=== PATIENT | male | born 1960 | race Caucasian/White ===

== ENCOUNTER 2018-03-04 02:55 | Emergency (ER) | payer OTHER ==
[2018-03-04] MEDS ORDERED: ONDANSETRON 4 MG/2 ML VIAL ONE (03:29)
[2018-03-04] MEDS ORDERED: FAMOTIDINE 20 MG/2 ML VIAL IV ONE (03:31)
[2018-03-04] MEDS ORDERED: LORazepam 2 MG/ML VIAL ONE (03:31)
[2018-03-04] MEDS ORDERED: NA CHLORIDE 0.9% 1,000 ML ONE (03:31)
[2018-03-04 04:03] LABS: Absolute Lymphocytes (CBC) 3.4 K/uL (0.7-4.9); Absolute Monocytes 0.8 K/uL (0.1-1.3); Absolute Neutrophil 6.3 K/uL (1.8-8.0); Basophils % 1.2 % (0-1.3); Hematocrit 49.4 % (39.6-49.0); Lymphocytes % 31.4 % (15.3-44.8); MCV 94.7 fL (80-100); MPV 9.5 fL (7.6-11.3); Monocytes % 7.8 % (3.3-12.3); RBC Red Blood Cell Count 5.21 M/uL (4.33-5.43)
[2018-03-04 04:07] LABS: Urine Blood 2+ (NEG); Urine Glucose NEGATIVE (NEG); Urine Protein NEGATIVE (NEG); Urine Specific Gravity 1.025 (1.005-1.030); Urine pH 5.5 (5.0-7.0)
[2018-03-04 04:07] LABS: Protime INR 1.03
[2018-03-04 04:12] LABS: Potassium 4.2 mEq/L (3.6-5.0)
[2018-03-04 04:18] LABS: Albumin 4.4 g/dL (3.2-5.5); Bilirubin Direct 0.1 mg/dL (0-0.2); Bilirubin Total 0.5 mg/dL (0.3-1.2); Magnesium 2.1 mg/dL (1.8-2.5); Protein, Total 7.4 g/dL (6.0-8.3)
--- NOTE | 2018-03-04 04:50 | EDPHYS ---
Physician Documentation [facility] Name: Juan C Monge Age: 57 yrs Sex: Male : 1960 Arrival Date: 03/04/2018 Time: 02:57 Bed 14 Private MD: ED Physician Gustavo Ramirez HPI: 03/04 03:32 This 57 yrs old Male presents to ER via Ambulatory with complaints of Anxiety.wa 03:32 The patient presents with a history of states feels anxious and has not slept for 2 wa days. denies chest pain. admits to baseline SOB as has COPD. admits to mild palpitations. denies dizziness. states has had intermittent vomiting and diarrhea the past 2 days. denies fever. Context: The symptoms occur at rest, with anxiety. Onset: The symptoms/episode began/occurred 2 day(s) ago. Duration: The patient or guardian reports multiple episodes, that wax and wane. Modifying factors: The symptoms are aggravated by nothing. The symptoms are alleviated by nothing. Associated signs and symptoms: Pertinent positives: anxiety, Pertinent negatives: chest pain, cough, fever, lightheadedness, SOB. Severity of symptoms: At their worst the symptoms were moderate in the emergency department the symptoms are unchanged. The patient has experienced similar episodes in the past. The patient has not recently seen a physician. Historical: - Allergies: 03:13 No Known Allergies; bb - PMHx: 03:13 Myocardial infarction; Atrial Fib; COPD; skull fracture; bb - PSHx: 03:13 Appendectomy; bb - Immunization history:: Adult Immunizations not up to date. - Social history:: Smoking status: Patient uses tobacco products, smokes two packs cigarettes per day. - Ebola Screening: : No symptoms or risks identified at this time. - Family history:: not pertinent. ROS: 03:40 Constitutional: Negative for fever, chills, and weight loss, Eyes: Negative for injury, wa pain, redness, and discharge, ENT: Negative for injury, pain, and discharge, Neck: Negative for injury, pain, and swelling, Abdomen/GI: Negative for abdominal pain, nausea, vomiting, diarrhea, and constipation, Back: Negative for injury and pain, : Negative for injury, bleeding, discharge, and swelling, MS/Extremity: Negative for injury and deformity, Skin: Negative for injury, rash, and discoloration, Neuro: Negative for headache, weakness, numbness, tingling, and seizure, Psych: Negative for depression, anxiety, suicide ideation, homicidal ideation, and hallucinations. 03:40 Cardiovascular: Positive for palpitations, Negative for chest pain, edema, orthopnea. 03:40 Respiratory: Negative for shortness of breath. Exam: 03:41 Constitutional: This is a well developed, well nourished patient who is awake, alert, wa and in no acute distress. Head/Face: Normocephalic, atraumatic. Eyes: Pupils equal round and reactive to light, extra-ocular motions intact. Lids and lashes normal. Conjunctiva and sclera are non-icteric and not injected. Cornea within normal limits. Periorbital areas with no swelling, redness, or edema. ENT: Nares patent. No nasal discharge, no septal abnormalities noted. Tympanic membranes are normal and external auditory canals are clear. Oropharynx with no redness, swelling, or masses, exudates, or evidence of obstruction, uvula midline. Mucous membranes moist. Neck: Trachea midline, no thyromegaly or masses palpated, and no cervical lymphadenopathy. Supple, full range of motion without nuchal rigidity, or vertebral point tenderness. No Meningismus. Chest/axilla: Normal chest wall appearance and motion. Nontender with no deformity. No lesions are appreciated. Abdomen/GI: Soft, non-tender, with normal bowel sounds. No distension or tympany. No guarding or rebound. No evidence of tenderness throughout. Back: No spinal tenderness. No costovertebral tenderness. Full range of motion. Skin: Warm, dry with normal turgor. Normal color with no rashes, no lesions, and no evidence of cellulitis. MS/ Extremity: Pulses equal, no cyanosis. Neurovascular intact. Full, normal range of motion. Neuro: Awake and alert, GCS 15, oriented to person, place, time, and situation. Cranial nerves II-XII grossly intact. Motor strength 5/5 in all extremities. Sensory grossly intact. Cerebellar exam normal. Normal gait. Psych: Awake, alert, with orientation to person, place and time. Behavior, mood, and affect are within normal limits. 03:41 Cardiovascular: Rate: tachycardic, Rhythm: regular, Pulses: no pulse deficits are appreciated, Heart sounds: normal, Edema: is not appreciated, JVD: is not appreciated. 03:41 Respiratory: the patient does not display signs of respiratory distress, Respirations: normal, Breath sounds: decreased breath sounds, that are mild, are scattered, wheezing: expiratory is scattered, Respiratory rate: nml Vital Signs: 03:13 BP 176 / 99; Pulse 106; Resp 22 S; Temp 97.7(O); Pulse Ox 94% on R/A; bb 03:44 BP 134 / 102; Pulse 90; Resp 20; Pulse Ox 94% 1 lpm ; Pain 0/10; cr4 04:00 BP 135 / 86; Pulse 86; Resp 18; Pulse Ox 95% ; Pain 0/10; cr4 05:06 BP 123 / 93; Pulse 87; Resp 22; Temp 98.4; Pulse Ox 94% ; Pain 0/10; cr4 MDM: 03:09 Patient medically screened. ca 03:42 Differential diagnosis: arrythmia, dehydration, stress disorder. ca 04:47 Data reviewed: vital signs, nurses notes, lab test result(s), EKG, radiologic studies. ca Test interpretation: by ED physician or midlevel provider: CXR: no acute process. COPD. labs noted wnl. EKG: sinus tach. Response to treatment: the patient's symptoms have markedly improved after treatment. ED course: improved. rested with ativan. HR 91 at time of d/c. denies complaints. 03/04 03:23 Order name: Basic Metabolic Panel; Complete Time: 04:35 03/04 03:23 Order name: BNP; Complete Time: 04:35 03/04 03:23 Order name: CBC with Diff; Complete Time: 04:35 03/04 03:23 Order name: CPK; Complete Time: 04:35 03/04 03:23 Order name: LFT's; Complete Time: 04:35 03/04 03:23 Order name: Magnesium; Complete Time: 04:35 03/04 03:23 Order name: PT-INR 03/04 03:23 Order name: Ptt, Activated; Complete Time: 04:35 03/04 03:23 Order name: Troponin (emerg Dept Use Only); Complete Time: 04:35 03/04 03:23 Order name: XRAY Chest (1 view) 03/04 03:52 Order name: Urine Dipstick--Ancillary (enter results); Complete Time: 04:34 03/04 03:23 Order name: EKG; Complete Time: 03:24 ca 03/04 03:23 Order name: Cardiac monitoring; Complete Time: 03:25 ca 03/04 03:23 Order name: EKG - Nurse/Tech; Complete Time: 03:25 ca 03/04 03:23 Order name: IV Saline Lock; Complete Time: 03:25 03/04 03:23 Order name: Labs collected and sent; Complete Time: 03:25 ca 03/04 03:23 Order name: O2 Per Protocol; Complete Time: 03:25 03/04 03:23 Order name: O2 Sat Monitoring; Complete Time: 03:25 ca 03/04 03:23 Order name: Urine Dipstick-Ancillary (obtain specimen); Complete Time: 03: ca Administered Medications: 03:38 Drug: NS 0.9% 1000 ml Route: IV; Rate: 1 bolus; Site: right hand; cr4 04:30 Follow up: IV Status: Completed infusion; IV Intake: 1000ml cr4 03:39 Drug: Zofran 4 mg Route: IVP; Site: right hand; cr4 04:04 Follow up: Response: No adverse reaction cr4 03:40 Drug: Pepcid 20 mg Route: IVP; Site: right hand; cr4 04:04 Follow up: Response: No adverse reaction cr4 03:41 Drug: Ativan 1 mg Route: IVP; Site: right hand; cr4 04:04 Follow up: Response: No adverse reaction; Anxiety decreased cr4 Disposition: 03/04/18 04:49 Discharged to Home. Impression: palpitations, insomnia, dehydration. - Condition is Stable. - Prescriptions for Ativan 0.5 mg Oral Tablet - take 1 tablet by ORAL route At bedtime As needed; 5 tablet. Albuterol Sulfate 90 mcg/actuation - inhale 1-2 puff by INHALATION route every 4-6 hours; 1 Inhaler. - Medication Reconciliation Form, Thank You Letter, Antibiotic Education, Prescription Opioid Use form. - Follow up: Dameon Cedillo MD; When: 2 - 3 days; Reason: check your lungs. - Problem is new. - Symptoms have improved. - Notes: take medicines as prescribed. follow up with the lung doctor as discussed Signatures: Dispatcher [employer] Mecca Colon RN RN bb Coral Palomo RN RN cr4 Gustavo Ramirez MD MD wa Corrections: (The following items were deleted from the chart) 05:12 04:49 03/04/2018 04:49 Discharged to Home. Impression: palpitations; insomnia; cr4 dehydration. Condition is Stable. Forms are Medication Reconciliation Form, Thank You Letter, Antibiotic Education, Prescription Opioid Use. Follow up: Dameon Cedillo; When: 2 - 3 days; Reason: check your lungs. Problem is new. Symptoms have improved. isabelle
--- NOTE | 2018-03-04 04:50 | ER ---
Nurse's Notes [facility] Name: Juan C Monge Age: 57 yrs Sex: Male : 1960 Arrival Date: 03/04/2018 Time: 02:57 Bed 14 Private MD: Diagnosis: palpitations;insomnia;dehydration Presentation: 03/04 03:09 Presenting complaint: Patient states: he is feeling anxious and restless, has a cough bb and numbness to bilateral legs. Transition of care: patient was not received from another setting of care. Onset of symptoms was March 04, 2018. Risk Assessment: Do you want to hurt yourself or someone else? Patient reports no desire to harm self or others. Initial Sepsis Screen: Does the patient meet any 2 criteria? No. Patient's initial sepsis screen is negative. Does the patient have a suspected source of infection? No. Patient's initial sepsis screen is negative. Care prior to arrival: None. 03:09 Method Of Arrival: Ambulatory bb 03:09 Acuity: JESSI 3 bb Historical: - Allergies: 03:13 No Known Allergies; bb - PMHx: 03:13 Myocardial infarction; Atrial Fib; COPD; skull fracture; bb - PSHx: 03:13 Appendectomy; bb - Immunization history:: Adult Immunizations not up to date. - Social history:: Smoking status: Patient uses tobacco products, smokes two packs cigarettes per day. - Ebola Screening: : No symptoms or risks identified at this time. - Family history:: not pertinent. Screenin:10 Abuse screen: Denies threats or abuse. Nutritional screening: No deficits noted. cr4 Tuberculosis screening: No symptoms or risk factors identified. Fall Risk None identified. Assessment: 03:00 General: Appears ill, slender, well groomed, Behavior is calm, cooperative, anxious. cr4 Pain: Denies pain. Neuro: Level of Consciousness is awake, alert, obeys commands, Oriented to person, place, time, situation, Appropriate for age Lens Hardener are equal bilaterally Moves all extremities. Gait is steady, Speech is normal, Facial symmetry appears normal, Pupils are PERRLA, Reports blurred vision chronic. numbness in right leg and left leg chronic Denies difficulty swallowing, headache. Cardiovascular: Denies chest pain, palpitations, Heart tones S1 S2 Capillary refill < 3 seconds is brisk Rhythm is sinus tachycardia. Respiratory: Reports shortness of breath at rest hx COPD. cough that is productive, hacking, Breath sounds with rhonchi bilaterally. GI: Reports nausea, vomiting, Patient currently denies abdominal pain. : Denies burning with urination, inability to void, urinary frequency. EENT: No deficits noted. Derm: No deficits noted. Musculoskeletal: No deficits noted. Capillary refill < 3 seconds, Range of motion: intact in all extremities. 04:01 Reassessment: Patient and/or family updated on plan of care and expected duration. Pain cr4 level reassessed. Patient is alert, oriented x 3, equal unlabored respirations, skin warm/dry/pink. patient feels relaxed.. 04:30 Reassessment: Patient states feeling better. Patient states symptoms have improved. cr4 patient with eyes closed breathing regular at bedside.. Vital Signs: 03:13 BP 176 / 99; Pulse 106; Resp 22 S; Temp 97.7(O); Pulse Ox 94% on R/A; bb 03:44 BP 134 / 102; Pulse 90; Resp 20; Pulse Ox 94% 1 lpm ; Pain 0/10; cr4 04:00 BP 135 / 86; Pulse 86; Resp 18; Pulse Ox 95% ; Pain 0/10; cr4 05:06 BP 123 / 93; Pulse 87; Resp 22; Temp 98.4; Pulse Ox 94% ; Pain 0/10; cr4 ED Course: 02:57 Patient arrived in ED. es 03:09 Gustavo Ramirez MD is Attending Physician. wa 03:10 Triage completed. bb 03:13 Arm band placed on Patient placed in an exam room, on a stretcher, on pulse oximetry. bb Family accompanied patient. 03:21 EKG done, by ED staff, reviewed by Gustavo Ramirez MD. mt 03:30 Patient has correct armband on for positive identification. Bed in low position. Side cr4 rails up X2. Warm blanket given. 03:31 Inserted saline lock: 20 gauge in right hand, using aseptic technique. Blood collected. tl2 03:38 X-ray completed. Portable x-ray completed in exam room. Patient tolerated procedure kw well. 03:39 XRAY Chest (1 view) In Process Unspecified. EDMS 04:48 Dameon Cedillo MD is Referral Physician. wa 05:05 No provider procedures requiring assistance completed. IV discontinued, intact, cr4 bleeding controlled, No redness/swelling at site. Administered Medications: 03:38 Drug: NS 0.9% 1000 ml Route: IV; Rate: 1 bolus; Site: right hand; cr4 04:30 Follow up: IV Status: Completed infusion; IV Intake: 1000ml cr4 03:39 Drug: Zofran 4 mg Route: IVP; Site: right hand; cr4 04:04 Follow up: Response: No adverse reaction cr4 03:40 Drug: Pepcid 20 mg Route: IVP; Site: right hand; cr4 04:04 Follow up: Response: No adverse reaction cr4 03:41 Drug: Ativan 1 mg Route: IVP; Site: right hand; cr4 04:04 Follow up: Response: No adverse reaction; Anxiety decreased cr4 Intake: 04:30 IV: 1000ml; Total: 1000ml. cr4 Outcome: 04:49 Discharge ordered by . wa 05:11 Discharged to home ambulatory, with significant other. cr4 05:11 Condition: improved 05:11 Discharge instructions given to patient, significant other, Instructed on discharge instructions, follow up and referral plans. medication usage, benefits of quitting smoking, Demonstrated understanding of instructions, follow-up care, medications, Prescriptions given X 2. 05:12 Patient left the ED. cr4 Signatures: Dispatcher [employer] Noris Ayon Brenda RN RN Coral Gillespie RN RN cr4 Hortencia Hernandez Taylor, RN RN garrison2 Delmi Gomez mt, William, MD MD wa Corrections: (The following items were deleted from the chart) 03:15 03:09 Presenting complaint: Patient states: he is feeling anxious and restless bb bb 05:11 03:30 No provider procedures requiring assistance completed. cr4 cr4 05:11 03:30 IV discontinued, intact, bleeding controlled, No redness/swelling at site. cr4 cr4
[2018-03-04 07:19] VITALS: BP 123/93; TEMP 98.4; O2SAT 94
--- NOTE | 2018-03-04 10:11 | RAD REPORT ---
EXAM DESCRIPTION: Em Single View03/04/2018 3:39 am CLINICAL HISTORY: Chest pain COMPARISON: 2013 FINDINGS: The lungs are hyperaerated. The lungs appear clear of acute infiltrate. The heart is norm al size IMPRESSION: COPD without visualization acute abnormality
--- NOTE | 2018-03-04 13:43 | EKG ---
Test Date: 2018-03-04 Test Time: 03:16:30 Machine Dyer: CLARENCE MEASUREMENT RESULTS: Intervals: Rate: 103 NH: 136 QRSD: 92 QT: 340 QTc: 445 [place]: P: 87 NH: 136 QRS: 79 T: 90 INTERPRETIVE STATEMENTS: Sinus tachycardia Right atrial enlargement Borderline ECG No previous ECG available for comparison Electronically Signed On 03-04-18 13:42:55 CDT by Saleem Bailey
== END 2018-03-04 05:12 | disposition home or self-care (01) ==
LOC: ER 02:55
DX: E86.0 Dehydration (principal); G47.00 Insomnia, unspecified; F17.210 Nicotine dependence, cigarettes, uncomplicated; J44.9 Chronic obstructive pulmonary disease, unspecified; I25.2 Old myocardial infarction
CPT/HCPCS: 36415; 71045; 80048; 80076; 81003; 82550; 83735; 83880; 84484; 85025; 85610; 85730; 93005; 96361; 96374; 96375; 99285; J2405; J7030

== ENCOUNTER 2018-03-13 20:27 | Observation (INO) | payer OTHER ==
[2018-03-13] MEDS ORDERED: NA CHLORIDE 0.9% 500 ML ONE (21:00)
[2018-03-13] MEDS ORDERED: LEVALBUTEROL 1.25 MG/3 ML NEB ONE (21:00)
--- NOTE | 2018-03-13 21:09 | RAD REPORT ---
EXAM DESCRIPTION: CT - Head Brain Wo Cont - 03/13/2018 8:57 pm CLINICAL HISTORY: Dizziness;Headache COMPARISON: No comparisons TECHNIQUE: All CT scans are performed using dose optimization technique as appropriate and may inclu de automated exposure control or mA/KV adjustment according to patient size. FINDINGS: No intracranial hemorrhage, hydrocephalus or extra-axial fluid collection.An area of dimin ished density is seen in the right posterior parietal lobe white matter measuring approximately 3.1 x 2.6 cm. No midline shift. The paranasal sinuses and mastoids are clear. The calvarium is intact. IMPRESSION: Nonspecific area of diminished density in the white matter right posterior parietal lobe (3.1 x 2.6 cm). Subacute CVA in this region is a possibility. Recommend MR brain imaging with contr ast for further assessment.
[2018-03-13 21:24] LABS: Absolute Monocytes 0.6 K/uL (0.1-1.3); Absolute Neutrophil 7.2 K/uL (1.8-8.0); Basophils % 0.7 % (0-1.3); Eosinophils % 1.1 % (0-4.4); Hematocrit 48.5 % (39.6-49.0); Lymphocytes % 19.9 % (15.3-44.8); MCH 31.8 pg (27.0-35.0); MPV 9.2 fL (7.6-11.3); RBC Red Blood Cell Count 5.16 M/uL (4.33-5.43)
--- NOTE | 2018-03-13 21:28 | ER ---
Nurse's Notes [facility] Name: Juan C Monge Age: 57 yrs Sex: Male : 1960 Arrival Date: 03/13/2018 Time: 20:28 Bed 15 Private MD: Diagnosis: Weakness;Chronic obstructive pulmonary disease, unspecified;Subacute CVA Presentation: 03/13 20:36 Presenting complaint: Patient states: high blood pressure, light headed, blurred vision ak1 since 1800. Transition of care: patient was not received from another setting of care. Onset of symptoms was March 13, 2018. Risk Assessment: Do you want to hurt yourself or someone else? Patient reports no desire to harm self or others. Initial Sepsis Screen: Does the patient meet any 2 criteria? No. Patient's initial sepsis screen is negative. Does the patient have a suspected source of infection? No. Patient's initial sepsis screen is negative. Care prior to arrival: None. 20:36 Method Of Arrival: Ambulatory ak1 20:36 Acuity: JESSI 3 ak1 Historical: - Allergies: 20:38 No Known Allergies; ak1 - Home Meds: 20:38 None [Active]; ak1 - PMHx: 20:38 Atrial Fib; COPD; Myocardial infarction; skull fracture; ak1 - PSHx: 20:38 Appendectomy; ak1 - Immunization history:: Adult Immunizations unknown. - Social history:: Smoking status: Patient uses tobacco products, smokes two packs cigarettes per day. - Ebola Screening: : No symptoms or risks identified at this time. - Family history:: not pertinent. - Hospitalizations: : No recent hospitalization is reported. Screenin:33 Abuse screen: Denies threats or abuse. Denies injuries from another. Nutritional ao screening: No deficits noted. Tuberculosis screening: No symptoms or risk factors identified. Fall Risk None identified. Assessment: 20:50 General: Appears in no apparent distress. comfortable, Behavior is calm, cooperative, ao appropriate for age, Reports High Blood pressure problem with symptoms. Pain: Denies pain. Neuro: Level of Consciousness is awake, alert, obeys commands, Oriented to person, place, time, situation, Appropriate for age Moves all extremities. Gait is steady, Speech is normal, Facial symmetry appears normal. Cardiovascular: Capillary refill < 3 seconds Patient's skin is warm and dry. Respiratory: Airway is patent Respiratory effort is even, unlabored, Respiratory pattern is regular, symmetrical. GI: Abdomen is flat, non-distended. : No signs and/or symptoms were reported regarding the genitourinary system. EENT: No signs and/or symptoms were reported regarding the EENT system. Derm: Skin is dry, Skin is pink, warm \T\ dry. Skin temperature is warm. Musculoskeletal: Circulation, motion, and sensation intact. Range of motion: intact in all extremities. 21:20 Reassessment: Dr England at bedside. Patient to stay in the hospital to follow up for an ao MRI per Dr England. 21:40 Reassessment: Patient appears in no apparent distress at this time. Patient and/or ao family updated on plan of care and expected duration. Pain level reassessed. Patient is alert, oriented x 3, equal unlabored respirations, skin warm/dry/pink. Waiting on admitting Dr chun. Vital Signs: 20:38 BP 131 / 94; Pulse 102; Resp 18; Temp 98; Pulse Ox 93% on R/A; Weight 72.57 kg (R); ak1 Height 5 ft. 10 in. (177.80 cm); Pain 0/10; 21:40 BP 152 / 80; Pulse 98; Resp 18; Pulse Ox 96% on R/A; Pain 0/10; ao 20:38 Body Mass Index 22.96 (72.57 kg, 177.80 cm) ak1 ED Course: 20:28 Patient arrived in ED. es 20:37 Triage completed. ak1 20:38 Arm band placed on Patient placed in an exam room, on a stretcher, Patient notified of ak1 wait time. 20:40 Genaro England MD is Attending Physician. rn 20:52 John Marcial RN is Primary Nurse. ao 20:56 CT completed. Patient tolerated procedure well. Patient moved to CT via wheelchair. nj Patient moved back from CT. 20:57 CT Head Brain wo Cont In Process Unspecified. EDMS 21:00 Inserted saline lock: 22 gauge in right hand, using aseptic technique. Blood collected. ao 21:27 Nestor Hackett MD is Hospitalizing Provider. rn 21:33 Patient has correct armband on for positive identification. monitoring specialist on. Pulse ao ox on. NIBP on. 23:22 No provider procedures requiring assistance completed. Patient admitted, IV remains in ao place. Administered Medications: 21: Drug: Xopenex 1.25 mg Route: Inhalation; ao 23: Follow up: Response: No adverse reaction ao Drug: NS 0.9% 500 ml Route: IV; Rate: bolus; Site: right hand; ao 23:22 Follow up: IV Status: Completed infusion; IV Intake: 500ml ao Intake: 23: IV: 500ml; Total: 500ml. ao Outcome: : Decision to Hospitalize by Provider. rn 23:22 Admitted to Med/surg accompanied by tech, room 225, Report called to Else RN kristie 23: Condition: stable 23:22 Instructed on the need for admit. 23:24 Patient left the ED. ao Signatures: Dispatcher [employer] Noris Ayon Roman, MD MD rn Krenek, Amber, RN RN akJohn Gibson RN Jonny Morales
--- NOTE | 2018-03-13 21:28 | EDPHYS ---
Physician Documentation [facility] Name: Juan C Monge Age: 57 yrs Sex: Male : 1960 Arrival Date: 03/13/2018 Time: 20:28 Bed 15 Private MD: ED Physician Genaro England HPI: 03/13 21:21 This 57 yrs old Male presents to ER via Ambulatory with complaints of High rn Blood Pressure. 21:22 The patient presents with dizziness, generalized weakness, feeling off balance. Onset: rn The symptoms/episode began/occurred this morning. Modifying factors: The symptoms are alleviated by nothing, the symptoms are aggravated by nothing. Severity of symptoms: At their worst the symptoms were mild in the emergency department the symptoms have improved. The patient has experienced similar episodes in the past. Reports "problems for a while", but this morning got worse, feels lightheaded/dizzy/blurred vision, no focal weakness or numbness, began in AM, got worse early afternoon. Has had cardiac arrest in past, but doesn't take any medication, takes intermittent baby aspirin. Currently feels better, asymptomatic.. Historical: - Allergies: 20:38 No Known Allergies; ak1 - Home Meds: 20:38 None [Active]; ak1 - PMHx: 20:38 Atrial Fib; COPD; Myocardial infarction; skull fracture; ak1 - PSHx: 20:38 Appendectomy; ak1 - Immunization history:: Adult Immunizations unknown. - Social history:: Smoking status: Patient uses tobacco products, smokes two packs cigarettes per day. - Ebola Screening: : No symptoms or risks identified at this time. - Family history:: not pertinent. - Hospitalizations: : No recent hospitalization is reported. ROS: 21:22 Constitutional: Negative for fever, chills, and weight loss, Eyes: Negative for injury, rn pain, redness, and discharge, Neck: Negative for injury, pain, and swelling, Cardiovascular: Negative for chest pain, palpitations, and edema, Respiratory: Negative for shortness of breath, cough, wheezing, and pleuritic chest pain, Abdomen/GI: Negative for abdominal pain, nausea, vomiting, diarrhea, and constipation, Back: Negative for injury and pain, MS/Extremity: Negative for injury and deformity, Skin: Negative for injury, rash, and discoloration, Neuro: Negative for headache, numbness, tingling, and seizure. Exam: 21:22 Constitutional: This is a well developed, well nourished patient who is awake, alert, rn and in no acute distress. Head/Face: Normocephalic, atraumatic. Eyes: Pupils equal round and reactive to light, extra-ocular motions intact. Lids and lashes normal. Conjunctiva and sclera are non-icteric and not injected. Cornea within normal limits. Periorbital areas with no swelling, redness, or edema. Neck: Trachea midline, no thyromegaly or masses palpated, and no cervical lymphadenopathy. Supple, full range of motion without nuchal rigidity, or vertebral point tenderness. No Meningismus. Cardiovascular: tachycardic, regular, no murmur Respiratory: faint exp wheezing throughout, speaking full sentences, no retractions. Abdomen/GI: Soft, non-tender, with normal bowel sounds. No distension or tympany. No guarding or rebound. No evidence of tenderness throughout. MS/ Extremity: Pulses equal, no cyanosis. Neurovascular intact. Full, normal range of motion. Equal circumference. Neuro: Awake and alert, GCS 15, oriented to person, place, time, and situation. Cranial nerves II-XII grossly intact. Motor strength 5/5 in all extremities. Sensory grossly intact. Cerebellar exam normal. Normal gait. Vital Signs: 20:38 BP 131 / 94; Pulse 102; Resp 18; Temp 98; Pulse Ox 93% on R/A; Weight 72.57 kg (R); ak1 Height 5 ft. 10 in. (177.80 cm); Pain 0/10; 21:40 BP 152 / 80; Pulse 98; Resp 18; Pulse Ox 96% on R/A; Pain 0/10; ao 20:38 Body Mass Index 22.96 (72.57 kg, 177.80 cm) ak1 MDM: 20:40 Patient medically screened. rn 21:22 Differential diagnosis: CVA, generalized weakness, hyperventilation, hypovolemia, rn idiopathic dizziness, TIA. Differential diagnosis: cardiac arrhythmia. Data reviewed: vital signs, nurses notes. Data reviewed: lab test result(s), EKG, radiologic studies, CT scan, and as a result, I will admit patient. Counseling: I had a detailed discussion with the patient and/or guardian regarding: the historical points, exam findings, and any diagnostic results supporting the discharge/admit diagnosis, lab results, radiology results, the need for further work-up and treatment in the hospital. Response to treatment: the patient's symptoms have markedly improved after treatment, the patient's condition has returned to base line, the patient is now symptom free, and as a result, I will admit patient. Admission orders: after a detailed discussion of the patient's condition and case, the admit orders are written by me. ED course: Pt with area on CT brain concerning for subacute CVA, no tpa indicated given back to baseline and symptoms began this AM/afternoon, out of window. Will admit for MRI and medication recommendations as non-compliant.. 03/13 20:47 Order name: Basic Metabolic Panel; Complete Time: 23:15 rn 03/13 20:47 Order name: CBC with Diff; Complete Time: 21:29 rn 03/13 20:47 Order name: CT Head Brain wo Cont; Complete Time: 21:15 rn 03/13 20:47 Order name: Magnesium; Complete Time: 23:15 rn 03/13 20:47 Order name: O2 Sat Monitoring; Complete Time: 20:53 rn 03/13 20:47 Order name: EKG; Complete Time: 20:48 rn 03/13 20:47 Order name: Cardiac monitoring; Complete Time: : rn 03/13 20:47 Order name: EKG - Nurse/Tech; Complete Time: : rn 03/13 20:47 Order name: IV Saline Lock; Complete Time: 21: rn 03/13 20:47 Order name: Labs collected and sent; Complete Time: : rn 03/13 20:47 Order name: NPO; Complete Time: 20:53 rn Administered Medications: 21:10 Drug: Xopenex 1.25 mg Route: Inhalation; ao 23:22 Follow up: Response: No adverse reaction ao 21:28 Drug: NS 0.9% 500 ml Route: IV; Rate: bolus; Site: right hand; ao 23:22 Follow up: IV Status: Completed infusion; IV Intake: 500ml ao Disposition: 03/13/18 21:27 Hospitalization ordered by Nestor Hackett for Inpatient Admission. Preliminary diagnosis are Weakness, Chronic obstructive pulmonary disease, unspecified, Subacute CVA. - Bed requested for Telemetry/MedSurg (Inpatient). - Status is Inpatient Admission. ao - Condition is Stable. - Problem is new. - Symptoms have improved. UTI on Admission? No Signatures: Dispatcher [employer] EDMS Argelia Chin RN Genaro Pearce MD MD rn Krenek, Amber, RN RN ak1 John Marcial, RN RN ao Krissy Jenkins Corrections: (The following items were deleted from the chart) 21:24 21:22 Constitutional: Negative for fever, chills, and weight loss, Eyes: Negative for rn injury, pain, redness, and discharge, Neck: Negative for injury, pain, and swelling, Cardiovascular: Negative for chest pain, palpitations, and edema, Respiratory: Negative for shortness of breath, cough, wheezing, and pleuritic chest pain, Abdomen/GI: Negative for abdominal pain, nausea, vomiting, diarrhea, and constipation, Back: Negative for injury and pain, MS/Extremity: Negative for injury and deformity, Skin: Negative for injury, rash, and discoloration, Neuro: Negative for headache, numbness, tingling, and seizure, rn 21:33 21:27 Hospitalization Ordered by Nestor Hackett MD for Inpatient Admission. Preliminary eb diagnosis is Weakness; Chronic obstructive pulmonary disease, unspecified; Subacute CVA. Bed requested for Telemetry/MedSurg (Inpatient). Status is Inpatient Admission. Condition is Stable. Problem is new. Symptoms have improved. UTI on Admission? No. rn 21:35 21:33 03/13/2018 21:27 Hospitalization Ordered by Nestor Hackett MD for Inpatient mw Admission. Preliminary diagnosis is Weakness; Chronic obstructive pulmonary disease, unspecified; Subacute CVA. Bed requested for Telemetry/MedSurg (Inpatient). Status is Inpatient Admission. Condition is Stable. Problem is new. Symptoms have improved. UTI on Admission? No. eb 23:24 21:35 03/13/2018 21:27 Hospitalization Ordered by Nestor Hackett MD for Inpatient ao Admission. Preliminary diagnosis is Weakness; Chronic obstructive pulmonary disease, unspecified; Subacute CVA. Bed requested for Telemetry/MedSurg (Inpatient). Status is Inpatient Admission. Condition is Stable. Problem is new. Symptoms have improved. UTI on Admission? No. mw
--- NOTE | 2018-03-13 22:18 | P.HP ---
Certification for Inpatient Patient admitted to: Inpatient With expected LOS: >2 Midnights Practitioner: I am a practitioner with admitting privileges, knowledge of patient current condition, hospital course, and medical plan of care. Services: Services provided to patient in accordance with Admission requirements found in Title 42 Section 412.3 of the Code of Federal Regulations Patient History Date of Service: 03/13/18 Reason for admission: subacute CVA History of Present Illness: Mr Monge is a 57 years old male with history of HTN, heavy smoker, COPD, CHF, who about 5 days ago start feeling restless, anxiety and bilateral lower extremity numbness. He came to ED, had negative work up and was discharged home. Today about 1600, he start having blurred vision, associated with headache and right foot numbness. At arrival to ED BP was 176/99. CT head was remarkable for a subacute right posterior parietal lobe ischemic stroke. The patient has not a PCP and is not taking any medication. At the time of my examination, he still remain symptomatic. Allergies No Known Allergies Allergy (Uncoded 03/13/18 21:55) Unknown Home Medications: NK [No Home Meds] 03/13/18 - Past Medical/Surgical History Has patient received pneumonia vaccine in the past: No Diabetic: No -: COPD -: paroxysmal A.Fib -: HTN -: Tobacco abuse -: Appendectomy - Family History Father -: Diabetes - Social History Smoking Status: Current every day smoker Alcohol use: Yes CD- Drugs: No Caffeine use: No Place of Residence: Home Review of Systems 10-point ROS is otherwise unremarkable Physical Examination - Physical Exam General: Alert, In no apparent distress HEENT: Atraumatic, PERRLA, Mucous membr. moist/pink, EOMI, Sclerae nonicteric Neck: Supple, 2+ carotid pulse no bruit, No LAD, Without JVD or thyroid abnormality Respiratory: Clear to auscultation bilaterally, Normal air movement Cardiovascular: Regular rate/rhythm, Normal S1 S2 Gastrointestinal: Normal bowel sounds, No tenderness Musculoskeletal: No tenderness Integumentary: No rashes Neurological: Normal speech, Normal strength at 5/5 x4 extr, Normal tone, Normal affect Lymphatics: No axilla or inguinal lymphadenopathy - Studies Laboratory Data (last 24 hrs) 03/13/18 21:10: WBC 10.0, Hgb 16.4, Hct 48.5, Plt Count 233 Assessment and Plan - Problems (Diagnosis) (1) COPD (chronic obstructive pulmonary disease) Current Visit: Yes Status: Acute Qualifiers: COPD type: unspecified COPD Qualified Code(s): J44.9 - Chronic obstructive pulmonary disease, unspecified (2) Tobacco abuse Current Visit: Yes Status: Acute (3) HTN (hypertension) Current Visit: Yes Status: Acute Qualifiers: Hypertension type: essential hypertension Qualified Code(s): I10 - Essential (primary) hypertension (4) CVA (cerebral vascular accident) Current Visit: Yes Status: Acute Qualifiers: CVA mechanism: unspecified Qualified Code(s): I63.9 - Cerebral infarction, unspecified - Plan The patient will be admitted to the hospital due to subacute ischemic stroke. Will order Brain MRI, ECHO, carotid doppler, Neurology consult. Also ASA, statins, lipid profile, and PT evaluation. - Advance Directives Does patient have a Living Will: No Does patient have a Durable POA for Healthcare: No - Code Status/Comfort Care Code Status Assessed: Yes Code Status: Full Code
[2018-03-13] MEDS ORDERED: ACETAMINOPHEN 500 MG TAB PO PRN (23:11)
[2018-03-13] MEDS ORDERED: ONDANSETRON 4 MG/2 ML VIAL IV PRN (23:11)
[2018-03-13 23:13] LABS: Magnesium 2.3 mg/dL (1.8-2.4); Potassium 4.1 mmol/L (3.5-5.1)
[2018-03-13] MEDS: NICOTINE 21 MG/PAT TD SCH (23:50)
[2018-03-14 01:09] VITALS: O2SAT 91
[2018-03-14 03:27] VITALS: BMI 22.7
[2018-03-14 05:43] LABS: Absolute Lymphocytes (CBC) 2.9 K/uL (0.7-4.9); Absolute Monocytes 0.5 K/uL (0.1-1.3); Absolute Neutrophil 4.2 K/uL (1.8-8.0); Basophils % 0.9 % (0-1.3); Eosinophils % 1.6 % (0-4.4); Hematocrit 44.3 % (39.6-49.0); Lymphocytes % 36.6 % (15.3-44.8); MCH 30.8 pg (27.0-35.0); MCV 94.3 fL (80-100); MPV 9.5 fL (7.6-11.3); Monocytes % 6.7 % (3.3-12.3); RBC Red Blood Cell Count 4.69 M/uL (4.33-5.43)
[2018-03-14 05:46] LABS: Potassium 3.8 mmol/L (3.5-5.1)
[2018-03-14 06:52] LABS: Urine Appearance CLEAR; Urine Bilirubin NEGATIVE (NEG); Urine Blood NEGATIVE (NEG); Urine Color YELLOW; Urine Glucose NEGATIVE (NEG); Urine Protein NEGATIVE (NEG); Urine pH 6.5 (5.0-7.0)
[2018-03-14 06:53] LABS: Urine Microscopic Reflex NO UMIC
[2018-03-14] MEDS ORDERED: ASPIRIN EC 81 MG TAB PO SCH (09:00)
[2018-03-14] MEDS ORDERED: ENOXAPARIN 40 MG/0.4 ML SQ SCH (09:00)
--- NOTE | 2018-03-14 09:03 | RAD REPORT ---
EXAM DESCRIPTION: RAD - Chest Pa And Lat (2 Views) - 03/14/2018 8:38 am CLINICAL HISTORY: Stroke Chest pain. COMPARISON: Chest Single View dated 03/04/2018; CHEST PA AND LAT 2 VIEW dated 08/12/2014 FINDINGS: The lungs are clear. The heart is normal in size. No displaced fractures. IMPRESSION: No acute or concerning finding suspected.
[2018-03-14] MEDS: NICOTINE 21 MG/PAT TD SCH (09:08)
--- NOTE | 2018-03-14 09:16 | RAD REPORT ---
EXAM DESCRIPTION: MRI - Brain Wo Cont - 03/14/2018 8:24 am CLINICAL HISTORY: eval for stroke CVA COMPARISON: MRA Head Wo Cont dated 03/14/2018; Head Brain Wo Cont dated 03/13/2018 TECHNIQUE: Multi-sequence, multiplanar MR imaging of the brain was performed without contrast. FINDINGS: No intracranial hemorrhage, hydrocephalus or extra-axial fluid collections.Area of T2/FLAI R hyperintensity in the posterior right parietal white matter with small cystic areas are noted. This has the appearance of gliosis from chronic CVA. No edema or shift of midline structures. No findings to suspect brain mass. DWI is negative for acute CVA. Midline structures are normally formed. Mastoid air cells and paranasal sinuses are clear. IMPRESSION: No acute CVA or acute intracranial process identified. Area of elevated T2/FLAIR signal in the right posterior parietal white matter has the appearance of encephalomalacia from chronic CVA.
--- NOTE | 2018-03-14 09:20 | RAD REPORT ---
EXAM DESCRIPTION: MRI - MRA Head Wo Cont - 03/14/2018 8:24 am CLINICAL HISTORY: CVA COMPARISON: Head Brain Wo Cont dated 03/13/2018; Brain Wo Cont dated 03/14/2018; Carotid Artery Bilate ral dated 03/14/2018 FINDINGS: 3D noncontrast [id number] MR angiography of the [place] was performed. No aneurysm, flow-limiting stenosis or vascular malformation is evident. origin of the right po sterior communicating artery is present, normal variant. The codominant vertebral arteries are seen. IMPRESSION: No significant flow abnormality of the [place] is identified.
--- NOTE | 2018-03-14 10:18 | RAD REPORT ---
EXAM DESCRIPTION: JANE - TODD - 03/14/2018 8:29 am CLINICAL HISTORY: Stroke-like symptoms, CVA COMPARISON: None. TECHNIQUE: Real-time sonographic evaluation of both carotid systems was performed. Grayscale evaluat ion of the vasculature performed. Duplex Doppler interrogation was performed with waveform tracing bi laterally. FINDINGS: Normal high resistance waveforms are noted in both external carotid arteries. The common c arotid arteries and internal carotid arteries show normal low resistance waveforms. Minimal plaquing changes are present within the of carotid bulb. No significant right-sided plaquing changes. On visual inspection no significant luminal narrowing identifiable. Peak systolic and end di astolic velocity values and the ICA/CCA ratios are in the non-hemodynamically significant range. Comm on carotid artery peak velocity values were 90 0.0 cm/second on the right and 85.8 cm/second on the l eft. Internal carotid velocity values ranged from 54 cm 54-80 cm/second on the right and 63-100 cm/se cond on the left. ICA/CCA ratios are 0.9 on the right and 1.2 on the left. No suspicious waveform pat tern. Antegrade flow seen in both vertebral arteries. Velocity values and ratios were recorded and are retained in the patient's imaging records. IMPRESSION: Minimal carotid plaquing changes. No evidence of a hemodynamically significant stenosis.
--- NOTE | 2018-03-14 15:35 | ECHO ---
HEIGHT: 5 ft 10 in WEIGHT: 158 lb 11.2 oz DATE OF STUDY: 03/14/[address]: Nestor Marques MD 2-DIMENSIONAL: YES M.MODE: YES DOPPLER: YES COLOR FLOW: YES TDS: YES PORTABLE: NO DEFINITY: NO BUBBLE STUDY: NO DIAGNOSIS: STROKE CARDIAC HISTORY: CATHERIZATION: NO SURGERY: NO PROSTHETIC VALVE: NO PACEMAKER: NO MEASUREMENTS (cm) DIASTOLIC (NORMALS) SYSTOLIC (NORMALS) IVSd 0.9 (0.6-1.2) LA Diam 2.4 (1.9-4.0) LVEF 35-40% LVIDd 4.4 (3.5-5.7) LVIDs 3.8 (2.0-3.5) %FS 15% LVPWd 0.9 (0.6-1.2) Ao Diam 2.7 (2.0-3.7) 2 DIMENSIONAL ASSESSMENT: RIGHT ATRIUM: NORMAL LEFT ATRIUM: NORMAL RIGHT VENTRICLE: NORMAL LEFT VENTRICLE: NORMAL SIZE TRICUSPID VALVE: NORMAL MITRAL VALVE: NORMAL PULMONIC VALVE: NORMAL AORTIC VALVE: NORMAL PERICARDIAL EFFUSION: NONE AORTIC ROOT: NORMAL LEFT VENTRICULAR WALL MOTION: MODERATE GLOBAL HYPOKINESIS. DOPPLER/COLOR FLOW: NORMAL COMMENTS: MODERATE GLOBAL HYPOKINESIS. LEFT VENTRICULAR EJECTION FRACTION 35-40%. NO THROMBUS. NO VEGETATION. TECHNOLOGIST: Abe TONG
--- NOTE | 2018-03-14 15:43 | EKG ---
Test Date: 2018-03-13 Test Time: 21:19:32 Sound Assistant: ERAN MEASUREMENT RESULTS: Intervals: Rate: 86 GA: 150 QRSD: 92 QT: 366 QTc: 437 [place]: P: 74 GA: 150 QRS: 60 T: 73 INTERPRETIVE STATEMENTS: Normal sinus rhythm with sinus arrhythmia Normal ECG Compared to ECG 03/04/2018 03:16:30 Sinus tachycardia no longer present Atrial abnormality no longer present Electronically Signed On 03-14-18 15:41:13 CDT by Randy Bautista
[2018-03-14 17:03] VITALS: BP 145/80; TEMP 97.8
--- NOTE | 2018-03-14 18:15 | PN ---
Date of Progress Note: 03/14/2018 Subjective: The patient seen and examined, chart reviewed, and case discussed with RN. The patient says that his symptoms have resolved. No longer having any vision difficulties, abnormalities, or di zziness. No gait abnormalities. Review of Systems: Negative except as above. Medications: Reviewed. Objective: Vital signs: Temperature 98, heart rate 91, blood pressure 153/83, respirations 20, and O2 92% on room air. General: Awake, alert, oriented x3. No acute distress CV: S1, S2. No murmurs. Regular rate and r hythm. Peripheral pulses present. Respiratory: Clear to auscultation bilaterally. No wheezing. No stridor. Gastrointestinal: Abdomen is soft, nontender, nondistended. Positive bowel sounds. Extremities: No clubbing, cyanosis, edema. Neuro: Cranial nerves 2 through 12 intact grossly. No focal neurological deficit. Speech is normal . Strength is 5/5 bilateral upper and lower extremities. Sensation intact to light touch. Skin: No rashes. Normal skin turgor. Laboratory Data: Sodium 138, potassium 3.8, chloride 103, CO2 32, BUN 17, creatinine 0.9, glucose 12 7, calcium 8.3, triglycerides 84, cholesterol 144, LDL 94, and HDL 33. WBC 7.8, H and H 14.5, 44.3, platelets 233, and neutrophils 54%. Brain MRA shows no significant flow abnormality of the [place] is identified. MRI of the brain shows no acute CVA or acute intracranial process identified. Area of elevated T2 FLAIR signal in the right posterior parietal white matter has the appearance of encephalomalacia from chronic CVA. Carotid artery ultrasound shows minimal carotid plaquing changes . No evidence of hemodynamically significant stenosis. Assessment: A 57-year-old male with; 1.Chronic obstructive pulmonary disease, chronic bronchitis. 2.Subacute cerebrovascular accident. CT scan of the brain was positive for right parietal infarct. MRI of the brain shows these changes to be more chronic. Carotid ultrasound does not show any hemod ynamically significant stenosis. Echocardiogram is pending at this time. The patient is unable to t olerate MRA of the neck. MRA of the brain does not show any abnormalities of the [place]. Dr. Rivas with Neurology has been consulted. Appreciate his input. I will continue with aspirin, st atin. 3.Nicotine dependence with cigarette smoking. The patient has been counseled. He understands this is the risk factor for stroke. 4.Essential hypertension. We will allow permissive hypertension due to stroke. 5.Paroxysmal atrial fibrillation, currently in sinus rhythm. 6.History of myocardial infarction, previous heart disease, [place] artery and [place] heart without a ngina, stable. 7.Gastrointestinal and deep venous thrombosis prophylaxis with PPI and Lovenox. Plan: Change to observation status. Follow up with Neurology recommendation. Likely discharge in t he next 24 hours once cleared by Neurology. Continue with PT, ST, and OT eval. SA/MODL Voice ID: [id number] Report ID: [id number]
--- NOTE | 2018-03-14 20:37 | P.DS ---
Admission Date: 03/13/18 Discharge Date: 03/14/18 Disposition: ROUTINE DISCHARGE Discharge Condition: GOOD Reason for Admission: subacute CVA - Problems (1) COPD (chronic obstructive pulmonary disease) Onset Date: 03/14/18 Current Visit: Yes Status: Acute Qualifiers: COPD type: unspecified COPD Qualified Code(s): J44.9 - Chronic obstructive pulmonary disease, unspecified (2) Tobacco abuse Onset Date: 03/14/18 Current Visit: Yes Status: Acute (3) HTN (hypertension) Onset Date: 03/14/18 Current Visit: Yes Status: Acute Qualifiers: Hypertension type: essential hypertension Qualified Code(s): I10 - Essential (primary) hypertension (4) CVA (cerebral vascular accident) Onset Date: 03/14/18 Current Visit: Yes Status: Acute Qualifiers: CVA mechanism: unspecified Qualified Code(s): I63.9 - Cerebral infarction, unspecified Brief History of Present Illness: Mr Monge is a 57 years old male with history of HTN, heavy smoker, COPD, CHF, who about 5 days ago start feeling restless, anxiety and bilateral lower extremity numbness. He came to ED, had negative work up and was discharged home. Today about 1600, he start having blurred vision, associated with headache and right foot numbness. At arrival to ED BP was 176/99. CT head was remarkable for a subacute right posterior parietal lobe ischemic stroke. The patient has not a PCP and is not taking any medication. At the time of my examination, he still remain symptomatic. Hospital Course: Mr Monge was admitted to the hospital due to visual disturbances. CT head reported subacute right posterior parietal lobe ischemic stroke. Subsequently he had a brain MRI, which was consistent with an area of elevated T2/FLAIR signal in the right posterior parietal white matter has the appearance of encephalomalacia from chronic CVA. Carotid doppler showed no evidence of significant stenosis. ECHO was remarkable for moderate global hypokynesis, with EF estimated at 35-40%. He was started on ASA, Statins and JOSE inhibitors. He was evaluated by Dr Rivas (Neurologist) who was agreed with the medical treatment. He was comfortable discharging the patient home today. He needs to continue on the medication stated above, and was recommended to be compliant. F/ U with Dr Rivas in 1-2 weeks, encourage to find a PCP as soon as possible. The patient will be discharged home in stable condition. Vital Signs/Physical Exam: Temp Pulse Resp BP Pulse Ox 97.8 F 81 20 145/80 H 92 03/14/18 16:00 03/14/18 16:00 03/14/18 16:00 03/14/18 16:00 03/14/18 16:00 General: Alert, In no apparent distress HEENT: Atraumatic, PERRLA, EOMI Neck: Supple, JVD not distended Respiratory: Clear to auscultation bilaterally, Diminished Cardiovascular: Regular rate/rhythm, Normal S1 S2 Gastrointestinal: Normal bowel sounds, No tenderness Musculoskeletal: No tenderness Integumentary: No rashes Neurological: Normal speech, Normal tone, Normal affect Lymphatics: No axilla or inguinal lymphadenopathy Laboratory Data at Discharge: WBC 7.8 K/uL (4.3-10.9) D 03/14/18 04:50 Hgb 14.5 g/dL (13.6-17.9) 03/14/18 04:50 Hct 44.3 % (39.6-49.0) 03/14/18 04:50 Plt Count 233 K/uL (152-406) 03/14/18 04:50 Sodium 138 mmol/L (136-145) 03/14/18 04:50 Potassium 3.8 mmol/L (3.5-5.1) 03/14/18 04:50 BUN 17 mg/dL (7-18) 03/14/18 04:50 Creatinine 0.90 mg/dL (0.55-1.3) 03/14/18 04:50 Glucose 127 mg/dL (74-106) H 03/14/18 04:50 Magnesium 2.3 mg/dL (1.8-2.4) 03/13/18 21:10 Triglycerides 84 mg/dL (<150) 03/14/18 04:50 Cholesterol 144 mg/dL (<200) 03/14/18 04:50 HDL Cholesterol 33 mg/dL (40-60) L 03/14/18 04:50 Cholesterol/HDL Ratio 4.36 03/14/18 04:50 Home Medications: Aspirin [Aspirin EC 81 MG] 81 mg PO DAILY #30 tablet. 03/14/18 Atorvastatin Calcium [Lipitor] 80 mg PO BEDTIME #30 tab 03/14/18 Benazepril HCl [Lotensin*] 10 mg PO DAILY #30 tab 03/14/18 New Medications: Aspirin [Aspirin EC 81 MG] 81 mg PO DAILY #30 tablet. Atorvastatin Calcium [Lipitor] 80 mg PO BEDTIME #30 tab Benazepril HCl [Lotensin*] 10 mg PO DAILY #30 tab Diet: AHA Activity: Ad dione Followup: Oral Rivas MD [ACTIVE - CAN ADMIT] - 1-2 Weeks Time spent managing pt's care (in minutes): 40
[2018-03-14] MEDS ORDERED: ATORVASTATIN 80 MG TAB PO SCH (21:00)
--- NOTE | 2018-03-15 02:58 | CON ---
Date of Consultation: 03/14/2018 Reason: Stroke/TIA. History: A 57-year-old gentleman with a history of congestive heart failure, has not really been loli ing any medications routinely, disabled. He does not normally seek care of physicians. He was in hi s usual state of health until yesterday when he had transient blurring to his vision, lasted several hours. He went out, started driving around the house. He thought perhaps the problem would improve but it did not, so he came to the emergency department, where evaluation revealed ischemic lesion in the right posterior parietal lobe. Given the location and the patient's symptomatology, he was admit anirudh. Since being admitted, visual blurriness is actually resolved completely. Brain MRI does not de monstrate any evidence of an acute infarct. There are cystic changes in the parietal region consiste nt with old ischemic event. MRA; no significant flow-limiting stenosis intracranially. Carotid Dopp ler; no hemodynamically significant stenosis. Echocardiogram; does demonstrate heart failure with an EF of 30% to 40% with global hypokinesis. As noted, the patient is back to his baseline. He is on aspirin. LDL was greater than 70s on intensive statin therapy. Consultation was requested. Past Medical History: As alluded to. Medications: None routinely. Allergies: NONE. Social History: Disabled. Smokes. Drinks normally. Independent basic activities of daily living. Family History: Negative. Review of Systems: General: General good health. Eyes: Negative. Visual disturbances noted. Ears, nose, Throat: No speech difficulties with the event. Cardiovascular: Heart failure. Pulmonary: Negative. GI: Negative. : Negative. Musculoskeletal: Negative. Neurologic: As noted. Psychiatric: Negative. Endocrine: Negative. Hematologic: Negative. Physical Examination: Vital Signs: He is afebrile. Vitals are stable. General: He is awake, alert, oriented to time, person, place, and situation. HEENT: Pupils are equal, round, and reactive. Ocular motion full. Ray full. Facial strength an d sensation are normal. Tongue protrudes evenly. Soft palate elevates symmetrically bilaterally. Extremities: Strength full. Sensation intact. Reflexes 1/4 symmetric. Toes are downgoing. Cerebellar: Demonstrates no ataxia. Gait is normal. Pertinent Laboratory Data: As noted in history of present illness. Impression: Prior stroke, transient ischemic attack. Plan: I think the patient could safely be discharged home with the addition of aspirin and intensive statin therapy. He should likely be on an JOSE inhibitor. Given the heart failure and history of hy pertension, I have taken the liberty of adding some low-dose benazepril to see if he tolerates that. The patient really needs a primary care physician. Thank you for the consult. LUPE Voice ID: [id number] Report ID: [id number]
[2018-03-15] MEDS ORDERED: BENAZEPRIL 10 MG TAB PO SCH (09:00)
== END 2018-03-14 21:24 | disposition home or self-care (01) ==
LOC: ER 20:27 → INTOOBSV 21:28 → ERHOLD 21:28 → 2ND 23:05
PROVIDERS: ADMIT Internal Medicine; ATTEND Internal Medicine
DX: G45.9 Transient cerebral ischemic attack, unspecified (principal); J44.9 Chronic obstructive pulmonary disease, unspecified; I48.0 Paroxysmal atrial fibrillation; I25.10 Atherosclerotic heart disease of native coronary artery without angina pectoris; I11.0 Hypertensive heart disease with heart failure; I50.9 Heart failure, unspecified; Z86.73 Personal history of transient ischemic attack (TIA), and cerebral infarction without residual deficits; I25.2 Old myocardial infarction; F17.210 Nicotine dependence, cigarettes, uncomplicated
CPT/HCPCS: 36415; 70450; 70544; 70551; 71046; 80048; 80061; 81003; 83735; 85025; 93005; 93306; 93880; 96360; 96361; 97163; 99285; G0378; J1650

== ENCOUNTER 2018-07-17 15:52 | Emergency (ER) | payer OTHER ==
--- NOTE | 2018-07-17 17:35 | ER ---
Nurse's Notes [facility] Name: Juan C Monge Age: 57 yrs Sex: Male : 1960 Arrival Date: 07/17/2018 Time: 15:53 Bed 17 Private MD: Luís Ramirez H Diagnosis: Essential (primary) hypertension Presentation: 07/17 15:56 Presenting complaint: Patient states: I think my BP is high, my head is hurting and I'm ph dizzy and my vision is blurry." Pt reports HTN and CVA, pt also reports cramps in andrés feet, only deficit from previous CVA is numbness in bottom of R foot. Transition of care: patient was not received from another setting of care. Onset of symptoms was July 17, 2018. Risk Assessment: Do you want to hurt yourself or someone else? Patient reports no desire to harm self or others. Initial Sepsis Screen: Does the patient meet any 2 criteria? No. Patient's initial sepsis screen is negative. Does the patient have a suspected source of infection? No. Patient's initial sepsis screen is negative. Care prior to arrival: pt reports taking usual morning , then a second dose of BP med at 1300, benazepril 10 mg. 15:56 Method Of Arrival: Ambulatory ph 15:56 Acuity: JESSI 3 ph Historical: - Allergies: 16:02 No Known Allergies; ph - PMHx: 16:02 Atrial Fib; COPD; Myocardial infarction; skull fracture; CVA; Hypertension; ph - PSHx: 16:02 Appendectomy; ph - Immunization history:: Adult Immunizations up to date. - Social history:: Smoking status: Patient uses tobacco products, smokes two packs cigarettes per day. Screenin:19 Abuse screen: Denies threats or abuse. Denies injuries from another. Nutritional ch screening: No deficits noted. Tuberculosis screening: No symptoms or risk factors identified. Fall Risk None identified. Assessment: 17:19 General: Appears in no apparent distress. comfortable, Behavior is calm, cooperative, ch appropriate for age. Pain: Denies pain. Neuro: No deficits noted. Level of Consciousness is awake, alert, obeys commands, Oriented to person, place, time, situation, Parachute Taper are equal bilaterally Moves all extremities. Full function Gait is steady, Speech is normal, Facial symmetry appears normal, Facial symmetry: tongue is midline, Pupils are PERRLA, Denies weakness blurred vision dizziness, difficulty swallowing, paresthesias numbness headache photophobia diplopia. Cardiovascular: No deficits noted. Denies chest pain, fatigue, lightheadedness. Respiratory: Airway is patent Respiratory effort is even, unlabored, Breath sounds are clear bilaterally. GI: No signs and/or symptoms were reported involving the gastrointestinal system. : No signs and/or symptoms were reported regarding the genitourinary system. EENT: No signs and/or symptoms were reported regarding the EENT system. Derm: Skin is intact, Skin is pink, warm \\T\\ dry. Musculoskeletal: No signs and/or symptoms reported regarding the musculoskeletal system. Vital Signs: 16:00 BP 117 / 72; Pulse 96; Resp 18; Temp 97.9; Pulse Ox 96% on R/A; Weight 72.57 kg; Height ph 5 ft. 10 in. (177.80 cm); Pain 1/10; 17:19 BP 134 / 84; Pulse 71; Resp 16; Temp 98.5; Pulse Ox 99% on R/A; Pain 0/10; ch 16:00 Body Mass Index 22.96 (72.57 kg, 177.80 cm) ph ED Course: 15:53 Patient arrived in ED. as 15:53 Luís Ramirez DO is Private Physician. as 16:00 Triage completed. ph 16:02 Arm band placed on. ph 17:13 Tyrell Leung MD is Attending Physician. 17:17 Beatriz Oliva RN is Primary Nurse. ch 17:29 No apparent distress. Resting quietly. 17:29 Patient has correct armband on for positive identification. Placed in gown. Bed in low ch position. Call light in reach. Side rails up X 1. personnel specialist on. Pulse ox on. NIBP on. Warm blanket given. 17:29 No provider procedures requiring assistance completed. Patient did not have IV access ch during this emergency room visit. Administered Medications: No medications were administered Outcome: 17:35 Discharge ordered by . gs 17:53 Patient left the ED. ls4 Signatures: Beatriz Oliva RN RN Britney Esqueda Patricia, RN RN Tyrell Leung MD MD Mushtaq, Leydi, RN RN ls4
--- NOTE | 2018-07-17 17:35 | EDPHYS ---
Physician Documentation [facility] Name: Juan C Monge Age: 57 yrs Sex: Male : 1960 Arrival Date: 07/17/2018 Time: 15:53 Bed 17 Private MD: Luís Ramirez H ED Physician Tyrell Leung HPI: 07/17 17:32 This 57 yrs old Male presents to ER via Ambulatory with complaints of High gs Blood Pressure. 17:32 The patient has elevated blood pressure and discovered this at home. Onset: The gs symptoms/episode began/occurred suddenly, just prior to arrival. Modifying factors: The symptoms are alleviated by prescription meds. Associated signs and symptoms: Pertinent positives: lightheadedness. Severity of symptoms: At its worst the blood pressure was severe, in the emergency department the blood pressure is improved, moderately. The patient has experienced similar episodes in the past, a few times. The patient has not recently seen a physician. Historical: - Allergies: 16:02 No Known Allergies; ph - PMHx: 16:02 Atrial Fib; COPD; Myocardial infarction; skull fracture; CVA; Hypertension; ph - PSHx: 16:02 Appendectomy; ph - Immunization history:: Adult Immunizations up to date. - Social history:: Smoking status: Patient uses tobacco products, smokes two packs cigarettes per day. ROS: 17:32 Cardiovascular: Negative for chest pain. gs 17:32 Neuro: Negative for 17:32 All other systems are negative. Exam: 17:32 Head/Face: Normocephalic, atraumatic. Eyes: Pupils equal round and reactive to light, gs extra-ocular motions intact. Lids and lashes normal. Conjunctiva and sclera are non-icteric and not injected. Cornea within normal limits. Periorbital areas with no swelling, redness, or edema. ENT: Nares patent. No nasal discharge, no septal abnormalities noted. Tympanic membranes are normal and external auditory canals are clear. Oropharynx with no redness, swelling, or masses, exudates, or evidence of obstruction, uvula midline. Mucous membranes moist. Neck: Trachea midline, no thyromegaly or masses palpated, and no cervical lymphadenopathy. Supple, full range of motion without nuchal rigidity, or vertebral point tenderness. No Meningismus. Chest/axilla: Normal chest wall appearance and motion. Nontender with no deformity. No lesions are appreciated. Cardiovascular: Regular rate and rhythm with a normal S1 and S2. No gallops, murmurs, or rubs. Normal PMI, no JVD. No pulse deficits. Respiratory: Lungs have equal breath sounds bilaterally, clear to auscultation and percussion. No rales, rhonchi or wheezes noted. No increased work of breathing, no retractions or nasal flaring. Abdomen/GI: Soft, non-tender, with normal bowel sounds. No distension or tympany. No guarding or rebound. No evidence of tenderness throughout. Back: No spinal tenderness. No costovertebral tenderness. Full range of motion. Skin: Warm, dry with normal turgor. Normal color with no rashes, no lesions, and no evidence of cellulitis. MS/ Extremity: Pulses equal, no cyanosis. Neurovascular intact. Full, normal range of motion. Neuro: Awake and alert, GCS 15, oriented to person, place, time, and situation. Cranial nerves II-XII grossly intact. Motor strength 5/5 in all extremities. Sensory grossly intact. Cerebellar exam normal. Normal gait. 17:32 Constitutional: The patient appears alert, awake. Vital Signs: 16:00 BP 117 / 72; Pulse 96; Resp 18; Temp 97.9; Pulse Ox 96% on R/A; Weight 72.57 kg; Height ph 5 ft. 10 in. (177.80 cm); Pain 1/10; 17:19 BP 134 / 84; Pulse 71; Resp 16; Temp 98.5; Pulse Ox 99% on R/A; Pain 0/10; ch 16:00 Body Mass Index 22.96 (72.57 kg, 177.80 cm) ph MDM: 17:26 Patient medically screened. gs 17:32 Data reviewed: vital signs, nurses notes. Response to treatment: the patient's symptoms gs have markedly improved after treatment, and as a result, I will discharge patient. Administered Medications: No medications were administered Disposition: 07/17/18 17:35 Discharged to Home. Impression: Essential (primary) hypertension. - Condition is Stable. - Discharge Instructions: Hypertension. - Medication Reconciliation Form, Thank You Letter, Antibiotic Education, Prescription Opioid Use form. - Follow up: Private Physician; When: 2 - 3 days; Reason: Re-evaluation by your physician. Signatures: Beatriz Oliva, RN RN Olga Ramirez RN RN Tyrell Leung MD MD Leydi Landin RN RN ls4 Corrections: (The following items were deleted from the chart) 17:53 17:35 07/17/2018 17:35 Discharged to Home. Impression: Essential (primary) ls4 hypertension. Condition is Stable. Forms are Medication Reconciliation Form, Thank You Letter, Antibiotic Education, Prescription Opioid Use. Follow up: Private Physician; When: 2 - 3 days; Reason: Re-evaluation by your physician. gs
[2018-07-17 19:16] VITALS: BP 134/84; TEMP 98.5; O2SAT 99
--- NOTE | 2018-07-18 07:01 | EKG ---
Test Date: 2018-07-17 Test Time: 16:06:42 Ent Nurse: ALYSON MEASUREMENT RESULTS: Intervals: Rate: 87 WY: 142 QRSD: 90 QT: 362 QTc: 435 [place]: P: 79 WY: 142 QRS: 75 T: 82 INTERPRETIVE STATEMENTS: Normal sinus rhythm Normal ECG Compared to ECG 03/13/2018 21:19:32 Sinus arrhythmia no longer present Electronically Signed On 07-18-18 07:01:03 CDT by Saleem Bailey
== END 2018-07-17 17:53 | disposition home or self-care (01) ==
LOC: ER 15:52
DX: I10 Essential (primary) hypertension (principal); I48.91 Unspecified atrial fibrillation; I25.2 Old myocardial infarction; F17.210 Nicotine dependence, cigarettes, uncomplicated
CPT/HCPCS: 93005; 99284

== ENCOUNTER 2018-08-04 15:10 | Emergency (ER) | payer OTHER ==
[2018-08-04] MEDS ORDERED: NICOTINE 21 MG/PAT TD ONE (16:30)
[2018-08-04 16:37] LABS: Absolute Lymphocytes (CBC) 1.4 K/uL (0.7-4.9); Absolute Monocytes 0.8 K/uL (0.1-1.3); Absolute Neutrophil 4.2 K/uL (1.8-8.0); Basophils % 1.1 % (0-1.3); Eosinophils % 2.7 % (0-4.4); Lymphocytes % 21.2 % (15.3-44.8); MCH 34.8 pg (27.0-35.0); MCV 99.6 fL (80-100); MPV 9.3 fL (7.6-11.3); Monocytes % 11.5 % (3.3-12.3); RBC Red Blood Cell Count 4.22 M/uL (4.33-5.43)
[2018-08-04 17:16] LABS: Protime INR 1.07
[2018-08-04] MEDS ORDERED: NA CHLORIDE 0.9% 500 ML ONE (17:16)
[2018-08-04 17:19] LABS: Albumin 3.4 g/dL (3.4-5.0); Bilirubin Direct 0.2 mg/dL (0-0.2); Bilirubin Total 0.4 mg/dL (0.2-1.0); Potassium 3.8 mmol/L (3.5-5.1); Protein, Total 6.4 g/dL (6.4-8.2)
[2018-08-04 17:33] LABS: Urine Blood NEGATIVE (NEG); Urine Glucose NEGATIVE (NEG); Urine Protein NEGATIVE (NEG); Urine Specific Gravity 1.015 (1.005-1.030); Urine pH 7.5 (5.0-7.0)
--- NOTE | 2018-08-04 18:07 | EKG ---
Test Date: 2018-08-04 Test Time: 16:46:25 Systems Admin: SONYA MEASUREMENT RESULTS: Intervals: Rate: 70 MD: 160 QRSD: 102 QT: 398 QTc: 429 [place]: P: 77 MD: 160 QRS: 77 T: 79 INTERPRETIVE STATEMENTS: Normal sinus rhythm Normal ECG Compared to ECG 07/17/2018 16:06:42 No significant changes Electronically Signed On 08-04-18 18:06:14 MECHANICAL ENGINEERING TECHNICIAN by Saleem Bailey
--- NOTE | 2018-08-04 18:59 | RAD REPORT ---
EXAM DESCRIPTION: CT - Abdomen Pelvis W Contrast - 08/04/2018 6:34 pm CLINICAL HISTORY: Abdominal pain. Right lower quadrant pain with vomiting COMPARISON: None. TECHNIQUE: Computed axial tomography of the abdomen and pelvis was obtained. 100 cc Isovue-300 is ad ministered intravenously. Oral contrast was given. All CT scans are performed using dose optimization technique as appropriate and may include automated exposure control or mA/KV adjustment according to patient size. FINDINGS: The liver, spleen, pancreas, adrenals and kidneys appear unremarkable. The wall of a loop of jejunum is thickened. There is no evidence of diverticulitis IMPRESSION: Thickening of the wall of a loop of jejunum may indicate an enteritis
--- NOTE | 2018-08-04 19:31 | ER ---
Nurse's Notes [facility] Name: Juan C Monge Age: 58 yrs Sex: Male : 1960 Arrival Date: 08/04/2018 Time: 15:16 Bed 30 Private MD: Luís Ramirez H Diagnosis: Unspecified abdominal pain Presentation: 08/04 15:18 Presenting complaint: Patient states: He has been having RLQ abdominal pain, vomiting, aj1 and dark stools for the past month. He saw his doctor today and they tested his stool, they called and told him that he had blood in his stool and to come to the emergency room. Transition of care: patient was not received from another setting of care. Onset of symptoms was June 2018. Risk Assessment: Do you want to hurt yourself or someone else? Patient reports no desire to harm self or others. Initial Sepsis Screen: Does the patient meet any 2 criteria? HR > 90 bpm. No. Patient's initial sepsis screen is negative. Does the patient have a suspected source of infection? Yes: Acute abdominal pain. Care prior to arrival: None. 15:18 Method Of Arrival: Ambulatory aj1 15:18 Acuity: JESSI 3 aj1 Triage Assessment: 15:24 General: Appears in no apparent distress. uncomfortable, Behavior is calm, cooperative, aj1 appropriate for age. Pain: Complains of pain in right lower quadrant Pain currently is 3 out of 10 on a pain scale. Neuro: Level of Consciousness is awake, alert, obeys commands. Cardiovascular: Patient's skin is warm and dry. Respiratory: Airway is patent Respiratory effort is even, unlabored, Respiratory pattern is regular, symmetrical. GI: Reports bloody stool. Historical: - Allergies: 15:24 No Known Allergies; aj1 - Home Meds: 15:24 aspirin 81 mg Oral chew 1 tab once daily [Active]; atorvastatin 40 mg oral tab 1 tab aj1 once daily [Active]; benazepril 10 mg oral tab 1 tab once daily [Active]; omeprazole 20 mg Oral cpDR 1 cap once daily [Active]; amoxicillin 500 mg Oral cap 1 cap every 12 hours [Active]; Levaquin 500 mg Oral tab 2 tab once daily [Active]; metronidazole 500 mg Oral tab 1 tab every 6 hours [Active]; - PMHx: 15:24 Atrial Fib; COPD; CVA; Hypertension; Myocardial infarction; skull fracture; aj1 Hyperlipidemia; - PSHx: 15:24 Appendectomy; aj1 - Immunization history:: Flu vaccine is not up to date. - Social history:: Smoking status: Patient uses tobacco products, smokes two packs cigarettes per day. - Ebola Screening: : Patient denies travel to an Ebola-affected area in the 21 days before illness onset. Screenin:30 Abuse screen: Denies threats or abuse. Denies injuries from another. Nutritional kr2 screening: No deficits noted. Tuberculosis screening: No symptoms or risk factors identified. Fall Risk None identified. Assessment: 15:30 General: Appears in no apparent distress. comfortable, well groomed, well developed, kr2 well nourished, Behavior is calm, cooperative, appropriate for age. Pain: Complains of pain in right lower quadrant Pain currently is 5 out of 10 on a pain scale. Quality of pain is described as sharp, tender, Is continuous, Alleviated by nothing. Aggravated by increased activity. Neuro: Level of Consciousness is awake, alert, obeys commands, Oriented to person, place, time, situation. Cardiovascular: Capillary refill < 3 seconds in bilateral fingers Patient's skin is warm and dry. Respiratory: Airway is patent Respiratory effort is even, unlabored, Respiratory pattern is regular, symmetrical. GI: Abdomen is flat, non-distended, Bowel sounds present X 4 quads. Abd is soft X 4 quads Abdomen is tender to palpation in right lower quadrant Reports Dark stool and his doctor said he had blood in his stool. EENT: Oral mucosa is moist. Derm: Skin is intact, with poor turgor Skin is pink, warm \T\ dry. Musculoskeletal: Circulation, motion, and sensation intact. 16:30 Reassessment: Patient appears in no apparent distress at this time. Patient and/or kr2 family updated on plan of care and expected duration. Pain level reassessed. Patient is alert, oriented x 3, equal unlabored respirations, skin warm/dry/pink. 17:00 Reassessment: Patient completed oral contrast, CT notified. kr2 17:22 Reassessment: Patient appears in no apparent distress at this time. Patient and/or kr2 family updated on plan of care and expected duration. Pain level reassessed. Patient is alert, oriented x 3, equal unlabored respirations, skin warm/dry/pink. 18:39 Reassessment: Patient appears in no apparent distress at this time. Patient and/or kr2 family updated on plan of care and expected duration. Pain level reassessed. Patient is alert, oriented x 3, equal unlabored respirations, skin warm/dry/pink. 19:48 Reassessment: Patient appears in no apparent distress at this time. Patient and/or kr2 family updated on plan of care and expected duration. Pain level reassessed. Patient is alert, oriented x 3, equal unlabored respirations, skin warm/dry/pink. Patient tolerated PO challenge without any problems Patient states feeling better. Vital Signs: 15:24 BP 142 / 86; Pulse 98; Resp 20; Temp 97.9(O); Pulse Ox 94% on R/A; Weight 72.57 kg (R); aj1 Height 5 ft. 10 in. (177.80 cm); Pain 3/10; 17:22 BP 128 / 80; Pulse 76; Resp 20; Pulse Ox 94% on R/A; kr2 18:39 BP 151 / 81; Pulse 86; Resp 19; Pulse Ox 20% on R/A; kr2 19:50 BP 139 / 83; Pulse 84; Resp 18; Pulse Ox 98% on R/A; kr2 15:24 Body Mass Index 22.96 (72.57 kg, 177.80 cm) aj1 ED Course: 15:16 Patient arrived in ED. sb2 15:16 Luís Ramirez DO is Private Physician. sb2 15:21 Triage completed. aj1 15:24 Arm band placed on Patient placed in an exam room. aj1 15:28 Sam Plasencia PA is PHCP. cp 15:28 Dedrick Del Rio MD is Attending Physician. cp 15:30 Patient has correct armband on for positive identification. Bed in low position. Call kr2 light in reach. Side rails up X 1. Adult w/ patient. board writer on. Pulse ox on. NIBP on. Door closed. Warm blanket given. Head of bed elevated. 16:30 Initial lab(s) drawn, by ED staff, sent to lab. kr2 16:42 Lab(s) recollected, by me, held in ED. Inserted saline lock: 20 gauge in right forearm, sg using aseptic technique. Blood collected. 16:50 EKG done, by breeder hen service technician. reviewed by Sam ANNE. sm3 17:13 Ariadna Mcknight, RN is Primary Nurse. kr2 18:35 CT Abd/Pelvis - W/Contrast: give oral contrast In Process Unspecified. EDMS 19:30 Gustavo Triplett MD is Referral Physician. cp 19:49 No provider procedures requiring assistance completed. IV discontinued, intact, kr2 bleeding controlled, No redness/swelling at site. Pressure dressing applied. Administered Medications: 16:24 Drug: Nicotine 21 mg/24 hr 1 patches Route: Transdermal; Site: anterior chest wall; kr2 19:52 Follow up: Response: No adverse reaction kr2 17:14 Drug: NS 0.9% 500 ml Route: IV; Rate: bolus; Site: right forearm; kr2 19:30 Follow up: Response: No adverse reaction; IV Status: Completed infusion kr2 Outcome: 19:31 Discharge ordered by MD. cp 19:49 Discharged to home ambulatory, with family. kr2 19:49 Condition: good 19:49 Discharge instructions given to patient, family, Instructed on discharge instructions, follow up and referral plans. medication usage, Demonstrated understanding of instructions, follow-up care, medications, Prescriptions given X 2. 19:52 Patient left the ED. kr2 Signatures: Dispatcher [employer] EDME Misti Joiner RN RN aj1 Luis Mahoney RN RN sg Page, Corey, PA PA cp Ariadna Mcknight, RN RN kr2 Kiah Santoro 2 Esperanza Freeman sm3 Corrections: (The following items were deleted from the chart) 17:15 17:14 NS 0.9% 500 ml IV at bolus in right wrist kr2 kr2
--- NOTE | 2018-08-04 19:32 | EDPHYS ---
Physician Documentation [facility] Name: Juan C Monge Age: 58 yrs Sex: Male : 1960 Arrival Date: 08/04/2018 Time: 15:16 Bed 30 Private MD: Luís Ramirez H ED Physician Dedrick Del Rio HPI: 08/04 16:19 This 58 yrs old Male presents to ER via Ambulatory with complaints of Bloody cp Stools. 16:19 The patient presents with abdominal pain that is diffuse. Onset: The symptoms/episode cp began/occurred 3 week(s) ago. The symptoms do not radiate. Associated signs and symptoms: Pertinent positives: blood in stools, diarrhea, nausea, black and tarry stools, Pertinent negatives: chest pain, constipation, fever, shortness of breath, vomiting. The symptoms are described as bloating. Severity of pain: in the emergency department the pain is unchanged despite home interventions. The patient has been recently seen by a physician: with similar presenting complaints, and was sent to the [facility] Emergency Department for further evaluation. Historical: - Allergies: 15:24 No Known Allergies; aj1 - Home Meds: 15:24 aspirin 81 mg Oral chew 1 tab once daily [Active]; atorvastatin 40 mg oral tab 1 tab aj1 once daily [Active]; benazepril 10 mg oral tab 1 tab once daily [Active]; omeprazole 20 mg Oral cpDR 1 cap once daily [Active]; amoxicillin 500 mg Oral cap 1 cap every 12 hours [Active]; Levaquin 500 mg Oral tab 2 tab once daily [Active]; metronidazole 500 mg Oral tab 1 tab every 6 hours [Active]; - PMHx: 15:24 Atrial Fib; COPD; CVA; Hypertension; Myocardial infarction; skull fracture; aj1 Hyperlipidemia; - PSHx: 15:24 Appendectomy; aj1 - Immunization history:: Flu vaccine is not up to date. - Social history:: Smoking status: Patient uses tobacco products, smokes two packs cigarettes per day. - Ebola Screening: : Patient denies travel to an Ebola-affected area in the 21 days before illness onset. ROS: 16:22 Eyes: Negative for injury, pain, redness, and discharge. cp 16:22 Constitutional: Negative for body aches, chills, fever, poor PO intake. 16:22 ENT: Negative for drainage from ear(s), ear pain, sore throat, difficulty swallowing, difficulty handling secretions. 16:22 Cardiovascular: Negative for chest pain, edema, palpitations. 16:22 Respiratory: Negative for cough, shortness of breath, wheezing. 16:22 Abdomen/GI: Positive for abdominal pain, nausea, diarrhea, abdominal distension, black/tarry stool, rectal bleeding, Negative for constipation, active vomiting. 16:22 Skin: Negative for cellulitis, rash. 16:22 Neuro: Negative for altered mental status, headache, syncope, near syncope, weakness. 16:22 All other systems are negative. Exam: 16:23 Head/Face: Normocephalic, atraumatic. cp 16:23 Eyes: Pupils equal round and reactive to light, extra-ocular motions intact. Lids and lashes normal. Conjunctiva and sclera are non-icteric and not injected. Cornea within normal limits. Periorbital areas with no swelling, redness, or edema. ENT: Nares patent. No nasal discharge, no septal abnormalities noted. Tympanic membranes are normal and external auditory canals are clear. Oropharynx with no redness, swelling, or masses, exudates, or evidence of obstruction, uvula midline. Mucous membranes moist. Chest/axilla: Normal chest wall appearance and motion. Nontender with no deformity. No lesions are appreciated. 16:23 Constitutional: The patient appears in no acute distress, alert, awake, non-diaphoretic, non-toxic, well developed, well nourished. 16:23 Cardiovascular: Rate: normal, Rhythm: regular, Heart sounds: murmur, not appreciated, Edema: is not appreciated, JVD: is not appreciated. 16:23 Respiratory: the patient does not display signs of respiratory distress, Respirations: normal, no use of accessory muscles, no retractions, no splinting, no tachypnea, labored breathing, is not present, Breath sounds: are clear throughout, no decreased breath sounds, no stridor, no wheezing. 16:23 Abdomen/GI: Inspection: abdomen appears normal, Bowel sounds: active, all quadrants, Palpation: soft, in all quadrants, mild abdominal tenderness, in the right lower quadrant and left lower quadrant, rebound tenderness, is not appreciated, voluntary guarding, is not appreciated, involuntary guarding, is not appreciated, Rectal exam: Stool: brown, guaiac negative, hemorrhoid(s), external, with inflammation, without bleeding. 16:23 Back: pain, is absent, ROM is normal. 16:23 Skin: cellulitis, is not appreciated, no rash present. 16:23 Neuro: Orientation: to person, place \T\ time. Mentation: lucid, able to follow commands, Cerebellar function: is grossly normal, Motor: moves all fours, strength is normal, Sensation: is normal, Gait: is steady. 16:50 ECG was reviewed by the Attending Physician. cp Vital Signs: 15:24 BP 142 / 86; Pulse 98; Resp 20; Temp 97.9(O); Pulse Ox 94% on R/A; Weight 72.57 kg (R); aj1 Height 5 ft. 10 in. (177.80 cm); Pain 3/10; 17:22 BP 128 / 80; Pulse 76; Resp 20; Pulse Ox 94% on R/A; kr2 18:39 BP 151 / 81; Pulse 86; Resp 19; Pulse Ox 20% on R/A; kr2 19:50 BP 139 / 83; Pulse 84; Resp 18; Pulse Ox 98% on R/A; kr2 15:24 Body Mass Index 22.96 (72.57 kg, 177.80 cm) aj1 MDM: 15:29 Patient medically screened. cp 16:30 Differential diagnosis: diverticulitis, gastritis, pancreatitis, Peptic Ulcer Disease, cp Perf. Duodenal Ulcer, Perf. Gastric Ulcer. 19:30 Data reviewed: vital signs, nurses notes, lab test result(s), EKG, radiologic studies, cp CT scan, and as a result, I will discharge patient. 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 19:30 Response to treatment: the patient's symptoms have markedly improved after treatment, cp and as a result, I will discharge patient. ED course: VSS. Pain improved with meds. Patient instructed to continue currents meds and will discharge to home for continued monitoring. 08/04 16:04 Order name: Basic Metabolic Panel; Complete Time: 17:43 08/04 17:44 Interpretation: Normal except: GLUC 119; BUN 6; GFR 86; CA 8.3. 08/04 16:04 Order name: CBC with Diff; Complete Time: 17:43 08/04 17:44 Interpretation: Normal except: RBC 4.22; MCV 99.6; MCH 34.8. 08/04 16:04 Order name: Creatinine for Radiology; Complete Time: 17:43 08/04 16:04 Order name: Hepatic Function; Complete Time: 17:43 08/04 17:44 Interpretation: Normal except: AST 9. 08/04 16:04 Order name: Lipase; Complete Time: 17:43 08/04 16:04 Order name: PT-INR; Complete Time: 17:43 08/04 19:23 Interpretation: Normal except: PT 12.6. 08/04 16:04 Order name: IV Saline Lock; Complete Time: 17:14 08/04 16:04 Order name: Ptt, Activated; Complete Time: 17:43 08/04 16:04 Order name: CT Abd/Pelvis - W/Contrast: give oral contrast; Complete Time: 19:01 08/04 19:01 Interpretation: Report reviewed. 08/04 16:04 Order name: Magnesium; Complete Time: 17:43 08/04 16:13 Order name: EKG; Complete Time: 16:13 08/04 17:27 Order name: Urine Dipstick--Ancillary (enter results); Complete Time: 17:43 08/04 17:44 Interpretation: Normal except: UPH 7.5. 08/04 16:04 Order name: Labs collected and sent; Complete Time: 16:25 08/04 16:04 Order name: Urine Dipstick-Ancillary (obtain specimen); Complete Time: 17:14 08/04 16:13 Order name: EKG - Nurse/Tech; Complete Time: 16:20 08/04 16:47 Order name: Labs - recollect needed; Complete Time: 17:14 08/04 19:01 Order name: PO challenge; Complete Time: 19:02 EC:50 Rate is 70 beats/min. Rhythm is regular. [place] interval is normal. QRS interval is cp prolonged at 102 msec. QT interval is normal. T waves are Inverted in lead aVL. Interpreted by me. Reviewed by me. Administered Medications: 16:24 Drug: Nicotine 21 mg/24 hr 1 patches Route: Transdermal; Site: anterior chest wall; kr2 19:52 Follow up: Response: No adverse reaction kr2 17:14 Drug: NS 0.9% 500 ml Route: IV; Rate: bolus; Site: right forearm; kr2 19:30 Follow up: Response: No adverse reaction; IV Status: Completed infusion kr2 Disposition: 08/04/18 19:31 Discharged to Home. Impression: Unspecified abdominal pain. - Condition is Stable. - Discharge Instructions: Abdominal Pain, Adult, Gastritis, Adult, Upper Endoscopy. - Prescriptions for Bentyl 20 mg Oral Tablet - take 2 tablet by ORAL route every 6 hours As needed; 40 tablet. Zofran 4 mg Oral Tablet - take 1 tablet by ORAL route every 12 hours As needed; 20 tablet. - Medication Reconciliation Form, Thank You Letter, Antibiotic Education, Prescription Opioid Use form. - Follow up: Gustavo Triplett MD; When: 2 - 3 days; Reason: Recheck today's complaints. - Problem is new. - Symptoms have improved. Addendum: 08/08/2018 17:28 Co-signature as Attending Physician, Dedrick Del Rio MD. m a2 Signatures: Dispatcher [employer] EDMisti Melvin RN RN aj1 Sam Plasencia PA PA cp Reaves, Karey, RN RN kr2 Dedrick Del Rio MD MD ct2 Krissy Jenkins Corrections: (The following items were deleted from the chart) 08/04 17:44 17:44 Normal except: GLUC 119; BUN 6; GFR 86. cp cp 19:52 19:31 08/04/2018 19:31 Discharged to Home. Impression: Unspecified abdominal pain. kr2 Condition is Stable. Forms are Medication Reconciliation Form, Thank You Letter, Antibiotic Education, Prescription Opioid Use. Follow up: Gustavo Triplett; When: 2 - 3 days; Reason: Recheck today's complaints. Problem is new. Symptoms have improved. cp
[2018-08-04 20:22] VITALS: TEMP 97.9
[2018-08-04 20:25] VITALS: BP 139/83; O2SAT 98
== END 2018-08-04 19:52 | disposition home or self-care (01) ==
LOC: ER 15:10
DX: R10.9 Unspecified abdominal pain (principal); F17.210 Nicotine dependence, cigarettes, uncomplicated; I10 Essential (primary) hypertension; I48.91 Unspecified atrial fibrillation; I25.2 Old myocardial infarction; J44.9 Chronic obstructive pulmonary disease, unspecified; E78.5 Hyperlipidemia, unspecified; Z79.82 Long term (current) use of aspirin
CPT/HCPCS: 36415; 74177; 80048; 80076; 81003; 83690; 83735; 85025; 85610; 85730; 93005; 96360; 96361; 99285; Q9967

== ENCOUNTER 2019-04-06 11:26 | Emergency (ER) | payer OTHER ==
--- OUTSIDE RECORDS SUMMARY | 2019-04-06 11:29 | XMS REPORT ---
:1960 [facility] Organization [facility] Address [address] [place] [address] [place] [id number] Care Team Providers Name Role Phone Unavailable Unavailable Unavailable Problems This patient has no known problems. Allergies, Adverse Reactions, Alerts This patient has no known allergies or adverse reactions. Medications This patient has no known medications.
[2019-04-06 11:57] LABS: Absolute Lymphocytes (CBC) 0.4 K/uL (0.7-4.9); Basophils % 0.2 % (0-1.3); Hematocrit 40.9 % (39.6-49.0); Lymphocytes % 2.1 % (15.3-44.8); MPV 7.4 fL (7.6-11.3); Monocytes % 5.4 % (3.3-12.3); RBC Red Blood Cell Count 4.05 M/uL (4.33-5.43)
[2019-04-06] MEDS ORDERED: NA CHLORIDE 0.9% 1,000 ML ONE (12:02)
[2019-04-06 12:16] LABS: BUN Blood Urea Nitrogen 13 mg/dL (7-18); Bicarbonate 29 mmol/L (21-32); CKMB Creatine Kinase MB 1.4 ng/mL (0.3-3.6); Creatine Phosphokinase 107 U/L (39-308); Glucose Level 124 mg/dL (74-106); Magnesium 1.7 mg/dL (1.8-2.4); NT PRO-BNP 575 pg/mL (<125); Potassium 4.3 mmol/L (3.5-5.1); Sodium Level 132 mmol/L (136-145); Troponin (Emerg Dept Use Only) < 0.02 ng/mL (0.0-0.045)
[2019-04-06 12:32] LABS: Urine Blood TRACE (NEG); Urine Glucose NEGATIVE (NEG); Urine Protein 1+ (NEG); Urine Specific Gravity 1.015 (1.005-1.030); Urine pH 6.5 (5.0-7.0)
[2019-04-06] MEDS ORDERED: MAGNESIUM SULFATE 1 gm IVPB 1 GM/100 ML BAG IV ONE (13:05)
[2019-04-06 13:17] LABS: Blood Morphology Comment NOT SEEN (NOT SEEN); Platelet Estimate ADEQ; Urine White Blood Cell Casts OK
--- NOTE | 2019-04-06 13:45 | EDPHYS ---
Physician Documentation [facility] Name: Juan C Monge Age: 58 yrs Sex: Male : 1960 Arrival Date: 04/06/2019 Time: 11:27 Bed 18 Private MD: ED Physician Tyrell Leung HPI: 04/06 11:40 This 58 yrs old Male presents to ER via EMS with complaints of Heat Exposure, kb Weakness. 11:40 The patient presents with generalized weakness, lightheadedness. Onset: The kb symptoms/episode began/occurred today. Context: occurred at home, occurred while the patient was walking, just prior to the episode the patient experienced no apparent symptoms. Modifying factors: The symptoms are alleviated by nothing, the symptoms are aggravated by nothing. Associated signs and symptoms: Pertinent positives: headache. Severity of symptoms: At their worst the symptoms were mild moderate in the emergency department the symptoms are unchanged. Patient's baseline: Neuro: alert and fully oriented, Motor: no deficits, Ambulation: walks without assistance, Speech: normal, The patient has a previous history of CVA. The patient has experienced similar episodes in the past. The patient has not recently seen a physician. Pt states he was evicted from his home illegally so he walked to the [place] [employer] from [place] to file a police report. States he was told he had to go to the [place] [employer] to file so he started walking back. States he made it to the [employer] and felt weak, lightheaded, and dehydrated so he asked them to call an ambulance. States "I used to work in the heat everyday, but I can't handle it anymore." Reports he has been dehydrated in the past and knows that is the problem. . Historical: - Home Meds: 11:31 benazepril 10 mg Oral tab 1 tab once daily [Active]; omeprazole 20 mg Oral cpDR 1 cap tw2 once daily [Active]; - PMHx: 11:31 Atrial Fib; COPD; CVA; Hyperlipidemia; Hypertension; Myocardial infarction; skull tw2 fracture; - PSHx: 11:31 Appendectomy; tw2 - Immunization history:: Adult Immunizations. - Social history:: Smoking status: Patient uses tobacco products, smokes one pack cigarettes per day. - Ebola Screening: : Patient denies travel to an Ebola-affected area in the 21 days before illness onset. ROS: 11:39 Constitutional: Negative for fever, chills, and weight loss, ENT: Negative for injury, kb pain, and discharge, Neck: Negative for injury, pain, and swelling, Cardiovascular: Negative for chest pain, palpitations, and edema, Respiratory: Negative for shortness of breath, cough, wheezing, and pleuritic chest pain, Abdomen/GI: Negative for abdominal pain, nausea, vomiting, diarrhea, and constipation, Back: Negative for injury and pain, : Negative for injury, bleeding, discharge, and swelling, MS/Extremity: Negative for injury and deformity, Skin: Negative for injury, rash, and discoloration. 11:39 Neuro: Positive for headache, weakness, lightheadedness. Exam: 11:39 Constitutional: This is a well developed, well nourished patient who is awake, alert, kb and in no acute distress. Head/Face: Normocephalic, atraumatic. Eyes: Pupils equal round and reactive to light, extra-ocular motions intact. Lids and lashes normal. Conjunctiva and sclera are non-icteric and not injected. Cornea within normal limits. Periorbital areas with no swelling, redness, or edema. ENT: Nares patent. No nasal discharge, no septal abnormalities noted. Tympanic membranes are normal and external auditory canals are clear. Oropharynx with no redness, swelling, or masses, exudates, or evidence of obstruction, uvula midline. Mucous membranes moist. Neck: Trachea midline, no thyromegaly or masses palpated, and no cervical lymphadenopathy. Supple, full range of motion without nuchal rigidity, or vertebral point tenderness. No Meningismus. Chest/axilla: Normal chest wall appearance and motion. Nontender with no deformity. No lesions are appreciated. Cardiovascular: Regular rate and rhythm with a normal S1 and S2. No gallops, murmurs, or rubs. Normal PMI, no JVD. No pulse deficits. Respiratory: Lungs have equal breath sounds bilaterally, clear to auscultation and percussion. No rales, rhonchi or wheezes noted. No increased work of breathing, no retractions or nasal flaring. Abdomen/GI: Soft, non-tender, with normal bowel sounds. No distension or tympany. No guarding or rebound. No evidence of tenderness throughout. Skin: Warm, dry with normal turgor. Normal color with no rashes, no lesions, and no evidence of cellulitis. MS/ Extremity: Pulses equal, no cyanosis. Neurovascular intact. Full, normal range of motion. Neuro: Awake and alert, GCS 15, oriented to person, place, time, and situation. Cranial nerves II-XII grossly intact. Motor strength 5/5 in all extremities. Sensory grossly intact. Cerebellar exam normal. Normal gait. Vital Signs: 11:29 BP 148 / 112; Pulse 124; Resp 19; Temp 98.6(O); Pulse Ox 95% on R/A; Weight 54.43 kg tw2 (R); Height 6 ft. 0 in. (182.88 cm); Pain 0/10; 11:49 BP 150 / 86; Pulse 112; Resp 17; Pulse Ox 95% on R/A; tw2 12:55 BP 150 / 82; Pulse 99; Resp 17; Temp 97.9(TE); Pulse Ox 95% on R/A; Pain 0/10; tw2 14:09 BP 143 / 71; Pulse 96; Resp 17; Pulse Ox 99% on R/A; tw2 11:29 Body Mass Index 16.27 (54.43 kg, 182.88 cm) tw2 MDM: 11:29 Patient medically screened. kb 11:38 Data reviewed: vital signs, nurses notes. Data interpreted: Pulse oximetry: on room air kb is 95 %. Interpretation: normal. 13:41 Counseling: I had a detailed discussion with the patient and/or guardian regarding: the kb historical points, exam findings, and any diagnostic results supporting the discharge/admit diagnosis, lab results, the need for outpatient follow up, a family practitioner, to return to the emergency department if symptoms worsen or persist or if there are any questions or concerns that arise at home. ED course: Pt reports he feels so much better after fluids and eating. Pt is very appreciative of this care,. 04/06 11:37 Order name: Basic Metabolic Panel; Complete Time: 12:20 kb 04/06 11:37 Order name: CBC with Diff; Complete Time: 13:19 kb 04/06 11:37 Order name: Magnesium; Complete Time: 12:20 kb 04/06 11:37 Order name: NT PRO-BNP; Complete Time: 12:20 kb 04/06 11:37 Order name: Troponin (emerg Dept Use Only); Complete Time: 12:20 kb 04/06 11:37 Order name: Ckmb; Complete Time: 12:20 kb 04/06 11:37 Order name: EKG; Complete Time: 11:38 kb 04/06 11:37 Order name: Cardiac monitoring; Complete Time: 11:42 kb 04/06 11:37 Order name: CPK; Complete Time: 12:20 kb 04/06 11:56 Order name: Urine Dipstick--Ancillary (enter results); Complete Time: 12:34 ms 04/06 12:51 Order name: Diet Ada [address]; Complete Time: 12:52 tw2 04/06 13:18 Order name: CBC Smear Scan; Complete Time: 13:19 EDMS 04/06 11:37 Order name: EKG - Nurse/Tech; Complete Time: 11:42 kb 04/06 11:37 Order name: IV Saline Lock; Complete Time: 11:43 kb 04/06 11:37 Order name: Labs collected and sent; Complete Time: 11:43 kb 04/06 11:37 Order name: O2 Per Protocol; Complete Time: 11:43 kb 04/06 11:37 Order name: O2 Sat Monitoring; Complete Time: 11:43 kb 04/06 11:37 Order name: Urine Dipstick-Ancillary (obtain specimen); Complete Time: 11:52 kb Administered Medications: 11:49 Drug: NS 0.9% 1000 ml Route: IV; Rate: 1000 ml; Site: right antecubital; tw2 14:10 Follow up: Response: No adverse reaction; IV Status: Completed infusion; IV Intake: tw2 1000ml 12:52 Drug: Magnesium Sulfate 1 grams Route: IVPB; Infused Over: 1 hrs; Site: right tw2 antecubital; 14:09 Follow up: Response: No adverse reaction; IV Status: Completed infusion tw2 Disposition: 04/06/19 13:43 Discharged to Home. Impression: Weakness, Exposure to excessive natural heat. - Condition is Stable. - Discharge Instructions: Heat Exhaustion Information, Weakness, [id number]. - Medication Reconciliation Form, Thank You Letter, Antibiotic Education, Prescription Opioid Use form. - Follow up: Emergency Department; When: As needed; Reason: Worsening of condition. Follow up: Private Physician; When: 2 - 3 days; Reason: Recheck today's complaints, Continuance of care, Re-evaluation by your physician. Addendum: 04/07/2019 18:46 Co-signature as Attending Physician, Tyrell Leung MD. g s Signatures: Dispatcher [employer] EDND Fatmata Maharaj, GROVER CANCHOLA-Dina Rodrigez, RN RN tw2 Tyrell Leung MD MD Corrections: (The following items were deleted from the chart) 04/06 14:13 13:43 04/06/2019 13:43 Discharged to Home. Impression: Weakness; Exposure to excessive tw2 natural heat. Condition is Stable. Forms are Medication Reconciliation Form, Thank You Letter, Antibiotic Education, Prescription Opioid Use. Follow up: Emergency Department; When: As needed; Reason: Worsening of condition. Follow up: Private Physician; When: 2 - 3 days; Reason: Recheck today's complaints, Continuance of care, Re-evaluation by your physician. kb
--- NOTE | 2019-04-06 13:45 | ER ---
Nurse's Notes [facility] Name: Juan C Monge Age: 58 yrs Sex: Male : 1960 Arrival Date: 04/06/2019 Time: 11:27 Bed 18 Private MD: Diagnosis: Weakness;Exposure to excessive natural heat Presentation: 04/06 11:28 Presenting complaint: EMS states: pt is complaining of dehydration and generalized tw2 weakness, he says he was illegally evicted from his trailer and he was without ac and water he says, vs 135/84, 124HR, 95% ra. Transition of care: patient was not received from another setting of care. Onset of symptoms was April 06, 2019. Risk Assessment: Do you want to hurt yourself or someone else? Patient reports no desire to harm self or others. Initial Sepsis Screen: Does the patient meet any 2 criteria? HR > 90 bpm. Does the patient have a suspected source of infection? No. Patient's initial sepsis screen is negative. Care prior to arrival: None. 11:28 Method Of Arrival: EMS: [facility] tw2 11:28 Acuity: JESSI 3 tw2 Historical: - Home Meds: 11:31 benazepril 10 mg Oral tab 1 tab once daily [Active]; omeprazole 20 mg Oral cpDR 1 cap tw2 once daily [Active]; - PMHx: 11:31 Atrial Fib; COPD; CVA; Hyperlipidemia; Hypertension; Myocardial infarction; skull tw2 fracture; - PSHx: 11:31 Appendectomy; tw2 - Immunization history:: Adult Immunizations. - Social history:: Smoking status: Patient uses tobacco products, smokes one pack cigarettes per day. - Ebola Screening: : Patient denies travel to an Ebola-affected area in the 21 days before illness onset. Screenin:50 Abuse screen: Denies threats or abuse. Nutritional screening: No deficits noted. tw2 Tuberculosis screening: No symptoms or risk factors identified. Fall Risk None identified. Assessment: 11:30 General: Appears in no apparent distress. slender, Behavior is calm, cooperative, tw2 appropriate for age. Pain: Denies pain. Neuro: Level of Consciousness is awake, alert, obeys commands. Cardiovascular: Heart tones S1 S2 Patient's skin is warm and dry. Respiratory: Airway is patent Respiratory effort is even, unlabored, Respiratory pattern is regular, symmetrical, Breath sounds are clear bilaterally. GI: No signs and/or symptoms were reported involving the gastrointestinal system. Abdomen is flat, Bowel sounds present X 4 quads. : Reports dark urine. EENT: No signs and/or symptoms were reported regarding the EENT system. Derm: Skin is intact, is healthy with good turgor, Skin temperature is warm. Musculoskeletal: Range of motion:. 12:56 Reassessment: Patient appears in no apparent distress at this time. No changes from tw2 previously documented assessment. Patient and/or family updated on plan of care and expected duration. Pain level reassessed. Patient is alert, oriented x 3, equal unlabored respirations, skin warm/dry/pink. 14:09 Reassessment: Patient appears in no apparent distress at this time. No changes from tw2 previously documented assessment. Patient and/or family updated on plan of care and expected duration. Pain level reassessed. Patient is alert, oriented x 3, equal unlabored respirations, skin warm/dry/pink. Vital Signs: 11:29 BP 148 / 112; Pulse 124; Resp 19; Temp 98.6(O); Pulse Ox 95% on R/A; Weight 54.43 kg tw2 (R); Height 6 ft. 0 in. (182.88 cm); Pain 0/10; 11:49 BP 150 / 86; Pulse 112; Resp 17; Pulse Ox 95% on R/A; tw2 12:55 BP 150 / 82; Pulse 99; Resp 17; Temp 97.9(TE); Pulse Ox 95% on R/A; Pain 0/10; tw2 14:09 BP 143 / 71; Pulse 96; Resp 17; Pulse Ox 99% on R/A; tw2 11:29 Body Mass Index 16.27 (54.43 kg, 182.88 cm) tw2 ED Course: 11:27 Patient arrived in ED. tw2 11:27 Bed in low position. Call light in reach. child monitor on. Pulse ox on. NIBP on. tw2 Pillow given. 11:28 [facility]ata Maharaj [facility]C [facility] kb 11:28 Tyrell Leung MD is Attending Physician. kb 11:29 Triage completed. tw2 11:29 Arm band placed on. tw2 11:42 Dina Hernandez, RN is Primary Nurse. tw2 11:42 Initial lab(s) drawn, by mo, sent to lab. Urine collected: clean catch specimen, saige mh5 colored. Inserted saline lock: 20 gauge in right forearm, using aseptic technique. Blood collected. 11:52 CPK Sent. 5 11:52 Ckmb Sent. 5 11:52 Basic Metabolic Panel Sent. 5 11:52 EKG done, by obstetrics technician. reviewed by Tyrell Leung MD. at1 11:52 CBC with Diff Sent. 5 11:52 Magnesium Sent. 5 11:52 NT PRO-BNP Sent. 5 11:52 Troponin (emerg Dept Use Only) Sent. 5 13:45 Awaiting: completion of iv medication at this time, prior to discharge. tw2 14:11 No provider procedures requiring assistance completed. IV discontinued, intact, tw2 bleeding controlled, No redness/swelling at site. Pressure dressing applied. Administered Medications: 11:49 Drug: NS 0.9% 1000 ml Route: IV; Rate: 1000 ml; Site: right antecubital; tw2 14:10 Follow up: Response: No adverse reaction; IV Status: Completed infusion; IV Intake: tw2 1000ml 12:52 Drug: Magnesium Sulfate 1 grams Route: IVPB; Infused Over: 1 hrs; Site: right tw2 antecubital; 14:09 Follow up: Response: No adverse reaction; IV Status: Completed infusion tw2 Intake: 14:10 IV: 1000ml; Total: 1000ml. tw2 Outcome: 13:43 Discharge ordered by . jaqueline 14:12 Discharged to home ambulatory. tw2 14:12 Condition: stable 14:12 Discharge instructions given to patient, Instructed on discharge instructions, follow up and referral plans. Demonstrated understanding of instructions, follow-up care. 14:13 Patient left the ED. tw2 Signatures: Fatmata Maharaj, [employer] INTERNMimi KNOXP-Kimberli Morales, computer engineering professor EKG Tat1 Dina Hernandez, RN RN tw2 Miriam Esqueda 5
[2019-04-06 14:23] VITALS: TEMP 97.9
[2019-04-06 14:24] VITALS: BP 143/71; O2SAT 99
--- NOTE | 2019-04-06 15:36 | EKG ---
Test Date: 2019-04-06 Test Time: 11:42:20 Engagement Executive: REGI MEASUREMENT RESULTS: Intervals: Rate: 116 PA: 128 QRSD: 90 QT: 324 QTc: 450 Semmes: P: 76 PA: 128 QRS: 68 T: 83 INTERPRETIVE STATEMENTS: Sinus tachycardia Minimal voltage criteria for LVH, may be normal variant Borderline ECG Compared to ECG 08/04/2018 16:46:25 Left ventricular hypertrophy now present Sinus rhythm no longer present Electronically Signed On 04-06-19 15:35:14 CDT by Randy Bautista
== END 2019-04-06 14:13 | disposition home or self-care (01) ==
LOC: ER 11:26
DX: R53.1 Weakness (principal); X30.XXXA Exposure to excessive natural heat, initial encounter; Y93.01 Activity, walking, marching and hiking; Y92.89 Other specified places as the place of occurrence of the external cause; Z86.73 Personal history of transient ischemic attack (TIA), and cerebral infarction without residual deficits; I10 Essential (primary) hypertension; I48.91 Unspecified atrial fibrillation; J44.9 Chronic obstructive pulmonary disease, unspecified; F17.210 Nicotine dependence, cigarettes, uncomplicated
CPT/HCPCS: 96365; 96361; 93005; 85025; 80048; 36415; 83735; 82550; 81003; 84484; 82553; 83880; 99284; J3475; J7030

== ENCOUNTER 2021-12-20 06:39 | Emergency (ER) | payer OTHER ==
--- OUTSIDE RECORDS SUMMARY | 2021-12-20 06:44 | XMS REPORT | Continuity of Care Document ---
:1960 Author Organization [facility] t Address [address] [place] [address] Care Team Providers Name Role Phone TANG Primary Care Physician Unavailable Violeta [employer], A Attending Clinician Pob, Lab Main Attending Clinician Unavailable Jimy SAWYER Attending Clinician JIMY Attending Clinician Unavailable Doctor Unassigned, Name Attending Clinician Unavailable Rm, Surg Spec Procedure Attending Clinician Unavailable VIOLETA, A Attending Clinician Unavailable Trina Narayan DO Attending Clinician Chris ZAMORA, S Attending Clinician Unavailable Ramesh Mckeon Attending Clinician Unavailable JOEL Attending Clinician Unavailable Attending Clinician Unavailable Jeramy Brown Attending Clinician JOEL Admitting Clinician Unavailable MARILYN Admitting Clinician Unavailable Payers Payer Name Policy Type Policy Number Effective Date Expiration Date [facility] [id number] 2018 MEDICARE GOLD 00:00:00 Problems Condition Condition Condition Status Onset Resolution Last Treating Co mments Source Name Details Category Date Date Treatment Clinician Date PAF PAF Disease Active 2018-09 Univers (paroxysma (paroxysma 2-08 it y of l atrial l atrial 00:00: [place] fibrillati fibrillati 00 Me dical on) on) Branch NSVT NSVT Disease Active 2018-09 Univers (nonsustai (nonsustai 2-08 it y of charlette charlette 00:00: [place] ventricula ventricula 00 Me dical r r Branch tachycardi tachycardi a) a) Acute on Acute on Disease Active 2018-09 Unive rs chronic chronic 2-08 ity of combined combined 00:00: [place] systolic systolic 00 Medica l and and Branch 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 Nonrheumat Nonrheumat Disease Active 2018-09 U nivers ic mitral ic mitral 2-08 ity of valve valve 00:00: [place] stenosis stenosis 00 Medica l Branch COPD COPD Disease Active 2018-09 Univers exacerbati exacerbati 2-08 it y of on on 00:00: [place] 00 Medical Branch Cigarette Cigarette Disease Active 2018-09 Uni vers smoker smoker 2-08 ity of 00:00: [place] 00 Medical Branch Troponin I Troponin I Disease Active 2018-09 U nivers above above 2-08 [place] Hyponatrem Hyponatrem Disease Active 2018-09 U nivers ia ia 2-08 ity of 00:00: [place] 00 Medical Branch Hypoxia Hypoxia Disease Active 2018-09 Univers 2-07 ity of 00:00: [place] 00 Medical Branch Acute Acute Disease Active 2018-09 Univers respirator respirator 2-07 it y of y distress [place] Left heart Left heart Disease Active 2013-09 U nivers failure failure 2-23 ity of 00:00: [place] 00 Medical Branch Closed Closed Disease Active 2013-09 Overview: Univer s fracture fracture 2-13 Formattin ity of of zygoma of zygoma 00:00: g of this [place] 00 note Medical might be Branch different from the original. Chronic Fracture - not acute Fall Fall Disease Active 2013-09 Univers 2-12 ity of 00:00: [place] 00 Medical Branch Atrial Atrial Disease Active 2013-09 Univers fibrillati fibrillati 2-09 it y of on on 00:00: [place] 00 Medical Branch VT VT Disease Active 2013-09 Univers (ventricul (ventricul 2-09 it y of ar ar 00:00: [place] tachycardi tachycardi 00 Me dical a) a) Branch Allergies, Adverse Reactions, Alerts Allergy Allergy Status Severity Reaction(s) Onset Inactive Treating Comm ents Source Name Type Date Date Clinician No Known DA Active U 2019-09 [facility] [place] 00:[facility]: [address] No Known DA Active U 2019-09 [facility] 0- [facility] 00:00: [address] NO KNOWN Drug Active Univers ALLERGIE Class ity of S [facility] Social History Social Habit Start Date Stop Date Quantity Comments Source History SDUT University o f Alcohol Std Drinks [facility] Branch History [facility] University o f Alcohol Binge [facility] Exposure to Not sure [place] of SARS-CoV-2 (event) [facility] Cigarettes smoked 2020-12-29 2020-12-29 Univers ity of current (pack per 00:00:00 00:00:00 [facility]) - Reported [place] Tobacco use and 2020-12-29 2020-12-29 Former user Universi ty of exposure 00:00:00 00:00:00 [facility] Alcohol intake 2020-12-29 2020-12-29 Current drinker Unive rsity of 00:00:00 00:00:[address] [facility] (finding) Branch History SDOH 2019-08-26 2019-08-26 5 University o f Alcohol Frequency 00:00:00 00:00:00 [facility] Alcohol Comment 2014-08-27 2014-08-27 8 drinks per day Uni versity of 00:00:00 00:00:00 [facility] Sex Ass[birth year] At [birth year] Universit y of 00:00:00 00:00:00 [facility] Smoking Status Start Date Stop Date Source Current every day smoker 2020-12-29 00:00:00 Uni versity of [facility] Medications Ordered Filled Start Stop Current Ordering Indication Dosage Frequency Signature Comments Components Source Medication Medication Date Date Medication? Clinician (SIG) Name Name cephALEXin Yes [id number] 500mg Take 1 Univers (KEFLEX) 9-03 capsule by ity o f 500 mg 00:00: mouth 4 [place] capsule 00 (four) Medical times [place] daily. cephALEXin Yes [id number] 500mg Take 1 Univers (KEFLEX) 9-03 capsule by ity o f 500 mg 00:00: mouth 4 [place] capsule 00 (four) Medical times [place] daily. cefTRIAXone 2020- No 1000mg 1,000 mg, Univers (ROCEPHIN) 12-12- IV ity of 1,000 mg in 19:00: 18:23 Piggyback, [place] NaCl 0.9% 00 :00 ONCE, 1 Medical (NS) 50 mL dose, Fri Bran ch MINI-BAG 12/12/20 at 1400, 50 mL
Reas on for Anti-Infec tive: Empiric Therapy for Suspected Infection< br>Empiric Therapy Site: Urine
D uration of therapy: 72 hours carvediloL 2021-0 Yes 25mg Take 25 mg U nivers 25 mg 3-26 by mouth 2 ity of tablet 18:38: (two) [place] [address] times Medical daily with Branch meals. busPIRone 1-0 Yes 30mg Take 30 mg Un igor 30 mg 3-26 by mouth 2 ity of tablet 18:38: (two) [place] [address] times Medical daily. [place] benazepriL 2020-0 Yes 10mg Take 10 mg U nivers 10 mg 3-26 by mouth ity of tablet 18:38: daily. [address] hydroCHLORO 1-0 Yes 25mg Take 25 mg Univers thiazide 25 3-26 by mouth ity of mg tablet 18:38: daily. [address] carvediloL 1-0 Yes 25mg Take 25 mg U nivers 25 mg 3-26 by mouth 2 ity of tablet 18:38: (two) [place] [address] times Medical daily with Branch meals. busPIRone 1-0 Yes 30mg Take 30 mg Un igor 30 mg 3-26 by mouth 2 ity of tablet 18:38: (two) [place] [address] times Medical daily. Branch benazepriL 2020-0 Yes 10mg Take 10 mg U nivers 10 mg 3-26 by mouth ity of tablet 18:38: daily. [address] hydroCHLORO 1-0 Yes 25mg Take 25 mg Univers thiazide 25 3-26 by mouth ity of mg tablet 18:38: daily. [address] carvediloL 2020-0 Yes 25mg Take 25 mg U nivers 25 mg 3-26 by mouth 2 ity of tablet 18:38: (two) [place] [address] times Medical daily with Branch meals. busPIRone 2021-0 Yes 30mg Take 30 mg Un igor 30 mg 3-26 by mouth 2 ity of tablet 18:38: (two) [place] 04 times Medical daily. Branch benazepriL 2021-0 Yes 10mg Take 10 mg U nivers 10 mg 3-26 by mouth ity of tablet 18:38: daily. [address] hydroCHLORO 2021-0 Yes 25mg Take 25 mg Univers thiazide 25 3-26 by mouth ity of mg tablet 18:38: daily. [address] carvediloL 2021-0 Yes 25mg Take 25 mg U nivers 25 mg 3-26 by mouth 2 ity of tablet 18:38: (two) [place] 04 times Medical daily with Branch meals. busPIRone 2021-0 Yes 30mg Take 30 mg Un igor 30 mg 3-26 by mouth 2 ity of tablet 18:38: (two) [place] [address] times Medical daily. Branch benazepriL 1-0 Yes 10mg Take 10 mg U nivers 10 mg 3-26 by mouth ity of tablet 18:38: daily. [address] hydroCHLORO 2020-0 Yes 25mg Take 25 mg Univers thiazide 25 3-26 by mouth ity of mg tablet 18:38: daily. [address] carvediloL 1-0 Yes 25mg Take 25 mg U nivers 25 mg 3-26 by mouth 2 ity of tablet 18:38: (two) [place] [address] times Medical daily with Branch meals. busPIRone 2021-0 Yes 30mg Take 30 mg Un igor 30 mg 3-26 by mouth 2 ity of tablet 18:38: (two) [place] [address] times Medical daily. Branch benazepriL 2021-0 Yes 10mg Take 10 mg U nivers 10 mg 3-26 by mouth ity of tablet 18:38: daily. [address] hydroCHLORO 1-0 Yes 25mg Take 25 mg Univers thiazide 25 3-26 by mouth ity of mg tablet 18:38: daily. [address] carvediloL 2021-0 Yes 25mg Take 25 mg U nivers 25 mg 3-26 by mouth 2 ity of tablet 18:38: (two) [place] [address] times Medical daily with Branch meals. busPIRone 2021-0 Yes 30mg Take 30 mg Un igor 30 mg 3-26 by mouth 2 ity of tablet 18:38: (two) [place] 04 times Medical daily. Branch benazepriL 2021-0 Yes 10mg Take 10 mg U nivers 10 mg 3-26 by mouth ity of tablet 18:38: daily. [address] hydroCHLORO 2021-0 Yes 25mg Take 25 mg Univers thiazide 25 3-26 by mouth ity of mg tablet 18:38: daily. [address] carvediloL 2021-0 Yes 25mg Take 25 mg U nivers 25 mg 3-26 by mouth 2 ity of tablet 18:38: (two) [place] 04 times Medical daily with Branch meals. busPIRone 2021-0 Yes 30mg Take 30 mg Un igor 30 mg 3-26 by mouth 2 ity of tablet 18:38: (two) [place] 04 times Medical daily. Branch benazepriL 2021-0 Yes 10mg Take 10 mg U nivers 10 mg 3-26 by mouth ity of tablet 18:38: daily. [address] hydroCHLORO 2021-0 Yes 25mg Take 25 mg Univers thiazide 25 3-26 by mouth ity of mg tablet 18:38: daily. [address] carvediloL 2021-0 Yes 25mg Take 25 mg U nivers 25 mg 3-26 by mouth 2 ity of tablet 18:38: (two) [place] [address] times Medical daily with Branch meals. busPIRone 2021-0 Yes 30mg Take 30 mg Un igor 30 mg 3-26 by mouth 2 ity of tablet 18:38: (two) [place] 04 times Medical daily. Branch benazepriL 2021-0 Yes 10mg Take 10 mg U nivers 10 mg 3-26 by mouth ity of tablet 18:38: daily. [address] hydroCHLORO 2021-0 Yes 25mg Take 25 mg Univers thiazide 25 3-26 by mouth ity of mg tablet 18:38: daily. [address] carvediloL 2021-0 Yes 25mg Take 25 mg U nivers 25 mg 3-26 by mouth 2 ity of tablet 18:38: (two) [place] [address] times Medical daily with Branch meals. busPIRone 2021-0 Yes 30mg Take 30 mg Un igor 30 mg 3-26 by mouth 2 ity of tablet 18:38: (two) [place] 04 times Medical daily. Branch benazepriL 2021-0 Yes 10mg Take 10 mg U nivers 10 mg 3-26 by mouth ity of tablet 18:38: daily. [address] hydroCHLORO 2021-0 Yes 25mg Take 25 mg Univers thiazide 25 3-26 by mouth ity of mg tablet 18:38: daily. [address] carvediloL 2021-0 Yes 25mg Take 25 mg U nivers 25 mg 3-26 by mouth 2 ity of tablet 18:38: (two) [place] 04 times Medical daily with Branch meals. busPIRone 2021-0 Yes 30mg Take 30 mg Un igor 30 mg 3-26 by mouth 2 ity of tablet 18:38: (two) [place] 04 times Medical daily. Branch benazepriL 2021-0 Yes 10mg Take 10 mg U nivers 10 mg 3-26 by mouth ity of tablet 18:38: daily. [address] hydroCHLORO 1-0 Yes 25mg Take 25 mg Univers thiazide 25 3-26 by mouth ity of mg tablet 18:38: daily. [address] carvediloL 2021-0 Yes 25mg Take 25 mg U nivers 25 mg 3-26 by mouth 2 ity of tablet 18:38: (two) [place] [address] times Medical daily with Branch meals. busPIRone 2021-0 Yes 30mg Take 30 mg Un igor 30 mg 3-26 by mouth 2 ity of tablet 18:38: (two) [place] [address] times Medical daily. Branch benazepriL 2021-0 Yes 10mg Take 10 mg U nivers 10 mg 3-26 by mouth ity of tablet 18:38: daily. [address] hydroCHLORO 2021-0 Yes 25mg Take 25 mg Univers thiazide 25 3-26 by mouth ity of mg tablet 18:38: daily. [address] carvediloL 2021-0 Yes 25mg Take 25 mg U nivers 25 mg 3-26 by mouth 2 ity of tablet 18:38: (two) [place] [address] times Medical daily with Branch meals. busPIRone 2021-0 Yes 30mg Take 30 mg Un igor 30 mg 3-26 by mouth 2 ity of tablet 18:38: (two) [place] 04 times Medical daily. Branch benazepriL 2021-0 Yes 10mg Take 10 mg U nivers 10 mg 3-26 by mouth ity of tablet 18:38: daily. [address] hydroCHLORO 1-0 Yes 25mg Take 25 mg Univers thiazide 25 3-26 by mouth ity of mg tablet 18:38: daily. [address] carvediloL 2020-0 Yes 25mg Take 25 mg U nivers 25 mg 3-26 by mouth 2 ity of tablet 18:38: (two) [place] 04 times Medical daily with Branch meals. busPIRone 2021-0 Yes 30mg Take 30 mg Un igor 30 mg 3-26 by mouth 2 ity of tablet 18:38: (two) [place] 04 times Medical daily. Branch benazepriL 1-0 Yes 10mg Take 10 mg U nivers 10 mg 3-26 by mouth ity of tablet 18:38: daily. [address] hydroCHLORO 2020-0 Yes 25mg Take 25 mg Univers thiazide 25 3-26 by mouth ity of mg tablet 18:38: daily. [address] carvediloL 2020-0 Yes 25mg Take 25 mg U nivers 25 mg 3-26 by mouth 2 ity of tablet 18:38: (two) [place] 04 times Medical daily with Branch meals. busPIRone 1-0 Yes 30mg Take 30 mg Un igor 30 mg 3-26 by mouth 2 ity of tablet 18:38: (two) [place] 04 times Medical daily. Branch benazepriL 1-0 Yes 10mg Take 10 mg U nivers 10 mg 3-26 by mouth ity of tablet 18:38: daily. [address] hydroCHLORO 1-0 Yes 25mg Take 25 mg Univers thiazide 25 3-26 by mouth ity of mg tablet 18:38: daily. [address] carvediloL 1-0 Yes 25mg Take 25 mg U nivers 25 mg 3-26 by mouth 2 ity of tablet 18:38: (two) [place] 04 times Medical daily with Branch meals. busPIRone 2021-0 Yes 30mg Take 30 mg Un igor 30 mg 3-26 by mouth 2 ity of tablet 18:38: (two) [place] 04 times Medical daily. Branch benazepriL 2021-0 Yes 10mg Take 10 mg U nivers 10 mg 3-26 by mouth ity of tablet 18:38: daily. [address] Branch hydroCHLORO Yes 25mg Take 25 mg Univers thiazide 25 - by mouth ity of mg tablet 18:38: daily. [address] iohexol 2020- No [id number] 120mL 120 mL, Univers (OMNIPAQUE 12-12 Intravenou it y of 350 17:30: 17:21 s, ONCE, 1 [place] BULK-150 00 :00 dose, Fri Medica l mL) 12/12/20 at Branch injection 1230, 120 mL Routine aspirin 81 2020- No 81mg Take 81 mg Univers mg EC 12-12 by mouth ity of tablet 16:57: 00:00 daily. [place] 40 :00 [facility] Branch varenicline 2020- No 1mg Take 1 mg Univers (CHANTIX) 1 12-12 by mouth 2 i ty of mg tablet 16:57: 00:00 (two) [place] 18 :00 times Medical daily. Branch predniSONE 2020- No 20mg Take 20 mg Univers 20 mg 12-12 by mouth ity of tablet 16:57: 00:00 daily. [place] 12 :00 [facility] Branch fluticasone 2020- No 1{puff} Inhale 1 Univers -umeclidin- 12-12 Puff ity of vilanter 16:56: 00:00 daily. [place] (TRELEGY 46 :00 Medical ELLIPTA) Branch 100-62.5-25 mcg DsDv cefpodoxime Yes [id number] 100mg Take 1 Univers 100 mg 3-26 tablet by ity of tablet 00:00: mouth 2 [place] 00 (two) Medical times [place] daily. cefpodoxime 0 Yes [id number] 100mg Take 1 Univers 100 mg 3-26 tablet by ity of tablet 00:00: mouth 2 [place] 00 (two) Medical times [place] daily. cefpodoxime 2020-0 Yes [id number] 100mg Take 1 Univers 100 mg 3-26 tablet by ity of tablet 00:00: mouth 2 [place] 00 (two) Medical times [place] daily. cefpodoxime 2020-0 Yes [id number] 100mg Take 1 Univers 100 mg 3-26 tablet by ity of tablet 00:00: mouth [place] (two) Medical times Branch daily. cefpodoxime 2021-0 Yes [id number] 100mg Take 1 Univers 100 mg 3-26 tablet by ity of tablet 00:00: mouth [place] (two) Medical times Branch daily. cefpodoxime 2021-0 Yes [id number] 100mg Take 1 Univers 100 mg 3-26 tablet by ity of tablet 00:00: mouth [place] (two) Medical times Branch daily. cefpodoxime 2021-0 Yes [id number] 100mg Take 1 Univers 100 mg 3-26 tablet by ity of tablet 00:00: mouth [place] (two) Medical times Branch daily. cefpodoxime 2021-0 Yes [id number] 100mg Take 1 Univers 100 mg 3-26 tablet by ity of tablet 00:00: mouth [place] (two) Medical times Branch daily. cefpodoxime 2021-0 Yes [id number] 100mg Take 1 Univers 100 mg 3-26 tablet by ity of tablet 00:00: mouth [place] (two) Medical times Branch daily. cefpodoxime 2021-0 Yes [id number] 100mg Take 1 Univers 100 mg 3-26 tablet by ity of tablet 00:00: mouth [place] (two) Medical times Branch daily. cefpodoxime 2021-0 Yes [id number] 100mg Take 1 Univers 100 mg 3-26 tablet by ity of tablet 00:00: mouth [place] (two) Medical times Branch daily. cefpodoxime 2021-0 Yes [id number] 100mg Take 1 Univers 100 mg 3-26 tablet by ity of tablet 00:00: mouth [place] (two) Medical times Branch daily. cefpodoxime 2021-0 Yes [id number] 100mg Take 1 Univers 100 mg 3-26 tablet by ity of tablet 00:00: mouth [place] (two) Medical times Branch daily. cefpodoxime 2021-0 Yes [id number] 100mg Take 1 Univers 100 mg 3-26 tablet by ity of tablet 00:00: mouth [place] (two) Medical times Branch daily. cefpodoxime 2021-0 Yes [id number] 100mg Take 1 Univers 100 mg 3-26 tablet by ity of tablet 00:00: mouth [place] (two) Medical times Branch daily. cefpodoxime 0 2020- No [id number] 100mg Take 1 Univers 100 mg 12-12 tablet by ity of tablet 00:00: 00:00 mouth 2 [place] 00 :00 (two) Medical times Branch daily for 7 days. XARELTO 15 0 Yes Univers mg tablet 10-16 ity of 00:00: [place] Medical [facility] XARELTO 15 2020-0 Yes Univers mg tablet 10-16 ity of 00:00: [place] [facility] XARELTO 15 2020-0 Yes Univers mg tablet 10-16 ity of 00:00: [place] [facility] XARELTO 15 2020-0 Yes Univers mg tablet 10-16 ity of 00:00: [place] [facility] XARELTO 15 2020-0 Yes Univers mg tablet 10-16 ity of 00:00: [place] [facility] XARELTO 15 2020-0 Yes Univers mg tablet 10-16 ity of 00:00: [place] [facility] XARELTO 15 2020-0 Yes Univers mg tablet 10-16 ity of 00:00: [place] [facility] XARELTO 15 2020-0 Yes Univers mg tablet 10-16 ity of 00:00: [place] [facility] XARELTO 15 2020-0 Yes Univers mg tablet 10-16 ity of 00:00: [place] [facility] XARELTO 15 2020-0 Yes Univers mg tablet 10-16 ity of 00:00: [place] [facility] XARELTO 15 2020-0 Yes Univers mg tablet 10-16 ity of 00:00: [place] [facility] XARELTO 15 2020-0 Yes Univers mg tablet 10-16 ity of 00:00: [place] [facility] XARELTO 15 2020-0 Yes Univers mg tablet 28 ity of 00:00: [place] [facility] XARELTO 15 2020-0 Yes Univers mg tablet 10-16 ity of 00:00: [place] [facility] XARELTO 15 2020-0 Yes Univers mg tablet 10-16 ity of 00:00: [place] [facility] XARELTO 15 2020-0 Yes Univers mg tablet -28 ity of 00:00: [place] [facility] XARELTO 15 2020-0 Yes Univers mg tablet -28 ity of 00:00: [place] [id number] Medical Branch XARELTO 15 2020-0 Yes Univers mg tablet 10-16 ity of 00:00: [place] [address] Medical [place] omeprazole 2018-09 Yes 40mg Take 40 mg U nivers 40 mg 2-10 by mouth ity of capsule 00:11: daily. [address] omeprazole 2018-09 Yes 40mg Take 40 mg U nivers 40 mg 2-10 by mouth ity of capsule 00:11: daily. [address] varenicline 2018-09 Yes 1mg Take 1 mg U nivers (CHANTIX) 1 2-10 by mouth 2 it y of mg tablet 00:11: (two) [address] Medical daily. Branch predniSONE 2018-09 Yes 20mg Take 20 mg U nivers 20 mg 2-10 by mouth ity of tablet 00:11: daily. [address] omeprazole 2018-09 Yes 40mg Take 40 mg U nivers 40 mg 2-10 by mouth ity of capsule 00:11: daily. [address] fluticasone 2018-09 Yes 1{puff} Inhale 1 Univers -umeclidin- 2-10 Puff ity of vilanter 00:11: daily. [address]) Branch 100-62.5-25 mcg DsDv aspirin 81 2018-09 Yes 81mg Take 81 mg U nivers mg EC 2-10 by mouth ity of tablet 00:11: daily. [address] varenicline 2018-09 Yes 1mg Take 1 mg U nivers (CHANTIX) 1 2-10 by mouth 2 it y of mg tablet 00:11: (two) [place] [address] times Medical daily. Branch predniSONE 2018-09 Yes 20mg Take 20 mg U nivers 20 mg 2-10 by mouth ity of tablet 00:11: daily. [address] omeprazole 2018-09 Yes 40mg Take 40 mg U nivers 40 mg 2-10 by mouth ity of capsule 00:11: daily. [address] fluticasone 2018-09 Yes 1{puff} Inhale 1 Univers -umeclidin- 2-10 Puff ity of vilanter 00:11: daily. [address]) Branch 100-62.5-25 mcg DsDv aspirin 81 2018-09 Yes 81mg Take 81 mg U nivers mg EC 2-10 by mouth ity of tablet 00:11: daily. [address] varenicline 2018-09 Yes 1mg Take 1 mg U nivers (CHANTIX) 1 2-10 by mouth 2 it y of mg tablet 00:11: (two) [place] [address] times Medical daily. Branch predniSONE 2018-09 Yes 20mg Take 20 mg U nivers 20 mg 2-10 by mouth ity of tablet 00:11: daily. [address] omeprazole 2018-09 Yes 40mg Take 40 mg U nivers 40 mg 2-10 by mouth ity of capsule 00:11: daily. [address] fluticasone 2018-09 Yes 1{puff} Inhale 1 Univers -umeclidin- 2-10 Puff ity of vilanter 00:11: daily. [place] ([address]) Branch 100-62.5-25 mcg DsDv aspirin 81 2018-09 Yes 81mg Take 81 mg U nivers mg EC 2-10 by mouth ity of tablet 00:11: daily. [address] varenicline 2018-09 Yes 1mg Take 1 mg U nivers (CHANTIX) 1 2-10 by mouth 2 it y of mg tablet 00:11: (two) [address] daily. Branch predniSONE 2018-09 Yes 20mg Take 20 mg U nivers 20 mg 2-10 by mouth ity of tablet 00:11: daily. [address] omeprazole 2018-09 Yes 40mg Take 40 mg U nivers 40 mg 2-10 by mouth ity of capsule 00:11: daily. [address] fluticasone 2018-09 Yes 1{puff} Inhale 1 Univers -umeclidin- 2-10 Puff ity of vilanter 00:11: daily. [place] ([address]) Branch 100-62.5-25 mcg DsDv aspirin 81 2018-09 Yes 81mg Take 81 mg U nivers mg EC 2-10 by mouth ity of tablet 00:11: daily. [address] varenicline 2018-09 Yes 1mg Take 1 mg U nivers (CHANTIX) 1 2-10 by mouth 2 it y of mg tablet 00:11: (two) [address] Medical daily. Branch predniSONE 2018-09 Yes 20mg Take 20 mg U nivers 20 mg 2-10 by mouth ity of tablet 00:11: daily. [address] omeprazole 2018-09 Yes 40mg Take 40 mg U nivers 40 mg 2-10 by mouth ity of capsule 00:11: daily. [address] fluticasone 2018- Yes 1{puff} Inhale 1 Univers -umeclidin- 2-10 Puff ity of vilanter 00:11: daily. [address]) Branch 100-62.5-25 mcg DsDv aspirin 81 2018-09 Yes 81mg Take 81 mg U nivers mg EC 2-10 by mouth ity of tablet 00:11: daily. [address] varenicline 2018-09 Yes 1mg Take 1 mg U nivers (CHANTIX) 1 2-10 by mouth 2 it y of mg tablet 00:11: (two) [address] daily. Branch predniSONE 2018-09 Yes 20mg Take 20 mg U nivers 20 mg 2-10 by mouth ity of tablet 00:11: daily. [address] omeprazole 2018-09 Yes 40mg Take 40 mg U nivers 40 mg 2-10 by mouth ity of capsule 00:11: daily. [address] fluticasone 2018-09 Yes 1{puff} Inhale 1 Univers -umeclidin- 2-10 Puff ity of vilanter 00:11: daily. [place] ([address]) Branch 100-62.5-25 mcg DsDv aspirin 81 2018-09 Yes 81mg Take 81 mg U nivers mg EC 2-10 by mouth ity of tablet 00:11: daily. [address] omeprazole 2018- Yes 40mg Take 40 mg U nivers 40 mg 2-10 by mouth ity of capsule 00:11: daily. [address] omeprazole 2018- Yes 40mg Take 40 mg U nivers 40 mg 2-10 by mouth ity of capsule 00:11: daily. [address] omeprazole 2018- Yes 40mg Take 40 mg U nivers 40 mg 2-10 by mouth ity of capsule 00:11: daily. [address] omeprazole 2018- Yes 40mg Take 40 mg U nivers 40 mg 2-10 by mouth ity of capsule 00:11: daily. [address] omeprazole 2018-09 Yes 40mg Take 40 mg U nivers 40 mg 2-10 by mouth ity of capsule 00:11: daily. [address] omeprazole 2018-09 Yes 40mg Take 40 mg U nivers 40 mg 2-10 by mouth ity of capsule 00:11: daily. [address] omeprazole 2018-09 Yes 40mg Take 40 mg U nivers 40 mg 2-10 by mouth ity of capsule 00:11: daily. [address] omeprazole 2018-09 Yes 40mg Take 40 mg U nivers 40 mg 2-10 by mouth ity of capsule 00:11: daily. [address] omeprazole 2018-09 Yes 40mg Take 40 mg U nivers 40 mg 2-10 by mouth ity of capsule 00:11: daily. [address] omeprazole 2018-09 Yes 40mg Take 40 mg U nivers 40 mg 2-10 by mouth ity of capsule 00:11: daily. [address] omeprazole 2018-09 Yes 40mg Take 40 mg U nivers 40 mg 2-10 by mouth ity of capsule 00:11: daily. [address] omeprazole 2018-09 Yes 40mg Take 40 mg U nivers 40 mg 2-10 by mouth ity of capsule 00:11: daily. [address] omeprazole 2018-09 Yes 40mg Take 40 mg U nivers 40 mg 2-10 by mouth ity of capsule 00:11: daily. [address] KCL 20 mEq 2018-09 Yes [id number] 40meq Take 2 Univers tablet 2-09 tablets by ity of 00:00: mouth [place] 00 daily. Medical Branch KCL 20 mEq 2018-09 Yes [id number] 40meq Take 2 Univers tablet 2-09 tablets by ity of 00:00: mouth [place] 00 daily. Medical Branch atorvastati 2018-09 Yes [id number] 20mg Take 1 Univers n 20 mg 2-09 tablet by ity of tablet 00:00: mouth at [place] [address] bedtime. Medical Branch metoprolol 2018-09 Yes [id number] 50mg Take 1 [facility] succinate 2-09 tablet by ity o f XL 50 mg 24 00:00: mouth 2 [place] hr tablet 00 (two) Medical times Branch daily. furosemide 2018-09 Yes [id number] 40mg Take 1 [facility] 40 mg 2-09 tablet by ity of tablet 00:00: mouth [place] 00 every Medical morning Branch and evening. KCL 20 mEq 2018-09 Yes [id number] 40meq Take 2 [facility] tablet 2-09 tablets by ity of 00:00: mouth [place] 00 daily. Medical Branch atorvastati 2018-09 Yes [id number] 20mg Take 1 [facility] n 20 mg 2-09 tablet by ity of tablet 00:00: mouth at [place] 00 bedtime. Medical Branch metoprolol 2018-09 Yes [id number] 50mg Take 1 [facility] succinate 2-09 tablet by ity o f XL 50 mg 24 00:00: mouth 2 [place] hr tablet 00 (two) Medical times Branch daily. furosemide 2018-09 Yes [id number] 40mg Take 1 [facility] 40 mg 2-09 tablet by ity of tablet 00:00: mouth [place] 00 every Medical morning Branch and evening. KCL 20 mEq 2018-09 Yes [id number] 40meq Take 2 [facility] tablet 2-09 tablets by ity of 00:00: mouth [place] 00 daily. Medical Branch atorvastati 2018-09 Yes [id number] 20mg Take 1 [facility] n 20 mg 2-09 tablet by ity of tablet 00:00: mouth at [place] 00 bedtime. Medical Branch metoprolol 2018-09 Yes [id number] 50mg Take 1 [facility] succinate 2-09 tablet by ity o f XL 50 mg 24 00:00: mouth 2 [place] hr tablet 00 (two) Medical times Branch daily. furosemide 2018-09 Yes [id number] 40mg Take 1 [facility] 40 mg 2-09 tablet by ity of tablet 00:00: mouth [place] 00 every Medical morning Branch and evening. KCL 20 mEq 2018-09 Yes [id number] 40meq Take 2 [facility] tablet 2-09 tablets by ity of 00:00: mouth [place] 00 daily. Medical Branch atorvastati 2018-09 Yes [id number] 20mg Take 1 [facility] n 20 mg 2-09 tablet by ity of tablet 00:00: mouth at [place] 00 bedtime. Medical Branch metoprolol 2018-09 Yes [id number] 50mg Take 1 [facility] succinate 2-09 tablet by ity o f XL 50 mg 24 00:00: mouth 2 [place] hr tablet 00 (two) Medical times Branch daily. furosemide 2018-09 Yes [id number] 40mg Take 1 [facility] 40 mg 2-09 tablet by ity of tablet 00:00: mouth [place] 00 every Medical morning Branch and evening. KCL 20 mEq 2018-09 Yes [id number] 40meq Take 2 [facility] tablet 2-09 tablets by ity of 00:00: mouth [place] 00 daily. Medical Branch atorvastati 2018-09 Yes [id number] 20mg Take 1 [facility] n 20 mg 2-09 tablet by ity of tablet 00:00: mouth at [place] 00 bedtime. Medical Branch metoprolol 2018-09 Yes [id number] 50mg Take 1 [facility] succinate 2-09 tablet by ity o f XL 50 mg 24 00:00: mouth 2 [place] hr tablet 00 (two) Medical times Branch daily. furosemide 2018-09 Yes [id number] 40mg Take 1 [facility] 40 mg 2-09 tablet by ity of tablet 00:00: mouth [place] 00 every Medical morning Branch and evening. KCL 20 mEq 2018-09 Yes [id number] 40meq Take 2 [facility] tablet 2-09 tablets by ity of 00:00: mouth [place] 00 daily. Medical Branch atorvastati 2018-09 Yes [id number] 20mg Take 1 [facility] n 20 mg 2-09 tablet by ity of tablet 00:00: mouth at [place] 00 bedtime. Medical Branch metoprolol 2018-09 Yes [id number] 50mg Take 1 [facility] succinate 2-09 tablet by ity o f XL 50 mg 24 00:00: mouth 2 [place] hr tablet 00 (two) Medical times Branch daily. furosemide 2018-09 Yes [id number] 40mg Take 1 [facility] 40 mg 2-09 tablet by ity of tablet 00:00: mouth [place] 00 every Medical morning Branch and evening. KCL 20 mEq 2018-09 Yes [id number] 40meq Take 2 [facility] tablet 2-09 tablets by ity of 00:00: mouth [place] 00 daily. Medical Branch KCL 20 mEq 2018-09 Yes [id number] 40meq Take 2 [facility] tablet 2-09 tablets by ity of 00:00: mouth [place] 00 daily. Medical Branch KCL 20 mEq 2018-09 Yes [id number] 40meq Take 2 [facility] tablet 2-09 tablets by ity of 00:00: mouth [place] 00 daily. Medical Branch KCL 20 mEq 2018-09 Yes [id number] 40meq Take 2 [facility] tablet 2-09 tablets by ity of 00:00: mouth [place] 00 daily. Medical Branch KCL 20 mEq 2018-09 Yes [id number] 40meq Take 2 [facility] tablet 2-09 tablets by ity of 00:00: mouth [place] 00 daily. Medical Branch KCL 20 mEq 2018-09 Yes [id number] 40meq Take 2 [facility] tablet 2-09 tablets by ity of 00:00: mouth [place] 00 daily. Medical Branch KCL 20 mEq 2018-09 Yes [id number] 40meq Take 2 [facility] tablet 2-09 tablets by ity of 00:00: mouth [place] 00 daily. Medical Branch KCL 20 mEq 2018-09 Yes [id number] 40meq Take 2 [facility] tablet 2-09 tablets by ity of 00:00: mouth [place] 00 daily. Medical Branch KCL 20 mEq 2018-09 Yes [id number] 40meq Take 2 [facility] tablet 2-09 tablets by ity of 00:00: mouth [place] 00 daily. Medical Branch KCL 20 mEq 2018-09 Yes [id number] 40meq Take 2 [facility] tablet 2-09 tablets by ity of 00:00: mouth [place] 00 daily. Medical Branch KCL 20 mEq 2018-09 Yes [id number] 40meq Take 2 [facility] tablet 2-09 tablets by ity of 00:00: mouth [place] 00 daily. Medical Branch KCL 20 mEq 2018-09 Yes [id number] 40meq Take 2 [facility] tablet 2-09 tablets by ity of 00:00: mouth [place] 00 daily. Medical Branch KCL 20 mEq 2018-09 Yes [id number] 40meq Take 2 [facility] tablet 2-09 tablets by ity of 00:00: mouth [place] 00 daily. Medical Branch KCL 20 mEq 2018-09 Yes [id number] 40meq Take 2 [facility] tablet 2-09 tablets by ity of 00:00: mouth [place] 00 daily. Medical Branch atorvastati 2018-09- No [id number] 20mg Take 1 [facility] n 20 mg 10-28 tablet by ity of tablet 00:00: 00:00 mouth at [place] 00 :00 bedtime. Medical Branch metoprolol 2018-09- No [id number] 50mg Take 1 [facility] succinate 2-05 22- tablet by ity of XL 50 mg 24 00:00: 00:00 mouth 2 [place] hr tablet 00 :00 (two) Medical times Branch daily. furosemide 2018-09- No [id number] 40mg Take 1 [facility] 40 mg 2-09 03- tablet by ity of tablet 00:00: 00:00 mouth [place] 00 :00 every Medical morning Branch and evening. ipratropium 2018- Yes 3mL 3 mL, Unive rs -albuterol 05-04 Inhalation ity of (DUONEB) 13:00: , QID, [place] 0.5 mg-3 00 First dose Medic al mg(2.5 mg on Tue Branch base)/3 mL 05/04/19 at nebulizer 0800, solution 3 Until mL Discontinu ed, Routine ibuprofen Yes [id number] 600mg Take 1 [facility] 600 mg 5-31 tablet by ity of tablet 00:00: mouth [place] 00 every 8 Medical (eight) Branch hours as needed (PAIN). ibuprofen Yes [id number] 600mg Take 1 [facility] nivers 600 mg 5-31 tablet by ity of tablet 00:00: mouth [place] 00 every 8 Medical (eight) Branch hours as needed (pain). ibuprofen 2019- No [id number] 600mg Take 1 [facility] 600 mg 5-31 08-15 tablet by ity of tablet 00:00: 00:00 mouth [place] 00 :00 every 8 Medical (eight) Branch hours as needed (PAIN). ibuprofen 2019- No [id number] 600mg Take 1 [facility] 600 mg 5-31 08-15 tablet by ity of tablet 00:00: 00:00 mouth [place] 00 :00 every 8 Medical (eight) Branch hours as needed (pain). magnesium Yes 400mg Take 1 Tab U nivers oxide 2-23 by mouth 3 ity of (MAG-OX 00:00: (three) [place] 400) 400 mg 00 times Medical tablet daily. Branch enalapril Yes [id number] 2.5mg Take 1 Tab [facility] (VASOTEC) 2-23 by mouth 2 ity of 2.5 mg 00:00: (two) [place] tablet 00 times Medical daily. Branch pantoprazol Yes 40mg Take 1 Tab [facility] e 2-23 by mouth ity of (PROTONIX) 00:00: daily. [place] 40 mg EC 00 Medical tablet Branch KCL Yes 20meq Take 1 Tab Univer s (KLOR-CON 2-23 by mouth ity of M20) 20 mEq 00:00: daily. [place] tablet 00 [facility] furosemide Yes [id number] 40mg Take 1 Tab [facility] (LASIX) 40 2-23 by mouth 2 ity of mg tablet 00:00: (two) [place] 00 times Medical daily. Branch metoprolol Yes 100mg Take 1 Tab [facility] succinate 2-23 by mouth ity of XL (TOPROL 00:00: daily. [place] XL) 100 mg 00 Medical 24 hr Branch tablet magnesium 2019- No 400mg Take 1 Tab [facility] oxide -11 05-15 by mouth 3 ity of (MAG-OX 00:00: 00:00 (three) [place] 400) 400 mg 00 :00 times Medical tablet daily. Branch enalapril 2019- No [id number] 2.5mg Take 1 Tab [facility] (VASOTEC) 2- 08-15 by mouth 2 ity of 2.5 mg 00:00: 00:00 (two) [place] tablet 00 :00 times Medical daily. Branch pantoprazol 2018- No 40mg Take 1 Tab [facility] e -11 05-15 by mouth ity of (PROTONIX) 00:00: 00:00 daily. [place] 40 mg EC 00 :00 Medical tablet Branch KCL 2019- No 20meq Take 1 Tab Unive rs (KLOR-CON -11 05-15 by mouth ity o f M20) 20 mEq 00:00: 00:00 daily. [place] [facility] tablet 00 :00 Medical Branch furosemide 2019- No [id number] 40mg Take 1 Tab [facility] (LASIX) 40 2- 08-15 by mouth 2 it y of mg tablet 00:00: 00:00 (two) [place] 00 :00 times Medical daily. Branch metoprolol 2019- No 100mg Take 1 Tab [facility] succinate - 08-15 by mouth ity o f XL (TOPROL 00:00: 00:00 daily. [place] XL) 100 mg 00 :00 Medical 24 hr Branch tablet aspirin 81 2013-09 Yes 81mg Take 1 Tab U nivers mg chewable 2-17 by mouth ity of tablet 00:00: daily. [place] 00 Medical Branch ipratropium 2013-09 Yes .5mg Inhale 2.5 [facility] (ATROVENT) 2-17 mL 4 ity of 0.02 % 00:00: (four) [place] nebulizer 00 times Medical solution daily. Branch levalbutero 2013-09 Yes .31mg Inhale Uni vers l (XOPENEX) 2-17 0.31 mg 3 ity of 0.31 mg/3 00:00: (three) [place] mL 00 times Medical nebulizer daily. Branch solution aspirin 81 2013-09 Yes 81mg Take 1 Tab U nivers mg chewable 2-17 by mouth ity of tablet 00:00: daily. [place] [facility] ipratropium 2013-09 Yes .5mg Inhale 2.5 [facility] (ATROVENT) 2-17 mL 4 ity of 0.02 % 00:00: (four) [place] nebulizer 00 times Medical solution daily. Branch levalbutero 2013-09 Yes .31mg Inhale [facility] vers [facility] (XOPENEX) 2-17 0.31 mg 3 ity of 0.31 mg/3 00:00: (three) [place] mL 00 times Medical nebulizer daily. Branch solution aspirin 81 2013-09 Yes 81mg Take 1 Tab U nivers mg chewable 2-17 by mouth ity of tablet 00:00: daily. [place] [facility] ipratropium 2013-09 Yes .5mg Inhale 2.5 [facility] (ATROVENT) 2-17 mL 4 ity of 0.02 % 00:00: (four) [place] nebulizer 00 times Medical solution daily. Branch levalbutero 2013-09 Yes .31mg Inhale [facility] vers [facility] (XOPENEX) 2-17 0.31 mg 3 ity of 0.31 mg/3 00:00: (three) [place] mL 00 times Medical nebulizer daily. Branch solution aspirin 81 2013-09 Yes 81mg Take 1 Tab U nivers mg chewable 2-17 by mouth ity of tablet 00:00: daily. [place] [facility] ipratropium 2013-09 Yes .5mg Inhale 2.5 [facility] (ATROVENT) 2-17 mL 4 ity of 0.02 % 00:00: (four) [place] nebulizer 00 times Medical solution daily. Branch levalbutero 2013-09 Yes .31mg Inhale [facility] vers l (XOPENEX) 2-17 0.31 mg 3 ity of 0.31 mg/3 00:00: (three) [place] mL 00 times Medical nebulizer daily. Branch solution aspirin 81 2013-09 Yes 81mg Take 1 Tab U nivers mg chewable 2-17 by mouth ity of tablet 00:00: daily. Medical Branch ipratropium 2013-09 Yes .5mg Inhale 2.5 [facility] (ATROVENT) 2-17 mL 4 ity of 0.02 % 00:00: (four) [place] nebulizer 00 times Medical solution daily. Branch levalbutero 2013-09 Yes .31mg Inhale [facility] vers l (XOPENEX) 2-17 0.31 mg 3 ity of 0.31 mg/3 00:00: (three) [place] mL 00 times Medical nebulizer daily. Branch solution aspirin 81 2013-09 Yes 81mg Take 1 Tab U nivers mg chewable 2-17 by mouth ity of tablet 00:00: daily. [place] [facility] ipratropium 2013-09 Yes .5mg Inhale 2.5 [facility] (ATROVENT) 2-17 mL 4 ity of 0.02 % 00:00: (four) [place] nebulizer 00 times Medical solution daily. Branch levalbutero 2013-09 Yes .31mg Inhale Uni vers l (XOPENEX) 2-17 0.31 mg 3 ity of 0.31 mg/3 00:00: (three) [place] mL 00 times Medical nebulizer daily. Branch solution aspirin 81 2013-09 Yes 81mg Take 1 Tab U nivers mg chewable 2-17 by mouth ity of tablet 00:00: daily. [place] [facility] ipratropium 2013-09 Yes .5mg Inhale 2.5 [facility] (ATROVENT) 2-17 mL 4 ity of 0.02 % 00:00: (four) [place] nebulizer 00 times Medical solution daily. Branch levalbutero 2013-09 Yes .31mg Inhale [facility] vers [facility] (XOPENEX) 2-17 0.31 mg 3 ity of 0.31 mg/3 00:00: (three) [place] mL 00 times Medical nebulizer daily. Branch solution aspirin 81 2013-09 Yes 81mg Take 1 Tab U nivers mg chewable 2-17 by mouth ity of tablet 00:00: daily. [place] [facility] ipratropium 2013-09 Yes .5mg Inhale 2.5 [facility] (ATROVENT) 2-17 mL 4 ity of 0.02 % 00:00: (four) [place] nebulizer 00 times Medical solution daily. Branch levalbutero 2013-09 Yes .31mg Inhale [facility] vers l (XOPENEX) 2-17 0.31 mg 3 ity of 0.31 mg/3 00:00: (three) [place] mL 00 times Medical nebulizer daily. Branch solution aspirin 81 2013-09 Yes 81mg Take 1 Tab U nivers mg chewable 2-17 by mouth ity of tablet 00:00: daily. [place] [facility] ipratropium 2013-09 Yes .5mg Inhale 2.5 [facility] (ATROVENT) 2-17 mL 4 ity of 0.02 % 00:00: (four) [place] nebulizer 00 times Medical solution daily. Branch levalbutero 2013-09 Yes .31mg Inhale [facility] vers l (XOPENEX) 2-17 0.31 mg 3 ity of 0.31 mg/3 00:00: (three) [place] mL 00 times Medical nebulizer daily. Branch solution aspirin 81 2013-09 Yes 81mg Take 1 Tab U nivers mg chewable 2-17 by mouth ity of tablet 00:00: daily. [place] [facility] ipratropium 2013-09 Yes .5mg Inhale 2.5 [facility] (ATROVENT) 2-17 mL 4 ity of 0.02 % 00:00: (four) [place] nebulizer 00 times Medical solution daily. Branch levalbutero 2013-09 Yes .31mg Inhale [facility] vers l (XOPENEX) 2-17 0.31 mg 3 ity of 0.31 mg/3 00:00: (three) [place] mL 00 times Medical nebulizer daily. Branch solution aspirin 81 2013-09 Yes 81mg Take 1 Tab U nivers mg chewable 2-17 by mouth ity of tablet 00:00: daily. [place] [facility] ipratropium 2013-09 Yes .5mg Inhale 2.5 [facility] (ATROVENT) 2-17 mL 4 ity of 0.02 % 00:00: (four) [place] nebulizer 00 times Medical solution daily. Branch levalbutero 2013-09 Yes .31mg Inhale [facility] vers l (XOPENEX) 2-17 0.31 mg 3 ity of 0.31 mg/3 00:00: (three) [place] mL 00 times Medical nebulizer daily. Branch solution aspirin 81 2013-09 Yes 81mg Take 1 Tab U nivers mg chewable 2-17 by mouth ity of tablet 00:00: daily. Medical Branch ipratropium 2013-09 Yes .5mg Inhale 2.5 [facility] (ATROVENT) 2-17 mL 4 ity of 0.02 % 00:00: (four) [place] nebulizer 00 times Medical solution daily. Branch levalbutero 2013-09 Yes .31mg Inhale [facility] vers l (XOPENEX) 2-17 0.31 mg 3 ity of 0.31 mg/3 00:00: (three) [place] mL 00 times Medical nebulizer daily. Branch solution aspirin 81 2013-09 Yes 81mg Take 1 Tab U nivers mg chewable 2-17 by mouth ity of tablet 00:00: daily. [place] [facility] ipratropium 2013-09 Yes .5mg Inhale 2.5 [facility] (ATROVENT) 2-17 mL 4 ity of 0.02 % 00:00: (four) [place] nebulizer 00 times Medical solution daily. Branch levalbutero 2013-09 Yes .31mg Inhale [facility] vers l (XOPENEX) 2-17 0.31 mg 3 ity of 0.31 mg/3 00:00: (three) [place] mL 00 times Medical nebulizer daily. Branch solution aspirin 81 2013-09 Yes 81mg Take 1 Tab U nivers mg chewable 2-17 by mouth ity of tablet 00:00: daily. [place] [facility] ipratropium 2013-09 Yes .5mg Inhale 2.5 [facility] (ATROVENT) 2-17 mL 4 ity of 0.02 % 00:00: (four) [place] nebulizer 00 times Medical solution daily. Branch levalbutero 2013-09 Yes .31mg Inhale [facility] vers l (XOPENEX) 2-17 0.31 mg 3 ity of 0.31 mg/3 00:00: (three) [place] mL 00 times Medical nebulizer daily. Branch solution aspirin 81 2013-09 Yes 81mg Take 1 Tab U nivers mg chewable 2-17 by mouth ity of tablet 00:00: daily. [place] [facility] ipratropium 2013-09 Yes .5mg Inhale 2.5 [facility] (ATROVENT) 2-17 mL 4 ity of 0.02 % 00:00: (four) [place] nebulizer 00 times Medical solution daily. Branch levalbutero 2013-09 Yes .31mg Inhale Uni vers l (XOPENEX) 2-17 0.31 mg 3 ity of 0.31 mg/3 00:00: (three) [place] mL 00 times Medical nebulizer daily. Branch solution aspirin 81 2013-09 Yes 81mg Take 1 Tab U nivers mg chewable 2-17 by mouth ity of tablet 00:00: daily. Medical Branch ipratropium 2013-09 Yes .5mg Inhale 2.5 [facility] (ATROVENT) 2-17 mL 4 ity of 0.02 % 00:00: (four) [place] nebulizer 00 times Medical solution daily. Branch levalbutero 2013-09 Yes .31mg Inhale Uni vers l (XOPENEX) 2-17 0.31 mg 3 ity of 0.31 mg/3 00:00: (three) [place] mL 00 times Medical nebulizer daily. Branch solution aspirin 81 2013-09 Yes 81mg Take 1 Tab U nivers mg chewable 2-17 by mouth ity of tablet 00:00: daily. [place] [facility] ipratropium 2013-09 Yes .5mg Inhale 2.5 [facility] (ATROVENT) 2-17 mL 4 ity of 0.02 % 00:00: (four) [place] nebulizer 00 times Medical solution daily. Branch levalbutero 2013-09 Yes .31mg Inhale Uni vers l (XOPENEX) 2-17 0.31 mg 3 ity of 0.31 mg/3 00:00: (three) [place] mL 00 times Medical nebulizer daily. Branch solution aspirin 81 2013-09 Yes 81mg Take 1 Tab U nivers mg chewable 2-17 by mouth ity of tablet 00:00: daily. [place] [facility] ipratropium 2013-09 Yes .5mg Inhale 2.5 [facility] (ATROVENT) 2-17 mL 4 ity of 0.02 % 00:00: (four) [place] nebulizer 00 times Medical solution daily. Branch levalbutero 2013-09 Yes .31mg Inhale Uni vers l (XOPENEX) 2-17 0.31 mg 3 ity of 0.31 mg/3 00:00: (three) [place] mL 00 times Medical nebulizer daily. Branch solution aspirin 81 2013-09 Yes 81mg Take 1 Tab U nivers mg chewable 2-17 by mouth ity of tablet 00:00: daily. Medical Branch ipratropium 2013-09 Yes .5mg Inhale 2.5 [facility] (ATROVENT) 2-17 mL 4 ity of 0.02 % 00:00: (four) [place] nebulizer 00 times Medical solution daily. Branch levalbutero 2013-09 Yes .31mg Inhale Uni vers l (XOPENEX) 2-17 0.31 mg 3 ity of 0.31 mg/3 00:00: (three) [place] mL 00 times Medical nebulizer daily. Branch solution aspirin 81 2013-09 Yes 81mg Take 1 Tab U nivers mg chewable 2-17 by mouth ity of tablet 00:00: daily. [place] [facility] ipratropium 2013-09 Yes .5mg Inhale 2.5 [facility] (ATROVENT) 2-17 mL 4 ity of 0.02 % 00:00: (four) [place] nebulizer 00 times Medical solution daily. Branch levalbutero 2013-09 Yes .31mg Inhale Uni vers l (XOPENEX) 2-17 0.31 mg 3 ity of 0.31 mg/3 00:00: (three) [place] mL 00 times Medical nebulizer daily. Branch solution aspirin 81 2013-09 Yes 81mg Take 1 Tab U nivers mg chewable 2-17 by mouth ity of tablet 00:00: daily. [place] [facility] ipratropium 2013-09 Yes .5mg Inhale 2.5 [facility] (ATROVENT) 2-17 mL 4 ity of 0.02 % 00:00: (four) [place] nebulizer 00 times Medical solution daily. Branch levalbutero 2013-09 Yes .31mg Inhale Uni vers l (XOPENEX) 2-17 0.31 mg 3 ity of 0.31 mg/3 00:00: (three) [place] mL 00 times Medical nebulizer daily. Branch solution aspirin 81 2013-09 Yes 81mg Take 1 Tab U nivers mg chewable 2-17 by mouth ity of tablet 00:00: daily. [place] [facility] ipratropium 2013-09 Yes .5mg Inhale 2.5 [facility] (ATROVENT) 2-17 mL 4 ity of 0.02 % 00:00: (four) [place] nebulizer 00 times Medical solution daily. Branch levalbutero 2013-09 Yes .31mg Inhale [facility] vers l (XOPENEX) 2-17 0.31 mg 3 ity of 0.31 mg/3 00:00: (three) [place] mL 00 times Medical nebulizer daily. Branch solution aspirin 81 2013-09 Yes 81mg Take 1 Tab U nivers mg chewable 2-17 by mouth ity of tablet 00:00: daily. [place] [id number] Medical Branch ipratropium 2013-09 Yes .5mg Inhale 2.5 [facility] (ATROVENT) 2-17 mL 4 ity of 0.02 % 00:00: (four) [place] nebulizer 00 times Medical solution daily. Branch levalbutero 2013-09 Yes .31mg Inhale Uni vers l (XOPENEX) 2-17 0.31 mg 3 ity of 0.31 mg/3 00:00: (three) [place] mL 00 times Medical nebulizer daily. Branch solution Immunizations Ordered Filled Immunization Date Status Comments [facility] e Immunization Name Name SARS-COV-2 COVID-19 2020-11-23 Completed Unive rsity of MODERNA VACCINE 00:00:00 [facility] [place] [facility] SARS-COV-2 COVID-19 2020-11-23 Completed Unive rsity of MODERNA VACCINE 00:00:00 [facility] [place] [facility] SARS-COV-2 COVID-19 2020-11-23 Completed Unive rsity of MODERNA VACCINE 00:00:00 [facility] [place] [facility] SARS-COV-2 COVID-19 2020-11-23 Completed Unive rsity of MODERNA VACCINE 00:00:00 [facility] [place] [facility] SARS-COV-2 COVID-19 2020-11-23 Completed Unive rsity of MODERNA VACCINE 00:00:00 [facility] [place] [facility] SARS-COV-2 COVID-19 2020-11-23 Completed Unive rsity of MODERNA VACCINE 00:00:00 [facility] [place] [facility] SARS-COV-2 COVID-19 2020-11-23 Completed Unive rsity of MODERNA VACCINE 00:00:00 [facility] [place] [facility] SARS-COV-2 COVID-19 2020-11-23 Completed Unive rsity of MODERNA VACCINE 00:00:00 [place] [facility] SARS-COV-2 COVID-19 2020-11-23 Completed Unive rsity of MODERNA VACCINE 00:00:00 [place] [facility] SARS-COV-2 COVID-19 2020-11-23 Completed Unive rsity of MODERNA VACCINE 00:00:00 [place] [facility] SARS-COV-2 COVID-19 2020-11-23 Completed Unive rsity of MODERNA VACCINE 00:00:00 [place] [facility] SARS-COV-2 COVID-19 2020-11-23 Completed Unive rsity of MODERNA VACCINE 00:00:00 [place] [facility] SARS-COV-2 COVID-19 2020-11-23 Completed Unive rsity of MODERNA VACCINE 00:00:00 [place] [facility] Branch SARS-COV-2 COVID-19 2020-11-23 Completed Unive rsity of MODERNA VACCINE 00:00:00 [place] [facility] Branch SARS-COV-2 COVID-19 2020-11-23 Completed Unive rsity of MODERNA VACCINE 00:00:00 [place] [facility] SARS-COV-2 COVID-19 2020-11-23 Completed Unive rsity of MODERNA VACCINE 00:00:00 [place] [facility] SARS-COV-2 COVID-19 2020-11-23 Completed Unive rsity of MODERNA VACCINE 00:00:00 [place] [facility] SARS-COV-2 COVID-19 2020-11-23 Completed Unive rsity of MODERNA VACCINE 00:00:00 [place] [facility] SARS-COV-2 COVID-19 2020-11-23 Completed Unive rsity of MODERNA VACCINE 00:00:00 [place] [facility] SARS-COV-2 COVID-19 2020-11-23 Completed Unive rsity of MODERNA VACCINE 00:00:00 [place] [facility] SARS-COV-2 COVID-19 2020-10-26 Completed Unive rsity of MODERNA VACCINE 00:00:00 [place] [facility] SARS-COV-2 COVID-19 2020-10-26 Completed Unive rsity of MODERNA VACCINE 00:00:00 [place] [facility] SARS-COV-2 COVID-19 2020-10-26 Completed Unive rsity of MODERNA VACCINE 00:00:00 [place] [facility] SARS-COV-2 COVID-19 2020-10-26 Completed Unive rsity of MODERNA VACCINE 00:00:00 [place] [facility] SARS-COV-2 COVID-19 2020-10-26 Completed Unive rsity of MODERNA VACCINE 00:00:00 [place] [facility] SARS-COV-2 COVID-19 2020-10-26 Completed Unive rsity of MODERNA VACCINE 00:00:00 [place] [facility] SARS-COV-2 COVID-19 2020-10-26 Completed Unive rsity of MODERNA VACCINE 00:00:00 [place] [facility] SARS-COV-2 COVID-19 2020-10-26 Completed Unive rsity of MODERNA VACCINE 00:00:00 [place] [facility] SARS-COV-2 COVID-19 2020-10-26 Completed Unive rsity of MODERNA VACCINE 00:00:00 [place] [facility] SARS-COV-2 COVID-19 2020-10-26 Completed Unive rsity of MODERNA VACCINE 00:00:00 [place] [facility] Branch SARS-COV-2 COVID-19 2020-10-26 Completed Unive rsity of MODERNA VACCINE 00:00:00 [place] [facility] SARS-COV-2 COVID-19 2020-10-26 Completed Unive rsity of MODERNA VACCINE 00:00:00 [place] [facility] SARS-COV-2 COVID-19 2020-10-26 Completed Unive rsity of MODERNA VACCINE 00:00:00 [place] [facility] SARS-COV-2 COVID-19 2020-10-26 Completed Unive rsity of MODERNA VACCINE 00:00:00 [place] [facility] Branch SARS-COV-2 COVID-19 2020-10-26 Completed Unive rsity of MODERNA VACCINE 00:00:00 [place] [facility] Branch SARS-COV-2 COVID-19 2020-10-26 Completed Unive rsity of MODERNA VACCINE 00:00:00 [place] [facility] Branch SARS-COV-2 COVID-19 2020-10-26 Completed Unive rsity of MODERNA VACCINE 00:00:00 [place] [facility] Branch SARS-COV-2 COVID-19 2020-10-26 Completed Unive rsity of MODERNA VACCINE 00:00:00 [facility] Branch SARS-COV-2 COVID-19 2020-10-26 Completed Unive rsity of MODERNA VACCINE 00:00:00 [facility] Branch SARS-COV-2 COVID-19 2020-10-26 Completed Unive rsity of MODERNA VACCINE 00:00:00 [facility] Branch Td 2019-02-16 Completed University of 00:00:00 [facility] Td 2019-02-16 Completed University of 00:00:00 [facility] Td 2019-02-16 Completed University of 00:00:00 [facility] Td 2019-02-16 Completed University of 00:00:00 [facility] Td 2019-02-16 Completed University of 00:00:00 [facility] Td 2019-02-16 Completed University of 00:00:00 [facility] Td 2019-02-16 Completed University of 00:00:00 [facility] Td 2019-02-16 Completed University of 00:00:00 [facility] Td 2019-02-16 Completed University of 00:00:00 [facility] Td 2019-02-16 Completed University of 00:00:00 [facility] Td 2019-02-16 Completed University of 00:00:00 [facility] Td 2019-02-16 Completed University of 00:00:00 [facility] Td 2019-02-16 Completed University of 00:00:00 [facility] Td 2019-02-16 Completed [facility] 00:[facility]00 [facility] [facility] Td 2019-02-16 Completed [facility] of 00:00:00 [facility] Td 2019-02-16 Completed University of 00:00:00 [facility] Td 2019-02-16 Completed University of 00:00:00 [facility] Td 2019-02-16 Completed University of 00:00:00 [facility] Td 2019-02-16 Completed University of 00:00:00 [facility] Td 2019-02-16 Completed University of 00:00:00 [facility] Td 2019-02-16 Completed University of 00:00:00 [facility] Td 2019-02-16 Completed University of 00:00:00 [facility] Td 2019-02-16 Completed University of 00:00:00 [facility] Pneumococcal 2014-09-05 Completed University o f Polysaccharide, 00:00:00 [place] [facility] PPSV23 (PNEUMOVAX) Branch Influenza Virus 2014-09-05 Completed Universit y of Vaccine Quad IM 3+ 00:00:00 [facility] Pneumococcal 2014-09-05 Completed University o f Polysaccharide, 00:00:00 [place] [facility] PPSV23 (PNEUMOVAX) Branch Influenza Virus 2014-09-05 Completed Universit y of Vaccine Quad IM 3+ 00:00:00 [facility] Pneumococcal 2014-09-05 Completed University o f Polysaccharide, 00:00:00 [place] [facility] PPSV23 (PNEUMOVAX) Branch Influenza Virus 2014-09-05 Completed Universit y of Vaccine Quad IM 3+ 00:00:00 [facility] Pneumococcal 2014-09-05 Completed University o f Polysaccharide, 00:00:00 [place] [facility] PPSV23 (PNEUMOVAX) Branch Influenza Virus 2014-09-05 Completed Universit y of Vaccine Quad IM 3+ 00:00:00 [facility] Pneumococcal 2014-09-05 Completed University o f Polysaccharide, 00:00:00 [place] [facility] PPSV23 (PNEUMOVAX) Branch Influenza Virus 2014-09-05 Completed Universit y of Vaccine Quad IM 3+ 00:00:00 [facility] Pneumococcal 2014-09-05 Completed University o f Polysaccharide, 00:00:00 [place] [facility] PPSV23 (PNEUMOVAX) Branch Influenza Virus 2014-09-05 Completed Universit y of Vaccine Quad IM 3+ 00:00:00 [facility] Pneumococcal 2014-09-05 Completed University o f Polysaccharide, 00:00:00 [place] [facility] PPSV23 (PNEUMOVAX) Branch Influenza Virus 2014-09-05 Completed Universit y of Vaccine Quad IM 3+ 00:00:00 [facility] Pneumococcal 2014-09-05 Completed University o f Polysaccharide, 00:00:00 [place] [facility] PPSV23 (PNEUMOVAX) Branch Influenza Virus 2014-09-05 Completed Universit y of Vaccine Quad IM 3+ 00:00:00 [facility] Pneumococcal 2014-09-05 Completed University o f Polysaccharide, 00:00:00 [place] [facility] PPSV23 (PNEUMOVAX) Branch Influenza Virus 2014-09-05 Completed Universit y of Vaccine Quad IM 3+ 00:00:00 [facility] Pneumococcal 2014-09-05 Completed University o f Polysaccharide, 00:00:00 [place] [facility] PPSV23 (PNEUMOVAX) Branch Influenza Virus 2014-09-05 Completed Universit y of Vaccine Quad IM 3+ 00:00:00 [facility] Pneumococcal 2014-09-05 Completed University o f Polysaccharide, 00:00:00 [place] [facility] PPSV23 (PNEUMOVAX) Branch Influenza Virus 2014-09-05 Completed Universit y of Vaccine Quad IM 3+ 00:00:00 [facility] Pneumococcal 2014-09-05 Completed University o f Polysaccharide, 00:00:00 [place] [facility] PPSV23 (PNEUMOVAX) Branch Influenza Virus 2014-09-05 Completed Universit y of Vaccine Quad IM 3+ 00:00:00 [facility] Pneumococcal 2014-09-05 Completed University o f Polysaccharide, 00:00:00 [place] [facility] PPSV23 (PNEUMOVAX) Branch Influenza Virus 2014-09-05 Completed Universit y of Vaccine Quad IM 3+ 00:00:00 [facility] Pneumococcal 2014-09-05 Completed University o f Polysaccharide, 00:00:00 [place] [facility] PPSV23 (PNEUMOVAX) Branch Influenza Virus 2014-09-05 Completed Universit y of Vaccine Quad IM 3+ 00:00:00 [facility] Pneumococcal 2014-09-05 Completed University o f Polysaccharide, 00:00:00 [place] [facility] PPSV23 (PNEUMOVAX) Branch Influenza Virus 2014-09-05 Completed Universit y of Vaccine Quad IM 3+ 00:00:00 [facility] Pneumococcal 2014-09-05 Completed University o f Polysaccharide, 00:00:00 [place] [facility] PPSV23 (PNEUMOVAX) Branch Influenza Virus 2014-09-05 Completed Universit y of Vaccine Quad IM 3+ 00:00:00 [facility] Pneumococcal 2014-09-05 Completed University o f Polysaccharide, 00:00:00 [place] [facility] PPSV23 (PNEUMOVAX) Branch Influenza Virus 2014-09-05 Completed Universit y of Vaccine Quad IM 3+ 00:00:00 [facility] Pneumococcal 2014-09-05 Completed University o f Polysaccharide, 00:00:00 [place] [facility] PPSV23 (PNEUMOVAX) Branch Influenza Virus 2014-09-05 Completed Universit y of Vaccine Quad IM 3+ 00:00:00 [facility] Pneumococcal 2014-09-05 Completed University o f Polysaccharide, 00:00:00 [place] [facility] PPSV23 (PNEUMOVAX) Branch Influenza Virus 2014-09-05 Completed Universit y of Vaccine Quad IM 3+ 00:00:00 [facility] Pneumococcal 2014-09-05 Completed University o f Polysaccharide, 00:00:00 [place] [facility] PPSV23 (PNEUMOVAX) Branch Influenza Virus 2014-09-05 Completed Universit y of Vaccine Quad IM 3+ 00:00:00 [facility] Pneumococcal 2014-09-05 Completed University o f Polysaccharide, 00:00:00 [place] [facility] PPSV23 (PNEUMOVAX) Branch Influenza Virus 2014-09-05 Completed Universit y of Vaccine Quad IM 3+ 00:00:00 [facility] Pneumococcal 2014-09-05 Completed University o f Polysaccharide, 00:00:00 [place] [facility] PPSV23 (PNEUMOVAX) Branch Influenza Virus 2014-09-05 Completed Universit y of Vaccine Quad IM 3+ 00:00:00 [facility] Pneumococcal 2014-09-05 Completed University o f Polysaccharide, 00:00:00 [place] [facility] PPSV23 (PNEUMOVAX) Branch Influenza Virus 2014-09-05 Completed Universit y of Vaccine Quad IM 3+ 00:00:00 [facility] Vital Signs Vital Name Observation Time Observation Value Comments Source Systolic blood 2020-12-29 15:24:00 96 mm[Hg] Univer sity of pressure [facility] Diastolic blood 2020-12-29 15:24:00 66 mm[Hg] Unive [facility] Heart rate 2020-12-29 15:24:00 71 /min [facility] Body temperature 2020-12-29 15:24:00 36.33 [facility] 2020-12-29 15:24:00 72.576 kg [facility] BMI 2020-12-29 15:24:00 22.96 kg/m2 [facility] Oxygen saturation in 2020-12-29 15:24:00 95 /min [facility] Arterial blood by [facility] Pulse oximetry Branch Systolic blood 2020-12-18 19:07:00 117 mm[Hg] Univer sity of pressure [facility] Diastolic blood 2020-12-18 19:07:00 77 mm[Hg] Unive rsity of pressure [facility] Heart rate 2020-12-18 19:07:00 77 /min [facility]i [facility] [place] [facility] [place] Body temperature 2020-12-18 19:07:00 36.22 Tia Univ ersity [facility] [place] [facility] Respiratory rate 2020-12-18 19:07:00 18 /min Univ ersity [facility] [place] [facility] Body height 2020-12-18 19:07:00 177.8 cm [facility] [place] [facility] Body weight 2020-12-18 19:07:00 73.211 kg [facility] [place] [facility] BMI 2020-12-18 19:07:00 23.16 kg/m2 [facility] [place] [facility] Systolic blood 2020-12-12 18:00:00 109 mm[Hg] Univer sity of pressure [facility] Diastolic blood 2020-12-12 18:00:00 74 mm[Hg] Unive rsity of pressure [facility] Heart rate 2020-12-12 18:00:00 78 /min [facility] [place] [facility] Respiratory rate 2020-12-12 18:00:00 20 /min Univ ersity of [facility] Oxygen saturation in 2020-12-12 18:00:00 96 /min University of Arterial blood by [facility] Pulse oximetry [place] Body temperature 2020-12-12 16:33:00 37.28 Tia Univ ersity [facility] [place] [facility] [place] Body height 2020-12-12 16:33:00 177.8 cm [facility] [place] [facility] [place] Body weight 2020-12-12 16:33:00 70.308 kg [facility] [place] [facility] BMI 2020-12-12 16:33:00 22.24 kg/m2 [facility] [place] [facility] Systolic blood 2020-12-08 18:55:00 125 mm[Hg] Univer sity of pressure [facility] Diastolic blood 2020-12-08 18:55:00 82 mm[Hg] Unive rsity of pressure [facility] Heart rate 2020-12-08 18:55:00 75 /min Universi ty of [facility] Body temperature 2020-12-08 18:55:00 36.56 Tia Univ [facility]ity of [facility] Respiratory rate 2020-12-08 18:55:00 16 /min Univ ersity of [place] [facility] Body height 2020-12-08 18:55:00 177.8 cm [facility] [place] [facility] Body weight 2020-12-08 18:55:00 73.12 kg [facility] [place] [facility] BMI 2020-12-08 18:55:00 23.13 kg/m2 [facility] [place] [facility] Systolic blood 2019-05-04 04:21:00 127 mm[Hg] Univer sity of pressure [facility] Diastolic blood 2019-05-04 04:21:00 86 mm[Hg] Unive rsity of pressure [facility] Heart rate 2019-05-04 04:21:00 99 /min [facility] [place] [facility] Respiratory rate 2019-05-04 04:21:00 26 /min Univ ersity [facility] [place] [facility] Body height 2019-05-04 04:21:00 177.8 cm [facility] [place] [facility] Body weight 2019-05-04 04:21:00 72.576 kg [facility] [place] [facility] BMI 2019-05-04 04:21:00 22.96 kg/m2 [facility] [place] [facility] Oxygen saturation in 2019-05-04 04:21:00 99 /min University of Arterial blood by [email or web address] Pulse oximetry Branch Systolic blood 2019-05-04 04:21:00 127 mm[Hg] Univer sity of pressure [facility] Diastolic blood 2019-05-04 04:21:00 86 mm[Hg] Unive rsity of pressure [facility] Heart rate 2019-05-04 04:21:00 99 /min [facility] [place] [facility] Respiratory rate 2019-05-04 04:21:00 26 /min Univ ersity of [place] [facility] Body height 2019-05-04 04:21:00 177.8 cm [facility] [place] [facility] Body weight 2019-05-04 04:21:00 72.576 kg [facility] [place] [facility] BMI 2019-05-04 04:21:00 22.96 kg/m2 [facility] [place] [facility] Oxygen saturation in 2019-05-04 04:21:00 99 /min University of Arterial blood by [email or web address] Pulse oximetry Branch Procedures Procedure Date / Time Performing Clinician Source Performed ASSIGNMENT OF BENEFITS 2021-05-20 19:26:54 Doctor Unassigned, No [facility] POCT URINALYSIS AUTO 2020-12-18 19:04:00 Halima Ahn [facility] CT ABDOMEN PELVIS W 2020-12-12 17:25:03 Francisca Narayan [facility] BASIC METABOLIC PANEL 2020-12-12 16:47:00 Francisca Narayan [facility] (NA, K, CL, CO2, Medical Branch GLUCOSE, BUN, CREATININE, CA) CBC WITH DIFF 2020-12-12 16:47:00 Francisca Narayan [facility] URINALYSIS 2020-12-12 16:47:00 Francisca Narayan [facility] NOTICE OF PRIVACY 2020-12-12 16:28:57 Doctor Unassigned, No [facility] CONSENT/REFUSAL FOR 2020-12-12 16:28:23 Doctor Unassigned, No [facility] [place] [facility] POCT URINALYSIS AUTO 2020-12-08 18:56:00 Jeanette Milton [facility] CONSENT/REFUSAL FOR 2020-12-08 18:26:17 Doctor Unassigned, No [facility] ASSIGNMENT OF BENEFITS 2020-12-08 18:25:58 Doctor Unassigned, No [facility] AUTHORIZATION FOR 2020-02-20 05:01:00 Doctor Unassigned, No [facility] RELEASE OF [facility] NOTICE OF PRIVACY 2019-05-04 04:10:29 Doctor Unassigned, No [facility] CONSENT/REFUSAL FOR 2019-05-04 04:10:09 Doctor Unassigned, No [facility] [place] [facility] Encounters Start End Encounter Admission Attending Care Care Encounter Source Date/Time Date/Time Type Type Clinicians Facility Department ID 2021-07-19 Emergency [facility] [id number] Univers [facility] 2021-05-22 2021-05-22 Telephone Violeta CAMENG [id number] Univers 00:00:00 00:00:00 Jeanette Tabares [id number] [id number] [phone] [facility] [address] [facility] 2021-05-20 2021-05-20 Falsework Builder Anshu Maced[facility] Main RUST [id number] Univers 14:28:38 14:43:38 Visit Halima Ahn [id number] [id number] [phone] [facility] 2021-05-20 2021-05-20 Outpatient R [facility] [id number] Univers 14:30:00 14:30:00 [id number] ity [facility] 2021-05-20 2021-05-20 Outpatient R [facility] [id number] Univers 14:30:00 14:30:00 HALIMA ity [facility] 2021-05-20 2021-05-20 Orders Doctor ELDER [id number] Univers 00:00:00 00:00:00 Only Unassigned, ASHER [id number] ity of [place] [facility] [id number] [place] [phone] [address] 2021-05-20 2021-05-20 [facility] [id number] Univers 00:00:00 00:00:00 Halima Tabares [id number] [id number] [phone] [facility] [address] [facility] 2021-01-01 2021-01-01 Outpatient R [facility] [id number] Univers 13:30:00 13:30:00 HALIMA [id number] ity [facility] 2020-12-29 2020-12-29 [facility] [id number] Univers 10:12:45 11:07:51 Visit Halima Tabares [id number] [id number] [phone] [address] 2020-12-29 2020-12-29 [facility] [id number] Univers 10:15:00 10:15:00 [facility] [id number] [facility] 2020-12-29 2020-12-29 Outpatient R [facility] [id number] Univers 10:15:00 10:15:00 [facility] 2020-12-18 2020-12-18 [facility] [id number] Univers 13:36:17 14:58:35 Visit Rm, Adc Surg Spec Procedure Raysa 3 [id number] ity [facility] [id number] [phone] [address] 2020-12-18 2020-12-18 Outpatient [facility] [id number] Univers 14:00:00 14:00:00 [facility] [id number] [facility] 2020-12-18 2020-12-18 Outpatient R [facility] [id number] Univers 14:00:00 14:00:00 [facility] 2020-12-16 2020-12-16 [facility] [id number] Univers 00:00:00 00:00:00 JEANETTE [id number] [facility] 2020-12-16 2020-12-16 Outpatient [facility] [id number] Univers 00:00:00 00:00:00 [facility] 2020-12-16 2020-12-16 [facility] [id number] Univers 00:00:00 00:00:00 Jeanette Tabares [id number] [id number] [phone] [address] 2020-12-12 2020-12-12 Emergency [facility] [id number] Univers 11:36:00 13:42:00 Francisca Trina Tabares [id number] [id number] [phone] [facility] [address] [place] 2020-12-12 2020-12-12 Telephone [facility] [id number] Univers 00:00:00 00:00:00 Jeanette Tabares [id number] [id number] [phone] [place] dic[address] 2020-12-08 2020-12-08 Office [facility] 1.2.840.114 [id number] Univers 13:28:10 14:09:14 Visit Jeanette Tabares [id number] [id number] [phone] [place] dic[address] 2020-12-08 2020-12-08 Outpatient R [facility] [id number] Univers 13:30:00 13:30:00 JEANETTE judge [facility] 2020-12-08 2020-12-08 Orders Doctor ELDER [id number] [id number] Univers 00:00:00 00:00:00 Only Unassigned, ASHER [id number] ity of [place] [facility] [id number] [place] [phone] [facility] [address] [place] 2020-12-07 2020-12-07 Nurse ELDER Perez 1.2.840.114 [id number] Univers 00:00:00 00:00:00 Triage Herminia Chandler ASHER [id number] ity of HOSPITAL [id number] [place] [phone] [facility] 019 [place] 2020-06-19 2020-06-19 Outpatient Pepper, [facility]G [id number] [facility] 13:30:00 13:30:00 Tyrell [id number] [facility] 2020-02-20 2020-02-20 Orders Doctor ELDER 1.2.840.114 [id number] 00:00:00 00:00:00 Only Unassigned, ASHER [id number] [place] [facility] 4.2.7.2.686 [id number] [id number] 2020-02-20 2020-02-20 Orders Doctor ELDER [id number] Univers 00:00:00 00:00:00 Only Unassigned, ASHER [id number] ity of [place] [facility] [id number] [place] [phone] [address] 2019-08-28 2019-08-28 Emergency X MALDONADO RUST ERT [id number] Univers 08:25:33 11:54:00 HERMINIA deepa [facility] 2019-08-24 2019-08-24 Emergency X HONG RUST ERT [id number] Univers 01:43:17 03:52:00 JOEL judge [facility] 2019-05-03 2019-05-04 [facility] [id number] 23:28:18 00:27:00 Rameshmariela Tabares [id number] [place] [id number] [place] [phone] [facility] 2019-05-03 2019-05-04 Emergency [facility] [id number] Univers 23:28:18 00:27:00 Rameshmariela Tabares [id number] i ty of [place] [id number] [facility] [phone] [address] 2019-05-03 2019-05-03 Orders Doctor ELDER [id number] Univers 00:00:00 00:00:00 Only Unassigned, ASHER [id number] ity of [place] [facility] [id number] [place] [phone] [address] 2019-05-03 2019-05-03 Orders Doctor ELDER [id number] 00:00:00 00:00:00 Only Unassigned, ASHER [id number] [place] [facility] [id number] [phone] [id number] Results Test Description Test Time Test Comments Results Result Comments Source POCT URINALYSIS, INSTRUMENT 2020-12-18 19:05:00 Test Item Value Reference Range Interpretation Comme nts POCT U SP GRAV (test code = 3255) 1.020 mg/dl 1.005-1.025 POCT PH U (test code = 3254) 7.5 mg/dl 5-8 POCT U LEUK EST (test code = 3263) negative Negative - Negative POCT U NIT (test code = 3262) negative Negative - Negative POCT U PROT (test code = 3259) negative Negative - Negative POCT U GLU (test code = 3256) negative Negative - Negative POCT U KETONE (test code = 3258) negative Negative - Negative POCT U UROBILI (test code = 3260) 0.2 mg/dl 0.2-1 POCT U BILI (test code = 3261) negative Negative - Negative POCT U BLD (test code = 3257) small Negative - Negative POCT U COLOR (test code = 3266) yellow POCT U APPEAR (test code = 3267) clear [facility] URINALYSIS, [id number] 19:05:00 Test Item Value Reference Range Interpretation Comments POCT U SP GRAV (test code = 1.020 mg/dl 1.005-1.025 3255) POCT PH U (test code = 3254) 7.5 mg/dl 5-8 POCT U LEUK EST (test code = negative Negative - Negative 3263) POCT U NIT (test code = 3262) negative Negative - Negative POCT U PROT (test code = negative Negative - Negative 3259) POCT U GLU (test code = 3256) negative Negative - Negative POCT U KETONE (test code = negative Negative - Negative 3258) POCT U UROBILI (test code = 0.2 mg/dl 0.2-1 3260) POCT U BILI (test code = negative Negative - Negative 3261) POCT U BLD (test code = 3257) small Negative - Negative POCT U COLOR (test code = yellow 3266) POCT U APPEAR (test code = clear 3267) [facility] [id number] 19:05:00 Test Item Value Reference Range Interpretation Comments POCT U SP GRAV (test code = 1.020 mg/dl 1.005-1.025 3255) POCT PH U (test code = 3254) 7.5 mg/dl 5-8 POCT U LEUK EST (test code = negative Negative - Negative 3263) POCT U NIT (test code = 3262) negative Negative - Negative POCT U PROT (test code = negative Negative - Negative 3259) POCT U GLU (test code = 3256) negative Negative - Negative POCT U KETONE (test code = negative Negative - Negative 3258) POCT U UROBILI (test code = 0.2 mg/dl 0.2-1 3260) POCT U BILI (test code = negative Negative - Negative 3261) POCT U BLD (test code = 3257) small Negative - Negative POCT U COLOR (test code = yellow 3266) POCT U APPEAR (test code = clear 3267) [facility] [id number] 17:53:531. ?No hydronephrosis or nephrolithiasis. 2. ?Mild circumferential thickening of urinary bladder islikely related topartial decompression. Consider clinical correlation with UA. 3. ?Prostatomegaly. 4. ?Partially visualized small right hydrocele. 5. ?Additional findings as above.CT ABDOMEN AND PELVIS WITH CONTRAST REASON FOR STUDY: Hematuria, unknown cause COMPARISON: 08/27/2019 TECHNIQUE: Multidetector axial CT images from lung bases through proximalthighs after IV administration of nonionic iodinated contrast material.Coronal and sagittal MPR images also generated. INTRAVENOUS CONTRAST ADMINISTRATION (mL Omnipaque 350): 120. Total DLP: 279 mGy*cm FINDINGS: Lower chest: Centrilobular emphysematous changes. Partially visualizedright ventricular ICD lead. ABDOMEN AND PELVISLiver: Mild diffuse hepatic hypoattenuation can be seen with diffusesteatosis. No focal hepatic lesions identified. Normal hepatic surfacecontour. Biliary Tract/GB: Partially decompressed gallbladder without radiopaquecholelithiasis. No biliary ductal dilatation. Spleen: No splenomegaly. Subcentimeter splenule along the lateral marginthe spleen. Pancreas: Mild pancreatic atrophy. No pancreatic ductal dilatation. Adrenals: Within normal limits. Kidneys: Symmetric renal enhancement. Subcentimeter hypoattenuating lesionwithinposterior right upper renal pole is too small to characterize. Nohydronephrosis or nephrolithiasis. Bowel: Small sliding-type hiatal hernia with mild circumferential distalesophageal thickening (2:16).[place]metto density within the distal stomach andat the hepatic flexure likely represent ingested capsules. Peritoneum: No pneumoperitoneum or free fluid. Vasculature: Circumaortic configuration of the leftrenal vein. Patent mainportal and splenic veins. Mild atherosclerotic calcifications and softplaque throughout the infrarenal abdominal aorta. Lymph Nodes: No lymphadenopathy. ? Pelvic organs: Urinary bladder is mildly thickened likely related topartial decompression. Enlarged prostate measures 5.2 cm in transversedimension at the level femoral necks. Partially visualized small righthydrocele. Abdominal/Pelvic Wall: Tiny fat-containing umbilical hernia measuring lessthan 1cm in transverse dimension at the level of the fascial defect. BONES: No acute or suspicious osseousabnormality.. [facility], Radiant Results Inft User - 12/12/2020 12:55 PM CDTCT ABDOMEN AND PELVIS WITH CONTRASTREASON FOR STUDY: Hematuria, unknown cause COMPARISON: 08/27/2019TECHNIQUE: Multidetector axial CT images from lung bases through proximalthighs after IV administration of nonionic iodinated contrast material.Coronal and sagittal MPR images also generated.INTRAVENOUS CONTRAST ADMINISTRATION (mL Omnipaque 350): 120.Total DLP: 279 mGy*cmFINDINGS: Lower chest: Centrilobular emphysematous changes. Partially visualizedright ventricular ICD lead.ABDOMEN AND PELVISLiver: Mild diffuse hepatic hypoattenuation can be seen with diffusesteatosis. No focal hepatic lesions identified. Normal hepatic surfacecontour.Biliary Tract/GB: Partially decompressed gallbladder without radiopaquecholelithiasis. No biliary ductal dilatation.Spleen: No splenomegaly. Subcentimeter splenule along the lateral marginthe spleen.Pancreas: Mild pancreatic atrophy. No pancreatic ductal dilatation.Adrenals: Within normal limits.Kidneys: Symmetric renal enhancement. Subcentimeter hypoattenuating lesionwithin posterior right upper renal pole is too small to characterize. Nohydronephrosis or nephrolithiasis.Bowel: Small sliding-type hiatal hernia with mild circumferential distalesophageal thickening (2:16). [place]met[place] density within the distal stomach andat the hepatic flexure likely represent ingested capsules.Peritoneum: No pneumoperitoneum or free fluid.Vasculature: Circumaortic configuration of the left renal vein. Patent mainportal and splenic veins. Mild atherosclerotic calcifications and softplaque throughout the infrarenal abdominal aorta.Lymph Nodes: No lymphadenopathy. Pelvic organs: Urinary bladder is mildly thickened likely related topartial decompression. Enlarged prostate measures 5.2 cm in transversedimension at the level femoral necks. Partially visualized small righthydrocele.Abdominal/Pelvic Wall: Tiny fat-containing umbilical hernia measuring lessthan 1 cm in transverse dimension at the level of the fascial defect.BONES: No acute or suspicious osseous abnormality..IMPRESSION1.No hydronephrosis or nephrolithiasis. 2. Mild circumferential thickening of urinary bladder is likely related topartial decompression. Consider clinical correlation with UA.3. Prostatomegaly.4. Partially visualized small right hydrocele.5. Additional findings as above. [facility]38 Test Item Value Reference Range Interpretation Comments APPEARANCE (test code = Cloudy Clear A 3810055476) COLOR (test code = Red Yellow A 8020187202) PH (test code = 4.8-8.0 0360576252) SP GRAVITY (test code = 1.003-1.030 7254481263) GLU U QUAL (test code = 50 mg/dL Normal A 0246949305) BLOOD (test code = 3+ Negative A 5528753666) KETONES (test code = Negative Negative 2688132639) PROTEIN (test code = 100 mg/dL Negative A 2887-8) UROBILIN (test code = Normal Normal 1059331273) BILIRUBIN (test code = Negative Negative 1916115342) NITRITE (test code = Negative Negative 0636399299) LEUK DIANELYS (test code = Negative Negative 8675491489) RBC/HPF (test code = >182 See_Comment H [Autom ated message] 8901921945) The system [employer] generated this result transmit anirudh reference range : 0 - 3 HPF. The refe rence range was not u sed to interpret th is result as normal/abnormal . WBC/HPF (test code = >182 See_Comment H [Autom ated message] 5499002226) The system [employer] generated this result transmit anirudh reference range : 0 - 5 HPF. The refe rence range was not u sed to interpret th is result as normal/abnormal . BACTERIA (test code = Moderate Negative A 3135388206) WBC CLUMPS (test code = See_Comment H [Au tomated message] 3226202261) The system [employer] generated this result transmit anirudh reference range : <=1 HPF. The refere nce range was not u sed to interpret th is result as normal/abnormal . Lab Interpretation (test Abnormal code = 58348-4) [facility] Metabolic Panel (NA, K, CL, CO2, GLUCOSE, BUN, CREATININE, CA)2020-12-12 17:13:57 Test Item Value Reference Range Interpretation Comments NA (test code = 140 mmol/L 135-145 3899579250) K (test code = 4.5 mmol/L 3.5-5.0 4992340482) CL (test code = 100 mmol/L 98-108 4659552953) CO2 TOTAL (test code = 35 mmol/L 23-31 H 4312371332) AGAP (test code = 2-16 3951545856) BUN (test code = 25 mg/dL 7-23 H 3509869336) GLUCOSE (test code = 114 mg/dL 70-110 H 8322677372) CREATININE (test code = 1.18 mg/dL 0.60-1.25 7767391853) CALCIUM (test code = 9.0 mg/dL 8.6-10.6 3840886817) eGFR Calculation mL/min/1.73m2 (Non-) (test code = 0066825285) eGFR Calculation mL/min/1.73m2 () (test code = 6091306572) OMAYRA (test code = OMAYRA) Association of Glomerular Filtration Rate (GFR) and Staging of Kidney Disease* + --+ --+ ------+| GFR (mL/min/1.73 m2) ?| With Kidney Damage ?| ?Without Kidney Damage+ --------+ --------+ +| ?>90 ?| ?Stage one ?| ? Normal ?+ ---+ ---+ -------+| ?60-89 ?| ?Stage two ?| ? Decreased GFR ? + --+ --+ ------+| ?30-59 ?| ?Stage three ?| ? Stage three ? + --+ --+ ------+| ?15-29 ?| ?Stage four ? | ? Stage four ?+ ---+ ---+ -------+| ?<15 (or dialysis) ? ?| ?Stage five ? | ? Stage five ?+ ---+ ---+ -------+ *Each stage assumes the associated GFR level has been in effect for at least three months. ?Stages 1 to 5, with or without kidney disease, indicate chronic kidney disease. Notes: Determination of stages one and two (with eGFR >59mL/min/1.73 m2) requires estimation of kidney damage for at least three months as defined by structural or functional abnormalities of the kidney, manifested by either:Pathological abnormalities or Markers of kidney damage (including abnormalities in the composition of the blood or urine or abnormalities in imaging tests). Lab Interpretation Abnormal (test code = 00037-2) [facility] with [id number] 16:56:10 Test Item Value Reference Range Interpretation Comments WBC (test code = See_Comment [Automated 8090-2) message] The sy stem which generated this result transmitted reference range : 4.20 - 10.70 10*3/?L. The reference range was not used to interpret this result as normal/abnormal . RBC (test code = See_Comment [Automated 449-8) message] The sy stem which generated this result transmitted reference range : 4.26 - 5.52 10*6/?L. The reference range was not used to interpret this result as normal/abnormal . HGB (test code = 15.2 g/dL 12.2-16.4 718-7) HCT (test code = 46.3 % 38.4-49.3 4544-3) MCV (test code = 96.9 fL 81.7-95.6 H 787-2) MCH (test code = 31.8 pg 26.1-32.7 785-6) MCHC (test code = 32.8 g/dL 31.2-35.0 786-4) RDW-SD (test code = 42.9 fL 38.5-51.6 67553-8) RDW-CV (test code = 11.9 % 12.1-15.4 L 788-0) PLT (test code = See_Comment [Automated 777-3) message] The sy stem which generated this result transmitted reference range : 150 - 328 10*3/ ?L. The reference r pasquale was not used to interpret this result as normal/abnormal . MPV (test code = 10.8 fL 9.8-13.0 80177-1) NRBC/100 WBC (test See_Comment [Automat ed code = 7415824918) message] The system which generated this result transmitted reference range : 0.0 - 10.0 /100 WBCs. The refer ence range was not u sed to interpret th is result as normal/abnormal . NRBC x10^3 (test code <0.01 See_Comment [Auto mated = 7919896401) message] The s ystem which generated this result transmitted reference range : 10*3/?L. The reference range was not used to interpret this result as normal/abnormal . GRAN MAT (NEUT) % 63.5 % (test code = 770-8) IMM GRAN % (test code 0.40 % = 0628129859) LYMPH % (test code = 23.9 % 736-9) MONO % (test code = 6.7 % 5905-5) EOS % (test code = 4.3 % 713-8) BASO % (test code = 1.2 % 706-2) GRAN MAT x10^3(ANC) 4.27 10*3/uL 1.99-6.95 (test code = 4862979922) IMM GRAN x10^3 (test 0.03 10*3/uL 0.00-0.06 code = 6886927107) LYMPH x10^3 (test code 1.61 10*3/uL 1.09-3.23 = 731-0) MONO x10^3 (test code 0.45 10*3/uL 0.36-1.02 = 742-7) EOS x10^3 (test code = 0.29 10*3/uL 0.06-0.53 711-2) BASO x10^3 (test code 0.08 10*3/uL 0.01-0.09 = 704-7) Lab Interpretation Abnormal (test code = 56999-5) [facility] URINALYSIS, [id number] 18:56:00 Test Item Value Reference Range Interpretation Comments POCT U SP GRAV (test code = 1.030 mg/dl 1.005-1.025 A 3255) POCT PH U (test code = 3254) 5.5 mg/dl 5-8 POCT U LEUK EST (test code = Negative Negative - Negative 3263) POCT U NIT (test code = 3262) Negative Negative - Negative POCT U PROT (test code = Negative - Negative 3259) POCT U GLU (test code = 3256) Negative Negative - Negative POCT U KETONE (test code = Negative Negative - Negative 3258) POCT U UROBILI (test code = 0.2 mg/dl 0.2-1 3260) POCT U BILI (test code = Negative Negative - Negative 3261) POCT U BLD (test code = 3257) Large Negative - Negative POCT U COLOR (test code = brown 3266) POCT U APPEAR (test code = turbid 3267) Lab Interpretation (test code Abnormal = 27905-2) [facility] [id number] 18:56:00 Test Item Value Reference Range Interpretation Comments POCT U SP GRAV (test code = 1.030 mg/dl 1.005-1.025 A 3255) POCT PH U (test code = 3254) 5.5 mg/dl 5-8 POCT U LEUK EST (test code = Negative Negative - Negative 3263) POCT U NIT (test code = 3262) Negative Negative - Negative POCT U PROT (test code = Negative - Negative 3259) POCT U GLU (test code = 3256) Negative Negative - Negative POCT U KETONE (test code = Negative Negative - Negative 3258) POCT U UROBILI (test code = 0.2 mg/dl 0.2-1 3260) POCT U BILI (test code = Negative Negative - Negative 3261) POCT U BLD (test code = 3257) Large Negative - Negative POCT U COLOR (test code = brown 3266) POCT U APPEAR (test code = turbid 3267) Lab Interpretation (test code Abnormal = 69526-7) [facility]ST [id number] 16:22:00 Patient Name: THIERRY OSUNA Unit No: [id number] EXAMS: CPT CODE: [id number] XR CHEST 1V 04095 EXAMINATION: - XR CHEST 1V. LOCATION: B2. HISTORY: S/P ICD. COMPARISON: None. TECHNIQUE: Single AP view of the chest wasobtained. FINDINGS: The right lung apex is excluded from the tktom-sd-raha. The heart is normal in size. Left AICD device is present. The lungs are clear. No acute osseous abnormality is identified. IMPRESSION: The right lung apex isexcluded from the wzctu-of-ehpa. No acute cardiopulmonary abnormality is identified. at 1622 Reportedand signed by: Latanya Marshall MD CC: Tyrell Mckeon Technologist: JOSELYN Mathews, RT(R) Transcrpt Date/Tm/Trnsp: 06/19/2020 (1622) t.SDR.PR7 Orig Print D/T: S: 06/19/2020 (0285) [facility] NAME: THIERRY OSUNA [address] PHYS: [place] [address] : 1960 AGE: 59 SEX: M LOC: [id number] A PHONE #: [phone] EXAM DATE: 06/19/2020 STATUS: ADM IN FAX #: [phone] RADIOLOGY NO: PAGE 1 Signed ReportBASIC METABOLIC [id number] 13:17:00 Test Item Value Reference Range Interpretation Comments SODIUM (test code = 140 MMOL/L 137-145 N NA) POTASSIUM (test code = 4.6 MMOL/L 3.5-5.1 N K) CHLORIDE (test code = 99 MMOL/L 98-107 N CL) CARBON DIOXIDE (test 33 MMOL/L 22-30 H code = CO2) ANION GAP (test code = 13 MMOL/L 14-24 L GAP) GLUCOSE (test code = 78 MG/DL 74-106 N GLU) BLOOD UREA NITROGEN 18 MG/DL 9-20 N (test code = BUN) GLOMERULAR FILTRATION > 60 Report ing units: RATE (test code = GFR) ml/mi n/1.73 m2 (Modified MDRD Formula)Referen ce Range: > or = 6 0 ml/min/1.73 m2 CREATININE (test code 1.10 MG/DL 0.66-1.25 N = CREAT) CALCIUM (test code = MG/DL 8.7-9.7 CA) Comments to Culvert Installer: NURSE WILL BRING SPECIMEN TO LABIs this a LINE draw? N [id number] 13:17:00 Test Item Value Reference Range Interpretation Comments MAGNESIUM (test code = MAG) MG/DL 1.6-2.3 Comments to Culvert Installer: NURSE WILL BRING SPECIMEN TO LABIs this a LINE draw? N BASIC METABOLIC [id number] 13:17:00 Test Item Value Reference Range Interpretation Comments SODIUM (test code = 140 MMOL/L 137-145 N NA) POTASSIUM (test code = 4.6 MMOL/L 3.5-5.1 N K) CHLORIDE (test code = 99 MMOL/L 98-107 N CL) CARBON DIOXIDE (test 33 MMOL/L 22-30 H code = CO2) ANION GAP (test code = 13 MMOL/L 14-24 L GAP) GLUCOSE (test code = 78 MG/DL 74-106 N GLU) BLOOD UREA NITROGEN 18 MG/DL 9-20 N (test code = BUN) GLOMERULAR FILTRATION > 60 Report ing units: RATE (test code = GFR) ml/mi n/1.73 m2 (Modified MDRD Formula)Referen ce Range: > or = 6 0 ml/min/1.73 m2 CREATININE (test code 1.10 MG/DL 0.66-1.25 N = CREAT) CALCIUM (test code = 9.1 MG/DL 8.4-10.2 N CA) Comments to Culvert Installer: NURSE WILL BRING SPECIMEN TO LABIs this a LINE draw? N [id number] 13:17:00 Test Item Value Reference Range Interpretation Comments MAGNESIUM (test code = MAG) 2.2 MG/DL 1.6-2.3 N Comments to Culvert Installer: NURSE WILL BRING SPECIMEN TO LABIs this a LINE draw? N BASIC METABOLIC [id number] 13:16:00 Test Item Value Reference Range Interpretation Comments SODIUM (test code = 140 MMOL/L 137-145 N NA) POTASSIUM (test code = 4.6 MMOL/L 3.5-5.1 N K) CHLORIDE (test code = 99 MMOL/L 98-107 N CL) CARBON DIOXIDE (test MMOL/L 22-30 code = CO2) GLUCOSE (test code = MG/DL 74-106 GLU) BLOOD UREA NITROGEN MG/DL 9-20 (test code = BUN) GLOMERULAR FILTRATION > 60 Report ing units: RATE (test code = GFR) ml/mi n/1.73 m2 (Modified MDRD Formula)Referen ce Range: > or = 6 0 ml/min/1.73 m2 CREATININE (test code 1.10 MG/DL 0.66-1.25 N = CREAT) CALCIUM (test code = MG/DL 8.7-9.7 CA) Comments to Culvert Installer: NURSE WILL BRING SPECIMEN TO LABIs this a LINE draw? N [id number] 13:16:00 Test Item Value Reference Range Interpretation Comments MAGNESIUM (test code = MAG) MG/DL 1.6-2.3 Comments to Culvert Installer: NURSE WILL BRING SPECIMEN TO LABIs this a LINE draw? N BASIC METABOLIC [id number] 13:14:00 Test Item Value Reference Range Interpretation Comments SODIUM (test code = NA) 140 MMOL/L 137-145 N POTASSIUM (test code = K) 4.6 MMOL/L 3.5-5.1 N CHLORIDE (test code = CL) 99 MMOL/L 98-107 N CARBON DIOXIDE (test code = CO2) MMOL/L 22-30 GLUCOSE (test code = GLU) MG/DL 74-106 BLOOD UREA NITROGEN (test code = MG/DL 9-20 BUN) GLOMERULAR FILTRATION RATE (test code = GFR) CREATININE (test code = CREAT) MG/DL 0.66-1.25 CALCIUM (test code = CA) MG/DL 8.7-9.7 Comments to Culvert Installer: NURSE WILL BRING SPECIMEN TO LABIs this a LINE draw? N [id number] 13:14:00 Test Item Value Reference Range Interpretation Comments MAGNESIUM (test code = MAG) MG/DL 1.6-2.3 Comments to Culvert Installer: NURSE WILL BRING SPECIMEN TO LABIs this a LINE draw? N BASIC METABOLIC [id number] 13:13:00 Test Item Value Reference Range Interpretation Comments SODIUM (test code = NA) MMOL/L 137-145 POTASSIUM (test code = K) MMOL/L 3.5-5.1 CHLORIDE (test code = CL) 99 MMOL/L 98-107 N CARBON DIOXIDE (test code = CO2) MMOL/L 22-30 GLUCOSE (test code = GLU) MG/DL 74-106 BLOOD UREA NITROGEN (test code = MG/DL 9-20 BUN) GLOMERULAR FILTRATION RATE (test code = GFR) CREATININE (test code = CREAT) MG/DL 0.66-1.25 CALCIUM (test code = CA) MG/DL 8.7-9.7 Comments to Culvert Installer: NURSE WILL BRING SPECIMEN TO LABIs this a LINE draw? N [id number] 13:13:00 Test Item Value Reference Range Interpretation Comments MAGNESIUM (test code = MAG) MG/DL 1.6-2.3 Comments to Culvert Installer: NURSE WILL BRING SPECIMEN TO LABIs this a LINE draw? N PROTHROMBIN [id number] 13:08:00 Test Item Value Reference Range Interpretation Comments PROTHROMBIN TIME 12.7 SECONDS 9.4-12.5 H PATIENT (test code = PTP) INTERNATIONAL NORMAL 1.2 The INR is to be RATIO (test code = used only for INR) monitoring oral anticoagulantth erap y. INDICATION I NR VALUE ---- ---- ---- -------1. Prophylaxis, de ep venous thrombos is, including hig h risk surgery. 2.0 - 3.0 2. Prophylaxis, de ep venous thrombos is, hip surgery, treatment for d eep venous thrombosis or pulmonary prevention of systemic emboli sm in patients wit h valvular heart disease, atrial fibrillation, tissue heart va lve, or acute myocar dial infarction. 2.0 - 3 .0 3. Mechanical prosthesis hear t valves, recurrent syste lynette embolism. 3.0 - 4.5 Comments to Culvert Installer: NURSE WILL BRING SPECIMEN TO LABPTT ACTIVATED 2020-06-19 13:08:00 Test Item Value Reference Range Interpretation Comments PTT ACTIVATED (test code = APTT) 30.8 SECONDS 25.1-36.5 N Comments to Culvert Installer: NURSE WILL BRING SPECIMEN TO LABCBC W/AUTO DIFF 2020-06-19 12:51:00 Test Item Value Reference Range Interpretation Comments WHITE BLOOD CELL (test code = 6.5 K/MM3 3.8-9.8 N WBC) RED BLOOD CELL (test code = 4.59 M/MM3 3.95-5.67 N RBC) HEMOGLOBIN (test code = HGB) 14.4 G/DL 12.4-16.7 N HEMATOCRIT (test code = HCT) 46.2 % 35.9-49.5 N MEAN CELL VOLUME (test code = 101 fL 81.7-96.1 H MCV) MEAN CELL HGB (test code = MCH) 31.4 pg 27.6-33.2 N MEAN CELL HGB CONCETRATION 31.2 % 32.9-35.5 L (test code = MCHC) RED CELL DISTRIBUTION WIDTH 12.0 % 12.1-15.2 L (test code = RDW) PLATELET COUNT (test code = 176 K/MM3 129-368 N PLT) MEAN PLATELET VOLUME (test code 10.7 fl 7.4-10.4 H = MPV) NEUTROPHIL % (test code = NT%) 61.0 % 43-75 N IMMATURE GRANULOCYTE % (test 0.3 % 0.0-2.0 N code = IG%) LYMPHOCYTE % (test code = LY%) 27.8 % 14-44 N MONOCYTE % (test code = MO%) 8.6 % 4-13 N EOSINOPHIL % (test code = EO%) 1.7 % 0-6 N BASOPHIL % (test code = BA%) 0.6 % 0-2 N NUCLEATED RBC % (test code = 0.0 % 0-1.0 N NRBC%) NEUTROPHIL # (test code = NT#) 3.99 K/mm3 2.0-7.6 N IMMATURE GRANULOCYTE # (test 0.02 x10 3/uL 0-0.03 N code = IG#) LYMPHOCYTE # (test code = LY#) 1.82 K/mm3 1.0-3.8 N MONOCYTE # (test code = MO#) 0.56 K/mm3 0.1-0.8 N EOSINOPHIL # (test code = EO#) 0.11 K/mm3 0.0-0.2 N BASOPHIL # (test code = BA#) 0.04 K/mm3 0.0-0.2 N NUCLEATED RBC # (test code = 0.00 K/mm3 0.0-0.1 N NRBC#) Comments to Culvert Installer: NURSE WILL BRING SPECIMEN TO LABIs this a LINE draw? N COVID 19 Asymptomatic IH [id number] 12:14:00 Test Item Value Reference Range Interpretation Comments COVID 19 NEGATIVE Negative "Negative resul ts from Asymptomatic IH AG patients with symptom (test code = onset beyondfiv e days, COVNONPUIAG) should be edel anirudh as presumptive, andconfirmation with a molecular assay , if necessary forpa tient management may be performed. Nega tive results do notr ule out COVID-19 and sh ould not be used as the sole basisfor treatm ent or patient managem ent decisions, includinginfect ion control decisio ns. Negative result s should beconsidered in the context of a pa tients recent exposure s,history, and the presenc e of clinical signs and symptomsconsist ent with COVID-19.This t est detects both vi able andnon-viable S ARS-CoV and SARS CoV-2. Test performance dep endson the amount of virus (antigen) in the sample."
[2021-12-20 07:40] LABS: Urine Blood Trace-intact (Negative); Urine Glucose Negative (Negative); Urine Protein Negative (Negative)
[2021-12-20] MEDS ORDERED: ONDANSETRON 4 MG/2 ML VIAL ONE (08:21)
[2021-12-20] MEDS ORDERED: MORPHINE 4 MG/ML SYR ONE (08:21)
[2021-12-20 08:33] LABS: Hematocrit 42.8 % (39.6-49.0); Lymphocytes % 14.7 % (15.3-44.8); MPV 9.3 fL (7.6-11.3); RBC Red Blood Cell Count 4.63 M/uL (4.33-5.43)
[2021-12-20 08:35] LABS: Urine Bacteria <20 /HPF (NONE SEEN); Urine Mucus 1+ /HPF (NONE SEEN); Urine RBC <5 /HPF (NONE SEEN)
--- NOTE | 2021-12-20 08:42 | RAD REPORT ---
EXAM DESCRIPTION: CTAbdomen Pelvis W Contrast - 12/20/2021 8:33 am CLINICAL HISTORY: Abdominal pain. RLQ abd pain, no appendix COMPARISON: Abdomen Pelvis W Contrast dated 08/04/2018 TECHNIQUE: Biphasic CT imaging of the abdomen and pelvis was performed with 100 ml non-ionic IV cont rast. All CT scans are performed using dose optimization technique as appropriate and may include automated exposure control or mA/KV adjustment according to patient size. FINDINGS: Mildly emphysematous lung bases. The liver, spleen, pancreas, adrenal glands and kidneys are within normal limits. No bowel obstruction, free air, free fluid or abscess. Mild nonspecific inflammatory fat stranding is seen the fat inferior to the right lobe of the liver. Appendectomy. Moderate stool throughout the co terry. Mild sigmoid diverticulosis without diverticulitis. No evidence of significant lymphadenopathy. No suspicious bony findings. IMPRESSION: Mild nonspecific inflammation is seen in the omental fatty inferior to the right lobe li jose.
[2021-12-20 08:44] LABS: ALT/SGPT 17 U/L (12-78); Albumin 3.5 g/dL (3.4-5.0); Alkaline Phosphatase 94 U/L (45-117); BUN Blood Urea Nitrogen 21 mg/dL (7-18); Bicarbonate 32 mmol/L (21-32); Bilirubin Total 1.3 mg/dL (0.2-1.0); Glucose Level 111 mg/dL (74-106); Lipase 66 U/L (73-393); Potassium 4.3 mmol/L (3.5-5.1); Protein, Total 7.6 g/dL (6.4-8.2); Sodium Level 133 mmol/L (136-145)
[2021-12-20 08:45] LABS: AST/SGOT < 3 U/L (15-37)
[2021-12-20] MEDS ORDERED: CIPROFLOXACIN 400mg IV 400 MG/200 ML BAG IV ONE (09:23)
[2021-12-20] MEDS ORDERED: METRONIDAZOLE 500mg IVPB 500 MG/100 ML BAG IV ONE (09:24)
--- NOTE | 2021-12-20 10:07 | ER ---
Nurse's Notes [facility] Name: Juan C Monge Age: 61 yrs Sex: Male : 1960 Arrival Date: 12/20/2021 Time: 06:41 Bed 14 Private MD: Diagnosis: Nonspecific omental inflammation Presentation: 12/20 06:47 Chief complaint: Patient states: "Extreme pain in my lower right quaudrant liver area. tw5 I have upper and lower GI done and didn't find anything wrong, but for the past two days I have had extreme pain.". Coronavirus screen: Vaccine status: Patient reports receiving the 2nd dose of the covid vaccine. Moderna. Ebola Screen: Patient negative for fever greater than or equal to 101.5 degrees Fahrenheit, and additional compatible Ebola Virus Disease symptoms Patient denies exposure to infectious person. Patient denies travel to an Ebola-affected area in the 21 days before illness onset. Initial Sepsis Screen: Does the patient meet any 2 criteria? No. Patient's initial sepsis screen is negative. Does the patient have a suspected source of infection? No. Patient's initial sepsis screen is negative. Risk Assessment: Do you want to hurt yourself or someone else? Patient reports no desire to harm self or others. Onset of symptoms was December 18, 2021. 06:47 Method Of Arrival: Ambulatory tw5 06:47 Acuity: JESSI 3 tw5 Triage Assessment: 06:50 General: Appears uncomfortable, Behavior is calm, cooperative, appropriate for age. tw5 Pain: Complains of pain in right lower quadrant Pain currently is 6 out of 10 on a pain scale. Historical: - Allergies: 06:50 No Known Allergies; tw5 - PMHx: 06:50 Atrial Fib; COPD; CVA; Hyperlipidemia; Hypertension; Myocardial infarction; skull tw5 fracture; - Immunization history:: Flu vaccine is up to date. - Social history:: Smoking status: Patient/guardian denies using tobacco, the patient reports quitting approximately 2 years ago. - Family history:: not pertinent. - Hospitalizations: : No recent hospitalization is reported. Screenin:20 Abuse screen: Denies threats or abuse. Nutritional screening: No deficits noted. ap3 Tuberculosis screening: No symptoms or risk factors identified. 11:24 Fall Risk None identified. ap3 Assessment: 08:19 General: Appears in no apparent distress. uncomfortable, Behavior is calm, cooperative, ap3 appropriate for age. Pain: Complains of pain in abdomen and right lower quadrant. Neuro: Level of Consciousness is awake, alert, obeys commands, Oriented to person, place, time, situation, Appropriate for age Speech is normal. Cardiovascular: Patient's skin is warm and dry. Respiratory: Airway is patent Respiratory effort is even, unlabored, Respiratory pattern is regular, symmetrical. 08:56 Reassessment: Patient and/or family updated on plan of care and expected duration. Pain ap3 level reassessed. Patient is alert, oriented x 3, equal unlabored respirations, skin warm/dry/pink. 09:58 Reassessment: Patient and/or family updated on plan of care and expected duration. Pain ap3 level reassessed. Patient is alert, oriented x 3, equal unlabored respirations, skin warm/dry/pink. Patient states symptoms have improved. 10:08 Reassessment: awaiting completion of antibiotics prior to patient discharging. ap3 Vital Signs: 06:47 BP 130 / 90; Pulse 88; Resp 18; Temp 97.9; Pulse Ox 95% on R/A; Weight 72.57 kg; Height tw5 5 ft. 10 in. (177.80 cm); Pain 6/10; 08:55 BP 125 / 79; Pulse 80; Pulse Ox 95% on R/A; ap3 09:58 BP 121 / 68; Pulse 80; Pulse Ox 93% on R/A; ap3 11:23 BP 99 / 71; Pulse 74; Pulse Ox 94% on R/A; ap3 06:47 Body Mass Index 22.96 (72.57 kg, 177.80 cm) tw5 ED Course: 06:41 Patient arrived in ED. jj6 06:49 Triage completed. tw5 06:50 Arm band placed on left wrist. tw5 07:31 Kimberli Vyas, SERA is Primary Nurse. ap3 07:33 Genaro England MD is Attending Physician. rn 07:41 Urine collected: clean catch specimen, cloudy, saige colored. tm3 08:20 Patient has correct armband on for positive identification. Bed in low position. Call ap3 light in reach. Side rails up X 1. Pulse ox on. NIBP on. Door closed. Noise minimized. 08:20 Inserted saline lock: 20 gauge in left forearm, using aseptic technique. mb7 08:35 CT Abd/Pelvis - IV Contrast Only In Process Unspecified. EDMS 10:06 Jeffrey Nowak MD is Referral Physician. rn 11:23 No provider procedures requiring assistance completed. IV discontinued, intact, ap3 bleeding controlled, No redness/swelling at site. Pressure dressing applied. Administered Medications: 08:46 Drug: morphine 2 mg Route: IVP; Site: left antecubital; ap3 09:16 Follow up: Response: No adverse reaction ap3 08:46 Drug: Zofran (Ondansetron) 4 mg Route: IVP; Site: left antecubital; ap3 09:16 Follow up: Response: No adverse reaction ap3 09:28 Drug: Cipro (ciprofloxacin) 400 mg Volume: 200 ml; Route: IVPB; Infused Over: 60 mins; ap3 Site: left antecubital; 10:31 Follow up: IV Status: Completed infusion; IV Intake: 200ml ap3 10:32 Drug: Flagyl (metroNIDAZOLE) 500 mg Volume: 100 ml; Route: IVPB; Rate: 200 ml/hr; ap3 Infused Over: 30 mins; Site: left antecubital; 11:24 Follow up: Response: No adverse reaction; IV Status: Completed infusion ap3 Intake: 10:31 IV: 200ml; Total: 200ml. ap3 Outcome: 10:07 Discharge ordered by MD. rn 11:24 Discharged to home ambulatory. ap3 11:24 Condition: good 11:24 Discharge instructions given to patient, Instructed on discharge instructions, follow up and referral plans. medication usage, Demonstrated understanding of instructions, follow-up care, medications, Prescriptions given X 3. 11:25 Patient left the ED. ap3 Signatures: Dispatcher [employer] EDMS Bravo Eric tm3 Genaro England MD MD rn Prokisch, Amanda, RN RN ap3 Teresa Reyna tw5 Lorraine Son6 Marika Choudhury mb7
--- NOTE | 2021-12-20 10:07 | EDPHYS ---
Physician Documentation [facility] Name: Juan C Monge Age: 61 yrs Sex: Male : 1960 Arrival Date: 12/20/2021 Time: 06:41 Bed 14 Private MD: ED Physician Genaro England HPI: 12/20 08:56 This 61 yrs old Male presents to ER via Ambulatory with complaints of LOWER RT QUAD rn PAIN/CRAMPING. 08:56 The patient presents with abdominal pain right lower quadrant. Onset: The rn symptoms/episode began/occurred 2 day(s) ago. The symptoms do not radiate. Associated signs and symptoms: Pertinent negatives: nausea and vomiting, blood in stools, fever, hematuria, vomiting. Modifying factors: The symptoms are alleviated by nothing, the symptoms are aggravated by touching the area. Severity of pain: At its worst the pain was moderate in the emergency department the pain is unchanged. The patient has experienced a previous episode. The patient has not recently seen a physician. Pt reports RLQ pain for 2 days, not improving, happened once before 1 year ago and saw GI with neg upper and lower scopes. No fever. NO vomiting/diarrhea. Has had appendix removed. . Historical: - Allergies: 06:50 No Known Allergies; tw5 - PMHx: 06:50 Atrial Fib; COPD; CVA; Hyperlipidemia; Hypertension; Myocardial infarction; skull tw5 fracture; - Immunization history:: Flu vaccine is up to date. - Social history:: Smoking status: Patient/guardian denies using tobacco, the patient reports quitting approximately 2 years ago. - Family history:: not pertinent. - Hospitalizations: : No recent hospitalization is reported. ROS: 08:56 Constitutional: Negative for fever, chills, and weight loss, Eyes: Negative for injury, rn pain, redness, and discharge, Cardiovascular: Negative for chest pain, palpitations, and edema, Respiratory: Negative for shortness of breath, cough, wheezing, and pleuritic chest pain, Abdomen/GI: + RLQ abd pain Back: Negative for injury and pain, : Negative for injury, bleeding, discharge, and swelling, MS/Extremity: Negative for injury and deformity, Skin: Negative for injury, rash, and discoloration, Neuro: Negative for headache, weakness, numbness, tingling, and seizure. Exam: 08:56 Constitutional: This is a well developed, well nourished patient who is awake, alert, rn and in no acute distress. Head/Face: Normocephalic, atraumatic. Eyes: Periorbital areas with no swelling, redness, or edema. Cardiovascular: Regular rate and rhythm with a normal S1 and S2. No gallops, murmurs, or rubs. Normal PMI, no JVD. No pulse deficits. Respiratory: Lungs have equal breath sounds bilaterally, clear to auscultation and percussion. No rales, rhonchi or wheezes noted. No increased work of breathing, no retractions or nasal flaring. Abdomen/GI: Soft, + RLQ tenderness, no rebound, no masses Skin: Warm, dry MS/ Extremity: Pulses equal, no cyanosis. Neuro: Awake and alert, GCS 15 Vital Signs: 06:47 BP 130 / 90; Pulse 88; Resp 18; Temp 97.9; Pulse Ox 95% on R/A; Weight 72.57 kg; Height tw5 5 ft. 10 in. (177.80 cm); Pain 6/10; 08:55 BP 125 / 79; Pulse 80; Pulse Ox 95% on R/A; ap3 09:58 BP 121 / 68; Pulse 80; Pulse Ox 93% on R/A; ap3 11:23 BP 99 / 71; Pulse 74; Pulse Ox 94% on R/A; ap3 06:47 Body Mass Index 22.96 (72.57 kg, 177.80 cm) tw5 MDM: 07:33 Patient medically screened. rn 09:13 Differential diagnosis: bowel obstruction, diverticulitis, gastritis, non-specific abd rn pain, Peritonitis, Ureterolithiasis. Data reviewed: vital signs, nurses notes, lab test result(s), radiologic studies, CT scan, and as a result, I will discharge patient. Counseling: I had a detailed discussion with the patient and/or guardian regarding: the historical points, exam findings, and any diagnostic results supporting the discharge/admit diagnosis, lab results, radiology results. Response to treatment: the patient's symptoms have markedly improved after treatment, and as a result, I will discharge patient. Special discussion: Based on the patient's Hx, exam, and Dx evaluation, there is no indication for emergent surgery or inpatient Tx. It is understood by the patient/guardian that if the Sx's persist or worsen they need to return immediately for re-evaluation. I discussed with the patient/guardian in detail that at this point there is no indication for admission to the hospital. It is understood, however, that if the symptoms persist or worsen the patient needs to return immediately for re-evaluation. ED course: Consulted with Dr. Nowak regarding non-specific inflammation of omentum, states if pain controlled can dc home with abx and f/u with him this week in clinic, or if pain not controlled admit for observation and iv abx. Discussed at length with patient, after description and discussion, patient wants to go home, doesn't want to be admitted, understands risks and benefits. Will dc home with abx, pain meds, and f/u with Dr. Nowak. . 10:06 ED course: Evaluated by Dr. Nowak here, feels much better, almost done with abx, DPavanr nely Nowak states can go home and f/u.. 12/20 07:40 Order name: Urine Dipstick-Ancillary; Complete Time: 07:40 EDMS 12/20 07:40 Order name: CBC with Diff; Complete Time: 08:43 rn 12/20 07:40 Order name: CMP; Complete Time: 08:55 rn 12/20 07:40 Order name: Lipase; Complete Time: 08:55 rn 12/20 07:40 Order name: Urine Microscopic Only; Complete Time: 08:43 rn 12/20 07:40 Order name: CT Abd/Pelvis - IV Contrast Only; Complete Time: 08:43 rn 12/20 07:40 Order name: IV Saline Lock; Complete Time: 08:19 rn 12/20 07:40 Order name: Labs collected and sent; Complete Time: 08:19 rn 12/20 07:40 Order name: Urine Dipstick-Ancillary (obtain specimen); Complete Time: 08:47 rn Administered Medications: 08:46 Drug: morphine 2 mg Route: IVP; Site: left antecubital; ap3 09:16 Follow up: Response: No adverse reaction ap3 08:46 Drug: Zofran (Ondansetron) 4 mg Route: IVP; Site: left antecubital; ap3 09:16 Follow up: Response: No adverse reaction ap3 09:28 Drug: Cipro (ciprofloxacin) 400 mg Volume: 200 ml; Route: IVPB; Infused Over: 60 mins; ap3 Site: left antecubital; 10:31 Follow up: IV Status: Completed infusion; IV Intake: 200ml ap3 10:32 Drug: Flagyl (metroNIDAZOLE) 500 mg Volume: 100 ml; Route: IVPB; Rate: 200 ml/hr; ap3 Infused Over: 30 mins; Site: left antecubital; 11:24 Follow up: Response: No adverse reaction; IV Status: Completed infusion ap3 Disposition Summary: 12/20/21 10:07 Discharge Ordered Location: Home rn Problem: new rn Symptoms: have improved rn Condition: Stable rn Diagnosis - Nonspecific omental inflammation rn Followup: rn - With: Jeffrey Nowak MD - When: 2 - 3 days - Reason: Recheck today's complaints, Re-evaluation by your physician Discharge Instructions: - Discharge Summary Sheet rn - Abdominal Pain, Adult rn Forms: - Medication Reconciliation Form rn - Thank You Letter rn - Antibiotic hose 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
[2021-12-20 11:31] VITALS: TEMP 97.9
[2021-12-20 11:34] VITALS: BP 99/71; O2SAT 94
--- NOTE | 2021-12-20 11:37 | P.CNS ---
Date of Consult: 12/20/21 Reason for consult: Abdominal pain History of present illness: Patient is a 61-year-old gentleman who presents with several day history of increasing right lower quadrant abdominal pain. Patient denies nausea, vomiting, diarrhea, constipation, blood per rectum, dysuria or hematuria. No sore throat, runny nose, cough, headaches, dizziness, chest pain or fever or chills. When patient is resting there is no pain but when patient is moving or goes over a bump in the car that is when he feels the pain. Review of systems: Otherwise unremarkable Past medical history: A. fib, heart disease, history of [place], hypercholesterolemia Past surgical history: Defibrillator and a pacemaker placement Allergies: None Social history: Patient quit smoking and drinking alcohol 2 years ago Family history: Noncontributory Vital signs: Vital signs are stable patient is afebrile Physical exam: Awake alert oriented x3 Head and neck exam: Cranial nerves II through XII grossly within normal limits, no neck masses, no JVD, throat clear and neck is supple. Chest: Clear Heart: S1-S2 Abdomen: Soft, nondistended, positive bowel sounds and patient has exquisite tenderness in the right middle and right lower quadrant. Remainder of the abdomen does not show any sign of peritonitis. Extremity: Well-perfused and nontender Neuro: Nonfocal Diagnostic data: White count is normal there is no left shift. CT CT of the abdomen pelvis shows mild inflammation of the omentum in the right side of the abdomen. Assessment: Assessment abdominal pain secondary to inflamed omentum Plan/recommendation: Patient's pain is controlled and patient wants to go home. Therefore patient will be discharged home with pain medicine and antibiotics. Patient is to follow-up with me in the office as an outpatient. Patient symptoms do not improve with medical management then patient may benefit from surgical intervention. Plan of care discussed in detail with the patient. Patient understands and agrees to follow-up. CC:
== END 2021-12-20 11:25 | disposition home or self-care (01) ==
LOC: ER 06:39
DX: K66.8 Other specified disorders of peritoneum (principal); I10 Essential (primary) hypertension; I48.91 Unspecified atrial fibrillation; Z86.73 Personal history of transient ischemic attack (TIA), and cerebral infarction without residual deficits
CPT/HCPCS: 96365; 96367; 85025; 36415; 82565; 83690; 80053; 74177; 96375; 99284; Q9967; J2405; J0744; 81003; 81015

== ENCOUNTER 2021-12-22 09:18 | Emergency (ER) | payer OTHER ==
--- OUTSIDE RECORDS SUMMARY | 2021-12-22 09:25 | XMS REPORT | Continuity of Care Document ---
:1960 Author Organization [facility] t Address 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 Branch History [facility] University o f Alcohol Binge [facility] Exposure to Not sure [place] of SARS-CoV-2 (event) [facility] Cigarettes smoked 2020-12-29 2020-12-29 Univers ity of current (pack per 00:00:00 00:00:00 [facility]) - Reported [place] Tobacco use and 2020-12-29 2020-12-29 Former user Universi ty of exposure 00:00:00 00:00:00 [facility] Alcohol intake 2020-12-29 2020-12-29 Current drinker Unive rsity of 00:00:00 00:00:[address] [facility] (finding) Branch History SDOH 2019-08-26 2019-08-26 5 University o f Alcohol Frequency 00:00:00 00:00:00 [facility] Alcohol Comment 2014-08-27 2014-08-27 8 drinks per day Uni versity of 00:00:00 00:00:00 [facility] Sex Ass[birth year] At [birth year] Universit y of 00:00:00 00:00:00 [facility] Smoking Status Start Date Stop Date Source Current every day smoker 2020-12-29 00:00:00 Uni versity of [facility] Medications Ordered Filled Start Stop Current Ordering Indication Dosage Frequency Signature Comments Components Source Medication Medication Date Date Medication? Clinician (SIG) Name Name cephALEXin Yes [id number] 500mg Take 1 Univers (KEFLEX) 9-03 capsule by ity o f 500 mg 00:00: mouth 4 [place] capsule 00 (four) Medical times [place] daily. cephALEXin Yes [id number] 500mg Take 1 Univers (KEFLEX) 9-03 capsule by ity o f 500 mg 00:00: mouth 4 [place] capsule 00 (four) Medical times [place] daily. cefTRIAXone 2020- No 1000mg 1,000 mg, Univers (ROCEPHIN) 12-12- IV ity of 1,000 mg in 19:00: 18:23 [place]gy[place], [place] NaCl 0.9% 00 :00 ONCE, 1 Medical (NS) 50 mL dose, Fri Bran ch MINI-BAG 12/12/20 at 1400, 50 mL
Reas on for Anti-Infec tive: Empiric Therapy for Suspected Infection< br>Empiric Therapy Site: Urine
D uration of therapy: 72 hours carvediloL 2021-0 Yes 25mg Take 25 mg U nivers 25 mg 3-26 by mouth 2 ity of tablet 18:38: (two) [place] [address] times Medical daily with Branch meals. busPIRone 1-0 Yes 30mg Take 30 mg Un igor 30 mg 3-26 by mouth 2 ity of tablet 18:38: (two) [place] [address] times Medical daily. [place] benazepriL 2020-0 Yes 10mg Take 10 mg U nivers 10 mg 3-26 by mouth ity of tablet 18:38: daily. [address] hydroCHLORO 1-0 Yes 25mg Take 25 mg Univers thiazide 25 3-26 by mouth ity of mg tablet 18:38: daily. [address] carvediloL 1-0 Yes 25mg Take 25 mg U nivers 25 mg 3-26 by mouth 2 ity of tablet 18:38: (two) [place] [address] times Medical daily with Branch meals. busPIRone 1-0 Yes 30mg Take 30 mg Un igor 30 mg 3-26 by mouth 2 ity of tablet 18:38: (two) [place] [address] times Medical daily. Branch benazepriL 2020-0 Yes 10mg Take 10 mg U nivers 10 mg 3-26 by mouth ity of tablet 18:38: daily. [address] hydroCHLORO 1-0 Yes 25mg Take 25 mg Univers thiazide 25 3-26 by mouth ity of mg tablet 18:38: daily. [address] carvediloL 2020-0 Yes 25mg Take 25 mg U nivers 25 mg 3-26 by mouth 2 ity of tablet 18:38: (two) [place] [address] times Medical daily with Branch meals. busPIRone 2021-0 Yes 30mg Take 30 mg Un igor 30 mg 3-26 by mouth 2 ity of tablet 18:38: (two) [place] 04 times Medical daily. Branch benazepriL 2021-0 Yes 10mg Take 10 mg U nivers 10 mg 3-26 by mouth ity of tablet 18:38: daily. [address] hydroCHLORO 2021-0 Yes 25mg Take 25 mg Univers thiazide 25 3-26 by mouth ity of mg tablet 18:38: daily. [address] carvediloL 2021-0 Yes 25mg Take 25 mg U nivers 25 mg 3-26 by mouth 2 ity of tablet 18:38: (two) [place] 04 times Medical daily with Branch meals. busPIRone 2021-0 Yes 30mg Take 30 mg Un ig[place] 30 mg 3-26 by mouth 2 ity of tablet 18:38: (two) [place] [address] times Medical daily. Branch benazepriL 1-0 Yes 10mg Take 10 mg U nivers 10 mg 3-26 by mouth ity of tablet 18:38: daily. [address] hydroCHLORO 2020-0 Yes 25mg Take 25 mg Univers thiazide 25 3-26 by mouth ity of mg tablet 18:38: daily. [address] carvediloL 1-0 Yes 25mg Take 25 mg U nivers 25 mg 3-26 by mouth 2 ity of tablet 18:38: (two) [place] [address] times Medical daily with Branch meals. busPIRone 2021-0 Yes 30mg Take 30 mg Un [place] 30 mg 3-26 by mouth 2 ity of tablet 18:38: (two) [place] [address] times Medical daily. Branch benazepriL 2021-0 Yes 10mg Take 10 mg U nivers 10 mg 3-26 by mouth ity of tablet 18:38: daily. [address] hydroCHLORO 1-0 Yes 25mg Take 25 mg Univers thiazide 25 3-26 by mouth ity of mg tablet 18:38: daily. [address] carvediloL 2021-0 Yes 25mg Take 25 mg U nivers 25 mg 3-26 by mouth 2 ity of tablet 18:38: (two) [place] [address] times Medical daily with Branch meals. busPIRone 2021-0 Yes 30mg Take 30 mg Un [place] 30 mg 3-26 by mouth 2 ity of tablet 18:38: (two) [place] 04 times Medical daily. Branch benazepriL 2021-0 Yes 10mg Take 10 mg U nivers 10 mg 3-26 by mouth ity of tablet 18:38: daily. [address] hydroCHLORO 2021-0 Yes 25mg Take 25 mg Univers thiazide 25 3-26 by mouth ity of mg tablet 18:38: daily. [address] carvediloL 2021-0 Yes 25mg Take 25 [...] by mouth ity of tablet 18:38: daily. [address] hydroCHLORO 2021-0 Yes 25mg Take 25 mg Univers thiazide 25 3-26 by mouth ity of mg tablet 18:38: daily. [address] carvediloL 2021-0 Yes 25mg Take 25 mg U nivers 25 mg 3-26 by mouth 2 ity of tablet 18:38: (two) [place] [address] times Medical daily with Branch meals. busPIRone 2021-0 Yes 30mg Take 30 mg Un [place] 30 mg 3-26 by mouth 2 ity of tablet 18:38: (two) [place] 04 times Medical daily. Branch benazepriL 2021-0 Yes 10mg Take 10 mg U nivers 10 mg 3-26 by mouth ity of tablet 18:38: daily. [address] hydroCHLORO 2021-0 Yes 25mg Take 25 mg Univers thiazide 25 3-26 by mouth ity of mg tablet 18:38: daily. [address] carvediloL 2021-0 Yes 25mg Take 25 mg U nivers 25 mg 3-26 by mouth 2 ity of tablet 18:38: (two) [place] [address] times Medical daily with Branch meals. busPIRone 2021-0 Yes 30mg Take 30 mg Un [place] 30 mg 3-26 by mouth 2 ity of tablet 18:38: (two) [place] 04 times Medical daily. Branch benazepriL 2021-0 Yes 10mg Take 10 mg U nivers 10 mg 3-26 by mouth ity of tablet 18:38: daily. [address] hydroCHLORO 2021-0 Yes 25mg Take 25 mg Univers thiazide 25 3-26 by mouth ity of mg tablet 18:38: daily. [address] carvediloL 2021-0 Yes 25mg Take 25 [...] by mouth ity of tablet 18:38: daily. [address] hydroCHLORO 1-0 Yes 25mg Take 25 mg Univers thiazide 25 3-26 by mouth ity of mg tablet 18:38: daily. [address] carvediloL 2021-0 Yes 25mg Take 25 mg U nivers 25 mg 3-26 by mouth 2 ity of tablet 18:38: (two) [place] [address] times Medical daily with Branch meals. busPIRone 2021-0 Yes 30mg Take 30 mg [place] 30 mg 3-26 by mouth 2 ity of tablet 18:38: (two) [place] [address] times Medical daily. Branch benazepriL 2021-0 Yes 10mg Take 10 mg U nivers 10 mg 3-26 by mouth ity of tablet 18:38: daily. [address] hydroCHLORO 2021-0 Yes 25mg Take 25 mg Univers thiazide 25 3-26 by mouth ity of mg tablet 18:38: daily. [address] carvediloL 2021-0 Yes 25mg Take 25 mg U nivers 25 mg 3-26 by mouth 2 ity of tablet 18:38: (two) [place] [address] times Medical daily with Branch meals. busPIRone 2021-0 Yes 30mg Take 30 mg [place] 30 mg 3-26 by mouth 2 ity of tablet 18:38: (two) [place] 04 times Medical daily. Branch benazepriL 2021-0 Yes 10mg Take 10 mg U nivers 10 mg 3-26 by mouth ity of tablet 18:38: daily. [address] hydroCHLORO 1-0 Yes 25mg Take 25 mg Univers thiazide 25 3-26 by mouth ity of mg tablet 18:38: daily. [address] carvediloL 2020-0 Yes 25mg Take 25 [...] by mouth ity of tablet 18:38: daily. [address] hydroCHLORO 2020-0 Yes 25mg Take 25 mg Univers thiazide 25 3-26 by mouth ity of mg tablet 18:38: daily. [address] carvediloL 2020-0 Yes 25mg Take 25 mg U nivers 25 mg 3-26 by mouth 2 ity of tablet 18:38: (two) [place] 04 times Medical daily with Branch meals. busPIRone 1-0 Yes 30mg Take 30 mg Un [place] 30 mg 3-26 by mouth 2 ity of tablet 18:38: (two) [place] 04 times Medical daily. Branch benazepriL 1-0 Yes 10mg Take 10 mg U nivers 10 mg 3-26 by mouth ity of tablet 18:38: daily. [address] hydroCHLORO 1-0 Yes 25mg Take 25 mg Univers thiazide 25 3-26 by mouth ity of mg tablet 18:38: daily. [address] carvediloL 1-0 Yes 25mg Take 25 mg U nivers 25 mg 3-26 by mouth 2 ity of tablet 18:38: (two) [place] 04 times Medical daily with Branch meals. busPIRone 2021-0 Yes 30mg Take 30 mg Un [place] 30 mg 3-26 by mouth 2 ity of tablet 18:38: (two) [place] 04 times Medical daily. Branch benazepriL 2021-0 Yes 10mg Take 10 mg U nivers 10 mg 3-26 by mouth ity of tablet 18:38: daily. [address] Branch hydroCHLORO Yes 25mg Take 25 mg Univers thiazide 25 - by mouth ity of mg tablet 18:38: daily. [address] iohexol 2020- No [id number] 120mL 120 mL, Univers (OMNIPAQUE 12-12 Intravenou it y of 350 17:30: 17:21 s, ONCE, 1 [place] BULK-150 00 :00 dose, Fri Medica l mL) 12/12/20 at Branch injection 1230, 120 mL Routine aspirin 81 2020- No 81mg Take 81 mg Univers mg EC 12-12 by mouth ity of tablet 16:57: 00:00 daily. [place] 40 :00 [facility] Branch varenicline 2020- No 1mg Take 1 mg Univers (CHANTIX) 1 12-12 by mouth 2 i ty of mg tablet 16:57: 00:00 (two) [place] 18 :00 times Medical daily. Branch predniSONE 2020- No 20mg Take 20 mg Univers 20 mg 12-12 by mouth ity of tablet 16:57: 00:00 daily. [place] 12 :00 [facility] Branch fluticasone 2020- No 1{puff} Inhale 1 Univers -umeclidin- 12-12 Puff ity of vilanter 16:56: 00:00 daily. [place] (TRELEGY 46 :00 Medical ELLIPTA) Branch 100-62.5-25 mcg DsDv cefpodoxime Yes [id number] 100mg Take 1 Univers 100 mg 3-26 tablet by ity of tablet 00:00: mouth 2 [place] 00 (two) Medical times [place] daily. cefpodoxime 0 Yes [id number] 100mg Take 1 Univers 100 mg 3-26 tablet by ity of tablet 00:00: mouth 2 [place] 00 (two) Medical times [place] daily. cefpodoxime 2020-0 Yes [id number] 100mg Take 1 Univers 100 mg 3-26 tablet by ity of tablet 00:00: mouth 2 [place] 00 (two) Medical times [place] daily. cefpodoxime 2020-0 Yes [id number] 100mg Take 1 Univers 100 mg 3-26 tablet by ity of tablet 00:00: mouth [place] (two) Medical times Branch daily. cefpodoxime 2021-0 Yes [id number] 100mg Take 1 Univers 100 mg 3-26 tablet by ity of tablet 00:00: mouth [place] (two) Medical times Branch daily. cefpodoxime 2021-0 Yes [id number] 100mg Take 1 Univers 100 mg 3-26 tablet by ity of tablet 00:00: mouth [place] (two) Medical times Branch daily. cefpodoxime 2021-0 Yes [id number] 100mg Take 1 Univers 100 mg 3-26 tablet by ity of tablet 00:00: mouth [place] (two) Medical times Branch daily. cefpodoxime 2021-0 Yes [id number] 100mg Take 1 Univers 100 mg 3-26 tablet by ity of tablet 00:00: mouth [place] (two) Medical times Branch daily. cefpodoxime 2021-0 Yes [id number] 100mg Take 1 Univers 100 mg 3-26 tablet by ity of tablet 00:00: mouth [place] (two) Medical times Branch daily. cefpodoxime 2021-0 Yes [id number] 100mg Take 1 Univers 100 mg 3-26 tablet by ity of tablet 00:00: mouth [place] (two) Medical times Branch daily. cefpodoxime 2021-0 Yes [id number] 100mg Take 1 Univers 100 mg 3-26 tablet by ity of tablet 00:00: mouth [place] (two) Medical times Branch daily. cefpodoxime 2021-0 Yes [id number] 100mg Take 1 Univers 100 mg 3-26 tablet by ity of tablet 00:00: mouth [place] (two) Medical times Branch daily. cefpodoxime 2021-0 Yes [id number] 100mg Take 1 Univers 100 mg 3-26 tablet by ity of tablet 00:00: mouth [place] (two) Medical times Branch daily. cefpodoxime 2021-0 Yes [id number] 100mg Take 1 Univers 100 mg 3-26 tablet by ity of tablet 00:00: mouth [place] (two) Medical times Branch daily. cefpodoxime 2021-0 Yes [id number] 100mg Take 1 Univers 100 mg 3-26 tablet by ity of tablet 00:00: mouth [place] (two) Medical times Branch daily. cefpodoxime 0 2020- No [id number] 100mg Take 1 Univers 100 mg 12-12 tablet by ity of tablet 00:00: 00:00 mouth 2 [place] 00 :00 (two) Medical times Branch daily for 7 days. XARELTO 15 0 Yes Univers mg tablet 10-16 ity of 00:00: [place] [facility] XARELTO 15 2020-0 Yes Univers mg tablet 10-16 ity of 00:00: [place] [facility] XARELTO 15 2020-0 Yes Univers mg tablet 10-16 ity of 00:00: [place] [facility] XARELTO 15 2020-0 Yes Univers mg tablet 10-16 ity of 00:00: [place] [facility] XARELTO 15 2020-0 Yes Univers mg tablet 10-16 ity of 00:00: [place] [facility] XARELTO 15 2020-0 Yes Univers mg tablet 10-16 ity of 00:00: [place] [facility] XARELTO 15 2020-0 Yes Univers mg tablet 10-16 ity of 00:00: [place] [facility] XARELTO 15 2020-0 Yes Univers mg tablet 10-16 ity of 00:00: [place] [facility] XARELTO 15 2020-0 Yes Univers mg tablet 10-16 ity of 00:00: [place] [facility] XARELTO 15 2020-0 Yes Univers mg tablet 10-16 ity of 00:00: [place] [facility] XARELTO 15 2020-0 Yes Univers mg tablet 10-16 ity of 00:00: [place] [facility] XARELTO 15 2020-0 Yes Univers mg tablet 10-16 ity of 00:00: [place] [facility] XARELTO 15 2020-0 Yes Univers mg tablet 28 ity of 00:00: [place] [facility] XARELTO 15 2020-0 Yes Univers mg tablet 10-16 ity of 00:00: [place] [facility] XARELTO 15 2020-0 Yes Univers mg tablet 10-16 ity of 00:00: [place] [facility] XARELTO 15 2020-0 Yes Univers mg tablet -28 ity of 00:00: [place] [facility] XARELTO 15 2020-0 Yes Univers mg tablet -28 ity of 00:00: [place] [address] Medical Branch XARELTO 15 2020-0 Yes Univers mg tablet 10-16 ity of 00:00: [place] [address] Medical [place] omeprazole 2018-09 Yes 40mg Take 40 mg U nivers 40 mg 2-10 by mouth ity of capsule 00:11: daily. [address] omeprazole 2018-09 Yes 40mg Take 40 mg U nivers 40 mg 2-10 by mouth ity of capsule 00:11: daily. [address] varenicline 2018-09 Yes 1mg Take 1 mg U nivers (CHANTIX) 1 2-10 by mouth 2 it y of mg tablet 00:11: (two) [address] Medical daily. Branch predniSONE 2018-09 Yes 20mg Take 20 mg U nivers 20 mg 2-10 by mouth ity of tablet 00:11: daily. [address] omeprazole 2018-09 Yes 40mg Take 40 mg U nivers 40 mg 2-10 by mouth ity of capsule 00:11: daily. [address] fluticasone 2018-09 Yes 1{puff} Inhale 1 Univers -umeclidin- 2-10 Puff ity of vilanter 00:11: daily. [address]) Branch 100-62.5-25 mcg DsDv aspirin 81 2018-09 Yes 81mg Take 81 mg U nivers mg EC 2-10 by mouth ity of tablet 00:11: daily. [address] varenicline 2018-09 Yes 1mg Take 1 mg U nivers (CHANTIX) 1 2-10 by mouth 2 it y of mg tablet 00:11: (two) [place] [address] times Medical daily. Branch predniSONE 2018-09 Yes 20mg Take 20 mg U nivers 20 mg 2-10 by mouth ity of tablet 00:11: daily. [address] omeprazole 2018-09 Yes 40mg Take 40 mg U nivers 40 mg 2-10 by mouth ity of capsule 00:11: daily. [address] fluticasone 2018-09 Yes 1{puff} Inhale 1 Univers -umeclidin- 2-10 Puff ity of vilanter 00:11: daily. [address]) Branch 100-62.5-25 mcg DsDv aspirin 81 2018-09 Yes 81mg Take 81 mg U nivers mg EC 2-10 by mouth ity of tablet 00:11: daily. [address] varenicline 2018-09 Yes 1mg Take 1 mg U nivers (CHANTIX) 1 2-10 by mouth 2 it y of mg tablet 00:11: (two) [place] [address] times Medical daily. Branch predniSONE 2018-09 Yes 20mg Take 20 mg U nivers 20 mg 2-10 by mouth ity of tablet 00:11: daily. [address] omeprazole 2018-09 Yes 40mg Take 40 mg U nivers 40 mg 2-10 by mouth ity of capsule 00:11: daily. [address] fluticasone 2018-09 Yes 1{puff} Inhale 1 Univers -umeclidin- 2-10 Puff ity of vilanter 00:11: daily. [place] ([address]) Branch 100-62.5-25 mcg DsDv aspirin 81 2018-09 Yes 81mg Take 81 mg U nivers mg EC 2-10 by mouth ity of tablet 00:11: daily. [address] varenicline 2018-09 Yes 1mg Take 1 mg U nivers (CHANTIX) 1 2-10 by mouth 2 it y of mg tablet 00:11: (two) [address] daily. Branch predniSONE 2018-09 Yes 20mg Take 20 mg U nivers 20 mg 2-10 by mouth ity of tablet 00:11: daily. [address] omeprazole 2018-09 Yes 40mg Take 40 mg U nivers 40 mg 2-10 by mouth ity of capsule 00:11: daily. [address] fluticasone 2018-09 Yes 1{puff} Inhale 1 Univers -umeclidin- 2-10 Puff ity of vilanter 00:11: daily. [place] ([address]) Branch 100-62.5-25 mcg DsDv aspirin 81 2018-09 Yes 81mg Take 81 mg U nivers mg EC 2-10 by mouth ity of tablet 00:11: daily. [address] varenicline 2018-09 Yes 1mg Take 1 mg U nivers (CHANTIX) 1 2-10 by mouth 2 it y of mg tablet 00:11: (two) [address] Medical daily. Branch predniSONE 2018-09 Yes 20mg Take 20 mg U nivers 20 mg 2-10 by mouth ity of tablet 00:11: daily. [address] omeprazole 2018-09 Yes 40mg Take 40 mg U nivers 40 mg 2-10 by mouth ity of capsule 00:11: daily. [address] fluticasone 2018- Yes 1{puff} Inhale 1 Univers -umeclidin- 2-10 Puff ity of vilanter 00:11: daily. [address]) Branch 100-62.5-25 mcg DsDv aspirin 81 2018-09 Yes 81mg Take 81 mg U nivers mg EC 2-10 by mouth ity of tablet 00:11: daily. [address] varenicline 2018-09 Yes 1mg Take 1 mg U nivers (CHANTIX) 1 2-10 by mouth 2 it y of mg tablet 00:11: (two) [address] daily. Branch predniSONE 2018-09 Yes 20mg Take 20 mg U nivers 20 mg 2-10 by mouth ity of tablet 00:11: daily. [address] omeprazole 2018-09 Yes 40mg Take 40 mg U nivers 40 mg 2-10 by mouth ity of capsule 00:11: daily. [address] fluticasone 2018-09 Yes 1{puff} Inhale 1 Univers -umeclidin- 2-10 Puff ity of vilanter 00:11: daily. [place] ([address]) Branch 100-62.5-25 mcg DsDv aspirin 81 2018-09 Yes 81mg Take 81 mg U nivers mg EC 2-10 by mouth ity of tablet 00:11: daily. [address] omeprazole 2018- Yes 40mg Take 40 mg U nivers 40 mg 2-10 by mouth ity of capsule 00:11: daily. [address] omeprazole 2018- Yes 40mg Take 40 mg U nivers 40 mg 2-10 by mouth ity of capsule 00:11: daily. [address] omeprazole 2018- Yes 40mg Take 40 mg U nivers 40 mg 2-10 by mouth ity of capsule 00:11: daily. [address] omeprazole 2018- Yes 40mg Take 40 mg U nivers 40 mg 2-10 by mouth ity of capsule 00:11: daily. [address] omeprazole 2018-09 Yes 40mg Take 40 mg U nivers 40 mg 2-10 by mouth ity of capsule 00:11: daily. [address] omeprazole 2018-09 Yes 40mg Take 40 mg U nivers 40 mg 2-10 by mouth ity of capsule 00:11: daily. [address] omeprazole 2018-09 Yes 40mg Take 40 mg U nivers 40 mg 2-10 by mouth ity of capsule 00:11: daily. [address] omeprazole 2018-09 Yes 40mg Take 40 mg U nivers 40 mg 2-10 by mouth ity of capsule 00:11: daily. [address] omeprazole 2018-09 Yes 40mg Take 40 mg U nivers 40 mg 2-10 by mouth ity of capsule 00:11: daily. [address] omeprazole 2018-09 Yes 40mg Take 40 mg U nivers 40 mg 2-10 by mouth ity of capsule 00:11: daily. [address] omeprazole 2018-09 Yes 40mg Take 40 mg U nivers 40 mg 2-10 by mouth ity of capsule 00:11: daily. [address] omeprazole 2018-09 Yes 40mg Take 40 mg U nivers 40 mg 2-10 by mouth ity of capsule 00:11: daily. [address] omeprazole 2018-09 Yes 40mg Take 40 mg U nivers 40 mg 2-10 by mouth ity of capsule 00:11: daily. [address] KCL 20 mEq 2018-09 Yes [id number] 40meq Take 2 Univers tablet 2-09 tablets by ity of 00:00: mouth [place] 00 daily. Medical Branch KCL 20 mEq 2018-09 Yes [id number] 40meq Take 2 Univers tablet 2-09 tablets by ity of 00:00: mouth [place] 00 daily. Medical Branch atorvastati 2018-09 Yes [id number] 20mg Take 1 Univers n 20 mg 2-09 tablet by ity of tablet 00:00: mouth at [place] [address] bedtime. Medical Branch metoprolol 2018-09 Yes [id number] 50mg Take 1 Univers succinate 2-09 tablet by ity o f XL 50 mg 24 00:00: mouth 2 [place] as hr tablet 00 (two) Medical times Branch daily. furosemide 2018-09 Yes [id number] 40mg Take 1 Univers 40 mg 2-09 tablet by ity of tablet 00:00: mouth [place] 00 every Medical morning Branch and evening. KCL 20 mEq 2018-09 Yes [id number] 40meq Take 2 Univers tablet 2-09 tablets by ity of 00:00: mouth [place] 00 daily. Medical Branch atorvastati 2018-09 Yes [id number] 20mg Take 1 Univers n 20 mg 2-09 tablet by ity of tablet 00:00: mouth at [place] 00 bedtime. Medical Branch metoprolol 2018-09 Yes [id number] 50mg Take 1 Univers succinate 2-09 tablet by ity o f XL 50 mg 24 00:00: mouth 2 [place] as hr tablet 00 (two) Medical times Branch daily. furosemide 2018-09 Yes [id number] 40mg Take 1 Univers 40 mg 2-09 tablet by ity of tablet 00:00: mouth [place] 00 every Medical morning Branch and evening. KCL 20 mEq 2018-09 Yes [id number] 40meq Take 2 Univers tablet 2-09 tablets by ity of 00:00: mouth [place] 00 daily. Medical Branch atorvastati 2018-09 Yes [id number] 20mg Take 1 Univers n 20 mg 2-09 tablet by ity of tablet 00:00: mouth at [place] 00 bedtime. Medical Branch metoprolol 2018-09 Yes [id number] 50mg Take 1 Univers succinate 2-09 tablet by ity o f XL 50 mg 24 00:00: mouth 2 [place] as hr tablet 00 (two) Medical times Branch daily. furosemide 2018-09 Yes [id number] 40mg Take 1 Univers 40 mg 2-09 tablet by ity of tablet 00:00: mouth [place] 00 every Medical morning Branch and evening. KCL 20 mEq 2018-09 Yes [id number] 40meq Take 2 Univers tablet 2-09 tablets by ity of 00:00: mouth [place] 00 daily. Medical Branch atorvastati 2018-09 Yes [id number] 20mg Take 1 Univers n 20 mg 2-09 tablet by ity of tablet 00:00: mouth at [place] 00 bedtime. Medical Branch metoprolol 2018-09 Yes [id number] 50mg Take 1 Univers succinate 2-09 tablet by ity o f XL 50 mg 24 00:00: mouth 2 [place] as hr tablet 00 (two) Medical times Branch daily. furosemide 2018-09 Yes [id number] 40mg Take 1 Univers 40 mg 2-09 tablet by ity of tablet 00:00: mouth [place] 00 every Medical morning Branch and evening. KCL 20 mEq 2018-09 Yes [id number] 40meq Take 2 Univers tablet 2-09 tablets by ity of 00:00: mouth [place] 00 daily. Medical Branch atorvastati 2018-09 Yes [id number] 20mg Take 1 Univers n 20 mg 2-09 tablet by ity of tablet 00:00: mouth at [place] 00 bedtime. Medical Branch metoprolol 2018-09 Yes [id number] 50mg Take 1 Univers succinate 2-09 tablet by ity o f XL 50 mg 24 00:00: mouth 2 [place] as hr tablet 00 (two) Medical times Branch daily. furosemide 2018-09 Yes [id number] 40mg Take 1 Univers 40 mg 2-09 tablet by ity of tablet 00:00: mouth [place] 00 every Medical morning Branch and evening. KCL 20 mEq 2018-09 Yes [id number] 40meq Take 2 Univers tablet 2-09 tablets by ity of 00:00: mouth [place] 00 daily. Medical Branch atorvastati 2018-09 Yes [id number] 20mg Take 1 Univers n 20 mg 2-09 tablet by ity of tablet 00:00: mouth at [place] 00 bedtime. Medical Branch metoprolol 2018-09 Yes [id number] 50mg Take 1 Univers succinate 2-09 tablet by ity o f XL 50 mg 24 00:00: mouth 2 [place] as hr tablet 00 (two) Medical times Branch daily. furosemide 2018-09 Yes [id number] 40mg Take 1 Univers 40 mg 2-09 tablet by ity of tablet 00:00: mouth [place] 00 every Medical morning Branch and evening. KCL 20 mEq 2018-09 Yes [id number] 40meq Take 2 Univers tablet 2-09 tablets by ity of 00:00: mouth [place] 00 daily. Medical Branch KCL 20 mEq 2018-09 Yes [id number] 40meq Take 2 Univers tablet 2-09 tablets by ity of 00:00: mouth [place] 00 daily. Medical Branch KCL 20 mEq 2018-09 Yes [id number] 40meq Take 2 Univers tablet 2-09 tablets by ity of 00:00: mouth [place] 00 daily. Medical Branch KCL 20 mEq 2018-09 Yes [id number] 40meq Take 2 Univers tablet 2-09 tablets by ity of 00:00: mouth [place] 00 daily. Medical Branch KCL 20 mEq 2018-09 Yes [id number] 40meq Take 2 Univers tablet 2-09 tablets by ity of 00:00: mouth [place] 00 daily. Medical Branch KCL 20 mEq 2018-09 Yes [id number] 40meq Take 2 Univers tablet 2-09 tablets by ity of 00:00: mouth [place] 00 daily. Medical Branch KCL 20 mEq 2018-09 Yes [id number] 40meq Take 2 Univers tablet 2-09 tablets by ity of 00:00: mouth [place] 00 daily. Medical Branch KCL 20 mEq 2018-09 Yes [id number] 40meq Take 2 Univers tablet 2-09 tablets by ity of 00:00: mouth [place] 00 daily. Medical Branch KCL 20 mEq 2018-09 Yes [id number] 40meq Take 2 Univers tablet 2-09 tablets by ity of 00:00: mouth [place] 00 daily. Medical Branch KCL 20 mEq 2018-09 Yes [id number] 40meq Take 2 Univers tablet 2-09 tablets by ity of 00:00: mouth [place] 00 daily. Medical Branch KCL 20 mEq 2018-09 Yes [id number] 40meq Take 2 Univers tablet 2-09 tablets by ity of 00:00: mouth [place] 00 daily. Medical Branch KCL 20 mEq 2018-09 Yes [id number] 40meq Take 2 Univers tablet 2-09 tablets by ity of 00:00: mouth [place] 00 daily. Medical Branch KCL 20 mEq 2018-09 Yes [id number] 40meq Take 2 Univers tablet 2-09 tablets by ity of 00:00: mouth [place] 00 daily. Medical Branch KCL 20 mEq 2018-09 Yes [id number] 40meq Take 2 Univers tablet 2-09 tablets by ity of 00:00: mouth [place] 00 daily. Medical Branch atorvastati 2018-09- No [id number] 20mg Take 1 Univers n 20 mg 10-28 tablet by ity of tablet 00:00: 00:00 mouth at [place] 00 :00 bedtime. Medical Branch metoprolol 2018-09- No [id number] 50mg Take 1 Univers succinate 2-05 22- tablet by ity of XL 50 mg 24 00:00: 00:00 mouth 2 [place] hr tablet 00 :00 (two) Medical times Branch daily. furosemide 2018-09- No [id number] 40mg Take 1 Univers 40 mg 2-09 [...] Until mL Discontinu ed, Routine ibuprofen Yes [id number] 600mg Take 1 U nivers 600 mg 5-31 tablet by ity of tablet 00:00: mouth [place] 00 every 8 Medical (eight) Branch hours as needed (PAIN). ibuprofen Yes [id number] 600mg Take 1 U nivers 600 mg 5-31 tablet by ity of tablet 00:00: mouth [place] 00 every 8 Medical (eight) Branch hours as needed (pain). ibuprofen 2019- No [id number] 600mg Take 1 Univers 600 mg 5-31 08-15 tablet by ity of tablet 00:00: 00:00 mouth [place] 00 :00 every 8 Medical (eight) Branch hours as needed (PAIN). ibuprofen 2019- No [id number] 600mg Take 1 Univers 600 mg 5-31 08-15 tablet by ity of tablet 00:00: 00:00 mouth [place] 00 :00 every 8 Medical (eight) Branch hours as needed (pain). magnesium Yes 400mg Take 1 Tab U nivers oxide 2-23 by mouth 3 ity of (MAG-OX 00:00: (three) [place] 400) 400 mg 00 times Medical tablet daily. Branch enalapril Yes [id number] 2.5mg Take 1 Tab Univers (VASOTEC) 2-23 [...] s tablet 00 Medical Branch furosemide Yes [id number] 40mg Take 1 Tab Univers (LASIX) 40 [...] Medical tablet daily. Branch enalapril 2019- No [id number] 2.5mg Take 1 Tab Univers (VASOTEC) 2- [...] 00 :00 Medical Branch furosemide 2019- No [id number] 40mg Take 1 Tab Univers (LASIX) 40 [...] by mouth ity of tablet 00:00: daily. [place] 00 Medical Branch ipratropium 2013-09 Yes .5mg [...] by mouth ity of tablet 00:00: daily. [place] [facility] ipratropium 2013-09 Yes .5mg Inhale [...] by mouth ity of tablet 00:00: daily. [place] [facility] ipratropium 2013-09 Yes .5mg Inhale [...] by mouth ity of tablet 00:00: daily. [place] [facility] ipratropium 2013-09 Yes .5mg Inhale [...] by mouth ity of tablet 00:00: daily. [place] [facility] ipratropium 2013-09 Yes .5mg Inhale [...] by mouth ity of tablet 00:00: daily. [place] [facility] ipratropium 2013-09 Yes .5mg Inhale [...] by mouth ity of tablet 00:00: daily. [place] [facility] ipratropium 2013-09 Yes .5mg Inhale [...] by mouth ity of tablet 00:00: daily. [place] [facility] ipratropium 2013-09 Yes .5mg Inhale [...] by mouth ity of tablet 00:00: daily. [place] [facility] ipratropium 2013-09 Yes .5mg Inhale [...] by mouth ity of tablet 00:00: daily. [place] [facility] ipratropium 2013-09 Yes .5mg Inhale [...] by mouth ity of tablet 00:00: daily. [place] [facility] ipratropium 2013-09 Yes .5mg Inhale [...] by mouth ity of tablet 00:00: daily. [place] [facility] ipratropium 2013-09 Yes .5mg Inhale [...] by mouth ity of tablet 00:00: daily. [place] [facility] ipratropium 2013-09 Yes .5mg Inhale [...] by mouth ity of tablet 00:00: daily. [place] [facility] ipratropium 2013-09 Yes .5mg Inhale [...] by mouth ity of tablet 00:00: daily. [place] [facility] ipratropium 2013-09 Yes .5mg Inhale [...] by mouth ity of tablet 00:00: daily. [place] [facility] ipratropium 2013-09 Yes .5mg Inhale [...] by mouth ity of tablet 00:00: daily. [place] [facility] ipratropium 2013-09 Yes .5mg Inhale [...] by mouth ity of tablet 00:00: daily. [place] [facility] ipratropium 2013-09 Yes .5mg Inhale [...] by mouth ity of tablet 00:00: daily. [place] [id number] Medical Branch ipratropium 2013-09 Yes .5mg Inhale 2.5 Univers (ATROVENT) 2-17 mL 4 ity of 0.02 % 00:00: (four) [place] nebulizer 00 times Medical solution daily. Branch levalbutero 2013-09 Yes .31mg Inhale Uni vers l (XOPENEX) 2-17 0.31 mg 3 ity of 0.31 mg/3 00:00: (three) [place] mL 00 times Medical nebulizer daily. Branch solution Immunizations Ordered Filled Immunization Date Status Comments [facility] Immunization Name Name SARS-COV-2 COVID-19 2020-11-23 Completed Unive rsity of MODERNA VACCINE 00:00:00 [facility] SARS-COV-2 COVID-19 2020-11-23 Completed Unive rsity of MODERNA VACCINE 00:00:00 [facility] SARS-COV-2 COVID-19 2020-11-23 Completed Unive rsity of MODERNA VACCINE 00:00:00 [facility] SARS-COV-2 COVID-19 2020-11-23 Completed Unive rsity of MODERNA VACCINE 00:00:00 [facility] SARS-COV-2 COVID-19 2020-11-23 Completed Unive rsity of MODERNA VACCINE 00:00:00 [facility] SARS-COV-2 COVID-19 2020-11-23 Completed Unive rsity of MODERNA VACCINE 00:00:00 [facility] SARS-COV-2 COVID-19 2020-11-23 Completed Unive rsity of MODERNA VACCINE 00:00:00 [facility] SARS-COV-2 COVID-19 2020-11-23 Completed Unive rsity of [...] Completed Unive rsity of MODERNA VACCINE 00:00:00 [facility] Branch SARS-COV-2 COVID-19 2020-10-26 Completed Unive rsity of MODERNA VACCINE 00:00:00 [facility] Branch SARS-COV-2 COVID-19 2020-10-26 Completed Unive rsity of MODERNA VACCINE 00:00:00 [facility] Branch Td 2019-02-16 Completed University of 00:00:00 [facility] Td 2019-02-16 Completed University of 00:00:00 [facility] Td 2019-02-16 Completed University of 00:00:00 [facility] Td 2019-02-16 Completed University of 00:00:00 [facility] Td 2019-02-16 Completed University of 00:00:00 [facility] Td 2019-02-16 Completed University of 00:00:00 [facility] Td 2019-02-16 Completed University of 00:00:00 [facility] Td 2019-02-16 Completed University of 00:00:00 [facility] Td 2019-02-16 Completed University of 00:00:00 [facility] Td 2019-02-16 Completed University of 00:00:00 [facility] Td 2019-02-16 Completed University of 00:00:00 [facility] Td 2019-02-16 Completed University of 00:00:00 [facility] Td 2019-02-16 Completed University of 00:00:00 [facility] Td 2019-02-16 Completed University of 00:00:00 [facility] Td 2019-02-16 Completed University of 00:00:00 [facility] Td 2019-02-16 Completed University of 00:00:00 [facility] Td 2019-02-16 Completed University of 00:00:00 [facility] Td 2019-02-16 Completed University of 00:00:00 [facility] Td 2019-02-16 Completed University of 00:00:00 [facility] Td 2019-02-16 Completed University of 00:00:00 [facility] Td 2019-02-16 Completed University of 00:00:00 [facility] Td 2019-02-16 Completed University of 00:00:00 [facility] Td 2019-02-16 Completed University of 00:00:00 [place] [facility] Pneumococcal 2014-09-05 Completed University o f Polysaccharide, 00:00:00 [place] Med ical PPSV23 (PNEUMOVAX) Branch Influenza Virus 2014-09-05 Completed Universit y of Vaccine Quad IM 3+ 00:00:[address] [facility] Pneumococcal 2014-09-05 Completed University o f Polysaccharide, 00:00:00 [place] Med ical PPSV23 (PNEUMOVAX) Branch Influenza Virus 2014-09-05 Completed Universit y of Vaccine Quad IM 3+ 00:00:[address] [facility] Pneumococcal 2014-09-05 Completed University o f Polysaccharide, 00:00:00 [place] Med ical PPSV23 (PNEUMOVAX) Branch Influenza Virus 2014-09-05 Completed Universit y of Vaccine Quad IM 3+ 00:00:[address] [facility] Pneumococcal 2014-09-05 Completed University o f Polysaccharide, 00:00:00 [place] Med ical PPSV23 (PNEUMOVAX) Branch Influenza Virus 2014-09-05 Completed Universit y of Vaccine Quad IM 3+ 00:00:[address] [facility] Pneumococcal 2014-09-05 Completed University o f Polysaccharide, 00:00:00 [place] Med ical PPSV23 (PNEUMOVAX) Branch Influenza Virus 2014-09-05 Completed Universit y of Vaccine Quad IM 3+ 00:00:[address] [facility] Pneumococcal 2014-09-05 Completed University o f Polysaccharide, 00:00:00 [place] Med ical PPSV23 (PNEUMOVAX) Branch Influenza Virus 2014-09-05 Completed Universit y of Vaccine Quad IM 3+ 00:00:[address] [facility] Pneumococcal 2014-09-05 Completed University o f Polysaccharide, 00:00:00 [place] Med ical PPSV23 (PNEUMOVAX) Branch Influenza Virus 2014-09-05 Completed Universit y of Vaccine Quad IM 3+ 00:00:[address] [facility] Pneumococcal 2014-09-05 Completed University o f Polysaccharide, 00:00:00 [place] Med ical PPSV23 (PNEUMOVAX) Branch Influenza Virus 2014-09-05 Completed Universit y of Vaccine Quad IM 3+ 00:00:[address] [facility] Pneumococcal 2014-09-05 Completed University o f Polysaccharide, 00:00:00 [place] Med ical PPSV23 (PNEUMOVAX) Branch Influenza Virus 2014-09-05 Completed Universit y of Vaccine Quad IM 3+ 00:00:[address] [facility] Pneumococcal 2014-09-05 Completed University o f Polysaccharide, 00:00:00 [place] Med ical PPSV23 (PNEUMOVAX) Branch Influenza Virus 2014-09-05 Completed Universit y of Vaccine Quad IM 3+ 00:00:[address] [facility] Pneumococcal 2014-09-05 Completed University o f Polysaccharide, 00:00:00 [place] Med ical PPSV23 (PNEUMOVAX) Branch Influenza Virus 2014-09-05 Completed Universit y of Vaccine Quad IM 3+ 00:00:[address] [facility] Pneumococcal 2014-09-05 Completed University o f Polysaccharide, 00:00:00 [place] Med ical PPSV23 (PNEUMOVAX) Branch Influenza Virus 2014-09-05 Completed Universit y of Vaccine Quad IM 3+ 00:00:[address] [facility] Pneumococcal 2014-09-05 Completed University o f Polysaccharide, 00:00:00 [place] Med ical PPSV23 (PNEUMOVAX) Branch Influenza Virus 2014-09-05 Completed Universit y of Vaccine Quad IM 3+ 00:00:[address] [facility] Pneumococcal 2014-09-05 Completed University o f Polysaccharide, 00:00:00 [place] Med ical PPSV23 (PNEUMOVAX) Branch Influenza Virus 2014-09-05 Completed Universit y of Vaccine Quad IM 3+ 00:00:00 [facility] Pneumococcal 2014-09-05 Completed University o f Polysaccharide, 00:00:00 [place] Med ical PPSV23 (PNEUMOVAX) Branch Influenza Virus 2014-09-05 Completed Universit y of Vaccine Quad IM 3+ 00:00:[address] [facility] Pneumococcal 2014-09-05 Completed University o f Polysaccharide, 00:00:00 [place] Med ical PPSV23 (PNEUMOVAX) Branch Influenza Virus 2014-09-05 Completed Universit y of Vaccine Quad IM 3+ 00:00:[address] [facility] Pneumococcal 2014-09-05 Completed University o f Polysaccharide, 00:00:00 [place] Med ical PPSV23 (PNEUMOVAX) Branch Influenza Virus 2014-09-05 Completed Universit y of Vaccine Quad IM 3+ 00:00:[address] [facility] Pneumococcal 2014-09-05 Completed University o f Polysaccharide, 00:00:00 [place] Med ical PPSV23 (PNEUMOVAX) Branch Influenza Virus 2014-09-05 Completed Universit y of Vaccine Quad IM 3+ 00:00:[address] [facility] Pneumococcal 2014-09-05 Completed University o f Polysaccharide, 00:00:00 [place] Med ical PPSV23 (PNEUMOVAX) Branch Influenza Virus 2014-09-05 Completed Universit y of Vaccine Quad IM 3+ 00:00:[address] [facility] Pneumococcal 2014-09-05 Completed University o f Polysaccharide, 00:00:00 [place] Med ical PPSV23 (PNEUMOVAX) Branch Influenza Virus 2014-09-05 Completed Universit y of Vaccine Quad IM 3+ 00:00:[address] [facility] Pneumococcal 2014-09-05 Completed University o f Polysaccharide, 00:00:00 [place] Med ical PPSV23 (PNEUMOVAX) Branch Influenza Virus 2014-09-05 Completed Universit y of Vaccine Quad IM 3+ 00:00:[address] [facility] Pneumococcal 2014-09-05 Completed University o f Polysaccharide, 00:00:00 [place] Med ical PPSV23 (PNEUMOVAX) Branch Influenza Virus 2014-09-05 Completed Universit y of Vaccine Quad IM 3+ 00:00:[address] [facility] Pneumococcal 2014-09-05 Completed University o f Polysaccharide, 00:00:00 [place] Med ical PPSV23 (PNEUMOVAX) Branch Influenza Virus 2014-09-05 Completed Universit y of Vaccine Quad IM 3+ 00:00:[address] [facility] Vital Signs Vital Name Observation Time Observation Value Comments Source Systolic blood 2020-12-29 15:24:00 96 mm[Hg] Univer sity of pressure [facility] Diastolic blood 2020-12-29 15:24:00 66 mm[Hg] Unive [facility] Heart rate 2020-12-29 15:24:00 71 /min [facility] Body temperature 2020-12-29 15:24:00 36.33 Tia [facility] weight 2020-12-29 15:24:00 72.576 kg [facility] BMI 2020-12-29 15:24:00 22.96 kg/m2 [facility] Oxygen saturation in 2020-12-29 15:24:00 95 /min [facility] Arterial blood by [facility] Pulse oximetry Branch Systolic blood 2020-12-18 19:07:00 117 mm[Hg] Univer sity of pressure [facility] Diastolic blood 2020-12-18 19:07:00 77 mm[Hg] Unive rsity of pressure [place] [facility] Heart rate 2020-12-18 19:07:00 77 /min [facility] [place] [facility] [place] Body temperature 2020-12-18 19:07:00 36.22 Tia Univ ersity of [place] [facility] Respiratory rate 2020-12-18 19:07:00 18 /min Univ ersity of [place] [facility] Body height 2020-12-18 19:07:00 177.8 cm Universi ty [facility] [place] [facility] Body weight 2020-12-18 19:07:00 73.211 kg [facility]i ty [facility] [place] [facility] BMI 2020-12-18 19:07:00 23.16 kg/m2 [facility]i ty [facility] [place] [facility] Systolic blood 2020-12-12 18:00:00 109 mm[Hg] Univer sity of pressure [place] [facility] Diastolic blood 2020-12-12 18:00:00 74 mm[Hg] Unive rsity of pressure [facility] Heart rate 2020-12-12 18:00:00 78 /min Universi ty [facility] [place] [facility] Respiratory rate 2020-12-12 18:00:00 20 /min Univ ersity of [place] [facility] Oxygen saturation in 2020-12-12 18:00:00 96 /min University of Arterial blood by [facility] Pulse oximetry [place] Body temperature 2020-12-12 16:33:00 37.28 Tia Univ ersity of [place] [facility] [place] Body height 2020-12-12 16:33:00 177.8 cm [facility]i ty [facility] [place] [facility] [place] Body weight 2020-12-12 16:33:00 70.308 kg [facility]i ty [facility] [place] [facility] BMI 2020-12-12 16:33:00 22.24 kg/m2 [facility] [place] [facility] Systolic blood 2020-12-08 18:55:00 125 mm[Hg] Univer sity of pressure [place] [facility] Diastolic blood 2020-12-08 18:55:00 82 mm[Hg] Unive rsity of pressure [place] [facility] Heart rate 2020-12-08 18:55:00 75 /min Universi ty of [place] [facility] Body temperature 2020-12-08 18:55:00 36.56 Tia Univ ersity of [facility] Branch Respiratory rate 2020-12-08 18:55:00 16 /min Univ ersity of [place] [facility] Body height 2020-12-08 18:55:00 177.8 cm Universi ty [facility] [place] [facility] Body weight 2020-12-08 18:55:00 73.12 kg [facility]i [facility] [place] [facility] BMI 2020-12-08 18:55:00 23.13 kg/m2 [facility] [place] [facility] Systolic blood 2019-05-04 04:21:00 127 mm[Hg] Univer sity of pressure [place] [facility] Diastolic blood 2019-05-04 04:21:00 86 mm[Hg] Unive rsity of pressure [place] [facility] Heart rate 2019-05-04 04:21:00 99 /min Universi ty [facility] [place] [facility] Respiratory rate 2019-05-04 04:21:00 26 /min Univ ersity of [place] [facility] Body height 2019-05-04 04:21:00 177.8 cm Universi ty [facility] [place] [facility] Body weight 2019-05-04 04:21:00 72.576 kg [facility]i [facility] [place] [facility] BMI 2019-05-04 04:21:00 22.96 kg/m2 [facility] [place] [facility] Oxygen saturation in 2019-05-04 04:21:00 99 /min University of Arterial blood by Yumber lucho Pulse oximetry Branch Systolic blood 2019-05-04 04:21:00 127 mm[Hg] Univer sity of pressure [place] [facility] Diastolic blood 2019-05-04 04:21:00 86 mm[Hg] Unive rsity of pressure [place] [facility] Heart rate 2019-05-04 04:21:00 99 /min Universi ty [facility] [place] [facility] Respiratory rate 2019-05-04 04:21:00 26 /min Univ ersity of [place] [facility] Body height 2019-05-04 04:21:00 177.8 cm Universi ty [facility] [place] [facility] Body weight 2019-05-04 04:21:00 72.576 kg Universi ty [facility] [place] [facility] BMI 2019-05-04 04:21:00 22.96 kg/m2 [facility]i [facility] [place] [facility] Oxygen saturation in 2019-05-04 04:21:00 99 /min University of Arterial blood by Y[facility] luch[facility] Pulse oximetry Branch Procedures Procedure Date / Time Performing Clinician Source Performed ASSIGNMENT OF BENEFITS 2021-05-20 19:26:54 Doctor Unassigned, No [facility] POCT URINALYSIS AUTO 2020-12-18 19:04:00 Halima Ahn [facility] CT ABDOMEN PELVIS W 2020-12-12 17:25:03 Francisca Narayan [facility] BASIC METABOLIC PANEL 2020-12-12 16:47:00 [facility]isc[facility] (NA, K, CL, CO2, Medical Branch GLUCOSE, BUN, CREATININE, [place]) CBC WITH DIFF 2020-12-12 16:47:00 Francisca Narayan [facility] URINALYSIS 2020-12-12 16:47:00 Francisca Narayan [facility] NOTICE OF PRIVACY 2020-12-12 16:28:57 Doctor Unassigned, No [facility] CONSENT/REFUSAL FOR 2020-12-12 16:28:23 Doctor Unassigned, No [facility] [place] [facility] POCT URINALYSIS AUTO 2020-12-08 18:56:00 Jeanette Milton [facility] CONSENT/REFUSAL FOR 2020-12-08 18:26:17 Doctor Unassigned, No [facility] ASSIGNMENT OF BENEFITS 2020-12-08 18:25:58 Doctor Unassigned, No [facility] AUTHORIZATION FOR 2020-02-20 05:01:00 Doctor Unassigned, No [facility] RELEASE OF [facility] NOTICE OF PRIVACY 2019-05-04 04:10:29 Doctor Unassigned, No [facility] CONSENT/REFUSAL FOR 2019-05-04 04:10:09 Doctor Unassigned, No [facility] [place] [facility] Encounters Start End Encounter Admission Attending Care Care Encounter Source Date/Time Date/Time Type Type Clinicians Facility Department ID 2021-07-19 Emergency [facility] [id number] [facility] 2021-05-22 2021-05-22 Telephone Violeta ALMENG [id number] Univers 00:00:00 00:00:00 Jeanette Tabares [id number] ity [id number] [phone] [facility] 204 [facility] 2021-05-20 2021-05-20 [employer] T[employer] Anshu Macedo Lab Main [facility] [id number] Univers 14:28:38 14:43:38 Visit Halima Ahn [id number] [place]y [id number] [phone] [facility] 353 [facility] 2021-05-20 2021-05-20 Outpatient R [facility] [id number] Univers 14:30:00 14:30:00 [id number] ity [facility] [place] 2021-05-20 2021-05-20 Outpatient R [facility] [id number] Univers 14:30:00 14:30:00 HALIMA ity [facility] [place] 2021-05-20 2021-05-20 Orders Doctor ELDER [id number] Univers 00:00:00 00:00:00 Only Unassigned, ASHER [id number] ity of [place] [facility] [id number] [place] [phone] [address] 2021-05-20 2021-05-20 [facility] [id number] Univers 00:00:00 00:00:00 Halima Tabares [id number] i ty [id number] [phone] [facility] 204 [facility] 2021-01-01 2021-01-01 Outpatient R [facility] [id number] Univers 13:30:00 13:30:00 HALIMA [id number] ity [facility] [place] 2020-12-29 2020-12-29 [facility] [id number] Univers 10:12:45 11:07:51 Visit Halima Tabares [id number] i ty [id number] [phone] [address] 2020-12-29 2020-12-29 [facility] [id number] Univers 10:15:00 10:15:00 [facility] [id number] [facility] 2020-12-29 2020-12-[address] [facility] [id number] Univers 10:15:00 10:15:00 [facility] [place] [facility] 2020-12-18 2020-12-18 Office [facility] [id number] Univers 13:36:17 14:58:35 Visit Rm, Adc Surg Spec Procedure Raysa 3 [id number] ity [facility] [id number] [phone] [address] 2020-12-18 2020-12-18 [facility] [id number] [id number] Univers 14:00:00 14:00:00 [facility] [id number] [facility] 2020-12-18 2020-12-[address] [facility] [id number] Univers 14:00:00 14:00:00 [facility] [place] [facility] 2020-12-16 2020-12-16 Outpatient [facility] [id number] Univers 00:00:00 00:00:00 JEANETTE [id number] [facility] 2020-12-16 2020-12-16 [facility] [id number] Univers 00:00:00 00:00:00 [facility] 2020-12-16 2020-12-16 [facility] [id number] Univers 00:00:00 00:00:00 Jeanette Tabares [id number] [id number] [phone] [address] 2020-12-12 2020-12-12 [facility] [id number] Univers 11:36:00 13:42:00 Francisca Trina Tabares [id number] [id number] [phone] [facility] 084 [place] 2020-12-12 2020-12-12 Telephone [facility] [id number] Univers 00:00:00 00:00:00 Jeanette Tabares [id number] [id number] [phone] Pr dic[address] 2020-12-08 2020-12-08 Office [facility] [id number] Univers 13:28:10 14:09:14 Visit Jeanette Tabares [id number] [id number] [phone] Pr dic[address] 2020-12-08 2020-12-08 Outpatient R [facility] [id number] Univers 13:30:00 13:30:00 JEANETTE judge [facility] [place] 2020-12-08 2020-12-08 Orders Doctor ELDER [id number] Univers 00:00:00 00:00:00 Only Unassigned, ASHER 350.1.13.10 ity of [facility] 4.2.7.2.686 [place] as [phone] [facility] [address] [place] 2020-12-07 2020-12-07 Nurse ELDER Perez 1.2.840.114 [id number] Univers 00:00:00 00:00:00 Triage Herminia Chandler ASHER 350.1.13.10 ity of HOSPITAL 4.2.7.2.686 [place] as [phone] [facility] [address] [place] 2020-06-19 2020-06-19 Outpatient Pepper, HCAWU SURG [id number] [facility], [facility] 13:30:00 13:30:[id number] [facility] 2020-02-20 2020-02-20 Orders Doctor ELDER 1.2.840.114 [id number] 00:00:00 00:00:00 Only Unassigned, ASHER 350.1.13.10 [facility] 4.2.7.2.686 [id number] 009 2020-02-20 2020-02-20 Orders Doctor ELDER 1.2.840.114 [id number] Univers 00:00:00 00:00:00 Only Unassigned, ASHER 350.1.13.10 ity of [facility] 4.2.7.2.686 [place] as [phone] [address] 2019-08-28 2019-08-28 Emergency X JOEL [facility] ERT [id number] Univers 08:25:33 11:54:00 HERMINIA deepa [facility] 2019-08-24 2019-08-24 Emergency X SINGER [facility] ERT [id number] Univers 01:43:17 03:52:00 JOEL judge [facility] 2019-05-03 2019-05-04 [facility] 1.2.370.260 [id number] Univers 23:28:18 00:27:00 Rameshmariela Tabares 350.1.13.10 i ty of [place] 4.2.7.2.686 [facility] [phone] [address] 2019-05-03 2019-05-04 [facility] 1.2.317.147 [id number] 23:28:18 00:27:00 Ramesh Tabares 350.1.13.10 [place] 4.2.7.2.686 [place] [id number] [facility] 2019-05-03 2019-05-03 Orders Doctor ELDER 1.2.840.114 [id number] Univers 00:00:00 00:00:00 Only Unassigned, ASHER 350.1.13.10 ity of [facility] 4.2.7.2.686 [place] as [id number] [address] 2019-05-03 2019-05-03 Orders Doctor ELDER 1.2.840.114 [id number] 00:00:00 00:00:00 Only Unassigned, ASHER 350.1.13.10 [facility] 4.2.7.2.686 [id number] [id number] Results Test Description Test Time Test [...] U APPEAR (test code = 3267) clear [facility] URINALYSIS, [id number] 19:05:00 Test Item Value Reference Range Interpretation [...] U APPEAR (test code = clear 3267) [facility] [id number] 19:05:00 Test Item Value Reference Range Interpretation [...] U APPEAR (test code = clear 3267) [facility] [id number] 17:53:531. ?No hydronephrosis or nephrolithiasis. 2. ?Mild [...] hiatal hernia with mild circumferential distalesophageal thickening (2:16).[place] density within the distal stomach andat the [...] hernia with mild circumferential distalesophageal thickening (2:16). [place] density within the distal stomach andat the [...] small right hydrocele.5. Additional findings as above. [facility]38 Test Item Value Reference Range Interpretation Comments APPEARANCE (test code = Cloudy Clear A 1508824040) COLOR (test code = Red Yellow A 9766795878) PH (test code = 4.8-8.0 6990903836) SP GRAVITY (test code = 1.003-1.030 5508900688) GLU U QUAL (test code = 50 mg/dL Normal A 1424003487) BLOOD (test code = 3+ Negative A 9213058587) KETONES (test code = Negative Negative 6191321121) PROTEIN (test code = 100 mg/dL Negative A 2887-8) UROBILIN (test code = Normal Normal 6219865399) BILIRUBIN (test code = Negative Negative 7648297265) NITRITE (test code = Negative Negative 6914061153) LEUK DIANELYS (test code = Negative Negative 5584098119) RBC/HPF (test code = >182 See_Comment H [Autom ated message] 0761252529) The system [employer] generated this result transmit anirudh reference range : 0 - 3 HPF. The refe rence range was not u sed to interpret th is result as normal/abnormal . WBC/HPF (test code = >182 See_Comment H [Autom ated message] 8711948058) The system [employer] generated this result transmit anirudh reference range : 0 - 5 HPF. The refe rence range was not u sed to interpret th is result as normal/abnormal . BACTERIA (test code = Moderate Negative A 1317504948) WBC CLUMPS (test code = See_Comment H [Au tomated message] 0664089475) The system [employer] generated this result transmit anirudh reference range : <=1 HPF. The refere nce range was not u sed to interpret th is result as normal/abnormal . Lab Interpretation (test Abnormal code = 31414-4) [facility] Metabolic Panel (NA, K, CL, CO2, GLUCOSE, BUN, CREATININE, CA)2020-12-12 17:13:57 Test Item Value Reference Range Interpretation Comments NA (test code = 140 mmol/L 135-145 4969024014) K (test code = 4.5 mmol/L 3.5-5.0 8877576999) CL (test code = 100 mmol/L 98-108 5359939746) CO2 TOTAL (test code = 35 mmol/L 23-31 H 8692869828) AGAP (test code = 2-16 9024936888) BUN (test code = 25 mg/dL 7-23 H 2683186105) GLUCOSE (test code = 114 mg/dL 70-110 H 9421404221) CREATININE (test code = 1.18 mg/dL 0.60-1.25 9134581483) CALCIUM (test code = 9.0 mg/dL 8.6-10.6 7019365892) eGFR Calculation mL/min/1.73m2 (Non-) (test code = 7014011312) eGFR Calculation mL/min/1.73m2 () (test code = 8086017735) OMAYRA (test code = OMAYRA) Association of [...] tests). Lab Interpretation Abnormal (test code = 10857-1) [facility] with [id number] 16:56:10 Test Item Value Reference Range Interpretation Comments WBC (test code = See_Comment [Automated 2790-2) message] The sy stem which generated this result transmitted reference range : 4.20 - 10.70 10*3/?L. The reference range was not used to interpret this result as normal/abnormal . RBC (test code = See_Comment [Automated 889-8) message] The sy stem which generated this [...] RDW-SD (test code = 42.9 fL 38.5-51.6 33852-9) RDW-CV (test code = 11.9 % 12.1-15.4 L 788-0) PLT (test code = See_Comment [Automated 777-3) message] The sy stem which generated this result transmitted reference range : 150 - 328 10*3/ ?L. The reference r pasquale was not used to interpret this result as normal/abnormal . MPV (test code = 10.8 fL 9.8-13.0 37361-8) NRBC/100 WBC (test See_Comment [Automat ed code = 5394233840) message] The system which generated this result transmitted reference range : 0.0 - 10.0 /100 WBCs. The refer ence range was not u sed to interpret th is result as normal/abnormal . NRBC x10^3 (test code <0.01 See_Comment [Auto mated = 2893409071) message] The s ystem which generated this result transmitted reference range : 10*3/?L. The reference range was not used to interpret this result as normal/abnormal . GRAN MAT (NEUT) % 63.5 % (test code = 770-8) IMM GRAN % (test code 0.40 % = 5803748268) LYMPH % (test code = 23.9 % 736-9) MONO % (test code = 6.7 % 5905-5) EOS % (test code = 4.3 % 713-8) BASO % (test code = 1.2 % 706-2) GRAN MAT x10^3(ANC) 4.27 10*3/uL 1.99-6.95 (test code = 5957483504) IMM GRAN x10^3 (test 0.03 10*3/uL 0.00-0.06 code = 1362152311) LYMPH x10^3 (test code 1.61 10*3/uL 1.09-3.23 = 731-0) MONO x10^3 (test code 0.45 10*3/uL 0.36-1.02 = 742-7) EOS x10^3 (test code = 0.29 10*3/uL 0.06-0.53 711-2) BASO x10^3 (test code 0.08 10*3/uL 0.01-0.09 = 704-7) Lab Interpretation Abnormal (test code = 23566-1) [facility] URINALYSIS, [id number] 18:56:00 Test Item Value Reference Range Interpretation [...] 3267) Lab Interpretation (test code Abnormal = 07252-0) [facility] [id number] 18:56:00 Test Item Value Reference Range Interpretation [...] 3267) Lab Interpretation (test code Abnormal = 59353-6) [facility] [id number] 16:22:00 Patient Name: THIERRY OSUNA Unit No: [id number] EXAMS: CPT CODE: [id number] XR CHEST 1V 96371 EXAMINATION: - XR CHEST 1V. LOCATION: B2. HISTORY: S/P ICD. COMPARISON: None. TECHNIQUE: Single AP view of the chest wasobtained. FINDINGS: The right lung apex is excluded from the aifbd-dd-pcof. The heart is normal in size. Left AICD device is present. The lungs are clear. No acute osseous abnormality is identified. IMPRESSION: The right lung apex isexcluded from the rlgbm-zc-rmwv. No acute cardiopulmonary abnormality is identified. at 1622 Reportedand signed by: Latanya Marshall MD CC: Tyrell Mckeon Technologist: JOSELYN Mathews, RT(R) Transcrpt Date/Tm/Trnsp: 06/19/2020 (1622) t.SDR.PR7 Orig Print D/T: S: 06/19/2020 (9635) [facility] NAME: THIERRY OSUNA [address] PHYS: [place] [address] : 1960 AGE: 59 SEX: M LOC: Z.354 A PHONE #: [phone] EXAM DATE: 06/19/2020 STATUS: ADM IN FAX #: [phone] RADIOLOGY NO: PAGE 1 Signed ReportBASIC METABOLIC [id number] 13:17:00 Test Item Value Reference Range Interpretation [...] code = MG/DL 8.7-9.7 CA) Comments to Watch Inspector Final Movement: NURSE WILL BRING SPECIMEN TO LABIs this a LINE draw? N [id number] 13:17:00 Test Item Value Reference Range Interpretation Comments MAGNESIUM (test code = MAG) MG/DL 1.6-2.3 Comments to Watch Inspector Final Movement: NURSE WILL BRING SPECIMEN TO LABIs this a LINE draw? N BASIC METABOLIC [id number] 13:17:00 Test Item Value Reference Range Interpretation [...] 9.1 MG/DL 8.4-10.2 N CA) Comments to Watch Inspector Final Movement: NURSE WILL BRING SPECIMEN TO LABIs this a LINE draw? N [id number] 13:17:00 Test Item Value Reference Range Interpretation Comments MAGNESIUM (test code = MAG) 2.2 MG/DL 1.6-2.3 N Comments to Watch Inspector Final Movement: NURSE WILL BRING SPECIMEN TO LABIs this a LINE draw? N BASIC METABOLIC [id number] 13:16:00 Test Item Value Reference Range Interpretation [...] code = MG/DL 8.7-9.7 CA) Comments to Watch Inspector Final Movement: NURSE WILL BRING SPECIMEN TO LABIs this a LINE draw? N [id number] 13:16:00 Test Item Value Reference Range Interpretation Comments MAGNESIUM (test code = MAG) MG/DL 1.6-2.3 Comments to Watch Inspector Final Movement: NURSE WILL BRING SPECIMEN TO LABIs this a LINE draw? N BASIC METABOLIC [id number] 13:14:00 Test Item Value Reference Range Interpretation [...] code = CA) MG/DL 8.7-9.7 Comments to Watch Inspector Final Movement: NURSE WILL BRING SPECIMEN TO LABIs this a LINE draw? N [id number] 13:14:00 Test Item Value Reference Range Interpretation Comments MAGNESIUM (test code = MAG) MG/DL 1.6-2.3 Comments to Watch Inspector Final Movement: NURSE WILL BRING SPECIMEN TO LABIs this a LINE draw? N BASIC METABOLIC [id number] 13:13:00 Test Item Value Reference Range Interpretation [...] code = CA) MG/DL 8.7-9.7 Comments to Watch Inspector Final Movement: NURSE WILL BRING SPECIMEN TO LABIs this a LINE draw? N [id number] 13:13:00 Test Item Value Reference Range Interpretation Comments MAGNESIUM (test code = MAG) MG/DL 1.6-2.3 Comments to Watch Inspector Final Movement: NURSE WILL BRING SPECIMEN TO LABIs this a LINE draw? N PROTHROMBIN [id number] 13:08:00 Test Item Value Reference Range Interpretation [...] lynette embolism. 3.0 - 4.5 Comments to Watch Inspector Final Movement: NURSE WILL BRING SPECIMEN TO LABPTT ACTIVATED 2020-06-19 13:08:00 Test Item Value Reference Range Interpretation Comments PTT ACTIVATED (test code = APTT) 30.8 SECONDS 25.1-36.5 N Comments to Watch Inspector Final Movement: NURSE WILL BRING SPECIMEN TO LABCBC W/AUTO [...] 0.00 K/mm3 0.0-0.1 N NRBC#) Comments to Watch Inspector Final Movement: NURSE WILL BRING SPECIMEN TO LABIs this a LINE draw? N COVID 19 Asymptomatic IH [id number] 12:14:00 Test Item Value Reference Range Interpretation [...]
[2021-12-22] MEDS ORDERED: ONDANSETRON 4 MG/2 ML VIAL ONE (10:17)
[2021-12-22] MEDS ORDERED: NA CHLORIDE 0.9% 1,000 ML ONE (10:17)
[2021-12-22 10:35] LABS: ALT/SGPT 12 U/L (12-78); Albumin 3.3 g/dL (3.4-5.0); Alkaline Phosphatase 81 U/L (45-117); BUN Blood Urea Nitrogen 28 mg/dL (7-18); Bicarbonate 30 mmol/L (21-32); Bilirubin Total 0.7 mg/dL (0.2-1.0); Glucose Level 94 mg/dL (74-106); Lipase 51 U/L (73-393); Potassium 4.5 mmol/L (3.5-5.1); Protein, Total 7.4 g/dL (6.4-8.2); Sodium Level 130 mmol/L (136-145)
[2021-12-22 10:36] LABS: AST/SGOT < 3 U/L (15-37)
[2021-12-22] MEDS ORDERED: ALBUTEROL 2.5 MG/3 ML NEB SOL ONE (11:57)
[2021-12-22] MEDS ORDERED: IPRATROPIUM BROM 0.5MG/2.5ML ONE (11:57)
--- NOTE | 2021-12-22 12:49 | ER ---
Nurse's Notes [facility] Name: Juan C Monge Age: 61 yrs Sex: Male : 1960 Arrival Date: 12/22/2021 Time: 09:19 Bed 23 Private MD: Luís Ramirez H Diagnosis: Abdominal pain, Generalized;COPD/ Chronic obstructive pulmonary disease, unspecified Presentation: 12/22 09:32 Chief complaint: Patient states: he is here for further evaluation from Tuesday's visit ap3 when he was diagnosed with "fatty tissue that was twisted", and he was informed at discharge that if he felt worse or got sick, to come back for further evaluation. Patient reports having continued abdominal pain, and this morning vomited X's 2. Coronavirus screen: At this time, the client does not indicate any symptoms associated with coronavirus-19. Ebola Screen: No symptoms or risks identified at this time. Initial Sepsis Screen: Does the patient meet any 2 criteria? No. Patient's initial sepsis screen is negative. Does the patient have a suspected source of infection? No. Patient's initial sepsis screen is negative. Risk Assessment: Do you want to hurt yourself or someone else? Patient reports no desire to harm self or others. Onset of symptoms was December 18, 2021. 09:32 Method Of Arrival: Ambulatory ap3 09:32 Acuity: JESSI 3 ap3 14:32 Acuity: JESSI 2 iw Triage Assessment: 09:38 General: Appears in no apparent distress. Behavior is calm, cooperative, appropriate ap3 for age. Pain: Complains of pain in abdomen Pain currently is 5 out of 10 on a pain scale. at worst was 7 out of 10 on a pain scale. Pain began 2-3 days ago. Neuro: Level of Consciousness is awake, alert, obeys commands, Oriented to person, place, time, situation, Appropriate for age Gait is steady, Speech is normal. Cardiovascular: Patient's skin is warm and dry. Respiratory: Airway is patent Respiratory effort is even, unlabored, patient placed on 2liters NC due to low 02 on arrival. SPO2 increased from 88% on room air to 97% on 2 liters. GI: Reports lower abdominal pain, upper abdominal pain, nausea, vomiting. Historical: - Allergies: 09:35 No Known Allergies; ap3 - Home Meds: 09:35 omeprazole 20 mg Oral cpDR 1 cap once daily [Active]; benazepril 10 mg Oral tab 1 tab ap3 once daily [Active]; - PMHx: 09:35 Atrial Fib; COPD; CVA; Hyperlipidemia; Hypertension; Myocardial infarction; skull ap3 fracture; - Immunization history:: Client reports receiving the 2nd dose of the Covid vaccine, Flu vaccine is up to date. - Social history:: Smoking status: Patient/guardian denies using tobacco, the patient reports quitting approximately 2 years ago. Screenin:39 Abuse screen: Denies threats or abuse. Nutritional screening: No deficits noted. ap3 Tuberculosis screening: No symptoms or risk factors identified. Fall Risk None identified. Assessment: 09:45 General: Appears in no apparent distress. comfortable, Behavior is calm, cooperative. vg1 Pain: Complains of pain in right upper quadrant Pain currently is 3 out of 10 on a pain scale. Pain began 2-3 days ago. Neuro: Level of Consciousness is awake, alert, obeys commands, Oriented to person, place, time, situation. Cardiovascular: Patient's skin is warm and dry. Respiratory: Airway is patent Respiratory effort is even, unlabored. GI: Abdomen is round non-distended, Reports nausea, vomiting, since this morning. : Reports 'dark urine' since Tuesday12/20/21. EENT: No signs and/or symptoms were reported regarding the EENT system. Derm: No signs and/or symptoms reported regarding the dermatologic system. Musculoskeletal: Circulation, motion, and sensation intact. 10:45 Reassessment: Patient appears in no apparent distress at this time. Patient and/or vg1 family updated on plan of care and expected duration. Pain level reassessed. Patient is alert, oriented x 3, equal unlabored respirations, skin warm/dry/pink. 11:24 Reassessment: Patient appears in no apparent distress at this time. No changes from vg1 previously documented assessment. Patient and/or family updated on plan of care and expected duration. Pain level reassessed. Patient is alert, oriented x 3, equal unlabored respirations, skin warm/dry/pink. 11:57 Reassessment: Upon assessment of pt, pt O2 was 86% RA; notified physician; received VO vg1 from DR Ribeiro to administer Nebulizer. Pt verbalized concern of O2 of 86% RA and stated " I dont want to go home if I cant keep my oxygen in the correct range, I dont have oxygen at home and Im feeling dizzy' Provider notified. 12:36 Reassessment: Patient appears in no apparent distress at this time. Patient and/or vg1 family updated on plan of care and expected duration. Pain level reassessed. Patient is alert, oriented x 3, equal unlabored respirations, skin warm/dry/pink. O2 at 97% RA after nebulizer treatment Patient states feeling better. 12:46 Reassessment: Pt O2 at 77% RA; O2 at 93% with 2L NC; provider notified. vg1 13:44 Reassessment: Patient appears in no apparent distress at this time. No changes from vg1 previously documented assessment. Patient and/or family updated on plan of care and expected duration. Pain level reassessed. Patient is alert, oriented x 3, equal unlabored respirations, skin warm/dry/pink. Received VO from DR Ribeiro to remove pt from O2 and to monitor O2 sats. 14:08 Reassessment: Respiratory at bedside; ABG completed, pt O2 91% RA. vg1 14:52 Reassessment: Respiratory at bedside. vg1 Vital Signs: 09:32 BP 134 / 86; Pulse 81; Resp 19; Temp 98.1; Pulse Ox 88% on R/A; Weight 72.57 kg; Height ap3 5 ft. 10 in. (177.80 cm); Pain 4/10; 09:40 Pulse Ox 97% on 2 lpm NC; ap3 11:24 BP 115 / 65; Pulse 72; Resp 16; Pulse Ox 100% on R/A; vg1 12:37 BP 138 / 65; Pulse 74; Resp 20; Pulse Ox 97% ; vg1 12:47 Pulse Ox 93% on 2 lpm NC; vg1 13:45 BP 129 / 76; Pulse 76; Resp 20; Pulse Ox 97% on 2 lpm NC; vg1 09:32 Body Mass Index 22.96 (72.57 kg, 177.80 cm) ap3 09:32 patient placed on 2 liters NC and his SPO2 increased to 94%. Patient reports he has COPDap3 ED Course: 09:19 Patient arrived in ED. ds1 09:20 Luís Ramirez DO is Private Physician. ds1 09:35 Triage completed. ap3 09:39 Arm band placed on left wrist. ap3 09:41 Clementina Tristan, RN is Primary Nurse. vg1 09:42 Danyell Ribeiro MD is Attending Physician. sp3 09:45 Patient has correct armband on for positive identification. Bed in low position. Call vg1 light in reach. Side rails up X 1. 10:00 Initial lab(s) drawn, by me, sent to lab. Inserted saline lock: 22 gauge in left vg1 forearm, using aseptic technique. Blood collected. 13:41 XRAY Chest (1 view) In Process Unspecified. EDMS 14:[address] via stretcher. vg1 14:25 CT Chest For PE Angio In Process Unspecified. EDMS 15:44 No provider procedures requiring assistance completed. IV discontinued, intact, vg1 bleeding controlled, No redness/swelling at site. Pressure dressing applied. Administered Medications: 10:20 Drug: NS 0.9% 1000 ml Route: IV; Rate: 1 bolus; Site: left forearm; vg1 11:23 Follow up: IV Status: Completed infusion; IV Intake: 1000ml vg1 10:20 Drug: Zofran (Ondansetron) 4 mg Route: IVP; Site: left forearm; vg1 11:23 Follow up: Response: No adverse reaction; Marked relief of symptoms vg1 11:59 Drug: Albuterol - atroVENT (ipratropium) (3:1) (2.5 mg - 0.5 mg) 3 ml Route: Nebulizer; vg1 12:36 Follow up: Response: No adverse reaction vg1 Intake: 11:23 IV: 1000ml; Total: 1000ml. vg1 Outcome: 12:48 Discharge ordered by . sp3 15:02 Discharge ordered by MD. sp3 15:44 Discharged to home via wheelchair. vg1 15:44 Condition: good 15:44 Discharge instructions given to patient, Instructed on discharge instructions, follow up and referral plans. medication usage, Demonstrated understanding of instructions, follow-up care, medications, Prescriptions given X 1. 15:45 Patient left the ED. vg1 Signatures: Dispatcher [employer] EDCA DialMyrtle horton ds1 Patricia Narayan RN RN iw Kimberli Vyas RN RN ap3 Clementina Tristan, RN RN vg1 Danyell Ribeiro MD MD sp3 Corrections: (The following items were deleted from the chart) 12:00 11:57 Reassessment: Upon assessment of pt, pt O2 was 86% RA; notified physician; vg1 received VO to administer Nebulizer. vg1
--- NOTE | 2021-12-22 12:49 | EDPHYS ---
Physician Documentation [facility] Name: Juan C Monge Age: 61 yrs Sex: Male : 1960 Arrival Date: 12/22/2021 Time: 09:19 Bed 23 Private MD: Luís Ramirez H ED Physician Danyell Ribeiro HPI: 12/22 10:11 This 61 yrs old Male presents to ER via Ambulatory with complaints of Lower Abd Pain, sp3 Nausea/Vomiting. 10:11 61-year-old male with history of COPD, atrial fibrillation, hypertension, prior [place] sp3 presents to the ED for nausea and vomiting x2 which occurred this morning. First episode was water only, and second episode was food that he had eaten. Patient was seen 2 days ago and diagnosed with mild fatty stranding in the omental fat adjacent to the liver. Patient was discharged home with just observation and conservative care. Laboratory values at at that time were normal with exception of a mildly elevated creatinine. Patient today has no abdominal pain and comes in only because he was told to do so if he had emesis. No emesis while he has been in the ER. Denies chest pain, back pain, shortness of breath, diarrhea, fever, rash, extremity pain, neuro symptoms, any other signs or symptoms on ROS at this time.. Historical: - Allergies: 09:35 No Known Allergies; ap3 - Home Meds: 09:35 omeprazole 20 mg Oral cpDR 1 cap once daily [Active]; benazepril 10 mg Oral tab 1 tab ap3 once daily [Active]; - PMHx: 09:35 Atrial Fib; COPD; CVA; Hyperlipidemia; Hypertension; Myocardial infarction; skull ap3 fracture; - Immunization history:: Client reports receiving the 2nd dose of the Covid vaccine, Flu vaccine is up to date. - Social history:: Smoking status: Patient/guardian denies using tobacco, the patient reports quitting approximately 2 years ago. ROS: 10:13 Constitutional: Negative for fever, chills, and weight loss, Eyes: Negative for injury, sp3 pain, redness, and discharge, ENT: Negative for injury, pain, and discharge, Neck: Negative for injury, pain, and swelling, Cardiovascular: Negative for chest pain, palpitations, and edema, Respiratory: Negative for shortness of breath, cough, wheezing, and pleuritic chest pain, Back: Negative for injury and pain, MS/Extremity: Negative for injury and deformity, Skin: Negative for injury, rash, and discoloration, Neuro: Negative for headache, weakness, numbness, tingling, and seizure, Psych: Negative for depression, anxiety, suicide ideation, homicidal ideation, and hallucinations, Allergy/Immunology: Negative for hives, rash, and allergies, Endocrine: Negative for neck swelling, polydipsia, polyuria, polyphagia, and marked weight changes. 10:13 All other systems are negative. Exam: 10:15 Constitutional: This is a well developed, well nourished patient who is awake, alert, sp3 and in no acute distress. Head/Face: Normocephalic, atraumatic. Eyes: Pupils equal round and reactive to light, extra-ocular motions intact. Lids and lashes normal. Conjunctiva and sclera are non-icteric and not injected. Cornea within normal limits. Periorbital areas with no swelling, redness, or edema. Neck: Trachea midline, no thyromegaly or masses palpated, and no cervical lymphadenopathy. Supple, full range of motion without nuchal rigidity, or vertebral point tenderness. No Meningismus. Chest/axilla: Normal chest wall appearance and motion. Nontender with no deformity. No lesions are appreciated. Cardiovascular: Regular rate and rhythm with a normal S1 and S2. No gallops, murmurs, or rubs. Normal PMI, no JVD. No pulse deficits. Respiratory: Lungs have equal breath sounds bilaterally, clear to auscultation and percussion. No rales, rhonchi or wheezes noted. No increased work of breathing, no retractions or nasal flaring. Back: No spinal tenderness. No costovertebral tenderness. Full range of motion. Skin: Warm, dry with normal turgor. Normal color with no rashes, no lesions, and no evidence of cellulitis. MS/ Extremity: Pulses equal, no cyanosis. Neurovascular intact. Full, normal range of motion. Neuro: Awake and alert, GCS 15, oriented to person, place, time, and situation. Cranial nerves II-XII grossly intact. Motor strength 5/5 in all extremities. Sensory grossly intact. Cerebellar exam normal. Normal gait. Psych: Awake, alert, with orientation to person, place and time. Behavior, mood, and affect are within normal limits. 10:15 Abdomen/GI: Pain to the right lower and center area on deep palpation but otherwise no pain at rest. No peritoneal signs noted. Bowel sounds are normal.. Vital Signs: 09:32 BP 134 / 86; Pulse 81; Resp 19; Temp 98.1; Pulse Ox 88% on R/A; Weight 72.57 kg; Height ap3 5 ft. 10 in. (177.80 cm); Pain 4/10; 09:40 Pulse Ox 97% on 2 lpm NC; ap3 11:24 BP 115 / 65; Pulse 72; Resp 16; Pulse Ox 100% on R/A; vg1 12:37 BP 138 / 65; Pulse 74; Resp 20; Pulse Ox 97% ; vg1 12:47 Pulse Ox 93% on 2 lpm NC; vg1 13:45 BP 129 / 76; Pulse 76; Resp 20; Pulse Ox 97% on 2 lpm NC; vg1 09:32 Body Mass Index 22.96 (72.57 kg, 177.80 cm) ap3 09:32 patient placed on 2 liters NC and his SPO2 increased to 94%. Patient reports he has COPDap3 MDM: 10:16 Data reviewed: vital signs, nurses notes. ED course: 58-year-old male with nausea and sp3 vomiting which now appear to be resolved. We will administer Zofran and IV fluids and recheck blood work and compared to his results from 2 days ago. Repeat imaging is not indicated. Likely discharge if patient is able to tolerate p.o. challenge.. 12:46 ED course: Patient is feeling better and is able to tolerate p.o. challenge. He was sp3 having mild shortness of breath from his COPD and received a nebulizer treatment after which his symptoms are resolved. Patient has no clear indication for admission and we will discharge patient home at this time with a prescription for Zofran ODT.. 12:48 Patient medically screened. sp3 12:52 ED course: His passes p.o. challenge. Has progressively continued to get short of sp3 breath while he has been here. Room air pulse oxygenation is now in the low 80s therefore we will obtain chest x-ray and further evaluate this new onset of symptoms.. 15:00 ED course: CT scan reviewed which demonstrates severe COPD without evidence of clot or sp3 other abnormality. Upon further discussion with the patient patient does state that he has had episodes of the purple skin and hypoxia anytime he exerts himself at home over the last 2 months. Pulse ox at rest on room air is 95% or higher but did fall into the upper 80s to low 80s upon any exertion. I recommended to him that he follows up with his primary care physician and get evaluated for home oxygen to address his chronic COPD and underlying pulmonary condition. No acute emergency exist in the emergency department and patient has no admission criteria. Will discharge patient home to PCP follow-up.. 12/22 10:00 Order name: CMP; Complete Time: 11:17 sp3 12/22 10:00 Order name: Lipase; Complete Time: 11:17 sp3 12/22 13:00 Order name: XRAY Chest (1 view); Complete Time: 14:54 jd3 12/22 13:44 Order name: CT Chest For PE Angio; Complete Time: 14:54 sp3 12/22 10:00 Order name: IV Saline Lock; Complete Time: 10: sp3 12/22 10:00 Order name: Labs collected and sent; Complete Time: 10: sp3 12/22 11:27 Order name: PO challenge; Complete Time: 11:47 sp3 Administered Medications: 10:20 Drug: NS 0.9% 1000 ml Route: IV; Rate: 1 bolus; Site: left forearm; vg1 11:23 Follow up: IV Status: Completed infusion; IV Intake: 1000ml vg1 10:20 Drug: Zofran (Ondansetron) 4 mg Route: IVP; Site: left forearm; vg1 11:23 Follow up: Response: No adverse reaction; Marked relief of symptoms vg1 11:59 Drug: Albuterol - atroVENT (ipratropium) (3:1) (2.5 mg - 0.5 mg) 3 ml Route: Nebulizer; vg1 12:36 Follow up: Response: No adverse reaction vg1 Disposition Summary: 12/22/21 15:02 Discharge Ordered Location: Home(12/22/21 15:02) sp3 Condition: Stable(12/22/21 15:02) sp3 Diagnosis - Abdominal pain, Generalized sp3 - COPD/ Chronic obstructive pulmonary disease, unspecified sp3 Followup: sp3 - With: Private Physician - When: Upon discharge from the Emergency Department - Reason: Further diagnostic work-up, Recheck today's complaints, Continuance of care Discharge Instructions: - Discharge Summary Sheet sp3 - Abdominal Pain, Adult sp3 - COPD and Physical Activity sp3 Forms: - Medication Reconciliation Form sp3 - Thank You Letter sp3 - Antibiotic Education sp3 - Prescription Opioid Use sp3 Signatures: Dispatcher [employer] EDKimberli Cabrales RN RN ap3 Clementina Tristan RN RN vg1 Danyell Ribeiro MD MD sp3 Corrections: (The following items were deleted from the chart) 12:51 12:48 Vomiting, unspecified sp3 sp3 12:52 12:48 Home sp3 sp3 12:52 12:48 Stable sp3 sp3
--- NOTE | 2021-12-22 13:47 | RAD REPORT ---
EXAM DESCRIPTION: RAD - Chest Single View - 12/22/2021 1:39 pm CLINICAL HISTORY: DYSPNEA Chest pain. COMPARISON: Chest Pa And Lat (2 Views) dated 03/14/2018; Chest Single View dated 03/04/2018; CHEST PA AND LAT 2 VIEW dated 08/12/2014 FINDINGS: Portable technique limits examination quality. The lungs are emphysematous but grossly clear. The heart is normal in size. Single lead pacer/ defibr illator device. IMPRESSION: Moderate COPD.
--- NOTE | 2021-12-22 14:37 | RAD REPORT ---
EXAM DESCRIPTION: CT - Chest For Pe Angio - 12/22/2021 2:23 pm CLINICAL HISTORY: Chest pain. DYSPNEA COMPARISON: Thorax Wo Con dated 09/14/2019 TECHNIQUE: CT angiogram of the pulmonary arteries was performed with MIP. All CT scans are performed using dose optimization technique as appropriate and may include automated exposure control or mA/KV adjustment according to patient size. FINDINGS: No evidence of pulmonary thromboembolism. No acute aortic finding demonstrated. Advanced COPD is present. No significant pericardial or pleural fluid. No concerning bony finding. IMPRESSION: No evidence of pulmonary thromboembolism. Advanced COPD.
[2021-12-23 00:19] VITALS: TEMP 98.1
[2021-12-23 00:22] VITALS: BP 129/76; O2SAT 97
== END 2021-12-22 15:45 | disposition home or self-care (01) ==
LOC: ER 09:18
DX: R10.84 Generalized abdominal pain (principal); J44.9 Chronic obstructive pulmonary disease, unspecified; R11.2 Nausea with vomiting, unspecified; I10 Essential (primary) hypertension; I48.91 Unspecified atrial fibrillation; Z86.73 Personal history of transient ischemic attack (TIA), and cerebral infarction without residual deficits
CPT/HCPCS: 96361; 36415; 83690; 80053; 71275; 71045; 94640; 96374; 99285; Q9967; J7030; J2405

== ENCOUNTER 2022-01-01 23:16 | Emergency (ER) | payer OTHER ==
[2022-01-02] MEDS ORDERED: NA CHLORIDE 0.9% 1,000 ML ONE (00:54)
[2022-01-02 06:05] LABS: Albumin 3.6 g/dL (3.4-5.0); Bilirubin Total 0.5 mg/dL (0.2-1.0); Protein, Total 7.4 g/dL (6.4-8.2)
[2022-01-02 06:12] LABS: Absolute Lymphocytes (CBC) 1.6 K/uL (0.7-4.9); Hematocrit 40.7 % (39.6-49.0); Lymphocytes % 30.6 % (15.3-44.8); MPV 8.3 fL (7.6-11.3); RBC Red Blood Cell Count 4.46 M/uL (4.33-5.43)
[2022-01-02 06:14] LABS: Protime INR 1.5
--- NOTE | 2022-01-02 09:57 | RAD REPORT ---
EXAM DESCRIPTION: CT - Head angio - 01/02/2022 5:00 am CLINICAL HISTORY: 61 years, Male, BP UP AND DOWN W/ RIGHT EYE PROBLEMS COMPARISON: Previous CT scan of the head performed 03/13/2018, previous MRI performed 03/14/2018. TECHNIQUE: Multiple transaxial tomograms from the aortic arch through the brain were performed after administration of large bolus of IV contrast for complete opacification of the carotid arteries and intracranial vessels. Subsequent 2-D and 3-D multiplanar reformats, volume rendering technique and maximum intensity projec tion images were generated and reviewed. Stenosis measurements were performed according to NASCET cri teria. This exam was performed according to our departmental dose-optimization protocol, which includes auto mated exposure control, adjustment of the mA and/or kV according to patient size and/or use of iterat ermias reconstruction technique. FINDINGS: Ascending aorta: There is a normal branching pattern of the great vessels off the arch. Incidentally is noted the presence of the origin of the intervertebral artery from the aortic arch, a natomical variants. There are codominant vertebral arteries which demonstrate normal opacification. T here is minimal intimal aortic arch ossification. No great vessel origin stenosis is identified. Right carotid artery: Normal opacification is demonstrated within the right common carotid artery a nd at the carotid bifurcation. Minimal peripheral plaque within the right carotid bulb. No focal area s of significant stenosis. The proximal, mid and distal portions of the right internal carotid artery demonstrate to be patent. No evidence for stenosis and/or occlusion. Left carotid artery: Normal opacification is demonstrated within the left common carotid artery an d at the carotid bifurcation. Minimal peripheral plaque within the left carotid bulb. No focal areas of significant stenosis. The proximal, mid and distal portions of the left internal carotid artery de monstrate to be patent. No evidence for stenosis and/or occlusion. Intracranial circulation: Intracranial portions of the internal carotid arteries the cavernous sinus portions demonstrates to be within normal limits there is absent origin of the right A1 segment. Ther e is origin of the right PHILOSOPHY INSTRUCTOR. There is normal opacification within the anterior circulation wit hout evidence of intracranial aneurysm. The anterior cerebral arteries, middle cerebral arteries an d its branches demonstrate normal opacification with no evidence for significant stenosis aneurysm an d/or occlusion. There is normal venous drainage. Vertebrobasilar system: The posterior circulation demonstrate codominant bilateral vertebral arteries with no evidence for significant stenosis and/or evidence for significant dissection. There is origin of the right PHILOSOPHY INSTRUCTOR. Otherwise the vertebrobasilar system and PHILOSOPHY INSTRUCTOR demonstrate to be normal with no evidence for aneurysm and/or occlusion. Grossly the brain parenchyma demonstrate normal braswell-white matter differentiation with no evidence fo r mass effect and/or midline shift. There is no evidence for significant abnormal parenchymal enhance ment The skull base and intracranial structures demonstrate to be within normal limits. There is minimal m ucosal thickening of the posterior sphenoid sinuses. Lung apex: The lung apices demonstrate centrilobular and paraseptal emphysematous changes throughout the visualized portions. There is a pacemaker via left subclavian. IMPRESSION: No evidence for significant stenosis and/or occlusion involving the major intracranial a rterial vasculature. Absent origin of the right A1 segment with origin of the right PHILOSOPHY INSTRUCTOR. No significant stenosis cervical carotids. Minimal atheromatous plaque formation bilateral carotid bulbs. Centrilobular and paraseptal emphysematous changes throughout the visualized portions of the lung api megan. Minimal mucosal thickening of the posterior sphenoid sinuses. Electronically signed by: Abundio Dominguez MD 01/02/2022 2:33 AM CDT Due to temporary technical issues with the PACS/Fluency reporting system, reports are being signed by the in house radiologists without review as a courtesy to insure prompt reporting. The interpreting radiologist is fully responsible for the content of the report.
--- NOTE | 2022-01-02 10:49 | RAD REPORT ---
EXAM DESCRIPTION: CT - Neck Angio - 01/02/2022 5:01 am CLINICAL HISTORY: 61 years, Male, BP UP AND DOWN W/ RIGHT EYE PROBLEMS COMPARISON: Previous CT scan of the head performed 03/13/2018, previous MRI performed 03/14/2018. TECHNIQUE: Multiple transaxial tomograms from the aortic arch through the brain were performed after administration of large bolus of IV contrast for complete opacification of the carotid arteries and intracranial vessels. Subsequent 2-D and 3-D multiplanar reformats, volume rendering technique and maximum intensity projec tion images were generated and reviewed. Stenosis measurements were performed according to NASCET cri teria. This exam was performed according to our departmental dose-optimization protocol, which includes auto mated exposure control, adjustment of the mA and/or kV according to patient size and/or use of iterat ermias reconstruction technique. FINDINGS: Ascending aorta: There is a normal branching pattern of the great vessels off the arch. Incidentally is noted the presence of the origin of the intervertebral artery from the aortic arch, a natomical variants. There are codominant vertebral arteries which demonstrate normal opacification. T here is minimal intimal aortic arch ossification. No great vessel origin stenosis is identified. Right carotid artery: Normal opacification is demonstrated within the right common carotid artery a nd at the carotid bifurcation. Minimal peripheral plaque within the right carotid bulb. No focal area s of significant stenosis. The proximal, mid and distal portions of the right internal carotid artery demonstrate to be patent. No evidence for stenosis and/or occlusion. Left carotid artery: Normal opacification is demonstrated within the left common carotid artery an d at the carotid bifurcation. Minimal peripheral plaque within the left carotid bulb. No focal areas of significant stenosis. The proximal, mid and distal portions of the left internal carotid artery de monstrate to be patent. No evidence for stenosis and/or occlusion. Intracranial circulation: Intracranial portions of the internal carotid arteries the cavernous sinus portions demonstrates to be within normal limits there is absent origin of the right A1 segment. Ther e is origin of the right MARKETING SERVICES COORDINATOR. There is normal opacification within the anterior circulation wit hout evidence of intracranial aneurysm. The anterior cerebral arteries, middle cerebral arteries an d its branches demonstrate normal opacification with no evidence for significant stenosis aneurysm an d/or occlusion. There is normal venous drainage. Vertebrobasilar system: The posterior circulation demonstrate codominant bilateral vertebral arteries with no evidence for significant stenosis and/or evidence for significant dissection. There is origin of the right MARKETING SERVICES COORDINATOR. Otherwise the vertebrobasilar system and MARKETING SERVICES COORDINATOR demonstrate to be normal with no evidence for aneurysm and/or occlusion. Grossly the brain parenchyma demonstrate normal braswell-white matter differentiation with no evidence fo r mass effect and/or midline shift. There is no evidence for significant abnormal parenchymal enhance ment The skull base and intracranial structures demonstrate to be within normal limits. There is minimal m ucosal thickening of the posterior sphenoid sinuses. Lung apex: The lung apices demonstrate centrilobular and paraseptal emphysematous changes throughout the visualized portions. There is a pacemaker via left subclavian. IMPRESSION: No evidence for significant stenosis and/or occlusion involving the major intracranial a rterial vasculature. Absent origin of the right A1 segment with origin of the right MARKETING SERVICES COORDINATOR. No significant stenosis cervical carotids. Minimal atheromatous plaque formation bilateral carotid bulbs. Centrilobular and paraseptal emphysematous changes throughout the visualized portions of the lung api megan. Minimal mucosal thickening of the posterior sphenoid sinuses. Electronically signed by: Abundio Dominguez MD 01/02/2022 2:33 AM CDT Due to temporary technical issues with the PACS/Fluency reporting system, reports are being signed by the in house radiologists without review as a courtesy to insure prompt reporting. The interpreting radiologist is fully responsible for the content of the report.
--- NOTE | 2022-01-02 12:29 | RAD REPORT ---
EXAM DESCRIPTION: CT - Ct Stroke Brain Wo Cont - 01/02/2022 4:55 am CLINICAL HISTORY: 61 years Male BLOOD PRESSURE UP AND DOWN / RIGHT EYE VISUAL PROBLEMS TECHNIQUE: Axial noncontrast CT head with coronal and sagittal reformats. All CT scans at this [facility] use dose modulation, iterative reconstruction, and/or weight based dosing when appropriate to red uce radiation dose to as low as reasonably achievable. COMPARISON: 03/13/2018 FINDINGS: Brain: Unchanged irregular 3 cm hypodensity in the right parietal subcortical and deep whi te matter just above the atrium of the right lateral ventricle. Unchanged encephalomalacia in the rig ht anterior temporal pole. No obvious large acute territorial infarction. No intracranial hemorrhage, mass or midline shift. Ventricles: No hydrocephalus. Orbits: Unremarkable. Sinuses: Visualized portions are clear. Mastoid: Clear. Osseous: Unremarkable. Soft tissues: Unremarkable. IMPRESSION: 1. No acute CT abnormality. 2. Unchanged irregular 3 cm hypodensity in the right parietal subcortical and deep white matter just above the atrium of the right lateral ventricle. THIS REPORT CONTAINS FINDINGS THAT MAY BE CRITICAL TO PATIENT CARE: The findings were verbally discus sed via telephone conference with Genaro England MD on 01/02/2022 at 12:22 AM CDT. Electronically signed by: Avery Collado MD 01/02/2022 12:23 AM CDT Due to temporary technical issues with the PACS/Fluency reporting system, reports are being signed by the in house radiologists without review as a courtesy to insure prompt reporting. The interpreting radiologist is fully responsible for the content of the report.
--- NOTE | 2022-01-02 12:54 | EDPHYS ---
Physician Documentation [facility] Name: Juan C Monge Age: 61 yrs Sex: Male : 1960 Arrival Date: 01/01/2022 Time: 23:19 Bed 3 Private MD: ED Physician Genaro England HPI: 01/01 23:36 This 61 yrs old Male presents to ER via Unassigned with complaints of Loss Of rn Vision, Vision Problem, Blood Pressure Problem. 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 Onset: The symptoms/episode began/occurred 6 hour(s) ago. Associated signs and symptoms: Pertinent negatives: fever, headache, neck stiffness, seizure, syncope, double vision, weakness. Severity of symptoms: At their worst the symptoms were moderate in the emergency department the symptoms have improved. Current symptoms: visual disturbance, blurred vision. The patient has experienced a previous episode. The patient has not recently seen a physician. Reports last known normal was 1600 today, became aware of symptoms around 1800 after dinner. No trauma. No focal weakness/numbness. Reports vision getting better. States right eye blurred vision, central blurred vision, improving. . Historical: - Allergies: 01/02 00:27 No Known Allergies; as6 - Home Meds: 00:27 aspirin 81 mg Oral chew 1 tab once daily [Active]; Coreg 25 mg Oral tab 1 tab 2 times as6 per day [Active]; omeprazole 40 mg Oral cpDR 1 cap 2 times per day [Active]; buspirone 30 mg Oral tab 1 tab 2 times per day [Active]; potassium chloride 10 mEq Oral cpER 1 cap 2 times per day [Active]; benazepril 10 mg Oral tab 1 tab once daily [Active]; Xarelto 15 mg oral tab 1 tab once daily [Active]; hydrochlorothiazide 25 mg Oral tab 1 tab once daily [Active]; - PMHx: 00:27 Atrial Fib; COPD; CVA; Hyperlipidemia; Hypertension; Myocardial infarction; skull as6 fracture; - Immunization history:: Adult Immunizations unknown. - Social history:: Smoking status: unknown. - Family history:: not pertinent. - Hospitalizations: : No recent hospitalization is reported. ROS: 01/01 23:36 Constitutional: Negative for fever, chills, and weight loss, Eyes: Negative for injury, rn pain, redness, and discharge, Neck: Negative for injury, pain, and swelling, Cardiovascular: Negative for chest pain, palpitations, and edema, Respiratory: Negative for shortness of breath, cough, wheezing, and pleuritic chest pain, Abdomen/GI: Negative for abdominal pain, nausea, vomiting, diarrhea, and constipation, Back: Negative for injury and pain, MS/Extremity: Negative for injury and deformity, Skin: Negative for injury, rash, and discoloration, Neuro: Negative for headache, weakness, numbness, tingling, and seizure, + blurred vision right eye Exam: 23:36 Constitutional: This is a well developed, well nourished patient who is awake, alert, rn and in no acute distress. Head/Face: Normocephalic, atraumatic. Eyes: Pupils equal round and reactive to light, extra-ocular motions intact. Lids and lashes normal. Conjunctiva and sclera are non-icteric and not injected. Cornea within normal limits. Periorbital areas with no swelling, redness, or edema. Neck: Trachea midline, no thyromegaly or masses palpated, and no cervical lymphadenopathy. Supple, full range of motion without nuchal rigidity, or vertebral point tenderness. No Meningismus. Cardiovascular: Regular rate and rhythm. No pulse deficits. Respiratory: No increased work of breathing, no retractions or nasal flaring. Abdomen/GI: Soft, non-tender Skin: Warm, dry with normal turgor. Normal color with no rashes, no lesions, and no evidence of cellulitis. MS/ Extremity: Pulses equal, no cyanosis. Neurovascular intact. Full, normal range of motion. Equal circumference. Neuro: Awake and alert, GCS 15, oriented to person, place, time, and situation. Cranial nerves II-XII grossly intact. Motor strength 5/5 in all extremities. Sensory grossly intact. Cerebellar exam normal. Normal gait. Visual manriquez intact in all 4 quadrants but reports blurred vision. Vital Signs: 01/02 00:08 BP 144 / 81; Pulse 70; Resp 19 S; Temp 98.2; Pulse Ox 95% on R/A; Weight 77.11 kg (R); as6 Height 5 ft. 10 in. (177.80 cm) (R); Pain 0/10; 00:44 BP 146 / 71; Pulse 74; Resp 21 S; Pulse Ox 94% on R/A; as6 02:14 BP 122 / 75; Pulse 69; Resp 18 S; Pulse Ox 97% on R/A; as6 00:08 Body Mass Index 24.39 (77.11 kg, 177.80 cm) as6 NIH Stroke Scale Scores: 00:42 NIHSS Score: 0 as6 MDM: 01/01 23:29 Patient medically screened. rn 23:40 ED course: Last known normal around 1600, outside of tpa window.. rn 01/02 00:11 ED course: Pt states vision now back to normal. Already on xarelto. . rn 00:20 ED course: Radiologist called with CT head result, states no acute findings. . rn 02:44 Data reviewed: vital signs, nurses notes, lab test result(s), EKG, radiologic studies, rn CT scan, and as a result, I will discharge patient. Counseling: I had a detailed discussion with the patient and/or guardian regarding: the historical points, exam findings, and any diagnostic results supporting the discharge/admit diagnosis, lab results, radiology results, the need for outpatient follow up, to return to the emergency department if symptoms worsen or persist or if there are any questions or concerns that arise at home. Response to treatment: the patient's symptoms have resolved after treatment, the patient's condition has returned to base line, the patient is now symptom free, and as a result, I will discharge patient. Special discussion: I discussed with the patient/guardian in detail that at this point there is no indication for admission to the hospital. It is understood, however, that if the symptoms persist or worsen the patient needs to return immediately for re-evaluation. Based on the history and exam findings, there is no indication for further emergent testing or inpatient evaluation. I discussed with the patient/guardian the need to see the neurologist for further evaluation of the symptoms. I discussed with the patient/guardian the need to see the primary care provider for further evaluation of the symptoms. ED course: Pt completely back to baseline, CT angio head and neck without acute findings. Already on xarelto. Repeat neuro exam normal. Pt wants to go home and feels fine. Will f/u with pcp and neurology for BP medication management and return precautions given/understood.. 01/01 23:34 Order name: Accucheck; Complete Time: 00:07 rn 01/01 23:34 Order name: Cardiac monitoring; Complete Time: 00:07 rn 01/01 23:34 Order name: EKG - Nurse/Tech; Complete Time: 00:07 rn 01/01 23:34 Order name: IV Saline Lock; Complete Time: 00:07 rn 01/01 23:34 Order name: Labs collected and sent; Complete Time: 00:07 rn 01/01 23:34 Order name: NPO; Complete Time: 00:07 rn 01/01 23:34 Order name: O2 Per Protocol; Complete Time: 00:07 rn 01/01 23:34 Order name: O2 Sat Monitoring; Complete Time: 00:07 rn 01/01 23:34 Order name: Stroke Swallow Screen; Complete Time: 00:26 rn Administered Medications: 00:52 Drug: NS 0.9% 1000 ml Route: IV; Rate: 1000 ml; Site: right forearm; as6 02:57 Follow up: Response: No adverse reaction; IV Status: Completed infusion; IV Intake: as6 1000ml Disposition Summary: 01/02/22 02:48 Discharge Ordered Location: Home rn Problem: new rn Symptoms: are resolved rn Condition: Stable rn Diagnosis - Essential (primary) hypertension rn - Unspecified subjective visual disturbances rn Followup: rn - With: Private Physician - When: As needed - Reason: Recheck today's complaints, Re-evaluation by your physician Discharge Instructions: - Discharge Summary Sheet rn - Hypertension, Adult rn - Visual Disturbances rn - How to Take Your Blood Pressure, [id number] rn Forms: - Medication Reconciliation Form rn - Thank You Letter rn - Antibiotic prn physical therapist - Prescription Opioid Use rn NIH Stroke Scale - NIH Stroke Score Date: 01/02/2022 Time: 00:42 Total Score = 0 1a. Level of Consciousness (LOC) - 0(Alert) 1b. Level of Consciousness (LOC) (Month \T\ Age) - 0(Both) 1c. LOC Commands (Open \T\ Closes Eyes/Bookseamer Blindstitch) - 0(Both) 2. Best Gaze (Lateral Gaze Paresis) - 0(Normal) 3. Visual Field Loss - 0(No visual loss) 4. Facial Palsy - 0(Normal) 5a. Left Arm: Motor (10-second hold) - 0(No drift) 5b. Right Arm: Motor (10-second hold) - 0(No drift) 6a. Left Leg: Motor (5-second hold - always test supine) - 0(No drift) 6b. Right Leg: Motor (5-second hold - always test supine) - 0(No drift) 7. Limb Ataxia (finger/nose \T\ heel/rivera - test with eyes open) - 0(Absent) 8. Sensory Loss (pinprick arms/legs/face) - 0(Normal) 9. Best Language: Aphasia (description/naming/reading) - 0(No aphasia) 10. Dysarthria (speech clarity - read or repeat words) - 0(Normal) 11. Extinction and Inattention (visual/tactile/auditory/spatial/personal) - 0(No abnormality) Initials: as6 Signatures: Genaro England MD MD rn Slawson, Ashby, RN RN as6
--- NOTE | 2022-01-02 12:55 | ER ---
Nurse's Notes [facility] Name: Juan C Monge Age: 61 yrs Sex: Male : 1960 Arrival Date: 01/01/2022 Time: 23:19 Bed 3 Private MD: Diagnosis: Essential (primary) hypertension;Unspecified subjective visual disturbances Presentation: 01/02 00:08 Chief complaint: Patient states: "I was watching TV and I noticed I was having trouble as6 seeing out of my right eye, I've had a stroke before and I got scared so I came in". Coronavirus screen: At this time, the client does not indicate any symptoms associated with coronavirus-19. Ebola Screen: No symptoms or risks identified at this time. Initial Sepsis Screen: Does the patient meet any 2 criteria? No. Patient's initial sepsis screen is negative. Does the patient have a suspected source of infection? No. Patient's initial sepsis screen is negative. Risk Assessment: Do you want to hurt yourself or someone else? Patient reports no desire to harm self or others. Onset of symptoms was January 01, 2022. 00:08 Method Of Arrival: Ambulatory as6 00:08 Acuity: JESSI 3 as6 Historical: - Allergies: 00:27 No Known Allergies; as6 - Home Meds: 00:27 aspirin 81 mg Oral chew 1 tab once daily [Active]; Coreg 25 mg Oral tab 1 tab 2 times as6 per day [Active]; omeprazole 40 mg Oral cpDR 1 cap 2 times per day [Active]; buspirone 30 mg Oral tab 1 tab 2 times per day [Active]; potassium chloride 10 mEq Oral cpER 1 cap 2 times per day [Active]; benazepril 10 mg Oral tab 1 tab once daily [Active]; Xarelto 15 mg oral tab 1 tab once daily [Active]; hydrochlorothiazide 25 mg Oral tab 1 tab once daily [Active]; - PMHx: 00:27 Atrial Fib; COPD; CVA; Hyperlipidemia; Hypertension; Myocardial infarction; skull as6 fracture; - Immunization history:: Adult Immunizations unknown. - Social history:: Smoking status: unknown. - Family history:: not pertinent. - Hospitalizations: : No recent hospitalization is reported. Screenin:42 Abuse screen: Denies threats or abuse. Denies injuries from another. Nutritional as6 screening: No deficits noted. Tuberculosis screening: No symptoms or risk factors identified. The patient has not been NPO before screening. The patient is currently on the following diet: regular The patient is alert, able to follow commands. The patient does not exhibit slurred or garbled speech The patient is not exhibiting difficulty speaking. The patient does not exhibit difficulty understanding words. The patient is able to swallow own secretions with no drooling or need for suction. Patient tolerated one teaspoon of water. No drooling, immediate coughing, gurgling, or clearing of the throat was noted. The patient tolerated 90mL of water. No drooling, immediate coughing, gurgling, or clearing of the throat was noted. The patient passed the bedside swallow screening. Oral medications may be given as ordered. Contact Physician for further diet orders. Provider notified of bedside swallow screening results: Genaro England MD. Fall Risk None identified. Assessment: 01/01 23:50 General: Appears in no apparent distress. Behavior is calm, cooperative. Pain: Denies as6 pain. Neuro: Level of Consciousness is awake, alert, obeys commands, Oriented to person, place, time, situation. Cardiovascular: Capillary refill < 3 seconds Patient's skin is warm and dry. Respiratory: Airway is patent Trachea midline Respiratory effort is even, unlabored, Respiratory pattern is regular, symmetrical. Vital Signs: 01/02 00:08 BP 144 / 81; Pulse 70; Resp 19 S; Temp 98.2; Pulse Ox 95% on R/A; Weight 77.11 kg (R); as6 Height 5 ft. 10 in. (177.80 cm) (R); Pain 0/10; 00:44 BP 146 / 71; Pulse 74; Resp 21 S; Pulse Ox 94% on R/A; as6 02:14 BP 122 / 75; Pulse 69; Resp 18 S; Pulse Ox 97% on R/A; as6 00:08 Body Mass Index 24.39 (77.11 kg, 177.80 cm) as6 NIH Stroke Scale Scores: 00:42 NIHSS Score: 0 as6 ED Course: 01/01 23:19 Patient arrived in ED. bp1 23:29 Genaro England MD is Attending Physician. rn 23:37 Ashvin Forbes RN is Primary Nurse. as6 23:45 Inserted saline lock: 20 gauge in right forearm, using aseptic technique. Blood as6 collected. 01/02 00:00 Placed in gown. Bed in low position. Call light in reach. Side rails up X2. Cardiac as6 monitor on. Pulse ox on. NIBP on. 00:10 Triage completed. as6 00:34 Arm band placed on. as6 02:56 No provider procedures requiring assistance completed. IV discontinued, intact, as6 bleeding controlled, No redness/swelling at site. Pressure dressing applied. Administered Medications: 00:52 Drug: NS 0.9% 1000 ml Route: IV; Rate: 1000 ml; Site: right forearm; as6 02:57 Follow up: Response: No adverse reaction; IV Status: Completed infusion; IV Intake: as6 1000ml Intake: 02:57 IV: 1000ml; Total: 1000ml. as6 Outcome: 02:48 Discharge ordered by MD. rn 02:56 Discharged to home ambulatory. as6 02:56 Condition: stable 02:56 Discharge instructions given to patient, Instructed on discharge instructions, follow up and referral plans. Demonstrated understanding of instructions, follow-up care. 02:57 Patient left the ED. as6 NIH Stroke Scale - NIH Stroke Score Date: 01/02/2022 Time: 00:42 Total Score = 0 1a. Level of Consciousness (LOC) - 0(Alert) 1b. Level of Consciousness (LOC) (Month \\T\\ Age) - 0(Both) 1c. LOC Commands (Open \\T\\ Closes Eyes/Manufacturing Coordinator) - 0(Both) 2. Best Gaze (Lateral Gaze Paresis) - 0(Normal) 3. Visual Field Loss - 0(No visual loss) 4. Facial Palsy - 0(Normal) 5a. Left Arm: Motor (10-second hold) - 0(No drift) 5b. Right Arm: Motor (10-second hold) - 0(No drift) 6a. Left Leg: Motor (5-second hold - always test supine) - 0(No drift) 6b. Right Leg: Motor (5-second hold - always test supine) - 0(No drift) 7. Limb Ataxia (finger/nose \\T\\ heel/rivera - test with eyes open) - 0(Absent) 8. Sensory Loss (pinprick arms/legs/face) - 0(Normal) 9. Best Language: Aphasia (description/naming/reading) - 0(No aphasia) 10. Dysarthria (speech clarity - read or repeat words) - 0(Normal) 11. Extinction and Inattention (visual/tactile/auditory/spatial/personal) - 0(No abnormality) Initials: as6 Signatures: Genaro England MD MD rn Paniauga, Brittany bp1 Slawson, Ashby, RN RN as6
[2022-01-02 13:35] VITALS: TEMP 98.2
[2022-01-02 13:38] VITALS: BP 122/75; O2SAT 97
== END 2022-01-02 02:57 | disposition home or self-care (01) ==
LOC: ER 23:16
DX: I10 Essential (primary) hypertension (principal); I48.91 Unspecified atrial fibrillation; J44.9 Chronic obstructive pulmonary disease, unspecified; E78.5 Hyperlipidemia, unspecified; Z79.01 Long term (current) use of anticoagulants; Z79.82 Long term (current) use of aspirin
CPT/HCPCS: 96361; 85025; 36415; 85610; 85730; 83690; 80053; 70496; 70498; 70450; 96360; 99284; Q9967; J7030

== ENCOUNTER 2022-09-12 06:56 | Emergency (ER) | payer OTHER ==
--- OUTSIDE RECORDS SUMMARY | 2022-09-12 07:06 | XMS REPORT | Continuity of Care Document ---
:1960 Author Organization [facility] t Address [address] [place] [place] [address] Care Team Providers Name Role Phone EMMY TANGZoJOANNE Primary Care Physician Unavailable Jeanette Weaver Attending Clinician [facility] Attending Clinician Unavailable Halima Ahn MD Attending Clinician HALIMA AHN Attending Clinician Unavailable Doctor Unassigned, [place] Attending Clinician Unavailable , [facility] S[facility] Spec Procedure Attending Clinician Unavailable JEANETTE MCDANIEL Attending Clinician Unavailable Francisca Narayan DO Attending Clinician Chris ZAMORA, Herminia S Attending Clinician Unavailable Tyrell Mckeon Attending Clinician Unavailable HERMINIA MALDONADO Attending Clinician Unavailable JOEL HONG Attending Clinician Unavailable Ramesh Brown Attending Clinician HERMINIA MALDONADO Admitting Clinician Unavailable SAUD SANDERS Admitting Clinician Unavailable Payers Payer Name Policy Type Policy Number Effective Date Expiration Date [facility] [id number] 2018 MEDICARE GOLD 00:00:00 Problems Condition Condition [...] chronic 2-08 ity of combined combined 00:00: [place] systolic systolic 00 Medica l and and [...] 2-09 it y of on on 00:00: [address] [place] Disease Active 2013-09 Univers (ventricul (ventricul 10-28 it y of ar ar 00:00: [place] tachycardi tachycardi 00 Me dical a) a) Branch Allergies, Adverse Reactions, Alerts Allergy Allergy Status Severity Reaction(s) Onset Inactive Treating Comm ents Source Name Type Date Date Clinician No Known DA Active U 2019-09 [facility] 00:00: [address] No Known DA Active U 2019-09 [facility] 00:00: [address] NO KNOWN Drug Active Univers ALLERGIE Class ity of S [facility] Social History Social Habit Start Date Stop Date Quantity Comments Source History [facility] University o f Alcohol Std Drinks [facility] History [facility] University o f Alcohol Binge [facility] Exposure to Not sure Andrew of SARS-CoV-2 (event) [facility] Cigarettes smoked 2020-12-29 2020-12-29 Univers ity of current (pack per 00:00:00 [facility] - Reported Branch Tobacco use and 2020-12-29 2020-12-29 Former user Univers ty of exposure 00:00:00 00:00:00 [facility] Alcohol intake 2020-12-29 2020-12-29 Current drinker Unive rsity of 00:00:00 00:00:00 of alcohol [facility] (finding) Branch History SDOH 2019-08-26 2019-08-26 5 University o f Alcohol Frequency 00:00:00 00:00:00 [facility] Alcohol Comment 2014-08-27 2014-08-27 8 drinks per day Uni versity of 00:00:00 00:00:00 [facility] Sex [birth year] Universit y of 00:00:00 00:00:00 [facility] Smoking Status Start Date Stop Date Source Current every day smoker 2020-12-29 00:00:00 Uni versity of [facility] Medications Ordered Filled Start Stop Current Ordering Indication Dosage Frequency Signature Comments Components Source Medication Medication Date Date Medication? Clinician (SIG) Name Name cephALEXin Yes [id number] 500mg Take 1 Univers (KEFLEX) 9 capsule by ity o f 500 mg 00:00: mouth 4 [place] capsule 00 (four) Medical times [place] daily. cephALEXin 0 Yes [id number] 500mg Take 1 Univers (KEFLEX) 9-03 capsule by ity o f 500 mg 00:00: mouth 4 [place] capsule 00 (four) Medical [facility] daily. cefTRIAXone 2020-0 2020- No 1000mg 1,000 mg, Univers (ROCEPHIN) 12-12 IV ity of 1,000 mg in 19:00: 18:23 Piggyback, [place] NaCl 0.9% 00 :00 ONCE, 1 Medical (NS) 50 mL dose, Fri Bran ch MINI-BAG 12/12/20 at 1400, 50 mL
Reas on for Anti-Infec tive: Empiric Therapy for Suspected Infection< br>Empiric Therapy Site: Urine
D uration of therapy: 72 hours carvediloL 0 Yes 25mg Take 25 mg U nivers 25 mg 3-26 by mouth 2 ity of tablet 18:38: (two) [address] daily with Branch meals. busPIRone 0 Yes 30mg Take 30 mg Un igor 30 mg 3-26 by mouth 2 ity of tablet 18:38: (two) [address] daily. Branch benazepriL 0 Yes 10mg Take 10 mg U nivers 10 mg 3-26 by mouth ity of tablet 18:38: daily. [address] hydroCHLORO 2020-0 Yes 25mg Take 25 mg Univers thiazide 25 3-26 by mouth ity of mg tablet 18:38: daily. [address] carvediloL 2020-0 Yes 25mg Take 25 mg U nivers 25 mg 3-26 by mouth 2 ity of tablet 18:38: (two) [address] daily with Branch meals. busPIRone 2020-0 Yes 30mg Take 30 mg Un igor 30 mg 3-26 by mouth 2 ity of tablet 18:38: (two) [address] daily. Branch benazepriL 2020-0 Yes 10mg Take 10 mg U nivers 10 mg 3-26 by mouth ity of tablet 18:38: daily. [address] hydroCHLORO 2020-0 Yes 25mg Take 25 mg Univers thiazide 25 3-26 by mouth ity of mg tablet 18:38: daily. [address] carvediloL 2021-0 Yes 25mg Take 25 mg U nivers 25 mg 3-26 by mouth 2 ity of tablet 18:38: (two) [place] [address] times Medical daily with Branch meals. busPIRone 2021-0 Yes 30mg Take 30 mg Un igor 30 mg 3-26 by mouth 2 ity of tablet 18:38: (two) [place] times Medical daily. Branch benazepriL 2021-0 Yes 10mg Take 10 mg U nivers 10 mg 3-26 by mouth ity of tablet 18:38: daily. [address] hydroCHLORO 1-0 Yes 25mg Take 25 mg Univers thiazide 25 3-26 by mouth ity of mg tablet 18:38: daily. [address] carvediloL 2021-0 Yes 25mg Take 25 mg U nivers 25 mg 3-26 by mouth 2 ity of tablet 18:38: (two) [place] [address] times Medical daily with Branch meals. busPIRone 2021-0 Yes 30mg Take 30 mg Un igor 30 mg 3-26 by mouth 2 ity of tablet 18:38: (two) [place] [address] times Medical daily. Branch benazepriL 2021-0 Yes 10mg Take 10 mg U nivers 10 mg 3-26 by mouth ity of tablet 18:38: daily. [address] hydroCHLORO 1-0 Yes 25mg Take 25 mg Univers thiazide 25 3-26 by mouth ity of mg tablet 18:38: daily. [address] carvediloL 2021-0 Yes 25mg Take 25 mg U nivers 25 mg 3-26 by mouth 2 ity of tablet 18:38: (two) [place] [address] times Medical daily with Branch meals. busPIRone 2021-0 Yes 30mg Take 30 mg Un igor 30 mg 3-26 by mouth 2 ity of tablet 18:38: (two) [place] [address] times Medical daily. Branch benazepriL 2021-0 Yes 10mg Take 10 mg U nivers 10 mg 3-26 by mouth ity of tablet 18:38: daily. [address] hydroCHLORO 2021-0 Yes 25mg Take 25 mg Univers thiazide 25 3-26 by mouth ity of mg tablet 18:38: daily. [address] carvediloL 2021-0 Yes 25mg Take 25 mg U nivers 25 mg 3-26 by mouth 2 ity of tablet 18:38: (two) [place] [address] times Medical daily with Branch meals. busPIRone 2021-0 Yes 30mg Take 30 mg Un igor 30 mg 3-26 by mouth 2 ity of tablet 18:38: (two) [place] 04 times Medical daily. Branch benazepriL 2021-0 Yes 10mg Take 10 mg U nivers 10 mg 3-26 by mouth ity of tablet 18:38: daily. [address] hydroCHLORO 2021-0 Yes 25mg Take 25 mg Univers thiazide 25 3-26 by mouth ity of mg tablet 18:38: daily. [address] carvediloL 2021-0 Yes 25mg Take 25 mg U nivers 25 mg 3-26 by mouth 2 ity of tablet 18:38: (two) [place] [address] times Medical daily with Branch meals. busPIRone 2021-0 Yes 30mg Take 30 mg Un igor 30 mg 3-26 by mouth 2 ity of tablet 18:38: (two) [place] [address] times Medical daily. Branch benazepriL 2021-0 Yes 10mg Take 10 mg U nivers 10 mg 3-26 by mouth ity of tablet 18:38: daily. [address] hydroCHLORO 1-0 Yes 25mg Take 25 mg Univers thiazide 25 3-26 by mouth ity of mg tablet 18:38: daily. [address] carvediloL 1-0 Yes 25mg Take 25 mg U nivers 25 mg 3-26 by mouth 2 ity of tablet 18:38: (two) [place] [address] times Medical daily with Branch meals. busPIRone 2021-0 Yes 30mg Take 30 mg Un igor 30 mg 3-26 by mouth 2 ity of tablet 18:38: (two) [place] 04 times Medical daily. Branch benazepriL 2021-0 Yes 10mg Take 10 mg U nivers 10 mg 3-26 by mouth ity of tablet 18:38: daily. [address] hydroCHLORO 2021-0 Yes 25mg Take 25 mg Univers thiazide 25 3-26 by mouth ity of mg tablet 18:38: daily. [address] carvediloL 2021-0 Yes 25mg Take 25 mg U nivers 25 mg 3-26 by mouth 2 ity of tablet 18:38: (two) [place] [address] times Medical daily with Branch meals. busPIRone 2021-0 Yes 30mg Take 30 mg Un igor 30 mg 3-26 by mouth 2 ity of tablet 18:38: (two) [place] 04 times Medical daily. Branch benazepriL 2021-0 Yes 10mg Take 10 mg U nivers 10 mg 3-26 by mouth ity of tablet 18:38: daily. [address] hydroCHLORO 2021-0 Yes 25mg Take 25 mg Univers thiazide 25 3-26 by mouth ity of mg tablet 18:38: daily. [address] carvediloL 2021-0 Yes 25mg Take 25 mg U nivers 25 mg 3-26 by mouth 2 ity of tablet 18:38: (two) [place] [address] times Medical daily with Branch meals. busPIRone 2021-0 Yes 30mg Take 30 mg Un [place] 30 mg 3-26 by mouth 2 ity of tablet 18:38: (two) [place] [address] times Medical daily. Branch benazepriL 2021-0 Yes 10mg Take 10 mg U nivers 10 mg 3-26 by mouth ity of tablet 18:38: daily. [address] hydroCHLORO 1-0 Yes 25mg Take 25 mg Univers thiazide 25 3-26 by mouth ity of mg tablet 18:38: daily. [address] carvediloL 2021-0 Yes 25mg Take 25 mg U nivers 25 mg 3-26 by mouth 2 ity of tablet 18:38: (two) [place] [address] times Medical daily with Branch meals. busPIRone 2021-0 Yes 30mg Take 30 mg Un igor 30 mg 3-26 by mouth 2 ity of tablet 18:38: (two) [place] 04 times Medical daily. Branch benazepriL 2021-0 Yes 10mg Take 10 mg U nivers 10 mg 3-26 by mouth ity of tablet 18:38: daily. [address] hydroCHLORO 2021-0 Yes 25mg Take 25 mg Univers thiazide 25 3-26 by mouth ity of mg tablet 18:38: daily. [address] carvediloL 2021-0 Yes 25mg Take 25 mg U nivers 25 mg 3-26 by mouth 2 ity of tablet 18:38: (two) [place] [address] times Medical daily with Branch meals. busPIRone 2021-0 Yes 30mg Take 30 mg Un igor 30 mg 3-26 by mouth 2 ity of tablet 18:38: (two) [place] times Medical daily. Branch benazepriL 2021-0 Yes 10mg Take 10 mg U nivers 10 mg 3-26 by mouth ity of tablet 18:38: daily. [address] hydroCHLORO 2021-0 Yes 25mg Take 25 mg Univers thiazide 25 3-26 by mouth ity of mg tablet 18:38: daily. [address] carvediloL 2021-0 Yes 25mg Take 25 mg U nivers 25 mg 3-26 by mouth 2 ity of tablet 18:38: (two) [place] [address] times Medical daily with Branch meals. busPIRone 2021-0 Yes 30mg Take 30 mg Un igor 30 mg 3-26 by mouth 2 ity of tablet 18:38: (two) [place] [address] times Medical daily. Branch benazepriL 2021-0 Yes 10mg Take 10 mg U nivers 10 mg 3-26 by mouth ity of tablet 18:38: daily. [address] hydroCHLORO 1-0 Yes 25mg Take 25 mg Univers thiazide 25 3-26 by mouth ity of mg tablet 18:38: daily. [address] carvediloL 2021-0 Yes 25mg Take 25 mg U nivers 25 mg 3-26 by mouth 2 ity of tablet 18:38: (two) [place] [address] times Medical daily with Branch meals. busPIRone 2021-0 Yes 30mg Take 30 mg Un igor 30 mg 3-26 by mouth 2 ity of tablet 18:38: (two) [place] times Medical daily. Branch benazepriL 2021-0 Yes 10mg Take 10 mg U nivers 10 mg 3-26 by mouth ity of tablet 18:38: daily. [address] hydroCHLORO 2021-0 Yes 25mg Take 25 mg Univers thiazide 25 3-26 by mouth ity of mg tablet 18:38: daily. [address] carvediloL 2021-0 Yes 25mg Take 25 mg U nivers 25 mg 3-26 by mouth 2 ity of tablet 18:38: (two) [place] [address] times Medical daily with Branch meals. busPIRone 2021-0 Yes 30mg Take 30 mg Un igor 30 mg 12-12 by mouth 2 ity of tablet 18:38: (two) [place] 04 times Medical daily. Branch benazepriL Yes 10mg Take 10 mg U nivers 10 mg - by mouth ity of tablet 18:38: daily. [address] Branch hydroCHLORO 0 Yes 25mg Take 25 mg Univers thiazide 25 - by mouth ity of mg tablet 18:38: daily. [address] Branch iohexol 2020- No [id number] 120mL 120 mL, Univers (OMNIPAQUE 12-12 Intravenou it y of 350 17:30: 17:21 s, ONCE, 1 [place] BULK-150 00 :00 dose, Fri Medica l mL) 12/12/20 at [place] injection 1230, 120 mL Routine aspirin 81 2020- No 81mg Take 81 mg Univers mg EC 12-12 by mouth ity of tablet 16:57: 00:00 daily. [place] 40 :00 [facility] Branch varenicline 2020- No 1mg Take 1 mg Univers (CHANTIX) 1 12-12 by mouth 2 i ty of mg tablet 16:57: 00:00 (two) [place] 18 :00 times Medical daily. Branch predniSONE 2020- No 20mg Take 20 mg Univers 20 mg 12-12 by mouth ity of tablet 16:57: 00:00 daily. [place] 12 :00 [facility] Branch fluticasone 2020- No 1{puff} Inhale 1 Univers -umeclidin- 12-12 Puff ity of vilanter 16:56: 00:00 daily. [place] (TRELEGY 46 :00 Medical ELLIPTA) Branch 100-62.5-25 mcg DsDv cefpodoxime Yes [id number] 100mg Take 1 Univers 100 mg -26 tablet by ity of tablet 00:00: mouth 2 [place] 00 (two) Medical times [place] daily. cefpodoxime 0 Yes [id number] 100mg Take 1 Univers 100 mg -26 tablet by ity of tablet 00:00: mouth 2 [place] 00 (two) Medical times [place] daily. cefpodoxime 2021-0 Yes [id number] 100mg Take 1 Univers 100 mg 3-26 tablet by ity of tablet 00:00: mouth [place] (two) Medical times Branch daily. cefpodoxime 2021-0 Yes [id number] 100mg Take 1 Univers 100 mg 3-26 tablet by ity of tablet 00:00: mouth [place] (two) Medical times Branch daily. cefpodoxime 2021-0 Yes [id number] 100mg Take 1 Univers 100 mg 3-26 tablet by ity of tablet 00:00: mouth [place] (two) Medical times Branch daily. cefpodoxime 2021-0 Yes [id number] 100mg Take 1 Univers 100 mg 3-26 tablet by ity of tablet 00:00: mouth [place] (two) Medical times Branch daily. cefpodoxime 2021-0 Yes [id number] 100mg Take 1 Univers 100 mg 3-26 tablet by ity of tablet 00:00: mouth [place] (two) Medical times Branch daily. cefpodoxime 2021-0 Yes [id number] 100mg Take 1 Univers 100 mg 3-26 tablet by ity of tablet 00:00: mouth [place] (two) Medical times Branch daily. cefpodoxime 2021-0 Yes [id number] 100mg Take 1 Univers 100 mg 3-26 tablet by ity of tablet 00:00: mouth [place] (two) Medical times Branch daily. cefpodoxime 2021-0 Yes [id number] 100mg Take 1 Univers 100 mg 3-26 tablet by ity of tablet 00:00: mouth [place] (two) Medical times Branch daily. cefpodoxime 2021-0 Yes [id number] 100mg Take 1 Univers 100 mg 3-26 tablet by ity of tablet 00:00: mouth [place] (two) Medical times Branch daily. cefpodoxime 2021-0 Yes [id number] 100mg Take 1 Univers 100 mg 3-26 tablet by ity of tablet 00:00: mouth [place] (two) Medical times Branch daily. cefpodoxime 2021-0 Yes [id number] 100mg Take 1 Univers 100 mg 3-26 tablet by ity of tablet 00:00: mouth [place] (two) Medical times Branch daily. cefpodoxime 2021-0 Yes [id number] 100mg Take 1 Univers 100 mg 3-26 tablet by ity of tablet 00:00: mouth 2 [place] 00 (two) Medical times Branch daily. cefpodoxime 2020-0 Yes [id number] 100mg Take 1 Univers 100 mg 3-26 tablet by ity of tablet 00:00: mouth 2 [place] 00 (two) Medical times Branch daily. cefpodoxime 2020-0 1- No [id number] 100mg Take 1 Univers 100 mg 3-26 03-26 tablet by ity of tablet 00:00: 00:00 mouth 2 [place] 00 :00 (two) Medical times Branch daily for 7 days. XARELTO 15 2020-0 Yes Univers mg tablet -28 ity of 00:00: [place] Medical Branch XARELTO 15 2020-0 Yes Univers mg tablet -28 ity of 00:00: [place] Medical Branch XARELTO 15 2020-0 Yes Univers mg tablet - ity of 00:00: [place] [facility] XARELTO 15 2020-0 Yes Univers mg tablet - ity of 00:00: [place] [facility] XARELTO 15 2020-0 Yes Univers mg tablet - ity of 00:00: [place] [facility] XARELTO 15 2020-0 Yes Univers mg tablet -28 ity of 00:00: [place] [facility] XARELTO 15 2020-0 Yes Univers mg tablet - ity of 00:00: [place] [facility] XARELTO [...] of 00:00: [place] [facility] XARELTO 15 2021-0 Yes Univers mg tablet 10-16 ity of 00:00: [place] [facility] XARELTO 15 2020-0 Yes Univers mg tablet 10-16 ity of 00:00: [place] [facility] XARELTO 15 2020-0 Yes Univers mg tablet 10-16 ity of 00:00: [place] [facility] Branch XARELTO 15 2020-0 Yes Univers mg tablet 10-16 ity of 00:00: [place] [address] Medical Branch omeprazole 2018-09 Yes 40mg Take 40 mg U nivers 40 mg 2-10 by mouth ity of capsule 00:11: daily. [address] omeprazole 2018-09 Yes 40mg Take 40 mg U nivers 40 mg 2-10 by mouth ity of capsule 00:11: daily. [address] varenicline 2018-09 Yes 1mg Take 1 mg U nivers (CHANTIX) 1 2-10 by mouth 2 it y of mg tablet 00:11: (two) [place] [id number] times Medical daily. Branch predniSONE 2018-09 Yes 20mg Take 20 mg U nivers 20 mg 2-10 by mouth ity of tablet 00:11: daily. [address] omeprazole 2018-09 Yes 40mg Take 40 mg U nivers 40 mg 2-10 by mouth ity of capsule 00:11: daily. [address] fluticasone 2018-09 Yes 1{puff} Inhale 1 Univers -umeclidin- 2-10 Puff ity of vilanter 00:11: daily. [place] ([address]) Branch 100-62.5-25 mcg DsDv aspirin 81 2018-09 Yes 81mg Take 81 mg U nivers mg EC 2-10 by mouth ity of tablet 00:11: daily. [address] varenicline 2018-09 Yes 1mg Take 1 mg U nivers (CHANTIX) 1 2-10 by mouth 2 it y of mg tablet 00:11: (two) [address] Medical daily. Branch predniSONE 2018-09 Yes 20mg Take 20 mg U nivers 20 mg 2-10 by mouth ity of tablet 00:11: daily. [address] omeprazole 2018-09 Yes 40mg Take 40 mg U nivers 40 mg 2-10 by mouth ity of capsule 00:11: daily. [address] fluticasone 2019-1 Yes 1{puff} Inhale 1 Univers -umeclidin- 2-10 Puff ity of vilanter 00:11: daily. [address]) Branch 100-62.5-25 mcg DsDv aspirin 81 2018-09 Yes 81mg Take 81 mg U nivers mg EC 2-10 by mouth ity of tablet 00:11: daily. [address] varenicline 2018-09 Yes 1mg Take 1 mg U nivers (CHANTIX) 1 2-10 by mouth 2 it y of mg tablet 00:11: (two) [place] [id number] times Medical daily. Branch predniSONE 2018-09 Yes 20mg Take 20 mg U nivers 20 mg 2-10 by mouth ity of tablet 00:11: daily. [address] omeprazole 2018-09 Yes 40mg Take 40 mg U nivers 40 mg 2-10 by mouth ity of capsule 00:11: daily. [address] fluticasone 2018-09 Yes 1{puff} Inhale 1 Univers -umeclidin- 2-10 Puff ity of vilanter 00:11: daily. [place] ([address]) Branch 100-62.5-25 mcg DsDv aspirin 81 2018-09 Yes 81mg Take 81 mg U nivers mg EC 2-10 by mouth ity of tablet 00:11: daily. [address] varenicline 2018-09 Yes 1mg Take 1 mg U nivers (CHANTIX) 1 2-10 by mouth 2 it y of mg tablet 00:11: (two) [address] Medical daily. Branch predniSONE 2018-09 Yes 20mg Take 20 mg U nivers 20 mg 2-10 by mouth ity of tablet 00:11: daily. [address] omeprazole 2018-09 Yes 40mg Take 40 mg U nivers 40 mg 2-10 by mouth ity of capsule 00:11: daily. [address] fluticasone 2018-09 Yes 1{puff} Inhale 1 Univers -umeclidin- 2-10 Puff ity of vilanter 00:11: daily. [address]) Branch 100-62.5-25 mcg DsDv aspirin 81 2018-09 Yes 81mg Take 81 mg U nivers mg EC 2-10 by mouth ity of tablet 00:11: daily. [address] 2018-09 Yes 1mg Take 1 mg U nivers (CHANTIX) 1 2-10 by mouth 2 it y of mg tablet 00:11: (two) [address] Medical daily. Branch predniSONE 2018-09 Yes 20mg Take 20 mg U nivers 20 mg 2-10 by mouth ity of tablet 00:11: daily. [address] omeprazole 2018-09 Yes 40mg Take 40 mg U nivers 40 mg 2-10 by mouth ity of capsule 00:11: daily. [address] fluticasone 2018-09 Yes 1{puff} Inhale 1 Univers -umeclidin- 2-10 Puff ity of vilanter 00:11: daily. [place] ([address]) Branch 100-62.5-25 mcg DsDv aspirin 81 2018-09 Yes 81mg Take 81 mg U nivers mg EC 2-10 by mouth ity of tablet 00:11: daily. [address] varenicline 2018-09 Yes 1mg Take 1 mg U nivers (CHANTIX) 1 2-10 by mouth 2 it y of mg tablet 00:11: (two) [address] daily. Branch predniSONE 2018-09 Yes 20mg Take 20 mg U nivers 20 mg 2-10 by mouth ity of tablet 00:11: daily. [address] omeprazole 2018-09 Yes 40mg Take 40 mg U nivers 40 mg 2-10 by mouth ity of capsule 00:11: daily. [address] fluticasone 2018-09 Yes 1{puff} Inhale 1 Univers -umeclidin- 2-10 Puff ity of vilanter 00:11: daily. [place] ([address]) Branch 100-62.5-25 mcg DsDv aspirin 81 2018-09 Yes 81mg Take 81 mg U nivers mg EC 2-10 by mouth ity of tablet 00:11: daily. [address] omeprazole 2018-09 Yes 40mg Take 40 mg U nivers 40 mg 2-10 by mouth ity of capsule 00:11: daily. [address] omeprazole 2018- Yes 40mg Take 40 mg U nivers 40 mg 2-10 by mouth ity of capsule 00:11: daily. [address] omeprazole 2018-09 Yes 40mg Take 40 mg U nivers 40 mg 2-10 by mouth ity of capsule 00:11: daily. [address] omeprazole 2018-09 Yes 40mg Take 40 mg U nivers 40 mg 2-10 by mouth ity of capsule 00:11: daily. [address] omeprazole 2018-09 Yes 40mg Take 40 mg U nivers 40 mg 2-10 by mouth ity of capsule 00:11: daily. [address] omeprazole 2018-09 Yes 40mg Take 40 mg U nivers 40 mg 2-10 by mouth ity of capsule 00:11: daily. [address] omeprazole 2018-09 Yes 40mg Take 40 mg U nivers 40 mg 2-10 by mouth ity of capsule 00:11: daily. [address] omeprazole 2018-09 Yes 40mg Take 40 mg U nivers 40 mg 2-10 by mouth ity of capsule 00:11: daily. [address] omeprazole 2018-09 Yes 40mg Take 40 mg U nivers 40 mg 2-10 by mouth ity of capsule 00:11: daily. [address] omeprazole 2018-09 Yes 40mg Take 40 mg U nivers 40 mg 2-10 by mouth ity of capsule 00:11: daily. [address] omeprazole 2018-09 Yes 40mg Take 40 mg U nivers 40 mg 2-10 by mouth ity of capsule 00:11: daily. [address] omeprazole 2018-09 Yes 40mg Take 40 mg U nivers 40 mg 2-10 by mouth ity of capsule 00:11: daily. [address] omeprazole 2018-09 Yes 40mg Take 40 mg U nivers 40 mg 2-10 by mouth ity of capsule 00:11: daily. [address] Branch KCL 20 mEq 2018-09 Yes [id number] 40meq Take 2 Univers tablet 2-09 tablets by ity of 00:00: mouth [place] daily. Medical Branch KCL 20 mEq 2018-09 Yes [id number] 40meq Take 2 Univers tablet 2-09 tablets by ity of 00:00: mouth [place] 00 daily. Medical Branch atorvastati 2018- Yes [id number] 20mg Take 1 Univers n 20 mg 2-09 tablet by ity of tablet 00:00: mouth at [place] [address] bedtime. Medical Branch metoprolol 2018-09 Yes [id number] 50mg Take 1 Univers succinate 2-09 tablet by ity o f XL 50 mg 24 00:00: mouth 2 [place] as hr tablet 00 (two) Medical times Branch daily. furosemide 2018-09 Yes [id number] 40mg Take 1 Univers 40 mg 2-09 tablet by ity of tablet 00:00: mouth [place] 00 every Medical morning Branch and evening. KCL 20 mEq 2018-09 Yes [id number] 40meq Take 2 Univers tablet 2-09 tablets by ity of 00:00: mouth [place] 00 daily. Medical Branch atorvastati 2018-09 Yes [id number] 20mg Take 1 Univers n 20 mg 2-09 tablet by ity of tablet 00:00: mouth at [place] 00 bedtime. Medical Branch metoprolol 2018-09 Yes [id number] 50mg Take 1 Univers succinate 2-09 tablet by ity o f XL 50 mg 24 00:00: mouth 2 [place] as hr tablet 00 (two) Medical times Branch daily. furosemide 2018-09 Yes [id number] 40mg Take 1 Univers 40 mg 2-09 tablet by ity of tablet 00:00: mouth [place] 00 every Medical morning Branch and evening. KCL 20 mEq 2018-09 Yes [id number] 40meq Take 2 Univers tablet 2-09 tablets by ity of 00:00: mouth [place] 00 daily. Medical Branch atorvastati 2018-09 Yes [id number] 20mg Take 1 Univers n 20 mg 2-09 tablet by ity of tablet 00:00: mouth at [place] 00 bedtime. Medical Branch metoprolol 2018-09 Yes [id number] 50mg Take 1 Univers succinate 2-09 tablet by ity o f XL 50 mg 24 00:00: mouth 2 [place] as hr tablet 00 (two) Medical times Branch daily. furosemide 2018-09 Yes [id number] 40mg Take 1 Univers 40 mg 2-09 tablet by ity of tablet 00:00: mouth [place] 00 every Medical morning Branch and evening. KCL 20 mEq 2018-09 Yes [id number] 40meq Take 2 Univers tablet 2-09 tablets by ity of 00:00: mouth [place] 00 daily. Medical Branch atorvastati 2018-09 Yes [id number] 20mg Take 1 Univers n 20 mg 2-09 tablet by ity of tablet 00:00: mouth at [place] 00 bedtime. Medical Branch metoprolol 2018-09 Yes [id number] 50mg Take 1 Univers succinate 2-09 tablet by ity o f XL 50 mg 24 00:00: mouth 2 [place] as hr tablet 00 (two) Medical times Branch daily. furosemide 2018-09 Yes [id number] 40mg Take 1 Univers 40 mg 2-09 tablet by ity of tablet 00:00: mouth [place] 00 every Medical morning Branch and evening. KCL 20 mEq 2018-09 Yes [id number] 40meq Take 2 Univers tablet 2-09 tablets by ity of 00:00: mouth [place] 00 daily. Medical Branch atorvastati 2018-09 Yes [id number] 20mg Take 1 Univers n 20 mg 2-09 tablet by ity of tablet 00:00: mouth at [place] 00 bedtime. Medical Branch metoprolol 2018-09 Yes [id number] 50mg Take 1 Univers succinate 2-09 tablet by ity o f XL 50 mg 24 00:00: mouth 2 [place] hr tablet 00 (two) Medical times Branch daily. furosemide 2018-09 Yes [id number] 40mg Take 1 Univers 40 mg 2-09 tablet by ity of tablet 00:00: mouth [place] 00 every Medical morning Branch and evening. KCL 20 mEq 2018-09 Yes [id number] 40meq Take 2 Univers tablet 2-09 tablets by ity of 00:00: mouth [place] 00 daily. Medical Branch atorvastati 2018-09 Yes [id number] 20mg Take 1 Univers n 20 mg 2-09 tablet by ity of tablet 00:00: mouth at [place] 00 bedtime. Medical Branch metoprolol 2018-09 Yes [id number] 50mg Take 1 Univers succinate 2-09 tablet by ity o f XL 50 mg 24 00:00: mouth 2 [place] hr tablet 00 (two) Medical times Branch daily. furosemide 2018-09 Yes [id number] 40mg Take 1 Univers 40 mg 2-09 tablet by ity of tablet 00:00: mouth [place] 00 every Medical morning Branch and evening. KCL 20 mEq 2018-09 Yes [id number] 40meq Take 2 Univers tablet 2-09 tablets by ity of 00:00: mouth [place] 00 daily. Medical Branch KCL 20 mEq 2018-09 Yes [id number] 40meq Take 2 Univers tablet 2-09 tablets by ity of 00:00: mouth [place] 00 daily. Medical Branch KCL 20 mEq 2018-09 Yes [id number] 40meq Take 2 Univers tablet 2-09 tablets by ity of 00:00: mouth [place] 00 daily. Medical Branch KCL 20 mEq 2018-09 Yes [id number] 40meq Take 2 Univers tablet 2-09 tablets by ity of 00:00: mouth [place] 00 daily. Medical Branch KCL 20 mEq 2018-09 Yes [id number] 40meq Take 2 Univers tablet 2-09 tablets by ity of 00:00: mouth [place] 00 daily. Medical Branch KCL 20 mEq 2018-09 Yes [id number] 40meq Take 2 Univers tablet 2-09 tablets by ity of 00:00: mouth [place] 00 daily. Medical Branch KCL 20 mEq 2018-09 Yes [id number] 40meq Take 2 Univers tablet 2-09 tablets by ity of 00:00: mouth [place] 00 daily. Medical Branch KCL 20 mEq 2018-09 Yes [id number] 40meq Take 2 Univers tablet 2-09 tablets by ity of 00:00: mouth [place] 00 daily. Medical Branch KCL 20 mEq 2018-09 Yes [id number] 40meq Take 2 Univers tablet 2-09 tablets by ity of 00:00: mouth [place] 00 daily. Medical Branch KCL 20 mEq 2018-09 Yes [id number] 40meq Take 2 Univers tablet 2-09 tablets by ity of 00:00: mouth [place] 00 daily. Medical Branch KCL 20 mEq 2018-09 Yes [id number] 40meq Take 2 Univers tablet 2-09 tablets by ity of 00:00: mouth [place] 00 daily. Medical Branch KCL 20 mEq 2018-09 Yes [id number] 40meq Take 2 Univers tablet 2-09 tablets by ity of 00:00: mouth [place] 00 daily. Medical Branch KCL 20 mEq 2018-09 Yes [id number] 40meq Take 2 Univers tablet 2-09 tablets by ity of 00:00: mouth [place] 00 daily. Medical Branch KCL 20 mEq 2018-09 Yes [id number] 40meq Take 2 Univers tablet 2-09 tablets by ity of 00:00: mouth [place] 00 daily. Medical Branch atorvastati 2018-09- No [id number] 20mg Take 1 Univers n 20 mg 2-09 03-26 tablet by ity of tablet 00:00: 00:00 mouth at [place] 00 :00 bedtime. Medical Branch metoprolol 2018-09- No [id number] 50mg Take 1 Univers succinate 10-28 tablet by ity of XL 50 mg 24 00:00: 00:00 mouth 2 [place] hr tablet 00 :00 (two) Medical times Branch daily. furosemide 2018-09- No [id number] 40mg Take 1 Univers 40 mg 10-28 tablet by ity of tablet [...] Until mL Discontinu ed, Routine ibuprofen Yes [id number] 600mg Take 1 U nivers 600 mg 5-31 tablet by ity of tablet 00:00: mouth [place] 00 every 8 Medical (eight) Branch hours as needed (PAIN). ibuprofen Yes [id number] 600mg Take 1 U nivers 600 mg 5-31 tablet by ity of tablet 00:00: mouth [place] 00 every 8 Medical (eight) Branch hours as needed (pain). ibuprofen 2018- No [id number] 600mg Take 1 Univers 600 mg 5-31 08-15 tablet by ity of tablet 00:00: 00:00 mouth [place] 00 :00 every 8 Medical (eight) Branch hours as needed (PAIN). ibuprofen 2018- No [id number] 600mg Take 1 Univers 600 mg 5-31 08-15 tablet by ity of tablet 00:00: 00:00 mouth [place] 00 :00 every 8 Medical (eight) Branch hours as needed (pain). magnesium Yes 400mg Take 1 Tab U nivers oxide 2-23 by mouth 3 ity of (MAG-OX 00:00: (three) [place] 400) 400 mg 00 times Medical tablet daily. Branch enalapril Yes [id number] 2.5mg Take 1 Tab Univers (VASOTEC) 2-23 [...] s tablet 00 Medical Branch furosemide Yes [id number] 40mg Take 1 Tab Univers (LASIX) 40 2-23 by mouth 2 ity of mg tablet 00:00: (two) [place] 00 times Medical daily. Branch metoprolol Yes 100mg Take 1 Tab Univers succinate 2-23 by mouth ity of XL (TOPROL 00:00: daily. [place] XL) 100 mg 00 Medical 24 hr Branch tablet magnesium 2019- No 400mg Take 1 Tab Univers oxide 2-23 08-15 by mouth 3 ity of (MAG-OX 00:00: 00:00 (three) [place] 400) 400 mg 00 :00 times Medical tablet daily. Branch enalapril 2019- No [id number] 2.5mg Take 1 Tab Univers (VASOTEC) 2-23 08-15 by mouth 2 ity of 2.5 mg 00:00: 00:00 (two) [place] tablet 00 :00 times Medical daily. Branch pantoprazol 2019- No 40mg Take 1 Tab Univers e 2-23 08-15 by mouth ity of (PROTONIX) 00:00: 00:[place]. [place] 40 mg EC 00 :00 Medical tablet Branch KCL 2019- No 20meq Take 1 Tab Unive rs (KLOR-CON 2-23 08-15 by mouth ity o f M20) 20 mEq 00:00: 00:00 daily. [place] as tablet 00 :00 Medical Branch furosemide 2019- No [id number] 40mg Take 1 Tab Univers (LASIX) 40 2-23 08-15 by mouth 2 it y of mg tablet 00:00: 00:00 (two) [place] 00 :00 times Medical daily. Branch metoprolol 2019- No 100mg Take 1 Tab Univers succinate 2-23 08-15 by mouth ity o f XL [...] Immunizations Ordered Filled Immunization Date Status Comments [facility] e Immunization Name Name SARS-COV-2 COVID-19 2020-11-23 Completed Unive rsity of MODERNA VACCINE 00:00:00 [place] [facility] SARS-COV-2 COVID-19 2020-11-23 Completed Unive rsity of MODERNA VACCINE 00:00:00 [place] [facility] SARS-COV-2 COVID-19 2020-11-23 Completed Unive rsity of MODERNA VACCINE 00:00:00 [place] [facility] SARS-COV-2 COVID-19 2020-11-23 Completed Unive rsity of MODERNA VACCINE 00:00:00 [place] [facility] SARS-COV-2 COVID-19 2020-11-23 Completed Unive rsity of MODERNA VACCINE 00:00:00 [place] [facility] SARS-COV-2 COVID-19 2020-11-23 Completed Unive rsity of MODERNA VACCINE 00:00:00 [place] [facility] SARS-COV-2 COVID-19 2020-11-23 Completed Unive rsity of [...] Completed Unive rsity of MODERNA VACCINE 00:00:00 [facility] Branch SARS-COV-2 COVID-19 2020-10-26 Completed Unive rsity of MODERNA VACCINE 00:00:00 [place] [facility] SARS-COV-2 COVID-19 2020-10-26 Completed Unive rsity of MODERNA VACCINE 00:00:00 [place] [facility] SARS-COV-2 COVID-19 2020-10-26 Completed Unive rsity of MODERNA VACCINE 00:00:00 [facility] Branch SARS-COV-2 COVID-19 2020-10-26 Completed Unive rsity of MODERNA VACCINE 00:00:00 [place] [facility] Td 2019-02-16 Completed University of 00:00:00 [facility] Td 2019-02-16 Completed University of 00:00:00 [facility] Td 2019-02-16 Completed University of 00:00:00 [facility] Td 2019-02-16 Completed University of 00:00:00 [facility] Td 2019-02-16 Completed University of 00:00:00 [facility] Td 2019-02-16 Completed University of 00:00:00 [facility] Td 2019-02-16 Completed University of 00:00:00 [facility] Td 2019-02-16 Completed University of 00:00:00 [facility] Td 2019-02-16 Completed University of 00:00:00 [facility] Td 2019-02-16 Completed University of 00:00:00 [facility] Td 2019-02-16 Completed University of 00:00:00 [facility] Td 2019-02-16 Completed University of 00:00:00 [facility] Td 2019-02-16 Completed University of 00:00:00 [facility] Td 2019-02-16 Completed University of 00:00:00 [facility] Td 2019-02-16 Completed University of 00:00:00 [facility] Td 2019-02-16 Completed University of 00:00:00 [facility] Td 2019-02-16 Completed University of 00:00:00 [facility] Td 2019-02-16 Completed University of 00:00:00 [facility] Td 2019-02-16 Completed University of 00:00:00 [facility] Td 2019-02-16 Completed University of 00:00:00 [facility] Td 2019-02-16 Completed University of 00:00:00 [facility] Td 2019-02-16 Completed University of 00:00:00 [facility] Td 2019-02-16 Completed University of 00:00:00 [facility] Pneumococcal 2014-09-05 Completed University o f Polysaccharide, 00:00:00 [place] Med ical PPSV23 (PNEUMOVAX) Branch Influenza Virus 2014-09-05 Completed Universit y of Vaccine Quad IM 3+ 00:00:00 [facility] Pneumococcal 2014-09-05 Completed University o f Polysaccharide, 00:00:00 [place] Med ical PPSV23 (PNEUMOVAX) Branch Influenza Virus 2014-09-05 Completed Universit y of Vaccine Quad IM 3+ 00:00:00 [facility] Pneumococcal 2014-09-05 Completed University o f Polysaccharide, 00:00:00 [place] Med ical PPSV23 (PNEUMOVAX) Branch Influenza Virus 2014-09-05 Completed Universit y of Vaccine Quad IM 3+ 00:00:00 [facility] Pneumococcal 2014-09-05 Completed University o f Polysaccharide, 00:00:00 [place] Med ical PPSV23 (PNEUMOVAX) Branch Influenza Virus 2014-09-05 Completed Universit y of Vaccine Quad IM 3+ 00:00:00 [facility] Pneumococcal 2014-09-05 Completed University o f Polysaccharide, 00:00:00 [place] Med ical PPSV23 (PNEUMOVAX) Branch Influenza Virus 2014-09-05 Completed Universit y of Vaccine Quad IM 3+ 00:00:00 [facility] Pneumococcal 2014-09-05 Completed University o f Polysaccharide, 00:00:00 [place] Med ical PPSV23 (PNEUMOVAX) Branch Influenza Virus 2014-09-05 Completed Universit y of Vaccine Quad IM 3+ 00:00:00 [facility] Pneumococcal 2014-09-05 Completed University o f Polysaccharide, 00:00:00 [place] Med ical PPSV23 (PNEUMOVAX) Branch Influenza Virus 2014-09-05 Completed Universit y of Vaccine Quad IM 3+ 00:00:00 [facility] Pneumococcal 2014-09-05 Completed University o f Polysaccharide, 00:00:00 [place] Med ical PPSV23 (PNEUMOVAX) Branch Influenza Virus 2014-09-05 Completed Universit y of Vaccine Quad IM 3+ 00:00:00 [facility] Pneumococcal 2014-09-05 Completed University o f Polysaccharide, 00:00:00 [place] Med ical PPSV23 (PNEUMOVAX) Branch Influenza Virus 2014-09-05 Completed Universit y of Vaccine Quad IM 3+ 00:00:00 [facility] Pneumococcal 2014-09-05 Completed University o f Polysaccharide, 00:00:00 [place] Med ical PPSV23 (PNEUMOVAX) Branch Influenza Virus 2014-09-05 Completed Universit y of Vaccine Quad IM 3+ 00:00:00 [facility] Pneumococcal 2014-09-05 Completed University o f Polysaccharide, 00:00:00 [place] Med ical PPSV23 (PNEUMOVAX) Branch Influenza Virus 2014-09-05 Completed Universit y of Vaccine Quad IM 3+ 00:00:00 [facility] Pneumococcal 2014-09-05 Completed University o f Polysaccharide, 00:00:00 [place] Med ical PPSV23 (PNEUMOVAX) Branch Influenza Virus 2014-09-05 Completed Universit y of Vaccine Quad IM 3+ 00:00:00 [facility] Pneumococcal 2014-09-05 Completed University o f Polysaccharide, 00:00:00 [place] [facility] ical PPSV23 (PNEUMOVAX) Branch Influenza Virus 2014-09-05 Completed Universit y of Vaccine Quad IM 3+ 00:00:00 [facility] Pneumococcal 2014-09-05 Completed University o f Polysaccharide, 00:00:00 [place] Med ical PPSV23 (PNEUMOVAX) Branch Influenza Virus 2014-09-05 Completed Universit y of Vaccine Quad IM 3+ 00:00:00 [facility] Pneumococcal 2014-09-05 Completed University o f Polysaccharide, 00:00:00 [place] Med ical PPSV23 (PNEUMOVAX) Branch Influenza Virus 2014-09-05 Completed Universit y of Vaccine Quad IM 3+ 00:00:00 [facility] Pneumococcal 2014-09-05 Completed University o f Polysaccharide, 00:00:00 [place] Med ical PPSV23 (PNEUMOVAX) Branch Influenza Virus 2014-09-05 Completed Universit y of Vaccine Quad IM 3+ 00:00:00 [facility] Pneumococcal 2014-09-05 Completed University o f Polysaccharide, 00:00:00 [place] Med ical PPSV23 (PNEUMOVAX) Branch Influenza Virus 2014-09-05 Completed Universit y of Vaccine Quad IM 3+ 00:00:00 [facility] Pneumococcal 2014-09-05 Completed University o f Polysaccharide, 00:00:00 [place] Med ical PPSV23 (PNEUMOVAX) Branch Influenza Virus 2014-09-05 Completed Universit y of Vaccine Quad IM 3+ 00:00:00 [facility] Pneumococcal 2014-09-05 Completed University o f Polysaccharide, 00:00:00 [place] Med ical PPSV23 (PNEUMOVAX) Branch Influenza Virus 2014-09-05 Completed Universit y of Vaccine Quad IM 3+ 00:00:00 [facility] Pneumococcal 2014-09-05 Completed University o f Polysaccharide, 00:00:00 [place] Med ical PPSV23 (PNEUMOVAX) Branch Influenza Virus 2014-09-05 Completed Universit y of Vaccine Quad IM 3+ 00:00:00 [facility] Pneumococcal 2014-09-05 Completed University o f Polysaccharide, 00:00:00 [place] Med ical PPSV23 (PNEUMOVAX) Branch Influenza Virus 2014-09-05 Completed Universit y of Vaccine Quad IM 3+ 00:00:00 [facility] Pneumococcal 2014-09-05 Completed University o f Polysaccharide, 00:00:00 [place] Med ical PPSV23 (PNEUMOVAX) Branch Influenza Virus 2014-09-05 Completed Universit y of Vaccine Quad IM 3+ 00:00:00 [facility] Pneumococcal 2014-09-05 Completed University o f Polysaccharide, 00:00:00 [place] Med ical PPSV23 (PNEUMOVAX) Branch Influenza Virus 2014-09-05 Completed Universit y of Vaccine Quad IM 3+ 00:00:00 [facility] Vital Signs Vital Name Observation Time Observation Value Comments Source Systolic blood 2020-12-29 15:24:00 96 mm[Hg] Univer sity of pressure [facility] Diastolic blood 2020-12-29 15:24:00 66 mm[Hg] Unive rsity of pressure [facility] Heart rate 2020-12-29 15:24:00 71 /min [facility] Body temperature 2020-12-29 15:24:00 36.33 [facility] weight 2020-12-29 15:24:[address] [facility] BMI 2020-12-29 15:24:00 22.96 kg/m2 [facility] Oxygen saturation in 2020-12-29 15:24:00 95 /min University of Arterial blood by [facility] lucho Pulse oximetry Branch Systolic blood 2020-12-18 19:07:00 117 mm[Hg] Univer sity of pressure [place] [facility] Diastolic blood 2020-12-18 19:07:00 77 mm[Hg] Unive rsity of pressure [place] [facility] Heart rate 2020-12-18 19:07:00 77 /min Universi ty of [place] [facility] Body temperature 2020-12-18 19:07:00 36.22 Tia Univ [...] 18:00:00 74 mm[Hg] Unive rsity of pressure [place] [facility] Heart rate 2020-12-12 18:00:00 78 /min Universi ty of [place] [facility] Respiratory rate 2020-12-12 18:00:00 20 /min Univ ersity of [place] [facility] Oxygen saturation in 2020-12-12 18:00:00 96 /min University of Arterial blood by [facility] Pulse oximetry Branch Body temperature 2020-12-12 16:33:00 37.28 Tia Univ ersity of [place] [facility] Body height 2020-12-12 16:33:00 177.8 cm Universi ty of [place] [facility] Body weight 2020-12-12 16:33:00 70.308 kg Universi ty of [place] [facility] BMI 2020-12-12 16:33:00 22.24 kg/m2 Universi ty of [place] [facility] Systolic blood 2020-12-08 18:55:00 125 mm[Hg] Univer sity of pressure [place] [facility] Diastolic blood 2020-12-08 18:55:00 82 mm[Hg] Unive rsity of pressure [place] [facility] Heart rate 2020-12-08 18:55:00 75 /min Universi ty [facility] [place] [facility] Body temperature 2020-12-08 18:55:00 36.56 Tia Univ ersity of [place] [facility] Respiratory rate 2020-12-08 18:55:00 16 /min [...] saturation in 2019-05-04 04:21:00 99 /min University Arterial blood by [facility] Pulse oximetry Branch Systolic blood 2019-05-04 04:21:00 [...] Medical Branch BMI 2019-05-04 04:21:00 22.96 kg/m2 [facility] Oxygen saturation in 2019-05-04 04:21:00 99 /min University Arterial blood by [facility] Pulse oximetry Branch Procedures Procedure Date / Time Performing Clinician Source Performed ASSIGNMENT OF BENEFITS 2021-05-20 19:26:54 Doctor Unassigned, No [facility] POCT URINALYSIS AUTO 2020-12-18 19:04:00 Halima Ahn [facility] CT ABDOMEN PELVIS W 2020-12-12 17:25:03 Francisca Narayan [facility] BASIC METABOLIC PANEL 2020-12-12 16:47:00 Francisca Narayan [facility] ([facility], K, CL, CO2, Medical Branch GLUCOSE, BUN, CREATININE, CA) CBC WITH DIFF 2020-12-12 16:47:00 Francisca Narayan [facility] URINALYSIS 2020-12-12 16:47:00 Francisca Narayan [facility] NOTICE OF PRIVACY 2020-12-12 16:28:57 Doctor Unassigned, No [facility] CONSENT/REFUSAL FOR 2020-12-12 16:28:23 Doctor Unassigned, No Un iversity of [place] DIAGNOSIS AND TREATMENT [facility] POCT URINALYSIS AUTO 2020-12-08 18:56:00 Jeanette Mcdaniel [facility] CONSENT/REFUSAL FOR 2020-12-08 18:26:17 Doctor Unassigned, No [facility] [place] DI[facility] AND TREATMENT [employer] [facility] [employer] [facility] Medical Branch ASSIGNMENT OF BENEFITS 2020-12-08 18:25:58 Doctor Unassigned, No [facility] Branch AUTHORIZATION FOR 2020-02-20 05:01:00 Doctor Unassigned, No [facility] RELEASE OF [facility] Branch NOTICE OF PRIVACY 2019-05-04 04:10:29 Doctor Unassigned, No [facility] CONSENT/REFUSAL FOR 2019-05-04 04:10:09 Doctor Unassigned, No Un iversity of [place] DIAGNOSIS AND TREATMENT [employer] [facility] [employer] [facility] Medical Branch Encounters Start End Encounter Admission Attending Care Care Encounter Source Date/Time Date/Time Type Type Clinicians Facility Department ID 2021-07-19 Emergency [facility] [id number] Univers 08:46:33 ity of [facility] 2021-05-22 2021-05-22 Telephone Violeta [facility] [id number] Univers 00:00:00 00:00:00 Jaenette Deshpande [place] [id number] ity [id number] [phone] Ga dical [facility] 2021-05-20 2021-05-20 Barrel Handler [place], Anshu Lab Main [facility] [id number] Univers 14:28:38 14:43:38 Visit Halima Ahn [id number] ity [place] [id number] [phone] [facility] 2021-05-20 2021-05-20 Outpatient [facility] [id number] Univers 14:30:00 14:30:00 HALIMA ity [facility] 2021-05-20 2021-05-20 Orders Doctor ELDER [id number] Univers 00:00:00 00:00:00 Only Unassigned, ASHER [id number] ity of [place] [facility] [id number] [place] [phone] [address] 2021-05-20 2021-05-20 [facility] [id number] Univers 00:00:00 00:00:00 Halima Tabares [id number] i ty [id number] [phone] Ga dical nal 204 [facility] 2020-12-29 2020-12-29 Office [facility] [id number] Univers 10:12:45 11:07:51 Visit Halima Tabares [id number] i ty [place] [id number] [phone] Ga dical nal 204 [facility] 2020-12-29 2020-12-29 Outpatient R JIMY [facility] [id number] Univers 10:15:00 [facility]:15[facility]00 [facility] 2020-12-18 2020-12-18 [facility] [id number] Univers 13:36:17 14:58:35 Visit Rm, Adc Surg Spec Procedure Raysa 3 [id number] [place] [id number] [phone] [address] 2020-12-18 2020-12-18 Outpatient R JIMY [facility] [id number] Univers 14:00:00 14:00:00 [facility] 2020-12-16 2020-12-16 Outpatient [facility] [id number] Univers 00:00:00 00:00:00 JEANETTE [facility] 2020-12-16 2020-12-16 Telephone [facility] [id number] Univers 00:00:00 00:00:00 Jeanette Tabares [id number] [id number] [phone] [address] 2020-12-12 2020-12-12 Emergency [facility] [id number] Univers 11:36:00 13:42:00 Francisca Tabares [id number] it[id number] [phone] [address] 2020-12-12 2020-12-12 Telephone [facility] [id number] Univers 00:00:00 00:00:00 Jeanette Tabares [id number] [id number] [phone] [address] 2020-12-08 2020-12-08 Office [facility] [id number] Univers 13:28:10 14:09:14 Visit Jeanette Tabares [id number] [place] [id number] [phone] Ga dical [facility] 204 [facility] 2020-12-08 2020-12-08 Outpatient Manoj MCDANIEL [facility] [id number] Univers 13:30:00 13:30:00 JEANETTE judge [facility] 2020-12-08 2020-12-08 Orders Doctor ELDER Addison.[id number] Univers 00:00:00 00:00:00 Only Unassigned, ASHER [id number] ity of [place] [facility] [id number] [place] [phone] [address] 2020-12-07 2020-12-07 Nurse ELDER [id number] Univers 00:00:00 00:00:00 Triage Herminia Chandler ASHER [id number] ity of [facility] [id number] [place] [phone] [facility] [address] [place] 2020-06-19 2020-06-19 Outpatient Pepper, HCAWU SURG [id number] [facility] 13:30:00 13:30:[address] [place] [address] 2020-02-20 2020-02-20 Orders Doctor ELDER [id number] [id number] Univers 00:00:00 00:00:00 Only Unassigned, ASHER [id number] ity of [place] [facility] [id number] [place] [phone] [address] 2020-02-20 2020-02-20 Orders Doctor ELDER Addison.2.840.114 [id number] 00:00:00 00:00:00 Only Unassigned, ASHER [id number] [place] [facility] [id number] [id number] 2019-08-28 2019-08-28 Emergency X JOEL [facility] ERT [id number] Univers 08:25:33 11:54:00 HERMINIA judge [facility] 2019-08-24 2019-08-24 Emergency X SINGER [facility] ERT [id number] Univers 01:43:17 03:52:00 JOEL judge [facility] 2019-05-03 2019-05-04 Emergency [facility] [id number] Univers 23:28:18 00:27:00 Ramesh A [place] [id number] i ty of [place] [id number] [facility] [phone] [address] 2019-05-03 2019-05-04 Emergency [facility] [id number] 23:28:18 00:27:00 Ramesh A [place] [id number] [place] [id number] [place] [phone] [facility] 2019-05-03 2019-05-03 Orders Doctor ELDER [id number] Univers 00:00:00 00:00:00 Only Unassigned, ASHER [id number] ity [place] [facility] [id number] [facility] [phone] [address] 2019-05-03 2019-05-03 Orders Doctor ELDER [id number] 00:00:00 00:00:00 Only Unassigned, [id number] [facility] [id number] Results Test Description Test Time Test [...] U APPEAR (test code = 3267) clear [facility] URINALYSIS, [id number] 19:05:00 Test Item Value Reference Range Interpretation [...] (test code = negative Negative - Negative 1) POCT U BLD (test code = 3257) small Negative - Negative POCT U COLOR (test code = yellow 3266) POCT U APPEAR (test code = clear 3267) [facility] URINALYSIS, [id number] 19:05:00 Test Item Value Reference Range Interpretation [...] U APPEAR (test code = clear 3267) [facility] [id number] 17:53:531. ?No hydronephrosis or nephrolithiasis. 2. ?Mild circumferential thickening of urinary bladder is likely related topartial decompression. Consider clinical correlation with UA. 3. ?Prostatomegaly. 4.?Partially visualized small right hydrocele. 5. ?Additional findings as above.CT ABDOMEN AND PELVIS WITH CONTRAST REASON FOR STUDY: Hematuria, unknown cause COMPARISON: 08/27/2019 TECHNIQUE: Multidetector axial CT images from lung bases through proximalthighs after IV administration of nonionic iodinated contrast material.Coronal and sagittal MPR images also generated. INTRAVENOUS CONTRAST ADMINISTRATION (mL Omnipaque 350): 120. Total DLP: 279 mGy*cm FINDINGS: Lower chest: Centrilobular emphysematouschanges. Partially visualizedright ventricular ICD lead. ABDOMEN AND [...] limits. Kidneys: Symmetric renal enhancement. Subcentimeter hypoattenuating lesionwithin posterior right upper renal pole is too small to characterize. Nohydronephrosis or nephrolithiasis. Bowel: Small sliding-type hiatal hernia with mild circumferential distalesophageal thickening (2:16). [place] density within the distal stomach andat the hepatic flexure likely represent ingested capsules.Peritoneum: No pneumoperitoneum or free fluid. Vasculature: Circumaortic configuration of the left renal vein. Patent mainportal and splenic veins. Mild atherosclerotic calcifications and softplaque throughout the infrarenal abdominal aorta. Lymph Nodes: No lymphadenopathy. ?Pelvic organs: Urinary bladder is mildly thickened likely related topartial decompression. Enlarged prostate measures 5.2 cm in transversedimension at the level femoral necks. Partially visualized small righthydrocele. Abdominal/Pelvic Wall: Tiny fat-containing umbilical hernia measuring lessthan 1 cmin transverse dimension at the level of the fascial defect. BONES: No acute or suspicious osseous abnormality.. [facility], Radiant Results Inft User - 12/12/2020 12:55 PM CDTCT ABDOMEN AND PELVIS WITH CONTRA STREASON FOR STUDY: Hematuria, unknown cause COMPARISON: 08/27/2019TECHNIQUE: [...] Tract/GB: Partially decompressed gallbladder without radiopaquecholelithiasis. No biliaryductal dilatation.Spleen: No splenomegaly. Subcentimeter splenule along the lateral marginthe spleen.Pancreas: Mild pancreatic atrophy. No pancreatic ductal dilatation.Adrenals: Within normal limits.Kidneys: Symmetric renal enhancement. Subcentimeter hypoattenuating lesionwithin posterior right upper renal pole is too small to characterize. Nohydronephrosis or nephrolithiasis.Bowel: Small sliding-type hiatal hernia with mild circumferential distalesophageal thickening (2:16). [place] density within the distal stomach andat the hepatic flexure likely represent ingested capsules.Peritoneum: No pneumoperitoneum or free fluid.Vasculature: Circumaortic configuration of the left renal vein. Patent mainportal and splenic veins. Mild atherosclerotic calcifications and softplaque throughout the infrarenal a bdominal aorta.Lymph Nodes: No lymphadenopathy. Pelvic organs: Urinary bladder is mildly thickened likely related topartial decompression. Enlarged prostate measures 5.2 cm in transversedimension at the level femoral necks. Partially visualized small righthydrocele.Abdominal/Pelvic Wall: Tiny fat-containing umbilical hernia measuring lessthan 1 cm in transverse dimension at the level of the fascial defect.BONES: No acute or suspicious osseous abnormality..IMPRESSION1. No hydronephrosis or nephrolithiasis. 2. Mild circumferential thickening of urinary bladder is likely related topartial decompression. Consider clinical correlation with UA.3. Prostatomegaly.4. Partially visualized small right hydrocele.5. Additional findings as above. [facility]:37:38 Test Item Value Reference Range Interpretation Comments APPEARANCE (test code = Cloudy Clear A 1386689462) COLOR (test code = Red Yellow A 8415602759) PH (test code = 4.8-8.0 4958385294) SP GRAVITY (test code = 1.003-1.030 0978093125) GLU U QUAL (test code = 50 mg/dL Normal A 8793739778) BLOOD (test code = 3+ Negative A 1071047021) KETONES (test code = Negative Negative 7206504038) PROTEIN (test code = 100 mg/dL Negative A 2887-8) UROBILIN (test code = Normal Normal 5257499998) BILIRUBIN (test code = Negative Negative 6743334818) NITRITE (test code = Negative Negative 7630357321) LEUK DIANELYS (test code = Negative Negative 8208030814) RBC/HPF (test code = >182 See_Comment H [Autom ated message] 1093837279) The system [employer] generated this result transmit anirudh reference range : 0 - 3 HPF. The refe rence range was not u sed to interpret th is result as normal/abnormal . WBC/HPF (test code = >182 See_Comment H [Autom ated message] 1778510475) The system [employer] generated this result transmit anirudh reference range : 0 - 5 HPF. The refe rence range was not u sed to interpret th is result as normal/abnormal . BACTERIA (test code = Moderate Negative A 5617843033) WBC CLUMPS (test code = See_Comment H [Au tomated message] 5033528389) The system [employer] generated this result transmit anirudh reference range : <=1 HPF. The refere nce range was not u sed to interpret th is result as normal/abnormal . Lab Interpretation (test Abnormal code = 59516-2) [facility] Metabolic Panel (NA, K, CL, CO2, GLUCOSE, BUN, CREATININE, CA)2020-12-12 17:13:57 Test Item Value Reference Range Interpretation Comments NA (test code = 140 mmol/L 135-145 0107247433) K (test code = 4.5 mmol/L 3.5-5.0 4958310216) CL (test code = 100 mmol/L 98-108 2513145216) CO2 TOTAL (test code = 35 mmol/L 23-31 H 4120022332) AGAP (test code = 2-16 4000886191) BUN (test code = 25 mg/dL 7-23 H 7137863484) GLUCOSE (test code = 114 mg/dL 70-110 H 7344035503) CREATININE (test code = 1.18 mg/dL 0.60-1.25 3612340163) CALCIUM (test code = 9.0 mg/dL 8.6-10.6 3622394743) eGFR Calculation mL/min/1.73m2 (Non-) (test code = 5904218828) eGFR Calculation mL/min/1.73m2 () (test code = 7442394856) OMAYRA (test code = OMAYAR) Association of Glomerular Filtration Rate (GFR) and [...] tests). Lab Interpretation Abnormal (test code = 84691-2) [facility] with [id number] 16:56:10 Test Item Value Reference Range Interpretation Comments WBC (test code = See_Comment [Automated 6690-2) message] The sy stem which generated this result transmitted reference range : 4.20 - 10.70 10*3/?L. The reference range was not used to interpret this result as normal/abnormal . RBC (test code = See_Comment [Automated 789-8) message] The sy stem which generated this [...] RDW-SD (test code = 42.9 fL 38.5-51.6 09876-5) RDW-CV (test code = 11.9 % 12.1-15.4 L 788-0) PLT (test code = See_Comment [Automated 777-3) message] The sy stem which generated this result transmitted reference range : 150 - 328 10*3/ ?L. The reference r pasquale was not used to interpret this result as normal/abnormal . MPV (test code = 10.8 fL 9.8-13.0 33060-8) NRBC/100 WBC (test See_Comment [Automat ed code = 9211620567) message] The system which generated this result transmitted reference range : 0.0 - 10.0 /100 WBCs. The refer ence range was not u sed to interpret th is result as normal/abnormal . NRBC x10^3 (test code <0.01 See_Comment [Auto mated = 0206004986) message] The s ystem which generated this result transmitted reference range : 10*3/?L. The reference range was not used to interpret this result as normal/abnormal . GRAN MAT (NEUT) % 63.5 % (test code = 770-8) IMM GRAN % (test code 0.40 % = 2638604269) LYMPH % (test code = 23.9 % 736-9) MONO % (test code = 6.7 % 5905-5) EOS % (test code = 4.3 % 713-8) BASO % (test code = 1.2 % 706-2) GRAN MAT x10^3(ANC) 4.27 10*3/uL 1.99-6.95 (test code = 5340067452) IMM GRAN x10^3 (test 0.03 10*3/uL 0.00-0.06 code = 6848973570) LYMPH x10^3 (test code 1.61 10*3/uL 1.09-3.23 = 731-0) MONO x10^3 (test code 0.45 10*3/uL 0.36-1.02 = 742-7) EOS x10^3 (test code = 0.29 10*3/uL 0.06-0.53 711-2) BASO x10^3 (test code 0.08 10*3/uL 0.01-0.09 = 704-7) Lab Interpretation Abnormal (test code = 85376-7) [facility] URINALYSIS, [id number] 18:56:00 Test Item Value Reference Range Interpretation [...] 3267) Lab Interpretation (test code Abnormal = 05098-2) [facility], [id number] 18:56:00 Test Item Value Reference Range Interpretation [...] 3267) Lab Interpretation (test code Abnormal = 32511-4) [facility]- XR CHEST [id number] 16:22:00 Patient Name: THIERRY MONGE Unit No: [id number] EXAMS: CPT CODE: [id number] XR CHEST 1V 52305 EXAMINATION: - XR CHEST 1V. LOCATION: B2. HISTORY: S/P ICD. COMPARISON: None. TECHNIQUE: Single AP view of the chest was obtained. FINDINGS: The right lung apex is excluded from the jvhbe-gt-zgjy. The heart is normal in size. Left AICD device is present. The lungs are clear. No acute osseous abnormality is id entified. IMPRESSION: The right lung apex is excluded from the sxiie-ck-emcl. No acute cardiopulmonary abnormality is identified. at 1622 Reported and signed by: Latanya Marshall MD CC: Tyrell Mckeon Technologist: KERRY MathewsRS, RT(R)Transcrpt Date/Tm/Trnsp: 06/19/2020 (1065) [email or web address] Orig Print D/T: S: 06/19/2020 (0354) [facility] NAME: THIERRY MONGE [id number] PHYS: [place] [address] : 1960 AGE: 59 SEX: M LOC: Z.354 A PHONE #: [phone] EXAM DATE: 06/19/2020 STATUS: ADM IN FAX #: [phone] RADIOLOGY NO: PAGE 1 Signed ReportBASIC METABOLIC [id number] 13:17:00 Test Item Value Reference Range Interpretation [...] code = MG/DL 8.7-9.7 CA) Comments to Batt Machine Operator: NURSE WILL BRING SPECIMEN TO LABIs this a LINE draw? N [id number] 13:17:00 Test Item Value Reference Range Interpretation Comments MAGNESIUM (test code = MAG) MG/DL 1.6-2.3 Comments to Batt Machine Operator: NURSE WILL BRING SPECIMEN TO LABIs this a LINE draw? N BASIC METABOLIC [id number] 13:17:00 Test Item Value Reference Range Interpretation [...] 9.1 MG/DL 8.4-10.2 N CA) Comments to Batt Machine Operator: NURSE WILL BRING SPECIMEN TO LABIs this a LINE draw? N [id number] 13:17:00 Test Item Value Reference Range Interpretation Comments MAGNESIUM (test code = MAG) 2.2 MG/DL 1.6-2.3 N Comments to Batt Machine Operator: NURSE WILL BRING SPECIMEN TO LABIs this a LINE draw? N BASIC METABOLIC [id number] 13:16:00 Test Item Value Reference Range Interpretation [...] code = MG/DL 8.7-9.7 CA) Comments to Batt Machine Operator: NURSE WILL BRING SPECIMEN TO LABIs this a LINE draw? N [id number] 13:16:00 Test Item Value Reference Range Interpretation Comments MAGNESIUM (test code = MAG) MG/DL 1.6-2.3 Comments to Batt Machine Operator: NURSE WILL BRING SPECIMEN TO LABIs this a LINE draw? N BASIC METABOLIC [id number] 13:14:00 Test Item Value Reference Range Interpretation [...] code = CA) MG/DL 8.7-9.7 Comments to Batt Machine Operator: NURSE WILL BRING SPECIMEN TO LABIs this a LINE draw? N [id number] 13:14:00 Test Item Value Reference Range Interpretation Comments MAGNESIUM (test code = MAG) MG/DL 1.6-2.3 Comments to Batt Machine Operator: NURSE WILL BRING SPECIMEN TO LABIs this a LINE draw? N BASIC METABOLIC [id number] 13:13:00 Test Item Value Reference Range Interpretation [...] code = CA) MG/DL 8.7-9.7 Comments to Batt Machine Operator: NURSE WILL BRING SPECIMEN TO LABIs this a LINE draw? N [id number] 13:13:00 Test Item Value Reference Range Interpretation Comments MAGNESIUM (test code = MAG) MG/DL 1.6-2.3 Comments to Batt Machine Operator: NURSE WILL BRING SPECIMEN TO LABIs this a LINE draw? N PROTHROMBIN [id number] 13:08:00 Test Item Value Reference Range Interpretation Comments PROTHROMBIN TIME 12.7 SECONDS 9.4-12.5 H PATIENT (test code = PTP) INTERNATIONAL NORMAL 1.2 The INR is to be RATIO (test code = used only for INR) monitoring oral anticoagulantth erap y. INDICATION I NR VALUE ---- ---- ---- -------1. Prophylaxis, de ep venous thrombos is, including high risk surgery. 2.0 - 3.0 2. Prophylaxis, deep venous thrombosis, hip surgery, treatm ent for deep venous thrombosis or pulmonary prevention of systemic emboli sm in patients wit h valvular heart disease, atrial fibrillation, tissue heart va lve, or acute myocar dial infarction. 2. 0 - 3.0 3. Guest Relations Executive al prosthesis hear t valves, recurre nt systemic emboli sm. 3.0 - 4.5 Comments to Batt Machine Operator: NURSE WILL BRING SPECIMEN TO LABPTT ACTIVATED 2020-06-19 13:08:00 Test Item Value Reference Range Interpretation Comments PTT ACTIVATED (test code = APTT) 30.8 SECONDS 25.1-36.5 N Comments to Batt Machine Operator: NURSE WILL BRING SPECIMEN TO LABCBC W/AUTO [...] 0.00 K/mm3 0.0-0.1 N NRBC#) Comments to Batt Machine Operator: NURSE WILL BRING SPECIMEN TO LABIs this a LINE draw? N COVID 19 Asymptomatic IH [id number] 12:14:00 Test Item Value Reference Range Interpretation Comments COVID 19 NEGATIVE Negative "Negative resul ts from Asymptomatic IH AG patients with symptom (test code = onset beyondfiv e days, COVNONPUIAG) should be treat ed as presumptive, andconfirmation with a molecular assay [...]
--- NOTE | 2022-09-12 07:46 | EDPHYS ---
Physician Documentation [facility] Name: Juan C Monge Age: 62 yrs Sex: Male : 1960 Arrival Date: 09/12/2022 Time: 07:00 Bed 6 Private MD: ED Physician Sam Lindsey HPI: 09/12 07:39 This 62 yrs old Male presents to ER via Ambulatory with complaints of Eye belén Problem. Historical: - Allergies: 07:27 No Known Allergies; aa5 - PMHx: :27 Atrial Fib; COPD; CVA; Hyperlipidemia; Hypertension; Myocardial infarction; skull aa5 fracture; - PSHx: :27 Defibrillator; aa5 - Immunization history:: Adult Immunizations up to date. - Social history:: Smoking status: Patient reports the use of cigarette tobacco products, unknown amount. ROS: 07:40 Constitutional: Negative for fever, chills, and weight loss, ENT: Negative for injury, belén pain, and discharge, Neck: Negative for injury, pain, and swelling, Cardiovascular: Negative for chest pain, palpitations, and edema, Respiratory: Negative for shortness of breath, cough, wheezing, and pleuritic chest pain, Abdomen/GI: Negative for abdominal pain, nausea, vomiting, diarrhea, and constipation, Back: Negative for injury and pain, : Negative for injury, bleeding, discharge, and swelling, MS/Extremity: Negative for injury and deformity, Skin: Negative for injury, rash, and discoloration, Neuro: Negative for headache, weakness, numbness, tingling, and seizure, Psych: Negative for depression, anxiety, suicide ideation, homicidal ideation, and hallucinations, Allergy/Immunology: Negative for hives, rash, and allergies, Endocrine: Negative for neck swelling, polydipsia, polyuria, polyphagia, and marked weight changes, Hematologic/Lymphatic: Negative for swollen nodes, abnormal bleeding, and unusual bruising. 07:40 Eyes: Positive for redness, of the outer aspect of conjuctiva of right eye, iris of right eye, inner aspect of conjuctiva of right eye, outer aspect of conjuctiva of left eye, iris of left eye and inner aspect of conjunctiva of left eye. 07:40 ENT: Positive for Exam: 07:40 Constitutional: This is a well developed, well nourished patient who is awake, alert, belén and in no acute distress. Head/Face: Normocephalic, atraumatic. Neck: Trachea midline, no thyromegaly or masses palpated, and no cervical lymphadenopathy. Supple, full range of motion without nuchal rigidity, or vertebral point tenderness. No Meningismus. Chest/axilla: Normal chest wall appearance and motion. Nontender with no deformity. No lesions are appreciated. Cardiovascular: Regular rate and rhythm with a normal S1 and S2. No gallops, murmurs, or rubs. Normal PMI, no JVD. No pulse deficits. Respiratory: Lungs have equal breath sounds bilaterally, clear to auscultation and percussion. No rales, rhonchi or wheezes noted. No increased work of breathing, no retractions or nasal flaring. Abdomen/GI: Soft, non-tender, with normal bowel sounds. No distension or tympany. No guarding or rebound. No evidence of tenderness throughout. Back: No spinal tenderness. No costovertebral tenderness. Full range of motion. Male : Normal genitalia with no discharge or lesions. Skin: Warm, dry with normal turgor. Normal color with no rashes, no lesions, and no evidence of cellulitis. MS/ Extremity: Pulses equal, no cyanosis. Neurovascular intact. Full, normal range of motion. Neuro: Awake and alert, GCS 15, oriented to person, place, time, and situation. Cranial nerves II-XII grossly intact. Motor strength 5/5 in all extremities. Sensory grossly intact. Cerebellar exam normal. Normal gait. Psych: Awake, alert, with orientation to person, place and time. Behavior, mood, and affect are within normal limits. 07:40 Eyes: Periorbital structures: appear normal, no acute changes, no abrasion, no cellulitis, no contusion, no ecchymosis, no erythema, no laceration, no swelling, Pupils: no acute changes, equal, round, and reactive to light and accomodation, Extraocular movements: intact throughout, Conjunctiva: normal, no chemosis, no excoriation, no exudate, no injection, no subconjunctival hemorrhage no abnormal tearing, Corneas: are normal, no acute changes, no evidence of abrasion, no foreign body, Sclera: no appreciated abnormality, no acute changes, Anterior chamber: normal, no acute changes, Lids and lashes: appear normal, no acute changes, Visual manriquez: are intact. Vital Signs: 07:19 BP 156 / 86; Pulse 85; Resp 16 S; Temp 97.9(TE); Pulse Ox 94% on R/A; Weight 72.57 kg aa5 (R); Height 5 ft. 10 in. (177.80 cm) (R); 07:19 Body Mass Index 22.96 (72.57 kg, 177.80 cm) aa5 MDM: 07:11 Patient medically screened. belén 07:42 Differential diagnosis: Corneal abrasion of Corneal ulcer of Foreign body in Acute belén iritis of Acute glaucoma in Ultraviolet keratitis in. Data reviewed: vital signs, nurses notes. Data interpreted: compliance monitor: rate is 85 beats/min, rhythm is regular, Pulse oximetry: on room air is 94 %. Administered Medications: 07:59 CANCELLED (Duplicate Order): Tobramycin Drops (0.3 %) 1 drops Ophthalmic once; 1 gtt ou belén 08:00 Drug: Gentamicin Drops 0.3 % 2 drops Route: Ophthalmic; Site: both eyes; kb3 Disposition Summary: 09/12/22 07:45 Discharge Ordered Location: Home [facility] Problem: new belén Symptoms: have improved belén Condition: Stable belén Diagnosis - Other conjunctivitis belén Followup: belén - With: Private Physician - When: 2 - 3 days - Reason: Recheck today's complaints, Continuance of care, Re-evaluation by your physician Followup: belén - With: Henry Carrillo MD - When: 2 - 3 days - Reason: Recheck today's complaints, Re-evaluation by your physician Discharge Instructions: - Discharge Summary Sheet belén - Allergic Conjunctivitis, Adult belén - Bacterial Conjunctivitis, Adult [facility] Forms: - Medication Reconciliation Form [facility] - Thank You Letter belén - Antibiotic Education belén - Prescription Opioid Use [facility] Prescriptions: - tobramycin 0.3 % Ophthalmic drops - instill 1 drop by OPHTHALMIC route every 4 hours 1 gtt to ou q 4 hrs; 10 belén milliliter; Refills: 0, Product Selection Permitted Signatures: Sam Lindsey MD MD cha Calderon, Audri RN RN aa5 Steven Jimenez RN RN bp Graciela Archibald RN RN kb3 Corrections: (The following items were deleted from the chart) 07:59 07:40 Tobramycin Drops (0.3 %) 1 drops Ophthalmic once; 1 gtt ou ordered. belén melissa
--- NOTE | 2022-09-12 07:46 | ER ---
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 Pt denies any complaints, denies any redness or burning to eyes. 07:19 Coronavirus screen: At this time, the client does not indicate any symptoms associated aa5 with coronavirus-19. Ebola Screen: Patient denies travel to an Ebola-affected area in the 21 days before illness onset. Initial Sepsis Screen: Does the patient meet any 2 criteria? No. Patient's initial sepsis screen is negative. Does the patient have a suspected source of infection? No. Patient's initial sepsis screen is negative. Risk Assessment: Do you want to hurt yourself or someone else? Patient reports no desire to harm self or others. Onset of symptoms was September 12, 2022. 07:19 Acuity: JESSI 5 aa5 07:19 Method Of Arrival: Ambulatory aa5 Triage Assessment: 07:30 General: Appears in no apparent distress. Behavior is calm, cooperative. Pain: Denies kb3 pain. Historical: - Allergies: 07:27 No Known Allergies; aa5 - PMHx: 07:27 Atrial Fib; COPD; CVA; Hyperlipidemia; Hypertension; Myocardial infarction; skull aa5 fracture; - PSHx: 07:27 Defibrillator; aa5 - Immunization history:: Adult Immunizations up to date. - Social history:: Smoking status: Patient reports the use of cigarette tobacco products, unknown amount. Screenin:25 [facility] ED Fall Risk Assessment (Adult) History of falling in the last 3 months, bp including since admission No falls in past 3 months (0 pts). Abuse screen: Denies threats or abuse. Denies injuries from another. Nutritional screening: No deficits noted. Tuberculosis screening: No symptoms or risk factors identified. Assessment: 07:25 General: PT ASYMPTOMATIC, HERE FOR CONCERN FOR PINK EYE EXPOSURE.. bp Vital Signs: 07:19 BP 156 / 86; Pulse 85; Resp 16 S; Temp 97.9(TE); Pulse Ox 94% on R/A; Weight 72.57 kg [facility] (R); Height 5 ft. 10 in. (177.80 cm) (R); 07:19 Body Mass Index 22.96 (72.57 kg, 177.80 cm) [facility] ED Course: 07:00 Patient arrived in ED. ja2 07:11 Sam Lindsey MD is Attending Physician. [facility] 07:19 Arm band placed on. aa5 07:25 Steven Jimenez, RN is Primary Nurse. bp 07:25 Patient has correct armband on for positive identification. Bed in low position. Call bp light in reach. Side rails up X2. 07:27 Triage completed. aa5 07:30 No provider procedures requiring assistance completed. kb3 07:30 Patient did not have IV access during this emergency room visit. kb3 07:44 Henry Carrillo MD is Referral Physician. [facility] Administered Medications: 07:59 CANCELLED (Duplicate Order): Tobramycin Drops (0.3 %) 1 drops Ophthalmic once; 1 gtt ou belén 08:00 Drug: Gentamicin Drops 0.3 % 2 drops Route: Ophthalmic; Site: both eyes; kb3 Medication: 07:25 VIS not applicable for this client. bp Outcome: 07:45 Discharge ordered by . [facility] 08:01 Discharged to home ambulatory. kb3 08:01 Condition: stable 08:01 Discharge instructions given to patient, Instructed on discharge instructions, follow up and referral plans. medication usage, Demonstrated understanding of instructions, follow-up care, medications, Prescriptions given X 1. 08:04 Patient left the ED. kb3 Signatures: Sam Lindsey MD MD cha Calderon, Audri, RN RN [facility] Steven Jimenez, RN RN Herminia Noel [facility] Graciela Archibald, RN RN kb3
[2022-09-12] MEDS ORDERED: GENTAMICIN 0.3% OPTH DROP 5ML ONE (07:59)
[2022-09-12 08:09] VITALS: BP 156/86; TEMP 97.9; O2SAT 94
== END 2022-09-12 08:04 | disposition home or self-care (01) ==
LOC: ER 06:56
DX: H10.89 Other conjunctivitis (principal)
CPT/HCPCS: 99283

== ENCOUNTER 2023-03-12 23:49 | Emergency (ER) | payer OTHER ==
--- OUTSIDE RECORDS SUMMARY | 2023-03-13 00:07 | XMS REPORT | Continuity of Care Document ---
:1960 Author Organization [facility] t Address [address] [place] [address] Care Team Providers Name Role Phone Mily Goodwin MD Primary Care Physician [phone] HERMIN[place] Attending Clinician Unavailable MARELY WATTERS Attending Clinician Unavailable MARELY WATTERS Attending Clinician Unavailable CARL ORLANDO Attending Clinician Unavailable CARL ORLANDO Attending Clinician Unavailable MILY GOODWIN Attending Clinician Unavailable Doctor Unassigned, [place] Attending Clinician Unavailable Mily Goodwin MD Attending Clinician [phone] Uday ZAMORA, Taylor Mary Attending Clinician Unavailable TRAVIS ZENG Attending Clinician Unavailable Iza Portillo Attending Clinician Francisca Bryant DO Attending Clinician Travis Zeng MD Attending Clinician PRADIP DUMONT Attending Clinician Unavailable Pradip Mccarty Attending Clinician HERMINIA CHO Attending Clinician Unavailable Herminia Cho MD Attending Clinician FRANCISCA BRYANT Attending Clinician Unavailable LOUIS HONG Attending Clinician Unavailable Louis Hong DO Attending Clinician Bessie Oswald MD Attending Clinician RACHAEL FLOWERS Attending Clinician Unavailable Rachael Flowers MD Attending Clinician LEOBARDO SLOAN Attending Clinician Unavailable Leobardo Sloan MD Attending Clinician BESSIE OSWALD Attending Clinician Unavailable Nomi Mary DO Attending Clinician STEPHANIE ALMONTE Attending Clinician Unavailable Stephanie Almonte MD Attending Clinician IZA VARMA Attending Clinician Unavailable Kathia Paula MD Attending Clinician Agapito Hackett MD Attending Clinician María Diaz DO Attending Clinician MARIOSL DEVLIN Attending Clinician Unavailable Marisol Devlin MD Attending Clinician NOMI MARY Attending Clinician Unavailable NOMI MARY Attending Clinician Unavailable Dedrick Toth MD Attending Clinician Cecy Caro LVN Attending Clinician Carlo Valdez Attending Clinician Abi Swan MD Attending Clinician Clive Contreras MD Attending Clinician ERNESTO PIPER Attending Clinician Unavailable ERNESTO PIPER Attending Clinician Unavailable Krissy Powers MD Attending Clinician LEILA CHAPA Attending Clinician Unavailable Leila Chapa MD Attending Clinician Karine GAMBLING BOX PERSONJeanette Faith Attending Clinician [facility] Lab Main Attending Clinician Unavailable Gokul Turner MD Attending Clinician GOKUL TURNER Attending Clinician Unavailable , [facility] Surg Spec Procedure Attending Clinician Unavailable JEANETTE MCDANIEL Attending Clinician Unavailable Herminia Perez RN Attending Clinician Unavailable Tyrell Mckeon Attending Clinician Unavailable Ramesh Brown Attending Clinician TRAVIS ZENG Admitting Clinician Unavailable Travis Zeng MD Admitting Clinician STEPHANIE ALMONTE Admitting Clinician Unavailable LOUIS HONG Admitting Clinician Unavailable María Diaz DO Admitting Clinician MARISOL DEVLIN Admitting Clinician Unavailable IZA VARMA Admitting Clinician Unavailable Clive Contreras MD Admitting Clinician KRISSY POWERS Admitting Clinician Unavailable Krissy Powers MD Admitting Clinician MARÍA DIAZ Admitting Clinician Unavailable HERMINIA CHO Admitting Clinician Unavailable SAUD SANDERS Admitting Clinician Unavailable Payers Payer Name Policy Type Policy Number Effective Date Expiration Date S [facility] [id number] 2018 MEDICARE GOLD 00:00:00 Problems Condition Condition Condition Status Onset Resolution Last Treating Co mments Source Name Details Category Date Date Treatment Clinician Date 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 02-16 it y of ion ion 00:00: [place] 00 Medical Branch Hypotensio Hypotensio Disease Active U nivers n, n, 5 ity of unspecifie [place] 00 Medical hypotensio hypotensio Br anch n type n type E46 E46 Disease Active Univers Unspecifie Unspecifie 03 it y of d severe d severe 00:00: [place] protein-ca protein-ca 00 Me dical armand armand Branch malnutriti malnutriti on on Confusion Confusion Disease Active Uni vers 3-24 ity of 00:00: [place] 00 Medical Branch Shortness Shortness Disease Active Uni vers of breath of breath 3-11 ity of 00:00: [place] 00 Medical Branch SOB SOB Disease Active Univers (shortness (shortness 2-21 it y of of breath) of breath) [place] Chronic Chronic Disease Active 2018-09 Univers combined combined 2-08 ity of systolic systolic 00:00: [place] and and 00 Medical diastolic diastolic Bran ch congestive congestive heart heart failure failure PAF PAF Disease Active 2018-09 Univers (paroxysma [...] Active 2013-09 Univers 2-12 ity of 00:00: [place] [address] Medical Branch Atrial Atrial Disease Active 2013-09 Univers fibrillati fibrillati 10-28 it y of on on 00:00: [place] [address] Medical Branch VT VT Disease Active 2013-09 Univers (ventricul (ventricul 10-28 it y of ar ar 00:00: [place] tachycardi tachycardi 00 Me dical a) a) Branch Allergies, Adverse Reactions, Alerts Allergy Allergy Status Severity Reaction(s) Onset Inactive Treating Comm ents Source Name Type Date Date Clinician No Known DA Active U 2019-09 [facility] 0 [facility] 00:00: [address] No Known DA Active U 2019-09 [facility] Allergie 0 [facility] 00:00: [address] NO KNOWN Drug Active [facility] ALLERGIE Class ity of S [place] [facility] Social History Social Habit Start Date Stop Date Quantity Comments Source History of tobacco Passive smoker Un iversity of use [place] [facility] History SDOH Social Unive rsity of Connections [facility] Med ical Together Branch History SDOH Social Unive rsity of [facility] Medical Branch History SDOH Social Unive rsity of [facility] Medical Membership Branch History SDOH Social Unive rsity of [facility] Medical Meetings Branch Alcohol intake 2023-03-01 2023-03-01 Current drinker Unive rsity of 00:00:00 00:00:00 of alcohol [place] [facility] (finding) Branch History SDOH 2023-02-18 2023-02-18 2 University o f Housing Unable to 00:00:00 00:00:00 [place] M edical Pay Branch History SDOH 2023-02-18 2023-02-18 1 University o f Housing Places 00:00:00 00:00:00 [place] Medi lucho Lived Branch History SDOH 2023-02-18 2023-02-18 2 University o f Housing Homeless 00:00:00 00:00:00 [place] Me dical Last Year Branch History SDOH 2023-02-18 2023-02-18 1 University o f Alcohol Frequency 00:00:00 00:00:00 [place] M edical Branch History SDGA Social 2023-02-18 2023-02-18 5 Unive rsity of Connections Phone 00:00:00 00:00:00 [facility] edical Branch History SDGA Social 2023-02-18 2023-02-18 7 Unive rsity of Connections Living 00:00:00 00:00:00 [place] [facility] History SDGA 2023-02-18 2023-02-18 0 University o f Physical Activity 00:00:00 00:00:00 [facility] edical DPW Branch History SDGA 2023-02-18 2023-02-18 0 University o f Physical Activity 00:00:00 00:00:00 [facility] edical MPS Branch History SDGA 2023-02-18 2023-02-18 5 University o f Financial 00:00:00 00:00:00 [place] [facility] History SDGA Food 2023-02-18 2023-02-18 1 Univers ity of Worry 00:00:00 00:00:00 [place] [facility] History SDGA Food 2023-02-18 2023-02-18 1 Univers ity of Scarcity 00:00:00 00:00:00 [place] [facility] History SDGA 2023-02-18 2023-02-18 2 University o f Transport Med 00:00:00 00:00:00 [place] Medic al Branch History SDGA 2023-02-18 2023-02-18 2 University o f Transport Non-Med 00:00[facility]00 [facility] 2023-02-05 2023-02-15 Not sure University of SARS-CoV-2 (event) 00:00:00 15:15:00 [place] [facility] History SDGA 2022-12-02 2022-12-02 3 University o f Alcohol Std Drinks 00:00:00 00:00:00 [place] [facility] History SDGA 2022-12-02 2022-12-02 1 University o f Alcohol Binge 00:00:00 00:00:00 [place] [facility] Cigarettes smoked 2022-11-09 2022-11-09 Univers ity of current (pack per 00:00:00 00:00:00 [facility] day) - Reported Branch Tobacco use and 2022-11-09 2022-11-09 User of Universit y of exposure 00:00:00 00:00:00 smokeless [facility] tobacco [employer] 2022-11-09 2022-11-09 13 University of 00:00:00 00:00:00 [facility] Alcohol Comment 2014-08-27 2014-08-27 8 drinks per day Uni versity of 00:00:00 00:00:00 [facility] Sex Assigned At [address] [facility] y of 00:00:00 00:00:00 [facility] Smoking Status Start Date Stop Date Source Smokes tobacco daily 2022-11-09 00:00:00 Univers ity [facility] Medications Ordered Filled Start Stop Current Ordering Indication Dosage Frequency Signature Comments Components Source Medication Medication Date Date Medication? Clinician (SIG) Name Name albuterol Yes [id number] 2.5mg Inhale 3 Univers 2.5 mg /3 6-15 mL every 4 ity of mL (0.083 00:00: (four) [place] %) 00 hours. May Medical nebulizer also Branch solution nebulize one extra every 6 hours. donepeziL 5 0 Yes [id number] 5mg Take 1 Univers mg tablet 6-13 tablet by ity o f 00:00: mouth in [place] 00 the Medical morning. Branch memantine 5 0 Yes [id number] 5mg Take 1 Univers mg tablet 6-13 tablet by ity o f 00:00: mouth in [place] 00 the Medical morning. Branch donepeziL 5 2022-0 Yes [id number] 5mg Take 1 Univers mg tablet 6-13 tablet by ity o f 00:00: mouth in [place] 00 the Medical morning. Branch memantine 5 0 Yes [id number] 5mg Take 1 Univers mg tablet 6-13 tablet by ity o f 00:00: mouth in [place] 00 the Medical morning. Branch donepeziL 5 0 Yes [id number] 5mg Take 1 Univers mg tablet 6-13 tablet by ity o f 00:00: mouth in [place] 00 the Medical morning. Branch memantine 5 2022-0 Yes [id number] 5mg Take 1 Univers mg tablet 6-13 tablet by ity o f 00:00: mouth in [place] 00 the Medical morning. Branch busPIRone Yes 10mg Take 1 Univer s 10 mg 6-02 tablet by ity of tablet 16:15: mouth in [place] [address] the Medical morning Branch and 1 tablet in the evening. rivaroxaban 2023-0 Yes 15mg Take 1 Univ ers 15 mg 6-02 tablet by ity of tablet 16:15: mouth in [place] [address] the Medical morning. Branch ASPIRIN 2023-0 Yes 81mg Take 81 mg Univ ers ORAL 6-02 by mouth ity of 16:15: in the [place] [address] morning. Medical tablet Branch busPIRone 2023-0 Yes 10mg Take 1 Univer s 10 mg 6-02 tablet by ity of tablet 16:15: mouth in [place] [address] the Medical morning Branch and 1 tablet in the evening. rivaroxaban 2023-0 Yes 15mg Take 1 Univ ers 15 mg 6-02 tablet by ity of tablet 16:15: mouth in [place] [address] the Medical morning. Branch ASPIRIN 2023-0 Yes 81mg Take 81 mg Univ ers ORAL 6-02 by mouth ity of 16:15: in the [place] [address] morning. Medical tablet Branch busPIRone 2023-0 Yes 10mg Take 1 Univer s 10 mg 6-02 tablet by ity of tablet 16:15: mouth in [place] [address] the Medical morning Branch and 1 tablet in the evening. rivaroxaban 2023-0 Yes 15mg Take 1 Univ ers 15 mg 6-02 tablet by ity of tablet 16:15: mouth in [place] [address] the Medical morning. Branch ASPIRIN 2023-0 Yes 81mg Take 81 mg Univ ers ORAL 6-02 by mouth ity of 16:15: in the [place] [address] morning. Medical tablet Branch busPIRone 2023-0 Yes 10mg Take 1 Univer s 10 mg 6-02 tablet by ity of tablet 16:15: mouth in [place] [address] the Medical morning Branch and 1 tablet in the evening. rivaroxaban 2023-0 Yes 15mg Take 1 Univ ers 15 mg 6-02 tablet by ity of tablet 16:15: mouth in [place] [address] the Medical morning. Branch ASPIRIN 2023-0 Yes 81mg Take 81 mg Univ ers ORAL 6-02 by mouth ity of 16:15: in the [place] [address] morning. Medical tablet Branch busPIRone 2023-0 Yes 10mg Take 1 Univer s 10 mg 6-02 tablet by ity of tablet 16:15: mouth in [place] [address] the Medical morning Branch and 1 tablet in the evening. rivaroxaban 2023-0 Yes 15mg Take 1 Univ ers 15 mg 6-02 tablet by ity of tablet 16:15: mouth in [place] [address] the Medical morning. Branch ASPIRIN 2023-0 Yes 81mg Take 81 mg Univ ers ORAL 6-02 by mouth ity of 16:15: in the [place] [address] morning. Medical tablet Branch busPIRone 2023-0 Yes 10mg Take 1 Univer s 10 mg 6-02 tablet by ity of tablet 16:15: mouth in [place] [address] the Medical morning Branch and 1 tablet in the evening. rivaroxaban 2023-0 Yes 15mg Take 1 Univ ers 15 mg 6-02 tablet by ity of tablet 16:15: mouth in [place] [address] the Medical morning. Branch ASPIRIN 2023-0 Yes 81mg Take 81 mg Univ ers ORAL 6-02 by mouth ity of 16:15: in the [place] [address] morning. Medical tablet Branch busPIRone 2023-0 Yes 10mg Take 1 Univer s 10 mg 6-02 tablet by ity of tablet 16:15: mouth in [place] [address] the Medical morning Branch and 1 tablet in the evening. rivaroxaban 2023-0 Yes 15mg Take 1 Univ ers 15 mg 6-02 tablet by ity of tablet 16:15: mouth in [place] [address] the Medical morning. Branch ASPIRIN 3-0 Yes 81mg Take 81 mg Univ ers ORAL 6-02 by mouth ity of 16:15: in the [place] [address] morning. Medical tablet Branch predniSONE 2023-0 2023- Yes [id number] 40mg Take 2 Univers 20 mg 6-02 06-06 tablets by ity of tablet 00:00: 04:59 mouth in [place] 00 :00 the Medical morning Branch for 3 days. predniSONE 2023-0 2023- Yes [id number] 40mg Take 2 Univers 20 mg 6-02 06-06 tablets by ity of tablet 00:00: 04:59 mouth in [place] 00 :00 the Medical morning Branch for 3 days. predniSONE 2023-0 2023- Yes [id number] 40mg Take 2 Univers 20 mg 6-02 06-06 tablets by ity of tablet 00:00: 04:59 mouth in [place] 00 :00 the Medical morning Branch for 3 days. midodrine 5 2023-0 Yes [id number] 5mg Take 1 Univers mg tablet 6-01 tablet by ity o f 00:00: mouth [place] 00 every 8 Medical (eight) Branch hours as needed (Hypotensi on SBP <95 or DBP <50). midodrine 5 2022-0 Yes [id number] 5mg Take 1 Univers mg tablet 6-01 tablet by ity o f 00:00: mouth [place] 00 every 8 Medical (eight) Branch hours as needed (Hypotensi on SBP <95 or DBP <50). midodrine 5 2022-0 Yes [id number] 5mg Take 1 Univers mg tablet 6-01 tablet by ity o f 00:00: mouth [place] 00 every 8 Medical (eight) Branch hours as needed (Hypotensi on SBP <95 or DBP <50). midodrine 5 2022-0 Yes [id number] 5mg Take 1 Univers mg tablet 6-01 tablet by ity o f 00:00: mouth [place] 00 every 8 Medical (eight) Branch hours as needed (Hypotensi on SBP <95 or DBP <50). midodrine 5 2022-0 Yes [id number] 5mg Take 1 Univers mg tablet 6-01 tablet by ity o f 00:00: mouth [place] 00 every 8 Medical (eight) Branch hours as needed (Hypotensi on SBP <95 or DBP <50). midodrine 5 2022-0 Yes [id number] 5mg Take 1 Univers mg tablet 6-01 tablet by ity o f 00:00: mouth [place] 00 every 8 Medical (eight) Branch hours as needed (Hypotensi on SBP <95 or DBP <50). midodrine 5 2022-0 Yes [id number] 5mg Take 1 Univers mg tablet 6-01 tablet by ity o f 00:00: mouth [place] 00 every 8 Medical (eight) Branch hours as needed (Hypotensi on SBP <95 or DBP <50). midodrine 2022-0 Yes 5mg 5 mg, Univers (PROAMATINE 5-31 Oral, Q8H, it y of ) tablet 5 19:00: First dose [place] mg 00 on Tue Medical 02/16/23 at Branch 1400, Until Discontinu ed, Routine rivaroxaban 2022-0 Yes 15mg 15 mg, Univ ers (XARELTO) 5-31 Oral, ity of tablet 15 14:00: DAILY, [place] mg 00 First dose Medical on Tue Branch 02/16/23 at 0900, Until Discontinu ed, Routine montelukast Yes 10mg 10 mg, Univ ers (SINGULAIR) 02-16 Oral, ity of tablet 10 14:00: DAILY, [place] mg 00 First dose Medical on Tue Branch 02/16/23 at 0900, Until Discontinu ed, Routine memantine Yes 5mg 5 mg, Univers (NAMENDA) 02-16 Oral, ity of tablet 5 mg 14:00: [place], [place] First dose Medical on Tue Branch 02/16/23 at 0900, Until Discontinu ed, Routine
outreach team member approving Restricted medication : DEDRICK TOTH donepeziL Yes 5mg 5 mg, Univers (ARICEPT) 02-16 Oral, ity of tablet 5 mg 14:00: DAILY, [place] First dose Medical on Tue Branch 02/16/23 at 0900, Until Discontinu ed, Routine aspirin EC Yes 81mg 81 mg, Unive rs tablet 81 02-16 Oral, ity of mg 14:00: DAILY, [place] 00 First dose Medical on Tue Branch 02/16/23 at 0900, Until Discontinu ed docusate Yes 100mg 100 mg, Unive rs (COLACE) 02-16 Oral, ity of capsule 100 14:00: DAILY, [place] mg 00 First dose Medical on Tue Branch 02/16/23 at 0900, Until Discontinu ed, Routine predniSONE 2022- Yes 40mg 40 mg, Univ ers (DELTASONE) 02-16-05 Oral, ity of tablet 40 14:00: 13:59 DAILY, 5 [place] mg 00 :00 doses, Medical First dose Branch on Tue02/16/23 at 0900, Last dose on Tue02/20/23 at 0900, Routine sulfur 2022- No [id number] 5mL 5 mL, Unive rs hexafluorid 02-16 Intravenou i ty of e microsphr 14:00: 14:00 s, ONCE, 1 [place] (LUMASON) 00 :00 dose, On Medica l injection 5 Tue Branch mL 02/16/23 at 0900, Routine
outreach team member approving Restricted medication : STEFFANIE REYES budesonide- 0 Yes 2{puff} 2 Puff, [facility] formoteroL 02-16 Inhalation ity of (SYMBICORT) 13:00: , BID, [place] 160-4.5 00 First dose Medica l mcg/actuati on Tue Branch on inhaler 02/16/23 at 2 Puff 0800, Until Discontinu ed busPIRone Yes 10mg 10 mg, Univer s (BUSPAR) 02-16 Oral, BID, ity o f tablet 10 13:00: First dose [place] mg 00 on Tue Medical 02/16/23 at Branch 0800, Until Discontinu ed, Routine methylpredn 2022- No 60mg 60 mg, Uni vers isolone sod 02-16 Intravenou i ty of succ 05:43: 05:51 s, ONCE, 1 [place] (SOLU-MEDRO 00 :00 dose, On Medi lucho L) Tue Branch injection 02/16/23 at 60 mg 0045, 2 mL levoFLOXaci 2022- No 500mg 500 mg, IV Univers n in D5W 02-16 Piggyback, ity of (LEVAQUIN) 02:00: 21:57 at 100 [place] 500 mg/100 00 :07 mL/hr Medical mL Administer Branch Piggyback over 60 500 mg Minutes, Q24H ABX, 3 doses, First dose on Tue02/15/23 at 2100, Last dose on Tue02/17/23 at 2100, MICHAEL
Re ason for Anti-Infec tive: Documented Infection< br>Documen anirudh Infection Site: Respirator y
Durat ion of Therapy: 7 days<br&gt ;Restricte d use approved by: ADC PROVIDER doxycycline No 100mg 100 mg, U nivers hyclate 02-16 Oral, Q12H ity o f (Vibramycin 01:02: 21:57 ABX, 10 [place] capsule 11 :07 doses, Medical 100 mg First dose Branch on Tue02/15/23 at 2015, Last dose on Tue02/20/23 at 0815, MICHAEL
Re ason for Anti-Infec tive: Documented Infection< br>Documen anirudh Infection Site: Respirator y
Durat ion of Therapy: 7 days NaCl 0.9% 2022- No 1000mL at 100 Uni vers (NS) IV 02-16 05-31 mL/hr, IV ity of infusion 01:00: 12:47 Infusion, [place] 1,000 mL 00 :05 CONTINUOUS Medic al , Starting Branch on Tue02/15/23 at 2000, Until Tue02/16/23 at 0747, Routine ipratropium Yes 3mL 3 mL, Unive rs -albuteroL 02-16 Inhalation ity of (DUONEB) 00:53: , Q6HPRN, [place] 0.5 mg-3 35 Starting Medical mg(2.5 mg on [facility] [place] base)/3 mL 02/15/23 at nebulizer 1952, solution 3 Until mL Discontinu ed, Routine, Wheezing, Shortness of Breath HYDROcodone 0 Yes 1{tbl} 1 tablet, Univers -acetaminop 02-16 Oral, ity of hen (NORCO) 00:52: Q6HPRN, [place] 10-325 mg 26 Starting Medica l tablet 1 on [facility] tablet 02/15/23 at 1951, Until Discontinu ed, Routine, Pain (scale 7-10) traMADoL 2022- No 50mg 50 mg, Univer s (ULTRAM) 02-16 06-02 Oral, ity of tablet 50 00:52: 00:51 Q8HPRN, [place] mg 22 :22 Starting Medical on [facility] 02/15/23 at 1951, Until [place] 02/17/23 at 1950, Routine, Pain (scale 4-6) acetaminoph 0 Yes 650mg 650 mg, Un igor en 02-16 Oral, ity of (TYLENOL) 00:52: Q6HPRN, [place] tablet 650 16 Starting Medic al mg on [facility] [place] 02/15/23 at 1951, Until Discontinu ed, Routine, Pain (scale 1-3) NaCl 0.9% 2022- No 1000mL at 999 Uni vers (NS) bolus 02-15 05-30 mL/hr, ity of infusion 22:15: 22:51 1,000 mL, [place] 1,000 mL 00 :00 IV Medical Infusion, Branch ONCE, 1 dose, On Tue02/15/23 at 1715, MICHAEL NaCl 0.9% 2022-0 2022- No 1000mL at 999 Uni vers (NS) bolus 5-30 05-30 mL/hr, ity of infusion 21:30: 22:43 1,000 mL, [place] 1,000 mL 00 :00 IV Medical Infusion, Branch ONCE, 1 dose, On Tue02/15/23 at 1630, MICHAEL NaCl 0.9% 2022-0 2022- No 1000mL at 999 Uni vers (NS) bolus 5-30 05-30 mL/hr, ity of infusion 20:45: 22:43 1,000 mL, [place] 1,000 mL 00 :00 IV Medical Infusion, Branch ONCE, 1 dose, On Tue02/15/23 at 1545, MICHAEL ipratropium 2022-0 2022- Yes 3mL 3 mL, Univ ers -albuteroL 02-05 Inhalation it y of (DUONEB) 22:15: 10:14 , ONCE, 1 [place] 0.5 mg-3 00 :00 dose, On Medical mg(2.5 mg Sat Branch base)/3 mL 02/05/23 at nebulizer 1715, MICHAEL solution 3 mL ipratropium 2022- No 3mL 3 mL, Univ ers -albuteroL 02-05-20 Inhalation it y of (DUONEB) 21:15: 20:17 , ONCE, 1 [place] 0.5 mg-3 00 :00 dose, On Medical mg(2.5 mg Sat Branch base)/3 mL 02/05/23 at nebulizer 1615, MICHAEL solution 3 mL predniSONE 2022-2022- No 40mg 40 mg, Univ ers (DELTASONE) 02-05- Oral, ity of tablet 40 20:15: 20:18 ONCE, 1 [place] mg 00 :00 dose, On Medical Sat Branch 02/05/23 at 1515, MICHAEL levalbutero 2022-0 2022- No 2.5mg 2.5 mg, U nivers l (XOPENEX) 02-04 05-19 Inhalation i ty of nebulizer 21:15: 20:31 , ONCE, 1 [place] solution 00 :00 dose, On Medical 2.5 mg Fri Branch 02/04/23 at 1615, Routine ipratropium 2022- No .5mg 0.5 mg, Un igor (ATROVENT) 02-0419 Inhalation it y of 0.02 % 21:15: 20:31 , ONCE, 1 [place] nebulizer 00 :00 dose, On Medica l solution Fri Branch 0.5 mg 02/04/23 at 1615, MICHAEL albuterol Yes [id number] 2{puff} Inhale 2 Univers 90 5-19 Puffs ity of mcg/actuati 00:00: every 4 [place] on inhaler 00 (four) Medical hours as Branch needed for Wheezing or Shortness of Breath. albuterol Yes [id number] 2{puff} Inhale 2 Univers 90 5-19 Puffs ity of mcg/actuati 00:00: every 4 [place] on inhaler 00 (four) Medical hours as Branch needed for Wheezing or Shortness of Breath. albuterol Yes [id number] 2{puff} Inhale 2 Univers 90 5-19 Puffs ity of mcg/actuati 00:00: every 4 [place] on inhaler 00 (four) Medical hours as Branch needed for Wheezing or Shortness of Breath. albuterol Yes [id number] 2{puff} Inhale 2 Univers 90 5-19 Puffs ity of mcg/actuati 00:00: every 4 [place] on inhaler 00 (four) Medical hours as Branch needed for Wheezing or Shortness of Breath. albuterol Yes [id number] 2{puff} Inhale 2 Univers 90 5-19 Puffs ity of mcg/actuati 00:00: every 4 [place] on inhaler 00 (four) Medical hours as Branch needed for Wheezing or Shortness of Breath. albuterol Yes [id number] 2{puff} Inhale 2 Univers 90 5-19 Puffs ity of mcg/actuati 00:00: every 4 [place] on inhaler 00 (four) Medical hours as Branch needed for Wheezing or Shortness of Breath. albuterol Yes [id number] 2{puff} Inhale 2 Univers 90 5-19 Puffs ity of mcg/actuati 00:00: every 4 [place] on inhaler 00 (four) Medical hours as Branch needed for Wheezing or Shortness of Breath. albuterol Yes [id number] 2{puff} Inhale 2 Univers 90 5-19 Puffs ity of mcg/actuati 00:00: every 4 [place] on inhaler 00 (four) Medical hours as Branch needed for Wheezing or Shortness of Breath. albuterol Yes [id number] 2{puff} Inhale 2 Univers 90 5-19 Puffs ity of mcg/actuati 00:00: every 4 [place] on inhaler 00 (four) Medical hours as Branch needed for Wheezing or Shortness of Breath. albuterol Yes [id number] 2{puff} Inhale 2 Univers 90 5-19 Puffs ity of mcg/actuati 00:00: every 4 [place] on inhaler 00 (four) Medical hours as Branch needed for Wheezing or Shortness of Breath. ipratropium Yes 3mL 3 mL, Unive rs -albuteroL 518 Inhalation ity of (DUONEB) 21:00: , QID, [place] 0.5 mg-3 00 First dose Medic al mg(2.5 mg on [place] Branch base)/3 mL 02/03/23 at nebulizer 1600, solution 3 Until mL Discontinu ed, Routine methylpredn 2022- No 125mg 125 mg, U nivers isolone sod 02-0318 Intravenou i ty of succ 18:45: 18:16 s, ONCE, 1 [place] (SOLU-MEDRO 00 :00 dose, On Medi lucho L) [place] Branch injection 02/03/23 at 125 mg 1345, 2 mL ipratropium 2022- No 3mL 3 mL, Univ ers -albuteroL 02-02 05-17 Inhalation it y of (DUONEB) 23:15: 22:13 , ONCE, 1 [place] 0.5 mg-3 00 :00 dose, On Medical mg(2.5 mg Wed Branch base)/3 mL 02/02/23 at nebulizer 1815, solution 3 Routine mL albuterol 0 Yes [id number] 2{puff} Inhale 2 Univers 90 5-15 Puffs ity of mcg/actuati 00:00: every 4 [place] on inhaler 00 (four) Medical hours as Branch needed for Wheezing, Shortness of Breath or Bronchospa sm. fluticasone 2022-0 Yes [id number] 1{puff} Inhale 1 [facility] propion-bella 5-15 Puff in ity o f meteroL 00:00: the [place] (ADVAIR 00 morning Medical DISKUS) and 1 Puff Branch 250-50 in the mcg/dose evening. inhalation disk montelukast 2022-0 Yes [id number] 10mg Take 1 [facility] 10 mg 5-15 tablet by ity of tablet 00:00: mouth in [place] the Medical morning. Branch tiotropium 0 Yes [id number] 18ug Inhale 1 [facility] 18 mcg 5-15 capsule in ity of inhalation 00:00: the [place] 00 morning. Medical Branch albuterol 0 Yes [id number] 2{puff} Inhale 2 [facility] 90 5-15 Puffs ity of mcg/actuati 00:00: every 4 [place] as on inhaler 00 (four) Medical hours as Branch needed for Wheezing, Shortness of Breath or Bronchospa sm. fluticasone 2022-0 Yes [id number] 1{puff} Inhale 1 [facility] propion-bella 5-15 Puff in ity o f meteroL 00:00: the [place] (ADVAIR 00 morning Medical DISKUS) and 1 Puff Branch 250-50 in the mcg/dose evening. inhalation disk montelukast 2022-0 Yes [id number] 10mg Take 1 [facility] 10 mg 5-15 tablet by ity of tablet 00:00: mouth in [place] the Medical morning. Branch tiotropium 2022-0 Yes [id number] 18ug Inhale 1 [facility] 18 mcg 5-15 capsule in ity of inhalation 00:00: the [place] 00 morning. Medical Branch albuterol 0 Yes [id number] 2{puff} Inhale 2 [facility] 90 5-15 Puffs ity of mcg/actuati 00:00: every 4 [place] on inhaler 00 (four) Medical hours as Branch needed for Wheezing, Shortness of Breath or Bronchospa sm. fluticasone 2022-0 Yes [id number] 1{puff} Inhale 1 [facility] propion-bella 5-15 Puff in ity o f meteroL 00:00: the [place] (ADVAIR 00 morning Medical DISKUS) and 1 Puff Branch 250-50 in the mcg/dose evening. inhalation disk montelukast 2022-0 Yes [id number] 10mg Take 1 [facility] 10 mg 5-15 tablet by ity of tablet 00:00: mouth in [place] 00 the Medical morning. Branch tiotropium 2022-0 Yes [id number] 18ug Inhale 1 [facility] 18 mcg 5-15 capsule in ity of inhalation 00:00: the [place] 00 morning. Medical Branch albuterol 2022-0 Yes [id number] 2{puff} Inhale 2 [facility] 90 5-15 Puffs ity of mcg/actuati 00:00: every 4 [place] on inhaler 00 (four) Medical hours as Branch needed for Wheezing, Shortness of Breath or Bronchospa sm. fluticasone 2022-0 Yes [id number] 1{puff} Inhale 1 [facility] propion-bella 5-15 Puff in ity o f meteroL 00:00: the [place] (ADVAIR 00 morning Medical DISKUS) and 1 Puff Branch 250-50 in the mcg/dose evening. inhalation disk montelukast 2022-0 Yes [id number] 10mg Take 1 [facility] 10 mg 5-15 tablet by ity of tablet 00:00: mouth in [place] 00 the morning. Branch tiotropium 2022-0 Yes [id number] 18ug Inhale 1 [facility] 18 mcg 5-15 capsule in ity of inhalation 00:00: the [place] 00 morning. Medical Branch fluticasone 2022-0 Yes [id number] 1{puff} Inhale 1 [facility] propion-bella 5-15 Puff in ity o f meteroL 00:00: the [place] (ADVAIR 00 morning Medical DISKUS) and 1 Puff Branch 250-50 in the mcg/dose evening. inhalation disk montelukast 2022-0 Yes [id number] 10mg Take 1 [facility] 10 mg 5-15 tablet by ity of tablet 00:00: mouth in [place] 00 the Medical morning. Branch tiotropium 2022-0 Yes [id number] 18ug Inhale 1 [facility] 18 mcg 5-15 capsule in ity of inhalation 00:00: the [place] 00 morning. Medical Branch fluticasone 2022-0 Yes [id number] 1{puff} Inhale 1 [facility] propion-bella 5-15 Puff in ity o f meteroL 00:00: the [place] (ADVAIR 00 morning Medical DISKUS) and 1 Puff Branch 250-50 in the mcg/dose evening. inhalation disk montelukast 2022-0 Yes [id number] 10mg Take 1 [facility] 10 mg 5-15 tablet by ity of tablet 00:00: mouth in [place] 00 the Medical morning. Branch tiotropium 2022-0 Yes [id number] 18ug Inhale 1 [facility] 18 mcg 5-15 capsule in ity of inhalation 00:00: the [place] 00 morning. Medical Branch fluticasone 2022-0 Yes [id number] 1{puff} Inhale 1 [facility] propion-bella 5-15 Puff in ity o f meteroL 00:00: the [place] (ADVAIR 00 morning Medical DISKUS) and 1 Puff Branch 250-50 in the mcg/dose evening. inhalation disk montelukast 2022-0 Yes [id number] 10mg Take 1 [facility] 10 mg 5-15 tablet by ity of tablet 00:00: mouth in [place] the morning. Branch tiotropium 2022-0 Yes [id number] 18ug Inhale 1 [facility] 18 mcg 5-15 capsule in ity of inhalation 00:00: the [place] 00 morning. Medical Branch fluticasone 2022-0 Yes [id number] 1{puff} Inhale 1 [facility] propion-bella 5-15 Puff in ity o f meteroL 00:00: the [place] (ADVAIR 00 morning Medical DISKUS) and 1 Puff Branch 250-50 in the mcg/dose evening. inhalation disk montelukast 2022-0 Yes [id number] 10mg Take 1 [facility] 10 mg 5-15 tablet by ity of tablet 00:00: mouth in [place] 00 the Medical morning. Branch tiotropium 2022-0 Yes [id number] 18ug Inhale 1 [facility] 18 mcg 5-15 capsule in ity of inhalation 00:00: the [place] 00 morning. Medical Branch fluticasone 2022-0 Yes [id number] 1{puff} Inhale 1 [facility] propion-bella 5-15 Puff in ity o f meteroL 00:00: the [place] (ADVAIR 00 morning Medical DISKUS) and 1 Puff Branch 250-50 in the mcg/dose evening. inhalation disk montelukast 2022-0 Yes [id number] 10mg Take 1 [facility] 10 mg 5-15 tablet by ity of tablet 00:00: mouth in [place] 00 the Medical morning. Branch tiotropium 2022-0 Yes [id number] 18ug Inhale 1 [facility] 18 mcg 5-15 capsule in ity of inhalation 00:00: the [place] 00 morning. Medical Branch fluticasone 2022-0 Yes [id number] 1{puff} Inhale 1 [facility] propion-bella 5-15 Puff in ity o f meteroL 00:00: the [place] (ADVAIR 00 morning Medical DISKUS) and 1 Puff Branch 250-50 in the mcg/dose evening. inhalation disk montelukast 2022-0 Yes [id number] 10mg Take 1 [facility] 10 mg 5-15 tablet by ity of tablet 00:00: mouth in [place] 00 the Medical morning. Branch tiotropium 2022-0 Yes [id number] 18ug Inhale 1 [facility] 18 mcg 5-15 capsule in ity of inhalation 00:00: the [place] 00 morning. Medical Branch fluticasone 2022-0 Yes [id number] 1{puff} Inhale 1 [facility] propion-bella 5-15 Puff in ity o f meteroL 00:00: the [place] (ADVAIR 00 morning Medical DISKUS) and 1 Puff Branch 250-50 in the mcg/dose evening. inhalation disk montelukast 2022-0 Yes [id number] 10mg Take 1 [facility] 10 mg 5-15 tablet by ity of tablet 00:00: mouth in [place] 00 the Medical morning. Branch tiotropium 2022-0 Yes [id number] 18ug Inhale 1 [facility] 18 mcg 5-15 capsule in ity of inhalation 00:00: the [place] 00 morning. Medical Branch fluticasone 2022-0 Yes [id number] 1{puff} Inhale 1 [facility] propion-bella 5-15 Puff in ity o f meteroL 00:00: the [place] (ADVAIR 00 morning Medical DISKUS) and 1 Puff Branch 250-50 in the mcg/dose evening. inhalation disk montelukast 3-0 Yes [id number] 10mg Take 1 [facility] 10 mg 5-15 tablet by ity of tablet 00:00: mouth in [place] 00 the Medical morning. Branch tiotropium 3-0 Yes [id number] 18ug Inhale 1 [facility] 18 mcg 5-15 capsule in ity of inhalation 00:00: the [place] 00 morning. Medical Branch fluticasone 3-0 Yes [id number] 1{puff} Inhale 1 [facility] propion-bella 5-15 Puff in ity o f meteroL 00:00: the [place] (ADVAIR 00 morning Medical DISKUS) and 1 Puff Branch 250-50 in the mcg/dose evening. inhalation disk montelukast 2023-0 Yes [id number] 10mg Take 1 [facility] 10 mg 5-15 tablet by ity of tablet 00:00: mouth in [place] 00 the Medical morning. Branch tiotropium 2022-0 Yes [id number] 18ug Inhale 1 [facility] 18 mcg 5-15 capsule in ity of inhalation 00:00: the [place] 00 morning. Medical Branch fluticasone 2022-0 Yes [id number] 1{puff} Inhale 1 [facility] propion-bella 5-15 Puff in ity o f meteroL 00:00: the [place] (ADVAIR 00 morning Medical DISKUS) and 1 Puff Branch 250-50 in the mcg/dose evening. inhalation disk montelukast 3-0 Yes [id number] 10mg Take 1 [facility] 10 mg 5-15 tablet by ity of tablet 00:00: mouth in [place] 00 the Medical morning. Branch tiotropium 2022-0 Yes [id number] 18ug Inhale 1 [facility] 18 mcg 5-15 capsule in ity of inhalation 00:00: the [place] 00 morning. Medical Branch albuterol 2022-0 2022- No [id number] 2{puff} Inhale 2 [facility] 90 5-15 05-19 Puffs ity of mcg/actuati 00:00: 00:00 every 4 [place] on inhaler 00 :00 (four) Medical hours as Branch needed for Wheezing, Shortness of Breath or Bronchospa sm. ipratropium 2022-0 2022- No 3mL 3 mL, Univ ers -albuteroL 5-13 05-13 Inhalation it y of (DUONEB) 14:30: 13:29 , ONCE, 1 [place] 0.5 mg-3 00 :00 dose, On Medical mg(2.5 mg Sat Branch base)/3 mL 01/29/23 at nebulizer 0930, MICHEAL solution 3 mL predniSONE 2022-0 2022- No 60mg 60 mg, Univ ers (DELTASONE) 01-29 Oral, ity of tablet 60 13:30: 13:22 ONCE, 1 [place] mg 00 :00 dose, On Medical Sat Branch 01/29/23 at 0830, MICHAEL ipratropium 2022-0 Yes 3mL 3 mL, Unive rs -albuteroL 01-27 Inhalation ity of (DUONEB) 13:00: , QID, [place] 0.5 mg-3 00 First dose Medic al mg(2.5 mg on [place] base)/3 mL 01/27/23 at nebulizer 0800, solution 3 Until mL Discontinu ed, Routine ipratropium 2022-0 2022- No 3mL 3 mL, Univ ers -albuteroL 01-24- Inhalation it y of (DUONEB) 18:00: 18:15 , ONCE, 1 [place] 0.5 mg-3 00 :00 dose, On Medical mg(2.5 mg 01/24/23 Bran base)/3 mL at 1300, nebulizer MICHAEL solution 3 mL furosemide 2022-0 2022- No 40mg 40 mg, IV U nivers (LASIX) 01-24 Push, ity of injection 18:00: 18:42 ONCE, 1 [place] 40 mg 00 :00 dose, On Medical [facility] 01/24/23 Branch at 1300, MICHAEL aspirin 2022-0 2022- No 325mg 325 mg, Unive rs tablet 325 01-24- Oral, ity of mg 18:00: 18:44 ONCE, 1 [place] 00 :00 dose, On Medical [facility] 01/24/23 Branch at 1300, STAT busPIRone 2022-0 Yes 10mg Take 1 Univer s 10 mg 01-24 tablet by ity of tablet 15:48: mouth in [place] 43 the Medical morning Branch and 1 tablet in the evening. rivaroxaban 2023-0 Yes 15mg Take 1 Univ ers 15 mg 5-08 tablet by ity of tablet 15:48: mouth in [place] [address] the Medical morning. Branch ASPIRIN 2023-0 Yes 81mg Take 81 mg Univ ers ORAL 5-08 by mouth ity of 15:48: in the [place] [address] morning. Medical tablet Branch busPIRone 2023-0 Yes 10mg Take 1 Univer s 10 mg 5-08 tablet by ity of tablet 15:48: mouth in [place] [address] the Medical morning Branch and 1 tablet in the evening. rivaroxaban 2023-0 Yes 15mg Take 1 Univ ers 15 mg 5-08 tablet by ity of tablet 15:48: mouth in [place] [address] the Medical morning. Branch ASPIRIN 2023-0 Yes 81mg Take 81 mg Univ ers ORAL 5-08 by mouth ity of 15:48: in the [place] [address] morning. Medical tablet Branch busPIRone 2023-0 Yes 10mg Take 1 Univer s 10 mg 5-08 tablet by ity of tablet 15:48: mouth in [place] [address] the Medical morning Branch and 1 tablet in the evening. rivaroxaban 2023-0 Yes 15mg Take 1 Univ ers 15 mg 5-08 tablet by ity of tablet 15:48: mouth in [place] [address] the Medical morning. Branch ASPIRIN 2023-0 Yes 81mg Take 81 mg Univ ers ORAL 5-08 by mouth ity of 15:48: in the [place] [address] morning. Medical tablet Branch busPIRone 2023-0 Yes 10mg Take 1 Univer s 10 mg 5-08 tablet by ity of tablet 15:48: mouth in [place] [address] the Medical morning Branch and 1 tablet in the evening. rivaroxaban 2023-0 Yes 15mg Take 1 Univ ers 15 mg 5-08 tablet by ity of tablet 15:48: mouth in [place] [address] the Medical morning. Branch ASPIRIN 2023-0 Yes 81mg Take 81 mg Univ ers ORAL 5-08 by mouth ity of 15:48: in the [place] [address] morning. Medical tablet Branch busPIRone 2023-0 Yes 10mg Take 1 Univer s 10 mg 5-08 tablet by ity of tablet 15:48: mouth in [place] [address] the Medical morning Branch and 1 tablet in the evening. rivaroxaban 2023-0 Yes 15mg Take 1 Univ ers 15 mg 5-08 tablet by ity of tablet 15:48: mouth in [place] [address] the Medical morning. Branch ASPIRIN 2023-0 Yes 81mg Take 81 mg Univ ers ORAL 5-08 by mouth ity of 15:48: in the [place] [address] morning. Medical tablet Branch busPIRone 2023-0 Yes 10mg Take 1 Univer s 10 mg 5-08 tablet by ity of tablet 15:48: mouth in [place] [address] the Medical morning Branch and 1 tablet in the evening. rivaroxaban 2023-0 Yes 15mg Take 1 Univ ers 15 mg 5-08 tablet by ity of tablet 15:48: mouth in [place] [address] the Medical morning. Branch ASPIRIN 2023-0 Yes 81mg Take 81 mg Univ ers ORAL 5-08 by mouth ity of 15:48: in the [place] [address] morning. Medical tablet Branch busPIRone 2023-0 Yes 10mg Take 1 Univer s 10 mg 5-08 tablet by ity of tablet 15:48: mouth in [place] [address] the Medical morning Branch and 1 tablet in the evening. rivaroxaban 2023-0 Yes 15mg Take 1 Univ ers 15 mg 5-08 tablet by ity of tablet 15:48: mouth in [place] [address] the Medical morning. Branch ASPIRIN 2023-0 Yes 81mg Take 81 mg Univ ers ORAL 5-08 by mouth ity of 15:48: in the [place] [address] morning. Medical tablet Branch busPIRone 2023-0 Yes 10mg Take 1 Univer s 10 mg 5-08 tablet by ity of tablet 15:48: mouth in [place] [address] the Medical morning Branch and 1 tablet in the evening. rivaroxaban 2023-0 Yes 15mg Take 1 Univ ers 15 mg 5-08 tablet by ity of tablet 15:48: mouth in [place] [address] the Medical morning. Branch ASPIRIN 2023-0 Yes 81mg Take 81 mg Univ ers ORAL 5-08 by mouth ity of 15:48: in the [place] [address] morning. Medical tablet Branch busPIRone 2023-0 Yes 10mg Take 1 Univer s 10 mg 5-08 tablet by ity of tablet 15:48: mouth in [place] [address] the Medical morning Branch and 1 tablet in the evening. rivaroxaban 2023-0 Yes 15mg Take 1 Univ ers 15 mg 5-08 tablet by ity of tablet 15:48: mouth in [place] [address] the Medical morning. Branch ASPIRIN 2023-0 Yes 81mg Take 81 mg Univ ers ORAL 5-08 by mouth ity of 15:48: in the [place] [address] morning. Medical tablet Branch busPIRone 2023-0 Yes 10mg Take 1 Univer s 10 mg 5-08 tablet by ity of tablet 15:48: mouth in [place] [address] the Medical morning Branch and 1 tablet in the evening. rivaroxaban 2023-0 Yes 15mg Take 1 Univ ers 15 mg 5-08 tablet by ity of tablet 15:48: mouth in [place] [address] the Medical morning. Branch ASPIRIN 2023-0 Yes 81mg Take 81 mg Univ ers ORAL 5-08 by mouth ity of 15:48: in the [place] [address] morning. Medical tablet Branch busPIRone 2023-0 Yes 10mg Take 1 Univer s 10 mg 5-08 tablet by ity of tablet 15:48: mouth in [place] [address] the Medical morning Branch and 1 tablet in the evening. rivaroxaban 2023-0 Yes 15mg Take 1 Univ ers 15 mg 5-08 tablet by ity of tablet 15:48: mouth in [place] [address] the Medical morning. Branch ASPIRIN 2023-0 Yes 81mg Take 81 mg Univ ers ORAL 5-08 by mouth ity of 15:48: in the [place] [address] morning. Medical tablet Branch busPIRone 2023-0 Yes 10mg Take 1 Univer s 10 mg 5-08 tablet by ity of tablet 15:48: mouth in [place] [address] the Medical morning Branch and 1 tablet in the evening. rivaroxaban 2023-0 Yes 15mg Take 1 Univ ers 15 mg 5-08 tablet by ity of tablet 15:48: mouth in [place] [address] the Medical morning. Branch ASPIRIN 2023-0 Yes 81mg Take 81 mg Univ ers ORAL 5-08 by mouth ity of 15:48: in the [place] [address] morning. Medical tablet Branch busPIRone 2023-0 Yes 10mg Take 1 Univer s 10 mg 5-08 tablet by ity of tablet 15:48: mouth in [place] [address] the Medical morning Branch and 1 tablet in the evening. rivaroxaban 2023-0 Yes 15mg Take 1 Univ ers 15 mg 5-08 tablet by ity of tablet 15:48: mouth in [place] [address] the Medical morning. Branch ASPIRIN 2023-0 Yes 81mg Take 81 mg Univ ers ORAL 5-08 by mouth ity of 15:48: in the [place] [address] morning. Medical tablet Branch levalbutero 2023-0 2023- No 1.25mg 1.25 mg, Univers l (XOPENEX) 01-23-06 Inhalation i ty of nebulizer 00:15: 23:35 , ONCE, 1 [place] solution 00 :00 dose, On Medical 1.25 mg 01/22/23 Branch at 1915, Routine ipratropium 2022- No .5mg 0.5 mg, Un igor (ATROVENT) 01-2206 Inhalation it y of 0.02 % 23:30: 23:36 , ONCE, 1 [place] nebulizer 00 :00 dose, On Medica l solution 01/22/23 Branc h 0.5 mg at 1830, MICHAEL diltiazem Yes 30mg 30 mg, Univer s (CARDIZEM) 05 Oral, Q6H, ity of tablet 30 23:00: First dose [place] mg 00 on Tue Medical 01/21/23 at Branch 1800, Until Discontinu ed, Routine methylpredn Yes 125mg 125 mg, Un igor isolone sod 05 Intravenou it y of succ 23:00: s, Q6H, [place] (SOLU-MEDRO 00 First dose Me dical L) on Tue Branch injection 01/21/23 at 125 mg 1800, Until Discontinu ed, Routine ipratropium 2022- No 3mL 3 mL, Univ ers -albuteroL 01-21-05 Inhalation it y of (DUONEB) 20:45: 19:54 , ONCE, 1 [place] as 0.5 mg-3 00 :00 dose, On Medical mg(2.5 mg 01/21/23 Bran ch base)/3 mL at 1545, nebulizer Routine solution 3 mL diltiazem 2022- No 15mg 15 mg, IV Un igor (CARDIZEM 01-2105 Push, ity of IV) 19:45: 20:06 ONCE, 1 [place] injection 00 :00 dose, On Medica l 15 mg Tue01/21/23 Branch at 1445, STAT
Fa culty member approving Restricted medication : LOUIS HONG NaCl 0.9% 2022- No 1000mL at 999 Uni vers (NS) bolus 5-05 05-05 mL/hr, ity of infusion 19:45: 22:17 1,000 mL, [place] as 1,000 mL 00 :00 IV Medical Infusion, Branch ONCE, 1 dose, On Tue01/21/23 at 1445, STAT predniSONE 2022- Yes [id number] 40mg Take 2 [facility] 20 mg 5-04 05-09 tablets by ity of tablet 00:00: 04:59 mouth in [place] 00 :00 the Medical morning Branch for 4 days. predniSONE 2022- Yes [id number] 40mg Take 2 Univers 20 mg 5-04 05-09 tablets by ity of tablet 00:00: 04:59 mouth in [place] 00 :00 the Medical morning Branch for 4 days. predniSONE 2022- Yes [id number] 40mg Take 2 [facility] 20 mg 5-04 05-09 tablets by ity of tablet 00:00: 04:59 mouth in [place] 00 :00 the [facility] morning Branch for 4 days. predniSONE 2022- Yes [id number] 40mg Take 2 Univers 20 mg 5-04 05-09 tablets by ity of tablet 00:00: 04:59 mouth in [place] 00 :00 the [facility] for 4 days. predniSONE 2022- Yes [id number] 40mg Take 2 Univers 20 mg 5-04 05-09 tablets by ity of tablet 00:00: 04:59 mouth in [place] 00 :00 the [facility] morning Branch for 4 days. predniSONE 2022- Yes [id number] 40mg Take 2 Univers 20 mg 5-04 05-09 tablets by ity of tablet 00:00: 04:59 mouth in [place] 00 :00 the [facility] for 4 days. predniSONE 2022- Yes [id number] 40mg Take 2 Univers 20 mg 5-04 05-09 tablets by ity of tablet 00:00: 04:59 mouth in [place] 00 :00 the [facility] Branch for 4 days. enoxaparin Yes 40mg 40 mg, Unive rs (LOVENOX) -03 Subcutaneo ity of injection 22:00: [place], DAILY, [place] 40 mg 00 First dose Medical on Tue01/19/23 at 1700, Until Discontinu ed, Routine levalbutero 3-0 Yes 1.25mg 1.25 mg, Univers l (XOPENEX) 5-03 Inhalation it y of nebulizer 21:00: , QID, [place] solution 00 First dose Medic al 1.25 mg (after Branch last modificati on) on Tue01/19/23 at 1600, Until Discontinu ed, Routine ipratropium 3-0 Yes .5mg 0.5 mg, Uni vers (ATROVENT) 5-03 Inhalation ity of 0.02 % 21:00: , QID, [place] nebulizer 00 First dose Medi lucho solution (after Branch 0.5 mg last modificati on) on Tue01/19/23 at 1600, Until Discontinu ed, Routine rivaroxaban 3-0 Yes 15mg Take 1 Univ ers 15 mg 5-03 tablet by ity of tablet 19:49: mouth in [place] [address] the Medical morning. Branch ASPIRIN 3-0 Yes 81mg Take 81 mg Univ ers ORAL 5-03 by mouth ity of 19:49: in the [place] [address] morning. Medical tablet Branch busPIRone 3-0 Yes 10mg Take 1 Univer s 10 mg 5-03 tablet by ity of tablet 19:49: mouth in [place] [address] the Medical morning Branch and 1 tablet in the evening. rivaroxaban 3-0 Yes 15mg Take 1 Univ ers 15 mg 5-03 tablet by ity of tablet 19:49: mouth in [place] [address] the Medical morning. Branch ASPIRIN 3-0 Yes 81mg Take 81 mg Univ ers ORAL 5-03 by mouth ity of 19:49: in the [place] [address] morning. Medical tablet Branch busPIRone 3-0 Yes 10mg Take 1 Univer s 10 mg 5-03 tablet by ity of tablet 19:49: mouth in [place] [address] the Medical morning Branch and 1 tablet in the evening. rivaroxaban 3-0 Yes 15mg Take 1 Univ ers 15 mg 5-03 tablet by ity of tablet 19:49: mouth in [place] [address] the Medical morning. Branch ASPIRIN 2023-0 Yes 81mg Take 81 mg Univ ers ORAL 5-03 by mouth ity of 19:49: in the [place] [address] morning. Medical tablet Branch busPIRone 3-0 Yes 10mg Take 1 Univer s 10 mg 5-03 tablet by ity of tablet 19:49: mouth in [place] [address] the Medical morning Branch and 1 tablet in the evening. rivaroxaban 2023-0 Yes 15mg Take 1 Univ ers 15 mg 5-03 tablet by ity of tablet 19:49: mouth in [place] [address] the Medical morning. Branch ASPIRIN 2023-0 Yes 81mg Take 81 mg Univ ers ORAL 5-03 by mouth ity of 19:49: in the [place] [address] morning. Medical tablet Branch busPIRone 3-0 Yes 10mg Take 1 Univer s 10 mg 5-03 tablet by ity of tablet 19:49: mouth in [place] [address] the Medical morning Branch and 1 tablet in the evening. rivaroxaban 2023-0 Yes 15mg Take 1 Univ ers 15 mg 5-03 tablet by ity of tablet 19:49: mouth in [place] [address] the Medical morning. Branch ASPIRIN 3-0 Yes 81mg Take 81 mg Univ ers ORAL 5-03 by mouth ity of 19:49: in the [place] [address] morning. Medical tablet Branch busPIRone 3-0 Yes 10mg Take 1 Univer s 10 mg 5-03 tablet by ity of tablet 19:49: mouth in [place] [address] the Medical morning Branch and 1 tablet in the evening. rivaroxaban 3-0 Yes 15mg Take 1 Univ ers 15 mg 5-03 tablet by ity of tablet 19:49: mouth in [place] [address] the Medical morning. Branch ASPIRIN 3-0 Yes 81mg Take 81 mg Univ ers ORAL 5-03 by mouth ity of 19:49: in the [place] [address] morning. Medical tablet Branch busPIRone 3-0 Yes 10mg Take 1 Univer s 10 mg 5-03 tablet by ity of tablet 19:49: mouth in [place] [address] the Medical morning Branch and 1 tablet in the evening. benazepriL 3-0 2022- No 10mg Take 1 Univ ers 10 mg 5-03 05-03 tablet by ity of tablet 17:28: 00:00 mouth in [place] 05 :00 the Medical morning. Branch potassium 2023-0 2023- No 1{tbl} Take 1 Uni vers chloride 5-03 05-03 tablet by ity o f (KCL-20 17:28: 00:00 mouth in [place] ORAL) 05 :00 the Medical morning Branch and 1 tablet in the evening. aspirin 2023-0 Yes 81mg 81 mg, Univers chewable 5-03 Oral, ity of tablet 81 14:00: DAILY, [place] mg 00 First dose Medical on Tue Branch 01/19/23 at 0900, Until Discontinu ed predniSONE 2022- Yes 40mg 40 mg, Univ ers (DELTASONE) 01-19 Oral, ity of tablet 40 14:00: 13:59 DAILY, 5 [place] mg 00 :00 doses, Medical First dose Branch on Tue01/19/23 at 0900, Last dose on Tue01/23/23 at 0900, Routine busPIRone Yes 10mg 10 mg, Univer s (BUSPAR) 01-19 Oral, BID, ity o f tablet 10 13:00: First dose [place] mg 00 on Tue Medical 01/19/23 at Branch 0800, Until Discontinu ed, Routine ipratropium 2022- No .5mg 0.5 mg, Un igor (ATROVENT) 01-19 Inhalation it y of 0.02 % 13:00: 19:13 , TID, [place] nebulizer 00 :37 First dose Medi lucho solution (after Branch 0.5 mg last modificati on) on Tue01/19/23 at 0800, Until Discontinu ed, Routine levalbutero No 1.25mg 1.25 mg, Univers l (XOPENEX) 01-19 Inhalation i ty of nebulizer 13:00: 19:13 , TID, [place] solution 00 :37 First dose Medic al 1.25 mg on Tue Branch 01/19/23 at 0800, Until Discontinu ed, Routine sodium No 15g 15 g, Univers polystyrene 01-19 Oral, ity of sulfonate 13:00: 13:22 ONCE, 1 [place] (KAYEXALATE 00 :00 dose, On Medi lucho ) 15 Tue01/19/23 Branch gram/60 mL at 0800, suspension Routine 15 g ipratropium No .5mg 0.5 mg, Un igor (ATROVENT) 01-19 Inhalation it y of 0.02 % 09:00: 12:09 , Q4H, [place] nebulizer 00 :19 First dose Medi lucho solution on Tue Branch 0.5 mg 01/19/23 at 0400, Until Discontinu ed, Routine levoFLOXaci 2022- Yes 500mg 500 mg, U nivers n 5- 05-08 Oral, Q24H ity of (LEVAQUIN) 08:15: 08:14 ABX, 5 [place] tablet 500 00 :00 doses, Medical mg First dose Branch on Tue01/19/23 at 0315, Last dose on Tue01/23/23 at 0315, MICHAEL
Re ason for Anti-Infec tive: Empiric Therapy for Suspected Infection< br>Empiric Therapy Site: Respirator y
Durat ion of therapy: 5 days guaiFENesin Yes 200mg 200 mg, [facility] igor 100 mg/5 mL 503 Oral, ity of solution 08:04: Q6HPRN, [place] 200 mg 52 Starting Medical on Tue Branch 01/19/23 at 0304, Until Discontinu ed, Routine, Cough ondansetron Yes 4mg 4 mg, Slow Univers (ZOFRAN 5-03 IV Push, ity of (PF)) 08:03: Q6HPRN, [place] injection 4 53 Starting Medi lucho mg on Tue Branch 01/19/23 at 0303, Until Discontinu ed, Routine, Nausea and Vomiting (N/V) morpHINE (2 2022- Yes 2mg 2 mg, Slow Univers mg/mL) 01-19 05-04 IV Push, ity of injection 2 08:03: 08:02 Q4HPRN, [place] mg 43 :43 Starting Medical on Tue Branch 01/19/23 at 0303, Until [place] 01/20/23 at 0302, Routine, Pain (scale 7-10) HYDROcodone 2022- Yes 1{tbl} 1 tablet, Univers -acetaminop 01-19 05-05 Oral, ity of hen (NORCO 08:03: 08:02 Q6HPRN, [place] as 5) 5-325 mg 39 :39 Starting Medi lucho tablet 1 on Tue Branch tablet 01/19/23 at 0303, Until Tue01/21/23 at 0302, Routine, Pain (scale 4-6) acetaminoph 2023-0 Yes 650mg 650 mg, Un igor en 01-19 Oral, ity of (TYLENOL) 08:03: Q6HPRN, [place] tablet 650 35 Starting Medic al mg on Tue Branch 01/19/23 at 0303, Until Discontinu ed, Routine, Pain (scale 1-3) levalbutero 2022- No 1.25mg 1.25 mg, Univers l (XOPENEX) 01-19 Inhalation i ty of nebulizer 07:30: 07:08 , ONCE, 1 [place] solution 00 :00 dose, On Medical 1.25 mg Tue01/19/23 Branch at 0230, Routine dexamethaso 2022- No 10mg 10 mg, Uni vers ne sod phos 01-19 Oral, ity of PF 06:58: 07:06 ONCE, 1 [place] injection 00 :00 dose, On Medica l 10 mg Tue01/19/23 Branch at 0200, 1 mL ipratropium 2022- No .5mg 0.5 mg, Un igor (ATROVENT) 01-19 Inhalation it y of 0.02 % 06:45: 07:09 , ONCE, 1 [place] nebulizer 00 :00 dose, On Medica l solution Tue01/19/23 Branc h 0.5 mg at 0145, MICHAEL ipratropium 2022-0 Yes [id number] .5mg Inhale 2.5 Univers 0.02 % 5-03 mL every 6 ity of nebulizer 00:00: (six) [place] solution 00 hours as Medical needed for Branch Wheezing, Shortness of Breath, Bronchospa sm or Chest tightness. guaiFENesin 3-0 Yes [id number] 200mg Take 10 mL [facility] 100 mg/5 mL 5-03 by mouth ity of solution 00:00: every 6 [place] 00 (six) Medical hours as Branch needed for Cough. ipratropium 2023-0 Yes [id number] .5mg Inhale 2.5 [facility] 0.02 % 5-03 mL every 6 ity of nebulizer 00:00: (six) [place] solution 00 hours as Medical needed for Branch Wheezing, Shortness of Breath, Bronchospa sm or Chest tightness. guaiFENesin 2023-0 Yes [id number] 200mg Take 10 mL [facility] 100 mg/5 mL 5-03 by mouth ity of solution 00:00: every 6 [place] 00 (six) Medical hours as Branch needed for Cough. ipratropium 2023-0 Yes [id number] .5mg Inhale 2.5 [facility] 0.02 % 5-03 mL every 6 ity of nebulizer 00:00: (six) [place] solution 00 hours as Medical needed for Branch Wheezing, Shortness of Breath, Bronchospa sm or Chest tightness. guaiFENesin 2023-0 Yes [id number] 200mg Take 10 mL [facility] 100 mg/5 mL 5-03 by mouth ity of solution 00:00: every 6 [place] 00 (six) Medical hours as Branch needed for Cough. ipratropium 2023-0 Yes [id number] .5mg Inhale 2.5 [facility] 0.02 % 5-03 mL every 6 ity of nebulizer 00:00: (six) [place] solution 00 hours as Medical needed for Branch Wheezing, Shortness of Breath, Bronchospa sm or Chest tightness. guaiFENesin 2023-0 Yes [id number] 200mg Take 10 mL [facility] 100 mg/5 mL 5-03 by mouth ity of solution 00:00: every 6 [place] 00 (six) Medical hours as Branch needed for Cough. ipratropium 2023-0 Yes [id number] .5mg Inhale 2.5 [facility] 0.02 % 5-03 mL every 6 ity of nebulizer 00:00: (six) [place] solution 00 hours as Medical needed for Branch Wheezing, Shortness of Breath, Bronchospa sm or Chest tightness. guaiFENesin 2023-0 Yes [id number] 200mg Take 10 mL [facility] 100 mg/5 mL 5-03 by mouth ity of solution 00:00: every 6 [place] 00 (six) Medical hours as Branch needed for Cough. ipratropium 2023-0 Yes [id number] .5mg Inhale 2.5 [facility] 0.02 % 5-03 mL every 6 ity of nebulizer 00:00: (six) [place] solution 00 hours as Medical needed for Branch Wheezing, Shortness of Breath, Bronchospa sm or Chest tightness. guaiFENesin 2023-0 Yes [id number] 200mg Take 10 mL [facility] 100 mg/5 mL 5-03 by mouth ity of solution 00:00: every 6 [place] 00 (six) Medical hours as Branch needed for Cough. ipratropium 2023-0 Yes [id number] .5mg Inhale 2.5 [facility] 0.02 % 5-03 mL every 6 ity of nebulizer 00:00: (six) [place] solution 00 hours as Medical needed for Branch Wheezing, Shortness of Breath, Bronchospa sm or Chest tightness. guaiFENesin 2023-0 Yes [id number] 200mg Take 10 mL [facility] 100 mg/5 mL 5-03 by mouth ity of solution 00:00: every 6 [place] 00 (six) Medical hours as Branch needed for Cough. ipratropium 2023-0 Yes [id number] .5mg Inhale 2.5 [facility] 0.02 % 5-03 mL every 6 ity of nebulizer 00:00: (six) [place] solution 00 hours as Medical needed for Branch Wheezing, Shortness of Breath, Bronchospa sm or Chest tightness. guaiFENesin 2023-0 Yes [id number] 200mg Take 10 mL [facility] 100 mg/5 mL 5-03 by mouth ity of solution 00:00: every 6 [place] 00 (six) Medical hours as Branch needed for Cough. ipratropium 2023-0 Yes [id number] .5mg Inhale 2.5 [facility] 0.02 % 5-03 mL every 6 ity of nebulizer 00:00: (six) [place] solution 00 hours as Medical needed for Branch Wheezing, Shortness of Breath, Bronchospa sm or Chest tightness. guaiFENesin 2023-0 Yes [id number] 200mg Take 10 mL [facility] 100 mg/5 mL 5-03 by mouth ity of solution 00:00: every 6 [place] 00 (six) Medical hours as Branch needed for Cough. ipratropium 2023-0 Yes [id number] .5mg Inhale 2.5 [facility] 0.02 % 5-03 mL every 6 ity of nebulizer 00:00: (six) [place] solution 00 hours as Medical needed for Branch Wheezing, Shortness of Breath, Bronchospa sm or Chest tightness. guaiFENesin 2023-0 Yes [id number] 200mg Take 10 mL [facility] 100 mg/5 mL 5-03 by mouth ity of solution 00:00: every 6 [place] 00 (six) Medical hours as Branch needed for Cough. ipratropium 2023-0 Yes [id number] .5mg Inhale 2.5 [facility] 0.02 % 5-03 mL every 6 ity of nebulizer 00:00: (six) [place] solution 00 hours as Medical needed for Branch Wheezing, Shortness of Breath, Bronchospa sm or Chest tightness. guaiFENesin 2023-0 Yes [id number] 200mg Take 10 mL [facility] 100 mg/5 mL 5-03 by mouth ity of solution 00:00: every 6 [place] 00 (six) Medical hours as Branch needed for Cough. ipratropium 2023-0 Yes [id number] .5mg Inhale 2.5 [facility] 0.02 % 5-03 mL every 6 ity of nebulizer 00:00: (six) [place] solution 00 hours as Medical needed for Branch Wheezing, Shortness of Breath, Bronchospa sm or Chest tightness. guaiFENesin 2023-0 Yes [id number] 200mg Take 10 mL [facility] 100 mg/5 mL 5-03 by mouth ity of solution 00:00: every 6 [place] 00 (six) Medical hours as Branch needed for Cough. ipratropium 2023-0 Yes [id number] .5mg Inhale 2.5 [facility] 0.02 % 5-03 mL every 6 ity of nebulizer 00:00: (six) [place] solution 00 hours as Medical needed for Branch Wheezing, Shortness of Breath, Bronchospa sm or Chest tightness. guaiFENesin 2023-0 Yes [id number] 200mg Take 10 mL [facility] 100 mg/5 mL 5-03 by mouth ity of solution 00:00: every 6 [place] 00 (six) Medical hours as Branch needed for Cough. ipratropium 2023-0 Yes [id number] .5mg Inhale 2.5 [facility] 0.02 % 5-03 mL every 6 ity of nebulizer 00:00: (six) [place] solution 00 hours as Medical needed for Branch Wheezing, Shortness of Breath, Bronchospa sm or Chest tightness. guaiFENesin 2023-0 Yes [id number] 200mg Take 10 mL [facility] 100 mg/5 mL 5-03 by mouth ity of solution 00:00: every 6 [place] [address] (six) Medical hours as Branch needed for Cough. ipratropium 2023-0 Yes [id number] .5mg Inhale 2.5 [facility] 0.02 % 5-03 mL every 6 ity of nebulizer 00:00: (six) [place] solution 00 hours as Medical needed for Branch Wheezing, Shortness of Breath, Bronchospa sm or Chest tightness. guaiFENesin 2023-0 Yes [id number] 200mg Take 10 mL [facility] 100 mg/5 mL 5-03 by mouth ity of solution 00:00: every 6 [place] 00 (six) Medical hours as Branch needed for Cough. ipratropium 2023-0 Yes [id number] .5mg Inhale 2.5 Univers 0.02 % 5-03 mL every 6 ity of nebulizer 00:00: (six) [place] solution 00 hours as Medical needed for Branch Wheezing, Shortness of Breath, Bronchospa sm or Chest tightness. guaiFENesin 2023-0 Yes [id number] 200mg Take 10 mL [facility] 100 mg/5 mL 5-03 by mouth ity of solution 00:00: every 6 [place] 00 (six) Medical hours as Branch needed for Cough. ipratropium 2023-0 Yes [id number] .5mg Inhale 2.5 Univers 0.02 % 5-03 mL every 6 ity of nebulizer 00:00: (six) [place] solution 00 hours as Medical needed for Branch Wheezing, Shortness of Breath, Bronchospa sm or Chest tightness. guaiFENesin 2023-0 Yes [id number] 200mg Take 10 mL [facility] 100 mg/5 mL 5-03 by mouth ity of solution 00:00: every 6 [place] 00 (six) Medical hours as Branch needed for Cough. ipratropium 2023-0 Yes [id number] .5mg Inhale 2.5 [facility] 0.02 % 5-03 mL every 6 ity of nebulizer 00:00: (six) [place] solution 00 hours as Medical needed for Branch Wheezing, Shortness of Breath, Bronchospa sm or Chest tightness. guaiFENesin 2023-0 Yes [id number] 200mg Take 10 mL [facility] 100 mg/5 mL 5-03 by mouth ity of solution 00:00: every 6 [place] 00 (six) Medical hours as Branch needed for Cough. ipratropium 2023-0 Yes [id number] .5mg Inhale 2.5 Univers 0.02 % 5-03 mL every 6 ity of nebulizer 00:00: (six) [place] solution 00 hours as Medical needed for Branch Wheezing, Shortness of Breath, Bronchospa sm or Chest tightness. guaiFENesin 2023-0 Yes [id number] 200mg Take 10 mL [facility] 100 mg/5 mL 5-03 by mouth ity of solution 00:00: every 6 [place] 00 (six) Medical hours as Branch needed for Cough. guaiFENesin 2023-0 Yes [id number] 200mg Take 10 mL [facility] 100 mg/5 mL 5-03 by mouth ity of solution 00:00: every 6 [place] 00 (six) Medical hours as Branch needed for Cough. guaiFENesin 2023-0 Yes [id number] 200mg Take 10 mL [facility] 100 mg/5 mL 5-03 by mouth ity of solution 00:00: every 6 [place] 00 (six) Medical hours as Branch needed for Cough. guaiFENesin 2023-0 Yes [id number] 200mg Take 10 mL [facility] 100 mg/5 mL 5-03 by mouth ity of solution 00:00: every 6 [place] 00 (six) Medical hours as Branch needed for Cough. guaiFENesin 2023-0 Yes [id number] 200mg Take 10 mL [facility] 100 mg/5 mL 5-03 by mouth ity of solution 00:00: every 6 [place] 00 (six) Medical hours as Branch needed for Cough. guaiFENesin 2023-0 Yes [id number] 200mg Take 10 mL [facility] 100 mg/5 mL 5-03 by mouth ity of solution 00:00: every 6 [place] 00 (six) Medical hours as Branch needed for Cough. guaiFENesin 2023-0 Yes [id number] 200mg Take 10 mL [facility] 100 mg/5 mL 5-03 by mouth ity of solution 00:00: every 6 [place] 00 (six) Medical hours as Branch needed for Cough. guaiFENesin 2023-0 Yes [id number] 200mg Take 10 mL [facility] 100 mg/5 mL 5-03 by mouth ity of solution 00:00: every 6 [place] 00 (six) Medical hours as Branch needed for Cough. ipratropium 2023-0 2023- No [id number] .5mg Inhale 2.5 Univers 0.02 % 5-03 06-01 mL every 6 ity of nebulizer 00:00: 00:00 (six) [place] solution 00 :00 hours as Medical needed for Branch Wheezing, Shortness of Breath, Bronchospa sm or Chest tightness. levoFLOXaci 2022- Yes [id number] 500mg Take 1 Univers n 500 mg 5- 05-08 tablet by ity o f tablet 00:00: 04:59 mouth in [place] 00 :00 the [facility] for 4 days. levoFLOXaci 2022- Yes [id number] 500mg Take 1 Univers n 500 mg 5- 05-08 tablet by ity o f tablet 00:00: 04:59 mouth in [place] 00 :00 the [facility] for 4 days. levoFLOXaci 2022- Yes [id number] 500mg Take 1 Univers n 500 mg -11 21-08 tablet by ity o f tablet 00:00: 04:59 mouth in [place] 00 :00 the [facility] for 4 days. levoFLOXaci 2022- Yes [id number] 500mg Take 1 Univers n 500 mg 5-11 21-08 tablet by ity o f tablet 00:00: 04:59 mouth in [place] 00 :00 the [facility] for 4 days. levoFLOXaci 2022- Yes [id number] 500mg Take 1 Univers n 500 mg - 05-08 tablet by ity o f tablet 00:00: 04:59 mouth in [place] 00 :00 the [facility] for 4 days. levoFLOXaci 2022- Yes [id number] 500mg Take 1 Univers n 500 mg - 05-08 tablet by ity o f tablet 00:00: 04:59 mouth in [place] 00 :00 [facility] for 4 days. levalbutero 2022- No 1.25mg 1.25 mg, Univers l (XOPENEX) 01-17 Inhalation i ty of nebulizer 13:00: 11:56 , TID, [place] solution 00 :39 First dose Medic al 1.25 mg on Tue Branch 01/17/23 at 0800, Until Discontinu ed, Routine methylpredn 2022- No 125mg 125 mg, U nivers isolone sod 01-17 Intravenou i ty of succ 12:00: 11:11 s, ONCE, 1 [place] (SOLU-MEDRO 00 :00 dose, On Medi lucho L) Tue01/17/23 Branch injection at 0700, 2 125 mg mL ipratropium 2022-0 No .5mg 0.5 mg, Un igor (ATROVENT) 5- 05-01 Inhalation it y of 0.02 % 11:45: 11:42 , ONCE, 1 [place] nebulizer 00 :00 dose, On Medica l solution Tue01/17/23 Branc h 0.5 mg at 0645, MICHAEL albuterol 2022-0 Yes [id number] 2{puff} Inhale 2 Univers 90 5-01 Puffs ity of mcg/actuati 00:00: every 4 [place] as on inhaler 00 (four) Medical hours as Branch needed for Wheezing or Shortness of Breath. albuterol 2022-0 Yes [id number] 2.5mg Inhale 3 Univers 2.5 mg /3 5-01 mL every 4 ity of mL (0.083 00:00: (four) [place] %) 00 hours. May Medical nebulizer also Branch solution nebulize one extra every 6 hours. predniSONE 2022-0 Yes [id number] 50mg Take 1 Univers 50 mg 5-01 tablet by ity of tablet 00:00: mouth in [place] 00 the Medical morning. Branch benzonatate 2022-0 Yes [id number] 200mg Take 1 [facility] 200 mg 5-01 capsule by ity of capsule 00:00: mouth 3 [place] 00 (three) Medical times Branch daily as needed for Cough. ipratropium 2022-0 Yes [id number] .5mg Inhale 2.5 Univers 0.02 % 5-01 mL every 6 ity of nebulizer 00:00: (six) [place] solution 00 hours as Medical needed for Branch Wheezing, Shortness of Breath, Bronchospa sm or Chest tightness. albuterol 2022-0 Yes [id number] 2{puff} Inhale 2 Univers 90 5-01 Puffs ity of mcg/actuati 00:00: every 4 [place] as on inhaler 00 (four) Medical hours as Branch needed for Wheezing or Shortness of Breath. albuterol 2022-0 Yes [id number] 2.5mg Inhale 3 Univers 2.5 mg /3 5-01 mL every 4 ity of mL (0.083 00:00: (four) [place] %) 00 hours. May Medical nebulizer also Branch solution nebulize one extra every 6 hours. benzonatate 2022-0 Yes [id number] 200mg Take 1 [facility] 200 mg 5-01 capsule by ity of capsule 00:00: mouth 3 [place] 00 (three) Medical times Branch daily as needed for Cough. albuterol 2022-0 Yes [id number] 2{puff} Inhale 2 Univers 90 5-01 Puffs ity of mcg/actuati 00:00: every 4 [place] as on inhaler 00 (four) Medical hours as Branch needed for Wheezing or Shortness of Breath. albuterol 2022-0 Yes [id number] 2.5mg Inhale 3 Univers 2.5 mg /3 5-01 mL every 4 ity of mL (0.083 00:00: (four) [place] %) 00 hours. May Medical nebulizer also Branch solution nebulize one extra every 6 hours. benzonatate 2022-0 Yes [id number] 200mg Take 1 Univers 200 mg 5-01 capsule by ity of capsule 00:00: mouth 3 [place] 00 (three) Medical times Branch daily as needed for Cough. albuterol 2022-0 Yes [id number] 2{puff} Inhale 2 Univers 90 5-01 Puffs ity of mcg/actuati 00:00: every 4 [place] as on inhaler 00 (four) Medical hours as Branch needed for Wheezing or Shortness of Breath. albuterol 2022-0 Yes [id number] 2.5mg Inhale 3 Univers 2.5 mg /3 5-01 mL every 4 ity of mL (0.083 00:00: (four) [place] %) 00 hours. May Medical nebulizer also Branch solution nebulize one extra every 6 hours. benzonatate 3-0 Yes [id number] 200mg Take 1 Univers 200 mg 5-01 capsule by ity of capsule 00:00: mouth 3 [place] 00 (three) Medical times Branch daily as needed for Cough. albuterol 2022-0 Yes [id number] 2{puff} Inhale 2 Univers 90 5-01 Puffs ity of mcg/actuati 00:00: every 4 [place] as on inhaler 00 (four) Medical hours as Branch needed for Wheezing or Shortness of Breath. albuterol 3-0 Yes [id number] 2.5mg Inhale 3 Univers 2.5 mg /3 5-01 mL every 4 ity of mL (0.083 00:00: (four) [place] %) 00 hours. May Medical nebulizer also Branch solution nebulize one extra every 6 hours. benzonatate 3-0 Yes [id number] 200mg Take 1 [facility] 200 mg 5-01 capsule by ity of capsule 00:00: mouth 3 [place] 00 (three) Medical times Branch daily as needed for Cough. albuterol 3-0 Yes [id number] 2{puff} Inhale 2 Univers 90 5-01 Puffs ity of mcg/actuati 00:00: every 4 [place] as on inhaler 00 (four) Medical hours as Branch needed for Wheezing or Shortness of Breath. albuterol 3-0 Yes [id number] 2.5mg Inhale 3 Univers 2.5 mg /3 5-01 mL every 4 ity of mL (0.083 00:00: (four) [place] %) 00 hours. May Medical nebulizer also Branch solution nebulize one extra every 6 hours. benzonatate 3-0 Yes [id number] 200mg Take 1 [facility] 200 mg 5-01 capsule by ity of capsule 00:00: mouth 3 [place] 00 (three) Medical times Branch daily as needed for Cough. albuterol 3-0 Yes [id number] 2{puff} Inhale 2 Univers 90 5-01 Puffs ity of mcg/actuati 00:00: every 4 [place] as on inhaler 00 (four) Medical hours as Branch needed for Wheezing or Shortness of Breath. albuterol 2023-0 Yes [id number] 2.5mg Inhale 3 Univers 2.5 mg /3 5-01 mL every 4 ity of mL (0.083 00:00: (four) [place] %) 00 hours. May Medical nebulizer also Branch solution nebulize one extra every 6 hours. benzonatate 3-0 Yes [id number] 200mg Take 1 [facility] 200 mg 5-01 capsule by ity of capsule 00:00: mouth 3 [place] 00 (three) Medical times Branch daily as needed for Cough. albuterol 3-0 Yes [id number] 2{puff} Inhale 2 Univers 90 5-01 Puffs ity of mcg/actuati 00:00: every 4 [place] as on inhaler 00 (four) Medical hours as Branch needed for Wheezing or Shortness of Breath. albuterol 2022-0 Yes [id number] 2.5mg Inhale 3 Univers 2.5 mg /3 5-01 mL every 4 ity of mL (0.083 00:00: (four) [place] %) 00 hours. May Medical nebulizer also Branch solution nebulize one extra every 6 hours. benzonatate 2022-0 Yes [id number] 200mg Take 1 Univers 200 mg 5-01 capsule by ity of capsule 00:00: mouth 3 [place] 00 (three) Medical times Branch daily as needed for Cough. albuterol 2022-0 Yes [id number] 2{puff} Inhale 2 Univers 90 5-01 Puffs ity of mcg/actuati 00:00: every 4 [place] as on inhaler 00 (four) Medical hours as Branch needed for Wheezing or Shortness of Breath. albuterol 2022-0 Yes [id number] 2.5mg Inhale 3 Univers 2.5 mg /3 5-01 mL every 4 ity of mL (0.083 00:00: (four) [place] %) 00 hours. May Medical nebulizer also Branch solution nebulize one extra every 6 hours. benzonatate 2022-0 Yes [id number] 200mg Take 1 [facility] 200 mg 5-01 capsule by ity of capsule 00:00: mouth 3 [place] 00 (three) Medical times Branch daily as needed for Cough. albuterol 2022-0 Yes [id number] 2{puff} Inhale 2 Univers 90 5-01 Puffs ity of mcg/actuati 00:00: every 4 [place] as on inhaler 00 (four) Medical hours as Branch needed for Wheezing or Shortness of Breath. albuterol 3-0 Yes [id number] 2.5mg Inhale 3 Univers 2.5 mg /3 5-01 mL every 4 ity of mL (0.083 00:00: (four) [place] %) 00 hours. May Medical nebulizer also Branch solution nebulize one extra every 6 hours. benzonatate 2022-0 Yes [id number] 200mg Take 1 Univers 200 mg 5-01 capsule by ity of capsule 00:00: mouth 3 (three) Medical times Branch daily as needed for Cough. albuterol 2022-0 Yes [id number] 2{puff} Inhale 2 Univers 90 5-01 Puffs ity of mcg/actuati 00:00: every 4 [place] as on inhaler 00 (four) Medical hours as Branch needed for Wheezing or Shortness of Breath. albuterol 2022-0 Yes [id number] 2.5mg Inhale 3 Univers 2.5 mg /3 5-01 mL every 4 ity of mL (0.083 00:00: (four) [place] %) 00 hours. May Medical nebulizer also Branch solution nebulize one extra every 6 hours. benzonatate 2022-0 Yes [id number] 200mg Take 1 [facility] 200 mg 5-01 capsule by ity of capsule 00:00: mouth 3 (three) Medical times Branch daily as needed for Cough. albuterol 2022-0 Yes [id number] 2{puff} Inhale 2 Univers 90 5-01 Puffs ity of mcg/actuati 00:00: every 4 [place] as on inhaler 00 (four) Medical hours as Branch needed for Wheezing or Shortness of Breath. albuterol 2022-0 Yes [id number] 2.5mg Inhale 3 Univers 2.5 mg /3 5-01 mL every 4 ity of mL (0.083 00:00: (four) [place] %) 00 hours. May Medical nebulizer also Branch solution nebulize one extra every 6 hours. benzonatate 2022-0 Yes [id number] 200mg Take 1 [facility] 200 mg 5-01 capsule by ity of capsule 00:00: mouth 3 (three) Medical times Branch daily as needed for Cough. albuterol 2022-0 Yes [id number] 2{puff} Inhale 2 Univers 90 5-01 Puffs ity of mcg/actuati 00:00: every 4 [place] as on inhaler 00 (four) Medical hours as Branch needed for Wheezing or Shortness of Breath. albuterol 3-0 Yes [id number] 2.5mg Inhale 3 Univers 2.5 mg /3 5-01 mL every 4 ity of mL (0.083 00:00: (four) [place] %) 00 hours. May Medical nebulizer also Branch solution nebulize one extra every 6 hours. benzonatate 2022-0 Yes [id number] 200mg Take 1 [facility] 200 mg 5-01 capsule by ity of capsule 00:00: mouth 3 (three) Medical times Branch daily as needed for Cough. albuterol 2022-0 Yes [id number] 2{puff} Inhale 2 Univers 90 5-01 Puffs ity of mcg/actuati 00:00: every 4 [place] as on inhaler 00 (four) Medical hours as Branch needed for Wheezing or Shortness of Breath. albuterol 2022-0 Yes [id number] 2.5mg Inhale 3 Univers 2.5 mg /3 5-01 mL every 4 ity of mL (0.083 00:00: (four) [place] %) 00 hours. May Medical nebulizer also Branch solution nebulize one extra every 6 hours. benzonatate 2022-0 Yes [id number] 200mg Take 1 [facility] 200 mg 5-01 capsule by ity of capsule 00:00: mouth 3 (three) Medical times Branch daily as needed for Cough. albuterol 2022-0 Yes [id number] 2{puff} Inhale 2 [facility] 90 5-01 Puffs ity of mcg/actuati 00:00: every 4 [place] as on inhaler 00 (four) Medical hours as Branch needed for Wheezing or Shortness of Breath. albuterol 2022-0 Yes [id number] 2.5mg Inhale 3 Univers 2.5 mg /3 5-01 mL every 4 ity of mL (0.083 00:00: (four) [place] %) 00 hours. May Medical nebulizer also Branch solution nebulize one extra every 6 hours. benzonatate 2022-0 Yes [id number] 200mg Take 1 Univers 200 mg 5-01 capsule by ity of capsule 00:00: mouth 3 (three) Medical times Branch daily as needed for Cough. albuterol 2022-0 Yes [id number] 2{puff} Inhale 2 Univers 90 5-01 Puffs ity of mcg/actuati 00:00: every 4 [place] as on inhaler 00 (four) Medical hours as Branch needed for Wheezing or Shortness of Breath. albuterol 2022-0 Yes [id number] 2.5mg Inhale 3 Univers 2.5 mg /3 5-01 mL every 4 ity of mL (0.083 00:00: (four) [place] %) 00 hours. May Medical nebulizer also Branch solution nebulize one extra every 6 hours. benzonatate 2023-0 Yes [id number] 200mg Take 1 [facility] 200 mg 5-01 capsule by ity of capsule 00:00: mouth 3 (three) Medical times Branch daily as needed for Cough. albuterol 2022-0 Yes [id number] 2{puff} Inhale 2 Univers 90 5-01 Puffs ity of mcg/actuati 00:00: every 4 [place] as on inhaler 00 (four) Medical hours as Branch needed for Wheezing or Shortness of Breath. albuterol 3-0 Yes [id number] 2.5mg Inhale 3 Univers 2.5 mg /3 5-01 mL every 4 ity of mL (0.083 00:00: (four) [place] %) 00 hours. May Medical nebulizer also Branch solution nebulize one extra every 6 hours. benzonatate 3-0 Yes [id number] 200mg Take 1 [facility] 200 mg 5-01 capsule by ity of capsule 00:00: mouth 3 (three) Medical times Branch daily as needed for Cough. albuterol 2023-0 Yes [id number] 2.5mg Inhale 3 Univers 2.5 mg /3 5-01 mL every 4 ity of mL (0.083 00:00: (four) [place] %) 00 hours. May Medical nebulizer also Branch solution nebulize one extra every 6 hours. benzonatate 3-0 Yes [id number] 200mg Take 1 [facility] 200 mg 5-01 capsule by ity of capsule 00:00: mouth 3 (three) Medical times Branch daily as needed for Cough. albuterol 2023-0 Yes [id number] 2.5mg Inhale 3 Univers 2.5 mg /3 5-01 mL every 4 ity of mL (0.083 00:00: (four) [place] %) 00 hours. May Medical nebulizer also Branch solution nebulize one extra every 6 hours. benzonatate 2023-0 Yes [id number] 200mg Take 1 [facility] 200 mg 5-01 capsule by ity of capsule 00:00: mouth 3 (three) Medical times Branch daily as needed for Cough. albuterol 3-0 Yes [id number] 2.5mg Inhale 3 Univers 2.5 mg /3 5-01 mL every 4 ity of mL (0.083 00:00: (four) [place] %) 00 hours. May Medical nebulizer also Branch solution nebulize one extra every 6 hours. benzonatate 3-0 Yes [id number] 200mg Take 1 [facility] 200 mg 5-01 capsule by ity of capsule 00:00: mouth 3 (three) Medical times Branch daily as needed for Cough. albuterol 2022-0 Yes [id number] 2.5mg Inhale 3 Univers 2.5 mg /3 5-01 mL every 4 ity of mL (0.083 00:00: (four) [place] %) 00 hours. May Medical nebulizer also Branch solution nebulize one extra every 6 hours. albuterol 2022-0 Yes [id number] 2.5mg Inhale 3 Univers 2.5 mg /3 5-01 mL every 4 ity of mL (0.083 00:00: (four) [place] %) 00 hours. May Medical nebulizer also Branch solution nebulize one extra every 6 hours. albuterol 3-0 Yes [id number] 2.5mg Inhale 3 Univers 2.5 mg /3 5-01 mL every 4 ity of mL (0.083 00:00: (four) [place] %) 00 hours. May Medical nebulizer also Branch solution nebulize one extra every 6 hours. albuterol 3-0 Yes [id number] 2.5mg Inhale 3 Univers 2.5 mg /3 5-01 mL every 4 ity of mL (0.083 00:00: (four) [place] %) 00 hours. May Medical nebulizer also Branch solution nebulize one extra every 6 hours. albuterol 3-0 Yes [id number] 2.5mg Inhale 3 Univers 2.5 mg /3 5-01 mL every 4 ity of mL (0.083 00:00: (four) [place] %) 00 hours. May Medical nebulizer also Branch solution nebulize one extra every 6 hours. albuterol 3-0 Yes [id number] 2.5mg Inhale 3 [facility] 2.5 mg /3 5-01 mL every 4 ity of mL (0.083 00:00: (four) [place] %) 00 hours. May Medical nebulizer also Branch solution nebulize one extra every 6 hours. albuterol 2022- No [id number] 2.5mg Inhale 3 [facility] 2.5 mg /3 5-01 06-15 mL every 4 ity of mL (0.083 00:00: 00:00 (four) [place] %) 00 :00 hours. May Medical nebulizer also Branch solution nebulize one extra every 6 hours. benzonatate 2022- No [id number] 200mg Take 1 [facility] 200 mg 01-17- capsule by ity of capsule 00:00: 00:00 mouth 3 [place] 00 :00 (three) Medical times Branch daily as needed for Cough. albuterol 2022- No [id number] 2{puff} Inhale 2 [facility] 90 - 05-19 Puffs ity of mcg/actuati 00:00: 00:00 every 4 [place] on inhaler 00 :00 (four) Medical hours as Branch needed for Wheezing or Shortness of Breath. predniSONE 2022-2022- No [id number] 50mg Take 1 [facility] 50 mg 01-17 05-03 tablet by ity of tablet 00:00: 00:00 mouth in [place] 00 :00 the Medical morning. Branch ipratropium 2022- No [id number] .5mg Inhale 2.5 [facility] 0.02 % 01-17 05-03 mL every 6 ity of nebulizer 00:00: 00:00 (six) [place] solution 00 :00 hours as Medical needed for Branch Wheezing, Shortness of Breath, Bronchospa sm or Chest tightness. potassium 2023-0 Yes 1{tbl} Take 1 Univ ers chloride 4-21 tablet by ity of (KCL-20 14:37: mouth in [place] ORAL) 58 the Medical morning Branch and 1 tablet in the evening. potassium 2023-0 Yes 1{tbl} Take 1 Univ ers chloride 4-21 tablet by ity of (KCL-20 14:37: mouth in [place] ORAL) 58 the Medical morning Branch and 1 tablet in the evening. potassium 2023-0 Yes 1{tbl} Take 1 Univ ers chloride 4-21 tablet by ity of (KCL-20 14:37: mouth in [place] ORAL) 58 the Medical morning Branch and 1 tablet in the evening. potassium 2023-0 Yes 1{tbl} Take 1 Univ ers chloride 4-21 tablet by ity of (KCL-20 14:37: mouth in [place] ORAL) 58 the Medical morning Branch and 1 tablet in the evening. busPIRone 2023-0 Yes 10mg Take 1 Univer s 10 mg 4-21 tablet by ity of tablet 14:36: mouth in [place] 57 the Medical morning Branch and 1 tablet in the evening. rivaroxaban 2023-0 Yes 15mg Take 1 Univ ers 15 mg 4-21 tablet by ity of tablet 14:36: mouth in [place] [address] the Medical morning. Branch ASPIRIN 2023-0 Yes 81mg Take 81 mg Univ ers ORAL 4-21 by mouth ity of 14:36: in the [place] [address] morning. Medical tablet Branch benazepriL 2023-0 Yes 10mg Take 1 Unive rs 10 mg 4-21 tablet by ity of tablet 14:36: mouth in [place] [address] the Medical morning. Branch busPIRone 2023-0 Yes 10mg Take 1 Univer s 10 mg 4-21 tablet by ity of tablet 14:36: mouth in [place] [address] the Medical morning Branch and 1 tablet in the evening. rivaroxaban 2023-0 Yes 15mg Take 1 Univ ers 15 mg 4-21 tablet by ity of tablet 14:36: mouth in [place] [address] the Medical morning. Branch ASPIRIN 2023-0 Yes 81mg Take 81 mg Univ ers ORAL 4-21 by mouth ity of 14:36: in the [place] [address] morning. Medical tablet Branch benazepriL 2023-0 Yes 10mg Take 1 Un[facility] rs 10 mg 4-21 tablet by ity of tablet 14:36: mouth in [place] [address] the Medical morning. Branch busPIRone 2023-0 Yes 10mg Take 1 Univer s 10 mg 4-21 tablet by ity of tablet 14:36: mouth in [place] [address] the Medical morning Branch and 1 tablet in the evening. rivaroxaban 2023-0 Yes 15mg Take 1 Univ ers 15 mg 4-21 tablet by ity of tablet 14:36: mouth in [place] [address] the Medical morning. Branch ASPIRIN 2023-0 Yes 81mg Take 81 mg Univ ers ORAL 4-21 by mouth ity of 14:36: in the [place] [address] morning. Medical tablet Branch benazepriL 2023-0 Yes 10mg Take 1 Un[facility] rs 10 mg 4-21 tablet by ity of tablet 14:36: mouth in [place] [address] the Medical morning. Branch busPIRone 2023-0 Yes 10mg Take 1 Univer s 10 mg 4-21 tablet by ity of tablet 14:36: mouth in [place] [address] the Medical morning Branch and 1 tablet in the evening. rivaroxaban 2023-0 Yes 15mg Take 1 Univ ers 15 mg 4-21 tablet by ity of tablet 14:36: mouth in [place] [address] the Medical morning. Branch ASPIRIN 2023-0 Yes 81mg Take 81 mg Univ ers ORAL 4-21 by mouth ity of 14:36: in the [place] [address] morning. Medical tablet Branch benazepriL 2023-0 Yes 10mg Take 1 Un[facility] rs 10 mg 4-21 tablet by ity of tablet 14:36: mouth in [place] [address] the Medical morning. Branch donepeziL 5 2023-0 Yes 5mg Take 1 Univ ers mg tablet 4-21 tablet by ity o f 00:00: mouth in [place] 00 the Medical morning. Branch memantine 5 2023-0 Yes 5mg Take 1 Univ ers mg tablet 4-21 tablet by ity o f 00:00: mouth in [place] 00 the Medical morning. Branch donepeziL 5 2023-0 Yes 5mg Take 1 Univ ers mg tablet 4-21 tablet by ity o f 00:00: mouth in [place] 00 the Medical morning. Branch memantine 5 2023-0 Yes 5mg Take 1 Univ ers mg tablet 4-21 tablet by ity o f 00:00: mouth in [place] 00 the Medical morning. Branch donepeziL 5 2023-0 Yes 5mg Take 1 Univ ers mg tablet 4-21 tablet by ity o f 00:00: mouth in [place] 00 the Medical morning. Branch memantine 5 2023-0 Yes 5mg Take 1 Univ ers mg tablet 4-21 tablet by ity o f 00:00: mouth in [place] 00 the Medical morning. Branch donepeziL 5 2023-0 Yes 5mg Take 1 Univ ers mg tablet 4-21 tablet by ity o f 00:00: mouth in [place] 00 the Medical morning. Branch memantine 5 2023-0 Yes 5mg Take 1 Univ ers mg tablet 4-21 tablet by ity o f 00:00: mouth in [place] 00 the Medical morning. Branch donepeziL 5 2023-0 Yes 5mg Take 1 Univ ers mg tablet 4-21 tablet by ity o f 00:00: mouth in [place] 00 the Medical morning. Branch memantine 5 2023-0 Yes 5mg Take 1 Univ ers mg tablet 4-21 tablet by ity o f 00:00: mouth in [place] 00 the Medical morning. Branch donepeziL 5 2023-0 Yes 5mg Take 1 Univ ers mg tablet 4-21 tablet by ity o f 00:00: mouth in [place] the Medical morning. Branch memantine 5 2023-0 Yes 5mg Take 1 Univ ers mg tablet 4-21 tablet by ity o f 00:00: mouth in [place] the Medical morning. Branch donepeziL 5 2023-0 Yes 5mg Take 1 Univ ers mg tablet 4-21 tablet by ity o f 00:00: mouth in [place] the Medical morning. Branch memantine 5 3-0 Yes 5mg Take 1 Univ ers mg tablet 4-21 tablet by ity o f 00:00: mouth in [place] the Medical morning. Branch donepeziL 5 2023-0 Yes 5mg Take 1 Univ ers mg tablet 4-21 tablet by ity o f 00:00: mouth in [place] the Medical morning. Branch memantine 5 2023-0 Yes 5mg Take 1 Univ ers mg tablet 4-21 tablet by ity o f 00:00: mouth in [place] the Medical morning. Branch donepeziL 5 2023-0 Yes 5mg Take 1 Univ ers mg tablet 4-21 tablet by ity o f 00:00: mouth in [place] 00 the Medical morning. Branch memantine 5 2023-0 Yes 5mg Take 1 Univ ers mg tablet 4-21 tablet by ity o f 00:00: mouth in [place] 00 the Medical morning. Branch donepeziL 5 2023-0 Yes 5mg Take 1 Univ ers mg tablet 4-21 tablet by ity o f 00:00: mouth in [place] 00 the Medical morning. Branch memantine 5 2023-0 Yes 5mg Take 1 Univ ers mg tablet 4-21 tablet by ity o f 00:00: mouth in [place] 00 the Medical morning. Branch donepeziL 5 2023-0 Yes 5mg Take 1 Univ ers mg tablet 4-21 tablet by ity o f 00:00: mouth in [place] 00 the Medical morning. Branch memantine 5 2023-0 Yes 5mg Take 1 Univ ers mg tablet 4-21 tablet by ity o f 00:00: mouth in [place] 00 the Medical morning. Branch donepeziL 5 2023-0 Yes 5mg Take 1 Univ ers mg tablet 4-21 tablet by ity o f 00:00: mouth in [place] 00 the Medical morning. Branch memantine 5 2023-0 Yes 5mg Take 1 Univ ers mg tablet 4-21 tablet by ity o f 00:00: mouth in [place] 00 the Medical morning. Branch donepeziL 5 2023-0 Yes 5mg Take 1 Univ ers mg tablet 4-21 tablet by ity o f 00:00: mouth in [place] 00 the Medical morning. Branch memantine 5 2023-0 Yes 5mg Take 1 Univ ers mg tablet 4-21 tablet by ity o f 00:00: mouth in [place] 00 the Medical morning. Branch donepeziL 5 2023-0 Yes 5mg Take 1 Univ ers mg tablet 4-21 tablet by ity o f 00:00: mouth in [place] the Medical morning. Branch memantine 5 2023-0 Yes 5mg Take 1 Univ ers mg tablet 4-21 tablet by ity o f 00:00: mouth in [place] 00 the Medical morning. Branch donepeziL 5 2023-0 Yes 5mg Take 1 Univ ers mg tablet 4-21 tablet by ity o f 00:00: mouth in [place] 00 the Medical morning. Branch memantine 5 2023-0 Yes 5mg Take 1 Univ ers mg tablet 4-21 tablet by ity o f 00:00: mouth in [place] 00 the Medical morning. Branch donepeziL 5 2023-0 Yes 5mg Take 1 Univ ers mg tablet 4-21 tablet by ity o f 00:00: mouth in [place] 00 the Medical morning. Branch memantine 5 2023-0 Yes 5mg Take 1 Univ ers mg tablet 4-21 tablet by ity o f 00:00: mouth in [place] 00 the Medical morning. Branch donepeziL 5 2023-0 Yes 5mg Take 1 Univ ers mg tablet 4-21 tablet by ity o f 00:00: mouth in [place] 00 the Medical morning. Branch memantine 5 2023-0 Yes 5mg Take 1 Univ ers mg tablet 4-21 tablet by ity o f 00:00: mouth in [place] the Medical morning. Branch donepeziL 5 2023-0 Yes 5mg Take 1 Univ ers mg tablet 4-21 tablet by ity o f 00:00: mouth in [place] the Medical morning. Branch memantine 5 2023-0 Yes 5mg Take 1 Univ ers mg tablet 4-21 tablet by ity o f 00:00: mouth in [place] 00 the Medical morning. Branch donepeziL 5 2023-0 Yes 5mg Take 1 Univ ers mg tablet 4-21 tablet by ity o f 00:00: mouth in [place] the Medical morning. Branch memantine 5 2023-0 Yes 5mg Take 1 Univ ers mg tablet 4-21 tablet by ity o f 00:00: mouth in [place] the Medical morning. Branch donepeziL 5 2023-0 Yes 5mg Take 1 Univ ers mg tablet 4-21 tablet by ity o f 00:00: mouth in [place] the Medical morning. Branch memantine 5 2023-0 Yes 5mg Take 1 Univ ers mg tablet 4-21 tablet by ity o f 00:00: mouth in [place] the Medical morning. Branch donepeziL 5 2023-0 Yes 5mg Take 1 Univ ers mg tablet 4-21 tablet by ity o f 00:00: mouth in [place] the Medical morning. Branch memantine 5 2023-0 Yes 5mg Take 1 Univ ers mg tablet 4-21 tablet by ity o f 00:00: mouth in [place] the Medical morning. Branch donepeziL 5 2023-0 Yes 5mg Take 1 Univ ers mg tablet 4-21 tablet by ity o f 00:00: mouth in [place] the Medical morning. Branch memantine 5 2023-0 Yes 5mg Take 1 Univ ers mg tablet 4-21 tablet by ity o f 00:00: mouth in [place] the Medical morning. Branch donepeziL 5 2023-0 Yes 5mg Take 1 Univ ers mg tablet 4-21 tablet by ity o f 00:00: mouth in [place] 00 the Medical morning. Branch memantine 5 2023-0 Yes 5mg Take 1 Univ ers mg tablet 4-21 tablet by ity o f 00:00: mouth in [place] 00 the Medical morning. Branch donepeziL 5 2023-0 Yes 5mg Take 1 Univ ers mg tablet 4-21 tablet by ity o f 00:00: mouth in [place] 00 the Medical morning. Branch memantine 5 2023-0 Yes 5mg Take 1 Univ ers mg tablet 4-21 tablet by ity o f 00:00: mouth in [place] 00 the Medical morning. Branch donepeziL 5 2023-0 Yes 5mg Take 1 Univ ers mg tablet 4-21 tablet by ity o f 00:00: mouth in [place] 00 the Medical morning. Branch memantine 5 2023-0 Yes 5mg Take 1 Univ ers mg tablet 4-21 tablet by ity o f 00:00: mouth in [place] 00 the Medical morning. Branch donepeziL 5 2023-0 Yes 5mg Take 1 Univ ers mg tablet 4-21 tablet by ity o f 00:00: mouth in [place] 00 the Medical morning. Branch memantine 5 2023-0 Yes 5mg Take 1 Univ ers mg tablet 4-21 tablet by ity o f 00:00: mouth in [place] 00 the Medical morning. Branch donepeziL 5 2023-0 Yes 5mg Take 1 Univ ers mg tablet 4-21 tablet by ity o f 00:00: mouth in [place] 00 the Medical morning. Branch memantine 5 2023-0 Yes 5mg Take 1 Univ ers mg tablet 4-21 tablet by ity o f 00:00: mouth in [place] 00 the Medical morning. Branch donepeziL 5 2023-0 2023- No 5mg Take 1 Uni vers mg tablet 01-07- tablet by ity of 00:00: 00:00 mouth in [place] 00 :00 the Medical morning. Branch memantine 5 2023-0 2023- No 5mg Take 1 Uni vers mg tablet 01-07- tablet by ity of 00:00: 00:00 mouth in [place] 00 :00 the Medical morning. Branch donepeziL 5 2023-0 2023- No 5mg Take 1 Uni vers mg tablet -09 03- tablet by ity of 00:00: 00:00 mouth in [place] 00 :00 the Medical morning. Branch memantine 5 2023-0 2023- No 5mg Take 1 Uni vers mg tablet 4-21 06-13 tablet by ity of 00:00: 00:00 mouth in [place] 00 :00 the Medical morning. Branch tamsulosin 2022-0 2022- Yes [id number] .4mg Take 1 [facility] 0.4 mg 24 3-27 -27 capsule by ity of hr capsule 00:00: 04:59 mouth in [place] 00 :00 the Medical morning Branch for 30 days. tamsulosin 2022-0 2022- Yes [id number] .4mg Take 1 [facility] 0.4 mg 24 3-27 - capsule by ity of hr capsule 00:00: 04:59 mouth in [place] 00 :00 the Medical morning Branch for 30 days. tamsulosin 2022-0 2022- Yes [id number] .4mg Take 1 [facility] 0.4 mg 24 3-13 01- capsule by ity of hr capsule 00:00: 04:59 mouth in [place] 00 :00 the Medical morning Branch for 30 days. tamsulosin 2022-0 2022- Yes [id number] .4mg Take 1 [facility] 0.4 mg 24 3-13 01- capsule by ity of hr capsule 00:00: 04:59 mouth in [place] 00 :00 the Medical morning Branch for 30 days. tamsulosin 2022-0 2022- Yes [id number] .4mg Take 1 [facility] 0.4 mg 24 3-13 01- capsule by ity of hr capsule 00:00: 04:59 mouth in [place] 00 :00 the Medical morning Branch for 30 days. tamsulosin 2022-0 2022- Yes [id number] .4mg Take 1 [facility] 0.4 mg 24 3-13 01- capsule by ity of hr capsule 00:00: 04:59 mouth in [place] 00 :00 the Medical morning Branch for 30 days. donepeziL 2022-0 Yes 5mg 5 mg, Univers (ARICEPT) 3-26 Oral, ity of tablet 5 mg 17:30: DAILY, [place] 00 First dose Medical on [facility] 12/12/22 at 1230, Until Discontinu ed, Routine memantine 2022-0 Yes 5mg 5 mg, Univers (NAMENDA) 3-26 Oral, ity of tablet 5 mg 17:30: DAILY, [place] 00 First dose Medical on [facility] 12/12/22 at 1230, Until Discontinu ed, Routine
outreach team member approving Restricted medication : TRAVIS ZENG busPIRone 2023-0 Yes 10mg Take 1 Univer s 10 mg 3-26 tablet by ity of tablet 14:37: mouth in [place] 13 the Medical morning Branch and 1 tablet in the evening. rivaroxaban 2023-0 Yes 15mg Take 1 Univ ers (XARELTO) 3-26 tablet by ity o f 15 mg 14:37: mouth in [place] tablet 13 the Medical morning. Branch aspirin 81 3-0 Yes 81mg Take 81 mg U nivers mg chewable 3-26 by mouth ity of tablet 14:37: in the [place] [address] morning. Medical tablet Branch busPIRone 2023-0 Yes 10mg Take 1 Univer s 10 mg 3-26 tablet by ity of tablet 14:37: mouth in [place] [address] the Medical morning Branch and 1 tablet in the evening. rivaroxaban 2023-0 Yes 15mg Take 1 Univ ers (XARELTO) 3-26 tablet by ity o f 15 mg 14:37: mouth in [place] tablet 13 the Medical morning. Branch busPIRone 2023-0 Yes 10mg Take 1 Univer s 10 mg 3-26 tablet by ity of tablet 14:37: mouth in [place] [address] the Medical morning Branch and 1 tablet in the evening. rivaroxaban 2023-0 Yes 15mg Take 1 Univ ers (XARELTO) 3-26 tablet by ity o f 15 mg 14:37: mouth in [place] tablet 13 the Medical morning. Branch aspirin 81 3-0 Yes 81mg Take 81 mg U nivers mg chewable 3-26 by mouth ity of tablet 14:37: in the [place] [address] morning. Medical tablet Branch busPIRone 2023-0 Yes 10mg Take 1 Univer s 10 mg 3-26 tablet by ity of tablet 14:37: mouth in [place] [address] the Medical morning Branch and 1 tablet in the evening. rivaroxaban 2023-0 Yes 15mg Take 1 Univ ers (XARELTO) 3-26 tablet by ity o f 15 mg 14:37: mouth in [place] tablet 13 the Medical morning. Branch aspirin 81 3-0 Yes 81mg Take 81 mg U nivers mg chewable 3-26 by mouth ity of tablet 14:37: in the [place] 13 morning. Medical tablet Branch tamsulosin Yes .4mg 0.4 mg, Univ ers (FLOMAX) 12-12 Oral, ity of capsule 0.4 14:00: DAILY, [facility] s mg 00 First dose Medical on Sun Branch 12/12/22 at 0900, Until Discontinu ed, Routine aspirin EC Yes 81mg 81 mg, Unive rs tablet 81 12-12 Oral, ity of mg 14:00: DAILY, [place] 00 First dose Medical on [place] Branch 12/12/22 at 0900, Until Discontinu ed, Routine methylpredn Yes 40mg 40 mg, Univ ers isolone sod 12-12 Intravenou it y of succ 14:00: s, DAILY, [place] (SOLU-MEDRO 00 First dose Me dical L) (after Branch injection last 40 mg modificati on) on [place] 12/12/22 at 0900, Until Discontinu ed, Routine carvediloL 2022- No 25mg Take 1 Univ ers 25 mg 12-12 tablet by ity of tablet 11:47: 00:00 mouth in [place] 13 :00 the Medical morning Branch and 1 tablet in the evening. Take with meals. busPIRone 2022-0 2022- No 30mg Take 1 Unive rs 30 mg 12-12 tablet by ity of tablet 11:47: 00:00 mouth in [place] 13 :00 the Medical morning Branch and 1 tablet in the evening. KCL 20 mEq 2022-2022- No Take by Uni vers tablet 12-12 mouth 2 ity of 11:47: 00:00 (two) [place] 13 :00 times Medical daily. Branch benazepriL 2022- No 10mg Take 1 Univ ers 10 mg 12-12 tablet by ity of tablet 11:47: 00:00 mouth in [place] 13 :00 the Medical morning. Branch hydroCHLORO 2022-0 2022- No 25mg Take 1 Uni vers thiazide 25 12-12 tablet by it y of mg tablet 11:47: 00:00 mouth in [facility] as 13 :00 the Medical morning. Branch melatonin 0 Yes 6mg 6 mg, Univers (MELATIN) 12-12 Oral, QHS, ity of tablet 6 mg 02:00: First dose [place] 00 on [facility] Medical 12/11/22 at Branch 2100, Until Discontinu ed, Routine atorvastati Yes 40mg 40 mg, Univ ers n (LIPITOR) 3-26 Oral, QHS, it y of tablet 40 02:00: First dose [place] mg 00 on [facility] Medical 12/11/22 at Branch 2100, Until Discontinu ed, Routine carvediloL 2022- Yes [id number] 3.125mg Take 1 Univers 3.125 mg -12 01- tablet by ity o f tablet 00:00: 04:59 mouth in [place] 00 :00 the [facility] morning [place] and 1 tablet in the evening. Take with meals. Do all this for 30 days. atorvastati 2022- Yes [id number] 40mg Take 1 Univers n 40 mg -12 01- tablet by ity of tablet 00:00: 04:59 mouth at [place] 00 :00 bedtime Medical for 30 Branch days. donepeziL 5 2022- Yes [id number] 5mg Take 1 Univers mg tablet 12-12- tablet by ity of 00:00: 04:59 mouth in [place] 00 :00 the [facility] for 30 days. memantine 5 2022- Yes [id number] 5mg Take 1 Univers mg tablet -12 01- tablet by ity of 00:00: 04:59 mouth in [place] 00 :00 [facility] for 30 days. carvediloL 2022- Yes [id number] 3.125mg Take 1 Univers 3.125 mg -12 01- tablet by ity o f tablet 00:00: 04:59 mouth in [place] 00 :00 the [facility] and 1 tablet in the evening. Take with meals. Do all this for 30 days. atorvastati 2022- Yes [id number] 40mg Take 1 Univers n 40 mg -12 01- tablet by ity of tablet 00:00: 04:59 mouth at [place] 00 :00 bedtime Medical for 30 Branch days. donepeziL 5 2022- Yes [id number] 5mg Take 1 Univers mg tablet 12-12- tablet by ity of 00:00: 04:59 mouth in [place] 00 :00 the [facility] for 30 days. memantine 5 2022- Yes [id number] 5mg Take 1 Univers mg tablet 3-12 01- tablet by ity of 00:00: 04:59 mouth in [place] 00 :00 the [facility] for 30 days. carvediloL 2022- Yes [id number] 3.125mg Take 1 Univers 3.125 mg 3-12 01- tablet by ity o f tablet 00:00: 04:59 mouth in [place] 00 :00 the [facility] and 1 tablet in the evening. Take with meals. Do all this for 30 days. atorvastati 2022- Yes [id number] 40mg Take 1 Univers n 40 mg 3-12 01- tablet by ity of tablet 00:00: 04:59 [facility] [place] [facility] done[facility]ziL 5 2022- Yes [id number] 5mg Take 1 Univers mg tablet -12 01- tablet by ity of 00:00: 04:59 mouth in [place] 00 :00 [facility] for 30 days. memantine 5 2022- Yes [id number] 5mg Take 1 Univers mg tablet -12 01- tablet by ity of 00:: 04:59 mouth in [place] 00 :00 [facility] for 30 days. carvediloL 2022- Yes [id number] 3.125mg Take 1 Univers 3.125 mg 3-12 01- tablet by ity o f tablet 00:: 04:59 mouth in [place] 00 :00 the [facility] and 1 tablet in the evening. Take with meals. Do all this for 30 days. atorvastati 2022- Yes [id number] 40mg Take 1 Univers n 40 mg 3-12 01- tablet by ity of tablet 00:: 04:59 mouth at [place] 00 :00 bedtime [facility] for 30 Branch days. carvediloL 2022- Yes [id number] 3.125mg Take 1 Univers 3.125 mg 3-12 01-26 tablet by ity o f tablet 00:00: 04:59 mouth in [place] 00 :00 the [facility] and 1 tablet in the evening. Take with meals. Do all this for 30 days. atorvastati 2022- Yes [id number] 40mg Take 1 Univers n 40 mg 12-12- tablet by ity of tablet 00:00: 04:59 mouth at [place] 00 :00 [facility] for 30 Branch days. carvediloL 2022- Yes [id number] 3.125mg Take 1 Univers 3.125 mg 12-12- tablet by ity o f tablet 00:00: 04:59 mouth in [place] 00 :00 the [facility] and 1 tablet in the evening. Take with meals. Do all this for 30 days. atorvastati 2022- Yes [id number] 40mg Take 1 Univers n 40 mg 12-12- tablet by ity of tablet 00:00: 04:59 mouth at [place] 00 :00 [facility] for 30 Branch days. donepeziL 5 2022- No [id number] 5mg Take 1 Univers mg tablet 12-12- tablet by ity of 00:00: 00:00 mouth in [place] 00 :00 [facility] for 30 days. memantine 5 2022- No [id number] 5mg Take 1 Univers mg tablet 12-12- tablet by ity of 00:00: 00:00 mouth in [place] 00 :00 [facility] for 30 days. donepeziL 5 2022- No [id number] 5mg Take 1 Univers mg tablet 12-12- tablet by ity of 00:00: 00:00 mouth in [place] 00 :00 [facility] for 30 days. memantine 5 2022- No [id number] 5mg Take 1 Univers mg tablet 12-12- tablet by ity of 00:00: 00:00 mouth in [place] 00 :00 [facility] for 30 days. levalbutero Yes 1.25mg 1.25 mg, Univers l (XOPENEX) 3-25 Inhalation it y of nebulizer 17:00: , QID, [place] solution 00 First dose Medic al 1.25 mg (after Branch last modificati on) on 12/11/22 at 1200, Until Discontinu ed, Routine rivaroxaban Yes 15mg 15 mg, Univ ers (XARELTO) 325 Oral, ity of tablet 15 14:00: DAILY, [place] mg 00 First dose Medical on [facility] Branch 12/11/22 at 0900, Until Discontinu ed, Routine nicotine 0 Yes 1{patch 1 Patch, Un igor (NICODERM) 12-11 } Topical, ity o f 21 mg/24 hr 13:45: Administer [place] patch 1 00 over 24 Medical Patch Hours, Branch Q24H, First dose on [facility] 12/11/22 at 0845, Until Discontinu ed, Routine ipratropium 0 Yes .5mg 0.5 mg, Uni vers (ATROVENT) 25 Inhalation ity of 0.02 % 13:00: , QID, [place] nebulizer 00 First dose Medi lucho solution on [facility] Branch 0.5 mg 12/11/22 at 0800, Until Discontinu ed carvediloL 2022-0 Yes 3.125mg 3.125 mg, Univers (COREG) 25 Oral, BID ity of tablet 13:00: MEALS, [place] 3.125 mg 00 First dose Medic al on [facility] Branch 12/11/22 at 0800, Until Discontinu ed, Routine busPIRone 0 Yes 10mg 10 mg, Univer s (BUSPAR) 3-25 Oral, BID, ity o f tablet 10 13:00: First dose [place] mg 00 on [facility] Medical 12/11/22 at Branch 0800, Until Discontinu ed, Routine methylpredn 0 2022- No 125mg 125 mg, U nivers isolone sod 12-11-25 Intravenou i ty of succ 05:00: 12:35 s, Q6H, [place] (SOLU-MEDRO 00 :32 First dose Me dical L) on [facility] Branch injection 12/11/22 at 125 mg 0000, Until Discontinu ed, Routine NaCl 0.9% 2022- No 1000mL at 100 Uni vers (NS) IV 12-11-25 mL/hr, IV ity of infusion 03:30: 14:48 Infusion, [place] 1,000 mL 00 :38 CONTINUOUS Medic al , Starting Branch on Tue12/10/22 at 2230, Until 12/11/22 at 0948, Routine albuterol 2022-0 Yes 2{puff} 2 Puff, [facility] (VENTOLIN) 25 Inhalation ity of inhaler 2 03:17: , Q4HPRN, [place] Puff 09 Starting Medical on Fri Branch 12/10/22 at 2217, Until Discontinu ed, Routine, Wheezing, Shortness of Breath ondansetron 0 Yes 4mg 4 mg, Slow Univers (ZOFRAN 3-25 IV Push, ity of (PF)) 03:05: Q6HPRN, [place] injection 4 14 Starting Medi lucho mg on Fri Branch 12/10/22 at 2205, Until Discontinu ed, Routine, Nausea and Vomiting (N/V) HYDROcodone 0 Yes 1{tbl} 1 tablet, Univers -acetaminop 3-25 Oral, ity of hen (NORCO) 03:05: Q6HPRN, [place] 10-325 mg 00 Starting Medica l tablet 1 on Tue Branch tablet 12/10/22 at 2205, Until Discontinu ed, Routine, Pain (scale 7-10) HYDROcodone 0 2022- No 1{tbl} 1 tablet, Univers -acetaminop 3- 03-27 Oral, ity of hen (NORCO 03:04: 03:03 Q6HPRN, [place] 5) 5-325 mg 56 :56 Starting Medi lucho tablet 1 on Tue Branch tablet 12/10/22 at 2204, Until 12/12/22 at 2203, Routine, Pain (scale 4-6) acetaminoph 0 Yes 650mg 650 mg, [facility] en 25 Oral, ity of (TYLENOL) 03:04: Q6HPRN, [place] tablet 650 50 Starting Medic al mg on Fri Branch 12/10/22 at 2204, Until Discontinu ed, Routine, Pain (scale 1-3) levalbutero 0 2022- No 1.25mg 1.25 mg, Univers l (XOPENEX) 12-1125 Inhalation i ty of nebulizer 01:00: 15:57 , TID, [place] solution 00 :00 First dose Medic al 1.25 mg on Fri Branch 12/10/22 at 2000, Until Discontinu ed, Routine NaCl 0.9% 0 2023- No 1000mL at 999 Uni vers (NS) bolus 3-25 03-25 mL/hr, ity of infusion 00:15: 03:18 1,000 mL, [place] as 1,000 mL 00 :00 IV Medical Infusion, Branch ONCE, 1 dose, On 12/10/22 at 1915, STAT ipratropium 2022-0 Yes .5mg 0.5 mg, Uni vers (ATROVENT) 3-24 Inhalation ity of 0.02 % 23:48: , Q4HPRN, [place] nebulizer 58 Starting Medica l solution on Tue Branch 0.5 mg 12/10/22 at 1848, Until Discontinu ed, Routine, Wheezing, Shortness of Breath NaCl 0.9% 2022-0 2023- No 500mL at 999 Univ ers (NS) bolus 3-18 03-18 mL/hr, 500 it y of infusion 16:15: 15:41 mL, IV [place] 500 mL 00 :58 Piggyback, Medical ONCE, 1 Branch dose, On 12/04/22 at 1115, STAT carvediloL 3-0 Yes 3.125mg Take 1 [facility] [place] 3.125 mg 3-18 tablet by ity of tablet 12:44: mouth in [place] [address] the Medical morning Branch and 1 tablet in the evening. Take with meals. busPIRone 2023-0 Yes 10mg Take 1 Univer s 10 mg 3-18 tablet by ity of tablet 12:44: mouth in [place] [address] the Medical morning Branch and 1 tablet in the evening. busPIRone 2023-0 Yes 30mg Take 1 Univer s 30 mg 3-18 tablet by ity of tablet 12:44: mouth in [place] [address] the Medical morning Branch and 1 tablet in the evening. KCL 20 mEq 2022-0 Yes Take by Univ ers tablet 3-18 mouth 2 ity of 12:44: (two) [place] [address] times Medical daily. Branch benazepriL 2023-0 Yes 10mg Take 1 Unive rs 10 mg 3-18 tablet by ity of tablet 12:44: mouth in [place] 03 the Medical morning. Branch rivaroxaban 3-0 Yes 15mg Take 1 Univ ers (XARELTO) 3-18 tablet by ity o f 15 mg 12:44: mouth in [facility] 03 the Medical morning. Branch carvediloL 2023-0 Yes 3.125mg Take 1 [facility] 3.125 mg 3-18 tablet by ity of tablet 12:44: mouth in [place] [address] the Medical morning Branch and 1 tablet in the evening. Take with meals. busPIRone 2023-0 Yes 10mg Take 1 Univer s 10 mg 3-18 tablet by ity of tablet 12:44: mouth in [place] [address] the Medical morning Branch and 1 tablet in the evening. busPIRone 2023-0 Yes 30mg Take 1 Univer s 30 mg 3-18 tablet by ity of tablet 12:44: mouth in [place] [address] the Medical morning Branch and 1 tablet in the evening. KCL 20 mEq 2023-0 Yes Take by Univ ers tablet 3-18 mouth 2 ity of 12:44: (two) [place] [address] times Medical daily. Branch benazepriL 2023-0 Yes 10mg Take 1 Unive rs 10 mg 3-18 tablet by ity of tablet 12:44: mouth in [place] [address] the Medical morning. Branch rivaroxaban 2023-0 Yes 15mg Take 1 Univ ers (XARELTO) 3-18 tablet by ity o f 15 mg 12:44: mouth in [facility] 03 the Medical morning. Branch carvediloL 2023-0 Yes 3.125mg Take 1 [facility] 3.125 mg 3-18 tablet by ity of tablet 12:44: mouth in [place] [address] the Medical morning Branch and 1 tablet in the evening. Take with meals. busPIRone 2023-0 Yes 10mg Take 1 Univer s 10 mg 3-18 tablet by ity of tablet 12:44: mouth in [place] [address] the Medical morning Branch and 1 tablet in the evening. busPIRone 2023-0 Yes 30mg Take 1 Univer s 30 mg 3-18 tablet by ity of tablet 12:44: mouth in [place] [address] the Medical morning Branch and 1 tablet in the evening. KCL 20 mEq 2023-0 Yes Take by Univ ers tablet 3-18 mouth 2 ity of 12:44: (two) [place] [address] times Medical daily. Branch benazepriL 2023-0 Yes 10mg Take 1 Unive rs 10 mg 3-18 tablet by ity of tablet 12:44: mouth in [place] 03 the Medical morning. Branch rivaroxaban 2023-0 Yes 15mg Take 1 Univ ers (XARELTO) 3-18 tablet by ity o f 15 mg 12:44: mouth in [place] tablet 03 the Medical morning. Branch carvediloL 2022-0 Yes 3.125mg Take 1 [facility] 3.125 mg 3-18 tablet by ity of tablet 12:44: mouth in [place] 03 the Medical morning Branch and 1 tablet in the evening. Take with meals. busPIRone 3-0 Yes 10mg Take 1 Univer s 10 mg 3-18 tablet by ity of tablet 12:44: mouth in [place] 03 the Medical morning Branch and 1 tablet in the evening. busPIRone 202-0 Yes 30mg Take 1 Univer s 30 mg 3-18 tablet by ity of tablet 12:44: mouth in [place] 03 the Medical morning Branch and 1 tablet in the evening. KCL 20 mEq 2022-0 Yes Take by Univ ers tablet 3-18 mouth 2 ity of 12:44: (two) [place] 03 times Medical daily. Branch benazepriL 2022-0 Yes 10mg Take 1 Unive rs 10 mg 3-18 tablet by ity of tablet 12:44: mouth in [place] 03 the Medical morning. Branch rivaroxaban 2022-0 Yes 15mg Take 1 Univ ers (XARELTO) 3-18 tablet by ity o f 15 mg 12:44: mouth in [place] tablet 03 the Medical morning. Branch albuterol 2022-0 Yes [id number] 2{puff} Inhale 2 Univers 90 3-18 Puffs ity of mcg/actuati 00:00: every 6 [place] on inhaler 00 (six) Medical hours as Branch needed for Wheezing or Shortness of Breath. albuterol 2022-0 Yes [id number] 2{puff} Inhale 2 Univers 90 3-18 Puffs ity of mcg/actuati 00:00: every 6 [place] on inhaler 00 (six) Medical hours as Branch needed for Wheezing or Shortness of Breath. albuterol 2022-0 Yes [id number] 2{puff} Inhale 2 Univers 90 3-18 Puffs ity of mcg/actuati 00:00: every 6 [place] on inhaler 00 (six) Medical hours as Branch needed for Wheezing or Shortness of Breath. albuterol 2022-0 Yes [id number] 2{puff} Inhale 2 Univers 90 3-18 Puffs ity of mcg/actuati 00:00: every 6 [place] on inhaler 00 (six) Medical hours as Branch needed for Wheezing or Shortness of Breath. albuterol Yes [id number] 2{puff} Inhale 2 Univers 90 3-18 Puffs ity of mcg/actuati 00:00: every 6 [place] on inhaler 00 (six) Medical hours as Branch needed for Wheezing or Shortness of Breath. albuterol Yes [id number] 2{puff} Inhale 2 Univers 90 3-18 Puffs ity of mcg/actuati 00:00: every 6 [place] on inhaler 00 (six) Medical hours as Branch needed for Wheezing or Shortness of Breath. albuterol Yes [id number] 2{puff} Inhale 2 Univers 90 3-18 Puffs ity of mcg/actuati 00:00: every 6 [place] on inhaler 00 (six) Medical hours as Branch needed for Wheezing or Shortness of Breath. albuterol Yes [id number] 2{puff} Inhale 2 Univers 90 3-18 Puffs ity of mcg/actuati 00:00: every 6 [place] on inhaler 00 (six) Medical hours as Branch needed for Wheezing or Shortness of Breath. albuterol Yes [id number] 2{puff} Inhale 2 Univers 90 3-18 Puffs ity of mcg/actuati 00:00: every 6 [place] on inhaler 00 (six) Medical hours as Branch needed for Wheezing or Shortness of Breath. albuterol Yes [id number] 2{puff} Inhale 2 Univers 90 3-18 Puffs ity of mcg/actuati 00:00: every 6 [place] on inhaler 00 (six) Medical hours as Branch needed for Wheezing or Shortness of Breath. albuterol Yes [id number] 2{puff} Inhale 2 Univers 90 3-18 Puffs ity of mcg/actuati 00:00: every 6 [place] on inhaler 00 (six) Medical hours as Branch needed for Wheezing or Shortness of Breath. albuterol Yes [id number] 2{puff} Inhale 2 Univers 90 3-18 Puffs ity of mcg/actuati 00:00: every 6 [place] on inhaler 00 (six) Medical hours as Branch needed for Wheezing or Shortness of Breath. albuterol No [id number] 2{puff} Inhale 2 Univers 90 3-18 05-03 Puffs ity of mcg/actuati 00:00: 00:00 every 6 [place] on inhaler 00 :00 (six) Medical hours as Branch needed for Wheezing or Shortness of Breath. tiotropium No [id number] 18ug Inhale 1 Univers 18 mcg 3-18 04-18 capsule in ity of inhalation 00:00: 04:59 the [place] 00 :00 morning Medical for 30 Branch days. tiotropium No [id number] 18ug Inhale 1 Univers 18 mcg 3-18 04-18 capsule in ity of inhalation 00:00: 04:59 the [place] 00 :00 morning Medical for 30 Branch days. tiotropium No [id number] 18ug Inhale 1 Univers 18 mcg 3-18 04-18 capsule in ity of inhalation 00:00: 04:59 the [place] 00 :00 morning Medical for 30 Branch days. tiotropium 2022- No [id number] 18ug Inhale 1 Univers 18 mcg 3-18 04-18 capsule in ity of inhalation 00:00: 04:59 the [place] 00 :00 morning Medical for 30 Branch days. tiotropium 2022- No [id number] 18ug Inhale 1 Univers 18 mcg 3-18 04-18 capsule in ity of inhalation 00:00: 04:59 the [place] 00 :00 morning Medical for 30 Branch days. tiotropium 2022- No [id number] 18ug Inhale 1 Univers 18 mcg 3-18 04-18 capsule in ity of inhalation 00:00: 04:59 the [place] 00 :00 morning Medical for 30 Branch days. tiotropium No [id number] 18ug Inhale 1 Univers 18 mcg 3-18 04-18 capsule in ity of inhalation 00:00: 04:59 the [place] 00 :00 morning Medical for 30 Branch days. tiotropium 2022- No [id number] 18ug Inhale 1 Univers 18 mcg 3-18 04-18 capsule in ity of inhalation 00:00: 04:59 the [place] 00 :00 morning Medical for 30 Branch days. doxycycline 2022-2022- No [id number] 100mg Take 1 Univers hyclate 100 3-18 03-24 capsule by i ty of mg capsule 00:00: 04:59 mouth [place] 00 :00 every 12 Medical (twelve) Branch hours for 5 days. predniSONE 2022-0 2022- No [id number] 40mg Take 2 Univers 20 mg 3-18 03-24 tablets by ity of tablet 00:00: 04:59 mouth in [place] 00 :00 the Medical morning Branch for 5 days. doxycycline 2022-0 2022- No [id number] 100mg Take 1 Univers hyclate 100 3-18 03-24 capsule by i ty of mg capsule 00:00: 04:59 mouth [place] 00 :00 every 12 Medical (twelve) Branch hours for 5 days. predniSONE 2022-0 2022- No [id number] 40mg Take 2 Univers 20 mg 3-18 03-24 tablets by ity of tablet 00:00: 04:59 mouth in [place] 00 :00 the Medical morning Branch for 5 days. rivaroxaban Yes 15mg 15 mg, Univ ers (XARELTO) 3-17 Oral, ity of tablet 15 17:15: DAILY, [place] mg 00 First dose Medical (after Branch last modificati on) on Tue12/03/22 at 1215, Until Discontinu ed, Routine enoxaparin 2022- No 40mg 40 mg, Univ ers (LOVENOX) 16 -17 Subcutaneo ity of injection 22:00: 16:06 , DAILY, [place] 40 mg 00 :59 First dose Medical on [facility] Branch 12/02/22 at 1700, Until Discontinu ed, Routine methylPREDN Yes 40mg 40 mg, Univ ers ISolone sod 3-16 Intravenou it y of succ 19:00: s, Q8H, [place] (SOLU-MEDRO 00 First dose Me dical L (PF)) on [facility] Branch injection 12/02/22 at 40 mg 1400, Until Discontinu ed, 1 mL codeine-gua Yes 5mL 5 mL, Unive rs ifenesin 12-02 Oral, ity of (ROBITUSSIN 16:25: Q6HPRN, [place] AC) 10-100 07 Starting Medic al mg/5 mL on [place] Branch oral 12/02/22 at solution 5 1125, mL Until Discontinu ed, Routine, Cough levalbutero 2022-0 Yes 1.25mg 1.25 mg, Univers l (XOPENEX) 16 Inhalation it y of nebulizer 13:00: , Q4H, [place] solution 00 First dose Medic al 1.25 mg on [place] Branch 12/02/22 at 0800, Until Discontinu ed, Routine ipratropium 0 Yes .5mg 0.5 mg, Uni vers (ATROVENT) 12-02 Inhalation ity of 0.02 % 13:00: , Q4H, [place] nebulizer 00 First dose Medi lucho solution on [place] Branch 0.5 mg 12/02/22 at 0800, Until Discontinu ed, Routine doxycycline 0 202- No 100mg 100 mg, U nivers hyclate 12-02 03-21 Oral, Q12H ity o f (Vibramycin 11:45: 11:44 ABX, 10 [place] ) capsule 00 :00 doses, Medical 100 mg First dose Branch on [place] 12/02/22 at 0645, Last dose on 12/06/22 at 1845, MICHAEL
Re ason for Anti-Infec tive: Empiric Therapy for Suspected Infection< br>Empiric Therapy Site: Respirator y
Durat ion of therapy: 5 days NaCl 0.9% 2022- No 1000mL at 75 Univ ers (NS) IV 12-02 03-16 mL/hr, IV ity of infusion 11:45: 14:24 Infusion, [place] 1,000 mL 00 :54 CONTINUOUS Medic al , Starting Branch on [place] 12/02/22 at 0645, Until [place] 12/02/22 at 0924, Routine famotidine 0 Yes 20mg 20 mg, Unive rs (PEPCID AC) 16 Oral, ity of tablet 20 11:30: BIDPRN, [place] mg 03 Starting Medical on [place] Branch 12/02/22 at 0630, Until Discontinu ed, Routine, Indigestio n, Heartburn ondansetron 0 Yes 4mg 4 mg, Slow Univers (ZOFRAN 16 IV Push, ity of (PF)) 11:30: Q6HPRN, [place] injection 4 03 Starting Medi lucho mg on [place] Branch 12/02/22 at 0630, Until Discontinu ed, Routine, Nausea and Vomiting (N/V) bisacodyL 0 Yes 10mg 10 mg, Univer s (DULCOLAX) 16 Oral, ity of tablet 10 11:30: QDAILYPRN, [place] mg 03 Starting Medical on [place] Branch 12/02/22 at 0630, Until Discontinu ed, Routine, Constipati on acetaminoph 0 Yes 650mg 650 mg, Un ig[facility] en 16 Oral, ity of (TYLENOL) 11:30: Q6HPRN, [place] tablet 650 03 Starting Medic al mg on [place] Branch 12/02/22 at 0630, Until Discontinu ed, Routine, Pain (scale 1-3) methylpredn 2022- No 125mg 125 mg, U nivers isolone sod 12-02 Intravenou i ty of succ 06:15: 05:27 s, ONCE, 1 [place] (SOLU-MEDRO 00 :00 dose, On Medi lucho L) [place] Branch injection 12/02/22 at 125 mg 0115, 2 mL ipratropium 2022- No 6mL 6 mL, Univ ers -albuteroL 12-02 Inhalation it y of (DUONEB) 06:15: 05:33 , ONCE, 1 [place] 0.5 mg-3 00 :00 dose, On Medical mg(2.5 mg [place] Branch base)/3 mL 12/02/22 at nebulizer 0115, solution 6 Routine mL levalbutero 2022- No .63mg 0.63 mg, Univers l (XOPENEX) 12-01 Inhalation i ty of nebulizer 13:15: 12:38 , ONCE, 1 [place] solution 00 :00 dose, On Medical 0.63 mg Wed Branch 12/01/22 at 0815, Routine ipratropium 2022-0 2022- No .5mg 0.5 mg, Un igor (ATROVENT) 12-01 Inhalation it y of 0.02 % 12:30: 12:38 , ONCE, 1 [place] nebulizer 00 :00 dose, On Medica l solution Wed Branch 0.5 mg 12/01/22 at 0730, MICHAEL levalbutero 2022- No 1.25mg 1.25 mg, Univers l (XOPENEX) 12-01 Inhalation i ty of nebulizer 11:15: 10:38 , ONCE, 1 [place] solution 00 :00 dose, On Medical 1.25 mg Wed Branch 12/01/22 at 0615, Routine ipratropium 2022- No .5mg 0.5 mg, Un igor (ATROVENT) 12-01 Inhalation it y of 0.02 % 10:30: 10:38 , ONCE, 1 [place] nebulizer 00 :00 dose, On Medica l solution Wed Branch 0.5 mg 12/01/22 at 0530, MICHAEL methylPREDN 2022- No 40mg 40 mg, Uni vers ISolone sod 12-01 Intravenou i ty of succ 10:30: 10:35 s, ONCE, 1 [place] (SOLU-MEDRO 00 :00 dose, On Medi lucho L (PF)) Wed Branch injection 12/01/22 at 40 mg 0530, MICHAEL Nebulizer & 0 Yes [id number] Use as Univers Compressor 3-15 directed ity o f For Neb 00:00: Medical Branch albuterol 2022-0 Yes [id number] 2{puff} Inhale 2 Univers 90 3-15 Puffs ity of mcg/actuati 00:00: every 4 [place] on inhaler 00 (four) Medical hours as Branch needed for Wheezing or Shortness of Breath. Nebulizer & 0 Yes [id number] Use as Univers Compressor 3-15 directed ity o f For Neb 00:00: Medical Branch albuterol 2022-0 Yes [id number] 2{puff} Inhale 2 Univers 90 3-15 Puffs ity of mcg/actuati 00:00: every 4 [place] on inhaler 00 (four) Medical hours as Branch needed for Wheezing or Shortness of Breath. Nebulizer & 2022-0 Yes [id number] Use as Univers Compressor 3-15 directed ity o f For Neb 00:00: Medical Branch albuterol 2022-0 Yes [id number] 2{puff} Inhale 2 Univers 90 3-15 Puffs ity of mcg/actuati 00:00: every 4 [place] on inhaler 00 (four) Medical hours as Branch needed for Wheezing or Shortness of Breath. Nebulizer & 2022-0 Yes [id number] Use as Univers Compressor 3-15 directed ity o f For Neb 00:00: Medical Branch Nebulizer & 2022-0 Yes [id number] Use as Univers Compressor 3-15 directed ity o f For Neb 00:00: Medical Branch Nebulizer & 2022-0 Yes [id number] Use as Univers Compressor 3-15 directed ity o f For Neb 00:00: Medical Branch Nebulizer & 2022-0 Yes [id number] Use as Univers Compressor 3-15 directed ity o f For Neb 00:00: Medical Branch Nebulizer & 2022-0 Yes [id number] Use as Univers Compressor 3-15 directed ity o f For Neb 00:00: Medical Branch Nebulizer & 2022-0 Yes [id number] Use as Univers Compressor 3-15 directed ity o f For Neb 00:00: Medical Branch Nebulizer & 2022-0 Yes [id number] Use as Univers Compressor 3-15 directed ity o f For Neb 00:00: Medical Branch Nebulizer & 2022-0 Yes [id number] Use as Univers Compressor 3-15 directed ity o f For Neb 00:00: Medical Branch Nebulizer & 2022-0 Yes [id number] Use as Univers Compressor 3-15 directed ity o f For Neb 00:00: Medical Branch Nebulizer & 2022-0 Yes [id number] Use as Univers Compressor 3-15 directed ity o f For Neb 00:00: Medical Branch Nebulizer & 2022-0 Yes [id number] Use as Univers Compressor 3-15 directed ity o f For Neb 00:00: Medical Branch Nebulizer & 2023-0 Yes [id number] Use as Univers Compressor 3-15 directed ity o f For Neb 00:00: Medical Branch Nebulizer & 2023-0 Yes [id number] Use as Univers Compressor 3-15 directed ity o f For Neb 00:00: Medical Branch Nebulizer & 2023-0 Yes [id number] Use as Univers Compressor 3-15 directed ity o f For Neb 00:00: Medical Branch Nebulizer & 3-0 Yes [id number] Use as Univers Compressor 3-15 directed ity o f For Neb 00:00: Medical Branch Nebulizer & 3-0 Yes [id number] Use as Univers Compressor 3-15 directed ity o f For Neb 00:00: Medical Branch Nebulizer & 3-0 Yes [id number] Use as Univers Compressor 3-15 directed ity o f For Neb 00:00: Medical Branch Nebulizer & 3-0 Yes [id number] Use as Univers Compressor 3-15 directed ity o f For Neb 00:00: Medical Branch Nebulizer & 3-0 Yes [id number] Use as Univers Compressor 3-15 directed ity o f For Neb 00:00: Medical Branch Nebulizer & 3-0 Yes [id number] Use as Univers Compressor 3-15 directed ity o f For Neb 00:00: Medical Branch Nebulizer & 2023-0 Yes [id number] Use as Univers Compressor 3-15 directed ity o f For Neb 00:00: Medical Branch Nebulizer & 3-0 Yes [id number] Use as Univers Compressor 3-15 directed ity o f For Neb 00:00: Medical Branch Nebulizer & 3-0 Yes [id number] Use as Univers Compressor 3-15 directed ity o f For Neb 00:00: Medical Branch Nebulizer & 3-0 Yes [id number] Use as Univers Compressor 3-15 directed ity o f For Neb 00:00: Medical Branch Nebulizer & 3-0 Yes [id number] Use as Univers Compressor 3-15 directed ity o f For Neb 00:00: [place] Kami 00 Medical Branch Nebulizer & 2022-0 Yes [id number] Use as Univers Compressor 3-15 directed ity o f For Neb 00:00: Medical Branch Nebulizer & 2022-0 Yes [id number] Use as Univers Compressor 3-15 directed ity o f For Neb 00:00: Medical Branch Nebulizer & 2022-0 Yes [id number] Use as Univers Compressor 3-15 directed ity o f For Neb 00:00: Medical Branch Nebulizer & 2022-0 Yes [id number] Use as Univers Compressor 3-15 directed ity o f For Neb 00:00: Medical Branch Nebulizer & 2022-0 Yes [id number] Use as Univers Compressor 3-15 directed ity o f For Neb 00:00: Medical Branch Nebulizer & 2022-0 Yes [id number] Use as Univers Compressor 3-15 directed ity o f For Neb 00:00: Medical Branch Nebulizer & 2022-0 Yes [id number] Use as Univers Compressor 3-15 directed ity o f For Neb 00:00: Medical Branch Nebulizer & 2022-0 Yes [id number] Use as Univers Compressor 3-15 directed ity o f For Neb 00:00: Medical Branch Nebulizer & 2022-0 Yes [id number] Use as Univers Compressor 3-15 directed ity o f For Neb 00:00: Medical Branch Nebulizer & 2022-0 Yes [id number] Use as Univers Compressor 3-15 directed ity o f For Neb 00:00: Medical Branch albuterol 2022-0 Yes [id number] 2{puff} Inhale 2 Univers 90 3-15 Puffs ity of mcg/actuati 00:00: every 4 [place] on inhaler 00 (four) Medical hours as Branch needed for Wheezing or Shortness of Breath. predniSONE 0 Yes [id number] 50mg Take 1 Univers 50 mg 3-15 tablet by ity of tablet 00:00: mouth in [place] 00 the Medical morning. Branch Nebulizer & 2022-0 Yes [id number] Use as Univers Compressor 3-15 directed ity o f For Neb 00:00: [place] Medical Branch albuterol Yes [id number] 2{puff} Inhale 2 Univers 90 3-15 Puffs ity of mcg/actuati 00:00: every 4 [place] on inhaler 00 (four) Medical hours as Branch needed for Wheezing or Shortness of Breath. albuterol 2022- No [id number] 2{puff} Inhale 2 Univers 90 3-15 03-26 Puffs ity of mcg/actuati 00:00: 00:00 every 4 [place] on inhaler 00 :00 (four) Medical hours as Branch needed for Wheezing or Shortness of Breath. predniSONE 2022- No [id number] 50mg Take 1 Univers 50 mg 12-01-18 tablet by ity of tablet 00:00: 00:00 mouth in [place] 00 :00 the Medical morning. Branch omeprazole 2022- No 40mg Take 40 mg Univers 40 mg 11-28-12 by mouth ity of capsule 14:11: 00:00 daily. [place] 21 :00 Medical Branch carvediloL 2022- No 25mg Take 25 mg Univers 25 mg 11-28-12 by mouth 2 ity of tablet 14:11: 00:00 (two) [place] 21 :00 times Medical daily with [place] meals. busPIRone 2022- No 30mg Take 30 mg U nivers 30 mg 11-28-12 by mouth 2 ity of tablet 14:11: 00:00 (two) [place] 21 :00 times Medical daily. Branch benazepriL 2022- No 10mg Take 10 mg Univers 10 mg 11-28-12 by mouth ity of tablet 14:11: 00:00 daily. [place] 21 :00 Medical Branch hydroCHLORO 2022- No 25mg Take 25 mg Univers thiazide 25 11-28-12 by mouth ity of mg tablet 14:11: 00:00 daily. [place] 21 :00 Medical Branch levalbutero Yes .63mg 0.63 mg, U nivers l (XOPENEX) 3-12 Inhalation it y of nebulizer 13:00: , TID, [place] solution 00 First dose Medic al 0.63 mg (after Branch last modificati on) on 11/28/22 at 0800, Until Discontinu ed, Routine ipratropium 2022-0 Yes .5mg 0.5 mg, Uni vers (ATROVENT) 11-27 Inhalation ity of 0.02 % 20:00: , TID, [place] nebulizer 00 First dose Medi lucho solution (after Branch 0.5 mg last modificati on) on [facility] 11/27/22 at 1400, Until Discontinu ed, Routine nicotine 2022-0 Yes 1{patch 1 Patch, Un igor (NICODERM) 11-27 } Topical, ity o f 21 mg/24 hr 17:30: Administer [place] patch 1 00 over 24 Medical Patch Hours, Branch Q24H, First dose on [facility] 11/27/22 at 1130, Until Discontinu ed, Routine busPIRone 2022-0 Yes 10mg 10 mg, Univer s (BUSPAR) 11-27 Oral, TID, ity o f tablet 10 16:15: First dose [place] mg 00 on [facility] Medical 11/27/22 at Branch 1015, Until Discontinu ed, Routine aspirin 2022-0 Yes 81mg 81 mg, Univers chewable 11-27 Oral, ity of tablet 81 16:15: DAILY, [place] mg 00 First dose Medical on [facility] Branch 11/27/22 at 1015, Until Discontinu ed, Routine foLIC acid 2022-0 Yes 1mg 1 mg, Univer s (FOLATE) 11-27 Oral, ity of tablet 1 mg 15:00: DAILY, [place] 00 First dose Medical on [facility] Branch 11/27/22 at 0900, Until Discontinu ed, Routine rivaroxaban 2022-0 Yes 20mg 20 mg, Univ ers (XARELTO) 11-27 Oral, ity of tablet 20 15:00: DAILY, [place] mg 00 First dose Medical on [facility] Branch 11/27/22 at 0900, Until Discontinu ed, Routine omeprazole 3-0 Yes 40mg 40 mg, Unive rs (PRILOSEC) 11-27 Oral, ity of capsule 40 15:00: DAILY, [place] mg 00 First dose Medical on Sat Branch 11/27/22 at 0900, Until Discontinu ed predniSONE 2023-0 2023- No 40mg 40 mg, Univ ers (DELTASONE) 11-27 03-16 Oral, ity of tablet 40 15:00: 13:59 DAILY, 5 [place] mg 00 :00 doses, Medical First dose Branch on Tue11/27/22 at 0900, Last dose on Tue12/01/22 at 0900, Routine carvediloL 2022-0 Yes 25mg 25 mg, Unive rs (COREG) 3-11 Oral, BID ity of tablet 25 14:00: MEALS, [place] mg 00 First dose Medical on [facility] Branch 11/27/22 at 0800, Until Discontinu ed, Routine levalbutero 2023-0 2023- No .31mg 0.31 mg, Univers l (XOPENEX) 11-27 0312 Inhalation i ty of nebulizer 14:00: 12:33 , TID, [place] solution 00 :58 First dose Medic al 0.31 mg on [facility] Branch 11/27/22 at 0800, Until Discontinu ed, Routine ipratropium 2022-0 2022- No .5mg 0.5 mg, Un igor (ATROVENT) 11-27 Inhalation it y of 0.02 % 14:00: 18:48 , QID, [place] nebulizer 00 :56 First dose Medi lucho solution on [facility] Branch 0.5 mg 11/27/22 at 0800, Until Discontinu ed, Routine thiamine 2022-0 Yes 100mg 100 mg, Unive rs (VITAMIN 3-11 Oral, ity of B1) tablet 08:30: DAILY, [place] 100 mg 00 First dose Medical (after Branch last modificati on) on [facility] 11/27/22 at 0230, Until Discontinu ed, Routine LORazepam 2022-0 Yes 1mg 1 mg, Slow Un igor (ATIVAN) 11-27 IV Push, ity of injection 1 08:16: Q4HPRN, [place] mg 19 Starting Medical on [facility] Branch 11/27/22 at 0216, Until Discontinu ed, Routine, Agitation, Seizures, withdrawl levalbutero 2022-0 Yes 1.25mg 1.25 mg, Univers l (XOPENEX) 11-19 Inhalation it y of nebulizer 14:00: , TID, [place] solution 00 First dose Medic al 1.25 mg on Tue Branch 11/19/22 at 0800, Until Discontinu ed, Routine ipratropium 2023-0 2023- No .5mg 0.5 mg, [facility] (ATROVENT) 11-19 Inhalation it y of 0.02 % 09:30: 08:47 , ONCE, 1 [place] nebulizer 00 :00 dose, On Medica l solution 11/19/22 Branc h 0.5 mg at 0330, Routine levalbutero 2022-0 2022- No 1.25mg 1.25 mg, Univers l (XOPENEX) 11-19 Inhalation i ty of nebulizer 02:00: 01:21 , ONCE, 1 [place] solution 00 :00 dose, On Medical 1.25 mg [place] 11/18/22 Branch at 1999, Routine thiamine 3-0 3- No [id number] 100mg Take 1 [facility] 100 mg 2-24 -27 tablet by ity of tablet 00:00: 04:59 mouth in [place] 00 :00 the [facility] for 30 days. thiamine 2022-0 2023- No [id number] 100mg Take 1 Univers 100 mg 2-24 -27 tablet by ity of tablet 00:00: 04:59 mouth in [place] 00 :00 the [facility] for 30 days. thiamine 2023-0 2023- No [id number] 100mg Take 1 Univers 100 mg 2-24 -27 tablet by ity of tablet 00:00: 04:59 mouth in [place] 00 :00 the [facility] for 30 days. thiamine 2023-0 2023- No [id number] 100mg Take 1 Univers 100 mg 2-24 -27 tablet by ity of tablet 00:00: 04:59 mouth in [place] 00 :00 the [facility] for 30 days. thiamine 2023-0 2023- No [id number] 100mg Take 1 Univers 100 mg 2-24 -27 tablet by ity of tablet 00:00: 04:59 mouth in [place] 00 :00 the [facility] morning [place] for 30 days. thiamine 2023-0 2023- No [id number] 100mg Take 1 Univers 100 mg 2-24 03-12 tablet by ity of tablet 00:00: 00:00 mouth in [place] 00 :00 the [facility] for 30 days. thiamine 2023-0 Yes 100mg 100 mg, Unive rs (VITAMIN 2-23 Oral, ity of B1) tablet 15:00: DAILY, [place] 100 mg 00 First dose Medical on [place] Branch 11/11/22 at 0900, Until Discontinu ed, Routine omeprazole 2023-0 Yes 40mg Take 40 mg U nivers 40 mg 2-23 by mouth ity of capsule 13:41: daily. [address] carvediloL 2023-0 Yes 25mg Take 25 mg U nivers 25 mg 2-23 by mouth 2 ity of tablet 13:41: (two) [place] [address] times Medical daily with Branch meals. busPIRone 2023-0 Yes 30mg Take 30 mg [facility] [place] 30 mg 2-23 by mouth 2 ity of tablet 13:41: (two) [place] [address] times Medical daily. Branch benazepriL 2023-0 Yes 10mg Take 10 mg U nivers 10 mg 2-23 by mouth ity of tablet 13:41: daily. [address] hydroCHLORO 2023-0 Yes 25mg Take 25 mg Univers thiazide 25 2-23 by mouth ity of mg tablet 13:41: daily. [address] omeprazole 2023-0 Yes 40mg Take 40 mg U nivers 40 mg 2-23 by mouth ity of capsule 13:41: daily. [address] carvediloL 2023-0 Yes 25mg Take 25 mg U nivers 25 mg 2-23 by mouth 2 ity of tablet 13:41: (two) [place] [address] times Medical daily with Branch meals. busPIRone 2023-0 Yes 30mg Take 30 mg [facility] [place] 30 mg 2-23 by mouth 2 ity of tablet 13:41: (two) [place] [address] times Medical daily. Branch benazepriL 2023-0 Yes 10mg Take 10 mg U nivers 10 mg 2-23 by mouth ity of tablet 13:41: daily. [address] hydroCHLORO 2023-0 Yes 25mg Take 25 mg Univers thiazide 25 2-23 by mouth ity of mg tablet 13:41: daily. [address] omeprazole 2023-0 Yes 40mg Take 40 mg U nivers 40 mg 2-23 by mouth ity of capsule 13:41: daily. [address] carvediloL 2023-0 Yes 25mg Take 25 mg U nivers 25 mg 2-23 by mouth 2 ity of tablet 13:41: (two) [place] [address] times Medical daily with Branch meals. busPIRone 2023-0 Yes 30mg Take 30 mg [facility] [place] 30 mg 2-23 by mouth 2 ity of tablet 13:41: (two) [place] [address] times Medical daily. Branch benazepriL 2023-0 Yes 10mg Take 10 mg U nivers 10 mg 2-23 by mouth ity of tablet 13:41: daily. [address] hydroCHLORO 2023-0 Yes 25mg Take 25 mg Univers thiazide 25 2-23 by mouth ity of mg tablet 13:41: daily. [address] omeprazole 2023-0 Yes 40mg Take 40 mg U nivers 40 mg 2-23 by mouth ity of capsule 13:41: daily. [address] carvediloL 2023-0 Yes 25mg Take 25 mg U nivers 25 mg 2-23 by mouth 2 ity of tablet 13:41: (two) [place] [address] times Medical daily with Branch meals. busPIRone 2023-0 Yes 30mg Take 30 mg [facility] [place] 30 mg 2-23 by mouth 2 ity of tablet 13:41: (two) [place] [address] times Medical daily. Branch benazepriL 2023-0 Yes 10mg Take 10 mg U nivers 10 mg 2-23 by mouth ity of tablet 13:41: daily. [address] hydroCHLORO 2023-0 Yes 25mg Take 25 mg Univers thiazide 25 2-23 by mouth ity of mg tablet 13:41: daily. [address] omeprazole 2023-0 Yes 40mg Take 40 mg U nivers 40 mg 2-23 by mouth ity of capsule 13:41: daily. [address] carvediloL 2023-0 Yes 25mg Take 25 mg U nivers 25 mg 2-23 by mouth 2 ity of tablet 13:41: (two) [place] [address] times Medical daily with Branch meals. busPIRone 2023-0 Yes 30mg Take 30 mg [facility] [place] 30 mg 2-23 by mouth 2 ity of tablet 13:41: (two) [place] [address] times Medical daily. Branch benazepriL 2023-0 Yes 10mg Take 10 mg U nivers 10 mg 2-23 by mouth ity of tablet 13:41: daily. [address] hydroCHLORO 2023-0 Yes 25mg Take 25 mg Univers thiazide 25 2-23 by mouth ity of mg tablet 13:41: daily. [place] 29 Medical Branch foLIC acid 2022- No 1mg 1 mg, Unive rs (FOLATE) 2-11 11- Oral, ity of tablet 1 mg 00:15: 00:26 ONCE, 1 [place] 00 :00 dose, On Medical Wed Branch 11/10/22 at 1815, Routine benzocaine- 0 Yes [id number] 1{lozen Take 1 Univers menthoL 2-23 ge} Lozenge by ity of lozenge 00:00: mouth [place] 00 every 4 Medical (four) Branch hours as needed for Sore throat. budesonide- Yes [id number] 2{puff} Inhale 2 Univers formoteroL 2-23 Puffs in ity o f 80-4.5 00:00: the [place] mcg/actuati 00 morning Medic al on inhaler and 2 Branch Puffs in the evening. benzocaine- Yes [id number] 1{lozen Take 1 Univers menthoL 2-23 ge} Lozenge by ity of lozenge 00:00: mouth [place] 00 every 4 Medical (four) Branch hours as needed for Sore throat. budesonide- Yes [id number] 2{puff} Inhale 2 Univers formoteroL 2-23 Puffs in ity o f 80-4.5 00:00: the [place] mcg/actuati 00 morning Medic al on inhaler and 2 Branch Puffs in the evening. benzocaine- Yes [id number] 1{lozen Take 1 Univers menthoL 2-23 ge} Lozenge by ity of lozenge 00:00: mouth [place] 00 every 4 Medical (four) Branch hours as needed for Sore throat. budesonide- Yes [id number] 2{puff} Inhale 2 Univers formoteroL 2-23 Puffs in ity o f 80-4.5 00:00: the [place] mcg/actuati 00 morning Medic al on inhaler and 2 Branch Puffs in the evening. benzocaine- 0 Yes [id number] 1{lozen Take 1 Univers menthoL 2-23 ge} Lozenge by ity of lozenge 00:00: mouth [place] 00 every 4 Medical (four) Branch hours as needed for Sore throat. budesonide- 2022-0 Yes [id number] 2{puff} Inhale 2 Univers formoteroL 2-23 Puffs in ity o f 80-4.5 00:00: the [place] mcg/actuati 00 morning Medic al on inhaler and 2 Branch Puffs in the evening. benzocaine- 2022-0 Yes [id number] 1{lozen Take 1 Univers menthoL 2-23 ge} Lozenge by ity of lozenge 00:00: mouth [place] 00 every 4 Medical (four) Branch hours as needed for Sore throat. budesonide- 2022-0 Yes [id number] 2{puff} Inhale 2 Univers formoteroL 2-23 Puffs in ity o f 80-4.5 00:00: the [place] mcg/actuati 00 morning Medic al on inhaler and 2 Branch Puffs in the evening. benzocaine- 2022-0 2022- No [id number] 1{lozen Take 1 Univers menthoL 2-23 03-12 ge} Lozenge by ity o f lozenge 00:00: 00:00 mouth [place] 00 :00 every 4 Medical (four) Branch hours as needed for Sore throat. budesonide- 2022-0 2022- No [id number] 2{puff} Inhale 2 Univers formoteroL 2-23 03-12 Puffs in ity of 80-4.5 00:00: 00:00 the [place] mcg/actuati 00 :00 morning Medic al on inhaler and 2 Branch Puffs in the evening. sodium 2022-0 2022- No [id number] 1g Take 1 Uni vers chloride 1 2-23 03-06 tablet by ity of gram tablet 00:00: 05:59 mouth in [place] 00 :00 the Medical morning Branch and 1 tablet at noon and 1 tablet in the evening. Take with meals. Do all this for 10 days. sodium 3-0 2022- No [id number] 1g Take 1 Uni vers chloride 1 2-23 03-06 tablet by ity of gram tablet 00:00: 05:59 mouth in [place] 00 :00 the Medical morning Branch and 1 tablet at noon and 1 tablet in the evening. Take with meals. Do all this for 10 days. sodium 2022-0 2022- No [id number] 1g Take 1 Uni vers chloride 1 11-11- tablet by ity of gram tablet 00:00: 05:59 mouth in [place] 00 :00 [facility] and 1 tablet at noon and 1 tablet in the evening. Take with meals. Do all this for 10 days. sodium 2023-0 2022- No [id number] 1g Take 1 Uni vers chloride 1 11-11- tablet by ity of gram tablet 00:00: 05:59 mouth in [place] 00 :00 [facility] and 1 tablet at noon and 1 tablet in the evening. Take with meals. Do all this for 10 days. levoFLOXaci 2022-0 2022- No [id number] 750mg Take 1 Univers n 750 mg 11-11 tablet by ity o f tablet 00:00: 05:59 mouth [place] 00 :00 every 24 Medical ([facility]) hours for 5 days. levoFLOXaci 2022-0 2022- No [id number] 750mg Take 1 Univers n 750 mg 11-11 tablet by ity o f tablet 00:00: 05:59 mouth [place] 00 :00 every 24 Medical ([facility]) hours for 5 days. predniSONE 2022-0 2022- No [id number] 40mg Take 2 Univers 20 mg 2-11 11-27 tablets by ity of tablet 00:00: 05:59 mouth in [place] 00 :00 [facility] for 3 days. predniSONE 2023-0 2022- No [id number] 40mg Take 2 Univers 20 mg 2-11 11-27 tablets by ity of tablet 00:00: 05:59 mouth in [place] 00 :00 [facility] for 3 days. sodium 2022-0 Yes 1g 1 g, Oral, Unive rs chloride 2- TID MEALS, ity o f tablet 1 g 23:15: First dose [place] 00 on Tue11/10/22 at [place] 1715, Until Discontinu ed, Routine benzocaine- 2022-0 Yes 1{lozen 1 Lozenge, Univers menthoL 2- ge} Oral, ity of (CEPACOL 20:49: Q4HPRN, [place] SORE THROAT 25 Starting Medi lucho (JACINTO-MEN)) on Tue Branch lozenge 1 11/10/22 at Lozenge 1449, Until Discontinu ed, Routine, Sore throat budesonide- 2022-0 Yes 2{puff} 2 Puff, Univers formoteroL 11-10 Inhalation ity of (SYMBICORT) 17:30: , BID, [place] 80-4.5 00 First dose Medical mcg/actuati on Tue on inhaler 11/10/22 at 2 Puff 1130, Until Discontinu ed, Routine omeprazole 0 Yes 40mg 40 mg, Unive rs (PRILOSEC) 11-10 Oral, ity of capsule 40 15:00: DAILY, [place] mg 00 First dose Medical on Tue Branch 11/10/22 at 0900, Until Discontinu ed rivaroxaban 0 Yes 20mg 20 mg, Univ ers (XARELTO) 11-10 Oral, ity of tablet 20 15:00: DAILY, [place] mg 00 First dose Medical on Tue Branch 11/10/22 at 0900, Until Discontinu ed, Routine aspirin 0 Yes 81mg 81 mg, Univers chewable 11-10 Oral, ity of tablet 81 15:00: DAILY, [place] mg 00 First dose Medical on Tue Branch 11/10/22 at 0900, Until Discontinu ed, Routine methylPREDN 2022- No 40mg 40 mg, Uni vers ISolone sod 11-10 Intravenou i ty of succ 15:00: 14:59 s, DAILY, [place] (SOLU-MEDRO 00 :00 4 doses, Medi lcuho L (PF)) First dose Branch injection on Tue 40 mg 11/10/22 at 0900, Last dose on 11/13/22 at 0900, 1 mL NaCl 0.9% 0 Yes 1000mL at 100 Univ ers (NS) IV 2-22 mL/hr, IV ity of infusion 09:00: Infusion, [place] 1,000 mL 00 CONTINUOUS Medic al , Starting Branch on Tue11/10/22 at 0300, Until Discontinu ed, Routine levoFLOXaci 0 2022- No 750mg 750 mg, IV Univers n in D5W 11-10 Piggyback, ity of (LEVAQUIN) 09:00: 08:59 at 100 [place] 750 mg/150 00 :00 mL/hr Medical mL Administer Branch Piggyback over 90 750 mg Minutes, Q24H ABX, 7 doses, First dose on Tue11/10/22 at 0300, Last dose on Tue11/16/22 at 0300, MICHAEL
Re ason for Anti-Infec tive: Empiric Therapy for Suspected Infection< br>Empiric Therapy Site: Urine
D uration of therapy: 5 days busPIRone 2022-0 Yes 30mg 30 mg, Univer s (BUSPAR) 2- Oral, BID, ity o f tablet 30 02:00: First dose [place] mg 00 on [facility] 11/09/22 at Branch 2000, Until Discontinu ed, Routine carvediloL 2022-0 Yes 25mg 25 mg, [facility] rs (COREG) - Oral, BID ity of tablet 25 23:00: MEALS, [place] mg 00 First dose Medical on [facility] [place] 11/09/22 at 1700, Until Discontinu ed, Routine ipratropium 2022-0 Yes .5mg 0.5 mg, Uni vers (ATROVENT) - Inhalation ity of 0.02 % 22:00: , Q4H, [place] nebulizer 00 First dose Medi lucho solution on [facility] [place] 0.5 mg 11/09/22 at 1600, Until Discontinu ed, Routine albuterol 2022-0 Yes 2.5mg 2.5 mg, Univ ers (PROVENTIL) 2 Inhalation it y of 2.5 mg /3 22:00: , Q4H, [place] mL (0.083 00 First dose Medi lucho %) on [facility] [place] nebulizer 11/09/22 at solution 1600, 2.5 mg Until Discontinu ed, Routine NaCl 0.9% 2022-0 2023- No 500mL at 999 Univ ers (NS) bolus 11-09 02-21 mL/hr, 500 it y of infusion 20:15: 21:30 mL, IV [place] 500 mL 00 :21 Infusion, Medical ONCE, 1 Branch dose, On [facility] 11/09/22 at 1415, STAT ondansetron 2022-0 Yes 4mg 4 mg, Slow Univers (ZOFRAN 2-21 IV Push, ity of (PF)) 20:04: Q6HPRN, [place] injection 4 17 Starting Medi lucho mg on e Branch 11/09/22 at 1404, Until Discontinu ed, Routine, Nausea and Vomiting (N/V) acetaminoph 3-0 Yes 650mg 650 mg, [facility] en 11-09 Oral, ity of (TYLENOL) 20:04: Q6HPRN, [place] tablet 650 07 Starting Medic al mg on e Branch 11/09/22 at 1404, Until Discontinu ed, Routine, Pain (scale 1-3), Temp > 38 C albuterol 2022-0 2023- No 5mg 5 mg, Univer s (PROVENTIL) 11-09 Inhalation i ty of 2.5 mg /3 14:00: 14:05 , ONCE, 1 [place] mL (0.083 00 :00 dose, On Medica l %) e Branch nebulizer 11/09/22 at solution 5 0800, STAT mg albuterol 2022-0 2022- No 10mg 10 mg, Unive rs (PROVENTIL) 11-09 Inhalation i ty of 2.5 mg /3 11:00: 11:04 , ONCE, 1 [place] mL (0.083 00 :00 dose, On Medica l %) e Branch nebulizer 11/09/22 at solution 10 0500, STAT mg ipratropium 2022-0 2022- No .5mg 0.5 mg, [facility] (ATROVENT) 11-09 Inhalation it y of 0.02 % 09:00: 08:59 , ONCE, 1 [facility] nebulizer 00 :00 dose, On Medica l solution Tue Branch 0.5 mg 11/09/22 at 0300, MICHAEL albuterol 2022-0 3- No 2.5mg 2.5 mg, Uni vers (PROVENTIL) 11-09 Inhalation i ty of 2.5 mg /3 09:00: 08:59 , ONCE, 1 [place] mL (0.083 00 :00 dose, On Medica l %) e Branch nebulizer 11/09/22 at solution 0300, STAT 2.5 mg magnesium 3-0 2022- No 2g 2 g, IV Univ ers sulfate in 2-21 02-21 Piggyback, it y of water 2 08:30: 08:22 Administer [place] as gram/50 mL 00 :00 over 60 Medica l (4 %) Minutes, Branch infusion 2 ONCE, 1 g dose, On 11/09/22 at 0230, Routine methylPREDN 2022- No 125mg 125 mg, U nivers ISolone 11-09 Intravenou ity o f sodium 07:45: 07:41 s, ONCE, 1 [place] succ[place] 00 :00 dose, On Medica l (SOLU-MEDRO Tue Branch L) 11/09/22 at injection 0145, MICHAEL 125 mg ipratropium 2022- No .5mg 0.5 mg, [facility] (ATROVENT) 11-09 Inhalation it y of 0.02 % 07:45: 07:40 , ONCE, 1 [place] nebulizer 00 :00 dose, On Medica l solution Tue Branch 0.5 mg 11/09/22 at 0145, MICHAEL albuterol 2022- No 2.5mg 2.5 mg, Uni vers (PROVENTIL) 11-09 Inhalation i ty of 2.5 mg /3 07:45: 07:40 , ONCE, 1 [place] mL (0.083 00 :00 dose, On Medica l %) [facility] Branch nebulizer 11/09/22 at solution 0145, STAT 2.5 mg cephALEXin Yes [id number] 500mg Take 1 Univers (KEFLEX) 05-22 capsule by ity o f 500 mg 00:00: mouth 4 [place] capsule 00 (four) Medical times Branch daily. cephALEXin Yes [id number] 500mg Take 1 Univers (KEFLEX) 05-22 capsule by ity o f 500 mg 00:00: mouth 4 [place] capsule 00 (four) Medical times Branch daily. cephALEXin 2020-2022- No [id number] 500mg Take 1 Univers (KEFLEX) 05-22 capsule by ity of 500 mg 00:00: 00:00 mouth 4 [place] capsule 00 :00 (four) Medical times Branch daily. cefTRIAXone 2020- No 1000mg 1,000 mg, Univers (ROCEPHIN) 3-26 03- IV ity of 1,000 mg in 19:00: 18:23 Piggyback, [place] NaCl 0.9% 00 :00 ONCE, 1 Medical (NS) 50 mL dose, Fri Bran ch MINI-BAG 12/12/20 at 1400, 50 mL
Reas on for Anti-Infec tive: Empiric Therapy for Suspected Infection< br>Empiric Therapy Site: Urine
D uration of therapy: 72 hours carvediloL 2021-0 Yes 25mg Take 25 mg U nivers 25 mg 3-26 by mouth 2 ity of tablet 18:38: (two) [place] [address] times Medical daily with Branch meals. busPIRone 2021-0 Yes 30mg Take 30 mg [place] 30 mg 3-26 by mouth 2 ity of tablet 18:38: (two) [place] [address] times Medical daily. Branch benazepriL 1-0 Yes 10mg Take 10 mg U nivers 10 mg 3-26 by mouth ity of tablet 18:38: daily. [address] hydroCHLORO 2020-0 Yes 25mg Take 25 mg Univers thiazide 25 3-26 by mouth ity of mg tablet 18:38: daily. [address] carvediloL 2020-0 Yes 25mg Take 25 mg U nivers 25 mg 3-26 by mouth 2 ity of tablet 18:38: (two) [place] [address] times Medical daily with Branch meals. busPIRone 2021-0 Yes 30mg Take 30 mg [place] 30 mg 3-26 by mouth 2 ity of tablet 18:38: (two) [place] [address] times Medical daily. Branch benazepriL 2021-0 Yes 10mg Take 10 mg U nivers 10 mg 3-26 by mouth ity of tablet 18:38: daily. [address] hydroCHLORO 2021-0 Yes 25mg Take 25 mg Univers thiazide 25 3-26 by mouth ity of mg tablet 18:38: daily. [address] carvediloL 2021-0 Yes 25mg Take 25 mg U nivers 25 mg 3-26 by mouth 2 ity of tablet 18:38: (two) [place] [address] times Medical daily with Branch meals. busPIRone 2021-0 Yes 30mg Take 30 mg [facility] [place] 30 mg 3-26 by mouth 2 ity of tablet 18:38: (two) [place] 04 times Medical daily. Branch benazepriL 2021-0 Yes 10mg Take 10 mg U nivers 10 mg 3-26 by mouth ity of tablet 18:38: daily. [address] hydroCHLORO 2021-0 Yes 25mg Take 25 mg Univers thiazide 25 3-26 by mouth ity of mg tablet 18:38: daily. [address] carvediloL 2021-0 Yes 25mg Take 25 [...] by mouth ity of tablet 18:38: daily. [address] hydroCHLORO 2021-0 Yes 25mg Take 25 mg Univers thiazide 25 3-26 by mouth ity of mg tablet 18:38: daily. [address] carvediloL 2021-0 Yes 25mg Take 25 mg U nivers 25 mg 3-26 by mouth 2 ity of tablet 18:38: (two) [place] [address] times Medical daily with Branch meals. busPIRone 2021-0 Yes 30mg Take 30 mg [facility] [place] 30 mg 3-26 by mouth 2 ity of tablet 18:38: (two) [place] 04 times Medical daily. Branch benazepriL 2021-0 Yes 10mg Take 10 mg U nivers 10 mg 3-26 by mouth ity of tablet 18:38: daily. [address] hydroCHLORO 2021-0 Yes 25mg Take 25 mg Univers thiazide 25 3-26 by mouth ity of mg tablet 18:38: daily. [address] carvediloL 2021-0 Yes 25mg Take 25 mg U nivers 25 mg 3-26 by mouth 2 ity of tablet 18:38: (two) [place] [address] times Medical daily with Branch meals. busPIRone 2021-0 Yes 30mg Take 30 mg [facility] [place] 30 mg 3-26 by mouth 2 ity of tablet 18:38: (two) [place] 04 times Medical daily. Branch benazepriL 2021-0 Yes 10mg Take 10 mg U nivers 10 mg 3-26 by mouth ity of tablet 18:38: daily. [address] hydroCHLORO 2021-0 Yes 25mg Take 25 mg Univers thiazide 25 3-26 by mouth ity of mg tablet 18:38: daily. [address] carvediloL 2021-0 Yes 25mg Take 25 mg U nivers 25 mg 3-26 by mouth 2 ity of tablet 18:38: (two) [place] [address] times Medical daily with Branch meals. busPIRone 2021-0 Yes 30mg Take 30 mg [place] 30 mg 3-26 by mouth 2 ity of tablet 18:38: (two) [place] [address] times Medical daily. Branch benazepriL 2021-0 Yes 10mg Take 10 mg U nivers 10 mg 3-26 by mouth ity of tablet 18:38: daily. [address] hydroCHLORO 1-0 Yes 25mg Take 25 mg Univers thiazide 25 3-26 by mouth ity of mg tablet 18:38: daily. [address] carvediloL 2021-0 Yes 25mg Take 25 mg U nivers 25 mg 3-26 by mouth 2 ity of tablet 18:38: (two) [place] [address] times Medical daily with Branch meals. busPIRone 2021-0 Yes 30mg Take 30 mg [place] 30 mg 3-26 by mouth 2 ity of tablet 18:38: (two) [place] [address] times Medical daily. Branch benazepriL 2021-0 Yes 10mg Take 10 mg U nivers 10 mg 3-26 by mouth ity of tablet 18:38: daily. [address] hydroCHLORO 2021-0 Yes 25mg Take 25 mg Univers thiazide 25 3-26 by mouth ity of mg tablet 18:38: daily. [address] carvediloL 2021-0 Yes 25mg Take 25 mg U nivers 25 mg 3-26 by mouth 2 ity of tablet 18:38: (two) [place] [address] times Medical daily with Branch meals. busPIRone 2021-0 Yes 30mg Take 30 mg [place] 30 mg 3-26 by mouth 2 ity of tablet 18:38: (two) [place] [address] times Medical daily. Branch benazepriL 2021-0 Yes 10mg Take 10 mg U nivers 10 mg 3-26 by mouth ity of tablet 18:38: daily. [address] hydroCHLORO 1-0 Yes 25mg Take 25 mg Univers thiazide 25 3-26 by mouth ity of mg tablet 18:38: daily. [address] carvediloL 2021-0 Yes 25mg Take 25 [...] by mouth ity of tablet 18:38: daily. [address] hydroCHLORO 1-0 Yes 25mg Take 25 mg Univers thiazide 25 3-26 by mouth ity of mg tablet 18:38: daily. [address] carvediloL 1-0 Yes 25mg Take 25 [...] by mouth ity of tablet 18:38: daily. [address] hydroCHLORO 1-0 Yes 25mg Take 25 mg Univers thiazide 25 3-26 by mouth ity of mg tablet 18:38: daily. [address] carvediloL 2021-0 Yes 25mg Take 25 [...] by mouth ity of tablet 18:38: daily. [address] hydroCHLORO 2021-0 Yes 25mg Take 25 mg Univers thiazide 25 3-26 by mouth ity of mg tablet 18:38: daily. [address] carvediloL 2021-0 Yes 25mg Take 25 mg U nivers 25 mg 3-26 by mouth 2 ity of tablet 18:38: (two) [place] [address] times Medical daily with Branch meals. busPIRone 2021-0 Yes 30mg Take 30 mg [facility] 30 mg 3-26 by mouth 2 ity of tablet 18:38: (two) [place] 04 times Medical daily. Branch benazepriL 2021-0 Yes 10mg Take 10 mg U nivers 10 mg 3-26 by mouth ity of tablet 18:38: daily. [address] hydroCHLORO 1-0 Yes 25mg Take 25 mg Univers thiazide 25 3-26 by mouth ity of mg tablet 18:38: daily. [address] carvediloL 1-0 Yes 25mg Take 25 mg U nivers 25 mg 3-26 by mouth 2 ity of tablet 18:38: (two) [place] [address] times Medical daily with Branch meals. busPIRone 2021-0 Yes 30mg Take 30 mg [facility] 30 mg 3-26 by mouth 2 ity of tablet 18:38: (two) [place] 04 times Medical daily. Branch benazepriL 1-0 Yes 10mg Take 10 mg U nivers 10 mg 3-26 by mouth ity of tablet 18:38: daily. [address] hydroCHLORO 1-0 Yes 25mg Take 25 mg Univers thiazide 25 3-26 by mouth ity of mg tablet 18:38: daily. [address] carvediloL 2021-0 Yes 25mg Take 25 mg U nivers 25 mg 3-26 by mouth 2 ity of tablet 18:38: (two) [place] [address] times Medical daily with Branch meals. busPIRone 2021-0 Yes 30mg Take 30 mg [facility] [place] 30 mg 3-26 by mouth 2 ity of tablet 18:38: (two) [place] 04 times Medical daily. Branch benazepriL 2021-0 Yes 10mg Take 10 mg U nivers 10 mg 3-26 by mouth ity of tablet 18:38: daily. [address] hydroCHLORO 2021-0 Yes 25mg Take 25 mg Univers thiazide 25 12-12 by mouth ity of mg tablet 18:38: daily. [address] iohexol 2020- No [id number] 120mL 120 mL, Univers (OMNIPAQUE 12-12 Intravenou it y of 350 17:30: 17:21 s, ONCE, 1 [place] BULK-150 00 :00 dose, Fri Medica l mL) 12/12/20 at Branch injection 1230, 120 mL Routine aspirin 81 2020- No 81mg Take 81 mg Univers mg EC 12-12 by mouth ity of tablet 16:57: 00:00 daily. [place] 40 :00 [facility] Branch varenicline 2020- No 1mg Take 1 mg Univers (CHANTIX) 1 12-12 by mouth 2 i ty of mg tablet 16:57: 00:00 (two) [place] 18 :00 times Medical daily. Branch predniSONE 2020- No 20mg Take 20 mg Univers 20 mg 12-12 by mouth ity of tablet 16:57: 00:00 daily. [place] 12 :00 [facility] Branch fluticasone 2020- No 1{puff} Inhale 1 Univers -umeclidin- 12-12 Puff ity of vilanter 16:56: 00:00 daily. [place] (TRELEGY 46 :00 Medical ELLIPTA) Branch 100-62.5-25 mcg DsDv cefpodoxime Yes [id number] 100mg Take 1 Univers 100 mg -26 tablet by ity of tablet 00:00: mouth 2 [place] 00 (two) Medical times Branch daily. cefpodoxime 2020-0 Yes [id number] 100mg Take 1 Univers 100 mg 3-26 tablet by ity of tablet 00:00: mouth 2 [place] 00 (two) Medical times Branch daily. cefpodoxime 2020-0 Yes [id number] 100mg Take 1 Univers 100 mg 3-26 tablet by ity of tablet 00:00: mouth 2 [place] 00 (two) Medical times Branch daily. cefpodoxime 2020-0 Yes [id number] 100mg Take 1 Univers 100 mg -26 tablet by ity of tablet 00:00: mouth 2 [place] 00 (two) Medical times Branch daily. cefpodoxime 2021-0 Yes [id number] 100mg Take 1 Univers 100 mg 3-26 tablet by ity of tablet 00:00: mouth [place] (two) Medical times Branch daily. cefpodoxime 2021-0 Yes [id number] 100mg Take 1 Univers 100 mg 3-26 tablet by ity of tablet 00:00: mouth [place] (two) Medical times Branch daily. cefpodoxime 2021-0 Yes [id number] 100mg Take 1 Univers 100 mg 3-26 tablet by ity of tablet 00:00: mouth [place] (two) Medical times Branch daily. cefpodoxime 2021-0 Yes [id number] 100mg Take 1 Univers 100 mg 3-26 tablet by ity of tablet 00:00: mouth [place] ([facility]) Medical times Branch daily. cefpodoxime 2021-0 Yes [id number] 100mg Take 1 [facility] 100 mg 3-26 tablet by ity of tablet 00:00: mouth [place] [facility] Medical times Branch daily. cefpodoxime 2021-0 Yes [id number] 100mg Take 1 [facility] 100 mg 3-26 tablet by ity of tablet 00:00: mouth [place] (two) Medical times Branch daily. cefpodoxime 2021-0 Yes [id number] 100mg Take 1 [facility] 100 mg 3-26 tablet by ity of tablet 00:00: mouth [place] (two) Medical times Branch daily. cefpodoxime 2021-0 Yes [id number] 100mg Take 1 [facility] 100 mg 3-26 tablet by ity of tablet 00:00: mouth [place] (two) Medical times Branch daily. cefpodoxime 2021-0 Yes [id number] 100mg Take 1 [facility] 100 mg 3-26 tablet by ity of tablet 00:00: mouth [place] (two) Medical times Branch daily. cefpodoxime 2021-0 Yes [id number] 100mg Take 1 [facility] 100 mg 3-26 tablet by ity of tablet 00:00: mouth [place] (two) Medical times Branch daily. cefpodoxime 2021-0 Yes [id number] 100mg Take 1 [facility] 100 mg 3-26 tablet by ity of tablet 00:00: mouth [place] (two) Medical times Branch daily. cefpodoxime 2021-0 2023- No [id number] 100mg Take 1 [facility] 100 mg -11-11 tablet by ity of tablet 00:00: 00:00 mouth 2 [place] 00 :00 (two) Medical times Branch daily. cefpodoxime 2020- No [id number] 100mg Take 1 [facility] 100 mg 3-12 12- tablet by ity of tablet 00:00: 00:00 mouth 2 [place] 00 :00 (two) Medical times [place] daily for 7 days. XARELTO 15 0 Yes Univers mg tablet - ity of 00:00: [place] [facility] XARELTO 15 2020-0 Yes [facility] mg tablet 10-16 ity of 00:00: [place] [facility] XARELTO 15 2020-0 Yes [facility] mg tablet 10-16 ity of 00:00: [place] [facility] XARELTO 15 2020-0 Yes [facility] mg tablet 10-16 ity of 00:00: [place] [facility] XARELTO 15 2020-0 Yes [facility] mg tablet 10-16 ity of 00:00: [place] [facility] XARELTO 15 2020-0 Yes [facility] mg tablet 10-16 ity of 00:00: [place] [address] Medical Branch XARELTO 15 2020-0 Yes [facility] mg tablet - ity of 00:00: [place] [facility] XARELTO 15 2020-0 Yes [facility] mg tablet 10-16 ity of 00:00: [place] [address] Medical Branch XARELTO 15 2020-0 Yes [facility] mg tablet 10-16 ity of 00:00: [place] [facility] XARELTO 15 2020-0 Yes [facility] mg tablet - ity of 00:00: [place] [facility] XARELTO 15 2020-0 Yes [facility] mg tablet -28 ity of 00:00: [place] [address] Medical Branch XARELTO 15 2020-0 Yes [facility] mg tablet -28 ity of 00:00: [place] [facility] XARELTO 15 2020-0 Yes [facility] mg tablet - ity of 00:00: [place] [facility] XARELTO 15 2020-0 Yes [facility] mg tablet -28 ity of 00:00: [place] [address] Medical Branch XARELTO 15 2020-0 Yes [facility] mg tablet -28 ity of 00:00: [place] [facility] XARELTO 15 2020-0 Yes [facility] mg tablet 10-16 ity of 00:00: [place] 00 Medical Branch XARELTO 15 2020-0 Yes [facility] mg tablet 10-16 ity of 00:00: [place] 00 Medical Branch XARELTO 15 2020-0 Yes [facility] mg tablet 10-16 ity of 00:00: [place] 00 Medical Branch XARELTO 15 2020-0 Yes [facility] mg tablet 10-16 ity of 00:00: [place] 00 Medical Branch XARELTO 15 2020-0 Yes [facility] mg tablet 10-16 ity of 00:00: [place] 00 Medical Branch XARELTO 15 2020-0 Yes [facility] mg tablet 10-16 ity of 00:00: [place] 00 Medical Branch XARELTO 15 2020-0 Yes [facility] mg tablet 10-16 ity of 00:00: [place] [address] Medical Branch XARELTO 15 2020-0 Yes [facility] mg tablet 10-16 ity of 00:00: [place] [address] Medical Branch XARELTO 15 2020-0 2023- No Univer s mg tablet 10-16-12 ity of 00:00: 00:00 [place] 00 :00 Medical Branch omeprazole 2018- Yes 40mg Take 40 mg U nivers 40 mg 2-10 by mouth ity of capsule 00:11: daily. [address] Branch omeprazole 2018-09 Yes 40mg Take 40 mg U nivers 40 mg 2-10 by mouth ity of capsule 00:11: daily. [address] Branch varenicline 2018-09 Yes 1mg Take 1 mg U nivers (CHANTIX) 1 2-10 by mouth 2 it y of mg tablet 00:11: (two) [address] daily[address] Branch predniSONE 2018-09 Yes 20mg Take 20 mg U nivers 20 mg 2-10 by mouth ity of tablet 00:11: daily. [address] Branch omeprazole 2018-09 Yes 40mg Take 40 mg U nivers 40 mg 2-10 by mouth ity of capsule 00:11: daily. [address] Branch fluticasone 2018-09 Yes 1{puff} Inhale 1 Univers -umeclidin- 2-10 Puff ity of vilanter 00:11: daily. [place] (TRELE 42 Medical ELLIPTA) Branch 100-62.5-25 mcg DsDv aspirin 81 2018-09 Yes 81mg Take 81 mg U nivers mg EC 2-10 by mouth ity of tablet 00:11: daily. [address] varenicline 2018-09 Yes 1mg Take 1 mg U nivers (CHANTIX) 1 2-10 by mouth 2 it y of mg tablet 00:11: (two) [place] [address] times Medical daily. Branch predniSONE 2018-09 Yes 20mg Take 20 mg U nivers 20 mg 2-10 by mouth ity of tablet 00:11: daily. [address] omeprazole 2018-09 Yes 40mg Take 40 mg U nivers 40 mg 2-10 by mouth ity of capsule 00:11: daily. [address] fluticasone 2018-09 Yes 1{puff} Inhale 1 [facility] -umeclidin- 2-10 Puff ity of vilanter 00:11: daily. [place] ([address]) Branch 100-62.5-25 mcg DsDv aspirin 81 2018-09 Yes 81mg Take 81 mg U nivers mg EC 2-10 by mouth ity of tablet 00:11: daily. [address] varenicline 2018-09 Yes 1mg Take 1 mg U nivers (CHANTIX) 1 2-10 by mouth 2 it y of mg tablet 00:11: (two) [address] Medical daily. Branch predniSONE 2018-09 Yes 20mg Take 20 mg U nivers 20 mg 2-10 by mouth ity of tablet 00:11: daily. [address] omeprazole 2018-09 Yes 40mg Take 40 mg U nivers 40 mg 2-10 by mouth ity of capsule 00:11: daily. [address] fluticasone 2018-09 Yes 1{puff} Inhale 1 [facility] -umeclidin- 2-10 Puff ity of vilanter 00:11: daily. [place] ([address]) Branch 100-62.5-25 mcg DsDv aspirin 81 2018-09 Yes 81mg Take 81 mg U nivers mg EC 2-10 by mouth ity of tablet 00:11: daily. [address] varenicline 2018-09 Yes 1mg Take 1 mg U nivers (CHANTIX) 1 2-10 by mouth 2 it y of mg tablet 00:11: (two) [place] [address] times Medical daily. Branch predniSONE 2018-09 Yes 20mg Take 20 mg U nivers 20 mg 2-10 by mouth ity of tablet 00:11: daily. [address] omeprazole 2018-09 Yes 40mg Take 40 mg U nivers 40 mg 2-10 by mouth ity of capsule 00:11: daily. [address] fluticasone 2018-09 Yes 1{puff} Inhale 1 [facility] -umeclidin- 2-10 Puff ity of vilanter 00:11: daily. [address]) Branch 100-62.5-25 mcg DsDv aspirin 81 2018-09 Yes 81mg Take 81 mg U nivers mg EC 2-10 by mouth ity of tablet 00:11: daily. [address] varenicline 2018-09 Yes 1mg Take 1 mg U nivers (CHANTIX) 1 2-10 by mouth 2 it y of mg tablet 00:11: (two) [address] daily. Branch predniSONE 2018-09 Yes 20mg Take 20 mg U nivers 20 mg 2-10 by mouth ity of tablet 00:11: daily. [address] omeprazole 2018-09 Yes 40mg Take 40 mg U nivers 40 mg 2-10 by mouth ity of capsule 00:11: daily. [address] fluticasone 2018-09 Yes 1{puff} Inhale 1 [facility] -umeclidin- 2-10 Puff ity of vilanter 00:11: daily. [place] ([address]) Branch 100-62.5-25 mcg DsDv aspirin 81 2018-09 Yes 81mg Take 81 mg U nivers mg EC 2-10 by mouth ity of tablet 00:11: daily. [address] varenicline 2018-09 Yes 1mg Take 1 mg U nivers (CHANTIX) 1 2-10 by mouth 2 it y of mg tablet 00:11: (two) [place] [address] times [facility] daily. Branch predniSONE 2018-09 Yes 20mg Take 20 mg U nivers 20 mg 2-10 by mouth ity of tablet 00:11: daily. [address] omeprazole 2018-09 Yes 40mg Take 40 mg U nivers 40 mg 2-10 by mouth ity of capsule 00:11: daily. [address] fluticasone 2018-09 Yes 1{puff} Inhale 1 [facility] -umeclidin- 2-10 Puff ity of vilanter 00:11: daily. [place] (TRELE 42 Medical [facility]) Branch 100-62.5-25 mcg DsDv aspirin 81 2018- Yes 81mg Take 81 mg U nivers mg EC 2-10 by mouth ity of tablet 00:11: daily. [address] omeprazole 2018- Yes 40mg Take 40 mg U nivers 40 mg 2-10 by mouth ity of capsule 00:11: daily. [address] omeprazole 2018- Yes 40mg Take 40 mg U nivers 40 mg 2-10 by mouth ity of capsule 00:11: daily. [address] omeprazole 2018- Yes 40mg Take 40 mg U nivers 40 mg 2-10 by mouth ity of capsule 00:11: daily. [address] omeprazole 2018- Yes 40mg Take 40 mg U nivers 40 mg 2-10 by mouth ity of capsule 00:11: daily. [address] omeprazole 2018- Yes 40mg Take 40 mg U nivers 40 mg 2-10 by mouth ity of capsule 00:11: daily. [address] omeprazole 2018- Yes 40mg Take 40 mg U nivers 40 mg 2-10 by mouth ity of capsule 00:11: daily. [address] omeprazole 2018- Yes 40mg Take 40 mg U nivers 40 mg 2-10 by mouth ity of capsule 00:11: daily. [address] omeprazole 2018- Yes 40mg Take 40 mg U nivers 40 mg 2-10 by mouth ity of capsule 00:11: daily. [address] omeprazole 2018- Yes 40mg Take 40 mg U nivers 40 mg 2-10 by mouth ity of capsule 00:11: daily. [address] omeprazole 2018- Yes 40mg Take 40 mg U nivers 40 mg 2-10 by mouth ity of capsule 00:11: daily. [address] omeprazole 2018- Yes 40mg Take 40 mg U nivers 40 mg 2-10 by mouth ity of capsule 00:11: daily. [address] omeprazole 2018- Yes 40mg Take 40 mg U nivers 40 mg 2-10 by mouth ity of capsule 00:11: daily. [address] omeprazole 2018- Yes 40mg Take 40 mg U nivers 40 mg 2-10 by mouth ity of capsule 00:11: daily. [place] 42 Medical Branch KCL 20 mEq 2018-09 Yes [id number] 40meq Take 2 [facility] tablet 2-09 tablets by ity of 00:00: mouth [place] 00 daily. Medical Branch KCL 20 mEq 2018-09 Yes [id number] 40meq Take 2 [facility] tablet 2-09 tablets by ity of 00:00: mouth [place] 00 daily. Medical Branch atorvastati 2018-09 Yes [id number] 20mg Take 1 [facility] n 20 mg 2-09 tablet by ity of tablet 00:00: mouth at [place] 00 bedtime. Medical Branch metoprolol 2018-09 Yes [id number] 50mg Take 1 [facility] succinate 2-09 tablet by ity o f XL 50 mg 24 00:00: mouth 2 [place] hr tablet 00 (two) Medical times Branch daily. furosemide 2018-09 Yes [id number] 40mg Take 1 [facility] 40 mg 2-09 tablet by ity of tablet 00:00: mouth [place] 00 every Medical morning Branch and evening. KCL 20 mEq 2018-09 Yes [id number] 40meq Take 2 [facility] tablet 2-09 tablets by ity of 00:00: mouth [place] 00 daily. Medical Branch atorvastati 2018-09 Yes [id number] 20mg Take 1 [facility] n 20 mg 2-09 tablet by ity of tablet 00:00: mouth at [place] 00 bedtime. Medical Branch metoprolol 2018-09 Yes [id number] 50mg Take 1 [facility] succinate 2-09 tablet by ity o f XL 50 mg 24 00:00: mouth 2 [place] hr tablet 00 (two) Medical times Branch daily. furosemide 2018-09 Yes [id number] 40mg Take 1 [facility] 40 mg 2-09 tablet by ity of tablet 00:00: mouth [place] 00 every Medical morning Branch and evening. KCL 20 mEq 2018-09 Yes [id number] 40meq Take 2 [facility] tablet 2-09 tablets by ity of 00:00: mouth [place] 00 daily. Medical Branch atorvastati 2018-09 Yes [id number] 20mg Take 1 [facility] n 20 mg 2-09 tablet by ity of tablet 00:00: mouth at [place] 00 bedtime. Medical Branch metoprolol 2018-09 Yes [id number] 50mg Take 1 [facility] succinate 2-09 tablet by ity o f XL 50 mg 24 00:00: mouth 2 [place] hr tablet 00 (two) Medical times Branch daily. furosemide 2018-09 Yes [id number] 40mg Take 1 [facility] 40 mg 2-09 tablet by ity of tablet 00:00: mouth [place] 00 every Medical morning Branch and evening. KCL 20 mEq 2018-09 Yes [id number] 40meq Take 2 [facility] tablet 2-09 tablets by ity of 00:00: mouth [place] 00 daily. Medical Branch atorvastati 2018-09 Yes [id number] 20mg Take 1 [facility] n 20 mg 2-09 tablet by ity of tablet 00:00: mouth at [place] 00 bedtime. Medical Branch metoprolol 2018-09 Yes [id number] 50mg Take 1 [facility] succinate 2-09 tablet by ity o f XL 50 mg 24 00:00: mouth 2 [place] hr tablet 00 (two) Medical times Branch daily. furosemide 2018-09 Yes [id number] 40mg Take 1 [facility] 40 mg 2-09 tablet by ity of tablet 00:00: mouth [place] 00 every Medical morning Branch and evening. KCL 20 mEq 2018-09 Yes [id number] 40meq Take 2 [facility] tablet 2-09 tablets by ity of 00:00: mouth [place] 00 daily. Medical Branch atorvastati 2018-09 Yes [id number] 20mg Take 1 [facility] n 20 mg 2-09 tablet by ity of tablet 00:00: mouth at [place] 00 bedtime. Medical Branch metoprolol 2018-09 Yes [id number] 50mg Take 1 [facility] succinate 2-09 tablet by ity o f XL 50 mg 24 00:00: mouth 2 [place] hr tablet 00 (two) Medical times Branch daily. furosemide 2018-09 Yes [id number] 40mg Take 1 [facility] 40 mg 2-09 tablet by ity of tablet 00:00: mouth [place] 00 every Medical morning Branch and evening. KCL 20 mEq 2018-09 Yes [id number] 40meq Take 2 [facility] tablet 2-09 tablets by ity of 00:00: mouth [place] 00 daily. Medical Branch atorvastati 2018-09 Yes [id number] 20mg Take 1 [facility] n 20 mg 2-09 tablet by ity of tablet 00:00: mouth at [place] 00 bedtime. Medical Branch metoprolol 2018-09 Yes [id number] 50mg Take 1 [facility] succinate 2-09 tablet by ity o f XL 50 mg 24 00:00: mouth 2 [place] hr tablet 00 (two) Medical times Branch daily. furosemide 2018-09 Yes [id number] 40mg Take 1 [facility] 40 mg 2-09 tablet by ity of tablet 00:00: mouth [place] 00 every Medical morning Branch and evening. KCL 20 mEq 2018-09 Yes [id number] 40meq Take 2 [facility] tablet 2-09 tablets by ity of 00:00: mouth [place] 00 daily. Medical Branch KCL 20 mEq 2018-09 Yes [id number] 40meq Take 2 [facility] tablet 2-09 tablets by ity of 00:00: mouth [place] 00 daily. Medical Branch KCL 20 mEq 2018-09 Yes [id number] 40meq Take 2 [facility] tablet 2-09 tablets by ity of 00:00: mouth [place] 00 daily. Medical Branch KCL 20 mEq 2018-09 Yes [id number] 40meq Take 2 [facility] tablet 2-09 tablets by ity of 00:00: mouth [place] 00 daily. Medical Branch KCL 20 mEq 2018-09 Yes [id number] 40meq Take 2 [facility] tablet 2-09 tablets by ity of 00:00: mouth [place] 00 daily. Medical Branch KCL 20 mEq 2018-09 Yes [id number] 40meq Take 2 [facility] tablet 2-09 tablets by ity of 00:00: mouth [place] 00 daily. Medical Branch KCL 20 mEq 2018-09 Yes [id number] 40meq Take 2 [facility] tablet 2-09 tablets by ity of 00:00: mouth [place] 00 daily. Medical Branch KCL 20 mEq 2018-09 Yes [id number] 40meq Take 2 [facility] tablet 2-09 tablets by ity of 00:00: mouth [place] 00 daily. Medical Branch KCL 20 mEq 2018-09 Yes [id number] 40meq Take 2 [facility] tablet 2-09 tablets by ity of 00:00: mouth [place] 00 daily. Medical Branch KCL 20 mEq 2018-09 Yes [id number] 40meq Take 2 [facility] tablet 2-09 tablets by ity of 00:00: mouth [place] 00 daily. Medical Branch KCL 20 mEq 2018-09 Yes [id number] 40meq Take 2 [facility] tablet 2-09 tablets by ity of 00:00: mouth [place] 00 daily. Medical Branch KCL 20 mEq 2018-09 Yes [id number] 40meq Take 2 [facility] tablet 2-09 tablets by ity of 00:00: mouth [place] 00 daily. Medical Branch KCL 20 mEq 2018-09 Yes [id number] 40meq Take 2 [facility] tablet 2-09 tablets by ity of 00:00: mouth [place] 00 daily. Medical Branch KCL 20 mEq 2018-09 Yes [id number] 40meq Take 2 [facility] tablet 2-09 tablets by ity of 00:00: mouth [place] 00 daily. Medical Branch KCL 20 mEq 2018-09 Yes [id number] 40meq Take 2 [facility] tablet 2-09 tablets by ity of 00:00: mouth [place] 00 daily. Medical Branch KCL 20 mEq 2018-09 Yes [id number] 40meq Take 2 [facility] tablet 2-09 tablets by ity of 00:00: mouth [place] 00 daily. Medical Branch KCL 20 mEq 2018-09 Yes [id number] 40meq Take 2 [facility] tablet 2-09 tablets by ity of 00:00: mouth [place] 00 daily. Medical Branch KCL 20 mEq 2018-09 Yes [id number] 40meq Take 2 [facility] tablet 2-09 tablets by ity of 00:00: mouth [place] 00 daily. Medical Branch KCL 20 mEq 2018-09 Yes [id number] 40meq Take 2 [facility] tablet 2-09 tablets by ity of 00:00: mouth [place] 00 daily. Medical Branch KCL 20 mEq 2018-09- No [id number] 40meq Take 2 [facility] tablet 2-09 -12 tablets by ity of 00:00: 00:00 mouth [place] 00 :00 daily. Medical Branch atorvastati 2018-09- No [id number] 20mg Take 1 Univers n 20 mg 10-28 tablet by ity of tablet 00:00: 00:00 mouth at [place] 00 :00 bedtime. Medical Branch metoprolol 2018-09- No [id number] 50mg Take 1 [facility] succinate 10-28- tablet by ity of XL 50 mg 24 00:00: 00:00 mouth 2 [place] hr tablet 00 :00 (two) Medical times Branch daily. furosemide 2018-09- No [id number] 40mg Take 1 [facility] 40 mg 10-28 tablet by ity of tablet 00:00: 00:00 mouth [place] 00 :00 every Medical morning Branch and evening. ipratropium Yes 3mL 3 mL, Unive rs -albuterol 8-16 Inhalation ity of (DUONEB) 13:00: , QID, [place] 0.5 mg-3 00 First dose Medic al mg(2.5 mg on Tue Branch base)/3 mL 05/04/19 at nebulizer 0800, solution 3 Until mL Discontinu ed, Routine ibuprofen Yes [id number] 600mg Take 1 U nivers 600 mg 5-31 tablet by ity of tablet 00:00: mouth [place] 00 every 8 Medical (eight) Branch hours as needed (PAIN). ibuprofen Yes [id number] 600mg Take 1 U nivers 600 mg 5-31 tablet by ity of tablet 00:00: mouth [place] 00 every 8 Medical (eight) Branch hours as needed (pain). ibuprofen 2019- No [id number] 600mg Take 1 [facility] 600 mg 5-31 08-15 tablet by ity of tablet 00:00: 00:00 mouth [place] 00 :00 every 8 Medical (eight) Branch hours as needed (PAIN). ibuprofen 2018- No [id number] 600mg Take 1 [facility] 600 mg 5-31 08-15 tablet by ity of tablet 00:00: 00:00 mouth [place] 00 :00 every 8 Medical (eight) Branch hours as needed (pain). magnesium Yes 400mg Take 1 Tab U nivers oxide 2-23 by mouth 3 ity of (MAG-OX 00:00: (three) [place] 400) 400 mg 00 times Medical tablet daily. Branch enalapril Yes [id number] 2.5mg Take 1 Tab Univers (VASOTEC) 2-23 [...] s tablet 00 Medical Branch furosemide Yes [id number] 40mg Take 1 Tab Univers (LASIX) 40 2-23 by mouth 2 ity of mg tablet 00:00: (two) [place] 00 times Medical daily. Branch metoprolol Yes 100mg Take 1 Tab Univers succinate 2-23 by mouth ity of XL (TOPROL 00:00: daily. [place] XL) 100 mg 00 Medical 24 hr Branch tablet magnesium 2018- No 400mg Take 1 Tab Univers oxide -11 05-15 by mouth 3 ity of (MAG-OX 00:00: 00:00 (three) [place] 400) 400 mg 00 :00 times Medical tablet daily. Branch enalapril 2018- No [id number] 2.5mg Take 1 Tab Univers (VASOTEC) -11 05-15 by mouth 2 ity of 2.5 mg 00:00: 00:00 (two) [place] tablet 00 :00 times Medical daily. Branch pantoprazol 2018- No 40mg Take 1 Tab Univers e 11-11-15 by mouth ity of (PROTONIX) 00:00: 00:00 daily. [place] 40 mg EC 00 :00 Medical tablet Branch KCL 2018- No 20meq Take 1 Tab Unive rs (KLOR-CON 11-11-15 by mouth ity o f M20) 20 mEq 00:00: 00:00 daily. [place] tablet 00 :00 Medical Branch furosemide 2019- No [id number] 40mg Take 1 Tab Univers (LASIX) 40 11-11-15 by mouth 2 it y of mg tablet 00:00: 00:00 (two) [place] 00 :00 times Medical daily. Branch metoprolol 2018- No 100mg Take 1 Tab Univers succinate 11-11-15 by mouth ity o f XL (TOPROL 00:00: 00:00 daily. [place] XL) 100 mg 00 :00 Medical 24 hr Branch tablet aspirin 81 2013-09 Yes 81mg Take 1 Tab U nivers mg chewable 2-17 by mouth ity of tablet 00:00: daily. [place] 00 Medical Branch ipratropium 2013-09 Yes .5mg [...] by mouth ity of tablet 00:00: daily. [place] Medical Branch ipratropium 2013-09 Yes .5mg Inhale [...] by mouth ity of tablet 00:00: daily. [place] [facility] Branch ipratropium 2013-09 Yes .5mg Inhale [...] by mouth ity of tablet 00:00: daily. [place] [facility] Branch ipratropium 2013-09 Yes .5mg Inhale [...] by mouth ity of tablet 00:00: daily. [place] [facility] Branch ipratropium 2013-09 Yes .5mg Inhale [...] by mouth ity of tablet 00:00: daily. [place] Medical Branch ipratropium 2013-09 Yes .5mg Inhale 2.5 Univers (ATROVENT) 2-17 mL 4 ity of 0.02 % 00:00: (four) [place] nebulizer 00 times Medical solution daily. Branch levalbutero 2013-09 Yes .31mg Inhale Uni vers l (XOPENEX) 2-17 0.31 mg 3 ity of 0.31 mg/3 00:00: (three) [place] mL 00 times Medical nebulizer daily. Branch solution aspirin 81 2013-09- No 81mg Take 1 Tab Univers mg chewable 2-17 03-12 by mouth ity of tablet 00:00: 00:00 daily. [place] 00 : Medical Branch ipratropium 2013-09- No .5mg Inhale 2.5 Univers (ATROVENT) 2-17 03-12 mL 4 ity of 0.02 % 00:00: 00:00 (four) [place] nebulizer 00 :00 times Medical solution daily. Branch levalbutero 2013-09- No .31mg Inhale Un igor l (XOPENEX) 2-17 03-12 0.31 mg 3 it y of 0.31 mg/3 00:00: 00:00 (three) [place] mL 00 :00 times Medical nebulizer daily. Branch solution Immunizations Ordered Filled Immunization Date Status Comments [facility] e Immunization Name Name Pneumococcal 20 2022-12-12 Completed Universit y of Conjugate, PCV20 00:00:00 [facility] dical (Prevnar 20) Branch Pneumococcal 20 2022-12-12 Completed Universit y of Conjugate, PCV20 00:00:00 [facility] dical (Prevnar 20) Branch Pneumococcal 20 2022-12-12 Completed Universit y of Conjugate, PCV20 00:00:00 [facility] dical (Prevnar 20) Branch Pneumococcal 20 2022-12-12 Completed Universit y of Conjugate, PCV20 00:00:00 [facility] dical (Prevnar 20) Branch Pneumococcal 20 2022-12-12 Completed Universit y of Conjugate, PCV20 00:00:00 [facility] dical (Prevnar 20) Branch Pneumococcal 20 2022-12-12 Completed Universit y of Conjugate, PCV20 00:00:00 [facility] dical (Prevnar 20) Branch Pneumococcal 20 2022-12-12 Completed Universit y of Conjugate, PCV20 00:00:00 [facility] dical (Prevnar 20) Branch Pneumococcal 20 2022-12-12 Completed Universit y of Conjugate, PCV20 00:00:00 [facility] dical (Prevnar 20) Branch Pneumococcal 20 2022-12-12 Completed Universit y of Conjugate, PCV20 00:00:00 [facility] dical (Prevnar 20) Branch Pneumococcal 20 2022-12-12 Completed Universit y of Conjugate, PCV20 00:00:00 [facility] dical (Prevnar 20) Branch Pneumococcal 20 2022-12-12 Completed Universit y of Conjugate, PCV20 00:00:00 [facility] dical (Prevnar 20) Branch Pneumococcal 20 2022-12-12 Completed Universit y of Conjugate, PCV20 00:00:00 [facility] dical (Prevnar 20) Branch Pneumococcal 20 2022-12-12 Completed Universit y of Conjugate, PCV20 00:00:00 [facility] dical (Prevnar 20) Branch Pneumococcal 20 2022-12-12 Completed Universit y of Conjugate, PCV20 00:00:00 [place] [facility] dical (Prevnar 20) Branch Pneumococcal 20 2022-12-12 Completed Universit y of Conjugate, PCV20 00:00:00 [place] Me dical (Prevnar 20) Branch Pneumococcal 20 2022-12-12 Completed Universit y of Conjugate, PCV20 00:00:00 [place] Me dical (Prevnar 20) Branch Pneumococcal 20 2022-12-12 Completed Universit y of Conjugate, PCV20 00:00:00 [place] Me dical (Prevnar 20) Branch Pneumococcal 20 2022-12-12 Completed Universit y of Conjugate, PCV20 00:00:00 [place] Me dical (Prevnar 20) Branch Pneumococcal 20 2022-12-12 Completed Universit y of Conjugate, PCV20 00:00:00 [place] Me dical (Prevnar 20) Branch Pneumococcal 20 2022-12-12 Completed Universit y of Conjugate, PCV20 00:00:00 [place] Me dical (Prevnar 20) Branch Pneumococcal 20 2022-12-12 Completed Universit y of Conjugate, PCV20 00:00:00 [place] Me dical (Prevnar 20) Branch Pneumococcal 20 2022-12-12 Completed Universit y of Conjugate, PCV20 00:00:00 [place] Me dical (Prevnar 20) Branch Pneumococcal 20 2022-12-12 Completed Universit y of Conjugate, PCV20 00:00:00 [place] Me dical (Prevnar 20) Branch Pneumococcal 20 2022-12-12 Completed Universit y of Conjugate, PCV20 00:00:00 [place] Me dical (Prevnar 20) Branch Pneumococcal 20 2022-12-12 Completed Universit y of Conjugate, PCV20 00:00:00 [place] Me dical (Prevnar 20) Branch Pneumococcal 20 2022-12-12 Completed Universit y of Conjugate, PCV20 00:00:00 [place] Me dical (Prevnar 20) Branch Pneumococcal 20 2022-12-12 Completed Universit y of Conjugate, PCV20 00:00:00 [place] Me dical (Prevnar 20) Branch Pneumococcal 20 2022-12-12 Completed Universit y of Conjugate, PCV20 00:00:00 [place] [facility] dical (Prevnar 20) Branch Pneumococcal 20 2022-12-12 Completed Universit y of Conjugate, PCV20 00:00:00 [place] [facility] dical (Prevnar 20) Branch Pneumococcal 20 2022-12-12 Completed Universit y of Conjugate, PCV20 00:00:00 [facility] dical (Prevnar 20) Branch Pneumococcal 20 2022-12-12 Completed Universit y of Conjugate, PCV20 00:00:00 [facility] dical (Prevnar 20) Branch Pneumococcal 20 2022-12-12 Completed Universit y of Conjugate, PCV20 00:00:00 [facility] dical (Prevnar 20) Branch Pneumococcal 20 2022-12-12 Completed Universit y of Conjugate, PCV20 00:00:00 [facility] dical (Prevnar 20) Branch SARS-COV-2 COVID-19 2020-11-23 Completed Unive rsity of MODERNA 12+ YRS 00:00:00 [place] [facility] VACCINE Branch SARS-COV-2 COVID-19 2020-11-23 Completed [facility] VACCINE 00:00:00 [place] [facility] SARS-COV-2 COVID-19 2020-11-23 Completed [facility]ERNA 12+ YRS 00:00:00 [place] [facility] SARS-COV-2 COVID-19 2020-11-23 Completed [facility]ERNA 12+ YRS 00:00:00 [place] [facility] SARS-COV-2 COVID-19 2020-11-23 Completed [facility] MODERNA 12+ YRS 00:00:00 [place] [facility] SARS-COV-2 COVID-19 2020-11-23 Completed [facility] MODERNA 12+ YRS 00:00:00 [place] [facility] SARS-COV-2 COVID-19 2020-11-23 Completed [facility] MODERNA 12+ YRS 00:00:00 [place] [facility] SARS-COV-2 COVID-19 2020-11-23 Completed [facility] VACCINE 00:00:00 [place] [facility] SARS-COV-2 COVID-19 2020-11-23 Completed [facility] MODERNA 12+ YRS 00:00:00 [place] [facility] SARS-COV-2 COVID-19 2020-11-23 Completed [facility] MODERNA 12+ YRS 00:00:00 [place] [facility] SARS-COV-2 COVID-19 2020-11-23 Completed [facility] MODERNA 12+ YRS 00:00:00 [place] [facility] SARS-COV-2 COVID-19 2020-11-23 Completed [facility] MODERNA 12+ YRS 00:00:00 [place] [facility] SARS-COV-2 COVID-19 2020-11-23 Completed [facility] MODERNA 12+ YRS 00:00:00 [place] [facility] SARS-COV-2 COVID-19 2020-11-23 Completed [facility] MODERNA 12+ YRS 00:00:00 [place] [facility] SARS-COV-2 COVID-19 2020-11-23 Completed [facility] VACCINE 00:00:00 [place] [facility] SARS-COV-2 COVID-19 2020-11-23 Completed [facility] MODERNA 12+ YRS 00:00:00 [place] [facility] SARS-COV-2 COVID-19 2020-11-23 Completed [facility] MODERNA 12+ YRS 00:00:00 [place] [facility] SARS-COV-2 COVID-19 2020-11-23 Completed [facility] MODERNA 12+ YRS 00:00:00 [place] [facility] SARS-COV-2 COVID-19 2020-11-23 Completed [facility] MODERNA 12+ YRS 00:00:00 [place] [facility] SARS-COV-2 COVID-19 2020-11-23 Completed [facility] MODERNA 12+ YRS 00:00:00 [place] [facility] SARS-COV-2 COVID-19 2020-11-23 Completed [facility] MODERNA 12+ YRS 00:00:00 [place] [facility] SARS-COV-2 COVID-19 2020-11-23 Completed [facility] MODERNA 12+ YRS 00:00:00 [place] [facility] SARS-COV-2 COVID-19 2020-11-23 Completed [facility] MODERNA 12+ YRS 00:00:00 [place] [facility] SARS-COV-2 COVID-19 2020-11-23 Completed [facility] MODERNA 12+ YRS 00:00:00 [place] [facility] SARS-COV-2 COVID-19 2020-11-23 Completed [facility] MODERNA 12+ YRS 00:00:00 [place] [facility] SARS-COV-2 COVID-19 2020-11-23 Completed [facility] MODERNA 12+ YRS 00:00:00 [place] [facility] SARS-COV-2 COVID-19 2020-11-23 Completed [facility] MODERNA 12+ YRS 00:00:00 [place] [facility] SARS-COV-2 COVID-19 2020-11-23 Completed [facility] MODERNA 12+ YRS 00:00:00 [place] [facility] SARS-COV-2 COVID-19 2020-11-23 Completed [facility] MODERNA 12+ YRS 00:00:00 [place] [facility] SARS-COV-2 COVID-19 2020-11-23 Completed [facility] MODERNA 12+ YRS 00:00:00 [place] [facility] SARS-COV-2 COVID-19 2020-11-23 Completed [facility] MODERNA 12+ YRS 00:00:00 [place] [facility] SARS-COV-2 COVID-19 2020-11-23 Completed [facility] MODERNA 12+ YRS 00:00:00 [place] [facility] SARS-COV-2 COVID-19 2020-11-23 Completed [facility] MODERNA 12+ YRS 00:00:00 [place] [facility] SARS-COV-2 COVID-19 2020-11-23 Completed [facility] MODERNA 12+ YRS 00:00:00 [place] [facility] SARS-COV-2 COVID-19 2020-11-23 Completed [facility]ERNA VACCINE 00:00:00 [place] [facility] SARS-COV-2 COVID-19 2020-11-23 Completed [facility] MODERNA 12+ YRS 00:00:00 [place] [facility]ACC[facility] SARS-COV-2 COVID-19 2020-11-23 Completed [facility] MODERNA 12+ YRS 00:00:00 [place] [facility] SARS-COV-2 COVID-19 2020-11-23 Completed [facility] MODERNA 12+ YRS 00:00:00 [place] [facility]ACC[facility] SARS-COV-2 COVID-19 2020-11-23 Completed [facility] MODERNA 12+ YRS 00:00:00 [place] [facility] SARS-COV-2 COVID-19 2020-11-23 Completed [facility]ERNA 12+ YRS 00:00:00 [place] [facility] SARS-COV-2 COVID-19 2020-11-23 Completed [facility]ERNA VACCINE 00:00:00 [place] [facility] SARS-COV-2 COVID-19 2020-11-23 Completed [facility]ERNA 12+ YRS 00:00:00 [place] [facility]ACC[facility] SARS-COV-2 COVID-19 2020-11-23 Completed [facility]ERNA 12+ YRS 00:00:00 [place] [facility]ACCINE [facility] SARS-COV-2 COVID-19 2020-11-23 Completed [facility] VACCINE 00:00:00 [place] [facility] SARS-COV-2 COVID-19 2020-11-23 Completed [facility] VACCINE 00:00:00 [place] [facility] ical Branch SARS-COV-2 COVID-19 2020-11-23 Completed [facility]ER[facility] VACCINE 00:00:00 [facility] ical Branch SARS-COV-2 COVID-19 2020-11-23 Completed [facility] VACCINE 00:00:00 [facility] ical Branch SARS-COV-2 COVID-19 2020-11-23 Completed [facility] VACCINE 00:00:00 [place] [facility] SARS-COV-2 COVID-19 2020-11-23 Completed [facility] VACCINE 00:00:00 [facility] ical Branch SARS-COV-2 COVID-19 2020-11-23 Completed [facility] VACCINE 00:00:00 [place] [facility] ical Branch SARS-COV-2 COVID-19 2020-11-23 Completed [facility] VACCINE 00:00:00 [facility] ical Branch SARS-COV-2 COVID-19 2020-11-23 Completed Unive [...] COVID-19 2020-11-23 Completed [facility] of [facility]ERNA 12+ YRS 00:00:00 [place] [facility]ACCINE [facility] SARS-COV-2 COVID-19 2020-11-23 Completed [facility] of [facility]ERNA 12+ YRS 00:00:00 [place] [facility]ACCINE [facility] SARS-COV-2 COVID-19 2020-11-23 Completed [facility]ERNA 12+ YRS 00:00:00 [place] [facility]ACCINE [facility] SARS-COV-2 COVID-19 2020-11-23 Completed [facility] MODERNA 12+ YRS 00:00:00 [place] [facility] SARS-COV-2 COVID-19 2020-11-23 Completed [facility] VACCINE 00:00:00 [place] [facility] SARS-COV-2 COVID-19 2020-11-23 Completed [facility] MODERNA 12+ YRS 00:00:00 [place] [facility] SARS-COV-2 COVID-19 2020-11-23 Completed [facility] MODERNA 12+ YRS 00:00:00 [place] [facility] SARS-COV-2 COVID-19 2020-11-23 Completed [facility]ERNA 12+ YRS 00:00:00 [place] [facility] SARS-COV-2 COVID-19 2020-10-26 Completed [facility]NA VACCINE 00:00:00 [place] [facility] SARS-COV-2 COVID-19 2020-10-26 Completed [facility]ERNA 12+ YRS 00:00:00 [place] [facility]ACCINE [facility] SARS-COV-2 COVID-19 2020-10-26 Completed [facility] of MODERNA 12+ YRS 00:00:00 [place] [facility]ACCINE [facility] SARS-COV-2 COVID-19 2020-10-26 Completed [facility] MODERNA 12+ YRS 00:00:00 [place] [facility]ACCINE [facility] SARS-COV-2 COVID-19 2020-10-26 Completed [facility] of MODERNA 12+ YRS 00:00:00 [place] [facility]ACCINE [facility] SARS-COV-2 COVID-19 2020-10-26 Completed [facility] of MODERNA 12+ YRS 00:00:00 [place] [facility]ACCINE [facility] SARS-COV-2 COVID-19 2020-10-26 Completed [facility] MODERNA VACCINE 00:00:00 [place] [facility] SARS-COV-2 COVID-19 2020-10-26 Completed [facility] of MODERNA 12+ YRS 00:00:00 [place] [facility]ACCINE [facility] SARS-COV-2 COVID-19 2020-10-26 Completed [facility] of MODERNA 12+ YRS 00:00:00 [place] [facility] VACCINE [facility] SARS-COV-2 COVID-19 2020-10-26 Completed [facility] of MODERNA 12+ YRS 00:00:00 [place] [facility] VACCINE [facility] SARS-COV-2 COVID-19 2020-10-26 Completed [facility] of MODERNA 12+ YRS 00:00:00 [place] [facility] VACCINE [facility] SARS-COV-2 COVID-19 2020-10-26 Completed [facility] MODERNA 12+ YRS 00:00:00 [place] [facility] VACCINE [facility] SARS-COV-2 COVID-19 2020-10-26 Completed [facility] of MODERNA 12+ YRS 00:00:00 [place] [facility]ACCINE [facility] SARS-COV-2 COVID-19 2020-10-26 Completed [facility] of MODERNA 12+ YRS 00:00:00 [place] [facility]ACCINE [facility] SARS-COV-2 COVID-19 2020-10-26 Completed [facility] MODERNA VACCINE 00:00:00 [place] [facility] SARS-COV-2 COVID-19 2020-10-26 Completed [facility] of MODERNA 12+ YRS 00:00:00 [place] [facility]ACCINE [facility] SARS-COV-2 COVID-19 2020-10-26 Completed [facility] of MODERNA 12+ YRS 00:00:00 [place] [facility]ACCINE [facility] SARS-COV-2 COVID-19 2020-10-26 Completed [facility] of MODERNA 12+ YRS 00:00:00 [place] [facility] VACCINE [facility] SARS-COV-2 COVID-19 2020-10-26 Completed [facility] of MODERNA 12+ YRS 00:00:00 [place] [facility]ACCINE [facility] SARS-COV-2 COVID-19 2020-10-26 Completed [facility] of MODERNA 12+ YRS 00:00:00 [place] [facility]ACCINE [facility] SARS-COV-2 COVID-19 2020-10-26 Completed [facility] of MODERNA 12+ YRS 00:00:00 [place] [facility]ACCINE [facility] SARS-COV-2 COVID-19 2020-10-26 Completed [facility] of MODERNA 12+ YRS 00:00:00 [place] [facility]ACCINE [facility] SARS-COV-2 COVID-19 2020-10-26 Completed [facility] of MODERNA 12+ YRS 00:00:00 [place] [facility] VACCINE [facility] SARS-COV-2 COVID-19 2020-10-26 Completed [facility] of MODERNA 12+ YRS 00:00:00 [place] [facility] VACCINE [facility] SARS-COV-2 COVID-19 2020-10-26 Completed [facility] of MODERNA 12+ YRS 00:00:00 [place] [facility] VACCINE [facility] SARS-COV-2 COVID-19 2020-10-26 Completed [facility] of MODERNA 12+ YRS 00:00:00 [place] [facility] VACCINE [facility] SARS-COV-2 COVID-19 2020-10-26 Completed [facility] of MODERNA 12+ YRS 00:00:00 [place] [facility] VACCINE [facility] SARS-COV-2 COVID-19 2020-10-26 Completed [facility] of MODERNA 12+ YRS 00:00:00 [place] [facility] VACCINE [facility] SARS-COV-2 COVID-19 2020-10-26 Completed [facility] of MODERNA 12+ YRS 00:00:00 [place] [facility] VACCINE [facility] SARS-COV-2 COVID-19 2020-10-26 Completed [facility] of MODERNA 12+ YRS 00:00:00 [place] [facility] VACCINE [facility] SARS-COV-2 COVID-19 2020-10-26 Completed [facility] of MODERNA 12+ YRS 00:00:00 [place] [facility] VACCINE [facility] SARS-COV-2 COVID-19 2020-10-26 Completed [facility] of MODERNA 12+ YRS 00:00:00 [place] [facility] VACCINE [facility] SARS-COV-2 COVID-19 2020-10-26 Completed [facility] of MODERNA 12+ YRS 00:00:00 [place] [facility] VACCINE [facility] SARS-COV-2 COVID-19 2020-10-26 Completed [facility] of MODERNA 12+ YRS 00:00:00 [place] [facility] VACCINE [facility] SARS-COV-2 COVID-19 2020-10-26 Completed [facility] MODERNA VACCINE 00:00:00 [place] [facility] SARS-COV-2 COVID-19 2020-10-26 Completed [facility] of MODERNA 12+ YRS 00:00:00 [place] [facility] VACCINE [facility] SARS-COV-2 COVID-19 2020-10-26 Completed [facility] of MODERNA 12+ YRS 00:00:00 [place] [facility] VACCINE [facility] SARS-COV-2 COVID-19 2020-10-26 Completed [facility] of MODERNA 12+ YRS 00:00:00 [place] [facility] VACCINE [facility] SARS-COV-2 COVID-19 2020-10-26 Completed [facility] of MODERNA 12+ YRS 00:00:00 [place] [facility] VACCINE [facility] SARS-COV-2 COVID-19 2020-10-26 Completed [facility] of MODERNA 12+ YRS 00:00:00 [place] [facility] VACCINE [facility] SARS-COV-2 COVID-19 2020-10-26 Completed [facility] MODERNA VACCINE 00:00:00 [place] [facility] SARS-COV-2 COVID-19 2020-10-26 Completed [facility] of MODERNA 12+ YRS 00:00:00 [place] [facility] VACCINE [facility] SARS-COV-2 COVID-19 2020-10-26 Completed [facility] of MODERNA 12+ YRS 00:00:00 [place] [facility] VACCINE [facility] SARS-COV-2 COVID-19 2020-10-26 Completed Unive rsity [...] COVID-19 2020-10-26 Completed [facility] of MODERNA 12+ YRS 00:00:00 [place] [facility] VACCINE [facility] SARS-COV-2 COVID-19 2020-10-26 Completed [facility] of MODERNA 12+ YRS 00:00:00 [place] [facility] VACCINE [facility] SARS-COV-2 COVID-19 2020-10-26 Completed [facility] of MODERNA 12+ YRS 00:00:00 [place] [facility] VACCINE [facility] SARS-COV-2 COVID-19 2020-10-26 Completed [facility] of MODERNA 12+ YRS 00:00:00 [place] [facility] VACCINE [facility] SARS-COV-2 COVID-19 2020-10-26 Completed [facility] of MODERNA VACCINE 00:00:00 [place] [facility] SARS-COV-2 COVID-19 2020-10-26 Completed [facility] of MODERNA 12+ YRS 00:00:00 [place] [facility] VACCINE [facility] SARS-COV-2 COVID-19 2020-10-26 Completed [facility] of MODERNA 12+ YRS 00:00:00 [place] [facility] VACCINE [facility] SARS-COV-2 COVID-19 2020-10-26 Completed [facility] of MODERNA 12+ YRS 00:00:00 [facility] ical VACCINE Branch Td 2019-02-16 Completed University of 00:00:00 [facility] TD, NOS 2019-02-16 Completed [facility] 00:00:00 [facility] TD, NOS 2019-02-16 Completed [facility] of 00:00:00 [facility] TD, NOS 2019-02-16 Completed [facility] of 00:00:00 [facility] TD, NOS 2019-02-16 Completed University of 00:00:00 [facility] TD, NOS 2019-02-16 Completed University of 00:00:00 [facility] Td 2019-02-16 Completed [facility] of 00:00:00 [facility] TD, NOS 2019-02-16 Completed University of 00:00:00 [facility] TD, NOS 2019-02-16 Completed University of 00:00:00 [facility] TD, NOS 2019-02-16 Completed [facility] 00:00:00 [facility] TD, NOS 2019-02-16 Completed [facility] 00:00:00 [facility] TD, NOS 2019-02-16 Completed [facility] 00:00:00 [facility] TD, NOS 2019-02-16 Completed [facility] 00:00:00 [facility] TD, NOS 2019-02-16 Completed [facility] 00:00:00 [facility] Td 2019-02-16 Completed [facility] 00:00:00 [facility] TD, NOS 2019-02-16 Completed [facility] 00:00:00 [facility] TD, NOS 2019-02-16 Completed [facility] 00:00:00 [facility] TD, NOS 2019-02-16 Completed [facility] 00:00:00 [facility] TD, NOS 2019-02-16 Completed [facility] 00:00:00 [facility] Td 2019-02-16 Completed [facility] 00:00:00 [facility] TD, NOS 2019-02-16 Completed [facility] 00:00:00 [facility] TD, NOS 2019-02-16 Completed [facility] of 00:00:00 [facility] TD, NOS 2019-02-16 Completed [facility] 00:00:00 [facility] TD, NOS 2019-02-16 Completed [facility] 00:00:00 [facility] Td 2019-02-16 Completed [facility] 00:00:00 [facility] TD, NOS 2019-02-16 Completed [facility] 00:00:00 [facility] TD, NOS 2019-02-16 Completed [facility] 00:00:00 [facility] TD, NOS 2019-02-16 Completed [facility] 00:00:00 [facility] TD, NOS 2019-02-16 Completed [facility] 00:00:00 [facility] TD, NOS 2019-02-16 Completed [facility] 00:00:00 [facility] TD, NOS 2019-02-16 Completed [facility] 00:00:00 [facility] TD, NOS 2019-02-16 Completed [facility] 00:00:00 [facility] Td 2019-02-16 Completed [facility] 00:00:00 [facility] TD, NOS 2019-02-16 Completed [facility] 00:00:00 [facility] TD, NOS 2019-02-16 Completed [facility] 00:00:00 [facility] TD, NOS 2019-02-16 Completed [facility] 00:00:00 [facility] TD, NOS 2019-02-16 Completed [facility] 00:00:00 [facility] Td 2019-02-16 Completed [facility] 00:00:00 [facility] TD, NOS 2019-02-16 Completed [facility] 00:00:00 [facility] TD, NOS 2019-02-16 Completed [facility] of 00:00:00 [facility] TD, NOS 2019-02-16 Completed [facility] 00:00:00 [facility] TD, NOS 2019-02-16 Completed [facility] 00:00:00 [facility] Td 2019-02-16 Completed [facility] 00:00:00 [facility] TD, NOS 2019-02-16 Completed [facility] 00:00:00 [facility] TD, NOS 2019-02-16 Completed [facility] 00:00:00 [facility] TD, NOS 2019-02-16 Completed [facility] 00:00:00 [facility] Td 2019-02-16 Completed [facility] 00:00:00 [facility] Td 2019-02-16 Completed [facility] 00:00:00 [facility] Td 2019-02-16 Completed [facility] 00:00:00 [facility] Td 2019-02-16 Completed [facility] 00:00:00 [facility] Td 2019-02-16 Completed [facility] 00:00:00 [facility] Td 2019-02-16 Completed [facility] 00:00:00 [facility] Td 2019-02-16 Completed [facility] 00:00:00 [facility] Td 2019-02-16 Completed [facility] 00:00:00 [facility] Td 2019-02-16 Completed [facility] 00:00:00 [facility] Td 2019-02-16 Completed [facility] 00:00:00 [facility] Td 2019-02-16 Completed [facility] 00:00:00 [facility] Td 2019-02-16 Completed [facility] 00:00:00 [facility] Td 2019-02-16 Completed [facility] 00:00:00 [facility] Td 2019-02-16 Completed [facility] 00:00:00 [facility] TD, NOS 2019-02-16 Completed [facility] 00:00:00 [facility] TD, NOS 2019-02-16 Completed [facility] 00:00:00 [facility] TD, NOS 2019-02-16 Completed [facility] 00:00:00 [facility] TD, NOS 2019-02-16 Completed [facility] 00:00:00 [facility] Td 2019-02-16 Completed [facility] 00:00:00 [facility] TD, NOS 2019-02-16 Completed [facility] of 00:00:00 [facility] TD, NOS 2019-02-16 Completed [facility] of 00:00:00 [facility] TD, NOS 2019-02-16 Completed University of 00:00:00 [facility] Pneumococcal 2014-09-05 Completed University o f Polysaccharide, 00:00:00 [place] [facility] PPSV23 (PNEUMOVAX) Branch Influenza Virus 2014-09-05 Completed Universit y of Vaccine Quad IM 3+ 00:00:00 [facility] Pneumococcal 2014-09-05 Completed University o f Polysaccharide, 00:00:00 [place] [facility] PPSV23 (PNEUMOVAX) Branch Influenza Virus 2014-09-05 Completed Universit y of Vaccine [facility] IM 3+ 00:00:00 [facility] Pneumococcal 2014-09-05 Completed University o f Polysaccharide, 00:00:00 [place] [facility] PPSV23 (PNEUMOVAX) Branch Influenza Virus 2014-09-05 Completed [facility]it y of Vaccine Quad IM 3+ 00:00:00 [facility] Pneumococcal 2014-09-05 Completed University o f Polysaccharide, 00:00:00 [place] [facility] PPSV23 (PNEUMOVAX) Branch Influenza Virus 2014-09-05 Completed [facility]it y of Vaccine Quad IM 3+ 00:00:00 [facility] Pneumococcal 2014-09-05 Completed University o f Polysaccharide, 00:00:00 [place] [facility] PPSV23 (PNEUMOVAX) Branch Influenza Virus 2014-09-05 Completed [facility]it y of Vaccine Quad IM 3+ 00:00:00 [facility] Pneumococcal 2014-09-05 Completed [facility] o f Polysaccharide, 00:00:00 [place] [facility] PPSV23 (PNEUMOVAX) Branch Influenza Virus 2014-09-05 Completed [facility]it y of Vaccine Quad IM 3+ 00:00:00 [facility] Pneumococcal 2014-09-05 Completed University o f Polysaccharide, 00:00:00 [place] [facility] PPSV23 (PNEUMOVAX) Branch Influenza Virus 2014-09-05 Completed [facility]it y of Vaccine [facility] IM 3+ 00:00:00 [facility] Pneumococcal 2014-09-05 Completed [facility] o f Polysaccharide, 00:00:00 [place] [facility] PPSV23 (PNEUMOVAX) Branch Influenza Virus 2014-09-05 Completed [facility]it y of Vaccine Quad IM 3+ 00:00:00 [facility] Pneumococcal 2014-09-05 Completed [facility] o f Polysaccharide, 00:00:00 [place] [facility] PPSV23 (PNEUMOVAX) Branch Influenza Virus 2014-09-05 Completed [facility]it y of Vaccine Quad IM 3+ 00:00:00 [facility] Pneumococcal 2014-09-05 Completed [facility] o f Polysaccharide, 00:00:00 [place] [facility] PPSV23 (PNEUMOVAX) Branch Influenza Virus 2014-09-05 Completed [facility]it y of Vaccine [facility] IM 3+ 00:00:00 [facility] Pneumococcal 2014-09-05 Completed [facility] o f Polysaccharide, 00:00:00 [place] [facility] PPSV23 (PNEUMOVAX) Branch Influenza Virus 2014-09-05 Completed [facility]it y of Vaccine Quad IM 3+ 00:00:00 [facility] Pneumococcal 2014-09-05 Completed [facility] o f Polysaccharide, 00:00:00 [place] [facility] PPSV23 (PNEUMOVAX) Branch Influenza Virus 2014-09-05 Completed [facility]it y of Vaccine [facility] IM 3+ 00:00:00 [facility] Pneumococcal 2014-09-05 Completed [facility] o f Polysaccharide, 00:00:00 [place] [facility] PPSV23 (PNEUMOVAX) Branch Influenza Virus 2014-09-05 Completed [facility]it y of Vaccine [facility] IM 3+ 00:00:00 [facility] Influenza Virus 2014-09-05 Completed [facility]it y of Vaccine [facility] IM 3+ 00:00:00 [facility] Pneumococcal 2014-09-05 Completed [facility] o f Polysaccharide, 00:00:00 [place] [facility] PPSV23 (PNEUMOVAX) Branch Pneumococcal 2014-09-05 Completed [facility] o f Polysaccharide, 00:00:00 [place] [facility] PPSV23 (PNEUMOVAX) Branch Influenza Virus 2014-09-05 Completed [facility]it y of Vaccine [facility] IM 3+ 00:00:00 [facility] Pneumococcal 2014-09-05 Completed [facility] o f Polysaccharide, 00:00:00 [place] [facility] PPSV23 (PNEUMOVAX) Branch Influenza Virus 2014-09-05 Completed [facility]it y of Vaccine [facility] IM 3+ 00:00:00 [facility] Pneumococcal 2014-09-05 Completed [facility] o f Polysaccharide, 00:00:00 [place] [facility] PPSV23 (PNEUMOVAX) Branch Influenza Virus 2014-09-05 Completed [facility]it y of Vaccine Quad IM 3+ 00:00:00 [facility] Pneumococcal 2014-09-05 Completed [facility] o f Polysaccharide, 00:00:00 [place] [facility] PPSV23 (PNEUMOVAX) Branch Influenza Virus 2014-09-05 Completed [facility]it y of Vaccine [facility] IM 3+ 00:00:00 [facility] Pneumococcal 2014-09-05 Completed [facility] o f Polysaccharide, 00:00:00 [place] [facility] PPSV23 (PNEUMOVAX) Branch Influenza Virus 2014-09-05 Completed [facility]it y of Vaccine [facility] IM 3+ 00:00:00 [facility] Pneumococcal 2014-09-05 Completed [facility] o f Polysaccharide, 00:00:00 [place] [facility] PPSV23 (PNEUMOVAX) Branch Influenza Virus 2014-09-05 Completed [facility] y of Vaccine [facility] IM 3+ 00:00:00 [facility] Pneumococcal 2014-09-05 Completed [facility] o f Polysaccharide, 00:00:00 [place] [facility] PPSV23 (PNEUMOVAX) Branch Influenza Virus 2014-09-05 Completed [facility]it y of Vaccine Quad IM 3+ 00:00:00 [facility] Pneumococcal 2014-09-05 Completed [facility] o f Polysaccharide, 00:00:00 [place] [facility] PPSV23 (PNEUMOVAX) Branch Influenza Virus 2014-09-05 Completed [facility] y of Vaccine [facility] IM 3+ 00:00:00 [facility] Pneumococcal 2014-09-05 Completed [facility] o f Polysaccharide, 00:00:00 [place] [facility] PPSV23 (PNEUMOVAX) Branch Influenza Virus 2014-09-05 Completed [facility] y of Vaccine [facility] IM 3+ 00:00:00 [facility] Pneumococcal 2014-09-05 Completed [facility] o f Polysaccharide, 00:00:00 [place] [facility] PPSV23 (PNEUMOVAX) Branch Influenza Virus 2014-09-05 Completed [facility]it y of Vaccine [facility] IM 3+ 00:00:00 [facility] Pneumococcal 2014-09-05 Completed [facility] o f Polysaccharide, 00:00:00 [place] [facility] PPSV23 (PNEUMOVAX) Branch Influenza Virus 2014-09-05 Completed [facility] y of Vaccine [facility] IM 3+ 00:00:00 [facility] Pneumococcal 2014-09-05 Completed [facility] o f Polysaccharide, 00:00:00 [place] [facility] PPSV23 (PNEUMOVAX) Branch Influenza Virus 2014-09-05 Completed [facility]it y of Vaccine [facility] IM 3+ 00:00:00 [facility] Pneumococcal 2014-09-05 Completed [facility] o f Polysaccharide, 00:00:00 [place] [facility] PPSV23 (PNEUMOVAX) Branch Influenza Virus 2014-09-05 Completed [facility] y of Vaccine [facility] IM 3+ 00:00:00 [facility] Pneumococcal 2014-09-05 Completed [facility] o f Polysaccharide, 00:00:00 [place] [facility] PPSV23 (PNEUMOVAX) Branch Influenza Virus 2014-09-05 Completed [facility] y of Vaccine [facility] IM 3+ 00:00:00 [facility] Pneumococcal 2014-09-05 Completed [facility] o f Polysaccharide, 00:00:00 [place] [facility] PPSV23 (PNEUMOVAX) Branch Influenza Virus 2014-09-05 Completed [facility] y of Vaccine Quad IM 3+ 00:00:00 [facility] Pneumococcal 2014-09-05 Completed [facility] o f Polysaccharide, 00:00:00 [place] [facility] PPSV23 (PNEUMOVAX) Branch Influenza Virus 2014-09-05 Completed [facility] y of Vaccine Quad IM 3+ 00:00:00 [facility] Pneumococcal 2014-09-05 Completed [facility] o f Polysaccharide, 00:00:00 [place] [facility] PPSV23 (PNEUMOVAX) Branch Influenza Virus 2014-09-05 Completed [facility] IM 3+ 00:00:00 [facility] Influenza Virus 2014-09-05 Completed [facility] IM 3+ 00:00:00 [facility] Pneumococcal 2014-09-05 Completed [facility] f Polysaccharide, 00:00:00 [place] [facility] PPSV23 (PNEUMOVAX) [facility] Pneumococcal 2014-09-05 Completed [facility] f Polysaccharide, 00:00:00 [place] [facility] PPSV23 (PNEUMOVAX) [facility] Influenza Virus 2014-09-05 Completed [facility] Vaccine Quad IM 3+ 00:00:00 [facility] Pneumococcal 2014-09-05 Completed [facility] f Polysaccharide, 00:00:00 [place] [facility] PPSV23 (PNEUMOVAX) [facility] Influenza Virus 2014-09-05 Completed [facility] Vaccine Quad IM 3+ 00:00:00 [facility] Pneumococcal 2014-09-05 Completed [facility] f Polysaccharide, 00:00:00 [place] [facility] PPSV23 (PNEUMOVAX) [facility] Influenza Virus 2014-09-05 Completed [facility] Vaccine Quad IM 3+ 00:00:00 [facility] Pneumococcal 2014-09-05 Completed [facility] Polysaccharide, 00:00:00 [place] [facility] PPSV23 (PNEUMOVAX) [facility] Influenza Virus 2014-09-05 Completed [facility] Vaccine Quad IM 3+ 00:00:00 [facility] Pneumococcal 2014-09-05 Completed [facility] f Polysaccharide, 00:00:00 [place] [facility] PPSV23 (PNEUMOVAX) [facility] Influenza Virus 2014-09-05 Completed [facility] Vaccine Quad IM 3+ 00:00:00 [facility] Pneumococcal 2014-09-05 Completed [facility] Polysaccharide, 00:00:00 [place] [facility] PPSV23 (PNEUMOVAX) [facility] Influenza Virus 2014-09-05 Completed [facility] Vaccine Quad IM 3+ 00:00:00 [facility] Pneumococcal 2014-09-05 Completed [facility] f Polysaccharide, 00:00:00 [place] [facility] PPSV23 (PNEUMOVAX) [facility] Influenza Virus 2014-09-05 Completed [facility] Vaccine Quad IM 3+ 00:00:00 [facility] Pneumococcal 2014-09-05 Completed [facility] Polysaccharide, 00:00:00 [place] [facility] PPSV23 (PNEUMOVAX) [facility] Influenza Virus 2014-09-05 Completed [facility] Vaccine Quad IM 3+ 00:00:00 [facility] Pneumococcal 2014-09-05 Completed [facility] f Polysaccharide, 00:00:00 [place] [facility] PPSV23 (PNEUMOVAX) [facility] Influenza Virus 2014-09-05 Completed [facility] Vaccine Quad IM 3+ 00:00:00 [facility] Pneumococcal 2014-09-05 Completed [facility] Polysaccharide, 00:00:00 [place] [facility] PPSV23 (PNEUMOVAX) [facility] Influenza Virus 2014-09-05 Completed [facility] Vaccine Quad IM 3+ 00:00:00 [facility] Pneumococcal 2014-09-05 Completed [facility] Polysaccharide, 00:00:00 [place] [facility] PPSV23 (PNEUMOVAX) [facility] Influenza Virus 2014-09-05 Completed [facility] Vaccine Quad IM 3+ 00:00:00 [facility] Pneumococcal 2014-09-05 Completed [facility] Polysaccharide, 00:00:00 [place] [facility] PPSV23 (PNEUMOVAX) [facility] Influenza Virus 2014-09-05 Completed [facility] Vaccine Quad IM 3+ 00:00:00 [facility] Pneumococcal 2014-09-05 Completed [facility] f Polysaccharide, 00:00:00 [place] [facility] PPSV23 (PNEUMOVAX) [facility] Influenza Virus 2014-09-05 Completed [facility] Vaccine Quad IM 3+ 00:00:00 [facility] Pneumococcal 2014-09-05 Completed [facility] f Polysaccharide, 00:00:00 [place] [facility] PPSV23 (PNEUMOVAX) [facility] Influenza Virus 2014-09-05 Completed [facility] Vaccine Quad IM 3+ 00:00:00 [facility] Pneumococcal 2014-09-05 Completed [facility] f Polysaccharide, 00:00:00 [place] [facility] PPSV23 (PNEUMOVAX) [facility] Influenza Virus 2014-09-05 Completed [facility] Vaccine Quad IM 3+ 00:00:00 [facility] Pneumococcal 2014-09-05 Completed [facility] f Polysaccharide, 00:00:00 [place] [facility] PPSV23 (PNEUMOVAX) [facility] Influenza Virus 2014-09-05 Completed [facility] Vaccine Quad IM 3+ 00:00:00 [facility] Pneumococcal 2014-09-05 Completed [facility] Polysaccharide, 00:00:00 [place] [facility] PPSV23 (PNEUMOVAX) [facility] Influenza Virus 2014-09-05 Completed [facility] Vaccine Quad IM 3+ 00:00:00 [facility] Pneumococcal 2014-09-05 Completed [facility] f Polysaccharide, 00:00:00 [place] [facility] PPSV23 (PNEUMOVAX) [facility] Influenza Virus 2014-09-05 Completed [facility] Vaccine Quad IM 3+ 00:00:00 [facility] Pneumococcal 2014-09-05 Completed [facility] f Polysaccharide, 00:00:00 [place] [facility] PPSV23 (PNEUMOVAX) [facility] Influenza Virus 2014-09-05 Completed [facility] Vaccine Quad IM 3+ 00:00:00 [facility] Pneumococcal 2014-09-05 Completed [facility] f Polysaccharide, 00:00:00 [place] [facility] PPSV23 (PNEUMOVAX) [facility] Influenza Virus 2014-09-05 Completed [facility] Vaccine Quad IM 3+ 00:00:00 [facility] Pneumococcal 2014-09-05 Completed [facility] f Polysaccharide, 00:00:00 [place] [facility] PPSV23 (PNEUMOVAX) [facility] Influenza Virus 2014-09-05 Completed [facility] Vaccine Quad IM 3+ 00:00:00 [facility] Pneumococcal 2014-09-05 Completed [facility] f Polysaccharide, 00:00:00 [place] [facility] PPSV23 (PNEUMOVAX) [facility] Influenza Virus 2014-09-05 Completed [facility] Vaccine Quad IM 3+ 00:00:00 [facility] Pneumococcal 2014-09-05 Completed [facility] f Polysaccharide, 00:00:00 [place] [facility] PPSV23 (PNEUMOVAX) Branch Influenza Virus 2014-09-05 Completed [facility] Vaccine Quad IM 3+ 00:00:00 [facility] Pneumococcal 2014-09-05 Completed [facility] f Polysaccharide, 00:00:00 [place] [facility] PPSV23 (PNEUMOVAX) [facility] Influenza Virus 2014-09-05 Completed [facility] Vaccine Quad IM 3+ 00:00:00 [facility] Pneumococcal 2014-09-05 Completed [facility] f Polysaccharide, 00:00:00 [place] [facility] PPSV23 (PNEUMOVAX) [facility] Influenza Virus 2014-09-05 Completed [facility] Vaccine Quad IM 3+ 00:00:00 [facility] Pneumococcal 2014-09-05 Completed [facility] f Polysaccharide, 00:00:00 [place] [facility] PPSV23 (PNEUMOVAX) [facility] Influenza Virus 2014-09-05 Completed [facility] Vaccine Quad IM 3+ 00:00:00 [facility] Pneumococcal 2014-09-05 Completed [facility] f Polysaccharide, 00:00:00 [place] [facility] PPSV23 (PNEUMOVAX) [facility] Influenza Virus 2014-09-05 Completed [facility] Vaccine Quad IM 3+ 00:00:00 [facility] Pneumococcal 2014-09-05 Completed [facility] f Polysaccharide, 00:00:00 [place] [facility] PPSV23 (PNEUMOVAX) [facility] Influenza Virus 2014-09-05 Completed [facility] Vaccine Quad IM 3+ 00:00:00 [facility] Pneumococcal 2014-09-05 Completed [facility] f Polysaccharide, 00:00:00 [place] [facility] PPSV23 (PNEUMOVAX) [facility] Influenza Virus 2014-09-05 Completed [facility] Vaccine Quad IM 3+ 00:00:00 [facility] Pneumococcal 2014-09-05 Completed [facility] f Polysaccharide, 00:00:00 [place] [facility] PPSV23 (PNEUMOVAX) [facility] Influenza Virus 2014-09-05 Completed [facility] Vaccine Quad IM 3+ 00:00:00 [facility] Pneumococcal 2014-09-05 Completed [facility] f Polysaccharide, 00:00:00 [place] [facility] PPSV23 (PNEUMOVAX) [facility] Influenza Virus 2014-09-05 Completed [facility] Vaccine Quad IM 3+ 00:00:00 [facility] Influenza Virus 2014-09-05 Completed [facility] Vaccine Quad IM 3+ 00:00:00 [facility] Pneumococcal 2014-09-05 Completed [facility] f Polysaccharide, 00:00:00 [place] [facility] PPSV23 (PNEUMOVAX) [facility] Pneumococcal 2014-09-05 Completed [facility] f Polysaccharide, 00:00:00 [place] [facility] PPSV23 (PNEUMOVAX) [facility] Influenza Virus 2014-09-05 Completed [facility] Vaccine Quad IM 3+ 00:00:00 [facility] Pneumococcal 2014-09-05 Completed [facility] f Polysaccharide, 00:00:00 [place] [facility] PPSV23 (PNEUMOVAX) Branch Influenza Virus 2014-09-05 Completed [facility] Vaccine Quad IM 3+ 00:00:00 [facility] Pneumococcal 2014-09-05 Completed [facility] f Polysaccharide, 00:00:00 [place] [facility] PPSV23 (PNEUMOVAX) [facility] Influenza Virus 2014-09-05 Completed [facility] Vaccine Quad IM 3+ 00:00:00 [facility] Pneumococcal 2014-09-05 Completed [facility] o f Polysaccharide, 00:00:00 [place] [facility] PPSV23 (PNEUMOVAX) [facility] Influenza Virus 2014-09-05 Completed [facility] Vaccine Quad IM 3+ 00:00:00 [facility] Vital Signs Vital Name Observation Time Observation Value Comments Source Systolic blood 2023-03-01 143 mm[Hg] [facility] of pressure 20:27:00 [facility] Diastolic blood 2023-03-01 87 mm[Hg] University o f pressure 20:27:00 [facility] Heart rate 2023-03-01 99 /min University of 20:27:00 [facility] Body height 2023-03-01 177.8 cm University 20:27:00 [facility] Body weight 2023-03-01 57.153 kg University of 20:27:00 [facility] BMI 2023-03-01 18.08 kg/m2 University of 20:27:00 [facility] Oxygen saturation 2023-03-01 99 /min University of in Arterial blood 20:27:00 [facility] by Pulse oximetry Branch Systolic blood 2023-02-18 144 mm[Hg] University of pressure 16:17:00 [facility] Diastolic blood 2023-02-18 68 mm[Hg] University o f pressure 16:17:00 [facility] Heart rate 2023-02-18 55 /min University of 16:17:00 [facility] Body temperature 2023-02-18 36.06 Tia University of 16:17:00 [facility] Respiratory rate 2023-02-18 18 /min University of 16:17:00 [facility] Oxygen saturation 2023-02-18 100 /min University of in Arterial blood 16:17:00 [facility] by Pulse oximetry Branch Body weight 2023-02-18 58.968 kg University of 07:50:00 [facility] BMI 2023-02-18 18.65 kg/m2 University of 07:50:00 [facility] Body height 2023-02-16 177.8 cm University of 00:31:00 [facility] Oxygen saturation 2023-02-07 99 /min University of in Arterial blood 19:29:00 [facility] by Pulse oximetry Branch Systolic blood 2023-02-07 103 mm[Hg] [facility] of pressure 19:27:00 [facility] Diastolic blood 2023-02-07 75 mm[Hg] University o f pressure 19:27:00 [facility] Heart rate 2023-02-07 104 /min University of 19:27:00 [facility] Body temperature 2023-02-07 36.39 Tia University of 19:27:00 [facility] Respiratory rate 2023-02-07 22 /min University of 19:27:00 [facility] Body weight 2023-02-07 72.576 kg University of 19:27:00 [facility] BMI 2023-02-07 22.96 kg/m2 University of 19:27:00 [facility] Heart rate 2023-02-05 85 /min University of 20:17:00 [facility] Respiratory rate 2023-02-05 18 /min University of 20:17:00 [facility] Oxygen saturation 2023-02-05 100 /min [facility] of in Arterial blood 20:17:00 [facility] by Pulse oximetry Branch Systolic blood 2023-02-05 98 mm[Hg] University of pressure 19:53:35 [facility] Diastolic blood 2023-02-05 71 mm[Hg] University o f pressure 19:53:35 [facility] Body temperature 2023-02-05 36.5 Tia University of 19:51:00 [facility] Body height 2023-02-05 177.8 cm University of 19:51:00 [facility] Body weight 2023-02-05 72.576 kg University of 19:51:00 [facility] BMI 2023-02-05 22.96 kg/m2 University of 19:51:00 [facility] Heart rate 2023-02-04 76 /min University of 20:31:00 [facility] Respiratory rate 2023-02-04 18 /min University of 20:31:00 [facility] Oxygen saturation 2023-02-04 97 /min [facility] of in Arterial blood 20:31:00 [facility] by Pulse oximetry [facility] Systolic blood 2023-02-04 126 mm[Hg] [facility] of pressure 20:15:00 [facility] Diastolic blood 2023-02-04 98 mm[Hg] University o f pressure 20:15:00 [facility] Body temperature 2023-02-04 36.83 Tia University of 20:15:00 [facility] Body weight 2023-02-04 72.576 kg University of 20:15:00 [facility] BMI 2023-02-04 22.96 kg/m2 University of 20:15:00 [facility] Systolic blood 2023-02-03 100 mm[Hg] University of pressure 23:00:00 [facility] Diastolic blood 2023-02-03 65 mm[Hg] University o f pressure 23:00:00 [facility] Heart rate 2023-02-03 115 /min University of 23:00:00 [facility] Respiratory rate 2023-02-03 20 /min University of 23:00:00 [facility] Oxygen saturation 2023-02-03 97 /min University of in Arterial blood 23:00:00 [facility] by Pulse oximetry [facility] Body temperature 2023-02-03 36.72 Tia University of 22:44:00 [facility] Body weight 2023-02-03 72.576 kg University of 22:44:00 [facility] BMI 2023-02-03 22.96 kg/m2 University of 22:44:00 [facility] Systolic blood 2023-02-03 128 mm[Hg] University of pressure 20:02:00 [facility] Diastolic blood 2023-02-03 81 mm[Hg] University o f pressure 20:02:00 [facility] Heart rate 2023-02-03 88 /min University of 20:02:00 [facility] Respiratory rate 2023-02-03 25 /min University of 20:02:00 [facility] Oxygen saturation 2023-02-03 94 /min University of in Arterial blood 20:02:00 [facility] by Pulse oximetry [facility] Body temperature 2023-02-03 36.61 Tia University of 18:18:00 [facility] Body weight 2023-02-03 72.576 kg University of 17:41:00 [facility] BMI 2023-02-03 22.96 kg/m2 University of 17:41:00 [facility] Heart rate 2023-02-02 107 /min University of 22:49:00 [facility] Respiratory rate 2023-02-02 20 /min University of 22:49:00 [facility] Oxygen saturation 2023-02-02 94 /min [facility] of in Arterial blood 22:49:00 [facility] by Pulse oximetry Branch Systolic blood 2023-02-02 102 mm[Hg] University of pressure 22:32:00 [facility] Diastolic blood 2023-02-02 74 mm[Hg] University o f pressure 22:32:00 [facility] Body temperature 2023-02-02 35.83 Tia University of 21:58:32 [facility] Body height 2023-02-02 177.8 cm University of 21:54:00 [facility] Body weight 2023-02-02 72.576 kg University of 21:54:00 [facility] BMI 2023-02-02 22.96 kg/m2 University of 21:54:00 [facility] Systolic blood 2023-01-31 140 mm[Hg] University of pressure 21:00:00 [facility] Diastolic blood 2023-01-31 72 mm[Hg] University o f pressure 21:00:00 [facility] Heart rate 2023-01-31 89 /min University of 21:00:00 [facility] Respiratory rate 2023-01-31 20 /min University of 21:00:00 [facility] Oxygen saturation 2023-01-31 97 /min University of in Arterial blood 21:00:00 [facility] by Pulse oximetry Branch Body temperature 2023-01-31 36.72 Tia University of 18:50:00 [facility] Body weight 2023-01-31 72.576 kg University of 18:50:00 [facility] BMI 2023-01-31 22.96 kg/m2 University of 18:50:00 [facility] Systolic blood 2023-01-31 130 mm[Hg] University of pressure 16:09:00 [facility] Diastolic blood 2023-01-31 72 mm[Hg] University o f pressure 16:09:00 [facility] Heart rate 2023-01-31 99 /min University of 16:09:00 [facility] Body temperature 2023-01-31 36.39 Tia University of 16:09:00 [facility] Respiratory rate 2023-01-31 18 /min University of 16:09:00 [facility] Body height 2023-01-31 177.8 cm University of 16:09:00 [facility] Body weight 2023-01-31 72.576 kg University of 16:09:00 [facility] BMI 2023-01-31 22.96 kg/m2 University of 16:09:00 [facility] Oxygen saturation 2023-01-31 97 /min University of in Arterial blood 16:09:00 [facility] by Pulse oximetry Branch Systolic blood 2023-01-31 134 mm[Hg] University of pressure 14:50:00 [facility] Diastolic blood 2023-01-31 72 mm[Hg] University o f pressure 14:50:00 [facility] Heart rate 2023-01-31 85 /min University of 14:50:00 [facility] Body temperature 2023-01-31 36.39 Tia University of 14:50:00 [facility] Respiratory rate 2023-01-31 20 /min University of 14:50:00 [facility] Body weight 2023-01-31 72.576 kg University of 14:50:00 [facility] BMI 2023-01-31 22.96 kg/m2 University of 14:50:00 [facility] Oxygen saturation 2023-01-31 100 /min University of in Arterial blood 14:50:00 [facility] by Pulse oximetry Branch Respiratory rate 2023-01-29 20 /min University of 13:40:00 [facility] Oxygen saturation 2023-01-29 100 /min University of in Arterial blood 13:40:00 [facility] by Pulse oximetry Branch Systolic blood 2023-01-29 123 mm[Hg] University of pressure 13:06:00 [facility] Diastolic blood 2023-01-29 76 mm[Hg] University o f pressure 13:06:00 [facility] Heart rate 2023-01-29 97 /min University of 13:06:00 [facility] Body temperature 2023-01-29 36.61 Tia University of 13:06:00 [facility] Body height 2023-01-29 177.8 cm University of 13:06:00 [facility] Body weight 2023-01-29 72.576 kg University of 13:06:00 [facility] BMI 2023-01-29 22.96 kg/m2 University of 13:06:00 [facility] Systolic blood 2023-01-27 115 mm[Hg] University of pressure 11:47:00 [facility] Diastolic blood 2023-01-27 75 mm[Hg] University o f pressure 11:47:00 [facility] Heart rate 2023-01-27 100 /min University of 11:47:00 [facility] Body temperature 2023-01-27 35.78 Tia University of 11:47:00 [facility] Respiratory rate 2023-01-27 28 /min University of 11:47:00 [facility] Oxygen saturation 2023-01-27 99 /min [facility] of in Arterial blood 11:47:00 [facility] by Pulse oximetry Branch Body height 2023-01-27 177.8 cm University of 09:57:00 [facility] Body weight 2023-01-27 72.576 kg University of 09:57:00 [facility] BMI 2023-01-27 22.96 kg/m2 University of 09:57:00 [facility] Heart rate 2023-01-24 88 /min University of 20:55:00 [facility] Oxygen saturation 2023-01-24 93 /min University of in Arterial blood 20:55:00 [facility] Pulse oximetry [facility] Respiratory rate 2023-01-24 22 /min University of 20:52:00 [facility] Systolic blood 2023-01-24 128 mm[Hg] University of pressure 20:30:00 [facility] Diastolic blood 2023-01-24 69 mm[Hg] University o f pressure 20:30:00 [facility] Body temperature 2023-01-24 36.67 Tia University of 17:24:00 [facility] Body height 2023-01-24 177.8 cm University of 17:24:00 [facility] Body weight 2023-01-24 72.576 kg University of 17:24:00 [facility] BMI 2023-01-24 22.96 kg/m2 University of 17:24:00 [facility] Systolic blood 2023-01-24 129 mm[Hg] University of pressure 01:00:00 [facility] Diastolic blood 2023-01-24 76 mm[Hg] University o f pressure 01:00:00 [facility] Heart rate 2023-01-24 77 /min University of 01:00:00 [facility] Respiratory rate 2023-01-24 18 /min University of 01:00:00 [facility] Oxygen saturation 2023-01-24 99 /min [facility] of in Arterial blood 01:00:00 [facility] by Pulse oximetry Branch Body temperature 2023-01-24 35.61 Tia warm blankets University of 00:02:00 applied [facility] Body weight 2023-01-24 58.968 kg University of 00:02:00 [facility] BMI 2023-01-24 18.65 kg/m2 University of 00:02:00 [facility] Heart rate 2023-01-22 93 /min University of 23:46:00 [facility] Respiratory rate 2023-01-22 20 /min University of 23:46:00 [facility] Oxygen saturation 2023-01-22 100 /min [facility] of in Arterial blood 23:46:00 [facility] Systolic blood 2023-01-22 146 mm[Hg] [facility] of pressure 23:21:00 [facility] Diastolic blood 2023-01-22 93 mm[Hg] University o f pressure 23:21:00 [facility] Body temperature 2023-01-22 36.72 Tia University of 23:21:00 [facility] Body weight 2023-01-22 58.968 kg University of 23:21:00 [facility] BMI 2023-01-22 18.65 kg/m2 University of 23:21:00 [facility] Heart rate 2023-01-21 84 /min University of 21:57:00 [facility] Respiratory rate 2023-01-21 18 /min University of 21:57:00 [facility] Oxygen saturation 2023-01-21 97 /min [facility] of in Arterial blood 21:57:00 [facility] by Pulse oximetry Branch Systolic blood 2023-01-21 103 mm[Hg] [facility] of pressure 21:00:00 [facility] Diastolic blood 2023-01-21 61 mm[Hg] University o f pressure 21:00:00 [facility] Body temperature 2023-01-21 36.56 Tia University of 19:24:00 [facility] Body weight 2023-01-21 58.968 kg University of 19:24:00 [facility] BMI 2023-01-21 18.65 kg/m2 University of 19:24:00 [facility] Systolic blood 2023-01-19 111 mm[Hg] [facility] of pressure 21:00:00 [facility] Diastolic blood 2023-01-19 64 mm[Hg] University o f pressure 21:00:00 [facility] Heart rate 2023-01-19 85 /min University of 21:00:00 [facility] Body temperature 2023-01-19 36.56 Tia University of 21:00:00 [facility] Respiratory rate 2023-01-19 17 /min University of 21:00:00 [facility] Oxygen saturation 2023-01-19 98 /min [facility] of in Arterial blood 21:00:00 [facility] by Pulse oximetry Branch Body height 2023-01-19 177.8 cm University of 06:22:00 [facility] Body weight 2023-01-19 58.968 kg University of 06:22:00 [facility] BMI 2023-01-19 18.65 kg/m2 University of 06:22:00 [facility] Systolic blood 2023-01-17 116 mm[Hg] [facility] of pressure 12:05:00 [facility] Diastolic blood 2023-01-17 69 mm[Hg] University o f pressure 12:05:00 [facility] Heart rate 2023-01-17 100 /min University of 12:05:00 [facility] Respiratory rate 2023-01-17 24 /min University of 12:05:00 [facility] Oxygen saturation 2023-01-17 93 /min [facility] of in Arterial blood 12:05:00 [facility] Pulse oximetry [facility] Body temperature 2023-01-17 35.39 Tia University of 10:59:00 [facility] Body height 2023-01-17 177.8 cm University of 10:59:00 [facility] Body weight 2023-01-17 58.968 kg University of 10:59:00 [facility] BMI 2023-01-17 18.65 kg/m2 University of 10:59:00 [facility] Systolic blood 2023-01-07 122 mm[Hg] [facility] of pressure 19:38:00 [facility] Diastolic blood 2023-01-07 86 mm[Hg] University o f pressure 19:38:00 [facility] Heart rate 2023-01-07 110 /min University of 19:38:00 [facility] Respiratory rate 2023-01-07 16 /min University of 19:38:00 [facility] Body height 2023-01-07 177.8 cm University of 19:38:00 [facility] Body weight 2023-01-07 59.966 kg University of 19:38:00 [facility] BMI 2023-01-07 18.97 kg/m2 University of 19:38:00 [facility] Systolic blood 2022-12-26 118 mm[Hg] [facility] of pressure 18:00:00 [facility] Diastolic blood 2022-12-26 79 mm[Hg] [facility] o f pressure 18:00:00 [facility] Heart rate 2022-12-26 93 /min University of 18:00:00 [facility] Respiratory rate 2022-12-26 20 /min University of 18:00:00 [facility] Oxygen saturation 2022-12-26 95 /min University of in Arterial blood 18:00:00 [facility] lucho by Pulse oximetry Branch Body temperature 2022-12-26 36.11 Tia University of 15:49:00 [facility] Body height 2022-12-26 177.8 cm University of 15:49:00 [facility] Body weight 2022-12-26 72.576 kg University of 15:49:00 [facility] BMI 2022-12-26 22.96 kg/m2 University [facility] 15:49:00 [facility] Respiratory rate 2022-12-12 18 /min University of 16:45:00 [facility] Oxygen saturation 2022-12-12 99 /min [facility] in Arterial blood 16:45:00 [facility] Pulse oxim[facility] Systolic blood 2022-12-12 135 mm[Hg] University of pressure 16:11:00 [facility] Diastolic blood 2022-12-12 80 mm[Hg] University o f pressure 16:11:00 [facility] Heart rate 2022-12-12 77 /min University of 16:11:00 [facility] Body temperature 2022-12-12 35.89 Tia University of 16:11:00 [facility] Body weight 2022-12-12 65 kg University of 08:50:00 [facility] BMI 2022-12-12 20.56 kg/m2 University of 08:50:00 [facility] Body height 2022-12-11 177.8 cm University of 04:23:00 [facility] Heart rate 2022-12-04 95 /min University of 12:33:00 [facility] Respiratory rate 2022-12-04 17 /min University of 12:33:00 [facility] Oxygen saturation 2022-12-04 98 /min University of in Arterial blood 12:33:00 [facility] by Pulse oximetry Branch Systolic blood 2022-12-04 125 mm[Hg] University of pressure 12:20:00 [facility] Diastolic blood 2022-12-04 74 mm[Hg] University o f pressure 12:20:00 [facility] Body temperature 2022-12-04 36.61 Tia University of 12:20:00 [facility] Body height 2022-12-02 177.8 cm University of 05:16:00 [facility] Body weight 2022-12-02 72.576 kg University of 05:16:00 [facility] BMI 2022-12-02 22.96 kg/m2 University of 05:16:00 [facility] Systolic blood 2022-12-01 114 mm[Hg] University of pressure 13:00:00 [facility] Diastolic blood 2022-12-01 78 mm[Hg] University o f pressure 13:00:00 [facility] Heart rate 2022-12-01 88 /min University of 13:00:00 [facility] Respiratory rate 2022-12-01 20 /min University of 13:00:00 [facility] Oxygen saturation 2022-12-01 98 /min [facility] in Arterial blood 13:00:00 [place] [facility] Pulse oxim[facility] Body temperature 2022-12-01 36.67 Tia University of 10:13:00 [facility] Body height 2022-12-01 177.8 cm University of 10:13:00 [facility] Body weight 2022-12-01 72.576 kg University of 10:13:00 [facility] BMI 2022-12-01 22.96 kg/m2 University of 10:13:00 [facility] Systolic blood 2022-11-28 154 mm[Hg] University of pressure 17:00:00 [facility] Diastolic blood 2022-11-28 106 mm[Hg] University o f pressure 17:00:00 [facility] Heart rate 2022-11-28 87 /min University of 17:00:00 [facility] Respiratory rate 2022-11-28 23 /min University of 17:00:00 [facility] Oxygen saturation 2022-11-28 96 /min University of in Arterial blood 17:00:00 [facility] by Pulse oximetry Branch Body temperature 2022-11-28 36.78 Tia University of 16:00:00 [facility] Body weight 2022-11-27 67.132 kg University of 12:00:00 [facility] BMI 2022-11-27 21.24 kg/m2 University of 12:00:00 [facility] Body height 2022-11-27 177.8 cm University of 08:39:00 [facility] Systolic blood 2022-11-19 152 mm[Hg] [facility] of pressure 10:48:00 [facility] Diastolic blood 2022-11-19 88 mm[Hg] University o f pressure 10:48:00 [facility] Heart rate 2022-11-19 92 /min University of 10:48:00 [facility] Respiratory rate 2022-11-19 16 /min University of 10:48:00 [facility] Oxygen saturation 2022-11-19 98 /min [facility] of in Arterial blood 10:48:00 [place] [facility] Pulse oximetry [facility] Body temperature 2022-11-19 36.22 Tia University of 08:20:00 [facility] Body height 2022-11-19 177.8 cm University of 08:20:00 [facility] Body weight 2022-11-19 67.132 kg University of 08:20:00 [facility] BMI 2022-11-19 21.24 kg/m2 University of 08:20:00 [facility] Systolic blood 2022-11-19 152 mm[Hg] University of pressure 02:18:57 [facility] Diastolic blood 2022-11-19 91 mm[Hg] University o f pressure 02:18:57 [facility] Heart rate 2022-11-19 109 /min University of 02:18:57 [facility] Respiratory rate 2022-11-19 22 /min University of 02:18:57 [facility] Oxygen saturation 2022-11-19 95 /min University of in Arterial blood 02:18:57 [place] [facility] Pulse oximetry [facility] Body temperature 2022-11-19 36.78 Tia University of 02:17:11 [facility] Body height 2022-11-19 177.8 cm University of 00:52:00 [facility] Body weight 2022-11-19 67.132 kg University of 00:52:00 [facility] BMI 2022-11-19 21.24 kg/m2 University of 00:52:00 [facility] Heart rate 2022-11-11 75 /min University of 17:35:00 [facility] Respiratory rate 2022-11-11 18 /min University of 17:35:00 [facility] Oxygen saturation 2022-11-11 95 /min [facility] of in Arterial blood 17:35:00 [place] [facility] Pulse oximetry [facility] Systolic blood 2022-11-11 130 mm[Hg] University of pressure 17:25:00 [facility] Diastolic blood 2022-11-11 71 mm[Hg] University o f pressure 17:25:00 [facility] Body temperature 2022-11-11 35.94 Tia University of 17:25:00 [facility] Body weight 2022-11-11 77.52 kg University of 09:34:00 [facility] BMI 2022-11-11 24.52 kg/m2 University of 09:34:00 [facility] Body height 2022-11-09 177.8 cm University of 19:30:00 [facility] Systolic blood 2020-12-29 96 mm[Hg] University of pressure 15:24:00 [facility] Diastolic blood 2020-12-29 66 mm[Hg] University o f pressure 15:24:00 [facility] Heart rate 2020-12-29 71 /min University of 15:24:00 [facility] Body temperature 2020-12-29 36.33 Tia University of 15:24:00 [facility] Body weight 2020-12-29 72.576 kg University of 15:24:00 [facility] BMI 2020-12-29 22.96 kg/m2 University of 15:24:00 [facility] Oxygen saturation 2020-12-29 95 /min University of in Arterial blood 15:24:00 [facility] by Pulse oximetry Branch Systolic blood 2020-12-18 117 mm[Hg] University of pressure 19:07:00 [facility] Diastolic blood 2020-12-18 77 mm[Hg] University o f pressure 19:07:00 [facility] Heart rate 2020-12-18 77 /min University of 19:07:00 [facility] Body temperature 2020-12-18 36.22 Tia University of 19:07:00 [facility] Respiratory rate 2020-12-18 18 /min University of 19:07:00 [facility] Body height 2020-12-18 177.8 cm University of 19:07:00 [facility] Body weight 2020-12-18 73.211 kg University of 19:07:00 [facility] BMI 2020-12-18 23.16 kg/m2 University of 19:07:00 [facility] Systolic blood 2020-12-12 109 mm[Hg] University of pressure 18:00:00 [facility] Diastolic blood 2020-12-12 74 mm[Hg] University o f pressure 18:00:00 [facility] Heart rate 2020-12-12 78 /min University of 18:00:00 [facility] Respiratory rate 2020-12-12 20 /min University of 18:00:00 [facility] Oxygen saturation 2020-12-12 96 /min University of in Arterial blood 18:00:00 [facility] by Pulse oximetry Branch Body temperature 2020-12-12 37.28 Tia University of 16:33:00 [facility] Body height 2020-12-12 177.8 cm University of 16:33:00 [facility] Body weight 2020-12-12 70.308 kg University of 16:33:00 [facility] BMI 2020-12-12 22.24 kg/m2 University of 16:33:00 [facility] Systolic blood 2020-12-08 125 mm[Hg] University of pressure 18:55:00 [facility] Diastolic blood 2020-12-08 82 mm[Hg] University o f pressure 18:55:00 [facility] Heart rate 2020-12-08 75 /min University of 18:55:00 [facility] Body temperature 2020-12-08 36.56 Tia University of 18:55:00 [facility] Respiratory rate 2020-12-08 16 /min University of 18:55:00 [facility] Body height 2020-12-08 177.8 cm University of 18:55:00 [facility] Body weight 2020-12-08 73.12 kg University of 18:55:00 [facility] BMI 2020-12-08 23.13 kg/m2 University of 18:55:00 [facility] Systolic blood 2019-05-04 127 mm[Hg] University of pressure 04:21:00 [facility] Diastolic blood 2019-05-04 86 mm[Hg] University o f pressure 04:21:00 [facility] Heart rate 2019-05-04 99 /min University of 04:21:00 [facility] Respiratory rate 2019-05-04 26 /min University of 04:21:00 [facility] Body height 2019-05-04 177.8 cm [place] of 04:21:00 [facility] Body weight 2019-05-04 72.576 kg [place] of 04:21:00 [facility] BMI 2019-05-04 22.96 kg/m2 University of 04:21:00 [facility] Oxygen saturation 2019-05-04 99 /min University in Arterial blood 04:21:00 [facility] Pulse oximetry Branch Systolic blood 2019-05-04 127 mm[Hg] University of pressure 04:21:00 [facility] Diastolic blood 2019-05-04 86 mm[Hg] University o f pressure 04:21:00 [facility] Heart rate 2019-05-04 99 /min University of 04:21:00 [facility] Respiratory rate 2019-05-04 26 /min University of 04:21:00 [facility] Body height 2019-05-04 177.8 cm University of 04:21:00 [facility] Body weight 2019-05-04 72.576 kg University of 04:21:00 [facility] BMI 2019-05-04 22.96 kg/m2 [facility] 04:21:00 [facility] Oxygen saturation 2019-05-04 99 /min [facility] Arterial blood 04:21:00 [facility] by Pulse oximetry Branch Procedures Procedure Date / Time Performing Clinician Source Performed CONSENT/REFUSAL FOR 2023-03-01 19:49:30 Doctor Unassigned, No [facility] DIAGNOSIS AND TREATMENT Name [facility] TRANSTHORACIC ECHO (TTE) 2023-02-16 13:56:56 Dedrick Toth [facility] COMPLETE W/ CONTRAST Medical Bra nch TROPONIN I 2023-02-16 11:32:00 Dedrick Toth [facility] COMP. METABOLIC PANEL 2023-02-16 11:32:00 Dedrick Toth [facility] ([id number]) [facility] CBC WITH DIFF 2023-02-16 11:32:00 Dedrick Toth [facility] N-TERMINAL PRO-BNP 2023-02-16 11:32:00 Dedrick Toth [facility] URINALYSIS 2023-02-15 21:18:00 Francisca Bryant [facility] HB ECG ROUTINE & RHYTHM 2023-02-15 20:15:35 Francisca Bryant [facility] XR CHEST 1 VW 2023-02-15 20:14:30 Francisca Bryant [facility] AC PANEL 21 + LACTIC 2023-02-15 20:02:00 Francisca Bryant [facility] ACID [facility] MAGNESIUM 2023-02-15 20:01:00 Francisca Bryant [facility] TROPONIN I 2023-02-15 20:01:00 Francisca Bryant [facility] COMP. METABOLIC PANEL 2023-02-15 20:01:00 Francisca Bryant [facility] ([id number]) [facility] CBC WITH DIFF 2023-02-15 20:01:00 Francisca Bryant [facility] ASSIGNMENT OF BENEFITS 2023-02-07 19:52:07 Doctor Unassigned, No [facility] CONSENT/REFUSAL FOR 2023-02-07 19:51:03 Doctor Unassigned, No [facility] [place] [facility] Name [facility] CONSENT/REFUSAL FOR 2023-02-04 19:51:56 Doctor Unassigned, No [facility] [place] DIAGNOSIS AND TREATMENT Name [facility] TROPONIN I 2023-01-31 20:21:00 [facility]ie [facility] COMP. METABOLIC PANEL 2023-01-31 20:21:00 [id number] ETHANOL 2023-01-31 20:21:00 Kristie [facility] CBC WITH DIFF 2023-01-31 20:21:00 Kristie [facility] N-TERMINAL PRO-BNP 2023-01-31 20:21:00 Rachael Flowers [facility] CONSENT/REFUSAL FOR 2023-01-31 18:39:05 Doctor Unassigned, No [facility] [place] DIAGNOSIS AND TREATMENT Name [facility] CONSENT/REFUSAL FOR 2023-01-31 15:54:08 Doctor Unassigned, No [facility] [place] DIAGNOSIS AND TREATMENT Name [facility] CONSENT/REFUSAL FOR 2023-01-31 14:29:18 Doctor Unassigned, No [facility] [place] DIAGNOSIS AND TREATMENT Name [facility] ACUTE CARE VENOUS BLOOD 2023-01-27 10:45:00 Bessie Oswald [facility] GAS [facility] TROPONIN I 2023-01-27 10:16:00 Bessie Oswald [facility] BASIC METABOLIC PANEL 2023-01-27 10:16:00 Bessie Oswald [facility] (NA, K, CL, CO2, Medical Branch GLUCOSE, BUN, CREATININE, CA) CBC WITH DIFF 2023-01-27 10:16:00 Bessie Oswald [facility] N-TERMINAL PRO-BNP 2023-01-27 10:16:00 Bessie Oswald [facility] URINALYSIS 2023-01-24 20:23:00 Stephanie Almonte [facility] CT HEAD WO CONTRAST 2023-01-24 19:38:00 Stephanie Almonte [facility] AC ABG + LACTIC ACID 2023-01-24 18:37:00 Stephanie Almonte [facility] AMMONIA, PLASMA 2023-01-24 18:19:00 Stephanie Almonte [facility] RAPID STREP SCREEN FOR 2023-01-24 18:19:[address] [facility] GROUP A [facility] COVID-19 (ID NOW RAPID 2023-01-24 18:19:[address] [facility] TESTING) Medical Branch TROPONIN I 2023-01-24 17:52:00 Stephanie Almonte [facility] COMP. METABOLIC PANEL 2023-01-24 17:52:00 Stephanie Almonte [facility] ([id number]) Medical Branch ETHANOL 2023-01-24 17:52:00 Stephanie Almonte [facility] CBC WITH DIFF 2023-01-24 17:52:00 Stephanie Almonte [facility] N-TERMINAL PRO-BNP 2023-01-24 17:52:00 Stephanie Almonte [facility] COMP. METABOLIC PANEL 2023-01-21 20:58:00 Louis Hong [facility] ([id number]) [facility] TROPONIN I 2023-01-21 20:05:00 Singer [facility] CBC WITH DIFF 2023-01-21 20:05:00 Singer [facility] N-TERMINAL PRO-BNP 2023-01-21 20:05:00 Louis Hong [facility] AC PANEL 21 + LACTIC 2023-01-19 08:31:00 Jaymie Hacketthosh [facility] ACID [facility] D-DIMER 2023-01-19 08:17:00 Lew [facility] BASIC METABOLIC PANEL 2023-01-19 08:15:00 Iza Varma [facility] (NA, K, CL, CO2, Medical Branch GLUCOSE, BUN, CREATININE, CA) CBC WITH DIFF 2023-01-19 08:15:00 Iza Varma [facility] N-TERMINAL PRO-BNP 2023-01-19 08:15:00 Agapito Hackett [facility] EKG-12 LEAD 2023-01-17 12:23:30 Marisol Devlin [facility] XR CHEST 1 VW 2023-01-17 11:25:05 Marisol Devlin [facility] TROPONIN I 2023-01-17 11:04:00 Marisol Devlin [facility] COMP. METABOLIC PANEL 2023-01-17 11:04:00 Marisol Devlin [facility] ([id number]) [facility] CBC WITH DIFF 2023-01-17 11:04:00 Marisol Devlin [facility] N-TERMINAL PRO-BNP 2023-01-17 11:04:00 Marisol Devlin [facility] COMP. METABOLIC PANEL 2022-12-26 17:23:00 Iza Varma [facility] ([id number]) Medical [place] XR CHEST 1 VW 2022-12-26 16:39:21 Iza Varma [facility] URINE DRUG (IMMUNOASSAY) 2022-12-26 16:29:00 Iza Varma [facility] SCREEN URINALYSIS 2022-12-26 16:29:00 Iza Varma [facility] CBC WITH DIFF 2022-12-26 16:28:00 Iza Varma [facility] MAGNESIUM 2022-12-12 08:55:00 [facility] 2022-12-12 08:55:00 [facility] (NA, K, CL, CO2, Medical Branch GLUCOSE, BUN, CREATININE, CA) LIPID PANEL 2022-12-12 08:55:00 [facility] ([id number])(TOTAL Medical Branch CHOLESTEROL, TRIGLYCERIDES, HDL) N-TERMINAL PRO-BNP 2022-12-12 08:55[facility] 2022-12-11 08:30:00 Dedrick Toht [facility] OSMOLALITY, SERUM OR 2022-12-11 08:30:00 Dedrick Toth [facility] FREE T4 2022-12-11 08:30:00 Dedrick Toth [facility] BASIC METABOLIC PANEL 2022-12-11 08:30:00 Dedrick Toth [facility] (NA, K, CL, CO2, [facility] GLUCOSE, BUN, CREATININE, CA) CBC WITH DIFF 2022-12-11 08:30:00 Dedrick Toth [facility] N-TERMINAL PRO-BNP 2022-12-11 08:30:00 Dedrick Toth [facility] OSMOLALITY URINE 2022-12-11 03:24:00 Dedrick Toth [facility] SODIUM, URINE RANDOM 2022-12-11 03:24:00 Dedrick Toth [facility] URINALYSIS 2022-12-11 01:15:00 Singer [facility] HB ECG ROUTINE & RHYTHM 2022-12-11 00:38:04 Singer [facility] CT HEAD WO CONTRAST 2022-12-11 00:32:23 Louis Hong [facility] XR CHEST 1 VW 2022-12-11 00:29:20 Singer [facility] TROPONIN I 2022-12-11 00:08:00 Singer [facility] COMP. METABOLIC PANEL 2022-12-11 00:08:00 Louis Hong [facility] ([id number]) Medical Branch ETHANOL 2022-12-11 00:08:00 Singer [facility] CBC WITH DIFF 2022-12-11 00:08:00 Singer [facility] N-TERMINAL PRO-BNP 2022-12-11 00:08:00 Singer [facility] LACTIC ACID WHOLE BLOOD 2022-12-11 00:03:00 Louis Hong [facility] AUTHORIZATION FOR 2022-12-09 05:01:00 Doctor Unassigned, No [facility] RELEASE OF [facility] BASIC METABOLIC PANEL 2022-12-04 10:43:00 [facility] ([facility], [facility], CL, CO2, Medical Branch GLUCOSE, BUN, CREATININE, CA) CBC WITH DIFF 2022-12-04 10:43:00 Ben [facility] OSMOLALITY URINE 2022-12-03 17:05:00 Sudhakar De [facility] SODIUM, URINE RANDOM 2022-12-03 17:05:00 Juan MiguelSudhakar hardy [facility] 2022-12-03 10:20[facility]00 [facility] 2022-12-03 10:20:00 [facility] (NA, K, CL, CO2, Medical Branch GLUCOSE, BUN, CREATININE, CA) CBC WITH DIFF 2022-12-03 10:20:00 [facility] MET[facility]OLIC PANEL 2022-12-02 05:27:00 [facility] (NA, K, CL, CO2, [facility] Branch GLUCOSE, BUN, CREATININE, CA) CONSENT/REFUSAL FOR 2022-12-02 05:08:30 Doctor Unassigned, No [facility] DIAGNOSIS AND TREATMENT [facility] HOSPITAL ADMISSION 2022-12-02 05:01:00 Doctor Unassigned, No [facility] COVID-19 (ID NOW RAPID 2022-12-01 13:01:00 Ernesto Piper [facility] TESTING) Medical Branch XR CHEST 1 VW 2022-12-01 12:40:25 Marisol Devlin [facility] EKG-12 LEAD 2022-12-01 12:17:26 Marisol Devlin [facility] ACUTE CARE ARTERIAL 2022-12-01 12:06:00 Marisol Devlin [facility] BLOOD GAS Medical Branch TROPONIN I 2022-12-01 11:51:00 Marisol Devlin [facility] BASIC METABOLIC PANEL 2022-12-01 11:51:00 Marisol Devlin [facility] (NA, K, CL, CO2, Medical Branch GLUCOSE, BUN, CREATININE, CA) CBC WITH DIFF 2022-12-01 11:51:00 Marisol Devlin [facility] BASIC METABOLIC PANEL 2022-11-28 16:51:00 Leila Chapa [facility] (NA, K, CL, CO2, Medical Branch GLUCOSE, BUN, CREATININE, CA) URIC ACID 2022-11-28 08:14:00 [facility] 2022-11-28 08:14:00 [facility] BASIC METABOLIC PANEL 2022-11-28 08:14:00 Leila Chapa [facility] (NA, K, CL, CO2, Medical Branch GLUCOSE, BUN, CREATININE, CA) CBC WITH DIFF 2022-11-28 08:14:00 María Diaz [facility] BASIC METABOLIC PANEL 2022-11-28 04:16:00 María Diaz [facility] (NA, K, CL, CO2, Medical Branch GLUCOSE, BUN, CREATININE, CA) BASIC METABOLIC PANEL 2022-11-28 00:33:00 Leila Chapa [facility] (NA, K, CL, CO2, Medical Branch GLUCOSE, BUN, CREATININE, CA) BASIC METABOLIC PANEL 2022-11-27 19:55:00 María Diaz [facility] (NA, K, CL, CO2, Medical Branch GLUCOSE, BUN, CREATININE, CA) MRSA / MSSA SCREEN BY 2022-11-27 09:21:00 María Diaz [facility] PCR, NARES [facility] OSMOLALITY, SERUM OR 2022-11-27 09:10:00 María Diza [facility] PLASMA [facility] OSMOLALITY URINE 2022-11-27 09:04:00 María Diaz [facility] BASIC METABOLIC PANEL 2022-11-27 09:04:00 María Diaz [facility] (NA, K, CL, CO2, Medical Branch GLUCOSE, BUN, CREATININE, CA) URINE DRUG (IMMUNOASSAY) 2022-11-27 09:04:00 María Diaz [facility] SCREEN URINALYSIS 2022-11-27 09:04:00 María Diaz [facility] CREATININE, URINE RANDOM 2022-11-27 09:04:00 María Diaz [facility] SODIUM, URINE RANDOM 2022-11-27 09:04:00 María Diaz [facility] XR CHEST 1 VW 2022-11-27 06:15:54 Bessie Oswald [facility] MAGNESIUM 2022-11-27 05:33:00 María Diaz [facility] TROPONIN I 2022-11-27 05:33:00 Bessie Oswald [facility] COMP. METABOLIC PANEL 2022-11-27 05:33:00 Bessie Oswald [facility] ([id number]) Medical Branch ETHANOL 2022-11-27 05:33:00 Bessie Oswald [facility] CBC WITH DIFF 2022-11-27 05:33:00 Bessie Oswald [facility] GLYCOSYLATED HEMOGLOBIN 2022-11-27 05:33:00 Leila Chapa [facility] (A1C) [facility] N-TERMINAL PRO-BNP 2022-11-27 05:33:00 Bessie Oswald [facility] HB ECG ROUTINE & RHYTHM 2022-11-27 05:31:54 Bessie Oswald [facility] STRIP [facility] COMP. METABOLIC PANEL 2022-11-19 08:44:00 Iza Varma [facility] ([id number]) [facility] CBC WITH DIFF 2022-11-19 08:44:00 Iza Varma [facility] N-TERMINAL PRO-BNP 2022-11-19 08:44:00 Iza Varma [facility] BASIC METABOLIC PANEL 2022-11-11 10:52:00 Iza Eden [facility] (NA, K, CL, CO2, Medical Branch GLUCOSE, BUN, CREATININE, CA) CBC WITH DIFF 2022-11-11 10:52:00 Iza Eden [facility] BASIC METABOLIC PANEL 2022-11-11 02:16:00 [facility] (NA, K, CL, CO2, Medical Branch GLUCOSE, BUN, CREATININE, CA) BASIC METABOLIC PANEL 2022-11-10 22:45:00 [facility] (NA, K, CL, CO2, Medical Branch GLUCOSE, BUN, CREATININE, CA) BASIC METABOLIC PANEL 2022-11-10 17:27:00 [facility], [facility], CL, CO2, [facility] GLUCOSE, BUN, CREATININE, CA) BASIC METABOLIC PANEL 2022-11-10 11:49:00 [facility] (NA, K, CL, CO2, Medical Branch GLUCOSE, BUN, CREATININE, CA) MAGNESIUM 2022-11-10 07:14:00 Travis Zeng [facility] BASIC METABOLIC PANEL 2022-11-10 07:14:00 [facility] (NA, K, CL, CO2, Medical Branch GLUCOSE, BUN, CREATININE, CA) CBC WITH DIFF 2022-11-10 07:14:00 [facility] XR CHEST 1 VW 2022-11-09 07:53:00 Marisol Devlin [facility] LIPASE 2022-11-09 07:53:00 Marisol Devlin [facility] TROPONIN I 2022-11-09 07:53:00 Marisol Devlin [facility] COMP. METABOLIC PANEL 2022-11-09 07:53:00 Marisol Devlin [facility] ([id number]) Medical Branch CBC WITH DIFF 2022-11-09 07:53:00 Marisol Devlin [facility] N-TERMINAL PRO-BNP 2022-11-09 07:53:00 Marisol Devlin [facility] ACUTE CARE ARTERIAL 2022-11-09 07:50:00 Marisol Devlin [facility] BLOOD GAS Medical Branch HB ECG ROUTINE & RHYTHM 2022-11-09 07:39:47 Marisol Devlin [facility] Medical [place] ASSIGNMENT OF BENEFITS 2021-05-20 19:26:54 Doctor Unassigned, No [facility] POCT URINALYSIS AUTO 2020-12-18 19:04:00 Gokul Turner [facility] CT ABDOMEN PELVIS W 2020-12-12 17:25:03 Francisca Bryant [facility] CONTRAST [facility] BASIC METABOLIC PANEL 2020-12-12 16:47:00 Francisca Bryant [facility] (NA, K, CL, CO2, Medical Branch GLUCOSE, BUN, CREATININE, CA) CBC WITH DIFF 2020-12-12 16:47:00 Francisca Bryant [facility] URINALYSIS 2020-12-12 16:47:00 Francisca Bryant [facility] NOTICE OF PRIVACY 2020-12-12 16:28:57 Doctor Unassigned, No [facility] Medical Branch CONSENT/REFUSAL FOR 2020-12-12 16:28:23 Doctor Unassigned, No [facility] [place] [facility] POCT URINALYSIS AUTO 2020-12-08 18:56:00 Jeanette Mcdaniel [facility] Medical [place] CONSENT/REFUSAL FOR 2020-12-08 18:26:17 Doctor Unassigned, No [facility] [place] DI[facility] TREATMENT Name Medical Branch ASSIGNMENT OF BENEFITS 2020-12-08 18:25:58 Doctor Unassigned, No [facility] Medical Branch AUTHORIZATION FOR 2020-02-20 05:01:00 Doctor Unassigned, No [facility] RELEASE OF [facility] Medical Branch NOTICE OF PRIVACY 2019-05-04 04:10:29 Doctor Unassigned, No [facility] Medical Branch CONSENT/REFUSAL FOR 2019-05-04 04:10:09 Doctor Unassigned, No [facility] [place] [facility]NOS[facility] AND TREATMENT Name Medical Branch Encounters Start End Encounter Admission Attending Care Care Encounter Source Date/Time Date/Time Type Type Clinicians Facility Department ID 2021-07-19 Emergency [facility] [id number] Univers 08:46:33 ity of [facility] 2023-03-01 2023-03-01 Office Adriano [facility] 1.2.840.114 [id number] Univers 16:30:00 17:00:00 [facility] 350.1.13.10 it y of [place] 4.2.7.2.686 [place] as JACKIE?BLEA [id number] [facility] [address] [place] MEDICAL OFFICE [facility] 2023-03-01 2023-03-01 Outpatient R ADRIANO [facility] [id number] Univers 16:30:00 16:30:00 HERMINIA ity [facility] 2023-03-01 2023-03-01 Orders Doctor ELDER 1.2.840.114 [id number] Univers 00:00:00 00:00:00 Only Unassigned, ASHER 350.1.13.10 ity of [place] [facility] 4.2.7.2.686 [place] as [id number] [facility] [address] [place] 2023-03-01 2023-03-01 Chantelle Goodwin [facility] 1.2.840.114 10 [id number] Univers 00:00:00 00:00:00 , [facility] 350.1.13.10 ity of Haley DERAS 4.2.7.2.686 [place] as JACKIE?BLEA [id number] Ak sreekanth ALBRIGHT [address] [place] MEDICAL OFFICE [facility] 2023-02-21 2023-02-21 Transition GARY Frye 1.2.840.114 [id number] Univers 00:00:00 00:00:00 of Care Taylor SHAIKH 350.1.13.10 it y of [place] [id number] [facility] [address] [place] 2023-02-15 2023-02-18 Inpatient X KARRI [facility] [place] [id number] Univers 14:41:00 16:11:00 TRAVIS ity [facility] 2023-02-15 2023-02-18 Hospital Iza Varma [facility] 1.2.840.11 4 [id number] Univers 14:41:00 16:11:00 Encounter Francisca Bryant 350.1.13 .10 ity of [facility] 4.2.7.2.686 [facility] [id number] [address] 2023-02-07 2023-02-07 Emergency X NORMAN [facility] ERT [id number] Univers 14:30:00 16:01:[address] [facility] 2023-02-07 2023-02-07 Emergency [facility] 1.2.840.114 [id number] Univers 14:30:00 16:01:00 Pradip DERAS 350.1.13.10 ity [facility] 4.2.7.2.686 [facility] [id number] [address] 2023-02-07 2023-02-07 Outpatient R CARL ORLANDO [facility] [id number] Univers 10:20:00 10:20:[address] [facility] 2023-02-05 2023-02-05 Emergency [facility] ERT [id number] Univers 14:53:00 16:10:[address] [facility] 2023-02-05 2023-02-05 Emergency [facility] 1.2.722.188 [id number] Univers 14:53:00 16:10:00 Herminia DERAS 350.1.13.10 i ty of [facility] 4.2.7.[address] [place] [phone] 2023-02-04 2023-02-04 Emergency [facility] ERT [id number] Univers 15:26:00 16:25:00 FRANCISCA judge [facility] 2023-02-04 2023-02-04 Emergency [facility] 1.2.840.114 10 [id number] Univers 15:26:00 16:25:00 Francisca DERAS 350.1.13.10 ity of [facility] 4.2.7.2.686 [facility] [id number] [address] 2023-02-03 2023-02-03 Emergency X SINGER [facility] ERT [id number] Univers 17:46:00 18:47:00 LOUIS judge [facility] 2023-02-03 2023-02-03 Emergency X [facility] ERT [id number] Univers 17:46:00 18:47:00 LOUIS judge [facility] 2023-02-03 2023-02-03 Emergency Singer [facility] 1.2.222.467 [id number] Univers 17:46:00 18:47:00 Louis DERAS 350.1.13.10 i ty of [place] 4.2.7.2.686 [facility] [id number] [address] 2023-02-03 2023-02-03 Emergency Ja[facility]ina[facility] 1.2.155.186 [id number] Univers 12:43:00 15:04:00 Bessie DERAS 350.1.13.10 i ty of [place] 4.2.7.2.686 [facility] [id number] [address] 2023-02-02 2023-02-02 Emergency X [facility] ERT [id number] Univers 16:49:00 18:10:00 L[place] judge [facility] 2023-02-02 2023-02-02 Emergency [facility] 1.2.645.497 [id number] Univers 16:49:00 18:10:00 Louis DERAS 350.1.13.10 i ty of [place] 4.2.7.2.686 [facility] [id number] [address] 2023-01-31 2023-01-31 Emergency X KRISTIE, [facility] ERT [id number] Univers 13:55:00 16:50:00 RACHAEL judge [facility] 2023-01-31 2023-01-31 Emergency X KRISTIE, [facility] ERT [id number] Univers 13:55:00 16:50:00 RACHAEL judge [facility] 2023-01-31 2023-01-31 Emergency Kristie, [facility] 1.2.840.114 10 [id number] Univers 13:55:00 16:50:00 Rachael OGLESBYRADHA 350.1.13.10 i ty of [place] 4.2.7.2.686 [facility] [id number] [address] 2023-01-31 2023-01-31 Emergency X SRAVAN, [facility] ERT [id number] Univers 11:11:00 12:12:00 LEOBARDO ity [facility] 2023-01-31 2023-01-31 Emergency Vasrenetta, [facility] 1.2.397.030 [id number] Univers 11:11:00 12:12:00 Leobardo DERAS 350.1.13.10 i ty of [place] 4.2.7.2.[address] [place] [id number] 2023-01-31 2023-01-31 Emergency [facility] 1.2.466.868 [id number] Univers 09:51:00 10:16:00 BRAEDEN 350.1.13.10 i ty of [facility] 4.2.7.2.[address] [place] [id number] 2023-01-29 2023-01-29 Emergency X MARQUIS, [facility] ERT [id number] Univers 08:08:00 10:00:[address] [facility] 2023-01-29 2023-01-29 Emergency [facility] 1.2.299.223 [id number] Univers 08:08:00 10:00:00 Herminia DERAS 350.1.13.10 i ty of [facility] 4.2.7.2.[address] [place] [id number] 2023-01-27 2023-01-27 Emergency X [facility] ERT [id number] Univers 04:50:00 07:03:00 BESSIE judge [facility] 2023-01-27 2023-01-27 Emergency [facility] 1.2.207.273 [id number] Univers 04:50:00 07:03:00 Bessie DERAS 350.1.13.10 i ty of [facility] 4.2.7.2.[address] [place] [id number] 2023-01-27 2023-01-27 Telephone [facility] 1.2.884.370 [id number] Univers 00:00:00 00:00:00 Nomi DERAS 350.1.13.10 i ty of [facility] 4.2.7.2.686 [facility] [id number] [facility] [address] 2023-01-24 2023-01-24 Emergency X [facility] ERT [id number] Univers 12:28:00 16:16:00 STEPHANIE judge [facility] 2023-01-24 2023-01-24 Emergency [facility] 1.2.900.992 [id number] Univers 12:28:00 16:16:00 Stephanie DERAS 350.1.13.10 i ty of [facility] 4.2.7.2.686 [facility] [id number] [address] 2023-01-23 2023-01-23 Emergency X [facility] ERT [id number] Univers 19:02:00 20:36:00 IZA deepa [facility] 2023-01-23 2023-01-23 Emergency [facility] 1.2.195.154 [id number] Univers 19:02:00 20:36:00 Iza DERAS 350.1.13.10 i ty of [facility] 4.2.7.2.686 [facility] [id number] [address] 2023-01-22 2023-01-22 Emergency X [facility] ERT [id number] Univers 18:24:00 19:55:00 IZA deepa [facility] 2023-01-22 2023-01-22 Emergency [facility] 1.2.347.369 [id number] Univers 18:24:00 19:55:00 Iza DERAS 350.1.13.10 i ty of [facility] 4.2.7.2.686 [facility] [id number] [address] 2023-01-21 2023-01-21 Emergency Sandie [facility] ERT [id number] Univers 14:20:00 18:14:00 LOUIS ity [facility] 2023-01-21 2023-01-21 Emergency [facility] 1.2.082.024 [id number] Univers 14:20:00 18:14:00 Louis DERAS 350.1.13.10 i ty of [facility] 4.2.7.2.686 [facility] [id number] [facility] 084 Branch 2023-01-20 2023-01-20 Transition GARY Frye 1.2.840.114 [id number] Univers 00:00:00 00:00:00 of Care Taylor SHAIKH 350.1.13.10 it y of [place] 4.2.7.2.686 [facility] [id number] [facility] 403 Branch 2023-01-19 2023-01-[address] [facility] 1.2.84 0.114 [id number] Univers 01:15:00 19:40:00 Encounter Iza Varma [place] 350.1.13.10 ity of Agapito Hackett [place] 4.2.7.2.686 [facility] [id number] [address] 2023-01-17 2023-01-17 Emergency X [facility] ERT [id number] Univers 05:57:00 07:37:00 UTADONISLI ity of [facility] 2023-01-17 2023-01-17 [facility] 1.2.566.091 [id number] Univers 05:57:00 07:37:00 Marisol DERAS 350.1.13.10 ity of [facility] 4.2.7.2.686 [facility] [id number] [address] 2023-01-17 2023-01-17 Emergency X [facility] ERT [id number] Univers 05:57:00 07:37:00 KEOLI ity of [facility] 2023-01-10 2023-01-10 Gretchen [facility] 1.2.840.114 [id number] Univers 00:00:00 00:00:00 (Out) [employer] 350.1.13.10 it y of [place] 4.2.7.2.686 [place] as JACKIE?BLEA [id number] Ak sreekanth ALBRIGHT [address] [place] [address] MEDICAL OFFICE BUILDING 2023-01-072023-01-07 Outpatient R ADRIANO [facility] [id number] Univers 14:30:00 15:25:56 HERMINIA tieray [facility] 2023-01-07 2023-01-07 Office [facility] 1.2.840.114 [id number] Univers 14:30:00 15:25:56 [facility] 350.1.13.10 it y of [place] 4.2.7.2.686 [place] as JACKIE?BLEA [id number] Ak sreekanth [place] [address] [place] MEDICAL OFFICE [facility] 2022-12-26 2022-12-26 Emergency X [facility] ERT [id number] Univers 10:50:00 14:12:00 IZA ity [facility] 2022-12-26 2022-12-26 Emergency [facility] 1.2.371.177 [id number] Univers 10:50:00 14:12:00 Iza S [place] 350.1.13.10 i ty of [facility] [place].2.7.2.[place] [id number] [facility] 084 Branch 2022-12-14 2022-12-14 Outpatient R NOMI MARY [facility] [id number] Univers 11:30:00 11:30:00 NOMI MARY i ty of [facility] 2022-12-14 2022-12-14 Transition FryeGARY 1.2.840.114 [id number] Univers 00:00:00 00:00:00 of Mack SHAIKH 350.1.13.10 it y of [place] 4.2.7.2.686 [place] [id number] [facility] 403 Branch 2022-12-10 2022-12-12 Outpatient X KARRI [facility] [id number] Univers 18:49:00 14:35:00 TRAVIS judge [facility] 2022-12-10 2022-12-12 [facility] Louis Hong [facility] 1.2.840.1 14 [id number] Univers 18:49:00 14:35:00 Encounter Dedrick Toth 350.1.13. 10 ity of Travis Zeng 4.2.7.2.686 [facility] [id number] [facility] 081 Branch 2022-12-10 2022-12-10 Case Mathew [facility] 1.2.840.114 [id number] Univers 00:00:00 00:00:00 Management Yenniumair [place] 350.1.13.10 ity of [place] [id number] Ak dical [facility] 085 Branch BUILDING 2022-12-10 2022-12-10 Transition GARY Caro 1.2.840.114 [id number] Univers 00:00:00 00:00:00 of Care Cecy SHAIKH 350.1.13.10 ity of [place] [id number] [facility] 403 [address] 2022-12-09 2022-12-09 Orders Doctor ELDER 1.2.840.114 [id number] Univers 00:00:00 00:00:00 Only Unassigned, ASHER 350.1.13.10 ity of [place] [facility] 4.2.7.2.686 Nelson as [id number] [facility] 009 Branch 2022-12-06 2022-12-06 Transition GARY Frye 1.2.840.114 101 [id number] Univers 00:00:00 00:00:00 of Care Taylor Usman SHAIKH 350.1.13.10 it y [place] [id number] [facility] 403 Branch 2022-12-02 2022-12-04 Hospital Carlo Maki [facility] 1.2.8 40.114 [id number] Univers 00:13:00 12:30:00 Encounter Phatak, Abi HEALTH 350.1.13.10 ity of Clive Contreras 4.2.7.2.686 [facility] [id number] [facility] 110 Branch (CLC) 2022-12-01 2022-12-01 Emergency U ERNESTO PIPER [facility] ERT [id number] Univers 05:32:00 09:08:00 ERNESTO PIPER ity of [facility] 2022-12-01 2022-12-01 Emergency Marisol Devlin [facility] 1.2.840 .114 [id number] Univers 05:32:00 09:08:00 Ernesto Piper [place] 350.1.13.10 ity of Krissy Powers 4.2.7.2.686 [facility] [id number] [place] [address] Branch 2022-12-01 2022-12-01 Emergency U ERNESTO PIPER [facility] ERT [id number] Univers 05:32:00 09:08:[address] [facility] 2022-11-26 2022-11-28 Outpatient X DHARMESH [facility] [place] [id number] Univers 22:55:00 13:50:[address] [facility] 2022-11-26 2022-11-28 [facility] Darek Papi [facility] 1.2.840.11 4 [id number] Univers 22:55:00 13:50:00 Encounter María Diaz 350.1.13.10 ity PatrickraoulLeila 4.2.7.2.686 [facility] [id number] [place] [address] Branch 2022-11-19 2022-11-19 Emergency X AVANI [facility] ERT [id number] Univers 02:17:00 05:12:[address] [facility] 2022-11-19 2022-11-19 Emergency [facility] 1.2.461.658 [id number] Univers 02:17:00 05:12:00 Iza DERAS 350.1.13.10 i ty leti PATHAK 4.2.7.2.686 [facility] [id number] [place] [address] Branch 2022-11-18 2022-11-18 Emergency X MANNY [facility] ERT [id number] Univers 18:52:00 20:29:00 FRANCISCA deepa [facility] 2022-11-18 2022-11-18 Emergency Manny [facility] 1.2.840.114 10 [id number] Univers 18:52:00 20:29:00 Francisca DERAS 350.1.13.10 ity of [place]2.7.2.[place] [id number] [facility] 084 Branch 2022-11-17 2022-11-17 Telephone [facility] 1.2.819.644 [id number] Univers 00:00:00 00:00:00 Nomi DERAS 350.1.13.10 i ty of [facility] 4.2.7.2.[place] [id number] Ak dical NAL 085 [facility] 2022-11-12 2022-11-12 Transition GARY Frye 1.2.840.114 [id number] Univers 00:00:00 00:00:00 of Care Taylor HSAIKH 350.1.13.10 it y of [place].7.2.686 [place] [id number] [facility] 403 Branch 2022-11-09 2022-11-11 Inpatient X KARRI [facility] [id number] Univers 01:32:00 13:35:00 TRAVIS ity of [facility] 2022-11-09 2022-11-11 [facility] 1.2.840. 114 [id number] Univers 01:32:00 13:35:00 Encounter Travis Zeng 350.1.13.10 ity of [facility] 4.2.7.2.[place] [id number] [facility] [address] [place] 2021-05-22 2021-05-22 Telephone [facility] 1.2.476.272 [id number] Univers 00:00:00 00:00:00 Jeanette Deras 350.1.13.10 ity of [place] [id number] Ak dical nal 204 [facility] 2021-05-20 2021-05-20 China Decorator Remington, Anshu Lab Main [facility] 1.2.8 40.114 [id number] Univers 14:28:38 14:43:38 Visit Gokul Tunrer 350.1.13.10 ity of [place] 4.2.7.2.686 [place] Profess[place] [id number] [facility] 353 [facility] 2021-05-20 2021-05-20 [facility] [id number] Univers 14:30:00 14:30:00 [facility] 2021-05-20 2021-05-20 Orders Doctor ELDER 1.2.840.114 [id number] Univers 00:00:00 00:00:00 Only Unassigned, ASHER 350.1.13.10 ity of [place] [facility] 4.2.7.2.686 [place] as [id number] [address] 2021-05-20 2021-05-20 Telephone [facility] 1.2.840.114 [id number] Univers 00:00:00 00:00:00 Gokul Rochelle 350.1.13.10 i ty of [place].2.[place] [id number] [facility] 204 [facility] 2020-12-29 2020-12-29 Office [facility] 1.2.840.114 [id number] Univers 10:12:45 11:07:51 Visit [facility] 350.1.13.10 i ty of [place]2.7.2.[place] Profess[place] [id number] [facility] 204 [facility] 2020-12-29 2020-12-29 Outpatient R YUE [facility] [id number] Univers 10:15:00 10:15:00 [facility] 2020-12-18 2020-12-18 Office Yue [facility] 1.2.840.114 [id number] Univers 13:36:17 14:58:35 Visit Rm, Adc Surg Spec Procedure Rochelle 3 50.1.13.10 ity of [place].2.7.2.[place] [id number] [facility] 204 [facility] 2020-12-18 2020-12-18 Outpatient R YUE [facility] [id number] Univers 14:00:00 14:00:00 [facility] 2020-12-16 2020-12-16 Outpatient R GRAMM, [facility] [id number] Univers 00:00:00 00:00:00 JEANETTE judge of [facility] 2020-12-16 2020-12-16 Telephone [facility] 1.2.269.846 [id number] Univers 00:00:00 00:00:00 Jeanette Deras 350.1.13.10 ity of [place].7.2.[place] [phone] Ak dical [address] 2020-12-12 2020-12-12 Emergency [facility] 1.2.840.114 [id number] Univers 11:36:00 13:42:00 Francisca Deras 350.1.13.10 ity of [place].2.7.2.686 [place] [id number] [facility] [address] [place] [address] 2020-12-12 2020-12-12 Telephone [facility] 1.2.734.138 [id number] Univers 00:00:00 00:00:00 Jeanette Deras 350.1.13.10 ity of [place] 4[place].7.2.686 [place] [id number] Ak dical nal [address] [place] [address] 2020-12-08 2020-12-08 Office [facility] 1.2.840.114 [id number] Univers 13:28:10 14:09:14 Visit Jeanette Deras 350.1.13.10 ity of [place] 4.2.7.2.686 [place] [phone] Ak dical [address] 2020-12-08 2020-12-08 Outpatient R [facility], [facility] [id number] Univers 13:30:00 13:30:00 JEANETTE judge of [facility] 2020-12-08 2020-12-08 Orders Doctor ELDER 1.2.840.114 [id number] Univers 00:00:00 00:00:00 Only Unassigned, ASHER 350.1.13.10 ity of [place] [facility] 4.2.7.2.686 Nelson as [id number] [facility] [address] [place] 2020-12-072020-12-07 Nurse ELDER Perez 1.2.840.114 [id number] Univers 00:00:00 00:00:00 Triage Herminia STERLING 350.1.13.10 ity of [facility] 4.2.7.2.686 Nelson as [id number] [facility] [address] [place] 2020-06-19 2020-06-19 Outpatient Pepper, [facility] [id number] [facility] 13:30:00 13:30:[address] [facility] 2020-02-20 2020-02-20 Orders Doctor FRIEDMAN 1.2.840.114 [id number] 00:00:00 00:00:00 Only Unassigned, ASHER 350.1.13.10 [place] [facility] 4.2.7.2.686 [id number] 009 2020-02-20 2020-02-20 Orders Doctor FRIEDMAN 1.2.840.114 [id number] Univers 00:00:00 00:00:00 Only Unassigned, ASHER 350.1.13.10 ity of [place] [facility] 4.2.7.2.686 Nelson as [id number] [address] 2019-08-28 2019-08-28 Emergency X [facility] ERT [id number] [employer] 08:25:33 11:54:[address] [facility] 2019-08-24 2019-08-24 Emergency X [facility] ERT [id number] [employer] 01:43:17 03:52:[address] [facility] 2019-05-03 2019-05-04 [facility] [id number] 23:28:18 00:27:00 aRmesh Deras 350.1.13.10 [place] 4.2.7.2.686 [place] [id number] [facility] 2019-05-03 2019-05-04 [facility] [id number] Univers 23:28:18 00:27:00 Ramesh Deras 350.1.13.10 [place] 4[place]2.7.2.[place] [phone] [address] 2019-05-03 2019-05-03 Orders Doctor ELDER 1.2.840.114 [id number] [employer] 00:00:00 00:00:00 Only Unassigned, ASHER 350.1.13.10 ity of [place] [facility] 4.2.7.2.686 [place] as [phone] [address] 2019-05-03 2019-05-03 Orders Doctor ELDER [place]ison.2.840.114 [id number] 00:00:00 00:00:00 Only UnassignedASHER 350.1.13.10 [place] [facility] 4.2.7.2.686 [id number] [id number] Results Test Description Test Time Test Comments Results Result Comments Source TROPONIN I 2023-02-15 21:12:01 Test Item Value Reference Range Interpretation Comme nts TROPONIN I (test code = 9252172511) <=0.034 OMAYRA (test code = OMAYRA) Reference (Normal) Range (defined by the 99th percentile reference limit): <= 0.034 ng/mL Note: Cardiac troponin begins to rise 3-4 hours after the onset of ischemia. Repeat in 4-6 hours if the sample was drawn within 3-4 hours of the onset of the symptom and found normal. Diagnosis of myocardial injury is made with acute changes in cTn concentrations with at least one serial sample above the 99th percentile upper reference limit (URL), taken together with the patient's clinical presentation. Biotin has been reported to cause a negative bias, interpret results relative to patient's use of biotin. Lab Interpretation (test code = Normal 12002-5) [facility]. METABOLIC PANEL ([id number])2023-02-15 21:00:57 Test Item Value Reference Range Interpretation Comments NA (test code = 133 mmol/L 135-145 L 8300510458) K (test code = 4.5 mmol/L 3.5-5.0 0566528016) CL (test code = 90 mmol/L 98-108 L 3530257370) CO2 TOTAL (test code = 40 mmol/L 23-31 H 4811779990) AGAP (test code = 3 2-16 0108666353) BUN (test code = 25 mg/dL 7-23 H 3043902196) GLUCOSE (test code = 107 mg/dL 70-110 5549672328) CREATININE (test code = 0.88 mg/dL 0.60-1.25 8682838501) TOTAL BILI (test code = 1.6 mg/dL 0.1-1.1 H 7786480801) CALCIUM (test code = 8.9 mg/dL 8.6-10.6 7220815973) T PROTEIN (test code = 6.1 g/dL 6.3-8.2 L 5758530602) ALBUMIN (test code = 3.7 g/dL 3.5-5.0 3445115817) ALK PHOS (test code = 56 U/L 34-122 4566535857) ALTv (test code = 14 U/L 5-50 1742-6) AST(SGOT) (test code = 12 U/L 13-40 L 4756868875) eGFR (test code = 87.2 mL/min/1.73m2 5545953439) OMAYRA (test code = OMAYRA) Association of [...] tests). Lab Interpretation Abnormal (test code = 68089-0) [facility] 21:00:57 Test Item Value Reference Range Interpretation Comments MAGNESIUM (test code = 1968700685) 2.0 mg/dL 1.7-2.4 Lab Interpretation (test code = Normal 34127-4) [facility] WITH [id number] 20:53:39 Test Item Value Reference Range Interpretation Comments WBC (test code = 9.03 See_Comment [Automated 6690-2) message] The sy stem which generated this result transmitted reference range : 4.20 - 10.70 10*3/?L. The reference range was not used to interpret this result as normal/abnormal . RBC (test code = 4.50 See_Comment [Automated 789-8) message] The sy stem which generated this result transmitted reference range : 4.26 - 5.52 10*6/?L. The reference range was not used to interpret this result as normal/abnormal . HGB (test code = 14.7 g/dL 12.2-16.4 718-7) HCT (test code = 44.5 % 38.4-49.3 4544-3) MCV (test code = 98.9 fL 81.7-95.6 H 787-2) MCH (test code = 32.7 pg 26.1-32.7 785-6) MCHC (test code = 33.0 g/dL 31.2-35.0 786-4) RDW-SD (test code = 50.1 fL 38.5-51.6 50750-0) RDW-CV (test code = 13.6 % 12.1-15.4 788-0) PLT (test code = 223 See_Comment [Automated 777-3) message] The sy stem which generated this result transmitted reference range : 150 - 328 10*3/ ?L. The reference r pasquale was not used to interpret this result as normal/abnormal . MPV (test code = 12.1 fL 9.8-13.0 76182-9) NRBC/100 WBC (test 0.0 See_Comment [Automat ed code = 2073928106) message] The system which generated this result transmitted reference range : 0.0 - 10.0 /100 WBCs. The refer ence range was not u sed to interpret th is result as normal/abnormal . NRBC x10^3 (test code See_Comment [Auto mated = 8066756567) message] The s ystem which generated this result transmitted reference range : 10*3/?L. The reference range was not used to interpret this result as normal/abnormal . GRAN MAT (NEUT) % 72.8 % (test code = 770-8) IMM GRAN % (test code 0.90 % = 4439009068) LYMPH % (test code = 17.7 % 736-9) MONO % (test code = 7.4 % 5905-5) EOS % (test code = 0.9 % 713-8) BASO % (test code = 0.3 % 706-2) GRAN MAT x10^3(ANC) 6.57 10*3/uL 1.99-6.95 (test code = 6734724042) IMM GRAN x10^3 (test 0.08 10*3/uL 0.00-0.06 H code = 2246110498) LYMPH x10^3 (test code 1.60 10*3/uL 1.09-3.23 = 731-0) MONO x10^3 (test code 0.67 10*3/uL 0.36-1.02 = 742-7) EOS x10^3 (test code = 0.08 10*3/uL 0.06-0.53 711-2) BASO x10^3 (test code 0.03 10*3/uL 0.01-0.09 = 704-7) Lab Interpretation Abnormal (test code = 36972-1) [facility] 21 + LACTIC [id number] 20:11:20 Test Item Value Reference Range Interpretation Comments PH (test code = 7.33 7.32-7.42 6350043296) PCO2 ERVIN (test code = 75 See_Comment H [Auto mated 5314750336) message] The sy stem which generated this result transmitted reference range : 41 - 51 mmHg. The reference range was not used to interpret this result as normal/abnormal . PO2 ERVIN (test code = 20 See_Comment L [Autom ated 2630271544) message] The sy stem which generated this result transmitted reference range : 25 - 40 mmHg. The reference range was not used to interpret this result as normal/abnormal . HCO3 ERVIN (test code = 39 See_Comment H [Auto mated 4041834803) message] The sy stem which generated this result transmitted reference range : 24 - 28 mEq/L. The reference range was not used to interpret this result as normal/abnormal . AC VBE(BEAKER) (test 9.1 mEq/L code = 8101937865) THB ERVIN (test code = 15.9 g/dL 13.5-18.0 5206054911) %O2HB ERVIN (test code = 30.0 % 52.0-63.0 L 4266833222) %COHB ERVIN (test code = 4.1 % 0.0-1.5 H 8360690354) %METHB ERVIN (test code = 0.3 % 0.4-1.5 L 3896991203) VOL%O2 ERVIN (test code = 6.7 % 6.0-12.0 8658589612) NA (test code = 137 mmol/L 135-145 1080893331) K+ (test code = 4.5 mmol/L 3.5-5.0 0390577649) AC CA IONZ (test code = 4.60 mg/dL 4.50-5.30 1412724764) GLUCOSE (test code = 113 mg/dL 70-110 H 7857660075) LACTIC ACID (test code 1.65 mmol/L 0.50-2.20 = 1611825754) Lab Interpretation Abnormal (test code = 53159-8) [facility] StationNELA [id number] 21:20:05 Test Item Value Reference Range Interpretation Comments TROPONIN I (test code = 0.005 ng/mL <=0.034 1867453198) OMAYRA (test code = OMAYRA) Reference (Normal) Range (defined by the 99th percentile reference limit): <= 0.034 ng/mL Note: Cardiac troponin begins to rise 3-4 hours after the onset of ischemia. Repeat in 4-6 hours if the sample was drawn within 3-4 hours of the onset of the symptom and found normal. Diagnosis of myocardial injury is made with acute changes in cTn concentrations with at least one serial sample above the 99th percentile upper reference limit (URL), taken together with the patient's clinical presentation. Biotin has been reported to cause a negative bias, interpret results relative to patient's use of biotin. Lab Interpretation Normal (test code = 49507-6) [facility] StationN-[facility]MIN[facility] [id number] 21:17:24 Test Item Value Reference Range Interpretation Comments NT-proBNP (test code = 712 pg/mL <=125 H 9841791125) OMAYRA (test code = OMAYRA) Biotin has been reported to cause a negative bias, interpret results relative to patient's use of biotin. 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 CenterCOMP. METABOLIC PANEL (02765) 2023-01-31 21:10:01 Test Item Value Reference Range Interpretation Comments NA (test code = 142 mmol/L 135-145 6354079194) K (test code = 4.7 mmol/L 3.5-5.0 9717047172) CL (test code = 99 mmol/L 98-108 2527016075) CO2 TOTAL (test code = 37 mmol/L 23-31 H 2789732211) AGAP (test code = 6 2-16 8253194605) BUN (test code = 30 mg/dL 7-23 H 0108491373) GLUCOSE (test code = 100 mg/dL 70-110 4048159619) CREATININE (test code = 0.61 mg/dL 0.60-1.25 6443688213) TOTAL BILI (test code = 0.6 mg/dL 0.1-1.9 9181337950) CALCIUM (test code = 8.8 mg/dL 8.6-10.6 3651574545) T PROTEIN (test code = 5.9 g/dL 6.3-8.2 L 0685900719) ALBUMIN (test code = 3.5 g/dL 3.5-5.0 8544982240) ALK PHOS (test code = 42 U/L 34-122 6697953327) ALTv (test code = 16 U/L 5-50 1742-6) AST(SGOT) (test code = 12 U/L 13-40 L 1726737458) eGFR (test code = 133.1 mL/min/1.73m2 9690945746) OMAYRA (test code = OMAYRA) Association of [...] tests). Lab Interpretation Abnormal (test code = 23630-4) [facility] WITH [id number] 20:59:58 Test Item Value Reference Range Interpretation Comments WBC (test code = 13.02 See_Comment H [Automated 6990-2) message] The system which generated this result transmit anirudh reference range : 4.20 - 10.70 10*3/?L. The reference range was not used to interpret this result as normal/abnormal . RBC (test code = 4.09 See_Comment L [Automated 019-8) message] The system which generated this result transmit anirudh reference range : 4.26 - 5.52 10*6/?L. The reference range was not used to interpret this result as normal/abnormal . HGB (test code = 12.8 g/dL 12.2-16.4 718-7) HCT (test code = 41.9 % 38.4-49.3 4544-3) MCV (test code = 102.4 fL 81.7-95.6 H 787-2) MCH (test code = 31.3 pg 26.1-32.7 785-6) MCHC (test code = 30.5 g/dL 31.2-35.0 L 786-4) RDW-SD (test code = 61.6 fL 38.5-51.6 H 80429-6) RDW-CV (test code = 16.2 % 12.1-15.4 H 788-0) PLT (test code = 250 See_Comment [Automated 777-3) message] The system which generated this result transmit anirudh reference range : 150 - 328 10*3/ ?L. The reference range was not u sed to interpret th is result as normal/abnormal . MPV (test code = 10.5 fL 9.8-13.0 55986-1) NRBC/100 WBC (test 0.0 See_Comment [Automat ed code = 8075929429) message] The system which generated this result transmit anirudh reference range : 0.0 - 10.0 /100 WBCs. The reference range was not used to interpret this result as normal/abnormal . NRBC x10^3 (test code See_Comment [Auto mated = 3096136716) message] The system which generated this result transmit anirudh reference range : 10*3/?L. The reference range was not used to interpret this result as normal/abnormal . GRAN MAT (NEUT) % 90.9 % (test code = 770-8) IMM GRAN % (test code 1.20 % = 3780101063) LYMPH % (test code = 3.9 % 736-9) MONO % (test code = 3.8 % 5905-5) EOS % (test code = 0.0 % 713-8) BASO % (test code = 0.2 % 706-2) GRAN MAT x10^3(ANC) 11.83 10*3/uL 1.99-6.95 H (test code = 9732530143) IMM GRAN x10^3 (test 0.16 10*3/uL 0.00-0.06 H code = 7481365854) LYMPH x10^3 (test code 0.51 10*3/uL 1.09-3.23 L = 731-0) MONO x10^3 (test code 0.49 10*3/uL 0.36-1.02 = 742-7) EOS x10^3 (test code = 0.06-0.53 L 711-2) BASO x10^3 (test code 0.03 10*3/uL 0.01-0.09 = 704-7) Lab Interpretation Abnormal (test code = 16796-3) [id number]16[facility]36 Test Item Value Reference Range Interpretation Comments TROPONIN I (test code = 0.002 ng/mL <=0.034 4142958449) OMAYRA (test code = OMAYRA) Reference (Normal) Range (defined by the 99th percentile reference limit): <= 0.034 ng/mL Note: Cardiac troponin begins to rise 3-4 hours after the onset of ischemia. Repeat in 4-6 hours if the sample was drawn within 3-4 hours of the onset of the symptom and found normal. Diagnosis of myocardial injury is made with acute changes in cTn concentrations with at least one serial sample above the 99th percentile upper reference limit (URL), taken together with the patient's clinical presentation. Biotin has been reported to cause a negative bias, interpret results relative to patient's use of biotin. Lab Interpretation Normal (test code = 95158-4) [facility] StationN-TERMINAL [id number] 11:13:18 Test Item Value Reference Range Interpretation Comments NT-proBNP (test code = 112 pg/mL <=125 4943592066) OMAYRA (test code = OMAYRA) Biotin has been reported to cause a negative bias, interpret results relative to patient's use of biotin. Lab Interpretation (test Normal code = 76613-9) [facility] StationBASI METABOLIC PANEL (NA, K, CL, CO2, GLUCOSE, BUN, CREATININE, CA)2023-01-27 11:04:56 Test Item Value Reference Range Interpretation Comments NA (test code = 136 mmol/L 135-145 3308981878) K (test code = 4.1 mmol/L 3.5-5.0 4677426585) CL (test code = 96 mmol/L 98-108 L 2834407299) CO2 TOTAL (test code = 34 mmol/L 23-31 H 8123714168) AGAP (test code = 6 2-16 2063675528) BUN (test code = 22 mg/dL 7-23 1055379894) GLUCOSE (test code = 117 mg/dL 70-110 H 5954282746) CREATININE (test code = 0.55 mg/dL 0.60-1.25 L 7974847973) CALCIUM (test code = 8.4 mg/dL 8.6-10.6 L 7586793199) eGFR (test code = 150.0 mL/min/1.73m2 4472804589) OMAYRA (test code = OMAYRA) Association of [...] tests). Lab Interpretation Abnormal (test code = 30749-9) [facility] WITH [id number] 10:38:33 Test Item Value Reference Range Interpretation Comments WBC (test code = 9.56 See_Comment [Automated 6690-2) message] The sy stem which generated this result transmitted reference range : 4.20 - 10.70 10*3/?L. The reference range was not used to interpret this result as normal/abnormal . RBC (test code = 4.31 See_Comment [Automated 789-8) message] The sy stem which generated this result transmitted reference range : 4.26 - 5.52 10*6/?L. The reference range was not used to interpret this result as normal/abnormal . HGB (test code = 13.6 g/dL 12.2-16.4 718-7) HCT (test code = 42.8 % 38.4-49.3 4544-3) MCV (test code = 99.3 fL 81.7-95.6 H 787-2) MCH (test code = 31.6 pg 26.1-32.7 785-6) MCHC (test code = 31.8 g/dL 31.2-35.0 786-4) RDW-SD (test code = 56.7 fL 38.5-51.6 H 74015-5) RDW-CV (test code = 15.3 % 12.1-15.4 788-0) PLT (test code = 220 See_Comment [Automated 777-3) message] The sy stem which generated this result transmitted reference range : 150 - 328 10*3/ ?L. The reference r pasquale was not used to interpret this result as normal/abnormal . MPV (test code = 10.6 fL 9.8-13.0 73796-1) NRBC/100 WBC (test 0.0 See_Comment [Automat ed code = 2703766461) message] The system which generated this result transmitted reference range : 0.0 - 10.0 /100 WBCs. The refer ence range was not u sed to interpret th is result as normal/abnormal . NRBC x10^3 (test code See_Comment [Auto mated = 0278277676) message] The s ystem which generated this result transmitted reference range : 10*3/?L. The reference range was not used to interpret this result as normal/abnormal . GRAN MAT (NEUT) % 60.0 % (test code = 770-8) IMM GRAN % (test code 0.70 % = 5784360785) LYMPH % (test code = 26.5 % 736-9) MONO % (test code = 11.4 % 5905-5) EOS % (test code = 0.9 % 713-8) BASO % (test code = 0.5 % 706-2) GRAN MAT x10^3(ANC) 5.73 10*3/uL 1.99-6.95 (test code = 8669474459) IMM GRAN x10^3 (test 0.07 10*3/uL 0.00-0.06 H code = 8497674700) LYMPH x10^3 (test code 2.53 10*3/uL 1.09-3.23 = 731-0) MONO x10^3 (test code 1.09 10*3/uL 0.36-1.02 H = 742-7) EOS x10^3 (test code = 0.09 10*3/uL 0.06-0.53 711-2) BASO x10^3 (test code 0.05 10*3/uL 0.01-0.09 = 704-7) Lab Interpretation Abnormal (test code = 65883-0) [facility] StationAMMONIA, [id number] 18:51:59 Test Item Value Reference Range Interpretation Comments AMMONIA (test code = 5179249551) 9-33 L Lab Interpretation (test code = Abnormal 66731-9) [facility] ABG + LACTIC [id number] 18:40:53 Test Item Value Reference Range Interpretation Comments PH (test code = 2) 7.43 7.35-7.45 PCO2 (test code = 53 See_Comment H [Automate d 8773902280) message] The sy stem which generated this result transmitted reference range : 35 - 45 mmHg. The reference range was not used to interpret this result as normal/abnormal . PO2 (test code = 49 See_Comment L [Automated 8106415536) message] The sy stem which generated this result transmitted reference range : 80 - 100 mmHg. The reference range was not used to interpret this result as normal/abnormal . HCO3 (test code = 34 See_Comment H [Automate d 9590976677) message] The sy stem which generated this result transmitted reference range : 22 - 26 mEq/L. The reference range was not used to interpret this result as normal/abnormal . BE (test code = 7.8 See_Comment H [Automated 9073340157) message] The sy stem which generated this result transmitted reference range : -3.0 - 3.0 mEq/ L. The reference r pasquale was not used to interpret this result as normal/abnormal . LACTIC ACID (test code 0.92 mmol/L 0.50-2.20 = 1172535177) Lab Interpretation Abnormal (test code = 40146-8) [facility] StationTroponin [id number] 18:28:26 Test Item Value Reference Range Interpretation Comments TROPONIN I (test code = 0.003 ng/mL <=0.034 2908302679) OMAYRA (test code = OMAYRA) Reference (Normal) Range (defined by the 99th percentile reference limit): <= 0.034 ng/mL Note: Cardiac troponin begins to rise 3-4 hours after the onset of ischemia. Repeat in 4-6 hours if the sample was drawn within 3-4 hours of the onset of the symptom and found normal. Diagnosis of myocardial injury is made with acute changes in cTn concentrations with at least one serial sample above the 99th percentile upper reference limit (URL), taken together with the patient's clinical presentation. Biotin has been reported to cause a negative bias, interpret results relative to patient's use of biotin. Lab Interpretation Normal (test code = 90532-5) [facility] StationN-TERMINAL [id number] 18:25:29 Test Item Value Reference Range Interpretation Comments NT-proBNP (test code = 376 pg/mL <=125 H 5221527160) OMAYRA (test code = OMAYRA) Biotin has been reported to cause a negative bias, interpret results relative to patient's use of biotin. Lab Interpretation (test Abnormal code = 51697-6) [facility] StationCOMP Metabolic Panel (85660)2023-01-24 18:24:03 Test Item Value Reference Range Interpretation Comments NA (test code = 135 mmol/L 135-145 1394457041) K (test code = 4.0 mmol/L 3.5-5.0 0465522686) CL (test code = 90 mmol/L 98-108 L 6634100093) CO2 TOTAL (test code = 43 mmol/L 23-31 H 6138105181) AGAP (test code = 2 2-16 5067058993) BUN (test code = 12 mg/dL 7-23 4186170894) GLUCOSE (test code = 92 mg/dL 70-110 8769205199) CREATININE (test code = 0.58 mg/dL 0.60-1.25 L 5400349005) TOTAL BILI (test code = 1.3 mg/dL 0.1-1.1 H 9808268120) CALCIUM (test code = 8.6 mg/dL 8.6-10.6 5216526131) T PROTEIN (test code = 6.0 g/dL 6.3-8.2 L 5618536547) ALBUMIN (test code = 3.6 g/dL 3.5-5.0 1313882646) ALK PHOS (test code = 52 U/L 34-122 7153497818) ALTv (test code = 17 U/L 5-50 1742-6) AST(SGOT) (test code = 10 U/L 13-40 L 3602622795) eGFR (test code = 141.1 mL/min/1.73m2 7993397284) OMAYRA (test code = OMAYRA) Association of [...] tests). 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 Luke[facility] CenterCBC with [id number] 18:09:00 Test Item Value Reference Range Interpretation Comments WBC (test code = 7.84 See_Comment [Automated 7205-2) message] The sy stem which generated this result transmitted reference range : 4.20 - 10.70 10*3/?L. The reference range was not used to interpret this result as normal/abnormal . RBC (test code = 4.46 See_Comment [Automated 887-8) message] The sy stem which generated this result transmitted reference range : 4.26 - 5.52 10*6/?L. The reference range was not used to interpret this result as normal/abnormal . HGB (test code = 13.7 g/dL 12.2-16.4 718-7) HCT (test code = 45.0 % 38.4-49.3 4544-3) MCV (test code = 100.9 fL 81.7-95.6 H 787-2) MCH (test code = 30.7 pg 26.1-32.7 785-6) MCHC (test code = 30.4 g/dL 31.2-35.0 L 786-4) RDW-SD (test code = 59.7 fL 38.5-51.6 H 70338-4) RDW-CV (test code = 15.8 % 12.1-15.4 H 788-0) PLT (test code = 239 See_Comment [Automated 777-3) message] The sy stem which generated this result transmitted reference range : 150 - 328 10*3/ ?L. The reference r pasquale was not used to interpret this result as normal/abnormal . MPV (test code = 10.5 fL 9.8-13.0 04291-6) NRBC/100 WBC (test 0.0 See_Comment [Automat ed code = 4372910082) message] The system which generated this result transmitted reference range : 0.0 - 10.0 /100 WBCs. The refer ence range was not u sed to interpret th is result as normal/abnormal . NRBC x10^3 (test code See_Comment [Auto mated = 8925195376) message] The s ystem which generated this result transmitted reference range : 10*3/?L. The reference range was not used to interpret this result as normal/abnormal . GRAN MAT (NEUT) % 64.5 % (test code = 770-8) IMM GRAN % (test code 0.40 % = 5715673154) LYMPH % (test code = 23.1 % 736-9) MONO % (test code = 9.8 % 5905-5) EOS % (test code = 1.8 % 713-8) BASO % (test code = 0.4 % 706-2) GRAN MAT x10^3(ANC) 5.06 10*3/uL 1.99-6.95 (test code = 2257476261) IMM GRAN x10^3 (test 0.03 10*3/uL 0.00-0.06 code = 0287765884) LYMPH x10^3 (test code 1.81 10*3/uL 1.09-3.23 = 731-0) MONO x10^3 (test code 0.77 10*3/uL 0.36-1.02 = 742-7) EOS x10^3 (test code = 0.14 10*3/uL 0.06-0.53 711-2) BASO x10^3 (test code 0.03 10*3/uL 0.01-0.09 = 704-7) Lab Interpretation Abnormal (test code = 67024-1) [facility]. METABOLIC PANEL ([id number])2023-01-21 21:33:50 Test Item Value Reference Range Interpretation Comments NA (test code = 136 mmol/L 135-145 7033374993) K (test code = 4.3 mmol/L 3.5-5.0 6894453966) CL (test code = 95 mmol/L 98-108 L 3336711806) CO2 TOTAL (test code = 38 mmol/L 23-31 H 4649873182) AGAP (test code = 3 2-16 6908298679) BUN (test code = 17 mg/dL 7-23 2772488625) GLUCOSE (test code = 102 mg/dL 70-110 7896656413) CREATININE (test code = 0.62 mg/dL 0.60-1.25 8080799349) TOTAL BILI (test code = 0.8 mg/dL 0.1-1.9 8123428525) CALCIUM (test code = 7.8 mg/dL 8.6-10.6 L 0586189749) T PROTEIN (test code = 4.9 g/dL 6.3-8.2 L 4077634080) ALBUMIN (test code = 3.0 g/dL 3.5-5.0 L 2432944031) ALK PHOS (test code = 45 U/L 34-122 4137080748) ALTv (test code = 13 U/L 5-50 1742-6) AST(SGOT) (test code = 11 U/L 13-40 L 5120234656) eGFR (test code = 130.6 mL/min/1.73m2 1802783473) OMAYRA (test code = OAMYRA) Association of Glomerular Filtration Rate (GFR) and [...] tests). Lab Interpretation Abnormal (test code = 95954-6) [facility] StationTROPONIN [id number] 21:11:45 Test Item Value Reference Range Interpretation Comments TROPONIN I (test code = 0.019 ng/mL <=0.034 6332131819) OMAYRA (test code = OMAYRA) Reference (Normal) Range (defined by the 99th percentile reference limit): <= 0.034 ng/mL Note: Cardiac troponin begins to rise 3-4 hours after the onset of ischemia. Repeat in 4-6 hours if the sample was drawn within 3-4 hours of the onset of the symptom and found normal. Diagnosis of myocardial injury is made with acute changes in cTn concentrations with at least one serial sample above the 99th percentile upper reference limit (URL), taken together with the patient's clinical presentation. Biotin has been reported to cause a negative bias, interpret results relative to patient's use of biotin. Lab Interpretation Normal (test code = 13799-8) [facility] StationN-TERMINAL [id number] 21:08:47 Test Item Value Reference Range Interpretation Comments NT-proBNP (test code = 266 pg/mL <=125 H Hemol yzed 8908219629) specimen OMAYRA (test code = OMAYRA) Biotin has been reported to cause a negative bias, interpret results relative to patient's use of biotin. Lab Interpretation Abnormal (test code = 83547-8) [facility] StationCB WITH [id number] 20:40:24 Test Item Value Reference Range Interpretation Comments WBC (test code = 6.78 See_Comment [Automated 6690-2) message] The sy stem which generated this result transmitted reference range : 4.20 - 10.70 10*3/?L. The reference range was not used to interpret this result as normal/abnormal . RBC (test code = 4.47 See_Comment [Automated 789-8) message] The sy stem which generated this result transmitted reference range : 4.26 - 5.52 10*6/?L. The reference range was not used to interpret this result as normal/abnormal . HGB (test code = 13.8 g/dL 12.2-16.4 718-7) HCT (test code = 45.1 % 38.4-49.3 4544-3) MCV (test code = 100.9 fL 81.7-95.6 H 787-2) MCH (test code = 30.9 pg 26.1-32.7 785-6) MCHC (test code = 30.6 g/dL 31.2-35.0 L 786-4) RDW-SD (test code = 60.4 fL 38.5-51.6 H 82842-9) RDW-CV (test code = 16.2 % 12.1-15.4 H 788-0) PLT (test code = 215 See_Comment [Automated 777-3) message] The sy stem which generated this result transmitted reference range : 150 - 328 10*3/ ?L. The reference r pasquale was not used to interpret this result as normal/abnormal . MPV (test code = 10.9 fL 9.8-13.0 32166-9) NRBC/100 WBC (test 0.0 See_Comment [Automat ed code = 1807924749) message] The system which generated this result transmitted reference range : 0.0 - 10.0 /100 WBCs. The refer ence range was not u sed to interpret th is result as normal/abnormal . NRBC x10^3 (test code See_Comment [Auto mated = 3157418531) message] The s ystem which generated this result transmitted reference range : 10*3/?L. The reference range was not used to interpret this result as normal/abnormal . GRAN MAT (NEUT) % 75.4 % (test code = 770-8) IMM GRAN % (test code 0.40 % = 5817008536) LYMPH % (test code = 15.3 % 736-9) MONO % (test code = 7.7 % 5905-5) EOS % (test code = 0.9 % 713-8) BASO % (test code = 0.3 % 706-2) GRAN MAT x10^3(ANC) 5.11 10*3/uL 1.99-6.95 (test code = 4131174999) IMM GRAN x10^3 (test 0.03 10*3/uL 0.00-0.06 code = 0827120605) LYMPH x10^3 (test code 1.04 10*3/uL 1.09-3.23 L = 731-0) MONO x10^3 (test code 0.52 10*3/uL 0.36-1.02 = 742-7) EOS x10^3 (test code = 0.06 10*3/uL 0.06-0.53 711-2) BASO x10^3 (test code 0.01-0.09 = 704-7) Lab Interpretation Abnormal (test code = 57435-3) [facility] [id number] 08:49:53 Test Item Value Reference Range Interpretation Comments NT-proBNP (test code = 158 pg/mL <=125 H 6253798822) OMAYRA (test code = OMAYRA) Biotin has been reported to cause a negative bias, interpret results relative to patient's use of biotin. Lab Interpretation (test Abnormal code = 32083-1) [facility] StationD-[id number] 08:44:10 Test Item Value Reference Interpretation Comments Range D-DIMER (test code = See_Comment [Autom ated 3483999521) message] The system which generated this result transmitted reference range : <0.41 ?g/mL (FEU). The reference range was not used to interpret this result as normal/abnormal . OMAYRA (test code = This test may be OMAYRA) used in conjunction with a clinical pretest probability (PTP) assessment model to exclude venous thromboembolism (VTE) in patients suspected of deep venous thrombosis (DVT) and pulmonary embolism (PE) A D-Dimer value less than 0.50 ?g/ml (FEU) has a negative predicative value of 96 to 100% (95% CI)and 97 to 100% (95% CI) as an aid in the diagnosis of deep vein thrombosis (DVT) and pulmonary embolism when there is low or moderate pretest probability of PE or DVT. D-Dimer values are expressed in initial fibrinogen equivalent units (FEU)" The assay results should be used with other information, including the clinical context, in forming a diagnosis. Lab Interpretation Normal (test code = 39839-9) [facility] METABOLIC PANEL (NA, K, CL, CO2, GLUCOSE, BUN, CREATININE, CA)2023-01-19 08:41:13 Test Item Value Reference Range Interpretation Comments NA (test code = 134 mmol/L 135-145 L 5963825247) K (test code = 5.3 mmol/L 3.5-5.0 H 6838432551) CL (test code = 91 mmol/L 98-108 L 2090004270) CO2 TOTAL (test code = 40 mmol/L 23-31 H 1777635414) AGAP (test code = 3 2-16 9881428596) BUN (test code = 14 mg/dL 7-23 3179835354) GLUCOSE (test code = 125 mg/dL 70-110 H 7190577269) CREATININE (test code = 0.64 mg/dL 0.60-1.25 5068713510) CALCIUM (test code = 8.5 mg/dL 8.6-10.6 L 9447573941) eGFR (test code = 125.9 mL/min/1.73m2 6482677136) OMAYRA (test code = OMAYRA) Association of [...] tests). Lab Interpretation Abnormal (test code = 47866-8) [facility] WITH [id number] 08:27:33 Test Item Value Reference Range Interpretation Comments WBC (test code = 10.04 See_Comment [Automated 1421-2) message] The sy stem which generated this result transmitted reference range : 4.20 - 10.70 10*3/?L. The reference range was not used to interpret this result as normal/abnormal . RBC (test code = 4.35 See_Comment [Automated 576-8) message] The sy stem which generated this result transmitted reference range : 4.26 - 5.52 10*6/?L. The reference range was not used to interpret this result as normal/abnormal . HGB (test code = 13.5 g/dL 12.2-16.4 718-7) HCT (test code = 43.3 % 38.4-49.3 4544-3) MCV (test code = 99.5 fL 81.7-95.6 H 787-2) MCH (test code = 31.0 pg 26.1-32.7 785-6) MCHC (test code = 31.2 g/dL 31.2-35.0 786-4) RDW-SD (test code = 58.4 fL 38.5-51.6 H 00600-9) RDW-CV (test code = 15.9 % 12.1-15.4 H 788-0) PLT (test code = 211 See_Comment [Automated 403-3) message] The sy stem which generated this result transmitted reference range : 150 - 328 10*3/ ?L. The reference r pasquale was not used to interpret this result as normal/abnormal . MPV (test code = 10.2 fL 9.8-13.0 36271-9) NRBC/100 WBC (test 0.0 See_Comment [Automat ed code = 8022677310) message] The system which generated this result transmitted reference range : 0.0 - 10.0 /100 WBCs. The refer ence range was not u sed to interpret th is result as normal/abnormal . NRBC x10^3 (test code See_Comment [Auto mated = 3680608437) message] The s ystem which generated this result transmitted reference range : 10*3/?L. The reference range was not used to interpret this result as normal/abnormal . GRAN MAT (NEUT) % 81.2 % (test code = 770-8) IMM GRAN % (test code 0.50 % = 8216207379) LYMPH % (test code = 10.1 % 736-9) MONO % (test code = 7.5 % 5905-5) EOS % (test code = 0.5 % 713-8) BASO % (test code = 0.2 % 706-2) GRAN MAT x10^3(ANC) 8.16 10*3/uL 1.99-6.95 H (test code = 4817617205) IMM GRAN x10^3 (test 0.05 10*3/uL 0.00-0.06 code = 7246418198) LYMPH x10^3 (test code 1.01 10*3/uL 1.09-3.23 L = 731-0) MONO x10^3 (test code 0.75 10*3/uL 0.36-1.02 = 742-7) EOS x10^3 (test code = 0.05 10*3/uL 0.06-0.53 L 711-2) BASO x10^3 (test code 0.01-0.09 = 704-7) Lab Interpretation Abnormal (test code = 37500-7) [facility]EMERITASPARTAN[facility] MED[facility] CENTERKIRA [id number] 12:09:33 Test Item Value Reference Range Interpretation Comments TROPONIN I (test code = 0.004 ng/mL <=0.034 5995076324) OMAYRA (test code = OMAYRA) Reference (Normal) Range (defined by the 99th percentile reference limit): <= 0.034 ng/mL Note: Cardiac troponin begins to rise 3-4 hours after the onset of ischemia. Repeat in 4-6 hours if the sample was drawn within 3-4 hours of the onset of the symptom and found normal. Diagnosis of myocardial injury is made with acute changes in cTn concentrations with at least one serial sample above the 99th percentile upper reference limit (URL), taken together with the patient's clinical presentation. Biotin has been reported to cause a negative bias, interpret results relative to patient's use of biotin. Lab Interpretation Normal (test code = 74643-5) [facility] Station[facility] [id number] 12:06:16 Test Item Value Reference Range Interpretation Comments NT-proBNP (test code = 135 pg/mL <=125 H 9501243160) OMAYRA (test code = OMAYRA) Biotin has been reported to cause a negative bias, interpret results relative to patient's use of biotin. Lab Interpretation (test Abnormal code = 24212-2) [facility]. Metabolic Panel (34385)2023-01-17 11:57:36 Test Item Value Reference Range Interpretation Comments NA (test code = 133 mmol/L 135-145 L 2064941904) K (test code = 5.0 mmol/L 3.5-5.0 0352365026) CL (test code = 91 mmol/L 98-108 L 2020218618) CO2 TOTAL (test code = 33 mmol/L 23-31 H 7565625611) AGAP (test code = 9 2-16 3086311805) BUN (test code = 10 mg/dL 7-23 3180360258) GLUCOSE (test code = 104 mg/dL 70-110 0779088983) CREATININE (test code = 0.63 mg/dL 0.60-1.25 6415884895) TOTAL BILI (test code = 1.2 mg/dL 0.1-1.1 H 4863226609) CALCIUM (test code = 9.0 mg/dL 8.6-10.6 8052130431) T PROTEIN (test code = 6.9 g/dL 6.3-8.2 8997921232) ALBUMIN (test code = 4.4 g/dL 3.5-5.0 5594350277) ALK PHOS (test code = 76 U/L 34-122 2329523220) ALTv (test code = 13 U/L 5-50 2-6) AST(SGOT) (test code = 13 U/L 13-40 0903057930) eGFR (test code = 128.2 mL/min/1.73m2 3395219027) OMAYRA (test code = OMAYRA) Association of [...] tests). Lab Interpretation Abnormal (test code = 80190-7) [facility] with [id number] 11:30:52 Test Item Value Reference Range Interpretation Comments WBC (test code = 9.66 See_Comment [Automated 2590-2) message] The sy stem which generated this result transmitted reference range : 4.20 - 10.70 10*3/?L. The reference range was not used to interpret this result as normal/abnormal . RBC (test code = 5.00 See_Comment [Automated 789-8) message] The sy stem which generated this result transmitted reference range : 4.26 - 5.52 10*6/?L. The reference range was not used to interpret this result as normal/abnormal . HGB (test code = 15.5 g/dL 12.2-16.4 718-7) HCT (test code = 49.7 % 38.4-49.3 H 4544-3) MCV (test code = 99.4 fL 81.7-95.6 H 787-2) MCH (test code = 31.0 pg 26.1-32.7 785-6) MCHC (test code = 31.2 g/dL 31.2-35.0 786-4) RDW-SD (test code = 56.6 fL 38.5-51.6 H 74814-0) RDW-CV (test code = 15.4 % 12.1-15.4 788-0) PLT (test code = 261 See_Comment [Automated 777-3) message] The sy stem which generated this result transmitted reference range : 150 - 328 10*3/ ?L. The reference r pasquale was not used to interpret this result as normal/abnormal . MPV (test code = 10.4 fL 9.8-13.0 60348-4) NRBC/100 WBC (test 0.0 See_Comment [Automat ed code = 2823640883) message] The system which generated this result transmitted reference range : 0.0 - 10.0 /100 WBCs. The refer ence range was not u sed to interpret th is result as normal/abnormal . NRBC x10^3 (test code See_Comment [Auto mated = 3093137655) message] The s ystem which generated this result transmitted reference range : 10*3/?L. The reference range was not used to interpret this result as normal/abnormal . GRAN MAT (NEUT) % 58.9 % (test code = 770-8) IMM GRAN % (test code 0.40 % = 7804931010) LYMPH % (test code = 28.6 % 736-9) MONO % (test code = 10.5 % 5905-5) EOS % (test code = 0.9 % 713-8) BASO % (test code = 0.7 % 706-2) GRAN MAT x10^3(ANC) 5.69 10*3/uL 1.99-6.95 (test code = 1614191230) IMM GRAN x10^3 (test 0.04 10*3/uL 0.00-0.06 code = 6725143112) LYMPH x10^3 (test code 2.76 10*3/uL 1.09-3.23 = 731-0) MONO x10^3 (test code 1.01 10*3/uL 0.36-1.02 = 742-7) EOS x10^3 (test code = 0.09 10*3/uL 0.06-0.53 711-2) BASO x10^3 (test code 0.07 10*3/uL 0.01-0.09 = 704-7) Lab Interpretation Abnormal (test code = 97798-8) [facility] [id number] 10:20:57 Test Item Value Reference Range Interpretation Comments NT-proBNP (test code = 473 pg/mL <=125 H 1152293384) OMAYRA (test code = OMAYRA) Biotin has been reported to cause a negative bias, interpret results relative to patient's use of biotin. Lab Interpretation (test Abnormal code = 27526-3) [facility] StationLIPID PANEL (57972)(TOTAL CHOLESTEROL, TRIGLYCERIDES, HDL)2022-12-12 10:18:39 Test Item Value Reference Range Interpretation Comments CHOL (test code = 9820583977) 133 mg/dL 120-200 HDL (test code = 6985573067) 38 mg/dL >=40 L HDLC RATIO (test code = 2213086336) 3.5 <=5.0 TRIG (test code = 8058392985) 57 mg/dL 30-170 LDL CHOL (test code = 98479-9) 84 mg/dL <=160 VLDL (test code = 1880615361) 11 mg/dL 5-60 Lab Interpretation (test code = Abnormal 44428-5) [facility] StationMAGNESIUM2023-03-26 10:18:19 Test Item Value Reference Range Interpretation Comments MAGNESIUM (test code = 7907999426) 2.0 mg/dL 1.7-2.4 Lab Interpretation (test code = Normal 96127-0) [facility] METABOLIC PANEL (NA, K, CL, CO2, GLUCOSE, BUN, CREATININE, CA)2022-12-12 10:18:14 Test Item Value Reference Range Interpretation Comments NA (test code = 130 mmol/L 135-145 L 4357070307) K (test code = 3.7 mmol/L 3.5-5.0 3742044958) CL (test code = 89 mmol/L 98-108 L 9479268859) CO2 TOTAL (test code = 37 mmol/L 23-31 H 5588250366) AGAP (test code = 4 2-16 7945784700) BUN (test code = 13 mg/dL 7-23 6648563468) GLUCOSE (test code = 120 mg/dL 70-110 H 5188449960) CREATININE (test code = 0.56 mg/dL 0.60-1.25 L 0042114768) CALCIUM (test code = 8.3 mg/dL 8.6-10.6 L 8189452915) eGFR (test code = 146.9 mL/min/1.73m2 2381896834) OMAYRA (test code = OMAYRA) Association of [...] tests). Lab Interpretation Abnormal (test code = 02547-1) [facility] StationETHANOL2023-03-25 00:54:58 ALCOHOL<10mg/dL12/10/2022 7:54 PM [facility]<10 Qlgbeibx71-055 Toxic>100 Depression of [employer]ER [employer]SEMBLER>400 Fatalities ReportedUnSt. Luke[facility] CenterTROPONIN [id number] 00:50:14 Test Item Value Reference Range Interpretation Comments TROPONIN I (test code = 0.006 ng/mL <=0.034 6638407230) OMAYRA (test code = OMAYRA) Reference (Normal) Range (defined by the 99th percentile reference limit): <= 0.034 ng/mL Note: Cardiac troponin begins to rise 3-4 hours after the onset of ischemia. Repeat in 4-6 hours if the sample was drawn within 3-4 hours of the onset of the symptom and found normal. Diagnosis of myocardial injury is made with acute changes in cTn concentrations with at least one serial sample above the 99th percentile upper reference limit (URL), taken together with the patient's clinical presentation. Biotin has been reported to cause a negative bias, interpret results relative to patient's use of biotin. Lab Interpretation Normal (test code = 16386-0) [facility] Station[facility] [id number] 00:47:12 Test Item Value Reference Range Interpretation Comments NT-proBNP (test code = 291 pg/mL <=125 H 7081511667) OMAYRA (test code = OMAYRA) Biotin has been reported to cause a negative bias, interpret results relative to patient's use of biotin. Lab Interpretation (test Abnormal code = 40072-6) [facility] StationCOMP. METABOLIC PANEL (27696)2022-12-11 00:41:12 Test Item Value Reference Range Interpretation Comments NA (test code = 126 mmol/L 135-145 L 5179816730) K (test code = 4.0 mmol/L 3.5-5.0 0535469190) CL (test code = 82 mmol/L 98-108 L 7635628181) CO2 TOTAL (test code = 40 mmol/L 23-31 H 4711964326) AGAP (test code = 4 2-16 7558631117) BUN (test code = 16 mg/dL 7-23 6992043039) GLUCOSE (test code = 97 mg/dL 70-110 3116118075) CREATININE (test code = 0.67 mg/dL 0.60-1.25 6269175963) TOTAL BILI (test code = 0.8 mg/dL 0.1-1.9 0547910064) CALCIUM (test code = 8.5 mg/dL 8.6-10.6 L 6886882611) T PROTEIN (test code = 5.9 g/dL 6.3-8.2 L 1743416416) ALBUMIN (test code = 3.5 g/dL 3.5-5.0 5121093104) ALK PHOS (test code = 49 U/L 34-122 9749906704) ALTv (test code = 18 U/L 5-50 1742-6) AST(SGOT) (test code = 11 U/L 13-40 L 3136755319) eGFR (test code = 119.4 mL/min/1.73m2 8524229489) OMAYRA (test code = OMAYRA) Association of [...] tests). Lab Interpretation Abnormal (test code = 68178-9) [facility] WITH [id number] 00:29:08 Test Item Value Reference Range Interpretation Comments WBC (test code = 10.15 See_Comment [Automated 2224-2) message] The sy stem which generated this result transmitted reference range : 4.20 - 10.70 10*3/?L. The reference range was not used to interpret this result as normal/abnormal . RBC (test code = 4.52 See_Comment [Automated 151-8) message] The sy stem which generated this result transmitted reference range : 4.26 - 5.52 10*6/?L. The reference range was not used to interpret this result as normal/abnormal . HGB (test code = 13.7 g/dL 12.2-16.4 718-7) HCT (test code = 41.8 % 38.4-49.3 4544-3) MCV (test code = 92.5 fL 81.7-95.6 787-2) MCH (test code = 30.3 pg 26.1-32.7 785-6) MCHC (test code = 32.8 g/dL 31.2-35.0 786-4) RDW-SD (test code = 46.7 fL 38.5-51.6 16400-3) RDW-CV (test code = 13.6 % 12.1-15.4 788-0) PLT (test code = 263 See_Comment [Automated 547-3) message] The sy stem which generated this result transmitted reference range : 150 - 328 10*3/ ?L. The reference r pasquale was not used to interpret this result as normal/abnormal . MPV (test code = 9.7 fL 9.8-13.0 L 20743-2) NRBC/100 WBC (test 0.0 See_Comment [Automat ed code = 0380228735) message] The system which generated this result transmitted reference range : 0.0 - 10.0 /100 WBCs. The refer ence range was not u sed to interpret th is result as normal/abnormal . NRBC x10^3 (test code See_Comment [Auto mated = 1193053043) message] The s ystem which generated this result transmitted reference range : 10*3/?L. The reference range was not used to interpret this result as normal/abnormal . GRAN MAT (NEUT) % 71.6 % (test code = 770-8) IMM GRAN % (test code 0.90 % = 6602518849) LYMPH % (test code = 17.6 % 736-9) MONO % (test code = 8.7 % 5905-5) EOS % (test code = 1.0 % 713-8) BASO % (test code = 0.2 % 706-2) GRAN MAT x10^3(ANC) 7.27 10*3/uL 1.99-6.95 H (test code = 7853274524) IMM GRAN x10^3 (test 0.09 10*3/uL 0.00-0.06 H code = 9730949608) LYMPH x10^3 (test code 1.79 10*3/uL 1.09-3.23 = 731-0) MONO x10^3 (test code 0.88 10*3/uL 0.36-1.02 = 742-7) EOS x10^3 (test code = 0.10 10*3/uL 0.06-0.53 711-2) BASO x10^3 (test code 0.01-0.09 = 704-7) Lab Interpretation Abnormal (test code = 94422-1) [facility] StationLactic Acid Whole [id number] 00:14:48 Test Item Value Reference Range Interpretation Comments LACTIC ACID (test code = 1.30 mmol/L 0.50-2.20 0167397038) Lab Interpretation (test code = Normal 61251-6) [facility] (NA, K, CL, CO2, GLUCOSE, BUN, CREATININE, CA)2022-12-04 11:06:33 Test Item Value Reference Range Interpretation Comments NA (test code = 123 mmol/L 135-145 L 7338490546) K (test code = 3.8 mmol/L 3.5-5.0 9450848493) CL (test code = 86 mmol/L 98-108 L 9392060955) CO2 TOTAL (test code = 36 mmol/L 23-31 H 8198345818) AGAP (test code = 1 2-16 L 9310186057) BUN (test code = 22 mg/dL 7-23 0426693820) GLUCOSE (test code = 195 mg/dL 70-110 H 7328836850) CREATININE (test code = 0.76 mg/dL 0.60-1.25 4217027414) CALCIUM (test code = 8.2 mg/dL 8.6-10.6 L 7253267848) eGFR (test code = 103.3 mL/min/1.73m2 7227797421) OMAYRA (test code = OMAYRA) Association of [...] tests). Lab Interpretation Abnormal (test code = 70072-2) [facility] WITH [id number] 10:54:29 Test Item Value Reference Range Interpretation Comments WBC (test code = 8.54 See_Comment [Automated 6690-2) message] The sy stem which generated this result transmitted reference range : 4.20 - 10.70 10*3/?L. The reference range was not used to interpret this result as normal/abnormal . RBC (test code = 4.17 See_Comment L [Automated 789-8) message] The sy stem which generated this result transmitted reference range : 4.26 - 5.52 10*6/?L. The reference range was not used to interpret this result as normal/abnormal . HGB (test code = 12.5 g/dL 12.2-16.4 718-7) HCT (test code = 36.7 % 38.4-49.3 L 4544-3) MCV (test code = 88.0 fL 81.7-95.6 787-2) MCH (test code = 30.0 pg 26.1-32.7 785-6) MCHC (test code = 34.1 g/dL 31.2-35.0 786-4) RDW-SD (test code = 44.1 fL 38.5-51.6 85963-3) RDW-CV (test code = 13.6 % 12.1-15.4 788-0) PLT (test code = 247 See_Comment [Automated 777-3) message] The sy stem which generated this result transmitted reference range : 150 - 328 10*3/ ?L. The reference r pasquale was not used to interpret this result as normal/abnormal . MPV (test code = 9.5 fL 9.8-13.0 L 61924-9) NRBC/100 WBC (test 0.0 See_Comment [Automat ed code = 0532186686) message] The system which generated this result transmitted reference range : 0.0 - 10.0 /100 WBCs. The refer ence range was not u sed to interpret th is result as normal/abnormal . NRBC x10^3 (test code See_Comment [Auto mated = 8905305275) message] The s ystem which generated this result transmitted reference range : 10*3/?L. The reference range was not used to interpret this result as normal/abnormal . GRAN MAT (NEUT) % 93.0 % (test code = 770-8) IMM GRAN % (test code 0.90 % = 3904832803) LYMPH % (test code = 3.2 % 736-9) MONO % (test code = 2.9 % 5905-5) EOS % (test code = 0.0 % 713-8) BASO % (test code = 0.0 % 706-2) GRAN MAT x10^3(ANC) 7.94 10*3/uL 1.99-6.95 H (test code = 5263019493) IMM GRAN x10^3 (test 0.08 10*3/uL 0.00-0.06 H code = 8965422236) LYMPH x10^3 (test code 0.27 10*3/uL 1.09-3.23 L = 731-0) MONO x10^3 (test code 0.25 10*3/uL 0.36-1.02 L = 742-7) EOS x10^3 (test code = 0.06-0.53 L 711-2) BASO x10^3 (test code 0.01-0.09 = 704-7) Lab Interpretation Abnormal (test code = 46829-9) [facility] Metabolic Panel (NA, K, CL, CO2, GLUCOSE, BUN, CREATININE, CA)2022-12-03 10:44:53 Test Item Value Reference Range Interpretation Comments NA (test code = 126 mmol/L 135-145 L 3773786971) K (test code = 4.0 mmol/L 3.5-5.0 Slight 3030594507) hemolysis CL (test code = 89 mmol/L 98-108 L 3372173177) CO2 TOTAL (test code 32 mmol/L 23-31 H = 5618168447) AGAP (test code = 5 2-16 0321334316) BUN (test code = 15 mg/dL 7-23 Slight 2366333902) hemolysis GLUCOSE (test code = 115 mg/dL 70-110 H 6819701447) CREATININE (test code 0.63 mg/dL 0.60-1.25 = 8938327555) CALCIUM (test code = 7.7 mg/dL 8.6-10.6 L 0564602435) eGFR (test code = 128.2 mL/min/1.73m2 9202444126) OMAYRA (test code = OMAYRA) Association of Glomerular Filtration Rate (GFR) and Staging of Kidney Disease* + -----+ --------+ +| GFR (mL/min/1.73 m2) ?| With Kidney Damage ?| ?Without Kidney Damage+ +------- +---- --+| ?>90 ?| ?Stage one ?| ? Normal ?+ ------+ ---------+--------- +| ?60-89 ?| ?Stage two ?| ? Decreased GFR ? + -----+ --------+ +| ?30-59 ?| ?Stage three ?| ? Stage three ? + -----+ --------+ +| ?15-29 ?| ?Stage four ? | ? Stage four ?+ ------+ ---------+--------- +| ?<15 (or dialysis) ? ?| ?Stage five ? | ? Stage five ?+ ------+ ---------+--------- + *Each stage assumes the associated GFR level [...] tests). Lab Interpretation Abnormal (test code = 72863-6) [facility] StationMagnesium [id number] 10:44:53 Test Item Value Reference Range Interpretation Comments MAGNESIUM (test code = 3831190400) 1.6 mg/dL 1.7-2.4 L Lab Interpretation (test code = Abnormal 40166-4) [facility] with Sdzbkkewrjnk6603-45-44 10:39:13 Test Item Value Reference Range Interpretation Comments WBC (test code = 11.40 See_Comment H [Automated 6690-2) message] The system which generated this result transmit anirudh reference range : 4.20 - 10.70 10*3/?L. The reference range was not used to interpret this result as normal/abnormal . RBC (test code = 4.56 See_Comment [Automated 789-8) message] The system which generated this result transmit anirudh reference range : 4.26 - 5.52 10*6/?L. The reference range was not used to interpret this result as normal/abnormal . HGB (test code = 13.7 g/dL 12.2-16.4 718-7) HCT (test code = 41.4 % 38.4-49.3 4544-3) MCV (test code = 90.8 fL 81.7-95.6 787-2) MCH (test code = 30.0 pg 26.1-32.7 785-6) MCHC (test code = 33.1 g/dL 31.2-35.0 786-4) RDW-SD (test code = 45.4 fL 38.5-51.6 52524-0) RDW-CV (test code = 13.6 % 12.1-15.4 788-0) PLT (test code = 254 See_Comment [Automated 777-3) message] The system which generated this result transmit anirudh reference range : 150 - 328 10*3/ ?L. The reference range was not u sed to interpret th is result as normal/abnormal . MPV (test code = 10.2 fL 9.8-13.0 47508-9) NRBC/100 WBC (test 0.0 See_Comment [Automat ed code = [id number]) message] The system which generated this result transmit anirudh reference range : 0.0 - 10.0 /100 WBCs. The reference range was not used to interpret this result as normal/abnormal . NRBC x10^3 (test code See_Comment [Auto mated = [id number]) message] The system which generated this result transmit anirudh reference range : 10*3/?L. The reference range was not used to interpret this result as normal/abnormal . GRAN MAT (NEUT) % 90.0 % (test code = 770-8) IMM GRAN % (test code 0.90 % = [id number]) LYMPH % (test code = 5.9 % 736-9) MONO % (test code = 2.8 % 5905-5) EOS % (test code = 0.2 % 713-8) BASO % (test code = 0.2 % 706-2) GRAN MAT x10^3(ANC) 10.27 10*3/uL 1.99-6.95 H (test code = [id number]) IMM GRAN x10^3 (test 0.10 10*3/uL 0.00-0.06 H code = [id number]) LYMPH x10^3 (test code 0.67 10*3/uL 1.09-3.23 L = 731-0) MONO x10^3 (test code 0.32 10*3/uL 0.36-1.02 L = 742-7) EOS x10^3 (test code = 0.06-0.53 L 711-2) BASO x10^3 (test code 0.01-0.09 = 704-7) Lab Interpretation Abnormal (test code = 09382-8) [facility] METABOLIC PANEL (NA, K, CL, CO2, GLUCOSE, BUN, CREATININE, CA)2022-12-02 06:20:42 Test Item Value Reference Range Interpretation Comments NA (test code = 124 mmol/L 135-145 L 4526505016) K (test code = 4.5 mmol/L 3.5-5.0 2395501659) CL (test code = 78 mmol/L 98-108 L 7882640055) CO2 TOTAL (test code = 37 mmol/L 23-31 H 5843010072) AGAP (test code = 9 2-16 6880518286) BUN (test code = 14 mg/dL 7-23 6374469905) GLUCOSE (test code = 93 mg/dL 70-110 9037507214) CREATININE (test code = 0.71 mg/dL 0.60-1.25 6376620623) CALCIUM (test code = 9.1 mg/dL 8.6-10.6 6547799049) eGFR (test code = 111.7 mL/min/1.73m2 2432610802) OMAYRA (test code = OAMYRA) Association of Glomerular Filtration Rate (GFR) and [...] tests). Lab Interpretation Abnormal (test code = 21140-9) [facility] [id number] 12:22:32 Test Item Value Reference Range Interpretation Comments TROPONIN I (test code = 0.008 ng/mL <=0.034 1883705016) OMAYRA (test code = OMAYRA) Reference (Normal) Range (defined by the 99th percentile reference limit): <= 0.034 ng/mL Note: Cardiac troponin begins to rise 3-4 hours after the onset of ischemia. Repeat in 4-6 hours if the sample was drawn within 3-4 hours of the onset of the symptom and found normal. Diagnosis of myocardial injury is made with acute changes in cTn concentrations with at least one serial sample above the 99th percentile upper reference limit (URL), taken together with the patient's clinical presentation. Biotin has been reported to cause a negative bias, interpret results relative to patient's use of biotin. Lab Interpretation Normal (test code = 74405-2) [facility] METABOLIC PANEL (NA, K, CL, CO2, GLUCOSE, BUN, CREATININE, CA)2022-12-01 12:11:11 Test Item Value Reference Range Interpretation Comments NA (test code = 124 mmol/L 135-145 L 3019197645) K (test code = 4.2 mmol/L 3.5-5.0 0704387932) CL (test code = 79 mmol/L 98-108 L 4629379014) CO2 TOTAL (test code = 37 mmol/L 23-31 H 8777816271) AGAP (test code = 8 2-16 0891436645) BUN (test code = 16 mg/dL 7-23 4578782705) GLUCOSE (test code = 105 mg/dL 70-110 8534466374) CREATININE (test code = 0.67 mg/dL 0.60-1.25 1750828117) CALCIUM (test code = 8.6 mg/dL 8.6-10.6 7125740381) eGFR (test code = 119.4 mL/min/1.73m2 4985203410) OMAYRA (test code = OMAYRA) Association of [...] tests). Lab Interpretation Abnormal (test code = 73638-6) [facility] WITH [id number] 11:59:32 Test Item Value Reference Range Interpretation Comments WBC (test code = 12.17 See_Comment H [Automated 2090-2) message] The system which generated this result transmit anirudh reference range : 4.20 - 10.70 10*3/?L. The reference range was not used to interpret this result as normal/abnormal . RBC (test code = 4.59 See_Comment [Automated 789-8) message] The system which generated this result transmit anirudh reference range : 4.26 - 5.52 10*6/?L. The reference range was not used to interpret this result as normal/abnormal . HGB (test code = 13.7 g/dL 12.2-16.4 718-7) HCT (test code = 41.6 % 38.4-49.3 4544-3) MCV (test code = 90.6 fL 81.7-95.6 787-2) MCH (test code = 29.8 pg 26.1-32.7 785-6) MCHC (test code = 32.9 g/dL 31.2-35.0 786-4) RDW-SD (test code = 43.8 fL 38.5-51.6 01329-4) RDW-CV (test code = 13.2 % 12.1-15.4 788-0) PLT (test code = 208 See_Comment [Automated 777-3) message] The system which generated this result transmit anirudh reference range : 150 - 328 10*3/ ?L. The reference range was not u sed to interpret th is result as normal/abnormal . MPV (test code = 9.8 fL 9.8-13.0 45860-0) NRBC/100 WBC (test 0.0 See_Comment [Automat ed code = 1929565769) message] The system which generated this result transmit anirudh reference range : 0.0 - 10.0 /100 WBCs. The reference range was not used to interpret this result as normal/abnormal . NRBC x10^3 (test code See_Comment [Auto mated = 7742894343) message] The system which generated this result transmit anirudh reference range : 10*3/?L. The reference range was not used to interpret this result as normal/abnormal . GRAN MAT (NEUT) % 85.9 % (test code = 770-8) IMM GRAN % (test code 0.50 % = 3868561888) LYMPH % (test code = 6.8 % 736-9) MONO % (test code = 6.3 % 5905-5) EOS % (test code = 0.3 % 713-8) BASO % (test code = 0.2 % 706-2) GRAN MAT x10^3(ANC) 10.44 10*3/uL 1.99-6.95 H (test code = 5525209409) IMM GRAN x10^3 (test 0.06 10*3/uL 0.00-0.06 code = 6991701005) LYMPH x10^3 (test code 0.83 10*3/uL 1.09-3.23 L = 731-0) MONO x10^3 (test code 0.77 10*3/uL 0.36-1.02 = 742-7) EOS x10^3 (test code = 0.04 10*3/uL 0.06-0.53 L 711-2) BASO x10^3 (test code 0.03 10*3/uL 0.01-0.09 = 704-7) Lab Interpretation Abnormal (test code = 35640-8) [facility] METABOLIC PANEL (NA, K, CL, CO2, GLUCOSE, BUN, CREATININE, CA)2022-11-28 17:17:23 Test Item Value Reference Range Interpretation Comments NA (test code = 120 mmol/L 135-145 L 8831081574) K (test code = 4.3 mmol/L 3.5-5.0 1746362701) CL (test code = 77 mmol/L 98-108 L 3999012132) CO2 TOTAL (test code = 40 mmol/L 23-31 H 5167103239) AGAP (test code = 3 2-16 1683402352) BUN (test code = 15 mg/dL 7-23 1853652140) GLUCOSE (test code = 151 mg/dL 70-110 H 3941405323) CREATININE (test code = 0.63 mg/dL 0.60-1.25 6680513313) CALCIUM (test code = 8.2 mg/dL 8.6-10.6 L 3537882682) eGFR (test code = 128.2 mL/min/1.73m2 1598613047) OMAYRA (test code = OMAYRA) Association of [...] tests). Lab Interpretation Abnormal (test code = 66107-4) [facility] StationMAG[facility]2023-03-12 06:54:10 Test Item Value Reference Range Interpretation Comments MAGNESIUM (test code = 7501974838) 1.6 mg/dL 1.7-2.4 L Lab Interpretation (test code = Abnormal 91653-6) [facility] (NA, K, CL, CO2, GLUCOSE, BUN, CREATININE, CA)2022-11-28 01:29:53 Test Item Value Reference Range Interpretation Comments NA (test code = 120 mmol/L 135-145 L 4361150718) K (test code = 3.9 mmol/L 3.5-5.0 3764112553) CL (test code = 77 mmol/L 98-108 L 7836524922) CO2 TOTAL (test code = 36 mmol/L 23-31 H 7891848843) AGAP (test code = 7 2-16 0590504421) BUN (test code = 17 mg/dL 7-23 8931187428) GLUCOSE (test code = 85 mg/dL 70-110 8163182426) CREATININE (test code = 0.76 mg/dL 0.60-1.25 9971557801) CALCIUM (test code = 8.3 mg/dL 8.6-10.6 L 5133697626) eGFR (test code = 103.3 mL/min/1.73m2 0966614083) OMAYRA (test code = OMAYRA) Association of [...] tests). Lab Interpretation Abnormal (test code = 71666-0) [facility] METABOLIC PANEL (NA, K, CL, CO2, GLUCOSE, BUN, CREATININE, CA)2022-11-27 20:36:26 Test Item Value Reference Range Interpretation Comments NA (test code = 122 mmol/L 135-145 L 5294087823) K (test code = 3.9 mmol/L 3.5-5.0 2941443135) CL (test code = 79 mmol/L 98-108 L 5446990929) CO2 TOTAL (test code = 37 mmol/L 23-31 H 3438076076) AGAP (test code = 6 2-16 1879158306) BUN (test code = 17 mg/dL 7-23 3615839377) GLUCOSE (test code = 113 mg/dL 70-110 H 9979560627) CREATININE (test code = 0.78 mg/dL 0.60-1.25 7073527601) CALCIUM (test code = 7.8 mg/dL 8.6-10.6 L 8279666692) eGFR (test code = 100.2 mL/min/1.73m2 7556088796) OMAYRA (test code = OMAYRA) Association of [...] tests). Lab Interpretation Abnormal (test code = 59855-2) [facility] StationGLYCOSYLATED HEMOGLOBIN (A1C)2022-11-27 18:21:30 Test Item Value Reference Range Interpretation Comments HGB A1C (test code = 5.9 % 4.0-5.7 H 4548-4) OMAYRA (test code = OMAYRA) Reference RangesNormal: <5.7%Prediabetes: 5.7 - 6.4%Diabetes: > 6.5% Lab Interpretation (test Abnormal code = 73149-3) [facility] StationTR[facility]IN [id number] 06:12:58 Test Item Value Reference Range Interpretation Comments TROPONIN I (test code = 0.007 ng/mL <=0.034 6719925172) OMAYRA (test code = OMAYRA) Reference (Normal) Range (defined by the 99th percentile reference limit): <= 0.034 ng/mL Note: Cardiac troponin begins to rise 3-4 hours after the onset of ischemia. Repeat in 4-6 hours if the sample was drawn within 3-4 hours of the onset of the symptom and found normal. Diagnosis of myocardial injury is made with acute changes in cTn concentrations with at least one serial sample above the 99th percentile upper reference limit (URL), taken together with the patient's clinical presentation. Biotin has been reported to cause a negative bias, interpret results relative to patient's use of biotin. Lab Interpretation Normal (test code = 69201-9) [facility] StationETHANOL2023-03-11 06:10:43 ALCOHOL<10mg/dL11/27/2022 12:10 [facility] Ptfhefzw27-012 Toxic>100 Depression of [employer]RI[employer]ION [employer]ER [employer]SEMBLER>400 Fatalities ReportedUnSt[facility]N-TERMINAL [id number] 06:09:37 Test Item Value Reference Range Interpretation Comments NT-proBNP (test code = 311 pg/mL <=125 H 6748853619) OMAYRA (test code = OMAYRA) Biotin has been reported to cause a negative bias, interpret results relative to patient's use of biotin. Lab Interpretation (test Abnormal code = 96827-0) [facility]. METABOLIC PANEL ([id number])2022-11-27 06:08:02 Test Item Value Reference Range Interpretation Comments NA (test code = 116 mmol/L 135-145 LL 5875730618) K (test code = 4.1 mmol/L 3.5-5.0 4759721627) CL (test code = 75 mmol/L 98-108 L 0062790206) CO2 TOTAL (test code = 34 mmol/L 23-31 H 9043551807) AGAP (test code = 7 2-16 3210156257) BUN (test code = 16 mg/dL 7-23 9889877310) GLUCOSE (test code = 70 mg/dL 70-110 0203339738) CREATININE (test code = 0.62 mg/dL 0.60-1.25 8177329517) TOTAL BILI (test code = 1.2 mg/dL 0.1-1.1 H 1103234077) CALCIUM (test code = 8.1 mg/dL 8.6-10.6 L 6417202779) T PROTEIN (test code = 6.3 g/dL 6.3-8.2 9358233976) ALBUMIN (test code = 3.8 g/dL 3.5-5.0 3991918751) ALK PHOS (test code = 58 U/L 34-122 6593898243) ALTv (test code = 15 U/L 5-50 1742-6) AST(SGOT) (test code = 13 U/L 13-40 6036066832) eGFR (test code = 130.6 mL/min/1.73m2 5396254144) OMAYRA (test code = OMAYRA) Association of [...] tests). Lab Interpretation Abnormal (test code = 32039-4) [facility] WITH [id number] 05:45:18 Test Item Value Reference Range Interpretation Comments WBC (test code = 9.18 See_Comment [Automated 0696-2) message] The sy stem which generated this result transmitted reference range : 4.20 - 10.70 10*3/?L. The reference range was not used to interpret this result as normal/abnormal . RBC (test code = 4.49 See_Comment [Automated 098-8) message] The sy stem which generated this result transmitted reference range : 4.26 - 5.52 10*6/?L. The reference range was not used to interpret this result as normal/abnormal . HGB (test code = 13.6 g/dL 12.2-16.4 718-7) HCT (test code = 39.1 % 38.4-49.3 4544-3) MCV (test code = 87.1 fL 81.7-95.6 787-2) MCH (test code = 30.3 pg 26.1-32.7 785-6) MCHC (test code = 34.8 g/dL 31.2-35.0 786-4) RDW-SD (test code = 40.1 fL 38.5-51.6 97847-5) RDW-CV (test code = 12.6 % 12.1-15.4 788-0) PLT (test code = 216 See_Comment [Automated 777-3) message] The sy stem which generated this result transmitted reference range : 150 - 328 10*3/ ?L. The reference r pasquale was not used to interpret this result as normal/abnormal . MPV (test code = 9.4 fL 9.8-13.0 L 35098-6) NRBC/100 WBC (test 0.0 See_Comment [Automat ed code = 5772449850) message] The system which generated this result transmitted reference range : 0.0 - 10.0 /100 WBCs. The refer ence range was not u sed to interpret th is result as normal/abnormal . NRBC x10^3 (test code See_Comment [Auto mated = 4292643367) message] The s ystem which generated this result transmitted reference range : 10*3/?L. The reference range was not used to interpret this result as normal/abnormal . GRAN MAT (NEUT) % 79.1 % (test code = 770-8) IMM GRAN % (test code 0.90 % = 4236547977) LYMPH % (test code = 11.8 % 736-9) MONO % (test code = 6.8 % 5905-5) EOS % (test code = 1.2 % 713-8) BASO % (test code = 0.2 % 706-2) GRAN MAT x10^3(ANC) 7.27 10*3/uL 1.99-6.95 H (test code = 0581568598) IMM GRAN x10^3 (test 0.08 10*3/uL 0.00-0.06 H code = 1271501530) LYMPH x10^3 (test code 1.08 10*3/uL 1.09-3.23 L = 731-0) MONO x10^3 (test code 0.62 10*3/uL 0.36-1.02 = 742-7) EOS x10^3 (test code = 0.11 10*3/uL 0.06-0.53 711-2) BASO x10^3 (test code 0.01-0.09 = 704-7) Lab Interpretation Abnormal (test code = 01518-2) [facility] StationN-TERMINAL [id number] 09:49:54 Test Item Value Reference Range Interpretation Comments NT-proBNP (test code = 294 pg/mL <=125 H 3011752106) OMAYRA (test code = OMAYRA) Biotin has been reported to cause a negative bias, interpret results relative to patient's use of biotin. Lab Interpretation (test Abnormal code = 68189-4) [facility]. METABOLIC PANEL ([id number])2022-11-19 09:41:52 Test Item Value Reference Range Interpretation Comments NA (test code = 120 mmol/L 135-145 L 6636571354) K (test code = 4.4 mmol/L 3.5-5.0 2628643707) CL (test code = 80 mmol/L 98-108 L 2173510230) CO2 TOTAL (test code = 34 mmol/L 23-31 H 2922712364) AGAP (test code = 6 2-16 5267629431) BUN (test code = 10 mg/dL 7-23 8925612257) GLUCOSE (test code = 93 mg/dL 70-110 3825739391) CREATININE (test code = 0.77 mg/dL 0.60-1.25 1552464723) TOTAL BILI (test code = 1.1 mg/dL 0.1-1.4 9386002004) CALCIUM (test code = 8.7 mg/dL 8.6-10.6 3070976967) T PROTEIN (test code = 6.9 g/dL 6.3-8.2 2029342408) ALBUMIN (test code = 4.1 g/dL 3.5-5.0 6427397362) ALK PHOS (test code = 60 U/L 34-122 7856816880) ALTv (test code = 14 U/L 5-50 1742-6) AST(SGOT) (test code = 13 U/L 13-40 1342500611) eGFR (test code = 101.7 mL/min/1.73m2 1909408207) OMAYRA (test code = OMAYRA) Association of [...] tests). Lab Interpretation Abnormal (test code = 30429-6) [facility] WITH [id number] 09:02:29 Test Item Value Reference Range Interpretation Comments WBC (test code = 8.30 See_Comment [Automated 6837-2) message] The sy stem which generated this result transmitted reference range : 4.20 - 10.70 10*3/?L. The reference range was not used to interpret this result as normal/abnormal . RBC (test code = 4.67 See_Comment [Automated 969-4) message] The sy stem which generated this result transmitted reference range : 4.26 - 5.52 10*6/?L. The reference range was not used to interpret this result as normal/abnormal . HGB (test code = 14.0 g/dL 12.2-16.4 718-7) HCT (test code = 41.5 % 38.4-49.3 4544-3) MCV (test code = 88.9 fL 81.7-95.6 787-2) MCH (test code = 30.0 pg 26.1-32.7 785-6) MCHC (test code = 33.7 g/dL 31.2-35.0 786-4) RDW-SD (test code = 42.3 fL 38.5-51.6 30852-4) RDW-CV (test code = 12.9 % 12.1-15.4 788-0) PLT (test code = 252 See_Comment [Automated 777-3) message] The sy stem which generated this result transmitted reference range : 150 - 328 10*3/ ?L. The reference r pasquale was not used to interpret this result as normal/abnormal . MPV (test code = 9.6 fL 9.8-13.0 L 47215-5) NRBC/100 WBC (test 0.0 See_Comment [Automat ed code = 3520916191) message] The system which generated this result transmitted reference range : 0.0 - 10.0 /100 WBCs. The refer ence range was not u sed to interpret th is result as normal/abnormal . NRBC x10^3 (test code See_Comment [Auto mated = 1719831463) message] The s ystem which generated this result transmitted reference range : 10*3/?L. The reference range was not used to interpret this result as normal/abnormal . GRAN MAT (NEUT) % 70.7 % (test code = 770-8) IMM GRAN % (test code 1.00 % = 6646609470) LYMPH % (test code = 16.0 % 736-9) MONO % (test code = 10.5 % 5905-5) EOS % (test code = 1.3 % 713-8) BASO % (test code = 0.5 % 706-2) GRAN MAT x10^3(ANC) 5.87 10*3/uL 1.99-6.95 (test code = 6855980475) IMM GRAN x10^3 (test 0.08 10*3/uL 0.00-0.06 H code = 9651843605) LYMPH x10^3 (test code 1.33 10*3/uL 1.09-3.23 = 731-0) MONO x10^3 (test code 0.87 10*3/uL 0.36-1.02 = 742-7) EOS x10^3 (test code = 0.11 10*3/uL 0.06-0.53 711-2) BASO x10^3 (test code 0.04 10*3/uL 0.01-0.09 = 704-7) Lab Interpretation Abnormal (test code = 65191-8) [facility] METABOLIC PANEL (NA, K, CL, CO2, GLUCOSE, BUN, CREATININE, CA)2022-11-10 23:42:55 Test Item Value Reference Range Interpretation Comments NA (test code = 121 mmol/L 135-145 L 9035003991) K (test code = 4.7 mmol/L 3.5-5.0 5476072760) CL (test code = 82 mmol/L 98-108 L 2681219386) CO2 TOTAL (test code = 34 mmol/L 23-31 H 2906198214) AGAP (test code = 5 2-16 0977707970) BUN (test code = 15 mg/dL 7-23 3827806817) GLUCOSE (test code = 120 mg/dL 70-110 H 5483238604) CREATININE (test code = 0.75 mg/dL 0.60-1.25 6627230520) CALCIUM (test code = 7.7 mg/dL 8.6-10.6 L 6209264195) eGFR (test code = 104.8 mL/min/1.73m2 8329152747) OMAYRA (test code = OMAYRA) Association of [...] tests). Lab Interpretation Abnormal (test code = 69559-7) [facility] METABOLIC PANEL (NA, K, CL, CO2, GLUCOSE, BUN, CREATININE, CA)2022-11-10 17:59:59 Test Item Value Reference Range Interpretation Comments NA (test code = 121 mmol/L 135-145 L 5490596327) K (test code = 4.3 mmol/L 3.5-5.0 2462809345) CL (test code = 81 mmol/L 98-108 L 0155867978) CO2 TOTAL (test code = 38 mmol/L 23-31 H 9062320688) AGAP (test code = 2 2-16 1160395153) BUN (test code = 15 mg/dL 7-23 4673078791) GLUCOSE (test code = 113 mg/dL 70-110 H 5152383930) CREATININE (test code = 0.74 mg/dL 0.60-1.25 5071300955) CALCIUM (test code = 7.5 mg/dL 8.6-10.6 L 0425036799) eGFR (test code = 106.5 mL/min/1.73m2 7468449071) OMAYRA (test code = OMAYRA) Association of [...] tests). Lab Interpretation Abnormal (test code = 92984-2) [facility] [id number] 13:08:23 Test Item Value Reference Range Interpretation Comments NT-proBNP (test code = 177 pg/mL <=125 H 5773122858) OMAYRA (test code = OMAYRA) Biotin has been reported to cause a negative bias, interpret results relative to patient's use of biotin. Lab Interpretation (test Abnormal code = 35986-9) [facility] StationTR[facility] [id number] 08:23:33 Test Item Value Reference Range Interpretation Comments TROPONIN I (test code = 0.004 ng/mL <=0.034 0098139794) OMAYRA (test code = OAMYRA) Reference (Normal) Range (defined by the 99th percentile reference limit): <= 0.034 ng/mL Note: Cardiac troponin begins to rise 3-4 hours after the onset of ischemia. Repeat in 4-6 hours if the sample was drawn within 3-4 hours of the onset of the symptom and found normal. Diagnosis of myocardial injury is made with acute changes in cTn concentrations with at least one serial sample above the 99th percentile upper reference limit (URL), taken together with the patient's clinical presentation. Biotin has been reported to cause a negative bias, interpret results relative to patient's use of biotin. Lab Interpretation Normal (test code = 82317-9) [facility]. METABOLIC PANEL ([id number])2022-11-09 08:12:09 Test Item Value Reference Range Interpretation Comments NA (test code = 123 mmol/L 135-145 L 8629063900) K (test code = 4.2 mmol/L 3.5-5.0 8224504251) CL (test code = 78 mmol/L 98-108 L 7682395666) CO2 TOTAL (test code = 34 mmol/L 23-31 H 0021046556) AGAP (test code = 11 2-16 7079955047) BUN (test code = 8 mg/dL 7-23 4946730213) GLUCOSE (test code = 113 mg/dL 70-110 H 9750032734) CREATININE (test code = 0.87 mg/dL 0.60-1.25 6909011158) TOTAL BILI (test code = 1.2 mg/dL 0.1-1.1 H 5816855937) CALCIUM (test code = 8.8 mg/dL 8.6-10.6 7713927270) T PROTEIN (test code = 7.6 g/dL 6.3-8.2 4605021111) ALBUMIN (test code = 4.5 g/dL 3.5-5.0 0028288790) ALK PHOS (test code = 72 U/L 34-122 8339266357) ALTv (test code = 13 U/L 5-50 1742-6) AST(SGOT) (test code = 13 U/L 13-40 0903748973) eGFR (test code = 88.3 mL/min/1.73m2 8872555374) OMAYRA (test code = OMAYRA) Association of [...] tests). Lab Interpretation Abnormal (test code = 01827-9) [facility] StationLIPASE, [id number] 08:11:14 Test Item Value Reference Range Interpretation Comments LIPASE (test code = 4137325192) 108 U/L 0-220 Lab Interpretation (test code = Normal 10558-2) [facility] Station[facility] WITH [id number] 07:59:28 Test Item Value Reference Range Interpretation Comments WBC (test code = 8.95 See_Comment [Automated message] 4441-2) The system [email or web address] generated this result transmitted ref erence range: 4.20 - 1 0.70 10*3/?L. The re ference range was not u sed to interpret this result as normal/abnor mal. RBC (test code = 5.07 See_Comment [Automated message] 198-8) The system [email or web address] generated this result transmitted ref erence range: 4.26 - 5 .52 10*6/?L. The re ference range was not u sed to interpret this result as normal/abnor mal. HGB (test code = 15.0 g/dL 12.2-16.4 718-7) HCT (test code = 45.7 % 38.4-49.3 4544-3) MCV (test code = 90.1 fL 81.7-95.6 787-2) MCH (test code = 29.6 pg 26.1-32.7 785-6) MCHC (test code = 32.8 g/dL 31.2-35.0 786-4) RDW-SD (test code 41.1 fL 38.5-51.6 = 14650-8) RDW-CV (test code 12.5 % 12.1-15.4 = 788-0) PLT (test code = 235 See_Comment [Automated message] 777-3) The system [employer] generated this result transmitted ref erence range: 150 - 32 8 10*3/?L. The re ference range was not u sed to interpret this result as normal/abnor mal. MPV (test code = 9.8 fL 9.8-13.0 24349-0) NRBC/100 WBC (test 0.0 See_Comment [Automat ed message] code = 3255564287) The syste m which generated this result transmitted ref erence range: 0.0 - 10 .0 /100 WBCs. The refer ence range was not u sed to interpret this result as normal/abnor mal. NRBC x10^3 (test See_Comment [Automated message] code = 3447855967) The syste m which generated this result transmitted ref erence range: 10*3/?L. The reference range was not used to interpr et this result as normal/abnormal . GRAN MAT (NEUT) % 56.9 % (test code = 770-8) IMM GRAN % (test 0.40 % code = 0166908534) LYMPH % (test code 29.4 % = 736-9) MONO % (test code 9.5 % = 5905-5) EOS % (test code = 3.0 % 713-8) BASO % (test code 0.8 % = 706-2) GRAN MAT 5.09 10*3/uL 1.99-6.95 x10^3(ANC) (test code = 2542730734) IMM GRAN x10^3 0.04 10*3/uL 0.00-0.06 (test code = 3230020543) LYMPH x10^3 (test 2.63 10*3/uL 1.09-3.23 code = 731-0) MONO x10^3 (test 0.85 10*3/uL 0.36-1.02 code = 742-7) EOS x10^3 (test 0.27 10*3/uL 0.06-0.53 code = 711-2) BASO x10^3 (test 0.07 10*3/uL 0.01-0.09 code = 704-7) [facility] URINALYSIS, [id number] 19:05:00 Test Item Value Reference Range Interpretation [...] (test code = clear 3267) [facility] URINALYSIS, [id number] 19:05:00 Test Item Value Reference Range Interpretation [...] U APPEAR (test code = clear 3267) [facility], [id number] 19:05:00 Test Item Value Reference Range Interpretation [...] U APPEAR (test code = clear 3267) [facility] ABDOMEN PELVIS W [id number] 17:53:531. ?No hydronephrosis or nephrolithiasis. 2. ?Mild [...] hernia with mild circumferential distalesophageal thickening (2:16). [place] density within the distal stomach andat the [...] BONES: No acute or suspicious osseous abnormality.. Nymb, Radiant Results Inft User - 12/12/2020 12:55 [...] hernia with mild circumferential distalesophageal thickening (2:16). [place] density within the distal stomach andat the [...] small right hydrocele.5. Additional findings as above. [facility] 17:37:38 Test Item Value Reference Range Interpretation Comments APPEARANCE (test code = Cloudy Clear A 9053002244) COLOR (test code = Red Yellow A 8633255903) PH (test code = 4.8-8.0 3095856477) SP GRAVITY (test code = 1.003-1.030 0022740178) GLU U QUAL (test code = 50 mg/dL Normal A [id number]) BLOOD (test code = 3+ Negative A 3314056880) KETONES (test code = Negative Negative 3149992284) PROTEIN (test code = 100 mg/dL Negative A 2887-8) UROBILIN (test code = Normal Normal 4399212571) BILIRUBIN (test code = Negative Negative 0576186877) NITRITE (test code = Negative Negative 2400602305) LEUK DIANELYS (test code = Negative Negative 8891943355) RBC/HPF (test code = >182 See_Comment H [Autom ated message] 3243584161) The system [email or web address] generated this result transmit anirudh reference range : 0 - 3 HPF. The refe rence range was not u sed to interpret th is result as normal/abnormal . WBC/HPF (test code = >182 See_Comment H [Autom ated message] 1222883220) The system [email or web address] generated this result transmit anirudh reference range : 0 - 5 HPF. The refe rence range was not u sed to interpret th is result as normal/abnormal . BACTERIA (test code = Moderate Negative A 8905075180) WBC CLUMPS (test code = See_Comment H [Au tomated message] 7152002808) The system [email or web address] generated this result transmit anirudh reference range : <=1 HPF. The refere nce range was not u sed to interpret th is result as normal/abnormal . Lab Interpretation (test Abnormal code = 78644-7) [facility] (NA, K, CL, CO2, GLUCOSE, BUN, CREATININE, CA)2020-12-12 17:13:57 Test Item Value Reference Range Interpretation Comments NA (test code = 140 mmol/L 135-145 6074138234) K (test code = 4.5 mmol/L 3.5-5.0 8868315599) CL (test code = 100 mmol/L 98-108 7932961136) CO2 TOTAL (test code = 35 mmol/L 23-31 H 8963538956) AGAP (test code = 2-16 3780183282) BUN (test code = 25 mg/dL 7-23 H 3150661544) GLUCOSE (test code = 114 mg/dL 70-110 H 8960205858) CREATININE (test code = 1.18 mg/dL 0.60-1.25 8392348363) CALCIUM (test code = 9.0 mg/dL 8.6-10.6 5507793289) eGFR Calculation mL/min/1.73m2 (Non-) (test code = 6400688261) eGFR Calculation mL/min/1.73m2 () (test code = 2285102667) OMAYRA (test code = OMAYRA) Association of [...] tests). Lab Interpretation Abnormal (test code = 99709-3) [facility] with [id number] 16:56:10 Test Item Value Reference Range Interpretation Comments WBC (test code = See_Comment [Automated 6657-2) message] The sy stem which generated this result transmitted reference range : 4.20 - 10.70 10*3/?L. The reference range was not used to interpret this result as normal/abnormal . RBC (test code = See_Comment [Automated 288-8) message] The sy stem which generated this [...] RDW-SD (test code = 42.9 fL 38.5-51.6 85470-7) RDW-CV (test code = 11.9 % 12.1-15.4 L 788-0) PLT (test code = See_Comment [Automated 777-3) message] The sy stem which generated this result transmitted reference range : 150 - 328 10*3/ ?L. The reference r pasquale was not used to interpret this result as normal/abnormal . MPV (test code = 10.8 fL 9.8-13.0 51121-1) NRBC/100 WBC (test See_Comment [Automat ed code = 0412298682) message] The system which generated this result transmitted reference range : 0.0 - 10.0 /100 WBCs. The refer ence range was not u sed to interpret th is result as normal/abnormal . NRBC x10^3 (test code <0.01 See_Comment [Auto mated = 9300570541) message] The s ystem which generated this result transmitted reference range : 10*3/?L. The reference range was not used to interpret this result as normal/abnormal . GRAN MAT (NEUT) % 63.5 % (test code = 770-8) IMM GRAN % (test code 0.40 % = 5892076859) LYMPH % (test code = 23.9 % 736-9) MONO % (test code = 6.7 % 5905-5) EOS % (test code = 4.3 % 713-8) BASO % (test code = 1.2 % 706-2) GRAN MAT x10^3(ANC) 4.27 10*3/uL 1.99-6.95 (test code = 3227464843) IMM GRAN x10^3 (test 0.03 10*3/uL 0.00-0.06 code = 6984063177) LYMPH x10^3 (test code 1.61 10*3/uL 1.09-3.23 = 731-0) MONO x10^3 (test code 0.45 10*3/uL 0.36-1.02 = 742-7) EOS x10^3 (test code = 0.29 10*3/uL 0.06-0.53 711-2) BASO x10^3 (test code 0.08 10*3/uL 0.01-0.09 = 704-7) Lab Interpretation Abnormal (test code = 18787-8) [facility] URINALYSIS, [id number] 18:56:00 Test Item Value Reference Range Interpretation [...] 3267) Lab Interpretation (test code Abnormal = 54313-8) [facility] URINALYSIS, [id number] 18:56:00 Test Item Value Reference Range Interpretation [...] 3267) Lab Interpretation (test code Abnormal = 60726-2) [facility]ST [id number] 16:22:00 Patient Name: THIERRY MONGE Unit No: [id number] EXAMS: CPT CODE: [id number] XR CHEST 1V 84036 EXAMINATION: - XR CHEST 1V. LOCATION: B2. HISTORY: S/P ICD. COMPARISON: None. TECHNIQUE: Single AP view of the chest was obtained. FINDINGS: The right lung apex is excluded from the wpahd-tb-ozrz. The heart is normal in size. Left AICD device is present. The lungs are clear. No acute osseous abnormality is id entified. IMPRESSION: The right lung apex is excluded from the uobwj-qo-apgi. No acute cardiopulmonary abnormality is identified. 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 N [id number] 13:17:00 Test Item Value Reference Range Interpretation Comments MAGNESIUM (test code = MAG) MG/DL 1.6-2.3 Comments to [employer] Installation Supervisor: NURSE WILL BRING SPECIMEN TO LABIs this a LINE draw? N BASIC METABOLIC [id number] 13:17:00 Test Item Value Reference Range Interpretation [...] 9.1 MG/DL 8.4-10.2 N CA) Comments to [employer] Installation Supervisor: NURSE WILL BRING SPECIMEN TO LABIs this a LINE draw? N [id number] 13:17:00 Test Item Value Reference Range Interpretation Comments MAGNESIUM (test code = MAG) 2.2 MG/DL 1.6-2.3 N Comments to [employer] Installation Supervisor: NURSE WILL BRING SPECIMEN TO LABIs this a LINE draw? N BASIC METABOLIC [id number] 13:16:00 Test Item Value Reference Range Interpretation [...] code = MG/DL 8.7-9.7 CA) Comments to [employer] Installation Supervisor: NURSE WILL BRING SPECIMEN TO LABIs this a LINE draw? N [id number] 13:16:00 Test Item Value Reference Range Interpretation Comments MAGNESIUM (test code = MAG) MG/DL 1.6-2.3 Comments to [employer] Installation Supervisor: NURSE WILL BRING SPECIMEN TO LABIs this a LINE draw? N BASIC METABOLIC [id number] 13:14:00 Test Item Value Reference Range Interpretation [...] code = CA) MG/DL 8.7-9.7 Comments to [employer] Installation Supervisor: NURSE WILL BRING SPECIMEN TO LABIs this a LINE draw? N [id number] 13:14:00 Test Item Value Reference Range Interpretation Comments MAGNESIUM (test code = MAG) MG/DL 1.6-2.3 Comments to [employer] Installation Supervisor: NURSE WILL BRING SPECIMEN TO LABIs this a LINE draw? N BASIC METABOLIC [id number] 13:13:00 Test Item Value Reference Range Interpretation [...] code = CA) MG/DL 8.7-9.7 Comments to [employer] Installation Supervisor: NURSE WILL BRING SPECIMEN TO LABIs this a LINE draw? N [id number] 13:13:00 Test Item Value Reference Range Interpretation Comments MAGNESIUM (test code = MAG) MG/DL 1.6-2.3 Comments to [employer] Installation Supervisor: NURSE WILL BRING SPECIMEN TO LABIs this a LINE draw? N PROTHROMBIN [id number] 13:08:00 Test Item Value Reference Range Interpretation [...] or acute myocar dial infarction. 2.0 - 3.0 3. Skoog Operator al prosthesis hear t valves, recurre nt systemic emboli sm. 3.0 - 4.5 Comments to [employer] Installation Supervisor: NURSE WILL BRING SPECIMEN TO LABPTT ACTIVATED 2020-06-19 13:08:00 Test Item Value Reference Range Interpretation Comments PTT ACTIVATED (test code = APTT) 30.8 SECONDS 25.1-36.5 N Comments to [employer] Installation Supervisor: NURSE WILL BRING SPECIMEN [facility]AUT[facility]FF 2020-06-19 12:51:00 Test Item Value [...] 0.00 K/mm3 0.0-0.1 N NRBC#) Comments to [employer] Installation Supervisor: NURSE WILL BRING SPECIMEN TO LABIs this a LINE draw? N COVID 19 Asymptomatic IH [id number] 12:14:00 Test Item Value Reference Range Interpretation [...] amount of virus (antigen) in the sample." Notes Date/Time Note Provider Source 2020-06-20 06:17:00-00:00 [facility] ([facility]) Cardiology Progress Note REPORT#:[id number] REPORT STATUS: Signed DATE:06/20/20 TIME: 616 PATIENT: THIERRY MONGE UNIT #: [id number] [facility] AGE: 59 SEX: M ATTEND: Geoffrey Mckeon MD ADM AUTHOR: Tyrell Mckeon MD * ALL edits or amendments must be made on the el Zipdial/computer document * Subjective Chief Complaint: AICD Patient reports: No: chest pain, palpitations, shortness of breat h. Objective General VS/I O: 24 hour I O ending at 0700: 06/20 0700 06/19 1900 Intake Total 680 Output Total 200 400 Balance 480 -400 Intake, Oral 680 Number Voids 2 1 Output, Urine 200 400 Vital Signs: Date Time Temp Pulse Resp B/P B/P Pulse O2 O2 F low FiO2 Mean Ox Delivery Rate 06/20 05 97.9 72 18 91/62 71.7 91 Room air 06/19 222 98.1 76 18 109/70 82.7 95 Nasal cannula 06/19 2155 92 Room air 06/19 2002 97.9 75 18 110/71 84.2 92 Room air 06/19 1735 97.7 65 14 122/75 90.4 93 Patient Weight Weight (lb): Weight (oz): Weight (kg): Medications: Active Meds + DC'd Last 24 Hrs Aspirin 81 MG DAILY PO Hydrochlorothiazide 25 MG DAILY PO Lisinopril 10 MG DAILY PO Buspirone HCl 30 MG BID PO Carvedilol 25 MG BID MEALS PO Potassium Chloride 10 MEQ BID PO Ipratropium [place]field 0.5 MG RTQ6H INH Cefazolin Sodium 1,000 MG Q8H IV Sodium Chloride 10 ML Pantoprazole 40 MG DAILY PO Albuterol Sulfate 2.5 MG RTQ4H PRN PRN NEB Tramadol HCl 50 MG DAILY PRN PRN PO Hydrocodone Bitart/Acetaminophen 1 TAB Q4H PRN P RN PO Etomidate 0 .STK-MED ONE .ROUTE (DC) Midazolam HCl 0 .STK-MED ONE .ROUTE (DC) Fentanyl Citrate 0 .STK-MED ONE .ROUTE (DC) Lidocaine 0 .STK-MED ONE .ROUTE (DC) Cefazolin Sodium 0 .STK-MED ONE .ROUTE (DC) Iopamidol 0 .STK-MED ONE .ROUTE (DC) Sodium Chloride 1,000 ML .STK-MED ONE IV (DC) Sodium Chloride 500 ML .STK-MED ONE IV (DC) Lorazepam 1 MG NOW ONE PO (DC) Lorazepam 0 .STK-MED ONE .ROUTE (DC) Sodium Chloride 1,000 ML Q13H IV Physical Exam General appearance: alert, awake, oriented, no a cute distress Head/Eyes: atraumatic, normocephalic ENT: moist mucosal membranes, normal nose, brandee l pharynx Neck: no JVD Cardiovascular: CV assessment: regular rate and rhythm Respiratory: clear to auscultation, no distress Lower extremity: LE assessment: no edema Musculoskeletal: full range of motion Neuro/DISTRIBUTION TRANSFORMER ASSEMBLER: alert, oriented X 3, CN II-XII intact Skin: dry, intact Psychiatry: normal affect, normal judgment/insig ht, normal mood Results Findings/Data: Laboratory Tests 06/19 1241 Chemistry Sodium (137 - 145 MMOL/L) 140 Potassium (3.5 - 5.1 MMOL/L) 4.6 Chloride (98 - 107 MMOL/L) 99 Carbon Dioxide (22 - 30 MMOL/L) 33 H Anion Gap (14 - 24 MMOL/L) 13 L BUN (9 - 20 MG/DL) 18 Creatinine (0.66 - 1.25 MG/DL) 1.10 Glomerular Filtr Rate > 60 Glucose (74 - 106 MG/DL) 78 Calcium (8.4 - 10.2 MG/DL) 9.1 Magnesium (1.6 - 2.3 MG/DL) 2.2 Laboratory Tests 06/19 1241 Coagulation INR 1.2 APTT (25.1 - 36.5 SECONDS) 30.8 PT Patient/Control Mix (9.4 - 12.5 SECONDS) 12 .7 H Laboratory Tests 06/19 1241 Hematology WBC (3.8 - 9.8 K/MM3) 6.5 RBC (3.95 - 5.67 M/MM3) 4.59 Hgb (12.4 - 16.7 G/DL) 14.4 Hct (35.9 - 49.5 %) 46.2 MCV (81.7 - 96.1 fL) 101 H MCH (27.6 - 33.2 pg) 31.4 MCHC (32.9 - 35.5 %) 31.2 L RDW (12.1 - 15.2 %) 12.0 L Plt Count (129 - 368 K/MM3) 176 MPV (7.4 - 10.4 fl) 10.7 H Neut % (Auto) (43 - 75 %) 61.0 Lymph % (Auto) (14 - 44 %) 27.8 Blount % (Auto) (4 - 13 %) 8.6 Eos % (Auto) (0 - 6 %) 1.7 Baso % (Auto) (0 - 2 %) 0.6 Neut # (Auto) (2.0 - 7.6 K/mm3) 3.99 Lymph # (Auto) (1.0 - 3.8 K/mm3) 1.82 Blount # (Auto) (0.1 - 0.8 K/mm3) 0.56 Eos # (Auto) (0.0 - 0.2 K/mm3) 0.11 Baso # (Auto) (0.0 - 0.2 K/mm3) 0.04 Immature Gran % (0.0 - 2.0 %) 0.3 Nucleated RBC % (0 - 1.0 %) 0.0 Nucleated RBCs # (Man) (0.0 - 0.1 K/mm3) 0.00 Laboratory Tests 06/19 1138 Serology SARS-CoV-2 Ag (Rapid) (Negative) NEGATIVE Laboratory Tests 06/19 1241 Chemistry Magnesium (1.6 - 2.3 MG/DL) 2.2 Laboratory Tests 06/19 1241 Coagulation APTT (25.1 - 36.5 SECONDS) 30.8 Radiology data: Recent Impressions: RADIOLOGY - XR CHEST 1V 06/19 1610 Report Impression - Status: SIGNED Entered: 06/19/2020 1625 IMPRESSION: The right lung apex is excluded from the field-o f-view. No acute cardiopulmonary abnormality is identified. Impression By: Puma7 Zo Marshall MD Diagnosis, Assessment Plan Free Text DxA P Notes Free Text DxA P Notes: IMP: Chronic systolic heart failure s/p [employer] AICD - single lead PLAN: AICD interrogation d/c home if stable. at 0818 RPT #:[id number] END OF REPORT 2020-06-19 16:03:00-00:00 [id number] [place] [address] PATIENT NAME: THIERRY MONGE ADMIT DATE: 06/19/20 ACCOUNT NO: [id number] ROOM NO: .[facility] AGE: 59 REPORT TYPE: OPERATIVE REPORT SEX: M ADMITTING PHYSICIAN:Tyrell Mckeon MD ATTENDING PHYSICIAN:Tyrell Mckeon MD OPERATION DATE: 06/19/2020 PROCEDURES: 1. Non-thoracotomy single lead AICD placement. 2. Defibrillation threshold testing. PREOPERATIVE DIAGNOSES: 1. 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 2. Wilkinson Heart Association class III congesti ve heart failure. POSTOPERATIVE DIAGNOSES: 1. 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 2. Wilkinson Heart Association class III congesti ve heart failure. SURGEON: Tyrell Mckeon MD JOINERS SUPERVISOR: None. ANESTHESIA: Local anesthesia with 1% lidocaine a nd moderate sedation. PROCEDURE DETAILS: After informed consent was ob tained explaining to the patient the risks, benefits, and alternatives, t he patient was brought to the cardiac catheterization lab in the fasting postabsorptive state. He was prepped and draped in sterile fashion. Local anesthesia was applied over the infraclavicular area with 1% lidocaine. Access t o left subclavian vein was obtained using modified Seldinger techni que with a micropuncture kit. One wire was placed in low right atrium and secur ed proximally. Additional 1% lidocaine was applied to the infraclavicular area. The poc ket was formed with sharp and blunt dissection as well as electrocautery. The wires brought in to the pocket. The pocket was flushed with antibiotic- containing solution. A 7-Turkmen sheath was advanced over the wire and left subc lavian vein. The dilator and wire were removed. An active fixation right ventri cular lead was advanced via the sheath under fluoroscopic guidance and secured in the right ventricular apex. Adequate pacing and sensing parameters were confirmed. Th e sheath was peeled away. The lead was secured in the pock et with 0 Ethibond suture around the suture sleeve. The pocket was again flushed with antibiotic-containing solution. The generator was connected to lead and pl aced in the pocket. The generator secured in pocket with 0 Ethibond suture. Defibrillation threshold testing was carried out as outlined below. The pocket was closed in 3 layer s using 2-0 Vicryl with subcutaneous layers and 4-0 Vicryl for the skin. Steri-Strips were applied to PATIENT NAME: THIERRY MONGE 21 wound externally. The patient tolerated the proc edure well with no complications. IMPLANT DATA: 1. Pulse generator: [employer] Cory model [id number], s erial #[id number]. 2. Right ventricular lead; [employer] Cory model 7120Q/ 58, serial number [id number]. STIMULATION THRESHOLD DATA: Right ventricle R waves greater than 12 millivolts, impedance 610 ohms, threshold 0.5 volts at 0.4 m illiseconds. DEFIBRILLATION THRESHOLD YENIFER TING: Induction with DC fibber, energy 25.4 joules, charge time 6 seconds, impedance 45 ohms, result sinus rhythm. The patient tolerated the procedure well with no complicatio ns. CONCLUSION: 1. Successful non-thoracotomy single lead AICD p lacement. 2. At least 10 joule defibrillation threshold ma rgin. 3. No complications. Dictated By: Tyrell Mckeon MD WT: OP:KINGS/PEPRUTH/ALEX Conf#: [id number]#: [id number] cc: Rios Tenorio MD Authenticated by Tyrell Mckeon MD On 06/23/20 06:02:06 AM at 0602 PATIENT NAME: THIERRY MONGE 2020-06-19 13:14:00-00:00 [id number] [place] [address] PATIENT NAME: THIERRY MONGE ADMIT DATE: 06/19/20 ACCOUNT NO: [id number] ROOM NO: Z.354 AGE: 59 REPORT TYPE: ELECTROCARDIOGRAM SEX: M ADMITTING PHYSICIAN:Tyrell Mckeon MD ATTENDING PHYSICIAN:Tyrell Mckeon MD Order: [id number] Test Reason : CHF Test Date/Time Stamp: TueJun 19 2020 13:14:54 Blood Pressure : / mmHG Vent. Rate : 060 BPM Atrial Rate : 060 BPM P-R Int : 146 ms QRS Dur : 094 ms QT Int : 430 ms P-R-T Axes : 065 055 070 degree s QTc Int : 430 ms Normal sinus rhythm HIGH VOLTAGES IN PRECORDIAL LEADS Normal ECG No previous ECGs available Confirmed by TIARA BLUE MD ([id number]) on 06/20/2020 11:57:07 AM Referred By: Tyrell Mckeon Confirmed by:TIARA BURROUGHS MD Electronically Signed by Tiara Blue MD on 11/08 at 1157 PATIENT NAME: THIERRY MONGE 021
[2023-03-13 01:01] LABS: Absolute Lymphocytes (CBC) 1.2 K/uL (0.7-4.9); Hematocrit 42.3 % (39.6-49.0); Lymphocytes % 12.9 % (15.3-44.8); MCV 99.5 fL (80-100); MPV 9.1 fL (7.6-11.3); RBC Red Blood Cell Count 4.26 M/uL (4.33-5.43)
[2023-03-13 01:14] LABS: ALT/SGPT 12 U/L (16-61); Albumin 3.2 g/dL (3.4-5.0); Alkaline Phosphatase 82 U/L (45-117); BUN Blood Urea Nitrogen 14 mg/dL (7-18); Bicarbonate 39 mEq/L (21-32); Bilirubin Direct 0.2 mg/dL (0-0.2); Bilirubin Indirect, Calculated 0.3 mg/dL (0.2-0.8); Bilirubin Total 0.5 mg/dL (0.2-1.0); Glomerular Filtration Rate 97 ml/min (=/>90); Glucose Level 136 mg/dL (74-106); Potassium 3.3 mEq/L (3.5-5.1); Protein, Total 6.6 g/dL (6.4-8.2); Sodium Level 133 mEq/L (136-145); Troponin High Sensitivity 6.9 pg/mL (<58.9)
[2023-03-13 01:16] LABS: AST/SGOT < 3 U/L (15-37)
--- NOTE | 2023-03-13 01:34 | ER ---
Nurse's Notes [facility] Name: Juan C Monge Age: 62 yrs Sex: Male : 1960 Arrival Date: 03/12/2023 Time: 23:49 Bed 3 Private MD: Diagnosis: Muscle weakness (generalized);Anorexia Presentation: 03/13 00:54 Chief complaint: Patient states: i wear oxygen at home and i got short of breath. pt lg3 states he was not wearing his oxygen at the time and did not administer any oxygen at home, he came to ED instead. states he has not been wearing oxygen the last 2 days. Coronavirus screen: Client denies travel out of the [place] in the last 14 days. At this time, the client does not indicate any symptoms associated with coronavirus-19. Ebola Screen: No symptoms or risks identified at this time. Initial Sepsis Screen: Does the patient meet any 2 criteria? No. Patient's initial sepsis screen is negative. Does the patient have a suspected source of infection? No. Patient's initial sepsis screen is negative. Risk Assessment: Do you want to hurt yourself or someone else? Patient reports no desire to harm self or others. Onset of symptoms was March 13, 2023. 00:54 Method Of Arrival: Wheelchair lg3 00:54 Acuity: JESSI 4 lg3 Triage Assessment: 01:12 General: Appears in no apparent distress. comfortable, Behavior is calm, cooperative. lg3 Pain: Denies pain. EENT: No deficits noted. No signs and/or symptoms were reported regarding the EENT system. Neuro: No deficits noted. Acosta Agitation-Sedation Scale (RASS): 0 - Alert and Calm Level of Consciousness is awake, alert, obeys commands, Oriented to person, place, time, situation. Cardiovascular: No deficits noted. Denies chest pain, Capillary refill < 3 seconds Clubbing of nail beds is absent JVD is absent Patient's skin is warm and dry. Respiratory: Reports shortness of breath at rest Airway is patent Respiratory effort is even, unlabored, Respiratory pattern is regular, symmetrical, Onset: The symptoms/episode began/occurred today, the patient reports symptoms have resolved. GI: No deficits noted. No signs and/or symptoms were reported involving the gastrointestinal system. Abdomen is flat, non-distended. : No deficits noted. No signs and/or symptoms were reported regarding the genitourinary system. Derm: No deficits noted. No signs and/or symptoms reported regarding the dermatologic system. Skin is intact, is healthy with good turgor, Skin is dry, Skin is normal, Skin temperature is warm. Musculoskeletal: No deficits noted. No signs and/or symptoms reported regarding the musculoskeletal system. Circulation, motion, and sensation intact. Range of motion: intact in all extremities. Historical: - Allergies: 01:12 No Known Allergies; lg3 - PMHx: 01:12 Atrial Fib; COPD; CVA; Hyperlipidemia; Hypertension; Myocardial infarction; skull lg3 fracture; - PSHx: 01:12 defibrillator; Appendectomy; lg3 - Immunization history:: Adult Immunizations up to date, Client reports receiving the 2nd dose of the Covid vaccine, Flu vaccine is up to date. - Social history:: Smoking status: Patient reports the use of cigarette tobacco products, smokes one-half pack cigarettes per day, Patient/guardian denies using alcohol, street drugs. Screenin:14 [facility] ED Fall Risk Assessment (Adult) History of falling in the last 3 months, lg3 including since admission No falls in past 3 months (0 pts). Abuse screen: Denies threats or abuse. Denies injuries from another. Nutritional screening: No deficits noted. Tuberculosis screening: No symptoms or risk factors identified. Assessment: 01:14 General: see triage assessment . lg3 01:14 Cardiovascular: No deficits noted. Rhythm is sinus rhythm. Respiratory: Airway is lg3 patent Respiratory effort is even, unlabored, Respiratory pattern is regular, symmetrical, Breath sounds are clear bilaterally. 01:45 Reassessment: Patient appears in no apparent distress at this time. No changes from lg3 previously documented assessment. Patient and/or family updated on plan of care and expected duration. Pain level reassessed. Patient is alert, oriented x 3, equal unlabored respirations, skin warm/dry/pink. Patient states feeling better. Patient states symptoms have improved. Respiratory: No deficits noted. Airway is patent Respiratory effort is even, unlabored, Respiratory pattern is regular, symmetrical. Vital Signs: 00:47 BP 130 / 90; Pulse 102; Resp 31; Pulse Ox 97% on 2 lpm NC; as7 01:26 BP 102 / 83; Pulse 97; Resp 35 S; Pulse Ox 97% on 2 lpm NC; as7 ED Course: 03/12 23:50 Patient arrived in ED. jj6 23:55 Sam Plasencia PA is PHCP. cp 23:55 Brendon Gaspar DO is Attending Physician. cp 03/13 00:28 XRAY Chest (1 view) In Process Unspecified. EDMS 00:43 Inserted saline lock: 20 gauge in right antecubital area, using aseptic technique. rv1 Blood collected. 00:44 Hepatic Function Sent. rv1 00:44 Basic Metabolic Panel Sent. rv1 00:44 CBC with Diff Sent. rv1 00:44 Troponin HS Sent. rv1 00:57 Laura Cullen, RN is Primary Nurse. lg3 01:12 Triage completed. lg3 01:12 Arm band placed on right wrist. lg3 01:14 No provider procedures requiring assistance completed. lg3 01:14 Patient has correct armband on for positive identification. Placed in gown. Bed in low lg3 position. Call light in reach. Side rails up X 1. Client placed on continuous cardiac and pulse oximetry monitoring. NIBP monitoring applied. hospital monitor on. Door closed. Noise minimized. Warm blanket given. Family accompanied patient. 01:46 IV discontinued, intact, bleeding controlled, No redness/swelling at site. Pressure lg3 dressing applied. Administered Medications: No medications were administered Medication: 01:46 VIS not applicable for this client. lg3 Outcome: 01:33 Discharge ordered by . ms3 01:46 Discharged to home via wheelchair, with significant other. lg3 01:46 Condition: stable 01:46 Discharge instructions given to patient, Instructed on discharge instructions, follow up and referral plans. Demonstrated understanding of instructions, follow-up care. 01:46 Patient left the ED. lg3 Signatures: Dispatcher [employer] EDMS Sam Plasencai PA PA cp Laura Cullen, SERA RN lg3 Brendon Gaspar DO DO ms3 AdelaidaLorraine jj6 Emely Hercules rv1 Nubia Mccormick as7
--- NOTE | 2023-03-13 01:34 | EDPHYS ---
Physician Documentation [facility] Name: Juan C Monge Age: 62 yrs Sex: Male : 1960 Arrival Date: 03/12/2023 Time: 23:49 Bed 3 Private MD: ED Physician Brendon Gaspar HPI: 03/13 01:33 This 62 yrs old Male presents to ER via Wheelchair with complaints of Breathing ms3 Difficulty. 01:33 62-year-old male with past medical history of atrial fibrillation, COPD, CVA, ms3 hyperlipidemia, hypertension, myocardial infarction presents for generalized weakness and not wanting to eat for 2 days. Patient denies fevers, chills, vomiting. Patient endorses nausea. Patient states he is on 2 L of oxygen at home. Patient denies pain at this time. Patient denies alleviating or inciting factors. Historical: - Allergies: 01:12 No Known Allergies; lg3 - PMHx: 01:12 Atrial Fib; COPD; CVA; Hyperlipidemia; Hypertension; Myocardial infarction; skull lg3 fracture; - PSHx: 01:12 defibrillator; Appendectomy; lg3 - Immunization history:: Adult Immunizations up to date, Client reports receiving the 2nd dose of the Covid vaccine, Flu vaccine is up to date. - Social history:: Smoking status: Patient reports the use of cigarette tobacco products, smokes one-half pack cigarettes per day, Patient/guardian denies using alcohol, street drugs. ROS: 01:33 Eyes: Negative for injury, pain, redness, and discharge, Neck: Negative for injury, ms3 pain, and swelling, Cardiovascular: Negative for chest pain, and palpitations. Respiratory: Negative for shortness of breath, cough, wheezing, and pleuritic chest pain, MS/Extremity: Negative for injury and deformity. 01:33 Skin: Negative for injury, rash, and discoloration. 01:33 Constitutional: Positive for malaise, poor PO intake. 01:33 Abdomen/GI: Positive for nausea. 01:33 All other systems are negative. Exam: 01:33 Constitutional: This is a well developed, well nourished patient who is awake, alert, ms3 and in no acute distress. Head/Face: Normocephalic, atraumatic. Neck: Trachea midline, no cervical lymphadenopathy. Supple, full range of motion without nuchal rigidity, or vertebral point tenderness. No Meningismus. Chest/axilla: Normal chest wall appearance and motion. Nontender with no deformity. Cardiovascular: Regular rate and rhythm with a normal S1 and S2. No gallops, murmurs, or rubs. Normal PMI, no JVD. No pulse deficits. Respiratory: Lungs have equal breath sounds bilaterally, clear to auscultation and percussion. No rales, rhonchi or wheezes noted. No increased work of breathing, no retractions or nasal flaring. Abdomen/GI: Soft, non-tender, with normal bowel sounds. No distension or tympany. No guarding or rebound. No evidence of tenderness throughout. Skin: Warm, dry with normal turgor. Normal color with no rashes, no lesions, and no evidence of cellulitis. MS/ Extremity: Pulses equal, no cyanosis. Neurovascular intact. Full, normal range of motion. Neuro: Awake and alert, GCS 15, oriented to person, place, time, and situation. Cranial nerves II-XII grossly intact. Motor strength 5/5 in all extremities. Sensory grossly intact. Cerebellar exam normal. Normal gait. 03:36 ECG was reviewed by the Attending Physician. ms3 Vital Signs: 00:47 BP 130 / 90; Pulse 102; Resp 31; Pulse Ox 97% on 2 lpm NC; as7 01:26 BP 102 / 83; Pulse 97; Resp 35 S; Pulse Ox 97% on 2 lpm NC; as7 MDM: 00:01 Patient medically screened. cp 01:33 Differential diagnosis: Chronic Obstructive Pulmonary Disease Myocardial Infarction ms3 pneumonia. Data reviewed: vital signs, nurses notes, lab test result(s), EKG, radiologic studies, and as a result, I will discharge patient. Independent interpretation of the following test(s) in the Emergency Department EKG: See my EKG interpretation above X-Ray: My interpretation is CXR images reviewed by me do not reveal PNA. Historians other than the Patient: Spouse/Significant Other: . Care significantly affected by the following chronic conditions: Hypertension, Chronic Obstructive Pulmonary Disease. Counseling: I had a detailed discussion with the patient and/or guardian regarding: the historical points, exam findings, and any diagnostic results supporting the discharge/admit diagnosis, lab results, radiology results, the need for outpatient follow up, to return to the emergency department if symptoms worsen or persist or if there are any questions or concerns that arise at home. Counseling: I had a detailed discussion with the patient and/or guardian regarding: smoking cessation. Response to treatment: the patient's symptoms have mildly improved after treatment, and as a result, I will discharge patient. Special discussion: I discussed with the patient/guardian in detail that at this point there is no indication for admission to the hospital. It is understood, however, that if the symptoms persist or worsen the patient needs to return immediately for re-evaluation. ED course: Discussed labs, imaging with patient and his . Patient follow-up with primary care physician in 2 to 3 days. Patient and his understand agree with plan. All questions were answered. Return precautions discussed include worsening symptoms, or any other concerns. 03/13 00:02 Order name: Basic Metabolic Panel; Complete Time: 01:20 ms3 03/13 00:02 Order name: CBC with Diff; Complete Time: 01:20 ms3 03/13 00:02 Order name: Troponin HS; Complete Time: 01:20 ms3 03/13 00:02 Order name: Hepatic Function; Complete Time: 01:20 ms3 03/13 00:02 Order name: XRAY Chest (1 view) 3 03/13 00:02 Order name: EKG; Complete Time: 00:03 3 03/13 00:02 Order name: Cardiac monitoring; Complete Time: 00:33 ms3 03/13 00:02 Order name: EKG - Nurse/Tech; Complete Time: 01:19 ms3 03/13 00:02 Order name: IV Saline Lock; Complete Time: 00:44 ms3 03/13 00:02 Order name: Labs collected and sent; Complete Time: 00: ms3 03/13 00:02 Order name: O2 Per Protocol; Complete Time: 00: ms3 03/13 00:02 Order name: O2 Sat Monitoring; Complete Time: 00: ms EC:36 Rate is 92 beats/min. Rhythm is regular. QRS [place] is Normal. SD interval is normal. QRS ms3 interval is normal. Clinical impression: Normal ECG. Interpreted by me. Reviewed by me. Administered Medications: No medications were administered Disposition Summary: 03/13/23 01:33 Discharge Ordered Location: Home ms3 Condition: Stable ms3 Diagnosis - Muscle weakness (generalized) ms3 - Anorexia ms3 Followup: ms3 - With: Private Physician - When: 2 - 3 days - Reason: Recheck today's complaints Discharge Instructions: - Discharge Summary Sheet ms3 - Weakness ms3 - Protein-Energy Malnutrition ms3 Forms: - Medication Reconciliation Form ms3 - Thank You Letter ms3 - Antibiotic Education ms3 - Prescription Opioid Use ms3 Signatures: Dispatcher [employer] EDMS Sam Plasencia PA PA cp Gibson, Lacie RN RN lg3 Brendon Gaspar DO DO ms3
[2023-03-13 02:07] VITALS: O2SAT 97
[2023-03-13 02:09] VITALS: BP 102/83
--- NOTE | 2023-03-13 14:20 | EKG ---
Test Date: 2023-03-13 Test Time: 01:15:02 Multiple Cut Off Saw Operator: MEASUREMENT RESULTS: Intervals: Rate: 92 AR: 144 QRSD: 88 QT: 372 QTc: 460 [place]: P: 80 AR: 144 QRS: 84 T: 80 INTERPRETIVE STATEMENTS: Normal sinus rhythm Normal ECG Compared to ECG 04/06/2019 11:42:20 Sinus tachycardia no longer present Left ventricular hypertrophy no longer present Electronically Signed On 03-13-23 14:20:02 CDT by Ric Pandya
--- NOTE | 2023-03-14 12:30 | RAD REPORT ---
EXAM DESCRIPTION: Chest Single View CLINICAL HISTORY: The patient is 62 years old and is Male; generalized weakness [facility] MAIN TECHNIQUE: Frontal view of the chest. COMPARISON: No relevant prior studies available. FINDINGS: LUNGS: COPD lung changes. Hazy opacities in the bilateral apices suggesting scarring. No focal consolidation. PLEURAL SPACE: Unremarkable. No pleural effusion. No pneumothorax. HEART: Unremarkable. No cardiomegaly. MEDIASTINUM: Unremarkable. BONES/JOINTS: Unremarkable. TUBES, LINES AND DEVICES: Cardiac stimulator device demonstrated over the left chest with lead term inating over the right ventricle. IMPRESSION: No acute findings in the chest. Electronically signed by: Morales Castellanos MD 03/13/2023 1:01 AM CDT Due to temporary technical issues with the PACS/Fluency reporting system, reports are being signed by the in house radiologist without review as a courtesy to ensure prompt reporting. The interpreting r adiologist is fully responsible for the content of the report.
== END 2023-03-13 01:46 | disposition home or self-care (01) ==
LOC: ER 23:49
DX: M62.81 Muscle weakness (generalized) (principal); R63.0 Anorexia; R53.81 Other malaise; I10 Essential (primary) hypertension; J44.9 Chronic obstructive pulmonary disease, unspecified; I48.91 Unspecified atrial fibrillation; F17.210 Nicotine dependence, cigarettes, uncomplicated; Z95.810 Presence of automatic (implantable) cardiac defibrillator; Z86.73 Personal history of transient ischemic attack (TIA), and cerebral infarction without residual deficits
CPT/HCPCS: 36415; 71045; 80048; 80076; 84484; 85025; 93005; 99284

== ENCOUNTER 2023-03-15 01:30 | Emergency (ER) | payer OTHER ==
--- OUTSIDE RECORDS SUMMARY | 2023-03-15 01:47 | XMS REPORT | Continuity of Care Document ---
:1960 Author Organization [facility] t Address [address] [facility] [address] [place] [address] Care Team Providers Name Role Phone Mily Goodwin MD Primary Care Physician [phone] [place] Attending Clinician Unavailable MARELY WATTERS Attending Clinician Unavailable MARELY WATTERS Attending Clinician Unavailable CARL ORLANDO Attending Clinician Unavailable CARL ORLANDO Attending Clinician Unavailable MILY GOODWIN Attending Clinician Unavailable Doctor Unassigned, [place] Attending Clinician Unavailable Mily Goodwin MD Attending Clinician [phone] Uday ZAMORA, Taylor Mary Attending Clinician [...] Attending Clinician María Diaz DO Attending Clinician MARISOL DEVLIN Attending Clinician Unavailable Marisol Devlin MD [...] Unavailable Leila Chapa MD Attending Clinician Karine FIELD INTERVIEWERJeanette Faith Attending Clinician [facility], [facility] Lab Main Attending Clinician Unavailable Gokul Turner MD Attending Clinician GOKUL TURNER Attending Clinician Unavailable , [facility] Surg Spec Procedure Attending Clinician Unavailable JEANETTE [...] Policy Number Effective Date Expiration Date S [facility] [id number] 2018 MEDICARE GOLD 00:00:00 Problems Condition Condition [...] Active 2013-09 Univers 2-12 ity of 00:00: [place] [address] Medical Branch Atrial Atrial Disease Active 2013-09 Univers fibrillati fibrillati 10-28 it y of on on 00:00: [place] [address] Medical Branch VT VT Disease Active 2013-09 Univers (ventricul (ventricul 10-28 it y of ar ar 00:00: [place] tachycardi tachycardi 00 Me dical a) a) Branch Allergies, Adverse Reactions, Alerts Allergy Allergy Status Severity Reaction(s) Onset Inactive Treating Comm ents Source Name Type Date Date Clinician No Known DA Active U 2019-09 [facility]ie 0 [facility] 00:00: [address] No Known DA Active U 2019-09 [facility] Allergie 0 [facility] 00:00: [address] NO KNOWN Drug Active [facility] ALLERGIE Class ity of S [place] [facility] Social History Social Habit Start Date Stop Date Quantity Comments Source History of tobacco Passive smoker Un iversity of use [place] [facility] History SDOH Social Unive rsity of Connections [facility] Med ical Together Branch History SDOH Social Unive rsity of [facility] Medical Branch History SDOH Social Unive rsity of [facility] Medical Membership Branch History SDOH Social Unive rsity of [facility] Medical Meetings Branch Alcohol intake 2023-03-01 2023-03-01 Current drinker Unive rsity of 00:00:00 00:00:00 of alcohol [place] Medical (finding) Branch History SDOH 2023-02-18 2023-02-18 2 University o f Housing Unable to 00:00:00 00:00:00 [place] M edical Pay Branch History SDOH 2023-02-18 2023-02-18 1 University o f Housing Places 00:00:00 00:00:00 [place] Medi lucho Lived Branch History SDOH 2023-02-18 2023-02-18 2 University o f Housing Homeless 00:00:00 00:00:00 [place] Me dical Last Year Branch History SDOH 2023-02-18 2023-02-18 1 University o f Alcohol Frequency 00:00:00 00:00:00 [place] M edical Branch History SDFL Social 2023-02-18 2023-02-18 5 Unive rsity of Connections Phone 00:00:00 00:00:00 [facility] edical Branch History SDFL Social 2023-02-18 2023-02-18 7 Unive rsity of Connections Living 00:00:00 00:00:00 [place] [facility] History SDFL 2023-02-18 2023-02-18 0 University o f Physical Activity 00:00:00 00:00:00 [facility] edical DPW Branch History SDFL 2023-02-18 2023-02-18 0 University o f Physical Activity 00:00:00 00:00:00 [facility] edical MPS Branch History SDFL 2023-02-18 2023-02-18 5 University o f Financial 00:00:00 00:00:00 [place] [facility] History SDFL Food 2023-02-18 2023-02-18 1 Univers ity of Worry 00:00:00 00:00:00 [place] [facility] History SDFL Food 2023-02-18 2023-02-18 1 Univers ity of Scarcity 00:00:00 00:00:00 [place] [facility] History SDFL 2023-02-18 2023-02-18 2 University o f Transport Med 00:00:00 00:00:00 [place] Medic al Branch History SDFL 2023-02-18 2023-02-18 2 University o f Transport Non-Med 00:00[facility]00 [facility] 2023-02-05 2023-02-15 Not sure University of SARS-CoV-2 (event) 00:00:00 15:15:00 [place] [facility] History SDFL 2022-12-02 2022-12-02 3 University o f Alcohol Std Drinks 00:00:00 00:00:00 [place] [facility] History SDFL 2022-12-02 2022-12-02 1 University o f Alcohol Binge 00:00:00 00:00:00 [place] Medic al Branch Cigarettes smoked 2022-11-09 2022-11-09 Univers ity of current (pack per 00:00:00 00:00:00 [facility] day) - Reported Branch Tobacco use and 2022-11-09 2022-11-09 User of Universit y of exposure 00:00:00 00:00:00 smokeless [facility] tobacco [place] [employer] 2022-11-09 2022-11-09 13 University of 00:00:00 00:00:00 [facility] Alcohol Comment 2014-08-27 2014-08-27 8 drinks per day Uni versity of 00:00:00 00:00:00 [facility] Sex Assigned At [address] [facility] y of 00:00:00 00:00:00 [facility] Smoking Status Start Date Stop Date Source Smokes tobacco daily 2022-11-09 00:00:[address] [facility] Medications Ordered Filled Start Stop Current Ordering Indication Dosage Frequency Signature Comments Components Source Medication Medication Date Date Medication? Clinician (SIG) Name Name albuterol Yes [id number] 2.5mg Inhale 3 Univers 2.5 mg /3 6-15 mL every 4 ity of mL (0.083 00:00: (four) [place] %) 00 hours. May Medical nebulizer also Branch solution nebulize one extra every 6 hours. donepeziL 5 0 Yes [id number] 5mg Take 1 Univers mg tablet 6-13 tablet by ity o f 00:00: mouth in [place] 00 the Medical morning. Branch memantine 5 0 Yes [id number] 5mg Take 1 Univers mg tablet 6-13 tablet by ity o f 00:00: mouth in [place] 00 the Medical morning. Branch donepeziL 5 2022-0 Yes [id number] 5mg Take 1 Univers mg tablet 6-13 tablet by ity o f 00:00: mouth in [place] 00 the Medical morning. Branch memantine 5 0 Yes [id number] 5mg Take 1 Univers mg tablet 6-13 tablet by ity o f 00:00: mouth in [place] 00 the Medical morning. Branch donepeziL 5 0 Yes [id number] 5mg Take 1 Univers mg tablet 6-13 tablet by ity o f 00:00: mouth in [place] 00 the Medical morning. Branch memantine 5 2022-0 Yes [id number] 5mg Take 1 Univers mg tablet 6-13 tablet by ity o f 00:00: mouth in [place] 00 the Medical morning. Branch busPIRone Yes 10mg Take 1 Univer s 10 mg 6-02 tablet by ity of tablet 16:15: mouth in [place] [address] the Medical morning Branch and 1 tablet in the evening. rivaroxaban 2023-0 Yes 15mg Take 1 Univ ers 15 mg 6-02 tablet by ity of tablet 16:15: mouth in [place] [address] the Medical morning. Branch ASPIRIN 2023-0 Yes 81mg Take 81 mg Univ ers ORAL 6-02 by mouth ity of 16:15: in the [place] [address] morning. Medical tablet Branch busPIRone 2023-0 Yes 10mg Take 1 Univer s 10 mg 6-02 tablet by ity of tablet 16:15: mouth in [place] [address] the Medical morning Branch and 1 tablet in the evening. rivaroxaban 2023-0 Yes 15mg Take 1 Univ ers 15 mg 6-02 tablet by ity of tablet 16:15: mouth in [place] [address] the Medical morning. Branch ASPIRIN 2023-0 Yes 81mg Take 81 mg Univ ers ORAL 6-02 by mouth ity of 16:15: in the [place] [address] morning. Medical tablet Branch busPIRone 2023-0 Yes 10mg Take 1 Univer s 10 mg 6-02 tablet by ity of tablet 16:15: mouth in [place] [address] the Medical morning Branch and 1 tablet in the evening. rivaroxaban 2023-0 Yes 15mg Take 1 Univ ers 15 mg 6-02 tablet by ity of tablet 16:15: mouth in [place] [address] the Medical morning. Branch ASPIRIN 2023-0 Yes 81mg Take 81 mg Univ ers ORAL 6-02 by mouth ity of 16:15: in the [place] [address] morning. Medical tablet Branch busPIRone 2023-0 Yes 10mg Take 1 Univer s 10 mg 6-02 tablet by ity of tablet 16:15: mouth in [place] [address] the Medical morning Branch and 1 tablet in the evening. rivaroxaban 2023-0 Yes 15mg Take 1 Univ ers 15 mg 6-02 tablet by ity of tablet 16:15: mouth in [place] [address] the Medical morning. Branch ASPIRIN 2023-0 Yes 81mg Take 81 mg Univ ers ORAL 6-02 by mouth ity of 16:15: in the [place] [address] morning. Medical tablet Branch busPIRone 2023-0 Yes 10mg Take 1 Univer s 10 mg 6-02 tablet by ity of tablet 16:15: mouth in [place] [address] the Medical morning Branch and 1 tablet in the evening. rivaroxaban 2023-0 Yes 15mg Take 1 Univ ers 15 mg 6-02 tablet by ity of tablet 16:15: mouth in [place] [address] the Medical morning. Branch ASPIRIN 2023-0 Yes 81mg Take 81 mg Univ ers ORAL 6-02 by mouth ity of 16:15: in the [place] [address] morning. Medical tablet Branch busPIRone 2023-0 Yes 10mg Take 1 Univer s 10 mg 6-02 tablet by ity of tablet 16:15: mouth in [place] [address] the Medical morning Branch and 1 tablet in the evening. rivaroxaban 2023-0 Yes 15mg Take 1 Univ ers 15 mg 6-02 tablet by ity of tablet 16:15: mouth in [place] [address] the Medical morning. Branch ASPIRIN 2023-0 Yes 81mg Take 81 mg Univ ers ORAL 6-02 by mouth ity of 16:15: in the [place] [address] morning. Medical tablet Branch busPIRone 2023-0 Yes 10mg Take 1 Univer s 10 mg 6-02 tablet by ity of tablet 16:15: mouth in [place] [address] the Medical morning Branch and 1 tablet in the evening. rivaroxaban 2023-0 Yes 15mg Take 1 Univ ers 15 mg 6-02 tablet by ity of tablet 16:15: mouth in [place] [address] the Medical morning. Branch ASPIRIN 3-0 Yes 81mg Take 81 mg Univ ers ORAL 6-02 by mouth ity of 16:15: in the [place] [address] morning. Medical tablet Branch predniSONE 2023-0 2023- Yes [id number] 40mg Take 2 Univers 20 mg 6-02 06-06 tablets by ity of tablet 00:00: 04:59 mouth in [place] 00 :00 the Medical morning Branch for 3 days. predniSONE 2023-0 2023- Yes [id number] 40mg Take 2 Univers 20 mg 6-02 06-06 tablets by ity of tablet 00:00: 04:59 mouth in [place] 00 :00 the Medical morning Branch for 3 days. predniSONE 2023-0 2023- Yes [id number] 40mg Take 2 Univers 20 mg 6-02 06-06 tablets by ity of tablet 00:00: 04:59 mouth in [place] 00 :00 the Medical morning Branch for 3 days. midodrine 5 2023-0 Yes [id number] 5mg Take 1 Univers mg tablet 6-01 tablet by ity o f 00:00: mouth [place] 00 every 8 Medical (eight) Branch hours as needed (Hypotensi on SBP <95 or DBP <50). midodrine 5 2022-0 Yes [id number] 5mg Take 1 Univers mg tablet 6-01 tablet by ity o f 00:00: mouth [place] 00 every 8 Medical (eight) Branch hours as needed (Hypotensi on SBP <95 or DBP <50). midodrine 5 2022-0 Yes [id number] 5mg Take 1 Univers mg tablet 6-01 tablet by ity o f 00:00: mouth [place] 00 every 8 Medical (eight) Branch hours as needed (Hypotensi on SBP <95 or DBP <50). midodrine 5 2022-0 Yes [id number] 5mg Take 1 Univers mg tablet 6-01 tablet by ity o f 00:00: mouth [place] 00 every 8 Medical (eight) Branch hours as needed (Hypotensi on SBP <95 or DBP <50). midodrine 5 2022-0 Yes [id number] 5mg Take 1 Univers mg tablet 6-01 tablet by ity o f 00:00: mouth [place] 00 every 8 Medical (eight) Branch hours as needed (Hypotensi on SBP <95 or DBP <50). midodrine 5 2022-0 Yes [id number] 5mg Take 1 Univers mg tablet 6-01 tablet by ity o f 00:00: mouth [place] 00 every 8 Medical (eight) Branch hours as needed (Hypotensi on SBP <95 or DBP <50). midodrine 5 2022-0 Yes [id number] 5mg Take 1 Univers mg tablet 6-01 [...] 02/16/23 at 0900, Until Discontinu ed, Routine
membership sales advisor approving Restricted medication : DEDRICK TOTH donepeziL [...] Tue02/20/23 at 0900, Routine sulfur 2022- No [id number] 5mL 5 mL, Unive rs hexafluorid 02-16 Intravenou i ty of e microsphr 14:00: 14:00 s, ONCE, 1 [place] (LUMASON) 00 :00 dose, On Medica l injection 5 Tue Branch mL 02/16/23 at 0900, Routine
membership sales advisor approving Restricted medication : STEFFANIE REYES budesonide- 0 Yes 2{puff} 2 Puff, [facility] formoteroL 02-16 Inhalation ity of (SYMBICORT) 13:00: [...] of succ 05:43: 05:51 s, ONCE, 1 [place] (SOLU-MEDRO 00 :00 dose, On Medi lucho [...] mg-3 35 Starting Medical mg(2.5 mg on [facility] base)/3 mL 02/15/23 at nebulizer 1952, solution 3 Until mL Discontinu ed, Routine, Wheezing, Shortness of Breath HYDROcodone 0 Yes 1{tbl} 1 tablet, Univers -acetaminop 02-16 Oral, ity of hen (NORCO) 00:52: Q6HPRN, [place] as 10-325 mg 26 Starting Medica l tablet 1 on [facility] tablet 02/15/23 at 1951, Until Discontinu ed, Routine, Pain (scale 7-10) traMADoL 2022- No 50mg 50 mg, Univer s (ULTRAM) 02-16 06-02 Oral, ity of tablet 50 00:52: 00:51 Q[place]HPRN, [place] mg 22 :22 Starting Medical on [facility] 02/15/23 at 1951, Until [place] 02/17/23 at 1950, Routine, Pain (scale 4-6) acetaminoph 0 Yes 650mg 650 mg, Un igor en 02-16 Oral, ity of (TYLENOL) 00:52: Q6HPRN, [place] tablet 650 16 Starting Medic al mg on [facility] 02/15/23 at 1951, Until Discontinu ed, Routine, [...] mg 02/04/23 at 1615, MICHAEL albuterol Yes [id number] 2{puff} Inhale 2 Univers 90 5-19 Puffs ity of mcg/actuati 00:00: every 4 [place] as on inhaler 00 (four) Medical hours as Branch needed for Wheezing or Shortness of Breath. albuterol Yes [id number] 2{puff} Inhale 2 Univers 90 5-19 Puffs ity of mcg/actuati 00:00: every 4 [place] as on inhaler 00 (four) Medical hours as Branch needed for Wheezing or Shortness of Breath. albuterol Yes [id number] 2{puff} Inhale 2 Univers 90 5-19 Puffs ity of mcg/actuati 00:00: every 4 [place] as on inhaler 00 (four) Medical hours as Branch needed for Wheezing or Shortness of Breath. albuterol Yes [id number] 2{puff} Inhale 2 Univers 90 5-19 Puffs ity of mcg/actuati 00:00: every 4 [place] on inhaler 00 (four) Medical hours as Branch needed for Wheezing or Shortness of Breath. albuterol Yes [id number] 2{puff} Inhale 2 Univers 90 5-19 Puffs ity of mcg/actuati 00:00: every 4 [place] as on inhaler 00 (four) Medical hours as Branch needed for Wheezing or Shortness of Breath. albuterol Yes [id number] 2{puff} Inhale 2 Univers 90 5-19 Puffs ity of mcg/actuati 00:00: every 4 [place] as on inhaler 00 (four) Medical hours as Branch needed for Wheezing or Shortness of Breath. albuterol Yes [id number] 2{puff} Inhale 2 Univers 90 5-19 Puffs ity of mcg/actuati 00:00: every 4 [place] on inhaler 00 (four) Medical hours as Branch needed for Wheezing or Shortness of Breath. albuterol Yes [id number] 2{puff} Inhale 2 Univers 90 5-19 Puffs ity of mcg/actuati 00:00: every 4 [place] as on inhaler 00 (four) Medical hours as Branch needed for Wheezing or Shortness of Breath. albuterol Yes [id number] 2{puff} Inhale 2 Univers 90 5-19 Puffs ity of mcg/actuati 00:00: every 4 [place] as on inhaler 00 (four) Medical hours as Branch needed for Wheezing or Shortness of Breath. albuterol Yes [id number] 2{puff} Inhale 2 Univers 90 5-19 Puffs [...] solution 3 Routine mL albuterol 0 Yes [id number] 2{puff} Inhale 2 Univers 90 5-15 Puffs ity of mcg/actuati 00:00: every 4 [place] as on inhaler 00 (four) Medical hours as Branch needed for Wheezing, Shortness of Breath or Bronchospa sm. fluticasone 2022-0 Yes [id number] 1{puff} Inhale 1 Univers propion-bella 5-15 Puff in ity o f meteroL 00:00: the [place] (ADVAIR 00 morning Medical DISKUS) and 1 Puff Branch 250-50 in the mcg/dose evening. inhalation disk montelukast 2022-0 Yes [id number] 10mg Take 1 Univers 10 mg 5-15 tablet by ity of tablet 00:00: mouth in [place] the Medical morning. Branch tiotropium 0 Yes [id number] 18ug Inhale 1 Univers 18 mcg 5-15 capsule in ity of inhalation 00:00: the [place] 00 morning. Medical Branch albuterol 0 Yes [id number] 2{puff} Inhale 2 Univers 90 5-15 Puffs ity of mcg/actuati 00:00: every 4 [place] as on inhaler 00 (four) Medical hours as Branch needed for Wheezing, Shortness of Breath or Bronchospa sm. fluticasone 2022-0 Yes [id number] 1{puff} Inhale 1 Univers propion-bella 5-15 Puff in ity o f meteroL 00:00: the [place] (ADVAIR 00 morning Medical DISKUS) and 1 Puff Branch 250-50 in the mcg/dose evening. inhalation disk montelukast 2022-0 Yes [id number] 10mg Take 1 Univers 10 mg 5-15 tablet by ity of tablet 00:00: mouth in [place] the Medical morning. Branch tiotropium 2022-0 Yes [id number] 18ug Inhale 1 Univers 18 mcg 5-15 capsule in ity of inhalation 00:00: the [place] 00 morning. Medical Branch albuterol 0 Yes [id number] 2{puff} Inhale 2 Univers 90 5-15 Puffs ity of mcg/actuati 00:00: every 4 [place] as on inhaler 00 (four) Medical hours as Branch needed for Wheezing, Shortness of Breath or Bronchospa sm. fluticasone 2022-0 Yes [id number] 1{puff} Inhale 1 Univers propion-bella 5-15 Puff in ity o f meteroL 00:00: the [place] (ADVAIR 00 morning Medical DISKUS) and 1 Puff Branch 250-50 in the mcg/dose evening. inhalation disk montelukast 2022-0 Yes [id number] 10mg Take 1 Univers 10 mg 5-15 tablet by ity of tablet 00:00: mouth in [place] 00 the Medical morning. Branch tiotropium 2022-0 Yes [id number] 18ug Inhale 1 Univers 18 mcg 5-15 capsule in ity of inhalation 00:00: the [place] 00 morning. Medical Branch albuterol 2022-0 Yes [id number] 2{puff} Inhale 2 Univers 90 5-15 Puffs ity of mcg/actuati 00:00: every 4 [place] as on inhaler 00 (four) Medical hours as Branch needed for Wheezing, Shortness of Breath or Bronchospa sm. fluticasone 2022-0 Yes [id number] 1{puff} Inhale 1 Univers propion-bella 5-15 Puff in ity o f meteroL 00:00: the [place] (ADVAIR 00 morning Medical DISKUS) and 1 Puff Branch 250-50 in the mcg/dose evening. inhalation disk montelukast 2022-0 Yes [id number] 10mg Take 1 Univers 10 mg 5-15 tablet by ity of tablet 00:00: mouth in [place] 00 the morning. Branch tiotropium 2022-0 Yes [id number] 18ug Inhale 1 Univers 18 mcg 5-15 capsule in ity of inhalation 00:00: the [place] 00 morning. Medical Branch fluticasone 2022-0 Yes [id number] 1{puff} Inhale 1 Univers propion-bella 5-15 Puff in ity o f meteroL 00:00: the [place] (ADVAIR 00 morning Medical DISKUS) and 1 Puff Branch 250-50 in the mcg/dose evening. inhalation disk montelukast 2022-0 Yes [id number] 10mg Take 1 Univers 10 mg 5-15 tablet by ity of tablet 00:00: mouth in [place] 00 the Medical morning. Branch tiotropium 2022-0 Yes [id number] 18ug Inhale 1 Univers 18 mcg 5-15 capsule in ity of inhalation 00:00: the [place] 00 morning. Medical Branch fluticasone 2022-0 Yes [id number] 1{puff} Inhale 1 Univers propion-bella 5-15 Puff in ity o f meteroL 00:00: the [place] (ADVAIR 00 morning Medical DISKUS) and 1 Puff Branch 250-50 in the mcg/dose evening. inhalation disk montelukast 2022-0 Yes [id number] 10mg Take 1 Univers 10 mg 5-15 tablet by ity of tablet 00:00: mouth in [place] 00 the Medical morning. Branch tiotropium 2022-0 Yes [id number] 18ug Inhale 1 Univers 18 mcg 5-15 capsule in ity of inhalation 00:00: the [place] 00 morning. Medical Branch fluticasone 2022-0 Yes [id number] 1{puff} Inhale 1 Univers propion-bella 5-15 Puff in ity o f meteroL 00:00: the [place] (ADVAIR 00 morning Medical DISKUS) and 1 Puff Branch 250-50 in the mcg/dose evening. inhalation disk montelukast 2022-0 Yes [id number] 10mg Take 1 Univers 10 mg 5-15 tablet by ity of tablet 00:00: mouth in [place] the morning. Branch tiotropium 2022-0 Yes [id number] 18ug Inhale 1 Univers 18 mcg 5-15 capsule in ity of inhalation 00:00: the [place] 00 morning. Medical Branch fluticasone 2022-0 Yes [id number] 1{puff} Inhale 1 Univers propion-bella 5-15 Puff in ity o f meteroL 00:00: the [place] (ADVAIR 00 morning Medical DISKUS) and 1 Puff Branch 250-50 in the mcg/dose evening. inhalation disk montelukast 2022-0 Yes [id number] 10mg Take 1 Univers 10 mg 5-15 tablet by ity of tablet 00:00: mouth in [place] 00 the Medical morning. Branch tiotropium 2022-0 Yes [id number] 18ug Inhale 1 Univers 18 mcg 5-15 capsule in ity of inhalation 00:00: the [place] 00 morning. Medical Branch fluticasone 2022-0 Yes [id number] 1{puff} Inhale 1 Univers propion-bella 5-15 Puff in ity o f meteroL 00:00: the [place] (ADVAIR 00 morning Medical DISKUS) and 1 Puff Branch 250-50 in the mcg/dose evening. inhalation disk montelukast 2022-0 Yes [id number] 10mg Take 1 Univers 10 mg 5-15 tablet by ity of tablet 00:00: mouth in [place] 00 the Medical morning. Branch tiotropium 2022-0 Yes [id number] 18ug Inhale 1 Univers 18 mcg 5-15 capsule in ity of inhalation 00:00: the [place] 00 morning. Medical Branch fluticasone 2022-0 Yes [id number] 1{puff} Inhale 1 Univers propion-bella 5-15 Puff in ity o f meteroL 00:00: the [place] (ADVAIR 00 morning Medical DISKUS) and 1 Puff Branch 250-50 in the mcg/dose evening. inhalation disk montelukast 2022-0 Yes [id number] 10mg Take 1 Univers 10 mg 5-15 tablet by ity of tablet 00:00: mouth in [place] 00 the Medical morning. Branch tiotropium 2022-0 Yes [id number] 18ug Inhale 1 Univers 18 mcg 5-15 capsule in ity of inhalation 00:00: the [place] 00 morning. Medical Branch fluticasone 2022-0 Yes [id number] 1{puff} Inhale 1 Univers propion-bella 5-15 Puff in ity o f meteroL 00:00: the [place] (ADVAIR 00 morning Medical DISKUS) and 1 Puff Branch 250-50 in the mcg/dose evening. inhalation disk montelukast 2022-0 Yes [id number] 10mg Take 1 Univers 10 mg 5-15 tablet by ity of tablet 00:00: mouth in [place] 00 the Medical morning. Branch tiotropium 2022-0 Yes [id number] 18ug Inhale 1 Univers 18 mcg 5-15 capsule in ity of inhalation 00:00: the [place] 00 morning. Medical Branch fluticasone 2022-0 Yes [id number] 1{puff} Inhale 1 Univers propion-bella 5-15 Puff in ity o f meteroL 00:00: the [place] (ADVAIR 00 morning Medical DISKUS) and 1 Puff Branch 250-50 in the mcg/dose evening. inhalation disk montelukast 3-0 Yes [id number] 10mg Take 1 Univers 10 mg 5-15 tablet by ity of tablet 00:00: mouth in [place] 00 the Medical morning. Branch tiotropium 3-0 Yes [id number] 18ug Inhale 1 Univers 18 mcg 5-15 capsule in ity of inhalation 00:00: the [place] 00 morning. Medical Branch fluticasone 3-0 Yes [id number] 1{puff} Inhale 1 Univers propion-bella 5-15 Puff in ity o f meteroL 00:00: the [place] (ADVAIR 00 morning Medical DISKUS) and 1 Puff Branch 250-50 in the mcg/dose evening. inhalation disk montelukast 2023-0 Yes [id number] 10mg Take 1 Univers 10 mg 5-15 tablet by ity of tablet 00:00: mouth in [place] 00 the Medical morning. Branch tiotropium 2022-0 Yes [id number] 18ug Inhale 1 Univers 18 mcg 5-15 capsule in ity of inhalation 00:00: the [place] 00 morning. Medical Branch fluticasone 2022-0 Yes [id number] 1{puff} Inhale 1 Univers propion-bella 5-15 Puff in ity o f meteroL 00:00: the [place] (ADVAIR 00 morning Medical DISKUS) and 1 Puff Branch 250-50 in the mcg/dose evening. inhalation disk montelukast 3-0 Yes [id number] 10mg Take 1 Univers 10 mg 5-15 tablet by ity of tablet 00:00: mouth in [place] 00 the Medical morning. Branch tiotropium 2022-0 Yes [id number] 18ug Inhale 1 Univers 18 mcg 5-15 capsule in ity of inhalation 00:00: the [place] 00 morning. Medical Branch albuterol 2022-0 2022- No [id number] 2{puff} Inhale 2 Univers 90 5-15 05-19 [...] Branch base)/3 mL 01/29/23 at nebulizer 0930, MIHCAEL solution 3 mL predniSONE 2022-0 2022- No 60mg 60 mg, Univ ers (DELTASONE) 01-29 Oral, ity of tablet 60 13:30: 13:22 ONCE, 1 [place] mg 00 :00 dose, On Medical Sat Branch 01/29/23 at 0830, MICHAEL ipratropium 2022-0 Yes 3mL 3 mL, Unive rs -albuteroL 01-27 Inhalation ity of (DUONEB) 13:00: , QID, [place] 0.5 mg-3 00 First dose Medic al mg(2.5 mg on [place] base)/3 mL 01/27/23 at nebulizer 0800, solution [...] 40 mg 00 :00 dose, On Medical [facility] 01/24/23 Branch at 1300, MICHAEL aspirin 2022-0 2022- No 325mg 325 mg, Unive rs tablet 325 01-24- Oral, ity of mg 18:00: 18:44 ONCE, 1 [place] 00 :00 dose, On Medical [facility] 01/24/23 Branch at 1300, STAT busPIRone 2022-0 Yes 10mg Take 1 Univer s 10 mg 01-24 tablet by ity of tablet 15:48: mouth in [place] 43 the Medical morning Branch and 1 tablet in the evening. rivaroxaban 2023-0 Yes 15mg Take 1 Univ ers 15 mg 5-08 tablet by ity of tablet 15:48: mouth in [place] [address] the Medical morning. Branch ASPIRIN 2023-0 Yes 81mg Take 81 mg Univ ers ORAL 5-08 by mouth ity of 15:48: in the [place] [address] morning. Medical tablet Branch busPIRone 2023-0 Yes 10mg Take 1 [facility] 10 mg 5-08 tablet by ity of tablet 15:48: mouth in [place] [address] the Medical morning Branch and 1 tablet in the evening. rivaroxaban 2023-0 Yes 15mg Take 1 Univ ers 15 mg 5-08 tablet by ity of tablet 15:48: mouth in [place] [address] the Medical morning. Branch ASPIRIN 2023-0 Yes 81mg Take 81 mg Univ ers ORAL 5-08 by mouth ity of 15:48: in the [place] [address] morning. Medical tablet Branch busPIRone 2023-0 Yes 10mg Take 1 [facility] 10 mg 5-08 tablet by ity of tablet 15:48: mouth in [place] [address] the Medical morning Branch and 1 tablet in the evening. rivaroxaban 2023-0 Yes 15mg Take 1 Univ ers 15 mg 5-08 tablet by ity of tablet 15:48: mouth in [place] [address] the Medical morning. Branch ASPIRIN 2023-0 Yes 81mg Take 81 mg Univ ers ORAL 5-08 by mouth ity of 15:48: in the [place] [address] morning. Medical tablet Branch busPIRone 2023-0 Yes 10mg Take 1 [facility] 10 mg 5-08 tablet by ity of tablet 15:48: mouth in [place] [address] the Medical morning Branch and 1 tablet in the evening. rivaroxaban 2023-0 Yes 15mg Take 1 Univ ers 15 mg 5-08 tablet by ity of tablet 15:48: mouth in [place] [address] the Medical morning. Branch ASPIRIN 2023-0 Yes 81mg Take 81 mg Univ ers ORAL 5-08 by mouth ity of 15:48: in the [place] [address] morning. Medical tablet Branch busPIRone 2023-0 Yes 10mg Take 1 [facility] 10 mg 5-08 tablet by ity of tablet 15:48: mouth in [place] [address] the Medical morning Branch and 1 tablet in the evening. rivaroxaban 2023-0 Yes 15mg Take 1 Univ ers 15 mg 5-08 tablet by ity of tablet 15:48: mouth in [place] [address] the Medical morning. Branch ASPIRIN 2023-0 Yes 81mg Take 81 mg Univ ers ORAL 5-08 by mouth ity of 15:48: in the [place] [address] morning. Medical tablet Branch busPIRone 2023-0 Yes 10mg Take 1 [facility] 10 mg 5-08 tablet by ity of tablet 15:48: mouth in [place] [address] the Medical morning Branch and 1 tablet in the evening. rivaroxaban 2023-0 Yes 15mg Take 1 Univ ers 15 mg 5-08 tablet by ity of tablet 15:48: mouth in [place] [address] the Medical morning. Branch ASPIRIN 2023-0 Yes 81mg Take 81 mg Univ ers ORAL 5-08 by mouth ity of 15:48: in the [place] [address] morning. Medical tablet Branch busPIRone 2023-0 Yes 10mg Take 1 [facility] 10 mg 5-08 tablet by ity of tablet 15:48: mouth in [place] [address] the Medical morning Branch and 1 tablet in the evening. rivaroxaban 2023-0 Yes 15mg Take 1 Univ ers 15 mg 5-08 tablet by ity of tablet 15:48: mouth in [place] [address] the Medical morning. Branch ASPIRIN 2023-0 Yes 81mg Take 81 mg Univ ers ORAL 5-08 by mouth ity of 15:48: in the [place] [address] morning. Medical tablet Branch busPIRone 2023-0 Yes 10mg Take 1 [facility] s 10 mg 5-08 tablet by ity of tablet 15:48: mouth in [place] [address] the Medical morning Branch and 1 tablet in the evening. rivaroxaban 2023-0 Yes 15mg Take 1 Univ ers 15 mg 5-08 tablet by ity of tablet 15:48: mouth in [place] [address] the Medical morning. Branch ASPIRIN 2023-0 Yes 81mg Take 81 mg Univ ers ORAL 5-08 by mouth ity of 15:48: in the [place] [address] morning. Medical tablet Branch busPIRone 2023-0 Yes 10mg Take 1 [facility] 10 mg 5-08 tablet by ity of tablet 15:48: mouth in [place] [address] the Medical morning Branch and 1 tablet in the evening. rivaroxaban 2023-0 Yes 15mg Take 1 Univ ers 15 mg 5-08 tablet by ity of tablet 15:48: mouth in [place] [address] the Medical morning. Branch ASPIRIN 2023-0 Yes 81mg Take 81 mg Univ ers ORAL 5-08 by mouth ity of 15:48: in the [place] [address] morning. Medical tablet Branch busPIRone 2023-0 Yes 10mg Take 1 [facility] 10 mg 5-08 tablet by ity of tablet 15:48: mouth in [place] [address] the Medical morning Branch and 1 tablet in the evening. rivaroxaban 2023-0 Yes 15mg Take 1 Univ ers 15 mg 5-08 tablet by ity of tablet 15:48: mouth in [place] [address] the Medical morning. Branch ASPIRIN 2023-0 Yes 81mg Take 81 mg Univ ers ORAL 5-08 by mouth ity of 15:48: in the [place] [address] morning. Medical tablet Branch busPIRone 2023-0 Yes 10mg Take 1 [facility] 10 mg 5-08 tablet by ity of tablet 15:48: mouth in [place] [address] the Medical morning Branch and 1 tablet in the evening. rivaroxaban 2023-0 Yes 15mg Take 1 Univ ers 15 mg 5-08 tablet by ity of tablet 15:48: mouth in [place] [address] the Medical morning. Branch ASPIRIN 2023-0 Yes 81mg Take 81 mg Univ ers ORAL 5-08 by mouth ity of 15:48: in the [place] [address] morning. Medical tablet Branch busPIRone 2023-0 Yes 10mg Take 1 [facility] 10 mg 5-08 tablet by ity of tablet 15:48: mouth in [place] [address] the Medical morning Branch and 1 tablet in the evening. rivaroxaban 2023-0 Yes 15mg Take 1 Univ ers 15 mg 5-08 tablet by ity of tablet 15:48: mouth in [place] [address] the Medical morning. Branch ASPIRIN 2023-0 Yes 81mg Take 81 mg Univ ers ORAL 5-08 by mouth ity of 15:48: in the [place] [address] morning. Medical tablet Branch busPIRone 2023-0 Yes 10mg Take 1 [facility] 10 mg 5-08 tablet by ity of tablet 15:48: mouth in [place] [address] the Medical morning Branch and 1 tablet in the evening. rivaroxaban 2023-0 Yes 15mg Take 1 Univ ers 15 mg 5-08 tablet by ity of tablet 15:48: mouth in [place] [address] the Medical morning. Branch ASPIRIN 2023-0 Yes 81mg Take 81 mg Univ ers ORAL 5-08 by mouth ity of 15:48: in the [place] [address] morning. Medical tablet Branch levalbutero 2023-0 2023- No 1.25mg 1.25 mg, Univers l (XOPENEX) 01-23-06 Inhalation i ty of nebulizer 00:15: 23:35 , ONCE, 1 [place] solution 00 :00 dose, On Medical 1.25 mg 01/22/23 Branch at 1915, Routine ipratropium 2022- No .5mg 0.5 mg, Un igor (ATROVENT) 01-2206 Inhalation it y of 0.02 % 23:30: 23:36 , ONCE, 1 [place] nebulizer 00 :00 dose, On Medica l [...] it y of succ 23:00: s, Q6H, [place] (SOLU-MEDRO 00 First dose Me dical L) [...] Tue01/21/23 at 1445, STAT predniSONE 2022- Yes [id number] 40mg Take 2 [facility] 20 mg 5-04 05-09 tablets by ity of tablet 00:00: 04:59 mouth in [place] 00 :00 the Medical morning Branch for 4 days. predniSONE 2022- Yes [id number] 40mg Take 2 [facility] 20 mg 5-04 05-09 tablets by ity of tablet 00:00: 04:59 mouth in [place] 00 :00 the Medical morning Branch for 4 days. predniSONE 2022- Yes [id number] 40mg Take 2 [facility] 20 mg 5-04 05-09 tablets by ity of tablet 00:00: 04:59 mouth in [place] 00 :00 the [facility] morning Branch for 4 days. predniSONE 2022- Yes [id number] 40mg Take 2 Univers 20 mg 5-04 05-09 tablets by ity of tablet 00:00: 04:59 mouth in [place] 00 :00 the [facility] for 4 days. predniSONE 2022- Yes [id number] 40mg Take 2 Univers 20 mg 5-04 05-09 tablets by ity of tablet 00:00: 04:59 mouth in [place] 00 :00 the [facility] morning Branch for 4 days. predniSONE 2022- Yes [id number] 40mg Take 2 Univers 20 mg 5-04 05-09 tablets by ity of tablet 00:00: 04:59 mouth in [place] 00 :00 the [facility] for 4 days. predniSONE 2022- Yes [id number] 40mg Take 2 Univers 20 mg 5-04 05-09 tablets by ity of tablet 00:00: 04:59 mouth in [place] 00 :00 the [facility] for 4 days. enoxaparin Yes 40mg [...] ity of 0.02 % 21:00: , QID, [place] nebulizer 00 First dose Medi lucho solution (after Branch 0.5 mg last modificati on) on Tue01/19/23 at 1600, Until Discontinu ed, Routine rivaroxaban 3-0 Yes 15mg Take 1 Univ ers 15 mg 5-03 tablet by ity of tablet 19:49: mouth in [place] [address] the Medical morning. Branch ASPIRIN 3-0 Yes 81mg Take 81 mg Univ ers ORAL 5-03 by mouth ity of 19:49: in the [place] [address] morning. Medical tablet Branch busPIRone 3-0 Yes 10mg Take 1 Un[facility] s 10 mg 5-03 tablet by ity of tablet 19:49: mouth in [place] [address] the Medical morning Branch and 1 tablet in the evening. rivaroxaban 3-0 Yes 15mg Take 1 Univ ers 15 mg 5-03 tablet by ity of tablet 19:49: mouth in [place] [address] the Medical morning. Branch ASPIRIN 3-0 Yes 81mg Take 81 mg Univ ers ORAL 5-03 by mouth ity of 19:49: in the [place] [address] morning. Medical tablet Branch busPIRone 3-0 Yes 10mg Take 1 Univer s 10 mg 5-03 tablet by ity of tablet 19:49: mouth in [place] [address] the Medical morning Branch and 1 tablet in the evening. rivaroxaban 3-0 Yes 15mg Take 1 Univ ers 15 mg 5-03 tablet by ity of tablet 19:49: mouth in [place] [address] the Medical morning. Branch ASPIRIN 2023-0 Yes 81mg Take 81 mg Univ ers ORAL 5-03 by mouth ity of 19:49: in the [place] [address] morning. Medical tablet Branch busPIRone 3-0 Yes 10mg Take 1 [facility] s 10 mg 5-03 tablet by ity of tablet 19:49: mouth in [place] [address] the Medical morning Branch and 1 tablet in the evening. rivaroxaban 2023-0 Yes 15mg Take 1 Univ ers 15 mg 5-03 tablet by ity of tablet 19:49: mouth in [place] [address] the Medical morning. Branch ASPIRIN 2023-0 Yes 81mg Take 81 mg Univ ers ORAL 5-03 by mouth ity of 19:49: in the [place] [address] morning. Medical tablet Branch busPIRone 3-0 Yes 10mg Take 1 [facility] s 10 mg 5-03 tablet by ity of tablet 19:49: mouth in [place] [address] the Medical morning Branch and 1 tablet in the evening. rivaroxaban 2023-0 Yes 15mg Take 1 Univ ers 15 mg 5-03 tablet by ity of tablet 19:49: mouth in [place] [address] the Medical morning. Branch ASPIRIN 3-0 Yes 81mg Take 81 mg Univ ers ORAL 5-03 by mouth ity of 19:49: in the [place] [address] morning. Medical tablet Branch busPIRone 3-0 Yes 10mg Take 1 [facility] s 10 mg 5-03 tablet by ity of tablet 19:49: mouth in [place] [address] the Medical morning Branch and 1 tablet in the evening. rivaroxaban 3-0 Yes 15mg Take 1 Univ ers 15 mg 5-03 tablet by ity of tablet 19:49: mouth in [place] [address] the Medical morning. Branch ASPIRIN 3-0 Yes 81mg Take 81 mg Univ ers ORAL 5-03 by mouth ity of 19:49: in the [place] [address] morning. Medical tablet Branch busPIRone 3-0 Yes 10mg Take 1 Univer s 10 mg 5-03 tablet by ity of tablet 19:49: mouth in [place] [address] the Medical morning Branch and 1 tablet in the evening. benazepriL 3-0 2022- No 10mg Take 1 Univ ers 10 mg 5-03 05-03 tablet by ity of tablet 17:28: 00:00 mouth in [place] 05 :00 the Medical morning. Branch potassium 2023-0 2023- No 1{tbl} Take 1 Uni vers chloride 5-03 05-03 tablet by ity o f (KCL-20 17:28: 00:00 mouth in [place] ORAL) 05 :00 the Medical morning Branch [...] of 0.02 % 13:00: 19:13 , TID, [place] nebulizer 00 :37 First dose Medi lucho [...] of 0.02 % 09:00: 12:09 , Q4H, [place] nebulizer 00 :19 First dose Medi lucho [...] 01-19 Oral, ity of (TYLENOL) 08:03: Q6HPRN, [place] tablet 650 35 Starting Medic al mg [...] mg at 0145, MICHAEL ipratropium 2022-0 Yes [id number] .5mg Inhale 2.5 Univers 0.02 % 5-03 mL every 6 ity of nebulizer 00:00: (six) [place] solution 00 hours as Medical needed for Branch Wheezing, Shortness of Breath, Bronchospa sm or Chest tightness. guaiFENesin 3-0 Yes [id number] 200mg Take 10 mL Univers 100 mg/5 mL 5-03 by mouth ity of solution 00:00: every 6 [place] 00 (six) Medical hours as Branch needed for Cough. ipratropium 2023-0 Yes [id number] .5mg Inhale 2.5 Univers 0.02 % 5-03 mL every 6 ity of nebulizer 00:00: (six) [place] solution 00 hours as Medical needed for Branch Wheezing, Shortness of Breath, Bronchospa sm or Chest tightness. guaiFENesin 2023-0 Yes [id number] 200mg Take 10 mL Univers 100 mg/5 mL 5-03 by mouth ity of solution 00:00: every 6 [place] 00 (six) Medical hours as Branch needed for Cough. ipratropium 2023-0 Yes [id number] .5mg Inhale 2.5 Univers 0.02 % 5-03 mL every 6 ity of nebulizer 00:00: (six) [place] solution 00 hours as Medical needed for Branch Wheezing, Shortness of Breath, Bronchospa sm or Chest tightness. guaiFENesin 2023-0 Yes [id number] 200mg Take 10 mL Univers 100 mg/5 mL 5-03 by mouth ity of solution 00:00: every 6 [place] 00 (six) Medical hours as Branch needed for Cough. ipratropium 2023-0 Yes [id number] .5mg Inhale 2.5 Univers 0.02 % 5-03 mL every 6 ity of nebulizer 00:00: (six) [place] solution 00 hours as Medical needed for Branch Wheezing, Shortness of Breath, Bronchospa sm or Chest tightness. guaiFENesin 2023-0 Yes [id number] 200mg Take 10 mL Univers 100 mg/5 mL 5-03 by mouth ity of solution 00:00: every 6 [place] 00 (six) Medical hours as Branch needed for Cough. ipratropium 2023-0 Yes [id number] .5mg Inhale 2.5 Univers 0.02 % 5-03 mL every 6 ity of nebulizer 00:00: (six) [place] solution 00 hours as Medical needed for Branch Wheezing, Shortness of Breath, Bronchospa sm or Chest tightness. guaiFENesin 2023-0 Yes [id number] 200mg Take 10 mL Univers 100 mg/5 mL 5-03 by mouth ity of solution 00:00: every 6 [place] 00 (six) Medical hours as Branch needed for Cough. ipratropium 2023-0 Yes [id number] .5mg Inhale 2.5 Univers 0.02 % 5-03 mL every 6 ity of nebulizer 00:00: (six) [place] solution 00 hours as Medical needed for Branch Wheezing, Shortness of Breath, Bronchospa sm or Chest tightness. guaiFENesin 2023-0 Yes [id number] 200mg Take 10 mL Univers 100 mg/5 mL 5-03 by mouth ity of solution 00:00: every 6 [place] 00 (six) Medical hours as Branch needed for Cough. ipratropium 2023-0 Yes [id number] .5mg Inhale 2.5 Univers 0.02 % 5-03 mL every 6 ity of nebulizer 00:00: (six) [place] solution 00 hours as Medical needed for Branch Wheezing, Shortness of Breath, Bronchospa sm or Chest tightness. guaiFENesin 2023-0 Yes [id number] 200mg Take 10 mL Univers 100 mg/5 mL 5-03 by mouth ity of solution 00:00: every 6 [place] 00 (six) Medical hours as Branch needed for Cough. ipratropium 2023-0 Yes [id number] .5mg Inhale 2.5 Univers 0.02 % 5-03 mL every 6 ity of nebulizer 00:00: (six) [place] solution 00 hours as Medical needed for Branch Wheezing, Shortness of Breath, Bronchospa sm or Chest tightness. guaiFENesin 2023-0 Yes [id number] 200mg Take 10 mL Univers 100 mg/5 mL 5-03 by mouth ity of solution 00:00: every 6 [place] 00 (six) Medical hours as Branch needed for Cough. ipratropium 2023-0 Yes [id number] .5mg Inhale 2.5 Univers 0.02 % 5-03 mL every 6 ity of nebulizer 00:00: (six) [place] solution 00 hours as Medical needed for Branch Wheezing, Shortness of Breath, Bronchospa sm or Chest tightness. guaiFENesin 2023-0 Yes [id number] 200mg Take 10 mL Univers 100 mg/5 mL 5-03 by mouth ity of solution 00:00: every 6 [place] 00 (six) Medical hours as Branch needed for Cough. ipratropium 2023-0 Yes [id number] .5mg Inhale 2.5 Univers 0.02 % 5-03 mL every 6 ity of nebulizer 00:00: (six) [place] solution 00 hours as Medical needed for Branch Wheezing, Shortness of Breath, Bronchospa sm or Chest tightness. guaiFENesin 2023-0 Yes [id number] 200mg Take 10 mL Univers 100 mg/5 mL 5-03 by mouth ity of solution 00:00: every 6 [place] 00 (six) Medical hours as Branch needed for Cough. ipratropium 2023-0 Yes [id number] .5mg Inhale 2.5 Univers 0.02 % 5-03 mL every 6 ity of nebulizer 00:00: (six) [place] solution 00 hours as Medical needed for Branch Wheezing, Shortness of Breath, Bronchospa sm or Chest tightness. guaiFENesin 2023-0 Yes [id number] 200mg Take 10 mL Univers 100 mg/5 mL 5-03 by mouth ity of solution 00:00: every 6 [place] 00 (six) Medical hours as Branch needed for Cough. ipratropium 2023-0 Yes [id number] .5mg Inhale 2.5 Univers 0.02 % 5-03 mL every 6 ity of nebulizer 00:00: (six) [place] solution 00 hours as Medical needed for Branch Wheezing, Shortness of Breath, Bronchospa sm or Chest tightness. guaiFENesin 2023-0 Yes [id number] 200mg Take 10 mL Univers 100 mg/5 mL 5-03 by mouth ity of solution 00:00: every 6 [place] 00 (six) Medical hours as Branch needed for Cough. ipratropium 2023-0 Yes [id number] .5mg Inhale 2.5 Univers 0.02 % 5-03 mL every 6 ity of nebulizer 00:00: (six) [place] solution 00 hours as Medical needed for Branch Wheezing, Shortness of Breath, Bronchospa sm or Chest tightness. guaiFENesin 2023-0 Yes [id number] 200mg Take 10 mL Univers 100 mg/5 mL 5-03 by mouth ity of solution 00:00: every 6 [place] 00 (six) Medical hours as Branch needed for Cough. ipratropium 2023-0 Yes [id number] .5mg Inhale 2.5 Univers 0.02 % 5-03 mL every 6 ity of nebulizer 00:00: (six) [place] solution 00 hours as Medical needed for Branch Wheezing, Shortness of Breath, Bronchospa sm or Chest tightness. guaiFENesin 2023-0 Yes [id number] 200mg Take 10 mL Univers 100 mg/5 mL 5-03 by mouth ity of solution 00:00: every 6 [place] [address] (six) Medical hours as Branch needed for Cough. ipratropium 2023-0 Yes [id number] .5mg Inhale 2.5 Univers 0.02 % 5-03 mL every 6 ity of nebulizer 00:00: (six) [place] solution 00 hours as Medical needed for Branch Wheezing, Shortness of Breath, Bronchospa sm or Chest tightness. guaiFENesin 2023-0 Yes [id number] 200mg Take 10 mL Univers 100 mg/5 mL 5-03 by mouth ity of solution 00:00: every 6 [place] 00 (six) Medical hours as Branch needed for Cough. ipratropium 2023-0 Yes [id number] .5mg Inhale 2.5 Univers 0.02 % 5-03 mL every 6 ity of nebulizer 00:00: (six) [place] solution 00 hours as Medical needed for Branch Wheezing, Shortness of Breath, Bronchospa sm or Chest tightness. guaiFENesin 2023-0 Yes [id number] 200mg Take 10 mL Univers 100 mg/5 mL 5-03 by mouth ity of solution 00:00: every 6 [place] 00 (six) Medical hours as Branch needed for Cough. ipratropium 2023-0 Yes [id number] .5mg Inhale 2.5 Univers 0.02 % 5-03 mL every 6 ity of nebulizer 00:00: (six) [place] solution 00 hours as Medical needed for Branch Wheezing, Shortness of Breath, Bronchospa sm or Chest tightness. guaiFENesin 2023-0 Yes [id number] 200mg Take 10 mL Univers 100 mg/5 mL 5-03 by mouth ity of solution 00:00: every 6 [place] 00 (six) Medical hours as Branch needed for Cough. ipratropium 2023-0 Yes [id number] .5mg Inhale 2.5 Univers 0.02 % 5-03 mL every 6 ity of nebulizer 00:00: (six) [place] solution 00 hours as Medical needed for Branch Wheezing, Shortness of Breath, Bronchospa sm or Chest tightness. guaiFENesin 2023-0 Yes [id number] 200mg Take 10 mL Univers 100 mg/5 mL 5-03 by mouth ity of solution 00:00: every 6 [place] 00 (six) Medical hours as Branch needed for Cough. ipratropium 2023-0 Yes [id number] .5mg Inhale 2.5 Univers 0.02 % 5-03 mL every 6 ity of nebulizer 00:00: (six) [place] solution 00 hours as Medical needed for Branch Wheezing, Shortness of Breath, Bronchospa sm or Chest tightness. guaiFENesin 2023-0 Yes [id number] 200mg Take 10 mL Univers 100 mg/5 mL 5-03 by mouth ity of solution 00:00: every 6 [place] 00 (six) Medical hours as Branch needed for Cough. guaiFENesin 2023-0 Yes [id number] 200mg Take 10 mL Univers 100 mg/5 mL 5-03 by mouth ity of solution 00:00: every 6 [place] 00 (six) Medical hours as Branch needed for Cough. guaiFENesin 2023-0 Yes [id number] 200mg Take 10 mL Univers 100 mg/5 mL 5-03 by mouth ity of solution 00:00: every 6 [place] 00 (six) Medical hours as Branch needed for Cough. guaiFENesin 2023-0 Yes [id number] 200mg Take 10 mL Univers 100 mg/5 mL 5-03 by mouth ity of solution 00:00: every 6 [place] 00 (six) Medical hours as Branch needed for Cough. guaiFENesin 2023-0 Yes [id number] 200mg Take 10 mL Univers 100 mg/5 mL 5-03 by mouth ity of solution 00:00: every 6 [place] 00 (six) Medical hours as Branch needed for Cough. guaiFENesin 2023-0 Yes [id number] 200mg Take 10 mL Univers 100 mg/5 mL 5-03 by mouth ity of solution 00:00: every 6 [place] 00 (six) Medical hours as Branch needed for Cough. guaiFENesin 2023-0 Yes [id number] 200mg Take 10 mL Univers 100 mg/5 mL 5-03 by mouth ity of solution 00:00: every 6 [place] 00 (six) Medical hours as Branch needed for Cough. guaiFENesin 2023-0 Yes [id number] 200mg Take 10 mL Univers 100 mg/5 mL 5-03 by mouth ity of solution 00:00: every 6 [place] 00 (six) Medical hours as Branch needed for Cough. ipratropium 2023-0 2023- No [id number] .5mg Inhale 2.5 Univers 0.02 % 5-03 06-01 mL every 6 ity of nebulizer 00:00: 00:00 (six) [place] solution 00 :00 hours as Medical needed for Branch Wheezing, Shortness of Breath, Bronchospa sm or Chest tightness. levoFLOXaci 2022- Yes [id number] 500mg Take 1 Univers n 500 mg 5- 05-08 tablet by ity o f tablet 00:00: 04:59 mouth in [place] 00 :00 the [facility] for 4 days. levoFLOXaci 2022- Yes [id number] 500mg Take 1 Univers n 500 mg 5- 05-08 tablet by ity o f tablet 00:00: 04:59 mouth in [place] 00 :00 the [facility] for 4 days. levoFLOXaci 2022- Yes [id number] 500mg Take 1 Univers n 500 mg -11 21-08 tablet by ity o f tablet 00:00: 04:59 mouth in [place] 00 :00 the [facility] for 4 days. levoFLOXaci 2022- Yes [id number] 500mg Take 1 Univers n 500 mg 5-11 21-08 tablet by ity o f tablet 00:00: 04:59 mouth in [place] 00 :00 the [facility] for 4 days. levoFLOXaci 2022- Yes [id number] 500mg Take 1 Univers n 500 mg - 05-08 tablet by ity o f tablet 00:00: 04:59 mouth in [place] 00 :00 the [facility] for 4 days. levoFLOXaci 2022- Yes [id number] 500mg Take 1 Univers n 500 mg - 05-08 tablet by ity o f tablet 00:00: 04:59 mouth in [place] 00 :00 [facility] for 4 days. levalbutero 2022- No 1.25mg 1.25 mg, Univers l (XOPENEX) 01-17 Inhalation i ty of nebulizer 13:00: 11:56 , TID, [place] solution 00 :39 First dose Medic al 1.25 mg on Tue Branch 01/17/23 at 0800, Until Discontinu ed, Routine methylpredn 2022- No 125mg 125 mg, U nivers isolone sod 01-17 Intravenou i ty of succ 12:00: 11:11 s, ONCE, 1 [place] (SOLU-MEDRO 00 :00 dose, On Medi lucho L) Tue01/17/23 Branch injection at 0700, 2 125 mg mL ipratropium 2022-0 No .5mg 0.5 mg, Un ig[facility] (ATROVENT) 5- 05-01 Inhalation it y of 0.02 % 11:45: 11:42 , ONCE, 1 [place] nebulizer 00 :00 dose, On Medica l solution Tue01/17/23 Branc h 0.5 mg at 0645, MICHAEL albuterol 2022-0 Yes [id number] 2{puff} Inhale 2 Univers 90 5-01 Puffs ity of mcg/actuati 00:00: every 4 [place] as on inhaler 00 (four) Medical hours as Branch needed for Wheezing or Shortness of Breath. albuterol 2022-0 Yes [id number] 2.5mg Inhale 3 Univers 2.5 mg /3 5-01 mL every 4 ity of mL (0.083 00:00: (four) [place] %) 00 hours. May Medical nebulizer also Branch solution nebulize one extra every 6 hours. predniSONE 2022-0 Yes [id number] 50mg Take 1 Univers 50 mg 5-01 tablet by ity of tablet 00:00: mouth in [place] 00 the Medical morning. Branch benzonatate 2022-0 Yes [id number] 200mg Take 1 Univers 200 mg 5-01 capsule by ity of capsule 00:00: mouth 3 [place] 00 (three) Medical times Branch daily as needed for Cough. ipratropium 2022-0 Yes [id number] .5mg Inhale 2.5 Univers 0.02 % 5-01 mL every 6 ity of nebulizer 00:00: (six) [place] solution 00 hours as Medical needed for Branch Wheezing, Shortness of Breath, Bronchospa sm or Chest tightness. albuterol 2022-0 Yes [id number] 2{puff} Inhale 2 Univers 90 5-01 Puffs ity of mcg/actuati 00:00: every 4 [place] as on inhaler 00 (four) Medical hours as Branch needed for Wheezing or Shortness of Breath. albuterol 2022-0 Yes [id number] 2.5mg Inhale 3 Univers 2.5 mg /3 5-01 mL every 4 ity of mL (0.083 00:00: (four) [place] %) 00 hours. May Medical nebulizer also Branch solution nebulize one extra every 6 hours. benzonatate 2022-0 Yes [id number] 200mg Take 1 Univers 200 mg 5-01 capsule by ity of capsule 00:00: mouth 3 [place] 00 (three) Medical times Branch daily as needed for Cough. albuterol 2022-0 Yes [id number] 2{puff} Inhale 2 Univers 90 5-01 Puffs ity of mcg/actuati 00:00: every 4 [place] as on inhaler 00 (four) Medical hours as Branch needed for Wheezing or Shortness of Breath. albuterol 2022-0 Yes [id number] 2.5mg Inhale 3 Univers 2.5 mg /3 5-01 mL every 4 ity of mL (0.083 00:00: (four) [place] %) 00 hours. May Medical nebulizer also Branch solution nebulize one extra every 6 hours. benzonatate 2022-0 Yes [id number] 200mg Take 1 Univers 200 mg 5-01 capsule by ity of capsule 00:00: mouth 3 [place] 00 (three) Medical times Branch daily as needed for Cough. albuterol 2022-0 Yes [id number] 2{puff} Inhale 2 Univers 90 5-01 Puffs ity of mcg/actuati 00:00: every 4 [place] as on inhaler 00 (four) Medical hours as Branch needed for Wheezing or Shortness of Breath. albuterol 2022-0 Yes [id number] 2.5mg Inhale 3 Univers 2.5 mg /3 5-01 mL every 4 ity of mL (0.083 00:00: (four) [place] %) 00 hours. May Medical nebulizer also Branch solution nebulize one extra every 6 hours. benzonatate 3-0 Yes [id number] 200mg Take 1 [facility] 200 mg 5-01 capsule by [facility] of capsule 00:00: mouth 3 [place] 00 (three) Medical times Branch daily as needed for Cough. albuterol 2022-0 Yes [id number] 2{puff} Inhale 2 [facility] 90 5-01 Puffs ity of mcg/actuati 00:00: every 4 [place] on inhaler 00 (four) Medical hours as Branch needed for Wheezing or Shortness of Breath. albuterol 3-0 Yes [id number] 2.5mg Inhale 3 [facility] 2.5 mg /3 5-01 mL every 4 ity of mL (0.083 00:00: (four) [place] %) 00 hours. May Medical nebulizer also Branch solution nebulize one extra every 6 hours. benzonatate 3-0 Yes [id number] 200mg Take 1 [facility] 200 mg 5-01 capsule by ity of capsule 00:00: mouth 3 [place] 00 (three) Medical times Branch daily as needed for Cough. albuterol 3-0 Yes [id number] 2{puff} Inhale 2 [facility] 90 5-01 Puffs ity of mcg/actuati 00:00: every 4 [place] on inhaler 00 (four) Medical hours as Branch needed for Wheezing or Shortness of Breath. albuterol 3-0 Yes [id number] 2.5mg Inhale 3 [facility] 2.5 mg /3 5-01 mL every 4 ity of mL (0.083 00:00: (four) [place] %) 00 hours. May Medical nebulizer also Branch solution nebulize one extra every 6 hours. benzonatate 3-0 Yes [id number] 200mg Take 1 [facility] 200 mg 5-01 capsule by ity of capsule 00:00: mouth 3 [place] 00 (three) Medical times Branch daily as needed for Cough. albuterol 3-0 Yes [id number] 2{puff} Inhale 2 [facility] 90 5-01 Puffs ity of mcg/actuati 00:00: every 4 [place] on inhaler 00 (four) Medical hours as Branch needed for Wheezing or Shortness of Breath. albuterol 2023-0 Yes [id number] 2.5mg Inhale 3 [facility] 2.5 mg /3 5-01 mL every 4 ity of mL (0.083 00:00: (four) [place] %) 00 hours. May Medical nebulizer also Branch solution nebulize one extra every 6 hours. benzonatate 3-0 Yes [id number] 200mg Take 1 [facility] 200 mg 5-01 capsule by ity of capsule 00:00: mouth 3 [place] 00 (three) Medical times Branch daily as needed for Cough. albuterol 3-0 Yes [id number] 2{puff} Inhale 2 [facility] 90 5-01 Puffs ity of mcg/actuati 00:00: every 4 [place] on inhaler 00 (four) Medical hours as Branch needed for Wheezing or Shortness of Breath. albuterol 2022-0 Yes [id number] 2.5mg Inhale 3 [facility] 2.5 mg /3 5-01 mL every 4 ity of mL (0.083 00:00: (four) [place] %) 00 hours. May Medical nebulizer also Branch solution nebulize one extra every 6 hours. benzonatate 2022-0 Yes [id number] 200mg Take 1 [facility] 200 mg 5-01 capsule by it[facility] of capsule 00:00: mouth 3 [place] 00 (three) Medical times Branch daily as needed for Cough. albuterol 2022-0 Yes [id number] 2{puff} Inhale 2 [facility] 90 5-01 Puffs ity of mcg/actuati 00:00: every 4 [place] on inhaler 00 (four) Medical hours as Branch needed for Wheezing or Shortness of Breath. albuterol 2022-0 Yes [id number] 2.5mg Inhale 3 [facility] 2.5 mg /3 5-01 mL every 4 ity of mL (0.083 00:00: (four) [place] %) 00 hours. May Medical nebulizer also Branch solution nebulize one extra every 6 hours. benzonatate 2022-0 Yes [id number] 200mg Take 1 [facility] 200 mg 5-01 capsule by ity of capsule 00:00: mouth 3 [place] 00 (three) Medical times Branch daily as needed for Cough. albuterol 2022-0 Yes [id number] 2{puff} Inhale 2 [facility] 90 5-01 Puffs ity of mcg/actuati 00:00: every 4 [place] on inhaler 00 (four) Medical hours as Branch needed for Wheezing or Shortness of Breath. albuterol 3-0 Yes [id number] 2.5mg Inhale 3 [facility] 2.5 mg /3 5-01 mL every 4 ity of mL (0.083 00:00: (four) [place] %) 00 hours. May Medical nebulizer also Branch solution nebulize one extra every 6 hours. benzonatate 2022-0 Yes [id number] 200mg Take 1 [facility] 200 mg 5-01 capsule by it[facility] of capsule 00:00: mouth 3 (three) Medical times Branch daily as needed for Cough. albuterol 2022-0 Yes [id number] 2{puff} Inhale 2 [facility] 90 5-01 Puffs ity of mcg/actuati 00:00: every 4 [place] on inhaler 00 (four) Medical hours as Branch needed for Wheezing or Shortness of Breath. albuterol 2022-0 Yes [id number] 2.5mg Inhale 3 [facility] 2.5 mg /3 5-01 mL every 4 ity of mL (0.083 00:00: (four) [place] %) 00 hours. May Medical nebulizer also Branch solution nebulize one extra every 6 hours. benzonatate 2022-0 Yes [id number] 200mg Take 1 [facility] 200 mg 5-01 capsule by ity of capsule 00:00: mouth 3 (three) Medical times Branch daily as needed for Cough. albuterol 2022-0 Yes [id number] 2{puff} Inhale 2 [facility] 90 5-01 Puffs ity of mcg/actuati 00:00: every 4 [place] on inhaler 00 (four) Medical hours as Branch needed for Wheezing or Shortness of Breath. albuterol 2022-0 Yes [id number] 2.5mg Inhale 3 [facility] 2.5 mg /3 5-01 mL every 4 ity of mL (0.083 00:00: (four) [place] %) 00 hours. May Medical nebulizer also Branch solution nebulize one extra every 6 hours. benzonatate 2022-0 Yes [id number] 200mg Take 1 [facility] 200 mg 5-01 capsule by ity of capsule 00:00: mouth 3 (three) Medical times Branch daily as needed for Cough. albuterol 2022-0 Yes [id number] 2{puff} Inhale 2 [facility] 90 5-01 Puffs ity of mcg/actuati 00:00: every 4 [place] on inhaler 00 (four) Medical hours as Branch needed for Wheezing or Shortness of Breath. albuterol 3-0 Yes [id number] 2.5mg Inhale 3 [facility] 2.5 mg /3 5-01 mL every 4 ity of mL (0.083 00:00: (four) [place] %) 00 hours. May Medical nebulizer also Branch solution nebulize one extra every 6 hours. benzonatate 2022-0 Yes [id number] 200mg Take 1 [facility] 200 mg 5-01 capsule by it[facility] of capsule 00:00: mouth 3 (three) Medical times Branch daily as needed for Cough. albuterol 2022-0 Yes [id number] 2{puff} Inhale 2 [facility] 90 5-01 Puffs ity of mcg/actuati 00:00: every 4 [place] on inhaler 00 (four) Medical hours as Branch needed for Wheezing or Shortness of Breath. albuterol 2022-0 Yes [id number] 2.5mg Inhale 3 [facility] 2.5 mg /3 5-01 mL every 4 ity of mL (0.083 00:00: (four) [place] %) 00 hours. May Medical nebulizer also Branch solution nebulize one extra every 6 hours. benzonatate 2022-0 Yes [id number] 200mg Take 1 [facility] 200 mg 5-01 capsule by ity of capsule 00:00: mouth 3 (three) Medical times Branch daily as needed for Cough. albuterol 2022-0 Yes [id number] 2{puff} Inhale 2 [facility] 90 5-01 Puffs ity of mcg/actuati 00:00: every 4 [place] on inhaler 00 (four) Medical hours as Branch needed for Wheezing or Shortness of Breath. albuterol 2022-0 Yes [id number] 2.5mg Inhale 3 [facility] 2.5 mg /3 5-01 mL every 4 ity of mL (0.083 00:00: (four) [place] %) 00 hours. May Medical nebulizer also Branch solution nebulize one extra every 6 hours. benzonatate 2022-0 Yes [id number] 200mg Take 1 [facility] 200 mg 5-01 capsule by ity of capsule 00:00: mouth 3 (three) Medical times Branch daily as needed for Cough. albuterol 2022-0 Yes [id number] 2{puff} Inhale 2 [facility] 90 5-01 Puffs ity of mcg/actuati 00:00: every 4 [place] on inhaler 00 (four) Medical hours as Branch needed for Wheezing or Shortness of Breath. albuterol 2022-0 Yes [id number] 2.5mg Inhale 3 [facility] 2.5 mg /3 5-01 mL every 4 ity of mL (0.083 00:00: (four) [place] %) 00 hours. May Medical nebulizer also Branch solution nebulize one extra every 6 hours. benzonatate 2023-0 Yes [id number] 200mg Take 1 [facility] 200 mg 5-01 capsule by ity of capsule 00:00: mouth 3 (three) Medical times Branch daily as needed for Cough. albuterol 2022-0 Yes [id number] 2{puff} Inhale 2 [facility] 90 5-01 Puffs ity of mcg/actuati 00:00: every 4 [place] on inhaler 00 (four) Medical hours as Branch needed for Wheezing or Shortness of Breath. albuterol 3-0 Yes [id number] 2.5mg Inhale 3 [facility] 2.5 mg /3 5-01 mL every 4 ity of mL (0.083 00:00: (four) [place] %) 00 hours. May Medical nebulizer also Branch solution nebulize one extra every 6 hours. benzonatate 3-0 Yes [id number] 200mg Take 1 [facility] 200 mg 5-01 capsule by ity of capsule 00:00: mouth 3 (three) Medical times Branch daily as needed for Cough. albuterol 2023-0 Yes [id number] 2.5mg Inhale 3 [facility] 2.5 mg /3 5-01 mL every 4 ity of mL (0.083 00:00: (four) [place] %) 00 hours. May Medical nebulizer also Branch solution nebulize one extra every 6 hours. benzonatate 3-0 Yes [id number] 200mg Take 1 [facility] 200 mg 5-01 capsule by ity of capsule 00:00: mouth 3 (three) Medical times Branch daily as needed for Cough. albuterol 2023-0 Yes [id number] 2.5mg Inhale 3 [facility] 2.5 mg /3 5-01 mL every 4 ity of mL (0.083 00:00: (four) [place] %) 00 hours. May Medical nebulizer also Branch solution nebulize one extra every 6 hours. benzonatate 2023-0 Yes [id number] 200mg Take 1 [facility] 200 mg 5-01 capsule by ity of capsule 00:00: mouth 3 (three) Medical times Branch daily as needed for Cough. albuterol 3-0 Yes [id number] 2.5mg Inhale 3 [facility] 2.5 mg /3 5-01 mL every 4 ity of mL (0.083 00:00: (four) [place] %) 00 hours. May Medical nebulizer also Branch solution nebulize one extra every 6 hours. benzonatate 3-0 Yes [id number] 200mg Take 1 [facility] 200 mg 5-01 capsule by ity of capsule 00:00: mouth 3 (three) Medical times Branch daily as needed for Cough. albuterol 2022-0 Yes [id number] 2.5mg Inhale 3 [facility] 2.5 mg /3 5-01 mL every 4 ity of mL (0.083 00:00: (four) [place] %) 00 hours. May Medical nebulizer also Branch solution nebulize one extra every 6 hours. albuterol 2022-0 Yes [id number] 2.5mg Inhale 3 [facility] 2.5 mg /3 5-01 mL every 4 ity of mL (0.083 00:00: (four) [place] %) 00 hours. May Medical nebulizer also Branch solution nebulize one extra every 6 hours. albuterol 3-0 Yes [id number] 2.5mg Inhale 3 [facility] 2.5 mg /3 5-01 mL every 4 ity of mL (0.083 00:00: (four) [place] %) 00 hours. May Medical nebulizer also Branch solution nebulize one extra every 6 hours. albuterol 3-0 Yes [id number] 2.5mg Inhale 3 [facility] 2.5 mg /3 5-01 mL every 4 ity of mL (0.083 00:00: (four) [place] %) 00 hours. May Medical nebulizer also Branch solution nebulize one extra every 6 hours. albuterol 3-0 Yes [id number] 2.5mg Inhale 3 [facility] 2.5 mg /3 5-01 mL every 4 ity of mL (0.083 00:00: (four) [place] %) 00 hours. May Medical nebulizer also Branch solution nebulize one extra every 6 hours. albuterol 3-0 Yes [id number] 2.5mg Inhale 3 [facility] 2.5 mg /3 5-01 mL every 4 ity of mL (0.083 00:00: (four) [place] %) 00 hours. May Medical nebulizer also Branch solution nebulize one extra every 6 hours. albuterol 2022- No [id number] 2.5mg Inhale 3 [facility] 2.5 mg /3 5-01 06-15 mL every 4 ity of mL (0.083 00:00: 00:00 (four) [place] %) 00 :00 hours. May Medical nebulizer also Branch solution nebulize one extra every 6 hours. benzonatate 2022- No [id number] 200mg Take 1 [facility] 200 mg 01-17- capsule by ity of capsule 00:00: 00:00 mouth 3 [place] 00 :00 (three) Medical times Branch daily as needed for Cough. albuterol 2022- No [id number] 2{puff} Inhale 2 [facility] 90 - 05-19 Puffs ity of mcg/actuati 00:00: 00:00 every 4 [place] on inhaler 00 :00 (four) Medical hours as Branch needed for Wheezing or Shortness of Breath. predniSONE 2022-2022- No [id number] 50mg Take 1 [facility] 50 mg 01-17 05-03 tablet by ity of tablet 00:00: 00:00 mouth in [place] 00 :00 the Medical morning. Branch ipratropium 2022- No [id number] .5mg Inhale 2.5 [facility] 0.02 % 01-17 [...] by ity of tablet 14:36: mouth in [place] [address] the Medical morning. Branch ASPIRIN 2023-0 Yes 81mg Take 81 mg [facility] ers ORAL 4-21 by mouth ity of 14:36: in the [place] [address] morning. Medical tablet Branch benazepriL 2023-0 Yes 10mg Take 1 [facility] rs 10 mg 4-21 tablet by ity of tablet 14:36: mouth in [place] [address] the Medical morning. Branch busPIRone 2023-0 Yes 10mg Take 1 [facility] 10 mg 4-21 tablet by ity of tablet 14:36: mouth in [place] [address] the Medical morning Branch and 1 tablet in the evening. rivaroxaban 2023-0 Yes 15mg Take 1 [facility] ers 15 mg 4-21 tablet by ity of tablet 14:36: mouth in [place] [address] the Medical morning. Branch ASPIRIN 2023-0 Yes 81mg Take 81 mg [facility] ers ORAL 4-21 by mouth ity of 14:36: in the [place] [address] morning. Medical tablet Branch benazepriL 2023-0 Yes 10mg Take 1 [facility] rs 10 mg 4-21 tablet by ity of tablet 14:36: mouth in [place] [address] the Medical morning. Branch busPIRone 2023-0 Yes 10mg Take 1 [facility] 10 mg 4-21 tablet by ity of tablet 14:36: mouth in [place] [address] the Medical morning Branch and 1 tablet in the evening. rivaroxaban 2023-0 Yes 15mg Take 1 [facility] ers 15 mg 4-21 tablet by ity of tablet 14:36: mouth in [place] [address] the Medical morning. Branch ASPIRIN 2023-0 Yes 81mg Take 81 mg [facility] ers ORAL 4-21 by mouth ity of 14:36: in the [place] [address] morning. Medical tablet Branch benazepriL 2023-0 Yes 10mg Take 1 [facility] rs 10 mg 4-21 tablet by ity of tablet 14:36: mouth in [place] [address] the Medical morning. Branch busPIRone 2023-0 Yes 10mg Take 1 [facility] 10 mg 4-21 tablet by ity of tablet 14:36: mouth in [place] [address] the Medical morning Branch and 1 tablet in the evening. rivaroxaban 2023-0 Yes 15mg Take 1 [facility] ers 15 mg 4-21 tablet by ity of tablet 14:36: mouth in [place] [address] the Medical morning. Branch ASPIRIN 2023-0 Yes 81mg Take 81 mg [facility] ers ORAL 4-21 by mouth ity of 14:36: in the [place] [address] morning. Medical tablet Branch benazepriL 2023-0 Yes 10mg Take 1 [facility] rs 10 mg 4-21 tablet by ity of tablet 14:36: mouth in [place] [address] the Medical morning. Branch donepeziL 5 2023-0 Yes 5mg Take 1 [facility] ers mg tablet 4-21 tablet by ity o f 00:00: mouth in [place] 00 the Medical morning. Branch memantine 5 2023-0 Yes 5mg Take 1 [facility] ers mg tablet 4-21 tablet by ity o f 00:00: mouth in [place] 00 the Medical morning. Branch donepeziL 5 2023-0 Yes 5mg Take 1 [facility] ers mg tablet 4-21 tablet by ity o f 00:00: mouth in [place] 00 the Medical morning. Branch memantine 5 2023-0 Yes 5mg Take 1 [facility] ers mg tablet 4-21 tablet by ity o f 00:00: mouth in [place] 00 the Medical morning. Branch donepeziL 5 2023-0 Yes 5mg Take 1 [facility] ers mg tablet 4-21 tablet by ity o f 00:00: mouth in [place] 00 the Medical morning. Branch memantine 5 2023-0 Yes 5mg Take 1 [facility] ers mg tablet 4-21 tablet by ity o f 00:00: mouth in [place] 00 the Medical morning. Branch donepeziL 5 2023-0 Yes 5mg Take 1 [facility] ers mg tablet 4-21 tablet by ity o f 00:00: mouth in [place] 00 the Medical morning. Branch memantine 5 2023-0 Yes 5mg Take 1 [facility] ers mg tablet 4-21 tablet by ity o f 00:00: mouth in [place] 00 the Medical morning. Branch donepeziL 5 2023-0 Yes 5mg Take 1 [facility] ers mg tablet 4-21 tablet by ity o f 00:00: mouth in [place] 00 the Medical morning. Branch memantine 5 2023-0 Yes 5mg Take 1 [facility] ers mg tablet 4-21 tablet by ity o f 00:00: mouth in [place] 00 the Medical morning. Branch donepeziL 5 2023-0 Yes 5mg Take 1 [facility] ers mg tablet 4-21 tablet by ity o f 00:00: mouth in [place] the Medical morning. Branch memantine 5 2023-0 Yes 5mg Take 1 [facility] ers mg tablet 4-21 tablet by ity o f 00:00: mouth in [place] the Medical morning. Branch donepeziL 5 2023-0 Yes 5mg Take 1 [facility] ers mg tablet 4-21 tablet by ity o f 00:00: mouth in [place] the Medical morning. Branch memantine 5 3-0 Yes 5mg Take 1 [facility] ers mg tablet 4-21 tablet by ity o f 00:00: mouth in [place] the Medical morning. Branch donepeziL 5 2023-0 Yes 5mg Take 1 [facility] ers mg tablet 4-21 tablet by ity o f 00:00: mouth in [place] the Medical morning. Branch memantine 5 2023-0 Yes 5mg Take 1 [facility] ers mg tablet 4-21 tablet by ity o f 00:00: mouth in [place] the Medical morning. Branch donepeziL 5 2023-0 Yes 5mg Take 1 [facility] ers mg tablet 4-21 tablet by ity o f 00:00: mouth in [place] 00 the Medical morning. Branch memantine 5 2023-0 Yes 5mg Take 1 [facility] ers mg tablet 4-21 tablet by ity o f 00:00: mouth in [place] 00 the Medical morning. Branch donepeziL 5 2023-0 Yes 5mg Take 1 [facility] ers mg tablet 4-21 tablet by ity o f 00:00: mouth in [place] 00 the Medical morning. Branch memantine 5 2023-0 Yes 5mg Take 1 [facility] ers mg tablet 4-21 tablet by ity o f 00:00: mouth in [place] 00 the Medical morning. Branch donepeziL 5 2023-0 Yes 5mg Take 1 [facility] ers mg tablet 4-21 tablet by ity o f 00:00: mouth in [place] 00 the Medical morning. Branch memantine 5 2023-0 Yes 5mg Take 1 [facility] ers mg tablet 4-21 tablet by ity o f 00:00: mouth in [place] 00 the Medical morning. Branch donepeziL 5 2023-0 Yes 5mg Take 1 [facility] ers mg tablet 4-21 tablet by ity o f 00:00: mouth in [place] 00 the Medical morning. Branch memantine 5 2023-0 Yes 5mg Take 1 [facility] ers mg tablet 4-21 tablet by ity o f 00:00: mouth in [place] 00 the Medical morning. Branch donepeziL 5 2023-0 Yes 5mg Take 1 [facility] ers mg tablet 4-21 tablet by ity o f 00:00: mouth in [place] 00 the Medical morning. Branch memantine 5 2023-0 Yes 5mg Take 1 [facility] ers mg tablet 4-21 tablet by ity o f 00:00: mouth in [place] 00 the Medical morning. Branch donepeziL 5 2023-0 Yes 5mg Take 1 [facility] ers mg tablet 4-21 tablet by ity o f 00:00: mouth in [place] the Medical morning. Branch memantine 5 2023-0 Yes 5mg Take 1 [facility] ers mg tablet 4-21 tablet by ity o f 00:00: mouth in [place] 00 the Medical morning. Branch donepeziL 5 2023-0 Yes 5mg Take 1 [facility] ers mg tablet 4-21 tablet by ity o f 00:00: mouth in [place] 00 the Medical morning. Branch memantine 5 2023-0 Yes 5mg Take 1 [facility] ers mg tablet 4-21 tablet by ity o f 00:00: mouth in [place] 00 the Medical morning. Branch donepeziL 5 2023-0 Yes 5mg Take 1 [facility] ers mg tablet 4-21 tablet by ity o f 00:00: mouth in [place] 00 the Medical morning. Branch memantine 5 2023-0 Yes 5mg Take 1 [facility] ers mg tablet 4-21 tablet by ity o f 00:00: mouth in [place] 00 the Medical morning. Branch donepeziL 5 2023-0 Yes 5mg Take 1 [facility] ers mg tablet 4-21 tablet by ity o f 00:00: mouth in [place] 00 the Medical morning. Branch memantine 5 2023-0 Yes 5mg Take 1 [facility] ers mg tablet 4-21 tablet by ity o f 00:00: mouth in [place] the Medical morning. Branch donepeziL 5 2023-0 Yes 5mg Take 1 [facility] ers mg tablet 4-21 tablet by ity o f 00:00: mouth in [place] the Medical morning. Branch memantine 5 2023-0 Yes 5mg Take 1 [facility] ers mg tablet 4-21 tablet by ity o f 00:00: mouth in [place] 00 the Medical morning. Branch donepeziL 5 2023-0 Yes 5mg Take 1 [facility] ers mg tablet 4-21 tablet by ity o f 00:00: mouth in [place] the Medical morning. Branch memantine 5 2023-0 Yes 5mg Take 1 [facility] ers mg tablet 4-21 tablet by ity o f 00:00: mouth in [place] the Medical morning. Branch donepeziL 5 2023-0 Yes 5mg Take 1 [facility] ers mg tablet 4-21 tablet by ity o f 00:00: mouth in [place] the Medical morning. Branch memantine 5 2023-0 Yes 5mg Take 1 [facility] ers mg tablet 4-21 tablet by ity o f 00:00: mouth in [place] the Medical morning. Branch donepeziL 5 2023-0 Yes 5mg Take 1 [facility] ers mg tablet 4-21 tablet by ity o f 00:00: mouth in [place] the Medical morning. Branch memantine 5 2023-0 Yes 5mg Take 1 [facility] ers mg tablet 4-21 tablet by ity o f 00:00: mouth in [place] the Medical morning. Branch donepeziL 5 2023-0 Yes 5mg Take 1 [facility] ers mg tablet 4-21 tablet by ity o f 00:00: mouth in [place] the Medical morning. Branch memantine 5 2023-0 Yes 5mg Take 1 [facility] ers mg tablet 4-21 tablet by ity o f 00:00: mouth in [place] the Medical morning. Branch donepeziL 5 2023-0 Yes 5mg Take 1 [facility] ers mg tablet 4-21 tablet by ity o f 00:00: mouth in [place] 00 the Medical morning. Branch memantine 5 2023-0 Yes 5mg Take 1 [facility] ers mg tablet 4-21 tablet by ity o f 00:00: mouth in [place] 00 the Medical morning. Branch donepeziL 5 2023-0 Yes 5mg Take 1 [facility] ers mg tablet 4-21 tablet by ity o f 00:00: mouth in [place] 00 the Medical morning. Branch memantine 5 2023-0 Yes 5mg Take 1 [facility] ers mg tablet 4-21 tablet by ity o f 00:00: mouth in [place] 00 the Medical morning. Branch donepeziL 5 2023-0 Yes 5mg Take 1 [facility] ers mg tablet 4-21 tablet by ity o f 00:00: mouth in [place] 00 the Medical morning. Branch memantine 5 2023-0 Yes 5mg Take 1 [facility] ers mg tablet 4-21 tablet by ity o f 00:00: mouth in [place] 00 the Medical morning. Branch donepeziL 5 2023-0 Yes 5mg Take 1 [facility] ers mg tablet 4-21 tablet by ity o f 00:00: mouth in [place] 00 the Medical morning. Branch memantine 5 2023-0 Yes 5mg Take 1 [facility] ers mg tablet 4-21 tablet by ity o f 00:00: mouth in [place] 00 the Medical morning. Branch donepeziL 5 2023-0 Yes 5mg Take 1 [facility] ers mg tablet 4-21 tablet by ity o f 00:00: mouth in [place] 00 the Medical morning. Branch memantine 5 2023-0 Yes 5mg Take 1 [facility] ers mg tablet 4-21 tablet by ity o f 00:00: mouth in [place] 00 the Medical morning. Branch donepeziL 5 2023-0 2023- No 5mg Take 1 [facility] vers mg tablet 01-07- tablet by ity of 00:00: 00:00 mouth in [place] 00 :00 the Medical morning. Branch memantine 5 2023-0 2023- No 5mg Take 1 [facility] vers mg tablet 01-07- tablet by ity of 00:00: 00:00 mouth in [place] 00 :00 the Medical morning. Branch donepeziL 5 2023-0 2023- No 5mg Take 1 [facility] vers mg tablet -09 03- tablet by ity of 00:00: 00:00 mouth in [place] 00 :00 the Medical morning. Branch memantine 5 2023-0 2023- No 5mg Take 1 [facility] vers mg tablet 4-21 06-13 tablet by ity of 00:00: 00:00 mouth in [place] 00 :00 the Medical morning. Branch tamsulosin 2023-0 2023- No [id number] .4mg Take 1 [facility] 0.4 mg 24 3-13 01- capsule by ity of hr capsule 00:00: 04:59 mouth in [place] 00 :00 the Medical morning Branch for 30 days. tamsulosin 2023-0 2023- No [id number] .4mg Take 1 [facility] 0.4 mg 24 -13 01- capsule by ity of hr capsule 00:00: 04:59 mouth in [place] 00 :00 the Medical morning Branch for 30 days. tamsulosin 2023-0 2023- No [id number] .4mg Take 1 [facility] 0.4 mg 24 -13 01- capsule by ity of hr capsule 00:00: 04:59 mouth in [place] 00 :00 the Medical morning Branch for 30 days. tamsulosin 2023-0 2023- No [id number] .4mg Take 1 [facility] 0.4 mg 24 -13 01- capsule by ity of hr capsule 00:00: 04:59 mouth in [place] 00 :00 the Medical morning Branch for 30 days. tamsulosin 2023-0 2023- No [id number] .4mg Take 1 [facility] 0.4 mg 24 -13 01- capsule by ity of hr capsule 00:00: 04:59 mouth in [place] 00 :00 the Medical morning Branch for 30 days. tamsulosin 3-0 3- No [id number] .4mg Take 1 [facility] 0.4 mg 24 12-13- capsule by ity of hr capsule 00:00: 04:59 mouth in [place] 00 :00 the Medical morning Branch for 30 days. donepeziL 3-0 Yes 5mg 5 mg, [facility] (ARICEPT) 3-26 Oral, it[facility] of tablet 5 mg 17:30: [place] [facility] at 1230, Until Discontinu ed, Routine memantine 3-0 Yes 5mg 5 mg, [facility] (NAMENDA) 3-26 Oral, it[facility] of tablet 5 mg 17:30: [place], [place] [facility] 12[facility]/22 at 1230, Until Discontinu ed, Routine
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 Medical tablet Branch busPIRone 2023-0 Yes 10mg Take 1 [facility] s 10 mg 3-26 tablet by ity of tablet 14:37: mouth in [place] [address] the Medical morning Branch and 1 tablet in the evening. rivaroxaban 2023-0 Yes 15mg Take 1 [facility] ers (XARELTO) 3-26 tablet by ity o f 15 mg 14:37: mouth in [place] tablet 13 the Medical morning. Branch busPIRone 2023-0 Yes 10mg Take 1 [facility] s 10 mg 3-26 tablet by ity of tablet 14:37: mouth in [place] [address] the Medical morning Branch and 1 tablet in the evening. rivaroxaban 2023-0 Yes 15mg Take 1 [facility] ers (XARELTO) 3-26 tablet by ity o f 15 mg 14:37: mouth in [place] tablet 13 the Medical morning. Branch aspirin 81 3-0 Yes 81mg Take 81 mg [facility] n[facility] mg chewable 3-26 by mouth ity of tablet 14:37: in the [place] [address] morning. Medical tablet Branch busPIRone 2023-0 Yes 10mg Take 1 [facility] s 10 mg 3-26 tablet by ity of tablet 14:37: mouth in [place] [address] the Medical morning Branch and 1 tablet in the evening. rivaroxaban 2023-0 Yes 15mg Take 1 [facility] ers (XARELTO) 3-26 tablet by ity o f 15 mg 14:37: mouth in [place] tablet 13 the Medical morning. Branch aspirin 81 3-0 Yes 81mg Take 81 mg U nivers mg chewable 3-26 by mouth ity of tablet 14:37: in the [place] 13 morning. Medical tablet Branch tamsulosin Yes .4mg 0.4 mg, Univ ers (FLOMAX) 12-12 Oral, ity of capsule 0.4 14:00: DAILY, [facility] s mg 00 First dose Medical on [place] [facility] 12/12/22 at 0900, Until Discontinu ed, Routine aspirin EC Yes 81mg 81 mg, Unive rs tablet 81 12-12 Oral, ity of mg 14:00: DAILY, [place] 00 First dose Medical on [place] [facility] 12/12/22 at 0900, Until Discontinu ed, Routine methylpredn Yes 40mg 40 mg, Univ ers isolone sod 12-12 Intravenou it y of succ 14:00: s, DAILY, [place] (SOLU-MEDRO 00 First dose Me dical L) (after Branch injection last 40 mg modificati on) on [place] 12/12/22 at 0900, Until Discontinu ed, Routine carvediloL 2022- No 25mg Take 1 Univ ers 25 mg 12-12 tablet by ity of tablet 11:47: 00:00 mouth in [place] 13 :00 the Medical morning Branch and 1 tablet in the evening. Take with meals. busPIRone 2022-0 2022- No 30mg Take 1 Unive rs 30 mg 12-12 tablet by ity of tablet 11:47: 00:00 mouth in [place] 13 :00 the Medical morning Branch and 1 tablet in the evening. KCL 20 mEq 2022-2022- No Take by Uni vers tablet 12-12 mouth 2 ity of 11:47: 00:00 (two) [place] 13 :00 times Medical daily. Branch benazepriL 2022- No 10mg Take 1 Univ ers 10 mg 12-12 tablet by ity of tablet 11:47: 00:00 mouth in [place] 13 :00 the Medical morning. Branch hydroCHLORO 2022-0 2022- No 25mg Take 1 Uni vers thiazide 25 12-12 tablet by it y of mg tablet 11:47: 00:[address] [facility] as 13 :00 the Medical morning. Branch melatonin 0 Yes 6mg 6 mg, Univers (MELATIN) 12-12 Oral, QHS, ity of tablet 6 mg 02:00: First dose [place] 00 on [facility] Medical 12/11/22 at Branch 2100, Until Discontinu ed, Routine atorvastati Yes 40mg 40 mg, Univ ers n (LIPITOR) 3-26 Oral, QHS, it y of tablet 40 02:00: First dose [place] mg 00 on [facility] Medical 12/11/22 at Branch 2100, Until Discontinu ed, Routine carvediloL 2022- No [id number] 3.125mg Take 1 Univers 3.125 mg -12 01- tablet by ity o f tablet 00:00: 04:59 mouth in [place] 00 :00 the [facility] morning [place] and 1 tablet in the evening. Take with meals. Do all this for 30 days. atorvastati 2022- No [id number] 40mg Take 1 Univers n 40 mg -12 01- tablet by ity of tablet 00:00: 04:59 mouth at [place] 00 :00 bedtime Medical for 30 Branch days. donepeziL 5 2022- No [id number] 5mg Take 1 Univers mg tablet 12-12- tablet by ity of 00:00: 04:59 mouth in [place] 00 :00 the [facility] for 30 days. memantine 5 2022- No [id number] 5mg Take 1 Univers mg tablet 12-12- tablet by ity of 00:00: 04:59 mouth in [place] 00 :00 [facility] for 30 days. carvediloL 2022- No [id number] 3.125mg Take 1 Univers 3.125 mg 12-12- tablet by ity o f tablet 00:00: 04:59 mouth in [place] 00 :00 [facility] and 1 tablet in the evening. Take with meals. Do all this for 30 days. atorvastati 2022- No [id number] 40mg Take 1 Univers n 40 mg -12 01- tablet by ity of tablet 00:00: 04:59 mouth at [place] 00 :00 [facility] Medical for 30 Branch days. donepeziL 5 2022- No [id number] 5mg Take 1 Univers mg tablet 12-12- tablet by ity of 00:00: 04:59 mouth in [place] 00 :00 [facility] for 30 days. memantine 5 2022- No [id number] 5mg Take 1 Univers mg tablet -12 01- tablet by ity of 00:00: 04:59 mouth in [place] 00 :00 the [facility] for 30 days. carvediloL 2022- No [id number] 3.125mg Take 1 Univers 3.125 mg 3-12 01- tablet by ity o f tablet 00:00: 04:59 mouth in [place] 00 :00 the [facility] and 1 tablet in the evening. Take with meals. Do all this for 30 days. atorvastati 2022- No [id number] 40mg Take 1 Univers n 40 mg 3-12 01- tablet by ity of tablet 00:00: 04:59 mouth [facility] [place] [facility] donepeziL 5 2022- No [id number] 5mg Take 1 Univers mg tablet 12-12- tablet by ity of 00:00: 04:59 mouth in [place] 00 :00 [facility] for 30 days. memantine 5 2022- No [id number] 5mg Take 1 Univers mg tablet -12 01- tablet by ity of 00:: 04:59 mouth in [place] 00 :00 [facility] for 30 days. carvediloL 2022- No [id number] 3.125mg Take 1 Univers 3.125 mg -12 01- tablet by ity o f tablet 00:: 04:59 mouth in [place] 00 :00 the [facility] and 1 tablet in the evening. Take with meals. Do all this for 30 days. atorvastati 2022- No [id number] 40mg Take 1 Univers n 40 mg 3-12 01- tablet by ity of tablet 00:: 04:59 mouth at [place] [facility] Branch [facility] carvediloL 2022- No [id number] 3.125mg Take 1 Univers 3.125 mg 3-12 01-26 tablet by ity o f tablet 00:00: 04:59 mouth in [place] 00 :00 [facility] and 1 tablet in the evening. Take with meals. Do all this for 30 days. atorvastati 2022- No [id number] 40mg Take 1 Univers n 40 mg 12-12- tablet by ity of tablet 00:00: 04:59 mouth at [place] 00 :00 [facility] for 30 Branch days. carvediloL 2022- No [id number] 3.125mg Take 1 Univers 3.125 mg 12-12- tablet by ity o f tablet 00:00: 04:59 mouth in [place] 00 :00 the [facility] and 1 tablet in the evening. Take with meals. Do all this for 30 days. atorvastati 2022- No [id number] 40mg Take 1 Univers n 40 mg 12-12- tablet by ity of tablet 00:00: 04:59 mouth at [place] 00 :00 [facility] for 30 Branch days. donepeziL 5 2022-2022- No [id number] 5mg Take 1 Univers mg tablet 12-12- tablet by ity of 00:00: 00:00 mouth in [place] 00 :00 [facility] for 30 days. memantine 5 2022-2022- No [id number] 5mg Take 1 Univers mg tablet 12-12- tablet by ity of 00:00: 00:00 mouth in [place] 00 :00 [facility] for 30 days. donepeziL 5 2022- No [id number] 5mg Take 1 Univers mg tablet 12-12- tablet by ity of 00:00: 00:00 mouth in [place] 00 :00 [facility] for 30 days. memantine 5 2022- No [id number] 5mg Take 1 Univers mg tablet 12-12- tablet by ity of 00:00: 00:00 mouth in [place] 00 :00 [facility] for 30 days. levalbutero Yes 1.25mg 1.25 [...] [place] mg 00 First dose Medical on [facility] Branch 12/11/22 at 0900, Until Discontinu ed, Routine nicotine 0 Yes 1{patch 1 Patch, Un igor (NICODERM) 12-11 } Topical, ity o f 21 mg/24 hr 13:45: Administer [place] patch 1 00 over 24 Medical Patch Hours, Branch Q24H, First dose on [facility] 12/11/22 at 0845, Until Discontinu ed, Routine ipratropium 0 Yes .5mg 0.5 mg, Uni vers (ATROVENT) 25 Inhalation ity of 0.02 % 13:00: , QID, [place] nebulizer 00 First dose Medi lucho solution on [facility] Branch 0.5 mg 12/11/22 at 0800, Until Discontinu ed carvediloL 2022-0 Yes 3.125mg 3.125 mg, Univers (COREG) 25 Oral, BID ity of tablet 13:00: MEALS, [place] 3.125 mg 00 First dose Medic al on [facility] Branch 12/11/22 at 0800, Until Discontinu ed, Routine busPIRone 0 Yes 10mg 10 mg, Univer s (BUSPAR) 3-25 Oral, BID, ity o f tablet 10 13:00: First dose [place] mg 00 on [facility] Medical 12/11/22 at Branch 0800, Until Discontinu ed, Routine methylpredn 0 2022- No 125mg 125 mg, U nivers isolone sod 12-11-25 Intravenou i ty of succ 05:00: 12:35 s, Q6H, [place] (SOLU-MEDRO 00 :32 First dose Me dical L) on [facility] Branch injection 12/11/22 at 125 mg 0000, [...] ity of 0.02 % 23:48: , Q4HPRN, [place] nebulizer 58 Starting Medica l solution on [...] by ity of tablet 12:44: mouth in [place] [address] the Medical morning Branch and 1 tablet in the evening. Take with meals. busPIRone 2023-0 Yes 10mg Take 1 Univer s 10 mg 3-18 tablet by ity of tablet 12:44: mouth in [place] [address] the Medical morning Branch and 1 tablet in the evening. busPIRone 2023-0 Yes 30mg Take 1 Univer s 30 mg 3-18 tablet by ity of tablet 12:44: mouth in [place] [address] the Medical morning Branch and 1 tablet in the evening. KCL 20 mEq 2022-0 Yes Take by Univ ers tablet 3-18 mouth 2 ity of 12:44: (two) [place] [address] times Medical daily. Branch benazepriL 2023-0 Yes 10mg Take 1 Unive rs 10 mg 3-18 tablet by ity of tablet 12:44: mouth in [place] 03 the Medical morning. Branch rivaroxaban 3-0 Yes 15mg Take 1 Univ ers (XARELTO) 3-18 tablet by ity o f 15 mg 12:44: mouth in [facility] 03 the Medical morning. Branch carvediloL 2023-0 Yes 3.125mg Take 1 Un igor 3.125 mg 3-18 tablet by ity of tablet 12:44: mouth in [place] [address] the Medical morning Branch and 1 tablet in the evening. Take with meals. busPIRone 2023-0 Yes 10mg Take 1 Univer s 10 mg 3-18 tablet by ity of tablet 12:44: mouth in [place] [address] the Medical morning Branch and 1 tablet in the evening. busPIRone 2023-0 Yes 30mg Take 1 Univer s 30 mg 3-18 tablet by ity of tablet 12:44: mouth in [place] [address] the Medical morning Branch and 1 tablet in the evening. KCL 20 mEq 2023-0 Yes Take by Univ ers tablet 3-18 mouth 2 ity of 12:44: (two) [place] [address] times Medical daily. Branch benazepriL 2023-0 Yes 10mg Take 1 Unive rs 10 mg 3-18 tablet by ity of tablet 12:44: mouth in [place] [address] the Medical morning. Branch rivaroxaban 2023-0 Yes 15mg Take 1 Univ ers (XARELTO) 3-18 tablet by ity o f 15 mg 12:44: mouth in [facility] 03 the Medical morning. Branch carvediloL 2023-0 Yes 3.125mg Take 1 Un igor 3.125 mg 3-18 tablet by ity of tablet 12:44: mouth in [place] [address] the Medical morning Branch and 1 tablet in the evening. Take with meals. busPIRone 2023-0 Yes 10mg Take 1 Univer s 10 mg 3-18 tablet by ity of tablet 12:44: mouth in [place] [address] the Medical morning Branch and 1 tablet in the evening. busPIRone 2023-0 Yes 30mg Take 1 Univer s 30 mg 3-18 tablet by ity of tablet 12:44: mouth in [place] [address] the Medical morning Branch and 1 tablet in the evening. KCL 20 mEq 2023-0 Yes Take by Univ ers tablet 3-18 mouth 2 ity of 12:44: (two) [place] [address] times Medical daily. Branch benazepriL 2023-0 Yes 10mg Take 1 Unive rs 10 mg 3-18 tablet by ity of tablet 12:44: mouth in [place] 03 the Medical morning. Branch rivaroxaban 2023-0 Yes 15mg Take 1 Univ ers (XARELTO) 3-18 tablet by ity o f 15 mg 12:44: mouth in [place] tablet 03 the Medical morning. Branch carvediloL 2022-0 Yes 3.125mg Take 1 Un igor 3.125 mg 3-18 tablet by ity of tablet 12:44: mouth in [place] 03 the Medical morning Branch and 1 tablet in the evening. Take with meals. busPIRone 3-0 Yes 10mg Take 1 Univer s 10 mg 3-18 tablet by ity of tablet 12:44: mouth in [place] 03 the Medical morning Branch and 1 tablet in the evening. busPIRone 202-0 Yes 30mg Take 1 Univer s 30 mg 3-18 tablet by ity of tablet 12:44: mouth in [place] 03 the Medical morning Branch and 1 tablet in the evening. KCL 20 mEq 2022-0 Yes Take by Univ ers tablet 3-18 mouth 2 ity of 12:44: (two) [place] 03 times Medical daily. Branch benazepriL 2022-0 Yes 10mg Take 1 Unive rs 10 mg 3-18 tablet by ity of tablet 12:44: mouth in [place] 03 the Medical morning. Branch rivaroxaban 2022-0 Yes 15mg Take 1 Univ ers (XARELTO) 3-18 tablet by ity o f 15 mg 12:44: mouth in [place] tablet 03 the Medical morning. Branch albuterol 2022-0 Yes [id number] 2{puff} Inhale 2 Univers 90 3-18 Puffs ity of mcg/actuati 00:00: every 6 [place] on inhaler 00 (six) Medical hours as Branch needed for Wheezing or Shortness of Breath. albuterol 2022-0 Yes [id number] 2{puff} Inhale 2 Univers 90 3-18 Puffs ity of mcg/actuati 00:00: every 6 [place] on inhaler 00 (six) Medical hours as Branch needed for Wheezing or Shortness of Breath. albuterol 2022-0 Yes [id number] 2{puff} Inhale 2 Univers 90 3-18 Puffs ity of mcg/actuati 00:00: every 6 [place] on inhaler 00 (six) Medical hours as Branch needed for Wheezing or Shortness of Breath. albuterol 2022-0 Yes [id number] 2{puff} Inhale 2 Univers 90 3-18 Puffs ity of mcg/actuati 00:00: every 6 [place] on inhaler 00 (six) Medical hours as Branch needed for Wheezing or Shortness of Breath. albuterol Yes [id number] 2{puff} Inhale 2 Univers 90 3-18 Puffs ity of mcg/actuati 00:00: every 6 [place] on inhaler 00 (six) Medical hours as Branch needed for Wheezing or Shortness of Breath. albuterol Yes [id number] 2{puff} Inhale 2 Univers 90 3-18 Puffs ity of mcg/actuati 00:00: every 6 [place] on inhaler 00 (six) Medical hours as Branch needed for Wheezing or Shortness of Breath. albuterol Yes [id number] 2{puff} Inhale 2 Univers 90 3-18 Puffs ity of mcg/actuati 00:00: every 6 [place] on inhaler 00 (six) Medical hours as Branch needed for Wheezing or Shortness of Breath. albuterol Yes [id number] 2{puff} Inhale 2 Univers 90 3-18 Puffs ity of mcg/actuati 00:00: every 6 [place] on inhaler 00 (six) Medical hours as Branch needed for Wheezing or Shortness of Breath. albuterol Yes [id number] 2{puff} Inhale 2 Univers 90 3-18 Puffs ity of mcg/actuati 00:00: every 6 [place] on inhaler 00 (six) Medical hours as Branch needed for Wheezing or Shortness of Breath. albuterol Yes [id number] 2{puff} Inhale 2 Univers 90 3-18 Puffs ity of mcg/actuati 00:00: every 6 [place] on inhaler 00 (six) Medical hours as Branch needed for Wheezing or Shortness of Breath. albuterol Yes [id number] 2{puff} Inhale 2 Univers 90 3-18 Puffs ity of mcg/actuati 00:00: every 6 [place] on inhaler 00 (six) Medical hours as Branch needed for Wheezing or Shortness of Breath. albuterol Yes [id number] 2{puff} Inhale 2 Univers 90 3-18 Puffs ity of mcg/actuati 00:00: every 6 [place] on inhaler 00 (six) Medical hours as Branch needed for Wheezing or Shortness of Breath. albuterol No [id number] 2{puff} Inhale 2 Univers 90 3-18 05-03 Puffs ity of mcg/actuati 00:00: 00:00 every 6 [place] on inhaler 00 :00 (six) Medical hours as Branch needed for Wheezing or Shortness of Breath. tiotropium No [id number] 18ug Inhale 1 Univers 18 mcg 3-18 04-18 capsule in ity of inhalation 00:00: 04:59 the [place] 00 :00 morning Medical for 30 Branch days. tiotropium No [id number] 18ug Inhale 1 Univers 18 mcg 3-18 04-18 capsule in ity of inhalation 00:00: 04:59 the [place] 00 :00 morning Medical for 30 Branch days. tiotropium No [id number] 18ug Inhale 1 Univers 18 mcg 3-18 04-18 capsule in ity of inhalation 00:00: 04:59 the [place] 00 :00 morning Medical for 30 Branch days. tiotropium 2022- No [id number] 18ug Inhale 1 Univers 18 mcg 3-18 04-18 capsule in ity of inhalation 00:00: 04:59 the [place] 00 :00 morning Medical for 30 Branch days. tiotropium 2022- No [id number] 18ug Inhale 1 Univers 18 mcg 3-18 04-18 capsule in ity of inhalation 00:00: 04:59 the [place] 00 :00 morning Medical for 30 Branch days. tiotropium 2022- No [id number] 18ug Inhale 1 Univers 18 mcg 3-18 04-18 capsule in ity of inhalation 00:00: 04:59 the [place] 00 :00 morning Medical for 30 Branch days. tiotropium No [id number] 18ug Inhale 1 Univers 18 mcg 3-18 04-18 capsule in ity of inhalation 00:00: 04:59 the [place] 00 :00 morning Medical for 30 Branch days. tiotropium 2022- No [id number] 18ug Inhale 1 Univers 18 mcg 3-18 04-18 capsule in ity of inhalation 00:00: 04:59 the [place] 00 :00 morning Medical for 30 Branch days. doxycycline 2022-2022- No [id number] 100mg Take 1 Univers hyclate 100 3-18 03-24 capsule by i ty of mg capsule 00:00: 04:59 mouth [place] 00 :00 every 12 Medical (twelve) Branch hours for 5 days. predniSONE 2022-0 2022- No [id number] 40mg Take 2 Univers 20 mg 3-18 03-24 tablets by ity of tablet 00:00: 04:59 mouth in [place] 00 :00 the Medical morning Branch for 5 days. doxycycline 2022-0 2022- No [id number] 100mg Take 1 Univers hyclate 100 3-18 03-24 capsule by i ty of mg capsule 00:00: 04:59 mouth [place] 00 :00 every 12 Medical (twelve) Branch hours for 5 days. predniSONE 2022-0 2022- No [id number] 40mg Take 2 Univers 20 mg 3-18 [...] mg 00 :59 First dose Medical on [facility] Branch 12/02/22 at 1700, Until Discontinu ed, Routine methylPREDN Yes 40mg 40 mg, Univ ers ISolone sod 3-16 Intravenou it y of succ 19:00: s, Q8H, [place] (SOLU-MEDRO 00 First dose Me dical L (PF)) on [facility] Branch injection 12/02/22 at 40 mg 1400, [...] it y of nebulizer 13:00: , Q4H, [place] solution 00 First dose Medic al 1.25 mg on [place] Branch 12/02/22 at 0800, Until Discontinu ed, Routine ipratropium 0 Yes .5mg 0.5 mg, Uni vers (ATROVENT) 12-02 Inhalation ity of 0.02 % 13:00: , Q4H, [place] nebulizer 00 First dose Medi lucho solution [...] IV Push, ity of (PF)) 11:30: Q6HPRN, [place] injection 4 03 Starting Medi lucho mg [...] 16 Oral, ity of (TYLENOL) 11:30: Q6HPRN, [place] tablet 650 03 Starting Medic al mg on [place] Branch 12/02/22 at 0630, Until Discontinu ed, Routine, Pain (scale 1-3) methylpredn 2022- No 125mg 125 mg, U nivers isolone sod 12-02 Intravenou i ty of succ 06:15: 05:27 s, ONCE, 1 [place] (SOLU-MEDRO 00 :00 dose, On Medi lucho [...] 0.02 % 12:30: 12:38 , ONCE, 1 [place] nebulizer 00 :00 dose, On Medica l [...] of succ 10:30: 10:35 s, ONCE, 1 [place] (SOLU-MEDRO 00 :00 dose, On Medi lucho L (PF)) Wed Branch injection 12/01/22 at 40 mg 0530, [place] Nebulizer & 0 Yes [id number] Use as Univers Compressor 3-15 directed ity o f For Neb 00:00: Medical Branch albuterol 2022-0 Yes [id number] 2{puff} Inhale 2 Univers 90 3-15 Puffs ity of mcg/actuati 00:00: every 4 [place] on inhaler 00 (four) Medical hours as Branch needed for Wheezing or Shortness of Breath. Nebulizer & 0 Yes [id number] Use as Univers Compressor 3-15 directed ity o f For Neb 00:00: Medical Branch albuterol 2022-0 Yes [id number] 2{puff} Inhale 2 Univers 90 3-15 Puffs ity of mcg/actuati 00:00: every 4 [place] on inhaler 00 (four) Medical hours as Branch needed for Wheezing or Shortness of Breath. Nebulizer & 2022-0 Yes [id number] Use as Univers Compressor 3-15 directed ity o f For Neb 00:00: Medical Branch albuterol 2022-0 Yes [id number] 2{puff} Inhale 2 Univers 90 3-15 Puffs ity of mcg/actuati 00:00: every 4 [place] on inhaler 00 (four) Medical hours as Branch needed for Wheezing or Shortness of Breath. Nebulizer & 2022-0 Yes [id number] Use as Univers Compressor 3-15 directed ity o f For Neb 00:00: Medical Branch Nebulizer & 2022-0 Yes [id number] Use as Univers Compressor 3-15 directed ity o f For Neb 00:00: Medical Branch Nebulizer & 2022-0 Yes [id number] Use as Univers Compressor 3-15 directed ity o f For Neb 00:00: Medical Branch Nebulizer & 2022-0 Yes [id number] Use as Univers Compressor 3-15 directed ity o f For Neb 00:00: Medical Branch Nebulizer & 2022-0 Yes [id number] Use as Univers Compressor 3-15 directed ity o f For Neb 00:00: Medical Branch Nebulizer & 2022-0 Yes [id number] Use as Univers Compressor 3-15 directed ity o f For Neb 00:00: Medical Branch Nebulizer & 2022-0 Yes [id number] Use as Univers Compressor 3-15 directed ity o f For Neb 00:00: Medical Branch Nebulizer & 2022-0 Yes [id number] Use as Univers Compressor 3-15 directed ity o f For Neb 00:00: Medical Branch Nebulizer & 2022-0 Yes [id number] Use as Univers Compressor 3-15 directed ity o f For Neb 00:00: Medical Branch Nebulizer & 2022-0 Yes [id number] Use as Univers Compressor 3-15 directed ity o f For Neb 00:00: Medical Branch Nebulizer & 2022-0 Yes [id number] Use as Univers Compressor 3-15 directed ity o f For Neb 00:00: Medical Branch Nebulizer & 2023-0 Yes [id number] Use as Univers Compressor 3-15 directed ity o f For Neb 00:00: Medical Branch Nebulizer & 2023-0 Yes [id number] Use as Univers Compressor 3-15 directed ity o f For Neb 00:00: Medical Branch Nebulizer & 2023-0 Yes [id number] Use as Univers Compressor 3-15 directed ity o f For Neb 00:00: Medical Branch Nebulizer & 3-0 Yes [id number] Use as Univers Compressor 3-15 directed ity o f For Neb 00:00: Medical Branch Nebulizer & 3-0 Yes [id number] Use as Univers Compressor 3-15 directed ity o f For Neb 00:00: Medical Branch Nebulizer & 3-0 Yes [id number] Use as Univers Compressor 3-15 directed ity o f For Neb 00:00: Medical Branch Nebulizer & 3-0 Yes [id number] Use as Univers Compressor 3-15 directed ity o f For Neb 00:00: Medical Branch Nebulizer & 3-0 Yes [id number] Use as Univers Compressor 3-15 directed ity o f For Neb 00:00: Medical Branch Nebulizer & 3-0 Yes [id number] Use as Univers Compressor 3-15 directed ity o f For Neb 00:00: Medical Branch Nebulizer & 2023-0 Yes [id number] Use as Univers Compressor 3-15 directed ity o f For Neb 00:00: Medical Branch Nebulizer & 3-0 Yes [id number] Use as Univers Compressor 3-15 directed ity o f For Neb 00:00: Medical Branch Nebulizer & 3-0 Yes [id number] Use as Univers Compressor 3-15 directed ity o f For Neb 00:00: Medical Branch Nebulizer & 3-0 Yes [id number] Use as Univers Compressor 3-15 directed ity o f For Neb 00:00: Medical Branch Nebulizer & 3-0 Yes [id number] Use as Univers Compressor 3-15 directed ity o f For Neb 00:00: [place] Kami 00 Medical Branch Nebulizer & 2022-0 Yes [id number] Use as Univers Compressor 3-15 directed ity o f For Neb 00:00: Medical Branch Nebulizer & 2022-0 Yes [id number] Use as Univers Compressor 3-15 directed ity o f For Neb 00:00: Medical Branch Nebulizer & 2022-0 Yes [id number] Use as Univers Compressor 3-15 directed ity o f For Neb 00:00: Medical Branch Nebulizer & 2022-0 Yes [id number] Use as Univers Compressor 3-15 directed ity o f For Neb 00:00: Medical Branch Nebulizer & 2022-0 Yes [id number] Use as Univers Compressor 3-15 directed ity o f For Neb 00:00: Medical Branch Nebulizer & 2022-0 Yes [id number] Use as Univers Compressor 3-15 directed ity o f For Neb 00:00: Medical Branch Nebulizer & 2022-0 Yes [id number] Use as Univers Compressor 3-15 directed ity o f For Neb 00:00: Medical Branch Nebulizer & 2022-0 Yes [id number] Use as Univers Compressor 3-15 directed ity o f For Neb 00:00: Medical Branch Nebulizer & 2022-0 Yes [id number] Use as Univers Compressor 3-15 directed ity o f For Neb 00:00: Medical Branch Nebulizer & 2022-0 Yes [id number] Use as Univers Compressor 3-15 directed ity o f For Neb 00:00: Medical Branch albuterol 2022-0 Yes [id number] 2{puff} Inhale 2 Univers 90 3-15 Puffs ity of mcg/actuati 00:00: every 4 [place] on inhaler 00 (four) Medical hours as Branch needed for Wheezing or Shortness of Breath. predniSONE 0 Yes [id number] 50mg Take 1 Univers 50 mg 3-15 tablet by ity of tablet 00:00: mouth in [place] 00 the Medical morning. Branch Nebulizer & 2022-0 Yes [id number] Use as Univers Compressor 3-15 directed ity o f For Neb 00:00: [place] Medical Branch albuterol Yes [id number] 2{puff} Inhale 2 Univers 90 3-15 Puffs ity of mcg/actuati 00:00: every 4 [place] on inhaler 00 (four) Medical hours as Branch needed for Wheezing or Shortness of Breath. albuterol 2022- No [id number] 2{puff} Inhale 2 Univers 90 3-15 03-26 Puffs ity of mcg/actuati 00:00: 00:00 every 4 [place] on inhaler 00 :00 (four) Medical hours as Branch needed for Wheezing or Shortness of Breath. predniSONE 2022- No [id number] 50mg Take 1 Univers 50 mg 12-01-18 tablet by ity of tablet 00:00: 00:00 mouth in [place] 00 :00 the Medical morning. Branch omeprazole 2022- No 40mg Take 40 mg Univers 40 mg 11-28-12 by mouth ity of capsule 14:11: 00:00 daily. [place] 21 :00 Medical Branch carvediloL 2022- No 25mg Take 25 mg Univers 25 mg 11-28-12 by mouth 2 ity of tablet 14:11: 00:00 (two) [place] 21 :00 times Medical daily with [place] meals. busPIRone 2022- No 30mg Take 30 mg U nivers 30 mg 11-28-12 by mouth 2 ity of tablet 14:11: 00:00 (two) [place] 21 :00 times Medical daily. Branch benazepriL 2022- No 10mg Take 10 mg Univers 10 mg 11-28-12 by mouth ity of tablet 14:11: 00:00 daily. [place] 21 :00 Medical Branch hydroCHLORO 2022- No 25mg Take 25 mg Univers thiazide 25 11-28-12 by mouth ity of mg tablet 14:11: 00:00 daily. [place] 21 :00 Medical Branch levalbutero Yes .63mg 0.63 mg, U nivers l (XOPENEX) 3-12 Inhalation it y of nebulizer 13:00: , TID, [place] solution 00 First dose Medic al 0.63 mg (after Branch last modificati on) on 11/28/22 at 0800, Until Discontinu ed, Routine ipratropium 2022-0 Yes .5mg 0.5 mg, Uni vers (ATROVENT) 11-27 Inhalation ity of 0.02 % 20:00: , TID, [place] nebulizer 00 First dose Medi lucho solution (after Branch 0.5 mg last modificati on) on [facility] 11/27/22 at 1400, Until Discontinu ed, Routine nicotine 2022-0 Yes 1{patch 1 Patch, Un igor (NICODERM) 11-27 } Topical, ity o f 21 mg/24 hr 17:30: Administer [place] patch 1 00 over 24 Medical Patch Hours, Branch Q24H, First dose on [facility] 11/27/22 at 1130, Until Discontinu ed, Routine busPIRone 2022-0 Yes 10mg 10 mg, Univer s (BUSPAR) 11-27 Oral, TID, ity o f tablet 10 16:15: First dose [place] mg 00 on [facility] Medical 11/27/22 at Branch 1015, Until Discontinu ed, Routine aspirin 2022-0 Yes 81mg 81 mg, Univers chewable 11-27 Oral, ity of tablet 81 16:15: DAILY, [place] mg 00 First dose Medical on [facility] Branch 11/27/22 at 1015, Until Discontinu ed, Routine foLIC acid 2022-0 Yes 1mg 1 mg, Univer s (FOLATE) 11-27 Oral, ity of tablet 1 mg 15:00: [place] Medical on [facility] Branch 11/27/22 at 0900, Until Discontinu ed, Routine rivaroxaban 2022-0 Yes 20mg 20 mg, Univ ers (XARELTO) 11-27 Oral, ity of tablet 20 15:00: DAILY, [place] mg 00 First dose Medical on [facility] 11/27/22 at 0900, Until Discontinu ed, [...] [place] mg 00 First dose Medical on [facility] Branch 11/27/22 at 0800, Until Discontinu ed, Routine levalbutero 2023-0 2023- No .31mg 0.31 mg, Univers l (XOPENEX) 11-27 0312 Inhalation i ty of nebulizer 14:00: 12:33 , TID, [place] solution 00 :58 First dose Medic al 0.31 mg on [facility] Branch 11/27/22 at 0800, Until Discontinu ed, Routine ipratropium 2022-0 2022- No .5mg 0.5 mg, [facility] (ATROVENT) 11-27 Inhalation it y of 0.02 % 14:00: 18:48 , QID, [place] nebulizer 00 :56 First dose Medi lucho solution on [facility] Branch 0.5 mg 11/27/22 at 0800, Until Discontinu ed, Routine thiamine 2022-0 Yes 100mg 100 mg, Unive rs (VITAMIN 3-11 Oral, ity of B1) tablet 08:30: DAILY, [place] 100 mg 00 First dose Medical (after Branch last modificati on) on [facility] 11/27/22 at 0230, Until Discontinu ed, Routine LORazepam 2022-0 Yes 1mg 1 mg, Slow [facility] (ATIVAN) 11-27 IV Push, ity of injection 1 08:16: Q4HPRN, [place] mg 19 Starting Medical on [facility] Branch 11/27/22 at 0216, Until Discontinu ed, [...] at 1999, Routine thiamine 3-0 3- No [id number] 100mg Take 1 Univers 100 mg 2-24 -27 tablet by ity of tablet 00:00: 04:59 mouth in [place] 00 :00 the [facility] for 30 days. thiamine 2022-0 2023- No [id number] 100mg Take 1 Univers 100 mg 2-24 -27 tablet by ity of tablet 00:00: 04:59 mouth in [place] 00 :00 the [facility] for 30 days. thiamine 2023-0 2023- No [id number] 100mg Take 1 Univers 100 mg 2-24 -27 tablet by ity of tablet 00:00: 04:59 mouth in [place] 00 :00 the [facility] for 30 days. thiamine 2023-0 2023- No [id number] 100mg Take 1 Univers 100 mg 2-24 -27 tablet by ity of tablet 00:00: 04:59 mouth in [place] 00 :00 the [facility] for 30 days. thiamine 2023-0 2023- No [id number] 100mg Take 1 Univers 100 mg 2-24 -27 tablet by ity of tablet 00:00: 04:59 mouth in [place] 00 :00 the [facility] morning [place] for 30 days. thiamine 2023-0 2023- No [id number] 100mg Take 1 Univers 100 mg 2-24 03-12 tablet by ity of tablet 00:00: 00:00 mouth in [place] 00 :00 the [facility] for 30 days. thiamine 2023-0 Yes 100mg 100 mg, Unive rs (VITAMIN 2-23 Oral, ity of B1) tablet 15:00: DAILY, [place] 100 mg 00 First dose Medical on [facility] 11/11/22 at 0900, Until Discontinu ed, Routine omeprazole 2023-0 Yes 40mg Take 40 mg U nivers 40 mg 2-23 by mouth ity of capsule 13:41: daily. [address] carvediloL 2023-0 Yes 25mg Take 25 mg U nivers 25 mg 2-23 by mouth 2 ity of tablet 13:41: (two) [place] [address] times Medical daily with Branch meals. busPIRone 2023-0 Yes 30mg Take 30 mg [facility] [place] 30 mg 2-23 by mouth 2 ity of tablet 13:41: (two) [place] [address] times Medical daily. Branch benazepriL 2023-0 Yes 10mg Take 10 mg U nivers 10 mg 2-23 by mouth ity of tablet 13:41: daily. [address] hydroCHLORO 2023-0 Yes 25mg Take 25 mg Univers thiazide 25 2-23 by mouth ity of mg tablet 13:41: daily. [address] omeprazole 2023-0 Yes 40mg Take 40 mg U nivers 40 mg 2-23 by mouth ity of capsule 13:41: daily. [address] carvediloL 2023-0 Yes 25mg Take 25 mg U nivers 25 mg 2-23 by mouth 2 ity of tablet 13:41: (two) [place] [address] times Medical daily with Branch meals. busPIRone 2023-0 Yes 30mg Take 30 mg [facility] [place] 30 mg 2-23 by mouth 2 ity of tablet 13:41: (two) [place] [address] times Medical daily. Branch benazepriL 2023-0 Yes 10mg Take 10 mg U nivers 10 mg 2-23 by mouth ity of tablet 13:41: daily. [address] hydroCHLORO 2023-0 Yes 25mg Take 25 mg Univers thiazide 25 2-23 by mouth ity of mg tablet 13:41: daily. [address] omeprazole 2023-0 Yes 40mg Take 40 mg U nivers 40 mg 2-23 by mouth ity of capsule 13:41: daily. [address] carvediloL 2023-0 Yes 25mg Take 25 mg U nivers 25 mg 2-23 by mouth 2 ity of tablet 13:41: (two) [place] [address] times Medical daily with Branch meals. busPIRone 2023-0 Yes 30mg Take 30 mg [place] 30 mg 2-23 by mouth 2 ity of tablet 13:41: (two) [place] [address] times Medical daily. Branch benazepriL 2023-0 Yes 10mg Take 10 mg U nivers 10 mg 2-23 by mouth ity of tablet 13:41: daily. [address] hydroCHLORO 2023-0 Yes 25mg Take 25 mg Univers thiazide 25 2-23 by mouth ity of mg tablet 13:41: daily. [address] omeprazole 2023-0 Yes 40mg Take 40 mg U nivers 40 mg 2-23 by mouth ity of capsule 13:41: daily. [address] carvediloL 2023-0 Yes 25mg Take 25 mg U nivers 25 mg 2-23 by mouth 2 ity of tablet 13:41: (two) [place] [address] times Medical daily with Branch meals. busPIRone 2023-0 Yes 30mg Take 30 mg [place] 30 mg 2-23 by mouth 2 ity of tablet 13:41: (two) [place] [address] times Medical daily. Branch benazepriL 2023-0 Yes 10mg Take 10 mg U nivers 10 mg 2-23 by mouth ity of tablet 13:41: daily. [address] hydroCHLORO 2023-0 Yes 25mg Take 25 mg Univers thiazide 25 2-23 by mouth ity of mg tablet 13:41: daily. [address] omeprazole 2023-0 Yes 40mg Take 40 mg U nivers 40 mg 2-23 by mouth ity of capsule 13:41: daily. [address] carvediloL 2023-0 Yes 25mg Take 25 mg U nivers 25 mg 2-23 by mouth 2 ity of tablet 13:41: (two) [place] [address] times Medical daily with Branch meals. busPIRone 2023-0 Yes 30mg Take 30 mg [place] 30 mg 2-23 by mouth 2 ity of tablet 13:41: (two) [place] [address] times Medical daily. Branch benazepriL 2023-0 Yes 10mg Take 10 mg U nivers 10 mg 2-23 by mouth ity of tablet 13:41: daily. [address] hydroCHLORO 2023-0 Yes 25mg Take 25 mg Univers thiazide 25 2-23 by mouth ity of mg tablet 13:41: daily. [place] 29 Medical Branch foLIC acid 2022- No 1mg 1 mg, Unive rs (FOLATE) 2-11 11- Oral, ity of tablet 1 mg 00:15: 00:26 ONCE, 1 [place] 00 :00 dose, On Medical Wed Branch 11/10/22 at 1815, Routine benzocaine- 0 Yes [id number] 1{lozen Take 1 Univers menthoL 2-23 ge} Lozenge by ity of lozenge 00:00: mouth [place] 00 every 4 Medical (four) Branch hours as needed for Sore throat. budesonide- Yes [id number] 2{puff} Inhale 2 Univers formoteroL 2-23 Puffs in ity o f 80-4.5 00:00: the [place] mcg/actuati 00 morning Medic al on inhaler and 2 Branch Puffs in the evening. benzocaine- Yes [id number] 1{lozen Take 1 Univers menthoL 2-23 ge} Lozenge by ity of lozenge 00:00: mouth [place] 00 every 4 Medical (four) Branch hours as needed for Sore throat. budesonide- Yes [id number] 2{puff} Inhale 2 Univers formoteroL 2-23 Puffs in ity o f 80-4.5 00:00: the [place] mcg/actuati 00 morning Medic al on inhaler and 2 Branch Puffs in the evening. benzocaine- Yes [id number] 1{lozen Take 1 Univers menthoL 2-23 ge} Lozenge by ity of lozenge 00:00: mouth [place] 00 every 4 Medical (four) Branch hours as needed for Sore throat. budesonide- Yes [id number] 2{puff} Inhale 2 Univers formoteroL 2-23 Puffs in ity o f 80-4.5 00:00: the [place] mcg/actuati 00 morning Medic al on inhaler and 2 Branch Puffs in the evening. benzocaine- 0 Yes [id number] 1{lozen Take 1 Univers menthoL 2-23 ge} Lozenge by ity of lozenge 00:00: mouth [place] 00 every 4 Medical (four) Branch hours as needed for Sore throat. budesonide- 2022-0 Yes [id number] 2{puff} Inhale 2 Univers formoteroL 2-23 Puffs in ity o f 80-4.5 00:00: the [place] mcg/actuati 00 morning Medic al on inhaler and 2 Branch Puffs in the evening. benzocaine- 2022-0 Yes [id number] 1{lozen Take 1 Univers menthoL 2-23 ge} Lozenge by ity of lozenge 00:00: mouth [place] 00 every 4 Medical (four) Branch hours as needed for Sore throat. budesonide- 2022-0 Yes [id number] 2{puff} Inhale 2 Univers formoteroL 2-23 Puffs in ity o f 80-4.5 00:00: the [place] mcg/actuati 00 morning Medic al on inhaler and 2 Branch Puffs in the evening. benzocaine- 2022-0 2022- No [id number] 1{lozen Take 1 Univers menthoL 2-23 03-12 ge} Lozenge by ity o f lozenge 00:00: 00:00 mouth [place] 00 :00 every 4 Medical (four) Branch hours as needed for Sore throat. budesonide- 2022-0 2022- No [id number] 2{puff} Inhale 2 Univers formoteroL 2-23 03-12 Puffs in ity of 80-4.5 00:00: 00:00 the [place] mcg/actuati 00 :00 morning Medic al on inhaler and 2 Branch Puffs in the evening. sodium 2022-0 2022- No [id number] 1g Take 1 Uni vers chloride 1 2-23 03-06 tablet by ity of gram tablet 00:00: 05:59 mouth in [place] 00 :00 the Medical morning Branch and 1 tablet at noon and 1 tablet in the evening. Take with meals. Do all this for 10 days. sodium 3-0 2022- No [id number] 1g Take 1 Uni vers chloride 1 2-23 03-06 tablet by ity of gram tablet 00:00: 05:59 mouth in [place] 00 :00 the Medical morning Branch and 1 tablet at noon and 1 tablet in the evening. Take with meals. Do all this for 10 days. sodium 2022-0 2022- No [id number] 1g Take 1 Uni vers chloride 1 11-11- tablet by ity of gram tablet 00:00: 05:59 mouth in [place] 00 :00 [facility] and 1 tablet at noon and 1 tablet in the evening. Take with meals. Do all this for 10 days. sodium 2023-0 2022- No [id number] 1g Take 1 Uni vers chloride 1 11-11- tablet by ity of gram tablet 00:00: 05:59 mouth in [place] 00 :00 [facility] and 1 tablet at noon and 1 tablet in the evening. Take with meals. Do all this for 10 days. levoFLOXaci 2022-0 2022- No [id number] 750mg Take 1 Univers n 750 mg 11-11 tablet by ity o f tablet 00:00: 05:59 mouth [place] 00 :00 every 24 Medical ([facility]) hours for 5 days. levoFLOXaci 2022-0 2022- No [id number] 750mg Take 1 Univers n 750 mg 11-11 tablet by ity o f tablet 00:00: 05:59 mouth [place] 00 :00 every 24 Medical ([facility]) hours for 5 days. predniSONE 2022-0 2022- No [id number] 40mg Take 2 Univers 20 mg 2-11 11-27 tablets by ity of tablet 00:00: 05:59 mouth in [place] 00 :00 [facility] for 3 days. predniSONE 2023-0 2022- No [id number] 40mg Take 2 Univers 20 mg 2-11 11-27 tablets by ity of tablet 00:00: 05:59 mouth in [place] 00 :00 [facility] for 3 days. sodium 2022-0 Yes 1g 1 g, Oral, Unive rs chloride 2- TID MEALS, ity o f tablet 1 g 23:15: First dose [place] 00 on Tue11/10/22 at [place] 1715, Until Discontinu ed, Routine benzocaine- 2022-0 [...] ty of succ 15:00: 14:59 s, DAILY, [place] (SOLU-MEDRO 00 :00 4 doses, Medi lucho L (PF)) First dose Branch injection on [...] First dose [place] mg 00 on [facility] 11/09/22 at Branch 2000, Until Discontinu ed, Routine carvediloL 2022-0 Yes 25mg 25 mg, [facility] rs (COREG) - Oral, BID ity of tablet 25 23:00: MEALS, [place] mg 00 First dose Medical on [facility] 11/09/22 at 1700, Until Discontinu ed, Routine ipratropium 2022-0 Yes .5mg 0.5 mg, Uni vers (ATROVENT) - Inhalation ity of 0.02 % 22:00: , Q4H, [place] nebulizer 00 First dose Medi lucho solution on [facility] 0.5 mg 11/09/22 at 1600, Until Discontinu ed, Routine albuterol 2022-0 Yes 2.5mg 2.5 mg, Univ ers (PROVENTIL) 2 Inhalation it y of 2.5 mg /3 22:00: , Q4H, [place] mL (0.083 00 First dose Medi lucho %) on [facility] nebulizer 11/09/22 at solution 1600, 2.5 mg Until Discontinu ed, Routine NaCl 0.9% 2022-0 2023- No 500mL at 999 Univ ers (NS) bolus 11-09 02-21 mL/hr, 500 it y of infusion 20:15: 21:30 mL, IV [place] 500 mL 00 :21 Infusion, Medical ONCE, 1 Branch dose, On [facility] 11/09/22 at 1415, STAT ondansetron 2022-0 Yes 4mg 4 mg, Slow Univers (ZOFRAN 2-21 IV Push, ity of (PF)) 20:04: Q6HPRN, [place] injection 4 17 Starting Medi lucho mg on e Branch 11/09/22 at 1404, Until Discontinu ed, Routine, Nausea and Vomiting (N/V) acetaminoph 3-0 Yes 650mg 650 mg, Un igor en 11-09 Oral, ity of (TYLENOL) 20:04: Q6HPRN, [place] tablet 650 07 Starting Medic al mg [...] 0.02 % 09:00: 08:59 , ONCE, 1 [place] nebulizer 00 :00 dose, On Medica l [...] 00 :00 dose, On Medica l %) [facility] Branch nebulizer 11/09/22 at solution 0145, STAT 2.5 mg cephALEXin Yes [id number] 500mg Take 1 Univers (KEFLEX) 05-22 capsule by ity o f 500 mg 00:00: mouth 4 [place] capsule 00 (four) Medical times Branch daily. cephALEXin Yes [id number] 500mg Take 1 Univers (KEFLEX) 05-22 capsule by ity o f 500 mg 00:00: mouth 4 [place] capsule 00 (four) Medical times Branch daily. cephALEXin 2020-2022- No [id number] 500mg Take 1 Univers (KEFLEX) 05-22 capsule by ity of 500 mg 00:00: 00:00 mouth 4 [place] capsule 00 :00 (four) Medical times Branch daily. cefTRIAXone 2020- No 1000mg 1,000 mg, Univers (ROCEPHIN) 3-26 03- IV ity of 1,000 mg in 19:00: 18:23 Piggyback, [place] NaCl 0.9% 00 :00 ONCE, 1 Medical (NS) 50 mL dose, Fri Bran ch MINI-BAG 12/12/20 at 1400, 50 mL
Reas on for Anti-Infec tive: Empiric Therapy for Suspected Infection< br>Empiric Therapy Site: Urine
D uration of therapy: 72 hours carvediloL 2021-0 Yes 25mg Take 25 mg U nivers 25 mg 3-26 by mouth 2 ity of tablet 18:38: (two) [place] [address] times Medical daily with Branch meals. busPIRone 2021-0 Yes 30mg Take 30 mg [place] 30 mg 3-26 by mouth 2 ity of tablet 18:38: (two) [place] [address] times Medical daily. Branch benazepriL 1-0 Yes 10mg Take 10 mg U nivers 10 mg 3-26 by mouth ity of tablet 18:38: daily. [address] hydroCHLORO 2020-0 Yes 25mg Take 25 mg Univers thiazide 25 3-26 by mouth ity of mg tablet 18:38: daily. [address] carvediloL 2020-0 Yes 25mg Take 25 mg U nivers 25 mg 3-26 by mouth 2 ity of tablet 18:38: (two) [place] [address] times Medical daily with Branch meals. busPIRone 2021-0 Yes 30mg Take 30 mg Un gior 30 mg 3-26 by mouth 2 ity of tablet 18:38: (two) [place] [address] times Medical daily. Branch benazepriL 2021-0 Yes 10mg Take 10 mg U nivers 10 mg 3-26 by mouth ity of tablet 18:38: daily. [address] hydroCHLORO 2021-0 Yes 25mg Take 25 mg Univers thiazide 25 3-26 by mouth ity of mg tablet 18:38: daily. [address] carvediloL 2021-0 Yes 25mg Take 25 mg U nivers 25 mg 3-26 by mouth 2 ity of tablet 18:38: (two) [place] [address] times Medical daily with Branch meals. busPIRone 2021-0 Yes 30mg Take 30 mg [place] 30 mg 3-26 by mouth 2 ity of tablet 18:38: (two) [place] 04 times Medical daily. Branch benazepriL 2021-0 Yes 10mg Take 10 mg U nivers 10 mg 3-26 by mouth ity of tablet 18:38: daily. [address] hydroCHLORO 2021-0 Yes 25mg Take 25 mg Univers thiazide 25 3-26 by mouth ity of mg tablet 18:38: daily. [address] carvediloL 2021-0 Yes 25mg Take 25 [...] by mouth ity of tablet 18:38: daily. [address] hydroCHLORO 2021-0 Yes 25mg Take 25 mg Univers thiazide 25 3-26 by mouth ity of mg tablet 18:38: daily. [address] carvediloL 2021-0 Yes 25mg Take 25 mg U nivers 25 mg 3-26 by mouth 2 ity of tablet 18:38: (two) [place] [address] times Medical daily with Branch meals. busPIRone 2021-0 Yes 30mg Take 30 mg [place] 30 mg 3-26 by mouth 2 ity of tablet 18:38: (two) [place] 04 times Medical daily. Branch benazepriL 2021-0 Yes 10mg Take 10 mg U nivers 10 mg 3-26 by mouth ity of tablet 18:38: daily. [address] hydroCHLORO 2021-0 Yes 25mg Take 25 mg Univers thiazide 25 3-26 by mouth ity of mg tablet 18:38: daily. [address] carvediloL 2021-0 Yes 25mg Take 25 mg U nivers 25 mg 3-26 by mouth 2 ity of tablet 18:38: (two) [place] [address] times Medical daily with Branch meals. busPIRone 2021-0 Yes 30mg Take 30 mg [place] 30 mg 3-26 by mouth 2 ity of tablet 18:38: (two) [place] 04 times Medical daily. Branch benazepriL 2021-0 Yes 10mg Take 10 mg U nivers 10 mg 3-26 by mouth ity of tablet 18:38: daily. [address] hydroCHLORO 2021-0 Yes 25mg Take 25 mg Univers thiazide 25 3-26 by mouth ity of mg tablet 18:38: daily. [address] carvediloL 2021-0 Yes 25mg Take 25 mg U nivers 25 mg 3-26 by mouth 2 ity of tablet 18:38: (two) [place] [address] times Medical daily with Branch meals. busPIRone 2021-0 Yes 30mg Take 30 mg [place] 30 mg 3-26 by mouth 2 ity of tablet 18:38: (two) [place] [address] times Medical daily. Branch benazepriL 2021-0 Yes 10mg Take 10 mg U nivers 10 mg 3-26 by mouth ity of tablet 18:38: daily. [address] hydroCHLORO 1-0 Yes 25mg Take 25 mg Univers thiazide 25 3-26 by mouth ity of mg tablet 18:38: daily. [address] carvediloL 2021-0 Yes 25mg Take 25 mg U nivers 25 mg 3-26 by mouth 2 ity of tablet 18:38: (two) [place] [address] times Medical daily with Branch meals. busPIRone 2021-0 Yes 30mg Take 30 mg [place] 30 mg 3-26 by mouth 2 ity of tablet 18:38: (two) [place] [address] times Medical daily. Branch benazepriL 2021-0 Yes 10mg Take 10 mg U nivers 10 mg 3-26 by mouth ity of tablet 18:38: daily. [address] hydroCHLORO 2021-0 Yes 25mg Take 25 mg Univers thiazide 25 3-26 by mouth ity of mg tablet 18:38: daily. [address] carvediloL 2021-0 Yes 25mg Take 25 mg U nivers 25 mg 3-26 by mouth 2 ity of tablet 18:38: (two) [place] [address] times Medical daily with Branch meals. busPIRone 2021-0 Yes 30mg Take 30 mg [place] 30 mg 3-26 by mouth 2 ity of tablet 18:38: (two) [place] [address] times Medical daily. Branch benazepriL 2021-0 Yes 10mg Take 10 mg U nivers 10 mg 3-26 by mouth ity of tablet 18:38: daily. [address] hydroCHLORO 1-0 Yes 25mg Take 25 mg Univers thiazide 25 3-26 by mouth ity of mg tablet 18:38: daily. [address] carvediloL 2021-0 Yes 25mg Take 25 [...] by mouth ity of tablet 18:38: daily. [address] hydroCHLORO 1-0 Yes 25mg Take 25 mg Univers thiazide 25 3-26 by mouth ity of mg tablet 18:38: daily. [address] carvediloL 1-0 Yes 25mg Take 25 [...] by mouth ity of tablet 18:38: daily. [address] hydroCHLORO 1-0 Yes 25mg Take 25 mg Univers thiazide 25 3-26 by mouth ity of mg tablet 18:38: daily. [address] carvediloL 2021-0 Yes 25mg Take 25 [...] by mouth ity of tablet 18:38: daily. [address] hydroCHLORO 2021-0 Yes 25mg Take 25 mg Univers thiazide 25 3-26 by mouth ity of mg tablet 18:38: daily. [address] carvediloL 2021-0 Yes 25mg Take 25 mg U nivers 25 mg 3-26 by mouth 2 ity of tablet 18:38: (two) [place] [address] times Medical daily with Branch meals. busPIRone 2021-0 Yes 30mg Take 30 mg [facility] 30 mg 3-26 by mouth 2 ity of tablet 18:38: (two) [place] 04 times Medical daily. Branch benazepriL 2021-0 Yes 10mg Take 10 mg U nivers 10 mg 3-26 by mouth ity of tablet 18:38: daily. [address] hydroCHLORO 1-0 Yes 25mg Take 25 mg Univers thiazide 25 3-26 by mouth ity of mg tablet 18:38: daily. [address] carvediloL 1-0 Yes 25mg Take 25 mg U nivers 25 mg 3-26 by mouth 2 ity of tablet 18:38: (two) [place] [address] times Medical daily with Branch meals. busPIRone 2021-0 Yes 30mg Take 30 mg [facility] [place] 30 mg 3-26 by mouth 2 ity of tablet 18:38: (two) [place] 04 times Medical daily. Branch benazepriL 1-0 Yes 10mg Take 10 mg U nivers 10 mg 3-26 by mouth ity of tablet 18:38: daily. [address] hydroCHLORO 1-0 Yes 25mg Take 25 mg Univers thiazide 25 3-26 by mouth ity of mg tablet 18:38: daily. [address] carvediloL 2021-0 Yes 25mg Take 25 mg U nivers 25 mg 3-26 by mouth 2 ity of tablet 18:38: (two) [place] [address] times Medical daily with Branch meals. busPIRone 2021-0 Yes 30mg Take 30 mg [place] 30 mg 3-26 by mouth 2 ity of tablet 18:38: (two) [place] 04 times Medical daily. Branch benazepriL 2021-0 Yes 10mg Take 10 mg U nivers 10 mg 3-26 by mouth ity of tablet 18:38: daily. [address] hydroCHLORO 2021-0 Yes 25mg Take 25 mg Univers thiazide 25 12-12 by mouth ity of mg tablet 18:38: daily. [address] iohexol 2020- No [id number] 120mL 120 mL, Univers (OMNIPAQUE 12-12 Intravenou it y of 350 17:30: 17:21 s, ONCE, 1 [place] BULK-150 00 :00 dose, Fri Medica l mL) 12/12/20 at Branch injection 1230, 120 mL Routine aspirin 81 2020- No 81mg Take 81 mg Univers mg EC 12-12 by mouth ity of tablet 16:57: 00:00 daily. [place] 40 :00 [facility] Branch varenicline 2020- No 1mg Take 1 mg Univers (CHANTIX) 1 12-12 by mouth 2 i ty of mg tablet 16:57: 00:00 (two) [place] 18 :00 times Medical daily. Branch predniSONE 2020- No 20mg Take 20 mg Univers 20 mg 12-12 by mouth ity of tablet 16:57: 00:00 daily. [place] 12 :00 [facility] Branch fluticasone 2020- No 1{puff} Inhale 1 Univers -umeclidin- 12-12 Puff ity of vilanter 16:56: 00:00 daily. [place] (TRELEGY 46 :00 Medical ELLIPTA) Branch 100-62.5-25 mcg DsDv cefpodoxime Yes [id number] 100mg Take 1 Univers 100 mg -26 tablet by ity of tablet 00:00: mouth 2 [place] 00 (two) Medical times Branch daily. cefpodoxime 2020-0 Yes [id number] 100mg Take 1 Univers 100 mg 3-26 tablet by ity of tablet 00:00: mouth 2 [place] 00 (two) Medical times Branch daily. cefpodoxime 2020-0 Yes [id number] 100mg Take 1 Univers 100 mg 3-26 tablet by ity of tablet 00:00: mouth 2 [place] 00 (two) Medical times Branch daily. cefpodoxime 2020-0 Yes [id number] 100mg Take 1 Univers 100 mg -26 tablet by ity of tablet 00:00: mouth 2 [place] 00 (two) Medical times Branch daily. cefpodoxime 2021-0 Yes [id number] 100mg Take 1 Univers 100 mg 3-26 tablet by ity of tablet 00:00: mouth [place] (two) Medical times Branch daily. cefpodoxime 2021-0 Yes [id number] 100mg Take 1 Univers 100 mg 3-26 tablet by ity of tablet 00:00: mouth [place] (two) Medical times Branch daily. cefpodoxime 2021-0 Yes [id number] 100mg Take 1 Univers 100 mg 3-26 tablet by ity of tablet 00:00: mouth [place] (two) Medical times Branch daily. cefpodoxime 2021-0 Yes [id number] 100mg Take 1 Univers 100 mg 3-26 tablet by ity of tablet 00:00: mouth [place] ([facility]) Medical times Branch daily. cefpodoxime 2021-0 Yes [id number] 100mg Take 1 Univers 100 mg 3-26 tablet by ity of tablet 00:00: mouth [place] ([facility]) Medical times Branch daily. cefpodoxime 2021-0 Yes [id number] 100mg Take 1 Univers 100 mg 3-26 tablet by ity of tablet 00:00: mouth [place] (two) Medical times Branch daily. cefpodoxime 2021-0 Yes [id number] 100mg Take 1 Univers 100 mg 3-26 tablet by ity of tablet 00:00: mouth [place] (two) Medical times Branch daily. cefpodoxime 2021-0 Yes [id number] 100mg Take 1 Univers 100 mg 3-26 tablet by ity of tablet 00:00: mouth [place] (two) Medical times Branch daily. cefpodoxime 2021-0 Yes [id number] 100mg Take 1 Univers 100 mg 3-26 tablet by ity of tablet 00:00: mouth [place] (two) Medical times Branch daily. cefpodoxime 2021-0 Yes [id number] 100mg Take 1 Univers 100 mg 3-26 tablet by ity of tablet 00:00: mouth [place] (two) Medical times Branch daily. cefpodoxime 2021-0 Yes [id number] 100mg Take 1 Univers 100 mg 3-26 tablet by ity of tablet 00:00: mouth [place] (two) Medical times Branch daily. cefpodoxime 2021-0 2023- No [id number] 100mg Take 1 Univers 100 mg -11-11 tablet by ity of tablet 00:00: 00:00 mouth 2 [place] 00 :00 (two) Medical times Branch daily. cefpodoxime 2020- No [id number] 100mg Take 1 Univers 100 mg 3-12 12- tablet by ity of tablet 00:00: 00:00 mouth 2 [place] 00 :00 (two) Medical times [place] daily for 7 days. XARELTO 15 0 Yes Univers mg tablet - ity of 00:00: [place] Medical Branch XARELTO 15 2020-0 Yes Univers mg tablet 10-16 ity of 00:00: [place] Medical Branch XARELTO 15 2020-0 Yes Univers mg tablet 10-16 ity of 00:00: [place] Medical Branch XARELTO 15 2020-0 Yes Univers mg tablet 10-16 ity of 00:00: [place] Medical Branch XARELTO 15 2020-0 Yes Univers mg tablet 10-16 ity of 00:00: [place] Medical Branch XARELTO 15 2020-0 Yes Univers mg tablet 10-16 ity of 00:00: [place] [address] Medical Branch XARELTO 15 2020-0 Yes Univers mg tablet - ity of 00:00: [place] Medical Branch XARELTO 15 2020-0 Yes Univers mg tablet 10-16 ity of 00:00: [place] [address] Medical Branch XARELTO 15 2020-0 Yes Univers mg tablet 10-16 ity of 00:00: [place] Medical Branch XARELTO 15 2020-0 Yes Univers mg tablet - ity of 00:00: [place] Medical Branch XARELTO 15 2020-0 Yes Univers mg tablet -28 ity of 00:00: [place] [address] [facility] Branch XARELTO 15 2020-0 Yes Univers mg tablet -28 ity of 00:00: [place] [facility] XARELTO 15 2020-0 Yes Univers mg tablet - ity of 00:00: [place] [facility] XARELTO 15 2020-0 Yes Univers mg tablet -28 ity of 00:00: [place] [address] [facility] Branch XARELTO 15 2020-0 Yes Univers mg tablet -28 ity of 00:00: [place] [facility] XARELTO 15 2020-0 Yes Univers mg tablet 10-16 ity of 00:00: [place] 00 [facility] Branch XARELTO 15 2020-0 Yes Univers mg tablet 10-16 ity of 00:00: [place] 00 Medical Branch XARELTO 15 2020-0 Yes Univers mg tablet 10-16 ity of 00:00: [place] 00 Medical Branch XARELTO 15 2020-0 Yes Univers mg tablet 10-16 ity of 00:00: [place] 00 Medical Branch XARELTO 15 2020-0 Yes Univers mg tablet 10-16 ity of 00:00: [place] 00 Medical Branch XARELTO 15 2020-0 Yes Univers mg tablet 10-16 ity of 00:00: [place] 00 Medical Branch XARELTO 15 2020-0 Yes Univers mg tablet 10-16 ity of 00:00: [place] [address] [facility] Branch XARELTO 15 2020-0 Yes Univers mg tablet 10-16 ity of 00:00: [place] [address] [facility] Branch XARELTO 15 2020-0 2023- No Univer s mg tablet 10-16-12 ity of 00:00: 00:00 [place] 00 :00 Medical Branch omeprazole 2018- Yes 40mg Take 40 mg U nivers 40 mg 2-10 by mouth ity of capsule 00:11: daily. [address] Branch omeprazole 2018-09 Yes 40mg Take 40 mg U nivers 40 mg 2-10 by mouth ity of capsule 00:11: daily. [address] Branch varenicline 2018-09 Yes 1mg Take 1 mg U nivers (CHANTIX) 1 2-10 by mouth 2 it y of mg tablet 00:11: (two) [address] daily. Branch predniSONE 2018-09 Yes 20mg Take 20 mg U nivers 20 mg 2-10 by mouth ity of tablet 00:11: daily. [address] Branch omeprazole 2018-09 Yes 40mg Take 40 mg U nivers 40 mg 2-10 by mouth ity of capsule 00:11: daily. [address] Branch fluticasone 2018-09 Yes 1{puff} Inhale 1 Univers -umeclidin- 2-10 Puff ity of vilanter 00:11: daily. [place] (TRELE 42 Medical ELLIPTA) Branch 100-62.5-25 mcg DsDv aspirin 81 2018-09 Yes 81mg Take 81 mg U nivers mg EC 2-10 by mouth ity of tablet 00:11: daily. [address] varenicline 2018-09 Yes 1mg Take 1 mg U nivers (CHANTIX) 1 2-10 by mouth 2 it y of mg tablet 00:11: (two) [place] [address] times Medical daily. Branch predniSONE 2018-09 Yes 20mg Take 20 mg U nivers 20 mg 2-10 by mouth ity of tablet 00:11: daily. [address] omeprazole 2018-09 Yes 40mg Take 40 mg U nivers 40 mg 2-10 by mouth ity of capsule 00:11: daily. [address] fluticasone 2018-09 Yes 1{puff} Inhale 1 Univers -umeclidin- 2-10 Puff ity of vilanter 00:11: daily. [place] ([address]) Branch 100-62.5-25 mcg DsDv aspirin 81 2018-09 Yes 81mg Take 81 mg U nivers mg EC 2-10 by mouth ity of tablet 00:11: daily. [address] varenicline 2018-09 Yes 1mg Take 1 mg U nivers (CHANTIX) 1 2-10 by mouth 2 it y of mg tablet 00:11: (two) [address] Medical daily. Branch predniSONE 2018-09 Yes 20mg Take 20 mg U nivers 20 mg 2-10 by mouth ity of tablet 00:11: daily. [address] omeprazole 2018-09 Yes 40mg Take 40 mg U nivers 40 mg 2-10 by mouth ity of capsule 00:11: daily. [address] fluticasone 2018-09 Yes 1{puff} Inhale 1 Univers -umeclidin- 2-10 Puff ity of vilanter 00:11: daily. [place] ([address]) Branch 100-62.5-25 mcg DsDv aspirin 81 2018-09 Yes 81mg Take 81 mg U nivers mg EC 2-10 by mouth ity of tablet 00:11: daily. [address] varenicline 2018-09 Yes 1mg Take 1 mg U nivers (CHANTIX) 1 2-10 by mouth 2 it y of mg tablet 00:11: (two) [place] [address] times Medical daily. Branch predniSONE 2018-09 Yes 20mg Take 20 mg U nivers 20 mg 2-10 by mouth ity of tablet 00:11: daily. [address] omeprazole 2018-09 Yes 40mg Take 40 mg U nivers 40 mg 2-10 by mouth ity of capsule 00:11: daily. [address] fluticasone 2018-09 Yes 1{puff} Inhale 1 Univers -umeclidin- 2-10 Puff ity of vilanter 00:11: daily. [address]) Branch 100-62.5-25 mcg DsDv aspirin 81 2018-09 Yes 81mg Take 81 mg U nivers mg EC 2-10 by mouth ity of tablet 00:11: daily. [address] varenicline 2018-09 Yes 1mg Take 1 mg U nivers (CHANTIX) 1 2-10 by mouth 2 it y of mg tablet 00:11: (two) [address] daily. Branch predniSONE 2018-09 Yes 20mg Take 20 mg U nivers 20 mg 2-10 by mouth ity of tablet 00:11: daily. [address] omeprazole 2018-09 Yes 40mg Take 40 mg U nivers 40 mg 2-10 by mouth ity of capsule 00:11: daily. [address] fluticasone 2018-09 Yes 1{puff} Inhale 1 Univers -umeclidin- 2-10 Puff ity of vilanter 00:11: daily. [place] ([address]) Branch 100-62.5-25 mcg DsDv aspirin 81 2018-09 Yes 81mg Take 81 mg U nivers mg EC 2-10 by mouth ity of tablet 00:11: daily. [address] varenicline 2018-09 Yes 1mg Take 1 mg U nivers (CHANTIX) 1 2-10 by mouth 2 it y of mg tablet 00:11: (two) [place] [address] times [facility] daily. Branch predniSONE 2018-09 Yes 20mg Take 20 mg U nivers 20 mg 2-10 by mouth ity of tablet 00:11: daily. [address] omeprazole 2018-09 Yes 40mg Take 40 mg U nivers 40 mg 2-10 by mouth ity of capsule 00:11: daily. [address] fluticasone 2018-09 Yes 1{puff} Inhale 1 Univers -umeclidin- 2-10 Puff ity of vilanter 00:11: daily. [place] (TRELE [address] Medical [facility]) Branch 100-62.5-25 mcg DsDv aspirin 81 2018- Yes 81mg Take 81 mg U nivers mg EC 2-10 by mouth ity of tablet 00:11: daily. [address] omeprazole 2018- Yes 40mg Take 40 mg U nivers 40 mg 2-10 by mouth ity of capsule 00:11: daily. [address] omeprazole 2018- Yes 40mg Take 40 mg U nivers 40 mg 2-10 by mouth ity of capsule 00:11: daily. [address] omeprazole 2018- Yes 40mg Take 40 mg U nivers 40 mg 2-10 by mouth ity of capsule 00:11: daily. [address] omeprazole 2018- Yes 40mg Take 40 mg U nivers 40 mg 2-10 by mouth ity of capsule 00:11: daily. [address] omeprazole 2018- Yes 40mg Take 40 mg U nivers 40 mg 2-10 by mouth ity of capsule 00:11: daily. [address] omeprazole 2018- Yes 40mg Take 40 mg U nivers 40 mg 2-10 by mouth ity of capsule 00:11: daily. [address] omeprazole 2018- Yes 40mg Take 40 mg U nivers 40 mg 2-10 by mouth ity of capsule 00:11: daily. [address] omeprazole 2018- Yes 40mg Take 40 mg U nivers 40 mg 2-10 by mouth ity of capsule 00:11: daily. [address] omeprazole 2018- Yes 40mg Take 40 mg U nivers 40 mg 2-10 by mouth ity of capsule 00:11: daily. [address] omeprazole 2018- Yes 40mg Take 40 mg U nivers 40 mg 2-10 by mouth ity of capsule 00:11: daily. [address] omeprazole 2018- Yes 40mg Take 40 mg U nivers 40 mg 2-10 by mouth ity of capsule 00:11: daily. [address] omeprazole 2018- Yes 40mg Take 40 mg U nivers 40 mg 2-10 by mouth ity of capsule 00:11: daily. [address] omeprazole 2018- Yes 40mg Take 40 mg U nivers 40 mg 2-10 by mouth ity of capsule 00:11: daily. [place] 42 Medical Branch KCL 20 mEq 2018-09 Yes [id number] 40meq Take 2 Univers tablet 2-09 tablets by ity of 00:00: mouth [place] 00 daily. Medical Branch KCL 20 mEq 2018-09 Yes [id number] 40meq Take 2 Univers tablet 2-09 tablets by ity of 00:00: mouth [place] 00 daily. Medical Branch atorvastati 2018-09 Yes [id number] 20mg Take 1 Univers n 20 mg 2-09 tablet by ity of tablet 00:00: mouth at [place] 00 bedtime. Medical Branch metoprolol 2018-09 Yes [id number] 50mg Take 1 Univers succinate 2-09 tablet by ity o f XL 50 mg 24 00:00: mouth 2 [place] hr tablet 00 (two) Medical times Branch daily. furosemide 2018-09 Yes [id number] 40mg Take 1 Univers 40 mg 2-09 tablet by ity of tablet 00:00: mouth [place] 00 every Medical morning Branch and evening. KCL 20 mEq 2018-09 Yes [id number] 40meq Take 2 Univers tablet 2-09 tablets by ity of 00:00: mouth [place] 00 daily. Medical Branch atorvastati 2018-09 Yes [id number] 20mg Take 1 Univers n 20 mg 2-09 tablet by ity of tablet 00:00: mouth at [place] 00 bedtime. Medical Branch metoprolol 2018-09 Yes [id number] 50mg Take 1 Univers succinate 2-09 tablet by ity o f XL 50 mg 24 00:00: mouth 2 [place] hr tablet 00 (two) Medical times Branch daily. furosemide 2018-09 Yes [id number] 40mg Take 1 Univers 40 mg 2-09 tablet by ity of tablet 00:00: mouth [place] 00 every Medical morning Branch and evening. KCL 20 mEq 2018-09 Yes [id number] 40meq Take 2 Univers tablet 2-09 tablets by ity of 00:00: mouth [place] 00 daily. Medical Branch atorvastati 2018-09 Yes [id number] 20mg Take 1 Univers n 20 mg 2-09 tablet by ity of tablet 00:00: mouth at [place] 00 bedtime. Medical Branch metoprolol 2018-09 Yes [id number] 50mg Take 1 Univers succinate 2-09 tablet by ity o f XL 50 mg 24 00:00: mouth 2 [place] hr tablet 00 (two) Medical times Branch daily. furosemide 2018-09 Yes [id number] 40mg Take 1 Univers 40 mg 2-09 tablet by ity of tablet 00:00: mouth [place] 00 every Medical morning Branch and evening. KCL 20 mEq 2018-09 Yes [id number] 40meq Take 2 Univers tablet 2-09 tablets by ity of 00:00: mouth [place] 00 daily. Medical Branch atorvastati 2018-09 Yes [id number] 20mg Take 1 Univers n 20 mg 2-09 tablet by ity of tablet 00:00: mouth at [place] 00 bedtime. Medical Branch metoprolol 2018-09 Yes [id number] 50mg Take 1 Univers succinate 2-09 tablet by ity o f XL 50 mg 24 00:00: mouth 2 [place] hr tablet 00 (two) Medical times Branch daily. furosemide 2018-09 Yes [id number] 40mg Take 1 Univers 40 mg 2-09 tablet by ity of tablet 00:00: mouth [place] 00 every Medical morning Branch and evening. KCL 20 mEq 2018-09 Yes [id number] 40meq Take 2 Univers tablet 2-09 tablets by ity of 00:00: mouth [place] 00 daily. Medical Branch atorvastati 2018-09 Yes [id number] 20mg Take 1 Univers n 20 mg 2-09 tablet by ity of tablet 00:00: mouth at [place] 00 bedtime. Medical Branch metoprolol 2018-09 Yes [id number] 50mg Take 1 Univers succinate 2-09 tablet by ity o f XL 50 mg 24 00:00: mouth 2 [place] hr tablet 00 (two) Medical times Branch daily. furosemide 2018-09 Yes [id number] 40mg Take 1 Univers 40 mg 2-09 tablet by ity of tablet 00:00: mouth [place] 00 every Medical morning Branch and evening. KCL 20 mEq 2018-09 Yes [id number] 40meq Take 2 Univers tablet 2-09 tablets by ity of 00:00: mouth [place] 00 daily. Medical Branch atorvastati 2018-09 Yes [id number] 20mg Take 1 Univers n 20 mg 2-09 tablet by ity of tablet 00:00: mouth at [place] 00 bedtime. Medical Branch metoprolol 2018-09 Yes [id number] 50mg Take 1 Univers succinate 2-09 tablet by ity o f XL 50 mg 24 00:00: mouth 2 [place] hr tablet 00 (two) Medical times Branch daily. furosemide 2018-09 Yes [id number] 40mg Take 1 Univers 40 mg 2-09 tablet by ity of tablet 00:00: mouth [place] 00 every Medical morning Branch and evening. KCL 20 mEq 2018-09 Yes [id number] 40meq Take 2 Univers tablet 2-09 tablets by ity of 00:00: mouth [place] 00 daily. Medical Branch KCL 20 mEq 2018-09 Yes [id number] 40meq Take 2 Univers tablet 2-09 tablets by ity of 00:00: mouth [place] 00 daily. Medical Branch KCL 20 mEq 2018-09 Yes [id number] 40meq Take 2 Univers tablet 2-09 tablets by ity of 00:00: mouth [place] 00 daily. Medical Branch KCL 20 mEq 2018-09 Yes [id number] 40meq Take 2 Univers tablet 2-09 tablets by ity of 00:00: mouth [place] 00 daily. Medical Branch KCL 20 mEq 2018-09 Yes [id number] 40meq Take 2 Univers tablet 2-09 tablets by ity of 00:00: mouth [place] 00 daily. Medical Branch KCL 20 mEq 2018-09 Yes [id number] 40meq Take 2 Univers tablet 2-09 tablets by ity of 00:00: mouth [place] 00 daily. Medical Branch KCL 20 mEq 2018-09 Yes [id number] 40meq Take 2 Univers tablet 2-09 tablets by ity of 00:00: mouth [place] 00 daily. Medical Branch KCL 20 mEq 2018-09 Yes [id number] 40meq Take 2 Univers tablet 2-09 tablets by ity of 00:00: mouth [place] 00 daily. Medical Branch KCL 20 mEq 2018-09 Yes [id number] 40meq Take 2 Univers tablet 2-09 tablets by ity of 00:00: mouth [place] 00 daily. Medical Branch KCL 20 mEq 2018-09 Yes [id number] 40meq Take 2 Univers tablet 2-09 tablets by ity of 00:00: mouth [place] 00 daily. Medical Branch KCL 20 mEq 2018-09 Yes [id number] 40meq Take 2 Univers tablet 2-09 tablets by ity of 00:00: mouth [place] 00 daily. Medical Branch KCL 20 mEq 2018-09 Yes [id number] 40meq Take 2 Univers tablet 2-09 tablets by ity of 00:00: mouth [place] 00 daily. Medical Branch KCL 20 mEq 2018-09 Yes [id number] 40meq Take 2 Univers tablet 2-09 tablets by ity of 00:00: mouth [place] 00 daily. Medical Branch KCL 20 mEq 2018-09 Yes [id number] 40meq Take 2 Univers tablet 2-09 tablets by ity of 00:00: mouth [place] 00 daily. Medical Branch KCL 20 mEq 2018-09 Yes [id number] 40meq Take 2 Univers tablet 2-09 tablets by ity of 00:00: mouth [place] 00 daily. Medical Branch KCL 20 mEq 2018-09 Yes [id number] 40meq Take 2 Univers tablet 2-09 tablets by ity of 00:00: mouth [place] 00 daily. Medical Branch KCL 20 mEq 2018-09 Yes [id number] 40meq Take 2 Univers tablet 2-09 tablets by ity of 00:00: mouth [place] 00 daily. Medical Branch KCL 20 mEq 2018-09 Yes [id number] 40meq Take 2 Univers tablet 2-09 tablets by ity of 00:00: mouth [place] 00 daily. Medical Branch KCL 20 mEq 2018-09 Yes [id number] 40meq Take 2 Univers tablet 2-09 tablets by ity of 00:00: mouth [place] 00 daily. Medical Branch KCL 20 mEq 2018-09- No [id number] 40meq Take 2 Univers tablet 2-09 -12 tablets by ity of 00:00: 00:00 mouth [place] 00 :00 daily. Medical Branch atorvastati 2018-09- No [id number] 20mg Take 1 Univers n 20 mg 10-28 tablet by ity of tablet 00:00: 00:00 mouth at [place] 00 :00 bedtime. Medical Branch metoprolol 2018-09- No [id number] 50mg Take 1 Univers succinate 10-28- tablet by ity of XL 50 mg 24 00:00: 00:00 mouth 2 [place] hr tablet 00 :00 (two) Medical times Branch daily. furosemide 2018-09- No [id number] 40mg Take 1 Univers 40 mg 10-28 [...] Until mL Discontinu ed, Routine ibuprofen Yes [id number] 600mg Take 1 U nivers 600 mg 5-31 tablet by ity of tablet 00:00: mouth [place] 00 every 8 Medical (eight) Branch hours as needed (PAIN). ibuprofen Yes [id number] 600mg Take 1 U nivers 600 mg 5-31 tablet by ity of tablet 00:00: mouth [place] 00 every 8 Medical (eight) Branch hours as needed (pain). ibuprofen 2019- No [id number] 600mg Take 1 Univers 600 mg 5-31 08-15 tablet by ity of tablet 00:00: 00:00 mouth [place] 00 :00 every 8 Medical (eight) Branch hours as needed (PAIN). ibuprofen 2018- No [id number] 600mg Take 1 Univers 600 mg 5-31 08-15 tablet by ity of tablet 00:00: 00:00 mouth [place] 00 :00 every 8 Medical (eight) Branch hours as needed (pain). magnesium Yes 400mg Take 1 Tab U nivers oxide 2-23 by mouth 3 ity of (MAG-OX 00:00: (three) [place] 400) 400 mg 00 times Medical tablet daily. Branch enalapril Yes [id number] 2.5mg Take 1 Tab Univers (VASOTEC) 2-23 [...] s tablet 00 Medical Branch furosemide Yes [id number] 40mg Take 1 Tab Univers (LASIX) 40 [...] Medical tablet daily. Branch enalapril 2018- No [id number] 2.5mg Take 1 Tab Univers (VASOTEC) -11 [...] 00 :00 Medical Branch furosemide 2019- No [id number] 40mg Take 1 Tab Univers (LASIX) 40 [...] by mouth ity of tablet 00:00: daily. [place] 00 Medical Branch ipratropium 2013-09 Yes .5mg [...] by mouth ity of tablet 00:00: daily. [place] [facility] ipratropium 2013-09 Yes .5mg Inhale [...] by mouth ity of tablet 00:00: daily. [place] [facility] ipratropium 2013-09 Yes .5mg Inhale [...] by mouth ity of tablet 00:00: daily. [place] [facility] ipratropium 2013-09 Yes .5mg Inhale [...] by mouth ity of tablet 00:00: daily. [place] [facility] ipratropium 2013-09 Yes .5mg Inhale [...] by mouth ity of tablet 00:00: daily. [place] [facility] ipratropium 2013-09 Yes .5mg Inhale [...] mouth ity of tablet 00:00: 00:00 daily. [place] 00 : Medical Branch ipratropium 2013-09- No [...] Immunizations Ordered Filled Immunization Date Status Comments [facility] e Immunization Name Name Pneumococcal 20 2022-12-12 Completed Universit y of Conjugate, PCV20 00:00:[address] [facility] dical (Prevnar 20) Branch Pneumococcal 20 2022-12-12 Completed Universit y of Conjugate, PCV20 00:00:[address] [facility] dical (Prevnar 20) Branch Pneumococcal 20 2022-12-12 Completed Universit y of Conjugate, PCV20 00:00:[address] [facility] dical (Prevnar 20) Branch Pneumococcal 20 2022-12-12 Completed Universit y of Conjugate, PCV20 00:00:[address] [facility] dical (Prevnar 20) Branch Pneumococcal 20 2022-12-12 Completed Universit y of Conjugate, PCV20 00:00:[address] [facility] dical (Prevnar 20) Branch Pneumococcal 20 2022-12-12 Completed Universit y of Conjugate, PCV20 00:00:[address] [facility] dical (Prevnar 20) Branch Pneumococcal 20 2022-12-12 Completed Universit y of Conjugate, PCV20 00:00:[address] [facility] dical (Prevnar 20) Branch Pneumococcal 20 2022-12-12 Completed Universit y of Conjugate, PCV20 00:00:[address] [facility] dical (Prevnar 20) Branch Pneumococcal 20 2022-12-12 Completed Universit y of Conjugate, PCV20 00:00:[address] [facility] dical (Prevnar 20) Branch Pneumococcal 20 2022-12-12 Completed Universit y of Conjugate, PCV20 00:00:[address] [facility] dical (Prevnar 20) Branch Pneumococcal 20 2022-12-12 Completed Universit y of Conjugate, PCV20 00:00:[address] [facility] dical (Prevnar 20) Branch Pneumococcal 20 2022-12-12 Completed Universit y of Conjugate, PCV20 00:00:[address] [facility] dical (Prevnar 20) Branch Pneumococcal 20 2022-12-12 Completed Universit y of Conjugate, PCV20 00:00:[address] [facility] dical (Prevnar 20) Branch Pneumococcal 20 2022-12-12 [...] Universit y of Conjugate, PCV20 00:00:00 [place] dical (Prevnar 20) Branch Pneumococcal 20 2022-12-12 Completed Universit y of Conjugate, PCV20 00:00:00 [place] [facility] dical (Prevnar 20) Branch Pneumococcal 20 2022-12-12 Completed Universit y of Conjugate, PCV20 00:00:[address] [facility] dical (Prevnar 20) Branch Pneumococcal 20 2022-12-12 Completed Universit y of Conjugate, PCV20 00:00:[address] [facility] dical (Prevnar 20) Branch Pneumococcal 20 2022-12-12 Completed Universit y of Conjugate, PCV20 00:00:[address] [facility] dical (Prevnar 20) Branch Pneumococcal 20 2022-12-12 Completed Universit y of Conjugate, PCV20 00:00:[address] [facility] dical (Prevnar 20) Branch SARS-COV-2 COVID-19 2020-11-23 [...] Unive rsity of MODERNA VACCINE 00:00:00 [place] [facility] ical Branch SARS-COV-2 COVID-19 2020-11-23 Completed Unive rsity of MODERNA VACCINE 00:00:00 [place] [facility] ical Branch SARS-COV-2 COVID-19 2020-11-23 Completed Unive rsity of MODERNA VACCINE 00:00:00 [place] [facility] ical Branch SARS-COV-2 COVID-19 2020-11-23 Completed Unive rsity of MODERNA VACCINE 00:00:00 [place] Med ical Branch SARS-COV-2 COVID-19 2020-11-23 Completed Unive rsity of MODERNA VACCINE 00:00:00 [place] [facility] ical Branch SARS-COV-2 COVID-19 2020-11-23 Completed Unive rsity of MODERNA VACCINE 00:00:00 [place] [facility] ical Branch SARS-COV-2 COVID-19 2020-11-23 Completed Unive rsity of MODERNA VACCINE 00:00:00 [place] [facility] ical Branch SARS-COV-2 COVID-19 2020-11-23 Completed Unive [...] Unive rsity of MODERNA 12+ YRS 00:00:00 [facility] ical VACCINE Branch Td 2019-02-16 Completed University of 00:00:00 [facility] TD, NOS 2019-02-16 Completed University of 00:00:00 [place] [facility] TD, NOS 2019-02-16 Completed University of 00:00:00 [place] [facility] TD, NOS 2019-02-16 Completed University of 00:00:00 [facility] Branch TD, NOS 2019-02-16 Completed University of 00:00:00 [facility] Branch TD, NOS 2019-02-16 Completed University of 00:00:00 [place] [facility] Td 2019-02-16 Completed University of 00:00:00 [facility] Branch TD, NOS 2019-02-16 Completed University of 00:00:00 [facility] Branch TD, NOS 2019-02-16 Completed University of 00:00:00 [place] [facility] TD, NOS 2019-02-16 Completed University [...] TD, NOS 2019-02-16 Completed University of 00:00:00 [facility] TD, NOS 2019-02-16 Completed University of 00:00:00 [facility] TD, NOS 2019-02-16 Completed University of 00:00:00 [facility] Pneumococcal 2014-09-05 Completed University o f Polysaccharide, 00:00:00 [place] Med ical PPSV23 (PNEUMOVAX) Branch Influenza Virus 2014-09-05 Completed Universit y of Vaccine Quad IM 3+ 00:00:00 [facility] Pneumococcal 2014-09-05 Completed University o f Polysaccharide, 00:00:00 [place] Med ical PPSV23 (PNEUMOVAX) Branch Influenza Virus 2014-09-05 Completed Universit y of Vaccine Quad IM 3+ 00:00:00 [facility] Pneumococcal 2014-09-05 Completed University o f Polysaccharide, 00:00:00 [place] Med ical PPSV23 (PNEUMOVAX) Branch Influenza Virus 2014-09-05 Completed Universit y of Vaccine Quad IM 3+ 00:00:00 [facility] Pneumococcal 2014-09-05 Completed University o f Polysaccharide, 00:00:00 [place] Med ical PPSV23 (PNEUMOVAX) Branch Influenza Virus 2014-09-05 Completed Universit y of Vaccine Quad IM 3+ 00:00:00 [facility] Pneumococcal 2014-09-05 Completed University o f Polysaccharide, 00:00:00 [place] Med ical PPSV23 (PNEUMOVAX) Branch Influenza Virus 2014-09-05 Completed Universit y of Vaccine Quad IM 3+ 00:00:00 [facility] Pneumococcal 2014-09-05 Completed University o f Polysaccharide, 00:00:00 [place] Med ical PPSV23 (PNEUMOVAX) Branch Influenza Virus 2014-09-05 Completed Universit y of Vaccine Quad IM 3+ 00:00:00 [facility] Pneumococcal 2014-09-05 Completed University o f Polysaccharide, 00:00:00 [place] Med ical PPSV23 (PNEUMOVAX) Branch Influenza Virus 2014-09-05 Completed Universit y of Vaccine Quad IM 3+ 00:00:00 [facility] Pneumococcal 2014-09-05 Completed University o f Polysaccharide, 00:00:00 [place] Med ical PPSV23 (PNEUMOVAX) Branch Influenza Virus 2014-09-05 Completed Universit y of Vaccine Quad IM 3+ 00:00:00 [facility] Pneumococcal 2014-09-05 Completed University o f Polysaccharide, 00:00:00 [place] Med ical PPSV23 (PNEUMOVAX) Branch Influenza Virus 2014-09-05 Completed Universit y of Vaccine Quad IM 3+ 00:00:00 [facility] Pneumococcal 2014-09-05 Completed University o f Polysaccharide, 00:00:00 [place] Med ical PPSV23 (PNEUMOVAX) Branch Influenza Virus 2014-09-05 Completed Universit y of Vaccine Quad IM 3+ 00:00:00 [facility] Pneumococcal 2014-09-05 Completed University o f Polysaccharide, 00:00:00 [place] Med ical PPSV23 (PNEUMOVAX) Branch Influenza Virus 2014-09-05 Completed Universit y of Vaccine Quad IM 3+ 00:00:00 [facility] Pneumococcal 2014-09-05 Completed University o f Polysaccharide, 00:00:00 [place] Med ical PPSV23 (PNEUMOVAX) Branch Influenza Virus 2014-09-05 Completed Universit y of Vaccine Quad IM 3+ 00:00:00 [facility] Pneumococcal 2014-09-05 Completed University o f Polysaccharide, 00:00:00 [place] Med ical PPSV23 (PNEUMOVAX) Branch Influenza Virus 2014-09-05 Completed Universit y of Vaccine Quad IM 3+ 00:00:00 [facility] Influenza Virus 2014-09-05 Completed Universit y of Vaccine Quad IM 3+ 00:00:00 [facility] Pneumococcal 2014-09-05 Completed University o f Polysaccharide, 00:00:00 [place] Med ical PPSV23 (PNEUMOVAX) Branch Pneumococcal 2014-09-05 Completed University o f Polysaccharide, 00:00:00 [place] Med ical PPSV23 (PNEUMOVAX) Branch Influenza Virus 2014-09-05 Completed Universit y of Vaccine Quad IM 3+ 00:00:00 [facility] Pneumococcal 2014-09-05 Completed [facility] Polysaccharide, 00:00:00 [place] [facility] PPSV23 (PNEUMOVAX) [facility] Influenza Virus 2014-09-05 Completed [facility] Vaccine Quad IM 3+ 00:00:00 [facility] Pneumococcal 2014-09-05 Completed [facility] f Polysaccharide, 00:00:00 [place] [facility] PPSV23 (PNEUMOVAX) Branch Influenza Virus 2014-09-05 Completed [facility]it [facility] of Vaccine Quad IM 3+ 00:00:00 [facility] Pneumococcal 2014-09-05 Completed [facility] f Polysaccharide, 00:00:00 [place] [facility] PPSV23 (PNEUMOVAX) Branch Influenza Virus 2014-09-05 Completed [facility]it [facility] of Vaccine Quad IM 3+ 00:00:00 [facility] Pneumococcal 2014-09-05 Completed [facility] f Polysaccharide, 00:00:00 [place] [facility] PPSV23 (PNEUMOVAX) Branch Influenza Virus 2014-09-05 Completed [facility] of Vaccine Quad IM 3+ 00:00:00 [facility] Pneumococcal 2014-09-05 Completed [facility] f Polysaccharide, 00:00:00 [place] [facility] PPSV23 (PNEUMOVAX) Branch Influenza Virus 2014-09-05 Completed [facility] of Vaccine Quad IM 3+ 00:00:00 [facility] Pneumococcal 2014-09-05 Completed [facility] Polysaccharide, 00:00:00 [place] [facility] PPSV23 (PNEUMOVAX) [facility] Influenza Virus 2014-09-05 Completed [facility] of Vaccine Quad IM 3+ 00:00:00 [facility] Pneumococcal 2014-09-05 Completed [facility] Polysaccharide, 00:00:00 [place] [facility] PPSV23 (PNEUMOVAX) Branch Influenza Virus 2014-09-05 Completed [facility] Vaccine Quad IM 3+ 00:00:00 [facility] Pneumococcal 2014-09-05 Completed [facility] f Polysaccharide, 00:00:00 [place] [facility] PPSV23 (PNEUMOVAX) Branch Influenza Virus 2014-09-05 Completed [facility] of Vaccine Quad IM 3+ 00:00:00 [facility] Pneumococcal 2014-09-05 Completed [facility] Polysaccharide, 00:00:00 [place] [facility] PPSV23 (PNEUMOVAX) Branch Influenza Virus 2014-09-05 Completed [facility] of Vaccine Quad IM 3+ 00:00:00 [facility] Pneumococcal 2014-09-05 Completed [facility] f Polysaccharide, 00:00:00 [place] [facility] PPSV23 (PNEUMOVAX) Branch Influenza Virus 2014-09-05 Completed [facility] of Vaccine Quad IM 3+ 00:00:00 [facility] Pneumococcal 2014-09-05 Completed [facility] Polysaccharide, 00:00:00 [place] [facility] PPSV23 (PNEUMOVAX) Branch Influenza Virus 2014-09-05 Completed [facility] Vaccine Quad IM 3+ 00:00:00 [facility] Pneumococcal 2014-09-05 Completed [facility] Polysaccharide, 00:00:00 [place] [facility] PPSV23 (PNEUMOVAX) Branch Influenza Virus 2014-09-05 Completed [facility] Vaccine Quad IM 3+ 00:00:00 [facility] Pneumococcal 2014-09-05 Completed [facility] f Polysaccharide, 00:00:00 [place] [facility] PPSV23 (PNEUMOVAX) Branch Influenza Virus 2014-09-05 Completed [facility] Vaccine Quad IM 3+ 00:00:00 [facility] Pneumococcal 2014-09-05 Completed [facility] f Polysaccharide, 00:00:00 [place] [facility] PPSV23 (PNEUMOVAX) Branch Influenza Virus 2014-09-05 Completed [facility] of Vaccine Quad IM 3+ 00:00:00 [facility] Pneumococcal 2014-09-05 Completed [facility] f Polysaccharide, 00:00:00 [place] [facility] PPSV23 (PNEUMOVAX) Branch Influenza Virus 2014-09-05 Completed [facility] of Vaccine Quad IM 3+ 00:00:00 [facility] Pneumococcal 2014-09-05 Completed [facility] f Polysaccharide, 00:00:00 [place] [facility] PPSV23 (PNEUMOVAX) Branch Influenza Virus 2014-09-05 Completed [facility] of Vaccine Quad IM 3+ 00:00:00 [facility] Influenza Virus 2014-09-05 Completed [facility] Vaccine Quad IM 3+ 00:00:00 [facility] Pneumococcal 2014-09-05 Completed [facility] Polysaccharide, 00:00:00 [place] [facility] PPSV23 (PNEUMOVAX) Branch Pneumococcal 2014-09-05 Completed [facility] f Polysaccharide, 00:00:00 [place] [facility] PPSV23 (PNEUMOVAX) Branch Influenza Virus 2014-09-05 Completed [facility] Vaccine Quad IM 3+ 00:00:00 [facility] Pneumococcal 2014-09-05 Completed [facility] f Polysaccharide, 00:00:00 [place] [facility] PPSV23 (PNEUMOVAX) Branch Influenza Virus 2014-09-05 Completed [facility] Vaccine Quad IM 3+ 00:00:00 [facility] Pneumococcal 2014-09-05 Completed [facility] f Polysaccharide, 00:00:00 [place] [facility] PPSV23 (PNEUMOVAX) Branch Influenza Virus 2014-09-05 Completed [facility] of Vaccine Quad IM 3+ 00:00:00 [facility] Pneumococcal 2014-09-05 Completed [facility] f Polysaccharide, 00:00:00 [place] [facility] PPSV23 (PNEUMOVAX) Branch Influenza Virus 2014-09-05 Completed [facility] of Vaccine Quad IM 3+ 00:00:00 [facility] Pneumococcal 2014-09-05 Completed [facility] f Polysaccharide, 00:00:00 [place] [facility] PPSV23 (PNEUMOVAX) Branch Influenza Virus 2014-09-05 Completed [facility] Vaccine Quad IM 3+ 00:00:00 [facility] Pneumococcal 2014-09-05 Completed [facility] f Polysaccharide, 00:00:00 [place] [facility] PPSV23 (PNEUMOVAX) Branch Influenza Virus 2014-09-05 Completed [facility] Vaccine Quad IM 3+ 00:00:00 [facility] Pneumococcal 2014-09-05 Completed [facility] f Polysaccharide, 00:00:00 [place] [facility] PPSV23 (PNEUMOVAX) Branch Influenza Virus 2014-09-05 Completed [facility] Vaccine Quad IM 3+ 00:00:00 [facility] Pneumococcal 2014-09-05 Completed [facility] f Polysaccharide, 00:00:00 [place] [facility] PPSV23 (PNEUMOVAX) Branch Influenza Virus 2014-09-05 Completed [facility] of Vaccine Quad IM 3+ 00:00:00 [facility] Pneumococcal 2014-09-05 Completed [facility] Polysaccharide, 00:00:00 [place] [facility] PPSV23 (PNEUMOVAX) Branch Influenza Virus 2014-09-05 Completed [facility] of Vaccine Quad IM 3+ 00:00:00 [facility] Pneumococcal 2014-09-05 Completed [facility] f Polysaccharide, 00:00:00 [place] [facility] PPSV23 (PNEUMOVAX) Branch Influenza Virus 2014-09-05 Completed [facility] Vaccine Quad IM 3+ 00:00:00 [facility] Pneumococcal 2014-09-05 Completed [facility] Polysaccharide, 00:00:00 [place] [facility] PPSV23 (PNEUMOVAX) Branch Influenza Virus 2014-09-05 Completed [facility] Vaccine Quad IM 3+ 00:00:00 [facility] Pneumococcal 2014-09-05 Completed [facility] o f Polysaccharide, 00:00:00 [place] [facility] PPSV23 (PNEUMOVAX) Branch Influenza Virus 2014-09-05 Completed [facility] of Vaccine Quad IM 3+ 00:00:00 [facility] Pneumococcal 2014-09-05 Completed [facility] f Polysaccharide, 00:00:00 [place] [facility] PPSV23 (PNEUMOVAX) Branch Influenza Virus 2014-09-05 Completed [facility] of Vaccine Quad IM 3+ 00:00:00 [facility] Pneumococcal 2014-09-05 Completed [facility] f Polysaccharide, 00:00:00 [place] [facility] PPSV23 (PNEUMOVAX) Branch Influenza Virus 2014-09-05 Completed [facility] of Vaccine Quad IM 3+ 00:00:00 [facility] Pneumococcal 2014-09-05 Completed [facility] f Polysaccharide, 00:00:00 [place] [facility] PPSV23 (PNEUMOVAX) Branch Influenza Virus 2014-09-05 Completed [facility] of Vaccine Quad IM 3+ 00:00:00 [facility] Pneumococcal 2014-09-05 Completed [facility] f Polysaccharide, 00:00:00 [place] [facility] PPSV23 (PNEUMOVAX) Branch Influenza Virus 2014-09-05 Completed [facility] of Vaccine Quad IM 3+ 00:00:00 [facility] Pneumococcal 2014-09-05 Completed [facility] f Polysaccharide, 00:00:00 [place] [facility] PPSV23 (PNEUMOVAX) Branch Influenza Virus 2014-09-05 Completed [facility] of Vaccine Quad IM 3+ 00:00:00 [facility] Pneumococcal 2014-09-05 Completed [facility] f Polysaccharide, 00:00:00 [place] [facility] PPSV23 (PNEUMOVAX) Branch Influenza Virus 2014-09-05 Completed [facility] of Vaccine Quad IM 3+ 00:00:00 [facility] Pneumococcal 2014-09-05 Completed [facility] f Polysaccharide, 00:00:00 [place] [facility] PPSV23 (PNEUMOVAX) Branch Influenza Virus 2014-09-05 Completed [facility] of Vaccine Quad IM 3+ 00:00:00 [facility] Pneumococcal 2014-09-05 Completed [facility] f Polysaccharide, 00:00:00 [place] [facility] PPSV23 (PNEUMOVAX) Branch Influenza Virus 2014-09-05 Completed [facility] of Vaccine Quad IM 3+ 00:00:00 [facility] Pneumococcal 2014-09-05 Completed [facility] o f Polysaccharide, 00:00:00 [place] [facility] PPSV23 (PNEUMOVAX) Branch Influenza Virus 2014-09-05 Completed [facility] of Vaccine Quad IM 3+ 00:00:00 [facility] Pneumococcal 2014-09-05 Completed [facility] o f Polysaccharide, 00:00:00 [place] [facility] PPSV23 (PNEUMOVAX) Branch Influenza Virus 2014-09-05 Completed [facility] of Vaccine Quad IM 3+ 00:00:00 [facility] Pneumococcal 2014-09-05 Completed [facility] o f Polysaccharide, 00:00:00 [place] [facility] PPSV23 (PNEUMOVAX) Branch Influenza Virus 2014-09-05 Completed [facility] of Vaccine Quad IM 3+ 00:00:00 [facility] Pneumococcal 2014-09-05 Completed [facility] o f Polysaccharide, 00:00:00 [place] [facility] PPSV23 (PNEUMOVAX) Branch Influenza Virus 2014-09-05 Completed [facility] of Vaccine Quad IM 3+ 00:00:00 [facility] Pneumococcal 2014-09-05 Completed [facility] o f Polysaccharide, 00:00:00 [place] [facility] PPSV23 (PNEUMOVAX) Branch Influenza Virus 2014-09-05 Completed [facility]it [facility] of Vaccine Quad IM 3+ 00:00:00 [facility] Pneumococcal 2014-09-05 Completed [facility] o f Polysaccharide, 00:00:00 [place] [facility] PPSV23 (PNEUMOVAX) Branch Influenza Virus 2014-09-05 Completed [facility] of Vaccine Quad IM 3+ 00:00:00 [facility] Pneumococcal 2014-09-05 Completed [facility] o f Polysaccharide, 00:00:00 [place] [facility] PPSV23 (PNEUMOVAX) Branch Influenza Virus 2014-09-05 Completed [facility]it [facility] of Vaccine Quad IM 3+ 00:00:00 [facility] Pneumococcal 2014-09-05 Completed [facility] o f Polysaccharide, 00:00:00 [place] [facility] PPSV23 (PNEUMOVAX) Branch Influenza Virus 2014-09-05 Completed [facility] of Vaccine Quad IM 3+ 00:00:00 [facility] Pneumococcal 2014-09-05 Completed [facility] o f Polysaccharide, 00:00:00 [place] [facility] PPSV23 (PNEUMOVAX) Branch Influenza Virus 2014-09-05 Completed [facility] of Vaccine Quad IM 3+ 00:00:00 [facility] Pneumococcal 2014-09-05 Completed [facility] o f Polysaccharide, 00:00:00 [place] [facility] PPSV23 (PNEUMOVAX) Branch Influenza Virus 2014-09-05 Completed [facility]it y of Vaccine Quad IM 3+ 00:00:00 [facility] Pneumococcal 2014-09-05 Completed [facility] o f Polysaccharide, 00:00:00 [place] [facility] PPSV23 (PNEUMOVAX) Branch Influenza Virus 2014-09-05 Completed [facility] y of Vaccine Quad IM 3+ 00:00:00 [facility] Influenza Virus 2014-09-05 Completed [facility]it y of Vaccine Quad IM 3+ 00:00:00 [facility] Pneumococcal 2014-09-05 Completed [facility] o f Polysaccharide, 00:00:00 [place] [facility] PPSV23 (PNEUMOVAX) Branch Pneumococcal 2014-09-05 Completed [facility] o f Polysaccharide, 00:00:00 [place] [facility] PPSV23 (PNEUMOVAX) Branch Influenza Virus 2014-09-05 Completed [facility]it y of Vaccine Quad IM 3+ 00:00:00 [facility] Pneumococcal 2014-09-05 Completed [facility] o f Polysaccharide, 00:00:00 [place] [facility] PPSV23 (PNEUMOVAX) Branch Influenza Virus 2014-09-05 Completed [facility]it y of Vaccine Quad IM 3+ 00:00:00 [facility] Pneumococcal 2014-09-05 Completed [facility] o f Polysaccharide, 00:00:00 [place] [facility] PPSV23 (PNEUMOVAX) Branch Influenza Virus 2014-09-05 Completed [facility]it y of Vaccine Quad IM 3+ 00:00:00 [facility] Pneumococcal 2014-09-05 Completed [facility] o f Polysaccharide, 00:00:00 [place] [facility] PPSV23 (PNEUMOVAX) Branch Influenza Virus 2014-09-05 Completed [facility]it y of Vaccine Quad IM 3+ 00:00:00 [facility] Vital Signs Vital Name Observation Time Observation Value Comments Source Systolic blood 2023-03-01 143 mm[Hg] University of pressure 20:27:00 [facility] Diastolic blood 2023-03-01 87 mm[Hg] University o f pressure 20:27:00 [facility] Heart rate 2023-03-01 99 /min University of 20:27:00 [facility] Body height 2023-03-01 177.8 cm University 20:27:00 [facility] Body weight 2023-03-01 57.153 kg University of 20:27:00 [facility] BMI 2023-03-01 18.08 kg/m2 University of 20:27:00 [facility] Oxygen saturation 2023-03-01 99 /min University of in Arterial blood 20:27:00 [facility] by Pulse oximetry Branch Systolic blood 2023-02-18 144 mm[Hg] University of pressure 16:17:00 [facility] Diastolic blood 2023-02-18 68 mm[Hg] University o f pressure 16:17:00 [facility] Heart rate 2023-02-18 55 /min University of 16:17:00 [facility] Body temperature 2023-02-18 36.06 Tia University of 16:17:00 [facility] Respiratory rate 2023-02-18 18 /min University of 16:17:00 [facility] Oxygen saturation 2023-02-18 100 /min University of in Arterial blood 16:17:00 [facility] by Pulse oximetry Branch Body weight 2023-02-18 58.968 kg University of 07:50:00 [facility] BMI 2023-02-18 18.65 kg/m2 University of 07:50:00 [facility] Body height 2023-02-16 177.8 cm University of 00:31:00 [facility] Oxygen saturation 2023-02-07 99 /min University of in Arterial blood 19:29:00 [facility] by Pulse oximetry Branch Systolic blood 2023-02-07 103 mm[Hg] University of pressure 19:27:00 [facility] Diastolic blood 2023-02-07 75 mm[Hg] University o f pressure 19:27:00 [facility] Heart rate 2023-02-07 104 /min University of 19:27:00 [facility] Body temperature 2023-02-07 36.39 Tia University of 19:27:00 [facility] Respiratory rate 2023-02-07 22 /min University of 19:27:00 [facility] Body weight 2023-02-07 72.576 kg University of 19:27:00 [facility] BMI 2023-02-07 22.96 kg/m2 University of 19:27:00 [facility] Heart rate 2023-02-05 85 /min University of 20:17:00 [facility] Respiratory rate 2023-02-05 18 /min University of 20:17:00 [facility] Oxygen saturation 2023-02-05 100 /min University of in Arterial blood 20:17:00 [facility] by Pulse oximetry Branch Systolic blood 2023-02-05 98 mm[Hg] University of pressure 19:53:35 [facility] Diastolic blood 2023-02-05 71 mm[Hg] University o f pressure 19:53:35 [facility] Body temperature 2023-02-05 36.5 Tia University of 19:51:00 [facility] Body height 2023-02-05 177.8 cm University of 19:51:00 [facility] Body weight 2023-02-05 72.576 kg University of 19:51:00 [facility] BMI 2023-02-05 22.96 kg/m2 University of 19:51:00 [facility] Heart rate 2023-02-04 76 /min University of 20:31:00 [facility] Respiratory rate 2023-02-04 18 /min University of 20:31:00 [facility] Oxygen saturation 2023-02-04 97 /min University of in Arterial blood 20:31:00 [facility] by Pulse oximetry Branch Systolic blood 2023-02-04 126 mm[Hg] University of pressure 20:15:00 [facility] Diastolic blood 2023-02-04 98 mm[Hg] University o f pressure 20:15:00 [facility] Body temperature 2023-02-04 36.83 Tia University of 20:15:00 [facility] Body weight 2023-02-04 72.576 kg University of 20:15:00 [facility] BMI 2023-02-04 22.96 kg/m2 University of 20:15:00 [facility] Systolic blood 2023-02-03 100 mm[Hg] University of pressure 23:00:00 [facility] Diastolic blood 2023-02-03 65 mm[Hg] University o f pressure 23:00:00 [facility] Heart rate 2023-02-03 115 /min University of 23:00:00 [facility] Respiratory rate 2023-02-03 20 /min University of 23:00:00 [facility] Oxygen saturation 2023-02-03 97 /min University of in Arterial blood 23:00:00 [facility] by Pulse oximetry Branch Body temperature 2023-02-03 36.72 Tia University of 22:44:00 [facility] Body weight 2023-02-03 72.576 kg University of 22:44:00 [facility] BMI 2023-02-03 22.96 kg/m2 University of 22:44:00 [facility] Systolic blood 2023-02-03 128 mm[Hg] University of pressure 20:02:00 [facility] Diastolic blood 2023-02-03 81 mm[Hg] University o f pressure 20:02:00 [facility] Heart rate 2023-02-03 88 /min University of 20:02:00 [facility] Respiratory rate 2023-02-03 25 /min University of 20:02:00 [facility] Oxygen saturation 2023-02-03 94 /min University of in Arterial blood 20:02:00 [facility] by Pulse oximetry Branch Body temperature 2023-02-03 36.61 Tia University of 18:18:00 [facility] Body weight 2023-02-03 72.576 kg University of 17:41:00 [facility] BMI 2023-02-03 22.96 kg/m2 University of 17:41:00 [facility] Heart rate 2023-02-02 107 /min University of 22:49:00 [facility] Respiratory rate 2023-02-02 20 /min University of 22:49:00 [facility] Oxygen saturation 2023-02-02 94 /min University of in Arterial blood 22:49:00 [facility] by Pulse oximetry Branch Systolic blood 2023-02-02 102 mm[Hg] University of pressure 22:32:00 [facility] Diastolic blood 2023-02-02 74 mm[Hg] University o f pressure 22:32:00 [facility] Body temperature 2023-02-02 35.83 Tia University of 21:58:32 [facility] Body height 2023-02-02 177.8 cm University of 21:54:00 [facility] Body weight 2023-02-02 72.576 kg University of 21:54:00 [facility] BMI 2023-02-02 22.96 kg/m2 University of 21:54:00 [facility] Systolic blood 2023-01-31 140 mm[Hg] University of pressure 21:00:00 [facility] Diastolic blood 2023-01-31 72 mm[Hg] University o f pressure 21:00:00 [facility] Heart rate 2023-01-31 89 /min University of 21:00:00 [facility] Respiratory rate 2023-01-31 20 /min University of 21:00:00 [facility] Oxygen saturation 2023-01-31 97 /min University of in Arterial blood 21:00:00 [facility] by Pulse oximetry Branch Body temperature 2023-01-31 36.72 Tia University of 18:50:00 [facility] Body weight 2023-01-31 72.576 kg University of 18:50:00 [facility] BMI 2023-01-31 22.96 kg/m2 University of 18:50:00 [facility] Systolic blood 2023-01-31 130 mm[Hg] University of pressure 16:09:00 [facility] Diastolic blood 2023-01-31 72 mm[Hg] University o f pressure 16:09:00 [facility] Heart rate 2023-01-31 99 /min University of 16:09:00 [facility] Body temperature 2023-01-31 36.39 Tia University of 16:09:00 [facility] Respiratory rate 2023-01-31 18 /min University of 16:09:00 [facility] Body height 2023-01-31 177.8 cm University of 16:09:00 [facility] Body weight 2023-01-31 72.576 kg University of 16:09:00 [facility] BMI 2023-01-31 22.96 kg/m2 University of 16:09:00 [facility] Oxygen saturation 2023-01-31 97 /min University of in Arterial blood 16:09:00 [facility] by Pulse oximetry Branch Systolic blood 2023-01-31 134 mm[Hg] University of pressure 14:50:00 [facility] Diastolic blood 2023-01-31 72 mm[Hg] University o f pressure 14:50:00 [facility] Heart rate 2023-01-31 85 /min University of 14:50:00 [facility] Body temperature 2023-01-31 36.39 Tia University of 14:50:00 [facility] Respiratory rate 2023-01-31 20 /min University of 14:50:00 [facility] Body weight 2023-01-31 72.576 kg University of 14:50:00 [facility] BMI 2023-01-31 22.96 kg/m2 University of 14:50:00 [facility] Oxygen saturation 2023-01-31 100 /min University of in Arterial blood 14:50:00 [facility] by Pulse oximetry Branch Respiratory rate 2023-01-29 20 /min University of 13:40:00 [facility] Oxygen saturation 2023-01-29 100 /min University of in Arterial blood 13:40:00 [facility] by Pulse oximetry Branch Systolic blood 2023-01-29 123 mm[Hg] University of pressure 13:06:00 [facility] Diastolic blood 2023-01-29 76 mm[Hg] University o f pressure 13:06:00 [facility] Heart rate 2023-01-29 97 /min University of 13:06:00 [facility] Body temperature 2023-01-29 36.61 Tia University of 13:06:00 [facility] Body height 2023-01-29 177.8 cm University of 13:06:00 [facility] Body weight 2023-01-29 72.576 kg University of 13:06:00 [facility] BMI 2023-01-29 22.96 kg/m2 University of 13:06:00 [facility] Systolic blood 2023-01-27 115 mm[Hg] University of pressure 11:47:00 [facility] Diastolic blood 2023-01-27 75 mm[Hg] University o f pressure 11:47:00 [facility] Heart rate 2023-01-27 100 /min University of 11:47:00 [facility] Body temperature 2023-01-27 35.78 Tia University of 11:47:00 [facility] Respiratory rate 2023-01-27 28 /min University of 11:47:00 [facility] Oxygen saturation 2023-01-27 99 /min University of in Arterial blood 11:47:00 [facility] by Pulse oximetry Branch Body height 2023-01-27 177.8 cm University of 09:57:00 [facility] Body weight 2023-01-27 72.576 kg University of 09:57:00 [facility] BMI 2023-01-27 22.96 kg/m2 University of 09:57:00 [facility] Heart rate 2023-01-24 88 /min University of 20:55:00 [facility] Oxygen saturation 2023-01-24 93 /min University of in Arterial blood 20:55:00 [facility] lucho by Pulse oximetry Branch Respiratory rate 2023-01-24 22 /min University of 20:52:00 [facility] Systolic blood 2023-01-24 128 mm[Hg] University of pressure 20:30:00 [facility] Diastolic blood 2023-01-24 69 mm[Hg] University o f pressure 20:30:00 [facility] Body temperature 2023-01-24 36.67 Tia University of 17:24:00 [facility] Body height 2023-01-24 177.8 cm University of 17:24:00 [facility] Body weight 2023-01-24 72.576 kg University of 17:24:00 [facility] BMI 2023-01-24 22.96 kg/m2 University of 17:24:00 [facility] Systolic blood 2023-01-24 129 mm[Hg] University of pressure 01:00:00 [facility] Diastolic blood 2023-01-24 76 mm[Hg] University o f pressure 01:00:00 [facility] Heart rate 2023-01-24 77 /min University of 01:00:00 [facility] Respiratory rate 2023-01-24 18 /min University of 01:00:00 [facility] Oxygen saturation 2023-01-24 99 /min University of in Arterial blood 01:00:00 [facility] by Pulse oximetry Branch Body temperature 2023-01-24 35.61 Tia warm blankets University of 00:02:00 applied [facility] Body weight 2023-01-24 58.968 kg University of 00:02:00 [facility] BMI 2023-01-24 18.65 kg/m2 University of 00:02:00 [facility] Heart rate 2023-01-22 93 /min University of 23:46:00 [facility] Respiratory rate 2023-01-22 20 /min University of 23:46:00 [facility] Oxygen saturation 2023-01-22 100 /min University of in Arterial blood 23:46:00 [place] [facility] Pulse oximetry [facility] Systolic blood 2023-01-22 146 mm[Hg] University of pressure 23:21:00 [facility] Diastolic blood 2023-01-22 93 mm[Hg] University o f pressure 23:21:00 [facility] Body temperature 2023-01-22 36.72 Tia University of 23:21:00 [facility] Body weight 2023-01-22 58.968 kg University of 23:21:00 [facility] BMI 2023-01-22 18.65 kg/m2 University of 23:21:00 [facility] Heart rate 2023-01-21 84 /min University of 21:57:00 [facility] Respiratory rate 2023-01-21 18 /min University of 21:57:00 [facility] Oxygen saturation 2023-01-21 97 /min University of in Arterial blood 21:57:00 [facility] by Pulse oximetry Branch Systolic blood 2023-01-21 103 mm[Hg] University of pressure 21:00:00 [facility] Diastolic blood 2023-01-21 61 mm[Hg] University o f pressure 21:00:00 [facility] Body temperature 2023-01-21 36.56 Tia University of 19:24:00 [facility] Body weight 2023-01-21 58.968 kg University of 19:24:00 [facility] BMI 2023-01-21 18.65 kg/m2 University of 19:24:00 [facility] Systolic blood 2023-01-19 111 mm[Hg] University of pressure 21:00:00 [facility] Diastolic blood 2023-01-19 64 mm[Hg] University o f pressure 21:00:00 [facility] Heart rate 2023-01-19 85 /min University of 21:00:00 [facility] Body temperature 2023-01-19 36.56 Tia University of 21:00:00 [facility] Respiratory rate 2023-01-19 17 /min University of 21:00:00 [facility] Oxygen saturation 2023-01-19 98 /min University of in Arterial blood 21:00:00 [facility] by Pulse oximetry Branch Body height 2023-01-19 177.8 cm University of 06:22:00 [facility] Body weight 2023-01-19 58.968 kg University of 06:22:00 [facility] BMI 2023-01-19 18.65 kg/m2 University of 06:22:00 [facility] Systolic blood 2023-01-17 116 mm[Hg] University of pressure 12:05:00 [facility] Diastolic blood 2023-01-17 69 mm[Hg] University o f pressure 12:05:00 [facility] Heart rate 2023-01-17 100 /min University of 12:05:00 [facility] Respiratory rate 2023-01-17 24 /min University of 12:05:00 [facility] Oxygen saturation 2023-01-17 93 /min University of in Arterial blood 12:05:00 [facility] by Pulse oximetry Branch Body temperature 2023-01-17 35.39 Tia University of 10:59:00 [place] [facility] [place] Body height 2023-01-17 177.8 cm University of 10:59:00 [facility] Body weight 2023-01-17 58.968 kg University of 10:59:00 [facility] BMI 2023-01-17 18.65 kg/m2 University of 10:59:00 [facility] Systolic blood 2023-01-07 122 mm[Hg] University of pressure 19:38:00 [facility] Diastolic blood 2023-01-07 86 mm[Hg] University o f pressure 19:38:00 [facility] Heart rate 2023-01-07 110 /min University of 19:38:00 [facility] Respiratory rate 2023-01-07 16 /min University of 19:38:00 [facility] Body height 2023-01-07 177.8 cm University of 19:38:00 [facility] Body weight 2023-01-07 59.966 kg University of 19:38:00 [facility] BMI 2023-01-07 18.97 kg/m2 University of 19:38:00 [facility] Systolic blood 2022-12-26 118 mm[Hg] University of pressure 18:00:00 [facility] Diastolic blood 2022-12-26 79 mm[Hg] University o f pressure 18:00:00 [facility] Heart rate 2022-12-26 93 /min University of 18:00:00 [facility] Respiratory rate 2022-12-26 20 /min University of 18:00:00 [facility] Oxygen saturation 2022-12-26 95 /min University of in Arterial blood 18:00:00 [facility] by Pulse oximetry Branch Body temperature 2022-12-26 36.11 Tia University of 15:49:00 [facility] Body height 2022-12-26 177.8 cm University of 15:49:00 [facility] Body weight 2022-12-26 72.576 kg University of 15:49:00 [facility] BMI 2022-12-26 22.96 kg/m2 University of 15:49:00 [place] [facility] Respiratory rate 2022-12-12 18 /min University of 16:45:00 [facility] Oxygen saturation 2022-12-12 99 /min [facility] in Arterial blood 16:45:00 [place] [facility] Pulse oximetry [facility] Systolic blood 2022-12-12 135 mm[Hg] University of pressure 16:11:00 [facility] Diastolic blood 2022-12-12 80 mm[Hg] University o f pressure 16:11:00 [facility] Heart rate 2022-12-12 77 /min University of 16:11:00 [facility] Body temperature 2022-12-12 35.89 Tia University of 16:11:00 [facility] Body weight 2022-12-12 65 kg University of 08:50:00 [facility] BMI 2022-12-12 20.56 kg/m2 University of 08:50:00 [facility] Body height 2022-12-11 177.8 cm University of 04:23:00 [facility] Heart rate 2022-12-04 95 /min University of 12:33:00 [facility] Respiratory rate 2022-12-04 17 /min University of 12:33:00 [facility] Oxygen saturation 2022-12-04 98 /min University of in Arterial blood 12:33:00 [facility] by Pulse oximetry Branch Systolic blood 2022-12-04 125 mm[Hg] University of pressure 12:20:00 [facility] Diastolic blood 2022-12-04 74 mm[Hg] University o f pressure 12:20:00 [facility] Body temperature 2022-12-04 36.61 Tia University of 12:20:00 [facility] Body height 2022-12-02 177.8 cm University of 05:16:00 [facility] Body weight 2022-12-02 72.576 kg University of 05:16:00 [facility] BMI 2022-12-02 22.96 kg/m2 University of 05:16:00 [facility] Systolic blood 2022-12-01 114 mm[Hg] University of pressure 13:00:00 [facility] Diastolic blood 2022-12-01 78 mm[Hg] University o f pressure 13:00:00 [facility] Heart rate 2022-12-01 88 /min University of 13:00:00 [facility] Respiratory rate 2022-12-01 20 /min University of 13:00:00 [facility] Oxygen saturation 2022-12-01 98 /min University of in Arterial blood 13:00:00 [place] [facility] Pulse oxim[facility] Body temperature 2022-12-01 36.67 Tia University of 10:13:00 [facility] Body height 2022-12-01 177.8 cm University of 10:13:00 [facility] Body weight 2022-12-01 72.576 kg University of 10:13:00 [facility] BMI 2022-12-01 22.96 kg/m2 University of 10:13:00 [facility] Systolic blood 2022-11-28 154 mm[Hg] University of pressure 17:00:00 [facility] Diastolic blood 2022-11-28 106 mm[Hg] University o f pressure 17:00:00 [facility] Heart rate 2022-11-28 87 /min University of 17:00:00 [facility] Respiratory rate 2022-11-28 23 /min University of 17:00:00 [facility] Oxygen saturation 2022-11-28 96 /min University of in Arterial blood 17:00:00 [facility] by Pulse oximetry Branch Body temperature 2022-11-28 36.78 Tia University of 16:00:00 [facility] Body weight 2022-11-27 67.132 kg University of 12:00:00 [facility] BMI 2022-11-27 21.24 kg/m2 University of 12:00:00 [facility] Body height 2022-11-27 177.8 cm University of 08:39:00 [facility] Systolic blood 2022-11-19 152 mm[Hg] [facility] of pressure 10:48:00 [facility] Diastolic blood 2022-11-19 88 mm[Hg] University o f pressure 10:48:00 [facility] Heart rate 2022-11-19 92 /min University of 10:48:00 [facility] Respiratory rate 2022-11-19 16 /min University of 10:48:00 [facility] Oxygen saturation 2022-11-19 98 /min University of in Arterial blood 10:48:00 [place] [facility] Pulse oxim[facility] Body temperature 2022-11-19 36.22 Tia University of 08:20:00 [facility] Body height 2022-11-19 177.8 cm University of 08:20:00 [facility] Body weight 2022-11-19 67.132 kg University of 08:20:00 [facility] BMI 2022-11-19 21.24 kg/m2 University of 08:20:00 [facility] Systolic blood 2022-11-19 152 mm[Hg] University of pressure 02:18:57 [facility] Diastolic blood 2022-11-19 91 mm[Hg] University o f pressure 02:18:57 [facility] Heart rate 2022-11-19 109 /min University of 02:18:57 [facility] Respiratory rate 2022-11-19 22 /min University of 02:18:57 [facility] Oxygen saturation 2022-11-19 95 /min University of in Arterial blood 02:18:57 [place] [facility] Pulse oxim[facility] Body temperature 2022-11-19 36.78 Tia University of 02:17:11 [facility] Body height 2022-11-19 177.8 cm University of 00:52:00 [facility] Body weight 2022-11-19 67.132 kg University of 00:52:00 [facility] BMI 2022-11-19 21.24 kg/m2 University of 00:52:00 [facility] Heart rate 2022-11-11 75 /min University of 17:35:00 [facility] Respiratory rate 2022-11-11 18 /min University of 17:35:00 [facility] Oxygen saturation 2022-11-11 95 /min University of in Arterial blood 17:35:00 [place] [facility] Pulse o[facility] Systolic blood 2022-11-11 130 mm[Hg] University of pressure 17:25:00 [facility] Diastolic blood 2022-11-11 71 mm[Hg] University o f pressure 17:25:00 [facility] Body temperature 2022-11-11 35.94 Tia University of 17:25:00 [facility] Body weight 2022-11-11 77.52 kg University of 09:34:00 [facility] BMI 2022-11-11 24.52 kg/m2 University of 09:34:00 [facility] Body height 2022-11-09 177.8 cm University of 19:30:00 [facility] Systolic blood 2020-12-29 96 mm[Hg] University of pressure 15:24:00 [facility] Diastolic blood 2020-12-29 66 mm[Hg] University o f pressure 15:24:00 [facility] Heart rate 2020-12-29 71 /min University of 15:24:00 [facility] Body temperature 2020-12-29 36.33 Tia University of 15:24:00 [facility] Body weight 2020-12-29 72.576 kg University of 15:24:00 [facility] BMI 2020-12-29 22.96 kg/m2 University of 15:24:00 [facility] Oxygen saturation 2020-12-29 95 /min University of in Arterial blood 15:24:00 [facility] by Pulse oximetry Branch Systolic blood 2020-12-18 117 mm[Hg] University of pressure 19:07:00 [facility] Diastolic blood 2020-12-18 77 mm[Hg] University o f pressure 19:07:00 [facility] Heart rate 2020-12-18 77 /min University of 19:07:00 [facility] Body temperature 2020-12-18 36.22 Tia University of 19:07:00 [facility] Respiratory rate 2020-12-18 18 /min University of 19:07:00 [facility] Body height 2020-12-18 177.8 cm University of 19:07:00 [facility] Body weight 2020-12-18 73.211 kg University of 19:07:00 [facility] BMI 2020-12-18 23.16 kg/m2 University of 19:07:00 [facility] Systolic blood 2020-12-12 109 mm[Hg] University of pressure 18:00:00 [facility] Diastolic blood 2020-12-12 74 mm[Hg] University o f pressure 18:00:00 [facility] Heart rate 2020-12-12 78 /min University of 18:00:00 [facility] Respiratory rate 2020-12-12 20 /min University of 18:00:00 [facility] Oxygen saturation 2020-12-12 96 /min University of in Arterial blood 18:00:00 [facility] by Pulse oximetry Branch Body temperature 2020-12-12 37.28 Tia University of 16:33:00 [facility] Body height 2020-12-12 177.8 cm University of 16:33:00 [facility] Body weight 2020-12-12 70.308 kg University of 16:33:00 [facility] BMI 2020-12-12 22.24 kg/m2 University of 16:33:00 [facility] Systolic blood 2020-12-08 125 mm[Hg] University of pressure 18:55:00 [facility] Diastolic blood 2020-12-08 82 mm[Hg] University o f pressure 18:55:00 [facility] Heart rate 2020-12-08 75 /min University of 18:55:00 [facility] Body temperature 2020-12-08 36.56 Tia University of 18:55:00 [facility] Respiratory rate 2020-12-08 16 /min University of 18:55:00 [facility] Body height 2020-12-08 177.8 cm University of 18:55:00 [facility] Body weight 2020-12-08 73.12 kg University of 18:55:00 [facility] BMI 2020-12-08 23.13 kg/m2 University of 18:55:00 [facility] Systolic blood 2019-05-04 127 mm[Hg] University of pressure 04:21:00 [facility] Diastolic blood 2019-05-04 86 mm[Hg] University o f pressure 04:21:00 [facility] Heart rate 2019-05-04 99 /min University of 04:21:00 [facility] Respiratory rate 2019-05-04 26 /min University of 04:21:00 [facility] Body height 2019-05-04 177.8 cm [place] of 04:21:00 [facility] Body weight 2019-05-04 72.576 kg [place] of 04:21:00 [facility] BMI 2019-05-04 22.96 kg/m2 University of 04:21:00 [facility] Oxygen saturation 2019-05-04 99 /min University in Arterial blood 04:21:00 [facility] Pulse oximetry Branch Systolic blood 2019-05-04 127 mm[Hg] University of pressure 04:21:00 [facility] Diastolic blood 2019-05-04 86 mm[Hg] University o f pressure 04:21:00 [facility] Heart rate 2019-05-04 99 /min University of 04:21:00 [facility] Respiratory rate 2019-05-04 26 /min University of 04:21:00 [facility] Body height 2019-05-04 177.8 cm University of 04:21:00 [facility] Body weight 2019-05-04 72.576 kg University of 04:21:00 [facility] BMI 2019-05-04 22.96 kg/m2 [facility] 04:21:00 [facility] Oxygen saturation 2019-05-04 99 /min [facility] Arterial blood 04:21:00 [facility] by Pulse oximetry Branch Procedures Procedure Date / Time Performing Clinician Source Performed CONSENT/REFUSAL FOR 2023-03-01 19:49:30 Doctor Unassigned, No [facility] DIAGNOSIS AND TREATMENT Name [facility] TRANSTHORACIC ECHO (TTE) 2023-02-16 13:56:56 Dedrick Toth [facility] COMPLETE W/ CONTRAST Medical Bra nch TROPONIN I 2023-02-16 11:32:00 Dedrick Toth [facility] COMP. METABOLIC PANEL 2023-02-16 11:32:00 Dedrick Toth [facility] ([id number]) [facility] CBC WITH DIFF 2023-02-16 11:32:00 Dedrick Toth [facility] N-TERMINAL PRO-BNP 2023-02-16 11:32:00 Dedrick Toth [facility] URINALYSIS 2023-02-15 21:18:00 Francisca Bryant [facility] HB ECG ROUTINE & RHYTHM 2023-02-15 20:15:35 Francisca Bryant [facility] XR CHEST 1 VW 2023-02-15 20:14:30 Francisca Bryant [facility] AC PANEL 21 + LACTIC 2023-02-15 20:02:00 Francisca Bryant [facility] ACID [facility] MAGNESIUM 2023-02-15 20:01:00 Francisca Bryant [facility] TROPONIN I 2023-02-15 20:01:00 Francisca Bryant [facility] COMP. METABOLIC PANEL 2023-02-15 20:01:00 Francisca Bryant [facility] ([id number]) [facility] CBC WITH DIFF 2023-02-15 20:01:00 Francisca Bryant [facility] ASSIGNMENT OF BENEFITS 2023-02-07 19:52:07 Doctor Unassigned, No [facility] CONSENT/REFUSAL FOR 2023-02-07 19:51:03 Doctor Unassigned, No [facility] [place] [facility] Name [facility] CONSENT/REFUSAL FOR 2023-02-04 19:51:56 Doctor Unassigned, No [facility] [place] DIAGNOSIS AND TREATMENT Name [facility] TROPONIN I 2023-01-31 20:21:00 Kristie [facility] COMP. METABOLIC PANEL 2023-01-31 20:21[id number] ETHANOL 2023-01-31 20:21:00 Kristie [facility] CBC WITH DIFF 2023-01-31 20:21:00 Kristie [facility] N-TERMINAL PRO-BNP 2023-01-31 20:21:00 Rachael Flowers [facility] CONSENT/REFUSAL FOR 2023-01-31 18:39:05 Doctor Unassigned, No [facility] [place] DIAGNOSIS AND TREATMENT Name [facility] CONSENT/REFUSAL FOR 2023-01-31 15:54:08 Doctor Unassigned, No [facility] [place] DIAGNOSIS AND TREATMENT Name [facility] CONSENT/REFUSAL FOR 2023-01-31 14:29:18 Doctor Unassigned, No [facility] [place] DIAGNOSIS AND TREATMENT Name [facility] ACUTE CARE VENOUS BLOOD 2023-01-27 10:45:00 Bessie Oswald [facility] GAS [facility] TROPONIN I 2023-01-27 10:16:00 Bessie Oswald [facility] BASIC METABOLIC PANEL 2023-01-27 10:16:00 Bessie Oswald [facility] (NA, K, CL, CO2, Medical Branch GLUCOSE, BUN, CREATININE, CA) CBC WITH DIFF 2023-01-27 10:16:00 Bessie Oswald [facility] N-TERMINAL PRO-BNP 2023-01-27 10:16:00 Bessie Oswald [facility] URINALYSIS 2023-01-24 20:23:00 Stephanie Almonte [facility] CT HEAD WO CONTRAST 2023-01-24 19:38:00 Stephanie Almonte [facility] AC ABG + LACTIC ACID 2023-01-24 18:37:00 Stephanie [facility] AMMONIA, PLASMA 2023-01-24 18:19:00 Stephanie Almonte [facility] RAPID STREP SCREEN FOR 2023-01-24 18:19:00 Stephanie Almonte [facility] GROUP A [facility] COVID-19 (ID NOW RAPID 2023-01-24 18:19:00 Stephanie Almonte [facility] TESTING) Medical Branch TROPONIN I 2023-01-24 17:52:00 Stephanie Almonte [facility] COMP. METABOLIC PANEL 2023-01-24 17:52:00 Stephanie Almonte [facility] ([id number]) Medical Branch ETHANOL 2023-01-24 17:52:00 Stephanie Almonte [facility] CBC WITH DIFF 2023-01-24 17:52:00 Stephaine Almonte [facility] N-TERMINAL PRO-BNP 2023-01-24 17:52:00 Stephanie Almonte [facility] COMP. METABOLIC PANEL 2023-01-21 20:58:00 Louis Hong [facility] ([id number]) [facility] TROPONIN I 2023-01-21 20:05:00 Singer [facility] CBC WITH DIFF 2023-01-21 20:05:00 Singer [facility] N-TERMINAL PRO-BNP 2023-01-21 20:05:00 Louis Hong [facility] AC PANEL 21 + LACTIC 2023-01-19 08:31:00 Jaymie Hacketthosh [facility] ACID [facility] D-DIMER 2023-01-19 08:17:00 Lew [facility] BASIC METABOLIC PANEL 2023-01-19 08:15:00 Iza Varma [facility] (NA, K, CL, CO2, Medical Branch GLUCOSE, BUN, CREATININE, CA) CBC WITH DIFF 2023-01-19 08:15:00 Iza Varma [facility] N-TERMINAL PRO-BNP 2023-01-19 08:15:00 Agapito Hackett [facility] EKG-12 LEAD 2023-01-17 12:23:30 Marisol Devlin [facility] XR CHEST 1 VW 2023-01-17 11:25:05 Marisol Devlin [facility] TROPONIN I 2023-01-17 11:04:00 Marisol Devlin [facility] COMP. METABOLIC PANEL 2023-01-17 11:04:00 Marisol Devlin [facility] ([id number]) [facility] CBC WITH DIFF 2023-01-17 11:04:00 Marisol Devlin [facility] N-TERMINAL PRO-BNP 2023-01-17 11:04:00 Marisol Devlin [facility] COMP. METABOLIC PANEL 2022-12-26 17:23:00 Iza Varma [facility] ([id number]) [facility] [place] XR CHEST 1 VW 2022-12-26 16:39:21 Iza Varma [facility] URINE DRUG (IMMUNOASSAY) 2022-12-26 16:29:00 Iza Varma [facility] SCREEN URINALYSIS 2022-12-26 16:29:00 Iza Varma [facility] CBC WITH DIFF 2022-12-26 16:28:00 Iza Varma [facility] MAGNESIUM 2022-12-12 08:55:00 [facility] BASIC METABOLIC PANEL 2022-12-12 08:55:00 [facility] (NA, K, CL, CO2, Medical Branch GLUCOSE, BUN, CREATININE, CA) LIPID PANEL 2022-12-12 08:55:00 [facility] ([id number])(TOTAL Medical Branch CHOLESTEROL, TRIGLYCERIDES, HDL) N-TERMINAL PRO-BNP 2022-12-12 08:55:00 [facility] 2022-12-11 08:30:00 Dedrick Toth [facility] OSMOLALITY, SERUM OR 2022-12-11 08:30:00 Dedrick Toth [facility] FREE T4 2022-12-11 08:30:00 Dedrick Toth [facility] BASIC METABOLIC PANEL 2022-12-11 08:30:00 Dedrick Toth [facility] (NA, K, CL, CO2, [facility] GLUCOSE, BUN, CREATININE, CA) CBC WITH DIFF 2022-12-11 08:30:00 Dedrick Toth [facility] N-TERMINAL PRO-BNP 2022-12-11 08:30:00 Dedrick Toth [facility] OSMOLALITY URINE 2022-12-11 03:24:00 Dedrick Toth [facility] SODIUM, URINE RANDOM 2022-12-11 03:24:00 Dedrick Toth [facility] URINALYSIS 2022-12-11 01:15:00 Singer [facility] HB ECG ROUTINE & RHYTHM 2022-12-11 00:38:04 Singer [facility] CT HEAD WO CONTRAST 2022-12-11 00:32:23 Louis Hong [facility] XR CHEST 1 VW 2022-12-11 00:29:20 Singer [facility] TROPONIN I 2022-12-11 00:08:00 Singer [facility] COMP. METABOLIC PANEL 2022-12-11 00:08:00 Louis Hong [facility] ([id number]) Medical Branch ETHANOL 2022-12-11 00:08:00 Singer [facility] CBC WITH DIFF 2022-12-11 00:08:00 Singer [facility] N-TERMINAL PRO-BNP 2022-12-11 00:08:00 Singer [facility] LACTIC ACID WHOLE BLOOD 2022-12-11 00:03:00 Louis Hong [facility] AUTHORIZATION FOR 2022-12-09 05:01:00 Doctor Unassigned, No [facility] RELEASE OF [facility] BASIC METABOLIC PANEL 2022-12-04 10:43:00 EvaFormerly [facility] (NA, K, CL, CO2, Medical Branch GLUCOSE, BUN, CREATININE, CA) CBC WITH DIFF 2022-12-04 10:43:00 Ben [facility] OSMOLALITY URINE 2022-12-03 17:05:[address] [facility] SODIUM, URINE RANDOM 2022-12-03 17:05:00 Juan MiguelSudhakar hardy [facility] 2022-12-03 10:20:00 [facility] METABOLIC PANEL 2022-12-03 10:20:00 [facility] (NA, K, CL, CO2, Medical Branch GLUCOSE, BUN, CREATININE, CA) CBC WITH DIFF 2022-12-03 10:20:00 [facility] METABOLIC PANEL 2022-12-02 05:27:00 [facility] (NA, K, CL, CO2, Medical Branch GLUCOSE, BUN, CREATININE, CA) CONSENT/REFUSAL FOR 2022-12-02 05:08:30 Doctor Unassigned, No Un iversity [facility] DIAGNOSIS AND TREATMENT [facility] HOSPITAL ADMISSION 2022-12-02 05:01:00 Doctor Unassigned, No Uni versity of [facility] COVID-19 (ID NOW RAPID 2022-12-01 13:01:00 Ernesto Piper [facility] TESTING) Medical Branch XR CHEST 1 VW 2022-12-01 12:40:25 Marisol Devlin [facility] EKG-12 LEAD 2022-12-01 12:17:26 Marisol Devlin [facility] ACUTE CARE ARTERIAL 2022-12-01 12:06:00 Marisol Devlin [facility] BLOOD GAS Medical Branch TROPONIN I 2022-12-01 11:51:00 Marisol Devlin [facility] BASIC METABOLIC PANEL 2022-12-01 11:51:00 Marisol Devlin [facility] (NA, K, CL, CO2, Medical Branch GLUCOSE, BUN, CREATININE, CA) CBC WITH DIFF 2022-12-01 11:51:00 Marisol Devlin [facility] BASIC METABOLIC PANEL 2022-11-28 16:51:00 Leila Chapa [facility] (NA, K, CL, CO2, Medical Branch GLUCOSE, BUN, CREATININE, CA) URIC ACID 2022-11-28 08:14:00 [facility] THYROID STIMULATING 2022-11-28 08:14:00 Reyna [facility] HORMONE [facility] Branch BASIC METABOLIC PANEL 2022-11-28 08:14:00 Leila Chapa [facility] (NA, K, CL, CO2, Medical Branch GLUCOSE, BUN, CREATININE, CA) CBC WITH DIFF 2022-11-28 08:14:00 María Diaz [facility] BASIC METABOLIC PANEL 2022-11-28 04:16:00 María Diaz [facility] (NA, K, CL, CO2, Medical Branch GLUCOSE, BUN, CREATININE, CA) BASIC METABOLIC PANEL 2022-11-28 00:33:00 Leila Chapa [facility] (NA, K, CL, CO2, Medical Branch GLUCOSE, BUN, CREATININE, CA) BASIC METABOLIC PANEL 2022-11-27 19:55:00 María Diaz [facility] (NA, K, CL, CO2, Medical Branch GLUCOSE, BUN, CREATININE, CA) MRSA / MSSA SCREEN BY 2022-11-27 09:21:00 María Diaz [facility] PCR, NARES [facility] OSMOLALITY, SERUM OR 2022-11-27 09:10:00 María Diaz [facility] PLASMA [facility] Branch OSMOLALITY URINE 2022-11-27 09:04:00 María Diaz [facility] BASIC METABOLIC PANEL 2022-11-27 09:04:00 María Diaz [facility] (NA, K, CL, CO2, Medical Branch GLUCOSE, BUN, CREATININE, CA) URINE DRUG (IMMUNOASSAY) 2022-11-27 09:04:00 María Diaz [facility] SCREEN URINALYSIS 2022-11-27 09:04:00 María Diaz [facility] CREATININE, URINE RANDOM 2022-11-27 09:04:00 María Diaz [facility] SODIUM, URINE RANDOM 2022-11-27 09:04:00 María Diaz [facility] XR CHEST 1 VW 2022-11-27 06:15:54 Bessie Oswald [facility] MAGNESIUM 2022-11-27 05:33:00 María Diaz [facility] TROPONIN I 2022-11-27 05:33:00 Bessie Oswald [facility] COMP. METABOLIC PANEL 2022-11-27 05:33:00 Bessie Oswald [facility] ([id number]) Medical Branch ETHANOL 2022-11-27 05:33:00 Bessie Oswald [facility] CBC WITH DIFF 2022-11-27 05:33:00 Bessie Oswald [facility] GLYCOSYLATED HEMOGLOBIN 2022-11-27 05:33:00 Leila Chapa [facility] (A1C) [facility] N-TERMINAL PRO-BNP 2022-11-27 05:33:00 Bessie Oswald [facility] HB ECG ROUTINE & RHYTHM 2022-11-27 05:31:54 Bessie Oswald [facility] STRIP [facility] COMP. METABOLIC PANEL 2022-11-19 08:44:00 Iza Varma [facility] ([id number]) [facility] CBC WITH DIFF 2022-11-19 08:44:00 Iza Varma [facility] N-TERMINAL PRO-BNP 2022-11-19 08:44:00 Iza Varma [facility] BASIC METABOLIC PANEL 2022-11-11 10:52:00 Iza Eden [facility] (NA, K, CL, CO2, Medical Branch GLUCOSE, BUN, CREATININE, CA) CBC WITH DIFF 2022-11-11 10:52:00 Iza Eden [facility] BASIC METABOLIC PANEL 2022-11-11 02:16:00 [facility] (NA, K, CL, CO2, Medical Branch GLUCOSE, BUN, CREATININE, CA) BASIC METABOLIC PANEL 2022-11-10 22:45:00 [facility] (NA, K, CL, CO2, Medical Branch GLUCOSE, BUN, CREATININE, CA) BASIC METABOLIC PANEL 2022-11-10 17:27:00 [facility] (NA, K, CL, CO2, Medical Branch GLUCOSE, BUN, CREATININE, CA) BASIC METABOLIC PANEL 2022-11-10 11:49:00 [facility] (NA, K, CL, CO2, Medical Branch GLUCOSE, BUN, CREATININE, CA) MAGNESIUM 2022-11-10 07:14:00 Travis Zeng [facility] BASIC METABOLIC PANEL 2022-11-10 07:14:00 [facility] (NA, K, CL, CO2, Medical Branch GLUCOSE, BUN, CREATININE, CA) CBC WITH DIFF 2022-11-10 07:14:00 [facility] XR CHEST 1 VW 2022-11-09 07:53:00 Marisol Devlin [facility] LIPASE 2022-11-09 07:53:00 Marisol Devlin [facility] TROPONIN I 2022-11-09 07:53:00 Marisol Devlin [facility] COMP. METABOLIC PANEL 2022-11-09 07:53:00 Marisol Devlin [facility] ([id number]) Medical Branch CBC WITH DIFF 2022-11-09 07:53:00 Marisol Devlin [facility] N-TERMINAL PRO-BNP 2022-11-09 07:53:00 Marisol Devlin [facility] ACUTE CARE ARTERIAL 2022-11-09 07:50:00 Marisol Devlin [facility] BLOOD GAS Medical Branch HB ECG ROUTINE & RHYTHM 2022-11-09 07:39:47 Marisol Devlin [facility] Medical [place] ASSIGNMENT OF BENEFITS 2021-05-20 19:26:54 Doctor Unassigned, No [facility] POCT URINALYSIS AUTO 2020-12-18 19:04:00 Gokul Turner [facility] CT ABDOMEN PELVIS W 2020-12-12 17:25:03 Francisca Bryant [facility] CONTRAST [facility] BASIC METABOLIC PANEL 2020-12-12 16:47:00 Francisca Bryant [facility] (NA, K, CL, CO2, Medical Branch GLUCOSE, BUN, CREATININE, CA) CBC WITH DIFF 2020-12-12 16:47:00 Francisca Bryant [facility] URINALYSIS 2020-12-12 16:47:00 Francisca Bryant [facility] NOTICE OF PRIVACY 2020-12-12 16:28:57 Doctor Unassigned, No [facility] Medical Branch CONSENT/REFUSAL FOR 2020-12-12 16:28:23 Doctor Unassigned, No [facility] [place] DIAGNOSIS AND TREATMENT [facility] Medical Branch POCT URINALYSIS AUTO 2020-12-08 18:56:00 Jeanette Mcdaniel [facility] Medical [place] CONSENT/REFUSAL FOR 2020-12-08 18:26:17 Doctor Unassigned, No [facility] [place] DIAGNOSIS AND TREATMENT Name Medical Branch ASSIGNMENT OF BENEFITS 2020-12-08 18:25:58 Doctor Unassigned, No [facility] Medical Branch AUTHORIZATION FOR 2020-02-20 05:01:00 Doctor Unassigned, No [facility] RELEASE OF [facility] Medical Branch NOTICE OF PRIVACY 2019-05-04 04:10:29 Doctor Unassigned, No [facility] Medical Branch CONSENT/REFUSAL FOR 2019-05-04 04:10:09 Doctor Unassigned, No [facility] [place] DIAGNOSIS AND TREATMENT Name Medical Branch Encounters Start End Encounter Admission Attending Care Care Encounter Source Date/Time Date/Time Type Type Clinicians Facility Department ID 2021-07-19 Emergency [facility] [id number] Univers 08:46:33 ity of [facility] 2023-03-01 2023-03-01 Office Adriano [facility] 1.2.840.114 [id number] Univers 16:30:00 17:00:00 [facility] [id number] it y of [place] 4.2.7.2.686 [place] as JACKIE?BLEA [id number] [facility] [address] [place] MEDICAL OFFICE [facility] 2023-03-01 2023-03-01 Outpatient R ADRIANO [facility] [id number] Univers 16:30:00 16:30:[address] [facility] 2023-03-01 2023-03-01 Orders Doctor ELDER 1.2.840.114 [id number] Univers 00:00:00 00:00:00 Only Unassigned, ASHER 350.1.13.10 ity of [place] [facility] 4.2.7.2.686 Nelson as [id number] [facility] [address] [place] 2023-03-01 2023-03-01 Chantelle Goodwin [facility] 1.2.840.114 [id number] Univers 00:00:00 00:00:00 , [facility] [id number] ity of Haley DERAS 4.2.7.2.686 [place] JACKIE?BLEA [id number] Wy sreekanth ALBRIGHT [address] [place] MEDICAL OFFICE [facility] 2023-02-21 2023-02-21 Transition GARY Frye 1.2.840.114 [id number] Univers 00:00:00 00:00:00 of Care Taylor SHAIKH 350.1.13.10 it y of [place] [id number] [facility] [address] [place] 2023-02-15 2023-02-18 Inpatient X KARRI [facility] PARRISH [id number] Univers 14:41:00 16:11:[address] [facility] 2023-02-15 2023-02-18 Hospital Iza Varma [facility] 1.2.840.11 [id number] Univers 14:41:00 16:11:00 Encounter Francisca Bryant 350.1.13 .10 ity [facility] 4.2.7.2.686 [facility] [id number] [address] 2023-02-07 2023-02-07 Emergency X NORMAN [facility] ERT [id number] Univers 14:30:00 16:01:00 ROMIEAMOS [facility] 2023-02-07 2023-02-07 Emergency [facility] 1.2.840.114 [id number] Univers 14:30:00 16:01:00 Pradip DERAS 350.1.13.10 ity of [facility] 4.2.7.2.686 [facility] [id number] [address] 2023-02-07 2023-02-07 Outpatient R CARL ORLANDO [facility] [id number] Univers 10:20:00 10:20:00 CARL ORLANDO [facility] 2023-02-05 2023-02-05 Emergency [facility] ERT [id number] Univers 14:53:00 16:10:00 HERMINIA [facility] 2023-02-05 2023-02-05 Emergency [facility] 1.2.431.348 [id number] Univers 14:53:00 16:10:00 Herminia DERAS 350.1.13.10 i ty of [facility] 4.2.7.[address] [place] [id number] 2023-02-04 2023-02-04 Emergency [facility] ERT [id number] Univers 15:26:00 16:25:[address] [facility] 2023-02-04 2023-02-04 Emergency [facility] 1.2.840.114 [id number] Univers 15:26:00 16:25:00 Francisca DERAS 350.1.13.10 ity of [facility] 4.2.7.2.686 [facility] [id number] [address] 2023-02-03 2023-02-03 Emergency X SINGER [facility] ERT [id number] Univers 17:46:00 18:47:[address] [facility] 2023-02-03 2023-02-03 Emergency X [facility] ERT [id number] Univers 17:46:00 18:47:[address] [facility] 2023-02-03 2023-02-03 Emergency Singer [facility] 1.2.468.787 [id number] Univers 17:46:00 18:47:00 Louis DERAS 350.1.13.10 i ty of [place] 4.2.7.2.686 [facility] [id number] [address] 2023-02-03 2023-02-03 Emergency [facility]ina[facility] 1.2.370.738 [id number] Univers 12:43:00 15:04:00 Bessie DERAS 350.1.13.10 i ty of [place] 4.2.7.2.686 [facility] [id number] [address] 2023-02-02 2023-02-02 Emergency X [facility] ERT [id number] Univers 16:49:00 18:10:[address] [facility] 2023-02-02 2023-02-02 Emergency [facility] 1.2.663.285 [id number] Univers 16:49:00 18:10:00 Louis DERAS 350.1.13.10 i ty of [place] 4.2.7.2.686 [facility] [id number] [address] 2023-01-31 2023-01-31 Emergency X KRISTIE, [facility] ERT [id number] Univers 13:55:00 16:50:[address] [facility] 2023-01-31 2023-01-31 Emergency X KRISTIE, [facility] ERT [id number] Univers 13:55:00 16:50:[address] [facility] 2023-01-31 2023-01-31 Emergency Kristie, [facility] 1.2.840.114 [id number] Univers 13:55:00 16:50:00 Rachael OGLESBYRADHA 350.1.13.10 i ty of [place] 4.2.7.2.686 [facility] [id number] [address] 2023-01-31 2023-01-31 Emergency X SRAVAN, [facility] ERT [id number] Univers 11:11:00 12:12:[address] [facility] 2023-01-31 2023-01-31 Emergency Vasrenetta, [facility] 1.2.011.927 [id number] Univers 11:11:00 12:12:00 Leobardo DERAS 350.1.13.10 i ty of [place] 4.2.7.2.[address] [place] [id number] 2023-01-31 2023-01-31 Emergency [facility] 1.2.000.037 [id number] Univers 09:51:00 10:16:00 BRAEDEN 350.1.13.10 i ty of [facility] 4.2.7.2.[address] [place] [id number] 2023-01-29 2023-01-29 Emergency X MARQUIS, [facility] ERT [id number] Univers 08:08:00 10:00:00 HERMINIA [facility] 2023-01-29 2023-01-29 Emergency [facility] 1.2.847.997 [id number] Univers 08:08:00 10:00:00 Herminia DERAS 350.1.13.10 i ty of [facility] 4.2.7.2.[address] [place] [id number] 2023-01-27 2023-01-27 Emergency X [facility]AREKGALLUP [facility] ERT [id number] Univers 04:50:00 07:03:[address] [facility] 2023-01-27 2023-01-27 Emergency [facility] 1.2.620.255 [id number] Univers 04:50:00 07:03:00 Bessie DERAS 350.1.13.10 i ty of [facility] 4.2.7.2.[address] [place] [id number] 2023-01-27 2023-01-27 Telephone [facility] 1.2.347.845 [id number] Univers 00:00:00 00:00:00 Nomi DERAS 350.1.13.10 i ty of [facility] 4.2.7.2.686 [facility] [id number] [facility] [address] 2023-01-24 2023-01-24 Emergency X [facility] ERT [id number] Univers 12:28:00 16:16:[address] [facility] 2023-01-24 2023-01-24 Emergency [facility] 1.2.247.348 [id number] Univers 12:28:00 16:16:00 Stephanie DERAS 350.1.13.10 i ty of Meek [facility] 4.2.7.2.686 [facility] [id number] [address] 2023-01-23 2023-01-23 Emergency X [facility] ERT [id number] Univers 19:02:00 20:36:[address] [facility] 2023-01-23 2023-01-23 Emergency [facility] 1.2.858.480 [id number] Univers 19:02:00 20:36:00 Iza DERAS 350.1.13.10 i ty of [facility] 4.2.7.2.686 [facility] [id number] [address] 2023-01-22 2023-01-22 Emergency X [facility] ERT [id number] Univers 18:24:00 19:55:[address] [facility] 2023-01-22 2023-01-22 Emergency [facility] 1.2.855.839 [id number] Univers 18:24:00 19:55:00 Iza DERAS 350.1.13.10 i ty of [facility] 4.2.7.2.686 [facility] [id number] [address] 2023-01-21 2023-01-21 Emergency Sandie [facility] ERT [id number] Univers 14:20:00 18:14:[address] [facility] 2023-01-21 2023-01-21 Emergency [facility] 1.2.723.593 [id number] Univers 14:20:00 18:14:00 Louis DERAS 350.1.13.10 i ty of [facility] 4.2.7.2.686 [facility] [phone] [facility] 084 Branch 2023-01-20 2023-01-20 Transition GARY Frye 1.2.840.114 [id number] Univers 00:00:00 00:00:00 of Care Taylor SHAIKH 350.1.13.10 it y of [place] [facility] [facility] [id number] [facility] 403 Branch 2023-01-19 2023-01-19 [facility] 1.2.84 0.114 [id number] Univers 01:15:00 19:40:00 Encounter Iza Varma [place] 350.1.13.10 ity of Agapito Hackett [place] 4.2.7.2.686 [facility] [id number] [address] 2023-01-17 2023-01-17 Emergency X [facility] ERT [id number] Univers 05:57:00 07:37:00 MTADONISLI ity of [facility] 2023-01-17 2023-01-17 [facility] 1.2.666.043 [id number] Univers 05:57:00 07:37:00 Marisol DERAS 350.1.13.10 ity of [facility] 4.2.7.2.686 [facility] [id number] [address] 2023-01-17 2023-01-17 Emergency X [facility] ERT [id number] Univers 05:57:00 07:37:00 KEOLI ity of [facility] 2023-01-10 2023-01-10 G[facility] 1.2.840.114 [id number] Univers 00:00:00 00:00:00 (Out) Ahorro Libre 350.1.13.10 it y of [place] 4.2.7.2.686 [place] as JACKIE?BLEA [id number] Wy sreekanth ALBRIGHT [address] [place] [address] MEDICAL OFFICE BUILDING 2023-01-072023-01-07 Outpatient R ADRIANO [facility] [id number] Univers 14:30:00 15:25:[address] [facility] 2023-01-07 2023-01-07 Office [facility] 1.2.840.114 [id number] Univers 14:30:00 15:25:56 [facility] 350.1.13.10 it y of [place] 4.2.7.2.686 [place] as JACKIE?BLEA [id number] Wy sreekanth [place] [id number] [place] MEDICAL OFFICE [facility] 2022-12-26 2022-12-26 Emergency X [facility]ALLUP [facility] ERT [id number] Univers 10:50:00 14:12:[address] [facility] 2022-12-26 2022-12-26 Emergency [facility] 1.2.141.325 [id number] Univers 10:50:00 14:12:00 Iza S [place] 350.1.13.10 i ty of [facility] 4.[place] [id number] [facility] 084 Branch 2022-12-14 2022-12-14 Outpatient R NOMI MARY [facility] [id number] Univers 11:30:00 11:30:00 NOMI MARY i ty of [facility] 2022-12-14 2022-12-14 Transition FryeGARY 1.2.840.114 [id number] Univers 00:00:00 00:00:00 of Mack SHAIKH 350.1.13.10 it y of [place] 4.2.7.2.686 [place] [id number] [facility] 403 Branch 2022-12-10 2022-12-12 Outpatient X KARRI [facility] [id number] Univers 18:49:00 14:35:[address] [facility] 2022-12-10 2022-12-12 [facility] Louis Hong [facility] 1.2.840.1 14 [id number] Univers 18:49:00 14:35:00 Encounter Dedrick Toth 350.1.13. 10 ity of Travis Zeng 4.2.7.2.686 [facility] [id number] [facility] 081 Branch 2022-12-10 2022-12-10 Case Mathew [facility] 1.2.840.114 [id number] Univers 00:00:00 00:00:00 Management Yenniumair [place] 350.1.13.10 ity of [place].7.2.[place] [id number] Wy dical [facility] 085 Branch BUILDING 2022-12-10 2022-12-10 Transition GARY Caro 1.2.840.114 [id number] Univers 00:00:00 00:00:00 of Care Cecy SHAIKH 350.1.13.10 [place] [id number] [facility] 403 Branch 2022-12-09 2022-12-09 Orders Doctor ELDER 1.2.840.114 [id number] Univers 00:00:00 00:00:00 Only Unassigned, ASHER 350.1.13.10 ity of [place] [facility] 4.2.7.2.686 Nelson as [id number] [facility] 009 Branch 2022-12-06 2022-12-06 Transition GARY Frye 1.2.840.114 [id number] Univers 00:00:00 00:00:00 of Care Taylor Usman SHAIKH 350.1.13.10 it [place] [id number] [facility] 403 [address] 2022-12-02 2022-12-04 Hospital Carlo Maki [facility] 1.2.8 40.114 [id number] Univers 00:13:00 12:30:00 Encounter Phatak, Abi HEALTH 350.1.13.10 ity of Clive Contreras 4.2.7.2.[address] [facility] [id number] [facility] [address] (CLC) 2022-12-01 2022-12-01 Emergency U ERNESTO PIPER [facility] ERT [id number] Univers 05:32:00 09:08:00 ERNESTO PIPER ity of [facility] 2022-12-01 2022-12-01 Emergency Marisol Devlin [facility] 1.2.840 .114 [id number] Univers 05:32:00 09:08:00 Ernesto Piper BRAEDEN 350.1.13.10 ity of Krissy Powers 4.2.7.2.686 [facility] [id number] [place] [address] Branch 2022-12-01 2022-12-01 Emergency U ERNESTO PIPER [facility] ERT [id number] Univers 05:32:00 09:08:00 ERNESTO PIPER [facility] 2022-11-26 2022-11-28 Outpatient X DHARMESH [facility] PARRISH [id number] Univers 22:55:00 13:50:00 LEILA [facility] 2022-11-26 2022-11-28 [facility] Darek Papi [facility] 1.2.840.11 4 [id number] Univers 22:55:00 13:50:00 Encounter María Diaz 350.1.13.10 ity PatrickraoulLeila 4.2.7.2.686 [facility] [id number] [place] [address] Branch 2022-11-19 2022-11-19 Emergency X AVANI [facility] ERT [id number] Univers 02:17:00 05:12:00 IZA [facility] 2022-11-19 2022-11-19 [facility] 1.2.799.125 [id number] Univers 02:17:00 05:12:00 Iza DERAS 350.1.13.10 i ty leti PATHAK 4.2.7.2.686 [facility] [id number] [place] [address] Branch 2022-11-18 2022-11-18 Emergency X MANNY [facility] ERT [id number] Univers 18:52:00 20:29:[address] [facility] 2022-11-18 2022-11-18 Emergency Manny [facility] 1.2.840.114 [id number] Univers 18:52:00 20:29:00 Francisca DERAS 350.1.13.10 it[place] of [place] [phone] [facility] [address] 2022-11-17 2022-11-17 Telephone [facility] 1.2.962.243 [id number] Univers 00:00:00 00:00:00 Nomi DERAS 350.1.13.10 i ty [facility] [place] [phone] Wy dical NAL 085 [facility] 2022-11-12 2022-11-12 Transition GARY Frye 1.2.840.114 [id number] Univers 00:00:00 00:00:00 of Care Taylor SHAIKH 350.1.13.10 it y of [place] [phone] [facility] [address] 2022-11-09 2022-11-11 Inpatient X KARRI [facility] [id number] Univers 01:32:00 13:35:00 TRAVIS ity of [facility] 2022-11-09 2022-11-11 [facility] 1.2.840. 114 [id number] Univers 01:32:00 13:35:00 Encounter Travis Zeng 350.1.13.10 it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 [place], Anshu Lab Main [facility] 1.2.8 40.114 [id number] Univers 14:28:38 14:43:38 Visit Gokul Turner 350.1.13.10 ity of [place] [phone] [facility] 353 [facility] 2021-05-20 2021-05-20 [facility] [id number] Univers 14:30:00 14:30:00 [facility] 2021-05-20 2021-05-20 Orders Doctor ELDER 1.2.840.114 [id number] Univers 00:00:00 00:00:00 Only Unassigned, ASHER 350.1.13.10 ity of [place] [facility] 4.2.7.2.686 [place] as [phone] [address] 2021-05-20 2021-05-20 Telephone [facility] 1.2.840.114 [id number] Univers 00:00:00 00:00:00 Gokul [place] 350.1.13.10 i ty of [place] [phone] [facility] 204 [facility] 2020-12-29 2020-12-29 Office [facility] 1.2.840.114 [id number] Univers 10:12:45 11:07:51 Visit [facility] 350.1.13.10 i ty of [place] [phone] [facility] 204 [facility] 2020-12-29 2020-12-29 Outpatient R YUE [facility] [id number] Univers 10:15:00 10:15:00 [facility] 2020-12-18 2020-12-18 Office Yue [facility] 1.2.840.114 [id number] Univers 13:36:17 14:58:35 Visit Rm, Adc Surg Spec Procedure [place] 3 50.1.13.10 ity of [place] [phone] [facility] 204 [facility] 2020-12-18 2020-12-18 Outpatient R YUE [facility] [id number] Univers 14:00:00 14:00:00 [facility] 2020-12-16 2020-12-16 Outpatient R GRAMM, [facility] [id number] Univers 00:00:00 00:00:00 JEANETTE judge of [facility] 2020-12-16 2020-12-16 Telephone [facility] 1.2.556.967 [id number] Univers 00:00:00 00:00:00 Jeanette Deras 350.1.13.10 ity of [place] [phone] Wy dical [address] 2020-12-12 2020-12-12 Emergency [facility] 1.2.840.114 [id number] Univers 11:36:00 13:42:00 Francisca Deras 350.1.13.10 ity of [place] [phone] [facility] [address] [place] [address] 2020-12-12 2020-12-12 Telephone [facility] 1.2.117.585 [id number] Univers 00:00:00 00:00:00 Jeanette Deras 350.1.13.10 ity of [place] [phone] Wy dical nal [address] [place] [address] 2020-12-08 2020-12-08 Office [facility] 1.2.840.114 [id number] Univers 13:28:10 14:09:14 Visit Jeanette Deras 350.1.13.10 ity of [place] [phone] Wy dical [address] 2020-12-08 2020-12-08 Outpatient R [facility] [id number] Univers 13:30:00 13:30:00 JEANETTE judge of [facility] 2020-12-08 2020-12-08 Orders Doctor ELDER 1.2.840.114 [id number] Univers 00:00:00 00:00:00 Only Unassigned, ASHER 350.1.13.10 ity of [place] [facility] 4.2.7.2.686 [place] [phone] [facility] [address] [place] 2020-12-072020-12-07 Nurse ELDER Perez 1.2.840.114 [id number] Univers 00:00:00 00:00:00 Triage Herminia STERLING 350.1.13.10 ity of [facility] 4.2.7.2.686 [place] [phone] [facility] [address] [place] 2020-06-19 2020-06-19 Outpatient Pepper, HCAWU SURG [id number] [facility] 13:30:00 13:30:00 Tyrell 21 [facility] 2020-02-20 2020-02-20 Orders Doctor FRIEDMAN 1.2.840.114 [id number] 00:00:00 00:00:00 Only Unassigned, ASHER 350.1.13.10 [place] [facility] [phone] 009 2020-02-20 2020-02-20 Orders Doctor FRIEDMAN 1.2.840.114 [id number] Univers 00:00:00 00:00:00 Only Unassigned, ASHER 350.1.13.10 ity of [place] [facility] 4.2.7.2.686 [place] [phone] [address] 2019-08-28 2019-08-28 Emergency X MARQUIS [facility] ERT [id number] Univers 08:25:33 11:54:00 HERMINIA [facility] 2019-08-24 2019-08-24 Emergency X SINGER [facility] ERT [id number] Univers 01:43:17 03:52:00 LOUIS [facility] 2019-05-03 2019-05-04 [facility] 1.2.772.994 [id number] 23:28:18 00:27:00 Ramesh Deras 350.1.13.10 [place] 4.2.7.2.686 [place] [phone] [facility] 2019-05-03 2019-05-04 [facility] 1.2.930.029 [id number] Univers 23:28:18 00:27:00 Ramesh Deras 350.1.13.10 i ty of [place] [phone] [address] 2019-05-03 2019-05-03 Orders Doctor ELDER 1.2.840.114 [id number] Univers 00:00:00 00:00:00 Only Unassigned, ASHER 350.1.13.10 ity of [place] [facility] 4.2.7.2.686 [place] [phone] [address] 2019-05-03 2019-05-03 Orders Doctor ELDER Addison.2.840.114 [id number] 00:00:00 00:00:00 Only UnassignedASHER 350.1.13.10 [place] [facility] [phone] 009 Results Test Description Test Time Test Comments Results Result Comments Source TROPONIN I 2023-02-15 21:12:01 Test Item Value Reference Range Interpretation Comme nts TROPONIN I (test code = 8482039126) <=0.034 OMAYRA (test code = OMAYRA) Reference [...] biotin. Lab Interpretation (test code = Normal 09312-1) [facility]. METABOLIC PANEL ([id number])2023-02-15 21:00:57 Test Item Value Reference Range Interpretation Comments NA (test code = 133 mmol/L 135-145 L 1507228944) K (test code = 4.5 mmol/L 3.5-5.0 8289394850) CL (test code = 90 mmol/L 98-108 L 5620843439) CO2 TOTAL (test code = 40 mmol/L 23-31 H 5748895304) AGAP (test code = 3 2-16 3416066134) BUN (test code = 25 mg/dL 7-23 H 3769152592) GLUCOSE (test code = 107 mg/dL 70-110 3019894081) CREATININE (test code = 0.88 mg/dL 0.60-1.25 3955667869) TOTAL BILI (test code = 1.6 mg/dL 0.1-1.1 H 2090335689) CALCIUM (test code = 8.9 mg/dL 8.6-10.6 5853228246) T PROTEIN (test code = 6.1 g/dL 6.3-8.2 L 3590665988) ALBUMIN (test code = 3.7 g/dL 3.5-5.0 7866275576) ALK PHOS (test code = 56 U/L 34-122 9375546451) ALTv (test code = 14 U/L 5-50 1742-6) AST(SGOT) (test code = 12 U/L 13-40 L 9250973549) eGFR (test code = 87.2 mL/min/1.73m2 0543630169) OMAYRA (test code = OMAYRA) Association of [...] tests). Lab Interpretation Abnormal (test code = 17407-8) [facility] 21:[facility]57 Test Item Value Reference Range Interpretation Comments MAGNESIUM (test code = 8660757343) 2.0 mg/dL 1.7-2.4 Lab Interpretation (test code = Normal 09101-0) [facility] WITH [id number] 20:53:39 Test Item Value Reference Range Interpretation [...] RDW-SD (test code = 50.1 fL 38.5-51.6 91328-9) RDW-CV (test code = 13.6 % 12.1-15.4 788-0) PLT (test code = 223 See_Comment [Automated 777-3) message] The sy stem which generated this result transmitted reference range : 150 - 328 10*3/ ?L. The reference r pasquale was not used to interpret this result as normal/abnormal . MPV (test code = 12.1 fL 9.8-13.0 14311-7) NRBC/100 WBC (test 0.0 See_Comment [Automat ed code = 8152169430) message] The system which generated this result transmitted reference range : 0.0 - 10.0 /100 WBCs. The refer ence range was not u sed to interpret th is result as normal/abnormal . NRBC x10^3 (test code See_Comment [Auto mated = 5847741756) message] The s ystem which generated this result transmitted reference range : 10*3/?L. The reference range was not used to interpret this result as normal/abnormal . GRAN MAT (NEUT) % 72.8 % (test code = 770-8) IMM GRAN % (test code 0.90 % = 7943308596) LYMPH % (test code = 17.7 % 736-9) MONO % (test code = 7.4 % 5905-5) EOS % (test code = 0.9 % 713-8) BASO % (test code = 0.3 % 706-2) GRAN MAT x10^3(ANC) 6.57 10*3/uL 1.99-6.95 (test code = 7938066707) IMM GRAN x10^3 (test 0.08 10*3/uL 0.00-0.06 H code = 7417132562) LYMPH x10^3 (test code 1.60 10*3/uL 1.09-3.23 = 731-0) MONO x10^3 (test code 0.67 10*3/uL 0.36-1.02 = 742-7) EOS x10^3 (test code = 0.08 10*3/uL 0.06-0.53 711-2) BASO x10^3 (test code 0.03 10*3/uL 0.01-0.09 = 704-7) Lab Interpretation Abnormal (test code = 96279-9) [facility] + LACTIC [id number] 20:11:20 Test Item Value Reference Range Interpretation Comments PH (test code = 7.33 7.32-7.42 1024193835) PCO2 ERVIN (test code = 75 See_Comment H [Auto mated 2843983364) message] The sy stem which generated this result transmitted reference range : 41 - 51 mmHg. The reference range was not used to interpret this result as normal/abnormal . PO2 ERVIN (test code = 20 See_Comment L [Autom ated 4500932597) message] The sy stem which generated this result transmitted reference range : 25 - 40 mmHg. The reference range was not used to interpret this result as normal/abnormal . HCO3 ERVIN (test code = 39 See_Comment H [Auto mated 6097772693) message] The sy stem which generated this result transmitted reference range : 24 - 28 mEq/L. The reference range was not used to interpret this result as normal/abnormal . AC VBE(BEAKER) (test 9.1 mEq/L code = 9732821319) THB ERVIN (test code = 15.9 g/dL 13.5-18.0 3430146925) %O2HB ERVIN (test code = 30.0 % 52.0-63.0 L 8289963100) %COHB ERVIN (test code = 4.1 % 0.0-1.5 H 9507598506) %METHB ERVIN (test code = 0.3 % 0.4-1.5 L 2812731726) VOL%O2 ERVIN (test code = 6.7 % 6.0-12.0 3290722116) NA (test code = 137 mmol/L 135-145 4563239178) K+ (test code = 4.5 mmol/L 3.5-5.0 9496268832) AC CA IONZ (test code = 4.60 mg/dL 4.50-5.30 9323924006) GLUCOSE (test code = 113 mg/dL 70-110 H 2232133609) LACTIC ACID (test code 1.65 mmol/L 0.50-2.20 = 6633810716) Lab Interpretation Abnormal (test code = 55188-3) [facility] [id number] 21:20:05 Test Item Value Reference Range Interpretation Comments TROPONIN I (test code = 0.005 ng/mL <=0.034 9055966834) OMAYRA (test code = OMAYRA) Reference (Normal) [...] biotin. Lab Interpretation Normal (test code = 95351-7) [facility] [id number] 21:17:24 Test Item Value Reference Range Interpretation Comments NT-proBNP (test code = 712 pg/mL <=125 H 4565087564) OMAYRA (test code = OMAYRA) Biotin has been reported to cause a negative bias, interpret results relative to patient's use of biotin. Lab Interpretation (test Abnormal code = 14115-0) [facility]2023-[facility]-15 21:13:47 ALCOHOL<10mg/dL01/31/2023 4:13 PM [facility]<10 Dypksawo73-800 Toxic>100 Depression of LAB ANIMAL TECHNOLOGIST>400 Fatalities ReportedUnH[facility] MainlandCOMP. METABOLIC PANEL (57138) 2023-01-31 21:10:01 Test Item Value Reference Range Interpretation Comments NA (test code = 142 mmol/L 135-145 0677041105) K (test code = 4.7 mmol/L 3.5-5.0 3080172397) CL (test code = 99 mmol/L 98-108 6399112421) CO2 TOTAL (test code = 37 mmol/L 23-31 H 2141968006) AGAP (test code = 6 2-16 3975150600) BUN (test code = 30 mg/dL 7-23 H 4745115629) GLUCOSE (test code = 100 mg/dL 70-110 3763429377) CREATININE (test code = 0.61 mg/dL 0.60-1.25 7098020018) TOTAL BILI (test code = 0.6 mg/dL 0.1-1.0 4516810236) CALCIUM (test code = 8.8 mg/dL 8.6-10.6 1896168647) T PROTEIN (test code = 5.9 g/dL 6.3-8.2 L 7511817725) ALBUMIN (test code = 3.5 g/dL 3.5-5.0 2437287017) ALK PHOS (test code = 42 U/L 34-122 3440837760) ALTv (test code = 16 U/L 5-50 1742-6) AST(SGOT) (test code = 12 U/L 13-40 L 6144943431) eGFR (test code = 133.1 mL/min/1.73m2 0537292838) OMAYRA (test code = OMAYRA) Association of [...] tests). Lab Interpretation Abnormal (test code = 44548-7) [facility] WITH [id number] 20:59:58 Test Item Value Reference Range Interpretation Comments WBC (test code = 13.02 See_Comment H [Automated 4990-2) message] The system which generated this result transmit anirudh reference range : 4.20 - 10.70 10*3/?L. The reference range was not used to interpret this result as normal/abnormal . RBC (test code = 4.09 See_Comment L [Automated 919-8) message] The system which generated this result [...] (test code = 61.6 fL 38.5-51.6 H 90356-6) RDW-CV (test code = 16.2 % 12.1-15.4 H 788-0) PLT (test code = 250 See_Comment [Automated 777-3) message] The system which generated this result transmit anirudh reference range : 150 - 328 10*3/ ?L. The reference range was not u sed to interpret th is result as normal/abnormal . MPV (test code = 10.5 fL 9.8-13.0 64834-0) NRBC/100 WBC (test 0.0 See_Comment [Automat ed code = 7619369880) message] The system which generated this result transmit anirudh reference range : 0.0 - 10.0 /100 WBCs. The reference range was not used to interpret this result as normal/abnormal . NRBC x10^3 (test code See_Comment [Auto mated = 2379092204) message] The system which generated this result transmit anirudh reference range : 10*3/?L. The reference range was not used to interpret this result as normal/abnormal . GRAN MAT (NEUT) % 90.9 % (test code = 770-8) IMM GRAN % (test code 1.20 % = 1871181964) LYMPH % (test code = 3.9 % 736-9) MONO % (test code = 3.8 % 5905-5) EOS % (test code = 0.0 % 713-8) BASO % (test code = 0.2 % 706-2) GRAN MAT x10^3(ANC) 11.83 10*3/uL 1.99-6.95 H (test code = 2713623952) IMM GRAN x10^3 (test 0.16 10*3/uL 0.00-0.06 H code = 2836087989) LYMPH x10^3 (test code 0.51 10*3/uL 1.09-3.23 L = 731-0) MONO x10^3 (test code 0.49 10*3/uL 0.36-1.02 = 742-7) EOS x10^3 (test code = 0.06-0.53 L 711-2) BASO x10^3 (test code 0.03 10*3/uL 0.01-0.09 = 704-7) Lab Interpretation Abnormal (test code = 47202-2) [id number] 11:16:36 Test Item Value Reference Range Interpretation Comments TROPONIN I (test code = 0.002 ng/mL <=0.034 0762803045) OMAYRA (test code = OMAYRA) Reference (Normal) [...] biotin. Lab Interpretation Normal (test code = 08670-4) [facility] [id number] 11:13:18 Test Item Value Reference Range Interpretation Comments NT-proBNP (test code = 112 pg/mL <=125 8102110278) OMAYRA (test code = OMAYRA) Biotin has been reported to cause a negative bias, interpret results relative to patient's use of biotin. Lab Interpretation (test Normal code = 33609-0) [facility]OLIC PAN[facility] (NA, K, CL, CO2, GLUCOSE, BUN, CREATININE, CA)2023-01-27 11:04:56 Test Item Value Reference Range Interpretation Comments NA (test code = 136 mmol/L 135-145 3450998873) K (test code = 4.1 mmol/L 3.5-5.0 6214544907) CL (test code = 96 mmol/L 98-108 L 1253189683) CO2 TOTAL (test code = 34 mmol/L 23-31 H 6881537977) AGAP (test code = 6 2-16 6703134184) BUN (test code = 22 mg/dL 7-23 1578573743) GLUCOSE (test code = 117 mg/dL 70-110 H 6152735871) CREATININE (test code = 0.55 mg/dL 0.60-1.25 L 8540182439) CALCIUM (test code = 8.4 mg/dL 8.6-10.6 L 6901005974) eGFR (test code = 150.0 mL/min/1.73m2 0166152059) OMAYRA (test code = OMAYRA) Association of [...] tests). Lab Interpretation Abnormal (test code = 57177-2) [facility] WITH [id number] 10:38:33 Test Item Value Reference Range Interpretation [...] (test code = 56.7 fL 38.5-51.6 H 14766-1) RDW-CV (test code = 15.3 % 12.1-15.4 788-0) PLT (test code = 220 See_Comment [Automated 777-3) message] The sy stem which generated this result transmitted reference range : 150 - 328 10*3/ ?L. The reference r pasquale was not used to interpret this result as normal/abnormal . MPV (test code = 10.6 fL 9.8-13.0 93884-6) NRBC/100 WBC (test 0.0 See_Comment [Automat ed code = 2057673122) message] The system which generated this result transmitted reference range : 0.0 - 10.0 /100 WBCs. The refer ence range was not u sed to interpret th is result as normal/abnormal . NRBC x10^3 (test code See_Comment [Auto mated = 2437660787) message] The s ystem which generated this result transmitted reference range : 10*3/?L. The reference range was not used to interpret this result as normal/abnormal . GRAN MAT (NEUT) % 60.0 % (test code = 770-8) IMM GRAN % (test code 0.70 % = 7104931412) LYMPH % (test code = 26.5 % 736-9) MONO % (test code = 11.4 % 5905-5) EOS % (test code = 0.9 % 713-8) BASO % (test code = 0.5 % 706-2) GRAN MAT x10^3(ANC) 5.73 10*3/uL 1.99-6.95 (test code = 4877245856) IMM GRAN x10^3 (test 0.07 10*3/uL 0.00-0.06 H code = 5454062228) LYMPH x10^3 (test code 2.53 10*3/uL 1.09-3.23 = 731-0) MONO x10^3 (test code 1.09 10*3/uL 0.36-1.02 H = 742-7) EOS x10^3 (test code = 0.09 10*3/uL 0.06-0.53 711-2) BASO x10^3 (test code 0.05 10*3/uL 0.01-0.09 = 704-7) Lab Interpretation Abnormal (test code = 55412-7) [facility], [id number] 18:51:59 Test Item Value Reference Range Interpretation Comments AMMONIA (test code = 1043306778) 9-33 L Lab Interpretation (test code = Abnormal 22934-2) [facility] ABG + LACTIC [id number] 18:40:53 Test Item Value Reference Range Interpretation Comments PH (test code = 2) 7.43 7.35-7.45 PCO2 (test code = 53 See_Comment H [Automate d 3312998656) message] The sy stem which generated this result transmitted reference range : 35 - 45 mmHg. The reference range was not used to interpret this result as normal/abnormal . PO2 (test code = 49 See_Comment L [Automated 0399000043) message] The sy stem which generated this result transmitted reference range : 80 - 100 mmHg. The reference range was not used to interpret this result as normal/abnormal . HCO3 (test code = 34 See_Comment H [Automate d 5478338252) message] The sy stem which generated this result transmitted reference range : 22 - 26 mEq/L. The reference range was not used to interpret this result as normal/abnormal . BE (test code = 7.8 See_Comment H [Automated 3418416962) message] The sy stem which generated this result transmitted reference range : -3.0 - 3.0 mEq/ L. The reference r pasquale was not used to interpret this result as normal/abnormal . LACTIC ACID (test code 0.92 mmol/L 0.50-2.20 = 1878189118) Lab Interpretation Abnormal (test code = 48386-6) [facility]man[facility]rop[facility] [id number] 18:28:26 Test Item Value Reference Range Interpretation Comments TROPONIN I (test code = 0.003 ng/mL <=0.034 6422083404) OMAYRA (test code = OMAYRA) Reference (Normal) [...] biotin. Lab Interpretation Normal (test code = 55147-3) [facility] [id number] 18:25:29 Test Item Value Reference Range Interpretation Comments NT-proBNP (test code = 376 pg/mL <=125 H 9943620139) OMAYRA (test code = OMAYRA) Biotin has been reported to cause a negative bias, interpret results relative to patient's use of biotin. Lab Interpretation (test Abnormal code = 82742-1) [facility] Met[facility] (75819)2023-01-24 18:24:03 Test Item Value Reference Range Interpretation Comments NA (test code = 135 mmol/L 135-145 9927376849) K (test code = 4.0 mmol/L 3.5-5.0 3296410026) CL (test code = 90 mmol/L 98-108 L 5322566892) CO2 TOTAL (test code = 43 mmol/L 23-31 H 7830247790) AGAP (test code = 2 2-16 3577854574) BUN (test code = 12 mg/dL 7-23 0623080489) GLUCOSE (test code = 92 mg/dL 70-110 8610878975) CREATININE (test code = 0.58 mg/dL 0.60-1.25 L 1896542678) TOTAL BILI (test code = 1.3 mg/dL 0.1-1.1 H 4450380734) CALCIUM (test code = 8.6 mg/dL 8.6-10.6 4812756652) T PROTEIN (test code = 6.0 g/dL 6.3-8.2 L 8984575958) ALBUMIN (test code = 3.6 g/dL 3.5-5.0 2233737432) ALK PHOS (test code = 52 U/L 34-122 8129369925) ALTv (test code = 17 U/L 5-50 1742-6) AST(SGOT) (test code = 10 U/L 13-40 L 0426161583) eGFR (test code = 141.1 mL/min/1.73m2 0623805628) OMAYRA (test code = OMAYRA) Association of [...] tests). Lab Interpretation Abnormal (test code = 01164-3) [facility]23-[facility]-08 18:23:38 ALCOHOL<10mg/dL01/24/2023 1:23 PM [facility] Ubmftnrw40-989 Toxic>100 Depression of LAB ANIMAL TECHNOLOGIST>400 Fatalities ReportedUnHCA [facility] MainlandCBC with [id number] 18:09:00 Test Item Value Reference Range Interpretation Comments WBC (test code = 7.84 See_Comment [Automated 5606-2) message] The sy stem which generated this result transmitted reference range : 4.20 - 10.70 10*3/?L. The reference range was not used to interpret this result as normal/abnormal . RBC (test code = 4.46 See_Comment [Automated 302-8) message] The sy stem which generated this [...] (test code = 59.7 fL 38.5-51.6 H 99682-6) RDW-CV (test code = 15.8 % 12.1-15.4 H 788-0) PLT (test code = 239 See_Comment [Automated 777-3) message] The sy stem which generated this result transmitted reference range : 150 - 328 10*3/ ?L. The reference r pasquale was not used to interpret this result as normal/abnormal . MPV (test code = 10.5 fL 9.8-13.0 66579-5) NRBC/100 WBC (test 0.0 See_Comment [Automat ed code = 3816034854) message] The system which generated this result transmitted reference range : 0.0 - 10.0 /100 WBCs. The refer ence range was not u sed to interpret th is result as normal/abnormal . NRBC x10^3 (test code See_Comment [Auto mated = [id number]) message] The s ystem which generated this result transmitted reference range : 10*3/?L. The reference range was not used to interpret this result as normal/abnormal . GRAN MAT (NEUT) % 64.5 % (test code = 770-8) IMM GRAN % (test code 0.40 % = [id number]) LYMPH % (test code = 23.1 % 736-9) MONO % (test code = 9.8 % 5905-5) EOS % (test code = 1.8 % 713-8) BASO % (test code = 0.4 % 706-2) GRAN MAT x10^3(ANC) 5.06 10*3/uL 1.99-6.95 (test code = 7521350674) IMM GRAN x10^3 (test 0.03 10*3/uL 0.00-0.06 code = [id number]) LYMPH x10^3 (test code 1.81 10*3/uL 1.09-3.23 = 731-0) MONO x10^3 (test code 0.77 10*3/uL 0.36-1.02 = 742-7) EOS x10^3 (test code = 0.14 10*3/uL 0.06-0.53 711-2) BASO x10^3 (test code 0.03 10*3/uL 0.01-0.09 = 704-7) Lab Interpretation Abnormal (test code = 17817-2) [facility]. METABOLIC PANEL (43321)2023-01-21 21:33:50 Test Item Value Reference Range Interpretation Comments NA (test code = 136 mmol/L 135-145 [id number]) K (test code = 4.3 mmol/L 3.5-5.0 4815048435) CL (test code = 95 mmol/L 98-108 L 3137496224) CO2 TOTAL (test code = 38 mmol/L 23-31 H 7618145566) AGAP (test code = 3 2-16 6138668934) BUN (test code = 17 mg/dL 7-23 5715099634) GLUCOSE (test code = 102 mg/dL 70-110 6603825257) CREATININE (test code = 0.62 mg/dL 0.60-1.25 9619441270) TOTAL BILI (test code = 0.8 mg/dL 0.1-1.5 8146131930) CALCIUM (test code = 7.8 mg/dL 8.6-10.6 L 8047106781) T PROTEIN (test code = 4.9 g/dL 6.3-8.2 L 3265850170) ALBUMIN (test code = 3.0 g/dL 3.5-5.0 L 7708338691) ALK PHOS (test code = 45 U/L 34-122 9957395655) ALTv (test code = 13 U/L 5-50 1742-6) AST(SGOT) (test code = 11 U/L 13-40 L 2694110768) eGFR (test code = 130.6 mL/min/1.73m2 5664100276) OMAYRA (test code = OMAYRA) Association of [...] tests). Lab Interpretation Abnormal (test code = 62920-8) [id number] 21:11:45 Test Item Value Reference Range Interpretation Comments TROPONIN I (test code = 0.019 ng/mL <=0.034 6349608391) OMAYRA (test code = OMAYRA) Reference (Normal) [...] biotin. Lab Interpretation Normal (test code = 95245-8) [facility] [id number] 21:08:47 Test Item Value Reference Range Interpretation Comments NT-proBNP (test code = 266 pg/mL <=125 H Hemol yzed 4537251922) specimen OMAYRA (test code = OMAYRA) Biotin has been reported to cause a negative bias, interpret results relative to patient's use of biotin. Lab Interpretation Abnormal (test code = 30608-8) [facility] WITH [id number] 20:40:24 Test Item Value Reference Range Interpretation [...] (test code = 60.4 fL 38.5-51.6 H 77197-9) RDW-CV (test code = 16.2 % 12.1-15.4 H 788-0) PLT (test code = 215 See_Comment [Automated 777-3) message] The sy stem which generated this result transmitted reference range : 150 - 328 10*3/ ?L. The reference r pasquale was not used to interpret this result as normal/abnormal . MPV (test code = 10.9 fL 9.8-13.0 59275-0) NRBC/100 WBC (test 0.0 See_Comment [Automat ed code = 1655157954) message] The system which generated this result transmitted reference range : 0.0 - 10.0 /100 WBCs. The refer ence range was not u sed to interpret th is result as normal/abnormal . NRBC x10^3 (test code See_Comment [Auto mated = 3887162485) message] The s ystem which generated this result transmitted reference range : 10*3/?L. The reference range was not used to interpret this result as normal/abnormal . GRAN MAT (NEUT) % 75.4 % (test code = 770-8) IMM GRAN % (test code 0.40 % = 4610265277) LYMPH % (test code = 15.3 % 736-9) MONO % (test code = 7.7 % 5905-5) EOS % (test code = 0.9 % 713-8) BASO % (test code = 0.3 % 706-2) GRAN MAT x10^3(ANC) 5.11 10*3/uL 1.99-6.95 (test code = 2958229082) IMM GRAN x10^3 (test 0.03 10*3/uL 0.00-0.06 code = 0031392323) LYMPH x10^3 (test code 1.04 10*3/uL 1.09-3.23 L = 731-0) MONO x10^3 (test code 0.52 10*3/uL 0.36-1.02 = 742-7) EOS x10^3 (test code = 0.06 10*3/uL 0.06-0.53 711-2) BASO x10^3 (test code 0.01-0.09 = 704-7) Lab Interpretation Abnormal (test code = 40033-6) [facility] Nan-[id number] 08:49:53 Test Item Value Reference Range Interpretation Comments NT-proBNP (test code = 158 pg/mL <=125 H 7427487915) OMAYRA (test code = OMAYRA) Biotin has been reported to cause a negative bias, interpret results relative to patient's use of biotin. Lab Interpretation (test Abnormal code = 44781-6) [facility]-Sgwop4732-30-14 08:44:10 Test Item Value Reference Interpretation Comments Range D-DIMER (test code = See_Comment [Autom ated 8454929710) message] The system which generated this result [...] diagnosis. Lab Interpretation Normal (test code = 55075-6) [facility] METABOLIC PANEL (NA, K, CL, CO2, GLUCOSE, BUN, CREATININE, CA)2023-01-19 08:41:13 Test Item Value Reference Range Interpretation Comments NA (test code = 134 mmol/L 135-145 L 9105409774) K (test code = 5.3 mmol/L 3.5-5.0 H 6847189187) CL (test code = 91 mmol/L 98-108 L 4180842972) CO2 TOTAL (test code = 40 mmol/L 23-31 H 9091892331) AGAP (test code = 3 2-16 1567342549) BUN (test code = 14 mg/dL 7-23 2819940492) GLUCOSE (test code = 125 mg/dL 70-110 H 8924753990) CREATININE (test code = 0.64 mg/dL 0.60-1.25 3124570112) CALCIUM (test code = 8.5 mg/dL 8.6-10.6 L 2446106147) eGFR (test code = 125.9 mL/min/1.73m2 6803065168) OMAYRA (test code = OMAYRA) Association of [...] tests). Lab Interpretation Abnormal (test code = 77126-7) [facility] WITH [id number] 08:27:33 Test Item Value Reference Range Interpretation Comments WBC (test code = 10.04 See_Comment [Automated 1987-2) message] The sy stem which generated this result transmitted reference range : 4.20 - 10.70 10*3/?L. The reference range was not used to interpret this result as normal/abnormal . RBC (test code = 4.35 See_Comment [Automated 277-8) message] The sy stem which generated this [...] (test code = 58.4 fL 38.5-51.6 H 03106-9) RDW-CV (test code = 15.9 % 12.1-15.4 H 788-0) PLT (test code = 211 See_Comment [Automated 087-3) message] The sy stem which generated this result transmitted reference range : 150 - 328 10*3/ ?L. The reference r pasquale was not used to interpret this result as normal/abnormal . MPV (test code = 10.2 fL 9.8-13.0 07756-0) NRBC/100 WBC (test 0.0 See_Comment [Automat ed code = 9565093618) message] The system which generated this result transmitted reference range : 0.0 - 10.0 /100 WBCs. The refer ence range was not u sed to interpret th is result as normal/abnormal . NRBC x10^3 (test code See_Comment [Auto mated = 2642426058) message] The s ystem which generated this result transmitted reference range : 10*3/?L. The reference range was not used to interpret this result as normal/abnormal . GRAN MAT (NEUT) % 81.2 % (test code = 770-8) IMM GRAN % (test code 0.50 % = 9671734683) LYMPH % (test code = 10.1 % 736-9) MONO % (test code = 7.5 % 5905-5) EOS % (test code = 0.5 % 713-8) BASO % (test code = 0.2 % 706-2) GRAN MAT x10^3(ANC) 8.16 10*3/uL 1.99-6.95 H (test code = 0999287796) IMM GRAN x10^3 (test 0.05 10*3/uL 0.00-0.06 code = 1731350709) LYMPH x10^3 (test code 1.01 10*3/uL 1.09-3.23 L = 731-0) MONO x10^3 (test code 0.75 10*3/uL 0.36-1.02 = 742-7) EOS x10^3 (test code = 0.05 10*3/uL 0.06-0.53 L 711-2) BASO x10^3 (test code 0.01-0.09 = 704-7) Lab Interpretation Abnormal (test code = 04443-9) [facility] [id number] 12:09:33 Test Item Value Reference Range Interpretation Comments TROPONIN I (test code = 0.004 ng/mL <=0.034 9047329935) OMAYRA (test code = OMAYRA) Reference (Normal) [...] biotin. Lab Interpretation Normal (test code = 90777-6) [facility] [id number] 12:06:16 Test Item Value Reference Range Interpretation Comments NT-proBNP (test code = 135 pg/mL <=125 H 0343705362) OMAYRA (test code = OMAYRA) Biotin has been reported to cause a negative bias, interpret results relative to patient's use of biotin. Lab Interpretation (test Abnormal code = 98094-3) [facility]. Metabolic Panel (51576)2023-01-17 11:57:36 Test Item Value Reference Range Interpretation Comments NA (test code = 133 mmol/L 135-145 L 7213015892) K (test code = 5.0 mmol/L 3.5-5.0 1793028745) CL (test code = 91 mmol/L 98-108 L 4981264793) CO2 TOTAL (test code = 33 mmol/L 23-31 H 6742107897) AGAP (test code = 9 2-16 7774732650) BUN (test code = 10 mg/dL 7-23 9586679080) GLUCOSE (test code = 104 mg/dL 70-110 7000725038) CREATININE (test code = 0.63 mg/dL 0.60-1.25 6634140721) TOTAL BILI (test code = 1.2 mg/dL 0.1-1.1 H 0350244640) CALCIUM (test code = 9.0 mg/dL 8.6-10.6 9333678276) T PROTEIN (test code = 6.9 g/dL 6.3-8.2 2762677897) ALBUMIN (test code = 4.4 g/dL 3.5-5.0 6884952649) ALK PHOS (test code = 76 U/L 34-122 3036261012) ALTv (test code = 13 U/L 5-50 2-6) AST(SGOT) (test code = 13 U/L 13-40 8090494466) eGFR (test code = 128.2 mL/min/1.73m2 2864665868) OMAYRA (test code = OMAYRA) Association of [...] tests). Lab Interpretation Abnormal (test code = 31384-8) [facility] with [id number] 11:30:52 Test Item Value Reference Range Interpretation Comments WBC (test code = 9.66 See_Comment [Automated 6790-2) message] The sy stem which generated this [...] (test code = 56.6 fL 38.5-51.6 H 24369-7) RDW-CV (test code = 15.4 % 12.1-15.4 788-0) PLT (test code = 261 See_Comment [Automated 777-3) message] The sy stem which generated this result transmitted reference range : 150 - 328 10*3/ ?L. The reference r pasquale was not used to interpret this result as normal/abnormal . MPV (test code = 10.4 fL 9.8-13.0 96992-5) NRBC/100 WBC (test 0.0 See_Comment [Automat ed code = 6875365475) message] The system which generated this result transmitted reference range : 0.0 - 10.0 /100 WBCs. The refer ence range was not u sed to interpret th is result as normal/abnormal . NRBC x10^3 (test code See_Comment [Auto mated = 0804665195) message] The s ystem which generated this result transmitted reference range : 10*3/?L. The reference range was not used to interpret this result as normal/abnormal . GRAN MAT (NEUT) % 58.9 % (test code = 770-8) IMM GRAN % (test code 0.40 % = 8273410866) LYMPH % (test code = 28.6 % 736-9) MONO % (test code = 10.5 % 5905-5) EOS % (test code = 0.9 % 713-8) BASO % (test code = 0.7 % 706-2) GRAN MAT x10^3(ANC) 5.69 10*3/uL 1.99-6.95 (test code = 6894393965) IMM GRAN x10^3 (test 0.04 10*3/uL 0.00-0.06 code = 4469555953) LYMPH x10^3 (test code 2.76 10*3/uL 1.09-3.23 = 731-0) MONO x10^3 (test code 1.01 10*3/uL 0.36-1.02 = 742-7) EOS x10^3 (test code = 0.09 10*3/uL 0.06-0.53 711-2) BASO x10^3 (test code 0.07 10*3/uL 0.01-0.09 = 704-7) Lab Interpretation Abnormal (test code = 13474-5) [facility] [id number] 10:20:57 Test Item Value Reference Range Interpretation Comments NT-proBNP (test code = 473 pg/mL <=125 H 5838309201) OMAYRA (test code = OMAYRA) Biotin has been reported to cause a negative bias, interpret results relative to patient's use of biotin. Lab Interpretation (test Abnormal code = 04509-0) [facility]manLIPID PANEL (53786)(TOTAL CHOLESTEROL, TRIGLYCERIDES, HDL)2022-12-12 10:18:39 Test Item Value Reference Range Interpretation Comments CHOL (test code = 3271139455) 133 mg/dL 120-200 HDL (test code = 3093160713) 38 mg/dL >=40 L HDLC RATIO (test code = 4667967670) 3.5 <=5.0 TRIG (test code = 8604612319) 57 mg/dL 30-170 LDL CHOL (test code = 61110-0) 84 mg/dL <=160 VLDL (test code = 7755243400) 11 mg/dL 5-60 Lab Interpretation (test code = Abnormal 53374-4) [facility]2023-03-26 10:18:19 Test Item Value Reference Range Interpretation Comments MAGNESIUM (test code = 6658972313) 2.0 mg/dL 1.7-2.4 Lab Interpretation (test code = Normal 84303-9) [facility] METABOLIC PANEL (NA, K, CL, CO2, GLUCOSE, BUN, CREATININE, CA)2022-12-12 10:18:14 Test Item Value Reference Range Interpretation Comments NA (test code = 130 mmol/L 135-145 L 5256217920) K (test code = 3.7 mmol/L 3.5-5.0 9574174468) CL (test code = 89 mmol/L 98-108 L 1193346748) CO2 TOTAL (test code = 37 mmol/L 23-31 H 6915160804) AGAP (test code = 4 2-16 8528846898) BUN (test code = 13 mg/dL 7-23 3888263062) GLUCOSE (test code = 120 mg/dL 70-110 H 4814582442) CREATININE (test code = 0.56 mg/dL 0.60-1.25 L 2965895556) CALCIUM (test code = 8.3 mg/dL 8.6-10.6 L 7523513286) eGFR (test code = 146.9 mL/min/1.73m2 5339006718) OMAYRA (test code = OMAYRA) Association of [...] tests). Lab Interpretation Abnormal (test code = 89510-7) [facility]ETHANOL2023-[facility]-25 00:54:58 ALCOHOL<10mg/dL12/10/2022 7:54 PM [facility]<10 Atujcmcf65-572 Toxic>100 Depression of LAB ANIMAL TECHNOLOGIST>400 Fatal[facility] ReportedUnH[facility]landTROPONIN [id number] 00:50:14 Test Item Value Reference Range Interpretation Comments TROPONIN I (test code = 0.006 ng/mL <=0.034 6726023914) OMAYRA (test code = OMAYRA) Reference (Normal) [...] biotin. Lab Interpretation Normal (test code = 74319-0) [facility] [id number] 00:47:12 Test Item Value Reference Range Interpretation Comments NT-proBNP (test code = 291 pg/mL <=125 H 7341769173) OMAYRA (test code = OMAYRA) Biotin has been reported to cause a negative bias, interpret results relative to patient's use of biotin. Lab Interpretation (test Abnormal code = 67968-4) [facility]COMP[facility] METABOLIC PANEL (38965)2022-12-11 00:41:12 Test Item Value Reference Range Interpretation Comments NA (test code = 126 mmol/L 135-145 L 6280009832) K (test code = 4.0 mmol/L 3.5-5.0 4962772474) CL (test code = 82 mmol/L 98-108 L 0759255763) CO2 TOTAL (test code = 40 mmol/L 23-31 H 1151397071) AGAP (test code = 4 2-16 9996400045) BUN (test code = 16 mg/dL 7-23 0548688919) GLUCOSE (test code = 97 mg/dL 70-110 0017433864) CREATININE (test code = 0.67 mg/dL 0.60-1.25 5062066476) TOTAL BILI (test code = 0.8 mg/dL 0.1-1.1 2006826859) CALCIUM (test code = 8.5 mg/dL 8.6-10.6 L 0635405484) T PROTEIN (test code = 5.9 g/dL 6.3-8.2 L 8496055448) ALBUMIN (test code = 3.5 g/dL 3.5-5.0 2680766714) ALK PHOS (test code = 49 U/L 34-122 1086176771) ALTv (test code = 18 U/L 5-50 1742-6) AST(SGOT) (test code = 11 U/L 13-40 L 7496553929) eGFR (test code = 119.4 mL/min/1.73m2 9626613136) OMAYRA (test code = OMAYRA) Association of [...] tests). Lab Interpretation Abnormal (test code = 66957-8) [facility] WITH [id number] 00:29:08 Test Item Value Reference Range Interpretation Comments WBC (test code = 10.15 See_Comment [Automated 8882-2) message] The sy stem which generated this result transmitted reference range : 4.20 - 10.70 10*3/?L. The reference range was not used to interpret this result as normal/abnormal . RBC (test code = 4.52 See_Comment [Automated 912-8) message] The sy stem which generated this [...] RDW-SD (test code = 46.7 fL 38.5-51.6 69339-6) RDW-CV (test code = 13.6 % 12.1-15.4 788-0) PLT (test code = 263 See_Comment [Automated 657-3) message] The sy stem which generated this result transmitted reference range : 150 - 328 10*3/ ?L. The reference r pasquale was not used to interpret this result as normal/abnormal . MPV (test code = 9.7 fL 9.8-13.0 L 49946-5) NRBC/100 WBC (test 0.0 See_Comment [Automat ed code = 8955065002) message] The system which generated this result transmitted reference range : 0.0 - 10.0 /100 WBCs. The refer ence range was not u sed to interpret th is result as normal/abnormal . NRBC x10^3 (test code See_Comment [Auto mated = 4671155626) message] The s ystem which generated this result transmitted reference range : 10*3/?L. The reference range was not used to interpret this result as normal/abnormal . GRAN MAT (NEUT) % 71.6 % (test code = 770-8) IMM GRAN % (test code 0.90 % = 8270656534) LYMPH % (test code = 17.6 % 736-9) MONO % (test code = 8.7 % 5905-5) EOS % (test code = 1.0 % 713-8) BASO % (test code = 0.2 % 706-2) GRAN MAT x10^3(ANC) 7.27 10*3/uL 1.99-6.95 H (test code = 8162797329) IMM GRAN x10^3 (test 0.09 10*3/uL 0.00-0.06 H code = 6040395395) LYMPH x10^3 (test code 1.79 10*3/uL 1.09-3.23 = 731-0) MONO x10^3 (test code 0.88 10*3/uL 0.36-1.02 = 742-7) EOS x10^3 (test code = 0.10 10*3/uL 0.06-0.53 711-2) BASO x10^3 (test code 0.01-0.09 = 704-7) Lab Interpretation Abnormal (test code = 15755-8) [facility]manLactic Acid Whole Wvadu9919-06-16 00:14:48 Test Item Value Reference Range Interpretation Comments LACTIC ACID (test code = 1.30 mmol/L 0.50-2.20 3291456785) Lab Interpretation (test code = Normal 11987-8) [facility] (NA, K, CL, CO2, GLUCOSE, BUN, CREATININE, CA)2022-12-04 11:06:33 Test Item Value Reference Range Interpretation Comments NA (test code = 123 mmol/L 135-145 L 1887160397) K (test code = 3.8 mmol/L 3.5-5.0 9454986472) CL (test code = 86 mmol/L 98-108 L 4339297079) CO2 TOTAL (test code = 36 mmol/L 23-31 H 8517881047) AGAP (test code = 1 2-16 L 7534747195) BUN (test code = 22 mg/dL 7-23 0456819688) GLUCOSE (test code = 195 mg/dL 70-110 H 1792730703) CREATININE (test code = 0.76 mg/dL 0.60-1.25 5207799670) CALCIUM (test code = 8.2 mg/dL 8.6-10.6 L 2806800890) eGFR (test code = 103.3 mL/min/1.73m2 2344208650) OMAYRA (test code = OMAYRA) Association of [...] tests). Lab Interpretation Abnormal (test code = 90078-4) [facility] WITH [id number] 10:54:29 Test Item Value Reference Range Interpretation [...] RDW-SD (test code = 44.1 fL 38.5-51.6 43577-5) RDW-CV (test code = 13.6 % 12.1-15.4 788-0) PLT (test code = 247 See_Comment [Automated 777-3) message] The sy stem which generated this result transmitted reference range : 150 - 328 10*3/ ?L. The reference r pasquale was not used to interpret this result as normal/abnormal . MPV (test code = 9.5 fL 9.8-13.0 L 98338-5) NRBC/100 WBC (test 0.0 See_Comment [Automat ed code = 3556720927) message] The system which generated this result transmitted reference range : 0.0 - 10.0 /100 WBCs. The refer ence range was not u sed to interpret th is result as normal/abnormal . NRBC x10^3 (test code See_Comment [Auto mated = 3529098464) message] The s ystem which generated this result transmitted reference range : 10*3/?L. The reference range was not used to interpret this result as normal/abnormal . GRAN MAT (NEUT) % 93.0 % (test code = 770-8) IMM GRAN % (test code 0.90 % = 7941986082) LYMPH % (test code = 3.2 % 736-9) MONO % (test code = 2.9 % 5905-5) EOS % (test code = 0.0 % 713-8) BASO % (test code = 0.0 % 706-2) GRAN MAT x10^3(ANC) 7.94 10*3/uL 1.99-6.95 H (test code = 3259805921) IMM GRAN x10^3 (test 0.08 10*3/uL 0.00-0.06 H code = 7437162291) LYMPH x10^3 (test code 0.27 10*3/uL 1.09-3.23 L = 731-0) MONO x10^3 (test code 0.25 10*3/uL 0.36-1.02 L = 742-7) EOS x10^3 (test code = 0.06-0.53 L 711-2) BASO x10^3 (test code 0.01-0.09 = 704-7) Lab Interpretation Abnormal (test code = 45089-9) [facility] Metabolic Panel (NA, K, CL, CO2, GLUCOSE, BUN, CREATININE, CA)2022-12-03 10:44:53 Test Item Value Reference Range Interpretation Comments NA (test code = 126 mmol/L 135-145 L 9203698283) K (test code = 4.0 mmol/L 3.5-5.0 Slight 6522147355) hemolysis CL (test code = 89 mmol/L 98-108 L 2294335914) CO2 TOTAL (test code 32 mmol/L 23-31 H = 5296350712) AGAP (test code = 5 2-16 2226698869) BUN (test code = 15 mg/dL 7-23 Slight 7859159150) hemolysis GLUCOSE (test code = 115 mg/dL 70-110 H 3221438358) CREATININE (test code 0.63 mg/dL 0.60-1.25 = 7476740826) CALCIUM (test code = 7.7 mg/dL 8.6-10.6 L 4650317028) eGFR (test code = 128.2 mL/min/1.73m2 6863393192) OMAYRA (test code = OMAYRA) Association of [...] tests). Lab Interpretation Abnormal (test code = 80334-4) [facility]man[facility] [id number] 10:44:53 Test Item Value Reference Range Interpretation Comments MAGNESIUM (test code = 7074469362) 1.6 mg/dL 1.7-2.4 L Lab Interpretation (test code = Abnormal 08226-3) [facility] with Hxbxxtmoggkn0659-57-39 10:39:13 Test Item Value Reference Range Interpretation [...] RDW-SD (test code = 45.4 fL 38.5-51.6 82317-5) RDW-CV (test code = 13.6 % 12.1-15.4 788-0) PLT (test code = 254 See_Comment [Automated 777-3) message] The system which generated this result transmit anirudh reference range : 150 - 328 10*3/ ?L. The reference range was not u sed to interpret th is result as normal/abnormal . MPV (test code = 10.2 fL 9.8-13.0 57667-6) NRBC/100 WBC (test 0.0 See_Comment [Automat ed code = 2915185088) message] The system which generated this result transmit anirudh reference range : 0.0 - 10.0 /100 WBCs. The reference range was not used to interpret this result as normal/abnormal . NRBC x10^3 (test code See_Comment [Auto mated = 9423518056) message] The system which generated this result transmit anirudh reference range : 10*3/?L. The reference range was not used to interpret this result as normal/abnormal . GRAN MAT (NEUT) % 90.0 % (test code = 770-8) IMM GRAN % (test code 0.90 % = 5375171782) LYMPH % (test code = 5.9 % 736-9) MONO % (test code = 2.8 % 5905-5) EOS % (test code = 0.2 % 713-8) BASO % (test code = 0.2 % 706-2) GRAN MAT x10^3(ANC) 10.27 10*3/uL 1.99-6.95 H (test code = 1846539285) IMM GRAN x10^3 (test 0.10 10*3/uL 0.00-0.06 H code = 6711309041) LYMPH x10^3 (test code 0.67 10*3/uL 1.09-3.23 L = 731-0) MONO x10^3 (test code 0.32 10*3/uL 0.36-1.02 L = 742-7) EOS x10^3 (test code = 0.06-0.53 L 711-2) BASO x10^3 (test code 0.01-0.09 = 704-7) Lab Interpretation Abnormal (test code = 28959-2) [facility] METABOLIC PANEL (NA, K, CL, CO2, GLUCOSE, BUN, CREATININE, CA)2022-12-02 06:20:42 Test Item Value Reference Range Interpretation Comments NA (test code = 124 mmol/L 135-145 L 4071302783) K (test code = 4.5 mmol/L 3.5-5.0 7616003054) CL (test code = 78 mmol/L 98-108 L 1518394496) CO2 TOTAL (test code = 37 mmol/L 23-31 H 8788289874) AGAP (test code = 9 2-16 5978476494) BUN (test code = 14 mg/dL 7-23 4226767418) GLUCOSE (test code = 93 mg/dL 70-110 5687409079) CREATININE (test code = 0.71 mg/dL 0.60-1.25 7953835347) CALCIUM (test code = 9.1 mg/dL 8.6-10.6 3676646177) eGFR (test code = 111.7 mL/min/1.73m2 6917787351) OMAYRA (test code = OMAYRA) Association of [...] tests). Lab Interpretation Abnormal (test code = 98388-4) [facility] [id number] 12:22:32 Test Item Value Reference Range Interpretation Comments TROPONIN I (test code = 0.008 ng/mL <=0.034 5679292894) OMAYRA (test code = OMAYRA) Reference (Normal) [...] biotin. Lab Interpretation Normal (test code = 58585-9) [facility] METABOLIC PANEL (NA, K, CL, CO2, GLUCOSE, BUN, CREATININE, CA)2022-12-01 12:11:11 Test Item Value Reference Range Interpretation Comments NA (test code = 124 mmol/L 135-145 L 5991129251) K (test code = 4.2 mmol/L 3.5-5.0 6074963468) CL (test code = 79 mmol/L 98-108 L 9893993070) CO2 TOTAL (test code = 37 mmol/L 23-31 H 9703835704) AGAP (test code = 8 2-16 9318114022) BUN (test code = 16 mg/dL 7-23 7655443565) GLUCOSE (test code = 105 mg/dL 70-110 3105110649) CREATININE (test code = 0.67 mg/dL 0.60-1.25 0463441483) CALCIUM (test code = 8.6 mg/dL 8.6-10.6 9773562999) eGFR (test code = 119.4 mL/min/1.73m2 0479890114) OMAYRA (test code = OMAYRA) Association of [...] tests). Lab Interpretation Abnormal (test code = 81600-6) [facility] WITH [id number] 11:59:32 Test Item Value Reference Range Interpretation Comments WBC (test code = 12.17 See_Comment H [Automated 2690-2) message] The system which generated this result [...] RDW-SD (test code = 43.8 fL 38.5-51.6 22923-4) RDW-CV (test code = 13.2 % 12.1-15.4 788-0) PLT (test code = 208 See_Comment [Automated 777-3) message] The system which generated this result transmit anirudh reference range : 150 - 328 10*3/ ?L. The reference range was not u sed to interpret th is result as normal/abnormal . MPV (test code = 9.8 fL 9.8-13.0 05429-0) NRBC/100 WBC (test 0.0 See_Comment [Automat ed code = [id number]) message] The system which generated this result transmit anirudh reference range : 0.0 - 10.0 /100 WBCs. The reference range was not used to interpret this result as normal/abnormal . NRBC x10^3 (test code See_Comment [Auto mated = [id number]) message] The system which generated this result transmit anirudh reference range : 10*3/?L. The reference range was not used to interpret this result as normal/abnormal . GRAN MAT (NEUT) % 85.9 % (test code = 770-8) IMM GRAN % (test code 0.50 % = [id number]) LYMPH % (test code = 6.8 % 736-9) MONO % (test code = 6.3 % 5905-5) EOS % (test code = 0.3 % 713-8) BASO % (test code = 0.2 % 706-2) GRAN MAT x10^3(ANC) 10.44 10*3/uL 1.99-6.95 H (test code = 6869001970) IMM GRAN x10^3 (test 0.06 10*3/uL 0.00-0.06 code = [id number]) LYMPH x10^3 (test code 0.83 10*3/uL 1.09-3.23 L = 731-0) MONO x10^3 (test code 0.77 10*3/uL 0.36-1.02 = 742-7) EOS x10^3 (test code = 0.04 10*3/uL 0.06-0.53 L 711-2) BASO x10^3 (test code 0.03 10*3/uL 0.01-0.09 = 704-7) Lab Interpretation Abnormal (test code = 13318-9) [facility] METABOLIC PANEL (NA, K, CL, CO2, GLUCOSE, BUN, CREATININE, CA)2022-11-28 17:17:23 Test Item Value Reference Range Interpretation Comments NA (test code = 120 mmol/L 135-145 L [id number]) K (test code = 4.3 mmol/L 3.5-5.0 1482078466) CL (test code = 77 mmol/L 98-108 L 1609673554) CO2 TOTAL (test code = 40 mmol/L 23-31 H 6943229038) AGAP (test code = 3 2-16 0059844068) BUN (test code = 15 mg/dL 7-23 9826078844) GLUCOSE (test code = 151 mg/dL 70-110 H 1399055276) CREATININE (test code = 0.63 mg/dL 0.60-1.25 9449601878) CALCIUM (test code = 8.2 mg/dL 8.6-10.6 L 2249469647) eGFR (test code = 128.2 mL/min/1.73m2 7145408660) OMAYRA (test code = OMAYRA) Association of [...] tests). Lab Interpretation Abnormal (test code = 29794-1) [facility] Test Item Value Reference Range Interpretation Comments MAGNESIUM (test code = 0436631137) 1.6 mg/dL 1.7-2.4 L Lab Interpretation (test code = Abnormal 99793-9) [facility] (NA, K, CL, CO2, GLUCOSE, BUN, CREATININE, CA)2022-11-28 01:29:53 Test Item Value Reference Range Interpretation Comments NA (test code = 120 mmol/L 135-145 L 7803272335) K (test code = 3.9 mmol/L 3.5-5.0 2356659579) CL (test code = 77 mmol/L 98-108 L 7528184787) CO2 TOTAL (test code = 36 mmol/L 23-31 H 3736706463) AGAP (test code = 7 2-16 8477060541) BUN (test code = 17 mg/dL 7-23 1582293527) GLUCOSE (test code = 85 mg/dL 70-110 7984084747) CREATININE (test code = 0.76 mg/dL 0.60-1.25 6400186486) CALCIUM (test code = 8.3 mg/dL 8.6-10.6 L 0458119135) eGFR (test code = 103.3 mL/min/1.73m2 8610949200) OMAYRA (test code = OMAYRA) Association of [...] tests). Lab Interpretation Abnormal (test code = 80509-5) [facility] METABOLIC PANEL (NA, K, CL, CO2, GLUCOSE, BUN, CREATININE, CA)2022-11-27 20:36:26 Test Item Value Reference Range Interpretation Comments NA (test code = 122 mmol/L 135-145 L 3467851102) K (test code = 3.9 mmol/L 3.5-5.0 3880733923) CL (test code = 79 mmol/L 98-108 L 9183892857) CO2 TOTAL (test code = 37 mmol/L 23-31 H 0062335997) AGAP (test code = 6 2-16 4255044185) BUN (test code = 17 mg/dL 7-23 5280080081) GLUCOSE (test code = 113 mg/dL 70-110 H 7444200004) CREATININE (test code = 0.78 mg/dL 0.60-1.25 1031864921) CALCIUM (test code = 7.8 mg/dL 8.6-10.6 L 5919374137) eGFR (test code = 100.2 mL/min/1.73m2 2694335839) OMAYRA (test code = OMAYRA) Association of [...] tests). Lab Interpretation Abnormal (test code = 52015-6) [facility]A1C)2022-11-27 18:21:30 Test Item Value Reference Range Interpretation Comments HGB A1C (test code = 5.9 % 4.0-5.7 H 4548-4) OMAYRA (test code = OMAYRA) Reference RangesNormal: <5.7%Prediabetes: 5.7 - 6.4%Diabetes: > 6.5% Lab Interpretation (test Abnormal code = 64584-1) [facility] [id number] 06:12:58 Test Item Value Reference Range Interpretation Comments TROPONIN I (test code = 0.007 ng/mL <=0.034 7244614562) OMAYRA (test code = OMAYRA) Reference (Normal) [...] biotin. Lab Interpretation Normal (test code = 01104-9) [facility] 06:10:43 ALCOHOL<10mg/dL11/27/2022 12:10 [facility] Urubrgng66-472 Toxic>100 Depression of LAB ANIMAL TECHNOLOGIST>400 Fatalities [facility]UnH[facility] [id number] 06:09:37 Test Item Value Reference Range Interpretation Comments NT-proBNP (test code = 311 pg/mL <=125 H 4184949480) OMAYRA (test code = OMAYRA) Biotin has been reported to cause a negative bias, interpret results relative to patient's use of biotin. Lab Interpretation (test Abnormal code = 08070-4) [facility]. METABOLIC PANEL ([id number])2022-11-27 06:08:02 Test Item Value Reference Range Interpretation Comments NA (test code = 116 mmol/L 135-145 LL 7816455455) K (test code = 4.1 mmol/L 3.5-5.0 6844967865) CL (test code = 75 mmol/L 98-108 L 7150164412) CO2 TOTAL (test code = 34 mmol/L 23-31 H 9751771699) AGAP (test code = 7 2-16 8321965604) BUN (test code = 16 mg/dL 7-23 5579547411) GLUCOSE (test code = 70 mg/dL 70-110 5747801235) CREATININE (test code = 0.62 mg/dL 0.60-1.25 5502677621) TOTAL BILI (test code = 1.2 mg/dL 0.1-1.1 H 0058722561) CALCIUM (test code = 8.1 mg/dL 8.6-10.6 L 0025235293) T PROTEIN (test code = 6.3 g/dL 6.3-8.2 1329215641) ALBUMIN (test code = 3.8 g/dL 3.5-5.0 6885081302) ALK PHOS (test code = 58 U/L 34-122 5779754178) ALTv (test code = 15 U/L 5-50 1742-6) AST(SGOT) (test code = 13 U/L 13-40 1348715211) eGFR (test code = 130.6 mL/min/1.73m2 1851759720) OMAYRA (test code = OMAYRA) Association of [...] tests). Lab Interpretation Abnormal (test code = 22444-0) [facility] WITH [id number] 05:45:18 Test Item Value Reference Range Interpretation Comments WBC (test code = 9.18 See_Comment [Automated 4598-2) message] The sy stem which generated this result transmitted reference range : 4.20 - 10.70 10*3/?L. The reference range was not used to interpret this result as normal/abnormal . RBC (test code = 4.49 See_Comment [Automated 072-8) message] The sy stem which generated this [...] RDW-SD (test code = 40.1 fL 38.5-51.6 90293-0) RDW-CV (test code = 12.6 % 12.1-15.4 788-0) PLT (test code = 216 See_Comment [Automated 777-3) message] The sy stem which generated this result transmitted reference range : 150 - 328 10*3/ ?L. The reference r pasquale was not used to interpret this result as normal/abnormal . MPV (test code = 9.4 fL 9.8-13.0 L 65235-9) NRBC/100 WBC (test 0.0 See_Comment [Automat ed code = 9140388503) message] The system which generated this result transmitted reference range : 0.0 - 10.0 /100 WBCs. The refer ence range was not u sed to interpret th is result as normal/abnormal . NRBC x10^3 (test code See_Comment [Auto mated = 8674952391) message] The s ystem which generated this result transmitted reference range : 10*3/?L. The reference range was not used to interpret this result as normal/abnormal . GRAN MAT (NEUT) % 79.1 % (test code = 770-8) IMM GRAN % (test code 0.90 % = 7989859720) LYMPH % (test code = 11.8 % 736-9) MONO % (test code = 6.8 % 5905-5) EOS % (test code = 1.2 % 713-8) BASO % (test code = 0.2 % 706-2) GRAN MAT x10^3(ANC) 7.27 10*3/uL 1.99-6.95 H (test code = 6312349978) IMM GRAN x10^3 (test 0.08 10*3/uL 0.00-0.06 H code = 1499796747) LYMPH x10^3 (test code 1.08 10*3/uL 1.09-3.23 L = 731-0) MONO x10^3 (test code 0.62 10*3/uL 0.36-1.02 = 742-7) EOS x10^3 (test code = 0.11 10*3/uL 0.06-0.53 711-2) BASO x10^3 (test code 0.01-0.09 = 704-7) Lab Interpretation Abnormal (test code = 45859-2) [facility] [id number] 09:49:54 Test Item Value Reference Range Interpretation Comments NT-proBNP (test code = 294 pg/mL <=125 H 5676522529) OMAYRA (test code = OMAYRA) Biotin has been reported to cause a negative bias, interpret results relative to patient's use of biotin. Lab Interpretation (test Abnormal code = 34971-6) [facility]. METABOLIC PANEL ([id number])2022-11-19 09:41:52 Test Item Value Reference Range Interpretation Comments NA (test code = 120 mmol/L 135-145 L 7768700386) K (test code = 4.4 mmol/L 3.5-5.0 1317812884) CL (test code = 80 mmol/L 98-108 L 0098467313) CO2 TOTAL (test code = 34 mmol/L 23-31 H 2323859954) AGAP (test code = 6 2-16 7838373230) BUN (test code = 10 mg/dL 7-23 1569944852) GLUCOSE (test code = 93 mg/dL 70-110 0997798033) CREATININE (test code = 0.77 mg/dL 0.60-1.25 1227855863) TOTAL BILI (test code = 1.1 mg/dL 0.1-1.6 2272037428) CALCIUM (test code = 8.7 mg/dL 8.6-10.6 4229678337) T PROTEIN (test code = 6.9 g/dL 6.3-8.2 7496820549) ALBUMIN (test code = 4.1 g/dL 3.5-5.0 4835746612) ALK PHOS (test code = 60 U/L 34-122 8428635964) ALTv (test code = 14 U/L 5-50 1742-6) AST(SGOT) (test code = 13 U/L 13-40 5475957953) eGFR (test code = 101.7 mL/min/1.73m2 3421003770) OMAYRA (test code = OMAYRA) Association of [...] tests). Lab Interpretation Abnormal (test code = 59883-5) [facility] WITH [id number] 09:02:29 Test Item Value Reference Range Interpretation Comments WBC (test code = 8.30 See_Comment [Automated 3554-2) message] The sy stem which generated this result transmitted reference range : 4.20 - 10.70 10*3/?L. The reference range was not used to interpret this result as normal/abnormal . RBC (test code = 4.67 See_Comment [Automated 870-9) message] The sy stem which generated this [...] RDW-SD (test code = 42.3 fL 38.5-51.6 42681-0) RDW-CV (test code = 12.9 % 12.1-15.4 788-0) PLT (test code = 252 See_Comment [Automated 777-3) message] The sy stem which generated this result transmitted reference range : 150 - 328 10*3/ ?L. The reference r pasquale was not used to interpret this result as normal/abnormal . MPV (test code = 9.6 fL 9.8-13.0 L 78073-9) NRBC/100 WBC (test 0.0 See_Comment [Automat ed code = 0703524569) message] The system which generated this result transmitted reference range : 0.0 - 10.0 /100 WBCs. The refer ence range was not u sed to interpret th is result as normal/abnormal . NRBC x10^3 (test code See_Comment [Auto mated = 5109001378) message] The s ystem which generated this result transmitted reference range : 10*3/?L. The reference range was not used to interpret this result as normal/abnormal . GRAN MAT (NEUT) % 70.7 % (test code = 770-8) IMM GRAN % (test code 1.00 % = 7465222079) LYMPH % (test code = 16.0 % 736-9) MONO % (test code = 10.5 % 5905-5) EOS % (test code = 1.3 % 713-8) BASO % (test code = 0.5 % 706-2) GRAN MAT x10^3(ANC) 5.87 10*3/uL 1.99-6.95 (test code = 0237775930) IMM GRAN x10^3 (test 0.08 10*3/uL 0.00-0.06 H code = 1521723216) LYMPH x10^3 (test code 1.33 10*3/uL 1.09-3.23 = 731-0) MONO x10^3 (test code 0.87 10*3/uL 0.36-1.02 = 742-7) EOS x10^3 (test code = 0.11 10*3/uL 0.06-0.53 711-2) BASO x10^3 (test code 0.04 10*3/uL 0.01-0.09 = 704-7) Lab Interpretation Abnormal (test code = 49137-6) [facility] METABOLIC PANEL (NA, K, CL, CO2, GLUCOSE, BUN, CREATININE, CA)2022-11-10 23:42:55 Test Item Value Reference Range Interpretation Comments NA (test code = 121 mmol/L 135-145 L 5134824373) K (test code = 4.7 mmol/L 3.5-5.0 3547962875) CL (test code = 82 mmol/L 98-108 L 9643293195) CO2 TOTAL (test code = 34 mmol/L 23-31 H 7039538841) AGAP (test code = 5 2-16 1145399144) BUN (test code = 15 mg/dL 7-23 4045285290) GLUCOSE (test code = 120 mg/dL 70-110 H 1122471475) CREATININE (test code = 0.75 mg/dL 0.60-1.25 5112033927) CALCIUM (test code = 7.7 mg/dL 8.6-10.6 L 3257479608) eGFR (test code = 104.8 mL/min/1.73m2 5928141716) OMAYRA (test code = OMAYRA) Association of [...] tests). Lab Interpretation Abnormal (test code = 66649-0) [facility] METABOLIC PANEL (NA, K, CL, CO2, GLUCOSE, BUN, CREATININE, CA)2022-11-10 17:59:59 Test Item Value Reference Range Interpretation Comments NA (test code = 121 mmol/L 135-145 L 6358557923) K (test code = 4.3 mmol/L 3.5-5.0 7268008317) CL (test code = 81 mmol/L 98-108 L 4610903739) CO2 TOTAL (test code = 38 mmol/L 23-31 H 7040875822) AGAP (test code = 2 2-16 4154610853) BUN (test code = 15 mg/dL 7-23 0302313221) GLUCOSE (test code = 113 mg/dL 70-110 H 9175388827) CREATININE (test code = 0.74 mg/dL 0.60-1.25 8909654615) CALCIUM (test code = 7.5 mg/dL 8.6-10.6 L 0841753332) eGFR (test code = 106.5 mL/min/1.73m2 8369690374) OMAYRA (test code = OMAYRA) Association of [...] tests). Lab Interpretation Abnormal (test code = 82272-8) [id number] 13:08:23 Test Item Value Reference Range Interpretation Comments NT-proBNP (test code = 177 pg/mL <=125 H 0147697978) OMAYRA (test code = OMAYRA) Biotin has been reported to cause a negative bias, interpret results relative to patient's use of biotin. Lab Interpretation (test Abnormal code = 35998-6) [facility] [id number] 08:23:33 Test Item Value Reference Range Interpretation Comments TROPONIN I (test code = 0.004 ng/mL <=0.034 1411272683) OMAYRA (test code = OMAYRA) Reference (Normal) [...] biotin. Lab Interpretation Normal (test code = 12204-8) [facility]. METABOLIC PANEL ([id number])2022-11-09 08:12:09 Test Item Value Reference Range Interpretation Comments NA (test code = 123 mmol/L 135-145 L 1612820038) K (test code = 4.2 mmol/L 3.5-5.0 1504425801) CL (test code = 78 mmol/L 98-108 L 4136297932) CO2 TOTAL (test code = 34 mmol/L 23-31 H 9367266417) AGAP (test code = 11 2-16 1193387145) BUN (test code = 8 mg/dL 7-23 3646130501) GLUCOSE (test code = 113 mg/dL 70-110 H 7107971073) CREATININE (test code = 0.87 mg/dL 0.60-1.25 2466531210) TOTAL BILI (test code = 1.2 mg/dL 0.1-1.1 H 0337737504) CALCIUM (test code = 8.8 mg/dL 8.6-10.6 5081040206) T PROTEIN (test code = 7.6 g/dL 6.3-8.2 8542314318) ALBUMIN (test code = 4.5 g/dL 3.5-5.0 2254468750) ALK PHOS (test code = 72 U/L 34-122 1580560423) ALTv (test code = 13 U/L 5-50 1742-6) AST(SGOT) (test code = 13 U/L 13-40 9583125582) eGFR (test code = 88.3 mL/min/1.73m2 5375296253) OMAYRA (test code = OMAYRA) Association of [...] tests). Lab Interpretation Abnormal (test code = 41647-1) [facility], [id number] 08:11:14 Test Item Value Reference Range Interpretation Comments LIPASE (test code = 4007567959) 108 U/L 0-220 Lab Interpretation (test code = Normal 73045-4) [facility] WITH [id number] 07:59:28 Test Item Value Reference Range Interpretation Comments WBC (test code = 8.95 See_Comment [Automated message] 5434-2) The system [employer] generated this result transmitted ref erence range: 4.20 - 1 0.70 10*3/?L. The re ference range was not u sed to interpret this result as normal/abnor mal. RBC (test code = 5.07 See_Comment [Automated message] 447-8) The system [employer] generated this result transmitted ref erence range: [...] RDW-SD (test code 41.1 fL 38.5-51.6 = 78310-9) RDW-CV (test code 12.5 % 12.1-15.4 = 788-0) PLT (test code = 235 See_Comment [Automated message] 777-3) The system [facility] generated this result transmitted ref erence range: 150 - 32 8 10*3/?L. The re ference range was not u sed to interpret this result as normal/abnor mal. MPV (test code = 9.8 fL 9.8-13.0 49673-1) NRBC/100 WBC (test 0.0 See_Comment [Automat ed message] code = 6303433698) The syste m which generated this result transmitted ref erence range: 0.0 - 10 .0 /100 WBCs. The refer ence range was not u sed to interpret this result as normal/abnor mal. NRBC x10^3 (test See_Comment [Automated message] code = 7052151373) The syste m which generated this result transmitted ref erence range: 10*3/?L. The reference range was not used to interpr et this result as normal/abnormal . GRAN MAT (NEUT) % 56.9 % (test code = 770-8) IMM GRAN % (test 0.40 % code = 9109406862) LYMPH % (test code 29.4 % = 736-9) MONO % (test code 9.5 % = 5905-5) EOS % (test code = 3.0 % 713-8) BASO % (test code 0.8 % = 706-2) GRAN MAT 5.09 10*3/uL 1.99-6.95 x10^3(ANC) (test code = 6061950352) IMM GRAN x10^3 0.04 10*3/uL 0.00-0.06 (test code = 7925171786) LYMPH x10^3 (test 2.63 10*3/uL 1.09-3.23 code = 731-0) MONO x10^3 (test 0.85 10*3/uL 0.36-1.02 code = 742-7) EOS x10^3 (test 0.27 10*3/uL 0.06-0.53 code = 711-2) BASO x10^3 (test 0.07 10*3/uL 0.01-0.09 code = 704-7) [facility] URINALYSIS, [id number] 19:05:00 Test Item Value Reference Range Interpretation [...] U APPEAR (test code = clear 3267) [facility] URINALYSIS, [id number] 19:05:00 Test Item Value Reference Range Interpretation [...] U APPEAR (test code = clear 3267) [facility], [id number] 19:05:00 Test Item Value Reference Range Interpretation [...] U APPEAR (test code = clear 3267) [facility] ABDOMEN PELVIS W [id number] 17:53:531. ?No hydronephrosis or nephrolithiasis. 2. ?Mild [...] hernia with mild circumferential distalesophageal thickening (2:16). Cascade density within the distal stomach andat the [...] BONES: No acute or suspicious osseous abnormality.. [place], Radiant Results Inft User - 12/12/2020 12:55 [...] hernia with mild circumferential distalesophageal thickening (2:16). Cascade density within the distal stomach andat the [...] small right hydrocele.5. Additional findings as above. [facility] 17:37:38 Test Item Value Reference Range Interpretation Comments APPEARANCE (test code = Cloudy Clear A 2710087928) COLOR (test code = Red Yellow A 2645284288) PH (test code = 4.8-8.0 6244354539) SP GRAVITY (test code = 1.003-1.030 5286806068) GLU U QUAL (test code = 50 mg/dL Normal A 2222994883) BLOOD (test code = 3+ Negative A 2503503870) KETONES (test code = Negative Negative 6266175036) PROTEIN (test code = 100 mg/dL Negative A 2887-8) UROBILIN (test code = Normal Normal 2073836963) BILIRUBIN (test code = Negative Negative 6893585261) NITRITE (test code = Negative Negative 1830847982) LEUK DIANELYS (test code = Negative Negative 2010884293) RBC/HPF (test code = >182 See_Comment H [Autom ated message] 7435683783) The system [employer] generated this result transmit anirudh reference range : 0 - 3 HPF. The refe rence range was not u sed to interpret th is result as normal/abnormal . WBC/HPF (test code = >182 See_Comment H [Autom ated message] 8553117278) The system [employer] generated this result transmit anirudh reference range : 0 - 5 HPF. The refe rence range was not u sed to interpret th is result as normal/abnormal . BACTERIA (test code = Moderate Negative A 9634833401) WBC CLUMPS (test code = See_Comment H [Au tomated message] 0226252473) The system [employer] generated this result transmit anirudh reference range : <=1 HPF. The refere nce range was not u sed to interpret th is result as normal/abnormal . Lab Interpretation (test Abnormal code = 98237-4) [facility] (NA, K, CL, CO2, GLUCOSE, BUN, CREATININE, CA)2020-12-12 17:13:57 Test Item Value Reference Range Interpretation Comments NA (test code = 140 mmol/L 135-145 0981422412) K (test code = 4.5 mmol/L 3.5-5.0 6310409880) CL (test code = 100 mmol/L 98-108 9247423743) CO2 TOTAL (test code = 35 mmol/L 23-31 H 4320125712) AGAP (test code = 2-16 2996184314) BUN (test code = 25 mg/dL 7-23 H 7968585722) GLUCOSE (test code = 114 mg/dL 70-110 H 3322520692) CREATININE (test code = 1.18 mg/dL 0.60-1.25 2971743975) CALCIUM (test code = 9.0 mg/dL 8.6-10.6 7475193358) eGFR Calculation mL/min/1.73m2 (Non-) (test code = 3850049847) eGFR Calculation mL/min/1.73m2 () (test code = 8361734247) OMAYRA (test code = OMAYRA) Association of [...] tests). Lab Interpretation Abnormal (test code = 04566-9) [facility] with [id number] 16:56:10 Test Item Value Reference Range Interpretation Comments WBC (test code = See_Comment [Automated 6251-2) message] The sy stem which generated this result transmitted reference range : 4.20 - 10.70 10*3/?L. The reference range was not used to interpret this result as normal/abnormal . RBC (test code = See_Comment [Automated 301-8) message] The sy stem which generated this [...] RDW-SD (test code = 42.9 fL 38.5-51.6 67774-2) RDW-CV (test code = 11.9 % 12.1-15.4 L 788-0) PLT (test code = See_Comment [Automated 777-3) message] The sy stem which generated this result transmitted reference range : 150 - 328 10*3/ ?L. The reference r pasquale was not used to interpret this result as normal/abnormal . MPV (test code = 10.8 fL 9.8-13.0 35789-8) NRBC/100 WBC (test See_Comment [Automat ed code = 5099368594) message] The system which generated this result transmitted reference range : 0.0 - 10.0 /100 WBCs. The refer ence range was not u sed to interpret th is result as normal/abnormal . NRBC x10^3 (test code <0.01 See_Comment [Auto mated = 1369836014) message] The s ystem which generated this result transmitted reference range : 10*3/?L. The reference range was not used to interpret this result as normal/abnormal . GRAN MAT (NEUT) % 63.5 % (test code = 770-8) IMM GRAN % (test code 0.40 % = 9632986196) LYMPH % (test code = 23.9 % 736-9) MONO % (test code = 6.7 % 5905-5) EOS % (test code = 4.3 % 713-8) BASO % (test code = 1.2 % 706-2) GRAN MAT x10^3(ANC) 4.27 10*3/uL 1.99-6.95 (test code = 9402259107) IMM GRAN x10^3 (test 0.03 10*3/uL 0.00-0.06 code = 8908432810) LYMPH x10^3 (test code 1.61 10*3/uL 1.09-3.23 = 731-0) MONO x10^3 (test code 0.45 10*3/uL 0.36-1.02 = 742-7) EOS x10^3 (test code = 0.29 10*3/uL 0.06-0.53 711-2) BASO x10^3 (test code 0.08 10*3/uL 0.01-0.09 = 704-7) Lab Interpretation Abnormal (test code = 29258-5) [facility] URINALYSIS, [id number] 18:56:00 Test Item Value Reference Range Interpretation [...] 3267) Lab Interpretation (test code Abnormal = 77006-4) [facility] URINALYSIS, [id number] 18:56:00 Test Item Value Reference Range Interpretation [...] 3267) Lab Interpretation (test code Abnormal = 64790-1) [facility]ST [id number] 16:22:00 Patient Name: THIERRY MONGE Unit No: [id number] EXAMS: CPT CODE: [id number] XR CHEST 1V 56361 EXAMINATION: - XR CHEST 1V. LOCATION: B2. HISTORY: S/P ICD. COMPARISON: None. TECHNIQUE: Single AP view ofthe chest was obtained. FINDINGS: The right lung apex is excluded from the xaynp-jb-vuck. The heart is normal in size. Left AICD device is present. The lungs are clear. No acute osseous abnormality is i dentified. IMPRESSION: The right lung apex is excluded from the fbtxx-bn-hpwp. No acute cardiopulmonary abnormality is identified. at 1622 Reported and signed by: Latanya Marshall MD CC: Tyrell Mckeon Technologist: JOSELYN Mathews, RT(R) Transcrpt Date/Tm/Trnsp: 06/19/2020 (1622) [email or web address] Orig Print D/T: S: 06/19/2020 (1625) [facility] NAME: THIERRY MONGE [address] [address] PHYS: [place] [address] : 1960 AGE: 59 SEX: M LOC: Z.354 A PHONE #: [phone] EXAM DATE: 06/19/2020 STATUS: ADM IN FAX #: [phone] RADIOLOGY NO: PAGE 1 Signed ReportBASIC METABOLIC [id number] 13:17:00 Test Item Value Reference Range Interpretation [...] code = MG/DL 8.7-9.7 CA) Comments to Court Recorder: NURSE WILL BRING SPECIMEN TO LABIs this a LINE draw? N [id number] 13:17:00 Test Item Value Reference Range Interpretation Comments MAGNESIUM (test code = MAG) MG/DL 1.6-2.[address] Recorder: NURSE WILL BRING SPECIMEN TO LABIs this a LINE draw? N BASIC METABOLIC [id number] 13:17:00 Test Item Value Reference Range Interpretation [...] 9.1 MG/DL 8.4-10.2 N CA) Comments to Court Recorder: NURSE WILL BRING SPECIMEN TO LABIs this a LINE draw? N [id number] 13:17:00 Test Item Value Reference Range Interpretation Comments MAGNESIUM (test code = MAG) 2.2 MG/DL 1.6-2.[address] Recorder: NURSE WILL BRING SPECIMEN TO LABIs this a LINE draw? N BASIC METABOLIC [id number] 13:16:00 Test Item Value Reference Range Interpretation [...] code = MG/DL 8.7-9.7 CA) Comments to Court Recorder: NURSE WILL BRING SPECIMEN TO LABIs this a LINE draw? N [id number] 13:16:00 Test Item Value Reference Range Interpretation Comments MAGNESIUM (test code = MAG) MG/DL 1.6-2.[address] Recorder: NURSE WILL BRING SPECIMEN TO LABIs this a LINE draw? N BASIC METABOLIC [id number] 13:14:00 Test Item Value Reference Range Interpretation [...] code = CA) MG/DL 8.7-9.[address] Recorder: NURSE WILL BRING SPECIMEN TO LABIs this a LINE draw? N [id number] 13:14:00 Test Item Value Reference Range Interpretation Comments MAGNESIUM (test code = MAG) MG/DL 1.6-2.[address] Recorder: NURSE WILL BRING SPECIMEN TO LABIs this a LINE draw? N BASIC METABOLIC [id number] 13:13:00 Test Item Value Reference Range Interpretation [...] code = CA) MG/DL 8.7-9.[address] Recorder: NURSE WILL BRING SPECIMEN TO LABIs this a LINE draw? N [id number] 13:13:00 Test Item Value Reference Range Interpretation Comments MAGNESIUM (test code = MAG) MG/DL 1.6-2.[address] Recorder: NURSE WILL BRING SPECIMEN TO LABIs this a LINE draw? N PROTHROMBIN [id number] 13:08:00 Test Item Value Reference Range Interpretation [...] myocar dial infarction. 2.0 - 3.0 3. Physician Relations Specialist al prosthesis hear t valves, recurre nt systemic emboli sm. 3.0 - 4.[address] Recorder: NURSE WILL BRING SPECIMEN TO LABPTT ACTIVATED 2020-06-19 13:08:00 Test Item Value Reference Range Interpretation Comments PTT ACTIVATED (test code = APTT) 30.8 SECONDS 25.1-36.[address] Recorder: [facility] 2020-06-19 12:51:00 Test Item [...] 0.00 K/mm3 0.0-0.1 N NRBC#) Comments to Court Recorder: NURSE WILL BRING SPECIMEN TO LABIs this a LINE draw? N COVID 19 Asymptomatic IH [id number] 12:14:00 Test Item Value Reference Range Interpretation [...] Provider Source 2020-06-20 06:17:00-00:00 [facility] ([facility]) Cardiology Progress Note REPORT#:[id number] REPORT STATUS: Signed DATE:06/20/20 TIME: 616 PATIENT: THIERRY MONGE UNIT #: [id number] [facility] AGE: 59 SEX: M ATTEND: Geoffrey Mckeon MD ADM AUTHOR: Tyrell Mckeon MD * ALL edits or amendments must be made on the el [employer]/computer document * Subjective Chief Complaint: AICD Patient [...] Potassium Chloride 10 MEQ BID PO Ipratropium [place] 0.5 MG RTQ6H INH Cefazolin Sodium 1,000 [...] no edema Musculoskeletal: full range of motion Neuro/LAB ANIMAL TECHNOLOGIST: alert, oriented X 3, CN II-XII intact [...] PT Patient/Control Mix (9.4 - 12.5 SECONDS) 12. 7 H Laboratory Tests 06/19 1241 Hematology WBC [...] % (Auto) (14 - 44 %) 27.8 Gosper % (Auto) (4 - 13 %) 8.6 Eos % (Auto) (0 - 6 %) 1.7 Baso % (Auto) (0 - 2 %) 0.6 Neut # (Auto) (2.0 - 7.6 K/mm3) 3.99 Lymph # (Auto) (1.0 - 3.8 K/mm3) 1.82 Gosper # (Auto) (0.1 - 0.8 K/mm3) 0.56 [...] d/c home if stable. at 0818 RPT #:[id number] END OF REPORT 2020-06-19 16:03:00-00:00 [id number] [place] [address] PATIENT NAME: THIERRY MONGE ADMIT DATE: 06/19/20 ACCOUNT NO: [id number] ROOM NO: .[facility] AGE: 59 REPORT TYPE: OPERATIVE REPORT SEX: M ADMITTING PHYSICIAN:Tyrell Mckeon MD ATTENDING PHYSICIAN:Tyrell Mckeon MD OPERATION DATE: 06/19/2020 PROCEDURES: 1. Non-thoracotomy single lead AICD placement. 2. Defibrillation threshold testing. PREOPERATIVE DIAGNOSES: 1. 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 2. [place] [employer] class III congesti ve heart failure. POSTOPERATIVE DIAGNOSES: 1. 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 2. [place] Heart [employer] class III congesti ve heart failure. SURGEON: Tyrell Mckeon MD HOME CARE COORDINATOR: None. ANESTHESIA: Local anesthesia with 1% lidocaine [...] was flushed with antibiotic- containing solution. A 7-Nigerian sheath was advanced over the wire and [...] DATA: 1. Pulse generator: [employer] model [id number], s erial #[id number]. 2. Right ventricular lead; [employer] model 7120Q/ 58, serial number [id number]. STIMULATION THRESHOLD DATA: Right ventricle R waves [...] By: Tyrell Mckeon MD WT: OP:KINGS/PEPRUTH/ALEX Conf#: [id number]/DID#: [id number] cc: Rios Tenorio MD Authenticated by Tyrell Mckeon MD On 06/23/20 06:02:06 AM at 0602 PATIENT NAME: THIERRY MONGE 021 2020-06-19 13:14:00-00:00 [id number] [place] [address] PATIENT NAME: THIERRY MONGE ADMIT DATE: 06/19/20 ACCOUNT NO: [id number] ROOM NO: Z.354 AGE: 59 REPORT TYPE: ELECTROCARDIOGRAM SEX: M ADMITTING PHYSICIAN:Tyrell Mckeon MD ATTENDING PHYSICIAN:Tyrell Mckeon MD Order: [id number] Test Reason : CHF Test Date/Time Stamp: [...] 11/08 at 1157 PATIENT NAME: THIERRY MONGE 21
[2023-03-15] MEDS ORDERED: IPRATROPIUM BROM 0.5MG/2.5ML ONE ×2 (01:57→02:17)
[2023-03-15] MEDS ORDERED: METHYLPREDNISOLONE 40 MG INJ ONE (01:57)
[2023-03-15] MEDS ORDERED: ALBUTEROL 2.5 MG/3 ML NEB SOL ONE (01:57)
[2023-03-15 02:10] LABS: Absolute Lymphocytes (CBC) 1.7 K/uL (0.7-4.9); Hematocrit 44.1 % (39.6-49.0); RBC Red Blood Cell Count 4.41 M/uL (4.33-5.43)
[2023-03-15 02:11] LABS: Protime INR 1.73
[2023-03-15] MEDS ORDERED: NA CHLORIDE 0.9% 500 ML ONE (02:17)
[2023-03-15] MEDS ORDERED: dexAMETHasone 10 MG/ML VIAL ONE (02:18)
[2023-03-15] MEDS ORDERED: Magnesium Sulfate 2gm IVPB 0 G/0 ML BAG IV ONE (02:19)
[2023-03-15] MEDS ORDERED: Levofloxacin500mg IV 500 MG/100 ML BAG IV ONE (02:19)
[2023-03-15 02:33] LABS: SARS-CoV-2 Antigen Rapid Res Negative (Negative)
[2023-03-15] MEDS ORDERED: NA CHLORIDE 0.9% 1,000 ML ONE ×2 (02:34→03:59)
[2023-03-15 02:35] LABS: ALT/SGPT 13 U/L (16-61); Albumin 3.7 g/dL (3.4-5.0); Alkaline Phosphatase 101 U/L (45-117); BUN Blood Urea Nitrogen 17 mg/dL (7-18); Bicarbonate 43 mEq/L (21-32); Bilirubin Direct 0.2 mg/dL (0-0.2); Bilirubin Indirect, Calculated 0.5 mg/dL (0.2-0.8); Bilirubin Total 0.7 mg/dL (0.2-1.0); Glomerular Filtration Rate 73 ml/min (=/>90); Glucose Level 141 mg/dL (74-106); Lipase 45 U/L (13-75); NT PRO-BNP 129 pg/mL (<125); Potassium 4.1 mEq/L (3.5-5.1); Protein, Total 7.5 g/dL (6.4-8.2); Sodium Level 128 mEq/L (136-145); Troponin High Sensitivity 6.4 pg/mL (<58.9)
[2023-03-15 02:36] LABS: AST/SGOT < 3 U/L (15-37)
--- NOTE | 2023-03-15 02:46 | EDPHYS ---
Physician Documentation [facility] Name: Juan C Monge Age: 62 yrs Sex: Male : 1960 Arrival Date: 03/15/2023 Time: 01:30 Bed 2 Private MD: ED Physician Sam Lindsey HPI: 03/15 02:35 This 62 yrs old Male presents to ER via Wheelchair with complaints of belén Breathing Difficulty. 02:35 The patient has shortness of breath at rest, with light activity. Onset: The belén symptoms/episode began/occurred 2 day(s) ago. Duration: The symptoms are continuous, and are steadily getting worse. The patient's shortness of breath is aggravated by talking, walking, is alleviated by pursed lip breathing, rest, sitting up, application of supplemental oxygen. Associated signs and symptoms: Pertinent positives: non-productive cough, dizziness. Severity of symptoms: At their worst the symptoms were moderate severe in the emergency department the symptoms are unchanged. The patient has not experienced similar symptoms in the past. Historical: - Allergies: 01:43 No Known Allergies; kl - Home Meds: 02:27 aspirin 81 mg Oral chew 1 tab once daily [Active]; benazepril 10 mg Oral tab 1 tab once kl daily [Active]; buspirone 30 mg Oral tab 1 tab 2 times per day [Active]; Coreg 25 mg Oral tab 1 tab 2 times per day [Active]; hydrochlorothiazide 25 mg Oral tab 1 tab once daily [Active]; omeprazole 40 mg Oral cpDR 1 cap 2 times per day [Active]; potassium chloride 10 mEq Oral cpER 1 cap 2 times per day [Active]; Xarelto 15 mg Oral tab 1 tab once daily [Active]; - PMHx: 01:43 Atrial Fib; COPD; CVA; Hyperlipidemia; Hypertension; Myocardial infarction; skull kl fracture; - PSHx: 01:43 Appendectomy; defibrillator; kl - Immunization history:: Adult Immunizations not immunized. - Social history:: Smoking status: Patient reports the use of cigarette tobacco products, smokes one pack cigarettes per day. ROS: 02:38 Constitutional: Negative for fever, chills, and weight loss, Eyes: Negative for injury, belén pain, redness, and discharge, ENT: Negative for injury, pain, and discharge, Neck: Negative for injury, pain, and swelling, Cardiovascular: Negative for chest pain, palpitations, and edema, Abdomen/GI: Negative for abdominal pain, nausea, vomiting, diarrhea, and constipation, Back: Negative for injury and pain, : Negative for injury, bleeding, discharge, and swelling, MS/Extremity: Negative for injury and deformity, Skin: Negative for injury, rash, and discoloration, Neuro: Negative for headache, weakness, numbness, tingling, and seizure, Psych: Negative for depression, anxiety, suicide ideation, homicidal ideation, and hallucinations, Allergy/Immunology: Negative for hives, rash, and allergies, Endocrine: Negative for neck swelling, polydipsia, polyuria, polyphagia, and marked weight changes, Hematologic/Lymphatic: Negative for swollen nodes, abnormal bleeding, and unusual bruising. 02:38 Respiratory: Positive for cough, shortness of breath, wheezing, expiratory. Exam: 02:38 Constitutional: This is a well developed, well nourished patient who is awake, alert, belén and in no acute distress. Head/Face: Normocephalic, atraumatic. Eyes: Pupils equal round and reactive to light, extra-ocular motions intact. Lids and lashes normal. Conjunctiva and sclera are non-icteric and not injected. Cornea within normal limits. Periorbital areas with no swelling, redness, or edema. ENT: Nares patent. No nasal discharge, no septal abnormalities noted. Tympanic membranes are normal and external auditory canals are clear. Oropharynx with no redness, swelling, or masses, exudates, or evidence of obstruction, uvula midline. Mucous membranes moist. Neck: Trachea midline, no thyromegaly or masses palpated, and no cervical lymphadenopathy. Supple, full range of motion without nuchal rigidity, or vertebral point tenderness. No Meningismus. Chest/axilla: Normal chest wall appearance and motion. Nontender with no deformity. No lesions are appreciated. Cardiovascular: Regular rate and rhythm with a normal S1 and S2. No gallops, murmurs, or rubs. Normal PMI, no JVD. No pulse deficits. Abdomen/GI: Soft, non-tender, with normal bowel sounds. No distension or tympany. No guarding or rebound. No evidence of tenderness throughout. Back: No spinal tenderness. No costovertebral tenderness. Full range of motion. Male : Normal genitalia with no discharge or lesions. Skin: Warm, dry with normal turgor. Normal color with no rashes, no lesions, and no evidence of cellulitis. MS/ Extremity: Pulses equal, no cyanosis. Neurovascular intact. Full, normal range of motion. Neuro: Awake and alert, GCS 15, oriented to person, place, time, and situation. Cranial nerves II-XII grossly intact. Motor strength 5/5 in all extremities. Sensory grossly intact. Cerebellar exam normal. Normal gait. Psych: Awake, alert, with orientation to person, place and time. Behavior, mood, and affect are within normal limits. 02:38 ECG was reviewed by the Attending Physician. 02:38 Respiratory: moderate respiratory distress is noted, Respirations: labored breathing, that is mild, that is moderate, Breath sounds: decreased breath sounds, that are moderate, that are severe, are located in both bases, are heard in the left posterior upper lobe, right posterior upper lobe, left posterior lower lobe, right posterior middle lobe and right posterior lower lobe. Vital Signs: 01:42 Pulse 86; Resp 38; Pulse Ox 83% on R/A; kl 02:02 BP 74 / 52; Pulse 81; Resp 34; Pulse Ox 100% on Nebulizer Mask; kl 02:45 BP 87 / 66; Pulse 79; Resp 15; Pulse Ox 100% on BiPAP; jb4 03:30 BP 94 / 74; Pulse 78; Resp 19; Pulse Ox 100% on 35 lpm BiPAP; jb4 04:00 BP 89 / 57; Pulse 73; Resp 20; Pulse Ox 97% on 35 lpm BiPAP; jb4 MDM: 01:38 Patient medically screened. belén 02:39 Differential diagnosis: Anemia Anxiety Reaction asthma, Bronchitis CHF exacerbation, belén Chronic Obstructive Pulmonary Disease Myocardial Infarction pneumonia, pulmonary edema, Pulmonary Embolism reactive airway disease, Sepsis. Antibiotic administration: Levaquin given. Differential Diagnosis sepsis, flu. Immunization status: Influenza vaccine: within last 5 years. Data reviewed: vital signs, nurses notes, EMS record, lab test result(s), EKG, radiologic studies, plain films. Consideration of Admission/Observation Escalation of care including admission/observation considered. I considered the following discharge prescriptions or medication management in the emergency department Medications were administered in the Emergency Department. See MAR. Test considered but Not performed: CT: NO CT CHEST. Care significantly affected by the following chronic conditions: Hypertension, Chronic Obstructive Pulmonary Disease, A FIB, PM , DEFIB, CAD, DC. Counseling: I had a detailed discussion with the patient and/or guardian regarding: the historical points, exam findings, and any diagnostic results supporting the discharge/admit diagnosis, lab results, radiology results, the need to transfer to another facility, for higher level of care, [facility] does not immediately have the required specialist. 03/15 01:40 Order name: Basic Metabolic Panel; Complete Time: 02:49 03/15 01:40 Order name: CBC with Diff; Complete Time: 02:49 03/15 01:40 Order name: LFT's; Complete Time: 02:49 03/15 01:40 Order name: Magnesium; Complete Time: 02:49 03/15 01:40 Order name: NT PRO-BNP; Complete Time: 02:49 03/15 01:40 Order name: PT-INR; Complete Time: 02:49 03/15 01:40 Order name: Troponin HS; Complete Time: 02:49 03/15 01:40 Order name: Flu; Complete Time: 02:49 03/15 01:40 Order name: SARS RAPID; Complete Time: 02:49 03/15 01:40 Order name: Lipase; Complete Time: 02:49 03/15 01:41 Order name: Blood Culture Adult (2) 03/15 01:41 Order name: Lactate w/ 2H reflex if indic.; Complete Time: 02:49 03/15 01:40 Order name: XRAY Chest (1 view) 03/15 01:54 Order name: BIPAP 03/15 01:40 Order name: EKG; Complete Time: 01:41 03/15 01:40 Order name: Cardiac monitoring; Complete Time: 02:54 03/15 01:40 Order name: EKG - Nurse/Tech; Complete Time: 02:54 03/15 01:40 Order name: IV Saline Lock; Complete Time: 02:54 03/15 01:40 Order name: Labs collected and sent; Complete Time: 02:54 03/15 01:40 Order name: O2 Per Protocol; Complete Time: 02:54 03/15 01:40 Order name: O2 Sat Monitoring; Complete Time: 02:54 03/15 02:35 Order name: IV - Large Bore; Complete Time: :54 belén EC:38 Rate is 81 beats/min. Rhythm is regular. QRS [place] is Normal. [place] interval is normal. QRS belén interval is normal. QT interval is normal. No Q waves. T waves are Normal. No ST changes noted. Clinical impression: Abnormal EKG without significant change and No evidence of ischemia. Interpreted by me. Reviewed by me. Administered Medications: :56 Drug: MethylPrednisoLONE IVP 125 mg Route: IVP; Site: left forearm; kl 01:56 Not Given (Other Intervention Used): Levalbuterol Inhalation 3.75 mg Inhalation once kl 01:56 Not Given (Other Intervention Used): Ipratropium Inhalation Aerosol 0.5 mg Inhalation kl once :56 Drug: DuoNeb Nebulize (2.5 mg - 0.5 mg) 3 ml Route: Nebulizer; kl 02:03 Drug: Ipratropium Inhalation Aerosol 0.5 mg Route: Inhalation; jb4 02:03 Drug: Levalbuterol Inhalation 1.25 mg Route: Inhalation; kl 02:20 Drug: NS 0.9% IV 500 ml Route: IV; Rate: bolus; Site: left antecubital; jb4 02:29 Drug: NS 0.9% IV 1000 ml Route: IV; Rate: 1 bolus; Site: left forearm; jb4 02:39 Drug: levofloxacin IVPB 500 mg Volume: 100 ml; Route: IVPB; Infused Over: 60 mins; jb4 Site: left hand; 02:39 Drug: Decadron - Dexamethasone IVP 10 mg Route: IVP; Site: left forearm; jb4 03:00 Drug: Famotidine IVP 20 mg Route: IVP; Site: left forearm; jb4 03:36 Not Given (Physician Discretion): Magnesium Sulfate IVPB 1 grams IVPB once over 1 hrs jb4 03:57 Not Given (Duplicate Order): NS 0.9% IV 500 ml IV at bolus once jb4 03:57 Drug: NS 0.9% IV 1000 ml Route: IV; Rate: 125 ml/hr; Site: left hand; jb4 03:57 Not Given (Duplicate Order): NS 0.9% IV 1000 ml IV at 125 ml/hr continuous jb4 Disposition: 02:46 Critical Care:. [facility] Disposition Summary: 03/15/23 02:45 Transfer Ordered Transfer Location: Other Acute Care Facility belén Reason: Higher level of care belén Condition: Fair belén Problem: new belén Symptoms: have improved belén Accepting Physician: TO [facility](03/15/23 04:11) jb4 Diagnosis - COPD/ Chronic obstructive pulmonary disease with (acute) exacerbation belén - Tobacco abuse counseling belén - Tobacco use belén - Hypotension, unspecified belén - Hypoxemia belén - Hypo-osmolality and hyponatremia belén Forms: - Medication Reconciliation Form belén - SBAR form belén Critical care time excluding procedures: 02:46 Critical care time: Bedside Care: 25 minutes, Consultation: 15 minutes, Family belén Intervention: 10 minutes. Total time: 50 minutes Signatures: Dispatcher [employer] Katia Thomas RN RN kl Anderson, Corey, MD MD cha Bryson, James, RN RN jb4 Corrections: (The following items were deleted from the chart) 03:55 02:45 TO [facility] belén melissa 04:11 03:55 TO [facility] belén jb4
--- NOTE | 2023-03-15 02:46 | ER ---
Nurse's Notes [facility] Name: Juan C Monge Age: 62 yrs Sex: Male : 1960 Arrival Date: 03/15/2023 Time: 01:30 Bed 2 Private MD: Diagnosis: COPD/ Chronic obstructive pulmonary disease with (acute) exacerbation;Tobacco abuse counseling;Tobacco use;Hypotension, unspecified;Hypoxemia;Hypo-osmolality and hyponatremia Presentation: 03/15 01:42 Chief complaint: Patient states: SOB began today worsening uses home 02 increase in kl demand room air O2 sat 83%. Coronavirus screen: Vaccine status: Patient reports being unvaccinated. Ebola Screen: Patient negative for fever greater than or equal to 101.5 degrees Fahrenheit, and additional compatible Ebola Virus Disease symptoms. Risk Assessment: Do you want to hurt yourself or someone else? Patient reports no desire to harm self or others. 01:42 Method Of Arrival: Wheelchair kl 01:42 Acuity: JESSI 2 kl Triage Assessment: 01:44 General: Appears distressed, uncomfortable, Behavior is anxious, restless. Respiratory: kl Reports shortness of breath air hunger labored breathing Airway is patent Trachea midline Respiratory effort is labored, with nasal flaring, pursed lip, with retractions, Respiratory pattern is tachypnea Breath sounds are diminished bilaterally. Breath sounds with wheezes bilaterally. Onset: The symptoms/episode began/occurred gradually, the patient has moderate shortness of breath. Historical: - Allergies: 01:43 No Known Allergies; kl - Home Meds: 02:27 aspirin 81 mg Oral chew 1 tab once daily [Active]; benazepril 10 mg Oral tab 1 tab once kl daily [Active]; buspirone 30 mg Oral tab 1 tab 2 times per day [Active]; Coreg 25 mg Oral tab 1 tab 2 times per day [Active]; hydrochlorothiazide 25 mg Oral tab 1 tab once daily [Active]; omeprazole 40 mg Oral cpDR 1 cap 2 times per day [Active]; potassium chloride 10 mEq Oral cpER 1 cap 2 times per day [Active]; Xarelto 15 mg Oral tab 1 tab once daily [Active]; - PMHx: 01:43 Atrial Fib; COPD; CVA; Hyperlipidemia; Hypertension; Myocardial infarction; skull kl fracture; - PSHx: 01:43 Appendectomy; defibrillator; kl - Immunization history:: Adult Immunizations not immunized. - Social history:: Smoking status: Patient reports the use of cigarette tobacco products, smokes one pack cigarettes per day. Screenin:00 [facility] ED Fall Risk Assessment (Adult) History of falling in the last 3 months, jb4 including since admission No falls in past 3 months (0 pts) Confusion or Disorientation No (0 pts). [facility] ED Fall Risk Assessment (Adult) History of falling in the last 3 months, including since admission. Abuse screen: Denies threats or abuse. Nutritional screening: No deficits noted. Tuberculosis screening: No symptoms or risk factors identified. Assessment: 03:00 Reassessment: Patient appears in no apparent distress at this time. Patient and/or jb4 family updated on plan of care and expected duration. Pain level reassessed. Patient is alert, oriented x 3, equal unlabored respirations, skin warm/dry/pink. 03:37 Reassessment: Patient appears in no apparent distress at this time. Patient and/or jb4 family updated on plan of care and expected duration. Pain level reassessed. Patient is alert, oriented x 3, equal unlabored respirations, skin warm/dry/pink. Vital Signs: 01:42 Pulse 86; Resp 38; Pulse Ox 83% on R/A; kl 02:02 BP 74 / 52; Pulse 81; Resp 34; Pulse Ox 100% on Nebulizer Mask; kl 02:45 BP 87 / 66; Pulse 79; Resp 15; Pulse Ox 100% on BiPAP; jb4 03:30 BP 94 / 74; Pulse 78; Resp 19; Pulse Ox 100% on 35 lpm BiPAP; jb4 04:00 BP 89 / 57; Pulse 73; Resp 20; Pulse Ox 97% on 35 lpm BiPAP; jb4 ED Course: 01:30 Patient arrived in ED. ja2 01:38 Sam Lindsey MD is Attending Physician. belén 01:42 Patient has correct armband on for positive identification. Bed in low position. Call jb4 light in reach. Side rails up X 1. Client placed on continuous cardiac and pulse oximetry monitoring. NIBP monitoring applied. surveillance monitor on. 01:43 Triage completed. kl 02:00 No provider procedures requiring assistance completed. Initial lab(s) drawn, by hanh orantes sent to lab. Patient transferred, IV remains in place. Inserted saline lock: 20 gauge in left forearm, using aseptic technique. Blood collected. 02:53 Initial contact to [facility]. spoke with Anel Thompson. [facility] 02:54 XRAY Chest (1 view) In Process Unspecified. EDMS 03:00 Physician and Hospital approval at [facility] ( [id number] [facility]) by Dr Henry Padilla and BALTAZAR Finney. 03:13 Talha Napoles, RN is Primary Nurse. jb4 03:33 contacted [facility]. Was given a 30 min ETA. [facility] Administered Medications: 01:56 Drug: MethylPrednisoLONE IVP 125 mg Route: IVP; Site: left forearm; kl 01:56 Not Given (Other Intervention Used): Levalbuterol Inhalation 3.75 mg Inhalation once kl 01:56 Not Given (Other Intervention Used): Ipratropium Inhalation Aerosol 0.5 mg Inhalation kl once 01:56 Drug: DuoNeb Nebulize (2.5 mg - 0.5 mg) 3 ml Route: Nebulizer; kl 02:03 Drug: Ipratropium Inhalation Aerosol 0.5 mg Route: Inhalation; jb4 02:03 Drug: Levalbuterol Inhalation 1.25 mg Route: Inhalation; kl 02:20 Drug: NS 0.9% IV 500 ml Route: IV; Rate: bolus; Site: left antecubital; jb4 02:29 Drug: NS 0.9% IV 1000 ml Route: IV; Rate: 1 bolus; Site: left forearm; jb4 02:39 Drug: levofloxacin IVPB 500 mg Volume: 100 ml; Route: IVPB; Infused Over: 60 mins; jb4 Site: left hand; 02:39 Drug: Decadron - Dexamethasone IVP 10 mg Route: IVP; Site: left forearm; jb4 03:00 Drug: Famotidine IVP 20 mg Route: IVP; Site: left forearm; jb4 03:36 Not Given (Physician Discretion): Magnesium Sulfate IVPB 1 grams IVPB once over 1 hrs jb4 03:57 Not Given (Duplicate Order): NS 0.9% IV 500 ml IV at bolus once jb4 03:57 Drug: NS 0.9% IV 1000 ml Route: IV; Rate: 125 ml/hr; Site: left hand; jb4 03:57 Not Given (Duplicate Order): NS 0.9% IV 1000 ml IV at 125 ml/hr continuous jb4 Outcome: 02:45 ER care complete, transfer ordered by MD. melissa 04:08 Transferred by ground EMS Transfer form completed. X-rays sent w/ patient. jb4 04:08 Condition: stable 04:08 Discharge instructions given to patient, family, Instructed on the need for transfer, Demonstrated understanding of instructions. 04:11 Patient left the ED. jb4 Signatures: Dispatcher [employer] EDKatia Bass RN RN kl Anderson, Corey, MD MD cha Bryson, James, RN RN jb4 Herminia Lemons [facility] Corrections: (The following items were deleted from the chart) 03:01 03:00 Famotidine IVP 20 mg IVP in left antecubital jb4 jb4 03:56 03:30 BP 94 / 74; Pulse 78bpm; Resp 19bpm; Pulse Ox 100% Nebulizer Mask; jb4 jb4 04:07 04:00 Patient has correct armband on for positive identification. Bed in low position. jb4 Call light in reach. Side rails up X 1. jb4 04: 04:00 Client placed on continuous cardiac and pulse oximetry monitoring. NIBP jb4 monitoring applied. surveillance monitor on. jb4 04:08 02:00 Transferred by ground EMS Transfer form completed. X-rays sent w/ patient. jb4 jb4 04:08 02:00 Condition: stable jb4 jb4 04:08 02:00 Discharge instructions given to patient, family, Instructed on the need for jb4 transfer, Demonstrated understanding of instructions, jb4
[2023-03-15] MEDS ORDERED: FAMOTIDINE 20 MG/2 ML VIAL IV ONE (03:00)
[2023-03-15 04:38] VITALS: BP 89/57; O2SAT 97
--- NOTE | 2023-03-15 20:00 | RAD REPORT ---
EXAM DESCRIPTION: XR Chest, 1 View CLINICAL HISTORY: The patient is 62 years old and is Male; COUGH TECHNIQUE: Single view of the chest. COMPARISON: March 13, 2023. FINDINGS: Lungs: No pulmonary vascular congestion or consolidation. Pleural space: Unremarkable. No pneumothorax. Heart: Unremarkable. No cardiomegaly. Mediastinum: Unremarkable. Bones/joints: No acute fracture visualized. Tubes, lines and devices: Left-sided ICD. Upper abdomen: No free air in the visualized upper abdomen. IMPRESSION: No acute cardiopulmonary process identified. Electronically signed by: Katie Marin MD 03/15/2023 4:11 AM CDT Due to temporary technical issues with the PACS/Fluency reporting system, reports are being signed by the in house radiologists without review as a courtesy to insure prompt reporting. The interpreting radiologist is fully responsible for the content of the report.
--- NOTE | 2023-03-15 20:36 | EKG ---
Test Date: 2023-03-15 Test Time: 02:01:48 [employer]amer: MEKA MEASUREMENT RESULTS: Intervals: Rate: 80 UT: 138 QRSD: 92 QT: 390 QTc: 449 [place]: P: 84 UT: 138 QRS: 89 T: 86 INTERPRETIVE STATEMENTS: Normal sinus rhythm ST elevation, consider inferior injury or acute infarct ACUTE [place] Abnormal ECG Compared to ECG 03/15/2023 01:57:24 Atrial abnormality no longer present ST (T wave) deviation still present Myocardial infarct finding still present Electronically Signed On 03-15-23 20:32:52 CDT by Randy Bautista
--- NOTE | 2023-03-15 20:36 | EKG ---
Test Date: 2023-03-15 Test Time: 01:57:24 Inventory Control Planner: MEKA MEASUREMENT RESULTS: Intervals: Rate: 81 [place]: 142 QRSD: 92 QT: 386 QTc: 448 [place]: P: 91 [place]: 142 QRS: 90 T: 78 INTERPRETIVE STATEMENTS: Suspect arm lead reversal, interpretation assumes no reversal Normal sinus rhythm Right atrial enlargement ST elevation, consider inferior injury or acute infarct ACUTE [place] Consider right ventricular involvement in acute inferior infarct Abnormal ECG Compared to ECG 03/13/2023 01:15:02 Atrial abnormality now present ST (T wave) deviation now present Myocardial infarct finding now present Myocardial infarct finding now present Electronically Signed On 03-15-23 20:32:52 CDT by Randy Bautista
== END 2023-03-15 04:11 ==
LOC: ER 01:30
DX: J44.1 Chronic obstructive pulmonary disease with (acute) exacerbation (principal); I95.9 Hypotension, unspecified; R09.02 Hypoxemia; E87.1 Hypo-osmolality and hyponatremia; Z20.822 Contact with and (suspected) exposure to COVID-19; Z72.0 Tobacco use; Z71.6 Tobacco abuse counseling
CPT/HCPCS: 93005 ×2; 87040 ×2; 85025; 80048; 36415; 83735; 85610; 80076; 83605; 84484; 83690; 83880; 87804 ×2; 71045; 87811; 94660; J7613; J7644 ×2; J1100; J7040; J7030 ×2; J2920; J3475

== ENCOUNTER 2023-03-20 12:20 | Inpatient (IN) | payer OTHER ==
[2023-03-20] MEDS ORDERED: ALBUTEROL 2.5 MG/3 ML NEB SOL ONE ×2 (12:37→13:03)
[2023-03-20] MEDS ORDERED: IPRATROPIUM BROM 0.5MG/2.5ML ONE (12:37)
[2023-03-20] MEDS ORDERED: dexAMETHasone 10 MG/ML VIAL ONE (12:37)
--- OUTSIDE RECORDS SUMMARY | 2023-03-20 12:49 | XMS REPORT | Continuity of Care Document ---
:1960 Author Organization [facility] t Address [address] [place] [address] Care Team Providers Name Role Phone Mily Goodwin MD Primary Care Physician [phone] [place] Attending Clinician Unavailable MARELY WATTERS Attending Clinician Unavailable MARELY WATTERS Attending Clinician Unavailable Rudy Xiao Attending Clinician Unavailable CARL ORLANDO Attending Clinician Unavailable CARL ORLANDO Attending Clinician Unavailable MILY GOODWIN Attending Clinician Unavailable Doctor Unassigned, [place] Attending Clinician Unavailable Mily Goodwin MD Attending Clinician [phone] Taylor Frye RN Attending Clinician Unavailable TRAVIS ZENG Attending Clinician [...] Clinician Unavailable NOMI MARY Attending Clinician Unavailable Jem SAWYER, Dedrick Colin Attending Clinician Cecy Caro LVN Attending Clinician Carlo Valdez Attending Clinician Abi Swan MD Attending Clinician Clive Contreras MD Attending Clinician ERNESTO PIPER Attending Clinician Unavailable ERNESTO PIPER Attending Clinician Unavailable Krissy Powers MD Attending Clinician LEILA CHAPA Attending Clinician Unavailable Leila Chapa MD Attending Clinician Jeanette Weaver Attending Clinician Po, [facility] Main Attending Clinician Unavailable Gokul Turner MD Attending Clinician GOKUL TURNER Attending Clinician Unavailable , [facility] Surg Spec Procedure Attending Clinician Unavailable JEANETTE MCDANIEL A Attending Clinician Unavailable Chris ZAMORA, Herminia Chandler Attending Clinician Unavailable Tyrell Mckeon Attending Clinician Unavailable Ramesh Brown A Attending Clinician Rudy Xiao Admitting Clinician Unavailable TRAVIS ZENG Admitting Clinician Unavailable Travis Zeng [...] Type Policy Number Effective Date Expiration Date [facility] [id number] 2018 MEDICARE GOLD 00:00:00 Problems Condition Condition Condition Status Onset Resolution Last Treating Co mments Source Name Details Category Date Date Treatment Clinician Date 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 Chronic Fracture - not acute Fall Fall Disease Active 2013-09 Univers 2-12 ity of 00:00: [place] [address] Medical Branch Atrial Atrial Disease Active 2013-09 Univers fibrillati fibrillati 10-28 it y of on on 00:00: [place] [address] Medical Branch [place] VT Disease Active 2013-09 Univers (ventricul (ventricul 10-28 it y of ar ar 00:00: [place] tachycardi tachycardi 00 Me dical a) a) Branch Allergies, Adverse Reactions, Alerts Allergy Allergy Status Severity Reaction(s) Onset Inactive Treating Comm ents Source Name Type Date Date Clinician No Known DA Active U 2019-09 [facility]01 [facility] 00:00: [address] No Known DA Active U 2019-09 [facility] Allergie 0-01 [facility] 00:00: [address] NO KNOWN Drug Active [facility] ALLERGIE Class ity of S [place] [facility] Social History Social Habit Start Date Stop Date Quantity Comments Source History of tobacco Passive smoker Un iversity of use [place] [facility] History SDOH Social Unive rsity of [facility] [place] Med ical Together Branch History SDOH Social Unive rsity of [facility] Medical Branch History SDOH Social Unive rsity of [facility] Medical Membership Branch History SDOH Social Unive rsity of [facility] Medical Meetings Branch Alcohol intake 2023-03-01 2023-03-01 Current drinker Unive rsity of 00:00:00 00:00:00 of alcohol [place] Medical (finding) Branch History SDOH 2023-02-18 2023-02-18 2 University o f Housing Unable to 00:00:00 00:00:00 [place] M edical Pay Branch History SDOH 2023-02-18 2023-02-18 1 University o f Housing Places 00:00:00 00:00:00 [place] Medi lucho Lived Branch History SDOH 2023-02-18 2023-02-18 2 University o f Housing Homeless 00:00:00 00:00:00 [facility] dical Last Year Branch History SDAK 2023-02-18 2023-02-18 1 University o f Alcohol Frequency 00:00:00 00:00:00 [place] M edical Branch History SDOH Social 2023-02-18 2023-02-18 5 Unive rsity of Connections Phone 00:00:00 00:00:00 [facility] edical Branch History SDOH Social 2023-02-18 2023-02-18 7 Unive rsity of Connections Living 00:00:00 00:00:00 [place] [facility] History SDOH 2023-02-18 2023-02-18 0 University o f Physical Activity 00:00:00 00:00:00 [facility] edical DPW Branch History SDAK 2023-02-18 2023-02-18 0 University o f Physical Activity 00:00:00 00:00:00 [facility] edical MPS Branch History SDAK 2023-02-18 2023-02-18 5 University o f Financial 00:00:00 00:00:00 [place] [facility] History SDAK Food 2023-02-18 2023-02-18 1 Univers ity of Worry 00:00:00 00:00:00 [place] [facility] History SDAK Food 2023-02-18 2023-02-18 1 Univers ity of Scarcity 00:00:00 00:00:00 [place] [facility] History SDOH 2023-02-18 2023-02-18 2 University o f Transport Med 00:00:00 00:00:00 [place] Medic al Branch History SDAK 2023-02-18 2023-02-18 2 University o f Transport Non-Med 00:00:00 00:00:00 [facility] edical Branch Exposure to 2023-02-05 2023-02-15 Not sure University of SARS-CoV-2 (event) 00:00:00 15:15:00 [place] [facility] History SDAK 2022-12-02 2022-12-02 3 University o f Alcohol Std Drinks 00:00:00 00:00:00 [place] [facility] History SDOH 2022-12-02 2022-12-02 1 University o f Alcohol Binge 00:00:00 00:00:00 [place] [facility] al Branch Cigarettes smoked 2022-11-09 2022-11-09 Univers ity of current (pack per 00:00:00 00:00:00 ) - Reported Branch Tobacco use and 2022-11-09 2022-11-09 User of Universit y of exposure 00:00:00 00:00:00 smokeless [facility] tobacco Branch Education 2022-11-09 2022-11-09 13 University of 00:00:00 00:00:00 [facility] Alcohol Comment 2014-08-27 2014-08-27 8 drinks per day Uni versity of 00:00:00 00:00:00 [facility] Sex [birth year] At [birth year] Universit y of 00:00:00 00:00:00 [facility] Smoking Status Start Date Stop Date Source Smokes tobacco daily 2022-11-09 00:00:00 [facility] ity [facility] [place] [facility] Medications Ordered Filled Start Stop Current Ordering Indication Dosage Frequency Signature Comments Components Source Medication Medication Date Date Medication? Clinician (SIG) Name Name albuterol Yes [id number] 2.5mg Inhale 3 Univers 2.5 mg /3 6-15 mL every 4 ity of mL (0.083 00:00: (four) [place] %) 00 hours. May Medical nebulizer also Branch solution nebulize one extra every 6 hours. donepeziL 5 Yes [id number] 5mg Take 1 Univers mg tablet 6-13 tablet by ity o f 00:00: mouth in [place] 00 the Medical morning. Branch memantine 5 0 Yes [id number] 5mg Take 1 Univers mg tablet 6-13 tablet by ity o f 00:00: mouth in [place] 00 the Medical morning. Branch donepeziL 5 0 Yes [id number] 5mg Take 1 Univers mg tablet 6-13 tablet by ity o f 00:00: mouth in [place] 00 the Medical morning. Branch memantine 5 2022-0 Yes [id number] 5mg Take 1 Univers mg tablet 6-13 tablet by ity o f 00:00: mouth in [place] 00 the Medical morning. Branch donepeziL 5 2022-0 Yes [id number] 5mg Take 1 Univers mg tablet 6-13 tablet by ity o f 00:00: mouth in [place] 00 the Medical morning. Branch memantine 5 2022-0 Yes [id number] 5mg Take 1 Univers mg tablet 6-13 tablet by ity o f 00:00: mouth in [place] [address] the Medical morning. Branch busPIRone 2023-0 Yes 10mg Take 1 Univer s 10 mg 6-02 tablet by ity of tablet 16:15: mouth in [place] [address] the Medical morning Branch and 1 tablet in the evening. rivaroxaban 2023-0 Yes 15mg Take 1 Univ ers 15 mg 6-02 tablet by ity of tablet 16:15: mouth in [place] [address] the Medical morning. Branch ASPIRIN 2023-0 Yes 81mg Take 81 mg Univ ers ORAL 6-02 by mouth ity of 16:15: in the [place] [address] morning. Medical tablet Branch busPIRone 2023-0 Yes 10mg Take 1 Univer s 10 mg 6-02 tablet by ity of tablet 16:15: mouth in [place] [address] the Medical morning Branch and 1 tablet in the evening. rivaroxaban 2023-0 Yes 15mg Take 1 Univ ers 15 mg 6-02 tablet by ity of tablet 16:15: mouth in [place] [address] the Medical morning. Branch ASPIRIN 2023-0 Yes 81mg Take 81 mg Univ ers ORAL 6-02 by mouth ity of 16:15: in the [place] [address] morning. Medical tablet Branch busPIRone 2023-0 Yes 10mg Take 1 Univer s 10 mg 6-02 tablet by ity of tablet 16:15: mouth in [place] [address] the Medical morning Branch and 1 tablet in the evening. rivaroxaban 2023-0 Yes 15mg Take 1 Univ ers 15 mg 6-02 tablet by ity of tablet 16:15: mouth in [place] [address] the Medical morning. Branch ASPIRIN 2023-0 Yes 81mg Take 81 mg Univ ers ORAL 6-02 by mouth ity of 16:15: in the [place] [address] morning. Medical tablet Branch busPIRone 2023-0 Yes 10mg Take 1 Univer s 10 mg 6-02 tablet by ity of tablet 16:15: mouth in [place] [address] the Medical morning Branch and 1 tablet in the evening. rivaroxaban 2023-0 Yes 15mg Take 1 Univ ers 15 mg 6-02 tablet by ity of tablet 16:15: mouth in [place] [address] the Medical morning. Branch ASPIRIN 2023-0 Yes 81mg Take 81 mg Univ ers ORAL 6-02 by mouth ity of 16:15: in the [place] [address] morning. Medical tablet Branch busPIRone 2023-0 Yes 10mg Take 1 Univer s 10 mg 6-02 tablet by ity of tablet 16:15: mouth in [place] [address] the Medical morning Branch and 1 tablet in the evening. rivaroxaban 2023-0 Yes 15mg Take 1 Univ ers 15 mg 6-02 tablet by ity of tablet 16:15: mouth in [place] [address] the Medical morning. Branch ASPIRIN 2023-0 Yes 81mg Take 81 mg Univ ers ORAL 6-02 by mouth ity of 16:15: in the [place] [address] morning. Medical tablet Branch busPIRone 2023-0 Yes 10mg Take 1 Univer s 10 mg 6-02 tablet by ity of tablet 16:15: mouth in [place] [address] the Medical morning Branch and 1 tablet in the evening. rivaroxaban 2023-0 Yes 15mg Take 1 Univ ers 15 mg 6-02 tablet by ity of tablet 16:15: mouth in [place] [address] the Medical morning. Branch ASPIRIN 3-0 Yes 81mg Take 81 mg Univ ers ORAL 6-02 by mouth ity of 16:15: in the [place] [address] morning. Medical tablet Branch busPIRone 3-0 Yes 10mg Take 1 Univer s 10 mg 6-02 tablet by ity of tablet 16:15: mouth in [place] [address] the Medical morning Branch and 1 tablet in the evening. rivaroxaban 2023-0 Yes 15mg Take 1 Univ ers 15 mg 6-02 tablet by ity of tablet 16:15: mouth in [place] [address] the Medical morning. Branch ASPIRIN 3-0 Yes 81mg Take 81 mg Univ ers ORAL 6-02 by mouth ity of 16:15: in the [place] [address] morning. Medical tablet Branch predniSONE 2023-0 2023- Yes [id number] 40mg Take 2 Univers 20 mg 6-02 06-06 tablets by ity of tablet 00:00: 04:59 mouth in [place] 00 :00 the Medical morning Branch for 3 days. predniSONE 2023-0 2023- Yes [id number] 40mg Take 2 Univers 20 mg 6-02 06-06 tablets by ity of tablet 00:00: 04:59 mouth in [place] 00 :00 the Medical morning Branch for 3 days. predniSONE 2023-0 2023- Yes [id number] 40mg Take 2 Univers 20 mg 6-02 06-06 tablets by ity of tablet 00:00: 04:59 mouth in [place] 00 :00 the Medical morning Branch for 3 days. midodrine 5 2022-0 Yes [id number] 5mg Take 1 Univers mg tablet 6-01 tablet by ity o f 00:00: mouth [place] 00 every 8 Medical (eight) Branch hours as needed (Hypotensi on SBP <95 or DBP <50). midodrine 5 2022-0 Yes [id number] 5mg Take 1 Univers mg tablet 6-01 tablet by ity o f 00:00: mouth [place] 00 every 8 Medical (eight) Branch hours as needed (Hypotensi on SBP <95 or DBP <50). midodrine 5 2022-0 Yes [id number] 5mg Take 1 Univers mg tablet 6-01 tablet by ity o f 00:00: mouth [place] 00 every 8 Medical (eight) Branch hours as needed (Hypotensi on SBP <95 or DBP <50). midodrine 5 2022-0 Yes [id number] 5mg Take 1 Univers mg tablet 6-01 tablet by ity o f 00:00: mouth [place] 00 every 8 Medical (eight) Branch hours as needed (Hypotensi on SBP <95 or DBP <50). midodrine 5 2022-0 Yes [id number] 5mg Take 1 Univers mg tablet 6-01 tablet by ity o f 00:00: mouth [place] 00 every 8 Medical (eight) Branch hours as needed (Hypotensi on SBP <95 or DBP <50). midodrine 5 2022-0 Yes [id number] 5mg Take 1 Univers mg tablet 6-01 tablet by ity o f 00:00: mouth [place] 00 every 8 Medical (eight) Branch hours as needed (Hypotensi on SBP <95 or DBP <50). midodrine 5 2022-0 Yes [id number] 5mg Take 1 Univers mg tablet 6-01 tablet by ity o f 00:00: mouth [place] 00 every 8 Medical (eight) Branch hours as needed (Hypotensi on SBP <95 or DBP <50). midodrine 2022-0 Yes 5mg 5 mg, Univers (PROAMATINE 5-31 Oral, Q8H, it y of ) tablet 5 19:00: First dose [place] mg 00 on Tue02/16/23 at Branch 1400, Until Discontinu ed, Routine rivaroxaban Yes 15mg 15 mg, Univ ers (XARELTO) 02-16 Oral, ity of tablet 15 14:00: DAILY, [...] [place] 00 First dose Medical on Tue02/16/23 at 0900, Until Discontinu ed, Routine
administrative appeals tribunal member approving Restricted medication : DEDRICK TOTH [...] Yes 40mg 40 mg, Univ ers (DELTASONE) 02-16 06-05 Oral, ity of tablet 40 14:00: 13:59 DAILY, 5 [place] mg 00 :00 doses, Medical First dose Branch on Tue02/16/23 at 0900, Last dose on Tue02/20/23 at 0900, Routine sulfur 2022- No [id number] 5mL 5 mL, Unive rs hexafluorid 02-16 Intravenou i ty of e microsphr 14:00: 14:00 s, ONCE, 1 [place] (LUMASON) 00 :00 dose, On Medica l injection 5 Tue Branch mL 02/16/23 at 0900, Routine
administrative appeals tribunal member approving Restricted medication : STEFFANIE REYES budesonide- 2022-0 Yes 2{puff} 2 Puff, Univers formoteroL 02-16 Inhalation ity of (SYMBICORT) 13:00: , BID, [place] 160-4.5 00 First dose Medica l mcg/actuati on Tue on inhaler 02/16/23 at 2 Puff 0800, [...] of succ 05:43: 05:51 s, ONCE, 1 [place] (SOLU-MEDRO 00 :00 dose, On Medi lucho [...] d use approved by: ADC PROVIDER doxycycline 2022- No 100mg 100 mg, U nivers hyclate 02-16 Oral, Q12H ity o f (Vibramycin 01:02: 21:57 ABX, 10 [place] capsule 11 :07 doses, Medical 100 mg First dose Branch on Tue02/15/23 at 2015, Last dose on Tue02/20/23 at 0815, MICHAEL
Re ason for Anti-Infec tive: Documented Infection< br>Documen anirudh Infection Site: Respirator y
Durat ion of Therapy: 7 days NaCl 0.9% 0 2022- No 1000mL at 100 Uni vers (NS) IV 02-16 05-31 mL/hr, IV ity of infusion 01:00: 12:47 Infusion, [place] 1,000 mL 00 :05 CONTINUOUS Medic al , Starting Branch on Tue02/15/23 at 2000, Until Tue02/16/23 at 0747, Routine ipratropium 0 Yes 3mL 3 mL, Unive rs -albuteroL 02-16 Inhalation ity of (DUONEB) 00:53: , Q6HPRN, [place] 0.5 mg-3 35 Starting Medical mg(2.5 mg on Tue base)/3 mL 02/15/23 at nebulizer 1952, solution 3 Until mL Discontinu ed, Routine, Wheezing, Shortness of Breath HYDROcodone 2022-0 Yes 1{tbl} 1 tablet, Univers -acetaminop 02-16 Oral, ity of hen (NORCO) 00:52: Q6HPRN, [place] 10-325 mg 26 Starting Medica l tablet 1 on Tue tablet 02/15/23 at 1951, Until Discontinu ed, Routine, Pain (scale 7-10) traMADoL 0 2022- No 50mg 50 mg, Univer s (ULTRAM) 02-16 06-02 Oral, ity of tablet 50 00:52: 00:51 Q8HPRN, [place] mg 22 :22 Starting Medical on Tue Branch 02/15/23 at 1951, Until [place] 02/17/23 at 1950, Routine, Pain (scale 4-6) acetaminoph 2022-0 Yes 650mg 650 mg, Un igor en 02-16 Oral, ity of (TYLENOL) 00:52: Q6HPRN, [place] tablet 650 16 Starting Medic al mg on Tue02/15/23 at 1951, Until Discontinu ed, Routine, Pain (scale 1-3) NaCl 0.9% 2023-0 2023- No 1000mL at 999 Uni vers (NS) bolus 5-30 05-30 mL/hr, ity of infusion 22:15: 22:51 1,000 mL, [place] 1,000 mL 00 :00 IV Medical Infusion, Branch ONCE, 1 dose, On Tue02/15/23 at 1715, MICHAEL NaCl 0.9% 3-0 2022- No 1000mL at 999 Uni vers (NS) bolus 5-30 05-30 mL/hr, ity of infusion 21:30: 22:43 1,000 mL, [place] 1,000 mL 00 :00 IV Medical Infusion, Branch ONCE, 1 dose, On Tue02/15/23 at 1630, MICHAEL NaCl 0.9% 3-0 2022- No 1000mL at 999 Uni vers (NS) bolus 5-30 05-30 mL/hr, ity of infusion 20:45: 22:43 1,000 mL, [place] 1,000 mL 00 :00 IV Medical Infusion, Branch ONCE, 1 dose, On Tue02/15/23 at 1545, MICHAEL ipratropium 2022-0 2022- Yes 3mL 3 mL, Univ ers -albuteroL 02-05- Inhalation it y of (DUONEB) 22:15: 10:14 , ONCE, 1 [place] 0.5 mg-3 00 :00 dose, On Medical mg(2.5 mg Sat Branch base)/3 mL 02/05/23 at nebulizer 1715, MICHAEL solution 3 mL ipratropium 2022-0 2022- No 3mL 3 mL, Univ ers -albuteroL 02-05 05-20 Inhalation it y of (DUONEB) 21:15: 20:17 , ONCE, 1 [place] 0.5 mg-3 00 :00 dose, On Medical mg(2.5 mg Sat Branch base)/3 mL 02/05/23 at nebulizer 1615, MICHAEL solution 3 mL predniSONE 2022-0 2022- No 40mg 40 mg, Univ ers (DELTASONE) 02-05 05-20 Oral, ity of tablet 40 20:15: 20:18 ONCE, 1 [place] mg 00 :00 dose, On Medical Sat Branch 02/05/23 at 1515, MICHAEL levalbutero 2022- No 2.5mg 2.5 mg, U nivers l (XOPENEX) 02-04 Inhalation i ty of nebulizer 21:15: 20:31 , ONCE, 1 [place] solution 00 :00 dose, On Medical 2.5 mg Fri Branch 02/04/23 at 1615, Routine ipratropium 2022- No .5mg 0.5 mg, Un igor (ATROVENT) 02-04 Inhalation it y of 0.02 % 21:15: 20:31 , ONCE, 1 [place] nebulizer 00 :00 dose, On Medica l solution Fri Branch 0.5 mg 02/04/23 at 1615, MICHAEL albuterol Yes [id number] 2{puff} Inhale 2 Univers 90 5-19 Puffs ity of mcg/actuati 00:00: every 4 [place] on inhaler 00 (four) Medical hours as Branch needed for Wheezing or Shortness of Breath. albuterol Yes [id number] 2{puff} Inhale 2 Univers 90 5-19 Puffs ity of mcg/actuati 00:00: every 4 [place] on inhaler 00 (four) Medical hours as Branch needed for Wheezing or Shortness of Breath. albuterol Yes [id number] 2{puff} Inhale 2 Univers 90 5-19 Puffs ity of mcg/actuati 00:00: every 4 [place] on inhaler 00 (four) Medical hours as Branch needed for Wheezing or Shortness of Breath. albuterol Yes [id number] 2{puff} Inhale 2 Univers 90 5-19 Puffs ity of mcg/actuati 00:00: every 4 [place] on inhaler 00 (four) Medical hours as Branch needed for Wheezing or Shortness of Breath. albuterol Yes [id number] 2{puff} Inhale 2 Univers 90 5-19 Puffs ity of mcg/actuati 00:00: every 4 [place] on inhaler 00 (four) Medical hours as Branch needed for Wheezing or Shortness of Breath. albuterol Yes [id number] 2{puff} Inhale 2 Univers 90 5-19 Puffs ity of mcg/actuati 00:00: every 4 [place] on inhaler 00 (four) Medical hours as Branch needed for Wheezing or Shortness of Breath. albuterol 0 Yes [id number] 2{puff} Inhale 2 Univers 90 5-19 Puffs ity of mcg/actuati 00:00: every 4 [place] on inhaler 00 (four) Medical hours as Branch needed for Wheezing or Shortness of Breath. albuterol 0 Yes [id number] 2{puff} Inhale 2 Univers 90 5-19 Puffs ity of mcg/actuati 00:00: every 4 [place] on inhaler 00 (four) Medical hours as Branch needed for Wheezing or Shortness of Breath. albuterol 0 Yes [id number] 2{puff} Inhale 2 Univers 90 5-19 Puffs ity of mcg/actuati 00:00: every 4 [place] on inhaler 00 (four) Medical hours as Branch needed for Wheezing or Shortness of Breath. albuterol 0 Yes [id number] 2{puff} Inhale 2 Univers 90 5-19 Puffs ity of mcg/actuati 00:00: every 4 [place] on inhaler 00 (four) Medical hours as Branch needed for Wheezing or Shortness of Breath. ipratropium 0 Yes 3mL 3 mL, Unive rs -albuteroL 18 Inhalation ity of (DUONEB) 21:00: , QID, [place] 0.5 mg-3 00 First dose Medic al mg(2.5 mg on [place] Branch base)/3 mL 02/03/23 at nebulizer 1600, solution 3 Until mL Discontinu ed, Routine methylpredn 2022- No 125mg 125 mg, U nivers isolone sod 02-0318 Intravenou i ty of succ 18:45: 18:16 s, ONCE, 1 [place] (SOLU-MEDRO 00 :00 dose, On Medi lucho L) [place] Branch injection 02/03/23 at 125 mg 1345, 2 mL ipratropium 0 2022- No 3mL 3 mL, Univ ers -albuteroL 02-02 05-17 Inhalation it y of (DUONEB) 23:15: 22:13 , ONCE, 1 [place] 0.5 mg-3 00 :00 dose, On Medical mg(2.5 mg Wed Branch base)/3 mL 02/02/23 at nebulizer 1815, solution 3 Routine mL albuterol 2022-0 Yes [id number] 2{puff} Inhale 2 Univers 90 5-15 Puffs ity of mcg/actuati 00:00: every 4 [place] on inhaler 00 (four) Medical hours as Branch needed for Wheezing, Shortness of Breath or Bronchospa sm. fluticasone 2022-0 Yes [id number] 1{puff} Inhale 1 Univers propion-bella 5-15 Puff in ity o f meteroL 00:00: the [place] (ADVAIR 00 morning Medical DISKUS) and 1 Puff Branch 250-50 in the mcg/dose evening. inhalation disk montelukast 2022-0 Yes [id number] 10mg Take 1 Univers 10 mg 5-15 tablet by ity of tablet 00:00: mouth in [place] 00 the Medical morning. Branch tiotropium 2022-0 Yes [id number] 18ug Inhale 1 Univers 18 mcg 5-15 capsule in ity of inhalation 00:00: the [place] 00 morning. Medical Branch albuterol 2022-0 Yes [id number] 2{puff} Inhale 2 Univers 90 5-15 Puffs ity of mcg/actuati 00:00: every 4 [place] on inhaler 00 (four) Medical hours as Branch needed for Wheezing, Shortness of Breath or Bronchospa sm. fluticasone 2022-0 Yes [id number] 1{puff} Inhale 1 Univers propion-bella 5-15 Puff in ity o f meteroL 00:00: the [place] (ADVAIR 00 morning Medical DISKUS) and 1 Puff Branch 250-50 in the mcg/dose evening. inhalation disk montelukast 2022-0 Yes [id number] 10mg Take 1 Univers 10 mg 5-15 tablet by ity of tablet 00:00: mouth in [place] 00 the Medical morning. Branch tiotropium 2022-0 Yes [id number] 18ug Inhale 1 Univers 18 mcg 5-15 capsule in ity of inhalation 00:00: the [place] 00 morning. Medical Branch albuterol 2022-0 Yes [id number] 2{puff} Inhale 2 Univers 90 5-15 Puffs ity of mcg/actuati 00:00: every 4 [place] on inhaler 00 (four) Medical hours as Branch needed for Wheezing, Shortness of Breath or Bronchospa sm. fluticasone 3-0 Yes [id number] 1{puff} Inhale 1 Univers propion-bella 5-15 Puff in ity o f meteroL 00:00: the [place] (ADVAIR 00 morning Medical DISKUS) and 1 Puff Branch 250-50 in the mcg/dose evening. inhalation disk montelukast 3-0 Yes [id number] 10mg Take 1 Univers 10 mg 5-15 tablet by ity of tablet 00:00: mouth in [place] the Medical morning. Branch tiotropium 2022-0 Yes [id number] 18ug Inhale 1 Univers 18 mcg 5-15 capsule in ity of inhalation 00:00: the [place] 00 morning. Medical Branch albuterol 2022-0 Yes [id number] 2{puff} Inhale 2 Univers 90 5-15 Puffs ity of mcg/actuati 00:00: every 4 [place] on inhaler 00 (four) Medical hours as Branch needed for Wheezing, Shortness of Breath or Bronchospa sm. fluticasone 2022-0 Yes [id number] 1{puff} Inhale 1 Univers propion-bella 5-15 Puff in ity o f meteroL 00:00: the [place] (ADVAIR 00 morning Medical DISKUS) and 1 Puff Branch 250-50 in the mcg/dose evening. inhalation disk montelukast 3-0 Yes [id number] 10mg Take 1 Univers 10 mg 5-15 tablet by ity of tablet 00:00: mouth in [place] the morning. Branch tiotropium 3-0 Yes [id number] 18ug Inhale 1 Univers 18 mcg 5-15 capsule in ity of inhalation 00:00: the [place] 00 morning. Medical Branch fluticasone 2023-0 Yes [id number] 1{puff} Inhale 1 Univers propion-bella 5-15 Puff in ity o f meteroL 00:00: the [place] (ADVAIR 00 morning Medical DISKUS) and 1 Puff Branch 250-50 in the mcg/dose evening. inhalation disk montelukast 3-0 Yes [id number] 10mg Take 1 Univers 10 mg 5-15 tablet by ity of tablet 00:00: mouth in [place] 00 the Medical morning. Branch tiotropium 2022-0 Yes [id number] 18ug Inhale 1 Univers 18 mcg 5-15 capsule in ity of inhalation 00:00: the [place] 00 morning. Medical Branch fluticasone 2022-0 Yes [id number] 1{puff} Inhale 1 Univers propion-bella 5-15 Puff in ity o f meteroL 00:00: the [place] (ADVAIR 00 morning Medical DISKUS) and 1 Puff Branch 250-50 in the mcg/dose evening. inhalation disk montelukast 3-0 Yes [id number] 10mg Take 1 [facility] 10 mg 5-15 tablet by ity of tablet 00:00: mouth in [place] 00 the Medical morning. Branch tiotropium 2022-0 Yes [id number] 18ug Inhale 1 [facility] 18 mcg 5-15 capsule in ity of inhalation 00:00: the [place] 00 morning. Medical Branch fluticasone 2022-0 Yes [id number] 1{puff} Inhale 1 [facility] propion-bella 5-15 Puff in ity o f meteroL 00:00: the [place] (ADVAIR 00 morning Medical DISKUS) and 1 Puff Branch 250-50 in the mcg/dose evening. inhalation disk montelukast 2022-0 Yes [id number] 10mg Take 1 [facility] 10 mg 5-15 tablet by ity of tablet 00:00: mouth in [place] 00 the Medical morning. Branch tiotropium 2022-0 Yes [id number] 18ug Inhale 1 [facility] 18 mcg 5-15 capsule in ity of inhalation 00:00: the [place] 00 morning. Medical Branch fluticasone 3-0 Yes [id number] 1{puff} Inhale 1 [facility] propion-bella 5-15 Puff in ity o f meteroL 00:00: the [place] (ADVAIR 00 morning Medical DISKUS) and 1 Puff Branch 250-50 in the mcg/dose evening. inhalation disk montelukast 3-0 Yes [id number] 10mg Take 1 [facility] 10 mg 5-15 tablet by ity of tablet 00:00: mouth in [place] 00 the Medical morning. Branch tiotropium 2022-0 Yes [id number] 18ug Inhale 1 [facility] 18 mcg 5-15 capsule in ity of inhalation 00:00: the [place] 00 morning. Medical Branch fluticasone 2022-0 Yes [id number] 1{puff} Inhale 1 [facility] propion-bella 5-15 Puff in ity o f meteroL 00:00: the [place] (ADVAIR 00 morning Medical DISKUS) and 1 Puff Branch 250-50 in the mcg/dose evening. inhalation disk montelukast 2022-0 Yes [id number] 10mg Take 1 [facility] 10 mg 5-15 tablet by ity of tablet 00:00: mouth in [place] 00 the Medical morning. Branch tiotropium 2022-0 Yes [id number] 18ug Inhale 1 [facility] 18 mcg 5-15 capsule in ity of inhalation 00:00: the [place] 00 morning. Medical Branch fluticasone 2022-0 Yes [id number] 1{puff} Inhale 1 [facility] propion-bella 5-15 Puff in ity o f meteroL 00:00: the [place] (ADVAIR 00 morning Medical DISKUS) and 1 Puff Branch 250-50 in the mcg/dose evening. inhalation disk montelukast 2022-0 Yes [id number] 10mg Take 1 [facility] 10 mg 5-15 tablet by ity of tablet 00:00: mouth in [place] the morning. Branch tiotropium 2022-0 Yes [id number] 18ug Inhale 1 [facility] 18 mcg 5-15 capsule in ity of inhalation 00:00: the [place] 00 morning. Medical Branch fluticasone 2022-0 Yes [id number] 1{puff} Inhale 1 [facility] propion-bella 5-15 Puff in ity o f meteroL 00:00: the [place] (ADVAIR 00 morning Medical DISKUS) and 1 Puff Branch 250-50 in the mcg/dose evening. inhalation disk montelukast 2022-0 Yes [id number] 10mg Take 1 [facility] 10 mg 5-15 tablet by ity of tablet 00:00: mouth in [place] 00 the Medical morning. Branch tiotropium 2022-0 Yes [id number] 18ug Inhale 1 [facility] 18 mcg 5-15 capsule in ity of inhalation 00:00: the [place] 00 morning. Medical Branch fluticasone 2022-0 Yes [id number] 1{puff} Inhale 1 [facility] propion-bella 5-15 Puff in ity o f meteroL 00:00: the [place] (ADVAIR 00 morning Medical DISKUS) and 1 Puff Branch 250-50 in the mcg/dose evening. inhalation disk montelukast 2022-0 Yes [id number] 10mg Take 1 [facility] 10 mg 5-15 tablet by ity of tablet 00:00: mouth in [place] 00 the Medical morning. Branch tiotropium 2022-0 Yes [id number] 18ug Inhale 1 [facility] 18 mcg 5-15 capsule in ity of inhalation 00:00: the [place] 00 morning. Medical Branch fluticasone 2022-0 Yes [id number] 1{puff} Inhale 1 [facility] propion-bella 5-15 Puff in ity o f meteroL 00:00: the [place] (ADVAIR 00 morning Medical DISKUS) and 1 Puff Branch 250-50 in the mcg/dose evening. inhalation disk montelukast 2022-0 Yes [id number] 10mg Take 1 [facility] 10 mg 5-15 tablet by ity of tablet 00:00: mouth in [place] 00 the Medical morning. Branch tiotropium 2022-0 Yes [id number] 18ug Inhale 1 [facility] 18 mcg 5-15 capsule in ity of inhalation 00:00: the [place] 00 morning. Medical Branch fluticasone 2022-0 Yes [id number] 1{puff} Inhale 1 [facility] propion-bella 5-15 Puff in ity o f meteroL 00:00: the [place] (ADVAIR 00 morning Medical DISKUS) and 1 Puff Branch 250-50 in the mcg/dose evening. inhalation disk montelukast 2022-0 Yes [id number] 10mg Take 1 [facility] 10 mg 5-15 tablet by ity of tablet 00:00: mouth in [place] 00 the Medical morning. Branch tiotropium 2022-0 Yes [id number] 18ug Inhale 1 [facility] 18 mcg 5-15 capsule in ity of inhalation 00:00: the [place] 00 morning. Medical Branch albuterol 2022-0 2022- No [id number] 2{puff} Inhale 2 [facility] 90 5-15 05-19 Puffs ity of mcg/actuati 00:00: 00:00 every 4 [place] on inhaler 00 :00 (four) Medical hours as Branch needed for Wheezing, Shortness of Breath or Bronchospa sm. ipratropium 2022-0 2022- No 3mL 3 mL, Univ ers -albuteroL 01-29 Inhalation it y of (DUONEB) 14:30: 13:29 , ONCE, 1 [place] as 0.5 mg-3 00 :00 dose, On Medical mg(2.5 mg Sat Branch base)/3 mL 01/29/23 at nebulizer 0930, MICHAEL solution 3 mL predniSONE 2022- No 60mg 60 mg, Univ ers [...] mg(2.5 mg on [place] Branch base)/3 mL 01/27/23 at nebulizer 0800, solution 3 Until mL Discontinu ed, Routine ipratropium 2022- No 3mL 3 mL, Univ ers -albuteroL 01-24 Inhalation it y of (DUONEB) 18:00: 18:15 , ONCE, 1 [place] 0.5 mg-3 00 :00 dose, On Medical mg(2.5 mg 01/24/23 Bran base)/3 mL at 1300, nebulizer MICHAEL solution 3 mL furosemide 2022- No 40mg 40 mg, IV U nivers (LASIX) 01-24 Push, ity of injection 18:00: 18:42 ONCE, 1 [place] 40 mg 00 :00 dose, On Medical [facility] 01/24/23 Branch at 1300, MICHAEL aspirin 2022-2022- No 325mg 325 mg, Unive rs tablet 325 01-24 Oral, ity of mg 18:00: 18:44 ONCE, 1 [place] 00 :00 dose, On Medical [facility] 01/24/23 Branch at 1300, STAT busPIRone 2023-0 Yes 10mg Take 1 Univer s 10 mg 5-08 tablet by ity of tablet 15:48: mouth in [place] [address] the Medical morning Branch and 1 tablet in the evening. rivaroxaban 2023-0 Yes 15mg Take 1 Univ ers 15 mg 5-08 tablet by ity of tablet 15:48: mouth in [place] [address] the Medical morning. Branch ASPIRIN 2023-0 Yes 81mg Take 81 mg Univ ers ORAL 5-08 by mouth ity of 15:48: in the [place] [address] morning. Medical tablet Branch busPIRone 2023-0 Yes 10mg Take 1 Univer s 10 mg 5-08 tablet by ity of tablet 15:48: mouth in [place] [address] the Medical morning Branch and 1 tablet in the evening. rivaroxaban 2023-0 Yes 15mg Take 1 Univ ers 15 mg 5-08 tablet by ity of tablet 15:48: mouth in [place] [address] the Medical morning. Branch ASPIRIN 2023-0 Yes 81mg Take 81 mg Univ ers ORAL 5-08 by mouth ity of 15:48: in the [place] [address] morning. Medical tablet Branch busPIRone 2023-0 Yes 10mg Take 1 Un[facility] s 10 mg 5-08 tablet by ity of tablet 15:48: mouth in [place] [address] the Medical morning Branch and 1 tablet in the evening. rivaroxaban 2023-0 Yes 15mg Take 1 Univ ers 15 mg 5-08 tablet by ity of tablet 15:48: mouth in [place] [address] the Medical morning. Branch ASPIRIN 2023-0 Yes 81mg Take 81 mg Univ ers ORAL 5-08 by mouth ity of 15:48: in the [place] [address] morning. Medical tablet Branch busPIRone 2023-0 Yes 10mg Take 1 Univer s 10 mg 5-08 tablet by ity of tablet 15:48: mouth in [place] [address] the Medical morning Branch and 1 tablet in the evening. rivaroxaban 2023-0 Yes 15mg Take 1 Univ ers 15 mg 5-08 tablet by ity of tablet 15:48: mouth in [place] [address] the Medical morning. Branch ASPIRIN 2023-0 Yes 81mg Take 81 mg Univ ers ORAL 5-08 by mouth ity of 15:48: in the [place] [address] morning. Medical tablet Branch busPIRone 2023-0 Yes 10mg Take 1 Univer s 10 mg 5-08 tablet by ity of tablet 15:48: mouth in [place] [address] the Medical morning Branch and 1 tablet in the evening. rivaroxaban 2023-0 Yes 15mg Take 1 Univ ers 15 mg 5-08 tablet by ity of tablet 15:48: mouth in [place] [address] the Medical morning. Branch ASPIRIN 2023-0 Yes 81mg Take 81 mg Univ ers ORAL 5-08 by mouth ity of 15:48: in the [place] [address] morning. Medical tablet Branch busPIRone 2023-0 Yes 10mg Take 1 Univer s 10 mg 5-08 tablet by ity of tablet 15:48: mouth in [place] [address] the Medical morning Branch and 1 tablet in the evening. rivaroxaban 2023-0 Yes 15mg Take 1 Univ ers 15 mg 5-08 tablet by ity of tablet 15:48: mouth in [place] [address] the Medical morning. Branch ASPIRIN 2023-0 Yes 81mg Take 81 mg Univ ers ORAL 5-08 by mouth ity of 15:48: in the [place] [address] morning. Medical tablet Branch busPIRone 2023-0 Yes 10mg Take 1 Univer s 10 mg 5-08 tablet by ity of tablet 15:48: mouth in [place] [address] the Medical morning Branch and 1 tablet in the evening. rivaroxaban 2023-0 Yes 15mg Take 1 Univ ers 15 mg 5-08 tablet by ity of tablet 15:48: mouth in [place] [address] the Medical morning. Branch ASPIRIN 2023-0 Yes 81mg Take 81 mg Univ ers ORAL 5-08 by mouth ity of 15:48: in the [place] [address] morning. Medical tablet Branch busPIRone 2023-0 Yes 10mg Take 1 Univer s 10 mg 5-08 tablet by ity of tablet 15:48: mouth in [place] [address] the Medical morning Branch and 1 tablet in the evening. rivaroxaban 2023-0 Yes 15mg Take 1 Univ ers 15 mg 5-08 tablet by ity of tablet 15:48: mouth in [place] [address] the Medical morning. Branch ASPIRIN 2023-0 Yes 81mg Take 81 mg Univ ers ORAL 5-08 by mouth ity of 15:48: in the [place] [address] morning. Medical tablet Branch busPIRone 2023-0 Yes 10mg Take 1 Univer s 10 mg 5-08 tablet by ity of tablet 15:48: mouth in [place] [address] the Medical morning Branch and 1 tablet in the evening. rivaroxaban 2023-0 Yes 15mg Take 1 Univ ers 15 mg 5-08 tablet by ity of tablet 15:48: mouth in [place] [address] the Medical morning. Branch ASPIRIN 2023-0 Yes 81mg Take 81 mg Univ ers ORAL 5-08 by mouth ity of 15:48: in the [place] [address] morning. Medical tablet Branch busPIRone 2023-0 Yes 10mg Take 1 Univer s 10 mg 5-08 tablet by ity of tablet 15:48: mouth in [place] [address] the Medical morning Branch and 1 tablet in the evening. rivaroxaban 2023-0 Yes 15mg Take 1 Univ ers 15 mg 5-08 tablet by ity of tablet 15:48: mouth in [place] [address] the Medical morning. Branch ASPIRIN 2023-0 Yes 81mg Take 81 mg Univ ers ORAL 5-08 by mouth ity of 15:48: in the [place] [address] morning. Medical tablet Branch busPIRone 2023-0 Yes 10mg Take 1 Univer s 10 mg 5-08 tablet by ity of tablet 15:48: mouth in [place] [address] the Medical morning Branch and 1 tablet in the evening. rivaroxaban 2023-0 Yes 15mg Take 1 Univ ers 15 mg 5-08 tablet by ity of tablet 15:48: mouth in [place] [address] the Medical morning. Branch ASPIRIN 2023-0 Yes 81mg Take 81 mg Univ ers ORAL 5-08 by mouth ity of 15:48: in the [place] [address] morning. Medical tablet Branch busPIRone 2023-0 Yes 10mg Take 1 Univer s 10 mg 5-08 tablet by ity of tablet 15:48: mouth in [place] [address] the Medical morning Branch and 1 tablet in the evening. rivaroxaban 2023-0 Yes 15mg Take 1 Univ ers 15 mg 5-08 tablet by ity of tablet 15:48: mouth in [place] [address] the Medical morning. Branch ASPIRIN 2023-0 Yes 81mg Take 81 mg Univ ers ORAL 5-08 by mouth ity of 15:48: in the [place] [address] morning. Medical tablet Branch busPIRone 2023-0 Yes 10mg Take 1 Univer s 10 mg 5-08 tablet by ity of tablet 15:48: mouth in [place] [address] the Medical morning Branch and 1 tablet in the evening. rivaroxaban 2023-0 Yes 15mg Take 1 Univ ers 15 mg 5-08 tablet by ity of tablet 15:48: mouth in [place] 43 the Medical morning. Branch ASPIRIN 0 Yes 81mg Take 81 mg Univ ers ORAL 5-08 by mouth ity of 15:48: in the [place] 43 morning. Medical tablet Branch levalbutero 2022- No 1.25mg 1.25 mg, Univers l (XOPENEX) 01-23-06 Inhalation i ty of nebulizer 00:15: 23:35 , ONCE, 1 [place] solution 00 :00 dose, On Medical 1.25 mg 01/22/23 Branch at 1915, Routine ipratropium 2022- No .5mg 0.5 mg, Un igor (ATROVENT) 01-22 05-06 Inhalation it y of 0.02 % 23:30: 23:36 , ONCE, 1 [place] nebulizer 00 :00 dose, On Medica l solution 01/22/23 Branc h 0.5 mg at 1830, MICHAEL diltiazem Yes 30mg 30 mg, Univer s (CARDIZEM) 5-05 Oral, Q6H, ity of tablet 30 23:00: First dose [place] mg 00 on Tue Medical 01/21/23 at Branch 1800, Until Discontinu ed, Routine methylpredn Yes 125mg 125 mg, Un igor isolone sod -05 Intravenou it y of succ 23:00: s, Q6H, [place] (SOLU-MEDRO 00 First dose Me dical L) on Tue Branch injection 01/21/23 at 125 mg 1800, Until Discontinu ed, Routine ipratropium 2022- No 3mL 3 mL, Univ ers -albuteroL 01-21 05-05 Inhalation it y of (DUONEB) 20:45: 19:54 , ONCE, 1 [place] as 0.5 mg-3 00 :00 dose, On Medical mg(2.5 mg 01/21/23 Bran ch base)/3 mL at 1545, nebulizer Routine solution 3 mL diltiazem 2022- No 15mg 15 mg, IV Un igor (CARDIZEM 01-21 05-05 Push, ity of IV) 19:45: 20:06 ONCE, 1 [place] injection 00 :00 dose, On Medica l 15 mg 01/21/23 Branch at 1445, STAT
[facility] Rest[facility] medication : LOUIS HONG NaCl 0.9% 2022- No 1000mL at 999 Uni vers (NS) bolus 5-05 05-05 mL/hr, ity of infusion 19:45: 22:17 1,000 mL, [place] as 1,000 mL 00 :00 IV Medical Infusion, Branch ONCE, 1 dose, On Tue01/21/23 at 1445, STAT predniSONE 2022- Yes [id number] 40mg Take 2 [facility] 20 mg 5-04 05-09 tablets by ity of tablet 00:00: 04:59 mouth in [place] 00 :00 the Medical morning [place] for 4 days. predniSONE 2022-0 2022- Yes [id number] 40mg Take 2 [facility] 20 mg 5-04 05-09 tablets by ity of tablet 00:00: 04:59 mouth in [place] 00 :00 the [facility] morning [place] for 4 days. predniSONE 2022-0 2022- Yes [id number] 40mg Take 2 [facility] 20 mg 5-04 05-09 tablets by ity of tablet 00:00: 04:59 mouth in [place] 00 :00 the [facility] morning [place] for 4 days. predniSONE 2022-0 2022- Yes [id number] 40mg Take 2 [facility] 20 mg 5-04 05-09 tablets by ity of tablet 00:00: 04:59 mouth in [place] 00 :00 the [facility] for 4 days. predniSONE 2022-0 2022- Yes [id number] 40mg Take 2 [facility] 20 mg 5-04 05-09 tablets by ity of tablet 00:00: 04:59 mouth in [place] 00 :00 the [facility] morning [place] for 4 days. predniSONE 2022-0 2022- Yes [id number] 40mg Take 2 [facility] 20 mg 5-04 05-09 tablets by ity of tablet 00:00: 04:59 mouth in [place] 00 :00 the [facility] morning [place] for 4 days. predniSONE 2022-0 2022- Yes [id number] 40mg Take 2 [facility] 20 mg 5-04 05-09 tablets by ity of tablet 00:00: 04:59 mouth in [place] 00 :00 the [facility] morning [place] for 4 days. enoxaparin Yes 40mg 40 mg, Unive rs (LOVENOX) 5-03 Subcutaneo ity of injection 22:00: us, DAILY, [place] 40 mg 00 First dose Medical on Tue01/19/23 at 1700, Until Discontinu ed, Routine levalbutero 2023-0 Yes 1.25mg 1.25 mg, Univers l (XOPENEX) 5-03 Inhalation it y of nebulizer 21:00: , QID, [place] solution 00 First dose Medic al 1.25 mg (after Branch last modificati on) on Tue01/19/23 at 1600, Until Discontinu ed, Routine ipratropium 3-0 Yes .5mg 0.5 mg, Uni vers (ATROVENT) 5-03 Inhalation ity of 0.02 % 21:00: , QID, [place] nebulizer 00 First dose Medi lucho solution (after Branch 0.5 mg last modificati on) on Tue01/19/23 at 1600, Until Discontinu ed, Routine busPIRone 3-0 Yes 10mg Take 1 Univer s 10 mg 5-03 tablet by ity of tablet 19:49: mouth in [place] [address] the Medical morning Branch and 1 tablet in the evening. rivaroxaban 2023-0 Yes 15mg Take 1 Univ ers 15 mg 5-03 tablet by ity of tablet 19:49: mouth in [place] [address] the Medical morning. Branch ASPIRIN 3-0 Yes 81mg Take 81 mg Univ ers ORAL 5-03 by mouth ity of 19:49: in the [place] [address] morning. Medical tablet Branch busPIRone 2023-0 Yes 10mg Take 1 Univer s 10 mg 5-03 tablet by ity of tablet 19:49: mouth in [place] [address] the Medical morning Branch and 1 tablet in the evening. rivaroxaban 2023-0 Yes 15mg Take 1 Univ ers 15 mg 5-03 tablet by ity of tablet 19:49: mouth in [place] [address] the Medical morning. Branch ASPIRIN 2023-0 Yes 81mg Take 81 mg Univ ers ORAL 5-03 by mouth ity of 19:49: in the [place] [address] morning. Medical tablet Branch busPIRone 2023-0 Yes 10mg Take 1 Univer s 10 mg 5-03 tablet by ity of tablet 19:49: mouth in [place] [address] the Medical morning Branch and 1 tablet in the evening. rivaroxaban 2023-0 Yes 15mg Take 1 Univ ers 15 mg 5-03 tablet by ity of tablet 19:49: mouth in [place] [address] the Medical morning. Branch ASPIRIN 3-0 Yes 81mg Take 81 mg Univ ers ORAL 5-03 by mouth ity of 19:49: in the [place] [address] morning. Medical tablet Branch busPIRone 3-0 Yes 10mg Take 1 Univer s 10 mg 5-03 tablet by ity of tablet 19:49: mouth in [place] [address] the Medical morning Branch and 1 tablet in the evening. rivaroxaban 3-0 Yes 15mg Take 1 Univ ers 15 mg 5-03 tablet by ity of tablet 19:49: mouth in [place] [address] the Medical morning. Branch ASPIRIN 3-0 Yes 81mg Take 81 mg Univ ers ORAL 5-03 by mouth ity of 19:49: in the [place] [address] morning. Medical tablet Branch busPIRone 3-0 Yes 10mg Take 1 Univer s 10 mg 5-03 tablet by ity of tablet 19:49: mouth in [place] [address] the Medical morning Branch and 1 tablet in the evening. rivaroxaban 3-0 Yes 15mg Take 1 Univ ers 15 mg 5-03 tablet by ity of tablet 19:49: mouth in [place] [address] the Medical morning. Branch ASPIRIN 3-0 Yes 81mg Take 81 mg Univ ers ORAL 5-03 by mouth ity of 19:49: in the [place] [address] morning. Medical tablet Branch busPIRone 3-0 Yes 10mg Take 1 Univer s 10 mg 5-03 tablet by ity of tablet 19:49: mouth in [place] [address] the Medical morning Branch and 1 tablet in the evening. rivaroxaban 3-0 Yes 15mg Take 1 Univ ers 15 mg 5-03 tablet by ity of tablet 19:49: mouth in [place] [address] the Medical morning. Branch ASPIRIN 3-0 Yes 81mg Take 81 mg Univ ers ORAL 5-03 by mouth ity of 19:49: in the [place] [address] morning. Medical tablet Branch benazepriL 2022-0 2022- No 10mg Take 1 Univ ers 10 mg 5-03 05-03 tablet by ity of tablet 17:28: 00:00 mouth in [place] 05 :00 the Medical morning. Branch potassium 3-0 2022- No 1{tbl} Take 1 Uni vers chloride 5-03 05-03 tablet by ity o f (KCL-20 17:28: 00:00 mouth in [place] ORAL) 05 :00 the Medical morning Branch and 1 tablet in the evening. aspirin Yes 81mg 81 mg, Univers chewable 01-19 Oral, ity of tablet 81 14:00: DAILY, [...] of 0.02 % 13:00: 19:13 , TID, [place] nebulizer 00 :37 First dose Medi lucho solution (after Branch 0.5 mg last modificati on) on Tue01/19/23 at 0800, Until Discontinu ed, Routine levalbutero 2022- No 1.25mg 1.25 mg, Univers l (XOPENEX) 01-19 Inhalation i ty of nebulizer 13:00: 19:13 , TID, [place] solution 00 :37 First dose Medic al 1.25 mg on Tue Branch 01/19/23 at 0800, Until Discontinu ed, Routine sodium 2022- No 15g 15 g, Univers polystyrene 01-19 Oral, ity of sulfonate 13:00: 13:22 ONCE, 1 [place] (KAYEXALATE 00 :00 dose, On Medi lucho ) 15 Tue01/19/23 Branch gram/60 mL at 0800, suspension Routine 15 g ipratropium 2022- No .5mg 0.5 mg, Un ig[facility] (ATROVENT) 01-19-03 Inhalation it y of 0.02 % 09:00: 12:09 , Q4H, [place] nebulizer 00 :19 First dose Medi lucho solution on Tue Branch 0.5 mg 01/19/23 at 0400, Until Discontinu ed, Routine levoFLOXaci 2022- Yes 500mg 500 mg, U nivers n 01-19 05-08 Oral, Q24H ity of (LEVAQUIN) 08:15: [...] 200 mg, Un igor 100 mg/5 mL 01-19 Oral, ity of solution 08:04: Q6HPRN, [place] 200 mg 52 Starting Medical on Tue Branch 01/19/23 at 0304, Until Discontinu ed, Routine, Cough ondansetron Yes 4mg 4 mg, Slow Univers (ZOFRAN 01-19 IV Push, ity of (PF)) 08:03: Q6HPRN, [place] injection 4 53 Starting Medi lucho mg [...] :39 Starting Medi lucho tablet 1 on Wed Branch tablet 01/19/23 at 0303, Until 01/21/23 at 0302, Routine, Pain (scale 4-6) acetaminoph 2022- Yes 650mg 650 mg, Un igor en 01-19 Oral, ity of (TYLENOL) 08:03: Q6HPRN, [place] tablet 650 35 Starting Medic al mg on Tue Branch 01/19/23 at 0303, Until Discontinu ed, Routine, Pain (scale 1-3) levalbutero 2022-0 2022- No 1.25mg 1.25 mg, Univers l (XOPENEX) 01-19 Inhalation i ty of nebulizer 07:30: 07:08 , ONCE, 1 [place] solution 00 :00 dose, On Medical 1.25 mg 01/19/23 Branch at 0230, Routine dexamethaso 2022-2022- No 10mg 10 mg, Uni vers ne sod phos 01-19 Oral, ity of PF 06:58: 07:06 ONCE, 1 [place] injection 00 :00 dose, On Medica l 10 mg 01/19/23 Branch at 0200, 1 mL ipratropium 2022-0 2022- No .5mg 0.5 mg, Un ig[facility] (ATROVENT) 01-19 Inhalation it y of 0.02 % 06:45: 07:09 , ONCE, 1 [place] nebulizer 00 :00 dose, On Medica l solution 01/19/23 Branc h 0.5 mg at 0145, MICHAEL ipratropium 3-0 Yes [id number] .5mg Inhale 2.5 Univers 0.02 % 5-03 mL every 6 ity of nebulizer 00:00: (six) [place] solution 00 hours as Medical needed for Branch Wheezing, Shortness of Breath, Bronchospa sm or Chest tightness. guaiFENesin 2023-0 Yes [id number] 200mg Take 10 mL Univers 100 mg/5 mL 03 by mouth ity of solution 00:00: every 6 [place] 00 (six) Medical hours as Branch needed for Cough. ipratropium 2023-0 Yes [id number] .5mg Inhale 2.5 Univers 0.02 % 5-03 mL every 6 ity of nebulizer 00:00: (six) [place] solution 00 hours as Medical needed for Branch Wheezing, Shortness of Breath, Bronchospa sm or Chest tightness. guaiFENesin 2023-0 Yes [id number] 200mg Take 10 mL Univers 100 mg/5 mL 5-03 by mouth ity of solution 00:00: every 6 [place] 00 (six) Medical hours as Branch needed for Cough. ipratropium 2023-0 Yes [id number] .5mg Inhale 2.5 Univers 0.02 % 5-03 mL every 6 ity of nebulizer 00:00: (six) [place] solution 00 hours as Medical needed for Branch Wheezing, Shortness of Breath, Bronchospa sm or Chest tightness. guaiFENesin 2023-0 Yes [id number] 200mg Take 10 mL Univers 100 mg/5 mL 5-03 by mouth ity of solution 00:00: every 6 [place] 00 (six) Medical hours as Branch needed for Cough. ipratropium 2023-0 Yes [id number] .5mg Inhale 2.5 Univers 0.02 % 5-03 mL every 6 ity of nebulizer 00:00: (six) [place] solution 00 hours as Medical needed for Branch Wheezing, Shortness of Breath, Bronchospa sm or Chest tightness. guaiFENesin 2023-0 Yes [id number] 200mg Take 10 mL Univers 100 mg/5 mL 5-03 by mouth ity of solution 00:00: every 6 [place] 00 (six) Medical hours as Branch needed for Cough. ipratropium 2023-0 Yes [id number] .5mg Inhale 2.5 Univers 0.02 % 5-03 mL every 6 ity of nebulizer 00:00: (six) [place] solution 00 hours as Medical needed for Branch Wheezing, Shortness of Breath, Bronchospa sm or Chest tightness. guaiFENesin 2023-0 Yes [id number] 200mg Take 10 mL Univers 100 mg/5 mL 5-03 by mouth ity of solution 00:00: every 6 [place] 00 (six) Medical hours as Branch needed for Cough. ipratropium 2023-0 Yes [id number] .5mg Inhale 2.5 Univers 0.02 % 5-03 mL every 6 ity of nebulizer 00:00: (six) [place] solution 00 hours as Medical needed for Branch Wheezing, Shortness of Breath, Bronchospa sm or Chest tightness. guaiFENesin 2023-0 Yes [id number] 200mg Take 10 mL Univers 100 mg/5 mL 5-03 by mouth ity of solution 00:00: every 6 [place] 00 (six) Medical hours as Branch needed for Cough. ipratropium 2023-0 Yes [id number] .5mg Inhale 2.5 Univers 0.02 % 5-03 mL every 6 ity of nebulizer 00:00: (six) [place] solution 00 hours as Medical needed for Branch Wheezing, Shortness of Breath, Bronchospa sm or Chest tightness. guaiFENesin 2023-0 Yes [id number] 200mg Take 10 mL Univers 100 mg/5 mL 5-03 by mouth ity of solution 00:00: every 6 [place] 00 (six) Medical hours as Branch needed for Cough. ipratropium 2023-0 Yes [id number] .5mg Inhale 2.5 Univers 0.02 % 5-03 mL every 6 ity of nebulizer 00:00: (six) [place] solution 00 hours as Medical needed for Branch Wheezing, Shortness of Breath, Bronchospa sm or Chest tightness. guaiFENesin 2023-0 Yes [id number] 200mg Take 10 mL Univers 100 mg/5 mL 5-03 by mouth ity of solution 00:00: every 6 [place] 00 (six) Medical hours as Branch needed for Cough. ipratropium 2023-0 Yes [id number] .5mg Inhale 2.5 Univers 0.02 % 5-03 mL every 6 ity of nebulizer 00:00: (six) [place] solution 00 hours as Medical needed for Branch Wheezing, Shortness of Breath, Bronchospa sm or Chest tightness. guaiFENesin 2023-0 Yes [id number] 200mg Take 10 mL Univers 100 mg/5 mL 5-03 by mouth ity of solution 00:00: every 6 [place] 00 (six) Medical hours as Branch needed for Cough. ipratropium 2023-0 Yes [id number] .5mg Inhale 2.5 [facility] 0.02 % 5-03 mL every 6 ity of nebulizer 00:00: (six) [place] solution 00 hours as Medical needed for Branch Wheezing, Shortness of Breath, Bronchospa sm or Chest tightness. guaiFENesin 2023-0 Yes [id number] 200mg Take 10 mL [facility] 100 mg/5 mL 5-03 by mouth ity of solution 00:00: every 6 [place] 00 (six) Medical hours as Branch needed for Cough. ipratropium 2023-0 Yes [id number] .5mg Inhale 2.5 [facility] 0.02 % 5-03 mL every 6 ity of nebulizer 00:00: (six) [place] solution 00 hours as Medical needed for Branch Wheezing, Shortness of Breath, Bronchospa sm or Chest tightness. guaiFENesin 2023-0 Yes [id number] 200mg Take 10 mL [facility] 100 mg/5 mL 5-03 by mouth ity of solution 00:00: every 6 [place] 00 (six) Medical hours as Branch needed for Cough. ipratropium 2023-0 Yes [id number] .5mg Inhale 2.5 [facility] 0.02 % 5-03 mL every 6 ity of nebulizer 00:00: (six) [place] solution 00 hours as Medical needed for Branch Wheezing, Shortness of Breath, Bronchospa sm or Chest tightness. guaiFENesin 2023-0 Yes [id number] 200mg Take 10 mL [facility] 100 mg/5 mL 5-03 by mouth ity of solution 00:00: every 6 [place] 00 (six) Medical hours as Branch needed for Cough. ipratropium 2023-0 Yes [id number] .5mg Inhale 2.5 [facility] 0.02 % 5-03 mL every 6 ity of nebulizer 00:00: (six) [place] solution 00 hours as Medical needed for Branch Wheezing, Shortness of Breath, Bronchospa sm or Chest tightness. guaiFENesin 2023-0 Yes [id number] 200mg Take 10 mL [facility] 100 mg/5 mL 5-03 by mouth ity of solution 00:00: every 6 [place] 00 (six) Medical hours as Branch needed for Cough. ipratropium 2023-0 Yes [id number] .5mg Inhale 2.5 [facility] 0.02 % 5-03 mL every 6 ity of nebulizer 00:00: (six) [place] solution 00 hours as Medical needed for Branch Wheezing, Shortness of Breath, Bronchospa sm or Chest tightness. guaiFENesin 2023-0 Yes [id number] 200mg Take 10 mL [facility] 100 mg/5 mL 5-03 by mouth ity of solution 00:00: every 6 [place] 00 (six) Medical hours as Branch needed for Cough. ipratropium 2023-0 Yes [id number] .5mg Inhale 2.5 [facility] 0.02 % 5-03 mL every 6 ity of nebulizer 00:00: (six) [place] solution 00 hours as Medical needed for Branch Wheezing, Shortness of Breath, Bronchospa sm or Chest tightness. guaiFENesin 2023-0 Yes [id number] 200mg Take 10 mL [facility] 100 mg/5 mL 5-03 by mouth ity of solution 00:00: every 6 [place] 00 (six) Medical hours as Branch needed for Cough. ipratropium 2023-0 Yes [id number] .5mg Inhale 2.5 [facility] 0.02 % 5-03 mL every 6 ity of nebulizer 00:00: (six) [place] solution 00 hours as Medical needed for Branch Wheezing, Shortness of Breath, Bronchospa sm or Chest tightness. guaiFENesin 2023-0 Yes [id number] 200mg Take 10 mL [facility] 100 mg/5 mL 5-03 by mouth ity of solution 00:00: every 6 [place] 00 (six) Medical hours as Branch needed for Cough. ipratropium 2023-0 Yes [id number] .5mg Inhale 2.5 [facility] 0.02 % 5-03 mL every 6 ity of nebulizer 00:00: (six) [place] solution 00 hours as Medical needed for Branch Wheezing, Shortness of Breath, Bronchospa sm or Chest tightness. guaiFENesin 2023-0 Yes [id number] 200mg Take 10 mL [facility] 100 mg/5 mL 5-03 by mouth ity of solution 00:00: every 6 [place] 00 (six) Medical hours as Branch needed for Cough. ipratropium 2023-0 Yes [id number] .5mg Inhale 2.5 [facility] 0.02 % 5-03 mL every 6 ity of nebulizer 00:00: (six) [place] solution 00 hours as Medical needed for Branch Wheezing, Shortness of Breath, Bronchospa sm or Chest tightness. guaiFENesin 2023-0 Yes [id number] 200mg Take 10 mL [facility] 100 mg/5 mL 5-03 by mouth ity of solution 00:00: every 6 [place] 00 (six) Medical hours as Branch needed for Cough. ipratropium 2023-0 Yes [id number] .5mg Inhale 2.5 [facility] 0.02 % 5-03 mL every 6 ity of nebulizer 00:00: (six) [place] solution 00 hours as Medical needed for Branch Wheezing, Shortness of Breath, Bronchospa sm or Chest tightness. guaiFENesin 2023-0 Yes [id number] 200mg Take 10 mL [facility] 100 mg/5 mL 5-03 by mouth ity of solution 00:00: every 6 [place] 00 (six) Medical hours as Branch needed for Cough. guaiFENesin 2023-0 Yes [id number] 200mg Take 10 mL [facility] 100 mg/5 mL 5-03 by mouth ity of solution 00:00: every 6 [place] 00 (six) Medical hours as Branch needed for Cough. guaiFENesin 2023-0 Yes [id number] 200mg Take 10 mL [facility] 100 mg/5 mL 5-03 by mouth ity of solution 00:00: every 6 [place] 00 (six) Medical hours as Branch needed for Cough. guaiFENesin 2023-0 Yes [id number] 200mg Take 10 mL [facility] 100 mg/5 mL 5-03 by mouth ity of solution 00:00: every 6 [place] 00 (six) Medical hours as Branch needed for Cough. guaiFENesin 2023-0 Yes [id number] 200mg Take 10 mL [facility] 100 mg/5 mL 5-03 by mouth ity of solution 00:00: every 6 [place] 00 (six) Medical hours as Branch needed for Cough. guaiFENesin 2023-0 Yes [id number] 200mg Take 10 mL [facility] 100 mg/5 mL 5-03 by mouth ity of solution 00:00: every 6 [place] 00 (six) Medical hours as Branch needed for Cough. guaiFENesin 2023-0 Yes [id number] 200mg Take 10 mL [facility] 100 mg/5 mL 5-03 by mouth ity of solution 00:00: every 6 [place] 00 (six) Medical hours as Branch needed for Cough. guaiFENesin 2023-0 Yes [id number] 200mg Take 10 mL [facility] 100 mg/5 mL 5-03 by mouth ity of solution 00:00: every 6 [place] 00 (six) Medical hours as Branch needed for Cough. ipratropium 2022- No [id number] .5mg Inhale 2.5 [facility] 0.02 % 01-19 mL every 6 ity of nebulizer 00:00: 00:00 (six) [place] solution 00 :00 hours as Medical needed for Branch Wheezing, Shortness of Breath, Bronchospa sm or Chest tightness. levoFLOXaci 2022- Yes [id number] 500mg Take 1 [facility] n 500 mg 01-19-08 tablet by ity o f tablet 00:00: 04:59 mouth in [place] 00 :00 the [facility] for 4 days. levoFLOXaci 2022- Yes [id number] 500mg Take 1 [facility] n 500 mg 01-19-08 tablet by ity o f tablet 00:00: 04:59 mouth in [place] 00 :00 the [facility] for 4 days. levoFLOXaci 2022- Yes [id number] 500mg Take 1 [facility] n 500 mg 01-19-08 tablet by ity o f tablet 00:00: 04:59 mouth in [place] 00 :00 the [facility] for 4 days. levoFLOXaci 2022- Yes [id number] 500mg Take 1 [facility] n 500 mg 01-19-08 tablet by ity o f tablet 00:00: 04:59 mouth in [place] 00 :00 the [facility] for 4 days. levoFLOXaci 2022- Yes [id number] 500mg Take 1 [facility] n 500 mg 01-19-08 tablet by ity o f tablet 00:00: 04:59 mouth in [place] 00 :00 the [facility] for 4 days. levoFLOXaci 2022- Yes [id number] 500mg Take 1 [facility] n 500 mg - 05-08 tablet by ity o f tablet 00:00: 04:59 mouth in [place] 00 :00 the [facility] for 4 days. levalbutero 2022-2022- No 1.25mg 1.25 mg, Univers l (XOPENEX) 01-17 Inhalation i ty of nebulizer 13:00: 11:56 , TID, [place] solution 00 :39 First dose Medic al 1.25 mg on Tue Branch 01/17/23 at 0800, Until Discontinu ed, Routine methylpredn 2022-0 2022- No 125mg 125 mg, U nivers isolone sod 01-17 Intravenou i ty of succ 12:00: 11:11 s, ONCE, 1 [place] (SOLU-MEDRO 00 :00 dose, On Medi lucho L) 01/17/23 Branch injection at 0700, 2 125 mg mL ipratropium 2022-0 2022- No .5mg 0.5 mg, Un igor (ATROVENT) 01-17 Inhalation it y of 0.02 % 11:45: 11:42 , ONCE, 1 [place] nebulizer 00 :00 dose, On Medica l solution Tue01/17/23 Branc h 0.5 mg at 0645, MICHAEL albuterol 2022-0 Yes [id number] 2{puff} Inhale 2 [facility] 90 5-01 Puffs ity of mcg/actuati 00:00: every 4 [place] as on inhaler 00 (four) Medical hours as Branch needed for Wheezing or Shortness of Breath. albuterol 2022-0 Yes [id number] 2.5mg Inhale 3 [facility] 2.5 mg /3 5-01 mL every 4 ity of mL (0.083 00:00: (four) [place] %) 00 hours. May Medical nebulizer also Branch solution nebulize one extra every 6 hours. predniSONE 2022-0 Yes [id number] 50mg Take 1 [facility] 50 mg 5-01 tablet by ity of tablet 00:00: mouth in [place] 00 the Medical morning. Branch benzonatate 2022-0 Yes [id number] 200mg Take 1 [facility] 200 mg 5-01 capsule by ity of capsule 00:00: mouth 3 [place] 00 (three) Medical times Branch daily as needed for Cough. ipratropium 3-0 Yes [id number] .5mg Inhale 2.5 [facility] 0.02 % 5-01 mL every 6 ity of nebulizer 00:00: (six) [place] solution 00 hours as Medical needed for Branch Wheezing, Shortness of Breath, Bronchospa sm or Chest tightness. albuterol 2022-0 Yes [id number] 2{puff} Inhale 2 [facility] 90 5-01 Puffs ity of mcg/actuati 00:00: every 4 [place] as on inhaler 00 (four) Medical hours as Branch needed for Wheezing or Shortness of Breath. albuterol 3-0 Yes [id number] 2.5mg Inhale 3 [facility] 2.5 mg /3 5-01 mL every 4 ity of mL (0.083 00:00: (four) [place] %) 00 hours. May Medical nebulizer also Branch solution nebulize one extra every 6 hours. benzonatate 3-0 Yes [id number] 200mg Take 1 [facility] 200 mg 5-01 capsule by ity of capsule 00:00: mouth 3 (three) Medical times Branch daily as needed for Cough. albuterol 3-0 Yes [id number] 2{puff} Inhale 2 [facility] 90 5-01 Puffs ity of mcg/actuati 00:00: every 4 [place] as on inhaler 00 (four) Medical hours as Branch needed for Wheezing or Shortness of Breath. albuterol 3-0 Yes [id number] 2.5mg Inhale 3 [facility] 2.5 mg /3 5-01 mL every 4 ity of mL (0.083 00:00: (four) [place] %) 00 hours. May Medical nebulizer also Branch solution nebulize one extra every 6 hours. benzonatate 3-0 Yes [id number] 200mg Take 1 [facility] 200 mg 5-01 capsule by ity of capsule 00:00: mouth 3 (three) Medical times Branch daily as needed for Cough. albuterol 3-0 Yes [id number] 2{puff} Inhale 2 [facility] 90 5-01 Puffs ity of mcg/actuati 00:00: every 4 [place] as on inhaler 00 (four) Medical hours as Branch needed for Wheezing or Shortness of Breath. albuterol 2023-0 Yes [id number] 2.5mg Inhale 3 [facility] 2.5 mg /3 5-01 mL every 4 ity of mL (0.083 00:00: (four) [place] %) 00 hours. May Medical nebulizer also Branch solution nebulize one extra every 6 hours. benzonatate 2023-0 Yes [id number] 200mg Take 1 [facility] 200 mg 5-01 capsule by ity of capsule 00:00: mouth 3 (three) Medical times Branch daily as needed for Cough. albuterol 2023-0 Yes [id number] 2{puff} Inhale 2 [facility] 90 5-01 Puffs ity of mcg/actuati 00:00: every 4 [place] as on inhaler 00 (four) Medical hours as Branch needed for Wheezing or Shortness of Breath. albuterol 2022-0 Yes [id number] 2.5mg Inhale 3 [facility] 2.5 mg /3 5-01 mL every 4 ity of mL (0.083 00:00: (four) [place] %) 00 hours. May Medical nebulizer also Branch solution nebulize one extra every 6 hours. benzonatate 2022-0 Yes [id number] 200mg Take 1 [facility] 200 mg 5-01 capsule by ity of capsule 00:00: mouth 3 [place] 00 (three) Medical times Branch daily as needed for Cough. albuterol 2022-0 Yes [id number] 2{puff} Inhale 2 [facility] 90 5-01 Puffs ity of mcg/actuati 00:00: every 4 [place] as on inhaler 00 (four) Medical hours as Branch needed for Wheezing or Shortness of Breath. albuterol 2022-0 Yes [id number] 2.5mg Inhale 3 [facility] 2.5 mg /3 5-01 mL every 4 ity of mL (0.083 00:00: (four) [place] %) 00 hours. May Medical nebulizer also Branch solution nebulize one extra every 6 hours. benzonatate 2022-0 Yes [id number] 200mg Take 1 [facility] 200 mg 5-01 capsule by ity of capsule 00:00: mouth 3 [place] 00 (three) Medical times Branch daily as needed for Cough. albuterol 2022-0 Yes [id number] 2{puff} Inhale 2 [facility] 90 5-01 Puffs ity of mcg/actuati 00:00: every 4 [place] as on inhaler 00 (four) Medical hours as Branch needed for Wheezing or Shortness of Breath. albuterol 2022-0 Yes [id number] 2.5mg Inhale 3 [facility] 2.5 mg /3 5-01 mL every 4 ity of mL (0.083 00:00: (four) [place] %) 00 hours. May Medical nebulizer also Branch solution nebulize one extra every 6 hours. benzonatate 2022-0 Yes [id number] 200mg Take 1 [facility] 200 mg 5-01 capsule by ity of capsule 00:00: mouth 3 (three) Medical times Branch daily as needed for Cough. albuterol 2022-0 Yes [id number] 2{puff} Inhale 2 [facility] 90 5-01 Puffs ity of mcg/actuati 00:00: every 4 [place] on inhaler 00 (four) Medical hours as Branch needed for Wheezing or Shortness of Breath. albuterol 2022-0 Yes [id number] 2.5mg Inhale 3 [facility] 2.5 mg /3 5-01 mL every 4 ity of mL (0.083 00:00: (four) [place] %) 00 hours. May Medical nebulizer also Branch solution nebulize one extra every 6 hours. benzonatate 2022-0 Yes [id number] 200mg Take 1 [facility] 200 mg 5-01 capsule by ity of capsule 00:00: mouth 3 (three) Medical times Branch daily as needed for Cough. albuterol 2022-0 Yes [id number] 2{puff} Inhale 2 [facility] 90 5-01 Puffs ity of mcg/actuati 00:00: every 4 [place] as on inhaler 00 (four) Medical hours as Branch needed for Wheezing or Shortness of Breath. albuterol 2022-0 Yes [id number] 2.5mg Inhale 3 [facility] 2.5 mg /3 5-01 mL every 4 ity of mL (0.083 00:00: (four) [place] %) 00 hours. May Medical nebulizer also Branch solution nebulize one extra every 6 hours. benzonatate 2022-0 Yes [id number] 200mg Take 1 [facility] 200 mg 5-01 capsule by ity of capsule 00:00: mouth 3 (three) Medical times Branch daily as needed for Cough. albuterol 2022-0 Yes [id number] 2{puff} Inhale 2 [facility] 90 5-01 Puffs ity of mcg/actuati 00:00: every 4 [place] on inhaler 00 (four) Medical hours as Branch needed for Wheezing or Shortness of Breath. albuterol 3-0 Yes [id number] 2.5mg Inhale 3 [facility] 2.5 mg /3 5-01 mL every 4 ity of mL (0.083 00:00: (four) [place] %) 00 hours. May Medical nebulizer also Branch solution nebulize one extra every 6 hours. benzonatate 2022-0 Yes [id number] 200mg Take 1 [facility] 200 mg 5-01 capsule by ity of capsule 00:00: mouth 3 [place] 00 (three) Medical times Branch daily as needed for Cough. albuterol 2022-0 Yes [id number] 2{puff} Inhale 2 [facility] 90 5-01 Puffs ity of mcg/actuati 00:00: every 4 [place] as on inhaler 00 (four) Medical hours as Branch needed for Wheezing or Shortness of Breath. albuterol 2022-0 Yes [id number] 2.5mg Inhale 3 [facility] 2.5 mg /3 5-01 mL every 4 ity of mL (0.083 00:00: (four) [place] %) 00 hours. May Medical nebulizer also Branch solution nebulize one extra every 6 hours. benzonatate 2022-0 Yes [id number] 200mg Take 1 [facility] 200 mg 5-01 capsule by ity of capsule 00:00: mouth 3 (three) Medical times Branch daily as needed for Cough. albuterol 2022-0 Yes [id number] 2{puff} Inhale 2 [facility] 90 5-01 Puffs ity of mcg/actuati 00:00: every 4 [place] as on inhaler 00 (four) Medical hours as Branch needed for Wheezing or Shortness of Breath. albuterol 2022-0 Yes [id number] 2.5mg Inhale 3 [facility] 2.5 mg /3 5-01 mL every 4 ity of mL (0.083 00:00: (four) [place] %) 00 hours. May Medical nebulizer also Branch solution nebulize one extra every 6 hours. benzonatate 3-0 Yes [id number] 200mg Take 1 [facility] 200 mg 5-01 capsule by ity of capsule 00:00: mouth 3 (three) Medical times Branch daily as needed for Cough. albuterol 2022-0 Yes [id number] 2{puff} Inhale 2 [facility] 90 5-01 Puffs ity of mcg/actuati 00:00: every 4 [place] as on inhaler 00 (four) Medical hours as Branch needed for Wheezing or Shortness of Breath. albuterol 2023-0 Yes [id number] 2.5mg Inhale 3 [facility] 2.5 mg /3 5-01 mL every 4 ity of mL (0.083 00:00: (four) [place] %) 00 hours. May Medical nebulizer also Branch solution nebulize one extra every 6 hours. benzonatate 2022-0 Yes [id number] 200mg Take 1 [facility] 200 mg 5-01 capsule by ity of capsule 00:00: mouth 3 [place] 00 (three) Medical times Branch daily as needed for Cough. albuterol 2022-0 Yes [id number] 2{puff} Inhale 2 [facility] 90 5-01 Puffs ity of mcg/actuati 00:00: every 4 [place] as on inhaler 00 (four) Medical hours as Branch needed for Wheezing or Shortness of Breath. albuterol 2022-0 Yes [id number] 2.5mg Inhale 3 [facility] 2.5 mg /3 5-01 mL every 4 ity of mL (0.083 00:00: (four) [place] %) 00 hours. May Medical nebulizer also Branch solution nebulize one extra every 6 hours. benzonatate 2022-0 Yes [id number] 200mg Take 1 [facility] 200 mg 5-01 capsule by ity of capsule 00:00: mouth 3 (three) Medical times Branch daily as needed for Cough. albuterol 2022-0 Yes [id number] 2{puff} Inhale 2 [facility] 90 5-01 Puffs ity of mcg/actuati 00:00: every 4 [place] as on inhaler 00 (four) Medical hours as Branch needed for Wheezing or Shortness of Breath. albuterol 2022-0 Yes [id number] 2.5mg Inhale 3 [facility] 2.5 mg /3 5-01 mL every 4 ity of mL (0.083 00:00: (four) [place] %) 00 hours. May Medical nebulizer also Branch solution nebulize one extra every 6 hours. benzonatate 2022-0 Yes [id number] 200mg Take 1 [facility] 200 mg 5-01 capsule by ity of capsule 00:00: mouth 3 [place] 00 (three) Medical times Branch daily as needed for Cough. albuterol 2022-0 Yes [id number] 2{puff} Inhale 2 [facility] 90 5-01 Puffs ity of mcg/actuati 00:00: every 4 [place] as on inhaler 00 (four) Medical hours as Branch needed for Wheezing or Shortness of Breath. albuterol 3-0 Yes [id number] 2.5mg Inhale 3 [facility] 2.5 mg /3 5-01 mL every 4 ity of mL (0.083 00:00: (four) [place] %) 00 hours. May Medical nebulizer also Branch solution nebulize one extra every 6 hours. benzonatate 3-0 Yes [id number] 200mg Take 1 [facility] 200 mg 5-01 capsule by ity of capsule 00:00: mouth 3 (three) Medical times Branch daily as needed for Cough. albuterol 2022-0 Yes [id number] 2{puff} Inhale 2 [facility] 90 5-01 Puffs ity of mcg/actuati 00:00: every 4 [place] as on inhaler 00 (four) Medical hours as Branch needed for Wheezing or Shortness of Breath. albuterol 2022-0 Yes [id number] 2.5mg Inhale 3 [facility] 2.5 mg /3 5-01 mL every 4 ity of mL (0.083 00:00: (four) [place] %) 00 hours. May Medical nebulizer also Branch solution nebulize one extra every 6 hours. benzonatate 2022-0 Yes [id number] 200mg Take 1 [facility] 200 mg 5-01 capsule by ity of capsule 00:00: mouth 3 (three) Medical times Branch daily as needed for Cough. albuterol 3-0 Yes [id number] 2.5mg Inhale 3 [facility] 2.5 mg /3 5-01 mL every 4 ity of mL (0.083 00:00: (four) [place] %) 00 hours. May Medical nebulizer also Branch solution nebulize one extra every 6 hours. benzonatate 3-0 Yes [id number] 200mg Take 1 [facility] 200 mg 5-01 capsule by ity of capsule 00:00: mouth 3 (three) Medical times Branch daily as needed for Cough. albuterol 3-0 Yes [id number] 2.5mg Inhale 3 [facility] 2.5 mg /3 5-01 mL every 4 ity of mL (0.083 00:00: (four) [place] %) 00 hours. May Medical nebulizer also Branch solution nebulize one extra every 6 hours. benzonatate 2023-0 Yes [id number] 200mg Take 1 [facility] 200 mg 5-01 capsule by ity of capsule 00:00: mouth 3 (three) Medical times Branch daily as needed for Cough. albuterol 2023-0 Yes [id number] 2.5mg Inhale 3 [facility] 2.5 mg /3 5-01 mL every 4 ity of mL (0.083 00:00: (four) [place] %) 00 hours. May Medical nebulizer also Branch solution nebulize one extra every 6 hours. benzonatate 3-0 Yes [id number] 200mg Take 1 [facility] 200 mg 5-01 capsule by ity of capsule 00:00: mouth 3 (three) Medical times Branch daily as needed for Cough. albuterol 3-0 Yes [id number] 2.5mg Inhale 3 [facility] 2.5 mg /3 5-01 mL every 4 ity of mL (0.083 00:00: (four) [place] %) 00 hours. May Medical nebulizer also Branch solution nebulize one extra every 6 hours. albuterol 3-0 Yes [id number] 2.5mg Inhale 3 [facility] 2.5 mg /3 5-01 mL every 4 ity of mL (0.083 00:00: (four) [place] %) 00 hours. May Medical nebulizer also Branch solution nebulize one extra every 6 hours. albuterol 2023-0 Yes [id number] 2.5mg Inhale 3 [facility] 2.5 mg /3 5-01 mL every 4 ity of mL (0.083 00:00: (four) [place] %) 00 hours. May Medical nebulizer also Branch solution nebulize one extra every 6 hours. albuterol 2023-0 Yes [id number] 2.5mg Inhale 3 [facility] 2.5 mg /3 5-01 mL every 4 ity of mL (0.083 00:00: (four) [place] %) 00 hours. May Medical nebulizer also Branch solution nebulize one extra every 6 hours. albuterol 2023-0 Yes [id number] 2.5mg Inhale 3 [facility] 2.5 mg /3 5-01 mL every 4 ity of mL (0.083 00:00: (four) [place] %) 00 hours. May Medical nebulizer also Branch solution nebulize one extra every 6 hours. albuterol 2022- Yes [id number] 2.5mg Inhale 3 [facility] 2.5 mg /3 5-01 mL every 4 ity of mL (0.083 00:00: (four) [place] %) 00 hours. May Medical nebulizer also Branch solution nebulize one extra every 6 hours. albuterol 2022- No [id number] 2.5mg Inhale 3 [facility] 2.5 mg /3 5-01 06-15 mL every 4 ity of mL (0.083 00:00: 00:00 (four) [place] %) 00 :00 hours. May Medical nebulizer also Branch solution nebulize one extra every 6 hours. benzonatate 2022- No [id number] 200mg Take 1 [facility] 200 mg 01-17- capsule by ity of capsule 00:00: 00:00 mouth 3 [place] 00 :00 (three) Medical times Branch daily as needed for Cough. albuterol 2022- No [id number] 2{puff} Inhale 2 [facility] 90 - 05-19 Puffs ity of mcg/actuati 00:00: 00:00 every 4 [place] on inhaler 00 :00 (four) Medical hours as Branch needed for Wheezing or Shortness of Breath. predniSONE 2022- No [id number] 50mg Take 1 [facility] 50 mg 01-17 05-03 tablet by ity of tablet 00:00: 00:00 mouth in [place] 00 :00 the Medical morning. Branch ipratropium 2022- No [id number] .5mg Inhale 2.5 [facility] 0.02 % 01-17 05-03 mL every 6 ity of nebulizer 00:00: 00:00 (six) [place] solution 00 :00 hours as Medical needed for Branch Wheezing, Shortness of Breath, Bronchospa sm or Chest tightness. potassium 3-0 Yes 1{tbl} Take 1 Univ ers chloride 4-21 tablet by ity of (KCL-20 14:37: mouth in [place] ORAL) 58 the Medical morning Branch and 1 tablet in the evening. potassium 3-0 Yes 1{tbl} Take 1 Univ ers chloride [...] by ity of tablet 14:36: mouth in [place] 57 the Medical morning Branch and 1 tablet in the evening. rivaroxaban 2023-0 Yes 15mg Take 1 Univ ers 15 mg 4-21 tablet by ity of tablet 14:36: mouth in [place] [address] the Medical morning. Branch ASPIRIN 2023-0 Yes 81mg Take 81 mg Univ ers ORAL 4-21 by mouth ity of 14:36: in the [place] [address] morning. Medical tablet Branch benazepriL 2023-0 Yes 10mg Take 1 Unive rs 10 mg 4-21 tablet by ity of tablet 14:36: mouth in [place] [address] the Medical morning. Branch busPIRone 2023-0 Yes 10mg Take 1 Univer s 10 mg 4-21 tablet by ity of tablet 14:36: mouth in [place] [address] the Medical morning Branch and 1 tablet in the evening. rivaroxaban 2023-0 Yes 15mg Take 1 Univ ers 15 mg 4-21 tablet by ity of tablet 14:36: mouth in [place] [address] the Medical morning. Branch ASPIRIN 2023-0 Yes 81mg Take 81 mg Univ ers ORAL 4-21 by mouth ity of 14:36: in the [place] [address] morning. Medical tablet Branch benazepriL 2023-0 Yes 10mg Take 1 Unive rs 10 mg 4-21 tablet by ity of tablet 14:36: mouth in [place] [address] the Medical morning. Branch busPIRone 2023-0 Yes 10mg Take 1 Univer s 10 mg 4-21 tablet by ity of tablet 14:36: mouth in [place] [address] the Medical morning Branch and 1 tablet in the evening. rivaroxaban 2023-0 Yes 15mg Take 1 Univ ers 15 mg 4-21 tablet by ity of tablet 14:36: mouth in [place] [address] the Medical morning. Branch ASPIRIN 2023-0 Yes 81mg Take 81 mg Univ ers ORAL 4-21 by mouth ity of 14:36: in the [place] [address] morning. Medical tablet Branch benazepriL 2023-0 Yes 10mg Take 1 Un[facility] rs 10 mg 4-21 tablet by ity of tablet 14:36: mouth in [place] [address] the Medical morning. Branch busPIRone 2023-0 Yes 10mg Take 1 Univer s 10 mg 4-21 tablet by ity of tablet 14:36: mouth in [place] [address] the Medical morning Branch and 1 tablet in the evening. rivaroxaban 2023-0 Yes 15mg Take 1 Univ ers 15 mg 4-21 tablet by ity of tablet 14:36: mouth in [place] [address] the Medical morning. Branch ASPIRIN 2023-0 Yes 81mg Take 81 mg Univ ers ORAL 4-21 by mouth ity of 14:36: in the [place] [address] morning. Medical tablet Branch benazepriL 2023-0 Yes 10mg Take 1 Un[facility] rs 10 mg 4-21 tablet by ity of tablet 14:36: mouth in [place] [address] the Medical morning. Branch donepeziL 5 3-0 Yes 5mg Take 1 Univ ers mg tablet 4-21 tablet by ity o f 00:00: mouth in [place] 00 the Medical morning. Branch memantine 5 2023-0 Yes 5mg Take 1 Univ ers mg tablet 4-21 tablet by ity o f 00:00: mouth in [place] 00 the Medical morning. Branch donepeziL 5 2023-0 Yes 5mg Take 1 Univ ers mg tablet 4-21 tablet by ity o f 00:00: mouth in [place] 00 the Medical morning. Branch memantine 5 2023-0 Yes 5mg Take 1 Univ ers mg tablet 4-21 tablet by ity o f 00:00: mouth in [place] 00 the Medical morning. Branch donepeziL 5 2023-0 Yes 5mg Take 1 Univ ers mg tablet 4-21 tablet by ity o f 00:00: mouth in [place] 00 the Medical morning. Branch memantine 5 2023-0 Yes 5mg Take 1 [facility] mg tablet 4-21 tablet by ity o f 00:00: mouth in [place] 00 the Medical morning. Branch donepeziL 5 2023-0 Yes 5mg Take 1 [facility] mg tablet 4-21 tablet by ity o f 00:00: mouth in [place] 00 the Medical morning. Branch memantine 5 2023-0 Yes 5mg Take 1 [facility] ers mg tablet 4-21 tablet by ity o f 00:00: mouth in [place] 00 the Medical morning. Branch donepeziL 5 2023-0 Yes 5mg Take 1 [facility] mg tablet 4-21 tablet by ity o f 00:00: mouth in [place] 00 the Medical morning. Branch memantine 5 2023-0 Yes 5mg Take 1 [facility] mg tablet 4-21 tablet by ity o f 00:00: mouth in [place] the Medical morning. Branch donepeziL 5 2023-0 Yes 5mg Take 1 [facility] mg tablet 4-21 tablet by ity o f 00:00: mouth in [place] the Medical morning. Branch memantine 5 2023-0 Yes 5mg Take 1 [facility] mg tablet 4-21 tablet by ity o f 00:00: mouth in [place] the Medical morning. Branch donepeziL 5 2023-0 Yes 5mg Take 1 [facility] mg tablet 4-21 tablet by ity o f 00:00: mouth in [place] the Medical morning. Branch memantine 5 2023-0 Yes 5mg Take 1 [facility] mg tablet 4-21 tablet by ity o f 00:00: mouth in [place] the Medical morning. Branch donepeziL 5 2023-0 Yes 5mg Take 1 [facility] mg tablet 4-21 tablet by ity o f 00:00: mouth in [place] the Medical morning. Branch memantine 5 2023-0 Yes 5mg Take 1 [facility] mg tablet 4-21 tablet by ity o f 00:00: mouth in [place] 00 the Medical morning. Branch donepeziL 5 2023-0 Yes 5mg Take 1 [facility] ers mg tablet 4-21 tablet by ity o f 00:00: mouth in [place] 00 the Medical morning. Branch memantine 5 2023-0 Yes 5mg Take 1 [facility] mg tablet 4-21 tablet by ity o f 00:00: mouth in [place] 00 the Medical morning. Branch donepeziL 5 2023-0 Yes 5mg Take 1 [facility] mg tablet 4-21 tablet by ity o f 00:00: mouth in [place] 00 the Medical morning. Branch memantine 5 2023-0 Yes 5mg Take 1 [facility] mg tablet 4-21 tablet by ity o f 00:00: mouth in [place] 00 the Medical morning. Branch donepeziL 5 2023-0 Yes 5mg Take 1 [facility] mg tablet 4-21 tablet by ity o f 00:00: mouth in [place] 00 the Medical morning. Branch memantine 5 2023-0 Yes 5mg Take 1 [facility] mg tablet 4-21 tablet by ity o f 00:00: mouth in [place] 00 the Medical morning. Branch donepeziL 5 2023-0 Yes 5mg Take 1 [facility] mg tablet 4-21 tablet by ity o f 00:00: mouth in [place] 00 the Medical morning. Branch memantine 5 2023-0 Yes 5mg Take 1 [facility] mg tablet 4-21 tablet by ity o f 00:00: mouth in [place] the Medical morning. Branch donepeziL 5 2023-0 Yes 5mg Take 1 [facility] mg tablet 4-21 tablet by ity o f 00:00: mouth in [place] the Medical morning. Branch memantine 5 2023-0 Yes 5mg Take 1 [facility] mg tablet 4-21 tablet by ity o f 00:00: mouth in [place] the Medical morning. Branch donepeziL 5 2023-0 Yes 5mg Take 1 [facility] mg tablet 4-21 tablet by ity o f 00:00: mouth in [place] the Medical morning. Branch memantine 5 2023-0 Yes 5mg Take 1 [facility] mg tablet 4-21 tablet by ity o f 00:00: mouth in [place] the Medical morning. Branch donepeziL 5 2023-0 Yes 5mg Take 1 [facility] mg tablet 4-21 tablet by ity o f 00:00: mouth in [place] 00 the Medical morning. Branch memantine 5 2023-0 Yes 5mg Take 1 [facility] mg tablet 4-21 tablet by ity o f 00:00: mouth in [place] 00 the Medical morning. Branch donepeziL 5 2023-0 Yes 5mg Take 1 [facility] mg tablet 4-21 tablet by ity o f 00:00: mouth in [place] 00 the Medical morning. Branch memantine 5 2023-0 Yes 5mg Take 1 [facility] mg tablet 4-21 tablet by ity o f 00:00: mouth in [place] 00 the Medical morning. Branch donepeziL 5 2023-0 Yes 5mg Take 1 [facility] mg tablet 4-21 tablet by ity o f 00:00: mouth in [place] 00 the Medical morning. Branch memantine 5 2023-0 Yes 5mg Take 1 [facility] mg tablet 4-21 tablet by ity o f 00:00: mouth in [place] 00 the Medical morning. Branch donepeziL 5 2023-0 Yes 5mg Take 1 [facility] mg tablet 4-21 tablet by ity o f 00:00: mouth in [place] the Medical morning. Branch memantine 5 2023-0 Yes 5mg Take 1 [facility] mg tablet 4-21 tablet by ity o f 00:00: mouth in [place] the Medical morning. Branch donepeziL 5 2023-0 Yes 5mg Take 1 [facility] mg tablet 4-21 tablet by ity o f 00:00: mouth in [place] the Medical morning. Branch memantine 5 2023-0 Yes 5mg Take 1 [facility] mg tablet 4-21 tablet by ity o f 00:00: mouth in [place] the Medical morning. Branch donepeziL 5 2023-0 Yes 5mg Take 1 [facility] mg tablet 4-21 tablet by ity o f 00:00: mouth in [place] the Medical morning. Branch memantine 5 2023-0 Yes 5mg Take 1 [facility] mg tablet 4-21 tablet by ity o f 00:00: mouth in [place] the Medical morning. Branch donepeziL 5 2023-0 Yes 5mg Take 1 [facility] mg tablet 4-21 tablet by ity o f 00:00: mouth in [place] the Medical morning. Branch memantine 5 2023-0 Yes 5mg Take 1 [facility] mg tablet 4-21 tablet by ity o f 00:00: mouth in [place] the Medical morning. Branch donepeziL 5 2023-0 Yes 5mg Take 1 [facility] mg tablet 4-21 tablet by ity o f 00:00: mouth in [place] 00 the Medical morning. Branch memantine 5 2023-0 Yes 5mg Take 1 [facility] mg tablet 4-21 tablet by ity o f 00:00: mouth in [place] 00 the Medical morning. Branch donepeziL 5 2023-0 Yes 5mg Take 1 [facility] mg tablet 4-21 tablet by ity o f 00:00: mouth in [place] 00 the Medical morning. Branch memantine 5 2023-0 Yes 5mg Take 1 [facility] mg tablet 4-21 tablet by ity o f 00:00: mouth in [place] 00 the Medical morning. Branch donepeziL 5 2023-0 Yes 5mg Take 1 [facility] mg tablet 4-21 tablet by ity o f 00:00: mouth in [place] 00 the Medical morning. Branch memantine 5 2023-0 Yes 5mg Take 1 [facility] mg tablet 4-21 tablet by ity o f 00:00: mouth in [place] 00 the Medical morning. Branch donepeziL 5 2023-0 Yes 5mg Take 1 [facility] mg tablet 4-21 tablet by ity o f 00:00: mouth in [place] 00 the Medical morning. Branch memantine 5 2023-0 Yes 5mg Take 1 [facility] mg tablet 4-21 tablet by ity o f 00:00: mouth in [place] 00 the Medical morning. Branch donepeziL 5 2023-0 Yes 5mg Take 1 [facility] mg tablet 4-21 tablet by ity o f 00:00: mouth in [place] 00 the Medical morning. Branch memantine 5 2023-0 Yes 5mg Take 1 [facility] mg tablet 4-21 tablet by ity o f 00:00: mouth in [place] 00 the Medical morning. Branch donepeziL 5 2023-0 Yes 5mg Take 1 [facility] mg tablet 4-21 tablet by ity o f 00:00: mouth in [place] 00 the Medical morning. Branch memantine 5 2023-0 Yes 5mg Take 1 [facility] mg tablet 4-21 tablet by ity o f 00:00: mouth in [place] 00 the Medical morning. Branch donepeziL 5 2023-0 2023- No 5mg Take 1 [facility] vers mg tablet 01-07- tablet by ity of 00:00: 00:00 mouth in [place] 00 :00 the Medical morning. Branch memantine 5 2023-0 2023- No 5mg Take 1 [facility] vers mg tablet 01-07- tablet by ity of 00:00: 00:00 mouth in [place] 00 :00 the Medical morning. Branch donepeziL 5 2023-0 2023- No 5mg Take 1 [facility] vers mg tablet 4-09 03- tablet by ity of 00:00: 00:00 mouth in [place] 00 :00 the Medical morning. Branch memantine 5 2022-0 3- No 5mg Take 1 [facility] vers mg tablet 01-07 tablet by ity of 00:00: 00:00 mouth in [place] 00 :00 the Medical morning. Branch tamsulosin 2023-0 2023- No [id number] .4mg Take 1 [facility] 0.4 mg 24 3-27 -27 capsule by ity of hr capsule 00:00: 04:59 mouth in [place] 00 :00 the Medical morning Branch for 30 days. tamsulosin 2023-0 2023- No [id number] .4mg Take 1 [facility] 0.4 mg 24 3-13 01- capsule by ity of hr capsule 00:00: 04:59 mouth in [place] 00 :00 the Medical morning Branch for 30 days. tamsulosin 2023-0 2023- No [id number] .4mg Take 1 [facility] 0.4 mg 24 3-13 01- capsule by ity of hr capsule 00:00: 04:59 mouth in [place] 00 :00 the Medical morning Branch for 30 days. tamsulosin 2023-0 2023- No [id number] .4mg Take 1 [facility] 0.4 mg 24 3-13 01- capsule by ity of hr capsule 00:00: 04:59 mouth in [place] 00 :00 the Medical morning Branch for 30 days. tamsulosin 2023-0 2023- No [id number] .4mg Take 1 [facility] 0.4 mg 24 3-13 01- capsule by ity of hr capsule 00:00: 04:59 mouth in [place] 00 :00 the Medical morning Branch for 30 days. tamsulosin 2023-0 2023- No [id number] .4mg Take 1 [facility] 0.4 mg 24 3-13 01-27 capsule by ity of hr capsule 00:00: 04:59 mouth in [place] 00 :00 the Medical morning Branch for 30 days. donepeziL 2023-0 Yes 5mg 5 mg, Univers (ARICEPT) 3-26 Oral, ity of tablet 5 mg 17:30: [place]ILY, [place] 00 First dose Medical on [place] [facility] 12/12/22 at 1230, Until Discontinu ed, Routine memantine 2023-0 Yes 5mg 5 mg, Univers (NAMENDA) 3-26 Oral, ity of tablet 5 mg 17:30: [place]ILY, [place] 00 First dose Medical on [place] [facility] 12/12/22 at 1230, Until Discontinu ed, Routine
administrative appeals tribunal member approving Restricted medication : TRAVIS ZENG busPIRone 3-0 Yes 10mg Take 1 [facility] 10 mg 3-26 tablet by ity of tablet 14:37: mouth in [place] [address] the Medical morning Branch and 1 tablet in the evening. rivaroxaban 2023-0 Yes 15mg Take 1 [facility] ers (XARELTO) 3-26 tablet by ity o f 15 mg 14:37: mouth in [place] tablet 13 the Medical morning. Branch aspirin 81 3-0 Yes 81mg Take 81 mg U nivers mg chewable 3-26 by mouth ity of tablet 14:37: in the [place] [address] morning. Medical tablet Branch busPIRone 3-0 Yes 10mg Take 1 [facility] 10 mg 3-26 tablet by ity of tablet 14:37: mouth in [place] [address] the Medical morning Branch and 1 tablet in the evening. rivaroxaban 2023-0 Yes 15mg Take 1 [facility] (XARELTO) 3-26 tablet by ity o f 15 mg 14:37: mouth in [place] tablet 13 the Medical morning. Branch busPIRone 3-0 Yes 10mg Take 1 [facility] 10 mg 3-26 tablet by ity of tablet 14:37: mouth in [place] [address] the Medical morning Branch and 1 tablet in the evening. rivaroxaban 2023-0 Yes 15mg Take 1 [facility] (XARELTO) 3-26 tablet by ity o f 15 mg 14:37: mouth in [place] tablet 13 the Medical morning. Branch aspirin 81 3-0 Yes 81mg Take 81 mg U nivers mg chewable 3-26 by mouth ity of tablet 14:37: in the [place] [address] morning. Medical tablet Branch busPIRone 2023-0 Yes 10mg Take 1 [facility] 10 mg 3-26 tablet by ity of tablet 14:37: mouth in [place] [address] the Medical morning Branch and 1 tablet in the evening. rivaroxaban 2023-0 Yes 15mg Take 1 [facility] (XARELTO) 3-26 tablet by ity o f 15 mg 14:37: mouth in [place] tablet 13 the Medical morning. Branch aspirin 81 Yes 81mg Take 81 mg U nivers mg chewable 12-12 by mouth ity of tablet 14:37: in the [place] 13 morning. Medical tablet Branch tamsulosin Yes .4mg 0.4 mg, Univ ers (FLOMAX) 12-12 Oral, ity of capsule 0.4 14:00: DAILY[place] First dose Medical on [facility] 12/12/22 at 0900, Until Discontinu ed, Routine aspirin EC Yes 81mg 81 mg, Unive rs tablet 81 12-12 Oral, ity of mg 14:00: DAILY, [place] 00 First dose Medical on [facility] 12/12/22 at 0900, Until Discontinu ed, Routine methylpredn Yes 40mg 40 mg, Univ ers isolone sod 12-12 Intravenou it y of succ 14:00: s, DAILY, [place] (SOLU-MEDRO 00 First dose Me dical L) (after Branch injection last 40 mg modificati on) on [place] 12/12/22 at 0900, Until Discontinu ed, Routine carvediloL 2022- No 25mg Take 1 [facility] ers 25 mg 12-12 tablet by ity of tablet 11:47: 00:00 mouth in [place] 13 :00 the Medical morning Branch and 1 tablet in the evening. Take with meals. busPIRone 2022- No 30mg Take 1 [facility] rs 30 mg 12-12 tablet by ity of tablet 11:47: 00:00 mouth in [place] 13 :00 the Medical morning Branch and 1 tablet in the evening. KCL 20 mEq 2022- No Take by Uni vers tablet 12-12 mouth 2 ity of 11:47: 00:00 (two) [place] 13 :00 times Medical daily. Branch benazepriL 2022- No 10mg Take 1 [facility] ers 10 mg 12-12 tablet by ity of tablet 11:47: 00:00 mouth in [place] 13 :00 the Medical morning. Branch hydroCHLORO 2022-0 2022- No 25mg Take 1 Uni vers thiazide 25 12-12 tablet by it y of mg tablet 11:47: 00:00 mouth in [place] 13 :00 the Medical morning. Branch melatonin Yes 6mg 6 mg, Univers (MELATIN) 3-26 Oral, QHS, ity of tablet 6 mg 02:00: First dose [place] 00 on [facility] 12/11/22 at [place] 2100, Until Discontinu ed, Routine atorvastati Yes 40mg 40 mg, Univ ers n (LIPITOR) 3-26 Oral, QHS, it y of tablet 40 02:00: First dose [place] mg 00 on [facility] 12/11/22 at [place] 2100, Until Discontinu ed, Routine carvediloL 2022- No [id number] 3.125mg Take 1 Univers 3.125 mg 3- 04-26 tablet by ity o f tablet 00:00: 04:59 mouth in [place] 00 :00 the [facility] and 1 tablet in the evening. Take with meals. Do all this for 30 days. atorvastati 2022- No [id number] 40mg Take 1 Univers n 40 mg 3-12 01- tablet by ity of tablet 00:00: 04:59 mouth at [place] 00 :00 [facility] for 30 Branch days. donepeziL 5 2022- No [id number] 5mg Take 1 Univers mg tablet -12 01- tablet by ity of 00:00: 04:59 mouth in [place] 00 :00 [facility] for 30 days. memantine 5 2022- No [id number] 5mg Take 1 Univers mg tablet -12 01-26 tablet by ity of 00:00: 04:59 mouth in [place] 00 :00 [facility] for 30 days. carvediloL 2022- No [id number] 3.125mg Take 1 Univers 3.125 mg 3-26 -26 tablet by ity o f tablet 00:00: 04:59 mouth in [place] 00 :00 [facility] and 1 tablet in the evening. Take with meals. Do all this for 30 days. atorvastati 2022- No [id number] 40mg Take 1 Univers n 40 mg 3-26 04-26 tablet by ity of tablet 00:00: 04:59 mouth at [place] 00 [facility] [facility] [facility] Branch days. donepeziL 5 2022- No [id number] 5mg Take 1 Univers mg tablet -12 01- tablet by ity of 00:00: 04:59 mouth in [place] 00 :00 the [facility] morning [place] for 30 days. memantine 5 2022- No [id number] 5mg Take 1 Univers mg tablet 3-12 01- tablet by ity of 00:00: 04:59 mouth in [place] 00 :00 the [facility] morning [place] for 30 days. carvediloL 2022- No [id number] 3.125mg Take 1 Univers 3.125 mg 3-12 01-26 tablet by ity o f tablet 00:00: 04:59 mouth in [place] 00 :00 the [facility] morning Branch and 1 tablet in the evening. Take with meals. Do all this for 30 days. atorvastati 2022- No [id number] 40mg Take 1 Univers n 40 mg -12 01- tablet by ity of tablet 00:00: 04:59 mouth at [place] 00 :00 bedtime Medical for 30 Branch days. donepeziL 5 2022- No [id number] 5mg Take 1 Univers mg tablet 12-12- tablet by ity of 00:00: 04:59 mouth in [place] 00 :00 the [facility] morning [place] for 30 days. memantine 5 2022- No [id number] 5mg Take 1 Univers mg tablet -12 01- tablet by ity of 00:00: 04:59 mouth in [place] 00 :00 the [facility] morning [place] for 30 days. carvediloL 2022- No [id number] 3.125mg Take 1 Univers 3.125 mg 3-12 01- tablet by ity o f tablet 00:00: 04:59 mouth in [place] 00 :00 the [facility] morning Branch and 1 tablet in the evening. Take with meals. Do all this for 30 days. atorvastati 2022- No [id number] 40mg Take 1 Univers n 40 mg 3-12 01-26 tablet by ity of tablet 00:00: 04:59 mouth at [place] 00 :00 bedtime Medical for 30 Branch days. carvediloL 2022- No [id number] 3.125mg Take 1 Univers 3.125 mg 3-12 01-26 tablet by ity o f tablet 00:00: 04:59 mouth in [place] 00 :00 the Medical morning Branch and 1 tablet in the evening. Take with meals. Do all this for 30 days. atorvastati 2022- No [id number] 40mg Take 1 Univers n 40 mg 3-12 01-26 tablet by ity of tablet 00:: 04:59 mouth at [place] 00 :00 bedtime [facility] for 30 Branch days. carvediloL 2022- No [id number] 3.125mg Take 1 Univers 3.125 mg 3-12 01-26 tablet by ity o f tablet 00:00: 04:59 mouth in [place] 00 :00 the [facility] morning [place] and 1 tablet in the evening. Take with meals. Do all this for 30 days. atorvastati 2022- No [id number] 40mg Take 1 Univers n 40 mg -12 01- tablet by ity of tablet 00:: 04:59 mouth at [place] 00 :00 [facility] for 30 Branch days. donepeziL 5 2022- No [id number] 5mg Take 1 Univers mg tablet -12 01- tablet by ity of 00:00: 00:00 mouth in [place] 00 :00 the [facility] morning [place] for 30 days. memantine 5 2022- No [id number] 5mg Take 1 Univers mg tablet -12 01-21 tablet by ity of 00:00: 00:00 mouth in [place] 00 :00 the [facility] morning [place] for 30 days. donepeziL 5 2022- No [id number] 5mg Take 1 Univers mg tablet -12 01-21 tablet by ity of 00:00: 00:00 mouth in [place] 00 :00 the [facility] morning [place] for 30 days. memantine 5 2022- No [id number] 5mg Take 1 Univers mg tablet -12 01-21 tablet by ity of 00:00: 00:00 mouth in [place] 00 :00 the [facility] morning [place] for 30 days. levalbutero Yes 1.25mg 1.25 mg, Univers l (XOPENEX) 3-25 Inhalation it y of nebulizer 17:00: , QID, [place] solution 00 First dose Medic al 1.25 mg (after Branch last modificati on) on [facility] 12/11/22 at 1200, Until Discontinu ed, Routine rivaroxaban 2022-0 Yes 15mg 15 mg, Univ ers (XARELTO) 3-25 Oral, ity of tablet 15 14:00: DAILY, [place] mg 00 First dose Medical on [facility] Branch 12/11/22 at 0900, Until Discontinu ed, Routine nicotine 2022-0 Yes 1{patch 1 Patch, Un igor (NICODERM) 25 } Topical, ity o f 21 mg/24 hr 13:45: Administer [place] patch 1 00 over 24 Medical Patch Hours, Branch Q24H, First dose on [facility] 12/11/22 at 0845, Until Discontinu ed, Routine ipratropium 0 Yes .5mg 0.5 mg, Uni vers (ATROVENT) 325 Inhalation ity of 0.02 % 13:00: , QID, [place] nebulizer 00 First dose Medi lucho solution on [facility] Branch 0.5 mg 12/11/22 at 0800, Until Discontinu ed carvediloL 0 Yes 3.125mg 3.125 mg, Univers (COREG) 3-25 Oral, BID ity of tablet 13:00: MEALS, [place] 3.125 mg 00 First dose Medic al on [facility] 12/11/22 at 0800, Until Discontinu ed, Routine busPIRone 0 Yes 10mg 10 mg, Univer s (BUSPAR) 3-25 Oral, BID, ity o f tablet 10 13:00: First dose [place] mg 00 on [facility] Medical 12/11/22 at Branch 0800, Until Discontinu ed, Routine methylpredn 2022- No 125mg 125 mg, U nivers isolone sod 12-11 03-25 Intravenou i ty of succ 05:00: 12:35 s, Q6H, [place] (SOLU-MEDRO 00 :32 First dose Me dical L) on [facility] Branch injection 12/11/22 at 125 mg 0000, Until Discontinu ed, Routine NaCl 0.9% 2022- No 1000mL at 100 Uni vers (NS) IV 12-11 03-25 mL/hr, IV ity of infusion 03:30: 14:48 Infusion, [place] 1,000 mL 00 :38 CONTINUOUS Medic al , Starting Branch on 12/10/22 at 2230, Until 12/11/22 at 0948, Routine albuterol 2022-0 Yes 2{puff} 2 Puff, [facility] (VENTOLIN) 3-25 Inhalation ity of inhaler 2 03:17: , Q4HPRN, [place] Puff 09 Starting Medical on Fri Branch 12/10/22 at 2217, Until Discontinu ed, Routine, Wheezing, Shortness of Breath ondansetron 2022-0 Yes 4mg 4 mg, Slow Univers (ZOFRAN 3-25 IV Push, ity of (PF)) 03:05: Q6HPRN, [place] injection 4 14 Starting Medi lucho mg on Fri Branch 12/10/22 at 2205, Until Discontinu ed, Routine, Nausea and Vomiting (N/V) HYDROcodone 2022-0 Yes 1{tbl} 1 tablet, Univers -acetaminop 3-25 Oral, ity of hen (NORCO) 03:05: Q6HPRN, [place] 10-325 mg 00 Starting Medica l tablet 1 on Fri Branch tablet 12/10/22 at 2205, Until Discontinu ed, Routine, Pain (scale 7-10) HYDROcodone 2022-0 202- No 1{tbl} 1 tablet, Univers -acetaminop 3-25 03-27 Oral, ity of hen (NORCO 03:04: 03:03 Q6HPRN, [place] 5) 5-325 mg 56 :56 Starting Medi lucho tablet 1 on Tue Branch tablet 12/10/22 at 2204, Until 12/12/22 at 2203, Routine, Pain (scale 4-6) acetaminoph 2022-0 Yes 650mg 650 mg, [facility] en 3-25 Oral, ity of (TYLENOL) 03:04: Q6HPRN, [place] tablet 650 50 Starting Medic al mg on Fri Branch 12/10/22 at 2204, Until Discontinu ed, Routine, Pain (scale 1-3) levalbutero 2022-0 202- No 1.25mg 1.25 mg, Univers l (XOPENEX) 12-11 03-25 Inhalation i ty of nebulizer 01:00: 15:57 , TID, [place] solution 00 :00 First dose Medic al 1.25 mg on Fri Branch 12/10/22 at 2000, Until Discontinu ed, Routine NaCl 0.9% 2023-0 2023- No 1000mL at 999 Uni vers (NS) bolus 3-25 03-25 mL/hr, ity of infusion 00:15: 03:18 1,000 mL, [place] 1,000 mL 00 :00 IV Medical Infusion, Branch ONCE, 1 dose, On 12/10/22 at 1915, STAT ipratropium 3-0 Yes .5mg 0.5 mg, Uni vers (ATROVENT) 3-24 Inhalation ity of 0.02 % 23:48: , Q4HPRN, [place] nebulizer 58 Starting Medica l solution on Tue Branch 0.5 mg 12/10/22 at 1848, Until Discontinu ed, Routine, Wheezing, Shortness of Breath NaCl 0.9% 2023-0 2023- No 500mL at 999 Univ ers (NS) bolus 3-18 03-18 mL/hr, 500 it y of infusion 16:15: 15:41 mL, IV [place] 500 mL 00 :58 Piggyback, Medical ONCE, 1 Branch dose, On 12/04/22 at 1115, STAT carvediloL 3-0 Yes 3.125mg Take 1 [facility] 3.125 mg 3-18 tablet by ity of tablet 12:44: mouth in [place] [address] the Medical morning Branch and 1 tablet in the evening. Take with meals. busPIRone 2023-0 Yes 10mg Take 1 Univer s 10 mg 3-18 tablet by ity of tablet 12:44: mouth in [place] [address] the Medical morning Branch and 1 tablet in the evening. busPIRone 2023-0 Yes 30mg Take 1 Univer s 30 mg 3-18 tablet by ity of tablet 12:44: mouth in [place] [address] the Medical morning Branch and 1 tablet in the evening. KCL 20 mEq 3-0 Yes Take by Univ ers tablet 3-18 mouth 2 ity of 12:44: (two) [place] [address] times Medical daily. Branch benazepriL 3-0 Yes 10mg Take 1 Unive rs 10 mg 3-18 tablet by ity of tablet 12:44: mouth in [place] 03 the Medical morning. Branch rivaroxaban 3-0 Yes 15mg Take 1 Univ ers (XARELTO) 3-18 tablet by ity o f 15 mg 12:44: mouth in [place] tablet 03 the Medical morning. Branch carvediloL 2023-0 Yes 3.125mg Take 1 [facility] 3.125 mg 3-18 tablet by ity of tablet 12:44: mouth in [place] 03 the Medical morning Branch and 1 tablet in the evening. Take with meals. busPIRone 2023-0 Yes 10mg Take 1 Univer s 10 mg 3-18 tablet by ity of tablet 12:44: mouth in [place] 03 the Medical morning Branch and 1 tablet in the evening. busPIRone 2023-0 Yes 30mg Take 1 Univer s 30 mg 3-18 tablet by ity of tablet 12:44: mouth in [place] 03 the Medical morning Branch and 1 tablet in the evening. KCL 20 mEq 2023-0 Yes Take by Univ ers tablet 3-18 mouth 2 ity of 12:44: (two) [place] [address] times Medical daily. Branch benazepriL 2023-0 Yes 10mg Take 1 Unive rs 10 mg 3-18 tablet by ity of tablet 12:44: mouth in [place] 03 the Medical morning. Branch rivaroxaban 2023-0 Yes 15mg Take 1 Univ ers (XARELTO) 3-18 tablet by ity o f 15 mg 12:44: mouth in [place] tablet 03 the Medical morning. Branch carvediloL 2023-0 Yes 3.125mg Take 1 Un igor 3.125 mg 3-18 tablet by ity of tablet 12:44: mouth in [place] 03 the Medical morning Branch and 1 tablet in the evening. Take with meals. busPIRone 2023-0 Yes 10mg Take 1 Univer s 10 mg 3-18 tablet by ity of tablet 12:44: mouth in [place] 03 the Medical morning Branch and 1 tablet in the evening. busPIRone 2023-0 Yes 30mg Take 1 Univer s 30 mg 3-18 tablet by ity of tablet 12:44: mouth in [place] 03 the Medical morning Branch and 1 tablet in the evening. KCL 20 mEq 2023-0 Yes Take by Univ ers tablet 3-18 mouth 2 ity of 12:44: (two) [place] [address] times Medical daily. Branch benazepriL 2023-0 Yes 10mg Take 1 Unive rs 10 mg 3-18 tablet by ity of tablet 12:44: mouth in [place] 03 the Medical morning. Branch rivaroxaban 2022-0 Yes 15mg Take 1 Univ ers (XARELTO) 3-18 tablet by ity o f 15 mg 12:44: mouth in [place] tablet 03 the Medical morning. Branch carvediloL 2022-0 Yes 3.125mg Take 1 [facility] ig[facility] 3.125 mg 3-18 tablet by ity of tablet 12:44: mouth in [place] 03 the Medical morning Branch and 1 tablet in the evening. Take with meals. busPIRone 2023-0 Yes 10mg Take 1 Univer s 10 mg 3-18 tablet by ity of tablet 12:44: mouth in [place] 03 the Medical morning Branch and 1 tablet in the evening. busPIRone 2023-0 Yes 30mg Take 1 Univer s 30 mg 3-18 tablet by ity of tablet 12:44: mouth in [place] 03 the Medical morning Branch and 1 tablet in the evening. KCL 20 mEq 2022-0 Yes Take by Univ ers tablet 3-18 mouth 2 ity of 12:44: (two) [place] 03 times Medical daily. Branch benazepriL 2022-0 Yes 10mg Take 1 [facility] 10 mg 3-18 tablet by ity of tablet 12:44: mouth in [place] 03 the Medical morning. Branch rivaroxaban 2022-0 Yes 15mg Take 1 Univ ers (XARELTO) 3-18 tablet by ity o f 15 mg 12:44: mouth in [place] tablet 03 the Medical morning. Branch albuterol 2022-0 Yes [id number] 2{puff} Inhale 2 [facility] 90 3-18 Puffs ity of mcg/actuati 00:00: every 6 [place] on inhaler 00 (six) Medical hours as Branch needed for Wheezing or Shortness of Breath. albuterol 2022-0 Yes [id number] 2{puff} Inhale 2 [facility] 90 3-18 Puffs ity of mcg/actuati 00:00: every 6 [place] on inhaler 00 (six) Medical hours as Branch needed for Wheezing or Shortness of Breath. albuterol 3-0 Yes [id number] 2{puff} Inhale 2 [facility] 90 3-18 Puffs ity of mcg/actuati 00:00: every 6 [place] on inhaler 00 (six) Medical hours as Branch needed for Wheezing or Shortness of Breath. albuterol Yes [id number] 2{puff} Inhale 2 [facility] 90 3-18 Puffs ity of mcg/actuati 00:00: every 6 [place] on inhaler 00 (six) Medical hours as Branch needed for Wheezing or Shortness of Breath. albuterol Yes [id number] 2{puff} Inhale 2 [facility] 90 3-18 Puffs ity of mcg/actuati 00:00: every 6 [place] on inhaler 00 (six) Medical hours as Branch needed for Wheezing or Shortness of Breath. albuterol Yes [id number] 2{puff} Inhale 2 [facility] 90 3-18 Puffs ity of mcg/actuati 00:00: every 6 [place] on inhaler 00 (six) Medical hours as Branch needed for Wheezing or Shortness of Breath. albuterol Yes [id number] 2{puff} Inhale 2 [facility] 90 3-18 Puffs ity of mcg/actuati 00:00: every 6 [place] on inhaler 00 (six) Medical hours as Branch needed for Wheezing or Shortness of Breath. albuterol Yes [id number] 2{puff} Inhale 2 [facility] 90 3-18 Puffs ity of mcg/actuati 00:00: every 6 [place] on inhaler 00 (six) Medical hours as Branch needed for Wheezing or Shortness of Breath. albuterol Yes [id number] 2{puff} Inhale 2 [facility] 90 3-18 Puffs ity of mcg/actuati 00:00: every 6 [place] on inhaler 00 (six) Medical hours as Branch needed for Wheezing or Shortness of Breath. albuterol Yes [id number] 2{puff} Inhale 2 [facility] 90 3-18 Puffs ity of mcg/actuati 00:00: every 6 [place] on inhaler 00 (six) Medical hours as Branch needed for Wheezing or Shortness of Breath. albuterol Yes [id number] 2{puff} Inhale 2 [facility] 90 3-18 Puffs ity of mcg/actuati 00:00: every 6 [place] on inhaler 00 (six) Medical hours as Branch needed for Wheezing or Shortness of Breath. albuterol Yes [id number] 2{puff} Inhale 2 [facility] 90 3-18 Puffs ity of mcg/actuati 00:00: every 6 [place] on inhaler 00 (six) Medical hours as Branch needed for Wheezing or Shortness of Breath. albuterol 2022- No [id number] 2{puff} Inhale 2 [facility] 90 3-18 05-03 Puffs ity of mcg/actuati 00:00: 00:00 every 6 [place] on inhaler 00 :00 (six) Medical hours as Branch needed for Wheezing or Shortness of Breath. tiotropium 2022- No [id number] 18ug Inhale 1 [facility] 18 mcg 3-18 04-18 capsule in ity of inhalation 00:00: 04:59 the [place] 00 :00 morning Medical for 30 Branch days. tiotropium 2022- No [id number] 18ug Inhale 1 [facility] 18 mcg 3-18 04-18 capsule in ity of inhalation 00:00: 04:59 the [place] 00 :00 morning Medical for 30 Branch days. tiotropium 2022- No [id number] 18ug Inhale 1 [facility] 18 mcg 3-18 04-18 capsule in ity of inhalation 00:00: 04:59 the [place] 00 :00 morning Medical for 30 Branch days. tiotropium 2022- No [id number] 18ug Inhale 1 [facility] 18 mcg 3-18 04-18 capsule in ity of inhalation 00:00: 04:59 the [place] 00 :00 morning Medical for 30 Branch days. tiotropium 2022- No [id number] 18ug Inhale 1 [facility] 18 mcg 3-18 04-18 capsule in ity of inhalation 00:00: 04:59 the [place] 00 :00 morning Medical for 30 Branch days. tiotropium 2022- No [id number] 18ug Inhale 1 [facility] 18 mcg 3-18 04-18 capsule in ity of inhalation 00:00: 04:59 the [place] 00 :00 morning Medical for 30 Branch days. tiotropium 2022- No [id number] 18ug Inhale 1 [facility] 18 mcg 3-18 04-18 capsule in ity of inhalation 00:00: 04:59 the [place] 00 :00 morning Medical for 30 Branch days. tiotropium 2022-2022- No [id number] 18ug Inhale 1 [facility] 18 mcg 3-18 04-18 capsule in ity of inhalation 00:00: 04:59 the [place] 00 :00 morning Medical for 30 Branch days. doxycycline 2022-0 2022- No [id number] 100mg Take 1 [facility] hyclate 100 3-18 03-24 capsule by i ty of mg capsule 00:00: 04:59 mouth [place] 00 :00 every 12 Medical ([facility]) Branch hours for 5 days. predniSONE 2022-0 2022- No [id number] 40mg Take 2 [facility] 20 mg 3-18 03-24 tablets by ity of tablet 00:00: 04:59 mouth in [place] 00 :00 the [facility] morning Branch for 5 days. doxycycline 2022-2022- No [id number] 100mg Take 1 [facility] hyclate 100 3-18 03-24 capsule by i ty of mg capsule 00:00: 04:59 mouth [place] 00 :00 every 12 Medical ([facility]) Branch hours for 5 days. predniSONE 2022-0 2022- No [id number] 40mg Take 2 Univers 20 mg 3-18 03-24 tablets by ity of tablet 00:00: 04:59 mouth in [place] 00 :00 the [facility] morning Branch for 5 days. rivaroxaban Yes 15mg 15 mg, Univ ers (XARELTO) 3-17 Oral, ity of tablet 15 17:15: DAILY, [place] mg 00 First dose Medical (after Branch last modificati on) on Tue12/03/22 at 1215, Until Discontinu ed, Routine enoxaparin 2022- No 40mg 40 mg, Univ ers (LOVENOX) 3-16 03-17 Subcutaneo ity of injection 22:00: 16:06 us, DAILY, [place] 40 mg 00 :59 First dose Medical on Tue12/02/22 at 1700, Until Discontinu ed, Routine methylPREDN Yes 40mg 40 mg, Univ ers ISolone sod 3-16 Intravenou it y of succ 19:00: s, Q8H, [place] (SOLU-MEDRO 00 First dose Me dical L (PF)) on [place] Branch injection 12/02/22 at 40 mg 1400, Until Discontinu ed, 1 mL codeine-gua 2022-0 Yes 5mL 5 mL, Unive rs ifenesin 12-02 Oral, ity of (ROBITUSSIN 16:25: Q6HPRN, [place] as AC) 10-100 07 Starting Medic al mg/5 mL on [place] Branch oral 12/02/22 at solution 5 1125, mL Until Discontinu ed, Routine, Cough levalbutero 2022-0 Yes 1.25mg 1.25 mg, Univers l (XOPENEX) 16 Inhalation it y of nebulizer 13:00: , Q4H, [place] solution 00 First dose Medic al 1.25 mg on [place] Branch 12/02/22 at 0800, Until Discontinu ed, Routine ipratropium 2022-0 Yes .5mg 0.5 mg, Uni vers (ATROVENT) 12-02 Inhalation ity of 0.02 % 13:00: , Q4H, [place] nebulizer 00 First dose Medi lucho solution on [place] Branch 0.5 mg 12/02/22 at 0800, Until Discontinu ed, Routine doxycycline 2022-0 2022- No 100mg 100 mg, U nivers hyclate [...] ion of therapy: 5 days NaCl 0.9% 2022-0 202- No 1000mL at 75 Univ ers (NS) IV 12-02 03-16 mL/hr, IV ity of infusion 11:45: 14:24 Infusion, [place] 1,000 mL 00 :54 CONTINUOUS Medic al , Starting Branch on [place] 12/02/22 at 0645, Until [place] 12/02/22 at 0924, Routine famotidine 2022-0 Yes 20mg 20 mg, [facility] rs (PEPCID AC) 3-16 Oral, ity of tablet 20 11:30: BIDPRN, [place] mg 03 Starting Medical on [place] Branch 12/02/22 at 0630, Until Discontinu ed, Routine, Indigestio n, Heartburn ondansetron 2022-0 Yes 4mg 4 mg, Slow Univers (ZOFRAN 16 IV Push, ity of (PF)) 11:30: Q6HPRN, [place] injection 4 03 Starting Medi lucho mg on [place] Branch 12/02/22 at 0630, Until Discontinu ed, Routine, Nausea and Vomiting (N/V) bisacodyL 2022-0 Yes 10mg 10 mg, Univer s (DULCOLAX) 16 Oral, ity of tablet 10 11:30: QDAILYPRN, [place] mg 03 Starting Medical on [place] Branch 12/02/22 at 0630, Until Discontinu ed, Routine, Constipati on acetaminoph 2022-0 Yes 650mg 650 mg, [facility] igor en 12-02 Oral, ity of (TYLENOL) 11:30: Q6HPRN, [place] tablet 650 03 Starting Medic al mg on [place] Branch 12/02/22 at 0630, Until Discontinu ed, Routine, Pain (scale 1-3) methylpredn 0 2022- No 125mg 125 mg, U nivers isolone sod 12-02 Intravenou i ty of succ 06:15: 05:27 s, ONCE, 1 [place] (SOLU-MEDRO 00 :00 dose, On Medi lucho L) [place] [facility] injection 12/02/22 at 125 mg 0115, 2 mL ipratropium 0 2022- No 6mL 6 mL, Univ ers -albuteroL 12-02 Inhalation it y of (DUONEB) 06:15: 05:33 , ONCE, 1 [place] as 0.5 mg-3 00 :00 dose, On Medical mg(2.5 mg [place] Branch base)/3 mL 12/02/22 at nebulizer 0115, solution 6 Routine mL levalbutero 2022-0 2022- No .63mg 0.63 mg, Univers l (XOPENEX) 12-01 Inhalation i ty of nebulizer 13:15: 12:38 , ONCE, 1 [place] solution 00 :00 dose, On Medical 0.63 mg Wed Branch 12/01/22 at 0815, Routine ipratropium 2022- No .5mg 0.5 mg, Un igor (ATROVENT) 12-01 Inhalation it y of 0.02 % 12:30: 12:38 , ONCE, 1 [place] nebulizer 00 :00 dose, On Medica l [...] 0.02 % 10:30: 10:38 , ONCE, 1 [place] nebulizer 00 :00 dose, On Medica l solution Wed Branch 0.5 mg 12/01/22 at 0530, MICHAEL methylPREDN No 40mg 40 mg, Uni vers ISolone sod 12-01 Intravenou i ty of succ 10:30: 10:35 s, ONCE, 1 [place] (SOLU-MEDRO 00 :00 dose, On Medi lucho L (PF)) Wed Branch injection 12/01/22 at 40 mg 0530, MICHAEL Nebulizer & 0 Yes [id number] Use as Univers Compressor 3-15 directed ity o f For Neb 00:00: Medical Branch albuterol 0 Yes [id number] 2{puff} Inhale 2 [facility] 90 3-15 Puffs ity of mcg/actuati 00:00: every 4 [place] on inhaler 00 (four) Medical hours as Branch needed for Wheezing or Shortness of Breath. Nebulizer & 0 Yes [id number] Use as Univers Compressor 3-15 directed ity o f For Neb 00:00: [place] Medical Branch albuterol 2023-0 Yes [id number] 2{puff} Inhale 2 [facility] 90 3-15 Puffs ity of mcg/actuati 00:00: every 4 [place] on inhaler 00 (four) Medical hours as Branch needed for Wheezing or Shortness of Breath. Nebulizer & 2022-0 Yes [id number] Use as Univers Compressor 3-15 directed ity o f For Neb 00:00: Medical Branch albuterol 2022-0 Yes [id number] 2{puff} Inhale 2 [facility] 90 3-15 Puffs ity of mcg/actuati 00:00: every 4 [place] on inhaler 00 (four) Medical hours as Branch needed for Wheezing or Shortness of Breath. Nebulizer & 0 Yes [id number] Use as Univers Compressor 3-15 directed ity o f For Neb 00:00: Medical Branch Nebulizer & 2022-0 Yes [id number] Use as Univers Compressor 3-15 directed ity o f For Neb 00:00: Medical Branch Nebulizer & 2022-0 Yes [id number] Use as Univers Compressor 3-15 directed ity o f For Neb 00:00: Medical Branch Nebulizer & 2022-0 Yes [id number] Use as Univers Compressor 3-15 directed ity o f For Neb 00:00: Medical Branch Nebulizer & 2022-0 Yes [id number] Use as Univers Compressor 3-15 directed ity o f For Neb 00:00: Medical Branch Nebulizer & 2022-0 Yes [id number] Use as Univers Compressor 3-15 directed ity o f For Neb 00:00: Medical Branch Nebulizer & 2022-0 Yes [id number] Use as Univers Compressor 3-15 directed ity o f For Neb 00:00: Medical Branch Nebulizer & 2022-0 Yes [id number] Use as Univers Compressor 3-15 directed ity o f For Neb 00:00: Medical Branch Nebulizer & 2022-0 Yes [id number] Use as Univers Compressor 3-15 directed ity o f For Neb 00:00: Medical Branch Nebulizer & 2022-0 Yes [id number] Use as Univers Compressor 3-15 directed ity o f For Neb 00:00: Medical Branch Nebulizer & 3-0 Yes [id number] Use as Univers Compressor 3-15 directed ity o f For Neb 00:00: Medical Branch Nebulizer & 2022-0 Yes [id number] Use as Univers Compressor 3-15 directed ity o f For Neb 00:00: Medical Branch Nebulizer & 3-0 Yes [id number] Use as Univers Compressor 3-15 directed ity o f For Neb 00:00: Medical Branch Nebulizer & 3-0 Yes [id number] Use as Univers Compressor 3-15 directed ity o f For Neb 00:00: Medical Branch Nebulizer & 2022-0 Yes [id number] Use as Univers Compressor 3-15 directed ity o f For Neb 00:00: Medical Branch Nebulizer & 2022-0 Yes [id number] Use as Univers Compressor 3-15 directed ity o f For Neb 00:00: Medical Branch Nebulizer & 2022-0 Yes [id number] Use as Univers Compressor 3-15 directed ity o f For Neb 00:00: Medical Branch Nebulizer & 2022-0 Yes [id number] Use as Univers Compressor 3-15 directed ity o f For Neb 00:00: Medical Branch Nebulizer & 2022-0 Yes [id number] Use as Univers Compressor 3-15 directed ity o f For Neb 00:00: Medical Branch Nebulizer & 2022-0 Yes [id number] Use as Univers Compressor 3-15 directed ity o f For Neb 00:00: Medical Branch Nebulizer & 2022-0 Yes [id number] Use as Univers Compressor 3-15 directed ity o f For Neb 00:00: Medical Branch Nebulizer & 2022-0 Yes [id number] Use as Univers Compressor 3-15 directed ity o f For Neb 00:00: Medical Branch Nebulizer & 2022-0 Yes [id number] Use as Univers Compressor 3-15 directed ity o f For Neb 00:00: Medical Branch Nebulizer & 2022-0 Yes [id number] Use as Univers Compressor 3-15 directed ity o f For Neb 00:00: Medical Branch Nebulizer & 2022-0 Yes [id number] Use as Univers Compressor 3-15 directed ity o f For Neb 00:00: Medical Branch Nebulizer & 2022-0 Yes [id number] Use as Univers Compressor 3-15 directed ity o f For Neb 00:00: Medical Branch Nebulizer & 2022-0 Yes [id number] Use as Univers Compressor 3-15 directed ity o f For Neb 00:00: Medical Branch Nebulizer & 2022-0 Yes [id number] Use as Univers Compressor 3-15 directed ity o f For Neb 00:00: Medical Branch Nebulizer & 2022-0 Yes [id number] Use as Univers Compressor 3-15 directed ity o f For Neb 00:00: Medical Branch Nebulizer & 2022-0 Yes [id number] Use as Univers Compressor 3-15 directed ity o f For Neb 00:00: Medical Branch Nebulizer & 2022-0 Yes [id number] Use as Univers Compressor 3-15 directed ity o f For Neb 00:00: Medical Branch Nebulizer & 2022-0 Yes [id number] Use as Univers Compressor 3-15 directed ity o f For Neb 00:00: Medical Branch Nebulizer & 2022-0 Yes [id number] Use as Univers Compressor 3-15 directed ity o f For Neb 00:00: Medical Branch Nebulizer & 2022-0 Yes [id number] Use as Univers Compressor 3-15 directed ity o f For Neb 00:00: Medical Branch Nebulizer & 2022-0 Yes [id number] Use as Univers Compressor 3-15 directed ity o f For Neb 00:00: Medical Branch albuterol 0 Yes [id number] 2{puff} Inhale 2 [facility] 90 3-15 Puffs ity of mcg/actuati 00:00: every 4 [place] on inhaler 00 (four) Medical hours as Branch needed for Wheezing or Shortness of Breath. predniSONE 2022-0 Yes [id number] 50mg Take 1 Univers 50 mg 3-15 tablet by ity of tablet 00:00: mouth in [place] 00 the Medical morning. Branch Nebulizer & Yes [id number] Use as Univers Compressor 3-15 directed ity o f For Neb 00:00: [place] [facility] 00 Medical Branch albuterol Yes [id number] 2{puff} Inhale 2 Univers 90 3-15 Puffs ity of mcg/actuati 00:00: every 4 [place] on inhaler 00 (four) Medical hours as Branch needed for Wheezing or Shortness of Breath. albuterol 2022- No [id number] 2{puff} Inhale 2 Univers 90 3-15 03-26 Puffs ity of mcg/actuati 00:00: 00:00 every 4 [place] on inhaler 00 :00 (four) Medical hours as Branch needed for Wheezing or Shortness of Breath. predniSONE 2022- No [id number] 50mg Take 1 Univers 50 mg 12-01 03-18 tablet by ity of tablet 00:00: 00:00 mouth in [place] 00 :00 the Medical morning. Branch omeprazole 2022- No 40mg Take 40 mg Univers 40 mg 11-28-12 by mouth ity of capsule 14:11: 00:00 daily. [place] : Medical Branch carvediloL 2022- No 25mg Take 25 mg Univers 25 mg 11-28-12 by mouth 2 ity of tablet 14:11: 00:00 (two) [place] 21 :00 times Medical daily with Branch meals. busPIRone 2022- No 30mg Take 30 mg U nivers 30 mg 11-28-12 by mouth 2 ity of tablet 14:11: 00:00 (two) [place] 21 :00 times Medical daily. Branch benazepriL 2022- No 10mg Take 10 mg Univers 10 mg 11-28-12 by mouth ity of tablet 14:11: 00:00 daily. [place] 21 :00 Medical Branch hydroCHLORO 2022- No 25mg Take 25 mg Univers thiazide 25 11-28-12 by mouth ity of mg tablet 14:11: 00:00 daily. [place] 21 :00 Medical Branch levalbutero Yes .63mg 0.63 mg, U nivers l (XOPENEX) 3-12 Inhalation it y of nebulizer 13:00: , TID, [place] solution 00 First dose Medic al 0.63 mg (after Branch last modificati on) on [place] 11/28/22 at 0800, Until Discontinu ed, Routine ipratropium 2023-0 Yes .5mg 0.5 mg, Uni vers (ATROVENT) 3-11 Inhalation ity of 0.02 % 20:00: , TID, [place] nebulizer 00 First dose Medi lucho solution (after Branch 0.5 mg last modificati on) on [facility] 11/27/22 at 1400, Until Discontinu ed, Routine nicotine 3-0 Yes 1{patch 1 Patch, Un igor (NICODERM) 3 } Topical, ity o f 21 mg/24 hr 17:30: Administer [place] patch 1 00 over 24 Medical Patch Hours, Branch Q24H, First dose on [facility] 11/27/22 at 1130, Until Discontinu ed, Routine busPIRone 2022-0 Yes 10mg 10 mg, Univer s (BUSPAR) 3-11 Oral, TID, ity o f tablet 10 16:15: First dose [place] mg 00 on [facility] Medical 11/27/22 at Branch 1015, Until Discontinu ed, Routine aspirin 2023-0 Yes 81mg 81 mg, Univers chewable 11-27 Oral, ity of tablet 81 16:15: DAILY, [place] mg 00 First dose Medical on [facility] 11/27/22 at 1015, Until Discontinu ed, Routine foLIC acid 2022-0 Yes 1mg 1 mg, Univer s (FOLATE) 3 Oral, ity of tablet 1 mg 15:00: DAILY, [place] 00 First dose Medical on [facility] Branch 11/27/22 at 0900, Until Discontinu ed, Routine rivaroxaban 2023-0 Yes 20mg 20 mg, Univ ers (XARELTO) 3-11 Oral, ity of tablet 20 15:00: DAILY, [place] mg 00 First dose Medical on [facility] Branch 11/27/22 at 0900, Until Discontinu ed, Routine omeprazole 2023-0 Yes 40mg 40 mg, Unive rs (PRILOSEC) 3-11 Oral, ity of capsule 40 15:00: DAILY, [place] mg 00 First dose Medical on [facility] 11/27/22 at 0900, Until Discontinu ed predniSONE 2022- No 40mg 40 mg, Univ ers (DELTASONE) 11-2716 Oral, ity of tablet 40 15:00: 13:59 DAILY, 5 [place] mg 00 :00 doses, Medical First dose Branch on [facility] 11/27/22 at 0900, Last dose on Tue12/01/22 at 0900, Routine carvediloL Yes 25mg 25 mg, Unive rs (COREG) 11-27 Oral, BID ity of tablet 25 14:00: MEALS, [place] mg 00 First dose Medical on [facility] 11/27/22 at 0800, Until Discontinu ed, Routine levalbutero 2022- No .31mg 0.31 mg, Univers l (XOPENEX) 11-2712 Inhalation i ty of nebulizer 14:00: 12:33 , TID, [place] solution 00 :58 First dose Medic al 0.31 mg on [facility] 11/27/22 at 0800, Until Discontinu ed, Routine ipratropium 2022- No .5mg 0.5 mg, Un igor (ATROVENT) 11-27 Inhalation it y of 0.02 % 14:00: 18:48 , QID, [place] nebulizer 00 :56 First dose Medi lucho solution on [facility] 0.5 mg 11/27/22 at 0800, Until Discontinu ed, Routine thiamine Yes 100mg 100 mg, Unive rs (VITAMIN 11-27 Oral, ity of B1) tablet 08:30: DAILY, [place] 100 mg 00 First dose Medical (after Branch last modificati on) on [facility] 11/27/22 at 0230, Until Discontinu ed, Routine LORazepam Yes 1mg 1 mg, Slow Un igor (ATIVAN) 11-27 IV Push, ity of injection 1 08:16: Q4HPRN, [place] mg 19 Starting Medical on [facility] 11/27/22 at 0216, Until Discontinu ed, Routine, Agitation, Seizures, withdrawl levalbutero 0 Yes 1.25mg 1.25 mg, Univers l (XOPENEX) 11-19 Inhalation it y of nebulizer 14:00: , TID, [place] solution 00 First dose Medic al 1.25 mg on Fri Branch 11/19/22 at 0800, Until Discontinu ed, Routine ipratropium 2022- No .5mg 0.5 mg, Un igor (ATROVENT) 11-19 Inhalation it y of 0.02 % 09:30: 08:47 , ONCE, 1 [place] nebulizer 00 :00 dose, On Medica l solution 11/19/22 Branc h 0.5 mg at 0330, Routine levalbutero 2022- No 1.25mg 1.25 mg, Univers l (XOPENEX) 11-19 Inhalation i ty of nebulizer 02:00: 01:21 , ONCE, 1 [place] solution 00 :00 dose, On Medical 1.25 mg [place] 11/18/22 Branch at 2000, Routine thiamine 3-0 2022- No [id number] 100mg Take 1 Univers 100 mg 2-24 -27 tablet by ity of tablet 00:00: 04:59 mouth in [place] 00 :00 [facility] for 30 days. thiamine 2022-0 3- No [id number] 100mg Take 1 Univers 100 mg 2-24 -27 tablet by ity of tablet 00:00: 04:59 mouth in [place] 00 :00 [facility] for 30 days. thiamine 202-0 2023- No [id number] 100mg Take 1 [facility] 100 mg 2-24 -27 tablet by ity of tablet 00:00: 04:59 mouth in [place] 00 :00 [facility] for 30 days. thiamine 2023-0 2023- No [id number] 100mg Take 1 [facility] 100 mg 2-24 -27 tablet by ity of tablet 00:00: 04:59 mouth in [place] 00 :00 [facility] for 30 days. thiamine 2023-0 2023- No [id number] 100mg Take 1 [facility] 100 mg 2-24 -27 tablet by ity of tablet 00:00: 04:59 mouth in [place] 00 :00 [facility] for 30 days. thiamine 2023-0 2023- No [id number] 100mg Take 1 Univers 100 mg 2-24 03-12 tablet by ity of tablet 00:00: 00:00 mouth in [place] 00 :00 the [facility] Branch for 30 days. thiamine 2023-0 Yes 100mg 100 mg, Unive rs (VITAMIN 2-23 Oral, ity of B1) tablet 15:00: DAILY, [place] 100 mg 00 First dose Medical on [facility] Branch 11/11/22 at 0900, Until Discontinu ed, Routine omeprazole 2023-0 Yes 40mg Take 40 mg U nivers 40 mg 2-23 by mouth ity of capsule 13:41: daily. [address] carvediloL 2023-0 Yes 25mg Take 25 mg U nivers 25 mg 2-23 by mouth 2 ity of tablet 13:41: (two) [place] [address] times Medical daily with Branch meals. busPIRone 2023-0 Yes 30mg Take 30 mg [facility] 30 mg 2-23 by mouth 2 ity of tablet 13:41: (two) [place] [address] times Medical daily. Branch benazepriL 2023-0 Yes 10mg Take 10 mg U nivers 10 mg 2-23 by mouth ity of tablet 13:41: daily. [address] hydroCHLORO 2023-0 Yes 25mg Take 25 mg Univers thiazide 25 2-23 by mouth ity of mg tablet 13:41: daily. [address] omeprazole 2023-0 Yes 40mg Take 40 mg U nivers 40 mg 2-23 by mouth ity of capsule 13:41: daily. [address] carvediloL 2023-0 Yes 25mg Take 25 mg U nivers 25 mg 2-23 by mouth 2 ity of tablet 13:41: (two) [place] [address] times Medical daily with Branch meals. busPIRone 2023-0 Yes 30mg Take 30 mg [facility] 30 mg 2-23 by mouth 2 ity of tablet 13:41: (two) [place] [address] times Medical daily. Branch benazepriL 2023-0 Yes 10mg Take 10 mg U nivers 10 mg 2-23 by mouth ity of tablet 13:41: daily. [address] hydroCHLORO 2023-0 Yes 25mg Take 25 mg Univers thiazide 25 2-23 by mouth ity of mg tablet 13:41: daily. [address] omeprazole 2023-0 Yes 40mg Take 40 mg U nivers 40 mg 2-23 by mouth ity of capsule 13:41: daily. [address] carvediloL 2023-0 Yes 25mg Take 25 mg U nivers 25 mg 2-23 by mouth 2 ity of tablet 13:41: (two) [place] [address] times Medical daily with Branch meals. busPIRone 2023-0 Yes 30mg Take 30 mg [facility] 30 mg 2-23 by mouth 2 ity of tablet 13:41: (two) [place] [address] times Medical daily. Branch benazepriL 2023-0 Yes 10mg Take 10 mg U nivers 10 mg 2-23 by mouth ity of tablet 13:41: daily. [address] hydroCHLORO 2023-0 Yes 25mg Take 25 mg Univers thiazide 25 2-23 by mouth ity of mg tablet 13:41: daily. [address] omeprazole 2023-0 Yes 40mg Take 40 mg U nivers 40 mg 2-23 by mouth ity of capsule 13:41: daily. [address] carvediloL 2023-0 Yes 25mg Take 25 mg U nivers 25 mg 2-23 by mouth 2 ity of tablet 13:41: (two) [place] [address] times Medical daily with Branch meals. busPIRone 2023-0 Yes 30mg Take 30 mg [facility] 30 mg 2-23 by mouth 2 ity of tablet 13:41: (two) [place] [address] times Medical daily. Branch benazepriL 2023-0 Yes 10mg Take 10 mg U nivers 10 mg 2-23 by mouth ity of tablet 13:41: daily. [address] hydroCHLORO 2023-0 Yes 25mg Take 25 mg Univers thiazide 25 2-23 by mouth ity of mg tablet 13:41: daily. [address] omeprazole 2023-0 Yes 40mg Take 40 mg U nivers 40 mg 2-23 by mouth ity of capsule 13:41: daily. [address] carvediloL 2023-0 Yes 25mg Take 25 mg U nivers 25 mg 2-23 by mouth 2 ity of tablet 13:41: (two) [place] [address] times Medical daily with Branch meals. busPIRone 2023-0 Yes 30mg Take 30 mg [facility] 30 mg 2-23 by mouth 2 ity of tablet 13:41: (two) [place] [address] times Medical daily. Branch benazepriL 2023-0 Yes 10mg Take 10 mg U nivers 10 mg 2-23 by mouth ity of tablet 13:41: daily. [address] Branch hydroCHLORO 0 Yes 25mg Take 25 mg Univers thiazide 25 2-23 by mouth ity of mg tablet 13:41: daily. [address] foLIC acid 0 2022- No 1mg 1 mg, Unive rs (FOLATE) 2-11 11- Oral, ity of tablet 1 mg 00:15: 00:26 ONCE, 1 [place] 00 :00 dose, On Medical Wed Branch 11/10/22 at 1815, Routine benzocaine- 0 Yes [id number] 1{lozen Take 1 Univers menthoL 2-23 ge} Lozenge by ity of lozenge 00:00: mouth [place] [id number] every 4 Medical (four) Branch hours as needed for Sore throat. budesonide- Yes [id number] 2{puff} Inhale 2 Univers formoteroL 2-23 Puffs in ity o f 80-4.5 00:00: the [facility]/actuati morning Medic al on inhaler and 2 Branch Puffs in the evening. benzocaine- Yes [id number] 1{lozen Take 1 Univers menthoL 2-23 ge} Lozenge by ity of lozenge 00:00: mouth [place] 00 every 4 Medical (four) Branch hours as needed for Sore throat. budesonide- Yes [id number] 2{puff} Inhale 2 Univers formoteroL 2-23 Puffs in ity o f 80-4.5 00:00: the [facility]/actuati morning Medic al on inhaler and 2 Branch Puffs in the evening. benzocaine- Yes [id number] 1{lozen Take 1 Univers menthoL 2-23 ge} Lozenge by ity of lozenge 00:00: mouth [place] every 4 Medical (four) Branch hours as needed for Sore throat. budesonide- Yes [id number] 2{puff} Inhale 2 Univers formoteroL 2-23 Puffs in ity o f 80-4.5 00:00: the [place] mcg/actuati morning Medic al on inhaler and 2 Branch Puffs in the evening. benzocaine- 2022-0 Yes [id number] 1{lozen Take 1 Univers menthoL 2-23 ge} Lozenge by ity of lozenge 00:00: mouth [place] 00 every 4 Medical (four) Branch hours as needed for Sore throat. budesonide- 2022-0 Yes [id number] 2{puff} Inhale 2 Univers formoteroL 2-23 Puffs in ity o f 80-4.5 00:00: the [place] mcg/actuati 00 morning Medic al on inhaler and 2 Branch Puffs in the evening. benzocaine- 2022-0 Yes [id number] 1{lozen Take 1 Univers menthoL 2-23 ge} Lozenge by ity of lozenge 00:00: mouth [place] 00 every 4 Medical (four) Branch hours as needed for Sore throat. budesonide- 2022-0 Yes [id number] 2{puff} Inhale 2 Univers formoteroL 2-23 Puffs in ity o f 80-4.5 00:00: the [place] mcg/actuati 00 morning Medic al on inhaler and 2 Branch Puffs in the evening. benzocaine- 0 2022- No [id number] 1{lozen Take 1 Univers menthoL 2-23 03-12 ge} Lozenge by ity o f lozenge 00:00: 00:00 mouth [place] 00 :00 every 4 Medical (four) Branch hours as needed for Sore throat. budesonide- 0 2022- No [id number] 2{puff} Inhale 2 Univers formoteroL 2-23 03-12 Puffs in ity of 80-4.5 00:00: 00:00 the [place] mcg/actuati 00 :00 morning Medic al on inhaler and 2 Branch Puffs in the evening. sodium 2022-2022- No [id number] 1g Take 1 Uni vers chloride 1 2-23 03-06 tablet by ity of gram tablet 00:00: 05:59 mouth in [place] 00 :00 the Medical morning Branch and 1 tablet at noon and 1 tablet in the evening. Take with meals. Do all this for 10 days. sodium 2022-0 2022- No [id number] 1g Take 1 Uni vers chloride 1 2-23 03-06 tablet by ity of gram tablet 00:00: 05:59 mouth in [place] 00 :00 the [facility] and 1 tablet at noon and 1 tablet in the evening. Take with meals. Do all this for 10 days. sodium 2023-0 3- No [id number] 1g Take 1 Uni vers chloride 1 11-11- tablet by ity of gram tablet 00:00: 05:59 mouth in [place] 00 :00 the [facility] and 1 tablet at noon and 1 tablet in the evening. Take with meals. Do all this for 10 days. sodium 2023-0 2023- No [id number] 1g Take 1 Uni vers chloride 1 11-11- tablet by ity of gram tablet 00:00: 05:59 mouth in [place] 00 :00 the [facility] and 1 tablet at noon and 1 tablet in the evening. Take with meals. Do all this for 10 days. levoFLOXaci 2023-0 2023- No [id number] 750mg Take 1 Univers n 750 mg 11-11 tablet by ity o f tablet 00:00: 05:59 mouth [place] 00 :00 every 24 Medical ([facility]) hours for 5 days. levoFLOXaci 2023-0 3- No [id number] 750mg Take 1 Univers n 750 mg 11-11 tablet by ity o f tablet 00:00: 05:59 mouth [place] 00 :00 every 24 Medical ([facility] ur) hours for 5 days. predniSONE 2023-0 2023- No [id number] 40mg Take 2 Univers 20 mg 11-11- tablets by ity of tablet 00:00: 05:59 mouth in [place] 00 :00 [facility] for 3 days. predniSONE 2023-0 2023- No [id number] 40mg Take 2 Univers 20 mg 2-11 11-27 tablets by ity of tablet 00:00: 05:59 mouth in [place] 00 :00 [facility] for 3 days. sodium 3-0 Yes 1g 1 g, Oral, Unive rs chloride 2- TID MEALS, ity o f tablet 1 g 23:15: First dose [place] 00 on Tue11/10/22 at [place] 1715, Until Discontinu ed, Routine benzocaine- 2022-0 Yes 1{lozen 1 Lozenge, Univers menthoL 2-22 ge} Oral, ity of (CEPACOL 20:49: Q4HPRN, [place] SORE THROAT 25 Starting Medi lucho (JACINTO-MEN)) [...] at 0900, Until Discontinu ed, Routine methylPREDN 0 202- No 40mg 40 mg, Uni vers ISolone sod 11-1026 Intravenou i ty of succ 15:00: 14:59 s, DAILY, [place] (SOLU-MEDRO 00 :00 4 doses, Medi lucho [...] at 0300, Until Discontinu ed, Routine levoFLOXaci 2022-0 2022- No 750mg 750 mg, IV Univers [...] Yes 30mg 30 mg, Univer s (BUSPAR) - Oral, BID, ity o f tablet 30 02:00: First dose [place] mg 00 on [facility] 11/09/22 at Branch 1999, Until Discontinu ed, Routine carvediloL 2022-0 Yes 25mg 25 mg, Unive rs (COREG) - Oral, BID ity of tablet 25 23:00: MEALS, [place] mg 00 First dose Medical on [facility] 11/09/22 at 1700, Until Discontinu ed, Routine ipratropium 2022-0 Yes .5mg 0.5 mg, Uni vers (ATROVENT) 2-21 Inhalation ity of 0.02 % 22:00: , Q4H, [place] nebulizer 00 First dose Medi lucho solution on [facility] 0.5 mg 11/09/22 at 1600, Until Discontinu ed, Routine albuterol 2022-0 Yes 2.5mg 2.5 mg, Univ ers (PROVENTIL) 2-21 Inhalation it y of 2.5 mg /3 22:00: , Q4H, [place] mL (0.083 00 First dose Medi lucho %) on [facility] nebulizer 11/09/22 at solution 1600, 2.5 mg Until Discontinu ed, Routine NaCl 0.9% 0 2022- No 500mL at 999 Univ ers (NS) bolus 11-09 02-21 mL/hr, 500 it y of infusion 20:15: 21:30 mL, IV [place] 500 mL 00 :21 Infusion, Medical ONCE, 1 Branch dose, On Tue11/09/22 at 1415, STAT ondansetron 2022-0 Yes 4mg 4 mg, Slow Univers (ZOFRAN 11-09 IV Push, ity of (PF)) 20:04: Q6HPRN, [place] injection 4 17 Starting Medi lucho mg on Branch 11/09/22 at 1404, Until Discontinu ed, Routine, Nausea and Vomiting (N/V) acetaminoph 2022-0 Yes 650mg 650 mg, Un igor en 11-09 Oral, ity of (TYLENOL) 20:04: Q6HPRN, [place] tablet 650 07 Starting Medic al mg on [facility] Branch 11/09/22 at 1404, Until Discontinu ed, Routine, Pain (scale 1-3), Temp > 38 C albuterol 2022-0 2023- No 5mg 5 mg, Univer s (PROVENTIL) 11-09 Inhalation i ty of 2.5 mg /3 14:00: 14:05 , ONCE, 1 [place] mL (0.083 00 :00 dose, On Medica l %) [facility] nebulizer 11/09/22 at solution 5 0800, STAT mg albuterol 2022-0 2022- No 10mg 10 mg, Unive rs (PROVENTIL) 11-09 Inhalation i ty of 2.5 mg /3 11:00: 11:04 , ONCE, 1 [place] mL (0.083 00 :00 dose, On Medica l %) [facility] nebulizer 11/09/22 at solution 10 0500, STAT mg ipratropium 2022-0 2022- No .5mg 0.5 mg, Un igor (ATROVENT) 11-09 Inhalation it y of 0.02 % 09:00: 08:59 , ONCE, 1 [place] nebulizer 00 :00 dose, On Medica l solution [facility] Branch 0.5 mg 11/09/22 at 0300, MICHAEL albuterol 3-0 3- No 2.5mg 2.5 mg, Uni vers (PROVENTIL) 11-09 Inhalation i ty of 2.5 mg /3 09:00: 08:59 , ONCE, 1 [place] mL (0.083 00 :00 dose, On Medica l %) Tue Branch nebulizer 11/09/22 at solution 0300, STAT 2.5 mg magnesium 2022- No 2g 2 g, IV Univ ers sulfate in 11-09 Piggyback, it y of water 2 08:30: [...] 00 :00 dose, On Medica l %) Tue Branch nebulizer 11/09/22 at solution 0145, STAT 2.5 mg cephALEXin 2020-0 Yes [id number] 500mg Take 1 Univers (KEFLEX) 05-22 capsule by ity o f 500 mg 00:00: mouth 4 [place] capsule 00 (four) Medical times Branch daily. cephALEXin 2020-0 Yes [id number] 500mg Take 1 Univers (KEFLEX) 05-22 capsule by ity o f 500 mg 00:00: mouth 4 [place] capsule 00 (four) Medical times Branch daily. cephALEXin 2020-0 2022- No [id number] 500mg Take 1 Univers (KEFLEX) 9-03 02-23 capsule by ity of 500 mg 00:00: 00:00 mouth 4 [place] capsule 00 :00 (four) Medical times Branch daily. cefTRIAXone 2020-0 202- No 1000mg 1,000 mg, Univers (ROCEPHIN) 12-12-26 IV ity of 1,000 mg in 19:00: 18:23 Piggyback, [place] NaCl 0.9% 00 :00 ONCE, 1 Medical (NS) 50 mL dose, Fri Bran ch MINI-BAG 12/12/20 at 1400, 50 mL
Reas on for Anti-Infec tive: Empiric Therapy for Suspected Infection< br>Empiric Therapy Site: Urine
D uration of therapy: 72 hours carvediloL 2020-0 Yes 25mg Take 25 mg U nivers 25 mg 3-26 by mouth 2 ity of tablet 18:38: (two) [address] daily with Branch meals. busPIRone 2020-0 Yes 30mg Take 30 mg Un igor 30 mg 3-26 by mouth 2 ity of tablet 18:38: (two) [address] daily. Branch benazepriL 2020-0 Yes 10mg Take 10 mg U nivers 10 mg 3-26 by mouth ity of tablet 18:38: daily. [address] hydroCHLORO 2020-0 Yes 25mg Take 25 mg Univers thiazide 25 3-26 by mouth ity of mg tablet 18:38: daily. [address] carvediloL 2020-0 Yes 25mg Take 25 mg U nivers 25 mg 3-26 by mouth 2 ity of tablet 18:38: (two) [address] daily with Branch meals. busPIRone 2020-0 Yes 30mg Take 30 mg Un igor 30 mg 3-26 by mouth 2 ity of tablet 18:38: (two) [address] daily. Branch benazepriL 2020-0 Yes 10mg Take 10 mg U nivers 10 mg 3-26 by mouth ity of tablet 18:38: daily. [address] hydroCHLORO 2020-0 Yes 25mg Take 25 mg Univers thiazide 25 3-26 by mouth ity of mg tablet 18:38: daily. [address] carvediloL 2020-0 Yes 25mg Take 25 mg U nivers 25 mg 3-26 by mouth 2 ity of tablet 18:38: (two) [place] [address] times Medical daily with Branch meals. busPIRone 2021-0 Yes 30mg Take 30 mg Un igor 30 mg 3-26 by mouth 2 ity of tablet 18:38: (two) [place] 04 times Medical daily. Branch benazepriL 2021-0 Yes 10mg Take 10 mg U nivers 10 mg 3-26 by mouth ity of tablet 18:38: daily. [address] hydroCHLORO 2021-0 Yes 25mg Take 25 mg Univers thiazide 25 3-26 by mouth ity of mg tablet 18:38: daily. [address] carvediloL 2021-0 Yes 25mg Take 25 mg U nivers 25 mg 3-26 by mouth 2 ity of tablet 18:38: (two) [place] [address] times Medical daily with Branch meals. busPIRone 2021-0 Yes 30mg Take 30 mg Un igor 30 mg 3-26 by mouth 2 ity of tablet 18:38: (two) [place] [address] times Medical daily. Branch benazepriL 2021-0 Yes 10mg Take 10 mg U nivers 10 mg 3-26 by mouth ity of tablet 18:38: daily. [address] hydroCHLORO 2021-0 Yes 25mg Take 25 mg Univers thiazide 25 3-26 by mouth ity of mg tablet 18:38: daily. [address] carvediloL 2021-0 Yes 25mg Take 25 mg U nivers 25 mg 3-26 by mouth 2 ity of tablet 18:38: (two) [place] [address] times Medical daily with Branch meals. busPIRone 2021-0 Yes 30mg Take 30 mg Un igor 30 mg 3-26 by mouth 2 ity of tablet 18:38: (two) [place] 04 times Medical daily. Branch benazepriL 2021-0 Yes 10mg Take 10 mg U nivers 10 mg 3-26 by mouth ity of tablet 18:38: daily. [address] hydroCHLORO 2021-0 Yes 25mg Take 25 mg Univers thiazide 25 3-26 by mouth ity of mg tablet 18:38: daily. [address] carvediloL 2021-0 Yes 25mg Take 25 mg U nivers 25 mg 3-26 by mouth 2 ity of tablet 18:38: (two) [place] [address] times Medical daily with Branch meals. busPIRone 2021-0 Yes 30mg Take 30 mg Un igor 30 mg 3-26 by mouth 2 ity of tablet 18:38: (two) [place] [address] times Medical daily. Branch benazepriL 2021-0 Yes 10mg Take 10 mg U nivers 10 mg 3-26 by mouth ity of tablet 18:38: daily. [address] hydroCHLORO 2021-0 Yes 25mg Take 25 mg Univers thiazide 25 3-26 by mouth ity of mg tablet 18:38: daily. [address] carvediloL 2021-0 Yes 25mg Take 25 mg U nivers 25 mg 3-26 by mouth 2 ity of tablet 18:38: (two) [place] [address] times Medical daily with Branch meals. busPIRone 2021-0 Yes 30mg Take 30 mg Un igor 30 mg 3-26 by mouth 2 ity of tablet 18:38: (two) [place] [address] times Medical daily. Branch benazepriL 2021-0 Yes 10mg Take 10 mg U nivers 10 mg 3-26 by mouth ity of tablet 18:38: daily. [address] hydroCHLORO 2021-0 Yes 25mg Take 25 mg Univers thiazide 25 3-26 by mouth ity of mg tablet 18:38: daily. [address] carvediloL 2021-0 Yes 25mg Take 25 mg U nivers 25 mg 3-26 by mouth 2 ity of tablet 18:38: (two) [place] [address] times Medical daily with Branch meals. busPIRone 2021-0 Yes 30mg Take 30 mg Un igor 30 mg 3-26 by mouth 2 ity of tablet 18:38: (two) [place] [address] times Medical daily. Branch benazepriL 2021-0 Yes 10mg Take 10 mg U nivers 10 mg 3-26 by mouth ity of tablet 18:38: daily. [address] hydroCHLORO 2021-0 Yes 25mg Take 25 mg Univers thiazide 25 3-26 by mouth ity of mg tablet 18:38: daily. [address] carvediloL 2021-0 Yes 25mg Take 25 mg U nivers 25 mg 3-26 by mouth 2 ity of tablet 18:38: (two) [place] [address] times Medical daily with Branch meals. busPIRone 2021-0 Yes 30mg Take 30 mg Un igor 30 mg 3-26 by mouth 2 ity of tablet 18:38: (two) [place] 04 times Medical daily. Branch benazepriL 1-0 Yes 10mg Take 10 mg U nivers 10 mg 3-26 by mouth ity of tablet 18:38: daily. [address] hydroCHLORO 2020-0 Yes 25mg Take 25 mg Univers thiazide 25 3-26 by mouth ity of mg tablet 18:38: daily. [address] carvediloL 2020-0 Yes 25mg Take 25 mg U nivers 25 mg 3-26 by mouth 2 ity of tablet 18:38: (two) [place] times Medical daily with Branch meals. busPIRone 1-0 Yes 30mg Take 30 mg Un igor 30 mg 3-26 by mouth 2 ity of tablet 18:38: (two) [place] [address] times Medical daily. Branch benazepriL 2020-0 Yes 10mg Take 10 mg U nivers 10 mg 3-26 by mouth ity of tablet 18:38: daily. [address] hydroCHLORO 2020-0 Yes 25mg Take 25 mg Univers thiazide 25 3-26 by mouth ity of mg tablet 18:38: daily. [address] carvediloL 2020-0 Yes 25mg Take 25 mg U nivers 25 mg 3-26 by mouth 2 ity of tablet 18:38: (two) [place] [address] times Medical daily with Branch meals. busPIRone 1-0 Yes 30mg Take 30 mg Un igor 30 mg 3-26 by mouth 2 ity of tablet 18:38: (two) [place] [address] times Medical daily. Branch benazepriL 1-0 Yes 10mg Take 10 mg U nivers 10 mg 3-26 by mouth ity of tablet 18:38: daily. [address] hydroCHLORO 1-0 Yes 25mg Take 25 mg Univers thiazide 25 3-26 by mouth ity of mg tablet 18:38: daily. [address] carvediloL 2021-0 Yes 25mg Take 25 mg U nivers 25 mg 3-26 by mouth 2 ity of tablet 18:38: (two) [place] [address] times Medical daily with Branch meals. busPIRone 2021-0 Yes 30mg Take 30 mg Un igor 30 mg 3-26 by mouth 2 ity of tablet 18:38: (two) [place] 04 times Medical daily. Branch benazepriL 2021-0 Yes 10mg Take 10 mg U nivers 10 mg 3-26 by mouth ity of tablet 18:38: daily. [address] hydroCHLORO 2021-0 Yes 25mg Take 25 mg Univers thiazide 25 3-26 by mouth ity of mg tablet 18:38: daily. [address] carvediloL 2021-0 Yes 25mg Take 25 [...] by mouth ity of tablet 18:38: daily. [address] hydroCHLORO 2021-0 Yes 25mg Take 25 mg Univers thiazide 25 3-26 by mouth ity of mg tablet 18:38: daily. [address] carvediloL 2021-0 Yes 25mg Take 25 mg U nivers 25 mg 3-26 by mouth 2 ity of tablet 18:38: (two) [place] [address] times Medical daily with Branch meals. busPIRone 2021-0 Yes 30mg Take 30 mg Un igor 30 mg 3-26 by mouth 2 ity of tablet 18:38: (two) [place] 04 times Medical daily. Branch benazepriL 2021-0 Yes 10mg Take 10 mg U nivers 10 mg 3-26 by mouth ity of tablet 18:38: daily. [address] hydroCHLORO 2021-0 Yes 25mg Take 25 mg Univers thiazide 25 3-26 by mouth ity of mg tablet 18:38: daily. [address] carvediloL 2021-0 Yes 25mg Take 25 mg U nivers 25 mg 3-26 by mouth 2 ity of tablet 18:38: (two) [place] [address] times Medical daily with Branch meals. busPIRone 2021-0 Yes 30mg Take 30 mg Un igor 30 mg 3-26 by mouth 2 ity of tablet 18:38: (two) [place] 04 times Medical daily. [place] benazepriL Yes 10mg Take 10 mg U nivers 10 mg - by mouth ity of tablet 18:38: daily. [address] Branch hydroCHLORO Yes 25mg Take 25 mg Univers thiazide 25 -26 by mouth ity of mg tablet 18:38: daily. [address] Branch iohexol 2020- No [id number] 120mL 120 mL, Univers (OMNIPAQUE 12-12 Intravenou it y of 350 17:30: 17:21 s, ONCE, 1 [place] BULK-150 00 :00 dose, Fri Medica l mL) 12/12/20 at Branch injection 1230, 120 mL Routine aspirin 81 2020- No 81mg Take 81 mg Univers mg EC 12-12 by mouth ity of tablet 16:57: 00:00 daily. [place] 40 :00 [facility] Branch varenicline 2020- No 1mg Take 1 mg Univers (CHANTIX) 1 12-12 by mouth 2 i ty of mg tablet 16:57: 00:00 (two) [place] 18 :00 times Medical daily. Branch predniSONE 2020- No 20mg Take 20 mg Univers 20 mg 12-12 by mouth ity of tablet 16:57: 00:00 daily. [place] 12 :00 Medical Branch fluticasone 2020- No 1{puff} Inhale 1 Univers -umeclidin- 12-12 Puff ity of vilanter 16:56: 00:00 daily. [place] (TRELEGY 46 :00 Medical ELLIPTA) Branch 100-62.5-25 mcg DsDv cefpodoxime Yes [id number] 100mg Take 1 Univers 100 mg -26 tablet by ity of tablet 00:00: mouth 2 [place] 00 (two) Medical times [place] daily. cefpodoxime 0 Yes [id number] 100mg Take 1 Univers 100 mg 3-26 tablet by ity of tablet 00:00: mouth 2 [place] 00 (two) Medical times [place] daily. cefpodoxime 0 Yes [id number] 100mg Take 1 Univers 100 mg -26 tablet by ity of tablet 00:00: mouth 2 [place] 00 (two) Medical times Branch daily. cefpodoxime 2021-0 Yes [id number] 100mg Take 1 Univers 100 mg 3-26 tablet by ity of tablet 00:00: mouth [place] (two) Medical times Branch daily. cefpodoxime 2021-0 Yes [id number] 100mg Take 1 Univers 100 mg 3-26 tablet by ity of tablet 00:00: mouth [place] (two) Medical times Branch daily. cefpodoxime 2021-0 Yes [id number] 100mg Take 1 Univers 100 mg 3-26 tablet by ity of tablet 00:00: mouth [place] (two) Medical times Branch daily. cefpodoxime 2021-0 Yes [id number] 100mg Take 1 Univers 100 mg 3-26 tablet by ity of tablet 00:00: mouth [place] ([facility]) Medical times Branch daily. cefpodoxime 2021-0 Yes [id number] 100mg Take 1 Univers 100 mg 3-26 tablet by ity of tablet 00:00: mouth [place] ([facility]) Medical times Branch daily. cefpodoxime 2021-0 Yes [id number] 100mg Take 1 Univers 100 mg 3-26 tablet by ity of tablet 00:00: mouth [place] (two) Medical times Branch daily. cefpodoxime 2021-0 Yes [id number] 100mg Take 1 Univers 100 mg 3-26 tablet by ity of tablet 00:00: mouth [place] (two) Medical times Branch daily. cefpodoxime 2021-0 Yes [id number] 100mg Take 1 Univers 100 mg 3-26 tablet by ity of tablet 00:00: mouth [place] ([facility]) Medical times Branch daily. cefpodoxime 2021-0 Yes [id number] 100mg Take 1 Univers 100 mg 3-26 tablet by ity of tablet 00:00: mouth [place] (two) Medical times Branch daily. cefpodoxime 2021-0 Yes [id number] 100mg Take 1 Univers 100 mg 3-26 tablet by ity of tablet 00:00: mouth [place] ([facility]) Medical times Branch daily. cefpodoxime 2021-0 Yes [id number] 100mg Take 1 Univers 100 mg 3-26 tablet by ity of tablet 00:00: mouth [place] (two) Medical times Branch daily. cefpodoxime 2021-0 Yes [id number] 100mg Take 1 Univers 100 mg - tablet by ity of tablet 00:00: mouth 2 [place] 00 (two) Medical times Branch daily. cefpodoxime 2022- No [id number] 100mg Take 1 Univers 100 mg 3-14 11- tablet by ity of tablet 00:00: 00:00 mouth 2 [place] 00 :00 (two) Medical times Branch daily. cefpodoxime 0 2020- No [id number] 100mg Take 1 Univers 100 mg 3-12 12- tablet by ity of tablet 00:00: 00:00 mouth 2 [place] 00 :00 (two) Medical times Branch daily for 7 days. XARELTO 15 2020-0 Yes Univers mg tablet -28 ity of 00:00: [place] Medical Branch XARELTO 15 2020-0 Yes Univers mg tablet -28 ity of 00:00: [place] Medical Branch XARELTO 15 2020-0 Yes Univers mg tablet -28 ity of 00:00: [place] Medical Branch XARELTO 15 2020-0 Yes Univers mg tablet - ity of 00:00: [place] Medical Branch XARELTO 15 2020-0 Yes Univers mg tablet -28 ity of 00:00: [place] Medical Branch XARELTO 15 2020-0 Yes Univers mg tablet - ity of 00:00: [place] Medical Branch XARELTO 15 2020-0 Yes Univers mg tablet -28 ity of 00:00: [place] Medical Branch XARELTO 15 2020-0 Yes Univers mg tablet -28 ity of 00:00: [place] Medical Branch XARELTO 15 2020-0 Yes Univers mg tablet -28 ity of 00:00: [place] Medical Branch XARELTO 15 2020-0 Yes Univers mg tablet -28 ity of 00:00: [place] Medical Branch XARELTO 15 2020-0 Yes Univers mg tablet -28 ity of 00:00: [place] Medical Branch XARELTO 15 2020-0 Yes Univers mg tablet -28 ity of 00:00: [place] [address] Medical Branch XARELTO 15 2020-0 Yes Univers mg tablet -28 ity of 00:00: [place] Medical Branch XARELTO 15 2020-0 Yes Univers mg tablet 1-28 ity of 00:00: [place] 00 Medical Branch XARELTO 15 2020-0 Yes Univers mg tablet 10-16 ity of 00:00: [place] 00 Medical Branch XARELTO 15 2020-0 Yes Univers mg tablet 10-16 ity of 00:00: [place] 00 Medical Branch XARELTO 15 2020-0 Yes Univers mg tablet 10-16 ity of 00:00: [place] [address] Medical Branch XARELTO 15 2020-0 Yes Univers mg tablet 10-16 ity of 00:00: [place] 00 Medical Branch XARELTO 15 2020-0 Yes Univers mg tablet 10-16 ity of 00:00: [place] [address] Medical Branch XARELTO 15 2020-0 Yes Univers mg tablet 10-16 ity of 00:00: [place] [address] Medical Branch XARELTO 15 2020-0 Yes Univers mg tablet 10-16 ity of 00:00: [place] [address] Medical Branch XARELTO 15 2020-0 Yes Univers mg tablet 10-16 ity of 00:00: [place] [address] Medical Branch XARELTO 15 2020-0 Yes Univers mg tablet 10-16 ity of 00:00: [place] [address] Medical Branch XARELTO 15 2020-0 3- No Univer s mg tablet 10-1612 ity of 00:00: 00:00 [place] 00 :00 [facility] Branch omeprazole 2018- Yes 40mg Take 40 mg U nivers 40 mg 2-10 by mouth ity of capsule 00:11: daily. [address] omeprazole 2018- Yes 40mg Take 40 mg U nivers 40 mg 2-10 by mouth ity of capsule 00:11: daily. [address] varenicline 2018- Yes 1mg Take 1 mg U nivers (CHANTIX) 1 2-10 by mouth 2 it y of mg tablet 00:11: (two) [place] [id number] times Medical daily. Branch predniSONE 2018- Yes 20mg Take 20 mg U nivers 20 mg 2-10 by mouth ity of tablet 00:11: daily. [address] omeprazole 2018- Yes 40mg Take 40 mg U nivers 40 mg 2-10 by mouth ity of capsule 00:11: daily. [address] fluticasone 2018- Yes 1{puff} Inhale 1 Univers -umeclidin- 2-10 Puff ity of vilanter 00:11: daily. [address]) Branch 100-62.5-25 mcg DsDv aspirin 81 2018-09 Yes 81mg Take 81 mg U nivers mg EC 2-10 by mouth ity of tablet 00:11: daily. [address] varenicline 2018-09 Yes 1mg Take 1 mg U nivers (CHANTIX) 1 2-10 by mouth 2 it y of mg tablet 00:11: (two) [address] daily. Branch predniSONE 2018-09 Yes 20mg Take 20 mg U nivers 20 mg 2-10 by mouth ity of tablet 00:11: daily. [address] omeprazole 2018-09 Yes 40mg Take 40 mg U nivers 40 mg 2-10 by mouth ity of capsule 00:11: daily. [address] fluticasone 2018-09 Yes 1{puff} Inhale 1 Univers -umeclidin- 2-10 Puff ity of vilanter 00:11: daily. [address]) Branch 100-62.5-25 mcg DsDv aspirin 81 2018-09 Yes 81mg Take 81 mg U nivers mg EC 2-10 by mouth ity of tablet 00:11: daily. [address] varenicline 2018-09 Yes 1mg Take 1 mg U nivers (CHANTIX) 1 2-10 by mouth 2 it y of mg tablet 00:11: (two) [address] daily. Branch predniSONE 2018-09 Yes 20mg Take 20 mg U nivers 20 mg 2-10 by mouth ity of tablet 00:11: daily. [address] omeprazole 2018-09 Yes 40mg Take 40 mg U nivers 40 mg 2-10 by mouth ity of capsule 00:11: daily. [address] fluticasone 2018-09 Yes 1{puff} Inhale 1 Univers -umeclidin- 2-10 Puff ity of vilanter 00:11: daily. [place] ([address]) Branch 100-62.5-25 mcg DsDv aspirin 81 2018-09 Yes 81mg Take 81 mg U nivers mg EC 2-10 by mouth ity of tablet 00:11: daily. [address] varenicline 2018-09 Yes 1mg Take 1 mg U nivers (CHANTIX) 1 2-10 by mouth 2 it y of mg tablet 00:11: (two) [address] Medical daily. Branch predniSONE 2018-09 Yes 20mg Take 20 mg U nivers 20 mg 2-10 by mouth ity of tablet 00:11: daily. [address] omeprazole 2018-09 Yes 40mg Take 40 mg U nivers 40 mg 2-10 by mouth ity of capsule 00:11: daily. [address] fluticasone 2018-09 Yes 1{puff} Inhale 1 Univers -umeclidin- 2-10 Puff ity of vilanter 00:11: daily. [place] ([address]) Branch 100-62.5-25 mcg DsDv aspirin 81 2018-09 Yes 81mg Take 81 mg U nivers mg EC 2-10 by mouth ity of tablet 00:11: daily. [address] varenicline 2018-09 Yes 1mg Take 1 mg U nivers (CHANTIX) 1 2-10 by mouth 2 it y of mg tablet 00:11: (two) [address] Medical daily. Branch predniSONE 2018-09 Yes 20mg Take 20 mg U nivers 20 mg 2-10 by mouth ity of tablet 00:11: daily. [address] omeprazole 2018-09 Yes 40mg Take 40 mg U nivers 40 mg 2-10 by mouth ity of capsule 00:11: daily. [address] fluticasone 2018-09 Yes 1{puff} Inhale 1 Univers -umeclidin- 2-10 Puff ity of vilanter 00:11: daily. [place] ([address]) Branch 100-62.5-25 mcg DsDv aspirin 81 2018-09 Yes 81mg Take 81 mg U nivers mg EC 2-10 by mouth ity of tablet 00:11: daily. [address] varenicline 2018-09 Yes 1mg Take 1 mg U nivers (CHANTIX) 1 2-10 by mouth 2 it y of mg tablet 00:11: (two) [place] [id number] times Medical daily. Branch predniSONE 2018-09 Yes 20mg Take 20 mg U nivers 20 mg 2-10 by mouth ity of tablet 00:11: daily. [address] omeprazole 2018-09 Yes 40mg Take 40 mg U nivers 40 mg 2-10 by mouth ity of capsule 00:11: daily. [address] fluticasone 2019- Yes 1{puff} Inhale 1 Univers -umeclidin- 2-10 Puff ity of vilanter 00:11: daily. [place] ([place] [address] Medical [facility]) Branch 100-62.5-25 mcg DsDv aspirin 81 2018- Yes 81mg Take 81 mg U nivers mg EC 2-10 by mouth ity of tablet 00:11: daily. [address] omeprazole 2018- Yes 40mg Take 40 mg U nivers 40 mg 2-10 by mouth ity of capsule 00:11: daily. [address] omeprazole 2018- Yes 40mg Take 40 mg U nivers 40 mg 2-10 by mouth ity of capsule 00:11: daily. [address] omeprazole 2018- Yes 40mg Take 40 mg U nivers 40 mg 2-10 by mouth ity of capsule 00:11: daily. [address] omeprazole 2018- Yes 40mg Take 40 mg U nivers 40 mg 2-10 by mouth ity of capsule 00:11: daily. [address] omeprazole 2018- Yes 40mg Take 40 mg U nivers 40 mg 2-10 by mouth ity of capsule 00:11: daily. [address] omeprazole 2018- Yes 40mg Take 40 mg U nivers 40 mg 2-10 by mouth ity of capsule 00:11: daily. [address] omeprazole 2018- Yes 40mg Take 40 mg U nivers 40 mg 2-10 by mouth ity of capsule 00:11: daily. [address] omeprazole 2018- Yes 40mg Take 40 mg U nivers 40 mg 2-10 by mouth ity of capsule 00:11: daily. [address] omeprazole 2018- Yes 40mg Take 40 mg U nivers 40 mg 2-10 by mouth ity of capsule 00:11: daily. [address] omeprazole 2018- Yes 40mg Take 40 mg U nivers 40 mg 2-10 by mouth ity of capsule 00:11: daily. [address] omeprazole 2018- Yes 40mg Take 40 mg U nivers 40 mg 2-10 by mouth ity of capsule 00:11: daily. [address] omeprazole 2018-09 Yes 40mg Take 40 mg U nivers 40 mg 2-10 by mouth ity of capsule 00:11: daily. [address] omeprazole 2018-09 Yes 40mg Take 40 mg U nivers 40 mg 2-10 by mouth ity of capsule 00:11: daily. [address] Branch KCL 20 mEq 2018-09 Yes [id number] 40meq Take 2 Univers tablet 2-09 tablets by ity of 00:00: mouth [place] 00 daily. Medical Branch KCL 20 mEq 2018-09 Yes [id number] 40meq Take 2 Univers tablet 2-09 tablets by ity of 00:00: mouth [place] 00 daily. Medical Branch atorvastati 2018-09 Yes [id number] 20mg Take 1 Univers n 20 mg 2-09 tablet by ity of tablet 00:00: mouth at [place] 00 bedtime. Medical Branch metoprolol 2018-09 Yes [id number] 50mg Take 1 Univers succinate 2-09 tablet by ity o f XL 50 mg 24 00:00: mouth 2 [place] hr tablet 00 (two) Medical times Branch daily. furosemide 2018-09 Yes [id number] 40mg Take 1 Univers 40 mg 2-09 tablet by ity of tablet 00:00: mouth [place] 00 every Medical morning Branch and evening. KCL 20 mEq 2018-09 Yes [id number] 40meq Take 2 Univers tablet 2-09 tablets by ity of 00:00: mouth [place] 00 daily. Medical Branch atorvastati 2018-09 Yes [id number] 20mg Take 1 Univers n 20 mg 2-09 tablet by ity of tablet 00:00: mouth at [place] 00 bedtime. Medical Branch metoprolol 2018-09 Yes [id number] 50mg Take 1 Univers succinate 2-09 tablet by ity o f XL 50 mg 24 00:00: mouth 2 [place] hr tablet 00 (two) Medical times Branch daily. furosemide 2018-09 Yes [id number] 40mg Take 1 Univers 40 mg 2-09 tablet by ity of tablet 00:00: mouth [place] 00 every Medical morning Branch and evening. KCL 20 mEq 2018-09 Yes [id number] 40meq Take 2 Univers tablet 2-09 tablets by ity of 00:00: mouth [place] 00 daily. Medical Branch atorvastati 2018-09 Yes [id number] 20mg Take 1 Univers n 20 mg 2-09 tablet by ity of tablet 00:00: mouth at [place] 00 bedtime. Medical Branch metoprolol 2018-09 Yes [id number] 50mg Take 1 Univers succinate 2-09 tablet by ity o f XL 50 mg 24 00:00: mouth 2 [place] hr tablet 00 (two) Medical times Branch daily. furosemide 2018-09 Yes [id number] 40mg Take 1 Univers 40 mg 2-09 tablet by ity of tablet 00:00: mouth [place] 00 every Medical morning Branch and evening. KCL 20 mEq 2018-09 Yes [id number] 40meq Take 2 Univers tablet 2-09 tablets by ity of 00:00: mouth [place] 00 daily. Medical Branch atorvastati 2018-09 Yes [id number] 20mg Take 1 Univers n 20 mg 2-09 tablet by ity of tablet 00:00: mouth at [place] 00 bedtime. Medical Branch metoprolol 2018-09 Yes [id number] 50mg Take 1 Univers succinate 2-09 tablet by ity o f XL 50 mg 24 00:00: mouth 2 [place] hr tablet 00 (two) Medical times Branch daily. furosemide 2018-09 Yes [id number] 40mg Take 1 Univers 40 mg 2-09 tablet by ity of tablet 00:00: mouth [place] 00 every Medical morning Branch and evening. KCL 20 mEq 2018-09 Yes [id number] 40meq Take 2 Univers tablet 2-09 tablets by ity of 00:00: mouth [place] 00 daily. Medical Branch atorvastati 2018-09 Yes [id number] 20mg Take 1 Univers n 20 mg 2-09 tablet by ity of tablet 00:00: mouth at [place] 00 bedtime. Medical Branch metoprolol 2018-09 Yes [id number] 50mg Take 1 Univers succinate 2-09 tablet by ity o f XL 50 mg 24 00:00: mouth 2 [place] hr tablet 00 (two) Medical times Branch daily. furosemide 2018-09 Yes [id number] 40mg Take 1 Univers 40 mg 2-09 tablet by ity of tablet 00:00: mouth [place] 00 every Medical morning Branch and evening. KCL 20 mEq 2018-09 Yes [id number] 40meq Take 2 Univers tablet 2-09 tablets by ity of 00:00: mouth [place] 00 daily. Medical Branch atorvastati 2018-09 Yes [id number] 20mg Take 1 Univers n 20 mg 2-09 tablet by ity of tablet 00:00: mouth at [place] 00 bedtime. Medical Branch metoprolol 2018-09 Yes [id number] 50mg Take 1 Univers succinate 2-09 tablet by ity o f XL 50 mg 24 00:00: mouth 2 [place] hr tablet 00 (two) Medical times Branch daily. furosemide 2018-09 Yes [id number] 40mg Take 1 Univers 40 mg 2-09 tablet by ity of tablet 00:00: mouth [place] 00 every Medical morning Branch and evening. KCL 20 mEq 2018-09 Yes [id number] 40meq Take 2 Univers tablet 2-09 tablets by ity of 00:00: mouth [place] 00 daily. Medical Branch KCL 20 mEq 2018-09 Yes [id number] 40meq Take 2 Univers tablet 2-09 tablets by ity of 00:00: mouth [place] 00 daily. Medical Branch KCL 20 mEq 2018-09 Yes [id number] 40meq Take 2 Univers tablet 2-09 tablets by ity of 00:00: mouth [place] 00 daily. Medical Branch KCL 20 mEq 2018-09 Yes [id number] 40meq Take 2 Univers tablet 2-09 tablets by ity of 00:00: mouth [place] 00 daily. Medical Branch KCL 20 mEq 2018-09 Yes [id number] 40meq Take 2 Univers tablet 2-09 tablets by ity of 00:00: mouth [place] 00 daily. Medical Branch KCL 20 mEq 2018-09 Yes [id number] 40meq Take 2 Univers tablet 2-09 tablets by ity of 00:00: mouth [place] 00 daily. Medical Branch KCL 20 mEq 2018-09 Yes [id number] 40meq Take 2 Univers tablet 2-09 tablets by ity of 00:00: mouth [place] 00 daily. Medical Branch KCL 20 mEq 2018-09 Yes [id number] 40meq Take 2 Univers tablet 2-09 tablets by ity of 00:00: mouth [place] 00 daily. Medical Branch KCL 20 mEq 2018-09 Yes [id number] 40meq Take 2 Univers tablet 2-09 tablets by ity of 00:00: mouth [place] 00 daily. Medical Branch KCL 20 mEq 2018-09 Yes [id number] 40meq Take 2 Univers tablet 2-09 tablets by ity of 00:00: mouth [place] 00 daily. Medical Branch KCL 20 mEq 2018-09 Yes [id number] 40meq Take 2 Univers tablet 2-09 tablets by ity of 00:00: mouth [place] 00 daily. Medical Branch KCL 20 mEq 2018-09 Yes [id number] 40meq Take 2 Univers tablet 2-09 tablets by ity of 00:00: mouth [place] 00 daily. Medical Branch KCL 20 mEq 2018-09 Yes [id number] 40meq Take 2 Univers tablet 2-09 tablets by ity of 00:00: mouth [place] 00 daily. Medical Branch KCL 20 mEq 2018-09 Yes [id number] 40meq Take 2 Univers tablet 2-09 tablets by ity of 00:00: mouth [place] 00 daily. Medical Branch KCL 20 mEq 2018-09 Yes [id number] 40meq Take 2 Univers tablet 2-09 tablets by ity of 00:00: mouth [place] 00 daily. Medical Branch KCL 20 mEq 2018-09 Yes [id number] 40meq Take 2 Univers tablet 2-09 tablets by ity of 00:00: mouth [place] 00 daily. Medical Branch KCL 20 mEq 2018-09 Yes [id number] 40meq Take 2 Univers tablet 2-09 tablets by ity of 00:00: mouth [place] 00 daily. Medical Branch KCL 20 mEq 2018-09 Yes [id number] 40meq Take 2 Univers tablet 2-09 tablets by ity of 00:00: mouth [place] 00 daily. Medical Branch KCL 20 mEq 2018-09 Yes [id number] 40meq Take 2 Univers tablet 2-09 tablets by ity of 00:00: mouth [place] 00 daily. Medical Branch KCL 20 mEq 2018-09- No [id number] 40meq Take 2 Univers tablet 2-05 22-12 tablets by ity of 00:00: 00:00 mouth [place] 00 :00 daily. Medical Branch atorvastati 2018-09- No [id number] 20mg Take 1 Univers n 20 mg 10-28 tablet by ity of tablet 00:00: 00:00 mouth at [place] 00 :00 bedtime. Medical Branch metoprolol 2018-09- No [id number] 50mg Take 1 Univers succinate 10-28- tablet by ity of XL 50 mg 24 00:00: 00:00 mouth 2 [place] hr tablet 00 :00 (two) Medical times Branch daily. furosemide 2018-09- No [id number] 40mg Take 1 Univers 40 mg 2-09 03-26 tablet by ity of tablet 00:00: 00:00 mouth [place] 00 :00 every Medical morning Branch and evening. ipratropium Yes 3mL 3 mL, Unive rs -albuterol -16 Inhalation ity of (DUONEB) 13:00: , QID, [place] 0.5 mg-3 00 First dose Medic al mg(2.5 mg on Fri Branch base)/3 mL 05/04/19 at nebulizer 0800, solution 3 Until mL Discontinu ed, Routine ibuprofen Yes [id number] 600mg Take 1 U nivers 600 mg 5-31 tablet by ity of tablet 00:00: mouth [place] 00 every 8 Medical (eight) Branch hours as needed (PAIN). ibuprofen Yes [id number] 600mg Take 1 U nivers 600 mg 5-31 tablet by ity of tablet 00:00: mouth [place] 00 every 8 Medical (eight) Branch hours as needed (pain). ibuprofen 2019- No [id number] 600mg Take 1 Univers 600 mg 5-31 08-15 tablet by ity of tablet 00:00: 00:00 mouth [place] 00 :00 every 8 Medical (eight) Branch hours as needed (PAIN). ibuprofen 2019- No [id number] 600mg Take 1 Univers 600 mg 5-31 08-15 tablet by ity of tablet 00:00: 00:00 mouth [place] 00 :00 every 8 Medical (eight) Branch hours as needed (pain). magnesium Yes 400mg Take 1 Tab U nivers oxide 2-23 by mouth 3 ity of (MAG-OX 00:00: (three) [place] 400) 400 mg 00 times Medical tablet daily. Branch enalapril Yes [id number] 2.5mg Take 1 Tab Univers (VASOTEC) 2-23 [...] s tablet 00 Medical Branch furosemide Yes [id number] 40mg Take 1 Tab Univers (LASIX) 40 2-23 by mouth 2 ity of mg tablet 00:00: (two) [place] 00 times Medical daily. Branch metoprolol Yes 100mg Take 1 Tab Univers succinate 2-23 by mouth ity of XL (TOPROL 00:00: daily. [place] XL) 100 mg 00 Medical 24 hr Branch tablet magnesium 2018- No 400mg Take 1 Tab Univers oxide 2- 08-15 by mouth 3 ity of (MAG-OX 00:00: 00:00 (three) [place] 400) 400 mg 00 :00 times Medical tablet daily. Branch enalapril 2018- No [id number] 2.5mg Take 1 Tab Univers (VASOTEC) 2- 08-15 by mouth 2 ity of 2.5 mg 00:00: 00:00 (two) [place] tablet 00 :00 times Medical daily. Branch pantoprazol 2018- No 40mg Take 1 Tab Univers e 2- 08-15 by mouth ity of (PROTONIX) 00:00: 00:00 daily. [place] 40 mg EC 00 :00 Medical tablet Branch KCL 2019- No 20meq Take 1 Tab Unive rs (KLOR-CON - 08-15 by mouth ity o f M20) 20 mEq 00:00: 00:00 daily. [place] as tablet 00 :00 Medical Branch furosemide 2019- No [id number] 40mg Take 1 Tab Univers (LASIX) 40 2- 08-15 by mouth 2 it y of mg tablet 00:00: 00:00 (two) [place] 00 :00 times Medical daily. Branch metoprolol 2019- No 100mg Take 1 Tab Univers succinate 2- 08-15 by mouth ity o f XL (TOPROL 00:00: 00:00 daily. [place] XL) 100 mg 00 :00 Medical 24 hr Branch tablet aspirin 81 2013-09 Yes 81mg Take 1 Tab U nivers mg chewable 2-17 by mouth ity of tablet 00:00: daily. [place] 00 Medical Branch ipratropium 2013-09 Yes .5mg Inhale 2.5 Univers (ATROVENT) 2-17 mL 4 ity of 0.02 % 00:00: (four) [place] nebulizer 00 times Medical solution daily. Branch [...] by mouth ity of tablet 00:00: daily. [place] Medical Branch ipratropium 2013-09 Yes .5mg Inhale [...] by mouth ity of tablet 00:00: daily. [place] Medical Branch ipratropium 2013-09 Yes .5mg Inhale 2.5 Univers (ATROVENT) 2-17 mL 4 ity of 0.02 % 00:00: (four) [place] nebulizer 00 times Medical solution daily. Branch levalbutero 2013-09 Yes .31mg Inhale Uni vers l (XOPENEX) 2-17 0.31 mg 3 ity of 0.31 mg/3 00:00: (three) [place] mL 00 times Medical nebulizer daily. Branch solution aspirin 81 2014-1 Yes 81mg Take 1 Tab U nivers mg chewable 2-17 by mouth ity of tablet 00:00: daily. [place] Medical Branch ipratropium 2013-09 Yes .5mg Inhale [...] by mouth ity of tablet 00:00: daily. [place] Medical Branch ipratropium 2013-09 Yes .5mg Inhale [...] by mouth ity of tablet 00:00: daily. [place] [facility] Branch ipratropium 2013-09 Yes .5mg Inhale [...] by mouth ity of tablet 00:00: daily. [place] [facility] Branch ipratropium 2013-09 Yes .5mg Inhale [...] by mouth ity of tablet 00:00: daily. [place] [facility] Branch ipratropium 2013-09 Yes .5mg Inhale [...] by mouth ity of tablet 00:00: daily. [place] [facility] Branch ipratropium 2013-09 Yes .5mg Inhale [...] by mouth ity of tablet 00:00: daily. [place] [facility] Branch ipratropium 2013-09 Yes .5mg Inhale [...] by mouth ity of tablet 00:00: daily. [place] [facility] Branch ipratropium 2013-09 Yes .5mg Inhale [...] by mouth ity of tablet 00:00: daily. [place] [facility] Branch ipratropium 2013-09 Yes .5mg Inhale [...] by mouth ity of tablet 00:00: daily. [place] [facility] Branch ipratropium 2013-09 Yes .5mg Inhale [...] by mouth ity of tablet 00:00: daily. [place] [facility] Branch ipratropium 2013-09 Yes .5mg Inhale [...] by mouth ity of tablet 00:00: daily. [place] [facility] Branch ipratropium 2013-09 Yes .5mg Inhale [...] by mouth ity of tablet 00:00: daily. [place] [facility] Branch ipratropium 2013-09 Yes .5mg Inhale [...] by mouth ity of tablet 00:00: daily. [place] [facility] Branch ipratropium 2013-09 Yes .5mg Inhale [...] by mouth ity of tablet 00:00: daily. [place] [facility] Branch ipratropium 2013-09 Yes .5mg Inhale [...] by mouth ity of tablet 00:00: daily. [place] [facility] Branch ipratropium 2013-09 Yes .5mg Inhale [...] by mouth ity of tablet 00:00: daily. [place] [facility] ipratropium 2013-09 Yes .5mg Inhale [...] by mouth ity of tablet 00:00: daily. [place] [facility] Branch ipratropium 2013-09 Yes .5mg Inhale [...] by mouth ity of tablet 00:00: daily. [place] [facility] Branch ipratropium 2013-09 Yes .5mg Inhale [...] by mouth ity of tablet 00:00: daily. [place] [facility] Branch ipratropium 2013-09 Yes .5mg Inhale [...] mouth ity of tablet 00:00: 00:00 daily. [place] 00 : Medical Branch ipratropium 2013-09- No .5mg Inhale 2.5 Univers (ATROVENT) 2-17 03-12 mL 4 ity of 0.02 % 00:00: 00:00 (four) [place] nebulizer 00 :00 times Medical solution daily. Branch levalbutero 2013-09- No .31mg Inhale Un igor l (XOPENEX) 11-05-12 0.31 mg 3 it y of 0.31 mg/3 00:00: 00:00 (three) [place] mL 00 :00 times Medical nebulizer daily. Branch solution Immunizations Ordered Filled Immunization Date Status Comments [facility] e Immunization Name Name Pneumococcal 20 [...] Universit y of Conjugate, PCV20 00:00:00 [place] Co dical (Prevnar 20) Branch Pneumococcal 20 2022-12-12 [...] Universit y of Conjugate, PCV20 00:00:00 [place] [facility] dical (Prevnar 20) Branch Pneumococcal 20 2022-12-12 Completed Universit y of Conjugate, PCV20 00:00:00 [place] [facility] dical (Prevnar 20) Branch Pneumococcal 20 2022-12-12 Completed Universit y of Conjugate, PCV20 00:00:00 [place] [facility] dical (Prevnar 20) Branch Pneumococcal 20 2022-12-12 [...] Universit y of Conjugate, PCV20 00:00:00 [place] [facility]ical (Prevnar 20) Branch Pneumococcal 20 2022-12-12 Completed Universit y of Conjugate, PCV20 00:00:00 [place] [facility]ical (Prevnar 20) Branch Pneumococcal 20 2022-12-12 Completed Universit y of Conjugate, PCV20 00:00:00 [place] [facility] dical (Prevnar 20) Branch Pneumococcal 20 2022-12-12 Completed Universit y of Conjugate, PCV20 00:00:00 [place] [facility] dical (Prevnar 20) Branch Pneumococcal 20 2022-12-12 Completed Universit y of Conjugate, PCV20 00:00:00 [place] Me dical (Prevnar 20) Branch Pneumococcal 20 2022-12-12 Completed Universit y of Conjugate, PCV20 00:00:00 [place] [facility] dical (Prevnar 20) Branch Pneumococcal 20 2022-12-12 Completed Universit y of Conjugate, PCV20 00:00:00 [place] Me dical (Prevnar 20) Branch Pneumococcal 20 2022-12-12 Completed Universit y of Conjugate, PCV20 00:00:00 [place] Me dical (Prevnar 20) Branch Pneumococcal 20 2022-12-12 Completed Universit y of Conjugate, PCV20 00:00:00 [place] Me dical (Prevnar 20) Branch Pneumococcal 20 2022-12-12 Completed Universit y of Conjugate, PCV20 00:00:00 [place] Co dical (Prevnar 20) Branch Pneumococcal 20 2022-12-12 Completed Universit y of Conjugate, PCV20 00:00:00 [place] [facility] dical (Prevnar 20) Branch Pneumococcal 20 2022-12-12 Completed Universit y of Conjugate, PCV20 00:00:00 [facility] dical (Prevnar 20) Branch Pneumococcal 20 2022-12-12 Completed Universit y of Conjugate, PCV20 00:00:00 [facility] dical (Prevnar 20) Branch Pneumococcal 20 2022-12-12 Completed Universit y of Conjugate, PCV20 00:00:00 [facility] dical (Prevnar 20) Branch Pneumococcal 20 2022-12-12 Completed Universit y of Conjugate, PCV20 00:00:00 [facility] dical (Prevnar 20) Branch Pneumococcal 20 2022-12-12 Completed Universit y of Conjugate, PCV20 00:00:00 [facility] dical (Prevnar 20) Branch SARS-COV-2 COVID-19 2020-11-23 [...] Unive rsity of MODERNA 12+ YRS 00:00:00 [facility] ical VACCINE Branch SARS-COV-2 COVID-19 2020-10-26 Completed Unive rsity of MODERNA VACCINE 00:00:00 [facility] ical Branch SARS-COV-2 COVID-19 2020-10-26 Completed Unive rsity of MODERNA 12+ YRS 00:00:00 [facility] ical VACCINE Branch SARS-COV-2 COVID-19 2020-10-26 Completed Unive rsity of MODERNA 12+ YRS 00:00:00 [facility] ical VACCINE Branch SARS-COV-2 COVID-19 2020-10-26 Completed Unive rsity of MODERNA 12+ YRS 00:00:00 [facility] ical VACCINE Branch Td 2019-02-16 Completed University of 00:00:00 [facility] TD, NOS 2019-02-16 Completed University of 00:00:00 [facility] TD, NOS 2019-02-16 Completed University of 00:00:00 [facility] TD, NOS 2019-02-16 Completed University of 00:00:00 [facility] TD, NOS 2019-02-16 Completed University of 00:00:00 [facility] TD, NOS 2019-02-16 Completed University of 00:00:00 [facility] Td 2019-02-16 Completed University of 00:00:00 [facility] TD, NOS 2019-02-16 Completed University [...] TD, NOS 2019-02-16 Completed University of 00:00:00 [facility] TD, NOS 2019-02-16 Completed University of 00:00:00 [facility] Td 2019-02-16 Completed University of 00:00:00 [facility] TD, NOS 2019-02-16 Completed University of 00:00:00 [facility] TD, NOS 2019-02-16 Completed University of 00:00:00 [facility] TD, NOS 2019-02-16 Completed University of 00:00:00 [facility] Pneumococcal 2014-09-05 Completed University o f Polysaccharide, 00:00:00 [place] Med ical PPSV23 (PNEUMOVAX) Branch Influenza Virus 2014-09-05 Completed Universit y of Vaccine Quad IM 3+ 00:00:00 [facility] Pneumococcal 2014-09-05 Completed University o f Polysaccharide, 00:00:00 [place] Med ical PPSV23 (PNEUMOVAX) Branch Influenza Virus 2014-09-05 Completed Universit y of Vaccine Quad IM 3+ 00:00:00 [facility] Pneumococcal 2014-09-05 Completed University o f Polysaccharide, 00:00:00 [place] Med ical PPSV23 (PNEUMOVAX) Branch Influenza Virus 2014-09-05 Completed Universit y of Vaccine Quad IM 3+ 00:00:00 [facility] Pneumococcal 2014-09-05 Completed University o f Polysaccharide, 00:00:00 [place] Med ical PPSV23 (PNEUMOVAX) Branch Influenza Virus 2014-09-05 Completed Universit y of Vaccine Quad IM 3+ 00:00:00 [facility] Pneumococcal 2014-09-05 Completed University o f Polysaccharide, 00:00:00 [place] Med ical PPSV23 (PNEUMOVAX) Branch Influenza Virus 2014-09-05 Completed Universit y of Vaccine Quad IM 3+ 00:00:00 [facility] Pneumococcal 2014-09-05 Completed University o f Polysaccharide, 00:00:00 [place] Med ical PPSV23 (PNEUMOVAX) Branch Influenza Virus 2014-09-05 Completed Universit y of Vaccine Quad IM 3+ 00:00:00 [facility] Pneumococcal 2014-09-05 Completed University o f Polysaccharide, 00:00:00 [place] Med ical PPSV23 (PNEUMOVAX) Branch Influenza Virus 2014-09-05 Completed Universit y of Vaccine Quad IM 3+ 00:00:00 [facility] Pneumococcal 2014-09-05 Completed University o f Polysaccharide, 00:00:00 [place] Med ical PPSV23 (PNEUMOVAX) Branch Influenza Virus 2014-09-05 Completed Universit y of Vaccine Quad IM 3+ 00:00:00 [facility] Pneumococcal 2014-09-05 Completed University o f Polysaccharide, 00:00:00 [place] Med ical PPSV23 (PNEUMOVAX) Branch Influenza Virus 2014-09-05 Completed Universit y of Vaccine Quad IM 3+ 00:00:00 [facility] Pneumococcal 2014-09-05 Completed University o f Polysaccharide, 00:00:00 [place] Med ical PPSV23 (PNEUMOVAX) Branch Influenza Virus 2014-09-05 Completed Universit y of Vaccine Quad IM 3+ 00:00:00 [facility] Pneumococcal 2014-09-05 Completed University o f Polysaccharide, 00:00:00 [place] Med ical PPSV23 (PNEUMOVAX) Branch Influenza Virus 2014-09-05 Completed Universit y of Vaccine Quad IM 3+ 00:00:00 [facility] Pneumococcal 2014-09-05 Completed University o f Polysaccharide, 00:00:00 [place] Med ical PPSV23 (PNEUMOVAX) Branch Influenza Virus 2014-09-05 Completed Universit y of Vaccine Quad IM 3+ 00:00:00 [facility] Pneumococcal 2014-09-05 Completed University o f Polysaccharide, 00:00:00 [place] Med ical PPSV23 (PNEUMOVAX) Branch Influenza Virus 2014-09-05 Completed Universit y of Vaccine Quad IM 3+ 00:00:00 [facility] Influenza Virus 2014-09-05 Completed Universit y of Vaccine Quad IM 3+ 00:00:00 [facility] Pneumococcal 2014-09-05 Completed University o f Polysaccharide, 00:00:00 [place] Med ical PPSV23 (PNEUMOVAX) Branch Pneumococcal 2014-09-05 Completed University o f Polysaccharide, 00:00:00 [place] Med ical PPSV23 (PNEUMOVAX) Branch Influenza Virus 2014-09-05 Completed Universit y of Vaccine Quad IM 3+ 00:00:00 [facility] Pneumococcal 2014-09-05 Completed University o f Polysaccharide, 00:00:00 [place] Med ical PPSV23 (PNEUMOVAX) Branch Influenza Virus 2014-09-05 Completed Universit y of Vaccine Quad IM 3+ 00:00:00 [facility] Pneumococcal 2014-09-05 Completed [facility] Polysaccharide, 00:00:00 [place] [facility] PPSV23 (PNEUMOVAX) Branch Influenza Virus 2014-09-05 Completed [facility] Vaccine Quad IM 3+ 00:00:00 [facility] Pneumococcal 2014-09-05 Completed [facility] o f Polysaccharide, 00:00:00 [place] [facility] PPSV23 (PNEUMOVAX) Branch Influenza Virus 2014-09-05 Completed [facility] of Vaccine Quad IM 3+ 00:00:00 [facility] Pneumococcal 2014-09-05 Completed [facility] f Polysaccharide, 00:00:00 [place] [facility] PPSV23 (PNEUMOVAX) Branch Influenza Virus 2014-09-05 Completed [facility] of Vaccine Quad IM 3+ 00:00:00 [facility] Pneumococcal 2014-09-05 Completed [facility] f Polysaccharide, 00:00:00 [place] [facility] PPSV23 (PNEUMOVAX) Branch Influenza Virus 2014-09-05 Completed [facility] of Vaccine Quad IM 3+ 00:00:00 [facility] Pneumococcal 2014-09-05 Completed [facility] f Polysaccharide, 00:00:00 [place] [facility] PPSV23 (PNEUMOVAX) Branch Influenza Virus 2014-09-05 Completed [facility] of Vaccine Quad IM 3+ 00:00:00 [facility] Pneumococcal 2014-09-05 Completed [facility] o f Polysaccharide, 00:00:00 [place] [facility] PPSV23 (PNEUMOVAX) Branch Influenza Virus 2014-09-05 Completed [facility] of Vaccine Quad IM 3+ 00:00:00 [facility] Pneumococcal 2014-09-05 Completed [facility] f Polysaccharide, 00:00:00 [place] [facility] PPSV23 (PNEUMOVAX) Branch Influenza Virus 2014-09-05 Completed [facility] Vaccine Quad IM 3+ 00:00:00 [facility] Pneumococcal 2014-09-05 Completed [facility] f Polysaccharide, 00:00:00 [place] [facility] PPSV23 (PNEUMOVAX) Branch Influenza Virus 2014-09-05 Completed [facility] of Vaccine Quad IM 3+ 00:00:00 [facility] Pneumococcal 2014-09-05 Completed [facility] f Polysaccharide, 00:00:00 [place] [facility] PPSV23 (PNEUMOVAX) Branch Influenza Virus 2014-09-05 Completed [facility] of Vaccine Quad IM 3+ 00:00:00 [facility] Pneumococcal 2014-09-05 Completed [facility] f Polysaccharide, 00:00:00 [place] [facility] PPSV23 (PNEUMOVAX) Branch Influenza Virus 2014-09-05 Completed [facility] of Vaccine Quad IM 3+ 00:00:00 [facility] Pneumococcal 2014-09-05 Completed [facility] f Polysaccharide, 00:00:00 [place] [facility] PPSV23 (PNEUMOVAX) Branch Influenza Virus 2014-09-05 Completed [facility] Vaccine Quad IM 3+ 00:00:00 [facility] Pneumococcal 2014-09-05 Completed [facility] f Polysaccharide, 00:00:00 [place] [facility] PPSV23 (PNEUMOVAX) Branch Influenza Virus 2014-09-05 Completed [facility] Vaccine Quad IM 3+ 00:00:00 [facility] Pneumococcal 2014-09-05 Completed [facility] f Polysaccharide, 00:00:00 [place] [facility] PPSV23 (PNEUMOVAX) Branch Influenza Virus 2014-09-05 Completed [facility] Vaccine Quad IM 3+ 00:00:00 [facility] Pneumococcal 2014-09-05 Completed [facility] f Polysaccharide, 00:00:00 [place] [facility] PPSV23 (PNEUMOVAX) Branch Influenza Virus 2014-09-05 Completed [facility] of Vaccine Quad IM 3+ 00:00:00 [facility] Pneumococcal 2014-09-05 Completed [facility] f Polysaccharide, 00:00:00 [place] [facility] PPSV23 (PNEUMOVAX) Branch Influenza Virus 2014-09-05 Completed [facility] Vaccine Quad IM 3+ 00:00:00 [facility] Influenza Virus 2014-09-05 Completed [facility] Vaccine Quad IM 3+ 00:00:00 [facility] Pneumococcal 2014-09-05 Completed [facility] f Polysaccharide, 00:00:00 [place] [facility] PPSV23 (PNEUMOVAX) Branch Pneumococcal 2014-09-05 Completed [facility] f Polysaccharide, 00:00:00 [place] [facility] PPSV23 (PNEUMOVAX) Branch Influenza Virus 2014-09-05 Completed [facility] Vaccine Quad IM 3+ 00:00:00 [facility] Pneumococcal 2014-09-05 Completed [facility] f Polysaccharide, 00:00:00 [place] [facility] PPSV23 (PNEUMOVAX) Branch Influenza Virus 2014-09-05 Completed [facility] Vaccine Quad IM 3+ 00:00:00 [facility] Pneumococcal 2014-09-05 Completed [facility] f Polysaccharide, 00:00:00 [place] [facility] PPSV23 (PNEUMOVAX) Branch Influenza Virus 2014-09-05 Completed [facility] Vaccine Quad IM 3+ 00:00:00 [facility] Pneumococcal 2014-09-05 Completed [facility] f Polysaccharide, 00:00:00 [place] [facility] PPSV23 (PNEUMOVAX) Branch Influenza Virus 2014-09-05 Completed [facility] Vaccine Quad IM 3+ 00:00:00 [facility] Pneumococcal 2014-09-05 Completed [facility] f Polysaccharide, 00:00:00 [place] [facility] PPSV23 (PNEUMOVAX) Branch Influenza Virus 2014-09-05 Completed [facility] Vaccine Quad IM 3+ 00:00:00 [facility] Pneumococcal 2014-09-05 Completed [facility] f Polysaccharide, 00:00:00 [place] [facility] PPSV23 (PNEUMOVAX) Branch Influenza Virus 2014-09-05 Completed [facility] Vaccine Quad IM 3+ 00:00:00 [facility] Pneumococcal 2014-09-05 Completed [facility] f Polysaccharide, 00:00:00 [place] [facility] PPSV23 (PNEUMOVAX) Branch Influenza Virus 2014-09-05 Completed [facility] Vaccine Quad IM 3+ 00:00:00 [facility] Pneumococcal 2014-09-05 Completed [facility] f Polysaccharide, 00:00:00 [place] [facility] PPSV23 (PNEUMOVAX) Branch Influenza Virus 2014-09-05 Completed [facility] Vaccine Quad IM 3+ 00:00:00 [facility] Pneumococcal 2014-09-05 Completed [facility] f Polysaccharide, 00:00:00 [place] [facility] PPSV23 (PNEUMOVAX) Branch Influenza Virus 2014-09-05 Completed [facility] Vaccine Quad IM 3+ 00:00:00 [facility] Pneumococcal 2014-09-05 Completed [facility] f Polysaccharide, 00:00:00 [place] [facility] PPSV23 (PNEUMOVAX) Branch Influenza Virus 2014-09-05 Completed [facility] Vaccine Quad IM 3+ 00:00:00 [facility] Pneumococcal 2014-09-05 Completed [facility] f Polysaccharide, 00:00:00 [place] [facility] PPSV23 (PNEUMOVAX) Branch Influenza Virus 2014-09-05 Completed [facility] Vaccine Quad IM 3+ 00:00:00 [facility] Pneumococcal 2014-09-05 Completed [facility] f Polysaccharide, 00:00:00 [place] [facility] PPSV23 (PNEUMOVAX) Branch Influenza Virus 2014-09-05 Completed [facility] of Vaccine Quad IM 3+ 00:00:00 [facility] Pneumococcal 2014-09-05 Completed [facility] f Polysaccharide, 00:00:00 [place] [facility] PPSV23 (PNEUMOVAX) Branch Influenza Virus 2014-09-05 Completed [facility] of Vaccine Quad IM 3+ 00:00:00 [facility] Pneumococcal 2014-09-05 Completed [facility] f Polysaccharide, 00:00:00 [place] [facility] PPSV23 (PNEUMOVAX) Branch Influenza Virus 2014-09-05 Completed [facility] of Vaccine Quad IM 3+ 00:00:00 [facility] Pneumococcal 2014-09-05 Completed [facility] f Polysaccharide, 00:00:00 [place] [facility] PPSV23 (PNEUMOVAX) Branch Influenza Virus 2014-09-05 Completed [facility] of Vaccine Quad IM 3+ 00:00:00 [facility] Pneumococcal 2014-09-05 Completed [facility] o f Polysaccharide, 00:00:00 [place] [facility] PPSV23 (PNEUMOVAX) Branch Influenza Virus 2014-09-05 Completed [facility] of Vaccine Quad IM 3+ 00:00:00 [facility] Pneumococcal 2014-09-05 Completed [facility] o f Polysaccharide, 00:00:00 [place] [facility] PPSV23 (PNEUMOVAX) Branch Influenza Virus 2014-09-05 Completed [facility] of Vaccine Quad IM 3+ 00:00:00 [facility] Pneumococcal 2014-09-05 Completed [facility] f Polysaccharide, 00:00:00 [place] [facility] PPSV23 (PNEUMOVAX) Branch Influenza Virus 2014-09-05 Completed [facility] of Vaccine Quad IM 3+ 00:00:00 [facility] Pneumococcal 2014-09-05 Completed [facility] o f Polysaccharide, 00:00:00 [place] [facility] PPSV23 (PNEUMOVAX) Branch Influenza Virus 2014-09-05 Completed [facility] of Vaccine Quad IM 3+ 00:00:00 [facility] Pneumococcal 2014-09-05 Completed [facility] o f Polysaccharide, 00:00:00 [place] [facility] PPSV23 (PNEUMOVAX) Branch Influenza Virus 2014-09-05 Completed [facility] of Vaccine Quad IM 3+ 00:00:00 [facility] Pneumococcal 2014-09-05 Completed [facility] o f Polysaccharide, 00:00:00 [place] [facility] PPSV23 (PNEUMOVAX) Branch Influenza Virus 2014-09-05 Completed [facility] of Vaccine Quad IM 3+ 00:00:00 [facility] Pneumococcal 2014-09-05 Completed [facility] o f Polysaccharide, 00:00:00 [place] [facility] PPSV23 (PNEUMOVAX) Branch Influenza Virus 2014-09-05 Completed [facility] of Vaccine Quad IM 3+ 00:00:00 [facility] Pneumococcal 2014-09-05 Completed [facility] o f Polysaccharide, 00:00:00 [place] [facility] PPSV23 (PNEUMOVAX) Branch Influenza Virus 2014-09-05 Completed [facility] of Vaccine Quad IM 3+ 00:00:00 [facility] Pneumococcal 2014-09-05 Completed [facility] o f Polysaccharide, 00:00:00 [place] [facility] PPSV23 (PNEUMOVAX) Branch Influenza Virus 2014-09-05 Completed [facility] of Vaccine Quad IM 3+ 00:00:00 [facility] Pneumococcal 2014-09-05 Completed [facility] o f Polysaccharide, 00:00:00 [place] [facility] PPSV23 (PNEUMOVAX) Branch Influenza Virus 2014-09-05 Completed [facility] of Vaccine Quad IM 3+ 00:00:00 [facility] Pneumococcal 2014-09-05 Completed [facility] o f Polysaccharide, 00:00:00 [place] [facility] PPSV23 (PNEUMOVAX) Branch Influenza Virus 2014-09-05 Completed [facility] of Vaccine Quad IM 3+ 00:00:00 [facility] Pneumococcal 2014-09-05 Completed [facility] o f Polysaccharide, 00:00:00 [place] [facility] PPSV23 (PNEUMOVAX) Branch Influenza Virus 2014-09-05 Completed [facility] of Vaccine Quad IM 3+ 00:00:00 [facility] Pneumococcal 2014-09-05 Completed [facility] o f Polysaccharide, 00:00:00 [place] [facility] PPSV23 (PNEUMOVAX) Branch Influenza Virus 2014-09-05 Completed [facility] of Vaccine Quad IM 3+ 00:00:00 [facility] Pneumococcal 2014-09-05 Completed [facility] o f Polysaccharide, 00:00:00 [place] [facility] PPSV23 (PNEUMOVAX) Branch Influenza Virus 2014-09-05 Completed [facility] of Vaccine Quad IM 3+ 00:00:00 [facility] Pneumococcal 2014-09-05 Completed [facility] o f Polysaccharide, 00:00:00 [place] [facility] PPSV23 (PNEUMOVAX) Branch Influenza Virus 2014-09-05 Completed [facility] of Vaccine Quad IM 3+ 00:00:00 [facility] Pneumococcal 2014-09-05 Completed [facility] o f Polysaccharide, 00:00:00 [place] [facility] PPSV23 (PNEUMOVAX) Branch Influenza Virus 2014-09-05 Completed [facility] of Vaccine Quad IM 3+ 00:00:00 [facility] Influenza Virus 2014-09-05 Completed [facility]it [facility] of Vaccine Quad IM 3+ 00:00:00 [facility] Pneumococcal 2014-09-05 Completed [facility] o f Polysaccharide, 00:00:00 [place] [facility] PPSV23 (PNEUMOVAX) Branch Pneumococcal 2014-09-05 Completed [facility] o f Polysaccharide, 00:00:00 [place] [facility] PPSV23 (PNEUMOVAX) Branch Influenza Virus 2014-09-05 Completed [facility] of Vaccine Quad IM 3+ 00:00:00 [facility] Pneumococcal 2014-09-05 Completed [facility] o f Polysaccharide, 00:00:00 [place] [facility] PPSV23 (PNEUMOVAX) Branch Influenza Virus 2014-09-05 Completed [facility] of Vaccine Quad IM 3+ 00:00:00 [facility] Pneumococcal 2014-09-05 Completed [facility] o f Polysaccharide, 00:00:00 [place] [facility] PPSV23 (PNEUMOVAX) Branch Influenza Virus 2014-09-05 Completed [facility] of Vaccine Quad IM 3+ 00:00:00 [facility] Pneumococcal 2014-09-05 Completed [facility] o f Polysaccharide, 00:00:00 [place] [facility] PPSV23 (PNEUMOVAX) Branch Influenza Virus 2014-09-05 Completed [facility] of Vaccine Quad IM 3+ 00:00:00 [facility] Vital Signs Vital Name Observation Time Observation Value Comments Source Systolic blood 2023-03-01 143 mm[Hg] University of pressure 20:27:00 [facility] Diastolic blood 2023-03-01 87 mm[Hg] University o f pressure 20:27:00 [facility] Heart rate 2023-03-01 99 /min University 20:27:00 [facility] Body height 2023-03-01 177.8 cm University of 20:27:00 [facility] Body weight 2023-03-01 57.153 kg University of 20:27:00 [facility] BMI 2023-03-01 18.08 kg/m2 University of 20:27:00 [facility] Oxygen saturation 2023-03-01 99 /min University of in Arterial blood 20:27:00 [facility] by Pulse oximetry Branch Systolic blood 2023-02-18 144 mm[Hg] University of pressure 16:17:00 [facility] Diastolic blood 2023-02-18 68 mm[Hg] University o f pressure 16:17:00 [facility] Heart rate 2023-02-18 55 /min University of 16:17:00 [facility] Body temperature 2023-02-18 36.06 Tia University of 16:17:00 [facility] Respiratory rate 2023-02-18 18 /min University of 16:17:00 [facility] Oxygen saturation 2023-02-18 100 /min University in Arterial blood 16:17:00 [facility] by Pulse oximetry Branch Body weight 2023-02-18 58.968 kg University of 07:50:00 [facility] BMI 2023-02-18 18.65 kg/m2 University of 07:50:00 [facility] Body height 2023-02-16 177.8 cm University of 00:31:00 [facility] Oxygen saturation 2023-02-07 99 /min University of in Arterial blood 19:29:00 [facility] by Pulse oximetry Branch Systolic blood 2023-02-07 103 mm[Hg] University of pressure 19:27:00 [facility] Diastolic blood 2023-02-07 75 mm[Hg] University o f pressure 19:27:00 [facility] Heart rate 2023-02-07 104 /min University of 19:27:00 [facility] Body temperature 2023-02-07 36.39 Tia University of 19:27:00 [facility] Respiratory rate 2023-02-07 22 /min University of 19:27:00 [facility] Body weight 2023-02-07 72.576 kg University of 19:27:00 [facility] BMI 2023-02-07 22.96 kg/m2 University of 19:27:00 [facility] Heart rate 2023-02-05 85 /min University of 20:17:00 [facility] Respiratory rate 2023-02-05 18 /min University of 20:17:00 [facility] Oxygen saturation 2023-02-05 100 /min University of in Arterial blood 20:17:00 [facility] by Pulse oximetry Branch Systolic blood 2023-02-05 98 mm[Hg] University of pressure 19:53:35 [facility] Diastolic blood 2023-02-05 71 mm[Hg] University o f pressure 19:53:35 [facility] Body temperature 2023-02-05 36.5 Tia University of 19:51:00 [facility] Body height 2023-02-05 177.8 cm University of 19:51:00 [facility] Body weight 2023-02-05 72.576 kg University of 19:51:00 [facility] BMI 2023-02-05 22.96 kg/m2 University of 19:51:00 [facility] Heart rate 2023-02-04 76 /min University of 20:31:00 [facility] Respiratory rate 2023-02-04 18 /min University of 20:31:00 [facility] Oxygen saturation 2023-02-04 97 /min University of in Arterial blood 20:31:00 [facility] by Pulse oximetry Branch Systolic blood 2023-02-04 126 mm[Hg] University of pressure 20:15:00 [facility] Diastolic blood 2023-02-04 98 mm[Hg] University o f pressure 20:15:00 [facility] Body temperature 2023-02-04 36.83 Tia University of 20:15:00 [facility] Body weight 2023-02-04 72.576 kg University of 20:15:00 [facility] BMI 2023-02-04 22.96 kg/m2 University of 20:15:00 [facility] Systolic blood 2023-02-03 100 mm[Hg] University of pressure 23:00:00 [facility] Diastolic blood 2023-02-03 65 mm[Hg] University o f pressure 23:00:00 [facility] Heart rate 2023-02-03 115 /min University of 23:00:00 [facility] Respiratory rate 2023-02-03 20 /min University of 23:00:00 [facility] Oxygen saturation 2023-02-03 97 /min University of in Arterial blood 23:00:00 [facility] by Pulse oximetry Branch Body temperature 2023-02-03 36.72 Tia University of 22:44:00 [facility] Body weight 2023-02-03 72.576 kg University of 22:44:00 [facility] BMI 2023-02-03 22.96 kg/m2 University of 22:44:00 [facility] Systolic blood 2023-02-03 128 mm[Hg] University of pressure 20:02:00 [facility] Diastolic blood 2023-02-03 81 mm[Hg] University o f pressure 20:02:00 [facility] Heart rate 2023-02-03 88 /min University of 20:02:00 [facility] Respiratory rate 2023-02-03 25 /min University of 20:02:00 [facility] Oxygen saturation 2023-02-03 94 /min University of in Arterial blood 20:02:00 [facility] by Pulse oximetry Branch Body temperature 2023-02-03 36.61 Tia University of 18:18:00 [facility] Body weight 2023-02-03 72.576 kg University of 17:41:00 [facility] BMI 2023-02-03 22.96 kg/m2 University of 17:41:00 [facility] Heart rate 2023-02-02 107 /min University of 22:49:00 [facility] Respiratory rate 2023-02-02 20 /min University of 22:49:00 [facility] Oxygen saturation 2023-02-02 94 /min University of in Arterial blood 22:49:00 [facility] by Pulse oximetry Branch Systolic blood 2023-02-02 102 mm[Hg] University of pressure 22:32:00 [facility] Diastolic blood 2023-02-02 74 mm[Hg] University o f pressure 22:32:00 [facility] Body temperature 2023-02-02 35.83 Tia University of 21:58:32 [facility] Body height 2023-02-02 177.8 cm University of 21:54:00 [facility] Body weight 2023-02-02 72.576 kg University of 21:54:00 [facility] BMI 2023-02-02 22.96 kg/m2 University of 21:54:00 [facility] Systolic blood 2023-01-31 140 mm[Hg] University of pressure 21:00:00 [facility] Diastolic blood 2023-01-31 72 mm[Hg] University o f pressure 21:00:00 [facility] Heart rate 2023-01-31 89 /min University of 21:00:00 [facility] Respiratory rate 2023-01-31 20 /min University of 21:00:00 [facility] Oxygen saturation 2023-01-31 97 /min University of in Arterial blood 21:00:00 [facility] by Pulse oximetry Branch Body temperature 2023-01-31 36.72 Tia University of 18:50:00 [facility] Body weight 2023-01-31 72.576 kg University of 18:50:00 [facility] BMI 2023-01-31 22.96 kg/m2 University of 18:50:00 [facility] Systolic blood 2023-01-31 130 mm[Hg] University of pressure 16:09:00 [facility] Diastolic blood 2023-01-31 72 mm[Hg] University o f pressure 16:09:00 [facility] Heart rate 2023-01-31 99 /min University of 16:09:00 [facility] Body temperature 2023-01-31 36.39 Tia University of 16:09:00 [facility] Respiratory rate 2023-01-31 18 /min University of 16:09:00 [facility] Body height 2023-01-31 177.8 cm University of 16:09:00 [facility] Body weight 2023-01-31 72.576 kg University of 16:09:00 [facility] BMI 2023-01-31 22.96 kg/m2 University of 16:09:00 [facility] Oxygen saturation 2023-01-31 97 /min University of in Arterial blood 16:09:00 [facility] by Pulse oximetry Branch Systolic blood 2023-01-31 134 mm[Hg] University of pressure 14:50:00 [facility] Diastolic blood 2023-01-31 72 mm[Hg] University o f pressure 14:50:00 [facility] Heart rate 2023-01-31 85 /min University of 14:50:00 [facility] Body temperature 2023-01-31 36.39 Tia University of 14:50:00 [facility] Respiratory rate 2023-01-31 20 /min University of 14:50:00 [facility] Body weight 2023-01-31 72.576 kg University of 14:50:00 [facility] BMI 2023-01-31 22.96 kg/m2 University of 14:50:00 [facility] Oxygen saturation 2023-01-31 100 /min University of in Arterial blood 14:50:00 [place] [facility] Pulse oximetry [facility] Respiratory rate 2023-01-29 20 /min University of 13:40:00 [facility] Oxygen saturation 2023-01-29 100 /min University of in Arterial blood 13:40:00 [place] [facility] Pulse oximetry [facility] Systolic blood 2023-01-29 123 mm[Hg] University of pressure 13:06:00 [facility] Diastolic blood 2023-01-29 76 mm[Hg] University o f pressure 13:06:00 [facility] Heart rate 2023-01-29 97 /min University of 13:06:00 [facility] Body temperature 2023-01-29 36.61 Tia University of 13:06:00 [facility] Body height 2023-01-29 177.8 cm [facility] 13:06:00 [facility] Body weight 2023-01-29 72.576 kg [facility] 13:06:00 [facility] BMI 2023-01-29 22.96 kg/m2 [facility] 13:06:00 [facility] Systolic blood 2023-01-27 115 mm[Hg] [facility] of pressure 11:47:00 [facility] Diastolic blood 2023-01-27 75 mm[Hg] University o f pressure 11:47:00 [facility] Heart rate 2023-01-27 100 /min [facility] 11:47:00 [facility] Body temperature 2023-01-27 35.78 Tia [facility] 11:47:00 [facility] Respiratory rate 2023-01-27 28 /min [facility] 11:47:00 [facility] Oxygen saturation 2023-01-27 99 /min [facility] of in Arterial blood 11:47:00 [facility] Body height 2023-01-27 177.8 cm [facility] 09:57:00 [facility] Body weight 2023-01-27 72.576 kg [facility] 09:57:00 [facility] BMI 2023-01-27 22.96 kg/m2 [facility] 09:57:00 [facility] Heart rate 2023-01-24 88 /min [facility] 20:55:00 [facility] Oxygen saturation 2023-01-24 93 /min [facility] in Arterial blood 20:55:00 [facility] Respiratory rate 2023-01-24 22 /min [facility] 20:52:00 [facility] Systolic blood 2023-01-24 128 mm[Hg] [facility] pressure 20:30:00 [facility] Diastolic blood 2023-01-24 69 mm[Hg] [facility] pressure 20:30:00 [facility] Body temperature 2023-01-24 36.67 Tia [facility] 17:24:00 [facility] Body height 2023-01-24 177.8 cm [facility] 17:24:00 [facility] Body weight 2023-01-24 72.576 kg [facility] 17:24:00 [facility] BMI 2023-01-24 22.96 kg/m2 [facility] 17:24:00 [facility] Systolic blood 2023-01-24 129 mm[Hg] [facility] pressure 01:00:00 [facility] Diastolic blood 2023-01-24 76 mm[Hg] [facility] pressure 01:00:00 [facility] Heart rate 2023-01-24 77 /min [facility] 01:00:00 [facility] Respiratory rate 2023-01-24 18 /min [facility] 01:00:00 [facility] Oxygen saturation 2023-01-24 99 /min [facility] in Arterial blood 01:00:00 [facility] Body temperature 2023-01-24 35.61 Tia warm blankets [facility] of 00:02:00 applied [facility] Body weight 2023-01-24 58.968 kg [facility] 00:02:00 [facility] BMI 2023-01-24 18.65 kg/m2 [facility] 00:02:00 [facility] Heart rate 2023-01-22 93 /min [facility] 23:46:00 [facility] Respiratory rate 2023-01-22 20 /min [facility] 23:46:00 [facility] Oxygen saturation 2023-01-22 100 /min [facility] of in Arterial blood 23:46:00 [facility] Systolic blood 2023-01-22 146 mm[Hg] [facility] pressure 23:21:00 [facility] Diastolic blood 2023-01-22 93 mm[Hg] [facility] pressure 23:21:00 [facility] Body temperature 2023-01-22 36.72 Tia [facility] 23:21:00 [facility] Body weight 2023-01-22 58.968 kg [facility] 23:21:00 [facility] BMI 2023-01-22 18.65 kg/m2 [facility] 23:21:00 [facility] Heart rate 2023-01-21 84 /min [facility] 21:57:00 [facility] Respiratory rate 2023-01-21 18 /min [facility] of :57:00 [facility] Oxygen saturation 2023-01-21 97 /min [facility] in Arterial blood 21:57:00 [facility] Systolic blood 2023-01-21 103 mm[Hg] [facility] pressure 21:00:00 [facility] Diastolic blood 2023-01-21 61 mm[Hg] [facility] pressure 21:00:00 [facility] Body temperature 2023-01-21 36.56 Tia [facility] 19:24:00 [facility] Body weight 2023-01-21 58.968 kg [facility] 19:24:00 [facility] BMI 2023-01-21 18.65 kg/m2 [facility] 19:24:00 [facility] Systolic blood 2023-01-19 111 mm[Hg] [facility] pressure 21:00:00 [facility] Diastolic blood 2023-01-19 64 mm[Hg] [facility] pressure 21:00:00 [facility] Heart rate 2023-01-19 85 /min [facility] of :00:00 [facility] Body temperature 2023-01-19 36.56 Tia [facility] 21:00:00 [facility] Respiratory rate 2023-01-19 17 /min [facility] :00:00 [facility] Oxygen saturation 2023-01-19 98 /min [facility] in Arterial blood 21:00:00 [facility] Body height 2023-01-19 177.8 cm [facility] 06:22:00 [facility] Body weight 2023-01-19 58.968 kg [facility] 06:22:00 [facility] BMI 2023-01-19 18.65 kg/m2 [facility] 06:22:00 [facility] Systolic blood 2023-01-17 116 mm[Hg] [facility] pressure 12:05:00 [facility] Diastolic blood 2023-01-17 69 mm[Hg] [facility] pressure 12:05:00 [facility] Heart rate 2023-01-17 100 /min [facility] 12:05:00 [facility] Respiratory rate 2023-01-17 24 /min [facility] 12:05:00 [facility] Oxygen saturation 2023-01-17 93 /min [facility] in Arterial blood 12:05:00 [facility] Body temperature 2023-01-17 35.39 Tia [facility] 10:59:00 [facility] Body height 2023-01-17 177.8 cm [facility] 10:59:00 [facility] Body weight 2023-01-17 58.968 kg [facility] 10:59:00 [facility] BMI 2023-01-17 18.65 kg/m2 [facility] 10:59:00 [facility] Systolic blood 2023-01-07 122 mm[Hg] [facility] pressure 19:38:00 [facility] Diastolic blood 2023-01-07 86 mm[Hg] [facility] pressure 19:38:00 [facility] Heart rate 2023-01-07 110 /min [facility] 19:38:00 [facility] Respiratory rate 2023-01-07 16 /min [facility] 19:38:00 [facility] Body height 2023-01-07 177.8 cm [facility] 19:38:00 [facility] Body weight 2023-01-07 59.966 kg [facility] 19:38:00 [facility] BMI 2023-01-07 18.97 kg/m2 [facility] 19:38:00 [facility] Systolic blood 2022-12-26 118 mm[Hg] [facility] pressure 18:00:00 [facility] Diastolic blood 2022-12-26 79 mm[Hg] [facility] pressure 18:00:00 [facility] Heart rate 2022-12-26 93 /min [facility] 18:00:00 [facility] Respiratory rate 2022-12-26 20 /min [facility] 18:00:00 [facility] Oxygen saturation 2022-12-26 95 /min [facility] in Arterial blood 18:00:00 [facility] Body temperature 2022-12-26 36.11 Tia [facility] 15:49:00 [facility] Body height 2022-12-26 177.8 cm [facility] 15:49:00 [facility] Body weight 2022-12-26 72.576 kg [facility] 15:49:00 [facility] BMI 2022-12-26 22.96 kg/m2 [facility] 15:49:00 [facility] Respiratory rate 2022-12-12 18 /min [facility] 16:45:00 [facility] Oxygen saturation 2022-12-12 99 /min [facility] in Arterial blood 16:45:00 [facility] Systolic blood 2022-12-12 135 mm[Hg] [facility] pressure 16:11:00 [facility] Diastolic blood 2022-12-12 80 mm[Hg] [facility] pressure 16:11:00 [facility] Heart rate 2022-12-12 77 /min [facility] 16:11:00 [facility] Body temperature 2022-12-12 35.89 Tia [facility] 16:11:00 [facility] Body weight 2022-12-12 65 kg [facility] 08:50:00 [facility] BMI 2022-12-12 20.56 kg/m2 [facility] 08:50:00 [facility] Body height 2022-12-11 177.8 cm [facility] 04:23:00 [facility] Heart rate 2022-12-04 95 /min [facility] 12:33:00 [facility] Respiratory rate 2022-12-04 17 /min [facility] 12:33:00 [facility] Oxygen saturation 2022-12-04 98 /min [facility] in Arterial blood 12:33:00 [facility] Systolic blood 2022-12-04 125 mm[Hg] [facility] pressure 12:20:00 [facility] Diastolic blood 2022-12-04 74 mm[Hg] [facility] pressure 12:20:00 [facility] Body temperature 2022-12-04 36.61 Tia [facility] 12:20:00 [facility] Body height 2022-12-02 177.8 cm [facility] 05:16:00 [facility] Body weight 2022-12-02 72.576 kg [facility] 05:16:00 [facility] BMI 2022-12-02 22.96 kg/m2 [facility] 05:16:00 [facility] Systolic blood 2022-12-01 114 mm[Hg] [facility] pressure 13:00:00 [facility] Diastolic blood 2022-12-01 78 mm[Hg] [facility] pressure 13:00:00 [facility] Heart rate 2022-12-01 88 /min [facility] 13:00:00 [facility] Respiratory rate 2022-12-01 20 /min [facility] 13:00:00 [facility] Oxygen saturation 2022-12-01 98 /min [facility] in Arterial blood 13:00:00 [facility] Body temperature 2022-12-01 36.67 Tia [facility] 10:13:00 [facility] Body height 2022-12-01 177.8 cm [facility] 10:13:00 [facility] Body weight 2022-12-01 72.576 kg [facility] 10:13:00 [facility] BMI 2022-12-01 22.96 kg/m2 [facility] 10:13:00 [facility] Systolic blood 2022-11-28 154 mm[Hg] [facility] pressure 17:00:00 [facility] Diastolic blood 2022-11-28 106 mm[Hg] [facility] pressure 17:00:00 [facility] Heart rate 2022-11-28 87 /min [facility] 17:00:00 [facility] Respiratory rate 2022-11-28 23 /min [facility] 17:00:00 [facility] Oxygen saturation 2022-11-28 96 /min [facility] in Arterial blood 17:00:00 [facility] Body temperature 2022-11-28 36.78 Tia [facility] 16:00:00 [facility] Body weight 2022-11-27 67.132 kg [facility] 12:00:00 [facility] BMI 2022-11-27 21.24 kg/m2 [facility] 12:00:00 [facility] Body height 2022-11-27 177.8 cm [facility] 08:39:00 [facility] Systolic blood 2022-11-19 152 mm[Hg] [facility] pressure 10:48:00 [facility] Diastolic blood 2022-11-19 88 mm[Hg] [facility] o f pressure 10:48:00 [facility] Heart rate 2022-11-19 92 /min [facility] 10:48:00 [facility] Respiratory rate 2022-11-19 16 /min [facility] 10:48:00 [facility] Oxygen saturation 2022-11-19 98 /min [facility] in Arterial blood 10:48:00 [facility] Body temperature 2022-11-19 36.22 Tia [facility] 08:20:00 [facility] Body height 2022-11-19 177.8 cm [facility] 08:20:00 [facility] Body weight 2022-11-19 67.132 kg [facility] 08:20:00 [facility] BMI 2022-11-19 21.24 kg/m2 [facility] 08:20:00 [facility] Systolic blood 2022-11-19 152 mm[Hg] [facility] pressure 02:18:57 [facility] Diastolic blood 2022-11-19 91 mm[Hg] [facility] pressure 02:18:57 [facility] Heart rate 2022-11-19 109 /min [facility] 02:18:57 [facility] Respiratory rate 2022-11-19 22 /min [facility] 02:18:57 [facility] Oxygen saturation 2022-11-19 95 /min [facility] in Arterial blood 02:18:57 [facility] Body temperature 2022-11-19 36.78 Tia [facility] 02:17:11 [facility] Body height 2022-11-19 177.8 cm [facility] 00:52:00 [facility] Body weight 2022-11-19 67.132 kg [facility] 00:52:00 [facility] BMI 2022-11-19 21.24 kg/m2 [facility] 00:52:00 [facility] Heart rate 2022-11-11 75 /min [facility] 17:35:00 [facility] Respiratory rate 2022-11-11 18 /min [facility] 17:35:00 [facility] Oxygen saturation 2022-11-11 95 /min [facility] in Arterial blood 17:35:00 [facility] Systolic blood 2022-11-11 130 mm[Hg] [facility] pressure 17:25:00 [facility] Diastolic blood 2022-11-11 71 mm[Hg] [facility] pressure 17:25:00 [facility] Body temperature 2022-11-11 35.94 Tia [facility] 17:25:00 [facility] Body weight 2022-11-11 77.52 kg [facility] 09:34:00 [facility] BMI 2022-11-11 24.52 kg/m2 [facility] 09:34:00 [facility] Body height 2022-11-09 177.8 cm [facility] 19:30:00 [facility] Systolic blood 2020-12-29 96 mm[Hg] [facility] pressure 15:24:00 [facility] Diastolic blood 2020-12-29 66 mm[Hg] [facility] o [facility] pressure 15:24:00 [facility] Heart rate 2020-12-29 71 /min [facility] 15:24:00 [facility] Body temperature 2020-12-29 36.33 Tia [facility] 15:24:00 [facility] Body weight 2020-12-29 72.576 kg [facility] 15:24:00 [facility] BMI 2020-12-29 22.96 kg/m2 [facility] 15:24:00 [facility] Oxygen saturation 2020-12-29 95 /min [facility] in Arterial blood 15:24:00 [facility] Systolic blood 2020-12-18 117 mm[Hg] [facility] pressure 19:07:00 [facility] Diastolic blood 2020-12-18 77 mm[Hg] [facility] pressure 19:07:00 [facility] Heart rate 2020-12-18 77 /min [facility] 19:07:00 [facility] Body temperature 2020-12-18 36.22 Tia [facility] 19:07:00 [facility] Respiratory rate 2020-12-18 18 /min [facility] 19:07:00 [facility] Body height 2020-12-18 177.8 cm [facility] 19:07:00 [facility] Body weight 2020-12-18 73.211 kg [facility] 19:07:00 [facility] BMI 2020-12-18 23.16 kg/m2 [facility] 19:07:00 [facility] Systolic blood 2020-12-12 109 mm[Hg] [facility] pressure 18:00:00 [facility] Diastolic blood 2020-12-12 74 mm[Hg] [facility] o f pressure 18:00:00 [facility] Heart rate 2020-12-12 78 /min [facility] 18:00:00 [facility] Respiratory rate 2020-12-12 20 /min [facility] 18:00:00 [facility] Oxygen saturation 2020-12-12 96 /min [facility] in Arterial blood 18:00:00 [place] [facility] Body temperature 2020-12-12 37.28 Tia [facility] 16:33:00 [facility] Body height 2020-12-12 177.8 cm [facility] 16:33:00 [facility] Body weight 2020-12-12 70.308 kg [facility] 16:33:00 [facility] BMI 2020-12-12 22.24 kg/m2 [facility] 16:33:00 [facility] Systolic blood 2020-12-08 125 mm[Hg] [facility] pressure 18:55:00 [facility] Diastolic blood 2020-12-08 82 mm[Hg] [facility] o [facility] pressure 18:55:00 [facility] Heart rate 2020-12-08 75 /min [facility] 18:55:00 [facility] Body temperature 2020-12-08 36.56 Tia [facility] 18:55:00 [facility] Respiratory rate 2020-12-08 16 /min [facility] 18:55:00 [facility] Body height 2020-12-08 177.8 cm [facility] 18:55:00 [facility] Body weight 2020-12-08 73.12 kg [facility] 18:55:00 [facility] BMI 2020-12-08 23.13 kg/m2 [facility] 18:55:00 [facility] Systolic blood 2019-05-04 127 mm[Hg] [facility] pressure 04:21:00 [facility] Diastolic blood 2019-05-04 86 mm[Hg] [facility] pressure 04:21:00 [facility] Heart rate 2019-05-04 99 /min [facility] 04:21:00 [facility] Respiratory rate 2019-05-04 26 /min [facility] 04:21:00 [facility] Body height 2019-05-04 177.8 cm [facility] 04:21:00 [facility] Body weight 2019-05-04 72.576 kg [facility] 04:21:00 [facility] BMI 2019-05-04 22.96 kg/m2 [facility] 04:21:00 [facility] Oxygen saturation 2019-05-04 99 /min [facility] in Arterial blood 04:21:00 [facility] Systolic blood 2019-05-04 127 mm[Hg] [facility] pressure 04:21:00 [facility] Diastolic blood 2019-05-04 86 mm[Hg] [facility] o f pressure 04:21:00 [facility] Heart rate 2019-05-04 99 /min [facility] 04:21:00 [facility] Respiratory rate 2019-05-04 26 /min [facility] 04:21:00 [facility] Body height 2019-05-04 177.8 cm [facility] 04:21:00 [facility] Body weight 2019-05-04 72.576 kg [facility] 04:21:00 [facility] BMI 2019-05-04 22.96 kg/m2 [facility] 04:21:00 [facility] Oxygen saturation 2019-05-04 99 /min [facility] in Arterial blood 04:21:00 [facility] Procedures Procedure Date / Time Performing Clinician Source Performed CONSENT/REFUSAL FOR 2023-03-01 19:49:30 Doctor Unassigned, No Un [facility] DIAGNOSIS AND TREATMENT Name Medical Branch TRANSTHORACIC ECHO (TTE) 2023-02-16 13:56:56 Dedrick Toth [facility] COMPLETE W/ CONTRAST Medical Bra nch TROPONIN I 2023-02-16 11:32:00 Dedrick Toth [facility] COMP. METABOLIC PANEL 2023-02-16 11:32:00 Dedrick Toth [facility] ([id number] CBC WITH DIFF 2023-02-16 11:32:00 Dedrick Toth [facility] N-TERMINAL PRO-BNP 2023-02-16 11:32:00 Dedrick Toth [facility] URINALYSIS 2023-02-15 21:18:00 Francisca Bryant [facility] HB ECG ROUTINE & RHYTHM 2023-02-15 20:15:35 Francisca Bryant [facility] XR CHEST 1 VW 2023-02-15 20:14:30 Francisca Bryant [facility] AC PANEL 21 + LACTIC 2023-02-15 20:02:00 Francisca Bryant [facility] ACID [facility] MAGNESIUM 2023-02-15 20:01:00 Francisca Bryant [facility] TROPONIN I 2023-02-15 20:01:00 Francisca Bryant [facility] COMP. METABOLIC PANEL 2023-02-15 20:01:00 Francisca Bryant [facility] ([id number]) [facility] CBC WITH DIFF 2023-02-15 20:01:00 Francisca Bryant [facility] ASSIGNMENT OF BENEFITS 2023-02-07 19:52:07 Doctor Unassigned, No [facility] CONSENT/REFUSAL FOR 2023-02-07 19:51:03 Doctor Unassigned, No [facility] [place] [facility] CONSENT/REFUSAL FOR 2023-02-04 19:51:56 Doctor Unassigned, No [facility] [place] [facility] Name [facility] TROPONIN I 2023-01-31 20:21:00 [facility] 2023-01-31 20:21:00 Rachael Flowers [facility] ([id number]) [facility] ETHANOL 2023-01-31 20:21:00 Kristie [facility] CBC WITH DIFF 2023-01-31 20:21:00 Kristie [facility] N-TERMINAL PRO-BNP 2023-01-31 20:21:00 Rachael Flowers [facility] CONSENT/REFUSAL FOR 2023-01-31 18:39:05 Doctor Unassigned, No [facility] [place] [facility] Name [facility] CONSENT/REFUSAL FOR 2023-01-31 15:54:08 Doctor Unassigned, No [facility] [place] [facility] Name [facility] CONSENT/REFUSAL FOR 2023-01-31 14:29:18 Doctor Unassigned, No [facility] [place] [facility] Name [facility] ACUTE CARE VENOUS BLOOD 2023-01-27 10:45:00 Bessie Oswald [facility] GAS [facility] TROPONIN I 2023-01-27 10:16:00 Bessie Oswald [facility] BASIC METABOLIC PANEL 2023-01-27 10:16:00 Bessie Oswald [facility] (NA, K, CL, CO2, Medical Branch GLUCOSE, BUN, CREATININE, CA) CBC WITH DIFF 2023-01-27 10:16:00 Bessie Oswald [facility] N-TERMINAL PRO-BNP 2023-01-27 10:16:00 Bessie Oswald [facility] URINALYSIS 2023-01-24 20:23:00 Stephanie Almonte [facility] CT HEAD WO CONTRAST 2023-01-24 19:38:00 Stephanie Almonte [facility] AC ABG + LACTIC ACID 2023-01-24 18:37:00 [facility] AM[facility], PLASMA 2023-01-24 18:19:00 Stephanie Almonte [facility] RAPID STREP SCREEN FOR 2023-01-24 18:19:00 Stephanie Almonte [facility] GROUP A [facility] COVID-19 (ID NOW RAPID 2023-01-24 18:19:00 Stephanie Almonte [facility] TESTING) [facility] TROPONIN I 2023-01-24 17:52:00 Stephanie Almonte [facility] COMP. METABOLIC PANEL 2023-01-24 17:52:00 Stephanie Almonte [facility] ([id number]) [facility] ETHANOL 2023-01-24 17:52:00 Stephanie Almonte [facility] CBC WITH DIFF 2023-01-24 17:52:00 Stephanie Almonte [facility] N-TERMINAL PRO-BNP 2023-01-24 17:52:00 Stephanie Almonte [facility] COMP. METABOLIC PANEL 2023-01-21 20:58:00 Louis Hong [facility] ([id number]) [facility] TROPONIN I 2023-01-21 20:05:00 Louis Hong [facility] CBC WITH DIFF 2023-01-21 20:05:00 Singer [facility] N-TERMINAL PRO-BNP 2023-01-21 20:05:00 Louis Hong [facility] AC PANEL 21 + LACTIC 2023-01-19 08:31:00 Lew [facility] ACID [facility] D-DIMER 2023-01-19 08:17:00 Lew [facility] BASIC METABOLIC PANEL 2023-01-19 08:15:00 Iza Varma [facility] (NA, K, CL, CO2, Medical Branch GLUCOSE, BUN, CREATININE, CA) CBC WITH DIFF 2023-01-19 08:15:00 Iza Varma [facility] N-TERMINAL PRO-BNP 2023-01-19 08:15:00 Agapito Hackett [facility] EKG-12 LEAD 2023-01-17 12:23:30 Marisol Devlin [facility] XR CHEST 1 VW 2023-01-17 11:25:05 Marisol Devlin [facility] TROPONIN I 2023-01-17 11:04:00 Marisol Devlin [facility] COMP. METABOLIC PANEL 2023-01-17 11:04:00 Marisol Devlin [facility] ([id number]) [facility] CBC WITH DIFF 2023-01-17 11:04:00 Marisol Devlin [facility] N-TERMINAL PRO-BNP 2023-01-17 11:04:00 Marisol Devlin [facility] COMP. METABOLIC PANEL 2022-12-26 17:23:00 Iza Varma [facility] ([id number]) [facility] XR CHEST 1 VW 2022-12-26 16:39:21 Iza Varma [facility] URINE DRUG (IMMUNOASSAY) 2022-12-26 16:29:00 Iza Varma [facility] Medical [facility] SCREEN URINALYSIS 2022-12-26 16:29:00 Iza Varma [facility] CBC WITH DIFF 2022-12-26 16:28:00 Iza Varma [facility] MAGNESIUM 2022-12-12 08:55:00 Karri [facility] BASIC METABOLIC PANEL 2022-12-12 08:55[facility] ([facility], K, CL, CO2, Medical Branch GLUCOSE, BUN, CREATININE, CA) LIPID PANEL 2022-12-12 08:55:00 Karri [facility] ([id number])(TOTAL Medical Branch CHOLESTEROL, TRIGLYCERIDES, HDL) N-TERMINAL PRO-BNP 2022-12-12 08:55:00 Travis Zeng [facility] MAGNESIUM 2022-12-11 08:30:00 Dedrick Toth [facility] OSMOLALITY, SERUM OR 2022-12-11 08:30:00 Dedrick Toth [facility] FREE T4 2022-12-11 08:30:00 Dedrick Toth [facility] BASIC METABOLIC PANEL 2022-12-11 08:30:00 Dedrick Toth [facility] (NA, K, CL, CO2, Medical Branch GLUCOSE, BUN, CREATININE, CA) CBC WITH DIFF 2022-12-11 08:30:00 Dedrick Toth [facility] N-TERMINAL PRO-BNP 2022-12-11 08:30:00 Dedrick Toth [facility] OSMOLALITY URINE 2022-12-11 03:24:00 Dedrick Toth [facility] SODIUM, URINE RANDOM 2022-12-11 03:24:00 Dedrick Toth [facility] URINALYSIS 2022-12-11 01:15:00 Singer [facility] HB ECG ROUTINE & RHYTHM 2022-12-11 00:38:04 Singer Louis [facility] CT HEAD WO CONTRAST 2022-12-11 00:32:23 Louis Hong [facility] XR CHEST 1 VW 2022-12-11 00:29:20 Singer [facility] TROPONIN I 2022-12-11 00:08:00 Singer [facility] COMP. METABOLIC PANEL 2022-12-11 00:08:00 Louis [facility] ([id number][facility] Medical Branch ETHANOL 2022-12-11 00:08:00 Singer [facility] CBC WITH DIFF 2022-12-11 [facility] 2022-12-11 00:08:00 Hong, [facility] LACTIC ACID WHOLE BLOOD 2022-12-11 00:03:00 [facility], [facility] AUTHORIZATION FOR 2022-12-09 05:01:00 Doctor Unassigned, No [facility] RELEASE OF PHI Name [facility] BASIC METABOLIC PANEL 2022-12-04 10:43:00 Evawv [facility] (NA, K, CL, CO2, Medical Branch GLUCOSE, BUN, CREATININE, CA) CBC WITH DIFF 2022-12-04 10:43:00 Ben [facility] OSMOLALITY URINE 2022-12-03 17:05:00 Juan Miguelantony Sudhakar [facility] SODIUM, URINE RANDOM 2022-12-03 17:05:00 Juan MiguelSudhakar hardy [facility] MAGNESI[facility] 2022-12-03 10:20:00 Ben [facility] BASIC METABOLIC PANEL 2022-12-03 10:20:00 Ben [facility] (NA, K, CL, CO2, Medical Branch GLUCOSE, BUN, CREATININE, CA) CBC WITH DIFF 2022-12-03 10:20:00 Evawv [facility] BASIC METABOLIC PANEL 2022-12-02 05:27:00 Carlo [facility] (NA, K, CL, CO2, [facility] GLUCOSE, BUN, CREATININE, CA) CONSENT/REFUSAL FOR 2022-12-02 05:08:30 Doctor Unassigned, No Un [facility] DIAGNOSIS AND TREATMENT [facility] HOSPITAL ADMISSION 2022-12-02 05:01:00 Doctor Unassigned, No Uni [facility] COVID-19 (ID NOW RAPID 2022-12-01 13:01:00 Ernesto Piper [facility] TESTING) [facility] XR CHEST 1 VW 2022-12-01 12:40:25 Marisol Devlin [facility] EKG-12 LEAD 2022-12-01 12:17:26 Marisol Devlin [facility] ACUTE CARE ARTERIAL 2022-12-01 12:06:00 Marisol Devlin [facility] BLOOD GAS Medical Branch TROPONIN I 2022-12-01 11:51:00 Marisol Devlin [facility] BASIC METABOLIC PANEL 2022-12-01 11:51:00 Marisol Devlin [facility] (NA, K, CL, CO2, Medical Branch GLUCOSE, BUN, CREATININE, CA) CBC WITH DIFF 2022-12-01 11:51:00 Marisol Devlin [facility] BASIC METABOLIC PANEL 2022-11-28 16:51:00 Leila Chapa [facility] (NA, K, CL, CO2, Medical Branch GLUCOSE, BUN, CREATININE, CA) URIC ACID 2022-11-28 08:14:00 [facility] 2022-11-28 08:14:00 Reyna [facility] HORMONE [facility] BASIC METABOLIC PANEL 2022-11-28 08:14:00 Leila Chapa [facility] (NA, K, CL, CO2, Medical Branch GLUCOSE, BUN, CREATININE, CA) CBC WITH DIFF 2022-11-28 08:14:00 María Diaz [facility] BASIC METABOLIC PANEL 2022-11-28 04:16:00 María Diaz [facility] (NA, K, CL, CO2, Medical Branch GLUCOSE, BUN, CREATININE, CA) BASIC METABOLIC PANEL 2022-11-28 00:33:00 Leila Chapa [facility] (NA, K, CL, CO2, Medical Branch GLUCOSE, BUN, CREATININE, CA) BASIC METABOLIC PANEL 2022-11-27 19:55:00 María Diaz [facility] (NA, K, CL, CO2, Medical Branch GLUCOSE, BUN, CREATININE, CA) MRSA / MSSA SCREEN BY 2022-11-27 09:21:00 María Diaz [facility] PCR, NARES [facility] OSMOLALITY, SERUM OR 2022-11-27 09:10:00 María Diaz [facility] PLASMA [facility] OSMOLALITY URINE 2022-11-27 09:04:00 María Diaz [facility] BASIC METABOLIC PANEL 2022-11-27 09:04:00 María Diaz [facility] (NA, K, CL, CO2, Medical Branch GLUCOSE, BUN, CREATININE, CA) URINE DRUG (IMMUNOASSAY) 2022-11-27 09:04:00 María Diaz [facility] Medical [facility] SCREEN URINALYSIS 2022-11-27 09:04:00 María Diaz [facility] CREATININE, URINE RANDOM 2022-11-27 09:04:00 María Diaz [facility] SODIUM, URINE RANDOM 2022-11-27 09:04:00 María Diaz [facility] XR CHEST 1 VW 2022-11-27 06:15:54 Bessie Oswald [facility] MAGNESIUM 2022-11-27 05:33:00 María Diaz [facility] TROPONIN I 2022-11-27 05:33:00 Bessie Oswald [facility] COMP. METABOLIC PANEL 2022-11-27 05:33:00 Bessie Oswald [facility] ([id number]) [facility] ETHANOL 2022-11-27 05:33:00 Bessie Oswald [facility] CBC WITH DIFF 2022-11-27 05:33:00 Bessie Oswald [facility] GLYCOSYLATED HEMOGLOBIN 2022-11-27 05:33:00 Leila Chapa [facility] (A1C) [facility] N-TERMINAL PRO-BNP 2022-11-27 05:33:00 Bessie Oswald [facility] HB ECG ROUTINE & RHYTHM 2022-11-27 05:31:54 Bessie Oswald [facility] STRIP [facility] COMP. METABOLIC PANEL 2022-11-19 08:44:00 Iza Varma [facility] ([id number]) [facility] CBC WITH DIFF 2022-11-19 08:44:00 Iza Varma [facility] N-TERMINAL PRO-BNP 2022-11-19 08:44:00 Iza Varma [facility] BASIC METABOLIC PANEL 2022-11-11 10:52:00 Iza [facility] (NA, K, CL, CO2, Medical Branch GLUCOSE, BUN, CREATININE, CA) CBC WITH DIFF 2022-11-11 10:52:00 Iza Eden [facility] BASIC METABOLIC PANEL 2022-11-11 02:16:00 [facility] (NA, K, CL, CO2, Medical Branch GLUCOSE, BUN, CREATININE, CA) BASIC METABOLIC PANEL 2022-11-10 22:45:00 [facility] (NA, K, CL, CO2, Medical Branch GLUCOSE, BUN, CREATININE, CA) BASIC METABOLIC PANEL 2022-11-10 17:27:00 [facility] ([facility], K, CL, CO2, Medical Branch GLUCOSE, BUN, CREATININE, CA) BASIC METABOLIC PANEL 2022-11-10 11:49:00 [facility] (NA, K, CL, CO2, Medical Branch GLUCOSE, BUN, CREATININE, CA) MAGNESIUM 2022-11-10 07:14:00 Karri [facility] BASIC METABOLIC PANEL 2022-11-10 07:14:00 [facility] (NA, K, CL, CO2, Medical Branch GLUCOSE, BUN, CREATININE, CA) CBC WITH DIFF 2022-11-10 07:14:[address] [facility] XR CHEST 1 VW 2022-11-09 07:53:00 Marisol Devlin [facility] LIPASE 2022-11-09 07:53:00 Marisol Devlin [facility] TROPONIN I 2022-11-09 07:53:00 Marisol Devlin [facility] COMP. METABOLIC PANEL 2022-11-09 07:53:00 Marisol Devlin [facility] ([id number]) Medical Branch CBC WITH DIFF 2022-11-09 07:53:00 Marisol Devlin [facility] N-TERMINAL PRO-BNP 2022-11-09 07:53:00 Marisol Devlin [facility] Medical [place] ACUTE CARE ARTERIAL 2022-11-09 07:50:00 Marisol Devlin [facility] BLOOD GAS Medical Branch HB ECG ROUTINE & RHYTHM 2022-11-09 07:39:47 Marisol Devlin [facility] STRIP Medical Branch ASSIGNMENT OF BENEFITS 2021-05-20 19:26:54 Doctor Unassigned, No [facility] POCT URINALYSIS AUTO 2020-12-18 19:04:00 Gokul Turner [facility] Medical [place] CT ABDOMEN PELVIS W 2020-12-12 17:25:03 Francisca Bryant [facility] BASIC METABOLIC PANEL 2020-12-12 16:47:00 Francisca Bryant [facility] (NA, K, CL, CO2, Medical Branch GLUCOSE, BUN, CREATININE, CA) CBC WITH DIFF 2020-12-12 16:47:00 Francisca Bryant [facility] URINALYSIS 2020-12-12 16:47:00 Francisca Bryant [facility] Medical [place] NOTICE OF PRIVACY 2020-12-12 16:28:57 Doctor Unassigned, No [facility] Medical Branch CONSENT/REFUSAL FOR 2020-12-12 16:28:23 Doctor Unassigned, No [facility] [place] [facility] Name Medical Branch POCT URINALYSIS AUTO 2020-12-08 18:56:00 Jeanette Mcdaniel [facility] Medical [place] CONSENT/REFUSAL FOR 2020-12-08 18:26:17 Doctor Unassigned, No [facility] [place] [facility] TREATMENT Name Medical Branch ASSIGNMENT OF BENEFITS 2020-12-08 18:25:58 Doctor Unassigned, No [facility] Medical Branch AUTHORIZATION FOR 2020-02-20 05:01:00 Doctor Unassigned, No [facility] RELEASE OF PHI Name Medical Branch NOTICE OF PRIVACY 2019-05-04 04:10:29 Doctor Unassigned, No [facility] Medical Branch CONSENT/REFUSAL FOR 2019-05-04 04:10:09 Doctor Unassigned, No [facility] [place] DIAG[facility]IS AND TREATMENT Name Medical Branch Encounters Start End Encounter Admission Attending Care Care Encounter Source Date/Time Date/Time Type Type Clinicians Facility Department ID 2021-07-19 Emergency [facility] [id number] Univers 08:46:33 ity of [facility] 2023-03-15 2023-03-19 Inpatient EM Rudy Xiao HCAWU INTE.02 [id number] [facility] 07:16:00 14:47:00 22 [facility] 2023-03-01 2023-03-01 Office [facility] [id number] Univers 16:30:00 17:00:00 Visit HerminiaPrintio.ru [id number] it y of [place] 4.2.7.2.686 Nelson as JACKIE?BLEA [phone] [facility] [address] [place] MEDICAL OFFICE [facility] 2023-03-01 2023-03-01 Outpatient R ADRIANO [facility] [id number] Univers 16:30:00 16:30:00 HERMINIA ity [facility] 2023-03-01 2023-03-01 Orders Doctor FRIEDMAN [id number] Univers 00:00:00 00:00:00 Only Unassigned, ASHER [id number] ity of [place] [facility] 4.2.7.2.686 Nelson as [id number] [facility] 009 Branch 2023-03-01 2023-03-01 Refill Christa [facility] [id number] Univers 00:00:00 00:00:00 , Mily HEALTH [id number] ity of [place]aley DERAS 4.2.7.2.686 Nelson as JACKIE?BLEA [phone] Co dical NATALEE [address] [place] MEDICAL OFFICE BUILDING 2023-02-21 2023-02-21 Transition GARY Frye 1.2.840.114 [id number] Univers 00:00:00 00:00:00 of Care Taylor GUADARRAMAY [id number] it y [place] [id number] [facility] 403 Branch 2023-02-15 2023-02-18 Inpatient X KARRI [facility] [id number] Univers 14:41:00 16:11:00 TRAVIS deepa [facility] 2023-02-15 2023-02-18 Hospital Iza Varma [facility] 1.2.840.11 [id number] Univers 14:41:00 16:11:00 Encounter Francisca Bryant 350.1.13 .10 ity of WandaMono ganphuc PATHAK 4.2.7.2.686 [facility] [id number] [address] 2023-02-07 2023-02-07 Emergency X [facility] ERT [id number] Univers 14:30:00 16:01:00 PRADIP [facility] 2023-02-07 2023-02-07 Emergency [facility] 1.2.840.114 [id number] Univers 14:30:00 16:01:00 Pradip DERAS 350.1.13.10 ity [facility] 4.2.7.2.686 [facility] [id number] [address] 2023-02-07 2023-02-07 Outpatient R CARL ORLANDO [facility] [id number] Univers 10:20:00 10:20:00 CARL ORLANDO deepa [facility] 2023-02-05 2023-02-05 Emergency X [facility] ERT [id number] Univers 14:53:00 16:10:00 HERMINIA judge [facility] 2023-02-05 2023-02-05 Emergency [facility] [id number] Univers 14:53:00 16:10:00 Herminia DERAS [id number] i ty leti PATHAK 4.2.7.2.686 [facility] [id number] [address] 2023-02-04 2023-02-04 Emergency X [facility] ERT [id number] Univers 15:26:00 16:25:00 FRANCISCA judge [facility] 2023-02-04 2023-02-04 Emergency [facility] 1.2.840.114 [id number] Univers 15:26:00 16:25:00 Francisca Mena BRAEDEN 350.1.13.10 ity of [place] 4.2.7.2.686 [facility] [id number] [address] 2023-02-03 2023-02-03 Emergency X , [facility] ERT [id number] Univers 17:46:00 18:47:00 LOUIS judge [facility] 2023-02-03 2023-02-03 Emergency X , [facility] ERT [id number] Univers 17:46:00 18:47:00 L[place] judge [facility] 2023-02-03 2023-02-03 Emergency , [facility] [id number] Univers 17:46:00 18:47:00 Louis DERAS [id number] i ty of [facility] 4.2.7.2.686 [facility] [id number] [address] 2023-02-03 2023-02-03 Emergency [facility] [id number] Univers 12:43:00 15:04:00 Bessie DERAS 350.1.13.10 i ty of [place] 4.2.7.2.686 [facility] [id number] [address] 2023-02-02 2023-02-02 Emergency X , [facility] ERT [id number] Univers 16:49:00 18:10:00 [place] judge [facility] 2023-02-02 2023-02-02 Emergency Hong, [facility] [id number] Univers 16:49:00 18:10:00 Loius DERAS [id number] i ty of [place] 4.2.7.2.686 [facility] [id number] [address] 2023-01-31 2023-01-31 Emergency Sandie FOLWERS, [facility] ERT [id number] Univers 13:55:00 16:50:00 RACHAEL judge [facility] 2023-01-31 2023-01-31 Emergency X KRISTIE, [facility] ERT [id number] Univers 13:55:00 16:50:00 RACHAEL judge [facility] 2023-01-31 2023-01-31 Emergency Kristie, [facility] 1.2.840.114 [id number] Univers 13:55:00 16:50:00 Rachael DERAS 350.1.13.10 i ty of [facility] 4.2.7.2.686 [facility] [id number] [address] 2023-01-31 2023-01-31 Emergency X [facility] ERT [id number] Univers 11:11:00 12:12:00 LEOBARDO judge [facility] 2023-01-31 2023-01-31 Emergency [facility] [id number] Univers 11:11:00 12:12:00 Leobardo DERAS 350.1.13.10 i ty of [facility] 4.2.7.2.686 [facility] [id number] [address] 2023-01-31 2023-01-31 Emergency [facility] [id number] Univers 09:51:00 10:16:00 MENDELRADHA 350.1.13.10 i ty of [facility] 4.2.7.2.686 [facility] [id number] [address] 2023-01-29 2023-01-29 Emergency X [facility] ERT [id number] Univers 08:08:00 10:00:00 HERMINIA judge [facility] 2023-01-29 2023-01-29 Emergency [facility] [id number] Univers 08:08:00 10:00:00 Herminia BRAEDEN [id number] i ty of [facility] 4.2.7.2.686 [facility] [id number] [address] 2023-01-27 2023-01-27 Emergency X D[facility]KALBUQU[facility] ERT [id number] Univers 04:50:00 07:03:00 BESSIE judge [facility] 2023-01-27 2023-01-27 Emergency [facility] [id number] Univers 04:50:00 07:03:00 Bessie DERAS 350.1.13.10 i ty of [facility] 4.2.7.2.686 [facility] [id number] [address] 2023-01-27 2023-01-27 Telephone [facility] [id number] Univers 00:00:00 00:00:00 Nomi DERAS [id number] i ty of [facility] 4.2.7.2.6 [facility] PROFESSIO [id number] Co dical [address] 2023-01-24 2023-01-24 Emergency X GAGE [facility] ERT [id number] Univers 12:28:00 16:16:00 STEPHANIE tieradeepa [facility] 2023-01-24 2023-01-24 [facility] [id number] Univers 12:28:00 16:16:00 Stephanie DERAS 350.1.13.10 i ty of [place] [facility] 4.2.7.[address] [place] [id number] 2023-01-23 2023-01-23 Emergency X [facility] ERT [id number] Univers 19:02:00 20:36:00 IZA [facility] 2023-01-23 2023-01-23 Emergency [facility] [id number] Univers 19:02:00 20:36:00 Iza DERAS 350.1.13.10 i ty of [facility] 4.2.7.2.6 [facility] [id number] [address] 2023-01-22 2023-01-22 Emergency X [facility] ERT [id number] Univers 18:24:00 19:55:[address] [facility] 2023-01-22 2023-01-22 Emergency [facility] [id number] Univers 18:24:00 19:55:00 Iza DERAS [id number] i ty of [facility] 4.2.7.2.[address] [place] [address] [id number] [facility] 084 Branch 2023-01-21 2023-01-21 Emergency X , [facility] [facility] ERT [id number] Univers 14:20:00 18:14:00 LOUIS ity [facility] 2023-01-21 2023-01-21 Emergency [facility] 1.2.983.039 [id number] Univers 14:20:00 18:14:00 Louis DERAS 350.1.13.10 i ty of [place] 4.2.7.2.686 [facility] [phone] [facility] 084 Branch 2023-01-20 2023-01-20 Transition FryeGARY 1.2.840.114 [id number] Univers 00:00:00 00:00:00 of Mack SHAIKH 350.1.13.10 it y of [place] 4.2.7.2.686 [facility] [phone] [facility] 403 Branch 2023-01-19 2023-01-19 [facility] 1.2.84 0.114 [id number] Univers 01:15:00 19:40:00 Encounter Iza Varma 350.1.13.10 ity of Agapito Hackett 4.2.7.2.686 [facility] [phone] [place] 875230 Branch 2023-01-17 2023-01-17 Emergency X [facility] ERT [id number] Univers 05:57:00 07:37:00 MARISOL judge [facility] 2023-01-17 2023-01-17 [facility] 1.2.341.862 [id number] Univers 05:57:00 07:37:00 Marisol DERAS 350.1.13.10 ity of [place] 4.2.7.2.[address] [place] [phone] 2023-01-17 2023-01-17 Emergency X [facility] ERT [id number] Univers 05:57:00 07:37:00 MARISOL judge [facility] 2023-01-10 2023-01-10 Letter [facility] 1.2.840.114 [id number] Univers 00:00:00 00:00:00 (Out) Herminia [facility] 350.1.13.10 it y of [place] 4.2.7.2.686 Nelson as JACKIE?BLEA [phone] [address] OFFICE [facility] 2023-01-07 2023-01-07 [facility]patient [facility] [id number] Univers 14:30:00 15:25:56 HERMINIA ity of [facility] 2023-01-07 2023-01-07 Office [facility] 1.2.840.114 [id number] Univers 14:30:00 15:25:56 Visit Herminia [facility] 350.1.13.10 it y of [place] 4.2.7.2.686 Nelson as JACKIE?BLEA [phone] [address] OFFICE [facility] 2022-12-26 2022-12-26 Emergency X AVANI [facility] ERT [id number] Univers 10:50:00 14:12:00 IZA ity of [facility] 2022-12-26 2022-12-26 Emergency [facility] 1.2.221.514 [id number] Univers 10:50:00 14:12:00 Iza S BRAEDEN 350.1.13.10 i ty of [place].2.[place] [phone] [facility] [address] [place] 2022-12-14 2022-12-14 Outpatient R NOMI MARY [facility] 10 [id number] Univers 11:30:00 11:30:00 NOMI MARY i ty of [facility] 2022-12-14 2022-12-14 Transition GARY Frye 1.2.840.114 [id number] Univers 00:00:00 00:00:00 of Care Taylor SHAIKH 350.1.13.10 it y [place].7.2.[place] [phone] [facility] 403 Branch 2022-12-10 2022-12-12 Outpatient X KARRI [facility] [id number] Univers 18:49:00 14:35:00 TRAVIS ity of [facility] 2022-12-10 2022-12-12 Hospital oLuis Hong [facility] 1.2.840.1 14 [id number] Univers 18:49:00 14:35:00 Encounter Dedrick Toth 350.1.13. 10 ity of Travis Zeng 4.2.7.2.686 [facility] [phone] [facility] 081 Branch 2022-12-10 2022-12-10 Case [facility] 1.2.840.114 [id number] Univers 00:00:00 00:00:00 Management Nomi DERAS 350.1.13.10 ity of [facility] 4.2.7.2.[place] [phone] [facility] 085 Branch [facility] 2022-12-10 2022-12-10 Transition AGRY Caro 1.2.840.114 [id number] Univers 00:00:00 00:00:00 of Care Cecy SHAIKH 350.1.13.10 [place].2.[place] [phone] [facility] 403 Branch 2022-12-09 2022-12-09 Orders Doctor ELDER 1.2.840.114 [id number] Univers 00:00:00 00:00:00 Only Unassigned, SAHER 350.1.13.10 ity of [place] [facility] 4.2.7.2.686 Nelson as [phone] [facility] 009 Branch 2022-12-06 2022-12-06 Transition GARY Frye 1.2.840.114 [id number] Univers 00:00:00 00:00:00 of Care Taylor B SHAIKH 350.1.13.10 it y [place] [phone] [facility] 403 [address] 2022-12-02 2022-12-04 [facility] PinonCarlo miranda [facility] 1.2.8 40.114 [id number] Univers 00:13:00 12:30:00 Encounter Beny Abi [facility] 350.1.13.10 ity of Clive Contreras 4.2.7.2.686 [facility] [phone] [facility] 110 Branch (CLC) 2022-12-01 2022-12-01 Emergency U ERNESTO PIPER [facility] ERT [id number] Univers 05:32:00 09:08:00 ERNESTO PIPER [facility] 2022-12-01 2022-12-01 Emergency Marisol Devlin [facility] 1.2.840 .114 [id number] Univers 05:32:00 09:08:00 Ernesto Piper BRAEDEN 350.1.13.10 ity of Krissy Powers 4.2.7.2.686 [facility] [phone] [address] 2022-12-01 2022-12-01 Emergency U ERNESTO PIPER [facility] ERT [id number] Univers 05:32:00 09:08:00 ERNESTO PIPER [facility] 2022-11-26 2022-11-28 Outpatient X DHARMESH [facility] [id number] Univers 22:55:00 13:50:00 LEILA [facility] 2022-11-26 2022-11-28 [facility] Bessie Oswald [facility] 1.2.840.11 4 [id number] Univers 22:55:00 13:50:00 Encounter María Diaz 350.1.13.10 ity of Leila Chapa 4.2.7.2.686 [facility] [phone] [place] [address] Branch 2022-11-19 2022-11-19 Emergency X AVANI [facility] ERT [id number] Univers 02:17:00 05:12:00 IZA [facility] 2022-11-19 2022-11-19 Emergency [facility] 1.2.244.445 [id number] Univers 02:17:00 05:12:00 Iza DERAS 350.1.13.10 i ty of [place] 4.2.7.2.686 [facility] [id number] [place] [address] Branch 2022-11-18 2022-11-18 Emergency X [facility] [id number] Univers 18:52:00 20:29:00 FRANCISCA ity of [facility] 2022-11-18 2022-11-18 Emergency [facility] 1.2.840.114 10 [id number] Univers 18:52:00 20:29:00 Francisca DERAS 350.1.13.10 ity of [place].2.7.2.[place] [phone] [facility] 084 Branch 2022-11-17 2022-11-17 Telephone [facility] 1.2.439.683 [id number] Univers 00:00:00 00:00:00 Nomi DERAS 350.1.13.10 i ty of [facility] 4.2.7.2.[place] [phone] Co dical NAL 085 [facility] 2022-11-12 2022-11-12 Transition GARY Frye 1.2.840.114 [id number] Univers 00:00:00 00:00:00 of Care Taylor SHAIKH 350.1.13.10 it y [place] [phone] [facility] 403 Branch 2022-11-09 2022-11-11 Inpatient X KARRI [facility] PARRISH [id number] Univers 01:32:00 13:35:00 TRAVIS itdeepa of [facility] 2022-11-09 2022-11-11 [facility] Marisol Devlin [facility] 1.2.840. 114 [id number] Univers 01:32:00 13:35:00 Encounter Travis Zeng 350.1.13.10 ity of [facility] 4.2.7.2.[place] [phone] [facility] 081 Branch 2021-05-22 2021-05-22 Telephone [facility] 1.2.549.566 [id number] Univers 00:00:00 00:00:00 Jeanette Deras 350.1.13.10 ity of [place] [phone] Me dical nal 204 [facility] 2021-05-20 2021-05-20 Butt Maker Anshu Macedo Lab Main [facility] 1.2.8 40.114 [id number] Univers 14:28:38 14:43:38 Visit Gokul Turner 350.1.13.10 it[place] of [place].2.[place] [phone] [facility] 353 [facility] 2021-05-20 2021-05-20 [facility] [id number] Univers 14:30:00 14:30:00 GOKUL ity [facility] 2021-05-20 2021-05-20 Orders Doctor ELDER 1.2.840.114 [id number] Univers 00:00:00 00:00:00 Only Unassigned, ASHER 350.1.13.10 ity of [place] [facility] 4.2.7.2.686 [place] as [phone] [address] 2021-05-20 2021-05-20 Telephone Yue [facility] 1.2.840.114 [id number] Univers 00:00:00 00:00:00 [facility]ly [facility] 350.1.13.10 i ty of [place].2.[place] [phone] [facility] 204 [facility] 2020-12-29 2020-12-29 Office [facility] 1.2.840.114 [id number] Univers 10:12:45 11:07:51 Visit Gokul Deras 350.1.13.10 i ty of [place].2.[place] [phone] [facility] 204 [facility] 2020-12-29 2020-12-29 Outpatient R [facility] [id number] Univers 10:15:00 10:15:[address] [facility] 2020-12-18 2020-12-18 Office Yue [facility] 1.2.840.114 [id number] Univers 13:36:17 14:58:35 Visit Mahesh, Anshu Surg Spec Procedure Metcalf 3 50.1.13.10 ity of [place].2.[place] [phone] [address] 2020-12-18 2020-12-18 Outpatient R YUE [facility] [id number] Univers 14:00:00 14:00:00 GOKUL ity [facility] 2020-12-16 2020-12-16 Outpatient [facility] [id number] Univers 00:00:00 00:00:[address] [facility] 2020-12-16 2020-12-16 Telephone [facility] 1.2.652.883 [id number] Univers 00:00:00 00:00:00 Jeanette Deras 350.1.13.10 ity of [place].2.[place] [phone] [address] 2020-12-12 2020-12-12 Emergency [facility] 1.2.840.114 [id number] Univers 11:36:00 13:42:00 Francisca Deras 350.1.13.10 ity of [place].2.7.2.[place] [phone] [address] 2020-12-12 2020-12-12 Telephone [facility] 1.2.341.867 [id number] Univers 00:00:00 00:00:00 Jeanette Deras 350.1.13.10 ity of [place].2.[place] [phone] [address] 2020-12-08 2020-12-08 Office [facility] 1.2.840.114 [id number] Univers 13:28:10 14:09:14 Visit Jeanette Deras 350.1.13.10 ity of [place].2.[place] [phone] [address] 2020-12-08 2020-12-08 Outpatient R [facility] [id number] Univers 13:30:00 13:30:00 JEANETTE judge [facility] 2020-12-08 2020-12-08 Orders Doctor ELDER 1.2.840.114 [id number] Univers 00:00:00 00:00:00 Only Unassigned, ASHER 350.1.13.10 ity of [place] [facility] 4.2.7.2.686 Nelson as [phone] [facility] [address] [place] 2020-12-07 2020-12-07 Nurse ELDER Perez 1.2.840.114 [id number] Univers 00:00:00 00:00:00 Triage Herminia STERLING 350.1.13.10 ity of HOSPITAL 4.2.7.2.686 [place] as [phone] [facility] [address] [place] 2020-06-19 2020-06-19 Outpatient Linda, HCAWU SURG [id number] [facility] 13:30:00 13:30:[address] 2020-02-20 2020-02-20 Orders Doctor ELDER Addison.2.840.114 [id number] 00:00:00 00:00:00 Only Unassigned, ASHER 350.1.13.10 [place] [facility] 4.2.7.2.686 [phone] 009 2020-02-20 2020-02-20 Orders Doctor ELDER Addison.2.840.114 [id number] Univers 00:00:00 00:00:00 Only Unassigned, ASHER 350.1.13.10 ity of [place] [facility] 4.2.7.2.686 Nelson as [phone] [address] 2019-08-28 2019-08-28 Emergency X MARQUIS [facility] ERT [id number] Univers 08:25:33 11:54:00 HERMINIA judge [facility] 2019-08-24 2019-08-24 Emergency X SINGER [facility] ERT [id number] Univers 01:43:17 03:52:00 LOUIS alfie [facility] 2019-05-03 2019-05-04 Emergency Huang [facility] 1.2.043.418 [id number] 23:28:18 00:27:00 Ramesh Deras 350.1.13.10 [place] 4.2.7.2.686 [place] [id number] [id number] 2019-05-03 2019-05-04 Emergency Huang, [facility] 1.2.582.563 [id number] [facility] 23:28:18 00:27:00 Ramesh Escobarton 350.1.13.10 i ty of [place] 4.2.7.2.686 [facility] [phone] [address] 2019-05-03 2019-05-03 Orders Doctor ELDER 1.2.840.114 [id number] 00:00:00 00:00:00 Only Unassigned, ASHER 350.1.13.10 [place] [facility] 4.2.7.2.686 [id number] 009 2019-05-03 2019-05-03 Orders Doctor ELDER 1.2.840.114 [id number] Univers 00:00:00 00:00:00 Only Unassigned, ASHER 350.1.13.10 ity of [place] [facility] 4.2.7.2.686 [facility] [phone] [address] Results Test Description Test Time Test Comments Results Result Comments Source GLUCOSE BEDSIDE TESTING 2023-03-19 11:23:00 Test Item Value Reference Range Interpretation Comme nts GLUCOSE BEDSIDE TESTING (test code = GLUBED) 112 MG/DL 60-99 H GLUCOSE BEDSIDE [id number] 07:35:00 Test Item Value Reference Range Interpretation Comments GLUCOSE BEDSIDE TESTING (test code 170 MG/DL 60-99 H = GLUBED) VITAMIN [id number] 15:12:00 Test Item Value Reference Range Interpretation Comments VITAMIN B12 (test code = VITB12) 738 pg/mL 239-931 N FOLIC [id number] 15:12:00 Test Item Value Reference Range Interpretation Comments FOLIC ACID (test 4.9 ng/mL REFERENCE V ALUES: code = FOLR) NORMAL: 2.76 - >20 ng/ML DEFICIENT: 1.04 - 2.79 ng/ML COMPREHENSIVE METABOLIC [id number] 11:38:00 Test Item Value Reference Range Interpretation Comments SODIUM (test code 133 MMOL/L 137-145 L = NA) POTASSIUM (test 3.4 MMOL/L 3.5-5.1 L code = K) CHLORIDE (test 89 MMOL/L 98-107 L code = CL) CARBON DIOXIDE 37 MMOL/L 22-30 H (test code = CO2) GLUCOSE (test 139 MG/DL 74-106 H code = GLU) BLOOD UREA 16 MG/DL 9-20 N NITROGEN (test code = BUN) GLOMERULAR > 60 The Glomerular Filtration FILTRATION RATE Rate is a ca lculated (test code = GFR) parameterb ased on serum Creatinine, pat ient age and sex. GFR values less than 60 mL/min/1.73 squ are meters are indicative ofChronic Kidney Disease. Values less than 15 mL/min/ 1.73square meters indicate Kidney failure. The ca lculation forGFR is based on the CKD-EPI (2020) calculation. This formulais race indifferent and is the recommended for keon for GFRby the [facility] Kidney Foundation for Adults.The GFR will not ca lculate if the sex is unkn own or if thepatient's ag e is <18 years. CREATININE (test 0.60 MG/DL 0.66-1.25 L code = CREAT) TOTAL PROTEIN 5.1 G/DL 6.2-7.6 L [facility] Clinical Diagnostic (test code = has made us viri re of PROT) newinformation regarding the potential i nterference ofEltrombopag ( a bone marrow stimulan t used to treatthrombocyt onmenia and aplastic anemia ) with specific assays on the Vitros 5600 of which Total Protein is one of thoseassays per formed in our lab.Interfe rence testing perform ed at Ortho determined that Eltrombopag does interfere with Vitros Total Protein asfollowsEltrom bopag Interference fo r Vitros Product Total Protein:======= Eltrombopag Max Observed Av g. BiasConcentrati on Concentration Concentration== ==== 2.5 mg/dl 6.0 g/dl +0.41 +0.34 3.5 mg/dl 6.0 g /dl +0.50 +0.45 5 mg/dl 6 .0 g/dl +0.73 +0.65 2.5 mg/dl 8.0 g/dl +0.44 +0.4 1 3.5 mg/dl 8.0 g/dl +0.55 +0.52 5 mg/dl 8.0 g/dl +0.86 +0.77 ALBUMIN (test 3.0 G/DL 3.5-5.0 L code = ALB) CALCIUM (test 7.8 MG/DL 8.4-10.2 L code = CA) BILIRUBIN TOTAL 0.4 MG/DL 0.2-1.3 N Eltrombopag Interference (test code = for Vitros Prod uct TBil, BILT) BuBc: Assa y Eltrombopag Josselin lyte/ Max Observed Avg. B ias Concentration C oncentration Concentration== ====TBil 7mg/dl TBil/ 1. 2mg/dl +0.23mg.dl +0.2 0mg/dlBuBc 3.5mg/dl Bu/0. 8mg/dl +0.25mg/dl +0.2 4mg/dlBuBc 7 mg/dl Bu/14.2mg /dl +0.38mg/dl +0.2 5mg/dlBuBc 5mg/dl Bc/0mg/d l +0.25mg/dl +0.15mg/dlBuBc 3.5mg/dl Bc/2.8mg/dl +0 .25mg/dl +0.23mg/dl SGOT/AST (test 8 UNITS/L 17-59 L code = AST) SGPT/ALT (test 10 UNITS/L 0-49 N code = ALT) ALKALINE 51 UNITS/L 38-126 N PHOSPHATASE (test code = ALKP) CBC W/AUTO [id number] 11:24:00 Test Item Value Reference Range Interpretation Comments WHITE BLOOD CELL (test code = 10.1 K/MM3 3.8-9.8 H WBC) RED BLOOD CELL (test code = 3.53 M/MM3 3.95-5.67 L RBC) HEMOGLOBIN (test code = HGB) 11.4 G/DL 12.4-16.7 L HEMATOCRIT (test code = HCT) 35.5 % 35.9-49.5 L MEAN CELL VOLUME (test code = 101 fL 81.7-96.1 H MCV) MEAN CELL HGB (test code = MCH) 32.3 pg 27.6-33.2 N MEAN CELL HGB CONCETRATION 32.1 % 32.9-35.5 L (test code = MCHC) RED CELL DISTRIBUTION WIDTH 12.5 % 12.1-15.2 N (test code = RDW) PLATELET COUNT (test code = 178 K/MM3 129-368 N PLT) MEAN PLATELET VOLUME (test code 11.7 fl 7.4-10.4 H = MPV) NEUTROPHIL % (test code = NT%) 92.4 % 43-75 H IMMATURE GRANULOCYTE % (test 0.3 % 0.0-2.0 N code = IG%) LYMPHOCYTE % (test code = LY%) 3.3 % 14-44 L MONOCYTE % (test code = MO%) 3.9 % 4-13 L EOSINOPHIL % (test code = EO%) 0.0 % 0-6 N BASOPHIL % (test code = BA%) 0.1 % 0-2 N NUCLEATED RBC % (test code = 0.0 % 0-1.0 N NRBC%) NEUTROPHIL # (test code = NT#) 9.37 K/mm3 2.0-7.6 H IMMATURE GRANULOCYTE # (test 0.03 x10 3/uL 0-0.03 N code = IG#) LYMPHOCYTE # (test code = LY#) 0.33 K/mm3 1.0-3.8 L MONOCYTE # (test code = MO#) 0.40 K/mm3 0.1-0.8 N EOSINOPHIL # (test code = EO#) 0.00 K/mm3 0.0-0.2 N BASOPHIL # (test code = BA#) 0.01 K/mm3 0.0-0.2 N NUCLEATED RBC # (test code = 0.00 K/mm3 0.0-0.1 N NRBC#) ARTERIAL BLOOD [id number] 17:25:00 Test Item Value Reference Range Interpretation Comments ARTERIAL BLOOD GAS PH 7.44 mmHg 7.35-7.45 N (test code = PHA) ARTERIAL BLOOD GAS 50.6 mmHg 35.0-45.0 HH PCO2 (test code = PCO2A) ARTERIAL BLOOD GAS 52.9 mmol/L 80.0-100.0 L PO2 (test code = PO2A) BICARBONATE TOTAL 33.2 mmol/L 20.0-26.0 H HCO3 (test code = HCO3) BASE EXCESS (test 7.5 mmol/L -3.0-3.0 H code = JIMMY) ABG O2 SATURATION 88.0 % 95.0-100.0 L All critic al values (test code = SATA) report to and readback by MAC FRANCOIS, PA by LANGO at 03/15/2023 4:56: 13 PM ABG DELIVERY (test N/C code = MARY) ABG TEMPERATURE (test 37.0 C See_Comment [Auto mated message] code = TEMPA) The system [employer] generated this result transmitted ref erence range: 37. The reference range was not used to int erpret this result as normal/abnormal . ABG SITE (test code = LR SITEA) ALLENS TEST (test Y CHECK code = ALLENS) FIO2 (test code = 36 % COHBGFFIO2) [id number] 12:29:00 Test Item Value Reference Range Interpretation Comments PHOSPHOROUS (test code = PHOS) 3.5 MG/DL 2.5-4.5 N ADD ON TEST? [id number] 12:29:00 Test Item Value Reference Range Interpretation Comments MAGNESIUM (test code = MAG) 1.8 MG/DL 1.6-2.3 N ADD ON TEST? YesARTERIAL BLOOD [id number] 12:26:00 Test Item Value Reference Range Interpretation Comments ARTERIAL BLOOD GAS PH 7.27 mmHg 7.35-7.45 L (test code = PHA) ARTERIAL BLOOD GAS PCO2 79.0 mmHg 35.0-45.0 HH (test code = PCO2A) ARTERIAL BLOOD GAS PO2 106.2 mmol/L 80.0-100.0 H (test code = PO2A) BICARBONATE TOTAL HCO3 35.4 mmol/L 20.0-26.0 H (test code = HCO3) BASE EXCESS (test code = 5.8 mmol/L -3.0-3.0 H JIMMY) ABG O2 SATURATION (test 96.9 % 95.0-100.0 N All critical code = SATA) values report t o and readback by DR KELLI GARCIA by [email or web address] at 03/15/2023 12:12 :31 PM ABG DELIVERY (test code BIPAP = MARY) ABG VENT RESP RATE (test 14.0 /MIN code = RRA) ABG PEEP (test code = 5.0 cmH2O PEEPA) ABG PRESSURE SUPPORT 12 cmH2O (test code = PSABG) ABG TEMPERATURE (test 37.0 C See_Comment [Auto mated code = TEMPA) message] The system which generated this result transmit anirudh reference range : 37. The referen ce range was not u sed to interpret th is result as normal/abnormal . ABG SITE (test code = LR SITEA) ALLENS TEST (test code = Y CHECK ALLENS) FIO2 (test code = 50 % COHBGFFIO2) TOTAL HGB (test code = 13.0 g/L 12.0-16.0 N THB) HGB O2 SAT (test code = 94.0 % 95-100 L HBOSAT) CARBOXYHEMOGLOBIN (test 3.6 % 0.5-1.5 HH code = HOHGBT) METHEMOGLOBIN (test code 0.2 % 0.4-1.5 L = METHGB) VENOUS BLOOD [id number] 11:46:00 Test Item Value Reference Range Interpretation Comments VENOUS BLOOD GAS PH (test 7.21 7.35-7.45 L code = PHV) VENOUS BLOOD GAS PCO2 93.7 mmHg 35.0-45.0 HH (test code = PCO2V) VENOUS BLOOD GAS PO2 38 mmHg See_Comment [Autom ated (test code = PO2V) message] The system which generated this result transmit anirudh reference range : -40. The refere nce range was not u sed to interpret th is result as normal/abnormal . VBG HCO3 (test code = 37 meq/L 20-26 H HCO3V) VBG BASE EXCESS (test 4.8 MMOL/L -3.0-3.0 H code = PIERRE) VENOUS BLOOD GAS OS SAT. 57 % 72-77 L (test code = O2SATV) FIO2 (test code = FIO2) 21 % VENOUS BLOOD GAS DELIVERY RM AIR (test code = DELV) VENOUS BLOOD GAS TEMP 37.0 C (test code = TEMPV) VENOUS BLOOD GAS SITE UNKNOWN (test code = SITEV) TOTAL HGB (test code = 15.1 g/L 12.0-16.0 N THB) HGB O2 SAT (test code = 63.9 % 95-100 LL HBOSAT) CARBOXYHEMOGLOBIN (test 6.2 % 0.5-1.5 HH code = HOHGBT) METHEMOGLOBIN (test code 0.0 % 0.4-1.5 L = METHGB) BASIC METABOLIC [id number] 07:06:00 Test Item Value Reference Range Interpretation Comments SODIUM (test code = 128 MMOL/L 137-145 L NA) POTASSIUM (test code 5.4 MMOL/L 3.5-5.1 H = K) CHLORIDE (test code 90 MMOL/L 98-107 L = CL) CARBON DIOXIDE (test 36 MMOL/L 22-30 H code = CO2) ANION GAP (test code 7 MMOL/L 14-24 L = GAP) GLUCOSE (test code = 109 MG/DL 74-106 H GLU) BLOOD UREA NITROGEN 17 MG/DL 9-20 N (test code = BUN) GLOMERULAR > 60 The Glomerular FILTRATION RATE Filtration R ate is a (test code = GFR) calculated parameterbased on serum Creatinine, pat ient age and sex. GFR va luesless than 60 mL/min/ 1.73 square meters a re indicative ofCh ronic Kidney Disease. Values less than 15 mL/min/1.73squa re meters indicate Kidney failure. The calculation for GFR is based on the CK D-EPI (2020) calculat ion. This formulais race indifferent and is the recommended for keon for GFRby the [facility] n[facility] Kidney Found[facility] on for Adults.The GFR will not calculate if th e sex is unknown or if thepatient's ag e is <18 years. CREATININE (test 0.70 MG/DL 0.66-1.25 N code = CREAT) CALCIUM (test code = 7.7 MG/DL 8.4-10.2 L CA) NT PRO-BRAIN NATRIURETIC [id number] 07:06:00 Test Item Value Reference Range Interpretation Comments NT PRO-BRAIN 79.0 pg/mL INTERPRETATION OF NATRIURETIC PEPTI RESULTS Re sults of this (test code = PROBNP) test sh ould be used in accordance with the appropriate cli nical guidelines and in conjunction wit h clinical presen tation and other diagn ostic tests. Clinical guidelines sangeeta mmend using natriuret ic peptides in bot h Emergency Depar tment (ED) and outpat ient settings for di agnosis or exclusion of heart failure (HF). Shelby leger performance of the VITROS NT-proBN P II test was evalua anirudh separately in e ach of these settings using published age-independent and age-dependent c utoffs. EMERGENCY DEPAR TMENT SETTINGS/INPATI ENT: For patients presen ting to the ED settings with acute or worsen ing dyspnea and cli nical suspicion of HF , the VITROS NT-proBN P II test results sh ould be interpreted as indicated in th e table below. ======== ======== N T-proBNP II Test Age Swati up Interpretation of Results Results (pg/mL) ======== ======== < 300 All Negative: Heart Failure Unlikely------- -------- -------- -------> =300 to <450 22 -<50 [place] Zone: Resu lt >=300 to <900 50-<75 Indeterminate > =300 to <1800 >=75 - Co nsider other causes of NT-proBNP eleva tion -------- -------- --------------> =450 22-<50 >=900 50 -<75 Positive: Heart Failure likely >=1800 > =75 -------- -------- O UTPATIEN T SETTINGS: In the outpatient sett ings, the optimal use of natriuretic pep tides is to exclude HF. Therefore, a lo wer rule-out cutoff which increases sensi tivity and negative pr edictive value is needed , as patients can pr esent with limited, l ess acute HF sympto ms. For ambulatory lusi ents presenting to outpatient faci lities with clinical s uspicion of HF not previ ously diagnosed and a t least one sign, sympt om or risk factor for HF, the VITROSNT-proBNP II test results should be interpreted as indicatedin the table below. ======== ======== N T-proBNP II Test Age Swati up Interpretation of Results Results (pg/mL) ======== ======== < 125 All Negative: Heart Failure Unlikely -------- -------- --------------> =125 All Consider Heart Failure as well as othe r causes* of NT-p roBNP elevation. -------- -------- [id number] 07:06:00 Test Item Value Reference Range Interpretation Comments TROPONIN-I (test code = TROPI) < 0.012 NG/ML 0.012-0.033 L - XR CHEST [id number] 06:59:00 [facility] 1960 Sex: M Patient Name: JUAN C MONGE Unit No: [id number] EXAMS: CPT CODE: [id number] XR CHEST 1V [id number] EXAMINATION: - XR CHEST 1V HISTORY: Chest pain COMPARISON: Chest x-ray performed June 19, 2020 LOCATION CODE: C3 FINDINGS: Single frontal view of the chest is submitted for evaluation. The lungs are hyperexpanded but clear. The cardiac silhouette, mediastinum and pulmonary vasculature are unremarkable. The regional osseous structures are intact. Implanted cardiac device in the left chest wall is unchanged IMPRESSION:No acute radiographic abnormality at 0659 Reported and signed by: Miroslava Cote MD CC: Melina Gannon DO Technologist: Alex Vinson (RT) Transcrpt Date/Tm/Trnsp: 03/15/2023 (0659) [id number] Orig Print D/T: S: 03/15/2023 (0702) [facility] NAME: JUAN C MONGE [id number] [address] PHYS: [place] [address] : 1960 AGE: 62 SEX: M LOC: RUCHI PHONE #: [phone] EXAM DATE: 03/15/2023 STATUS: REG ER FAX #: [phone] RADIOLOGY NO: PAGE 1 Signed ReportCBC W/O [id number] 06:42:00 Test Item Value Reference Range Interpretation Comments WHITE BLOOD CELL (test code = 7.4 K/MM3 3.8-9.8 N WBC) RED BLOOD CELL (test code = 3.53 M/MM3 3.95-5.67 L RBC) HEMOGLOBIN (test code = HGB) 11.5 G/DL 12.4-16.7 L HEMATOCRIT (test code = HCT) 35.8 % 35.9-49.5 L MEAN CELL VOLUME (test code = 101 fL 81.7-96.1 H MCV) MEAN CELL HGB (test code = MCH) 32.6 pg 27.6-33.2 N MEAN CELL HGB CONCETRATION 32.1 % 32.9-35.5 L (test code = MCHC) RED CELL DISTRIBUTION WIDTH 12.4 % 12.1-15.2 N (test code = RDW) PLATELET COUNT (test code = 174 K/MM3 129-368 N PLT) NEUTROPHIL # (test code = NT#) 6.76 K/mm3 2.0-7.6 N IMMATURE GRANULOCYTE # (test 0.02 x10 3/uL 0-0.03 N code = IG#) LYMPHOCYTE # (test code = LY#) 0.51 K/mm3 1.0-3.8 L MONOCYTE # (test code = MO#) 0.10 K/mm3 0.1-0.8 N EOSINOPHIL # (test code = EO#) 0.00 K/mm3 0.0-0.2 N BASOPHIL # (test code = BA#) 0.01 K/mm3 0.0-0.2 N NUCLEATED RBC # (test code = 0.00 K/mm3 0.0-0.1 N NRBC#) TROPONIN [id number] 21:12:01 Test Item Value Reference Range Interpretation Comments TROPONIN I (test code = <=0.034 5198796301) OMAYRA (test code = OMAYRA) Reference (Normal) [...] biotin. Lab Interpretation Normal (test code = 48344-9) [facility]. METABOLIC PANEL ([id number])2023-02-15 21:00:57 Test Item Value Reference Range Interpretation Comments NA (test code = 133 mmol/L 135-145 L 4312971037) K (test code = 4.5 mmol/L 3.5-5.0 7200501743) CL (test code = 90 mmol/L 98-108 L 6871963648) CO2 TOTAL (test code = 40 mmol/L 23-31 H 2626884581) AGAP (test code = 3 2-16 7738059558) BUN (test code = 25 mg/dL 7-23 H 5302557055) GLUCOSE (test code = 107 mg/dL 70-110 0267614249) CREATININE (test code = 0.88 mg/dL 0.60-1.25 7450601047) TOTAL BILI (test code = 1.6 mg/dL 0.1-1.1 H 6936119363) CALCIUM (test code = 8.9 mg/dL 8.6-10.6 1742904287) T PROTEIN (test code = 6.1 g/dL 6.3-8.2 L 2315991442) ALBUMIN (test code = 3.7 g/dL 3.5-5.0 1270527221) ALK PHOS (test code = 56 U/L 34-122 2372200044) ALTv (test code = 14 U/L 5-50 1742-6) AST(SGOT) (test code = 12 U/L 13-40 L 2594954392) eGFR (test code = 87.2 mL/min/1.73m2 4484991130) OMAYRA (test code = OMAYRA) Association of [...] tests). Lab Interpretation Abnormal (test code = 79567-6) [facility]:57 Test Item Value Reference Range Interpretation Comments MAGNESIUM (test code = 5805814317) 2.0 mg/dL 1.7-2.4 Lab Interpretation (test code = Normal 91154-1) [facility] WITH [id number] 20:53:39 Test Item Value Reference Range Interpretation Comments WBC (test code = 9.03 See_Comment [Automated 4690-2) message] The sy stem which generated this [...] RDW-SD (test code = 50.1 fL 38.5-51.6 86626-9) RDW-CV (test code = 13.6 % 12.1-15.4 788-0) PLT (test code = 223 See_Comment [Automated 777-3) message] The sy stem which generated this result transmitted reference range : 150 - 328 10*3/ ?L. The reference r pasquale was not used to interpret this result as normal/abnormal . MPV (test code = 12.1 fL 9.8-13.0 99001-7) NRBC/100 WBC (test 0.0 See_Comment [Automat ed code = 6992532594) message] The system which generated this result transmitted reference range : 0.0 - 10.0 /100 WBCs. The refer ence range was not u sed to interpret th is result as normal/abnormal . NRBC x10^3 (test code See_Comment [Auto mated = 7528906014) message] The s ystem which generated this result transmitted reference range : 10*3/?L. The reference range was not used to interpret this result as normal/abnormal . GRAN MAT (NEUT) % 72.8 % (test code = 770-8) IMM GRAN % (test code 0.90 % = 3902706754) LYMPH % (test code = 17.7 % 736-9) MONO % (test code = 7.4 % 5905-5) EOS % (test code = 0.9 % 713-8) BASO % (test code = 0.3 % 706-2) GRAN MAT x10^3(ANC) 6.57 10*3/uL 1.99-6.95 (test code = 9836400179) IMM GRAN x10^3 (test 0.08 10*3/uL 0.00-0.06 H code = 7526701496) LYMPH x10^3 (test code 1.60 10*3/uL 1.09-3.23 = 731-0) MONO x10^3 (test code 0.67 10*3/uL 0.36-1.02 = 742-7) EOS x10^3 (test code = 0.08 10*3/uL 0.06-0.53 711-2) BASO x10^3 (test code 0.03 10*3/uL 0.01-0.09 = 704-7) Lab Interpretation Abnormal (test code = 26652-1) [facility] + LACTIC [id number] 20:11:20 Test Item Value Reference Range Interpretation Comments PH (test code = 7.33 7.32-7.42 5238039989) PCO2 ERVIN (test code = 75 See_Comment H [Auto mated 2156459095) message] The sy stem which generated this result transmitted reference range : 41 - 51 mmHg. The reference range was not used to interpret this result as normal/abnormal . PO2 ERVIN (test code = 20 See_Comment L [Autom ated 0418638957) message] The sy stem which generated this result transmitted reference range : 25 - 40 mmHg. The reference range was not used to interpret this result as normal/abnormal . HCO3 ERVIN (test code = 39 See_Comment H [Auto mated 0080069343) message] The sy stem which generated this result transmitted reference range : 24 - 28 mEq/L. The reference range was not used to interpret this result as normal/abnormal . AC VBE(BEAKER) (test 9.1 mEq/L code = 3732067700) THB ERVIN (test code = 15.9 g/dL 13.5-18.0 6880797967) %O2HB ERVIN (test code = 30.0 % 52.0-63.0 L 7239236383) %COHB ERVIN (test code = 4.1 % 0.0-1.5 H 4011735509) %METHB ERVIN (test code = 0.3 % 0.4-1.5 L 7240655183) VOL%O2 ERVIN (test code = 6.7 % 6.0-12.0 9175848249) NA (test code = 137 mmol/L 135-145 2360155285) K+ (test code = 4.5 mmol/L 3.5-5.0 7327740578) AC CA IONZ (test code = 4.60 mg/dL 4.50-5.30 8420077232) GLUCOSE (test code = 113 mg/dL 70-110 H 7914107595) LACTIC ACID (test code 1.65 mmol/L 0.50-2.20 = 5249236230) Lab Interpretation Abnormal (test code = 67669-4) [facility] [id number] 21:20:05 Test Item Value Reference Range Interpretation Comments TROPONIN I (test code = 0.005 ng/mL <=0.034 6021731961) OMAYRA (test code = OMAYRA) Reference (Normal) [...] biotin. Lab Interpretation Normal (test code = 65628-7) [facility] [id number] 21:17:24 Test Item Value Reference Range Interpretation Comments NT-proBNP (test code = 712 pg/mL <=125 H 5988725693) OMAYRA (test code = OMAYRA) Biotin has been reported to cause a negative bias, interpret results relative to patient's use of biotin. Lab Interpretation (test Abnormal code = 92063-3) [facility]2023-[facility]-15 21:13:47 ALCOHOL<10mg/dL01/31/2023 4:13 PM [facility]<10 Enjtyhqa67-311 Toxic>100 Depression of SKILL TRAINING 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>400 [facility]. METABOLIC PANEL (86165) 2023-01-31 21:10:01 Test Item Value Reference Range Interpretation Comments NA (test code = 142 mmol/L 135-145 3186764367) K (test code = 4.7 mmol/L 3.5-5.0 9038205242) CL (test code = 99 mmol/L 98-108 8904696083) CO2 TOTAL (test code = 37 mmol/L 23-31 H 6990373752) AGAP (test code = 6 2-16 3702094902) BUN (test code = 30 mg/dL 7-23 H 5777312644) GLUCOSE (test code = 100 mg/dL 70-110 5441591073) CREATININE (test code = 0.61 mg/dL 0.60-1.25 8933358161) TOTAL BILI (test code = 0.6 mg/dL 0.1-1.4 9707080186) CALCIUM (test code = 8.8 mg/dL 8.6-10.6 9390559471) T PROTEIN (test code = 5.9 g/dL 6.3-8.2 L 3028107885) ALBUMIN (test code = 3.5 g/dL 3.5-5.0 3973761708) ALK PHOS (test code = 42 U/L 34-122 1766750209) ALTv (test code = 16 U/L 5-50 1742-6) AST(SGOT) (test code = 12 U/L 13-40 L 9062307004) eGFR (test code = 133.1 mL/min/1.73m2 0736996682) OMAYRA (test code = OMAYRA) Association of [...] tests). Lab Interpretation Abnormal (test code = 48597-0) [facility] WITH [id number] 20:59:58 Test Item Value Reference Range Interpretation Comments WBC (test code = 13.02 See_Comment H [Automated 6690-2) message] The system which generated this result transmit anirudh reference range : 4.20 - 10.70 10*3/?L. The reference range was not used to interpret this result as normal/abnormal . RBC (test code = 4.09 See_Comment L [Automated 209-8) message] The system which generated this result [...] (test code = 61.6 fL 38.5-51.6 H 28120-2) RDW-CV (test code = 16.2 % 12.1-15.4 H 788-0) PLT (test code = 250 See_Comment [Automated 777-3) message] The system which generated this result transmit anirudh reference range : 150 - 328 10*3/ ?L. The reference range was not u sed to interpret th is result as normal/abnormal . MPV (test code = 10.5 fL 9.8-13.0 05884-6) NRBC/100 WBC (test 0.0 See_Comment [Automat ed code = 4311731364) message] The system which generated this result transmit anirudh reference range : 0.0 - 10.0 /100 WBCs. The reference range was not used to interpret this result as normal/abnormal . NRBC x10^3 (test code See_Comment [Auto mated = 3362389026) message] The system which generated this result transmit anirudh reference range : 10*3/?L. The reference range was not used to interpret this result as normal/abnormal . GRAN MAT (NEUT) % 90.9 % (test code = 770-8) IMM GRAN % (test code 1.20 % = 4774848330) LYMPH % (test code = 3.9 % 736-9) MONO % (test code = 3.8 % 5905-5) EOS % (test code = 0.0 % 713-8) BASO % (test code = 0.2 % 706-2) GRAN MAT x10^3(ANC) 11.83 10*3/uL 1.99-6.95 H (test code = 6093737032) IMM GRAN x10^3 (test 0.16 10*3/uL 0.00-0.06 H code = 1233071541) LYMPH x10^3 (test code 0.51 10*3/uL 1.09-3.23 L = 731-0) MONO x10^3 (test code 0.49 10*3/uL 0.36-1.02 = 742-7) EOS x10^3 (test code = 0.06-0.53 L 711-2) BASO x10^3 (test code 0.03 10*3/uL 0.01-0.09 = 704-7) Lab Interpretation Abnormal (test code = 47062-6) [facility] [id number] 11:16:36 Test Item Value Reference Range Interpretation Comments TROPONIN I (test code = 0.002 ng/mL <=0.034 2632391004) OMAYRA (test code = OMAYRA) Reference (Normal) [...] biotin. Lab Interpretation Normal (test code = 33527-5) [facility] [id number] 11:13:18 Test Item Value Reference Range Interpretation Comments NT-proBNP (test code = 112 pg/mL <=125 3149738803) OMAYRA (test code = OMAYRA) Biotin has been reported to cause a negative bias, interpret results relative to patient's use of biotin. Lab Interpretation (test Normal code = 23327-7) [facility] MET[facility]OLIC PAN[facility] (NA, K, CL, CO2, GLUCOSE, BUN, CREATININE, CA)2023-01-27 11:04:56 Test Item Value Reference Range Interpretation Comments NA (test code = 136 mmol/L 135-145 0709866035) K (test code = 4.1 mmol/L 3.5-5.0 7703411955) CL (test code = 96 mmol/L 98-108 L 8184790381) CO2 TOTAL (test code = 34 mmol/L 23-31 H 0351959432) AGAP (test code = 6 2-16 0383013187) BUN (test code = 22 mg/dL 7-23 6572329713) GLUCOSE (test code = 117 mg/dL 70-110 H 7856830263) CREATININE (test code = 0.55 mg/dL 0.60-1.25 L 7456046094) CALCIUM (test code = 8.4 mg/dL 8.6-10.6 L 4978515367) eGFR (test code = 150.0 mL/min/1.73m2 4268487794) OMAYRA (test code = OMAYRA) Association of [...] tests). Lab Interpretation Abnormal (test code = 38633-8) [facility] WITH [id number] 10:38:33 Test Item Value Reference Range Interpretation Comments WBC (test code = 9.56 See_Comment [Automated 9716-2) message] The sy stem which generated this result transmitted reference range : 4.20 - 10.70 10*3/?L. The reference range was not used to interpret this result as normal/abnormal . RBC (test code = 4.31 See_Comment [Automated 134-7) message] The sy stem which generated this [...] (test code = 56.7 fL 38.5-51.6 H 09099-1) RDW-CV (test code = 15.3 % 12.1-15.4 788-0) PLT (test code = 220 See_Comment [Automated 777-3) message] The sy stem which generated this result transmitted reference range : 150 - 328 10*3/ ?L. The reference r pasquale was not used to interpret this result as normal/abnormal . MPV (test code = 10.6 fL 9.8-13.0 85735-9) NRBC/100 WBC (test 0.0 See_Comment [Automat ed code = 2706321406) message] The system which generated this result transmitted reference range : 0.0 - 10.0 /100 WBCs. The refer ence range was not u sed to interpret th is result as normal/abnormal . NRBC x10^3 (test code See_Comment [Auto mated = 0643799487) message] The s ystem which generated this result transmitted reference range : 10*3/?L. The reference range was not used to interpret this result as normal/abnormal . GRAN MAT (NEUT) % 60.0 % (test code = 770-8) IMM GRAN % (test code 0.70 % = 7538981831) LYMPH % (test code = 26.5 % 736-9) MONO % (test code = 11.4 % 5905-5) EOS % (test code = 0.9 % 713-8) BASO % (test code = 0.5 % 706-2) GRAN MAT x10^3(ANC) 5.73 10*3/uL 1.99-6.95 (test code = 2973476128) IMM GRAN x10^3 (test 0.07 10*3/uL 0.00-0.06 H code = 9989871153) LYMPH x10^3 (test code 2.53 10*3/uL 1.09-3.23 = 731-0) MONO x10^3 (test code 1.09 10*3/uL 0.36-1.02 H = 742-7) EOS x10^3 (test code = 0.09 10*3/uL 0.06-0.53 711-2) BASO x10^3 (test code 0.05 10*3/uL 0.01-0.09 = 704-7) Lab Interpretation Abnormal (test code = 58544-8) [facility], [id number] 18:51:59 Test Item Value Reference Range Interpretation Comments AMMONIA (test code = 6613453613) 9-33 L Lab Interpretation (test code = Abnormal 55356-9) [facility] ABG + LACTIC [id number] 18:40:53 Test Item Value Reference Range Interpretation Comments PH (test code = 2) 7.43 7.35-7.45 PCO2 (test code = 53 See_Comment H [Automate d 8624426541) message] The sy stem which generated this result transmitted reference range : 35 - 45 mmHg. The reference range was not used to interpret this result as normal/abnormal . PO2 (test code = 49 See_Comment L [Automated 9380847032) message] The sy stem which generated this result transmitted reference range : 80 - 100 mmHg. The reference range was not used to interpret this result as normal/abnormal . HCO3 (test code = 34 See_Comment H [Automate d 7053426315) message] The sy stem which generated this result transmitted reference range : 22 - 26 mEq/L. The reference range was not used to interpret this result as normal/abnormal . BE (test code = 7.8 See_Comment H [Automated 3220933117) message] The sy stem which generated this result transmitted reference range : -3.0 - 3.0 mEq/ L. The reference r pasquale was not used to interpret this result as normal/abnormal . LACTIC ACID (test code 0.92 mmol/L 0.50-2.20 = 1577523828) Lab Interpretation Abnormal (test code = 37682-7) [facility]Allen[facility] [id number] 18:28:26 Test Item Value Reference Range Interpretation Comments TROPONIN I (test code = 0.003 ng/mL <=0.034 3896589500) OMAYRA (test code = OMAYRA) Reference (Normal) [...] biotin. Lab Interpretation Normal (test code = 64289-0) [facility] [id number] 18:25:29 Test Item Value Reference Range Interpretation Comments NT-proBNP (test code = 376 pg/mL <=125 H 1505438238) OMAYRA (test code = OMAYRA) Biotin has been reported to cause a negative bias, interpret results relative to patient's use of biotin. Lab Interpretation (test Abnormal code = 33858-3) [facility] Metabolic Panel (05989)2023-01-24 18:24:03 Test Item Value Reference Range Interpretation Comments NA (test code = 135 mmol/L 135-145 1535822414) K (test code = 4.0 mmol/L 3.5-5.0 8266592437) CL (test code = 90 mmol/L 98-108 L 9622622394) CO2 TOTAL (test code = 43 mmol/L 23-31 H 2879344096) AGAP (test code = 2 2-16 3186023393) BUN (test code = 12 mg/dL 7-23 0835284815) GLUCOSE (test code = 92 mg/dL 70-110 5714099558) CREATININE (test code = 0.58 mg/dL 0.60-1.25 L 2778894286) TOTAL BILI (test code = 1.3 mg/dL 0.1-1.1 H 3925559086) CALCIUM (test code = 8.6 mg/dL 8.6-10.6 3265127922) T PROTEIN (test code = 6.0 g/dL 6.3-8.2 L 8609969634) ALBUMIN (test code = 3.6 g/dL 3.5-5.0 8338943135) ALK PHOS (test code = 52 U/L 34-122 7615439978) ALTv (test code = 17 U/L 5-50 1742-6) AST(SGOT) (test code = 10 U/L 13-40 L 4891366371) eGFR (test code = 141.1 mL/min/1.73m2 9817655125) OMAYRA (test code = OMAYRA) Association of [...] tests). Lab Interpretation Abnormal (test code = 02885-6) [facility]2023-[facility]-08 18:23:38 ALCOHOL<10mg/dL05/04/2023 1:23 [facility] Qazonvip09-330 Toxic>100 Depression of SKILL TRAINING 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>400 Fatalities [facility]ortedCherry [facility] HospitalC with [id number] 18:09:00 Test Item Value Reference Range Interpretation Comments WBC (test code = 7.84 See_Comment [Automated 6690-2) message] The sy stem which generated this result transmitted reference range : 4.20 - 10.70 10*3/?L. The reference range was not used to interpret this result as normal/abnormal . RBC (test code = 4.46 See_Comment [Automated 789-8) message] The sy stem [...] (test code = 59.7 fL 38.5-51.6 H 89967-4) RDW-CV (test code = 15.8 % 12.1-15.4 H 788-0) PLT (test code = 239 See_Comment [Automated 777-3) message] The sy stem which generated this result transmitted reference range : 150 - 328 10*3/ ?L. The reference r pasquale was not used to interpret this result as normal/abnormal . MPV (test code = 10.5 fL 9.8-13.0 13319-6) NRBC/100 WBC (test 0.0 See_Comment [Automat ed code = 4712845735) message] The system which generated this result transmitted reference range : 0.0 - 10.0 /100 WBCs. The refer ence range was not u sed to interpret th is result as normal/abnormal . NRBC x10^3 (test code See_Comment [Auto mated = 1521566198) message] The s ystem which generated this result transmitted reference range : 10*3/?L. The reference range was not used to interpret this result as normal/abnormal . GRAN MAT (NEUT) % 64.5 % (test code = 770-8) IMM GRAN % (test code 0.40 % = 4769486934) LYMPH % (test code = 23.1 % 736-9) MONO % (test code = 9.8 % 5905-5) EOS % (test code = 1.8 % 713-8) BASO % (test code = 0.4 % 706-2) GRAN MAT x10^3(ANC) 5.06 10*3/uL 1.99-6.95 (test code = 0356954872) IMM GRAN x10^3 (test 0.03 10*3/uL 0.00-0.06 code = 6654169223) LYMPH x10^3 (test code 1.81 10*3/uL 1.09-3.23 = 731-0) MONO x10^3 (test code 0.77 10*3/uL 0.36-1.02 = 742-7) EOS x10^3 (test code = 0.14 10*3/uL 0.06-0.53 711-2) BASO x10^3 (test code 0.03 10*3/uL 0.01-0.09 = 704-7) Lab Interpretation Abnormal (test code = 44257-6) [facility]. METABOLIC PANEL (70061)2023-01-21 21:33:50 Test Item Value Reference Range Interpretation Comments NA (test code = 136 mmol/L 135-145 6341793875) K (test code = 4.3 mmol/L 3.5-5.0 7845933700) CL (test code = 95 mmol/L 98-108 L 5923766231) CO2 TOTAL (test code = 38 mmol/L 23-31 H 6762012624) AGAP (test code = 3 2-16 4476003677) BUN (test code = 17 mg/dL 7-23 2385178449) GLUCOSE (test code = 102 mg/dL 70-110 4591203232) CREATININE (test code = 0.62 mg/dL 0.60-1.25 5128437981) TOTAL BILI (test code = 0.8 mg/dL 0.1-1.1 3694424042) CALCIUM (test code = 7.8 mg/dL 8.6-10.6 L 3397725296) T PROTEIN (test code = 4.9 g/dL 6.3-8.2 L 0883315652) ALBUMIN (test code = 3.0 g/dL 3.5-5.0 L 0317175997) ALK PHOS (test code = 45 U/L 34-122 1276397197) ALTv (test code = 13 U/L 5-50 1742-6) AST(SGOT) (test code = 11 U/L 13-40 L 2415064209) eGFR (test code = 130.6 mL/min/1.73m2 7561014131) OMAYRA (test code = OMAYRA) Association of [...] tests). Lab Interpretation Abnormal (test code = 04737-8) [facility] [id number] 21:11:45 Test Item Value Reference Range Interpretation Comments TROPONIN I (test code = 0.019 ng/mL <=0.034 5405685930) OMAYRA (test code = OMAYRA) Reference (Normal) [...] biotin. Lab Interpretation Normal (test code = 82608-2) [facility] [id number] 21:08:47 Test Item Value Reference Range Interpretation Comments NT-proBNP (test code = 266 pg/mL <=125 H Hemol yzed 0162603200) specimen OMAYRA (test code = OMAYRA) Biotin has been reported to cause a negative bias, interpret results relative to patient's use of biotin. Lab Interpretation Abnormal (test code = 99123-8) [facility] WITH [id number] 20:40:24 Test Item Value Reference Range Interpretation Comments WBC (test code = 6.78 See_Comment [Automated 4130-2) message] The sy stem which generated this result transmitted reference range : 4.20 - 10.70 10*3/?L. The reference range was not used to interpret this result as normal/abnormal . RBC (test code = 4.47 See_Comment [Automated 332-8) message] The sy stem which generated this [...] (test code = 60.4 fL 38.5-51.6 H 03278-2) RDW-CV (test code = 16.2 % 12.1-15.4 H 788-0) PLT (test code = 215 See_Comment [Automated 777-3) message] The sy stem which generated this result transmitted reference range : 150 - 328 10*3/ ?L. The reference r pasquale was not used to interpret this result as normal/abnormal . MPV (test code = 10.9 fL 9.8-13.0 88388-6) NRBC/100 WBC (test 0.0 See_Comment [Automat ed code = 6570850151) message] The system which generated this result transmitted reference range : 0.0 - 10.0 /100 WBCs. The refer ence range was not u sed to interpret th is result as normal/abnormal . NRBC x10^3 (test code See_Comment [Auto mated = 1044897559) message] The s ystem which generated this result transmitted reference range : 10*3/?L. The reference range was not used to interpret this result as normal/abnormal . GRAN MAT (NEUT) % 75.4 % (test code = 770-8) IMM GRAN % (test code 0.40 % = [id number]) LYMPH % (test code = 15.3 % 736-9) MONO % (test code = 7.7 % 5905-5) EOS % (test code = 0.9 % 713-8) BASO % (test code = 0.3 % 706-2) GRAN MAT x10^3(ANC) 5.11 10*3/uL 1.99-6.95 (test code = [id number]) IMM GRAN x10^3 (test 0.03 10*3/uL 0.00-0.06 code = [id number]) LYMPH x10^3 (test code 1.04 10*3/uL 1.09-3.23 L = 731-0) MONO x10^3 (test code 0.52 10*3/uL 0.36-1.02 = 742-7) EOS x10^3 (test code = 0.06 10*3/uL 0.06-0.53 711-2) BASO x10^3 (test code 0.01-0.09 = 704-7) Lab Interpretation Abnormal (test code = 41633-1) [id number] 08:49:53 Test Item Value Reference Range Interpretation Comments NT-proBNP (test code = 158 pg/mL <=125 H [id number]) OMAYRA (test code = OMAYRA) Biotin has been reported to cause a negative bias, interpret results relative to patient's use of biotin. Lab Interpretation (test Abnormal code = 65630-6) [id number] 08:44:10 Test Item Value Reference Interpretation Comments Range D-DIMER (test code = See_Comment [Autom ated [id number]) message] The system which generated this result [...] diagnosis. Lab Interpretation Normal (test code = 78796-6) [facility] METABOLIC PANEL (NA, K, CL, CO2, GLUCOSE, BUN, CREATININE, CA)2023-01-19 08:41:13 Test Item Value Reference Range Interpretation Comments NA (test code = 134 mmol/L 135-145 L 6456087224) K (test code = 5.3 mmol/L 3.5-5.0 H 8018734746) CL (test code = 91 mmol/L 98-108 L 4629577294) CO2 TOTAL (test code = 40 mmol/L 23-31 H 3575529744) AGAP (test code = 3 2-16 0820428616) BUN (test code = 14 mg/dL 7-23 5194462151) GLUCOSE (test code = 125 mg/dL 70-110 H 1743964211) CREATININE (test code = 0.64 mg/dL 0.60-1.25 4925588863) CALCIUM (test code = 8.5 mg/dL 8.6-10.6 L 7900135051) eGFR (test code = 125.9 mL/min/1.73m2 2670798281) OMAYRA (test code = OMAYRA) Association of [...] tests). Lab Interpretation Abnormal (test code = 23350-2) [facility] WITH [id number] 08:27:33 Test Item Value Reference Range Interpretation Comments WBC (test code = 10.04 See_Comment [Automated 6690-2) message] The sy stem which generated this result transmitted reference range : 4.20 - 10.70 10*3/?L. The reference range was not used to interpret this result as normal/abnormal . RBC (test code = 4.35 See_Comment [Automated 789-8) message] The sy stem [...] (test code = 58.4 fL 38.5-51.6 H 78046-7) RDW-CV (test code = 15.9 % 12.1-15.4 H 788-0) PLT (test code = 211 See_Comment [Automated 777-3) message] The sy stem which generated this result transmitted reference range : 150 - 328 10*3/ ?L. The reference r pasquale was not used to interpret this result as normal/abnormal . MPV (test code = 10.2 fL 9.8-13.0 50145-4) NRBC/100 WBC (test 0.0 See_Comment [Automat ed code = 2416443144) message] The system which generated this result transmitted reference range : 0.0 - 10.0 /100 WBCs. The refer ence range was not u sed to interpret th is result as normal/abnormal . NRBC x10^3 (test code See_Comment [Auto mated = 8311341526) message] The s ystem which generated this result transmitted reference range : 10*3/?L. The reference range was not used to interpret this result as normal/abnormal . GRAN MAT (NEUT) % 81.2 % (test code = 770-8) IMM GRAN % (test code 0.50 % = 2881260535) LYMPH % (test code = 10.1 % 736-9) MONO % (test code = 7.5 % 5905-5) EOS % (test code = 0.5 % 713-8) BASO % (test code = 0.2 % 706-2) GRAN MAT x10^3(ANC) 8.16 10*3/uL 1.99-6.95 H (test code = 0862062624) IMM GRAN x10^3 (test 0.05 10*3/uL 0.00-0.06 code = 0583988566) LYMPH x10^3 (test code 1.01 10*3/uL 1.09-3.23 L = 731-0) MONO x10^3 (test code 0.75 10*3/uL 0.36-1.02 = 742-7) EOS x10^3 (test code = 0.05 10*3/uL 0.06-0.53 L 711-2) BASO x10^3 (test code 0.01-0.09 = 704-7) Lab Interpretation Abnormal (test code = 11636-4) [id number] 12:09:33 Test Item Value Reference Range Interpretation Comments TROPONIN I (test code = 0.004 ng/mL <=0.034 1780796707) OMAYRA (test code = OMAYRA) Reference (Normal) [...] biotin. Lab Interpretation Normal (test code = 57346-9) [facility] [id number] 12:06:16 Test Item Value Reference Range Interpretation Comments NT-proBNP (test code = 135 pg/mL <=125 H 8983599648) OMAYRA (test code = OMAYRA) Biotin has been reported to cause a negative bias, interpret results relative to patient's use of biotin. Lab Interpretation (test Abnormal code = 69587-5) [facility]. Metabolic Panel (63123)2023-01-17 11:57:36 Test Item Value Reference Range Interpretation Comments NA (test code = 133 mmol/L 135-145 L 0529533747) K (test code = 5.0 mmol/L 3.5-5.0 3155382984) CL (test code = 91 mmol/L 98-108 L 5673687056) CO2 TOTAL (test code = 33 mmol/L 23-31 H 5742232432) AGAP (test code = 9 2-16 3206757494) BUN (test code = 10 mg/dL 7-23 9430787782) GLUCOSE (test code = 104 mg/dL 70-110 1524890948) CREATININE (test code = 0.63 mg/dL 0.60-1.25 0522794053) TOTAL BILI (test code = 1.2 mg/dL 0.1-1.1 H 8876571018) CALCIUM (test code = 9.0 mg/dL 8.6-10.6 5172179454) T PROTEIN (test code = 6.9 g/dL 6.3-8.2 2001166709) ALBUMIN (test code = 4.4 g/dL 3.5-5.0 0158378185) ALK PHOS (test code = 76 U/L 34-122 2371915646) ALTv (test code = 13 U/L 5-50 1742-6) AST(SGOT) (test code = 13 U/L 13-40 5541039839) eGFR (test code = 128.2 mL/min/1.73m2 6931397886) OMAYRA (test code = OMAYRA) Association of [...] tests). Lab Interpretation Abnormal (test code = 95365-7) [facility] with [id number] 11:30:52 Test Item Value Reference Range Interpretation Comments WBC (test code = 9.66 See_Comment [Automated 9090-2) message] The sy stem which generated this result transmitted reference range : 4.20 - 10.70 10*3/?L. The reference range was not used to interpret this result as normal/abnormal . RBC (test code = 5.00 See_Comment [Automated 489-8) message] The sy stem which generated this [...] (test code = 56.6 fL 38.5-51.6 H 45419-3) RDW-CV (test code = 15.4 % 12.1-15.4 788-0) PLT (test code = 261 See_Comment [Automated 777-3) message] The sy stem which generated this result transmitted reference range : 150 - 328 10*3/ ?L. The reference r pasquale was not used to interpret this result as normal/abnormal . MPV (test code = 10.4 fL 9.8-13.0 65832-0) NRBC/100 WBC (test 0.0 See_Comment [Automat ed code = 5507628391) message] The system which generated this result transmitted reference range : 0.0 - 10.0 /100 WBCs. The refer ence range was not u sed to interpret th is result as normal/abnormal . NRBC x10^3 (test code See_Comment [Auto mated = 7031578679) message] The s ystem which generated this result transmitted reference range : 10*3/?L. The reference range was not used to interpret this result as normal/abnormal . GRAN MAT (NEUT) % 58.9 % (test code = 770-8) IMM GRAN % (test code 0.40 % = 4118497229) LYMPH % (test code = 28.6 % 736-9) MONO % (test code = 10.5 % 5905-5) EOS % (test code = 0.9 % 713-8) BASO % (test code = 0.7 % 706-2) GRAN MAT x10^3(ANC) 5.69 10*3/uL 1.99-6.95 (test code = 6883529447) IMM GRAN x10^3 (test 0.04 10*3/uL 0.00-0.06 code = 5975869865) LYMPH x10^3 (test code 2.76 10*3/uL 1.09-3.23 = 731-0) MONO x10^3 (test code 1.01 10*3/uL 0.36-1.02 = 742-7) EOS x10^3 (test code = 0.09 10*3/uL 0.06-0.53 711-2) BASO x10^3 (test code 0.07 10*3/uL 0.01-0.09 = 704-7) Lab Interpretation Abnormal (test code = 65994-6) [facility] [id number] 10:20:57 Test Item Value Reference Range Interpretation Comments NT-proBNP (test code = 473 pg/mL <=125 H 1781229755) OMAYRA (test code = OMAYRA) Biotin has been reported to cause a negative bias, interpret results relative to patient's use of biotin. Lab Interpretation (test Abnormal code = 19056-2) [facility]Allen[facility]IP[facility] (56892)(TOTAL CHOLESTEROL, TRIGLYCERIDES, HDL)2022-12-12 10:18:39 Test Item Value Reference Range Interpretation Comments CHOL (test code = 9858157845) 133 mg/dL 120-200 HDL (test code = 6976803444) 38 mg/dL >=40 L HDLC RATIO (test code = 2632674657) 3.5 <=5.0 TRIG (test code = 8238362314) 57 mg/dL 30-170 LDL CHOL (test code = 62010-3) 84 mg/dL <=160 VLDL (test code = 2588522304) 11 mg/dL 5-60 Lab Interpretation (test code = Abnormal 90003-1) [facility]2023-03-26 10:18:19 Test Item Value Reference Range Interpretation Comments MAGNESIUM (test code = 0968700812) 2.0 mg/dL 1.7-2.4 Lab Interpretation (test code = Normal 58508-8) [facility] (NA, K, CL, CO2, GLUCOSE, BUN, CREATININE, CA)2022-12-12 10:18:14 Test Item Value Reference Range Interpretation Comments NA (test code = 130 mmol/L 135-145 L 8226333873) K (test code = 3.7 mmol/L 3.5-5.0 0622806581) CL (test code = 89 mmol/L 98-108 L 6347635907) CO2 TOTAL (test code = 37 mmol/L 23-31 H 0846828587) AGAP (test code = 4 2-16 0880290201) BUN (test code = 13 mg/dL 04-10479) GLUCOSE (test code = 120 mg/dL 70-110 H 5644623800) CREATININE (test code = 0.56 mg/dL 0.60-1.25 L 1975268517) CALCIUM (test code = 8.3 mg/dL 8.6-10.6 L 6820213704) eGFR (test code = 146.9 mL/min/1.73m2 9632028542) OMAYRA (test code = OMAYRA) Association of [...] tests). Lab Interpretation Abnormal (test code = 57364-0) [facility]2023-[facility]-25 00:54:58 ALCOHOL<10mg/dL12/10/2022 7:54 PM [facility]<10 Wextzzqb88-520 Toxic>100 Depression of SKILL TRAINING 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>400 [facility]atal[facility]Un[facility] FallsTROPONIN [id number] 00:50:14 Test Item Value Reference Range Interpretation Comments TROPONIN I (test code = 0.006 ng/mL <=0.034 8784706170) OMAYRA (test code = OMAYRA) Reference (Normal) [...] biotin. Lab Interpretation Normal (test code = 03938-5) [facility] [id number] 00:47:12 Test Item Value Reference Range Interpretation Comments NT-proBNP (test code = 291 pg/mL <=125 H 7251767332) OMAYRA (test code = OMAYRA) Biotin has been reported to cause a negative bias, interpret results relative to patient's use of biotin. Lab Interpretation (test Abnormal code = 12395-1) [facility]. METABOLIC PANEL (89065)2022-12-11 00:41:12 Test Item Value Reference Range Interpretation Comments NA (test code = 126 mmol/L 135-145 L 4012245231) K (test code = 4.0 mmol/L 3.5-5.0 5089924339) CL (test code = 82 mmol/L 98-108 L 1831513221) CO2 TOTAL (test code = 40 mmol/L 23-31 H 6392572923) AGAP (test code = 4 2-16 6041363702) BUN (test code = 16 mg/dL 7-23 6388991854) GLUCOSE (test code = 97 mg/dL 70-110 8897044201) CREATININE (test code = 0.67 mg/dL 0.60-1.25 4988390327) TOTAL BILI (test code = 0.8 mg/dL 0.1-1.2 1002247126) CALCIUM (test code = 8.5 mg/dL 8.6-10.6 L 2581595410) T PROTEIN (test code = 5.9 g/dL 6.3-8.2 L 0164042951) ALBUMIN (test code = 3.5 g/dL 3.5-5.0 2139847964) ALK PHOS (test code = 49 U/L 34-122 0952347236) ALTv (test code = 18 U/L 5-50 1742-6) AST(SGOT) (test code = 11 U/L 13-40 L 4069719349) eGFR (test code = 119.4 mL/min/1.73m2 6346348764) OMAYRA (test code = OMAYAR) Association of [...] tests). Lab Interpretation Abnormal (test code = 64365-1) [facility] WITH [id number] 00:29:08 Test Item Value Reference Range Interpretation Comments WBC (test code = 10.15 See_Comment [Automated 6690-2) message] The sy stem which generated this result transmitted reference range : 4.20 - 10.70 10*3/?L. The reference range was not used to interpret this result as normal/abnormal . RBC (test code = 4.52 See_Comment [Automated 789-8) message] The sy stem [...] RDW-SD (test code = 46.7 fL 38.5-51.6 89465-4) RDW-CV (test code = 13.6 % 12.1-15.4 788-0) PLT (test code = 263 See_Comment [Automated 777-3) message] The sy stem which generated this result transmitted reference range : 150 - 328 10*3/ ?L. The reference r pasquale was not used to interpret this result as normal/abnormal . MPV (test code = 9.7 fL 9.8-13.0 L 40015-0) NRBC/100 WBC (test 0.0 See_Comment [Automat ed code = 8785297484) message] The system which generated this result transmitted reference range : 0.0 - 10.0 /100 WBCs. The refer ence range was not u sed to interpret th is result as normal/abnormal . NRBC x10^3 (test code See_Comment [Auto mated = 7240628417) message] The s ystem which generated this result transmitted reference range : 10*3/?L. The reference range was not used to interpret this result as normal/abnormal . GRAN MAT (NEUT) % 71.6 % (test code = 770-8) IMM GRAN % (test code 0.90 % = 6877574927) LYMPH % (test code = 17.6 % 736-9) MONO % (test code = 8.7 % 5905-5) EOS % (test code = 1.0 % 713-8) BASO % (test code = 0.2 % 706-2) GRAN MAT x10^3(ANC) 7.27 10*3/uL 1.99-6.95 H (test code = 7645309263) IMM GRAN x10^3 (test 0.09 10*3/uL 0.00-0.06 H code = 6946894705) LYMPH x10^3 (test code 1.79 10*3/uL 1.09-3.23 = 731-0) MONO x10^3 (test code 0.88 10*3/uL 0.36-1.02 = 742-7) EOS x10^3 (test code = 0.10 10*3/uL 0.06-0.53 711-2) BASO x10^3 (test code 0.01-0.09 = 704-7) Lab Interpretation Abnormal (test code = 39492-2) [facility]Allen[facility] Acid Whole [id number] 00:14:48 Test Item Value Reference Range Interpretation Comments LACTIC ACID (test code = 1.30 mmol/L 0.50-2.20 0088193190) Lab Interpretation (test code = Normal 08149-7) [facility] (NA, K, CL, CO2, GLUCOSE, BUN, CREATININE, CA)2022-12-04 11:06:33 Test Item Value Reference Range Interpretation Comments NA (test code = 123 mmol/L 135-145 L 7394476332) K (test code = 3.8 mmol/L 3.5-5.0 9213381216) CL (test code = 86 mmol/L 98-108 L 3525660485) CO2 TOTAL (test code = 36 mmol/L 23-31 H 3601505391) AGAP (test code = 1 2-16 L 5245015165) BUN (test code = 22 mg/dL 7-23 3041295630) GLUCOSE (test code = 195 mg/dL 70-110 H 5386369995) CREATININE (test code = 0.76 mg/dL 0.60-1.25 7672516580) CALCIUM (test code = 8.2 mg/dL 8.6-10.6 L 8765383619) eGFR (test code = 103.3 mL/min/1.73m2 6280977693) OMAYRA (test code = OMAYRA) Association of [...] tests). Lab Interpretation Abnormal (test code = 36691-1) [facility] WITH [id number] 10:54:29 Test Item Value Reference Range Interpretation Comments WBC (test code = 8.54 See_Comment [Automated 3320-2) message] The sy stem which generated this result transmitted reference range : 4.20 - 10.70 10*3/?L. The reference range was not used to interpret this result as normal/abnormal . RBC (test code = 4.17 See_Comment L [Automated 902-2) message] The sy stem which generated this [...] RDW-SD (test code = 44.1 fL 38.5-51.6 26164-5) RDW-CV (test code = 13.6 % 12.1-15.4 788-0) PLT (test code = 247 See_Comment [Automated 777-3) message] The sy stem which generated this result transmitted reference range : 150 - 328 10*3/ ?L. The reference r pasquale was not used to interpret this result as normal/abnormal . MPV (test code = 9.5 fL 9.8-13.0 L 89424-1) NRBC/100 WBC (test 0.0 See_Comment [Automat ed code = 1793924239) message] The system which generated this result transmitted reference range : 0.0 - 10.0 /100 WBCs. The refer ence range was not u sed to interpret th is result as normal/abnormal . NRBC x10^3 (test code See_Comment [Auto mated = 6574338933) message] The s ystem which generated this result transmitted reference range : 10*3/?L. The reference range was not used to interpret this result as normal/abnormal . GRAN MAT (NEUT) % 93.0 % (test code = 770-8) IMM GRAN % (test code 0.90 % = 9957381079) LYMPH % (test code = 3.2 % 736-9) MONO % (test code = 2.9 % 5905-5) EOS % (test code = 0.0 % 713-8) BASO % (test code = 0.0 % 706-2) GRAN MAT x10^3(ANC) 7.94 10*3/uL 1.99-6.95 H (test code = 6694729548) IMM GRAN x10^3 (test 0.08 10*3/uL 0.00-0.06 H code = 6142889872) LYMPH x10^3 (test code 0.27 10*3/uL 1.09-3.23 L = 731-0) MONO x10^3 (test code 0.25 10*3/uL 0.36-1.02 L = 742-7) EOS x10^3 (test code = 0.06-0.53 L 711-2) BASO x10^3 (test code 0.01-0.09 = 704-7) Lab Interpretation Abnormal (test code = 71745-6) [facility] Metabolic Panel (NA, K, CL, CO2, GLUCOSE, BUN, CREATININE, CA)2022-12-03 10:44:53 Test Item Value Reference Range Interpretation Comments NA (test code = 126 mmol/L 135-145 L 0417143855) K (test code = 4.0 mmol/L 3.5-5.0 Slight 5075529459) hemolysis CL (test code = 89 mmol/L 98-108 L 1420969801) CO2 TOTAL (test code 32 mmol/L 23-31 H = 6751600323) AGAP (test code = 5 2-16 9587210168) BUN (test code = 15 mg/dL 7-23 Slight 9542306354) hemolysis GLUCOSE (test code = 115 mg/dL 70-110 H 9687975920) CREATININE (test code 0.63 mg/dL 0.60-1.25 = 2456149960) CALCIUM (test code = 7.7 mg/dL 8.6-10.6 L 1349994151) eGFR (test code = 128.2 mL/min/1.73m2 9137188428) OMAYRA (test code = OMAYRA) Association of [...] tests). Lab Interpretation Abnormal (test code = 25507-5) [facility]Allen[facility] [id number] 10:44:53 Test Item Value Reference Range Interpretation Comments MAGNESIUM (test code = 0145153480) 1.6 mg/dL 1.7-2.4 L Lab Interpretation (test code = Abnormal 05059-5) [facility] with [id number] 10:39:13 Test Item Value Reference Range Interpretation Comments WBC (test code = 11.40 See_Comment H [Automated 5593-2) message] The system which generated this result transmit anirudh reference range : 4.20 - 10.70 10*3/?L. The reference range was not used to interpret this result as normal/abnormal . RBC (test code = 4.56 See_Comment [Automated 494-5) message] The system which generated this result [...] RDW-SD (test code = 45.4 fL 38.5-51.6 67709-0) RDW-CV (test code = 13.6 % 12.1-15.4 788-0) PLT (test code = 254 See_Comment [Automated 777-3) message] The system which generated this result transmit anirudh reference range : 150 - 328 10*3/ ?L. The reference range was not u sed to interpret th is result as normal/abnormal . MPV (test code = 10.2 fL 9.8-13.0 23511-0) NRBC/100 WBC (test 0.0 See_Comment [Automat ed code = 3443981779) message] The system which generated this result transmit anirudh reference range : 0.0 - 10.0 /100 WBCs. The reference range was not used to interpret this result as normal/abnormal . NRBC x10^3 (test code See_Comment [Auto mated = 8659351804) message] The system which generated this result transmit anirudh reference range : 10*3/?L. The reference range was not used to interpret this result as normal/abnormal . GRAN MAT (NEUT) % 90.0 % (test code = 770-8) IMM GRAN % (test code 0.90 % = 5904581256) LYMPH % (test code = 5.9 % 736-9) MONO % (test code = 2.8 % 5905-5) EOS % (test code = 0.2 % 713-8) BASO % (test code = 0.2 % 706-2) GRAN MAT x10^3(ANC) 10.27 10*3/uL 1.99-6.95 H (test code = 5556906598) IMM GRAN x10^3 (test 0.10 10*3/uL 0.00-0.06 H code = 4743798448) LYMPH x10^3 (test code 0.67 10*3/uL 1.09-3.23 L = 731-0) MONO x10^3 (test code 0.32 10*3/uL 0.36-1.02 L = 742-7) EOS x10^3 (test code = 0.06-0.53 L 711-2) BASO x10^3 (test code 0.01-0.09 = 704-7) Lab Interpretation Abnormal (test code = 45658-8) [facility] METABOLIC PANEL (NA, K, CL, CO2, GLUCOSE, BUN, CREATININE, CA)2022-12-02 06:20:42 Test Item Value Reference Range Interpretation Comments NA (test code = 124 mmol/L 135-145 L 7376901277) K (test code = 4.5 mmol/L 3.5-5.0 2896454049) CL (test code = 78 mmol/L 98-108 L 3524514879) CO2 TOTAL (test code = 37 mmol/L 23-31 H 7413237144) AGAP (test code = 9 2-16 9099815258) BUN (test code = 14 mg/dL 7-23 8293909322) GLUCOSE (test code = 93 mg/dL 70-110 2519401716) CREATININE (test code = 0.71 mg/dL 0.60-1.25 6841378848) CALCIUM (test code = 9.1 mg/dL 8.6-10.6 0884724922) eGFR (test code = 111.7 mL/min/1.73m2 8029251215) OMAYRA (test code = OMAYRA) Association of [...] tests). Lab Interpretation Abnormal (test code = 02945-5) [facility] [id number] 12:22:32 Test Item Value Reference Range Interpretation Comments TROPONIN I (test code = 0.008 ng/mL <=0.034 1313173668) OMAYRA (test code = OMAYRA) Reference (Normal) [...] biotin. Lab Interpretation Normal (test code = 89463-0) [facility] (NA, K, CL, CO2, GLUCOSE, BUN, CREATININE, CA)2022-12-01 12:11:11 Test Item Value Reference Range Interpretation Comments NA (test code = 124 mmol/L 135-145 L 6791386462) K (test code = 4.2 mmol/L 3.5-5.0 1392604187) CL (test code = 79 mmol/L 98-108 L 3016238881) CO2 TOTAL (test code = 37 mmol/L 23-31 H 8318628802) AGAP (test code = 8 2-16 3131355241) BUN (test code = 16 mg/dL 7-23 5566711586) GLUCOSE (test code = 105 mg/dL 70-110 6463620841) CREATININE (test code = 0.67 mg/dL 0.60-1.25 8582105312) CALCIUM (test code = 8.6 mg/dL 8.6-10.6 9241371988) eGFR (test code = 119.4 mL/min/1.73m2 5127161660) OMAYRA (test code = OMAYRA) Association of [...] tests). Lab Interpretation Abnormal (test code = 40816-8) [facility] WITH [id number] 11:59:32 Test Item Value Reference Range Interpretation Comments WBC (test code = 12.17 See_Comment H [Automated 6990-2) message] The system [...] RDW-SD (test code = 43.8 fL 38.5-51.6 61015-6) RDW-CV (test code = 13.2 % 12.1-15.4 788-0) PLT (test code = 208 See_Comment [Automated 777-3) message] The system which generated this result transmit anirudh reference range : 150 - 328 10*3/ ?L. The reference range was not u sed to interpret th is result as normal/abnormal . MPV (test code = 9.8 fL 9.8-13.0 60225-4) NRBC/100 WBC (test 0.0 See_Comment [Automat ed code = 0761270723) message] The system which generated this result transmit anirudh reference range : 0.0 - 10.0 /100 WBCs. The reference range was not used to interpret this result as normal/abnormal . NRBC x10^3 (test code See_Comment [Auto mated = 8880931782) message] The system which generated this result transmit anirudh reference range : 10*3/?L. The reference range was not used to interpret this result as normal/abnormal . GRAN MAT (NEUT) % 85.9 % (test code = 770-8) IMM GRAN % (test code 0.50 % = 2318909953) LYMPH % (test code = 6.8 % 736-9) MONO % (test code = 6.3 % 5905-5) EOS % (test code = 0.3 % 713-8) BASO % (test code = 0.2 % 706-2) GRAN MAT x10^3(ANC) 10.44 10*3/uL 1.99-6.95 H (test code = 4818448657) IMM GRAN x10^3 (test 0.06 10*3/uL 0.00-0.06 code = 2356756142) LYMPH x10^3 (test code 0.83 10*3/uL 1.09-3.23 L = 731-0) MONO x10^3 (test code 0.77 10*3/uL 0.36-1.02 = 742-7) EOS x10^3 (test code = 0.04 10*3/uL 0.06-0.53 L 711-2) BASO x10^3 (test code 0.03 10*3/uL 0.01-0.09 = 704-7) Lab Interpretation Abnormal (test code = 00771-0) [facility] METABOLIC PANEL (NA, K, CL, CO2, GLUCOSE, BUN, CREATININE, CA)2022-11-28 17:17:23 Test Item Value Reference Range Interpretation Comments NA (test code = 120 mmol/L 135-145 L 1671519319) K (test code = 4.3 mmol/L 3.5-5.0 0521757156) CL (test code = 77 mmol/L 98-108 L 1421797346) CO2 TOTAL (test code = 40 mmol/L 23-31 H 1701887719) AGAP (test code = 3 2-16 1813455117) BUN (test code = 15 mg/dL 7-23 9246753538) GLUCOSE (test code = 151 mg/dL 70-110 H 1407335075) CREATININE (test code = 0.63 mg/dL 0.60-1.25 5380790626) CALCIUM (test code = 8.2 mg/dL 8.6-10.6 L 8368640842) eGFR (test code = 128.2 mL/min/1.73m2 4623947600) OMAYRA (test code = OMAYRA) Association of [...] tests). Lab Interpretation Abnormal (test code = 21978-0) [facility]10 Test Item Value Reference Range Interpretation Comments MAGNESIUM (test code = 5020653257) 1.6 mg/dL 1.7-2.4 L Lab Interpretation (test code = Abnormal 60988-7) [facility] (NA, K, CL, CO2, GLUCOSE, BUN, CREATININE, CA)2022-11-28 01:29:53 Test Item Value Reference Range Interpretation Comments NA (test code = 120 mmol/L 135-145 L 4206148955) K (test code = 3.9 mmol/L 3.5-5.0 3822157710) CL (test code = 77 mmol/L 98-108 L 4891101916) CO2 TOTAL (test code = 36 mmol/L 23-31 H 7258251900) AGAP (test code = 7 2-16 5819560003) BUN (test code = 17 mg/dL 7-23 8973857397) GLUCOSE (test code = 85 mg/dL 70-110 6130074293) CREATININE (test code = 0.76 mg/dL 0.60-1.25 1001467096) CALCIUM (test code = 8.3 mg/dL 8.6-10.6 L 2428755200) eGFR (test code = 103.3 mL/min/1.73m2 3232351011) OMAYRA (test code = OMAYRA) Association of [...] tests). Lab Interpretation Abnormal (test code = 76478-2) [facility] (NA, K, CL, CO2, GLUCOSE, BUN, CREATININE, CA)2022-11-27 20:36:26 Test Item Value Reference Range Interpretation Comments NA (test code = 122 mmol/L 135-145 L 8674786755) K (test code = 3.9 mmol/L 3.5-5.0 1359522369) CL (test code = 79 mmol/L 98-108 L 9217221621) CO2 TOTAL (test code = 37 mmol/L 23-31 H 7098751184) AGAP (test code = 6 2-16 5476150323) BUN (test code = 17 mg/dL 7-23 9039221720) GLUCOSE (test code = 113 mg/dL 70-110 H 8859664602) CREATININE (test code = 0.78 mg/dL 0.60-1.25 6037394443) CALCIUM (test code = 7.8 mg/dL 8.6-10.6 L 5863595046) eGFR (test code = 100.2 mL/min/1.73m2 1530597066) OMAYRA (test code = OMAYRA) Association of [...] tests). Lab Interpretation Abnormal (test code = 55279-2) [facility]A1C[facility]2022-11-27 18:21:30 Test Item Value Reference Range Interpretation Comments HGB A1C (test code = 5.9 % 4.0-5.7 H 4548-4) OMAYRA (test code = OMAYRA) Reference RangesNormal: <5.7%Prediabetes: 5.7 - 6.4%Diabetes: > 6.5% Lab Interpretation (test Abnormal code = 00094-1) [facility] [id number] 06:12:58 Test Item Value Reference Range Interpretation Comments TROPONIN I (test code = 0.007 ng/mL <=0.034 6807393036) OMAYRA (test code = OMAYRA) Reference (Normal) [...] biotin. Lab Interpretation Normal (test code = 49587-8) [facility]20[facility] 06:10:43 ALCOHOL<10mg/dL11/27/2022 12:10 AM [facility]<10 Pubfutsx33-763 Toxic>100 Depression of SKILL TRAINING 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>400 Fatalities [facility]UnB[facility] FallsN-TERMINAL [id number] 06:09:37 Test Item Value Reference Range Interpretation Comments NT-proBNP (test code = 311 pg/mL <=125 H 6189268563) OMAYRA (test code = OMAYRA) Biotin has been reported to cause a negative bias, interpret results relative to patient's use of biotin. Lab Interpretation (test Abnormal code = 77623-2) [facility]Allen[facility] METABOLIC PANEL ([id number])2022-11-27 06:08:02 Test Item Value Reference Range Interpretation Comments NA (test code = 116 mmol/L 135-145 LL 4752109325) K (test code = 4.1 mmol/L 3.5-5.0 1613722838) CL (test code = 75 mmol/L 98-108 L 9321584963) CO2 TOTAL (test code = 34 mmol/L 23-31 H 5078441029) AGAP (test code = 7 2-16 0238171213) BUN (test code = 16 mg/dL 7-23 5330151389) GLUCOSE (test code = 70 mg/dL 70-110 6069574063) CREATININE (test code = 0.62 mg/dL 0.60-1.25 7155553930) TOTAL BILI (test code = 1.2 mg/dL 0.1-1.1 H 6605213931) CALCIUM (test code = 8.1 mg/dL 8.6-10.6 L 1776932420) T PROTEIN (test code = 6.3 g/dL 6.3-8.2 2552351899) ALBUMIN (test code = 3.8 g/dL 3.5-5.0 7054734550) ALK PHOS (test code = 58 U/L 34-122 5536322406) ALTv (test code = 15 U/L 5-50 1742-6) AST(SGOT) (test code = 13 U/L 13-40 2671909846) eGFR (test code = 130.6 mL/min/1.73m2 5104950588) OMAYRA (test code = OMAYRA) Association of [...] tests). Lab Interpretation Abnormal (test code = 68745-3) [facility] WITH [id number] 05:45:18 Test Item Value Reference Range Interpretation Comments WBC (test code = 9.18 See_Comment [Automated 2490-2) message] The sy stem which generated this result transmitted reference range : 4.20 - 10.70 10*3/?L. The reference range was not used to interpret this result as normal/abnormal . RBC (test code = 4.49 See_Comment [Automated 789-8) message] The sy stem [...] RDW-SD (test code = 40.1 fL 38.5-51.6 83230-2) RDW-CV (test code = 12.6 % 12.1-15.4 788-0) PLT (test code = 216 See_Comment [Automated 777-3) message] The sy stem which generated this result transmitted reference range : 150 - 328 10*3/ ?L. The reference r pasquale was not used to interpret this result as normal/abnormal . MPV (test code = 9.4 fL 9.8-13.0 L 73237-2) NRBC/100 WBC (test 0.0 See_Comment [Automat ed code = 7909319595) message] The system which generated this result transmitted reference range : 0.0 - 10.0 /100 WBCs. The refer ence range was not u sed to interpret th is result as normal/abnormal . NRBC x10^3 (test code See_Comment [Auto mated = 3808917708) message] The s ystem which generated this result transmitted reference range : 10*3/?L. The reference range was not used to interpret this result as normal/abnormal . GRAN MAT (NEUT) % 79.1 % (test code = 770-8) IMM GRAN % (test code 0.90 % = 3999938330) LYMPH % (test code = 11.8 % 736-9) MONO % (test code = 6.8 % 5905-5) EOS % (test code = 1.2 % 713-8) BASO % (test code = 0.2 % 706-2) GRAN MAT x10^3(ANC) 7.27 10*3/uL 1.99-6.95 H (test code = 8586744359) IMM GRAN x10^3 (test 0.08 10*3/uL 0.00-0.06 H code = 8758370880) LYMPH x10^3 (test code 1.08 10*3/uL 1.09-3.23 L = 731-0) MONO x10^3 (test code 0.62 10*3/uL 0.36-1.02 = 742-7) EOS x10^3 (test code = 0.11 10*3/uL 0.06-0.53 711-2) BASO x10^3 (test code 0.01-0.09 = 704-7) Lab Interpretation Abnormal (test code = 12988-1) [facility] [id number] 09:49:54 Test Item Value Reference Range Interpretation Comments NT-proBNP (test code = 294 pg/mL <=125 H 7410341608) OMAYRA (test code = OMAYRA) Biotin has been reported to cause a negative bias, interpret results relative to patient's use of biotin. Lab Interpretation (test Abnormal code = 53595-0) [facility] ([id number])2022-11-19 09:41:52 Test Item Value Reference Range Interpretation Comments NA (test code = 120 mmol/L 135-145 L 0149325127) K (test code = 4.4 mmol/L 3.5-5.0 2194961144) CL (test code = 80 mmol/L 98-108 L 6808310492) CO2 TOTAL (test code = 34 mmol/L 23-31 H 3266950620) AGAP (test code = 6 2-16 2961057911) BUN (test code = 10 mg/dL 7-23 7150790556) GLUCOSE (test code = 93 mg/dL 70-110 0784245605) CREATININE (test code = 0.77 mg/dL 0.60-1.25 3991539726) TOTAL BILI (test code = 1.1 mg/dL 0.1-1.9 1840813974) CALCIUM (test code = 8.7 mg/dL 8.6-10.6 4524256096) T PROTEIN (test code = 6.9 g/dL 6.3-8.2 4832071443) ALBUMIN (test code = 4.1 g/dL 3.5-5.0 5241420585) ALK PHOS (test code = 60 U/L 34-122 7202578725) ALTv (test code = 14 U/L 5-50 1742-6) AST(SGOT) (test code = 13 U/L 13-40 9696006952) eGFR (test code = 101.7 mL/min/1.73m2 9036212196) OMAYRA (test code = OMAYRA) Association of [...] tests). Lab Interpretation Abnormal (test code = 98650-0) [facility] WITH [id number] 09:02:29 Test Item Value Reference Range Interpretation Comments WBC (test code = 8.30 See_Comment [Automated 5290-2) message] The sy stem which generated this result transmitted reference range : 4.20 - 10.70 10*3/?L. The reference range was not used to interpret this result as normal/abnormal . RBC (test code = 4.67 See_Comment [Automated 644-8) message] The sy stem which generated this [...] RDW-SD (test code = 42.3 fL 38.5-51.6 43505-5) RDW-CV (test code = 12.9 % 12.1-15.4 788-0) PLT (test code = 252 See_Comment [Automated 927-3) message] The sy stem which generated this result transmitted reference range : 150 - 328 10*3/ ?L. The reference r pasquale was not used to interpret this result as normal/abnormal . MPV (test code = 9.6 fL 9.8-13.0 L 57813-3) NRBC/100 WBC (test 0.0 See_Comment [Automat ed code = 4638400892) message] The system which generated this result transmitted reference range : 0.0 - 10.0 /100 WBCs. The refer ence range was not u sed to interpret th is result as normal/abnormal . NRBC x10^3 (test code See_Comment [Auto mated = 0611854577) message] The s ystem which generated this result transmitted reference range : 10*3/?L. The reference range was not used to interpret this result as normal/abnormal . GRAN MAT (NEUT) % 70.7 % (test code = 770-8) IMM GRAN % (test code 1.00 % = 9361107132) LYMPH % (test code = 16.0 % 736-9) MONO % (test code = 10.5 % 5905-5) EOS % (test code = 1.3 % 713-8) BASO % (test code = 0.5 % 706-2) GRAN MAT x10^3(ANC) 5.87 10*3/uL 1.99-6.95 (test code = 8540040547) IMM GRAN x10^3 (test 0.08 10*3/uL 0.00-0.06 H code = 6907173340) LYMPH x10^3 (test code 1.33 10*3/uL 1.09-3.23 = 731-0) MONO x10^3 (test code 0.87 10*3/uL 0.36-1.02 = 742-7) EOS x10^3 (test code = 0.11 10*3/uL 0.06-0.53 711-2) BASO x10^3 (test code 0.04 10*3/uL 0.01-0.09 = 704-7) Lab Interpretation Abnormal (test code = 80748-2) [facility] METABOLIC PANEL (NA, K, CL, CO2, GLUCOSE, BUN, CREATININE, CA)2022-11-10 23:42:55 Test Item Value Reference Range Interpretation Comments NA (test code = 121 mmol/L 135-145 L 0828370602) K (test code = 4.7 mmol/L 3.5-5.0 3832089397) CL (test code = 82 mmol/L 98-108 L 7491456575) CO2 TOTAL (test code = 34 mmol/L 23-31 H 9675114155) AGAP (test code = 5 2-16 8275938412) BUN (test code = 15 mg/dL 7-23 0054819918) GLUCOSE (test code = 120 mg/dL 70-110 H 0896772533) CREATININE (test code = 0.75 mg/dL 0.60-1.25 2402822094) CALCIUM (test code = 7.7 mg/dL 8.6-10.6 L 2486465835) eGFR (test code = 104.8 mL/min/1.73m2 2472825475) OMAYRA (test code = OMAYRA) Association of [...] tests). Lab Interpretation Abnormal (test code = 29610-3) [facility] METABOLIC PANEL (NA, K, CL, CO2, GLUCOSE, BUN, CREATININE, CA)2022-11-10 17:59:59 Test Item Value Reference Range Interpretation Comments NA (test code = 121 mmol/L 135-145 L 1786816849) K (test code = 4.3 mmol/L 3.5-5.0 6905320012) CL (test code = 81 mmol/L 98-108 L 4649220680) CO2 TOTAL (test code = 38 mmol/L 23-31 H 4074979975) AGAP (test code = 2 2-16 5636269341) BUN (test code = 15 mg/dL 7-23 4808038604) GLUCOSE (test code = 113 mg/dL 70-110 H 7668443591) CREATININE (test code = 0.74 mg/dL 0.60-1.25 5131923671) CALCIUM (test code = 7.5 mg/dL 8.6-10.6 L 2695894483) eGFR (test code = 106.5 mL/min/1.73m2 4754963476) OMAYRA (test code = OMAYRA) Association of [...] tests). Lab Interpretation Abnormal (test code = 06437-6) [facility] [id number] 13:08:23 Test Item Value Reference Range Interpretation Comments NT-proBNP (test code = 177 pg/mL <=125 H 1926129075) OMAYRA (test code = OMAYRA) Biotin has been reported to cause a negative bias, interpret results relative to patient's use of biotin. Lab Interpretation (test Abnormal code = 43507-4) [facility] [id number] 08:23:33 Test Item Value Reference Range Interpretation Comments TROPONIN I (test code = 0.004 ng/mL <=0.034 2618467981) OMAYRA (test code = OMAYRA) Reference (Normal) [...] biotin. Lab Interpretation Normal (test code = 86183-5) [facility]OLIC PAN[facility] (73073)2022-11-09 08:12:09 Test Item Value Reference Range Interpretation Comments NA (test code = 123 mmol/L 135-145 L 9139560044) K (test code = 4.2 mmol/L 3.5-5.0 4733889857) CL (test code = 78 mmol/L 98-108 L 1525919302) CO2 TOTAL (test code = 34 mmol/L 23-31 H 1098227769) AGAP (test code = 11 2-16 0138034321) BUN (test code = 8 mg/dL 7-23 6221751772) GLUCOSE (test code = 113 mg/dL 70-110 H 9757728160) CREATININE (test code = 0.87 mg/dL 0.60-1.25 3204661728) TOTAL BILI (test code = 1.2 mg/dL 0.1-1.1 H 3583757060) CALCIUM (test code = 8.8 mg/dL 8.6-10.6 3770503693) T PROTEIN (test code = 7.6 g/dL 6.3-8.2 3159752544) ALBUMIN (test code = 4.5 g/dL 3.5-5.0 6612732828) ALK PHOS (test code = 72 U/L 34-122 4019016530) ALTv (test code = 13 U/L 5-50 2-6) AST(SGOT) (test code = 13 U/L 13-40 8119471037) eGFR (test code = 88.3 mL/min/1.73m2 6774178754) OMAYRA (test code = OMAYRA) Association of [...] tests). Lab Interpretation Abnormal (test code = 48157-3) [facility]Allen[facility]IP[facility], [id number] 08:11:14 Test Item Value Reference Range Interpretation Comments LIPASE (test code = 0807398882) 108 U/L 0-220 Lab Interpretation (test code = Normal 44105-1) [facility] WITH [id number] 07:59:28 Test Item Value Reference Range Interpretation Comments WBC (test code = 8.95 See_Comment [Automated message] 9790-2) The system [employer] generated this result transmitted ref erence range: 4.20 - 1 0.70 10*3/?L. The re ference range was not u sed to interpret this result as normal/abnor mal. RBC (test code = 5.07 See_Comment [Automated message] 379-8) The system [employer] generated this result transmitted ref erence range: [...] RDW-SD (test code 41.1 fL 38.5-51.6 = 37368-3) RDW-CV (test code 12.5 % 12.1-15.4 = 788-0) PLT (test code = 235 See_Comment [Automated message] 017-3) The system [employer] generated this result transmitted ref erence range: 150 - 32 8 10*3/?L. The re ference range was not u sed to interpret this result as normal/abnor mal. MPV (test code = 9.8 fL 9.8-13.0 96746-7) NRBC/100 WBC (test 0.0 See_Comment [Automat ed message] code = 9417165348) The syste m which generated this result transmitted ref erence range: 0.0 - 10 .0 /100 WBCs. The refer ence range was not u sed to interpret this result as normal/abnor mal. NRBC x10^3 (test See_Comment [Automated message] code = 2945150436) The syste m which generated this result transmitted ref erence range: 10*3/?L. The reference range was not used to interpr et this result as normal/abnormal . GRAN MAT (NEUT) % 56.9 % (test code = 770-8) IMM GRAN % (test 0.40 % code = 2234311639) LYMPH % (test code 29.4 % = 736-9) MONO % (test code 9.5 % = 5905-5) EOS % (test code = 3.0 % 713-8) BASO % (test code 0.8 % = 706-2) GRAN MAT 5.09 10*3/uL 1.99-6.95 x10^3(ANC) (test code = 0673865267) IMM GRAN x10^3 0.04 10*3/uL 0.00-0.06 (test code = 7554065416) LYMPH x10^3 (test 2.63 10*3/uL 1.09-3.23 code = 731-0) MONO x10^3 (test 0.85 10*3/uL 0.36-1.02 code = 742-7) EOS x10^3 (test 0.27 10*3/uL 0.06-0.53 code = 711-2) BASO x10^3 (test 0.07 10*3/uL 0.01-0.09 code = 704-7) [facility], [id number] 19:05:00 Test Item Value Reference Range Interpretation [...] U APPEAR (test code = clear 3267) [facility] URINALYSIS, [id number] 19:05:00 Test Item Value Reference Range Interpretation [...] APPEAR (test code = clear 3267) [facility] [id number] 19:05:00 Test Item Value Reference Range Interpretation [...] U APPEAR (test code = clear 3267) [facility] ABDOMEN PELVIS W [id number] 17:53:531. ?No hydronephrosis or nephrolithiasis. 2. ?Mild [...] hernia with mild circumferential distalesophageal thickening (2:16). Harlan density within the distal stomach andat the [...] hernia with mild circumferential distalesophageal thickening (2:16). Harlan density within the distal stomach andat the [...] small right hydrocele.5. Additional findings as above. [facility]Allen[facility]inalysis20[facility] 17:37:38 Test Item Value Reference Range Interpretation Comments APPEARANCE (test code = Cloudy Clear A 4349975989) COLOR (test code = Red Yellow A 1592275435) PH (test code = 4.8-8.0 5105736784) SP GRAVITY (test code = 1.003-1.030 8598688584) GLU U QUAL (test code = 50 mg/dL Normal A 3769310791) BLOOD (test code = 3+ Negative A 6641608098) KETONES (test code = Negative Negative 3490431343) PROTEIN (test code = 100 mg/dL Negative A 2887-8) UROBILIN (test code = Normal Normal 6304548008) BILIRUBIN (test code = Negative Negative 1861860799) NITRITE (test code = Negative Negative 5630593678) LEUK DIANELYS (test code = Negative Negative 2592181163) RBC/HPF (test code = >182 See_Comment H [Autom ated message] 7801446975) The system [employer] generated this result transmit anirudh reference range : 0 - 3 HPF. The refe rence range was not u sed to interpret th is result as normal/abnormal . WBC/HPF (test code = >182 See_Comment H [Autom ated message] 1208775312) The system [employer] generated this result transmit anirudh reference range : 0 - 5 HPF. The refe rence range was not u sed to interpret th is result as normal/abnormal . BACTERIA (test code = Moderate Negative A 5193843318) WBC CLUMPS (test code = See_Comment H [Au tomated message] 6011957353) The system [employer] generated this result transmit anirudh reference range : <=1 HPF. The refere nce range was not u sed to interpret th is result as normal/abnormal . Lab Interpretation (test Abnormal code = 29568-9) [facility] Metabolic Panel (NA, K, CL, CO2, GLUCOSE, BUN, CREATININE, CA)2020-12-12 17:13:57 Test Item Value Reference Range Interpretation Comments NA (test code = 140 mmol/L 135-145 1275245823) K (test code = 4.5 mmol/L 3.5-5.0 0378822236) CL (test code = 100 mmol/L 98-108 5689780544) CO2 TOTAL (test code = 35 mmol/L 23-31 H 1829090334) AGAP (test code = 2-16 9551172434) BUN (test code = 25 mg/dL 7-23 H 4611685237) GLUCOSE (test code = 114 mg/dL 70-110 H 1175016960) CREATININE (test code = 1.18 mg/dL 0.60-1.25 0663801464) CALCIUM (test code = 9.0 mg/dL 8.6-10.6 8685522414) eGFR Calculation mL/min/1.73m2 (Non-) (test code = 2035213875) eGFR Calculation mL/min/1.73m2 () (test code = 2082146602) OMAYRA (test code = OMAYRA) Association of [...] tests). Lab Interpretation Abnormal (test code = 13304-8) [facility] with [id number] 16:56:10 Test Item Value Reference Range Interpretation [...] RDW-SD (test code = 42.9 fL 38.5-51.6 53882-4) RDW-CV (test code = 11.9 % 12.1-15.4 L 788-0) PLT (test code = See_Comment [Automated 777-3) message] The sy stem which generated this result transmitted reference range : 150 - 328 10*3/ ?L. The reference r pasquale was not used to interpret this result as normal/abnormal . MPV (test code = 10.8 fL 9.8-13.0 81549-0) NRBC/100 WBC (test See_Comment [Automat ed code = 1619480266) message] The system which generated this result transmitted reference range : 0.0 - 10.0 /100 WBCs. The refer ence range was not u sed to interpret th is result as normal/abnormal . NRBC x10^3 (test code <0.01 See_Comment [Auto mated = 7869317818) message] The s ystem which generated this result transmitted reference range : 10*3/?L. The reference range was not used to interpret this result as normal/abnormal . GRAN MAT (NEUT) % 63.5 % (test code = 770-8) IMM GRAN % (test code 0.40 % = 4177500116) LYMPH % (test code = 23.9 % 736-9) MONO % (test code = 6.7 % 5905-5) EOS % (test code = 4.3 % 713-8) BASO % (test code = 1.2 % 706-2) GRAN MAT x10^3(ANC) 4.27 10*3/uL 1.99-6.95 (test code = 6813371252) IMM GRAN x10^3 (test 0.03 10*3/uL 0.00-0.06 code = 9991755026) LYMPH x10^3 (test code 1.61 10*3/uL 1.09-3.23 = 731-0) MONO x10^3 (test code 0.45 10*3/uL 0.36-1.02 = 742-7) EOS x10^3 (test code = 0.29 10*3/uL 0.06-0.53 711-2) BASO x10^3 (test code 0.08 10*3/uL 0.01-0.09 = 704-7) Lab Interpretation Abnormal (test code = 00806-3) [facility], [id number] 18:56:00 Test Item Value Reference Range Interpretation [...] 3267) Lab Interpretation (test code Abnormal = 82916-1) [facility], [id number] 18:56:00 Test Item Value Reference Range Interpretation [...] 3267) Lab Interpretation (test code Abnormal = 73593-9) [facility]ST [id number] 16:22:00 Patient Name: JUAN C MONGE Unit No: [id number] EXAMS: CPT CODE: [id number] XR CHEST 1V 39310 EXAMINATION: - XR CHEST 1V. LOCATION: B2. HISTORY: S/P ICD. COMPARISON: None. TECHNIQUE: Single AP view of the chest was obtained. FINDINGS: The right lung apex is excluded from the pbwey-ah-qnvh. The heart isnormal in size. Left AICD device is present. The lungs are clear. No acute osseous abnormality is lalo ntified. IMPRESSION: The right lung apex is excluded from the eeoyr-pk-cpak. No acute cardiopulmonary abnormality is identified. at 1622 Reported and signed by: Latanya Marshall MD CC: Tyrell Mckeon Technologist: KERRY aMthewsRS, RT(R) Transcrpt Date/Tm/Trnsp: 06/19/2020 (1622) t.SDR.PR7 Orig Print D/T: S: 06/19/2020 (1625) [facility] NAME: JUAN C MONGE [id number] PHYS: [place] [address] : 1960 AGE: 59 SEX: M LOC: Z.354 A PHONE #: [phone] EXAM DATE: 06/19/2020 STATUS:ADM IN FAX #: [phone] RADIOLOGY NO: PAGE 1 Signed ReportBASIC METABOLIC [id number] 13:17:00 Test Item Value Reference Range Interpretation [...] code = MG/DL 8.7-9.7 CA) Comments to [employer]: NURSE WILL BRING SPECIMEN TO LABIs this a LINE draw? N [id number] 13:17:00 Test Item Value Reference Range Interpretation Comments MAGNESIUM (test code = MAG) MG/DL 1.6-2.3 Comments to [employer]: NURSE WILL BRING SPECIMEN TO LABIs this a LINE draw? N BASIC METABOLIC [id number] 13:17:00 Test Item Value Reference Range Interpretation [...] 9.1 MG/DL 8.4-10.2 N CA) Comments to [employer]: NURSE WILL BRING SPECIMEN TO LABIs this a LINE draw? N [id number] 13:17:00 Test Item Value Reference Range Interpretation Comments MAGNESIUM (test code = MAG) 2.2 MG/DL 1.6-2.3 N Comments to [employer]: NURSE WILL BRING SPECIMEN TO LABIs this a LINE draw? N BASIC METABOLIC [id number] 13:16:00 Test Item Value Reference Range Interpretation [...] code = MG/DL 8.7-9.7 CA) Comments to [employer]: NURSE WILL BRING SPECIMEN TO LABIs this a LINE draw? N [id number] 13:16:00 Test Item Value Reference Range Interpretation Comments MAGNESIUM (test code = MAG) MG/DL 1.6-2.3 Comments to [employer]: NURSE WILL BRING SPECIMEN TO LABIs this a LINE draw? N BASIC METABOLIC [id number] 13:14:00 Test Item Value Reference Range Interpretation [...] code = CA) MG/DL 8.7-9.7 Comments to [employer]: NURSE WILL BRING SPECIMEN TO LABIs this a LINE draw? N [id number] 13:14:00 Test Item Value Reference Range Interpretation Comments MAGNESIUM (test code = MAG) MG/DL 1.6-2.3 Comments to [employer]: NURSE WILL BRING SPECIMEN TO LABIs this a LINE draw? N BASIC METABOLIC [id number] 13:13:00 Test Item Value Reference Range Interpretation [...] code = CA) MG/DL 8.7-9.7 Comments to [employer]: NURSE WILL BRING SPECIMEN TO LABIs this a LINE draw? N [id number] 13:13:00 Test Item Value Reference Range Interpretation Comments MAGNESIUM (test code = MAG) MG/DL 1.6-2.3 Comments to [employer]: NURSE WILL BRING SPECIMEN TO LABIs this a LINE draw? N PROTHROMBIN [id number] 13:08:00 Test Item Value Reference Range Interpretation [...] dial infarction. 2. 0 - 3.0 3. [employer] prosthesis hear t valves, recurre nt systemic emboli sm. 3.0 - 4.5 Comments to [employer]: NURSE WILL BRING SPECIMEN TO LABPTT ACTIVATED 2020-06-19 13:08:00 Test Item Value Reference Range Interpretation Comments PTT ACTIVATED (test code = APTT) 30.8 SECONDS 25.1-36.5 N Comments to [employer]: NURSE WILL BRING SPECIMEN TO LABCBC W/AUTO [...] 0.00 K/mm3 0.0-0.1 N NRBC#) Comments to [employer]: NURSE WILL BRING SPECIMEN TO LABIs this a LINE draw? N COVID 19 Asymptomatic IH [id number] 12:14:00 Test Item Value Reference Range Interpretation [...] the sample." Notes Date/Time Note Provider Source 2023-03-20 [facility] Hospitalist Discharge Summary REPORT#:[id number] REPORT STATUS: Signed DATE:03/20/23 TIME: 0011 PATIENT: JUAN C MONGE UNIT #: [id number] ROOM/BED: [address] : 56 AGE: 62 SEX: M ATTEND: Rudy Xiao ADM AUTHOR: Rudy Xiao MD * ALL edits or amendments must be made on the [employer]/computer document * General Information Discharge date: 03/19/23 Discharge diagnosis: Acute Respiratory Failure w/ Hypoxia Hypercapni a Acute COPD Exacerbation COPD Hypotension Improved, known history of c hronic hypertension. Blood pressure stable over the day. Hyponatremia Paroxysmal Atrial Fibrillation Chronic Systolic CHF s/p AICD Macrocytic Anemia Dementia Hospital course: Acute Respiratory Failure w/ Hypoxia Hypercapnia Acute COPD Exacerbation COPD Stable on morning evaluation , unchanged from prior evaluation. Patient continues to await echocardiogram and device interrogation. He is resting comfortably but is belligerant and demanding to be sent home. He is tolerating nasal cannual oxygen without dyspnea, which he uses at home. PLAN - Cont. methylprednisolone 40mg IV q8hr - Cont. scheduled duonebs, budesonide - PRN benzonatate - Cont. incentive spirometery - Cont. to ween O2 as tolerated; uses 2L home O2 Hypotension Improved, known history of c hronic hypertension. Blood pressure stable over the day. PLAN - Hold all BP meds - Cont. IV methyprednisolone, adequate for BP dupree pport, no other interventions needed at this time - Consider initiating midodrine for blood pressu re support if hypotension recurrs - Avoid fluid bolusing, Due to CHF - Echo UNREMARKABLE Hyponatremia Suspect due to HCTZ use. PLAN - Hold HCTZ - Monitor Na Paroxysmal Atrial Fibrillation Outpatient rate control for trial fibrillation u nknown at this time, takes rivaroxiban outpatient for management of embolic CVA risk. PLAN - Continuous telemetry monitoring - Cont. rivaroxiban Chronic Systolic CHF s/p AICD Patient is previously known to be on JOSE inhibitor and beta chani, but he is unsure if he is still taking these medications. PLAN - Echo pending - Device interrogation pending Macrocytic Anemia MCV 101 on admission. PLAN - B12 and Folate pending Dementia Alert and oriented to person, place, and time. PLAN - Cont. memantine, donepezil Current Tobacco Use Everyday user, smoking, 1-2 packs per day, durat ion unknown. Patient becomes agitated with abstinence and will become combative without cigarette smoking or nicotine patches. 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 nicotine patch PATIENT HAS BEEN DOING WELL TODAY. VSS. AFEBRILE. BREATHING WELL ON 2 L. ECHO UNREMARKABLE. I DISCUSSED WITH DR MCKEON WHO CHANDNI Contreras AICD INTERROGATION CAN BE DONE OUTPATIENT. HE CLEARED PT FOR DISCHARGE. PT WAS DISCHARGED IN STABLE CONDITION. Free Text DxA P Notes Free text DxA P notes: Acute Respiratory Failure w/ Hypoxia Hypercapnia Acute COPD Exacerbation COPD Stable on morning evaluation , unchanged from prior evaluation. Patient continues to await echocardiogram and device interrogation. He is resting comfortably but is belligerant and demanding to be sent home. He is tolerating nasal cannual oxygen without dyspnea, which he uses at home. PLAN - Cont. methylprednisolone 40mg IV q8hr - Cont. scheduled duonebs, budesonide - PRN benzonatate - Cont. incentive spirometery - Cont. to ween O2 as tolerated; uses 2L home O2 Hypotension Improved, known history of c hronic hypertension. Blood pressure stable over the day. PLAN - Hold all BP meds - Cont. IV methyprednisolone, adequate for BP dupree pport, no other interventions needed at this time - Consider initiating midodrine for blood pressu re support if hypotension recurrs - Avoid fluid bolusing, Due to CHF - Echo pending Hyponatremia Suspect due to HCTZ use. PLAN - Hold HCTZ - Monitor Na Paroxysmal Atrial Fibrillation Outpatient rate control for trial fibrillation u nknown at this time, takes rivaroxiban outpatient for management of embolic CVA risk. PLAN - Continuous telemetry monitoring - Cont. rivaroxiban Chronic Systolic CHF s/p AICD Patient is previously known to be on JOSE inhibitor and beta chani, but he is unsure if he is still taking these medications. PLAN - Echo pending - Device interrogation pending Macrocytic Anemia MCV 101 on admission. PLAN - B12 and Folate pending Dementia Alert and oriented to person, place, and time. PLAN - Cont. memantine, donepezil Current Tobacco Use Everyday user, smoking, 1-2 packs per day, durat ion unknown. Patient becomes agitated with abstinence and will become combative without cigarette smoking or nicotine patches. 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 nicotine patch Code Status: Full Code VTE Ppx: Rivaroxiban Diet: Cardiac Med Rec Med Rec Discharge meds: Continue taking these medications: ASPIRIN EC (ECOTRIN) 81 MG TAB.EC 81 MILLIGRAM ORAL DAILY. OMEPRAZOLE ER (PriLOSEC) 40 MG CAP.DR 40 MILLIGRAM ORAL DAILY. POTASSIUM CHLORIDE ER (MICRO-K) 10 MEQ CAP.SA 10 MILLIEQUIVALENT ORAL TWICE DAILY. BENAZEPRIL (LOTENSIN) 10 MG TAB 10 MILLIGRAM ORAL DAILY. IPRATROPIUM (ATROVENT 0.02%) 0.2 MG/ML (0.02 %) NEB 500 MICROGRAM INHALATION RT - EVERY 6 HOURS. ALBUTEROL (ALBUTEROL 2.5 MG/3 ML (75mL)) 2.5 MG/ 3 ML (0.083 %) NEB 2.5 MILLIGRAM NEB RT - EVERY 4 HOURS NEEDED. as needed for WHEEZING ATORVASTATIN (LIPITOR) 40 MG TAB 40 MILLIGRAM ORAL BEDTIME. Comments: #30 - SIG Obtained From Nanda MEMANTINE (NAMENDA) 5 MG TAB 5 MILLIGRAM ORAL DAILY. Comments: #90 - SIG Obtained From Nanda RIVAROXABAN (XARELTO) 15 MG TAB 15 MILLIGRAM ORAL DAILY. Comments: #30 - SIG Obtained From Nanda CARVEDILOL (COREG) 3.125 MG TAB 3.125 MILLIGRAM ORAL TWICE DAILY. Comments: #60 - SIG Obtained From Nanda Start taking the following new medications: levoFLOXacin (LEVAQUIN) 500 MG TAB 500 MILLIGRAM ORAL DAILY. Days = 4 Qty = 4 No Refills NICOTINE (NICODERM 21 MG) 21 MG/24 HOUR PATCH 21 MILLIGRAM TRANSDERMAL DAILY. Qty = 14 No Refills FLUTICASONE PROPIONATE/SALME TEROL (ADVAIR DISKUS 250/50 MCG/ACT) 250 MCG-50 MCG/ DOSE DISK.W.DEV 2 PUFF INHALATION RT - TWICE DAILY. Qty = 14 No Refills methylPREDNISolone (MEDROL 4 MG DOSEPAK) 4 MG TA B.DS.PK 4 MILLIGRAM ORAL DIRECTED. Qty = 1 No Refills Objective VS/I O Last Documented: Result Date Time Temp 36.4 03/19 1123 Pulse Ox 100 03/19 1000 B/P 138/69 03/19 1000 B/P Mean 97 03/19 1000 Pulse 93 / 1000 Resp 8 03/19 1000 O2 Delivery Nasal cannula 03/19 0800 O2 Flow Rate 2 03/19 0800 FiO2 40 / 0718 24 hour I O ending at 0700: 03/20 0700 03/19 1900 Intake Total 1547.00 Output Total Balance 1547.00 Intake, IV 420.00 Intake, Oral 1127 Number Voids 1 Head/Eyes: atraumatic, EOMI, normocephalic ENT: poor dentition, moist mucosal membranes Neck: full range of motion, supple/no meningismu s, no JVD Cardiovascular: irregular rhythm, normal capillary refill, normal heart sounds Respiratory: clear to auscultation, no distress Abdomen: non-tender, soft Genitourinary: no urinary catheter Extremities: moves all, no calf tenderness, no e gabe Musculoskeletal: normal inspection, painless ran ge of motion Neuro/SKILL 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: alert, normal speech Skin: dry Psychiatry: abnl judgment/in sight, normal affect, normal mood, no hallucinations Results Findings/Data: Laboratory Tests: 03/19 03/19 1121 0733 Chemistry POC Glucose (60 - 99 MG/DL) 112 H 170 H Results: MRI results reviewed Discharge Instructions PCP Discharge to: Home/Self Care Additional Discharge Routines: PCP Follow-Up, Co nsultant Follow-Up Diet: Cardiac Follow-up Appointments PCP follow-up: PCP: Undefined Provider PCP follow up timeframe: In 5 days Special instructions: CALL PCP FOR APPOINTMENT Consulting provider 1: Provider 1: Omid Tenorio MD Cardiology Specialty: CardiologyInterventional Consult follow up timeframe: In 5 days Special instructions: CALL FOR APPOINTMENT Consulting provider 2: Provider 2: Sanaz Gregory MD Specialty: Pulmonary Disease Follow up timeframe: In 1-2 weeks Special instructions: CALL FOR APPOINTMENT Quality: Discharge Current Medications Current medication review: I attest that the foregoing medication list in t he medical record is true, accurate, and complete to the best of my knowled ge. BMI Screening > 25 or < 18.5 BMI status/follow-up: nml BMI,no crisis intervention counselor needed Electronically Signed by Rudy Xiao MD on 3 at 0016 RPT #:[id number] END OF REPORT 2023-03-19 12:19:00-00:00 [facility] ([facility]) Cardiology Progress Note REPORT#:[id number] REPORT STATUS: Signed DATE:03/19/23 TIME: 1219 PATIENT: JUAN C MONGE UNIT #: [id number] ROOM/BED: [address] : 58 AGE: 62 SEX: M ATTEND: Rudy Xiao MD ADM AUTHOR: Tyrell Mckeon MD * ALL edits or amendments must be made on the [employer]/computer document * Subjective Chief complaint: Dyspnea Patient reports: No: chest pain, palpitations, shortness of breat h. Objective General VS/I O: 24 hour I O ending at 0700: 03/19 0700 03/18 1900 Intake Total 2600.00 Output Total 400 Balance 2200.00 Intake, IV 1700.00 Intake, Oral 900 Number 1 Bowel Movements Number Voids 2 Output, Urine 400 Vital Signs: Date Time Temp Pulse Resp B/P B/P Pulse O2 O2 F low FiO2 Mean Ox Delivery Rate 03/19 1123 97.5 03/19 1000 93 8 138/69 97 100 03/19 0900 81 19 130/66 92 99 03/19 0800 Nasal 2 cannula 03/19 0800 96 18 129/63 90 96 03/19 0735 97.7 07/01 0718 99 Nasal 5 40 cannula 03/19 0701 122 29 160/72 104 95 03/19 0600 88 19 134/60 96 07/ 0500 89 20 134/62 95 07/ 0400 91 17 139/64 98 07/ 0318 103 23 143/67 97 07/ 0100 102 21 148/86 98 07/ 0000 97.7 07 0000 101 20 152/77 97 03/18 2321 115 30 135/78 03/18 2300 Nasal 6 cannula 03/18 2300 98 03/18 2200 102 22 167/82 89 03/18 2116 111 137/89 92 03/18 2102 34 03/18 2000 103 23 137/72 90 03/18 1918 Nasal 2 cannula 03/18 1903 110 22 162/82 93 03/18 1901 97.9 03/18 1845 95 Nasal 2 28 cannula 03/18 1500 87 20 131/62 89 95 03/18 1452 97.5 03/18 1400 139 23 150/84 110 93 03/18 1300 81 18 136/65 94 97 PATIENT WEIGHT: Weight (lb): Weight (oz): Weight (kg): 68.182 Medications: Active Meds + DC'd Last 24 Hrs Hydroxyzine HCl (ATARAX) 10 MG Q6H PRN PRN PO Levofloxacin (LEVAQUIN) 500 MG DAILY PO Aspirin (ASPIRIN EC) 81 MG DAILY PO Donepezil HCl (ARICEPT) 5 MG DAILY PO Memantine (NAMENDA) 5 MG DAILY PO Rivaroxaban (XARELTO) 15 MG DAILY PO Tamsulosin HCl (FLOMAX) 0.4 MG DAILY PO Atorvastatin Calcium (LIPITOR) 40 MG BEDTIME PO Benzocaine/Menthol (Cepacol Sore Throat Lozenge) 1 TAB Q4H PRN PRN MM ( CKD) Sodium Chloride (SODIUM CHLORIDE 0.9%) 1,000 ML Q13H IV Benzonatate (TESSALON PERLE) 100 MG TID PRN PRN PO Guaifenesin/Dextromethorphan (ROBITUSSIN-DM) 10 ML Q4H PRN PRN PO Nicotine (NICODERM) 21 MG DAILY TRANSDERM (CKD) Methylprednisolone Sodium Succinate (SOLU-Medrol ) 40 MG Q8HR IV Acetaminophen (TYLENOL EXTRA STRENGTH TAB) 500 M G Q4H PRN PRN PO Al Hydrox/Mg Hydrox/Simethicone (MAALOX PLUS) 30 ML Q6H PRN PRN PO Docusate Sodium (COLACE) 100 MG BID PRN PRN PO Melatonin (MELATONIN) 3 MG BEDTIME PRN PRN PO Ondansetron HCl (ZOFRAN) 4 MG Q6H PRN PRN IV Albuterol/Ipratropium (DUONEB 2.5-0.5 MG/[address]) 3 ML RTQ6H INH Budesonide (Pulmicort) 0.5 MG RTQ12H NEB Physical Exam General appearance: alert, awake, oriented Head/Eyes: atraumatic, normocephalic ENT: moist mucosal membranes Neck: no JVD Cardiovascular: CV assessment: regular rate and rhythm Respiratory: decreased breath sounds, no distres s Lower extremity: LE assessment: no edema Musculoskeletal: full range of motion Neuro/SKILL TRAINING 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: alert, oriented X 3, CN II-XII intact Skin: dry, intact Psychiatry: normal affect, normal judgment/insig ht, normal mood Results Findings/Data: Laboratory Tests 03/19 03/19 1121 0733 Chemistry POC Glucose (60 - 99 MG/DL) 112 H 170 H Diagnosis, Assessment Plan Free Text DxA P Notes Free Text DxA P Notes: IMPRESSION: 1. Chronic systolic heart failure. 2. Status post Serrano automated implantable card ioverter defibrillator. 3. Dyspnea. 4. Coronary artery disease. 5. Hypertension. 6. Dyslipidemia. RECOMMENDATIONS: Continue current medical therapy. Oxygen support as needed. Cardiac stable for discharge. f/u with Dr. Tenorio as outpatient. at [address] [place] [address] #:[phone] END OF REPORT 2023-03-18 15:47:00-00:00 [id number] [address] PATIENT NAME: JUAN C MONGE ADMIT DATE: 03/15/23 ACCOUNT NO: [id number] ROOM NO: [facility] AGE: 62 REPORT TYPE: ECHOCARDIOGRAM SEX: M ADMITTING PHYSICIAN:Rudy Xiao MD ATTENDING PHYSICIAN:Rudy Xiao MD *[facility]* [address] [place] [address] Transthoracic Echocardiogram Patient: Juan C Monge Study Date: 03/18/2023 BP: 122 / 66 Location: [facility] URN: [id number] : 1960 Age: 62 Height: 70 in / 177.8 cm Gender: M Weight: 149 .7 lb / 68 kg BMI/BSA: 21.5 kg/m 2 / 1.83 m 2 *Ordering Physician: * Omid Tenorio MD *Interpreting Physician: * Omid Tenorio MD *Network Support Specialist: Vick Galdamez Indications: CAD. Study data: Transthoracic echocardiogram. Proced ure: Transthoracic echocardiography was performed. Images were obta ined using a TableNOW cardiac ultrasound machine. Image quality was adequate. M-mode, complete 2D, complete spectral Doppler, and color Doppler. Lo cation: Bedside. Patient status: Inpatient. Patient room number: 347. Study status: Routine. Findings Left ventricle: The cavity size is normal. Wall thickness is normal. Systolic function is normal. The estimated eject ion fraction is 60-64%. Left ventricular diastolic function parameters a re normal. Right ventricle: Well visualized. The cavity siz e is normal. Wall thickness is normal. Pacer wire noted in the rig ht ventricle. Systolic PATIENT NAME: JUAN C MONGE 22 function is normal. Ventricular septum: Well visualized. Left atrium: Well visualized. The atrium is norm al in size. Right atrium: Well visualized. The atrium is nor mal in size. Pacer wire noted in right atrium. Atrial septum: Well visualized. No defect or pat ent foramen ovale is identified. Aorta: The aorta is well visualized. Aortic valve: Well visualized. The valve is tril eaflet. The leaflets are normal thickness. There is no evidence of st enosis. There is no significant regurgitation. Mitral valve: Well visualized. The leaflets are normal thickness. There is no evidence of stenosis. There is mild regurgitation. Tricuspid valve: Well visualized. The leaflets a re normal thickness. There is no evidence of stenosis. There is physi ologic regurgitation. Pulmonic valve: Well visualized. The leaflets ar e normal thickness. There is no evidence of stenosis. There is no si gnificant regurgitation. Pericardium: There is no pericardial effusion. N o evidence of pleural fluid accumulation. Systemic veins: Inferior vena cava: The vessel is normal in size . Measurements Left ventricle Value Ref KVNG, LAX 4.5 cm 4.2 - 5.8 ESD, LAX 2.9 cm 2.5 - 4.0 ESD/bsa, LAX 1.6 cm/m 2 1.3 - 2.1 FS, LAX 37 % 25 - 43 PW, ED 1.2 cm 0.6 - 1.0 PW, ES 1.4 cm --------- IVS/PW, ED 1.03 --------- EF 66 % 52 - 72 E/e', avg, TDI 9 <=14 LVOT Value Ref Diam, S 2.14 cm --------- Area 3.6 cm 2 --------- Peak cheng, S 0.96 m/sec --------- Mean cheng, S 0.65 m/sec --------- VTI, S 18.9 cm --------- Peak grad, S 4 mm Hg --------- Mean grad, S 2 mm Hg --------- SV 68 ml --------- Qs 6.43 L/min --------- Qs/bsa 3.5 L/(min-m 2) --------- SV/bsa 37 ml/m 2 --------- Ventricular septum Value Ref IVS, ED 1.2 cm 0.6 - 1.0 IVS, ES 1.4 cm --------- PATIENT NAME: JUAN C MONGE 22 Right ventricle Value Ref KVNG, LAX 2.4 cm --------- RVOT Value Ref Peak v, S 0.82 m/sec --------- Peak grad, S 3 mm Hg --------- Left atrium Value Ref AP dim, ES 2.98 cm 3.00 - 4.00 AP dim, ES MM 3.3 cm 3.0 - 4.0 LA/Ao root 1.35 --------- ratio, MM Aortic valve Value Ref Leaflet sep, MM 2.18 cm --------- Peak v, S 1.5 m/sec --------- Mean v, S 0.96 m/sec --------- VTI, S 30.1 cm --------- Mean grad, S 4.5 mm Hg --------- Peak grad, S 9.1 mm Hg --------- LVOT/AV, VTI 0.63 --------- ratio CORI, VTI 2.04 cm 2 --------- LVOT/AV, Vpeak 0.64 --------- ratio CORI, Vmax 2.21 cm 2 --------- Mitral valve Value Ref Peak E 0.14 m/sec --------- Peak A 1.1 m/sec --------- Mean v, D 0.71 m/sec --------- VTI leaflet 35.6 cm --------- coapt Decel time 228 ms --------- Mean grad, D 2.3 mm Hg --------- Peak grad, D 5.6 mm Hg --------- Peak E/A ratio 0.89 --------- MR peak v 2.46 m/sec --------- Pulmonic valve Value Ref [place] v, ED 0.94 m/sec --------- Aortic root Value Ref Root diam 3.4 cm <4.0 Root diam, ED 2.44 cm --------- MM Conclusions Summary: 1. Left ventricle: The cavity size is normal. Wa ll thickness is normal. PATIENT NAME: JUAN C MONGE 22 Systolic function is normal. The estimated ejec tion fraction is 60-64%. Left ventricular diastolic function par ameters are normal. 2. Atrial septum: No defect or patent foramen ov rene is identified. Prepared and electronically signed by Omid Tenorio MD 03/18/2023 15:47 at 1547 PATIENT NAME: JUAN C MONGE 2023-03-18 10:16:00-00:00 [facility] ([facility]) Hospitalist Progress Note REPORT#:[id number] REPORT STATUS: Signed DATE:03/18/23 TIME: 1016 PATIENT: JUAN C MONGE UNIT #: [id number] ROOM/BED: [facility] : 58 AGE: 62 SEX: M ATTEND: Rudy Xiao MD ADM AUTHOR: Jenny Meyers MD R2 * ALL edits or amendments must be made on the [employer]/computer document * Jenny Meyers 03/18/23 1016: Subjective Chief complaint: SOB, hypotension HPI: 62 yo M with PMH of COPD on 2L NC, Hypertension, Anxiety, Systolic CHF s/p AICD, Afib on xarelto, CVA and dementia presented as a transfer from [facility] for evaluation of shortness of breath. Pt reports worsening SOB over the past few days. Associate d with productive cough and nausea in the past day. Pt reports having low BP last week and was seen in the ED for this with no medication changes done. Pt unsure of his exact medications but states he takes BP meds. Pt was given steroids, nen tx, pepcid a nd levaquin prior to transfer here. Hypotensive on presentation but improved with fl uids. Labs remarkable for hyponatremia, hyperkalemia, elevated bicarb and anemia with high MCV. Pt was requiring bipap at previous facility but took it off on the way here and was on 6L NC in ED. Pt's blood gases showing marked hyp ercapnia so placed back on bipap. Pt has been admitted for further evaluati on and management. Comments: - Awake, alert, conversational - Tolerating PO, tolerating supplemental O2 via nasal cannula - Ambulating with assistance - Denies fever/chills, nausea/vomiting, diarrhea , worsening SOB, chest pain, diaphoresis, dizziness - Wants to go home Review of Systems Respiratory: Reports: productive cough (sputum), SOB, wheezin g. Denies: ANNE (dyspnea on exertion), hemoptysis, non p roductive cough, parox nocturnal dyspnea, pleurisy, pleuritic pain, pneumonia. All systems rev neg: except as noted Objective General VS/I O: Vital Signs: Date Time Temp Pulse Resp B/P B/P Pulse O2 O2 F low FiO2 Mean Ox Delivery Rate 03/18 0800 76 18 122/64 87 94 03/18 0725 98.4 03/18 0705 99 Nasal 4 36 cannula 03/18 0700 68 24 122/66 88 99 03/18 0600 82 22 126/70 94 97 03/18 0500 64 16 114/61 82 100 03/18 0406 98 Nasal 4 36 cannula 03/18 0400 69 17 110/59 82 100 03/18 0300 78 18 116/60 83 98 03/18 0200 74 12 110/65 82 100 03/18 0100 80 03/18 0100 16 111/73 86 98 03/18 0000 66 18 119/57 82 97 03/17 2353 74 25 119/62 86 97 03/17 1951 98 Nasal 4 36 cannula 03/17 1942 78 27 130/72 97 99 03/17 1916 Nasal 3 cannula 03/17 1900 79 30 99 03/17 1816 88 24 125/71 92 97 03/17 1800 84 20 96 03/17 1700 74 18 97 03/17 1600 78 7 97 03/17 1500 68 19 100 03/17 1400 84 23 98 03/17 1300 73 18 100 03/17 1200 88 22 97 03/17 1134 98.3 03/17 1100 70 18 98 24 hour I O ending at 0700: 03/18 0700 03/17 1900 Intake Total 900.00 Output Total 550 Balance 350.00 Intake, IV 900.00 Output, Urine 550 PATIENT WEIGHT: Weight (lb): Weight (oz): Weight (kg): 68.182 Physical Exam General appearance: alert, awake, no acute distr ess, conversational Head/Eyes: atraumatic, EOMI, normocephalic ENT: poor dentition, moist mucosal membranes Neck: full range of motion, supple/no meningismu s, no JVD Cardiovascular: irregular rhythm, normal capillary refill, normal heart sounds Respiratory: decreased breath sounds, on oxygen (4L NC), prolonged exp phase, rhonchi, wheezing, symmetric expansion Abdomen: non-tender, soft Genitourinary: no urinary catheter Extremities: moves all, no calf tenderness, no e gabe Musculoskeletal: normal inspection, painless ran ge of motion Neuro/SKILL TRAINING 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: alert, normal speech Skin: dry Psychiatry: abnl judgment/in sight, normal affect, normal mood, no hallucinations Results Results: no new labs, vital signs reviewed, curr ent med profile rev'd Diagnosis, Assessment Plan Problem List/A P: 1. Acute respiratory failure with hypoxia and h ypercapnia 2. COPD with acute exacerbation 3. COPD (chronic obstructive pulmonary disease) 4. Paroxysmal atrial fibrillation 5. Chronic systolic heart failure 6. Dementia 7. Current tobacco use Free Text DxA P Notes Free text DxA P notes: Acute Respiratory Failure w/ Hypoxia Hypercapnia Acute COPD Exacerbation COPD Stable on morning evaluation , unchanged from prior evaluation. Patient continues to await echocardiogram and device interrogation. He is resting comfortably but is belligerant and demanding to be sent home. He is tolerating nasal cannual oxygen without dyspnea, which he uses at home. PLAN - Cont. methylprednisolone 40mg IV q8hr - Cont. scheduled duonebs, budesonide - PRN benzonatate - Cont. incentive spirometery - Cont. to ween O2 as tolerated; uses 2L home O2 Hypotension Improved, known history of c hronic hypertension. Blood pressure stable over the day. PLAN - Hold all BP meds - Cont. IV methyprednisolone, adequate for BP dupree pport, no other interventions needed at this time - Consider initiating midodrine for blood pressu re support if hypotension recurrs - Avoid fluid bolusing, Due to CHF - Echo pending Hyponatremia Suspect due to HCTZ use. PLAN - Hold HCTZ - Monitor Na Paroxysmal Atrial Fibrillation Outpatient rate control for trial fibrillation u nknown at this time, takes rivaroxiban outpatient for management of embolic CVA risk. PLAN - Continuous telemetry monitoring - Cont. rivaroxiban Chronic Systolic CHF s/p AICD Patient is previously known to be on JOSE inhibitor and beta chani, but he is unsure if he is still taking these medications. PLAN - Echo pending - Device interrogation pending Macrocytic Anemia MCV 101 on admission. PLAN - B12 and Folate pending Dementia Alert and oriented to person, place, and time. PLAN - Cont. memantine, donepezil Current Tobacco Use Everyday user, smoking, 1-2 packs per day, durat ion unknown. Patient becomes agitated with abstinence and will become combative without cigarette smoking or nicotine patches. 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 nicotine patch Code Status: Full Code VTE Ppx: Rivaroxiban Diet: Cardiac Quality: Gen Med Crit Care VTE Prophylaxis VTE prophylaxis initiated: yes (rivaroxiban) Current Medications Current medication review: I attest that the foregoing medication list in t he medical record is true, accurate, and complete to the best of my knowled ge. BMI Screening > 25 or < 18.5 BMI status/follow-up: nml BMI,no crisis intervention counselor needed Attestations Attestation needed: teaching physician Rudy Xiao 03/18/23 1743: Attestations Teaching Physician Attestation F/U visit w/ resident: I saw the patient with the resident and . . . agree with the resident's findings and plan. echo unremarkable await aicd interrogation dvt ppx: on xarelto at 1023 Electronically Signed by Rudy Xiao MD on 3 at 1743 RPT #:[id number] END OF REPORT 2023-03-18 06:54:00-00:00 [facility] ([facility] Cardiology Progress Note REPORT#:[id number] REPORT STATUS: Signed DATE:03/18/23 TIME: 653 PATIENT: JUAN C MONGE UNIT #: [id number] ROOM/BED: [address] : [address] AGE: 62 SEX: M ATTEND: Rudy Xiao ADM AUTHOR: Tyrell Mckeon MD * ALL edits or amendments must be made on the [employer]/computer document * Subjective Chief complaint: Dyspnea Patient reports: No: chest pain, palpitations, shortness of breat h. Objective General VS/I O: Vital Signs: Date Time Temp Pulse Resp B/P B/P Pulse O2 O2 F low FiO2 Mean Ox Delivery Rate 03/18 0406 98 Nasal 4 36 cannula 03/18 0100 80 03/18 0100 16 111/73 86 98 03/18 0000 66 18 119/57 82 97 03/17 2353 74 25 119/62 86 97 03/17 1951 98 Nasal 4 36 cannula 03/17 1942 78 27 130/72 97 99 03/17 1916 Nasal 3 cannula 03/17 1900 79 30 99 03/17 1816 88 24 125/71 92 97 03/17 1800 84 20 96 03/17 1700 74 18 97 03/17 1600 78 7 97 03/17 1500 68 19 100 03/17 1400 84 23 98 03/17 1300 73 18 100 03/17 1200 88 22 97 03/17 1134 98.3 03/17 1100 70 18 98 03/17 1000 74 8 98 03/17 0900 84 16 98 03/17 0800 Nasal 3 cannula 03/17 0800 74 16 100 03/17 0749 96 Nasal 4 36 cannula 03/17 0717 97.6 03/17 0700 72 26 98 PATIENT WEIGHT: Weight (lb): Weight (oz): Weight (kg): 68.182 Medications: Active Meds + DC'd Last 24 Hrs Levofloxacin (LEVAQUIN) 500 MG DAILY PO Potassium Chloride (KLOR-CON M20) 20 MEQ NOW ONE PO (DC) Aspirin (ASPIRIN EC) 81 MG DAILY PO Donepezil HCl (ARICEPT) 5 MG DAILY PO Memantine (NAMENDA) 5 MG DAILY PO Rivaroxaban (XARELTO) 15 MG DAILY PO Tamsulosin HCl (FLOMAX) 0.4 MG DAILY PO Atorvastatin Calcium (LIPITOR) 40 MG BEDTIME PO Benzocaine/Menthol (Cepacol Sore Throat Lozenge) 1 TAB Q4H PRN PRN MM ( CKD) Sodium Chloride (SODIUM CHLORIDE 0.9%) 1,000 ML Q13H IV Benzonatate (TESSALON PERLE) 100 MG TID PRN PRN PO Guaifenesin/Dextromethorphan (ROBITUSSIN-DM) 10 ML Q4H PRN PRN PO Nicotine (NICODERM) 21 MG DAILY TRANSDERM (CKD) Methylprednisolone Sodium Succinate (SOLU-Medrol ) 40 MG Q8HR IV Acetaminophen (TYLENOL EXTRA STRENGTH TAB) 500 M G Q4H PRN PRN PO Al Hydrox/Mg Hydrox/Simethicone (MAALOX PLUS) 30 ML Q6H PRN PRN PO Docusate Sodium (COLACE) 100 MG BID PRN PRN PO Melatonin (MELATONIN) 3 MG BEDTIME PRN PRN PO Ondansetron HCl (ZOFRAN) 4 MG Q6H PRN PRN IV Albuterol/Ipratropium (DUONEB 2.5-0.5 MG/[address]) 3 ML RTQ6H INH Budesonide (Pulmicort) 0.5 MG RTQ12H NEB Physical Exam General appearance: alert, awake, oriented Head/Eyes: atraumatic, normocephalic ENT: moist mucosal membranes Neck: no JVD Cardiovascular: CV assessment: regular rate and rhythm Respiratory: decreased breath sounds, wheezing, no distress Lower extremity: LE assessment: no edema Musculoskeletal: full range of motion Neuro/SKILL TRAINING 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: alert, oriented X 3, CN II-XII intact Skin: dry, intact Psychiatry: normal affect, normal judgment/insig ht, normal mood Diagnosis, Assessment Plan Free Text DxA P Notes Free Text DxA P Notes: IMPRESSION: 1. Chronic systolic heart failure. 2. Status post Serrano automated implantable card ioverter defibrillator. 3. Dyspnea. 4. Coronary artery disease. 5. Hypertension. 6. Dyslipidemia. RECOMMENDATIONS: Continue current medical therapy. Oxygen support as needed. at 1220 RPT #:[id number] END OF REPORT 2023-03-17 13:48:00-00:00 [facility] ([facility] Hospitalist Progress Note REPORT#:[id number] REPORT STATUS: Signed DATE:03/17/23 TIME: 1347 PATIENT: JUAN C MONGE UNIT #: [id number] ROOM/BED: [address] : 58 AGE: 62 SEX: M ATTEND: Rudy Xiao ADM AUTHOR: Jenny Meyers MD R2 * ALL edits or amendments must be made on the [employer]/computer document * Jenny Meyers 03/17/23 1348: Subjective Chief complaint: SOB, hypotension HPI: 62 yo M with PMH of COPD on 2L NC, Hypertension, Anxiety, Systolic CHF s/p AICD, Afib on xarelto, CVA and dementia presented as a transfer from [facility] for evaluation of shortness of breath. Pt reports worsening SOB over the past few days. Associate d with productive cough and nausea in the past day. Pt reports having low BP last week and was seen in the ED for this with no medication changes done. Pt unsure of his exact medications but states he takes BP meds. Pt was given steroids, nen tx, pepcid a nd levaquin prior to transfer here. Hypotensive on presentation but improved with fl uids. Labs remarkable for hyponatremia, hyperkalemia, elevated bicarb and anemia with high MCV. Pt was requiring bipap at previous facility but took it off on the way here and was on 6L NC in ED. Pt's blood gases showing marked hyp ercapnia so placed back on bipap. Pt has been admitted for further evaluati on and management. Comments: - Awake, alert, orientation unknown as p atient refuses to answer questions for evaluation - Tolerating PO, on supplemental O2 via nasal ca nnula - Able to ambulate with assistance - Denies fever/chill, nausea /vomiting, chest pain, worsening shortness of breath Review of Systems Constitutional: Denies: chills, fatigue, fev er, generalized weakness, lethargy, malaise, recent wt loss. Respiratory: Reports: productive cough (sputum), SOB, wheezin g. Denies: ANNE (dyspnea on exertion), hemoptysis, non p roductive cough, parox nocturnal dyspnea, pleurisy, pleuritic pain, pneumonia. All systems rev neg: except as noted Objective General VS/I O: Vital Signs: Date Time Temp Pulse Resp B/P B/P Pulse O2 O2 F low FiO2 Mean Ox Delivery Rate 03/17 1400 84 23 98 03/17 1300 73 18 100 03/17 1200 88 22 97 03/17 1134 98.3 03/17 1100 70 18 98 03/17 1000 74 8 98 03/17 0900 84 16 98 03/17 0800 74 16 100 03/17 0749 96 Nasal 4 36 cannula 03/17 0717 97.6 03/17 0700 72 26 98 03/17 0600 76 13 100 03/17 0500 79 18 92 03/17 0400 87 16 92 03/17 0300 85 18 95 03/17 0200 84 26 94 03/17 0100 81 25 92 03/17 0000 96 23 96 03/16 2300 85 25 95 03/16 2213 87 26 127/63 88 92 03/16 2200 83 19 95 03/16 2100 85 28 94 03/16 2020 95 Nasal 4 36 cannula 03/16 2000 88 16 97 03/16 1959 Nasal 4 cannula 03/16 1935 103 29 130/61 88 94 03/16 1918 98.8 20 03/16 1900 101 26 96 24 hour I O ending at 0700: 03/17 0700 03/16 1900 Intake Total 1200.00 1980.00 Output Total 1150 Balance 1200.00 830.00 Intake, IV 900.00 750.00 Intake, Oral 300 1230 Output, Urine 1150 PATIENT WEIGHT: Weight (lb): Weight (oz): Weight (kg): 68.182 Physical Exam General appearance: alert, awake, oriented, no a cute distress, pleasant, conversational Head/Eyes: atraumatic, clear cornea, EOMI, normo cephalic ENT: moist mucosal membranes Neck: full range of motion, non-tender, supple/n o meningismus Cardiovascular: irregular rhythm, normal capillary refill, normal heart sounds Respiratory: decreased breath sounds, on oxygen (4L NC), prolonged exp phase, rhonchi, wheezing, symmetric expansion Abdomen: non-tender, soft, no guarding Genitourinary: no urinary catheter Extremities: moves all, no calf tenderness, no c yanosis Musculoskeletal: normal inspection, painless ran ge of motion Neuro/SKILL TRAINING 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: alert, oriented X 3, normal speech Skin: dry Psychiatry: abnl judgment/in sight, normal affect, normal mood, no hallucinations Results Results: no new labs, vital signs reviewed, curr ent med profile rev'd Diagnosis, Assessment Plan Problem List/A P: 1. Acute respiratory failure with hypoxia and h ypercapnia 2. COPD with acute exacerbation 3. COPD (chronic obstructive pulmonary disease) 4. Paroxysmal atrial fibrillation 5. Chronic systolic heart failure 6. Dementia 7. Current tobacco use Free Text DxA P Notes Free text DxA P notes: Acute Respiratory Failure w/ Hypoxia Hypercapnia Acute COPD Exacerbation COPD Improved on morning evaluation, continues to be beligerant with nursing and intermittently refusing to answer questions pert aining to orientation status. Patient is pending device interrogation and echo cardiogram for evaluation of arrhythmia. PLAN - Cont. methylprednisolone 40mg IV q8hr - Cont. scheduled duonebs, budesonide - PRN benzonatate - Cont. incentive spirometery - Cont. to ween O2 as tolerated; uses 2L home O2 Hypotension Improved, known history of c hronic hypertension. Blood pressure stable over the day. PLAN - Hold all BP meds - Cont. IV methyprednisolone, adequate for BP dupree pport, no other interventions needed at this time - Consider initiating midodrine for blood pressu re support if hypotension recurrs - Avoid fluid bolusing, Due to CHF - Echo pending Hyponatremia Suspect due to HCTZ use. PLAN - Hold HCTZ - Monitor Na Paroxysmal Atrial Fibrillation Outpatient rate control for trial fibrillation u nknown at this time, takes rivaroxiban outpatient for management of embolic CVA risk. PLAN - Continuous telemetry monitoring - Cont. rivaroxiban Chronic Systolic CHF s/p AICD Patient is previously known to be on JOSE inhibitor and beta chani, but he is unsure if he is still taking these medications. PLAN - Device interrogation pending Macrocytic Anemia MCV 101 on admission. PLAN - B12 and Folate pending Dementia Alert and oriented to person, place, and time. PLAN - Cont. memantine, donepezil Current Tobacco Use Everyday user, smoking, 1-2 packs per day, durat ion unknown. Patient becomes agitated with abstinence and will become combative without cigarette smoking or nicotine patches. 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 nicotine patch Code Status: Full Code VTE Ppx: Rivaroxiban Diet: Cardiac Quality: Gen Med Crit Care VTE Prophylaxis VTE prophylaxis initiated: yes (rivaroxiban) Current Medications Current medication review: I attest that the foregoing medication list in t he medical record is true, accurate, and complete to the best of my knowled ge. BMI Screening > 25 or < 18.5 BMI status/follow-up: nml BMI,no crisis intervention counselor needed Attestations Attestation needed: teaching physician Rudy Xiao 03/17/23 1405: Attestations Teaching Physician Attestation F/U visit w/ resident: I saw the patient with the resident and . . . agree with the resident's findings and plan. await echo and aicd interrogation cont angelina has home o2 at 1511 Electronically Signed by Rudy Xiao MD on 3 at 0024 RPT #:[id number] END OF REPORT 2023-03-17 06:38:00-00:00 [facility] ([facility]) Cardiology Progress Note REPORT#:[id number] REPORT STATUS: Signed DATE:03/17/23 TIME: 637 PATIENT: JUAN C MONGE UNIT #: [id number] ROOM/BED: [address] : 58 AGE: 62 SEX: M ATTEND: Rudy Xiao ADM AUTHOR: Tyrell Mckeon MD * ALL edits or amendments must be made on the [employer]/computer document * Subjective Chief complaint: Dyspnea Patient reports: No: chest pain, palpitations, shortness of breat h. Objective General VS/I O: 24 hour I O ending at 0700: 03/17 0700 03/16 1900 Intake Total 1200.00 1980.00 Output Total 1150 Balance 1200.00 830.00 Intake, IV 900.00 750.00 Intake, Oral 300 1230 Output, Urine 1150 Vital Signs: Date Time Temp Pulse Resp B/P B/P Pulse O2 O2 F low FiO2 Mean Ox Delivery Rate 03/17 0600 76 13 100 03/17 0500 79 18 92 03/17 0400 87 16 92 03/17 0300 85 18 95 03/17 0200 84 26 94 03/17 0100 81 25 92 03/17 0000 96 23 96 03/16 2300 85 25 95 03/16 2213 87 26 127/63 88 92 03/16 2200 83 19 95 03/16 2100 85 28 94 03/16 2020 95 Nasal 4 36 cannula 03/16 2000 88 16 97 03/16 1959 Nasal 4 cannula 03/16 1935 103 29 130/61 88 94 03/16 1918 98.8 20 03/16 1900 101 26 96 03/16 1100 85 130/64 90 97 03/16 1000 83 31 141/79 100 97 03/16 0900 76 22 102/58 74 91 03/16 0801 92 26 133/64 90 94 03/16 0725 Nasal 4 cannula 03/16 0705 94 Nasal 4 cannula 03/16 0705 94 Nasal 4 cannula 03/16 0700 76 17 110/56 77 92 PATIENT WEIGHT: Weight (lb): Weight (oz): Weight (kg): 68.182 Medications: Active Meds + DC'd Last 24 Hrs Levofloxacin (LEVAQUIN) 500 MG DAILY PO Potassium Chloride (KLOR-CON M20) 20 MEQ NOW ONE PO (DC) Aspirin (ASPIRIN EC) 81 MG DAILY PO Donepezil HCl (ARICEPT) 5 MG DAILY PO Memantine (NAMENDA) 5 MG DAILY PO Rivaroxaban (XARELTO) 15 MG DAILY PO Tamsulosin HCl (FLOMAX) 0.4 MG DAILY PO Levofloxacin/Dextrose (LEVAQUIN 500MG/100ML D5W) 100 ML Q24H IV (DC) Atorvastatin Calcium (LIPITOR) 40 MG BEDTIME PO Benzocaine/Menthol (Cepacol Sore Throat Lozenge) 1 TAB Q4H PRN PRN MM ( CKD) Sodium Chloride (SODIUM CHLORIDE 0.9%) 1,000 ML Q13H IV Benzonatate (TESSALON PERLE) 100 MG TID PRN PRN PO Guaifenesin/Dextromethorphan (ROBITUSSIN-DM) 10 ML Q4H PRN PRN PO Nicotine (NICODERM) 21 MG DAILY TRANSDERM (CKD) Methylprednisolone Sodium Succinate (SOLU-Medrol ) 40 MG Q8HR IV Acetaminophen (TYLENOL EXTRA STRENGTH TAB) 500 M G Q4H PRN PRN PO Al Hydrox/Mg Hydrox/Simethicone (MAALOX PLUS) 30 ML Q6H PRN PRN PO Docusate Sodium (COLACE) 100 MG BID PRN PRN PO Melatonin (MELATONIN) 3 MG BEDTIME PRN PRN PO Ondansetron HCl (ZOFRAN) 4 MG Q6H PRN PRN IV Albuterol/Ipratropium (DUONEB 2.5-0.5 MG/[address]) 3 ML RTQ6H INH Budesonide (Pulmicort) 0.5 MG RTQ12H NEB Physical Exam Head/Eyes: atraumatic, normocephalic ENT: moist mucosal membranes Neck: no JVD Cardiovascular: CV assessment: regular rate and rhythm Respiratory: decreased breath sounds, wheezing, no distress Lower extremity: LE assessment: no edema Musculoskeletal: full range of motion Neuro/SKILL TRAINING 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: alert, oriented X 3, CN II-XII intact Skin: dry, intact Psychiatry: normal affect, normal judgment/insig ht, normal mood Results Findings/Data: Laboratory Tests 03/16 03/16 0929 0929 Chemistry Sodium (137 - 145 MMOL/L) 133 L Potassium (3.5 - 5.1 MMOL/L) 3.4 L Chloride (98 - 107 MMOL/L) 89 L Carbon Dioxide (22 - 30 MMOL/L) 37 H BUN (9 - 20 MG/DL) 16 Creatinine (0.66 - 1.25 MG/DL) 0.60 L Glomerular Filtr Rate > 60 Glucose (74 - 106 MG/DL) 139 H Calcium (8.4 - 10.2 MG/DL) 7.8 L Total Bilirubin (0.2 - 1.3 MG/DL) 0.4 AST (17 - 59 UNITS/L) 8 L ALT (0 - 49 UNITS/L) 10 Total Alk Phosphatase (38 - 126 UNITS/L) 51 Total Protein (6.2 - 7.6 G/DL) 5.1 L Albumin (3.5 - 5.0 G/DL) 3.0 L Vitamin B12 (239 - 931 pg/mL) 738 Folate (ng/mL) 4.9 Laboratory Tests 03/16 0929 Hematology WBC (3.8 - 9.8 K/MM3) 10.1 H RBC (3.95 - 5.67 M/MM3) 3.53 L Hgb (12.4 - 16.7 G/DL) 11.4 L Hct (35.9 - 49.5 %) 35.5 L MCV (81.7 - 96.1 fL) 101 H MCH (27.6 - 33.2 pg) 32.3 MCHC (32.9 - 35.5 %) 32.1 L RDW (12.1 - 15.2 %) 12.5 Plt Count (129 - 368 K/MM3) 178 MPV (7.4 - 10.4 fl) 11.7 H Neut % (Auto) (43 - 75 %) 92.4 H Lymph % (Auto) (14 - 44 %) 3.3 L Lawrence % (Auto) (4 - 13 %) 3.9 L Eos % (Auto) (0 - 6 %) 0.0 Baso % (Auto) (0 - 2 %) 0.1 Neut # (Auto) (2.0 - 7.6 K/mm3) 9.37 H Lymph # (Auto) (1.0 - 3.8 K/mm3) 0.33 L Lawrence # (Auto) (0.1 - 0.8 K/mm3) 0.40 Eos # (Auto) (0.0 - 0.2 K/mm3) 0.00 Baso # (Auto) (0.0 - 0.2 K/mm3) 0.01 Immature Gran % (0.0 - 2.0 %) 0.3 Nucleated RBC % (0 - 1.0 %) 0.0 Nucleated RBCs # (Man) (0.0 - 0.1 K/mm3) 0.00 Diagnosis, Assessment Plan Free Text DxA P Notes Free Text DxA P Notes: IMPRESSION: 1. Chronic systolic heart failure. 2. Status post Serrano automated implantable card ioverter defibrillator. 3. Dyspnea. 4. Coronary artery disease. 5. Hypertension. 6. Dyslipidemia. RECOMMENDATIONS: Continue current medical therapy. Oxygen support as needed. at 1220 RPT #:[id number] END OF REPORT 2023-03-16 20:57:00-00:00 [facility] ([facility] Cardiology Progress Note REPORT#:[id number] REPORT STATUS: Signed DATE:03/16/23 TIME: 2056 PATIENT: JUAN C MONGE UNIT #: [id number] ROOM/BED: [address] : 58 AGE: 62 SEX: M ATTEND: Rudy Xiao ADM AUTHOR: Tyrell Mckeon MD * ALL edits or amendments must be made on the [employer] document * Subjective Chief complaint: Dyspnea Patient reports: No: chest pain, palpitations, shortness of breat h. Objective General VS/I O: 24 hour I O ending at 0700: 03/16 0703/15 1900 Intake Total 1000.00 Output Total 400 Balance 600.00 Intake, IV 1000.00 Output, Urine 400 Vital Signs: Date Time Temp Pulse Resp B/P B/P Pulse O2 O2 F low FiO2 Mean Ox Delivery Rate 03/16 2020 95 Nasal 4 36 cannula 03/16 1959 Nasal 4 cannula 03/16 1935 103 29 130/61 88 94 03/16 1918 98.8 20 03/16 1900 101 26 96 03/16 1100 85 130/64 90 97 03/16 1000 83 31 141/79 100 97 03/16 0900 76 22 102/58 74 91 03/16 0801 92 26 133/64 90 94 03/16 0725 Nasal 4 cannula 03/16 0705 94 Nasal 4 cannula 03/16 0705 94 Nasal 4 cannula 03/16 0700 76 17 110/56 77 92 03/16 0600 75 18 113/69 86 99 03/16 0500 83 18 97/55 73 99 03/16 0400 81 25 110/58 78 95 03/16 0347 97.5 03/16 0300 84 21 99/59 73 95 03/16 0205 82 20 135/64 92 98 03/16 0100 84 22 118/62 84 97 03/16 0012 90 22 115/61 82 95 03/15 2341 97.9 03/15 2232 Nasal 5 cannula 03/15 2100 94 31 129/66 91 95 PATIENT WEIGHT: Weight (lb): Weight (oz): Weight (kg): 68.182 Medications: Active Meds + DC'd Last 24 Hrs Levofloxacin (LEVAQUIN) 500 MG DAILY PO Potassium Chloride (KLOR-CON M20) 20 MEQ NOW ON E PO (DC) Aspirin (ASPIRIN EC) 81 MG DAILY PO Donepezil HCl (ARICEPT) 5 MG DAILY PO Memantine (NAMENDA) 5 MG DAILY PO Rivaroxaban (XARELTO) 15 MG DAILY PO Tamsulosin HCl (FLOMAX) 0.4 MG DAILY PO Levofloxacin/Dextrose (LEVAQUIN 500MG/100ML D5W) 100 ML Q24H IV (DC) Atorvastatin Calcium (LIPITOR) 40 MG BEDTIME PO Benzocaine/Menthol (Cepacol Sore Throat Lozenge) 1 TAB Q4H PRN PRN MM ( CKD) Sodium Chloride (SODIUM CHLORIDE 0.9%) 1,000 ML Q13H IV Benzonatate (TESSALON PERLE) 100 MG TID PRN PRN PO Guaifenesin/Dextromethorphan (ROBITUSSIN-DM) 10 ML Q4H PRN PRN PO Nicotine (NICODERM) 21 MG DAILY TRANSDERM (CKD) Methylprednisolone Sodium Succinate (SOLU-Medrol ) 40 MG Q8HR IV Acetaminophen (TYLENOL EXTRA STRENGTH TAB) 500 M G Q4H PRN PRN PO Al Hydrox/Mg Hydrox/Simethicone (MAALOX PLUS) 30 ML Q6H PRN PRN PO Docusate Sodium (COLACE) 100 MG BID PRN PRN PO Melatonin (MELATONIN) 3 MG BEDTIME PRN PRN PO Ondansetron HCl (ZOFRAN) 4 MG Q6H PRN PRN IV Albuterol/Ipratropium (DUONEB 2.5-0.5 MG/[address]) 3 ML RTQ6H INH Budesonide (Pulmicort) 0.5 MG RTQ12H NEB Physical Exam General appearance: alert, awake, oriented Head/Eyes: atraumatic, normocephalic ENT: moist mucosal membranes Neck: no JVD Cardiovascular: CV assessment: regular rate and rhythm Respiratory: clear to auscultation, no distress Lower extremity: LE assessment: no edema Musculoskeletal: full range of motion Neuro/SKILL TRAINING 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: alert, oriented X 3, CN II-XII intact Skin: dry, intact Psychiatry: normal affect, normal judgment/insig ht, normal mood Results Findings/Data: Laboratory Tests 03/16 0929 Chemistry Sodium (137 - 145 MMOL/L) 133 L Potassium (3.5 - 5.1 MMOL/L) 3.4 L Chloride (98 - 107 MMOL/L) 89 L Carbon Dioxide (22 - 30 MMOL/L) 37 H BUN (9 - 20 MG/DL) 16 Creatinine (0.66 - 1.25 MG/DL) 0.60 L Glomerular Filtr Rate > 60 Glucose (74 - 106 MG/DL) 139 H Calcium (8.4 - 10.2 MG/DL) 7.8 L Total Bilirubin (0.2 - 1.3 MG/DL) 0.4 AST (17 - 59 UNITS/L) 8 L ALT (0 - 49 UNITS/L) 10 Total Alk Phosphatase (38 - 126 UNITS/L) 51 Total Protein (6.2 - 7.6 G/DL) 5.1 L Albumin (3.5 - 5.0 G/DL) 3.0 L Vitamin B12 (239 - 931 pg/mL) 738 Folate (ng/mL) 4.9 Laboratory Tests 03/16 09 Hematology WBC (3.8 - 9.8 K/MM3) 10.1 H RBC (3.95 - 5.67 M/MM3) 3.53 L Hgb (12.4 - 16.7 G/DL) 11.4 L Hct (35.9 - 49.5 %) 35.5 L MCV (81.7 - 96.1 fL) 101 H MCH (27.6 - 33.2 pg) 32.3 MCHC (32.9 - 35.5 %) 32.1 L RDW (12.1 - 15.2 %) 12.5 Plt Count (129 - 368 K/MM3) 178 MPV (7.4 - 10.4 fl) 11.7 H Neut % (Auto) (43 - 75 %) 92.4 H Lymph % (Auto) (14 - 44 %) 3.3 L Lawrence % (Auto) (4 - 13 %) 3.9 L Eos % (Auto) (0 - 6 %) 0.0 Baso % (Auto) (0 - 2 %) 0.1 Neut # (Auto) (2.0 - 7.6 K/mm3) 9.37 H Lymph # (Auto) (1.0 - 3.8 K/mm3) 0.33 L Lawrence # (Auto) (0.1 - 0.8 K/mm3) 0.40 Eos # (Auto) (0.0 - 0.2 K/mm3) 0.00 Baso # (Auto) (0.0 - 0.2 K/mm3) 0.01 Immature Gran % (0.0 - 2.0 %) 0.3 Nucleated RBC % (0 - 1.0 %) 0.0 Nucleated RBCs # (Man) (0.0 - 0.1 K/mm3) 0.00 Diagnosis, Assessment Plan Free Text DxA P Notes Free Text DxA P Notes: IMPRESSION: 1. Chronic systolic heart failure. 2. Status post Serrano automated implantable card ioverter defibrillator. 3. Dyspnea. 4. Coronary artery disease. 5. Hypertension. 6. Dyslipidemia. RECOMMENDATIONS: Continue current medical therapy. Oxygen support as needed. at 0637 RPT #:[id number] END OF REPORT 2023-03-16 08:07:00-00:00 [facility] ([facility] Hospitalist Progress Note REPORT#:[id number] REPORT STATUS: Signed DATE:03/16/23 TIME: 806 PATIENT: JUAN C MONGE UNIT #: [id number] ROOM/BED: [address] : 58 AGE: 62 SEX: M ATTEND: Rudy Xiao ADM AUTHOR: Jenny Meyers MD R2 * ALL edits or amendments must be made on the [employer]/computer document * Jenny Meyers 03/16/23 0807: Subjective Chief complaint: SOB, hypotension HPI: 62 yo M with PMH of COPD on 2L NC, Hypertension, Anxiety, Systolic CHF s/p AICD, Afib on xarelto, CVA and dementia presented as a transfer from [facility] for evaluation of shortness of breath. Pt reports worsening SOB over the past few days. Associate d with productive cough and nausea in the past day. Pt reports having low BP last week and was seen in the ED for this with no medication changes done. Pt unsure of his exact medications but states he takes BP meds. Pt was given steroids, nen tx, pepcid a nd levaquin prior to transfer here. Hypotensive on presentation but improved with fl uids. Labs remarkable for hyponatremia, hyperkalemia, elevated bicarb and anemia with high MCV. Pt was requiring bipap at previous facility but took it off on the way here and was on 6L NC in ED. Pt's blood gases showing marked hyp ercapnia so placed back on bipap. Pt has been admitted for further evaluati on and management. Comments: - Awake, alert, oriented, conversational - Tolerating PO, tolerating NC -- 4L - Able to amulate without assistance - Endorses improvement in breathing, no cough, a nd no chest pain - Denies dizziness, fever/chills, nausea/vomitin g Review of Systems Constitutional: Denies: chills, fatigue, fev er, generalized weakness, lethargy, malaise, recent wt loss. Respiratory: Reports: SOB, wheezing. Denies: ANNE (dyspnea on exertion), hemoptysis, non productive cough, parox noct urnal dyspnea, pleurisy, pleuritic pain, pneumonia, productive cough (sputum). All systems rev neg: except as noted Objective General VS/I O: Vital Signs: Date Time Temp Pulse Resp B/P B/P Pulse O2 O2 F low FiO2 Mean Ox Delivery Rate 03/16 0705 94 Nasal 4 cannula 03/16 0705 94 Nasal 4 cannula 03/16 0600 75 18 113/69 86 99 06/28 0500 83 18 97/55 73 99 03/16 0400 81 25 110/58 78 95 03/16 0347 97.5 03/16 0300 84 21 99/59 73 95 03/16 0205 82 20 135/64 92 98 03/16 0100 84 22 118/62 84 97 03/16 0012 90 22 115/61 82 95 03/15 2341 97.9 03/15 2232 Nasal 5 cannula 03/15 2100 94 31 129/66 91 95 03/15 2000 99 21 124/66 90 97 03/15 1905 95 Nasal 4 36 cannula 03/15 1900 78 17 124/66 88 99 03/15 1845 98.6 03/15 1800 99 27 123/65 89 84 03/15 1700 104 30 109/63 80 79 03/15 1600 92 88 30 03/15 1600 88 Nasal 4 36 cannula 03/15 1600 92 22 101/59 77 81 03/15 1545 97.9 03/15 1500 90 38 110/63 79 91 03/15 1400 67 21 92/55 69 95 03/15 1300 BiPAP 30 03/15 1300 89 30 108/61 79 75 03/15 1114 69 100 50 24 hour I O ending at 0700: 03/16 0700 03/15 1900 Intake Total 1000.00 Output Total 400 Balance 600.00 Intake, IV 1000.00 Output, Urine 400 PATIENT WEIGHT: Weight (lb): Weight (oz): Weight (kg): 68.182 Physical Exam General appearance: alert, awake, oriented, no a cute distress, pleasant, conversational Head/Eyes: atraumatic, EOMI, normocephalic ENT: moist mucosal membranes Neck: full range of motion, non-tender, supple/n o meningismus Cardiovascular: irregular rhythm, normal capillary refill, normal heart sounds Respiratory: decreased breath sounds, on oxygen (4L NC), prolonged exp phase, rhonchi, wheezing, symmetric expansion Abdomen: non-tender, soft, no distention, no gua rding Genitourinary: no urinary catheter Extremities: moves all, no calf tenderness, no e gabe Musculoskeletal: normal inspection, painless ran ge of motion Neuro/SKILL TRAINING 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: alert, oriented X 3, normal speech Skin: dry Psychiatry: abnl judgment/in sight, normal affect, normal mood, no hallucinations Results Findings/Data: Laboratory Tests 03/15 03/15 1640 1206 Blood Gas Puncture Site LR LR ABG pH (7.35 - 7.45 mmHg) 7.44 7.27 L ABG pCO2 (35.0 - 45.0 mmHg) 50.6 *H 79.0 *H ABG pO2 (80.0 - 100.0 mmol/L) 52.9 L 106.2 H ABG HCO3 (20.0 - 26.0 mmol/L) 33.2 H 35.4 H ABG O2 Saturation (95.0 - 100.0 %) 88.0 L 96.9 ABG Base Excess (-3.0 - 3.0 mmol/L) 7.5 H 5.8 H Mt Test (CHECK) Y Y Hgb O2 Saturation (95 - 100 %) 94.0 L Carboxyhemoglobin (0.5 - 1.5 %) 3.6 *H Methemoglobin (0.4 - 1.5 %) 0.2 L Total Hemoglobin (12.0 - 16.0 g/L) 13.0 Temperature (37 C) 37.0 37.0 O2 Delivery Device N/C BIPAP Vent Rate (/MIN) 14.0 FiO2 (%) 36 50 PEEP (cmH2O) 5.0 Pressure Support (cmH2O) 12 Results: labs reviewed, vital signs reviewed, cu rrent med profile rev'd Diagnosis, Assessment Plan Problem List/A P: 1. Acute respiratory failure with hypoxia and h ypercapnia 2. COPD with acute exacerbation 3. COPD (chronic obstructive pulmonary disease) 4. Paroxysmal atrial fibrillation 5. Chronic systolic heart failure 6. Dementia 7. Current tobacco use Free Text DxA P Notes Free text DxA P notes: Acute Respiratory Failure w/ Hypoxia Hypercapnia Acute COPD Exacerbation COPD Severe decomensation of COPD associated with acu te respiratory failure, impressive for hypoxia and h ypercapnia. IV methylprednisolone 125mg and decadron administered prior to arrival. Transitio charlette off BiPAP overnight and tolerating 4L via NC. ABG improved on repeat ABG. PLAN - Cont. methylprednisolone 40mg IV q8hr - Cont. scheduled duonebs, budesonide - PRN benzonatate - Cont. incentive spirometery - Cont. to ween O2 as tolerated; uses 2L home O2 Hypotension Improved, known history of c hronic hypertension. Present on arrival, improved BP on intake with bedside telem etry reading 100/57. Pt thinks he is on multiple rx for BP management - active r x for HCTZ noted and pt was previously on Coreg and Benazapril but unsure if he is on all 3 now. Will need to verify with his sister Joslyn who is unreachable via phone at this time PLAN - Hold all BP meds - Cont. IV methyprednisolone, adequate for BP dupree pport, no other interventions needed at this time - Consider initiating midodrine for blood pressu re support if hypotension recurrs - Avoid fluid bolusing, Due to CHF - Echo pending Hyponatremia Suspect due to HCTZ use. PLAN - Hold HCTZ - Monitor Na Paroxysmal Atrial Fibrillation Outpatient rate control for trial fibrillation u nknown at this time, takes rivaroxiban outpatient for management of embolic CVA risk. PLAN - Continuous telemetry monitoring - Cont. rivaroxiban - Verify medication list with his sister, when c ontacted Chronic Systolic CHF s/p AICD Patient is previously known to be on JOSE inhibitor and beta chani, but he is unsure if he is still taking these medications. PLAN - Verify with sister and resume, if active Macrocytic Anemia MCV 101 on admission. PLAN - B12 and Folate pending Dementia Alert and oriented to person, place, and time. PLAN - Cont. memantine, donepezil Current Tobacco Use Everyday user, smoking, 1-2 packs per day, durat ion unknown. Patient becomes agitated with abstinence and will become combative without cigarette smoking or nicotine patches. 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 nicotine patch Code Status: Full Code VTE Ppx: Rivaroxiban Diet: Cardiac Quality: Gen Med Crit Care VTE Prophylaxis VTE prophylaxis initiated: yes (rivaroxiban) Current Medications Current medication review: I attest that the foregoing medication list in t he medical record is true, accurate, and complete to the best of my knowled ge. BMI Screening > 25 or < 18.5 BMI status/follow-up: nml BMI,no crisis intervention counselor needed Attestations Attestation needed: teaching physician Rudy Xiao 03/16/232006: Attestations Teaching Physician Attestation F/U visit w/ resident: I saw the patient with the resident and . . . agree with the resident's findings and plan. echo cards folloing aicd interrogation cont xarelto has home o2 at 1416 Electronically Signed by Rudy Xiao MD on 3 at 2007 RPT #:[id number] END OF REPORT 2023-03-15 20:17:00-00:00 [id number] [id number] PATIENT NAME: JUAN C MONGE ADMIT DATE: 03/15/23 ACCOUNT NO: [id number] ROOM NO: Z.347 AGE: 62 REPORT TYPE: ELECTROCARDIOGRAM SEX: M ADMITTING PHYSICIAN:Rudy Xiao MD ATTENDING PHYSICIAN:Rudy Xiao MD Order: [id number] Test Reason : CAD Test Date/Time Stamp: TueMar 15 2023 20:17:48 Blood Pressure : / mmHG Vent. Rate : 093 BPM Atrial Rate : 093 BPM P-R Int : 140 ms QRS Dur : 090 ms QT Int : 362 ms P-R-T Axes : 082 071 079 degree s QTc Int : 450 ms Normal sinus rhythm Normal ECG When compared with ECG of 19-JUN-2020 13:14, Vent. rate has increased BY 33 BPM T wave amplitude has increased in Inferior leads Confirmed by OMID TENORIO ([id number]) on 03/16/2023 7:34:29 AM Referred By: Self Referred Confirmed by:OMID JORGENSEN at 0734 PATIENT NAME: JUAN C MONGE 2023-03-15 16:03:00-00:00 [id number] [id number] [place] [address] PATIENT NAME: JUAN C MONGE ADMIT DATE: 03/15/23 ACCOUNT NO: [id number] ROOM NO: Z.347 AGE: 62 REPORT TYPE: CONSULTATION REPORT SEX: M ADMITTING PHYSICIAN:Rudy Xiao MD ATTENDING PHYSICIAN:Rudy Xiao MD CONSULTATION DATE: 03/15/2023 REFERRING PHYSICIAN: Gurinder North MD REASON FOR CONSULTATION: I was asked to evaluate this patient for shortness of breath. HISTORY OF PRESENT ILLNESS: This is a 62-year-ol d male with a history of chronic systolic heart failu re, COPD, status post Serrano AICD, who presented to the Emergency Room at [facility] in [facility] with complaints of increasing shortness of breath. He denies chest pain. He has had increasing shortness of breath over the last few days. He h as had a productive cough and nausea. He has also noted some hypotension. Curr ently, no chest pain. He is breathing better. PAST MEDICAL HISTORY: COPD, on home O2, hyperten margy, hyperlipidemia, atrial fibrillation, chronic systolic heart failure, CV A, dementia. PAST SURGICAL HISTORY: Status post appendectomy, status post Serrano AICD. FAMILY HISTORY: Positive for diabetes. SOCIAL HISTORY: No alcohol. Continues to smoke d aily. ALLERGIES: NKDA. HOME MEDICATIONS: Donepezil, atorvastati n, memantine, rivaroxaban, tamsulosin, carvedilol, aspirin, omeprazole, potassium. REVIEW OF SYSTEMS: CONSTITUTIONAL: No complaints of fever or chills . ENMT: No complaints of headache. EYES: No complaints of blurred vision. RESPIRATORY: Shortness of breath is noted that h as been progressive. CARDIOVASCULAR: No complaints of chest pain or p alpitations. GASTROINTESTINAL: No complaints of nausea or vom iting. GENITOURINARY: No complaints urinary frequency o r dysuria. MUSCULOSKELETAL: No complaints of joint pain. SKIN: No complaints of skin rash. NEUROLOGIC: No complaints of focal weakness. PHYSICAL EXAMINATION: PATIENT NAME: JUAN C MONGE 20 GENERAL: A well-nourished male, in no acute dist ress. VITAL SIGNS: Temperature 97.8, blood pressure 11 0/63, pulse 90, respiratory rate 38, O2 sats 91%. ENMT: Atraumatic, normocephalic. RESPIRATORY: Normal effort. Diminished breath so unds bilaterally with a prolonged expiratory phase. Just scattered expir atory wheezes. CARDIOVASCULAR: Normal S1 and S2. No S3 or S4. NECK: JVP is normal. No carotid bruits. EXTREMITIES: No edema. NEUROLOGIC: Cranial nerves II-XII are intact. No focal motor deficits noted. Telemetry shows sinus rhythm. LABORATORY DATA: White blood cell count 7.4; hem oglobin 11.5; platelets 174,000. Sodium 128, potassium 5.4, chlo ride 90, CO2 of 36, BUN 17, creatinine 0.7, glucose 109, calcium 7.7. Troponin I less t buck 0.012. NT-proBNP is 79. Blood gas: 7.27/79/106.2/96.9%/bicarbonate 35.4. IMPRESSION: 1. Chronic systolic heart failure. 2. Status post Serrano automated implantable card ioverter defibrillator. 3. Dyspnea. 4. Coronary artery disease. 5. Hypertension. 6. Dyslipidemia. RECOMMENDATIONS: 1. A 2D echocardiogram. 2. AICD interrogation. 3. Continue current medical therapy. 4. Oxygen support as needed. Dictated By: Tyrell Mckeon MD Date Dictated: 03/15/2023 16:03:59 Date Transcribed: 03/15/2023 16:59:18 GSP/REQ Receipt ID: [id number] Authenticated by Tyrell Mckeon MD On 03/15/20 06:28:21 PM at 0628 PATIENT NAME: JUAN C MONGE 2023-03-15 10:52:00-00:00 [facility] Physical REPORT#:[id number] REPORT STATUS: Signed DATE:03/15/23 TIME: 105 PATIENT: JUAN C MONGE UNIT #: [id number] ROOM/BED: [address] : 58 AGE: 62 SEX: M ATTEND: Rudy Xiao ADM AUTHOR: Clare Velazquez * ALL edits or amendments must be made on the [employer]/computer document * Clare Velazquez 03/15/23 1052: History of Present Illness HPI Chief complaint: SOB, hypotension HPI: 62 yo M with PMH of COPD on 2L NC, Hypertension, Anxiety, Systolic CHF s/p AICD, Afib on xarelto, CVA and dementia presented as a transfer from [facility] for evaluation of shortness of breath. Pt reports worsening SOB over the past few days. Associate d with productive cough and nausea in the past day. Pt reports having low BP last week and was seen in the ED for this with no medication changes done. Pt unsure of his exact medications but states he takes BP meds. Pt was given steroids, nen tx, pepcid a nd levaquin prior to transfer here. Hypotensive on presentation but improved with fl uids. Labs remarkable for hyponatremia, hyperkalemia, elevated bicarb and anemia with high MCV. Pt was requiring bipap at previous facility but took it off on the way here and was on 6L NC in ED. Pt's blood gases showing marked hyp ercapnia so placed back on bipap. Pt has been admitted for further evaluati on and management. History Additional medical history: COPD on home oxygen, hypertension, hyperlipidemi a, A-fib on xarelto, systolic CHF, CVA, Dementia Past surgical history: Reports: Appendectomy, ICD. Family history: Reports: Diabetes. Alcohol use: Denies EtOH use Drug use: Denies recreational drugs Smoking status for patients 13 years old or older: Current every day smoker (1 to 2 packs/day ) Medication/Allergy-Vaccine Hx Medications: Home Medications: Medication Dose/Rte/Freq Days Qty Entered Last Max Daily Dose Reviewed DONEPEZIL (ARICEPT) #90 - SIG Obtained 03/15/23 From Strength: 5 [address] TAB DrFirst 1121 ATORVASTATIN (LIPITOR) 40 MG PO BEDTIME 3 Strength: 40 MG TAB 1122 MEMANTINE (NAMENDA) 5 MG PO DAILY 03/15/23 Strength: 5 MG TAB 1122 RIVAROXABAN (XARELTO) 15 MG PO DAILY 03/15/23 Strength: 15 MG TAB 1122 [Breztri Aerosphere 1] #11 - SIG Obtained From Strength: DrFirst 1122 TAMSULOSIN ER (FLOMAX) #30 - SIG Obtained 03/15 From Strength: 0.[address]First 1123 CAP.SR.24H CARVEDILOL (COREG) 3.125 MG PO BID 03/15/23 Strength: 3.125 MG TAB 1123 ASPIRIN EC (ECOTRIN) 81 MG PO DAILY 06/19/20 Strength: 81 MG TAB.EC 1105 OMEPRAZOLE ER 40 MG PO DAILY 06/19/20 (PriLOSEC) Strength: 40 MG CAP.DR 1106 POTASSIUM CHLORIDE ER 10 MEQ PO BID 06/19/20 (MICRO-K) 1106 Strength: 10 MEQ CAP.SA BENAZEPRIL (LOTENSIN) 10 MG PO DAILY 06/19/20 Strength: 10 MG TAB 1107 HYDROCHLOROTHIAZIDE DOSE 20MG DAILY 06/19/20 (HYDRODIURIL) 1108 Strength: 25 MG TAB IPRATROPIUM 500 MCG INH RTQ6H 06/19/20 (ATROVENT 0.02%) 1109 Strength: 0.2 MG/ML (0.02 %) NEB ALBUTEROL 2.5 MG NEB 06/19/20 (ALBUTEROL 2.5 MG/3 ML RTQ4H PRN PRN 1110 (75mL)) WHEEZING Strength: 2.5 MG/3 ML (0.083 %) NEB Current Hospital Medications: Anti-Infective Agents Sig/Imer Start time Last Medication Dose Route Stop Time Status Admin Levofloxacin/Dextrose 100 ML Q24H 03/16 0000 UN V (LEVAQUIN 500MG/ IV 03/23 0001 100ML D5W) Autonomic Drugs Sig/Imer Start time Last Medication Dose Route Stop Time Status Admin Donepezil HCl 5 MG DAILY 03/16 0900 AC (ARICEPT) PO 04/14 1126 Nicotine 21 MG DAILY 03/15 1520 UNVr (NICODERM) TRANSDERM 04/14 1521 Midodrine 10 MG ONCE ONE 03/15 1335 CAN (PROAMATINE) PO 03/15 1336 Albuterol Sulfate 5 MG X1ED STA 03/15 1113 DC (ALBUTEROL SULFATE) NEB 03/15 1114 Albuterol/Ipratropium 3 ML RTQ6H 03/15 1000 AC 03/15 (DUONEB 2.5-0.5 MG/3 INH 04/14 1001 1024 ML SOLN) Albuterol Sulfate 15 MG X1ED STA 03/15 0632 DC 03/15 (ALBUTEROL SULFATE) NEB 03/15 0633 0642 Blood Formation,Coagulation Sig/Imer Start time Last Medication Dose Route Stop Time Status Admin Rivaroxaban 15 MG DAILY 03/16 0900 AC (XARELTO) PO 04/15 0901 Cardiovascular Drugs Sig/Imer Start time Last Medication Dose Route Stop Time Status Admin Tamsulosin HCl 0.4 MG DAILY 03/16 0900 AC (FLOMAX) PO 04/14 1131 Atorvastatin Calcium 40 MG BEDTIME 03/15 2100 A C (LIPITOR) PO 04/14 2101 Central Nervous System Agents Sig/Imer Start time Last Medication Dose Route Stop Time Status Admin Aspirin 81 MG DAILY 03/16 0900 AC (ASPIRIN EC) PO 04/15 0901 Memantine 5 MG DAILY 03/16 0900 AC (NAMENDA) PO 04/15 0901 Acetaminophen 500 MG Q4H PRN PRN 03/15 1005 AC (TYLENOL EXTRA PO 04/14 1006 STRENGTH TAB) Electrolytic, Caloric, And Ness Sig/Imer Start time Last Medication Dose Route Stop Time Status Admin Sodium Chloride 1,000 ML BOLUS ONCE ONE 03/15 0745 DC 03/15 (SODIUM CHLORIDE IV 03/15 0746 0746 0.9%) Eye, Ear, Nose And Throat (Een Sig/Imer Start time Last Medication Dose Route Stop Time Status Admin Budesonide 0.5 MG RTQ12H 03/15 1000 AC 03/15 (Pulmicort) NEB 04/14 1001 1024 Gastrointestinal Drugs Sig/Imer Start time Last Medication Dose Route Stop Time Status Admin Al Hydrox/Mg Hydrox/ 30 ML Q6H PRN PRN 03/15 10 05 AC Simethicone PO 04/14 1006 (MAALOX PLUS) Docusate Sodium 100 MG BID PRN PRN 03/15 1005 A C (COLACE) PO 04/14 1006 Ondansetron HCl 4 MG Q6H PRN PRN 03/15 1005 AC (ZOFRAN) IV 04/14 1006 Hormones And Synthetic Substit Sig/Imer Start time Last Medication Dose Route Stop Time Status Admin Methylprednisolone 40 MG Q8HR 03/15 1300 AC Sodium Succinate IV 04/14 1301 1404 (SOLU-Medrol) Miscellaneous Therapeutic Agen Sig/Imer Start time Last Medication Dose Route Stop Time Status Admin Melatonin 3 MG BEDTIME PRN PRN 03/15 1005 AC (MELATONIN) PO 04/14 1006 Allergies: Coded Allergies: No Known Allergies (06/19/20) Review of Systems Respiratory: Reports: ANNE (dyspnea on exertion), productive c ough (sputum), SOB, wheezing. Cardiovascular: Denies: chest pain, edema, orthopnea, palpitatio ns. All systems rev neg: except as marked Objective General VS/I O: Vital Signs: Date Time Temp Pulse Resp B/P B/P Pulse O2 O2 F low FiO2 Mean Ox Delivery Rate 03/15 1500 90 38 110/63 79 91 03/15 1400 67 21 92/55 69 95 03/15 1300 89 30 108/61 79 75 03/15 1114 69 100 50 03/15 0931 37.1 76 19 100/59 72 100 Nasal 6 cannula 03/15 0848 83/51 61 03/15 0645 72 16 90/53 65 98 Room air 03/15 0611 96 Nasal 2 cannula 03/15 0610 80 03/15 0534 Nasal 2 cannula 03/15 0521 36.9 78 20 92/58 69 99 24 hour I O ending at 0700: 03/15 0700 03/14 1900 Intake Total Output Total Balance Patient 68.182 kg Weight Weight Stated/Reported Measurement Method PATIENT WEIGHT: Weight (lb): Weight (oz): Weight (kg): 68.182 Physical Exam General appearance: alert, awake, oriented Head/Eyes: atraumatic, EOMI, normal conjunctiva/ sclera, normocephalic, PERRL ENT: moist mucosal membranes, normal ear left, n ormal ear right, normal nose Neck: non-tender, supple/no meningismus, no mass es or swelling Cardiovascular: irregular rhythm, normal capillary refill, normal heart sounds Respiratory: decreased breat h sounds, on oxygen, wheezing, symmetric expansion, poor air movement, mild distress Abdomen: non-tender, normal bowel sounds, soft, no guarding Extremities: moves all, no cyanosis, no edema Musculoskeletal: normal inspection, no muscle sp asm, no paraspinal tenderness Neuro/SKILL TRAINING 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: alert, oriented X 3, normal speech, n o motor deficits, no sensory deficits Skin: dry, normal color, normal temperature Psychiatry: abnl judgment/insight, no hallucinat ions, irritable mood Results Findings/Data: Laboratory Tests 03/15 03/15 1206 0711 Blood Gas Puncture Site LR UNKNOWN ABG pH (7.35 - 7.45 mmHg) 7.27 L ABG pCO2 (35.0 - 45.0 mmHg) 79.0 *H ABG pO2 (80.0 - 100.0 mmol/L) 106.2 H ABG HCO3 (20.0 - 26.0 mmol/L) 35.4 H ABG O2 Saturation (95.0 - 100.0 %) 96.9 ABG Base Excess (-3.0 - 3.0 mmol/L) 5.8 H Mt Test (CHECK) Y VBG pH (7.35 - 7.45) 7.21 L VBG pCO2 (35.0 - 45.0 mmHg) 93.7 *H VBG pO2 (-40 mmHg) 38 VBG HCO3 (20 - 26 meq/L) 37 H VBG O2 Sat (Calc) (72 - 77 %) 57 L VBG Base Excess (-3.0 - 3.0 MMOL/L) 4.8 H VBG Temperature (C) 37.0 Hgb O2 Saturation (95 - 100 %) 94.0 L 63.9 *L Carboxyhemoglobin (0.5 - 1.5 %) 3.6 *H 6.2 *H Methemoglobin (0.4 - 1.5 %) 0.2 L 0.0 L Total Hemoglobin (12.0 - 16.0 g/L) 13.0 15.1 Temperature (37 C) 37.0 O2 Delivery Device BIPAP RM AIR Vent Rate (/MIN) 14.0 FiO2 (%) 50 21 PEEP (cmH2O) 5.0 Pressure Support (cmH2O) 12 Laboratory Tests 03/15 03/15 0632 0632 Chemistry Sodium (137 - 145 MMOL/L) 128 L Potassium (3.5 - 5.1 MMOL/L) 5.4 H Chloride (98 - 107 MMOL/L) 90 L Carbon Dioxide (22 - 30 MMOL/L) 36 H Anion Gap (14 - 24 MMOL/L) 7 L BUN (9 - 20 MG/DL) 17 Creatinine (0.66 - 1.25 MG/DL) 0.70 Glomerular Filtr Rate > 60 Glucose (74 - 106 MG/DL) 109 H Calcium (8.4 - 10.2 MG/DL) 7.7 L Phosphorus (2.5 - 4.5 MG/DL) 3.5 Magnesium (1.6 - 2.3 MG/DL) 1.8 Troponin I (0.012 - 0.033 NG/ML) < 0.012 L NT-Pro-B Natriuret Pep (pg/mL) 79.0 Laboratory Tests 03/15 0632 Hematology WBC (3.8 - 9.8 K/MM3) 7.4 RBC (3.95 - 5.67 M/MM3) 3.53 L Hgb (12.4 - 16.7 G/DL) 11.5 L Hct (35.9 - 49.5 %) 35.8 L MCV (81.7 - 96.1 fL) 101 H MCH (27.6 - 33.2 pg) 32.6 MCHC (32.9 - 35.5 %) 32.1 L RDW (12.1 - 15.2 %) 12.4 Plt Count (129 - 368 K/MM3) 174 Neut # (Auto) (2.0 - 7.6 K/mm3) 6.76 Lymph # (Auto) (1.0 - 3.8 K/mm3) 0.51 L Lawrence # (Auto) (0.1 - 0.8 K/mm3) 0.10 Eos # (Auto) (0.0 - 0.2 K/mm3) 0.00 Baso # (Auto) (0.0 - 0.2 K/mm3) 0.01 Nucleated RBCs # (Man) (0.0 - 0.1 K/mm3) 0.00 Radiology data: Recent Impressions: RADIOLOGY - XR CHEST 1V 03/15 0647 Report Impression - Status: SIGNED Entered: 03/15/2023 0702 IMPRESSION: No acute radiographic abnormality Impression By: [email or web address] - Miroslava Cote MD Diagnosis, Assessment Plan Free Text DxA P Notes Free Text DxA P Notes: Assessment/Plan #Acute COPD exacerbation IV steroids, given solu-medrol 125mg and decadro n prior to arrival here. Will continue with 40mg q8hr Neb tx, scheduled duonebs and budesonide PRN antitussives #Acute on chronic respiratory failure with hyper capnia Transition pt from NC to bipap. Pt is th reatening non compliance in regards to bipap use as he is uncomfortable with it. Explai charlette to pt importance of bipap use at this time. Pt using 2L NC at home. Repeat ABG later today Encourage incentive spirometer use when taking b reaks off bipap Manage COPD as above Bicarb elevated on labs likely as a compensatory measure #Hypotension, improved #Hx of hypertension Present on arrival, improved on my evaluation wi th BP at bedside 100/57 Pt thinks he is on multiple rx for BP management - active rx for HCTZ noted and pt was previously on Coreg a nd Benazapril but unsure if he is on all 3 now. Will need to verify with his sister Joslyn who is unreac hable via phone at this time Hold all BP meds Pt is on steroids which should support BP at thi s time. Given 1L NS bolus in ED, frandy l hold off on further fluid and use as needed based on clinical volume assessment due to hx of CHF. Consider midodrine as needed Order Echo #Hyponatremia Suspect due to HCTZ use. Hold HCTZ and monitor s odium levels #Paroxysmal Afib Resume Xarelto. He is unsure of being on rate co ntrol med at this time. Will need to verify med list with his sister when vera wade Keep on telemetry #Chronic systolic CHF s/p AICD Pt previously known to be on JOSE-I and beta chani but he is unsure if still on this. will verify with sister and resume if curr ent #Macrocytic anemia Order folate and B12 in AM #Dementia Resume Memantine and Donepezil Pt is alert and oriented x3 #Tobacco abuse crisis intervention counselor on cessation. start nicotine patch VTE ppx: Xarelto Full Code Dispo: likely dc home, pending clinical improvem ent Time spent is > 60 mins DOS: 03/15/2023 Quality: Gen Med Crit Care VTE Prophylaxis VTE prophylaxis initiated: yes Current Medications Unable to obtain: Unable to obtain an accurate home medica tion list at this time. The patient is in an urgent or emergent medical situation where time is of the essence. To delay treatment would jeopardize the pat ient's health status on the day of the encounter. BMI Screening > 25 or < 18.5 Patient's BMI: Current BMI: 21.6 BMI status/follow-up: nml BMI,no crisis intervention counselor needed Rudy Xiao 03/15/232232: Attestations Teaching Physician Attestation 1st visit w/ resident: I was present with the resident during the histo ry and exam. I discussed the case with the resident and . . . agree with the findings and plan as documented i n the resident's note. echo cards folloing aicd interrogation cont xarenetta has home o2 Electronically Signed by Rudy Xiao MD on 3 at 2235 Electronically Signed by Clare Velazquez on 02/18 04/10 at 2343 RPT #:[id number] END OF REPORT 2023-03-15 07:02:00-00:00 [facility] ([facility] EMERGENCY PROVIDER REPORT REPORT#:[id number] REPORT STATUS: Signed DATE:03/15/23 TIME: 0702 PATIENT: JUAN C MONGE UNIT #: [id number] [facility]BED[facility] AGE: 62 SEX: M PCP PHYS: Undefined Provider SERVICE AUTHOR: Royce Davison MD LOCATION: [facility] * ALL edits or amendments must be made on the [employer]/computer document * See Addendum HPI-General Illness Free Text HPI Notes Free Text HPI Notes 62-year-old female past medical history COPD, hypertension, hyperlipidemia, A- fib on [facility]. Compla ining of shortness of breath over the last 2 days accompa nied by productive cough with denies fever, chills, chest vomiting, diarrhea, dysuria or any other c omplaints at this time. Was given 125 of Solu-Medrol as well as nebulizers, Decadron, Pepcid, and 500 of Levaquin at the outlying facility. Was reportedl y in respiratory distress and placed on BiPAP. Patient rep ortedly demanded for BiPAP to be taken off in route to this ER and on initial evaluation, he is comf ortable on nasal cannula. General Initial Greet Date/Time 03/15/23 0525 Presentation Chief Complaint Shortness of breath Review of Systems Free Text ROS Notes Free Text ROS Notes Constitutional: Denies: Chills, Fatigue. Eyes: Denies: Blurry Vision, Diplopia. ENT: Denies: Sinus problem, Sore throat. Respiratory: +Cough, Shortness of breath. Cardiovascular: Denies: Chest pain, Palpitations. GI: Denies: Abdominal pain, Nausea, Vomiting. : Denies: Dysuria, Flank pain. Musculoskeletal: Denies: Extremity Pain, Laceration. Hematologic Denies: Bleeding. Neurologic Denies: Change LOC, Confusion, Slurred speech. Past Medical History - Adult Stated Complaint COPD HYPOTENSION Allergies Coded Allergies: No Known Allergies (06/19/20) Home Medications Active Scripts CEPHALEXIN (KEFLEX) 500 MG PO TID CEPHALEXIN (KEFLEX) 500 MG PO TID #15 CAPS Prov: 06/20/20 ACETAMINOPHEN/CODEINE (TYLENOL WITH CODE INE #3 300/30 MG) 1 TAB PO Q4H PRN PRN ACUTE PAIN ACETAMINOPHEN/CODEINE (TYLENOL WITH CODEINE #3 300/30 MG) 1 TAB PO Q4H PRN PRN ACUTE PAIN #10 TABS Prov: 06/20/20 Reported Medications ASPIRIN EC (ECOTRIN) 81 MG PO DAILY CARVEDILOL (COREG) 25 MG PO BID MEALS OMEPRAZOLE ER (PriLOSEC) 40 MG PO DAILY busPIRone (BUSPIRONE) 30 MG PO BID POTASSIUM CHLORIDE ER (MICRO-K) 10 MEQ PO BID BENAZEPRIL (LOTENSIN) 10 MG PO DAILY HYDROCHLOROTHIAZIDE (HYDRODIURIL) traMADol (ULTRAM) 50 MG PO DAILY PRN PRN PAIN/AN XIETY IPRATROPIUM (ATROVENT 0.02%) 500 MCG INH RTQ6H ALBUTEROL (ALBUTEROL 2.5 MG/3 ML (75mL)) 2.5 MG NEB RTQ4H PRN PRN WHEEZING Calculated Suicide Risk (nurs) No risk Additional Medical History COPD, hypertension, hyperlipidemia, A-fib Smoking status for patients 13 years old or olde r: Unknown,if ever smoked Physical Exam Vital Signs Vital Signs First Documented: Result Date Time Pulse Ox 99 03/15 0521 B/P 92/58 03/15 0521 B/P Mean 69 03/15 0521 Temp 36.9 03/15 0521 Pulse 78 03/15 0521 Resp 20 03/15 0521 O2 Delivery Nasal cannula 03/15 0534 O2 Flow Rate 2 03/15 0534 Last Documented: Result Date Time Pulse Ox 98 03/15 0645 B/P 90/53 03/15 0645 B/P Mean 65 03/15 0645 O2 Delivery Room air 03/15 0645 Pulse 72 03/15 0645 Resp 16 03/15 0645 O2 Flow Rate 2 03/15 0611 Temp 36.9 03/15 0521 Review of Vital Signs Reviewed Free Text PE Notes Free Text PE Notes General/Const: Awake, No acute distress Head: Atrauamtic, Normocephalic Eyes: EOMI. Anicteric sclerae. ENT: Airway patent. Atraumatic. Resp/Chest: Speaking full sentences without conversational dyspnea or acute respiratory distress. Lung sounds fairly diminished bilatera lly. Cardiovascular: Heart rate NL, Regular rhythm, No gallops/rubs appreciated. Abdomen/GI: Non-tender in all abdominal quadrants. No guarding, No rebound. No distention Skin: Warm, Dry Neurologic: Alert Oriented X3, Speech normal. Interpretation Diagnostics Lab Results Interpretation Results Laboratory Tests 03/15/23 0632: [Embedded Image Not Available] Laboratory Tests: 03/15 632 Chemistry Sodium (137 - 145 MMOL/L) 128 L Potassium (3.5 - 5.1 MMOL/L) 5.4 H Chloride (98 - 107 MMOL/L) 90 L Carbon Dioxide (22 - 30 MMOL/L) 36 H Anion Gap (14 - 24 MMOL/L) 7 L BUN (9 - 20 MG/DL) 17 Creatinine (0.66 - 1.25 MG/DL) 0.70 Glomerular Filtr Rate > 60 Glucose (74 - 106 MG/DL) 109 H Calcium (8.4 - 10.2 MG/DL) 7.7 L Troponin I (0.012 - 0.033 NG/ML) < 0.012 L NT-Pro-B Natriuret Pep (pg/mL) 79.0 Hematology WBC (3.8 - 9.8 K/MM3) 7.4 RBC (3.95 - 5.67 M/MM3) 3.53 L Hgb (12.4 - 16.7 G/DL) 11.5 L Hct (35.9 - 49.5 %) 35.8 L MCV (81.7 - 96.1 fL) 101 H MCH (27.6 - 33.2 pg) 32.6 MCHC (32.9 - 35.5 %) 32.1 L RDW (12.1 - 15.2 %) 12.4 Plt Count (129 - 368 K/MM3) 174 Neut # (Auto) (2.0 - 7.6 K/mm3) 6.76 Lymph # (Auto) (1.0 - 3.8 K/mm3) 0.51 L Lawrence # (Auto) (0.1 - 0.8 K/mm3) 0.10 Eos # (Auto) (0.0 - 0.2 K/mm3) 0.00 Baso # (Auto) (0.0 - 0.2 K/mm3) 0.01 Nucleated RBCs # (Man) (0.0 - 0.1 K/mm3) 0.00 Recent Impressions: RADIOLOGY - XR CHEST 1V 03/15 0647 Report Impression - Status: SIGNED Entered: 03/15/2023 0702 IMPRESSION: No acute radiographic abnormality Impression By: SylviaAGAve - Miroslava Cote MD Re-Evaluation MDM Free Text MDM Notes Free Text MDM Notes History and physical as above. Labs with mild el ectrolyte derangements including hyponatremia and hyperkalemia. Given f luids. Chest x-ray with no acute abnormality noted. Given additional breath ing treatments for diminished lung sounds. Discussed patient with and admitted to the inpatient medicine service for further management/workup. ED Course Medication(s) Ordered Medication(s) Ordered: Autonomic Drugs Sig/Imer Start time Last Medication Dose Route Stop Time Status Admin Albuterol Sulfate 15 MG X1ED STA 03/15 0632 DC 03/15 NEB 03/15 0633 0642 Patient Discharge Departure Vital Signs/Condition Vital Signs First Documented: Result Date Time Pulse Ox 99 03/15 0521 B/P 92/58 03/15 0521 B/P Mean 69 03/15 0521 Temp 36.9 03/15 0521 Pulse 78 03/15 0521 Resp 20 03/15 0521 O2 Delivery Nasal cannula 03/15 0534 O2 Flow Rate 2 03/15 0534 Last Documented: Result Date Time Pulse Ox 98 03/15 0645 B/P 90/53 03/15 0645 B/P Mean 65 03/15 0645 O2 Delivery Room air 03/15 0645 Pulse 72 03/15 0645 Resp 16 03/15 0645 O2 Flow Rate 2 03/15 0611 Temp 36.9 03/15 0521 All vital signs available at the time of this en try have been reviewed. Clinical Impression Clinical Impression Primary Impression: COPD with acute exacerbation Secondary Impressions: Hx of acute respi ratory distress syndrome, Hyponatremia Disposition Decision Hospitalize Hosp Physician Name Rudy Xiao MD Request Time 713 Request Date 03/15/23 )( Accepts Hospitalization Yes )( Accepted Time 713 )( Accepted Date 03/15/23 Electronically Signed by Royce Davison MD on at 1029 Addendum 1: 03/15/23 1029 by Royce Davison MD Patient Addendum Addendum Interpretation of EKG perfor med at 0 636: Rate 71, normal sinus rhythm, baseline wander present but no significant ST seg ment T wave abnormality definitive for acute ischemia. Electronically Signed by Royce Davison MD on at 1029 Addendum 2: 03/15/23 1240 by Royce Davison MD Patient Addendum Addendum Repeat VBG w/ improvement, p H 7.27, pCO2 79. On reassessment, awake, alert, not somnolent. Discussed with inpatient team, plan f or continued BiPAP on IMCU. Electronically Signed by Royce Davison MD on at 1240 Addendum 3: 03/15/231917 by Royce Davison MD Patient Addendum Addendum Authorized and Performed by: Royce santa MD Total critical care time: 35 minutes For acute hypercapnic hypoxic respiratory failur e requiring BiPAP and serial reassessments. Due to a high probability of clinically signific ant, life threatening deterioration, the patient required my highest l evel of preparedness to intervene emergently and I p ersonally spent this critical care time directly and personally managing the patient. This critical c are time included obtaining a history; examining the patie nt; pulse oximetry; ordering and review of studies; arranging urgent treatment with development of a management plan; BIPAP management, evaluation of sherice correa's response to treatment; frequent reassessment ; and, discussions with other providers. This critical care time was performed to assess and manage the high probability of imminent, life-threatening deterioration that could result in multi-organ failure including specifically respiratory failu re and potential respiratory arrest. It was exclusive of separately billable procedures and treating other patients and teaching time. Electronically Signed by Royce Davison MD on at 1918 RPT #:[id number] END OF REPORT 2020-06-20 06:17:00-00:00 [facility] ([facility] Cardiology Progress Note REPORT#:[id number] REPORT STATUS: Signed DATE:06/20/20 TIME: 616 PATIENT: JUAN C MONGE UNIT #: [id number] [facility] AGE: 59 SEX: M ATTEND: Geoffrey Mckeon MD ADM AUTHOR: Tyrell Mckeon MD * ALL edits or amendments must be made on the [employer]/computer document * Subjective Chief Complaint: AICD Patient [...] low FiO2 Mean Ox Delivery Rate 06/20 528 97.9 72 18 91/62 71.7 91 Room air 06/19 2222 98.1 76 18 109/70 82.7 95 Nasal [...] Potassium Chloride 10 MEQ BID PO Ipratropium Zahl 0.5 MG RTQ6H INH Cefazolin Sodium 1,000 [...] no edema Musculoskeletal: full range of motion Neuro/SKILL TRAINING 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: alert, oriented X 3, CN II-XII intact [...] % (Auto) (14 - 44 %) 27.8 Lawrence % (Auto) (4 - 13 %) 8.6 Eos % (Auto) (0 - 6 %) 1.7 Baso % (Auto) (0 - 2 %) 0.6 Neut # (Auto) (2.0 - 7.6 K/mm3) 3.99 Lymph # (Auto) (1.0 - 3.8 K/mm3) 1.82 Lawrence # (Auto) (0.1 - 0.8 K/mm3) 0.56 [...] Report Impression - Status: SIGNED Entered: 06/19/2020 1622 IMPRESSION: The right lung apex is excluded from the field-o f-view. No acute cardiopulmonary abnormality is identified. Impression By: [email or web address] - Latanya Marshall MD Diagnosis, Assessment Plan Free Text DxA P Notes Free Text DxA P Notes: IMP: Chronic systolic heart failure s/p [employer] Cory AICD - single lead PLAN: AICD interrogation d/c home if stable. at 0818 RPT #:[id number] END OF REPORT 2020-06-19 16:03:00-00:00 [id number] [place] [address] PATIENT NAME: JUAN C OMNGE ADMIT DATE: 06/19/20 ACCOUNT NO: [id number] ROOM NO: Z.354 AGE: 59 REPORT TYPE: OPERATIVE REPORT SEX: M ADMITTING PHYSICIAN:Tyrell Mckeon MD ATTENDING PHYSICIAN:Tyrell Mckeon MD OPERATION DATE: 06/19/2020 PROCEDURES: 1. Non-thoracotomy single lead AICD placement. 2. Defibrillation threshold testing. PREOPERATIVE DIAGNOSES: 1. 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 2. [place] [employer] class III congesti ve heart failure. POSTOPERATIVE DIAGNOSES: 1. 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 2. [place] [employer] class III congesti ve heart failure. SURGEON: Tyrell Mckeon MD SUPERINTENDENT GENERAL: None. ANESTHESIA: Local anesthesia with 1% lidocaine [...] was flushed with antibiotic- containing solution. A 7-Maltese sheath was advanced over the wire and [...] skin. Steri-Strips were applied to PATIENT NAME: JUAN C MONGE 19 wound externally. The patient tolerated the proc edure well with no complications. IMPLANT DATA: 1. Pulse generator: [employer] model TI3966-22I, s erial #[id number]. 2. Right ventricular lead; [employer] model 7120Q/ 58, serial number [id number]. STIMULATION THRESHOLD DATA: Right ventricle R waves [...] complications. Dictated By: Tyrell Mckeon MD WT: OP:KINGS/LUIS ANGEL/ALEX Conf#: [id number]/DID#: [id number] cc: Omid Tenorio MD Authenticated by Tyrell Mckeon MD On 06/23/20 06:02:06 AM at 0602 PATIENT NAME: JUAN C MONGE 19 2020-06-19 13:14:00-00:00 [id number] [place] [id number] PATIENT NAME: JUAN C MONGE ADMIT DATE: 06/19/20 ACCOUNT NO: [id number] ROOM NO: [facility] AGE: 59 REPORT TYPE: ELECTROCARDIOGRAM SEX: M ADMITTING PHYSICIAN:Tyrell Mckeon MD ATTENDING PHYSICIAN:Tyrell Mckeon MD Order: [id number] Test Reason : CHF Test Date/Time Stamp: [...] by Tiara Blue MD on 11/08 at 115 PATIENT NAME: JUAN C MONGE 19
[2023-03-20 13:14] LABS: Absolute Lymphocytes (CBC) 0.9 K/uL (0.7-4.9); Hematocrit 37.8 % (39.6-49.0); Lymphocytes % 10.5 % (15.3-44.8); MCV 101.5 fL (80-100); MPV 8.2 fL (7.6-11.3); RBC Red Blood Cell Count 3.72 M/uL (4.33-5.43)
[2023-03-20 13:23] LABS: Potassium 3.9 mEq/L (3.5-5.1); Troponin High Sensitivity 21.5 pg/mL (<58.9)
--- NOTE | 2023-03-20 13:55 | RAD REPORT ---
EXAM DESCRIPTION: Em Single View03/20/2023 1:42 pm CLINICAL HISTORY: sob COMPARISON: February 2023 FINDINGS: Lungs are moderately hyperaerated The lungs appear clear of acute infiltrate. The heart is normal size. Pacemaker leads in place IMPRESSION: No acute abnormalities displayed
--- NOTE | 2023-03-20 14:44 | RAD REPORT ---
EXAM DESCRIPTION: CT - Chest For Pe Angio - 03/20/2023 2:24 pm CLINICAL HISTORY: sob COMPARISON: 2021 TECHNIQUE: Dynamically enhanced axial 3 mm thick images of the chest were obtained during administra tion of 100 mL Isovue 370 IV contrast. Coronal and oblique reconstruction images were generated and r eviewed. Exam utilizes a protocol for optimal evaluation of pulmonary arterial tree. Maximum intensity projections 3D imaging was utilized All CT scans are performed using dose optimization technique as appropriate and may include automated exposure control or mA/KV adjustment according to patient size. FINDINGS: A pulmonary embolus is not seen. A thoracic aortic aneurysm is not noted. Small bilateral pleural effusions. A pericardial effusion is not seen. A lung consolidation is not present. Marked COPD Small amount of ascites IMPRESSION: Negative for a pulmonary embolism.
--- NOTE | 2023-03-20 15:15 | ER ---
Nurse's Notes [facility] Name: Juan C Monge Age: 62 yrs Sex: Male : 1960 Arrival Date: 03/20/2023 Time: 12:20 Bed 8 Private MD: Luís Ramirez H Diagnosis: COPD/ Chronic obstructive pulmonary disease with (acute) exacerbation Presentation: 03/20 12:27 Chief complaint: Patient states: shortness of breath that has been ongoing for weeks, ss has gotten worse. HX of COPD. Swelling noted to bilateral upper extremities. Coronavirus screen: Client denies travel out of the [place] in the last 14 days. Ebola Screen: Patient denies exposure to infectious person. Patient denies travel to an Ebola-affected area in the 21 days before illness onset. Initial Sepsis Screen: Does the patient meet any 2 criteria? No. Patient's initial sepsis screen is negative. Does the patient have a suspected source of infection? No. Patient's initial sepsis screen is negative. Risk Assessment: Do you want to hurt yourself or someone else? Patient reports no desire to harm self or others. Onset of symptoms is unknown. 12:27 Method Of Arrival: Wheelchair ss 12:27 Acuity: JESSI 3 ss Historical: - Allergies: 12:34 No Known Allergies; ss - Home Meds: 14:44 aspirin 81 mg Oral chew 1 tab once daily [Active]; albuterol sulfate 2.5 mg /3 mL hb (0.083 %) Nebulizer Solution for Nebulization as needed [Active]; atorvastatin 40 mg oral tablet every day at bedtime [Active]; benazepril 10 mg Oral tab 1 tab once daily [Active]; Coreg 25 mg Oral tab 1 tab 2 times per day [Active]; fluticasone propionate 250 mcg/actuation inhalation Blister, With Inhalation Device 2 inhalations 2 times per day [Active]; ipratropium bromide inhalation 4 times per day [Active]; memantine 5 mg oral tablet daily [Active]; Levaquin Oral 500 mg daily [Active]; methylprednisolone 4 mg oral Tablet, Dose Pack per package directions [Active]; omeprazole 40 mg Oral cpDR 1 cap 2 times per day [Active]; Xarelto 15 mg oral tablet daily [Active]; potassium chloride 10 mEq Oral cpER 1 cap 2 times per day [Active]; buspirone 30 mg Oral tab 1 tab 2 times per day [Active]; hydrochlorothiazide 25 mg Oral tab 1 tab once daily [Active]; - PMHx: 12:34 Hyperlipidemia; Hypertension; skull fracture; COPD; CVA; Atrial Fib; Myocardial ss infarction; - PSHx: 12:34 Appendectomy; defibrillator; ss - Immunization history:: Adult Immunizations up to date. - Social history:: Smoking status: . Screenin:00 [facility] ED Fall Risk Assessment (Adult) Score/Fall Risk Level 3 or more points = High hb Risk Oriented to surroundings, Maintained a safe environment, Educated pt \\T\\ family on fall prevention, incl call for assistance when getting out of bed. Abuse screen: Denies threats or abuse. Denies injuries from another. Nutritional screening: No deficits noted. Tuberculosis screening: No symptoms or risk factors identified. Assessment: 13:00 General: Appears in no apparent distress. Behavior is calm, cooperative. Pain: Denies hb pain. Neuro: Level of Consciousness is awake, alert, obeys commands, Oriented to person, place, time, situation. Cardiovascular: Patient's skin is warm and dry. Rhythm is sinus tachycardia. Respiratory: Reports shortness of breath Airway is patent Respiratory effort is even, unlabored, Respiratory pattern is regular, symmetrical. GI: No signs and/or symptoms were reported involving the gastrointestinal system. : No signs and/or symptoms were reported regarding the genitourinary system. EENT: No signs and/or symptoms were reported regarding the EENT system. Derm: Skin is pink, warm \\T\\ dry. Musculoskeletal: No signs and/or symptoms reported regarding the musculoskeletal system. 13:57 Reassessment: Pt became tachycardic \\T\\ 160s, c/o difficulty breathing, coughing, face ph cyanotic in color, ERP notified and arrived at bedside, coughing episode calmed and pt states, " I got choked up on a chip. I'm doing better now. I just don't want to be left alone again. " Repeat EKG obtained, HR decreased to 130s. 14:41 Reassessment: Patient appears in no apparent distress at this time. Patient and/or hb family updated on plan of care and expected duration. Pain level reassessed. Patient is alert, oriented x 3, equal unlabored respirations, skin warm/dry/pink. 18:18 Reassessment: Report given to SERA Knowles. Vital Signs: 12:27 BP 152 / 85; Pulse 112; Resp 16; Temp 97.6; Pulse Ox 98% on R/A; Height 5 ft. 10 in. ; ss Pain 0/10; 13:00 BP 148 / 89; Pulse 77; Resp 18; Pulse Ox 99% on 2 lpm NC; hb 13:48 BP 152 / 89; Pulse 122; Resp 30; Pulse Ox 90% on 2 lpm NC; hb 13:48 BP 156 / 86; Pulse 98; Resp 18; Pulse Ox 100% on 2 lpm NC; hb 14:47 BP 137 / 66; Pulse 100; Resp 18; Pulse Ox 100% on 2 lpm NC; ph 15:45 BP 142 / 76; Pulse 96; Resp 18; Pulse Ox 99% on 2 lpm NC; ph 16:45 BP 132 / 78; Pulse 103; Resp 18; Pulse Ox 100% on 2 lpm NC; ph 12:27 Pain Scale: Adult ss ED Course: 12:22 Patient arrived in ED. rg4 12:22 Luís Ramirez DO is Private Physician. rg4 12:24 Fatmata Maharaj FNP-C is [facility]. kb 12:24 Sharad Perales MD is Attending Physician. kb 12:31 Triage completed. ss 12:34 Arm band placed on right wrist. ss 12:59 Angely Smith RN is Primary Nurse. hb 12:59 Inserted saline lock: 22 gauge in right upper arm, using aseptic technique. Blood hb collected. 13:00 Patient has correct armband on for positive identification. hb 13:43 XRAY Chest (1 view) In Process Unspecified. EDMS 14:25 CT Chest For PE Angio In Process Unspecified. EDMS 15:14 Dedrick Parish MD is Hospitalizing Provider. kb 18:26 No provider procedures requiring assistance completed. Patient admitted, IV remains in ss place. Administered Medications: 12:59 Drug: Decadron - Dexamethasone IVP 10 mg Route: IVP; Site: right upper arm; hb 12:59 Drug: Albuterol Inhalation 2.5 mg Route: Inhalation; hb 12:59 Drug: Ipratropium Inhalation Aerosol 0.5 mg Route: Inhalation; hb Medication: 13:00 VIS not applicable for this client. hb Outcome: 15:14 Decision to Hospitalize by Provider. kb 18:26 Admitted to Tele ss 18:26 Admitted to Tele accompanied by nurse, accompanied by tech, via wheelchair, with chart, Report called to SERA Knowles 18:26 Condition: good 18:26 Instructed on the need for admit. 18:27 Patient left the ED. Signatures: Dispatcher [employer] EDFatmata Woodson, GROVER CANCHOLA-Melody Benitez, RN RN Olga Ramirez, SERA RN Anegly Goncalves RN RN Tata Bah rg4
--- NOTE | 2023-03-20 15:15 | EDPHYS ---
Physician Documentation [facility] Name: Juan C Monge Age: 62 yrs Sex: Male : 1960 Arrival Date: 03/20/2023 Time: 12:20 Bed 8 Private MD: Luís Ramirez H ED Physician Sharad Perales HPI: 03/20 15:12 This 62 yrs old Male presents to ER via Wheelchair with complaints of Breathing kb Difficulty. 15:12 The patient has shortness of breath at rest. Onset: The symptoms/episode began/occurred kb 2 week(s) ago, and became worse. Duration: The symptoms are continuous. The patient's shortness of breath is aggravated by exertion. Associated signs and symptoms: Pertinent positives: non-productive cough. Severity of symptoms: At their worst the symptoms were moderate in the emergency department the symptoms are unchanged. The patient has experienced similar episodes in the past. The patient has not recently seen a physician. Historical: - Allergies: 12:34 No Known Allergies; ss - Home Meds: 14:44 aspirin 81 mg Oral chew 1 tab once daily [Active]; albuterol sulfate 2.5 mg /3 mL hb (0.083 %) Nebulizer Solution for Nebulization as needed [Active]; atorvastatin 40 mg oral tablet every day at bedtime [Active]; benazepril 10 mg Oral tab 1 tab once daily [Active]; Coreg 25 mg Oral tab 1 tab 2 times per day [Active]; fluticasone propionate 250 mcg/actuation inhalation Blister, With Inhalation Device 2 inhalations 2 times per day [Active]; ipratropium bromide inhalation 4 times per day [Active]; memantine 5 mg oral tablet daily [Active]; Levaquin Oral 500 mg daily [Active]; methylprednisolone 4 mg oral Tablet, Dose Pack per package directions [Active]; omeprazole 40 mg Oral cpDR 1 cap 2 times per day [Active]; Xarelto 15 mg oral tablet daily [Active]; potassium chloride 10 mEq Oral cpER 1 cap 2 times per day [Active]; buspirone 30 mg Oral tab 1 tab 2 times per day [Active]; hydrochlorothiazide 25 mg Oral tab 1 tab once daily [Active]; - PMHx: 12:34 Hyperlipidemia; Hypertension; skull fracture; COPD; CVA; Atrial Fib; Myocardial ss infarction; - PSHx: 12:34 Appendectomy; defibrillator; ss - Immunization history:: Adult Immunizations up to date. - Social history:: Smoking status: . ROS: 15:08 Constitutional: Negative for fever, chills, and weight loss. kb 15:08 Respiratory: Positive for dyspnea on exertion, shortness of breath. 15:08 All other systems are negative. Exam: 15:11 Constitutional: This is a well developed, well nourished patient who is awake, alert, kb and in no acute distress. Head/Face: Normocephalic, atraumatic. ENT: Moist Mucous membranes Cardiovascular: Regular rate and rhythm with a normal S1 and S2. No gallops, murmurs, or rubs. No pulse deficits. Abdomen/GI: Soft, non-tender. No distention Skin: Warm, dry with normal turgor. Normal color. MS/ Extremity: Pulses equal, no cyanosis. Neurovascular intact. Full, normal range of motion. Neuro: Awake and alert, GCS 15, oriented to person, place, time, and situation. Moves all extremities. Normal gait. 15:11 Respiratory: moderate respiratory distress is noted, Respirations: labored breathing, that is moderate, Breath sounds: decreased breath sounds, that are moderate, are located in both bases, wheezing: expiratory that is mild, that is moderate, is scattered. Vital Signs: 12:27 BP 152 / 85; Pulse 112; Resp 16; Temp 97.6; Pulse Ox 98% on R/A; Height 5 ft. 10 in. ; ss Pain 0/10; 13:00 BP 148 / 89; Pulse 77; Resp 18; Pulse Ox 99% on 2 lpm NC; hb 13:48 BP 152 / 89; Pulse 122; Resp 30; Pulse Ox 90% on 2 lpm NC; hb 13:48 BP 156 / 86; Pulse 98; Resp 18; Pulse Ox 100% on 2 lpm NC; hb 14:47 BP 137 / 66; Pulse 100; Resp 18; Pulse Ox 100% on 2 lpm NC; ph 15:45 BP 142 / 76; Pulse 96; Resp 18; Pulse Ox 99% on 2 lpm NC; ph 16:45 BP 132 / 78; Pulse 103; Resp 18; Pulse Ox 100% on 2 lpm NC; ph 12:27 Pain Scale: Adult ss MDM: 12:24 Patient medically screened. kb 15:12 Differential diagnosis: CHF exacerbation, Chronic Obstructive Pulmonary Disease kb Myocardial Infarction pneumonia, pulmonary edema, Pulmonary Embolism. Data reviewed: vital signs, nurses notes. Consideration of Admission/Observation Patient was admitted/placed on observation. Management of patient was discussed with the following: Hospitalist: Dr Parish. Care significantly affected by the following chronic conditions: Congestive Heart Failure, Chronic Obstructive Pulmonary Disease. Counseling: I had a detailed discussion with the patient and/or guardian regarding: the historical points, exam findings, and any diagnostic results supporting the discharge/admit diagnosis, lab results, radiology results, the need for further work-up and treatment in the hospital. 03/20 12:26 Order name: Basic Metabolic Panel; Complete Time: 13:27 kb 03/20 12:26 Order name: CBC with Diff; Complete Time: 13:27 kb 03/20 12:26 Order name: Magnesium; Complete Time: 13:27 kb 03/20 12:26 Order name: NT PRO-BNP; Complete Time: 13:27 kb 03/20 12:26 Order name: Troponin HS; Complete Time: 13:27 kb 03/20 12:26 Order name: Blood Culture Adult (2) kb 03/20 12:26 Order name: Lactate w/ 2H reflex if indic.; Complete Time: 13:27 kb 03/20 17:15 Order name: CBC with Automated Diff EDMS 03/20 17:15 Order name: CBC with Automated Diff EDMS 03/20 17:15 Order name: Comprehensive Metabolic Panel EDAR 03/20 17:15 Order name: Comprehensive Metabolic Panel EDAR 03/20 17:15 Order name: Lipid Profile EDMS 03/20 17:15 Order name: Lipid Profile EDMS 03/20 17:15 Order name: Magnesium EDMS 03/20 17:15 Order name: Magnesium EDMS 03/20 17:15 Order name: NT PRO-BNP EDMS 03/20 17:15 Order name: NT PRO-BNP EDMS 03/20 17:15 Order name: Phosphorus EDMS 03/20 17:15 Order name: Phosphorus EDMS 03/20 17:15 Order name: Protime (+INR) EDMS 03/20 17:15 Order name: Protime (+INR) EDMS 03/20 17:15 Order name: PTT, Activated Partial Thromb EDMS 03/20 17:15 Order name: PTT, Activated Partial Thromb EDAR 03/20 17:15 Order name: T4 Free [facility] 03/20 17:15 Order name: T4 Free [facility] 03/20 17:15 Order name: Thyroid Stimulating Hormone EDAR 03/20 17:15 Order name: Thyroid Stimulating Hormone EDAR 03/20 17:15 Order name: Troponin High Sensitivity [facility] 03/20 17:15 Order name: Troponin High Sensitivity [facility] 03/20 17:15 Order name: Troponin High Sensitivity [facility] 03/20 17:15 Order name: Troponin High Sensitivity [facility] 03/20 12:26 Order name: XRAY Chest (1 view); Complete Time: 13:59 kb 03/20 13:53 Order name: CT Chest For PE Angio; Complete Time: 14:50 kb 03/20 12:26 Order name: EKG; Complete Time: 12:26 kb 03/20 16:57 Order name: Diet Heart Healthy; Complete Time: 16:57 ph 03/20 17:15 Order name: CONS Physician Consult [facility] 03/20 12:26 Order name: Cardiac monitoring; Complete Time: 12:30 kb 03/20 12:26 Order name: EKG - Nurse/Tech; Complete Time: 12:30 kb 03/20 12:26 Order name: IV Saline Lock; Complete Time: 13:00 kb 03/20 12:26 Order name: Labs collected and sent; Complete Time: 13:00 kb 03/20 12:26 Order name: O2 Per Protocol; Complete Time: 12:30 kb 03/20 12:26 Order name: O2 Sat Monitoring; Complete Time: 12:30 kb Administered Medications: 12:59 Drug: Decadron - Dexamethasone IVP 10 mg Route: IVP; Site: right upper arm; hb 12:59 Drug: Albuterol Inhalation 2.5 mg Route: Inhalation; hb 12:59 Drug: Ipratropium Inhalation Aerosol 0.5 mg Route: Inhalation; hb Disposition: 18:36 Co-signature as Attending Physician, Sharad Perales MD I agree with the assessment and kdr plan of care. Disposition Summary: 03/20/23 15:14 Hospitalization Ordered Hospitalization Status: Observation kb Provider: Dedrick Parish Location: Telemetry/MedSurg (observation) kb Condition: Fair kb Problem: an acute exacerbation kb Symptoms: are unchanged kb Bed/Room Type: Standard Room Assignment: 409(03/20/23 17:40) dw Diagnosis - COPD/ Chronic obstructive pulmonary disease with (acute) exacerbation kb Forms: - Medication Reconciliation Form kb - SBAR form kb Signatures: Dispatcher [employer] Fatmata Arias, Edel Russo RN RN dw Sharad Perales MD MD kdr Blanchard, Shelby, RN RN Angely Smith RN RN Corrections: (The following items were deleted from the chart) 17:40 15:14 kb dw
[2023-03-20] MEDS ORDERED: ONDANSETRON 4 MG/2 ML VIAL IV PRN (17:09)
[2023-03-20] MEDS ORDERED: NA CHLORIDE 0.9% 1,000 ML IV SCH (18:00)
[2023-03-20] MEDS ORDERED: CEFTRIAXONE 1,000 MG in NA CHLORIDE 0.9% 50 ML IVPB SCH (21:00)
[2023-03-21] MEDS: FUROSEMIDE 40 MG/4 ML VIAL IV SCH ×3 (01:16→16:26)
[2023-03-21 06:15] LABS: Absolute Lymphocytes (CBC) 0.5 K/uL (0.7-4.9); Hematocrit 35.3 % (39.6-49.0); Lymphocytes % 5.1 % (15.3-44.8); MCV 99.6 fL (80-100); MPV 8.5 fL (7.6-11.3); RBC Red Blood Cell Count 3.54 M/uL (4.33-5.43)
[2023-03-21] MEDS ORDERED: METHYLPREDNISOLONE 125 MG INJ IV ONE (06:16)
[2023-03-21 06:38] LABS: Albumin 2.5 g/dL (3.4-5.0); Bilirubin Total 0.3 mg/dL (0.2-1.0); Magnesium 1.8 mg/dL (1.6-2.4); Phosphorus 4.1 mg/dL (2.5-4.9); Potassium 3.9 mEq/L (3.5-5.1); Thyroid Stimulating Hormone 0.517 uIU/mL (0.358-3.740); Troponin High Sensitivity 8.6 pg/mL (<58.9)
--- NOTE | 2023-03-21 06:49 | P.HP ---
Certification for Inpatient Patient admitted to: Observation With expected LOS: <2 Midnights Patient will require the following post-hospital care: None Practitioner: I am a practitioner with admitting privileges, knowledge of patient current condition, hospital course, and medical plan of care. Services: Services provided to patient in accordance with Admission requirements found in Title 42 Section 412.3 of the Code of Federal Regulations Patient History Date of Service: 03/20/23 Reason for admission: Shortness of breath History of Present Illness: patient is a 62-year-old gentleman came to the hospital with shortness of breath. Patient wears home oxygen but he states he does not always have to wear it. He does have an oximeter so not really sure how he is monitoring his oxygen saturations. He presented to the emergency room with difficulty breathing. In the ER he was found have acute COPD exacerbation. He was given nebs, steroids, antibiotics and his clinical symptoms are improved. He did have some mildly elevated BNP levels. We did order an echocardiogram for this. Otherwise clinically he is doing better and he may be able to go home in the morning. Allergies No Known Allergies Allergy (Uncoded 03/13/18 21:55) Unknown Home Medications: Aspirin [Aspirin EC 81 MG] 81 mg PO DAILY #30 tablet.dr 03/14/18 Benazepril HCl [Lotensin*] 10 mg PO DAILY #30 tab 03/14/18 Albuterol Neb [Proventil 0.083% Neb Soln] 1 inh Q4H PRN 03/20/23 Atorvastatin Calcium [Lipitor] 40 mg PO BEDTIME 03/20/23 Carvedilol [Coreg] 1 tab PO BID 03/20/23 Fluticasone Propion/Salmeterol [Fluticasone-Salmeterol 250-50] 2 puff BID 03/20/23 Ipratropium [place] 500 mcg Q6H 03/20/23 Memantine HCl [Namenda] 1 tab PO DAILY 03/20/23 Methylprednisolone [Medrol dosepack] See Rx Instructions .ROUTE .COMPLEX 03/20/23 Omeprazole [Prilosec] 1 tab PO DAILY 03/20/23 Potassium Chloride [Micro-K] 1 tab PO DAILY 03/20/23 Rivaroxaban [Xarelto*] 1 tab PO DAILY 03/20/23 levoFLOXacin [Levaquin*] 1 tab PO DAILY 03/20/23 - Past Medical/Surgical History Diabetic: No -: COPD -: paroxysmal A.Fib -: HTN -: Tobacco abuse -: CVA -: skull fx -: defibrilator -: Appendectomy - Family History Father Medical History: Diabetes - Social History Smoking Status: Current some day smoker Alcohol use: No CD- Drugs: No Caffeine use: No Place of Residence: Home Review of Systems 10-point ROS is otherwise unremarkable Physical Examination - Vital Signs Temperature: 98.2 F Blood Pressure: 123/73 Pulse: 78 Respirations: 18 Pulse Ox (%): 96 - Physical Exam General: Alert, In no apparent distress, Oriented x3 HEENT: Atraumatic, PERRLA, Mucous membr. moist/pink, EOMI, Sclerae nonicteric Neck: Supple, 2+ carotid pulse no bruit, No LAD, Without JVD or thyroid abnormality Respiratory: Diminished, Expiratory wheezes Cardiovascular: Regular rate/rhythm, Normal S1 S2, No murmurs Gastrointestinal: Normal bowel sounds, Soft and benign, Non-distended, No tenderness Musculoskeletal: No clubbing, No swelling, No tenderness Integumentary: No rashes Neurological: Normal gait, Normal speech, Normal strength at 5/5 x4 extr, Normal tone, Sensation intact, Cranial nerves 3-12 intact, Normal affect Lymphatics: No axilla or inguinal lymphadenopathy - Studies Laboratory Data (last 24 hrs) 03/20/23 12:45: WBC 8.40, Hgb 12.0 L, Hct 37.8 L, Plt Count 197 03/20/23 12:45: Sodium 140, Potassium 3.9, BUN 26 H, Creatinine 0.65 L, Glucose 82, Magnesium 2.0 Assessment & Plan - Problems (Diagnosis) (1) Diastolic CHF, acute Current Visit: Yes Status: Acute (2) COPD (chronic obstructive pulmonary disease) Onset Date: 03/14/18 Current Visit: No Status: Acute Qualifiers: COPD type: COPD with acute exacerbation Qualified Code(s): J44.1 - Chronic obstructive pulmonary disease with (acute) exacerbation (3) CVA (cerebral vascular accident) Onset Date: 03/14/18 Current Visit: No Status: Acute Qualifiers: (4) HTN (hypertension) Onset Date: 03/14/18 Current Visit: No Status: Acute (5) Tobacco abuse Onset Date: 03/14/18 Current Visit: No Status: Acute - Plan -nebs, steroids, and antibiotics -O2 per protocol. -Echo -diurese gently -repeat chest x-ray -pulmonary consultation Discharge Plan: Home Plan to discharge in: 24 Hours - Advance Directives Does patient have a Living Will: No Does patient have a Durable POA for Healthcare: No - Code Status/Comfort Care Code Status Assessed: Yes Code Status: Full Code Critical Care: No Time Spent Managing PTS Care (In Minutes): 45
--- NOTE | 2023-03-21 07:41 | P.PN ---
Subjective Date of Service: 03/21/23 Pt with bilateral upper extremity edema; CT unremarkable; Review of Systems 10-point ROS is otherwise unremarkable Physical Examination - Vital Signs Temperature: 98.2 F Blood Pressure: 123/73 Pulse: 78 Respirations: 18 Pulse Ox (%): 96 - Physical Exam General: Alert, In no apparent distress, Oriented x3 HEENT: Atraumatic, PERRLA, EOMI Neck: Supple, JVD not distended Respiratory: Clear to auscultation bilaterally, Normal air movement Cardiovascular: Regular rate/rhythm, Normal S1 S2, Systolic murmur Gastrointestinal: Normal bowel sounds, Soft and benign, Non-distended, No tenderness Musculoskeletal: Swelling Neurological: Sensation intact, Cranial nerves 3-12 intact Lymphatics: No axilla or inguinal lymphadenopathy - Studies Laboratory Data (last 24 hrs) 03/20/23 12:45: WBC 8.40, Hgb 12.0 L, Hct 37.8 L, Plt Count 197 03/20/23 12:45: Sodium 140, Potassium 3.9, BUN 26 H, Creatinine 0.65 L, Glucose 82, Magnesium 2.0 Medications List Reviewed: Yes Assessment & Plan - Problems (Diagnosis) (1) Diastolic CHF, acute Current Visit: Yes Status: Acute (2) COPD (chronic obstructive pulmonary disease) Onset Date: 03/14/18 Current Visit: No Status: Acute Qualifiers: COPD type: COPD with acute exacerbation Qualified Code(s): J44.1 - Chronic obstructive pulmonary disease with (acute) exacerbation (3) CVA (cerebral vascular accident) Onset Date: 03/14/18 Current Visit: No Status: Acute Qualifiers: (4) HTN (hypertension) Onset Date: 03/14/18 Current Visit: No Status: Acute (5) Tobacco abuse Onset Date: 03/14/18 Current Visit: No Status: Acute - Plan -nebs, steroids, and antibiotics -O2 per protocol. -Echo pending -diuresing gently -repeat chest x-ray -pulmonary consultation -Doppler of the upper extremity - Discharge Plan: Home Plan to discharge in: Greater than 2 days - Advance Directives Does patient have a Living Will: No Does patient have a Durable POA for Healthcare: No - Code Status/Comfort Care Code Status: Full Code Critical Care: No Time Spent Managing PTS Care (In Minutes): 35
[2023-03-21] MEDS: carvediloL 3.125 MG TAB PO SCH ×2 (08:15→20:29)
[2023-03-21] MEDS: PANTOPRAZOLE 40MG TABLET PO SCH (08:15)
[2023-03-21] MEDS: RIVAROXABAN 15 MG TABLET PO SCH (08:16)
[2023-03-21] MEDS: MEMANTINE HCL 10 MG TABLET PO SCH (08:16)
[2023-03-21] MEDS: ASPIRIN EC 81 MG TAB PO SCH (08:16)
[2023-03-21] MEDS ORDERED: POTASSIUM CL SA 10 MEQ TAB PO ONE (09:00)
[2023-03-21] MEDS ORDERED: ENOXAPARIN 40 MG/0.4 ML SQ SCH (09:00)
[2023-03-21] MEDS ORDERED: MAGNESIUM SULFATE 1 gm IVPB 1 GM/100 ML BAG IV ONE (09:00)
[2023-03-21] MEDS: predniSONE 20 MG TAB PO SCH ×2 (09:57→20:29)
[2023-03-21] MEDS: DULERA 200/5 (MOMETASONE/FORMOTEROL) INHALER IH SCH ×2 (09:57→20:35)
--- NOTE | 2023-03-21 11:50 | RAD REPORT ---
EXAM DESCRIPTION: US - UPPER EXTREMITY VENOUS BILAT - 03/21/2023 9:30 am CLINICAL HISTORY: Bilateral upper extremity swelling COMPARISON: None. TECHNIQUE: Real-time sonographic evaluation of the bilateral upper extremity deep venous system was performed. FINDINGS: Normal compressibility, flow augmentation, phasic flow and spontaneous flow is identified in the bilateral upper extremity deep venous systems. No intraluminal filling defects seen. Subcutan eous soft tissue swelling and edema along the forearms bilaterally. IMPRESSION: No evidence of DVT in the bilateral upper extremities. Edema and subcutaneous soft tissue swelling particularly along the forearms bilaterally. Please corre late clinically for evidence of cellulitis.
--- NOTE | 2023-03-21 11:59 | P.CNS ---
Date of Consult: 03/21/23 Reason for Consult: COPD exacerbation Chief Complaint: Shortness of breath History of Present Illness: Patient is 62 years of age history of COPD is oxygen as needed only has albuterol at home has been complaining of shortness of breath worse of the past month denies any cough fever or chills prior stroke before is currently stable Allergies No Known Allergies Allergy (Uncoded 03/13/18 21:55) Unknown Home Medications: Aspirin [Aspirin EC 81 MG] 81 mg PO DAILY #30 tablet.dr 03/14/18 Benazepril HCl [Lotensin*] 10 mg PO DAILY #30 tab 03/14/18 Albuterol Neb [Proventil 0.083% Neb Soln] 1 inh Q4H PRN 03/20/23 Atorvastatin Calcium [Lipitor] 40 mg PO BEDTIME 03/20/23 Carvedilol [Coreg] 1 tab PO BID 03/20/23 Fluticasone Propion/Salmeterol [Fluticasone-Salmeterol 250-50] 2 puff BID 03/20/23 Ipratropium [place] 500 mcg Q6H 03/20/23 Memantine HCl [Namenda] 1 tab PO DAILY 03/20/23 Methylprednisolone [Medrol dosepack] See Rx Instructions .ROUTE .COMPLEX 03/20/23 Omeprazole [Prilosec] 1 tab PO DAILY 03/20/23 Potassium Chloride [Micro-K] 1 tab PO DAILY 03/20/23 Rivaroxaban [Xarelto*] 1 tab PO DAILY 03/20/23 levoFLOXacin [Levaquin*] 1 tab PO DAILY 03/20/23 Fluticasone/Umeclidin/Vilanter [Trelegy Ellipta 200-62.5-25] 1 each IH DAILY 30 Days #30 aero 03/21/23 - Past Medical/Surgical History Diabetic: No -: COPD -: paroxysmal A.Fib -: HTN -: Tobacco abuse -: CVA -: skull fx -: defibrilator -: Appendectomy - Family History Father Medical History: Diabetes - Social History Smoking Status: Current every day smoker Alcohol use: No CD- Drugs: No Caffeine use: No Place of Residence: Home Review of Systems 10-point ROS is otherwise unremarkable Physical Examination Temp Pulse Resp BP Pulse Ox 97.8 F 82 24 H 123/71 98 03/21/23 08:00 03/21/23 08:15 03/21/23 08:00 03/21/23 08:15 03/21/23 08:00 General: Alert, Oriented x3 Neck: Supple Respiratory: Diminished Cardiovascular: No edema, Regular rate/rhythm, Normal S1 S2 Gastrointestinal: Normal bowel sounds, Soft and benign Musculoskeletal: No clubbing, No contractures Integumentary: No rashes, No breakdown Laboratory Data (last 24 hrs) 03/20/23 12:45: WBC 8.40, Hgb 12.0 L, Hct 37.8 L, Plt Count 197 03/20/23 12:45: Sodium 140, Potassium 3.9, BUN 26 H, Creatinine 0.65 L, Glucose 82, Magnesium 2.0 - Problems (1) COPD exacerbation Current Visit: Yes Status: Acute Plan: Patient is 62 years of age admitted with COPD exacerbation uses oxygen on a as needed basis albuterol he does not have any long-acting bronchodilators Albin's reviewed patient is mildly anemic x-ray shows COPD changes T scan no PE for discharge on prednisone and long-acting bronchodilator
[2023-03-21] MEDS ORDERED: METHYLPREDNISOLONE 125 MG INJ IV SCH (12:00)
--- NOTE | 2023-03-21 19:32 | EKG ---
Test Date: 2023-03-20 Test Time: 13:56:06 Tobacco Prevention Health Educator: ANURADHA MEASUREMENT RESULTS: Intervals: Rate: 142 AL: 118 QRSD: 80 QT: 280 QTc: 430 [place]: P: 90 AL: 118 QRS: 74 T: 92 INTERPRETIVE STATEMENTS: Sinus tachycardia with premature supraventricular complexes Low voltage QRS Borderline ECG Compared to ECG 03/20/2023 12:31:34 Atrial premature complex(es) now present Electronically Signed On 03-21-23 19:29:08 CDT by Randy Bautista
--- NOTE | 2023-03-21 19:33 | EKG ---
Test Date: 2023-03-20 Test Time: 12:31:34 Director Of Web Marketing: ANURADHA MEASUREMENT RESULTS: Intervals: Rate: 104 DC: 132 QRSD: 86 QT: 334 QTc: 439 [place]: P: 91 DC: 132 QRS: 80 T: 88 INTERPRETIVE STATEMENTS: Sinus tachycardia Low voltage QRS Borderline ECG Compared to ECG 03/15/2023 02:01:48 Low QRS voltage now present Sinus rhythm no longer present ST (T wave) deviation no longer present Myocardial infarct finding no longer present Electronically Signed On 03-21-23 19:29:12 CDT by Randy Bautista
[2023-03-21] MEDS: IPRATROPIUM BROM 0.5MG/2.5ML NEB PRN (20:05)
[2023-03-21] MEDS: ALBUTEROL 2.5 MG/3 ML NEB SOL NEB PRN (20:05)
[2023-03-21] MEDS: ATORVASTATIN 80 MG TAB PO SCH (20:29)
[2023-03-21] MEDS: MELATONIN 5 MG TABLET PO PRN (21:15)
[2023-03-21] MEDS: ACETAMINOPHEN 500 MG TAB PO PRN (22:05)
[2023-03-22] MEDS: ALBUTEROL 2.5 MG/3 ML NEB SOL NEB PRN ×2 (01:35→14:15)
[2023-03-22] MEDS: IPRATROPIUM BROM 0.5MG/2.5ML NEB PRN ×2 (01:35→14:15)
[2023-03-22 06:09] VITALS: BMI 21.3
[2023-03-22 06:41] LABS: Potassium 3.3 mEq/L (3.5-5.1)
[2023-03-22] MEDS ORDERED: POTASSIUM CL SA 10 MEQ TAB PO ONE ×2 (09:00→15:19)
[2023-03-22] MEDS: ASPIRIN EC 81 MG TAB PO SCH (09:03)
[2023-03-22] MEDS: RIVAROXABAN 15 MG TABLET PO SCH (09:03)
[2023-03-22] MEDS: MEMANTINE HCL 10 MG TABLET PO SCH (09:03)
[2023-03-22] MEDS: predniSONE 20 MG TAB PO SCH ×2 (09:04→20:39)
[2023-03-22] MEDS: carvediloL 3.125 MG TAB PO SCH ×2 (09:04→20:39)
[2023-03-22] MEDS: PANTOPRAZOLE 40MG TABLET PO SCH (09:04)
[2023-03-22] MEDS: FUROSEMIDE 40 MG/4 ML VIAL IV SCH ×2 (09:05→17:00)
[2023-03-22] MEDS: DULERA 200/5 (MOMETASONE/FORMOTEROL) INHALER IH SCH ×2 (09:07→20:39)
[2023-03-22 14:14] LABS: BUN Blood Urea Nitrogen 26 mg/dL (7-18); Bicarbonate > 45 mEq/L (21-32); Glomerular Filtration Rate 98 ml/min (=/>90); Glucose Level 125 mg/dL (74-106); Potassium 3.5 mEq/L (3.5-5.1); Sodium Level 136 mEq/L (136-145)
[2023-03-22 17:09] LABS: Arterial Blood Carboxyhemoglob 1.3 % (0-1.5); Blood Gas Oxyhemoglobin 84.2 % (94-97); Blood O2 Saturation 86.4 % (92-98.5)
--- NOTE | 2023-03-22 17:16 | P.PN ---
Subjective Date of Service: 03/22/23 Chief Complaint: Shortness of breath No acute events overnight. This morning, he reports that his breathing has improved at rest; however, he experiences shortness of breath on exertion. He states that he does not feel comfortable discharging today due the severeness of his exertional shortness of breath. He denies chest pain or palpitations. Review of Systems 10-point ROS is otherwise unremarkable Respiratory: Cough, SOB with Excertion, Wheezing Physical Examination - Vital Signs Temperature: 97.7 F Blood Pressure: 126/70 Pulse: 87 Respirations: 18 Pulse Ox (%): 96 - Physical Exam General: Alert, In no apparent distress, Oriented x3 HEENT: Atraumatic, Mucous membr. moist/pink, Sclerae nonicteric Neck: JVD not distended Respiratory: Diminished, Expiratory wheezes (faint) Cardiovascular: Regular rate/rhythm, Normal S1 S2, No gallops, No rubs, No murmurs, Edema (bilateral upper extremity edema (left > right)) Gastrointestinal: Normal bowel sounds, Soft and benign, Non-distended, No tenderness, No rebound, No guarding Musculoskeletal: No clubbing Integumentary: No rashes Neurological: Normal speech, Normal affect - Studies Medications List Reviewed: Yes Assessment And Plan - Plan # Acute on Chronic Hypercapnic, Hypoxemic Respiratory Failure due to Acute Chronic Obstructive Pulmonary Disease Exacerbation # SIRS Criteria (Tachypnea, Tachycardia) likely due to COPD Exacerbation - no evidence of infection # Tobacco Use Disorder No obvious trigger at this time. No evidence of infection. - Evaluation thus far: - Physical exam = faint end-expiratory wheezing throughout - VBG: pH 7.28, PCO2 85.8, PO2 61.1 - Chest x-ray = "no acute abnormalities displayed" - CT chest angiogram = "negative for a pulmonary embolism." - Plan: - Pulmonology consulted - recommendations appreciated - Steroids and bronchodilators per Pulm - Consulted Respiratory Therapy - Supplemental oxygen to maintain SpO2 > 92% - Assess inhaler technique one improved from COPD exacerbation - Encouraged incentive spirometry - Tobacco cessation counseling # Paroxysmal Atrial Fibrillation - Continue home carvedilol, rivaroxaban # Acute on Chronic Decompensated Systolic Congestive Heart Failure # History of Cerebrovascular Accident # Hypertension - Consult Cardiology - recommendations appreciated - NT-Pro BNP = 1160 - Transthoracic echocardiogram (02/2018) = "moderate global hypokinesis. left ventricular ejection fraction 35-40%. no thrombus. no vegetation." - Repeat transthoracic echocardiogram - Bilateral upper extremity Doppler = "no evidence of DVT in the bilateral upper extremities. Edema and subcutaneous soft tissue swelling particularly along the forearms bilaterally. Please correlate clinically for evidence of cellulitis." - Diuresis with IV furosemide - Continue home atorvastatin, carvedilol - Daily weights - Strict I/O - Cardiac diet, 2 L fluid restriction, 2 g Na restriction Ren Mcgraw M.D.
[2023-03-22] MEDS: ATORVASTATIN 80 MG TAB PO SCH (20:39)
[2023-03-22] MEDS: MELATONIN 5 MG TABLET PO PRN (22:47)
[2023-03-23 06:56] LABS: Potassium 3.7 mEq/L (3.5-5.1)
[2023-03-23] MEDS: ASPIRIN EC 81 MG TAB PO SCH (09:11)
[2023-03-23] MEDS: FUROSEMIDE 40 MG TABLET PO SCH (09:11)
[2023-03-23] MEDS: carvediloL 3.125 MG TAB PO SCH ×2 (09:11→20:36)
[2023-03-23] MEDS: MEMANTINE HCL 10 MG TABLET PO SCH (09:11)
[2023-03-23] MEDS: predniSONE 20 MG TAB PO SCH ×2 (09:11→20:36)
[2023-03-23] MEDS: PANTOPRAZOLE 40MG TABLET PO SCH (09:11)
[2023-03-23] MEDS: RIVAROXABAN 15 MG TABLET PO SCH (09:11)
[2023-03-23] MEDS: DULERA 200/5 (MOMETASONE/FORMOTEROL) INHALER IH SCH ×2 (09:12→20:37)
--- NOTE | 2023-03-23 12:02 | P.PN ---
Subjective Date of Service: 03/23/23 Chief Complaint: COPD exacerbation Subjective: Improving (She is still feeling weak short of breath improved a little) Review of Systems General: Weakness Respiratory: Shortness of Breath Physical Examination - Vital Signs Temperature: 97.5 F Blood Pressure: 138/65 Pulse: 71 Respirations: 16 Pulse Ox (%): 96 - Physical Exam General: Alert, Oriented x3 Respiratory: Clear to auscultation bilaterally, Diminished Cardiovascular: No edema, Regular rate/rhythm, Normal S1 S2 - Studies Medications List Reviewed: Yes Assessment And Plan - Current Problems (Diagnosis) (1) COPD exacerbation Current Visit: Yes Status: Acute Plan: Patient admitted with COPD exacerbation feeling weak and short of breath continue with Dulera prednisone for a week and can take nebulizers as needed no signs oxygenation stable patient has O2 at home
[2023-03-23] MEDS ORDERED: POTASSIUM CL SA 10 MEQ TAB PO ONE (12:53)
--- NOTE | 2023-03-23 16:16 | P.PN ---
Subjective Date of Service: 03/23/23 Chief Complaint: COPD exacerbation No acute events overnight. He was seen this morning on rounds alongside Dr. Cedillo. He reports that his breathing is unchanged compared to yesterday. He reports persistent shortness of breath on exertion. He denies chest pain or palpitations. Review of Systems 10-point ROS is otherwise unremarkable Respiratory: Cough, SOB with Excertion Physical Examination - Vital Signs Temperature: 97.5 F Blood Pressure: 138/65 Pulse: 71 Respirations: 16 Pulse Ox (%): 96 - Studies Medications List Reviewed: Yes Assessment And Plan - Plan - Physical Exam General: Alert, In no apparent distress, Oriented x3 HEENT: Atraumatic, Mucous membr. moist/pink, Sclerae nonicteric Respiratory: Diminished, Expiratory wheezes (faint) Cardiovascular: Regular rate/rhythm, No murmurs, Edema (bilateral upper extremity edema (left > right)) Gastrointestinal: Normal bowel sounds, Soft, Non-distended, No tenderness Musculoskeletal: No clubbing Integumentary: No rashes Neurological: Normal speech, Normal affect # Acute on Chronic Hypercapnic, Hypoxemic Respiratory Failure due to Acute Chronic Obstructive Pulmonary Disease Exacerbation # SIRS Criteria (Tachypnea, Tachycardia) likely due to COPD Exacerbation - no evidence of infection # Tobacco Use Disorder No obvious trigger at this time. No evidence of infection. - Evaluation thus far: - Physical exam = faint end-expiratory wheezing throughout - VBG: pH 7.28, PCO2 85.8, PO2 61.1 - Chest x-ray = "no acute abnormalities displayed" - CT chest angiogram = "negative for a pulmonary embolism." - Plan: - Pulmonology consulted and spoke with Dr. Cedillo - recommendations appreciated - Steroids and bronchodilators per Pulm - Consulted Respiratory Therapy - Supplemental oxygen to maintain SpO2 > 92% - Assess inhaler technique one improved from COPD exacerbation - Encouraged incentive spirometry - Tobacco cessation counseling # Paroxysmal Atrial Fibrillation - Continue home carvedilol, rivaroxaban # Acute on Chronic Decompensated Systolic Congestive Heart Failure # History of Cerebrovascular Accident # Hypertension - Consult Cardiology - recommendations appreciated - NT-Pro BNP = 1160 - Transthoracic echocardiogram (02/2018) = "moderate global hypokinesis. left ventricular ejection fraction 35-40%. no thrombus. no vegetation." - Repeat transthoracic echocardiogram pending - Bilateral upper extremity Doppler = "no evidence of DVT in the bilateral upper extremities. Edema and subcutaneous soft tissue swelling particularly along the forearms bilaterally. Please correlate clinically for evidence of cellulitis." - Diuresis with furosemide - transition from IV to PO - Continue home atorvastatin, carvedilol - Daily weights - Strict I/O - Cardiac diet, 2 L fluid restriction, 2 g Na restriction Ren Mcgraw M.D.
--- NOTE | 2023-03-23 16:58 | CON ---
Date of Consultation: 03/23/2023 Reason For Consultation: To evaluate for congestive heart failure. History Of Present Illness: This is a 62-year-old male with past medical history of COPD, paroxymal atrial fibrillation, hypertension, CVA, history of defibrillator in place, presented to the emergency room with shortness of breath. He does have significant COPD and he has been coughing and was hypox ic, managed for COPD and he has done much better, and I was consulted to evaluate for the presence of congestive heart failure. At the time of evaluation, he has no shortness of breath, no edema, no or thopnea, no chest pain. Past Medical History: As outlined above in the HPI. Medications: Refer to reconciliation sheet for detailed list. Allergies: NO KNOWN DRUG ALLERGIES. Family History: No premature coronary artery disease or cancer. Social History: He is an ex-smoker. Does not drink or use any drugs. Review of Systems: All systems reviewed and they were negative except what mentioned in HPI. Physical Examination: Vital Signs: Reviewed. Head and Neck: Pupils are equal, reactive to light. Intact eye movements. No JVD. No cervical lym phadenopathy. Neck is supple. Thyroid is not enlarged. Lungs: Clear to auscultation bilaterally. No rhonchi, wheezing, or crackles. No accessory muscle u se. Heart: Regular rate and rhythm. No extra sounds. Abdomen: Soft, nontender. Bowel sounds positive. No organomegaly. No masses or hernia. No rigidi ty or rebound. Extremities: No edema, clubbing, or cyanosis. Intact pulses. Skin: No rash. Neurologic: Alert, awake, oriented x3. No acute focal deficits appreciated. Investigations: Troponins are negative and his BUN is 26, creatinine 0.77, hemoglobin is 11.7. Assessment And Recommendations: 1.Shortness of breath. This was predominantly due to the chronic obstructive pulmonary disease exac erbation. He appears to be doing much better. 2.Chronic congestive heart failure. He appears to be euvolemic. Agree with Lasix 40 mg daily. Obt ain an echo to evaluate the ejection fraction and continue Coreg and Lasix by mouth. 3.Dyslipidemia. Continue statin. 4.Atrial fibrillation. Rate is controlled on anticoagulants. Continue current management. SR/MODL Voice ID: [id number] Report ID: [id number]
[2023-03-23] MEDS: ATORVASTATIN 80 MG TAB PO SCH (20:35)
[2023-03-23] MEDS: IPRATROPIUM BROM 0.5MG/2.5ML NEB PRN (20:35)
[2023-03-23] MEDS: ALBUTEROL 2.5 MG/3 ML NEB SOL NEB PRN (20:35)
[2023-03-23] MEDS: MELATONIN 5 MG TABLET PO PRN (20:37)
[2023-03-24] MEDS: ACETAMINOPHEN 500 MG TAB PO PRN (02:15)
[2023-03-24 04:48] VITALS: O2SAT 96
[2023-03-24 05:24] LABS: Potassium 3.7 mEq/L (3.5-5.1)
[2023-03-24 06:10] LABS: Phosphorus 2.9 mg/dL (2.5-4.9)
[2023-03-24] MEDS ORDERED: POTASSIUM 25 MEQ EFFERV TAB PO ONE (09:00)
[2023-03-24] MEDS: DULERA 200/5 (MOMETASONE/FORMOTEROL) INHALER IH SCH (09:55)
[2023-03-24] MEDS: carvediloL 3.125 MG TAB PO SCH (09:56)
[2023-03-24] MEDS: MEMANTINE HCL 10 MG TABLET PO SCH (09:56)
[2023-03-24] MEDS: predniSONE 20 MG TAB PO SCH (09:56)
[2023-03-24] MEDS: FUROSEMIDE 40 MG TABLET PO SCH (09:56)
[2023-03-24] MEDS: ASPIRIN EC 81 MG TAB PO SCH (09:56)
[2023-03-24] MEDS: PANTOPRAZOLE 40MG TABLET PO SCH (09:56)
[2023-03-24] MEDS: RIVAROXABAN 15 MG TABLET PO SCH (09:56)
[2023-03-24 12:17] VITALS: BP 136/70; TEMP 97.5
--- NOTE | 2023-03-24 12:45 | ECHO ---
HEIGHT: 5 ft 10 in WEIGHT: 148 lb 14.4 oz DATE OF STUDY: 03/24/[address]: Ren Mcgraw MD 2-DIMENSIONAL: YES M.MODE: YES DOPPLER: YES COLOR FLOW: YES TDS: PORTABLE: YES DEFINITY: BUBBLE STUDY: DIAGNOSIS: CONGESTIVE HEART FAILURE CARDIAC HISTORY: CATHERIZATION: SURGERY: PROSTHETIC VALVE: PACEMAKER: MEASUREMENTS (cm) DIASTOLIC (NORMALS) SYSTOLIC (NORMALS) IVSd 0.9 (0.6-1.2) LA Diam 3.5 (1.9-4.0) LVEF 55% LVIDd 3.8 (3.5-5.7) LVIDs 2.9 (2.0-3.5) %FS 26% LVPWd 0.9 (0.6-1.2) Ao Diam 3.4 (2.0-3.7) 2 DIMENSIONAL ASSESSMENT: RIGHT ATRIUM: NORMAL LEFT ATRIUM: NORMAL RIGHT VENTRICLE: NORMAL LEFT VENTRICLE: NORMAL TRICUSPID VALVE: MILD TRICUSPID REGURGITATION MITRAL VALVE: MILD MITRAL REGURGITATION PULMONIC VALVE: NORMAL AORTIC VALVE: NORMAL PERICARDIAL EFFUSION: NONE AORTIC ROOT: NORMAL LEFT VENTRICULAR WALL MOTION: NORMAL DOPPLER/COLOR FLOW: MILD TRICUSPID REGURGITATION/ MILD MITRAL REGURGITATION COMMENTS: 1. NORMAL LEFT VENTRICULAR EJECTION FRACTION 55-60% 2. NORMAL WALL MOTION 3. NORMAL DIASTOLIC FUNCTION 4. RIGHT VENTRICULAR SYSTOLIC PRESSURE IS NORMAL 20-25 mmHg 5. MILD TRICUSPID REGURGITATION 6. MILD MITRAL REGURGITATION TECHNOLOGIST: SAGRARIO WATT
--- NOTE | 2023-03-24 20:50 | P.DS ---
Admission Date: 03/20/23 Discharge Date: 03/24/23 Disposition: ROUTINE DISCHARGE Discharge Condition: GOOD Reason for Admission: COPD exacerbation Consultations: 1. Pulmonology 2. Cardiology Hospital Course: DIAGNOSES: # Acute on Chronic Hypercapnic, Hypoxemic Respiratory Failure due to Acute Chronic Obstructive Pulmonary Disease Exacerbation # Acute on Chronic Decompensated Diastolic Congestive Heart Failure # SIRS Criteria (Tachypnea, Tachycardia) likely due to above - no evidence of infection # Tobacco Use Disorder # Paroxysmal Atrial Fibrillation # History of Cerebrovascular Accident # Hypertension HOSPITAL COURSE: Mr. Juan C Monge is a 62-year-old male with a past medical history significant for chronic respiratory failure due to chronic obstructive pulmonary disease, atrial fibrillation, chronic congestive heart failure, prior cerebrovascular accident, and hypertension who was admitted to the [facility] on 03/20/2023 for shortness of breath. He was admitted to the Medicine service. Upon further evaluation, his chest x- ray revealed, "no acute abnormalities displayed." His CT chest angiogram revealed, "negative for a pulmonary embolism." His transthoracic echocardiogram revealed, "1. normal left ventricular ejection fraction 55-60% 2. normal wall motion 3. normal diastolic function 4. right ventricular systolic pressure is normal 20-25 mmHg 5. mild tricuspid regurgitation 6. mild mitral regurgitation." He was found to have acute on chronic hypercapnic hypoxemic respiratory failure thought to be due a combination of COPD as well as a decompensated CHF exacerbation. Pulmonology and Cardiology were consulted. He was evaluated by Dr. Cedillo and Dr. Pandya, respectively. He was treated with steroids, bronchodilators, and IV furosemide. Over the course of his hospitalization, his symptoms improved significantly. Today, he ambulated around the nursing station, without any issues. He stated that he had issues with his home oxygen and, with the assistance of case management, home oxygen supplies were arranged. On 03/24/2023, he was seen on rounds and deemed medically stable for discharge. He was discharged with instructions to schedule follow-up appointments with his PCP (Dr. Ramirez), with Cardiology (Dr. Pandya), and with Pulmonology (Dr. Cedillo). He was provided prescriptions for prednisone and furosemide. Dr. Cedillo provided him with a sample of Dulera to try. He was given the opportunity to ask questions and reported no further questions. Furthermore, all questions were answered to the best of my ability. A copy of this discharge summary will be sent to the above providers to facilitate continuity of care. Today, I personally spent 25 minutes on his case, of which greater than 50% of the time was spent in patient education, counseling, and coordination of care as described above. - Physical Exam General: Alert, In no apparent distress, Oriented x3 HEENT: Atraumatic, Mucous membr. moist/pink, Sclerae nonicteric Respiratory: Diminished, but clear to auscultation bilaterally Cardiovascular: Regular rate/rhythm, No murmurs, No edema Gastrointestinal: Normal bowel sounds, Soft, Non-distended, No tenderness Musculoskeletal: No clubbing Integumentary: No rashes Neurological: Normal speech, Normal affect Vital Signs/Physical Exam: Temp Pulse Resp BP Pulse Ox 97.5 F 97 H 18 136/70 98 03/24/23 12:00 03/24/23 12:00 03/24/23 12:00 03/24/23 12:00 03/24/23 12:00 Laboratory Data at Discharge: WBC 8.80 thou/uL (4.3-10.9) 03/21/23 05:09 Hgb 11.7 g/dL (13.6-17.9) L 03/21/23 05:09 Hct 35.3 % (39.6-49.0) L 03/21/23 05:09 Plt Count 193 thou/uL (152-406) 03/21/23 05:09 PT 11.0 SECONDS (9.5-12.5) 03/21/23 05:09 INR 1.00 03/21/23 05:09 APTT 25.4 SECONDS (24.3-36.9) 03/21/23 05:09 Sodium 138 mEq/L (136-145) 03/24/23 03:58 Potassium 3.7 mEq/L (3.5-5.1) 03/24/23 03:58 BUN 37 mg/dL (7-18) H 03/24/23 03:58 Creatinine 0.84 mg/dL (0.70-1.30) 03/24/23 03:58 Glucose 208 mg/dL (74-106) H 03/24/23 03:58 Phosphorus Cancelled 03/24/23 06:00 Magnesium Cancelled 03/24/23 06:00 Total Bilirubin 0.3 mg/dL (0.2-1.0) 03/21/23 05:09 AST 5 U/L (15-37) L 03/21/23 05:09 ALT 18 U/L (16-61) 03/21/23 05:09 Alkaline Phosphatase 52 U/L (45-117) 03/21/23 05:09 Triglycerides 57 mg/dL (<150) 03/21/23 05:09 Cholesterol 119 mg/dL (<200) 03/21/23 05:09 HDL Cholesterol 54 mg/dL (40-60) 03/21/23 05:09 Cholesterol/HDL Ratio 2.20 03/21/23 05:09 Home Medications: Aspirin [Aspirin EC 81 MG] 81 mg PO DAILY #30 tablet. 03/14/18 Benazepril HCl [Lotensin*] 10 mg PO DAILY #30 tab 03/14/18 Albuterol Neb [Proventil 0.083% Neb Soln] 1 inh Q4H PRN 03/20/23 Atorvastatin Calcium [Lipitor] 40 mg PO BEDTIME 03/20/23 Carvedilol [Coreg] 1 tab PO BID 03/20/23 Ipratropium [place] 500 mcg Q6H 03/20/23 Memantine HCl [Namenda] 1 tab PO DAILY 03/20/23 Omeprazole [Prilosec] 1 tab PO DAILY 03/20/23 Potassium Chloride [Micro-K] 1 tab PO DAILY 03/20/23 Rivaroxaban [Xarelto*] 1 tab PO DAILY 03/20/23 Fluticasone/Umeclidin/Vilanter [Trelegy Ellipta 200-62.5-25] 1 each IH DAILY 30 Days #30 aero 03/21/23 Furosemide [Lasix*] 40 mg PO DAILY #30 tab 03/24/23 predniSONE [Prednisone*] 20 mg PO BID 5 Days #10 tab 03/24/23 New Medications: Furosemide [Lasix*] 40 mg PO DAILY #30 tab predniSONE [Prednisone*] 20 mg PO BID 5 Days #10 tab Fluticasone/Umeclidin/Vilanter [Trelegy Ellipta 200-62.5-25] 1 each IH DAILY 30 Days #30 aero Physician Discharge Instructions: 1. Please call and schedule a follow-up appointment with your PCP (Dr. Ramirez) in 3-5 days - You were found to have a mild anemia. Please discuss with your PCP for further evaluation. 2. Please call and schedule a follow-up appointment with Cardiology (Dr. Pandya) in 5-7 days 3. Please call and schedule a follow-up appointment with Pulmonology (Dr. Dar cui) in 5-[address] Cedillo: - I have faxed in a prescription for Trelegy if it is covered patient to stop taking Advair Dulera from the hospital [place] Patient [phone], please call when discharged to have your portable tank and concentrator checked. Diet: AHA Activity: Ad dione Followup: Dameon Cedillo MD [ACTIVE - CAN ADMIT] - 1-2 Weeks James BHARDWAJ,Luís H, [Primary Care Provider] - Ric Pandya MD [ACTIVE - CAN ADMIT] - Time spent managing pt's care (in minutes): 25
--- NOTE | 2023-03-24 21:13 | PN ---
Date of Progress Note: 03/24/2023 Subjective: Seen by bedside. Doing clinically well. Does not have any chest pain or shortness of b reath. Review of Systems: No chest pain or shortness of breath. No nausea, vomiting, or diarrhea. No abdominal pain. No dysu asya, polyuria, or urinary urgency. All other systems reviewed are negative. Objective: Vital signs: Reviewed. Head and Neck: Pupils are equal, reactive to light. Intact eye movements. No JVD. No cervical lym phadenopathy. Neck is supple. Thyroid is not enlarged. Lungs: Clear to auscultation. Scattered wheezing is present, however. No accessory muscle use or m uscle retraction. No rhonchi. Heart: Irregular. No extra sounds. Abdomen: Soft, nontender. Bowel sounds positive. No organomegaly. No masses or hernia. No rigidi ty or rebound. Extremities: No edema, clubbing, or cyanosis. Intact pulses. Skin: No rash. Neurologic: Alert, awake, oriented x3. No acute focal deficits appreciated. Investigations: Labs were reviewed. Assessment And Recommendations: 1.Shortness of breath due to chronic obstructive pulmonary disease exacerbation and doing much gary r. 2.Chronic congestive heart failure and the patient is euvolemic. Continue oral Lasix. Patient can be followed up as an outpatient. From a cardiovascular standpoint, he can be released. 3.Atrial fibrillation, rate is controlled and on anticoagulant. Continue current management. Cardi ology will sign off. SR/MODL Voice ID: [id number] Report ID: [id number]
== END 2023-03-24 16:00 | disposition home or self-care (01) | DRG 291 ==
LOC: ER 12:20 → ERHOLD 17:09 → 4TH 18:52
PROVIDERS: ADMIT Hospitalist; ATTEND Internal Medicine
DX: I11.0 Hypertensive heart disease with heart failure (principal); I50.33 Acute on chronic diastolic (congestive) heart failure; J96.21 Acute and chronic respiratory failure with hypoxia; J96.22 Acute and chronic respiratory failure with hypercapnia; J44.1 Chronic obstructive pulmonary disease with (acute) exacerbation; R65.10 Systemic inflammatory response syndrome (SIRS) of non-infectious origin without acute organ dysfunction; E78.5 Hyperlipidemia, unspecified; I08.1 Rheumatic disorders of both mitral and tricuspid valves; I48.0 Paroxysmal atrial fibrillation; F17.200 Nicotine dependence, unspecified, uncomplicated; I25.2 Old myocardial infarction; Z90.49 Acquired absence of other specified parts of digestive tract; Z79.52 Long term (current) use of systemic steroids; Z79.82 Long term (current) use of aspirin; Z79.01 Long term (current) use of anticoagulants; Z99.81 Dependence on supplemental oxygen; Z86.73 Personal history of transient ischemic attack (TIA), and cerebral infarction without residual deficits; Z95.810 Presence of automatic (implantable) cardiac defibrillator; Z79.899 Other long term (current) drug therapy
CPT/HCPCS: 36415; 71045; 71275; 80048; 80053; 80061; 82805; 83605; 83735; 83880; 84100; 84439; 84443; 84484; 85025; 85610; 85730; 87040; 93005; 93306; 93970; 94010; 94760; 96374; 97161; 99285; J0696; J1100; J1940; J2930; J3475; J3535; J7030; J7512; J7613; J7644; Q9967

== ENCOUNTER 2023-04-02 09:29 | Observation (INO) | payer OTHER ==
--- OUTSIDE RECORDS SUMMARY | 2023-04-02 09:49 | XMS REPORT | Continuity of Care Document ---
:1960 Author Organization [facility] t Address [address] [place] [address] Care Team Providers Name Role Phone Mily Goodwin MD Primary Care Physician [phone] [place] Attending Clinician Unavailable MARELY WATTERS Attending Clinician Unavailable MARELY WATTERS Attending Clinician Unavailable Rudy Xiao Attending Clinician Unavailable CARL ORLANDO Attending Clinician Unavailable CARL ORLANDO Attending Clinician Unavailable MILY GOODWIN Attending Clinician Unavailable Doctor Unassigned, [place] Attending Clinician Unavailable Mily Goodwin MD Attending Clinician [phone] Taylor Frye RN Attending Clinician Unavailable TRAVIS [...] NOMI MARY Attending Clinician Unavailable Jem SAWYER, Dedrikc Colin Attending Clinician Cecy Caro LVN Attending [...] A Attending Clinician Unavailable Chris ZAMORA, Herminia Apple Attending Clinician Unavailable Tyrell Mckeon Attending Clinician [...] Type Policy Number Effective Date Expiration Date [facility] [id number] 2018 MEDICARE GOLD 00:00:00 Problems Condition Condition Condition Status Onset Resolution Last Treating Co mments Source Name Details Category Date Date Treatment Clinician Date 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 02-16 it y of ion ion 00:00: [address] Branch Hypotensio Hypotensio Disease Active U [...] nivers failure failure 2- ity of 00:00: [place] [address] Medical Branch Closed Closed Disease Active 2013-09 Overview: Univer s fracture fracture 2-13 [place] ity of of zygoma of zygoma 00:00: g of this [place] 00 note Medical might be Branch different from the original. Chronic Fracture - not acute Fall Fall Disease Active 2013-09 Univers 2-12 ity of 00:00: [place] [address] Medical Branch Atrial Atrial Disease Active 2013-09 Univers fibrillati fibrillati 10-28 it y of on on 00:00: [place] [address] Medical Branch VT VT Disease Active 2013-09 Univers (ventricul (ventricul 10-28 it y of ar ar 00:00: [place] tachycardi tachycardi 00 Me dical a) a) Branch Allergies, Adverse Reactions, Alerts Allergy Allergy Status Severity Reaction(s) Onset Inactive Treating Comm ents Source Name Type Date Date Clinician No Known DA Active U 2019-09 [facility]01 [facility] 00:00: [address] No Known DA Active U 2019-09 [facility] Allergie 0-01 [facility] 00:00: [address] NO KNOWN Drug Active [facility] ALLERGIE Class ity of S [place] [facility] Social History Social Habit Start Date Stop Date Quantity Comments Source History of tobacco Passive smoker Un iversity of use [place] [facility] History SDOH Social Unive rsity of [facility] Med ical Together Branch History SDOH Social Unive rsity of [facility] Medical Branch History SDOH Social Unive rsity of [facility] Medical Membership Branch History SDOH Social Unive rsity of [facility] Medical Meetings Branch Alcohol intake 2023-03-01 2023-03-01 Current drinker Unive rsity of 00:00:00 00:00:00 of alcohol [place] [facility] (finding) Branch History SDOH 2023-02-18 2023-02-18 2 University o f Housing Unable to 00:00:00 00:00:00 [place] M edical Pay Branch History SDOH 2023-02-18 2023-02-18 1 University o f Housing Places 00:00:00 00:00:00 [place] Medi lucho Lived Branch History SDOH 2023-02-18 2023-02-18 2 University o f Housing Homeless 00:00:00 00:00:00 [facility] dical Last Year Branch History SDTX 2023-02-18 2023-02-18 1 University o f Alcohol Frequency 00:00:00 00:00:00 [place] M edical Branch History SDOH Social 2023-02-18 2023-02-18 5 Unive rsity of Connections Phone 00:00:00 00:00:00 [facility] edical Branch History SDOH Social 2023-02-18 2023-02-18 7 Unive rsity of Connections Living 00:00:00 00:00:00 [place] [facility] History SDOH 2023-02-18 2023-02-18 0 University o f Physical Activity 00:00:00 00:00:00 [facility] edical DPW Branch History SDTX 2023-02-18 2023-02-18 0 University o f Physical Activity 00:00:00 00:00:00 [facility] edical MPS Branch History SDTX 2023-02-18 2023-02-18 5 University o f Financial 00:00:00 00:00:00 [place] [facility] History SDTX Food 2023-02-18 2023-02-18 1 Univers ity of Worry 00:00:00 00:00:00 [place] [facility] History SDTX Food 2023-02-18 2023-02-18 1 Univers ity of Scarcity 00:00:00 00:00:00 [place] [facility] History SDOH 2023-02-18 2023-02-18 2 University o f Transport Med 00:00:00 00:00:00 [place] [facility] al Branch History SDTX 2023-02-18 2023-02-18 2 University o f Transport Non-Med 00:00:00 00:00:00 [facility] edical Branch Exposure to 2023-02-05 2023-02-15 Not sure University of SARS-CoV-2 (event) 00:00:00 15:15:00 [place] [facility] History SDTX 2022-12-02 2022-12-02 3 University o f Alcohol Std Drinks 00:00:00 00:00:00 [place] [facility] History SDOH 2022-12-02 2022-12-02 1 University o f Alcohol Binge 00:00:00 00:00:00 [place] [facility] Cigarettes smoked 2022-11-09 2022-11-09 Univers ity of current (pack per 00:00:00 00:00:00 ) - Reported Branch Tobacco use and 2022-11-09 2022-11-09 User of Universit y of exposure 00:00:00 00:00:00 smokeless [facility] tobacco Branch Education 2022-11-09 2022-11-09 13 University of 00:00:00 00:00:00 [facility] Alcohol Comment 2014-08-27 2014-08-27 8 drinks per day Uni versity of 00:00:00 00:00:00 [facility] Sex [birth year] At [birth year] Universit y of 00:00:00 00:00:00 [facility] Smoking Status Start Date Stop Date Source Smokes tobacco daily 2022-11-09 00:00:00 [facility] ity [facility] Medications Ordered Filled Start Stop Current Ordering Indication Dosage Frequency Signature Comments Components Source Medication Medication Date Date Medication? Clinician (SIG) Name Name albuterol Yes [id number] 2.5mg Inhale 3 Univers 2.5 mg /3 6-15 mL every 4 ity of mL (0.083 00:00: (four) [place] %) 00 hours. May Medical nebulizer also Branch solution nebulize one extra every 6 hours. donepeziL 5 Yes [id number] 5mg Take 1 Univers mg tablet 6-13 tablet by ity o f 00:00: mouth in [place] 00 the Medical morning. Branch memantine 5 0 Yes [id number] 5mg Take 1 Univers mg tablet 6-13 tablet by ity o f 00:00: mouth in [place] 00 the Medical morning. Branch donepeziL 5 0 Yes [id number] 5mg Take 1 Univers mg tablet 6-13 tablet by ity o f 00:00: mouth in [place] 00 the Medical morning. Branch memantine 5 2022-0 Yes [id number] 5mg Take 1 Univers mg tablet 6-13 tablet by ity o f 00:00: mouth in [place] 00 the Medical morning. Branch donepeziL 5 2022-0 Yes [id number] 5mg Take 1 Univers mg tablet 6-13 tablet by ity o f 00:00: mouth in [place] 00 the Medical morning. Branch memantine 5 2022-0 Yes [id number] 5mg Take 1 Univers mg tablet 6-13 tablet by ity o f 00:00: mouth in [place] [address] the Medical morning. Branch busPIRone 2023-0 Yes 10mg Take 1 Univer s 10 mg 6-02 tablet by ity of tablet 16:15: mouth in [place] [address] the Medical morning Branch and 1 tablet in the evening. rivaroxaban 2023-0 Yes 15mg Take 1 Univ ers 15 mg 6-02 tablet by ity of tablet 16:15: mouth in [place] [address] the Medical morning. Branch ASPIRIN 2023-0 Yes 81mg Take 81 mg Univ ers ORAL 6-02 by mouth ity of 16:15: in the [place] [address] morning. Medical tablet Branch busPIRone 2023-0 Yes 10mg Take 1 Univer s 10 mg 6-02 tablet by ity of tablet 16:15: mouth in [place] [address] the Medical morning Branch and 1 tablet in the evening. rivaroxaban 2023-0 Yes 15mg Take 1 Univ ers 15 mg 6-02 tablet by ity of tablet 16:15: mouth in [place] [address] the Medical morning. Branch ASPIRIN 2023-0 Yes 81mg Take 81 mg Univ ers ORAL 6-02 by mouth ity of 16:15: in the [place] [address] morning. Medical tablet Branch busPIRone 2023-0 Yes 10mg Take 1 Univer s 10 mg 6-02 tablet by ity of tablet 16:15: mouth in [place] [address] the Medical morning Branch and 1 tablet in the evening. rivaroxaban 2023-0 Yes 15mg Take 1 Univ ers 15 mg 6-02 tablet by ity of tablet 16:15: mouth in [place] [address] the Medical morning. Branch ASPIRIN 2023-0 Yes 81mg Take 81 mg Univ ers ORAL 6-02 by mouth ity of 16:15: in the [place] [address] morning. Medical tablet Branch busPIRone 2023-0 Yes 10mg Take 1 Univer s 10 mg 6-02 tablet by ity of tablet 16:15: mouth in [place] [address] the Medical morning Branch and 1 tablet in the evening. rivaroxaban 2023-0 Yes 15mg Take 1 Univ ers 15 mg 6-02 tablet by ity of tablet 16:15: mouth in [place] [address] the Medical morning. Branch ASPIRIN 2023-0 Yes 81mg Take 81 mg Univ ers ORAL 6-02 by mouth ity of 16:15: in the [place] [address] morning. Medical tablet Branch busPIRone 2023-0 Yes 10mg Take 1 Univer s 10 mg 6-02 tablet by ity of tablet 16:15: mouth in [place] [address] the Medical morning Branch and 1 tablet in the evening. rivaroxaban 2023-0 Yes 15mg Take 1 Univ ers 15 mg 6-02 tablet by ity of tablet 16:15: mouth in [place] [address] the Medical morning. Branch ASPIRIN 2023-0 Yes 81mg Take 81 mg Univ ers ORAL 6-02 by mouth ity of 16:15: in the [place] [address] morning. Medical tablet Branch busPIRone 2023-0 Yes 10mg Take 1 Univer s 10 mg 6-02 tablet by ity of tablet 16:15: mouth in [place] [address] the Medical morning Branch and 1 tablet in the evening. rivaroxaban 2023-0 Yes 15mg Take 1 Univ ers 15 mg 6-02 tablet by ity of tablet 16:15: mouth in [place] [address] the Medical morning. Branch ASPIRIN 3-0 Yes 81mg Take 81 mg Univ ers ORAL 6-02 by mouth ity of 16:15: in the [place] [address] morning. Medical tablet Branch busPIRone 3-0 Yes 10mg Take 1 Univer s 10 mg 6-02 tablet by ity of tablet 16:15: mouth in [place] [address] the Medical morning Branch and 1 tablet in the evening. rivaroxaban 2023-0 Yes 15mg Take 1 Univ ers 15 mg 6-02 tablet by ity of tablet 16:15: mouth in [place] [address] the Medical morning. Branch ASPIRIN 3-0 Yes 81mg Take 81 mg Univ ers ORAL 6-02 by mouth ity of 16:15: in the [place] [address] morning. Medical tablet Branch predniSONE 2023-0 2023- Yes [id number] 40mg Take 2 Univers 20 mg 6-02 06-06 tablets by ity of tablet 00:00: 04:59 mouth in [place] 00 :00 the Medical morning Branch for 3 days. predniSONE 2023-0 2023- Yes [id number] 40mg Take 2 Univers 20 mg 6-02 06-06 tablets by ity of tablet 00:00: 04:59 mouth in [place] 00 :00 the Medical morning Branch for 3 days. predniSONE 2023-0 2023- Yes [id number] 40mg Take 2 Univers 20 mg 6-02 06-06 tablets by ity of tablet 00:00: 04:59 mouth in [place] 00 :00 the Medical morning Branch for 3 days. midodrine 5 2022-0 Yes [id number] 5mg Take 1 Univers mg tablet 6-01 tablet by ity o f 00:00: mouth [place] 00 every 8 Medical (eight) Branch hours as needed (Hypotensi on SBP <95 or DBP <50). midodrine 5 2022-0 Yes [id number] 5mg Take 1 Univers mg tablet 6-01 tablet by ity o f 00:00: mouth [place] 00 every 8 Medical (eight) Branch hours as needed (Hypotensi on SBP <95 or DBP <50). midodrine 5 2022-0 Yes [id number] 5mg Take 1 Univers mg tablet 6-01 tablet by ity o f 00:00: mouth [place] 00 every 8 Medical (eight) Branch hours as needed (Hypotensi on SBP <95 or DBP <50). midodrine 5 2022-0 Yes [id number] 5mg Take 1 Univers mg tablet 6-01 tablet by ity o f 00:00: mouth [place] 00 every 8 Medical (eight) Branch hours as needed (Hypotensi on SBP <95 or DBP <50). midodrine 5 2022-0 Yes [id number] 5mg Take 1 Univers mg tablet 6-01 tablet by ity o f 00:00: mouth [place] 00 every 8 Medical (eight) Branch hours as needed (Hypotensi on SBP <95 or DBP <50). midodrine 5 2022-0 Yes [id number] 5mg Take 1 Univers mg tablet 6-01 tablet by ity o f 00:00: mouth [place] 00 every 8 Medical (eight) Branch hours as needed (Hypotensi on SBP <95 or DBP <50). midodrine 5 2022-0 Yes [id number] 5mg Take 1 Univers mg tablet 6-01 [...] Tue02/16/23 at 0900, Until Discontinu ed, Routine
family member caretaker approving Restricted medication : DEDRICK TOTH donepeziL [...] Tue02/20/23 at 0900, Routine sulfur 2022- No [id number] 5mL 5 mL, Unive rs hexafluorid 02-16 Intravenou i ty of e microsphr 14:00: 14:00 s, ONCE, 1 [place] (LUMASON) 00 :00 dose, On Medica l injection 5 Tue Branch mL 02/16/23 at 0900, Routine
family member caretaker approving Restricted medication : STEFFANIE REYES budesonide- [...] of succ 05:43: 05:51 s, ONCE, 1 [place] (SOLU-MEDRO 00 :00 dose, On Medi lucho [...] mg 02/04/23 at 1615, MICHAEL albuterol Yes [id number] 2{puff} Inhale 2 Univers 90 5-19 Puffs ity of mcg/actuati 00:00: every 4 [place] as on inhaler 00 (four) Medical hours as Branch needed for Wheezing or Shortness of Breath. albuterol Yes [id number] 2{puff} Inhale 2 Univers 90 5-19 Puffs ity of mcg/actuati 00:00: every 4 [place] as on inhaler 00 (four) Medical hours as Branch needed for Wheezing or Shortness of Breath. albuterol Yes [id number] 2{puff} Inhale 2 Univers 90 5-19 Puffs ity of mcg/actuati 00:00: every 4 [place] as on inhaler 00 (four) Medical hours as Branch needed for Wheezing or Shortness of Breath. albuterol Yes [id number] 2{puff} Inhale 2 Univers 90 5-19 Puffs ity of mcg/actuati 00:00: every 4 [place] as on inhaler 00 (four) Medical hours as Branch needed for Wheezing or Shortness of Breath. albuterol Yes [id number] 2{puff} Inhale 2 Univers 90 5-19 Puffs ity of mcg/actuati 00:00: every 4 [place] as on inhaler 00 (four) Medical hours as Branch needed for Wheezing or Shortness of Breath. albuterol Yes [id number] 2{puff} Inhale 2 Univers 90 5-19 Puffs ity of mcg/actuati 00:00: every 4 [place] as on inhaler 00 (four) Medical hours as Branch needed for Wheezing or Shortness of Breath. albuterol 0 Yes [id number] 2{puff} Inhale 2 Univers 90 5-19 Puffs ity of mcg/actuati 00:00: every 4 [place] as on inhaler 00 (four) Medical hours as Branch needed for Wheezing or Shortness of Breath. albuterol 0 Yes [id number] 2{puff} Inhale 2 Univers 90 5-19 Puffs ity of mcg/actuati 00:00: every 4 [place] as on inhaler 00 (four) Medical hours as Branch needed for Wheezing or Shortness of Breath. albuterol 0 Yes [id number] 2{puff} Inhale 2 Univers 90 5-19 Puffs ity of mcg/actuati 00:00: every 4 [place] as on inhaler 00 (four) Medical hours as Branch needed for Wheezing or Shortness of Breath. albuterol 0 Yes [id number] 2{puff} Inhale 2 Univers 90 5-19 Puffs [...] of succ 18:45: 18:16 s, ONCE, 1 [place] (SOLU-MEDRO 00 :00 dose, On Medi lucho [...] solution 3 Routine mL albuterol 2022-0 Yes [id number] 2{puff} Inhale 2 Univers 90 5-15 Puffs ity of mcg/actuati 00:00: every 4 [place] as on inhaler 00 (four) Medical hours as Branch needed for Wheezing, Shortness of Breath or Bronchospa sm. fluticasone 2022-0 Yes [id number] 1{puff} Inhale 1 Univers propion-bella 5-15 Puff in ity o f meteroL 00:00: the [place] (ADVAIR 00 morning Medical DISKUS) and 1 Puff Branch 250-50 in the mcg/dose evening. inhalation disk montelukast 2022-0 Yes [id number] 10mg Take 1 Univers 10 mg 5-15 tablet by ity of tablet 00:00: mouth in [place] 00 the Medical morning. Branch tiotropium 2022-0 Yes [id number] 18ug Inhale 1 Univers 18 mcg 5-15 capsule in ity of inhalation 00:00: the [place] 00 morning. Medical Branch albuterol 2022-0 Yes [id number] 2{puff} Inhale 2 Univers 90 5-15 Puffs ity of mcg/actuati 00:00: every 4 [place] as on inhaler 00 (four) Medical hours as Branch needed for Wheezing, Shortness of Breath or Bronchospa sm. fluticasone 2022-0 Yes [id number] 1{puff} Inhale 1 Univers propion-bella 5-15 Puff in ity o f meteroL 00:00: the [place] (ADVAIR 00 morning Medical DISKUS) and 1 Puff Branch 250-50 in the mcg/dose evening. inhalation disk montelukast 2022-0 Yes [id number] 10mg Take 1 Univers 10 mg 5-15 tablet by ity of tablet 00:00: mouth in [place] 00 the Medical morning. Branch tiotropium 2022-0 Yes [id number] 18ug Inhale 1 Univers 18 mcg 5-15 capsule in ity of inhalation 00:00: the [place] 00 morning. Medical Branch albuterol 2022-0 Yes [id number] 2{puff} Inhale 2 Univers 90 5-15 Puffs ity of mcg/actuati 00:00: every 4 [place] as on inhaler 00 (four) Medical hours as Branch needed for Wheezing, Shortness of Breath or Bronchospa sm. fluticasone 3-0 Yes [id number] 1{puff} Inhale 1 Univers propion-bella 5-15 Puff in ity o f meteroL 00:00: the [place] (ADVAIR 00 morning Medical DISKUS) and 1 Puff Branch 250-50 in the mcg/dose evening. inhalation disk montelukast 3-0 Yes [id number] 10mg Take 1 Univers 10 mg 5-15 tablet by ity of tablet 00:00: mouth in [place] the Medical morning. Branch tiotropium 2022-0 Yes [id number] 18ug Inhale 1 Univers 18 mcg 5-15 capsule in ity of inhalation 00:00: the [place] 00 morning. Medical Branch albuterol 2022-0 Yes [id number] 2{puff} Inhale 2 Univers 90 5-15 Puffs ity of mcg/actuati 00:00: every 4 [place] as on inhaler 00 (four) Medical hours as Branch needed for Wheezing, Shortness of Breath or Bronchospa sm. fluticasone 2022-0 Yes [id number] 1{puff} Inhale 1 Univers propion-bella 5-15 Puff in ity o f meteroL 00:00: the [place] (ADVAIR 00 morning Medical DISKUS) and 1 Puff Branch 250-50 in the mcg/dose evening. inhalation disk montelukast 3-0 Yes [id number] 10mg Take 1 Univers 10 mg 5-15 tablet by ity of tablet 00:00: mouth in [place] the morning. Branch tiotropium 3-0 Yes [id number] 18ug Inhale 1 Univers 18 mcg 5-15 capsule in ity of inhalation 00:00: the [place] 00 morning. Medical Branch fluticasone 2023-0 Yes [id number] 1{puff} Inhale 1 Univers propion-bella 5-15 Puff in ity o f meteroL 00:00: the [place] (ADVAIR 00 morning Medical DISKUS) and 1 Puff Branch 250-50 in the mcg/dose evening. inhalation disk montelukast 3-0 Yes [id number] 10mg Take 1 Univers 10 mg 5-15 tablet by ity of tablet 00:00: mouth in [place] 00 the Medical morning. Branch tiotropium 2022-0 Yes [id number] 18ug Inhale 1 Univers 18 mcg 5-15 capsule in ity of inhalation 00:00: the [place] 00 morning. Medical Branch fluticasone 2022-0 Yes [id number] 1{puff} Inhale 1 Univers propion-bella 5-15 Puff in ity o f meteroL 00:00: the [place] (ADVAIR 00 morning Medical DISKUS) and 1 Puff Branch 250-50 in the mcg/dose evening. inhalation disk montelukast 3-0 Yes [id number] 10mg Take 1 Univers 10 mg 5-15 tablet by ity of tablet 00:00: mouth in [place] 00 the Medical morning. Branch tiotropium 2022-0 Yes [id number] 18ug Inhale 1 Univers 18 mcg 5-15 capsule in ity of inhalation 00:00: the [place] 00 morning. Medical Branch fluticasone 2022-0 Yes [id number] 1{puff} Inhale 1 Univers propion-bella 5-15 Puff in ity o f meteroL 00:00: the [place] (ADVAIR 00 morning Medical DISKUS) and 1 Puff Branch 250-50 in the mcg/dose evening. inhalation disk montelukast 2022-0 Yes [id number] 10mg Take 1 Univers 10 mg 5-15 tablet by ity of tablet 00:00: mouth in [place] 00 the Medical morning. Branch tiotropium 2022-0 Yes [id number] 18ug Inhale 1 Univers 18 mcg 5-15 capsule in ity of inhalation 00:00: the [place] 00 morning. Medical Branch fluticasone 3-0 Yes [id number] 1{puff} Inhale 1 Univers propion-bella 5-15 Puff in ity o f meteroL 00:00: the [place] (ADVAIR 00 morning Medical DISKUS) and 1 Puff Branch 250-50 in the mcg/dose evening. inhalation disk montelukast 3-0 Yes [id number] 10mg Take 1 Univers 10 mg 5-15 tablet by ity of tablet 00:00: mouth in [place] 00 the Medical morning. Branch tiotropium 2022-0 Yes [id number] 18ug Inhale 1 Univers 18 mcg 5-15 capsule in ity of inhalation 00:00: the [place] 00 morning. Medical Branch fluticasone 2022-0 Yes [id number] 1{puff} Inhale 1 Univers propion-bella 5-15 Puff in ity o f meteroL 00:00: the [place] (ADVAIR 00 morning Medical DISKUS) and 1 Puff Branch 250-50 in the mcg/dose evening. inhalation disk montelukast 2022-0 Yes [id number] 10mg Take 1 Univers 10 mg 5-15 tablet by ity of tablet 00:00: mouth in [place] 00 the Medical morning. Branch tiotropium 2022-0 Yes [id number] 18ug Inhale 1 Univers 18 mcg 5-15 capsule in ity of inhalation 00:00: the [place] 00 morning. Medical Branch fluticasone 2022-0 Yes [id number] 1{puff} Inhale 1 Univers propion-bella 5-15 Puff in ity o f meteroL 00:00: the [place] (ADVAIR 00 morning Medical DISKUS) and 1 Puff Branch 250-50 in the mcg/dose evening. inhalation disk montelukast 2022-0 Yes [id number] 10mg Take 1 Univers 10 mg 5-15 tablet by ity of tablet 00:00: mouth in [place] the morning. Branch tiotropium 2022-0 Yes [id number] 18ug Inhale 1 Univers 18 mcg 5-15 capsule in ity of inhalation 00:00: the [place] 00 morning. Medical Branch fluticasone 2022-0 Yes [id number] 1{puff} Inhale 1 Univers propion-bella 5-15 Puff in ity o f meteroL 00:00: the [place] (ADVAIR 00 morning Medical DISKUS) and 1 Puff Branch 250-50 in the mcg/dose evening. inhalation disk montelukast 2022-0 Yes [id number] 10mg Take 1 Univers 10 mg 5-15 tablet by ity of tablet 00:00: mouth in [place] 00 the Medical morning. Branch tiotropium 2022-0 Yes [id number] 18ug Inhale 1 Univers 18 mcg 5-15 capsule in ity of inhalation 00:00: the [place] 00 morning. Medical Branch fluticasone 2022-0 Yes [id number] 1{puff} Inhale 1 Univers propion-bella 5-15 Puff in ity o f meteroL 00:00: the [place] (ADVAIR 00 morning Medical DISKUS) and 1 Puff Branch 250-50 in the mcg/dose evening. inhalation disk montelukast 2022-0 Yes [id number] 10mg Take 1 Univers 10 mg 5-15 tablet by ity of tablet 00:00: mouth in [place] 00 the Medical morning. Branch tiotropium 2022-0 Yes [id number] 18ug Inhale 1 Univers 18 mcg 5-15 capsule in ity of inhalation 00:00: the [place] 00 morning. Medical Branch fluticasone 2022-0 Yes [id number] 1{puff} Inhale 1 Univers propion-bella 5-15 Puff in ity o f meteroL 00:00: the [place] (ADVAIR 00 morning Medical DISKUS) and 1 Puff Branch 250-50 in the mcg/dose evening. inhalation disk montelukast 2022-0 Yes [id number] 10mg Take 1 Univers 10 mg 5-15 tablet by ity of tablet 00:00: mouth in [place] 00 the Medical morning. Branch tiotropium 2022-0 Yes [id number] 18ug Inhale 1 Univers 18 mcg 5-15 capsule in ity of inhalation 00:00: the [place] 00 morning. Medical Branch fluticasone 2022-0 Yes [id number] 1{puff} Inhale 1 Univers propion-bella 5-15 Puff in ity o f meteroL 00:00: the [place] (ADVAIR 00 morning Medical DISKUS) and 1 Puff Branch 250-50 in the mcg/dose evening. inhalation disk montelukast 2022-0 Yes [id number] 10mg Take 1 Univers 10 mg 5-15 tablet by ity of tablet 00:00: mouth in [place] 00 the Medical morning. Branch tiotropium 2022-0 Yes [id number] 18ug Inhale 1 Univers 18 mcg 5-15 capsule in ity of inhalation 00:00: the [place] 00 morning. Medical Branch albuterol 2022-0 2022- No [id number] 2{puff} Inhale 2 Univers 90 5-15 05-19 [...] 40 mg 00 :00 dose, On Medical [facility] 01/24/23 Branch at 1300, MICHAEL aspirin 2022-2022- No 325mg 325 mg, Unive rs tablet 325 01-24 Oral, ity of mg 18:00: 18:44 ONCE, 1 [place] 00 :00 dose, On Medical [facility] 01/24/23 Branch at 1300, STAT busPIRone 2023-0 Yes 10mg Take 1 Univer s 10 mg 5-08 tablet by ity of tablet 15:48: mouth in [place] [address] the Medical morning Branch and 1 tablet in the evening. rivaroxaban 2023-0 Yes 15mg Take 1 Univ ers 15 mg 5-08 tablet by ity of tablet 15:48: mouth in [place] [address] the Medical morning. Branch ASPIRIN 2023-0 Yes 81mg Take 81 mg Univ ers ORAL 5-08 by mouth ity of 15:48: in the [place] [address] morning. Medical tablet Branch busPIRone 2023-0 Yes 10mg Take 1 Univer s 10 mg 5-08 tablet by ity of tablet 15:48: mouth in [place] [address] the Medical morning Branch and 1 tablet in the evening. rivaroxaban 2023-0 Yes 15mg Take 1 Univ ers 15 mg 5-08 tablet by ity of tablet 15:48: mouth in [place] [address] the Medical morning. Branch ASPIRIN 2023-0 Yes 81mg Take 81 mg Univ ers ORAL 5-08 by mouth ity of 15:48: in the [place] [address] morning. Medical tablet Branch busPIRone 2023-0 Yes 10mg Take 1 Univer s 10 mg 5-08 tablet by ity of tablet 15:48: mouth in [place] [address] the Medical morning Branch and 1 tablet in the evening. rivaroxaban 2023-0 Yes 15mg Take 1 Univ ers 15 mg 5-08 tablet by ity of tablet 15:48: mouth in [place] [address] the Medical morning. Branch ASPIRIN 2023-0 Yes 81mg Take 81 mg Univ ers ORAL 5-08 by mouth ity of 15:48: in the [place] [address] morning. Medical tablet Branch busPIRone 2023-0 Yes 10mg Take 1 [facility] 10 mg 5-08 tablet by ity of tablet 15:48: mouth in [place] [address] the Medical morning Branch and 1 tablet in the evening. rivaroxaban 2023-0 Yes 15mg Take 1 Univ ers 15 mg 5-08 tablet by ity of tablet 15:48: mouth in [place] [address] the Medical morning. Branch ASPIRIN 2023-0 Yes 81mg Take 81 mg Univ ers ORAL 5-08 by mouth ity of 15:48: in the [place] [address] morning. Medical tablet Branch busPIRone 2023-0 Yes 10mg Take 1 [facility] 10 mg 5-08 tablet by ity of tablet 15:48: mouth in [place] [address] the Medical morning Branch and 1 tablet in the evening. rivaroxaban 2023-0 Yes 15mg Take 1 Univ ers 15 mg 5-08 tablet by ity of tablet 15:48: mouth in [place] [address] the Medical morning. Branch ASPIRIN 2023-0 Yes 81mg Take 81 mg Univ ers ORAL 5-08 by mouth ity of 15:48: in the [place] [address] morning. Medical tablet Branch busPIRone 2023-0 Yes 10mg Take 1 [facility] 10 mg 5-08 tablet by ity of tablet 15:48: mouth in [place] [address] the Medical morning Branch and 1 tablet in the evening. rivaroxaban 2023-0 Yes 15mg Take 1 Univ ers 15 mg 5-08 tablet by ity of tablet 15:48: mouth in [place] [address] the Medical morning. Branch ASPIRIN 2023-0 Yes 81mg Take 81 mg Univ ers ORAL 5-08 by mouth ity of 15:48: in the [place] [address] morning. Medical tablet Branch busPIRone 2023-0 Yes 10mg Take 1 [facility] 10 mg 5-08 tablet by ity of tablet 15:48: mouth in [place] [address] the Medical morning Branch and 1 tablet in the evening. rivaroxaban 2023-0 Yes 15mg Take 1 Univ ers 15 mg 5-08 tablet by ity of tablet 15:48: mouth in [place] [address] the Medical morning. Branch ASPIRIN 2023-0 Yes 81mg Take 81 mg Univ ers ORAL 5-08 by mouth ity of 15:48: in the [place] [address] morning. Medical tablet Branch busPIRone 2023-0 Yes 10mg Take 1 [facility] 10 mg 5-08 tablet by ity of tablet 15:48: mouth in [place] [address] the Medical morning Branch and 1 tablet in the evening. rivaroxaban 2023-0 Yes 15mg Take 1 [facility] ers 15 mg 5-08 tablet by ity of tablet 15:48: mouth in [place] [address] the Medical morning. Branch ASPIRIN 2023-0 Yes 81mg Take 81 mg Univ ers ORAL 5-08 by mouth ity of 15:48: in the [place] [address] morning. Medical tablet Branch busPIRone 2023-0 Yes 10mg Take 1 [facility] 10 mg 5-08 tablet by ity of tablet 15:48: mouth in [place] [address] the Medical morning Branch and 1 tablet in the evening. rivaroxaban 2023-0 Yes 15mg Take 1 [facility] ers 15 mg 5-08 tablet by ity of tablet 15:48: mouth in [place] [address] the Medical morning. Branch ASPIRIN 2023-0 Yes 81mg Take 81 mg [facility] ers ORAL 5-08 by mouth ity of 15:48: in the [place] [address] morning. Medical tablet Branch busPIRone 2023-0 Yes 10mg Take 1 [facility] 10 mg 5-08 tablet by ity of tablet 15:48: mouth in [place] [address] the Medical morning Branch and 1 tablet in the evening. rivaroxaban 2023-0 Yes 15mg Take 1 [facility] ers 15 mg 5-08 tablet by ity of tablet 15:48: mouth in [place] [address] the Medical morning. Branch ASPIRIN 2023-0 Yes 81mg Take 81 mg [facility] ers ORAL 5-08 by mouth ity of 15:48: in the [place] [address] morning. Medical tablet Branch busPIRone 2023-0 Yes 10mg Take 1 [facility] 10 mg 5-08 tablet by ity of tablet 15:48: mouth in [place] [address] the Medical morning Branch and 1 tablet in the evening. rivaroxaban 2023-0 Yes 15mg Take 1 [facility] ers 15 mg 5-08 tablet by ity of tablet 15:48: mouth in [place] [address] the Medical morning. Branch ASPIRIN 2023-0 Yes 81mg Take 81 mg [facility] ers ORAL 5-08 by mouth ity of 15:48: in the [place] [address] morning. Medical tablet Branch busPIRone 2023-0 Yes 10mg Take 1 [facility] 10 mg 5-08 tablet by ity of tablet 15:48: mouth in [place] [address] the Medical morning Branch and 1 tablet in the evening. rivaroxaban 2023-0 Yes 15mg Take 1 [facility] 15 mg 5-08 tablet by ity of tablet 15:48: mouth in [place] [address] the Medical morning. Branch ASPIRIN 2023-0 Yes 81mg Take 81 mg [facility] ers ORAL 5-08 by mouth ity of 15:48: in the [place] [address] morning. Medical tablet Branch busPIRone 2023-0 Yes 10mg Take 1 [facility] 10 mg 5-08 tablet by ity of tablet 15:48: mouth in [place] [address] the Medical morning Branch and 1 tablet in the evening. rivaroxaban 2023-0 Yes 15mg Take 1 [facility] ers 15 mg 5-08 tablet by ity of tablet 15:48: mouth in [place] [address] the Medical morning. Branch ASPIRIN 0 Yes 81mg Take 81 mg [facility] ers ORAL 5-08 by mouth ity of 15:48: in the [place] 43 morning. Medical tablet Branch levalbutero 2022- No 1.25mg 1.25 mg, Univers l (XOPENEX) 01-23-06 Inhalation i ty of nebulizer 00:15: 23:35 , ONCE, 1 [place] solution 00 :00 dose, On Medical 1.25 mg 01/22/23 Branch at 1915, Routine ipratropium 2022- No .5mg 0.5 mg, [facility] (ATROVENT) 01-22 05-06 Inhalation it y of 0.02 % 23:30: 23:36 , ONCE, 1 [place] nebulizer 00 :00 dose, On Medica l [...] it y of succ 23:00: s, Q6H, [place] (SOLU-MEDRO 00 First dose Me dical L) [...] mg 01/21/23 Branch at 1445, STAT
[facility] : LOUIS HONG NaCl 0.9% 2022- No 1000mL at 999 Uni vers (NS) bolus 5-05 05-05 mL/hr, ity of infusion 19:45: 22:17 1,000 mL, [place] as 1,000 mL 00 :00 IV Medical Infusion, Branch ONCE, 1 dose, On Tue01/21/23 at 1445, STAT predniSONE 2022- Yes [id number] 40mg Take 2 [facility] 20 mg 5-04 05-09 tablets by ity of tablet 00:00: 04:59 mouth in [place] 00 :00 the Medical morning [place] for 4 days. predniSONE 2022-0 2022- Yes [id number] 40mg Take 2 [facility] 20 mg 5-04 05-09 tablets by ity of tablet 00:00: 04:59 mouth in [place] 00 :00 the [facility] morning [place] for 4 days. predniSONE 2022-0 2022- Yes [id number] 40mg Take 2 [facility] 20 mg 5-04 05-09 tablets by ity of tablet 00:00: 04:59 mouth in [place] 00 :00 the [facility] morning [place] for 4 days. predniSONE 2022-0 2022- Yes [id number] 40mg Take 2 [facility] 20 mg 5-04 05-09 tablets by ity of tablet 00:00: 04:59 mouth in [place] 00 :[address] [facility] for 4 days. predniSONE 2022-0 2022- Yes [id number] 40mg Take 2 [facility] 20 mg 5-04 05-09 tablets by ity of tablet 00:00: 04:59 mouth in [place] 00 :00 the [facility] morning [place] for 4 days. predniSONE 2022-0 2022- Yes [id number] 40mg Take 2 [facility] 20 mg 5-04 05-09 tablets by ity of tablet 00:00: 04:59 mouth in [place] 00 :00 the [facility] morning [place] for 4 days. predniSONE 2022-0 2022- Yes [id number] 40mg Take 2 [facility] 20 mg 5-04 05-09 tablets by ity of tablet 00:00: 04:59 mouth in [place] 00 :00 the [facility] morning [place] for 4 days. enoxaparin Yes 40mg 40 [...] ity of 0.02 % 21:00: , QID, [place] nebulizer 00 First dose Medi lucho solution (after Branch 0.5 mg last modificati on) on Tue01/19/23 at 1600, Until Discontinu ed, Routine busPIRone 3-0 Yes 10mg Take 1 [facility] 10 mg 5-03 tablet by ity of tablet 19:49: mouth in [place] [address] the Medical morning Branch and 1 tablet in the evening. rivaroxaban 2023-0 Yes 15mg Take 1 [facility] ers 15 mg 5-03 tablet by ity of tablet 19:49: mouth in [place] [address] the Medical morning. Branch ASPIRIN 3-0 Yes 81mg Take 81 mg Univ ers ORAL 5-03 by mouth ity of 19:49: in the [place] [address] morning. Medical tablet Branch busPIRone 2023-0 Yes 10mg Take 1 [facility] 10 mg 5-03 tablet by ity of tablet 19:49: mouth in [place] [address] the Medical morning Branch and 1 tablet in the evening. rivaroxaban 2023-0 Yes 15mg Take 1 [facility] ers 15 mg 5-03 tablet by ity of tablet 19:49: mouth in [place] [address] the Medical morning. Branch ASPIRIN 2023-0 Yes 81mg Take 81 mg [facility] ers ORAL 5-03 by mouth ity of 19:49: in the [place] [address] morning. Medical tablet Branch busPIRone 2023-0 Yes 10mg Take 1 [facility] 10 mg 5-03 tablet by ity of tablet 19:49: mouth in [place] [address] the Medical morning Branch and 1 tablet in the evening. rivaroxaban 2023-0 Yes 15mg Take 1 [facility] ers 15 mg 5-03 tablet by ity of tablet 19:49: mouth in [place] [address] the Medical morning. Branch ASPIRIN 3-0 Yes 81mg Take 81 mg [facility] ers ORAL 5-03 by mouth ity of 19:49: in the [place] [address] morning. Medical tablet Branch busPIRone 3-0 Yes 10mg Take 1 [facility] 10 mg 5-03 tablet by ity of tablet 19:49: mouth in [place] [address] the Medical morning Branch and 1 tablet in the evening. rivaroxaban 3-0 Yes 15mg Take 1 [facility] ers 15 mg 5-03 tablet by ity of tablet 19:49: mouth in [place] [address] the Medical morning. Branch ASPIRIN 3-0 Yes 81mg Take 81 mg Univ ers ORAL 5-03 by mouth ity of 19:49: in the [place] [address] morning. Medical tablet Branch busPIRone 3-0 Yes 10mg Take 1 [facility] 10 mg 5-03 tablet by ity of tablet 19:49: mouth in [place] [address] the Medical morning Branch and 1 tablet in the evening. rivaroxaban 3-0 Yes 15mg Take 1 [facility] ers 15 mg 5-03 tablet by ity of tablet 19:49: mouth in [place] [address] the Medical morning. Branch ASPIRIN 3-0 Yes 81mg Take 81 mg Univ ers ORAL 5-03 by mouth ity of 19:49: in the [place] [address] morning. Medical tablet Branch busPIRone 3-0 Yes 10mg Take 1 [facility] 10 mg 5-03 tablet by ity of tablet 19:49: mouth in [place] [address] the Medical morning Branch and 1 tablet in the evening. rivaroxaban 3-0 Yes 15mg Take 1 [facility] ers 15 mg 5-03 tablet by ity of tablet 19:49: mouth in [place] [address] the Medical morning. Branch ASPIRIN 3-0 Yes 81mg Take 81 mg [facility] ers ORAL 5-03 by mouth ity of 19:49: in the [place] [address] morning. Medical tablet Branch benazepriL 2022-0 2022- No 10mg Take 1 [facility] ers 10 mg 5-03 05-03 tablet by ity of tablet 17:28: 00:00 mouth in [place] 05 :00 the Medical morning. Branch potassium [...] of 0.02 % 13:00: 19:13 , TID, [place] nebulizer 00 :37 First dose Medi lucho [...] of 0.02 % 09:00: 12:09 , Q4H, [place] nebulizer 00 :19 First dose Medi lucho [...] IV Push, ity of (PF)) 08:03: Q6HPRN, [place] injection 4 53 Starting Medi lucho mg [...] mg at 0145, MICHAEL ipratropium 3-0 Yes [id number] .5mg Inhale 2.5 Univers 0.02 % 5-03 mL every 6 ity of nebulizer 00:00: (six) [place] solution 00 hours as Medical needed for Branch Wheezing, Shortness of Breath, Bronchospa sm or Chest tightness. guaiFENesin 2023-0 Yes [id number] 200mg Take 10 mL Univers 100 mg/5 mL 03 by mouth ity of solution 00:00: every 6 [place] 00 (six) Medical hours as Branch needed for Cough. ipratropium 2023-0 Yes [id number] .5mg Inhale 2.5 Univers 0.02 % 5-03 mL every 6 ity of nebulizer 00:00: (six) [place] solution 00 hours as Medical needed for Branch Wheezing, Shortness of Breath, Bronchospa sm or Chest tightness. guaiFENesin 2023-0 Yes [id number] 200mg Take 10 mL Univers 100 mg/5 mL 5-03 by mouth ity of solution 00:00: every 6 [place] 00 (six) Medical hours as Branch needed for Cough. ipratropium 2023-0 Yes [id number] .5mg Inhale 2.5 Univers 0.02 % 5-03 mL every 6 ity of nebulizer 00:00: (six) [place] solution 00 hours as Medical needed for Branch Wheezing, Shortness of Breath, Bronchospa sm or Chest tightness. guaiFENesin 2023-0 Yes [id number] 200mg Take 10 mL Univers 100 mg/5 mL 5-03 by mouth ity of solution 00:00: every 6 [place] 00 (six) Medical hours as Branch needed for Cough. ipratropium 2023-0 Yes [id number] .5mg Inhale 2.5 Univers 0.02 % 5-03 mL every 6 ity of nebulizer 00:00: (six) [place] solution 00 hours as Medical needed for Branch Wheezing, Shortness of Breath, Bronchospa sm or Chest tightness. guaiFENesin 2023-0 Yes [id number] 200mg Take 10 mL Univers 100 mg/5 mL 5-03 by mouth ity of solution 00:00: every 6 [place] 00 (six) Medical hours as Branch needed for Cough. ipratropium 2023-0 Yes [id number] .5mg Inhale 2.5 Univers 0.02 % 5-03 mL every 6 ity of nebulizer 00:00: (six) [place] solution 00 hours as Medical needed for Branch Wheezing, Shortness of Breath, Bronchospa sm or Chest tightness. guaiFENesin 2023-0 Yes [id number] 200mg Take 10 mL Univers 100 mg/5 mL 5-03 by mouth ity of solution 00:00: every 6 [place] 00 (six) Medical hours as Branch needed for Cough. ipratropium 2023-0 Yes [id number] .5mg Inhale 2.5 Univers 0.02 % 5-03 mL every 6 ity of nebulizer 00:00: (six) [place] solution 00 hours as Medical needed for Branch Wheezing, Shortness of Breath, Bronchospa sm or Chest tightness. guaiFENesin 2023-0 Yes [id number] 200mg Take 10 mL Univers 100 mg/5 mL 5-03 by mouth ity of solution 00:00: every 6 [place] 00 (six) Medical hours as Branch needed for Cough. ipratropium 2023-0 Yes [id number] .5mg Inhale 2.5 Univers 0.02 % 5-03 mL every 6 ity of nebulizer 00:00: (six) [place] solution 00 hours as Medical needed for Branch Wheezing, Shortness of Breath, Bronchospa sm or Chest tightness. guaiFENesin 2023-0 Yes [id number] 200mg Take 10 mL Univers 100 mg/5 mL 5-03 by mouth ity of solution 00:00: every 6 [place] 00 (six) Medical hours as Branch needed for Cough. ipratropium 2023-0 Yes [id number] .5mg Inhale 2.5 Univers 0.02 % 5-03 mL every 6 ity of nebulizer 00:00: (six) [place] solution 00 hours as Medical needed for Branch Wheezing, Shortness of Breath, Bronchospa sm or Chest tightness. guaiFENesin 2023-0 Yes [id number] 200mg Take 10 mL Univers 100 mg/5 mL 5-03 by mouth ity of solution 00:00: every 6 [place] 00 (six) Medical hours as Branch needed for Cough. ipratropium 2023-0 Yes [id number] .5mg Inhale 2.5 Univers 0.02 % 5-03 mL every 6 ity of nebulizer 00:00: (six) [place] solution 00 hours as Medical needed for Branch Wheezing, Shortness of Breath, Bronchospa sm or Chest tightness. guaiFENesin 2023-0 Yes [id number] 200mg Take 10 mL Univers 100 mg/5 mL 5-03 by mouth ity of solution 00:00: every 6 [place] 00 (six) Medical hours as Branch needed for Cough. ipratropium 2023-0 Yes [id number] .5mg Inhale 2.5 Univers 0.02 % 5-03 mL every 6 ity of nebulizer 00:00: (six) [place] solution 00 hours as Medical needed for Branch Wheezing, Shortness of Breath, Bronchospa sm or Chest tightness. guaiFENesin 2023-0 Yes [id number] 200mg Take 10 mL Univers 100 mg/5 mL 5-03 by mouth ity of solution 00:00: every 6 [place] 00 (six) Medical hours as Branch needed for Cough. ipratropium 2023-0 Yes [id number] .5mg Inhale 2.5 Univers 0.02 % 5-03 mL every 6 ity of nebulizer 00:00: (six) [place] solution 00 hours as Medical needed for Branch Wheezing, Shortness of Breath, Bronchospa sm or Chest tightness. guaiFENesin 2023-0 Yes [id number] 200mg Take 10 mL Univers 100 mg/5 mL 5-03 by mouth ity of solution 00:00: every 6 [place] 00 (six) Medical hours as Branch needed for Cough. ipratropium 2023-0 Yes [id number] .5mg Inhale 2.5 Univers 0.02 % 5-03 mL every 6 ity of nebulizer 00:00: (six) [place] solution 00 hours as Medical needed for Branch Wheezing, Shortness of Breath, Bronchospa sm or Chest tightness. guaiFENesin 2023-0 Yes [id number] 200mg Take 10 mL Univers 100 mg/5 mL 5-03 by mouth ity of solution 00:00: every 6 [place] 00 (six) Medical hours as Branch needed for Cough. ipratropium 2023-0 Yes [id number] .5mg Inhale 2.5 Univers 0.02 % 5-03 mL every 6 ity of nebulizer 00:00: (six) [place] solution 00 hours as Medical needed for Branch Wheezing, Shortness of Breath, Bronchospa sm or Chest tightness. guaiFENesin 2023-0 Yes [id number] 200mg Take 10 mL Univers 100 mg/5 mL 5-03 by mouth ity of solution 00:00: every 6 [place] 00 (six) Medical hours as Branch needed for Cough. ipratropium 2023-0 Yes [id number] .5mg Inhale 2.5 Univers 0.02 % 5-03 mL every 6 ity of nebulizer 00:00: (six) [place] solution 00 hours as Medical needed for Branch Wheezing, Shortness of Breath, Bronchospa sm or Chest tightness. guaiFENesin 2023-0 Yes [id number] 200mg Take 10 mL Univers 100 mg/5 mL 5-03 by mouth ity of solution 00:00: every 6 [place] 00 (six) Medical hours as Branch needed for Cough. ipratropium 2023-0 Yes [id number] .5mg Inhale 2.5 Univers 0.02 % 5-03 mL every 6 ity of nebulizer 00:00: (six) [place] solution 00 hours as Medical needed for Branch Wheezing, Shortness of Breath, Bronchospa sm or Chest tightness. guaiFENesin 2023-0 Yes [id number] 200mg Take 10 mL Univers 100 mg/5 mL 5-03 by mouth ity of solution 00:00: every 6 [place] 00 (six) Medical hours as Branch needed for Cough. ipratropium 2023-0 Yes [id number] .5mg Inhale 2.5 Univers 0.02 % 5-03 mL every 6 ity of nebulizer 00:00: (six) [place] solution 00 hours as Medical needed for Branch Wheezing, Shortness of Breath, Bronchospa sm or Chest tightness. guaiFENesin 2023-0 Yes [id number] 200mg Take 10 mL Univers 100 mg/5 mL 5-03 by mouth ity of solution 00:00: every 6 [place] 00 (six) Medical hours as Branch needed for Cough. ipratropium 2023-0 Yes [id number] .5mg Inhale 2.5 Univers 0.02 % 5-03 mL every 6 ity of nebulizer 00:00: (six) [place] solution 00 hours as Medical needed for Branch Wheezing, Shortness of Breath, Bronchospa sm or Chest tightness. guaiFENesin 2023-0 Yes [id number] 200mg Take 10 mL Univers 100 mg/5 mL 5-03 by mouth ity of solution 00:00: every 6 [place] 00 (six) Medical hours as Branch needed for Cough. ipratropium 2023-0 Yes [id number] .5mg Inhale 2.5 Univers 0.02 % 5-03 mL every 6 ity of nebulizer 00:00: (six) [place] solution 00 hours as Medical needed for Branch Wheezing, Shortness of Breath, Bronchospa sm or Chest tightness. guaiFENesin 2023-0 Yes [id number] 200mg Take 10 mL Univers 100 mg/5 mL 5-03 by mouth ity of solution 00:00: every 6 [place] 00 (six) Medical hours as Branch needed for Cough. ipratropium 2023-0 Yes [id number] .5mg Inhale 2.5 Univers 0.02 % 5-03 mL every 6 ity of nebulizer 00:00: (six) [place] solution 00 hours as Medical needed for Branch Wheezing, Shortness of Breath, Bronchospa sm or Chest tightness. guaiFENesin 2023-0 Yes [id number] 200mg Take 10 mL Univers 100 mg/5 mL 5-03 by mouth ity of solution 00:00: every 6 [place] 00 (six) Medical hours as Branch needed for Cough. guaiFENesin 2023-0 Yes [id number] 200mg Take 10 mL Univers 100 mg/5 mL 5-03 by mouth ity of solution 00:00: every 6 [place] 00 (six) Medical hours as Branch needed for Cough. guaiFENesin 2023-0 Yes [id number] 200mg Take 10 mL Univers 100 mg/5 mL 5-03 by mouth ity of solution 00:00: every 6 [place] 00 (six) Medical hours as Branch needed for Cough. guaiFENesin 2023-0 Yes [id number] 200mg Take 10 mL Univers 100 mg/5 mL 5-03 by mouth ity of solution 00:00: every 6 [place] 00 (six) Medical hours as Branch needed for Cough. guaiFENesin 2023-0 Yes [id number] 200mg Take 10 mL Univers 100 mg/5 mL 5-03 by mouth ity of solution 00:00: every 6 [place] 00 (six) Medical hours as Branch needed for Cough. guaiFENesin 2023-0 Yes [id number] 200mg Take 10 mL Univers 100 mg/5 mL 5-03 by mouth ity of solution 00:00: every 6 [place] 00 (six) Medical hours as Branch needed for Cough. guaiFENesin 2023-0 Yes [id number] 200mg Take 10 mL Univers 100 mg/5 mL 5-03 by mouth ity of solution 00:00: every 6 [place] 00 (six) Medical hours as Branch needed for Cough. guaiFENesin 2023-0 Yes [id number] 200mg Take 10 mL Univers 100 mg/5 mL 5-03 by mouth ity of solution 00:00: every 6 [place] 00 (six) Medical hours as Branch needed for Cough. ipratropium 2022- No [id number] .5mg Inhale 2.5 Univers 0.02 % 01-19 mL every 6 ity of nebulizer 00:00: 00:00 (six) [place] solution 00 :00 hours as Medical needed for Branch Wheezing, Shortness of Breath, Bronchospa sm or Chest tightness. levoFLOXaci 2022- Yes [id number] 500mg Take 1 Univers n 500 mg 01-19-08 tablet by ity o f tablet 00:00: 04:59 mouth in [place] 00 :[address] [facility] for 4 days. levoFLOXaci 2022- Yes [id number] 500mg Take 1 Univers n 500 mg 01-19-08 tablet by ity o f tablet 00:00: 04:59 mouth in [place] 00 :[address] [facility] for 4 days. levoFLOXaci 2022- Yes [id number] 500mg Take 1 Univers n 500 mg 01-19-08 tablet by ity o f tablet 00:00: 04:59 mouth in [place] 00 :[address] [facility] for 4 days. levoFLOXaci 2022- Yes [id number] 500mg Take 1 Univers n 500 mg 01-19-08 tablet by ity o f tablet 00:00: 04:59 mouth in [place] 00 :[address] [facility] for 4 days. levoFLOXaci 2022- Yes [id number] 500mg Take 1 Univers n 500 mg 01-19-08 tablet by ity o f tablet 00:00: 04:59 mouth in [place] 00 :[address] [facility] for 4 days. levoFLOXaci 2022- Yes [id number] 500mg Take 1 Univers n 500 mg - 05-08 tablet by ity o f tablet 00:00: 04:59 mouth in [place] 00 :[address] [facility] for 4 days. levalbutero 2022-2022- No [...] of succ 12:00: 11:11 s, ONCE, 1 [place] (SOLU-MEDRO 00 :00 dose, On Medi lucho L) 01/17/23 Branch injection at 0700, 2 125 mg mL ipratropium 2022-0 2022- No .5mg 0.5 mg, Un igor (ATROVENT) 01-17 Inhalation it y of 0.02 % 11:45: 11:42 , ONCE, 1 [place] nebulizer 00 :00 dose, On Medica l solution Tue01/17/23 Branc h 0.5 mg at 0645, MICHAEL albuterol 2022-0 Yes [id number] 2{puff} Inhale 2 Univers 90 5-01 Puffs ity of mcg/actuati 00:00: every 4 [place] as on inhaler 00 (four) Medical hours as Branch needed for Wheezing or Shortness of Breath. albuterol 2022-0 Yes [id number] 2.5mg Inhale 3 Univers 2.5 mg /3 5-01 mL every 4 ity of mL (0.083 00:00: (four) [place] %) 00 hours. May Medical nebulizer also Branch solution nebulize one extra every 6 hours. predniSONE 2022-0 Yes [id number] 50mg Take 1 Univers 50 mg 5-01 tablet by ity of tablet 00:00: mouth in [place] 00 the Medical morning. Branch benzonatate 2022-0 Yes [id number] 200mg Take 1 [facility] 200 mg 5-01 capsule by ity of capsule 00:00: mouth 3 [place] 00 (three) Medical times Branch daily as needed for Cough. ipratropium 3-0 Yes [id number] .5mg Inhale 2.5 Univers 0.02 % 5-01 mL every 6 ity of nebulizer 00:00: (six) [place] solution 00 hours as Medical needed for Branch Wheezing, Shortness of Breath, Bronchospa sm or Chest tightness. albuterol 2022-0 Yes [id number] 2{puff} Inhale 2 Univers 90 5-01 Puffs ity of mcg/actuati 00:00: every 4 [place] on inhaler 00 (four) Medical hours as Branch needed for Wheezing or Shortness of Breath. albuterol 3-0 Yes [id number] 2.5mg Inhale 3 Univers 2.5 mg /3 5-01 mL every 4 ity of mL (0.083 00:00: (four) [place] %) 00 hours. May Medical nebulizer also Branch solution nebulize one extra every 6 hours. benzonatate 3-0 Yes [id number] 200mg Take 1 [facility] 200 mg 5-01 capsule by ity of capsule 00:00: mouth 3 (three) Medical times Branch daily as needed for Cough. albuterol 3-0 Yes [id number] 2{puff} Inhale 2 Univers 90 5-01 Puffs ity of mcg/actuati 00:00: every 4 [place] as on inhaler 00 (four) Medical hours as Branch needed for Wheezing or Shortness of Breath. albuterol 3-0 Yes [id number] 2.5mg Inhale 3 Univers 2.5 mg /3 5-01 mL every 4 ity of mL (0.083 00:00: (four) [place] %) 00 hours. May Medical nebulizer also Branch solution nebulize one extra every 6 hours. benzonatate 3-0 Yes [id number] 200mg Take 1 [facility] 200 mg 5-01 capsule by ity of capsule 00:00: mouth 3 (three) Medical times Branch daily as needed for Cough. albuterol 3-0 Yes [id number] 2{puff} Inhale 2 Univers 90 5-01 Puffs ity of mcg/actuati 00:00: every 4 [place] on inhaler 00 (four) Medical hours as Branch needed for Wheezing or Shortness of Breath. albuterol 2023-0 Yes [id number] 2.5mg Inhale 3 Univers 2.5 mg /3 5-01 mL every 4 ity of mL (0.083 00:00: (four) [place] %) 00 hours. May Medical nebulizer also Branch solution nebulize one extra every 6 hours. benzonatate 2023-0 Yes [id number] 200mg Take 1 Univers 200 mg 5-01 capsule by ity of capsule 00:00: mouth 3 (three) Medical times Branch daily as needed for Cough. albuterol 2023-0 Yes [id number] 2{puff} Inhale 2 Univers 90 5-01 Puffs ity of mcg/actuati 00:00: every 4 [place] on inhaler 00 (four) Medical hours as Branch needed for Wheezing or Shortness of Breath. albuterol 2022-0 Yes [id number] 2.5mg Inhale 3 Univers 2.5 mg /3 5-01 mL every 4 ity of mL (0.083 00:00: (four) [place] %) 00 hours. May Medical nebulizer also Branch solution nebulize one extra every 6 hours. benzonatate 2022-0 Yes [id number] 200mg Take 1 Univers 200 mg 5-01 capsule by ity of capsule 00:00: mouth 3 [place] 00 (three) Medical times Branch daily as needed for Cough. albuterol 2022-0 Yes [id number] 2{puff} Inhale 2 Univers 90 5-01 Puffs ity of mcg/actuati 00:00: every 4 [place] on inhaler 00 (four) Medical hours as Branch needed for Wheezing or Shortness of Breath. albuterol 2022-0 Yes [id number] 2.5mg Inhale 3 Univers 2.5 mg /3 5-01 mL every 4 ity of mL (0.083 00:00: (four) [place] %) 00 hours. May Medical nebulizer also Branch solution nebulize one extra every 6 hours. benzonatate 2022-0 Yes [id number] 200mg Take 1 Univers 200 mg 5-01 capsule by ity of capsule 00:00: mouth 3 [place] 00 (three) Medical times Branch daily as needed for Cough. albuterol 2022-0 Yes [id number] 2{puff} Inhale 2 [facility] 90 5-01 Puffs ity of mcg/actuati 00:00: every 4 [place] on inhaler 00 (four) Medical hours as Branch needed for Wheezing or Shortness of Breath. albuterol 2022-0 Yes [id number] 2.5mg Inhale 3 [facility] 2.5 mg /3 5-01 mL every 4 ity of mL (0.083 00:00: (four) [place] %) 00 hours. May Medical nebulizer also Branch solution nebulize one extra every 6 hours. benzonatate 2022-0 Yes [id number] 200mg Take 1 [facility] 200 mg 5-01 capsule by ity of capsule 00:00: mouth 3 (three) Medical times Branch daily as needed for Cough. albuterol 2022-0 Yes [id number] 2{puff} Inhale 2 [facility] 90 5-01 Puffs ity of mcg/actuati 00:00: every 4 [place] on inhaler 00 (four) Medical hours as Branch needed for Wheezing or Shortness of Breath. albuterol 2022-0 Yes [id number] 2.5mg Inhale 3 [facility] 2.5 mg /3 5-01 mL every 4 ity of mL (0.083 00:00: (four) [place] %) 00 hours. May Medical nebulizer also Branch solution nebulize one extra every 6 hours. benzonatate 2022-0 Yes [id number] 200mg Take 1 [facility] 200 mg 5-01 capsule by ity of capsule 00:00: mouth 3 (three) Medical times Branch daily as needed for Cough. albuterol 2022-0 Yes [id number] 2{puff} Inhale 2 [facility] 90 5-01 Puffs ity of mcg/actuati 00:00: every 4 [place] on inhaler 00 (four) Medical hours as Branch needed for Wheezing or Shortness of Breath. albuterol 2022-0 Yes [id number] 2.5mg Inhale 3 [facility] 2.5 mg /3 5-01 mL every 4 ity of mL (0.083 00:00: (four) [place] %) 00 hours. May Medical nebulizer also Branch solution nebulize one extra every 6 hours. benzonatate 2022-0 Yes [id number] 200mg Take 1 [facility] 200 mg 5-01 capsule by ity of capsule 00:00: mouth 3 (three) Medical times Branch daily as needed for Cough. albuterol 2022-0 Yes [id number] 2{puff} Inhale 2 [facility] 90 5-01 Puffs ity of mcg/actuati 00:00: every 4 [place] on inhaler 00 (four) Medical hours as Branch needed for Wheezing or Shortness of Breath. albuterol 3-0 Yes [id number] 2.5mg Inhale 3 [facility] 2.5 mg /3 5-01 mL every 4 ity of mL (0.083 00:00: (four) [place] %) 00 hours. May Medical nebulizer also Branch solution nebulize one extra every 6 hours. benzonatate 2022-0 Yes [id number] 200mg Take 1 [facility] 200 mg 5-01 capsule by ity of capsule 00:00: mouth 3 [place] 00 (three) Medical times Branch daily as needed for Cough. albuterol 2022-0 Yes [id number] 2{puff} Inhale 2 [facility] 90 5-01 Puffs ity of mcg/actuati 00:00: every 4 [place] on inhaler 00 (four) Medical hours as Branch needed for Wheezing or Shortness of Breath. albuterol 2022-0 Yes [id number] 2.5mg Inhale 3 [facility] 2.5 mg /3 5-01 mL every 4 ity of mL (0.083 00:00: (four) [place] %) 00 hours. May Medical nebulizer also Branch solution nebulize one extra every 6 hours. benzonatate 2022-0 Yes [id number] 200mg Take 1 [facility] 200 mg 5-01 capsule by ity of capsule 00:00: mouth 3 (three) Medical times Branch daily as needed for Cough. albuterol 2022-0 Yes [id number] 2{puff} Inhale 2 [facility] 90 5-01 Puffs ity of mcg/actuati 00:00: every 4 [place] on inhaler 00 (four) Medical hours as Branch needed for Wheezing or Shortness of Breath. albuterol 2022-0 Yes [id number] 2.5mg Inhale 3 [facility] 2.5 mg /3 5-01 mL every 4 ity of mL (0.083 00:00: (four) [place] %) 00 hours. May Medical nebulizer also Branch solution nebulize one extra every 6 hours. benzonatate 3-0 Yes [id number] 200mg Take 1 [facility] 200 mg 5-01 capsule by ity of capsule 00:00: mouth 3 (three) Medical times Branch daily as needed for Cough. albuterol 2022-0 Yes [id number] 2{puff} Inhale 2 [facility] 90 5-01 Puffs ity of mcg/actuati 00:00: every 4 [place] on inhaler 00 (four) Medical hours as Branch needed for Wheezing or Shortness of Breath. albuterol 2023-0 Yes [id number] 2.5mg Inhale 3 [facility] 2.5 mg /3 5-01 mL every 4 ity of mL (0.083 00:00: (four) [place] %) 00 hours. May Medical nebulizer also Branch solution nebulize one extra every 6 hours. benzonatate 2022-0 Yes [id number] 200mg Take 1 [facility] 200 mg 5-01 capsule by ity of capsule 00:00: mouth 3 [place] 00 (three) Medical times Branch daily as needed for Cough. albuterol 2022-0 Yes [id number] 2{puff} Inhale 2 [facility] 90 5-01 Puffs ity of mcg/actuati 00:00: every 4 [place] on inhaler 00 (four) Medical hours as Branch needed for Wheezing or Shortness of Breath. albuterol 2022-0 Yes [id number] 2.5mg Inhale 3 [facility] 2.5 mg /3 5-01 mL every 4 ity of mL (0.083 00:00: (four) [place] %) 00 hours. May Medical nebulizer also Branch solution nebulize one extra every 6 hours. benzonatate 2022-0 Yes [id number] 200mg Take 1 [facility] 200 mg 5-01 capsule by ity of capsule 00:00: mouth 3 (three) Medical times Branch daily as needed for Cough. albuterol 2022-0 Yes [id number] 2{puff} Inhale 2 [facility] 90 5-01 Puffs ity of mcg/actuati 00:00: every 4 [place] on inhaler 00 (four) Medical hours as Branch needed for Wheezing or Shortness of Breath. albuterol 2022-0 Yes [id number] 2.5mg Inhale 3 [facility] 2.5 mg /3 5-01 mL every 4 ity of mL (0.083 00:00: (four) [place] %) 00 hours. May Medical nebulizer also Branch solution nebulize one extra every 6 hours. benzonatate 2022-0 Yes [id number] 200mg Take 1 [facility] 200 mg 5-01 capsule by ity of capsule 00:00: mouth 3 [place] 00 (three) Medical times Branch daily as needed for Cough. albuterol 2022-0 Yes [id number] 2{puff} Inhale 2 [facility] 90 5-01 Puffs ity of mcg/actuati 00:00: every 4 [place] on inhaler 00 (four) Medical hours as Branch needed for Wheezing or Shortness of Breath. albuterol 3-0 Yes [id number] 2.5mg Inhale 3 [facility] 2.5 mg /3 5-01 mL every 4 ity of mL (0.083 00:00: (four) [place] %) 00 hours. May Medical nebulizer also Branch solution nebulize one extra every 6 hours. benzonatate 3-0 Yes [id number] 200mg Take 1 [facility] 200 mg 5-01 capsule by ity of capsule 00:00: mouth 3 (three) Medical times Branch daily as needed for Cough. albuterol 2022-0 Yes [id number] 2{puff} Inhale 2 [facility] 90 5-01 Puffs ity of mcg/actuati 00:00: every 4 [place] on inhaler 00 (four) Medical hours as Branch needed for Wheezing or Shortness of Breath. albuterol 2022-0 Yes [id number] 2.5mg Inhale 3 [facility] 2.5 mg /3 5-01 mL every 4 ity of mL (0.083 00:00: (four) [place] %) 00 hours. May Medical nebulizer also Branch solution nebulize one extra every 6 hours. benzonatate 2022-0 Yes [id number] 200mg Take 1 [facility] 200 mg 5-01 capsule by ity of capsule 00:00: mouth 3 (three) Medical times Branch daily as needed for Cough. albuterol 3-0 Yes [id number] 2.5mg Inhale 3 [facility] 2.5 mg /3 5-01 mL every 4 ity of mL (0.083 00:00: (four) [place] %) 00 hours. May Medical nebulizer also Branch solution nebulize one extra every 6 hours. benzonatate 3-0 Yes [id number] 200mg Take 1 [facility] 200 mg 5-01 capsule by ity of capsule 00:00: mouth 3 (three) Medical times Branch daily as needed for Cough. albuterol 3-0 Yes [id number] 2.5mg Inhale 3 [facility] 2.5 mg /3 5-01 mL every 4 ity of mL (0.083 00:00: (four) [place] %) 00 hours. May Medical nebulizer also Branch solution nebulize one extra every 6 hours. benzonatate 2023-0 Yes [id number] 200mg Take 1 [facility] 200 mg 5-01 capsule by ity of capsule 00:00: mouth 3 (three) Medical times Branch daily as needed for Cough. albuterol 2023-0 Yes [id number] 2.5mg Inhale 3 [facility] 2.5 mg /3 5-01 mL every 4 ity of mL (0.083 00:00: (four) [place] %) 00 hours. May Medical nebulizer also Branch solution nebulize one extra every 6 hours. benzonatate 3-0 Yes [id number] 200mg Take 1 [facility] 200 mg 5-01 capsule by ity of capsule 00:00: mouth 3 (three) Medical times Branch daily as needed for Cough. albuterol 3-0 Yes [id number] 2.5mg Inhale 3 [facility] 2.5 mg /3 5-01 mL every 4 ity of mL (0.083 00:00: (four) [place] %) 00 hours. May Medical nebulizer also Branch solution nebulize one extra every 6 hours. albuterol 3-0 Yes [id number] 2.5mg Inhale 3 [facility] 2.5 mg /3 5-01 mL every 4 ity of mL (0.083 00:00: (four) [place] %) 00 hours. May Medical nebulizer also Branch solution nebulize one extra every 6 hours. albuterol 2023-0 Yes [id number] 2.5mg Inhale 3 [facility] 2.5 mg /3 5-01 mL every 4 ity of mL (0.083 00:00: (four) [place] %) 00 hours. May Medical nebulizer also Branch solution nebulize one extra every 6 hours. albuterol 2023-0 Yes [id number] 2.5mg Inhale 3 [facility] 2.5 mg /3 5-01 mL every 4 ity of mL (0.083 00:00: (four) [place] %) 00 hours. May Medical nebulizer also Branch solution nebulize one extra every 6 hours. albuterol 2023-0 Yes [id number] 2.5mg Inhale 3 [facility] 2.5 mg /3 5-01 mL every 4 ity of mL (0.083 00:00: (four) [place] %) 00 hours. May Medical nebulizer also Branch solution nebulize one extra every 6 hours. albuterol 2022- Yes [id number] 2.5mg Inhale 3 [facility] 2.5 mg /3 5-01 mL every 4 ity of mL (0.083 00:00: (four) [place] %) 00 hours. May Medical nebulizer also Branch solution nebulize one extra every 6 hours. albuterol 2022- No [id number] 2.5mg Inhale 3 [facility] 2.5 mg /3 5-01 06-15 mL every 4 ity of mL (0.083 00:00: 00:00 (four) [place] %) 00 :00 hours. May Medical nebulizer also Branch solution nebulize one extra every 6 hours. benzonatate 2022- No [id number] 200mg Take 1 [facility] 200 mg 01-17- capsule by ity of capsule 00:00: 00:00 mouth 3 [place] 00 :00 (three) Medical times Branch daily as needed for Cough. albuterol 2022- No [id number] 2{puff} Inhale 2 [facility] 90 - 05-19 Puffs ity of mcg/actuati 00:00: 00:00 every 4 [place] on inhaler 00 :00 (four) Medical hours as Branch needed for Wheezing or Shortness of Breath. predniSONE 2022- No [id number] 50mg Take 1 [facility] 50 mg 01-17 05-03 tablet by ity of tablet 00:00: 00:00 mouth in [place] 00 :00 the Medical morning. Branch ipratropium 2022- No [id number] .5mg Inhale 2.5 [facility] 0.02 % 01-17 [...] by ity of tablet 14:36: mouth in [place] 57 the Medical morning Branch and 1 tablet in the evening. rivaroxaban 2023-0 Yes 15mg Take 1 [facility] ers 15 mg 4-21 tablet by ity of tablet 14:36: mouth in [place] [address] the Medical morning. Branch ASPIRIN 2023-0 Yes 81mg Take 81 mg [facility] ers ORAL 4-21 by mouth ity of 14:36: in the [place] [address] morning. Medical tablet Branch benazepriL 2023-0 Yes 10mg Take 1 [facility] rs 10 mg 4-21 tablet by ity of tablet 14:36: mouth in [place] [address] the Medical morning. Branch busPIRone 2023-0 Yes 10mg Take 1 [facility] 10 mg 4-21 tablet by ity of tablet 14:36: mouth in [place] [address] the Medical morning Branch and 1 tablet in the evening. rivaroxaban 2023-0 Yes 15mg Take 1 [facility] ers 15 mg 4-21 tablet by ity of tablet 14:36: mouth in [place] [address] the Medical morning. Branch ASPIRIN 2023-0 Yes 81mg Take 81 mg [facility] ers ORAL 4-21 by mouth ity of 14:36: in the [place] [address] morning. Medical tablet Branch benazepriL 2023-0 Yes 10mg Take 1 [facility] rs 10 mg 4-21 tablet by ity of tablet 14:36: mouth in [place] [address] the Medical morning. Branch busPIRone 2023-0 Yes 10mg Take 1 [facility] 10 mg 4-21 tablet by ity of tablet 14:36: mouth in [place] [address] the Medical morning Branch and 1 tablet in the evening. rivaroxaban 2023-0 Yes 15mg Take 1 [facility] ers 15 mg 4-21 tablet by ity of tablet 14:36: mouth in [place] [address] the Medical morning. Branch ASPIRIN 2023-0 Yes 81mg Take 81 mg [facility] ers ORAL 4-21 by mouth ity of 14:36: in the [place] [address] morning. Medical tablet Branch benazepriL 2023-0 Yes 10mg Take 1 [facility] rs 10 mg 4-21 tablet by ity of tablet 14:36: mouth in [place] [address] the Medical morning. Branch busPIRone 2023-0 Yes 10mg Take 1 [facility] 10 mg 4-21 tablet by ity of tablet 14:36: mouth in [place] [address] the Medical morning Branch and 1 tablet in the evening. rivaroxaban 2023-0 Yes 15mg Take 1 [facility] ers 15 mg 4-21 tablet by ity of tablet 14:36: mouth in [place] [address] the Medical morning. Branch ASPIRIN 2023-0 Yes 81mg Take 81 mg [facility] ers ORAL 4-21 by mouth ity of 14:36: in the [place] [address] morning. Medical tablet Branch benazepriL 2023-0 Yes 10mg Take 1 [facility] rs 10 mg 4-21 tablet by ity of tablet 14:36: mouth in [place] [address] the Medical morning. Branch donepeziL 5 3-0 Yes 5mg Take 1 [facility] ers mg tablet 4-21 tablet by ity o f 00:00: mouth in [place] 00 the Medical morning. Branch memantine 5 2023-0 Yes 5mg Take 1 [facility] ers mg tablet 4-21 tablet by ity o f 00:00: mouth in [place] 00 the Medical morning. Branch donepeziL 5 2023-0 Yes 5mg Take 1 [facility] ers mg tablet 4-21 tablet by ity o f 00:00: mouth in [place] 00 the Medical morning. Branch memantine 5 2023-0 Yes 5mg Take 1 [facility] ers mg tablet 4-21 tablet by ity o f 00:00: mouth in [place] 00 the Medical morning. Branch donepeziL 5 2023-0 Yes 5mg Take 1 [facility] ers mg tablet 4-21 tablet by ity o f 00:00: mouth in [place] 00 the Medical morning. Branch memantine 5 2023-0 Yes 5mg Take 1 [facility] ers mg tablet 4-21 tablet by ity o f 00:00: mouth in [place] 00 the Medical morning. Branch donepeziL 5 2023-0 Yes 5mg Take 1 [facility] ers mg tablet 4-21 tablet by ity o f 00:00: mouth in [place] 00 the Medical morning. Branch memantine 5 2023-0 Yes 5mg Take 1 [facility] ers mg tablet 4-21 tablet by ity o f 00:00: mouth in [place] 00 the Medical morning. Branch donepeziL 5 2023-0 Yes 5mg Take 1 [facility] ers mg tablet 4-21 tablet by ity o f 00:00: mouth in [place] 00 the Medical morning. Branch memantine 5 2023-0 Yes 5mg Take 1 [facility] ers mg tablet 4-21 tablet by ity o f 00:00: mouth in [place] the Medical morning. Branch donepeziL 5 2023-0 Yes 5mg Take 1 [facility] ers mg tablet 4-21 tablet by ity o f 00:00: mouth in [place] the Medical morning. Branch memantine 5 2023-0 Yes 5mg Take 1 [facility] ers mg tablet 4-21 tablet by ity o f 00:00: mouth in [place] the Medical morning. Branch donepeziL 5 2023-0 Yes 5mg Take 1 [facility] ers mg tablet 4-21 tablet by ity o f 00:00: mouth in [place] the Medical morning. Branch memantine 5 2023-0 Yes 5mg Take 1 [facility] ers mg tablet 4-21 tablet by ity o f 00:00: mouth in [place] the Medical morning. Branch donepeziL 5 2023-0 Yes 5mg Take 1 [facility] ers mg tablet 4-21 tablet by ity o f 00:00: mouth in [place] the Medical morning. Branch memantine 5 2023-0 Yes 5mg Take 1 [facility] ers mg tablet 4-21 tablet by ity o f 00:00: mouth in [place] 00 the Medical morning. Branch donepeziL 5 2023-0 Yes 5mg Take 1 [facility] ers mg tablet 4-21 tablet by ity o f 00:00: mouth in [place] 00 the Medical morning. Branch memantine 5 2023-0 Yes 5mg Take 1 [facility] ers mg tablet 4-21 tablet by ity o f 00:00: mouth in [place] 00 the Medical morning. Branch donepeziL 5 2023-0 Yes 5mg Take 1 [facility] ers mg tablet 4-21 tablet by ity o f 00:00: mouth in [place] 00 the Medical morning. Branch memantine 5 2023-0 Yes 5mg Take 1 [facility] ers mg tablet 4-21 tablet by ity o f 00:00: mouth in [place] 00 the Medical morning. Branch donepeziL 5 2023-0 Yes 5mg Take 1 [facility] ers mg tablet 4-21 tablet by ity o f 00:00: mouth in [place] 00 the Medical morning. Branch memantine 5 2023-0 Yes 5mg Take 1 [facility] ers mg tablet 4-21 tablet by ity o f 00:00: mouth in [place] 00 the Medical morning. Branch donepeziL 5 2023-0 Yes 5mg Take 1 [facility] ers mg tablet 4-21 tablet by ity o f 00:00: mouth in [place] 00 the Medical morning. Branch memantine 5 2023-0 Yes 5mg Take 1 [facility] ers mg tablet 4-21 tablet by ity o f 00:00: mouth in [place] the Medical morning. Branch donepeziL 5 2023-0 Yes 5mg Take 1 [facility] ers mg tablet 4-21 tablet by ity o f 00:00: mouth in [place] the Medical morning. Branch memantine 5 2023-0 Yes 5mg Take 1 [facility] ers mg tablet 4-21 tablet by ity o f 00:00: mouth in [place] the Medical morning. Branch donepeziL 5 2023-0 Yes 5mg Take 1 [facility] ers mg tablet 4-21 tablet by ity o f 00:00: mouth in [place] the Medical morning. Branch memantine 5 2023-0 Yes 5mg Take 1 [facility] ers mg tablet 4-21 tablet by ity o f 00:00: mouth in [place] the Medical morning. Branch donepeziL 5 2023-0 Yes 5mg Take 1 [facility] ers mg tablet 4-21 tablet by ity o f 00:00: mouth in [place] 00 the Medical morning. Branch memantine 5 2023-0 Yes 5mg Take 1 [facility] ers mg tablet 4-21 tablet by ity o f 00:00: mouth in [place] 00 the Medical morning. Branch donepeziL 5 2023-0 Yes 5mg Take 1 [facility] ers mg tablet 4-21 tablet by ity o f 00:00: mouth in [place] 00 the Medical morning. Branch memantine 5 2023-0 Yes 5mg Take 1 [facility] ers mg tablet 4-21 tablet by ity o f 00:00: mouth in [place] 00 the Medical morning. Branch donepeziL 5 2023-0 Yes 5mg Take 1 [facility] ers mg tablet 4-21 tablet by ity o f 00:00: mouth in [place] 00 the Medical morning. Branch memantine 5 2023-0 Yes 5mg Take 1 [facility] ers mg tablet 4-21 tablet by ity o f 00:00: mouth in [place] 00 the Medical morning. Branch donepeziL 5 2023-0 Yes 5mg Take 1 [facility] ers mg tablet 4-21 tablet by ity o f 00:00: mouth in [place] the Medical morning. Branch memantine 5 2023-0 Yes 5mg Take 1 [facility] ers mg tablet 4-21 tablet by ity o f 00:00: mouth in [place] the Medical morning. Branch donepeziL 5 2023-0 Yes 5mg Take 1 [facility] ers mg tablet 4-21 tablet by ity o f 00:00: mouth in [place] the Medical morning. Branch memantine 5 2023-0 Yes 5mg Take 1 [facility] ers mg tablet 4-21 tablet by ity o f 00:00: mouth in [place] the Medical morning. Branch donepeziL 5 2023-0 Yes 5mg Take 1 [facility] ers mg tablet 4-21 tablet by ity o f 00:00: mouth in [place] the Medical morning. Branch memantine 5 2023-0 Yes 5mg Take 1 [facility] ers mg tablet 4-21 tablet by ity o f 00:00: mouth in [place] the Medical morning. Branch donepeziL 5 2023-0 Yes 5mg Take 1 [facility] ers mg tablet 4-21 tablet by ity o f 00:00: mouth in [place] the Medical morning. Branch memantine 5 2023-0 Yes 5mg Take 1 [facility] ers mg tablet 4-21 tablet by ity o f 00:00: mouth in [place] the Medical morning. Branch donepeziL 5 2023-0 Yes 5mg Take 1 [facility] ers mg tablet 4-21 tablet by ity o f 00:00: mouth in [place] 00 the Medical morning. Branch memantine 5 2023-0 Yes 5mg Take 1 [facility] ers mg tablet 4-21 tablet by ity o f 00:00: mouth in [place] 00 the Medical morning. Branch donepeziL 5 2023-0 Yes 5mg Take 1 [facility] ers mg tablet 4-21 tablet by ity o f 00:00: mouth in [place] 00 the Medical morning. Branch memantine 5 2023-0 Yes 5mg Take 1 [facility] ers mg tablet 4-21 tablet by ity o f 00:00: mouth in [place] 00 the Medical morning. Branch donepeziL 5 2023-0 Yes 5mg Take 1 [facility] ers mg tablet 4-21 tablet by ity o f 00:00: mouth in [place] 00 the Medical morning. Branch memantine 5 2023-0 Yes 5mg Take 1 [facility] ers mg tablet 4-21 tablet by ity o f 00:00: mouth in [place] 00 the Medical morning. Branch donepeziL 5 2023-0 Yes 5mg Take 1 [facility] ers mg tablet 4-21 tablet by ity o f 00:00: mouth in [place] 00 the Medical morning. Branch memantine 5 2023-0 Yes 5mg Take 1 [facility] ers mg tablet 4-21 tablet by ity o f 00:00: mouth in [place] 00 the Medical morning. Branch donepeziL 5 2023-0 Yes 5mg Take 1 [facility] ers mg tablet 4-21 tablet by ity o f 00:00: mouth in [place] 00 the Medical morning. Branch memantine 5 2023-0 Yes 5mg Take 1 [facility] ers mg tablet 4-21 tablet by ity o f 00:00: mouth in [place] 00 the Medical morning. Branch donepeziL 5 2023-0 Yes 5mg Take 1 [facility] ers mg tablet 4-21 tablet by ity o f 00:00: mouth in [place] 00 the Medical morning. Branch memantine 5 2023-0 Yes 5mg Take 1 [facility] ers mg tablet 4-21 tablet by ity o f 00:00: mouth in [place] 00 the Medical morning. Branch donepeziL 5 2023-0 2023- No 5mg Take 1 [facility] vers mg tablet 01-07- tablet by ity of 00:00: 00:00 mouth in [place] 00 :00 the Medical morning. Branch memantine 5 2023-0 2023- No 5mg Take 1 [facility] vers mg tablet 01-07- tablet by ity of 00:00: 00:00 mouth in [place] 00 :00 the Medical morning. Branch donepeziL 5 2023-0 2023- No 5mg Take 1 [facility] vers mg tablet 4-09 03- tablet by ity of 00:00: 00:00 mouth in [place] 00 :00 the Medical morning. Branch memantine 5 2022-0 3- No 5mg Take 1 [facility] vers mg tablet 01-07 tablet by ity of 00:00: 00:00 mouth in [place] 00 :00 the Medical morning. Branch tamsulosin 2023-0 2023- No [id number] .4mg Take 1 [facility] 0.4 mg 24 3-27 -27 capsule by ity of hr capsule 00:00: 04:59 mouth in [place] 00 :00 the Medical morning Branch for 30 days. tamsulosin 2023-0 2023- No [id number] .4mg Take 1 [facility] 0.4 mg 24 3-13 01- capsule by ity of hr capsule 00:00: 04:59 mouth in [place] 00 :00 the Medical morning Branch for 30 days. tamsulosin 2023-0 2023- No [id number] .4mg Take 1 [facility] 0.4 mg 24 3-13 01- capsule by ity of hr capsule 00:00: 04:59 mouth in [place] 00 :00 the Medical morning Branch for 30 days. tamsulosin 2023-0 2023- No [id number] .4mg Take 1 [facility] 0.4 mg 24 3-13 01- capsule by ity of hr capsule 00:00: 04:59 mouth in [place] 00 :00 the Medical morning Branch for 30 days. tamsulosin 2023-0 2023- No [id number] .4mg Take 1 [facility] 0.4 mg 24 3-13 01- capsule by ity of hr capsule 00:00: 04:59 mouth in [place] 00 :00 the Medical morning Branch for 30 days. tamsulosin 2023-0 2023- No [id number] .4mg Take 1 [facility] 0.4 mg 24 [...] 12/12/22 at 1230, Until Discontinu ed, Routine
family member caretaker approving Restricted medication : TRAVIS ZENG busPIRone 3-0 Yes 10mg Take 1 [facility] s 10 mg 3-26 tablet by ity of tablet 14:37: mouth in [place] [address] the Medical morning Branch and 1 tablet in the evening. rivaroxaban 2023-0 Yes 15mg Take 1 Univ ers (XARELTO) 3-26 tablet by ity o f 15 mg 14:37: mouth in [place] tablet 13 the Medical morning. Branch aspirin 81 3-0 Yes 81mg Take 81 mg U nivers mg chewable 3-26 by mouth ity of tablet 14:37: in the [place] [address] morning. Medical tablet Branch busPIRone 3-0 Yes 10mg Take 1 [facility] s 10 mg 3-26 tablet by ity of tablet 14:37: mouth in [place] [address] the Medical morning Branch and 1 tablet in the evening. rivaroxaban 2023-0 Yes 15mg Take 1 [facility] ers (XARELTO) 3-26 tablet by ity o f 15 mg 14:37: mouth in [place] tablet 13 the Medical morning. Branch busPIRone 3-0 Yes 10mg Take 1 [facility] s 10 mg 3-26 tablet by ity of tablet 14:37: mouth in [place] [address] the Medical morning Branch and 1 tablet in the evening. rivaroxaban 2023-0 Yes 15mg Take 1 [facility] ers (XARELTO) 3-26 tablet by ity o f 15 mg 14:37: mouth in [place] tablet 13 the Medical morning. Branch aspirin 81 3-0 Yes 81mg Take 81 mg U nivers mg chewable 3-26 by mouth ity of tablet 14:37: in the [place] [address] morning. Medical tablet Branch busPIRone 2023-0 Yes 10mg Take 1 [facility] s 10 mg 3-26 tablet by ity of tablet 14:37: mouth in [place] [address] the Medical morning Branch and 1 tablet in the evening. rivaroxaban 2023-0 Yes 15mg Take 1 [facility] ers (XARELTO) 3-26 tablet by ity o f 15 mg 14:37: mouth in [place] tablet 13 the Medical morning. Branch aspirin 81 Yes 81mg Take 81 mg U nivers mg chewable 12-12 by mouth ity of tablet 14:37: in the [place] 13 morning. Medical tablet Branch tamsulosin Yes .4mg 0.4 mg, Univ ers (FLOMAX) 12-12 Oral, ity of capsule 0.4 14:00: DAILY, [place] mg 00 First dose Medical on [facility] 12/12/22 at 0900, Until Discontinu ed, Routine aspirin EC Yes 81mg 81 mg, Unive rs tablet 81 12-12 Oral, ity of mg 14:00: DAILY, [place] 00 First dose Medical on [facility] 12/12/22 at 0900, Until Discontinu ed, Routine methylpredn Yes 40mg 40 mg, Univ ers isolone sod 12-12 Intravenou it y of succ 14:00: s, DAILY, [place] (SOLU-MEDRO 00 First dose Me dical L) (after Branch injection last 40 mg modificati on) on [place] 12/12/22 at 0900, Until Discontinu ed, Routine carvediloL 2022- No 25mg Take 1 [facility] ers 25 mg 12-12 tablet by ity of tablet 11:47: 00:00 mouth in [place] 13 :00 the Medical morning Branch and [...] ity of tablet 11:47: 00:00 mouth in [place] 13 :00 the Medical morning. Branch hydroCHLORO 2022-0 2022- No 25mg Take 1 Uni vers thiazide 25 12-12 tablet by it y of mg tablet 11:47: 00:00 mouth in [place] 13 :00 the Medical morning. Branch melatonin Yes 6mg 6 mg, [facility] (MELATIN) 3-26 Oral, QHS, ity of tablet 6 mg 02:00: First dose [place] 00 on [facility] 12/11/22 at [place] 2100, Until Discontinu ed, Routine atorvastati Yes 40mg 40 mg, Univ ers n (LIPITOR) 3-26 Oral, QHS, it y of tablet 40 02:00: First dose [place] mg 00 on [facility] 12/11/22 at [place] 2100, Until Discontinu ed, Routine carvediloL 2022- No [id number] 3.125mg Take 1 [facility] 3.125 mg 3- 04-26 tablet by ity o f tablet 00:00: 04:59 mouth in [place] 00 :[address] [facility] and 1 tablet in the evening. Take with meals. Do all this for 30 days. atorvastati 2022- No [id number] 40mg Take 1 [facility] n 40 mg 3-12 01- tablet by ity of tablet 00:00: 04:59 mouth at [place] 00 :00 [facility] for 30 Branch days. donepeziL 5 2022- No [id number] 5mg Take 1 [facility] mg tablet -12 01- tablet by ity of 00:00: 04:59 mouth in [place] 00 :00 [facility] for 30 days. memantine 5 2022- No [id number] 5mg Take 1 [facility] mg tablet -12 01-26 tablet by ity of 00:00: 04:59 mouth in [place] 00 :00 [facility] for 30 days. carvediloL 2022- No [id number] 3.125mg Take 1 [facility] 3.125 mg 3-26 -26 tablet by ity o f tablet 00:00: 04:59 mouth in [place] 00 :00 [facility] and 1 tablet in the evening. Take with meals. Do all this for 30 days. atorvastati 2022- No [id number] 40mg Take 1 [facility] n 40 mg 3-26 04-26 tablet by ity of tablet 00:00: 04:59 mouth [facility] [place] 00 [facility] Branch [facility] donepeziL 5 2022- No [id number] 5mg Take 1 [facility] mg tablet -12 01- tablet by ity of 00:00: 04:59 mouth in [place] 00 :00 [facility] morning [place] for 30 days. memantine 5 2022- No [id number] 5mg Take 1 [facility] mg tablet 3-12 01- tablet by ity of 00:00: 04:59 mouth in [place] 00 :00 [facility] morning [place] for 30 days. carvediloL 2022- No [id number] 3.125mg Take 1 [facility] 3.125 mg 3-12 01-26 tablet by ity o f tablet 00:00: 04:59 mouth in [place] 00 :00 [facility] morning Branch and 1 tablet in the evening. Take with meals. Do all this for 30 days. atorvastati 2022- No [id number] 40mg Take 1 Univers n 40 mg -12 01- tablet by ity of tablet 00:00: 04:59 mouth at [place] 00 :00 bedtime Medical for 30 Branch days. donepeziL 5 2022- No [id number] 5mg Take 1 [facility] mg tablet 12-12- tablet by ity of 00:00: 04:59 mouth in [place] 00 :00 [facility] morning [place] for 30 days. memantine 5 2022- No [id number] 5mg Take 1 [facility] mg tablet -12 01- tablet by ity of 00:00: 04:59 mouth in [place] 00 :00 [facility] morning [place] for 30 days. carvediloL 2022- No [id number] 3.125mg Take 1 [facility] 3.125 mg 3-12 01- tablet by ity o f tablet 00:00: 04:59 mouth in [place] 00 :00 [facility] morning Branch and 1 tablet in the evening. Take with meals. Do all this for 30 days. atorvastati 2022- No [id number] 40mg Take 1 [facility] n 40 mg 3-12 01-26 tablet by ity of tablet 00:00: 04:59 mouth at [place] 00 :00 bedtime Medical for 30 Branch days. carvediloL 2022- No [id number] 3.125mg Take 1 [facility] 3.125 mg 3-12 01-26 tablet by ity o f tablet 00:00: 04:59 mouth in [place] 00 :00 the Medical morning Branch and 1 tablet in the evening. Take with meals. Do all this for 30 days. atorvastati 2022- No [id number] 40mg Take 1 [facility] n 40 mg 3-12 01-26 tablet by ity of tablet 00:: 04:59 mouth at [place] 00 :00 bedtime [facility] for 30 Branch days. carvediloL 2022- No [id number] 3.125mg Take 1 [facility] 3.125 mg 3-12 01-26 tablet by ity o f tablet 00:00: 04:59 mouth in [place] 00 :00 the [facility] morning [place] and 1 tablet in the evening. Take with meals. Do all this for 30 days. atorvastati 2022- No [id number] 40mg Take 1 [facility] n 40 mg -12 01- tablet by ity of tablet 00:: 04:59 mouth at [place] 00 :00 [facility] for 30 Branch days. donepeziL 5 2022- No [id number] 5mg Take 1 [facility] mg tablet -12 01- tablet by ity of 00:00: 00:00 mouth in [place] 00 :00 [facility] morning [place] for 30 days. memantine 5 2022- No [id number] 5mg Take 1 [facility] mg tablet -12 01-21 tablet by ity of 00:00: 00:00 mouth in [place] 00 :00 [facility] morning [place] for 30 days. donepeziL 5 2022- No [id number] 5mg Take 1 [facility] mg tablet -12 01-21 tablet by ity of 00:00: 00:00 mouth in [place] 00 :00 [facility] morning [place] for 30 days. memantine 5 2022- No [id number] 5mg Take 1 [facility] mg tablet -12 01-21 tablet by ity of 00:00: 00:00 mouth in [place] 00 :00 [facility] morning [place] for 30 days. levalbutero Yes 1.25mg 1.25 mg, Univers l (XOPENEX) 3-25 Inhalation it y of nebulizer 17:00: , QID, [place] solution 00 First dose Medic al 1.25 mg (after Branch last modificati on) on [facility] 12/11/22 at 1200, Until Discontinu ed, Routine rivaroxaban 2022-0 Yes 15mg 15 mg, Univ ers (XARELTO) 3-25 Oral, ity of tablet 15 14:00: DAILY, [place] mg 00 First dose Medical on [facility] Branch 12/11/22 at 0900, Until Discontinu ed, Routine nicotine 2022-0 Yes 1{patch 1 Patch, [facility] (NICODERM) 25 } Topical, ity o f 21 mg/24 hr 13:45: Administer [place] patch 1 00 over 24 Medical Patch Hours, Branch Q24H, First dose on [facility] 12/11/22 at 0845, Until Discontinu ed, Routine ipratropium 0 Yes .5mg 0.5 mg, Uni vers (ATROVENT) 325 Inhalation ity of 0.02 % 13:00: , QID, [place] nebulizer 00 First dose Medi lucho solution on [facility] Branch 0.5 mg 12/11/22 at 0800, Until Discontinu ed carvediloL 0 Yes 3.125mg 3.125 mg, Univers (COREG) 3-25 Oral, BID ity of tablet 13:00: MEALS, [place] 3.125 mg 00 First dose Medic al on [facility] 12/11/22 at 0800, Until Discontinu ed, Routine busPIRone 0 Yes 10mg 10 mg, Univer s (BUSPAR) 3-25 Oral, BID, ity o f tablet 10 13:00: First dose [place] mg 00 on [facility] Medical 12/11/22 at Branch 0800, Until Discontinu ed, Routine methylpredn 2022- No 125mg 125 mg, U nivers isolone sod 12-11 03-25 Intravenou i ty of succ 05:00: 12:35 s, Q6H, [place] (SOLU-MEDRO 00 :32 First dose Me dical L) on [facility] Branch injection 12/11/22 at 125 mg [...] ity of 0.02 % 23:48: , Q4HPRN, [place] nebulizer 58 Starting Medica l solution on [...] by ity of tablet 12:44: mouth in [place] [address] the Medical morning Branch and 1 tablet in the evening. Take with meals. busPIRone 2023-0 Yes 10mg Take 1 Univer s 10 mg 3-18 tablet by ity of tablet 12:44: mouth in [place] [address] the Medical morning Branch and 1 tablet in the evening. busPIRone 2023-0 Yes 30mg Take 1 Univer s 30 mg 3-18 tablet by ity of tablet 12:44: mouth in [place] [address] the Medical morning Branch and 1 tablet in the evening. KCL 20 mEq 3-0 Yes Take by Univ ers tablet 3-18 mouth 2 ity of 12:44: (two) [place] [address] times Medical daily. Branch benazepriL 3-0 Yes 10mg Take 1 Unive rs 10 mg 3-18 tablet by ity of tablet 12:44: mouth in [place] 03 the Medical morning. Branch rivaroxaban 3-0 Yes 15mg Take 1 Univ ers (XARELTO) 3-18 tablet by ity o f 15 mg 12:44: mouth in [place] tablet 03 the Medical morning. Branch carvediloL [...] by ity of tablet 12:44: mouth in [place] 03 the Medical morning Branch and 1 tablet in the evening. KCL 20 mEq 2023-0 Yes Take by Univ ers tablet 3-18 mouth 2 ity of 12:44: (two) [place] [address] times Medical daily. Branch benazepriL 2023-0 Yes 10mg Take 1 Unive rs 10 mg 3-18 tablet by ity of tablet 12:44: mouth in [place] 03 the Medical morning. Branch rivaroxaban 2023-0 Yes 15mg Take 1 Univ ers (XARELTO) 3-18 tablet by ity o f 15 mg 12:44: mouth in [place] tablet 03 the Medical morning. Branch carvediloL 2023-0 Yes 3.125mg Take 1 Un igor 3.125 mg 3-18 tablet by ity of tablet 12:44: mouth in [place] 03 the Medical morning Branch and 1 tablet in the evening. Take with meals. busPIRone 2023-0 Yes 10mg Take 1 Univer s 10 mg 3-18 tablet by ity of tablet 12:44: mouth in [place] 03 the Medical morning Branch and 1 tablet in the evening. busPIRone 2023-0 Yes 30mg Take 1 Univer s 30 mg 3-18 tablet by ity of tablet 12:44: mouth in [place] 03 the Medical morning Branch and 1 tablet in the evening. KCL 20 mEq 2023-0 Yes Take by Univ ers tablet 3-18 mouth 2 ity of 12:44: (two) [place] [address] times Medical daily. Branch benazepriL 2023-0 Yes 10mg Take 1 Unive rs 10 mg 3-18 tablet by ity of tablet 12:44: mouth in [place] 03 the Medical morning. Branch rivaroxaban 2022-0 Yes 15mg Take 1 Univ ers (XARELTO) 3-18 tablet by ity o f 15 mg 12:44: mouth in [place] tablet 03 the Medical morning. Branch carvediloL 2022-0 Yes 3.125mg Take 1 Un igor 3.125 mg 3-18 tablet by ity of tablet 12:44: mouth in [place] 03 the Medical morning Branch and 1 tablet in the evening. Take with meals. busPIRone 2023-0 Yes 10mg Take 1 Univer s 10 mg 3-18 tablet by ity of tablet 12:44: mouth in [place] 03 the Medical morning Branch and 1 tablet in the evening. busPIRone 2023-0 Yes 30mg Take 1 Univer s 30 mg 3-18 tablet by ity of tablet 12:44: mouth in [place] 03 the Medical morning Branch and 1 [...] the Medical morning. Branch albuterol 2022-0 Yes [id number] 2{puff} Inhale 2 Univers 90 3-18 Puffs ity of mcg/actuati 00:00: every 6 [place] on inhaler 00 (six) Medical hours as Branch needed for Wheezing or Shortness of Breath. albuterol 2022-0 Yes [id number] 2{puff} Inhale 2 Univers 90 3-18 Puffs ity of mcg/actuati 00:00: every 6 [place] on inhaler 00 (six) Medical hours as Branch needed for Wheezing or Shortness of Breath. albuterol 3-0 Yes [id number] 2{puff} Inhale 2 Univers 90 3-18 Puffs ity of mcg/actuati 00:00: every 6 [place] on inhaler 00 (six) Medical hours as Branch needed for Wheezing or Shortness of Breath. albuterol Yes [id number] 2{puff} Inhale 2 Univers 90 3-18 Puffs ity of mcg/actuati 00:00: every 6 [place] on inhaler 00 (six) Medical hours as Branch needed for Wheezing or Shortness of Breath. albuterol Yes [id number] 2{puff} Inhale 2 Univers 90 3-18 Puffs ity of mcg/actuati 00:00: every 6 [place] on inhaler 00 (six) Medical hours as Branch needed for Wheezing or Shortness of Breath. albuterol Yes [id number] 2{puff} Inhale 2 Univers 90 3-18 Puffs ity of mcg/actuati 00:00: every 6 [place] on inhaler 00 (six) Medical hours as Branch needed for Wheezing or Shortness of Breath. albuterol Yes [id number] 2{puff} Inhale 2 Univers 90 3-18 Puffs ity of mcg/actuati 00:00: every 6 [place] on inhaler 00 (six) Medical hours as Branch needed for Wheezing or Shortness of Breath. albuterol Yes [id number] 2{puff} Inhale 2 Univers 90 3-18 Puffs ity of mcg/actuati 00:00: every 6 [place] on inhaler 00 (six) Medical hours as Branch needed for Wheezing or Shortness of Breath. albuterol Yes [id number] 2{puff} Inhale 2 Univers 90 3-18 Puffs ity of mcg/actuati 00:00: every 6 [place] on inhaler 00 (six) Medical hours as Branch needed for Wheezing or Shortness of Breath. albuterol Yes [id number] 2{puff} Inhale 2 Univers 90 3-18 Puffs ity of mcg/actuati 00:00: every 6 [place] on inhaler 00 (six) Medical hours as Branch needed for Wheezing or Shortness of Breath. albuterol Yes [id number] 2{puff} Inhale 2 Univers 90 3-18 Puffs ity of mcg/actuati 00:00: every 6 [place] on inhaler 00 (six) Medical hours as Branch needed for Wheezing or Shortness of Breath. albuterol Yes [id number] 2{puff} Inhale 2 Univers 90 3-18 Puffs ity of mcg/actuati 00:00: every 6 [place] on inhaler 00 (six) Medical hours as Branch needed for Wheezing or Shortness of Breath. albuterol 2022- No [id number] 2{puff} Inhale 2 Univers 90 3-18 05-03 Puffs ity of mcg/actuati 00:00: 00:00 every 6 [place] on inhaler 00 :00 (six) Medical hours as Branch needed for Wheezing or Shortness of Breath. tiotropium 2022- No [id number] 18ug Inhale 1 Univers 18 mcg 3-18 04-18 capsule in ity of inhalation 00:00: 04:59 the [place] 00 :00 morning Medical for 30 Branch days. tiotropium 2022- No [id number] 18ug Inhale 1 Univers 18 mcg 3-18 04-18 capsule in ity of inhalation 00:00: 04:59 the [place] 00 :00 morning Medical for 30 Branch days. tiotropium 2022- No [id number] 18ug Inhale 1 Univers 18 mcg 3-18 04-18 capsule in ity of inhalation 00:00: 04:59 the [place] 00 :00 morning Medical for 30 Branch days. tiotropium 2022- No [id number] 18ug Inhale 1 Univers 18 mcg 3-18 04-18 capsule in ity of inhalation 00:00: 04:59 the [place] 00 :00 morning Medical for 30 Branch days. tiotropium 2022- No [id number] 18ug Inhale 1 Univers 18 mcg 3-18 04-18 capsule in ity of inhalation 00:00: 04:59 the [place] 00 :00 morning Medical for 30 Branch days. tiotropium 2022- No [id number] 18ug Inhale 1 Univers 18 mcg 3-18 04-18 capsule in ity of inhalation 00:00: 04:59 the [place] 00 :00 morning Medical for 30 Branch days. tiotropium 2022- No [id number] 18ug Inhale 1 Univers 18 mcg 3-18 04-18 capsule in ity of inhalation 00:00: 04:59 the [place] 00 :00 morning Medical for 30 Branch days. tiotropium 2022-2022- No [id number] 18ug Inhale 1 Univers 18 mcg 3-18 04-18 capsule in ity of inhalation 00:00: 04:59 the [place] 00 :00 morning Medical for 30 Branch days. doxycycline 2022-0 2022- No [id number] 100mg Take 1 Univers hyclate 100 3-18 03-24 capsule by i ty of mg capsule 00:00: 04:59 mouth [place] 00 :00 every 12 Medical ([facility]) Branch hours for 5 days. predniSONE 2022-0 2022- No [id number] 40mg Take 2 Univers 20 mg 3-18 03-24 tablets by ity of tablet 00:00: 04:59 mouth in [place] 00 :00 the [facility] morning Branch for 5 days. doxycycline 2022-2022- No [id number] 100mg Take 1 Univers hyclate 100 3-18 03-24 capsule by i ty of mg capsule 00:00: 04:59 mouth [place] 00 :00 every 12 Medical ([facility]) Branch hours for 5 days. predniSONE 2022-0 2022- No [id number] 40mg Take 2 Univers 20 mg 3-18 03-24 tablets by ity of tablet 00:00: 04:59 mouth in [place] 00 :00 the [facility] morning Branch for 5 days. rivaroxaban Yes [...] it y of nebulizer 13:00: , Q4H, [place] solution 00 First dose Medic al 1.25 mg on [place] Branch 12/02/22 at 0800, Until Discontinu ed, Routine ipratropium 2022-0 Yes .5mg 0.5 mg, Uni vers (ATROVENT) 12-02 Inhalation ity of 0.02 % 13:00: , Q4H, [place] nebulizer 00 First dose Medi lucho solution [...] IV Push, ity of (PF)) 11:30: Q6HPRN, [place] injection 4 03 Starting Medi lucho mg [...] 12-02 Oral, ity of (TYLENOL) 11:30: Q6HPRN, [place] tablet 650 03 Starting Medic al mg [...] 0.02 % 12:30: 12:38 , ONCE, 1 [place] nebulizer 00 :00 dose, On Medica l [...] 0.02 % 10:30: 10:38 , ONCE, 1 [place] nebulizer 00 :00 dose, On Medica l solution Wed Branch 0.5 mg 12/01/22 at 0530, MICHAEL methylPREDN No 40mg 40 mg, Uni vers ISolone sod 12-01 Intravenou i ty of succ 10:30: 10:35 s, ONCE, 1 [place] (SOLU-MEDRO 00 :00 dose, On Medi lucho L (PF)) Wed Branch injection 12/01/22 at 40 mg 0530, MICHAEL Nebulizer & 0 Yes [id number] Use as Univers Compressor 3-15 directed ity o f For Neb 00:00: Medical Branch albuterol 0 Yes [id number] 2{puff} Inhale 2 Univers 90 3-15 Puffs ity of mcg/actuati 00:00: every 4 [place] on inhaler 00 (four) Medical hours as Branch needed for Wheezing or Shortness of Breath. Nebulizer & 0 Yes [id number] Use as Univers Compressor 3-15 directed ity o f For Neb 00:00: [place] Medical Branch albuterol 2023-0 Yes [id number] 2{puff} Inhale 2 Univers 90 3-15 Puffs ity of mcg/actuati 00:00: every 4 [place] on inhaler 00 (four) Medical hours as Branch needed for Wheezing or Shortness of Breath. Nebulizer & 2022-0 Yes [id number] Use as Univers Compressor 3-15 directed ity o f For Neb 00:00: Medical Branch albuterol 2022-0 Yes [id number] 2{puff} Inhale 2 Univers 90 3-15 Puffs ity of mcg/actuati 00:00: every 4 [place] on inhaler 00 (four) Medical hours as Branch needed for Wheezing or Shortness of Breath. Nebulizer & 0 Yes [id number] Use as Univers Compressor 3-15 directed ity o f For Neb 00:00: Medical Branch Nebulizer & 2022-0 Yes [id number] Use as Univers Compressor 3-15 directed ity o f For Neb 00:00: Medical Branch Nebulizer & 2022-0 Yes [id number] Use as Univers Compressor 3-15 directed ity o f For Neb 00:00: Medical Branch Nebulizer & 2022-0 Yes [id number] Use as Univers Compressor 3-15 directed ity o f For Neb 00:00: Medical Branch Nebulizer & 2022-0 Yes [id number] Use as Univers Compressor 3-15 directed ity o f For Neb 00:00: Medical Branch Nebulizer & 2022-0 Yes [id number] Use as Univers Compressor 3-15 directed ity o f For Neb 00:00: Medical Branch Nebulizer & 2022-0 Yes [id number] Use as Univers Compressor 3-15 directed ity o f For Neb 00:00: Medical Branch Nebulizer & 2022-0 Yes [id number] Use as Univers Compressor 3-15 directed ity o f For Neb 00:00: Medical Branch Nebulizer & 2022-0 Yes [id number] Use as Univers Compressor 3-15 directed ity o f For Neb 00:00: Medical Branch Nebulizer & 2022-0 Yes [id number] Use as Univers Compressor 3-15 directed ity o f For Neb 00:00: Medical Branch Nebulizer & 3-0 Yes [id number] Use as Univers Compressor 3-15 directed ity o f For Neb 00:00: Medical Branch Nebulizer & 2022-0 Yes [id number] Use as Univers Compressor 3-15 directed ity o f For Neb 00:00: Medical Branch Nebulizer & 3-0 Yes [id number] Use as Univers Compressor 3-15 directed ity o f For Neb 00:00: Medical Branch Nebulizer & 3-0 Yes [id number] Use as Univers Compressor 3-15 directed ity o f For Neb 00:00: Medical Branch Nebulizer & 2022-0 Yes [id number] Use as Univers Compressor 3-15 directed ity o f For Neb 00:00: Medical Branch Nebulizer & 2022-0 Yes [id number] Use as Univers Compressor 3-15 directed ity o f For Neb 00:00: Medical Branch Nebulizer & 2022-0 Yes [id number] Use as Univers Compressor 3-15 directed ity o f For Neb 00:00: Medical Branch Nebulizer & 2022-0 Yes [id number] Use as Univers Compressor 3-15 directed ity o f For Neb 00:00: Medical Branch Nebulizer & 2022-0 Yes [id number] Use as Univers Compressor 3-15 directed ity o f For Neb 00:00: Medical Branch Nebulizer & 2022-0 Yes [id number] Use as Univers Compressor 3-15 directed ity o f For Neb 00:00: Medical Branch Nebulizer & 2022-0 Yes [id number] Use as Univers Compressor 3-15 directed ity o f For Neb 00:00: Medical Branch Nebulizer & 2022-0 Yes [id number] Use as Univers Compressor 3-15 directed ity o f For Neb 00:00: Medical Branch Nebulizer & 2022-0 Yes [id number] Use as Univers Compressor 3-15 directed ity o f For Neb 00:00: Medical Branch Nebulizer & 2022-0 Yes [id number] Use as Univers Compressor 3-15 directed ity o f For Neb 00:00: Medical Branch Nebulizer & 2022-0 Yes [id number] Use as Univers Compressor 3-15 directed ity o f For Neb 00:00: Medical Branch Nebulizer & 2022-0 Yes [id number] Use as Univers Compressor 3-15 directed ity o f For Neb 00:00: Medical Branch Nebulizer & 2022-0 Yes [id number] Use as Univers Compressor 3-15 directed ity o f For Neb 00:00: Medical Branch Nebulizer & 2022-0 Yes [id number] Use as Univers Compressor 3-15 directed ity o f For Neb 00:00: Medical Branch Nebulizer & 2022-0 Yes [id number] Use as Univers Compressor 3-15 directed ity o f For Neb 00:00: Medical Branch Nebulizer & 2022-0 Yes [id number] Use as Univers Compressor 3-15 directed ity o f For Neb 00:00: Medical Branch Nebulizer & 2022-0 Yes [id number] Use as Univers Compressor 3-15 directed ity o f For Neb 00:00: Medical Branch Nebulizer & 2022-0 Yes [id number] Use as Univers Compressor 3-15 directed ity o f For Neb 00:00: Medical Branch Nebulizer & 2022-0 Yes [id number] Use as Univers Compressor 3-15 directed ity o f For Neb 00:00: Medical Branch Nebulizer & 2022-0 Yes [id number] Use as Univers Compressor 3-15 directed ity o f For Neb 00:00: Medical Branch Nebulizer & 2022-0 Yes [id number] Use as Univers Compressor 3-15 directed ity o f For Neb 00:00: Medical Branch albuterol 0 Yes [id number] 2{puff} Inhale 2 Univers 90 3-15 Puffs ity of mcg/actuati 00:00: every 4 [place] on inhaler 00 (four) Medical hours as Branch needed for Wheezing or Shortness of Breath. predniSONE 2022-0 Yes [id number] 50mg Take 1 Univers 50 mg 3-15 tablet by ity of tablet 00:00: mouth in [place] 00 the Medical morning. Branch Nebulizer & Yes [id number] Use as Univers Compressor 3-15 directed ity o f For Neb 00:00: [place] 00 Medical Branch albuterol Yes [id number] 2{puff} Inhale 2 Univers 90 3-15 Puffs ity of mcg/actuati 00:00: every 4 [place] on inhaler 00 (four) Medical hours as Branch needed for Wheezing or Shortness of Breath. albuterol 2022- No [id number] 2{puff} Inhale 2 Univers 90 3-15 03-26 Puffs ity of mcg/actuati 00:00: 00:00 every 4 [place] on inhaler 00 :00 (four) Medical hours as Branch needed for Wheezing or Shortness of Breath. predniSONE 2022- No [id number] 50mg Take 1 Univers 50 mg 12-01 03-18 tablet by ity of tablet 00:00: 00:00 mouth in [place] 00 :00 the Medical morning. Branch omeprazole 2022- No 40mg Take 40 mg Univers 40 mg 11-28-12 by mouth ity of capsule 14:11: 00:00 daily. [place] : Medical Branch carvediloL 2022- No 25mg Take 25 mg Univers 25 mg 11-28-12 by mouth 2 ity of tablet 14:11: 00:00 (two) [place] 21 :00 times Medical daily with Branch meals. busPIRone 2022- No 30mg Take 30 mg U nivers 30 mg 11-28-12 by mouth 2 ity of tablet 14:11: 00:00 (two) [place] 21 :00 times Medical daily. Branch benazepriL 2022- No 10mg Take 10 mg Univers 10 mg 11-28-12 by mouth ity of tablet 14:11: 00:00 daily. [place] 21 :00 Medical Branch hydroCHLORO 2022- No 25mg Take 25 mg Univers thiazide 25 11-28-12 by mouth ity of mg tablet 14:11: 00:00 daily. [place] 21 :00 Medical Branch levalbutero Yes .63mg 0.63 mg, U nivers l (XOPENEX) 3-12 Inhalation it y of nebulizer 13:00: , TID, [place] solution 00 First dose Medic al 0.63 mg (after Branch last modificati on) on [place] 11/28/22 at 0800, Until Discontinu ed, Routine ipratropium 2023-0 Yes .5mg 0.5 mg, Uni vers (ATROVENT) 3-11 Inhalation ity of 0.02 % 20:00: , TID, [place] nebulizer 00 First dose Medi lucho solution (after Branch 0.5 mg last modificati on) on [facility] 11/27/22 at 1400, Until Discontinu ed, Routine nicotine 3-0 Yes 1{patch 1 Patch, [facility] igor (NICODERM) 3 } Topical, ity o f 21 mg/24 hr 17:30: Administer [place] patch 1 00 over 24 Medical Patch Hours, Branch Q24H, First dose on [facility] 11/27/22 at 1130, Until Discontinu ed, Routine busPIRone 2022-0 Yes 10mg 10 mg, Univer s (BUSPAR) 3-11 Oral, TID, ity o f tablet 10 16:15: First dose [place] mg 00 on [facility] Medical 11/27/22 at Branch 1015, Until Discontinu ed, Routine aspirin 2023-0 Yes 81mg 81 mg, Univers chewable 11-27 Oral, ity of tablet 81 16:15: DAILY, [place] mg 00 First dose Medical on [facility] 11/27/22 at 1015, Until Discontinu ed, Routine foLIC acid 2022-0 Yes 1mg 1 mg, Univer s (FOLATE) 3 Oral, ity of tablet 1 mg 15:00: DAILY, [place] 00 First dose Medical on [facility] Branch 11/27/22 at 0900, Until Discontinu ed, Routine rivaroxaban 2023-0 Yes 20mg 20 mg, Univ ers (XARELTO) 3-11 Oral, ity of tablet 20 15:00: DAILY, [place] mg 00 First dose Medical on [facility] Branch 11/27/22 at 0900, Until Discontinu ed, Routine omeprazole 2023-0 Yes 40mg 40 mg, Unive rs (PRILOSEC) 3-11 Oral, ity of capsule 40 15:00: DAILY, [place] mg 00 First dose Medical on [facility] 11/27/22 at 0900, Until Discontinu ed predniSONE 2022- No 40mg 40 mg, Univ ers (DELTASONE) 11-2716 Oral, ity of tablet 40 15:00: 13:59 DAILY, 5 [place] mg 00 :00 doses, Medical First dose Branch on [facility] 11/27/22 at 0900, Last dose on Tue12/01/22 at 0900, Routine carvediloL Yes 25mg 25 mg, Unive rs (COREG) 11-27 Oral, BID ity of tablet 25 14:00: MEALS, [place] mg 00 First dose Medical on [facility] 11/27/22 at 0800, Until Discontinu ed, Routine levalbutero 2022- No .31mg 0.31 mg, Univers l (XOPENEX) 11-2712 Inhalation i ty of nebulizer 14:00: 12:33 , TID, [place] solution 00 :58 First dose Medic al 0.31 mg on [facility] 11/27/22 at 0800, Until Discontinu ed, Routine ipratropium 2022- No .5mg 0.5 mg, Un igor (ATROVENT) 11-27 Inhalation it y of 0.02 % 14:00: 18:48 , QID, [place] nebulizer 00 :56 First dose Medi lucho solution on [facility] 0.5 mg 11/27/22 at 0800, Until Discontinu ed, Routine thiamine Yes 100mg 100 mg, Unive rs (VITAMIN 11-27 Oral, ity of B1) tablet 08:30: DAILY, [place] 100 mg 00 First dose Medical (after Branch last modificati on) on [facility] 11/27/22 at 0230, Until Discontinu ed, Routine LORazepam Yes 1mg 1 mg, Slow [facility] ig[facility] (ATIVAN) 11-27 IV Push, ity of injection 1 08:16: Q4HPRN, [place] mg 19 Starting Medical on [facility] 11/27/22 at 0216, Until Discontinu [...] at 2000, Routine thiamine 3-0 2022- No [id number] 100mg Take 1 Univers 100 mg 2-24 -27 tablet by ity of tablet 00:00: 04:59 mouth in [place] 00 :00 [facility] for 30 days. thiamine 2022-0 3- No [id number] 100mg Take 1 [facility] 100 mg 2-24 -27 tablet by ity of tablet 00:00: 04:59 mouth in [place] 00 :00 [facility] for 30 days. thiamine 202-0 2023- No [id number] 100mg Take 1 [facility] 100 mg 2-24 -27 tablet by ity of tablet 00:00: 04:59 mouth in [place] 00 :00 [facility] [facility] for 30 days. thiamine 2023-0 2023- No [id number] 100mg Take 1 [facility] 100 mg 2-24 -27 tablet by ity of tablet 00:00: 04:59 mouth in [place] 00 :00 [facility] for 30 days. thiamine 2023-0 2023- No [id number] 100mg Take 1 [facility] 100 mg 2-24 -27 tablet by ity of tablet 00:00: 04:59 mouth in [place] 00 :00 [facility] for 30 days. thiamine 2023-0 2023- No [id number] 100mg Take 1 [facility] 100 mg 2-24 03-12 tablet by ity of tablet 00:00: 00:00 mouth in [place] 00 :00 the [facility] Branch for 30 days. thiamine 2023-0 Yes 100mg 100 mg, Unive rs (VITAMIN 2-23 Oral, ity of B1) tablet 15:00: DAILY, [place] 100 mg 00 First dose Medical on [facility] Branch 11/11/22 at 0900, Until Discontinu ed, Routine omeprazole 2023-0 Yes 40mg Take 40 mg U nivers 40 mg 2-23 by mouth ity of capsule 13:41: daily. [address] carvediloL 2023-0 Yes 25mg Take 25 mg U nivers 25 mg 2-23 by mouth 2 ity of tablet 13:41: (two) [place] [address] times Medical daily with Branch meals. busPIRone 2023-0 Yes 30mg Take 30 mg Un ig[place] 30 mg 2-23 by mouth 2 ity of tablet 13:41: (two) [place] [address] times Medical daily. Branch benazepriL 2023-0 Yes 10mg Take 10 mg U nivers 10 mg 2-23 by mouth ity of tablet 13:41: daily. [address] hydroCHLORO 2023-0 Yes 25mg Take 25 mg Univers thiazide 25 2-23 by mouth ity of mg tablet 13:41: daily. [address] omeprazole 2023-0 Yes 40mg Take 40 mg U nivers 40 mg 2-23 by mouth ity of capsule 13:41: daily. [address] carvediloL 2023-0 Yes 25mg Take 25 mg U nivers 25 mg 2-23 by mouth 2 ity of tablet 13:41: (two) [place] [address] times Medical daily with Branch meals. busPIRone 2023-0 Yes 30mg Take 30 mg Un [place] 30 mg 2-23 by mouth 2 ity of tablet 13:41: (two) [place] [address] times Medical daily. Branch benazepriL 2023-0 Yes 10mg Take 10 mg U nivers 10 mg 2-23 by mouth ity of tablet 13:41: daily. [address] hydroCHLORO 2023-0 Yes 25mg Take 25 mg Univers thiazide 25 2-23 by mouth ity of mg tablet 13:41: daily. [address] omeprazole 2023-0 Yes 40mg Take 40 mg U nivers 40 mg 2-23 by mouth ity of capsule 13:41: daily. [address] carvediloL 2023-0 Yes 25mg Take 25 mg U nivers 25 mg 2-23 by mouth 2 ity of tablet 13:41: (two) [place] [address] times Medical daily with Branch meals. busPIRone 2023-0 Yes 30mg Take 30 mg Un [place] 30 mg 2-23 by mouth 2 ity of tablet 13:41: (two) [place] [address] times Medical daily. Branch benazepriL 2023-0 Yes 10mg Take 10 mg U nivers 10 mg 2-23 by mouth ity of tablet 13:41: daily. [address] hydroCHLORO 2023-0 Yes 25mg Take 25 mg [facility] thiazide 25 2-23 by mouth ity of mg tablet 13:41: daily. [address] omeprazole 2023-0 Yes 40mg Take 40 mg U nivers 40 mg 2-23 by mouth ity of capsule 13:41: daily. [address] carvediloL 2023-0 Yes 25mg Take 25 mg U nivers 25 mg 2-23 by mouth 2 ity of tablet 13:41: (two) [place] [address] times Medical daily with Branch meals. busPIRone 2023-0 Yes 30mg Take 30 mg Un [place] 30 mg 2-23 by mouth 2 ity of tablet 13:41: (two) [place] [address] times Medical daily. Branch benazepriL 2023-0 Yes 10mg Take 10 mg U nivers 10 mg 2-23 by mouth ity of tablet 13:41: daily. [address] hydroCHLORO 2023-0 Yes 25mg Take 25 mg Univers thiazide 25 2-23 by mouth ity of mg tablet 13:41: daily. [address] omeprazole 2023-0 Yes 40mg Take 40 mg U nivers 40 mg 2-23 by mouth ity of capsule 13:41: daily. [address] carvediloL 2023-0 Yes 25mg Take 25 mg U nivers 25 mg 2-23 by mouth 2 ity of tablet 13:41: (two) [place] [address] times Medical daily with Branch meals. busPIRone 2023-0 Yes 30mg Take 30 mg [place] 30 mg 2-23 by mouth 2 ity of tablet 13:41: (two) [place] [address] times Medical daily. Branch benazepriL 2023-0 Yes 10mg Take 10 mg U nivers 10 mg 2-23 by mouth ity of tablet 13:41: daily. [address] Branch hydroCHLORO 0 Yes 25mg Take 25 mg Univers thiazide 25 2-23 by mouth ity of mg tablet 13:41: daily. [address] foLIC acid 0 2022- No 1mg 1 mg, Unive rs (FOLATE) 2-11 11- Oral, ity of tablet 1 mg 00:15: 00:26 ONCE, 1 [place] 00 :00 dose, On Medical Wed Branch 11/10/22 at 1815, Routine benzocaine- 0 Yes [id number] 1{lozen Take 1 Univers menthoL 2-23 ge} Lozenge by ity of lozenge 00:00: mouth [place] [address] every 4 Medical (four) Branch hours as needed for Sore throat. budesonide- Yes [id number] 2{puff} Inhale 2 Univers formoteroL 2-23 Puffs in ity o f 80-4.5 00:00: the [facility]/actuati morning Medic al on inhaler and 2 Branch Puffs in the evening. benzocaine- Yes [id number] 1{lozen Take 1 Univers menthoL 2-23 ge} Lozenge by ity of lozenge 00:00: mouth [place] 00 every 4 Medical (four) Branch hours as needed for Sore throat. budesonide- Yes [id number] 2{puff} Inhale 2 Univers formoteroL 2-23 Puffs in ity o f 80-4.5 00:00: the [facility]/actuati morning Medic al on inhaler and 2 Branch Puffs in the evening. benzocaine- Yes [id number] 1{lozen Take 1 Univers menthoL 2-23 ge} Lozenge by ity of lozenge 00:00: mouth [place] every 4 Medical (four) Branch hours as needed for Sore throat. budesonide- Yes [id number] 2{puff} Inhale 2 Univers formoteroL 2-23 Puffs in ity o f 80-4.5 00:00: the [place] mcg/actuati morning Medic al on inhaler and 2 Branch Puffs in the evening. benzocaine- 2022-0 Yes [id number] 1{lozen Take 1 Univers menthoL 2-23 ge} Lozenge by ity of lozenge 00:00: mouth [place] 00 every 4 Medical (four) Branch hours as needed for Sore throat. budesonide- 2022-0 Yes [id number] 2{puff} Inhale 2 Univers formoteroL 2-23 Puffs in ity o f 80-4.5 00:00: the [place] mcg/actuati 00 morning Medic al on inhaler and 2 Branch Puffs in the evening. benzocaine- 2022-0 Yes [id number] 1{lozen Take 1 Univers menthoL 2-23 ge} Lozenge by ity of lozenge 00:00: mouth [place] 00 every 4 Medical (four) Branch hours as needed for Sore throat. budesonide- 2022-0 Yes [id number] 2{puff} Inhale 2 Univers formoteroL 2-23 Puffs in ity o f 80-4.5 00:00: the [place] mcg/actuati 00 morning Medic al on inhaler and 2 Branch Puffs in the evening. benzocaine- 0 2022- No [id number] 1{lozen Take 1 Univers menthoL 2-23 03-12 ge} Lozenge by ity o f lozenge 00:00: 00:00 mouth [place] 00 :00 every 4 Medical (four) Branch hours as needed for Sore throat. budesonide- 0 2022- No [id number] 2{puff} Inhale 2 Univers formoteroL 2-23 03-12 Puffs in ity of 80-4.5 00:00: 00:00 the [place] mcg/actuati 00 :00 morning Medic al on inhaler and 2 Branch Puffs in the evening. sodium 2022-2022- No [id number] 1g Take 1 Uni vers chloride 1 2-23 03-06 tablet by ity of gram tablet 00:00: 05:59 mouth in [place] 00 :00 the Medical morning Branch and 1 tablet at noon and 1 tablet in the evening. Take with meals. Do all this for 10 days. sodium 2022-0 2022- No [id number] 1g Take 1 Uni vers chloride 1 2-23 03-06 tablet by ity of gram tablet 00:00: 05:59 mouth in [place] 00 :[address] [facility] and 1 tablet at noon and 1 tablet in the evening. Take with meals. Do all this for 10 days. sodium 2023-0 3- No [id number] 1g Take 1 Uni vers chloride 1 11-11- tablet by ity of gram tablet 00:00: 05:59 mouth in [place] 00 :[address] [facility] and 1 tablet at noon and 1 tablet in the evening. Take with meals. Do all this for 10 days. sodium 2023-0 2023- No [id number] 1g Take 1 Uni vers chloride 1 11-11- tablet by ity of gram tablet 00:00: 05:59 mouth in [place] 00 :[address] [facility] and 1 tablet at noon and 1 tablet in the evening. Take with meals. Do all this for 10 days. levoFLOXaci 2023-0 2023- No [id number] 750mg Take 1 Univers n 750 mg 11-11 tablet by ity o f tablet 00:00: 05:59 mouth [place] 00 :00 every 24 Medical ([facility] ur) hours for 5 days. levoFLOXaci 2023-0 3- No [id number] 750mg Take 1 Univers n 750 mg 11-11 tablet by ity o f tablet 00:00: 05:59 mouth [place] 00 :00 every 24 Medical ([facility] ur) hours for 5 days. predniSONE 2023-0 2023- No [id number] 40mg Take 2 Univers 20 mg 11-11- tablets by ity of tablet 00:00: 05:59 mouth in [place] 00 :00 [facility] for 3 days. predniSONE 2023-0 2023- No [id number] 40mg Take 2 Univers 20 mg 2-11 11-27 tablets by ity of tablet 00:00: 05:59 mouth in [place] 00 :00 [facility] for 3 days. sodium 3-0 Yes 1g 1 g, Oral, Unive rs chloride 2- TID MEALS, ity o f tablet 1 g 23:15: First dose [place] 00 on Tue11/10/22 at [place] 1715, Until Discontinu ed, Routine benzocaine- 2022-0 Yes 1{lozen 1 Lozenge, Univers menthoL 2-22 ge} Oral, ity of (CEPACOL 20:49: Q4HPRN, [place] SORE THROAT 25 Starting Medi lucho (JACINTO-MEN)) [...] ty of succ 15:00: 14:59 s, DAILY, [place] (SOLU-MEDRO 00 :00 4 doses, Medi lucho [...] First dose [place] mg 00 on [facility] 11/09/22 at Branch 1999, Until Discontinu ed, Routine carvediloL 2022-0 Yes 25mg 25 mg, Unive rs (COREG) - Oral, BID ity of tablet 25 23:00: MEALS, [place] mg 00 First dose Medical on [facility] 11/09/22 at 1700, Until Discontinu ed, Routine ipratropium 2022-0 Yes .5mg 0.5 mg, Uni vers (ATROVENT) 2-21 Inhalation ity of 0.02 % 22:00: , Q4H, [place] nebulizer 00 First dose Medi lucho solution on [facility] 0.5 mg 11/09/22 at 1600, Until Discontinu ed, Routine albuterol 2022-0 Yes 2.5mg 2.5 mg, Univ ers (PROVENTIL) 2-21 Inhalation it y of 2.5 mg /3 22:00: , Q4H, [place] mL (0.083 00 First dose Medi lucho %) on [facility] nebulizer 11/09/22 at solution 1600, 2.5 mg [...] IV Push, ity of (PF)) 20:04: Q6HPRN, [place] injection 4 17 Starting Medi lucho mg on Branch 11/09/22 at 1404, Until Discontinu ed, Routine, Nausea and Vomiting (N/V) acetaminoph 2022-0 Yes 650mg 650 mg, Un igor en 11-09 Oral, ity of (TYLENOL) 20:04: Q6HPRN, [place] tablet 650 07 Starting Medic al mg on [facility] Branch 11/09/22 at 1404, Until Discontinu ed, Routine, Pain (scale 1-3), Temp > 38 C albuterol 2022-0 2023- No 5mg 5 mg, Univer s (PROVENTIL) 11-09 Inhalation i ty of 2.5 mg /3 14:00: 14:05 , ONCE, 1 [place] mL (0.083 00 :00 dose, On Medica l %) [facility] nebulizer 11/09/22 at solution 5 0800, STAT mg albuterol 2022-0 2022- No 10mg 10 mg, Unive rs (PROVENTIL) 11-09 Inhalation i ty of 2.5 mg /3 11:00: 11:04 , ONCE, 1 [place] mL (0.083 00 :00 dose, On Medica l %) [facility] nebulizer 11/09/22 at solution 10 0500, STAT mg ipratropium 2022-0 2022- No .5mg 0.5 mg, Un igor (ATROVENT) 11-09 Inhalation it y of 0.02 % 09:00: 08:59 , ONCE, 1 [place] nebulizer 00 :00 dose, On Medica l solution [facility] Branch 0.5 mg 11/09/22 at 0300, MICHAEL [...] 0145, STAT 2.5 mg cephALEXin 2020-0 Yes [id number] 500mg Take 1 Univers (KEFLEX) 05-22 capsule by ity o f 500 mg 00:00: mouth 4 [place] capsule 00 (four) Medical times Branch daily. cephALEXin 2020-0 Yes [id number] 500mg Take 1 Univers (KEFLEX) 05-22 capsule by ity o f 500 mg 00:00: mouth 4 [place] capsule 00 (four) Medical times Branch daily. cephALEXin 2020-0 2022- No [id number] 500mg Take 1 Univers (KEFLEX) 9-03 02-23 capsule by ity of 500 mg 00:00: 00:00 mouth 4 [place] capsule 00 :00 (four) Medical times Branch daily. cefTRIAXone 2020-0 202- No 1000mg 1,000 mg, Univers (ROCEPHIN) 12-12-26 IV ity of 1,000 mg in 19:00: 18:23 Piggyback, [place] NaCl 0.9% 00 :00 ONCE, 1 Medical (NS) 50 mL dose, Fri Bran ch MINI-BAG 12/12/20 at 1400, 50 mL
Reas on for Anti-Infec tive: Empiric Therapy for Suspected Infection< br>Empiric Therapy Site: Urine
D uration of therapy: 72 hours carvediloL 2020-0 Yes 25mg Take 25 mg U nivers 25 mg 3-26 by mouth 2 ity of tablet 18:38: (two) [address] daily with Branch meals. busPIRone 2020-0 Yes 30mg Take 30 mg Un igor 30 mg 3-26 by mouth 2 ity of tablet 18:38: (two) [address] daily. Branch benazepriL 2020-0 Yes 10mg Take 10 mg U nivers 10 mg 3-26 by mouth ity of tablet 18:38: daily. [address] hydroCHLORO 2020-0 Yes 25mg Take 25 mg Univers thiazide 25 3-26 by mouth ity of mg tablet 18:38: daily. [address] carvediloL 2020-0 Yes 25mg Take 25 mg U nivers 25 mg 3-26 by mouth 2 ity of tablet 18:38: (two) [address] daily with Branch meals. busPIRone 2020-0 Yes 30mg Take 30 mg Un igor 30 mg 3-26 by mouth 2 ity of tablet 18:38: (two) [address] daily. Branch benazepriL 2020-0 Yes 10mg Take 10 mg U nivers 10 mg 3-26 by mouth ity of tablet 18:38: daily. [address] hydroCHLORO 2020-0 Yes 25mg Take 25 mg Univers thiazide 25 3-26 by mouth ity of mg tablet 18:38: daily. [address] carvediloL 2020-0 Yes 25mg Take 25 mg U nivers 25 mg 3-26 by mouth 2 ity of tablet 18:38: (two) [place] [address] times Medical daily with Branch meals. busPIRone 2021-0 Yes 30mg Take 30 mg Un igor 30 mg 3-26 by mouth 2 ity of tablet 18:38: (two) [place] 04 times Medical daily. Branch benazepriL 2021-0 Yes 10mg Take 10 mg U nivers 10 mg 3-26 by mouth ity of tablet 18:38: daily. [address] hydroCHLORO 2021-0 Yes 25mg Take 25 mg Univers thiazide 25 3-26 by mouth ity of mg tablet 18:38: daily. [address] carvediloL 2021-0 Yes 25mg Take 25 mg U nivers 25 mg 3-26 by mouth 2 ity of tablet 18:38: (two) [place] [address] times Medical daily with Branch meals. busPIRone 2021-0 Yes 30mg Take 30 mg Un igor 30 mg 3-26 by mouth 2 ity of tablet 18:38: (two) [place] [address] times Medical daily. Branch benazepriL 2021-0 Yes 10mg Take 10 mg U nivers 10 mg 3-26 by mouth ity of tablet 18:38: daily. [address] hydroCHLORO 2021-0 Yes 25mg Take 25 mg Univers thiazide 25 3-26 by mouth ity of mg tablet 18:38: daily. [address] carvediloL 2021-0 Yes 25mg Take 25 mg U nivers 25 mg 3-26 by mouth 2 ity of tablet 18:38: (two) [place] [address] times Medical daily with Branch meals. busPIRone 2021-0 Yes 30mg Take 30 mg Un igor 30 mg 3-26 by mouth 2 ity of tablet 18:38: (two) [place] 04 times Medical daily. Branch benazepriL 2021-0 Yes 10mg Take 10 mg U nivers 10 mg 3-26 by mouth ity of tablet 18:38: daily. [address] hydroCHLORO 2021-0 Yes 25mg Take 25 mg Univers thiazide 25 3-26 by mouth ity of mg tablet 18:38: daily. [address] carvediloL 2021-0 Yes 25mg Take 25 mg U nivers 25 mg 3-26 by mouth 2 ity of tablet 18:38: (two) [place] [address] times Medical daily with Branch meals. busPIRone 2021-0 Yes 30mg Take 30 mg Un igor 30 mg 3-26 by mouth 2 ity of tablet 18:38: (two) [place] [address] times Medical daily. Branch benazepriL 2021-0 Yes 10mg Take 10 mg U nivers 10 mg 3-26 by mouth ity of tablet 18:38: daily. [address] hydroCHLORO 2021-0 Yes 25mg Take 25 mg Univers thiazide 25 3-26 by mouth ity of mg tablet 18:38: daily. [address] carvediloL 2021-0 Yes 25mg Take 25 mg U nivers 25 mg 3-26 by mouth 2 ity of tablet 18:38: (two) [place] [address] times Medical daily with Branch meals. busPIRone 2021-0 Yes 30mg Take 30 mg Un igor 30 mg 3-26 by mouth 2 ity of tablet 18:38: (two) [place] [address] times Medical daily. Branch benazepriL 2021-0 Yes 10mg Take 10 mg U nivers 10 mg 3-26 by mouth ity of tablet 18:38: daily. [address] hydroCHLORO 2021-0 Yes 25mg Take 25 mg Univers thiazide 25 3-26 by mouth ity of mg tablet 18:38: daily. [address] carvediloL 2021-0 Yes 25mg Take 25 mg U nivers 25 mg 3-26 by mouth 2 ity of tablet 18:38: (two) [place] [address] times Medical daily with Branch meals. busPIRone 2021-0 Yes 30mg Take 30 mg Un igor 30 mg 3-26 by mouth 2 ity of tablet 18:38: (two) [place] [address] times Medical daily. Branch benazepriL 2021-0 Yes 10mg Take 10 mg U nivers 10 mg 3-26 by mouth ity of tablet 18:38: daily. [address] hydroCHLORO 2021-0 Yes 25mg Take 25 mg Univers thiazide 25 3-26 by mouth ity of mg tablet 18:38: daily. [address] carvediloL 2021-0 Yes 25mg Take 25 mg U nivers 25 mg 3-26 by mouth 2 ity of tablet 18:38: (two) [place] [address] times Medical daily with Branch meals. busPIRone 2021-0 Yes 30mg Take 30 mg Un igor 30 mg 3-26 by mouth 2 ity of tablet 18:38: (two) [place] 04 times Medical daily. Branch benazepriL 1-0 Yes 10mg Take 10 mg U nivers 10 mg 3-26 by mouth ity of tablet 18:38: daily. [address] hydroCHLORO 2020-0 Yes 25mg Take 25 mg Univers thiazide 25 3-26 by mouth ity of mg tablet 18:38: daily. [address] carvediloL 2020-0 Yes 25mg Take 25 mg U nivers 25 mg 3-26 by mouth 2 ity of tablet 18:38: (two) [place] times Medical daily with Branch meals. busPIRone 1-0 Yes 30mg Take 30 mg Un igor 30 mg 3-26 by mouth 2 ity of tablet 18:38: (two) [place] [address] times Medical daily. Branch benazepriL 2020-0 Yes 10mg Take 10 mg U nivers 10 mg 3-26 by mouth ity of tablet 18:38: daily. [address] hydroCHLORO 2020-0 Yes 25mg Take 25 mg Univers thiazide 25 3-26 by mouth ity of mg tablet 18:38: daily. [address] carvediloL 2020-0 Yes 25mg Take 25 mg U nivers 25 mg 3-26 by mouth 2 ity of tablet 18:38: (two) [place] [address] times Medical daily with Branch meals. busPIRone 1-0 Yes 30mg Take 30 mg Un igor 30 mg 3-26 by mouth 2 ity of tablet 18:38: (two) [place] [address] times Medical daily. Branch benazepriL 1-0 Yes 10mg Take 10 mg U nivers 10 mg 3-26 by mouth ity of tablet 18:38: daily. [address] hydroCHLORO 1-0 Yes 25mg Take 25 mg Univers thiazide 25 3-26 by mouth ity of mg tablet 18:38: daily. [address] carvediloL 2021-0 Yes 25mg Take 25 mg U nivers 25 mg 3-26 by mouth 2 ity of tablet 18:38: (two) [place] [address] times Medical daily with Branch meals. busPIRone 2021-0 Yes 30mg Take 30 mg Un igor 30 mg 3-26 by mouth 2 ity of tablet 18:38: (two) [place] 04 times Medical daily. Branch benazepriL 2021-0 Yes 10mg Take 10 mg U nivers 10 mg 3-26 by mouth ity of tablet 18:38: daily. [address] hydroCHLORO 2021-0 Yes 25mg Take 25 mg Univers thiazide 25 3-26 by mouth ity of mg tablet 18:38: daily. [address] carvediloL 2021-0 Yes 25mg Take 25 [...] by mouth ity of tablet 18:38: daily. [address] hydroCHLORO 2021-0 Yes 25mg Take 25 mg Univers thiazide 25 3-26 by mouth ity of mg tablet 18:38: daily. [address] carvediloL 2021-0 Yes 25mg Take 25 mg U nivers 25 mg 3-26 by mouth 2 ity of tablet 18:38: (two) [place] [address] times Medical daily with Branch meals. busPIRone 2021-0 Yes 30mg Take 30 mg Un igor 30 mg 3-26 by mouth 2 ity of tablet 18:38: (two) [place] 04 times Medical daily. Branch benazepriL 2021-0 Yes 10mg Take 10 mg U nivers 10 mg 3-26 by mouth ity of tablet 18:38: daily. [address] hydroCHLORO 2021-0 Yes 25mg Take 25 mg Univers thiazide 25 3-26 by mouth ity of mg tablet 18:38: daily. [address] carvediloL 2021-0 Yes 25mg Take 25 mg U nivers 25 mg 3-26 by mouth 2 ity of tablet 18:38: (two) [place] [address] times Medical daily with Branch meals. busPIRone 2021-0 Yes 30mg Take 30 mg Un igor 30 mg 3-26 by mouth 2 ity of tablet 18:38: (two) [place] 04 times Medical daily. [place] benazepriL Yes 10mg Take 10 mg U nivers 10 mg - by mouth ity of tablet 18:38: daily. [address] Branch hydroCHLORO Yes 25mg Take 25 mg Univers thiazide 25 -26 by mouth ity of mg tablet 18:38: daily. [address] Branch iohexol 2020- No [id number] 120mL 120 mL, Univers (OMNIPAQUE 12-12 Intravenou it y of 350 17:30: 17:21 s, ONCE, 1 [place] BULK-150 00 :00 dose, Fri Medica l mL) 12/12/20 at Branch injection 1230, 120 mL Routine aspirin 81 2020- No 81mg Take 81 mg Univers mg EC 12-12 by mouth ity of tablet 16:57: 00:00 daily. [place] 40 :00 [facility] Branch varenicline 2020- No 1mg Take 1 mg Univers (CHANTIX) 1 12-12 by mouth 2 i ty of mg tablet 16:57: 00:00 (two) [place] 18 :00 times Medical daily. Branch predniSONE 2020- No 20mg Take 20 mg Univers 20 mg 12-12 by mouth ity of tablet 16:57: 00:00 daily. [place] 12 :00 Medical Branch fluticasone 2020- No 1{puff} Inhale 1 Univers -umeclidin- 12-12 Puff ity of vilanter 16:56: 00:00 daily. [place] (TRELEGY 46 :00 Medical ELLIPTA) Branch 100-62.5-25 mcg DsDv cefpodoxime Yes [id number] 100mg Take 1 Univers 100 mg -26 tablet by ity of tablet 00:00: mouth 2 [place] 00 (two) Medical times [place] daily. cefpodoxime 0 Yes [id number] 100mg Take 1 Univers 100 mg 3-26 tablet by ity of tablet 00:00: mouth 2 [place] 00 (two) Medical times [place] daily. cefpodoxime 0 Yes [id number] 100mg Take 1 Univers 100 mg -26 tablet by ity of tablet 00:00: mouth 2 [place] 00 (two) Medical times Branch daily. cefpodoxime 2021-0 Yes [id number] 100mg Take 1 Univers 100 mg 3-26 tablet by ity of tablet 00:00: mouth [place] (two) Medical times Branch daily. cefpodoxime 2021-0 Yes [id number] 100mg Take 1 Univers 100 mg 3-26 tablet by ity of tablet 00:00: mouth [place] (two) Medical times Branch daily. cefpodoxime 2021-0 Yes [id number] 100mg Take 1 Univers 100 mg 3-26 tablet by ity of tablet 00:00: mouth [place] (two) Medical times Branch daily. cefpodoxime 2021-0 Yes [id number] 100mg Take 1 Univers 100 mg 3-26 tablet by ity of tablet 00:00: mouth [place] ([facility]) Medical times Branch daily. cefpodoxime 2021-0 Yes [id number] 100mg Take 1 Univers 100 mg 3-26 tablet by ity of tablet 00:00: mouth [place] ([facility]) Medical times Branch daily. cefpodoxime 2021-0 Yes [id number] 100mg Take 1 Univers 100 mg 3-26 tablet by ity of tablet 00:00: mouth [place] (two) Medical times Branch daily. cefpodoxime 2021-0 Yes [id number] 100mg Take 1 Univers 100 mg 3-26 tablet by ity of tablet 00:00: mouth [place] (two) Medical times Branch daily. cefpodoxime 2021-0 Yes [id number] 100mg Take 1 Univers 100 mg 3-26 tablet by ity of tablet 00:00: mouth [place] ([facility]) Medical times Branch daily. cefpodoxime 2021-0 Yes [id number] 100mg Take 1 Univers 100 mg 3-26 tablet by ity of tablet 00:00: mouth [place] (two) Medical times Branch daily. cefpodoxime 2021-0 Yes [id number] 100mg Take 1 Univers 100 mg 3-26 tablet by ity of tablet 00:00: mouth [place] ([facility]) Medical times Branch daily. cefpodoxime 2021-0 Yes [id number] 100mg Take 1 Univers 100 mg 3-26 tablet by ity of tablet 00:00: mouth [place] (two) Medical times Branch daily. cefpodoxime 2021-0 Yes [id number] 100mg Take 1 Univers 100 mg - tablet by ity of tablet 00:00: mouth 2 [place] 00 (two) Medical times Branch daily. cefpodoxime 2022- No [id number] 100mg Take 1 Univers 100 mg 3-14 11- tablet by ity of tablet 00:00: 00:00 mouth 2 [place] 00 :00 (two) Medical times Branch daily. cefpodoxime 0 2020- No [id number] 100mg Take 1 Univers 100 mg 3-12 12- tablet by ity of tablet 00:00: 00:00 mouth 2 [place] 00 :00 (two) Medical times Branch daily for 7 days. XARELTO 15 2020-0 Yes Univers mg tablet -28 ity of 00:00: [place] Medical Branch XARELTO 15 2020-0 Yes Univers mg tablet -28 ity of 00:00: [place] Medical Branch XARELTO 15 2020-0 Yes Univers mg tablet -28 ity of 00:00: [place] Medical Branch XARELTO 15 2020-0 Yes Univers mg tablet - ity of 00:00: [place] Medical Branch XARELTO 15 2020-0 Yes Univers mg tablet -28 ity of 00:00: [place] [facility] XARELTO 15 2020-0 Yes Univers mg tablet - ity of 00:00: [place] [facility] Branch XARELTO 15 2020-0 Yes Univers mg tablet -28 ity of 00:00: [place] [facility] Branch XARELTO 15 2020-0 Yes Univers mg tablet -28 ity of 00:00: [place] [facility] Branch XARELTO 15 2020-0 Yes Univers mg tablet -28 ity of 00:00: [place] [facility] Branch XARELTO 15 2020-0 Yes Univers mg tablet -28 ity of 00:00: [place] [facility] XARELTO 15 2020-0 Yes Univers mg tablet -28 ity of 00:00: [place] Medical Branch XARELTO 15 2020-0 Yes Univers mg tablet -28 ity of 00:00: [place] [address] Medical Branch XARELTO 15 2020-0 Yes Univers mg tablet -28 ity of 00:00: [place] Medical Branch XARELTO 15 2020-0 Yes Univers mg tablet 1-28 ity of 00:00: [place] 00 Medical Branch XARELTO 15 2020-0 Yes Univers mg tablet 10-16 ity of 00:00: [place] 00 Medical Branch XARELTO 15 2020-0 Yes Univers mg tablet 10-16 ity of 00:00: [place] 00 Medical Branch XARELTO 15 2020-0 Yes Univers mg tablet 10-16 ity of 00:00: [place] [address] Medical Branch XARELTO 15 2020-0 Yes Univers mg tablet 10-16 ity of 00:00: [place] 00 Medical Branch XARELTO 15 2020-0 Yes Univers mg tablet 10-16 ity of 00:00: [place] [address] Medical Branch XARELTO 15 2020-0 Yes Univers mg tablet 10-16 ity of 00:00: [place] [address] Medical Branch XARELTO 15 2020-0 Yes Univers mg tablet 10-16 ity of 00:00: [place] [address] Medical Branch XARELTO 15 2020-0 Yes [facility] mg tablet 10-16 ity of 00:00: [place] [address] Medical Branch XARELTO 15 2020-0 Yes Univers mg tablet 10-16 ity of 00:00: [place] [address] Medical Branch XARELTO 15 2020-0 3- No Univer s mg tablet 10-1612 ity of 00:00: 00:00 [place] 00 :00 [facility] Branch omeprazole 2018- Yes 40mg Take 40 mg U nivers 40 mg 2-10 by mouth ity of capsule 00:11: daily. [address] omeprazole 2018- Yes 40mg Take 40 mg U nivers 40 mg 2-10 by mouth ity of capsule 00:11: daily. [address] varenicline 2018- Yes 1mg Take 1 mg U nivers (CHANTIX) 1 2-10 by mouth 2 it y of mg tablet 00:11: (two) [place] [address] times Medical daily. Branch predniSONE 2018- Yes 20mg Take 20 mg U nivers 20 mg 2-10 by mouth ity of tablet 00:11: daily. [address] omeprazole 2018- Yes 40mg Take 40 mg U nivers 40 mg 2-10 by mouth ity of capsule 00:11: daily. [address] fluticasone 2018- Yes 1{puff} Inhale 1 Univers -umeclidin- 2-10 Puff ity of vilanter 00:11: daily. [address]) Branch 100-62.5-25 mcg DsDv aspirin 81 2018-09 Yes 81mg Take 81 mg U nivers mg EC 2-10 by mouth ity of tablet 00:11: daily. [address] varenicline 2018-09 Yes 1mg Take 1 mg U nivers (CHANTIX) 1 2-10 by mouth 2 it y of mg tablet 00:11: (two) [address] daily. Branch predniSONE 2018-09 Yes 20mg Take 20 mg U nivers 20 mg 2-10 by mouth ity of tablet 00:11: daily. [address] omeprazole 2018-09 Yes 40mg Take 40 mg U nivers 40 mg 2-10 by mouth ity of capsule 00:11: daily. [address] fluticasone 2018-09 Yes 1{puff} Inhale 1 Univers -umeclidin- 2-10 Puff ity of vilanter 00:11: daily. [address]) Branch 100-62.5-25 mcg DsDv aspirin 81 2018-09 Yes 81mg Take 81 mg U nivers mg EC 2-10 by mouth ity of tablet 00:11: daily. [address] varenicline 2018-09 Yes 1mg Take 1 mg U nivers (CHANTIX) 1 2-10 by mouth 2 it y of mg tablet 00:11: (two) [address] daily. Branch predniSONE 2018-09 Yes 20mg Take 20 mg U nivers 20 mg 2-10 by mouth ity of tablet 00:11: daily. [address] omeprazole 2018-09 Yes 40mg Take 40 mg U nivers 40 mg 2-10 by mouth ity of capsule 00:11: daily. [address] fluticasone 2018-09 Yes 1{puff} Inhale 1 Univers -umeclidin- 2-10 Puff ity of vilanter 00:11: daily. [place] ([address]) Branch 100-62.5-25 mcg DsDv aspirin 81 2018-09 Yes 81mg Take 81 mg U nivers mg EC 2-10 by mouth ity of tablet 00:11: daily. [address] varenicline 2018-09 Yes 1mg Take 1 mg U nivers (CHANTIX) 1 2-10 by mouth 2 it y of mg tablet 00:11: (two) [address] Medical daily. Branch predniSONE 2018-09 Yes 20mg Take 20 mg U nivers 20 mg 2-10 by mouth ity of tablet 00:11: daily. [address] omeprazole 2018-09 Yes 40mg Take 40 mg U nivers 40 mg 2-10 by mouth ity of capsule 00:11: daily. [address] fluticasone 2018-09 Yes 1{puff} Inhale 1 Univers -umeclidin- 2-10 Puff ity of vilanter 00:11: daily. [place] ([address]) Branch 100-62.5-25 mcg DsDv aspirin 81 2018-09 Yes 81mg Take 81 mg U nivers mg EC 2-10 by mouth ity of tablet 00:11: daily. [address] varenicline 2018-09 Yes 1mg Take 1 mg U nivers (CHANTIX) 1 2-10 by mouth 2 it y of mg tablet 00:11: (two) [address] Medical daily. Branch predniSONE 2018-09 Yes 20mg Take 20 mg U nivers 20 mg 2-10 by mouth ity of tablet 00:11: daily. [address] omeprazole 2018-09 Yes 40mg Take 40 mg U nivers 40 mg 2-10 by mouth ity of capsule 00:11: daily. [address] fluticasone 2018-09 Yes 1{puff} Inhale 1 Univers -umeclidin- 2-10 Puff ity of vilanter 00:11: daily. [place] ([address]) Branch 100-62.5-25 mcg DsDv aspirin 81 2018-09 Yes 81mg Take 81 mg U nivers mg EC 2-10 by mouth ity of tablet 00:11: daily. [address] varenicline 2018-09 Yes 1mg Take 1 mg U nivers (CHANTIX) 1 2-10 by mouth 2 it y of mg tablet 00:11: (two) [place] [address] times Medical daily. Branch predniSONE 2018-09 Yes 20mg Take 20 mg U nivers 20 mg 2-10 by mouth ity of tablet 00:11: daily. [address] omeprazole 2018-09 Yes 40mg Take 40 mg U nivers 40 mg 2-10 by mouth ity of capsule 00:11: daily. [address] fluticasone 2019- Yes 1{puff} Inhale 1 Univers -umeclidin- 2-10 Puff ity of vilanter 00:11: daily. [place] ([place] [address] Medical [facility]) Branch 100-62.5-25 mcg DsDv aspirin 81 2018- Yes 81mg Take 81 mg U nivers mg EC 2-10 by mouth ity of tablet 00:11: daily. [address] omeprazole 2018- Yes 40mg Take 40 mg U nivers 40 mg 2-10 by mouth ity of capsule 00:11: daily. [address] omeprazole 2018- Yes 40mg Take 40 mg U nivers 40 mg 2-10 by mouth ity of capsule 00:11: daily. [address] omeprazole 2018- Yes 40mg Take 40 mg U nivers 40 mg 2-10 by mouth ity of capsule 00:11: daily. [address] omeprazole 2018- Yes 40mg Take 40 mg U nivers 40 mg 2-10 by mouth ity of capsule 00:11: daily. [address] omeprazole 2018- Yes 40mg Take 40 mg U nivers 40 mg 2-10 by mouth ity of capsule 00:11: daily. [address] omeprazole 2018- Yes 40mg Take 40 mg U nivers 40 mg 2-10 by mouth ity of capsule 00:11: daily. [address] omeprazole 2018- Yes 40mg Take 40 mg U nivers 40 mg 2-10 by mouth ity of capsule 00:11: daily. [address] omeprazole 2018- Yes 40mg Take 40 mg U nivers 40 mg 2-10 by mouth ity of capsule 00:11: daily. [address] omeprazole 2018- Yes 40mg Take 40 mg U nivers 40 mg 2-10 by mouth ity of capsule 00:11: daily. [address] omeprazole 2018- Yes 40mg Take 40 mg U nivers 40 mg 2-10 by mouth ity of capsule 00:11: daily. [address] omeprazole 2018- Yes 40mg Take 40 mg U nivers 40 mg 2-10 by mouth ity of capsule 00:11: daily. [address] omeprazole 2018-09 Yes 40mg Take 40 mg U nivers 40 mg 2-10 by mouth ity of capsule 00:11: daily. [address] omeprazole 2018-09 Yes 40mg Take 40 mg U nivers 40 mg 2-10 by mouth ity of capsule 00:11: daily. [address] Branch KCL 20 mEq 2018-09 Yes [id number] 40meq Take 2 Univers tablet 2-09 tablets by ity of 00:00: mouth [place] 00 daily. Medical Branch KCL 20 mEq 2018-09 Yes [id number] 40meq Take 2 Univers tablet 2-09 tablets by ity of 00:00: mouth [place] 00 daily. Medical Branch atorvastati 2018-09 Yes [id number] 20mg Take 1 Univers n 20 mg 2-09 tablet by ity of tablet 00:00: mouth at [place] 00 bedtime. Medical Branch metoprolol 2018-09 Yes [id number] 50mg Take 1 [facility] succinate 2-09 tablet by ity o f XL 50 mg 24 00:00: mouth 2 [place] hr tablet 00 (two) Medical times Branch daily. furosemide 2018-09 Yes [id number] 40mg Take 1 [facility] 40 mg 2-09 tablet by ity of tablet 00:00: mouth [place] 00 every Medical morning Branch and evening. KCL 20 mEq 2018-09 Yes [id number] 40meq Take 2 Univers tablet 2-09 tablets by ity of 00:00: mouth [place] 00 daily. Medical Branch atorvastati 2018-09 Yes [id number] 20mg Take 1 Univers n 20 mg 2-09 tablet by ity of tablet 00:00: mouth at [place] 00 bedtime. Medical Branch metoprolol 2018-09 Yes [id number] 50mg Take 1 [facility] succinate 2-09 tablet by ity o f XL 50 mg 24 00:00: mouth 2 [place] hr tablet 00 (two) Medical times Branch daily. furosemide 2018-09 Yes [id number] 40mg Take 1 [facility] 40 mg 2-09 tablet by ity of tablet 00:00: mouth [place] 00 every Medical morning Branch and evening. KCL 20 mEq 2018-09 Yes [id number] 40meq Take 2 Univers tablet 2-09 tablets by ity of 00:00: mouth [place] 00 daily. Medical Branch atorvastati 2018-09 Yes [id number] 20mg Take 1 [facility] n 20 mg 2-09 tablet by ity of tablet 00:00: mouth at [place] 00 bedtime. Medical Branch metoprolol 2018-09 Yes [id number] 50mg Take 1 [facility] succinate 2-09 tablet by ity o f XL 50 mg 24 00:00: mouth 2 [place] hr tablet 00 (two) Medical times Branch daily. furosemide 2018-09 Yes [id number] 40mg Take 1 [facility] 40 mg 2-09 tablet by ity of tablet 00:00: mouth [place] 00 every Medical morning Branch and evening. KCL 20 mEq 2018-09 Yes [id number] 40meq Take 2 Univers tablet 2-09 tablets by ity of 00:00: mouth [place] 00 daily. Medical Branch atorvastati 2018-09 Yes [id number] 20mg Take 1 [facility] n 20 mg 2-09 tablet by ity of tablet 00:00: mouth at [place] 00 bedtime. Medical Branch metoprolol 2018-09 Yes [id number] 50mg Take 1 [facility] succinate 2-09 tablet by ity o f XL 50 mg 24 00:00: mouth 2 [place] hr tablet 00 (two) Medical times Branch daily. furosemide 2018-09 Yes [id number] 40mg Take 1 [facility] 40 mg 2-09 tablet by ity of tablet 00:00: mouth [place] 00 every Medical morning Branch and evening. KCL 20 mEq 2018-09 Yes [id number] 40meq Take 2 Univers tablet 2-09 tablets by ity of 00:00: mouth [place] 00 daily. Medical Branch atorvastati 2018-09 Yes [id number] 20mg Take 1 [facility] n 20 mg 2-09 tablet by ity of tablet 00:00: mouth at [place] 00 bedtime. Medical Branch metoprolol 2018-09 Yes [id number] 50mg Take 1 [facility] succinate 2-09 tablet by ity o f XL 50 mg 24 00:00: mouth 2 [place] hr tablet 00 (two) Medical times Branch daily. furosemide 2018-09 Yes [id number] 40mg Take 1 [facility] 40 mg 2-09 tablet by ity of tablet 00:00: mouth [place] 00 every Medical morning Branch and evening. KCL 20 mEq 2018-09 Yes [id number] 40meq Take 2 Univers tablet 2-09 tablets by ity of 00:00: mouth [place] 00 daily. Medical Branch atorvastati 2018-09 Yes [id number] 20mg Take 1 Univers n 20 mg 2-09 tablet by ity of tablet 00:00: mouth at [place] 00 bedtime. Medical Branch metoprolol 2018-09 Yes [id number] 50mg Take 1 [facility] succinate 2-09 tablet by ity o f XL 50 mg 24 00:00: mouth 2 [place] hr tablet 00 (two) Medical times Branch daily. furosemide 2018-09 Yes [id number] 40mg Take 1 [facility] 40 mg 2-09 tablet by ity of tablet 00:00: mouth [place] 00 every Medical morning Branch and evening. KCL 20 mEq 2018-09 Yes [id number] 40meq Take 2 Univers tablet 2-09 tablets by ity of 00:00: mouth [place] 00 daily. Medical Branch KCL 20 mEq 2018-09 Yes [id number] 40meq Take 2 Univers tablet 2-09 tablets by ity of 00:00: mouth [place] 00 daily. Medical Branch KCL 20 mEq 2018-09 Yes [id number] 40meq Take 2 Univers tablet 2-09 tablets by ity of 00:00: mouth [place] 00 daily. Medical Branch KCL 20 mEq 2018-09 Yes [id number] 40meq Take 2 [facility] tablet 2-09 tablets by ity of 00:00: mouth [place] 00 daily. Medical Branch KCL 20 mEq 2018-09 Yes [id number] 40meq Take 2 Univers tablet 2-09 tablets by ity of 00:00: mouth [place] 00 daily. Medical Branch KCL 20 mEq 2018-09 Yes [id number] 40meq Take 2 Univers tablet 2-09 tablets by ity of 00:00: mouth [place] 00 daily. Medical Branch KCL 20 mEq 2018-09 Yes [id number] 40meq Take 2 Univers tablet 2-09 tablets by ity of 00:00: mouth [place] 00 daily. Medical Branch KCL 20 mEq 2018-09 Yes [id number] 40meq Take 2 Univers tablet 2-09 tablets by ity of 00:00: mouth [place] 00 daily. Medical Branch KCL 20 mEq 2018-09 Yes [id number] 40meq Take 2 Univers tablet 2-09 tablets by ity of 00:00: mouth [place] 00 daily. Medical Branch KCL 20 mEq 2018-09 Yes [id number] 40meq Take 2 Univers tablet 2-09 tablets by ity of 00:00: mouth [place] 00 daily. Medical Branch KCL 20 mEq 2018-09 Yes [id number] 40meq Take 2 Univers tablet 2-09 tablets by ity of 00:00: mouth [place] 00 daily. Medical Branch KCL 20 mEq 2018-09 Yes [id number] 40meq Take 2 Univers tablet 2-09 tablets by ity of 00:00: mouth [place] 00 daily. Medical Branch KCL 20 mEq 2018-09 Yes [id number] 40meq Take 2 Univers tablet 2-09 tablets by ity of 00:00: mouth [place] 00 daily. Medical Branch KCL 20 mEq 2018-09 Yes [id number] 40meq Take 2 Univers tablet 2-09 tablets by ity of 00:00: mouth [place] 00 daily. Medical Branch KCL 20 mEq 2018-09 Yes [id number] 40meq Take 2 Univers tablet 2-09 tablets by ity of 00:00: mouth [place] 00 daily. Medical Branch KCL 20 mEq 2018-09 Yes [id number] 40meq Take 2 Univers tablet 2-09 tablets by ity of 00:00: mouth [place] 00 daily. Medical Branch KCL 20 mEq 2018-09 Yes [id number] 40meq Take 2 Univers tablet 2-09 tablets by ity of 00:00: mouth [place] 00 daily. Medical Branch KCL 20 mEq 2018-09 Yes [id number] 40meq Take 2 Univers tablet 2-09 tablets by ity of 00:00: mouth [place] 00 daily. Medical Branch KCL 20 mEq 2018-09 Yes [id number] 40meq Take 2 Univers tablet 2-09 tablets by ity of 00:00: mouth [place] 00 daily. Medical Branch KCL 20 mEq 2018-09- No [id number] 40meq Take 2 Univers tablet 2-05 22-12 tablets by ity of 00:00: 00:00 mouth [place] 00 :00 daily. Medical Branch atorvastati 2018-09- No [id number] 20mg Take 1 Univers n 20 mg 10-28 tablet by ity of tablet 00:00: 00:00 mouth at [place] 00 :00 bedtime. Medical Branch metoprolol 2018-09- No [id number] 50mg Take 1 [facility] succinate 10-28- tablet by ity of XL 50 mg 24 00:00: 00:00 mouth 2 [place] hr tablet 00 :00 (two) Medical times Branch daily. furosemide 2018-09- No [id number] 40mg Take 1 Univers 40 mg 2-09 [...] Until mL Discontinu ed, Routine ibuprofen Yes [id number] 600mg Take 1 U nivers 600 mg 5-31 tablet by ity of tablet 00:00: mouth [place] 00 every 8 Medical (eight) Branch hours as needed (PAIN). ibuprofen Yes [id number] 600mg Take 1 U nivers 600 mg 5-31 tablet by ity of tablet 00:00: mouth [place] 00 every 8 Medical (eight) Branch hours as needed (pain). ibuprofen 2019- No [id number] 600mg Take 1 Univers 600 mg 5-31 08-15 tablet by ity of tablet 00:00: 00:00 mouth [place] 00 :00 every 8 Medical (eight) Branch hours as needed (PAIN). ibuprofen 2019- No [id number] 600mg Take 1 Univers 600 mg 5-31 08-15 tablet by ity of tablet 00:00: 00:00 mouth [place] 00 :00 every 8 Medical (eight) Branch hours as needed (pain). magnesium Yes 400mg Take 1 Tab U nivers oxide 2-23 by mouth 3 ity of (MAG-OX 00:00: (three) [place] 400) 400 mg 00 times Medical tablet daily. Branch enalapril Yes [id number] 2.5mg Take 1 Tab Univers (VASOTEC) 2-23 [...] s tablet 00 Medical Branch furosemide Yes [id number] 40mg Take 1 Tab Univers (LASIX) 40 [...] Medical tablet daily. Branch enalapril 2018- No [id number] 2.5mg Take 1 Tab Univers (VASOTEC) 2- [...] 00 :00 Medical Branch furosemide 2019- No [id number] 40mg Take 1 Tab Univers (LASIX) 40 [...] by mouth ity of tablet 00:00: daily. [place] 00 Medical Branch ipratropium 2013-09 Yes .5mg Inhale 2.5 Univers (ATROVENT) 2-17 mL 4 ity of 0.02 % 00:00: (four) [place] nebulizer 00 times Medical solution daily. Branch [...] by mouth ity of tablet 00:00: daily. [place] Medical Branch ipratropium 2013-09 Yes .5mg Inhale [...] by mouth ity of tablet 00:00: daily. [place] [facility] Branch ipratropium 2013-09 Yes .5mg Inhale [...] by mouth ity of tablet 00:00: daily. [place] [facility] Branch ipratropium 2013-09 Yes .5mg Inhale [...] by mouth ity of tablet 00:00: daily. [place] [facility] ipratropium 2013-09 Yes .5mg Inhale [...] by mouth ity of tablet 00:00: daily. [place] [facility] ipratropium 2013-09 Yes .5mg Inhale [...] by mouth ity of tablet 00:00: daily. [place] [facility] ipratropium 2013-09 Yes .5mg Inhale [...] by mouth ity of tablet 00:00: daily. [place] [facility] ipratropium 2013-09 Yes .5mg Inhale [...] by mouth ity of tablet 00:00: daily. [place] [facility] ipratropium 2013-09 Yes .5mg Inhale [...] by mouth ity of tablet 00:00: daily. [place] [facility] ipratropium 2013-09 Yes .5mg Inhale [...] by mouth ity of tablet 00:00: daily. [place] [facility] ipratropium 2013-09 Yes .5mg Inhale [...] by mouth ity of tablet 00:00: daily. [place] [facility] ipratropium 2013-09 Yes .5mg Inhale [...] by mouth ity of tablet 00:00: daily. [place] [facility] ipratropium 2013-09 Yes .5mg Inhale [...] by mouth ity of tablet 00:00: daily. [place] [facility] ipratropium 2013-09 Yes .5mg Inhale [...] by mouth ity of tablet 00:00: daily. [place] [facility] ipratropium 2013-09 Yes .5mg Inhale [...] by mouth ity of tablet 00:00: daily. [place] [facility] ipratropium 2013-09 Yes .5mg Inhale [...] by mouth ity of tablet 00:00: daily. [place] [facility] ipratropium 2013-09 Yes .5mg Inhale [...] by mouth ity of tablet 00:00: daily. [place] [facility] ipratropium 2013-09 Yes .5mg Inhale [...] by mouth ity of tablet 00:00: daily. [place] [facility] ipratropium 2013-09 Yes .5mg Inhale [...] by mouth ity of tablet 00:00: daily. [place] [facility] ipratropium 2013-09 Yes .5mg Inhale [...] by mouth ity of tablet 00:00: daily. [place] [facility] ipratropium 2013-09 Yes .5mg Inhale [...] by mouth ity of tablet 00:00: daily. [place] [facility] ipratropium 2013-09 Yes .5mg Inhale [...] by mouth ity of tablet 00:00: daily. [place] [facility] ipratropium 2013-09 Yes .5mg Inhale [...] mouth ity of tablet 00:00: 00:00 daily. [place] 00 : Medical Branch ipratropium 2013-09- No [...] Immunizations Ordered Filled Immunization Date Status Comments [facility] e Immunization Name Name Pneumococcal 20 [...] Universit y of Conjugate, PCV20 00:00:00 [place] [facility] (Prevnar 20) Branch Pneumococcal 20 2022-12-12 [...] Universit y of Conjugate, PCV20 00:00:00 [place] [facility] (Prevnar 20) Branch Pneumococcal 20 2022-12-12 Completed Universit y of Conjugate, PCV20 00:00:00 [place] [facility] (Prevnar 20) Branch Pneumococcal 20 2022-12-12 Completed Universit y of Conjugate, PCV20 00:00:00 [place] [facility] (Prevnar 20) Branch Pneumococcal 20 2022-12-12 [...] Universit y of Conjugate, PCV20 00:00:00 [place] [facility] (Prevnar 20) Branch Pneumococcal 20 2022-12-12 Completed Universit y of Conjugate, PCV20 00:00:00 [place] [facility] (Prevnar 20) Branch Pneumococcal 20 2022-12-12 Completed Universit y of Conjugate, PCV20 00:00:00 [place] [facility] (Prevnar 20) Branch Pneumococcal 20 2022-12-12 Completed Universit y of Conjugate, PCV20 00:00:00 [place] [facility] (Prevnar 20) Branch Pneumococcal 20 2022-12-12 Completed Universit y of Conjugate, PCV20 00:00:00 [place] [facility] (Prevnar 20) Branch Pneumococcal 20 2022-12-12 Completed Universit y of Conjugate, PCV20 00:00:00 [place] [facility] (Prevnar 20) Branch Pneumococcal 20 2022-12-12 Completed Universit y of Conjugate, PCV20 00:00:00 [place] [facility]ical (Prevnar 20) Branch Pneumococcal 20 2022-12-12 Completed Universit y of Conjugate, PCV20 00:00:00 [place] [facility] dical (Prevnar 20) Branch Pneumococcal 20 2022-12-12 Completed Universit y of Conjugate, PCV20 00:00:00 [place] Me dical (Prevnar 20) Branch Pneumococcal 20 2022-12-12 Completed Universit y of Conjugate, PCV20 00:00:00 [place] [facility] (Prevnar 20) Branch Pneumococcal 20 2022-12-12 Completed Universit y of Conjugate, PCV20 00:00:00 [place] [facility] (Prevnar 20) Branch Pneumococcal 20 2022-12-12 Completed Universit y of Conjugate, PCV20 00:00:00 [facility] dical (Prevnar 20) Branch Pneumococcal 20 2022-12-12 Completed Universit y of Conjugate, PCV20 00:00:00 [facility] dical (Prevnar 20) Branch Pneumococcal 20 2022-12-12 Completed Universit y of Conjugate, PCV20 00:00:00 [facility] dical (Prevnar 20) Branch Pneumococcal 20 2022-12-12 Completed Universit y of Conjugate, PCV20 00:00:00 [facility] dical (Prevnar 20) Branch Pneumococcal 20 2022-12-12 Completed Universit y of Conjugate, PCV20 00:00:00 [facility] dical (Prevnar 20) Branch SARS-COV-2 COVID-19 2020-11-23 [...] Unive rsity of MODERNA 12+ YRS 00:00:00 [facility] ical VACCINE Branch SARS-COV-2 COVID-19 2020-10-26 Completed Unive rsity of MODERNA VACCINE 00:00:00 [facility] ical Branch SARS-COV-2 COVID-19 2020-10-26 Completed Unive rsity of MODERNA 12+ YRS 00:00:00 [facility] ical VACCINE Branch SARS-COV-2 COVID-19 2020-10-26 Completed Unive rsity of MODERNA 12+ YRS 00:00:00 [facility] ical VACCINE Branch SARS-COV-2 COVID-19 2020-10-26 Completed Unive rsity of MODERNA 12+ YRS 00:00:00 [facility] ical VACCINE Branch Td 2019-02-16 Completed University of 00:00:00 [facility] TD, NOS 2019-02-16 Completed University of 00:00:00 [facility] TD, NOS 2019-02-16 Completed University of 00:00:00 [facility] TD, NOS 2019-02-16 Completed University of 00:00:00 [facility] TD, NOS 2019-02-16 Completed University of 00:00:00 [facility] TD, NOS 2019-02-16 Completed University of 00:00:00 [facility] Td 2019-02-16 Completed University of 00:00:00 [facility] TD, NOS 2019-02-16 Completed University [...] TD, NOS 2019-02-16 Completed University of 00:00:00 [facility] TD, NOS 2019-02-16 Completed University of 00:00:00 [facility] Td 2019-02-16 Completed University of 00:00:00 [facility] TD, NOS 2019-02-16 Completed University of 00:00:00 [facility] TD, NOS 2019-02-16 Completed University of 00:00:00 [facility] TD, NOS 2019-02-16 Completed University of 00:00:00 [facility] Pneumococcal 2014-09-05 Completed University o f Polysaccharide, 00:00:00 [place] Med ical PPSV23 (PNEUMOVAX) Branch Influenza Virus 2014-09-05 Completed Universit y of Vaccine Quad IM 3+ 00:00:00 [facility] Pneumococcal 2014-09-05 Completed University o f Polysaccharide, 00:00:00 [place] Med ical PPSV23 (PNEUMOVAX) Branch Influenza Virus 2014-09-05 Completed Universit y of Vaccine Quad IM 3+ 00:00:00 [facility] Pneumococcal 2014-09-05 Completed University o f Polysaccharide, 00:00:00 [place] Med ical PPSV23 (PNEUMOVAX) Branch Influenza Virus 2014-09-05 Completed Universit y of Vaccine Quad IM 3+ 00:00:00 [facility] Pneumococcal 2014-09-05 Completed University o f Polysaccharide, 00:00:00 [place] Med ical PPSV23 (PNEUMOVAX) Branch Influenza Virus 2014-09-05 Completed Universit y of Vaccine Quad IM 3+ 00:00:00 [facility] Pneumococcal 2014-09-05 Completed University o f Polysaccharide, 00:00:00 [place] Med ical PPSV23 (PNEUMOVAX) Branch Influenza Virus 2014-09-05 Completed Universit y of Vaccine Quad IM 3+ 00:00:00 [facility] Pneumococcal 2014-09-05 Completed University o f Polysaccharide, 00:00:00 [place] Med ical PPSV23 (PNEUMOVAX) Branch Influenza Virus 2014-09-05 Completed Universit y of Vaccine Quad IM 3+ 00:00:00 [facility] Pneumococcal 2014-09-05 Completed University o f Polysaccharide, 00:00:00 [place] Med ical PPSV23 (PNEUMOVAX) Branch Influenza Virus 2014-09-05 Completed Universit y of Vaccine Quad IM 3+ 00:00:00 [facility] Pneumococcal 2014-09-05 Completed University o f Polysaccharide, 00:00:00 [place] Med ical PPSV23 (PNEUMOVAX) Branch Influenza Virus 2014-09-05 Completed Universit y of Vaccine Quad IM 3+ 00:00:00 [facility] Pneumococcal 2014-09-05 Completed University o f Polysaccharide, 00:00:00 [place] Med ical PPSV23 (PNEUMOVAX) Branch Influenza Virus 2014-09-05 Completed Universit y of Vaccine Quad IM 3+ 00:00:00 [facility] Pneumococcal 2014-09-05 Completed University o f Polysaccharide, 00:00:00 [place] Med ical PPSV23 (PNEUMOVAX) Branch Influenza Virus 2014-09-05 Completed Universit y of Vaccine Quad IM 3+ 00:00:00 [facility] Pneumococcal 2014-09-05 Completed University o f Polysaccharide, 00:00:00 [place] Med ical PPSV23 (PNEUMOVAX) Branch Influenza Virus 2014-09-05 Completed Universit y of Vaccine Quad IM 3+ 00:00:00 [facility] Pneumococcal 2014-09-05 Completed University o f Polysaccharide, 00:00:00 [place] Med ical PPSV23 (PNEUMOVAX) Branch Influenza Virus 2014-09-05 Completed Universit y of Vaccine Quad IM 3+ 00:00:00 [facility] Pneumococcal 2014-09-05 Completed University o f Polysaccharide, 00:00:00 [place] Med ical PPSV23 (PNEUMOVAX) Branch Influenza Virus 2014-09-05 Completed Universit y of Vaccine Quad IM 3+ 00:00:00 [facility] Influenza Virus 2014-09-05 Completed Universit y of Vaccine Quad IM 3+ 00:00:00 [facility] Pneumococcal 2014-09-05 Completed University o f Polysaccharide, 00:00:00 [place] Med ical PPSV23 (PNEUMOVAX) Branch Pneumococcal 2014-09-05 Completed University o f Polysaccharide, 00:00:00 [place] Med ical PPSV23 (PNEUMOVAX) Branch Influenza Virus 2014-09-05 Completed Universit y of Vaccine Quad IM 3+ 00:00:00 [facility] Pneumococcal 2014-09-05 Completed University o f Polysaccharide, 00:00:00 [place] [facility] PPSV23 (PNEUMOVAX) [facility] Influenza Virus 2014-09-05 Completed [facility] Vaccine Quad IM 3+ 00:00:00 [facility] Pneumococcal 2014-09-05 Completed [facility] o f Polysaccharide, 00:00:00 [place] [facility] PPSV23 (PNEUMOVAX) Branch Influenza Virus 2014-09-05 Completed [facility] Vaccine Quad IM 3+ 00:00:00 [facility] Pneumococcal 2014-09-05 Completed [facility] o f Polysaccharide, 00:00:00 [place] [facility] PPSV23 (PNEUMOVAX) Branch Influenza Virus 2014-09-05 Completed [facility] of Vaccine Quad IM 3+ 00:00:00 [facility] Pneumococcal 2014-09-05 Completed [facility] o f Polysaccharide, 00:00:00 [place] [facility] PPSV23 (PNEUMOVAX) Branch Influenza Virus 2014-09-05 Completed [facility] of Vaccine Quad IM 3+ 00:00:00 [facility] Pneumococcal 2014-09-05 Completed [facility] o f Polysaccharide, 00:00:00 [place] [facility] PPSV23 (PNEUMOVAX) Branch Influenza Virus 2014-09-05 Completed [facility] Vaccine Quad IM 3+ 00:00:00 [facility] Pneumococcal 2014-09-05 Completed [facility] o f Polysaccharide, 00:00:00 [place] [facility] PPSV23 (PNEUMOVAX) Branch Influenza Virus 2014-09-05 Completed [facility] Vaccine Quad IM 3+ 00:00:00 [facility] Pneumococcal 2014-09-05 Completed [facility] o f Polysaccharide, 00:00:00 [place] [facility] PPSV23 (PNEUMOVAX) Branch Influenza Virus 2014-09-05 Completed [facility] Vaccine Quad IM 3+ 00:00:00 [facility] Pneumococcal 2014-09-05 Completed [facility] o f Polysaccharide, 00:00:00 [place] [facility] PPSV23 (PNEUMOVAX) Branch Influenza Virus 2014-09-05 Completed [facility] of Vaccine Quad IM 3+ 00:00:00 [facility] Pneumococcal 2014-09-05 Completed [facility] o f Polysaccharide, 00:00:00 [place] [facility] PPSV23 (PNEUMOVAX) Branch Influenza Virus 2014-09-05 Completed [facility] Vaccine Quad IM 3+ 00:00:00 [facility] Pneumococcal 2014-09-05 Completed [facility] o f Polysaccharide, 00:00:00 [place] [facility] PPSV23 (PNEUMOVAX) Branch Influenza Virus 2014-09-05 Completed [facility] Vaccine Quad IM 3+ 00:00:00 [facility] Pneumococcal 2014-09-05 Completed [facility] o f Polysaccharide, 00:00:00 [place] [facility] PPSV23 (PNEUMOVAX) Branch Influenza Virus 2014-09-05 Completed [facility] Vaccine Quad IM 3+ 00:00:00 [facility] Pneumococcal 2014-09-05 Completed [facility] o f Polysaccharide, 00:00:00 [place] [facility] PPSV23 (PNEUMOVAX) Branch Influenza Virus 2014-09-05 Completed [facility] Vaccine Quad IM 3+ 00:00:00 [facility] Pneumococcal 2014-09-05 Completed [facility] f Polysaccharide, 00:00:00 [place] [facility] PPSV23 (PNEUMOVAX) Branch Influenza Virus 2014-09-05 Completed [facility] Vaccine Quad IM 3+ 00:00:00 [facility] Pneumococcal 2014-09-05 Completed [facility] o f Polysaccharide, 00:00:00 [place] [facility] PPSV23 (PNEUMOVAX) Branch Influenza Virus 2014-09-05 Completed [facility] Vaccine Quad IM 3+ 00:00:00 [facility] Pneumococcal 2014-09-05 Completed [facility] o f Polysaccharide, 00:00:00 [place] [facility] PPSV23 (PNEUMOVAX) Branch Influenza Virus 2014-09-05 Completed [facility] Vaccine Quad IM 3+ 00:00:00 [facility] Pneumococcal 2014-09-05 Completed [facility] o f Polysaccharide, 00:00:00 [place] [facility] PPSV23 (PNEUMOVAX) Branch Influenza Virus 2014-09-05 Completed [facility] Vaccine Quad IM 3+ 00:00:00 [facility] Influenza Virus 2014-09-05 Completed [facility] Vaccine Quad IM 3+ 00:00:00 [facility] Pneumococcal 2014-09-05 Completed [facility] o f Polysaccharide, 00:00:00 [place] [facility] PPSV23 (PNEUMOVAX) Branch Pneumococcal 2014-09-05 Completed [facility] f Polysaccharide, 00:00:00 [place] [facility] PPSV23 (PNEUMOVAX) Branch Influenza Virus 2014-09-05 Completed [facility] Vaccine Quad IM 3+ 00:00:00 [facility] Pneumococcal 2014-09-05 Completed [facility] o f Polysaccharide, 00:00:00 [place] [facility] PPSV23 (PNEUMOVAX) Branch Influenza Virus 2014-09-05 Completed [facility] Vaccine Quad IM 3+ 00:00:00 [facility] Pneumococcal 2014-09-05 Completed [facility] o f Polysaccharide, 00:00:00 [place] [facility] PPSV23 (PNEUMOVAX) Branch Influenza Virus 2014-09-05 Completed [facility] Vaccine Quad IM 3+ 00:00:00 [facility] Pneumococcal 2014-09-05 Completed [facility] o f Polysaccharide, 00:00:00 [place] [facility] PPSV23 (PNEUMOVAX) Branch Influenza Virus 2014-09-05 Completed [facility] Vaccine Quad IM 3+ 00:00:00 [facility] Pneumococcal 2014-09-05 Completed [facility] o f Polysaccharide, 00:00:00 [place] [facility] PPSV23 (PNEUMOVAX) Branch Influenza Virus 2014-09-05 Completed [facility] Vaccine Quad IM 3+ 00:00:00 [facility] Pneumococcal 2014-09-05 Completed [facility] o f Polysaccharide, 00:00:00 [place] [facility] PPSV23 (PNEUMOVAX) Branch Influenza Virus 2014-09-05 Completed [facility] Vaccine Quad IM 3+ 00:00:00 [facility] Pneumococcal 2014-09-05 Completed [facility] o f Polysaccharide, 00:00:00 [place] [facility] PPSV23 (PNEUMOVAX) Branch Influenza Virus 2014-09-05 Completed [facility] Vaccine Quad IM 3+ 00:00:00 [facility] Pneumococcal 2014-09-05 Completed [facility] o f Polysaccharide, 00:00:00 [place] [facility] PPSV23 (PNEUMOVAX) Branch Influenza Virus 2014-09-05 Completed [facility] Vaccine Quad IM 3+ 00:00:00 [facility] Pneumococcal 2014-09-05 Completed [facility] o f Polysaccharide, 00:00:00 [place] [facility] PPSV23 (PNEUMOVAX) Branch Influenza Virus 2014-09-05 Completed [facility] Vaccine Quad IM 3+ 00:00:00 [facility] Pneumococcal 2014-09-05 Completed [facility] o f Polysaccharide, 00:00:00 [place] [facility] PPSV23 (PNEUMOVAX) Branch Influenza Virus 2014-09-05 Completed [facility] Vaccine Quad IM 3+ 00:00:00 [facility] Pneumococcal 2014-09-05 Completed [facility] f Polysaccharide, 00:00:00 [place] [facility] PPSV23 (PNEUMOVAX) Branch Influenza Virus 2014-09-05 Completed [facility] Vaccine Quad IM 3+ 00:00:00 [facility] Pneumococcal 2014-09-05 Completed [facility] o f Polysaccharide, 00:00:00 [place] [facility] PPSV23 (PNEUMOVAX) Branch Influenza Virus 2014-09-05 Completed [facility] Vaccine Quad IM 3+ 00:00:00 [facility] Pneumococcal 2014-09-05 Completed [facility] o f Polysaccharide, 00:00:00 [place] [facility] PPSV23 (PNEUMOVAX) Branch Influenza Virus 2014-09-05 Completed [facility] Vaccine Quad IM 3+ 00:00:00 [facility] Pneumococcal 2014-09-05 Completed [facility] o f Polysaccharide, 00:00:00 [place] [facility] PPSV23 (PNEUMOVAX) Branch Influenza Virus 2014-09-05 Completed [facility] Vaccine Quad IM 3+ 00:00:00 [facility] Pneumococcal 2014-09-05 Completed [facility] o f Polysaccharide, 00:00:00 [place] [facility] PPSV23 (PNEUMOVAX) Branch Influenza Virus 2014-09-05 Completed [facility] Vaccine Quad IM 3+ 00:00:00 [facility] Pneumococcal 2014-09-05 Completed [facility] o f Polysaccharide, 00:00:00 [place] [facility] PPSV23 (PNEUMOVAX) Branch Influenza Virus 2014-09-05 Completed [facility] Vaccine Quad IM 3+ 00:00:00 [facility] Pneumococcal 2014-09-05 Completed [facility] o f Polysaccharide, 00:00:00 [place] [facility] PPSV23 (PNEUMOVAX) Branch Influenza Virus 2014-09-05 Completed [facility] Vaccine Quad IM 3+ 00:00:00 [facility] Pneumococcal 2014-09-05 Completed [facility] o f Polysaccharide, 00:00:00 [place] [facility] PPSV23 (PNEUMOVAX) Branch Influenza Virus 2014-09-05 Completed [facility] Vaccine Quad IM 3+ 00:00:00 [facility] Pneumococcal 2014-09-05 Completed [facility] o f Polysaccharide, 00:00:00 [place] [facility] PPSV23 (PNEUMOVAX) Branch Influenza Virus 2014-09-05 Completed [facility] Vaccine Quad IM 3+ 00:00:00 [facility] Pneumococcal 2014-09-05 Completed [facility] o f Polysaccharide, 00:00:00 [place] [facility] PPSV23 (PNEUMOVAX) Branch Influenza Virus 2014-09-05 Completed [facility] Vaccine Quad IM 3+ 00:00:00 [facility] Pneumococcal 2014-09-05 Completed [facility] o f Polysaccharide, 00:00:00 [place] [facility] PPSV23 (PNEUMOVAX) Branch Influenza Virus 2014-09-05 Completed [facility] Vaccine Quad IM 3+ 00:00:00 [facility] Pneumococcal 2014-09-05 Completed [facility] o f Polysaccharide, 00:00:00 [place] [facility] PPSV23 (PNEUMOVAX) Branch Influenza Virus 2014-09-05 Completed [facility] Vaccine Quad IM 3+ 00:00:00 [facility] Pneumococcal 2014-09-05 Completed [facility] o f Polysaccharide, 00:00:00 [place] [facility] PPSV23 (PNEUMOVAX) Branch Influenza Virus 2014-09-05 Completed [facility] of Vaccine Quad IM 3+ 00:00:00 [facility] Pneumococcal 2014-09-05 Completed [facility] o f Polysaccharide, 00:00:00 [place] [facility] PPSV23 (PNEUMOVAX) Branch Influenza Virus 2014-09-05 Completed [facility] Vaccine Quad IM 3+ 00:00:00 [facility] Pneumococcal 2014-09-05 Completed [facility] o f Polysaccharide, 00:00:00 [place] [facility] PPSV23 (PNEUMOVAX) Branch Influenza Virus 2014-09-05 Completed [facility] of Vaccine Quad IM 3+ 00:00:00 [facility] Pneumococcal 2014-09-05 Completed [facility] o f Polysaccharide, 00:00:00 [place] [facility] PPSV23 (PNEUMOVAX) Branch Influenza Virus 2014-09-05 Completed [facility] of Vaccine Quad IM 3+ 00:00:00 [facility] Pneumococcal 2014-09-05 Completed [facility] o f Polysaccharide, 00:00:00 [place] [facility] PPSV23 (PNEUMOVAX) Branch Influenza Virus 2014-09-05 Completed [facility] of Vaccine Quad IM 3+ 00:00:00 [facility] Pneumococcal 2014-09-05 Completed [facility] o f Polysaccharide, 00:00:00 [place] [facility] PPSV23 (PNEUMOVAX) Branch Influenza Virus 2014-09-05 Completed [facility] of Vaccine Quad IM 3+ 00:00:00 [facility] Pneumococcal 2014-09-05 Completed [facility] o f Polysaccharide, 00:00:00 [place] [facility] PPSV23 (PNEUMOVAX) Branch Influenza Virus 2014-09-05 Completed [facility] of Vaccine Quad IM 3+ 00:00:00 [facility] Pneumococcal 2014-09-05 Completed [facility] o f Polysaccharide, 00:00:00 [place] [facility] PPSV23 (PNEUMOVAX) Branch Influenza Virus 2014-09-05 Completed [facility] of Vaccine Quad IM 3+ 00:00:00 [facility] Pneumococcal 2014-09-05 Completed [facility] o f Polysaccharide, 00:00:00 [place] [facility] PPSV23 (PNEUMOVAX) Branch Influenza Virus 2014-09-05 Completed [facility] of Vaccine Quad IM 3+ 00:00:00 [facility] Influenza Virus 2014-09-05 Completed [facility] of Vaccine Quad IM 3+ 00:00:00 [facility] Pneumococcal 2014-09-05 Completed [facility] o f Polysaccharide, 00:00:00 [place] [facility] PPSV23 (PNEUMOVAX) Branch Pneumococcal 2014-09-05 Completed [facility] o f Polysaccharide, 00:00:00 [place] [facility] PPSV23 (PNEUMOVAX) Branch Influenza Virus 2014-09-05 Completed [facility] of Vaccine Quad IM 3+ 00:00:00 [facility] Pneumococcal 2014-09-05 Completed [facility] o f Polysaccharide, 00:00:00 [place] [facility] PPSV23 (PNEUMOVAX) Branch Influenza Virus 2014-09-05 Completed [facility] of Vaccine Quad IM 3+ 00:00:00 [facility] Pneumococcal 2014-09-05 Completed [facility] o f Polysaccharide, 00:00:00 [place] [facility] PPSV23 (PNEUMOVAX) Branch Influenza Virus 2014-09-05 Completed [facility] of Vaccine Quad IM 3+ 00:00:00 [facility] Pneumococcal 2014-09-05 Completed [facility] o f Polysaccharide, 00:00:00 [place] [facility] PPSV23 (PNEUMOVAX) Branch Influenza Virus 2014-09-05 Completed [facility] of Vaccine Quad IM 3+ 00:00:00 [facility] Vital Signs Vital Name Observation Time Observation Value Comments Source Systolic blood 2023-03-01 143 mm[Hg] University of pressure 20:27:00 [facility] Diastolic blood 2023-03-01 87 mm[Hg] University o f pressure 20:27:00 [facility] Heart rate 2023-03-01 99 /min University 20:27:00 [facility] Body height 2023-03-01 177.8 cm University of 20:27:00 [facility] Body weight 2023-03-01 57.153 kg University of 20:27:00 [facility] BMI 2023-03-01 18.08 kg/m2 University of 20:27:00 [facility] Oxygen saturation 2023-03-01 99 /min University of in Arterial blood 20:27:00 [facility] by Pulse oximetry Branch Systolic blood 2023-02-18 144 mm[Hg] University of pressure 16:17:00 [facility] Diastolic blood 2023-02-18 68 mm[Hg] University o f pressure 16:17:00 [facility] Heart rate 2023-02-18 55 /min University of 16:17:00 [facility] Body temperature 2023-02-18 36.06 Tia University of 16:17:00 [facility] Respiratory rate 2023-02-18 18 /min University of 16:17:00 [facility] Oxygen saturation 2023-02-18 100 /min University in Arterial blood 16:17:00 [facility] by Pulse oximetry Branch Body weight 2023-02-18 58.968 kg University of 07:50:00 [facility] BMI 2023-02-18 18.65 kg/m2 University of 07:50:00 [facility] Body height 2023-02-16 177.8 cm University of 00:31:00 [facility] Oxygen saturation 2023-02-07 99 /min University of in Arterial blood 19:29:00 [facility] by Pulse oximetry Branch Systolic blood 2023-02-07 103 mm[Hg] University of pressure 19:27:00 [facility] Diastolic blood 2023-02-07 75 mm[Hg] University o f pressure 19:27:00 [facility] Heart rate 2023-02-07 104 /min University of 19:27:00 [facility] Body temperature 2023-02-07 36.39 Tia University of 19:27:00 [facility] Respiratory rate 2023-02-07 22 /min University of 19:27:00 [facility] Body weight 2023-02-07 72.576 kg University of 19:27:00 [facility] BMI 2023-02-07 22.96 kg/m2 University of 19:27:00 [facility] Heart rate 2023-02-05 85 /min University of 20:17:00 [facility] Respiratory rate 2023-02-05 18 /min University of 20:17:00 [facility] Oxygen saturation 2023-02-05 100 /min University of in Arterial blood 20:17:00 [facility] by Pulse oximetry Branch Systolic blood 2023-02-05 98 mm[Hg] University of pressure 19:53:35 [facility] Diastolic blood 2023-02-05 71 mm[Hg] University o f pressure 19:53:35 [facility] Body temperature 2023-02-05 36.5 Tia University of 19:51:00 [facility] Body height 2023-02-05 177.8 cm University of 19:51:00 [facility] Body weight 2023-02-05 72.576 kg University of 19:51:00 [facility] BMI 2023-02-05 22.96 kg/m2 University of 19:51:00 [facility] Heart rate 2023-02-04 76 /min University of 20:31:00 [facility] Respiratory rate 2023-02-04 18 /min University of 20:31:00 [facility] Oxygen saturation 2023-02-04 97 /min University of in Arterial blood 20:31:00 [facility] by Pulse oximetry Branch Systolic blood 2023-02-04 126 mm[Hg] University of pressure 20:15:00 [facility] Diastolic blood 2023-02-04 98 mm[Hg] University o f pressure 20:15:00 [facility] Body temperature 2023-02-04 36.83 Tia University of 20:15:00 [facility] Body weight 2023-02-04 72.576 kg University of 20:15:00 [facility] BMI 2023-02-04 22.96 kg/m2 University of 20:15:00 [facility] Systolic blood 2023-02-03 100 mm[Hg] University of pressure 23:00:00 [facility] Diastolic blood 2023-02-03 65 mm[Hg] University o f pressure 23:00:00 [facility] Heart rate 2023-02-03 115 /min University of 23:00:00 [facility] Respiratory rate 2023-02-03 20 /min University of 23:00:00 [facility] Oxygen saturation 2023-02-03 97 /min University of in Arterial blood 23:00:00 [facility] by Pulse oximetry Branch Body temperature 2023-02-03 36.72 Tia University of 22:44:00 [facility] Body weight 2023-02-03 72.576 kg University of 22:44:00 [facility] BMI 2023-02-03 22.96 kg/m2 University of 22:44:00 [facility] Systolic blood 2023-02-03 128 mm[Hg] University of pressure 20:02:00 [facility] Diastolic blood 2023-02-03 81 mm[Hg] University o f pressure 20:02:00 [facility] Heart rate 2023-02-03 88 /min University of 20:02:00 [facility] Respiratory rate 2023-02-03 25 /min University of 20:02:00 [facility] Oxygen saturation 2023-02-03 94 /min University of in Arterial blood 20:02:00 [facility] by Pulse oximetry Branch Body temperature 2023-02-03 36.61 Tia University of 18:18:00 [facility] Body weight 2023-02-03 72.576 kg University of 17:41:00 [facility] BMI 2023-02-03 22.96 kg/m2 University of 17:41:00 [facility] Heart rate 2023-02-02 107 /min University of 22:49:00 [facility] Respiratory rate 2023-02-02 20 /min University of 22:49:00 [facility] Oxygen saturation 2023-02-02 94 /min University of in Arterial blood 22:49:00 [facility] by Pulse oximetry Branch Systolic blood 2023-02-02 102 mm[Hg] University of pressure 22:32:00 [facility] Diastolic blood 2023-02-02 74 mm[Hg] University o f pressure 22:32:00 [facility] Body temperature 2023-02-02 35.83 Tia University of 21:58:32 [facility] Body height 2023-02-02 177.8 cm University of 21:54:00 [facility] Body weight 2023-02-02 72.576 kg University of 21:54:00 [facility] BMI 2023-02-02 22.96 kg/m2 University of 21:54:00 [facility] Systolic blood 2023-01-31 140 mm[Hg] University of pressure 21:00:00 [facility] Diastolic blood 2023-01-31 72 mm[Hg] University o f pressure 21:00:00 [facility] Heart rate 2023-01-31 89 /min University of 21:00:00 [facility] Respiratory rate 2023-01-31 20 /min University of 21:00:00 [facility] Oxygen saturation 2023-01-31 97 /min University of in Arterial blood 21:00:00 [facility] by Pulse oximetry Branch Body temperature 2023-01-31 36.72 Tia University of 18:50:00 [facility] Body weight 2023-01-31 72.576 kg University of 18:50:00 [facility] BMI 2023-01-31 22.96 kg/m2 University of 18:50:00 [facility] Systolic blood 2023-01-31 130 mm[Hg] University of pressure 16:09:00 [facility] Diastolic blood 2023-01-31 72 mm[Hg] University o f pressure 16:09:00 [facility] Heart rate 2023-01-31 99 /min University of 16:09:00 [facility] Body temperature 2023-01-31 36.39 Tia University of 16:09:00 [facility] Respiratory rate 2023-01-31 18 /min University of 16:09:00 [facility] Body height 2023-01-31 177.8 cm University of 16:09:00 [facility] Body weight 2023-01-31 72.576 kg University of 16:09:00 [facility] BMI 2023-01-31 22.96 kg/m2 University of 16:09:00 [facility] Oxygen saturation 2023-01-31 97 /min University of in Arterial blood 16:09:00 [facility] by Pulse oximetry Branch Systolic blood 2023-01-31 134 mm[Hg] University of pressure 14:50:00 [facility] Diastolic blood 2023-01-31 72 mm[Hg] University o f pressure 14:50:00 [facility] Heart rate 2023-01-31 85 /min University of 14:50:00 [facility] Body temperature 2023-01-31 36.39 Tia University of 14:50:00 [facility] Respiratory rate 2023-01-31 20 /min University of 14:50:00 [facility] Body weight 2023-01-31 72.576 kg University of 14:50:00 [facility] BMI 2023-01-31 22.96 kg/m2 University of 14:50:00 [facility] Oxygen saturation 2023-01-31 100 /min University of in Arterial blood 14:50:00 [facility] Pulse oxim[facility] Respiratory rate 2023-01-29 20 /min University of 13:40:00 [facility] Oxygen saturation 2023-01-29 100 /min University of in Arterial blood 13:40:00 [facility] Pulse oxim[facility] Systolic blood 2023-01-29 123 mm[Hg] University of pressure 13:06:00 [facility] Diastolic blood 2023-01-29 76 mm[Hg] University o f pressure 13:06:00 [facility] Heart rate 2023-01-29 97 /min University of 13:06:00 [facility] Body temperature 2023-01-29 36.61 Tia University of 13:06:00 [facility] Body height 2023-01-29 177.8 cm University of 13:06:00 [facility] Body weight 2023-01-29 72.576 kg University of 13:06:00 [facility] BMI 2023-01-29 22.96 kg/m2 University of 13:06:00 [facility] Systolic blood 2023-01-27 115 mm[Hg] University of pressure 11:47:00 [facility] Diastolic blood 2023-01-27 75 mm[Hg] University o f pressure 11:47:00 [facility] Heart rate 2023-01-27 100 /min University of 11:47:00 [facility] Body temperature 2023-01-27 35.78 Tia University of 11:47:00 [facility] Respiratory rate 2023-01-27 28 /min University of 11:47:00 [facility] Oxygen saturation 2023-01-27 99 /min University of in Arterial blood 11:47:00 [facility] by Pulse oximetry Branch Body height 2023-01-27 177.8 cm University of 09:57:00 [facility] Body weight 2023-01-27 72.576 kg University of 09:57:00 [facility] BMI 2023-01-27 22.96 kg/m2 University of 09:57:00 [facility] Heart rate 2023-01-24 88 /min University of 20:55:00 [facility] Oxygen saturation 2023-01-24 93 /min University of in Arterial blood 20:55:00 [facility] by Pulse oximetry Branch Respiratory rate 2023-01-24 22 /min University of 20:52:00 [facility] Systolic blood 2023-01-24 128 mm[Hg] University of pressure 20:30:00 [facility] Diastolic blood 2023-01-24 69 mm[Hg] University o f pressure 20:30:00 [facility] Body temperature 2023-01-24 36.67 Tia University of 17:24:00 [facility] Body height 2023-01-24 177.8 cm University of 17:24:00 [facility] Body weight 2023-01-24 72.576 kg University of 17:24:00 [facility] BMI 2023-01-24 22.96 kg/m2 University of 17:24:00 [facility] Systolic blood 2023-01-24 129 mm[Hg] University of pressure 01:00:00 [facility] Diastolic blood 2023-01-24 76 mm[Hg] University o f pressure 01:00:00 [facility] Heart rate 2023-01-24 77 /min University of 01:00:00 [facility] Respiratory rate 2023-01-24 18 /min [facility] of 01:00:00 [facility] Oxygen saturation 2023-01-24 99 /min [facility] in Arterial blood 01:00:00 [facility] by Pulse oximetry Branch Body temperature 2023-01-24 35.61 Tia warm blankets University of 00:02:00 applied [facility] Body weight 2023-01-24 58.968 kg University of 00:02:00 [facility] BMI 2023-01-24 18.65 kg/m2 University of 00:02:00 [facility] Heart rate 2023-01-22 93 /min University of 23:46:00 [facility] Respiratory rate 2023-01-22 20 /min [facility] of 23:46:00 [facility] Oxygen saturation 2023-01-22 100 /min University of in Arterial blood 23:46:00 [facility] by Pulse oximetry Branch Systolic blood 2023-01-22 146 mm[Hg] University of pressure 23:21:00 [facility] Diastolic blood 2023-01-22 93 mm[Hg] University o f pressure 23:21:00 [facility] Body temperature 2023-01-22 36.72 Tia University of 23:21:00 [facility] Body weight 2023-01-22 58.968 kg University of 23:21:00 [facility] BMI 2023-01-22 18.65 kg/m2 University of 23:21:00 [facility] Heart rate 2023-01-21 84 /min University of 21:57:00 [facility] Respiratory rate 2023-01-21 18 /min University of :57:00 [facility] Oxygen saturation 2023-01-21 97 /min [facility] of in Arterial blood 21:57:00 [facility] by Pulse oximetry Branch Systolic blood 2023-01-21 103 mm[Hg] University of pressure 21:00:00 [facility] Diastolic blood 2023-01-21 61 mm[Hg] University o f pressure 21:00:00 [facility] Body temperature 2023-01-21 36.56 Tia University of 19:24:00 [facility] Body weight 2023-01-21 58.968 kg University of 19:24:00 [facility] BMI 2023-01-21 18.65 kg/m2 University of 19:24:00 [facility] Systolic blood 2023-01-19 111 mm[Hg] University of pressure 21:00:00 [facility] Diastolic blood 2023-01-19 64 mm[Hg] University o f pressure 21:00:00 [facility] Heart rate 2023-01-19 85 /min University of :00:00 [facility] Body temperature 2023-01-19 36.56 Tia University of 21:00:00 [facility] Respiratory rate 2023-01-19 17 /min University of :00:00 [facility] Oxygen saturation 2023-01-19 98 /min [facility] of in Arterial blood 21:00:00 [facility] by Pulse oximetry Branch Body height 2023-01-19 177.8 cm University of 06:22:00 [facility] Body weight 2023-01-19 58.968 kg University of 06:22:00 [facility] BMI 2023-01-19 18.65 kg/m2 University of 06:22:00 [facility] Systolic blood 2023-01-17 116 mm[Hg] University of pressure 12:05:00 [facility] Diastolic blood 2023-01-17 69 mm[Hg] University o f pressure 12:05:00 [facility] Heart rate 2023-01-17 100 /min University of 12:05:00 [facility] Respiratory rate 2023-01-17 24 /min University of 12:05:00 [facility] Oxygen saturation 2023-01-17 93 /min [facility] in Arterial blood 12:05:00 [place] [facility] Pulse o[facility] Body temperature 2023-01-17 35.39 Tia University [facility] 10:59:00 [facility] Body height 2023-01-17 177.8 cm University of 10:59:00 [facility] Body weight 2023-01-17 58.968 kg University of 10:59:00 [facility] BMI 2023-01-17 18.65 kg/m2 University of 10:59:00 [facility] Systolic blood 2023-01-07 122 mm[Hg] University of pressure 19:38:00 [facility] Diastolic blood 2023-01-07 86 mm[Hg] University o f pressure 19:38:00 [facility] Heart rate 2023-01-07 110 /min University of 19:38:00 [facility] Respiratory rate 2023-01-07 16 /min University of 19:38:00 [facility] Body height 2023-01-07 177.8 cm University of 19:38:00 [facility] Body weight 2023-01-07 59.966 kg University of 19:38:00 [facility] BMI 2023-01-07 18.97 kg/m2 University of 19:38:00 [facility] Systolic blood 2022-12-26 118 mm[Hg] University of pressure 18:00:00 [facility] Diastolic blood 2022-12-26 79 mm[Hg] University o f pressure 18:00:00 [facility] Heart rate 2022-12-26 93 /min [facility] of 18:00:00 [facility] Respiratory rate 2022-12-26 20 /min [facility] of 18:00:00 [facility] Oxygen saturation 2022-12-26 95 /min [facility] in Arterial blood 18:00:00 [place] [facility] Pulse oximetry [facility] Body temperature 2022-12-26 36.11 Tia University of 15:49:00 [facility] Body height 2022-12-26 177.8 cm University of 15:49:00 [facility] Body weight 2022-12-26 72.576 kg University of 15:49:00 [facility] BMI 2022-12-26 22.96 kg/m2 University of 15:49:00 [facility] Respiratory rate 2022-12-12 18 /min University of 16:45:00 [facility] Oxygen saturation 2022-12-12 99 /min [facility] in Arterial blood 16:45:00 [place] [facility] Pulse oxim[facility] Systolic blood 2022-12-12 135 mm[Hg] University of pressure 16:11:00 [facility] Diastolic blood 2022-12-12 80 mm[Hg] University o f pressure 16:11:00 [facility] Heart rate 2022-12-12 77 /min [facility] of 16:11:00 [facility] Body temperature 2022-12-12 35.89 Tia University of 16:11:00 [facility] Body weight 2022-12-12 65 kg University of 08:50:00 [facility] BMI 2022-12-12 20.56 kg/m2 University of 08:50:00 [facility] Body height 2022-12-11 177.8 cm University of 04:23:00 [facility] Heart rate 2022-12-04 95 /min [facility] of 12:33:00 [facility] Respiratory rate 2022-12-04 17 /min [facility] of 12:33:00 [facility] Oxygen saturation 2022-12-04 98 /min [facility] in Arterial blood 12:33:00 [facility] by Pulse oximetry Branch Systolic blood 2022-12-04 125 mm[Hg] University of pressure 12:20:00 [facility] Diastolic blood 2022-12-04 74 mm[Hg] University o f pressure 12:20:00 [facility] Body temperature 2022-12-04 36.61 Tia University of 12:20:00 [facility] Body height 2022-12-02 177.8 cm University of 05:16:00 [facility] Body weight 2022-12-02 72.576 kg University of 05:16:00 [facility] BMI 2022-12-02 22.96 kg/m2 University of 05:16:00 [facility] Systolic blood 2022-12-01 114 mm[Hg] University of pressure 13:00:00 [facility] Diastolic blood 2022-12-01 78 mm[Hg] University o f pressure 13:00:00 [facility] Heart rate 2022-12-01 88 /min [facility] of 13:00:00 [facility] Respiratory rate 2022-12-01 20 /min [facility] 13:00:00 [facility] Oxygen saturation 2022-12-01 98 /min [facility] in Arterial blood 13:00:00 [place] [facility] Pulse oximetry [facility] Body temperature 2022-12-01 36.67 Tai University of 10:13:00 [facility] Body height 2022-12-01 177.8 cm University of 10:13:00 [facility] Body weight 2022-12-01 72.576 kg University of 10:13:00 [facility] BMI 2022-12-01 22.96 kg/m2 University of 10:13:00 [facility] Systolic blood 2022-11-28 154 mm[Hg] University of pressure 17:00:00 [facility] Diastolic blood 2022-11-28 106 mm[Hg] University o f pressure 17:00:00 [facility] Heart rate 2022-11-28 87 /min [facility] of 17:00:00 [facility] Respiratory rate 2022-11-28 23 /min [facility] 17:00:00 [facility] Oxygen saturation 2022-11-28 96 /min [facility] in Arterial blood 17:00:00 [place] [facility] Pulse oxim[facility] Body temperature 2022-11-28 36.78 Tia University [facility] 16:00:00 [facility] Body weight 2022-11-27 67.132 kg University of 12:00:00 [facility] BMI 2022-11-27 21.24 kg/m2 University of 12:00:00 [facility] Body height 2022-11-27 177.8 cm University of 08:39:00 [facility] Systolic blood 2022-11-19 152 mm[Hg] University of pressure 10:48:00 [facility] Diastolic blood 2022-11-19 88 mm[Hg] University o f pressure 10:48:00 [facility] Heart rate 2022-11-19 92 /min University of 10:48:00 [facility] Respiratory rate 2022-11-19 16 /min [facility] 10:48:00 [facility] Oxygen saturation 2022-11-19 98 /min [facility] in Arterial blood 10:48:00 [place] [facility] Pulse oxim[facility] Body temperature 2022-11-19 36.22 Tia University of 08:20:00 [facility] Body height 2022-11-19 177.8 cm University of 08:20:00 [facility] Body weight 2022-11-19 67.132 kg University of 08:20:00 [facility] BMI 2022-11-19 21.24 kg/m2 University of 08:20:00 [facility] Systolic blood 2022-11-19 152 mm[Hg] University of pressure 02:18:57 [facility] Diastolic blood 2022-11-19 91 mm[Hg] University o f pressure 02:18:57 [facility] Heart rate 2022-11-19 109 /min [facility] of 02:18:57 [facility] Respiratory rate 2022-11-19 22 /min University of 02:18:57 [facility] Oxygen saturation 2022-11-19 95 /min [facility] in Arterial blood 02:18:57 [facility] by Pulse oximetry Branch Body temperature 2022-11-19 36.78 Tia University of 02:17:11 [facility] Body height 2022-11-19 177.8 cm University of 00:52:00 [facility] Body weight 2022-11-19 67.132 kg University of 00:52:00 [facility] BMI 2022-11-19 21.24 kg/m2 University of 00:52:00 [facility] Heart rate 2022-11-11 75 /min University of 17:35:00 [facility] Respiratory rate 2022-11-11 18 /min [facility] of 17:35:00 [facility] Oxygen saturation 2022-11-11 95 /min [facility] in Arterial blood 17:35:00 [facility] by Pulse oximetry Branch Systolic blood 2022-11-11 130 mm[Hg] University of pressure 17:25:00 [facility] Diastolic blood 2022-11-11 71 mm[Hg] University o f pressure 17:25:00 [facility] Body temperature 2022-11-11 35.94 Tia University of 17:25:00 [facility] Body weight 2022-11-11 77.52 kg University of 09:34:00 [facility] BMI 2022-11-11 24.52 kg/m2 University of 09:34:00 [facility] Body height 2022-11-09 177.8 cm University of 19:30:00 [facility] Systolic blood 2020-12-29 96 mm[Hg] University of pressure 15:24:00 [facility] Diastolic blood 2020-12-29 66 mm[Hg] University o f pressure 15:24:00 [facility] Heart rate 2020-12-29 71 /min University of 15:24:00 [facility] Body temperature 2020-12-29 36.33 Tia University of 15:24:00 [facility] Body weight 2020-12-29 72.576 kg University of 15:24:00 [facility] BMI 2020-12-29 22.96 kg/m2 University of 15:24:00 [facility] Oxygen saturation 2020-12-29 95 /min [facility] in Arterial blood 15:24:00 [facility] by Pulse oximetry Branch Systolic blood 2020-12-18 117 mm[Hg] University of pressure 19:07:00 [facility] Diastolic blood 2020-12-18 77 mm[Hg] University o f pressure 19:07:00 [facility] Heart rate 2020-12-18 77 /min [facility] of 19:07:00 [facility] Body temperature 2020-12-18 36.22 Tia University of 19:07:00 [facility] Respiratory rate 2020-12-18 18 /min University of 19:07:00 [facility] Body height 2020-12-18 177.8 cm University of 19:07:00 [facility] Body weight 2020-12-18 73.211 kg University of 19:07:00 [facility] BMI 2020-12-18 23.16 kg/m2 University of 19:07:00 [facility] Systolic blood 2020-12-12 109 mm[Hg] University of pressure 18:00:00 [facility] Diastolic blood 2020-12-12 74 mm[Hg] University o f pressure 18:00:00 [facility] Heart rate 2020-12-12 78 /min University of 18:00:00 [facility] Respiratory rate 2020-12-12 20 /min [facility] of 18:00:00 [facility] Oxygen saturation 2020-12-12 96 /min [facility] in Arterial blood 18:00:00 [place] [facility] P[facility] o[facility] Body temperature 2020-12-12 37.28 Tia University of 16:33:00 [facility] Body height 2020-12-12 177.8 cm University of 16:33:00 [facility] Body weight 2020-12-12 70.308 kg University of 16:33:00 [facility] BMI 2020-12-12 22.24 kg/m2 University of 16:33:00 [facility] Systolic blood 2020-12-08 125 mm[Hg] University of pressure 18:55:00 [facility] Diastolic blood 2020-12-08 82 mm[Hg] University o f pressure 18:55:00 [facility] Heart rate 2020-12-08 75 /min [facility] of 18:55:00 [facility] Body temperature 2020-12-08 36.56 Tia University of 18:55:00 [facility] Respiratory rate 2020-12-08 16 /min University of 18:55:00 [facility] Body height 2020-12-08 177.8 cm University of 18:55:00 [facility] Body weight 2020-12-08 73.12 kg University of 18:55:00 [facility] BMI 2020-12-08 23.13 kg/m2 University of 18:55:00 [facility] Systolic blood 2019-05-04 127 mm[Hg] University of pressure 04:21:00 [facility] Diastolic blood 2019-05-04 86 mm[Hg] University o f pressure 04:21:00 [facility] Heart rate 2019-05-04 99 /min University of 04:21:00 [facility] Respiratory rate 2019-05-04 26 /min [facility] of 04:21:00 [facility] Body height 2019-05-04 177.8 cm University of 04:21:00 [facility] Body weight 2019-05-04 72.576 kg University of 04:21:00 [facility] BMI 2019-05-04 22.96 kg/m2 University of 04:21:00 [facility] Oxygen saturation 2019-05-04 99 /min [facility] in Arterial blood 04:21:00 [facility] Pulse oximetry Branch Systolic blood 2019-05-04 127 mm[Hg] University of pressure 04:21:00 [facility] Diastolic blood 2019-05-04 86 mm[Hg] University o f pressure 04:21:00 [facility] Heart rate 2019-05-04 99 /min University of 04:21:00 [facility] Respiratory rate 2019-05-04 26 /min [facility] of 04:21:00 [facility] Body height 2019-05-04 177.8 cm [facility] 04:21:00 [facility] Body weight 2019-05-04 72.576 kg [facility] 04:21:00 [facility] BMI 2019-05-04 22.96 kg/m2 [facility] 04:21:00 [facility] Oxygen saturation 2019-05-04 99 /min [facility] in Arterial blood 04:21:00 [facility] by Pulse oximetry Branch Procedures Procedure Date / Time Performing Clinician Source Performed [id number] 2023-03-15 00:00:00 YARELYU [facility] CONSENT/REFUSAL FOR 2023-03-01 19:49:30 Doctor Unassigned, No [facility] Name [facility] [place] TRANSTHORACIC ECHO (TTE) 2023-02-16 13:56:56 Dedrick Toth [facility] COMPLETE W/ CONTRAST Medical [facility] TROPONIN I 2023-02-16 11:32:00 Dedrick Toth [facility] COMP. METABOLIC PANEL 2023-02-16 11:32:00 Dedrick Toth [facility] ([id number]) [facility] CBC WITH DIFF 2023-02-16 11:32:00 Dedrick Toth [facility] N-TERMINAL PRO-BNP 2023-02-16 11:32:00 Dedrick Toth [facility] URINALYSIS 2023-02-15 21:18:00 Francisca Bryant [facility] HB ECG ROUTINE & RHYTHM 2023-02-15 20:15:35 Francisca Bryant [facility] XR CHEST 1 VW 2023-02-15 20:14:30 Francisca Bryant [facility] AC PANEL 21 + LACTIC 2023-02-15 20:02:00 Francisca Bryant [facility] ACID [facility] MAGNESIUM 2023-02-15 20:01:00 Francisca Bryant [facility] TROPONIN I 2023-02-15 20:01:00 Francisca Bryant [facility] COMP. METABOLIC PANEL 2023-02-15 20:01:00 Francisca Bryant [facility] ([id number]) Medical Branch CBC WITH DIFF 2023-02-15 20:01:00 Francisca Bryant [facility] ASSIGNMENT OF BENEFITS 2023-02-07 19:52:07 Doctor Unassigned, No General acute hospital CONSENT/REFUSAL FOR 2023-02-07 19:51:03 Doctor Unassigned, No [facility] [place] [facility] Name [facility] CONSENT/REFUSAL FOR 2023-02-04 19:51:56 Doctor Unassigned, No [facility] [place] DIAGNOSIS AND TREATMENT Name [facility] TROPONIN I 2023-01-31 20:21:00 Kristie Aultman [facility] COMP. METABOLIC PANEL 2023-01-31 20:21:00 Rachael Flowers [facility] ([id number]) Medical Branch ETHANOL 2023-01-31 20:21:00 Kristie Aultman [facility] CBC WITH DIFF 2023-01-31 20:21:00 Kristie Aultman [facility] N-TERMINAL PRO-BNP 2023-01-31 20:21:00 Rachael Flowers [facility] CONSENT/REFUSAL FOR 2023-01-31 18:39:05 Doctor Unassigned, No [facility] [place] DIAGNOSIS AND TREATMENT [facility] Medical Branch CONSENT/REFUSAL FOR 2023-01-31 15:54:08 Doctor Unassigned, No Un [facility] [place] DIAGNOSIS AND TREATMENT [facility] Medical Branch CONSENT/REFUSAL FOR 2023-01-31 14:29:18 Doctor Unassigned, No Un [facility] [place] DIAGNOSIS [facility] TREATMENT Name [facility] ACUTE CARE VENOUS BLOOD 2023-01-27 10:45:00 Bessie Oswald [facility] GAS [facility] TROPONIN I 2023-01-27 10:16:00 Bessie Oswald [facility] BASIC METABOLIC PANEL 2023-01-27 10:16:00 Bessie Oswald [facility] (NA, K, CL, CO2, Medical Branch GLUCOSE, BUN, CREATININE, CA) CBC WITH DIFF 2023-01-27 10:16:00 Bessie Oswald [facility] N-TERMINAL PRO-BNP 2023-01-27 10:16:00 Bessie Oswald [facility] URINALYSIS 2023-01-24 20:23:00 Stephanie Almonte [facility] CT HEAD WO CONTRAST 2023-01-24 19:38:00 Stephanie Almonte [facility] AC ABG + LACTIC ACID 2023-01-24 18:37:00 [facility] 2023-01-24 18:19:00 Stephanie Almonte [facility] RAPID STREP SCREEN FOR 2023-01-24 18:19:00 Stephanie Almonte [facility] GROUP A [facility] COVID-19 (ID NOW RAPID 2023-01-24 18:19:00 Stephanie Almonte [facility] TESTING) [facility] TROPONIN I 2023-01-24 17:52:00 Stephanie Almonte [facility] COMP. METABOLIC PANEL 2023-01-24 17:52:00 Stephanie Almonte [facility] ([id number]) Medical Branch ETHANOL 2023-01-24 17:52:00 Stephanie Almonte [facility] CBC WITH DIFF 2023-01-24 17:52:00 Stephanie Almonte [facility] N-TERMINAL PRO-BNP 2023-01-24 17:52:00 Stephanie Almonte [facility] COMP. METABOLIC PANEL 2023-01-21 20:58:00 Louis Hong [facility] ([id number]) [facility] TROPONIN I 2023-01-21 20:05:00 Singer [facility] CBC WITH DIFF 2023-01-21 20:05:00 Singer [facility] N-TERMINAL PRO-BNP 2023-01-21 20:05:00 Louis Hong [facility] AC PANEL 21 + LACTIC 2023-01-19 08:31:00 Agapito Hackett [facility] ACID [facility] D-DIMER 2023-01-19 08:17:00 Hackett, [facility] BASIC METABOLIC PANEL 2023-01-19 08:15:00 Iza Varma [facility] (NA, K, CL, CO2, Medical Branch GLUCOSE, BUN, CREATININE, CA) CBC WITH DIFF 2023-01-19 08:15:00 Iza [facility]ma [facility] N-TERMINAL PRO-BNP 2023-01-19 08:15:00 [facility] 2023-01-17 12:23:30 Marisol Devlin [facility] XR CHEST 1 VW 2023-01-17 11:25:05 [facility]23-01-17 11:04:00 Marisol Devlin [facility] COMP. METABOLIC PANEL 2023-01-17 11:04:00 Marisol Devlin [facility] ([id number]) [facility] CBC WITH DIFF 2023-01-17 11:04:00 Marisol Devlin [facility] N-TERMINAL PRO-BNP 2023-01-17 11:04:00 Marisol Devlin [facility] COMP. METABOLIC PANEL 2022-12-26 17:23:00 Iza Varma [facility] ([id number]) [facility] XR CHEST 1 VW 2022-12-26 16:39:21 Iza Varma [facility] URINE DRUG (IMMUNOASSAY) 2022-12-26 16:29:00 Iza Varma [facility] Medical [facility] SCREEN URINALYSIS 2022-12-26 16:29:00 Iza [facility]ma [facility] CBC WITH DIFF 2022-12-26 16:28:00 Iza [facility]ma [facility] MAGNESIUM 2022-12-12 08:55:00 Karri [facility] BASIC METABOLIC PANEL 2022-12-12 08:55:00 [facility] (NA, K, CL, CO2, Medical Branch GLUCOSE, BUN, CREATININE, CA) LIPID PANEL 2022-12-12 08:55:00 WandaFormerly [facility] ([id number])(TOTAL Medical Branch CHOLESTEROL, TRIGLYCERIDES, HDL) N-TERMINAL PRO-BNP 2022-12-12 08:55:[address] [facility] 2022-12-11 08:30:00 Dedrick Toth [facility] OSMOLALITY, SERUM OR 2022-12-11 08:30:00 [facility] PLASMA [facility] FREE T4 2022-12-11 08:30:00 Dedrick Toth [facility] BASIC METABOLIC PANEL 2022-12-11 08:30:00 Dedrick Toth [facility] (NA, K, CL, CO2, [facility] [place] GLUCOSE, BUN, CREATININE, CA) CBC WITH DIFF 2022-12-11 08:30:00 Dedrick Toth [facility] N-TERMINAL PRO-BNP 2022-12-11 08:30:00 Dedrick Toth [facility] OSMOLALITY URINE 2022-12-11 03:24:00 Dedrick Toth [facility] SODIUM, URINE RANDOM 2022-12-11 03:24:00 Dedrick Toth [facility] URINALYSIS 2022-12-11 01:15:00 Singer [facility] HB ECG ROUTINE & RHYTHM 2022-12-11 00:38:04 Singer [facility] CT HEAD WO CONTRAST 2022-12-11 00:32:23 Singer Louis [facility] XR CHEST 1 VW 2022-12-11 00:29:20 Singer [facility] TROPONIN I 2022-12-11 00:08:00 Singer [facility] COMP. METABOLIC PANEL 2022-12-11 00:08:00 Louis Hong [facility] ([id number]) Medical Branch ETHANOL 2022-12-11 00:08:00 Singer [facility] CBC WITH DIFF 2022-12-11 00:08:00 Singer [facility] N-TERMINAL PRO-BNP 2022-12-11 00:08:00 Louis Hong [facility] LACTIC ACID WHOLE BLOOD 2022-12-11 00:03:00 Singer Louis [facility] AUTHORIZATION FOR 2022-12-09 05:01:00 Doctor Unassigned, No [facility] RELEASE OF [facility] BASIC METABOLIC PANEL 2022-12-04 10:43:00 Ben [facility] (NA, K, CL, CO2, Medical Branch GLUCOSE, BUN, CREATININE, CA) CBC WITH DIFF 2022-12-04 10:43:00 Ben [facility] OSMOLALITY URINE 2022-12-03 17:05:00 Jonnathan Sudhakar [facility] SODIUM, URINE RANDOM 2022-12-03 17:05:00 Sudhakar De Santiago Un iversity [facility] MAGNESIUM 2022-12-03 10:20:00 Ben [facility] BASIC METABOLIC PANEL 2022-12-03 10:20:00 Ben [facility] (NA, K, CL, CO2, [facility] GLUCOSE, BUN, CREATININE, CA) CBC WITH DIFF 2022-12-03 10:20:00 Ben [facility] BASIC METABOLIC PANEL 2022-12-02 05:27:00 Carlo [facility] (NA, K, CL, CO2, Medical Branch GLUCOSE, BUN, CREATININE, CA) CONSENT/REFUSAL FOR 2022-12-02 05:08:30 Doctor Unassigned, No [facility] HOSPITAL ADMISSION 2022-12-02 05:01:00 Doctor Unassigned, No Uni versity of [facility] COVID-19 (ID NOW RAPID 2022-12-01 13:01:00 Ernesto Piper [facility] TESTING) [facility] XR CHEST 1 VW 2022-12-01 12:40:25 [facility] 2022-12-01 12:17:26 Marisol Devlin [facility] ACUTE CARE ARTERIAL 2022-12-01 12:06:00 Marisol Devlin [facility] BLOOD GAS Medical Branch TROPONIN I 2022-12-01 11:51:00 Marisol Devlin [facility] BASIC METABOLIC PANEL 2022-12-01 11:51:00 Marisol Devlin [facility] (NA, K, CL, CO2, Medical Branch GLUCOSE, BUN, CREATININE, CA) CBC WITH DIFF 2022-12-01 11:51:00 Marisol Devlin [facility] BASIC METABOLIC PANEL 2022-11-28 16:51:00 Leila Chapa [facility] (NA, K, CL, CO2, Medical Branch GLUCOSE, BUN, CREATININE, CA) URIC ACID 2022-11-28 08:14:00 [facility] 2022-11-28 08:14:00 [facility] BASIC METABOLIC PANEL 2022-11-28 08:14:00 Leila Chapa [facility] (NA, K, CL, CO2, Medical Branch GLUCOSE, BUN, CREATININE, CA) CBC WITH DIFF 2022-11-28 08:14:00 María [facility] BASIC METABOLIC PANEL 2022-11-28 04:16:00 María Diaz [facility] (NA, K, CL, CO2, Medical Branch GLUCOSE, BUN, CREATININE, CA) BASIC METABOLIC PANEL 2022-11-28 00:33:00 Leila Chapa [facility] (NA, K, CL, CO2, Medical Branch GLUCOSE, BUN, CREATININE, CA) BASIC METABOLIC PANEL 2022-11-27 19:55:00 María Diaz [facility] (NA, K, CL, CO2, Medical Branch GLUCOSE, BUN, CREATININE, CA) MRSA / MSSA SCREEN BY 2022-11-27 09:21:00 María Diaz [facility] OSMOLALITY, SERUM OR 2022-11-27 09:10:00 María Diaz [facility] PLASMA [facility] OSMOLALITY URINE 2022-11-27 09:04:00 María Diaz [facility] BASIC METABOLIC PANEL 2022-11-27 09:04:00 María Diaz [facility] (NA, K, CL, CO2, Medical Branch GLUCOSE, BUN, CREATININE, CA) URINE DRUG (IMMUNOASSAY) 2022-11-27 09:04:00 María Diaz [facility] SCREEN URINALYSIS 2022-11-27 09:04:00 María [facility] CREATININE, URINE RANDOM 2022-11-27 09:04:00 María Diaz [facility] SODIUM, URINE RANDOM 2022-11-27 09:04:00 Mraía Diaz [facility] XR CHEST 1 VW 2022-11-27 06:15:54 Bessie [facility] MAGNESIUM 2022-11-27 05:33:00 María [facility] TROPONIN I 2022-11-27 05:33:00 Bessie [facility] COMP. METABOLIC PANEL 2022-11-27 05:33:00 Bessie Oswald [facility] ([id number]) [facility] ETHANOL 2022-11-27 05:33:00 Bessie [facility] CBC WITH DIFF 2022-11-27 05:33:00 Bessie [facility] GLYCOSYLATED HEMOGLOBIN 2022-11-27 05:33:00 Leila Chapa [facility] (A1C) [facility] N-TERMINAL PRO-BNP 2022-11-27 05:33:00 Bessie Oswald [facility] HB ECG ROUTINE & RHYTHM 2022-11-27 05:31:54 Bessie Oswald [facility] STRIP [facility] COMP. METABOLIC PANEL 2022-11-19 08:44:00 Iza Varma [facility] ([id number]) [facility] CBC WITH DIFF 2022-11-19 08:44:00 Iza [facility]ma [facility] N-TERMINAL PRO-BNP 2022-11-19 08:44:00 Iza Varma [facility] Medical Branch BASIC METABOLIC PANEL 2022-11-11 10:52:00 Iza Eden [facility] (NA, K, CL, CO2, Medical Branch GLUCOSE, BUN, CREATININE, CA) CBC WITH DIFF 2022-11-11 10:52:00 Iza Eden [facility] BASIC METABOLIC PANEL 2022-11-11 02:16:00 [facility] (NA, K, CL, CO2, Medical Branch GLUCOSE, BUN, CREATININE, CA) BASIC METABOLIC PANEL 2022-11-10 22:45:00 [facility], K, CL, CO2, Medical Branch GLUCOSE, BUN, CREATININE, CA) BASIC METABOLIC PANEL 2022-11-10 17:27:00 [facility] (NA, K, CL, CO2, Medical Branch GLUCOSE, BUN, CREATININE, CA) BASIC METABOLIC PANEL 2022-11-10 11:49:00 [facility] (NA, K, CL, CO2, Medical Branch GLUCOSE, BUN, CREATININE, CA) MAGNESIUM 2022-11-10 07:14:00 Travis [facility] BASIC METABOLIC PANEL 2022-11-10 07:14:00 [facility] (NA, K, CL, CO2, Medical Branch GLUCOSE, BUN, CREATININE, CA) CBC WITH DIFF 2022-11-10 07:14:00 [facility] XR CHEST 1 VW 2022-11-09 07:53:00 Marisol Devlin [facility] LIPASE 2022-11-09 07:53:00 Marisol Devlin [facility] TROPONIN I 2022-11-09 07:53:00 Marisol Devlin [facility] COMP. METABOLIC PANEL 2022-11-09 07:53:00 Marisol Devlin [facility] ([id number]) Medical Branch CBC WITH DIFF 2022-11-09 07:53:00 Marisol Devlin [facility] N-TERMINAL PRO-BNP 2022-11-09 07:53:00 Marisol Devlin [facility] ACUTE CARE ARTERIAL 2022-11-09 07:50:00 Marisol Devlin [facility] BLOOD GAS [facility] HB ECG ROUTINE & RHYTHM 2022-11-09 07:39:47 Marisol Devlin [facility] ASSIGNMENT OF BENEFITS 2021-05-20 19:26:54 Doctor Unassigned, No General acute hospital POCT URINALYSIS AUTO 2020-12-18 19:04:00 Gokul [facility] ABDOMEN PELVIS W 2020-12-12 17:25:03 Francisca Bryant [facility] BASIC METABOLIC PANEL 2020-12-12 16:47:00 Francisca Bryant [facility] (NA, K, CL, CO2, Medical Branch GLUCOSE, BUN, CREATININE, CA) CBC WITH DIFF 2020-12-12 16:47:00 Francisca Bryant [facility] URINALYSIS 2020-12-12 16:47:00 Francisca Bryant [facility] NOTICE OF PRIVACY 2020-12-12 16:28:57 Doctor Unassigned, No [facility] CONSENT/REFUSAL FOR 2020-12-12 16:28:23 Doctor Unassigned, No [facility] POCT URINALYSIS AUTO 2020-12-08 18:56:00 Jeanette [facility] CONSENT/REFUSAL FOR 2020-12-08 18:26:17 Doctor Unassigned, No [facility] ASSIGNMENT OF BENEFITS 2020-12-08 18:25:58 Doctor Unassigned, No General acute hospital AUTHORIZATION FOR 2020-02-20 05:01:00 Doctor Unassigned, No [facility] RELEASE OF [facility] NOTICE OF PRIVACY 2019-05-04 04:10:29 Doctor Unassigned, No [facility] CONSENT/REFUSAL FOR 2019-05-04 04:10:09 Doctor Unassigned, No [facility] Name [facility] Encounters Start End Encounter Admission Attending Care Care Encounter Source Date/Time Date/Time Type Type Clinicians Facility Department ID 2021-07-19 Emergency [facility] [id number] Univers 08:46:33 ity [facility] 2023-03-15 2023-03-19 Inpatient EM Rudy Xiao HCAWU INTE.02 [id number] [facility] 07:16:00 14:47:00 22 [facility] 2023-03-01 2023-03-01 Office [facility] 1.2.840.114 [id number] Univers 16:30:00 17:00:00 Visit Herminiakaleo 350.1.13.10 it y of [facility] 4.2.7.2.686 Nelson as JACKIE?BLEA [id number] [facility] [address] [place] MEDICAL OFFICE BUILDING 2023-03-01 2023-03-01 Outpatient R ADRIANO [facility] [id number] Univers 16:30:00 16:30:00 HERMINIA ity of [facility] 2023-03-01 2023-03-01 Orders Doctor ELDER 1.2.840.114 [id number] Univers 00:00:00 00:00:00 Only Unassigned, ASHER 350.1.13.10 ity of [place] [facility] 4.2.7.2.686 Nelson as [id number] [address] 2023-03-01 2023-03-01 Refill Christa [facility] 1.2.840.114 [id number] Univers 00:00:00 00:00:00 , Mily HEALTH 350.1.13.10 ity of M [facility] 4.2.7.2.686 Nelson as JACKIE?BLEA [id number] [facility] [address] [place] MEDICAL OFFICE BUILDING 2023-02-21 2023-02-21 Transition GARY Frye 1.2.840.114 [id number] Univers 00:00:00 00:00:00 of Care Taylor B SHAIKH 350.1.13.10 it [place] [id number] [facility] 403 Branch 2023-02-15 2023-02-18 Inpatient X KARRI [facility] [id number] Univers 14:41:00 16:11:00 TRAVIS [facility] 2023-02-15 2023-02-18 Hospital Iza Varma [facility] 1.2.840.11 4 [id number] Univers 14:41:00 16:11:00 Encounter Francisca Bryant 350.1.13 .10 ity Travis [facility] 4.2.7.2.686 [facility] [id number] [address] 2023-02-07 2023-02-07 Emergency [facility] ERT [id number] Univers 14:30:00 16:01:00 PRADIP [facility] 2023-02-07 2023-02-07 Emergency [facility] 1.2.840.114 [id number] Univers 14:30:00 16:01:00 Pradip DERAS 350.1.13.10 ity [facility] 4.2.7.2.686 [facility] [id number] [address] 2023-02-07 2023-02-07 Outpatient R CARL ORLANDO [facility] [id number] Univers 10:20:00 10:20:00 CARL ORLANDO [facility] 2023-02-05 2023-02-05 Emergency [facility] ERT [id number] Univers 14:53:00 16:10:00 HERMINIA [facility] 2023-02-05 2023-02-05 Emergency [facility] 1.2.320.271 [id number] Univers 14:53:00 16:10:00 Herminia DERAS 350.1.13.10 i ty of [facility] 4.2.7.2.686 [facility] [id number] [address] 2023-02-04 2023-02-04 Emergency [facility] ERT [id number] Univers 15:26:00 16:25:00 FRANCISCA [facility] 2023-02-04 2023-02-04 Emergency Manny, [facility] 1.2.840.114 [id number] Univers 15:26:00 16:25:00 Francisca DERAS 350.1.13.10 ity of [place] 4.2.7.[address] [place] [id number] 2023-02-03 2023-02-03 Emergency Sandie HONG, [facility] ERT [id number] Univers 17:46:00 18:47:00 [place] judge [facility] 2023-02-03 2023-02-03 Emergency X , [facility] ERT [id number] Univers 17:46:00 18:47:00 [place] judge [facility] 2023-02-03 2023-02-03 Emergency , [facility] 1.2.323.794 [id number] Univers 17:46:00 18:47:00 Louis DERAS 350.1.13.10 i ty of [place] 4.2.7.2.[address] [place] [id number] 2023-02-03 2023-02-03 Emergency Jayezechariah, [facility] 1.2.015.960 [id number] Univers 12:43:00 15:04:00 Bessie DERAS 350.1.13.10 i ty of [place] 4.2.7.2.[address] [place] [id number] 2023-02-02 2023-02-02 Emergency X , [facility] ERT [id number] Univers 16:49:00 18:10:00 [place] judge [facility] 2023-02-02 2023-02-02 Emergency Hong, [facility] 1.2.257.012 [id number] Univers 16:49:00 18:10:00 Louis DERAS 350.1.13.10 i ty of [place] 4.2.7.2.[address] [place] [id number] 2023-01-31 2023-01-31 Emergency X KRISTIE, [facility] ERT [id number] Univers 13:55:00 16:50:00 RACHAEL alfie [facility] 2023-01-312023-01-31 Emergency X KRISTIE, [facility] ERT [id number] Univers 13:55:00 16:50:00 RACHAEL judge [facility] 2023-01-31 2023-01-31 Emergency Kristie, [facility] 1.2.840.114 [id number] Univers 13:55:00 16:50:00 Rachael BRAEDEN 350.1.13.10 i ty of [facility] 4.2.7.2.686 [facility] [id number] [address] 2023-01-31 2023-01-31 Emergency X SRAVAN, [facility] ERT [id number] Univers 11:11:00 12:12:00 LEOBARDO [facility] 2023-01-31 2023-01-31 Emergency Maria [facility] 1.2.239.565 [id number] Univers 11:11:00 12:12:00 Leobardo DERAS 350.1.13.10 i ty of [facility] 4.2.7.2.[address] [place] [id number] 2023-01-31 2023-01-31 Emergency [facility] 1.2.387.733 [id number] Univers 09:51:00 10:16:00 BRAEDEN 350.1.13.10 i ty of [facility] 4.2.7.2.686 [facility] [id number] [address] 2023-01-29 2023-01-29 Emergency X MARQUIS, [facility] ERT [id number] Univers 08:08:00 10:00:00 HERMINIA [facility] 2023-01-29 2023-01-29 Emergency [facility] 1.2.843.517 [id number] Univers 08:08:00 10:00:00 Herminia DERAS 350.1.13.10 i ty of [facility] 4.2.7.2.[address] [place] [id number] 2023-01-27 2023-01-27 Emergency X DAREK, [facility] ERT [id number] Univers 04:50:00 07:03:00 BESSIE judge [facility] 2023-01-27 2023-01-27 Emergency [facility] 1.2.160.003 [id number] Univers 04:50:00 07:03:00 Bessie DERAS 350.1.13.10 i ty of [facility] 4.2.7.2.686 [facility] [id number] [address] 2023-01-27 2023-01-27 [place] [facility] 1.2.492.319 [id number] Univers 00:00:00 00:00:00 Nomi DERAS 350.1.13.10 i ty of [facility] 4.2.7.2.686 [facility] [phone] [place] dic[address] 2023-01-24 2023-01-24 Emergency X [facility] ERT [id number] Univers 12:28:00 16:16:00 STEPHANIE [facility] 2023-01-24 2023-01-24 Emergency [facility] 1.2.443.851 [id number] Univers 12:28:00 16:16:00 Stephanie BRAEDEN 350.1.13.10 i ty of [place] [facility] 4.2.7.2.686 [facility] [id number] [address] 2023-01-23 2023-01-23 Emergency Sandie [facility] ERT [id number] Univers 19:02:00 20:36:00 IZA [facility] 2023-01-23 2023-01-23 Emergency [facility] 1.2.000.334 [id number] Univers 19:02:00 20:36:00 Iza Apple BRAEDEN 350.1.13.10 i ty of [facility] 4.2.7.2.686 [facility] [id number] [address] 2023-01-22 2023-01-22 Emergency X [facility] ERT [id number] Univers 18:24:00 19:55:00 IZA itdeepa [facility] 2023-01-22 2023-01-22 Emergency [facility] 1.2.722.999 [id number] Univers 18:24:00 19:55:00 Iza OGLESBYRADHA 350.1.13.10 i ty of [facility] 4.2.7.2.686 [facility] [id number] [facility] 0[address] 2023-01-21 2023-01-21 Emergency X [facility] ERT [id number] Univers 14:20:00 18:14:00 [place] judge [facility] 2023-01-21 2023-01-21 Emergency [facility] 1.2.721.153 [id number] Univers 14:20:00 18:14:00 Louis OGLESBYRADHA 350.1.13.10 i ty of [place] 4.2.7.2.686 [facility] [id number] [facility] 084 Branch 2023-01-20 2023-01-20 Transition GARY Frye 1.2.840.114 [id number] Univers 00:00:00 00:00:00 of Mack SHAIKH 350.1.13.10 it y of [place] 4.2.7.2.686 [facility] [id number] [facility] 403 Branch 2023-01-19 2023-01-19 [facility] 1.2.84 0.114 [id number] Univers 01:15:00 19:40:00 Encounter Iza Varma MENDELRADHA 350.1.13.10 ity of Agapito Hackett [place] 4.2.7.2.686 [facility] [id number] [place] 037040 Branch 2023-01-17 2023-01-17 Emergency X [facility] ERT [id number] Univers 05:57:00 07:37:00 MARISOL ity [facility] 2023-01-17 2023-01-17 Emergency [facility] 1.2.535.065 [id number] Univers 05:57:00 07:37:00 Marisol OGLESBYRADHA 350.1.13.10 ity of [facility] 4.2.7.2.686 [facility] [id number] [place] [address] Branch 2023-01-17 2023-01-17 Emergency X [facility] ERT [id number] Univers 05:57:00 07:37:00 VLADISLAVDAIJA ity [facility] 2023-01-10 2023-01-10 Letter [facility] 1.2.840.114 [id number] Univers 00:00:00 00:00:00 (Out) Herminia Locomizer 350.1.13.10 it y of [place] 4.2.7.2.686 Nelson as JACKIE?BLEA [id number] [address] OFFICE [facility] 2023-01-07 2023-01-07 [facility] [id number] Univers 14:30:00 15:25:56 HERMINIA judge [facility] 2023-01-07 2023-01-07 Office [facility] 1.2.840.114 [id number] Univers 14:30:00 15:25:56 Visit Herminia Locomizer 350.1.13.10 it y of [place] 4.2.7.2.686 Nelson as JACKIE?BLEA [id number] [address] OFFICE [facility] 2022-12-26 2022-12-26 Emergency X [facility] ERT [id number] Univers 10:50:00 14:12:00 [facility] 2022-12-26 2022-12-26 Emergency [facility] 1.2.647.926 [id number] Univers 10:50:00 14:12:00 Iza S [place] 350.1.13.10 i ty of [place].2.[place] [id number] [facility] [address] [place] 2022-12-14 2022-12-14 Outpatient R NOMI MARY [facility] [id number] Univers 11:30:00 11:30:00 NOMI MARY i ty of [facility] 2022-12-14 2022-12-14 Transition GARY Frye 1.2.840.114 [id number] Univers 00:00:00 00:00:00 of Care Taylorrober GUADARRAMAY 350.1.13.10 it y [place] [id number] [facility] 403 [address] 2022-12-10 2022-12-12 Outpatient X KARRI [facility] [id number] Univers 18:49:00 14:35:00 TRAVIS ity of [facility] 2022-12-10 2022-12-12 [facility] Louis Hong [facility] 1.2.840.1 14 [id number] Univers 18:49:00 14:35:00 Encounter Dedrick Toth 350.1.13. 10 ity of Travis Zeng [place] 4.2.7.2.686 [facility] [id number] [facility] 081 Branch 2022-12-10 2022-12-10 Case Mathew [facility] 1.2.840.114 [id number] Univers 00:00:00 00:00:00 Management Nomi DERAS 350.1.13.10 ity of [place] [id number] [facility] 2022-12-10 2022-12-10 Transition GARY Caro 1.2.840.114 [id number] Univers 00:00:00 00:00:00 of Care Cecy SHAIKH 350.1.13.10 ity [place] [id number] [facility] [address] [place] 2022-12-09 2022-12-09 Orders Doctor ELDER 1.2.840.114 [id number] Univers 00:00:00 00:00:00 Only Unassigned, ASHER 350.1.13.10 ity of [place] [facility] 4.2.7.2.686 Nelson as [id number] [facility] 009 Branch 2022-12-06 2022-12-06 Transition GARY Frye 1.2.840.114 [id number] Univers 00:00:00 00:00:00 of Care Taylor B SHAIKH 350.1.13.10 it [place] [id number] [facility] 403 [address] 2022-12-02 2022-12-04 [facility] Carlo Maki [facility] 1.2.8 40.114 [id number] Univers 00:13:00 12:30:00 Encounter Beny Abi [facility] 350.1.13.10 ity of Clive Contreras 4.2.7.2.686 [facility] [id number] [facility] 110 Branch ([facility]) 2022-12-01 2022-12-01 Emergency U ERNESTO [facility] ERT [id number] Univers 05:32:00 09:08:00 [facility] Francois [facility] 2022-12-01 2022-12-01 Emergency Marisol Devlin [facility] 1.2.840 .114 [id number] Univers 05:32:00 09:08:00 Ernesto Piper BRAEDEN 350.1.13.10 ity of Krissy Powers 4.2.7.2.686 [facility] [id number] [place] 005224 Branch 2022-12-01 2022-12-01 Emergency U ERNESTO [facility] ERT [id number] Univers 05:32:00 09:08:00 [facility] BLACKMAN [facility] 2022-11-26 2022-11-28 Outpatient X DHARMESH [facility] [place] [id number] Univers 22:55:00 13:50:00 LEILANorth [facility] 2022-11-26 2022-11-28 Hospital ZulayBessei apple [facility] 1.2.840.11 [id number] Univers 22:55:00 13:50:00 Encounter María Diaz 350.1.13.10 ity of Leila Chapa 4.2.7.2.686 [facility] [id number] [place] 005220 Branch 2022-11-19 2022-11-19 Emergency [facility] ERT [id number] Univers 02:17:00 05:12:00 IZA [facility] 2022-11-19 2022-11-19 Emergency Avani [facility] 1.2.527.900 [id number] Univers 02:17:00 05:12:00 Iza DERAS 350.1.13.10 i ty of [place] 4.2.7.2.686 [facility] [id number] [facility] 084 Branch 2022-11-18 2022-11-18 Emergency [facility] ERT [id number] Univers 18:52:00 20:29:00 FRANCISCA judge [facility] 2022-11-18 2022-11-18 Emergency [facility] 1.2.840.114 [id number] Univers 18:52:00 20:29:00 Francisca DERAS 350.1.13.10 ity of [place] 4.2.7.2.6 [facility] [id number] [facility] [address] [place] 2022-11-17 2022-11-17 Telephone [facility] 1.2.424.210 [id number] Univers 00:00:00 00:00:00 Nomi DERAS 350.1.13.10 i ty of [facility] 4.2.7.2.686 [facility] PROFESSIO [phone] [place] dic[place] [id number] [facility] 2022-11-12 2022-11-12 Transition GARY Frye [id number] Univers 00:00:00 00:00:00 of Care Taylor SHAIKH 350.1.13.10 it y of [place] 4.2.7.2.[address] [place] [address] [id number] [facility] [address] 2022-11-09 2022-11-11 Inpatient X [facility] PARRISH [id number] Univers 01:32:00 13:35:00 TRAVIS judge [facility] 2022-11-09 2022-11-11 [facility] 1.2.840. [id number] Univers 01:32:00 13:35:00 Encounter Travis Zeng 350.1.13.10 ity of [place] 4.2.7.2.6 [facility] [id number] [place] 005221 [place] 2021-05-22 2021-05-22 Telephone [facility] [id number] Univers 00:00:00 00:00:00 Jeanette Deras 350.1.13.10 [place] [phone] [facility] 204 [facility] 2021-05-20 2021-05-20 [employer] Anshu Macedo [facility] 1.2.8 40.114 [id number] Univers 14:28:38 14:43:38 Visit Gokul Turner 350.1.13.10 [place] [phone] [facility] 353 [facility] 2021-05-20 2021-05-20 [facility] [id number] Univers 14:30:00 14:30:00 GOKUL ity [facility] 2021-05-20 2021-05-20 Orders Doctor ELDER 1.2.840.114 [id number] Univers 00:00:00 00:00:00 Only Unassigned, ASHER 350.1.13.10 ity of [place] [facility] 4.2.7.2.686 [place] as [phone] [address] 2021-05-20 2021-05-20 Telephone [facility] 1.2.840.114 [id number] Univers 00:00:00 00:00:00 [facility] 350.1.13.10 [place] [phone] [facility] 204 [facility] 2020-12-29 2020-12-29 Office [facility] 1.2.840.114 [id number] Univers 10:12:45 11:07:51 [facility] 350.1.13.10 [place] [phone] [facility] 204 [facility] 2020-12-29 2020-12-29 [facility] [id number] Univers 10:15:00 10:15:00 [facility] 2020-12-18 2020-12-18 Office Yue [facility] 1.2.840.114 [id number] Univers 13:36:17 14:58:35 Visit Rm, Adc Surg Spec Procedure [place] 3 50.1.13.10 [place] [phone] Ga dical nal [address] [place] [address] 2020-12-18 2020-12-18 Outpatient R YUE [facility] [id number] Univers 14:00:00 14:00:00 GOKUL ity [facility] 2020-12-16 2020-12-16 [facility] [id number] Univers 00:00:00 00:00:00 JEANETTE [facility] 2020-12-16 2020-12-16 Telephone [facility] 1.2.672.311 [id number] Univers 00:00:00 00:00:00 Jeanette Deras 350.1.13.10 [place] [phone] Ga dical nal [address] [place] [address] 2020-12-12 2020-12-12 Emergency [facility] 1.2.840.114 [id number] [facility] 11:36:00 13:42:00 Francisca Deras 350.1.13.10 [place] [phone] [address] 2020-12-12 2020-12-12 Telephone [facility] 1.2.504.158 [id number] Univers 00:00:00 00:00:00 Jeanette Deras 350.1.13.10 [place] [phone] Ga dical nal [address] [place] [address] 2020-12-08 2020-12-08 Office [facility] 1.2.840.114 [id number] Univers 13:28:10 14:09:14 Visit Jeanette Deras 350.1.13.10 [place] [phone] Ga dical nal [address] [place] [address] 2020-12-08 2020-12-08 Outpatient R VIOLETA [facility] [id number] Univers 13:30:00 13:30:00 JEANETTE judge [facility] 2020-12-08 2020-12-08 Orders Doctor ELDER 1.2.840.114 [id number] Univers 00:00:00 00:00:00 Only Unassigned, ASHER 350.1.13.10 ity of [place] [facility] 4.2.7.2.686 [place] [phone] [address] 2020-12-07 2020-12-07 Nurse ELDER ePrez 1Pavan2.840.114 [id number] Univers 00:00:00 00:00:00 Triage Herminia Apple ASHER 350.1.13.10 ity of HOSPITAL 4.2.7.2.686 [place] [phone] [address] 2020-06-19 2020-06-19 Outpatient Pepper, HCAWU SURG [id number] [facility] 13:30:00 13:30:[address] 2020-02-20 2020-02-20 Orders Doctor ELDER 1.2.840.114 [id number] 00:00:00 00:00:00 Only Unassigned, ASHER 350.1.13.10 [place] [facility] 4.2.7.2.686 [phone] 009 2020-02-20 2020-02-20 Orders Doctor FRIEDMAN 1.2.840.114 [id number] Univers 00:00:00 00:00:00 Only Unassigned, ASHER 350.1.13.10 ity of [place] [facility] 4.2.7.2.686 [place] [phone] [address] 2019-08-28 2019-08-28 Emergency X [facility] ERT [id number] Univers 08:25:33 11:54:00 HERMINIA mottdeepa [facility] 2019-08-24 2019-08-24 Emergency X [facility] ERT [id number] Univers 01:43:17 03:52:00 LOUIS mottdeepa [facility] 2019-05-03 2019-05-04 [facility] 1.2.167.607 [id number] 23:28:18 00:27:00 Ramesh Deras 350.1.13.10 [place] 4.2.7.2.686 [place] [phone] [facility] 2019-05-03 2019-05-04 Emergency Huang, [facility] 1.2.521.152 [id number] [facility] 23:28:18 00:27:00 Ramesh Deshpande Braeden 350.1.13.10 i ty of [place] 4.2.7.2.686 [facility] [place] [phone] [facility] [address] 2019-05-03 2019-05-03 Orders Doctor ELDER 1.2.840.114 [id number] [facility] 00:00:00 00:00:00 Only Unassigned, ASHER 350.1.13.10 ity of [place] [facility] 4.2.7.2.686 [facility] [phone] [facility] [address] 2019-05-03 2019-05-03 Orders Doctor ELDER 1.2.840.114 [id number] 00:00:00 00:00:00 Only Unassigned, ASHER 350.1.13.10 [place] [facility] 4.2.7.2.686 [phone] 009 Results Test Description Test Time Test Comments Results Result Comments Source GLUCOSE BEDSIDE TESTING 2023-03-19 11:23:00 Test Item Value Reference Range Interpretation Comme nts GLUCOSE BEDSIDE TESTING (test code = GLUBED) 112 MG/DL 60-99 H GLUCOSE BEDSIDE [id number] 07:35:00 Test Item Value Reference Range Interpretation Comments GLUCOSE BEDSIDE TESTING (test code 170 MG/DL 60-99 H = GLUBED) VITAMIN [id number] 15:12:00 Test Item Value Reference Range Interpretation Comments VITAMIN B12 (test code = VITB12) 738 pg/mL 239-931 N FOLIC [id number] 15:12:00 Test Item Value Reference Range Interpretation Comments FOLIC ACID (test 4.9 ng/mL REFERENCE V ALUES: code = FOLR) NORMAL: 2.76 - >20 ng/ML DEFICIENT: 1.04 - 2.79 ng/ML COMPREHENSIVE METABOLIC [id number] 11:38:00 Test Item Value Reference Range Interpretation [...] the recommended for keon for GFRby the [facility] for Adults.The GFR will not [...] TBil/ 1. 2mg/dl +0.23mg.dl +0.2 0mg/dlBuBc 3.5mg/dl Bu/0.8 mg/dl +0.25mg/dl +0.2 4mg/dlBuBc 7 mg/dl Bu/14.2mg /dl +0.38mg/dl +0.2 5mg/dlBuBc 5mg/dl Bc/0mg/d l +0.25mg/dl +0.15mg/dlBuBc 3.5mg/dl Bc/2.8mg/dl +0. 25mg/dl +0.23mg/dl SGOT/AST (test 8 UNITS/L 17-59 L code = AST) SGPT/ALT (test 10 UNITS/L 0-49 N code = ALT) ALKALINE 51 UNITS/L 38-126 N PHOSPHATASE (test code = ALKP) CBC W/AUTO [id number] 11:24:00 Test Item Value Reference Range Interpretation [...] 0.00 K/mm3 0.0-0.1 N NRBC#) ARTERIAL BLOOD [id number] 17:25:00 Test Item Value Reference Range Interpretation [...] SATA) report to and readback by MAC FRANCOIS PA by SYDAOO at 03/15/2023 4:56: 13 PM ABG DELIVERY (test N/C code = MARY) ABG TEMPERATURE (test 37.0 C See_Comment [Auto mated message] code = TEMPA) The system [employer] generated this result transmitted ref erence range: 37. The reference range was not used to int erpret this result as normal/abnormal . ABG SITE (test code = LR SITEA) ALLENS TEST (test Y CHECK code = ALLENS) FIO2 (test code = 36 % COHBGFFIO2) [id number] 12:29:00 Test Item Value Reference Range Interpretation Comments PHOSPHOROUS (test code = PHOS) 3.5 MG/DL 2.5-4.5 N ADD ON TEST? [id number] 12:29:00 Test Item Value Reference Range Interpretation Comments MAGNESIUM (test code = MAG) 1.8 MG/DL 1.6-2.3 N ADD ON TEST? YesARTERIAL BLOOD [id number] 12:26:00 Test Item Value Reference Range Interpretation [...] and readback by DR KELLI GARCIA by [email or web address] at 03/15/2023 12:12 :31 PM ABG DELIVERY [...] % 0.4-1.5 L = METHGB) VENOUS BLOOD [id number] 11:46:00 Test Item Value Reference Range Interpretation [...] % 0.4-1.5 L = METHGB) BASIC METABOLIC [id number] 07:06:00 Test Item Value Reference Range Interpretation [...] MG/DL 8.4-10.2 L CA) NT PRO-BRAIN NATRIURETIC [id number] 07:06:00 Test Item Value Reference Range Interpretation [...] or exclusion of heart failure (HF). Shelby he performance of the VITROS NT-proBN P II [...] sh ould be interpreted as indicated in e table below. ======== ======== N T-proBNP [...] ess acute HF sympto ms. For ambulatory luis ents presenting to outpatient faci lities with [...] causes* of NT-p roBNP elevation. -------- -------- [id number] 07:06:00 Test Item Value Reference Range Interpretation Comments TROPONIN-I (test code = TROPI) < 0.012 NG/ML 0.012-0.033 L - XR CHEST [id number] 06:59:00 [facility] 1960 Sex: M Patient Name: JUAN C MONGE Unit No: [id number] EXAMS: CPT CODE: [id number] XR CHEST 1V 45439 EXAMINATION: - XR CHEST 1V HISTORY: Chest pain COMPARISON: Chest x-ray performed June 19, 2020 LOCATION CODE: C3 FINDINGS: Single frontal view of the chest is submitted for evaluation. The lungs are hyperexpanded but clear. The cardiac silhouette, mediastinum and pulmonary vasculature are unremarkable. The regional osseous structures are intact. Implanted cardiac device in the left chest wall is unchanged IMPRESSION: No acute radiographic abnormality at 0659 Reported and signed by: Miroslava Cote MD CC: Melina Gannon DO Technologist: Alex Vinson (RT) Transcrpt Date/Tm/Trnsp: 03/15/2023 (0659) t.ANGELAR.[email or web address] Orig Print D/T: S: 03/15/2023 (0702) [facility] NAME: JUAN C MONGE [id number] PHYS: [place] [address] : 1960 AGE: 62 SEX: M LOC: RUCHI PHONE #: [phone] EXAM DATE: 03/15/2023 STATUS: REGER FAX #: [phone] RADIOLOGY NO: PAGE 1 Signed ReportCBC W/O [id number] 06:42:00 Test Item Value Reference Range Interpretation [...] (test code = 0.00 K/mm3 0.0-0.[address] [facility]#) TROPONIN [id number] 21:12:01 Test Item Value Reference Range Interpretation Comments TROPONIN I (test code = <=0.034 9239967191) OMAYRA (test code = OMAYRA) Reference (Normal) [...] biotin. Lab Interpretation Normal (test code = 32787-4) [facility]. METABOLIC PANEL (62230)2023-02-15 21:00:57 Test Item Value Reference Range Interpretation Comments NA (test code = 133 mmol/L 135-145 L 7662663078) K (test code = 4.5 mmol/L 3.5-5.0 8167858303) CL (test code = 90 mmol/L 98-108 L 1245701058) CO2 TOTAL (test code = 40 mmol/L 23-31 H 7923523779) AGAP (test code = 3 2-16 4072073100) BUN (test code = 25 mg/dL 7-23 H 9232239350) GLUCOSE (test code = 107 mg/dL 70-110 6578602795) CREATININE (test code = 0.88 mg/dL 0.60-1.25 7528539778) TOTAL BILI (test code = 1.6 mg/dL 0.1-1.1 H 8175107643) CALCIUM (test code = 8.9 mg/dL 8.6-10.6 2458453833) T PROTEIN (test code = 6.1 g/dL 6.3-8.2 L 4678939026) ALBUMIN (test code = 3.7 g/dL 3.5-5.0 4802500625) ALK PHOS (test code = 56 U/L 34-122 4932669123) ALTv (test code = 14 U/L 5-50 1742-6) AST(SGOT) (test code = 12 U/L 13-40 L 6882328240) eGFR (test code = 87.2 mL/min/1.73m2 0780162936) OMAYRA (test code = OMAYRA) Association of [...] tests). Lab Interpretation Abnormal (test code = 94082-2) [facility] 21:00:57 Test Item Value Reference Range Interpretation Comments MAGNESIUM (test code = 3472522028) 2.0 mg/dL 1.7-2.4 Lab Interpretation (test code = Normal 85926-3) [facility] WITH [id number] 20:53:39 Test Item Value Reference Range Interpretation Comments WBC (test code = 9.03 See_Comment [Automated 0790-2) message] The sy stem which generated this [...] RDW-SD (test code = 50.1 fL 38.5-51.6 35090-1) RDW-CV (test code = 13.6 % 12.1-15.4 788-0) PLT (test code = 223 See_Comment [Automated 777-3) message] The sy stem which generated this result transmitted reference range : 150 - 328 10*3/ ?L. The reference r pasquale was not used to interpret this result as normal/abnormal . MPV (test code = 12.1 fL 9.8-13.0 80605-3) NRBC/100 WBC (test 0.0 See_Comment [Automat ed code = 5818730873) message] The system which generated this result transmitted reference range : 0.0 - 10.0 /100 WBCs. The refer ence range was not u sed to interpret th is result as normal/abnormal . NRBC x10^3 (test code See_Comment [Auto mated = 1641515395) message] The s ystem which generated this result transmitted reference range : 10*3/?L. The reference range was not used to interpret this result as normal/abnormal . GRAN MAT (NEUT) % 72.8 % (test code = 770-8) IMM GRAN % (test code 0.90 % = 9576643306) LYMPH % (test code = 17.7 % 736-9) MONO % (test code = 7.4 % 5905-5) EOS % (test code = 0.9 % 713-8) BASO % (test code = 0.3 % 706-2) GRAN MAT x10^3(ANC) 6.57 10*3/uL 1.99-6.95 (test code = 9455451861) IMM GRAN x10^3 (test 0.08 10*3/uL 0.00-0.06 H code = 4425321349) LYMPH x10^3 (test code 1.60 10*3/uL 1.09-3.23 = 731-0) MONO x10^3 (test code 0.67 10*3/uL 0.36-1.02 = 742-7) EOS x10^3 (test code = 0.08 10*3/uL 0.06-0.53 711-2) BASO x10^3 (test code 0.03 10*3/uL 0.01-0.09 = 704-7) Lab Interpretation Abnormal (test code = 77730-3) [facility] 21 + LACTIC [id number] 20:11:20 Test Item Value Reference Range Interpretation Comments PH (test code = 7.33 7.32-7.42 6931187259) PCO2 ERVIN (test code = 75 See_Comment H [Auto mated 7873256743) message] The sy stem which generated this result transmitted reference range : 41 - 51 mmHg. The reference range was not used to interpret this result as normal/abnormal . PO2 ERVIN (test code = 20 See_Comment L [Autom ated 4250723410) message] The sy stem which generated this result transmitted reference range : 25 - 40 mmHg. The reference range was not used to interpret this result as normal/abnormal . HCO3 ERVIN (test code = 39 See_Comment H [Auto mated 6151776618) message] The sy stem which generated this result transmitted reference range : 24 - 28 mEq/L. The reference range was not used to interpret this result as normal/abnormal . AC VBE(BEAKER) (test 9.1 mEq/L code = 9277605779) THB ERVIN (test code = 15.9 g/dL 13.5-18.0 2832355472) %O2HB ERVIN (test code = 30.0 % 52.0-63.0 L 8199952792) %COHB ERVIN (test code = 4.1 % 0.0-1.5 H 7091076055) %METHB ERVIN (test code = 0.3 % 0.4-1.5 L 9638541253) VOL%O2 ERVIN (test code = 6.7 % 6.0-12.0 8016475176) NA (test code = 137 mmol/L 135-145 1128988799) K+ (test code = 4.5 mmol/L 3.5-5.0 2517985258) AC CA IONZ (test code = 4.60 mg/dL 4.50-5.30 2572517259) GLUCOSE (test code = 113 mg/dL 70-110 H 0814758826) LACTIC ACID (test code 1.65 mmol/L 0.50-2.20 = 2228482214) Lab Interpretation Abnormal (test code = 26264-7) [facility] [id number] 21:20:05 Test Item Value Reference Range Interpretation Comments TROPONIN I (test code = 0.005 ng/mL <=0.034 8250444294) OMAYRA (test code = OMAYRA) Reference (Normal) [...] biotin. Lab Interpretation Normal (test code = 96380-3) [facility]-TERMINAL [id number] 21:17:24 Test Item Value Reference Range Interpretation Comments NT-proBNP (test code = 712 pg/mL <=125 H 3258430812) OMAYRA (test code = OMAYRA) Biotin has been reported to cause a negative bias, interpret results relative to patient's use of biotin. Lab Interpretation (test Abnormal code = 42500-2) [facility] Tyler[facility]OL2023-05-15 21:13:47 ALCOHOL<10mg/dL01/31/2023 4:13 PM [facility]<10 Dewoepsf40-733 Toxic>100 Depression of MARINA PORTER>400 [facility]. METABOLIC PANEL (36440) 2023-01-31 21:10:01 Test Item Value Reference Range Interpretation Comments NA (test code = 142 mmol/L 135-145 9555236316) K (test code = 4.7 mmol/L 3.5-5.0 3419670547) CL (test code = 99 mmol/L 98-108 3106223191) CO2 TOTAL (test code = 37 mmol/L 23-31 H 1582019651) AGAP (test code = 6 2-16 8785317075) BUN (test code = 30 mg/dL 7-23 H 7911879799) GLUCOSE (test code = 100 mg/dL 70-110 4732833851) CREATININE (test code = 0.61 mg/dL 0.60-1.25 5308928436) TOTAL BILI (test code = 0.6 mg/dL 0.1-1.6 2023735635) CALCIUM (test code = 8.8 mg/dL 8.6-10.6 9891043049) T PROTEIN (test code = 5.9 g/dL 6.3-8.2 L 4288300104) ALBUMIN (test code = 3.5 g/dL 3.5-5.0 1139459809) ALK PHOS (test code = 42 U/L 34-122 3030562130) ALTv (test code = 16 U/L 5-50 1742-6) AST(SGOT) (test code = 12 U/L 13-40 L 0903276653) eGFR (test code = 133.1 mL/min/1.73m2 8814577135) OMAYRA (test code = OMAYRA) Association of [...] tests). Lab Interpretation Abnormal (test code = 37899-7) [facility] WITH [id number] 20:59:58 Test Item Value Reference Range Interpretation Comments WBC (test code = 13.02 See_Comment H [Automated 6690-2) message] The system which generated this result transmit anirudh reference range : 4.20 - 10.70 10*3/?L. The reference range was not used to interpret this result as normal/abnormal . RBC (test code = 4.09 See_Comment L [Automated 589-8) message] The system which generated this result [...] (test code = 61.6 fL 38.5-51.6 H 11177-3) RDW-CV (test code = 16.2 % 12.1-15.4 H 788-0) PLT (test code = 250 See_Comment [Automated 777-3) message] The system which generated this result transmit anirudh reference range : 150 - 328 10*3/ ?L. The reference range was not u sed to interpret th is result as normal/abnormal . MPV (test code = 10.5 fL 9.8-13.0 00521-1) NRBC/100 WBC (test 0.0 See_Comment [Automat ed code = 5136657031) message] The system which generated this result transmit anirudh reference range : 0.0 - 10.0 /100 WBCs. The reference range was not used to interpret this result as normal/abnormal . NRBC x10^3 (test code See_Comment [Auto mated = 6172605813) message] The system which generated this result transmit anirudh reference range : 10*3/?L. The reference range was not used to interpret this result as normal/abnormal . GRAN MAT (NEUT) % 90.9 % (test code = 770-8) IMM GRAN % (test code 1.20 % = 3588673035) LYMPH % (test code = 3.9 % 736-9) MONO % (test code = 3.8 % 5905-5) EOS % (test code = 0.0 % 713-8) BASO % (test code = 0.2 % 706-2) GRAN MAT x10^3(ANC) 11.83 10*3/uL 1.99-6.95 H (test code = 0847117355) IMM GRAN x10^3 (test 0.16 10*3/uL 0.00-0.06 H code = 7249291907) LYMPH x10^3 (test code 0.51 10*3/uL 1.09-3.23 L = 731-0) MONO x10^3 (test code 0.49 10*3/uL 0.36-1.02 = 742-7) EOS x10^3 (test code = 0.06-0.53 L 711-2) BASO x10^3 (test code 0.03 10*3/uL 0.01-0.09 = 704-7) Lab Interpretation Abnormal (test code = 64110-3) [facility] [id number] 11:16:36 Test Item Value Reference Range Interpretation Comments TROPONIN I (test code = 0.002 ng/mL <=0.034 5621452186) OMAYRA (test code = OMAYRA) Reference (Normal) [...] biotin. Lab Interpretation Normal (test code = 55873-8) [facility]-TERMIN[facility] [id number] 11:13:18 Test Item Value Reference Range Interpretation Comments NT-proBNP (test code = 112 pg/mL <=125 6503034151) OMAYRA (test code = OMAYRA) Biotin has been reported to cause a negative bias, interpret results relative to patient's use of biotin. Lab Interpretation (test Normal code = 12097-1) [facility] METABOLIC PANEL (NA, K, CL, CO2, GLUCOSE, BUN, CREATININE, CA)2023-01-27 11:04:56 Test Item Value Reference Range Interpretation Comments NA (test code = 136 mmol/L 135-145 2749158121) K (test code = 4.1 mmol/L 3.5-5.0 6593366507) CL (test code = 96 mmol/L 98-108 L 5327880004) CO2 TOTAL (test code = 34 mmol/L 23-31 H 1728824281) AGAP (test code = 6 2-16 0887897603) BUN (test code = 22 mg/dL 7-23 9555400440) GLUCOSE (test code = 117 mg/dL 70-110 H 0597211797) CREATININE (test code = 0.55 mg/dL 0.60-1.25 L 9253529518) CALCIUM (test code = 8.4 mg/dL 8.6-10.6 L 1156960866) eGFR (test code = 150.0 mL/min/1.73m2 8789586843) OMAYRA (test code = OMAYRA) Association of [...] tests). Lab Interpretation Abnormal (test code = 52843-5) [facility] WITH [id number] 10:38:33 Test Item Value Reference Range Interpretation Comments WBC (test code = 9.56 See_Comment [Automated 4902-2) message] The sy stem which generated this result transmitted reference range : 4.20 - 10.70 10*3/?L. The reference range was not used to interpret this result as normal/abnormal . RBC (test code = 4.31 See_Comment [Automated 906-5) message] The sy stem which generated this [...] (test code = 56.7 fL 38.5-51.6 H 20095-6) RDW-CV (test code = 15.3 % 12.1-15.4 788-0) PLT (test code = 220 See_Comment [Automated 777-3) message] The sy stem which generated this result transmitted reference range : 150 - 328 10*3/ ?L. The reference r pasquale was not used to interpret this result as normal/abnormal . MPV (test code = 10.6 fL 9.8-13.0 51079-6) NRBC/100 WBC (test 0.0 See_Comment [Automat ed code = 2318287220) message] The system which generated this result transmitted reference range : 0.0 - 10.0 /100 WBCs. The refer ence range was not u sed to interpret th is result as normal/abnormal . NRBC x10^3 (test code See_Comment [Auto mated = 0621207038) message] The s ystem which generated this result transmitted reference range : 10*3/?L. The reference range was not used to interpret this result as normal/abnormal . GRAN MAT (NEUT) % 60.0 % (test code = 770-8) IMM GRAN % (test code 0.70 % = 6039869700) LYMPH % (test code = 26.5 % 736-9) MONO % (test code = 11.4 % 5905-5) EOS % (test code = 0.9 % 713-8) BASO % (test code = 0.5 % 706-2) GRAN MAT x10^3(ANC) 5.73 10*3/uL 1.99-6.95 (test code = 2190428432) IMM GRAN x10^3 (test 0.07 10*3/uL 0.00-0.06 H code = 3796839675) LYMPH x10^3 (test code 2.53 10*3/uL 1.09-3.23 = 731-0) MONO x10^3 (test code 1.09 10*3/uL 0.36-1.02 H = 742-7) EOS x10^3 (test code = 0.09 10*3/uL 0.06-0.53 711-2) BASO x10^3 (test code 0.05 10*3/uL 0.01-0.09 = 704-7) Lab Interpretation Abnormal (test code = 99114-8) [facility], [id number] 18:51:59 Test Item Value Reference Range Interpretation Comments AMMONIA (test code = 0462315601) 9-33 L Lab Interpretation (test code = Abnormal 73036-7) [facility] ABG + LACTIC [id number] 18:40:53 Test Item Value Reference Range Interpretation Comments PH (test code = 2) 7.43 7.35-7.45 PCO2 (test code = 53 See_Comment H [Automate d 3710610498) message] The sy stem which generated this result transmitted reference range : 35 - 45 mmHg. The reference range was not used to interpret this result as normal/abnormal . PO2 (test code = 49 See_Comment L [Automated 6799901245) message] The sy stem which generated this result transmitted reference range : 80 - 100 mmHg. The reference range was not used to interpret this result as normal/abnormal . HCO3 (test code = 34 See_Comment H [Automate d 3433182267) message] The sy stem which generated this result transmitted reference range : 22 - 26 mEq/L. The reference range was not used to interpret this result as normal/abnormal . BE (test code = 7.8 See_Comment H [Automated 1909072589) message] The sy stem which generated this result transmitted reference range : -3.0 - 3.0 mEq/ L. The reference r pasquale was not used to interpret this result as normal/abnormal . LACTIC ACID (test code 0.92 mmol/L 0.50-2.20 = 0990931131) Lab Interpretation Abnormal (test code = 39242-8) [facility] TylerTroponin [id number] 18:28:26 Test Item Value Reference Range Interpretation Comments TROPONIN I (test code = 0.003 ng/mL <=0.034 6820668526) OMAYRA (test code = OMAYRA) Reference (Normal) [...] biotin. Lab Interpretation Normal (test code = 40719-9) [facility]MIN[facility] [id number] 18:25:29 Test Item Value Reference Range Interpretation Comments NT-proBNP (test code = 376 pg/mL <=125 H [id number]) OMAYRA (test code = OMAYRA) Biotin has been reported to cause a negative bias, interpret results relative to patient's use of biotin. Lab Interpretation (test Abnormal code = 07033-8) [facility] (13250)2023-01-24 18:24:03 Test Item Value Reference Range Interpretation Comments NA (test code = 135 mmol/L 135-145 [id number]) K (test code = 4.0 mmol/L 3.5-5.0 8970716779) CL (test code = 90 mmol/L 98-108 L 0314828395) CO2 TOTAL (test code = 43 mmol/L 23-31 H 1142773545) AGAP (test code = 2 2-16 8207030395) BUN (test code = 12 mg/dL 7-23 9646195310) GLUCOSE (test code = 92 mg/dL 70-110 8157021703) CREATININE (test code = 0.58 mg/dL 0.60-1.25 L 3023876831) TOTAL BILI (test code = 1.3 mg/dL 0.1-1.1 H 7719402085) CALCIUM (test code = 8.6 mg/dL 8.6-10.6 5846384520) T PROTEIN (test code = 6.0 g/dL 6.3-8.2 L 1798254483) ALBUMIN (test code = 3.6 g/dL 3.5-5.0 2545888868) ALK PHOS (test code = 52 U/L 34-122 5220795348) ALTv (test code = 17 U/L 5-50 1742-6) AST(SGOT) (test code = 10 U/L 13-40 L 6689721383) eGFR (test code = 141.1 mL/min/1.73m2 8250650001) OMAYRA (test code = OMAYRA) Association of [...] tests). Lab Interpretation Abnormal (test code = 29398-6) [facility] 18:23:38 ALCOHOL<10mg/dL01/24/2023 1:23 PM [facility]10 Vpsfebsg42-416 Toxic>100 Depression of MARINA PORTER>400 Fatalities [facility]UnC[facility] HospitalCBC with Cpebtartvcef0103-48-46 18:09:00 Test Item Value Reference Range Interpretation [...] (test code = 59.7 fL 38.5-51.6 H 22429-6) RDW-CV (test code = 15.8 % 12.1-15.4 H 788-0) PLT (test code = 239 See_Comment [Automated 777-3) message] The sy stem which generated this result transmitted reference range : 150 - 328 10*3/ ?L. The reference r pasquale was not used to interpret this result as normal/abnormal . MPV (test code = 10.5 fL 9.8-13.0 45103-0) NRBC/100 WBC (test 0.0 See_Comment [Automat ed code = 4323823241) message] The system which generated this result transmitted reference range : 0.0 - 10.0 /100 WBCs. The refer ence range was not u sed to interpret th is result as normal/abnormal . NRBC x10^3 (test code See_Comment [Auto mated = 8412984058) message] The s ystem which generated this result transmitted reference range : 10*3/?L. The reference range was not used to interpret this result as normal/abnormal . GRAN MAT (NEUT) % 64.5 % (test code = 770-8) IMM GRAN % (test code 0.40 % = 4801757703) LYMPH % (test code = 23.1 % 736-9) MONO % (test code = 9.8 % 5905-5) EOS % (test code = 1.8 % 713-8) BASO % (test code = 0.4 % 706-2) GRAN MAT x10^3(ANC) 5.06 10*3/uL 1.99-6.95 (test code = 8407792840) IMM GRAN x10^3 (test 0.03 10*3/uL 0.00-0.06 code = 3423705437) LYMPH x10^3 (test code 1.81 10*3/uL 1.09-3.23 = 731-0) MONO x10^3 (test code 0.77 10*3/uL 0.36-1.02 = 742-7) EOS x10^3 (test code = 0.14 10*3/uL 0.06-0.53 711-2) BASO x10^3 (test code 0.03 10*3/uL 0.01-0.09 = 704-7) Lab Interpretation Abnormal (test code = 92219-2) [facility] (74654)2023-01-21 21:33:50 Test Item Value Reference Range Interpretation Comments NA (test code = 136 mmol/L 135-145 1739681986) K (test code = 4.3 mmol/L 3.5-5.0 8559246301) CL (test code = 95 mmol/L 98-108 L 7587835382) CO2 TOTAL (test code = 38 mmol/L 23-31 H 9065940286) AGAP (test code = 3 2-16 0547794163) BUN (test code = 17 mg/dL 7-23 9623907130) GLUCOSE (test code = 102 mg/dL 70-110 3930648102) CREATININE (test code = 0.62 mg/dL 0.60-1.25 1733535389) TOTAL BILI (test code = 0.8 mg/dL 0.1-1.7 5581320972) CALCIUM (test code = 7.8 mg/dL 8.6-10.6 L 5587993365) T PROTEIN (test code = 4.9 g/dL 6.3-8.2 L 8738400688) ALBUMIN (test code = 3.0 g/dL 3.5-5.0 L 3512006985) ALK PHOS (test code = 45 U/L 34-122 7935649090) ALTv (test code = 13 U/L 5-50 1742-6) AST(SGOT) (test code = 11 U/L 13-40 L 0947808643) eGFR (test code = 130.6 mL/min/1.73m2 2616826004) OMAYRA (test code = OMAYRA) Association of [...] tests). Lab Interpretation Abnormal (test code = 22321-2) [facility] TylerTROPONIN [id number] 21:11:45 Test Item Value Reference Range Interpretation Comments TROPONIN I (test code = 0.019 ng/mL <=0.034 0510974473) OMAYRA (test code = OMAYRA) Reference (Normal) [...] biotin. Lab Interpretation Normal (test code = 71379-5) [facility] TylerN-TERMINAL VJC-[id number] 21:08:47 Test Item Value Reference Range Interpretation Comments NT-proBNP (test code = 266 pg/mL <=125 H Hemol yzed 2231403752) specimen OMAYRA (test code = OMAYRA) Biotin has been reported to cause a negative bias, interpret results relative to patient's use of biotin. Lab Interpretation Abnormal (test code = 63180-4) [facility] TylerCBC WITH [id number] 20:40:24 Test Item Value Reference Range Interpretation Comments WBC (test code = 6.78 See_Comment [Automated 1562-2) message] The sy stem which generated this result transmitted reference range : 4.20 - 10.70 10*3/?L. The reference range was not used to interpret this result as normal/abnormal . RBC (test code = 4.47 See_Comment [Automated 461-2) message] The sy stem which generated this [...] (test code = 60.4 fL 38.5-51.6 H 07361-9) RDW-CV (test code = 16.2 % 12.1-15.4 H 788-0) PLT (test code = 215 See_Comment [Automated 777-3) message] The sy stem which generated this result transmitted reference range : 150 - 328 10*3/ ?L. The reference r pasquale was not used to interpret this result as normal/abnormal . MPV (test code = 10.9 fL 9.8-13.0 65926-8) NRBC/100 WBC (test 0.0 See_Comment [Automat ed code = 2269764936) message] The system which generated this result transmitted reference range : 0.0 - 10.0 /100 WBCs. The refer ence range was not u sed to interpret th is result as normal/abnormal . NRBC x10^3 (test code See_Comment [Auto mated = 6012401450) message] The s ystem which generated this result transmitted reference range : 10*3/?L. The reference range was not used to interpret this result as normal/abnormal . GRAN MAT (NEUT) % 75.4 % (test code = 770-8) IMM GRAN % (test code 0.40 % = 1474531326) LYMPH % (test code = 15.3 % 736-9) MONO % (test code = 7.7 % 5905-5) EOS % (test code = 0.9 % 713-8) BASO % (test code = 0.3 % 706-2) GRAN MAT x10^3(ANC) 5.11 10*3/uL 1.99-6.95 (test code = 0918210217) IMM GRAN x10^3 (test 0.03 10*3/uL 0.00-0.06 code = 8128112586) LYMPH x10^3 (test code 1.04 10*3/uL 1.09-3.23 L = 731-0) MONO x10^3 (test code 0.52 10*3/uL 0.36-1.02 = 742-7) EOS x10^3 (test code = 0.06 10*3/uL 0.06-0.53 711-2) BASO x10^3 (test code 0.01-0.09 = 704-7) Lab Interpretation Abnormal (test code = 16345-7) [facility] TylerN-Terminal Uxp-LGO0368-13-03 08:49:53 Test Item Value Reference Range Interpretation Comments NT-proBNP (test code = 158 pg/mL <=125 H 3453222755) OMAYRA (test code = OMAYRA) Biotin has been reported to cause a negative bias, interpret results relative to patient's use of biotin. Lab Interpretation (test Abnormal code = 34414-8) [facility] TylerD-Wknza1326-01-86 08:44:10 Test Item Value Reference Interpretation Comments Range D-DIMER (test code = See_Comment [Autom ated 7190176692) message] The system which generated this result [...] diagnosis. Lab Interpretation Normal (test code = 72696-9) [facility] METABOLIC PANEL (NA, K, CL, CO2, GLUCOSE, BUN, CREATININE, CA)2023-01-19 08:41:13 Test Item Value Reference Range Interpretation Comments NA (test code = 134 mmol/L 135-145 L 9967175606) K (test code = 5.3 mmol/L 3.5-5.0 H 7344504000) CL (test code = 91 mmol/L 98-108 L 5158254460) CO2 TOTAL (test code = 40 mmol/L 23-31 H 6067174675) AGAP (test code = 3 2-16 2164611967) BUN (test code = 14 mg/dL 7-23 9775915760) GLUCOSE (test code = 125 mg/dL 70-110 H 7449542834) CREATININE (test code = 0.64 mg/dL 0.60-1.25 5647190000) CALCIUM (test code = 8.5 mg/dL 8.6-10.6 L 9819949598) eGFR (test code = 125.9 mL/min/1.73m2 7267539672) OMAYRA (test code = OMAYRA) Association of [...] tests). Lab Interpretation Abnormal (test code = 14762-2) [facility] WITH [id number] 08:27:33 Test Item Value Reference Range Interpretation [...] (test code = 58.4 fL 38.5-51.6 H 87379-9) RDW-CV (test code = 15.9 % 12.1-15.4 H 788-0) PLT (test code = 211 See_Comment [Automated 777-3) message] The sy stem which generated this result transmitted reference range : 150 - 328 10*3/ ?L. The reference r pasquale was not used to interpret this result as normal/abnormal . MPV (test code = 10.2 fL 9.8-13.0 57296-1) NRBC/100 WBC (test 0.0 See_Comment [Automat ed code = 6058819265) message] The system which generated this result transmitted reference range : 0.0 - 10.0 /100 WBCs. The refer ence range was not u sed to interpret th is result as normal/abnormal . NRBC x10^3 (test code See_Comment [Auto mated = 7834329628) message] The s [employer] which generated this result transmitted reference range : 10*3/?L. The reference range was not used to interpret this result as normal/abnormal . GRAN MAT (NEUT) % 81.2 % (test code = 770-8) IMM GRAN % (test code 0.50 % = 3770102977) LYMPH % (test code = 10.1 % 736-9) MONO % (test code = 7.5 % 5905-5) EOS % (test code = 0.5 % 713-8) BASO % (test code = 0.2 % 706-2) GRAN MAT x10^3(ANC) 8.16 10*3/uL 1.99-6.95 H (test code = 2878142997) IMM GRAN x10^3 (test 0.05 10*3/uL 0.00-0.06 code = 2609579806) LYMPH x10^3 (test code 1.01 10*3/uL 1.09-3.23 L = 731-0) MONO x10^3 (test code 0.75 10*3/uL 0.36-1.02 = 742-7) EOS x10^3 (test code = 0.05 10*3/uL 0.06-0.53 L 711-2) BASO x10^3 (test code 0.01-0.09 = 704-7) Lab Interpretation Abnormal (test code = 29566-8) [facility] TylerNELA [id number] 12:09:33 Test Item Value Reference Range Interpretation Comments TROPONIN I (test code = 0.004 ng/mL <=0.034 9849829290) OMAYRA (test code = OMAYRA) Reference (Normal) [...] biotin. Lab Interpretation Normal (test code = 24578-2) [facility] TylerN-TERMINAL GER-[id number] 12:06:16 Test Item Value Reference Range Interpretation Comments NT-proBNP (test code = 135 pg/mL <=125 H 4276122670) OMAYRA (test code = OMAYRA) Biotin has been reported to cause a negative bias, interpret results relative to patient's use of biotin. Lab Interpretation (test Abnormal code = 83622-1) [facility]. Metabolic Panel (90887)2023-01-17 11:57:36 Test Item Value Reference Range Interpretation Comments NA (test code = 133 mmol/L 135-145 L 9902615314) K (test code = 5.0 mmol/L 3.5-5.0 5391030580) CL (test code = 91 mmol/L 98-108 L 5722723332) CO2 TOTAL (test code = 33 mmol/L 23-31 H 6971011710) AGAP (test code = 9 2-16 0313180468) BUN (test code = 10 mg/dL 7-23 5767756983) GLUCOSE (test code = 104 mg/dL 70-110 6124402170) CREATININE (test code = 0.63 mg/dL 0.60-1.25 4886134425) TOTAL BILI (test code = 1.2 mg/dL 0.1-1.1 H 6736543031) CALCIUM (test code = 9.0 mg/dL 8.6-10.6 5575228641) T PROTEIN (test code = 6.9 g/dL 6.3-8.2 1631433564) ALBUMIN (test code = 4.4 g/dL 3.5-5.0 1679522176) ALK PHOS (test code = 76 U/L 34-122 6941144917) ALTv (test code = 13 U/L 5-50 1742-6) AST(SGOT) (test code = 13 U/L 13-40 6381157642) eGFR (test code = 128.2 mL/min/1.73m2 7067034574) OMAYRA (test code = OMAYRA) Association of [...] tests). Lab Interpretation Abnormal (test code = 28219-6) [facility] with [id number] 11:30:52 Test Item Value Reference Range Interpretation Comments WBC (test code = 9.66 See_Comment [Automated 1555-2) message] The sy stem which generated this result transmitted reference range : 4.20 - 10.70 10*3/?L. The reference range was not used to interpret this result as normal/abnormal . RBC (test code = 5.00 See_Comment [Automated 914-8) message] The sy stem which generated this [...] (test code = 56.6 fL 38.5-51.6 H 80333-4) RDW-CV (test code = 15.4 % 12.1-15.4 788-0) PLT (test code = 261 See_Comment [Automated 777-3) message] The sy stem which generated this result transmitted reference range : 150 - 328 10*3/ ?L. The reference r pasquale was not used to interpret this result as normal/abnormal . MPV (test code = 10.4 fL 9.8-13.0 03831-8) NRBC/100 WBC (test 0.0 See_Comment [Automat ed code = 4726311639) message] The system which generated this result transmitted reference range : 0.0 - 10.0 /100 WBCs. The refer ence range was not u sed to interpret th is result as normal/abnormal . NRBC x10^3 (test code See_Comment [Auto mated = 8817148622) message] The s ystem which generated this result transmitted reference range : 10*3/?L. The reference range was not used to interpret this result as normal/abnormal . GRAN MAT (NEUT) % 58.9 % (test code = 770-8) IMM GRAN % (test code 0.40 % = 6919868990) LYMPH % (test code = 28.6 % 736-9) MONO % (test code = 10.5 % 5905-5) EOS % (test code = 0.9 % 713-8) BASO % (test code = 0.7 % 706-2) GRAN MAT x10^3(ANC) 5.69 10*3/uL 1.99-6.95 (test code = 9976045211) IMM GRAN x10^3 (test 0.04 10*3/uL 0.00-0.06 code = 8780688125) LYMPH x10^3 (test code 2.76 10*3/uL 1.09-3.23 = 731-0) MONO x10^3 (test code 1.01 10*3/uL 0.36-1.02 = 742-7) EOS x10^3 (test code = 0.09 10*3/uL 0.06-0.53 711-2) BASO x10^3 (test code 0.07 10*3/uL 0.01-0.09 = 704-7) Lab Interpretation Abnormal (test code = 38356-9) [facility] TylerN-[facility] ZGK-[id number] 10:20:57 Test Item Value Reference Range Interpretation Comments NT-proBNP (test code = 473 pg/mL <=125 H 2491019150) OMAYRA (test code = OMAYRA) Biotin has been reported to cause a negative bias, interpret results relative to patient's use of biotin. Lab Interpretation (test Abnormal code = 66985-1) [facility] TylerLIPID PAN[facility] (21844)(TOTAL CHOLESTEROL, TRIGLYCERIDES, HDL)2022-12-12 10:18:39 Test Item Value Reference Range Interpretation Comments CHOL (test code = 6836889107) 133 mg/dL 120-200 HDL (test code = 5931648755) 38 mg/dL >=40 L HDLC RATIO (test code = 6969187852) 3.5 <=5.0 TRIG (test code = 6728105253) 57 mg/dL 30-170 LDL CHOL (test code = 71863-4) 84 mg/dL <=160 VLDL (test code = 6070094953) 11 mg/dL 5-60 Lab Interpretation (test code = Abnormal 92725-2) [facility] TylerMAGNESIUM2023-03-26 10:18:19 Test Item Value Reference Range Interpretation Comments MAGNESIUM (test code = 5825764290) 2.0 mg/dL 1.7-2.4 Lab Interpretation (test code = Normal 97431-3) [facility] TylerBASIC MET[facility]OL[facility] (NA, K, CL, CO2, GLUCOSE, BUN, CREATININE, CA)2022-12-12 10:18:14 Test Item Value Reference Range Interpretation Comments NA (test code = 130 mmol/L 135-145 L 4240121757) K (test code = 3.7 mmol/L 3.5-5.0 9584240612) CL (test code = 89 mmol/L 98-108 L 6584541316) CO2 TOTAL (test code = 37 mmol/L 23-31 H 6763568978) AGAP (test code = 4 2-16 9234535796) BUN (test code = 13 mg/dL 7-23 0438925631) GLUCOSE (test code = 120 mg/dL 70-110 H 3103288807) CREATININE (test code = 0.56 mg/dL 0.60-1.25 L 2505609783) CALCIUM (test code = 8.3 mg/dL 8.6-10.6 L 8842248761) eGFR (test code = 146.9 mL/min/1.73m2 6001415836) OMAYRA (test code = OMAYRA) Association of [...] tests). Lab Interpretation Abnormal (test code = 09906-9) [facility]ETHANOL2023-[facility]-25 00:54:58 ALCOHOL<10mg/dL12/10/2022 7:54 PM [facility]<10 Fgooxxrb43-885 Toxic>100 Depression of MARINA PORTER>400 Fatalities ReportedUnCovenant Children[facility] HospitalTROPONIN [id number] 00:50:14 Test Item Value Reference Range Interpretation Comments TROPONIN I (test code = 0.006 ng/mL <=0.034 3953560669) OMAYRA (test code = OMAYRA) Reference (Normal) [...] biotin. Lab Interpretation Normal (test code = 63825-9) [facility] TylerN-TERMINAL RTA-[id number] 00:47:12 Test Item Value Reference Range Interpretation Comments NT-proBNP (test code = 291 pg/mL <=125 H 6927691673) OMAYRA (test code = OMAYRA) Biotin has been reported to cause a negative bias, interpret results relative to patient's use of biotin. Lab Interpretation (test Abnormal code = 87523-5) [facility] (00510)2022-12-11 00:41:12 Test Item Value Reference Range Interpretation Comments NA (test code = 126 mmol/L 135-145 L 3631039102) K (test code = 4.0 mmol/L 3.5-5.0 3361060823) CL (test code = 82 mmol/L 98-108 L 6129149471) CO2 TOTAL (test code = 40 mmol/L 23-31 H 2238030695) AGAP (test code = 4 2-16 1895722394) BUN (test code = 16 mg/dL 7-23 1595933340) GLUCOSE (test code = 97 mg/dL 70-110 2117952237) CREATININE (test code = 0.67 mg/dL 0.60-1.25 6183502545) TOTAL BILI (test code = 0.8 mg/dL 0.1-1.3 5664653103) CALCIUM (test code = 8.5 mg/dL 8.6-10.6 L 3214481851) T PROTEIN (test code = 5.9 g/dL 6.3-8.2 L 3109517065) ALBUMIN (test code = 3.5 g/dL 3.5-5.0 4863343005) ALK PHOS (test code = 49 U/L 34-122 3642450365) ALTv (test code = 18 U/L 5-50 1742-6) AST(SGOT) (test code = 11 U/L 13-40 L 8522508754) eGFR (test code = 119.4 mL/min/1.73m2 1459859940) OMAYRA (test code = OMAYRA) Association of [...] tests). Lab Interpretation Abnormal (test code = 17218-3) [facility] WITH [id number] 00:29:08 Test Item Value Reference Range Interpretation [...] RDW-SD (test code = 46.7 fL 38.5-51.6 67119-2) RDW-CV (test code = 13.6 % 12.1-15.4 788-0) PLT (test code = 263 See_Comment [Automated 777-3) message] The sy stem which generated this result transmitted reference range : 150 - 328 10*3/ ?L. The reference r pasquale was not used to interpret this result as normal/abnormal . MPV (test code = 9.7 fL 9.8-13.0 L 92922-4) NRBC/100 WBC (test 0.0 See_Comment [Automat ed code = 9538894505) message] The system which generated this result transmitted reference range : 0.0 - 10.0 /100 WBCs. The refer ence range was not u sed to interpret th is result as normal/abnormal . NRBC x10^3 (test code See_Comment [Auto mated = 8574445205) message] The s ystem which generated this result transmitted reference range : 10*3/?L. The reference range was not used to interpret this result as normal/abnormal . GRAN MAT (NEUT) % 71.6 % (test code = 770-8) IMM GRAN % (test code 0.90 % = 1900146116) LYMPH % (test code = 17.6 % 736-9) MONO % (test code = 8.7 % 5905-5) EOS % (test code = 1.0 % 713-8) BASO % (test code = 0.2 % 706-2) GRAN MAT x10^3(ANC) 7.27 10*3/uL 1.99-6.95 H (test code = 8423173800) IMM GRAN x10^3 (test 0.09 10*3/uL 0.00-0.06 H code = 6957170804) LYMPH x10^3 (test code 1.79 10*3/uL 1.09-3.23 = 731-0) MONO x10^3 (test code 0.88 10*3/uL 0.36-1.02 = 742-7) EOS x10^3 (test code = 0.10 10*3/uL 0.06-0.53 711-2) BASO x10^3 (test code 0.01-0.09 = 704-7) Lab Interpretation Abnormal (test code = 37785-4) [facility] TylerLact Acid Whole Vesgy3765-45-46 00:14:48 Test Item Value Reference Range Interpretation Comments LACTIC ACID (test code = 1.30 mmol/L 0.50-2.20 0103235153) Lab Interpretation (test code = Normal 80797-7) [facility] METABOLIC PANEL (NA, K, CL, CO2, GLUCOSE, BUN, CREATININE, CA)2022-12-04 11:06:33 Test Item Value Reference Range Interpretation Comments NA (test code = 123 mmol/L 135-145 L 3384521362) K (test code = 3.8 mmol/L 3.5-5.0 3717472574) CL (test code = 86 mmol/L 98-108 L 1610397109) CO2 TOTAL (test code = 36 mmol/L 23-31 H 7572119455) AGAP (test code = 1 2-16 L 1078753637) BUN (test code = 22 mg/dL 7-23 6604424279) GLUCOSE (test code = 195 mg/dL 70-110 H 7469035965) CREATININE (test code = 0.76 mg/dL 0.60-1.25 1667840620) CALCIUM (test code = 8.2 mg/dL 8.6-10.6 L 2088523949) eGFR (test code = 103.3 mL/min/1.73m2 8136781096) OMAYRA (test code = OMAYRA) Association of [...] tests). Lab Interpretation Abnormal (test code = 35739-4) [facility] WITH FAAK1281-07-10 10:54:29 Test Item Value Reference Range Interpretation Comments WBC (test code = 8.54 See_Comment [Automated 6490-2) message] The sy stem which generated this [...] RDW-SD (test code = 44.1 fL 38.5-51.6 42675-3) RDW-CV (test code = 13.6 % 12.1-15.4 788-0) PLT (test code = 247 See_Comment [Automated 777-3) message] The sy stem which generated this result transmitted reference range : 150 - 328 10*3/ ?L. The reference r pasquale was not used to interpret this result as normal/abnormal . MPV (test code = 9.5 fL 9.8-13.0 L 44248-4) NRBC/100 WBC (test 0.0 See_Comment [Automat ed code = 3509852813) message] The system which generated this result transmitted reference range : 0.0 - 10.0 /100 WBCs. The refer ence range was not u sed to interpret th is result as normal/abnormal . NRBC x10^3 (test code See_Comment [Auto mated = 8404804250) message] The s ystem which generated this result transmitted reference range : 10*3/?L. The reference range was not used to interpret this result as normal/abnormal . GRAN MAT (NEUT) % 93.0 % (test code = 770-8) IMM GRAN % (test code 0.90 % = 0176348439) LYMPH % (test code = 3.2 % 736-9) MONO % (test code = 2.9 % 5905-5) EOS % (test code = 0.0 % 713-8) BASO % (test code = 0.0 % 706-2) GRAN MAT x10^3(ANC) 7.94 10*3/uL 1.99-6.95 H (test code = 6105173983) IMM GRAN x10^3 (test 0.08 10*3/uL 0.00-0.06 H code = 7657527792) LYMPH x10^3 (test code 0.27 10*3/uL 1.09-3.23 L = 731-0) MONO x10^3 (test code 0.25 10*3/uL 0.36-1.02 L = 742-7) EOS x10^3 (test code = 0.06-0.53 L 711-2) BASO x10^3 (test code 0.01-0.09 = 704-7) Lab Interpretation Abnormal (test code = 04773-9) [facility] Metabolic Panel (NA, K, CL, CO2, GLUCOSE, BUN, CREATININE, CA)2022-12-03 10:44:53 Test Item Value Reference Range Interpretation Comments NA (test code = 126 mmol/L 135-145 L 2773790028) K (test code = 4.0 mmol/L 3.5-5.0 Slight 3208848761) hemolysis CL (test code = 89 mmol/L 98-108 L 3780746450) CO2 TOTAL (test code 32 mmol/L 23-31 H = 9711617999) AGAP (test code = 5 2-16 4554030522) BUN (test code = 15 mg/dL 7-23 Slight 3337264737) hemolysis GLUCOSE (test code = 115 mg/dL 70-110 H 3577533840) CREATININE (test code 0.63 mg/dL 0.60-1.25 = 3204734827) CALCIUM (test code = 7.7 mg/dL 8.6-10.6 L 5912644797) eGFR (test code = 128.2 mL/min/1.73m2 6531313753) OMAYRA (test code = OMAYRA) Association of [...] tests). Lab Interpretation Abnormal (test code = 13118-7) [facility] TylerMagnesium Ekoxo8070-13-33 10:44:53 Test Item Value Reference Range Interpretation Comments MAGNESIUM (test code = 3840792409) 1.6 mg/dL 1.7-2.4 L Lab Interpretation (test code = Abnormal 70769-0) [facility] with Uscvwetsifmk2316-41-06 10:39:13 Test Item Value Reference Range Interpretation Comments WBC (test code = 11.40 See_Comment H [Automated 9433-2) message] The system which generated this result transmit anirudh reference range : 4.20 - 10.70 10*3/?L. The reference range was not used to interpret this result as normal/abnormal . RBC (test code = 4.56 See_Comment [Automated 395-9) message] The system which generated this result [...] RDW-SD (test code = 45.4 fL 38.5-51.6 97262-4) RDW-CV (test code = 13.6 % 12.1-15.4 788-0) PLT (test code = 254 See_Comment [Automated 777-3) message] The system which generated this result transmit anirudh reference range : 150 - 328 10*3/ ?L. The reference range was not u sed to interpret th is result as normal/abnormal . MPV (test code = 10.2 fL 9.8-13.0 09412-1) NRBC/100 WBC (test 0.0 See_Comment [Automat ed code = 5993601001) message] The system which generated this result transmit anirudh reference range : 0.0 - 10.0 /100 WBCs. The reference range was not used to interpret this result as normal/abnormal . NRBC x10^3 (test code See_Comment [Auto mated = 7610990836) message] The system which generated this result transmit anirudh reference range : 10*3/?L. The reference range was not used to interpret this result as normal/abnormal . GRAN MAT (NEUT) % 90.0 % (test code = 770-8) IMM GRAN % (test code 0.90 % = [id number]) LYMPH % (test code = 5.9 % 736-9) MONO % (test code = 2.8 % 5905-5) EOS % (test code = 0.2 % 713-8) BASO % (test code = 0.2 % 706-2) GRAN MAT x10^3(ANC) 10.27 10*3/uL 1.99-6.95 H (test code = 3801075581) IMM GRAN x10^3 (test 0.10 10*3/uL 0.00-0.06 H code = [id number]) LYMPH x10^3 (test code 0.67 10*3/uL 1.09-3.23 L = 731-0) MONO x10^3 (test code 0.32 10*3/uL 0.36-1.02 L = 742-7) EOS x10^3 (test code = 0.06-0.53 L 711-2) BASO x10^3 (test code 0.01-0.09 = 704-7) Lab Interpretation Abnormal (test code = 12107-5) [facility] METABOLIC PANEL (NA, K, CL, CO2, GLUCOSE, BUN, CREATININE, CA)2022-12-02 06:20:42 Test Item Value Reference Range Interpretation Comments NA (test code = 124 mmol/L 135-145 L [id number]) K (test code = 4.5 mmol/L 3.5-5.0 4068663070) CL (test code = 78 mmol/L 98-108 L 3822677399) CO2 TOTAL (test code = 37 mmol/L 23-31 H 9644212762) AGAP (test code = 9 2-16 7806524156) BUN (test code = 14 mg/dL 7-23 9318370025) GLUCOSE (test code = 93 mg/dL 70-110 0343857419) CREATININE (test code = 0.71 mg/dL 0.60-1.25 5295992811) CALCIUM (test code = 9.1 mg/dL 8.6-10.6 8563229977) eGFR (test code = 111.7 mL/min/1.73m2 9161488531) OMAYRA (test code = OMAYRA) Association of [...] tests). Lab Interpretation Abnormal (test code = 66302-7) [id number]32 Test Item Value Reference Range Interpretation Comments TROPONIN I (test code = 0.008 ng/mL <=0.034 [id number]) OMAYRA (test code = OMAYRA) Reference (Normal) [...] biotin. Lab Interpretation Normal (test code = 21688-9) [facility] (NA, K, CL, CO2, GLUCOSE, BUN, CREATININE, [place])2022-12-01 12:11:11 Test Item Value Reference Range Interpretation Comments NA (test code = 124 mmol/L 135-145 L 7949159514) K (test code = 4.2 mmol/L 3.5-5.0 5502383745) CL (test code = 79 mmol/L 98-108 L 3023050239) CO2 TOTAL (test code = 37 mmol/L 23-31 H 8326243984) AGAP (test code = 8 2-16 4202039059) BUN (test code = 16 mg/dL 7-23 5078517476) GLUCOSE (test code = 105 mg/dL 70-110 9311105869) CREATININE (test code = 0.67 mg/dL 0.60-1.25 0207766492) CALCIUM (test code = 8.6 mg/dL 8.6-10.6 5389158834) eGFR (test code = 119.4 mL/min/1.73m2 2161758979) OMAYRA (test code = OMAYRA) Association of [...] tests). Lab Interpretation Abnormal (test code = 55446-6) [facility] WITH [id number] 11:59:32 Test Item Value Reference Range Interpretation Comments WBC (test code = 12.17 See_Comment H [Automated 7114-2) message] The system which generated this result [...] RDW-SD (test code = 43.8 fL 38.5-51.6 67552-4) RDW-CV (test code = 13.2 % 12.1-15.4 788-0) PLT (test code = 208 See_Comment [Automated 777-3) message] The system which generated this result transmit anirudh reference range : 150 - 328 10*3/ ?L. The reference range was not u sed to interpret th is result as normal/abnormal . MPV (test code = 9.8 fL 9.8-13.0 12580-4) NRBC/100 WBC (test 0.0 See_Comment [Automat ed code = 1635211704) message] The system which generated this result transmit anirudh reference range : 0.0 - 10.0 /100 WBCs. The reference range was not used to interpret this result as normal/abnormal . NRBC x10^3 (test code See_Comment [Auto mated = 9086187076) message] The system which generated this result transmit anirudh reference range : 10*3/?L. The reference range was not used to interpret this result as normal/abnormal . GRAN MAT (NEUT) % 85.9 % (test code = 770-8) IMM GRAN % (test code 0.50 % = 6982106394) LYMPH % (test code = 6.8 % 736-9) MONO % (test code = 6.3 % 5905-5) EOS % (test code = 0.3 % 713-8) BASO % (test code = 0.2 % 706-2) GRAN MAT x10^3(ANC) 10.44 10*3/uL 1.99-6.95 H (test code = 8160207590) IMM GRAN x10^3 (test 0.06 10*3/uL 0.00-0.06 code = 8755135241) LYMPH x10^3 (test code 0.83 10*3/uL 1.09-3.23 L = 731-0) MONO x10^3 (test code 0.77 10*3/uL 0.36-1.02 = 742-7) EOS x10^3 (test code = 0.04 10*3/uL 0.06-0.53 L 711-2) BASO x10^3 (test code 0.03 10*3/uL 0.01-0.09 = 704-7) Lab Interpretation Abnormal (test code = 90659-8) [facility] METABOLIC PANEL (NA, K, CL, CO2, GLUCOSE, BUN, CREATININE, [place])2022-11-28 17:17:23 Test Item Value Reference Range Interpretation Comments NA (test code = 120 mmol/L 135-145 L 1629506989) K (test code = 4.3 mmol/L 3.5-5.0 6593102037) CL (test code = 77 mmol/L 98-108 L 3537947707) CO2 TOTAL (test code = 40 mmol/L 23-31 H 0907278303) AGAP (test code = 3 2-16 2203509332) BUN (test code = 15 mg/dL 7-23 1051525666) GLUCOSE (test code = 151 mg/dL 70-110 H 2586251803) CREATININE (test code = 0.63 mg/dL 0.60-1.25 6109074398) CALCIUM (test code = 8.2 mg/dL 8.6-10.6 L 7468363276) eGFR (test code = 128.2 mL/min/1.73m2 9932504430) OMAYRA (test code = OMAYRA) Association of [...] tests). Lab Interpretation Abnormal (test code = 49990-1) [facility] 06:54:10 Test Item Value Reference Range Interpretation Comments MAGNESIUM (test code = 8005074884) 1.6 mg/dL 1.7-2.4 L Lab Interpretation (test code = Abnormal 18383-8) [facility] (NA, K, CL, CO2, GLUCOSE, BUN, CREATININE, [place])2022-11-28 01:29:53 Test Item Value Reference Range Interpretation Comments NA (test code = 120 mmol/L 135-145 L 7029651216) K (test code = 3.9 mmol/L 3.5-5.0 6118487507) CL (test code = 77 mmol/L 98-108 L 1761548647) CO2 TOTAL (test code = 36 mmol/L 23-31 H 1121962942) AGAP (test code = 7 2-16 9791675407) BUN (test code = 17 mg/dL 7-23 8067696145) GLUCOSE (test code = 85 mg/dL 70-110 4350553546) CREATININE (test code = 0.76 mg/dL 0.60-1.25 3121719168) CALCIUM (test code = 8.3 mg/dL 8.6-10.6 L 8369592428) eGFR (test code = 103.3 mL/min/1.73m2 4942797396) OMAYRA (test code = OMAYRA) Association of [...] tests). Lab Interpretation Abnormal (test code = 68936-9) [facility] METABOLIC PANEL (NA, K, CL, CO2, GLUCOSE, BUN, CREATININE, [place])2022-11-27 20:36:26 Test Item Value Reference Range Interpretation Comments NA (test code = 122 mmol/L 135-145 L 9274881199) K (test code = 3.9 mmol/L 3.5-5.0 5124937252) CL (test code = 79 mmol/L 98-108 L 0853609036) CO2 TOTAL (test code = 37 mmol/L 23-31 H 5788846042) AGAP (test code = 6 2-16 2817841131) BUN (test code = 17 mg/dL 7-23 3688068797) GLUCOSE (test code = 113 mg/dL 70-110 H 7663461942) CREATININE (test code = 0.78 mg/dL 0.60-1.25 3934285769) CALCIUM (test code = 7.8 mg/dL 8.6-10.6 L 3276539139) eGFR (test code = 100.2 mL/min/1.73m2 7339043554) OMAYRA (test code = OMAYRA) Association of [...] tests). Lab Interpretation Abnormal (test code = 90656-6) [facility] TylerGLYCOSYLATED HEMOGLOBIN (A1C)2022-11-27 18:21:30 Test Item Value Reference Range Interpretation Comments HGB A1C (test code = 5.9 % 4.0-5.7 H 4548-4) OMAYRA (test code = OMAYRA) Reference RangesNormal: <5.7%Prediabetes: 5.7 - 6.4%Diabetes: > 6.5% Lab Interpretation (test Abnormal code = 83401-5) [facility] TylerTROPONIN [id number] 06:12:58 Test Item Value Reference Range Interpretation Comments TROPONIN I (test code = 0.007 ng/mL <=0.034 4130362369) OMAYRA (test code = OMAYRA) Reference (Normal) [...] biotin. Lab Interpretation Normal (test code = 83023-3) [facility] TylerETHANOL2023-03-11 06:10:43 ALCOHOL<10mg/dL11/27/2022 12:10 AM [facility]<10 Sphucwex29-461 Toxic>100 Depression of MARINA PORTER>400 [facility] [id number] 06:09:37 Test Item Value Reference Range Interpretation Comments NT-proBNP (test code = 311 pg/mL <=125 H 1743993882) OMAYRA (test code = OMAYRA) Biotin has been reported to cause a negative bias, interpret results relative to patient's use of biotin. Lab Interpretation (test Abnormal code = 37529-0) [facility] TylerCOMP[facility] MET[facility]OL[facility] PAN[facility] (09098)2022-11-27 06:08:02 Test Item Value Reference Range Interpretation Comments NA (test code = 116 mmol/L 135-145 LL 9610329298) K (test code = 4.1 mmol/L 3.5-5.0 0567041423) CL (test code = 75 mmol/L 98-108 L 6620098109) CO2 TOTAL (test code = 34 mmol/L 23-31 H 7106257036) AGAP (test code = 7 2-16 3199819116) BUN (test code = 16 mg/dL 7-23 7490129396) GLUCOSE (test code = 70 mg/dL 70-110 6737551628) CREATININE (test code = 0.62 mg/dL 0.60-1.25 2535010106) TOTAL BILI (test code = 1.2 mg/dL 0.1-1.1 H 1097006284) CALCIUM (test code = 8.1 mg/dL 8.6-10.6 L 8234771230) T PROTEIN (test code = 6.3 g/dL 6.3-8.2 0147736559) ALBUMIN (test code = 3.8 g/dL 3.5-5.0 4862987756) ALK PHOS (test code = 58 U/L 34-122 9630754453) ALTv (test code = 15 U/L 5-50 1742-6) AST(SGOT) (test code = 13 U/L 13-40 4789757513) eGFR (test code = 130.6 mL/min/1.73m2 2482815970) OMAYRA (test code = OMAYRA) Association of [...] tests). Lab Interpretation Abnormal (test code = 84427-4) [facility] WITH [id number] 05:45:18 Test Item Value Reference Range Interpretation Comments WBC (test code = 9.18 See_Comment [Automated 7122-2) message] The sy stem which generated this result transmitted reference range : 4.20 - 10.70 10*3/?L. The reference range was not used to interpret this result as normal/abnormal . RBC (test code = 4.49 See_Comment [Automated 981-8) message] The sy stem which generated this [...] RDW-SD (test code = 40.1 fL 38.5-51.6 39469-9) RDW-CV (test code = 12.6 % 12.1-15.4 788-0) PLT (test code = 216 See_Comment [Automated 517-3) message] The sy stem which generated this result transmitted reference range : 150 - 328 10*3/ ?L. The reference r pasquale was not used to interpret this result as normal/abnormal . MPV (test code = 9.4 fL 9.8-13.0 L 68462-2) NRBC/100 WBC (test 0.0 See_Comment [Automat ed code = 2951291927) message] The system which generated this result transmitted reference range : 0.0 - 10.0 /100 WBCs. The refer ence range was not u sed to interpret th is result as normal/abnormal . NRBC x10^3 (test code See_Comment [Auto mated = 0255109530) message] The s ystem which generated this result transmitted reference range : 10*3/?L. The reference range was not used to interpret this result as normal/abnormal . GRAN MAT (NEUT) % 79.1 % (test code = 770-8) IMM GRAN % (test code 0.90 % = 1511283876) LYMPH % (test code = 11.8 % 736-9) MONO % (test code = 6.8 % 5905-5) EOS % (test code = 1.2 % 713-8) BASO % (test code = 0.2 % 706-2) GRAN MAT x10^3(ANC) 7.27 10*3/uL 1.99-6.95 H (test code = 3134433106) IMM GRAN x10^3 (test 0.08 10*3/uL 0.00-0.06 H code = 2334748672) LYMPH x10^3 (test code 1.08 10*3/uL 1.09-3.23 L = 731-0) MONO x10^3 (test code 0.62 10*3/uL 0.36-1.02 = 742-7) EOS x10^3 (test code = 0.11 10*3/uL 0.06-0.53 711-2) BASO x10^3 (test code 0.01-0.09 = 704-7) Lab Interpretation Abnormal (test code = 19403-7) [facility] TylerN-TERMIN[facility] [id number] 09:49:54 Test Item Value Reference Range Interpretation Comments NT-proBNP (test code = 294 pg/mL <=125 H 6107880940) OMAYRA (test code = OMAYRA) Biotin has been reported to cause a negative bias, interpret results relative to patient's use of biotin. Lab Interpretation (test Abnormal code = 48471-9) [facility] (22277)2022-11-19 09:41:52 Test Item Value Reference Range Interpretation Comments NA (test code = 120 mmol/L 135-145 L 9604629459) K (test code = 4.4 mmol/L 3.5-5.0 7404719843) CL (test code = 80 mmol/L 98-108 L 0867515779) CO2 TOTAL (test code = 34 mmol/L 23-31 H 6775578789) AGAP (test code = 6 2-16 1668291409) BUN (test code = 10 mg/dL 7-23 3151411504) GLUCOSE (test code = 93 mg/dL 70-110 2865837332) CREATININE (test code = 0.77 mg/dL 0.60-1.25 7928939729) TOTAL BILI (test code = 1.1 mg/dL 0.1-1.6 1821406362) CALCIUM (test code = 8.7 mg/dL 8.6-10.6 4870249915) T PROTEIN (test code = 6.9 g/dL 6.3-8.2 5035293877) ALBUMIN (test code = 4.1 g/dL 3.5-5.0 3594317448) ALK PHOS (test code = 60 U/L 34-122 3271801359) ALTv (test code = 14 U/L 5-50 1742-6) AST(SGOT) (test code = 13 U/L 13-40 6533674866) eGFR (test code = 101.7 mL/min/1.73m2 2422072241) OMAYRA (test code = OMAYRA) Association of [...] tests). Lab Interpretation Abnormal (test code = 80235-8) [facility] WITH [id number] 09:02:29 Test Item Value Reference Range Interpretation Comments WBC (test code = 8.30 See_Comment [Automated 7038-2) message] The sy stem which generated this result transmitted reference range : 4.20 - 10.70 10*3/?L. The reference range was not used to interpret this result as normal/abnormal . RBC (test code = 4.67 See_Comment [Automated 519-8) message] The sy stem which generated this [...] RDW-SD (test code = 42.3 fL 38.5-51.6 26523-8) RDW-CV (test code = 12.9 % 12.1-15.4 788-0) PLT (test code = 252 See_Comment [Automated 476-3) message] The sy stem which generated this result transmitted reference range : 150 - 328 10*3/ ?L. The reference r pasquale was not used to interpret this result as normal/abnormal . MPV (test code = 9.6 fL 9.8-13.0 L 37270-7) NRBC/100 WBC (test 0.0 See_Comment [Automat ed code = 1143253152) message] The system which generated this result transmitted reference range : 0.0 - 10.0 /100 WBCs. The refer ence range was not u sed to interpret th is result as normal/abnormal . NRBC x10^3 (test code See_Comment [Auto mated = 6499899560) message] The s ystem which generated this result transmitted reference range : 10*3/?L. The reference range was not used to interpret this result as normal/abnormal . GRAN MAT (NEUT) % 70.7 % (test code = 770-8) IMM GRAN % (test code 1.00 % = 8518795544) LYMPH % (test code = 16.0 % 736-9) MONO % (test code = 10.5 % 5905-5) EOS % (test code = 1.3 % 713-8) BASO % (test code = 0.5 % 706-2) GRAN MAT x10^3(ANC) 5.87 10*3/uL 1.99-6.95 (test code = 1932779572) IMM GRAN x10^3 (test 0.08 10*3/uL 0.00-0.06 H code = 1342783228) LYMPH x10^3 (test code 1.33 10*3/uL 1.09-3.23 = 731-0) MONO x10^3 (test code 0.87 10*3/uL 0.36-1.02 = 742-7) EOS x10^3 (test code = 0.11 10*3/uL 0.06-0.53 711-2) BASO x10^3 (test code 0.04 10*3/uL 0.01-0.09 = 704-7) Lab Interpretation Abnormal (test code = 48548-8) [facility] METABOLIC PANEL (NA, K, CL, CO2, GLUCOSE, BUN, CREATININE, CA)2022-11-10 23:42:55 Test Item Value Reference Range Interpretation Comments NA (test code = 121 mmol/L 135-145 L 3712016790) K (test code = 4.7 mmol/L 3.5-5.0 6428521327) CL (test code = 82 mmol/L 98-108 L 4642854018) CO2 TOTAL (test code = 34 mmol/L 23-31 H 5652447663) AGAP (test code = 5 2-16 5642658381) BUN (test code = 15 mg/dL 7-23 8322709980) GLUCOSE (test code = 120 mg/dL 70-110 H 5818302622) CREATININE (test code = 0.75 mg/dL 0.60-1.25 4103116277) CALCIUM (test code = 7.7 mg/dL 8.6-10.6 L 9208927108) eGFR (test code = 104.8 mL/min/1.73m2 8748410006) OMAYRA (test code = OMAYRA) Association of [...] tests). Lab Interpretation Abnormal (test code = 38839-0) [facility] METABOLIC PANEL (NA, K, CL, CO2, GLUCOSE, BUN, CREATININE, CA)2022-11-10 17:59:59 Test Item Value Reference Range Interpretation Comments NA (test code = 121 mmol/L 135-145 L 0705331027) K (test code = 4.3 mmol/L 3.5-5.0 0059907534) CL (test code = 81 mmol/L 98-108 L 0288393669) CO2 TOTAL (test code = 38 mmol/L 23-31 H 2190297159) AGAP (test code = 2 2-16 9894493502) BUN (test code = 15 mg/dL 7-23 8186305048) GLUCOSE (test code = 113 mg/dL 70-110 H 7641247117) CREATININE (test code = 0.74 mg/dL 0.60-1.25 2628656734) CALCIUM (test code = 7.5 mg/dL 8.6-10.6 L 3296062274) eGFR (test code = 106.5 mL/min/1.73m2 8286959786) OMAYRA (test code = OMAYRA) Association of [...] tests). Lab Interpretation Abnormal (test code = 41596-6) [facility] [id number] 13:08:23 Test Item Value Reference Range Interpretation Comments NT-proBNP (test code = 177 pg/mL <=125 H 6344122401) OMAYRA (test code = OMAYRA) Biotin has been reported to cause a negative bias, interpret results relative to patient's use of biotin. Lab Interpretation (test Abnormal code = 30946-1) [facility] TylerTROPONIN [id number] 08:23:33 Test Item Value Reference Range Interpretation Comments TROPONIN I (test code = 0.004 ng/mL <=0.034 5231193584) OMAYRA (test code = OMAYRA) Reference (Normal) [...] biotin. Lab Interpretation Normal (test code = 00490-3) [facility] (43093)2022-11-09 08:12:09 Test Item Value Reference Range Interpretation Comments NA (test code = 123 mmol/L 135-145 L 7643226321) K (test code = 4.2 mmol/L 3.5-5.0 0743644522) CL (test code = 78 mmol/L 98-108 L 6630883544) CO2 TOTAL (test code = 34 mmol/L 23-31 H 8576873605) AGAP (test code = 11 2-16 4455083066) BUN (test code = 8 mg/dL 7-23 8319080873) GLUCOSE (test code = 113 mg/dL 70-110 H 5544020164) CREATININE (test code = 0.87 mg/dL 0.60-1.25 4360569191) TOTAL BILI (test code = 1.2 mg/dL 0.1-1.1 H 6406968275) CALCIUM (test code = 8.8 mg/dL 8.6-10.6 8122411774) T PROTEIN (test code = 7.6 g/dL 6.3-8.2 4945051302) ALBUMIN (test code = 4.5 g/dL 3.5-5.0 7836747488) ALK PHOS (test code = 72 U/L 34-122 7118158221) ALTv (test code = 13 U/L 5-50 1742-6) AST(SGOT) (test code = 13 U/L 13-40 4642021611) eGFR (test code = 88.3 mL/min/1.73m2 8721595582) OMAYRA (test code = OMAYRA) Association of [...] tests). Lab Interpretation Abnormal (test code = 34682-0) [facility] TylerLIPASE, [id number] 08:11:14 Test Item Value Reference Range Interpretation Comments LIPASE (test code = 2521823720) 108 U/L 0-220 Lab Interpretation (test code = Normal 21022-1) [facility] TylerCBC WITH [id number] 07:59:28 Test Item Value Reference Range Interpretation Comments WBC (test code = 8.95 See_Comment [Automated message] 7316-2) The system [employer] generated this result transmitted ref erence range: 4.20 - 1 0.70 10*3/?L. The re ference range was not u sed to interpret this result as normal/abnor mal. RBC (test code = 5.07 See_Comment [Automated message] 179-8) The system [employer] generated this result transmitted ref erence range: [...] RDW-SD (test code 41.1 fL 38.5-51.6 = 40848-5) RDW-CV (test code 12.5 % 12.1-15.4 = 788-0) PLT (test code = 235 See_Comment [Automated message] 067-3) The system [employer] generated this result transmitted ref erence range: 150 - 32 8 10*3/?L. The re ference range was not u sed to interpret this result as normal/abnor mal. MPV (test code = 9.8 fL 9.8-13.0 77976-2) NRBC/100 WBC (test 0.0 See_Comment [Automat ed message] code = 2847685197) The syste m which generated this result transmitted ref erence range: 0.0 - 10 .0 /100 WBCs. The refer ence range was not u sed to interpret this result as normal/abnor mal. NRBC x10^3 (test See_Comment [Automated message] code = 2446446679) The syste m which generated this result transmitted ref erence range: 10*3/?L. The reference range was not used to interpr et this result as normal/abnormal . GRAN MAT (NEUT) % 56.9 % (test code = 770-8) IMM GRAN % (test 0.40 % code = 7235100903) LYMPH % (test code 29.4 % = 736-9) MONO % (test code 9.5 % = 5905-5) EOS % (test code = 3.0 % 713-8) BASO % (test code 0.8 % = 706-2) GRAN MAT 5.09 10*3/uL 1.99-6.95 x10^3(ANC) (test code = 9245781984) IMM GRAN x10^3 0.04 10*3/uL 0.00-0.06 (test code = 3535840394) LYMPH x10^3 (test 2.63 10*3/uL 1.09-3.23 code = 731-0) MONO x10^3 (test 0.85 10*3/uL 0.36-1.02 code = 742-7) EOS x10^3 (test 0.27 10*3/uL 0.06-0.53 code = 711-2) BASO x10^3 (test 0.07 10*3/uL 0.01-0.09 code = 704-7) [facility] TylerPOMD URINALYSIS, [id number] 19:05:00 Test Item Value Reference Range Interpretation [...] U APPEAR (test code = clear 3267) [facility] URINALYSIS, [id number] 19:05:00 Test Item Value Reference Range Interpretation [...] U APPEAR (test code = clear 3267) [facility] [id number] 19:05:00 Test Item Value Reference Range Interpretation [...] U APPEAR (test code = clear 3267) [facility] TylerCT ABDOMEN PELVIS W [id number] 17:53:531. ?No hydronephrosis or nephrolithiasis. 2. ?Mild [...] hernia with mild circumferential distalesophageal thickening (2:16). [place] density within the distal stomach andat the [...] hernia with mild circumferential distalesophageal thickening (2:16). [place] density within the distal stomach andat the [...] small right hydrocele.5. Additional findings as above. [facility] TylerUrinalysis2021-03-[facility] 17:37:38 Test Item Value Reference Range Interpretation Comments APPEARANCE (test code = Cloudy Clear A 2910003136) COLOR (test code = Red Yellow A 3871589127) PH (test code = 4.8-8.0 5677733935) SP GRAVITY (test code = 1.003-1.030 9330267284) GLU U QUAL (test code = 50 mg/dL Normal A 8901486570) BLOOD (test code = 3+ Negative A 9776052883) KETONES (test code = Negative Negative 5564148674) PROTEIN (test code = 100 mg/dL Negative A 2887-8) UROBILIN (test code = Normal Normal 9577406230) BILIRUBIN (test code = Negative Negative 6573482740) NITRITE (test code = Negative Negative 1843201719) LEUK DIANELYS (test code = Negative Negative 8592232900) RBC/HPF (test code = >182 See_Comment H [Autom ated message] 3811288295) The system [employer] generated this result transmit anirudh reference range : 0 - 3 HPF. The refe rence range was not u sed to interpret th is result as normal/abnormal . WBC/HPF (test code = >182 See_Comment H [Autom ated message] 3223595684) The system [employer] generated this result transmit anirudh reference range : 0 - 5 HPF. The refe rence range was not u sed to interpret th is result as normal/abnormal . BACTERIA (test code = Moderate Negative A 6490052735) WBC CLUMPS (test code = See_Comment H [Au tomated message] 7772460809) The system whic h generated this result transmit anirudh reference range : <=1 HPF. The refere nce range was not u sed to interpret th is result as normal/abnormal . Lab Interpretation (test Abnormal code = 92082-0) [facility] Metabolic Panel (NA, K, CL, CO2, GLUCOSE, BUN, CREATININE, [place])2020-12-12 17:13:57 Test Item Value Reference Range Interpretation Comments NA (test code = 140 mmol/L 135-145 2114361975) K (test code = 4.5 mmol/L 3.5-5.0 5426635453) CL (test code = 100 mmol/L 98-108 5216331085) CO2 TOTAL (test code = 35 mmol/L 23-31 H 4791345661) AGAP (test code = 2-16 2286755506) BUN (test code = 25 mg/dL 7-23 H 8313387534) GLUCOSE (test code = 114 mg/dL 70-110 H 3647309539) CREATININE (test code = 1.18 mg/dL 0.60-1.25 1571561621) CALCIUM (test code = 9.0 mg/dL 8.6-10.6 8003112922) eGFR Calculation mL/min/1.73m2 (Non-) (test code = 0806055871) eGFR Calculation mL/min/1.73m2 () (test code = 0696977850) OMAYRA (test code = OMAYRA) Association of [...] tests). Lab Interpretation Abnormal (test code = 89893-1) [facility] with Mzmtywakgube0951-27-58 16:56:10 Test Item Value Reference Range Interpretation Comments WBC (test code = See_Comment [Automated 6190-2) message] The sy stem which generated this result transmitted reference range : 4.20 - 10.70 10*3/?L. The reference range was not used to interpret this result as normal/abnormal . RBC (test code = See_Comment [Automated 359-8) message] The sy stem which generated this [...] RDW-SD (test code = 42.9 fL 38.5-51.6 66071-3) RDW-CV (test code = 11.9 % 12.1-15.4 L 788-0) PLT (test code = See_Comment [Automated 777-3) message] The sy stem which generated this result transmitted reference range : 150 - 328 10*3/ ?L. The reference r pasquale was not used to interpret this result as normal/abnormal . MPV (test code = 10.8 fL 9.8-13.0 44419-5) NRBC/100 WBC (test See_Comment [Automat ed code = 8083524437) message] The system which generated this result transmitted reference range : 0.0 - 10.0 /100 WBCs. The refer ence range was not u sed to interpret th is result as normal/abnormal . NRBC x10^3 (test code <0.01 See_Comment [Auto mated = 7232147088) message] The s ystem which generated this result transmitted reference range : 10*3/?L. The reference range was not used to interpret this result as normal/abnormal . GRAN MAT (NEUT) % 63.5 % (test code = 770-8) IMM GRAN % (test code 0.40 % = 3580460354) LYMPH % (test code = 23.9 % 736-9) MONO % (test code = 6.7 % 5905-5) EOS % (test code = 4.3 % 713-8) BASO % (test code = 1.2 % 706-2) GRAN MAT x10^3(ANC) 4.27 10*3/uL 1.99-6.95 (test code = [id number]) IMM GRAN x10^3 (test 0.03 10*3/uL 0.00-0.06 code = [id number]) LYMPH x10^3 (test code 1.61 10*3/uL 1.09-3.23 = 731-0) MONO x10^3 (test code 0.45 10*3/uL 0.36-1.02 = 742-7) EOS x10^3 (test code = 0.29 10*3/uL 0.06-0.53 711-2) BASO x10^3 (test code 0.08 10*3/uL 0.01-0.09 = 704-7) Lab Interpretation Abnormal (test code = 40363-6) [facility] [id number] 18:56:00 Test Item Value Reference Range Interpretation [...] 3267) Lab Interpretation (test code Abnormal = 23770-9) [facility], [id number] 18:56:00 Test Item Value Reference Range Interpretation [...] 3267) Lab Interpretation (test code Abnormal = 26623-8) [facility]- XR CHEST [id number] 16:22:00 Patient Name: JUAN C MONGE Unit No: [id number] EXAMS: CPT CODE: [id number] XR CHEST 1V 12794 EXAMINATION: - XR CHEST 1V. LOCATION: B2. HISTORY: S/P ICD. COMPARISON: None. TECHNIQUE: Single AP view of the chest was obtained. FINDINGS: The right lung apex is excluded from the kpakl-hc-bnbd. The heart isnormal in size. Left AICD device is present. The lungs are clear. No acute osseous abnormality is id entified. IMPRESSION: The right lung apex is excluded from the fkhtu-el-diev. No acute cardiopulmonary abnormality is identified. at 1622 Reported and signed by: Latanya Marshall MD CC: Tyrell Mckeon Technologist: JOSELYN Mathews, RT(R)Transcrpt Date/Tm/Trnsp: 06/19/2020 (1622) [email or web address] Orig Print D/T: S: 06/19/2020 (1625) [facility] WestNAME: THAOJUAN C [address] [place] PHYS: [place] [address] : 8AGE: 59 SEX: M LOC: Z.354 A PHONE #: [phone] EXAM DATE: 06/19/2020 STATUS: ADM IN FAX #: [phone] RADIOLOGY NO: PAGE 1 Signed ReportBASIC METABOLIC [id number] 13:17:00 Test Item Value Reference Range Interpretation [...] code = MG/DL 8.7-9.7 CA) Comments to [employer]: NURSE WILL BRING SPECIMEN TO LABIs this a LINE draw? N [id number] 13:17:00 Test Item Value Reference Range Interpretation Comments MAGNESIUM (test code = MAG) MG/DL 1.6-2.3 Comments to [employer]: NURSE WILL BRING SPECIMEN TO LABIs this a LINE draw? N BASIC METABOLIC [id number] 13:17:00 Test Item Value Reference Range Interpretation [...] 9.1 MG/DL 8.4-10.2 N CA) Comments to [employer]: NURSE WILL BRING SPECIMEN TO LABIs this a LINE draw? N [id number] 13:17:00 Test Item Value Reference Range Interpretation Comments MAGNESIUM (test code = MAG) 2.2 MG/DL 1.6-2.3 N Comments to [employer]: NURSE WILL BRING SPECIMEN TO LABIs this a LINE draw? N BASIC METABOLIC [id number] 13:16:00 Test Item Value Reference Range Interpretation [...] code = MG/DL 8.7-9.7 CA) Comments to [employer]: NURSE WILL BRING SPECIMEN TO LABIs this a LINE draw? N [id number] 13:16:00 Test Item Value Reference Range Interpretation Comments MAGNESIUM (test code = MAG) MG/DL 1.6-2.3 Comments to [employer]: NURSE WILL BRING SPECIMEN TO LABIs this a LINE draw? N BASIC METABOLIC [id number] 13:14:00 Test Item Value Reference Range Interpretation [...] code = CA) MG/DL 8.7-9.7 Comments to [employer]: NURSE WILL BRING SPECIMEN TO LABIs this a LINE draw? N [id number] 13:14:00 Test Item Value Reference Range Interpretation Comments MAGNESIUM (test code = MAG) MG/DL 1.6-2.3 Comments to [employer]: NURSE WILL BRING SPECIMEN TO LABIs this a LINE draw? N BASIC METABOLIC [id number] 13:13:00 Test Item Value Reference Range Interpretation [...] code = CA) MG/DL 8.7-9.7 Comments to [employer]: NURSE WILL BRING SPECIMEN TO LABIs this a LINE draw? N [id number] 13:13:00 Test Item Value Reference Range Interpretation Comments MAGNESIUM (test code = MAG) MG/DL 1.6-2.3 Comments to [employer]: NURSE WILL BRING SPECIMEN TO LABIs this a LINE draw? N PROTHROMBIN [id number] 13:08:00 Test Item Value Reference Range Interpretation Comments PROTHROMBIN TIME 12.7 SECONDS 9.4-12.5 H PATIENT (test code = PTP) INTERNATIONAL NORMAL 1.2 The INR is to be RATIO (test code = used only for INR) monitoring oral anticoagulantth erap y. INDICATION INR VALUE ---- ---- ---- -------1. Prophylaxis, de ep venous thrombos is, including high risk surgery. 2.0 - 3.0 2. Prophylaxis, deep venous thrombosis, hip surgery, treatm ent for deep venous thrombosis or pulmonary prevention of systemic emboli sm in patients wit h valvular heart disease, atrial fibrillation, tissue heart va lve, or acute myocar dial infarction. 2.0 - 3.0 3. Sports Athletic Trainer al prosthesis hear t valves, recurre nt systemic emboli sm. 3.0 - 4.5 Comments to [employer]: NURSE WILL BRING SPECIMEN TO LABPTT ACTIVATED 2020-06-19 13:08:00 Test Item Value Reference Range Interpretation Comments PTT ACTIVATED (test code = APTT) 30.8 SECONDS 25.1-36.5 N Comments to [employer]: NURSE WILL BRING SPECIMEN TO LABCBC W/AUTO [...] 0.00 K/mm3 0.0-0.1 N NRBC#) Comments to [employer]: NURSE WILL BRING SPECIMEN TO LABIs this a LINE draw? N COVID 19 Asymptomatic IH [id number] 12:14:00 Test Item Value Reference Range Interpretation [...] Notes Date/Time Note Provider Source 2023-03-20 00:11:00-00:00 [facility] ([facility]) Hospitalist Discharge Summary REPORT#:[id number] REPORT STATUS: Signed DATE:03/20/23 TIME: 0011 PATIENT: JUAN C MONGE UNIT #: [id number] [facility] AGE: 62 SEX: M ATTEND: Rudy Xiao ADM AUTHOR: Rudy Xiao MD * ALL edits or amendments must be made on the [employer]/computer document * General Information Discharge date: 03/19/23 [...] cigarette smoking or nicotine patches. PLAN - Food Technician on cessation - Cont. nicotine patch PATIENT HAS BEEN DOING WELL TODAY. VSS. AFEBRILE. BREATHING WELL ON 2 L. ECHO UNREMARKABLE. I DISCUSSED WITH DR MCKEON WHO CHANDNI D AICD INTERROGATION CAN BE DONE OUTPATIENT. HE [...] cigarette smoking or nicotine patches. PLAN - Food Technician on cessation - Cont. nicotine patch Code [...] DAILY. Comments: #60 - [facility] Start taking the following new medications: levoFLOXacin [...] normal inspection, painless ran ge of motion Neuro/MARINA PORTER: alert, normal speech Skin: dry Psychiatry: abnl [...] or < 18.5 BMI status/follow-up: nml BMI,no counselor at law needed Electronically Signed by Rudy Xiao MD on 3 at 0016 RPT #:[id number] END OF REPORT 2023-03-19 12:19:00-00:00 [facility] ([facility]) Cardiology Progress Note REPORT#:[id number] REPORT STATUS: Signed DATE:03/19/23 TIME: 1219 PATIENT: JUAN C MONGE UNIT #: [id number] ROOM/BED: [address] : 58 AGE: 62 SEX: M ATTEND: Rudy Xiao ADM AUTHOR: Tyrell Mckeon MD * ALL edits or amendments must be made on the [employer]/computer document * Subjective Chief complaint: Dyspnea Patient [...] 03/19 0900 81 19 130/66 92 99 07/01 0800 Nasal 2 cannula 03/19 0800 96 18 129/63 90 96 07/01 0735 97.7 07/ 0718 99 Nasal 5 40 cannula 03/19 0701 122 29 160/72 104 95 07/01 0600 88 19 134/60 96 07/01 0500 89 20 134/62 95 07/01 0400 91 17 139/64 98 07/01 0318 103 23 143/67 97 07/ 0100 102 21 148/86 98 07/01 0000 97.7 07 0000 101 20 152/77 [...] no edema Musculoskeletal: full range of motion Neuro/MARINA PORTER: alert, oriented X 3, CN II-XII intact [...] f/u with Dr. Tenorio as outpatient. at [address] [facility] #:[id number] END OF REPORT 2023-03-18 15:47:00-00:00 [id number] [address] PATIENT NAME: JUAN C MONGE ADMIT DATE: 03/15/23 ACCOUNT NO: [id number] ROOM NO: [facility] AGE: 62 REPORT TYPE: ECHOCARDIOGRAM SEX: M ADMITTING PHYSICIAN:Rudy Xiao MD ATTENDING PHYSICIAN:Rudy Xiao MD *[facility]* [address] [place] [address] Transthoracic Echocardiogram Patient: Juan C Monge Study Date: 03/18/2023 BP: 122 / 66 Location: [facility]SE[facility]ARLING URN: [id number] 222 : 1960 Age: 62 Height: 70 in / 177.8 cm Gender: M Weight: 149 .7 lb / 68 kg BMI/BSA: 21.5 kg/m 2 / 1.83 m 2 *Ordering Physician: * Omid Tenorio MD *Interpreting Physician: * Omid Tenorio MD *Industrial Economist: Vick Galdamez Indications: CAD. Study data: Transthoracic echocardiogram. Proced ure: Transthoracic echocardiography was performed. Images were obta ined using a [employer] cardiac ultrasound machine. Image quality was adequate. [...] cm --------- PATIENT NAME: JUAN C MONGE 222 Right ventricle Value Ref KVNG, LAX 2.4 [...] 2.46 m/sec --------- Pulmonic valve Value Ref AR v, ED 0.94 m/sec --------- Aortic root [...] at 1547 PATIENT NAME: JUAN C MONGE 222 2023-03-18 10:16:00-00:00 [facility] ([facility] Hospitalist Progress Note REPORT#:[id number] REPORT STATUS: Signed DATE:03/18/23 TIME: 1016 PATIENT: JUAN C MONGE UNIT #: [id number] [facility] AGE: 62 SEX: M ATTEND: Rudy Xiao ADM AUTHOR: Jenny Meyers MD R2 * ALL edits or amendments must be made on the el [employer]/computer document * Jenny Meyers 03/18/23 1016: Subjective Chief complaint: SOB, hypotension HPI: 62 yo M with PMH of COPD on 2L NC, Hypertension, Anxiety, Systolic CHF s/p AICD, Afib on xarelto, CVA and dementia presented as a transfer from [facility] for evaluation of shortness of breath. [...] normal inspection, painless ran ge of motion Neuro/MARINA PORTER: alert, normal speech Skin: dry Psychiatry: abnl [...] cigarette smoking or nicotine patches. PLAN - Food Technician on cessation - Cont. nicotine patch Code [...] or < 18.5 BMI status/follow-up: nml BMI,no counselor at law needed Attestations Attestation needed: teaching physician Rudy Xiao 03/18/23 1743: Attestations Teaching Physician Attestation F/U visit w/ resident: I saw the patient with the resident and . . . agree with the resident's findings and plan. echo unremarkable await aicd interrogation dvt ppx: on xarelto at 1023 Electronically Signed by Rudy Xiao MD on 3 at 1743 RPT #:[id number] END OF REPORT 2023-03-18 06:54:00-00:00 [facility] ([facility]) Cardiology Progress Note REPORT#:[id number] REPORT STATUS: Signed DATE:03/18/23 TIME: 653 PATIENT: JUAN C MONGE UNIT #: [id number] ROOM/BED: [address] : 58 AGE: 62 SEX: M ATTEND: Rudy Xiao ADM AUTHOR: Tyrell Mckeon MD * ALL edits or amendments must be made on the [employer]/computer document * Subjective Chief complaint: Dyspnea Patient [...] no edema Musculoskeletal: full range of motion Neuro/MARINA PORTER: alert, oriented X 3, CN II-XII intact [...] Oxygen support as needed. at 1220 RPT #:[id number] END OF REPORT 2023-03-17 13:48:00-00:00 [facility] ([facility] Hospitalist Progress Note REPORT#:[id number] REPORT STATUS: Signed DATE:03/17/23 TIME: 1347 PATIENT: JUAN C MONGE UNIT #: [id number] ROOM/BED: [address] : 58 AGE: 62 SEX: M ATTEND: Rudy Xiao ADM AUTHOR: Jenny Meyers MD R2 * ALL edits or amendments must be made on the [employer]/computer document * Jenny Meyers 03/17/23 1348: Subjective Chief complaint: SOB, hypotension HPI: 62 yo M with PMH of COPD on 2L NC, Hypertension, Anxiety, Systolic CHF s/p AICD, Afib on xarelto, CVA and dementia presented as a transfer from [facility] for evaluation of shortness of breath. [...] normal inspection, painless ran ge of motion Neuro/MARINA PORTER: alert, oriented X 3, normal speech Skin: [...] cigarette smoking or nicotine patches. PLAN - Food Technician on cessation - Cont. nicotine patch Code [...] or < 18.5 BMI status/follow-up: nml BMI,no counselor at law needed Attestations Attestation needed: teaching physician Rudy Xiao 03/17/23 1405: Attestations Teaching Physician Attestation F/U visit w/ resident: I saw the patient with the resident and . . . agree with the resident's findings and plan. await echo and aicd interrogation cont angelina has home o2 at 1511 Electronically Signed by Rudy Xiao MD on 3 at 0024 RPT #:[id number] END OF REPORT 2023-03-17 06:38:00-00:00 [facility] ([facility]) Cardiology Progress Note REPORT#:[id number] REPORT STATUS: Signed DATE:03/17/23 TIME: 637 PATIENT: JUAN C MONGE UNIT #: [id number] [facility] AGE: 62 SEX: M ATTEND: Rudy Xiao ADM AUTHOR: Tyrell Mckeon MD * ALL edits or amendments must be made on the [employer]/computer document * Subjective Chief complaint: Dyspnea Patient [...] no edema Musculoskeletal: full range of motion Neuro/MARINA PORTER: alert, oriented X 3, CN II-XII intact [...] (Auto) (14 - 44 %) 3.3 L Potter % (Auto) (4 - 13 %) 3.9 L Eos % (Auto) (0 - 6 %) 0.0 Baso % (Auto) (0 - 2 %) 0.1 Neut # (Auto) (2.0 - 7.6 K/mm3) 9.37 H Lymph # (Auto) (1.0 - 3.8 K/mm3) 0.33 L Potter # (Auto) (0.1 - 0.8 K/mm3) 0.40 [...] Oxygen support as needed. at 1220 RPT #:[id number] END OF REPORT 2023-03-16 20:57:00-00:00 [facility] Cardiology Progress Note REPORT#:[id number] REPORT STATUS: Signed DATE:03/16/23 TIME: 2056 PATIENT: JUAN C MONGE UNIT #: [id number] ROOM/BED: [address] : 58 AGE: 62 SEX: M ATTEND: Rudy Xiao ADM AUTHOR: Tyrell Mckeon MD * ALL edits or amendments must be made on the [employer]/computer document * Subjective Chief complaint: Dyspnea Patient [...] no edema Musculoskeletal: full range of motion Neuro/MARINA PORTER: alert, oriented X 3, CN II-XII intact [...] (Auto) (14 - 44 %) 3.3 L Potter % (Auto) (4 - 13 %) 3.9 L Eos % (Auto) (0 - 6 %) 0.0 Baso % (Auto) (0 - 2 %) 0.1 Neut # (Auto) (2.0 - 7.6 K/mm3) 9.37 H Lymph # (Auto) (1.0 - 3.8 K/mm3) 0.33 L Potter # (Auto) (0.1 - 0.8 K/mm3) 0.40 [...] Oxygen support as needed. at 0637 RPT #:[id number] END OF REPORT 2023-03-16 08:07:00-00:00 [facility] ([facility]) Hospitalist Progress Note REPORT#:[id number] REPORT STATUS: Signed DATE:03/16/23 TIME: 0807 PATIENT: JUAN C MONGE UNIT #: [id number] ROOM/BED: 347-A : 58 AGE: 62 SEX: M ATTEND: Rudy Xiao ADM AUTHOR: Jenny Meyers MD R2 * ALL edits or amendments must be made on the el [employer]/computer document * Jenny Meyers 03/16/23 0807: Subjective Chief complaint: SOB, hypotension HPI: 62 yo M with PMH of COPD on 2L NC, Hypertension, Anxiety, Systolic CHF s/p AICD, Afib on xarelto, CVA and dementia presented as a transfer from [facility] for evaluation of shortness of breath. [...] normal inspection, painless ran ge of motion Neuro/MARINA PORTER: alert, oriented X 3, normal speech Skin: [...] and decadron administered prior to arrival. Transitio charletet off BiPAP overnight and tolerating 4L via [...] cigarette smoking or nicotine patches. PLAN - Food Technician on cessation - Cont. nicotine patch Code [...] or < 18.5 BMI status/follow-up: nml BMI,no counselor at law needed Attestations Attestation needed: teaching physician Rudy Xiao 03/16/232006: Attestations Teaching Physician Attestation F/U visit w/ resident: I saw the patient with the resident and . . . agree with the resident's findings and plan. echo cards folloing aicd interrogation cont angelina has home o2 at 1416 Electronically Signed by Rudy Xiao MD on 3 at 2007 RPT #:[id number] END OF REPORT 2023-03-15 20:17:00-00:00 [id number] [place] [address] PATIENT NAME: JUAN C MONGE ADMIT DATE: 03/15/23 ACCOUNT NO: [id number] ROOM NO: Z.347 AGE: 62 REPORT TYPE: ELECTROCARDIOGRAM SEX: M ADMITTING PHYSICIAN:Rudy Xiao MD ATTENDING PHYSICIAN:Rudy Xiao MD Order: [id number] Test Reason : CAD Test Date/Time Stamp: [...] at 0734 PATIENT NAME: JUAN C MONGE 22 2023-03-15 16:03:00-00:00 [id number] [place] [id number] PATIENT NAME: JUAN C MONGE ADMIT DATE: 03/15/23 ACCOUNT NO: [id number] ROOM NO: Z.347 AGE: 62 REPORT TYPE: [...] who presented to the Emergency Room at [facility] in [facility] with complaints of increasing shortness of breath. [...] Date Transcribed: 03/15/2023 16:59:18 GSP/REQ Receipt ID: [id number] Authenticated by Tyrell Mckeon MD On 03/15/20 06:28:21 PM at 0628 PATIENT NAME: JUAN C MONGE 2023-03-15 10:52:00-00:00 [facility] ([facility]) [place] Hospitalist History Physical REPORT#:[id number] REPORT STATUS: Signed DATE:03/15/23 TIME: 1051 PATIENT: JUAN C MONGE UNIT #: [id number] [facility] AGE: 62 SEX: M ATTEND: Rudy Xiao ADM AUTHOR: Clare Velazquez * ALL edits or amendments must be made on the [employer]/computer document * Clare Velazquez 03/15/23 1052: History of Present Illness HPI Chief complaint: SOB, hypotension HPI: 62 yo M with PMH of COPD on 2L NC, Hypertension, Anxiety, Systolic CHF s/p AICD, Afib on xarelto, CVA and dementia presented as a transfer from [facility] for evaluation of shortness of breath. [...] [[employer] 1] #11 - SIG Obtained 03/15 From Strength: DrFirst 1122 TAMSULOSIN ER (FLOMAX) [...] 03/16 0900 AC (ASPIRIN EC) PO 04/15 09 Memantine 5 MG DAILY 03/16 09 AC (NAMENDA) PO 04/15 0901 Acetaminophen 500 MG Q4H PRN PRN 03/15 1005 AC (TYLENOL EXTRA PO 04/14 1006 STRENGTH TAB) Electrolytic, Caloric, And Ness Sig/Imer Start time Last Medication Dose Route Stop Time Status Admin Sodium Chloride 1,000 ML BOLUS ONCE ONE 03/15 0 745 DC 03/15 (SODIUM CHLORIDE IV 03/15 0746 [...] no muscle sp asm, no paraspinal tenderness Neuro/MARINA PORTER: alert, oriented X 3, normal speech, n [...] (Auto) (1.0 - 3.8 K/mm3) 0.51 L Potter # (Auto) (0.1 - 0.8 K/mm3) 0.10 [...] is alert and oriented x3 #Tobacco abuse counselor at law on cessation. start nicotine patch VTE ppx: [...] Current BMI: 21.6 BMI status/follow-up: nml BMI,no counselor at law needed Rudy Xiao 03/15/23 2233: Attestations Teaching Physician Attestation 1st visit w/ resident: I was present with the resident during the histo ry and exam. I discussed the case with the resident and . . . agree with the findings and plan as documented i n the resident's note. echo cards folloing aicd interrogation cont angelina has home o2 Electronically Signed by Rudy Xiao MD on 3 at 2235 Electronically Signed by Clare Velazquez on 02/18 04/10 at 2343 [facility] #:[id number] END OF REPORT 2023-03-15 07:02:00-00:00 [facility] ([facility]) EMERGENCY PROVIDER REPORT REPORT#:[id number] REPORT STATUS: Signed DATE:03/15/23 TIME: 07 PATIENT: JUAN C MONGE UNIT #: [id number] ROOM/BED: [address] AGE: 62 SEX: M PCP PHYS: Undefined Provider SERVICE AUTHOR: Royce Davison MD LOCATION: [facility] * ALL edits or amendments must be made on the [employer]/computer document * See Addendum HPI-General Illness Free Text HPI Notes Free Text HPI Notes 62-year-old female past medical history COPD, hypertension, hyperlipidemia, A- fib on Xarelto [facility] Compla ining of shortness of breath over [...] 03/15 0534 O2 Flow Rate 2 03/15 534 Last Documented: Result Date Time Pulse Ox [...] Diagnostics Lab Results Interpretation Results Laboratory Tests 03/15/23631: [Embedded Image Not Available] Laboratory Tests: 03/15 [...] (Auto) (1.0 - 3.8 K/mm3) 0.51 L Potter # (Auto) (0.1 - 0.8 K/mm3) 0.10 Eos # (Auto) (0.0 - 0.2 K/mm3) 0.00 Baso # (Auto) (0.0 - 0.2 K/mm3) 0.01 Nucleated RBCs # (Man) (0.0 - 0.1 K/mm3) 0.00 Recent Impressions: RADIOLOGY - XR CHEST 1V 03/15 0647 Report Impression - Status: SIGNED Entered: 03/15/2023 0702 IMPRESSION: No acute radiographic abnormality Impression By: [email or web address] - Miroslava Cote MD Re-Evaluation MDM Free [...] )( Accepts Hospitalization Yes )( Accepted Time 07 )( Accepted Date 03/15/23 Electronically Signed by [...] management plan; BIPAP management, evaluation of sherice madeline's response to treatment; frequent reassessment ; and, [...] Royce Davison MD on at 1918 RPT #:[id number] END OF REPORT 2020-06-20 06:17:00-00:00 [facility] ([facility]) Cardiology Progress Note REPORT#:[id number] REPORT STATUS: Signed DATE:06/20/20 TIME: 06 PATIENT: JUAN C MONGE UNIT #: [id number] ROOM/BED: 354-A : 58 AGE: 59 SEX: M ATTEND: Geoffrey Mckeon MD ADM AUTHOR: Tyrell Mckeon MD * ALL edits or amendments must be made on the [employer]/computer document * Subjective Chief Complaint: AICD Patient [...] Potassium Chloride 10 MEQ BID PO Ipratropium [place] 0.5 MG RTQ6H INH Cefazolin Sodium 1,000 [...] no edema Musculoskeletal: full range of motion Neuro/MARINA PORTER: alert, oriented X 3, CN II-XII intact [...] % (Auto) (14 - 44 %) 27.8 Potter % (Auto) (4 - 13 %) 8.6 Eos % (Auto) (0 - 6 %) 1.7 Baso % (Auto) (0 - 2 %) 0.6 Neut # (Auto) (2.0 - 7.6 K/mm3) 3.99 Lymph # (Auto) (1.0 - 3.8 K/mm3) 1.82 Potter # (Auto) (0.1 - 0.8 K/mm3) 0.56 [...] Report Impression - Status: SIGNED Entered: 06/19/2020 5115 IMPRESSION: The right lung apex is excluded from the field-o f-view. No acute cardiopulmonary abnormality is identified. Impression By: [email or web address] - Latanya Marshall MD Diagnosis, Assessment Plan Free Text DxA P Notes Free Text DxA P Notes: IMP: Chronic systolic heart failure s/p [employer] AICD - single lead PLAN: AICD interrogation d/c home if stable. at 0818 [facility] #:[id number] END OF REPORT 2020-06-19 16:03:00-00:00 [id number] [facility] [address] [place] [address] PATIENT NAME: JUAN C MONGE ADMIT DATE: 06/19/20 ACCOUNT NO: [id number] ROOM NO: [facility] AGE: 59 REPORT TYPE: OPERATIVE REPORT SEX: M ADMITTING PHYSICIAN:Tyrell Mckeon MD ATTENDING PHYSICIAN:Tyrell Mckeon MD OPERATION DATE: 06/19/2020 PROCEDURES: 1. Non-thoracotomy single lead AICD placement. 2. Defibrillation threshold testing. PREOPERATIVE DIAGNOSES: 1. 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 2. [place] [employer] class III congesti ve heart failure. POSTOPERATIVE DIAGNOSES: 1. 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 2. [place] [employer] class III congesti ve heart failure. SURGEON: Tyrell Mckeon MD DRAMA TEACHER: None. ANESTHESIA: Local anesthesia with 1% lidocaine [...] was flushed with antibiotic- containing solution. A 7-Faroese sheath was advanced over the wire and [...] DATA: 1. Pulse generator: [employer] model KD2457-51P, s erial #[id number]. 2. Right ventricular lead; [employer] model 7120Q/ 58, serial number [id number]. STIMULATION THRESHOLD DATA: Right ventricle R waves [...] Tyrell Mckeon MD WT: OP:KINGS/LUIS ANGEL/ALEX Conf#: [id number]/DID#: [id number] cc: Omid Tenorio MD Authenticated by Tyrell Mckeon MD On 06/23/20 06:02:06 AM at 0602 PATIENT NAME: JUAN C MONGE 19 2020-06-19 13:14:00-00:00 [id number] [place] [address] PATIENT NAME: JUAN C MONGE ADMIT DATE: 06/19/20 ACCOUNT NO: [id number] ROOM NO: Z.354 AGE: 59 REPORT TYPE: ELECTROCARDIOGRAM SEX: M ADMITTING PHYSICIAN:Tyrell Mckeon MD ATTENDING PHYSICIAN:Tyrell Mckeon MD Order: [id number] Test Reason : CHF Test Date/Time Stamp: [...] MD on 11/08 at 1157 PATIENT NAME: JUAN C MONGE 19
--- NOTE | 2023-04-02 09:53 | ER ---
Nurse's Notes [facility] Name: Juan C Monge Age: 62 yrs Sex: Male : 1960 Arrival Date: 04/02/2023 Time: 09:29 Bed 8 Private MD: Diagnosis: COPD/ Chronic obstructive pulmonary disease with (acute) exacerbation;Hypoxemia;Tobacco abuse counseling;Tobacco use Presentation: 04/02 09:35 Chief complaint: Patient states: Pt yelling in lobby "I can't breathe, I need some 7 oxygen", pt reports shortness of breath since this morning, hx of COPD and uses home O2, pulse ox 85% on room air. Pt denies fever, reports dry cough, denies chest pain. Coronavirus screen: Client presents with at least one sign or symptom that may indicate coronavirus-19. Ebola Screen: No symptoms or risks identified at this time. 09:35 Method Of Arrival: Wheelchair 7 09:35 Initial Sepsis Screen: Does the patient meet any 2 criteria? No. Patient's initial jl7 sepsis screen is negative. Does the patient have a suspected source of infection? No. Patient's initial sepsis screen is negative. Risk Assessment: Do you want to hurt yourself or someone else? Patient reports no desire to harm self or others. Onset of symptoms was April 02, 2023. 09:35 Acuity: JESSI 2 jl7 Triage Assessment: 09:47 General: Appears in no apparent distress. uncomfortable, Behavior is cooperative, jl7 anxious, restless. Pain: Denies pain. Respiratory: Reports shortness of breath at rest Airway is patent Respiratory effort is even, labored, Respiratory pattern is symmetrical, tachypnea Onset: The symptoms/episode began/occurred this morning, the patient has moderate shortness of breath. Historical: - Allergies: 09:47 No Known Allergies; jl7 - Home Meds: 09:47 albuterol sulfate 2.5 mg /3 mL (0.083 %) Inhl Solution for Nebulization as needed jl7 [Active]; aspirin 81 mg Oral chew 1 tab once daily [Active]; atorvastatin 40 mg Oral tablet every day at bedtime [Active]; benazepril 10 mg Oral tab 1 tab once daily [Active]; buspirone 30 mg Oral tab 1 tab 2 times per day [Active]; Coreg 25 mg Oral tab 1 tab 2 times per day [Active]; fluticasone propionate 250 mcg/actuation inhalation Blister, With Inhalation Device 2 inhalations 2 times per day [Active]; hydrochlorothiazide 25 mg Oral tab 1 tab once daily [Active]; ipratropium bromide inhalation 4 times per day [Active]; memantine 5 mg Oral tablet daily [Active]; methylprednisolone 4 mg Oral Tablet, Dose Pack per package directions [Active]; omeprazole 40 mg Oral cpDR 1 cap 2 times per day [Active]; potassium chloride 10 mEq Oral cpER 1 cap 2 times per day [Active]; - PMHx: 09:47 Atrial Fib; CVA; Hyperlipidemia; Hypertension; Myocardial infarction; skull fracture; jl7 COPD; - PSHx: 09:47 Appendectomy; defibrillator; jl7 - Immunization history:: Adult Immunizations up to date. - Social history:: Smoking status: Patient reports the use of cigarette tobacco products, smokes one-half pack cigarettes per day. - Family history:: not pertinent. Screenin:38 [facility] ED Fall Risk Assessment (Adult) History of falling in the last 3 months, ph including since admission No falls in past 3 months (0 pts) Confusion or Disorientation No (0 pts) Intoxicated or Sedated No (0 pts) Impaired Gait No (0 pts) Mobility Assist Device Used No (0 pt) Altered Elimination No (0 pt) Score/Fall Risk Level 0 - 2 = Low Risk Oriented to surroundings, Maintained a safe environment. Abuse screen: Denies threats or abuse. Denies injuries from another. Nutritional screening: No deficits noted. Tuberculosis screening: No symptoms or risk factors identified. Assessment: 10:40 General: Appears in no apparent distress. comfortable, slender, Behavior is calm, ph cooperative, appropriate for age, Denies fever. Pain: Denies pain. Neuro: Level of Consciousness is awake, alert, obeys commands, Oriented to person, place, time, situation. Cardiovascular: Reports shortness of breath, Denies chest pain, Capillary refill < 3 seconds in bilateral fingers Patient's skin is warm and dry. Rhythm is sinus rhythm. Respiratory: Reports shortness of breath at rest on exertion cough that is dry, Airway is patent Respiratory effort is even, unlabored, Respiratory pattern is regular, symmetrical, Breath sounds with wheezes in mediastinum. GI: No signs and/or symptoms were reported involving the gastrointestinal system. Derm: Skin is pink, warm \\T\\ dry. Musculoskeletal: Circulation, motion, and sensation intact. Range of motion: intact in all extremities. 11:50 Reassessment: Dr Ureña at bedside to see pt, pt states that he feels better and wishes ph to go home. Pt ambulated w/out oxygen per provider request, pt slightly tachypneic when back to room, Spo2 90% after ambulating, pt denies SOB, continues to stae that he feels better and wishes to go home. Vital Signs: 09:35 BP 142 / 94; Pulse 101; Resp 25; Temp 97; Pulse Ox 85% on R/A; Weight 58.97 kg; Height jl7 5 ft. 10 in. ; Pain 0/10; 10:40 BP 135 / 87; Pulse 82; Resp 24; Pulse Ox 96% on 2 lpm NC; ph 11:50 BP 127 / 89; Pulse 89; Resp 18; Pulse Ox 94% on 2 lpm NC; ph 13:00 BP 129 / 87; Pulse 91; Resp 22; Temp 97.6; Pulse Ox 96% on 2 lpm NC; ph 09:35 Body Mass Index 18.65 (58.97 kg, 177.8 cm) jl7 09:35 Pain Scale: Adult jl7 ED Course: 09:30 Patient arrived in ED. mr 09:33 Sam Lindsey MD is Attending Physician. belén 09:35 Olga Ramirez, RN is Primary Nurse. ph 09:47 Triage completed. jl7 09:47 Arm band placed on right wrist. jl7 09:51 Thierry Ureña is Hospitalizing Provider. belén 10:21 XRAY Chest (1 view) In Process Unspecified. EDMS 10:30 Initial lab(s) drawn, by wi, sent to lab. First set of blood cultures drawn by me, ph Second set of blood cultures drawn by wi. Inserted saline lock: 22 gauge in left forearm, using aseptic technique. Blood collected. 10:38 Patient has correct armband on for positive identification. Placed in gown. Bed in low ph position. Call light in reach. Side rails up X 1. Client placed on continuous cardiac and pulse oximetry monitoring. NIBP monitoring applied. 10:39 No provider procedures requiring assistance completed. ph 10:39 Patient admitted, IV remains in place. ph Administered Medications: 10:05 Drug: Levalbuterol Inhalation 3.75 mg Route: Inhalation; ph 10:05 Drug: Ipratropium Inhalation Aerosol 0.5 mg Route: Inhalation; ph 10:30 Follow up: Response: No adverse reaction ph 10:05 Drug: predniSONE PO 60 mg Route: PO; ph 13:00 Follow up: Response: No adverse reaction ph 10:37 Drug: MethylPrednisoLONE IVP 125 mg Route: IVP; Site: left antecubital; ph 11:00 Follow up: Response: No adverse reaction ph 10:40 Drug: Famotidine IVP 20 mg Route: IVP; Site: left forearm; ph 10:50 Follow up: Response: No adverse reaction ph 11:15 Drug: levofloxacin IVPB 500 mg Volume: 100 ml; Route: IVPB; Infused Over: 60 mins; ph Site: left forearm; 12:15 Follow up: Response: No adverse reaction; IV Status: Completed infusion ph 12:30 Drug: Levalbuterol Inhalation 2.5 mg Route: Inhalation; ph 13:00 Follow up: Response: No adverse reaction ph Medication: 10:38 VIS not applicable for this client. ph Outcome: 09:52 Decision to Hospitalize by Provider. belén 13:34 Patient left the ED. ph 13:34 Admitted to Report called to pt d/c from ER by hospitalist DR Ureña, [facility] Condition: improved Signatures: Dispatcher [employer] EDSam Estrada MD MD cha Rivera, Marika Olga Ramirez RN RN Janell Guillen RN RN jl7 Corrections: (The following items were deleted from the chart) 09:50 09:47 PMHx: COPD; jl7 jl7
--- NOTE | 2023-04-02 09:53 | EDPHYS ---
Physician Documentation [facility] Name: Juan C Monge Age: 62 yrs Sex: Male : 1960 Arrival Date: 04/02/2023 Time: 09:29 Bed 8 Private MD: ED Physician Sam Lindsey HPI: 04/02 09:45 This 62 yrs old Male presents to ER via Unassigned with complaints of belén Breathing Difficulty. 09:45 The patient has shortness of breath at rest, with light activity. Onset: The belén symptoms/episode began/occurred 2 day(s) ago. Duration: The symptoms are continuous, and are steadily getting worse. The patient's shortness of breath is aggravated by coughing, supine position, talking, walking, is alleviated by nebulizer treatment, pursed lip breathing, rest, sitting up, application of supplemental oxygen. Associated signs and symptoms: Pertinent positives: non-productive cough. Severity of symptoms: in the emergency department the symptoms have improved mildly. Historical: - Allergies: 09:47 No Known Allergies; jl7 - Home Meds: 09:47 albuterol sulfate 2.5 mg /3 mL (0.083 %) Inhl Solution for Nebulization as needed jl7 [Active]; aspirin 81 mg Oral chew 1 tab once daily [Active]; atorvastatin 40 mg Oral tablet every day at bedtime [Active]; benazepril 10 mg Oral tab 1 tab once daily [Active]; buspirone 30 mg Oral tab 1 tab 2 times per day [Active]; Coreg 25 mg Oral tab 1 tab 2 times per day [Active]; fluticasone propionate 250 mcg/actuation inhalation Blister, With Inhalation Device 2 inhalations 2 times per day [Active]; hydrochlorothiazide 25 mg Oral tab 1 tab once daily [Active]; ipratropium bromide inhalation 4 times per day [Active]; memantine 5 mg Oral tablet daily [Active]; methylprednisolone 4 mg Oral Tablet, Dose Pack per package directions [Active]; omeprazole 40 mg Oral cpDR 1 cap 2 times per day [Active]; potassium chloride 10 mEq Oral cpER 1 cap 2 times per day [Active]; - PMHx: 09:47 Atrial Fib; CVA; Hyperlipidemia; Hypertension; Myocardial infarction; skull fracture; jl7 COPD; - PSHx: 09:47 Appendectomy; defibrillator; jl7 - Immunization history:: Adult Immunizations up to date. - Social history:: Smoking status: Patient reports the use of cigarette tobacco products, smokes one-half pack cigarettes per day. - Family history:: not pertinent. ROS: 09:46 Constitutional: Negative for fever, chills, and weight loss, Eyes: Negative for injury, belén pain, redness, and discharge, ENT: Negative for injury, pain, and discharge, Neck: Negative for injury, pain, and swelling, Cardiovascular: Negative for chest pain, palpitations, and edema, Abdomen/GI: Negative for abdominal pain, nausea, vomiting, diarrhea, and constipation, Back: Negative for injury and pain, : Negative for injury, bleeding, discharge, and swelling, MS/Extremity: Negative for injury and deformity, Skin: Negative for injury, rash, and discoloration, Neuro: Negative for headache, weakness, numbness, tingling, and seizure, Psych: Negative for depression, anxiety, suicide ideation, homicidal ideation, and hallucinations, Allergy/Immunology: Negative for hives, rash, and allergies, Endocrine: Negative for neck swelling, polydipsia, polyuria, polyphagia, and marked weight changes, Hematologic/Lymphatic: Negative for swollen nodes, abnormal bleeding, and unusual bruising. 09:46 Respiratory: Positive for cough, shortness of breath, wheezing, expiratory. Exam: 09:46 Constitutional: This is a well developed, well nourished patient who is awake, alert, belén and in no acute distress. Head/Face: Normocephalic, atraumatic. Eyes: Pupils equal round and reactive to light, extra-ocular motions intact. Lids and lashes normal. Conjunctiva and sclera are non-icteric and not injected. Cornea within normal limits. Periorbital areas with no swelling, redness, or edema. ENT: Nares patent. No nasal discharge, no septal abnormalities noted. Tympanic membranes are normal and external auditory canals are clear. Oropharynx with no redness, swelling, or masses, exudates, or evidence of obstruction, uvula midline. Mucous membranes moist. Neck: Trachea midline, no thyromegaly or masses palpated, and no cervical lymphadenopathy. Supple, full range of motion without nuchal rigidity, or vertebral point tenderness. No Meningismus. Chest/axilla: Normal chest wall appearance and motion. Nontender with no deformity. No lesions are appreciated. Cardiovascular: Regular rate and rhythm with a normal S1 and S2. No gallops, murmurs, or rubs. Normal PMI, no JVD. No pulse deficits. Abdomen/GI: Soft, non-tender, with normal bowel sounds. No distension or tympany. No guarding or rebound. No evidence of tenderness throughout. Back: No spinal tenderness. No costovertebral tenderness. Full range of motion. Male : Normal genitalia with no discharge or lesions. Skin: Warm, dry with normal turgor. Normal color with no rashes, no lesions, and no evidence of cellulitis. MS/ Extremity: Pulses equal, no cyanosis. Neurovascular intact. Full, normal range of motion. Neuro: Awake and alert, GCS 15, oriented to person, place, time, and situation. Cranial nerves II-XII grossly intact. Motor strength 5/5 in all extremities. Sensory grossly intact. Cerebellar exam normal. Normal gait. Psych: Awake, alert, with orientation to person, place and time. Behavior, mood, and affect are within normal limits. 09:46 Respiratory: moderate respiratory distress is noted, Respirations: labored breathing, that is moderate, Breath sounds: decreased breath sounds, that are moderate, are located in both bases, rhonchi, that are mild, are scattered, stridor, that is mild, wheezing: expiratory is scattered. 10:42 ECG was reviewed by the Attending Physician. [facility] Vital Signs: 09:35 BP 142 / 94; Pulse 101; Resp 25; Temp 97; Pulse Ox 85% on R/A; Weight 58.97 kg; Height 7 5 ft. 10 in. ; Pain 0/10; 10:40 BP 135 / 87; Pulse 82; Resp 24; Pulse Ox 96% on 2 lpm NC; ph 11:50 BP 127 / 89; Pulse 89; Resp 18; Pulse Ox 94% on 2 lpm NC; ph 13:00 BP 129 / 87; Pulse 91; Resp 22; Temp 97.6; Pulse Ox 96% on 2 lpm NC; ph 09:35 Body Mass Index 18.65 (58.97 kg, 177.8 cm) [facility] 09:35 Pain Scale: Adult [facility] MDM: 09:34 Patient medically screened. [facility] 09:48 Differential diagnosis: Anemia Anxiety Reaction asthma, Bronchitis CHF exacerbation, belén Chronic Obstructive Pulmonary Disease pneumonia, pulmonary edema, Pulmonary Embolism reactive airway disease, Sepsis. Antibiotic administration: Levaquin given. Immunization status: Influenza vaccine: within last 5 years. Data reviewed: vital signs, nurses notes, lab test result(s), EKG, radiologic studies, plain films. Consideration of Admission/Observation Patient was admitted/placed on observation. Escalation of care including admission/observation considered. I considered the following discharge prescriptions or medication management in the emergency department Medications were administered in the Emergency Department. See MAR. Independent interpretation of the following test(s) in the Emergency Department X-Ray: My interpretation is CXR. Test considered but Not performed: CT: NO CT CHEST. Care significantly affected by the following chronic conditions: Hypertension, Chronic Obstructive Pulmonary Disease. Counseling: I had a detailed discussion with the patient and/or guardian regarding: the presence of at least one elevated blood pressure reading (>120/80) during this emergency department visit. 04/02 09:45 Order name: Basic Metabolic Panel; Complete Time: 11:53 belén 04/02 09:45 Order name: CBC with Diff; Complete Time: 11:53 04/02 09:45 Order name: LFT's; Complete Time: 11:53 04/02 09:45 Order name: Magnesium; Complete Time: 11:53 04/02 09:45 Order name: NT PRO-BNP; Complete Time: 11:53 04/02 09:45 Order name: PT-INR; Complete Time: 11:53 04/02 09:45 Order name: Troponin HS; Complete Time: 11:53 04/02 09:45 Order name: Blood Culture Adult (2) 04/02 09:45 Order name: Lactate w/ 2H reflex if indic.; Complete Time: 11:53 04/02 09:45 Order name: ABG; Complete Time: 11:53 04/02 09:45 Order name: XRAY Chest (1 view); Complete Time: 10:41 04/02 09:45 Order name: EKG; Complete Time: 09:45 04/02 09:45 Order name: Cardiac monitoring; Complete Time: 10:06 04/02 09:45 Order name: EKG - Nurse/Tech; Complete Time: 10:37 04/02 09:45 Order name: IV Saline Lock; Complete Time: 10:37 15 09:45 Order name: Labs collected and sent; Complete Time: 10: [facility] 04/02 09:45 Order name: O2 Per Protocol; Complete Time: [facility] 04/02 09:45 Order name: O2 Sat Monitoring; Complete Time: 10: [facility] EC:42 Rate is 76 beats/min. Rhythm is regular. QRS [place] is Normal. MT interval is normal. QRS belén interval is normal. QT interval is normal. No Q waves. T waves are Normal. No ST changes noted. Clinical impression: NSR w/ Non-specific ST/T Changes and No evidence of ischemia. Interpreted by me. Reviewed by me. Administered Medications: 10:05 Drug: Levalbuterol Inhalation 3.75 mg Route: Inhalation; ph 10:05 Drug: Ipratropium Inhalation Aerosol 0.5 mg Route: Inhalation; ph 10:30 Follow up: Response: No adverse reaction ph 10:05 Drug: predniSONE PO 60 mg Route: PO; ph 13:00 Follow up: Response: No adverse reaction ph 10:37 Drug: MethylPrednisoLONE IVP 125 mg Route: IVP; Site: left antecubital; ph 11:00 Follow up: Response: No adverse reaction ph 10:40 Drug: Famotidine IVP 20 mg Route: IVP; Site: left forearm; ph 10:50 Follow up: Response: No adverse reaction ph 11:15 Drug: levofloxacin IVPB 500 mg Volume: 100 ml; Route: IVPB; Infused Over: 60 mins; ph Site: left forearm; 12:15 Follow up: Response: No adverse reaction; IV Status: Completed infusion ph 12:30 Drug: Levalbuterol Inhalation 2.5 mg Route: Inhalation; ph 13:00 Follow up: Response: No adverse reaction ph Disposition Summary: 04/02/23 09:52 Hospitalization Ordered Hospitalization Status: Inpatient Admission belén Provider: Thierry Ureña cha Location: Telemetry/MedSurg (Inpatient) belén Condition: Fair belén Problem: new belén Symptoms: have improved belén Bed/Room Type: Standard belén Room Assignment: belén Diagnosis - COPD/ Chronic obstructive pulmonary disease with (acute) exacerbation belén - Hypoxemia belén - Tobacco abuse counseling belén - Tobacco use belén Forms: - Medication Reconciliation Form belén - SBAR form belén Signatures: Dispatcher [employer] Sam Reid MD MD cha Hall, Patricia RN RN Janell Crouch RN RN jl7 Corrections: (The following items were deleted from the chart) 09:50 09:47 PMHx: COPD; jl7 jl7
[2023-04-02] MEDS ORDERED: predniSONE 20 MG TAB ONE (10:03)
[2023-04-02] MEDS ORDERED: LEVALBUTEROL 1.25 MG/3 ML NEB ONE (10:03)
[2023-04-02] MEDS ORDERED: METHYLPREDNISOLONE 125 MG INJ ONE (10:03)
[2023-04-02] MEDS ORDERED: IPRATROPIUM BROM 0.5MG/2.5ML ONE (10:03)
[2023-04-02] MEDS ORDERED: FAMOTIDINE 20 MG/2 ML VIAL IV ONE (10:04)
[2023-04-02] MEDS ORDERED: Levofloxacin500mg IV 500 MG/100 ML BAG IV ONE (10:04)
--- NOTE | 2023-04-02 10:29 | RAD REPORT ---
EXAM DESCRIPTION: RAD - Chest Single View - 04/02/2023 10:19 am CLINICAL HISTORY: COPD Chest pain. COMPARISON: Chest Single View dated 03/20/2023; Chest Single View dated 03/15/2023; Chest Single View d ated 03/13/2023; Chest Single View dated 12/22/2021 FINDINGS: Portable technique limits examination quality. The lungs are emphysematous but grossly clear. The heart is normal in size. No displaced fractures.Si ngle lead pacer/ defibrillator device. IMPRESSION: COPD. The USPSTF recommends annual screening for lung cancer with low-dose CT (LDCT) in adults aged 50 to 80 years who have a 20 pack-year smoking history and currently smoke or have quit within the past 15 years.
[2023-04-02 10:45] LABS: Hematocrit 36.9 % (39.6-49.0); Lymphocytes % 12.2 % (15.3-44.8); MCV 99.2 fL (80-100); MPV 8.6 fL (7.6-11.3); RBC Red Blood Cell Count 3.72 M/uL (4.33-5.43)
[2023-04-02 10:45] LABS: Arterial Blood Carboxyhemoglob 4.4 % (0-1.5); Blood O2 Saturation 93.3 % (92-98.5)
[2023-04-02 10:55] LABS: Protime INR 1.09
[2023-04-02 11:05] LABS: Bilirubin Direct 0.2 mg/dL (0-0.2); Bilirubin Indirect, Calculated 0.7 mg/dL (0.2-0.8); Bilirubin Total 0.9 mg/dL (0.2-1.0); Potassium 4.2 mEq/L (3.5-5.1); Protein, Total 6.1 g/dL (6.4-8.2); Troponin High Sensitivity 7.3 pg/mL (<58.9)
--- NOTE | 2023-04-02 12:43 | P.SSS ---
Patient History Date of Service: 04/02/23 Reason for admission: Shortness of breath History of Present Illness: 62-year-old gentleman with a history of COPD and chronic diastolic heart failure, chronic respiratory failure recently hospitalized for COPD exacerbation with hypoxia and hypercapnia presented to the emergency department with a complaint of shortness of breath of onset early this morning. Patient states that his shortness of breath did not respond to nebulizers and inhalers at home. He was noted to be 85% on room air in the ED. Of note patient is supposed to use 2 L of oxygen by nasal cannula. Patient was given IV Solu-Medrol, bronchodilators and Pepcid with significant improvement in his symptoms. Checks x-ray did not show any acute infiltrate. Patient feels his shortness of breath is improved and he is currently at baseline. He requested to be discharged from the ED. Allergies No Known Allergies Allergy (Uncoded 03/13/18 21:55) Unknown Home Medications: Aspirin [Aspirin EC 81 MG] 81 mg PO DAILY #30 tablet. 03/14/18 Benazepril HCl [Lotensin*] 10 mg PO DAILY #30 tab 03/14/18 Albuterol Neb [Proventil 0.083% Neb Soln] 1 inh Q4H PRN 03/20/23 Atorvastatin Calcium [Lipitor] 40 mg PO BEDTIME 03/20/23 Carvedilol [Coreg] 1 tab PO BID 03/20/23 Ipratropium [place] 500 mcg Q6H 03/20/23 Memantine HCl [Namenda] 1 tab PO DAILY 03/20/23 Omeprazole [Prilosec] 1 tab PO DAILY 03/20/23 Potassium Chloride [Micro-K] 1 tab PO DAILY 03/20/23 Rivaroxaban [Xarelto*] 1 tab PO DAILY 03/20/23 Fluticasone/Umeclidin/Vilanter [Trelegy Ellipta 200-62.5-25] 1 each IH DAILY 30 Days #30 aero 03/21/23 Furosemide [Lasix*] 40 mg PO DAILY #30 tab 03/24/23 predniSONE [Prednisone*] 20 mg PO BID 5 Days #10 tab 04/02/23 - Past Medical/Surgical History Diabetic: No -: COPD -: paroxysmal A.Fib -: HTN -: Tobacco abuse -: CVA -: skull fx -: defibrilator -: Appendectomy - Family History Father -: Diabetes - Social History Alcohol use: No CD- Drugs: No Caffeine use: No Review of Systems Other: He denies any chest pain, he reports a nonproductive cough. He denied any fever. Except as documented, all other systems reviewed and negative. Physical Examination - Physical Exam General: Alert, In no apparent distress, Oriented x3 HEENT: PERRLA, Mucous membr. moist/pink, EOMI, Sclerae nonicteric Neck: Supple, JVD not distended Respiratory: Clear to auscultation bilaterally, Normal air movement Cardiovascular: No edema, Regular rate/rhythm, No murmurs Gastrointestinal: Normal bowel sounds, Soft and benign, Non-distended, No tenderness Musculoskeletal: No swelling, No tenderness Integumentary: No rashes, No cyanosis Neurological: Normal speech, Normal strength at 5/5 x4 extr, Cranial nerves 3-12 intact - Studies Laboratory Data (last 24 hrs) 04/02/23 10:30: PT 12.0, INR 1.09 04/02/23 10:30: WBC 8.40, Hgb 12.0 L, Hct 36.9 L, Plt Count 187 04/02/23 10:30: Sodium 133 L, Potassium 4.2, BUN 12, Creatinine 0.63 L, Glucose 108 H, Magnesium 2.0, Total Bilirubin 0.9, AST 5 L, ALT 21, Alkaline Phosphatase 71 - Diagnosis (Problem(s)) (1) Chronic respiratory failure with hypoxia Current Visit: Yes Status: Acute (2) COPD exacerbation Current Visit: No Status: Acute (3) Tobacco abuse Onset Date: 03/14/18 Current Visit: No Status: Acute Treatment Summary: Patient reports his respiratory symptoms have improved to baseline after ED treatment and requested for discharge from the emergency department. His oxygen saturation after ambulating in the hallway was 89% on room air. Patient is on 2 L of oxygen by nasal cannula at home and has been advised to use the oxygen all the time. He is supposed to follow-up with Dr. Li as outpatient for further evaluation and management. Patient is prescribed short course prednisone therapy. No other changes made in his home medications. - Disposition Discharge Date: 04/02/23 Disposition: ROUTINE DISCHARGE Condition: FAIR Diet: AHA Activity: Ad dione Time Spent Managing Pts Care (In Minutes): 72
[2023-04-02 13:44] VITALS: TEMP 97
[2023-04-02 13:46] VITALS: BP 135/87; O2SAT 96
--- NOTE | 2023-04-04 11:49 | EKG ---
Test Date: 2023-04-02 Test Time: 10:37:39 Economic Manager: TL MEASUREMENT RESULTS: Intervals: Rate: 76 VT: 138 QRSD: 80 QT: 372 QTc: 418 [place]: P: 84 VT: 138 QRS: 81 T: 87 INTERPRETIVE STATEMENTS: Normal sinus rhythm Normal ECG Compared to ECG 03/20/2023 13:56:06 Sinus tachycardia no longer present Atrial premature complex(es) no longer present Electronically Signed On 04-04-23 11:45:36 CDT by Ric Pandya
== END 2023-04-02 13:45 | disposition home or self-care (01) ==
LOC: ER 09:29 → ERHOLD 12:09
PROVIDERS: ADMIT Internal Medicine; ATTEND Internal Medicine
DX: J96.11 Chronic respiratory failure with hypoxia (principal); J44.1 Chronic obstructive pulmonary disease with (acute) exacerbation; I50.32 Chronic diastolic (congestive) heart failure; F17.200 Nicotine dependence, unspecified, uncomplicated
CPT/HCPCS: 87040 ×2; 85025; 80048; 36415; 83735; 85610; 80076; 83605; 84484; 83880; 71045; 82805; 99285; 36600; J7512; J7614; J7644; J2930; 93005

== ENCOUNTER 2023-04-03 04:11 | Inpatient (IN) | payer OTHER ==
--- OUTSIDE RECORDS SUMMARY | 2023-04-03 04:31 | XMS REPORT | Continuity of Care Document ---
:1960 Author Organization [facility] t Address [address] [place] [address] Care Team Providers Name Role Phone Mily Goodwin MD Primary Care Physician [phone] [place] Attending Clinician Unavailable MARELY WATTERS Attending Clinician Unavailable MARELY WATTERS Attending Clinician Unavailable Rudy Xiao Attending Clinician Unavailable CARL ORLANDO Attending Clinician Unavailable CARL ORLANDO Attending Clinician Unavailable MILY GOODWIN Attending Clinician Unavailable Doctor Unassigned, [place] Attending Clinician Unavailable Mily Goodwin MD Attending Clinician [phone] Taylor Frye RN Attending Clinician Unavailable TRAVIS [...] Type Policy Number Effective Date Expiration Date [facility] [place] [id number] 2018 MEDICARE GOLD 00:00:00 Problems Condition Condition Condition Status Onset Resolution Last Treating Co mments Source Name Details Category Date Date Treatment Clinician Date 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 02-16 it y of ion ion 00:00: [address] Branch Hypotensio Hypotensio Disease Active U [...] nivers failure failure 2- ity of 00:00: [place] [address] Medical Branch Closed Closed Disease Active 2013-09 Overview: Univer s fracture fracture 2-13 [place] ity of of zygoma of zygoma 00:00: g of this [place] 00 note Medical might be Branch different from the original. Chronic Fracture - not acute Fall Fall Disease Active 2013-09 Univers 2-12 ity of 00:00: [place] [address] Medical Branch Atrial Atrial Disease Active 2013-09 Univers fibrillati fibrillati 10-28 it y of on on 00:00: [place] [address] Medical Branch VT VT Disease Active 2013-09 Univers (ventricul (ventricul 10-28 it y of ar ar 00:00: [place] tachycardi tachycardi 00 Me dical a) a) Branch Allergies, Adverse Reactions, Alerts Allergy Allergy Status Severity Reaction(s) Onset Inactive Treating Comm ents Source Name Type Date Date Clinician No Known DA Active U 2019-09 [facility] Allergie 0-01 [facility] 00:00: [address] No Known DA Active U 2019-09 [facility] Allergie 0-01 [facility] 00:00: [address] NO KNOWN Drug Active [facility] ALLERGIE Class ity of S [place] [facility] Social History Social Habit Start Date Stop Date Quantity Comments Source History of tobacco Passive smoker Un iversity of use [place] [facility] History SDOH Social Unive rsity of [facility] Med ical Together Branch History SDOH Social Unive rsity of [facility] Medical Branch History SDOH Social Unive rsity of [facility] Medical Membership Branch History SDOH Social Unive rsity of [facility] Medical Meetings Branch Alcohol intake 2023-03-01 [...] University o f Housing Homeless 00:00:00 00:00:[address] [facility] dical Last Year Branch History SDMN 2023-02-18 2023-02-18 1 University o f Alcohol Frequency 00:00:00 00:00:00 [place] M edical Branch History SDOH Social 2023-02-18 2023-02-18 5 Unive rsity of Connections Phone 00:00:00 00:00:00 [facility] edical Branch History SDOH Social 2023-02-18 2023-02-18 7 Unive rsity of Connections Living 00:00:00 00:00:00 [place] [facility] History SDOH 2023-02-18 2023-02-18 0 University o f Physical Activity 00:00:00 00:00:00 [facility] edical DPW Branch History SDMN 2023-02-18 2023-02-18 0 University o f Physical Activity 00:00:00 00:00:00 [facility] edical MPS Branch History SDMN 2023-02-18 2023-02-18 5 University o f Financial 00:00:00 00:00:00 [place] [facility] History SDMN Food 2023-02-18 2023-02-18 1 Univers ity of Worry 00:00:00 00:00:00 [place] [facility] History SDMN Food 2023-02-18 2023-02-18 1 Univers ity of Scarcity 00:00:00 00:00:00 [place] [facility] History SDOH 2023-02-18 2023-02-18 2 University o f Transport Med 00:00:00 00:00:00 [place] Medic al Branch History SDMN 2023-02-18 2023-02-18 2 University o f Transport Non-Med 00:00:00 00:00:00 [facility] edical Branch Exposure to 2023-02-05 2023-02-15 Not sure University of SARS-CoV-2 (event) 00:00:00 15:15:00 [place] [facility] History SDMN 2022-12-02 2022-12-02 3 University o f Alcohol Std Drinks 00:00:00 00:00:00 [place] [facility] History SDOH 2022-12-02 2022-12-02 1 [...] University of 00:00:00 00:00:00 [facility] Alcohol Comment 2014-08-27 2014-08-27 8 drinks per day Uni versity of 00:00:00 00:00:00 [facility] Sex [birth year] At [birth year] Universit y of 00:00:00 00:00:00 [facility] Smoking Status Start Date Stop Date Source Smokes tobacco daily 2022-11-09 00:00:00 [facility] ity [facility] Medications Ordered Filled Start Stop Current Ordering Indication Dosage Frequency Signature Comments Components Source Medication Medication Date Date Medication? Clinician (SIG) Name Name albuterol Yes [id number] 2.5mg Inhale 3 Univers 2.5 mg /3 6-15 mL every 4 ity of mL (0.083 00:00: (four) [place] %) 00 hours. May Medical nebulizer also Branch solution nebulize one extra every 6 hours. donepeziL 5 Yes [id number] 5mg Take 1 Univers mg tablet 6-13 tablet by ity o f 00:00: mouth in [place] 00 the Medical morning. Branch memantine 5 0 Yes [id number] 5mg Take 1 Univers mg tablet 6-13 tablet by ity o f 00:00: mouth in [place] 00 the Medical morning. Branch donepeziL 5 0 Yes [id number] 5mg Take 1 Univers mg tablet 6-13 tablet by ity o f 00:00: mouth in [place] 00 the Medical morning. Branch memantine 5 2022-0 Yes [id number] 5mg Take 1 Univers mg tablet 6-13 tablet by ity o f 00:00: mouth in [place] 00 the Medical morning. Branch donepeziL 5 2022-0 Yes [id number] 5mg Take 1 Univers mg tablet 6-13 tablet by ity o f 00:00: mouth in [place] 00 the Medical morning. Branch memantine 5 2022-0 Yes [id number] 5mg Take 1 Univers mg tablet 6-13 tablet by ity o f 00:00: mouth in [place] [address] the Medical morning. Branch busPIRone 2023-0 Yes 10mg Take 1 Univer s 10 mg 6-02 tablet by ity of tablet 16:15: mouth in [place] [address] the Medical morning Branch and 1 tablet in the evening. rivaroxaban 2023-0 Yes 15mg Take 1 Univ ers 15 mg 6-02 tablet by ity of tablet 16:15: mouth in [place] [address] the Medical morning. Branch ASPIRIN 2023-0 Yes 81mg Take 81 mg Univ ers ORAL 6-02 by mouth ity of 16:15: in the [place] [address] morning. Medical tablet Branch busPIRone 2023-0 Yes 10mg Take 1 Univer s 10 mg 6-02 tablet by ity of tablet 16:15: mouth in [place] [address] the Medical morning Branch and 1 tablet in the evening. rivaroxaban 2023-0 Yes 15mg Take 1 Univ ers 15 mg 6-02 tablet by ity of tablet 16:15: mouth in [place] [address] the Medical morning. Branch ASPIRIN 2023-0 Yes 81mg Take 81 mg Univ ers ORAL 6-02 by mouth ity of 16:15: in the [place] [address] morning. Medical tablet Branch busPIRone 2023-0 Yes 10mg Take 1 Univer s 10 mg 6-02 tablet by ity of tablet 16:15: mouth in [place] [address] the Medical morning Branch and 1 tablet in the evening. rivaroxaban 2023-0 Yes 15mg Take 1 Univ ers 15 mg 6-02 tablet by ity of tablet 16:15: mouth in [place] [address] the Medical morning. Branch ASPIRIN 2023-0 Yes 81mg Take 81 mg Univ ers ORAL 6-02 by mouth ity of 16:15: in the [place] [address] morning. Medical tablet Branch busPIRone 2023-0 Yes 10mg Take 1 Univer s 10 mg 6-02 tablet by ity of tablet 16:15: mouth in [place] [address] the Medical morning Branch and 1 tablet in the evening. rivaroxaban 2023-0 Yes 15mg Take 1 Univ ers 15 mg 6-02 tablet by ity of tablet 16:15: mouth in [place] [address] the Medical morning. Branch ASPIRIN 2023-0 Yes 81mg Take 81 mg Univ ers ORAL 6-02 by mouth ity of 16:15: in the [place] [address] morning. Medical tablet Branch busPIRone 2023-0 Yes 10mg Take 1 Univer s 10 mg 6-02 tablet by ity of tablet 16:15: mouth in [place] [address] the Medical morning Branch and 1 tablet in the evening. rivaroxaban 2023-0 Yes 15mg Take 1 Univ ers 15 mg 6-02 tablet by ity of tablet 16:15: mouth in [place] [address] the Medical morning. Branch ASPIRIN 2023-0 Yes 81mg Take 81 mg Univ ers ORAL 6-02 by mouth ity of 16:15: in the [place] [address] morning. Medical tablet Branch busPIRone 2023-0 Yes 10mg Take 1 Univer s 10 mg 6-02 tablet by ity of tablet 16:15: mouth in [place] [address] the Medical morning Branch and 1 tablet in the evening. rivaroxaban 2023-0 Yes 15mg Take 1 Univ ers 15 mg 6-02 tablet by ity of tablet 16:15: mouth in [place] [address] the Medical morning. Branch ASPIRIN 3-0 Yes 81mg Take 81 mg Univ ers ORAL 6-02 by mouth ity of 16:15: in the [place] [address] morning. Medical tablet Branch busPIRone 3-0 Yes 10mg Take 1 Univer s 10 mg 6-02 tablet by ity of tablet 16:15: mouth in [place] [address] the Medical morning Branch and 1 tablet in the evening. rivaroxaban 2023-0 Yes 15mg Take 1 Univ ers 15 mg 6-02 tablet by ity of tablet 16:15: mouth in [place] [address] the Medical morning. Branch ASPIRIN 3-0 Yes 81mg Take 81 mg Univ ers ORAL 6-02 by mouth ity of 16:15: in the [place] [address] morning. Medical tablet Branch predniSONE 2023-0 2023- Yes [id number] 40mg Take 2 Univers 20 mg 6-02 06-06 tablets by ity of tablet 00:00: 04:59 mouth in [place] 00 :00 the Medical morning Branch for 3 days. predniSONE 2023-0 2023- Yes [id number] 40mg Take 2 Univers 20 mg 6-02 06-06 tablets by ity of tablet 00:00: 04:59 mouth in [place] 00 :00 the Medical morning Branch for 3 days. predniSONE 2023-0 2023- Yes [id number] 40mg Take 2 Univers 20 mg 6-02 06-06 tablets by ity of tablet 00:00: 04:59 mouth in [place] 00 :00 the Medical morning Branch for 3 days. midodrine 5 2022-0 Yes [id number] 5mg Take 1 Univers mg tablet 6-01 tablet by ity o f 00:00: mouth [place] 00 every 8 Medical (eight) Branch hours as needed (Hypotensi on SBP <95 or DBP <50). midodrine 5 2022-0 Yes [id number] 5mg Take 1 Univers mg tablet 6-01 tablet by ity o f 00:00: mouth [place] 00 every 8 Medical (eight) Branch hours as needed (Hypotensi on SBP <95 or DBP <50). midodrine 5 2022-0 Yes [id number] 5mg Take 1 Univers mg tablet 6-01 tablet by ity o f 00:00: mouth [place] 00 every 8 Medical (eight) Branch hours as needed (Hypotensi on SBP <95 or DBP <50). midodrine 5 2022-0 Yes [id number] 5mg Take 1 Univers mg tablet 6-01 tablet by ity o f 00:00: mouth [place] 00 every 8 Medical (eight) Branch hours as needed (Hypotensi on SBP <95 or DBP <50). midodrine 5 2022-0 Yes [id number] 5mg Take 1 Univers mg tablet 6-01 tablet by ity o f 00:00: mouth [place] 00 every 8 Medical (eight) Branch hours as needed (Hypotensi on SBP <95 or DBP <50). midodrine 5 2022-0 Yes [id number] 5mg Take 1 Univers mg tablet 6-01 tablet by ity o f 00:00: mouth [place] 00 every 8 Medical (eight) Branch hours as needed (Hypotensi on SBP <95 or DBP <50). midodrine 5 2022-0 Yes [id number] 5mg Take 1 Univers mg tablet 6-01 [...] Tue02/16/23 at 0900, Until Discontinu ed, Routine
manager membership approving Restricted medication : DEDRICK TOTH donepeziL [...] Tue02/20/23 at 0900, Routine sulfur 2022- No [id number] 5mL 5 mL, Unive rs hexafluorid 02-16 Intravenou i ty of e microsphr 14:00: 14:00 s, ONCE, 1 [place] (LUMASON) 00 :00 dose, On Medica l injection 5 Tue Branch mL 02/16/23 at 0900, Routine
manager membership approving Restricted medication : STEFFANIE REYES budesonide- [...] mg 02/04/23 at 1615, MICHAEL albuterol Yes [id number] 2{puff} Inhale 2 Univers 90 5-19 Puffs ity of mcg/actuati 00:00: every 4 [place] as on inhaler 00 (four) Medical hours as Branch needed for Wheezing or Shortness of Breath. albuterol Yes [id number] 2{puff} Inhale 2 Univers 90 5-19 Puffs ity of mcg/actuati 00:00: every 4 [place] as on inhaler 00 (four) Medical hours as Branch needed for Wheezing or Shortness of Breath. albuterol Yes [id number] 2{puff} Inhale 2 Univers 90 5-19 Puffs ity of mcg/actuati 00:00: every 4 [place] as on inhaler 00 (four) Medical hours as Branch needed for Wheezing or Shortness of Breath. albuterol Yes [id number] 2{puff} Inhale 2 Univers 90 5-19 Puffs ity of mcg/actuati 00:00: every 4 [place] as on inhaler 00 (four) Medical hours as Branch needed for Wheezing or Shortness of Breath. albuterol Yes [id number] 2{puff} Inhale 2 Univers 90 5-19 Puffs ity of mcg/actuati 00:00: every 4 [place] as on inhaler 00 (four) Medical hours as Branch needed for Wheezing or Shortness of Breath. albuterol Yes [id number] 2{puff} Inhale 2 Univers 90 5-19 Puffs ity of mcg/actuati 00:00: every 4 [place] as on inhaler 00 (four) Medical hours as Branch needed for Wheezing or Shortness of Breath. albuterol 0 Yes [id number] 2{puff} Inhale 2 Univers 90 5-19 Puffs ity of mcg/actuati 00:00: every 4 [place] as on inhaler 00 (four) Medical hours as Branch needed for Wheezing or Shortness of Breath. albuterol 0 Yes [id number] 2{puff} Inhale 2 Univers 90 5-19 Puffs ity of mcg/actuati 00:00: every 4 [place] as on inhaler 00 (four) Medical hours as Branch needed for Wheezing or Shortness of Breath. albuterol 0 Yes [id number] 2{puff} Inhale 2 Univers 90 5-19 Puffs ity of mcg/actuati 00:00: every 4 [place] as on inhaler 00 (four) Medical hours as Branch needed for Wheezing or Shortness of Breath. albuterol 0 Yes [id number] 2{puff} Inhale 2 Univers 90 5-19 Puffs [...] of succ 18:45: 18:16 s, ONCE, 1 [place] (SOLU-MEDRO 00 [...] solution 3 Routine mL albuterol 2022-0 Yes [id number] 2{puff} Inhale 2 Univers 90 5-15 Puffs ity of mcg/actuati 00:00: every 4 [place] as on inhaler 00 (four) Medical hours as Branch needed for Wheezing, Shortness of Breath or Bronchospa sm. fluticasone 2022-0 Yes [id number] 1{puff} Inhale 1 Univers propion-bella 5-15 Puff in ity o f meteroL 00:00: the [place] (ADVAIR 00 morning Medical DISKUS) and 1 Puff Branch 250-50 in the mcg/dose evening. inhalation disk montelukast 2022-0 Yes [id number] 10mg Take 1 Univers 10 mg 5-15 tablet by ity of tablet 00:00: mouth in [place] 00 the Medical morning. Branch tiotropium 2022-0 Yes [id number] 18ug Inhale 1 Univers 18 mcg 5-15 capsule in ity of inhalation 00:00: the [place] 00 morning. Medical Branch albuterol 2022-0 Yes [id number] 2{puff} Inhale 2 Univers 90 5-15 Puffs ity of mcg/actuati 00:00: every 4 [place] as on inhaler 00 (four) Medical hours as Branch needed for Wheezing, Shortness of Breath or Bronchospa sm. fluticasone 2022-0 Yes [id number] 1{puff} Inhale 1 Univers propion-bella 5-15 Puff in ity o f meteroL 00:00: the [place] (ADVAIR 00 morning Medical DISKUS) and 1 Puff Branch 250-50 in the mcg/dose evening. inhalation disk montelukast 2022-0 Yes [id number] 10mg Take 1 Univers 10 mg 5-15 tablet by ity of tablet 00:00: mouth in [place] 00 the Medical morning. Branch tiotropium 2022-0 Yes [id number] 18ug Inhale 1 Univers 18 mcg 5-15 capsule in ity of inhalation 00:00: the [place] 00 morning. Medical Branch albuterol 2022-0 Yes [id number] 2{puff} Inhale 2 Univers 90 5-15 Puffs ity of mcg/actuati 00:00: every 4 [place] as on inhaler 00 (four) Medical hours as Branch needed for Wheezing, Shortness of Breath or Bronchospa sm. fluticasone 3-0 Yes [id number] 1{puff} Inhale 1 Univers propion-bella 5-15 Puff in ity o f meteroL 00:00: the [place] (ADVAIR 00 morning Medical DISKUS) and 1 Puff Branch 250-50 in the mcg/dose evening. inhalation disk montelukast 3-0 Yes [id number] 10mg Take 1 Univers 10 mg 5-15 tablet by ity of tablet 00:00: mouth in [place] the Medical morning. Branch tiotropium 2022-0 Yes [id number] 18ug Inhale 1 Univers 18 mcg 5-15 capsule in ity of inhalation 00:00: the [place] 00 morning. Medical Branch albuterol 2022-0 Yes [id number] 2{puff} Inhale 2 Univers 90 5-15 Puffs ity of mcg/actuati 00:00: every 4 [place] as on inhaler 00 (four) Medical hours as Branch needed for Wheezing, Shortness of Breath or Bronchospa sm. fluticasone 2022-0 Yes [id number] 1{puff} Inhale 1 Univers propion-bella 5-15 Puff in ity o f meteroL 00:00: the [place] (ADVAIR 00 morning Medical DISKUS) and 1 Puff Branch 250-50 in the mcg/dose evening. inhalation disk montelukast 3-0 Yes [id number] 10mg Take 1 Univers 10 mg 5-15 tablet by ity of tablet 00:00: mouth in [place] the morning. Branch tiotropium 3-0 Yes [id number] 18ug Inhale 1 Univers 18 mcg 5-15 capsule in ity of inhalation 00:00: the [place] 00 morning. Medical Branch fluticasone 2023-0 Yes [id number] 1{puff} Inhale 1 Univers propion-bella 5-15 Puff in ity o f meteroL 00:00: the [place] (ADVAIR 00 morning Medical DISKUS) and 1 Puff Branch 250-50 in the mcg/dose evening. inhalation disk montelukast 3-0 Yes [id number] 10mg Take 1 Univers 10 mg 5-15 tablet by ity of tablet 00:00: mouth in [place] 00 the Medical morning. Branch tiotropium 2022-0 Yes [id number] 18ug Inhale 1 Univers 18 mcg 5-15 capsule in ity of inhalation 00:00: the [place] 00 morning. Medical Branch fluticasone 2022-0 Yes [id number] 1{puff} Inhale 1 Univers propion-bella 5-15 Puff in ity o f meteroL 00:00: the [place] (ADVAIR 00 morning Medical DISKUS) and 1 Puff Branch 250-50 in the mcg/dose evening. inhalation disk montelukast 3-0 Yes [id number] 10mg Take 1 Univers 10 mg 5-15 tablet by ity of tablet 00:00: mouth in [place] 00 the Medical morning. Branch tiotropium 2022-0 Yes [id number] 18ug Inhale 1 Univers 18 mcg 5-15 capsule in ity of inhalation 00:00: the [place] 00 morning. Medical Branch fluticasone 2022-0 Yes [id number] 1{puff} Inhale 1 Univers propion-bella 5-15 Puff in ity o f meteroL 00:00: the [place] (ADVAIR 00 morning Medical DISKUS) and 1 Puff Branch 250-50 in the mcg/dose evening. inhalation disk montelukast 2022-0 Yes [id number] 10mg Take 1 Univers 10 mg 5-15 tablet by ity of tablet 00:00: mouth in [place] 00 the Medical morning. Branch tiotropium 2022-0 Yes [id number] 18ug Inhale 1 Univers 18 mcg 5-15 capsule in ity of inhalation 00:00: the [place] 00 morning. Medical Branch fluticasone 3-0 Yes [id number] 1{puff} Inhale 1 Univers propion-bella 5-15 Puff in ity o f meteroL 00:00: the [place] (ADVAIR 00 morning Medical DISKUS) and 1 Puff Branch 250-50 in the mcg/dose evening. inhalation disk montelukast 3-0 Yes [id number] 10mg Take 1 Univers 10 mg 5-15 tablet by ity of tablet 00:00: mouth in [place] 00 the Medical morning. Branch tiotropium 2022-0 Yes [id number] 18ug Inhale 1 Univers 18 mcg 5-15 capsule in ity of inhalation 00:00: the [place] 00 morning. Medical Branch fluticasone 2022-0 Yes [id number] 1{puff} Inhale 1 Univers propion-bella 5-15 Puff in ity o f meteroL 00:00: the [place] (ADVAIR 00 morning Medical DISKUS) and 1 Puff Branch 250-50 in the mcg/dose evening. inhalation disk montelukast 2022-0 Yes [id number] 10mg Take 1 Univers 10 mg 5-15 tablet by ity of tablet 00:00: mouth in [place] 00 the Medical morning. Branch tiotropium 2022-0 Yes [id number] 18ug Inhale 1 Univers 18 mcg 5-15 capsule in ity of inhalation 00:00: the [place] 00 morning. Medical Branch fluticasone 2022-0 Yes [id number] 1{puff} Inhale 1 Univers propion-bella 5-15 Puff in ity o f meteroL 00:00: the [place] (ADVAIR 00 morning Medical DISKUS) and 1 Puff Branch 250-50 in the mcg/dose evening. inhalation disk montelukast 2022-0 Yes [id number] 10mg Take 1 Univers 10 mg 5-15 tablet by ity of tablet 00:00: mouth in [place] the morning. Branch tiotropium 2022-0 Yes [id number] 18ug Inhale 1 Univers 18 mcg 5-15 capsule in ity of inhalation 00:00: the [place] 00 morning. Medical Branch fluticasone 2022-0 Yes [id number] 1{puff} Inhale 1 Univers propion-bella 5-15 Puff in ity o f meteroL 00:00: the [place] (ADVAIR 00 morning Medical DISKUS) and 1 Puff Branch 250-50 in the mcg/dose evening. inhalation disk montelukast 2022-0 Yes [id number] 10mg Take 1 Univers 10 mg 5-15 tablet by ity of tablet 00:00: mouth in [place] 00 the Medical morning. Branch tiotropium 2022-0 Yes [id number] 18ug Inhale 1 Univers 18 mcg 5-15 capsule in ity of inhalation 00:00: the [place] 00 morning. Medical Branch fluticasone 2022-0 Yes [id number] 1{puff} Inhale 1 Univers propion-bella 5-15 Puff in ity o f meteroL 00:00: the [place] (ADVAIR 00 morning Medical DISKUS) and 1 Puff Branch 250-50 in the mcg/dose evening. inhalation disk montelukast 2022-0 Yes [id number] 10mg Take 1 Univers 10 mg 5-15 tablet by ity of tablet 00:00: mouth in [place] 00 the Medical morning. Branch tiotropium 2022-0 Yes [id number] 18ug Inhale 1 Univers 18 mcg 5-15 capsule in ity of inhalation 00:00: the [place] 00 morning. Medical Branch fluticasone 2022-0 Yes [id number] 1{puff} Inhale 1 Univers propion-bella 5-15 Puff in ity o f meteroL 00:00: the [place] (ADVAIR 00 morning Medical DISKUS) and 1 Puff Branch 250-50 in the mcg/dose evening. inhalation disk montelukast 2022-0 Yes [id number] 10mg Take 1 Univers 10 mg 5-15 tablet by ity of tablet 00:00: mouth in [place] 00 the Medical morning. Branch tiotropium 2022-0 Yes [id number] 18ug Inhale 1 Univers 18 mcg 5-15 capsule in ity of inhalation 00:00: the [place] 00 morning. Medical Branch fluticasone 2022-0 Yes [id number] 1{puff} Inhale 1 Univers propion-bella 5-15 Puff in ity o f meteroL 00:00: the [place] (ADVAIR 00 morning Medical DISKUS) and 1 Puff Branch 250-50 in the mcg/dose evening. inhalation disk montelukast 2022-0 Yes [id number] 10mg Take 1 Univers 10 mg 5-15 tablet by ity of tablet 00:00: mouth in [place] 00 the Medical morning. Branch tiotropium 2022-0 Yes [id number] 18ug Inhale 1 Univers 18 mcg 5-15 capsule in ity of inhalation 00:00: the [place] 00 morning. Medical Branch albuterol 2022-0 2022- No [id number] 2{puff} Inhale 2 Univers 90 5-15 05-19 [...] 40 mg 00 :00 dose, On Medical [facility] 01/24/23 Branch at 1300, MICHAEL aspirin 2022-2022- No 325mg 325 mg, Unive rs tablet 325 01-24 Oral, ity of mg 18:00: 18:44 ONCE, 1 [place] 00 :00 dose, On Medical [facility] 01/24/23 Branch at 1300, STAT busPIRone 2023-0 Yes 10mg Take 1 Univer s 10 mg 5-08 tablet by ity of tablet 15:48: mouth in [place] [address] the Medical morning Branch and 1 tablet in the evening. rivaroxaban 2023-0 Yes 15mg Take 1 Univ ers 15 mg 5-08 tablet by ity of tablet 15:48: mouth in [place] [address] the Medical morning. Branch ASPIRIN 2023-0 Yes 81mg Take 81 mg Univ ers ORAL 5-08 by mouth ity of 15:48: in the [place] [address] morning. Medical tablet Branch busPIRone 2023-0 Yes 10mg Take 1 Univer s 10 mg 5-08 tablet by ity of tablet 15:48: mouth in [place] [address] the Medical morning Branch and 1 tablet in the evening. rivaroxaban 2023-0 Yes 15mg Take 1 Univ ers 15 mg 5-08 tablet by ity of tablet 15:48: mouth in [place] [address] the Medical morning. Branch ASPIRIN 2023-0 Yes 81mg Take 81 mg Univ ers ORAL 5-08 by mouth ity of 15:48: in the [place] [address] morning. Medical tablet Branch busPIRone 2023-0 Yes 10mg Take 1 Univer s 10 mg 5-08 tablet by ity of tablet 15:48: mouth in [place] [address] the Medical morning Branch and 1 tablet in the evening. rivaroxaban 2023-0 Yes 15mg Take 1 Univ ers 15 mg 5-08 tablet by ity of tablet 15:48: mouth in [place] [address] the Medical morning. Branch ASPIRIN 2023-0 Yes 81mg Take 81 mg Univ ers ORAL 5-08 by mouth ity of 15:48: in the [place] [address] morning. Medical tablet Branch busPIRone 2023-0 Yes 10mg Take 1 Univer s 10 mg 5-08 tablet by ity of tablet 15:48: mouth in [place] [address] the Medical morning Branch and 1 tablet in the evening. rivaroxaban 2023-0 Yes 15mg Take 1 Univ ers 15 mg 5-08 tablet by ity of tablet 15:48: mouth in [place] [address] the Medical morning. Branch ASPIRIN 2023-0 Yes 81mg Take 81 mg Univ ers ORAL 5-08 by mouth ity of 15:48: in the [place] [address] morning. Medical tablet Branch busPIRone 2023-0 Yes 10mg Take 1 Univer s 10 mg 5-08 tablet by ity of tablet 15:48: mouth in [place] [address] the Medical morning Branch and 1 tablet in the evening. rivaroxaban 2023-0 Yes 15mg Take 1 Univ ers 15 mg 5-08 tablet by ity of tablet 15:48: mouth in [place] [address] the Medical morning. Branch ASPIRIN 2023-0 Yes 81mg Take 81 mg Univ ers ORAL 5-08 by mouth ity of 15:48: in the [place] [address] morning. Medical tablet Branch busPIRone 2023-0 Yes 10mg Take 1 Univer s 10 mg 5-08 tablet by ity of tablet 15:48: mouth in [place] [address] the Medical morning Branch and 1 tablet in the evening. rivaroxaban 2023-0 Yes 15mg Take 1 [facility] ers 15 mg 5-08 tablet by ity of tablet 15:48: mouth in [place] [address] the Medical morning. Branch ASPIRIN 2023-0 Yes 81mg Take 81 mg Univ ers ORAL 5-08 by mouth ity of 15:48: in the [place] [address] morning. Medical tablet Branch busPIRone 2023-0 Yes 10mg Take 1 [facility] 10 mg 5-08 tablet by ity of tablet 15:48: mouth in [place] [address] the Medical morning Branch and 1 tablet in the evening. rivaroxaban 2023-0 Yes 15mg Take 1 [facility] ers 15 mg 5-08 tablet by ity of tablet 15:48: mouth in [place] [address] the Medical morning. Branch ASPIRIN 2023-0 Yes 81mg Take 81 mg [facility] ers ORAL 5-08 by mouth ity of 15:48: in the [place] [address] morning. Medical tablet Branch busPIRone 2023-0 Yes 10mg Take 1 [facility] 10 mg 5-08 tablet by ity of tablet 15:48: mouth in [place] [address] the Medical morning Branch and 1 tablet in the evening. rivaroxaban 2023-0 Yes 15mg Take 1 [facility] ers 15 mg 5-08 tablet by ity of tablet 15:48: mouth in [place] [address] the Medical morning. Branch ASPIRIN 2023-0 Yes 81mg Take 81 mg [facility] ers ORAL 5-08 by mouth ity of 15:48: in the [place] [address] morning. Medical tablet Branch busPIRone 2023-0 Yes 10mg Take 1 [facility] 10 mg 5-08 tablet by ity of tablet 15:48: mouth in [place] [address] the Medical morning Branch and 1 tablet in the evening. rivaroxaban 2023-0 Yes 15mg Take 1 [facility] ers 15 mg 5-08 tablet by ity of tablet 15:48: mouth in [place] [address] the Medical morning. Branch ASPIRIN 2023-0 Yes 81mg Take 81 mg [facility] ers ORAL 5-08 by mouth ity of 15:48: in the [place] [address] morning. Medical tablet Branch busPIRone 2023-0 Yes 10mg Take 1 [facility] 10 mg 5-08 tablet by ity of tablet 15:48: mouth in [place] [address] the Medical morning Branch and 1 tablet in the evening. rivaroxaban 2023-0 Yes 15mg Take 1 [facility] 15 mg 5-08 tablet by ity of tablet 15:48: mouth in [place] [address] the Medical morning. Branch ASPIRIN 2023-0 Yes 81mg Take 81 mg [facility] ers ORAL 5-08 by mouth ity of 15:48: in the [place] [address] morning. Medical tablet Branch busPIRone 2023-0 Yes 10mg Take 1 [facility] 10 mg 5-08 tablet by ity of tablet 15:48: mouth in [place] [address] the Medical morning Branch and 1 tablet in the evening. rivaroxaban 2023-0 Yes 15mg Take 1 [facility] 15 mg 5-08 tablet by ity of tablet 15:48: mouth in [place] [address] the Medical morning. Branch ASPIRIN 2023-0 Yes 81mg Take 81 mg [facility] ers ORAL 5-08 by mouth ity of 15:48: in the [place] [address] morning. Medical tablet Branch busPIRone 2023-0 Yes 10mg Take 1 [facility] 10 mg 5-08 tablet by ity of tablet 15:48: mouth in [place] [address] the Medical morning Branch and 1 tablet in the evening. rivaroxaban 2023-0 Yes 15mg Take 1 [facility] 15 mg 5-08 tablet by ity of tablet 15:48: mouth in [place] [address] the Medical morning. Branch ASPIRIN 2023-0 Yes 81mg Take 81 mg [facility] ers ORAL 5-08 by mouth ity of 15:48: in the [place] [address] morning. Medical tablet Branch busPIRone 2023-0 Yes 10mg Take 1 [facility] 10 mg 5-08 tablet by ity of tablet 15:48: mouth in [place] [address] the Medical morning Branch and 1 tablet in the evening. rivaroxaban 2023-0 Yes 15mg Take 1 [facility] ers 15 mg 5-08 tablet by ity of tablet 15:48: mouth in [place] [address] the Medical morning. Branch ASPIRIN 0 Yes 81mg Take 81 mg [facility] ers ORAL 5-08 by mouth ity of 15:48: in the [place] 43 morning. Medical tablet Branch levalbutero 2022- [...] mg 01/21/23 Branch at 1445, STAT
[facility] : LOUIS HONG NaCl 0.9% 2022- No 1000mL at 999 Uni vers (NS) bolus 5-05 05-05 mL/hr, ity of infusion 19:45: 22:17 1,000 mL, [place] as 1,000 mL 00 :00 IV Medical Infusion, Branch ONCE, 1 dose, On Tue01/21/23 at 1445, STAT predniSONE 2022- Yes [id number] 40mg Take 2 [facility] 20 mg 5-04 05-09 tablets by ity of tablet 00:00: 04:59 mouth in [place] 00 :00 the Medical morning [place] for 4 days. predniSONE 2022-0 2022- Yes [id number] 40mg Take 2 [facility] 20 mg 5-04 05-09 tablets by ity of tablet 00:00: 04:59 mouth in [place] 00 :00 the [facility] morning [place] for 4 days. predniSONE 2022-0 2022- Yes [id number] 40mg Take 2 [facility] 20 mg 5-04 05-09 tablets by ity of tablet 00:00: 04:59 mouth in [place] 00 :00 the [facility] morning [place] for 4 days. predniSONE 2022-0 2022- Yes [id number] 40mg Take 2 [facility] 20 mg 5-04 05-09 tablets by ity of tablet 00:00: 04:59 mouth in [place] 00 :00 the [facility] for 4 days. predniSONE 2022-0 2022- Yes [id number] 40mg Take 2 [facility] 20 mg 5-04 05-09 tablets by ity of tablet 00:00: 04:59 mouth in [place] 00 :00 the [facility] morning [place] for 4 days. predniSONE 2022-0 2022- Yes [id number] 40mg Take 2 [facility] 20 mg 5-04 05-09 tablets by ity of tablet 00:00: 04:59 mouth in [place] 00 :00 the [facility] morning [place] for 4 days. predniSONE 2022-0 2022- Yes [id number] 40mg Take 2 [facility] 20 mg 5-04 05-09 tablets by ity of tablet 00:00: 04:59 mouth in [place] 00 :00 the [facility] morning [place] for 4 days. enoxaparin Yes 40mg 40 [...] by ity of tablet 19:49: mouth in [place] [address] the Medical morning Branch and 1 tablet in the evening. rivaroxaban 2023-0 Yes 15mg Take 1 [facility] ers 15 mg 5-03 tablet by ity of tablet 19:49: mouth in [place] [address] the Medical morning. Branch ASPIRIN 3-0 Yes 81mg Take 81 mg [facility] ers ORAL 5-03 by mouth ity of 19:49: in the [place] [address] morning. Medical tablet Branch busPIRone 2023-0 Yes 10mg Take 1 [facility] 10 mg 5-03 tablet by ity of tablet 19:49: mouth in [place] [address] the Medical morning Branch and 1 tablet in the evening. rivaroxaban 2023-0 Yes 15mg Take 1 [facility] ers 15 mg 5-03 tablet by ity of tablet 19:49: mouth in [place] [address] the Medical morning. Branch ASPIRIN 2023-0 Yes 81mg Take 81 mg [facility] ers ORAL 5-03 by mouth ity of 19:49: in the [place] [address] morning. Medical tablet Branch busPIRone 2023-0 Yes 10mg Take 1 [facility] 10 mg 5-03 tablet by ity of tablet 19:49: mouth in [place] [address] the Medical morning Branch and 1 tablet in the evening. rivaroxaban 2023-0 Yes 15mg Take 1 [facility] ers 15 mg 5-03 tablet by ity of tablet 19:49: mouth in [place] [address] the Medical morning. Branch ASPIRIN 3-0 Yes 81mg Take 81 mg [facility] ers ORAL 5-03 by mouth ity of 19:49: in the [place] [address] morning. Medical tablet Branch busPIRone 3-0 Yes 10mg Take 1 [facility] 10 mg 5-03 tablet by ity of tablet 19:49: mouth in [place] [address] the Medical morning Branch and 1 tablet in the evening. rivaroxaban 3-0 Yes 15mg Take 1 [facility] ers 15 mg 5-03 tablet by ity of tablet 19:49: mouth in [place] [address] the Medical morning. Branch ASPIRIN 3-0 Yes 81mg Take 81 mg [facility] ers ORAL 5-03 by mouth ity of 19:49: in the [place] [address] morning. Medical tablet Branch busPIRone 3-0 Yes 10mg Take 1 [facility] 10 mg 5-03 tablet by ity of tablet 19:49: mouth in [place] [address] the Medical morning Branch and 1 tablet in the evening. rivaroxaban 3-0 Yes 15mg Take 1 [facility] ers 15 mg 5-03 tablet by ity of tablet 19:49: mouth in [place] [address] the Medical morning. Branch ASPIRIN 3-0 Yes 81mg Take 81 mg [facility] ers ORAL 5-03 by mouth ity of 19:49: in the [place] [address] morning. Medical tablet Branch busPIRone 3-0 Yes 10mg Take 1 [facility] 10 mg 5-03 tablet by ity of tablet 19:49: mouth in [place] [address] the Medical morning Branch and 1 tablet in the evening. rivaroxaban 3-0 Yes 15mg Take 1 [facility] ers 15 mg 5-03 tablet by ity of tablet 19:49: mouth in [place] [address] the Medical morning. Branch ASPIRIN 3-0 Yes 81mg Take 81 mg [facility] ers ORAL 5-03 by mouth ity of 19:49: in the [place] [address] morning. Medical tablet Branch benazepriL 2022-0 2022- [...] IV Push, ity of (PF)) 08:03: Q6HPRN, [place] injection 4 53 Starting Medi lucho mg [...] acetaminoph 2022- Yes 650mg 650 mg, Un igro en 01-19 Oral, ity of (TYLENOL) 08:03: [...] mg at 0145, MICHAEL ipratropium 3-0 Yes [id number] .5mg Inhale 2.5 Univers 0.02 % 5-03 mL every 6 ity of nebulizer 00:00: (six) [place] solution 00 hours as Medical needed for Branch Wheezing, Shortness of Breath, Bronchospa sm or Chest tightness. guaiFENesin 2023-0 Yes [id number] 200mg Take 10 mL Univers 100 mg/5 mL 03 by mouth ity of solution 00:00: every 6 [place] 00 (six) Medical hours as Branch needed for Cough. ipratropium 2023-0 Yes [id number] .5mg Inhale 2.5 Univers 0.02 % 5-03 mL every 6 ity of nebulizer 00:00: (six) [place] solution 00 hours as Medical needed for Branch Wheezing, Shortness of Breath, Bronchospa sm or Chest tightness. guaiFENesin 2023-0 Yes [id number] 200mg Take 10 mL Univers 100 mg/5 mL 5-03 by mouth ity of solution 00:00: every 6 [place] 00 (six) Medical hours as Branch needed for Cough. ipratropium 2023-0 Yes [id number] .5mg Inhale 2.5 Univers 0.02 % 5-03 mL every 6 ity of nebulizer 00:00: (six) [place] solution 00 hours as Medical needed for Branch Wheezing, Shortness of Breath, Bronchospa sm or Chest tightness. guaiFENesin 2023-0 Yes [id number] 200mg Take 10 mL Univers 100 mg/5 mL 5-03 by mouth ity of solution 00:00: every 6 [place] 00 (six) Medical hours as Branch needed for Cough. ipratropium 2023-0 Yes [id number] .5mg Inhale 2.5 Univers 0.02 % 5-03 mL every 6 ity of nebulizer 00:00: (six) [place] solution 00 hours as Medical needed for Branch Wheezing, Shortness of Breath, Bronchospa sm or Chest tightness. guaiFENesin 2023-0 Yes [id number] 200mg Take 10 mL Univers 100 mg/5 mL 5-03 by mouth ity of solution 00:00: every 6 [place] 00 (six) Medical hours as Branch needed for Cough. ipratropium 2023-0 Yes [id number] .5mg Inhale 2.5 Univers 0.02 % 5-03 mL every 6 ity of nebulizer 00:00: (six) [place] solution 00 hours as Medical needed for Branch Wheezing, Shortness of Breath, Bronchospa sm or Chest tightness. guaiFENesin 2023-0 Yes [id number] 200mg Take 10 mL Univers 100 mg/5 mL 5-03 by mouth ity of solution 00:00: every 6 [place] 00 (six) Medical hours as Branch needed for Cough. ipratropium 2023-0 Yes [id number] .5mg Inhale 2.5 Univers 0.02 % 5-03 mL every 6 ity of nebulizer 00:00: (six) [place] solution 00 hours as Medical needed for Branch Wheezing, Shortness of Breath, Bronchospa sm or Chest tightness. guaiFENesin 2023-0 Yes [id number] 200mg Take 10 mL Univers 100 mg/5 mL 5-03 by mouth ity of solution 00:00: every 6 [place] 00 (six) Medical hours as Branch needed for Cough. ipratropium 2023-0 Yes [id number] .5mg Inhale 2.5 Univers 0.02 % 5-03 mL every 6 ity of nebulizer 00:00: (six) [place] solution 00 hours as Medical needed for Branch Wheezing, Shortness of Breath, Bronchospa sm or Chest tightness. guaiFENesin 2023-0 Yes [id number] 200mg Take 10 mL Univers 100 mg/5 mL 5-03 by mouth ity of solution 00:00: every 6 [place] 00 (six) Medical hours as Branch needed for Cough. ipratropium 2023-0 Yes [id number] .5mg Inhale 2.5 Univers 0.02 % 5-03 mL every 6 ity of nebulizer 00:00: (six) [place] solution 00 hours as Medical needed for Branch Wheezing, Shortness of Breath, Bronchospa sm or Chest tightness. guaiFENesin 2023-0 Yes [id number] 200mg Take 10 mL [facility] 100 mg/5 mL 5-03 by mouth ity of solution 00:00: every 6 [place] 00 (six) Medical hours as Branch needed for Cough. ipratropium 2023-0 Yes [id number] .5mg Inhale 2.5 Univers 0.02 % 5-03 mL every 6 ity of nebulizer 00:00: (six) [place] solution 00 hours as Medical needed for Branch Wheezing, Shortness of Breath, Bronchospa sm or Chest tightness. guaiFENesin 2023-0 Yes [id number] 200mg Take 10 mL Univers 100 mg/5 mL 5-03 by mouth ity of solution 00:00: every 6 [place] 00 (six) Medical hours as Branch needed for Cough. ipratropium 2023-0 Yes [id number] .5mg Inhale 2.5 Univers 0.02 % 5-03 mL every 6 ity of nebulizer 00:00: (six) [place] solution 00 hours as Medical needed for Branch Wheezing, Shortness of Breath, Bronchospa sm or Chest tightness. guaiFENesin 2023-0 Yes [id number] 200mg Take 10 mL Univers 100 mg/5 mL 5-03 by mouth ity of solution 00:00: every 6 [place] 00 (six) Medical hours as Branch needed for Cough. ipratropium 2023-0 Yes [id number] .5mg Inhale 2.5 Univers 0.02 % 5-03 mL every 6 ity of nebulizer 00:00: (six) [place] solution 00 hours as Medical needed for Branch Wheezing, Shortness of Breath, Bronchospa sm or Chest tightness. guaiFENesin 2023-0 Yes [id number] 200mg Take 10 mL Univers 100 mg/5 mL 5-03 by mouth ity of solution 00:00: every 6 [place] 00 (six) Medical hours as Branch needed for Cough. ipratropium 2023-0 Yes [id number] .5mg Inhale 2.5 Univers 0.02 % 5-03 mL every 6 ity of nebulizer 00:00: (six) [place] solution 00 hours as Medical needed for Branch Wheezing, Shortness of Breath, Bronchospa sm or Chest tightness. guaiFENesin 2023-0 Yes [id number] 200mg Take 10 mL Univers 100 mg/5 mL 5-03 by mouth ity of solution 00:00: every 6 [place] 00 (six) Medical hours as Branch needed for Cough. ipratropium 2023-0 Yes [id number] .5mg Inhale 2.5 Univers 0.02 % 5-03 mL every 6 ity of nebulizer 00:00: (six) [place] solution 00 hours as Medical needed for Branch Wheezing, Shortness of Breath, Bronchospa sm or Chest tightness. guaiFENesin 2023-0 Yes [id number] 200mg Take 10 mL [facility] 100 mg/5 mL 5-03 by mouth ity of solution 00:00: every 6 [place] 00 (six) Medical hours as Branch needed for Cough. ipratropium 2023-0 Yes [id number] .5mg Inhale 2.5 Univers 0.02 % 5-03 mL every 6 ity of nebulizer 00:00: (six) [place] solution 00 hours as Medical needed for Branch Wheezing, Shortness of Breath, Bronchospa sm or Chest tightness. guaiFENesin 2023-0 Yes [id number] 200mg Take 10 mL Univers 100 mg/5 mL 5-03 by mouth ity of solution 00:00: every 6 [place] 00 (six) Medical hours as Branch needed for Cough. ipratropium 2023-0 Yes [id number] .5mg Inhale 2.5 Univers 0.02 % 5-03 mL every 6 ity of nebulizer 00:00: (six) [place] solution 00 hours as Medical needed for Branch Wheezing, Shortness of Breath, Bronchospa sm or Chest tightness. guaiFENesin 2023-0 Yes [id number] 200mg Take 10 mL Univers 100 mg/5 mL 5-03 by mouth ity of solution 00:00: every 6 [place] 00 (six) Medical hours as Branch needed for Cough. ipratropium 2023-0 Yes [id number] .5mg Inhale 2.5 Univers 0.02 % 5-03 mL every 6 ity of nebulizer 00:00: (six) [place] solution 00 hours as Medical needed for Branch Wheezing, Shortness of Breath, Bronchospa sm or Chest tightness. guaiFENesin 2023-0 Yes [id number] 200mg Take 10 mL Univers 100 mg/5 mL 5-03 by mouth ity of solution 00:00: every 6 [place] 00 (six) Medical hours as Branch needed for Cough. ipratropium 2023-0 Yes [id number] .5mg Inhale 2.5 Univers 0.02 % 5-03 mL every 6 ity of nebulizer 00:00: (six) [place] solution 00 hours as Medical needed for Branch Wheezing, Shortness of Breath, Bronchospa sm or Chest tightness. guaiFENesin 2023-0 Yes [id number] 200mg Take 10 mL Univers 100 mg/5 mL 5-03 by mouth ity of solution 00:00: every 6 [place] 00 (six) Medical hours as Branch needed for Cough. ipratropium 2023-0 Yes [id number] .5mg Inhale 2.5 Univers 0.02 % 5-03 mL every 6 ity of nebulizer 00:00: (six) [place] solution 00 hours as Medical needed for Branch Wheezing, Shortness of Breath, Bronchospa sm or Chest tightness. guaiFENesin 2023-0 Yes [id number] 200mg Take 10 mL Univers 100 mg/5 mL 5-03 by mouth ity of solution 00:00: every 6 [place] 00 (six) Medical hours as Branch needed for Cough. ipratropium 2023-0 Yes [id number] .5mg Inhale 2.5 Univers 0.02 % 5-03 mL every 6 ity of nebulizer 00:00: (six) [place] solution 00 hours as Medical needed for Branch Wheezing, Shortness of Breath, Bronchospa sm or Chest tightness. guaiFENesin 2023-0 Yes [id number] 200mg Take 10 mL Univers 100 mg/5 mL 5-03 by mouth ity of solution 00:00: every 6 [place] 00 (six) Medical hours as Branch needed for Cough. guaiFENesin 2023-0 Yes [id number] 200mg Take 10 mL Univers 100 mg/5 mL 5-03 by mouth ity of solution 00:00: every 6 [place] 00 (six) Medical hours as Branch needed for Cough. guaiFENesin 2023-0 Yes [id number] 200mg Take 10 mL Univers 100 mg/5 mL 5-03 by mouth ity of solution 00:00: every 6 [place] 00 (six) Medical hours as Branch needed for Cough. guaiFENesin 2023-0 Yes [id number] 200mg Take 10 mL Univers 100 mg/5 mL 5-03 by mouth ity of solution 00:00: every 6 [place] 00 (six) Medical hours as Branch needed for Cough. guaiFENesin 2023-0 Yes [id number] 200mg Take 10 mL [facility] 100 mg/5 mL 5-03 by mouth ity of solution 00:00: every 6 [place] 00 (six) Medical hours as Branch needed for Cough. guaiFENesin 2023-0 Yes [id number] 200mg Take 10 mL Univers 100 mg/5 mL 5-03 by mouth ity of solution 00:00: every 6 [place] 00 (six) Medical hours as Branch needed for Cough. guaiFENesin 2023-0 Yes [id number] 200mg Take 10 mL Univers 100 mg/5 mL 5-03 by mouth ity of solution 00:00: every 6 [place] 00 (six) Medical hours as Branch needed for Cough. guaiFENesin 2023-0 Yes [id number] 200mg Take 10 mL [facility] 100 mg/5 mL 5-03 by mouth ity of solution 00:00: every 6 [place] 00 (six) Medical hours as Branch needed for Cough. ipratropium 2022- No [id number] .5mg Inhale 2.5 Univers 0.02 % 01-19 mL every 6 ity of nebulizer 00:00: 00:00 (six) [place] solution 00 :00 hours as Medical needed for Branch Wheezing, Shortness of Breath, Bronchospa sm or Chest tightness. levoFLOXaci 2022- Yes [id number] 500mg Take 1 Univers n 500 mg 01-19-08 tablet by ity o f tablet 00:00: 04:59 mouth in [place] 00 :00 the [facility] for 4 days. levoFLOXaci 2022- Yes [id number] 500mg Take 1 Univers n 500 mg 01-19-08 tablet by ity o f tablet 00:00: 04:59 mouth in [place] 00 :00 the [facility] for 4 days. levoFLOXaci 2022- Yes [id number] 500mg Take 1 Univers n 500 mg 01-19-08 tablet by ity o f tablet 00:00: 04:59 mouth in [place] 00 :00 the [facility] for 4 days. levoFLOXaci 2022- Yes [id number] 500mg Take 1 Univers n 500 mg 01-19-08 tablet by ity o f tablet 00:00: 04:59 mouth in [place] 00 :00 the [facility] for 4 days. levoFLOXaci 2022- Yes [id number] 500mg Take 1 Univers n 500 mg 01-19-08 tablet by ity o f tablet 00:00: 04:59 mouth in [place] 00 :00 the [facility] for 4 days. levoFLOXaci 2022- Yes [id number] 500mg Take 1 Univers n 500 mg - 05-08 tablet by ity o f tablet 00:00: 04:59 mouth in [place] 00 :00 the [facility] for 4 days. levalbutero 2022-2022- No [...] mg at 0645, MICHAEL albuterol 2022-0 Yes [id number] 2{puff} Inhale 2 Univers 90 5-01 Puffs ity of mcg/actuati 00:00: every 4 [place] on inhaler 00 (four) Medical hours as Branch needed for Wheezing or Shortness of Breath. albuterol 2022-0 Yes [id number] 2.5mg Inhale 3 Univers 2.5 mg /3 5-01 mL every 4 ity of mL (0.083 00:00: (four) [place] %) 00 hours. May Medical nebulizer also Branch solution nebulize one extra every 6 hours. predniSONE 2022-0 Yes [id number] 50mg Take 1 Univers 50 mg 5-01 tablet by ity of tablet 00:00: mouth in [place] 00 the Medical morning. Branch benzonatate 2022-0 Yes [id number] 200mg Take 1 [facility] 200 mg 5-01 capsule by ity of capsule 00:00: mouth 3 [place] 00 (three) Medical times Branch daily as needed for Cough. ipratropium 3-0 Yes [id number] .5mg Inhale 2.5 Univers 0.02 % 5-01 mL every 6 ity of nebulizer 00:00: (six) [place] solution 00 hours as Medical needed for Branch Wheezing, Shortness of Breath, Bronchospa sm or Chest tightness. albuterol 2022-0 Yes [id number] 2{puff} Inhale 2 Univers 90 5-01 Puffs ity of mcg/actuati 00:00: every 4 [place] on inhaler 00 (four) Medical hours as Branch needed for Wheezing or Shortness of Breath. albuterol 3-0 Yes [id number] 2.5mg Inhale 3 Univers 2.5 mg /3 5-01 mL every 4 ity of mL (0.083 00:00: (four) [place] %) 00 hours. May Medical nebulizer also Branch solution nebulize one extra every 6 hours. benzonatate 3-0 Yes [id number] 200mg Take 1 [facility] 200 mg 5-01 capsule by ity of capsule 00:00: mouth 3 (three) Medical times Branch daily as needed for Cough. albuterol 3-0 Yes [id number] 2{puff} Inhale 2 Univers 90 5-01 Puffs ity of mcg/actuati 00:00: every 4 [place] on inhaler 00 (four) Medical hours as Branch needed for Wheezing or Shortness of Breath. albuterol 3-0 Yes [id number] 2.5mg Inhale 3 Univers 2.5 mg /3 5-01 mL every 4 ity of mL (0.083 00:00: (four) [place] %) 00 hours. May Medical nebulizer also Branch solution nebulize one extra every 6 hours. benzonatate 3-0 Yes [id number] 200mg Take 1 [facility] 200 mg 5-01 capsule by ity of capsule 00:00: mouth 3 (three) Medical times Branch daily as needed for Cough. albuterol 3-0 Yes [id number] 2{puff} Inhale 2 Univers 90 5-01 Puffs ity of mcg/actuati 00:00: every 4 [place] on inhaler 00 (four) Medical hours as Branch needed for Wheezing or Shortness of Breath. albuterol 2023-0 Yes [id number] 2.5mg Inhale 3 Univers 2.5 mg /3 5-01 mL every 4 ity of mL (0.083 00:00: (four) [place] %) 00 hours. May Medical nebulizer also Branch solution nebulize one extra every 6 hours. benzonatate 2023-0 Yes [id number] 200mg Take 1 [facility] 200 mg 5-01 capsule by ity of capsule 00:00: mouth 3 (three) Medical times Branch daily as needed for Cough. albuterol 2023-0 Yes [id number] 2{puff} Inhale 2 [facility] 90 5-01 Puffs ity of mcg/actuati 00:00: every 4 [place] on inhaler 00 (four) Medical hours as Branch needed for Wheezing or Shortness of Breath. albuterol 2022-0 Yes [id number] 2.5mg Inhale 3 Univers 2.5 mg /3 5-01 mL every 4 ity of mL (0.083 00:00: (four) [place] %) 00 hours. May Medical nebulizer also Branch solution nebulize one extra every 6 hours. benzonatate 2022-0 Yes [id number] 200mg Take 1 [facility] 200 mg 5-01 capsule by ity of capsule 00:00: mouth 3 [place] 00 (three) Medical times Branch daily as needed for Cough. albuterol 2022-0 Yes [id number] 2{puff} Inhale 2 [facility] 90 5-01 Puffs ity of mcg/actuati 00:00: every 4 [place] as on inhaler 00 (four) Medical hours as Branch needed for Wheezing or Shortness of Breath. albuterol 2022-0 Yes [id number] 2.5mg Inhale 3 Univers 2.5 mg /3 5-01 mL every 4 ity of mL (0.083 00:00: (four) [place] %) 00 hours. May Medical nebulizer also Branch solution nebulize one extra every 6 hours. benzonatate 2022-0 Yes [id number] 200mg Take 1 [facility] 200 mg 5-01 capsule by ity of capsule 00:00: mouth 3 [place] 00 (three) Medical times Branch daily as needed for Cough. albuterol 2022-0 Yes [id number] 2{puff} Inhale 2 [facility] 90 5-01 Puffs ity of mcg/actuati 00:00: every 4 [place] as on inhaler 00 (four) Medical hours as Branch needed for Wheezing or Shortness of Breath. albuterol 2022-0 Yes [id number] 2.5mg Inhale 3 Univers 2.5 mg /3 5-01 mL every 4 ity of mL (0.083 00:00: (four) [place] %) 00 hours. May Medical nebulizer also Branch solution nebulize one extra every 6 hours. benzonatate 2022-0 Yes [id number] 200mg Take 1 [facility] 200 mg 5-01 capsule by ity of capsule 00:00: mouth 3 (three) Medical times Branch daily as needed for Cough. albuterol 2022-0 Yes [id number] 2{puff} Inhale 2 [facility] 90 5-01 Puffs ity of mcg/actuati 00:00: every 4 [place] on inhaler 00 (four) Medical hours as Branch needed for Wheezing or Shortness of Breath. albuterol 2022-0 Yes [id number] 2.5mg Inhale 3 Univers 2.5 mg /3 5-01 mL every 4 ity of mL (0.083 00:00: (four) [place] %) 00 hours. May Medical nebulizer also Branch solution nebulize one extra every 6 hours. benzonatate 2022-0 Yes [id number] 200mg Take 1 [facility] 200 mg 5-01 capsule by ity of capsule 00:00: mouth 3 (three) Medical times Branch daily as needed for Cough. albuterol 2022-0 Yes [id number] 2{puff} Inhale 2 [facility] 90 5-01 Puffs ity of mcg/actuati 00:00: every 4 [place] on inhaler 00 (four) Medical hours as Branch needed for Wheezing or Shortness of Breath. albuterol 2022-0 Yes [id number] 2.5mg Inhale 3 Univers 2.5 mg /3 5-01 mL every 4 ity of mL (0.083 00:00: (four) [place] %) 00 hours. May Medical nebulizer also Branch solution nebulize one extra every 6 hours. benzonatate 2022-0 Yes [id number] 200mg Take 1 [facility] 200 mg 5-01 capsule by ity of capsule 00:00: mouth 3 (three) Medical times Branch daily as needed for Cough. albuterol 2022-0 Yes [id number] 2{puff} Inhale 2 [facility] 90 5-01 Puffs ity of mcg/actuati 00:00: every 4 [place] as on inhaler 00 (four) Medical hours as Branch needed for Wheezing or Shortness of Breath. albuterol 3-0 Yes [id number] 2.5mg Inhale 3 [facility] 2.5 mg /3 5-01 mL every 4 ity of mL (0.083 00:00: (four) [place] %) 00 hours. May Medical nebulizer also Branch solution nebulize one extra every 6 hours. benzonatate 2022-0 Yes [id number] 200mg Take 1 [facility] 200 mg 5-01 capsule by ity of capsule 00:00: mouth 3 [place] 00 (three) Medical times Branch daily as needed for Cough. albuterol 2022-0 Yes [id number] 2{puff} Inhale 2 [facility] 90 5-01 Puffs ity of mcg/actuati 00:00: every 4 [place] on inhaler 00 (four) Medical hours as Branch needed for Wheezing or Shortness of Breath. albuterol 2022-0 Yes [id number] 2.5mg Inhale 3 [facility] 2.5 mg /3 5-01 mL every 4 ity of mL (0.083 00:00: (four) [place] %) 00 hours. May Medical nebulizer also Branch solution nebulize one extra every 6 hours. benzonatate 2022-0 Yes [id number] 200mg Take 1 [facility] 200 mg 5-01 capsule by ity of capsule 00:00: mouth 3 (three) Medical times Branch daily as needed for Cough. albuterol 2022-0 Yes [id number] 2{puff} Inhale 2 [facility] 90 5-01 Puffs ity of mcg/actuati 00:00: every 4 [place] on inhaler 00 (four) Medical hours as Branch needed for Wheezing or Shortness of Breath. albuterol 2022-0 Yes [id number] 2.5mg Inhale 3 [facility] 2.5 mg /3 5-01 mL every 4 ity of mL (0.083 00:00: (four) [place] %) 00 hours. May Medical nebulizer also Branch solution nebulize one extra every 6 hours. benzonatate 3-0 Yes [id number] 200mg Take 1 [facility] 200 mg 5-01 capsule by ity of capsule 00:00: mouth 3 (three) Medical times Branch daily as needed for Cough. albuterol 2022-0 Yes [id number] 2{puff} Inhale 2 [facility] 90 5-01 Puffs ity of mcg/actuati 00:00: every 4 [place] inhaler 00 (four) Medical hours as Branch needed for Wheezing or Shortness of Breath. albuterol 2023-0 Yes [id number] 2.5mg Inhale 3 [facility] 2.5 mg /3 5-01 mL every 4 ity of mL (0.083 00:00: (four) [place] %) 00 hours. May Medical nebulizer also Branch solution nebulize one extra every 6 hours. benzonatate 2022-0 Yes [id number] 200mg Take 1 [facility] 200 mg 5-01 capsule by ity of capsule 00:00: mouth 3 [place] 00 (three) Medical times Branch daily as needed for Cough. albuterol 2022-0 Yes [id number] 2{puff} Inhale 2 [facility] 90 5-01 Puffs ity of mcg/actuati 00:00: every 4 [place] on inhaler 00 (four) Medical hours as Branch needed for Wheezing or Shortness of Breath. albuterol 2022-0 Yes [id number] 2.5mg Inhale 3 [facility] 2.5 mg /3 5-01 mL every 4 ity of mL (0.083 00:00: (four) [place] %) 00 hours. May Medical nebulizer also Branch solution nebulize one extra every 6 hours. benzonatate 2022-0 Yes [id number] 200mg Take 1 [facility] 200 mg 5-01 capsule by ity of capsule 00:00: mouth 3 (three) Medical times Branch daily as needed for Cough. albuterol 2022-0 Yes [id number] 2{puff} Inhale 2 [facility] 90 5-01 Puffs ity of mcg/actuati 00:00: every 4 [place] on inhaler 00 (four) Medical hours as Branch needed for Wheezing or Shortness of Breath. albuterol 2022-0 Yes [id number] 2.5mg Inhale 3 [facility] 2.5 mg /3 5-01 mL every 4 ity of mL (0.083 00:00: (four) [place] %) 00 hours. May Medical nebulizer also Branch solution nebulize one extra every 6 hours. benzonatate 2022-0 Yes [id number] 200mg Take 1 [facility] 200 mg 5-01 capsule by ity of capsule 00:00: mouth 3 [place] 00 (three) Medical times Branch daily as needed for Cough. albuterol 2022-0 Yes [id number] 2{puff} Inhale 2 [facility] 90 5-01 Puffs ity of mcg/actuati 00:00: every 4 [place] on inhaler 00 (four) Medical hours as Branch needed for Wheezing or Shortness of Breath. albuterol 3-0 Yes [id number] 2.5mg Inhale 3 [facility] 2.5 mg /3 5-01 mL every 4 ity of mL (0.083 00:00: (four) [place] %) 00 hours. May Medical nebulizer also Branch solution nebulize one extra every 6 hours. benzonatate 3-0 Yes [id number] 200mg Take 1 [facility] 200 mg 5-01 capsule by ity of capsule 00:00: mouth 3 (three) Medical times Branch daily as needed for Cough. albuterol 2022-0 Yes [id number] 2{puff} Inhale 2 [facility] 90 5-01 Puffs ity of mcg/actuati 00:00: every 4 [place] on inhaler 00 (four) Medical hours as Branch needed for Wheezing or Shortness of Breath. albuterol 2022-0 Yes [id number] 2.5mg Inhale 3 [facility] 2.5 mg /3 5-01 mL every 4 ity of mL (0.083 00:00: (four) [place] %) 00 hours. May Medical nebulizer also Branch solution nebulize one extra every 6 hours. benzonatate 2022-0 Yes [id number] 200mg Take 1 [facility] 200 mg 5-01 capsule by ity of capsule 00:00: mouth 3 (three) Medical times Branch daily as needed for Cough. albuterol 3-0 Yes [id number] 2.5mg Inhale 3 [facility] 2.5 mg /3 5-01 mL every 4 ity of mL (0.083 00:00: (four) [place] %) 00 hours. May Medical nebulizer also Branch solution nebulize one extra every 6 hours. benzonatate 3-0 Yes [id number] 200mg Take 1 [facility] 200 mg 5-01 capsule by ity of capsule 00:00: mouth 3 (three) Medical times Branch daily as needed for Cough. albuterol 3-0 Yes [id number] 2.5mg Inhale 3 [facility] 2.5 mg /3 5-01 mL every 4 ity of mL (0.083 00:00: (four) [place] %) 00 hours. May Medical nebulizer also Branch solution nebulize one extra every 6 hours. benzonatate 2023-0 Yes [id number] 200mg Take 1 [facility] 200 mg 5-01 capsule by ity of capsule 00:00: mouth 3 (three) Medical times Branch daily as needed for Cough. albuterol 2023-0 Yes [id number] 2.5mg Inhale 3 [facility] 2.5 mg /3 5-01 mL every 4 ity of mL (0.083 00:00: (four) [place] %) 00 hours. May Medical nebulizer also Branch solution nebulize one extra every 6 hours. benzonatate 3-0 Yes [id number] 200mg Take 1 [facility] 200 mg 5-01 capsule by ity of capsule 00:00: mouth 3 (three) Medical times Branch daily as needed for Cough. albuterol 3-0 Yes [id number] 2.5mg Inhale 3 [facility] 2.5 mg /3 5-01 mL every 4 ity of mL (0.083 00:00: (four) [place] %) 00 hours. May Medical nebulizer also Branch solution nebulize one extra every 6 hours. albuterol 3-0 Yes [id number] 2.5mg Inhale 3 [facility] 2.5 mg /3 5-01 mL every 4 ity of mL (0.083 00:00: (four) [place] %) 00 hours. May Medical nebulizer also Branch solution nebulize one extra every 6 hours. albuterol 2023-0 Yes [id number] 2.5mg Inhale 3 [facility] 2.5 mg /3 5-01 mL every 4 ity of mL (0.083 00:00: (four) [place] %) 00 hours. May Medical nebulizer also Branch solution nebulize one extra every 6 hours. albuterol 2023-0 Yes [id number] 2.5mg Inhale 3 [facility] 2.5 mg /3 5-01 mL every 4 ity of mL (0.083 00:00: (four) [place] %) 00 hours. May Medical nebulizer also Branch solution nebulize one extra every 6 hours. albuterol 2023-0 Yes [id number] 2.5mg Inhale 3 [facility] 2.5 mg /3 5-01 mL every 4 ity of mL (0.083 00:00: (four) [place] %) 00 hours. May Medical nebulizer also Branch solution nebulize one extra every 6 hours. albuterol 2022- Yes [id number] 2.5mg Inhale 3 [facility] 2.5 mg /3 5-01 mL every 4 ity of mL (0.083 00:00: (four) [place] %) 00 hours. May Medical nebulizer also Branch solution nebulize one extra every 6 hours. albuterol 2022- No [id number] 2.5mg Inhale 3 [facility] 2.5 mg /3 5-01 06-15 mL every 4 ity of mL (0.083 00:00: 00:00 (four) [place] %) 00 :00 hours. May Medical nebulizer also Branch solution nebulize one extra every 6 hours. benzonatate 2022- No [id number] 200mg Take 1 [facility] 200 mg 01-17- capsule by ity of capsule 00:00: 00:00 mouth 3 [place] 00 :00 (three) Medical times Branch daily as needed for Cough. albuterol 2022- No [id number] 2{puff} Inhale 2 [facility] 90 - 05-19 Puffs ity of mcg/actuati 00:00: 00:00 every 4 [place] on inhaler 00 :00 (four) Medical hours as Branch needed for Wheezing or Shortness of Breath. predniSONE 2022- No [id number] 50mg Take 1 [facility] 50 mg 01-17 05-03 tablet by ity of tablet 00:00: 00:00 mouth in [place] 00 :00 the Medical morning. Branch ipratropium 2022- No [id number] .5mg Inhale 2.5 [facility] 0.02 % 01-17 [...] by ity of tablet 14:36: mouth in [place] 57 the Medical morning Branch and 1 tablet in the evening. rivaroxaban 2023-0 Yes 15mg Take 1 Univ ers 15 mg 4-21 tablet by ity of tablet 14:36: mouth in [place] [address] the Medical morning. Branch ASPIRIN 2023-0 Yes 81mg Take 81 mg Univ ers ORAL 4-21 by mouth ity of 14:36: in the [place] [address] morning. Medical tablet Branch benazepriL 2023-0 Yes 10mg Take 1 [facility] rs 10 mg 4-21 tablet by ity of tablet 14:36: mouth in [place] [address] the Medical morning. Branch busPIRone 2023-0 Yes 10mg Take 1 Univer s 10 mg 4-21 tablet by ity of tablet 14:36: mouth in [place] [address] the Medical morning Branch and 1 tablet in the evening. rivaroxaban 2023-0 Yes 15mg Take 1 Univ ers 15 mg 4-21 tablet by ity of tablet 14:36: mouth in [place] [address] the Medical morning. Branch ASPIRIN 2023-0 Yes 81mg Take 81 mg Univ ers ORAL 4-21 by mouth ity of 14:36: in the [place] [address] morning. Medical tablet Branch benazepriL 2023-0 Yes 10mg Take 1 Unive rs 10 mg 4-21 tablet by ity of tablet 14:36: mouth in [place] [address] the Medical morning. Branch busPIRone 2023-0 Yes 10mg Take 1 Univer s 10 mg 4-21 tablet by ity of tablet 14:36: mouth in [place] [address] the Medical morning Branch and 1 tablet in the evening. rivaroxaban 2023-0 Yes 15mg Take 1 Univ ers 15 mg 4-21 tablet by ity of tablet 14:36: mouth in [place] [address] the Medical morning. Branch ASPIRIN 2023-0 Yes 81mg Take 81 mg [facility] ers ORAL 4-21 by mouth ity of 14:36: in the [place] [address] morning. Medical tablet Branch benazepriL 2023-0 Yes 10mg Take 1 Un[facility] rs 10 mg 4-21 tablet by ity of tablet 14:36: mouth in [place] [address] the Medical morning. Branch busPIRone 2023-0 Yes 10mg Take 1 Univer s 10 mg 4-21 tablet by ity of tablet 14:36: mouth in [place] [address] the Medical morning Branch and 1 tablet in the evening. rivaroxaban 2023-0 Yes 15mg Take 1 Univ ers 15 mg 4-21 tablet by ity of tablet 14:36: mouth in [place] [address] the Medical morning. Branch ASPIRIN 2023-0 Yes 81mg Take 81 mg Univ ers ORAL 4-21 by mouth ity of 14:36: in the [place] [address] morning. Medical tablet Branch benazepriL 2023-0 Yes 10mg Take 1 Unive rs 10 mg 4-21 tablet by ity of tablet 14:36: mouth in [place] [address] the Medical morning. Branch donepeziL 5 3-0 [...] Medical morning. Branch tamsulosin 2023-0 2023- No [id number] .4mg Take 1 [facility] 0.4 mg 24 3-27 -27 capsule by ity of hr capsule 00:00: 04:59 mouth in [place] 00 :00 the Medical morning Branch for 30 days. tamsulosin 2023-0 2023- No [id number] .4mg Take 1 [facility] 0.4 mg 24 3-13 01- capsule by ity of hr capsule 00:00: 04:59 mouth in [place] 00 :00 the Medical morning Branch for 30 days. tamsulosin 2023-0 2023- No [id number] .4mg Take 1 [facility] 0.4 mg 24 3-13 01- capsule by ity of hr capsule 00:00: 04:59 mouth in [place] 00 :00 the Medical morning Branch for 30 days. tamsulosin 2023-0 2023- No [id number] .4mg Take 1 [facility] 0.4 mg 24 3-13 01- capsule by ity of hr capsule 00:00: 04:59 mouth in [place] 00 :00 the Medical morning Branch for 30 days. tamsulosin 2023-0 2023- No [id number] .4mg Take 1 [facility] 0.4 mg 24 3-13 01- capsule by ity of hr capsule 00:00: 04:59 mouth in [place] 00 :00 the Medical morning Branch for 30 days. tamsulosin 2023-0 2023- No [id number] .4mg Take 1 [facility] 0.4 mg 24 [...] 12/12/22 at 1230, Until Discontinu ed, Routine
manager membership approving Restricted medication : TRAVIS ZENG busPIRone 3-0 Yes 10mg Take 1 Univer s 10 mg 3-26 tablet by ity of tablet 14:37: mouth in [place] [address] the Medical morning Branch and 1 tablet in the evening. rivaroxaban 2023-0 Yes 15mg Take 1 Univ ers (XARELTO) 3-26 tablet by ity o f 15 mg 14:37: mouth in [place] tablet 13 the Medical morning. Branch aspirin 81 3-0 Yes 81mg Take 81 mg U nivers mg chewable 3-26 by mouth ity of tablet 14:37: in the [place] [address] morning. Medical tablet Branch busPIRone 3-0 Yes 10mg Take 1 Univer s 10 mg 3-26 tablet by ity of tablet 14:37: mouth in [place] [address] the Medical morning Branch and 1 tablet in the evening. rivaroxaban 2023-0 Yes 15mg Take 1 Univ ers (XARELTO) 3-26 tablet by ity o f 15 mg 14:37: mouth in [place] tablet 13 the Medical morning. Branch busPIRone 3-0 Yes 10mg Take 1 Univer s 10 mg 3-26 tablet by ity of tablet 14:37: mouth in [place] [address] the Medical morning Branch and 1 tablet in the evening. rivaroxaban 2023-0 Yes 15mg Take 1 Univ ers (XARELTO) 3-26 tablet by ity o f 15 mg 14:37: mouth in [place] tablet 13 the Medical morning. Branch aspirin 81 3-0 Yes 81mg Take 81 mg U nivers mg chewable 3-26 by mouth ity of tablet 14:37: in the [place] [address] morning. Medical tablet Branch busPIRone 2023-0 Yes 10mg Take 1 Univer s 10 mg 3-26 tablet by ity of tablet 14:37: mouth in [place] [address] the Medical morning Branch and 1 tablet in the evening. rivaroxaban 2023-0 Yes 15mg Take 1 Univ ers (XARELTO) 3-26 tablet by ity o f 15 mg 14:37: mouth in [place] tablet 13 the Medical morning. Branch aspirin 81 Yes 81mg Take 81 mg U nivers mg chewable 12-12 by mouth ity of tablet 14:37: in the [place] 13 morning. Medical tablet Branch tamsulosin Yes .4mg 0.4 mg, Univ ers (FLOMAX) 12-12 Oral, ity of capsule 0.4 14:00: DAILY, [place] mg 00 First dose Medical on [facility] 12/12/22 at 0900, Until Discontinu ed, Routine aspirin EC Yes 81mg 81 mg, Unive rs tablet 81 12-12 Oral, ity of mg 14:00: DAILY, [place] 00 First dose Medical on [facility] 12/12/22 at 0900, Until Discontinu ed, Routine methylpredn Yes 40mg 40 mg, Univ ers isolone sod 12-12 Intravenou it y of succ 14:00: s, DAILY, [place] (SOLU-MEDRO 00 First dose Me dical L) (after Branch injection last 40 mg modificati on) on [place] 12/12/22 at 0900, Until Discontinu ed, Routine [...] mg 02:00: First dose [place] 00 on [facility] 12/11/22 at [place] [address], Until Discontinu ed, Routine atorvastati Yes 40mg 40 mg, Univ ers n (LIPITOR) 3-26 Oral, QHS, it y of tablet 40 02:00: First dose [place] mg 00 on [facility] 12/11/22 at [place] [address], Until Discontinu ed, Routine carvediloL 2022- No [id number] 3.125mg Take 1 Univers 3.125 mg 3- 04-26 tablet by ity o f tablet 00:00: 04:59 mouth in [place] 00 :00 the [facility] and 1 tablet in the evening. Take with meals. Do all this for 30 days. atorvastati 2022- No [id number] 40mg Take 1 Univers n 40 mg 3-12 01- tablet by ity of tablet 00:00: 04:59 mouth at [place] 00 :00 [facility] for 30 Branch days. donepeziL 5 2022- No [id number] 5mg Take 1 Univers mg tablet -12 01- tablet by ity of 00:00: 04:59 mouth in [place] 00 :00 [facility] for 30 days. memantine 5 2022- No [id number] 5mg Take 1 Univers mg tablet -12 01-26 tablet by ity of 00:00: 04:59 mouth in [place] 00 :00 [facility] for 30 days. carvediloL 2022- No [id number] 3.125mg Take 1 Univers 3.125 mg 3-26 -26 tablet by ity o f tablet 00:00: 04:59 mouth in [place] 00 :00 [facility] and 1 tablet in the evening. Take with meals. Do all this for 30 days. atorvastati 2022- No [id number] 40mg Take 1 Univers n 40 mg 3-26 04-26 tablet by ity of tablet 00:00: 04:59 mouth at [place] 00 :00 bannertime Medical for 30 Branch days. donepeziL 5 2022- No [id number] 5mg Take 1 Univers mg tablet -12 01- tablet by ity of 00:00: 04:59 mouth in [place] 00 :00 the [facility] morning [place] for 30 days. memantine 5 2022- No [id number] 5mg Take 1 Univers mg tablet 3-12 01- tablet by ity of 00:00: 04:59 mouth in [place] 00 :00 the [facility] morning [place] for 30 days. carvediloL 2022- No [id number] 3.125mg Take 1 Univers 3.125 mg 3-12 01-26 tablet by ity o f tablet 00:00: 04:59 mouth in [place] 00 :00 the [facility] morning Branch and 1 tablet in the evening. Take with meals. Do all this for 30 days. atorvastati 2022- No [id number] 40mg Take 1 Univers n 40 mg -12 01- tablet by ity of tablet 00:00: 04:59 mouth at [place] 00 :00 bedtime Medical for 30 Branch days. donepeziL 5 2022- No [id number] 5mg Take 1 Univers mg tablet 12-12- tablet by ity of 00:00: 04:59 mouth in [place] 00 :00 the [facility] morning [place] for 30 days. memantine 5 2022- No [id number] 5mg Take 1 Univers mg tablet -12 01- tablet by ity of 00:00: 04:59 mouth in [place] 00 :00 the [facility] morning [place] for 30 days. carvediloL 2022- No [id number] 3.125mg Take 1 Univers 3.125 mg 3-12 01- tablet by ity o f tablet 00:00: 04:59 mouth in [place] 00 :00 the [facility] morning Branch and 1 tablet in the evening. Take with meals. Do all this for 30 days. atorvastati 2022- No [id number] 40mg Take 1 Univers n 40 mg 3-12 01-26 tablet by ity of tablet 00:00: 04:59 mouth at [place] 00 :00 bedtime Medical for 30 Branch days. carvediloL 2022- No [id number] 3.125mg Take 1 [facility] 3.125 mg 3-12 01-26 tablet by ity o f tablet 00:00: 04:59 mouth in [place] 00 :00 the Medical morning Branch and 1 tablet in the evening. Take with meals. Do all this for 30 days. atorvastati 2022- No [id number] 40mg Take 1 Univers n 40 mg 3-12 01-26 tablet by ity of tablet 00:: 04:59 mouth at [place] 00 :00 bedtime [facility] for 30 Branch days. carvediloL 2022- No [id number] 3.125mg Take 1 Univers 3.125 mg 3-12 01-26 tablet by ity o f tablet 00:00: 04:59 mouth in [place] 00 :00 the [facility] morning [place] and 1 tablet in the evening. Take with meals. Do all this for 30 days. atorvastati 2022- No [id number] 40mg Take 1 Univers n 40 mg -12 01- tablet by ity of tablet 00:: 04:59 mouth at [place] 00 :00 [facility] for 30 Branch days. donepeziL 5 2022- No [id number] 5mg Take 1 Univers mg tablet -12 01- tablet by ity of 00:00: 00:00 mouth in [place] 00 :00 the [facility] morning [place] for 30 days. memantine 5 2022- No [id number] 5mg Take 1 Univers mg tablet -12 01-21 tablet by ity of 00:00: 00:00 mouth in [place] 00 :00 the [facility] morning [place] for 30 days. donepeziL 5 2022- No [id number] 5mg Take 1 Univers mg tablet -12 01-21 tablet by ity of 00:00: 00:00 mouth in [place] 00 :00 the [facility] morning [place] for 30 days. memantine 5 2022- No [id number] 5mg Take 1 Univers mg tablet -12 01-21 tablet by ity of 00:00: 00:00 mouth in [place] 00 :00 the [facility] morning [place] for 30 days. levalbutero Yes 1.25mg 1.25 mg, Univers l (XOPENEX) 3-25 Inhalation it y of nebulizer 17:00: , QID, [place] solution 00 First dose Medic al 1.25 mg (after Branch last modificati on) on [facility] 12/11/22 at 1200, Until Discontinu ed, Routine rivaroxaban 2022-0 Yes 15mg 15 mg, Univ ers (XARELTO) 3-25 Oral, ity of tablet 15 14:00: DAILY, [place] mg 00 First dose Medical on [facility] Branch 12/11/22 at 0900, Until Discontinu ed, Routine nicotine 2022-0 Yes 1{patch 1 Patch, Un igor (NICODERM) 25 } Topical, ity o f 21 mg/24 hr 13:45: Administer [place] patch 1 00 over 24 Medical Patch Hours, Branch Q24H, First dose on [facility] 12/11/22 at 0845, Until Discontinu ed, Routine ipratropium 0 Yes .5mg 0.5 mg, Uni vers (ATROVENT) 325 Inhalation ity of 0.02 % 13:00: , QID, [place] nebulizer 00 First dose Medi lucho solution on [facility] Branch 0.5 mg 12/11/22 at 0800, Until Discontinu ed carvediloL 0 Yes 3.125mg 3.125 mg, Univers (COREG) 3-25 Oral, BID ity of tablet 13:00: MEALS, [place] 3.125 mg 00 First dose Medic al on [facility] 12/11/22 at 0800, Until Discontinu ed, Routine busPIRone 0 Yes 10mg 10 mg, Univer s (BUSPAR) 3-25 Oral, BID, ity o f tablet 10 13:00: First dose [place] mg 00 on [facility] Medical 12/11/22 at Branch 0800, Until Discontinu ed, Routine methylpredn 2022- No 125mg 125 mg, U nivers isolone sod 12-11 03-25 Intravenou i ty of succ 05:00: 12:35 s, Q6H, [place] (SOLU-MEDRO 00 :32 First dose Me dical L) on [facility] Branch injection 12/11/22 at 125 mg [...] by ity of tablet 12:44: mouth in [place] [address] the Medical morning Branch and 1 tablet in the evening. Take with meals. busPIRone 2023-0 Yes 10mg Take 1 Univer s 10 mg 3-18 tablet by ity of tablet 12:44: mouth in [place] [address] the Medical morning Branch and 1 tablet in the evening. busPIRone 2023-0 Yes 30mg Take 1 Univer s 30 mg 3-18 tablet by ity of tablet 12:44: mouth in [place] [address] the Medical morning Branch and 1 tablet in the evening. KCL 20 mEq 3-0 Yes Take by Univ ers tablet 3-18 mouth 2 ity of 12:44: (two) [place] [address] times Medical daily. Branch benazepriL 3-0 Yes 10mg Take 1 Unive rs 10 mg 3-18 tablet by ity of tablet 12:44: mouth in [place] 03 the Medical morning. Branch rivaroxaban 3-0 Yes 15mg Take 1 Univ ers (XARELTO) 3-18 tablet by ity o f 15 mg 12:44: mouth in [place] tablet 03 the Medical morning. Branch carvediloL [...] 3-18 mouth 2 ity of 12:44: (two) [place] [address] times Medical daily. Branch benazepriL 2023-0 Yes 10mg Take 1 Unive rs 10 mg 3-18 tablet by ity of tablet 12:44: mouth in [place] 03 the Medical morning. Branch rivaroxaban 2023-0 Yes 15mg Take 1 Univ ers (XARELTO) 3-18 tablet by ity o f 15 mg 12:44: mouth in [place] tablet 03 the Medical morning. Branch carvediloL [...] 3-18 mouth 2 ity of 12:44: (two) [place] [address] times Medical daily. Branch benazepriL 2023-0 Yes [...] the Medical morning. Branch albuterol 2022-0 Yes [id number] 2{puff} Inhale 2 Univers 90 3-18 Puffs ity of mcg/actuati 00:00: every 6 [place] on inhaler 00 (six) Medical hours as Branch needed for Wheezing or Shortness of Breath. albuterol 2022-0 Yes [id number] 2{puff} Inhale 2 [facility] 90 3-18 Puffs ity of mcg/actuati 00:00: every 6 [place] on inhaler 00 (six) Medical hours as Branch needed for Wheezing or Shortness of Breath. albuterol 3-0 Yes [id number] 2{puff} Inhale 2 [facility] 90 3-18 Puffs ity of mcg/actuati 00:00: every 6 [place] on inhaler 00 (six) Medical hours as Branch needed for Wheezing or Shortness of Breath. albuterol Yes [id number] 2{puff} Inhale 2 [facility] 90 3-18 Puffs ity of mcg/actuati 00:00: every 6 [place] on inhaler 00 (six) Medical hours as Branch needed for Wheezing or Shortness of Breath. albuterol Yes [id number] 2{puff} Inhale 2 [facility] 90 3-18 Puffs ity of mcg/actuati 00:00: every 6 [place] on inhaler 00 (six) Medical hours as Branch needed for Wheezing or Shortness of Breath. albuterol Yes [id number] 2{puff} Inhale 2 [facility] 90 3-18 Puffs ity of mcg/actuati 00:00: every 6 [place] on inhaler 00 (six) Medical hours as Branch needed for Wheezing or Shortness of Breath. albuterol Yes [id number] 2{puff} Inhale 2 [facility] 90 3-18 Puffs ity of mcg/actuati 00:00: every 6 [place] on inhaler 00 (six) Medical hours as Branch needed for Wheezing or Shortness of Breath. albuterol Yes [id number] 2{puff} Inhale 2 [facility] 90 3-18 Puffs ity of mcg/actuati 00:00: every 6 [place] on inhaler 00 (six) Medical hours as Branch needed for Wheezing or Shortness of Breath. albuterol Yes [id number] 2{puff} Inhale 2 [facility] 90 3-18 Puffs ity of mcg/actuati 00:00: every 6 [place] on inhaler 00 (six) Medical hours as Branch needed for Wheezing or Shortness of Breath. albuterol Yes [id number] 2{puff} Inhale 2 [facility] 90 3-18 Puffs ity of mcg/actuati 00:00: every 6 [place] on inhaler 00 (six) Medical hours as Branch needed for Wheezing or Shortness of Breath. albuterol Yes [id number] 2{puff} Inhale 2 [facility] 90 3-18 Puffs ity of mcg/actuati 00:00: every 6 [place] on inhaler 00 (six) Medical hours as Branch needed for Wheezing or Shortness of Breath. albuterol Yes [id number] 2{puff} Inhale 2 [facility] 90 3-18 Puffs ity of mcg/actuati 00:00: every 6 [place] on inhaler 00 (six) Medical hours as Branch needed for Wheezing or Shortness of Breath. albuterol 2022- No [id number] 2{puff} Inhale 2 [facility] 90 3-18 05-03 Puffs ity of mcg/actuati 00:00: 00:00 every 6 [place] on inhaler 00 :00 (six) Medical hours as Branch needed for Wheezing or Shortness of Breath. tiotropium 2022- No [id number] 18ug Inhale 1 Univers 18 mcg 3-18 04-18 capsule in ity of inhalation 00:00: 04:59 the [place] 00 :00 morning Medical for 30 Branch days. tiotropium 2022- No [id number] 18ug Inhale 1 Univers 18 mcg 3-18 04-18 capsule in ity of inhalation 00:00: 04:59 the [place] 00 :00 morning Medical for 30 Branch days. tiotropium 2022- No [id number] 18ug Inhale 1 Univers 18 mcg 3-18 04-18 capsule in ity of inhalation 00:00: 04:59 the [place] 00 :00 morning Medical for 30 Branch days. tiotropium 2022- No [id number] 18ug Inhale 1 Univers 18 mcg 3-18 04-18 capsule in ity of inhalation 00:00: 04:59 the [place] 00 :00 morning Medical for 30 Branch days. tiotropium 2022- No [id number] 18ug Inhale 1 Univers 18 mcg 3-18 04-18 capsule in ity of inhalation 00:00: 04:59 the [place] 00 :00 morning Medical for 30 Branch days. tiotropium 2022- No [id number] 18ug Inhale 1 Univers 18 mcg 3-18 04-18 capsule in ity of inhalation 00:00: 04:59 the [place] 00 :00 morning Medical for 30 Branch days. tiotropium 2022- No [id number] 18ug Inhale 1 Univers 18 mcg 3-18 04-18 capsule in ity of inhalation 00:00: 04:59 the [place] 00 :00 morning Medical for 30 Branch days. tiotropium 2022-2022- No [id number] 18ug Inhale 1 Univers 18 mcg 3-18 04-18 capsule in ity of inhalation 00:00: 04:59 the [place] 00 :00 morning Medical for 30 Branch days. doxycycline 2022-0 2022- No [id number] 100mg Take 1 Univers hyclate 100 3-18 03-24 capsule by i ty of mg capsule 00:00: 04:59 mouth [place] 00 :00 every 12 Medical ([facility] [place]) Branch hours for 5 days. predniSONE 2022-0 2022- No [id number] 40mg Take 2 Univers 20 mg 3-18 03-24 tablets by ity of tablet 00:00: 04:59 mouth in [place] 00 :00 the [facility] morning Branch for 5 days. doxycycline 2022-2022- No [id number] 100mg Take 1 Univers hyclate 100 3-18 03-24 capsule by i ty of mg capsule 00:00: 04:59 mouth [place] 00 :00 every 12 Medical ([facility] [place]) Branch hours for 5 days. predniSONE 2022-0 2022- No [id number] 40mg Take 2 Univers 20 mg 3-18 03-24 tablets by ity of tablet 00:00: 04:59 mouth in [place] 00 :00 the [facility] morning Branch for 5 days. rivaroxaban Yes [...] 12-02 Oral, ity of (TYLENOL) 11:30: Q6HPRN, [place] [...] 0.02 % 10:30: 10:38 , ONCE, 1 [place] nebulizer 00 [...] mg 0530, MICHAEL Nebulizer & 0 Yes [id number] Use as Univers Compressor 3-15 directed ity o f For Neb 00:00: Medical Branch albuterol 0 Yes [id number] 2{puff} Inhale 2 Univers 90 3-15 Puffs ity of mcg/actuati 00:00: every 4 [place] as on inhaler 00 (four) Medical hours as Branch needed for Wheezing or Shortness of Breath. Nebulizer & 0 Yes [id number] Use as Univers Compressor 3-15 directed ity o f For Neb 00:00: [place] Medical Branch albuterol 2023-0 Yes [id number] 2{puff} Inhale 2 [facility] 90 3-15 Puffs ity of mcg/actuati 00:00: every 4 [place] on inhaler 00 (four) Medical hours as Branch needed for Wheezing or Shortness of Breath. Nebulizer & 2022-0 Yes [id number] Use as Univers Compressor 3-15 directed ity o f For Neb 00:00: Medical Branch albuterol 2022-0 Yes [id number] 2{puff} Inhale 2 [facility] 90 3-15 Puffs ity of mcg/actuati 00:00: every 4 [place] on inhaler 00 (four) Medical hours as Branch needed for Wheezing or Shortness of Breath. Nebulizer & 0 Yes [id number] Use as Univers Compressor 3-15 directed ity o f For Neb 00:00: Medical Branch Nebulizer & 2022-0 Yes [id number] Use as Univers Compressor 3-15 directed ity o f For Neb 00:00: Medical Branch Nebulizer & 2022-0 Yes [id number] Use as Univers Compressor 3-15 directed ity o f For Neb 00:00: Medical Branch Nebulizer & 2022-0 Yes [id number] Use as Univers Compressor 3-15 directed ity o f For Neb 00:00: Medical Branch Nebulizer & 2022-0 Yes [id number] Use as Univers Compressor 3-15 directed ity o f For Neb 00:00: Medical Branch Nebulizer & 2022-0 Yes [id number] Use as Univers Compressor 3-15 directed ity o f For Neb 00:00: Medical Branch Nebulizer & 2022-0 Yes [id number] Use as Univers Compressor 3-15 directed ity o f For Neb 00:00: Medical Branch Nebulizer & 2022-0 Yes [id number] Use as Univers Compressor 3-15 directed ity o f For Neb 00:00: Medical Branch Nebulizer & 2022-0 Yes [id number] Use as Univers Compressor 3-15 directed ity o f For Neb 00:00: Medical Branch Nebulizer & 2022-0 Yes [id number] Use as Univers Compressor 3-15 directed ity o f For Neb 00:00: Medical Branch Nebulizer & 3-0 Yes [id number] Use as Univers Compressor 3-15 directed ity o f For Neb 00:00: Medical Branch Nebulizer & 2022-0 Yes [id number] Use as Univers Compressor 3-15 directed ity o f For Neb 00:00: Medical Branch Nebulizer & 3-0 Yes [id number] Use as Univers Compressor 3-15 directed ity o f For Neb 00:00: Medical Branch Nebulizer & 3-0 Yes [id number] Use as Univers Compressor 3-15 directed ity o f For Neb 00:00: Medical Branch Nebulizer & 2022-0 Yes [id number] Use as Univers Compressor 3-15 directed ity o f For Neb 00:00: Medical Branch Nebulizer & 2022-0 Yes [id number] Use as Univers Compressor 3-15 directed ity o f For Neb 00:00: Medical Branch Nebulizer & 2022-0 Yes [id number] Use as Univers Compressor 3-15 directed ity o f For Neb 00:00: Medical Branch Nebulizer & 2022-0 Yes [id number] Use as Univers Compressor 3-15 directed ity o f For Neb 00:00: Medical Branch Nebulizer & 2022-0 Yes [id number] Use as Univers Compressor 3-15 directed ity o f For Neb 00:00: Medical Branch Nebulizer & 2022-0 Yes [id number] Use as Univers Compressor 3-15 directed ity o f For Neb 00:00: Medical Branch Nebulizer & 2022-0 Yes [id number] Use as Univers Compressor 3-15 directed ity o f For Neb 00:00: Medical Branch Nebulizer & 2022-0 Yes [id number] Use as Univers Compressor 3-15 directed ity o f For Neb 00:00: Medical Branch Nebulizer & 2022-0 Yes [id number] Use as Univers Compressor 3-15 directed ity o f For Neb 00:00: Medical Branch Nebulizer & 2022-0 Yes [id number] Use as Univers Compressor 3-15 directed ity o f For Neb 00:00: Medical Branch Nebulizer & 2022-0 Yes [id number] Use as Univers Compressor 3-15 directed ity o f For Neb 00:00: Medical Branch Nebulizer & 2022-0 Yes [id number] Use as Univers Compressor 3-15 directed ity o f For Neb 00:00: Medical Branch Nebulizer & 2022-0 Yes [id number] Use as Univers Compressor 3-15 directed ity o f For Neb 00:00: Medical Branch Nebulizer & 2022-0 Yes [id number] Use as Univers Compressor 3-15 directed ity o f For Neb 00:00: Medical Branch Nebulizer & 2022-0 Yes [id number] Use as Univers Compressor 3-15 directed ity o f For Neb 00:00: Medical Branch Nebulizer & 2022-0 Yes [id number] Use as Univers Compressor 3-15 directed ity o f For Neb 00:00: Medical Branch Nebulizer & 2022-0 Yes [id number] Use as Univers Compressor 3-15 directed ity o f For Neb 00:00: Medical Branch Nebulizer & 2022-0 Yes [id number] Use as Univers Compressor 3-15 directed ity o f For Neb 00:00: Medical Branch Nebulizer & 2022-0 Yes [id number] Use as Univers Compressor 3-15 directed ity o f For Neb 00:00: Medical Branch Nebulizer & 2022-0 Yes [id number] Use as Univers Compressor 3-15 directed ity o f For Neb 00:00: Medical Branch Nebulizer & 2022-0 Yes [id number] Use as Univers Compressor 3-15 directed ity o f For Neb 00:00: Medical Branch albuterol 0 Yes [id number] 2{puff} Inhale 2 Univers 90 3-15 Puffs ity of mcg/actuati 00:00: every 4 [place] on inhaler 00 (four) Medical hours as Branch needed for Wheezing or Shortness of Breath. predniSONE 2022-0 Yes [id number] 50mg Take 1 Univers 50 mg 3-15 tablet by ity of tablet 00:00: mouth in [place] 00 the Medical morning. Branch Nebulizer & Yes [id number] Use as Univers Compressor 3-15 directed ity o f For Neb 00:00: [place] K[place] 00 Medical Branch albuterol Yes [id number] 2{puff} Inhale 2 Univers 90 3-15 Puffs ity of mcg/actuati 00:00: every 4 [place] on inhaler 00 (four) Medical hours as Branch needed for Wheezing or Shortness of Breath. albuterol 2022- No [id number] 2{puff} Inhale 2 Univers 90 3-15 03-26 Puffs ity of mcg/actuati 00:00: 00:00 every 4 [place] on inhaler 00 :00 (four) Medical hours as Branch needed for Wheezing or Shortness of Breath. predniSONE 2022- No [id number] 50mg Take 1 Univers 50 mg 12-01 03-18 tablet by ity of tablet 00:00: 00:00 mouth in [place] 00 :00 the Medical morning. Branch omeprazole 2022- No 40mg Take 40 mg Univers 40 mg 11-28-12 by mouth ity of capsule 14:11: 00:00 daily. [place] : Medical Branch carvediloL 2022- No 25mg Take 25 mg Univers 25 mg 11-28-12 by mouth 2 ity of tablet 14:11: 00:00 (two) [place] 21 :00 times Medical daily with Branch [...] mg (after Branch last modificati on) on [place] 11/28/22 at 0800, Until Discontinu ed, Routine ipratropium 2023-0 Yes .5mg 0.5 mg, Uni vers (ATROVENT) 3-11 Inhalation ity of 0.02 % 20:00: , TID, [place] nebulizer 00 First dose Medi lucho solution (after Branch 0.5 mg last modificati on) on [facility] 11/27/22 at 1400, Until Discontinu ed, Routine nicotine 3-0 Yes 1{patch 1 Patch, Un igor (NICODERM) 3 } Topical, ity o f 21 mg/24 hr 17:30: Administer [place] patch 1 00 over 24 Medical Patch Hours, Branch Q24H, First dose on [facility] 11/27/22 at 1130, Until Discontinu ed, Routine busPIRone 2022-0 Yes 10mg 10 mg, Univer s (BUSPAR) 3-11 Oral, TID, ity o f tablet 10 16:15: First dose [place] mg 00 on [facility] Medical 11/27/22 at Branch 1015, Until Discontinu ed, Routine aspirin 2023-0 Yes 81mg 81 mg, Univers chewable 11-27 Oral, ity of tablet 81 16:15: DAILY, [place] mg 00 First dose Medical on [facility] 11/27/22 at 1015, Until Discontinu ed, Routine foLIC acid 2022-0 Yes 1mg 1 mg, Univer s (FOLATE) 3 Oral, ity of tablet 1 mg 15:00: DAILY, [place] 00 First dose Medical on [facility] Branch 11/27/22 at 0900, Until Discontinu ed, Routine rivaroxaban 2023-0 Yes 20mg 20 mg, Univ ers (XARELTO) 3-11 Oral, ity of tablet 20 15:00: DAILY, [place] mg 00 First dose Medical on [facility] Branch 11/27/22 at 0900, Until Discontinu ed, Routine omeprazole 2023-0 Yes 40mg 40 mg, Unive rs (PRILOSEC) 3-11 Oral, ity of capsule 40 15:00: DAILY, [place] mg 00 First dose Medical on [facility] 11/27/22 at 0900, Until Discontinu ed predniSONE 2022- No 40mg 40 mg, Univ ers (DELTASONE) 11-2716 Oral, ity of tablet 40 15:00: 13:59 DAILY, 5 [place] mg 00 :00 doses, Medical First dose Branch on [facility] 11/27/22 at 0900, Last dose on Tue12/01/22 at 0900, Routine carvediloL Yes 25mg 25 mg, Unive rs (COREG) 11-27 Oral, BID ity of tablet 25 14:00: MEALS, [place] mg 00 First dose Medical on [facility] 11/27/22 at 0800, Until Discontinu ed, Routine levalbutero 2022- No .31mg 0.31 mg, Univers l (XOPENEX) 11-2712 Inhalation i ty of nebulizer 14:00: 12:33 , TID, [place] solution 00 :58 First dose Medic al 0.31 mg on [facility] 11/27/22 at 0800, Until Discontinu ed, Routine ipratropium 2022- No .5mg 0.5 mg, Un igor (ATROVENT) 11-27 Inhalation it y of 0.02 % 14:00: 18:48 , QID, [place] nebulizer 00 :56 First dose Medi lucho solution on [facility] 0.5 mg 11/27/22 at 0800, Until Discontinu ed, Routine thiamine Yes 100mg 100 mg, Unive rs (VITAMIN 11-27 Oral, ity of B1) tablet 08:30: DAILY, [place] 100 mg 00 First dose Medical (after Branch last modificati on) on [facility] 11/27/22 at 0230, Until Discontinu ed, Routine LORazepam Yes 1mg 1 mg, Slow Un ig[facility] (ATIVAN) 11-27 IV Push, ity of injection 1 08:16: Q4HPRN, [place] mg 19 Starting Medical on [facility] 11/27/22 at 0216, Until Discontinu ed, Routine, [...] at 2000, Routine thiamine 3-0 2022- No [id number] 100mg Take 1 Univers 100 mg 2-24 -27 tablet by ity of tablet 00:00: 04:59 mouth in [place] 00 :00 [facility] for 30 days. thiamine 2022-0 3- No [id number] 100mg Take 1 Univers 100 mg 2-24 -27 tablet by ity of tablet 00:00: 04:59 mouth in [place] 00 :00 [facility] for 30 days. thiamine 202-0 2023- No [id number] 100mg Take 1 Univers 100 mg 2-24 -27 tablet by ity of tablet 00:00: 04:59 mouth in [place] 00 :00 [facility] for 30 days. thiamine 2023-0 2023- No [id number] 100mg Take 1 Univers 100 mg 2-24 -27 tablet by ity of tablet 00:00: 04:59 mouth in [place] 00 :00 [facility] for 30 days. thiamine 2023-0 2023- No [id number] 100mg Take 1 Univers 100 mg 2-24 -27 tablet by ity of tablet 00:00: 04:59 mouth in [place] 00 :00 [facility] for 30 days. thiamine 2023-0 2023- No [id number] 100mg Take 1 Univers 100 mg 2-24 03-12 tablet by ity of tablet 00:00: 00:00 mouth in [place] 00 :00 the [facility] Branch for 30 days. thiamine 2023-0 Yes 100mg 100 mg, Unive rs (VITAMIN 2-23 Oral, ity of B1) tablet 15:00: DAILY, [place] 100 mg 00 First dose Medical on [facility] Branch 11/11/22 at 0900, Until Discontinu ed, Routine omeprazole 2023-0 Yes 40mg Take 40 mg U nivers 40 mg 2-23 by mouth ity of capsule 13:41: daily. [address] carvediloL 2023-0 Yes 25mg Take 25 mg U nivers 25 mg 2-23 by mouth 2 ity of tablet 13:41: (two) [place] [address] times Medical daily with Branch meals. busPIRone 2023-0 Yes 30mg Take 30 mg [place] 30 mg 2-23 by mouth 2 ity of tablet 13:41: (two) [place] [address] times Medical daily. Branch benazepriL 2023-0 Yes 10mg Take 10 mg U nivers 10 mg 2-23 by mouth ity of tablet 13:41: daily. [address] hydroCHLORO 2023-0 Yes 25mg Take 25 mg Univers thiazide 25 2-23 by mouth ity of mg tablet 13:41: daily. [address] omeprazole 2023-0 Yes 40mg Take 40 mg U nivers 40 mg 2-23 by mouth ity of capsule 13:41: daily. [address] carvediloL 2023-0 Yes 25mg Take 25 mg U nivers 25 mg 2-23 by mouth 2 ity of tablet 13:41: (two) [place] [address] times Medical daily with Branch meals. busPIRone 2023-0 Yes 30mg Take 30 mg [place] 30 mg 2-23 by mouth 2 ity of tablet 13:41: (two) [place] [address] times Medical daily. Branch benazepriL 2023-0 Yes 10mg Take 10 mg U nivers 10 mg 2-23 by mouth ity of tablet 13:41: daily. [address] hydroCHLORO 2023-0 Yes 25mg Take 25 mg Univers thiazide 25 2-23 by mouth ity of mg tablet 13:41: daily. [address] omeprazole 2023-0 Yes 40mg Take 40 mg U nivers 40 mg 2-23 by mouth ity of capsule 13:41: daily. [address] carvediloL 2023-0 Yes 25mg Take 25 mg U nivers 25 mg 2-23 by mouth 2 ity of tablet 13:41: (two) [place] [address] times Medical daily with Branch meals. busPIRone 2023-0 Yes 30mg Take 30 mg [place] 30 mg 2-23 by mouth 2 ity of tablet 13:41: (two) [place] [address] times Medical daily. Branch benazepriL 2023-0 Yes 10mg Take 10 mg U nivers 10 mg 2-23 by mouth ity of tablet 13:41: daily. [address] hydroCHLORO 2023-0 Yes 25mg Take 25 mg Univers thiazide 25 2-23 by mouth ity of mg tablet 13:41: daily. [address] omeprazole 2023-0 Yes 40mg Take 40 mg U nivers 40 mg 2-23 by mouth ity of capsule 13:41: daily. [address] carvediloL 2023-0 Yes 25mg Take 25 mg U nivers 25 mg 2-23 by mouth 2 ity of tablet 13:41: (two) [place] [address] times Medical daily with Branch meals. busPIRone 2023-0 Yes 30mg Take 30 mg [place] 30 mg 2-23 by mouth 2 ity of tablet 13:41: (two) [place] [address] times Medical daily. Branch benazepriL 2023-0 Yes 10mg Take 10 mg U nivers 10 mg 2-23 by mouth ity of tablet 13:41: daily. [address] hydroCHLORO 2023-0 Yes 25mg Take 25 mg Univers thiazide 25 2-23 by mouth ity of mg tablet 13:41: daily. [address] omeprazole 2023-0 Yes 40mg Take 40 mg U nivers 40 mg 2-23 by mouth ity of capsule 13:41: daily. [address] carvediloL 2023-0 Yes 25mg Take 25 mg U nivers 25 mg 2-23 by mouth 2 ity of tablet 13:41: (two) [place] [address] times Medical daily with Branch meals. busPIRone 2023-0 Yes 30mg Take 30 mg [place] 30 mg 2-23 by mouth 2 ity of tablet 13:41: (two) [place] [address] times Medical daily. Branch benazepriL 2023-0 Yes 10mg Take 10 mg U nivers 10 mg 2-23 by mouth ity of tablet 13:41: daily. [address] Branch hydroCHLORO 0 Yes 25mg Take 25 mg Univers thiazide 25 2-23 by mouth ity of mg tablet 13:41: daily. [address] foLIC acid 0 2022- No 1mg 1 mg, Unive rs (FOLATE) 2-11 11- Oral, ity of tablet 1 mg 00:15: 00:26 ONCE, 1 [place] 00 :00 dose, On Medical Wed Branch 11/10/22 at 1815, Routine benzocaine- 0 Yes [id number] 1{lozen Take 1 Univers menthoL 2-23 ge} Lozenge by ity of lozenge 00:00: mouth [place] [id number] every 4 Medical (four) Branch hours as needed for Sore throat. budesonide- Yes [id number] 2{puff} Inhale 2 Univers formoteroL 2-23 Puffs in ity o f 80-4.5 00:00: the [facility]/actuati morning Medic al on inhaler and 2 Branch Puffs in the evening. benzocaine- Yes [id number] 1{lozen Take 1 Univers menthoL 2-23 ge} Lozenge by ity of lozenge 00:00: mouth [place] 00 every 4 Medical (four) Branch hours as needed for Sore throat. budesonide- Yes [id number] 2{puff} Inhale 2 Univers formoteroL 2-23 Puffs in ity o f 80-4.5 00:00: the [facility]/actuati morning Medic al on inhaler and 2 Branch Puffs in the evening. benzocaine- Yes [id number] 1{lozen Take 1 Univers menthoL 2-23 ge} Lozenge by ity of lozenge 00:00: mouth [place] every 4 Medical (four) Branch hours as needed for Sore throat. budesonide- Yes [id number] 2{puff} Inhale 2 Univers formoteroL 2-23 Puffs in ity o f 80-4.5 00:00: the [place] mcg/actuati morning Medic al on inhaler and 2 Branch Puffs in the evening. benzocaine- 2022-0 Yes [id number] 1{lozen Take 1 Univers menthoL 2-23 ge} Lozenge by ity of lozenge 00:00: mouth [place] 00 every 4 Medical (four) Branch hours as needed for Sore throat. budesonide- 2022-0 Yes [id number] 2{puff} Inhale 2 Univers formoteroL 2-23 Puffs in ity o f 80-4.5 00:00: the [place] mcg/actuati 00 morning Medic al on inhaler and 2 Branch Puffs in the evening. benzocaine- 2022-0 Yes [id number] 1{lozen Take 1 Univers menthoL 2-23 ge} Lozenge by ity of lozenge 00:00: mouth [place] 00 every 4 Medical (four) Branch hours as needed for Sore throat. budesonide- 2022-0 Yes [id number] 2{puff} Inhale 2 Univers formoteroL 2-23 Puffs in ity o f 80-4.5 00:00: the [place] mcg/actuati 00 morning Medic al on inhaler and 2 Branch Puffs in the evening. benzocaine- 0 2022- No [id number] 1{lozen Take 1 Univers menthoL 2-23 03-12 ge} Lozenge by ity o f lozenge 00:00: 00:00 mouth [place] 00 :00 every 4 Medical (four) Branch hours as needed for Sore throat. budesonide- 0 2022- No [id number] 2{puff} Inhale 2 Univers formoteroL 2-23 03-12 Puffs in ity of 80-4.5 00:00: 00:00 the [place] mcg/actuati 00 :00 morning Medic al on inhaler and 2 Branch Puffs in the evening. sodium 2022-2022- No [id number] 1g Take 1 Uni vers chloride 1 2-23 03-06 tablet by ity of gram tablet 00:00: 05:59 mouth in [place] 00 :00 the Medical morning Branch and 1 tablet at noon and 1 tablet in the evening. Take with meals. Do all this for 10 days. sodium 2022-0 2022- No [id number] 1g Take 1 Uni vers chloride 1 2-23 03-06 tablet by ity of gram tablet 00:00: 05:59 mouth in [place] 00 :00 the [facility] and 1 tablet at noon and 1 tablet in the evening. Take with meals. Do all this for 10 days. sodium 2023-0 3- No [id number] 1g Take 1 Uni vers chloride 1 11-11- tablet by ity of gram tablet 00:00: 05:59 mouth in [place] 00 :00 the [facility] and 1 tablet at noon and 1 tablet in the evening. Take with meals. Do all this for 10 days. sodium 2023-0 2023- No [id number] 1g Take 1 Uni vers chloride 1 11-11- tablet by ity of gram tablet 00:00: 05:59 mouth in [place] 00 :00 the [facility] and 1 tablet at noon and 1 tablet in the evening. Take with meals. Do all this for 10 days. levoFLOXaci 2023-0 2023- No [id number] 750mg Take 1 Univers n 750 mg 11-11 tablet by ity o f tablet 00:00: 05:59 mouth [place] 00 :00 every 24 Medical ([facility]) hours for 5 days. levoFLOXaci 2023-0 3- No [id number] 750mg Take 1 Univers n 750 mg 11-11 tablet by ity o f tablet 00:00: 05:59 mouth [place] 00 :00 every 24 Medical ([facility]) hours for 5 days. predniSONE 2023-0 2023- No [id number] 40mg Take 2 Univers 20 mg 11-11- tablets by ity of tablet 00:00: 05:59 mouth in [place] 00 :00 [facility] for 3 days. predniSONE 2023-0 2023- No [id number] 40mg Take 2 Univers 20 mg 2-11 11-27 tablets by ity of tablet 00:00: 05:59 mouth in [place] 00 :00 [facility] for 3 days. sodium 3-0 Yes 1g 1 g, Oral, Unive rs chloride 2- TID MEALS, ity o f tablet 1 g 23:15: First dose [place] 00 on Tue11/10/22 at [place] 1715, Until Discontinu ed, Routine benzocaine- 2022-0 Yes 1{lozen 1 Lozenge, Univers menthoL 2-22 ge} Oral, ity of (CEPACOL 20:49: Q4HPRN, [place] SORE THROAT 25 Starting Medi lucho (JACINTO-MEN)) [...] First dose [place] mg 00 on [facility] 11/09/22 at Branch 1999, Until Discontinu ed, Routine carvediloL 2022-0 Yes 25mg 25 mg, Unive rs (COREG) - Oral, BID ity of tablet 25 23:00: MEALS, [place] mg 00 First dose Medical on [facility] 11/09/22 at 1700, Until Discontinu ed, Routine ipratropium 2022-0 Yes .5mg 0.5 mg, Uni vers (ATROVENT) 2-21 Inhalation ity of 0.02 % 22:00: , Q4H, [place] nebulizer 00 First dose Medi lucho solution on [facility] 0.5 mg 11/09/22 at 1600, Until Discontinu ed, Routine albuterol 2022-0 Yes 2.5mg 2.5 mg, Univ ers (PROVENTIL) 2-21 Inhalation it y of 2.5 mg /3 22:00: , Q4H, [place] mL (0.083 00 First dose Medi lucho %) on [facility] nebulizer 11/09/22 at solution 1600, 2.5 [...] acetaminoph 2022-0 Yes 650mg 650 mg, Un gior en 11-09 Oral, ity of (TYLENOL) 20:04: Q6HPRN, [place] tablet 650 07 Starting Medic al mg on [facility] Branch 11/09/22 at 1404, Until Discontinu ed, Routine, Pain (scale 1-3), Temp > 38 C albuterol 2022-0 2023- No 5mg 5 mg, Univer s (PROVENTIL) 11-09 Inhalation i ty of 2.5 mg /3 14:00: 14:05 , ONCE, 1 [place] mL (0.083 00 :00 dose, On Medica l %) [facility] nebulizer 11/09/22 at solution 5 0800, STAT mg albuterol 2022-0 2022- No 10mg 10 mg, Unive rs (PROVENTIL) 11-09 Inhalation i ty of 2.5 mg /3 11:00: 11:04 , ONCE, 1 [place] mL (0.083 00 :00 dose, On Medica l %) [facility] nebulizer 11/09/22 at solution 10 0500, STAT mg ipratropium 2022-0 2022- No .5mg 0.5 mg, [place] (ATROVENT) 11-09 Inhalation it y of 0.02 % 09:00: 08:59 , ONCE, 1 [place] nebulizer 00 :00 dose, On Medica l solution [facility] Branch 0.5 mg 11/09/22 at 0300, MICHAEL [...] 0145, STAT 2.5 mg cephALEXin 2020-0 Yes [id number] 500mg Take 1 Univers (KEFLEX) 05-22 capsule by ity o f 500 mg 00:00: mouth 4 [place] capsule 00 (four) Medical times Branch daily. cephALEXin 2020-0 Yes [id number] 500mg Take 1 Univers (KEFLEX) 05-22 capsule by ity o f 500 mg 00:00: mouth 4 [place] capsule 00 (four) Medical times Branch daily. cephALEXin 2020-0 2022- No [id number] 500mg Take 1 Univers (KEFLEX) 9-03 02-23 [...] mouth 2 ity of tablet 18:38: (two) [address] daily with Branch meals. busPIRone 2020-0 Yes 30mg Take 30 mg [place] 30 mg 3-26 by mouth 2 ity of tablet 18:38: (two) [address] daily. Branch benazepriL 2020-0 Yes 10mg Take 10 mg U nivers 10 mg 3-26 by mouth ity of tablet 18:38: daily. [address] hydroCHLORO 2020-0 Yes 25mg Take 25 mg Univers thiazide 25 3-26 by mouth ity of mg tablet 18:38: daily. [address] carvediloL 2020-0 Yes 25mg Take 25 mg U nivers 25 mg 3-26 by mouth 2 ity of tablet 18:38: (two) [address] daily with Branch meals. busPIRone 2020-0 Yes 30mg Take 30 mg [place] 30 mg 3-26 by mouth 2 ity of tablet 18:38: (two) [address] daily. Branch benazepriL 2020-0 Yes 10mg Take 10 mg U nivers 10 mg 3-26 by mouth ity of tablet 18:38: daily. [address] hydroCHLORO 2020-0 Yes 25mg Take 25 mg Univers thiazide 25 3-26 by mouth ity of mg tablet 18:38: daily. [address] carvediloL 2020-0 Yes 25mg Take 25 mg U nivers 25 mg 3-26 by mouth 2 ity of tablet 18:38: (two) [place] [address] times Medical daily with Branch meals. busPIRone 2021-0 Yes 30mg Take 30 mg [place] 30 mg 3-26 by mouth 2 ity of tablet 18:38: (two) [place] 04 times Medical daily. Branch benazepriL 2021-0 Yes 10mg Take 10 mg U nivers 10 mg 3-26 by mouth ity of tablet 18:38: daily. [address] hydroCHLORO 2021-0 Yes 25mg Take 25 mg Univers thiazide 25 3-26 by mouth ity of mg tablet 18:38: daily. [address] carvediloL 2021-0 Yes 25mg Take 25 mg U nivers 25 mg 3-26 by mouth 2 ity of tablet 18:38: (two) [place] [address] times Medical daily with Branch meals. busPIRone 2021-0 Yes 30mg Take 30 mg [place] 30 mg 3-26 by mouth 2 ity of tablet 18:38: (two) [place] [address] times Medical daily. Branch benazepriL 2021-0 Yes 10mg Take 10 mg U nivers 10 mg 3-26 by mouth ity of tablet 18:38: daily. [address] hydroCHLORO 2021-0 Yes 25mg Take 25 mg [facility] thiazide 25 3-26 by mouth ity of mg tablet 18:38: daily. [address] carvediloL 2021-0 Yes 25mg Take 25 mg U nivers 25 mg 3-26 by mouth 2 ity of tablet 18:38: (two) [place] [address] times Medical daily with Branch meals. busPIRone 2021-0 Yes 30mg Take 30 mg [place] 30 mg 3-26 by mouth 2 ity of tablet 18:38: (two) [place] 04 times Medical daily. Branch benazepriL 2021-0 Yes 10mg Take 10 mg U nivers 10 mg 3-26 by mouth ity of tablet 18:38: daily. [address] hydroCHLORO 2021-0 Yes 25mg Take 25 mg [facility] thiazide 25 3-26 by mouth ity of mg tablet 18:38: daily. [address] carvediloL 2021-0 Yes 25mg Take 25 mg U nivers 25 mg 3-26 by mouth 2 ity of tablet 18:38: (two) [place] [address] times Medical daily with Branch meals. busPIRone 2021-0 Yes 30mg Take 30 mg [place] 30 mg 3-26 by mouth 2 ity of tablet 18:38: (two) [place] [address] times Medical daily. Branch benazepriL 2021-0 Yes 10mg Take 10 mg U nivers 10 mg 3-26 by mouth ity of tablet 18:38: daily. [address] hydroCHLORO 2021-0 Yes 25mg Take 25 mg [facility] thiazide 25 3-26 by mouth ity of mg tablet 18:38: daily. [address] carvediloL 2021-0 Yes 25mg Take 25 mg U nivers 25 mg 3-26 by mouth 2 ity of tablet 18:38: (two) [place] [address] times Medical daily with Branch meals. busPIRone 2021-0 Yes 30mg Take 30 mg [place] 30 mg 3-26 by mouth 2 ity of tablet 18:38: (two) [place] [address] times Medical daily. Branch benazepriL 2021-0 Yes 10mg Take 10 mg U nivers 10 mg 3-26 by mouth ity of tablet 18:38: daily. [address] hydroCHLORO 2021-0 Yes 25mg Take 25 mg [facility] thiazide 25 3-26 by mouth ity of mg tablet 18:38: daily. [address] carvediloL 2021-0 Yes 25mg Take 25 mg U nivers 25 mg 3-26 by mouth 2 ity of tablet 18:38: (two) [place] [address] times Medical daily with Branch meals. busPIRone 2021-0 Yes 30mg Take 30 mg [place] 30 mg 3-26 by mouth 2 ity of tablet 18:38: (two) [place] [address] times Medical daily. Branch benazepriL 2021-0 Yes 10mg Take 10 mg U nivers 10 mg 3-26 by mouth ity of tablet 18:38: daily. [address] hydroCHLORO 2021-0 Yes 25mg Take 25 mg [facility] thiazide 25 3-26 by mouth ity of mg tablet 18:38: daily. [address] carvediloL 2021-0 Yes 25mg Take 25 mg U nivers 25 mg 3-26 by mouth 2 ity of tablet 18:38: (two) [place] [address] times Medical daily with Branch meals. busPIRone 2021-0 Yes 30mg Take 30 mg [place] 30 mg 3-26 by mouth 2 ity of tablet 18:38: (two) [place] 04 times Medical daily. Branch benazepriL 1-0 Yes 10mg Take 10 mg U nivers 10 mg 3-26 by mouth ity of tablet 18:38: daily. [address] hydroCHLORO 2020-0 Yes 25mg Take 25 mg [facility] thiazide 25 3-26 by mouth ity of mg tablet 18:38: daily. [address] carvediloL 2020-0 Yes 25mg Take 25 mg U nivers 25 mg 3-26 by mouth 2 ity of tablet 18:38: (two) [place] times Medical daily with Branch meals. busPIRone 1-0 Yes 30mg Take 30 mg [place] 30 mg 3-26 by mouth 2 ity of tablet 18:38: (two) [place] [address] times Medical daily. Branch benazepriL 2020-0 Yes 10mg Take 10 mg U nivers 10 mg 3-26 by mouth ity of tablet 18:38: daily. [address] hydroCHLORO 2020-0 Yes 25mg Take 25 mg [facility] thiazide 25 3-26 by mouth ity of mg tablet 18:38: daily. [address] carvediloL 2020-0 Yes 25mg Take 25 mg U nivers 25 mg 3-26 by mouth 2 ity of tablet 18:38: (two) [place] [address] times Medical daily with Branch meals. busPIRone 1-0 Yes 30mg Take 30 mg [place] 30 mg 3-26 by mouth 2 ity of tablet 18:38: (two) [place] [address] times Medical daily. Branch benazepriL 1-0 Yes 10mg Take 10 mg U nivers 10 mg 3-26 by mouth ity of tablet 18:38: daily. [address] hydroCHLORO 1-0 Yes 25mg Take 25 mg [facility] thiazide 25 3-26 by mouth ity of mg tablet 18:38: daily. [address] carvediloL 2021-0 Yes 25mg Take 25 mg U nivers 25 mg 3-26 by mouth 2 ity of tablet 18:38: (two) [place] [address] times Medical daily with Branch meals. busPIRone 2021-0 Yes 30mg Take 30 mg [place] 30 mg 3-26 by mouth 2 ity of tablet 18:38: (two) [place] 04 times Medical daily. Branch benazepriL 2021-0 Yes 10mg Take 10 mg U nivers 10 mg 3-26 by mouth ity of tablet 18:38: daily. [address] hydroCHLORO 2021-0 Yes 25mg Take 25 mg [facility] thiazide 25 3-26 by mouth ity of mg tablet 18:38: daily. [address] carvediloL 2021-0 Yes 25mg Take 25 [...] by mouth ity of tablet 18:38: daily. [address] hydroCHLORO 2021-0 Yes 25mg Take 25 mg [facility] thiazide 25 3-26 by mouth ity of mg tablet 18:38: daily. [address] carvediloL 2021-0 Yes 25mg Take 25 mg U nivers 25 mg 3-26 by mouth 2 ity of tablet 18:38: (two) [place] [address] times Medical daily with Branch meals. busPIRone 2021-0 Yes 30mg Take 30 mg [place] 30 mg 3-26 by mouth 2 ity of tablet 18:38: (two) [place] 04 times Medical daily. Branch benazepriL 2021-0 Yes 10mg Take 10 mg U nivers 10 mg 3-26 by mouth ity of tablet 18:38: daily. [address] hydroCHLORO 2021-0 Yes 25mg Take 25 mg [facility] thiazide 25 3-26 by mouth ity of mg tablet 18:38: daily. [address] carvediloL 2021-0 Yes 25mg Take 25 mg U nivers 25 mg 3-26 by mouth 2 ity of tablet 18:38: (two) [place] [address] times Medical daily with Branch meals. busPIRone 2021-0 Yes 30mg Take 30 mg [place] 30 mg 3-26 by mouth 2 ity of tablet 18:38: (two) [place] 04 times Medical daily. [place] benazepriL Yes 10mg Take 10 mg U nivers 10 mg - by mouth ity of tablet 18:38: daily. [address] Branch hydroCHLORO Yes 25mg Take 25 mg [facility] thiazide 25 -26 by mouth ity of mg tablet 18:38: daily. [address] Branch iohexol 2020- No [id number] 120mL 120 mL, Univers (OMNIPAQUE 12-12 Intravenou it y of 350 17:30: 17:21 s, ONCE, 1 [place] BULK-150 00 :00 dose, Fri Medica l mL) 12/12/20 at Branch injection 1230, 120 mL Routine aspirin 81 2020- No 81mg Take 81 mg Univers mg EC 12-12 by mouth ity of tablet 16:57: 00:00 daily. [place] 40 :00 [facility] Branch varenicline 2020- No 1mg Take 1 mg Univers (CHANTIX) 1 12-12 by mouth 2 i ty of mg tablet 16:57: 00:00 (two) [place] 18 :00 times Medical daily. Branch predniSONE 2020- No 20mg Take 20 mg Univers 20 mg 12-12 by mouth ity of tablet 16:57: 00:00 daily. [place] 12 :00 Medical Branch fluticasone 2020- No 1{puff} Inhale 1 Univers -umeclidin- 12-12 Puff ity of vilanter 16:56: 00:00 daily. [place] (TRELEGY 46 :00 Medical ELLIPTA) Branch 100-62.5-25 mcg DsDv cefpodoxime Yes [id number] 100mg Take 1 Univers 100 mg -26 tablet by ity of tablet 00:00: mouth 2 [place] 00 (two) Medical times [place] daily. cefpodoxime 0 Yes [id number] 100mg Take 1 Univers 100 mg 3-26 tablet by ity of tablet 00:00: mouth 2 [place] 00 (two) Medical times [place] daily. cefpodoxime 0 Yes [id number] 100mg Take 1 Univers 100 mg -26 tablet by ity of tablet 00:00: mouth 2 [place] 00 (two) Medical times Branch daily. cefpodoxime 2021-0 Yes [id number] 100mg Take 1 [facility] 100 mg 3-26 tablet by ity of tablet 00:00: mouth [place] (two) Medical times Branch daily. cefpodoxime 2021-0 Yes [id number] 100mg Take 1 [facility] 100 mg 3-26 tablet by ity of tablet 00:00: mouth [place] (two) Medical times Branch daily. cefpodoxime 2021-0 Yes [id number] 100mg Take 1 [facility] 100 mg 3-26 tablet by ity of tablet 00:00: mouth [place] (two) Medical times Branch daily. cefpodoxime 2021-0 Yes [id number] 100mg Take 1 [facility] 100 mg 3-26 tablet by ity of tablet 00:00: mouth [place] ([facility]) Medical times Branch daily. cefpodoxime 2021-0 Yes [id number] 100mg Take 1 Univers 100 mg 3-26 tablet by ity of tablet 00:00: mouth [place] ([facility]) Medical times Branch daily. cefpodoxime 2021-0 Yes [id number] 100mg Take 1 [facility] 100 mg 3-26 tablet by ity of tablet 00:00: mouth [place] (two) Medical times Branch daily. cefpodoxime 2021-0 Yes [id number] 100mg Take 1 [facility] 100 mg 3-26 tablet by ity of tablet 00:00: mouth [place] (two) Medical times Branch daily. cefpodoxime 2021-0 Yes [id number] 100mg Take 1 [facility] 100 mg 3-26 tablet by ity of tablet 00:00: mouth [place] ([facility]) Medical times Branch daily. cefpodoxime 2021-0 Yes [id number] 100mg Take 1 Univers 100 mg 3-26 tablet by ity of tablet 00:00: mouth [place] (two) Medical times Branch daily. cefpodoxime 2021-0 Yes [id number] 100mg Take 1 Univers 100 mg 3-26 tablet by ity of tablet 00:00: mouth [place] ([facility]) Medical times Branch daily. cefpodoxime 2021-0 Yes [id number] 100mg Take 1 [facility] 100 mg 3-26 tablet by ity of tablet 00:00: mouth [place] (two) Medical times Branch daily. cefpodoxime 2021-0 Yes [id number] 100mg Take 1 Univers 100 mg - tablet by ity of tablet 00:00: mouth 2 [place] 00 (two) Medical times Branch daily. cefpodoxime 2022- No [id number] 100mg Take 1 Univers 100 mg 3-14 11- tablet by ity of tablet 00:00: 00:00 mouth 2 [place] 00 :00 (two) Medical times Branch daily. cefpodoxime 0 2020- No [id number] 100mg Take 1 Univers 100 mg 3-12 12- tablet by ity of tablet 00:00: 00:00 mouth 2 [place] 00 :00 (two) Medical times Branch daily [...] Univers mg tablet -28 ity of 00:00: [place] [address] Medical Branch XARELTO 15 2020-0 Yes Univers mg tablet -28 ity of 00:00: [place] Medical Branch XARELTO 15 2020-0 Yes Univers mg tablet 1-28 ity of 00:00: [place] 00 Medical Branch XARELTO 15 2020-0 Yes Univers mg tablet 10-16 ity of 00:00: [place] 00 Medical Branch XARELTO 15 2020-0 Yes Univers mg tablet 10-16 ity of 00:00: [place] 00 Medical Branch XARELTO 15 2020-0 Yes Univers mg tablet 10-16 ity of 00:00: [place] [address] Medical Branch XARELTO 15 2020-0 Yes Univers mg tablet 10-16 ity of 00:00: [place] 00 Medical Branch XARELTO 15 2020-0 Yes Univers mg tablet 10-16 ity of 00:00: [place] [address] Medical Branch XARELTO 15 2020-0 Yes Univers mg tablet 10-16 ity of 00:00: [place] [address] Medical Branch XARELTO 15 2020-0 Yes Univers mg tablet 10-16 ity of 00:00: [place] [address] Medical Branch XARELTO 15 2020-0 Yes Univers mg tablet 10-16 ity of 00:00: [place] [address] Medical Branch XARELTO 15 2020-0 Yes Univers mg tablet 10-16 ity of 00:00: [place] [address] Medical Branch XARELTO 15 2020-0 3- No Univer s mg tablet 10-1612 ity of 00:00: 00:00 [place] 00 :00 [facility] Branch omeprazole 2018- Yes 40mg Take 40 mg U nivers 40 mg 2-10 by mouth ity of capsule 00:11: daily. [address] omeprazole 2018- Yes 40mg Take 40 mg U nivers 40 mg 2-10 by mouth ity of capsule 00:11: daily. [address] varenicline 2018- Yes 1mg Take 1 mg U nivers (CHANTIX) 1 2-10 by mouth 2 it y of mg tablet 00:11: (two) [place] [id number] times Medical daily. Branch predniSONE 2018- Yes 20mg Take 20 mg U nivers 20 mg 2-10 by mouth ity of tablet 00:11: daily. [address] omeprazole 2018- Yes 40mg Take 40 mg U nivers 40 mg 2-10 by mouth ity of capsule 00:11: daily. [address] fluticasone 2018- Yes 1{puff} Inhale 1 Univers -umeclidin- 2-10 Puff ity of vilanter 00:11: daily. [address]) Branch 100-62.5-25 mcg DsDv aspirin 81 2018-09 Yes 81mg Take 81 mg U nivers mg EC 2-10 by mouth ity of tablet 00:11: daily. [address] varenicline 2018-09 Yes 1mg Take 1 mg U nivers (CHANTIX) 1 2-10 by mouth 2 it y of mg tablet 00:11: (two) [address] daily. Branch predniSONE 2018-09 Yes 20mg Take 20 mg U nivers 20 mg 2-10 by mouth ity of tablet 00:11: daily. [address] omeprazole 2018-09 Yes 40mg Take 40 mg U nivers 40 mg 2-10 by mouth ity of capsule 00:11: daily. [address] fluticasone 2018-09 Yes 1{puff} Inhale 1 Univers -umeclidin- 2-10 Puff ity of vilanter 00:11: daily. [address]) Branch 100-62.5-25 mcg DsDv aspirin 81 2018-09 Yes 81mg Take 81 mg U nivers mg EC 2-10 by mouth ity of tablet 00:11: daily. [address] varenicline 2018-09 Yes 1mg Take 1 mg U nivers (CHANTIX) 1 2-10 by mouth 2 it y of mg tablet 00:11: (two) [address] daily. Branch predniSONE 2018-09 Yes 20mg Take 20 mg U nivers 20 mg 2-10 by mouth ity of tablet 00:11: daily. [address] omeprazole 2018-09 Yes 40mg Take 40 mg U nivers 40 mg 2-10 by mouth ity of capsule 00:11: daily. [address] fluticasone 2018-09 Yes 1{puff} Inhale 1 Univers -umeclidin- 2-10 Puff ity of vilanter 00:11: daily. [place] ([address]) Branch 100-62.5-25 mcg DsDv aspirin 81 2018-09 Yes 81mg Take 81 mg U nivers mg EC 2-10 by mouth ity of tablet 00:11: daily. [address] varenicline 2018-09 Yes 1mg Take 1 mg U nivers (CHANTIX) 1 2-10 by mouth 2 it y of mg tablet 00:11: (two) [address] Medical daily. Branch predniSONE 2018-09 Yes 20mg Take 20 mg U nivers 20 mg 2-10 by mouth ity of tablet 00:11: daily. [address] omeprazole 2018-09 Yes 40mg Take 40 mg U nivers 40 mg 2-10 by mouth ity of capsule 00:11: daily. [address] fluticasone 2018-09 Yes 1{puff} Inhale 1 Univers -umeclidin- 2-10 Puff ity of vilanter 00:11: daily. [place] ([address]) Branch 100-62.5-25 mcg DsDv aspirin 81 2018-09 Yes 81mg Take 81 mg U nivers mg EC 2-10 by mouth ity of tablet 00:11: daily. [address] varenicline 2018-09 Yes 1mg Take 1 mg U nivers (CHANTIX) 1 2-10 by mouth 2 it y of mg tablet 00:11: (two) [address] Medical daily. Branch predniSONE 2018-09 Yes 20mg Take 20 mg U nivers 20 mg 2-10 by mouth ity of tablet 00:11: daily. [address] omeprazole 2018-09 Yes 40mg Take 40 mg U nivers 40 mg 2-10 by mouth ity of capsule 00:11: daily. [address] fluticasone 2018-09 Yes 1{puff} Inhale 1 Univers -umeclidin- 2-10 Puff ity of vilanter 00:11: daily. [place] ([address]) Branch 100-62.5-25 mcg DsDv aspirin 81 2018-09 Yes 81mg Take 81 mg U nivers mg EC 2-10 by mouth ity of tablet 00:11: daily. [address] varenicline 2018-09 Yes 1mg Take 1 mg U nivers (CHANTIX) 1 2-10 by mouth 2 it y of mg tablet 00:11: (two) [place] [address] times Medical daily. Branch predniSONE 2018-09 Yes 20mg Take 20 mg U nivers 20 mg 2-10 by mouth ity of tablet 00:11: daily. [address] omeprazole 2018-09 Yes 40mg Take 40 mg U nivers 40 mg 2-10 by mouth ity of capsule 00:11: daily. [address] fluticasone 2019- Yes 1{puff} Inhale 1 Univers -umeclidin- 2-10 Puff ity of vilanter 00:11: daily. [place] ([place] [address] Medical [facility]) Branch 100-62.5-25 mcg DsDv aspirin 81 2018- Yes 81mg Take 81 mg U nivers mg EC 2-10 by mouth ity of tablet 00:11: daily. [address] omeprazole 2018- Yes 40mg Take 40 mg U nivers 40 mg 2-10 by mouth ity of capsule 00:11: daily. [address] omeprazole 2018- Yes 40mg Take 40 mg U nivers 40 mg 2-10 by mouth ity of capsule 00:11: daily. [address] omeprazole 2018- Yes 40mg Take 40 mg U nivers 40 mg 2-10 by mouth ity of capsule 00:11: daily. [address] omeprazole 2018- Yes 40mg Take 40 mg U nivers 40 mg 2-10 by mouth ity of capsule 00:11: daily. [address] omeprazole 2018- Yes 40mg Take 40 mg U nivers 40 mg 2-10 by mouth ity of capsule 00:11: daily. [address] omeprazole 2018- Yes 40mg Take 40 mg U nivers 40 mg 2-10 by mouth ity of capsule 00:11: daily. [address] omeprazole 2018- Yes 40mg Take 40 mg U nivers 40 mg 2-10 by mouth ity of capsule 00:11: daily. [address] omeprazole 2018- Yes 40mg Take 40 mg U nivers 40 mg 2-10 by mouth ity of capsule 00:11: daily. [address] omeprazole 2018- Yes 40mg Take 40 mg U nivers 40 mg 2-10 by mouth ity of capsule 00:11: daily. [address] omeprazole 2018- Yes 40mg Take 40 mg U nivers 40 mg 2-10 by mouth ity of capsule 00:11: daily. [address] omeprazole 2018- Yes 40mg Take 40 mg U nivers 40 mg 2-10 by mouth ity of capsule 00:11: daily. [address] omeprazole 2018-09 Yes 40mg Take 40 mg U nivers 40 mg 2-10 by mouth ity of capsule 00:11: daily. [address] omeprazole 2018-09 Yes 40mg Take 40 mg U nivers 40 mg 2-10 by mouth ity of capsule 00:11: daily. [address] Branch KCL 20 mEq 2018-09 Yes [id number] 40meq Take 2 Univers tablet 2-09 tablets by ity of 00:00: mouth [place] 00 daily. Medical Branch KCL 20 mEq 2018-09 Yes [id number] 40meq Take 2 Univers tablet 2-09 tablets by ity of 00:00: mouth [place] 00 daily. Medical Branch atorvastati 2018-09 Yes [id number] 20mg Take 1 Univers n 20 mg 2-09 tablet by ity of tablet 00:00: mouth at [place] 00 bedtime. Medical Branch metoprolol 2018-09 Yes [id number] 50mg Take 1 [facility] succinate 2-09 tablet by ity o f XL 50 mg 24 00:00: mouth 2 [place] hr tablet 00 (two) Medical times Branch daily. furosemide 2018-09 Yes [id number] 40mg Take 1 Univers 40 mg 2-09 tablet by ity of tablet 00:00: mouth [place] 00 every Medical morning Branch and evening. KCL 20 mEq 2018-09 Yes [id number] 40meq Take 2 Univers tablet 2-09 tablets by ity of 00:00: mouth [place] 00 daily. Medical Branch atorvastati 2018-09 Yes [id number] 20mg Take 1 Univers n 20 mg 2-09 tablet by ity of tablet 00:00: mouth at [place] 00 bedtime. Medical Branch metoprolol 2018-09 Yes [id number] 50mg Take 1 [facility] succinate 2-09 tablet by ity o f XL 50 mg 24 00:00: mouth 2 [place] tablet 00 (two) Medical times Branch daily. furosemide 2018-09 Yes [id number] 40mg Take 1 Univers 40 mg 2-09 tablet by ity of tablet 00:00: mouth [place] 00 every Medical morning Branch and evening. KCL 20 mEq 2018-09 Yes [id number] 40meq Take 2 Univers tablet 2-09 tablets by ity of 00:00: mouth [place] 00 daily. Medical Branch atorvastati 2018-09 Yes [id number] 20mg Take 1 Univers n 20 mg 2-09 tablet by ity of tablet 00:00: mouth at [place] 00 bedtime. Medical Branch metoprolol 2018-09 Yes [id number] 50mg Take 1 [facility] succinate 2-09 tablet by ity o f XL 50 mg 24 00:00: mouth 2 [place] hr tablet 00 (two) Medical times Branch daily. furosemide 2018-09 Yes [id number] 40mg Take 1 Univers 40 mg 2-09 tablet by ity of tablet 00:00: mouth [place] 00 every Medical morning Branch and evening. KCL 20 mEq 2018-09 Yes [id number] 40meq Take 2 Univers tablet 2-09 tablets by ity of 00:00: mouth [place] 00 daily. Medical Branch atorvastati 2018-09 Yes [id number] 20mg Take 1 Univers n 20 mg 2-09 tablet by ity of tablet 00:00: mouth at [place] 00 bedtime. Medical Branch metoprolol 2018-09 Yes [id number] 50mg Take 1 [facility] succinate 2-09 tablet by ity o f XL 50 mg 24 00:00: mouth 2 [place] hr tablet 00 (two) Medical times Branch daily. furosemide 2018-09 Yes [id number] 40mg Take 1 [facility] 40 mg 2-09 tablet by ity of tablet 00:00: mouth [place] 00 every Medical morning Branch and evening. KCL 20 mEq 2018-09 Yes [id number] 40meq Take 2 Univers tablet 2-09 tablets by ity of 00:00: mouth [place] 00 daily. Medical Branch atorvastati 2018-09 Yes [id number] 20mg Take 1 Univers n 20 mg 2-09 tablet by ity of tablet 00:00: mouth at [place] 00 bedtime. Medical Branch metoprolol 2018-09 Yes [id number] 50mg Take 1 [facility] succinate 2-09 tablet by ity o f XL 50 mg 24 00:00: mouth 2 [place] tablet 00 (two) Medical times Branch daily. furosemide 2018-09 Yes [id number] 40mg Take 1 Univers 40 mg 2-09 tablet by ity of tablet 00:00: mouth [place] 00 every Medical morning Branch and evening. KCL 20 mEq 2018-09 Yes [id number] 40meq Take 2 Univers tablet 2-09 tablets by ity of 00:00: mouth [place] 00 daily. Medical Branch atorvastati 2018-09 Yes [id number] 20mg Take 1 Univers n 20 mg 2-09 tablet by ity of tablet 00:00: mouth at [place] 00 bedtime. Medical Branch metoprolol 2018-09 Yes [id number] 50mg Take 1 [facility] succinate 2-09 tablet by ity o f XL 50 mg 24 00:00: mouth 2 [place] tablet 00 (two) Medical times Branch daily. furosemide 2018-09 Yes [id number] 40mg Take 1 Univers 40 mg 2-09 tablet by ity of tablet 00:00: mouth [place] 00 every Medical morning Branch and evening. KCL 20 mEq 2018-09 Yes [id number] 40meq Take 2 Univers tablet 2-09 tablets by ity of 00:00: mouth [place] 00 daily. Medical Branch KCL 20 mEq 2018-09 Yes [id number] 40meq Take 2 Univers tablet 2-09 tablets by ity of 00:00: mouth [place] 00 daily. Medical Branch KCL 20 mEq 2018-09 Yes [id number] 40meq Take 2 Univers tablet 2-09 tablets by ity of 00:00: mouth [place] 00 daily. Medical Branch KCL 20 mEq 2018-09 Yes [id number] 40meq Take 2 Univers tablet 2-09 tablets by ity of 00:00: mouth [place] 00 daily. Medical Branch KCL 20 mEq 2018-09 Yes [id number] 40meq Take 2 Univers tablet 2-09 tablets by ity of 00:00: mouth [place] 00 daily. Medical Branch KCL 20 mEq 2018-09 Yes [id number] 40meq Take 2 Univers tablet 2-09 tablets by ity of 00:00: mouth [place] 00 daily. Medical Branch KCL 20 mEq 2018-09 Yes [id number] 40meq Take 2 Univers tablet 2-09 tablets by ity of 00:00: mouth [place] 00 daily. Medical Branch KCL 20 mEq 2018-09 Yes [id number] 40meq Take 2 Univers tablet 2-09 tablets by ity of 00:00: mouth [place] 00 daily. Medical Branch KCL 20 mEq 2018-09 Yes [id number] 40meq Take 2 Univers tablet 2-09 tablets by ity of 00:00: mouth [place] 00 daily. Medical Branch KCL 20 mEq 2018-09 Yes [id number] 40meq Take 2 Univers tablet 2-09 tablets by ity of 00:00: mouth [place] 00 daily. Medical Branch KCL 20 mEq 2018-09 Yes [id number] 40meq Take 2 [facility] tablet 2-09 tablets by ity of 00:00: mouth [place] 00 daily. Medical Branch KCL 20 mEq 2018-09 Yes [id number] 40meq Take 2 Univers tablet 2-09 tablets by ity of 00:00: mouth [place] 00 daily. Medical Branch KCL 20 mEq 2018-09 Yes [id number] 40meq Take 2 [facility] tablet 2-09 tablets by ity of 00:00: mouth [place] 00 daily. Medical Branch KCL 20 mEq 2018-09 Yes [id number] 40meq Take 2 Univers tablet 2-09 tablets by ity of 00:00: mouth [place] 00 daily. Medical Branch KCL 20 mEq 2018-09 Yes [id number] 40meq Take 2 Univers tablet 2-09 tablets by ity of 00:00: mouth [place] 00 daily. Medical Branch KCL 20 mEq 2018-09 Yes [id number] 40meq Take 2 Univers tablet 2-09 tablets by ity of 00:00: mouth [place] 00 daily. Medical Branch KCL 20 mEq 2018-09 Yes [id number] 40meq Take 2 Univers tablet 2-09 tablets by ity of 00:00: mouth [place] 00 daily. Medical Branch KCL 20 mEq 2018-09 Yes [id number] 40meq Take 2 Univers tablet 2-09 tablets by ity of 00:00: mouth [place] 00 daily. Medical Branch KCL 20 mEq 2018-09 Yes [id number] 40meq Take 2 Univers tablet 2-09 tablets by ity of 00:00: mouth [place] 00 daily. Medical Branch KCL 20 mEq 2018-09- No [id number] 40meq Take 2 Univers tablet 2-05 22-12 tablets by ity of 00:00: 00:00 mouth [place] 00 :00 daily. Medical Branch atorvastati 2018-09- No [id number] 20mg Take 1 Univers n 20 mg 10-28 tablet by ity of tablet 00:00: 00:00 mouth at [place] 00 :00 bedtime. Medical Branch metoprolol 2018-09- No [id number] 50mg Take 1 [facility] succinate 10-28- tablet by ity of XL 50 mg 24 00:00: 00:00 mouth 2 [place] hr tablet 00 :00 (two) Medical times Branch daily. furosemide 2018-09- No [id number] 40mg Take 1 Univers 40 mg 2-09 [...] Until mL Discontinu ed, Routine ibuprofen Yes [id number] 600mg Take 1 U nivers 600 mg 5-31 tablet by ity of tablet 00:00: mouth [place] 00 every 8 Medical (eight) Branch hours as needed (PAIN). ibuprofen Yes [id number] 600mg Take 1 U nivers 600 mg 5-31 tablet by ity of tablet 00:00: mouth [place] 00 every 8 Medical (eight) Branch hours as needed (pain). ibuprofen 2019- No [id number] 600mg Take 1 Univers 600 mg 5-31 08-15 tablet by ity of tablet 00:00: 00:00 mouth [place] 00 :00 every 8 Medical (eight) Branch hours as needed (PAIN). ibuprofen 2019- No [id number] 600mg Take 1 [facility] 600 mg 5-31 08-15 tablet by ity of tablet 00:00: 00:00 mouth [place] 00 :00 every 8 Medical (eight) Branch hours as needed (pain). magnesium Yes 400mg Take 1 Tab U nivers oxide 2-23 by mouth 3 ity of (MAG-OX 00:00: (three) [place] 400) 400 mg 00 times Medical tablet daily. Branch enalapril Yes [id number] 2.5mg Take 1 Tab Univers (VASOTEC) 2-23 [...] s tablet 00 Medical Branch furosemide Yes [id number] 40mg Take 1 Tab Univers (LASIX) 40 [...] Medical tablet daily. Branch enalapril 2018- No [id number] 2.5mg Take 1 Tab Univers (VASOTEC) 2- [...] 00 :00 Medical Branch furosemide 2019- No [id number] 40mg Take 1 Tab [facility] (LASIX) 40 [...] 4 ity of 0.02 % 00:00: (four) [place] nebulizer 00 times Medical solution daily. Branch [...] Immunizations Ordered Filled Immunization Date Status Comments [facility] e Immunization Name Name Pneumococcal 20 [...] Universit y of Conjugate, PCV20 00:00:00 [place] [facility] (Prevnar 20) Branch Pneumococcal 20 2022-12-12 [...] Universit y of Conjugate, PCV20 00:00:00 [place] [facility] (Prevnar 20) Branch Pneumococcal 20 2022-12-12 Completed Universit y of Conjugate, PCV20 00:00:00 [place] [facility] (Prevnar 20) Branch Pneumococcal 20 2022-12-12 Completed Universit y of Conjugate, PCV20 00:00:00 [place] [facility] (Prevnar 20) Branch Pneumococcal 20 2022-12-12 [...] Universit y of Conjugate, PCV20 00:00:00 [place] [facility] (Prevnar 20) Branch Pneumococcal 20 2022-12-12 Completed Universit y of Conjugate, PCV20 00:00:00 [place] [facility] (Prevnar 20) Branch Pneumococcal 20 2022-12-12 Completed Universit y of Conjugate, PCV20 00:00:00 [place] [facility] (Prevnar 20) Branch Pneumococcal 20 2022-12-12 Completed Universit y of Conjugate, PCV20 00:00:00 [place] [facility] (Prevnar 20) Branch Pneumococcal 20 2022-12-12 Completed Universit y of Conjugate, PCV20 00:00:00 [place] [facility] (Prevnar 20) Branch Pneumococcal 20 2022-12-12 Completed Universit y of Conjugate, PCV20 00:00:00 [place] [facility] (Prevnar 20) Branch Pneumococcal 20 2022-12-12 Completed Universit y of Conjugate, PCV20 00:00:00 [place] [facility] (Prevnar 20) Branch Pneumococcal 20 2022-12-12 Completed [facility]it y of Conjugate, PCV20 00:00:00 [place] [facility] (Prevnar 20) Branch Pneumococcal 20 2022-12-12 Completed [facility]it y of Conjugate, PCV20 00:00:00 [place] [facility] (Prevnar 20) Branch Pneumococcal 20 2022-12-12 Completed [facility]it y of Conjugate, PCV20 00:00:00 [place] [facility] (Prevnar 20) Branch Pneumococcal 20 2022-12-12 Completed [facility]it y of Conjugate, PCV20 00:00:00 [place] [facility] (Prevnar 20) Branch Pneumococcal 20 2022-12-12 Completed Universit y of Conjugate, PCV20 00:00:[address] [facility] dical (Prevnar 20) Branch Pneumococcal 20 2022-12-12 Completed Universit y of Conjugate, PCV20 00:00:[address] [facility] dical (Prevnar 20) Branch Pneumococcal 20 2022-12-12 Completed Universit y of Conjugate, PCV20 00:00:[address] [facility] dical (Prevnar 20) Branch Pneumococcal 20 2022-12-12 Completed Universit y of Conjugate, PCV20 00:00:[address] [facility] dical (Prevnar 20) Branch Pneumococcal 20 2022-12-12 Completed Universit y of Conjugate, PCV20 00:00:[address] [facility] dical (Prevnar 20) Branch SARS-COV-2 COVID-19 [...] rsity of MODERNA 12+ YRS 00:00:00 [facility] ical VACCINE Branch SARS-COV-2 COVID-19 2020-10-26 Completed Unive rsity of MODERNA VACCINE 00:00:00 [facility] ical Branch SARS-COV-2 COVID-19 2020-10-26 Completed Unive rsity of MODERNA 12+ YRS 00:00:00 [facility] ical VACCINE Branch SARS-COV-2 COVID-19 2020-10-26 Completed Unive rsity of MODERNA 12+ YRS 00:00:00 [facility] ical VACCINE Branch SARS-COV-2 COVID-19 2020-10-26 Completed Unive rsity of MODERNA 12+ YRS 00:00:00 [facility] ical VACCINE Branch Td 2019-02-16 Completed University of 00:00:00 [facility] TD, NOS 2019-02-16 Completed University of 00:00:00 [facility] TD, NOS 2019-02-16 Completed University of 00:00:00 [facility] TD, NOS 2019-02-16 Completed University of 00:00:00 [facility] TD, NOS 2019-02-16 Completed University of 00:00:00 [facility] TD, NOS 2019-02-16 Completed University of 00:00:00 [facility] Td 2019-02-16 Completed University of 00:00:00 [facility] TD, NOS 2019-02-16 Completed University of [...] Completed University of 00:00:00 [facility] TD, NOS 2019-02-16 Completed University of 00:00:00 [facility] Td 2019-02-16 Completed University of 00:00:00 [facility] TD, NOS 2019-02-16 Completed University of 00:00:00 [facility] TD, NOS 2019-02-16 Completed University of 00:00:00 [facility] TD, NOS 2019-02-16 Completed University of 00:00:00 [facility] Pneumococcal 2014-09-05 Completed University o f Polysaccharide, 00:00:00 [place] [facility] PPSV23 (PNEUMOVAX) Branch Influenza Virus 2014-09-05 Completed Universit y of Vaccine Quad IM 3+ 00:00:00 [facility] Pneumococcal 2014-09-05 Completed University o f Polysaccharide, 00:00:00 [place] [facility] PPSV23 (PNEUMOVAX) Branch Influenza Virus 2014-09-05 Completed Universit y of Vaccine Quad IM 3+ 00:00:00 [facility] Pneumococcal 2014-09-05 Completed University o f Polysaccharide, 00:00:00 [place] [facility] PPSV23 (PNEUMOVAX) Branch Influenza Virus 2014-09-05 Completed Universit y of Vaccine Quad IM 3+ 00:00:00 [facility] Pneumococcal 2014-09-05 Completed University o f Polysaccharide, 00:00:00 [place] [facility] PPSV23 (PNEUMOVAX) Branch Influenza Virus 2014-09-05 Completed Universit y of Vaccine Quad IM 3+ 00:00:00 [facility] Pneumococcal 2014-09-05 Completed University o f Polysaccharide, 00:00:00 [place] [facility] PPSV23 (PNEUMOVAX) Branch Influenza Virus 2014-09-05 Completed Universit y of Vaccine Quad IM 3+ 00:00:00 [facility] Pneumococcal 2014-09-05 Completed University o f Polysaccharide, 00:00:00 [place] [facility] PPSV23 (PNEUMOVAX) Branch Influenza Virus 2014-09-05 Completed Universit y of Vaccine Quad IM 3+ 00:00:00 [facility] Pneumococcal 2014-09-05 Completed University o f Polysaccharide, 00:00:00 [place] [facility] PPSV23 (PNEUMOVAX) Branch Influenza Virus 2014-09-05 Completed Universit y of Vaccine Quad IM 3+ 00:00:00 [facility] Pneumococcal 2014-09-05 Completed University o f Polysaccharide, 00:00:00 [place] [facility] PPSV23 (PNEUMOVAX) Branch Influenza Virus 2014-09-05 Completed Universit y of Vaccine Quad IM 3+ 00:00:00 [facility] Pneumococcal 2014-09-05 Completed University o f Polysaccharide, 00:00:00 [place] [facility] PPSV23 (PNEUMOVAX) Branch Influenza Virus 2014-09-05 Completed Universit y of Vaccine Quad IM 3+ 00:00:00 [facility] Pneumococcal 2014-09-05 Completed University o f Polysaccharide, 00:00:00 [place] [facility] PPSV23 (PNEUMOVAX) Branch Influenza Virus 2014-09-05 Completed Universit y of Vaccine Quad IM 3+ 00:00:00 [facility] Pneumococcal 2014-09-05 Completed University o f Polysaccharide, 00:00:00 [place] [facility] PPSV23 (PNEUMOVAX) Branch Influenza Virus 2014-09-05 Completed Universit y of Vaccine Quad IM 3+ 00:00:00 [facility] Pneumococcal 2014-09-05 Completed University o f Polysaccharide, 00:00:00 [place] [facility] PPSV23 (PNEUMOVAX) Branch Influenza Virus 2014-09-05 Completed Universit y of Vaccine Quad IM 3+ 00:00:00 [facility] Pneumococcal 2014-09-05 Completed University o f Polysaccharide, 00:00:00 [place] [facility] PPSV23 (PNEUMOVAX) Branch Influenza Virus 2014-09-05 Completed Universit y of Vaccine Quad IM 3+ 00:00:00 [facility] Influenza Virus 2014-09-05 Completed Universit y of Vaccine Quad IM 3+ 00:00:00 [facility] Pneumococcal 2014-09-05 Completed University o f Polysaccharide, 00:00:00 [place] [facility] PPSV23 (PNEUMOVAX) Branch Pneumococcal 2014-09-05 Completed University o f Polysaccharide, 00:00:00 [place] [facility] PPSV23 (PNEUMOVAX) Branch Influenza Virus 2014-09-05 Completed Universit y of Vaccine Quad IM 3+ 00:00:00 [facility] Pneumococcal 2014-09-05 Completed University o f Polysaccharide, 00:00:00 [place] [facility] PPSV23 (PNEUMOVAX) Branch Influenza Virus 2014-09-05 Completed Universit y of Vaccine Quad IM 3+ 00:00:00 [facility] Pneumococcal 2014-09-05 Completed University o f Polysaccharide, 00:00:00 [place] [facility] PPSV23 (PNEUMOVAX) Branch Influenza Virus 2014-09-05 Completed Universit y of Vaccine Quad IM 3+ 00:00:00 [facility] Pneumococcal 2014-09-05 Completed University o f Polysaccharide, 00:00:00 [place] [facility] PPSV23 (PNEUMOVAX) Branch Influenza Virus 2014-09-05 Completed Universit y of Vaccine Quad IM 3+ 00:00:00 [facility] Pneumococcal 2014-09-05 Completed University o f Polysaccharide, 00:00:00 [place] [facility] PPSV23 (PNEUMOVAX) Branch Influenza Virus 2014-09-05 Completed Universit y of Vaccine Quad IM 3+ 00:00:00 [facility] Pneumococcal 2014-09-05 Completed University o f Polysaccharide, 00:00:00 [place] [facility] PPSV23 (PNEUMOVAX) Branch Influenza Virus 2014-09-05 Completed Universit y of Vaccine Quad IM 3+ 00:00:00 [facility] Pneumococcal 2014-09-05 Completed University o f Polysaccharide, 00:00:00 [place] [facility] PPSV23 (PNEUMOVAX) Branch Influenza Virus 2014-09-05 Completed Universit y of Vaccine Quad IM 3+ 00:00:00 [facility] Pneumococcal 2014-09-05 Completed University o f Polysaccharide, 00:00:00 [place] [facility] PPSV23 (PNEUMOVAX) Branch Influenza Virus 2014-09-05 Completed Universit y of Vaccine Quad IM 3+ 00:00:00 [facility] Pneumococcal 2014-09-05 Completed University o f Polysaccharide, 00:00:00 [place] [facility] PPSV23 (PNEUMOVAX) Branch Influenza Virus 2014-09-05 Completed Universit y of Vaccine Quad IM 3+ 00:00:00 [facility] Pneumococcal 2014-09-05 Completed University o f Polysaccharide, 00:00:00 [place] [facility] PPSV23 (PNEUMOVAX) Branch Influenza Virus 2014-09-05 Completed Universit y of Vaccine Quad IM 3+ 00:00:00 [facility] Pneumococcal 2014-09-05 Completed University o f Polysaccharide, 00:00:00 [place] [facility] PPSV23 (PNEUMOVAX) Branch Influenza Virus 2014-09-05 Completed Universit y of Vaccine Quad IM 3+ 00:00:00 [facility] Pneumococcal 2014-09-05 Completed University o f Polysaccharide, 00:00:00 [place] [facility] PPSV23 (PNEUMOVAX) Branch Influenza Virus 2014-09-05 Completed Universit y of Vaccine Quad IM 3+ 00:00:00 [facility] Pneumococcal 2014-09-05 Completed University o f Polysaccharide, 00:00:00 [place] [facility] PPSV23 (PNEUMOVAX) Branch Influenza Virus 2014-09-05 Completed Universit y of Vaccine Quad IM 3+ 00:00:00 [facility] Pneumococcal 2014-09-05 Completed University o f Polysaccharide, 00:00:00 [place] [facility] PPSV23 (PNEUMOVAX) Branch Influenza Virus 2014-09-05 Completed Universit y of Vaccine Quad IM 3+ 00:00:00 [facility] Pneumococcal 2014-09-05 Completed University o f Polysaccharide, 00:00:00 [place] [facility] PPSV23 (PNEUMOVAX) Branch Influenza Virus 2014-09-05 Completed Universit y of Vaccine Quad IM 3+ 00:00:00 [facility] Pneumococcal 2014-09-05 Completed University o f Polysaccharide, 00:00:00 [place] [facility] PPSV23 (PNEUMOVAX) Branch Influenza Virus 2014-09-05 Completed Universit y of Vaccine Quad IM 3+ 00:00:00 [facility] Pneumococcal 2014-09-05 Completed University o f Polysaccharide, 00:00:00 [place] [facility] PPSV23 (PNEUMOVAX) Branch Influenza Virus 2014-09-05 Completed Universit y of Vaccine Quad IM 3+ 00:00:00 [facility] Influenza Virus 2014-09-05 Completed Universit y of Vaccine Quad IM 3+ 00:00:00 [facility] Pneumococcal 2014-09-05 Completed University o f Polysaccharide, 00:00:00 [place] [facility] PPSV23 (PNEUMOVAX) Branch Pneumococcal 2014-09-05 Completed University o f Polysaccharide, 00:00:00 [place] [facility] PPSV23 (PNEUMOVAX) Branch Influenza Virus 2014-09-05 Completed Universit y of Vaccine Quad IM 3+ 00:00:00 [facility] Pneumococcal 2014-09-05 Completed University o f Polysaccharide, 00:00:00 [place] [facility] PPSV23 (PNEUMOVAX) Branch Influenza Virus 2014-09-05 Completed Universit y of Vaccine Quad IM 3+ 00:00:00 [facility] Pneumococcal 2014-09-05 Completed University o f Polysaccharide, 00:00:00 [place] [facility] PPSV23 (PNEUMOVAX) Branch Influenza Virus 2014-09-05 Completed Universit y of Vaccine Quad IM 3+ 00:00:00 [facility] Pneumococcal 2014-09-05 Completed University o f Polysaccharide, 00:00:00 [place] [facility] PPSV23 (PNEUMOVAX) Branch Influenza Virus 2014-09-05 Completed Universit y of Vaccine Quad IM 3+ 00:00:00 [facility] Pneumococcal 2014-09-05 Completed University o f Polysaccharide, 00:00:00 [place] [facility] PPSV23 (PNEUMOVAX) Branch Influenza Virus 2014-09-05 Completed Universit y of Vaccine Quad IM 3+ 00:00:00 [facility] Pneumococcal 2014-09-05 Completed University o f Polysaccharide, 00:00:00 [place] [facility] PPSV23 (PNEUMOVAX) Branch Influenza Virus 2014-09-05 Completed Universit y of Vaccine Quad IM 3+ 00:00:00 [facility] Pneumococcal 2014-09-05 Completed University o f Polysaccharide, 00:00:00 [place] [facility] PPSV23 (PNEUMOVAX) Branch Influenza Virus 2014-09-05 Completed Universit y of Vaccine Quad IM 3+ 00:00:00 [facility] Pneumococcal 2014-09-05 Completed University o f Polysaccharide, 00:00:00 [place] [facility] PPSV23 (PNEUMOVAX) Branch Influenza Virus 2014-09-05 Completed Universit y of Vaccine Quad IM 3+ 00:00:00 [facility] Pneumococcal 2014-09-05 Completed University o f Polysaccharide, 00:00:00 [place] [facility] PPSV23 (PNEUMOVAX) Branch Influenza Virus 2014-09-05 Completed Universit y of Vaccine Quad IM 3+ 00:00:00 [facility] Pneumococcal 2014-09-05 Completed University o f Polysaccharide, 00:00:00 [place] [facility] PPSV23 (PNEUMOVAX) Branch Influenza Virus 2014-09-05 Completed Universit y of Vaccine Quad IM 3+ 00:00:00 [facility] Pneumococcal 2014-09-05 Completed University o f Polysaccharide, 00:00:00 [place] [facility] PPSV23 (PNEUMOVAX) Branch Influenza Virus 2014-09-05 Completed Universit y of Vaccine Quad IM 3+ 00:00:00 [facility] Pneumococcal 2014-09-05 Completed University o f Polysaccharide, 00:00:00 [place] [facility] PPSV23 (PNEUMOVAX) Branch Influenza Virus 2014-09-05 Completed Universit y of Vaccine Quad IM 3+ 00:00:00 [facility] Pneumococcal 2014-09-05 Completed University o f Polysaccharide, 00:00:00 [place] [facility] PPSV23 (PNEUMOVAX) Branch Influenza Virus 2014-09-05 Completed Universit y of Vaccine Quad IM 3+ 00:00:00 [facility] Pneumococcal 2014-09-05 Completed University o f Polysaccharide, 00:00:00 [place] [facility] PPSV23 (PNEUMOVAX) Branch Influenza Virus 2014-09-05 Completed Universit y of Vaccine Quad IM 3+ 00:00:00 [facility] Pneumococcal 2014-09-05 Completed University o f Polysaccharide, 00:00:00 [place] [facility] PPSV23 (PNEUMOVAX) Branch Influenza Virus 2014-09-05 Completed Universit y of Vaccine Quad IM 3+ 00:00:00 [facility] Pneumococcal 2014-09-05 Completed University o f Polysaccharide, 00:00:00 [place] [facility] PPSV23 (PNEUMOVAX) Branch Influenza Virus 2014-09-05 Completed Universit y of Vaccine Quad IM 3+ 00:00:00 [facility] Pneumococcal 2014-09-05 Completed University o f Polysaccharide, 00:00:00 [place] [facility] PPSV23 (PNEUMOVAX) Branch Influenza Virus 2014-09-05 Completed Universit y of Vaccine Quad IM 3+ 00:00:00 [facility] Pneumococcal 2014-09-05 Completed University o f Polysaccharide, 00:00:00 [place] [facility] PPSV23 (PNEUMOVAX) Branch Influenza Virus 2014-09-05 Completed Universit y of Vaccine Quad IM 3+ 00:00:00 [facility] Pneumococcal 2014-09-05 Completed University o f Polysaccharide, 00:00:00 [place] [facility] PPSV23 (PNEUMOVAX) Branch Influenza Virus 2014-09-05 Completed Universit y of Vaccine Quad IM 3+ 00:00:00 [facility] Pneumococcal 2014-09-05 Completed University o f Polysaccharide, 00:00:00 [place] [facility] PPSV23 (PNEUMOVAX) Branch Influenza Virus 2014-09-05 Completed Universit y of Vaccine Quad IM 3+ 00:00:00 [facility] Pneumococcal 2014-09-05 Completed University o f Polysaccharide, 00:00:00 [place] [facility] PPSV23 (PNEUMOVAX) Branch Influenza Virus 2014-09-05 Completed Universit y of Vaccine Quad IM 3+ 00:00:00 [facility] Pneumococcal 2014-09-05 Completed University o f Polysaccharide, 00:00:00 [place] [facility] PPSV23 (PNEUMOVAX) Branch Influenza Virus 2014-09-05 Completed Universit y of Vaccine Quad IM 3+ 00:00:00 [facility] Pneumococcal 2014-09-05 Completed University o f Polysaccharide, 00:00:00 [place] [facility] PPSV23 (PNEUMOVAX) Branch Influenza Virus 2014-09-05 Completed Universit y of Vaccine Quad IM 3+ 00:00:00 [facility] Pneumococcal 2014-09-05 Completed University o f Polysaccharide, 00:00:00 [place] [facility] PPSV23 (PNEUMOVAX) Branch Influenza Virus 2014-09-05 Completed Universit y of Vaccine Quad IM 3+ 00:00:00 [facility] Pneumococcal 2014-09-05 Completed University o f Polysaccharide, 00:00:00 [place] [facility] PPSV23 (PNEUMOVAX) Branch Influenza Virus 2014-09-05 Completed Universit y of Vaccine Quad IM 3+ 00:00:00 [facility] Pneumococcal 2014-09-05 Completed University o f Polysaccharide, 00:00:00 [place] [facility] PPSV23 (PNEUMOVAX) Branch Influenza Virus 2014-09-05 Completed Universit y of Vaccine Quad IM 3+ 00:00:00 [facility] Pneumococcal 2014-09-05 Completed University o f Polysaccharide, 00:00:00 [place] [facility] PPSV23 (PNEUMOVAX) Branch Influenza Virus 2014-09-05 Completed Universit y of Vaccine Quad IM 3+ 00:00:00 [facility] Pneumococcal 2014-09-05 Completed University o f Polysaccharide, 00:00:00 [place] [facility] PPSV23 (PNEUMOVAX) Branch Influenza Virus 2014-09-05 Completed Universit y of Vaccine Quad IM 3+ 00:00:00 [facility] Pneumococcal 2014-09-05 Completed University o f Polysaccharide, 00:00:00 [place] [facility] PPSV23 (PNEUMOVAX) Branch Influenza Virus 2014-09-05 Completed Universit y of Vaccine Quad IM 3+ 00:00:00 [facility] Pneumococcal 2014-09-05 Completed University o f Polysaccharide, 00:00:00 [place] [facility] PPSV23 (PNEUMOVAX) Branch Influenza Virus 2014-09-05 Completed Universit y of Vaccine Quad IM 3+ 00:00:00 [facility] Pneumococcal 2014-09-05 Completed University o f Polysaccharide, 00:00:00 [place] [facility] PPSV23 (PNEUMOVAX) Branch Influenza Virus 2014-09-05 Completed Universit y of Vaccine Quad IM 3+ 00:00:00 [facility] Influenza Virus 2014-09-05 Completed Universit y of Vaccine Quad IM 3+ 00:00:00 [facility] Pneumococcal 2014-09-05 Completed University o f Polysaccharide, 00:00:00 [place] [facility] PPSV23 (PNEUMOVAX) Branch Pneumococcal 2014-09-05 Completed University o f Polysaccharide, 00:00:00 [place] [facility] PPSV23 (PNEUMOVAX) Branch Influenza Virus 2014-09-05 Completed Universit y of Vaccine Quad IM 3+ 00:00:00 [facility] Pneumococcal 2014-09-05 Completed University o f Polysaccharide, 00:00:00 [place] [facility] PPSV23 (PNEUMOVAX) Branch Influenza Virus 2014-09-05 Completed Universit y of Vaccine Quad IM 3+ 00:00:00 [facility] Pneumococcal 2014-09-05 Completed University o f Polysaccharide, 00:00:00 [place] [facility] PPSV23 (PNEUMOVAX) Branch Influenza Virus 2014-09-05 Completed Universit y of Vaccine Quad IM 3+ 00:00:00 [facility] Pneumococcal 2014-09-05 Completed University o f Polysaccharide, 00:00:00 [place] [facility] PPSV23 (PNEUMOVAX) Branch Influenza Virus 2014-09-05 Completed Universit y of Vaccine Quad IM 3+ 00:00:00 [facility] Vital Signs Vital Name Observation Time Observation Value Comments Source Systolic blood 2023-03-01 143 mm[Hg] University of pressure 20:27:00 [facility] Diastolic blood 2023-03-01 87 mm[Hg] University o f pressure 20:27:00 [facility] Heart rate 2023-03-01 99 /min University 20:27:00 [facility] Body height 2023-03-01 177.8 cm University of 20:27:00 [facility] Body weight 2023-03-01 57.153 kg University of 20:27:00 [facility] BMI 2023-03-01 18.08 kg/m2 University of 20:27:00 [facility] Oxygen saturation 2023-03-01 99 /min University of in Arterial blood 20:27:00 [facility] by Pulse oximetry Branch Systolic blood 2023-02-18 144 mm[Hg] University of pressure 16:17:00 [facility] Diastolic blood 2023-02-18 68 mm[Hg] University o f pressure 16:17:00 [facility] Heart rate 2023-02-18 55 /min University of 16:17:00 [facility] Body temperature 2023-02-18 36.06 Tia University of 16:17:00 [facility] Respiratory rate 2023-02-18 18 /min University of 16:17:00 [facility] Oxygen saturation 2023-02-18 100 /min University in Arterial blood 16:17:00 [facility] by Pulse oximetry Branch Body weight 2023-02-18 58.968 kg University of 07:50:00 [facility] BMI 2023-02-18 18.65 kg/m2 University of 07:50:00 [facility] Body height 2023-02-16 177.8 cm University of 00:31:00 [facility] Oxygen saturation 2023-02-07 99 /min University of in Arterial blood 19:29:00 [facility] by Pulse oximetry Branch Systolic blood 2023-02-07 103 mm[Hg] University of pressure 19:27:00 [facility] Diastolic blood 2023-02-07 75 mm[Hg] University o f pressure 19:27:00 [facility] Heart rate 2023-02-07 104 /min University of 19:27:00 [facility] Body temperature 2023-02-07 36.39 Tia University of 19:27:00 [facility] Branch Respiratory rate 2023-02-07 22 /min University of 19:27:00 [facility] Body weight 2023-02-07 72.576 kg University of 19:27:00 [facility] BMI 2023-02-07 22.96 kg/m2 University of 19:27:00 [facility] Heart rate 2023-02-05 85 /min University of 20:17:00 [facility] Respiratory rate 2023-02-05 18 /min University of 20:17:00 [facility] Oxygen saturation 2023-02-05 100 /min University of in Arterial blood 20:17:00 [facility] by Pulse oximetry Branch Systolic blood 2023-02-05 98 mm[Hg] University of pressure 19:53:35 [facility] Diastolic blood 2023-02-05 71 mm[Hg] University o f pressure 19:53:35 [facility] Body temperature 2023-02-05 36.5 Tia University of 19:51:00 [facility] Body height 2023-02-05 177.8 cm University of 19:51:00 [facility] Body weight 2023-02-05 72.576 kg University of 19:51:00 [facility] BMI 2023-02-05 22.96 kg/m2 University of 19:51:00 [facility] Heart rate 2023-02-04 76 /min University of 20:31:00 [facility] Respiratory rate 2023-02-04 18 /min University of 20:31:00 [facility] Oxygen saturation 2023-02-04 97 /min University of in Arterial blood 20:31:00 [facility] by Pulse oximetry Branch Systolic blood 2023-02-04 126 mm[Hg] University of pressure 20:15:00 [facility] Branch Diastolic blood 2023-02-04 98 mm[Hg] University o f pressure 20:15:00 [facility] Body temperature 2023-02-04 36.83 Tia University of 20:15:00 [facility] Body weight 2023-02-04 72.576 kg University of 20:15:00 [facility] BMI 2023-02-04 22.96 kg/m2 University of 20:15:00 [facility] [facility] Systolic blood 2023-02-03 100 mm[Hg] University [...] /min University of in Arterial blood 23:00:00 [facility] Body temperature 2023-02-03 36.72 Tia University of 22:44:00 [facility] Body weight 2023-02-03 72.576 kg University of 22:44:00 [facility] BMI 2023-02-03 22.96 kg/m2 University of 22:44:00 [facility] Systolic blood 2023-02-03 128 mm[Hg] University of pressure 20:02:00 [facility] Diastolic blood 2023-02-03 81 mm[Hg] University o f pressure 20:02:00 [facility] Heart rate 2023-02-03 88 /min University of 20:02:00 [facility] Respiratory rate 2023-02-03 25 /min University of 20:02:00 [facility] Oxygen saturation 2023-02-03 94 /min University of in Arterial blood 20:02:00 [facility] Body temperature 2023-02-03 36.61 Tia University of 18:18:00 [facility] Body weight 2023-02-03 72.576 kg University of 17:41:00 [facility] BMI 2023-02-03 22.96 kg/m2 University of 17:41:00 [facility] Heart rate 2023-02-02 107 /min University of 22:49:00 [facility] Respiratory rate 2023-02-02 20 /min University of 22:49:00 [facility] Oxygen saturation 2023-02-02 94 /min University of in Arterial blood 22:49:00 [facility] Systolic blood 2023-02-02 102 mm[Hg] University of pressure 22:32:00 [facility] Diastolic blood 2023-02-02 74 mm[Hg] University o f pressure 22:32:00 [facility] Body temperature 2023-02-02 35.83 Tia University of 21:58:32 [facility] Body height 2023-02-02 177.8 cm University of 21:54:00 [facility] Body weight 2023-02-02 72.576 kg University of 21:54:00 [facility] BMI 2023-02-02 22.96 kg/m2 University of 21:54:00 [facility] Systolic blood 2023-01-31 140 mm[Hg] University of pressure 21:00:00 [facility] Diastolic blood 2023-01-31 72 mm[Hg] University o f pressure 21:00:00 [facility] Heart rate 2023-01-31 89 /min University of 21:00:00 [facility] Respiratory rate 2023-01-31 20 /min University of 21:00:00 [facility] Oxygen saturation 2023-01-31 97 /min [facility] of in Arterial blood 21:00:00 [facility] Body temperature 2023-01-31 36.72 Tia University of 18:50:00 [facility] Body weight 2023-01-31 72.576 kg University of 18:50:00 [facility] BMI 2023-01-31 22.96 kg/m2 University of 18:50:00 [facility] Systolic blood 2023-01-31 130 mm[Hg] University of pressure 16:09:00 [facility] Diastolic blood 2023-01-31 72 mm[Hg] University o f pressure 16:09:00 [facility] Heart rate 2023-01-31 99 /min University of 16:09:00 [facility] Body temperature 2023-01-31 36.39 Tia University of 16:09:00 [facility] Respiratory rate 2023-01-31 18 /min University of 16:09:00 [facility] Body height 2023-01-31 177.8 cm University of 16:09:00 [facility] Body weight 2023-01-31 72.576 kg University of 16:09:00 [facility] BMI 2023-01-31 22.96 kg/m2 University of 16:09:00 [facility] Oxygen saturation 2023-01-31 97 /min University of in Arterial blood 16:09:00 [facility] Systolic blood 2023-01-31 134 mm[Hg] University of pressure 14:50:00 [facility] Diastolic blood 2023-01-31 72 mm[Hg] University o f pressure 14:50:00 [facility] Heart rate 2023-01-31 85 /min University of 14:50:00 [facility] Body temperature 2023-01-31 36.39 Tia University of 14:50:00 [facility] Respiratory rate 2023-01-31 20 /min University of 14:50:00 [facility] Body weight 2023-01-31 72.576 kg University of 14:50:00 [facility] BMI 2023-01-31 22.96 kg/m2 University of 14:50:00 [facility] Oxygen saturation 2023-01-31 100 /min [facility] in Arterial blood 14:50:00 [place] [facility] Respiratory rate 2023-01-29 20 /min University of 13:40:00 [facility] Oxygen saturation 2023-01-29 100 /min [facility] in Arterial blood 13:40:00 [place] [facility] Systolic blood 2023-01-29 123 mm[Hg] University of pressure 13:06:00 [facility] Diastolic blood 2023-01-29 76 mm[Hg] University o f pressure 13:06:00 [facility] Heart rate 2023-01-29 97 /min University of 13:06:00 [facility] Body temperature 2023-01-29 36.61 Tia University of 13:06:00 [facility] Body height 2023-01-29 177.8 cm University of 13:06:00 [facility] Body weight 2023-01-29 72.576 kg University of 13:06:00 [facility] BMI 2023-01-29 22.96 kg/m2 University of 13:06:00 [facility] Systolic blood 2023-01-27 115 mm[Hg] University of pressure 11:47:00 [facility] Diastolic blood 2023-01-27 75 mm[Hg] University o f pressure 11:47:00 [facility] Heart rate 2023-01-27 100 /min University of 11:47:00 [facility] Body temperature 2023-01-27 35.78 Tia University of 11:47:00 [facility] Respiratory rate 2023-01-27 28 /min University of 11:47:00 [facility] Oxygen saturation 2023-01-27 99 /min University of in Arterial blood 11:47:00 [facility] Body height 2023-01-27 177.8 cm University of 09:57:00 [facility] Body weight 2023-01-27 72.576 kg University of 09:57:00 [facility] BMI 2023-01-27 22.96 kg/m2 University of 09:57:00 [facility] Heart rate 2023-01-24 88 /min University of 20:55:00 [facility] Oxygen saturation 2023-01-24 93 /min [facility] of in Arterial blood 20:55:00 [facility] Respiratory rate 2023-01-24 22 /min University of 20:52:00 [facility] Systolic blood 2023-01-24 128 mm[Hg] University of pressure 20:30:00 [facility] Diastolic blood 2023-01-24 69 mm[Hg] University o f pressure 20:30:00 [facility] Body temperature 2023-01-24 36.67 Tia University of 17:24:00 [facility] Body height 2023-01-24 177.8 cm University of 17:24:00 [facility] Body weight 2023-01-24 72.576 kg University of 17:24:00 [facility] BMI 2023-01-24 22.96 kg/m2 University of 17:24:00 [facility] Systolic blood 2023-01-24 129 mm[Hg] University of pressure 01:00:00 [facility] Diastolic blood 2023-01-24 76 mm[Hg] University o f pressure 01:00:00 [facility] Heart rate 2023-01-24 77 /min University of 01:00:00 [facility] Respiratory rate 2023-01-24 18 /min University of 01:00:00 [facility] Oxygen saturation 2023-01-24 99 /min [facility] in Arterial blood 01:00:00 [facility] Body temperature 2023-01-24 35.61 Tia warm blankets University of 00:02:00 applied [facility] Body weight 2023-01-24 58.968 kg University of 00:02:00 [facility] BMI 2023-01-24 18.65 kg/m2 University of 00:02:00 [facility] Heart rate 2023-01-22 93 /min University of 23:46:00 [facility] Respiratory rate 2023-01-22 20 /min University of 23:46:00 [facility] Oxygen saturation 2023-01-22 100 /min [facility] of in Arterial blood 23:46:00 [facility] Systolic blood 2023-01-22 146 mm[Hg] [facility] of pressure 23:21:00 [facility] Diastolic blood 2023-01-22 93 mm[Hg] University o f pressure 23:21:00 [facility] Body temperature 2023-01-22 36.72 Tia University of 23:21:00 [facility] Body weight 2023-01-22 58.968 kg University of 23:21:00 [facility] BMI 2023-01-22 18.65 kg/m2 University of 23:21:00 [facility] Heart rate 2023-01-21 84 /min University of 21:57:00 [facility] Respiratory rate 2023-01-21 18 /min University of :57:00 [facility] Oxygen saturation 2023-01-21 97 /min [facility] of in Arterial blood 21:57:00 [facility] Systolic blood 2023-01-21 103 mm[Hg] University of pressure 21:00:00 [facility] Diastolic blood 2023-01-21 61 mm[Hg] University o f pressure 21:00:00 [facility] Body temperature 2023-01-21 36.56 Tia University of 19:24:00 [facility] Body weight 2023-01-21 58.968 kg University of 19:24:00 [facility] BMI 2023-01-21 18.65 kg/m2 University of 19:24:00 [facility] Systolic blood 2023-01-19 111 mm[Hg] University of pressure 21:00:00 [facility] Diastolic blood 2023-01-19 64 mm[Hg] University o f pressure 21:00:00 [facility] Heart rate 2023-01-19 85 /min University of :00:00 [facility] Body temperature 2023-01-19 36.56 Tia University of 21:00:00 [facility] Respiratory rate 2023-01-19 17 /min University of :00:00 [facility] Oxygen saturation 2023-01-19 98 /min [facility] in Arterial blood 21:00:00 [facility] Body height 2023-01-19 177.8 cm University of 06:22:00 [facility] Body weight 2023-01-19 58.968 kg University of 06:22:00 [facility] BMI 2023-01-19 18.65 kg/m2 University of 06:22:00 [facility] Systolic blood 2023-01-17 116 mm[Hg] University of pressure 12:05:00 [facility] Diastolic blood 2023-01-17 69 mm[Hg] University o f pressure 12:05:00 [facility] Heart rate 2023-01-17 100 /min University of 12:05:00 [facility] Respiratory rate 2023-01-17 24 /min University of 12:05:00 [facility] Oxygen saturation 2023-01-17 93 /min [facility] in Arterial blood 12:05:00 [place] [facility] Body temperature 2023-01-17 35.39 Tia University of 10:59:00 [facility] Body height 2023-01-17 177.8 cm University of 10:59:00 [facility] Body weight 2023-01-17 58.968 kg University of 10:59:00 [facility] BMI 2023-01-17 18.65 kg/m2 University of 10:59:00 [facility] Systolic blood 2023-01-07 122 mm[Hg] University of pressure 19:38:00 [facility] Diastolic blood 2023-01-07 86 mm[Hg] University o f pressure 19:38:00 [facility] Heart rate 2023-01-07 110 /min University of 19:38:00 [facility] Respiratory rate 2023-01-07 16 /min University of 19:38:00 [facility] Body height 2023-01-07 177.8 cm University of 19:38:00 [facility] Body weight 2023-01-07 59.966 kg University of 19:38:00 [facility] BMI 2023-01-07 18.97 kg/m2 University of 19:38:00 [facility] Systolic blood 2022-12-26 118 mm[Hg] [facility] of pressure 18:00:00 [facility] Diastolic blood 2022-12-26 79 mm[Hg] University o f pressure 18:00:00 [facility] Heart rate 2022-12-26 93 /min University of 18:00:00 [facility] Respiratory rate 2022-12-26 20 /min University of 18:00:00 [facility] Oxygen saturation 2022-12-26 95 /min [facility] in Arterial blood 18:00:00 [place] [facility] Body temperature 2022-12-26 36.11 Tia University of 15:49:00 [facility] Body height 2022-12-26 177.8 cm University of 15:49:00 [facility] Body weight 2022-12-26 72.576 kg University of 15:49:00 [facility] BMI 2022-12-26 22.96 kg/m2 University of 15:49:00 [facility] Respiratory rate 2022-12-12 18 /min University of 16:45:00 [facility] Oxygen saturation 2022-12-12 99 /min [facility] in Arterial blood 16:45:00 [place] [facility] Systolic blood 2022-12-12 135 mm[Hg] [facility] pressure 16:11:00 [facility] Diastolic blood 2022-12-12 80 mm[Hg] University o f pressure 16:11:00 [facility] Heart rate 2022-12-12 77 /min University of 16:11:00 [facility] Body temperature 2022-12-12 35.89 Tia University of 16:11:00 [facility] Body weight 2022-12-12 65 kg University of 08:50:00 [facility] BMI 2022-12-12 20.56 kg/m2 University of 08:50:00 [facility] Body height 2022-12-11 177.8 cm University of 04:23:00 [facility] Heart rate 2022-12-04 95 /min University of 12:33:00 [facility] Respiratory rate 2022-12-04 17 /min University of 12:33:00 [facility] Oxygen saturation 2022-12-04 98 /min [facility] in Arterial blood 12:33:00 [facility] Systolic blood 2022-12-04 125 mm[Hg] University of pressure 12:20:00 [facility] Diastolic blood 2022-12-04 74 mm[Hg] University o f pressure 12:20:00 [facility] Body temperature 2022-12-04 36.61 Tia University of 12:20:00 [facility] Body height 2022-12-02 177.8 cm University of 05:16:00 [facility] Body weight 2022-12-02 72.576 kg University of 05:16:00 [facility] BMI 2022-12-02 22.96 kg/m2 University of 05:16:00 [facility] Systolic blood 2022-12-01 114 mm[Hg] University of pressure 13:00:00 [facility] Diastolic blood 2022-12-01 78 mm[Hg] University o f pressure 13:00:00 [facility] Heart rate 2022-12-01 88 /min University of 13:00:00 [facility] Respiratory rate 2022-12-01 20 /min University of 13:00:00 [facility] Oxygen saturation 2022-12-01 98 /min [facility] in Arterial blood 13:00:00 [place] [facility] Body temperature 2022-12-01 36.67 Tia [facility] 10:13:00 [facility] Body height 2022-12-01 177.8 cm University of 10:13:00 [facility] Body weight 2022-12-01 72.576 kg [...] rate 2022-11-28 87 /min University of 17:00:00 [facility] Respiratory rate 2022-11-28 23 /min [facility] of 17:00:00 [facility] Oxygen saturation 2022-11-28 96 /min [facility] in Arterial blood 17:00:00 [facility] [place] [facility] Body temperature 2022-11-28 36.78 Tia [facility] 16:00:00 [facility] Body weight 2022-11-27 67.132 kg University of 12:00:00 [facility] BMI 2022-11-27 21.24 kg/m2 University of 12:00:00 [facility] Body height 2022-11-27 177.8 cm University of 08:39:00 [facility] Systolic blood 2022-11-19 152 mm[Hg] University of pressure 10:48:00 [facility] Diastolic blood 2022-11-19 88 mm[Hg] University o f pressure 10:48:00 [facility] Heart rate 2022-11-19 92 /min University of 10:48:00 [facility] Respiratory rate 2022-11-19 16 /min University of 10:48:00 [facility] Oxygen saturation 2022-11-19 98 /min [facility] in Arterial blood 10:48:00 [facility] Body temperature 2022-11-19 36.22 Tia [facility] 08:20:00 [facility] Body height 2022-11-19 177.8 cm University of 08:20:00 [facility] Body weight 2022-11-19 67.132 kg University of 08:20:00 [facility] BMI 2022-11-19 21.24 kg/m2 University of 08:20:00 [facility] Systolic blood 2022-11-19 152 mm[Hg] University of pressure 02:18:57 [facility] Diastolic blood 2022-11-19 91 mm[Hg] University o f pressure 02:18:57 [facility] Heart rate 2022-11-19 109 /min University of 02:18:57 [facility] Respiratory rate 2022-11-19 22 /min University of 02:18:57 [facility] Oxygen saturation 2022-11-19 95 /min [facility] in Arterial blood 02:18:57 [facility] Body temperature 2022-11-19 36.78 Tia University of 02:17:11 [facility] Body height 2022-11-19 177.8 cm University of 00:52:00 [facility] Body weight 2022-11-19 67.132 kg University of 00:52:00 [facility] BMI 2022-11-19 21.24 kg/m2 University of 00:52:00 [facility] Heart rate 2022-11-11 75 /min University of 17:35:00 [facility] Respiratory rate 2022-11-11 18 /min University of 17:35:00 [facility] Oxygen saturation 2022-11-11 95 /min [facility] in Arterial blood 17:35:00 [facility] Systolic blood 2022-11-11 130 mm[Hg] [facility] of pressure 17:25:00 [facility] Diastolic blood 2022-11-11 71 mm[Hg] University o f pressure 17:25:00 [facility] Body temperature 2022-11-11 35.94 Tia University of 17:25:00 [facility] Body weight 2022-11-11 77.52 kg University of 09:34:00 [facility] BMI 2022-11-11 24.52 kg/m2 University of 09:34:00 [facility] Body height 2022-11-09 177.8 cm University of 19:30:00 [facility] Systolic blood 2020-12-29 96 mm[Hg] University of pressure 15:24:00 [facility] Diastolic blood 2020-12-29 66 mm[Hg] University o f pressure 15:24:00 [facility] Heart rate 2020-12-29 71 /min University of 15:24:00 [facility] Body temperature 2020-12-29 36.33 Tia University of 15:24:00 [facility] Body weight 2020-12-29 72.576 kg University of 15:24:00 [facility] BMI 2020-12-29 22.96 kg/m2 University of 15:24:00 [facility] Oxygen saturation 2020-12-29 95 /min [facility] of in Arterial blood 15:24:00 [facility] Systolic blood 2020-12-18 117 mm[Hg] University of pressure 19:07:00 [facility] Diastolic blood 2020-12-18 77 mm[Hg] University o f pressure 19:07:00 [facility] Heart rate 2020-12-18 77 /min University of 19:07:00 [facility] Body temperature 2020-12-18 36.22 Tia University of 19:07:00 [facility] Respiratory rate 2020-12-18 18 /min University of 19:07:00 [facility] Body height 2020-12-18 177.8 cm University of 19:07:00 [facility] Body weight 2020-12-18 73.211 kg University of 19:07:00 [facility] BMI 2020-12-18 23.16 kg/m2 University of 19:07:00 [facility] Systolic blood 2020-12-12 109 mm[Hg] University of pressure 18:00:00 [facility] Diastolic blood 2020-12-12 74 mm[Hg] University o f pressure 18:00:00 [facility] Heart rate 2020-12-12 78 /min University of 18:00:00 [facility] Respiratory rate 2020-12-12 20 /min University of 18:00:00 [facility] Oxygen saturation 2020-12-12 96 /min [facility] in Arterial blood 18:00:00 [facility] [place] [facility] Body temperature 2020-12-12 37.28 Tia [facility] of 16:33:00 [facility] Body height 2020-12-12 177.8 cm University of 16:33:00 [facility] Body weight 2020-12-12 70.308 kg University of 16:33:00 [facility] BMI 2020-12-12 22.24 kg/m2 University of 16:33:00 [facility] Systolic blood 2020-12-08 125 mm[Hg] University of pressure 18:55:00 [facility] Diastolic blood 2020-12-08 82 mm[Hg] University o f pressure 18:55:00 [facility] Heart rate 2020-12-08 75 /min University of 18:55:00 [facility] Body temperature 2020-12-08 36.56 Tia University of 18:55:00 [facility] Respiratory rate 2020-12-08 16 /min University of 18:55:00 [facility] Body height 2020-12-08 177.8 cm University of 18:55:00 [facility] Body weight 2020-12-08 73.12 kg University of 18:55:00 [facility] BMI 2020-12-08 23.13 kg/m2 University of 18:55:00 [facility] Systolic blood 2019-05-04 127 mm[Hg] University of pressure 04:21:00 [facility] Diastolic blood 2019-05-04 86 mm[Hg] University o f pressure 04:21:00 [facility] Heart rate 2019-05-04 99 /min University of 04:21:00 [facility] Respiratory rate 2019-05-04 26 /min University of 04:21:00 [facility] Body height 2019-05-04 177.8 cm University of 04:21:00 [facility] Body weight 2019-05-04 72.576 kg University of 04:21:00 [facility] BMI 2019-05-04 22.96 kg/m2 University of 04:21:00 [facility] Oxygen saturation 2019-05-04 99 /min [facility] in Arterial blood 04:21:00 [facility] Pulse oximetry Branch Systolic blood 2019-05-04 127 mm[Hg] University of pressure 04:21:00 [facility] Diastolic blood 2019-05-04 86 mm[Hg] University o f pressure 04:21:00 [facility] Heart rate 2019-05-04 99 /min University of 04:21:00 [facility] Respiratory rate 2019-05-04 26 /min University of 04:21:00 [facility] Body height 2019-05-04 177.8 cm [facility] 04:21:00 [facility] Body weight 2019-05-04 72.576 kg [facility] 04:21:00 [facility] BMI 2019-05-04 22.96 kg/m2 [facility] 04:21:00 [facility] Oxygen saturation 2019-05-04 99 /min [facility] in Arterial blood 04:21:00 [facility] by Pulse oximetry Branch Procedures Procedure Date / Time Performing Clinician Source Performed [id number] 2023-03-15 00:00:[address] [facility] CONSENT/REFUSAL FOR 2023-03-01 19:49:30 Doctor Unassigned, No Un [facility] DIAGNOSIS AND TREATMENT Name Medical [place] TRANSTHORACIC ECHO (TTE) 2023-02-16 13:56:56 Dedrick Toth [facility] COMPLETE W/ CONTRAST Medical Bra nch TROPONIN I 2023-02-16 11:32:00 Dedrick Toth [facility] COMP. METABOLIC PANEL 2023-02-16 11:32:00 Dedrick Toth [facility] ([id number]) [facility] CBC WITH DIFF 2023-02-16 11:32:00 Dedrick Toth [facility] N-TERMINAL PRO-BNP 2023-02-16 11:32:00 Dedrick Toth [facility] URINALYSIS 2023-02-15 21:18:00 Francisca Bryant [facility] HB ECG ROUTINE & RHYTHM 2023-02-15 20:15:35 Francisca Bryant [facility] XR CHEST 1 VW 2023-02-15 20:14:30 Francisca Bryant [facility] AC PANEL 21 + LACTIC 2023-02-15 20:02:00 Francisca Bryant [facility] ACID [facility] MAGNESIUM 2023-02-15 20:01:00 Francisca Bryant [facility] TROPONIN I 2023-02-15 20:01:00 Francisca Bryant [facility] COMP. METABOLIC PANEL 2023-02-15 20:01:00 Francisca Bryant [facility] ([id number]) Medical Branch CBC WITH DIFF 2023-02-15 20:01:00 Francisca Bryant [facility] ASSIGNMENT OF BENEFITS 2023-02-07 19:52:07 Doctor Unassigned, No [facility] CONSENT/REFUSAL FOR 2023-02-07 19:51:03 Doctor Unassigned, No Un [facility] [place] [facility]AT[facility] Name Medical Branch CONSENT/REFUSAL FOR 2023-02-04 19:51:56 Doctor Unassigned, No Un [facility] [place] DIAGNOSIS AND TREATMENT Name Medical Branch TROPONIN I 2023-01-31 20:21:00 Kristie [facility] COMP. METABOLIC PANEL 2023-01-31 20:21:00 Rachael Flowers [facility] ([id number]) Medical Branch ETHANOL 2023-01-31 20:21:00 Kristie [facility] CBC WITH DIFF 2023-01-31 20:21:00 Kristie [facility] N-TERMINAL PRO-BNP 2023-01-31 20:21:00 Rachael Flowers [facility] CONSENT/REFUSAL FOR 2023-01-31 18:39:05 Doctor Unassigned, No Un [facility] [place] DIAGNOSIS AND TREATMENT [facility] Medical Branch CONSENT/REFUSAL FOR 2023-01-31 15:54:08 Doctor Unassigned, No Un [facility] [place] DIAGNOSIS AND TREATMENT [facility] Medical Branch CONSENT/REFUSAL FOR 2023-01-31 14:29:18 Doctor Unassigned, No Un [facility] [place] DIAGNOSIS AND TREATMENT Name [facility] ACUTE CARE VENOUS BLOOD 2023-01-27 10:45:00 Bessie Oswald [facility] GAS [facility] TROPONIN I 2023-01-27 10:16:00 Bessie Oswald [facility] BASIC METABOLIC PANEL 2023-01-27 10:16:00 Bessie Oswald [facility] (NA, K, CL, CO2, Medical Branch GLUCOSE, BUN, CREATININE, CA) CBC WITH DIFF 2023-01-27 10:16:00 Bessie Oswald [facility] N-TERMINAL PRO-BNP 2023-01-27 10:16:00 Bessie Oswald [facility] URINALYSIS 2023-01-24 20:23:00 Stephanie [facility] HEAD WO CONTRAST 2023-01-24 19:38:00 Stephanie Almonte [facility] AC ABG + LACTIC ACID 2023-01-24 18:37:00 [facility] 2023-01-24 18:19:00 Stephanie [facility] RAPID STREP SCREEN FOR 2023-01-24 18:19:00 Stephanie Almonte [facility] GROUP A [facility] COVID-19 (ID NOW RAPID 2023-01-24 18:19:00 Stephanie Almonte [facility] TESTING) [facility] TROPONIN I 2023-01-24 17:52:00 Stephanie [facility]te [facility] COMP. METABOLIC PANEL 2023-01-24 17:52:00 Stephanie Almonte [facility] ([id number]) Medical Branch ETHANOL 2023-01-24 17:52:00 Stephanie [facility] CBC WITH DIFF 2023-01-24 17:52:00 Stephanie [facility] N-TERMINAL PRO-BNP 2023-01-24 17:52:00 Stephanie Almonte [facility] COMP. METABOLIC PANEL 2023-01-21 20:58:00 Louis Hong [facility] ([id number]) [facility] TROPONIN I 2023-01-21 20:05:00 Singer Louis [facility] CBC WITH DIFF 2023-01-21 20:05:00 Singer [facility] N-TERMINAL PRO-BNP 2023-01-21 20:05:00 Louis Hong [facility] AC PANEL 21 + LACTIC 2023-01-19 08:31:00 Agapito Hackett [facility] ACID [facility] D-DIMER 2023-01-19 08:17:00 Hackett, [facility] BASIC METABOLIC PANEL 2023-01-19 08:15:00 Iza Varma [facility] (NA, K, CL, CO2, Medical Branch GLUCOSE, BUN, CREATININE, CA) CBC WITH DIFF 2023-01-19 08:15:00 Iza Varma [facility] N-TERMINAL PRO-BNP 2023-01-19 08:15:00 [facility] 2023-01-17 12:23:30 Marisol Devlin [facility] XR CHEST 1 VW 2023-01-17 11:25:05 [facility] 2023-01-17 11:04:00 Marisol Devlin [facility] COMP. METABOLIC PANEL 2023-01-17 11:04:00 Marisol Devlin [facility] ([id number]) [facility] CBC WITH DIFF 2023-01-17 11:04:00 Marisol Devlin [facility] N-TERMINAL PRO-BNP 2023-01-17 11:04:00 Marisol Devlin [facility] COMP. METABOLIC PANEL 2022-12-26 17:23:00 Iza Varma [facility] ([id number]) [facility] XR CHEST 1 VW 2022-12-26 16:39:21 Iza Varma [facility] hospital URINE DRUG (IMMUNOASSAY) 2022-12-26 16:29:00 Iza Varma [facility] SCREEN URINALYSIS 2022-12-26 16:29:00 Iza Varma [facility] CBC WITH DIFF 2022-12-26 16:28:00 Iza Varma [facility] acute hospital MAGNESIUM 2022-12-12 08:55:00 Karri [facility] BASIC METABOLIC PANEL 2022-12-12 08:55:00 [facility] (NA, K, CL, CO2, Medical Branch GLUCOSE, BUN, CREATININE, CA) LIPID PANEL 2022-12-12 08:55:00 [facility] ([id number]TOTAL Medical Branch CHOLESTEROL, TRIGLYCERIDES, HDL) N-TERMINAL PRO-BNP 2022-12-12 08:55:00 [facility]UM 2022-12-11 08:30:00 Dedrick Toth [facility] OSMOLALITY, SERUM OR 2022-12-11 08:30:00 [facility] PLASMA [facility] FREE T4 2022-12-11 08:30:00 Dedrick Toth [facility] BASIC METABOLIC PANEL 2022-12-11 08:30:00 Dedrick Toth [facility] (NA, K, CL, CO2, Medical [place] GLUCOSE, BUN, CREATININE, CA) CBC WITH DIFF 2022-12-11 08:30:00 Dedrick Toth [facility] N-TERMINAL PRO-BNP 2022-12-11 08:30:00 Dedrick Toth [facility] OSMOLALITY URINE 2022-12-11 03:24:00 Dedrick Toth [facility] SODIUM, URINE RANDOM 2022-12-11 03:24:00 Dedrick [facility]oth [facility] URINALYSIS 2022-12-11 01:15:00 Singer [facility] HB ECG ROUTINE & RHYTHM 2022-12-11 00:38:04 [address] [facility] [address] HEAD WO CONTRAST 2022-12-11 00:32:23 Singer Louis [facility] XR CHEST 1 VW 2022-12-11 00:29:20 Singer [facility] TROPONIN I 2022-12-11 00:08:00 Singer [facility] COMP. METABOLIC PANEL 2022-12-11 00:08:00 Louis Hong [facility] ([id number]) Medical Branch ETHANOL 2022-12-11 00:08:00 Singer [facility] CBC WITH DIFF 2022-12-11 00:08:00 Singer [facility] N-TERMINAL PRO-BNP 2022-12-11 00:08:00 Louis Hong [facility] LACTIC ACID WHOLE BLOOD 2022-12-11 00:03:00 Singer Louis [facility] AUTHORIZATION FOR 2022-12-09 05:01:00 Doctor Unassigned, No [facility] RELEASE OF [facility] BASIC METABOLIC PANEL 2022-12-04 10:43:00 [facility] (NA, K, CL, CO2, Medical Branch GLUCOSE, BUN, CREATININE, CA) CBC WITH DIFF 2022-12-04 10:43:00 Ben [facility] OSMOLALITY URINE 2022-12-03 17:05:00 Jonnathan Sudhakar [facility] SODIUM, URINE RANDOM 2022-12-03 17:05:00 Sudhakar De Santiago Un iversity [facility] MAGNESIUM 2022-12-03 10:20:00 Ben [facility] BASIC METABOLIC PANEL 2022-12-03 10:20:00 [facility] (NA, K, CL, CO2, [facility] GLUCOSE, BUN, CREATININE, CA) CBC WITH DIFF 2022-12-03 10:20:00 Ben [facility] BASIC METABOLIC PANEL 2022-12-02 05:27:00 Carlo [facility] (NA, K, CL, CO2, Medical Branch GLUCOSE, BUN, CREATININE, CA) CONSENT/REFUSAL FOR 2022-12-02 05:08:30 Doctor Unassigned, No [facility] HOSPITAL ADMISSION 2022-12-02 05:01:00 Doctor Unassigned, No Uni [facility] COVID-19 (ID NOW RAPID 2022-12-01 13:01:00 Ernesto Piper [facility] TESTING) [facility] XR CHEST 1 VW 2022-12-01 12:40:25 [facility] 2022-12-01 12:17:26 Marisol [facility] ACUTE CARE ARTERIAL 2022-12-01 12:06:00 Marisol Devlin [facility] BLOOD GAS Medical Branch TROPONIN I 2022-12-01 11:51:00 Marisol Devlin [facility] BASIC METABOLIC PANEL 2022-12-01 11:51:00 Marisol Devlin [facility] (NA, K, CL, CO2, Medical Branch GLUCOSE, BUN, CREATININE, CA) CBC WITH DIFF 2022-12-01 11:51:00 Marisol Devlin [facility] BASIC METABOLIC PANEL 2022-11-28 16:51:00 Leila Chapa [facility] (NA, K, CL, CO2, Medical Branch GLUCOSE, BUN, CREATININE, CA) URIC ACID 2022-11-28 08:14:00 [facility] 2022-11-28 08:14:00 [facility] BASIC METABOLIC PANEL 2022-11-28 08:14:00 Leila Chapa [facility] (NA, K, CL, CO2, Medical Branch GLUCOSE, BUN, CREATININE, CA) CBC WITH DIFF 2022-11-28 08:14:00 María Diaz [facility] BASIC METABOLIC PANEL 2022-11-28 04:16:00 María Diaz [facility] (NA, K, CL, CO2, Medical Branch GLUCOSE, BUN, CREATININE, CA) BASIC METABOLIC PANEL 2022-11-28 00:33:00 Leila Chapa [facility] (NA, K, CL, CO2, Medical Branch GLUCOSE, BUN, CREATININE, CA) BASIC METABOLIC PANEL 2022-11-27 19:55:00 María Diaz [facility] (NA, K, CL, CO2, Medical Branch GLUCOSE, BUN, CREATININE, CA) MRSA / MSSA SCREEN BY 2022-11-27 09:21:00 María Diaz [facility] OSMOLALITY, SERUM OR 2022-11-27 09:10:00 María Diaz [facility] PLASMA [facility] OSMOLALITY URINE 2022-11-27 09:04:00 María Diaz [facility] BASIC METABOLIC PANEL 2022-11-27 09:04:00 María Diaz [facility] (NA, K, CL, CO2, Medical Branch GLUCOSE, BUN, CREATININE, CA) URINE DRUG (IMMUNOASSAY) 2022-11-27 09:04:00 María Diaz [facility] SCREEN URINALYSIS 2022-11-27 09:04:00 María Diaz [facility] acute hospital CREATININE, URINE RANDOM 2022-11-27 09:04:00 María Diaz [facility] SODIUM, URINE RANDOM 2022-11-27 09:04:00 María [facility] XR CHEST 1 VW 2022-11-27 06:15:54 Bessie Oswald [facility] acute hospital MAGNESIUM 2022-11-27 05:33:00 María Diaz [facility] acute hospital TROPONIN I 2022-11-27 05:33:00 Bessie Oswald [facility] COMP. METABOLIC PANEL 2022-11-27 05:33:00 Bessie Oswald [facility] ([id number]) [facility] ETHANOL 2022-11-27 05:33:00 Bessie Oswald [facility] CBC WITH DIFF 2022-11-27 05:33:00 Bessie Oswald [facility] acute hospital GLYCOSYLATED HEMOGLOBIN 2022-11-27 05:33:00 Leila Chapa [facility] (A1C) [facility] N-TERMINAL PRO-BNP 2022-11-27 05:33:00 Bessie Oswald [facility] HB ECG ROUTINE & RHYTHM 2022-11-27 05:31:54 Bessie Oswald [facility] STRIP [facility] COMP. METABOLIC PANEL 2022-11-19 08:44:00 Iza Varma [facility] ([id number]) [facility] CBC WITH DIFF 2022-11-19 08:44:00 Iza Varma [facility] acute hospital N-TERMINAL PRO-BNP 2022-11-19 08:44:00 Iza Varma [facility] Medical Branch BASIC METABOLIC PANEL 2022-11-11 10:52:00 Iza Eden [facility] (NA, K, CL, CO2, Medical Branch GLUCOSE, BUN, CREATININE, CA) CBC WITH DIFF 2022-11-11 10:52:00 Iza Eden [facility] BASIC METABOLIC PANEL 2022-11-11 02:16:00 [facility] (NA, K, CL, CO2, Medical Branch GLUCOSE, BUN, CREATININE, CA) BASIC METABOLIC PANEL 2022-11-10 22:45:00 [facility] (NA, K, CL, CO2, Medical Branch GLUCOSE, BUN, CREATININE, CA) BASIC METABOLIC PANEL 2022-11-10 17:27:00 [facility] (NA, K, CL, CO2, Medical Branch GLUCOSE, BUN, CREATININE, CA) BASIC METABOLIC PANEL 2022-11-10 11:49:00 [facility] (NA, K, CL, CO2, Medical Branch GLUCOSE, BUN, CREATININE, CA) MAGNESIUM 2022-11-10 07:14:00 Travis Zeng [facility] acute hospital BASIC METABOLIC PANEL 2022-11-10 07:14:00 [facility] (NA, K, CL, CO2, Medical Branch GLUCOSE, BUN, CREATININE, CA) CBC WITH DIFF 2022-11-10 07:14:00 [facility] XR CHEST 1 VW 2022-11-09 07:53:00 aMrisol Devlin [facility] LIPASE 2022-11-09 07:53:00 Marisol Devlin [facility] TROPONIN I 2022-11-09 07:53:00 Marisol Devlin [facility] COMP. METABOLIC PANEL 2022-11-09 07:53:00 Marisol Devlin [facility] ([id number]) Medical Branch CBC WITH DIFF 2022-11-09 07:53:00 Marisol Devlin [facility] N-TERMINAL PRO-BNP 2022-11-09 07:53:00 Marisol Devlin [facility] ACUTE CARE ARTERIAL 2022-11-09 07:50:00 Marisol Devlin [facility] BLOOD GAS [facility] HB ECG ROUTINE & RHYTHM 2022-11-09 07:39:47 Marisol Devlin [facility] ASSIGNMENT OF BENEFITS 2021-05-20 19:26:54 Doctor Unassigned, No [facility] POCT URINALYSIS AUTO 2020-12-18 19:04:00 Gokul [facility] CT ABDOMEN PELVIS W 2020-12-12 17:25:03 Francisca Bryant [facility] BASIC METABOLIC PANEL 2020-12-12 16:47:00 Francisca Bryant [facility] (NA, K, CL, CO2, Medical Branch GLUCOSE, BUN, CREATININE, CA) CBC WITH DIFF 2020-12-12 16:47:00 Francisca Bryant [facility] URINALYSIS 2020-12-12 16:47:00 Francisca Bryant [facility] NOTICE OF PRIVACY 2020-12-12 16:28:57 Doctor Unassigned, [facility] CONSENT/REFUSAL FOR 2020-12-12 16:28:23 Doctor Unassigned, No [facility] POCT URINALYSIS AUTO 2020-12-08 18:56:00 Jeanette [facility]cd[facility] CONSENT/REFUSAL FOR 2020-12-08 18:26:17 Doctor Unassigned, No [facility] Branch ASSIGNMENT OF BENEFITS 2020-12-08 18:25:58 Doctor Unassigned, No [facility] AUTHORIZATION FOR 2020-02-20 05:01:00 Doctor Unassigned, No [facility] RELEASE OF [facility] NOTICE OF PRIVACY 2019-05-04 04:10:29 Doctor Unassigned, No [facility] CONSENT/REFUSAL FOR 2019-05-04 04:10:09 Doctor Unassigned, No Un [facility] DIAGNOSIS AND TREATMENT Name [facility] Encounters Start End Encounter Admission Attending Care Care Encounter Source Date/Time Date/Time Type Type Clinicians Facility Department ID 2021-07-19 Emergency [facility] [id number] Univers 08:46:[address] [facility] 2023-03-15 2023-03-19 Inpatient EM Rudy Xiao HCAWU INTE.02 [id number] [facility] 07:16:00 14:47:[address] [facility] 2023-03-01 2023-03-01 Office [facility] [id number] Univers 16:30:00 17:00:00 Visit HerminiaConductor [id number] it y [facility] 4.2.7.2.686 Nelson as JACKIE?BLEA [id number] [facility] [address] [place] MEDICAL OFFICE BUILDING 2023-03-01 2023-03-01 Outpatient R ADRIANO [facility] [id number] Univers 16:30:00 16:30:00 HERMINIA ity of [facility] 2023-03-01 2023-03-01 Orders Doctor ELDER [id number] Univers 00:00:00 00:00:00 Only Unassigned, ASHER [id number] ity of [place] [facility] 4.2.7.2.686 Nelson as [id number] [address] 2023-03-01 2023-03-01 Refill Christa [facility] [id number] Univers 00:00:00 00:00:00 , Mily HEALTH [id number] ity of M [facility] [id number] Nelson as JACKIE?BLEA [id number] [facility] [address] [place] MEDICAL OFFICE BUILDING 2023-02-21 2023-02-21 Transition GARY Frye [id number] Univers 00:00:00 00:00:00 of Care Taylor B SHAIKH [id number] it [place] [id number] [facility] 403 Branch 2023-02-15 2023-02-18 Inpatient X KARRI [facility] PARRISH [id number] Univers 14:41:00 16:11:00 TRAVIS [facility] 2023-02-15 2023-02-18 Hospital Iza Varma [facility] [id number] Univers 14:41:00 16:11:00 Encounter Francisca Bryant 350.1.13 .10 ity Travis Zeng [facility] 4.2.7.2.686 [facility] [id number] [address] 2023-02-07 2023-02-07 Emergency X JULIANEW [facility] ERT [id number] Univers 14:30:00 16:01:00 PRADIP [facility] 2023-02-07 2023-02-07 Emergency CarterlucasNEW [facility] 1.2.840.114 [id number] Univers 14:30:00 16:01:00 Pradip DERAS [id number] ity [facility] 4.2.7.2.686 [facility] [id number] [address] 2023-02-07 2023-02-07 Outpatient R CARL ORLANDO [facility] [id number] Univers 10:20:00 10:20:00 CARL ORLANDO [facility] 2023-02-05 2023-02-05 Emergency X [facility]NEW [facility] ERT [id number] Univers 14:53:00 16:10:00 HERMINIA [facility] 2023-02-05 2023-02-05 Emergency MarquisNEW [facility] [id number] Univers 14:53:00 16:10:00 Herminia DERAS [id number] i ty of [facility] 4.2.7.2.686 [facility] [id number] [address] 2023-02-04 2023-02-04 Emergency X [facility]NEW [facility] ERT [id number] Univers 15:26:00 16:25:00 FRANCISCA [facility] 2023-02-04 2023-02-04 Emergency Manny, [facility] [id number] Univers 15:26:00 16:25:00 Francisca DERAS [id number] ity of [place] 4.[address] [place] [id number] 2023-02-03 2023-02-03 Emergency Sandie HONG, [facility] ERT [id number] Univers 17:46:00 18:47:[address] [place] [address] [facility] 2023-02-03 2023-02-03 Emergency X , [facility] ERT [id number] Univers 17:46:00 18:47:[address] [facility] 2023-02-03 2023-02-03 Emergency , [facility] [id number] Univers 17:46:00 18:47:00 Louis DERAS [id number] i ty of [place] 4.2.7.2.[address] [place] [id number] 2023-02-03 2023-02-03 Emergency Jayezechariah, [facility] [id number] Univers 12:43:00 15:04:00 Bessie DERAS [id number] i ty of [place] 4.2.7.2.[address] [place] [id number] 2023-02-02 2023-02-02 Emergency X , [facility] ERT [id number] Univers 16:49:00 18:10:[address] [facility] 2023-02-02 2023-02-02 Emergency Hong, [facility] [id number] Univers 16:49:00 18:10:00 Louis DERAS [id number] i ty of [place] 4.2.7.2.[address] [place] [id number] 2023-01-31 2023-01-31 Emergency X KRISTIE, [facility] ERT [id number] Univers 13:55:00 16:50:[address] [facility] 2023-01-312023-01-31 Emergency X KRISTIE, [facility] ERT [id number] Univers 13:55:00 16:50:[address] [facility] 2023-01-31 2023-01-31 Emergency Kristie, [facility] [id number] Univers 13:55:00 16:50:00 Rachael BRAEDEN [id number] i ty of [facility] [id number] [facility] [id number] [address] 2023-01-31 2023-01-31 Emergency X SRAVAN, [facility] ERT [id number] Univers 11:11:00 12:12:00 LEOBARDO [facility] 2023-01-31 2023-01-31 Emergency Maria [facility]NEW [facility] [id number] Univers 11:11:00 12:12:00 Leobardo DERAS 350.1.13.10 i ty of [facility] 4.2.7.2.[address] [place] [id number] 2023-01-31 2023-01-31 Emergency [facility] 1.2.031.558 [id number] Univers 09:51:00 10:16:00 BRAEDEN 350.1.13.10 i ty of [facility] 4.2.7.2.686 [facility] [id number] [address] 2023-01-29 2023-01-29 Emergency X MARQUIS, [facility] ERT [id number] Univers 08:08:00 10:00:00 HERMINIA [facility] 2023-01-29 2023-01-29 Emergency [facility] 1.2.009.514 [id number] Univers 08:08:00 10:00:00 Herminia DERAS 350.1.13.10 i ty of [facility] 4.2.7.2.[address] [place] [id number] 2023-01-27 2023-01-27 Emergency X DAREK, [facility] ERT [id number] Univers 04:50:00 07:03:[address] [facility] 2023-01-27 2023-01-27 Emergency [facility] 1.2.952.614 [id number] Univers 04:50:00 07:03:00 Bessie DERAS 350.1.13.10 i ty of [facility] 4.2.7.2.686 [facility] [phone] [address] 2023-01-27 2023-01-27 Newton [facility] 1.2.446.664 [id number] Univers 00:00:00 00:00:00 Nomi DERAS 350.1.13.10 i ty of [facility] 4.2.7.2.686 [facility] [phone] Sc dic[address] 2023-01-24 2023-01-24 Emergency X GAGENEW [facility] ERT [id number] Univers 12:28:00 16:16:00 STEPHANIE [facility] 2023-01-24 2023-01-24 Emergency G[facility]NEW [facility] 1.2.917.565 [id number] Univers 12:28:00 16:16:00 Stephanie BRAEDEN 350.1.13.10 i ty of Meek [facility] 4.2.7.2.686 [facility] [id number] [address] 2023-01-23 2023-01-23 Emergency Sandie VAR[facility]EW [facility] ERT [id number] Univers 19:02:00 20:36:00 IZA [facility] 2023-01-23 2023-01-23 Emergency [facility] 1.2.281.320 [id number] Univers 19:02:00 20:36:00 Iza Apple BRAEDEN 350.1.13.10 i ty of [facility] 4.2.7.2.686 [facility] [id number] [address] 2023-01-22 2023-01-22 Emergency X AVANINEW [facility] ERT [id number] Univers 18:24:00 19:55:[address] [facility] 2023-01-22 2023-01-22 Emergency [facility] 1.2.996.643 [id number] Univers 18:24:00 19:55:00 Iza OGLESBYRADHA 350.1.13.10 i ty of [facility] 4.2.7.2.686 [facility] [id number] [facility] [address] 2023-01-21 2023-01-21 Emergency X [facility] ERT [id number] Univers 14:20:00 18:14:[address] [facility] 2023-01-21 2023-01-21 Emergency HongNEW [facility] 1.2.954.049 [id number] Univers 14:20:00 18:14:00 Louis OGLESBYRADHA 350.1.13.10 i ty of [place] 4.2.7.2.686 [facility] [id number] [facility] [address] 2023-01-20 2023-01-20 Transition GARY Frye 1.2.840.114 [id number] Univers 00:00:00 00:00:00 of Mack SHAIKH 350.1.13.10 it y of GIULIANA 4.2.7.2.686 [facility] [id number] [facility] 403 [address] 2023-01-19 2023-01-19 [facility] 1.2.84 0.114 [id number] Univers 01:15:00 19:40:00 Encounter Iza Varma MENDELRADHA 350.1.13.10 ity of Agapito Hackett [place] 4.2.7.2.686 [facility] [id number] [place] 141170 Branch 2023-01-17 2023-01-17 Emergency X CLAUSNEW [facility] ERT [id number] Univers 05:57:00 07:37:[address] [facility] 2023-01-17 2023-01-17 Emergency ClausNEW [facility] 1.2.083.854 [id number] Univers 05:57:00 07:37:00 Marisol OGLESBYRADHA 350.1.13.10 ity of [facility] 4.2.7.2.686 [facility] [id number] [place] [address] Branch 2023-01-17 2023-01-17 Emergency X CLAUSNEW [facility] ERT [id number] Univers 05:57:00 07:37:[address] [facility] 2023-01-10 2023-01-10 Letter [facility] 1.2.840.114 [id number] Univers 00:00:00 00:00:00 (Out) Herminia [employer] 350.1.13.10 it y of [place] 4.2.7.2.686 Nelson as JACKIE?BLEA [id number] [address] OFFICE [facility] 2023-01-07 2023-01-07 [facility] [id number] Univers 14:30:00 15:25:[address] [facility] 2023-01-07 2023-01-07 Office [facility] 1.2.840.114 [id number] Univers 14:30:00 15:25:56 Visit Herminia [employer] 350.1.13.10 it y of [place] 4.2.7.2.686 [place] JACKIE?BLEA [id number] [address] OFFICE [facility] 2022-12-26 2022-12-26 Emergency X [facility] ERT [id number] Univers 10:50:00 14:12:00 [facility] 2022-12-26 2022-12-26 Emergency [facility] 1.2.909.834 [id number] Univers 10:50:00 14:12:00 Iza S [place] 350.1.13.10 i ty of [place].7.2.[place] [id number] [facility] [address] [place] 2022-12-14 2022-12-14 Outpatient R NOMI MARY [facility] 10 [id number] Univers 11:30:00 11:30:00 NOMI MARY i ty of [facility] 2022-12-14 2022-12-14 Transition GARY Frye 1.2.840.114 [id number] Univers 00:00:00 00:00:00 of Care Taylorrober GUADARRAMAY 350.1.13.10 it y of [place] [id number] [facility] 403 [address] 2022-12-10 2022-12-12 Outpatient X KARRI [facility] [id number] Univers 18:49:00 14:35:00 TRAVIS ity of [facility] 2022-12-10 2022-12-12 [facility] Louis Hong [facility] 1.2.840.1 14 [id number] Univers 18:49:00 14:35:00 Encounter Dedrick Toth 350.1.13. 10 ity of Travis Zeng [place] 4.2.7.2.686 [facility] [phone] [facility] 081 [address] 2022-12-10 2022-12-10 Case Mathew [facility] 1.2.840.114 [id number] Univers 00:00:00 00:00:00 Management Nomi DERAS 350.1.13.10 ity of [place] [id number] [facility] 085 [facility] 2022-12-10 2022-12-10 Transition GARY Caro 1.2.840.114 101 [id number] Univers 00:00:00 00:00:00 of Care Cecy SHAIKH 350.1.13.10 [place] [id number] [facility] 403 [place] 2022-12-09 2022-12-09 Orders Doctor ELDER 1.2.840.114 [id number] Univers 00:00:00 00:00:00 Only Unassigned, ASHER 350.1.13.10 ity of [place] [facility] 4.2.7.2.686 [place] as [id number] [facility] 009 [address] 2022-12-06 2022-12-06 Transition GARY Frye 1.2.840.114 101 [id number] Univers 00:00:00 00:00:00 of Care Taylor B SHAIKH 350.1.13.10 it [place] [id number] [facility] 403 [address] 2022-12-02 2022-12-04 [facility] Carlo Maki [facility] 1.2.8 40.114 [id number] Univers 00:13:00 12:30:[address] [facility] 350.1.13.10 ity of Clive Contreras 4.2.7.2.686 [facility] [id number] [facility] 110 [address] ([facility]) 2022-12-01 2022-12-01 Emergency U ERNESTO PIPER [facility] ERT [id number] Univers 05:32:00 09:08:00 [facility] Francois [facility] 2022-12-01 2022-12-01 Emergency Marisol Devlin [facility] 1.2.840 .114 [id number] Univers 05:32:00 09:08:00 Ernesto Piper BRAEDEN 350.1.13.10 ity of Krissy Powers 4.2.7.2.686 [facility] [id number] [place] 9[address]474 Branch 2022-12-01 2022-12-01 Emergency U ERNESTO PIPER [facility] ERT [id number] Univers 05:32:00 09:08:00 [facility] BLACKMAN [facility] 2022-11-26 2022-11-28 Outpatient X DHARMESH [facility] [place] [id number] Univers 22:55:00 13:50:00 LEILAHCA [facility] 2022-11-26 2022-11-28 Hospital ZulayBessie apple [facility] 1.2.840.11 4 [id number] Univers 22:55:00 13:50:00 Encounter María Diaz 350.1.13.10 ity of Leila Chapa 4.2.7.2.686 [facility] [id number] [place] 914470 Branch 2022-11-19 2022-11-19 Emergency X [facility]W [facility] ERT [id number] Univers 02:17:00 05:12:00 IZA [facility] 2022-11-19 2022-11-19 Emergency Avani [facility] 1.2.212.140 [id number] Univers 02:17:00 05:12:00 Iza DERAS 350.1.13.10 i ty of [place] 4.2.7.2.686 [facility] [id number] [facility] 084 [address] 2022-11-18 2022-11-18 Emergency X [facility]NEW [facility] ERT [id number] Univers 18:52:00 20:29:[address] [facility] 2022-11-18 2022-11-18 Emergency M[facility]NEW [facility] 1.2.840.114 10 [id number] Univers 18:52:00 20:29:00 Francisca DERAS 350.1.13.10 ity of [place] 4.2.7.2.6 [facility] [id number] [facility] [address] [place] 2022-11-17 2022-11-17 Telephone [facility]NEW [facility] 1.2.721.644 [id number] Univers 00:00:00 00:00:00 Nomi DERAS 350.1.13.10 i ty of [facility] 4.2.7.2.686 [facility] PROFESSIO [id number] Sc dicMiguel [place] 083285 [facility] 2022-11-12 2022-11-12 Transition GARY Frye 1.2.840.114 [id number] Univers 00:00:00 00:00:00 of Care Taylor SHAIKH 350.1.13.10 it y of [place] 4.2.7.[address] [place] [address] [id number] [facility] 403 [address] 2022-11-09 2022-11-11 Inpatient X KARRI [facility] [place] [id number] Univers 01:32:00 13:35:[address] [facility] 2022-11-09 2022-11-11 [facility] 1.2.840. 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 2021-05-20 2021-05-20 Orders Doctor ELDER 1.2.840.114 [id number] Univers 00:00:00 00:00:00 Only Unassigned, ASHER 350.1.13.10 ity of [place] [facility] 4.2.7.2.686 [place] as [phone] [address] 2021-05-20 2021-05-20 Telephone [facility] 1.2.840.114 [id number] Univers 00:00:00 00:00:00 [facility] 350.1.13.10 i ty of [place] [id number] Sc dical [facility] 204 [facility] 2020-12-29 2020-12-29 Office [facility] 1.2.840.114 [id number] Univers 10:12:45 11:07:51 [facility] 350.1.13.10 i ty [place].2.[place] [phone] Sc dical [facility] 204 [facility] 2020-12-29 2020-12-29 Outpatient [facility] [id number] Univers 10:15:00 10:15:00 [facility]UL [facility] 2020-12-18 2020-12-18 Office Yue [facility] 1.2.840.114 [id number] Univers 13:36:17 14:58:35 Visit Rm, Adc Surg Spec Procedure [place] 3 50.1.13.10 ity of [place].2.[place] [id number] Sc dical nal [address] [place] [address] 2020-12-18 2020-12-18 Outpatient R YUE [facility] [id number] Univers 14:00:00 14:00:[address] [facility] 2020-12-16 2020-12-16 [facility] [id number] Univers 00:00:00 00:00:00 JEANETTE [facility] 2020-12-16 2020-12-16 Telephone [facility] 1.2.462.700 [id number] Univers 00:00:00 00:00:00 Jeanette Deras 350.1.13.10 it[place] of [place].2.[place] [id number] Sc dical nal [address] [place] [address] 2020-12-12 2020-12-12 Emergency [facility] 1.2.840.114 [id number] [facility] 11:36:00 13:42:00 Francisca Deras 350.1.13.10 it[place] of [place].2.686 [place] [id number] [address] 2020-12-12 2020-12-12 Telephone [facility] 1.2.992.394 [id number] Univers 00:00:00 00:00:00 Jeanette Deras 350.1.13.10 it[place] of [place].2.[place] [id number] Sc dical nal [address] [place] [address] 2020-12-08 2020-12-08 Office [facility] 1.2.840.114 [id number] Univers 13:28:10 14:09:14 Visit Jeanette Deras 350.1.13.10 ity of [place].2.[place] [phone] Sc dical nal [address] [place] [address] 2020-12-08 2020-12-08 Outpatient R VIOLETA [facility] [id number] Univers 13:30:00 13:30:[address] [facility] 2020-12-08 2020-12-08 Orders Doctor ELDER 1.2.840.114 [id number] Univers 00:00:00 00:00:00 Only Unassigned, ASHER 350.1.13.10 ity of [place] [facility] 4.2.7.2.686 [place] as [id number] [address] 2020-12-07 2020-12-07 Nurse ELDER Perez 1Pavan2.840.114 [id number] Univers 00:00:00 00:00:00 Triage Herminia Apple ASHER 350.1.13.10 ity of HOSPITAL 4.2.7.2.686 [place] as [id number] [address] 2020-06-19 2020-06-19 Outpatient Pepper, [facility] [id number] [facility] 13:30:00 13:30:[address] 2020-02-20 2020-02-20 Orders Doctor ELDER 1.2.840.114 [id number] 00:00:00 00:00:00 Only Unassigned, ASHER 350.1.13.10 [place] [facility] 4.2.7.2.686 [id number] 009 2020-02-20 2020-02-20 Orders Doctor FRIEDMAN 1.2.840.114 [id number] Univers 00:00:00 00:00:00 Only Unassigned, ASHER 350.1.13.10 ity of [place] [facility] 4.2.7.2.686 [place] as [id number] [address] 2019-08-28 2019-08-28 Emergency X MARQUIS [facility] ERT [id number] Univers 08:25:33 11:54:[address] [facility] 2019-08-24 2019-08-24 Emergency X SINGER [facility] ERT [id number] Univers 01:43:17 03:52:[address] [facility] 2019-05-03 2019-05-04 Emergency [facility]NEW [facility] 1.2.200.748 [id number] 23:28:18 00:27:00 Ramesh Deras 350.1.13.10 [place] 4.2.7.2.686 [place] [id number] 084 2019-05-03 2019-05-04 Emergency Huang, [facility] 1.2.658.018 [id number] [facility] 23:28:18 00:27:00 Ramesh Deshpande Braeden 350.1.13.10 i ty of [place] 4.2.7.2.686 [facility] [place] [id number] [address] 2019-05-03 2019-05-03 Orders Doctor ELDER 1.2.840.114 [id number] 00:00:00 00:00:00 Only Unassigned, ASHER 350.1.13.10 [place] [facility] 4.2.7.2.686 [id number] 009 2019-05-03 2019-05-03 Orders Doctor ELDER 1.2.840.114 [id number] Univers 00:00:00 00:00:00 Only Unassigned, ASHER 350.1.13.10 ity of [place] [facility] 4.2.7.2.686 [facility] [phone] [address] Results Test Description Test Time Test Comments Results Result Comments Source GLUCOSE BEDSIDE TESTING 2023-03-19 11:23:00 Test Item Value Reference Range Interpretation Comme nts GLUCOSE BEDSIDE TESTING (test code = GLUBED) 112 MG/DL 60-99 H GLUCOSE BEDSIDE [id number] 07:35:00 Test Item Value Reference Range Interpretation Comments GLUCOSE BEDSIDE TESTING (test code 170 MG/DL 60-99 H = GLUBED) VITAMIN [id number] 15:12:00 Test Item Value Reference Range Interpretation Comments VITAMIN B12 (test code = VITB12) 738 pg/mL 239-931 N FOLIC [id number] 15:12:00 Test Item Value Reference Range Interpretation Comments FOLIC ACID (test 4.9 ng/mL REFERENCE V ALUES: code = FOLR) NORMAL: 2.76 - >20 ng/ML DEFICIENT: 1.04 - 2.79 ng/ML COMPREHENSIVE METABOLIC [id number] 11:38:00 Test Item Value Reference Range Interpretation [...] the recommended for keon for GFRby the [facility] Kidney Foundation for Adults.The GFR will [...] PHOSPHATASE (test code = ALKP) CBC W/AUTO [id number] 11:24:00 Test Item Value Reference Range Interpretation [...] 0.00 K/mm3 0.0-0.1 N NRBC#) ARTERIAL BLOOD [id number] 17:25:00 Test Item Value Reference Range Interpretation [...] mated message] code = TEMPA) The system [employer] generated this result transmitted ref erence range: 37. The reference range was not used to int erpret this result as normal/abnormal . ABG SITE (test code = LR SITEA) ALLENS TEST (test Y CHECK code = ALLENS) FIO2 (test code = 36 % COHBGFFIO2) [id number] 12:29:00 Test Item Value Reference Range Interpretation Comments PHOSPHOROUS (test code = PHOS) 3.5 MG/DL 2.5-4.5 N ADD ON TEST? [id number] 12:29:00 Test Item Value Reference Range Interpretation Comments MAGNESIUM (test code = MAG) 1.8 MG/DL 1.6-2.3 N ADD ON TEST? YesARTERIAL BLOOD [id number] 12:26:00 Test Item Value Reference Range Interpretation [...] % 0.4-1.5 L = METHGB) VENOUS BLOOD [id number] 11:46:00 Test Item Value Reference Range Interpretation [...] % 0.4-1.5 L = METHGB) BASIC METABOLIC [id number] 07:06:00 Test Item Value Reference Range Interpretation [...] MG/DL 8.4-10.2 L CA) NT PRO-BRAIN NATRIURETIC [id number] 07:06:00 Test Item Value Reference Range Interpretation [...] causes* of NT-p roBNP elevation. -------- -------- [id number] 07:06:00 Test Item Value Reference Range Interpretation Comments TROPONIN-I (test code = TROPI) < 0.012 NG/ML 0.012-0.033 L - XR CHEST [id number] 06:59:00 [facility] : 1960 Sex: M Patient Name: JUAN C MONGE Unit No: [id number] EXAMS: CPT CODE: [id number] XR CHEST 1V 65551 EXAMINATION: - XR CHEST 1V HISTORY: Chest [...] t.[email or web address].[email or web address] Orig Print D/T: S: 03/15/2023 (0702) [facility] NAME: JUAN C MONGE [address] PHYS: [place] [address] : 1960 AGE: 62 SEX: M LOC: RUCHI PHONE #: [phone] EXAM DATE: 03/15/2023 STATUS: REGER FAX #: [phone] RADIOLOGY NO: PAGE 1 Signed ReportCBC W/O [id number] 06:42:00 Test Item Value Reference Range Interpretation [...] (test code = 0.00 K/mm3 0.0-0.1 N [facility]#) TROPONIN [id number] 21:12:01 Test Item Value Reference Range Interpretation Comments TROPONIN I (test code = <=0.034 3284227776) OMAYRA (test code = OMAYRA) Reference (Normal) [...] biotin. Lab Interpretation Normal (test code = 01081-4) [facility]. METABOLIC PANEL (55629)2023-02-15 21:00:57 Test Item Value Reference Range Interpretation Comments NA (test code = 133 mmol/L 135-145 L 8317703853) K (test code = 4.5 mmol/L 3.5-5.0 2795781569) CL (test code = 90 mmol/L 98-108 L 6478451614) CO2 TOTAL (test code = 40 mmol/L 23-31 H 0694168299) AGAP (test code = 3 2-16 8198495795) BUN (test code = 25 mg/dL 7-23 H 4739448299) GLUCOSE (test code = 107 mg/dL 70-110 9205912224) CREATININE (test code = 0.88 mg/dL 0.60-1.25 3828923828) TOTAL BILI (test code = 1.6 mg/dL 0.1-1.1 H 5554913654) CALCIUM (test code = 8.9 mg/dL 8.6-10.6 5591311506) T PROTEIN (test code = 6.1 g/dL 6.3-8.2 L 3674594667) ALBUMIN (test code = 3.7 g/dL 3.5-5.0 2415818225) ALK PHOS (test code = 56 U/L 34-122 2992256204) ALTv (test code = 14 U/L 5-50 1742-6) AST(SGOT) (test code = 12 U/L 13-40 L 4558117210) eGFR (test code = 87.2 mL/min/1.73m2 9153406989) OMAYRA (test code = OMAYRA) Association of [...] tests). Lab Interpretation Abnormal (test code = 78480-2) [id number] 21:00:57 Test Item Value Reference Range Interpretation Comments MAGNESIUM (test code = 8667923737) 2.0 mg/dL 1.7-2.4 Lab Interpretation (test code = Normal 86218-8) [facility] WITH [id number] 20:53:39 Test Item Value Reference Range Interpretation Comments WBC (test code = 9.03 See_Comment [Automated 3190-2) message] The sy stem which generated this [...] RDW-SD (test code = 50.1 fL 38.5-51.6 49591-0) RDW-CV (test code = 13.6 % 12.1-15.4 788-0) PLT (test code = 223 See_Comment [Automated 777-3) message] The sy stem which generated this result transmitted reference range : 150 - 328 10*3/ ?L. The reference r pasquale was not used to interpret this result as normal/abnormal . MPV (test code = 12.1 fL 9.8-13.0 16671-9) NRBC/100 WBC (test 0.0 See_Comment [Automat ed code = 0758715653) message] The system which generated this result transmitted reference range : 0.0 - 10.0 /100 WBCs. The refer ence range was not u sed to interpret th is result as normal/abnormal . NRBC x10^3 (test code See_Comment [Auto mated = 6612509969) message] The s ystem which generated this result transmitted reference range : 10*3/?L. The reference range was not used to interpret this result as normal/abnormal . GRAN MAT (NEUT) % 72.8 % (test code = 770-8) IMM GRAN % (test code 0.90 % = 9629744256) LYMPH % (test code = 17.7 % 736-9) MONO % (test code = 7.4 % 5905-5) EOS % (test code = 0.9 % 713-8) BASO % (test code = 0.3 % 706-2) GRAN MAT x10^3(ANC) 6.57 10*3/uL 1.99-6.95 (test code = 1345720085) IMM GRAN x10^3 (test 0.08 10*3/uL 0.00-0.06 H code = [id number]) LYMPH x10^3 (test code 1.60 10*3/uL 1.09-3.23 = 731-0) MONO x10^3 (test code 0.67 10*3/uL 0.36-1.02 = 742-7) EOS x10^3 (test code = 0.08 10*3/uL 0.06-0.53 711-2) BASO x10^3 (test code 0.03 10*3/uL 0.01-0.09 = 704-7) Lab Interpretation Abnormal (test code = 94150-6) [facility] [id number] 20:11:20 Test Item Value Reference Range Interpretation Comments PH (test code = 7.33 7.32-7.42 [id number]) PCO2 ERVIN (test code = 75 See_Comment H [Auto mated [id number]) message] The sy stem which generated this result transmitted reference range : 41 - 51 mmHg. The reference range was not used to interpret this result as normal/abnormal . PO2 ERVIN (test code = 20 See_Comment L [Autom ated [id number]) message] The sy stem which generated this result transmitted reference range : 25 - 40 mmHg. The reference range was not used to interpret this result as normal/abnormal . HCO3 ERVIN (test code = 39 See_Comment H [Auto mated [id number]) message] The sy stem which generated this result transmitted reference range : 24 - 28 mEq/L. The reference range was not used to interpret this result as normal/abnormal . AC VBE(BEAKER) (test 9.1 mEq/L code = 1775140822) THB ERVIN (test code = 15.9 g/dL 13.5-18.0 6543380782) %O2HB ERVIN (test code = 30.0 % 52.0-63.0 L 7582615829) %COHB ERVIN (test code = 4.1 % 0.0-1.5 H 4761301653) %METHB ERVIN (test code = 0.3 % 0.4-1.5 L 3107175113) VOL%O2 ERVIN (test code = 6.7 % 6.0-12.0 5499517788) NA (test code = 137 mmol/L 135-145 1852059242) K+ (test code = 4.5 mmol/L 3.5-5.0 3091102558) AC CA IONZ (test code = 4.60 mg/dL 4.50-5.30 0646632598) GLUCOSE (test code = 113 mg/dL 70-110 H [id number]) LACTIC ACID (test code 1.65 mmol/L 0.50-2.20 = 6066128200) Lab Interpretation Abnormal (test code = 21121-9) [facility] [id number] 21:20:05 Test Item Value Reference Range Interpretation Comments TROPONIN I (test code = 0.005 ng/mL <=0.034 1196048960) OMAYRA (test code = OMAYRA) Reference (Normal) [...] biotin. Lab Interpretation Normal (test code = 10525-4) [facility] [id number] 21:17:24 Test Item Value Reference Range Interpretation Comments NT-proBNP (test code = 712 pg/mL <=125 H 3471139852) OMAYRA (test code = OMAYRA) Biotin has been reported to cause a negative bias, interpret results relative to patient's use of biotin. Lab Interpretation (test Abnormal code = 94665-3) [facility] ChildrenETH[facility]OL2023-[facility]-15 21:13:47 ALCOHOL<10mg/dL01/31/2023 4:13 PM [facility]<10 Dcgyrljl97-292 Toxic>100 Depression of HOPPER FEEDER>400 Fatalities ReportedUnMem[facility] CenterCOM. METABOLIC PANEL ([id number]) 2023-01-31 21:10:01 Test Item Value Reference Range Interpretation Comments NA (test code = 142 mmol/L 135-145 2320322693) K (test code = 4.7 mmol/L 3.5-5.0 4906052350) CL (test code = 99 mmol/L 98-108 1685075117) CO2 TOTAL (test code = 37 mmol/L 23-31 H 8701129891) AGAP (test code = 6 2-16 0015020084) BUN (test code = 30 mg/dL 7-23 H 2686259870) GLUCOSE (test code = 100 mg/dL 70-110 4235748912) CREATININE (test code = 0.61 mg/dL 0.60-1.25 5807126125) TOTAL BILI (test code = 0.6 mg/dL 0.1-1.0 9635179935) CALCIUM (test code = 8.8 mg/dL 8.6-10.6 3988756022) T PROTEIN (test code = 5.9 g/dL 6.3-8.2 L 4024090765) ALBUMIN (test code = 3.5 g/dL 3.5-5.0 9018093025) ALK PHOS (test code = 42 U/L 34-122 2074509957) ALTv (test code = 16 U/L 5-50 1742-6) AST(SGOT) (test code = 12 U/L 13-40 L 5352516813) eGFR (test code = 133.1 mL/min/1.73m2 0371870092) OMAYRA (test code = OMAYRA) Association of [...] tests). Lab Interpretation Abnormal (test code = 35932-0) [facility] WITH [id number] 20:59:58 Test Item Value Reference Range Interpretation Comments WBC (test code = 13.02 See_Comment H [Automated 6690-2) message] The system which generated this result transmit anirudh reference range : 4.20 - 10.70 10*3/?L. The reference range was not used to interpret this result as normal/abnormal . RBC (test code = 4.09 See_Comment L [Automated 339-8) message] The system which generated this result [...] (test code = 61.6 fL 38.5-51.6 H 69442-7) RDW-CV (test code = 16.2 % 12.1-15.4 H 788-0) PLT (test code = 250 See_Comment [Automated 777-3) message] The system which generated this result transmit anirudh reference range : 150 - 328 10*3/ ?L. The reference range was not u sed to interpret th is result as normal/abnormal . MPV (test code = 10.5 fL 9.8-13.0 59369-4) NRBC/100 WBC (test 0.0 See_Comment [Automat ed code = 7740880813) message] The system which generated this result transmit anirudh reference range : 0.0 - 10.0 /100 WBCs. The reference range was not used to interpret this result as normal/abnormal . NRBC x10^3 (test code See_Comment [Auto mated = 3203536144) message] The system which generated this result transmit anirudh reference range : 10*3/?L. The reference range was not used to interpret this result as normal/abnormal . GRAN MAT (NEUT) % 90.9 % (test code = 770-8) IMM GRAN % (test code 1.20 % = 8995349152) LYMPH % (test code = 3.9 % 736-9) MONO % (test code = 3.8 % 5905-5) EOS % (test code = 0.0 % 713-8) BASO % (test code = 0.2 % 706-2) GRAN MAT x10^3(ANC) 11.83 10*3/uL 1.99-6.95 H (test code = 3076168232) IMM GRAN x10^3 (test 0.16 10*3/uL 0.00-0.06 H code = 7244085090) LYMPH x10^3 (test code 0.51 10*3/uL 1.09-3.23 L = 731-0) MONO x10^3 (test code 0.49 10*3/uL 0.36-1.02 = 742-7) EOS x10^3 (test code = 0.06-0.53 L 711-2) BASO x10^3 (test code 0.03 10*3/uL 0.01-0.09 = 704-7) Lab Interpretation Abnormal (test code = 61516-8) [facility] ChildrenTR[facility] [id number] 11:16:36 Test Item Value Reference Range Interpretation Comments TROPONIN I (test code = 0.002 ng/mL <=0.034 3943240012) OMAYRA (test code = OMAYRA) Reference (Normal) [...] biotin. Lab Interpretation Normal (test code = 06937-2) [facility] [id number] 11:13:18 Test Item Value Reference Range Interpretation Comments NT-proBNP (test code = 112 pg/mL <=125 4011382417) OMAYRA (test code = OMAYRA) Biotin has been reported to cause a negative bias, interpret results relative to patient's use of biotin. Lab Interpretation (test Normal code = 37175-9) [facility] ChildrenBASI METABOLIC PANEL (NA, K, CL, CO2, GLUCOSE, BUN, CREATININE, CA)2023-01-27 11:04:56 Test Item Value Reference Range Interpretation Comments NA (test code = 136 mmol/L 135-145 1818937861) K (test code = 4.1 mmol/L 3.5-5.0 1950718087) CL (test code = 96 mmol/L 98-108 L 4537132706) CO2 TOTAL (test code = 34 mmol/L 23-31 H 1887414530) AGAP (test code = 6 2-16 0763061560) BUN (test code = 22 mg/dL 7-23 3726403157) GLUCOSE (test code = 117 mg/dL 70-110 H 3657264895) CREATININE (test code = 0.55 mg/dL 0.60-1.25 L 5029990552) CALCIUM (test code = 8.4 mg/dL 8.6-10.6 L 7004635720) eGFR (test code = 150.0 mL/min/1.73m2 7524655039) OMAYRA (test code = OMAYRA) Association of [...] tests). Lab Interpretation Abnormal (test code = 00015-1) [facility] WITH [id number] 10:38:33 Test Item Value Reference Range Interpretation Comments WBC (test code = 9.56 See_Comment [Automated 6206-2) message] The sy stem which generated this result transmitted reference range : 4.20 - 10.70 10*3/?L. The reference range was not used to interpret this result as normal/abnormal . RBC (test code = 4.31 See_Comment [Automated 378-5) message] The sy stem which generated this [...] (test code = 56.7 fL 38.5-51.6 H 01117-1) RDW-CV (test code = 15.3 % 12.1-15.4 788-0) PLT (test code = 220 See_Comment [Automated 777-3) message] The sy stem which generated this result transmitted reference range : 150 - 328 10*3/ ?L. The reference r pasquale was not used to interpret this result as normal/abnormal . MPV (test code = 10.6 fL 9.8-13.0 56157-2) NRBC/100 WBC (test 0.0 See_Comment [Automat ed code = 6669995370) message] The system which generated this result transmitted reference range : 0.0 - 10.0 /100 WBCs. The refer ence range was not u sed to interpret th is result as normal/abnormal . NRBC x10^3 (test code See_Comment [Auto mated = 4903002983) message] The s ystem which generated this result transmitted reference range : 10*3/?L. The reference range was not used to interpret this result as normal/abnormal . GRAN MAT (NEUT) % 60.0 % (test code = 770-8) IMM GRAN % (test code 0.70 % = 2355652940) LYMPH % (test code = 26.5 % 736-9) MONO % (test code = 11.4 % 5905-5) EOS % (test code = 0.9 % 713-8) BASO % (test code = 0.5 % 706-2) GRAN MAT x10^3(ANC) 5.73 10*3/uL 1.99-6.95 (test code = 6526383516) IMM GRAN x10^3 (test 0.07 10*3/uL 0.00-0.06 H code = 0784551147) LYMPH x10^3 (test code 2.53 10*3/uL 1.09-3.23 = 731-0) MONO x10^3 (test code 1.09 10*3/uL 0.36-1.02 H = 742-7) EOS x10^3 (test code = 0.09 10*3/uL 0.06-0.53 711-2) BASO x10^3 (test code 0.05 10*3/uL 0.01-0.09 = 704-7) Lab Interpretation Abnormal (test code = 10910-7) [facility] ChildrenAMMONIA, [id number] 18:51:59 Test Item Value Reference Range Interpretation Comments AMMONIA (test code = 8746748686) 9-33 L Lab Interpretation (test code = Abnormal 88595-5) [facility] ChildrenAC ABG + LACTIC [id number] 18:40:53 Test Item Value Reference Range Interpretation Comments PH (test code = 2) 7.43 7.35-7.45 PCO2 (test code = 53 See_Comment H [Automate d 8602419806) message] The sy stem which generated this result transmitted reference range : 35 - 45 mmHg. The reference range was not used to interpret this result as normal/abnormal . PO2 (test code = 49 See_Comment L [Automated 2341500622) message] The sy stem which generated this result transmitted reference range : 80 - 100 mmHg. The reference range was not used to interpret this result as normal/abnormal . HCO3 (test code = 34 See_Comment H [Automate d 7258991775) message] The sy stem which generated this result transmitted reference range : 22 - 26 mEq/L. The reference range was not used to interpret this result as normal/abnormal . BE (test code = 7.8 See_Comment H [Automated 1608720583) message] The sy stem which generated this result transmitted reference range : -3.0 - 3.0 mEq/ L. The reference r pasquale was not used to interpret this result as normal/abnormal . LACTIC ACID (test code 0.92 mmol/L 0.50-2.20 = 6761121604) Lab Interpretation Abnormal (test code = 08199-3) [facility] ChildrenTroponin [id number] 18:28:26 Test Item Value Reference Range Interpretation Comments TROPONIN I (test code = 0.003 ng/mL <=0.034 7898380201) OMAYRA (test code = OMAYRA) Reference (Normal) [...] biotin. Lab Interpretation Normal (test code = 92848-4) [facility] ChildrenN-TERMINAL [id number] 18:25:29 Test Item Value Reference Range Interpretation Comments NT-proBNP (test code = 376 pg/mL <=125 H 8172807217) OMAYRA (test code = OMAYRA) Biotin has been reported to cause a negative bias, interpret results relative to patient's use of biotin. Lab Interpretation (test Abnormal code = 88331-4) [facility] ChildrenCOMP Metabolic Panel ([id number])2023-01-24 18:24:03 Test Item Value Reference Range Interpretation Comments NA (test code = 135 mmol/L 135-145 6239816161) K (test code = 4.0 mmol/L 3.5-5.0 7302671844) CL (test code = 90 mmol/L 98-108 L 5403120488) CO2 TOTAL (test code = 43 mmol/L 23-31 H 4276521457) AGAP (test code = 2 2-16 3688875951) BUN (test code = 12 mg/dL 7-23 1776761768) GLUCOSE (test code = 92 mg/dL 70-110 4143300847) CREATININE (test code = 0.58 mg/dL 0.60-1.25 L 4422987261) TOTAL BILI (test code = 1.3 mg/dL 0.1-1.1 H 7959978434) CALCIUM (test code = 8.6 mg/dL 8.6-10.6 2396735666) T PROTEIN (test code = 6.0 g/dL 6.3-8.2 L 4625395739) ALBUMIN (test code = 3.6 g/dL 3.5-5.0 8161130480) ALK PHOS (test code = 52 U/L 34-122 8965612750) ALTv (test code = 17 U/L 5-50 1742-6) AST(SGOT) (test code = 10 U/L 13-40 L 6822645327) eGFR (test code = 141.1 mL/min/1.73m2 4931413294) OMAYRA (test code = OMAYRA) Association of [...] tests). Lab Interpretation Abnormal (test code = 34290-6) [facility] ChildrenETH[facility]OL2023-05-08 18:23:38 ALCOHOL<10mg/dL01/24/2023 1:23 PM [facility]10 Uxqwzojk93-778 Toxic>100 Depression of HOPPER FEEDER>400 Fatalities ReportedUnMemorial [facility]ann–[facility] CenterCBC with [id number] 18:09:00 Test Item Value Reference Range Interpretation [...] (test code = 59.7 fL 38.5-51.6 H 60557-6) RDW-CV (test code = 15.8 % 12.1-15.4 H 788-0) PLT (test code = 239 See_Comment [Automated 777-3) message] The sy stem which generated this result transmitted reference range : 150 - 328 10*3/ ?L. The reference r pasquale was not used to interpret this result as normal/abnormal . MPV (test code = 10.5 fL 9.8-13.0 92494-4) NRBC/100 WBC (test 0.0 See_Comment [Automat ed code = 4790593257) message] The system which generated this result transmitted reference range : 0.0 - 10.0 /100 WBCs. The refer ence range was not u sed to interpret th is result as normal/abnormal . NRBC x10^3 (test code See_Comment [Auto mated = 2312232565) message] The s ystem which generated this result transmitted reference range : 10*3/?L. The reference range was not used to interpret this result as normal/abnormal . GRAN MAT (NEUT) % 64.5 % (test code = 770-8) IMM GRAN % (test code 0.40 % = 0394886032) LYMPH % (test code = 23.1 % 736-9) MONO % (test code = 9.8 % 5905-5) EOS % (test code = 1.8 % 713-8) BASO % (test code = 0.4 % 706-2) GRAN MAT x10^3(ANC) 5.06 10*3/uL 1.99-6.95 (test code = 3066230009) IMM GRAN x10^3 (test 0.03 10*3/uL 0.00-0.06 code = 7342620540) LYMPH x10^3 (test code 1.81 10*3/uL 1.09-3.23 = 731-0) MONO x10^3 (test code 0.77 10*3/uL 0.36-1.02 = 742-7) EOS x10^3 (test code = 0.14 10*3/uL 0.06-0.53 711-2) BASO x10^3 (test code 0.03 10*3/uL 0.01-0.09 = 704-7) Lab Interpretation Abnormal (test code = 84976-9) [facility] ChildrenCOMP. METABOLIC PANEL (40989)2023-01-21 21:33:50 Test Item Value Reference Range Interpretation Comments NA (test code = 136 mmol/L 135-145 9675978655) K (test code = 4.3 mmol/L 3.5-5.0 9124020403) CL (test code = 95 mmol/L 98-108 L 9376501662) CO2 TOTAL (test code = 38 mmol/L 23-31 H 2561541063) AGAP (test code = 3 2-16 2797867237) BUN (test code = 17 mg/dL 7-23 8244490604) GLUCOSE (test code = 102 mg/dL 70-110 6135178679) CREATININE (test code = 0.62 mg/dL 0.60-1.25 2903184399) TOTAL BILI (test code = 0.8 mg/dL 0.1-1.9 9040274790) CALCIUM (test code = 7.8 mg/dL 8.6-10.6 L 1402940022) T PROTEIN (test code = 4.9 g/dL 6.3-8.2 L 5800665588) ALBUMIN (test code = 3.0 g/dL 3.5-5.0 L 2222055810) ALK PHOS (test code = 45 U/L 34-122 5007191371) ALTv (test code = 13 U/L 5-50 1742-6) AST(SGOT) (test code = 11 U/L 13-40 L 9047989104) eGFR (test code = 130.6 mL/min/1.73m2 6539673687) OMAYRA (test code = OMAYRA) Association of [...] tests). Lab Interpretation Abnormal (test code = 33390-2) [facility] ChildrenTR[facility]IN [id number] 21:11:45 Test Item Value Reference Range Interpretation Comments TROPONIN I (test code = 0.019 ng/mL <=0.034 4422458462) OMAYRA (test code = OMAYRA) Reference (Normal) [...] biotin. Lab Interpretation Normal (test code = 78996-0) [facility] ChildrenN[facility]MINAL [id number] 21:08:47 Test Item Value Reference Range Interpretation Comments NT-proBNP (test code = 266 pg/mL <=125 H Hemol yzed 2508097501) specimen OMAYRA (test code = OMAYRA) Biotin has been reported to cause a negative bias, interpret results relative to patient's use of biotin. Lab Interpretation Abnormal (test code = 06358-3) [facility] ChildrenCBC WITH [id number] 20:40:24 Test Item Value Reference Range Interpretation Comments WBC (test code = 6.78 See_Comment [Automated 4641-2) message] The sy stem which generated this result transmitted reference range : 4.20 - 10.70 10*3/?L. The reference range was not used to interpret this result as normal/abnormal . RBC (test code = 4.47 See_Comment [Automated 356-5) message] The sy stem which generated this [...] (test code = 60.4 fL 38.5-51.6 H 32514-7) RDW-CV (test code = 16.2 % 12.1-15.4 H 788-0) PLT (test code = 215 See_Comment [Automated 777-3) message] The sy stem which generated this result transmitted reference range : 150 - 328 10*3/ ?L. The reference r pasquale was not used to interpret this result as normal/abnormal . MPV (test code = 10.9 fL 9.8-13.0 10098-8) NRBC/100 WBC (test 0.0 See_Comment [Automat ed code = 3058402561) message] The system which generated this result transmitted reference range : 0.0 - 10.0 /100 WBCs. The refer ence range was not u sed to interpret th is result as normal/abnormal . NRBC x10^3 (test code See_Comment [Auto mated = 5759051883) message] The s ystem which generated this result transmitted reference range : 10*3/?L. The reference range was not used to interpret this result as normal/abnormal . GRAN MAT (NEUT) % 75.4 % (test code = 770-8) IMM GRAN % (test code 0.40 % = 0395059692) LYMPH % (test code = 15.3 % 736-9) MONO % (test code = 7.7 % 5905-5) EOS % (test code = 0.9 % 713-8) BASO % (test code = 0.3 % 706-2) GRAN MAT x10^3(ANC) 5.11 10*3/uL 1.99-6.95 (test code = 0477172342) IMM GRAN x10^3 (test 0.03 10*3/uL 0.00-0.06 code = 5013376840) LYMPH x10^3 (test code 1.04 10*3/uL 1.09-3.23 L = 731-0) MONO x10^3 (test code 0.52 10*3/uL 0.36-1.02 = 742-7) EOS x10^3 (test code = 0.06 10*3/uL 0.06-0.53 711-2) BASO x10^3 (test code 0.01-0.09 = 704-7) Lab Interpretation Abnormal (test code = 89025-7) [facility]inal [id number] 08:49:53 Test Item Value Reference Range Interpretation Comments NT-proBNP (test code = 158 pg/mL <=125 H 5906026559) OMAYRA (test code = OMAYRA) Biotin has been reported to cause a negative bias, interpret results relative to patient's use of biotin. Lab Interpretation (test Abnormal code = 37811-2) [facility] ChildrenD-[id number] 08:44:10 Test Item Value Reference Interpretation Comments Range D-DIMER (test code = See_Comment [Autom ated 6896020866) message] The system which generated this result [...] diagnosis. Lab Interpretation Normal (test code = 65451-0) [facility] METABOLIC PANEL (NA, K, CL, CO2, GLUCOSE, BUN, CREATININE, CA)2023-01-19 08:41:13 Test Item Value Reference Range Interpretation Comments NA (test code = 134 mmol/L 135-145 L 3612927614) K (test code = 5.3 mmol/L 3.5-5.0 H 6827264046) CL (test code = 91 mmol/L 98-108 L 2128990808) CO2 TOTAL (test code = 40 mmol/L 23-31 H 8486515381) AGAP (test code = 3 2-16 8102052859) BUN (test code = 14 mg/dL 7-23 1361330419) GLUCOSE (test code = 125 mg/dL 70-110 H 3842920612) CREATININE (test code = 0.64 mg/dL 0.60-1.25 7800494497) CALCIUM (test code = 8.5 mg/dL 8.6-10.6 L 6173186332) eGFR (test code = 125.9 mL/min/1.73m2 8252707706) OMAYRA (test code = OMAYRA) Association of [...] tests). Lab Interpretation Abnormal (test code = 81973-3) [facility] WITH [id number] 08:27:33 Test Item Value Reference Range Interpretation [...] (test code = 58.4 fL 38.5-51.6 H 20738-8) RDW-CV (test code = 15.9 % 12.1-15.4 H 788-0) PLT (test code = 211 See_Comment [Automated 777-3) message] The sy stem which generated this result transmitted reference range : 150 - 328 10*3/ ?L. The reference r pasquale was not used to interpret this result as normal/abnormal . MPV (test code = 10.2 fL 9.8-13.0 27815-9) NRBC/100 WBC (test 0.0 See_Comment [Automat ed code = 2437077482) message] The system which generated this result transmitted reference range : 0.0 - 10.0 /100 WBCs. The refer ence range was not u sed to interpret th is result as normal/abnormal . NRBC x10^3 (test code See_Comment [Auto mated = 6085046400) message] The s [employer] which generated this result transmitted reference range : 10*3/?L. The reference range was not used to interpret this result as normal/abnormal . GRAN MAT (NEUT) % 81.2 % (test code = 770-8) IMM GRAN % (test code 0.50 % = 7282323508) LYMPH % (test code = 10.1 % 736-9) MONO % (test code = 7.5 % 5905-5) EOS % (test code = 0.5 % 713-8) BASO % (test code = 0.2 % 706-2) GRAN MAT x10^3(ANC) 8.16 10*3/uL 1.99-6.95 H (test code = 4523060411) IMM GRAN x10^3 (test 0.05 10*3/uL 0.00-0.06 code = 4994899663) LYMPH x10^3 (test code 1.01 10*3/uL 1.09-3.23 L = 731-0) MONO x10^3 (test code 0.75 10*3/uL 0.36-1.02 = 742-7) EOS x10^3 (test code = 0.05 10*3/uL 0.06-0.53 L 711-2) BASO x10^3 (test code 0.01-0.09 = 704-7) Lab Interpretation Abnormal (test code = 23341-2) [facility] ChildrenNELA [id number] 12:09:33 Test Item Value Reference Range Interpretation Comments TROPONIN I (test code = 0.004 ng/mL <=0.034 8282877985) OMAYRA (test code = OMAYRA) Reference (Normal) [...] biotin. Lab Interpretation Normal (test code = 19617-8) [facility] [id number] 12:06:16 Test Item Value Reference Range Interpretation Comments NT-proBNP (test code = 135 pg/mL <=125 H 1856091491) OMAYRA (test code = OMAYRA) Biotin has been reported to cause a negative bias, interpret results relative to patient's use of biotin. Lab Interpretation (test Abnormal code = 98721-0) [facility]. Metabolic Panel (83389)2023-01-17 11:57:36 Test Item Value Reference Range Interpretation Comments NA (test code = 133 mmol/L 135-145 L 9261960223) K (test code = 5.0 mmol/L 3.5-5.0 4304472769) CL (test code = 91 mmol/L 98-108 L 6651848087) CO2 TOTAL (test code = 33 mmol/L 23-31 H 7298433337) AGAP (test code = 9 2-16 4137484440) BUN (test code = 10 mg/dL 7-23 4349148810) GLUCOSE (test code = 104 mg/dL 70-110 4263583772) CREATININE (test code = 0.63 mg/dL 0.60-1.25 3177936576) TOTAL BILI (test code = 1.2 mg/dL 0.1-1.1 H 5960720831) CALCIUM (test code = 9.0 mg/dL 8.6-10.6 5381405559) T PROTEIN (test code = 6.9 g/dL 6.3-8.2 0448998623) ALBUMIN (test code = 4.4 g/dL 3.5-5.0 4888206882) ALK PHOS (test code = 76 U/L 34-122 7302672151) ALTv (test code = 13 U/L 5-50 1742-6) AST(SGOT) (test code = 13 U/L 13-40 1927606306) eGFR (test code = 128.2 mL/min/1.73m2 3487300812) OMAYRA (test code = OMAYRA) Association of [...] tests). Lab Interpretation Abnormal (test code = 12636-2) [facility] with [id number] 11:30:52 Test Item Value Reference Range Interpretation Comments WBC (test code = 9.66 See_Comment [Automated 5959-2) message] The sy stem which generated this result transmitted reference range : 4.20 - 10.70 10*3/?L. The reference range was not used to interpret this result as normal/abnormal . RBC (test code = 5.00 See_Comment [Automated 303-8) message] The sy stem which generated this [...] (test code = 56.6 fL 38.5-51.6 H 54088-1) RDW-CV (test code = 15.4 % 12.1-15.4 788-0) PLT (test code = 261 See_Comment [Automated 777-3) message] The sy stem which generated this result transmitted reference range : 150 - 328 10*3/ ?L. The reference r pasquale was not used to interpret this result as normal/abnormal . MPV (test code = 10.4 fL 9.8-13.0 43406-3) NRBC/100 WBC (test 0.0 See_Comment [Automat ed code = 5390706135) message] The system which generated this result transmitted reference range : 0.0 - 10.0 /100 WBCs. The refer ence range was not u sed to interpret th is result as normal/abnormal . NRBC x10^3 (test code See_Comment [Auto mated = 8815209307) message] The s ystem which generated this result transmitted reference range : 10*3/?L. The reference range was not used to interpret this result as normal/abnormal . GRAN MAT (NEUT) % 58.9 % (test code = 770-8) IMM GRAN % (test code 0.40 % = 4504967908) LYMPH % (test code = 28.6 % 736-9) MONO % (test code = 10.5 % 5905-5) EOS % (test code = 0.9 % 713-8) BASO % (test code = 0.7 % 706-2) GRAN MAT x10^3(ANC) 5.69 10*3/uL 1.99-6.95 (test code = 3312842597) IMM GRAN x10^3 (test 0.04 10*3/uL 0.00-0.06 code = 5523110361) LYMPH x10^3 (test code 2.76 10*3/uL 1.09-3.23 = 731-0) MONO x10^3 (test code 1.01 10*3/uL 0.36-1.02 = 742-7) EOS x10^3 (test code = 0.09 10*3/uL 0.06-0.53 711-2) BASO x10^3 (test code 0.07 10*3/uL 0.01-0.09 = 704-7) Lab Interpretation Abnormal (test code = 13725-3) [facility] [id number] 10:20:57 Test Item Value Reference Range Interpretation Comments NT-proBNP (test code = 473 pg/mL <=125 H 4836757448) OMAYRA (test code = OMAYRA) Biotin has been reported to cause a negative bias, interpret results relative to patient's use of biotin. Lab Interpretation (test Abnormal code = 34559-1) [facility] (58739)(TOTAL CHOLESTEROL, TRIGLYCERIDES, HDL)2022-12-12 10:18:39 Test Item Value Reference Range Interpretation Comments CHOL (test code = 0940778787) 133 mg/dL 120-200 HDL (test code = 5278387917) 38 mg/dL >=40 L HDLC RATIO (test code = 0662562816) 3.5 <=5.0 TRIG (test code = 7018687862) 57 mg/dL 30-170 LDL CHOL (test code = 34963-8) 84 mg/dL <=160 VLDL (test code = 3667158591) 11 mg/dL 5-60 Lab Interpretation (test code = Abnormal 82861-5) [facility] 10:18:19 Test Item Value Reference Range Interpretation Comments MAGNESIUM (test code = 7315581200) 2.0 mg/dL 1.7-2.4 Lab Interpretation (test code = Normal 18229-1) [facility] (NA, K, CL, CO2, GLUCOSE, BUN, CREATININE, CA)2022-12-12 10:18:14 Test Item Value Reference Range Interpretation Comments NA (test code = 130 mmol/L 135-145 L 7484255485) K (test code = 3.7 mmol/L 3.5-5.0 1917371962) CL (test code = 89 mmol/L 98-108 L 6273782438) CO2 TOTAL (test code = 37 mmol/L 23-31 H 4401829276) AGAP (test code = 4 2-16 7667724674) BUN (test code = 13 mg/dL 7-23 1177018329) GLUCOSE (test code = 120 mg/dL 70-110 H 2802924816) CREATININE (test code = 0.56 mg/dL 0.60-1.25 L 8194506797) CALCIUM (test code = 8.3 mg/dL 8.6-10.6 L 6017627249) eGFR (test code = 146.9 mL/min/1.73m2 1873614718) OMAYRA (test code = OMAYRA) Association of [...] tests). Lab Interpretation Abnormal (test code = 68216-9) [facility] 00:54:58 ALCOHOL<10mg/dL12/10/2022 7:54 PM [facility]<10 Xgqdbhng77-496 Toxic>100 Depression of HOPPER FEEDER>400 Fatalities [facility]Un[facility] CenterTROPONIN [id number] 00:50:14 Test Item Value Reference Range Interpretation Comments TROPONIN I (test code = 0.006 ng/mL <=0.034 9491465463) OMAYRA (test code = OMAYRA) Reference (Normal) [...] biotin. Lab Interpretation Normal (test code = 92780-6) [facility] [id number]-[id number] 00:47:12 Test Item Value Reference Range Interpretation Comments NT-proBNP (test code = 291 pg/mL <=125 H 8646391561) OMAYRA (test code = OMAYRA) Biotin has been reported to cause a negative bias, interpret results relative to patient's use of biotin. Lab Interpretation (test Abnormal code = 12615-9) [facility]OL[facility] PAN[facility] ([id number])2022-12-11 00:41:12 Test Item Value Reference Range Interpretation Comments NA (test code = 126 mmol/L 135-145 L 5754463182) K (test code = 4.0 mmol/L 3.5-5.0 5288645717) CL (test code = 82 mmol/L 98-108 L 5573607681) CO2 TOTAL (test code = 40 mmol/L 23-31 H 7621390957) AGAP (test code = 4 2-16 6135030290) BUN (test code = 16 mg/dL 7-23 8966721027) GLUCOSE (test code = 97 mg/dL 70-110 4958737970) CREATININE (test code = 0.67 mg/dL 0.60-1.25 1398067479) TOTAL BILI (test code = 0.8 mg/dL 0.1-1.0 3613944882) CALCIUM (test code = 8.5 mg/dL 8.6-10.6 L 9555941563) T PROTEIN (test code = 5.9 g/dL 6.3-8.2 L 7538052827) ALBUMIN (test code = 3.5 g/dL 3.5-5.0 2694524006) ALK PHOS (test code = 49 U/L 34-122 5834308643) ALTv (test code = 18 U/L 5-50 1742-6) AST(SGOT) (test code = 11 U/L 13-40 L 7414325228) eGFR (test code = 119.4 mL/min/1.73m2 8747128278) OMAYRA (test code = OMAYRA) Association of [...] tests). Lab Interpretation Abnormal (test code = 44845-9) [facility] WITH [id number] 00:29:08 Test Item Value Reference Range Interpretation [...] RDW-SD (test code = 46.7 fL 38.5-51.6 79630-3) RDW-CV (test code = 13.6 % 12.1-15.4 788-0) PLT (test code = 263 See_Comment [Automated 777-3) message] The sy stem which generated this result transmitted reference range : 150 - 328 10*3/ ?L. The reference r pasquale was not used to interpret this result as normal/abnormal . MPV (test code = 9.7 fL 9.8-13.0 L 71524-7) NRBC/100 WBC (test 0.0 See_Comment [Automat ed code = 0395465144) message] The system which generated this result transmitted reference range : 0.0 - 10.0 /100 WBCs. The refer ence range was not u sed to interpret th is result as normal/abnormal . NRBC x10^3 (test code See_Comment [Auto mated = 1867272124) message] The s ystem which generated this result transmitted reference range : 10*3/?L. The reference range was not used to interpret this result as normal/abnormal . GRAN MAT (NEUT) % 71.6 % (test code = 770-8) IMM GRAN % (test code 0.90 % = 0664385445) LYMPH % (test code = 17.6 % 736-9) MONO % (test code = 8.7 % 5905-5) EOS % (test code = 1.0 % 713-8) BASO % (test code = 0.2 % 706-2) GRAN MAT x10^3(ANC) 7.27 10*3/uL 1.99-6.95 H (test code = 1884976739) IMM GRAN x10^3 (test 0.09 10*3/uL 0.00-0.06 H code = 8094226314) LYMPH x10^3 (test code 1.79 10*3/uL 1.09-3.23 = 731-0) MONO x10^3 (test code 0.88 10*3/uL 0.36-1.02 = 742-7) EOS x10^3 (test code = 0.10 10*3/uL 0.06-0.53 711-2) BASO x10^3 (test code 0.01-0.09 = 704-7) Lab Interpretation Abnormal (test code = 22893-3) [facility] ChildrenL[facility] Acid Whole [id number] 00:14:48 Test Item Value Reference Range Interpretation Comments LACTIC ACID (test code = 1.30 mmol/L 0.50-2.20 6808077127) Lab Interpretation (test code = Normal 14782-5) [facility] METABOLIC PANEL (NA, K, CL, CO2, GLUCOSE, BUN, CREATININE, CA)2022-12-04 11:06:33 Test Item Value Reference Range Interpretation Comments NA (test code = 123 mmol/L 135-145 L 7470241432) K (test code = 3.8 mmol/L 3.5-5.0 8902206498) CL (test code = 86 mmol/L 98-108 L 5244531175) CO2 TOTAL (test code = 36 mmol/L 23-31 H 8269252864) AGAP (test code = 1 2-16 L 4366702786) BUN (test code = 22 mg/dL 7-23 4272311820) GLUCOSE (test code = 195 mg/dL 70-110 H 6757982117) CREATININE (test code = 0.76 mg/dL 0.60-1.25 9990661791) CALCIUM (test code = 8.2 mg/dL 8.6-10.6 L 8737864717) eGFR (test code = 103.3 mL/min/1.73m2 1375521881) OMAYRA (test code = OMAYRA) Association of [...] tests). Lab Interpretation Abnormal (test code = 48834-2) [facility] WITH [id number] 10:54:29 Test Item Value Reference Range Interpretation Comments WBC (test code = 8.54 See_Comment [Automated 3490-2) message] The sy stem which generated this [...] RDW-SD (test code = 44.1 fL 38.5-51.6 89013-3) RDW-CV (test code = 13.6 % 12.1-15.4 788-0) PLT (test code = 247 See_Comment [Automated 777-3) message] The sy stem which generated this result transmitted reference range : 150 - 328 10*3/ ?L. The reference r pasquale was not used to interpret this result as normal/abnormal . MPV (test code = 9.5 fL 9.8-13.0 L 15277-1) NRBC/100 WBC (test 0.0 See_Comment [Automat ed code = 7101768332) message] The system which generated this result transmitted reference range : 0.0 - 10.0 /100 WBCs. The refer ence range was not u sed to interpret th is result as normal/abnormal . NRBC x10^3 (test code See_Comment [Auto mated = 3846350754) message] The s ystem which generated this result transmitted reference range : 10*3/?L. The reference range was not used to interpret this result as normal/abnormal . GRAN MAT (NEUT) % 93.0 % (test code = 770-8) IMM GRAN % (test code 0.90 % = 0937995890) LYMPH % (test code = 3.2 % 736-9) MONO % (test code = 2.9 % 5905-5) EOS % (test code = 0.0 % 713-8) BASO % (test code = 0.0 % 706-2) GRAN MAT x10^3(ANC) 7.94 10*3/uL 1.99-6.95 H (test code = 8442551694) IMM GRAN x10^3 (test 0.08 10*3/uL 0.00-0.06 H code = 3652766499) LYMPH x10^3 (test code 0.27 10*3/uL 1.09-3.23 L = 731-0) MONO x10^3 (test code 0.25 10*3/uL 0.36-1.02 L = 742-7) EOS x10^3 (test code = 0.06-0.53 L 711-2) BASO x10^3 (test code 0.01-0.09 = 704-7) Lab Interpretation Abnormal (test code = 11183-9) [facility] Metabolic Panel (NA, K, CL, CO2, GLUCOSE, BUN, CREATININE, CA)2022-12-03 10:44:53 Test Item Value Reference Range Interpretation Comments NA (test code = 126 mmol/L 135-145 L 8987201001) K (test code = 4.0 mmol/L 3.5-5.0 Slight 6054858208) hemolysis CL (test code = 89 mmol/L 98-108 L 4756708322) CO2 TOTAL (test code 32 mmol/L 23-31 H = 0895646034) AGAP (test code = 5 2-16 4448943443) BUN (test code = 15 mg/dL 7-23 Slight 5025254848) hemolysis GLUCOSE (test code = 115 mg/dL 70-110 H 2199592363) CREATININE (test code 0.63 mg/dL 0.60-1.25 = 4736505596) CALCIUM (test code = 7.7 mg/dL 8.6-10.6 L 8322095156) eGFR (test code = 128.2 mL/min/1.73m2 0863843347) OMAYRA (test code = OMAYRA) Association of [...] tests). Lab Interpretation Abnormal (test code = 73999-5) [facility] ChildrenMagnesium [id number] 10:44:53 Test Item Value Reference Range Interpretation Comments MAGNESIUM (test code = 3868531533) 1.6 mg/dL 1.7-2.4 L Lab Interpretation (test code = Abnormal 86144-2) [facility] with Wfnpyewvssqs8300-57-60 10:39:13 Test Item Value Reference Range Interpretation Comments WBC (test code = 11.40 See_Comment H [Automated 6577-2) message] The system which generated this result transmit anirudh reference range : 4.20 - 10.70 10*3/?L. The reference range was not used to interpret this result as normal/abnormal . RBC (test code = 4.56 See_Comment [Automated 873-0) message] The system which generated this result [...] RDW-SD (test code = 45.4 fL 38.5-51.6 89765-9) RDW-CV (test code = 13.6 % 12.1-15.4 788-0) PLT (test code = 254 See_Comment [Automated 777-3) message] The system which generated this result transmit anirudh reference range : 150 - 328 10*3/ ?L. The reference range was not u sed to interpret th is result as normal/abnormal . MPV (test code = 10.2 fL 9.8-13.0 81652-4) NRBC/100 WBC (test 0.0 See_Comment [Automat ed code = 0704194612) message] The system which generated this result transmit anirudh reference range : 0.0 - 10.0 /100 WBCs. The reference range was not used to interpret this result as normal/abnormal . NRBC x10^3 (test code See_Comment [Auto mated = 1093365598) message] The system which generated this result transmit anirudh reference range : 10*3/?L. The reference range was not used to interpret this result as normal/abnormal . GRAN MAT (NEUT) % 90.0 % (test code = 770-8) IMM GRAN % (test code 0.90 % = 7588710763) LYMPH % (test code = 5.9 % 736-9) MONO % (test code = 2.8 % 5905-5) EOS % (test code = 0.2 % 713-8) BASO % (test code = 0.2 % 706-2) GRAN MAT x10^3(ANC) 10.27 10*3/uL 1.99-6.95 H (test code = 7193962890) IMM GRAN x10^3 (test 0.10 10*3/uL 0.00-0.06 H code = 3761809234) LYMPH x10^3 (test code 0.67 10*3/uL 1.09-3.23 L = 731-0) MONO x10^3 (test code 0.32 10*3/uL 0.36-1.02 L = 742-7) EOS x10^3 (test code = 0.06-0.53 L 711-2) BASO x10^3 (test code 0.01-0.09 = 704-7) Lab Interpretation Abnormal (test code = 78800-1) [facility] METABOLIC PANEL (NA, K, CL, CO2, GLUCOSE, BUN, CREATININE, CA)2022-12-02 06:20:42 Test Item Value Reference Range Interpretation Comments NA (test code = 124 mmol/L 135-145 L 7918981675) K (test code = 4.5 mmol/L 3.5-5.0 9146315392) CL (test code = 78 mmol/L 98-108 L 4765496645) CO2 TOTAL (test code = 37 mmol/L 23-31 H 0684741587) AGAP (test code = 9 2-16 5391428598) BUN (test code = 14 mg/dL 7-23 0425702575) GLUCOSE (test code = 93 mg/dL 70-110 5791087589) CREATININE (test code = 0.71 mg/dL 0.60-1.25 1775129391) CALCIUM (test code = 9.1 mg/dL 8.6-10.6 6077231841) eGFR (test code = 111.7 mL/min/1.73m2 7970867818) OMAYRA (test code = OMAYRA) Association of [...] tests). Lab Interpretation Abnormal (test code = 98596-7) [facility]TR[facility]ERNIN [id number] 12:22:32 Test Item Value Reference Range Interpretation Comments TROPONIN I (test code = 0.008 ng/mL <=0.034 5227682953) OMAYRA (test code = OMAYRA) Reference (Normal) [...] biotin. Lab Interpretation Normal (test code = 56825-3) [facility] (NA, K, CL, CO2, GLUCOSE, BUN, CREATININE, CA)2022-12-01 12:11:11 Test Item Value Reference Range Interpretation Comments NA (test code = 124 mmol/L 135-145 L 1487006479) K (test code = 4.2 mmol/L 3.5-5.0 7110130163) CL (test code = 79 mmol/L 98-108 L 0082204552) CO2 TOTAL (test code = 37 mmol/L 23-31 H 6303755734) AGAP (test code = 8 2-16 7343169320) BUN (test code = 16 mg/dL 7-23 6277116448) GLUCOSE (test code = 105 mg/dL 70-110 0122273828) CREATININE (test code = 0.67 mg/dL 0.60-1.25 5303163779) CALCIUM (test code = 8.6 mg/dL 8.6-10.6 9328403282) eGFR (test code = 119.4 mL/min/1.73m2 7487520885) OMAYRA (test code = OMAYRA) Association of [...] tests). Lab Interpretation Abnormal (test code = 80879-7) [facility] WITH [id number] 11:59:32 Test Item Value Reference Range Interpretation Comments WBC (test code = 12.17 See_Comment H [Automated 0738-2) message] The system which generated this result [...] RDW-SD (test code = 43.8 fL 38.5-51.6 39625-3) RDW-CV (test code = 13.2 % 12.1-15.4 788-0) PLT (test code = 208 See_Comment [Automated 777-3) message] The system which generated this result transmit anirudh reference range : 150 - 328 10*3/ ?L. The reference range was not u sed to interpret th is result as normal/abnormal . MPV (test code = 9.8 fL 9.8-13.0 30491-1) NRBC/100 WBC (test 0.0 See_Comment [Automat ed code = 1524383922) message] The system which generated this result transmit anirudh reference range : 0.0 - 10.0 /100 WBCs. The reference range was not used to interpret this result as normal/abnormal . NRBC x10^3 (test code See_Comment [Auto mated = 4555399988) message] The system which generated this result transmit anirudh reference range : 10*3/?L. The reference range was not used to interpret this result as normal/abnormal . GRAN MAT (NEUT) % 85.9 % (test code = 770-8) IMM GRAN % (test code 0.50 % = 2508098512) LYMPH % (test code = 6.8 % 736-9) MONO % (test code = 6.3 % 5905-5) EOS % (test code = 0.3 % 713-8) BASO % (test code = 0.2 % 706-2) GRAN MAT x10^3(ANC) 10.44 10*3/uL 1.99-6.95 H (test code = 7682197580) IMM GRAN x10^3 (test 0.06 10*3/uL 0.00-0.06 code = 0068994436) LYMPH x10^3 (test code 0.83 10*3/uL 1.09-3.23 L = 731-0) MONO x10^3 (test code 0.77 10*3/uL 0.36-1.02 = 742-7) EOS x10^3 (test code = 0.04 10*3/uL 0.06-0.53 L 711-2) BASO x10^3 (test code 0.03 10*3/uL 0.01-0.09 = 704-7) Lab Interpretation Abnormal (test code = 28479-4) [facility] METABOLIC PANEL (NA, K, CL, CO2, GLUCOSE, BUN, CREATININE, CA)2022-11-28 17:17:23 Test Item Value Reference Range Interpretation Comments NA (test code = 120 mmol/L 135-145 L 1453619890) K (test code = 4.3 mmol/L 3.5-5.0 0181692830) CL (test code = 77 mmol/L 98-108 L 6309923356) CO2 TOTAL (test code = 40 mmol/L 23-31 H 0023398360) AGAP (test code = 3 2-16 4460319019) BUN (test code = 15 mg/dL 7-23 3494616448) GLUCOSE (test code = 151 mg/dL 70-110 H 4384563078) CREATININE (test code = 0.63 mg/dL 0.60-1.25 2841070562) CALCIUM (test code = 8.2 mg/dL 8.6-10.6 L 3255908274) eGFR (test code = 128.2 mL/min/1.73m2 4687751895) OMAYRA (test code = OMAYRA) Association of [...] tests). Lab Interpretation Abnormal (test code = 80942-3) [facility]2023-[facility]-12 06:54:10 Test Item Value Reference Range Interpretation Comments MAGNESIUM (test code = 8859135515) 1.6 mg/dL 1.7-2.4 L Lab Interpretation (test code = Abnormal 34537-2) [facility] (NA, K, CL, CO2, GLUCOSE, BUN, CREATININE, CA)2022-11-28 01:29:53 Test Item Value Reference Range Interpretation Comments NA (test code = 120 mmol/L 135-145 L 4726206860) K (test code = 3.9 mmol/L 3.5-5.0 3763630515) CL (test code = 77 mmol/L 98-108 L 5938359459) CO2 TOTAL (test code = 36 mmol/L 23-31 H 7463004777) AGAP (test code = 7 2-16 6788682645) BUN (test code = 17 mg/dL 7-23 5673288491) GLUCOSE (test code = 85 mg/dL 70-110 6141447178) CREATININE (test code = 0.76 mg/dL 0.60-1.25 1826519576) CALCIUM (test code = 8.3 mg/dL 8.6-10.6 L 2628716852) eGFR (test code = 103.3 mL/min/1.73m2 1482587757) OMAYRA (test code = OMAYRA) Association of [...] tests). Lab Interpretation Abnormal (test code = 47769-6) [facility] METABOLIC PANEL (NA, K, CL, CO2, GLUCOSE, BUN, CREATININE, CA)2022-11-27 20:36:26 Test Item Value Reference Range Interpretation Comments NA (test code = 122 mmol/L 135-145 L 8508939361) K (test code = 3.9 mmol/L 3.5-5.0 5312143155) CL (test code = 79 mmol/L 98-108 L 4608951805) CO2 TOTAL (test code = 37 mmol/L 23-31 H 2859851705) AGAP (test code = 6 2-16 5047384647) BUN (test code = 17 mg/dL 7-23 4120225691) GLUCOSE (test code = 113 mg/dL 70-110 H 4819267264) CREATININE (test code = 0.78 mg/dL 0.60-1.25 1630462426) CALCIUM (test code = 7.8 mg/dL 8.6-10.6 L 2537045911) eGFR (test code = 100.2 mL/min/1.73m2 9807137950) OMAYRA (test code = OMAYRA) Association of [...] tests). Lab Interpretation Abnormal (test code = 96621-5) [facility]OS[facility]EMOGLOBIN (A1C)2022-11-27 18:21:30 Test Item Value Reference Range Interpretation Comments HGB A1C (test code = 5.9 % 4.0-5.7 H 4548-4) OMAYRA (test code = OMAYRA) Reference RangesNormal: <5.7%Prediabetes: 5.7 - 6.4%Diabetes: > 6.5% Lab Interpretation (test Abnormal code = 74829-9) [facility] ChildrenTR[facility] [id number] 06:12:58 Test Item Value Reference Range Interpretation Comments TROPONIN I (test code = 0.007 ng/mL <=0.034 4015336426) OMAYRA (test code = OMAYRA) Reference (Normal) [...] biotin. Lab Interpretation Normal (test code = 28286-7) [facility]20[facility] 06:10:43 ALCOHOL<10mg/dL11/27/2022 12:[address] [facility]<10 Nphdpduz85-902 Toxic>100 Depression of HOPPER FEEDER>400 Fatalities ReportedUnMemorial [facility] CenterN-TERMINAL [id number]-[id number] 06:09:37 Test Item Value Reference Range Interpretation Comments NT-proBNP (test code = 311 pg/mL <=125 H 5211323005) OMAYRA (test code = OMAYRA) Biotin has been reported to cause a negative bias, interpret results relative to patient's use of biotin. Lab Interpretation (test Abnormal code = 38346-2) [facility]COMP[facility] ([id number])2022-11-27 06:08:02 Test Item Value Reference Range Interpretation Comments NA (test code = 116 mmol/L 135-145 LL 3549408636) K (test code = 4.1 mmol/L 3.5-5.0 3906909013) CL (test code = 75 mmol/L 98-108 L 0214078945) CO2 TOTAL (test code = 34 mmol/L 23-31 H 5784451697) AGAP (test code = 7 2-16 5666379191) BUN (test code = 16 mg/dL 7-23 2631630746) GLUCOSE (test code = 70 mg/dL 70-110 0508982143) CREATININE (test code = 0.62 mg/dL 0.60-1.25 7045946602) TOTAL BILI (test code = 1.2 mg/dL 0.1-1.1 H 5566886756) CALCIUM (test code = 8.1 mg/dL 8.6-10.6 L 6579978649) T PROTEIN (test code = 6.3 g/dL 6.3-8.2 4907928946) ALBUMIN (test code = 3.8 g/dL 3.5-5.0 0611333268) ALK PHOS (test code = 58 U/L 34-122 4307732025) ALTv (test code = 15 U/L 5-50 1742-6) AST(SGOT) (test code = 13 U/L 13-40 2657757450) eGFR (test code = 130.6 mL/min/1.73m2 8115365154) OMAYRA (test code = OMAYRA) Association of [...] tests). Lab Interpretation Abnormal (test code = 23272-1) [facility] WITH [id number] 05:45:18 Test Item Value Reference Range Interpretation Comments WBC (test code = 9.18 See_Comment [Automated 2523-2) message] The sy stem which generated this result transmitted reference range : 4.20 - 10.70 10*3/?L. The reference range was not used to interpret this result as normal/abnormal . RBC (test code = 4.49 See_Comment [Automated 704-8) message] The sy stem which generated this [...] RDW-SD (test code = 40.1 fL 38.5-51.6 88917-9) RDW-CV (test code = 12.6 % 12.1-15.4 788-0) PLT (test code = 216 See_Comment [Automated 857-3) message] The sy stem which generated this result transmitted reference range : 150 - 328 10*3/ ?L. The reference r pasquale was not used to interpret this result as normal/abnormal . MPV (test code = 9.4 fL 9.8-13.0 L 76415-5) NRBC/100 WBC (test 0.0 See_Comment [Automat ed code = 9600523332) message] The system which generated this result transmitted reference range : 0.0 - 10.0 /100 WBCs. The refer ence range was not u sed to interpret th is result as normal/abnormal . NRBC x10^3 (test code See_Comment [Auto mated = 9270469742) message] The s ystem which generated this result transmitted reference range : 10*3/?L. The reference range was not used to interpret this result as normal/abnormal . GRAN MAT (NEUT) % 79.1 % (test code = 770-8) IMM GRAN % (test code 0.90 % = 2675766759) LYMPH % (test code = 11.8 % 736-9) MONO % (test code = 6.8 % 5905-5) EOS % (test code = 1.2 % 713-8) BASO % (test code = 0.2 % 706-2) GRAN MAT x10^3(ANC) 7.27 10*3/uL 1.99-6.95 H (test code = 5435458371) IMM GRAN x10^3 (test 0.08 10*3/uL 0.00-0.06 H code = 6873720361) LYMPH x10^3 (test code 1.08 10*3/uL 1.09-3.23 L = 731-0) MONO x10^3 (test code 0.62 10*3/uL 0.36-1.02 = 742-7) EOS x10^3 (test code = 0.11 10*3/uL 0.06-0.53 711-2) BASO x10^3 (test code 0.01-0.09 = 704-7) Lab Interpretation Abnormal (test code = 49390-7) [facility] EOI-EIX7570-15-03 09:49:54 Test Item Value Reference Range Interpretation Comments NT-proBNP (test code = 294 pg/mL <=125 H 0453915428) OMAYRA (test code = OMAYRA) Biotin has been reported to cause a negative bias, interpret results relative to patient's use of biotin. Lab Interpretation (test Abnormal code = 05836-2) [facility]COMP[facility]OL[facility] ([id number])2022-11-19 09:41:52 Test Item Value Reference Range Interpretation Comments NA (test code = 120 mmol/L 135-145 L 2901975171) K (test code = 4.4 mmol/L 3.5-5.0 7277044775) CL (test code = 80 mmol/L 98-108 L 0674117371) CO2 TOTAL (test code = 34 mmol/L 23-31 H 3791391482) AGAP (test code = 6 2-16 9074838061) BUN (test code = 10 mg/dL 7-23 9636999818) GLUCOSE (test code = 93 mg/dL 70-110 6562012362) CREATININE (test code = 0.77 mg/dL 0.60-1.25 1501462018) TOTAL BILI (test code = 1.1 mg/dL 0.1-1.6 1576083701) CALCIUM (test code = 8.7 mg/dL 8.6-10.6 5488308723) T PROTEIN (test code = 6.9 g/dL 6.3-8.2 0773185399) ALBUMIN (test code = 4.1 g/dL 3.5-5.0 5346657808) ALK PHOS (test code = 60 U/L 34-122 6815245797) ALTv (test code = 14 U/L 5-50 1742-6) AST(SGOT) (test code = 13 U/L 13-40 2944760658) eGFR (test code = 101.7 mL/min/1.73m2 5110747492) OMAYRA (test code = OMAYRA) Association of [...] tests). Lab Interpretation Abnormal (test code = 44437-3) [facility] WITH [id number] 09:02:29 Test Item Value Reference Range Interpretation Comments WBC (test code = 8.30 See_Comment [Automated 3676-2) message] The sy stem which generated this result transmitted reference range : 4.20 - 10.70 10*3/?L. The reference range was not used to interpret this result as normal/abnormal . RBC (test code = 4.67 See_Comment [Automated 030-8) message] The sy stem which generated this [...] RDW-SD (test code = 42.3 fL 38.5-51.6 01069-9) RDW-CV (test code = 12.9 % 12.1-15.4 788-0) PLT (test code = 252 See_Comment [Automated 097-3) message] The sy stem which generated this result transmitted reference range : 150 - 328 10*3/ ?L. The reference r pasquale was not used to interpret this result as normal/abnormal . MPV (test code = 9.6 fL 9.8-13.0 L 39586-7) NRBC/100 WBC (test 0.0 See_Comment [Automat ed code = [id number]) message] The system which generated this result transmitted reference range : 0.0 - 10.0 /100 WBCs. The refer ence range was not u sed to interpret th is result as normal/abnormal . NRBC x10^3 (test code See_Comment [Auto mated = [id number]) message] The s ystem which generated this result transmitted reference range : 10*3/?L. The reference range was not used to interpret this result as normal/abnormal . GRAN MAT (NEUT) % 70.7 % (test code = 770-8) IMM GRAN % (test code 1.00 % = [id number]) LYMPH % (test code = 16.0 % 736-9) MONO % (test code = 10.5 % 5905-5) EOS % (test code = 1.3 % 713-8) BASO % (test code = 0.5 % 706-2) GRAN MAT x10^3(ANC) 5.87 10*3/uL 1.99-6.95 (test code = [id number]) IMM GRAN x10^3 (test 0.08 10*3/uL 0.00-0.06 H code = [id number]) LYMPH x10^3 (test code 1.33 10*3/uL 1.09-3.23 = 731-0) MONO x10^3 (test code 0.87 10*3/uL 0.36-1.02 = 742-7) EOS x10^3 (test code = 0.11 10*3/uL 0.06-0.53 711-2) BASO x10^3 (test code 0.04 10*3/uL 0.01-0.09 = 704-7) Lab Interpretation Abnormal (test code = 92518-1) [facility] METABOLIC PANEL (NA, K, CL, CO2, GLUCOSE, BUN, CREATININE, CA)2022-11-10 23:42:55 Test Item Value Reference Range Interpretation Comments NA (test code = 121 mmol/L 135-145 L [id number]) K (test code = 4.7 mmol/L 3.5-5.0 1000565439) CL (test code = 82 mmol/L 98-108 L 6955150496) CO2 TOTAL (test code = 34 mmol/L 23-31 H 8125588895) AGAP (test code = 5 2-16 8890940359) BUN (test code = 15 mg/dL 7-23 9528361032) GLUCOSE (test code = 120 mg/dL 70-110 H 1600185699) CREATININE (test code = 0.75 mg/dL 0.60-1.25 0277405709) CALCIUM (test code = 7.7 mg/dL 8.6-10.6 L 6690811357) eGFR (test code = 104.8 mL/min/1.73m2 9901965122) OMAYRA (test code = OMAYRA) Association of [...] tests). Lab Interpretation Abnormal (test code = 21083-8) [facility] METABOLIC PANEL (NA, K, CL, CO2, GLUCOSE, BUN, CREATININE, CA)2022-11-10 17:59:59 Test Item Value Reference Range Interpretation Comments NA (test code = 121 mmol/L 135-145 L 0102530377) K (test code = 4.3 mmol/L 3.5-5.0 8966458875) CL (test code = 81 mmol/L 98-108 L 6333308512) CO2 TOTAL (test code = 38 mmol/L 23-31 H 2549945764) AGAP (test code = 2 2-16 9532476992) BUN (test code = 15 mg/dL 7-23 2887403913) GLUCOSE (test code = 113 mg/dL 70-110 H 9876917259) CREATININE (test code = 0.74 mg/dL 0.60-1.25 8015953371) CALCIUM (test code = 7.5 mg/dL 8.6-10.6 L 2896792558) eGFR (test code = 106.5 mL/min/1.73m2 3075505133) OMAYRA (test code = OMAYRA) Association of [...] tests). Lab Interpretation Abnormal (test code = 04297-5) [facility] [id number] 13:08:23 Test Item Value Reference Range Interpretation Comments NT-proBNP (test code = 177 pg/mL <=125 H 9800111709) OMAYRA (test code = OMAYRA) Biotin has been reported to cause a negative bias, interpret results relative to patient's use of biotin. Lab Interpretation (test Abnormal code = 13087-0) [facility] ChildrenTR[facility] [id number] 08:23:33 Test Item Value Reference Range Interpretation Comments TROPONIN I (test code = 0.004 ng/mL <=0.034 8685334925) OMAYRA (test code = OMAYRA) Reference (Normal) [...] biotin. Lab Interpretation Normal (test code = 63337-7) [facility] ChildrenCOMP. METABOLIC PANEL (32496)2022-11-09 08:12:09 Test Item Value Reference Range Interpretation Comments NA (test code = 123 mmol/L 135-145 L 5775259598) K (test code = 4.2 mmol/L 3.5-5.0 2065202188) CL (test code = 78 mmol/L 98-108 L 3164431269) CO2 TOTAL (test code = 34 mmol/L 23-31 H 0949379926) AGAP (test code = 11 2-16 8971700336) BUN (test code = 8 mg/dL 7-23 0072627526) GLUCOSE (test code = 113 mg/dL 70-110 H 7057956331) CREATININE (test code = 0.87 mg/dL 0.60-1.25 5147875471) TOTAL BILI (test code = 1.2 mg/dL 0.1-1.1 H 1898752049) CALCIUM (test code = 8.8 mg/dL 8.6-10.6 7846028492) T PROTEIN (test code = 7.6 g/dL 6.3-8.2 6645716096) ALBUMIN (test code = 4.5 g/dL 3.5-5.0 0709086486) ALK PHOS (test code = 72 U/L 34-122 1087459990) ALTv (test code = 13 U/L 5-50 1742-6) AST(SGOT) (test code = 13 U/L 13-40 0233552265) eGFR (test code = 88.3 mL/min/1.73m2 2153031207) OMAYRA (test code = OMAYRA) Association of [...] tests). Lab Interpretation Abnormal (test code = 81704-8) [facility] ChildrenLIPASE, [id number] 08:11:14 Test Item Value Reference Range Interpretation Comments LIPASE (test code = 6801479386) 108 U/L 0-220 Lab Interpretation (test code = Normal 81139-5) [facility] ChildrenCBC WITH [id number] 07:59:28 Test Item Value Reference Range Interpretation Comments WBC (test code = 8.95 See_Comment [Automated message] 8329-2) The system [employer] generated this result transmitted ref erence range: 4.20 - 1 0.70 10*3/?L. The re ference range was not u sed to interpret this result as normal/abnor mal. RBC (test code = 5.07 See_Comment [Automated message] 889-8) The system [employer] generated this result transmitted ref erence range: [...] RDW-SD (test code 41.1 fL 38.5-51.6 = 94058-3) RDW-CV (test code 12.5 % 12.1-15.4 = 788-0) PLT (test code = 235 See_Comment [Automated message] 637-3) The system [employer] generated this result transmitted ref erence range: 150 - 32 8 10*3/?L. The re ference range was not u sed to interpret this result as normal/abnor mal. MPV (test code = 9.8 fL 9.8-13.0 77705-4) NRBC/100 WBC (test 0.0 See_Comment [Automat ed message] code = 8237060031) The syste m which generated this result transmitted ref erence range: 0.0 - 10 .0 /100 WBCs. The refer ence range was not u sed to interpret this result as normal/abnor mal. NRBC x10^3 (test See_Comment [Automated message] code = 3189814239) The syste m which generated this result transmitted ref erence range: 10*3/?L. The reference range was not used to interpr et this result as normal/abnormal . GRAN MAT (NEUT) % 56.9 % (test code = 770-8) IMM GRAN % (test 0.40 % code = 4992593460) LYMPH % (test code 29.4 % = 736-9) MONO % (test code 9.5 % = 5905-5) EOS % (test code = 3.0 % 713-8) BASO % (test code 0.8 % = 706-2) GRAN MAT 5.09 10*3/uL 1.99-6.95 x10^3(ANC) (test code = 4475014539) IMM GRAN x10^3 0.04 10*3/uL 0.00-0.06 (test code = 9472466790) LYMPH x10^3 (test 2.63 10*3/uL 1.09-3.23 code = 731-0) MONO x10^3 (test 0.85 10*3/uL 0.36-1.02 code = 742-7) EOS x10^3 (test 0.27 10*3/uL 0.06-0.53 code = 711-2) BASO x10^3 (test 0.07 10*3/uL 0.01-0.09 code = 704-7) [facility] ChildrenPOPR URINALYSIS, [id number] 19:05:00 Test Item Value Reference Range Interpretation [...] U APPEAR (test code = clear 3267) [facility] URINALYSIS, [id number] 19:05:00 Test Item Value Reference Range Interpretation [...] U APPEAR (test code = clear 3267) [facility] [id number] 19:05:00 Test Item Value Reference Range Interpretation [...] APPEAR (test code = clear 3267) [facility] ChildrenCT ABDOMEN PELVIS W [id number] 17:53:531. ?No hydronephrosis or nephrolithiasis. 2. ?Mild [...] hernia with mild circumferential distalesophageal thickening (2:16). [place] density within the distal stomach andat the [...] hernia with mild circumferential distalesophageal thickening (2:16). [place] density within the distal stomach andat the [...] right hydrocele.5. Additional findings as above. [facility] ChildrenUrinalysis2021-03-26 17:37:38 Test Item Value Reference Range Interpretation Comments APPEARANCE (test code = Cloudy Clear A 7269552868) COLOR (test code = Red Yellow A 9091968972) PH (test code = 4.8-8.0 4607042487) SP GRAVITY (test code = 1.003-1.030 7081265001) GLU U QUAL (test code = 50 mg/dL Normal A 9401608638) BLOOD (test code = 3+ Negative A 8496990357) KETONES (test code = Negative Negative 5891583929) PROTEIN (test code = 100 mg/dL Negative A 2887-8) UROBILIN (test code = Normal Normal 5181385600) BILIRUBIN (test code = Negative Negative 4744522342) NITRITE (test code = Negative Negative 1455693369) LEUK DIANELYS (test code = Negative Negative 0172666867) RBC/HPF (test code = >182 See_Comment H [Autom ated message] 0243092998) The system [employer] generated this result transmit anirudh reference range : 0 - 3 HPF. The refe rence range was not u sed to interpret th is result as normal/abnormal . WBC/HPF (test code = >182 See_Comment H [Autom ated message] 8794244411) The system [employer] generated this result transmit anirudh reference range : 0 - 5 HPF. The refe rence range was not u sed to interpret th is result as normal/abnormal . BACTERIA (test code = Moderate Negative A 1050734104) WBC CLUMPS (test code = See_Comment H [Au tomated message] 6261216247) The system whic h generated this result transmit anirudh reference range : <=1 HPF. The refere nce range was not u sed to interpret th is result as normal/abnormal . Lab Interpretation (test Abnormal code = 79362-9) [facility] Metabolic Panel (NA, K, CL, CO2, GLUCOSE, BUN, CREATININE, CA)2020-12-12 17:13:57 Test Item Value Reference Range Interpretation Comments NA (test code = 140 mmol/L 135-145 8776970409) K (test code = 4.5 mmol/L 3.5-5.0 4078412559) CL (test code = 100 mmol/L 98-108 1708438038) CO2 TOTAL (test code = 35 mmol/L 23-31 H 5416533347) AGAP (test code = 2-16 0790890155) BUN (test code = 25 mg/dL 7-23 H 2181089102) GLUCOSE (test code = 114 mg/dL 70-110 H 1478948721) CREATININE (test code = 1.18 mg/dL 0.60-1.25 8031944529) CALCIUM (test code = 9.0 mg/dL 8.6-10.6 1617968579) eGFR Calculation mL/min/1.73m2 (Non-) (test code = 2336163186) eGFR Calculation mL/min/1.73m2 () (test code = 5516782282) OMAYRA (test code = OMAYRA) Association of [...] tests). Lab Interpretation Abnormal (test code = 17087-6) [facility] with [id number] 16:56:10 Test Item Value Reference Range Interpretation Comments WBC (test code = See_Comment [Automated 4890-2) message] The sy stem which generated this result transmitted reference range : 4.20 - 10.70 10*3/?L. The reference range was not used to interpret this result as normal/abnormal . RBC (test code = See_Comment [Automated 879-8) message] The sy stem which generated this [...] RDW-SD (test code = 42.9 fL 38.5-51.6 65566-7) RDW-CV (test code = 11.9 % 12.1-15.4 L 788-0) PLT (test code = See_Comment [Automated 777-3) message] The sy stem which generated this result transmitted reference range : 150 - 328 10*3/ ?L. The reference r pasquale was not used to interpret this result as normal/abnormal . MPV (test code = 10.8 fL 9.8-13.0 64713-7) NRBC/100 WBC (test See_Comment [Automat ed code = 9812978870) message] The system which generated this result transmitted reference range : 0.0 - 10.0 /100 WBCs. The refer ence range was not u sed to interpret th is result as normal/abnormal . NRBC x10^3 (test code <0.01 See_Comment [Auto mated = 1490916731) message] The s ystem which generated this result transmitted reference range : 10*3/?L. The reference range was not used to interpret this result as normal/abnormal . GRAN MAT (NEUT) % 63.5 % (test code = 770-8) IMM GRAN % (test code 0.40 % = 0578158709) LYMPH % (test code = 23.9 % 736-9) MONO % (test code = 6.7 % 5905-5) EOS % (test code = 4.3 % 713-8) BASO % (test code = 1.2 % 706-2) GRAN MAT x10^3(ANC) 4.27 10*3/uL 1.99-6.95 (test code = 8276575225) IMM GRAN x10^3 (test 0.03 10*3/uL 0.00-0.06 code = 1328670211) LYMPH x10^3 (test code 1.61 10*3/uL 1.09-3.23 = 731-0) MONO x10^3 (test code 0.45 10*3/uL 0.36-1.02 = 742-7) EOS x10^3 (test code = 0.29 10*3/uL 0.06-0.53 711-2) BASO x10^3 (test code 0.08 10*3/uL 0.01-0.09 = 704-7) Lab Interpretation Abnormal (test code = 42202-0) [facility], [id number] 18:56:00 Test Item Value Reference Range Interpretation [...] 3267) Lab Interpretation (test code Abnormal = 01392-7) [facility] ChildrenPO[facility] URINALYSIS, [id number] 18:56:00 Test Item Value Reference Range Interpretation [...] 3267) Lab Interpretation (test code Abnormal = 24599-6) [facility]- XR CHEST [id number] 16:22:00 Patient Name: JUAN C MONGE Unit No: [id number] EXAMS: CPT CODE: [id number] XR CHEST 1V 25421 EXAMINATION: - XR CHEST 1V. LOCATION: B2. HISTORY: S/P ICD. COMPARISON: None. TECHNIQUE: Single AP view of the chest was obtained. FINDINGS: The right lung apex is excluded from the yskpw-ne-njwh. The heart isnormal in size. Left AICD device is present. The lungs are clear. No acute osseous abnormality is id entified. IMPRESSION: The right lung apex is excluded from the ubitm-kl-amcf. No acute cardiopulmonary abnormality is identified. at 1622 Reported and signed by: Latanya Marshall MD CC: Tyrell Mckeon Technologist: JOSELYN Mathews, RT(R)Transcrpt Date/Tm/Trnsp: 06/19/2020 (1622) t.ANGELAR.PR7 Orig Print D/T: S: 06/19/2020 (1625) [facility]NAME: THAOJUAN C [address] PHYS: [place] [address] : 8AGE: 59 SEX: M LOC: Z.354 A PHONE #: [phone] EXAM DATE: 06/19/2020 STATUS: ADM IN FAX #: [phone] RADIOLOGY NO: PAGE 1 Signed ReportBASIC METABOLIC [id number] 13:17:00 Test Item Value Reference Range Interpretation [...] code = MG/DL 8.7-9.7 CA) Comments to Waitstaff Captain: NURSE WILL BRING SPECIMEN TO LABIs this a LINE draw? N [id number] 13:17:00 Test Item Value Reference Range Interpretation Comments MAGNESIUM (test code = MAG) MG/DL 1.6-2.3 Comments to Waitstaff Captain: NURSE WILL BRING SPECIMEN TO LABIs this a LINE draw? N BASIC METABOLIC [id number] 13:17:00 Test Item Value Reference Range Interpretation [...] 9.1 MG/DL 8.4-10.2 N CA) Comments to Waitstaff Captain: NURSE WILL BRING SPECIMEN TO LABIs this a LINE draw? N [id number] 13:17:00 Test Item Value Reference Range Interpretation Comments MAGNESIUM (test code = MAG) 2.2 MG/DL 1.6-2.3 N Comments to Waitstaff Captain: NURSE WILL BRING SPECIMEN TO LABIs this a LINE draw? N BASIC METABOLIC [id number] 13:16:00 Test Item Value Reference Range Interpretation [...] code = MG/DL 8.7-9.7 CA) Comments to Waitstaff Captain: NURSE WILL BRING SPECIMEN TO LABIs this a LINE draw? N [id number] 13:16:00 Test Item Value Reference Range Interpretation Comments MAGNESIUM (test code = MAG) MG/DL 1.6-2.3 Comments to Waitstaff Captain: NURSE WILL BRING SPECIMEN TO LABIs this a LINE draw? N BASIC METABOLIC [id number] 13:14:00 Test Item Value Reference Range Interpretation [...] code = CA) MG/DL 8.7-9.7 Comments to Waitstaff Captain: NURSE WILL BRING SPECIMEN TO LABIs this a LINE draw? N [id number] 13:14:00 Test Item Value Reference Range Interpretation Comments MAGNESIUM (test code = MAG) MG/DL 1.6-2.3 Comments to Waitstaff Captain: NURSE WILL BRING SPECIMEN TO LABIs this a LINE draw? N BASIC METABOLIC [id number] 13:13:00 Test Item Value Reference Range Interpretation [...] code = CA) MG/DL 8.7-9.7 Comments to Waitstaff Captain: NURSE WILL BRING SPECIMEN TO LABIs this a LINE draw? N [id number] 13:13:00 Test Item Value Reference Range Interpretation Comments MAGNESIUM (test code = MAG) MG/DL 1.6-2.3 Comments to Waitstaff Captain: NURSE WILL BRING SPECIMEN TO LABIs this a LINE draw? N PROTHROMBIN [id number] 13:08:00 Test Item Value Reference Range Interpretation [...] myocar dial infarction. 2.0 - 3.0 3. [employer] Attendant al prosthesis hear t valves, recurre nt systemic emboli sm. 3.0 - 4.5 Comments to Waitstaff Captain: NURSE WILL BRING SPECIMEN TO LABPTT ACTIVATED 2020-06-19 13:08:00 Test Item Value Reference Range Interpretation Comments PTT ACTIVATED (test code = APTT) 30.8 SECONDS 25.1-36.5 N Comments to Waitstaff Captain: NURSE WILL BRING SPECIMEN TO LABCBC W/AUTO [...] 0.00 K/mm3 0.0-0.1 N NRBC#) Comments to Waitstaff Captain: NURSE WILL BRING SPECIMEN TO LABIs this a LINE draw? N COVID 19 Asymptomatic IH [id number] 12:14:00 Test Item Value Reference Range Interpretation [...] Date/Time Note Provider Source 2023-03-20 00:11:00-00:00 [facility] ([facility]) Hospitalist Discharge Summary REPORT#:[id number] REPORT STATUS: Signed DATE:03/20/23 TIME: 0011 PATIENT: JUAN C MONGE UN[facility] #: [id number] [facility]GE[facility] 62 SEX: M ATTEND: Rudy Xiao ADM AUTHOR: Rudy Xiao MD * ALL edits or amendments must be made on the [employer]/computer document * General Information Discharge date: 03/19/23 [...] cigarette smoking or nicotine patches. 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 nicotine patch PATIENT [...] cigarette smoking or nicotine patches. 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 nicotine patch Code [...] DAILY. Comments: #60 [facility] Start taking the following new medications: [...] normal inspection, painless ran ge of motion Neuro/HOPPER FEEDER: alert, normal speech Skin: dry Psychiatry: abnl [...] < 18.5 BMI status/follow-up: nml BMI,no counselor dormitory needed Electronically Signed by Rudy Xiao MD on 3 at 0016 RPT #:[id number] END OF REPORT 2023-03-19 12:19:00-00:[address] [facility] [place] [place] ([facility]) Cardiology Progress Note REPORT#:[id number] REPORT STATUS: Signed DATE:03/19/23 TIME: 1219 PATIENT: JUAN C MONGE UNIT #: [id number] ROOM/BED: [address] : 56 AGE: 62 SEX: M ATTEND: Rudy Xiao ADM AUTHOR: Tyrell Mckeon MD * ALL edits or amendments must be made on the [employer]/computer document * Subjective Chief complaint: Dyspnea Patient [...] no edema Musculoskeletal: full range of motion Neuro/HOPPER FEEDER: alert, oriented X 3, CN II-XII intact [...] with Dr. Tenorio as outpatient. at [address] [facility] #:[id number] END OF REPORT 2023-03-18 15:47:00-00:00 [id number] [address] PATIENT NAME: JUAN C MONGE ADMIT DATE: 03/15/23 ACCOUNT NO: [id number] ROOM NO: [facility] AGE: 62 REPORT TYPE: ECHOCARDIOGRAM SEX: M ADMITTING PHYSICIAN:Rudy Xiao MD ATTENDING PHYSICIAN:Rudy Xiao MD *[facility]* [address] [place] [address] Transthoracic Echocardiogram Patient: Juan C Monge Study Date: 03/18/2023 BP: 122 / 66 Location: [facility] URN: [id number] 222 : 1960 Age: 62 Height: 70 in / 177.8 cm Gender: M Weight: 149 .7 lb / 68 kg BMI/BSA: 21.5 kg/m 2 / 1.83 m 2 *Ordering Physician: * Omid Tenorio MD *Interpreting Physician: * Omid Tenorio MD *Elevator Conductor: Vick Galdamez Indications: CAD. Study data: Transthoracic echocardiogram. Proced ure: Transthoracic echocardiography was performed. Images were obta ined using a [employer] cardiac ultrasound machine. Image quality was adequate. [...] IVS, ES 1.4 cm --------- PATIENT NAME: JUNA C MONGE 222 Right ventricle Value Ref [...] 2.46 m/sec --------- Pulmonic valve Value Ref AL v, ED 0.94 m/sec --------- Aortic root [...] NAME: JUAN C MONGE 222 2023-03-18 10:16:00-00:[address] [facility] [place] [place] ([facility] Hospitalist Progress Note REPORT#:[id number] REPORT STATUS: Signed DATE:03/18/23 TIME: 1016 PATIENT: JUAN C MONGE UNIT #: [id number] [facility] AGE: 62 SEX: M ATTEND: Rudy Xiao ADM AUTHOR: Jenny Meyers MD R2 * ALL edits or amendments must be made on the [employer]/computer document * Jenny Meyers 03/18/23 1016: Subjective [...] normal inspection, painless ran ge of motion Neuro/HOPPER FEEDER: alert, normal speech Skin: dry Psychiatry: abnl [...] cigarette smoking or nicotine patches. 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 nicotine patch Code [...] < 18.5 BMI status/follow-up: nml BMI,no counselor dormitory needed Attestations Attestation needed: teaching physician Rudy Xiao 03/18/23 1743: Attestations Teaching Physician Attestation F/U visit w/ resident: I saw the patient with the resident and . . . agree with the resident's findings and plan. echo unremarkable await aicd interrogation dvt ppx: on xarelto at 1023 Electronically Signed by Rudy Xiao MD on 3 at 1743 RPT #:[id number] END OF REPORT 2023-03-18 06:54:00-00:[address] [facility] [place] [place] ([facility]) Cardiology Progress Note REPORT#:[id number] REPORT STATUS: Signed DATE:03/18/23 TIME: 653 PATIENT: JUAN C MONGE UNIT #: [id number] ROOM/BED: [address] : 56 AGE: 62 SEX: M ATTEND: Rudy Xiao ADM AUTHOR: Tyrell Mckeon MD * ALL edits or amendments must be made on the [employer]/computer document * Subjective Chief complaint: Dyspnea Patient [...] no edema Musculoskeletal: full range of motion Neuro/HOPPER FEEDER: alert, oriented X 3, CN II-XII intact [...] Oxygen support as needed. at 1220 RPT #:[id number] END OF REPORT 2023-03-17 13:48:00-00:[address] [facility] [place] [place] ([facility] Hospitalist Progress Note REPORT#:[id number] REPORT STATUS: Signed DATE:03/17/23 TIME: 1347 PATIENT: JUAN C MONGE UNIT #: [id number] ROOM/BED: [address] : 56 AGE: 62 SEX: M ATTEND: Rudy Xiao ADM AUTHOR: Jenny Meyers MD R2 * ALL edits or amendments must be made on the [employer] document * Jenny Meyers 03/17/23 1348: Subjective [...] normal inspection, painless ran ge of motion Neuro/HOPPER FEEDER: alert, oriented X 3, normal speech Skin: [...] cigarette smoking or nicotine patches. 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 nicotine patch Code [...] < 18.5 BMI status/follow-up: nml BMI,no counselor dormitory needed Attestations Attestation needed: teaching physician Rudy Xiao 03/17/23 1405: Attestations Teaching Physician Attestation F/U visit w/ resident: I saw the patient with the resident and . . . agree with the resident's findings and plan. await echo and aicd interrogation cont angelina has home o2 at 1511 Electronically Signed by Rudy Xiao MD on 3 at 0024 RPT #:[id number] END OF REPORT 2023-03-17 06:38:00-00:[address] [facility] [place] [place] ([facility]) Cardiology Progress Note REPORT#:[id number] REPORT STATUS: Signed DATE:03/17/23 TIME: 637 PATIENT: JUAN C MONGE UNIT #: [id number] [facility] AGE: 62 SEX: M ATTEND: Rudy Xiao ADM AUTHOR: Tyrell Mckeon MD * ALL edits or amendments must be made on the [employer]/computer document * Subjective Chief complaint: Dyspnea Patient [...] no edema Musculoskeletal: full range of motion Neuro/HOPPER FEEDER: alert, oriented X 3, CN II-XII intact [...] (Auto) (14 - 44 %) 3.3 L [place] % (Auto) (4 - 13 %) 3.9 L Eos % (Auto) (0 - 6 %) 0.0 Baso % (Auto) (0 - 2 %) 0.1 Neut # (Auto) (2.0 - 7.6 K/mm3) 9.37 H Lymph # (Auto) (1.0 - 3.8 K/mm3) 0.33 L [place] # (Auto) (0.1 - 0.8 K/mm3) 0.40 [...] Oxygen support as needed. at 1220 RPT #:[id number] END OF REPORT 2023-03-16 20:57:00-00:00 [facility] Cardiology Progress Note REPORT#:[id number] REPORT STATUS: Signed DATE:03/16/23 TIME: 2056 PATIENT: JUAN C MONGE UNIT #: [id number] ROOM/BED: [address] : 56 AGE: 62 SEX: M ATTEND: Rudy Xiao ADM AUTHOR: Tyrell Mckeon MD * ALL edits or amendments must be made on the [employer] document * Subjective Chief complaint: Dyspnea Patient [...] no edema Musculoskeletal: full range of motion Neuro/HOPPER FEEDER: alert, oriented X 3, CN II-XII intact [...] (Auto) (14 - 44 %) 3.3 L [place] % (Auto) (4 - 13 %) 3.9 L Eos % (Auto) (0 - 6 %) 0.0 Baso % (Auto) (0 - 2 %) 0.1 Neut # (Auto) (2.0 - 7.6 K/mm3) 9.37 H Lymph # (Auto) (1.0 - 3.8 K/mm3) 0.33 L [place] # (Auto) (0.1 - 0.8 K/mm3) 0.40 [...] Oxygen support as needed. at 0637 RPT #:[id number] END OF REPORT 2023-03-16 08:07:00-00:[address] [facility] [place] [place] ([facility]) Hospitalist Progress Note REPORT#:[id number] REPORT STATUS: Signed DATE:03/16/23 TIME: 0807 PATIENT: JUAN C MONGE UNIT #: [id number] ROOM/BED: 347-A : 56 AGE: 62 SEX: M ATTEND: Rudy Xiao ADM AUTHOR: Jenny Meyers MD R2 * ALL edits or amendments must be made on the el [employer]/computer document * Jenny Meyers 03/16/23 0807: Subjective [...] normal inspection, painless ran ge of motion Neuro/HOPPER FEEDER: alert, oriented X 3, normal speech Skin: [...] cigarette smoking or nicotine patches. 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 nicotine patch Code [...] < 18.5 BMI status/follow-up: nml BMI,no counselor dormitory needed Attestations Attestation needed: teaching physician Rudy Xiao 03/16/232006: Attestations Teaching Physician Attestation F/U visit w/ resident: I saw the patient with the resident and . . . agree with the resident's findings and plan. echo cards folloing aicd interrogation cont angelina has home o2 at 1416 Electronically Signed by Rudy Xiao MD on 3 at 2007 RPT #:[id number] END OF REPORT 2023-03-15 20:17:00-00:00 [id number] [place] [address] PATIENT NAME: JUAN C MONGE ADMIT DATE: 03/15/23 ACCOUNT NO: [id number] ROOM NO: Z.347 AGE: 62 REPORT TYPE: ELECTROCARDIOGRAM SEX: M ADMITTING PHYSICIAN:Rudy Xiao MD ATTENDING PHYSICIAN:Rudy Xiao MD Order: [id number] Test Reason : CAD Test Date/Time Stamp: [...] NAME: JUAN C MONGE 22 2023-03-15 16:03:00-00:00 [id number] [place] [id number] PATIENT NAME: JUAN C MONGE ADMIT DATE: 03/15/23 ACCOUNT NO: [id number] ROOM NO: Z.347 AGE: 62 REPORT TYPE: [...] who presented to the Emergency Room at [facility] in [facility] with complaints of increasing shortness of [...] Date Transcribed: 03/15/2023 16:59:18 GSP/REQ Receipt ID: [id number] Authenticated by Tyrell Mckeon MD On 03/15/20 06:28:21 PM at 0628 PATIENT NAME: JUAN C MONGE 2023-03-15 10:52:00-00:[address] [facility] [place] ([facility]) [facility] Physical REPORT#:[id number] REPORT STATUS: Signed DATE:03/15/23 TIME: 1051 PATIENT: JUAN C MONGE UNIT #: [id number] [facility] AGE: 62 SEX: M ATTEND: Rudy Xiao ADM AUTHOR: Clare Velazquez * ALL edits or amendments must be made on the [employer] document * Clare Velazquez 03/15/23 1052: History [...] SULFATE) NEB 03/15 0633 0642 Blood Formation,Coagulation Sig/Iemr Start time Last Medication Dose Route Stop [...] no muscle sp asm, no paraspinal tenderness Neuro/HOPPER FEEDER: alert, oriented X 3, normal speech, n [...] (Auto) (1.0 - 3.8 K/mm3) 0.51 L [place] # (Auto) (0.1 - 0.8 K/mm3) 0.10 [...] alert and oriented x3 #Tobacco abuse counselor dormitory on cessation. start nicotine patch VTE ppx: [...] BMI: 21.6 BMI status/follow-up: nml BMI,no counselor dormitory needed Rudy Xiao 03/15/23 2233: Attestations Teaching [...] Clare Velazquez on 02/18 04/10 at 2343 [facility] #:[id number] END OF REPORT 2023-03-15 07:02:00-00:00 [facility] ([facility]) EMERGENCY PROVIDER REPORT REPORT#:[id number] REPORT STATUS: Signed DATE:03/15/23 TIME: 07 PATIENT: JUAN C MONGE UNIT #: [id number] ROOM/BED: [address] AGE: 62 SEX: M PCP PHYS: Undefined Provider SERVICE AUTHOR: Royce Davison MD LOCATION: [facility] * ALL edits or amendments must be made on the [employer]/computer document * See Addendum HPI-General Illness Free Text HPI Notes Free Text HPI Notes 62-year-old female past medical history COPD, hypertension, hyperlipidemia, A- [facility] Compla ining of shortness of breath [...] (Auto) (1.0 - 3.8 K/mm3) 0.51 L [place] # (Auto) (0.1 - 0.8 K/mm3) 0.10 [...] Royce Davison MD on at 1918 RPT #:[id number] END OF REPORT 2020-06-20 06:17:00-00:[address] [facility] [place] [place] ([facility]) Cardiology Progress Note REPORT#:[id number] REPORT STATUS: Signed DATE:06/20/20 TIME: 06 PATIENT: JUAN C MONGE UNIT #: [id number] ROOM/BED: 354-A : 58 AGE: 59 SEX: M ATTEND: Geoffrey Mckeon MD ADM AUTHOR: Tyrell Mckeon MD * ALL edits or amendments must be made on the [employer]/computer document * Subjective Chief Complaint: AICD Patient [...] Potassium Chloride 10 MEQ BID PO Ipratropium [place] 0.5 MG RTQ6H INH Cefazolin Sodium 1,000 [...] no edema Musculoskeletal: full range of motion Neuro/HOPPER FEEDER: alert, oriented X 3, CN II-XII intact [...] % (Auto) (14 - 44 %) 27.8 [place] % (Auto) (4 - 13 %) 8.6 Eos % (Auto) (0 - 6 %) 1.7 Baso % (Auto) (0 - 2 %) 0.6 Neut # (Auto) (2.0 - 7.6 K/mm3) 3.99 Lymph # (Auto) (1.0 - 3.8 K/mm3) 1.82 [place]ria # (Auto) (0.1 - 0.8 K/mm3) 0.56 [...] Report Impression - Status: SIGNED Entered: 06/19/2020 5633 IMPRESSION: The right lung apex is excluded from the field-o f-view. No acute cardiopulmonary abnormality is identified. Impression By: [email or web address] - Latanya Marshall MD Diagnosis, Assessment Plan Free Text DxA P Notes Free Text DxA P Notes: IMP: Chronic systolic heart failure s/p [employer] AICD - single lead PLAN: AICD interrogation d/c home if stable. at 0818 [facility] #:[id number] END OF REPORT 2020-06-19 16:03:00-00:00 [id number] [facility] [address] [place] [address] PATIENT NAME: JUAN C MONGE ADMIT DATE: 06/19/20 ACCOUNT NO: [id number] ROOM NO: [facility] AGE: 59 REPORT TYPE: OPERATIVE REPORT SEX: M ADMITTING PHYSICIAN:Tyrell Mckeon MD ATTENDING PHYSICIAN:Tyrell Mckeon MD OPERATION DATE: 06/19/2020 PROCEDURES: 1. Non-thoracotomy single lead AICD placement. 2. Defibrillation threshold testing. PREOPERATIVE DIAGNOSES: 1. 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 2. [place] [employer] class III congesti ve heart failure. POSTOPERATIVE DIAGNOSES: 1. 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 2. [place] [employer] class III congesti ve heart failure. SURGEON: Tyrell Mckeon MD STRAIGHT KNIFE CUTTER MACHINE: None. ANESTHESIA: Local anesthesia with 1% lidocaine [...] was flushed with antibiotic- containing solution. A 7-Korean sheath was advanced over the wire and [...] DATA: 1. Pulse generator: [employer] model [id number], s erial #[id number]. 2. Right ventricular lead; [employer] model 7120Q/ 58, serial number [id number]. STIMULATION THRESHOLD DATA: Right ventricle R waves [...] Tyrell Mckeon MD WT: OP:KINGS/LUIS ANGEL/ALEX Conf#: [id number]/DID#: [id number] cc: Omid Tenorio MD Authenticated by Tyrell Mckeon MD On 06/23/20 06:02:06 AM at 0602 PATIENT NAME: JUAN C MONGE 19 2020-06-19 13:14:00-00:00 [id number] [place] [address] PATIENT NAME: JUAN C MONGE ADMIT DATE: 06/19/20 ACCOUNT NO: [id number] ROOM NO: Z.354 AGE: 59 REPORT TYPE: ELECTROCARDIOGRAM SEX: M ADMITTING PHYSICIAN:Tyrell Mckeon MD ATTENDING PHYSICIAN:Tyrell Mckeon MD Order: [id number] Test Reason : CHF Test Date/Time Stamp: [...]
[2023-04-03 04:37] LABS: Absolute Lymphocytes (CBC) 0.6 K/uL (0.7-4.9); Hematocrit 40.2 % (39.6-49.0); Lymphocytes % 6.9 % (15.3-44.8); MCV 100.2 fL (80-100); MPV 8.3 fL (7.6-11.3); RBC Red Blood Cell Count 4.01 M/uL (4.33-5.43)
[2023-04-03] MEDS ORDERED: IPRATROPIUM BROM 0.5MG/2.5ML ONE (04:39)
[2023-04-03] MEDS ORDERED: ALBUTEROL 2.5 MG/3 ML NEB SOL ONE (04:39)
--- NOTE | 2023-04-03 04:54 | EDPHYS ---
Physician Documentation [facility] Name: Juan C Monge Age: 62 yrs Sex: Male : 1960 Arrival Date: 04/03/2023 Time: 04:11 Bed 14 Private MD: ED Physician Charlie Valencia HPI: 04/03 04:46 This 62 yrs old Male presents to ER via Ambulatory with complaints of Shortness Of rt Breath. 04:46 Patient with history of COPD presents to the ED with dyspnea. Of note, patient was seen rt in the ED yesterday, was admitted to the hospital but asked to be discharged before he got a bed upstairs. The patient's breathing worsened overnight prompting come to the ED for further evaluation. Reports chest tightness, denies other acute complaints at this time. Symptoms are severe in severity, no other aggravating alleviating factors.. Historical: - Home Meds: 04:21 potassium chloride 10 mEq Oral cpER 1 cap 2 times per day [Active]; albuterol sulfate vc1 2.5 mg /3 mL (0.083 %) Inhl Solution for Nebulization as needed [Active]; aspirin 81 mg Oral chew 1 tab once daily [Active]; omeprazole 40 mg Oral cpDR 1 cap 2 times per day [Active]; fluticasone propionate 250 mcg/actuation inhalation Blister, With Inhalation Device 2 inhalations 2 times per day [Active]; atorvastatin 40 mg Oral tablet every day at bedtime [Active]; benazepril 10 mg Oral tab 1 tab once daily [Active]; buspirone 30 mg Oral tab 1 tab 2 times per day [Active]; Coreg 25 mg Oral tab 1 tab 2 times per day [Active]; hydrochlorothiazide 25 mg Oral tab 1 tab once daily [Active]; ipratropium bromide inhalation 4 times per day [Active]; memantine 5 mg Oral tablet daily [Active]; methylprednisolone 4 mg Oral Tablet, Dose Pack per package directions [Active]; - PMHx: 04:21 Atrial Fib; COPD; CVA; Hyperlipidemia; Hypertension; Myocardial infarction; skull vc1 fracture; - PSHx: 04:21 Appendectomy; defibrillator; vc1 - Immunization history:: Client reports receiving the 2nd dose of the Covid vaccine. - Social history:: Smoking status: Patient reports the use of cigarette tobacco products, smokes one pack cigarettes per day. - Family history:: not pertinent. ROS: 04:46 Constitutional: Negative for fever, chills, and weight loss, Abdomen/GI: Negative for rt abdominal pain, nausea, vomiting, diarrhea, and constipation, MS/Extremity: Negative for injury and deformity, Skin: Negative for injury, rash, and discoloration, Neuro: Negative for headache, weakness, numbness, tingling, and seizure, Psych: Negative for depression, anxiety, suicide ideation, homicidal ideation, and hallucinations. 04:46 Cardiovascular: Positive for chest pain, Negative for edema. 04:46 Respiratory: Positive for cough, shortness of breath. Exam: 04:46 Chest/axilla: Normal chest wall appearance and motion. Nontender with no deformity. rt No lesions are appreciated. Cardiovascular: Regular rate and rhythm with a normal S1 and S2. No gallops, murmurs, or rubs. Normal PMI, no JVD. No pulse deficits. Abdomen/GI: Soft, non-tender, with normal bowel sounds. No distension or tympany. No guarding or rebound. No evidence of tenderness throughout. MS/ Extremity: Pulses equal, no cyanosis. Neurovascular intact. Full, normal range of motion. Neuro: Awake and alert, GCS 15, oriented to person, place, time, and situation. Cranial nerves II-XII grossly intact. Motor strength 5/5 in all extremities. Sensory grossly intact. Cerebellar exam normal. Normal gait. 04:46 Constitutional: The patient appears in obvious distress, severely distressed, obviously ill. 04:46 ECG was reviewed by the Attending Physician. 04:46 Respiratory: Decreased breath sounds with severe respiratory distress. 04:46 Skin: Cyanotic. Vital Signs: 04:15 Pulse Ox 55% on R/A; vc1 04:17 BP 166 / 91; Pulse 93; Resp 31; Temp 97.9; Pulse Ox 100% on 15 lpm Non-rebreather mask; vc1 Weight 63.5 kg; Height 5 ft. 10 in. ; Pain 0/10; 05:00 BP 96 / 65; Pulse 93; Resp 20; Pulse Ox 100% on BiPAP; vc1 04:17 Body Mass Index 20.09 (63.50 kg, 177.8 cm) vc1 04:17 Pain Scale: Adult vc1 04:15 RT paged for bipap, placed on non rebreather vc1 MDM: 04:20 Patient medically screened. rt 04:53 Differential diagnosis: Pneumonia, pneumothorax, COPD, stage. Data reviewed: vital rt signs, nurses notes, lab test result(s), EKG, radiologic studies. Consideration of Admission/Observation Patient was admitted/placed on observation. Management of patient was discussed with the following: Hospitalist: Agrees with. I considered the following discharge prescriptions or medication management in the emergency department Medications were administered in the Emergency Department. See MAR. Test considered but Not performed: CT: Symptoms not consistent with PE, CT angiogram not indicated. Care significantly affected by the following chronic conditions: Congestive Heart Failure, Chronic Obstructive Pulmonary Disease. Counseling: I had a detailed discussion with the patient and/or guardian regarding: the historical points, exam findings, and any diagnostic results supporting the discharge/admit diagnosis, lab results, radiology results, the need for further work-up and treatment in the hospital. Response to treatment: the patient's symptoms have markedly improved after treatment. 04/03 04:20 Order name: Basic Metabolic Panel rt 04/03 04:20 Order name: CBC with Diff rt 04/03 04:20 Order name: LFT's rt 04/03 04:20 Order name: Magnesium rt 04/03 04:20 Order name: Troponin HS rt 04/03 04:20 Order name: ABG rt 04/03 04:20 Order name: XRAY Chest (1 view) rt 04/03 04:20 Order name: BIPAP rt 04/03 04:20 Order name: EKG; Complete Time: 04:21 rt 04/03 04:20 Order name: Cardiac monitoring; Complete Time: 04:32 rt 04/03 04:20 Order name: EKG - Nurse/Tech; Complete Time: 04:32 rt 04/03 04:20 Order name: IV Saline Lock; Complete Time: 04:32 rt 04/03 04:20 Order name: Labs collected and sent; Complete Time: 04:32 rt 04/03 04:20 Order name: O2 Per Protocol; Complete Time: 04:32 rt 04/03 04:20 Order name: O2 Sat Monitoring; Complete Time: 04:32 rt EC:46 Rate is 85 beats/min. Rhythm is regular, Normal Sinus Rhythm with No ectopy. QRS Pope rt is Normal. OH interval is normal. QRS interval is normal. QT interval is normal. No Q waves. T waves are Normal. No ST changes noted. Interpreted by me. Administered Medications: 04:45 Drug: DuoNeb Nebulize (3:1) (2.5 mg - 0.5 mg) 3 ml Route: Nebulizer; vc1 05:29 Follow up: Response: No adverse reaction; Marked relief of symptoms vc1 Disposition: 04:53 Critical Care:. rt Disposition Summary: 04/03/23 04:53 Hospitalization Ordered Hospitalization Status: Inpatient Admission rt Provider: Dameon Cedillo rt Location: Intensive Care Unit rt Condition: Critical rt Problem: an acute exacerbation rt Symptoms: have improved rt Bed/Room Type: Standard rt Room Assignment: 6-(04/03/23 05:12) mw Diagnosis - COPD/ Chronic obstructive pulmonary disease, unspecified rt - Hypercarbic hypoxemic respiratory failure rt Forms: - Medication Reconciliation Form rt - SBAR form rt Critical care time excluding procedures: 04:53 Critical care time: Bedside Care: 30 minutes, Consultation: 10 minutes. Total time: 40 rt minutes Signatures: Dispatcher [employer] EDArgelia Rice RN RN mw Mikayla Nunez RN RN vc1 Charlie Valencia MD MD rt Corrections: (The following items were deleted from the chart) 05:12 04:53 rt mw
--- NOTE | 2023-04-03 04:54 | ER ---
Nurse's Notes [facility] Name: Juan C Monge Age: 62 yrs Sex: Male : 1960 Arrival Date: 04/03/2023 Time: 04:11 Bed 14 Private MD: Diagnosis: COPD/ Chronic obstructive pulmonary disease, unspecified;Hypercarbic hypoxemic respiratory failure Presentation: 04/03 04:15 Initial Sepsis Screen: Does the patient meet any 2 criteria? RR > 20 per min. HR > 90 vc1 bpm. Yes Does the patient have a suspected source of infection? No. Patient's initial sepsis screen is negative. Risk Assessment: Do you want to hurt yourself or someone else? Patient reports no desire to harm self or others. Onset of symptoms was April 03, 2023 at 04:21. 04:15 Acuity: JESSI 2 vc1 04:17 Chief complaint: Patient states: "I can't breath it is my COPD I need oxygen". vc1 Coronavirus screen: Vaccine status: Patient reports receiving the 2nd dose of the covid vaccine. Plus boosters; Rx Network Client denies travel out of the [place] in the last 14 days. At this time, the client does not indicate any symptoms associated with coronavirus-19. Ebola Screen: Patient negative for fever greater than or equal to 101.5 degrees Fahrenheit, and additional compatible Ebola Virus Disease symptoms Patient denies exposure to infectious person. Patient denies travel to an Ebola-affected area in the 21 days before illness onset. No symptoms or risks identified at this time. 04:17 Method Of Arrival: Ambulatory vc1 Triage Assessment: 04:25 General: Appears distressed, Behavior is anxious. Pain: Denies pain. Pain: Denies pain. vc1 EENT: No deficits noted. No signs and/or symptoms were reported regarding the EENT system. Neuro: Level of Consciousness is awake, obeys commands, Oriented to person, place, time, situation, Appropriate for age. Cardiovascular: Patient's skin is warm and dry. Respiratory: Reports shortness of breath at rest labored breathing Airway is patent Respiratory effort is even, labored, Respiratory pattern is symmetrical, tachypnea Onset: The symptoms/episode began/occurred this morning, Respiratory: the patient has moderate shortness of breath. GI: No deficits noted. No signs and/or symptoms were reported involving the gastrointestinal system. : No deficits noted. No signs and/or symptoms were reported regarding the genitourinary system. Derm: No deficits noted. No signs and/or symptoms reported regarding the dermatologic system. Musculoskeletal: No deficits noted. No signs and/or symptoms reported regarding the musculoskeletal system. Historical: - Home Meds: 04:21 potassium chloride 10 mEq Oral cpER 1 cap 2 times per day [Active]; albuterol sulfate vc1 2.5 mg /3 mL (0.083 %) Inhl Solution for Nebulization as needed [Active]; aspirin 81 mg Oral chew 1 tab once daily [Active]; omeprazole 40 mg Oral cpDR 1 cap 2 times per day [Active]; fluticasone propionate 250 mcg/actuation inhalation Blister, With Inhalation Device 2 inhalations 2 times per day [Active]; atorvastatin 40 mg Oral tablet every day at bedtime [Active]; benazepril 10 mg Oral tab 1 tab once daily [Active]; buspirone 30 mg Oral tab 1 tab 2 times per day [Active]; Coreg 25 mg Oral tab 1 tab 2 times per day [Active]; hydrochlorothiazide 25 mg Oral tab 1 tab once daily [Active]; ipratropium bromide inhalation 4 times per day [Active]; memantine 5 mg Oral tablet daily [Active]; methylprednisolone 4 mg Oral Tablet, Dose Pack per package directions [Active]; - PMHx: 04:21 Atrial Fib; COPD; CVA; Hyperlipidemia; Hypertension; Myocardial infarction; skull vc1 fracture; - PSHx: 04:21 Appendectomy; defibrillator; vc1 - Immunization history:: Client reports receiving the 2nd dose of the Covid vaccine. - Social history:: Smoking status: Patient reports the use of cigarette tobacco products, smokes one pack cigarettes per day. - Family history:: not pertinent. Screenin:27 [facility] ED Fall Risk Assessment (Adult) History of falling in the last 3 months, vc1 including since admission No falls in past 3 months (0 pts) Confusion or Disorientation No (0 pts) Intoxicated or Sedated No (0 pts) Impaired Gait No (0 pts) Mobility Assist Device Used No (0 pt) Altered Elimination No (0 pt) Score/Fall Risk Level 0 - 2 = Low Risk Oriented to surroundings, Maintained a safe environment, Educated pt \\T\\ family on fall prevention, incl call for assistance when getting out of bed. Abuse screen: Denies threats or abuse. Nutritional screening: No deficits noted. Tuberculosis screening: No symptoms or risk factors identified. Assessment: 05:00 Reassessment: Patient and/or family updated on plan of care and expected duration. Pain vc1 level reassessed. Patient states symptoms have improved. Cardiovascular: Rhythm is sinus rhythm. Respiratory: Airway is patent Respiratory effort is even, labored, Respiratory pattern is symmetrical, tachypnea Breath sounds with wheezes. 05:26 Reassessment: Attempted to call ICU to give report, nurse giving another pt a bath, vc1 will call back. Vital Signs: 04:15 Pulse Ox 55% on R/A; vc1 04:17 BP 166 / 91; Pulse 93; Resp 31; Temp 97.9; Pulse Ox 100% on 15 lpm Non-rebreather mask; vc1 Weight 63.5 kg; Height 5 ft. 10 in. ; Pain 0/10; 05:00 BP 96 / 65; Pulse 93; Resp 20; Pulse Ox 100% on BiPAP; vc1 04:17 Body Mass Index 20.09 (63.50 kg, 177.8 cm) vc1 04:17 Pain Scale: Adult vc1 04:15 RT paged for bipap, placed on non rebreather vc1 ED Course: 04:17 Patient arrived in ED. vc1 04:18 Charlie Valencia MD is Attending Physician. rt 04:21 Triage completed. vc1 04:27 Arm band placed on left wrist. vc1 04:27 Patient has correct armband on for positive identification. Bed in low position. Call vc1 light in reach. Side rails up X2. Client placed on continuous cardiac and pulse oximetry monitoring. NIBP monitoring applied. 04:32 Basic Metabolic Panel Sent. vc1 04:32 CBC with Diff Sent. vc1 04:32 LFT's Sent. vc1 04:32 Magnesium Sent. vc1 04:32 Troponin HS Sent. vc1 04:32 Inserted saline lock: 22 gauge in left forearm, using aseptic technique. Blood kd3 collected. Missed attempt(s): 22 gauge in right antecubital area. 04:52 Mikayla Nunez RN is Primary Nurse. vc1 04:52 Dameon Cedillo MD is Hospitalizing Provider. rt 05:38 No provider procedures requiring assistance completed. Patient admitted, IV remains in vc1 place. 05:40 Provided Education on: Need for bipap. vc1 Administered Medications: 04:45 Drug: DuoNeb Nebulize (3:1) (2.5 mg - 0.5 mg) 3 ml Route: Nebulizer; vc1 05:29 Follow up: Response: No adverse reaction; Marked relief of symptoms vc1 Medication: 04:27 VIS not applicable for this client. vc1 Outcome: 04:53 Decision to Hospitalize by Provider. rt 05:39 Admitted to ICU accompanied by nurse, accompanied by tech, via stretcher, room -6, with vc1 oxygen, on monitor, with chart, Report called to SERA Abraham 05:39 Condition: improved 05:39 Instructed on the need for admit. 05:58 Patient left the ED. vc1 Signatures: Genet Mcdowell RN RN kd3 Mikayla Nunez RN RN vc1 Charlie Valencia MD MD rt
[2023-04-03 04:56] LABS: Albumin 3.4 g/dL (3.4-5.0); Bilirubin Direct 0.2 mg/dL (0-0.2); Bilirubin Indirect, Calculated 0.3 mg/dL (0.2-0.8); Bilirubin Total 0.5 mg/dL (0.2-1.0); Potassium 3.9 mEq/L (3.5-5.1); Troponin High Sensitivity 5.6 pg/mL (<58.9)
[2023-04-03] MEDS ORDERED: ONDANSETRON 4 MG/2 ML VIAL IV PRN (05:03)
[2023-04-03] MEDS ORDERED: ACETAMINOPHEN 500 MG TAB PO PRN (05:03)
[2023-04-03] MEDS ORDERED: ALBUTEROL 2.5 MG/3 ML NEB SOL NEB PRN (05:03)
[2023-04-03] MEDS ORDERED: IPRATROPIUM BROM 0.5MG/2.5ML NEB PRN (05:03)
--- NOTE | 2023-04-03 05:06 | P.HP ---
Certification for Inpatient Patient admitted to: Inpatient With expected LOS: <2 Midnights Patient will require the following post-hospital care: None Practitioner: I am a practitioner with admitting privileges, knowledge of patient current condition, hospital course, and medical plan of care. Services: Services provided to patient in accordance with Admission requirements found in Title 42 Section 412.3 of the Code of Federal Regulations Patient History Date of Service: 04/03/23 Reason for admission: shortness of breath History of Present Illness: 62-year-old male with past medical history of tobacco use, CVA, COPD, chronic diastolic heart failure, chronic respiratory failure recently hospitalized for COPD exacerbation with hypoxia and hypercapnia presents to the Emergency room for hospital shortness of breath. He was admitted yesterday and requested to go home, so he could smoke cigarettes. He reports he has home oxygen but does not need it. He is being admitted for COPD exacerbation with acute hypoxia, hypercarbia. He reports running out of some of his inhalers, not nebulizer malfunctioning. He reports symptoms worse with weather, allergies, shortness of breath worse with ambulation. Made better with medications and rest. He denies fever, chills, productive cough, chest pain, abdominal pain, edema. Allergies No Known Allergies Allergy (Unverified 04/03/23 05:07) Home Medications: Aspirin [Aspirin EC 81 MG] 81 mg PO DAILY #30 tablet. 03/14/18 Benazepril HCl [Lotensin*] 10 mg PO DAILY #30 tab 03/14/18 Albuterol Neb [Proventil 0.083% Neb Soln] 1 inh Q4H PRN 03/20/23 Atorvastatin Calcium [Lipitor] 40 mg PO BEDTIME 03/20/23 Carvedilol [Coreg] 1 tab PO BID 03/20/23 Ipratropium [place] 500 mcg Q6H 03/20/23 Memantine HCl [Namenda] 1 tab PO DAILY 03/20/23 Omeprazole [Prilosec] 1 tab PO DAILY 03/20/23 Potassium Chloride [Micro-K] 1 tab PO DAILY 03/20/23 Rivaroxaban [Xarelto*] 1 tab PO DAILY 03/20/23 Fluticasone/Umeclidin/Vilanter [Trelegy Ellipta 200-62.5-25] 1 each IH DAILY 30 Days #30 aero 03/21/23 Furosemide [Lasix*] 40 mg PO DAILY #30 tab 03/24/23 predniSONE [Prednisone*] 20 mg PO BID 5 Days #10 tab 04/02/23 - Past Medical/Surgical History Diabetic: No -: COPD -: paroxysmal A.Fib -: HTN -: Tobacco abuse -: CVA -: skull fx -: defibrilator -: Appendectomy - Family History Father -: Diabetes - Social History Alcohol use: No CD- Drugs: No Caffeine use: No Review of Systems 10-point ROS is otherwise unremarkable Physical Examination - Physical Exam General: Alert, Oriented x3, Mild distress HEENT: Atraumatic, Normocephalic, PERRLA Neck: Supple, 2+ carotid pulse no bruit, Other (Currently on BiPAP) Respiratory: Diminished Cardiovascular: Normal pulses Capillary refill: <2 Seconds Gastrointestinal: Normal bowel sounds, Soft and benign Musculoskeletal: No clubbing, No swelling Neurological: Normal speech, Normal strength at 5/5 x4 extr, Cranial nerves 3-12 intact - Studies Laboratory Data (last 24 hrs) 04/03/23 04:31: WBC 8.40, Hgb 13.0 L D, Hct 40.2, Plt Count 208 04/03/23 04:31: Sodium 135 L, Potassium 3.9, BUN 13, Creatinine 0.76, Glucose 158 H, Magnesium 2.0, Total Bilirubin 0.5, AST 4 L, ALT 24, Alkaline Phosphatase 78 Assessment and Plan - Plan Assessment plan acute hypoxic hypercarbic respiratory failure COPD exacerbation chronic diastolic heart failure History of CVA Tobacco use Essential hypertension DVT prophylaxis Assessment plan acute hypoxic hypercarbic respiratory failure secondary to COPD exacerbation BiPAP, repeat ABG in 4 hours Pulmonary consult, nebulizers, steroids, budesonide, IV azithromycin Patient will need inhalers, nebulizer prescription prior to discharge to prevent readmission chronic diastolic heart failure Trend BNP, telemetry Resume home diuretics History of CVA Resume home medications, fall precautions Essential hypertension Resume home medications Tobacco use Educated on tobacco cessation DVT prophylaxis . Diet cardiac Full code DVT Lovenox Discharge Plan: Home - Advance Directives Does patient have a Living Will: No Does patient have a Durable POA for Healthcare: No - Code Status/Comfort Care Code Status: Full Code Physician Review: Patient Assessed, Agree with Above Assessment and Plan Time Spent Managing Pts Care (In Minutes): 55
[2023-04-03] MEDS ORDERED: LORazepam 2 MG/ML VIAL IV ONE (05:58)
[2023-04-03] MEDS: METHYLPREDNISOLONE 125 MG INJ IV SCH ×3 (06:00→16:04)
[2023-04-03 06:12] VITALS: BMI 17.4
[2023-04-03] MEDS: CEFTRIAXONE 1,000 MG in NA CHLORIDE 0.9% 50 ML IVPB SCH (08:38)
[2023-04-03] MEDS ORDERED: AZITHROMYCIN 500 MG INJ IVPB ONE (08:44)
[2023-04-03] MEDS ORDERED: ALPRAZOLAM 0.25 MG TABLET PO SCH (09:00)
[2023-04-03] MEDS ORDERED: ENOXAPARIN 40 MG/0.4 ML SQ SCH (09:00)
[2023-04-03] MEDS ORDERED: AZITHROMYCIN IV 500 MG in NA CHLORIDE 0.9% 250 ML IVPB SCH (09:00)
--- NOTE | 2023-04-03 10:15 | P.CNS ---
Date of Consult: 04/03/23 Reason for Consult: Respiratory failure Chief Complaint: shortness of breath History of Present Illness: Kidney 62 years of age heavy smoker history of COPD admitted with hypoxic hypercapnic respiratory failure left AMA yesterday back again he is currently on BiPAP alert somewhat responsive received some Ativan due to his agitation smokes very heavily denies alcohol abuse Allergies No Known Allergies Allergy (Unverified 04/03/23 05:07) Home Medications: Aspirin [Aspirin EC 81 MG] 81 mg PO DAILY #30 tablet.dr 03/14/18 Benazepril HCl [Lotensin*] 10 mg PO DAILY #30 tab 03/14/18 Albuterol Neb [Proventil 0.083% Neb Soln] 1 inh Q4H PRN 03/20/23 Atorvastatin Calcium [Lipitor] 40 mg PO BEDTIME 03/20/23 Carvedilol [Coreg] 1 tab PO BID 03/20/23 Ipratropium [place] 500 mcg Q6H 03/20/23 Memantine HCl [Namenda] 1 tab PO DAILY 03/20/23 Omeprazole [Prilosec] 1 tab PO DAILY 03/20/23 Potassium Chloride [Micro-K] 1 tab PO DAILY 03/20/23 Rivaroxaban [Xarelto*] 1 tab PO DAILY 03/20/23 Fluticasone/Umeclidin/Vilanter [Trelegy Ellipta 200-62.5-25] 1 each IH DAILY 30 Days #30 aero 03/21/23 Furosemide [Lasix*] 40 mg PO DAILY #30 tab 03/24/23 predniSONE [Prednisone*] 20 mg PO BID 5 Days #10 tab 04/02/23 - Past Medical/Surgical History Diabetic: No -: COPD -: paroxysmal A.Fib -: HTN -: Tobacco abuse -: CVA -: skull fx -: defibrilator -: Home O2 -: Appendectomy - Family History Father Medical History: Diabetes Mother Medical History: Diabetes - Social History Smoking Status: Current every day smoker Alcohol use: No CD- Drugs: No Caffeine use: No Place of Residence: Home Review of Systems is unable to be obtained Physical Examination Temp Pulse Resp BP Pulse Ox 97.2 F 82 25 H 126/73 100 04/03/23 08:00 04/03/23 09:00 04/03/23 09:00 04/03/23 09:00 04/03/23 09:00 General: Oriented x1 Respiratory: Clear to auscultation bilaterally, Diminished, Expiratory wheezes Cardiovascular: No edema, Regular rate/rhythm, Normal S1 S2 Gastrointestinal: Normal bowel sounds, Soft and benign Musculoskeletal: No clubbing Laboratory Data (last 24 hrs) 04/03/23 04:31: WBC 8.40, Hgb 13.0 L D, Hct 40.2, Plt Count 208 04/03/23 04:31: Sodium 135 L, Potassium 3.9, BUN 13, Creatinine 0.76, Glucose 158 H, Magnesium 2.0, Total Bilirubin 0.5, AST 4 L, ALT 24, Alkaline Phosphatase 78 - Problems (1) Acute and chronic respiratory failure Current Visit: Yes Status: Acute Plan: Patient is 62 years of age admitted with acute on chronic respiratory failure secondary to COPD x-ray shows COPD changes patient has recurrent admission for COPD continues to remain agitated we will switch to scheduled nebulizers IV Rocephin, all his home medications may need dexmedetomidine titrate sat to 90% Labs reviewed fairly unremarkable patient is recurrent recent echocardiogram was normal DC Lasix Qualifiers: Respiratory failure complication: hypoxia and hypercapnia Qualified Code(s): J96.21 - Acute and chronic respiratory failure with hypoxia; J96.22 - Acute and chronic respiratory failure with hypercapnia
--- NOTE | 2023-04-03 10:57 | RAD REPORT ---
EXAM DESCRIPTION: RAD - Chest Single View - 04/03/2023 5:13 am CLINICAL HISTORY: The patient is 62 years old and is Male; DYSPNEA TECHNIQUE: Frontal view of the chest. COMPARISON: No relevant prior studies available. FINDINGS: Lungs: Mildly prominent interstitial markings. No consolidation. Pleural space: Unremarkable. No pneumothorax. Heart: Unremarkable. Mediastinum: Unremarkable. Bones/joints: Unremarkable. Tubes, lines and devices: Left-sided AICD. IMPRESSION: No acute findings in the chest. Electronically signed by: Everardo Verdin MD 04/03/2023 5:31 AM CDT Due to temporary technical issues with the PACS/Fluency reporting system, reports are being signed by the in house radiologists without review as a courtesy to insure prompt reporting. The interpreting radiologist is fully responsible for the content of the report.
[2023-04-03] MEDS ORDERED: ALBUTEROL 2.5 MG/3 ML NEB SOL NEB SCH ×2 (11:00→14:00)
[2023-04-03] MEDS: IPRATROPIUM BROM 0.5MG/2.5ML NEB SCH ×3 (11:45→20:00)
[2023-04-03] MEDS: ALBUTEROL 2.5 MG/3 ML NEB SOL NEB SCH ×3 (11:45→20:00)
[2023-04-03] MEDS ORDERED: IPRATROPIUM BROM 0.5MG/2.5ML NEB SCH (14:00)
--- NOTE | 2023-04-03 14:40 | P.PN ---
Date of Service: 04/03/23 Patient seen and examined. He is doing much better this afternoon. He has been weaned off BiPAP and he is currently tolerating 2 L oxygen by nasal cannula. He states that his nebulizer machine at home is broken. Patient states that he smoked a cigarette after discharge from the ER. Plan: Continue current nebulizers and steroid. Continue to wean down oxygen. Xanax as needed for anxiety Continue other home medications.
[2023-04-03] MEDS: ALPRAZOLAM 0.25 MG TABLET PO SCH ×2 (16:03→20:16)
[2023-04-03] MEDS: RIVAROXABAN 15 MG TABLET PO SCH (16:03)
[2023-04-03] MEDS ORDERED: GUAIFENESIN/DM 5 ML UCUP PO PRN (18:01)
[2023-04-03] MEDS: carvediloL 3.125 MG TAB PO SCH (20:14)
[2023-04-03] MEDS: ATORVASTATIN 80 MG TAB PO SCH (20:14)
[2023-04-03] MEDS: BUDESONIDE 0.5 MG/2 ML NEB NEB SCH (23:40)
[2023-04-04] MEDS: METHYLPREDNISOLONE 125 MG INJ IV SCH ×3 (00:57→16:54)
[2023-04-04] MEDS: IPRATROPIUM BROM 0.5MG/2.5ML NEB SCH ×4 (03:15→19:50)
[2023-04-04] MEDS: BUDESONIDE 0.5 MG/2 ML NEB NEB SCH ×2 (03:15→08:20)
[2023-04-04] MEDS: ALBUTEROL 2.5 MG/3 ML NEB SOL NEB SCH ×4 (03:15→19:50)
[2023-04-04] MEDS ORDERED: HYDROCODONE/APAP 7.5/325 MG TAB PO ONE (06:20)
[2023-04-04] MEDS ORDERED: HYDROCODONE/APAP 7.5/325 MG TAB ONE (06:30)
[2023-04-04 07:47] LABS: Absolute Lymphocytes (CBC) 0.3 K/uL (0.7-4.9); Hematocrit 36.3 % (39.6-49.0); Lymphocytes % 2.8 % (15.3-44.8); MCV 100.2 fL (80-100); MPV 9.2 fL (7.6-11.3); RBC Red Blood Cell Count 3.62 M/uL (4.33-5.43)
[2023-04-04 07:53] LABS: Magnesium 2.2 mg/dL (1.6-2.4); Potassium 4.2 mEq/L (3.5-5.1)
[2023-04-04] MEDS ORDERED: FUROSEMIDE 40 MG TABLET PO SCH (09:00)
[2023-04-04] MEDS: ASPIRIN EC 81 MG TAB PO SCH (09:00)
[2023-04-04] MEDS: carvediloL 3.125 MG TAB PO SCH ×2 (09:00→20:09)
[2023-04-04] MEDS: ALPRAZOLAM 0.25 MG TABLET PO SCH ×3 (09:00→20:09)
[2023-04-04] MEDS ORDERED: BENAZEPRIL 10 MG TAB PO SCH (09:00)
[2023-04-04] MEDS: CEFTRIAXONE 1,000 MG in NA CHLORIDE 0.9% 50 ML IVPB SCH (09:00)
--- NOTE | 2023-04-04 11:45 | EKG ---
Test Date: 2023-04-03 Test Time: 04:37:13 Acid Cleaner: JULIA MEASUREMENT RESULTS: Intervals: Rate: 85 NE: 144 QRSD: 86 QT: 378 QTc: 449 [place]: P: NE: 144 QRS: -16 T: -14 INTERPRETIVE STATEMENTS: Normal sinus rhythm Normal ECG Compared to ECG 04/02/2023 10:37:39 No significant changes Electronically Signed On 04-04-23 11:43:57 CDT by Ric Pandya
[2023-04-04 13:15] LABS: Blood Morphology Comment NOT SEEN (NOT SEEN); Platelet Estimate ADEQ; White Blood Cell Scan OK (OK)
[2023-04-04 15:20] VITALS: O2SAT 97
[2023-04-04] MEDS: RIVAROXABAN 15 MG TABLET PO SCH (16:54)
--- NOTE | 2023-04-04 19:47 | P.PN ---
Subjective Date of Service: 04/04/23 Chief Complaint: shortness of breath Patient is doing much better today. He has been tolerating 2 L oxygen by nasal cannula. He states that his home nebulizer machine broke. Physical Examination - Vital Signs Temperature: 97.9 F Blood Pressure: 133/75 Pulse: 80 Respirations: 21 Pulse Ox (%): 98 Assessment And Plan - Plan Physical Exam General: Alert, Oriented x3, NAD Neck: Supple, no elevated JVD Respiratory: Diminished, no crackles Cardiovascular: Normal pulses Gastrointestinal: Normal bowel sounds, Soft and benign Musculoskeletal: No clubbing, No swelling Neurological: Normal speech, Normal strength at 5/5 x4 extr, Cranial nerves 3-12 intact Diagnosis Acute hypoxic hypercarbic respiratory failure COPD exacerbation History of CVA Tobacco use Essential hypertension Assessment plan Acute hypoxic hypercarbic respiratory failure secondary to COPD exacerbation Pulmonary consulted Continue nebulizers, steroids, budesonide and antibiotics. Patient will need inhalers, nebulizer prescription prior to discharge. History of CVA Continue home medications. Essential hypertension Continue home medications Paroxysmal A-fib Continue Coreg and Xarelto Tobacco use Smoking cessation advised. Full code DVT prophylaxis: Xarelto.
[2023-04-04] MEDS: ATORVASTATIN 80 MG TAB PO SCH (20:09)
[2023-04-04 20:37] LABS: Specific Gravity 1.022 (1.005-1.030); Urine Bilirubin NEGATIVE (Negative); Urine Blood Negative (Negative); Urine Clarity Clear (Clear); Urine Color Light-Yellow (Yellow); Urine Glucose TRACE (Negative); Urine Protein NEGATIVE (Negative); Urine Urobilinogen Normal (Normal); Urine pH 6.5 (5.0-7.0)
[2023-04-05] MEDS: METHYLPREDNISOLONE 125 MG INJ IV SCH ×2 (01:39→09:16)
[2023-04-05] MEDS: ALBUTEROL 2.5 MG/3 ML NEB SOL NEB SCH ×2 (02:50→08:06)
[2023-04-05] MEDS: IPRATROPIUM BROM 0.5MG/2.5ML NEB SCH ×2 (02:50→08:06)
[2023-04-05 05:04] LABS: Absolute Lymphocytes (CBC) 0.2 K/uL (0.7-4.9); Hematocrit 35.4 % (39.6-49.0); Lymphocytes % 1.8 % (15.3-44.8); MCV 99.3 fL (80-100); MPV 9.4 fL (7.6-11.3); RBC Red Blood Cell Count 3.57 M/uL (4.33-5.43)
[2023-04-05 05:25] LABS: Magnesium 2.1 mg/dL (1.6-2.4); Potassium 4.5 mEq/L (3.5-5.1)
[2023-04-05 05:37] LABS: Phosphorus 1.5 mg/dL (2.5-4.9)
[2023-04-05 05:43] VITALS: TEMP 98.1
[2023-04-05] MEDS: POTASS/SODIUM PHOSPHATE 1 PKT POWD.PACK PO SCH ×3 (06:44→10:34)
--- NOTE | 2023-04-05 06:55 | P.PN ---
Date of Service: 04/05/23 Subjective: Feeling better today Breathing continues to improve no new / worsening problems ROS: 10 point ROS as noted above, otherwise negative Physical Exam: GEN: Alert, oriented, NAD HEENT: Normal conjunctiva, sclera anicteric CV: Regular rate and rhythm, no edema Pulm: Nonlabored respirations on 2L NC, diminished at bases b/l ABD: Soft, nontender, nondistended MSK: No joint tenderness Integumentary: No rashes Neuro: Normal speech, normal affect vitals reviewed Problem List: Acute hypoxic hypercarbic respiratory failure COPD exacerbation History of CVA Paroxysmal A-fib Hypertension Tobacco use Acute hypoxic hypercarbic respiratory failure secondary to COPD exacerbation Pulmonary consulted Continue nebulizers, steroids, budesonide and antibiotics. Patient will need inhalers, nebulizer prescription prior to discharge. History of CVA Continue home medications. Hypertension Continue home medications Paroxysmal A-fib Continue Coreg and Xarelto Tobacco use Smoking cessation advised. VTE: Home Xarleto Code: Full Dispo: Home
[2023-04-05] MEDS: BUDESONIDE 0.5 MG/2 ML NEB NEB SCH (08:06)
[2023-04-05] MEDS: CEFTRIAXONE 1,000 MG in NA CHLORIDE 0.9% 50 ML IVPB SCH (09:14)
[2023-04-05] MEDS: ASPIRIN EC 81 MG TAB PO SCH (09:16)
[2023-04-05] MEDS: ALPRAZOLAM 0.25 MG TABLET PO SCH (09:16)
[2023-04-05] MEDS: carvediloL 3.125 MG TAB PO SCH (09:16)
--- NOTE | 2023-04-05 09:21 | P.DS ---
Admission Date: 04/03/23 Discharge Date: 04/05/23 Disposition: ROUTINE DISCHARGE Discharge Condition: GOOD Reason for Admission: shortness of breath Consultations: Pulmonology - Dr. Cedillo Brief History of Present Illness: 62yo M, PMH: tobacco use, CVA, COPD, chronic diastolic heart failure, chronic respiratory failure recently hospitalized for COPD exacerbation with hypoxia and hypercapnia Patient presents to the Emergency room with shortness of breath. He was admitted yesterday and requested to go home, so he could smoke cigarettes. He reports he has home oxygen but does not need it. He is being admitted for COPD exacerbation with acute hypoxia, hypercarbia. He reports running out of some of his inhalers, not nebulizer malfunctioning. He reports symptoms worse with weather, allergies, shortness of breath worse with ambulation. Made better with medications and rest. He denies fever, chills, productive cough, chest pain, abdominal pain, edema. Hospital Course: Problem List: Acute hypoxic hypercarbic respiratory failure secondary to acute on chronic COPD exacerbation. acute on chronic COPD exacerbation History of CVA Paroxysmal A-fib Hypertension Tobacco use Patient presented with worsening shortness of breath. He was found to have a COPD exacerbation. Pulmonology was consulted. Patient was treated nebulizers, steroids, budesonide and had significant improvement of his symptoms. During his hospitalization, he reported that he had not picked up his recently prescribed inhaler and that his home nebulizer was broken. Nebulizer machine was ordered and delivered to bedside this hospitalization. Discussed sending a prescription for a different inhaler. Patient stated he will follow up with the [facility] prescription and check with Dr. Cedillo if any issues. Recommended patient to follow up with Dr. Cedillo (Pulmonology) for further management. He was recently prescribed prednisone when discharged. He has not picked this up yet, and recommend to take this medication as prescribed. New / change in prescriptions: Continue other home medications as previously prescribed Follow up: PCP 3-5 days Pulmonology (Dr. Cedillo) within 1-2 weeks Physical Exam: GEN: Alert, oriented, NAD HEENT: Normal conjunctiva, sclera anicteric CV: Regular rate and rhythm, no edema Pulm: Nonlabored respirations on 2L NC, diminished at bases b/l ABD: Soft, nontender, nondistended Neuro: Normal speech, normal affect Vital Signs/Physical Exam: Temp Pulse Resp BP Pulse Ox 98.1 F 94 H 20 129/61 98 04/05/23 04:00 04/05/23 09:16 04/05/23 06:00 04/05/23 09:16 04/05/23 06:00 Laboratory Data at Discharge: WBC 13.30 thou/uL (4.3-10.9) H 04/05/23 04:22 Hgb 11.3 g/dL (13.6-17.9) L 04/05/23 04:22 Hct 35.4 % (39.6-49.0) L 04/05/23 04:22 Plt Count 173 thou/uL (152-406) 04/05/23 04:22 Sodium 134 mEq/L (136-145) L 04/05/23 04:22 Potassium 4.5 mEq/L (3.5-5.1) 04/05/23 04:22 BUN 29 mg/dL (7-18) H 04/05/23 04:22 Creatinine 0.77 mg/dL (0.70-1.30) 04/05/23 04:22 Glucose 155 mg/dL (74-106) H 04/05/23 04:22 Phosphorus 1.5 mg/dL (2.5-4.9) L* 04/05/23 04:22 Magnesium 2.1 mg/dL (1.6-2.4) 04/05/23 04:22 Total Bilirubin 0.5 mg/dL (0.2-1.0) 04/03/23 04:31 AST 4 U/L (15-37) L 04/03/23 04:31 ALT 24 U/L (16-61) 04/03/23 04:31 Alkaline Phosphatase 78 U/L (45-117) 04/03/23 04:31 Home Medications: Aspirin [Aspirin EC 81 MG] 81 mg PO DAILY #30 tablet. 03/14/18 Benazepril HCl [Lotensin*] 10 mg PO DAILY #30 tab 03/14/18 Albuterol Neb [Proventil 0.083% Neb Soln] 1 inh Q4H PRN 03/20/23 Atorvastatin Calcium [Lipitor] 40 mg PO BEDTIME 03/20/23 Carvedilol [Coreg] 1 tab PO BID 03/20/23 Ipratropium [place] 500 mcg Q6H 03/20/23 Memantine HCl [Namenda] 1 tab PO DAILY 03/20/23 Omeprazole [Prilosec] 1 tab PO DAILY 03/20/23 Potassium Chloride [Micro-K] 1 tab PO DAILY 03/20/23 Rivaroxaban [Xarelto*] 1 tab PO DAILY 03/20/23 Fluticasone/Umeclidin/Vilanter [Trelegy Ellipta 200-62.5-25] 1 each IH DAILY 30 Days #30 aero 03/21/23 Furosemide [Lasix*] 40 mg PO DAILY #30 tab 03/24/23 predniSONE [Prednisone*] 20 mg PO BID 5 Days #10 tab 04/02/23 Physician Discharge Instructions: PROBLEM: COPD GOAL: Clear understanding of disease process INSTRUCTIONS: Patient presented with worsening shortness of breath. He was found to have a COPD exacerbation. Pulmonology was consulted. Patient was treated nebulizers, steroids, budesonide and had significant improvement of his symptoms. During his hospitalization, he reported that he had not picked up his recently prescribed inhaler and that his home nebulizer was broken. Nebulizer machine was ordered and delivered to bedside this hospitalization. Discussed sending a prescription for a different inhaler. Patient stated he will follow up with the [facility] prescription and check with Dr. Cedillo if any issues. Recommended patient to follow up with Dr. Cedillo (Pulmonology) for further management. He was recently prescribed prednisone when discharged. He has not picked this up yet, and recommend to take this medication as prescribed. New / change in prescriptions: Continue other home medications as previously prescribed Follow up: PCP 3-5 days Pulmonology (Dr. Cedillo) within 1-2 weeks If symptoms worsen, please go to the ER. Diet: Heart Healthy Activity: As Tolerated DME DME: Date Ordered: Name of Company: [employer] Services Needed: Name of Company: Date or Referral: IMMUNIZATION Influenza Vaccine Indicated: Influenza Vaccine Given: Date Given: Pneumonia Vaccine Indicated: No Pneumonia Vaccine Given: Date Given: Followup: Dameon Cedillo MD [ACTIVE - CAN ADMIT] - Time spent managing pt's care (in minutes): 45
[2023-04-05 13:54] VITALS: BP 135/70
[2023-04-05] MEDS ORDERED: ATORVASTATIN 40 MG TAB PO SCH (21:00)
== END 2023-04-05 11:50 | disposition home or self-care (01) | DRG 190 ==
LOC: ER 04:11 → ERHOLD 04:54 → 3RD-ICU 05:17
PROVIDERS: ADMIT Internal Medicine; ATTEND Hospitalist
DX: J44.1 Chronic obstructive pulmonary disease with (acute) exacerbation (principal); J96.21 Acute and chronic respiratory failure with hypoxia; J96.22 Acute and chronic respiratory failure with hypercapnia; I50.32 Chronic diastolic (congestive) heart failure; I11.0 Hypertensive heart disease with heart failure; E78.5 Hyperlipidemia, unspecified; I48.0 Paroxysmal atrial fibrillation; I25.2 Old myocardial infarction; F17.210 Nicotine dependence, cigarettes, uncomplicated; Z79.82 Long term (current) use of aspirin; Z86.73 Personal history of transient ischemic attack (TIA), and cerebral infarction without residual deficits; Z79.01 Long term (current) use of anticoagulants; Z79.52 Long term (current) use of systemic steroids; Z90.49 Acquired absence of other specified parts of digestive tract; Z95.810 Presence of automatic (implantable) cardiac defibrillator; Z79.899 Other long term (current) drug therapy
CPT/HCPCS: 36415; 36600; 71045; 80048; 80076; 81003; 83735; 84100; 84484; 85025; 93005; 94640; 94660; 94760; 99285; J0696; J1650; J2930; J7050; J7613; J7626; J7644

== ENCOUNTER 2023-04-12 14:36 | Inpatient (IN) | payer OTHER ==
[2023-04-12] MEDS ORDERED: METHYLPREDNISOLONE 125 MG INJ ONE (14:52)
[2023-04-12] MEDS ORDERED: LEVALBUTEROL 1.25 MG/3 ML NEB ONE ×2 (14:53→14:58)
[2023-04-12] MEDS ORDERED: Levofloxacin500mg IV 500 MG/100 ML BAG IV ONE (14:54)
[2023-04-12] MEDS ORDERED: NA CHLORIDE 0.9% 500 ML ONE (14:54)
[2023-04-12] MEDS ORDERED: IPRATROPIUM BROM 0.5MG/2.5ML ONE (14:54)
--- OUTSIDE RECORDS SUMMARY | 2023-04-12 14:59 | XMS REPORT | Continuity of Care Document ---
:1960 Author Organization [facility] t Address [address] [place] [address] Care Team Providers Name Role Phone Mily Goodwin MD Primary Care Physician [phone] [place] Attending Clinician Unavailable MARELY WATTERS Attending Clinician Unavailable MARELY WATTERS Attending Clinician Unavailable Rudy Xiao Attending Clinician Unavailable CARL ORLANDO Attending Clinician Unavailable CARL ORLANDO Attending Clinician Unavailable MILY GOODWIN Attending Clinician Unavailable Doctor Unassigned, Sagar Attending Clinician Unavailable Mily Goodwin MD Attending Clinician [phone] Taylor Frye RN Attending Clinician Unavailable [...] Type Policy Number Effective Date Expiration Date [facility] [id number] 2018 MEDICARE GOLD 00:00:00 Problems Condition Condition Condition Status Onset Resolution Last Treating Co mments Source Name Details Category Date Date Treatment Clinician Date 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 02-16 it y of ion ion 00:00: [address] Branch Hypotensio Hypotensio Disease Active U [...] failure 2- ity of 00:00: [place] [address] Medical Branch Closed Closed Disease Active 2013-09 Overview: Univer s fracture fracture 2-13 [place] ity of of zygoma of zygoma 00:00: g of this [place] 00 note Medical might be Branch different from the original. Chronic Fracture - not acute Fall Fall Disease Active 2013-09 Univers 2-12 ity of 00:00: [place] [address] Medical Branch Atrial Atrial Disease Active 2013-09 Univers fibrillati fibrillati 10-28 it y of on on 00:00: [place] [address] Medical Branch VT VT Disease Active 2013-09 Univers (ventricul (ventricul 10-28 it y of ar ar 00:00: [place] tachycardi tachycardi 00 Me dical a) a) Branch Allergies, Adverse Reactions, Alerts Allergy Allergy Status Severity Reaction(s) Onset Inactive Treating Comm ents Source Name Type Date Date Clinician No Known DA Active U 2019-09 [facility]ie 0[facility]01 [facility] 00:00: [address] No Known DA Active U 2019-09 [facility] Allergie 0-01 [facility] 00:00: [address] NO KNOWN Drug Active [facility] ALLERGIE Class ity of S [place] [facility] Social History Social Habit Start Date Stop Date Quantity Comments Source History of tobacco Passive smoker Un iversity of use [place] [facility] History SDOH Social Unive rsity of [facility] ical Together Branch History SDOH Social Unive rsity of [facility] Medical Branch History SDOH Social Unive rsity of [facility] Medical Membership Branch History SDOH Social Unive rsity of [facility] Medical Meetings Branch Alcohol intake 2023-03-01 2023-03-01 Current drinker Unive rsity of 00:00:00 00:00:00 of alcohol [place] Medical (finding) Branch History SDOH 2023-02-18 2023-02-18 2 University o f Housing Unable to 00:00:00 00:00:00 [place] M edical Pay Branch History SDOH 2023-02-18 2023-02-18 1 University o f Housing Places 00:00:00 00:00:00 [place] Medi lucho Lived Branch History SDOH 2023-02-18 2023-02-18 2 University o f Housing Homeless 00:00:00 00:00:00 [facility] dical Last Year Branch History SDVA 2023-02-18 2023-02-18 1 University o f Alcohol Frequency 00:00:00 00:00:00 [place] M edical Branch History SDOH Social 2023-02-18 2023-02-18 5 Unive rsity of Connections Phone 00:00:00 00:00:00 [facility] edical Branch History SDOH Social 2023-02-18 2023-02-18 7 Unive rsity of Connections Living 00:00:00 00:00:00 [place] [facility] History SDOH 2023-02-18 2023-02-18 0 University o f Physical Activity 00:00:00 00:00:00 [facility] edical DPW Branch History SDVA 2023-02-18 2023-02-18 0 University o f Physical Activity 00:00:00 00:00:00 [facility] edical MPS Branch History SDVA 2023-02-18 2023-02-18 5 University o f Financial 00:00:00 00:00:00 [place] [facility] History SDVA Food 2023-02-18 2023-02-18 1 Univers ity of Worry 00:00:00 00:00:00 [place] [facility] History SDVA Food 2023-02-18 2023-02-18 1 Univers ity of Scarcity 00:00:00 00:00:00 [place] [facility] History SDOH 2023-02-18 2023-02-18 2 University o f Transport Med 00:00:00 00:00:00 [place] Medic al Branch History SDVA 2023-02-18 2023-02-18 2 University o f Transport Non-Med 00:00:00 00:00:00 [facility] edical Branch Exposure to 2023-02-05 2023-02-15 Not sure University of SARS-CoV-2 (event) 00:00:00 15:15:00 [place] [facility] History SDVA 2022-12-02 2022-12-02 3 University o f Alcohol Std Drinks 00:00:00 00:00:00 [place] [facility] History SDOH 2022-12-02 2022-12-02 1 University o f Alcohol Binge 00:00:00 00:00:00 [place] [facility] al Branch Cigarettes smoked 2022-11-09 2022-11-09 Univers ity of current (pack per 00:00:00 00:00:00 ) - Reported Branch Tobacco use and 2022-11-09 2022-11-09 User of Universit y of exposure 00:00:00 00:00:00 smokeless [facility] tobacco Branch Education 2022-11-09 2022-11-09 13 University of 00:00:00 00:00:00 [facility] [place] [facility] Alcohol Comment 2014-08-27 2014-08-27 8 drinks per day Uni versity of 00:00:00 00:00:00 [facility] [place] [facility] Sex [birth year] At [birth year] Universit y of 00:00:00 00:00:00 [facility] [place] [facility] Smoking Status Start Date Stop Date Source Smokes tobacco daily 2022-11-09 00:00:00 [facility] ity [facility] Medications Ordered Filled Start Stop Current Ordering Indication Dosage Frequency Signature Comments Components Source Medication Medication Date Date Medication? Clinician (SIG) Name Name albuterol Yes [id number] 2.5mg Inhale 3 Univers 2.5 mg /3 6-15 mL every 4 ity of mL (0.083 00:00: (four) [place] %) 00 hours. May Medical nebulizer also Branch solution nebulize one extra every 6 hours. donepeziL 5 Yes [id number] 5mg Take 1 Univers mg tablet 6-13 tablet by ity o f 00:00: mouth in [place] 00 the Medical morning. Branch memantine 5 0 Yes [id number] 5mg Take 1 Univers mg tablet 6-13 tablet by ity o f 00:00: mouth in [place] 00 the Medical morning. Branch donepeziL 5 0 Yes [id number] 5mg Take 1 Univers mg tablet 6-13 tablet by ity o f 00:00: mouth in [place] 00 the Medical morning. Branch memantine 5 2022-0 Yes [id number] 5mg Take 1 Univers mg tablet 6-13 tablet by ity o f 00:00: mouth in [place] 00 the Medical morning. Branch donepeziL 5 2022-0 Yes [id number] 5mg Take 1 Univers mg tablet 6-13 tablet by ity o f 00:00: mouth in [place] 00 the Medical morning. Branch memantine 5 2022-0 Yes [id number] 5mg Take 1 Univers mg tablet 6-13 tablet by ity o f 00:00: mouth in [place] [address] the Medical morning. Branch busPIRone 2023-0 Yes 10mg Take 1 Univer s 10 mg 6-02 tablet by ity of tablet 16:15: mouth in [place] [address] the Medical morning Branch and 1 tablet in the evening. rivaroxaban 2023-0 Yes 15mg Take 1 Univ ers 15 mg 6-02 tablet by ity of tablet 16:15: mouth in [place] [address] the Medical morning. Branch ASPIRIN 2023-0 Yes 81mg Take 81 mg Univ ers ORAL 6-02 by mouth ity of 16:15: in the [place] [address] morning. Medical tablet Branch busPIRone 2023-0 Yes 10mg Take 1 Univer s 10 mg 6-02 tablet by ity of tablet 16:15: mouth in [place] [address] the Medical morning Branch and 1 tablet in the evening. rivaroxaban 2023-0 Yes 15mg Take 1 Univ ers 15 mg 6-02 tablet by ity of tablet 16:15: mouth in [place] [address] the Medical morning. Branch ASPIRIN 2023-0 Yes 81mg Take 81 mg Univ ers ORAL 6-02 by mouth ity of 16:15: in the [place] [address] morning. Medical tablet Branch busPIRone 2023-0 Yes 10mg Take 1 Univer s 10 mg 6-02 tablet by ity of tablet 16:15: mouth in [place] [address] the Medical morning Branch and 1 tablet in the evening. rivaroxaban 2023-0 Yes 15mg Take 1 Univ ers 15 mg 6-02 tablet by ity of tablet 16:15: mouth in [place] [address] the Medical morning. Branch ASPIRIN 2023-0 Yes 81mg Take 81 mg Univ ers ORAL 6-02 by mouth ity of 16:15: in the [place] [address] morning. Medical tablet Branch busPIRone 2023-0 Yes 10mg Take 1 Univer s 10 mg 6-02 tablet by ity of tablet 16:15: mouth in [place] [address] the Medical morning Branch and 1 tablet in the evening. rivaroxaban 2023-0 Yes 15mg Take 1 Univ ers 15 mg 6-02 tablet by ity of tablet 16:15: mouth in [place] [address] the Medical morning. Branch ASPIRIN 2023-0 Yes 81mg Take 81 mg Univ ers ORAL 6-02 by mouth ity of 16:15: in the [place] [address] morning. Medical tablet Branch busPIRone 2023-0 Yes 10mg Take 1 Univer s 10 mg 6-02 tablet by ity of tablet 16:15: mouth in [place] [address] the Medical morning Branch and 1 tablet in the evening. rivaroxaban 2023-0 Yes 15mg Take 1 Univ ers 15 mg 6-02 tablet by ity of tablet 16:15: mouth in [place] [address] the Medical morning. Branch ASPIRIN 2023-0 Yes 81mg Take 81 mg Univ ers ORAL 6-02 by mouth ity of 16:15: in the [place] [address] morning. Medical tablet Branch busPIRone 2023-0 Yes 10mg Take 1 Univer s 10 mg 6-02 tablet by ity of tablet 16:15: mouth in [place] [address] the Medical morning Branch and 1 tablet in the evening. rivaroxaban 2023-0 Yes 15mg Take 1 Univ ers 15 mg 6-02 tablet by ity of tablet 16:15: mouth in [place] [address] the Medical morning. Branch ASPIRIN 3-0 Yes 81mg Take 81 mg Univ ers ORAL 6-02 by mouth ity of 16:15: in the [place] [address] morning. Medical tablet Branch busPIRone 3-0 Yes 10mg Take 1 Univer s 10 mg 6-02 tablet by ity of tablet 16:15: mouth in [place] [address] the Medical morning Branch and 1 tablet in the evening. rivaroxaban 2023-0 Yes 15mg Take 1 Univ ers 15 mg 6-02 tablet by ity of tablet 16:15: mouth in [place] [address] the Medical morning. Branch ASPIRIN 3-0 Yes 81mg Take 81 mg Univ ers ORAL 6-02 by mouth ity of 16:15: in the [place] [address] morning. Medical tablet Branch predniSONE 2023-0 2023- Yes [id number] 40mg Take 2 Univers 20 mg 6-02 06-06 tablets by ity of tablet 00:00: 04:59 mouth in [place] 00 :00 the Medical morning Branch for 3 days. predniSONE 2023-0 2023- Yes [id number] 40mg Take 2 Univers 20 mg 6-02 06-06 tablets by ity of tablet 00:00: 04:59 mouth in [place] 00 :00 the Medical morning Branch for 3 days. predniSONE 2023-0 2023- Yes [id number] 40mg Take 2 Univers 20 mg 6-02 06-06 tablets by ity of tablet 00:00: 04:59 mouth in [place] 00 :00 the Medical morning Branch for 3 days. midodrine 5 2022-0 Yes [id number] 5mg Take 1 Univers mg tablet 6-01 tablet by ity o f 00:00: mouth [place] 00 every 8 Medical (eight) Branch hours as needed (Hypotensi on SBP <95 or DBP <50). midodrine 5 2022-0 Yes [id number] 5mg Take 1 Univers mg tablet 6-01 tablet by ity o f 00:00: mouth [place] 00 every 8 Medical (eight) Branch hours as needed (Hypotensi on SBP <95 or DBP <50). midodrine 5 2022-0 Yes [id number] 5mg Take 1 Univers mg tablet 6-01 tablet by ity o f 00:00: mouth [place] 00 every 8 Medical (eight) Branch hours as needed (Hypotensi on SBP <95 or DBP <50). midodrine 5 2022-0 Yes [id number] 5mg Take 1 Univers mg tablet 6-01 tablet by ity o f 00:00: mouth [place] 00 every 8 Medical (eight) Branch hours as needed (Hypotensi on SBP <95 or DBP <50). midodrine 5 2022-0 Yes [id number] 5mg Take 1 Univers mg tablet 6-01 tablet by ity o f 00:00: mouth [place] 00 every 8 Medical (eight) Branch hours as needed (Hypotensi on SBP <95 or DBP <50). midodrine 5 2022-0 Yes [id number] 5mg Take 1 Univers mg tablet 6-01 tablet by ity o f 00:00: mouth [place] 00 every 8 Medical (eight) Branch hours as needed (Hypotensi on SBP <95 or DBP <50). midodrine 5 2022-0 Yes [id number] 5mg Take 1 Univers mg tablet 6-01 [...] Tue02/16/23 at 0900, Until Discontinu ed, Routine
merchandise flow team member approving Restricted medication : DEDRICK [...] Tue02/20/23 at 0900, Routine sulfur 2022- No [id number] 5mL 5 mL, Unive rs hexafluorid 02-16 Intravenou i ty of e microsphr 14:00: 14:00 s, ONCE, 1 [place] (LUMASON) 00 :00 dose, On Medica l injection 5 Tue Branch mL 02/16/23 at 0900, Routine
merchandise flow team member approving Restricted medication : STEFFANIE [...] succ 05:43: 05:51 s, ONCE, 1 [place] (SOLU-MEDRO 00 :00 dose, On Medi lucho [...] mg 02/04/23 at 1615, MICHAEL albuterol Yes [id number] 2{puff} Inhale 2 Univers 90 5-19 Puffs ity of mcg/actuati 00:00: every 4 [place] as on inhaler 00 (four) Medical hours as Branch needed for Wheezing or Shortness of Breath. albuterol Yes [id number] 2{puff} Inhale 2 Univers 90 5-19 Puffs ity of mcg/actuati 00:00: every 4 [place] as on inhaler 00 (four) Medical hours as Branch needed for Wheezing or Shortness of Breath. albuterol Yes [id number] 2{puff} Inhale 2 Univers 90 5-19 Puffs ity of mcg/actuati 00:00: every 4 [place] as on inhaler 00 (four) Medical hours as Branch needed for Wheezing or Shortness of Breath. albuterol Yes [id number] 2{puff} Inhale 2 Univers 90 5-19 Puffs ity of mcg/actuati 00:00: every 4 [place] as on inhaler 00 (four) Medical hours as Branch needed for Wheezing or Shortness of Breath. albuterol Yes [id number] 2{puff} Inhale 2 Univers 90 5-19 Puffs ity of mcg/actuati 00:00: every 4 [place] as on inhaler 00 (four) Medical hours as Branch needed for Wheezing or Shortness of Breath. albuterol Yes [id number] 2{puff} Inhale 2 Univers 90 5-19 Puffs ity of mcg/actuati 00:00: every 4 [place] as on inhaler 00 (four) Medical hours as Branch needed for Wheezing or Shortness of Breath. albuterol 0 Yes [id number] 2{puff} Inhale 2 Univers 90 5-19 Puffs ity of mcg/actuati 00:00: every 4 [place] as on inhaler 00 (four) Medical hours as Branch needed for Wheezing or Shortness of Breath. albuterol 0 Yes [id number] 2{puff} Inhale 2 Univers 90 5-19 Puffs ity of mcg/actuati 00:00: every 4 [place] as on inhaler 00 (four) Medical hours as Branch needed for Wheezing or Shortness of Breath. albuterol 0 Yes [id number] 2{puff} Inhale 2 Univers 90 5-19 Puffs ity of mcg/actuati 00:00: every 4 [place] as on inhaler 00 (four) Medical hours as Branch needed for Wheezing or Shortness of Breath. albuterol 0 Yes [id number] 2{puff} Inhale 2 Univers 90 5-19 Puffs [...] succ 18:45: 18:16 s, ONCE, 1 [place] (SOLU-MEDRO 00 :00 dose, On Medi lucho [...] solution 3 Routine mL albuterol 2022-0 Yes [id number] 2{puff} Inhale 2 Univers 90 5-15 Puffs ity of mcg/actuati 00:00: every 4 [place] as on inhaler 00 (four) Medical hours as Branch needed for Wheezing, Shortness of Breath or Bronchospa sm. fluticasone 2022-0 Yes [id number] 1{puff} Inhale 1 Univers propion-bella 5-15 Puff in ity o f meteroL 00:00: the [place] (ADVAIR 00 morning Medical DISKUS) and 1 Puff Branch 250-50 in the mcg/dose evening. inhalation disk montelukast 2022-0 Yes [id number] 10mg Take 1 Univers 10 mg 5-15 tablet by ity of tablet 00:00: mouth in [place] 00 the Medical morning. Branch tiotropium 2022-0 Yes [id number] 18ug Inhale 1 Univers 18 mcg 5-15 capsule in ity of inhalation 00:00: the [place] 00 morning. Medical Branch albuterol 2022-0 Yes [id number] 2{puff} Inhale 2 Univers 90 5-15 Puffs ity of mcg/actuati 00:00: every 4 [place] as on inhaler 00 (four) Medical hours as Branch needed for Wheezing, Shortness of Breath or Bronchospa sm. fluticasone 2022-0 Yes [id number] 1{puff} Inhale 1 Univers propion-bella 5-15 Puff in ity o f meteroL 00:00: the [place] (ADVAIR 00 morning Medical DISKUS) and 1 Puff Branch 250-50 in the mcg/dose evening. inhalation disk montelukast 2022-0 Yes [id number] 10mg Take 1 Univers 10 mg 5-15 tablet by ity of tablet 00:00: mouth in [place] 00 the Medical morning. Branch tiotropium 2022-0 Yes [id number] 18ug Inhale 1 Univers 18 mcg 5-15 capsule in ity of inhalation 00:00: the [place] 00 morning. Medical Branch albuterol 2022-0 Yes [id number] 2{puff} Inhale 2 Univers 90 5-15 Puffs ity of mcg/actuati 00:00: every 4 [place] as on inhaler 00 (four) Medical hours as Branch needed for Wheezing, Shortness of Breath or Bronchospa sm. fluticasone 3-0 Yes [id number] 1{puff} Inhale 1 Univers propion-bella 5-15 Puff in ity o f meteroL 00:00: the [place] (ADVAIR 00 morning Medical DISKUS) and 1 Puff Branch 250-50 in the mcg/dose evening. inhalation disk montelukast 3-0 Yes [id number] 10mg Take 1 Univers 10 mg 5-15 tablet by ity of tablet 00:00: mouth in [place] the Medical morning. Branch tiotropium 2022-0 Yes [id number] 18ug Inhale 1 Univers 18 mcg 5-15 capsule in ity of inhalation 00:00: the [place] 00 morning. Medical Branch albuterol 2022-0 Yes [id number] 2{puff} Inhale 2 Univers 90 5-15 Puffs ity of mcg/actuati 00:00: every 4 [place] as on inhaler 00 (four) Medical hours as Branch needed for Wheezing, Shortness of Breath or Bronchospa sm. fluticasone 2022-0 Yes [id number] 1{puff} Inhale 1 Univers propion-bella 5-15 Puff in ity o f meteroL 00:00: the [place] (ADVAIR 00 morning Medical DISKUS) and 1 Puff Branch 250-50 in the mcg/dose evening. inhalation disk montelukast 3-0 Yes [id number] 10mg Take 1 Univers 10 mg 5-15 tablet by ity of tablet 00:00: mouth in [place] the morning. Branch tiotropium 3-0 Yes [id number] 18ug Inhale 1 Univers 18 mcg 5-15 capsule in ity of inhalation 00:00: the [place] 00 morning. Medical Branch fluticasone 2023-0 Yes [id number] 1{puff} Inhale 1 Univers propion-bella 5-15 Puff in ity o f meteroL 00:00: the [place] (ADVAIR 00 morning Medical DISKUS) and 1 Puff Branch 250-50 in the mcg/dose evening. inhalation disk montelukast 3-0 Yes [id number] 10mg Take 1 Univers 10 mg 5-15 tablet by ity of tablet 00:00: mouth in [place] 00 the Medical morning. Branch tiotropium 2022-0 Yes [id number] 18ug Inhale 1 Univers 18 mcg 5-15 capsule in ity of inhalation 00:00: the [place] 00 morning. Medical Branch fluticasone 2022-0 Yes [id number] 1{puff} Inhale 1 Univers propion-bella 5-15 Puff in ity o f meteroL 00:00: the [place] (ADVAIR 00 morning Medical DISKUS) and 1 Puff Branch 250-50 in the mcg/dose evening. inhalation disk montelukast 3-0 Yes [id number] 10mg Take 1 Univers 10 mg 5-15 tablet by ity of tablet 00:00: mouth in [place] 00 the Medical morning. Branch tiotropium 2022-0 Yes [id number] 18ug Inhale 1 Univers 18 mcg 5-15 capsule in ity of inhalation 00:00: the [place] 00 morning. Medical Branch fluticasone 2022-0 Yes [id number] 1{puff} Inhale 1 Univers propion-bella 5-15 Puff in ity o f meteroL 00:00: the [place] (ADVAIR 00 morning Medical DISKUS) and 1 Puff Branch 250-50 in the mcg/dose evening. inhalation disk montelukast 2022-0 Yes [id number] 10mg Take 1 Univers 10 mg 5-15 tablet by ity of tablet 00:00: mouth in [place] 00 the Medical morning. Branch tiotropium 2022-0 Yes [id number] 18ug Inhale 1 Univers 18 mcg 5-15 capsule in ity of inhalation 00:00: the [place] 00 morning. Medical Branch fluticasone 3-0 Yes [id number] 1{puff} Inhale 1 Univers propion-bella 5-15 Puff in ity o f meteroL 00:00: the [place] (ADVAIR 00 morning Medical DISKUS) and 1 Puff Branch 250-50 in the mcg/dose evening. inhalation disk montelukast 3-0 Yes [id number] 10mg Take 1 Univers 10 mg 5-15 tablet by ity of tablet 00:00: mouth in [place] 00 the Medical morning. Branch tiotropium 2022-0 Yes [id number] 18ug Inhale 1 Univers 18 mcg 5-15 capsule in ity of inhalation 00:00: the [place] 00 morning. Medical Branch fluticasone 2022-0 Yes [id number] 1{puff} Inhale 1 Univers propion-bella 5-15 Puff in ity o f meteroL 00:00: the [place] (ADVAIR 00 morning Medical DISKUS) and 1 Puff Branch 250-50 in the mcg/dose evening. inhalation disk montelukast 2022-0 Yes [id number] 10mg Take 1 Univers 10 mg 5-15 tablet by ity of tablet 00:00: mouth in [place] 00 the Medical morning. Branch tiotropium 2022-0 Yes [id number] 18ug Inhale 1 Univers 18 mcg 5-15 capsule in ity of inhalation 00:00: the [place] 00 morning. Medical Branch fluticasone 2022-0 Yes [id number] 1{puff} Inhale 1 Univers propion-bella 5-15 Puff in ity o f meteroL 00:00: the [place] (ADVAIR 00 morning Medical DISKUS) and 1 Puff Branch 250-50 in the mcg/dose evening. inhalation disk montelukast 2022-0 Yes [id number] 10mg Take 1 Univers 10 mg 5-15 tablet by ity of tablet 00:00: mouth in [place] the morning. Branch tiotropium 2022-0 Yes [id number] 18ug Inhale 1 Univers 18 mcg 5-15 capsule in ity of inhalation 00:00: the [place] 00 morning. Medical Branch fluticasone 2022-0 Yes [id number] 1{puff} Inhale 1 Univers propion-bella 5-15 Puff in ity o f meteroL 00:00: the [place] (ADVAIR 00 morning Medical DISKUS) and 1 Puff Branch 250-50 in the mcg/dose evening. inhalation disk montelukast 2022-0 Yes [id number] 10mg Take 1 Univers 10 mg 5-15 tablet by ity of tablet 00:00: mouth in [place] 00 the Medical morning. Branch tiotropium 2022-0 Yes [id number] 18ug Inhale 1 Univers 18 mcg 5-15 capsule in ity of inhalation 00:00: the [place] 00 morning. Medical Branch fluticasone 2022-0 Yes [id number] 1{puff} Inhale 1 Univers propion-bella 5-15 Puff in ity o f meteroL 00:00: the [place] (ADVAIR 00 morning Medical DISKUS) and 1 Puff Branch 250-50 in the mcg/dose evening. inhalation disk montelukast 2022-0 Yes [id number] 10mg Take 1 Univers 10 mg 5-15 tablet by ity of tablet 00:00: mouth in [place] 00 the Medical morning. Branch tiotropium 2022-0 Yes [id number] 18ug Inhale 1 Univers 18 mcg 5-15 capsule in ity of inhalation 00:00: the [place] 00 morning. Medical Branch fluticasone 2022-0 Yes [id number] 1{puff} Inhale 1 Univers propion-bella 5-15 Puff in ity o f meteroL 00:00: the [place] (ADVAIR 00 morning Medical DISKUS) and 1 Puff Branch 250-50 in the mcg/dose evening. inhalation disk montelukast 2022-0 Yes [id number] 10mg Take 1 Univers 10 mg 5-15 tablet by ity of tablet 00:00: mouth in [place] 00 the Medical morning. Branch tiotropium 2022-0 Yes [id number] 18ug Inhale 1 Univers 18 mcg 5-15 capsule in ity of inhalation 00:00: the [place] 00 morning. Medical Branch fluticasone 2022-0 Yes [id number] 1{puff} Inhale 1 Univers propion-bella 5-15 Puff in ity o f meteroL 00:00: the [place] (ADVAIR 00 morning Medical DISKUS) and 1 Puff Branch 250-50 in the mcg/dose evening. inhalation disk montelukast 2022-0 Yes [id number] 10mg Take 1 Univers 10 mg 5-15 tablet by ity of tablet 00:00: mouth in [place] 00 the Medical morning. Branch tiotropium 2022-0 Yes [id number] 18ug Inhale 1 Univers 18 mcg 5-15 capsule in ity of inhalation 00:00: the [place] 00 morning. Medical Branch albuterol 2022-0 2022- No [id number] 2{puff} Inhale 2 Univers 90 5-15 05-19 [...] 40 mg 00 :00 dose, On Medical [facility] 01/24/23 Branch at 1300, MICHAEL aspirin 2022-2022- No 325mg 325 mg, Unive rs tablet 325 01-24 Oral, ity of mg 18:00: 18:44 ONCE, 1 [place] 00 :00 dose, On Medical [facility] 01/24/23 Branch at 1300, STAT busPIRone 2023-0 Yes 10mg Take 1 Univer s 10 mg 5-08 tablet by ity of tablet 15:48: mouth in [place] [address] the Medical morning Branch and 1 tablet in the evening. rivaroxaban 2023-0 Yes 15mg Take 1 Univ ers 15 mg 5-08 tablet by ity of tablet 15:48: mouth in [place] [address] the Medical morning. Branch ASPIRIN 2023-0 Yes 81mg Take 81 mg Univ ers ORAL 5-08 by mouth ity of 15:48: in the [place] [address] morning. Medical tablet Branch busPIRone 2023-0 Yes 10mg Take 1 Univer s 10 mg 5-08 tablet by ity of tablet 15:48: mouth in [place] [address] the Medical morning Branch and 1 tablet in the evening. rivaroxaban 2023-0 Yes 15mg Take 1 Univ ers 15 mg 5-08 tablet by ity of tablet 15:48: mouth in [place] [address] the Medical morning. Branch ASPIRIN 2023-0 Yes 81mg Take 81 mg Univ ers ORAL 5-08 by mouth ity of 15:48: in the [place] [address] morning. Medical tablet Branch busPIRone 2023-0 Yes 10mg Take 1 Univer s 10 mg 5-08 tablet by ity of tablet 15:48: mouth in [place] [address] the Medical morning Branch and 1 tablet in the evening. rivaroxaban 2023-0 Yes 15mg Take 1 Univ ers 15 mg 5-08 tablet by ity of tablet 15:48: mouth in [place] [address] the Medical morning. Branch ASPIRIN 2023-0 Yes 81mg Take 81 mg Univ ers ORAL 5-08 by mouth ity of 15:48: in the [place] [address] morning. Medical tablet Branch busPIRone 2023-0 Yes 10mg Take 1 Univer s 10 mg 5-08 tablet by ity of tablet 15:48: mouth in [place] [address] the Medical morning Branch and 1 tablet in the evening. rivaroxaban 2023-0 Yes 15mg Take 1 Univ ers 15 mg 5-08 tablet by ity of tablet 15:48: mouth in [place] [address] the Medical morning. Branch ASPIRIN 2023-0 Yes 81mg Take 81 mg Univ ers ORAL 5-08 by mouth ity of 15:48: in the [place] [address] morning. Medical tablet Branch busPIRone 2023-0 Yes 10mg Take 1 [facility] 10 mg 5-08 tablet by ity of tablet 15:48: mouth in [place] [address] the Medical morning Branch and 1 tablet in the evening. rivaroxaban 2023-0 Yes 15mg Take 1 Univ ers 15 mg 5-08 tablet by ity of tablet 15:48: mouth in [place] [address] the Medical morning. Branch ASPIRIN 2023-0 Yes 81mg Take 81 mg Univ ers ORAL 5-08 by mouth ity of 15:48: in the [place] [address] morning. Medical tablet Branch busPIRone 2023-0 Yes 10mg Take 1 [facility] 10 mg 5-08 tablet by ity of tablet 15:48: mouth in [place] [address] the Medical morning Branch and 1 tablet in the evening. rivaroxaban 2023-0 Yes 15mg Take 1 Univ ers 15 mg 5-08 tablet by ity of tablet 15:48: mouth in [place] [address] the Medical morning. Branch ASPIRIN 2023-0 Yes 81mg Take 81 mg Univ ers ORAL 5-08 by mouth ity of 15:48: in the [place] [address] morning. Medical tablet Branch busPIRone 2023-0 Yes 10mg Take 1 [facility] 10 mg 5-08 tablet by ity of tablet 15:48: mouth in [place] [address] the Medical morning Branch and 1 tablet in the evening. rivaroxaban 2023-0 Yes 15mg Take 1 Univ ers 15 mg 5-08 tablet by ity of tablet 15:48: mouth in [place] [address] the Medical morning. Branch ASPIRIN 2023-0 Yes 81mg Take 81 mg Univ ers ORAL 5-08 by mouth ity of 15:48: in the [place] [address] morning. Medical tablet Branch busPIRone 2023-0 Yes 10mg Take 1 [facility] 10 mg 5-08 tablet by ity of tablet 15:48: mouth in [place] [address] the Medical morning Branch and 1 tablet in the evening. rivaroxaban 2023-0 Yes 15mg Take 1 Univ ers 15 mg 5-08 tablet by ity of tablet 15:48: mouth in [place] [address] the Medical morning. Branch ASPIRIN 2023-0 Yes 81mg Take 81 mg Univ ers ORAL 5-08 by mouth ity of 15:48: in the [place] [address] morning. Medical tablet Branch busPIRone 2023-0 Yes 10mg Take 1 [facility] 10 mg 5-08 tablet by ity of tablet 15:48: mouth in [place] [address] the Medical morning Branch and 1 tablet in the evening. rivaroxaban 2023-0 Yes 15mg Take 1 Univ ers 15 mg 5-08 tablet by ity of tablet 15:48: mouth in [place] [address] the Medical morning. Branch ASPIRIN 2023-0 Yes 81mg Take 81 mg Univ ers ORAL 5-08 by mouth ity of 15:48: in the [place] [address] morning. Medical tablet Branch busPIRone 2023-0 Yes 10mg Take 1 [facility] 10 mg 5-08 tablet by ity of tablet 15:48: mouth in [place] [address] the Medical morning Branch and 1 tablet in the evening. rivaroxaban 2023-0 Yes 15mg Take 1 Univ ers 15 mg 5-08 tablet by ity of tablet 15:48: mouth in [place] [address] the Medical morning. Branch ASPIRIN 2023-0 Yes 81mg Take 81 mg Univ ers ORAL 5-08 by mouth ity of 15:48: in the [place] [address] morning. Medical tablet Branch busPIRone 2023-0 Yes 10mg Take 1 [facility] 10 mg 5-08 tablet by ity of tablet 15:48: mouth in [place] [address] the Medical morning Branch and 1 tablet in the evening. rivaroxaban 2023-0 Yes 15mg Take 1 Univ ers 15 mg 5-08 tablet by ity of tablet 15:48: mouth in [place] [address] the Medical morning. Branch ASPIRIN 2023-0 Yes 81mg Take 81 mg Univ ers ORAL 5-08 by mouth ity of 15:48: in the [place] [address] morning. Medical tablet Branch busPIRone 2023-0 Yes 10mg Take 1 [facility] 10 mg 5-08 tablet by ity of tablet 15:48: mouth in [place] [address] the Medical morning Branch and 1 tablet in the evening. rivaroxaban 2023-0 Yes 15mg Take 1 [facility] 15 mg 5-08 tablet by ity of tablet 15:48: mouth in [place] [address] the Medical morning. Branch ASPIRIN 2023-0 Yes 81mg Take 81 mg [facility] ers ORAL 5-08 by mouth ity of 15:48: in the [place] [address] morning. Medical tablet Branch busPIRone 2023-0 Yes 10mg Take 1 [facility] 10 mg 5-08 tablet by ity of tablet 15:48: mouth in [place] [address] the Medical morning Branch and 1 tablet in the evening. rivaroxaban 2023-0 Yes 15mg Take 1 [facility] ers 15 mg 5-08 tablet by ity of tablet 15:48: mouth in [place] [address] the Medical morning. Branch ASPIRIN 0 Yes 81mg Take 81 mg Univ ers ORAL 5-08 by mouth ity of 15:48: in the [place] 43 morning. Medical tablet Branch levalbutero 2022- No 1.25mg 1.25 mg, Univers l (XOPENEX) 01-23-06 Inhalation i ty of nebulizer 00:15: 23:35 , ONCE, 1 [place] solution 00 :00 dose, On Medical 1.25 mg 01/22/23 Branch at 1915, Routine ipratropium 2022- No .5mg 0.5 mg, [facility] (ATROVENT) 01-22 05-06 Inhalation it y of 0.02 % 23:30: 23:36 , ONCE, 1 [place] nebulizer 00 :00 dose, On Medica l [...] y of succ 23:00: s, Q6H, [place] (SOLU-MEDRO 00 First dose Me dical L) [...] mg 01/21/23 Branch at 1445, STAT
[facility] member approving Restricted medication : LOUIS HONG NaCl 0.9% 2022- No 1000mL at 999 Uni vers (NS) bolus 5-05 05-05 mL/hr, ity of infusion 19:45: 22:17 1,000 mL, [place] as 1,000 mL 00 :00 IV Medical Infusion, Branch ONCE, 1 dose, On Tue01/21/23 at 1445, STAT predniSONE 2022- Yes [id number] 40mg Take 2 [facility] 20 mg 5-04 05-09 tablets by ity of tablet 00:00: 04:59 mouth in [place] 00 :00 the Medical morning [place] for 4 days. predniSONE 2022-0 2022- Yes [id number] 40mg Take 2 [facility] 20 mg 5-04 05-09 tablets by ity of tablet 00:00: 04:59 mouth in [place] 00 :00 the [facility] morning [place] for 4 days. predniSONE 2022-0 2022- Yes [id number] 40mg Take 2 Univers 20 mg 5-04 05-09 tablets by ity of tablet 00:00: 04:59 mouth in [place] 00 :00 the [facility] morning [place] for 4 days. predniSONE 2022-0 2022- Yes [id number] 40mg Take 2 Univers 20 mg 5-04 05-09 tablets by ity of tablet 00:00: 04:59 mouth in [place] 00 :00 the [facility] for 4 days. predniSONE 2022-0 2022- Yes [id number] 40mg Take 2 Univers 20 mg 5-04 05-09 tablets by ity of tablet 00:00: 04:59 mouth in [place] 00 :00 the [facility] morning [place] for 4 days. predniSONE 2022-0 2022- Yes [id number] 40mg Take 2 [facility] 20 mg 5-04 05-09 tablets by ity of tablet 00:00: 04:59 mouth in [place] 00 :00 the [facility] morning [place] for 4 days. predniSONE 2022-0 2022- Yes [id number] 40mg Take 2 [facility] 20 mg 5-04 05-09 tablets by ity of tablet 00:00: 04:59 mouth in [place] 00 :00 the [facility] morning [place] for 4 days. enoxaparin Yes 40mg 40 [...] of 0.02 % 21:00: , QID, [place] nebulizer 00 First dose Medi lucho solution (after Branch 0.5 mg last modificati on) on Tue01/19/23 at 1600, Until Discontinu ed, Routine busPIRone 3-0 Yes 10mg Take 1 Un[facility] 10 mg 5-03 tablet by ity of tablet 19:49: mouth in [place] [address] the Medical morning Branch and 1 tablet in the evening. rivaroxaban 2023-0 Yes 15mg Take 1 Univ ers 15 mg 5-03 tablet by ity of tablet 19:49: mouth in [place] [address] the Medical morning. Branch ASPIRIN 3-0 Yes 81mg Take 81 mg Univ ers ORAL 5-03 by mouth ity of 19:49: in the [place] [address] morning. Medical tablet Branch busPIRone 2023-0 Yes 10mg Take 1 [facility] 10 mg 5-03 tablet by ity of tablet 19:49: mouth in [place] [address] the Medical morning Branch and 1 tablet in the evening. rivaroxaban 2023-0 Yes 15mg Take 1 [facility] ers 15 mg 5-03 tablet by ity of tablet 19:49: mouth in [place] [address] the Medical morning. Branch ASPIRIN 2023-0 Yes 81mg Take 81 mg [facility] ers ORAL 5-03 by mouth ity of 19:49: in the [place] [address] morning. Medical tablet Branch busPIRone 2023-0 Yes 10mg Take 1 [facility] 10 mg 5-03 tablet by ity of tablet 19:49: mouth in [place] [address] the Medical morning Branch and 1 tablet in the evening. rivaroxaban 2023-0 Yes 15mg Take 1 [facility] ers 15 mg 5-03 tablet by ity of tablet 19:49: mouth in [place] [address] the Medical morning. Branch ASPIRIN 3-0 Yes 81mg Take 81 mg Univ ers ORAL 5-03 by mouth ity of 19:49: in the [place] [address] morning. Medical tablet Branch busPIRone 3-0 Yes 10mg Take 1 [facility] 10 mg 5-03 tablet by ity of tablet 19:49: mouth in [place] [address] the Medical morning Branch and 1 tablet in the evening. rivaroxaban 3-0 Yes 15mg Take 1 Univ ers 15 mg 5-03 tablet by ity of tablet 19:49: mouth in [place] [address] the Medical morning. Branch ASPIRIN 3-0 Yes 81mg Take 81 mg Univ ers ORAL 5-03 by mouth ity of 19:49: in the [place] [address] morning. Medical tablet Branch busPIRone 3-0 Yes 10mg Take 1 [facility] 10 mg 5-03 tablet by ity of tablet 19:49: mouth in [place] [address] the Medical morning Branch and 1 tablet in the evening. rivaroxaban 3-0 Yes 15mg Take 1 Univ ers 15 mg 5-03 tablet by ity of tablet 19:49: mouth in [place] [address] the Medical morning. Branch ASPIRIN 3-0 Yes 81mg Take 81 mg Univ ers ORAL 5-03 by mouth ity of 19:49: in the [place] [address] morning. Medical tablet Branch busPIRone 3-0 Yes 10mg Take 1 [facility] s 10 mg 5-03 tablet by ity of tablet 19:49: mouth in [place] [address] the Medical morning Branch and 1 tablet in the evening. rivaroxaban 3-0 Yes 15mg Take 1 Univ ers 15 mg 5-03 tablet by ity of tablet 19:49: mouth in [place] [address] the Medical morning. Branch ASPIRIN 3-0 Yes 81mg Take 81 mg Univ ers ORAL 5-03 by mouth ity of 19:49: in the [place] [address] morning. Medical tablet Branch benazepriL 2022-0 2022- No 10mg Take 1 Univ ers 10 mg 5-03 05-03 tablet by ity of tablet 17:28: 00:00 mouth in [place] 05 :00 the Medical morning. Branch potassium [...] 0.02 % 13:00: 19:13 , TID, [place] nebulizer 00 :37 First dose Medi lucho [...] 0.02 % 09:00: 12:09 , Q4H, [place] nebulizer 00 :19 First dose Medi lucho [...] Push, ity of (PF)) 08:03: Q6HPRN, [place] injection 4 53 Starting Medi lucho mg [...] mg at 0145, MICHAEL ipratropium 3-0 Yes [id number] .5mg Inhale 2.5 Univers 0.02 % 5-03 mL every 6 ity of nebulizer 00:00: (six) [place] solution 00 hours as Medical needed for Branch Wheezing, Shortness of Breath, Bronchospa sm or Chest tightness. guaiFENesin 2023-0 Yes [id number] 200mg Take 10 mL Univers 100 mg/5 mL 03 by mouth ity of solution 00:00: every 6 [place] 00 (six) Medical hours as Branch needed for Cough. ipratropium 2023-0 Yes [id number] .5mg Inhale 2.5 Univers 0.02 % 5-03 mL every 6 ity of nebulizer 00:00: (six) [place] solution 00 hours as Medical needed for Branch Wheezing, Shortness of Breath, Bronchospa sm or Chest tightness. guaiFENesin 2023-0 Yes [id number] 200mg Take 10 mL Univers 100 mg/5 mL 5-03 by mouth ity of solution 00:00: every 6 [place] 00 (six) Medical hours as Branch needed for Cough. ipratropium 2023-0 Yes [id number] .5mg Inhale 2.5 Univers 0.02 % 5-03 mL every 6 ity of nebulizer 00:00: (six) [place] solution 00 hours as Medical needed for Branch Wheezing, Shortness of Breath, Bronchospa sm or Chest tightness. guaiFENesin 2023-0 Yes [id number] 200mg Take 10 mL Univers 100 mg/5 mL 5-03 by mouth ity of solution 00:00: every 6 [place] 00 (six) Medical hours as Branch needed for Cough. ipratropium 2023-0 Yes [id number] .5mg Inhale 2.5 Univers 0.02 % 5-03 mL every 6 ity of nebulizer 00:00: (six) [place] solution 00 hours as Medical needed for Branch Wheezing, Shortness of Breath, Bronchospa sm or Chest tightness. guaiFENesin 2023-0 Yes [id number] 200mg Take 10 mL Univers 100 mg/5 mL 5-03 by mouth ity of solution 00:00: every 6 [place] 00 (six) Medical hours as Branch needed for Cough. ipratropium 2023-0 Yes [id number] .5mg Inhale 2.5 Univers 0.02 % 5-03 mL every 6 ity of nebulizer 00:00: (six) [place] solution 00 hours as Medical needed for Branch Wheezing, Shortness of Breath, Bronchospa sm or Chest tightness. guaiFENesin 2023-0 Yes [id number] 200mg Take 10 mL Univers 100 mg/5 mL 5-03 by mouth ity of solution 00:00: every 6 [place] 00 (six) Medical hours as Branch needed for Cough. ipratropium 2023-0 Yes [id number] .5mg Inhale 2.5 Univers 0.02 % 5-03 mL every 6 ity of nebulizer 00:00: (six) [place] solution 00 hours as Medical needed for Branch Wheezing, Shortness of Breath, Bronchospa sm or Chest tightness. guaiFENesin 2023-0 Yes [id number] 200mg Take 10 mL Univers 100 mg/5 mL 5-03 by mouth ity of solution 00:00: every 6 [place] 00 (six) Medical hours as Branch needed for Cough. ipratropium 2023-0 Yes [id number] .5mg Inhale 2.5 Univers 0.02 % 5-03 mL every 6 ity of nebulizer 00:00: (six) [place] solution 00 hours as Medical needed for Branch Wheezing, Shortness of Breath, Bronchospa sm or Chest tightness. guaiFENesin 2023-0 Yes [id number] 200mg Take 10 mL Univers 100 mg/5 mL 5-03 by mouth ity of solution 00:00: every 6 [place] 00 (six) Medical hours as Branch needed for Cough. ipratropium 2023-0 Yes [id number] .5mg Inhale 2.5 Univers 0.02 % 5-03 mL every 6 ity of nebulizer 00:00: (six) [place] solution 00 hours as Medical needed for Branch Wheezing, Shortness of Breath, Bronchospa sm or Chest tightness. guaiFENesin 2023-0 Yes [id number] 200mg Take 10 mL Univers 100 mg/5 mL 5-03 by mouth ity of solution 00:00: every 6 [place] 00 (six) Medical hours as Branch needed for Cough. ipratropium 2023-0 Yes [id number] .5mg Inhale 2.5 Univers 0.02 % 5-03 mL every 6 ity of nebulizer 00:00: (six) [place] solution 00 hours as Medical needed for Branch Wheezing, Shortness of Breath, Bronchospa sm or Chest tightness. guaiFENesin 2023-0 Yes [id number] 200mg Take 10 mL Univers 100 mg/5 mL 5-03 by mouth ity of solution 00:00: every 6 [place] 00 (six) Medical hours as Branch needed for Cough. ipratropium 2023-0 Yes [id number] .5mg Inhale 2.5 Univers 0.02 % 5-03 mL every 6 ity of nebulizer 00:00: (six) [place] solution 00 hours as Medical needed for Branch Wheezing, Shortness of Breath, Bronchospa sm or Chest tightness. guaiFENesin 2023-0 Yes [id number] 200mg Take 10 mL Univers 100 mg/5 mL 5-03 by mouth ity of solution 00:00: every 6 [place] 00 (six) Medical hours as Branch needed for Cough. ipratropium 2023-0 Yes [id number] .5mg Inhale 2.5 Univers 0.02 % 5-03 mL every 6 ity of nebulizer 00:00: (six) [place] solution 00 hours as Medical needed for Branch Wheezing, Shortness of Breath, Bronchospa sm or Chest tightness. guaiFENesin 2023-0 Yes [id number] 200mg Take 10 mL Univers 100 mg/5 mL 5-03 by mouth ity of solution 00:00: every 6 [place] 00 (six) Medical hours as Branch needed for Cough. ipratropium 2023-0 Yes [id number] .5mg Inhale 2.5 Univers 0.02 % 5-03 mL every 6 ity of nebulizer 00:00: (six) [place] solution 00 hours as Medical needed for Branch Wheezing, Shortness of Breath, Bronchospa sm or Chest tightness. guaiFENesin 2023-0 Yes [id number] 200mg Take 10 mL Univers 100 mg/5 mL 5-03 by mouth ity of solution 00:00: every 6 [place] 00 (six) Medical hours as Branch needed for Cough. ipratropium 2023-0 Yes [id number] .5mg Inhale 2.5 Univers 0.02 % 5-03 mL every 6 ity of nebulizer 00:00: (six) [place] solution 00 hours as Medical needed for Branch Wheezing, Shortness of Breath, Bronchospa sm or Chest tightness. guaiFENesin 2023-0 Yes [id number] 200mg Take 10 mL Univers 100 mg/5 mL 5-03 by mouth ity of solution 00:00: every 6 [place] 00 (six) Medical hours as Branch needed for Cough. ipratropium 2023-0 Yes [id number] .5mg Inhale 2.5 Univers 0.02 % 5-03 mL every 6 ity of nebulizer 00:00: (six) [place] solution 00 hours as Medical needed for Branch Wheezing, Shortness of Breath, Bronchospa sm or Chest tightness. guaiFENesin 2023-0 Yes [id number] 200mg Take 10 mL Univers 100 mg/5 mL 5-03 by mouth ity of solution 00:00: every 6 [place] 00 (six) Medical hours as Branch needed for Cough. ipratropium 2023-0 Yes [id number] .5mg Inhale 2.5 Univers 0.02 % 5-03 mL every 6 ity of nebulizer 00:00: (six) [place] solution 00 hours as Medical needed for Branch Wheezing, Shortness of Breath, Bronchospa sm or Chest tightness. guaiFENesin 2023-0 Yes [id number] 200mg Take 10 mL Univers 100 mg/5 mL 5-03 by mouth ity of solution 00:00: every 6 [place] 00 (six) Medical hours as Branch needed for Cough. ipratropium 2023-0 Yes [id number] .5mg Inhale 2.5 Univers 0.02 % 5-03 mL every 6 ity of nebulizer 00:00: (six) [place] solution 00 hours as Medical needed for Branch Wheezing, Shortness of Breath, Bronchospa sm or Chest tightness. guaiFENesin 2023-0 Yes [id number] 200mg Take 10 mL Univers 100 mg/5 mL 5-03 by mouth ity of solution 00:00: every 6 [place] 00 (six) Medical hours as Branch needed for Cough. ipratropium 2023-0 Yes [id number] .5mg Inhale 2.5 Univers 0.02 % 5-03 mL every 6 ity of nebulizer 00:00: (six) [place] solution 00 hours as Medical needed for Branch Wheezing, Shortness of Breath, Bronchospa sm or Chest tightness. guaiFENesin 2023-0 Yes [id number] 200mg Take 10 mL Univers 100 mg/5 mL 5-03 by mouth ity of solution 00:00: every 6 [place] 00 (six) Medical hours as Branch needed for Cough. ipratropium 2023-0 Yes [id number] .5mg Inhale 2.5 Univers 0.02 % 5-03 mL every 6 ity of nebulizer 00:00: (six) [place] solution 00 hours as Medical needed for Branch Wheezing, Shortness of Breath, Bronchospa sm or Chest tightness. guaiFENesin 2023-0 Yes [id number] 200mg Take 10 mL Univers 100 mg/5 mL 5-03 by mouth ity of solution 00:00: every 6 [place] 00 (six) Medical hours as Branch needed for Cough. ipratropium 2023-0 Yes [id number] .5mg Inhale 2.5 Univers 0.02 % 5-03 mL every 6 ity of nebulizer 00:00: (six) [place] solution 00 hours as Medical needed for Branch Wheezing, Shortness of Breath, Bronchospa sm or Chest tightness. guaiFENesin 2023-0 Yes [id number] 200mg Take 10 mL Univers 100 mg/5 mL 5-03 by mouth ity of solution 00:00: every 6 [place] 00 (six) Medical hours as Branch needed for Cough. guaiFENesin 2023-0 Yes [id number] 200mg Take 10 mL Univers 100 mg/5 mL 5-03 by mouth ity of solution 00:00: every 6 [place] 00 (six) Medical hours as Branch needed for Cough. guaiFENesin 2023-0 Yes [id number] 200mg Take 10 mL Univers 100 mg/5 mL 5-03 by mouth ity of solution 00:00: every 6 [place] 00 (six) Medical hours as Branch needed for Cough. guaiFENesin 2023-0 Yes [id number] 200mg Take 10 mL Univers 100 mg/5 mL 5-03 by mouth ity of solution 00:00: every 6 [place] 00 (six) Medical hours as Branch needed for Cough. guaiFENesin 2023-0 Yes [id number] 200mg Take 10 mL Univers 100 mg/5 mL 5-03 by mouth ity of solution 00:00: every 6 [place] 00 (six) Medical hours as Branch needed for Cough. guaiFENesin 2023-0 Yes [id number] 200mg Take 10 mL Univers 100 mg/5 mL 5-03 by mouth ity of solution 00:00: every 6 [place] 00 (six) Medical hours as Branch needed for Cough. guaiFENesin 2023-0 Yes [id number] 200mg Take 10 mL Univers 100 mg/5 mL 5-03 by mouth ity of solution 00:00: every 6 [place] 00 (six) Medical hours as Branch needed for Cough. guaiFENesin 2023-0 Yes [id number] 200mg Take 10 mL Univers 100 mg/5 mL 5-03 by mouth ity of solution 00:00: every 6 [place] 00 (six) Medical hours as Branch needed for Cough. ipratropium 2022- No [id number] .5mg Inhale 2.5 Univers 0.02 % 01-19 mL every 6 ity of nebulizer 00:00: 00:00 (six) [place] solution 00 :00 hours as Medical needed for Branch Wheezing, Shortness of Breath, Bronchospa sm or Chest tightness. levoFLOXaci 2022- Yes [id number] 500mg Take 1 Univers n 500 mg 01-19-08 tablet by ity o f tablet 00:00: 04:59 mouth in [place] 00 :00 the [facility] for 4 days. levoFLOXaci 2022- Yes [id number] 500mg Take 1 Univers n 500 mg 01-19-08 tablet by ity o f tablet 00:00: 04:59 mouth in [place] 00 :00 the [facility] for 4 days. levoFLOXaci 2022- Yes [id number] 500mg Take 1 Univers n 500 mg 01-19-08 tablet by ity o f tablet 00:00: 04:59 mouth in [place] 00 :00 the [facility] for 4 days. levoFLOXaci 2022- Yes [id number] 500mg Take 1 Univers n 500 mg 01-19-08 tablet by ity o f tablet 00:00: 04:59 mouth in [place] 00 :00 the [facility] for 4 days. levoFLOXaci 2022- Yes [id number] 500mg Take 1 Univers n 500 mg 01-19-08 tablet by ity o f tablet 00:00: 04:59 mouth in [place] 00 :00 the [facility] for 4 days. levoFLOXaci 2022- Yes [id number] 500mg Take 1 Univers n 500 mg - 05-08 tablet by ity o f tablet 00:00: 04:59 mouth in [place] 00 :00 the [facility] for 4 days. levalbutero 2022-2022- No [...] succ 12:00: 11:11 s, ONCE, 1 [place] (SOLU-MEDRO 00 :00 dose, On Medi lucho L) 01/17/23 Branch injection at 0700, 2 125 mg mL ipratropium 2022-0 2022- No .5mg 0.5 mg, Un ig[facility] (ATROVENT) 01-17 Inhalation it y of 0.02 % 11:45: 11:42 , ONCE, 1 [place] nebulizer 00 :00 dose, On Medica l solution Tue01/17/23 Branc h 0.5 mg at 0645, MICHAEL albuterol 2022-0 Yes [id number] 2{puff} Inhale 2 Univers 90 5-01 Puffs ity of mcg/actuati 00:00: every 4 [place] as on inhaler 00 (four) Medical hours as Branch needed for Wheezing or Shortness of Breath. albuterol 2022-0 Yes [id number] 2.5mg Inhale 3 Univers 2.5 mg /3 5-01 mL every 4 ity of mL (0.083 00:00: (four) [place] %) 00 hours. May Medical nebulizer also Branch solution nebulize one extra every 6 hours. predniSONE 2022-0 Yes [id number] 50mg Take 1 Univers 50 mg 5-01 tablet by ity of tablet 00:00: mouth in [place] 00 the Medical morning. Branch benzonatate 2022-0 Yes [id number] 200mg Take 1 Univers 200 mg 5-01 capsule by ity of capsule 00:00: mouth 3 [place] 00 (three) Medical times Branch daily as needed for Cough. ipratropium 3-0 Yes [id number] .5mg Inhale 2.5 Univers 0.02 % 5-01 mL every 6 ity of nebulizer 00:00: (six) [place] solution 00 hours as Medical needed for Branch Wheezing, Shortness of Breath, Bronchospa sm or Chest tightness. albuterol 2022-0 Yes [id number] 2{puff} Inhale 2 Univers 90 5-01 Puffs ity of mcg/actuati 00:00: every 4 [place] as on inhaler 00 (four) Medical hours as Branch needed for Wheezing or Shortness of Breath. albuterol 3-0 Yes [id number] 2.5mg Inhale 3 Univers 2.5 mg /3 5-01 mL every 4 ity of mL (0.083 00:00: (four) [place] %) 00 hours. May Medical nebulizer also Branch solution nebulize one extra every 6 hours. benzonatate 3-0 Yes [id number] 200mg Take 1 Univers 200 mg 5-01 capsule by ity of capsule 00:00: mouth 3 (three) Medical times Branch daily as needed for Cough. albuterol 3-0 Yes [id number] 2{puff} Inhale 2 Univers 90 5-01 Puffs ity of mcg/actuati 00:00: every 4 [place] as on inhaler 00 (four) Medical hours as Branch needed for Wheezing or Shortness of Breath. albuterol 3-0 Yes [id number] 2.5mg Inhale 3 Univers 2.5 mg /3 5-01 mL every 4 ity of mL (0.083 00:00: (four) [place] %) 00 hours. May Medical nebulizer also Branch solution nebulize one extra every 6 hours. benzonatate 3-0 Yes [id number] 200mg Take 1 Univers 200 mg 5-01 capsule by ity of capsule 00:00: mouth 3 (three) Medical times Branch daily as needed for Cough. albuterol 3-0 Yes [id number] 2{puff} Inhale 2 Univers 90 5-01 Puffs ity of mcg/actuati 00:00: every 4 [place] as on inhaler 00 (four) Medical hours as Branch needed for Wheezing or Shortness of Breath. albuterol 2023-0 Yes [id number] 2.5mg Inhale 3 Univers 2.5 mg /3 5-01 mL every 4 ity of mL (0.083 00:00: (four) [place] %) 00 hours. May Medical nebulizer also Branch solution nebulize one extra every 6 hours. benzonatate 2023-0 Yes [id number] 200mg Take 1 Univers 200 mg 5-01 capsule by ity of capsule 00:00: mouth 3 (three) Medical times Branch daily as needed for Cough. albuterol 2023-0 Yes [id number] 2{puff} Inhale 2 Univers 90 5-01 Puffs ity of mcg/actuati 00:00: every 4 [place] as on inhaler 00 (four) Medical hours as Branch needed for Wheezing or Shortness of Breath. albuterol 2022-0 Yes [id number] 2.5mg Inhale 3 Univers 2.5 mg /3 5-01 mL every 4 ity of mL (0.083 00:00: (four) [place] %) 00 hours. May Medical nebulizer also Branch solution nebulize one extra every 6 hours. benzonatate 2022-0 Yes [id number] 200mg Take 1 Univers 200 mg 5-01 capsule by ity of capsule 00:00: mouth 3 [place] 00 (three) Medical times Branch daily as needed for Cough. albuterol 2022-0 Yes [id number] 2{puff} Inhale 2 Univers 90 5-01 Puffs ity of mcg/actuati 00:00: every 4 [place] as on inhaler 00 (four) Medical hours as Branch needed for Wheezing or Shortness of Breath. albuterol 2022-0 Yes [id number] 2.5mg Inhale 3 Univers 2.5 mg /3 5-01 mL every 4 ity of mL (0.083 00:00: (four) [place] %) 00 hours. May Medical nebulizer also Branch solution nebulize one extra every 6 hours. benzonatate 2022-0 Yes [id number] 200mg Take 1 Univers 200 mg 5-01 capsule by ity of capsule 00:00: mouth 3 [place] 00 (three) Medical times Branch daily as needed for Cough. albuterol 2022-0 Yes [id number] 2{puff} Inhale 2 [facility] 90 5-01 Puffs ity of mcg/actuati 00:00: every 4 [place] as on inhaler 00 (four) Medical hours as Branch needed for Wheezing or Shortness of Breath. albuterol 2022-0 Yes [id number] 2.5mg Inhale 3 [facility] 2.5 mg /3 5-01 mL every 4 ity of mL (0.083 00:00: (four) [place] %) 00 hours. May Medical nebulizer also Branch solution nebulize one extra every 6 hours. benzonatate 2022-0 Yes [id number] 200mg Take 1 [facility] 200 mg 5-01 capsule by ity of capsule 00:00: mouth 3 (three) Medical times Branch daily as needed for Cough. albuterol 2022-0 Yes [id number] 2{puff} Inhale 2 [facility] 90 5-01 Puffs ity of mcg/actuati 00:00: every 4 [place] on inhaler 00 (four) Medical hours as Branch needed for Wheezing or Shortness of Breath. albuterol 2022-0 Yes [id number] 2.5mg Inhale 3 [facility] 2.5 mg /3 5-01 mL every 4 ity of mL (0.083 00:00: (four) [place] %) 00 hours. May Medical nebulizer also Branch solution nebulize one extra every 6 hours. benzonatate 2022-0 Yes [id number] 200mg Take 1 [facility] 200 mg 5-01 capsule by ity of capsule 00:00: mouth 3 (three) Medical times Branch daily as needed for Cough. albuterol 2022-0 Yes [id number] 2{puff} Inhale 2 [facility] 90 5-01 Puffs ity of mcg/actuati 00:00: every 4 [place] on inhaler 00 (four) Medical hours as Branch needed for Wheezing or Shortness of Breath. albuterol 2022-0 Yes [id number] 2.5mg Inhale 3 [facility] 2.5 mg /3 5-01 mL every 4 ity of mL (0.083 00:00: (four) [place] %) 00 hours. May Medical nebulizer also Branch solution nebulize one extra every 6 hours. benzonatate 2022-0 Yes [id number] 200mg Take 1 [facility] 200 mg 5-01 capsule by ity of capsule 00:00: mouth 3 (three) Medical times Branch daily as needed for Cough. albuterol 2022-0 Yes [id number] 2{puff} Inhale 2 [facility] 90 5-01 Puffs ity of mcg/actuati 00:00: every 4 [place] on inhaler 00 (four) Medical hours as Branch needed for Wheezing or Shortness of Breath. albuterol 3-0 Yes [id number] 2.5mg Inhale 3 [facility] 2.5 mg /3 5-01 mL every 4 ity of mL (0.083 00:00: (four) [place] %) 00 hours. May Medical nebulizer also Branch solution nebulize one extra every 6 hours. benzonatate 2022-0 Yes [id number] 200mg Take 1 [facility] 200 mg 5-01 capsule by ity of capsule 00:00: mouth 3 [place] 00 (three) Medical times Branch daily as needed for Cough. albuterol 2022-0 Yes [id number] 2{puff} Inhale 2 [facility] 90 5-01 Puffs ity of mcg/actuati 00:00: every 4 [place] on inhaler 00 (four) Medical hours as Branch needed for Wheezing or Shortness of Breath. albuterol 2022-0 Yes [id number] 2.5mg Inhale 3 [facility] 2.5 mg /3 5-01 mL every 4 ity of mL (0.083 00:00: (four) [place] %) 00 hours. May Medical nebulizer also Branch solution nebulize one extra every 6 hours. benzonatate 2022-0 Yes [id number] 200mg Take 1 [facility] 200 mg 5-01 capsule by ity of capsule 00:00: mouth 3 (three) Medical times Branch daily as needed for Cough. albuterol 2022-0 Yes [id number] 2{puff} Inhale 2 [facility] 90 5-01 Puffs ity of mcg/actuati 00:00: every 4 [place] on inhaler 00 (four) Medical hours as Branch needed for Wheezing or Shortness of Breath. albuterol 2022-0 Yes [id number] 2.5mg Inhale 3 [facility] 2.5 mg /3 5-01 mL every 4 ity of mL (0.083 00:00: (four) [place] %) 00 hours. May Medical nebulizer also Branch solution nebulize one extra every 6 hours. benzonatate 3-0 Yes [id number] 200mg Take 1 [facility] 200 mg 5-01 capsule by ity of capsule 00:00: mouth 3 (three) Medical times Branch daily as needed for Cough. albuterol 2022-0 Yes [id number] 2{puff} Inhale 2 [facility] 90 5-01 Puffs ity of mcg/actuati 00:00: every 4 [place] on inhaler 00 (four) Medical hours as Branch needed for Wheezing or Shortness of Breath. albuterol 2023-0 Yes [id number] 2.5mg Inhale 3 [facility] 2.5 mg /3 5-01 mL every 4 ity of mL (0.083 00:00: (four) [place] %) 00 hours. May Medical nebulizer also Branch solution nebulize one extra every 6 hours. benzonatate 2022-0 Yes [id number] 200mg Take 1 [facility] 200 mg 5-01 capsule by ity of capsule 00:00: mouth 3 [place] 00 (three) Medical times Branch daily as needed for Cough. albuterol 2022-0 Yes [id number] 2{puff} Inhale 2 [facility] 90 5-01 Puffs ity of mcg/actuati 00:00: every 4 [place] on inhaler 00 (four) Medical hours as Branch needed for Wheezing or Shortness of Breath. albuterol 2022-0 Yes [id number] 2.5mg Inhale 3 [facility] 2.5 mg /3 5-01 mL every 4 ity of mL (0.083 00:00: (four) [place] %) 00 hours. May Medical nebulizer also Branch solution nebulize one extra every 6 hours. benzonatate 2022-0 Yes [id number] 200mg Take 1 [facility] 200 mg 5-01 capsule by ity of capsule 00:00: mouth 3 (three) Medical times Branch daily as needed for Cough. albuterol 2022-0 Yes [id number] 2{puff} Inhale 2 [facility] 90 5-01 Puffs ity of mcg/actuati 00:00: every 4 [place] on inhaler 00 (four) Medical hours as Branch needed for Wheezing or Shortness of Breath. albuterol 2022-0 Yes [id number] 2.5mg Inhale 3 [facility] 2.5 mg /3 5-01 mL every 4 ity of mL (0.083 00:00: (four) [place] %) 00 hours. May Medical nebulizer also Branch solution nebulize one extra every 6 hours. benzonatate 2022-0 Yes [id number] 200mg Take 1 [facility] 200 mg 5-01 capsule by ity of capsule 00:00: mouth 3 [place] 00 (three) Medical times Branch daily as needed for Cough. albuterol 2022-0 Yes [id number] 2{puff} Inhale 2 [facility] 90 5-01 Puffs ity of mcg/actuati 00:00: every 4 [place] on inhaler 00 (four) Medical hours as Branch needed for Wheezing or Shortness of Breath. albuterol 3-0 Yes [id number] 2.5mg Inhale 3 [facility] 2.5 mg /3 5-01 mL every 4 ity of mL (0.083 00:00: (four) [place] %) 00 hours. May Medical nebulizer also Branch solution nebulize one extra every 6 hours. benzonatate 3-0 Yes [id number] 200mg Take 1 [facility] 200 mg 5-01 capsule by ity of capsule 00:00: mouth 3 (three) Medical times Branch daily as needed for Cough. albuterol 2022-0 Yes [id number] 2{puff} Inhale 2 [facility] 90 5-01 Puffs ity of mcg/actuati 00:00: every 4 [place] on inhaler 00 (four) Medical hours as Branch needed for Wheezing or Shortness of Breath. albuterol 2022-0 Yes [id number] 2.5mg Inhale 3 [facility] 2.5 mg /3 5-01 mL every 4 ity of mL (0.083 00:00: (four) [place] %) 00 hours. May Medical nebulizer also Branch solution nebulize one extra every 6 hours. benzonatate 2022-0 Yes [id number] 200mg Take 1 [facility] 200 mg 5-01 capsule by ity of capsule 00:00: mouth 3 (three) Medical times Branch daily as needed for Cough. albuterol 3-0 Yes [id number] 2.5mg Inhale 3 [facility] 2.5 mg /3 5-01 mL every 4 ity of mL (0.083 00:00: (four) [place] %) 00 hours. May Medical nebulizer also Branch solution nebulize one extra every 6 hours. benzonatate 3-0 Yes [id number] 200mg Take 1 [facility] 200 mg 5-01 capsule by ity of capsule 00:00: mouth 3 (three) Medical times Branch daily as needed for Cough. albuterol 3-0 Yes [id number] 2.5mg Inhale 3 [facility] 2.5 mg /3 5-01 mL every 4 ity of mL (0.083 00:00: (four) [place] %) 00 hours. May Medical nebulizer also Branch solution nebulize one extra every 6 hours. benzonatate 2023-0 Yes [id number] 200mg Take 1 [facility] 200 mg 5-01 capsule by ity of capsule 00:00: mouth 3 (three) Medical times Branch daily as needed for Cough. albuterol 2023-0 Yes [id number] 2.5mg Inhale 3 [facility] 2.5 mg /3 5-01 mL every 4 ity of mL (0.083 00:00: (four) [place] %) 00 hours. May Medical nebulizer also Branch solution nebulize one extra every 6 hours. benzonatate 3-0 Yes [id number] 200mg Take 1 [facility] 200 mg 5-01 capsule by ity of capsule 00:00: mouth 3 (three) Medical times Branch daily as needed for Cough. albuterol 3-0 Yes [id number] 2.5mg Inhale 3 [facility] 2.5 mg /3 5-01 mL every 4 ity of mL (0.083 00:00: (four) [place] %) 00 hours. May Medical nebulizer also Branch solution nebulize one extra every 6 hours. albuterol 3-0 Yes [id number] 2.5mg Inhale 3 [facility] 2.5 mg /3 5-01 mL every 4 ity of mL (0.083 00:00: (four) [place] %) 00 hours. May Medical nebulizer also Branch solution nebulize one extra every 6 hours. albuterol 2023-0 Yes [id number] 2.5mg Inhale 3 [facility] 2.5 mg /3 5-01 mL every 4 ity of mL (0.083 00:00: (four) [place] %) 00 hours. May Medical nebulizer also Branch solution nebulize one extra every 6 hours. albuterol 2023-0 Yes [id number] 2.5mg Inhale 3 [facility] 2.5 mg /3 5-01 mL every 4 ity of mL (0.083 00:00: (four) [place] %) 00 hours. May Medical nebulizer also Branch solution nebulize one extra every 6 hours. albuterol 2023-0 Yes [id number] 2.5mg Inhale 3 [facility] 2.5 mg /3 5-01 mL every 4 ity of mL (0.083 00:00: (four) [place] %) 00 hours. May Medical nebulizer also Branch solution nebulize one extra every 6 hours. albuterol 2022- Yes [id number] 2.5mg Inhale 3 [facility] 2.5 mg /3 5-01 mL every 4 ity of mL (0.083 00:00: (four) [place] %) 00 hours. May Medical nebulizer also Branch solution nebulize one extra every 6 hours. albuterol 2022- No [id number] 2.5mg Inhale 3 [facility] 2.5 mg /3 5-01 06-15 mL every 4 ity of mL (0.083 00:00: 00:00 (four) [place] %) 00 :00 hours. May Medical nebulizer also Branch solution nebulize one extra every 6 hours. benzonatate 2022- No [id number] 200mg Take 1 [facility] 200 mg 01-17- capsule by ity of capsule 00:00: 00:00 mouth 3 [place] 00 :00 (three) Medical times Branch daily as needed for Cough. albuterol 2022- No [id number] 2{puff} Inhale 2 [facility] 90 - 05-19 Puffs ity of mcg/actuati 00:00: 00:00 every 4 [place] on inhaler 00 :00 (four) Medical hours as Branch needed for Wheezing or Shortness of Breath. predniSONE 2022- No [id number] 50mg Take 1 [facility] 50 mg 01-17 05-03 tablet by ity of tablet 00:00: 00:00 mouth in [place] 00 :00 the Medical morning. Branch ipratropium 2022- No [id number] .5mg Inhale 2.5 [facility] 0.02 % 01-17 [...] ity of tablet 14:36: mouth in [place] 57 the Medical morning Branch and 1 tablet in the evening. rivaroxaban 2023-0 Yes 15mg Take 1 [facility] ers 15 mg 4-21 tablet by ity of tablet 14:36: mouth in [place] [address] the Medical morning. Branch ASPIRIN 2023-0 Yes 81mg Take 81 mg [facility] ers ORAL 4-21 by mouth ity of 14:36: in the [place] [address] morning. Medical tablet Branch benazepriL 2023-0 Yes 10mg Take 1 [facility] rs 10 mg 4-21 tablet by ity of tablet 14:36: mouth in [place] [address] the Medical morning. Branch busPIRone 2023-0 Yes 10mg Take 1 [facility] 10 mg 4-21 tablet by ity of tablet 14:36: mouth in [place] [address] the Medical morning Branch and 1 tablet in the evening. rivaroxaban 2023-0 Yes 15mg Take 1 [facility] ers 15 mg 4-21 tablet by ity of tablet 14:36: mouth in [place] [address] the Medical morning. Branch ASPIRIN 2023-0 Yes 81mg Take 81 mg [facility] ers ORAL 4-21 by mouth ity of 14:36: in the [place] [address] morning. Medical tablet Branch benazepriL 2023-0 Yes 10mg Take 1 [facility] rs 10 mg 4-21 tablet by ity of tablet 14:36: mouth in [place] [address] the Medical morning. Branch busPIRone 2023-0 Yes 10mg Take 1 [facility] 10 mg 4-21 tablet by ity of tablet 14:36: mouth in [place] [address] the Medical morning Branch and 1 tablet in the evening. rivaroxaban 2023-0 Yes 15mg Take 1 [facility] ers 15 mg 4-21 tablet by ity of tablet 14:36: mouth in [place] [address] the Medical morning. Branch ASPIRIN 2023-0 Yes 81mg Take 81 mg [facility] ers ORAL 4-21 by mouth ity of 14:36: in the [place] [address] morning. Medical tablet Branch benazepriL 2023-0 Yes 10mg Take 1 [facility] rs 10 mg 4-21 tablet by ity of tablet 14:36: mouth in [place] [address] the Medical morning. Branch busPIRone 2023-0 Yes 10mg Take 1 [facility] 10 mg 4-21 tablet by ity of tablet 14:36: mouth in [place] [address] the Medical morning Branch and 1 tablet in the evening. rivaroxaban 2023-0 Yes 15mg Take 1 [facility] ers 15 mg 4-21 tablet by ity of tablet 14:36: mouth in [place] [address] the Medical morning. Branch ASPIRIN 2023-0 Yes 81mg Take 81 mg [facility] ers ORAL 4-21 by mouth ity of 14:36: in the [place] [address] morning. Medical tablet Branch benazepriL 2023-0 Yes 10mg Take 1 [facility] rs 10 mg 4-21 tablet by ity of tablet 14:36: mouth in [place] [address] the Medical morning. Branch donepeziL 5 3-0 Yes 5mg Take 1 [facility] ers mg tablet 4-21 tablet by ity o f 00:00: mouth in [place] 00 the Medical morning. Branch memantine 5 2023-0 Yes 5mg Take 1 [facility] ers mg tablet 4-21 tablet by ity o f 00:00: mouth in [place] 00 the Medical morning. Branch donepeziL 5 2023-0 Yes 5mg Take 1 [facility] ers mg tablet 4-21 tablet by ity o f 00:00: mouth in [place] 00 the Medical morning. Branch memantine 5 2023-0 Yes 5mg Take 1 [facility] ers mg tablet 4-21 tablet by ity o f 00:00: mouth in [place] 00 the Medical morning. Branch donepeziL 5 2023-0 Yes 5mg Take 1 [facility] ers mg tablet 4-21 tablet by ity o f 00:00: mouth in [place] 00 the Medical morning. Branch memantine 5 2023-0 Yes 5mg Take 1 [facility] ers mg tablet 4-21 tablet by ity o f 00:00: mouth in [place] 00 the Medical morning. Branch donepeziL 5 2023-0 Yes 5mg Take 1 [facility] ers mg tablet 4-21 tablet by ity o f 00:00: mouth in [place] 00 the Medical morning. Branch memantine 5 2023-0 Yes 5mg Take 1 [facility] ers mg tablet 4-21 tablet by ity o f 00:00: mouth in [place] 00 the Medical morning. Branch donepeziL 5 2023-0 Yes 5mg Take 1 [facility] ers mg tablet 4-21 tablet by ity o f 00:00: mouth in [place] 00 the Medical morning. Branch memantine 5 2023-0 Yes 5mg Take 1 [facility] ers mg tablet 4-21 tablet by ity o f 00:00: mouth in [place] the Medical morning. Branch donepeziL 5 2023-0 Yes 5mg Take 1 [facility] ers mg tablet 4-21 tablet by ity o f 00:00: mouth in [place] the Medical morning. Branch memantine 5 2023-0 Yes 5mg Take 1 [facility] ers mg tablet 4-21 tablet by ity o f 00:00: mouth in [place] the Medical morning. Branch donepeziL 5 2023-0 Yes 5mg Take 1 [facility] ers mg tablet 4-21 tablet by ity o f 00:00: mouth in [place] the Medical morning. Branch memantine 5 2023-0 Yes 5mg Take 1 [facility] ers mg tablet 4-21 tablet by ity o f 00:00: mouth in [place] the Medical morning. Branch donepeziL 5 2023-0 Yes 5mg Take 1 [facility] ers mg tablet 4-21 tablet by ity o f 00:00: mouth in [place] the Medical morning. Branch memantine 5 2023-0 Yes 5mg Take 1 [facility] ers mg tablet 4-21 tablet by ity o f 00:00: mouth in [place] 00 the Medical morning. Branch donepeziL 5 2023-0 Yes 5mg Take 1 [facility] ers mg tablet 4-21 tablet by ity o f 00:00: mouth in [place] 00 the Medical morning. Branch memantine 5 2023-0 Yes 5mg Take 1 [facility] ers mg tablet 4-21 tablet by ity o f 00:00: mouth in [place] 00 the Medical morning. Branch donepeziL 5 2023-0 Yes 5mg Take 1 [facility] ers mg tablet 4-21 tablet by ity o f 00:00: mouth in [place] 00 the Medical morning. Branch memantine 5 2023-0 Yes 5mg Take 1 [facility] ers mg tablet 4-21 tablet by ity o f 00:00: mouth in [place] 00 the Medical morning. Branch donepeziL 5 2023-0 Yes 5mg Take 1 [facility] ers mg tablet 4-21 tablet by ity o f 00:00: mouth in [place] 00 the Medical morning. Branch memantine 5 2023-0 Yes 5mg Take 1 [facility] ers mg tablet 4-21 tablet by ity o f 00:00: mouth in [place] 00 the Medical morning. Branch donepeziL 5 2023-0 Yes 5mg Take 1 [facility] ers mg tablet 4-21 tablet by ity o f 00:00: mouth in [place] 00 the Medical morning. Branch memantine 5 2023-0 Yes 5mg Take 1 [facility] ers mg tablet 4-21 tablet by ity o f 00:00: mouth in [place] the Medical morning. Branch donepeziL 5 2023-0 Yes 5mg Take 1 [facility] ers mg tablet 4-21 tablet by ity o f 00:00: mouth in [place] the Medical morning. Branch memantine 5 2023-0 Yes 5mg Take 1 [facility] ers mg tablet 4-21 tablet by ity o f 00:00: mouth in [place] the Medical morning. Branch donepeziL 5 2023-0 Yes 5mg Take 1 [facility] ers mg tablet 4-21 tablet by ity o f 00:00: mouth in [place] the Medical morning. Branch memantine 5 2023-0 Yes 5mg Take 1 [facility] ers mg tablet 4-21 tablet by ity o f 00:00: mouth in [place] the Medical morning. Branch donepeziL 5 2023-0 Yes 5mg Take 1 [facility] ers mg tablet 4-21 tablet by ity o f 00:00: mouth in [place] 00 the Medical morning. Branch memantine 5 2023-0 Yes 5mg Take 1 [facility] ers mg tablet 4-21 tablet by ity o f 00:00: mouth in [place] 00 the Medical morning. Branch donepeziL 5 2023-0 Yes 5mg Take 1 [facility] ers mg tablet 4-21 tablet by ity o f 00:00: mouth in [place] 00 the Medical morning. Branch memantine 5 2023-0 Yes 5mg Take 1 [facility] ers mg tablet 4-21 tablet by ity o f 00:00: mouth in [place] 00 the Medical morning. Branch donepeziL 5 2023-0 Yes 5mg Take 1 [facility] ers mg tablet 4-21 tablet by ity o f 00:00: mouth in [place] 00 the Medical morning. Branch memantine 5 2023-0 Yes 5mg Take 1 [facility] ers mg tablet 4-21 tablet by ity o f 00:00: mouth in [place] 00 the Medical morning. Branch donepeziL 5 2023-0 Yes 5mg Take 1 [facility] ers mg tablet 4-21 tablet by ity o f 00:00: mouth in [place] the Medical morning. Branch memantine 5 2023-0 Yes 5mg Take 1 [facility] ers mg tablet 4-21 tablet by ity o f 00:00: mouth in [place] the Medical morning. Branch donepeziL 5 2023-0 Yes 5mg Take 1 [facility] ers mg tablet 4-21 tablet by ity o f 00:00: mouth in [place] the Medical morning. Branch memantine 5 2023-0 Yes 5mg Take 1 [facility] ers mg tablet 4-21 tablet by ity o f 00:00: mouth in [place] the Medical morning. Branch donepeziL 5 2023-0 Yes 5mg Take 1 [facility] ers mg tablet 4-21 tablet by ity o f 00:00: mouth in [place] the Medical morning. Branch memantine 5 2023-0 Yes 5mg Take 1 [facility] ers mg tablet 4-21 tablet by ity o f 00:00: mouth in [place] the Medical morning. Branch donepeziL 5 2023-0 Yes 5mg Take 1 [facility] ers mg tablet 4-21 tablet by ity o f 00:00: mouth in [place] the Medical morning. Branch memantine 5 2023-0 Yes 5mg Take 1 [facility] ers mg tablet 4-21 tablet by ity o f 00:00: mouth in [place] the Medical morning. Branch donepeziL 5 2023-0 Yes 5mg Take 1 [facility] ers mg tablet 4-21 tablet by ity o f 00:00: mouth in [place] 00 the Medical morning. Branch memantine 5 2023-0 Yes 5mg Take 1 [facility] ers mg tablet 4-21 tablet by ity o f 00:00: mouth in [place] 00 the Medical morning. Branch donepeziL 5 2023-0 Yes 5mg Take 1 [facility] ers mg tablet 4-21 tablet by ity o f 00:00: mouth in [place] 00 the Medical morning. Branch memantine 5 2023-0 Yes 5mg Take 1 [facility] ers mg tablet 4-21 tablet by ity o f 00:00: mouth in [place] 00 the Medical morning. Branch donepeziL 5 2023-0 Yes 5mg Take 1 [facility] ers mg tablet 4-21 tablet by ity o f 00:00: mouth in [place] 00 the Medical morning. Branch memantine 5 2023-0 Yes 5mg Take 1 [facility] ers mg tablet 4-21 tablet by ity o f 00:00: mouth in [place] 00 the Medical morning. Branch donepeziL 5 2023-0 Yes 5mg Take 1 [facility] ers mg tablet 4-21 tablet by ity o f 00:00: mouth in [place] 00 the Medical morning. Branch memantine 5 2023-0 Yes 5mg Take 1 [facility] ers mg tablet 4-21 tablet by ity o f 00:00: mouth in [place] 00 the Medical morning. Branch donepeziL 5 2023-0 Yes 5mg Take 1 [facility] ers mg tablet 4-21 tablet by ity o f 00:00: mouth in [place] 00 the Medical morning. Branch memantine 5 2023-0 Yes 5mg Take 1 [facility] ers mg tablet 4-21 tablet by ity o f 00:00: mouth in [place] 00 the Medical morning. Branch donepeziL 5 2023-0 Yes 5mg Take 1 [facility] ers mg tablet 4-21 tablet by ity o f 00:00: mouth in [place] 00 the Medical morning. Branch memantine 5 2023-0 Yes 5mg Take 1 [facility] ers mg tablet 4-21 tablet by ity o f 00:00: mouth in [place] 00 the Medical morning. Branch donepeziL 5 2023-0 2023- No 5mg Take 1 [facility] vers mg tablet 01-07- tablet by ity of 00:00: 00:00 mouth in [place] 00 :00 the Medical morning. Branch memantine 5 2023-0 2023- No 5mg Take 1 [facility] vers mg tablet 01-07- tablet by ity of 00:00: 00:00 mouth in [place] 00 :00 the Medical morning. Branch donepeziL 5 2023-0 2023- No 5mg Take 1 [facility] vers mg tablet 4-09 03- tablet by ity of 00:00: 00:00 mouth in [place] 00 :00 the Medical morning. Branch memantine 5 2022-0 3- No 5mg Take 1 [facility] vers mg tablet 01-07 tablet by ity of 00:00: 00:00 mouth in [place] 00 :00 the Medical morning. Branch tamsulosin 2023-0 2023- No [id number] .4mg Take 1 [facility] 0.4 mg 24 3-27 -27 capsule by ity of hr capsule 00:00: 04:59 mouth in [place] 00 :00 the Medical morning Branch for 30 days. tamsulosin 2023-0 2023- No [id number] .4mg Take 1 [facility] 0.4 mg 24 3-13 01- capsule by ity of hr capsule 00:00: 04:59 mouth in [place] 00 :00 the Medical morning Branch for 30 days. tamsulosin 2023-0 2023- No [id number] .4mg Take 1 [facility] 0.4 mg 24 3-13 01- capsule by ity of hr capsule 00:00: 04:59 mouth in [place] 00 :00 the Medical morning Branch for 30 days. tamsulosin 2023-0 2023- No [id number] .4mg Take 1 [facility] 0.4 mg 24 3-13 01- capsule by ity of hr capsule 00:00: 04:59 mouth in [place] 00 :00 the Medical morning Branch for 30 days. tamsulosin 2023-0 2023- No [id number] .4mg Take 1 [facility] 0.4 mg 24 3-13 01- capsule by ity of hr capsule 00:00: 04:59 mouth in [place] 00 :00 the Medical morning Branch for 30 days. tamsulosin 2023-0 2023- No [id number] .4mg Take 1 [facility] 0.4 mg 24 [...] 12/12/22 at 1230, Until Discontinu ed, Routine
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 rivaroxaban 2023-0 Yes 15mg Take 1 Univ ers (XARELTO) 3-26 tablet by ity o f 15 mg 14:37: mouth in [place] tablet 13 the Medical morning. Branch aspirin 81 3-0 Yes 81mg Take 81 mg [facility] nivers mg chewable 3-26 by mouth ity of tablet 14:37: in the [place] [address] morning. Medical tablet Branch busPIRone 3-0 Yes 10mg Take 1 [facility] s 10 mg 3-26 tablet by ity of tablet 14:37: mouth in [place] [address] the Medical morning Branch and 1 tablet in the evening. rivaroxaban 2023-0 Yes 15mg Take 1 [facility] ers (XARELTO) 3-26 tablet by ity o f 15 mg 14:37: mouth in [place] tablet 13 the Medical morning. Branch busPIRone 3-0 Yes 10mg Take 1 [facility] s 10 mg 3-26 tablet by ity of tablet 14:37: mouth in [place] [address] the Medical morning Branch and 1 tablet in the evening. rivaroxaban 2023-0 Yes 15mg Take 1 [facility] ers (XARELTO) 3-26 tablet by ity o f 15 mg 14:37: mouth in [place] tablet 13 the Medical morning. Branch aspirin 81 3-0 Yes 81mg Take 81 mg U nivers mg chewable 3-26 by mouth ity of tablet 14:37: in the [place] [address] morning. Medical tablet Branch busPIRone 2023-0 Yes 10mg Take 1 [facility] s 10 mg 3-26 tablet by ity of tablet 14:37: mouth in [place] [address] the Medical morning Branch and 1 tablet in the evening. rivaroxaban 2023-0 Yes 15mg Take 1 Univ ers (XARELTO) 3-26 tablet by ity o f 15 mg 14:37: mouth in [place] tablet 13 the Medical morning. Branch aspirin 81 Yes 81mg Take 81 mg U nivers mg chewable 12-12 by mouth ity of tablet 14:37: in the [place] 13 morning. Medical tablet Branch tamsulosin Yes .4mg 0.4 mg, Univ ers (FLOMAX) 12-12 Oral, ity of capsule 0.4 14:00: DAILY, [place] mg 00 First dose Medical on [facility] 12/12/22 at 0900, Until Discontinu ed, Routine aspirin EC Yes 81mg 81 mg, Unive rs tablet 81 12-12 Oral, ity of mg 14:00: DAILY, [place] 00 First dose Medical on [facility] 12/12/22 at 0900, Until Discontinu ed, Routine methylpredn Yes 40mg 40 mg, Univ ers isolone sod 12-12 Intravenou it y of succ 14:00: s, DAILY, [place] (SOLU-MEDRO 00 First dose Me dical L) (after Branch injection last 40 mg modificati on) on [place] 12/12/22 at 0900, Until Discontinu ed, Routine carvediloL 2022- No 25mg Take 1 Univ ers 25 mg 12-12 tablet by ity of tablet 11:47: 00:00 mouth in [place] 13 :00 the Medical morning Branch and [...] of tablet 11:47: 00:00 mouth in [place] 13 :00 the Medical morning. Branch hydroCHLORO 2022-0 2022- No 25mg Take 1 Uni vers thiazide 25 12-12 tablet by it y of mg tablet 11:47: 00:00 mouth in [place] 13 :00 the Medical morning. Branch melatonin Yes 6mg 6 mg, [facility] (MELATIN) 3-26 Oral, QHS, ity of tablet 6 mg 02:00: First dose [place] 00 on [facility] 12/11/22 at [place] 2100, Until Discontinu ed, Routine atorvastati Yes 40mg 40 mg, Univ ers n (LIPITOR) 3-26 Oral, QHS, it y of tablet 40 02:00: First dose [place] mg 00 on [facility] 12/11/22 at [place] 2100, Until Discontinu ed, Routine carvediloL 2022- No [id number] 3.125mg Take 1 [facility] 3.125 mg 3- 04-26 tablet by ity o f tablet 00:00: 04:59 mouth in [place] 00 :00 the [facility] and 1 tablet in the evening. Take with meals. Do all this for 30 days. atorvastati 2022- No [id number] 40mg Take 1 Univers n 40 mg 3-12 01- tablet by ity of tablet 00:00: 04:59 mouth at [place] 00 :00 [facility] for 30 Branch days. donepeziL 5 2022- No [id number] 5mg Take 1 Univers mg tablet -12 01- tablet by ity of 00:00: 04:59 mouth in [place] 00 :00 [facility] for 30 days. memantine 5 2022- No [id number] 5mg Take 1 Univers mg tablet -12 01-26 tablet by ity of 00:00: 04:59 mouth in [place] 00 :00 [facility] for 30 days. carvediloL 2022- No [id number] 3.125mg Take 1 Univers 3.125 mg 3-26 -26 tablet by ity o f tablet 00:00: 04:59 mouth in [place] 00 :00 [facility] and 1 tablet in the evening. Take with meals. Do all this for 30 days. atorvastati 2022- No [id number] 40mg Take 1 Univers n 40 mg 3-26 04-26 tablet by ity of tablet 00:00: 04:59 mouth at [place] 00 :00 [facility] Branch [facility] donepeziL 5 2022- No [id number] 5mg Take 1 [facility] mg tablet -12 01- tablet by ity of 00:00: 04:59 mouth in [place] 00 :00 the [facility] morning [place] for 30 days. memantine 5 2022- No [id number] 5mg Take 1 Univers mg tablet 3-12 01- tablet by ity of 00:00: 04:59 mouth in [place] 00 :00 the [facility] morning [place] for 30 days. carvediloL 2022- No [id number] 3.125mg Take 1 Univers 3.125 mg 3-12 01-26 tablet by ity o f tablet 00:00: 04:59 mouth in [place] 00 :00 the [facility] morning Branch and 1 tablet in the evening. Take with meals. Do all this for 30 days. atorvastati 2022- No [id number] 40mg Take 1 Univers n 40 mg -12 01- tablet by ity of tablet 00:00: 04:59 mouth at [place] 00 :00 bedtime Medical for 30 Branch days. donepeziL 5 2022- No [id number] 5mg Take 1 [facility] mg tablet 12-12- tablet by ity of 00:00: 04:59 mouth in [place] 00 :00 the [facility] morning [place] for 30 days. memantine 5 2022- No [id number] 5mg Take 1 Univers mg tablet -12 01- tablet by ity of 00:00: 04:59 mouth in [place] 00 :00 the [facility] morning [place] for 30 days. carvediloL 2022- No [id number] 3.125mg Take 1 Univers 3.125 mg 3-12 01- tablet by ity o f tablet 00:00: 04:59 mouth in [place] 00 :00 the [facility] morning Branch and 1 tablet in the evening. Take with meals. Do all this for 30 days. atorvastati 2022- No [id number] 40mg Take 1 Univers n 40 mg 3-12 01-26 tablet by ity of tablet 00:00: 04:59 mouth at [place] 00 :00 bedtime Medical for 30 Branch days. carvediloL 2022- No [id number] 3.125mg Take 1 Univers 3.125 mg 3-12 01-26 tablet by ity o f tablet 00:00: 04:59 mouth in [place] 00 :00 the Medical morning Branch and 1 tablet in the evening. Take with meals. Do all this for 30 days. atorvastati 2022- No [id number] 40mg Take 1 Univers n 40 mg 3-12 01-26 tablet by ity of tablet 00:: 04:59 mouth at [place] 00 :00 bedtime [facility] for 30 Branch days. carvediloL 2022- No [id number] 3.125mg Take 1 Univers 3.125 mg 3-12 01-26 tablet by ity o f tablet 00:00: 04:59 mouth in [place] 00 :00 the [facility] morning [place] and 1 tablet in the evening. Take with meals. Do all this for 30 days. atorvastati 2022- No [id number] 40mg Take 1 Univers n 40 mg -12 01- tablet by ity of tablet 00:: 04:59 mouth at [place] 00 :00 [facility] for 30 Branch days. donepeziL 5 2022- No [id number] 5mg Take 1 [facility] mg tablet -12 01- tablet by ity of 00:00: 00:00 mouth in [place] 00 :00 the [facility] morning [place] for 30 days. memantine 5 2022- No [id number] 5mg Take 1 Univers mg tablet -12 01-21 tablet by ity of 00:00: 00:00 mouth in [place] 00 :00 the [facility] morning [place] for 30 days. donepeziL 5 2022- No [id number] 5mg Take 1 Univers mg tablet -12 01-21 tablet by ity of 00:00: 00:00 mouth in [place] 00 :00 the [facility] morning [place] for 30 days. memantine 5 2022- No [id number] 5mg Take 1 Univers mg tablet -12 01-21 tablet by ity of 00:00: 00:00 mouth in [place] 00 :00 the [facility] morning [place] for 30 days. levalbutero Yes 1.25mg 1.25 mg, Univers l (XOPENEX) 3-25 Inhalation it y of nebulizer 17:00: , QID, [place] solution 00 First dose Medic al 1.25 mg (after Branch last modificati on) on [facility] 12/11/22 at 1200, Until Discontinu ed, Routine rivaroxaban 2022-0 Yes 15mg 15 mg, Univ ers (XARELTO) 3-25 Oral, ity of tablet 15 14:00: DAILY, [place] mg 00 First dose Medical on [facility] Branch 12/11/22 at 0900, Until Discontinu ed, Routine nicotine 2022-0 Yes 1{patch 1 Patch, [facility] (NICODERM) 25 } Topical, ity o f 21 mg/24 hr 13:45: Administer [place] patch 1 00 over 24 Medical Patch Hours, Branch Q24H, First dose on [facility] 12/11/22 at 0845, Until Discontinu ed, Routine ipratropium 0 Yes .5mg 0.5 mg, Uni vers (ATROVENT) 325 Inhalation ity of 0.02 % 13:00: , QID, [place] nebulizer 00 First dose Medi lucho solution on [facility] Branch 0.5 mg 12/11/22 at 0800, Until Discontinu ed carvediloL 0 Yes 3.125mg 3.125 mg, Univers (COREG) 3-25 Oral, BID ity of tablet 13:00: MEALS, [place] 3.125 mg 00 First dose Medic al on [facility] 12/11/22 at 0800, Until Discontinu ed, Routine busPIRone 0 Yes 10mg 10 mg, Univer s (BUSPAR) 3-25 Oral, BID, ity o f tablet 10 13:00: First dose [place] mg 00 on [facility] Medical 12/11/22 at Branch 0800, Until Discontinu ed, Routine methylpredn 2022- No 125mg 125 mg, U nivers isolone sod 12-11 03-25 Intravenou i ty of succ 05:00: 12:35 s, Q6H, [place] (SOLU-MEDRO 00 :32 First dose Me dical L) on [facility] Branch injection 12/11/22 at 125 [...] of 0.02 % 23:48: , Q4HPRN, [place] nebulizer 58 Starting Medica l solution on [...] by ity of tablet 12:44: mouth in [place] [address] the Medical morning Branch and 1 tablet in the evening. Take with meals. busPIRone 2023-0 Yes 10mg Take 1 Univer s 10 mg 3-18 tablet by ity of tablet 12:44: mouth in [place] [address] the Medical morning Branch and 1 tablet in the evening. busPIRone 2023-0 Yes 30mg Take 1 Univer s 30 mg 3-18 tablet by ity of tablet 12:44: mouth in [place] [address] the Medical morning Branch and 1 tablet in the evening. KCL 20 mEq 3-0 Yes Take by Univ ers tablet 3-18 mouth 2 ity of 12:44: (two) [place] [address] times Medical daily. Branch benazepriL 3-0 Yes 10mg Take 1 Unive rs 10 mg 3-18 tablet by ity of tablet 12:44: mouth in [place] 03 the Medical morning. Branch rivaroxaban 3-0 Yes 15mg Take 1 Univ ers (XARELTO) 3-18 tablet by ity o f 15 mg 12:44: mouth in [place] tablet 03 the Medical morning. Branch carvediloL [...] ity of tablet 12:44: mouth in [place] 03 the Medical morning Branch and 1 tablet in the evening. KCL 20 mEq 2023-0 Yes Take by Univ ers tablet 3-18 mouth 2 ity of 12:44: (two) [place] [address] times Medical daily. Branch benazepriL 2023-0 Yes 10mg Take 1 Unive rs 10 mg 3-18 tablet by ity of tablet 12:44: mouth in [place] 03 the Medical morning. Branch rivaroxaban 2023-0 Yes 15mg Take 1 Univ ers (XARELTO) 3-18 tablet by ity o f 15 mg 12:44: mouth in [place] tablet 03 the Medical morning. Branch carvediloL 2023-0 Yes 3.125mg Take 1 Un igor 3.125 mg 3-18 tablet by ity of tablet 12:44: mouth in [place] 03 the Medical morning Branch and 1 tablet in the evening. Take with meals. busPIRone 2023-0 Yes 10mg Take 1 Univer s 10 mg 3-18 tablet by ity of tablet 12:44: mouth in [place] 03 the Medical morning Branch and 1 tablet in the evening. busPIRone 2023-0 Yes 30mg Take 1 Univer s 30 mg 3-18 tablet by ity of tablet 12:44: mouth in [place] 03 the Medical morning Branch and 1 tablet in the evening. KCL 20 mEq 2023-0 Yes Take by Univ ers tablet 3-18 mouth 2 ity of 12:44: (two) [place] [address] times Medical daily. Branch benazepriL 2023-0 Yes 10mg Take 1 Unive rs 10 mg 3-18 tablet by ity of tablet 12:44: mouth in [place] 03 the Medical morning. Branch rivaroxaban 2022-0 Yes 15mg Take 1 Univ ers (XARELTO) 3-18 tablet by ity o f 15 mg 12:44: mouth in [place] tablet 03 the Medical morning. Branch carvediloL 2022-0 Yes 3.125mg Take 1 [facility] 3.125 mg 3-18 tablet by ity of tablet 12:44: mouth in [place] 03 the Medical morning Branch and 1 tablet in the evening. Take with meals. busPIRone 2023-0 Yes 10mg Take 1 Univer s 10 mg 3-18 tablet by ity of tablet 12:44: mouth in [place] 03 the Medical morning Branch and 1 tablet in the evening. busPIRone 2023-0 Yes 30mg Take 1 Univer s 30 mg 3-18 tablet by ity of tablet 12:44: mouth in [place] 03 the Medical morning Branch and 1 [...] the Medical morning. Branch albuterol 2022-0 Yes [id number] 2{puff} Inhale 2 Univers 90 3-18 Puffs ity of mcg/actuati 00:00: every 6 [place] on inhaler 00 (six) Medical hours as Branch needed for Wheezing or Shortness of Breath. albuterol 2022-0 Yes [id number] 2{puff} Inhale 2 Univers 90 3-18 Puffs ity of mcg/actuati 00:00: every 6 [place] on inhaler 00 (six) Medical hours as Branch needed for Wheezing or Shortness of Breath. albuterol 3-0 Yes [id number] 2{puff} Inhale 2 Univers 90 3-18 Puffs ity of mcg/actuati 00:00: every 6 [place] on inhaler 00 (six) Medical hours as Branch needed for Wheezing or Shortness of Breath. albuterol Yes [id number] 2{puff} Inhale 2 Univers 90 3-18 Puffs ity of mcg/actuati 00:00: every 6 [place] on inhaler 00 (six) Medical hours as Branch needed for Wheezing or Shortness of Breath. albuterol Yes [id number] 2{puff} Inhale 2 Univers 90 3-18 Puffs ity of mcg/actuati 00:00: every 6 [place] on inhaler 00 (six) Medical hours as Branch needed for Wheezing or Shortness of Breath. albuterol Yes [id number] 2{puff} Inhale 2 Univers 90 3-18 Puffs ity of mcg/actuati 00:00: every 6 [place] on inhaler 00 (six) Medical hours as Branch needed for Wheezing or Shortness of Breath. albuterol Yes [id number] 2{puff} Inhale 2 Univers 90 3-18 Puffs ity of mcg/actuati 00:00: every 6 [place] on inhaler 00 (six) Medical hours as Branch needed for Wheezing or Shortness of Breath. albuterol Yes [id number] 2{puff} Inhale 2 Univers 90 3-18 Puffs ity of mcg/actuati 00:00: every 6 [place] on inhaler 00 (six) Medical hours as Branch needed for Wheezing or Shortness of Breath. albuterol Yes [id number] 2{puff} Inhale 2 Univers 90 3-18 Puffs ity of mcg/actuati 00:00: every 6 [place] on inhaler 00 (six) Medical hours as Branch needed for Wheezing or Shortness of Breath. albuterol Yes [id number] 2{puff} Inhale 2 Univers 90 3-18 Puffs ity of mcg/actuati 00:00: every 6 [place] on inhaler 00 (six) Medical hours as Branch needed for Wheezing or Shortness of Breath. albuterol Yes [id number] 2{puff} Inhale 2 Univers 90 3-18 Puffs ity of mcg/actuati 00:00: every 6 [place] on inhaler 00 (six) Medical hours as Branch needed for Wheezing or Shortness of Breath. albuterol Yes [id number] 2{puff} Inhale 2 Univers 90 3-18 Puffs ity of mcg/actuati 00:00: every 6 [place] on inhaler 00 (six) Medical hours as Branch needed for Wheezing or Shortness of Breath. albuterol 2022- No [id number] 2{puff} Inhale 2 Univers 90 3-18 05-03 Puffs ity of mcg/actuati 00:00: 00:00 every 6 [place] on inhaler 00 :00 (six) Medical hours as Branch needed for Wheezing or Shortness of Breath. tiotropium 2022- No [id number] 18ug Inhale 1 Univers 18 mcg 3-18 04-18 capsule in ity of inhalation 00:00: 04:59 the [place] 00 :00 morning Medical for 30 Branch days. tiotropium 2022- No [id number] 18ug Inhale 1 Univers 18 mcg 3-18 04-18 capsule in ity of inhalation 00:00: 04:59 the [place] 00 :00 morning Medical for 30 Branch days. tiotropium 2022- No [id number] 18ug Inhale 1 Univers 18 mcg 3-18 04-18 capsule in ity of inhalation 00:00: 04:59 the [place] 00 :00 morning Medical for 30 Branch days. tiotropium 2022- No [id number] 18ug Inhale 1 Univers 18 mcg 3-18 04-18 capsule in ity of inhalation 00:00: 04:59 the [place] 00 :00 morning Medical for 30 Branch days. tiotropium 2022- No [id number] 18ug Inhale 1 Univers 18 mcg 3-18 04-18 capsule in ity of inhalation 00:00: 04:59 the [place] 00 :00 morning Medical for 30 Branch days. tiotropium 2022- No [id number] 18ug Inhale 1 Univers 18 mcg 3-18 04-18 capsule in ity of inhalation 00:00: 04:59 the [place] 00 :00 morning Medical for 30 Branch days. tiotropium 2022- No [id number] 18ug Inhale 1 Univers 18 mcg 3-18 04-18 capsule in ity of inhalation 00:00: 04:59 the [place] 00 :00 morning Medical for 30 Branch days. tiotropium 2022-2022- No [id number] 18ug Inhale 1 Univers 18 mcg 3-18 04-18 capsule in ity of inhalation 00:00: 04:59 the [place] 00 :00 morning Medical for 30 Branch days. doxycycline 2022-0 2022- No [id number] 100mg Take 1 Univers hyclate 100 3-18 03-24 capsule by i ty of mg capsule 00:00: 04:59 mouth [place] 00 :00 every 12 Medical ([facility]) Branch hours for 5 days. predniSONE 2022-0 2022- No [id number] 40mg Take 2 Univers 20 mg 3-18 03-24 tablets by ity of tablet 00:00: 04:59 mouth in [place] 00 :00 the [facility] morning Branch for 5 days. doxycycline 2022-2022- No [id number] 100mg Take 1 Univers hyclate 100 3-18 03-24 capsule by i ty of mg capsule 00:00: 04:59 mouth [place] 00 :00 every 12 Medical ([facility]) Branch hours for 5 days. predniSONE 2022-0 2022- No [id number] 40mg Take 2 Univers 20 mg 3-18 03-24 tablets by ity of tablet 00:00: 04:59 mouth in [place] 00 :00 the [facility] morning Branch for 5 days. [...] y of nebulizer 13:00: , Q4H, [place] solution 00 First dose Medic al 1.25 mg on [place] Branch 12/02/22 at 0800, Until Discontinu ed, Routine ipratropium 2022-0 Yes .5mg 0.5 mg, Uni vers (ATROVENT) 12-02 Inhalation ity of 0.02 % 13:00: , Q4H, [place] nebulizer 00 First dose Medi lucho solution [...] Push, ity of (PF)) 11:30: Q6HPRN, [place] injection 4 03 Starting Medi lucho mg [...] Oral, ity of (TYLENOL) 11:30: Q6HPRN, [place] tablet 650 03 Starting Medic al mg [...] % 12:30: 12:38 , ONCE, 1 [place] nebulizer 00 :00 dose, On Medica l [...] % 10:30: 10:38 , ONCE, 1 [place] nebulizer 00 :00 dose, On Medica l solution Wed Branch 0.5 mg 12/01/22 at 0530, MICHA[place] methylPREDN No 40mg 40 mg, Uni vers ISolone sod 12-01 Intravenou i ty of succ 10:30: 10:35 s, ONCE, 1 [place] (SOLU-MEDRO 00 :00 dose, On Medi lucho L (PF)) Wed Branch injection 12/01/22 at 40 mg 0530, MICHAEL Nebulizer & 0 Yes [id number] Use as Univers Compressor 3-15 directed ity o f For Neb 00:00: Medical Branch albuterol 0 Yes [id number] 2{puff} Inhale 2 Univers 90 3-15 Puffs ity of mcg/actuati 00:00: every 4 [place] on inhaler 00 (four) Medical hours as Branch needed for Wheezing or Shortness of Breath. Nebulizer & 0 Yes [id number] Use as Univers Compressor 3-15 directed ity o f For Neb 00:00: [place] Medical Branch albuterol 2023-0 Yes [id number] 2{puff} Inhale 2 Univers 90 3-15 Puffs ity of mcg/actuati 00:00: every 4 [place] on inhaler 00 (four) Medical hours as Branch needed for Wheezing or Shortness of Breath. Nebulizer & 2022-0 Yes [id number] Use as Univers Compressor 3-15 directed ity o f For Neb 00:00: Medical Branch albuterol 2022-0 Yes [id number] 2{puff} Inhale 2 Univers 90 3-15 Puffs ity of mcg/actuati 00:00: every 4 [place] on inhaler 00 (four) Medical hours as Branch needed for Wheezing or Shortness of Breath. Nebulizer & 0 Yes [id number] Use as Univers Compressor 3-15 directed ity o f For Neb 00:00: Medical Branch Nebulizer & 2022-0 Yes [id number] Use as Univers Compressor 3-15 directed ity o f For Neb 00:00: Medical Branch Nebulizer & 2022-0 Yes [id number] Use as Univers Compressor 3-15 directed ity o f For Neb 00:00: Medical Branch Nebulizer & 2022-0 Yes [id number] Use as Univers Compressor 3-15 directed ity o f For Neb 00:00: Medical Branch Nebulizer & 2022-0 Yes [id number] Use as Univers Compressor 3-15 directed ity o f For Neb 00:00: Medical Branch Nebulizer & 2022-0 Yes [id number] Use as Univers Compressor 3-15 directed ity o f For Neb 00:00: Medical Branch Nebulizer & 2022-0 Yes [id number] Use as Univers Compressor 3-15 directed ity o f For Neb 00:00: Medical Branch Nebulizer & 2022-0 Yes [id number] Use as Univers Compressor 3-15 directed ity o f For Neb 00:00: Medical Branch Nebulizer & 2022-0 Yes [id number] Use as Univers Compressor 3-15 directed ity o f For Neb 00:00: Medical Branch Nebulizer & 2022-0 Yes [id number] Use as Univers Compressor 3-15 directed ity o f For Neb 00:00: Medical Branch Nebulizer & 3-0 Yes [id number] Use as Univers Compressor 3-15 directed ity o f For Neb 00:00: Medical Branch Nebulizer & 2022-0 Yes [id number] Use as Univers Compressor 3-15 directed ity o f For Neb 00:00: Medical Branch Nebulizer & 3-0 Yes [id number] Use as Univers Compressor 3-15 directed ity o f For Neb 00:00: Medical Branch Nebulizer & 3-0 Yes [id number] Use as Univers Compressor 3-15 directed ity o f For Neb 00:00: Medical Branch Nebulizer & 2022-0 Yes [id number] Use as Univers Compressor 3-15 directed ity o f For Neb 00:00: Medical Branch Nebulizer & 2022-0 Yes [id number] Use as Univers Compressor 3-15 directed ity o f For Neb 00:00: Medical Branch Nebulizer & 2022-0 Yes [id number] Use as Univers Compressor 3-15 directed ity o f For Neb 00:00: Medical Branch Nebulizer & 2022-0 Yes [id number] Use as Univers Compressor 3-15 directed ity o f For Neb 00:00: Medical Branch Nebulizer & 2022-0 Yes [id number] Use as Univers Compressor 3-15 directed ity o f For Neb 00:00: Medical Branch Nebulizer & 2022-0 Yes [id number] Use as Univers Compressor 3-15 directed ity o f For Neb 00:00: Medical Branch Nebulizer & 2022-0 Yes [id number] Use as Univers Compressor 3-15 directed ity o f For Neb 00:00: Medical Branch Nebulizer & 2022-0 Yes [id number] Use as Univers Compressor 3-15 directed ity o f For Neb 00:00: Medical Branch Nebulizer & 2022-0 Yes [id number] Use as Univers Compressor 3-15 directed ity o f For Neb 00:00: Medical Branch Nebulizer & 2022-0 Yes [id number] Use as Univers Compressor 3-15 directed ity o f For Neb 00:00: Medical Branch Nebulizer & 2022-0 Yes [id number] Use as Univers Compressor 3-15 directed ity o f For Neb 00:00: Medical Branch Nebulizer & 2022-0 Yes [id number] Use as Univers Compressor 3-15 directed ity o f For Neb 00:00: Medical Branch Nebulizer & 2022-0 Yes [id number] Use as Univers Compressor 3-15 directed ity o f For Neb 00:00: Medical Branch Nebulizer & 2022-0 Yes [id number] Use as Univers Compressor 3-15 directed ity o f For Neb 00:00: Medical Branch Nebulizer & 2022-0 Yes [id number] Use as Univers Compressor 3-15 directed ity o f For Neb 00:00: Medical Branch Nebulizer & 2022-0 Yes [id number] Use as Univers Compressor 3-15 directed ity o f For Neb 00:00: Medical Branch Nebulizer & 2022-0 Yes [id number] Use as Univers Compressor 3-15 directed ity o f For Neb 00:00: Medical Branch Nebulizer & 2022-0 Yes [id number] Use as Univers Compressor 3-15 directed ity o f For Neb 00:00: Medical Branch Nebulizer & 2022-0 Yes [id number] Use as Univers Compressor 3-15 directed ity o f For Neb 00:00: Medical Branch Nebulizer & 2022-0 Yes [id number] Use as Univers Compressor 3-15 directed ity o f For Neb 00:00: Medical Branch Nebulizer & 2022-0 Yes [id number] Use as Univers Compressor 3-15 directed ity o f For Neb 00:00: Medical Branch albuterol 0 Yes [id number] 2{puff} Inhale 2 Univers 90 3-15 Puffs ity of mcg/actuati 00:00: every 4 [place] on inhaler 00 (four) Medical hours as Branch needed for Wheezing or Shortness of Breath. predniSONE 2022-0 Yes [id number] 50mg Take 1 Univers 50 mg 3-15 tablet by ity of tablet 00:00: mouth in [place] 00 the Medical morning. Branch Nebulizer & Yes [id number] Use as Univers Compressor 3-15 directed ity o f For Neb 00:00: [place] 00 Medical Branch albuterol Yes [id number] 2{puff} Inhale 2 Univers 90 3-15 Puffs ity of mcg/actuati 00:00: every 4 [place] on inhaler 00 (four) Medical hours as Branch needed for Wheezing or Shortness of Breath. albuterol 2022- No [id number] 2{puff} Inhale 2 Univers 90 3-15 03-26 Puffs ity of mcg/actuati 00:00: 00:00 every 4 [place] on inhaler 00 :00 (four) Medical hours as Branch needed for Wheezing or Shortness of Breath. predniSONE 2022- No [id number] 50mg Take 1 Univers 50 mg 12-01 03-18 tablet by ity of tablet 00:00: 00:00 mouth in [place] 00 :00 the Medical morning. Branch omeprazole 2022- No 40mg Take 40 mg Univers 40 mg 11-28-12 by mouth ity of capsule 14:11: 00:00 daily. [place] : Medical Branch carvediloL 2022- No 25mg Take 25 mg Univers 25 mg 11-28-12 by mouth 2 ity of tablet 14:11: 00:00 (two) [place] 21 :00 times Medical daily with Branch meals. busPIRone 2022- No 30mg Take 30 mg U nivers 30 mg 11-28-12 by mouth 2 ity of tablet 14:11: 00:00 (two) [place] 21 :00 times Medical daily. Branch benazepriL 2022- No 10mg Take 10 mg Univers 10 mg 11-28-12 by mouth ity of tablet 14:11: 00:00 daily. [place] 21 :00 Medical Branch hydroCHLORO 2022- No 25mg Take 25 mg Univers thiazide 25 11-28-12 by mouth ity of mg tablet 14:11: 00:00 daily. [place] 21 :00 Medical Branch levalbutero Yes .63mg 0.63 mg, U nivers l (XOPENEX) 3-12 Inhalation it y of nebulizer 13:00: , TID, [place] solution 00 First dose Medic al 0.63 mg (after Branch last modificati on) on [place] 11/28/22 at 0800, Until Discontinu ed, Routine ipratropium 2023-0 Yes .5mg 0.5 mg, Uni vers (ATROVENT) 3-11 Inhalation ity of 0.02 % 20:00: , TID, [place] nebulizer 00 First dose Medi lucho solution (after Branch 0.5 mg last modificati on) on [facility] 11/27/22 at 1400, Until Discontinu ed, Routine nicotine 3-0 Yes 1{patch 1 Patch, [facility] (NICODERM) 3 } Topical, ity o f 21 mg/24 hr 17:30: Administer [place] patch 1 00 over 24 Medical Patch Hours, Branch Q24H, First dose on [facility] 11/27/22 at 1130, Until Discontinu ed, Routine busPIRone 2022-0 Yes 10mg 10 mg, Univer s (BUSPAR) 3-11 Oral, TID, ity o f tablet 10 16:15: First dose [place] mg 00 on [facility] Medical 11/27/22 at Branch 1015, Until Discontinu ed, Routine aspirin 2023-0 Yes 81mg 81 mg, Univers chewable 11-27 Oral, ity of tablet 81 16:15: DAILY, [place] mg 00 First dose Medical on [facility] 11/27/22 at 1015, Until Discontinu ed, Routine foLIC acid 2022-0 Yes 1mg 1 mg, Univer s (FOLATE) 3 Oral, ity of tablet 1 mg 15:00: DAILY, [place] 00 First dose Medical on [facility] Branch 11/27/22 at 0900, Until Discontinu ed, Routine rivaroxaban 2023-0 Yes 20mg 20 mg, Univ ers (XARELTO) 3-11 Oral, ity of tablet 20 15:00: DAILY, [place] mg 00 First dose Medical on [facility] Branch 11/27/22 at 0900, Until Discontinu ed, Routine omeprazole 2023-0 Yes 40mg 40 mg, Unive rs (PRILOSEC) 3-11 Oral, ity of capsule 40 15:00: DAILY, [place] mg 00 First dose Medical on [facility] 11/27/22 at 0900, Until Discontinu ed predniSONE 2022- No 40mg 40 mg, Univ ers (DELTASONE) 11-2716 Oral, ity of tablet 40 15:00: 13:59 DAILY, 5 [place] as mg 00 :00 doses, Medical First dose Branch on [facility] 11/27/22 at 0900, Last dose on Tue12/01/22 at 0900, Routine carvediloL Yes 25mg 25 mg, Unive rs (COREG) 11-27 Oral, BID ity of tablet 25 14:00: MEALS, [place] mg 00 First dose Medical on [facility] 11/27/22 at 0800, Until Discontinu ed, Routine levalbutero 2022- No .31mg 0.31 mg, Univers l (XOPENEX) 11-2712 Inhalation i ty of nebulizer 14:00: 12:33 , TID, [place] solution 00 :58 First dose Medic al 0.31 mg on [facility] 11/27/22 at 0800, Until Discontinu ed, Routine ipratropium 2022- No .5mg 0.5 mg, Un igor (ATROVENT) 11-27 Inhalation it y of 0.02 % 14:00: 18:48 , QID, [place] nebulizer 00 :56 First dose Medi lucho solution on [facility] 0.5 mg 11/27/22 at 0800, Until Discontinu ed, Routine thiamine Yes 100mg 100 mg, Unive rs (VITAMIN 11-27 Oral, ity of B1) tablet 08:30: DAILY, [place] 100 mg 00 First dose Medical (after Branch last modificati on) on [facility] 11/27/22 at 0230, Until Discontinu ed, Routine LORazepam Yes 1mg 1 mg, Slow Un igor (ATIVAN) 11-27 IV Push, ity of injection 1 08:16: Q4HPRN, [place] mg 19 Starting Medical on [facility] 11/27/22 at 0216, Until Discontinu ed, [...] at 2000, Routine thiamine 3-0 2022- No [id number] 100mg Take 1 [facility] 100 mg 2-24 -27 tablet by ity of tablet 00:00: 04:59 mouth in [place] 00 :00 [facility] for 30 days. thiamine 2022-0 3- No [id number] 100mg Take 1 [facility] 100 mg 2-24 -27 tablet by ity of tablet 00:00: 04:59 mouth in [place] 00 :00 [facility] for 30 days. thiamine 202-0 2023- No [id number] 100mg Take 1 [facility] 100 mg 2-24 -27 tablet by ity of tablet 00:00: 04:59 mouth in [place] 00 :00 [facility] for 30 days. thiamine 2023-0 2023- No [id number] 100mg Take 1 [facility] 100 mg 2-24 -27 tablet by ity of tablet 00:00: 04:59 mouth in [place] 00 :00 [facility] for 30 days. thiamine 2023-0 2023- No [id number] 100mg Take 1 [facility] 100 mg 2-24 -27 tablet by ity of tablet 00:00: 04:59 mouth in [place] 00 :00 [facility] for 30 days. thiamine 2023-0 2023- No [id number] 100mg Take 1 Univers 100 mg 2-24 03-12 tablet by ity of tablet 00:00: 00:00 mouth in [place] 00 :00 the [facility] for 30 days. thiamine 2023-0 Yes 100mg 100 mg, Unive rs (VITAMIN 2-23 Oral, ity of B1) tablet 15:00: DAILY, [place] 100 mg 00 First dose Medical on [facility] Branch 11/11/22 at 0900, Until Discontinu ed, Routine omeprazole 2023-0 Yes 40mg Take 40 mg U nivers 40 mg 2-23 by mouth ity of capsule 13:41: daily. [address] carvediloL 2023-0 Yes 25mg Take 25 mg U nivers 25 mg 2-23 by mouth 2 ity of tablet 13:41: (two) [place] [address] times Medical daily with Branch meals. busPIRone 2023-0 Yes 30mg Take 30 mg Un igor 30 mg 2-23 by mouth 2 ity of tablet 13:41: (two) [place] [address] times Medical daily. Branch benazepriL 2023-0 Yes 10mg Take 10 mg U nivers 10 mg 2-23 by mouth ity of tablet 13:41: daily. [address] hydroCHLORO 2023-0 Yes 25mg Take 25 mg Univers thiazide 25 2-23 by mouth ity of mg tablet 13:41: daily. [address] omeprazole 2023-0 Yes 40mg Take 40 mg U nivers 40 mg 2-23 by mouth ity of capsule 13:41: daily. [address] carvediloL 2023-0 Yes 25mg Take 25 mg U nivers 25 mg 2-23 by mouth 2 ity of tablet 13:41: (two) [place] [address] times Medical daily with Branch meals. busPIRone 2023-0 Yes 30mg Take 30 mg [place] 30 mg 2-23 by mouth 2 ity of tablet 13:41: (two) [place] [address] times Medical daily. Branch benazepriL 2023-0 Yes 10mg Take 10 mg U nivers 10 mg 2-23 by mouth ity of tablet 13:41: daily. [address] hydroCHLORO 2023-0 Yes 25mg Take 25 mg Univers thiazide 25 2-23 by mouth ity of mg tablet 13:41: daily. [address] omeprazole 2023-0 Yes 40mg Take 40 mg U nivers 40 mg 2-23 by mouth ity of capsule 13:41: daily. [address] carvediloL 2023-0 Yes 25mg Take 25 mg U nivers 25 mg 2-23 by mouth 2 ity of tablet 13:41: (two) [place] [address] times Medical daily with Branch meals. busPIRone 2023-0 Yes 30mg Take 30 mg [place] 30 mg 2-23 by mouth 2 ity of tablet 13:41: (two) [place] [address] times Medical daily. Branch benazepriL 2023-0 Yes 10mg Take 10 mg U nivers 10 mg 2-23 by mouth ity of tablet 13:41: daily. [address] hydroCHLORO 2023-0 Yes 25mg Take 25 mg Univers thiazide 25 2-23 by mouth ity of mg tablet 13:41: daily. [address] omeprazole 2023-0 Yes 40mg Take 40 mg U nivers 40 mg 2-23 by mouth ity of capsule 13:41: daily. [address] carvediloL 2023-0 Yes 25mg Take 25 mg U nivers 25 mg 2-23 by mouth 2 ity of tablet 13:41: (two) [place] [address] times Medical daily with Branch meals. busPIRone 2023-0 Yes 30mg Take 30 mg Un [place] 30 mg 2-23 by mouth 2 ity of tablet 13:41: (two) [place] [address] times Medical daily. Branch benazepriL 2023-0 Yes 10mg Take 10 mg U nivers 10 mg 2-23 by mouth ity of tablet 13:41: daily. [address] hydroCHLORO 2023-0 Yes 25mg Take 25 mg Univers thiazide 25 2-23 by mouth ity of mg tablet 13:41: daily. [address] omeprazole 2023-0 Yes 40mg Take 40 mg U nivers 40 mg 2-23 by mouth ity of capsule 13:41: daily. [address] carvediloL 2023-0 Yes 25mg Take 25 mg U nivers 25 mg 2-23 by mouth 2 ity of tablet 13:41: (two) [place] [address] times Medical daily with Branch meals. busPIRone 2023-0 Yes 30mg Take 30 mg Un [place] 30 mg 2-23 by mouth 2 ity of tablet 13:41: (two) [place] [address] times Medical daily. Branch benazepriL 2023-0 Yes 10mg Take 10 mg U nivers 10 mg 2-23 by mouth ity of tablet 13:41: daily. [address] Branch hydroCHLORO 0 Yes 25mg Take 25 mg Univers thiazide 25 2-23 by mouth ity of mg tablet 13:41: daily. [address] foLIC acid 0 2022- No 1mg 1 mg, Unive rs (FOLATE) 2-11 11- Oral, ity of tablet 1 mg 00:15: 00:26 ONCE, 1 [place] 00 :00 dose, On Medical Wed Branch 11/10/22 at 1815, Routine benzocaine- 0 Yes [id number] 1{lozen Take 1 Univers menthoL 2-23 ge} Lozenge by ity of lozenge 00:00: mouth [place] [id number] every 4 Medical (four) Branch hours as needed for Sore throat. budesonide- Yes [id number] 2{puff} Inhale 2 Univers formoteroL 2-23 Puffs in ity o f 80-4.5 00:00: the [facility]/actuati morning Medic al on inhaler and 2 Branch Puffs in the evening. benzocaine- Yes [id number] 1{lozen Take 1 Univers menthoL 2-23 ge} Lozenge by ity of lozenge 00:00: mouth [place] 00 every 4 Medical (four) Branch hours as needed for Sore throat. budesonide- Yes [id number] 2{puff} Inhale 2 Univers formoteroL 2-23 Puffs in ity o f 80-4.5 00:00: the [facility]/actuati morning Medic al on inhaler and 2 Branch Puffs in the evening. benzocaine- Yes [id number] 1{lozen Take 1 Univers menthoL 2-23 ge} Lozenge by ity of lozenge 00:00: mouth [place] every 4 Medical (four) Branch hours as needed for Sore throat. budesonide- Yes [id number] 2{puff} Inhale 2 Univers formoteroL 2-23 Puffs in ity o f 80-4.5 00:00: the [place] mcg/actuati morning Medic al on inhaler and 2 Branch Puffs in the evening. benzocaine- 2022-0 Yes [id number] 1{lozen Take 1 Univers menthoL 2-23 ge} Lozenge by ity of lozenge 00:00: mouth [place] 00 every 4 Medical (four) Branch hours as needed for Sore throat. budesonide- 2022-0 Yes [id number] 2{puff} Inhale 2 Univers formoteroL 2-23 Puffs in ity o f 80-4.5 00:00: the [place] mcg/actuati 00 morning Medic al on inhaler and 2 Branch Puffs in the evening. benzocaine- 2022-0 Yes [id number] 1{lozen Take 1 Univers menthoL 2-23 ge} Lozenge by ity of lozenge 00:00: mouth [place] 00 every 4 Medical (four) Branch hours as needed for Sore throat. budesonide- 2022-0 Yes [id number] 2{puff} Inhale 2 Univers formoteroL 2-23 Puffs in ity o f 80-4.5 00:00: the [place] mcg/actuati 00 morning Medic al on inhaler and 2 Branch Puffs in the evening. benzocaine- 0 2022- No [id number] 1{lozen Take 1 Univers menthoL 2-23 03-12 ge} Lozenge by ity o f lozenge 00:00: 00:00 mouth [place] 00 :00 every 4 Medical (four) Branch hours as needed for Sore throat. budesonide- 0 2022- No [id number] 2{puff} Inhale 2 Univers formoteroL 2-23 03-12 Puffs in ity of 80-4.5 00:00: 00:00 the [place] mcg/actuati 00 :00 morning Medic al on inhaler and 2 Branch Puffs in the evening. sodium 2022-2022- No [id number] 1g Take 1 Uni vers chloride 1 2-23 03-06 tablet by ity of gram tablet 00:00: 05:59 mouth in [place] 00 :00 the Medical morning Branch and 1 tablet at noon and 1 tablet in the evening. Take with meals. Do all this for 10 days. sodium 2022-0 2022- No [id number] 1g Take 1 Uni vers chloride 1 2-23 03-06 tablet by ity of gram tablet 00:00: 05:59 mouth in [place] 00 :00 the [facility] and 1 tablet at noon and 1 tablet in the evening. Take with meals. Do all this for 10 days. sodium 2023-0 3- No [id number] 1g Take 1 Uni vers chloride 1 11-11- tablet by ity of gram tablet 00:00: 05:59 mouth in [place] 00 :00 the [facility] and 1 tablet at noon and 1 tablet in the evening. Take with meals. Do all this for 10 days. sodium 2023-0 2023- No [id number] 1g Take 1 Uni vers chloride 1 11-11- tablet by ity of gram tablet 00:00: 05:59 mouth in [place] 00 :00 the [facility] and 1 tablet at noon and 1 tablet in the evening. Take with meals. Do all this for 10 days. levoFLOXaci 2023-0 2023- No [id number] 750mg Take 1 Univers n 750 mg 11-11 tablet by ity o f tablet 00:00: 05:59 mouth [place] 00 :00 every 24 Medical ([facility] ur) hours for 5 days. levoFLOXaci 2023-0 3- No [id number] 750mg Take 1 Univers n 750 mg 11-11 tablet by ity o f tablet 00:00: 05:59 mouth [place] 00 :00 every 24 Medical ([facility] ur) hours for 5 days. predniSONE 2023-0 2023- No [id number] 40mg Take 2 Univers 20 mg 11-11- tablets by ity of tablet 00:00: 05:59 mouth in [place] 00 :00 [facility] for 3 days. predniSONE 2023-0 2023- No [id number] 40mg Take 2 Univers 20 mg 2-11 11-27 tablets by ity of tablet 00:00: 05:59 mouth in [place] 00 :00 [facility] for 3 days. sodium 3-0 Yes 1g 1 g, Oral, Unive rs chloride 2- TID MEALS, ity o f tablet 1 g 23:15: First dose [place] 00 on Tue11/10/22 at [place] 1715, Until Discontinu ed, Routine benzocaine- 2022-0 Yes 1{lozen 1 Lozenge, Univers menthoL 2-22 ge} Oral, ity of (CEPACOL 20:49: Q4HPRN, [place] SORE THROAT 25 Starting Medi lucho (JACINTO-MEN)) [...] of succ 15:00: 14:59 s, DAILY, [place] (SOLU-MEDRO 00 :00 4 doses, Medi lucho [...] First dose [place] mg 00 on [facility] 11/09/22 at Branch 1999, Until Discontinu ed, Routine carvediloL 2022-0 Yes 25mg 25 mg, Unive rs (COREG) - Oral, BID ity of tablet 25 23:00: MEALS, [place] mg 00 First dose Medical on [facility] 11/09/22 at 1700, Until Discontinu ed, Routine ipratropium 2022-0 Yes .5mg 0.5 mg, Uni vers (ATROVENT) 2-21 Inhalation ity of 0.02 % 22:00: , Q4H, [place] nebulizer 00 First dose Medi lucho solution on [facility] 0.5 mg 11/09/22 at 1600, Until Discontinu ed, Routine albuterol 2022-0 Yes 2.5mg 2.5 mg, Univ ers (PROVENTIL) 2-21 Inhalation it y of 2.5 mg /3 22:00: , Q4H, [place] mL (0.083 00 First dose Medi lucho %) on [facility] nebulizer 11/09/22 at solution 1600, 2.5 mg [...] Push, ity of (PF)) 20:04: Q6HPRN, [place] injection 4 17 Starting Medi lucho mg on Branch 11/09/22 at 1404, Until Discontinu ed, Routine, Nausea and Vomiting (N/V) acetaminoph 2022-0 Yes 650mg 650 mg, Un igor en 11-09 Oral, ity of (TYLENOL) 20:04: Q6HPRN, [place] tablet 650 07 Starting Medic al mg on [facility] Branch 11/09/22 at 1404, Until Discontinu ed, Routine, Pain (scale 1-3), Temp > 38 C albuterol 2022-0 2023- No 5mg 5 mg, Univer s (PROVENTIL) 11-09 Inhalation i ty of 2.5 mg /3 14:00: 14:05 , ONCE, 1 [place] mL (0.083 00 :00 dose, On Medica l %) [facility] nebulizer 11/09/22 at solution 5 0800, STAT mg albuterol 2022-0 2022- No 10mg 10 mg, Unive rs (PROVENTIL) 11-09 Inhalation i ty of 2.5 mg /3 11:00: 11:04 , ONCE, 1 [place] mL (0.083 00 :00 dose, On Medica l %) [facility] nebulizer 11/09/22 at solution 10 0500, STAT mg ipratropium 2022-0 2022- No .5mg 0.5 mg, Un igor (ATROVENT) 11-09 Inhalation it y of 0.02 % 09:00: 08:59 , ONCE, 1 [place] nebulizer 00 :00 dose, On Medica l solution [facility] Branch 0.5 mg 11/09/22 at 0300, MICHAEL [...] 0145, STAT 2.5 mg cephALEXin 2020-0 Yes [id number] 500mg Take 1 Univers (KEFLEX) 05-22 capsule by ity o f 500 mg 00:00: mouth 4 [place] capsule 00 (four) Medical times Branch daily. cephALEXin 2020-0 Yes [id number] 500mg Take 1 Univers (KEFLEX) 05-22 capsule by ity o f 500 mg 00:00: mouth 4 [place] capsule 00 (four) Medical times Branch daily. cephALEXin 2020-0 2022- No [id number] 500mg Take 1 Univers (KEFLEX) 9-03 02-23 capsule by ity of 500 mg 00:00: 00:00 mouth 4 [place] capsule 00 :00 (four) Medical times Branch daily. cefTRIAXone 2020-0 202- No 1000mg 1,000 mg, Univers (ROCEPHIN) 12-12-26 IV ity of 1,000 mg in 19:00: 18:23 Piggyback, [place] NaCl 0.9% 00 :00 ONCE, 1 Medical (NS) 50 mL dose, Fri Bran ch MINI-BAG 12/12/20 at 1400, 50 mL
Reas on for Anti-Infec tive: Empiric Therapy for Suspected Infection< br>Empiric Therapy Site: Urine
D uration of therapy: 72 hours carvediloL 2020-0 Yes 25mg Take 25 mg U nivers 25 mg 3-26 by mouth 2 ity of tablet 18:38: (two) [address] daily with Branch meals. busPIRone 2020-0 Yes 30mg Take 30 mg Un igor 30 mg 3-26 by mouth 2 ity of tablet 18:38: (two) [address] daily[address] Branch benazepriL 2020-0 Yes 10mg Take 10 mg U nivers 10 mg 3-26 by mouth ity of tablet 18:38: daily. [address] hydroCHLORO 2020-0 Yes 25mg Take 25 mg Univers thiazide 25 3-26 by mouth ity of mg tablet 18:38: daily. [address] carvediloL 2020-0 Yes 25mg Take 25 mg U nivers 25 mg 3-26 by mouth 2 ity of tablet 18:38: (two) [address] daily with Branch meals. busPIRone 2020-0 Yes 30mg Take 30 mg Un igor 30 mg 3-26 by mouth 2 ity of tablet 18:38: (two) [address] daily[address] Branch benazepriL 2020-0 Yes 10mg Take 10 mg U nivers 10 mg 3-26 by mouth ity of tablet 18:38: daily. [address] hydroCHLORO 2020-0 Yes 25mg Take 25 mg Univers thiazide 25 3-26 by mouth ity of mg tablet 18:38: daily. [address] carvediloL 2020-0 Yes 25mg Take 25 mg U nivers 25 mg 3-26 by mouth 2 ity of tablet 18:38: (two) [place] [id number] times Medical daily with Branch meals. busPIRone 2021-0 Yes 30mg Take 30 mg Un igor 30 mg 3-26 by mouth 2 ity of tablet 18:38: (two) [place] 04 times Medical daily. Branch benazepriL 2021-0 Yes 10mg Take 10 mg U nivers 10 mg 3-26 by mouth ity of tablet 18:38: daily. [address] hydroCHLORO 2021-0 Yes 25mg Take 25 mg Univers thiazide 25 3-26 by mouth ity of mg tablet 18:38: daily. [address] carvediloL 2021-0 Yes 25mg Take 25 mg U nivers 25 mg 3-26 by mouth 2 ity of tablet 18:38: (two) [place] [id number] times Medical daily with Branch meals. busPIRone 2021-0 Yes 30mg Take 30 mg Un igor 30 mg 3-26 by mouth 2 ity of tablet 18:38: (two) [place] [address] times Medical daily. Branch benazepriL 2021-0 Yes 10mg Take 10 mg U nivers 10 mg 3-26 by mouth ity of tablet 18:38: daily. [address] hydroCHLORO 2021-0 Yes 25mg Take 25 mg Univers thiazide 25 3-26 by mouth ity of mg tablet 18:38: daily. [address] carvediloL 2021-0 Yes 25mg Take 25 mg U nivers 25 mg 3-26 by mouth 2 ity of tablet 18:38: (two) [place] [address] times Medical daily with Branch meals. busPIRone 2021-0 Yes 30mg Take 30 mg Un igor 30 mg 3-26 by mouth 2 ity of tablet 18:38: (two) [place] 04 times Medical daily. Branch benazepriL 2021-0 Yes 10mg Take 10 mg U nivers 10 mg 3-26 by mouth ity of tablet 18:38: daily. [address] hydroCHLORO 2021-0 Yes 25mg Take 25 mg Univers thiazide 25 3-26 by mouth ity of mg tablet 18:38: daily. [address] carvediloL 2021-0 Yes 25mg Take 25 mg U nivers 25 mg 3-26 by mouth 2 ity of tablet 18:38: (two) [place] [id number] times Medical daily with Branch meals. busPIRone 2021-0 Yes 30mg Take 30 mg Un igor 30 mg 3-26 by mouth 2 ity of tablet 18:38: (two) [place] [address] times Medical daily. Branch benazepriL 2021-0 Yes 10mg Take 10 mg U nivers 10 mg 3-26 by mouth ity of tablet 18:38: daily. [address] hydroCHLORO 2021-0 Yes 25mg Take 25 mg Univers thiazide 25 3-26 by mouth ity of mg tablet 18:38: daily. [address] carvediloL 2021-0 Yes 25mg Take 25 mg U nivers 25 mg 3-26 by mouth 2 ity of tablet 18:38: (two) [place] [address] times Medical daily with Branch meals. busPIRone 2021-0 Yes 30mg Take 30 mg Un [place] 30 mg 3-26 by mouth 2 ity of tablet 18:38: (two) [place] [address] times Medical daily. Branch benazepriL 2021-0 Yes 10mg Take 10 mg U nivers 10 mg 3-26 by mouth ity of tablet 18:38: daily. [address] hydroCHLORO 2021-0 Yes 25mg Take 25 mg Univers thiazide 25 3-26 by mouth ity of mg tablet 18:38: daily. [address] carvediloL 2021-0 Yes 25mg Take 25 mg U nivers 25 mg 3-26 by mouth 2 ity of tablet 18:38: (two) [place] [address] times Medical daily with Branch meals. busPIRone 2021-0 Yes 30mg Take 30 mg Un [place] 30 mg 3-26 by mouth 2 ity of tablet 18:38: (two) [place] [address] times Medical daily. Branch benazepriL 2021-0 Yes 10mg Take 10 mg U nivers 10 mg 3-26 by mouth ity of tablet 18:38: daily. [address] hydroCHLORO 2021-0 Yes 25mg Take 25 mg Univers thiazide 25 3-26 by mouth ity of mg tablet 18:38: daily. [address] carvediloL 2021-0 Yes 25mg Take 25 mg U nivers 25 mg 3-26 by mouth 2 ity of tablet 18:38: (two) [place] [address] times Medical daily with Branch meals. busPIRone 2021-0 Yes 30mg Take 30 mg Un igor 30 mg 3-26 by mouth 2 ity of tablet 18:38: (two) [place] 04 times Medical daily. Branch benazepriL 1-0 Yes 10mg Take 10 mg U nivers 10 mg 3-26 by mouth ity of tablet 18:38: daily. [address] hydroCHLORO 2020-0 Yes 25mg Take 25 mg Univers thiazide 25 3-26 by mouth ity of mg tablet 18:38: daily. [address] carvediloL 2020-0 Yes 25mg Take 25 mg U nivers 25 mg 3-26 by mouth 2 ity of tablet 18:38: (two) [place] times Medical daily with Branch meals. busPIRone 1-0 Yes 30mg Take 30 mg Un igor 30 mg 3-26 by mouth 2 ity of tablet 18:38: (two) [place] [address] times Medical daily. Branch benazepriL 2020-0 Yes 10mg Take 10 mg U nivers 10 mg 3-26 by mouth ity of tablet 18:38: daily. [address] hydroCHLORO 2020-0 Yes 25mg Take 25 mg Univers thiazide 25 3-26 by mouth ity of mg tablet 18:38: daily. [address] carvediloL 2020-0 Yes 25mg Take 25 mg U nivers 25 mg 3-26 by mouth 2 ity of tablet 18:38: (two) [place] [address] times Medical daily with Branch meals. busPIRone 1-0 Yes 30mg Take 30 mg Un igor 30 mg 3-26 by mouth 2 ity of tablet 18:38: (two) [place] [address] times Medical daily. Branch benazepriL 1-0 Yes 10mg Take 10 mg U nivers 10 mg 3-26 by mouth ity of tablet 18:38: daily. [address] hydroCHLORO 1-0 Yes 25mg Take 25 mg Univers thiazide 25 3-26 by mouth ity of mg tablet 18:38: daily. [address] carvediloL 2021-0 Yes 25mg Take 25 mg U nivers 25 mg 3-26 by mouth 2 ity of tablet 18:38: (two) [place] [address] times Medical daily with Branch meals. busPIRone 2021-0 Yes 30mg Take 30 mg Un igor 30 mg 3-26 by mouth 2 ity of tablet 18:38: (two) [place] 04 times Medical daily. Branch benazepriL 2021-0 Yes 10mg Take 10 mg U nivers 10 mg 3-26 by mouth ity of tablet 18:38: daily. [address] hydroCHLORO 2021-0 Yes 25mg Take 25 mg Univers thiazide 25 3-26 by mouth ity of mg tablet 18:38: daily. [address] carvediloL 2021-0 Yes 25mg Take 25 [...] by mouth ity of tablet 18:38: daily. [address] hydroCHLORO 2021-0 Yes 25mg Take 25 mg Univers thiazide 25 3-26 by mouth ity of mg tablet 18:38: daily. [address] carvediloL 2021-0 Yes 25mg Take 25 mg U nivers 25 mg 3-26 by mouth 2 ity of tablet 18:38: (two) [place] [address] times Medical daily with Branch meals. busPIRone 2021-0 Yes 30mg Take 30 mg Un igor 30 mg 3-26 by mouth 2 ity of tablet 18:38: (two) [place] 04 times Medical daily. Branch benazepriL 2021-0 Yes 10mg Take 10 mg U nivers 10 mg 3-26 by mouth ity of tablet 18:38: daily. [address] hydroCHLORO 2021-0 Yes 25mg Take 25 mg Univers thiazide 25 3-26 by mouth ity of mg tablet 18:38: daily. [address] carvediloL 2021-0 Yes 25mg Take 25 mg U nivers 25 mg 3-26 by mouth 2 ity of tablet 18:38: (two) [place] [address] times Medical daily with Branch meals. busPIRone 2021-0 Yes 30mg Take 30 mg Un igor 30 mg 3-26 by mouth 2 ity of tablet 18:38: (two) [place] 04 times Medical daily. [place] benazepriL Yes 10mg Take 10 mg U nivers 10 mg - by mouth ity of tablet 18:38: daily. [address] Branch hydroCHLORO Yes 25mg Take 25 mg Univers thiazide 25 -26 by mouth ity of mg tablet 18:38: daily. [address] Branch iohexol 2020- No [id number] 120mL 120 mL, Univers (OMNIPAQUE 12-12 Intravenou it y of 350 17:30: 17:21 s, ONCE, 1 [place] BULK-150 00 :00 dose, Fri Medica l mL) 12/12/20 at Branch injection 1230, 120 mL Routine aspirin 81 2020- No 81mg Take 81 mg Univers mg EC 12-12 by mouth ity of tablet 16:57: 00:00 daily. [place] 40 :00 [facility] Branch varenicline 2020- No 1mg Take 1 mg Univers (CHANTIX) 1 12-12 by mouth 2 i ty of mg tablet 16:57: 00:00 (two) [place] 18 :00 times Medical daily. Branch predniSONE 2020- No 20mg Take 20 mg Univers 20 mg 12-12 by mouth ity of tablet 16:57: 00:00 daily. [place] 12 :00 Medical Branch fluticasone 2020- No 1{puff} Inhale 1 Univers -umeclidin- 12-12 Puff ity of vilanter 16:56: 00:00 daily. [place] (TRELEGY 46 :00 Medical ELLIPTA) Branch 100-62.5-25 mcg DsDv cefpodoxime Yes [id number] 100mg Take 1 Univers 100 mg -26 tablet by ity of tablet 00:00: mouth 2 [place] 00 (two) Medical times [place] daily. cefpodoxime 0 Yes [id number] 100mg Take 1 Univers 100 mg 3-26 tablet by ity of tablet 00:00: mouth 2 [place] 00 (two) Medical times [place] daily. cefpodoxime 0 Yes [id number] 100mg Take 1 Univers 100 mg -26 tablet by ity of tablet 00:00: mouth 2 [place] 00 (two) Medical times Branch daily. cefpodoxime 2021-0 Yes [id number] 100mg Take 1 Univers 100 mg 3-26 tablet by ity of tablet 00:00: mouth [place] (two) Medical times Branch daily. cefpodoxime 2021-0 Yes [id number] 100mg Take 1 Univers 100 mg 3-26 tablet by ity of tablet 00:00: mouth [place] (two) Medical times Branch daily. cefpodoxime 2021-0 Yes [id number] 100mg Take 1 Univers 100 mg 3-26 tablet by ity of tablet 00:00: mouth [place] (two) Medical times Branch daily. cefpodoxime 2021-0 Yes [id number] 100mg Take 1 Univers 100 mg 3-26 tablet by ity of tablet 00:00: mouth [place] ([facility]) Medical times Branch daily. cefpodoxime 2021-0 Yes [id number] 100mg Take 1 Univers 100 mg 3-26 tablet by ity of tablet 00:00: mouth [place] ([facility]) Medical times Branch daily. cefpodoxime 2021-0 Yes [id number] 100mg Take 1 Univers 100 mg 3-26 tablet by ity of tablet 00:00: mouth [place] (two) Medical times Branch daily. cefpodoxime 2021-0 Yes [id number] 100mg Take 1 Univers 100 mg 3-26 tablet by ity of tablet 00:00: mouth [place] (two) Medical times Branch daily. cefpodoxime 2021-0 Yes [id number] 100mg Take 1 Univers 100 mg 3-26 tablet by ity of tablet 00:00: mouth [place] ([facility]) Medical times Branch daily. cefpodoxime 2021-0 Yes [id number] 100mg Take 1 Univers 100 mg 3-26 tablet by ity of tablet 00:00: mouth [place] (two) Medical times Branch daily. cefpodoxime 2021-0 Yes [id number] 100mg Take 1 Univers 100 mg 3-26 tablet by ity of tablet 00:00: mouth [place] ([facility]) Medical times Branch daily. cefpodoxime 2021-0 Yes [id number] 100mg Take 1 Univers 100 mg 3-26 tablet by ity of tablet 00:00: mouth [place] (two) Medical times Branch daily. cefpodoxime 2021-0 Yes [id number] 100mg Take 1 Univers 100 mg - tablet by ity of tablet 00:00: mouth 2 [place] 00 (two) Medical times Branch daily. cefpodoxime 2022- No [id number] 100mg Take 1 Univers 100 mg 3-14 11- tablet by ity of tablet 00:00: 00:00 mouth 2 [place] 00 :00 (two) Medical times Branch daily. cefpodoxime 0 2020- No [id number] 100mg Take 1 Univers 100 mg 3-12 12- tablet by ity of tablet 00:00: 00:00 mouth 2 [place] 00 :00 (two) Medical times Branch daily for 7 days. XARELTO 15 2020-0 Yes Univers mg tablet -28 ity of 00:00: [place] Medical Branch XARELTO 15 2020-0 Yes Univers mg tablet -28 ity of 00:00: [place] Medical Branch XARELTO 15 2020-0 Yes Univers mg tablet -28 ity of 00:00: [place] Medical Branch XARELTO 15 2020-0 Yes Univers mg tablet - ity of 00:00: [place] Medical Branch XARELTO 15 2020-0 Yes Univers mg tablet -28 ity of 00:00: [place] Medical Branch XARELTO 15 2020-0 Yes Univers mg tablet - ity of 00:00: [place] Medical Branch XARELTO 15 2020-0 Yes Univers mg tablet -28 ity of 00:00: [place] Medical Branch XARELTO 15 2020-0 Yes Univers mg tablet -28 ity of 00:00: [place] Medical Branch XARELTO 15 2020-0 Yes Univers mg tablet -28 ity of 00:00: [place] Medical Branch XARELTO 15 2020-0 Yes Univers mg tablet -28 ity of 00:00: [place] [facility] XARELTO 15 2020-0 Yes Univers mg tablet -28 ity of 00:00: [place] [facility] XARELTO 15 2020-0 Yes Univers mg tablet -28 ity of 00:00: [place] [address] Medical Branch XARELTO 15 2020-0 Yes Univers mg tablet -28 ity of 00:00: [place] [facility] XARELTO 15 2020-0 Yes Univers mg tablet 1-28 ity of 00:00: [place] 00 [facility] XARELTO 15 2020-0 Yes Univers mg tablet 10-16 ity of 00:00: [place] 00 [facility] Branch XARELTO 15 2020-0 Yes Univers mg tablet 10-16 ity of 00:00: [place] 00 [facility] Branch XARELTO 15 2020-0 Yes Univers mg tablet 10-16 ity of 00:00: [place] [address] Medical Branch XARELTO 15 2020-0 Yes Univers mg tablet 10-16 ity of 00:00: [place] 00 Medical Branch XARELTO 15 2020-0 Yes Univers mg tablet 10-16 ity of 00:00: [place] [address] Medical Branch XARELTO 15 2020-0 Yes Univers mg tablet 10-16 ity of 00:00: [place] [address] Medical Branch XARELTO 15 2020-0 Yes Univers mg tablet 10-16 ity of 00:00: [place] [address] Medical Branch XARELTO 15 2020-0 Yes Univers mg tablet 10-16 ity of 00:00: [place] [address] Medical Branch XARELTO 15 2020-0 Yes Univers mg tablet 10-16 ity of 00:00: [place] [address] Medical Branch XARELTO 15 2020-0 3- No Univer s mg tablet 10-1612 ity of 00:00: 00:00 [place] 00 :00 [facility] Branch omeprazole 2018- Yes 40mg Take 40 mg U nivers 40 mg 2-10 by mouth ity of capsule 00:11: daily. [address] omeprazole 2018- Yes 40mg Take 40 mg U nivers 40 mg 2-10 by mouth ity of capsule 00:11: daily. [address] varenicline 2018- Yes 1mg Take 1 mg U nivers (CHANTIX) 1 2-10 by mouth 2 it y of mg tablet 00:11: (two) [place] [id number] times Medical daily. Branch predniSONE 2018- Yes 20mg Take 20 mg U nivers 20 mg 2-10 by mouth ity of tablet 00:11: daily. [address] omeprazole 2018- Yes 40mg Take 40 mg U nivers 40 mg 2-10 by mouth ity of capsule 00:11: daily. [address] fluticasone 2018- Yes 1{puff} Inhale 1 Univers -umeclidin- 2-10 Puff ity of vilanter 00:11: daily. [address]) Branch 100-62.5-25 mcg DsDv aspirin 81 2018-09 Yes 81mg Take 81 mg U nivers mg EC 2-10 by mouth ity of tablet 00:11: daily. [address] varenicline 2018-09 Yes 1mg Take 1 mg U nivers (CHANTIX) 1 2-10 by mouth 2 it y of mg tablet 00:11: (two) [address] daily. Branch predniSONE 2018-09 Yes 20mg Take 20 mg U nivers 20 mg 2-10 by mouth ity of tablet 00:11: daily. [address] omeprazole 2018-09 Yes 40mg Take 40 mg U nivers 40 mg 2-10 by mouth ity of capsule 00:11: daily. [address] fluticasone 2018-09 Yes 1{puff} Inhale 1 Univers -umeclidin- 2-10 Puff ity of vilanter 00:11: daily. [address]) Branch 100-62.5-25 mcg DsDv aspirin 81 2018-09 Yes 81mg Take 81 mg U nivers mg EC 2-10 by mouth ity of tablet 00:11: daily. [address] varenicline 2018-09 Yes 1mg Take 1 mg U nivers (CHANTIX) 1 2-10 by mouth 2 it y of mg tablet 00:11: (two) [address] daily. Branch predniSONE 2018-09 Yes 20mg Take 20 mg U nivers 20 mg 2-10 by mouth ity of tablet 00:11: daily. [address] omeprazole 2018-09 Yes 40mg Take 40 mg U nivers 40 mg 2-10 by mouth ity of capsule 00:11: daily. [address] fluticasone 2018-09 Yes 1{puff} Inhale 1 Univers -umeclidin- 2-10 Puff ity of vilanter 00:11: daily. [place] ([address]) Branch 100-62.5-25 mcg DsDv aspirin 81 2018-09 Yes 81mg Take 81 mg U nivers mg EC 2-10 by mouth ity of tablet 00:11: daily. [address] varenicline 2018-09 Yes 1mg Take 1 mg U nivers (CHANTIX) 1 2-10 by mouth 2 it y of mg tablet 00:11: (two) [address] Medical daily. Branch predniSONE 2018-09 Yes 20mg Take 20 mg U nivers 20 mg 2-10 by mouth ity of tablet 00:11: daily. [address] omeprazole 2018-09 Yes 40mg Take 40 mg U nivers 40 mg 2-10 by mouth ity of capsule 00:11: daily. [address] fluticasone 2018-09 Yes 1{puff} Inhale 1 Univers -umeclidin- 2-10 Puff ity of vilanter 00:11: daily. [place] ([address]) Branch 100-62.5-25 mcg DsDv aspirin 81 2018-09 Yes 81mg Take 81 mg U nivers mg EC 2-10 by mouth ity of tablet 00:11: daily. [address] varenicline 2018-09 Yes 1mg Take 1 mg U nivers (CHANTIX) 1 2-10 by mouth 2 it y of mg tablet 00:11: (two) [address] Medical daily. Branch predniSONE 2018-09 Yes 20mg Take 20 mg U nivers 20 mg 2-10 by mouth ity of tablet 00:11: daily. [address] omeprazole 2018-09 Yes 40mg Take 40 mg U nivers 40 mg 2-10 by mouth ity of capsule 00:11: daily. [address] fluticasone 2018-09 Yes 1{puff} Inhale 1 Univers -umeclidin- 2-10 Puff ity of vilanter 00:11: daily. [place] ([address]) Branch 100-62.5-25 mcg DsDv aspirin 81 2018-09 Yes 81mg Take 81 mg U nivers mg EC 2-10 by mouth ity of tablet 00:11: daily. [address] varenicline 2018-09 Yes 1mg Take 1 mg U nivers (CHANTIX) 1 2-10 by mouth 2 it y of mg tablet 00:11: (two) [place] [id number] times Medical daily. Branch predniSONE 2018-09 Yes 20mg Take 20 mg U nivers 20 mg 2-10 by mouth ity of tablet 00:11: daily. [address] omeprazole 2018-09 Yes 40mg Take 40 mg U nivers 40 mg 2-10 by mouth ity of capsule 00:11: daily. [address] fluticasone 2019- Yes 1{puff} Inhale 1 Univers -umeclidin- 2-10 Puff ity of vilanter 00:11: daily. [place] ([place] [address] Medical [facility]) Branch 100-62.5-25 mcg DsDv aspirin 81 2018- Yes 81mg Take 81 mg U nivers mg EC 2-10 by mouth ity of tablet 00:11: daily. [address] omeprazole 2018- Yes 40mg Take 40 mg U nivers 40 mg 2-10 by mouth ity of capsule 00:11: daily. [address] omeprazole 2018- Yes 40mg Take 40 mg U nivers 40 mg 2-10 by mouth ity of capsule 00:11: daily. [address] omeprazole 2018- Yes 40mg Take 40 mg U nivers 40 mg 2-10 by mouth ity of capsule 00:11: daily. [address] omeprazole 2018- Yes 40mg Take 40 mg U nivers 40 mg 2-10 by mouth ity of capsule 00:11: daily. [address] omeprazole 2018- Yes 40mg Take 40 mg U nivers 40 mg 2-10 by mouth ity of capsule 00:11: daily. [address] omeprazole 2018- Yes 40mg Take 40 mg U nivers 40 mg 2-10 by mouth ity of capsule 00:11: daily. [address] omeprazole 2018- Yes 40mg Take 40 mg U nivers 40 mg 2-10 by mouth ity of capsule 00:11: daily. [address] omeprazole 2018- Yes 40mg Take 40 mg U nivers 40 mg 2-10 by mouth ity of capsule 00:11: daily. [address] omeprazole 2018- Yes 40mg Take 40 mg U nivers 40 mg 2-10 by mouth ity of capsule 00:11: daily. [address] omeprazole 2018- Yes 40mg Take 40 mg U nivers 40 mg 2-10 by mouth ity of capsule 00:11: daily. [address] omeprazole 2018- Yes 40mg Take 40 mg U nivers 40 mg 2-10 by mouth ity of capsule 00:11: daily. [address] omeprazole 2018-09 Yes 40mg Take 40 mg U nivers 40 mg 2-10 by mouth ity of capsule 00:11: daily. [address] omeprazole 2018-09 Yes 40mg Take 40 mg U nivers 40 mg 2-10 by mouth ity of capsule 00:11: daily. [address] Branch KCL 20 mEq 2018-09 Yes [id number] 40meq Take 2 Univers tablet 2-09 tablets by ity of 00:00: mouth [place] 00 daily. Medical Branch KCL 20 mEq 2018-09 Yes [id number] 40meq Take 2 Univers tablet 2-09 tablets by ity of 00:00: mouth [place] 00 daily. Medical Branch atorvastati 2018-09 Yes [id number] 20mg Take 1 Univers n 20 mg 2-09 tablet by ity of tablet 00:00: mouth at [place] 00 bedtime. Medical Branch metoprolol 2018-09 Yes [id number] 50mg Take 1 Univers succinate 2-09 tablet by ity o f XL 50 mg 24 00:00: mouth 2 [place] hr tablet 00 (two) Medical times Branch daily. furosemide 2018-09 Yes [id number] 40mg Take 1 Univers 40 mg 2-09 tablet by ity of tablet 00:00: mouth [place] 00 every Medical morning Branch and evening. KCL 20 mEq 2018-09 Yes [id number] 40meq Take 2 Univers tablet 2-09 tablets by ity of 00:00: mouth [place] 00 daily. Medical Branch atorvastati 2018-09 Yes [id number] 20mg Take 1 Univers n 20 mg 2-09 tablet by ity of tablet 00:00: mouth at [place] 00 bedtime. Medical Branch metoprolol 2018-09 Yes [id number] 50mg Take 1 Univers succinate 2-09 tablet by ity o f XL 50 mg 24 00:00: mouth 2 [place] hr tablet 00 (two) Medical times Branch daily. furosemide 2018-09 Yes [id number] 40mg Take 1 Univers 40 mg 2-09 tablet by ity of tablet 00:00: mouth [place] 00 every Medical morning Branch and evening. KCL 20 mEq 2018-09 Yes [id number] 40meq Take 2 Univers tablet 2-09 tablets by ity of 00:00: mouth [place] 00 daily. Medical Branch atorvastati 2018-09 Yes [id number] 20mg Take 1 Univers n 20 mg 2-09 tablet by ity of tablet 00:00: mouth at [place] 00 bedtime. Medical Branch metoprolol 2018-09 Yes [id number] 50mg Take 1 Univers succinate 2-09 tablet by ity o f XL 50 mg 24 00:00: mouth 2 [place] hr tablet 00 (two) Medical times Branch daily. furosemide 2018-09 Yes [id number] 40mg Take 1 Univers 40 mg 2-09 tablet by ity of tablet 00:00: mouth [place] 00 every Medical morning Branch and evening. KCL 20 mEq 2018-09 Yes [id number] 40meq Take 2 Univers tablet 2-09 tablets by ity of 00:00: mouth [place] 00 daily. Medical Branch atorvastati 2018-09 Yes [id number] 20mg Take 1 Univers n 20 mg 2-09 tablet by ity of tablet 00:00: mouth at [place] 00 bedtime. Medical Branch metoprolol 2018-09 Yes [id number] 50mg Take 1 Univers succinate 2-09 tablet by ity o f XL 50 mg 24 00:00: mouth 2 [place] hr tablet 00 (two) Medical times Branch daily. furosemide 2018-09 Yes [id number] 40mg Take 1 Univers 40 mg 2-09 tablet by ity of tablet 00:00: mouth [place] 00 every Medical morning Branch and evening. KCL 20 mEq 2018-09 Yes [id number] 40meq Take 2 Univers tablet 2-09 tablets by ity of 00:00: mouth [place] 00 daily. Medical Branch atorvastati 2018-09 Yes [id number] 20mg Take 1 Univers n 20 mg 2-09 tablet by ity of tablet 00:00: mouth at [place] 00 bedtime. Medical Branch metoprolol 2018-09 Yes [id number] 50mg Take 1 Univers succinate 2-09 tablet by ity o f XL 50 mg 24 00:00: mouth 2 [place] hr tablet 00 (two) Medical times Branch daily. furosemide 2018-09 Yes [id number] 40mg Take 1 Univers 40 mg 2-09 tablet by ity of tablet 00:00: mouth [place] 00 every Medical morning Branch and evening. KCL 20 mEq 2018-09 Yes [id number] 40meq Take 2 Univers tablet 2-09 tablets by ity of 00:00: mouth [place] 00 daily. Medical Branch atorvastati 2018-09 Yes [id number] 20mg Take 1 Univers n 20 mg 2-09 tablet by ity of tablet 00:00: mouth at [place] 00 bedtime. Medical Branch metoprolol 2018-09 Yes [id number] 50mg Take 1 Univers succinate 2-09 tablet by ity o f XL 50 mg 24 00:00: mouth 2 [place] hr tablet 00 (two) Medical times Branch daily. furosemide 2018-09 Yes [id number] 40mg Take 1 Univers 40 mg 2-09 tablet by ity of tablet 00:00: mouth [place] 00 every Medical morning Branch and evening. KCL 20 mEq 2018-09 Yes [id number] 40meq Take 2 Univers tablet 2-09 tablets by ity of 00:00: mouth [place] 00 daily. Medical Branch KCL 20 mEq 2018-09 Yes [id number] 40meq Take 2 Univers tablet 2-09 tablets by ity of 00:00: mouth [place] 00 daily. Medical Branch KCL 20 mEq 2018-09 Yes [id number] 40meq Take 2 Univers tablet 2-09 tablets by ity of 00:00: mouth [place] 00 daily. Medical Branch KCL 20 mEq 2018-09 Yes [id number] 40meq Take 2 Univers tablet 2-09 tablets by ity of 00:00: mouth [place] 00 daily. Medical Branch KCL 20 mEq 2018-09 Yes [id number] 40meq Take 2 Univers tablet 2-09 tablets by ity of 00:00: mouth [place] 00 daily. Medical Branch KCL 20 mEq 2018-09 Yes [id number] 40meq Take 2 Univers tablet 2-09 tablets by ity of 00:00: mouth [place] 00 daily. Medical Branch KCL 20 mEq 2018-09 Yes [id number] 40meq Take 2 Univers tablet 2-09 tablets by ity of 00:00: mouth [place] 00 daily. Medical Branch KCL 20 mEq 2018-09 Yes [id number] 40meq Take 2 Univers tablet 2-09 tablets by ity of 00:00: mouth [place] 00 daily. Medical Branch KCL 20 mEq 2018-09 Yes [id number] 40meq Take 2 Univers tablet 2-09 tablets by ity of 00:00: mouth [place] 00 daily. Medical Branch KCL 20 mEq 2018-09 Yes [id number] 40meq Take 2 Univers tablet 2-09 tablets by ity of 00:00: mouth [place] 00 daily. Medical Branch KCL 20 mEq 2018-09 Yes [id number] 40meq Take 2 Univers tablet 2-09 tablets by ity of 00:00: mouth [place] 00 daily. Medical Branch KCL 20 mEq 2018-09 Yes [id number] 40meq Take 2 Univers tablet 2-09 tablets by ity of 00:00: mouth [place] 00 daily. Medical Branch KCL 20 mEq 2018-09 Yes [id number] 40meq Take 2 Univers tablet 2-09 tablets by ity of 00:00: mouth [place] 00 daily. Medical Branch KCL 20 mEq 2018-09 Yes [id number] 40meq Take 2 Univers tablet 2-09 tablets by ity of 00:00: mouth [place] 00 daily. Medical Branch KCL 20 mEq 2018-09 Yes [id number] 40meq Take 2 Univers tablet 2-09 tablets by ity of 00:00: mouth [place] 00 daily. Medical Branch KCL 20 mEq 2018-09 Yes [id number] 40meq Take 2 Univers tablet 2-09 tablets by ity of 00:00: mouth [place] 00 daily. Medical Branch KCL 20 mEq 2018-09 Yes [id number] 40meq Take 2 Univers tablet 2-09 tablets by ity of 00:00: mouth [place] 00 daily. Medical Branch KCL 20 mEq 2018-09 Yes [id number] 40meq Take 2 Univers tablet 2-09 tablets by ity of 00:00: mouth [place] 00 daily. Medical Branch KCL 20 mEq 2018-09 Yes [id number] 40meq Take 2 Univers tablet 2-09 tablets by ity of 00:00: mouth [place] 00 daily. Medical Branch KCL 20 mEq 2018-09- No [id number] 40meq Take 2 Univers tablet 2-05 22-12 tablets by ity of 00:00: 00:00 mouth [place] 00 :00 daily. Medical Branch atorvastati 2018-09- No [id number] 20mg Take 1 Univers n 20 mg 10-28 tablet by ity of tablet 00:00: 00:00 mouth at [place] 00 :00 bedtime. Medical Branch metoprolol 2018-09- No [id number] 50mg Take 1 Univers succinate 10-28- tablet by ity of XL 50 mg 24 00:00: 00:00 mouth 2 [place] hr tablet 00 :00 (two) Medical times Branch daily. furosemide 2018-09- No [id number] 40mg Take 1 Univers 40 mg 2-09 [...] Until mL Discontinu ed, Routine ibuprofen Yes [id number] 600mg Take 1 U nivers 600 mg 5-31 tablet by ity of tablet 00:00: mouth [place] 00 every 8 Medical (eight) Branch hours as needed (PAIN). ibuprofen Yes [id number] 600mg Take 1 U nivers 600 mg 5-31 tablet by ity of tablet 00:00: mouth [place] 00 every 8 Medical (eight) Branch hours as needed (pain). ibuprofen 2019- No [id number] 600mg Take 1 Univers 600 mg 5-31 08-15 tablet by ity of tablet 00:00: 00:00 mouth [place] 00 :00 every 8 Medical (eight) Branch hours as needed (PAIN). ibuprofen 2019- No [id number] 600mg Take 1 Univers 600 mg 5-31 08-15 tablet by ity of tablet 00:00: 00:00 mouth [place] 00 :00 every 8 Medical (eight) Branch hours as needed (pain). magnesium Yes 400mg Take 1 Tab U nivers oxide 2-23 by mouth 3 ity of (MAG-OX 00:00: (three) [place] 400) 400 mg 00 times Medical tablet daily. Branch enalapril Yes [id number] 2.5mg Take 1 Tab Univers (VASOTEC) 2-23 [...] s tablet 00 Medical Branch furosemide Yes [id number] 40mg Take 1 Tab Univers (LASIX) 40 [...] Medical tablet daily. Branch enalapril 2018- No [id number] 2.5mg Take 1 Tab Univers (VASOTEC) 2- [...] 00 :00 Medical Branch furosemide 2019- No [id number] 40mg Take 1 Tab Univers (LASIX) 40 [...] mouth ity of tablet 00:00: daily. [place] 00 Medical Branch ipratropium 2013-09 Yes .5mg Inhale 2.5 Univers (ATROVENT) 2-17 mL 4 ity of 0.02 % 00:00: (four) [place] nebulizer 00 times Medical solution daily. Branch [...] mouth ity of tablet 00:00: daily. [place] [facility] ipratropium 2013-09 Yes .5mg Inhale [...] mouth ity of tablet 00:00: daily. [place] [facility] ipratropium 2013-09 Yes .5mg Inhale [...] mouth ity of tablet 00:00: daily. [place] [facility] ipratropium 2013-09 Yes .5mg Inhale [...] mouth ity of tablet 00:00: daily. [place] [facility] ipratropium 2013-09 Yes .5mg Inhale [...] mouth ity of tablet 00:00: daily. [place] [facility] ipratropium 2013-09 Yes .5mg Inhale [...] mouth ity of tablet 00:00: daily. [place] [facility] ipratropium 2013-09 Yes .5mg Inhale [...] mouth ity of tablet 00:00: daily. [place] [facility] ipratropium 2013-09 Yes .5mg Inhale [...] mouth ity of tablet 00:00: daily. [place] [facility] ipratropium 2013-09 Yes .5mg Inhale [...] mouth ity of tablet 00:00: daily. [place] [facility] ipratropium 2013-09 Yes .5mg Inhale [...] mouth ity of tablet 00:00: daily. [place] [facility] ipratropium 2013-09 Yes .5mg Inhale [...] mouth ity of tablet 00:00: daily. [place] [facility] ipratropium 2013-09 Yes .5mg Inhale [...] mouth ity of tablet 00:00: daily. [place] [facility] ipratropium 2013-09 Yes .5mg Inhale [...] mouth ity of tablet 00:00: daily. [place] [facility] ipratropium 2013-09 Yes .5mg Inhale [...] mouth ity of tablet 00:00: daily. [place] [facility] ipratropium 2013-09 Yes .5mg Inhale [...] mouth ity of tablet 00:00: daily. [place] [facility] ipratropium 2013-09 Yes .5mg Inhale [...] mouth ity of tablet 00:00: daily. [place] [facility] ipratropium 2013-09 Yes .5mg Inhale [...] mouth ity of tablet 00:00: daily. [place] [facility] ipratropium 2013-09 Yes .5mg Inhale [...] mouth ity of tablet 00:00: daily. [place] [facility] ipratropium 2013-09 Yes .5mg Inhale [...] mouth ity of tablet 00:00: daily. [place] [facility] ipratropium 2013-09 Yes .5mg Inhale [...] mouth ity of tablet 00:00: daily. [place] [facility] ipratropium 2013-09 Yes .5mg Inhale [...] mouth ity of tablet 00:00: daily. [place] [facility] ipratropium 2013-09 Yes .5mg Inhale [...] mouth ity of tablet 00:00: daily. [place] [facility] ipratropium 2013-09 Yes .5mg Inhale [...] ity of tablet 00:00: 00:00 daily. [place] 00 : Medical Branch ipratropium 2013-09- No [...] Immunizations Ordered Filled Immunization Date Status Comments [facility] e Immunization Name Name Pneumococcal 20 [...] Universit y of Conjugate, PCV20 00:00:00 [place] Id dical (Prevnar 20) Branch Pneumococcal 20 2022-12-12 [...] Universit y of Conjugate, PCV20 00:00:00 [place] Id dical (Prevnar 20) Branch Pneumococcal 20 2022-12-12 Completed Universit y of Conjugate, PCV20 00:00:00 [place] Id dical (Prevnar 20) Branch Pneumococcal 20 2022-12-12 Completed Universit y of Conjugate, PCV20 00:00:00 [place] Id dical (Prevnar 20) Branch Pneumococcal 20 2022-12-12 [...] Universit y of Conjugate, PCV20 00:00:00 [place] Id dical (Prevnar 20) Branch Pneumococcal 20 2022-12-12 Completed Universit y of Conjugate, PCV20 00:00:00 [place] Id dical (Prevnar 20) Branch Pneumococcal 20 2022-12-12 Completed Universit y of Conjugate, PCV20 00:00:00 [place] Id dical (Prevnar 20) Branch Pneumococcal 20 2022-12-12 Completed Universit y of Conjugate, PCV20 00:00:00 [place] Id dical (Prevnar 20) Branch Pneumococcal 20 2022-12-12 Completed Universit y of Conjugate, PCV20 00:00:00 [place] Me dical (Prevnar 20) Branch Pneumococcal 20 2022-12-12 Completed Universit y of Conjugate, PCV20 00:00:00 [place] Id dical (Prevnar 20) Branch Pneumococcal 20 2022-12-12 Completed Universit y of Conjugate, PCV20 00:00:00 [place] Me dical (Prevnar 20) Branch Pneumococcal 20 2022-12-12 Completed Universit y of Conjugate, PCV20 00:00:00 [place] Me dical (Prevnar 20) Branch Pneumococcal 20 2022-12-12 Completed Universit y of Conjugate, PCV20 00:00:00 [place] Me dical (Prevnar 20) Branch Pneumococcal 20 2022-12-12 Completed Universit y of Conjugate, PCV20 00:00:00 [place] Id dical (Prevnar 20) Branch Pneumococcal 20 2022-12-12 Completed Universit y of Conjugate, PCV20 00:00:00 [place] Id dical (Prevnar 20) Branch Pneumococcal 20 2022-12-12 Completed Universit y of Conjugate, PCV20 00:00:00 [facility] dical (Prevnar 20) Branch Pneumococcal 20 2022-12-12 Completed Universit y of Conjugate, PCV20 00:00:00 [facility] dical (Prevnar 20) Branch Pneumococcal 20 2022-12-12 Completed Universit y of Conjugate, PCV20 00:00:00 [facility] dical (Prevnar 20) Branch Pneumococcal 20 2022-12-12 Completed Universit y of Conjugate, PCV20 00:00:00 [facility] dical (Prevnar 20) Branch Pneumococcal 20 2022-12-12 Completed Universit y of Conjugate, PCV20 00:00:00 [facility] dical (Prevnar 20) Branch SARS-COV-2 COVID-19 [...] Unive rsity of MODERNA 12+ YRS 00:00:00 [facility] ical VACCINE Branch SARS-COV-2 COVID-19 2020-10-26 Completed Unive rsity of MODERNA VACCINE 00:00:00 [facility] ical Branch SARS-COV-2 COVID-19 2020-10-26 Completed Unive rsity of MODERNA 12+ YRS 00:00:00 [facility] ical VACCINE Branch SARS-COV-2 COVID-19 2020-10-26 Completed Unive rsity of MODERNA 12+ YRS 00:00:00 [facility] ical VACCINE Branch SARS-COV-2 COVID-19 2020-10-26 Completed Unive rsity of MODERNA 12+ YRS 00:00:00 [facility] ical VACCINE Branch Td 2019-02-16 Completed University of 00:00:00 [facility] [place] [facility] TD, NOS 2019-02-16 Completed University of 00:00:00 [facility] [place] [facility] TD, NOS 2019-02-16 Completed University of 00:00:00 [facility] [place] [facility] TD, NOS 2019-02-16 Completed University of 00:00:00 [facility] [place] [facility] TD, NOS 2019-02-16 Completed University of 00:00:00 [facility] [place] [facility] TD, NOS 2019-02-16 Completed University of 00:00:00 [facility] [place] [facility] Td 2019-02-16 Completed University of 00:00:00 [facility] [place] [facility] TD, NOS 2019-02-16 Completed University of 00:00:00 [...] TD, NOS 2019-02-16 Completed University of 00:00:00 [facility] [place] [facility] TD, NOS 2019-02-16 Completed University of 00:00:00 [facility] [place] [facility] Td 2019-02-16 Completed University of 00:00:00 [facility] [place] [facility] TD, NOS 2019-02-16 Completed University of 00:00:00 [facility] [place] [facility] TD, NOS 2019-02-16 Completed University of 00:00:00 [facility] [place] [facility] TD, NOS 2019-02-16 Completed University of 00:00:00 [facility] [place] [facility] Pneumococcal 2014-09-05 Completed University o f Polysaccharide, 00:00:00 [place] Med ical PPSV23 (PNEUMOVAX) Branch Influenza Virus 2014-09-05 Completed Universit y of Vaccine Quad IM 3+ 00:00:00 [facility] Pneumococcal 2014-09-05 Completed University o f Polysaccharide, 00:00:00 [place] Med ical PPSV23 (PNEUMOVAX) Branch Influenza Virus 2014-09-05 Completed Universit y of Vaccine Quad IM 3+ 00:00:00 [facility] Pneumococcal 2014-09-05 Completed University o f Polysaccharide, 00:00:00 [place] Med ical PPSV23 (PNEUMOVAX) Branch Influenza Virus 2014-09-05 Completed Universit y of Vaccine Quad IM 3+ 00:00:00 [facility] Pneumococcal 2014-09-05 Completed University o f Polysaccharide, 00:00:00 [place] Med ical PPSV23 (PNEUMOVAX) Branch Influenza Virus 2014-09-05 Completed Universit y of Vaccine Quad IM 3+ 00:00:00 [facility] Pneumococcal 2014-09-05 Completed University o f Polysaccharide, 00:00:00 [place] Med ical PPSV23 (PNEUMOVAX) Branch Influenza Virus 2014-09-05 Completed Universit y of Vaccine Quad IM 3+ 00:00:00 [facility] Pneumococcal 2014-09-05 Completed University o f Polysaccharide, 00:00:00 [place] Med ical PPSV23 (PNEUMOVAX) Branch Influenza Virus 2014-09-05 Completed Universit y of Vaccine Quad IM 3+ 00:00:00 [facility] Pneumococcal 2014-09-05 Completed University o f Polysaccharide, 00:00:00 [place] Med ical PPSV23 (PNEUMOVAX) Branch Influenza Virus 2014-09-05 Completed Universit y of Vaccine Quad IM 3+ 00:00:00 [facility] Pneumococcal 2014-09-05 Completed University o f Polysaccharide, 00:00:00 [place] Med ical PPSV23 (PNEUMOVAX) Branch Influenza Virus 2014-09-05 Completed Universit y of Vaccine Quad IM 3+ 00:00:00 [facility] Pneumococcal 2014-09-05 Completed University o f Polysaccharide, 00:00:00 [place] Med ical PPSV23 (PNEUMOVAX) Branch Influenza Virus 2014-09-05 Completed Universit y of Vaccine Quad IM 3+ 00:00:00 [facility] Pneumococcal 2014-09-05 Completed University o f Polysaccharide, 00:00:00 [place] Med ical PPSV23 (PNEUMOVAX) Branch Influenza Virus 2014-09-05 Completed Universit y of Vaccine Quad IM 3+ 00:00:00 [facility] Pneumococcal 2014-09-05 Completed University o f Polysaccharide, 00:00:00 [place] Med ical PPSV23 (PNEUMOVAX) Branch Influenza Virus 2014-09-05 Completed [facility]it [facility] Vaccine Quad IM 3+ 00:00:00 [facility] Pneumococcal 2014-09-05 Completed University o f Polysaccharide, 00:00:00 [place] [facility] PPSV23 (PNEUMOVAX) Branch Influenza Virus 2014-09-05 Completed [facility]it [facility] of Vaccine Quad IM 3+ 00:00:00 [facility] Pneumococcal 2014-09-05 Completed University o f Polysaccharide, 00:00:00 [place] [facility] PPSV23 (PNEUMOVAX) Branch Influenza Virus 2014-09-05 Completed [facility]it [facility] of Vaccine Quad IM 3+ 00:00:00 [facility] Influenza Virus 2014-09-05 Completed [facility]it [facility] of Vaccine Quad IM 3+ 00:00:00 [facility] Pneumococcal 2014-09-05 Completed University o f Polysaccharide, 00:00:00 [place] [facility] PPSV23 (PNEUMOVAX) Branch Pneumococcal 2014-09-05 Completed [facility] o f Polysaccharide, 00:00:00 [place] [facility] PPSV23 (PNEUMOVAX) Branch Influenza Virus 2014-09-05 Completed [facility]it [facility] of Vaccine Quad IM 3+ 00:00:00 [facility] Pneumococcal 2014-09-05 Completed [facility] o f Polysaccharide, 00:00:00 [place] [facility] PPSV23 (PNEUMOVAX) Branch Influenza Virus 2014-09-05 Completed [facility]it [facility] of Vaccine Quad IM 3+ 00:00:00 [facility] Pneumococcal 2014-09-05 Completed [facility] o f Polysaccharide, 00:00:00 [place] [facility] PPSV23 (PNEUMOVAX) Branch Influenza Virus 2014-09-05 Completed [facility]it [facility] of Vaccine Quad IM 3+ 00:00:00 [facility] Pneumococcal 2014-09-05 Completed [facility] o f Polysaccharide, 00:00:00 [place] [facility] PPSV23 (PNEUMOVAX) Branch Influenza Virus 2014-09-05 Completed [facility]it [facility] of Vaccine Quad IM 3+ 00:00:00 [facility] Pneumococcal 2014-09-05 Completed [facility] o f Polysaccharide, 00:00:00 [place] [facility] PPSV23 (PNEUMOVAX) Branch Influenza Virus 2014-09-05 Completed [facility] of Vaccine Quad IM 3+ 00:00:00 [facility] Pneumococcal 2014-09-05 Completed [facility] o f Polysaccharide, 00:00:00 [place] [facility] PPSV23 (PNEUMOVAX) Branch Influenza Virus 2014-09-05 Completed [facility] of Vaccine Quad IM 3+ 00:00:00 [facility] Pneumococcal 2014-09-05 Completed [facility] o f Polysaccharide, 00:00:00 [place] [facility] PPSV23 (PNEUMOVAX) Branch Influenza Virus 2014-09-05 Completed [facility]it [facility] of Vaccine Quad IM 3+ 00:00:00 [facility] Pneumococcal 2014-09-05 Completed [facility] o f Polysaccharide, 00:00:00 [place] [facility] PPSV23 (PNEUMOVAX) Branch Influenza Virus 2014-09-05 Completed [facility] of Vaccine Quad IM 3+ 00:00:00 [facility] Pneumococcal 2014-09-05 Completed [facility] o f Polysaccharide, 00:00:00 [place] [facility] PPSV23 (PNEUMOVAX) Branch Influenza Virus 2014-09-05 Completed [facility] of Vaccine Quad IM 3+ 00:00:00 [facility] Pneumococcal 2014-09-05 Completed [facility] o f Polysaccharide, 00:00:00 [place] [facility] PPSV23 (PNEUMOVAX) Branch Influenza Virus 2014-09-05 Completed [facility] of Vaccine Quad IM 3+ 00:00:00 [facility] Pneumococcal 2014-09-05 Completed [facility] o f Polysaccharide, 00:00:00 [place] [facility] PPSV23 (PNEUMOVAX) Branch Influenza Virus 2014-09-05 Completed [facility]it [facility] of Vaccine Quad IM 3+ 00:00:00 [facility] Pneumococcal 2014-09-05 Completed [facility] o f Polysaccharide, 00:00:00 [place] [facility] PPSV23 (PNEUMOVAX) Branch Influenza Virus 2014-09-05 Completed [facility] of Vaccine Quad IM 3+ 00:00:00 [facility] Pneumococcal 2014-09-05 Completed [facility] o f Polysaccharide, 00:00:00 [place] [facility] PPSV23 (PNEUMOVAX) Branch Influenza Virus 2014-09-05 Completed [facility] of Vaccine Quad IM 3+ 00:00:00 [facility] Pneumococcal 2014-09-05 Completed [facility] o f Polysaccharide, 00:00:00 [place] [facility] PPSV23 (PNEUMOVAX) Branch Influenza Virus 2014-09-05 Completed [facility] of Vaccine Quad IM 3+ 00:00:00 [facility] Pneumococcal 2014-09-05 Completed [facility] o f Polysaccharide, 00:00:00 [place] [facility] PPSV23 (PNEUMOVAX) Branch Influenza Virus 2014-09-05 Completed [facility] of Vaccine Quad IM 3+ 00:00:00 [facility] Pneumococcal 2014-09-05 Completed [facility] o f Polysaccharide, 00:00:00 [place] [facility] PPSV23 (PNEUMOVAX) Branch Influenza Virus 2014-09-05 Completed [facility] of Vaccine Quad IM 3+ 00:00:00 [facility] Pneumococcal 2014-09-05 Completed [facility] o f Polysaccharide, 00:00:00 [place] [facility] PPSV23 (PNEUMOVAX) Branch Influenza Virus 2014-09-05 Completed [facility] of Vaccine Quad IM 3+ 00:00:00 [facility] Influenza Virus 2014-09-05 Completed [facility] of Vaccine Quad IM 3+ 00:00:00 [facility] Pneumococcal 2014-09-05 Completed [facility] o f Polysaccharide, 00:00:00 [place] [facility] PPSV23 (PNEUMOVAX) Branch Pneumococcal 2014-09-05 Completed [facility] o f Polysaccharide, 00:00:00 [place] [facility] PPSV23 (PNEUMOVAX) Branch Influenza Virus 2014-09-05 Completed [facility] of Vaccine Quad IM 3+ 00:00:00 [facility] Pneumococcal 2014-09-05 Completed [facility] o f Polysaccharide, 00:00:00 [place] [facility] PPSV23 (PNEUMOVAX) Branch Influenza Virus 2014-09-05 Completed [facility] Vaccine Quad IM 3+ 00:00:00 [facility] Pneumococcal 2014-09-05 Completed [facility] o f Polysaccharide, 00:00:00 [place] [facility] PPSV23 (PNEUMOVAX) Branch Influenza Virus 2014-09-05 Completed [facility] of Vaccine Quad IM 3+ 00:00:00 [facility] Pneumococcal 2014-09-05 Completed [facility] o f Polysaccharide, 00:00:00 [place] [facility] PPSV23 (PNEUMOVAX) Branch Influenza Virus 2014-09-05 Completed [facility] of Vaccine Quad IM 3+ 00:00:00 [facility] Pneumococcal 2014-09-05 Completed [facility] o f Polysaccharide, 00:00:00 [place] [facility] PPSV23 (PNEUMOVAX) Branch Influenza Virus 2014-09-05 Completed [facility] of Vaccine Quad IM 3+ 00:00:00 [facility] Pneumococcal 2014-09-05 Completed [facility] o f Polysaccharide, 00:00:00 [place] [facility] PPSV23 (PNEUMOVAX) Branch Influenza Virus 2014-09-05 Completed [facility] Vaccine Quad IM 3+ 00:00:00 [facility] Pneumococcal 2014-09-05 Completed [facility] o f Polysaccharide, 00:00:00 [place] [facility] PPSV23 (PNEUMOVAX) Branch Influenza Virus 2014-09-05 Completed [facility] of Vaccine Quad IM 3+ 00:00:00 [facility] Pneumococcal 2014-09-05 Completed [facility] o f Polysaccharide, 00:00:00 [place] [facility] PPSV23 (PNEUMOVAX) Branch Influenza Virus 2014-09-05 Completed [facility] of Vaccine Quad IM 3+ 00:00:00 [facility] Pneumococcal 2014-09-05 Completed [facility] o f Polysaccharide, 00:00:00 [place] [facility] PPSV23 (PNEUMOVAX) Branch Influenza Virus 2014-09-05 Completed [facility] of Vaccine Quad IM 3+ 00:00:00 [facility] Pneumococcal 2014-09-05 Completed [facility] o f Polysaccharide, 00:00:00 [place] [facility] PPSV23 (PNEUMOVAX) Branch Influenza Virus 2014-09-05 Completed [facility] of Vaccine Quad IM 3+ 00:00:00 [facility] Pneumococcal 2014-09-05 Completed [facility] o f Polysaccharide, 00:00:00 [place] [facility] PPSV23 (PNEUMOVAX) Branch Influenza Virus 2014-09-05 Completed [facility] of Vaccine Quad IM 3+ 00:00:00 [facility] Pneumococcal 2014-09-05 Completed [facility] o f Polysaccharide, 00:00:00 [place] [facility] PPSV23 (PNEUMOVAX) Branch Influenza Virus 2014-09-05 Completed [facility] of Vaccine Quad IM 3+ 00:00:00 [facility] Pneumococcal 2014-09-05 Completed [facility] o f Polysaccharide, 00:00:00 [place] [facility] PPSV23 (PNEUMOVAX) Branch Influenza Virus 2014-09-05 Completed [facility] of Vaccine Quad IM 3+ 00:00:00 [facility] Pneumococcal 2014-09-05 Completed [facility] o f Polysaccharide, 00:00:00 [place] [facility] PPSV23 (PNEUMOVAX) Branch Influenza Virus 2014-09-05 Completed [facility] of Vaccine Quad IM 3+ 00:00:00 [facility] Pneumococcal 2014-09-05 Completed [facility] o f Polysaccharide, 00:00:00 [place] [facility] PPSV23 (PNEUMOVAX) Branch Influenza Virus 2014-09-05 Completed [facility] of Vaccine Quad IM 3+ 00:00:00 [facility] Pneumococcal 2014-09-05 Completed [facility] o f Polysaccharide, 00:00:00 [place] [facility] PPSV23 (PNEUMOVAX) Branch Influenza Virus 2014-09-05 Completed [facility] of Vaccine Quad IM 3+ 00:00:00 [facility] Pneumococcal 2014-09-05 Completed [facility] o f Polysaccharide, 00:00:00 [place] [facility] PPSV23 (PNEUMOVAX) Branch Influenza Virus 2014-09-05 Completed [facility]it [facility] of Vaccine Quad IM 3+ 00:00:00 [facility] Pneumococcal 2014-09-05 Completed [facility] o f Polysaccharide, 00:00:00 [place] [facility] PPSV23 (PNEUMOVAX) Branch Influenza Virus 2014-09-05 Completed [facility] of Vaccine Quad IM 3+ 00:00:00 [facility] Pneumococcal 2014-09-05 Completed [facility] o f Polysaccharide, 00:00:00 [place] [facility] PPSV23 (PNEUMOVAX) Branch Influenza Virus 2014-09-05 Completed [facility] of Vaccine Quad IM 3+ 00:00:00 [facility] Pneumococcal 2014-09-05 Completed [facility] o f Polysaccharide, 00:00:00 [place] [facility] PPSV23 (PNEUMOVAX) Branch Influenza Virus 2014-09-05 Completed [facility] of Vaccine Quad IM 3+ 00:00:00 [facility] Pneumococcal 2014-09-05 Completed [facility] o f Polysaccharide, 00:00:00 [place] [facility] PPSV23 (PNEUMOVAX) Branch Influenza Virus 2014-09-05 Completed [facility]it [facility] of Vaccine Quad IM 3+ 00:00:00 [facility] Pneumococcal 2014-09-05 Completed University o f Polysaccharide, 00:00:00 [place] [facility] PPSV23 (PNEUMOVAX) Branch Influenza Virus 2014-09-05 Completed [facility] of Vaccine Quad IM 3+ 00:00:00 [facility] Pneumococcal 2014-09-05 Completed [facility] o f Polysaccharide, 00:00:00 [place] [facility] PPSV23 (PNEUMOVAX) Branch Influenza Virus 2014-09-05 Completed [facility] of Vaccine Quad IM 3+ 00:00:00 [facility] Pneumococcal 2014-09-05 Completed [facility] o f Polysaccharide, 00:00:00 [place] [facility] PPSV23 (PNEUMOVAX) Branch Influenza Virus 2014-09-05 Completed [facility]it [facility] of Vaccine Quad IM 3+ 00:00:00 [facility] Pneumococcal 2014-09-05 Completed [facility] o f Polysaccharide, 00:00:00 [place] [facility] PPSV23 (PNEUMOVAX) Branch Influenza Virus 2014-09-05 Completed [facility]it [facility] of Vaccine Quad IM 3+ 00:00:00 [facility] Pneumococcal 2014-09-05 Completed [facility] o f Polysaccharide, 00:00:00 [place] [facility] PPSV23 (PNEUMOVAX) Branch Influenza Virus 2014-09-05 Completed [facility] of Vaccine Quad IM 3+ 00:00:00 [facility] Pneumococcal 2014-09-05 Completed [facility] o f Polysaccharide, 00:00:00 [place] [facility] PPSV23 (PNEUMOVAX) Branch Influenza Virus 2014-09-05 Completed [facility]it [facility] of Vaccine Quad IM 3+ 00:00:00 [facility] Pneumococcal 2014-09-05 Completed University o f Polysaccharide, 00:00:00 [place] [facility] PPSV23 (PNEUMOVAX) Branch Influenza Virus 2014-09-05 Completed [facility] of Vaccine Quad IM 3+ 00:00:00 [facility] Pneumococcal 2014-09-05 Completed [facility] o f Polysaccharide, 00:00:00 [place] [facility] PPSV23 (PNEUMOVAX) Branch Influenza Virus 2014-09-05 Completed [facility]it [facility] of Vaccine Quad IM 3+ 00:00:00 [facility] Pneumococcal 2014-09-05 Completed [facility] o f Polysaccharide, 00:00:00 [place] [facility] PPSV23 (PNEUMOVAX) Branch Influenza Virus 2014-09-05 Completed [facility]it [facility] of Vaccine Quad IM 3+ 00:00:00 [facility] Pneumococcal 2014-09-05 Completed [facility] o f Polysaccharide, 00:00:00 [place] [facility] PPSV23 (PNEUMOVAX) Branch Influenza Virus 2014-09-05 Completed [facility]it [facility] of Vaccine Quad IM 3+ 00:00:00 [facility] Influenza Virus 2014-09-05 Completed [facility]it y of Vaccine Quad IM 3+ 00:00:00 [facility] Pneumococcal 2014-09-05 Completed University o f Polysaccharide, 00:00:00 [place] [facility] PPSV23 (PNEUMOVAX) Branch Pneumococcal 2014-09-05 Completed University o f Polysaccharide, 00:00:00 [place] [facility] PPSV23 (PNEUMOVAX) Branch Influenza Virus 2014-09-05 Completed [facility]it y of Vaccine Quad IM 3+ 00:00:00 [facility] Pneumococcal 2014-09-05 Completed University o f Polysaccharide, 00:00:00 [place] [facility] PPSV23 (PNEUMOVAX) Branch Influenza Virus 2014-09-05 Completed [facility]it y of Vaccine Quad IM 3+ 00:00:00 [facility] Pneumococcal 2014-09-05 Completed University o f Polysaccharide, 00:00:00 [place] [facility] PPSV23 (PNEUMOVAX) Branch Influenza Virus 2014-09-05 Completed [facility]it y of Vaccine Quad IM 3+ 00:00:00 [facility] Pneumococcal 2014-09-05 Completed University o f Polysaccharide, 00:00:00 [place] [facility] PPSV23 (PNEUMOVAX) Branch Influenza Virus 2014-09-05 Completed [facility]it y of Vaccine Quad IM 3+ 00:00:00 [facility] Vital Signs Vital Name Observation Time Observation Value Comments Source Systolic blood 2023-03-01 143 mm[Hg] University of pressure 20:27:00 [facility] Diastolic blood 2023-03-01 87 mm[Hg] University o f pressure 20:27:00 [facility] [place] [facility] Heart rate 2023-03-01 99 /min University 20:27:00 [facility] Body height 2023-03-01 177.8 cm University of 20:27:00 [facility] Body weight 2023-03-01 57.153 kg University of 20:27:00 [facility] BMI 2023-03-01 18.08 kg/m2 University of 20:27:00 [facility] Oxygen saturation 2023-03-01 99 /min University of in Arterial blood 20:27:00 [facility] by Pulse oximetry Branch Systolic blood 2023-02-18 144 mm[Hg] University of pressure 16:17:00 [facility] Diastolic blood 2023-02-18 68 mm[Hg] University o f pressure 16:17:00 [facility] Heart rate 2023-02-18 55 /min University of 16:17:00 [facility] Body temperature 2023-02-18 36.06 Tia University of 16:17:00 [facility] Respiratory rate 2023-02-18 18 /min University of 16:17:00 [facility] Oxygen saturation 2023-02-18 100 /min University in Arterial blood 16:17:00 [facility] by Pulse oximetry Branch Body weight 2023-02-18 58.968 kg University of 07:50:00 [facility] BMI 2023-02-18 18.65 kg/m2 University of 07:50:00 [facility] Body height 2023-02-16 177.8 cm University of 00:31:00 [facility] Oxygen saturation 2023-02-07 99 /min University of in Arterial blood 19:29:00 [facility] by Pulse oximetry Branch Systolic blood 2023-02-07 103 mm[Hg] University of pressure 19:27:00 [facility] [place] [facility] Diastolic blood 2023-02-07 75 mm[Hg] University o f pressure 19:27:00 [facility] Heart rate 2023-02-07 104 /min University of 19:27:00 [facility] Body temperature 2023-02-07 36.39 Tia University of 19:27:00 [facility] Branch Respiratory rate 2023-02-07 22 /min University of 19:27:00 [facility] Body weight 2023-02-07 72.576 kg University of 19:27:00 [facility] BMI 2023-02-07 22.96 kg/m2 University of 19:27:00 [facility] Heart rate 2023-02-05 85 /min University of 20:17:00 [facility] Respiratory rate 2023-02-05 18 /min University of 20:17:00 [facility] Oxygen saturation 2023-02-05 100 /min University of in Arterial blood 20:17:00 [facility] by Pulse oximetry Branch Systolic blood 2023-02-05 98 mm[Hg] University of pressure 19:53:35 [facility] Diastolic blood 2023-02-05 71 mm[Hg] University o f pressure 19:53:35 [facility] Body temperature 2023-02-05 36.5 Tia University of 19:51:00 [facility] Body height 2023-02-05 177.8 cm University of 19:51:00 [facility] Body weight 2023-02-05 72.576 kg University of 19:51:00 [facility] BMI 2023-02-05 22.96 kg/m2 University of 19:51:00 [facility] Heart rate 2023-02-04 76 /min University of 20:31:00 [facility] Respiratory rate 2023-02-04 18 /min University of 20:31:00 [facility] Oxygen saturation 2023-02-04 97 /min University of in Arterial blood 20:31:00 [facility] by Pulse oximetry Branch Systolic blood 2023-02-04 126 mm[Hg] University of pressure 20:15:00 [facility] Branch Diastolic blood 2023-02-04 98 mm[Hg] University o f pressure 20:15:00 [facility] Body temperature 2023-02-04 36.83 Tia University of 20:15:00 [facility] Body weight 2023-02-04 72.576 kg University of 20:15:00 [facility] BMI 2023-02-04 22.96 kg/m2 University of 20:15:00 [facility] Systolic blood 2023-02-03 100 mm[Hg] University of pressure 23:00:00 [facility] Branch Diastolic blood 2023-02-03 65 mm[Hg] University o f pressure 23:00:00 [facility] Branch Heart rate 2023-02-03 115 /min University of 23:00:00 [facility] Branch Respiratory rate 2023-02-03 20 /min University of 23:00:00 [facility] Branch Oxygen saturation 2023-02-03 97 /min University of in Arterial blood 23:00:00 [facility] by Pulse oximetry Branch Body temperature 2023-02-03 36.72 Tia University of 22:44:00 [facility] Body weight 2023-02-03 72.576 kg University of 22:44:00 [facility] BMI 2023-02-03 22.96 kg/m2 University of 22:44:00 [facility] Systolic blood 2023-02-03 128 mm[Hg] University of pressure 20:02:00 [facility] Branch Diastolic blood 2023-02-03 81 mm[Hg] University o f pressure 20:02:00 [facility] Branch Heart rate 2023-02-03 88 /min University of 20:02:00 [facility] Branch Respiratory rate 2023-02-03 25 /min University of 20:02:00 [facility] Oxygen saturation 2023-02-03 94 /min University of in Arterial blood 20:02:00 [facility] by Pulse oximetry Branch Body temperature 2023-02-03 36.61 Tia University of 18:18:00 [facility] Body weight 2023-02-03 72.576 kg University of 17:41:00 [facility] BMI 2023-02-03 22.96 kg/m2 University of 17:41:00 [facility] Heart rate 2023-02-02 107 /min University of 22:49:00 [facility] Respiratory rate 2023-02-02 20 /min University of 22:49:00 [facility] Oxygen saturation 2023-02-02 94 /min University of in Arterial blood 22:49:00 [facility] by Pulse oximetry Branch Systolic blood 2023-02-02 102 mm[Hg] University of pressure 22:32:00 [facility] Diastolic blood 2023-02-02 74 mm[Hg] University o f pressure 22:32:00 [facility] Body temperature 2023-02-02 35.83 Tia University of 21:58:32 [facility] Body height 2023-02-02 177.8 cm University of 21:54:00 [facility] Body weight 2023-02-02 72.576 kg University of 21:54:00 [facility] BMI 2023-02-02 22.96 kg/m2 University of 21:54:00 [facility] Systolic blood 2023-01-31 140 mm[Hg] University of pressure 21:00:00 [facility] Diastolic blood 2023-01-31 72 mm[Hg] University o f pressure 21:00:00 [facility] Heart rate 2023-01-31 89 /min University of 21:00:00 [facility] Respiratory rate 2023-01-31 20 /min University of 21:00:00 [facility] Oxygen saturation 2023-01-31 97 /min University of in Arterial blood 21:00:00 [facility] by Pulse oximetry Branch Body temperature 2023-01-31 36.72 Tia University of 18:50:00 [facility] Body weight 2023-01-31 72.576 kg University of 18:50:00 [facility] BMI 2023-01-31 22.96 kg/m2 University of 18:50:00 [facility] Systolic blood 2023-01-31 130 mm[Hg] University of pressure 16:09:00 [facility] Diastolic blood 2023-01-31 72 mm[Hg] University o f pressure 16:09:00 [facility] Heart rate 2023-01-31 99 /min University of 16:09:00 [facility] Body temperature 2023-01-31 36.39 Tia University of 16:09:00 [facility] Respiratory rate 2023-01-31 18 /min University of 16:09:00 [facility] Body height 2023-01-31 177.8 cm University of 16:09:00 [facility] Body weight 2023-01-31 72.576 kg University of 16:09:00 [facility] BMI 2023-01-31 22.96 kg/m2 University of 16:09:00 [facility] Oxygen saturation 2023-01-31 97 /min University of in Arterial blood 16:09:00 [facility] by Pulse oximetry Branch Systolic blood 2023-01-31 134 mm[Hg] University of pressure 14:50:00 [facility] Diastolic blood 2023-01-31 72 mm[Hg] University o f pressure 14:50:00 [facility] Heart rate 2023-01-31 85 /min University of 14:50:00 [facility] Body temperature 2023-01-31 36.39 Tia University of 14:50:00 [facility] Respiratory rate 2023-01-31 20 /min University of 14:50:00 [facility] Body weight 2023-01-31 72.576 kg University of 14:50:00 [facility] Branch BMI 2023-01-31 22.96 kg/m2 University of 14:50:00 [facility] Oxygen saturation 2023-01-31 100 /min University of in Arterial blood 14:50:00 [place] [facility] Pulse oximetry Branch Respiratory rate 2023-01-29 20 /min University of 13:40:00 [facility] Oxygen saturation 2023-01-29 100 /min University of in Arterial blood 13:40:00 [place] [facility] by Pulse oximetry Branch Systolic blood 2023-01-29 123 mm[Hg] University of pressure 13:06:00 [facility] Diastolic blood 2023-01-29 76 mm[Hg] University o f pressure 13:06:00 [facility] Heart rate 2023-01-29 97 /min University of 13:06:00 [facility] Body temperature 2023-01-29 36.61 Tia University of 13:06:00 [facility] Body height 2023-01-29 177.8 cm University of 13:06:00 [facility] Body weight 2023-01-29 72.576 kg University of 13:06:00 [facility] BMI 2023-01-29 22.96 kg/m2 University of 13:06:00 [facility] Systolic blood 2023-01-27 115 mm[Hg] University of pressure 11:47:00 [facility] Diastolic blood 2023-01-27 75 mm[Hg] University o f pressure 11:47:00 [facility] Heart rate 2023-01-27 100 /min University of 11:47:00 [facility] Body temperature 2023-01-27 35.78 Tia University of 11:47:00 [facility] Respiratory rate 2023-01-27 28 /min University of 11:47:00 [facility] Oxygen saturation 2023-01-27 99 /min University of in Arterial blood 11:47:00 [facility] by Pulse oximetry Branch Body height 2023-01-27 177.8 cm University of 09:57:00 [facility] Body weight 2023-01-27 72.576 kg University of 09:57:00 [facility] BMI 2023-01-27 22.96 kg/m2 University of 09:57:00 [facility] Heart rate 2023-01-24 88 /min University of 20:55:00 [facility] Oxygen saturation 2023-01-24 93 /min University of in Arterial blood 20:55:00 [facility] by Pulse oximetry Branch Respiratory rate 2023-01-24 22 /min University of 20:52:00 [facility] Systolic blood 2023-01-24 128 mm[Hg] University of pressure 20:30:00 [facility] Diastolic blood 2023-01-24 69 mm[Hg] University o f pressure 20:30:00 [facility] Body temperature 2023-01-24 36.67 Tia University of 17:24:00 [facility] Body height 2023-01-24 177.8 cm University of 17:24:00 [facility] Body weight 2023-01-24 72.576 kg University of 17:24:00 [facility] BMI 2023-01-24 22.96 kg/m2 University of 17:24:00 [facility] Systolic blood 2023-01-24 129 mm[Hg] University of pressure 01:00:00 [facility] Diastolic blood 2023-01-24 76 mm[Hg] University o f pressure 01:00:00 [facility] Heart rate 2023-01-24 77 /min University of 01:00:00 [facility] Respiratory rate 2023-01-24 18 /min University of 01:00:00 [facility] Oxygen saturation 2023-01-24 99 /min [facility] in Arterial blood 01:00:00 [facility] by Pulse oximetry Branch Body temperature 2023-01-24 35.61 Tia warm blankets University of 00:02:00 applied [facility] Body weight 2023-01-24 58.968 kg University of 00:02:00 [facility] BMI 2023-01-24 18.65 kg/m2 University of 00:02:00 [facility] Heart rate 2023-01-22 93 /min University of 23:46:00 [facility] Respiratory rate 2023-01-22 20 /min University of 23:46:00 [facility] Oxygen saturation 2023-01-22 100 /min University of in Arterial blood 23:46:00 [facility] by Pulse oximetry Branch Systolic blood 2023-01-22 146 mm[Hg] University of pressure 23:21:00 [facility] Diastolic blood 2023-01-22 93 mm[Hg] University o f pressure 23:21:00 [facility] Body temperature 2023-01-22 36.72 Tia University of 23:21:00 [facility] Body weight 2023-01-22 58.968 kg University of 23:21:00 [facility] BMI 2023-01-22 18.65 kg/m2 University of 23:21:00 [facility] Heart rate 2023-01-21 84 /min University of 21:57:00 [facility] Respiratory rate 2023-01-21 18 /min University of :57:00 [facility] Oxygen saturation 2023-01-21 97 /min University of in Arterial blood 21:57:00 [facility] by Pulse oximetry Branch Systolic blood 2023-01-21 103 mm[Hg] University of pressure 21:00:00 [facility] Diastolic blood 2023-01-21 61 mm[Hg] University o f pressure 21:00:00 [facility] Body temperature 2023-01-21 36.56 Tia University of 19:24:00 [facility] Body weight 2023-01-21 58.968 kg University of 19:24:00 [facility] BMI 2023-01-21 18.65 kg/m2 University of 19:24:00 [facility] Systolic blood 2023-01-19 111 mm[Hg] University of pressure 21:00:00 [facility] Diastolic blood 2023-01-19 64 mm[Hg] University o f pressure 21:00:00 [facility] Heart rate 2023-01-19 85 /min University of :00:00 [facility] Body temperature 2023-01-19 36.56 Tia University of 21:00:00 [facility] Respiratory rate 2023-01-19 17 /min University of :00:00 [facility] Oxygen saturation 2023-01-19 98 /min University of in Arterial blood 21:00:00 [facility] by Pulse oximetry Branch Body height 2023-01-19 177.8 cm University of 06:22:00 [facility] Body weight 2023-01-19 58.968 kg University of 06:22:00 [facility] BMI 2023-01-19 18.65 kg/m2 University of 06:22:00 [facility] Systolic blood 2023-01-17 116 mm[Hg] University of pressure 12:05:00 [facility] Diastolic blood 2023-01-17 69 mm[Hg] University o f pressure 12:05:00 [facility] Heart rate 2023-01-17 100 /min University of 12:05:00 [facility] Respiratory rate 2023-01-17 24 /min University of 12:05:00 [facility] Oxygen saturation 2023-01-17 93 /min University of in Arterial blood 12:05:00 [place] [facility] by Pulse oximetry Branch Body temperature 2023-01-17 35.39 Tia University [facility] 10:59:00 [facility] Body height 2023-01-17 177.8 cm University of 10:59:00 [facility] Body weight 2023-01-17 58.968 kg University of 10:59:00 [facility] BMI 2023-01-17 18.65 kg/m2 University of 10:59:00 [facility] Systolic blood 2023-01-07 122 mm[Hg] University of pressure 19:38:00 [facility] Diastolic blood 2023-01-07 86 mm[Hg] University o f pressure 19:38:00 [facility] Heart rate 2023-01-07 110 /min University of 19:38:00 [facility] Respiratory rate 2023-01-07 16 /min University of 19:38:00 [facility] Body height 2023-01-07 177.8 cm University of 19:38:00 [facility] Body weight 2023-01-07 59.966 kg University of 19:38:00 [facility] BMI 2023-01-07 18.97 kg/m2 University of 19:38:00 [facility] Systolic blood 2022-12-26 118 mm[Hg] University of pressure 18:00:00 [facility] Diastolic blood 2022-12-26 79 mm[Hg] University o f pressure 18:00:00 [facility] Heart rate 2022-12-26 93 /min University of 18:00:00 [facility] Respiratory rate 2022-12-26 20 /min University of 18:00:00 [facility] Oxygen saturation 2022-12-26 95 /min University of in Arterial blood 18:00:00 [place] [facility] by Pulse oximetry Branch Body temperature 2022-12-26 36.11 Tia University of 15:49:00 [facility] Body height 2022-12-26 177.8 cm University of 15:49:00 [facility] Body weight 2022-12-26 72.576 kg University of 15:49:00 [facility] BMI 2022-12-26 22.96 kg/m2 University of 15:49:00 [facility] Respiratory rate 2022-12-12 18 /min University of 16:45:00 [facility] Oxygen saturation 2022-12-12 99 /min University of in Arterial blood 16:45:00 [place] [facility] by Pulse oximetry Branch Systolic blood 2022-12-12 135 mm[Hg] University of pressure 16:11:00 [facility] Diastolic blood 2022-12-12 80 mm[Hg] University o f pressure 16:11:00 [facility] Heart rate 2022-12-12 77 /min University of 16:11:00 [facility] Body temperature 2022-12-12 35.89 Tia University of 16:11:00 [facility] Body weight 2022-12-12 65 kg University of 08:50:00 [facility] BMI 2022-12-12 20.56 kg/m2 University of 08:50:00 [facility] Body height 2022-12-11 177.8 cm University of 04:23:00 [facility] Heart rate 2022-12-04 95 /min University of 12:33:00 [facility] Respiratory rate 2022-12-04 17 /min University of 12:33:00 [facility] Oxygen saturation 2022-12-04 98 /min University of in Arterial blood 12:33:00 [facility] by Pulse oximetry Branch Systolic blood 2022-12-04 125 mm[Hg] University of pressure 12:20:00 [facility] Diastolic blood 2022-12-04 74 mm[Hg] University o f pressure 12:20:00 [facility] Body temperature 2022-12-04 36.61 Tia University of 12:20:00 [facility] Body height 2022-12-02 177.8 cm University of 05:16:00 [facility] Body weight 2022-12-02 72.576 kg University of 05:16:00 [facility] BMI 2022-12-02 22.96 kg/m2 University of 05:16:00 [facility] Systolic blood 2022-12-01 114 mm[Hg] University of pressure 13:00:00 [facility] Diastolic blood 2022-12-01 78 mm[Hg] University o f pressure 13:00:00 [facility] Heart rate 2022-12-01 88 /min University of 13:00:00 [facility] Respiratory rate 2022-12-01 20 /min University of 13:00:00 [facility] Oxygen saturation 2022-12-01 98 /min University of in Arterial blood 13:00:00 [place] [facility] by Pulse oximetry Branch Body temperature 2022-12-01 36.67 Tia University of 10:13:00 [facility] Body height 2022-12-01 177.8 cm University of 10:13:00 [facility] Body weight 2022-12-01 72.576 kg University of 10:13:00 [facility] BMI 2022-12-01 22.96 kg/m2 University of 10:13:00 [facility] Systolic blood 2022-11-28 154 mm[Hg] University of pressure 17:00:00 [facility] Diastolic blood 2022-11-28 106 mm[Hg] University o f pressure 17:00:00 [facility] Heart rate 2022-11-28 87 /min University of 17:00:00 [facility] Respiratory rate 2022-11-28 23 /min University of 17:00:00 [facility] Oxygen saturation 2022-11-28 96 /min University of in Arterial blood 17:00:00 [place] [facility] by Pulse oximetry Branch Body temperature 2022-11-28 36.78 Tia University of 16:00:00 [facility] Body weight 2022-11-27 67.132 kg University of 12:00:00 [facility] BMI 2022-11-27 21.24 kg/m2 University of 12:00:00 [facility] Body height 2022-11-27 177.8 cm University of 08:39:00 [facility] Systolic blood 2022-11-19 152 mm[Hg] University of pressure 10:48:00 [facility] Diastolic blood 2022-11-19 88 mm[Hg] University o f pressure 10:48:00 [facility] Heart rate 2022-11-19 92 /min University of 10:48:00 [facility] [place] [facility] Respiratory rate 2022-11-19 16 /min [facility] 10:48:00 [facility] Oxygen saturation 2022-11-19 98 /min [facility] in Arterial blood 10:48:00 [place] [facility] Pulse oximetry [facility] Body temperature 2022-11-19 36.22 Tia University of 08:20:00 [facility] Body height 2022-11-19 177.8 cm University of 08:20:00 [facility] Body weight 2022-11-19 67.132 kg University of 08:20:00 [facility] BMI 2022-11-19 21.24 kg/m2 University of 08:20:00 [facility] Systolic blood 2022-11-19 152 mm[Hg] University of pressure 02:18:57 [facility] Diastolic blood 2022-11-19 91 mm[Hg] University o f pressure 02:18:57 [facility] Heart rate 2022-11-19 109 /min University of 02:18:57 [facility] Respiratory rate 2022-11-19 22 /min University of 02:18:57 [facility] Oxygen saturation 2022-11-19 95 /min University of in Arterial blood 02:18:57 [facility] by Pulse oximetry Branch Body temperature 2022-11-19 36.78 Tia University of 02:17:11 [facility] Body height 2022-11-19 177.8 cm University of 00:52:00 [facility] Body weight 2022-11-19 67.132 kg University of 00:52:00 [facility] BMI 2022-11-19 21.24 kg/m2 University of 00:52:00 [facility] Heart rate 2022-11-11 75 /min University of 17:35:00 [facility] Respiratory rate 2022-11-11 18 /min University of 17:35:00 [facility] Oxygen saturation 2022-11-11 95 /min University of in Arterial blood 17:35:00 [facility] by Pulse oximetry Branch Systolic blood 2022-11-11 130 mm[Hg] University of pressure 17:25:00 [facility] Diastolic blood 2022-11-11 71 mm[Hg] University o f pressure 17:25:00 [facility] Body temperature 2022-11-11 35.94 Tia University of 17:25:00 [facility] Body weight 2022-11-11 77.52 kg University of 09:34:00 [facility] BMI 2022-11-11 24.52 kg/m2 University of 09:34:00 [facility] Body height 2022-11-09 177.8 cm University of 19:30:00 [facility] Systolic blood 2020-12-29 96 mm[Hg] University of pressure 15:24:00 [facility] Diastolic blood 2020-12-29 66 mm[Hg] University o f pressure 15:24:00 [facility] Heart rate 2020-12-29 71 /min University of 15:24:00 [facility] Body temperature 2020-12-29 36.33 Tia University of 15:24:00 [facility] Body weight 2020-12-29 72.576 kg University of 15:24:00 [facility] BMI 2020-12-29 22.96 kg/m2 University of 15:24:00 [facility] Oxygen saturation 2020-12-29 95 /min University of in Arterial blood 15:24:00 [facility] by Pulse oximetry Branch Systolic blood 2020-12-18 117 mm[Hg] University of pressure 19:07:00 [facility] Diastolic blood 2020-12-18 77 mm[Hg] University o f pressure 19:07:00 [facility] Heart rate 2020-12-18 77 /min University of 19:07:00 [facility] Body temperature 2020-12-18 36.22 Tia University of 19:07:00 [facility] Respiratory rate 2020-12-18 18 /min University of 19:07:00 [facility] Body height 2020-12-18 177.8 cm University of 19:07:00 [facility] Body weight 2020-12-18 73.211 kg University of 19:07:00 [facility] BMI 2020-12-18 23.16 kg/m2 University of 19:07:00 [facility] Systolic blood 2020-12-12 109 mm[Hg] University of pressure 18:00:00 [facility] Diastolic blood 2020-12-12 74 mm[Hg] University o f pressure 18:00:00 [facility] Heart rate 2020-12-12 78 /min University of 18:00:00 [facility] Respiratory rate 2020-12-12 20 /min University of 18:00:00 [facility] Oxygen saturation 2020-12-12 96 /min University of in Arterial blood 18:00:00 [place] [facility] by Pulse oximetry Branch Body temperature 2020-12-12 37.28 Tia University of 16:33:00 [facility] Body height 2020-12-12 177.8 cm University of 16:33:00 [facility] Body weight 2020-12-12 70.308 kg University of 16:33:00 [facility] BMI 2020-12-12 22.24 kg/m2 University of 16:33:00 [facility] Systolic blood 2020-12-08 125 mm[Hg] University of pressure 18:55:00 [facility] Diastolic blood 2020-12-08 82 mm[Hg] University o f pressure 18:55:00 [facility] Heart rate 2020-12-08 75 /min University of 18:55:00 [facility] Body temperature 2020-12-08 36.56 Tia University of 18:55:00 [facility] Respiratory rate 2020-12-08 16 /min University of 18:55:00 [facility] Body height 2020-12-08 177.8 cm University of 18:55:00 [facility] Body weight 2020-12-08 73.12 kg University of 18:55:00 [facility] BMI 2020-12-08 23.13 kg/m2 University of 18:55:00 [facility] Systolic blood 2019-05-04 127 mm[Hg] University of pressure 04:21:00 [facility] Diastolic blood 2019-05-04 86 mm[Hg] University o f pressure 04:21:00 [facility] Heart rate 2019-05-04 99 /min University of 04:21:00 [facility] Respiratory rate 2019-05-04 26 /min University of 04:21:00 [facility] Body height 2019-05-04 177.8 cm University of 04:21:00 [facility] Body weight 2019-05-04 72.576 kg University of 04:21:00 [facility] BMI 2019-05-04 22.96 kg/m2 University of 04:21:00 [facility] Oxygen saturation 2019-05-04 99 /min [facility] in Arterial blood 04:21:00 [facility] Pulse oximetry Branch Systolic blood 2019-05-04 127 mm[Hg] University of pressure 04:21:00 [facility] Diastolic blood 2019-05-04 86 mm[Hg] University o f pressure 04:21:00 [facility] Heart rate 2019-05-04 99 /min University of 04:21:00 [facility] Respiratory rate 2019-05-04 26 /min University of 04:21:00 [facility] Body height 2019-05-04 177.8 cm [facility] 04:21:00 [facility] Body weight 2019-05-04 72.576 kg [facility] 04:21:00 [facility] BMI 2019-05-04 22.96 kg/m2 [facility] 04:21:00 [facility] Oxygen saturation 2019-05-04 99 /min [facility] in Arterial blood 04:21:00 [facility] by Pulse oximetry Branch Procedures Procedure Date / Time Performing Clinician Source Performed [id number] 2023-03-15 00:00:00 YARELYU [facility] CONSENT/REFUSAL FOR 2023-03-01 19:49:30 Doctor Unassigned, No Un [facility] DIAGNOSIS AND TREATMENT Name [facility] [place] TRANSTHORACIC ECHO (TTE) 2023-02-16 13:56:56 Dedrick Toth [facility] COMPLETE W/ CONTRAST Medical Bra nch TROPONIN I 2023-02-16 11:32:00 Dedrick Toth [facility] COMP. METABOLIC PANEL 2023-02-16 11:32:00 Dedrick Toth [facility] ([id number]) [facility] CBC WITH DIFF 2023-02-16 11:32:00 Dedrick Toth [facility] N-TERMINAL PRO-BNP 2023-02-16 11:32:00 Dedrick Toth [facility] URINALYSIS 2023-02-15 21:18:00 Francisca Bryant [facility] HB ECG ROUTINE & RHYTHM 2023-02-15 20:15:35 Francisca Bryant [facility] XR CHEST 1 VW 2023-02-15 20:14:30 Francisca Bryant [facility] AC PANEL 21 + LACTIC 2023-02-15 20:02:00 Francisca Bryant [facility] ACID [facility] MAGNESIUM 2023-02-15 20:01:00 Francisca Bryant [facility] TROPONIN I 2023-02-15 20:01:00 Francisca Bryant [facility] COMP. METABOLIC PANEL 2023-02-15 20:01:00 Francisca Bryant [facility] ([id number]) Medical Branch CBC WITH DIFF 2023-02-15 20:01:00 Francisca Bryant [facility] ASSIGNMENT OF BENEFITS 2023-02-07 19:52:07 Doctor Unassigned, No [facility] CONSENT/REFUSAL FOR 2023-02-07 19:51:03 Doctor Unassigned, No [facility] [place] [facility] Name Medical [facility] CONSENT/REFUSAL FOR 2023-02-04 19:51:56 Doctor Unassigned, No [facility] [place] DIAGNOSIS AND TREATMENT Name Medical [facility] TROPONIN I 2023-01-31 20:21:00 Kristie [facility] COMP. METABOLIC PANEL 2023-01-31 20:21:00 Rachael Flowers [facility] ([id number]) Medical Branch ETHANOL 2023-01-31 20:21:00 Kristie [facility] CBC WITH DIFF 2023-01-31 20:21:00 Kristie [facility] N-TERMINAL PRO-BNP 2023-01-31 20:21:00 Rachael Flowers [facility] CONSENT/REFUSAL FOR 2023-01-31 18:39:05 Doctor Unassigned, No [facility] [place] DIAGNOSIS AND TREATMENT [facility] CONSENT/REFUSAL FOR 2023-01-31 15:54:08 Doctor Unassigned, No [facility] [place] DIAGNOSIS AND TREATMENT [facility] CONSENT/REFUSAL FOR 2023-01-31 14:29:18 Doctor Unassigned, No Un [facility] [place] DIAGNOSIS AND TREATMENT Name [facility] ACUTE CARE VENOUS BLOOD 2023-01-27 10:45:00 Bessie Oswald [facility] GAS [facility] TROPONIN I 2023-01-27 10:16:00 Bessie Oswald [facility] BASIC METABOLIC PANEL 2023-01-27 10:16:00 Bessie Oswald [facility] (NA, K, CL, CO2, Medical Branch GLUCOSE, BUN, CREATININE, CA) CBC WITH DIFF 2023-01-27 10:16:00 Bessie Oswald [facility] N-TERMINAL PRO-BNP 2023-01-27 10:16:00 Bessie Oswald [facility] URINALYSIS 2023-01-24 20:23:00 Stephanie Almonte [facility] CT HEAD WO CONTRAST 2023-01-24 19:38:00 Stephanie Almonte [facility] AC ABG + LACTIC ACID 2023-01-24 18:37:00 [facility] AMMONIA, PLASMA 2023-01-24 18:19:00 Stephanie Almonte [facility] RAPID STREP SCREEN FOR 2023-01-24 18:19:00 Stephanie [facility]te [facility] GROUP A [facility] COVID-19 (ID NOW RAPID 2023-01-24 18:19:00 Stephanie Almonte [facility] TESTING) [facility] TROPONIN I 2023-01-24 17:52:00 Stephanie Almonte [facility] COMP. METABOLIC PANEL 2023-01-24 17:52:00 Stephanie Almonte [facility] ([id number]) Medical Branch ETHANOL 2023-01-24 17:52:00 Stephanie Almonte [facility] CBC WITH DIFF 2023-01-24 17:52:00 Stephanie Almonte [facility] N-TERMINAL PRO-BNP 2023-01-24 17:52:00 Stephanie Almonte [facility] COMP. METABOLIC PANEL 2023-01-21 20:58:00 Louis Hong [facility] ([id number]) [facility] TROPONIN I 2023-01-21 20:05:00 Singer Louis [facility] CBC WITH DIFF 2023-01-21 20:05:00 Singer [facility] N-TERMINAL PRO-BNP 2023-01-21 20:05:00 Louis Hong [facility] AC PANEL 21 + LACTIC 2023-01-19 08:31:00 Agapito Hackett [facility] ACID [facility] D-DIMER 2023-01-19 08:17:00 Hackett, [facility] BASIC METABOLIC PANEL 2023-01-19 08:15:00 Iza Varma [facility] (NA, K, CL, CO2, Medical Branch GLUCOSE, BUN, CREATININE, CA) CBC WITH DIFF 2023-01-19 08:15:00 Iza Varma [facility] N-TERMINAL PRO-BNP 2023-01-19 08:15:00 [facility] EKG-12 LEAD 2023-01-17 12:23:30 Marisol Devlin [facility] XR CHEST 1 VW 2023-01-17 11:25:05 [facility] 2023-01-17 11:04:00 [facility] Center COMP. METABOLIC PANEL 2023-01-17 11:04:00 Marisol Devlin [facility] ([id number]) [facility] CBC WITH DIFF 2023-01-17 11:04:00 Marisol Devlin [facility] N-TERMINAL PRO-BNP 2023-01-17 11:04:00 Marisol Devlin [facility] COMP. METABOLIC PANEL 2022-12-26 17:23:00 Iza Varma [facility] ([id number]) [facility] XR CHEST 1 VW 2022-12-26 16:39:21 Iza Varma [facility] URINE DRUG (IMMUNOASSAY) 2022-12-26 16:29:00 Iza Varma [facility] Medical [facility] SCREEN URINALYSIS 2022-12-26 16:29:00 Iza Varma [facility] CBC WITH DIFF 2022-12-26 16:28:00 Iza Varma [facility] MAGNESIUM 2022-12-12 08:55:[address] [facility] BASIC METABOLIC PANEL 2022-12-12 08:55:00 [facility] (NA, K, CL, CO2, Medical Branch GLUCOSE, BUN, CREATININE, CA) LIPID PANEL 2022-12-12 08:55:00 [facility] ([id number])(TOTAL Medical Branch CHOLESTEROL, TRIGLYCERIDES, HDL) N-TERMINAL PRO-BNP 2022-12-12 08:55:00 [facility]UM 2022-12-11 08:30:00 Dedrick Toth [facility] OSMOLALITY, SERUM OR 2022-12-11 08:30:00 [facility] PLASMA [facility] FREE T4 2022-12-11 08:30:00 Dedrick Toth [facility] BASIC METABOLIC PANEL 2022-12-11 08:30:00 Dedrick Toth [facility] (NA, K, CL, CO2, Medical [place] GLUCOSE, BUN, CREATININE, CA) CBC WITH DIFF 2022-12-11 08:30:00 Dedrick Toth [facility] N-TERMINAL PRO-BNP 2022-12-11 08:30:00 Dedrick Toth [facility] OSMOLALITY URINE 2022-12-11 03:24:00 Dedrick Toth [facility] SODIUM, URINE RANDOM 2022-12-11 03:24:00 Dedrick Toth [facility] URINALYSIS 2022-12-11 01:15:00 Singer [facility] HB ECG ROUTINE & RHYTHM 2022-12-11 00:38:04 Singer [facility] CT HEAD WO CONTRAST 2022-12-11 00:32:23 Singer [facility] XR CHEST 1 VW 2022-12-11 00:29:20 Singer [facility] TROPONIN I 2022-12-11 00:08:00 Singer [facility] COMP. METABOLIC PANEL 2022-12-11 00:08:00 Louis Hong [facility] ([id number]) Medical Branch ETHANOL 2022-12-11 00:08:00 Singer [facility] CBC WITH DIFF 2022-12-11 00:08:00 Singer [facility] N-TERMINAL PRO-BNP 2022-12-11 00:08:00 Louis Hong [facility] LACTIC ACID WHOLE BLOOD 2022-12-11 00:03:00 Singer Louis [facility] AUTHORIZATION FOR 2022-12-09 05:01:00 Doctor Unassigned, No [facility] RELEASE OF [facility] BASIC METABOLIC PANEL 2022-12-04 10:43:00 [facility] (NA, K, CL, CO2, Medical Branch GLUCOSE, BUN, CREATININE, CA) CBC WITH DIFF 2022-12-04 10:43:00 Ben [facility] OSMOLALITY URINE 2022-12-03 17:05:00 Jonnathan Sudhakar [facility] SODIUM, URINE RANDOM 2022-12-03 17:05:00 Sudhakar De Santiago Un iversity [facility] MAGNESIUM 2022-12-03 10:20:00 Ben [facility] BASIC METABOLIC PANEL 2022-12-03 10:20:00 [facility] (NA, K, CL, CO2, [facility] GLUCOSE, BUN, CREATININE, CA) CBC WITH DIFF 2022-12-03 10:20:00 Ben [facility] BASIC METABOLIC PANEL 2022-12-02 05:27:00 [facility] (NA, K, CL, CO2, Medical Branch GLUCOSE, BUN, CREATININE, CA) CONSENT/REFUSAL FOR 2022-12-02 05:08:30 Doctor Unassigned, No [facility] HOSPITAL ADMISSION 2022-12-02 05:01:00 Doctor Unassigned, No Uni versity of [facility] COVID-19 (ID NOW RAPID 2022-12-01 13:01:00 Ernesto Piper [facility] TESTING) [facility] XR CHEST 1 VW 2022-12-01 12:40:25 [facility] 2022-12-01 12:17:26 Marisol Devlin [facility] ACUTE CARE ARTERIAL 2022-12-01 12:06:00 Marisol Devlin [facility] BLOOD GAS Medical Branch TROPONIN I 2022-12-01 11:51:00 Marisol Devlin [facility] BASIC METABOLIC PANEL 2022-12-01 11:51:00 Marisol Devlin [facility] (NA, K, CL, CO2, Medical Branch GLUCOSE, BUN, CREATININE, CA) CBC WITH DIFF 2022-12-01 11:51:00 Marisol Devlin [facility] BASIC METABOLIC PANEL 2022-11-28 16:51:00 Leila Chapa [facility] (NA, K, CL, CO2, Medical Branch GLUCOSE, BUN, CREATININE, CA) URIC ACID 2022-11-28 08:14:00 [facility] 2022-11-28 08:14:00 [facility] BASIC METABOLIC PANEL 2022-11-28 08:14:00 Leila Chapa [facility] (NA, K, CL, CO2, Medical Branch GLUCOSE, BUN, CREATININE, CA) CBC WITH DIFF 2022-11-28 08:14:00 María Diaz [facility] BASIC METABOLIC PANEL 2022-11-28 04:16:00 María Diaz [facility] (NA, K, CL, CO2, Medical Branch GLUCOSE, BUN, CREATININE, CA) BASIC METABOLIC PANEL 2022-11-28 00:33:00 Leila Chapa [facility] (NA, K, CL, CO2, Medical Branch GLUCOSE, BUN, CREATININE, CA) BASIC METABOLIC PANEL 2022-11-27 19:55:00 María Diaz [facility] (NA, K, CL, CO2, Medical Branch GLUCOSE, BUN, CREATININE, CA) MRSA / MSSA SCREEN BY 2022-11-27 09:21:00 María Diaz [facility] OSMOLALITY, SERUM OR 2022-11-27 09:10:00 María Diaz [facility] PLASMA [facility] OSMOLALITY URINE 2022-11-27 09:04:00 María Diaz [facility] BASIC METABOLIC PANEL 2022-11-27 09:04:00 María Diaz [facility] (NA, K, CL, CO2, Medical Branch GLUCOSE, BUN, CREATININE, CA) URINE DRUG (IMMUNOASSAY) 2022-11-27 09:04:00 María Diaz [facility] SCREEN URINALYSIS 2022-11-27 09:04:00 María Diaz [facility] CREATININE, URINE RANDOM 2022-11-27 09:04:00 María Diaz [facility] SODIUM, URINE RANDOM 2022-11-27 09:04:00 María Diaz [facility] XR CHEST 1 VW 2022-11-27 06:15:54 Bessie Oswald [facility] MAGNESIUM 2022-11-27 05:33:00 María Diaz [facility] TROPONIN I 2022-11-27 05:33:00 Bessie Oswald [facility] COMP. METABOLIC PANEL 2022-11-27 05:33:00 Bessie Oswald [facility] ([id number]) [facility] ETHANOL 2022-11-27 05:33:00 Bessie Oswald [facility] CBC WITH DIFF 2022-11-27 05:33:00 Bessie Oswald [facility] GLYCOSYLATED HEMOGLOBIN 2022-11-27 05:33:00 Leila Chapa [facility] (A1C) [facility] N-TERMINAL PRO-BNP 2022-11-27 05:33:00 Bessie Oswald [facility] HB ECG ROUTINE & RHYTHM 2022-11-27 05:31:54 Bessie Oswald [facility] STRIP [facility] COMP. METABOLIC PANEL 2022-11-19 08:44:00 Iza Varma [facility] ([id number]) [facility] CBC WITH DIFF 2022-11-19 08:44:00 Iza Varma [facility] N-TERMINAL PRO-BNP 2022-11-19 08:44:00 Iza Varma [facility] Medical Branch BASIC METABOLIC PANEL 2022-11-11 10:52:00 Iza Eden [facility] (NA, K, CL, CO2, Medical Branch GLUCOSE, BUN, CREATININE, CA) CBC WITH DIFF 2022-11-11 10:52:00 Iza Eden [facility] BASIC METABOLIC PANEL 2022-11-11 02:16:00 [facility] (NA, K, CL, CO2, Medical Branch GLUCOSE, BUN, CREATININE, CA) BASIC METABOLIC PANEL 2022-11-10 22:45:00 [facility] (NA, K, CL, CO2, Medical Branch GLUCOSE, BUN, CREATININE, CA) BASIC METABOLIC PANEL 2022-11-10 17:27:00 [facility] (NA, K, CL, CO2, Medical Branch GLUCOSE, BUN, CREATININE, CA) BASIC METABOLIC PANEL 2022-11-10 11:49:00 [facility] (NA, K, CL, CO2, Medical Branch GLUCOSE, BUN, CREATININE, CA) MAGNESIUM 2022-11-10 07:14:00 Travis Zeng [facility] BASIC METABOLIC PANEL 2022-11-10 07:14:00 [facility] (NA, K, CL, CO2, Medical Branch GLUCOSE, BUN, CREATININE, CA) CBC WITH DIFF 2022-11-10 07:14:00 [facility] XR CHEST 1 VW 2022-11-09 07:53:00 Marisol Devlin [facility] LIPASE 2022-11-09 07:53:00 Marisol Devlin [facility] TROPONIN I 2022-11-09 07:53:00 Marisol Devlin [facility] COMP. METABOLIC PANEL 2022-11-09 07:53:00 Marisol Devlin [facility] ([id number]) Medical Branch CBC WITH DIFF 2022-11-09 07:53:00 Marisol Devlin [facility] N-TERMINAL PRO-BNP 2022-11-09 07:53:00 Marisol Devlin [facility] ACUTE CARE ARTERIAL 2022-11-09 07:50:00 Marisol eDvlin [facility] BLOOD GAS [facility] HB ECG ROUTINE & RHYTHM 2022-11-09 07:39:47 Marisol Devlin [facility] ASSIGNMENT OF BENEFITS 2021-05-20 19:26:54 Doctor Unassigned, No [facility] POCT URINALYSIS AUTO 2020-12-18 19:04:00 Gokul Turner [facility] CT ABDOMEN PELVIS W 2020-12-12 17:25:03 Francisca Bryant [facility] BASIC METABOLIC PANEL 2020-12-12 16:47:00 Francisca Bryant [facility] (NA, K, CL, CO2, Medical Branch GLUCOSE, BUN, CREATININE, CA) CBC WITH DIFF 2020-12-12 16:47:00 Francisca Bryant [facility] URINALYSIS 2020-12-12 16:47:00 Francisca Bryant [facility] NOTICE OF PRIVACY 2020-12-12 16:28:57 Doctor Unassigned, No [facility] CONSENT/REFUSAL FOR 2020-12-12 16:28:23 Doctor Unassigned, No [facility] POCT URINALYSIS AUTO 2020-12-08 18:56:00 Jeanette Mcdaniel [facility] CONSENT/REFUSAL FOR 2020-12-08 18:26:17 Doctor Unassigned, No [facility] Branch ASSIGNMENT OF BENEFITS 2020-12-08 18:25:58 Doctor Unassigned, No [facility] AUTHORIZATION FOR 2020-02-20 05:01:00 Doctor Unassigned, No [facility] RELEASE OF [facility] NOTICE OF PRIVACY 2019-05-04 04:10:29 Doctor Unassigned, No [facility] CONSENT/REFUSAL FOR 2019-05-04 04:10:09 Doctor Unassigned, No Un [facility] DIAGNOSIS AND TREATMENT Name [facility] Encounters Start End Encounter Admission Attending Care Care Encounter Source Date/Time Date/Time Type Type Clinicians Facility Department ID 2021-07-19 Emergency [facility] [id number] Univers 08:46:33 ity [facility] 2023-03-15 2023-03-19 Inpatient EM Rudy Xiao HCAWU INTE.02 [id number] [facility] 07:16:00 14:47:[address] [facility] 2023-03-01 2023-03-01 Office [facility] 1.2.840.114 [id number] Univers 16:30:00 17:00:00 Visit HerminiaWummelkiste 350.1.13.10 it y of [facility] 4.2.7.2.686 Nelson as JACKIE?BLEA [phone] [facility] [address] MEDICAL OFFICE BUILDING 2023-03-01 2023-03-01 Outpatient R ADRIANO [facility] [id number] Univers 16:30:00 16:30:00 HERMINIA ity of [facility] 2023-03-01 2023-03-01 Orders Doctor ELDER 1.2.840.114 [id number] Univers 00:00:00 00:00:00 Only Unassigned, ASHER 350.1.13.10 ity of [place] [facility] 4.2.7.2.686 [place] as [id number] [address] 2023-03-01 2023-03-01 Refill Christa [facility] 1.2.840.114 [id number] Univers 00:00:00 00:00:00 , Mily HEALTH 350.1.13.10 ity of M [facility] 4.2.7.2.686 Nelson as JACKIE?BLEA [id number] [facility] [address] MEDICAL OFFICE BUILDING 2023-02-21 2023-02-21 Transition GARY Frye 1.2.840.114 [id number] Univers 00:00:00 00:00:00 of Care Taylor B SHAIKH 350.1.13.10 it y [place] [id number] [facility] [address] 2023-02-15 2023-02-18 Inpatient X KARRI [facility] [id number] Univers 14:41:00 16:11:00 TRAVIS [facility] 2023-02-15 2023-02-18 Hospital Iza Varma [facility] 1.2.840.11 [id number] Univers 14:41:00 16:11:00 Encounter Francisca Bryant 350.1.13 .10 ity Travis Zeng [facility] 4.2.7.2.686 [facility] [id number] [address] 2023-02-07 2023-02-07 Emergency [facility] ERT [id number] Univers 14:30:00 16:01:00 PRADIP [facility] 2023-02-07 2023-02-07 Emergency [facility] 1.2.840.114 [id number] Univers 14:30:00 16:01:00 Pradip DERAS 350.1.13.10 ity [facility] 4.2.7.2.686 [facility] [id number] [address] 2023-02-07 2023-02-07 Outpatient R CARL ORLANDO [facility] [id number] Univers 10:20:00 10:20:00 CARL ORLANDO [facility] 2023-02-05 2023-02-05 Emergency [facility] ERT [id number] Univers 14:53:00 16:10:00 HERMINIA [facility] 2023-02-05 2023-02-05 Emergency [facility] 1.2.712.722 [id number] Univers 14:53:00 16:10:00 Herminia DERAS 350.1.13.10 i ty of [facility] 4.2.7.2.686 [facility] [id number] [address] 2023-02-04 2023-02-04 Emergency X [facility] ERT [id number] Univers 15:26:00 16:25:00 FRANCISCA [facility] 2023-02-04 2023-02-04 Emergency Manny, [facility] 1.2.840.114 [id number] Univers 15:26:00 16:25:00 Francisca DERAS 350.1.13.10 ity of [place] [address] [place] [id number] 2023-02-03 2023-02-03 Emergency Sandie HONG, [facility] ERT [id number] Univers 17:46:00 18:47:00 [place] judge [facility] 2023-02-03 2023-02-03 Emergency X , [facility] ERT [id number] Univers 17:46:00 18:47:00 [place] judge [facility] 2023-02-03 2023-02-03 Emergency , [facility] [id number] Univers 17:46:00 18:47:00 Louis DERAS 350.1.13.10 i ty of [place] 4.2.7.2.[address] [place] [id number] 2023-02-03 2023-02-03 Emergency Jayezechariah, [facility] 1.2.690.358 [id number] Univers 12:43:00 15:04:00 Bessie DERAS 350.1.13.10 i ty of [place] 4.2.7.2.[address] [place] [id number] 2023-02-02 2023-02-02 Emergency X , [facility] ERT [id number] Univers 16:49:00 18:10:00 [place] judge [facility] 2023-02-02 2023-02-02 Emergency Hong, [facility] [id number] Univers 16:49:00 18:10:00 Louis DERAS 350.1.13.10 i ty of [place] 4.2.7.2.[address] [place] [id number] 2023-01-31 2023-01-31 Emergency X KRISTIE, [facility] ERT [id number] Univers 13:55:00 16:50:00 RACHAEL alfie [facility] 2023-01-312023-01-31 Emergency X KRISTIE, [facility] ERT [id number] Univers 13:55:00 16:50:00 RACHAEL judge [facility] 2023-01-31 2023-01-31 Emergency Kristie, [facility] 1.2.840.114 [id number] Univers 13:55:00 16:50:00 Rachael BRAEDEN 350.1.13.10 i ty of [facility] 4.2.7.2.686 [facility] [id number] [address] 2023-01-31 2023-01-31 Emergency X SRAVAN, [facility] ERT [id number] Univers 11:11:00 12:12:00 LEOBARDO [facility] 2023-01-31 2023-01-31 Emergency Maria [facility] 1.2.337.517 [id number] Univers 11:11:00 12:12:00 Leobardo DERAS 350.1.13.10 i ty of [facility] 4.2.7.[address] [place] [id number] 2023-01-31 2023-01-31 Emergency [facility] 1.2.983.801 [id number] Univers 09:51:00 10:16:00 BRAEDEN 350.1.13.10 i ty of [facility] 4.2.7.2.686 [facility] [id number] [address] 2023-01-29 2023-01-29 Emergency X MARQUIS, [facility] ERT [id number] Univers 08:08:00 10:00:00 HERMINIA [facility] 2023-01-29 2023-01-29 Emergency [facility] 1.2.408.594 [id number] Univers 08:08:00 10:00:00 Herminia DERAS 350.1.13.10 i ty of [facility] 4.2.7.[address] [place] [id number] 2023-01-27 2023-01-27 Emergency X DAREK, [facility] ERT [id number] Univers 04:50:00 07:03:00 BESSIE judge [facility] 2023-01-27 2023-01-27 Emergency [facility] 1.2.424.453 [id number] Univers 04:50:00 07:03:00 Bessie DERAS 350.1.13.10 i ty of [facility] 4.2.7.2.686 [facility] [id number] [address] 2023-01-27 2023-01-27 Ahmeek [facility] 1.2.857.775 [id number] Univers 00:00:00 00:00:00 Nomi DERAS 350.1.13.10 i ty of [facility] 4.2.7.2.686 [facility] [id number] Id dic[address] 2023-01-24 2023-01-24 Emergency X [facility] ERT [id number] Univers 12:28:00 16:16:00 STEPHANIE [facility] 2023-01-24 2023-01-24 Emergency [facility] 1.2.011.138 [id number] Univers 12:28:00 16:16:00 Stephanie BRAEDEN 350.1.13.10 i ty of Meek [facility] 4.2.7.2.686 [facility] [id number] [address] 2023-01-23 2023-01-23 Emergency Sandie [facility] ERT [id number] Univers 19:02:00 20:36:00 IZA [facility] 2023-01-23 2023-01-23 Emergency [facility] 1.2.478.315 [id number] Univers 19:02:00 20:36:00 Iza Apple BRAEDEN 350.1.13.10 i ty of [facility] 4.2.7.2.686 [facility] [id number] [address] 2023-01-22 2023-01-22 Emergency X [facility] ERT [id number] Univers 18:24:00 19:55:00 IZA itdeepa [facility] 2023-01-22 2023-01-22 Emergency [facility] 1.2.835.009 [id number] Univers 18:24:00 19:55:00 Iza OGLESBYRADHA 350.1.13.10 i ty of [facility] 4.2.7.2.686 [facility] [id number] [facility] [address] 2023-01-21 2023-01-21 Emergency X [facility] ERT [id number] Univers 14:20:00 18:14:00 [place] judge [facility] 2023-01-21 2023-01-21 Emergency [facility] 1.2.289.236 [id number] Univers 14:20:00 18:14:00 Louis OGLESBYRADHA 350.1.13.10 i ty of [place] 4.2.7.2.686 [facility] [id number] [facility] [address] 2023-01-20 2023-01-20 Transition GARY Frye 1.2.840.114 [id number] Univers 00:00:00 00:00:00 of Mack SHAIKH 350.1.13.10 it y of [place] 4.2.7.2.686 [facility] [id number] [facility] [address] 2023-01-19 2023-01-19 [facility] 1.2.84 0.114 [id number] Univers 01:15:00 19:40:00 Encounter Iza Varma MENDELRADHA 350.1.13.10 ity of Agapito Hackett [place] 4.2.7.2.686 [facility] [id number] [place] [address] Branch 2023-01-17 2023-01-17 Emergency [facility] ERT [id number] Univers 05:57:00 07:37:00 MARISOL ity [facility] 2023-01-17 2023-01-17 Emergency [facility] 1.2.288.922 [id number] Univers 05:57:00 07:37:00 Marisol OGLESBYRADHA 350.1.13.10 ity of [facility] 4.2.7.2.686 [facility] [id number] [place] [address] Branch 2023-01-17 2023-01-17 Emergency X [facility] ERT [id number] Univers 05:57:00 07:37:00 VLADISLAVDAIJA ity [facility] 2023-01-10 2023-01-10 [facility] 1.2.840.114 [id number] Univers 00:00:00 00:00:00 (Out) Herminia [employer] 350.1.13.10 it y of [place] 4.2.7.2.686 Nelson as JACKIE?BLEA [id number] [address] OFFICE [facility] 2023-01-07 2023-01-07 [facility] [id number] Univers 14:30:00 15:25:56 HERMINIA judge [facility] 2023-01-07 2023-01-07 Office [facility] 1.2.840.114 [id number] Univers 14:30:00 15:25:56 Visit Herminia [employer] 350.1.13.10 it y of [place] 4.2.7.2.686 Nelson as JACKIE?BLEA [id number] [address] OFFICE [facility] 2022-12-26 2022-12-26 Emergency X [facility] ERT [id number] Univers 10:50:00 14:12:00 [facility] 2022-12-26 2022-12-26 Emergency [facility] 1.2.816.942 [id number] Univers 10:50:00 14:12:00 Iza S [place] 350.1.13.10 i ty of [place] [id number] [facility] [address] 2022-12-14 2022-12-14 Outpatient R NOMI MARY [facility] [id number] Univers 11:30:00 11:30:00 NOMI MARY i ty of [facility] 2022-12-14 2022-12-14 Transition GARY Frye 1.2.840.114 [id number] Univers 00:00:00 00:00:00 of Care Taylorrober GUADARRAMAY 350.1.13.10 it [place] [id number] [facility] [address] 2022-12-10 2022-12-12 Outpatient X KARRI [facility] [id number] Univers 18:49:00 14:35:00 TRAVIS ity of [facility] 2022-12-10 2022-12-12 [facility] Louis Hong [facility] 1.2.840.1 [id number] Univers 18:49:00 14:35:00 Encounter Dedrick Toth 350.1.13. 10 ity of Travis Zeng [place] 4.2.7.2.686 [facility] [id number] [facility] [address] 2022-12-10 2022-12-10 Case Mathew [facility] 1.2.840.114 [id number] Univers 00:00:00 00:00:00 Management Nomi DERAS 350.1.13.10 ity of [place] [id number] [facility] 2022-12-10 2022-12-10 Transition GARY Caro 1.2.840.114 [id number] Univers 00:00:00 00:00:00 of Care Cecy SHAIKH 350.1.13.10 [place] [phone] [facility] [address] 2022-12-09 2022-12-09 Orders Doctor ELDER 1.2.840.114 [id number] Univers 00:00:00 00:00:00 Only Unassigned, ASHER 350.1.13.10 ity of [place] [facility] 4.2.7.2.686 [place] as [phone] [facility] [address] 2022-12-06 2022-12-06 Transition GARY Frye 1.2.840.114 [id number] Univers 00:00:00 00:00:00 of Care Taylor B SHAIKH 350.1.13.10 [place] [id number] [facility] [address] 2022-12-02 2022-12-04 [facility] Carlo Maki [facility] 1.2.8 40.114 [id number] Univers 00:13:00 12:30:00 Encounter Beny Abi [facility] 350.1.13.10 ity of Clive Contreras 4.2.7.2.686 [facility] [phone] [facility] [address] ([facility]) 2022-12-01 2022-12-01 Emergency U ERNESTO PIPER [facility] ERT [id number] Univers 05:32:00 09:08:00 [facility] 2022-12-01 2022-12-01 Emergency Marisol Devlin [facility] 1.2.840 .114 [id number] Univers 05:32:00 09:08:00 Ernesto Piper BRAEDEN 350.1.13.10 ity of Krissy Powers 4.2.7.2.686 [facility] [phone] [place] [id number] [place] 2022-12-01 2022-12-01 Emergency U ERNESTO PIPER [facility] ERT [id number] Univers 05:32:00 09:08:00 [facility] HEALTHERNESTO BLACKMAN [facility] 2022-11-26 2022-11-28 Outpatient X DHARMESH [facility] PARRISH [id number] Univers 22:55:00 13:50:00 [facility] 2022-11-28 Hospital ZulayBessie apple [facility] 1.2.840.11 4 [id number] Univers 22:55:00 13:50:00 Encounter María Diaz 350.1.13.10 ity of [place] 4.2.7.2.686 [facility] [phone] [place] 506680 [place] 2022-11-19 2022-11-19 Emergency X [facility] ERT [id number] Univers 02:17:00 05:12:00 IZA [facility] 2022-11-19 2022-11-19 Emergency Avani [facility] 1.2.414.552 [id number] Univers 02:17:00 05:12:00 Iza DERAS 350.1.13.10 i ty of [place] 4.2.7.2.686 [facility] [id number] [facility] 084 [place] 2022-11-18 2022-11-18 Emergency X [facility] ERT [id number] Univers 18:52:00 20:29:00 FRANCISCA judge [facility] 2022-11-18 2022-11-18 Emergency [facility] 1.2.840.114 [id number] Univers 18:52:00 20:29:00 Francisca DERAS 350.1.13.10 ity of [place] 4.2.7.2.6 [facility] [id number] [facility] 084 [place] 2022-11-17 2022-11-17 Telephone [facility] 1.2.440.334 [id number] Univers 00:00:00 00:00:00 Nomi DERAS 350.1.13.10 i ty [facility] 4.2.7.2.686 [facility] PROFESSIO [phone] Id dicCharles V[place] 656005 [facility] 2022-11-12 2022-11-12 Transition GARY Frye 1.2.840.114 [id number] Univers 00:00:00 00:00:00 of Care Taylor SHAIKH 350.1.13.10 it y of [place] 4.2.7.2.[address] [place] [address] [id number] [facility] 403 [place] 2022-11-09 2022-11-11 Inpatient X KARRI [facility] [place] [id number] Univers 01:32:00 13:35:00 TRAVIS judge [facility] 2022-11-09 2022-11-11 [place] [facility] 1.2.840. 114 [id number] Univers 01:32:00 13:35:00 Encounter Travis Zeng 350.1.13.10 ity of [place] 4.2.7.2.6 [facility] [id number] [place] 506681 [place] 2021-05-22 2021-05-22 Telephone [facility] 1.2.201.528 [id number] Univers 00:00:00 00:00:00 Jeanette Deras 350.1.13.10 [place] [phone] Id dical [facility] 204 [facility] 2021-05-20 2021-05-20 Lead Programmer Anshu Macedo Lab Main [facility] 1.2.8 40.114 [id number] Univers 14:28:38 14:43:38 Visit Gokul Turner 350.1.13.10 [place].2.686 [place] [phone] Id dical [facility] 353 [facility] 2021-05-20 2021-05-20 [facility] [id number] Univers 14:30:00 14:30:00 GOKUL ity [facility] 2021-05-20 2021-05-20 Orders Doctor ELDER 1.2.840.114 [id number] Univers 00:00:00 00:00:00 Only Unassigned, ASHER 350.1.13.10 ity of [place] [facility] 4.2.7.2.686 Nelson as [phone] [address] 2021-05-20 2021-05-20 Telephone [facility] 1.2.840.114 [id number] Univers 00:00:00 00:00:00 [facility] 350.1.13.10 i [place] [phone] Id dical [facility] 204 [facility] 2020-12-29 2020-12-29 Office [facility] 1.2.840.114 [id number] Univers 10:12:45 11:07:51 [facility] 350.1.13.10 i [place] [phone] Id dical [facility] 204 [facility] 2020-12-29 2020-12-29 Outpatient [facility] [id number] Univers 10:15:00 10:15:00 [facility] 2020-12-18 2020-12-18 Office [facility] 1.2.840.114 [id number] Univers 13:36:17 14:58:35 Visit Rm, Adc Surg Spec Procedure [place] 3 50.1.13.10 [place].2.[place] [id number] Id dical nal [address] [place] [address] 2020-12-18 2020-12-18 Outpatient R [facility]UE [facility] [id number] Univers 14:00:00 14:00:00 GOKUL ity [facility] 2020-12-16 2020-12-16 [facility] [id number] Univers 00:00:00 00:00:00 JEANETTE [facility] 2020-12-16 2020-12-16 Telephone [facility] 1.2.025.150 [id number] Univers 00:00:00 00:00:00 Jeanette Deras 350.1.13.10 [place].2.[place] [id number] Id dical nal [address] [place] [address] 2020-12-12 2020-12-12 Emergency [facility] 1.2.840.[id number] [facility] 11:36:00 13:42:00 Francisca Deras 350.1.13.10 [place].2.686 [place] [id number] [address] 2020-12-12 2020-12-12 Telephone [facility] 1.2.541.612 [id number] 1545 Univers 00:00:00 00:00:00 Jeanette Deras 350.1.13.10 [place].2.[place] [phone] Id dical nal [address] [place] [address] 2020-12-08 2020-12-08 Office [facility] 1.2.840.114 [id number] Univers 13:28:10 14:09:14 Visit Jeanette Deras 350.1.13.10 [place]2.7.2.[place] [phone] Id dical nal [address] [place] [address] 2020-12-08 2020-12-08 Outpatient R [facility] [id number] Univers 13:30:00 13:30:00 JEANETTE judge [facility] 2020-12-08 2020-12-08 Orders Doctor ELDER 1.2.840.114 [id number] Univers 00:00:00 00:00:00 Only Unassigned, ASHER 350.1.13.10 ity of [place] [facility] 4.2.7.2.686 [place] [id number] [address] 2020-12-07 2020-12-07 Nurse ELDER Perez 1Pvaan2.840.114 [id number] Univers 00:00:00 00:00:00 Triage Herminia Apple ASHER 350.1.13.10 ity of HOSPITAL 4.2.7.2.686 [place] [id number] [address] 2020-06-19 2020-06-19 Outpatient Pepper, [facility] [id number] [facility] 13:30:00 13:30:[address] 2020-02-20 2020-02-20 Orders Doctor ELDER 1.2.840.114 [id number] 00:00:00 00:00:00 Only Unassigned, ASHER 350.1.13.10 [place] [facility] 4.2.7.2.686 [id number] 009 2020-02-20 2020-02-20 Orders Doctor FRIEDMAN 1.2.840.114 [id number] Univers 00:00:00 00:00:00 Only Unassigned, ASHER 350.1.13.10 ity of [place] [facility] 4.2.7.2.686 [place] [id number] [address] 2019-08-28 2019-08-28 Emergency X MARQUIS [facility] ERT [id number] Univers 08:25:33 11:54:00 HERMINIA mottdeepa [facility] 2019-08-24 2019-08-24 Emergency X SINGER [facility] ERT [id number] Univers 01:43:17 03:52:00 LOUIS mottdeepa [facility] 2019-05-03 2019-05-04 [facility] 1.2.119.410 [id number] 23:28:18 00:27:00 Ramesh Deras 350.1.13.10 [place] 4.2.7.2.686 [place] [id number] 084 2019-05-03 2019-05-04 Emergency Huang, [facility] 1.2.737.[id number] [facility] 23:28:18 00:27:00 Ramesh Deshpande Braeden 350.1.13.10 i ty of [place] 4.2.7.2.686 [facility] [place] [phone] [address] 2019-05-03 2019-05-03 Orders Doctor ELDER 1.2.840.114 [id number] 00:00:00 00:00:00 Only Unassigned, ASHER 350.1.13.10 [place] [facility] 4.2.7.2.686 [id number] 009 2019-05-03 2019-05-03 Orders Doctor ELDER 1.2.840.114 [id number] Univers 00:00:00 00:00:00 Only Unassigned, ASHER 350.1.13.10 ity of [place] [facility] 4.2.7.2.686 [facility] [id number] [address] Results Test Description Test Time Test Comments Results Result Comments Source GLUCOSE BEDSIDE TESTING 2023-03-19 11:23:00 Test Item Value Reference Range Interpretation Comme nts GLUCOSE BEDSIDE TESTING (test code = GLUBED) 112 MG/DL 60-99 H GLUCOSE BEDSIDE [id number] 07:35:00 Test Item Value Reference Range Interpretation Comments GLUCOSE BEDSIDE TESTING (test code 170 MG/DL 60-99 H = GLUBED) VITAMIN [id number] 15:12:00 Test Item Value Reference Range Interpretation Comments VITAMIN B12 (test code = VITB12) 738 pg/mL 239-931 N FOLIC [id number] 15:12:00 Test Item Value Reference Range Interpretation Comments FOLIC ACID (test 4.9 ng/mL REFERENCE V ALUES: code = FOLR) NORMAL: 2.76 - >20 ng/ML DEFICIENT: 1.04 - 2.79 ng/ML COMPREHENSIVE METABOLIC [id number] 11:38:00 Test Item Value Reference Range Interpretation [...] the recommended for keon for GFRby the [facility] for Adults.The GFR will not [...] PHOSPHATASE (test code = ALKP) CBC W/AUTO [id number] 11:24:00 Test Item Value Reference Range Interpretation [...] 0.00 K/mm3 0.0-0.1 N NRBC#) ARTERIAL BLOOD [id number] 17:25:00 Test Item Value Reference Range Interpretation [...] mated message] code = TEMPA) The system [email or web address] generated this result transmitted ref erence range: 37. The reference range was not used to int erpret this result as normal/abnormal . ABG SITE (test code = LR SITEA) ALLENS TEST (test Y CHECK code = ALLENS) FIO2 (test code = 36 % COHBGFFIO2) [id number] 12:29:00 Test Item Value Reference Range Interpretation Comments PHOSPHOROUS (test code = PHOS) 3.5 MG/DL 2.5-4.5 N ADD ON TEST? [id number] 12:29:00 Test Item Value Reference Range Interpretation Comments MAGNESIUM (test code = MAG) 1.8 MG/DL 1.6-2.3 N ADD ON TEST? YesARTERIAL BLOOD [id number] 12:26:00 Test Item Value Reference Range Interpretation [...] % 0.4-1.5 L = METHGB) VENOUS BLOOD [id number] 11:46:00 Test Item Value Reference Range Interpretation [...] % 0.4-1.5 L = METHGB) BASIC METABOLIC [id number] 07:06:00 Test Item Value Reference Range Interpretation [...] MG/DL 8.4-10.2 L CA) NT PRO-BRAIN NATRIURETIC [id number] 07:06:00 Test Item Value Reference Range Interpretation [...] causes* of NT-p roBNP elevation. -------- -------- [id number] 07:06:00 Test Item Value Reference Range Interpretation Comments TROPONIN-I (test code = TROPI) < 0.012 NG/ML 0.012-0.033 L - XR CHEST [id number] 06:59:00 [facility] 1960 Sex: M Patient Name: JUAN C MONGE Unit No: [id number] EXAMS: CPT CODE: [id number] XR CHEST 1V 73966 EXAMINATION: - XR CHEST 1V HISTORY: Chest [...] t.[email or web address] Orig Print D/T: S: 03/15/2023 (0702) [facility] NAME: JUAN C MONGE [address] PHYS: [place] [address] : 1960 AGE: 62 SEX: M LOC: RUCHI PHONE #: [phone] EXAM DATE: 03/15/2023 STATUS: REGER FAX #: [phone] RADIOLOGY NO: PAGE 1 Signed ReportCBC W/O [id number] 06:42:00 Test Item Value Reference Range Interpretation [...] (test code = 0.00 K/mm3 0.0-0.1 N [facility]#) TROPONIN [id number] 21:12:01 Test Item Value Reference Range Interpretation Comments TROPONIN I (test code = <=0.034 7035389305) OMAYRA (test code = OMAYRA) Reference (Normal) [...] biotin. Lab Interpretation Normal (test code = 24304-9) [facility]. METABOLIC PANEL (05537)2023-02-15 21:00:57 Test Item Value Reference Range Interpretation Comments NA (test code = 133 mmol/L 135-145 L 4965793302) K (test code = 4.5 mmol/L 3.5-5.0 2828898465) CL (test code = 90 mmol/L 98-108 L 8239977103) CO2 TOTAL (test code = 40 mmol/L 23-31 H 4433073774) AGAP (test code = 3 2-16 7772602617) BUN (test code = 25 mg/dL 7-23 H 7804057368) GLUCOSE (test code = 107 mg/dL 70-110 7155798058) CREATININE (test code = 0.88 mg/dL 0.60-1.25 0155177934) TOTAL BILI (test code = 1.6 mg/dL 0.1-1.1 H 7577374618) CALCIUM (test code = 8.9 mg/dL 8.6-10.6 7135214570) T PROTEIN (test code = 6.1 g/dL 6.3-8.2 L 9013462337) ALBUMIN (test code = 3.7 g/dL 3.5-5.0 7400971463) ALK PHOS (test code = 56 U/L 34-122 4404561985) ALTv (test code = 14 U/L 5-50 1742-6) AST(SGOT) (test code = 12 U/L 13-40 L 8962933264) eGFR (test code = 87.2 mL/min/1.73m2 4334806128) OMAYRA (test code = OMAYRA) Association of [...] tests). Lab Interpretation Abnormal (test code = 68087-5) [facility] 21:00:57 Test Item Value Reference Range Interpretation Comments MAGNESIUM (test code = 6725081744) 2.0 mg/dL 1.7-2.4 Lab Interpretation (test code = Normal 00767-3) [facility] WITH [id number] 20:53:39 Test Item Value Reference Range Interpretation Comments WBC (test code = 9.03 See_Comment [Automated 3790-2) message] The sy stem which generated this [...] RDW-SD (test code = 50.1 fL 38.5-51.6 78599-5) RDW-CV (test code = 13.6 % 12.1-15.4 788-0) PLT (test code = 223 See_Comment [Automated 777-3) message] The sy stem which generated this result transmitted reference range : 150 - 328 10*3/ ?L. The reference r pasquale was not used to interpret this result as normal/abnormal . MPV (test code = 12.1 fL 9.8-13.0 06063-7) NRBC/100 WBC (test 0.0 See_Comment [Automat ed code = 7689656355) message] The system which generated this result transmitted reference range : 0.0 - 10.0 /100 WBCs. The refer ence range was not u sed to interpret th is result as normal/abnormal . NRBC x10^3 (test code See_Comment [Auto mated = 3860375898) message] The s ystem which generated this result transmitted reference range : 10*3/?L. The reference range was not used to interpret this result as normal/abnormal . GRAN MAT (NEUT) % 72.8 % (test code = 770-8) IMM GRAN % (test code 0.90 % = 2592182562) LYMPH % (test code = 17.7 % 736-9) MONO % (test code = 7.4 % 5905-5) EOS % (test code = 0.9 % 713-8) BASO % (test code = 0.3 % 706-2) GRAN MAT x10^3(ANC) 6.57 10*3/uL 1.99-6.95 (test code = 1690275356) IMM GRAN x10^3 (test 0.08 10*3/uL 0.00-0.06 H code = 5728315865) LYMPH x10^3 (test code 1.60 10*3/uL 1.09-3.23 = 731-0) MONO x10^3 (test code 0.67 10*3/uL 0.36-1.02 = 742-7) EOS x10^3 (test code = 0.08 10*3/uL 0.06-0.53 711-2) BASO x10^3 (test code 0.03 10*3/uL 0.01-0.09 = 704-7) Lab Interpretation Abnormal (test code = 92960-9) [facility] + LACTIC [id number] 20:11:20 Test Item Value Reference Range Interpretation Comments PH (test code = 7.33 7.32-7.42 3617554506) PCO2 ERVIN (test code = 75 See_Comment H [Auto mated 2936943701) message] The sy stem which generated this result transmitted reference range : 41 - 51 mmHg. The reference range was not used to interpret this result as normal/abnormal . PO2 ERVIN (test code = 20 See_Comment L [Autom ated 3281064832) message] The sy stem which generated this result transmitted reference range : 25 - 40 mmHg. The reference range was not used to interpret this result as normal/abnormal . HCO3 ERVIN (test code = 39 See_Comment H [Auto mated 3822551914) message] The sy stem which generated this result transmitted reference range : 24 - 28 mEq/L. The reference range was not used to interpret this result as normal/abnormal . AC VBE(BEAKER) (test 9.1 mEq/L code = 7424446689) THB ERVIN (test code = 15.9 g/dL 13.5-18.0 1347110809) %O2HB ERVIN (test code = 30.0 % 52.0-63.0 L 0987074524) %COHB ERVIN (test code = 4.1 % 0.0-1.5 H 7552678836) %METHB ERVIN (test code = 0.3 % 0.4-1.5 L 8040094640) VOL%O2 ERVIN (test code = 6.7 % 6.0-12.0 3501519768) NA (test code = 137 mmol/L 135-145 0371896835) K+ (test code = 4.5 mmol/L 3.5-5.0 3911698525) AC CA IONZ (test code = 4.60 mg/dL 4.50-5.30 8829074554) GLUCOSE (test code = 113 mg/dL 70-110 H 9117667285) LACTIC ACID (test code 1.65 mmol/L 0.50-2.20 = 8251704506) Lab Interpretation Abnormal (test code = 71369-5) [facility] [id number] 21:20:05 Test Item Value Reference Range Interpretation Comments TROPONIN I (test code = 0.005 ng/mL <=0.034 3481621416) OMAYRA (test code = OMAYRA) Reference (Normal) [...] biotin. Lab Interpretation Normal (test code = 81671-7) [facility] [id number] 21:17:24 Test Item Value Reference Range Interpretation Comments NT-proBNP (test code = 712 pg/mL <=125 H 9151522130) OMAYRA (test code = OMAYRA) Biotin has been reported to cause a negative bias, interpret results relative to patient's use of biotin. Lab Interpretation (test Abnormal code = 86990-6) [facility] Center[facility]OL[facility] 21:13:47 ALCOHOL<10mg/dL01/31/2023 4:13 PM [facility]<10 Ifdarylb31-101 Toxic>100 Depression of [employer]>400 Fatalities ReportedUnAsp[facility] HospitalCOM. METABOLIC PANEL (57955) 2023-01-31 21:10:01 Test Item Value Reference Range Interpretation Comments NA (test code = 142 mmol/L 135-145 7926847211) K (test code = 4.7 mmol/L 3.5-5.0 8259180416) CL (test code = 99 mmol/L 98-108 6327057122) CO2 TOTAL (test code = 37 mmol/L 23-31 H 2716904048) AGAP (test code = 6 2-16 3239017414) BUN (test code = 30 mg/dL 7-23 H 9443052723) GLUCOSE (test code = 100 mg/dL 70-110 7981817567) CREATININE (test code = 0.61 mg/dL 0.60-1.25 0346322328) TOTAL BILI (test code = 0.6 mg/dL 0.1-1.3 2412357204) CALCIUM (test code = 8.8 mg/dL 8.6-10.6 6700086117) T PROTEIN (test code = 5.9 g/dL 6.3-8.2 L 6203746623) ALBUMIN (test code = 3.5 g/dL 3.5-5.0 5360035255) ALK PHOS (test code = 42 U/L 34-122 9808003013) ALTv (test code = 16 U/L 5-50 1742-6) AST(SGOT) (test code = 12 U/L 13-40 L 9630102270) eGFR (test code = 133.1 mL/min/1.73m2 2069738545) OMAYRA (test code = OMAYRA) Association of [...] tests). Lab Interpretation Abnormal (test code = 58449-4) [facility] WITH [id number] 20:59:58 Test Item Value Reference Range Interpretation Comments WBC (test code = 13.02 See_Comment H [Automated 6690-2) message] The system which generated this result transmit anirudh reference range : 4.20 - 10.70 10*3/?L. The reference range was not used to interpret this result as normal/abnormal . RBC (test code = 4.09 See_Comment L [Automated 289-8) message] The system which generated this result [...] (test code = 61.6 fL 38.5-51.6 H 20608-3) RDW-CV (test code = 16.2 % 12.1-15.4 H 788-0) PLT (test code = 250 See_Comment [Automated 777-3) message] The system which generated this result transmit anirudh reference range : 150 - 328 10*3/ ?L. The reference range was not u sed to interpret th is result as normal/abnormal . MPV (test code = 10.5 fL 9.8-13.0 04581-0) NRBC/100 WBC (test 0.0 See_Comment [Automat ed code = 3516659129) message] The system which generated this result transmit anirudh reference range : 0.0 - 10.0 /100 WBCs. The reference range was not used to interpret this result as normal/abnormal . NRBC x10^3 (test code See_Comment [Auto mated = 4659033075) message] The system which generated this result transmit anirudh reference range : 10*3/?L. The reference range was not used to interpret this result as normal/abnormal . GRAN MAT (NEUT) % 90.9 % (test code = 770-8) IMM GRAN % (test code 1.20 % = 0547677614) LYMPH % (test code = 3.9 % 736-9) MONO % (test code = 3.8 % 5905-5) EOS % (test code = 0.0 % 713-8) BASO % (test code = 0.2 % 706-2) GRAN MAT x10^3(ANC) 11.83 10*3/uL 1.99-6.95 H (test code = 2968521520) IMM GRAN x10^3 (test 0.16 10*3/uL 0.00-0.06 H code = 1163868412) LYMPH x10^3 (test code 0.51 10*3/uL 1.09-3.23 L = 731-0) MONO x10^3 (test code 0.49 10*3/uL 0.36-1.02 = 742-7) EOS x10^3 (test code = 0.06-0.53 L 711-2) BASO x10^3 (test code 0.03 10*3/uL 0.01-0.09 = 704-7) Lab Interpretation Abnormal (test code = 98252-0) [facility] [id number] 11:16:36 Test Item Value Reference Range Interpretation Comments TROPONIN I (test code = 0.002 ng/mL <=0.034 5976204385) OMAYRA (test code = OMAYRA) Reference (Normal) [...] biotin. Lab Interpretation Normal (test code = 87952-3) [facility] [id number] 11:13:18 Test Item Value Reference Range Interpretation Comments NT-proBNP (test code = 112 pg/mL <=125 8216073238) OMAYRA (test code = OMAYRA) Biotin has been reported to cause a negative bias, interpret results relative to patient's use of biotin. Lab Interpretation (test Normal code = 62495-4) [facility] Center[facility]OLIC PANEL (NA, K, CL, CO2, GLUCOSE, BUN, CREATININE, CA)2023-01-27 11:04:56 Test Item Value Reference Range Interpretation Comments NA (test code = 136 mmol/L 135-145 1950841553) K (test code = 4.1 mmol/L 3.5-5.0 4971652750) CL (test code = 96 mmol/L 98-108 L 8241338221) CO2 TOTAL (test code = 34 mmol/L 23-31 H 7764757813) AGAP (test code = 6 2-16 2244979913) BUN (test code = 22 mg/dL 7-23 9616422105) GLUCOSE (test code = 117 mg/dL 70-110 H 3575986464) CREATININE (test code = 0.55 mg/dL 0.60-1.25 L 6356776459) CALCIUM (test code = 8.4 mg/dL 8.6-10.6 L 4674616540) eGFR (test code = 150.0 mL/min/1.73m2 3826300583) OMAYRA (test code = OMAYRA) Association of [...] tests). Lab Interpretation Abnormal (test code = 63052-4) [facility] WITH [id number] 10:38:33 Test Item Value Reference Range Interpretation Comments WBC (test code = 9.56 See_Comment [Automated 8317-2) message] The sy stem which generated this result transmitted reference range : 4.20 - 10.70 10*3/?L. The reference range was not used to interpret this result as normal/abnormal . RBC (test code = 4.31 See_Comment [Automated 157-5) message] The sy stem which generated this [...] (test code = 56.7 fL 38.5-51.6 H 24826-2) RDW-CV (test code = 15.3 % 12.1-15.4 788-0) PLT (test code = 220 See_Comment [Automated 777-3) message] The sy stem which generated this result transmitted reference range : 150 - 328 10*3/ ?L. The reference r pasquale was not used to interpret this result as normal/abnormal . MPV (test code = 10.6 fL 9.8-13.0 00721-7) NRBC/100 WBC (test 0.0 See_Comment [Automat ed code = 1689901380) message] The system which generated this result transmitted reference range : 0.0 - 10.0 /100 WBCs. The refer ence range was not u sed to interpret th is result as normal/abnormal . NRBC x10^3 (test code See_Comment [Auto mated = 7051963326) message] The s ystem which generated this result transmitted reference range : 10*3/?L. The reference range was not used to interpret this result as normal/abnormal . GRAN MAT (NEUT) % 60.0 % (test code = 770-8) IMM GRAN % (test code 0.70 % = 3697888923) LYMPH % (test code = 26.5 % 736-9) MONO % (test code = 11.4 % 5905-5) EOS % (test code = 0.9 % 713-8) BASO % (test code = 0.5 % 706-2) GRAN MAT x10^3(ANC) 5.73 10*3/uL 1.99-6.95 (test code = [id number]) IMM GRAN x10^3 (test 0.07 10*3/uL 0.00-0.06 H code = [id number]) LYMPH x10^3 (test code 2.53 10*3/uL 1.09-3.23 = 731-0) MONO x10^3 (test code 1.09 10*3/uL 0.36-1.02 H = 742-7) EOS x10^3 (test code = 0.09 10*3/uL 0.06-0.53 711-2) BASO x10^3 (test code 0.05 10*3/uL 0.01-0.09 = 704-7) Lab Interpretation Abnormal (test code = 89762-0) [id number]:51:59 Test Item Value Reference Range Interpretation Comments AMMONIA (test code = [id number]) 9-33 L Lab Interpretation (test code = Abnormal 88533-0) [facility] [id number] 18:40:53 Test Item Value Reference Range Interpretation Comments PH (test code = 2) 7.43 7.35-7.45 PCO2 (test code = 53 See_Comment H [Automate d [id number]) message] The sy stem which generated this result transmitted reference range : 35 - 45 mmHg. The reference range was not used to interpret this result as normal/abnormal . PO2 (test code = 49 See_Comment L [Automated [id number]) message] The sy stem which generated this result transmitted reference range : 80 - 100 mmHg. The reference range was not used to interpret this result as normal/abnormal . HCO3 (test code = 34 See_Comment H [Automate d [id number]) message] The sy stem which generated this result transmitted reference range : 22 - 26 mEq/L. The reference range was not used to interpret this result as normal/abnormal . BE (test code = 7.8 See_Comment H [Automated 1151121000) message] The sy stem which generated this result transmitted reference range : -3.0 - 3.0 mEq/ L. The reference r pasquale was not used to interpret this result as normal/abnormal . LACTIC ACID (test code 0.92 mmol/L 0.50-2.20 = 5271622312) Lab Interpretation Abnormal (test code = 93941-7) [facility] [id number] 18:28:26 Test Item Value Reference Range Interpretation Comments TROPONIN I (test code = 0.003 ng/mL <=0.034 2059089378) OMAYRA (test code = OMAYRA) Reference (Normal) [...] biotin. Lab Interpretation Normal (test code = 79684-9) [facility] [id number] 18:25:29 Test Item Value Reference Range Interpretation Comments NT-proBNP (test code = 376 pg/mL <=125 H 6699560142) OMAYRA (test code = OMAYRA) Biotin has been reported to cause a negative bias, interpret results relative to patient's use of biotin. Lab Interpretation (test Abnormal code = 56977-6) [facility] (01421)2023-01-24 18:24:03 Test Item Value Reference Range Interpretation Comments NA (test code = 135 mmol/L 135-145 3173868755) K (test code = 4.0 mmol/L 3.5-5.0 4705072945) CL (test code = 90 mmol/L 98-108 L 8271453062) CO2 TOTAL (test code = 43 mmol/L 23-31 H 8986860130) AGAP (test code = 2 2-16 7975363666) BUN (test code = 12 mg/dL 7-23 5052071997) GLUCOSE (test code = 92 mg/dL 70-110 5175248209) CREATININE (test code = 0.58 mg/dL 0.60-1.25 L 2814876250) TOTAL BILI (test code = 1.3 mg/dL 0.1-1.1 H 5338805394) CALCIUM (test code = 8.6 mg/dL 8.6-10.6 8666135526) T PROTEIN (test code = 6.0 g/dL 6.3-8.2 L 9051329287) ALBUMIN (test code = 3.6 g/dL 3.5-5.0 6232304946) ALK PHOS (test code = 52 U/L 34-122 2700662082) ALTv (test code = 17 U/L 5-50 1742-6) AST(SGOT) (test code = 10 U/L 13-40 L 1171605111) eGFR (test code = 141.1 mL/min/1.73m2 5234577988) OMAYRA (test code = OMAYRA) Association of [...] tests). Lab Interpretation Abnormal (test code = 87773-0) [facility]OL[facility] 18:23:38 ALCOHOL<10mg/dL01/24/2023 1:23 PM [facility]10 Tnuamsky60-150 Toxic>100 Depression of [employer]>400 Fatalities ReportedUnAsp[facility] HospitalCBC with Krbmmzxihmgi0725-50-73 18:09:00 Test Item Value Reference Range Interpretation [...] (test code = 59.7 fL 38.5-51.6 H 71076-0) RDW-CV (test code = 15.8 % 12.1-15.4 H 788-0) PLT (test code = 239 See_Comment [Automated 777-3) message] The sy stem which generated this result transmitted reference range : 150 - 328 10*3/ ?L. The reference r pasquale was not used to interpret this result as normal/abnormal . MPV (test code = 10.5 fL 9.8-13.0 66627-5) NRBC/100 WBC (test 0.0 See_Comment [Automat ed code = 8355250847) message] The system which generated this result transmitted reference range : 0.0 - 10.0 /100 WBCs. The refer ence range was not u sed to interpret th is result as normal/abnormal . NRBC x10^3 (test code See_Comment [Auto mated = 5607833254) message] The s ystem which generated this result transmitted reference range : 10*3/?L. The reference range was not used to interpret this result as normal/abnormal . GRAN MAT (NEUT) % 64.5 % (test code = 770-8) IMM GRAN % (test code 0.40 % = 9578587795) LYMPH % (test code = 23.1 % 736-9) MONO % (test code = 9.8 % 5905-5) EOS % (test code = 1.8 % 713-8) BASO % (test code = 0.4 % 706-2) GRAN MAT x10^3(ANC) 5.06 10*3/uL 1.99-6.95 (test code = 7342581435) IMM GRAN x10^3 (test 0.03 10*3/uL 0.00-0.06 code = 8890169709) LYMPH x10^3 (test code 1.81 10*3/uL 1.09-3.23 = 731-0) MONO x10^3 (test code 0.77 10*3/uL 0.36-1.02 = 742-7) EOS x10^3 (test code = 0.14 10*3/uL 0.06-0.53 711-2) BASO x10^3 (test code 0.03 10*3/uL 0.01-0.09 = 704-7) Lab Interpretation Abnormal (test code = 29230-1) [facility]OLIC [facility] (83436)2023-01-21 21:33:50 Test Item Value Reference Range Interpretation Comments NA (test code = 136 mmol/L 135-145 0523999401) K (test code = 4.3 mmol/L 3.5-5.0 2680159127) CL (test code = 95 mmol/L 98-108 L 3281457942) CO2 TOTAL (test code = 38 mmol/L 23-31 H 0895546522) AGAP (test code = 3 2-16 6810302699) BUN (test code = 17 mg/dL 7-23 5172864138) GLUCOSE (test code = 102 mg/dL 70-110 0862844021) CREATININE (test code = 0.62 mg/dL 0.60-1.25 9161951286) TOTAL BILI (test code = 0.8 mg/dL 0.1-1.4 2952741157) CALCIUM (test code = 7.8 mg/dL 8.6-10.6 L 5251576447) T PROTEIN (test code = 4.9 g/dL 6.3-8.2 L 1895486523) ALBUMIN (test code = 3.0 g/dL 3.5-5.0 L 7571479534) ALK PHOS (test code = 45 U/L 34-122 7655828991) ALTv (test code = 13 U/L 5-50 1742-6) AST(SGOT) (test code = 11 U/L 13-40 L 8130737833) eGFR (test code = 130.6 mL/min/1.73m2 6891648977) OMAYRA (test code = OMAYRA) Association of [...] tests). Lab Interpretation Abnormal (test code = 28421-1) [facility] CenterTROPONIN [id number] 21:11:45 Test Item Value Reference Range Interpretation Comments TROPONIN I (test code = 0.019 ng/mL <=0.034 9358940168) OMAYRA (test code = OMAYRA) Reference (Normal) [...] biotin. Lab Interpretation Normal (test code = 31511-4) [facility] [id number] 21:08:47 Test Item Value Reference Range Interpretation Comments NT-proBNP (test code = 266 pg/mL <=125 H Hemol yzed 4159313110) specimen OMAYRA (test code = OMAYRA) Biotin has been reported to cause a negative bias, interpret results relative to patient's use of biotin. Lab Interpretation Abnormal (test code = 90821-0) [facility] CenterCBC WITH [id number] 20:40:24 Test Item Value Reference Range Interpretation Comments WBC (test code = 6.78 See_Comment [Automated 6297-2) message] The sy stem which generated this result transmitted reference range : 4.20 - 10.70 10*3/?L. The reference range was not used to interpret this result as normal/abnormal . RBC (test code = 4.47 See_Comment [Automated 575-6) message] The sy stem which generated this [...] (test code = 60.4 fL 38.5-51.6 H 79239-9) RDW-CV (test code = 16.2 % 12.1-15.4 H 788-0) PLT (test code = 215 See_Comment [Automated 777-3) message] The sy stem which generated this result transmitted reference range : 150 - 328 10*3/ ?L. The reference r pasqaule was not used to interpret this result as normal/abnormal . MPV (test code = 10.9 fL 9.8-13.0 67554-5) NRBC/100 WBC (test 0.0 See_Comment [Automat ed code = 1609921269) message] The system which generated this result transmitted reference range : 0.0 - 10.0 /100 WBCs. The refer ence range was not u sed to interpret th is result as normal/abnormal . NRBC x10^3 (test code See_Comment [Auto mated = 6360547119) message] The s ystem which generated this result transmitted reference range : 10*3/?L. The reference range was not used to interpret this result as normal/abnormal . GRAN MAT (NEUT) % 75.4 % (test code = 770-8) IMM GRAN % (test code 0.40 % = 0451873520) LYMPH % (test code = 15.3 % 736-9) MONO % (test code = 7.7 % 5905-5) EOS % (test code = 0.9 % 713-8) BASO % (test code = 0.3 % 706-2) GRAN MAT x10^3(ANC) 5.11 10*3/uL 1.99-6.95 (test code = 7176672782) IMM GRAN x10^3 (test 0.03 10*3/uL 0.00-0.06 code = 6937112018) LYMPH x10^3 (test code 1.04 10*3/uL 1.09-3.23 L = 731-0) MONO x10^3 (test code 0.52 10*3/uL 0.36-1.02 = 742-7) EOS x10^3 (test code = 0.06 10*3/uL 0.06-0.53 711-2) BASO x10^3 (test code 0.01-0.09 = 704-7) Lab Interpretation Abnormal (test code = 18761-2) [facility] Mmj-HZO1757-70-03 08:49:53 Test Item Value Reference Range Interpretation Comments NT-proBNP (test code = 158 pg/mL <=125 H 6705284478) OMAYRA (test code = OMAYRA) Biotin has been reported to cause a negative bias, interpret results relative to patient's use of biotin. Lab Interpretation (test Abnormal code = 37701-6) [facility] CenterD-Wvmsl9326-17-90 08:44:10 Test Item Value Reference Interpretation Comments Range D-DIMER (test code = See_Comment [Autom ated 4779773467) message] The system which generated this result [...] diagnosis. Lab Interpretation Normal (test code = 54644-8) [facility] METABOLIC PANEL (NA, K, CL, CO2, GLUCOSE, BUN, CREATININE, CA)2023-01-19 08:41:13 Test Item Value Reference Range Interpretation Comments NA (test code = 134 mmol/L 135-145 L 8710147028) K (test code = 5.3 mmol/L 3.5-5.0 H 9220098823) CL (test code = 91 mmol/L 98-108 L 6770265777) CO2 TOTAL (test code = 40 mmol/L 23-31 H 1177321029) AGAP (test code = 3 2-16 7186070230) BUN (test code = 14 mg/dL 7-23 8229834346) GLUCOSE (test code = 125 mg/dL 70-110 H 4619917820) CREATININE (test code = 0.64 mg/dL 0.60-1.25 1398650795) CALCIUM (test code = 8.5 mg/dL 8.6-10.6 L 5525759676) eGFR (test code = 125.9 mL/min/1.73m2 3957913636) OMAYRA (test code = OMAYRA) Association of [...] tests). Lab Interpretation Abnormal (test code = 24286-0) [facility] WITH [id number] 08:27:33 Test Item Value Reference Range Interpretation [...] (test code = 58.4 fL 38.5-51.6 H 24237-9) RDW-CV (test code = 15.9 % 12.1-15.4 H 788-0) PLT (test code = 211 See_Comment [Automated 777-3) message] The sy stem which generated this result transmitted reference range : 150 - 328 10*3/ ?L. The reference r pasquale was not used to interpret this result as normal/abnormal . MPV (test code = 10.2 fL 9.8-13.0 81438-4) NRBC/100 WBC (test 0.0 See_Comment [Automat ed code = 1625956304) message] The system which generated this result transmitted reference range : 0.0 - 10.0 /100 WBCs. The refer ence range was not u sed to interpret th is result as normal/abnormal . NRBC x10^3 (test code See_Comment [Auto mated = 3746934019) message] The [employer] which generated this result transmitted reference range : 10*3/?L. The reference range was not used to interpret this result as normal/abnormal . GRAN MAT (NEUT) % 81.2 % (test code = 770-8) IMM GRAN % (test code 0.50 % = 6581202577) LYMPH % (test code = 10.1 % 736-9) MONO % (test code = 7.5 % 5905-5) EOS % (test code = 0.5 % 713-8) BASO % (test code = 0.2 % 706-2) GRAN MAT x10^3(ANC) 8.16 10*3/uL 1.99-6.95 H (test code = 0868362338) IMM GRAN x10^3 (test 0.05 10*3/uL 0.00-0.06 code = 2765862671) LYMPH x10^3 (test code 1.01 10*3/uL 1.09-3.23 L = 731-0) MONO x10^3 (test code 0.75 10*3/uL 0.36-1.02 = 742-7) EOS x10^3 (test code = 0.05 10*3/uL 0.06-0.53 L 711-2) BASO x10^3 (test code 0.01-0.09 = 704-7) Lab Interpretation Abnormal (test code = 46632-4) [facility] CenterNELA [id number] 12:09:33 Test Item Value Reference Range Interpretation Comments TROPONIN I (test code = 0.004 ng/mL <=0.034 3542473357) OMAYRA (test code = OMAYRA) Reference (Normal) [...] biotin. Lab Interpretation Normal (test code = 44127-4) [facility] [id number] 12:06:16 Test Item Value Reference Range Interpretation Comments NT-proBNP (test code = 135 pg/mL <=125 H 8812053308) OMAYRA (test code = OMAYRA) Biotin has been reported to cause a negative bias, interpret results relative to patient's use of biotin. Lab Interpretation (test Abnormal code = 68035-2) [facility]. Metabolic Panel (29013)2023-01-17 11:57:36 Test Item Value Reference Range Interpretation Comments NA (test code = 133 mmol/L 135-145 L 8370026971) K (test code = 5.0 mmol/L 3.5-5.0 9198077408) CL (test code = 91 mmol/L 98-108 L 0548947965) CO2 TOTAL (test code = 33 mmol/L 23-31 H 6046409586) AGAP (test code = 9 2-16 3004498140) BUN (test code = 10 mg/dL 7-23 3356723774) GLUCOSE (test code = 104 mg/dL 70-110 5737306117) CREATININE (test code = 0.63 mg/dL 0.60-1.25 3787100702) TOTAL BILI (test code = 1.2 mg/dL 0.1-1.1 H 2720013464) CALCIUM (test code = 9.0 mg/dL 8.6-10.6 0516725530) T PROTEIN (test code = 6.9 g/dL 6.3-8.2 8821910233) ALBUMIN (test code = 4.4 g/dL 3.5-5.0 1168642876) ALK PHOS (test code = 76 U/L 34-122 9592715941) ALTv (test code = 13 U/L 5-50 1742-6) AST(SGOT) (test code = 13 U/L 13-40 9956363652) eGFR (test code = 128.2 mL/min/1.73m2 7727748095) OMAYRA (test code = OMAYRA) Association of [...] tests). Lab Interpretation Abnormal (test code = 14670-4) [facility] with [id number] 11:30:52 Test Item Value Reference Range Interpretation Comments WBC (test code = 9.66 See_Comment [Automated 6605-2) message] The sy stem which generated this result transmitted reference range : 4.20 - 10.70 10*3/?L. The reference range was not used to interpret this result as normal/abnormal . RBC (test code = 5.00 See_Comment [Automated 809-8) message] The sy stem which generated this [...] (test code = 56.6 fL 38.5-51.6 H 44906-2) RDW-CV (test code = 15.4 % 12.1-15.4 788-0) PLT (test code = 261 See_Comment [Automated 777-3) message] The sy stem which generated this result transmitted reference range : 150 - 328 10*3/ ?L. The reference r pasquale was not used to interpret this result as normal/abnormal . MPV (test code = 10.4 fL 9.8-13.0 65452-9) NRBC/100 WBC (test 0.0 See_Comment [Automat ed code = 2427250075) message] The system which generated this result transmitted reference range : 0.0 - 10.0 /100 WBCs. The refer ence range was not u sed to interpret th is result as normal/abnormal . NRBC x10^3 (test code See_Comment [Auto mated = 9563803761) message] The s ystem which generated this result transmitted reference range : 10*3/?L. The reference range was not used to interpret this result as normal/abnormal . GRAN MAT (NEUT) % 58.9 % (test code = 770-8) IMM GRAN % (test code 0.40 % = 6655618637) LYMPH % (test code = 28.6 % 736-9) MONO % (test code = 10.5 % 5905-5) EOS % (test code = 0.9 % 713-8) BASO % (test code = 0.7 % 706-2) GRAN MAT x10^3(ANC) 5.69 10*3/uL 1.99-6.95 (test code = 5926475016) IMM GRAN x10^3 (test 0.04 10*3/uL 0.00-0.06 code = 0730063363) LYMPH x10^3 (test code 2.76 10*3/uL 1.09-3.23 = 731-0) MONO x10^3 (test code 1.01 10*3/uL 0.36-1.02 = 742-7) EOS x10^3 (test code = 0.09 10*3/uL 0.06-0.53 711-2) BASO x10^3 (test code 0.07 10*3/uL 0.01-0.09 = 704-7) Lab Interpretation Abnormal (test code = 19542-7) [facility] [id number] 10:20:57 Test Item Value Reference Range Interpretation Comments NT-proBNP (test code = 473 pg/mL <=125 H 2389394611) OMAYRA (test code = OMAYRA) Biotin has been reported to cause a negative bias, interpret results relative to patient's use of biotin. Lab Interpretation (test Abnormal code = 41985-6) [facility] CenterLIPID PANEL (40277)(TOTAL CHOLESTEROL, TRIGLYCERIDES, HDL)2022-12-12 10:18:39 Test Item Value Reference Range Interpretation Comments CHOL (test code = 8666387608) 133 mg/dL 120-200 HDL (test code = 8547311218) 38 mg/dL >=40 L HDLC RATIO (test code = 7329613304) 3.5 <=5.0 TRIG (test code = 5589919964) 57 mg/dL 30-170 LDL CHOL (test code = 23158-3) 84 mg/dL <=160 VLDL (test code = 6812479195) 11 mg/dL 5-60 Lab Interpretation (test code = Abnormal 51902-4) [facility] CenterMAGNESIUM2023-03-26 10:18:19 Test Item Value Reference Range Interpretation Comments MAGNESIUM (test code = 1251465922) 2.0 mg/dL 1.7-2.4 Lab Interpretation (test code = Normal 12415-5) [facility] CenterBAS[facility]OLIC [facility] (NA, K, CL, CO2, GLUCOSE, BUN, CREATININE, CA)2022-12-12 10:18:14 Test Item Value Reference Range Interpretation Comments NA (test code = 130 mmol/L 135-145 L 6959583116) K (test code = 3.7 mmol/L 3.5-5.0 2681759115) CL (test code = 89 mmol/L 98-108 L 2957016637) CO2 TOTAL (test code = 37 mmol/L 23-31 H 1344497567) AGAP (test code = 4 2-16 6273701329) BUN (test code = 13 mg/dL 7-23 7561892616) GLUCOSE (test code = 120 mg/dL 70-110 H 4894047919) CREATININE (test code = 0.56 mg/dL 0.60-1.25 L 3495276932) CALCIUM (test code = 8.3 mg/dL 8.6-10.6 L 8400302498) eGFR (test code = 146.9 mL/min/1.73m2 4336900146) OMAYRA (test code = OMAYRA) Association of [...] tests). Lab Interpretation Abnormal (test code = 78084-6) [facility] CenterETHANOL2023-[facility] 00:54:58 ALCOHOL<10mg/dL12/10/2022 7:54 PM [facility]<10 Gpyqchxa69-685 Toxic>100 Depression of [employer]>400 Fatalities ReportedUnAspire [facility]al [facility] HospitalTROPONIN [id number] 00:50:14 Test Item Value Reference Range Interpretation Comments TROPONIN I (test code = 0.006 ng/mL <=0.034 7844801981) OMAYRA (test code = OMAYRA) Reference (Normal) [...] biotin. Lab Interpretation Normal (test code = 72071-4) [facility] [id number] 00:47:12 Test Item Value Reference Range Interpretation Comments NT-proBNP (test code = 291 pg/mL <=125 H 5405319060) OMAYRA (test code = OMAYRA) Biotin has been reported to cause a negative bias, interpret results relative to patient's use of biotin. Lab Interpretation (test Abnormal code = 67604-9) [facility] CenterCOMP[facility]OLIC [facility] (33641)2022-12-11 00:41:12 Test Item Value Reference Range Interpretation Comments NA (test code = 126 mmol/L 135-145 L 4856621283) K (test code = 4.0 mmol/L 3.5-5.0 8770713745) CL (test code = 82 mmol/L 98-108 L 9889844357) CO2 TOTAL (test code = 40 mmol/L 23-31 H 9200896187) AGAP (test code = 4 2-16 5913032222) BUN (test code = 16 mg/dL 7-23 7012015068) GLUCOSE (test code = 97 mg/dL 70-110 4306080023) CREATININE (test code = 0.67 mg/dL 0.60-1.25 5551198929) TOTAL BILI (test code = 0.8 mg/dL 0.1-1.8 7513887091) CALCIUM (test code = 8.5 mg/dL 8.6-10.6 L 5776625060) T PROTEIN (test code = 5.9 g/dL 6.3-8.2 L 1225805946) ALBUMIN (test code = 3.5 g/dL 3.5-5.0 4031457620) ALK PHOS (test code = 49 U/L 34-122 6056340046) ALTv (test code = 18 U/L 5-50 1742-6) AST(SGOT) (test code = 11 U/L 13-40 L 4160015646) eGFR (test code = 119.4 mL/min/1.73m2 0259048932) OMAYRA (test code = OMAYRA) Association of [...] tests). Lab Interpretation Abnormal (test code = 67283-1) [facility] WITH [id number] 00:29:08 Test Item Value Reference Range Interpretation [...] RDW-SD (test code = 46.7 fL 38.5-51.6 80483-7) RDW-CV (test code = 13.6 % 12.1-15.4 788-0) PLT (test code = 263 See_Comment [Automated 777-3) message] The sy stem which generated this result transmitted reference range : 150 - 328 10*3/ ?L. The reference r pasquale was not used to interpret this result as normal/abnormal . MPV (test code = 9.7 fL 9.8-13.0 L 00558-4) NRBC/100 WBC (test 0.0 See_Comment [Automat ed code = 5883530502) message] The system which generated this result transmitted reference range : 0.0 - 10.0 /100 WBCs. The refer ence range was not u sed to interpret th is result as normal/abnormal . NRBC x10^3 (test code See_Comment [Auto mated = 0975389341) message] The s ystem which generated this result transmitted reference range : 10*3/?L. The reference range was not used to interpret this result as normal/abnormal . GRAN MAT (NEUT) % 71.6 % (test code = 770-8) IMM GRAN % (test code 0.90 % = 0273830884) LYMPH % (test code = 17.6 % 736-9) MONO % (test code = 8.7 % 5905-5) EOS % (test code = 1.0 % 713-8) BASO % (test code = 0.2 % 706-2) GRAN MAT x10^3(ANC) 7.27 10*3/uL 1.99-6.95 H (test code = 3875450772) IMM GRAN x10^3 (test 0.09 10*3/uL 0.00-0.06 H code = 8598130751) LYMPH x10^3 (test code 1.79 10*3/uL 1.09-3.23 = 731-0) MONO x10^3 (test code 0.88 10*3/uL 0.36-1.02 = 742-7) EOS x10^3 (test code = 0.10 10*3/uL 0.06-0.53 711-2) BASO x10^3 (test code 0.01-0.09 = 704-7) Lab Interpretation Abnormal (test code = 58517-2) [facility] CenterLact Acid Whole Sahdi2764-60-40 00:14:48 Test Item Value Reference Range Interpretation Comments LACTIC ACID (test code = 1.30 mmol/L 0.50-2.20 7385077457) Lab Interpretation (test code = Normal 23248-9) [facility] METABOLIC PANEL (NA, K, CL, CO2, GLUCOSE, BUN, CREATININE, CA)2022-12-04 11:06:33 Test Item Value Reference Range Interpretation Comments NA (test code = 123 mmol/L 135-145 L 6180745576) K (test code = 3.8 mmol/L 3.5-5.0 6124244060) CL (test code = 86 mmol/L 98-108 L 1870987198) CO2 TOTAL (test code = 36 mmol/L 23-31 H 6682203221) AGAP (test code = 1 2-16 L 6208743857) BUN (test code = 22 mg/dL 7-23 0066556758) GLUCOSE (test code = 195 mg/dL 70-110 H 9298620251) CREATININE (test code = 0.76 mg/dL 0.60-1.25 0694583920) CALCIUM (test code = 8.2 mg/dL 8.6-10.6 L 6935740371) eGFR (test code = 103.3 mL/min/1.73m2 8519691519) OMAYRA (test code = OMAYRA) Association of [...] tests). Lab Interpretation Abnormal (test code = 97432-7) [facility] WITH [id number] 10:54:29 Test Item Value Reference Range Interpretation Comments WBC (test code = 8.54 See_Comment [Automated 90-2) message] The sy stem which generated this [...] RDW-SD (test code = 44.1 fL 38.5-51.6 96218-3) RDW-CV (test code = 13.6 % 12.1-15.4 788-0) PLT (test code = 247 See_Comment [Automated 777-3) message] The sy stem which generated this result transmitted reference range : 150 - 328 10*3/ ?L. The reference r pasquale was not used to interpret this result as normal/abnormal . MPV (test code = 9.5 fL 9.8-13.0 L 52101-1) NRBC/100 WBC (test 0.0 See_Comment [Automat ed code = 6408762481) message] The system which generated this result transmitted reference range : 0.0 - 10.0 /100 WBCs. The refer ence range was not u sed to interpret th is result as normal/abnormal . NRBC x10^3 (test code See_Comment [Auto mated = 1458766544) message] The s ystem which generated this result transmitted reference range : 10*3/?L. The reference range was not used to interpret this result as normal/abnormal . GRAN MAT (NEUT) % 93.0 % (test code = 770-8) IMM GRAN % (test code 0.90 % = 8779824731) LYMPH % (test code = 3.2 % 736-9) MONO % (test code = 2.9 % 5905-5) EOS % (test code = 0.0 % 713-8) BASO % (test code = 0.0 % 706-2) GRAN MAT x10^3(ANC) 7.94 10*3/uL 1.99-6.95 H (test code = 3864006762) IMM GRAN x10^3 (test 0.08 10*3/uL 0.00-0.06 H code = 7848435887) LYMPH x10^3 (test code 0.27 10*3/uL 1.09-3.23 L = 731-0) MONO x10^3 (test code 0.25 10*3/uL 0.36-1.02 L = 742-7) EOS x10^3 (test code = 0.06-0.53 L 711-2) BASO x10^3 (test code 0.01-0.09 = 704-7) Lab Interpretation Abnormal (test code = 38787-0) [facility] Metabolic Panel (NA, K, CL, CO2, GLUCOSE, BUN, CREATININE, CA)2022-12-03 10:44:53 Test Item Value Reference Range Interpretation Comments NA (test code = 126 mmol/L 135-145 L 5094733081) K (test code = 4.0 mmol/L 3.5-5.0 Slight [id number]) hemolysis CL (test code = 89 mmol/L 98-108 L 4863112235) CO2 TOTAL (test code 32 mmol/L 23-31 H = 3313445689) AGAP (test code = 5 2-16 6499951848) BUN (test code = 15 mg/dL 7-23 Slight 5140672325) hemolysis GLUCOSE (test code = 115 mg/dL 70-110 H 8407944550) CREATININE (test code 0.63 mg/dL 0.60-1.25 = 0494019961) CALCIUM (test code = 7.7 mg/dL 8.6-10.6 L 4298733091) eGFR (test code = 128.2 mL/min/1.73m2 2586770746) OMAYRA (test code = OMAYRA) Association of [...] tests). Lab Interpretation Abnormal (test code = 78724-8) [facility] 10:44:53 Test Item Value Reference Range Interpretation Comments MAGNESIUM (test code = [id number]) 1.6 mg/dL 1.7-2.4 L Lab Interpretation (test code = Abnormal 53345-2) [facility] with Yztfvjgybxqp7070-93-71 10:39:13 Test Item Value Reference Range Interpretation Comments WBC (test code = 11.40 See_Comment H [Automated 6340-2) message] The system which generated this result transmit anirudh reference range : 4.20 - 10.70 10*3/?L. The reference range was not used to interpret this result as normal/abnormal . RBC (test code = 4.56 See_Comment [Automated 443-9) message] The system which generated this result [...] RDW-SD (test code = 45.4 fL 38.5-51.6 15042-4) RDW-CV (test code = 13.6 % 12.1-15.4 788-0) PLT (test code = 254 See_Comment [Automated 777-3) message] The system which generated this result transmit anirudh reference range : 150 - 328 10*3/ ?L. The reference range was not u sed to interpret th is result as normal/abnormal . MPV (test code = 10.2 fL 9.8-13.0 36218-9) NRBC/100 WBC (test 0.0 See_Comment [Automat ed code = [id number]) message] The system which generated this result transmit anirudh reference range : 0.0 - 10.0 /100 WBCs. The reference range was not used to interpret this result as normal/abnormal . NRBC x10^3 (test code See_Comment [Auto mated = 8184446091) message] The system which generated this result transmit anirudh reference range : 10*3/?L. The reference range was not used to interpret this result as normal/abnormal . GRAN MAT (NEUT) % 90.0 % (test code = 770-8) IMM GRAN % (test code 0.90 % = 0241652503) LYMPH % (test code = 5.9 % 736-9) MONO % (test code = 2.8 % 5905-5) EOS % (test code = 0.2 % 713-8) BASO % (test code = 0.2 % 706-2) GRAN MAT x10^3(ANC) 10.27 10*3/uL 1.99-6.95 H (test code = 0938318248) IMM GRAN x10^3 (test 0.10 10*3/uL 0.00-0.06 H code = 0370592388) LYMPH x10^3 (test code 0.67 10*3/uL 1.09-3.23 L = 731-0) MONO x10^3 (test code 0.32 10*3/uL 0.36-1.02 L = 742-7) EOS x10^3 (test code = 0.06-0.53 L 711-2) BASO x10^3 (test code 0.01-0.09 = 704-7) Lab Interpretation Abnormal (test code = 78674-6) [facility] METABOLIC PANEL (NA, K, CL, CO2, GLUCOSE, BUN, CREATININE, CA)2022-12-02 06:20:42 Test Item Value Reference Range Interpretation Comments NA (test code = 124 mmol/L 135-145 L 7135809957) K (test code = 4.5 mmol/L 3.5-5.0 4702540115) CL (test code = 78 mmol/L 98-108 L 4052549401) CO2 TOTAL (test code = 37 mmol/L 23-31 H 2184424632) AGAP (test code = 9 2-16 0747860766) BUN (test code = 14 mg/dL 7-23 9719768354) GLUCOSE (test code = 93 mg/dL 70-110 9606825750) CREATININE (test code = 0.71 mg/dL 0.60-1.25 5107996272) CALCIUM (test code = 9.1 mg/dL 8.6-10.6 3795203095) eGFR (test code = 111.7 mL/min/1.73m2 8366062383) OMAYRA (test code = OMAYRA) Association of [...] tests). Lab Interpretation Abnormal (test code = 51333-0) [facility] [id number] 12:22:32 Test Item Value Reference Range Interpretation Comments TROPONIN I (test code = 0.008 ng/mL <=0.034 7546627467) OMAYRA (test code = OMAYRA) Reference (Normal) [...] biotin. Lab Interpretation Normal (test code = 07906-6) [facility] (NA, K, CL, CO2, GLUCOSE, BUN, CREATININE, CA)2022-12-01 12:11:11 Test Item Value Reference Range Interpretation Comments NA (test code = 124 mmol/L 135-145 L 4532622078) K (test code = 4.2 mmol/L 3.5-5.0 0691187544) CL (test code = 79 mmol/L 98-108 L 6363998371) CO2 TOTAL (test code = 37 mmol/L 23-31 H 4730676646) AGAP (test code = 8 2-16 2913818909) BUN (test code = 16 mg/dL 7-23 2525212448) GLUCOSE (test code = 105 mg/dL 70-110 3198331658) CREATININE (test code = 0.67 mg/dL 0.60-1.25 0847202294) CALCIUM (test code = 8.6 mg/dL 8.6-10.6 5008307603) eGFR (test code = 119.4 mL/min/1.73m2 1196319833) OMAYRA (test code = OMAYRA) Association of [...] tests). Lab Interpretation Abnormal (test code = 01115-8) [facility] WITH [id number] 11:59:32 Test Item Value Reference Range Interpretation Comments WBC (test code = 12.17 See_Comment H [Automated 6129-2) message] The system which generated this result [...] RDW-SD (test code = 43.8 fL 38.5-51.6 34569-6) RDW-CV (test code = 13.2 % 12.1-15.4 788-0) PLT (test code = 208 See_Comment [Automated 777-3) message] The system which generated this result transmit anirudh reference range : 150 - 328 10*3/ ?L. The reference range was not u sed to interpret th is result as normal/abnormal . MPV (test code = 9.8 fL 9.8-13.0 07132-9) NRBC/100 WBC (test 0.0 See_Comment [Automat ed code = 6942294573) message] The system which generated this result transmit anirudh reference range : 0.0 - 10.0 /100 WBCs. The reference range was not used to interpret this result as normal/abnormal . NRBC x10^3 (test code See_Comment [Auto mated = 0213274511) message] The system which generated this result transmit anirudh reference range : 10*3/?L. The reference range was not used to interpret this result as normal/abnormal . GRAN MAT (NEUT) % 85.9 % (test code = 770-8) IMM GRAN % (test code 0.50 % = 5917871895) LYMPH % (test code = 6.8 % 736-9) MONO % (test code = 6.3 % 5905-5) EOS % (test code = 0.3 % 713-8) BASO % (test code = 0.2 % 706-2) GRAN MAT x10^3(ANC) 10.44 10*3/uL 1.99-6.95 H (test code = 5147553253) IMM GRAN x10^3 (test 0.06 10*3/uL 0.00-0.06 code = 1585346559) LYMPH x10^3 (test code 0.83 10*3/uL 1.09-3.23 L = 731-0) MONO x10^3 (test code 0.77 10*3/uL 0.36-1.02 = 742-7) EOS x10^3 (test code = 0.04 10*3/uL 0.06-0.53 L 711-2) BASO x10^3 (test code 0.03 10*3/uL 0.01-0.09 = 704-7) Lab Interpretation Abnormal (test code = 82186-1) [facility] METABOLIC PANEL (NA, K, CL, CO2, GLUCOSE, BUN, CREATININE, CA)2022-11-28 17:17:23 Test Item Value Reference Range Interpretation Comments NA (test code = 120 mmol/L 135-145 L 1263296967) K (test code = 4.3 mmol/L 3.5-5.0 1423162011) CL (test code = 77 mmol/L 98-108 L 7547667694) CO2 TOTAL (test code = 40 mmol/L 23-31 H 8642879472) AGAP (test code = 3 2-16 1295949548) BUN (test code = 15 mg/dL 7-23 7064425997) GLUCOSE (test code = 151 mg/dL 70-110 H 5119902760) CREATININE (test code = 0.63 mg/dL 0.60-1.25 5365198101) CALCIUM (test code = 8.2 mg/dL 8.6-10.6 L 2131668316) eGFR (test code = 128.2 mL/min/1.73m2 1219570495) OMAYRA (test code = OMAYRA) Association of [...] tests). Lab Interpretation Abnormal (test code = 08849-5) [facility] 06:54:10 Test Item Value Reference Range Interpretation Comments MAGNESIUM (test code = 2122754074) 1.6 mg/dL 1.7-2.4 L Lab Interpretation (test code = Abnormal 13335-9) [facility] (NA, K, CL, CO2, GLUCOSE, BUN, CREATININE, CA)2022-11-28 01:29:53 Test Item Value Reference Range Interpretation Comments NA (test code = 120 mmol/L 135-145 L 7142097674) K (test code = 3.9 mmol/L 3.5-5.0 1526512984) CL (test code = 77 mmol/L 98-108 L 5923401756) CO2 TOTAL (test code = 36 mmol/L 23-31 H 5370017007) AGAP (test code = 7 2-16 3581187911) BUN (test code = 17 mg/dL 7-23 9271961587) GLUCOSE (test code = 85 mg/dL 70-110 4667548993) CREATININE (test code = 0.76 mg/dL 0.60-1.25 5432163342) CALCIUM (test code = 8.3 mg/dL 8.6-10.6 L 7422742757) eGFR (test code = 103.3 mL/min/1.73m2 3047647778) OMAYRA (test code = OMAYRA) Association of [...] tests). Lab Interpretation Abnormal (test code = 69024-6) [facility] METABOLIC PANEL (NA, K, CL, CO2, GLUCOSE, BUN, CREATININE, CA)2022-11-27 20:36:26 Test Item Value Reference Range Interpretation Comments NA (test code = 122 mmol/L 135-145 L 3768856375) K (test code = 3.9 mmol/L 3.5-5.0 5622156023) CL (test code = 79 mmol/L 98-108 L 4497329562) CO2 TOTAL (test code = 37 mmol/L 23-31 H 1510873227) AGAP (test code = 6 2-16 7728542655) BUN (test code = 17 mg/dL 7-23 9280358548) GLUCOSE (test code = 113 mg/dL 70-110 H 1775872852) CREATININE (test code = 0.78 mg/dL 0.60-1.25 1389214798) CALCIUM (test code = 7.8 mg/dL 8.6-10.6 L 0465003406) eGFR (test code = 100.2 mL/min/1.73m2 1810539292) OMAYRA (test code = OMAYRA) Association of [...] tests). Lab Interpretation Abnormal (test code = 85568-9) [facility] CenterGLYCOSYLATED HEMOGLOBIN (A1C)2022-11-27 18:21:30 Test Item Value Reference Range Interpretation Comments HGB A1C (test code = 5.9 % 4.0-5.7 H 4548-4) OMAYRA (test code = OMAYRA) Reference RangesNormal: <5.7%Prediabetes: 5.7 - 6.4%Diabetes: > 6.5% Lab Interpretation (test Abnormal code = 06754-6) [facility] CenterTROP[facility]IN [id number] 06:12:58 Test Item Value Reference Range Interpretation Comments TROPONIN I (test code = 0.007 ng/mL <=0.034 8603397702) OMAYRA (test code = OMAYRA) Reference (Normal) [...] biotin. Lab Interpretation Normal (test code = 42542-2) [facility] CenterETHANOL2023-[facility] 06:10:43 ALCOHOL<10mg/dL11/27/2022 12:10 AM [facility]<10 Rebaxdrr87-543 Toxic>100 Depression of [employer]>400 Fatalities ReportedUnAsp[facility] HospitalN-TERMINAL [id number] 06:09:37 Test Item Value Reference Range Interpretation Comments NT-proBNP (test code = 311 pg/mL <=125 H 8562682048) OMAYRA (test code = OMAYRA) Biotin has been reported to cause a negative bias, interpret results relative to patient's use of biotin. Lab Interpretation (test Abnormal code = 98906-2) [facility]OL[facility] PAN[facility] ([id number])2022-11-27 06:08:02 Test Item Value Reference Range Interpretation Comments NA (test code = 116 mmol/L 135-145 LL 0904978289) K (test code = 4.1 mmol/L 3.5-5.0 8902191138) CL (test code = 75 mmol/L 98-108 L 6636505369) CO2 TOTAL (test code = 34 mmol/L 23-31 H 6472784407) AGAP (test code = 7 2-16 0497430692) BUN (test code = 16 mg/dL 7-23 7099537605) GLUCOSE (test code = 70 mg/dL 70-110 3905532177) CREATININE (test code = 0.62 mg/dL 0.60-1.25 1204047992) TOTAL BILI (test code = 1.2 mg/dL 0.1-1.1 H 9408419389) CALCIUM (test code = 8.1 mg/dL 8.6-10.6 L 6432140194) T PROTEIN (test code = 6.3 g/dL 6.3-8.2 0355081072) ALBUMIN (test code = 3.8 g/dL 3.5-5.0 5249585653) ALK PHOS (test code = 58 U/L 34-122 6861288437) ALTv (test code = 15 U/L 5-50 1742-6) AST(SGOT) (test code = 13 U/L 13-40 1803274197) eGFR (test code = 130.6 mL/min/1.73m2 5974331456) OMAYRA (test code = OMAYRA) Association of [...] tests). Lab Interpretation Abnormal (test code = 03902-6) [facility] WITH [id number] 05:45:18 Test Item Value Reference Range Interpretation Comments WBC (test code = 9.18 See_Comment [Automated 8131-2) message] The sy stem which generated this result transmitted reference range : 4.20 - 10.70 10*3/?L. The reference range was not used to interpret this result as normal/abnormal . RBC (test code = 4.49 See_Comment [Automated 952-8) message] The sy stem which generated this [...] RDW-SD (test code = 40.1 fL 38.5-51.6 71516-0) RDW-CV (test code = 12.6 % 12.1-15.4 788-0) PLT (test code = 216 See_Comment [Automated 557-3) message] The sy stem which generated this result transmitted reference range : 150 - 328 10*3/ ?L. The reference r pasquale was not used to interpret this result as normal/abnormal . MPV (test code = 9.4 fL 9.8-13.0 L 76409-7) NRBC/100 WBC (test 0.0 See_Comment [Automat ed code = 5281323283) message] The system which generated this result transmitted reference range : 0.0 - 10.0 /100 WBCs. The refer ence range was not u sed to interpret th is result as normal/abnormal . NRBC x10^3 (test code See_Comment [Auto mated = 4761639910) message] The s ystem which generated this result transmitted reference range : 10*3/?L. The reference range was not used to interpret this result as normal/abnormal . GRAN MAT (NEUT) % 79.1 % (test code = 770-8) IMM GRAN % (test code 0.90 % = 9565123720) LYMPH % (test code = 11.8 % 736-9) MONO % (test code = 6.8 % 5905-5) EOS % (test code = 1.2 % 713-8) BASO % (test code = 0.2 % 706-2) GRAN MAT x10^3(ANC) 7.27 10*3/uL 1.99-6.95 H (test code = 9364894595) IMM GRAN x10^3 (test 0.08 10*3/uL 0.00-0.06 H code = 3659834332) LYMPH x10^3 (test code 1.08 10*3/uL 1.09-3.23 L = 731-0) MONO x10^3 (test code 0.62 10*3/uL 0.36-1.02 = 742-7) EOS x10^3 (test code = 0.11 10*3/uL 0.06-0.53 711-2) BASO x10^3 (test code 0.01-0.09 = 704-7) Lab Interpretation Abnormal (test code = 41899-6) [facility] [id number] 09:49:54 Test Item Value Reference Range Interpretation Comments NT-proBNP (test code = 294 pg/mL <=125 H 8060528568) OMAYRA (test code = OMAYRA) Biotin has been reported to cause a negative bias, interpret results relative to patient's use of biotin. Lab Interpretation (test Abnormal code = 01087-1) [facility] ([id number])2022-11-19 09:41:52 Test Item Value Reference Range Interpretation Comments NA (test code = 120 mmol/L 135-145 L 9915132752) K (test code = 4.4 mmol/L 3.5-5.0 7329744227) CL (test code = 80 mmol/L 98-108 L 5172435906) CO2 TOTAL (test code = 34 mmol/L 23-31 H 8531385765) AGAP (test code = 6 2-16 2352957586) BUN (test code = 10 mg/dL 7-23 7946640662) GLUCOSE (test code = 93 mg/dL 70-110 6478915194) CREATININE (test code = 0.77 mg/dL 0.60-1.25 9480923390) TOTAL BILI (test code = 1.1 mg/dL 0.1-1.1 3036564312) CALCIUM (test code = 8.7 mg/dL 8.6-10.6 7365096863) T PROTEIN (test code = 6.9 g/dL 6.3-8.2 4047179000) ALBUMIN (test code = 4.1 g/dL 3.5-5.0 5593389116) ALK PHOS (test code = 60 U/L 34-122 1175775322) ALTv (test code = 14 U/L 5-50 1742-6) AST(SGOT) (test code = 13 U/L 13-40 5819348413) eGFR (test code = 101.7 mL/min/1.73m2 8375477344) OMAYRA (test code = OMAYRA) Association of [...] tests). Lab Interpretation Abnormal (test code = 92995-0) [facility] WITH [id number] 09:02:29 Test Item Value Reference Range Interpretation Comments WBC (test code = 8.30 See_Comment [Automated 7345-2) message] The sy stem which generated this result transmitted reference range : 4.20 - 10.70 10*3/?L. The reference range was not used to interpret this result as normal/abnormal . RBC (test code = 4.67 See_Comment [Automated 443-8) message] The sy stem which generated this [...] RDW-SD (test code = 42.3 fL 38.5-51.6 87190-3) RDW-CV (test code = 12.9 % 12.1-15.4 788-0) PLT (test code = 252 See_Comment [Automated 119-3) message] The sy stem which generated this result transmitted reference range : 150 - 328 10*3/ ?L. The reference r pasquale was not used to interpret this result as normal/abnormal . MPV (test code = 9.6 fL 9.8-13.0 L 44509-4) NRBC/100 WBC (test 0.0 See_Comment [Automat ed code = 2568140190) message] The system which generated this result transmitted reference range : 0.0 - 10.0 /100 WBCs. The refer ence range was not u sed to interpret th is result as normal/abnormal . NRBC x10^3 (test code See_Comment [Auto mated = 0391075232) message] The s ystem which generated this result transmitted reference range : 10*3/?L. The reference range was not used to interpret this result as normal/abnormal . GRAN MAT (NEUT) % 70.7 % (test code = 770-8) IMM GRAN % (test code 1.00 % = 7397025711) LYMPH % (test code = 16.0 % 736-9) MONO % (test code = 10.5 % 5905-5) EOS % (test code = 1.3 % 713-8) BASO % (test code = 0.5 % 706-2) GRAN MAT x10^3(ANC) 5.87 10*3/uL 1.99-6.95 (test code = 6155226951) IMM GRAN x10^3 (test 0.08 10*3/uL 0.00-0.06 H code = 8887594128) LYMPH x10^3 (test code 1.33 10*3/uL 1.09-3.23 = 731-0) MONO x10^3 (test code 0.87 10*3/uL 0.36-1.02 = 742-7) EOS x10^3 (test code = 0.11 10*3/uL 0.06-0.53 711-2) BASO x10^3 (test code 0.04 10*3/uL 0.01-0.09 = 704-7) Lab Interpretation Abnormal (test code = 85524-2) [facility] METABOLIC PANEL (NA, K, CL, CO2, GLUCOSE, BUN, CREATININE, CA)2022-11-10 23:42:55 Test Item Value Reference Range Interpretation Comments NA (test code = 121 mmol/L 135-145 L 1046605782) K (test code = 4.7 mmol/L 3.5-5.0 3925546049) CL (test code = 82 mmol/L 98-108 L 9574420312) CO2 TOTAL (test code = 34 mmol/L 23-31 H 2637177497) AGAP (test code = 5 2-16 6050016518) BUN (test code = 15 mg/dL 7-23 3971800688) GLUCOSE (test code = 120 mg/dL 70-110 H 0545173262) CREATININE (test code = 0.75 mg/dL 0.60-1.25 6846284267) CALCIUM (test code = 7.7 mg/dL 8.6-10.6 L 5975837898) eGFR (test code = 104.8 mL/min/1.73m2 7421912836) OMAYRA (test code = OMAYRA) Association of [...] tests). Lab Interpretation Abnormal (test code = 77585-2) [facility] METABOLIC PANEL (NA, K, CL, CO2, GLUCOSE, BUN, CREATININE, CA)2022-11-10 17:59:59 Test Item Value Reference Range Interpretation Comments NA (test code = 121 mmol/L 135-145 L 9780098151) K (test code = 4.3 mmol/L 3.5-5.0 1179021699) CL (test code = 81 mmol/L 98-108 L 0586168988) CO2 TOTAL (test code = 38 mmol/L 23-31 H 1860320909) AGAP (test code = 2 2-16 1976622706) BUN (test code = 15 mg/dL 7-23 2085477592) GLUCOSE (test code = 113 mg/dL 70-110 H 8454209926) CREATININE (test code = 0.74 mg/dL 0.60-1.25 3382877163) CALCIUM (test code = 7.5 mg/dL 8.6-10.6 L 9474773341) eGFR (test code = 106.5 mL/min/1.73m2 3100524700) OMAYRA (test code = OMAYRA) Association of [...] tests). Lab Interpretation Abnormal (test code = 34216-9) [facility] [id number] 13:08:23 Test Item Value Reference Range Interpretation Comments NT-proBNP (test code = 177 pg/mL <=125 H 9105324802) OMAYRA (test code = OMAYRA) Biotin has been reported to cause a negative bias, interpret results relative to patient's use of biotin. Lab Interpretation (test Abnormal code = 25964-4) [facility] [id number] 08:23:33 Test Item Value Reference Range Interpretation Comments TROPONIN I (test code = 0.004 ng/mL <=0.034 2506937421) OMAYRA (test code = OMAYRA) Reference (Normal) [...] biotin. Lab Interpretation Normal (test code = 17962-8) [facility] ([id number])2022-11-09 08:12:09 Test Item Value Reference Range Interpretation Comments NA (test code = 123 mmol/L 135-145 L 4518424753) K (test code = 4.2 mmol/L 3.5-5.0 2227540297) CL (test code = 78 mmol/L 98-108 L 5271301438) CO2 TOTAL (test code = 34 mmol/L 23-31 H 3470457479) AGAP (test code = 11 2-16 9354824578) BUN (test code = 8 mg/dL 7-23 2284864284) GLUCOSE (test code = 113 mg/dL 70-110 H 3317632656) CREATININE (test code = 0.87 mg/dL 0.60-1.25 1801185689) TOTAL BILI (test code = 1.2 mg/dL 0.1-1.1 H 3981836834) CALCIUM (test code = 8.8 mg/dL 8.6-10.6 8758221552) T PROTEIN (test code = 7.6 g/dL 6.3-8.2 5254287328) ALBUMIN (test code = 4.5 g/dL 3.5-5.0 1732552394) ALK PHOS (test code = 72 U/L 34-122 8596746720) ALTv (test code = 13 U/L 5-50 1742-6) AST(SGOT) (test code = 13 U/L 13-40 6705873238) eGFR (test code = 88.3 mL/min/1.73m2 1474092951) OMAYRA (test code = OMAYRA) Association of [...] tests). Lab Interpretation Abnormal (test code = 52558-1) [facility] CenterLIPASE, [id number] 08:11:14 Test Item Value Reference Range Interpretation Comments LIPASE (test code = 8918717901) 108 U/L 0-220 Lab Interpretation (test code = Normal 41465-4) [facility] CenterCBC WITH [id number] 07:59:28 Test Item Value Reference Range Interpretation Comments WBC (test code = 8.95 See_Comment [Automated message] 4752-2) The system [employer] generated this result transmitted ref erence range: 4.20 - 1 0.70 10*3/?L. The re ference range was not u sed to interpret this result as normal/abnor mal. RBC (test code = 5.07 See_Comment [Automated message] 879-8) The system [employer] generated this result transmitted ref erence range: [...] RDW-SD (test code 41.1 fL 38.5-51.6 = 40040-2) RDW-CV (test code 12.5 % 12.1-15.4 = 788-0) PLT (test code = 235 See_Comment [Automated message] 177-3) The system [employer] generated this result transmitted ref erence range: 150 - 32 8 10*3/?L. The re ference range was not u sed to interpret this result as normal/abnor mal. MPV (test code = 9.8 fL 9.8-13.0 87632-7) NRBC/100 WBC (test 0.0 See_Comment [Automat ed message] code = 6021724663) The syste m which generated this result transmitted ref erence range: 0.0 - 10 .0 /100 WBCs. The refer ence range was not u sed to interpret this result as normal/abnor mal. NRBC x10^3 (test See_Comment [Automated message] code = 4112695586) The syste m which generated this result transmitted ref erence range: 10*3/?L. The reference range was not used to interpr et this result as normal/abnormal . GRAN MAT (NEUT) % 56.9 % (test code = 770-8) IMM GRAN % (test 0.40 % code = 1710651452) LYMPH % (test code 29.4 % = 736-9) MONO % (test code 9.5 % = 5905-5) EOS % (test code = 3.0 % 713-8) BASO % (test code 0.8 % = 706-2) GRAN MAT 5.09 10*3/uL 1.99-6.95 x10^3(ANC) (test code = 1889050230) IMM GRAN x10^3 0.04 10*3/uL 0.00-0.06 (test code = 4404296344) LYMPH x10^3 (test 2.63 10*3/uL 1.09-3.23 code = 731-0) MONO x10^3 (test 0.85 10*3/uL 0.36-1.02 code = 742-7) EOS x10^3 (test 0.27 10*3/uL 0.06-0.53 code = 711-2) BASO x10^3 (test 0.07 10*3/uL 0.01-0.09 code = 704-7) [facility] CenterPO[facility], [id number] 19:05:00 Test Item Value Reference Range Interpretation [...] U APPEAR (test code = clear 3267) [facility] URINALYSIS, [id number] 19:05:00 Test Item Value Reference Range Interpretation [...] U [facility] (test code = clear 3267) [facility] [id number] 19:05:00 Test Item Value Reference Range Interpretation [...] U APPEAR (test code = clear 3267) [facility] Center[facility] W [id number] 17:53:531. ?No hydronephrosis or nephrolithiasis. 2. ?Mild [...] hernia with mild circumferential distalesophageal thickening (2:16). [place] density within the distal stomach andat the [...] hernia with mild circumferential distalesophageal thickening (2:16). [place] density within the distal stomach andat the [...] small right hydrocele.5. Additional findings as above. [facility] CenterUrinalysis2021-03-[facility] 17:37:38 Test Item Value Reference Range Interpretation Comments APPEARANCE (test code = Cloudy Clear A 2318469767) COLOR (test code = Red Yellow A 7233895813) PH (test code = 4.8-8.0 7764232522) SP GRAVITY (test code = 1.003-1.030 8683087936) GLU U QUAL (test code = 50 mg/dL Normal A 7813056043) BLOOD (test code = 3+ Negative A 6099738953) KETONES (test code = Negative Negative 7898935964) PROTEIN (test code = 100 mg/dL Negative A 2887-8) UROBILIN (test code = Normal Normal 8320886289) BILIRUBIN (test code = Negative Negative 9065763404) NITRITE (test code = Negative Negative 0933985825) LEUK DIANELYS (test code = Negative Negative 7335553379) RBC/HPF (test code = >182 See_Comment H [Autom ated message] 6081871969) The system [employer] generated this result transmit anirudh reference range : 0 - 3 HPF. The refe rence range was not u sed to interpret th is result as normal/abnormal . WBC/HPF (test code = >182 See_Comment H [Autom ated message] 7740951975) The system [employer] generated this result transmit anirudh reference range : 0 - 5 HPF. The refe rence range was not u sed to interpret th is result as normal/abnormal . BACTERIA (test code = Moderate Negative A 0885903387) WBC CLUMPS (test code = See_Comment H [Au tomated message] 4610222463) The system whic h generated this result transmit anirudh reference range : <=1 HPF. The refere nce range was not u sed to interpret th is result as normal/abnormal . Lab Interpretation (test Abnormal code = 11608-1) [facility] Metabolic Panel (NA, K, CL, CO2, GLUCOSE, BUN, CREATININE, CA)2020-12-12 17:13:57 Test Item Value Reference Range Interpretation Comments NA (test code = 140 mmol/L 135-145 2760055370) K (test code = 4.5 mmol/L 3.5-5.0 2985024605) CL (test code = 100 mmol/L 98-108 0367085549) CO2 TOTAL (test code = 35 mmol/L 23-31 H 6412046409) AGAP (test code = 2-16 6410897285) BUN (test code = 25 mg/dL 7-23 H 9839672360) GLUCOSE (test code = 114 mg/dL 70-110 H 8203969843) CREATININE (test code = 1.18 mg/dL 0.60-1.25 9049477016) CALCIUM (test code = 9.0 mg/dL 8.6-10.6 5204283873) eGFR Calculation mL/min/1.73m2 (Non-) (test code = 0623557209) eGFR Calculation mL/min/1.73m2 () (test code = 4416310205) OMAYRA (test code = OMAYRA) Association of [...] tests). Lab Interpretation Abnormal (test code = 50366-0) [facility] with Qqypankazvue2666-63-13 16:56:10 Test Item Value Reference Range Interpretation Comments WBC (test code = See_Comment [Automated 5390-2) message] The sy stem which generated this result transmitted reference range : 4.20 - 10.70 10*3/?L. The reference range was not used to interpret this result as normal/abnormal . RBC (test code = See_Comment [Automated 609-8) message] The sy stem which generated this [...] RDW-SD (test code = 42.9 fL 38.5-51.6 04754-9) RDW-CV (test code = 11.9 % 12.1-15.4 L 788-0) PLT (test code = See_Comment [Automated 777-3) message] The sy stem which generated this result transmitted reference range : 150 - 328 10*3/ ?L. The reference r pasquale was not used to interpret this result as normal/abnormal . MPV (test code = 10.8 fL 9.8-13.0 31752-6) NRBC/100 WBC (test See_Comment [Automat ed code = [id number]) message] The system which generated this result transmitted reference range : 0.0 - 10.0 /100 WBCs. The refer ence range was not u sed to interpret th is result as normal/abnormal . NRBC x10^3 (test code <0.01 See_Comment [Auto mated = [id number]) message] The s ystem which generated this result transmitted reference range : 10*3/?L. The reference range was not used to interpret this result as normal/abnormal . GRAN MAT (NEUT) % 63.5 % (test code = 770-8) IMM GRAN % (test code 0.40 % = 9672208729) LYMPH % (test code = 23.9 % 736-9) MONO % (test code = 6.7 % 5905-5) EOS % (test code = 4.3 % 713-8) BASO % (test code = 1.2 % 706-2) GRAN MAT x10^3(ANC) 4.27 10*3/uL 1.99-6.95 (test code = 9307150912) IMM GRAN x10^3 (test 0.03 10*3/uL 0.00-0.06 code = 3669460108) LYMPH x10^3 (test code 1.61 10*3/uL 1.09-3.23 = 731-0) MONO x10^3 (test code 0.45 10*3/uL 0.36-1.02 = 742-7) EOS x10^3 (test code = 0.29 10*3/uL 0.06-0.53 711-2) BASO x10^3 (test code 0.08 10*3/uL 0.01-0.09 = 704-7) Lab Interpretation Abnormal (test code = 48077-9) [facility] [id number] 18:56:00 Test Item Value Reference Range Interpretation [...] 3267) Lab Interpretation (test code Abnormal = 01970-5) [facility] [id number] 18:56:00 Test Item Value Reference Range Interpretation [...] 3267) Lab Interpretation (test code Abnormal = 15785-3) [facility]- XR CHEST [id number] 16:22:00 Patient Name: JUAN C MONGE Unit No: [id number] EXAMS: CPT CODE: [id number] XR CHEST 1V 41585 EXAMINATION: - XR CHEST 1V. LOCATION: B2. HISTORY: S/P ICD. COMPARISON: None. TECHNIQUE: Single AP view of the chest was obtained. FINDINGS: The right lung apex is excluded from the knitk-qi-yktq. The heart isnormal in size. Left AICD device is present. The lungs are clear. No acute osseous abnormality is id entified. IMPRESSION: The right lung apex is excluded from the xmcup-zs-ypwn. No acute cardiopulmonary abnormality is identified. at 1622 Reported and signed by: Latanya Marshall MD CC: yTrell Mckeon Technologist: JOSELYN Mathews, RT(R)Transcrpt Date/Tm/Trnsp: 06/19/2020 (1622) t.[email or web address].[email or web address] Orig Print D/T: S: 06/19/2020 (1625) [facility] [address] [place] PHYS: [place] [address] : 8AGE: 59 SEX: M LOC: Z.354 A PHONE #: [phone] EXAM DATE: 06/19/2020 STATUS: ADM IN FAX #: [phone] RADIOLOGY NO: PAGE 1 Signed ReportBASIC METABOLIC [id number] 13:17:00 Test Item Value Reference Range Interpretation [...] code = MG/DL 8.7-9.7 CA) Comments to [employer] Helper: NURSE WILL BRING SPECIMEN TO LABIs this a LINE draw? N [id number] 13:17:00 Test Item Value Reference Range Interpretation Comments MAGNESIUM (test code = MAG) MG/DL 1.6-2.3 Comments to [employer] Helper: NURSE WILL BRING SPECIMEN TO LABIs this a LINE draw? N BASIC METABOLIC [id number] 13:17:00 Test Item Value Reference Range Interpretation [...] 9.1 MG/DL 8.4-10.2 N CA) Comments to [employer] Helper: NURSE WILL BRING SPECIMEN TO LABIs this a LINE draw? N [id number] 13:17:00 Test Item Value Reference Range Interpretation Comments MAGNESIUM (test code = MAG) 2.2 MG/DL 1.6-2.3 N Comments to [employer] Helper: NURSE WILL BRING SPECIMEN TO LABIs this a LINE draw? N BASIC METABOLIC [id number] 13:16:00 Test Item Value Reference Range Interpretation [...] code = MG/DL 8.7-9.7 CA) Comments to [employer] Helper: NURSE WILL BRING SPECIMEN TO LABIs this a LINE draw? N [id number] 13:16:00 Test Item Value Reference Range Interpretation Comments MAGNESIUM (test code = MAG) MG/DL 1.6-2.3 Comments to [employer] Helper: NURSE WILL BRING SPECIMEN TO LABIs this a LINE draw? N BASIC METABOLIC [id number] 13:14:00 Test Item Value Reference Range Interpretation [...] code = CA) MG/DL 8.7-9.7 Comments to [employer] Helper: NURSE WILL BRING SPECIMEN TO LABIs this a LINE draw? N [id number] 13:14:00 Test Item Value Reference Range Interpretation Comments MAGNESIUM (test code = MAG) MG/DL 1.6-2.3 Comments to [employer] Helper: NURSE WILL BRING SPECIMEN TO LABIs this a LINE draw? N BASIC METABOLIC [id number] 13:13:00 Test Item Value Reference Range Interpretation [...] code = CA) MG/DL 8.7-9.7 Comments to [employer] Helper: NURSE WILL BRING SPECIMEN TO LABIs this a LINE draw? N [id number] 13:13:00 Test Item Value Reference Range Interpretation Comments MAGNESIUM (test code = MAG) MG/DL 1.6-2.3 Comments to [employer] Helper: NURSE WILL BRING SPECIMEN TO LABIs this a LINE draw? N PROTHROMBIN [id number] 13:08:00 Test Item Value Reference Range Interpretation [...] myocar dial infarction. 2.0 - 3.0 3. Mri Tech al prosthesis hear t valves, recurre nt systemic emboli sm. 3.0 - 4.5 Comments to [employer] Helper: NURSE WILL BRING SPECIMEN TO LABPTT ACTIVATED 2020-06-19 13:08:00 Test Item Value Reference Range Interpretation Comments PTT ACTIVATED (test code = APTT) 30.8 SECONDS 25.1-36.5 N Comments to [employer] Helper: NURSE WILL BRING SPECIMEN TO LABCBC W/AUTO [...] 0.00 K/mm3 0.0-0.1 N NRBC#) Comments to [employer] Helper: NURSE WILL BRING SPECIMEN TO LABIs this a LINE draw? N COVID 19 Asymptomatic IH [id number] 12:14:00 Test Item Value Reference Range Interpretation [...] Date/Time Note Provider Source 2023-03-20 00:11:00-00:00 [facility] ([facility]) Hospitalist Discharge Summary REPORT#:[id number] REPORT STATUS: Signed DATE:03/20/23 TIME: 0011 PATIENT: JUAN C MONGE UNIT #: [id number] [facility] AGE: 62 SEX: M ATTEND: Rudy Xiao ADM AUTHOR: Rudy Xiao MD * ALL edits or amendments must be made on the [employer]/computer document * General Information Discharge date: 03/19/23 [...] cigarette smoking or nicotine patches. PLAN - Chip Frier on cessation - Cont. nicotine patch PATIENT [...] cigarette smoking or nicotine patches. PLAN - Chip Frier on cessation - Cont. nicotine patch Code [...] DAILY. Comments: #60 [facility] Start taking the following new medications: levoFLOXacin [...] normal inspection, painless ran ge of motion Neuro/CASINO FLOOR RUNNER: alert, normal speech Skin: dry Psychiatry: abnl [...] or < 18.5 BMI status/follow-up: nml BMI,no budget counselor needed Electronically Signed by Rudy Xiao MD on 3 at 0016 RPT #:[id number] END OF REPORT 2023-03-19 12:19:00-00:00 [facility] ([facility]) Cardiology Progress Note REPORT#:[id number] REPORT STATUS: Signed DATE:03/19/23 TIME: 1219 PATIENT: JUAN C MONGE UNIT #: [id number] ROOM/BED: [address] : 56 AGE: 62 SEX: M ATTEND: Rudy Xiao ADM AUTHOR: Tyrell Mckeon MD * ALL edits or amendments must be made on the [employer]/computer document * Subjective Chief complaint: Dyspnea Patient [...] no edema Musculoskeletal: full range of motion Neuro/CASINO FLOOR RUNNER: alert, oriented X 3, CN II-XII intact [...] with Dr. Tenorio as outpatient. at 1002 [facility] #:[id number] END OF REPORT 2023-03-18 15:47:00-00:00 [id number] [address] PATIENT NAME: JUAN C MONGE ADMIT DATE: 03/15/23 ACCOUNT NO: [id number] ROOM NO: [facility] AGE: 62 REPORT TYPE: ECHOCARDIOGRAM SEX: M ADMITTING PHYSICIAN:Rudy Xiao MD ATTENDING PHYSICIAN:Rudy Xiao MD *[facility]* [address] [place] [address] Transthoracic Echocardiogram Patient: Juan C Monge Study Date: 03/18/2023 BP: 122 / 66 Location: [facility]LO DARLING URN: [id number] 222 : 1960 Age: 62 Height: 70 in / 177.8 cm Gender: M Weight: 149 .7 lb / 68 kg BMI/BSA: 21.5 kg/m 2 / 1.83 m 2 *Ordering Physician: * Omid Tenorio MD *Interpreting Physician: * Omid Tenorio MD *Ic Engineer: Vick Galdamez Indications: CAD. Study data: Transthoracic echocardiogram. Proced ure: Transthoracic echocardiography was performed. Images were obta ined using a [employer] cardiac ultrasound machine. Image quality was adequate. [...] 2.46 m/sec --------- Pulmonic valve Value Ref [place] v, ED 0.94 m/sec --------- Aortic root [...] NAME: JUAN C MONGE 222 2023-03-18 10:16:00-00:00 [facility] ([facility] Hospitalist Progress Note REPORT#:[id number] REPORT STATUS: Signed DATE:03/18/23 TIME: 1016 PATIENT: JUAN C MONGE UNIT #: [id number] [facility] AGE: 62 SEX: M ATTEND: Rudy Xiao ADM AUTHOR: Jenny Meyers MD R2 * ALL edits or amendments must be made on the [employer]/computer document * Jenny Meyers 03/18/23 1016: Subjective Chief complaint: SOB, hypotension HPI: 62 yo M with PMH of COPD on 2L NC, Hypertension, Anxiety, Systolic CHF s/p AICD, Afib on xarelto, CVA and dementia presented as a transfer from [facility] for evaluation of shortness of breath. Pt [...] normal inspection, painless ran ge of motion Neuro/CASINO FLOOR RUNNER: alert, normal speech Skin: dry Psychiatry: abnl [...] cigarette smoking or nicotine patches. PLAN - Chip Frier on cessation - Cont. nicotine patch Code [...] or < 18.5 BMI status/follow-up: nml BMI,no budget counselor needed Attestations Attestation needed: teaching physician Rudy Xiao 03/18/23 1743: Attestations Teaching Physician Attestation F/U visit w/ resident: I saw the patient with the resident and . . . agree with the resident's findings and plan. echo unremarkable await aicd interrogation dvt ppx: on xarelto at 1023 Electronically Signed by Rudy Xiao MD on 3 at 1743 RPT #:[id number] END OF REPORT 2023-03-18 06:54:00-00:00 [facility] ([facility]) Cardiology Progress Note REPORT#:[id number] REPORT STATUS: Signed DATE:03/18/23 TIME: 653 PATIENT: JUAN C MONGE UNIT #: [id number] ROOM/BED: [address] : 58 AGE: 62 SEX: M ATTEND: Rudy Xiao ADM AUTHOR: Tyrell Mckeon MD * ALL edits or amendments must be made on the [employer]/computer document * Subjective Chief complaint: Dyspnea Patient [...] no edema Musculoskeletal: full range of motion Neuro/CASINO FLOOR RUNNER: alert, oriented X 3, CN II-XII intact [...] Oxygen support as needed. at 1220 RPT #:[id number] END OF REPORT 2023-03-17 13:48:00-00:00 [facility] ([facility] Hospitalist Progress Note REPORT#:[id number] REPORT STATUS: Signed DATE:03/17/23 TIME: 1347 PATIENT: JUAN C MONGE UNIT #: [id number] ROOM/BED: [address] : 58 AGE: 62 SEX: M ATTEND: Rudy Xiao ADM AUTHOR: Jenny Meyers MD R2 * ALL edits or amendments must be made on the [employer]/computer document * Jenny Meyers 03/17/23 1348: Subjective Chief complaint: SOB, hypotension HPI: 62 yo M with PMH of COPD on 2L NC, Hypertension, Anxiety, Systolic CHF s/p AICD, Afib on xarelto, CVA and dementia presented as a transfer from [facility] for evaluation of shortness of breath. Pt [...] normal inspection, painless ran ge of motion Neuro/CASINO FLOOR RUNNER: alert, oriented X 3, normal speech Skin: [...] cigarette smoking or nicotine patches. PLAN - Chip Frier on cessation - Cont. nicotine patch Code [...] or < 18.5 BMI status/follow-up: nml BMI,no budget counselor needed Attestations Attestation needed: teaching physician Rudy Xiao 03/17/23 1405: Attestations Teaching Physician Attestation F/U visit w/ resident: I saw the patient with the resident and . . . agree with the resident's findings and plan. await echo and aicd interrogation cont angelina has home o2 at 1511 Electronically Signed by Rudy Xiao MD on 3 at 0024 RPT #:[id number] END OF REPORT 2023-03-17 06:38:00-00:00 [facility] ([facility]) Cardiology Progress Note REPORT#:[id number] REPORT STATUS: Signed DATE:03/17/23 TIME: 637 PATIENT: JUAN C MONGE UNIT #: [id number] [facility] AGE: 62 SEX: M ATTEND: Rudy Xiao ADM AUTHOR: Tyrell Mckeon MD * ALL edits or amendments must be made on the [employer]/computer document * Subjective Chief complaint: Dyspnea Patient [...] no edema Musculoskeletal: full range of motion Neuro/CASINO FLOOR RUNNER: alert, oriented X 3, CN II-XII intact [...] (Auto) (14 - 44 %) 3.3 L [place] % (Auto) (4 - 13 %) 3.9 L Eos % (Auto) (0 - 6 %) 0.0 Baso % (Auto) (0 - 2 %) 0.1 Neut # (Auto) (2.0 - 7.6 K/mm3) 9.37 H Lymph # (Auto) (1.0 - 3.8 K/mm3) 0.33 L [place] # (Auto) (0.1 - 0.8 K/mm3) 0.40 [...] Oxygen support as needed. at 1220 RPT #:[id number] END OF REPORT 2023-03-16 20:57:00-00:00 [facility] Cardiology Progress Note REPORT#:[id number] REPORT STATUS: Signed DATE:03/16/23 TIME: 2056 PATIENT: JUAN C MONGE UNIT #: [id number] ROOM/BED: [address] : 58 AGE: 62 SEX: M ATTEND: Rudy Xiao ADM AUTHOR: Tyrell Mckeon MD * ALL edits or amendments must be made on the [employer]/computer document * Subjective Chief complaint: Dyspnea Patient [...] no edema Musculoskeletal: full range of motion Neuro/CASINO FLOOR RUNNER: alert, oriented X 3, CN II-XII intact [...] (Auto) (14 - 44 %) 3.3 L [place] % (Auto) (4 - 13 %) 3.9 L Eos % (Auto) (0 - 6 %) 0.0 Baso % (Auto) (0 - 2 %) 0.1 Neut # (Auto) (2.0 - 7.6 K/mm3) 9.37 H Lymph # (Auto) (1.0 - 3.8 K/mm3) 0.33 L [place] # (Auto) (0.1 - 0.8 K/mm3) 0.40 [...] Oxygen support as needed. at 0637 RPT #:[id number] END OF REPORT 2023-03-16 08:07:00-00:00 [facility] ([facility]) Hospitalist Progress Note REPORT#:[id number] REPORT STATUS: Signed DATE:03/16/23 TIME: 0807 PATIENT: JUAN C MONGE UNIT #: [id number] ROOM/BED: 347-A : 58 AGE: 62 SEX: M ATTEND: Rudy Xiao ADM AUTHOR: Jenny Meyers MD R2 * ALL edits or amendments must be made on the [employer]/computer document * Jenny Meyers 03/16/23 0807: Subjective Chief complaint: SOB, hypotension HPI: 62 yo M with PMH of COPD on 2L NC, Hypertension, Anxiety, Systolic CHF s/p AICD, Afib on xarelto, CVA and dementia presented as a transfer from [facility] for evaluation of shortness of breath. Pt [...] normal inspection, painless ran ge of motion Neuro/CASINO FLOOR RUNNER: alert, oriented X 3, normal speech Skin: [...] cigarette smoking or nicotine patches. PLAN - Chip Frier on cessation - Cont. nicotine patch Code [...] or < 18.5 BMI status/follow-up: nml BMI,no budget counselor needed Attestations Attestation needed: teaching physician Rudy Xiao 03/16/232006: Attestations Teaching Physician Attestation F/U visit w/ resident: I saw the patient with the resident and . . . agree with the resident's findings and plan. echo cards folloing aicd interrogation cont angelina has home o2 at 1416 Electronically Signed by Rudy Xiao MD on 3 at 2007 RPT #:[id number] END OF REPORT 2023-03-15 20:17:00-00:00 [id number] [place] [address] PATIENT NAME: JUAN C MONGE ADMIT DATE: 03/15/23 ACCOUNT NO: [id number] ROOM NO: Z.347 AGE: 62 REPORT TYPE: ELECTROCARDIOGRAM SEX: M ADMITTING PHYSICIAN:Rudy Xiao MD ATTENDING PHYSICIAN:Rudy Xiao MD Order: [id number] Test Reason : CAD Test Date/Time Stamp: [...] NAME: JUAN C MONGE 22 2023-03-15 16:03:00-00:00 [id number] [place] [id number] PATIENT NAME: JUAN C MONGE ADMIT DATE: 03/15/23 ACCOUNT NO: [id number] ROOM NO: Z.347 AGE: 62 REPORT TYPE: [...] who presented to the Emergency Room at [facility] in [facility] with complaints of increasing shortness of [...] Date Transcribed: 03/15/2023 16:59:18 GSP/REQ Receipt ID: [id number] Authenticated by Tyrell Mckeon MD On 03/15/20 06:28:21 PM at 0628 PATIENT NAME: JUAN C MONGE 2023-03-15 10:52:00-00:00 [facility] ([facility]) [facility] Hospitalist History Physical REPORT#:[id number] REPORT STATUS: Signed DATE:03/15/23 TIME: 1051 PATIENT: JUAN C MONGE UNIT #: [id number] [facility] AGE: 62 SEX: M ATTEND: Rudy Xiao ADM AUTHOR: Clare Velazquez * ALL edits or amendments must be made on the [employer]/computer document * Clare Velazquez 03/15/23 1052: History of Present Illness HPI Chief complaint: SOB, hypotension HPI: 62 yo M with PMH of COPD on 2L NC, Hypertension, Anxiety, Systolic CHF s/p AICD, Afib on xarelto, CVA and dementia presented as a transfer from [facility] for evaluation of shortness of breath. Pt [...] no muscle sp asm, no paraspinal tenderness Neuro/CASINO FLOOR RUNNER: alert, oriented X 3, normal speech, n [...] (Auto) (1.0 - 3.8 K/mm3) 0.51 L [place] # (Auto) (0.1 - 0.8 K/mm3) 0.10 [...] is alert and oriented x3 #Tobacco abuse budget counselor on cessation. start nicotine patch VTE [...] Current BMI: 21.6 BMI status/follow-up: nml BMI,no budget counselor needed Rudy Xiao 03/15/23 2233: Attestations Teaching [...] Clare Velazquez on 02/18 04/10 at 2343 [facility] #:[id number] END OF REPORT 2023-03-15 07:02:00-00:00 [facility] ([facility]) EMERGENCY PROVIDER REPORT REPORT#:[id number] REPORT STATUS: Signed DATE:03/15/23 TIME: 07 PATIENT: JUAN C MONGE UNIT #: [id number] ROOM/BED: [address] AGE: 62 SEX: M PCP PHYS: Undefined Provider SERVICE AUTHOR: Royce Davison MD LOCATION: [facility] * ALL edits or amendments must be made on the [employer]/computer document * See Addendum HPI-General Illness Free Text HPI Notes Free Text HPI Notes 62-year-old female past medical history COPD, hypertension, hyperlipidemia, [facility] Compla ining of shortness of breath over [...] (Auto) (1.0 - 3.8 K/mm3) 0.51 L [place] # (Auto) (0.1 - 0.8 K/mm3) 0.10 [...] Royce Davison MD on at 1918 RPT #:[id number] END OF REPORT 2020-06-20 06:17:00-00:00 [facility] ([facility]) Cardiology Progress Note REPORT#:[id number] REPORT STATUS: Signed DATE:06/20/20 TIME: 06 PATIENT: JUAN C MONGE UNIT #: [id number] ROOM/BED: 354-A : 58 AGE: 59 SEX: M ATTEND: Geoffrey Mckeon MD ADM AUTHOR: Tyrell Mckeon MD * ALL edits or amendments must be made on the [employer]/computer document * Subjective Chief Complaint: AICD Patient [...] Potassium Chloride 10 MEQ BID PO Ipratropium [place] 0.5 MG RTQ6H INH Cefazolin Sodium 1,000 [...] no edema Musculoskeletal: full range of motion Neuro/CASINO FLOOR RUNNER: alert, oriented X 3, CN II-XII intact [...] % (Auto) (14 - 44 %) 27.8 [place] % (Auto) (4 - 13 %) 8.6 Eos % (Auto) (0 - 6 %) 1.7 Baso % (Auto) (0 - 2 %) 0.6 Neut # (Auto) (2.0 - 7.6 K/mm3) 3.99 Lymph # (Auto) (1.0 - 3.8 K/mm3) 1.82 [place] # (Auto) (0.1 - 0.8 K/mm3) 0.56 [...] Report Impression - Status: SIGNED Entered: 06/19/2020 6320 IMPRESSION: The right lung apex is excluded from the field-o f-view. No acute cardiopulmonary abnormality is identified. Impression By: [email or web address] - Latanya Marshall MD Diagnosis, Assessment Plan Free Text DxA P Notes Free Text DxA P Notes: IMP: Chronic systolic heart failure s/p [employer] AICD - single lead PLAN: AICD interrogation d/c home if stable. at 0818 [facility] #:[id number] END OF REPORT 2020-06-19 16:03:00-00:00 [id number] [facility] [address] [place] [address] PATIENT NAME: JUAN C MONGE ADMIT DATE: 06/19/20 ACCOUNT NO: [id number] ROOM NO: [facility] AGE: 59 REPORT TYPE: OPERATIVE REPORT SEX: [...] ve heart failure. SURGEON: Tyrell Mckeon MD SEWING MACHINE TESTER: None. ANESTHESIA: Local anesthesia with 1% lidocaine [...] was flushed with antibiotic- containing solution. A 7-Lithuanian sheath was advanced over the wire and [...] DATA: 1. Pulse generator: [employer] model [id number], s erial #[id number]. 2. Right ventricular lead; [employer] model 7120Q/ 58, serial number [id number]. STIMULATION THRESHOLD DATA: Right ventricle R waves [...] Tyrell Mckeon MD WT: OP:KINGS/LUIS ANGEL/ALEX Conf#: [id number]#: [id number] cc: Omid Tenorio MD Authenticated by Tyrell Mckeon MD On 06/23/20 06:02:06 AM at 0602 PATIENT NAME: JUAN C MONGE 21 2020-06-19 13:14:00-00:00 [id number] [place] [address] PATIENT NAME: JUAN C MONGE ADMIT DATE: 06/19/20 ACCOUNT NO: [id number] ROOM NO: Z.354 AGE: 59 REPORT TYPE: ELECTROCARDIOGRAM SEX: M ADMITTING PHYSICIAN:Tyrell Mckeon MD ATTENDING PHYSICIAN:Tyrell Mckeon MD Order: [id number] Test Reason : CHF Test Date/Time Stamp: [...]
[2023-04-12 15:00] LABS: Protime INR 1.11
[2023-04-12 15:02] LABS: Absolute Lymphocytes (CBC) 2.1 K/uL (0.7-4.9); Hematocrit 41.6 % (39.6-49.0); Lymphocytes % 23.9 % (15.3-44.8); MPV 8.3 fL (7.6-11.3); RBC Red Blood Cell Count 4.24 M/uL (4.33-5.43)
--- NOTE | 2023-04-12 15:12 | RAD REPORT ---
EXAM DESCRIPTION: Em Single View04/12/2023 2:55 pm CLINICAL HISTORY: Shortness breath COMPARISON: April 03, 2004 FINDINGS: Lungs are moderately hyperaerated consistent COPD. The lungs appear clear of acute infiltrate. The heart is normal size. Pacemaker leads place IMPRESSION: No acute abnormalities displayed
[2023-04-12 15:17] LABS: Albumin 3.2 g/dL (3.4-5.0); Bilirubin Direct 0.2 mg/dL (0-0.2); Bilirubin Indirect, Calculated 0.4 mg/dL (0.2-0.8); Bilirubin Total 0.6 mg/dL (0.2-1.0); Magnesium 2.1 mg/dL (1.6-2.4); Potassium 3.8 mEq/L (3.5-5.1); Protein, Total 6.7 g/dL (6.4-8.2); Troponin High Sensitivity 5.6 pg/mL (<58.9)
--- NOTE | 2023-04-12 15:18 | ER ---
Nurse's Notes [facility] Name: Juan C Monge Age: 62 yrs Sex: Male : 1960 Arrival Date: 04/12/2023 Time: 14:36 Bed 19 Private MD: Diagnosis: COPD/ Chronic obstructive pulmonary disease with (acute) exacerbation;Hypoxemia Presentation: 04/12 14:37 Coronavirus screen: Client denies travel out of the [place] in the last 14 days. Ebola ss Screen: Patient denies exposure to infectious person. Patient denies travel to an Ebola-affected area in the 21 days before illness onset. Initial Sepsis Screen: Does the patient meet any 2 criteria? No. Patient's initial sepsis screen is negative. Does the patient have a suspected source of infection? No. Patient's initial sepsis screen is negative. Risk Assessment: Do you want to hurt yourself or someone else? Patient reports no desire to harm self or others. 14:37 Acuity: JESSI 2 ss 14:37 Method Of Arrival: Ambulatory ss 15:00 Chief complaint: Patient states: Pt presenting for COPD exacerbation. Pt placed on cm10 Non-rebreather mask upon arrival. 19:16 Onset of symptoms was April 12, 2023. cm10 Triage Assessment: 14:39 General: Appears distressed, uncomfortable, Behavior is cooperative. Pain: Denies pain. cm10 Cardiovascular: No deficits noted. Heart tones Rhythm is regular. Respiratory: Reports shortness of breath at rest on exertion cough that is non-productive, Airway is patent Respiratory effort is labored, shallow, Respiratory pattern is tachypnea. Historical: - Allergies: 15:29 No Known Allergies; cm10 - PMHx: 14:38 Atrial Fib; Hyperlipidemia; skull fracture; Myocardial infarction; Hypertension; CVA; ss COPD; - PSHx: 14:38 Appendectomy; defibrillator; ss - Immunization history:: Adult Immunizations unknown. - Social history:: Smoking status: Patient reports the use of cigarette tobacco products, smokes one pack cigarettes per day. Screenin:00 [facility] ED Fall Risk Assessment (Adult) History of falling in the last 3 months, cm10 including since admission No falls in past 3 months (0 pts) Confusion or Disorientation No (0 pts) Intoxicated or Sedated No (0 pts) Impaired Gait No (0 pts) Mobility Assist Device Used No (0 pt) Altered Elimination No (0 pt) Score/Fall Risk Level 0 - 2 = Low Risk Oriented to surroundings, Maintained a safe environment, Hourly rounding (assess needs \T\ fall precautionary measures) done. Abuse screen: Denies threats or abuse. Denies injuries from another. Nutritional screening: No deficits noted. Tuberculosis screening: No symptoms or risk factors identified. Assessment: 15:32 Respiratory: Breath sounds are diminished bilaterally. cm10 15:32 Reassessment: Pt placed on BiPap at this time. cm10 17:00 Reassessment: Pt taken off of BiPap at this time. cm10 19:13 Reassessment: Unable to give report at this time. cm10 Vital Signs: 15:08 BP 119 / 85; Pulse 114; Resp 22; Pulse Ox 100% 10 lpm ; cm10 16:00 BP 111 / 75; Pulse 104; Resp 18; Pulse Ox 97% ; cm10 17:00 BP 121 / 73; Pulse 102; Resp 18; Pulse Ox 95% on 3 lpm NC; cm10 18:00 BP 107 / 86; Pulse 108; Resp 18; Pulse Ox 89% ; cm10 19:00 BP 117 / 67; Pulse 97; Resp 18; Pulse Ox 95% on 3 lpm NC; cm10 ED Course: 14:35 Inserted saline lock: 20 gauge 22 gauge in right in left forearm, using aseptic ds4 technique. Blood collected. 14:37 Patient arrived in ED. ss 14:37 Sam Lindsey MD is Attending Physician. [facility] 14:38 Triage completed. ss 14:38 Leslie Esqueda, SERA is Primary Nurse. cm10 14:38 Arm band placed on right wrist. ss 14:57 XRAY Chest (1 view) In Process Unspecified. EDMS 15:00 First set of blood cultures drawn by me, Second set of blood cultures drawn by me. ds4 15:16 Dedrick Parish MD is Hospitalizing Provider. [facility] 16:00 Patient has correct armband on for positive identification. Bed in low position. Call cm10 light in reach. Side rails up X2. Provided Education on: N/A. 19:18 No provider procedures requiring assistance completed. Patient admitted, IV remains in cm10 place. Administered Medications: 15:02 Drug: NS 0.9% IV 500 ml Route: IV; Rate: bolus; Site: left forearm; cm10 15:52 Follow up: IV Status: Completed infusion; IV Intake: 500ml cm10 15:02 Drug: MethylPrednisoLONE IVP 125 mg Route: IVP; Site: left forearm; cm10 15:28 Follow up: Response: No adverse reaction cm10 15:02 Drug: Levalbuterol Inhalation 3.75 mg Route: Inhalation; cm10 15:28 Follow up: Response: No adverse reaction cm10 15:02 Drug: Ipratropium Inhalation Aerosol 0.5 mg Route: Inhalation; cm10 15:28 Follow up: Response: No adverse reaction cm10 15:08 Drug: levofloxacin IVPB 500 mg Volume: 100 ml; Route: IVPB; Infused Over: 60 mins; cm10 Site: left forearm; 16:07 Follow up: IV Status: Completed infusion; IV Intake: 100ml cm10 16:07 Follow up: Response: No adverse reaction cm10 16:07 Drug: NS 0.9% IV 1000 ml Route: IV; Rate: 125 ml/hr; Site: right forearm; cm10 19:26 Follow up: Response: No adverse reaction; IV Status: Infusion continued upon admission cm10 16:08 Drug: Famotidine IVP 20 mg Route: IVP; Site: right forearm; cm10 16:36 Follow up: Response: No adverse reaction cm10 16:08 Drug: Decadron - Dexamethasone IVP 10 mg Route: IVP; Site: right forearm; cm10 16:35 Follow up: Response: No adverse reaction cm10 Medication: 19:16 VIS not applicable for this client. cm10 Intake: 15:52 IV: 500ml; Total: 500ml. cm10 16:07 IV: 100ml; Total: 600ml. cm10 Outcome: 15:17 Decision to Hospitalize by Provider. belén 19:25 Admitted to Med/surg accompanied by tech, via wheelchair, room 216, Report called to Faraz Hyman 19:25 Condition: good 19:48 Patient left the ED. 10 Signatures: Dispatcher [employer] EDSam Estrada MD MD cha Blanchard, Shelby, RN RN Master Hameed ds4 Leslie Esqueda RN RN cm10
--- NOTE | 2023-04-12 15:18 | EDPHYS ---
Physician Documentation [facility] Name: Juan C Monge Age: 62 yrs Sex: Male : 1960 Arrival Date: 04/12/2023 Time: 14:36 Bed 19 Private MD: ED Physician Sam Lindsey HPI: 04/12 15:10 This 62 yrs old Male presents to ER via Ambulatory with complaints of COPD belén Exacerbation. 15:10 The patient has shortness of breath at rest, with light activity. Onset: The belén symptoms/episode began/occurred 2 day(s) ago. Duration: The symptoms are continuous, and are steadily getting worse. The patient's shortness of breath has no apparent modifying factors. The patient or guardian reports difficulty breathing. Onset: The symptoms/episode began/occurred this morning, today. Modifying factors: The symptoms are alleviated by nothing. the symptoms are aggravated by activity, lying flat, talking. Associated signs and symptoms: Pertinent positives: non-productive cough, dizziness. Severity of symptoms: At their worst the symptoms were moderate in the emergency department the symptoms are unchanged. Associated signs and symptoms: Pertinent positives:. The patient has experienced similar episodes in the past, multiple times. Historical: - Allergies: 15:29 No Known Allergies; cm10 - PMHx: 14:38 Atrial Fib; Hyperlipidemia; skull fracture; Myocardial infarction; Hypertension; CVA; ss COPD; - PSHx: 14:38 Appendectomy; defibrillator; ss - Immunization history:: Adult Immunizations unknown. - Social history:: Smoking status: Patient reports the use of cigarette tobacco products, smokes one pack cigarettes per day. ROS: 15:12 Constitutional: Negative for fever, chills, and weight loss, Eyes: Negative for injury, belén pain, redness, and discharge, ENT: Negative for injury, pain, and discharge, Neck: Negative for injury, pain, and swelling, Cardiovascular: Negative for chest pain, palpitations, and edema, Abdomen/GI: Negative for abdominal pain, nausea, vomiting, diarrhea, and constipation, Back: Negative for injury and pain, : Negative for injury, bleeding, discharge, and swelling, MS/Extremity: Negative for injury and deformity, Skin: Negative for injury, rash, and discoloration, Neuro: Negative for headache, weakness, numbness, tingling, and seizure, Psych: Negative for depression, anxiety, suicide ideation, homicidal ideation, and hallucinations, Allergy/Immunology: Negative for hives, rash, and allergies, Endocrine: Negative for neck swelling, polydipsia, polyuria, polyphagia, and marked weight changes, Hematologic/Lymphatic: Negative for swollen nodes, abnormal bleeding, and unusual bruising. 15:12 Respiratory: Positive for cough, shortness of breath, at rest. Exam: 15:12 Constitutional: This is a well developed, well nourished patient who is awake, alert, belén and in no acute distress. Head/Face: Normocephalic, atraumatic. Eyes: Pupils equal round and reactive to light, extra-ocular motions intact. Lids and lashes normal. Conjunctiva and sclera are non-icteric and not injected. Cornea within normal limits. Periorbital areas with no swelling, redness, or edema. ENT: Nares patent. No nasal discharge, no septal abnormalities noted. Tympanic membranes are normal and external auditory canals are clear. Oropharynx with no redness, swelling, or masses, exudates, or evidence of obstruction, uvula midline. Mucous membranes moist. Neck: Trachea midline, no thyromegaly or masses palpated, and no cervical lymphadenopathy. Supple, full range of motion without nuchal rigidity, or vertebral point tenderness. No Meningismus. Chest/axilla: Normal chest wall appearance and motion. Nontender with no deformity. No lesions are appreciated. Abdomen/GI: Soft, non-tender, with normal bowel sounds. No distension or tympany. No guarding or rebound. No evidence of tenderness throughout. Back: No spinal tenderness. No costovertebral tenderness. Full range of motion. Male : Normal genitalia with no discharge or lesions. Skin: Warm, dry with normal turgor. Normal color with no rashes, no lesions, and no evidence of cellulitis. MS/ Extremity: Pulses equal, no cyanosis. Neurovascular intact. Full, normal range of motion. Neuro: Awake and alert, GCS 15, oriented to person, place, time, and situation. Cranial nerves II-XII grossly intact. Motor strength 5/5 in all extremities. Sensory grossly intact. Cerebellar exam normal. Normal gait. Psych: Awake, alert, with orientation to person, place and time. Behavior, mood, and affect are within normal limits. 15:12 Cardiovascular: Rate: tachycardic, Rhythm: regular, Pulses: Pulses are 4+ in bilateral radial, brachial, femoral, popliteal, posterior tibial and and dorsalis pedis arteries.. Heart sounds: normal, Edema: is not appreciated, JVD: is not appreciated. 15:12 ECG was reviewed by the Attending Physician. 15:28 ECG was reviewed by the Attending Physician. [facility] Vital Signs: 15:08 BP 119 / 85; Pulse 114; Resp 22; Pulse Ox 100% 10 lpm ; cm10 16:00 BP 111 / 75; Pulse 104; Resp 18; Pulse Ox 97% ; cm10 17:00 BP 121 / 73; Pulse 102; Resp 18; Pulse Ox 95% on 3 lpm NC; cm10 18:00 BP 107 / 86; Pulse 108; Resp 18; Pulse Ox 89% ; cm10 19:00 BP 117 / 67; Pulse 97; Resp 18; Pulse Ox 95% on 3 lpm NC; cm10 MDM: 14:42 Patient medically screened. [facility] 15:17 Differential diagnosis: Anemia Bronchitis Chronic Obstructive Pulmonary Disease belén obstructed airway, tracheal injury, bronchitis, flu, URI, pneumonia. Antibiotic administration: Levaquin given. Differential Diagnosis: Obstructed Airway Bronchitis Influenza Upper Respiratory Infection Sinusitis Pharyngitis Asthma Exacerbation Viral Syndrome Pneumonia. Immunization status: Influenza vaccine: within last 5 years. Data reviewed: vital signs, nurses notes, lab test result(s), EKG, radiologic studies, plain films. Consideration of Admission/Observation Patient was admitted/placed on observation. Escalation of care including admission/observation considered. I considered the following discharge prescriptions or medication management in the emergency department Medications were administered in the Emergency Department. See MAR. Independent interpretation of the following test(s) in the Emergency Department EKG: See my EKG interpretation above. Test considered but Not performed: CT: no ct chest. Historians other than the Patient: pt. Care significantly affected by the following chronic conditions: Hypertension, Chronic Obstructive Pulmonary Disease, cva, cad, mi. Counseling: I had a detailed discussion with the patient and/or guardian regarding: the historical points, exam findings, and any diagnostic results supporting the discharge/admit diagnosis, lab results, radiology results, the need for further work-up and treatment in the hospital. 04/12 14:39 Order name: Basic Metabolic Panel; Complete Time: 15:[address] [facility] 04/12 14:39 Order name: CBC with Diff; Complete Time: 15:[address] [facility] 04/12 14:39 Order name: LFT's; Complete Time: 15:[address] [facility] 04/12 14:39 Order name: Magnesium; Complete Time: 15:[address] [facility] 04/12 14:39 Order name: NT PRO-BNP; Complete Time: 15:[address] [facility] 04/12 14:39 Order name: PT-INR; Complete Time: 15:[address] [facility] 04/12 14:39 Order name: Troponin HS; Complete Time: 15:[address] [facility] 04/12 14:39 Order name: Blood Culture Adult (2) 04/12 14:39 Order name: Lactate w/ 2H reflex if indic.; Complete Time: 15:[address] [facility] 04/12 14:39 Order name: ABG; Complete Time: 15:[address] [facility] 04/12 14:39 Order name: COVID-19 SARS RT PCR; Complete Time: 19:[address] [facility] 04/12 14:39 Order name: Flu; Complete Time: 19:[address] [facility] 04/12 15:04 Order name: CBC Smear Scan; Complete Time: 15:59 [facility] 04/12 17:28 Order name: Magnesium; Complete Time: 19:13 [facility] 04/12 17:28 Order name: Phosphorus; Complete Time: 19:13 [facility] 04/12 17:28 Order name: Urinalysis w/ reflexes [facility] 04/12 17:28 Order name: Basic Metabolic Panel [facility] 04/12 17:28 Order name: Basic Metabolic Panel [facility] 04/12 17:28 Order name: CBC with Automated Diff [facility] 04/12 17:28 Order name: CBC with Automated Diff [facility] 04/12 14:39 Order name: XRAY Chest (1 view); Complete Time: 15:[address] [facility] 04/12 14:39 Order name: BIPAP [facility] 04/12 14:39 Order name: EKG; Complete Time: 14:[address] [facility] 04/12 17:28 Order name: Heart Healthy [facility] 04/12 14:39 Order name: Cardiac monitoring; Complete Time: 14:[address] [facility] 04/12 14:39 Order name: EKG - Nurse/Tech; Complete Time: 15:[address] [facility] 04/12 14:39 Order name: IV Saline Lock; Complete Time: 14:[address] [facility] 04/12 14:39 Order name: Labs collected and sent; Complete Time: 14:[address] [facility] 04/12 14:39 Order name: O2 Per Protocol; Complete Time: 14: belén 04/12 14:39 Order name: O2 Sat Monitoring; Complete Time: : belén EC: Rate is 103 beats/min. Rhythm is regular. QRS [place] is Normal. VT interval is normal. belén QRS interval is normal. QT interval is normal. No Q waves. T waves are Normal. No ST changes noted. Clinical impression: Sinus tachycardia and No evidence of ischemia. Interpreted by me. Reviewed by me. Administered Medications: 15:02 Drug: NS 0.9% IV 500 ml Route: IV; Rate: bolus; Site: left forearm; cm10 15:52 Follow up: IV Status: Completed infusion; IV Intake: 500ml cm10 15:02 Drug: MethylPrednisoLONE IVP 125 mg Route: IVP; Site: left forearm; cm10 15:28 Follow up: Response: No adverse reaction cm10 15:02 Drug: Levalbuterol Inhalation 3.75 mg Route: Inhalation; cm10 15:28 Follow up: Response: No adverse reaction cm10 15:02 Drug: Ipratropium Inhalation Aerosol 0.5 mg Route: Inhalation; cm10 15:28 Follow up: Response: No adverse reaction cm10 15:08 Drug: levofloxacin IVPB 500 mg Volume: 100 ml; Route: IVPB; Infused Over: 60 mins; cm10 Site: left forearm; 16:07 Follow up: IV Status: Completed infusion; IV Intake: 100ml cm10 16:07 Follow up: Response: No adverse reaction cm10 16:07 Drug: NS 0.9% IV 1000 ml Route: IV; Rate: 125 ml/hr; Site: right forearm; cm10 19:26 Follow up: Response: No adverse reaction; IV Status: Infusion continued upon admission cm10 16:08 Drug: Famotidine IVP 20 mg Route: IVP; Site: right forearm; cm10 16:36 Follow up: Response: No adverse reaction cm10 16:08 Drug: Decadron - Dexamethasone IVP 10 mg Route: IVP; Site: right forearm; cm10 16:35 Follow up: Response: No adverse reaction cm10 Disposition Summary: 04/12/23 15:17 Hospitalization Ordered Hospitalization Status: Inpatient Admission belén Provider: Dedrick Parish cha Location: Telemetry/MedSurg (Inpatient) belén Condition: Fair belén Problem: new belén Symptoms: have improved belén Bed/Room Type: Standard belén Room Assignment: 216(04/12/23 18:39) bd Diagnosis - COPD/ Chronic obstructive pulmonary disease with (acute) exacerbation belén - Hypoxemia belén Forms: - Medication Reconciliation Form belén - SBAR form belén Signatures: Dispatcher [employer] EDReanna Clark Corey, MD MD cha Blanchard, Shelby, RN RN ss Leslie Esqueda RN RN cm10 Corrections: (The following items were deleted from the chart) 18:39 15:17 belén bd
[2023-04-12 15:29] LABS: Blood Morphology Comment NOT SEEN (NOT SEEN); Platelet Estimate ADEQ; White Blood Cell Scan OK (OK)
[2023-04-12 15:35] LABS: Blood Gas Oxyhemoglobin 73.4 % (94-97); Blood O2 Saturation 78.4 % (92-98.5)
[2023-04-12] MEDS ORDERED: dexAMETHasone 10 MG/ML VIAL ONE (15:47)
[2023-04-12] MEDS ORDERED: NA CHLORIDE 0.9% 1,000 ML ONE (15:47)
[2023-04-12] MEDS ORDERED: FAMOTIDINE 20 MG/2 ML VIAL IV ONE (15:48)
[2023-04-12] MEDS ORDERED: ACETAMINOPHEN 325 MG TABLET PO PRN (17:22)
[2023-04-12] MEDS ORDERED: ONDANSETRON 4 MG/2 ML VIAL IV PRN (17:26)
--- NOTE | 2023-04-12 17:28 | P.HP ---
Certification for Inpatient Patient admitted to: Observation With expected LOS: <2 Midnights Patient will require the following post-hospital care: None Practitioner: I am a practitioner with admitting privileges, knowledge of patient current condition, hospital course, and medical plan of care. Services: Services provided to patient in accordance with Admission requirements found in Title 42 Section 412.3 of the Code of Federal Regulations Patient History Date of Service: 04/12/23 Reason for admission: Shortness of breath History of Present Illness: Patient is a 62-year-old male with past medical history significant for nicotine dependence, hyperlipidemia, GERD, paroxysmal A-fib [place], CVA, hypertension who presents with shortness of breath. Patient reported he has been having shortness of breath for quite some time now but symptom became worse today. Patient reported associated signs and symptoms of cough. Patient denies any other signs or symptoms. Symptoms are aggravated or relieved by nothing. Patient decided to present to the hospital due to worsening symptoms. Allergies No Known Allergies Allergy (Unverified 04/03/23 05:07) Home Medications: Aspirin [Aspirin EC 81 MG] 81 mg PO DAILY #30 tablet. 03/14/18 Benazepril HCl [Lotensin*] 10 mg PO DAILY #30 tab 03/14/18 Albuterol Neb [Proventil 0.083% Neb Soln] 1 inh Q4H PRN 03/20/23 Atorvastatin Calcium [Lipitor] 40 mg PO BEDTIME 03/20/23 Carvedilol [Coreg] 1 tab PO BID 03/20/23 Ipratropium [place] 500 mcg Q6H 03/20/23 Memantine HCl [Namenda] 1 tab PO DAILY 03/20/23 Omeprazole [Prilosec] 1 tab PO DAILY 03/20/23 Potassium Chloride [Micro-K] 1 tab PO DAILY 03/20/23 Rivaroxaban [Xarelto*] 1 tab PO DAILY 03/20/23 Fluticasone/Umeclidin/Vilanter [Trelegy Ellipta 200-62.5-25] 1 each IH DAILY 30 Days #30 aero 03/21/23 Furosemide [Lasix*] 40 mg PO DAILY #30 tab 03/24/23 predniSONE [Prednisone*] 20 mg PO BID 5 Days #10 tab 04/02/23 - Past Medical/Surgical History Diabetic: No -: COPD -: paroxysmal A.Fib -: HTN -: Tobacco abuse -: CVA -: skull fx -: defibrilator -: Home O2 -: Appendectomy - Family History Father -: Diabetes Mother -: Diabetes - Social History Smoking Status: Current every day smoker Counseled patient to stop smoking for: less than 10 minutes Smoking therapy provided: Yes Patient receptive to therapy: No Alcohol use: No CD- Drugs: No Caffeine use: No Place of Residence: Home Review of Systems General: Unremarkable Eyes: Unremarkable ENT: Unremarkable Respiratory: Cough, Shortness of Breath Cardiovascular: Unremarkable Gastrointestinal: Unremarkable Genitourinary: Unremarkable Musculoskeletal: Unremarkable Integumentary: Unremarkable Neurological: Unremarkable Lymphatics: Unremarkable Physical Examination - Vital Signs Pulse: 106 Pulse Ox (%): 100 - Physical Exam General: Alert, In no apparent distress, Oriented x3, Cooperative, Mild distress HEENT: Atraumatic, PERRLA, Mucous membr. moist/pink, EOMI, Sclerae nonicteric Neck: Supple, 2+ carotid pulse no bruit, No LAD, Without JVD or thyroid abnormality Respiratory: Diminished Cardiovascular: Normal S1 S2, Irregular heart rate/rhythm Capillary refill: <2 Seconds Gastrointestinal: Normal bowel sounds, No tenderness Musculoskeletal: No clubbing, No swelling, No tenderness Integumentary: No rashes Neurological: Normal speech, Normal strength at 5/5 x4 extr, Normal tone, Normal affect Lymphatics: No axilla or inguinal lymphadenopathy - Studies Laboratory Data (last 24 hrs) 04/12/23 14:35: PT 12.2, INR 1.11 04/12/23 14:35: WBC 8.80, Hgb 13.6, Hct 41.6, Plt Count 254 04/12/23 14:35: Sodium 133 L, Potassium 3.8, BUN 19 H, Creatinine 1.06, Glucose 106, Magnesium 2.1, Total Bilirubin 0.6, AST 6 L, ALT 18, Alkaline Phosphatase 76 Microbiology Data (last 24 hrs): 04/12/23 15:24 Nasopharnyx Influenza Type A Antigen Screen - Final 04/12/23 15:24 Nasopharnyx Influenza Type B Antigen Screen - Final Assessment and Plan - Plan --Acute on chronic COPD exacerbation hypercapnia and hypoxia. Patient noncompliant with BiPAP therapy. Continue steroids, neb treatment with albuterol\Atrovent and O2 therapy. --History of [place]\CVA. Continue aspirin and Xarelto. --Paroxysmal A-fib. Continue Xarelto. --GERD. Continue home medication. --Nicotine dependence. Patient counseled on tobacco cessation. Patient placed on nicotine patch. --Hyperlipidemia. Continue statin. --Hypertension. Stable. Continue home medications. --DVT prophylaxis with Xarelto. Discharge Plan: Home Plan to discharge in: 48 Hours - Advance Directives Does patient have a Living Will: No Does patient have a Durable POA for Healthcare: No - Code Status/Comfort Care Code Status Assessed: Yes Physician Review: Patient Assessed, Agree with Above Assessment and Plan Critical Care: No
[2023-04-12 18:04] LABS: Magnesium 2.1 mg/dL (1.6-2.4); Phosphorus 3.6 mg/dL (2.5-4.9)
[2023-04-12] MEDS: ALBUTEROL 2.5 MG/3 ML NEB SOL NEB SCH (20:00)
[2023-04-12] MEDS: IPRATROPIUM BROM 0.5MG/2.5ML NEB SCH (20:00)
[2023-04-12] MEDS: NICOTINE 21 MG/PAT TD SCH (21:00)
[2023-04-12] MEDS: ATORVASTATIN 40 MG TAB PO SCH (21:49)
[2023-04-12 22:06] VITALS: BMI 17.4
[2023-04-13 00:35] LABS: Specific Gravity 1.024 (1.005-1.030); Urine Bacteria None Seen /HPF (<20); Urine Bilirubin NEGATIVE (Negative); Urine Blood Negative (Negative); Urine Clarity Clear (Clear); Urine Color Yellow (Yellow); Urine Glucose 2+ (Negative); Urine Mucus Slight /HPF (None Seen); Urine Protein NEGATIVE (Negative); Urine RBC None Seen /HPF (None Seen); Urine Urobilinogen Normal (Normal)
[2023-04-13] MEDS: METHYLPREDNISOLONE 40 MG INJ IV SCH ×3 (00:48→17:34)
[2023-04-13] MEDS: TRAMADOL HCL 50 MG TAB PO PRN ×2 (00:55→11:05)
[2023-04-13] MEDS: ALBUTEROL 2.5 MG/3 ML NEB SOL NEB SCH ×4 (02:00→20:40)
[2023-04-13] MEDS: IPRATROPIUM BROM 0.5MG/2.5ML NEB SCH ×4 (02:00→20:40)
[2023-04-13 04:38] LABS: Absolute Lymphocytes (CBC) 0.2 K/uL (0.7-4.9); Hematocrit 34.5 % (39.6-49.0); Lymphocytes % 5.7 % (15.3-44.8); MCV 97.2 fL (80-100); MPV 8.9 fL (7.6-11.3); Potassium 3.8 mEq/L (3.5-5.1); RBC Red Blood Cell Count 3.55 M/uL (4.33-5.43)
[2023-04-13] MEDS ORDERED: MORPHINE 2 MG/ML SYR IV ONE (05:58)
[2023-04-13] MEDS: ASPIRIN 81 MG CHEWABLE TABLET PO SCH (08:19)
[2023-04-13] MEDS: RIVAROXABAN 15 MG TABLET PO SCH (08:19)
[2023-04-13] MEDS: NICOTINE 21 MG/PAT TD SCH (08:20)
[2023-04-13 08:36] LABS: Blood Morphology Comment NOT SEEN (NOT SEEN); Platelet Estimate ADEQ
[2023-04-13] MEDS ORDERED: POTASSIUM CL SA 10 MEQ TAB PO ONE (09:00)
--- NOTE | 2023-04-13 19:18 | EKG ---
Test Date: 2023-04-12 Test Time: 15:21:50 Hospitality Intern: MAKSIM MEASUREMENT RESULTS: Intervals: Rate: 103 MT: 140 QRSD: 76 QT: 348 QTc: 455 [place]: P: 78 MT: 140 QRS: 75 T: 67 INTERPRETIVE STATEMENTS: Sinus tachycardia with premature atrial complexes Otherwise normal ECG Compared to ECG 04/03/2023 04:37:13 Atrial premature complex(es) now present Sinus rhythm no longer present Electronically Signed On 04-13-23 19:16:33 CDT by Ric Pandya
[2023-04-13] MEDS ORDERED: MORPHINE 4 MG/ML SYR IV ONE (20:06)
[2023-04-13] MEDS: ATORVASTATIN 40 MG TAB PO SCH (20:08)
[2023-04-13] MEDS: ENSURE ENLIVE 237 ML CAN PO SCH (20:13)
[2023-04-13] MEDS ORDERED: PHENOL 1.4% ORAL SPRAY 180ML MM PRN (22:00)
[2023-04-14] MEDS: METHYLPREDNISOLONE 40 MG INJ IV SCH ×3 (00:48→18:05)
[2023-04-14] MEDS: IPRATROPIUM BROM 0.5MG/2.5ML NEB SCH ×4 (02:00→19:35)
[2023-04-14] MEDS: ALBUTEROL 2.5 MG/3 ML NEB SOL NEB SCH ×4 (02:00→19:35)
[2023-04-14 02:52] LABS: Potassium 4.3 mEq/L (3.5-5.1)
[2023-04-14] MEDS: HYDROCODONE/APAP 5/325 MG TAB PO PRN ×3 (05:20→22:02)
[2023-04-14] MEDS: ASPIRIN 81 MG CHEWABLE TABLET PO SCH (08:58)
[2023-04-14] MEDS: NICOTINE 21 MG/PAT TD SCH (08:58)
[2023-04-14] MEDS: RIVAROXABAN 15 MG TABLET PO SCH (08:58)
[2023-04-14] MEDS: ENSURE ENLIVE 237 ML CAN PO SCH ×2 (08:59→21:19)
[2023-04-14] MEDS ORDERED: VANCOMYCIN 1.25 GM in NA CHLORIDE 0.9% 250 ML IVPB ONE (11:00)
[2023-04-14] MEDS: ATORVASTATIN 40 MG TAB PO SCH (21:19)
[2023-04-15] MEDS: METHYLPREDNISOLONE 40 MG INJ IV SCH ×3 (00:59→16:31)
[2023-04-15] MEDS: IPRATROPIUM BROM 0.5MG/2.5ML NEB SCH ×4 (02:00→19:10)
[2023-04-15] MEDS: ALBUTEROL 2.5 MG/3 ML NEB SOL NEB SCH ×4 (02:00→19:10)
[2023-04-15] MEDS: VANCOMYCIN 1 GM in NA CHLORIDE 0.9% 250 ML IVPB SCH ×2 (05:24→23:46)
[2023-04-15] MEDS: HYDROCODONE/APAP 5/325 MG TAB PO PRN ×2 (06:39→22:24)
[2023-04-15] MEDS: NICOTINE 21 MG/PAT TD SCH (09:00)
[2023-04-15] MEDS: ASPIRIN 81 MG CHEWABLE TABLET PO SCH (09:45)
[2023-04-15] MEDS: RIVAROXABAN 15 MG TABLET PO SCH (09:45)
[2023-04-15] MEDS: ENSURE ENLIVE 237 ML CAN PO SCH ×2 (09:46→20:45)
[2023-04-15] MEDS: carvediloL 3.125 MG TAB PO SCH (20:45)
[2023-04-15] MEDS: ATORVASTATIN 40 MG TAB PO SCH (20:45)
[2023-04-15] MEDS ORDERED: DONEPEZIL HCL 5 MG TAB PO SCH (21:00)
[2023-04-15] MEDS ORDERED: ATORVASTATIN 80 MG TAB PO SCH (21:00)
[2023-04-16] MEDS: METHYLPREDNISOLONE 40 MG INJ IV SCH ×2 (00:51→08:54)
[2023-04-16] MEDS: IPRATROPIUM BROM 0.5MG/2.5ML NEB SCH ×2 (01:15→08:00)
[2023-04-16] MEDS: ALBUTEROL 2.5 MG/3 ML NEB SOL NEB SCH ×2 (01:15→08:00)
[2023-04-16] MEDS: RIVAROXABAN 15 MG TABLET PO SCH (08:46)
[2023-04-16] MEDS: carvediloL 3.125 MG TAB PO SCH (08:47)
[2023-04-16] MEDS: NICOTINE 21 MG/PAT TD SCH (08:50)
[2023-04-16] MEDS: ENSURE ENLIVE 237 ML CAN PO SCH (08:54)
[2023-04-16] MEDS ORDERED: FUROSEMIDE 40 MG TABLET PO SCH (09:00)
[2023-04-16] MEDS ORDERED: PANTOPRAZOLE 40MG TABLET PO SCH (09:00)
[2023-04-16] MEDS ORDERED: ASPIRIN EC 81 MG TAB PO SCH (09:00)
[2023-04-16] MEDS ORDERED: MEMANTINE HCL 10 MG TABLET PO SCH (09:00)
[2023-04-16] MEDS ORDERED: HOME MED 1 EA UNK (Omeprazole [Prilosec] 40 MG Capsule.Dr) PO SCH (09:00)
[2023-04-16] MEDS ORDERED: HOME MED 1 EA UNK (Budesonide/Glycopyr/Formoterol [Breztri Aerosphere Inhaler] 10.7 GM Hfa IH SCH (09:00)
[2023-04-16] MEDS ORDERED: BENAZEPRIL 10 MG TAB PO SCH (09:00)
[2023-04-16] MEDS ORDERED: hydroCHLOROthiazide 25 MG TAB PO SCH (09:00)
[2023-04-16] MEDS ORDERED: HOME MED 1 EA UNK (Fluticasone/Umeclidin/Vilanter [Trelegy Ellipta 200-62.5-25] Blst.W.Dev IH SCH (09:00)
[2023-04-16] MEDS ORDERED: CEFAZOLIN SODIUM 2 GM in NA CHLORIDE 0.9% 100 ML IVPB SCH (09:15)
[2023-04-16] MEDS: HYDROCODONE/APAP 5/325 MG TAB PO PRN (10:17)
[2023-04-16 12:28] VITALS: TEMP 98.1
[2023-04-16] MEDS ORDERED: cloNIDine HCL 0.1 MG TAB PO ONE (13:00)
[2023-04-16 13:54] VITALS: O2SAT 96
[2023-04-16 14:54] VITALS: BP 139/86
== END 2023-04-16 15:05 | disposition home or self-care (01) | DRG 192 ==
LOC: ER 14:36 → ERHOLD 17:21 → 2ND 19:10 → OBSVTOIN 04-14 10:34
PROVIDERS: ADMIT Hospitalist; ATTEND Hospitalist
DX: J44.1 Chronic obstructive pulmonary disease with (acute) exacerbation (principal); E78.5 Hyperlipidemia, unspecified; I10 Essential (primary) hypertension; I48.0 Paroxysmal atrial fibrillation; K21.9 Gastro-esophageal reflux disease without esophagitis; F17.210 Nicotine dependence, cigarettes, uncomplicated; I25.2 Old myocardial infarction; R09.02 Hypoxemia; Z71.6 Tobacco abuse counseling; Z86.73 Personal history of transient ischemic attack (TIA), and cerebral infarction without residual deficits; Z90.49 Acquired absence of other specified parts of digestive tract; Z79.01 Long term (current) use of anticoagulants; Z79.82 Long term (current) use of aspirin; Z79.52 Long term (current) use of systemic steroids; Z79.899 Other long term (current) drug therapy; Z91.199 Patient's noncompliance with other medical treatment and regimen due to unspecified reason; Z95.810 Presence of automatic (implantable) cardiac defibrillator; Z20.822 Contact with and (suspected) exposure to COVID-19
CPT/HCPCS: 36415; 36600; 71045; 80048; 80076; 80202; 81001; 82805; 83605; 83735; 83880; 84100; 84484; 85025; 85610; 87040; 87077; 87186; 87205; 87635; 87804; 93005; 94660; 99285; J1100; J2270; J2920; J2930; J7030; J7040; J7050; J7613; J7614; J7644

== ENCOUNTER 2023-05-01 19:24 | Emergency (ER) | payer OTHER ==
--- OUTSIDE RECORDS SUMMARY | 2023-05-01 19:42 | XMS REPORT | Continuity of Care Document ---
:1960 Author Organization [facility] t Address [address] [place] [address] Care Team Providers Name Role Phone MILY MAY Primary Care Physician Unavailable HERMINIA OH Attending Clinician Unavailable NOMI MARY Attending Clinician Unavailable NOMI MARY Attending Clinician Unavailable Nomi Mary DO Attending Clinician Marika Monge RN Attending Clinician MARELY WATTERS Attending Clinician Unavailable MARELY WATTERS Attending Clinician Unavailable Rudy Xiao Attending Clinician Unavailable CARL ORLANDO Attending Clinician Unavailable CARL ORLANDO Attending Clinician Unavailable MILY MAY Attending Clinician Unavailable Doctor Unassigned, [place] Attending Clinician Unavailable Christa SAWYER, Mily De Leon Attending Clinician [phone] Uday ZAMORA, Taylor Mary Attending Clinician [...] Attending Clinician BESSIE OSWALD Attending Clinician Unavailable STEPHANIE ALMONTE Attending Clinician Unavailable Stephanie Almonte MD Attending Clinician IZA VARMA Attending Clinician Unavailable Kathia Paula MD Attending Clinician Agapito Hackett MD Attending Clinician María Diaz DO Attending Clinician MARISOL DEVLIN Attending Clinician Unavailable Marisol Devlin MD Attending Clinician Jem SAWYER, Dedrick Colin Attending Clinician Cecy Caro LVN Attending Clinician Carlo Valdez Attending Clinician Abi Swan MD Attending Clinician Clive Contreras MD Attending Clinician ERNESTO PIPER Attending Clinician Unavailable ERNESTO PIPER Attending Clinician Unavailable Krissy Powers MD Attending Clinician LEILA CHAPA Attending Clinician Unavailable Leila Chapa MD Attending Clinician Jeanette Weaver Attending Clinician [facility] Main Attending Clinician Unavailable Gokul Turner MD Attending Clinician GOKUL TURNER Attending Clinician Unavailable , [facility] Surg Spec Procedure Attending Clinician Unavailable JEANETTE MCDANIEL A Attending Clinician Unavailable Chris ZAMORA, Herminia Apple Attending Clinician Unavailable Tyrell Mckeon Attending Clinician Unavailable Ramesh Brown Attending Clinician Rudy Xiao Admitting Clinician Unavailable [...] Type Policy Number Effective Date Expiration Date [facility] [id number] 2018 MEDICARE GOLD 00:00:00 HUMANA CHOICE [id number] 2022 00:00:00 Problems Condition Condition Condition Status Onset Resolution Last Treating Co mments Source Name Details Category Date Date Treatment Clinician Date 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 Chronic Fracture - not acute Fall Fall Disease Active 2013-09 Univers 2-12 ity of 00:00: [place] [address] Medical Branch Atrial Atrial Disease Active 2013-09 Univers fibrillati fibrillati 10-28 it y of on on 00:00: [place] [address] Medical Branch VT VT Disease Active 2013-09 Univers (ventricul (ventricul 10-28 it y of ar ar 00:00: [place] tachycardi tachycardi 00 Me dical a) a) Branch Allergies, Adverse Reactions, Alerts Allergy Allergy Status Severity Reaction(s) Onset Inactive Treating Comm ents Source Name Type Date Date Clinician No Known DA Active U 2019-09 [facility]01 [place] 00:[facility]: [address] No Known DA Active U 2019-09 [facility] Allergie 0-01 [place] [facility] 00:00: [address] NO KNOWN Drug Active Univers ALLERGIE Class ity of S [facility] Social History Social Habit Start Date Stop Date Quantity Comments Source Gender identity Universit y of [facility] Sexual orientation Univer sity of [facility] History of tobacco Passive smoker Un iversity of use [place] [facility] History SDOH Social Unive rsity of [facility] Med ical Together Branch History SDOH Social Unive rsity of Connections [facility] Medical Branch History SDOH Social Unive rsity of Connections [place] [facility] Membership Branch History SDOH Social Unive rsity of [facility] Medical Meetings Branch History of Social 2023-03-01 2023-03-01 Univers ity of function 00:00:00 00:00:00 [facility] [place] [facility] Branch Alcohol intake 2023-03-01 2023-03-01 Current drinker Unive rsity of 00:00:00 00:00:00 of alcohol [place] [facility] (finding) Branch History SDOH 2023-02-18 2023-02-18 2 University o f Housing Unable to 00:00:00 00:00:00 [place] M edical Pay Branch History SDOH 2023-02-18 2023-02-18 1 University o f Housing Places 00:00:00 00:00:00 [place] Medi lucho Lived Branch History SDOH 2023-02-18 2023-02-18 2 University o f Housing Homeless 00:00:00 00:00:00 [place] Me dical Last Year Branch History SDOH 2023-02-18 2023-02-18 1 University o f Alcohol Frequency 00:00:00 00:00:00 [place] M edical Branch History SDOH Social 2023-02-18 2023-02-18 5 Unive rsity of Connections Phone 00:00:00 00:00:00 [place] M edical Branch History SDOH Social 2023-02-18 2023-02-18 7 Unive rsity of Connections Living 00:00:00 00:00:00 [place] [facility] History SDOH 2023-02-18 2023-02-18 0 University o f Physical Activity 00:00:00 00:00:00 [place] M edical DPW Branch History SDOH 2023-02-18 2023-02-18 0 University o f Physical Activity 00:00:00 00:00:00 [place] M edical MPS Branch History SDOH 2023-02-18 2023-02-18 5 University o f Financial 00:00:00 00:00:00 [place] [facility] History SDOH Food 2023-02-18 2023-02-18 1 Univers ity of Worry 00:00:00 00:00:00 [place] [facility] History SDOH Food 2023-02-18 2023-02-18 1 Univers ity of Scarcity 00:00:00 00:00:00 [place] [facility] History SDOH 2023-02-18 2023-02-18 2 University o f Transport Med 00:00:00 00:00:00 [place] Medic al Branch History SDOH 2023-02-18 2023-02-18 2 University o f Transport Non-Med 00:00:00 00:00:00 [place] M edical Branch Exposure to 2023-02-05 2023-02-15 Not sure University of SARS-CoV-2 (event) 00:00:00 15:15:00 [place] [facility] History SDOH 2022-12-02 2022-12-02 3 University o f Alcohol Std Drinks 00:00:00 00:00:00 [place] [facility] History SDOH 2022-12-02 2022-12-02 1 University o f Alcohol Binge 00:00:00 00:00:00 [facility] al Branch Cigarettes smoked 2022-11-09 2022-11-09 Univers ity of current (pack per 00:00:00 00:00:00 [place] ) - Reported Branch Tobacco use and 2022-11-09 2022-11-09 User of Universit y of exposure 00:00:00 00:00:00 smokeless [facility] [place] [facility] tobacco Branch Education 2022-11-09 2022-11-09 13 [facility] 00:00:00 00:00:00 [facility] Alcohol Comment 2014-08-27 2014-08-27 8 drinks per day Uni versity of 00:00:00 00:00:00 [facility] Sex [birth year] [facility] y of 00:00:00 00:00:00 [facility] Smoking Status Start Date Stop Date Source Smokes tobacco daily 2022-11-09 00:00:00 Univers ity of [facility] Medications Ordered Filled Start Stop Current Ordering Indication Dosage Frequency Signature Comments Components Source Medication Medication Date Date Medication? Clinician (SIG) Name Name fluticasone Yes 1{puff} Inhale 1 Univers propion-bella 8-01 Puff in ity o f meteroL 00:00: the [place] (ADVAIR 00 morning Medical DISKUS) and 1 Puff Branch 250-50 in the mcg/dose evening. inhalation disk tiotropium Yes 18ug Inhale 1 Uni vers 18 mcg 8-01 capsule in ity of inhalation 00:00: the [place] 00 morning. Medical Branch albuterol Yes 2{puff} Inhale 2 U nivers 90 8-01 Puffs ity of mcg/actuati 00:00: every 4 [place] as on inhaler 00 (four) Medical hours as Branch needed for Wheezing or Shortness of Breath. ipratropium Yes [id number] 3mL Inhale 3 Univers -albuteroL 8-01 mL every 6 ity of 0.5 mg-3 00:00: (six) [place] mg(2.5 mg 00 hours as Medica l base)/3 mL needed for Bra nch nebulizer Wheezing. solution fluticasone 2023-0 Yes 1{puff} Inhale 1 Univers propion-bella 8-01 Puff in ity o f meteroL 00:00: the (ADVAIR 00 morning Medical DISKUS) and 1 Puff Branch 250-50 in the mcg/dose evening. inhalation disk tiotropium 2023-0 Yes 18ug Inhale 1 Uni vers 18 mcg 8-01 capsule in ity of inhalation 00:00: the [place] 00 morning. Medical Branch albuterol 3-0 Yes 2{puff} Inhale 2 U nivers 90 8-01 Puffs ity of mcg/actuati 00:00: every 4 [place] as on inhaler 00 (four) Medical hours as Branch needed for Wheezing or Shortness of Breath. ipratropium 2023-0 Yes [id number] 3mL Inhale 3 Univers -albuteroL 8-01 mL every 6 ity of 0.5 mg-3 00:00: (six) [place] mg(2.5 mg 00 hours as Medica l base)/3 mL needed for Bra nch nebulizer Wheezing. solution fluticasone 2023-0 Yes 1{puff} Inhale 1 Univers propion-bella 8-01 Puff in ity o f meteroL 00:00: the [place] (ADVAIR 00 morning Medical DISKUS) and 1 Puff Branch 250-50 in the mcg/dose evening. inhalation disk tiotropium 2023-0 Yes 18ug Inhale 1 Uni vers 18 mcg 8-01 capsule in ity of inhalation 00:00: the [place] 00 morning. Medical Branch albuterol 3-0 Yes 2{puff} Inhale 2 U nivers 90 8-01 Puffs ity of mcg/actuati 00:00: every 4 [place] as on inhaler 00 (four) Medical hours as Branch needed for Wheezing or Shortness of Breath. ipratropium 2023-0 Yes [id number] 3mL Inhale 3 Univers -albuteroL 8-01 mL every 6 ity of 0.5 mg-3 00:00: (six) [place] mg(2.5 mg 00 hours as Medica l base)/3 mL needed for Bra nch nebulizer Wheezing. solution albuterol 2023-0 Yes [id number] 2.5mg Inhale 3 Univers 2.5 mg /3 6-15 mL every 4 ity of mL (0.083 00:00: (four) [place] %) 00 hours. May Medical nebulizer also Branch solution nebulize one extra every 6 hours. albuterol 3-0 Yes [id number] 2.5mg Inhale 3 Univers 2.5 mg /3 6-15 mL every 4 ity of mL (0.083 00:00: (four) [place] %) 00 hours. May Medical nebulizer also Branch solution nebulize one extra every 6 hours. albuterol 3-0 Yes [id number] 2.5mg Inhale 3 Univers 2.5 mg /3 6-15 mL every 4 ity of mL (0.083 00:00: (four) [place] %) 00 hours. May Medical nebulizer also Branch solution nebulize one extra every 6 hours. albuterol 3-0 Yes [id number] 2.5mg Inhale 3 Univers 2.5 mg /3 6-15 mL every 4 ity of mL (0.083 00:00: (four) [place] %) 00 hours. May Medical nebulizer also Branch solution nebulize one extra every 6 hours. donepeziL 5 2022-0 Yes [id number] 5mg Take 1 Univers mg tablet 6-13 tablet by ity o f 00:00: mouth in [place] the Medical morning. Branch memantine 5 2022-0 Yes [id number] 5mg Take 1 Univers mg tablet 6-13 tablet by ity o f 00:00: mouth in [place] the Medical morning. Branch donepeziL 5 2022-0 Yes [id number] 5mg Take 1 Univers mg tablet 6-13 tablet by ity o f 00:00: mouth in [place] the Medical morning. Branch memantine 5 2022-0 Yes [id number] 5mg Take 1 Univers mg tablet 6-13 tablet by ity o f 00:00: mouth in [place] 00 the Medical morning. Branch donepeziL 5 2022-0 Yes [id number] 5mg Take 1 Univers mg tablet 6-13 tablet by ity o f 00:00: mouth in [place] 00 the Medical morning. Branch memantine 5 2022-0 Yes [id number] 5mg Take 1 Univers mg tablet 6-13 tablet by ity o f 00:00: mouth in [place] 00 the Medical morning. Branch donepeziL 5 3-0 Yes [id number] 5mg Take 1 Univers mg tablet 6-13 tablet by ity o f 00:00: mouth in [place] 00 the Medical morning. Branch memantine 5 2022-0 Yes [id number] 5mg Take 1 Univers mg tablet 6-13 tablet by ity o f 00:00: mouth in [place] 00 the Medical morning. Branch donepeziL 5 3-0 Yes [id number] 5mg Take 1 Univers mg tablet 6-13 tablet by ity o f 00:00: mouth in [place] 00 the Medical morning. Branch memantine 5 2022-0 Yes [id number] 5mg Take 1 Univers mg tablet 6-13 tablet by ity o f 00:00: mouth in [place] 00 the Medical morning. Branch donepeziL 5 2022-0 Yes [id number] 5mg Take 1 Univers mg tablet 6-13 tablet by ity o f 00:00: mouth in [place] 00 the Medical morning. Branch memantine 5 2022-0 Yes [id number] 5mg Take 1 Univers mg tablet 6-13 tablet by ity o f 00:00: mouth in [place] 00 the Medical morning. Branch busPIRone 3-0 Yes 10mg Take 1 Univer s 10 mg 6-02 tablet by ity of tablet 16:15: mouth in [place] [address] the Medical morning Branch and 1 tablet in the evening. rivaroxaban 2023-0 Yes 15mg Take 1 Univ ers 15 mg 6-02 tablet by ity of tablet 16:15: mouth in [place] [address] the Medical morning. Branch ASPIRIN 2023-0 Yes 81mg Take 81 mg Univ ers ORAL 6-02 by mouth ity of 16:15: in the [place] [address] morning. Medical tablet Branch busPIRone 3-0 Yes 10mg Take 1 Univer s 10 mg 6-02 tablet by ity of tablet 16:15: mouth in [place] [address] the Medical morning Branch and 1 tablet in the evening. rivaroxaban 2023-0 Yes 15mg Take 1 Univ ers 15 mg 6-02 tablet by ity of tablet 16:15: mouth in [place] [address] the Medical morning. Branch ASPIRIN 2023-0 Yes 81mg Take 81 mg Univ ers ORAL 6-02 by mouth ity of 16:15: in the [place] [address] morning. Medical tablet Branch busPIRone 2023-0 Yes 10mg Take 1 Univer s 10 mg 6-02 tablet by ity of tablet 16:15: mouth in [place] [address] the Medical morning Branch and 1 tablet in the evening. rivaroxaban 2023-0 Yes 15mg Take 1 Univ ers 15 mg 6-02 tablet by ity of tablet 16:15: mouth in [place] [address] the Medical morning. Branch ASPIRIN 2023-0 Yes 81mg Take 81 mg Univ ers ORAL 6-02 by mouth ity of 16:15: in the [place] [address] morning. Medical tablet Branch busPIRone 2023-0 Yes 10mg Take 1 Univer s 10 mg 6-02 tablet by ity of tablet 16:15: mouth in [place] [address] the Medical morning Branch and 1 tablet in the evening. rivaroxaban 2023-0 Yes 15mg Take 1 Univ ers 15 mg 6-02 tablet by ity of tablet 16:15: mouth in [place] [address] the Medical morning. Branch ASPIRIN 2023-0 Yes 81mg Take 81 mg Univ ers ORAL 6-02 by mouth ity of 16:15: in the [place] [address] morning. Medical tablet Branch busPIRone 2023-0 Yes 10mg Take 1 Univer s 10 mg 6-02 tablet by ity of tablet 16:15: mouth in [place] [address] the Medical morning Branch and 1 tablet in the evening. rivaroxaban 2023-0 Yes 15mg Take 1 Univ ers 15 mg 6-02 tablet by ity of tablet 16:15: mouth in [place] [address] the Medical morning. Branch ASPIRIN 2023-0 Yes 81mg Take 81 mg Univ ers ORAL 6-02 by mouth ity of 16:15: in the [place] [address] morning. Medical tablet Branch busPIRone 2023-0 Yes 10mg Take 1 Univer s 10 mg 6-02 tablet by ity of tablet 16:15: mouth in [place] [address] the Medical morning Branch and 1 tablet in the evening. rivaroxaban 2023-0 Yes 15mg Take 1 Univ ers 15 mg 6-02 tablet by ity of tablet 16:15: mouth in [place] [address] the Medical morning. Branch ASPIRIN 2023-0 Yes 81mg Take 81 mg Univ ers ORAL 6-02 by mouth ity of 16:15: in the [place] [address] morning. Medical tablet Branch busPIRone 2023-0 Yes 10mg Take 1 Univer s 10 mg 6-02 tablet by ity of tablet 16:15: mouth in [place] [address] the Medical morning Branch and 1 tablet in the evening. rivaroxaban 2023-0 Yes 15mg Take 1 Univ ers 15 mg 6-02 tablet by ity of tablet 16:15: mouth in [place] [address] the Medical morning. Branch ASPIRIN 2023-0 Yes 81mg Take 81 mg Univ ers ORAL 6-02 by mouth ity of 16:15: in the [place] [address] morning. Medical tablet Branch busPIRone 2023-0 Yes 10mg Take 1 Univer s 10 mg 6-02 tablet by ity of tablet 16:15: mouth in [place] [address] the Medical morning Branch and 1 tablet in the evening. rivaroxaban 2023-0 Yes 15mg Take 1 Univ ers 15 mg 6-02 tablet by ity of tablet 16:15: mouth in [place] [address] the Medical morning. Branch ASPIRIN 2023-0 Yes 81mg Take 81 mg Univ ers ORAL 6-02 by mouth ity of 16:15: in the [place] [address] morning. Medical tablet Branch busPIRone 2023-0 Yes 10mg Take 1 Univer s 10 mg 6-02 tablet by ity of tablet 16:15: mouth in [place] [address] the Medical morning Branch and 1 tablet in the evening. rivaroxaban 2023-0 Yes 15mg Take 1 Univ ers 15 mg 6-02 tablet by ity of tablet 16:15: mouth in [place] [address] the Medical morning. Branch ASPIRIN 2023-0 Yes 81mg Take 81 mg Univ ers ORAL 6-02 by mouth ity of 16:15: in the [place] [address] morning. Medical tablet Branch busPIRone 2023-0 Yes 10mg Take 1 Univer s 10 mg 6-02 tablet by ity of tablet 16:15: mouth in [place] [address] the Medical morning Branch and 1 tablet in the evening. rivaroxaban 2023-0 Yes 15mg Take 1 Univ ers 15 mg 6-02 tablet by ity of tablet 16:15: mouth in [place] [address] the Medical morning. Branch ASPIRIN 2023-0 Yes 81mg Take 81 mg Univ ers ORAL 6-02 by mouth ity of 16:15: in the [place] [address] morning. Medical tablet Branch predniSONE 2023-0 2023- Yes [id number] 40mg Take 2 Univers 20 mg 6-02 06-06 tablets by ity of tablet 00:00: 04:59 mouth in [place] 00 :00 the Medical morning Branch for 3 days. predniSONE 2022-0 2022- Yes [id number] 40mg Take 2 Univers 20 mg 6-10 25-06 tablets by ity of tablet 00:00: 04:59 mouth in [place] 00 :00 the Medical morning Branch for 3 days. predniSONE 2022-0 2022- Yes [id number] 40mg Take 2 Univers 20 mg 6- 06-06 tablets by ity of tablet 00:00: 04:59 mouth in [place] 00 :00 the Medical morning Branch for 3 days. midodrine 5 2022-0 Yes [id number] 5mg Take 1 Univers mg tablet 6-01 tablet by ity o f 00:00: mouth [place] 00 every 8 Medical (eight) Branch hours as needed (Hypotensi on SBP <95 or DBP <50). midodrine 5 2022-0 Yes [id number] 5mg Take 1 Univers mg tablet 6-01 tablet by ity o f 00:00: mouth [place] 00 every 8 Medical (eight) Branch hours as needed (Hypotensi on SBP <95 or DBP <50). midodrine 5 0 Yes [id number] 5mg Take 1 Univers mg tablet 6-01 tablet by ity o f 00:00: mouth [place] 00 every 8 Medical (eight) Branch hours as needed (Hypotensi on SBP <95 or DBP <50). midodrine 5 2022-0 Yes [id number] 5mg Take 1 Univers mg tablet 6-01 tablet by ity o f 00:00: mouth [place] 00 every 8 Medical (eight) Branch hours as needed (Hypotensi on SBP <95 or DBP <50). midodrine 5 0 Yes [id number] 5mg Take 1 Univers mg tablet 6-01 tablet by ity o f 00:00: mouth [place] 00 every 8 Medical (eight) Branch hours as needed (Hypotensi on SBP <95 or DBP <50). midodrine 5 2022-0 Yes [id number] 5mg Take 1 Univers mg tablet 6-01 tablet by ity o f 00:00: mouth [place] 00 every 8 Medical (eight) Branch hours as needed (Hypotensi on SBP <95 or DBP <50). midodrine 5 2022-0 Yes [id number] 5mg Take 1 Univers mg tablet 6-01 tablet by ity o f 00:00: mouth [place] 00 every 8 Medical (eight) Branch hours as needed (Hypotensi on SBP <95 or DBP <50). midodrine 5 2022-0 Yes [id number] 5mg Take 1 Univers mg tablet 6-01 tablet by ity o f 00:00: mouth [place] 00 every 8 Medical (eight) Branch hours as needed (Hypotensi on SBP <95 or DBP <50). midodrine 5 2022-0 Yes [id number] 5mg Take 1 Univers mg tablet 6-01 tablet by ity o f 00:00: mouth [place] 00 every 8 Medical (eight) Branch hours as needed (Hypotensi on SBP <95 or DBP <50). midodrine 5 2022-0 Yes [id number] 5mg Take 1 Univers mg tablet 6-01 tablet by ity o f 00:00: mouth [place] 00 every 8 Medical (eight) Branch hours as needed (Hypotensi on SBP <95 or DBP <50). midodrine 2022-0 Yes 5mg 5 mg, Univers (PROAMATINE -31 Oral, Q8H, it y of ) tablet 5 19:00: First dose [place] mg 00 on Tue Medical 02/16/23 at Branch 1400, Until Discontinu ed, Routine rivaroxaban 2022-0 Yes 15mg 15 mg, Univ ers (XARELTO) 02-16 Oral, ity of tablet 15 14:00: DAILY, [place] mg 00 First dose Medical on Tue Branch 02/16/23 at 0900, Until Discontinu ed, Routine montelukast 2022-0 Yes 10mg 10 mg, Univ ers (SINGULAIR) 02-16 Oral, ity of tablet 10 14:00: DAILY, [place] mg 00 First dose Medical on Tue Branch 02/16/23 at 0900, Until Discontinu ed, Routine memantine 2022-0 Yes 5mg 5 mg, Univers (NAMENDA) 5-31 Oral, ity of tablet 5 mg 14:00: DAILY, [place] First dose Medical on Tue Branch 02/16/23 at 0900, Until Discontinu ed, Routine
amphibian crewmember approving Restricted medication : DEDRICK TOTH donepeziL 2022-0 Yes 5mg 5 mg, Univers (ARICEPT) 5-31 Oral, ity of tablet 5 mg 14:00: [...] Yes 40mg 40 mg, Univ ers (DELTASONE) 02-1605 Oral, ity of tablet 40 14:00: 13:59 DAILY, 5 [place] as mg 00 :00 doses, Medical First dose Branch on Tue02/16/23 at 0900, Last dose on Tue02/20/23 at 0900, Routine sulfur 2022- No [id number] 5mL 5 mL, Unive rs hexafluorid 02-16 Intravenou i ty of e microsphr 14:00: 14:00 s, ONCE, 1 [place] (LUMASON) 00 :00 dose, On Medica l injection Tue Branch mL 02/16/23 at 0900, Routine
amphibian crewmember approving Restricted medication : STEFFANIE REYES budesonide- Yes 2{puff} 2 Puff, Univers formoteroL 02-16 [...] of succ 05:43: 05:51 s, ONCE, 1 [place] (SOLU-MEDRO 00 :00 [...] mg First dose Branch on Tue02/15/23 at 2014, Last dose on Tue02/20/23 at 0815, MICHAEL
Re ason for Anti-Infec tive: Documented Infection< br>Documen anirudh Infection Site: Respirator y
Durat ion of Therapy: 7 days NaCl 0.9% 2022- No 1000mL at 100 Uni vers (NS) IV 02-16 mL/hr, IV ity of infusion 01:00: 12:47 Infusion, [place] 1,000 mL 00 :05 CONTINUOUS Medic al , Starting Branch on Tue02/15/23 at 2000, Until Tue02/16/23 at 0747, Routine ipratropium Yes 3mL 3 mL, Unive rs -albuteroL 02-16 Inhalation ity of (DUONEB) 00:53: , Q6HPRN, [place] 0.5 mg-3 35 Starting Medical mg(2.5 mg on Tue Branch base)/3 mL 02/15/23 at nebulizer 1952, solution 3 Until mL Discontinu ed, Routine, Wheezing, Shortness of Breath HYDROcodone Yes 1{tbl} 1 tablet, Univers -acetaminop 02-16 Oral, ity of hen (NORCO) 00:52: Q6HPRN, [place] as 10-325 mg 26 Starting Medica l tablet 1 on [facility] tablet 02/15/23 at 1951, Until Discontinu ed, Routine, Pain (scale 7-10) traMADoL 0 2022- No 50mg 50 mg, Univer s (ULTRAM) 02-16-02 Oral, ity of tablet 50 00:52: 00:51 Q8HPRN, [place] mg 22 :22 Starting Medical on [facility] 02/15/23 at 1951, Until [place] 02/17/23 at 1950, Routine, Pain (scale 4-6) acetaminoph Yes 650mg 650 mg, Un igor en 02-16 Oral, ity of (TYLENOL) 00:52: Q6HPRN, [place] tablet 650 16 Starting Medic al mg on [facility] 02/15/23 at 1951, Until Discontinu ed, Routine, Pain (scale 1-3) NaCl 0.9% 2022- No 1000mL at 999 Uni vers (NS) bolus 5-30 05-30 mL/hr, ity of infusion 22:15: 22:51 1,000 mL, [place] 1,000 mL 00 :00 IV Medical Infusion, Branch ONCE, 1 dose, On [facility] 02/15/23 at 1715, MICHAEL NaCl 0.9% 0 2022- No 1000mL at 999 Uni vers (NS) bolus 5-30 05-30 mL/hr, ity of infusion 21:30: 22:43 1,000 mL, [place] 1,000 mL 00 :00 IV Medical Infusion, Branch ONCE, 1 dose, On [facility] 02/15/23 at 1630, MICHAEL NaCl 0.9% 2022-0 2022- No 1000mL at 999 Uni vers (NS) bolus 5-30 05-30 mL/hr, ity of infusion 20:45: 22:43 1,000 mL, [place] 1,000 mL 00 :00 IV Medical Infusion, Branch ONCE, 1 dose, On 02/15/23 at 1545, MICHAEL ipratropium 0 2022- Yes 3mL 3 mL, Univ ers -albuteroL 02-05 Inhalation it y of (DUONEB) 22:15: 10:14 , ONCE, 1 [place] 0.5 mg-3 00 :00 dose, On Medical mg(2.5 mg Sat Branch base)/3 mL 02/05/23 at nebulizer 1715, MICHAEL solution 3 mL ipratropium 2022- No 3mL 3 mL, Univ ers -albuteroL 02-05 Inhalation it y of (DUONEB) 21:15: 20:17 , ONCE, 1 [place] 0.5 mg-3 00 :00 dose, On Medical mg(2.5 mg Sat Branch base)/3 mL 02/05/23 at nebulizer 1615, MICHAEL solution 3 mL predniSONE 2022- No 40mg 40 mg, Univ ers (DELTASONE) 02-05 Oral, ity of tablet 40 20:15: 20:18 [...] mg 02/04/23 at 1615, MICHAEL albuterol Yes [id number] 2{puff} Inhale 2 Univers 90 -19 Puffs ity of mcg/actuati 00:00: every 4 [place] as on inhaler 00 (four) Medical hours as Branch needed for Wheezing or Shortness of Breath. albuterol Yes [id number] 2{puff} Inhale 2 Univers 90 5-19 Puffs ity of mcg/actuati 00:00: every 4 [place] on inhaler 00 (four) Medical hours as Branch needed for Wheezing or Shortness of Breath. albuterol Yes [id number] 2{puff} Inhale 2 Univers 90 5-19 Puffs ity of mcg/actuati 00:00: every 4 [place] as on inhaler 00 (four) Medical hours as Branch needed for Wheezing or Shortness of Breath. albuterol Yes [id number] 2{puff} Inhale 2 [facility] 90 5-19 Puffs ity of mcg/actuati 00:00: every 4 [place] as on inhaler 00 (four) Medical hours as Branch needed for Wheezing or Shortness of Breath. albuterol Yes [id number] 2{puff} Inhale 2 [facility] 90 5-19 Puffs ity of mcg/actuati 00:00: every 4 [place] as on inhaler 00 (four) Medical hours as Branch needed for Wheezing or Shortness of Breath. albuterol Yes [id number] 2{puff} Inhale 2 [facility] 90 5-19 Puffs ity of mcg/actuati 00:00: every 4 [place] as on inhaler 00 (four) Medical hours as Branch needed for Wheezing or Shortness of Breath. albuterol Yes [id number] 2{puff} Inhale 2 [facility] 90 5-19 Puffs ity of mcg/actuati 00:00: every 4 [place] as on inhaler 00 (four) Medical hours as Branch needed for Wheezing or Shortness of Breath. albuterol Yes [id number] 2{puff} Inhale 2 [facility] 90 5-19 Puffs ity of mcg/actuati 00:00: every 4 [place] as on inhaler 00 (four) Medical hours as Branch needed for Wheezing or Shortness of Breath. albuterol Yes [id number] 2{puff} Inhale 2 [facility] 90 5-19 Puffs ity of mcg/actuati 00:00: every 4 [place] as on inhaler 00 (four) Medical hours as Branch needed for Wheezing or Shortness of Breath. albuterol 2023-0 Yes [id number] 2{puff} Inhale 2 [facility] 90 5-19 Puffs ity of mcg/actuati 00:00: every 4 [place] as on inhaler 00 (four) Medical hours as Branch needed for Wheezing or Shortness of Breath. albuterol 2022-0 2022- No [id number] 2{puff} Inhale 2 [facility] 90 5-19 08-01 Puffs ity of mcg/actuati 00:00: 00:00 every 4 [place] inhaler 00 :00 (four) Medical hours as Branch needed for Wheezing or Shortness of Breath. albuterol 2022-0 2022- No [id number] 2{puff} Inhale 2 [facility] 90 5-19 08-01 Puffs ity of mcg/actuati 00:00: 00:00 every 4 [place] on inhaler 00 :00 (four) Medical hours as Branch needed for Wheezing or Shortness of Breath. ipratropium 2022-0 Yes 3mL 3 mL, Unive rs -albuteroL 5-18 Inhalation ity of (DUONEB) 21:00: , QID, [place] 0.5 mg-3 00 First dose Medic al mg(2.5 mg on [place] Branch base)/3 mL 02/03/23 at nebulizer 1600, solution 3 Until mL Discontinu ed, Routine methylpredn 0 2022- No 125mg 125 mg, U nivers isolone sod -18 05-18 Intravenou i ty of succ 18:45: 18:16 s, ONCE, 1 [place] (SOLU-MEDRO 00 :00 dose, On Medi lucho L) [place] Branch injection 02/03/23 at 125 mg 1345, 2 mL ipratropium 2022-0 2022- No 3mL 3 mL, Univ ers -albuteroL 5-17 05-17 Inhalation it y of (DUONEB) 23:15: 22:13 , ONCE, 1 [place] as 0.5 mg-3 00 :00 dose, On Medical mg(2.5 mg Wed Branch base)/3 mL 02/02/23 at nebulizer 1815, solution 3 Routine mL fluticasone 2022-0 Yes [id number] 1{puff} Inhale 1 [facility] propion-bella 5-15 Puff in ity o f meteroL 00:00: the [place] (ADVAIR 00 morning Medical DISKUS) and 1 Puff Branch 250-50 in the mcg/dose evening. inhalation disk montelukast 3-0 Yes [id number] 10mg Take 1 [facility] 10 mg 5-15 tablet by ity of tablet 00:00: mouth in [place] 00 the Medical morning. Branch tiotropium 3-0 Yes [id number] 18ug Inhale 1 [facility] 18 mcg 5-15 capsule in ity of inhalation 00:00: the [place] 00 morning. Medical Branch fluticasone 2023-0 Yes [id number] 1{puff} Inhale 1 [facility] propion-bella 5-15 Puff in ity o f meteroL 00:00: the [place] (ADVAIR 00 morning Medical DISKUS) and 1 Puff Branch 250-50 in the mcg/dose evening. inhalation disk montelukast 3-0 Yes [id number] 10mg Take 1 [facility] 10 mg 5-15 tablet by ity of tablet 00:00: mouth in [place] 00 the morning. Branch tiotropium 3-0 Yes [id number] 18ug Inhale 1 [facility] 18 mcg 5-15 capsule in ity of inhalation 00:00: the [place] 00 morning. Medical Branch fluticasone 3-0 Yes [id number] 1{puff} Inhale 1 [facility] propion-bella 5-15 Puff in ity o f meteroL 00:00: the [place] (ADVAIR 00 morning Medical DISKUS) and 1 Puff Branch 250-50 in the mcg/dose evening. inhalation disk montelukast 3-0 Yes [id number] 10mg Take 1 [facility] 10 mg 5-15 tablet by ity of tablet 00:00: mouth in [place] 00 the morning. Branch tiotropium 3-0 Yes [id number] 18ug Inhale 1 [facility] 18 mcg 5-15 capsule in ity of inhalation 00:00: the [place] 00 morning. Medical Branch fluticasone 2023-0 Yes [id number] 1{puff} Inhale 1 [facility] propion-bella 5-15 Puff in ity o f meteroL 00:00: the [place] (ADVAIR 00 morning Medical DISKUS) and 1 Puff Branch 250-50 in the mcg/dose evening. inhalation disk montelukast 3-0 Yes [id number] 10mg Take 1 [facility] 10 mg 5-15 tablet by ity of tablet 00:00: mouth in [place] 00 the Medical morning. Branch tiotropium 2022-0 Yes [id number] 18ug Inhale 1 [facility] 18 mcg 5-15 capsule in ity of inhalation 00:00: the [place] 00 morning. Medical Branch fluticasone 2022-0 Yes [id number] 1{puff} Inhale 1 [facility] propion-bella 5-15 Puff in ity o f meteroL 00:00: the [place] (ADVAIR 00 morning Medical DISKUS) and 1 Puff Branch 250-50 in the mcg/dose evening. inhalation disk montelukast 2022-0 Yes [id number] 10mg Take 1 [facility] 10 mg 5-15 tablet by ity of tablet 00:00: mouth in [place] 00 the Medical morning. Branch tiotropium 2022-0 Yes [id number] 18ug Inhale 1 [facility] 18 mcg 5-15 capsule in ity of inhalation 00:00: the [place] 00 morning. Medical Branch fluticasone 2022-0 Yes [id number] 1{puff} Inhale 1 [facility] propion-bella 5-15 Puff in ity o f meteroL 00:00: the [place] (ADVAIR 00 morning Medical DISKUS) and 1 Puff Branch 250-50 in the mcg/dose evening. inhalation disk montelukast 2022-0 Yes [id number] 10mg Take 1 [facility] 10 mg 5-15 tablet by ity of tablet 00:00: mouth in [place] 00 the Medical morning. Branch tiotropium 2022-0 Yes [id number] 18ug Inhale 1 [facility] 18 mcg 5-15 capsule in ity of inhalation 00:00: the [place] 00 morning. Medical Branch fluticasone 2022-0 Yes [id number] 1{puff} Inhale 1 [facility] propion-bella 5-15 Puff in ity o f meteroL 00:00: the [place] (ADVAIR 00 morning Medical DISKUS) and 1 Puff Branch 250-50 in the mcg/dose evening. inhalation disk montelukast 3-0 Yes [id number] 10mg Take 1 [facility] 10 mg 5-15 tablet by ity of tablet 00:00: mouth in [place] 00 the Medical morning. Branch tiotropium 2022-0 Yes [id number] 18ug Inhale 1 [facility] 18 mcg 5-15 capsule in ity of inhalation 00:00: the [place] 00 morning. Medical Branch fluticasone 2022-0 Yes [id number] 1{puff} Inhale 1 [facility] propion-bella 5-15 Puff in ity o f meteroL 00:00: the [place] (ADVAIR 00 morning Medical DISKUS) and 1 Puff Branch 250-50 in the mcg/dose evening. inhalation disk montelukast 2022-0 Yes [id number] 10mg Take 1 [facility] 10 mg 5-15 tablet by ity of tablet 00:00: mouth in [place] 00 the Medical morning. Branch tiotropium 2022-0 Yes [id number] 18ug Inhale 1 [facility] 18 mcg 5-15 capsule in ity of inhalation 00:00: the [place] 00 morning. Medical Branch fluticasone 2022-0 Yes [id number] 1{puff} Inhale 1 [facility] propion-bella 5-15 Puff in ity o f meteroL 00:00: the [place] (ADVAIR 00 morning Medical DISKUS) and 1 Puff Branch 250-50 in the mcg/dose evening. inhalation disk montelukast 2022-0 Yes [id number] 10mg Take 1 [facility] 10 mg 5-15 tablet by ity of tablet 00:00: mouth in [place] 00 the Medical morning. Branch tiotropium 2022-0 Yes [id number] 18ug Inhale 1 [facility] 18 mcg 5-15 capsule in ity of inhalation 00:00: the [place] 00 morning. Medical Branch montelukast 2022-0 Yes [id number] 10mg Take 1 [facility] 10 mg 5-15 tablet by ity of tablet 00:00: mouth in [place] 00 the Medical morning. Branch montelukast 2022-0 Yes [id number] 10mg Take 1 [facility] 10 mg 5-15 tablet by ity of tablet 00:00: mouth in [place] 00 the Medical morning. Branch montelukast 2022-0 Yes [id number] 10mg Take 1 [facility] 10 mg 5-15 tablet by ity of tablet 00:00: mouth in [place] 00 the Medical morning. Branch albuterol 2022-0 Yes [id number] 2{puff} Inhale 2 [facility] 90 5-15 Puffs ity of mcg/actuati 00:00: every 4 [place] on inhaler 00 (four) Medical hours as Branch needed for Wheezing, Shortness of Breath or Bronchospa sm. fluticasone 2022-0 Yes [id number] 1{puff} Inhale 1 [facility] propion-bella 5-15 Puff in ity o f meteroL 00:00: the [place] (ADVAIR 00 morning Medical DISKUS) and 1 Puff Branch 250-50 in the mcg/dose evening. inhalation disk montelukast 2022-0 Yes [id number] 10mg Take 1 [facility] 10 mg 5-15 tablet by ity of tablet 00:00: mouth in [place] 00 the Medical morning. Branch tiotropium 2022-0 Yes [id number] 18ug Inhale 1 [facility] 18 mcg 5-15 capsule in ity of inhalation 00:00: the [place] 00 morning. Medical Branch albuterol 2022-0 Yes [id number] 2{puff} Inhale 2 [facility] 90 5-15 Puffs ity of mcg/actuati 00:00: every 4 [place] on inhaler 00 (four) Medical hours as Branch needed for Wheezing, Shortness of Breath or Bronchospa sm. fluticasone 2022-0 Yes [id number] 1{puff} Inhale 1 [facility] propion-bella 5-15 Puff in ity o f meteroL 00:00: the [place] (ADVAIR 00 morning Medical DISKUS) and 1 Puff Branch 250-50 in the mcg/dose evening. inhalation disk montelukast 2022-0 Yes [id number] 10mg Take 1 [facility] 10 mg 5-15 tablet by ity of tablet 00:00: mouth in [place] 00 the Medical morning. Branch tiotropium 2022-0 Yes [id number] 18ug Inhale 1 [facility] 18 mcg 5-15 capsule in ity of inhalation 00:00: the [place] 00 morning. Medical Branch albuterol 2022-0 Yes [id number] 2{puff} Inhale 2 [facility] 90 5-15 Puffs ity of mcg/actuati 00:00: every 4 [place] on inhaler 00 (four) Medical hours as Branch needed for Wheezing, Shortness of Breath or Bronchospa sm. fluticasone 2022-0 Yes [id number] 1{puff} Inhale 1 [facility] propion-bella 5-15 Puff in ity o f meteroL 00:00: the [place] (ADVAIR 00 morning Medical DISKUS) and 1 Puff Branch 250-50 in the mcg/dose evening. inhalation disk montelukast 2022-0 Yes [id number] 10mg Take 1 [facility] 10 mg 5-15 tablet by ity of tablet 00:00: mouth in [place] 00 the Medical morning. Branch tiotropium 2022-0 Yes [id number] 18ug Inhale 1 [facility] 18 mcg 5-15 capsule in ity of inhalation 00:00: the [place] 00 morning. Medical Branch albuterol 2022-0 Yes [id number] 2{puff} Inhale 2 [facility] 90 5-15 Puffs ity of mcg/actuati 00:00: every 4 [place] on inhaler 00 (four) Medical hours as Branch needed for Wheezing, Shortness of Breath or Bronchospa sm. fluticasone 2022-0 Yes [id number] 1{puff} Inhale 1 [facility] propion-bella 5-15 Puff in ity o f meteroL 00:00: the [place] (ADVAIR 00 morning Medical DISKUS) and 1 Puff Branch 250-50 in the mcg/dose evening. inhalation disk montelukast 2022-0 Yes [id number] 10mg Take 1 [facility] 10 mg 5-15 tablet by ity of tablet 00:00: mouth in [place] the morning. Branch tiotropium 2022-0 Yes [id number] 18ug Inhale 1 [facility] 18 mcg 5-15 capsule in ity of inhalation 00:00: the [place] 00 morning. Medical Branch fluticasone 2022-0 Yes [id number] 1{puff} Inhale 1 [facility] propion-bella 5-15 Puff in ity o f meteroL 00:00: the [place] (ADVAIR 00 morning Medical DISKUS) and 1 Puff Branch 250-50 in the mcg/dose evening. inhalation disk montelukast 2022-0 Yes [id number] 10mg Take 1 [facility] 10 mg 5-15 tablet by ity of tablet 00:00: mouth in [place] 00 the Medical morning. Branch tiotropium 2022-0 Yes [id number] 18ug Inhale 1 [facility] 18 mcg 5-15 capsule in ity of inhalation 00:00: the [place] 00 morning. Medical Branch fluticasone 2022-0 2023- No [id number] 1{puff} Inhale 1 [facility] propion-bella 5-15 08-01 Puff in ity of meteroL 00:00: 00:00 [facility] (ADVAIR 00 :00 morning Medical DISKUS) and 1 Puff Branch 250-50 in the mcg/dose evening. inhalation disk tiotropium 2022-0 3- No [id number] 18ug Inhale 1 Univers 18 mcg 5-15 08-01 capsule in ity of inhalation 00:00: 00:00 [facility] 00 :00 morning. Medical Branch fluticasone 2022-0 2022- No [id number] 1{puff} Inhale 1 [facility] propion-bella 5-15 08-01 Puff in ity of meteroL 00:00: 00:00 [facility] (ADVAIR 00 :00 morning Medical DISKUS) and 1 Puff Branch 250-50 in the mcg/dose evening. inhalation disk tiotropium 2022-0 2022- No [id number] 18ug Inhale 1 Univers 18 mcg 5-15 08-01 capsule in ity of inhalation 00:00: 00:00 [facility] 00 :00 morning. Medical Branch albuterol 2022-0 2022- No [id number] 2{puff} Inhale 2 Univers 90 5-15 05-19 [...] nebulizer 0930, MICHAEL solution 3 mL predniSONE 2022-2022- No 60mg 60 mg, Univ ers (DELTASONE) 01-29 Oral, ity of tablet 60 13:30: 13:22 ONCE, 1 [place] mg 00 :00 dose, On Medical Sat Branch 01/29/23 at 0830, MICHAEL ipratropium 2023-0 Yes 3mL 3 mL, Unive rs -albuteroL 01-27 Inhalation ity of (DUONEB) 13:00: , QID, [place] 0.5 mg-3 00 First dose Medic al mg(2.5 mg on [facility] base)/3 mL 01/27/23 at nebulizer 0800, solution 3 Until mL Discontinu ed, Routine ipratropium 2022- No 3mL 3 mL, Univ ers -albuteroL 01-24- Inhalation it y of (DUONEB) 18:00: 18:15 , ONCE, 1 [place] as 0.5 mg-3 00 :00 dose, On Medical mg(2.5 mg 01/24/23 [facility] base[facility]3 mL at 1300, nebulizer MICHAEL solution 3 mL furosemide 2022- No 40mg 40 mg, IV U nivers (LASIX) 01-24- Push, ity of injection 18:00: 18:42 ONCE, [place] 40 mg 00 :00 dose, On Medical [facility] 01/24/23 Branch at 1300, MICHAEL aspirin 2022-0 2022- No 325mg 325 mg, Unive rs tablet 325 01-2408 Oral, ity of mg 18:00: 18:44 ONCE, 1 [place] 00 :00 dose, On Medical [facility] 01/24/23 Branch at 1300, STAT busPIRone 2022-0 Yes 10mg Take 1 Univer s 10 mg 5-08 tablet by ity of tablet 15:48: mouth in [place] [address] the Medical morning Branch and 1 tablet in the evening. rivaroxaban 2022-0 Yes 15mg Take 1 Univ ers 15 mg 5-08 tablet by ity of tablet 15:48: mouth in [place] [address] the Medical morning. Branch ASPIRIN 3-0 Yes 81mg Take 81 mg Univ ers ORAL 5-08 by mouth ity of 15:48: in the [place] [address] morning. Medical tablet Branch busPIRone 3-0 Yes 10mg Take 1 Univer s 10 mg 5-08 tablet by ity of tablet 15:48: mouth in [place] [address] the Medical morning Branch and 1 tablet in the evening. rivaroxaban 3-0 Yes 15mg Take 1 Univ ers 15 mg 5-08 tablet by ity of tablet 15:48: mouth in [place] [address] the Medical morning. Branch ASPIRIN 2023-0 Yes 81mg Take 81 mg Univ ers ORAL 5-08 by mouth ity of 15:48: in the [place] [address] morning. Medical tablet Branch busPIRone 2023-0 Yes 10mg Take 1 Univer s 10 mg 5-08 tablet by ity of tablet 15:48: mouth in [place] [address] the Medical morning Branch and 1 tablet in the evening. rivaroxaban 2023-0 Yes 15mg Take 1 Univ ers 15 mg 5-08 tablet by ity of tablet 15:48: mouth in [place] [address] the Medical morning. Branch ASPIRIN 2023-0 Yes 81mg Take 81 mg Univ ers ORAL 5-08 by mouth ity of 15:48: in the [place] [address] morning. Medical tablet Branch busPIRone 2023-0 Yes 10mg Take 1 Univer s 10 mg 5-08 tablet by ity of tablet 15:48: mouth in [place] [address] the Medical morning Branch and 1 tablet in the evening. rivaroxaban 2023-0 Yes 15mg Take 1 Univ ers 15 mg 5-08 tablet by ity of tablet 15:48: mouth in [place] [address] the Medical morning. Branch ASPIRIN 2023-0 Yes 81mg Take 81 mg Univ ers ORAL 5-08 by mouth ity of 15:48: in the [place] [address] morning. Medical tablet Branch busPIRone 2023-0 Yes 10mg Take 1 Univer s 10 mg 5-08 tablet by ity of tablet 15:48: mouth in [place] [address] the Medical morning Branch and 1 tablet in the evening. rivaroxaban 2023-0 Yes 15mg Take 1 Univ ers 15 mg 5-08 tablet by ity of tablet 15:48: mouth in [place] [address] the Medical morning. Branch ASPIRIN 2023-0 Yes 81mg Take 81 mg Univ ers ORAL 5-08 by mouth ity of 15:48: in the [place] [address] morning. Medical tablet Branch busPIRone 2023-0 Yes 10mg Take 1 Univer s 10 mg 5-08 tablet by ity of tablet 15:48: mouth in [place] [address] the Medical morning Branch and 1 tablet in the evening. rivaroxaban 2023-0 Yes 15mg Take 1 Univ ers 15 mg 5-08 tablet by ity of tablet 15:48: mouth in [place] [address] the Medical morning. Branch ASPIRIN 2023-0 Yes 81mg Take 81 mg Univ ers ORAL 5-08 by mouth ity of 15:48: in the [place] [address] morning. Medical tablet Branch busPIRone 2023-0 Yes 10mg Take 1 Univer s 10 mg 5-08 tablet by ity of tablet 15:48: mouth in [place] [address] the Medical morning Branch and 1 tablet in the evening. rivaroxaban 2023-0 Yes 15mg Take 1 Univ ers 15 mg 5-08 tablet by ity of tablet 15:48: mouth in [place] [address] the Medical morning. Branch ASPIRIN 2023-0 Yes 81mg Take 81 mg Univ ers ORAL 5-08 by mouth ity of 15:48: in the [place] [address] morning. Medical tablet Branch busPIRone 2023-0 Yes 10mg Take 1 Univer s 10 mg 5-08 tablet by ity of tablet 15:48: mouth in [place] [address] the Medical morning Branch and 1 tablet in the evening. rivaroxaban 2023-0 Yes 15mg Take 1 Univ ers 15 mg 5-08 tablet by ity of tablet 15:48: mouth in [place] [address] the Medical morning. Branch ASPIRIN 2023-0 Yes 81mg Take 81 mg Univ ers ORAL 5-08 by mouth ity of 15:48: in the [place] [address] morning. Medical tablet Branch busPIRone 2023-0 Yes 10mg Take 1 Univer s 10 mg 5-08 tablet by ity of tablet 15:48: mouth in [place] [address] the Medical morning Branch and 1 tablet in the evening. rivaroxaban 2023-0 Yes 15mg Take 1 Univ ers 15 mg 5-08 tablet by ity of tablet 15:48: mouth in [place] [address] the Medical morning. Branch ASPIRIN 2023-0 Yes 81mg Take 81 mg Univ ers ORAL 5-08 by mouth ity of 15:48: in the [place] [address] morning. Medical tablet Branch busPIRone 2023-0 Yes 10mg Take 1 Univer s 10 mg 5-08 tablet by ity of tablet 15:48: mouth in [place] [address] the Medical morning Branch and 1 tablet in the evening. rivaroxaban 2023-0 Yes 15mg Take 1 Univ ers 15 mg 5-08 tablet by ity of tablet 15:48: mouth in [place] [address] the Medical morning. Branch ASPIRIN 2023-0 Yes 81mg Take 81 mg Univ ers ORAL 5-08 by mouth ity of 15:48: in the [place] [address] morning. Medical tablet Branch busPIRone 2023-0 Yes 10mg Take 1 Univer s 10 mg 5-08 tablet by ity of tablet 15:48: mouth in [place] [address] the Medical morning Branch and 1 tablet in the evening. rivaroxaban 3-0 Yes 15mg Take 1 Univ ers 15 mg 5-08 tablet by ity of tablet 15:48: mouth in [place] [address] the Medical morning. Branch ASPIRIN 3-0 Yes 81mg Take 81 mg Univ ers ORAL 5-08 by mouth ity of 15:48: in the [place] [address] morning. Medical tablet Branch busPIRone 3-0 Yes 10mg Take 1 Univer s 10 mg 5-08 tablet by ity of tablet 15:48: mouth in [place] [address] the Medical morning Branch and 1 tablet in the evening. rivaroxaban 2022-0 Yes 15mg Take 1 Univ ers 15 mg 5-08 tablet by ity of tablet 15:48: mouth in [place] [address] the Medical morning. Branch ASPIRIN 2022-0 Yes 81mg Take 81 mg Univ ers ORAL 5-08 by mouth ity of 15:48: in the [place] [address] morning. Medical tablet Branch busPIRone 2022-0 Yes 10mg Take 1 Univer s 10 mg 5-08 tablet by ity of tablet 15:48: mouth in [place] [address] the Medical morning Branch and 1 tablet in the evening. rivaroxaban 2022-0 Yes 15mg Take 1 Univ ers 15 mg 5-08 tablet by ity of tablet 15:48: mouth in [place] [address] the Medical morning. Branch ASPIRIN 2022-0 Yes 81mg Take 81 mg Univ ers ORAL 5-08 by mouth ity of 15:48: in the [place] [address] morning. Medical tablet Branch levalbutero 2022-0 2022- No 1.25mg 1.25 mg, Univers l (XOPENEX) 01-23 Inhalation i ty of nebulizer 00:15: 23:35 , ONCE, 1 [place] solution 00 :00 dose, On Medical 1.25 mg 01/22/23 Branch at 1915, Routine ipratropium 2022-0 2022- No .5mg 0.5 mg, Un ig[facility] (ATROVENT) 01-22 Inhalation it y of 0.02 % 23:30: 23:36 , ONCE, 1 [place] nebulizer 00 :00 dose, On Medica l solution 5/6/23 Branc h 0.5 mg at 1830, MICHAEL diltiazem Yes 30mg 30 mg, Univer s (CARDIZEM) 5-05 Oral, Q6H, ity of tablet 30 23:00: First dose [place] mg 00 on Fri Medical 01/21/23 at Branch 1800, Until Discontinu ed, Routine methylpredn Yes 125mg 125 mg, Un ig[facility] isolone sod -05 Intravenou it y of succ 23:00: s, Q6H, [place] (SOLU-MEDRO 00 First dose Me dical L) on Tue Branch injection 01/21/23 at 125 mg 1800, Until Discontinu ed, Routine ipratropium 2022- No 3mL 3 mL, Univ ers -albuteroL 01-21 05-05 Inhalation it y of (DUONEB) 20:45: 19:54 , ONCE, 1 [place] as 0.5 mg-3 00 :00 dose, On Medical mg(2.5 mg Tue01/21/23 Bran ch base)/3 mL at 1545, nebulizer Routine solution 3 mL diltiazem 2022- No 15mg 15 mg, IV Un igor (CARDIZEM 01-21-05 Push, ity of IV) 19:45: 20:06 ONCE, 1 [place] injection 00 :00 dose, On Medica l 15 mg Tue01/21/23 Branch at 1445, STAT
Fa culty member approving Restricted medication : LOUIS HONG NaCl 0.9% 2022- No 1000mL at 999 Uni vers (NS) bolus 01-21 05-05 mL/hr, ity of infusion 19:45: 22:17 1,000 mL, [place] as 1,000 mL 00 :00 IV Medical Infusion, Branch ONCE, 1 dose, On Tue01/21/23 at 1445, STAT predniSONE 2022-0 2022- No [id number] 40mg Take 2 Univers 20 mg 5-04 05-09 tablets by ity of tablet 00:00: 04:59 mouth in [place] 00 :00 the Medical morning Branch for 4 days. predniSONE 2022-0 2022- No [id number] 40mg Take 2 Univers 20 mg 5-04 05-09 tablets by ity of tablet 00:00: 04:59 mouth in [place] 00 :00 the Medical morning [facility] for 4 days. predniSONE 2022-0 2022- No [id number] 40mg Take 2 Univers 20 mg 5-04 05-09 tablets by ity of tablet 00:00: 04:59 mouth in [place] 00 :00 the [facility] morning [facility] for 4 days. predniSONE 2022-0 202- No [id number] 40mg Take 2 Univers 20 mg 5-04 05-09 tablets by ity of tablet 00:00: 04:59 mouth in [place] 00 :00 the Medical morning [facility] for 4 days. predniSONE 2022-0 202- No [id number] 40mg Take 2 Univers 20 mg 5-04 05-09 tablets by ity of tablet 00:00: 04:59 mouth in [place] 00 :00 the [facility] morning [facility] for 4 days. predniSONE 2022-0 2022- No [id number] 40mg Take 2 Univers 20 mg 5-04 05-09 tablets by ity of tablet 00:00: 04:59 mouth in [place] 00 :00 the [facility] morning [employer] for 4 days. predniSONE 2022-0 2022- No [id number] 40mg Take 2 Univers 20 mg 5-04 05-09 tablets by ity of tablet 00:00: 04:59 mouth in [place] 00 :00 the [facility] morning [facility] for 4 days. enoxaparin 0 Yes 40mg 40 mg, Unive rs (LOVENOX) 01-19 Subcutaneo ity of injection 22:00: [place], DAILY, [place] 40 mg 00 First dose Medical on Tue01/19/23 at 1700, Until Discontinu ed, Routine levalbutero 0 Yes 1.25mg 1.25 mg, Univers l (XOPENEX) 01-19 Inhalation it y of nebulizer 21:00: , QID, [place] solution 00 First dose Medic al 1.25 mg (after Branch last modificati on) on Tue01/19/23 at 1600, Until Discontinu ed, Routine ipratropium 0 Yes .5mg 0.5 mg, Uni vers (ATROVENT) 01-19 Inhalation ity of 0.02 % 21:00: , QID, [place] nebulizer 00 First dose Medi lucho solution (after Branch 0.5 mg last modificati on) on Tue01/19/23 at 1600, Until Discontinu ed, Routine busPIRone 2023-0 Yes 10mg Take 1 Univer s 10 mg 5-03 tablet by ity of tablet 19:49: mouth in [place] [address] the Medical morning Branch and 1 tablet in the evening. rivaroxaban 2023-0 Yes 15mg Take 1 Univ ers 15 mg 5-03 tablet by ity of tablet 19:49: mouth in [place] [address] the Medical morning. Branch ASPIRIN 2023-0 Yes 81mg Take 81 mg Univ ers ORAL 5-03 by mouth ity of 19:49: in the [place] [address] morning. Medical tablet Branch busPIRone 2023-0 Yes 10mg Take 1 Univer s 10 mg 5-03 tablet by ity of tablet 19:49: mouth in [place] [address] the Medical morning Branch and 1 tablet in the evening. rivaroxaban 2023-0 Yes 15mg Take 1 Univ ers 15 mg 5-03 tablet by ity of tablet 19:49: mouth in [place] [address] the Medical morning. Branch ASPIRIN 2023-0 Yes 81mg Take 81 mg Univ ers ORAL 5-03 by mouth ity of 19:49: in the [place] [address] morning. Medical tablet Branch busPIRone 2023-0 Yes 10mg Take 1 Univer s 10 mg 5-03 tablet by ity of tablet 19:49: mouth in [place] [address] the Medical morning Branch and 1 tablet in the evening. rivaroxaban 2023-0 Yes 15mg Take 1 Univ ers 15 mg 5-03 tablet by ity of tablet 19:49: mouth in [place] [address] the Medical morning. Branch ASPIRIN 2023-0 Yes 81mg Take 81 mg Univ ers ORAL 5-03 by mouth ity of 19:49: in the [place] [address] morning. Medical tablet Branch busPIRone 2023-0 Yes 10mg Take 1 Univer s 10 mg 5-03 tablet by ity of tablet 19:49: mouth in [place] [address] the Medical morning Branch and 1 tablet in the evening. rivaroxaban 2023-0 Yes 15mg Take 1 Univ ers 15 mg 5-03 tablet by ity of tablet 19:49: mouth in [place] [address] the Medical morning. Branch ASPIRIN 2023-0 Yes 81mg Take 81 mg Univ ers ORAL 5-03 by mouth ity of 19:49: in the [place] [address] morning. Medical tablet Branch busPIRone 2023-0 Yes 10mg Take 1 [facility] 10 mg 5-03 tablet by ity of tablet 19:49: mouth in [place] [address] the Medical morning Branch and 1 tablet in the evening. rivaroxaban 2022-0 Yes 15mg Take 1 Univ ers 15 mg 5-03 tablet by ity of tablet 19:49: mouth in [place] [address] the Medical morning. Branch ASPIRIN 2022-0 Yes 81mg Take 81 mg Univ ers ORAL 5-03 by mouth ity of 19:49: in the [place] [address] morning. Medical tablet Branch busPIRone 2022-0 Yes 10mg Take 1 [facility] 10 mg 5-03 tablet by ity of tablet 19:49: mouth in [place] [address] the Medical morning Branch and 1 tablet in the evening. rivaroxaban 2022-0 Yes 15mg Take 1 Univ ers 15 mg 5-03 tablet by ity of tablet 19:49: mouth in [place] [address] the Medical morning. Branch ASPIRIN 2022-0 Yes 81mg Take 81 mg Univ ers ORAL 5-03 by mouth ity of 19:49: in the [place] [address] morning. Medical tablet Branch benazepriL 2022-0 2022- No 10mg Take 1 Univ ers 10 mg 5-03 05-03 tablet by ity of tablet 17:28: 00:00 mouth in [place] 05 :00 the Medical morning. Branch potassium 2022-0 2022- No 1{tbl} Take 1 Uni vers chloride 5-03 05-03 tablet by ity o f (KCL-20 17:28: 00:00 mouth in [place] ORAL) 05 :00 the Medical morning Branch and 1 tablet in the evening. aspirin 2022-0 Yes 81mg 81 mg, [facility] chewable -03 Oral, ity of tablet 81 14:00: DAILY, [place] mg 00 First dose Medical on Tue Branch 01/19/23 at 0900, Until Discontinu ed predniSONE 2022-0 2022- No 40mg 40 mg, Univ ers (DELTASONE) 5-03 05-08 Oral, ity of tablet 40 14:00: 13:59 DAILY, 5 [place] mg 00 :00 doses, Medical First dose Branch on Tue01/19/23 at 0900, Last dose on 01/23/23 at 0900, Routine busPIRone 2022-0 Yes 10mg 10 mg, Univer [facility] (BUSPAR) 5-03 Oral, BID, ity o f tablet 10 13:00: First dose [place] mg 00 on Tue Medical 01/19/23 at Branch 0800, Until Discontinu ed, Routine ipratropium 2022- No .5mg 0.5 mg, Un ig[facility] (ATROVENT) 01-19 Inhalation it y of 0.02 % 13:00: 19:13 , TID, [place] nebulizer 00 :37 First dose Medi lucho [...] of 0.02 % 09:00: 12:09 , Q4H, [place] nebulizer 00 :19 First dose Medi lucho solution on Tue Branch 0.5 mg 01/19/23 at 0400, Until Discontinu ed, Routine levoFLOXaci 2022- No 500mg 500 mg, U nivers n 01-19 Oral, Q24H ity of (LEVAQUIN) 08:15: 08:14 [...] IV Push, ity of (PF)) 08:03: Q6HPRN, [place] injection 4 53 Starting Medi lucho mg on Tue Branch 01/19/23 at 0303, Until Discontinu ed, Routine, Nausea and Vomiting (N/V) morpHINE (2 2022- No 2mg 2 mg, Slow [facility] mg/mL) 01-19 0504 IV Push, ity of injection 2 08:03: 08:02 Q4HPRN, [place] mg 43 :43 Starting Medical on Tue Branch 01/19/23 at 0303, Until [place] 01/20/23 at 0302, Routine, Pain (scale 7-10) HYDROcodone 2022- No 1{tbl} 1 tablet, Univers -acetaminop 01-19 05-05 Oral, ity of hen (NORCO 08:03: 08:02 Q6HPRN, [place] 5) 5-325 mg 39 :39 Starting Medi lucho tablet 1 on Tue Branch tablet 01/19/23 at 0303, Until Tue01/21/23 at 0302, Routine, Pain (scale 4-6) acetaminoph Yes 650mg 650 mg, [facility] en 03 Oral, ity of (TYLENOL) 08:03: Q6HPRN, [place] tablet 650 35 Starting Medic al mg on Tue Branch 01/19/23 at 0303, Until Discontinu ed, Routine, Pain (scale 1-3) levalbutero 2022- No 1.25mg 1.25 mg, Univers l (XOPENEX) 01-1903 Inhalation i ty of nebulizer 07:30: 07:08 , ONCE, 1 [place] solution 00 :00 dose, On Medical 1.25 mg 01/19/23 Branch at 0230, Routine dexamethaso 2022- No 10mg 10 mg, Uni vers ne sod phos - 05-03 Oral, ity of PF 06:58: 07:06 ONCE, 1 [place] injection 00 :00 dose, On Medica l 10 mg Tue01/19/23 Branch at 0200, 1 mL ipratropium 2022-0 2022- No .5mg 0.5 mg, [facility] (ATROVENT) 01-19-03 Inhalation it y of 0.02 % 06:45: 07:09 , ONCE, 1 [place] nebulizer 00 :00 dose, On Medica l solution Tue01/19/23 Branc h 0.5 mg at 0145, MICHAEL ipratropium 3-0 Yes [id number] .5mg Inhale 2.5 Univers 0.02 % 5-03 mL every 6 ity of nebulizer 00:00: (six) [place] solution 00 hours as Medical needed for Branch Wheezing, Shortness of Breath, Bronchospa sm or Chest tightness. guaiFENesin 2023-0 Yes [id number] 200mg Take 10 mL [facility] 100 mg/5 mL 5-03 by mouth ity of solution 00:00: every 6 [place] 00 (six) Medical hours as Branch needed for Cough. ipratropium 2023-0 Yes [id number] .5mg Inhale 2.5 [facility] 0.02 % 5-03 mL every 6 ity of nebulizer 00:00: (six) [place] solution 00 hours as Medical needed for Branch Wheezing, Shortness of Breath, Bronchospa sm or Chest tightness. guaiFENesin 2023-0 Yes [id number] 200mg Take 10 mL [facility] 100 mg/5 mL 5-03 by mouth ity of solution 00:00: every 6 [place] 00 (six) Medical hours as Branch needed for Cough. ipratropium 2023-0 Yes [id number] .5mg Inhale 2.5 Univers 0.02 % 5-03 mL every 6 ity of nebulizer 00:00: (six) [place] solution 00 hours as Medical needed for Branch Wheezing, Shortness of Breath, Bronchospa sm or Chest tightness. guaiFENesin 2023-0 Yes [id number] 200mg Take 10 mL [facility] 100 mg/5 mL 5-03 by mouth ity of solution 00:00: every 6 [place] 00 (six) Medical hours as Branch needed for Cough. ipratropium 2023-0 Yes [id number] .5mg Inhale 2.5 [facility] 0.02 % 5-03 mL every 6 ity of nebulizer 00:00: (six) [place] solution 00 hours as Medical needed for Branch Wheezing, Shortness of Breath, Bronchospa sm or Chest tightness. guaiFENesin 2023-0 Yes [id number] 200mg Take 10 mL [facility] 100 mg/5 mL 5-03 by mouth ity of solution 00:00: every 6 [place] 00 (six) Medical hours as Branch needed for Cough. ipratropium 2023-0 Yes [id number] .5mg Inhale 2.5 [facility] 0.02 % 5-03 mL every 6 ity of nebulizer 00:00: (six) [place] solution 00 hours as Medical needed for Branch Wheezing, Shortness of Breath, Bronchospa sm or Chest tightness. guaiFENesin 2023-0 Yes [id number] 200mg Take 10 mL [facility] 100 mg/5 mL 5-03 by mouth ity of solution 00:00: every 6 [place] 00 (six) Medical hours as Branch needed for Cough. ipratropium 2023-0 Yes [id number] .5mg Inhale 2.5 [facility] 0.02 % 5-03 mL every 6 ity of nebulizer 00:00: (six) [place] solution 00 hours as Medical needed for Branch Wheezing, Shortness of Breath, Bronchospa sm or Chest tightness. guaiFENesin 2023-0 Yes [id number] 200mg Take 10 mL [facility] 100 mg/5 mL 5-03 by mouth ity of solution 00:00: every 6 [place] 00 (six) Medical hours as Branch needed for Cough. ipratropium 2023-0 Yes [id number] .5mg Inhale 2.5 Univers 0.02 % 5-03 mL every 6 ity of nebulizer 00:00: (six) [place] solution 00 hours as Medical needed for Branch Wheezing, Shortness of Breath, Bronchospa sm or Chest tightness. guaiFENesin 2023-0 Yes [id number] 200mg Take 10 mL [facility] 100 mg/5 mL 5-03 by mouth ity of solution 00:00: every 6 [place] 00 (six) Medical hours as Branch needed for Cough. ipratropium 2023-0 Yes [id number] .5mg Inhale 2.5 Univers 0.02 % 5-03 mL every 6 ity of nebulizer 00:00: (six) [place] solution 00 hours as Medical needed for Branch Wheezing, Shortness of Breath, Bronchospa sm or Chest tightness. guaiFENesin 2023-0 Yes [id number] 200mg Take 10 mL [facility] 100 mg/5 mL 5-03 by mouth ity of solution 00:00: every 6 [place] 00 (six) Medical hours as Branch needed for Cough. ipratropium 2023-0 Yes [id number] .5mg Inhale 2.5 [facility] 0.02 % 5-03 mL every 6 ity of nebulizer 00:00: (six) [place] solution 00 hours as Medical needed for Branch Wheezing, Shortness of Breath, Bronchospa sm or Chest tightness. guaiFENesin 2023-0 Yes [id number] 200mg Take 10 mL [facility] 100 mg/5 mL 5-03 by mouth ity of solution 00:00: every 6 [place] 00 (six) Medical hours as Branch needed for Cough. ipratropium 2023-0 Yes [id number] .5mg Inhale 2.5 [facility] 0.02 % 5-03 mL every 6 ity of nebulizer 00:00: (six) [place] solution 00 hours as Medical needed for Branch Wheezing, Shortness of Breath, Bronchospa sm or Chest tightness. guaiFENesin 2023-0 Yes [id number] 200mg Take 10 mL [facility] 100 mg/5 mL 5-03 by mouth ity of solution 00:00: every 6 [place] 00 (six) Medical hours as Branch needed for Cough. ipratropium 2023-0 Yes [id number] .5mg Inhale 2.5 Univers 0.02 % 5-03 mL every 6 ity of nebulizer 00:00: (six) [place] solution 00 hours as Medical needed for Branch Wheezing, Shortness of Breath, Bronchospa sm or Chest tightness. guaiFENesin 2023-0 Yes [id number] 200mg Take 10 mL [facility] 100 mg/5 mL 5-03 by mouth ity of solution 00:00: every 6 [place] 00 (six) Medical hours as Branch needed for Cough. ipratropium 2023-0 Yes [id number] .5mg Inhale 2.5 [facility] 0.02 % 5-03 mL every 6 ity of nebulizer 00:00: (six) [place] solution 00 hours as Medical needed for Branch Wheezing, Shortness of Breath, Bronchospa sm or Chest tightness. guaiFENesin 2023-0 Yes [id number] 200mg Take 10 mL [facility] 100 mg/5 mL 5-03 by mouth ity of solution 00:00: every 6 [place] 00 (six) Medical hours as Branch needed for Cough. ipratropium 2023-0 Yes [id number] .5mg Inhale 2.5 [facility] 0.02 % 5-03 mL every 6 ity of nebulizer 00:00: (six) [place] solution 00 hours as Medical needed for Branch Wheezing, Shortness of Breath, Bronchospa sm or Chest tightness. guaiFENesin 2023-0 Yes [id number] 200mg Take 10 mL [facility] 100 mg/5 mL 5-03 by mouth ity of solution 00:00: every 6 [place] 00 (six) Medical hours as Branch needed for Cough. ipratropium 2023-0 Yes [id number] .5mg Inhale 2.5 [facility] 0.02 % 5-03 mL every 6 ity of nebulizer 00:00: (six) [place] solution 00 hours as Medical needed for Branch Wheezing, Shortness of Breath, Bronchospa sm or Chest tightness. guaiFENesin 2023-0 Yes [id number] 200mg Take 10 mL [facility] 100 mg/5 mL 5-03 by mouth ity of solution 00:00: every 6 [place] 00 (six) Medical hours as Branch needed for Cough. ipratropium 2023-0 Yes [id number] .5mg Inhale 2.5 [facility] 0.02 % 5-03 mL every 6 ity of nebulizer 00:00: (six) [place] solution 00 hours as Medical needed for Branch Wheezing, Shortness of Breath, Bronchospa sm or Chest tightness. guaiFENesin 2023-0 Yes [id number] 200mg Take 10 mL [facility] 100 mg/5 mL 5-03 by mouth ity of solution 00:00: every 6 [place] 00 (six) Medical hours as Branch needed for Cough. ipratropium 2023-0 Yes [id number] .5mg Inhale 2.5 [facility] 0.02 % 5-03 mL every 6 ity of nebulizer 00:00: (six) [place] solution 00 hours as Medical needed for Branch Wheezing, Shortness of Breath, Bronchospa sm or Chest tightness. guaiFENesin 2023-0 Yes [id number] 200mg Take 10 mL [facility] 100 mg/5 mL 5-03 by mouth ity of solution 00:00: every 6 [place] 00 (six) Medical hours as Branch needed for Cough. ipratropium 2023-0 Yes [id number] .5mg Inhale 2.5 Univers 0.02 % 5-03 mL every 6 ity of nebulizer 00:00: (six) [place] solution 00 hours as Medical needed for Branch Wheezing, Shortness of Breath, Bronchospa sm or Chest tightness. guaiFENesin 2023-0 Yes [id number] 200mg Take 10 mL [facility] 100 mg/5 mL 5-03 by mouth ity of solution 00:00: every 6 [place] 00 (six) Medical hours as Branch needed for Cough. ipratropium 2023-0 Yes [id number] .5mg Inhale 2.5 Univers 0.02 % 5-03 mL every 6 ity of nebulizer 00:00: (six) [place] solution 00 hours as Medical needed for Branch Wheezing, Shortness of Breath, Bronchospa sm or Chest tightness. guaiFENesin 2023-0 Yes [id number] 200mg Take 10 mL [facility] 100 mg/5 mL 5-03 by mouth ity of solution 00:00: every 6 [place] 00 (six) Medical hours as Branch needed for Cough. ipratropium 2023-0 Yes [id number] .5mg Inhale 2.5 Univers 0.02 % 5-03 mL every 6 ity of nebulizer 00:00: (six) [place] solution 00 hours as Medical needed for Branch Wheezing, Shortness of Breath, Bronchospa sm or Chest tightness. guaiFENesin 2023-0 Yes [id number] 200mg Take 10 mL [facility] 100 mg/5 mL 5-03 by mouth ity of solution 00:00: every 6 [place] 00 (six) Medical hours as Branch needed for Cough. guaiFENesin 2023-0 Yes [id number] 200mg Take 10 mL [facility] 100 mg/5 mL 5-03 by mouth ity of solution 00:00: every 6 [place] 00 (six) Medical hours as Branch needed for Cough. guaiFENesin 2023-0 Yes [id number] 200mg Take 10 mL [facility] 100 mg/5 mL 5-03 by mouth ity of solution 00:00: every 6 [place] 00 (six) Medical hours as Branch needed for Cough. guaiFENesin 2023-0 Yes [id number] 200mg Take 10 mL [facility] 100 mg/5 mL 5-03 by mouth ity of solution 00:00: every 6 [place] 00 (six) Medical hours as Branch needed for Cough. guaiFENesin 2023-0 Yes [id number] 200mg Take 10 mL [facility] 100 mg/5 mL 5-03 by mouth ity of solution 00:00: every 6 [place] 00 (six) Medical hours as Branch needed for Cough. guaiFENesin 2023-0 Yes [id number] 200mg Take 10 mL [facility] 100 mg/5 mL 5-03 by mouth ity of solution 00:00: every 6 [place] 00 (six) Medical hours as Branch needed for Cough. guaiFENesin 2023-0 Yes [id number] 200mg Take 10 mL [facility] 100 mg/5 mL 5-03 by mouth ity of solution 00:00: every 6 [place] 00 (six) Medical hours as Branch needed for Cough. guaiFENesin 2023-0 Yes [id number] 200mg Take 10 mL [facility] 100 mg/5 mL 5-03 by mouth ity of solution 00:00: every 6 [place] 00 (six) Medical hours as Branch needed for Cough. guaiFENesin 2023-0 Yes [id number] 200mg Take 10 mL [facility] 100 mg/5 mL 5-03 by mouth ity of solution 00:00: every 6 [place] 00 (six) Medical hours as Branch needed for Cough. guaiFENesin 2023-0 Yes [id number] 200mg Take 10 mL [facility] 100 mg/5 mL 5-03 by mouth ity of solution 00:00: every 6 [place] 00 (six) Medical hours as Branch needed for Cough. guaiFENesin 2023-0 Yes [id number] 200mg Take 10 mL [facility] 100 mg/5 mL 5-03 by mouth ity of solution 00:00: every 6 [place] 00 (six) Medical hours as Branch needed for Cough. ipratropium 2023-0 2023- No [id number] .5mg Inhale 2.5 Univers 0.02 % 5-03 06-01 mL every 6 ity of nebulizer 00:00: 00:00 (six) [place] solution 00 :00 hours as Medical needed for Branch Wheezing, Shortness of Breath, Bronchospa sm or Chest tightness. levoFLOXaci 2022-0 2022- No [id number] 500mg Take 1 Univers n 500 mg 01-19-08 tablet by ity o f tablet 00:00: 04:59 mouth in [place] 00 :00 [facility] for 4 days. levoFLOXaci 2022-0 202- No [id number] 500mg Take 1 Univers n 500 mg 01-19-08 tablet by ity o f tablet 00:00: 04:59 mouth in [place] 00 :00 [facility] for 4 days. levoFLOXaci 2022- 202- No [id number] 500mg Take 1 [facility] n 500 mg 01-19-08 tablet by ity o f tablet 00:00: 04:59 mouth in [place] 00 :00 [facility] for 4 days. levoFLOXaci 2022-0 2022- No [id number] 500mg Take 1 Univers n 500 mg 01-19-08 tablet by ity o f tablet 00:00: 04:59 mouth in [place] 00 :00 [facility] for 4 days. levoFLOXaci 2022-0 2022- No [id number] 500mg Take 1 Univers n 500 mg 01-19-08 tablet by ity o f tablet 00:00: 04:59 mouth in [place] 00 :00 [facility] for 4 days. levoFLOXaci 2022-0 2022- No [id number] 500mg Take 1 [facility] n 500 mg 01-1908 tablet by ity o f tablet 00:00: 04:59 mouth in [place] 00 :00 [facility] for 4 days. levalbutero 2022- No [...] of succ 12:00: 11:11 s, ONCE, 1 [place] (SOLU-MEDRO 00 :00 dose, On Medi lucho L) Tue01/17/23 Branch injection at 0700, 2 125 mg mL ipratropium 2022-0 2022- No .5mg 0.5 mg, Un ig[facility] (ATROVENT) 01-17- Inhalation it y of 0.02 % 11:45: 11:42 , ONCE, 1 [place] nebulizer 00 :00 dose, On Medica l solution Tue01/17/23 Branc h 0.5 mg at 0645, MICHAEL albuterol 2022-0 Yes [id number] 2{puff} Inhale 2 Univers 90 5-01 Puffs ity of mcg/actuati 00:00: every 4 [place] on inhaler 00 (four) Medical hours as Branch needed for Wheezing or Shortness of Breath. albuterol 2022-0 Yes [id number] 2.5mg Inhale 3 Univers 2.5 mg /3 5-01 mL every 4 ity of mL (0.083 00:00: (four) [place] %) 00 hours. May Medical nebulizer also Branch solution nebulize one extra every 6 hours. predniSONE 2022-0 Yes [id number] 50mg Take 1 [facility] 50 mg 5-01 tablet by ity of tablet 00:00: mouth in [place] 00 the Medical morning. Branch benzonatate 2022-0 Yes [id number] 200mg Take 1 [facility] 200 mg 5-01 capsule by ity of capsule 00:00: mouth 3 [place] 00 (three) Medical times Branch daily as needed for Cough. ipratropium 2022-0 Yes [id number] .5mg Inhale 2.5 Univers 0.02 % 5-01 mL every 6 ity of nebulizer 00:00: (six) [place] solution 00 hours as Medical needed for Branch Wheezing, Shortness of Breath, Bronchospa sm or Chest tightness. albuterol 2022-0 Yes [id number] 2{puff} Inhale 2 Univers 90 5-01 Puffs ity of mcg/actuati 00:00: every 4 [place] on inhaler 00 (four) Medical hours as Branch needed for Wheezing or Shortness of Breath. albuterol 2022-0 Yes [id number] 2.5mg Inhale 3 Univers 2.5 mg /3 5-01 mL every 4 ity of mL (0.083 00:00: (four) [place] %) 00 hours. May Medical nebulizer also Branch solution nebulize one extra every 6 hours. benzonatate 2022-0 Yes [id number] 200mg Take 1 [facility] 200 mg 5-01 capsule by ity of capsule 00:00: mouth 3 [place] 00 (three) Medical times Branch daily as needed for Cough. albuterol 2022-0 Yes [id number] 2{puff} Inhale 2 Univers 90 5-01 Puffs ity of mcg/actuati 00:00: every 4 [place] on inhaler 00 (four) Medical hours as Branch needed for Wheezing or Shortness of Breath. albuterol 2022-0 Yes [id number] 2.5mg Inhale 3 Univers 2.5 mg /3 5-01 mL every 4 ity of mL (0.083 00:00: (four) [place] %) 00 hours. May Medical nebulizer also Branch solution nebulize one extra every 6 hours. benzonatate 2022-0 Yes [id number] 200mg Take 1 [facility] 200 mg 5-01 capsule by ity of capsule 00:00: mouth 3 00 (three) Medical times Branch daily as needed for Cough. albuterol 2022-0 Yes [id number] 2{puff} Inhale 2 Univers 90 5-01 Puffs ity of mcg/actuati 00:00: every 4 [place] on inhaler 00 (four) Medical hours as Branch needed for Wheezing or Shortness of Breath. albuterol 2022-0 Yes [id number] 2.5mg Inhale 3 Univers 2.5 mg /3 5-01 mL every 4 ity of mL (0.083 00:00: (four) [place] %) 00 hours. May Medical nebulizer also Branch solution nebulize one extra every 6 hours. benzonatate 2022-0 Yes [id number] 200mg Take 1 [facility] 200 mg 5-01 capsule by ity of capsule 00:00: mouth 3 [place] 00 (three) Medical times Branch daily as needed for Cough. albuterol 2022-0 Yes [id number] 2{puff} Inhale 2 Univers 90 5-01 Puffs ity of mcg/actuati 00:00: every 4 [place] on inhaler 00 (four) Medical hours as Branch needed for Wheezing or Shortness of Breath. albuterol 3-0 Yes [id number] 2.5mg Inhale 3 Univers 2.5 mg /3 5-01 mL every 4 ity of mL (0.083 00:00: (four) [place] %) 00 hours. May Medical nebulizer also Branch solution nebulize one extra every 6 hours. benzonatate 3-0 Yes [id number] 200mg Take 1 [facility] 200 mg 5-01 capsule by ity of capsule 00:00: mouth 3 [place] (three) Medical times Branch daily as needed for Cough. albuterol 2022-0 Yes [id number] 2{puff} Inhale 2 Univers 90 5-01 Puffs ity of mcg/actuati 00:00: every 4 [place] on inhaler 00 (four) Medical hours as Branch needed for Wheezing or Shortness of Breath. albuterol 2022-0 Yes [id number] 2.5mg Inhale 3 Univers 2.5 mg /3 5-01 mL every 4 ity of mL (0.083 00:00: (four) [place] %) 00 hours. May Medical nebulizer also Branch solution nebulize one extra every 6 hours. benzonatate 2022-0 Yes [id number] 200mg Take 1 [facility] 200 mg 5-01 capsule by ity of capsule 00:00: mouth 3 (three) Medical times Branch daily as needed for Cough. albuterol 3-0 Yes [id number] 2{puff} Inhale 2 Univers 90 5-01 Puffs ity of mcg/actuati 00:00: every 4 [place] on inhaler 00 (four) Medical hours as Branch needed for Wheezing or Shortness of Breath. albuterol 3-0 Yes [id number] 2.5mg Inhale 3 Univers 2.5 mg /3 5-01 mL every 4 ity of mL (0.083 00:00: (four) [place] %) 00 hours. May Medical nebulizer also Branch solution nebulize one extra every 6 hours. benzonatate 3-0 Yes [id number] 200mg Take 1 [facility] 200 mg 5-01 capsule by ity of capsule 00:00: mouth 3 (three) Medical times Branch daily as needed for Cough. albuterol 2023-0 Yes [id number] 2{puff} Inhale 2 Univers 90 5-01 Puffs ity of mcg/actuati 00:00: every 4 [place] on inhaler 00 (four) Medical hours as Branch needed for Wheezing or Shortness of Breath. albuterol 2022-0 Yes [id number] 2.5mg Inhale 3 Univers 2.5 mg /3 5-01 mL every 4 ity of mL (0.083 00:00: (four) [place] %) 00 hours. May Medical nebulizer also Branch solution nebulize one extra every 6 hours. benzonatate 2022-0 Yes [id number] 200mg Take 1 [facility] 200 mg 5-01 capsule by ity of capsule 00:00: mouth 3 [place] 00 (three) Medical times Branch daily as needed for Cough. albuterol 2022-0 Yes [id number] 2{puff} Inhale 2 Univers 90 5-01 Puffs ity of mcg/actuati 00:00: every 4 [place] on inhaler 00 (four) Medical hours as Branch needed for Wheezing or Shortness of Breath. albuterol 2022-0 Yes [id number] 2.5mg Inhale 3 Univers 2.5 mg /3 5-01 mL every 4 ity of mL (0.083 00:00: (four) [place] %) 00 hours. May Medical nebulizer also Branch solution nebulize one extra every 6 hours. benzonatate 2022-0 Yes [id number] 200mg Take 1 [facility] 200 mg 5-01 capsule by ity of capsule 00:00: mouth 3 [place] 00 (three) Medical times Branch daily as needed for Cough. albuterol 2022-0 Yes [id number] 2{puff} Inhale 2 [facility] 90 5-01 Puffs ity of mcg/actuati 00:00: every 4 [place] on inhaler 00 (four) Medical hours as Branch needed for Wheezing or Shortness of Breath. albuterol 2022-0 Yes [id number] 2.5mg Inhale 3 Univers 2.5 mg /3 5-01 mL every 4 ity of mL (0.083 00:00: (four) [place] %) 00 hours. May Medical nebulizer also Branch solution nebulize one extra every 6 hours. benzonatate 2022-0 Yes [id number] 200mg Take 1 [facility] 200 mg 5-01 capsule by ity of capsule 00:00: mouth 3 (three) Medical times Branch daily as needed for Cough. albuterol 2022-0 Yes [id number] 2{puff} Inhale 2 Univers 90 5-01 Puffs ity of mcg/actuati 00:00: every 4 [place] on inhaler 00 (four) Medical hours as Branch needed for Wheezing or Shortness of Breath. albuterol 3-0 Yes [id number] 2.5mg Inhale 3 Univers 2.5 mg /3 5-01 mL every 4 ity of mL (0.083 00:00: (four) [place] %) 00 hours. May Medical nebulizer also Branch solution nebulize one extra every 6 hours. benzonatate 2022-0 Yes [id number] 200mg Take 1 [facility] 200 mg 5-01 capsule by ity of capsule 00:00: mouth 3 (three) Medical times Branch daily as needed for Cough. albuterol 2022-0 Yes [id number] 2{puff} Inhale 2 Univers 90 5-01 Puffs ity of mcg/actuati 00:00: every 4 [place] on inhaler 00 (four) Medical hours as Branch needed for Wheezing or Shortness of Breath. albuterol 3-0 Yes [id number] 2.5mg Inhale 3 Univers 2.5 mg /3 5-01 mL every 4 ity of mL (0.083 00:00: (four) [place] %) 00 hours. May Medical nebulizer also Branch solution nebulize one extra every 6 hours. benzonatate 3-0 Yes [id number] 200mg Take 1 [facility] 200 mg 5-01 capsule by ity of capsule 00:00: mouth 3 (three) Medical times Branch daily as needed for Cough. albuterol 2023-0 Yes [id number] 2{puff} Inhale 2 [facility] 90 5-01 Puffs ity of mcg/actuati 00:00: every 4 [place] as on inhaler 00 (four) Medical hours as Branch needed for Wheezing or Shortness of Breath. albuterol 2023-0 Yes [id number] 2.5mg Inhale 3 Univers 2.5 mg /3 5-01 mL every 4 ity of mL (0.083 00:00: (four) [place] %) 00 hours. May Medical nebulizer also Branch solution nebulize one extra every 6 hours. benzonatate 2022-0 Yes [id number] 200mg Take 1 [facility] 200 mg 5-01 capsule by ity of capsule 00:00: mouth 3 [place] (three) Medical times Branch daily as needed for Cough. albuterol 2022-0 Yes [id number] 2{puff} Inhale 2 [facility] 90 5-01 Puffs ity of mcg/actuati 00:00: every 4 [place] as on inhaler 00 (four) Medical hours as Branch needed for Wheezing or Shortness of Breath. albuterol 2022-0 Yes [id number] 2.5mg Inhale 3 Univers 2.5 mg /3 5-01 mL every 4 ity of mL (0.083 00:00: (four) [place] %) 00 hours. May Medical nebulizer also Branch solution nebulize one extra every 6 hours. benzonatate 2022-0 Yes [id number] 200mg Take 1 [facility] 200 mg 5-01 capsule by ity of capsule 00:00: mouth 3 (three) Medical times Branch daily as needed for Cough. albuterol 2022-0 Yes [id number] 2{puff} Inhale 2 [facility] 90 5-01 Puffs ity of mcg/actuati 00:00: every 4 [place] as on inhaler 00 (four) Medical hours as Branch needed for Wheezing or Shortness of Breath. albuterol 2022-0 Yes [id number] 2.5mg Inhale 3 Univers 2.5 mg /3 5-01 mL every 4 ity of mL (0.083 00:00: (four) [place] %) 00 hours. May Medical nebulizer also Branch solution nebulize one extra every 6 hours. benzonatate 2022-0 Yes [id number] 200mg Take 1 [facility] 200 mg 5-01 capsule by ity of capsule 00:00: mouth 3 (three) Medical times Branch daily as needed for Cough. albuterol 2022-0 Yes [id number] 2{puff} Inhale 2 [facility] 90 5-01 Puffs ity of mcg/actuati 00:00: every 4 [place] as on inhaler 00 (four) Medical hours as Branch needed for Wheezing or Shortness of Breath. albuterol 2022-0 Yes [id number] 2.5mg Inhale 3 [facility] 2.5 mg /3 5-01 mL every 4 ity of mL (0.083 00:00: (four) [place] %) 00 hours. May Medical nebulizer also Branch solution nebulize one extra every 6 hours. benzonatate 3-0 Yes [id number] 200mg Take 1 [facility] 200 mg 5-01 capsule by ity of capsule 00:00: mouth 3 (three) Medical times Branch daily as needed for Cough. albuterol 2022-0 Yes [id number] 2{puff} Inhale 2 [facility] 90 5-01 Puffs ity of mcg/actuati 00:00: every 4 [place] as on inhaler 00 (four) Medical hours as Branch needed for Wheezing or Shortness of Breath. albuterol 3-0 Yes [id number] 2.5mg Inhale 3 [facility] 2.5 mg /3 5-01 mL every 4 ity of mL (0.083 00:00: (four) [place] %) 00 hours. May Medical nebulizer also Branch solution nebulize one extra every 6 hours. benzonatate 3-0 Yes [id number] 200mg Take 1 [facility] 200 mg 5-01 capsule by ity of capsule 00:00: mouth 3 (three) Medical times Branch daily as needed for Cough. albuterol 3-0 Yes [id number] 2.5mg Inhale 3 [facility] 2.5 mg /3 5-01 mL every 4 ity of mL (0.083 00:00: (four) [place] %) 00 hours. May Medical nebulizer also Branch solution nebulize one extra every 6 hours. benzonatate 3-0 Yes [id number] 200mg Take 1 [facility] 200 mg 5-01 capsule by ity of capsule 00:00: mouth 3 (three) Medical times Branch daily as needed for Cough. albuterol 2023-0 Yes [id number] 2.5mg Inhale 3 [facility] 2.5 mg /3 5-01 mL every 4 ity of mL (0.083 00:00: (four) [place] %) 00 hours. May Medical nebulizer also Branch solution nebulize one extra every 6 hours. benzonatate 2023-0 Yes [id number] 200mg Take 1 [facility] 200 mg 5-01 capsule by ity of capsule 00:00: mouth 3 (three) Medical times Branch daily as needed for Cough. albuterol 3-0 Yes [id number] 2.5mg Inhale 3 [facility] 2.5 mg /3 5-01 mL every 4 ity of mL (0.083 00:00: (four) [place] %) 00 hours. May Medical nebulizer also Branch solution nebulize one extra every 6 hours. benzonatate 3-0 Yes [id number] 200mg Take 1 [facility] 200 mg 5-01 capsule by ity of capsule 00:00: mouth 3 [place] (three) Medical times Branch daily as needed for Cough. albuterol 2022-0 Yes [id number] 2.5mg Inhale 3 [facility] 2.5 mg /3 5-01 mL every 4 ity of mL (0.083 00:00: (four) [place] %) 00 hours. May Medical nebulizer also Branch solution nebulize one extra every 6 hours. albuterol 2022-0 Yes [id number] 2.5mg Inhale 3 [facility] 2.5 mg /3 5-01 mL every 4 ity of mL (0.083 00:00: (four) [place] %) 00 hours. May Medical nebulizer also Branch solution nebulize one extra every 6 hours. albuterol 2022-0 Yes [id number] 2.5mg Inhale 3 [facility] 2.5 mg /3 5-01 mL every 4 ity of mL (0.083 00:00: (four) [place] %) 00 hours. May Medical nebulizer also Branch solution nebulize one extra every 6 hours. albuterol 3-0 Yes [id number] 2.5mg Inhale 3 [facility] 2.5 mg /3 5-01 mL every 4 ity of mL (0.083 00:00: (four) [place] %) 00 hours. May Medical nebulizer also Branch solution nebulize one extra every 6 hours. albuterol 3-0 Yes [id number] 2.5mg Inhale 3 [facility] 2.5 mg /3 5-01 mL every 4 ity of mL (0.083 00:00: (four) [place] %) 00 hours. May Medical nebulizer also Branch solution nebulize one extra every 6 hours. albuterol 3-0 Yes [id number] 2.5mg Inhale 3 [facility] 2.5 mg /3 5-01 mL every 4 ity of mL (0.083 00:00: (four) [place] %) 00 hours. May Medical nebulizer also Branch solution nebulize one extra every 6 hours. albuterol 2022- No [id number] 2.5mg Inhale 3 [facility] 2.5 mg /3 5-01 06-15 mL every 4 ity of mL (0.083 00:00: 00:00 (four) [place] %) 00 :00 hours. May Medical nebulizer also Branch solution nebulize one extra every 6 hours. benzonatate 2022- No [id number] 200mg Take 1 [facility] 200 mg 01-17- capsule by ity of capsule 00:00: 00:00 mouth 3 [place] 00 :00 (three) Medical times Branch daily as needed for Cough. albuterol 2022- No [id number] 2{puff} Inhale 2 [facility] 90 01-17 05-19 Puffs ity of mcg/actuati 00:00: 00:00 every 4 [place] on inhaler 00 :00 (four) Medical hours as Branch needed for Wheezing or Shortness of Breath. predniSONE 2022- No [id number] 50mg Take 1 [facility] 50 mg 01-17 05-03 tablet by ity of tablet 00:00: 00:00 mouth in [place] 00 :00 the Medical morning. Branch ipratropium 2022- No [id number] .5mg Inhale 2.5 [facility] 0.02 % 01-17 [...] by ity of tablet 14:36: mouth in [place] 57 the Medical morning Branch and 1 tablet in the evening. rivaroxaban 2023-0 Yes 15mg Take 1 Univ ers 15 mg 4-21 tablet by ity of tablet 14:36: mouth in [place] [address] the Medical morning. Branch ASPIRIN 2023-0 Yes 81mg Take 81 mg Univ ers ORAL 4-21 by mouth ity of 14:36: in the [place] [address] morning. Medical tablet Branch benazepriL 2023-0 Yes 10mg Take 1 Unive rs 10 mg 4-21 tablet by ity of tablet 14:36: mouth in [place] [address] the Medical morning. Branch busPIRone 2023-0 Yes 10mg Take 1 Univer s 10 mg 4-21 tablet by ity of tablet 14:36: mouth in [place] [address] the Medical morning Branch and 1 tablet in the evening. rivaroxaban 2023-0 Yes 15mg Take 1 Univ ers 15 mg 4-21 tablet by ity of tablet 14:36: mouth in [place] [address] the Medical morning. Branch ASPIRIN 2023-0 Yes 81mg Take 81 mg Univ ers ORAL 4-21 by mouth ity of 14:36: in the [place] [address] morning. Medical tablet Branch benazepriL 2023-0 Yes 10mg Take 1 Un[facility] rs 10 mg 4-21 tablet by ity of tablet 14:36: mouth in [place] [address] the Medical morning. Branch busPIRone 2023-0 Yes 10mg Take 1 [facility]iver s 10 mg 4-21 tablet by ity of tablet 14:36: mouth in [place] [address] the Medical morning Branch and 1 tablet in the evening. rivaroxaban 2023-0 Yes 15mg Take 1 Univ ers 15 mg 4-21 tablet by ity of tablet 14:36: mouth in [place] [address] the Medical morning. Branch ASPIRIN 2023-0 Yes 81mg Take 81 mg Univ ers ORAL 4-21 by mouth ity of 14:36: in the [place] [address] morning. Medical tablet Branch benazepriL 2023-0 Yes 10mg Take 1 Unive rs 10 mg 4-21 tablet by ity of tablet 14:36: mouth in [place] [address] the Medical morning. Branch busPIRone 2023-0 Yes 10mg Take 1 Univer s 10 mg 4-21 tablet by ity of tablet 14:36: mouth in [place] [address] the Medical morning Branch and 1 tablet in the evening. rivaroxaban 2023-0 Yes 15mg Take 1 Univ ers 15 mg 4-21 tablet by ity of tablet 14:36: mouth in [place] [address] the Medical morning. Branch ASPIRIN 2023-0 Yes 81mg Take 81 mg Univ ers ORAL 4-21 by mouth ity of 14:36: in the [place] [address] morning. Medical tablet Branch benazepriL 2023-0 Yes 10mg Take 1 Unive rs 10 mg 4-21 tablet by ity of tablet 14:36: mouth in [place] [address] the Medical morning. Branch donepeziL 5 3-0 Yes 5mg Take 1 Univ ers mg tablet 4-21 tablet by ity o f 00:00: mouth in [place] 00 the Medical morning. Branch memantine 5 2023-0 Yes 5mg Take 1 Univ ers mg tablet 4-21 tablet by ity o f 00:00: mouth in [place] 00 the Medical morning. Branch donepeziL 5 2023-0 Yes 5mg Take 1 Univ ers mg tablet 4-21 tablet by ity o f 00:00: mouth in [place] 00 the Medical morning. Branch memantine 5 2023-0 Yes 5mg Take 1 Univ ers mg tablet 4-21 tablet by ity o f 00:00: mouth in [place] 00 the Medical morning. Branch donepeziL 5 2023-0 Yes 5mg Take 1 Univ ers mg tablet 4-21 tablet by ity o f 00:00: mouth in [place] 00 the Medical morning. Branch memantine 5 2023-0 Yes 5mg Take 1 Univ ers mg tablet 4-21 tablet by ity o f 00:00: mouth in [place] 00 the Medical morning. Branch donepeziL 5 2023-0 Yes 5mg Take 1 Univ ers mg tablet 4-21 tablet by ity o f 00:00: mouth in [place] 00 the Medical morning. Branch memantine 5 2023-0 Yes 5mg Take 1 Univ ers mg tablet 4-21 tablet by ity o f 00:00: mouth in [place] 00 the Medical morning. Branch donepeziL 5 2023-0 Yes 5mg Take 1 Univ ers mg tablet 4-21 tablet by ity o f 00:00: mouth in [place] 00 the Medical morning. Branch memantine 5 2023-0 Yes 5mg Take 1 Univ ers mg tablet 4-21 tablet by ity o f 00:00: mouth in [place] 00 the Medical morning. Branch donepeziL 5 2023-0 Yes 5mg Take 1 Univ ers mg tablet 4-21 tablet by ity o f 00:00: mouth in [place] 00 the Medical morning. Branch memantine 5 2023-0 Yes 5mg Take 1 Univ ers mg tablet 4-21 tablet by ity o f 00:00: mouth in [place] the Medical morning. Branch donepeziL 5 2023-0 Yes 5mg Take 1 Univ ers mg tablet 4-21 tablet by ity o f 00:00: mouth in [place] 00 the Medical morning. Branch memantine 5 2023-0 Yes 5mg Take 1 [facility] ers mg tablet 4-21 tablet by ity o f 00:00: mouth in [place] the Medical morning. Branch donepeziL 5 2023-0 Yes 5mg Take 1 Univ ers mg tablet 4-21 tablet by ity o f 00:00: mouth in [place] 00 the Medical morning. Branch memantine 5 2023-0 Yes 5mg Take 1 Univ ers mg tablet 4-21 tablet by ity o f 00:00: mouth in [place] 00 the Medical morning. Branch donepeziL 5 2023-0 Yes 5mg Take 1 Univ ers mg tablet 4-21 tablet by ity o f 00:00: mouth in [place] 00 the Medical morning. Branch memantine 5 2023-0 Yes 5mg Take 1 Univ ers mg tablet 4-21 tablet by ity o f 00:00: mouth in [place] 00 the Medical morning. Branch donepeziL 5 2023-0 Yes 5mg Take 1 Univ ers mg tablet 4-21 tablet by ity o f 00:00: mouth in [place] 00 the Medical morning. Branch memantine 5 2023-0 Yes 5mg Take 1 Univ ers mg tablet 4-21 tablet by ity o f 00:00: mouth in [place] 00 the Medical morning. Branch donepeziL 5 2023-0 Yes 5mg Take 1 Univ ers mg tablet 4-21 tablet by ity o f 00:00: mouth in [place] 00 the Medical morning. Branch memantine 5 2023-0 Yes 5mg Take 1 Univ ers mg tablet 4-21 tablet by ity o f 00:00: mouth in [place] 00 the Medical morning. Branch donepeziL 5 2023-0 Yes 5mg Take 1 Univ ers mg tablet 4-21 tablet by ity o f 00:00: mouth in [place] 00 the Medical morning. Branch memantine 5 2023-0 Yes 5mg Take 1 Univ ers mg tablet 4-21 tablet by ity o f 00:00: mouth in [place] 00 the Medical morning. Branch donepeziL 5 2023-0 Yes 5mg Take 1 [facility] ers mg tablet 4-21 tablet by ity o f 00:00: mouth in [place] the Medical morning. Branch memantine 5 2023-0 Yes 5mg Take 1 Univ ers mg tablet 4-21 tablet by ity o f 00:00: mouth in [place] the Medical morning. Branch donepeziL 5 2023-0 Yes 5mg Take 1 [facility] ers mg tablet 4-21 tablet by ity o f 00:00: mouth in [place] the Medical morning. Branch memantine 5 2023-0 Yes 5mg Take 1 [facility] ers mg tablet 4-21 tablet by ity o f 00:00: mouth in [place] the Medical morning. Branch donepeziL 5 2023-0 Yes 5mg Take 1 [facility] ers mg tablet 4-21 tablet by ity o f 00:00: mouth in [place] the Medical morning. Branch memantine 5 2023-0 Yes 5mg Take 1 Univ ers mg tablet 4-21 tablet by ity o f 00:00: mouth in [place] 00 the Medical morning. Branch donepeziL 5 2023-0 Yes 5mg Take 1 [facility] ers mg tablet 4-21 tablet by ity o f 00:00: mouth in [place] 00 the Medical morning. Branch memantine 5 2023-0 Yes 5mg Take 1 Univ ers mg tablet 4-21 tablet by ity o f 00:00: mouth in [place] 00 the Medical morning. Branch donepeziL 5 2023-0 Yes 5mg Take 1 [facility] ers mg tablet 4-21 tablet by ity o f 00:00: mouth in [place] 00 the Medical morning. Branch memantine 5 2023-0 Yes 5mg Take 1 [facility] ers mg tablet 4-21 tablet by ity o f 00:00: mouth in [place] 00 the Medical morning. Branch donepeziL 5 2023-0 Yes 5mg Take 1 [facility] ers mg tablet 4-21 tablet by ity o f 00:00: mouth in [place] 00 the Medical morning. Branch memantine 5 2023-0 Yes 5mg Take 1 Univ ers mg tablet 4-21 tablet by ity o f 00:00: mouth in [place] the Medical morning. Branch donepeziL 5 2023-0 Yes 5mg Take 1 [facility] ers mg tablet 4-21 tablet by ity o f 00:00: mouth in [place] the Medical morning. Branch memantine 5 2023-0 Yes 5mg Take 1 [facility] ers mg tablet 4-21 tablet by ity o f 00:00: mouth in [place] the Medical morning. Branch donepeziL 5 2023-0 Yes 5mg Take 1 [facility] ers mg tablet 4-21 tablet by ity o f 00:00: mouth in [place] the Medical morning. Branch memantine 5 2023-0 Yes 5mg Take 1 [facility] ers mg tablet 4-21 tablet by ity o f 00:00: mouth in [place] the Medical morning. Branch donepeziL 5 2023-0 Yes 5mg Take 1 [facility] ers mg tablet 4-21 tablet by ity o f 00:00: mouth in [place] the Medical morning. Branch memantine 5 2023-0 Yes 5mg Take 1 Univ ers mg tablet 4-21 tablet by ity o f 00:00: mouth in [place] 00 the Medical morning. Branch donepeziL 5 2023-0 Yes 5mg Take 1 Univ ers mg tablet 4-21 tablet by ity o f 00:00: mouth in [place] 00 the Medical morning. Branch memantine 5 2023-0 Yes 5mg Take 1 Univ ers mg tablet 4-21 tablet by ity o f 00:00: mouth in [place] 00 the Medical morning. Branch donepeziL 5 2023-0 Yes 5mg Take 1 Univ ers mg tablet 4-21 tablet by ity o f 00:00: mouth in [place] 00 the Medical morning. Branch memantine 5 2023-0 Yes 5mg Take 1 Univ ers mg tablet 4-21 tablet by ity o f 00:00: mouth in [place] 00 the Medical morning. Branch donepeziL 5 2023-0 Yes 5mg Take 1 Univ ers mg tablet 4-21 tablet by ity o f 00:00: mouth in [place] 00 the Medical morning. Branch memantine 5 2023-0 Yes 5mg Take 1 Univ ers mg tablet 4-21 tablet by ity o f 00:00: mouth in [place] 00 the Medical morning. Branch donepeziL 5 2023-0 Yes 5mg Take 1 Univ ers mg tablet 4-21 tablet by ity o f 00:00: mouth in [place] 00 the Medical morning. Branch memantine 5 2023-0 Yes 5mg Take 1 Univ ers mg tablet 4-21 tablet by ity o f 00:00: mouth in [place] 00 the Medical morning. Branch donepeziL 5 2023-0 Yes 5mg Take 1 Univ ers mg tablet 4-21 tablet by ity o f 00:00: mouth in [place] 00 the Medical morning. Branch memantine 5 2023-0 Yes 5mg Take 1 Univ ers mg tablet 4-21 tablet by ity o f 00:00: mouth in [place] 00 the Medical morning. Branch donepeziL 5 2023-0 Yes 5mg Take 1 Univ ers mg tablet 4-21 tablet by ity o f 00:00: mouth in [place] 00 the Medical morning. Branch memantine 5 2023-0 Yes 5mg Take 1 Univ ers mg tablet 4-21 tablet by ity o f 00:00: mouth in [place] 00 the Medical morning. Branch donepeziL 5 2023-0 2023- No 5mg Take 1 Uni vers mg tablet 01-07 tablet by ity of 00:00: 00:00 mouth in [place] 00 :00 the Medical morning. Branch memantine 5 2023-0 2023- No 5mg Take 1 Uni vers mg tablet 01-07 tablet by ity of 00:00: 00:00 mouth in [place] 00 :00 the Medical morning. Branch donepeziL 5 2023-0 2023- No 5mg Take 1 Uni vers mg tablet 01-07 tablet by ity of 00:00: 00:00 mouth in [place] 00 :00 the Medical morning. Branch memantine 5 2023-0 2023- No 5mg Take 1 Uni vers mg tablet 4-21 06-13 tablet by ity of 00:00: 00:00 mouth in [place] 00 :00 the Medical morning. Branch tamsulosin 2023-0 2023- No [id number] .4mg Take 1 [facility] 0.4 mg 24 3-13 01- capsule by ity of hr capsule 00:00: 04:59 mouth in [place] 00 :00 the Medical morning Branch for 30 days. tamsulosin 2023-0 2023- No [id number] .4mg Take 1 [facility] 0.4 mg 24 -13 01- capsule by ity of hr capsule 00:00: 04:59 mouth in [place] 00 :00 the Medical morning Branch for 30 days. tamsulosin 2023-0 2023- No [id number] .4mg Take 1 [facility] 0.4 mg 24 -13 01- capsule by ity of hr capsule 00:00: 04:59 mouth in [place] 00 :00 the [facility] morning Branch for 30 days. tamsulosin 2023-0 2023- No [id number] .4mg Take 1 [facility] 0.4 mg 24 -13 01- capsule by ity of hr capsule 00:00: 04:59 mouth in [place] 00 :00 the Medical morning Branch for 30 days. tamsulosin 2023-0 2023- No [id number] .4mg Take 1 [facility] 0.4 mg 24 -13 01- capsule by ity of hr capsule 00:00: 04:59 mouth in [place] 00 :00 the [facility] morning Branch for 30 days. tamsulosin 2023-0 3- No [id number] .4mg Take 1 [facility] 0.4 mg 24 12-13- capsule by ity of hr capsule 00:00: 04:59 mouth in [place] 00 :00 the [facility] morning Branch for 30 days. donepeziL 2023-0 Yes 5mg 5 mg, Univers (ARICEPT) 3-26 Oral, ity of tablet 5 mg 17:30: [place], [place] First dose Medical [facility] 12/12/22 at 1230, Until Discontinu ed, Routine memantine 2023-0 Yes 5mg 5 mg, Univers (NAMENDA) 3-26 Oral, ity of tablet 5 mg 17:30: [place], [place] First dose Medical on [facility] 12/12/22 at 1230, Until Discontinu ed, Routine
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 rivaroxaban 2023-0 Yes 15mg Take 1 Univ ers (XARELTO) 3-26 tablet by ity o f 15 mg 14:37: mouth in [place] tablet 13 the Medical morning. Branch aspirin 81 3-0 Yes 81mg Take 81 mg U nivers mg chewable 3-26 by mouth ity of tablet 14:37: in the [place] [address] morning. Medical tablet Branch busPIRone 2023-0 Yes 10mg Take 1 Univer s 10 mg 3-26 tablet by ity of tablet 14:37: mouth in [place] [address] the Medical morning Branch and 1 tablet in the evening. rivaroxaban 2023-0 Yes 15mg Take 1 Univ ers (XARELTO) 3-26 tablet by ity o f 15 mg 14:37: mouth in [place] tablet 13 the Medical morning. Branch busPIRone 2023-0 Yes 10mg Take 1 Univer s 10 mg 3-26 tablet by ity of tablet 14:37: mouth in [place] [address] the Medical morning Branch and 1 tablet in the evening. rivaroxaban 2023-0 Yes 15mg Take 1 Univ ers (XARELTO) 3-26 tablet by ity o f 15 mg 14:37: mouth in [place] tablet 13 the Medical morning. Branch aspirin 81 3-0 Yes 81mg Take 81 mg U nivers mg chewable 3-26 by mouth ity of tablet 14:37: in the [place] [address] morning. Medical tablet Branch busPIRone 2023-0 Yes 10mg Take 1 Univer s 10 mg 3-26 tablet by ity of tablet 14:37: mouth in [place] [address] the Medical morning Branch and 1 tablet in the evening. rivaroxaban 2023-0 Yes 15mg Take 1 Univ ers (XARELTO) 3-26 tablet by ity o f 15 mg 14:37: mouth in [place] tablet 13 the Medical morning. Branch aspirin 81 2023-0 Yes 81mg Take 81 mg U nivers mg chewable 3-26 by mouth ity of tablet 14:37: in the [place] 13 morning. Medical tablet Branch tamsulosin Yes .4mg 0.4 mg, Univ ers (FLOMAX) 12-12 Oral, ity of capsule 0.4 14:00: DAILY, [facility] s mg 00 First dose Medical on [place] 12/12/22 at 0900, Until Discontinu ed, Routine aspirin EC 0 Yes 81mg 81 mg, Unive rs tablet 81 12-12 Oral, ity of mg 14:00: DAILY, [place] 00 First dose Medical on [place] 12/12/22 at 0900, Until Discontinu ed, Routine methylpredn Yes 40mg 40 mg, Univ ers isolone sod 12-12 Intravenou it y of succ 14:00: s, DAILY, [place] (SOLU-MEDRO 00 First dose Me dical L) (after Branch injection last 40 mg modificati on) on [place] 12/12/22 at 0900, Until Discontinu ed, Routine carvediloL 2022-0 2022- No 25mg Take 1 Univ ers 25 mg 12-12 tablet by ity of tablet 11:47: 00:00 mouth in [place] 13 :00 the Medical morning Branch and 1 tablet in the evening. Take with meals. busPIRone 2022-0 2022- No 30mg Take 1 Unive rs 30 mg 12-12 tablet by ity of tablet 11:47: 00:00 mouth in [place] 13 :00 the Medical morning Branch and 1 tablet in the evening. KCL 20 mEq 2022-0 2022- No Take by Uni vers tablet 12-12 mouth 2 ity of 11:47: 00:00 (two) [place] 13 :00 times Medical daily. Branch benazepriL 2022-0 2022- No 10mg Take 1 Univ ers 10 mg 12-12 tablet by ity of tablet 11:47: 00:00 mouth in [place] 13 :00 the Medical morning. Branch hydroCHLORO 2022-0 2022- No 25mg Take 1 Uni vers thiazide 25 12-12 tablet by it y of mg tablet 11:47: 00:00 mouth in [facility] [place] as 13 :00 the Medical morning. Branch melatonin 2022-0 Yes 6mg 6 mg, Univers (MELATIN) 12-12 Oral, QHS, ity of tablet 6 mg 02:00: First dose [place] 00 on [facility] Medical 12/11/22 at Branch 2100, Until Discontinu ed, Routine atorvastati Yes 40mg 40 mg, Univ ers n (LIPITOR) - Oral, QHS, it y of tablet 40 02:00: First dose [place] mg 00 on [facility] Medical 12/11/22 at Branch 2100, Until Discontinu ed, Routine carvediloL 2022- No [id number] 3.125mg Take 1 Univers 3.125 mg 12-12- tablet by ity o f tablet 00:00: 04:59 mouth in [place] 00 :00 the [facility] morning Branch and 1 tablet in the evening. Take with meals. Do all this for 30 days. atorvastati 2022- No [id number] 40mg Take 1 Univers n 40 mg 12-12 tablet by ity of tablet 00:00: 04:59 mouth at [place] 00 :[facility] Branch days. donepeziL 5 2022- No [id number] 5mg Take 1 Univers mg tablet 12-12 tablet by ity of 00:00: 04:59 mouth in [place] 00 :00 the [facility] for 30 days. memantine 5 2022- No [id number] 5mg Take 1 Univers mg tablet 12-12- tablet by ity of 00:00: 04:59 mouth in [place] 00 :00 the [facility] for 30 days. carvediloL 2022- No [id number] 3.125mg Take 1 Univers 3.125 mg 12-12 tablet by ity o f tablet 00:00: 04:59 mouth in [place] 00 :00 the [facility] morning Branch and 1 tablet in the evening. Take with meals. Do all this for 30 days. atorvastati 2022- No [id number] 40mg Take 1 Univers n 40 mg 12-12- tablet by ity of tablet 00:00: 04:59 mouth at [place] 00 :00 [facility] Medical for 30 Branch days. donepeziL 5 2022- No [id number] 5mg Take 1 [facility] mg tablet 12-12 tablet by ity of 00:00: 04:59 mouth in [place] 00 :00 the [facility] for 30 days. memantine 5 2022- No [id number] 5mg Take 1 Univers mg tablet -12 01- tablet by ity of 00:00: 04:59 mouth in [place] 00 :00 the [facility] for 30 days. carvediloL 2022- No [id number] 3.125mg Take 1 [facility] 3.125 mg 3-12 01- tablet by ity o f tablet 00:00: 04:59 mouth in [place] 00 :00 the [facility] and 1 tablet in the evening. Take with meals. Do all this for 30 days. atorvastati 2022- No [id number] 40mg Take 1 Univers n 40 mg -12 01- tablet by ity of tablet 00:: 04:59 mouth [facility] [place] [facility] donepeziL 5 2022- No [id number] 5mg Take 1 Univers mg tablet 12-12- tablet by ity of 00:00: 04:59 mouth in [place] 00 :00 [facility] for 30 days. memantine 5 2022- No [id number] 5mg Take 1 Univers mg tablet -12 01- tablet by ity of 00:: 04:59 mouth in [place] 00 :00 [facility] for 30 days. carvediloL 2022- No [id number] 3.125mg Take 1 Univers 3.125 mg -12 01- tablet by ity o f tablet 00:: 04:59 mouth in [place] 00 :00 the [facility] and 1 tablet in the evening. Take with meals. Do all this for 30 days. atorvastati 2022- No [id number] 40mg Take 1 Univers n 40 mg 3-12 01- tablet by ity of tablet 00:: 04:59 mouth at [place] 00 :00 [facility] for 30 Branch days. carvediloL 2022- No [id number] 3.125mg Take 1 Univers 3.125 mg 3-12 01-26 tablet by ity o f tablet 00:00: 04:59 mouth in [place] 00 :00 the [facility] and 1 tablet in the evening. Take with meals. Do all this for 30 days. atorvastati 2022-2022- No [id number] 40mg Take 1 Univers n 40 mg 12-12- tablet by ity of tablet 00:00: 04:59 mouth at [place] 00 :00 [facility] for 30 Branch days. carvediloL 2022-2022- No [id number] 3.125mg Take 1 Univers 3.125 mg 12-12- tablet by ity o f tablet 00:00: 04:59 mouth in [place] 00 :00 [facility] and 1 tablet in the evening. Take with meals. Do all this for 30 days. atorvastati 2022-2022- No [id number] 40mg Take 1 Univers n 40 mg 12-12 tablet by ity of tablet 00:00: 04:59 mouth at [place] 00 :00 [facility] for 30 Branch days. donepeziL 5 2022-2022- No [id number] 5mg Take 1 [facility] mg tablet 12-12 tablet by ity of 00:00: 00:00 mouth in [place] 00 :00 [facility] for 30 days. memantine 5 2022-0 2022- No [id number] 5mg Take 1 Univers mg tablet 12-12- tablet by ity of 00:00: 00:00 mouth in [place] 00 :00 [facility] for 30 days. donepeziL 5 2022-0 3- No [id number] 5mg Take 1 Univers mg tablet 12-12 tablet by ity of 00:00: 00:00 mouth in [place] 00 :00 [facility] for 30 days. memantine 5 2022-2022- No [id number] 5mg Take 1 Univers mg tablet 12-12 tablet by ity of 00:00: 00:00 mouth in [place] 00 :00 [facility] for 30 days. levalbutero Yes 1.25mg [...] [place] mg 00 First dose Medical on [facility] Branch 12/11/22 at 0900, Until Discontinu ed, Routine nicotine 0 Yes 1{patch 1 Patch, Un igor (NICODERM) 25 } Topical, ity o f 21 mg/24 hr 13:45: Administer [place] patch 1 00 over 24 Medical Patch Hours, Branch Q24H, First dose on [facility] 12/11/22 at 0845, Until Discontinu ed, Routine ipratropium 0 Yes .5mg 0.5 mg, Uni vers (ATROVENT) 25 Inhalation ity of 0.02 % 13:00: , QID, [place] nebulizer 00 First dose Medi lucho solution on [facility] Branch 0.5 mg 12/11/22 at 0800, Until Discontinu ed carvediloL 0 Yes 3.125mg 3.125 mg, Univers (COREG) 25 Oral, BID ity of tablet 13:00: MEALS, [place] 3.125 mg 00 First dose Medic al on [facility] Branch 12/11/22 at 0800, Until Discontinu ed, Routine busPIRone Yes 10mg 10 mg, Univer s (BUSPAR) 3-25 Oral, BID, ity o f tablet 10 13:00: First dose [place] mg 00 on [facility] Medical 12/11/22 at Branch 0800, Until Discontinu ed, Routine methylpredn 2022- No 125mg 125 mg, U nivers isolone sod 12-11-25 Intravenou i ty of succ 05:00: 12:35 s, Q6H, [place] (SOLU-MEDRO 00 :32 First dose Me dical L) on [facility] Branch injection 12/11/22 at 125 mg 0000, Until Discontinu ed, Routine NaCl 0.9% 2022- No 1000mL at 100 Uni vers (NS) IV 12-11 03-25 mL/hr, IV ity of infusion 03:30: 14:48 Infusion, [place] 1,000 mL 00 :38 CONTINUOUS Medic al , Starting Branch on Tue12/10/22 at 2230, Until 12/11/22 at 0948, Routine albuterol 0 Yes 2{puff} 2 Puff, [facility] [place] (VENTOLIN) [...] 2022- No 1{tbl} 1 tablet, Univers -acetaminop - 03-27 Oral, ity of hen (NORCO 03:04: [...] Until Discontinu ed, Routine NaCl 0.9% 2023-0 202- No 1000mL at 999 Uni vers (NS) bolus 3-25 03-25 mL/hr, ity of infusion 00:15: 03:18 1,000 mL, [place] 1,000 mL 00 :00 IV Medical Infusion, Branch ONCE, 1 dose, On 12/10/22 at 1915, STAT ipratropium 2022-0 Yes .5mg 0.5 mg, Uni vers (ATROVENT) 12-10 Inhalation ity of 0.02 % 23:48: , Q4HPRN, [place] nebulizer 58 Starting Medica l solution on Tue Branch 0.5 mg 12/10/22 at 1848, Until Discontinu ed, Routine, Wheezing, Shortness of Breath NaCl 0.9% 2022-0 202- No 500mL at 999 Univ ers (NS) bolus -18 03-18 mL/hr, 500 it y of infusion 16:15: 15:41 mL, IV [place] 500 mL 00 :58 Piggyback, Medical ONCE, 1 Branch dose, On 12/04/22 at 1115, STAT carvediloL 2022-0 Yes 3.125mg Take 1 [facility] 3.125 mg 3-18 tablet by ity of tablet 12:44: mouth in [place] [address] the Medical morning Branch and 1 tablet in the evening. Take with meals. busPIRone 3-0 Yes 10mg Take 1 Univer s 10 mg 3-18 tablet by ity of tablet 12:44: mouth in [place] [address] the Medical morning Branch and 1 tablet in the evening. busPIRone 3-0 Yes 30mg Take 1 Univer s 30 mg 3-18 tablet by ity of tablet 12:44: mouth in [place] 03 the Medical morning Branch and 1 tablet in the evening. KCL 20 mEq 2022-0 Yes Take by Univ ers tablet 3-18 mouth 2 ity of 12:44: (two) [place] 03 times Medical daily. Branch benazepriL 3-0 Yes 10mg Take 1 Unive rs 10 mg 3-18 tablet by ity of tablet 12:44: mouth in [place] 03 the Medical morning. Branch rivaroxaban 3-0 Yes 15mg Take 1 Univ ers (XARELTO) 3-18 tablet by ity o f 15 mg 12:44: mouth in [place] tablet 03 the Medical morning. Branch carvediloL 2023-0 Yes 3.125mg Take 1 [facility] ig[facility] 3.125 mg 3-18 tablet by ity of tablet 12:44: mouth in [place] [address] the Medical morning Branch and 1 tablet in the evening. Take with meals. busPIRone 2023-0 Yes 10mg Take 1 Univer s 10 mg 3-18 tablet by ity of tablet 12:44: mouth in [place] 03 the Medical morning Branch and 1 tablet in the evening. busPIRone 2023-0 Yes 30mg Take 1 Univer s 30 mg 3-18 tablet by ity of tablet 12:44: mouth in [place] [address] the Medical morning Branch and 1 tablet in the evening. KCL 20 mEq 2023-0 Yes Take by Univ ers tablet 3-18 mouth 2 ity of 12:44: (two) [place] [address] times Medical daily. Branch benazepriL 2023-0 Yes 10mg Take 1 Unive rs 10 mg 3-18 tablet by ity of tablet 12:44: mouth in [place] [address] the Medical morning. Branch rivaroxaban 2023-0 Yes 15mg Take 1 Univ ers (XARELTO) 3-18 tablet by ity o f 15 mg 12:44: mouth in [facility] 03 the Medical morning. Branch carvediloL 2023-0 Yes 3.125mg Take 1 [facility] ig[facility] 3.125 mg 3-18 tablet by ity of tablet 12:44: mouth in [place] [address] the Medical morning Branch and 1 tablet in the evening. Take with meals. busPIRone 2023-0 Yes 10mg Take 1 Univer s 10 mg 3-18 tablet by ity of tablet 12:44: mouth in [place] [address] the Medical morning Branch and 1 tablet in the evening. busPIRone 2023-0 Yes 30mg Take 1 Univer s 30 mg 3-18 tablet by ity of tablet 12:44: mouth in [place] [address] the Medical morning Branch and 1 tablet in the evening. KCL 20 mEq 2023-0 Yes Take by Univ ers tablet 3-18 mouth 2 ity of 12:44: (two) [place] 03 times Medical daily. Branch benazepriL 2023-0 Yes 10mg Take 1 Unive rs 10 mg 3-18 tablet by ity of tablet 12:44: mouth in [place] 03 the Medical morning. Branch rivaroxaban 2023-0 [...] the evening. Take with meals. busPIRone 2022-0 Yes 10mg Take 1 Univer s 10 mg 3-18 tablet by ity of tablet 12:44: mouth in [place] 03 the Medical morning Branch and 1 tablet in the evening. busPIRone 2022-0 Yes 30mg Take 1 Univer s 30 mg 3-18 tablet by ity of tablet 12:44: mouth in [place] 03 the Medical morning Branch and 1 tablet in the evening. KCL 20 mEq 2022-0 Yes Take by Univ ers tablet 3-18 mouth 2 ity of 12:44: (two) [place] 03 times Medical daily. Branch benazepriL 0 Yes 10mg Take 1 Unive rs 10 mg 3-18 tablet by ity of tablet 12:44: mouth in [place] 03 the Medical morning. Branch rivaroxaban 0 Yes 15mg Take 1 Univ ers (XARELTO) 3-18 tablet by ity o f 15 mg 12:44: mouth in [place] tablet 03 the Medical morning. Branch albuterol Yes [id number] 2{puff} Inhale 2 Univers 90 3-18 Puffs ity of mcg/actuati 00:00: every 6 [place] on inhaler 00 (six) Medical hours as Branch needed for Wheezing or Shortness of Breath. albuterol 0 Yes [id number] 2{puff} Inhale 2 Univers 90 3-18 Puffs ity of mcg/actuati 00:00: every 6 [place] on inhaler 00 (six) Medical hours as Branch needed for Wheezing or Shortness of Breath. albuterol 2022-0 Yes [id number] 2{puff} Inhale 2 Univers 90 3-18 Puffs ity of mcg/actuati 00:00: every 6 [place] on inhaler 00 (six) Medical hours as Branch needed for Wheezing or Shortness of Breath. albuterol 2022-0 Yes [id number] 2{puff} Inhale 2 [facility] 90 3-18 Puffs ity of mcg/actuati 00:00: every 6 [place] on inhaler 00 (six) Medical hours as Branch needed for Wheezing or Shortness of Breath. albuterol Yes [id number] 2{puff} Inhale 2 [facility] 90 3-18 Puffs ity of mcg/actuati 00:00: every 6 [place] on inhaler 00 (six) Medical hours as Branch needed for Wheezing or Shortness of Breath. albuterol Yes [id number] 2{puff} Inhale 2 [facility] 90 3-18 Puffs ity of mcg/actuati 00:00: every 6 [place] on inhaler 00 (six) Medical hours as Branch needed for Wheezing or Shortness of Breath. albuterol Yes [id number] 2{puff} Inhale 2 Univers 90 3-18 Puffs ity of mcg/actuati 00:00: every 6 [place] on inhaler 00 (six) Medical hours as Branch needed for Wheezing or Shortness of Breath. albuterol Yes [id number] 2{puff} Inhale 2 [facility] 90 3-18 Puffs ity of mcg/actuati 00:00: every 6 [place] on inhaler 00 (six) Medical hours as Branch needed for Wheezing or Shortness of Breath. albuterol Yes [id number] 2{puff} Inhale 2 Univers 90 3-18 Puffs ity of mcg/actuati 00:00: every 6 [place] on inhaler 00 (six) Medical hours as Branch needed for Wheezing or Shortness of Breath. albuterol Yes [id number] 2{puff} Inhale 2 [facility] 90 3-18 Puffs ity of mcg/actuati 00:00: every 6 [place] on inhaler 00 (six) Medical hours as Branch needed for Wheezing or Shortness of Breath. albuterol Yes [id number] 2{puff} Inhale 2 [facility] 90 3-18 Puffs ity of mcg/actuati 00:00: every 6 [place] on inhaler 00 (six) Medical hours as Branch needed for Wheezing or Shortness of Breath. albuterol Yes [id number] 2{puff} Inhale 2 [facility] 90 3-18 Puffs ity of mcg/actuati 00:00: every 6 [place] on inhaler 00 (six) Medical hours as Branch needed for Wheezing or Shortness of Breath. albuterol No [id number] 2{puff} Inhale 2 [facility] 90 3-18 05-03 Puffs ity of mcg/actuati 00:00: 00:00 every 6 [place] on inhaler 00 :00 (six) Medical hours as Branch needed for Wheezing or Shortness of Breath. tiotropium No [id number] 18ug Inhale 1 Univers 18 mcg 3-18 04-18 capsule in ity of inhalation 00:00: 04:59 the [place] 00 :00 morning Medical for 30 Branch days. tiotropium No [id number] 18ug Inhale 1 Univers 18 mcg 3-18 04-18 capsule in ity of inhalation 00:00: 04:59 the [place] 00 :00 morning Medical for 30 Branch days. tiotropium No [id number] 18ug Inhale 1 Univers 18 mcg 3-18 04-18 capsule in ity of inhalation 00:00: 04:59 the [place] 00 :00 morning Medical for 30 Branch days. tiotropium 2022- No [id number] 18ug Inhale 1 Univers 18 mcg 3-18 04-18 capsule in ity of inhalation 00:00: 04:59 the [place] 00 :00 morning Medical for 30 Branch days. tiotropium 2022- No [id number] 18ug Inhale 1 Univers 18 mcg 3-18 04-18 capsule in ity of inhalation 00:00: 04:59 the [place] 00 :00 morning Medical for 30 Branch days. tiotropium No [id number] 18ug Inhale 1 Univers 18 mcg 3-18 04-18 capsule in ity of inhalation 00:00: 04:59 the [place] 00 :00 morning Medical for 30 Branch days. tiotropium No [id number] 18ug Inhale 1 Univers 18 mcg 3-18 04-18 capsule in ity of inhalation 00:00: 04:59 the [place] 00 :00 morning Medical for 30 Branch days. tiotropium 2022- No [id number] 18ug Inhale 1 Univers 18 mcg 3-18 -18 capsule in ity of inhalation 00:00: 04:59 the [place] 00 :00 morning Medical for 30 Branch days. doxycycline 2022-2022- No [id number] 100mg Take 1 Univers hyclate 100 3-18 03-24 capsule by i ty of mg capsule 00:00: 04:59 mouth [place] 00 :00 every 12 Medical (twelve) Branch hours for 5 days. predniSONE 2022-0 2022- No [id number] 40mg Take 2 Univers 20 mg 3-18 03-24 tablets by ity of tablet 00:00: 04:59 mouth in [place] 00 :00 the Medical morning Branch for 5 days. doxycycline 2022-2022- No [id number] 100mg Take 1 Univers hyclate 100 3-18 03-24 capsule by i ty of mg capsule 00:00: 04:59 mouth [place] 00 :00 every 12 Medical (twelve) Branch hours for 5 days. predniSONE 2022-0 2022- No [id number] 40mg Take 2 Univers 20 mg 3-18 03-24 tablets by ity of tablet 00:00: 04:59 mouth in [place] 00 :00 the Medical morning Branch for 5 days. rivaroxaban Yes 15mg 15 mg, Univ ers (XARELTO) 317 Oral, ity of tablet 15 17:15: DAILY, [place] mg 00 First dose Medical (after Branch last modificati on) on Tue12/03/22 at 1215, Until Discontinu ed, Routine enoxaparin 2022- No 40mg 40 mg, Univ ers (LOVENOX) 16 -17 Subcutaneo ity of injection 22:00: 16:06 us, DAILY, [place] 40 mg 00 :59 First dose Medical on [facility] Branch 12/02/22 at 1700, Until Discontinu ed, Routine methylPREDN Yes 40mg 40 mg, Univ ers ISolone sod -16 Intravenou it y of succ 19:00: s, Q8H, [place] (SOLU-MEDRO 00 First dose Me dical L (PF)) on [facility] Branch injection 12/02/22 at 40 mg 1400, Until Discontinu ed, 1 mL codeine-gua 2023-0 Yes 5mL 5 mL, Unive rs ifenesin 16 Oral, ity of (ROBITUSSIN 16:25: Q6HPRN, [place] AC) 10-100 07 Starting Medic al mg/5 mL on [place] Branch oral 12/02/22 at solution 5 1125, mL Until Discontinu ed, Routine, Cough levalbutero 2022-0 Yes 1.25mg 1.25 mg, Univers l (XOPENEX) 16 Inhalation it y of nebulizer 13:00: , Q4H, [place] solution 00 First dose Medic al 1.25 mg on [place] Branch 12/02/22 at 0800, Until Discontinu ed, Routine ipratropium 2022-0 Yes .5mg 0.5 mg, Uni vers (ATROVENT) 12-02 Inhalation ity of 0.02 % 13:00: , Q4H, [place] nebulizer 00 First dose Medi lucho solution on [place] Branch 0.5 mg 12/02/22 at 0800, Until Discontinu ed, Routine doxycycline 0 2022- No 100mg 100 mg, U nivers [...] ion of therapy: 5 days NaCl 0.9% 0 202- No 1000mL at 75 Univ ers [...] Yes 4mg 4 mg, Slow Univers (ZOFRAN 12-02 IV Push, ity of (PF)) 11:30: Q6HPRN, [place] injection 4 03 Starting Medi lucho mg on [place] Branch 12/02/22 at 0630, Until Discontinu ed, Routine, Nausea and Vomiting (N/V) bisacodyL Yes 10mg 10 mg, Univer s (DULCOLAX) 12-02 Oral, ity of tablet 10 11:30: QDAILYPRN, [place] mg 03 Starting Medical on [place] Branch 12/02/22 at 0630, Until Discontinu ed, Routine, Constipati on acetaminoph Yes 650mg 650 mg, Un igor en 12-02 Oral, ity of (TYLENOL) 11:30: Q6HPRN, [place] tablet 650 03 Starting Medic al mg on [place] Branch 12/02/22 at 0630, Until Discontinu ed, Routine, Pain (scale 1-3) methylpredn 2022- No 125mg 125 mg, U nivers isolone sod 12-02 Intravenou i ty of succ 06:15: 05:27 s, ONCE, 1 [place] (SOLU-MEDRO 00 :00 dose, On Medi lucho [...] 0.02 % 12:30: 12:38 , ONCE, 1 [place] nebulizer 00 :00 dose, On Medica l solution Wed Branch 0.5 mg 12/01/22 at 0730, MICHAEL levalbutero 2022- No 1.25mg 1.25 mg, Univers l (XOPENEX) 12-01 Inhalation i ty of nebulizer 11:15: 10:38 , ONCE, 1 [place] solution 00 :00 dose, On Medical 1.25 mg Wed Branch 12/01/22 at 0615, Routine ipratropium 0 2022- No .5mg 0.5 mg, [facility] igor (ATROVENT) 12-01 Inhalation it y of 0.02 % 10:30: 10:38 , ONCE, 1 [place] nebulizer 00 :00 dose, On Medica l solution Wed Branch 0.5 mg 12/01/22 at 0530, MICHAEL methylPREDN 2022- No 40mg 40 mg, Uni vers ISolone sod 12-01 Intravenou i ty of succ 10:30: 10:35 s, ONCE, 1 [place] (SOLU-MEDRO 00 :00 dose, On Medi lucho L (PF)) Wed Branch injection 12/01/22 at 40 mg 0530, MICHAEL Nebulizer & 0 Yes [id number] Use as [facility] Compressor 3-15 directed ity o f For Neb 00:00: Medical Branch albuterol 2022-0 Yes [id number] 2{puff} Inhale 2 [facility] 90 3-15 Puffs ity of mcg/actuati 00:00: every 4 [place] on inhaler 00 (four) Medical hours as Branch needed for Wheezing or Shortness of Breath. Nebulizer & 0 Yes [id number] Use as [facility] Compressor 3-15 directed ity o f For Neb 00:00: Medical Branch albuterol 2022-0 Yes [id number] 2{puff} Inhale 2 [facility] 90 3-15 Puffs ity of mcg/actuati 00:00: every 4 [place] on inhaler 00 (four) Medical hours as Branch needed for Wheezing or Shortness of Breath. Nebulizer & 2022-0 Yes [id number] Use as [facility] Compressor 3-15 directed ity o f For Neb 00:00: Medical Branch albuterol 0 Yes [id number] 2{puff} Inhale 2 Univers 90 3-15 Puffs ity of mcg/actuati 00:00: every 4 [place] on inhaler 00 (four) Medical hours as Branch needed for Wheezing or Shortness of Breath. Nebulizer & 2022-0 Yes [id number] Use as Univers Compressor 3-15 directed ity o f For Neb 00:00: Medical Branch Nebulizer & 2022-0 Yes [id number] Use as Univers Compressor 3-15 directed ity o f For Neb 00:00: Medical Branch Nebulizer & 2022-0 Yes [id number] Use as Univers Compressor 3-15 directed ity o f For Neb 00:00: Medical Branch Nebulizer & 2022-0 Yes [id number] Use as Univers Compressor 3-15 directed ity o f For Neb 00:00: Medical Branch Nebulizer & 2022-0 Yes [id number] Use as Univers Compressor 3-15 directed ity o f For Neb 00:00: Medical Branch Nebulizer & 2022-0 Yes [id number] Use as Univers Compressor 3-15 directed ity o f For Neb 00:00: Medical Branch Nebulizer & 2022-0 Yes [id number] Use as [facility] Compressor 3-15 directed ity o f For Neb 00:00: Medical Branch Nebulizer & 2022-0 Yes [id number] Use as Univers Compressor 3-15 directed ity o f For Neb 00:00: Medical Branch Nebulizer & 2022-0 Yes [id number] Use as Univers Compressor 3-15 directed ity o f For Neb 00:00: Medical Branch Nebulizer & 2022-0 Yes [id number] Use as Univers Compressor 3-15 directed ity o f For Neb 00:00: Medical Branch Nebulizer & 2022-0 Yes [id number] Use as Univers Compressor 3-15 directed ity o f For Neb 00:00: Medical Branch Nebulizer & 3-0 Yes [id number] Use as Univers Compressor 3-15 directed ity o f For Neb 00:00: Medical Branch Nebulizer & 2022-0 Yes [id number] Use as Univers Compressor 3-15 directed ity o f For Neb 00:00: Medical Branch Nebulizer & 3-0 Yes [id number] Use as Univers Compressor 3-15 directed ity o f For Neb 00:00: Medical Branch Nebulizer & 3-0 Yes [id number] Use as Univers Compressor 3-15 directed ity o f For Neb 00:00: Medical Branch Nebulizer & 2022-0 Yes [id number] Use as [facility] Compressor 3-15 directed ity o f For Neb 00:00: Medical Branch Nebulizer & 2022-0 Yes [id number] Use as Univers Compressor 3-15 directed ity o f For Neb 00:00: Medical Branch Nebulizer & 2022-0 Yes [id number] Use as Univers Compressor 3-15 directed ity o f For Neb 00:00: Medical Branch Nebulizer & 2022-0 Yes [id number] Use as Univers Compressor 3-15 directed ity o f For Neb 00:00: Medical Branch Nebulizer & 2022-0 Yes [id number] Use as [facility] Compressor 3-15 directed ity o f For Neb 00:00: Medical Branch Nebulizer & 2022-0 Yes [id number] Use as Univers Compressor 3-15 directed ity o f For Neb 00:00: Medical Branch Nebulizer & 3-0 Yes [id number] Use as Univers Compressor 3-15 directed ity o f For Neb 00:00: Medical Branch Nebulizer & 2022-0 Yes [id number] Use as Univers Compressor 3-15 directed ity o f For Neb 00:00: Medical Branch Nebulizer & 3-0 Yes [id number] Use as Univers Compressor 3-15 directed ity o f For Neb 00:00: Medical Branch Nebulizer & 3-0 Yes [id number] Use as Univers Compressor 3-15 directed ity o f For Neb 00:00: Medical Branch Nebulizer & 2022-0 Yes [id number] Use as Univers Compressor 3-15 directed ity o f For Neb 00:00: Medical Branch Nebulizer & 2022-0 Yes [id number] Use as Univers Compressor 3-15 directed ity o f For Neb 00:00: Medical Branch Nebulizer & 2022-0 Yes [id number] Use as Univers Compressor 3-15 directed ity o f For Neb 00:00: Medical Branch Nebulizer & 2022-0 Yes [id number] Use as Univers Compressor 3-15 directed ity o f For Neb 00:00: Medical Branch Nebulizer & 2022-0 Yes [id number] Use as Univers Compressor 3-15 directed ity o f For Neb 00:00: Medical Branch Nebulizer & 2022-0 Yes [id number] Use as Univers Compressor 3-15 directed ity o f For Neb 00:00: Medical Branch Nebulizer & 2022-0 Yes [id number] Use as Univers Compressor 3-15 directed ity o f For Neb 00:00: Medical Branch Nebulizer & 2022-0 Yes [id number] Use as Univers Compressor 3-15 directed ity o f For Neb 00:00: Medical Branch Nebulizer & 2022-0 Yes [id number] Use as Univers Compressor 3-15 directed ity o f For Neb 00:00: Medical Branch Nebulizer & 2022-0 Yes [id number] Use as Univers Compressor 3-15 directed ity o f For Neb 00:00: Medical Branch Nebulizer & 2022-0 Yes [id number] Use as Univers Compressor 3-15 directed ity o f For Neb 00:00: Medical Branch Nebulizer & 2022-0 Yes [id number] Use as Univers Compressor 3-15 directed ity o f For Neb 00:00: Medical Branch Nebulizer & 2022-0 Yes [id number] Use as Univers Compressor 3-15 directed ity o f For Neb 00:00: Medical Branch albuterol 2022-0 Yes [id number] 2{puff} Inhale 2 Univers 90 3-15 Puffs ity of mcg/actuati 00:00: every 4 [place] on inhaler 00 (four) Medical hours as Branch needed for Wheezing or Shortness of Breath. predniSONE 2022-0 Yes [id number] 50mg Take 1 Univers 50 mg 3-15 tablet by ity of tablet 00:00: mouth in [place] 00 the Medical morning. Branch Nebulizer & 2022-0 Yes [id number] Use as Univers Compressor 3-15 directed ity o f For Neb 00:00: [place] 00 Medical Branch albuterol 2022-0 Yes [id number] 2{puff} Inhale 2 Univers 90 3-15 Puffs ity of mcg/actuati 00:00: every 4 [place] on inhaler 00 (four) Medical hours as Branch needed for Wheezing or Shortness of Breath. albuterol 2022-0 2022- No [id number] 2{puff} Inhale 2 Univers 90 3-15 03-26 Puffs ity of mcg/actuati 00:00: 00:00 every 4 [place] on inhaler 00 :00 (four) Medical hours as Branch needed for Wheezing or Shortness of Breath. predniSONE 2022-0 2022- No [id number] 50mg Take 1 Univers 50 mg 3-15 03-18 tablet by ity of tablet 00:00: 00:00 mouth in [place] 00 :00 the Medical morning. Branch omeprazole 2022-2022- No 40mg Take 40 mg Univers 40 mg -12 -12 by mouth ity of capsule 14:11: 00:00 daily. [place] 21 :00 Medical Branch carvediloL 2022-0 2022- No 25mg Take 25 mg Univers 25 mg -08 21-12 by mouth 2 ity of tablet 14:11: 00:00 (two) [place] 21 :00 times Medical daily with Branch meals. busPIRone 2022-0 2022- No 30mg Take 30 mg U nivers 30 mg -08 21-12 by mouth 2 ity of tablet 14:11: 00:00 (two) [place] 21 :00 times Medical daily. Branch benazepriL 2022-0 2022- No 10mg Take 10 mg Univers 10 mg -08 21-12 by mouth ity of tablet 14:11: 00:00 daily. [place] 21 :00 Medical Branch hydroCHLORO 2022-0 202- No 25mg Take 25 mg Univers thiazide 25 11-28 03-12 by mouth ity of mg tablet 14:11: 00:00 daily. [place] : [facility] Branch levalbutero 2022-0 Yes .63mg 0.63 mg, U nivers l (XOPENEX) 3-12 Inhalation it y of nebulizer 13:00: , TID, [place] solution 00 First dose Medic al 0.63 mg (after Branch last modificati on) on [place] 11/28/22 at 0800, Until Discontinu ed, Routine ipratropium 2022-0 Yes .5mg 0.5 mg, Uni vers (ATROVENT) 3- Inhalation ity of 0.02 % 20:00: , TID, [place] nebulizer 00 First dose Medi lucho solution (after Branch 0.5 mg last modificati on) on [facility] 11/27/22 at 1400, Until Discontinu ed, Routine nicotine 2022-0 Yes 1{patch 1 Patch, Un igor (NICODERM) 3 } Topical, ity o f 21 mg/24 hr 17:30: Administer [place] patch 1 00 over 24 Medical Patch Hours, Branch Q24H, First dose on [facility] 11/27/22 at 1130, Until Discontinu ed, Routine busPIRone 2022-0 Yes 10mg 10 mg, Univer s (BUSPAR) 3-11 Oral, TID, ity o f tablet 10 16:15: First dose [place] mg 00 on [facility] Medical 11/27/22 at Branch 1015, Until Discontinu ed, Routine aspirin 2022-0 Yes 81mg 81 mg, Univers chewable 11-27 Oral, ity of tablet 81 16:15: DAILY, [place] mg 00 First dose Medical on [facility] Branch 11/27/22 at 1015, Until Discontinu ed, Routine foLIC acid 2022-0 Yes 1mg 1 mg, Univer s (FOLATE) 3-11 Oral, ity of tablet 1 mg 15:00: DAILY, [place] 00 First dose Medical on [facility] Branch 11/27/22 at 0900, Until Discontinu ed, Routine rivaroxaban 2022-0 Yes 20mg 20 mg, Univ ers (XARELTO) 3-11 Oral, ity of tablet 20 15:00: DAILY, [place] mg 00 First dose Medical on [facility] Branch 11/27/22 at 0900, Until Discontinu ed, Routine omeprazole 0 Yes 40mg 40 mg, Unive rs (PRILOSEC) 11-27 Oral, ity of capsule 40 15:00: DAILY, [place] mg 00 First dose Medical on [facility] Branch 11/27/22 at 0900, Until Discontinu ed predniSONE 2022- No 40mg 40 mg, Univ ers (DELTASONE) 11-2716 Oral, ity of tablet 40 15:00: 13:59 DAILY, 5 [place] mg 00 :00 doses, Medical First dose Branch on [facility] 11/27/22 at 0900, Last dose on Tue12/01/22 at 0900, Routine carvediloL Yes 25mg 25 mg, Unive rs (COREG) 11-27 Oral, BID ity of tablet 25 14:00: MEALS, [place] mg 00 First dose Medical on [facility] 11/27/22 at 0800, Until Discontinu ed, Routine levalbutero 2022- No .31mg 0.31 mg, Univers l (XOPENEX) 11-2712 Inhalation i ty of nebulizer 14:00: 12:33 , TID, [place] solution 00 :58 First dose Medic al 0.31 mg on [facility] Branch 11/27/22 at 0800, Until Discontinu ed, Routine ipratropium 2022- No .5mg 0.5 mg, Un igor (ATROVENT) 11-27 Inhalation it y of 0.02 % 14:00: 18:48 , QID, [place] nebulizer 00 :56 First dose Medi lucho solution on [facility] Branch 0.5 mg 11/27/22 at 0800, Until Discontinu ed, Routine thiamine Yes 100mg 100 mg, Unive rs (VITAMIN 11-27 Oral, ity of B1) tablet 08:30: DAILY, [place] 100 mg 00 First dose Medical (after Branch last modificati on) on [facility] 11/27/22 at 0230, Until Discontinu ed, Routine LORazepam 0 Yes 1mg 1 mg, Slow [facility] igor (ATIVAN) 11-27 IV Push, ity of injection 1 08:16: Q4HPRN, [place] mg 19 Starting Medical on [place] Branch 11/27/22 at 0216, Until Discontinu ed, Routine, Agitation, Seizures, withdrawl levalbutero Yes 1.25mg 1.25 mg, Univers l [...] [place] 11/18/22 Branch at 2000, Routine thiamine 2022-0 2022- No [id number] 100mg Take 1 Univers 100 mg 2-24 -27 tablet by ity of tablet 00:00: 04:59 mouth in [place] 00 :00 the [facility] for 30 days. thiamine 2022-0 202- No [id number] 100mg Take 1 Univers 100 mg 2-24 -27 tablet by ity of tablet 00:00: 04:59 mouth in [place] 00 :00 [facility] for 30 days. thiamine 202-0 202- No [id number] 100mg Take 1 Univers 100 mg 2-24 03-27 tablet by ity of tablet 00:00: 04:59 mouth in [place] 00 :00 [facility] for 30 days. thiamine 2023-0 202- No [id number] 100mg Take 1 Univers 100 mg 2-24 03-27 tablet by ity of tablet 00:00: 04:59 mouth in [place] 00 :00 [facility] for 30 days. thiamine 2023-0 2023- No [id number] 100mg Take 1 Univers 100 mg 2-24 03-27 tablet by ity of tablet 00:00: 04:59 mouth in [place] 00 :00 the Medical [facility] [facility] for 30 days. thiamine 2023-0 2023- No [id number] 100mg Take 1 [facility] 100 mg 2-24 -12 tablet by ity of tablet 00:00: 00:00 mouth in [place] 00 :00 the [facility] Branch for 30 days. thiamine 2023-0 Yes 100mg 100 mg, Unive rs (VITAMIN 2-23 Oral, ity of B1) tablet 15:00: DAILY, [place] 100 mg 00 First dose Medical on [facility] Branch 11/11/22 at 0900, Until Discontinu ed, Routine omeprazole 2022-0 Yes 40mg Take 40 mg U nivers 40 mg 2-23 by mouth ity of capsule 13:41: daily. [address] carvediloL 3-0 Yes 25mg Take 25 mg U nivers 25 mg 2-23 by mouth 2 ity of tablet 13:41: (two) [place] [address] times Medical daily with Branch meals. busPIRone 3-0 Yes 30mg Take 30 mg [place] 30 mg 2-23 by mouth 2 ity of tablet 13:41: (two) [place] [address] times Medical daily. Branch benazepriL 3-0 Yes 10mg Take 10 mg U nivers 10 mg 2-23 by mouth ity of tablet 13:41: daily. [address] hydroCHLORO 3-0 Yes 25mg Take 25 mg Univers thiazide 25 2-23 by mouth ity of mg tablet 13:41: daily. [address] omeprazole 3-0 Yes 40mg Take 40 mg U nivers 40 mg 2-23 by mouth ity of capsule 13:41: daily. [address] carvediloL 3-0 Yes 25mg Take 25 mg U nivers 25 mg 2-23 by mouth 2 ity of tablet 13:41: (two) [place] [address] times Medical daily with Branch meals. busPIRone 2023-0 Yes 30mg Take 30 mg [place] 30 mg 2-23 by mouth 2 ity of tablet 13:41: (two) [place] [address] times Medical daily. Branch benazepriL 2023-0 Yes 10mg Take 10 mg U nivers 10 mg 2-23 by mouth ity of tablet 13:41: daily. [address] hydroCHLORO 2023-0 Yes 25mg Take 25 mg Univers thiazide 25 2-23 by mouth ity of mg tablet 13:41: daily. [address] omeprazole 2023-0 Yes 40mg Take 40 mg U nivers 40 mg 2-23 by mouth ity of capsule 13:41: daily. [address] carvediloL 2023-0 Yes 25mg Take 25 mg U nivers 25 mg 2-23 by mouth 2 ity of tablet 13:41: (two) [place] [address] times Medical daily with Branch meals. busPIRone 2023-0 Yes 30mg Take 30 mg [place] 30 mg 2-23 by mouth 2 ity of tablet 13:41: (two) [place] [address] times Medical daily. Branch benazepriL 3-0 Yes 10mg Take 10 mg U nivers 10 mg 2-23 by mouth ity of tablet 13:41: daily. [address] hydroCHLORO 3-0 Yes 25mg Take 25 mg Univers thiazide 25 2-23 by mouth ity of mg tablet 13:41: daily. [address] omeprazole 3-0 Yes 40mg Take 40 mg U nivers 40 mg 2-23 by mouth ity of capsule 13:41: daily. [address] carvediloL 3-0 Yes 25mg Take 25 mg U nivers 25 mg 2-23 by mouth 2 ity of tablet 13:41: (two) [address] Medical daily with Branch meals. busPIRone 2023-0 Yes 30mg Take 30 mg [place] 30 mg 2-23 by mouth 2 ity of tablet 13:41: (two) [place] [address] times Medical daily. Branch benazepriL 3-0 Yes 10mg Take 10 mg U nivers 10 mg 2-23 by mouth ity of tablet 13:41: daily. [address] hydroCHLORO 2023-0 Yes 25mg Take 25 mg Univers thiazide 25 2-23 by mouth ity of mg tablet 13:41: daily. [address] omeprazole 2023-0 Yes 40mg Take 40 mg U nivers 40 mg 2-23 by mouth ity of capsule 13:41: daily. [address] carvediloL 2023-0 Yes 25mg Take 25 mg U nivers 25 mg 2-23 by mouth 2 ity of tablet 13:41: (two) [place] [address] times Medical daily with Branch meals. busPIRone 2022-0 Yes 30mg Take 30 mg [place] 30 mg 2-23 by mouth 2 ity of tablet 13:41: (two) [place] [address] times Medical daily. Branch benazepriL 2022-0 Yes 10mg Take 10 mg U nivers 10 mg 2-23 by mouth ity of tablet 13:41: daily. [address] hydroCHLORO 2022-0 Yes 25mg Take 25 mg Univers thiazide 25 2-23 by mouth ity of mg tablet 13:41: daily. [address] foLIC acid 0 2022- No 1mg 1 mg, Unive rs (FOLATE) 2-11 11- Oral, ity of tablet 1 mg 00:15: 00:26 ONCE, 1 [place] 00 :00 dose, On Medical Wed Branch 11/10/22 at 1815, Routine benzocaine- 2022-0 Yes [id number] 1{lozen Take 1 Univers menthoL 2-23 ge} Lozenge by ity of lozenge 00:00: mouth [place] [address] every 4 Medical (four) Branch hours as needed for Sore throat. budesonide- 2022-0 Yes [id number] 2{puff} Inhale 2 Univers formoteroL 2-23 Puffs in ity o f 80-4.5 00:00: the [place] mcg/actuati 00 morning Medic al on inhaler and 2 Branch Puffs in the evening. benzocaine- 2022-0 Yes [id number] 1{lozen Take 1 Univers menthoL 2-23 ge} Lozenge by ity of lozenge 00:00: mouth [place] 00 every 4 Medical (four) Branch hours as needed for Sore throat. budesonide- 2022-0 Yes [id number] 2{puff} Inhale 2 Univers formoteroL 2-23 Puffs in ity o f 80-4.5 00:00: the [place] mcg/actuati 00 morning Medic al on inhaler and 2 Branch Puffs in the evening. benzocaine- 2022-0 Yes [id number] 1{lozen Take 1 Univers menthoL 2-23 ge} Lozenge by ity of lozenge 00:00: mouth [place] [address] every 4 Medical (four) Branch hours as needed for Sore throat. budesonide- 2022-0 Yes [id number] 2{puff} Inhale 2 Univers formoteroL 2-23 Puffs in ity o f 80-4.5 00:00: the [place] mcg/actuati 00 morning Medic al on inhaler and 2 Branch Puffs in the evening. benzocaine- 2022-0 Yes [id number] 1{lozen Take 1 Univers menthoL 2-23 ge} Lozenge by ity of lozenge 00:00: mouth [place] 00 every 4 Medical (four) Branch hours as needed for Sore throat. budesonide- 2022-0 Yes [id number] 2{puff} Inhale 2 Univers formoteroL 2-23 Puffs in ity o f 80-4.5 00:00: the [place] mcg/actuati 00 morning Medic al on inhaler and 2 Branch Puffs in the evening. benzocaine- 2022-0 Yes [id number] 1{lozen Take 1 Univers menthoL 2-23 ge} Lozenge by ity of lozenge 00:00: mouth [place] 00 every 4 Medical (four) Branch hours as needed for Sore throat. budesonide- 2022-0 Yes [id number] 2{puff} Inhale 2 Univers formoteroL 2-23 Puffs in ity o f 80-4.5 00:00: the [place] mcg/actuati 00 morning Medic al on inhaler and 2 Branch Puffs in the evening. benzocaine- 0 2022- No [id number] 1{lozen Take 1 Univers menthoL 2-23 03-12 ge} Lozenge by ity o f lozenge 00:00: 00:00 mouth [place] 00 :00 every 4 Medical (four) Branch hours as needed for Sore throat. budesonide- 2022-0 2022- No [id number] 2{puff} Inhale 2 Univers formoteroL 2-23 03-12 Puffs in ity of 80-4.5 00:00: 00:00 the [place] mcg/actuati 00 :00 morning Medic al on inhaler and 2 Branch Puffs in the evening. sodium 2022-0 2022- No [id number] 1g Take 1 Uni vers chloride 1 2-23 03-06 tablet by ity of gram tablet 00:00: 05:59 mouth in [place] 00 :00 the Medical morning Branch and 1 tablet at noon and 1 tablet in the evening. Take with meals. Do all this for 10 days. sodium 2023-0 2022- No [id number] 1g Take 1 Uni vers chloride 1 11-11-06 tablet by ity of gram tablet 00:00: 05:59 mouth in [place] 00 :00 the [facility] morning Branch and 1 tablet at noon and 1 tablet in the evening. Take with meals. Do all this for 10 days. sodium 2023-0 2022- No [id number] 1g Take 1 Uni vers chloride 1 11-11-06 tablet by ity of gram tablet 00:00: 05:59 mouth in [place] 00 :00 the [facility] morning Branch and 1 tablet at noon and 1 tablet in the evening. Take with meals. Do all this for 10 days. sodium 2022-0 2022- No [id number] 1g Take 1 Uni vers chloride 1 11-11-06 tablet by ity of gram tablet 00:00: 05:59 mouth in [place] 00 :00 the [facility] morning [facility] and 1 tablet at noon and 1 tablet in the evening. Take with meals. Do all this for 10 days. levoFLOXaci 3-0 2022- No [id number] 750mg Take 1 Univers n 750 mg 11-11- tablet by ity o f tablet 00:00: 05:59 mouth [place] 00 :00 every 24 Medical ([facility]) hours for 5 days. levoFLOXaci 2023-0 2022- No [id number] 750mg Take 1 Univers n 750 mg 11-11- tablet by ity o f tablet 00:00: 05:59 mouth [place] 00 :00 every 24 Medical ([facility]) hours for 5 days. predniSONE 2023-0 2023- No [id number] 40mg Take 2 Univers 20 mg 2-23 02-27 tablets by ity of tablet 00:00: 05:59 mouth in [place] 00 :00 the [facility] for 3 days. predniSONE 2023-0 2023- No [id number] 40mg Take 2 Univers 20 mg 2-23 02-27 tablets by ity of tablet 00:00: 05:59 mouth in [place] 00 :00 the Medical morning Branch for 3 days. sodium 2022-0 Yes 1g 1 g, Oral, Unive rs chloride 2-22 TID MEALS, ity o f tablet 1 g 23:15: First dose [place] 00 on Tue Medical 11/10/22 at Branch 1715, Until Discontinu ed, Routine benzocaine- 2022-0 Yes 1{lozen 1 Lozenge, Univers menthoL 2-22 ge} Oral, ity of (CEPACOL 20:49: Q4HPRN, [place] SORE THROAT 25 Starting Medi lucho (JACINTO-MEN)) on Tue Branch lozenge 1 11/10/22 at Lozenge 1449, Until Discontinu ed, Routine, Sore throat budesonide- 2022-0 Yes 2{puff} 2 Puff, Univers formoteroL 11-10 Inhalation ity of (SYMBICORT) 17:30: , BID, [place] 80-4.5 00 First dose Medical mcg/actuati on Tue on inhaler 11/10/22 at 2 Puff 1130, Until Discontinu ed, Routine omeprazole 2022-0 Yes 40mg 40 mg, Unive rs (PRILOSEC) 11-10 Oral, ity of capsule 40 15:00: DAILY, [place] mg 00 First dose Medical on Tue Branch 11/10/22 at 0900, Until Discontinu ed rivaroxaban 2022-0 Yes 20mg 20 mg, Univ ers (XARELTO) - Oral, ity of tablet 20 15:00: DAILY, [place] mg 00 First dose Medical on Tue Branch 11/10/22 at 0900, Until Discontinu ed, Routine aspirin 2022-0 Yes 81mg 81 mg, Univers chewable 11-10 Oral, ity of tablet 81 15:00: DAILY, [place] mg 00 First dose Medical on Tue Branch 11/10/22 at 0900, Until Discontinu ed, Routine methylPREDN 2022-0 202- No 40mg 40 mg, Uni vers ISolone sod 11-10 Intravenou i ty of succ 15:00: 14:59 s, DAILY, [place] (SOLU-MEDRO 00 :00 4 doses, Medi lucho L (PF)) First dose Branch injection on Tue 40 mg 11/10/22 at 0900, Last dose on 11/13/22 at 0900, 1 mL NaCl 0.9% 2022-0 Yes 1000mL at 100 Univ ers (NS) IV 2-22 mL/hr, IV ity of infusion 09:00: Infusion, [place] 1,000 mL 00 CONTINUOUS Medic al , Starting Branch on Tue11/10/22 at 0300, Until Discontinu ed, Routine levoFLOXaci 2022-0 202- No 750mg 750 mg, IV Univers n in D5W 11-10 0301 Piggyback, ity of (LEVAQUIN) 09:00: 08:59 at [...] First dose [place] mg 00 on [facility] 11/09/22 at Branch 1999, Until Discontinu ed, Routine carvediloL 2022-0 Yes 25mg 25 mg, Unive rs (COREG) 2- Oral, BID ity of tablet 25 23:00: MEALS, [place] mg 00 First dose Medical on [facility] 11/09/22 at 1700, Until Discontinu ed, Routine ipratropium 2022-0 Yes .5mg 0.5 mg, Uni vers (ATROVENT) 2- Inhalation ity of 0.02 % 22:00: , Q4H, [place] nebulizer 00 First dose Medi lucho solution on Tue [facility] 0.5 mg 11/09/22 at 1600, Until Discontinu ed, Routine albuterol 2022-0 Yes 2.5mg 2.5 mg, Univ ers (PROVENTIL) 2-21 Inhalation it y of 2.5 mg /3 22:00: , Q4H, [place] mL (0.083 00 First dose Medi lucho %) on [facility] nebulizer 11/09/22 at solution 1600, 2.5 mg Until Discontinu ed, Routine NaCl 0.9% 2022- No 500mL at 999 Univ ers (NS) bolus 11-09 mL/hr, 500 it y of infusion 20:15: 21:30 mL, IV [place] 500 mL 00 :21 Infusion, Medical ONCE, 1 Branch dose, On Tue11/09/22 at 1415, STAT ondansetron Yes 4mg 4 mg, Slow Univers (ZOFRAN 11-09 IV Push, ity of (PF)) 20:04: Q6HPRN, [place] injection 4 17 Starting Medi lucho mg on Tue Branch 11/09/22 at 1404, Until Discontinu ed, Routine, Nausea and Vomiting (N/V) acetaminoph Yes 650mg 650 mg, Un igor en 11-09 Oral, ity of (TYLENOL) 20:04: Q6HPRN, [place] tablet 650 07 Starting Medic al mg on Tue11/09/22 at 1404, Until Discontinu ed, Routine, Pain (scale 1-3), Temp > 38 C albuterol 0 2022- No 5mg 5 mg, Univer s (PROVENTIL) 11-09 Inhalation i ty of 2.5 mg /3 14:00: 14:05 , ONCE, 1 [place] mL (0.083 00 :00 dose, On Medica l %) [facility] Branch nebulizer 11/09/22 at solution 5 0800, STAT mg albuterol 0 2022- No 10mg 10 mg, Unive rs (PROVENTIL) 11-09 Inhalation i ty of 2.5 mg /3 11:00: 11:04 , ONCE, 1 [place] mL (0.083 00 :00 dose, On Medica l %) [facility] Branch nebulizer 11/09/22 at solution 10 0500, STAT mg ipratropium 0 2022- No .5mg 0.5 mg, Un igor (ATROVENT) 11-09 Inhalation it y of 0.02 % 09:00: 08:59 , ONCE, 1 [place] nebulizer 00 :00 dose, On Medica l solution Branch 0.5 mg 11/09/22 at 0300, MICHAEL albuterol 0 2022- No 2.5mg 2.5 mg, Uni vers (PROVENTIL) 11-09 Inhalation i ty of 2.5 mg /3 09:00: 08:59 , ONCE, 1 [place] mL (0.083 00 :00 dose, On Medica l %) Tue Branch nebulizer 11/09/22 at solution 0300, STAT 2.5 mg magnesium 2022-2022- No 2g 2 g, IV Univ ers [...] 0.5 mg 11/09/22 at 0145, MICHAEL albuterol 0 2022- No 2.5mg 2.5 mg, Uni vers (PROVENTIL) 11-09 Inhalation i ty of 2.5 mg /3 07:45: 07:40 , ONCE, 1 [place] mL (0.083 00 :00 dose, On Medica l %) Tue Branch nebulizer 11/09/22 at solution 0145, STAT 2.5 mg cephALEXin Yes [id number] 500mg Take 1 Univers (KEFLEX) 9-03 capsule by ity o f 500 mg 00:00: mouth 4 [place] capsule 00 (four) Medical times Branch daily. cephALEXin 2021-0 Yes [id number] 500mg Take 1 Univers (KEFLEX) 05-22 capsule by ity o f 500 mg 00:00: mouth 4 [place] capsule 00 (four) Medical times Branch daily. cephALEXin 2022- No [id number] 500mg Take 1 Univers (KEFLEX) -11-11 capsule by ity of 500 mg 00:00: 00:00 mouth 4 [place] capsule 00 :00 (four) Medical times Branch daily. cefTRIAXone 2020- No 1000mg 1,000 mg, Univers (ROCEPHIN) 12-12 IV ity of 1,000 mg in 19:00: 18:23 Piggyback, [place] NaCl 0.9% 00 :00 ONCE, 1 Medical (NS) 50 mL dose, Fri ch MINI-BAG 12/12/20 at 1400, 50 mL
Reas on for Anti-Infec tive: Empiric Therapy for Suspected Infection< br>Empiric Therapy Site: Urine
D uration of therapy: 72 hours carvediloL 2020-0 Yes 25mg Take 25 mg U nivers 25 mg 3-26 by mouth 2 ity of tablet 18:38: (two) [place] [address] times Medical daily with Branch meals. busPIRone 2020-0 Yes 30mg Take 30 mg Un igor 30 mg 3-26 by mouth 2 ity of tablet 18:38: (two) [place] [address] times Medical daily. Branch benazepriL 0 Yes 10mg Take 10 mg U nivers 10 mg 3-26 by mouth ity of tablet 18:38: daily. [address] hydroCHLORO 2020-0 Yes 25mg Take 25 mg Univers thiazide 25 3-26 by mouth ity of mg tablet 18:38: daily. [address] carvediloL 2020-0 Yes 25mg Take 25 mg U nivers 25 mg 3-26 by mouth 2 ity of tablet 18:38: (two) [place] [address] times Medical daily with Branch meals. busPIRone 2020-0 Yes 30mg Take 30 mg Un igor 30 mg 3-26 by mouth 2 ity of tablet 18:38: (two) [place] [address] times Medical daily. Branch benazepriL 2020-0 Yes 10mg Take 10 mg U nivers 10 mg 3-26 by mouth ity of tablet 18:38: daily. [address] hydroCHLORO 2021-0 Yes 25mg Take 25 mg Univers thiazide 25 3-26 by mouth ity of mg tablet 18:38: daily. [address] carvediloL 2021-0 Yes 25mg Take 25 [...] by mouth ity of tablet 18:38: daily. [address] hydroCHLORO 1-0 Yes 25mg Take 25 mg Univers thiazide 25 3-26 by mouth ity of mg tablet 18:38: daily. [address] carvediloL 2020-0 Yes 25mg Take 25 [...] by mouth ity of tablet 18:38: daily. [address] hydroCHLORO 1-0 Yes 25mg Take 25 mg Univers thiazide 25 3-26 by mouth ity of mg tablet 18:38: daily. [address] carvediloL 2021-0 Yes 25mg Take 25 mg U nivers 25 mg 3-26 by mouth 2 ity of tablet 18:38: (two) [place] [address] times Medical daily with Branch meals. busPIRone 2021-0 Yes 30mg Take 30 mg Un igor 30 mg 3-26 by mouth 2 ity of tablet 18:38: (two) [place] 04 times Medical daily. Branch benazepriL 2021-0 Yes 10mg Take 10 mg U nivers 10 mg 3-26 by mouth ity of tablet 18:38: daily. [address] hydroCHLORO 2021-0 Yes 25mg Take 25 mg Univers thiazide 25 3-26 by mouth ity of mg tablet 18:38: daily. [address] carvediloL 2020-0 Yes 25mg Take 25 [...] by mouth ity of tablet 18:38: daily. [address] hydroCHLORO 2020-0 Yes 25mg Take 25 mg Univers thiazide 25 3-26 by mouth ity of mg tablet 18:38: daily. [address] carvediloL 2020-0 Yes 25mg Take 25 mg U nivers 25 mg 3-26 by mouth 2 ity of tablet 18:38: (two) [place] [address] times Medical daily with Branch meals. busPIRone 1-0 Yes 30mg Take 30 mg Un igor 30 mg 3-26 by mouth 2 ity of tablet 18:38: (two) [place] 04 times Medical daily. Branch benazepriL 2020-0 Yes 10mg Take 10 mg U nivers 10 mg 3-26 by mouth ity of tablet 18:38: daily. [address] hydroCHLORO 2020-0 Yes 25mg Take 25 mg Univers thiazide 25 3-26 by mouth ity of mg tablet 18:38: daily. [address] carvediloL 2020-0 Yes 25mg Take 25 mg U nivers 25 mg 3-26 by mouth 2 ity of tablet 18:38: (two) [place] 04 times Medical daily with Branch meals. busPIRone 2021-0 Yes 30mg Take 30 mg Un igor 30 mg 3-26 by mouth 2 ity of tablet 18:38: (two) [place] 04 times Medical daily. Branch benazepriL 2021-0 Yes 10mg Take 10 mg U nivers 10 mg 3-26 by mouth ity of tablet 18:38: daily. [address] hydroCHLORO 1-0 Yes 25mg Take 25 mg Univers thiazide 25 3-26 by mouth ity of mg tablet 18:38: daily. [address] carvediloL 2021-0 Yes 25mg Take 25 mg U nivers 25 mg 3-26 by mouth 2 ity of tablet 18:38: (two) [place] [address] times Medical daily with Branch meals. busPIRone 2021-0 Yes 30mg Take 30 mg Un igor 30 mg 3-26 by mouth 2 ity of tablet 18:38: (two) [place] times Medical daily. Branch benazepriL 2021-0 Yes 10mg Take 10 mg U nivers 10 mg 3-26 by mouth ity of tablet 18:38: daily. [address] hydroCHLORO 2021-0 Yes 25mg Take 25 mg Univers thiazide 25 3-26 by mouth ity of mg tablet 18:38: daily. [address] carvediloL 2021-0 Yes 25mg Take 25 mg U nivers 25 mg 3-26 by mouth 2 ity of tablet 18:38: (two) [place] [address] times Medical daily with Branch meals. busPIRone 2021-0 Yes 30mg Take 30 mg Un igor 30 mg 3-26 by mouth 2 ity of tablet 18:38: (two) [place] [address] times Medical daily. Branch benazepriL 2021-0 Yes 10mg Take 10 mg U nivers 10 mg 3-26 by mouth ity of tablet 18:38: daily. [address] hydroCHLORO 2021-0 Yes 25mg Take 25 mg Univers thiazide 25 3-26 by mouth ity of mg tablet 18:38: daily. [address] carvediloL 2021-0 Yes 25mg Take 25 mg U nivers 25 mg 3-26 by mouth 2 ity of tablet 18:38: (two) [place] [address] times Medical daily with Branch meals. busPIRone 2021-0 Yes 30mg Take 30 mg Un igor 30 mg 3-26 by mouth 2 ity of tablet 18:38: (two) [place] times Medical daily. Branch benazepriL 2021-0 Yes 10mg Take 10 mg U nivers 10 mg 3-26 by mouth ity of tablet 18:38: daily. [address] hydroCHLORO 2021-0 Yes 25mg Take 25 mg Univers thiazide 25 3-26 by mouth ity of mg tablet 18:38: daily. [address] carvediloL 1-0 Yes 25mg Take 25 mg U nivers 25 mg 3-26 by mouth 2 ity of tablet 18:38: (two) [place] [address] times Medical daily with Branch meals. busPIRone 2021-0 Yes 30mg Take 30 mg Un igor 30 mg 3-26 by mouth 2 ity of tablet 18:38: (two) [place] [address] times Medical daily. Branch benazepriL 1-0 Yes 10mg Take 10 mg U nivers 10 mg 3-26 by mouth ity of tablet 18:38: daily. [address] hydroCHLORO 1-0 Yes 25mg Take 25 mg Univers thiazide 25 3-26 by mouth ity of mg tablet 18:38: daily. [address] carvediloL 1-0 Yes 25mg Take 25 mg U nivers 25 mg 3-26 by mouth 2 ity of tablet 18:38: (two) [place] [address] times Medical daily with Branch meals. busPIRone 1-0 Yes 30mg Take 30 mg [place] 30 mg 3-26 by mouth 2 ity of tablet 18:38: (two) [place] [address] times Medical daily. Branch benazepriL 1-0 Yes 10mg Take 10 mg U nivers 10 mg 3-26 by mouth ity of tablet 18:38: daily. [address] hydroCHLORO 2020-0 Yes 25mg Take 25 mg Univers thiazide 25 3-26 by mouth ity of mg tablet 18:38: daily. [address] carvediloL 1-0 Yes 25mg Take 25 mg U nivers 25 mg 3-26 by mouth 2 ity of tablet 18:38: (two) [place] [address] times Medical daily with Branch meals. busPIRone 2021-0 Yes 30mg Take 30 mg [place] 30 mg 3-26 by mouth 2 ity of tablet 18:38: (two) [place] [address] times Medical daily. Branch benazepriL 2021-0 Yes 10mg Take 10 mg U nivers 10 mg 3-26 by mouth ity of tablet 18:38: daily. [address] hydroCHLORO 1-0 Yes 25mg Take 25 mg Univers thiazide 25 3-26 by mouth ity of mg tablet 18:38: daily. [address] carvediloL 2021-0 Yes 25mg Take 25 mg U nivers 25 mg 12-12 by mouth 2 ity of tablet 18:38: (two) [place] 04 times Medical daily with Branch meals. busPIRone Yes 30mg Take 30 mg Un igor 30 mg 12-12 by mouth 2 ity of tablet 18:38: (two) [place] 04 times Medical daily. Branch benazepriL Yes 10mg Take 10 mg U nivers 10 mg 12-12 by mouth ity of tablet 18:38: daily. [address] hydroCHLORO Yes 25mg Take 25 mg Univers thiazide 25 - by mouth ity of mg tablet 18:38: daily. [address] iohexol 2020- No [id number] 120mL 120 mL, Univers (OMNIPAQUE 12-12 Intravenou it y of 350 17:30: 17:21 s, ONCE, 1 [place] BULK-150 00 :00 dose, Fri Medica l mL) 12/12/20 at [facility] injection 1230, 120 mL Routine aspirin 81 2020- No 81mg Take 81 mg Univers mg EC 12-12 by mouth ity of tablet 16:57: 00:00 daily. [place] 40 :00 [facility] Branch varenicline 2020- No 1mg Take 1 mg Univers (CHANTIX) 1 12-12 by mouth 2 i ty of mg tablet 16:57: 00:00 (two) [place] 18 :00 times Medical daily. Branch predniSONE 2020- No 20mg Take 20 mg Univers 20 mg 12-12 by mouth ity of tablet 16:57: 00:00 daily. [place] 12 :00 [facility] Branch fluticasone 2020- No 1{puff} Inhale 1 Univers -umeclidin- 12-12 Puff ity of vilanter 16:56: 00:00 daily. [place] (TRELEGY 46 :00 Medical ELLIPTA) Branch 100-62.5-25 mcg DsDv cefpodoxime Yes [id number] 100mg Take 1 Univers 100 mg 12-12 tablet by ity of tablet 00:00: mouth 2 [place] 00 (two) Medical times Branch daily. cefpodoxime 2021-0 Yes [id number] 100mg Take 1 Univers 100 mg 3-26 tablet by ity of tablet 00:00: mouth (two) Medical times Branch daily. cefpodoxime 2021-0 Yes [id number] 100mg Take 1 Univers 100 mg 3-26 tablet by ity of tablet 00:00: mouth (two) Medical times Branch daily. cefpodoxime 2021-0 Yes [id number] 100mg Take 1 Univers 100 mg 3-26 tablet by ity of tablet 00:00: mouth (two) Medical times Branch daily. cefpodoxime 2021-0 Yes [id number] 100mg Take 1 Univers 100 mg 3-26 tablet by ity of tablet 00:00: mouth (two) Medical times Branch daily. cefpodoxime 2021-0 Yes [id number] 100mg Take 1 Univers 100 mg 3-26 tablet by ity of tablet 00:00: mouth (two) Medical times Branch daily. cefpodoxime 2021-0 Yes [id number] 100mg Take 1 Univers 100 mg 3-26 tablet by ity of tablet 00:00: mouth [place] (two) Medical times Branch daily. cefpodoxime 2021-0 Yes [id number] 100mg Take 1 Univers 100 mg 3-26 tablet by ity of tablet 00:00: mouth [place] (two) Medical times Branch daily. cefpodoxime 2021-0 Yes [id number] 100mg Take 1 Univers 100 mg 3-26 tablet by ity of tablet 00:00: mouth [place] (two) Medical times Branch daily. cefpodoxime 2021-0 Yes [id number] 100mg Take 1 Univers 100 mg 3-26 tablet by ity of tablet 00:00: mouth (two) Medical times Branch daily. cefpodoxime 2021-0 Yes [id number] 100mg Take 1 Univers 100 mg 3-26 tablet by ity of tablet 00:00: mouth [place] (two) Medical times Branch daily. cefpodoxime 2021-0 Yes [id number] 100mg Take 1 Univers 100 mg 3-26 tablet by ity of tablet 00:00: mouth [place] (two) Medical times Branch daily. cefpodoxime 2021-0 Yes [id number] 100mg Take 1 Univers 100 mg 3-26 tablet by ity of tablet 00:00: mouth 2 [place] 00 (two) Medical times Branch daily. cefpodoxime 2020-0 Yes [id number] 100mg Take 1 Univers 100 mg 3-26 tablet by ity of tablet 00:00: mouth 2 [place] 00 (two) Medical times Branch daily. cefpodoxime 2020-0 Yes [id number] 100mg Take 1 Univers 100 mg 3-26 tablet by ity of tablet 00:00: mouth 2 [place] 00 (two) Medical times Branch daily. cefpodoxime 2020-0 3- No [id number] 100mg Take 1 Univers 100 mg 3-26 - tablet by ity of tablet 00:00: 00:00 mouth 2 [place] 00 :00 (two) Medical times Branch daily. cefpodoxime 2020-0 1- No [id number] 100mg Take 1 Univers 100 mg 3-26 - tablet by ity of tablet 00:00: 00:00 mouth 2 [place] 00 :00 (two) Medical times Branch daily for 7 days. XARELTO 15 2020-0 Yes Univers mg tablet 1-28 ity of 00:00: [place] Medical Branch XARELTO 15 2020-0 Yes Univers mg tablet -28 ity of 00:00: [place] [facility] Branch XARELTO 15 2020-0 Yes Univers mg tablet -28 ity of 00:00: [place] [facility] Branch XARELTO 15 2020-0 Yes Univers mg tablet -28 ity of 00:00: [place] [facility] XARELTO 15 2020-0 Yes Univers mg tablet -28 ity of 00:00: [place] [facility] XARELTO 15 2020-0 Yes Univers mg tablet -28 ity of 00:00: [place] [facility] Branch XARELTO 15 2020-0 Yes Univers mg tablet -28 ity of 00:00: [place] [facility] Branch XARELTO 15 2020-0 Yes Univers mg tablet -28 ity of 00:00: [place] [facility] Branch XARELTO 15 2020-0 Yes Univers mg tablet -28 ity of 00:00: [place] [facility] XARELTO 15 2020-0 Yes [facility] mg tablet -28 ity of 00:00: [place] [facility] XARELTO 15 2020-0 Yes [facility] mg tablet -28 ity of 00:00: [place] 00 [facility] XARELTO 15 2020-0 Yes [facility] mg tablet 10-16 ity of 00:00: [place] 00 [facility] XARELTO 15 2020-0 Yes [facility] mg tablet 10-16 ity of 00:00: [place] 00 [facility] XARELTO 15 2020-0 Yes [facility] mg tablet 10-16 ity of 00:00: [place] 00 [facility] XARELTO 15 2020-0 Yes [facility] mg tablet 10-16 ity of 00:00: [place] 00 [facility] XARELTO 15 2020-0 Yes [facility] mg tablet 10-16 ity of 00:00: [place] 00 [facility] XARELTO 15 2020-0 Yes [facility] mg tablet 10-16 ity of 00:00: [place] 00 [facility] XARELTO 15 2020-0 Yes Univers mg tablet 10-16 ity of 00:00: [place] [address] Medical Branch XARELTO 15 2020-0 Yes Univers mg tablet 10-16 ity of 00:00: [place] 00 [facility] XARELTO 15 2020-0 Yes [facility] mg tablet 10-16 ity of 00:00: [place] [address] Medical Branch XARELTO 15 2020-0 Yes [facility] mg tablet 10-16 ity of 00:00: [place] [address] Medical Branch XARELTO 15 2020-0 Yes Univers mg tablet 10-16 ity of 00:00: [place] [address] Medical Branch XARELTO 15 2020-0 Yes Univers mg tablet 10-16 ity of 00:00: [place] [address] Medical Branch XARELTO 15 2020-0 2023- No Univer s mg tablet 10-16-12 ity of 00:00: 00:00 [place] 00 :00 [facility] Branch omeprazole 2019- Yes 40mg Take 40 mg U nivers 40 mg 2-10 by mouth ity of capsule 00:11: daily. [address] omeprazole 2018- Yes 40mg Take 40 mg U nivers 40 mg 2-10 by mouth ity of capsule 00:11: daily. [address] varenicline 2018- Yes 1mg Take 1 mg U nivers (CHANTIX) 1 2-10 by mouth 2 it y of mg tablet 00:11: (two) [place] [address] times Medical daily. Branch predniSONE 2018-09 Yes 20mg Take 20 mg U nivers 20 mg 2-10 by mouth ity of tablet 00:11: daily. [address] omeprazole 2018-09 Yes 40mg Take 40 mg U nivers 40 mg 2-10 by mouth ity of capsule 00:11: daily. [address] fluticasone 2018-09 Yes 1{puff} Inhale 1 Univers -umeclidin- 2-10 Puff ity of vilanter 00:11: daily. [address]) Branch 100-62.5-25 mcg DsDv aspirin 81 2018-09 Yes 81mg Take 81 mg U nivers mg EC 2-10 by mouth ity of tablet 00:11: daily. [address] varenicline 2018-09 Yes 1mg Take 1 mg U nivers (CHANTIX) 1 2-10 by mouth 2 it y of mg tablet 00:11: (two) [address] daily. Branch predniSONE 2018-09 Yes 20mg Take 20 mg U nivers 20 mg 2-10 by mouth ity of tablet 00:11: daily. [address] omeprazole 2018-09 Yes 40mg Take 40 mg U nivers 40 mg 2-10 by mouth ity of capsule 00:11: daily. [address] fluticasone 2018-09 Yes 1{puff} Inhale 1 Univers -umeclidin- 2-10 Puff ity of vilanter 00:11: daily. [address]) Branch 100-62.5-25 mcg DsDv aspirin 81 2018-09 Yes 81mg Take 81 mg U nivers mg EC 2-10 by mouth ity of tablet 00:11: daily. [address] varenicline 2018- Yes 1mg Take 1 mg U nivers (CHANTIX) 1 2-10 by mouth 2 it y of mg tablet 00:11: (two) [address] daily. Branch predniSONE 2018- Yes 20mg Take 20 mg U nivers 20 mg 2-10 by mouth ity of tablet 00:11: daily. [address] omeprazole 2018- Yes 40mg Take 40 mg U nivers 40 mg 2-10 by mouth ity of capsule 00:11: daily. [address] fluticasone 2018- Yes 1{puff} Inhale 1 Univers -umeclidin- 2-10 Puff ity of vilanter 00:11: daily. [address]) Branch 100-62.5-25 mcg DsDv aspirin 81 2018-09 Yes 81mg Take 81 mg U nivers mg EC 2-10 by mouth ity of tablet 00:11: daily. [address] varenicline 2018-09 Yes 1mg Take 1 mg U nivers (CHANTIX) 1 2-10 by mouth 2 it y of mg tablet 00:11: (two) [address] daily. Branch predniSONE 2018-09 Yes 20mg Take 20 mg U nivers 20 mg 2-10 by mouth ity of tablet 00:11: daily. [address] omeprazole 2018-09 Yes 40mg Take 40 mg U nivers 40 mg 2-10 by mouth ity of capsule 00:11: daily. [address] fluticasone 2018-09 Yes 1{puff} Inhale 1 Univers -umeclidin- 2-10 Puff ity of vilanter 00:11: daily. [address]) Branch 10062.5-25 mcg DsDv aspirin 81 2018-09 Yes 81mg Take 81 mg U nivers mg EC 2-10 by mouth ity of tablet 00:11: daily. [address] varenicline 2018-09 Yes 1mg Take 1 mg U nivers (CHANTIX) 1 2-10 by mouth 2 it y of mg tablet 00:11: (two) [address] daily. Branch predniSONE 2018-09 Yes 20mg Take 20 mg U nivers 20 mg 2-10 by mouth ity of tablet 00:11: daily. [address] omeprazole 2018-09 Yes 40mg Take 40 mg U nivers 40 mg 2-10 by mouth ity of capsule 00:11: daily. [address] fluticasone 2018-09 Yes 1{puff} Inhale 1 Univers -umeclidin- 2-10 Puff ity of vilanter 00:11: daily. [address]) Branch 100-62.5-25 mcg DsDv aspirin 81 2018-09 Yes 81mg Take 81 mg U nivers mg EC 2-10 by mouth ity of tablet 00:11: daily. [address] varenicline 2018-09 Yes 1mg Take 1 mg U nivers (CHANTIX) 1 2-10 by mouth 2 it y of mg tablet 00:11: (two) [place] [address] times Medical daily. Branch predniSONE 2018- Yes 20mg Take 20 mg U nivers 20 mg 2-10 by mouth ity of tablet 00:11: daily. [place] [address] Medical Branch omeprazole 2018- Yes 40mg Take 40 mg U nivers 40 mg 2-10 by mouth ity of capsule 00:11: daily. [address] Branch fluticasone 2018- Yes 1{puff} Inhale 1 Univers -umeclidin- 2-10 Puff ity of vilanter 00:11: daily. [place] ([place] [address] Medical ELLIP) Branch 100-62.5-25 mcg DsDv aspirin 81 2018- Yes 81mg Take 81 mg U nivers mg EC 2-10 by mouth ity of tablet 00:11: daily. [address] Branch omeprazole 2018-09 Yes 40mg Take 40 mg U nivers 40 mg 2-10 by mouth ity of capsule 00:11: daily. [address] omeprazole 2018- Yes 40mg Take 40 mg U nivers 40 mg 2-10 by mouth ity of capsule 00:11: daily. [address] omeprazole 2018- Yes 40mg Take 40 mg U nivers 40 mg 2-10 by mouth ity of capsule 00:11: daily. [address] omeprazole 2018- Yes 40mg Take 40 mg U nivers 40 mg 2-10 by mouth ity of capsule 00:11: daily. [address] omeprazole 2018- Yes 40mg Take 40 mg U nivers 40 mg 2-10 by mouth ity of capsule 00:11: daily. [address] omeprazole 2018- Yes 40mg Take 40 mg U nivers 40 mg 2-10 by mouth ity of capsule 00:11: daily. [address] omeprazole 2018- Yes 40mg Take 40 mg U nivers 40 mg 2-10 by mouth ity of capsule 00:11: daily. [address] omeprazole 2018- Yes 40mg Take 40 mg U nivers 40 mg 2-10 by mouth ity of capsule 00:11: daily. [address] omeprazole 2018- Yes 40mg Take 40 mg U nivers 40 mg 2-10 by mouth ity of capsule 00:11: daily. [address] omeprazole 2018-09 Yes 40mg Take 40 mg U nivers 40 mg 2-10 by mouth ity of capsule 00:11: daily. [address] Branch omeprazole 2018-09 Yes 40mg Take 40 mg U nivers 40 mg 2-10 by mouth ity of capsule 00:11: daily. [address] omeprazole 2018-09 Yes 40mg Take 40 mg U nivers 40 mg 2-10 by mouth ity of capsule 00:11: daily. [address] omeprazole 2018-09 Yes 40mg Take 40 mg U nivers 40 mg 2-10 by mouth ity of capsule 00:11: daily. [address] Branch KCL 20 mEq 2018-09 Yes [id number] 40meq Take 2 Univers tablet 2-09 tablets by ity of 00:00: mouth [place] 00 daily. Medical Branch KCL 20 mEq 2018-09 Yes [id number] 40meq Take 2 Univers tablet 2-09 tablets by ity of 00:00: mouth [place] 00 daily. Medical Branch atorvastati 2018-09 Yes [id number] 20mg Take 1 Univers n 20 mg 2-09 tablet by ity of tablet 00:00: mouth at [place] 00 bedtime. Medical Branch metoprolol 2018-09 Yes [id number] 50mg Take 1 Univers succinate 2-09 tablet by ity o f XL 50 mg 24 00:00: mouth 2 [place] hr tablet 00 (two) Medical times Branch daily. furosemide 2018-09 Yes [id number] 40mg Take 1 Univers 40 mg 2-09 tablet by ity of tablet 00:00: mouth [place] 00 every Medical morning Branch and evening. KCL 20 mEq 2018-09 Yes [id number] 40meq Take 2 Univers tablet 2-09 tablets by ity of 00:00: mouth [place] 00 daily. Medical Branch atorvastati 2018-09 Yes [id number] 20mg Take 1 Univers n 20 mg 2-09 tablet by ity of tablet 00:00: mouth at [place] 00 bedtime. Medical Branch metoprolol 2018-09 Yes [id number] 50mg Take 1 [facility] succinate 2-09 tablet by ity o f XL 50 mg 24 00:00: mouth 2 [place] hr tablet 00 (two) Medical times Branch daily. furosemide 2018-09 Yes [id number] 40mg Take 1 [facility] 40 mg 2-09 tablet by ity of tablet 00:00: mouth [place] 00 every Medical morning Branch and evening. KCL 20 mEq 2018-09 Yes [id number] 40meq Take 2 Univers tablet 2-09 tablets by ity of 00:00: mouth [place] 00 daily. Medical Branch atorvastati 2018-09 Yes [id number] 20mg Take 1 Univers n 20 mg 2-09 tablet by ity of tablet 00:00: mouth at [place] 00 bedtime. Medical Branch metoprolol 2018-09 Yes [id number] 50mg Take 1 Univers succinate 2-09 tablet by ity o f XL 50 mg 24 00:00: mouth 2 [place] hr tablet 00 (two) Medical times Branch daily. furosemide 2018-09 Yes [id number] 40mg Take 1 Univers 40 mg 2-09 tablet by ity of tablet 00:00: mouth [place] 00 every Medical morning Branch and evening. KCL 20 mEq 2018-09 Yes [id number] 40meq Take 2 Univers tablet 2-09 tablets by ity of 00:00: mouth [place] 00 daily. Medical Branch atorvastati 2018-09 Yes [id number] 20mg Take 1 Univers n 20 mg 2-09 tablet by ity of tablet 00:00: mouth at [place] 00 bedtime. Medical Branch metoprolol 2018-09 Yes [id number] 50mg Take 1 [facility] succinate 2-09 tablet by ity o f XL 50 mg 24 00:00: mouth 2 [place] hr tablet 00 (two) Medical times Branch daily. furosemide 2018-09 Yes [id number] 40mg Take 1 [facility] 40 mg 2-09 tablet by ity of tablet 00:00: mouth [place] 00 every Medical morning Branch and evening. KCL 20 mEq 2018-09 Yes [id number] 40meq Take 2 Univers tablet 2-09 tablets by ity of 00:00: mouth [place] 00 daily. Medical Branch atorvastati 2018-09 Yes [id number] 20mg Take 1 Univers n 20 mg 2-09 tablet by ity of tablet 00:00: mouth at [place] 00 bedtime. Medical Branch metoprolol 2018-09 Yes [id number] 50mg Take 1 [facility] succinate 2-09 tablet by ity o f XL 50 mg 24 00:00: mouth 2 [place] hr tablet 00 (two) Medical times Branch daily. furosemide 2018-09 Yes [id number] 40mg Take 1 Univers 40 mg 2-09 tablet by ity of tablet 00:00: mouth [place] 00 every Medical morning Branch and evening. KCL 20 mEq 2018-09 Yes [id number] 40meq Take 2 Univers tablet 2-09 tablets by ity of 00:00: mouth [place] 00 daily. Medical Branch atorvastati 2018-09 Yes [id number] 20mg Take 1 Univers n 20 mg 2-09 tablet by ity of tablet 00:00: mouth at [place] 00 bedtime. Medical Branch metoprolol 2018-09 Yes [id number] 50mg Take 1 Univers succinate 2-09 tablet by ity o f XL 50 mg 24 00:00: mouth 2 [place] hr tablet 00 (two) Medical times Branch daily. furosemide 2018-09 Yes [id number] 40mg Take 1 Univers 40 mg 2-09 tablet by ity of tablet 00:00: mouth [place] 00 every Medical morning Branch and evening. KCL 20 mEq 2018-09 Yes [id number] 40meq Take 2 Univers tablet 2-09 tablets by ity of 00:00: mouth [place] 00 daily. Medical Branch KCL 20 mEq 2018-09 Yes [id number] 40meq Take 2 Univers tablet 2-09 tablets by ity of 00:00: mouth [place] 00 daily. Medical Branch KCL 20 mEq 2018-09 Yes [id number] 40meq Take 2 Univers tablet 2-09 tablets by ity of 00:00: mouth [place] 00 daily. Medical Branch KCL 20 mEq 2018-09 Yes [id number] 40meq Take 2 Univers tablet 2-09 tablets by ity of 00:00: mouth [place] 00 daily. Medical Branch KCL 20 mEq 2018-09 Yes [id number] 40meq Take 2 Univers tablet 2-09 tablets by ity of 00:00: mouth [place] 00 daily. Medical Branch KCL 20 mEq 2018-09 Yes [id number] 40meq Take 2 Univers tablet 2-09 tablets by ity of 00:00: mouth [place] 00 daily. Medical Branch KCL 20 mEq 2018-09 Yes [id number] 40meq Take 2 Univers tablet 2-09 tablets by ity of 00:00: mouth [place] 00 daily. Medical Branch KCL 20 mEq 2018-09 Yes [id number] 40meq Take 2 Univers tablet 2-09 tablets by ity of 00:00: mouth [place] 00 daily. Medical Branch KCL 20 mEq 2018-09 Yes [id number] 40meq Take 2 Univers tablet 2-09 tablets by ity of 00:00: mouth [place] 00 daily. Medical Branch KCL 20 mEq 2018-09 Yes [id number] 40meq Take 2 Univers tablet 2-09 tablets by ity of 00:00: mouth [place] 00 daily. Medical Branch KCL 20 mEq 2018-09 Yes [id number] 40meq Take 2 Univers tablet 2-09 tablets by ity of 00:00: mouth [place] 00 daily. Medical Branch KCL 20 mEq 2018-09 Yes [id number] 40meq Take 2 Univers tablet 2-09 tablets by ity of 00:00: mouth [place] 00 daily. Medical Branch KCL 20 mEq 2018-09 Yes [id number] 40meq Take 2 Univers tablet 2-09 tablets by ity of 00:00: mouth [place] 00 daily. Medical Branch KCL 20 mEq 2018-09 Yes [id number] 40meq Take 2 Univers tablet 2-09 tablets by ity of 00:00: mouth [place] 00 daily. Medical Branch KCL 20 mEq 2018-09 Yes [id number] 40meq Take 2 Univers tablet 2-09 tablets by ity of 00:00: mouth [place] 00 daily. Medical Branch KCL 20 mEq 2018-09 Yes [id number] 40meq Take 2 Univers tablet 2-09 tablets by ity of 00:00: mouth [place] 00 daily. Medical Branch KCL 20 mEq 2018-09 Yes [id number] 40meq Take 2 Univers tablet 2-09 tablets by ity of 00:00: mouth [place] 00 daily. Medical Branch KCL 20 mEq 2018-09 Yes [id number] 40meq Take 2 Univers tablet 2-09 tablets by ity of 00:00: mouth [place] 00 daily. Medical Branch KCL 20 mEq 2018-09 Yes [id number] 40meq Take 2 Univers tablet 2-09 tablets by ity of 00:00: mouth [place] 00 daily. Medical Branch KCL 20 mEq 2018-09- No [id number] 40meq Take 2 Univers tablet 2-09 03-12 tablets by ity of 00:00: 00:00 mouth [place] 00 :00 daily. Medical Branch atorvastati 2018-09- No [id number] 20mg Take 1 Univers n 20 mg 2-05 22-26 tablet by ity of tablet 00:00: 00:00 mouth at [place] 00 :00 bedtime. Medical Branch metoprolol 2018-09- No [id number] 50mg Take 1 [facility] succinate 2-09 03-26 tablet by ity of XL 50 mg 24 00:00: 00:00 mouth 2 [place] hr tablet 00 :00 (two) Medical times Branch daily. furosemide 2018-09- No [id number] 40mg Take 1 Univers 40 mg 10-28 [...] Until mL Discontinu ed, Routine ibuprofen Yes [id number] 600mg Take 1 U nivers 600 mg 5-31 tablet by ity of tablet 00:00: mouth [place] 00 every 8 Medical (eight) Branch hours as needed (PAIN). ibuprofen Yes [id number] 600mg Take 1 U nivers 600 mg 5-31 tablet by ity of tablet 00:00: mouth [place] 00 every 8 Medical (eight) Branch hours as needed (pain). ibuprofen 2018- No [id number] 600mg Take 1 Univers 600 mg 5-31 08-15 tablet by ity of tablet 00:00: 00:00 mouth [place] 00 :00 every 8 Medical (eight) Branch hours as needed (PAIN). ibuprofen 2018- No [id number] 600mg Take 1 Univers 600 mg 5-31 08-15 tablet by ity of tablet 00:00: 00:00 mouth [place] 00 :00 every 8 Medical (eight) Branch hours as needed (pain). magnesium Yes 400mg Take 1 Tab U nivers oxide 2-23 by mouth 3 ity of (MAG-OX 00:00: (three) [place] 400) 400 mg 00 times Medical tablet daily. Branch enalapril Yes [id number] 2.5mg Take 1 Tab Univers (VASOTEC) 2-23 [...] s tablet 00 Medical Branch furosemide Yes [id number] 40mg Take 1 Tab Univers (LASIX) 40 2-23 by mouth 2 ity of mg tablet 00:00: (two) [place] 00 times Medical daily. Branch metoprolol Yes 100mg Take 1 Tab Univers succinate 2-23 by mouth ity of XL (TOPROL 00:00: daily. [place] XL) 100 mg 00 Medical 24 hr Branch tablet magnesium 2019- No 400mg Take 1 Tab Univers oxide - 08-15 by mouth 3 ity of (MAG-OX 00:00: 00:00 (three) [place] 400) 400 mg 00 :00 times Medical tablet daily. Branch enalapril 2019- No [id number] 2.5mg Take 1 Tab Univers (VASOTEC) 2- [...] 20meq Take 1 Tab Unive rs (KLOR-CON 2- 08-15 by mouth ity o f M20) 20 mEq 00:00: 00:00 daily. [place] tablet 00 :00 Medical Branch furosemide 2019- No [id number] 40mg Take 1 Tab Univers (LASIX) 40 2- 08-15 by mouth 2 it y of mg tablet 00:00: 00:00 (two) [place] 00 :00 times Medical daily. Branch metoprolol 2019- No 100mg Take 1 Tab Univers succinate 2-23 08-15 by mouth ity o f XL (TOPROL 00:00: 00:00 [place]. [place] XL) 100 mg 00 :00 Medical 24 hr Branch tablet aspirin 81 2013- Yes 81mg Take 1 Tab U nivers [...] by mouth ity of tablet 00:00: daily. [place] [facility] ipratropium 2013-09 Yes .5mg Inhale [...] by mouth ity of tablet 00:00: daily. [place] [facility] ipratropium 2013-09 Yes .5mg Inhale [...] by mouth ity of tablet 00:00: daily. [place] [facility] ipratropium 2013-09 Yes .5mg Inhale [...] by mouth ity of tablet 00:00: daily. [place] [facility] ipratropium 2013-09 Yes .5mg Inhale [...] by mouth ity of tablet 00:00: daily. [place] [facility] ipratropium 2013-09 Yes .5mg Inhale [...] by mouth ity of tablet 00:00: daily. [place] [facility] ipratropium 2013-09 Yes .5mg Inhale [...] by mouth ity of tablet 00:00: daily. [place] [facility] ipratropium 2013-09 Yes .5mg Inhale [...] by mouth ity of tablet 00:00: daily. [place] [facility] ipratropium 2013-09 Yes .5mg Inhale [...] by mouth ity of tablet 00:00: daily. [place] [facility] ipratropium 2013-09 Yes .5mg Inhale [...] by mouth ity of tablet 00:00: daily. [place] [facility] ipratropium 2013-09 Yes .5mg Inhale [...] by mouth ity of tablet 00:00: daily. [place] [facility] ipratropium 2013-09 Yes .5mg Inhale [...] by mouth ity of tablet 00:00: daily. [place] [facility] ipratropium 2013-09 Yes .5mg Inhale [...] by mouth ity of tablet 00:00: daily. [place] [facility] ipratropium 2013-09 Yes .5mg Inhale [...] by mouth ity of tablet 00:00: daily. [place] [facility] ipratropium 2013-09 Yes .5mg Inhale [...] by mouth ity of tablet 00:00: daily. [place] [facility] ipratropium 2013-09 Yes .5mg Inhale [...] by mouth ity of tablet 00:00: daily. [place] [facility] ipratropium 2013-09 Yes .5mg Inhale [...] by mouth ity of tablet 00:00: daily. [place] [facility] ipratropium 2013-09 Yes .5mg Inhale [...] 81mg Take 1 Tab Univers mg chewable 11-05 by mouth ity of tablet 00:00: 00:00 daily. [place] 00 :00 Medical Branch ipratropium 2013-09- No .5mg Inhale 2.5 Univers (ATROVENT) 11-05 mL 4 ity of 0.02 % 00:00: 00:00 (four) [place] nebulizer 00 :00 times Medical solution daily. Branch levalbutero 2013-09- No .31mg Inhale Un igor l (XOPENEX) 11-05 0.31 mg 3 it y of 0.31 mg/3 00:00: 00:00 (three) [place] 00 :00 times Medical nebulizer daily. Branch solution Immunizations Ordered Filled Immunization Date Status Comments [facility] e Immunization Name Name Pneumococcal 20 2022-12-12 Completed Universit y of Conjugate, PCV20 00:00:00 [facility] dical (Prevnar 20) Branch Pneumococcal 20 2022-12-12 Completed Universit y of Conjugate, PCV20 00:00:00 [facility] dical (Prevnar 20) Branch Pneumococcal 20 2022-12-12 Completed Universit y of Conjugate, PCV20 00:00:00 [facility] dical (Prevnar 20) Branch Pneumococcal 20 2022-12-12 Completed Universit y of Conjugate, PCV20 00:00:00 [facility] dical (Prevnar 20) Branch Pneumococcal 20 2022-12-12 Completed Universit y of Conjugate, PCV20 00:00:00 [facility] dical (Prevnar 20) Branch Pneumococcal 20 2022-12-12 Completed Universit y of Conjugate, PCV20 00:00:00 [facility] dical (Prevnar 20) Branch Pneumococcal 20 2022-12-12 Completed Universit y of Conjugate, PCV20 00:00:00 [facility] dical (Prevnar 20) Branch Pneumococcal 20 2022-12-12 Completed Universit y of Conjugate, PCV20 00:00:00 [facility] dical (Prevnar 20) Branch Pneumococcal 20 2022-12-12 Completed Universit y of Conjugate, PCV20 00:00:00 [facility] dical (Prevnar 20) Branch Pneumococcal 20 2022-12-12 Completed Universit y of Conjugate, PCV20 00:00:00 [place] [facility] (Prevnar 20) Branch Pneumococcal 20 2022-12-12 Completed Universit y of Conjugate, PCV20 00:00:00 [place] [facility]ical (Prevnar 20) Branch Pneumococcal 20 2022-12-12 Completed Universit y of Conjugate, PCV20 00:00:00 [place] [facility]ical (Prevnar 20) Branch Pneumococcal 20 2022-12-12 Completed Universit y of Conjugate, PCV20 00:00:00 [facility] dical (Prevnar 20) Branch Pneumococcal 20 2022-12-12 Completed Universit y of Conjugate, PCV20 00:00:00 [place] [facility] dical (Prevnar 20) Branch Pneumococcal 20 2022-12-12 Completed Universit y of Conjugate, PCV20 00:00:00 [facility] dical (Prevnar 20) Branch Pneumococcal 20 2022-12-12 Completed Universit y of Conjugate, PCV20 00:00:00 [facility] dical (Prevnar 20) Branch Pneumococcal 20 2022-12-12 Completed Universit y of Conjugate, PCV20 00:00:00 [facility] dical (Prevnar 20) Branch Pneumococcal 20 2022-12-12 Completed Universit y of Conjugate, PCV20 00:00:00 [facility] dical (Prevnar 20) Branch Pneumococcal 20 2022-12-12 Completed Universit y of Conjugate, PCV20 00:00:00 [facility] dical (Prevnar 20) Branch Pneumococcal 20 2022-12-12 Completed Universit y of Conjugate, PCV20 00:00:00 [facility] dical (Prevnar 20) Branch Pneumococcal 20 2022-12-12 Completed Universit y of Conjugate, PCV20 00:00:00 [place] [facility] dical (Prevnar 20) Branch Pneumococcal 20 2022-12-12 Completed Universit y of Conjugate, PCV20 00:00:00 [facility] dical (Prevnar 20) Branch Pneumococcal 20 2022-12-12 Completed Universit y of Conjugate, PCV20 00:00:00 [place] [facility] dical (Prevnar 20) Branch Pneumococcal 20 2022-12-12 Completed Universit y of Conjugate, PCV20 00:00:00 [facility] dical (Prevnar 20) Branch Pneumococcal 20 2022-12-12 Completed Universit y of Conjugate, PCV20 00:00:00 [facility] dical (Prevnar 20) Branch Pneumococcal 20 2022-12-12 [...] 00:00:00 [place] [facility] dical (Prevnar 20) Branch SARS-COV-2 COVID-19 2020-11-23 [...] rsity of MODERNA 12+ YRS 00:00:00 [place] [facility] ical VACCINE Branch SARS-COV-2 COVID-19 2020-10-26 Completed Unive rsity of MODERNA 12+ YRS 00:00:00 [facility] ical VACCINE Branch Td 2019-02-16 Completed University of 00:00:00 [place] [facility] TD, NOS 2019-02-16 Completed University of 00:00:00 [place] [facility] TD, NOS 2019-02-16 Completed University of 00:00:00 [place] [facility] TD, NOS 2019-02-16 Completed University of 00:00:00 [place] [facility] TD, NOS 2019-02-16 Completed University of 00:00:00 [place] [facility] TD, NOS 2019-02-16 Completed University of 00:00:00 [place] [facility] Td 2019-02-16 Completed University of 00:00:00 [place] [facility] TD, NOS 2019-02-16 Completed University of 00:00:00 [place] [facility] TD, NOS 2019-02-16 Completed University of 00:00:00 [place] [facility] TD, NOS 2019-02-16 Completed University of 00:00:00 [place] [facility] TD, NOS 2019-02-16 Completed University of 00:00:00 [place] [facility] TD, NOS 2019-02-16 Completed University [...] TD, NOS 2019-02-16 Completed University of 00:00:00 [facility] TD, NOS 2019-02-16 Completed University of 00:00:00 [facility] TD, NOS 2019-02-16 Completed University of 00:00:00 [facility] Pneumococcal 2014-09-05 Completed University o f Polysaccharide, 00:00:00 [place] [facility] ical PPSV23 (PNEUMOVAX) Branch Influenza Virus 2014-09-05 Completed Universit y of Vaccine Quad IM 3+ 00:00:00 [facility] Pneumococcal 2014-09-05 Completed University o f Polysaccharide, 00:00:00 [place] Med ical PPSV23 (PNEUMOVAX) Branch Influenza Virus 2014-09-05 Completed Universit y of Vaccine Quad IM 3+ 00:00:00 [facility] Pneumococcal 2014-09-05 Completed University o f Polysaccharide, 00:00:00 [place] [facility] ical PPSV23 (PNEUMOVAX) Branch Influenza Virus 2014-09-05 Completed Universit y of Vaccine Quad IM 3+ 00:00:00 [facility] Pneumococcal 2014-09-05 Completed University o f Polysaccharide, 00:00:00 [place] [facility] ical PPSV23 (PNEUMOVAX) Branch Influenza Virus 2014-09-05 Completed Universit y of Vaccine Quad IM 3+ 00:00:00 [facility] Pneumococcal 2014-09-05 Completed University o f Polysaccharide, 00:00:00 [place] [facility] ical PPSV23 (PNEUMOVAX) Branch Influenza Virus 2014-09-05 Completed Universit y of Vaccine Quad IM 3+ 00:00:00 [facility] Pneumococcal 2014-09-05 Completed University o f Polysaccharide, 00:00:00 [place] [facility] ical PPSV23 (PNEUMOVAX) Branch Influenza Virus 2014-09-05 Completed Universit y of Vaccine Quad IM 3+ 00:00:00 [facility] Pneumococcal 2014-09-05 Completed University o f Polysaccharide, 00:00:00 [place] Med ical PPSV23 (PNEUMOVAX) Branch Influenza Virus 2014-09-05 Completed Universit y of Vaccine Quad [facility] 3+ 00:00:00 [facility] Pneumococcal 2014-09-05 Completed [facility] o f Polysaccharide, 00:00:00 [place] [facility] PPSV23 (PNEUMOVAX) Branch Influenza Virus 2014-09-05 Completed Universit y of Vaccine Quad IM 3+ 00:00:00 [facility] Pneumococcal 2014-09-05 Completed [facility] o f Polysaccharide, 00:00:00 [place] [facility] PPSV23 (PNEUMOVAX) Branch Influenza Virus 2014-09-05 Completed [facility]it y of Vaccine Quad IM 3+ 00:00:00 [facility] Pneumococcal 2014-09-05 Completed [facility] o f Polysaccharide, 00:00:00 [place] [facility] PPSV23 (PNEUMOVAX) Branch Influenza Virus 2014-09-05 Completed [facility]it y of Vaccine Quad IM 3+ 00:00:00 [facility] Pneumococcal 2014-09-05 Completed [facility] o f Polysaccharide, 00:00:00 [place] [facility] PPSV23 (PNEUMOVAX) Branch Influenza Virus 2014-09-05 Completed [facility]it y of Vaccine Quad IM 3+ 00:00:00 [facility] Pneumococcal 2014-09-05 Completed [facility] o f Polysaccharide, 00:00:00 [place] [facility] PPSV23 (PNEUMOVAX) Branch Influenza Virus 2014-09-05 Completed [facility]it y of Vaccine Quad IM 3+ 00:00:00 [facility] Pneumococcal 2014-09-05 Completed [facility] o f Polysaccharide, 00:00:00 [place] [facility] PPSV23 (PNEUMOVAX) Branch Influenza Virus 2014-09-05 Completed [facility]it [facility] of Vaccine Quad IM 3+ 00:00:00 [facility] Influenza Virus 2014-09-05 Completed [facility]it [facility] of Vaccine Quad IM 3+ 00:00:00 [facility] Pneumococcal 2014-09-05 Completed [facility] o f Polysaccharide, 00:00:00 [place] [facility] PPSV23 (PNEUMOVAX) Branch Pneumococcal 2014-09-05 Completed [facility] o f Polysaccharide, 00:00:00 [place] [facility] PPSV23 (PNEUMOVAX) Branch Influenza Virus 2014-09-05 Completed [facility]it [facility] of Vaccine Quad IM 3+ 00:00:00 [facility] Pneumococcal 2014-09-05 Completed [facility] o f Polysaccharide, 00:00:00 [place] [facility] PPSV23 (PNEUMOVAX) Branch Influenza Virus 2014-09-05 Completed [facility]it [facility] of Vaccine Quad IM 3+ 00:00:00 [facility] Pneumococcal 2014-09-05 Completed [facility] o f Polysaccharide, 00:00:00 [place] [facility] PPSV23 (PNEUMOVAX) Branch Influenza Virus 2014-09-05 Completed [facility]it [facility] of Vaccine [facility] IM 3+ 00:00:00 [facility] Pneumococcal 2014-09-05 Completed [facility] o f Polysaccharide, 00:00:00 [place] [facility] PPSV23 (PNEUMOVAX) Branch Influenza Virus 2014-09-05 Completed [facility]it [facility] of Vaccine Quad IM 3+ 00:00:00 [facility] Pneumococcal 2014-09-05 Completed [facility] o f Polysaccharide, 00:00:00 [place] [facility] PPSV23 (PNEUMOVAX) Branch Influenza Virus 2014-09-05 Completed [facility]it [facility] of Vaccine [facility] IM 3+ 00:00:00 [facility] Pneumococcal 2014-09-05 Completed [facility] o f Polysaccharide, 00:00:00 [place] [facility] PPSV23 (PNEUMOVAX) Branch Influenza Virus 2014-09-05 Completed [facility]it [facility] of Vaccine Quad IM 3+ 00:00:00 [facility] Pneumococcal 2014-09-05 Completed [facility] o f Polysaccharide, 00:00:00 [place] [facility] PPSV23 (PNEUMOVAX) Branch Influenza Virus 2014-09-05 Completed [facility]it [facility] of Vaccine [facility] IM 3+ 00:00:00 [facility] Pneumococcal 2014-09-05 Completed [facility] o f Polysaccharide, 00:00:00 [place] [facility] PPSV23 (PNEUMOVAX) Branch Influenza Virus 2014-09-05 Completed [facility] of Vaccine [facility] IM 3+ 00:00:00 [facility] Pneumococcal 2014-09-05 Completed [facility] o f Polysaccharide, 00:00:00 [place] [facility] PPSV23 (PNEUMOVAX) Branch Influenza Virus 2014-09-05 Completed [facility] of Vaccine Quad IM 3+ 00:00:00 [facility] Pneumococcal 2014-09-05 Completed [facility] o f Polysaccharide, 00:00:00 [place] [facility] PPSV23 (PNEUMOVAX) Branch Influenza Virus 2014-09-05 Completed [facility] of Vaccine [facility] IM 3+ 00:00:00 [facility] Pneumococcal 2014-09-05 Completed [facility] o f Polysaccharide, 00:00:00 [place] [facility] PPSV23 (PNEUMOVAX) Branch Influenza Virus 2014-09-05 Completed [facility] of Vaccine [facility] IM 3+ 00:00:00 [facility] Pneumococcal 2014-09-05 Completed [facility] o f Polysaccharide, 00:00:00 [place] [facility] PPSV23 (PNEUMOVAX) Branch Influenza Virus 2014-09-05 Completed [facility]it [facility] of Vaccine [facility] IM 3+ 00:00:00 [facility] Pneumococcal 2014-09-05 Completed [facility] o f Polysaccharide, 00:00:00 [place] [facility] PPSV23 (PNEUMOVAX) Branch Influenza Virus 2014-09-05 Completed [facility]it [facility] of Vaccine [facility] IM 3+ 00:00:00 [facility] Pneumococcal 2014-09-05 Completed [facility] o f Polysaccharide, 00:00:00 [place] [facility] PPSV23 (PNEUMOVAX) Branch Influenza Virus 2014-09-05 Completed [facility]it [facility] of Vaccine [facility] IM 3+ 00:00:00 [facility] Pneumococcal 2014-09-05 Completed [facility] o f Polysaccharide, 00:00:00 [place] [facility] PPSV23 (PNEUMOVAX) Branch Influenza Virus 2014-09-05 Completed [facility]it [facility] of Vaccine [facility] IM 3+ 00:00:00 [facility] Pneumococcal 2014-09-05 Completed [facility] o f Polysaccharide, 00:00:00 [place] [facility] PPSV23 (PNEUMOVAX) Branch Influenza Virus 2014-09-05 Completed [facility]it [facility] of Vaccine [facility] IM 3+ 00:00:00 [facility] Pneumococcal 2014-09-05 Completed [facility] o f Polysaccharide, 00:00:00 [place] [facility] PPSV23 (PNEUMOVAX) Branch Influenza Virus 2014-09-05 Completed [facility] of Vaccine Quad IM 3+ 00:00:00 [facility] Influenza Virus 2014-09-05 Completed [facility]it [facility] of Vaccine Quad IM 3+ 00:00:00 [facility] Pneumococcal 2014-09-05 Completed [facility] o f Polysaccharide, 00:00:00 [place] [facility] PPSV23 (PNEUMOVAX) Branch Pneumococcal 2014-09-05 Completed [facility] o f Polysaccharide, 00:00:00 [place] [facility] PPSV23 (PNEUMOVAX) Branch Influenza Virus 2014-09-05 Completed [facility]it [facility] of Vaccine [facility] IM 3+ 00:00:00 [facility] Pneumococcal 2014-09-05 Completed [facility] o f Polysaccharide, 00:00:00 [place] [facility] PPSV23 (PNEUMOVAX) Branch Influenza Virus 2014-09-05 Completed [facility] of Vaccine [facility] IM 3+ 00:00:00 [facility] Pneumococcal 2014-09-05 Completed [facility] o f Polysaccharide, 00:00:00 [place] [facility] PPSV23 (PNEUMOVAX) Branch Influenza Virus 2014-09-05 Completed [facility] of Vaccine [facility] IM 3+ 00:00:00 [facility] Pneumococcal 2014-09-05 Completed [facility] o f Polysaccharide, 00:00:00 [place] [facility] PPSV23 (PNEUMOVAX) Branch Influenza Virus 2014-09-05 Completed [facility] of Vaccine [facility] IM 3+ 00:00:00 [facility] Pneumococcal 2014-09-05 Completed [facility] o f Polysaccharide, 00:00:00 [place] [facility] PPSV23 (PNEUMOVAX) Branch Influenza Virus 2014-09-05 Completed [facility]it [facility] of Vaccine [facility] IM 3+ 00:00:00 [facility] Pneumococcal 2014-09-05 Completed [facility] o f Polysaccharide, 00:00:00 [place] [facility] PPSV23 (PNEUMOVAX) Branch Influenza Virus 2014-09-05 Completed [facility]it [facility] of Vaccine [facility] IM 3+ 00:00:00 [facility] Pneumococcal 2014-09-05 Completed [facility] o f Polysaccharide, 00:00:00 [place] [facility] PPSV23 (PNEUMOVAX) Branch Influenza Virus 2014-09-05 Completed [facility] of Vaccine [facility] IM 3+ 00:00:00 [facility] Pneumococcal 2014-09-05 Completed [facility] o f Polysaccharide, 00:00:00 [place] [facility] PPSV23 (PNEUMOVAX) Branch Influenza Virus 2014-09-05 Completed [facility] of Vaccine [facility] IM 3+ 00:00:00 [facility] Pneumococcal 2014-09-05 Completed [facility] o f Polysaccharide, 00:00:00 [place] [facility] PPSV23 (PNEUMOVAX) Branch Influenza Virus 2014-09-05 Completed [facility] of Vaccine [facility] IM 3+ 00:00:00 [facility] Pneumococcal 2014-09-05 Completed [facility] o f Polysaccharide, 00:00:00 [place] [facility] PPSV23 (PNEUMOVAX) Branch Influenza Virus 2014-09-05 Completed [facility]it [facility] of Vaccine [facility] IM 3+ 00:00:00 [facility] Pneumococcal 2014-09-05 Completed [facility] o f Polysaccharide, 00:00:00 [place] [facility] PPSV23 (PNEUMOVAX) Branch Influenza Virus 2014-09-05 Completed [facility] of Vaccine [facility] IM 3+ 00:00:00 [facility] Pneumococcal 2014-09-05 Completed [facility] o f Polysaccharide, 00:00:00 [place] [facility] PPSV23 (PNEUMOVAX) Branch Influenza Virus 2014-09-05 Completed [facility]it [facility] of Vaccine Quad IM 3+ 00:00:00 [facility] Pneumococcal 2014-09-05 Completed [facility] o f Polysaccharide, 00:00:00 [place] [facility] PPSV23 (PNEUMOVAX) Branch Influenza Virus 2014-09-05 Completed [facility]it [facility] of Vaccine [facility] IM 3+ 00:00:00 [facility] Pneumococcal 2014-09-05 Completed [facility] o f Polysaccharide, 00:00:00 [place] [facility] PPSV23 (PNEUMOVAX) Branch Influenza Virus 2014-09-05 Completed [facility]it [facility] of Vaccine [facility] IM 3+ 00:00:00 [facility] Pneumococcal 2014-09-05 Completed [facility] o f Polysaccharide, 00:00:00 [place] [facility] PPSV23 (PNEUMOVAX) Branch Influenza Virus 2014-09-05 Completed [facility]it [facility] of Vaccine Quad IM 3+ 00:00:00 [facility] Pneumococcal 2014-09-05 Completed [facility] o f Polysaccharide, 00:00:00 [place] [facility] PPSV23 (PNEUMOVAX) Branch Influenza Virus 2014-09-05 Completed [facility]it [facility] of Vaccine Quad IM 3+ 00:00:00 [facility] Pneumococcal 2014-09-05 Completed [facility] o f Polysaccharide, 00:00:00 [place] [facility] PPSV23 (PNEUMOVAX) Branch Influenza Virus 2014-09-05 Completed [facility]it [facility] of Vaccine Quad IM 3+ 00:00:00 [facility] Pneumococcal 2014-09-05 Completed [facility] o f Polysaccharide, 00:00:00 [place] [facility] PPSV23 (PNEUMOVAX) Branch Influenza Virus 2014-09-05 Completed [facility]it [facility] of Vaccine Quad IM 3+ 00:00:00 [facility] Pneumococcal 2014-09-05 Completed [facility] o f Polysaccharide, 00:00:00 [place] [facility] PPSV23 (PNEUMOVAX) Branch Influenza Virus 2014-09-05 Completed [facility]it y of Vaccine [facility] IM 3+ 00:00:00 [facility] Pneumococcal 2014-09-05 Completed [facility] o f Polysaccharide, 00:00:00 [place] [facility] PPSV23 (PNEUMOVAX) Branch Influenza Virus 2014-09-05 Completed [facility]it [facility] of Vaccine [facility] IM 3+ 00:00:00 [facility] Pneumococcal 2014-09-05 Completed [facility] o f Polysaccharide, 00:00:00 [place] [facility] PPSV23 (PNEUMOVAX) Branch Influenza Virus 2014-09-05 Completed [facility]it y of Vaccine Quad IM 3+ 00:00:00 [facility] Pneumococcal 2014-09-05 Completed [facility] o f Polysaccharide, 00:00:00 [place] [facility] PPSV23 (PNEUMOVAX) Branch Influenza Virus 2014-09-05 Completed [facility]it [facility] of Vaccine Quad IM 3+ 00:00:00 [facility] Pneumococcal 2014-09-05 Completed [facility] o f Polysaccharide, 00:00:00 [place] [facility] PPSV23 (PNEUMOVAX) Branch Influenza Virus 2014-09-05 Completed [facility]it [facility] of Vaccine Quad IM 3+ 00:00:00 [facility] Pneumococcal 2014-09-05 Completed [facility] o f Polysaccharide, 00:00:00 [place] [facility] PPSV23 (PNEUMOVAX) Branch Influenza Virus 2014-09-05 Completed [facility]it [facility] of Vaccine Quad IM 3+ 00:00:00 [facility] Pneumococcal 2014-09-05 Completed [facility] o f Polysaccharide, 00:00:00 [place] [facility] PPSV23 (PNEUMOVAX) Branch Influenza Virus 2014-09-05 Completed [facility]it [facility] of Vaccine Quad IM 3+ 00:00:00 [facility] Pneumococcal 2014-09-05 Completed [facility] o f Polysaccharide, 00:00:00 [place] [facility] PPSV23 (PNEUMOVAX) Branch Influenza Virus 2014-09-05 Completed [facility]it [facility] of Vaccine Quad IM 3+ 00:00:00 [facility] Pneumococcal 2014-09-05 Completed [facility] o f Polysaccharide, 00:00:00 [place] [facility] PPSV23 (PNEUMOVAX) Branch Influenza Virus 2014-09-05 Completed [facility]it y of Vaccine Quad IM 3+ 00:00:00 [facility] Pneumococcal 2014-09-05 Completed [facility] o f Polysaccharide, 00:00:00 [place] [facility] PPSV23 (PNEUMOVAX) Branch Influenza Virus 2014-09-05 Completed [facility]it y of Vaccine Quad IM 3+ 00:00:00 [facility] Pneumococcal 2014-09-05 Completed [facility] o f Polysaccharide, 00:00:00 [place] [facility] PPSV23 (PNEUMOVAX) Branch Influenza Virus 2014-09-05 Completed [facility]it y of Vaccine Quad IM 3+ 00:00:00 [facility] Pneumococcal 2014-09-05 Completed [facility] o f Polysaccharide, 00:00:00 [place] [facility] PPSV23 (PNEUMOVAX) Branch Influenza Virus 2014-09-05 Completed [facility]it y of Vaccine Quad IM 3+ 00:00:00 [facility] Pneumococcal 2014-09-05 Completed [facility] o f Polysaccharide, 00:00:00 [place] [facility] PPSV23 (PNEUMOVAX) Branch Influenza Virus 2014-09-05 Completed [facility]it y of Vaccine Quad IM 3+ 00:00:00 [facility] Pneumococcal 2014-09-05 Completed [facility] o f Polysaccharide, 00:00:00 [place] [facility] PPSV23 (PNEUMOVAX) Branch Influenza Virus 2014-09-05 Completed [facility]it y of Vaccine Quad IM 3+ 00:00:00 [facility] Pneumococcal 2014-09-05 Completed [facility] o f Polysaccharide, 00:00:00 [place] [facility] PPSV23 (PNEUMOVAX) Branch Influenza Virus 2014-09-05 Completed [facility]it y of Vaccine Quad IM 3+ 00:00:00 [facility] Pneumococcal 2014-09-05 Completed [facility] o f Polysaccharide, 00:00:00 [place] [facility] PPSV23 (PNEUMOVAX) Branch Influenza Virus 2014-09-05 Completed [facility]it y of Vaccine Quad IM 3+ 00:00:00 [facility] Influenza Virus 2014-09-05 Completed [facility]it y of Vaccine Quad IM 3+ 00:00:00 [facility] Pneumococcal 2014-09-05 Completed [facility] o f Polysaccharide, 00:00:00 [place] [facility] PPSV23 (PNEUMOVAX) Branch Pneumococcal 2014-09-05 Completed [facility] o f Polysaccharide, 00:00:00 [place] [facility] PPSV23 (PNEUMOVAX) Branch Influenza Virus 2014-09-05 Completed [facility]it y of Vaccine Quad IM 3+ 00:00:00 [facility] Pneumococcal 2014-09-05 Completed [facility] o f Polysaccharide, 00:00:00 [place] [facility] PPSV23 (PNEUMOVAX) Branch Influenza Virus 2014-09-05 Completed [facility]it y of Vaccine Quad IM 3+ 00:00:00 [facility] Pneumococcal 2014-09-05 Completed [facility] o f Polysaccharide, 00:00:00 [place] [facility] PPSV23 (PNEUMOVAX) Branch Influenza Virus 2014-09-05 Completed [facility]it y of Vaccine Quad IM 3+ 00:00:00 [facility] Pneumococcal 2014-09-05 Completed [facility] o f Polysaccharide, 00:00:00 [place] [facility] PPSV23 (PNEUMOVAX) Branch Influenza Virus 2014-09-05 Completed [facility]it y of Vaccine Quad IM 3+ 00:00:00 [facility] Vital Signs Vital Name Observation Time Observation Value Comments Source Systolic blood 2023-04-19 126 mm[Hg] University of pressure 15:37:00 [facility] Diastolic blood 2023-04-19 83 mm[Hg] University o f pressure 15:37:00 [facility] Heart rate 2023-04-19 94 /min University of 15:37:00 [facility] Respiratory rate 2023-04-19 18 /min University of 15:35:00 [facility] Body height 2023-04-19 177.8 cm University of 15:35:00 [facility] Body weight 2023-04-19 59.138 kg University of 15:35:00 [facility] BMI 2023-04-19 18.71 kg/m2 University of 15:35:00 [facility] Oxygen saturation 2023-04-19 94 /min University of in Arterial blood 15:35:00 [facility] lucho by Pulse oximetry Branch Systolic blood 2023-03-01 143 mm[Hg] University of pressure 20:27:00 [facility] Diastolic blood 2023-03-01 87 mm[Hg] University o f pressure 20:27:00 [facility] Heart rate 2023-03-01 99 /min University of 20:27:00 [facility] Body height 2023-03-01 177.8 cm University of 20:27:00 [facility] Body weight 2023-03-01 57.153 kg University of 20:27:00 [facility] BMI 2023-03-01 18.08 kg/m2 University of 20:27:00 [facility] Oxygen saturation 2023-03-01 99 /min University of in Arterial blood 20:27:00 [facility] lucho by Pulse oximetry Branch Systolic blood 2023-02-18 144 mm[Hg] University of pressure 16:17:00 [facility] Diastolic blood 2023-02-18 68 mm[Hg] University o f pressure 16:17:00 [facility] Heart rate 2023-02-18 55 /min University of 16:17:00 [facility] Body temperature 2023-02-18 36.06 Tia University of 16:17:00 [facility] Respiratory rate 2023-02-18 18 /min University of 16:17:00 [facility] Oxygen saturation 2023-02-18 100 /min University of in Arterial blood 16:17:00 [facility] by Pulse oximetry Branch Body weight 2023-02-18 58.968 kg University of 07:50:00 [facility] BMI 2023-02-18 18.65 kg/m2 University of 07:50:00 [facility] Body height 2023-02-16 177.8 cm University of 00:31:00 [facility] Oxygen saturation 2023-02-07 99 /min [place] of in Arterial blood 19:29:00 [facility] by Pulse oximetry Branch Systolic blood 2023-02-07 103 mm[Hg] University of pressure 19:27:00 [facility] Diastolic blood 2023-02-07 75 mm[Hg] University o f pressure 19:27:00 [facility] Heart rate 2023-02-07 104 /min University of 19:27:00 [facility] Body temperature 2023-02-07 36.39 Tia University of 19:27:00 [facility] Respiratory rate 2023-02-07 22 /min University of 19:27:00 [facility] Body weight 2023-02-07 72.576 kg University of 19:27:00 [facility] BMI 2023-02-07 22.96 kg/m2 University of 19:27:00 [facility] Heart rate 2023-02-05 85 /min University of 20:17:00 [facility] Respiratory rate 2023-02-05 18 /min University of 20:17:00 [facility] Oxygen saturation 2023-02-05 100 /min University of in Arterial blood 20:17:00 [facility] by Pulse oximetry Branch Systolic blood 2023-02-05 98 mm[Hg] University of pressure 19:53:35 [facility] Diastolic blood 2023-02-05 71 mm[Hg] University o f pressure 19:53:35 [facility] Body temperature 2023-02-05 36.5 Tia University of 19:51:00 [facility] Body height 2023-02-05 177.8 cm University of 19:51:00 [facility] Body weight 2023-02-05 72.576 kg University of 19:51:00 [facility] BMI 2023-02-05 22.96 kg/m2 University of 19:51:00 [facility] Heart rate 2023-02-04 76 /min University of 20:31:00 [facility] Respiratory rate 2023-02-04 18 /min University of 20:31:00 [facility] Oxygen saturation 2023-02-04 97 /min University of in Arterial blood 20:31:00 [facility] lucho by Pulse oximetry Branch Systolic blood 2023-02-04 126 mm[Hg] University of pressure 20:15:00 [facility] Diastolic blood 2023-02-04 98 mm[Hg] University o f pressure 20:15:00 [facility] Body temperature 2023-02-04 36.83 Tia University of 20:15:00 [facility] Body weight 2023-02-04 72.576 kg University of 20:15:00 [facility] BMI 2023-02-04 22.96 kg/m2 University of 20:15:00 [facility] Systolic blood 2023-02-03 100 mm[Hg] University of pressure 23:00:00 [facility] Diastolic blood 2023-02-03 65 mm[Hg] University o f pressure 23:00:00 [facility] Heart rate 2023-02-03 115 /min University of 23:00:00 [facility] Respiratory rate 2023-02-03 20 /min University of 23:00:00 [facility] Oxygen saturation 2023-02-03 97 /min University of in Arterial blood 23:00:00 [facility] by Pulse oximetry Branch Body temperature 2023-02-03 36.72 Tia University of 22:44:00 [facility] Body weight 2023-02-03 72.576 kg University of 22:44:00 [facility] BMI 2023-02-03 22.96 kg/m2 University of 22:44:00 [facility] Systolic blood 2023-02-03 128 mm[Hg] University of pressure 20:02:00 [facility] Diastolic blood 2023-02-03 81 mm[Hg] University o f pressure 20:02:00 [facility] Heart rate 2023-02-03 88 /min University of 20:02:00 [facility] Respiratory rate 2023-02-03 25 /min University of 20:02:00 [facility] Oxygen saturation 2023-02-03 94 /min University of in Arterial blood 20:02:00 [place] [facility] by Pulse oximetry Branch Body temperature 2023-02-03 36.61 Tia University of 18:18:00 [facility] Body weight 2023-02-03 72.576 kg University of 17:41:00 [facility] BMI 2023-02-03 22.96 kg/m2 University of 17:41:00 [facility] Heart rate 2023-02-02 107 /min University of 22:49:00 [facility] Respiratory rate 2023-02-02 20 /min University of 22:49:00 [facility] Oxygen saturation 2023-02-02 94 /min University of in Arterial blood 22:49:00 [facility] by Pulse oximetry Branch Systolic blood 2023-02-02 102 mm[Hg] University of pressure 22:32:00 [facility] Diastolic blood 2023-02-02 74 mm[Hg] University o f pressure 22:32:00 [facility] Body temperature 2023-02-02 35.83 Tia University of 21:58:32 [facility] Body height 2023-02-02 177.8 cm University of 21:54:00 [facility] Body weight 2023-02-02 72.576 kg University of 21:54:00 [facility] BMI 2023-02-02 22.96 kg/m2 University of 21:54:00 [facility] Systolic blood 2023-01-31 140 mm[Hg] University of pressure 21:00:00 [facility] Diastolic blood 2023-01-31 72 mm[Hg] University o f pressure 21:00:00 [facility] Heart rate 2023-01-31 89 /min University of 21:00:00 [facility] Respiratory rate 2023-01-31 20 /min University of 21:00:00 [facility] Oxygen saturation 2023-01-31 97 /min University of in Arterial blood 21:00:00 [facility] by Pulse oximetry Branch Body temperature 2023-01-31 36.72 Tia University of 18:50:00 [facility] Body weight 2023-01-31 72.576 kg University of 18:50:00 [facility] BMI 2023-01-31 22.96 kg/m2 University of 18:50:00 [facility] Systolic blood 2023-01-31 130 mm[Hg] University [facility] pressure 16:09:00 [facility] [facility] Diastolic blood 2023-01-31 72 mm[Hg] [facility] pressure 16:09:00 [facility] Heart rate 2023-01-31 99 /min University of 16:09:00 [facility] Body temperature 2023-01-31 36.39 Tia University [facility] 16:09:00 [facility] Respiratory rate 2023-01-31 18 /min University of 16:09:00 [facility] Body height 2023-01-31 177.8 cm University of 16:09:00 [facility] Body weight 2023-01-31 72.576 kg University of 16:09:00 [facility] BMI 2023-01-31 22.96 kg/m2 University of 16:09:00 [facility] Oxygen saturation 2023-01-31 97 /min University of in Arterial blood 16:09:00 [facility] lucho by Pulse oximetry Branch Systolic blood 2023-01-31 134 mm[Hg] [facility] of pressure 14:50:00 [facility] Diastolic blood 2023-01-31 72 mm[Hg] [facility] pressure 14:50:00 [facility] Heart rate 2023-01-31 85 /min University of 14:50:00 [facility] Body temperature 2023-01-31 36.39 Tia [facility] 14:50:00 [facility] Respiratory rate 2023-01-31 20 /min [facility] of 14:50:00 [facility] Body weight 2023-01-31 72.576 kg University of 14:50:00 [facility] BMI 2023-01-31 22.96 kg/m2 University of 14:50:00 [facility] Oxygen saturation 2023-01-31 100 /min University of in Arterial blood 14:50:00 [facility] lucho by Pulse oximetry Branch Respiratory rate 2023-01-29 20 /min University of 13:40:00 [facility] Oxygen saturation 2023-01-29 100 /min University of in Arterial blood 13:40:00 [facility] lucho by Pulse oximetry Branch Systolic blood 2023-01-29 123 mm[Hg] [facility] pressure 13:06:00 [facility] Diastolic blood 2023-01-29 76 mm[Hg] [facility] pressure 13:06:00 [facility] Heart rate 2023-01-29 97 /min [facility] of 13:06:00 [facility] Body temperature 2023-01-29 36.61 Tia University [facility] 13:06:00 [facility] Body height 2023-01-29 177.8 cm University of 13:06:00 [facility] Body weight 2023-01-29 72.576 kg University of 13:06:00 [facility] BMI 2023-01-29 22.96 kg/m2 University of 13:06:00 [facility] Systolic blood 2023-01-27 115 mm[Hg] [facility] of pressure 11:47:00 [facility] Diastolic blood 2023-01-27 75 mm[Hg] [facility] pressure 11:47:00 [facility] Heart rate 2023-01-27 100 /min University of 11:47:00 [facility] Body temperature 2023-01-27 35.78 Tia University [facility] 11:47:00 [facility] Respiratory rate 2023-01-27 28 /min University of 11:47:00 [facility] Oxygen saturation 2023-01-27 99 /min [place] of in Arterial blood 11:47:00 [facility] by Pulse oximetry Branch Body height 2023-01-27 177.8 cm University of 09:57:00 [facility] Body weight 2023-01-27 72.576 kg University of 09:57:00 [facility] BMI 2023-01-27 22.96 kg/m2 University of 09:57:00 [facility] Heart rate 2023-01-24 88 /min University of 20:55:00 [facility] Oxygen saturation 2023-01-24 93 /min University of in Arterial blood 20:55:00 [facility] by Pulse oximetry Branch Respiratory rate 2023-01-24 22 /min University of 20:52:00 [facility] Systolic blood 2023-01-24 128 mm[Hg] [facility] pressure 20:30:00 [facility] Diastolic blood 2023-01-24 69 mm[Hg] [facility] pressure 20:30:00 [facility] Body temperature 2023-01-24 36.67 Tia [facility] 17:24:00 [facility] Body height 2023-01-24 177.8 cm University of 17:24:00 [facility] Body weight 2023-01-24 72.576 kg University of 17:24:00 [facility] BMI 2023-01-24 22.96 kg/m2 University of 17:24:00 [facility] Systolic blood 2023-01-24 129 mm[Hg] [facility] of pressure 01:00:00 [facility] Diastolic blood 2023-01-24 76 mm[Hg] [facility] pressure 01:00:00 [facility] Heart rate 2023-01-24 77 /min University of 01:00:00 [facility] Respiratory rate 2023-01-24 18 /min University of 01:00:00 [facility] Oxygen saturation 2023-01-24 99 /min [facility] in Arterial blood 01:00:00 [place] [facility] Body temperature 2023-01-24 35.61 Tia warm blankets University of 00:02:00 applied [facility] Body weight 2023-01-24 58.968 kg University of 00:02:00 [facility] BMI 2023-01-24 18.65 kg/m2 University of 00:02:00 [facility] Heart rate 2023-01-22 93 /min University of 23:46:00 [facility] Respiratory rate 2023-01-22 20 /min University of 23:46:00 [facility] Oxygen saturation 2023-01-22 100 /min University of in Arterial blood 23:46:00 [facility] by Pulse oximetry Branch Systolic blood 2023-01-22 146 mm[Hg] [facility] pressure 23:21:00 [facility] Diastolic blood 2023-01-22 93 mm[Hg] [facility] pressure 23:21:00 [facility] Body temperature 2023-01-22 36.72 Tia University of 23:21:00 [facility] Body weight 2023-01-22 58.968 kg University of 23:21:00 [facility] BMI 2023-01-22 18.65 kg/m2 University of 23:21:00 [facility] Heart rate 2023-01-21 84 /min University of 21:57:00 [facility] Respiratory rate 2023-01-21 18 /min University of 21:57:00 [facility] Oxygen saturation 2023-01-21 97 /min University of in Arterial blood 21:57:00 [place] [facility] Systolic blood 2023-01-21 103 mm[Hg] [facility] pressure 21:00:00 [facility] Diastolic blood 2023-01-21 61 mm[Hg] [facility] pressure 21:00:00 [facility] Body temperature 2023-01-21 36.56 Tia University of 19:24:00 [facility] Body weight 2023-01-21 58.968 kg University of 19:24:00 [facility] BMI 2023-01-21 18.65 kg/m2 University of 19:24:00 [facility] Systolic blood 2023-01-19 111 mm[Hg] [facility] pressure 21:00:00 [facility] Diastolic blood 2023-01-19 64 mm[Hg] [facility] pressure 21:00:00 [facility] Heart rate 2023-01-19 85 /min University of 21:00:00 [facility] Body temperature 2023-01-19 36.56 Tia University of 21:00:00 [facility] Respiratory rate 2023-01-19 17 /min University of 21:00:00 [facility] Oxygen saturation 2023-01-19 98 /min University of in Arterial blood 21:00:00 [facility] by Pulse oximetry Branch Body height 2023-01-19 177.8 cm University of 06:22:00 [facility] Body weight 2023-01-19 58.968 kg University of 06:22:00 [facility] BMI 2023-01-19 18.65 kg/m2 University of 06:22:00 [facility] Systolic blood 2023-01-17 116 mm[Hg] [facility] pressure 12:05:00 [facility] Diastolic blood 2023-01-17 69 mm[Hg] [facility] pressure 12:05:00 [facility] Heart rate 2023-01-17 100 /min University of 12:05:00 [facility] Respiratory rate 2023-01-17 24 /min [facility] of 12:05:00 [facility] Oxygen saturation 2023-01-17 93 /min [facility] in Arterial blood 12:05:00 [place] [facility] Body temperature 2023-01-17 35.39 Tia University [facility] 10:59:00 [facility] Body height 2023-01-17 177.8 cm University of 10:59:00 [facility] Body weight 2023-01-17 58.968 kg University of 10:59:00 [facility] BMI 2023-01-17 18.65 kg/m2 University of 10:59:00 [facility] Systolic blood 2023-01-07 122 mm[Hg] [facility] pressure 19:38:00 [facility] Diastolic blood 2023-01-07 86 mm[Hg] [facility] pressure 19:38:00 [facility] Heart rate 2023-01-07 110 /min University of 19:38:00 [facility] Respiratory rate 2023-01-07 16 /min University of 19:38:00 [facility] Body height 2023-01-07 177.8 cm University of 19:38:00 [facility] Body weight 2023-01-07 59.966 kg University of 19:38:00 [facility] BMI 2023-01-07 18.97 kg/m2 University of 19:38:00 [facility] Systolic blood 2022-12-26 118 mm[Hg] [facility] of pressure 18:00:00 [facility] Diastolic blood 2022-12-26 79 mm[Hg] [facility] pressure 18:00:00 [facility] Heart rate 2022-12-26 93 /min University of 18:00:00 [facility] Respiratory rate 2022-12-26 20 /min University of 18:00:00 [facility] Oxygen saturation 2022-12-26 95 /min [facility] of in Arterial blood 18:00:00 [facility] by Pulse oximetry Branch Body temperature 2022-12-26 36.11 Tia University of 15:49:00 [facility] Body height 2022-12-26 177.8 cm University of 15:49:00 [facility] Body weight 2022-12-26 72.576 kg University of 15:49:00 [facility] BMI 2022-12-26 22.96 kg/m2 University of 15:49:00 [facility] Respiratory rate 2022-12-12 18 /min University of 16:45:00 [facility] Oxygen saturation 2022-12-12 99 /min University of in Arterial blood 16:45:00 [facility] by Pulse oximetry Branch Systolic blood 2022-12-12 135 mm[Hg] [facility] pressure 16:11:00 [facility] Diastolic blood 2022-12-12 80 mm[Hg] [facility] pressure 16:11:00 [facility] Heart rate 2022-12-12 77 /min University of 16:11:00 [facility] Body temperature 2022-12-12 35.89 Tia University [facility] 16:11:00 [facility] Body weight 2022-12-12 65 kg University of 08:50:00 [facility] BMI 2022-12-12 20.56 kg/m2 University of 08:50:00 [facility] Body height 2022-12-11 177.8 cm University of 04:23:00 [facility] Heart rate 2022-12-04 95 /min University of 12:33:00 [facility] Respiratory rate 2022-12-04 17 /min University of 12:33:00 [facility] Oxygen saturation 2022-12-04 98 /min [facility] of in Arterial blood 12:33:00 [place] [facility] P[facility] o[facility] Systolic blood 2022-12-04 125 mm[Hg] [facility] pressure 12:20:00 [facility] Diastolic blood 2022-12-04 74 mm[Hg] [facility] pressure 12:20:00 [facility] Body temperature 2022-12-04 36.61 Tia University of 12:20:00 [facility] Body height 2022-12-02 177.8 cm University of 05:16:00 [facility] Body weight 2022-12-02 72.576 kg University of 05:16:00 [facility] BMI 2022-12-02 22.96 kg/m2 University of 05:16:00 [facility] Systolic blood 2022-12-01 114 mm[Hg] [facility] pressure 13:00:00 [facility] Diastolic blood 2022-12-01 78 mm[Hg] [facility] pressure 13:00:00 [facility] Heart rate 2022-12-01 88 /min [facility] of 13:00:00 [facility] Respiratory rate 2022-12-01 20 /min University of 13:00:00 [facility] Oxygen saturation 2022-12-01 98 /min [facility] of in Arterial blood 13:00:00 [facility] by Pulse oximetry Branch Body temperature 2022-12-01 36.67 Tia University [facility] 10:13:00 [facility] Body height 2022-12-01 177.8 cm University of 10:13:00 [facility] Body weight 2022-12-01 72.576 kg University of 10:13:00 [facility] BMI 2022-12-01 22.96 kg/m2 University of 10:13:00 [facility] Systolic blood 2022-11-28 154 mm[Hg] [facility] pressure 17:00:00 [facility] Diastolic blood 2022-11-28 106 mm[Hg] [facility] pressure 17:00:00 [facility] Heart rate 2022-11-28 87 /min University of 17:00:00 [facility] Respiratory rate 2022-11-28 23 /min [facility] 17:00:00 [facility] Oxygen saturation 2022-11-28 96 /min [facility] of in Arterial blood 17:00:00 [facility] by Pulse oximetry Branch Body temperature 2022-11-28 36.78 Tia University [facility] 16:00:00 [facility] Body weight 2022-11-27 67.132 kg University of 12:00:00 [facility] BMI 2022-11-27 21.24 kg/m2 University of 12:00:00 [facility] Body height 2022-11-27 177.8 cm University of 08:39:00 [facility] Systolic blood 2022-11-19 152 mm[Hg] [facility] pressure 10:48:00 [facility] Diastolic blood 2022-11-19 88 mm[Hg] [facility] pressure 10:48:00 [facility] Heart rate 2022-11-19 92 /min University of 10:48:00 [facility] Respiratory rate 2022-11-19 16 /min University of 10:48:00 [facility] Oxygen saturation 2022-11-19 98 /min [facility] of in Arterial blood 10:48:00 [facility] Pulse oximetry [facility] Body temperature 2022-11-19 36.22 Tia University [facility] 08:20:00 [facility] Body height 2022-11-19 177.8 cm University of 08:20:00 [facility] Body weight 2022-11-19 67.132 kg University of 08:20:00 [facility] BMI 2022-11-19 21.24 kg/m2 University of 08:20:00 [facility] Systolic blood 2022-11-19 152 mm[Hg] [facility] pressure 02:18:57 [facility] Diastolic blood 2022-11-19 91 mm[Hg] [facility] pressure 02:18:57 [facility] Heart rate 2022-11-19 109 /min University of 02:18:57 [facility] Respiratory rate 2022-11-19 22 /min University of 02:18:57 [facility] Oxygen saturation 2022-11-19 95 /min University of in Arterial blood 02:18:57 [facility] by Pulse oximetry Branch Body temperature 2022-11-19 36.78 Tia University of 02:17:11 [facility] Body height 2022-11-19 177.8 cm University of 00:52:00 [facility] Body weight 2022-11-19 67.132 kg University of 00:52:00 [facility] BMI 2022-11-19 21.24 kg/m2 University of 00:52:00 [facility] Heart rate 2022-11-11 75 /min University of 17:35:00 [facility] Respiratory rate 2022-11-11 18 /min University of 17:35:00 [facility] Oxygen saturation 2022-11-11 95 /min [facility] of in Arterial blood 17:35:00 [facility] by Pulse oximetry Branch Systolic blood 2022-11-11 130 mm[Hg] [facility] pressure 17:25:00 [facility] Diastolic blood 2022-11-11 71 mm[Hg] [facility] pressure 17:25:00 [facility] Body temperature 2022-11-11 35.94 Tia University [facility] 17:25:00 [facility] Body weight 2022-11-11 77.52 kg University of 09:34:00 [facility] BMI 2022-11-11 24.52 kg/m2 University of 09:34:00 [facility] Body height 2022-11-09 177.8 cm University of 19:30:00 [facility] Systolic blood 2020-12-29 96 mm[Hg] [facility] of pressure 15:24:00 [facility] Diastolic blood 2020-12-29 66 mm[Hg] [facility] pressure 15:24:00 [facility] Heart rate 2020-12-29 71 /min University of 15:24:00 [facility] Body temperature 2020-12-29 36.33 Tia University of 15:24:00 [facility] Body weight 2020-12-29 72.576 kg University of 15:24:00 [facility] BMI 2020-12-29 22.96 kg/m2 University of 15:24:00 [facility] Oxygen saturation 2020-12-29 95 /min [facility] of in Arterial blood 15:24:00 [facility] by Pulse oximetry Branch Systolic blood 2020-12-18 117 mm[Hg] [facility] pressure 19:07:00 [facility] Diastolic blood 2020-12-18 77 mm[Hg] [facility] pressure 19:07:00 [facility] Heart rate 2020-12-18 77 /min University of 19:07:00 [facility] Body temperature 2020-12-18 36.22 Tia University of 19:07:00 [facility] Respiratory rate 2020-12-18 18 /min University of 19:07:00 [facility] Body height 2020-12-18 177.8 cm University of 19:07:00 [facility] Body weight 2020-12-18 73.211 kg University of 19:07:00 [facility] BMI 2020-12-18 23.16 kg/m2 University of 19:07:00 [facility] Systolic blood 2020-12-12 109 mm[Hg] [facility] pressure 18:00:00 [facility] Diastolic blood 2020-12-12 74 mm[Hg] [facility] pressure 18:00:00 [facility] Heart rate 2020-12-12 78 /min University of 18:00:00 [facility] Respiratory rate 2020-12-12 20 /min University of 18:00:00 [facility] Oxygen saturation 2020-12-12 96 /min [facility] Arterial blood 18:00:00 [facility] by Pulse oximetry [facility] Body temperature 2020-12-12 37.28 Tia University of 16:33:00 [facility] Body height 2020-12-12 177.8 cm University of 16:33:00 [facility] Body weight 2020-12-12 70.308 kg University of 16:33:00 [facility] BMI 2020-12-12 22.24 kg/m2 University of 16:33:00 [facility] Systolic blood 2020-12-08 125 mm[Hg] [facility] of pressure 18:55:00 [facility] Diastolic blood 2020-12-08 82 mm[Hg] [facility] pressure 18:55:00 [facility] Heart rate 2020-12-08 75 /min University of 18:55:00 [facility] Body temperature 2020-12-08 36.56 Tia University of 18:55:00 [facility] Respiratory rate 2020-12-08 16 /min University of 18:55:00 [facility] Body height 2020-12-08 177.8 cm University of 18:55:00 [facility] Body weight 2020-12-08 73.12 kg University of 18:55:00 [facility] BMI 2020-12-08 23.13 kg/m2 University of 18:55:00 [facility] Systolic blood 2019-05-04 127 mm[Hg] [facility] of pressure 04:21:00 [facility] Diastolic blood 2019-05-04 86 mm[Hg] [facility] pressure 04:21:00 [facility] Heart rate 2019-05-04 99 /min University 04:21:00 [facility] Respiratory rate 2019-05-04 26 /min University of 04:21:00 [facility] Body height 2019-05-04 177.8 cm University 04:21:00 [facility] Body weight 2019-05-04 72.576 kg University 04:21:00 [facility] BMI 2019-05-04 22.96 kg/m2 University 04:21:00 [facility] Oxygen saturation 2019-05-04 99 /min [place] of in Arterial blood 04:21:00 [place] [facility] P[facility] Systolic blood 2019-05-04 127 mm[Hg] [facility] of pressure 04:21:00 [facility] Diastolic blood 2019-05-04 86 mm[Hg] [facility] o [facility] pressure 04:21:00 [facility] Heart rate 2019-05-04 99 /min University 04:21:00 [facility] Respiratory rate 2019-05-04 26 /min University 04:21:00 [facility] Body height 2019-05-04 177.8 cm University 04:21:00 [facility] Body weight 2019-05-04 72.576 kg University 04:21:00 [facility] BMI 2019-05-04 22.96 kg/m2 University 04:21:00 [facility] Oxygen saturation 2019-05-04 99 /min [facility] in Arterial blood 04:21:00 [place] [facility] Pulse o[facility] Procedures Procedure Date / Time Performing Clinician Source Performed [id number] 2023-03-15 00:00:00 [facility] CONSENT/REFUSAL FOR 2023-03-01 19:49:30 [facility] Un[facility]igned, [facility] [place] DIAGNOSIS AND TREATMENT Name Medical Branch TRANSTHORACIC ECHO (TTE) 2023-02-16 13:56:56 Dedrick Toth [facility] COMPLETE W/ CONTRAST Medical Bra nch TROPONIN I 2023-02-16 11:32:00 Dedrick Toth [facility] COMP. METABOLIC PANEL 2023-02-16 11:32:00 Dedrick Toth [facility] ([id number]) Medical [facility] CBC WITH DIFF 2023-02-16 11:32:00 Dedrick Toth [facility] N-TERMINAL PRO-BNP 2023-02-16 11:32:00 Dedrick Toth [facility] URINALYSIS 2023-02-15 21:18:00 Francisca Bryant [facility] HB ECG ROUTINE & RHYTHM 2023-02-15 20:15:35 Francisca Bryant [facility] XR CHEST 1 VW 2023-02-15 20:14:30 Francisca Bryant [facility] AC PANEL 21 + LACTIC 2023-02-15 20:02:00 Francisca Bryant [facility] ACID [facility] MAGNESIUM 2023-02-15 20:01:00 [facility] [facility] TROPONIN I 2023-02-15 20:01:00 Francisca Bryant [facility] COMP. METABOLIC PANEL 2023-02-15 20:01:00 Francisca Bryant [facility] ([id number]) [facility] CBC WITH DIFF 2023-02-15 20:01:00 Francisca Bryant [facility] ASSIGNMENT OF BENEFITS 2023-02-07 19:52:07 Doctor Unassigned, No [facility] Name [facility] CONSENT/REFUSAL FOR 2023-02-07 19:51:03 Doctor Unassigned, No [facility] Name [facility] CONSENT/REFUSAL FOR 2023-02-04 19:51:56 Doctor Unassigned, No [facility] TROPONIN I 2023-01-31 20:21:00 Rachael Flowers [facility] COMP. METABOLIC PANEL 2023-01-31 20:21:00 Rachael Flowers [facility] ([id number]) Medical Branch ETHANOL 2023-01-31 20:21:00 Rachael Flowers [facility] CBC WITH DIFF 2023-01-31 20:21:00 Rachael Flowers [facility] N-TERMINAL PRO-BNP 2023-01-31 20:21:00 Rachael Flowers [facility] CONSENT/REFUSAL FOR 2023-01-31 18:39:05 Doctor Unassigned, No [facility] [place] [facility]AT[facility] Name [facility] CONSENT/REFUSAL FOR 2023-01-31 15:54:08 Doctor Unassigned, No [facility] [place] [facility] Name [facility] CONSENT/REFUSAL FOR 2023-01-31 14:29:18 Doctor Unassigned, No [facility] Name [facility] ACUTE CARE VENOUS BLOOD 2023-01-27 10:45:00 Bessie Oswald [facility] GAS [facility] TROPONIN I 2023-01-27 10:16:00 Bessie Oswald [facility] BASIC METABOLIC PANEL 2023-01-27 10:16:00 Bessie Oswald [facility] (NA, K, CL, CO2, Medical Branch GLUCOSE, BUN, CREATININE, CA) CBC WITH DIFF 2023-01-27 10:16:00 Bessie Oswald [facility] N-TERMINAL PRO-BNP 2023-01-27 10:16:00 Bessie Oswald [facility] URINALYSIS 2023-01-24 20:23:00 Stephanie [facility] CT HEAD WO CONTRAST 2023-01-24 19:38:00 Stephanie Almonte [facility] AC ABG + LACTIC ACID 2023-01-24 18:37:00 Stephanie Almonte [facility] AMMONIA, PLASMA 2023-01-24 18:19:00 Stephanie Almonte [facility] RAPID STREP SCREEN FOR 2023-01-24 18:19:00 Stephanie Almonte [facility] GROUP A [facility] COVID-19 (ID NOW RAPID 2023-01-24 18:19:00 Stephanie Almonte [facility] TESTING) [facility] TROPONIN I 2023-01-24 17:52:00 Stephanie Almonte [facility] COMP. METABOLIC PANEL 2023-01-24 17:52:00 Stephanie Almonte [facility] ([id number]) Medical Branch ETHANOL 2023-01-24 17:52:00 Stephanie Almonte [facility] CBC WITH DIFF 2023-01-24 17:52:00 Stephanie Al[facility] N-TERMINAL PRO-BNP 2023-01-24 17:52:00 Stephanie Almonte [facility] COMP. METABOLIC PANEL 2023-01-21 20:58:00 [id number] TROPONIN I 2023-01-21 20:05:00 Singer [facility] CBC WITH DIFF 2023-01-21 20:05:00 [facility] N-TERMINAL PRO-BNP 2023-01-21 20:05[facility]00 [facility] + LACTIC 2023-01-19 08:31:00 Lew [facility] ACID [facility] D-DIMER 2023-01-19 08:17:00 Lew [facility] BASIC METABOLIC PANEL 2023-01-19 08:15:00 Iza Varma [facility] (NA, K, CL, CO2, Medical Branch GLUCOSE, BUN, CREATININE, CA) CBC WITH DIFF 2023-01-19 08:15:00 Iza Varma [facility] N-TERMINAL PRO-BNP 2023-01-19 08:15:00 Lew [facility] EKG-12 LEAD 2023-01-17 12:23:30 Marisol Devlin [facility] XR CHEST 1 VW 2023-01-17 11:25:05 Marisol Devlin [facility] TROPONIN I 2023-01-17 11:04:00 Marisol Devlin [facility] COMP. METABOLIC PANEL 2023-01-17 11:04:00 Marisol Devlin [facility] ([id number]) [facility] CBC WITH DIFF 2023-01-17 11:04:00 Marisol Devlin [facility] N-TERMINAL PRO-BNP 2023-01-17 11:04:00 Marisol Devlin [facility] COMP. METABOLIC PANEL 2022-12-26 17:23:00 Iza Varma [facility] ([id number]) [facility] XR CHEST 1 VW 2022-12-26 16:39:21 [facility] (IMMUNOASSAY) 2022-12-26 16:29:00 Iza Varma [facility] SCREEN URINALYSIS 2022-12-26 16:29:00 Iza Varma [facility] CBC WITH DIFF 2022-12-26 16:28:00 Varma, [facility] MAGNESIUM 2022-12-12 08:55:00 [facility] BASIC METABOLIC PANEL 2022-12-12 08:55:00 [facility] (NA, K, CL, CO2, [facility] GLUCOSE, BUN, CREATININE, CA) LIPID PANEL 2022-12-12 08:55:00 [facility] ([id number])(TOTAL [facility] CHOLESTEROL, TRIGLYCERIDES, HDL) N-TERMINAL PRO-BNP 2022-12-12 08:55:00 Karri [facility] MAGNESIUM 2022-12-11 08:30:00 Dedrick Toth [facility] OSMOLALITY, SERUM OR 2022-12-11 08:30:00 Dedrcik Toth [facility] PLASMA [facility] FREE T4 2022-12-11 08:30:00 Dedrick Toth [facility] BASIC METABOLIC PANEL 2022-12-11 08:30:00 Dedrick Toth [facility] (NA, K, CL, CO2, [facility] GLUCOSE, BUN, CREATININE, CA) CBC WITH DIFF 2022-12-11 08:30:00 Dedrick Toth [facility] N-TERMINAL PRO-BNP 2022-12-11 08:30:00 Dedrick Toth [facility] OSMOLALITY URINE 2022-12-11 03:24:00 Dedrick Toth [facility] SODIUM, URINE RANDOM 2022-12-11 03:24:00 Dedrick Toth [facility] URINALYSIS 2022-12-11 01:15:00 Singer [facility] HB ECG ROUTINE & RHYTHM 2022-12-11 00:38:04 Singer [facility] CT HEAD WO CONTRAST 2022-12-11 00:32:23 Singer Louis [facility] XR CHEST 1 VW 2022-12-11 00:29:20 Singer [facility] TROPONIN I 2022-12-11 00:08:00 Singer [facility] COMP. METABOLIC PANEL 2022-12-11 00:08:00 Singer [facility] ([id number]) [facility] ETHANOL 2022-12-11 00:08:00 Singer [facility] CBC WITH DIFF 2022-12-11 00:08:00 Singer [facility] N-TERMINAL PRO-BNP 2022-12-11 00:08:00 Singer [facility] LACTIC ACID WHOLE BLOOD 2022-12-11 00:03:00 Singer [facility] AUTHORIZATION FOR 2022-12-09 05:01:00 Doctor Unassigned, No [facility] RELEASE OF PHI Name Medical Branch BASIC METABOLIC PANEL 2022-12-04 10:43:00 Ben Clive [facility] (NA, K, CL, CO2, Medical Branch GLUCOSE, BUN, CREATININE, CA) CBC WITH DIFF 2022-12-04 10:43:00 Ben [facility] OSMOLALITY URINE 2022-12-03 17:05:00 Sudhakar De Santiago [facility] SODIUM, URINE RANDOM 2022-12-03 17:05:00 Sudhakar De Santiago [facility] [place] [facility] MAGNESIUM 2022-12-03 10:20:00 [facility] BASIC METABOLIC PANEL 2022-12-03 10:20:00 [facility] (NA, K, CL, CO2, Medical Branch GLUCOSE, BUN, CREATININE, CA) CBC WITH DIFF 2022-12-03 10:20:00 [facility] BASIC METABOLIC PANEL 2022-12-02 05:27:00 Carlo Maki [facility] (NA, K, CL, CO2, Medical Branch GLUCOSE, BUN, CREATININE, CA) CONSENT/REFUSAL FOR 2022-12-02 05:08:30 Doctor Unassigned, No [facility] Name [facility] HOSPITAL ADMISSION 2022-12-02 05:01:00 Doctor Unassigned, No [facility] Name [facility] COVID-19 (ID NOW RAPID 2022-12-01 13:01:00 Ernesto Piper [facility] TESTING) Medical Branch XR CHEST 1 VW 2022-12-01 12:40:25 Marisol Devlin [facility] EKG-12 LEAD 2022-12-01 12:17:26 Marisol Devlin [facility] ACUTE CARE ARTERIAL 2022-12-01 12:06:00 Marisol Devlin [facility] BLOOD GAS Medical Branch TROPONIN I 2022-12-01 11:51:00 Marisol Devlin [facility] BASIC METABOLIC PANEL 2022-12-01 11:51:00 Marisol Devlin [facility] (NA, K, CL, CO2, Medical Branch GLUCOSE, BUN, CREATININE, CA) CBC WITH DIFF 2022-12-01 11:51:00 Marisol Devlin [facility] BASIC METABOLIC PANEL 2022-11-28 16:51:00 Leila Chapa [facility] (NA, K, CL, CO2, Medical Branch GLUCOSE, BUN, CREATININE, CA) URIC ACID 2022-11-28 08:14:00 Reyna [facility] THYROID STIMULATING 2022-11-28 08:14:00 [facility] H[facility]ONE [facility] BASIC METABOLIC PANEL 2022-11-28 08:14:00 Leila Chapa [facility] (NA, K, CL, CO2, Medical Branch GLUCOSE, BUN, CREATININE, CA) CBC WITH DIFF 2022-11-28 08:14:00 María Diaz [facility] BASIC METABOLIC PANEL 2022-11-28 04:16:00 María [...] 09:21:00 María Diaz [facility] OSMOLALITY, SERUM OR 2022-11-27 09:10:00 María Diaz [facility] PLASMA [facility] OSMOLALITY URINE 2022-11-27 09:04:00 María Diaz [facility] BASIC METABOLIC PANEL 2022-11-27 09:04:00 María Diaz [facility] (NA, K, CL, CO2, Medical Branch GLUCOSE, BUN, CREATININE, CA) URINE DRUG (IMMUNOASSAY) 2022-11-27 09:04:00 María Diaz [facility] DRUG [facility] SCREEN URINALYSIS 2022-11-27 09:04:00 María Diaz [facility] CREATININE, URINE RANDOM 2022-11-27 09:04:00 María Diaz [facility] SODIUM, URINE RANDOM 2022-11-27 09:04:00 María Diaz [facility] XR CHEST 1 VW 2022-11-27 06:15:54 Bessie Oswald [facility] MAGNESIUM 2022-11-27 05:33:00 María Diaz [facility] TROPONIN I 2022-11-27 05:33:00 Bessie Oswald [facility] COMP. METABOLIC PANEL 2022-11-27 05:33:00 Bessie Oswald [facility] ([id number]) Medical Branch ETHANOL 2022-11-27 05:33:00 Bessie Oswald [facility] CBC WITH DIFF 2022-11-27 05:33:00 Bessie Oswald [facility] GLYCOSYLATED HEMOGLOBIN 2022-11-27 05:33:00 Leila Chapa [facility] ([id number]) [facility] N-TERMINAL PRO-BNP 2022-11-27 05:33:00 Bessie Oswald [facility] HB ECG ROUTINE & RHYTHM 2022-11-27 05:31:54 Bessie Oswald [facility] STRIP [facility] COMP. METABOLIC PANEL 2022-11-19 08:44:00 Iza Varma [facility] ([id number]) [facility] CBC WITH DIFF 2022-11-19 08:44:00 Iza Varma [facility] N-TERMINAL PRO-BNP 2022-11-19 08:44:00 Iza Varma [facility] BASIC METABOLIC PANEL 2022-11-11 10:52:00 Iza Eden [facility] (NA, K, CL, CO2, Medical Branch GLUCOSE, BUN, CREATININE, CA) CBC WITH DIFF 2022-11-11 10:52:00 Iza Eden [facility] BASIC METABOLIC PANEL 2022-11-11 02:16:00 Guanako [facility] (NA, K, CL, CO2, Medical Branch GLUCOSE, BUN, CREATININE, CA) BASIC METABOLIC PANEL 2022-11-10 22:45:00 Guanako [facility] (NA, K, CL, CO2, Medical Branch GLUCOSE, BUN, CREATININE, CA) BASIC METABOLIC PANEL 2022-11-10 17:27:00 [facility] (NA, K, CL, CO2, Medical Branch GLUCOSE, BUN, CREATININE, CA) BASIC METABOLIC PANEL 2022-11-10 11:49:00 [facility] (NA, K, CL, CO2, Medical Branch GLUCOSE, BUN, CREATININE, CA) MAGNESIUM 2022-11-10 07:14:00 [facility] BASIC METABOLIC PANEL 2022-11-10 07:14:00 [facility] (NA, K, CL, CO2, Medical Branch GLUCOSE, BUN, CREATININE, CA) CBC WITH DIFF 2022-11-10 07:14:00 [facility] XR CHEST 1 VW 2022-11-09 07:53:00 Marisol Devlin [facility] LIPASE 2022-11-09 07:53:00 Marisol Devlin [facility] TROPONIN I 2022-11-09 07:53:00 Marisol Devlin [facility] COMP. METABOLIC PANEL 2022-11-09 07:53:00 Marisol Devlin [facility] ([id number]) [facility] CBC WITH DIFF 2022-11-09 07:53:00 Marsiol Devlin [facility] N-TERMINAL PRO-BNP 2022-11-09 07:53:00 Marisol Devlin [facility] ACUTE CARE ARTERIAL 2022-11-09 07:50:00 Marisol Devlin [facility] BLOOD GAS [facility] HB ECG ROUTINE & RHYTHM 2022-11-09 07:39:47 Mar[facility]lin [facility] ASSIGNMENT OF BENEFITS 2021-05-20 19:26:54 Doctor Unassigned, No [facility] Name [facility] POCT URINALYSIS AUTO 2020-12-18 19:04:00 Gokul [facility] CT ABDOMEN PELVIS W 2020-12-12 17:25:03 Francisca Bryant [facility] BASIC METABOLIC PANEL 2020-12-12 16:47:00 Francisca Bryant [facility] (NA, K, CL, CO2, Medical Branch GLUCOSE, BUN, CREATININE, CA) CBC WITH DIFF 2020-12-12 16:47:00 Francisca Bryant [facility] URINALYSIS 2020-12-12 16:47:00 Francisca Bryant [facility] NOTICE OF PRIVACY 2020-12-12 16:28:57 Doctor Unassigned, No [facility] CONSENT/REFUSAL FOR 2020-12-12 16:28:23 Doctor Unassigned, No [facility] [place] [facility] Name [facility] POCT URINALYSIS AUTO 2020-12-08 18:56:00 Jeanette [facility] CONSENT/REFUSAL FOR 2020-12-08 18:26:17 Doctor Unassigned, No [facility] ASSIGNMENT OF BENEFITS 2020-12-08 18:25:58 Doctor Unassigned, No [facility] AUTHORIZATION FOR 2020-02-20 05:01:00 Doctor Unassigned, No [facility] RELEASE OF [facility] NOTICE OF PRIVACY 2019-05-04 04:10:29 Doctor Unassigned, No [facility] CONSENT/REFUSAL FOR 2019-05-04 04:10:09 Doctor Unassigned, No [facility] [place] [facility] AND TREATMENT [facility] Encounters Start End Encounter Admission Attending Care Care Encounter Source Date/Time Date/Time Type Type Clinicians Facility Department ID 2021-07-19 Emergency [facility] [id number] [facility] 08:46:33 ity of [facility] 2023-04-22 2023-04-22 Outpatient R NOMI MARY [facility] 10 [id number] Univers 00:00:00 00:00:00 NOMI MARY i of [facility] 2023-04-19 2023-04-19 Outpatient R NOMI MARY [facility] 10 [id number] Univers 10:00:00 10:53:24 NOMI MARY i of [facility] 2023-04-19 2023-04-19 Office Mathew [facility] [id number] Univers 10:00:00 10:53:24 Visit Gregtim DERAS [id number] i [id number] [id number] Wy dical NAL 085 [facility] 2023-04-19 2023-04-19 Patient Marika Monge [id number] [id number] Univers 00:00:00 00:00:00 Outreach E SHAIKH [id number] i [id number] [place] [id number] [facility] 403 Branch 2023-03-15 2023-03-19 Inpatient EM Rudy Xiao HCAWU INTE.02 [id number] [facility] 07:16:00 14:47:00 22 [facility] 2023-03-01 2023-03-01 Office Adriano [facility] 1.2.840.114 [id number] Univers 16:30:00 17:00:00 Visit [employer] [id number] it y of [place] 4.2.7.2.686 Nelson as JACKIE?BLEA [id number] [facility] TAVO [address] [employer] 2023-03-01 2023-03-01 Outpatient Manoj [place] [facility] [id number] Univers 16:30:00 16:30:00 HERMINIA ity [facility] 2023-03-01 2023-03-01 Orders Doctor FRIEDMAN 1.2.840.114 [id number] Univers 00:00:00 00:00:00 Only Unassigned, ASHER [id number] ity of [place] [facility] 4.2.7.2.[id number] [facility] 009 [employer] 2023-03-01 2023-03-01 Refill Christa [facility] 1.2.840.114 [id number] Univers 00:00:00 00:00:00 , Mily Quitt.ch [id number] ity of [place] 4.2.7.2.686 Nelson as JACKIE?BLEA [id number] Wy dical KNEY 044 [employer] [facility] 2023-02-21 2023-02-21 Transition GARY Frye 1.2.840.114 [id number] Univers 00:00:00 00:00:00 of Care Taylor SHAIKH [id number] it y of [place] [place] [id number] [facility] 403 Branch 2023-02-15 2023-02-18 Inpatient X RADHA [facility] [id number] Univers 14:41:00 16:11:00 [facility] 2023-02-15 2023-02-18 [facility] Iza Varma [facility] 1.2.840.11 [id number] Univers 14:41:00 16:11:00 Encounter Francisca Bryant 350.1.13 .10 ity of [place]andaMono ganphuc PATHAK 4.2.7.2.[address] [facility] [id number] [facility] 081 Branch 2023-02-07 2023-02-07 Emergency X NORMAN [facility] ERT [id number] Univers 14:30:00 16:01:00 PRADIP judge [facility] 2023-02-07 2023-02-07 [facility] 1.2.840.114 [id number] Univers 14:30:00 16:01:00 Pradip DERAS [id number] ity of [place] 4.2.7.2.686 [facility] s [place] [id number] [facility] 084 Branch 2023-02-07 2023-02-07 Outpatient R CARL ORLANDO [facility] [id number] Univers 10:20:00 10:20:00 CARL ORLANDO [facility] 2023-02-05 2023-02-05 Emergency X MARQUIS [facility] ERT [id number] Univers 14:53:00 16:10:00 HERMINIA judge [facility] 2023-02-05 2023-02-05 Emergency [facility] [id number] Univers 14:53:00 16:10:00 Herminia DERAS [id number] i ty of [place] 4.2.7.2.686 [facility] [id number] [address] 2023-02-04 2023-02-04 Emergency X MANNY, [facility] ERT [id number] Univers 15:26:00 16:25:00 FRANCISCA deepa [facility] 2023-02-04 2023-02-04 [facility] 1.2.840.114 [id number] Univers 15:26:00 16:25:00 Francisca DERAS [id number] [facility] 4.2.7.2.6 [facility] [id number] [address] 2023-02-03 2023-02-03 Emergency X HONG, [facility] ERT [id number] Univers 17:46:00 18:47:00 LOUIS judge [facility] 2023-02-03 2023-02-03 Emergency X , [facility] ERT [id number] Univers 17:46:00 18:47:00 LOUIS deepa [facility] 2023-02-03 2023-02-03 Emergency Hong, [facility] [id number] Univers 17:46:00 18:47:00 Louis DERAS 350.1.13.10 i ty of [place] 4.2.7.[address] [place] [id number] 2023-02-03 2023-02-03 Emergency Darek, [facility] [id number] Univers 12:43:00 15:04:00 Bessie DERAS 350.1.13.10 i ty [facility] 4.2.7.2.[address] [place] [id number] 2023-02-02 2023-02-02 Emergency X HONG, [facility] ERT [id number] Univers 16:49:00 18:10:00 LOUIS deepa [facility] 2023-02-02 2023-02-02 Emergency Hong, [facility] [id number] [id number] Univers 16:49:00 18:10:00 Louis DERAS 350.1.13.10 i ty [facility] 4.2.7.2.686 [facility] [id number] [address] 2023-01-31 2023-01-31 Emergency X KRISTIE, [facility] ERT [id number] Univers 13:55:00 16:50:00 RACHAEL deepa [facility] 2023-01-31 2023-01-31 Emergency X KRISTIE, [facility] ERT [id number] Univers 13:55:00 16:50:00 RACHAEL [facility] 2023-01-31 2023-01-31 Emergency Kristie, [facility] 1.2.840.114 [id number] Univers 13:55:00 16:50:00 Rachael BRAEDEN 350.1.13.10 i ty of [facility] 4.2.7.2.[address] [place] [id number] 2023-01-31 2023-01-31 Emergency X VASUT, [facility] ERT [id number] Univers 11:11:00 12:12:00 LEOBARDO [facility] 2023-01-31 2023-01-31 Emergency [facility] [id number] Univers 11:11:00 12:12:00 Leobardo DERAS 350.1.13.10 i ty of [facility] 4.2.7.2.[address] [place] [id number] 2023-01-31 2023-01-31 Emergency [facility] [id number] Univers 09:51:00 10:16:00 BRAEDEN 350.1.13.10 i ty of [facility] 4.2.7.2.[address] [place] [id number] 2023-01-29 2023-01-29 Emergency X CHO, [facility] ERT [id number] Univers 08:08:00 10:00:00 HERMINIA [facility] 2023-01-29 2023-01-29 Emergency [facility] [id number] Univers 08:08:00 10:00:00 Herminia DERAS 350.1.13.10 i ty of [facility] 4.2.7.2.[address] [place] [id number] 2023-01-27 2023-01-27 Emergency X [facility] ERT [id number] Univers 04:50:00 07:03:00 BESSIE edepa [facility] 2023-01-27 2023-01-27 Emergency [facility] 1.2.636.019 [id number] Univers 04:50:00 07:03:00 Bessie DERAS 350.1.13.10 i ty of [place] 4.2.7.2.686 [facility] [id number] [address] 2023-01-27 2023-01-27 [facility] 1.2.775.115 [id number] Univers 00:00:00 00:00:00 Nomi DERAS 350.1.13.10 i ty of [facility] 4.2.7.2.686 [facility] PROFESSIO [id number] Wy dical [address] 2023-01-24 2023-01-24 Emergency X [facility] ERT [id number] Univers 12:28:00 16:16:00 STEPHANIE [facility] 2023-01-24 2023-01-24 [facility] [id number] Univers 12:28:00 16:16:00 Stephanie DERAS 350.1.13.10 i ty of [place] [address] [place] [id number] 2023-01-23 2023-01-23 Emergency X [facility] ERT [id number] Univers 19:02:00 20:36:00 [facility] 2023-01-23 2023-01-23 Emergency [facility] [id number] [id number] Univers 19:02:00 20:36:00 Iza DERAS 350.1.13.10 i ty of [place] 4.2.7.2.686 [facility] [id number] [address] 2023-01-22 2023-01-22 Emergency [facility] ERT [id number] Univers 18:24:00 19:55:00 IZA itdeepa [facility] 2023-01-22 2023-01-22 Emergency Avani [facility] [id number] Univers 18:24:00 19:55:00 Iza Apple BRAEDEN 350.1.13.10 i ty of [facility] 4.2.7.2.[address] [facility] [id number] [facility] 084 Branch 2023-01-21 2023-01-21 Emergency X [facility] ERT [id number] Univers 14:20:00 18:14:00 L[place] judge [facility] 2023-01-21 2023-01-21 Emergency [facility] [id number] Univers 14:20:00 18:14:00 Louis DERAS 350.1.13.10 i ty of [place] 4.2.7.2.686 [facility] [id number] [facility] 084 Branch 2023-01-20 2023-01-20 Transition FryeGARY [id number] Univers 00:00:00 00:00:00 of Care Taylor SHAIKH 350.1.13.10 it y of GIULIANA 4.2.7.2.686 [facility] [id number] [facility] 403 Branch 2023-01-19 2023-01-19 [facility] 1.2.84 0.114 [id number] Univers 01:15:00 19:40:00 Encounter VarmaIza 350.1.13.10 ity of Agapito Hackett [facility] 4.2.7.2.686 [facility] [id number] [place] [id number] Branch 2023-01-17 2023-01-17 Emergency X [facility] SERVICE UNIT ERT [id number] Univers 05:57:00 07:37:00 MARISOL judge [facility] 2023-01-17 2023-01-17 [facility] 1.2.034.518 [id number] Univers 05:57:00 07:37:00 Marisol DERAS 350.1.13.10 ity of [facility] 4.2.7.2.686 [phone] [address] 2023-01-17 2023-01-17 Emergency X [facility] ERT [id number] Univers 05:57:00 07:37:00 MARISOL ity [facility] 2023-01-10 2023-01-10 Letter [facility] 1.2.840.114 [id number] Univers 00:00:00 00:00:00 (Out) [facility] 350.1.13.10 it y of [place] 4.2.7.2.686 [place] as JACKIE?BLEA [phone] [address] OFFICE [facility] 2023-01-07 2023-01-07 Outpatient [facility] [id number] Univers 14:30:00 15:25:56 HERMINIA ity [facility] 2023-01-07 2023-01-07 Office [facility] 1.2.840.114 [id number] Univers 14:30:00 15:25:56 Visit [facility] 350.1.13.10 it y of [place] 4.2.7.2.686 [place] JACKIE?BLEA [id number] [address] [facility] 2022-12-26 2022-12-26 Emergency [facility] ERT [id number] Univers 10:50:00 14:12:00 IZA ity [facility] 2022-12-26 2022-12-26 Emergency [facility] 1.2.360.301 [id number] Univers 10:50:00 14:12:00 Iza S BRAEDEN 350.1.13.10 i ty of [facility] 4.2.7.2.686 [facility] [phone] [address] 2022-12-14 2022-12-14 Outpatient R NOMI MARY [facility] 10 [id number] Univers 11:30:00 11:30:00 NOMI MARY i ty of [facility] 2022-12-14 2022-12-14 Transition GARY Frye 1.2.840.114 [id number] Univers 00:00:00 00:00:00 of Care Taylor B SHAIKH 350.1.13.10 it y of [place]7.2.[address] [place] [id number] [facility] [address] 2022-12-10 2022-12-12 Outpatient X WANDARADHA [facility] [id number] Univers 18:49:00 14:35:00 TRAVIS ity of [facility] 2022-12-10 2022-12-12 [facility] Louis [facility] 1.2.840.1 14 [id number] Univers 18:49:00 14:35:00 Encounter Dedrick Toth 350.1.13. 10 ity of Wandaradha Travisgeorge PATHAK 4.2.7.2.[address] [facility] [phone] [facility] [address] 2022-12-10 2022-12-10 Enrrique Mary [facility] 1.2.840.114 [id number] Univers 00:00:00 00:00:00 Management Nomi DERAS 350.1.13.10 ity of [place] [id number] [facility] [address] [facility] 2022-12-10 2022-12-10 Transition GARY Caro 1.2.840.114 101 [id number] Univers 00:00:00 00:00:00 of Care Cecy SHAIKH 350.1.13.10 ity of [place] 4.2.7.2.[id number] [facility] [address] 2022-12-09 2022-12-09 Orders Doctor ELDER 1.2.840.114 [id number] Univers 00:00:00 00:00:00 Only Unassigned, ASHER 350.1.13.10 ity of [place] [facility] 4.2.7.2.[address] [place] [phone] [facility] [address] 2022-12-06 2022-12-06 Transition GARY Frye 1.2.840.114 101 [id number] Univers 00:00:00 00:00:00 of Care Taylor B SHAIKH 350.1.13.10 it y of [place]2.7.2.[address] [place] [id number] [facility] [address] 2022-12-02 2022-12-04 Hospital Carlo Maki [facility] 1.2.8 40.114 [id number] Univers 00:13:00 12:30:00 Encounter Beny Abisergei JOHNSTON 350.1.13.10 ity of Clive Contreras 4.2.7.2.686 [facility] [id number] [facility] [address] (CLC) 2022-12-01 2022-12-01 Emergency U ERNESTO PIPER [facility] ERT [id number] Univers 05:32:00 09:08:00 [facility] 2022-12-01 2022-12-01 Emergency Marisol eDvlin [facility] 1.2.840 .114 [id number] Univers 05:32:00 09:08:00 Ernesto Piper 350.1.13.10 ity of Krissy Powers 4.2.7.2.686 [facility] [id number] [place] [id number] Branch 2022-12-01 2022-12-01 Emergency U CHUCKERNESTO Francois [facility] ERT [id number] Univers 05:32:00 09:08:00 ERNESTO PIPER [facility] 2022-11-26 2022-11-28 Outpatient X DHARMESH [facility] [place] [id number] Univers 22:55:00 13:50:00 LEILA y [facility] 2022-11-26 2022-11-28 Hospital Bessie Oswald [facility] 1.2.840.11 4 [id number] Univers 22:55:00 13:50:00 Encounter María Diaz 350.1.13.10 ity of Leila Chapa 4.2.7.2.[address] [facility] [id number] [facility] [address] 2022-11-19 2022-11-19 Emergency X AVANI [facility] ERT [id number] Univers 02:17:00 05:12:00 IZA ity [facility] 2022-11-19 2022-11-19 Emergency [facility] 1.2.749.796 [id number] Univers 02:17:00 05:12:00 Iza DERAS 350.1.13.10 i ty of [facility] 4.2.7.2.686 [id number] [facility] [address] 2022-11-18 2022-11-18 Emergency [facility] ERT [id number] Univers 18:52:00 20:29:00 FRANCISCA itdeepa [facility] 2022-11-18 2022-11-18 Emergency [facility] 1.2.840.114 10 [id number] Univers 18:52:00 20:29:00 Francisca DERAS 350.1.13.10 ity of [facility] 4.2.7.2.686 [facility] [id number] [place] 8[address]314 [facility] 2022-11-17 2022-11-17 [facility] 1.2.242.920 [id number] Univers 00:00:00 00:00:00 Nomi DERAS 350.1.13.10 i ty of [place].2.[place] [phone] [place] 229665 [facility] 2022-11-12 2022-11-12 Transition GARY Frye 1.2.840.114 100 [id number] Univers 00:00:00 00:00:00 of Care Taylor SHAIKH 350.1.13.10 it y of [place] 4.2.7.2.[id number] [facility] [address] 2022-11-09 2022-11-11 Inpatient X KARRI [facility] [place] [id number] Univers 01:32:00 13:35:00 TRAVIS judge [facility] 2022-11-09 2022-11-11 [facility] Marisol Devlin [facility] 1.2.840. 114 [id number] Univers 01:32:00 13:35:00 Encounter Travis Zeng 350.1.13.10 ity of [facility] 4.2.7.2.686 [facility] [id number] [facility] [address] [place] 2021-05-22 2021-05-22 Telephone [facility] 1.2.786.279 [id number] Univers 00:00:00 00:00:00 Jeanette Deshpande Braeden 350.1.13.10 ity of [place] [id number] Wy dical nal 204 [facility] 2021-05-20 2021-05-20 Card Hanger Remington, Anshu Lab Main [facility] 1.2.8 40.114 [id number] Univers 14:28:38 14:43:38 Visit Gokul Turner 350.1.13.10 it[place] of [place] [id number] [facility] 353 [facility] 2021-05-20 2021-05-20 [facility] [id number] Univers 14:30:00 14:30:00 GOKUL ity [facility] 2021-05-20 2021-05-20 Orders Doctor ELDER 1.2.840.114 [id number] Univers 00:00:00 00:00:00 Only Unassigned, ASHER 350.1.13.10 ity of [place] [facility] 4.2.7.2.[phone] [facility] [address] [place] 2021-05-20 2021-05-20 Telephone [facility] 1.2.840.114 [id number] Univers 00:00:00 00:00:00 Gokul Deras 350.1.13.10 i ty [place] [phone] Wy dical nal 204 [facility] 2020-12-29 2020-12-29 Office [facility] 1.2.840.114 [id number] Univers 10:12:45 11:07:51 Visit Gokul Deras 350.1.13.10 i ty of [place].2.[place] [id number] Wy dical nal 204 [facility] 2020-12-29 2020-12-29 Outpatient R YUE [facility] [id number] Univers 10:15:00 10:15:00 [facility] 2020-12-18 2020-12-18 Office [facility] 1.2.840.114 [id number] Univers 13:36:17 14:58:35 Visit Rm, Adc Surg Spec Procedure Braeden 3 50.1.13.10 ity of [place].2.[place] [id number] [address] 2020-12-18 2020-12-18 Outpatient R YUE [facility] [id number] Univers 14:00:00 14:00:[address] [facility] [place] [place] 2020-12-16 2020-12-16 Outpatient [facility] [id number] Univers 00:00:00 00:00:00 [facility] 2020-12-16 2020-12-16 Telephone [facility] 1.2.536.346 [id number] Univers 00:00:00 00:00:00 Jeanette Deras 350.1.13.10 it[place] of [place] [phone] [address] 2020-12-12 2020-12-12 Emergency [facility] 1.2.840.114 [id number] Univers 11:36:00 13:42:00 Francisca Deras 350.1.13.10 ity of [place].2.[place] [phone] [address] 2020-12-12 2020-12-12 Telephone [facility] 1.2.672.022 [id number] Univers 00:00:00 00:00:00 Jeanette Deras 350.1.13.10 it[place] of [place] [phone] [address] 2020-12-08 2020-12-08 Office [facility] 1.2.840.114 [id number] Univers 13:28:10 14:09:14 Visit Jeanette A Braeden 350.1.13.10 ity of [place] 4.2.7.2.686 Texsergei apple essio [phone] Wy dical [address] 2020-12-08 2020-12-08 Outpatient Manoj MCDANIEL, [facility] [id number] Univers 13:30:00 13:30:00 JEANETTE judge [facility] 2020-12-08 2020-12-08 Orders Doctor ELDER 1.2.840.114 [id number] Univers 00:00:00 00:00:00 Only Unassigned, ASHER 350.1.13.10 ity of [place] [facility] 4.2.7.2.686 [place] as [phone] [address] 2020-12-07 2020-12-07 Nurse ELDER Perez2.840.114 [id number] Univers 00:00:00 00:00:00 Triage Herminia Apple ASHER 350.1.13.10 ity of HOSPITAL 4.2.7.2.686 [place] [phone] [address] 2020-06-19 2020-06-19 Outpatient Pepper, [facility] [id number] [facility] 13:30:00 13:30:00 Tyrell 21 [facility] 2020-02-20 2020-02-20 Orders Doctor ELDER Addison.2.840.114 [id number] 00:00:00 00:00:00 Only Unassigned, ASHER 350.1.13.10 [place] [facility] 4.2.7.2.686 [id number] 009 2020-02-20 2020-02-20 Orders Doctor ELDER Addison.2.840.114 [id number] Univers 00:00:00 00:00:00 Only Unassigned, ASHER 350.1.13.10 ity of [place] [facility] 4.2.7.2.686 [place] [phone] [address] 2019-08-28 2019-08-28 Emergency X MARQUIS [facility] ERT [id number] Univers 08:25:33 11:54:00 HERMINIA judge [facility] 2019-08-24 2019-08-24 Emergency X SINGER [facility] ERT [id number] Univers 01:43:17 03:52:00 LOUIS judge of [facility] 2019-05-03 2019-05-04 [facility] 1.2.059.367 [id number] 23:28:18 00:27:00 Rameshmariela Deras 350.1.13.10 [place] 4.2.7.2.686 [place] [id number] [facility] 2019-05-03 2019-05-04 [facility] 1.2.796.367 [id number] 5712 [facility] 23:28:18 00:27:00 Rameshmariela Deras 350.1.13.10 i ty of [place] 4.2.7.2.686 [facility] s [place] [phone] [address] 2019-05-03 2019-05-03 Orders Doctor ELDER 1.2.840.114 [id number] 00:00:00 00:00:00 Only Unassigned, ASHER 350.1.13.10 [place] [facility] 4.2.7.2.686 [id number] 009 2019-05-03 2019-05-03 Orders Doctor ELDER 1.2.840.114 [id number] Univers 00:00:00 00:00:00 Only Unassigned, ASHER 350.1.13.10 ity of [place] [facility] 4.2.7.2.686 [facility] [phone] [address] Results Test Description Test Time Test Comments Results Result Comments Source GLUCOSE BEDSIDE TESTING 2023-03-19 11:23:00 Test Item Value Reference Range Interpretation Comme nts GLUCOSE BEDSIDE TESTING (test code = GLUBED) 112 MG/DL 60-99 H GLUCOSE BEDSIDE [id number] 07:35:00 Test Item Value Reference Range Interpretation Comments GLUCOSE BEDSIDE TESTING (test code 170 MG/DL 60-99 H = GLUBED) VITAMIN [id number] 15:12:00 Test Item Value Reference Range Interpretation Comments VITAMIN B12 (test code = VITB12) 738 pg/mL 637-931 N FOLIC [id number] 15:12:00 Test Item Value Reference Range Interpretation Comments FOLIC ACID (test 4.9 ng/mL REFERENCE V ALUES: code = FOLR) NORMAL: 2.76 - >20 ng/ML DEFICIENT: 1.04 - 2.79 ng/ML COMPREHENSIVE METABOLIC [id number] 11:38:00 Test Item Value Reference Range Interpretation [...] the recommended for keon for GFRby the [facility] Foundation for Adults.The GFR will not [...] PHOSPHATASE (test code = ALKP) CBC W/AUTO [id number] 11:24:00 Test Item Value Reference Range Interpretation [...] 0.00 K/mm3 0.0-0.1 N NRBC#) ARTERIAL BLOOD [id number] 17:25:00 Test Item Value Reference Range Interpretation [...] and readback by MAC FRANCOIS, PA by SYDAOO at 03/15/2023 4:56: 13 PM ABG DELIVERY (test N/C code = MARY) ABG TEMPERATURE (test 37.0 C See_Comment [Auto mated message] code = TEMPA) The system Ctrip generated this result transmitted ref erence range: 37. The reference range was not used to int erpret this result as normal/abnormal . ABG SITE (test code = LR SITEA) ALLENS TEST (test Y CHECK code = ALLENS) FIO2 (test code = 36 % COHBGFFIO2) [id number] 12:29:00 Test Item Value Reference Range Interpretation Comments PHOSPHOROUS (test code = PHOS) 3.5 MG/DL 2.5-4.5 N ADD ON TEST? [id number] 12:29:00 Test Item Value Reference Range Interpretation Comments MAGNESIUM (test code = MAG) 1.8 MG/DL 1.6-2.3 N ADD ON TEST? YesARTERIAL BLOOD [id number] 12:26:00 Test Item Value Reference Range Interpretation [...] % 0.4-1.5 L = METHGB) VENOUS BLOOD [id number] 11:46:00 Test Item Value Reference Range Interpretation [...] % 0.4-1.5 L = METHGB) BASIC METABOLIC [id number] 07:06:00 Test Item Value Reference Range Interpretation [...] the recommended for keon for GFRby the Nat nal Kidney Foundati on for Adults.The GFR will not calculate if th e sex is unknown or if thepatient's ag e is <18 years. CREATININE (test 0.70 MG/DL 0.66-1.25 N code = CREAT) CALCIUM (test code = 7.7 MG/DL 8.4-10.2 L CA) NT PRO-BRAIN NATRIURETIC [id number] 07:06:00 Test Item Value Reference Range Interpretation [...] agnosis or exclusion of heart failure (HF). T he performance of the VITROS NT-proBN P [...] causes* of NT-p roBNP elevation. -------- -------- [id number] 07:06:00 Test Item Value Reference Range Interpretation Comments TROPONIN-I (test code = TROPI) < 0.012 NG/ML 0.012-0.033 L - XR CHEST [id number] 06:59:00 [facility] : 1960 Sex: M Patient Name: JUAN C MONGE Unit No: [id number] EXAMS: CPT CODE: [id number] XR CHEST 1V 13404 EXAMINATION: - XR CHEST 1V HISTORY: Chest [...] SylviaAG38 Orig Print D/T: S: 03/15/2023 (0702) [facility] NAME:JUAN C MONGE [address] PHYS: [place] [address] : 1960 AGE: 62 SEX: M LOC: RUCHI PHONE #: [phone] EXAM DATE: 03/15/2023 STATUS: REG ERFAX #: [phone] RADIOLOGY NO: PAGE 1 Signed ReportCBC W/O [id number] 06:42:00 Test Item Value Reference Range Interpretation [...] = 0.00 K/mm3 0.0-0.1 N NRBC#) TROPONIN [id number] 21:12:01 Test Item Value Reference Range Interpretation Comments TROPONIN I (test code = <=0.034 0379486184) OMAYRA (test code = OMAYRA) Reference (Normal) [...] biotin. Lab Interpretation Normal (test code = 83630-6) [facility]. METABOLIC PANEL (11568)2023-02-15 21:00:57 Test Item Value Reference Range Interpretation Comments NA (test code = 133 mmol/L 135-145 L 2274705776) K (test code = 4.5 mmol/L 3.5-5.0 0700951547) CL (test code = 90 mmol/L 98-108 L 1275702603) CO2 TOTAL (test code = 40 mmol/L 23-31 H 6080967557) AGAP (test code = 3 2-16 1815088459) BUN (test code = 25 mg/dL 7-23 H 8063152223) GLUCOSE (test code = 107 mg/dL 70-110 1085468595) CREATININE (test code = 0.88 mg/dL 0.60-1.25 9030389503) TOTAL BILI (test code = 1.6 mg/dL 0.1-1.1 H 8647382560) CALCIUM (test code = 8.9 mg/dL 8.6-10.6 8902591708) T PROTEIN (test code = 6.1 g/dL 6.3-8.2 L 3783837696) ALBUMIN (test code = 3.7 g/dL 3.5-5.0 6475712903) ALK PHOS (test code = 56 U/L 34-122 1938796854) ALTv (test code = 14 U/L 5-50 1742-6) AST(SGOT) (test code = 12 U/L 13-40 L 3537043988) eGFR (test code = 87.2 mL/min/1.73m2 6324743785) OMAYRA (test code = OMAYRA) Association of [...] tests). Lab Interpretation Abnormal (test code = 00752-2) [facility]57 Test Item Value Reference Range Interpretation Comments MAGNESIUM (test code = 6249849470) 2.0 mg/dL 1.7-2.4 Lab Interpretation (test code = Normal 71512-0) [facility] WITH [id number] 20:53:39 Test Item Value Reference Range Interpretation [...] RDW-SD (test code = 50.1 fL 38.5-51.6 02789-6) RDW-CV (test code = 13.6 % 12.1-15.4 788-0) PLT (test code = 223 See_Comment [Automated 777-3) message] The sy stem which generated this result transmitted reference range : 150 - 328 10*3/ ?L. The reference r pasquale was not used to interpret this result as normal/abnormal . MPV (test code = 12.1 fL 9.8-13.0 03153-1) NRBC/100 WBC (test 0.0 See_Comment [Automat ed code = 5998280014) message] The system which generated this result transmitted reference range : 0.0 - 10.0 /100 WBCs. The refer ence range was not u sed to interpret th is result as normal/abnormal . NRBC x10^3 (test code See_Comment [Auto mated = 7674274390) message] The s ystem which generated this result transmitted reference range : 10*3/?L. The reference range was not used to interpret this result as normal/abnormal . GRAN MAT (NEUT) % 72.8 % (test code = 770-8) IMM GRAN % (test code 0.90 % = 0128259574) LYMPH % (test code = 17.7 % 736-9) MONO % (test code = 7.4 % 5905-5) EOS % (test code = 0.9 % 713-8) BASO % (test code = 0.3 % 706-2) GRAN MAT x10^3(ANC) 6.57 10*3/uL 1.99-6.95 (test code = 4403706832) IMM GRAN x10^3 (test 0.08 10*3/uL 0.00-0.06 H code = 1293401368) LYMPH x10^3 (test code 1.60 10*3/uL 1.09-3.23 = 731-0) MONO x10^3 (test code 0.67 10*3/uL 0.36-1.02 = 742-7) EOS x10^3 (test code = 0.08 10*3/uL 0.06-0.53 711-2) BASO x10^3 (test code 0.03 10*3/uL 0.01-0.09 = 704-7) Lab Interpretation Abnormal (test code = 88352-3) [facility] + LACTIC [id number] 20:11:20 Test Item Value Reference Range Interpretation Comments PH (test code = 7.33 7.32-7.42 7836115379) PCO2 ERVIN (test code = 75 See_Comment H [Auto mated 8575163959) message] The sy stem which generated this result transmitted reference range : 41 - 51 mmHg. The reference range was not used to interpret this result as normal/abnormal . PO2 ERVIN (test code = 20 See_Comment L [Autom ated 0855002594) message] The sy stem which generated this result transmitted reference range : 25 - 40 mmHg. The reference range was not used to interpret this result as normal/abnormal . HCO3 ERVIN (test code = 39 See_Comment H [Auto mated 3563167616) message] The sy stem which generated this result transmitted reference range : 24 - 28 mEq/L. The reference range was not used to interpret this result as normal/abnormal . AC VBE(BEAKER) (test 9.1 mEq/L code = 3858439715) THB ERVIN (test code = 15.9 g/dL 13.5-18.0 3403733835) %O2HB ERVIN (test code = 30.0 % 52.0-63.0 L 1367246164) %COHB ERVIN (test code = 4.1 % 0.0-1.5 H 8586505710) %METHB ERVIN (test code = 0.3 % 0.4-1.5 L 1639426434) VOL%O2 ERVIN (test code = 6.7 % 6.0-12.0 6786317695) NA (test code = 137 mmol/L 135-145 2481611225) K+ (test code = 4.5 mmol/L 3.5-5.0 0215113082) AC CA IONZ (test code = 4.60 mg/dL 4.50-5.30 9223308740) GLUCOSE (test code = 113 mg/dL 70-110 H 1161804592) LACTIC ACID (test code 1.65 mmol/L 0.50-2.20 = 4186216567) Lab Interpretation Abnormal (test code = 59229-6) [id number] 21:20:05 Test Item Value Reference Range Interpretation Comments TROPONIN I (test code = 0.005 ng/mL <=0.034 0803649048) OMAYRA (test code = OMAYRA) Reference (Normal) [...] biotin. Lab Interpretation Normal (test code = 85893-4) [facility] [id number] 21:17:24 Test Item Value Reference Range Interpretation Comments NT-proBNP (test code = 712 pg/mL <=125 H 3107197005) OMAYRA (test code = OMAYRA) Biotin has been reported to cause a negative bias, interpret results relative to patient's use of biotin. Lab Interpretation (test Abnormal code = 38034-0) [facility]23-[facility] 21:13:47 ALCOHOL<10mg/dL01/31/2023 4:13 PM [facility]<10 Nssntarw07-871 Toxic>100 Depression of ANALYTICAL SCIENTIST>400 Fatal[facility]Un[facility]COMP. METABOLIC PANEL (01424) 2023-01-31 21:10:01 Test Item Value Reference Range Interpretation Comments NA (test code = 142 mmol/L 135-145 3428279809) K (test code = 4.7 mmol/L 3.5-5.0 9608933740) CL (test code = 99 mmol/L 98-108 3809132420) CO2 TOTAL (test code = 37 mmol/L 23-31 H 7794193590) AGAP (test code = 6 2-16 2529196460) BUN (test code = 30 mg/dL 7-23 H 2856722178) GLUCOSE (test code = 100 mg/dL 70-110 2617393926) CREATININE (test code = 0.61 mg/dL 0.60-1.25 4336642701) TOTAL BILI (test code = 0.6 mg/dL 0.1-1.7 0999356085) CALCIUM (test code = 8.8 mg/dL 8.6-10.6 3099729232) T PROTEIN (test code = 5.9 g/dL 6.3-8.2 L 9153945839) ALBUMIN (test code = 3.5 g/dL 3.5-5.0 5813820885) ALK PHOS (test code = 42 U/L 34-122 5085484841) ALTv (test code = 16 U/L 5-50 1742-6) AST(SGOT) (test code = 12 U/L 13-40 L 7308922030) eGFR (test code = 133.1 mL/min/1.73m2 3623063007) OMAYRA (test code = OMAYRA) Association of [...] tests). Lab Interpretation Abnormal (test code = 35134-7) [facility] WITH [id number] 20:59:58 Test Item Value Reference Range Interpretation Comments WBC (test code = 13.02 See_Comment H [Automated 8210-2) message] The system which generated this result transmit anirudh reference range : 4.20 - 10.70 10*3/?L. The reference range was not used to interpret this result as normal/abnormal . RBC (test code = 4.09 See_Comment L [Automated 137-8) message] The system which generated this result [...] (test code = 61.6 fL 38.5-51.6 H 35878-6) RDW-CV (test code = 16.2 % 12.1-15.4 H 788-0) PLT (test code = 250 See_Comment [Automated 777-3) message] The system which generated this result transmit anirudh reference range : 150 - 328 10*3/ ?L. The reference range was not u sed to interpret th is result as normal/abnormal . MPV (test code = 10.5 fL 9.8-13.0 78652-4) NRBC/100 WBC (test 0.0 See_Comment [Automat ed code = [id number]) message] The system which generated this result transmit anirudh reference range : 0.0 - 10.0 /100 WBCs. The reference range was not used to interpret this result as normal/abnormal . NRBC x10^3 (test code See_Comment [Auto mated = [id number]) message] The system which generated this result transmit anirudh reference range : 10*3/?L. The reference range was not used to interpret this result as normal/abnormal . GRAN MAT (NEUT) % 90.9 % (test code = 770-8) IMM GRAN % (test code 1.20 % = [id number]) LYMPH % (test code = 3.9 % 736-9) MONO % (test code = 3.8 % 5905-5) EOS % (test code = 0.0 % 713-8) BASO % (test code = 0.2 % 706-2) GRAN MAT x10^3(ANC) 11.83 10*3/uL 1.99-6.95 H (test code = [id number]) IMM GRAN x10^3 (test 0.16 10*3/uL 0.00-0.06 H code = [id number]) LYMPH x10^3 (test code 0.51 10*3/uL 1.09-3.23 L = 731-0) MONO x10^3 (test code 0.49 10*3/uL 0.36-1.02 = 742-7) EOS x10^3 (test code = 0.06-0.53 L 711-2) BASO x10^3 (test code 0.03 10*3/uL 0.01-0.09 = 704-7) Lab Interpretation Abnormal (test code = 09582-1) [id number] Test Item Value Reference Range Interpretation Comments TROPONIN I (test code = 0.002 ng/mL <=0.034 [id number]) OMAYRA (test code = OMAYRA) Reference (Normal) [...] biotin. Lab Interpretation Normal (test code = 09619-4) [id number] 11:13:18 Test Item Value Reference Range Interpretation Comments NT-proBNP (test code = 112 pg/mL <=125 [id number]) OMAYRA (test code = OMAYRA) Biotin has been reported to cause a negative bias, interpret results relative to patient's use of biotin. Lab Interpretation (test Normal code = 29176-6) [facility] (NA, K, CL, CO2, GLUCOSE, BUN, CREATININE, CA)2023-01-27 11:04:56 Test Item Value Reference Range Interpretation Comments NA (test code = 136 mmol/L 135-145 1971681059) K (test code = 4.1 mmol/L 3.5-5.0 2648852556) CL (test code = 96 mmol/L 98-108 L 5232633690) CO2 TOTAL (test code = 34 mmol/L 23-31 H 6132627069) AGAP (test code = 6 2-16 4578895517) BUN (test code = 22 mg/dL 7-23 8251224104) GLUCOSE (test code = 117 mg/dL 70-110 H 7518743092) CREATININE (test code = 0.55 mg/dL 0.60-1.25 L 3300788356) CALCIUM (test code = 8.4 mg/dL 8.6-10.6 L 9456913994) eGFR (test code = 150.0 mL/min/1.73m2 9407114787) OMAYRA (test code = OMAYRA) Association of [...] tests). Lab Interpretation Abnormal (test code = 94552-6) [facility] WITH [id number] 10:38:33 Test Item Value Reference Range Interpretation Comments WBC (test code = 9.56 See_Comment [Ogvppckdm 0343-2) message] The sy stem which generated this [...] (test code = 56.7 fL 38.5-51.6 H 13628-7) RDW-CV (test code = 15.3 % 12.1-15.4 788-0) PLT (test code = 220 See_Comment [Automated 777-3) message] The sy stem which generated this result transmitted reference range : 150 - 328 10*3/ ?L. The reference r pasquale was not used to interpret this result as normal/abnormal . MPV (test code = 10.6 fL 9.8-13.0 81026-3) NRBC/100 WBC (test 0.0 See_Comment [Automat ed code = 9550403786) message] The system which generated this result transmitted reference range : 0.0 - 10.0 /100 WBCs. The refer ence range was not u sed to interpret th is result as normal/abnormal . NRBC x10^3 (test code See_Comment [Auto mated = 6501050040) message] The s ystem which generated this result transmitted reference range : 10*3/?L. The reference range was not used to interpret this result as normal/abnormal . GRAN MAT (NEUT) % 60.0 % (test code = 770-8) IMM GRAN % (test code 0.70 % = 2301979966) LYMPH % (test code = 26.5 % 736-9) MONO % (test code = 11.4 % 5905-5) EOS % (test code = 0.9 % 713-8) BASO % (test code = 0.5 % 706-2) GRAN MAT x10^3(ANC) 5.73 10*3/uL 1.99-6.95 (test code = 0906272167) IMM GRAN x10^3 (test 0.07 10*3/uL 0.00-0.06 H code = 4225230393) LYMPH x10^3 (test code 2.53 10*3/uL 1.09-3.23 = 731-0) MONO x10^3 (test code 1.09 10*3/uL 0.36-1.02 H = 742-7) EOS x10^3 (test code = 0.09 10*3/uL 0.06-0.53 711-2) BASO x10^3 (test code 0.05 10*3/uL 0.01-0.09 = 704-7) Lab Interpretation Abnormal (test code = 09502-0) [facility] [id number] 18:51:59 Test Item Value Reference Range Interpretation Comments AMMONIA (test code = 4044180405) 9-33 L Lab Interpretation (test code = Abnormal 29967-5) [facility] + LACTIC [id number] 18:40:53 Test Item Value Reference Range Interpretation Comments PH (test code = 2) 7.43 7.35-7.45 PCO2 (test code = 53 See_Comment H [Automate d 1894121548) message] The sy stem which generated this result transmitted reference range : 35 - 45 mmHg. The reference range was not used to interpret this result as normal/abnormal . PO2 (test code = 49 See_Comment L [Automated 5271353483) message] The sy stem which generated this result transmitted reference range : 80 - 100 mmHg. The reference range was not used to interpret this result as normal/abnormal . HCO3 (test code = 34 See_Comment H [Automate d 0068757049) message] The sy stem which generated this result transmitted reference range : 22 - 26 mEq/L. The reference range was not used to interpret this result as normal/abnormal . BE (test code = 7.8 See_Comment H [Automated 8189576111) message] The sy stem which generated this result transmitted reference range : -3.0 - 3.0 mEq/ L. The reference r pasquale was not used to interpret this result as normal/abnormal . LACTIC ACID (test code 0.92 mmol/L 0.50-2.20 = 0369229066) Lab Interpretation Abnormal (test code = 12728-6) [facility] [id number] 18:28:26 Test Item Value Reference Range Interpretation Comments TROPONIN I (test code = 0.003 ng/mL <=0.034 8012955440) OMAYRA (test code = OMAYRA) Reference (Normal) [...] biotin. Lab Interpretation Normal (test code = 40858-4) [facility] [id number] 18:25:29 Test Item Value Reference Range Interpretation Comments NT-proBNP (test code = 376 pg/mL <=125 H 3475624490) OMAYRA (test code = OMAYRA) Biotin has been reported to cause a negative bias, interpret results relative to patient's use of biotin. Lab Interpretation (test Abnormal code = 13560-2) [facility] (83484)2023-01-24 18:24:03 Test Item Value Reference Range Interpretation Comments NA (test code = 135 mmol/L 135-145 8386502503) K (test code = 4.0 mmol/L 3.5-5.0 9503540339) CL (test code = 90 mmol/L 98-108 L 2441680763) CO2 TOTAL (test code = 43 mmol/L 23-31 H 5958150869) AGAP (test code = 2 2-16 1294385584) BUN (test code = 12 mg/dL 7-23 3246433906) GLUCOSE (test code = 92 mg/dL 70-110 3334764390) CREATININE (test code = 0.58 mg/dL 0.60-1.25 L 9633160849) TOTAL BILI (test code = 1.3 mg/dL 0.1-1.1 H 4918140259) CALCIUM (test code = 8.6 mg/dL 8.6-10.6 5496152842) T PROTEIN (test code = 6.0 g/dL 6.3-8.2 L 1330024537) ALBUMIN (test code = 3.6 g/dL 3.5-5.0 1887080030) ALK PHOS (test code = 52 U/L 34-122 4469133360) ALTv (test code = 17 U/L 5-50 1742-6) AST(SGOT) (test code = 10 U/L 13-40 L 9591642119) eGFR (test code = 141.1 mL/min/1.73m2 4003864517) OMAYRA (test code = OMAYRA) Association of [...] tests). Lab Interpretation Abnormal (test code = 44226-8) [facility]OL[facility] 18:23:38 ALCOHOL<10mg/dL01/24/2023 1:23 [facility]10 Fllvjkon76-544 Toxic>100 Depression of ANALYTICAL SCIENTIST>400 Fatalities ReportedUnNacogdoches [facility] HospitalCBC with [id number] 18:09:00 Test Item Value Reference Range Interpretation Comments WBC (test code = 7.84 See_Comment [Automated 0757-2) message] The sy stem which generated this result transmitted reference range : 4.20 - 10.70 10*3/?L. The reference range was not used to interpret this result as normal/abnormal . RBC (test code = 4.46 See_Comment [Automated 399-8) message] The sy stem which generated this [...] (test code = 59.7 fL 38.5-51.6 H 38943-6) RDW-CV (test code = 15.8 % 12.1-15.4 H 788-0) PLT (test code = 239 See_Comment [Automated 217-3) message] The sy stem which generated this result transmitted reference range : 150 - 328 10*3/ ?L. The reference r pasquale was not used to interpret this result as normal/abnormal . MPV (test code = 10.5 fL 9.8-13.0 65731-9) NRBC/100 WBC (test 0.0 See_Comment [Automat ed code = 1430999974) message] The system which generated this result transmitted reference range : 0.0 - 10.0 /100 WBCs. The refer ence range was not u sed to interpret th is result as normal/abnormal . NRBC x10^3 (test code See_Comment [Auto mated = 1514620558) message] The s ystem which generated this result transmitted reference range : 10*3/?L. The reference range was not used to interpret this result as normal/abnormal . GRAN MAT (NEUT) % 64.5 % (test code = 770-8) IMM GRAN % (test code 0.40 % = 2430880527) LYMPH % (test code = 23.1 % 736-9) MONO % (test code = 9.8 % 5905-5) EOS % (test code = 1.8 % 713-8) BASO % (test code = 0.4 % 706-2) GRAN MAT x10^3(ANC) 5.06 10*3/uL 1.99-6.95 (test code = 5114159637) IMM GRAN x10^3 (test 0.03 10*3/uL 0.00-0.06 code = 7389379071) LYMPH x10^3 (test code 1.81 10*3/uL 1.09-3.23 = 731-0) MONO x10^3 (test code 0.77 10*3/uL 0.36-1.02 = 742-7) EOS x10^3 (test code = 0.14 10*3/uL 0.06-0.53 711-2) BASO x10^3 (test code 0.03 10*3/uL 0.01-0.09 = 704-7) Lab Interpretation Abnormal (test code = 13702-0) [facility]. METABOLIC PANEL (05941)2023-01-21 21:33:50 Test Item Value Reference Range Interpretation Comments NA (test code = 136 mmol/L 135-145 2273682629) K (test code = 4.3 mmol/L 3.5-5.0 4921875723) CL (test code = 95 mmol/L 98-108 L 4864783607) CO2 TOTAL (test code = 38 mmol/L 23-31 H 2143731215) AGAP (test code = 3 2-16 4637701676) BUN (test code = 17 mg/dL 7-23 2779002490) GLUCOSE (test code = 102 mg/dL 70-110 6334689023) CREATININE (test code = 0.62 mg/dL 0.60-1.25 0640319009) TOTAL BILI (test code = 0.8 mg/dL 0.1-1.9 5954957524) CALCIUM (test code = 7.8 mg/dL 8.6-10.6 L 7316556984) T PROTEIN (test code = 4.9 g/dL 6.3-8.2 L 5136907234) ALBUMIN (test code = 3.0 g/dL 3.5-5.0 L 5295370363) ALK PHOS (test code = 45 U/L 34-122 7117593610) ALTv (test code = 13 U/L 5-50 1742-6) AST(SGOT) (test code = 11 U/L 13-40 L 4128167594) eGFR (test code = 130.6 mL/min/1.73m2 1595548948) OMAYRA (test code = OMAYRA) Association of [...] tests). Lab Interpretation Abnormal (test code = 34331-1) [facility] HospitalTROPONIN [id number] 21:11:45 Test Item Value Reference Range Interpretation Comments TROPONIN I (test code = 0.019 ng/mL <=0.034 5339423722) OMAYRA (test code = OMAYRA) Reference (Normal) [...] biotin. Lab Interpretation Normal (test code = 74931-3) [facility] [id number] 21:08:47 Test Item Value Reference Range Interpretation Comments NT-proBNP (test code = 266 pg/mL <=125 H Hemol yzed 7523634475) specimen OMAYRA (test code = OMAYRA) Biotin has been reported to cause a negative bias, interpret results relative to patient's use of biotin. Lab Interpretation Abnormal (test code = 79588-0) [facility] WITH [id number] 20:40:24 Test Item Value Reference Range Interpretation Comments WBC (test code = 6.78 See_Comment [Automated 2990-2) message] The sy stem which generated this [...] (test code = 60.4 fL 38.5-51.6 H 22773-0) RDW-CV (test code = 16.2 % 12.1-15.4 H 788-0) PLT (test code = 215 See_Comment [Automated 777-3) message] The sy stem which generated this result transmitted reference range : 150 - 328 10*3/ ?L. The reference r pasquale was not used to interpret this result as normal/abnormal . MPV (test code = 10.9 fL 9.8-13.0 03894-3) NRBC/100 WBC (test 0.0 See_Comment [Automat ed code = 7413811733) message] The system which generated this result transmitted reference range : 0.0 - 10.0 /100 WBCs. The refer ence range was not u sed to interpret th is result as normal/abnormal . NRBC x10^3 (test code See_Comment [Auto mated = 7980523671) message] The s ystem which generated this result transmitted reference range : 10*3/?L. The reference range was not used to interpret this result as normal/abnormal . GRAN MAT (NEUT) % 75.4 % (test code = 770-8) IMM GRAN % (test code 0.40 % = 3432568939) LYMPH % (test code = 15.3 % 736-9) MONO % (test code = 7.7 % 5905-5) EOS % (test code = 0.9 % 713-8) BASO % (test code = 0.3 % 706-2) GRAN MAT x10^3(ANC) 5.11 10*3/uL 1.99-6.95 (test code = 2892470807) IMM GRAN x10^3 (test 0.03 10*3/uL 0.00-0.06 code = 1197495244) LYMPH x10^3 (test code 1.04 10*3/uL 1.09-3.23 L = 731-0) MONO x10^3 (test code 0.52 10*3/uL 0.36-1.02 = 742-7) EOS x10^3 (test code = 0.06 10*3/uL 0.06-0.53 711-2) BASO x10^3 (test code 0.01-0.09 = 704-7) Lab Interpretation Abnormal (test code = 95251-3) [facility] Skb-[id number] 08:49:53 Test Item Value Reference Range Interpretation Comments NT-proBNP (test code = 158 pg/mL <=125 H 5656071136) OMAYRA (test code = OMAYRA) Biotin has been reported to cause a negative bias, interpret results relative to patient's use of biotin. Lab Interpretation (test Abnormal code = 83235-5) [facility] HospitalD-Jyzwd4347-57-55 08:44:10 Test Item Value Reference Interpretation Comments Range D-DIMER (test code = See_Comment [Autom ated 3800914331) message] The system which generated this result [...] diagnosis. Lab Interpretation Normal (test code = 48742-4) [facility] METABOLIC PANEL (NA, K, CL, CO2, GLUCOSE, BUN, CREATININE, CA)2023-01-19 08:41:13 Test Item Value Reference Range Interpretation Comments NA (test code = 134 mmol/L 135-145 L 3510861081) K (test code = 5.3 mmol/L 3.5-5.0 H 3362475791) CL (test code = 91 mmol/L 98-108 L 1314408241) CO2 TOTAL (test code = 40 mmol/L 23-31 H 5333103758) AGAP (test code = 3 2-16 4401843071) BUN (test code = 14 mg/dL 7-23 5459696838) GLUCOSE (test code = 125 mg/dL 70-110 H 4180150902) CREATININE (test code = 0.64 mg/dL 0.60-1.25 6791752358) CALCIUM (test code = 8.5 mg/dL 8.6-10.6 L 9014789230) eGFR (test code = 125.9 mL/min/1.73m2 5298343640) OMAYRA (test code = OMAYRA) Association of [...] tests). Lab Interpretation Abnormal (test code = 56440-2) [facility] WITH [id number] 08:27:33 Test Item Value Reference Range Interpretation [...] (test code = 58.4 fL 38.5-51.6 H 41632-6) RDW-CV (test code = 15.9 % 12.1-15.4 H 788-0) PLT (test code = 211 See_Comment [Automated 777-3) message] The sy stem which generated this result transmitted reference range : 150 - 328 10*3/ ?L. The reference r pasquale was not used to interpret this result as normal/abnormal . MPV (test code = 10.2 fL 9.8-13.0 20188-0) NRBC/100 WBC (test 0.0 See_Comment [Automat ed code = 1603563414) message] The system which generated this result transmitted reference range : 0.0 - 10.0 /100 WBCs. The refer ence range was not u sed to interpret th is result as normal/abnormal . NRBC x10^3 (test code See_Comment [Auto mated = 2341888854) message] The s ystem which generated this result transmitted reference range : 10*3/?L. The reference range was not used to interpret this result as normal/abnormal . GRAN MAT (NEUT) % 81.2 % (test code = 770-8) IMM GRAN % (test code 0.50 % = 7822342883) LYMPH % (test code = 10.1 % 736-9) MONO % (test code = 7.5 % 5905-5) EOS % (test code = 0.5 % 713-8) BASO % (test code = 0.2 % 706-2) GRAN MAT x10^3(ANC) 8.16 10*3/uL 1.99-6.95 H (test code = 2232168844) IMM GRAN x10^3 (test 0.05 10*3/uL 0.00-0.06 code = 5331769124) LYMPH x10^3 (test code 1.01 10*3/uL 1.09-3.23 L = 731-0) MONO x10^3 (test code 0.75 10*3/uL 0.36-1.02 = 742-7) EOS x10^3 (test code = 0.05 10*3/uL 0.06-0.53 L 711-2) BASO x10^3 (test code 0.01-0.09 = 704-7) Lab Interpretation Abnormal (test code = 32154-7) [facility]EMERITAPRIS[facility]ITALKIRA [id number] 12:09:33 Test Item Value Reference Range Interpretation Comments TROPONIN I (test code = 0.004 ng/mL <=0.034 9868627683) OMAYRA (test code = OMAYRA) Reference (Normal) [...] biotin. Lab Interpretation Normal (test code = 53348-1) [facility] [id number] 12:06:16 Test Item Value Reference Range Interpretation Comments NT-proBNP (test code = 135 pg/mL <=125 H 6428936454) OMAYRA (test code = OMAYRA) Biotin has been reported to cause a negative bias, interpret results relative to patient's use of biotin. Lab Interpretation (test Abnormal code = 99480-2) [facility] Met[facility] Panel (95394)2023-01-17 11:57:36 Test Item Value Reference Range Interpretation Comments NA (test code = 133 mmol/L 135-145 L 2143304659) K (test code = 5.0 mmol/L 3.5-5.0 2685573286) CL (test code = 91 mmol/L 98-108 L 4502542248) CO2 TOTAL (test code = 33 mmol/L 23-31 H 7995677237) AGAP (test code = 9 2-16 4048380130) BUN (test code = 10 mg/dL 7-23 2463608515) GLUCOSE (test code = 104 mg/dL 70-110 8549947886) CREATININE (test code = 0.63 mg/dL 0.60-1.25 8872451545) TOTAL BILI (test code = 1.2 mg/dL 0.1-1.1 H 3640109785) CALCIUM (test code = 9.0 mg/dL 8.6-10.6 1472868013) T PROTEIN (test code = 6.9 g/dL 6.3-8.2 6087200990) ALBUMIN (test code = 4.4 g/dL 3.5-5.0 4579303566) ALK PHOS (test code = 76 U/L 34-122 6193377714) ALTv (test code = 13 U/L 5-50 1742-6) AST(SGOT) (test code = 13 U/L 13-40 5491258103) eGFR (test code = 128.2 mL/min/1.73m2 8527772326) OMAYRA (test code = OMAYRA) Association of [...] tests). Lab Interpretation Abnormal (test code = 68508-4) [facility] with [id number] 11:30:52 Test Item Value Reference Range Interpretation Comments WBC (test code = 9.66 See_Comment [Automated 3903-2) message] The sy stem which generated this result transmitted reference range : 4.20 - 10.70 10*3/?L. The reference range was not used to interpret this result as normal/abnormal . RBC (test code = 5.00 See_Comment [Automated 249-8) message] The sy stem which generated this [...] (test code = 56.6 fL 38.5-51.6 H 11507-8) RDW-CV (test code = 15.4 % 12.1-15.4 788-0) PLT (test code = 261 See_Comment [Automated 777-3) message] The sy stem which generated this result transmitted reference range : 150 - 328 10*3/ ?L. The reference r pasquale was not used to interpret this result as normal/abnormal . MPV (test code = 10.4 fL 9.8-13.0 61071-4) NRBC/100 WBC (test 0.0 See_Comment [Automat ed code = 9901052498) message] The system which generated this result transmitted reference range : 0.0 - 10.0 /100 WBCs. The refer ence range was not u sed to interpret th is result as normal/abnormal . NRBC x10^3 (test code See_Comment [Auto mated = 0058184738) message] The s ystem which generated this result transmitted reference range : 10*3/?L. The reference range was not used to interpret this result as normal/abnormal . GRAN MAT (NEUT) % 58.9 % (test code = 770-8) IMM GRAN % (test code 0.40 % = 8801076180) LYMPH % (test code = 28.6 % 736-9) MONO % (test code = 10.5 % 5905-5) EOS % (test code = 0.9 % 713-8) BASO % (test code = 0.7 % 706-2) GRAN MAT x10^3(ANC) 5.69 10*3/uL 1.99-6.95 (test code = 5734480253) IMM GRAN x10^3 (test 0.04 10*3/uL 0.00-0.06 code = 2396407112) LYMPH x10^3 (test code 2.76 10*3/uL 1.09-3.23 = 731-0) MONO x10^3 (test code 1.01 10*3/uL 0.36-1.02 = 742-7) EOS x10^3 (test code = 0.09 10*3/uL 0.06-0.53 711-2) BASO x10^3 (test code 0.07 10*3/uL 0.01-0.09 = 704-7) Lab Interpretation Abnormal (test code = 89018-8) [facility]AL [id number] 10:20:57 Test Item Value Reference Range Interpretation Comments NT-proBNP (test code = 473 pg/mL <=125 H 7217532250) OMAYRA (test code = OMAYRA) Biotin has been reported to cause a negative bias, interpret results relative to patient's use of biotin. Lab Interpretation (test Abnormal code = 89263-6) [facility] HospitalLIPID PANEL (95981)(TOTAL CHOLESTEROL, TRIGLYCERIDES, HDL)2022-12-12 10:18:39 Test Item Value Reference Range Interpretation Comments CHOL (test code = 6955788596) 133 mg/dL 120-200 HDL (test code = 5333681703) 38 mg/dL >=40 L HDLC RATIO (test code = 9219113382) 3.5 <=5.0 TRIG (test code = 0899547295) 57 mg/dL 30-170 LDL CHOL (test code = 69031-8) 84 mg/dL <=160 VLDL (test code = 8867800624) 11 mg/dL 5-60 Lab Interpretation (test code = Abnormal 44690-5) [facility]MAGN[facility]UM2023-03-26 10:18:19 Test Item Value Reference Range Interpretation Comments MAGNESIUM (test code = 6240294837) 2.0 mg/dL 1.7-2.4 Lab Interpretation (test code = Normal 90487-9) [facility]BASIC [facility]OL[facility] PANEL (NA, K, CL, CO2, GLUCOSE, BUN, CREATININE, CA)2022-12-12 10:18:14 Test Item Value Reference Range Interpretation Comments NA (test code = 130 mmol/L 135-145 L 2865524346) K (test code = 3.7 mmol/L 3.5-5.0 1551070439) CL (test code = 89 mmol/L 98-108 L 0091312531) CO2 TOTAL (test code = 37 mmol/L 23-31 H 7664227977) AGAP (test code = 4 2-16 8646388215) BUN (test code = 13 mg/dL 7-23 2982348868) GLUCOSE (test code = 120 mg/dL 70-110 H 8564265405) CREATININE (test code = 0.56 mg/dL 0.60-1.25 L 0505885827) CALCIUM (test code = 8.3 mg/dL 8.6-10.6 L 0508813481) eGFR (test code = 146.9 mL/min/1.73m2 1290522424) OMAYRA (test code = OMAYRA) Association of [...] tests). Lab Interpretation Abnormal (test code = 66414-1) [facility]ETHANOL2023-[facility] 00:54:58 ALCOHOL<10mg/dL12/10/2022 7:54 PM [facility]<10 Nwzftcjx72-588 Toxic>100 Depression of ANALYTICAL SCIENTIST>400 Fatalities ReportedNorth [facility] HospitalTROPONIN [id number] 00:50:14 Test Item Value Reference Range Interpretation Comments TROPONIN I (test code = 0.006 ng/mL <=0.034 9971975789) OMAYRA (test code = OMAYRA) Reference (Normal) [...] biotin. Lab Interpretation Normal (test code = 51150-7) [facility]AL [id number] 00:47:12 Test Item Value Reference Range Interpretation Comments NT-proBNP (test code = 291 pg/mL <=125 H 9900886779) OMAYRA (test code = OMAYRA) Biotin has been reported to cause a negative bias, interpret results relative to patient's use of biotin. Lab Interpretation (test Abnormal code = 88637-7) [facility]OLIC PANEL (80286)2022-12-11 00:41:12 Test Item Value Reference Range Interpretation Comments NA (test code = 126 mmol/L 135-145 L 7211895471) K (test code = 4.0 mmol/L 3.5-5.0 3135390864) CL (test code = 82 mmol/L 98-108 L 3372628775) CO2 TOTAL (test code = 40 mmol/L 23-31 H 4568312682) AGAP (test code = 4 2-16 4466379000) BUN (test code = 16 mg/dL 7-23 3857268966) GLUCOSE (test code = 97 mg/dL 70-110 0283490984) CREATININE (test code = 0.67 mg/dL 0.60-1.25 0422955034) TOTAL BILI (test code = 0.8 mg/dL 0.1-1.5 9928926318) CALCIUM (test code = 8.5 mg/dL 8.6-10.6 L 4394027263) T PROTEIN (test code = 5.9 g/dL 6.3-8.2 L 1229710464) ALBUMIN (test code = 3.5 g/dL 3.5-5.0 3880317084) ALK PHOS (test code = 49 U/L 34-122 7461762667) ALTv (test code = 18 U/L 5-50 1742-6) AST(SGOT) (test code = 11 U/L 13-40 L 4060801368) eGFR (test code = 119.4 mL/min/1.73m2 3351048687) OMAYRA (test code = OMAYRA) Association of [...] tests). Lab Interpretation Abnormal (test code = 59719-2) [facility] WITH [id number] 00:29:08 Test Item Value Reference Range Interpretation Comments WBC (test code = 10.15 See_Comment [Automated 1990-2) message] The sy stem which generated this [...] RDW-SD (test code = 46.7 fL 38.5-51.6 34250-3) RDW-CV (test code = 13.6 % 12.1-15.4 788-0) PLT (test code = 263 See_Comment [Automated 777-3) message] The sy stem which generated this result transmitted reference range : 150 - 328 10*3/ ?L. The reference r pasquale was not used to interpret this result as normal/abnormal . MPV (test code = 9.7 fL 9.8-13.0 L 43424-8) NRBC/100 WBC (test 0.0 See_Comment [Automat ed code = 6997742667) message] The system which generated this result transmitted reference range : 0.0 - 10.0 /100 WBCs. The refer ence range was not u sed to interpret th is result as normal/abnormal . NRBC x10^3 (test code See_Comment [Auto mated = 4203840923) message] The s ystem which generated this result transmitted reference range : 10*3/?L. The reference range was not used to interpret this result as normal/abnormal . GRAN MAT (NEUT) % 71.6 % (test code = 770-8) IMM GRAN % (test code 0.90 % = 6891943602) LYMPH % (test code = 17.6 % 736-9) MONO % (test code = 8.7 % 5905-5) EOS % (test code = 1.0 % 713-8) BASO % (test code = 0.2 % 706-2) GRAN MAT x10^3(ANC) 7.27 10*3/uL 1.99-6.95 H (test code = 4119141728) IMM GRAN x10^3 (test 0.09 10*3/uL 0.00-0.06 H code = [id number]) LYMPH x10^3 (test code 1.79 10*3/uL 1.09-3.23 = 731-0) MONO x10^3 (test code 0.88 10*3/uL 0.36-1.02 = 742-7) EOS x10^3 (test code = 0.10 10*3/uL 0.06-0.53 711-2) BASO x10^3 (test code 0.01-0.09 = 704-7) Lab Interpretation Abnormal (test code = 79849-8) [id number]:14:48 Test Item Value Reference Range Interpretation Comments LACTIC ACID (test code = 1.30 mmol/L 0.50-2.20 [id number]) Lab Interpretation (test code = Normal 15340-4) [facility] METABOLIC PANEL (NA, K, CL, CO2, GLUCOSE, BUN, CREATININE, CA)2022-12-04 11:06:33 Test Item Value Reference Range Interpretation Comments NA (test code = 123 mmol/L 135-145 L [id number]) K (test code = 3.8 mmol/L 3.5-5.0 3832597959) CL (test code = 86 mmol/L 98-108 L 4262450477) CO2 TOTAL (test code = 36 mmol/L 23-31 H 8428204952) AGAP (test code = 1 2-16 L 6291679169) BUN (test code = 22 mg/dL 7-23 9923143015) GLUCOSE (test code = 195 mg/dL 70-110 H 1750176497) CREATININE (test code = 0.76 mg/dL 0.60-1.25 4275180293) CALCIUM (test code = 8.2 mg/dL 8.6-10.6 L 0781988394) eGFR (test code = 103.3 mL/min/1.73m2 3036602725) OMAYRA (test code = OMAYRA) Association of [...] tests). Lab Interpretation Abnormal (test code = 87325-3) [facility] WITH [id number] 10:54:29 Test Item Value Reference Range Interpretation [...] RDW-SD (test code = 44.1 fL 38.5-51.6 45046-3) RDW-CV (test code = 13.6 % 12.1-15.4 788-0) PLT (test code = 247 See_Comment [Automated 777-3) message] The sy stem which generated this result transmitted reference range : 150 - 328 10*3/ ?L. The reference r pasquale was not used to interpret this result as normal/abnormal . MPV (test code = 9.5 fL 9.8-13.0 L 70166-4) NRBC/100 WBC (test 0.0 See_Comment [Automat ed code = 7936308342) message] The system which generated this result transmitted reference range : 0.0 - 10.0 /100 WBCs. The refer ence range was not u sed to interpret th is result as normal/abnormal . NRBC x10^3 (test code See_Comment [Auto mated = 0170234624) message] The s ystem which generated this result transmitted reference range : 10*3/?L. The reference range was not used to interpret this result as normal/abnormal . GRAN MAT (NEUT) % 93.0 % (test code = 770-8) IMM GRAN % (test code 0.90 % = 0379616957) LYMPH % (test code = 3.2 % 736-9) MONO % (test code = 2.9 % 5905-5) EOS % (test code = 0.0 % 713-8) BASO % (test code = 0.0 % 706-2) GRAN MAT x10^3(ANC) 7.94 10*3/uL 1.99-6.95 H (test code = 9021456996) IMM GRAN x10^3 (test 0.08 10*3/uL 0.00-0.06 H code = 0531513185) LYMPH x10^3 (test code 0.27 10*3/uL 1.09-3.23 L = 731-0) MONO x10^3 (test code 0.25 10*3/uL 0.36-1.02 L = 742-7) EOS x10^3 (test code = 0.06-0.53 L 711-2) BASO x10^3 (test code 0.01-0.09 = 704-7) Lab Interpretation Abnormal (test code = 65121-6) [facility] Metabolic Panel (NA, K, CL, CO2, GLUCOSE, BUN, CREATININE, CA)2022-12-03 10:44:53 Test Item Value Reference Range Interpretation Comments NA (test code = 126 mmol/L 135-145 L 8115652217) K (test code = 4.0 mmol/L 3.5-5.0 Slight 9883008137) hemolysis CL (test code = 89 mmol/L 98-108 L 2531289894) CO2 TOTAL (test code 32 mmol/L 23-31 H = 4623703061) AGAP (test code = 5 2-16 3273647245) BUN (test code = 15 mg/dL 7-23 Slight 2679027475) hemolysis GLUCOSE (test code = 115 mg/dL 70-110 H 7625588504) CREATININE (test code 0.63 mg/dL 0.60-1.25 = 7056451975) CALCIUM (test code = 7.7 mg/dL 8.6-10.6 L 2706725509) eGFR (test code = 128.2 mL/min/1.73m2 7361413810) OMAYRA (test code = OMAYRA) Association of [...] tests). Lab Interpretation Abnormal (test code = 98930-3) [id number] 10:44:53 Test Item Value Reference Range Interpretation Comments MAGNESIUM (test code = 9090523838) 1.6 mg/dL 1.7-2.4 L Lab Interpretation (test code = Abnormal 07064-7) [facility] with [id number] 10:39:13 Test Item Value Reference Range Interpretation Comments WBC (test code = 11.40 See_Comment H [Automated 0110-2) message] The system which generated this result [...] RDW-SD (test code = 45.4 fL 38.5-51.6 72763-2) RDW-CV (test code = 13.6 % 12.1-15.4 788-0) PLT (test code = 254 See_Comment [Automated 777-3) message] The system which generated this result transmit anirudh reference range : 150 - 328 10*3/ ?L. The reference range was not u sed to interpret th is result as normal/abnormal . MPV (test code = 10.2 fL 9.8-13.0 38487-8) NRBC/100 WBC (test 0.0 See_Comment [Automat ed code = 8367836784) message] The system which generated this result transmit anirudh reference range : 0.0 - 10.0 /100 WBCs. The reference range was not used to interpret this result as normal/abnormal . NRBC x10^3 (test code See_Comment [Auto mated = 0434824459) message] The system which generated this result transmit anirudh reference range : 10*3/?L. The reference range was not used to interpret this result as normal/abnormal . GRAN MAT (NEUT) % 90.0 % (test code = 770-8) IMM GRAN % (test code 0.90 % = 3709902115) LYMPH % (test code = 5.9 % 736-9) MONO % (test code = 2.8 % 5905-5) EOS % (test code = 0.2 % 713-8) BASO % (test code = 0.2 % 706-2) GRAN MAT x10^3(ANC) 10.27 10*3/uL 1.99-6.95 H (test code = 8020366322) IMM GRAN x10^3 (test 0.10 10*3/uL 0.00-0.06 H code = 6949107950) LYMPH x10^3 (test code 0.67 10*3/uL 1.09-3.23 L = 731-0) MONO x10^3 (test code 0.32 10*3/uL 0.36-1.02 L = 742-7) EOS x10^3 (test code = 0.06-0.53 L 711-2) BASO x10^3 (test code 0.01-0.09 = 704-7) Lab Interpretation Abnormal (test code = 06973-3) [facility] METABOLIC PANEL (NA, K, CL, CO2, GLUCOSE, BUN, CREATININE, CA)2022-12-02 06:20:42 Test Item Value Reference Range Interpretation Comments NA (test code = 124 mmol/L 135-145 L 7869129831) K (test code = 4.5 mmol/L 3.5-5.0 3215354514) CL (test code = 78 mmol/L 98-108 L 4580037436) CO2 TOTAL (test code = 37 mmol/L 23-31 H 2531901759) AGAP (test code = 9 2-16 4490715183) BUN (test code = 14 mg/dL 7-23 2795483848) GLUCOSE (test code = 93 mg/dL 70-110 5336622546) CREATININE (test code = 0.71 mg/dL 0.60-1.25 4610137713) CALCIUM (test code = 9.1 mg/dL 8.6-10.6 6654138243) eGFR (test code = 111.7 mL/min/1.73m2 5743798794) OMAYRA (test code = OMAYRA) Association of [...] tests). Lab Interpretation Abnormal (test code = 00828-8) [facility] [id number] 12:22:32 Test Item Value Reference Range Interpretation Comments TROPONIN I (test code = 0.008 ng/mL <=0.034 6634943295) OMAYRA (test code = OMAYRA) Reference (Normal) [...] biotin. Lab Interpretation Normal (test code = 27140-4) [facility] (NA, K, CL, CO2, GLUCOSE, BUN, CREATININE, CA)2022-12-01 12:11:11 Test Item Value Reference Range Interpretation Comments NA (test code = 124 mmol/L 135-145 L 8167288022) K (test code = 4.2 mmol/L 3.5-5.0 6712570600) CL (test code = 79 mmol/L 98-108 L 1721775698) CO2 TOTAL (test code = 37 mmol/L 23-31 H 7927286509) AGAP (test code = 8 2-16 6067036985) BUN (test code = 16 mg/dL 7-23 9700708162) GLUCOSE (test code = 105 mg/dL 70-110 6037451146) CREATININE (test code = 0.67 mg/dL 0.60-1.25 4506230134) CALCIUM (test code = 8.6 mg/dL 8.6-10.6 6465887076) eGFR (test code = 119.4 mL/min/1.73m2 0258401696) OMAYRA (test code = OMAYRA) Association of [...] tests). Lab Interpretation Abnormal (test code = 74902-9) [facility] WITH [id number] 11:59:32 Test Item Value Reference Range Interpretation Comments WBC (test code = 12.17 See_Comment H [Automated 6690-2) message] The system [...] RDW-SD (test code = 43.8 fL 38.5-51.6 35568-9) RDW-CV (test code = 13.2 % 12.1-15.4 788-0) PLT (test code = 208 See_Comment [Automated 777-3) message] The system which generated this result transmit anirudh reference range : 150 - 328 10*3/ ?L. The reference range was not u sed to interpret th is result as normal/abnormal . MPV (test code = 9.8 fL 9.8-13.0 89482-8) NRBC/100 WBC (test 0.0 See_Comment [Automat ed code = 3849794342) message] The system which generated this result transmit anirudh reference range : 0.0 - 10.0 /100 WBCs. The reference range was not used to interpret this result as normal/abnormal . NRBC x10^3 (test code See_Comment [Auto mated = 1853506712) message] The system which generated this result transmit anirudh reference range : 10*3/?L. The reference range was not used to interpret this result as normal/abnormal . GRAN MAT (NEUT) % 85.9 % (test code = 770-8) IMM GRAN % (test code 0.50 % = 2928216437) LYMPH % (test code = 6.8 % 736-9) MONO % (test code = 6.3 % 5905-5) EOS % (test code = 0.3 % 713-8) BASO % (test code = 0.2 % 706-2) GRAN MAT x10^3(ANC) 10.44 10*3/uL 1.99-6.95 H (test code = 6356410675) IMM GRAN x10^3 (test 0.06 10*3/uL 0.00-0.06 code = 8634333600) LYMPH x10^3 (test code 0.83 10*3/uL 1.09-3.23 L = 731-0) MONO x10^3 (test code 0.77 10*3/uL 0.36-1.02 = 742-7) EOS x10^3 (test code = 0.04 10*3/uL 0.06-0.53 L 711-2) BASO x10^3 (test code 0.03 10*3/uL 0.01-0.09 = 704-7) Lab Interpretation Abnormal (test code = 04440-9) [facility] METABOLIC PANEL (NA, K, CL, CO2, GLUCOSE, BUN, CREATININE, CA)2022-11-28 17:17:23 Test Item Value Reference Range Interpretation Comments NA (test code = 120 mmol/L 135-145 L 5068833731) K (test code = 4.3 mmol/L 3.5-5.0 1302249690) CL (test code = 77 mmol/L 98-108 L 1608297857) CO2 TOTAL (test code = 40 mmol/L 23-31 H 0846263550) AGAP (test code = 3 2-16 0364392244) BUN (test code = 15 mg/dL 7-23 0235261138) GLUCOSE (test code = 151 mg/dL 70-110 H 1763075224) CREATININE (test code = 0.63 mg/dL 0.60-1.25 2266168016) CALCIUM (test code = 8.2 mg/dL 8.6-10.6 L 9368548626) eGFR (test code = 128.2 mL/min/1.73m2 4728001933) OMAYRA (test code = OMAYRA) Association of [...] tests). Lab Interpretation Abnormal (test code = 53352-2) [facility] 06:54:10 Test Item Value Reference Range Interpretation Comments MAGNESIUM (test code = 0231652303) 1.6 mg/dL 1.7-2.4 L Lab Interpretation (test code = Abnormal 86741-8) [facility] (NA, K, CL, CO2, GLUCOSE, BUN, CREATININE, CA)2022-11-28 01:29:53 Test Item Value Reference Range Interpretation Comments NA (test code = 120 mmol/L 135-145 L 1303822328) K (test code = 3.9 mmol/L 3.5-5.0 1734716431) CL (test code = 77 mmol/L 98-108 L 6390623818) CO2 TOTAL (test code = 36 mmol/L 23-31 H 2405979519) AGAP (test code = 7 2-16 3425832487) BUN (test code = 17 mg/dL 7-23 1135095042) GLUCOSE (test code = 85 mg/dL 70-110 8360720983) CREATININE (test code = 0.76 mg/dL 0.60-1.25 2942285842) CALCIUM (test code = 8.3 mg/dL 8.6-10.6 L 9452153770) eGFR (test code = 103.3 mL/min/1.73m2 4133918532) OMAYRA (test code = OMAYRA) Association of [...] tests). Lab Interpretation Abnormal (test code = 02661-7) [facility] METABOLIC PANEL (NA, K, CL, CO2, GLUCOSE, BUN, CREATININE, CA)2022-11-27 20:36:26 Test Item Value Reference Range Interpretation Comments NA (test code = 122 mmol/L 135-145 L 5953380788) K (test code = 3.9 mmol/L 3.5-5.0 0979949690) CL (test code = 79 mmol/L 98-108 L 5493329085) CO2 TOTAL (test code = 37 mmol/L 23-31 H 1422551659) AGAP (test code = 6 2-16 5825644516) BUN (test code = 17 mg/dL 7-23 2692749673) GLUCOSE (test code = 113 mg/dL 70-110 H 3191908313) CREATININE (test code = 0.78 mg/dL 0.60-1.25 2537895422) CALCIUM (test code = 7.8 mg/dL 8.6-10.6 L 7633290932) eGFR (test code = 100.2 mL/min/1.73m2 5518975077) OMAYRA (test code = OMAYRA) Association of [...] tests). Lab Interpretation Abnormal (test code = 87645-3) [facility]A1C)2022-11-27 18:21:30 Test Item Value Reference Range Interpretation Comments HGB A1C (test code = 5.9 % 4.0-5.7 H 4548-4) OMAYRA (test code = OMAYRA) Reference RangesNormal: <5.7%Prediabetes: 5.7 - 6.4%Diabetes: > 6.5% Lab Interpretation (test Abnormal code = 38456-4) [facility] [id number] 06:12:58 Test Item Value Reference Range Interpretation Comments TROPONIN I (test code = 0.007 ng/mL <=0.034 6658003130) OMAYRA (test code = OMAYRA) Reference (Normal) [...] biotin. Lab Interpretation Normal (test code = 19207-8) [facility] 06:10:43 ALCOHOL<10mg/dL11/27/2022 12:10 AM [facility]<10 Yyddsqfn63-128 Toxic>100 Depression of ANALYTICAL SCIENTIST>400 [facility] [id number] 06:09:37 Test Item Value Reference Range Interpretation Comments NT-proBNP (test code = 311 pg/mL <=125 H 5978101220) OMAYRA (test code = OMAYRA) Biotin has been reported to cause a negative bias, interpret results relative to patient's use of biotin. Lab Interpretation (test Abnormal code = 91246-2) [facility]. METABOLIC PANEL ([id number])2022-11-27 06:08:02 Test Item Value Reference Range Interpretation Comments NA (test code = 116 mmol/L 135-145 LL 8025025938) K (test code = 4.1 mmol/L 3.5-5.0 8969725227) CL (test code = 75 mmol/L 98-108 L 8055424617) CO2 TOTAL (test code = 34 mmol/L 23-31 H 2803570032) AGAP (test code = 7 2-16 8694704638) BUN (test code = 16 mg/dL 7-23 4793252574) GLUCOSE (test code = 70 mg/dL 70-110 7711722182) CREATININE (test code = 0.62 mg/dL 0.60-1.25 5453890337) TOTAL BILI (test code = 1.2 mg/dL 0.1-1.1 H 1579811202) CALCIUM (test code = 8.1 mg/dL 8.6-10.6 L 9166008784) T PROTEIN (test code = 6.3 g/dL 6.3-8.2 7986259631) ALBUMIN (test code = 3.8 g/dL 3.5-5.0 7280664030) ALK PHOS (test code = 58 U/L 34-122 7252534071) ALTv (test code = 15 U/L 5-50 1742-6) AST(SGOT) (test code = 13 U/L 13-40 7946746130) eGFR (test code = 130.6 mL/min/1.73m2 6708251256) OMAYRA (test code = OMAYRA) Association of [...] tests). Lab Interpretation Abnormal (test code = 22238-8) [facility] WITH [id number] 05:45:18 Test Item Value Reference Range Interpretation Comments WBC (test code = 9.18 See_Comment [Automated 5162-2) message] The sy stem which generated this result transmitted reference range : 4.20 - 10.70 10*3/?L. The reference range was not used to interpret this result as normal/abnormal . RBC (test code = 4.49 See_Comment [Automated 580-8) message] The sy stem which generated this [...] RDW-SD (test code = 40.1 fL 38.5-51.6 11621-3) RDW-CV (test code = 12.6 % 12.1-15.4 788-0) PLT (test code = 216 See_Comment [Automated 698-3) message] The sy stem which generated this result transmitted reference range : 150 - 328 10*3/ ?L. The reference r pasquale was not used to interpret this result as normal/abnormal . MPV (test code = 9.4 fL 9.8-13.0 L 91571-1) NRBC/100 WBC (test 0.0 See_Comment [Automat ed code = 0312570152) message] The system which generated this result transmitted reference range : 0.0 - 10.0 /100 WBCs. The refer ence range was not u sed to interpret th is result as normal/abnormal . NRBC x10^3 (test code See_Comment [Auto mated = 9056019368) message] The s ystem which generated this result transmitted reference range : 10*3/?L. The reference range was not used to interpret this result as normal/abnormal . GRAN MAT (NEUT) % 79.1 % (test code = 770-8) IMM GRAN % (test code 0.90 % = 1984165536) LYMPH % (test code = 11.8 % 736-9) MONO % (test code = 6.8 % 5905-5) EOS % (test code = 1.2 % 713-8) BASO % (test code = 0.2 % 706-2) GRAN MAT x10^3(ANC) 7.27 10*3/uL 1.99-6.95 H (test code = 6653202047) IMM GRAN x10^3 (test 0.08 10*3/uL 0.00-0.06 H code = 7048059065) LYMPH x10^3 (test code 1.08 10*3/uL 1.09-3.23 L = 731-0) MONO x10^3 (test code 0.62 10*3/uL 0.36-1.02 = 742-7) EOS x10^3 (test code = 0.11 10*3/uL 0.06-0.53 711-2) BASO x10^3 (test code 0.01-0.09 = 704-7) Lab Interpretation Abnormal (test code = 28423-2) [facility] [id number] 09:49:54 Test Item Value Reference Range Interpretation Comments NT-proBNP (test code = 294 pg/mL <=125 H 9176379187) OMAYRA (test code = OMAYRA) Biotin has been reported to cause a negative bias, interpret results relative to patient's use of biotin. Lab Interpretation (test Abnormal code = 67924-0) [facility]. METABOLIC PANEL ([id number])2022-11-19 09:41:52 Test Item Value Reference Range Interpretation Comments NA (test code = 120 mmol/L 135-145 L 7093988068) K (test code = 4.4 mmol/L 3.5-5.0 3312647541) CL (test code = 80 mmol/L 98-108 L 8299663199) CO2 TOTAL (test code = 34 mmol/L 23-31 H 9784001284) AGAP (test code = 6 2-16 4869922649) BUN (test code = 10 mg/dL 7-23 4464618507) GLUCOSE (test code = 93 mg/dL 70-110 6675880973) CREATININE (test code = 0.77 mg/dL 0.60-1.25 5713844243) TOTAL BILI (test code = 1.1 mg/dL 0.1-1.1 8188857963) CALCIUM (test code = 8.7 mg/dL 8.6-10.6 9400567326) T PROTEIN (test code = 6.9 g/dL 6.3-8.2 8638697639) ALBUMIN (test code = 4.1 g/dL 3.5-5.0 6066429045) ALK PHOS (test code = 60 U/L 34-122 0209277658) ALTv (test code = 14 U/L 5-50 1742-6) AST(SGOT) (test code = 13 U/L 13-40 9814215001) eGFR (test code = 101.7 mL/min/1.73m2 9514864416) OMAYRA (test code = OMAYRA) Association of [...] tests). Lab Interpretation Abnormal (test code = 91357-2) [facility] WITH [id number] 09:02:29 Test Item Value Reference Range Interpretation Comments WBC (test code = 8.30 See_Comment [Automated 8103-2) message] The sy stem which generated this result transmitted reference range : 4.20 - 10.70 10*3/?L. The reference range was not used to interpret this result as normal/abnormal . RBC (test code = 4.67 See_Comment [Automated 052-8) message] The sy stem which generated this [...] RDW-SD (test code = 42.3 fL 38.5-51.6 28700-7) RDW-CV (test code = 12.9 % 12.1-15.4 788-0) PLT (test code = 252 See_Comment [Automated 777-3) message] The sy stem which generated this result transmitted reference range : 150 - 328 10*3/ ?L. The reference r pasquale was not used to interpret this result as normal/abnormal . MPV (test code = 9.6 fL 9.8-13.0 L 75112-1) NRBC/100 WBC (test 0.0 See_Comment [Automat ed code = 1335333588) message] The system which generated this result transmitted reference range : 0.0 - 10.0 /100 WBCs. The refer ence range was not u sed to interpret th is result as normal/abnormal . NRBC x10^3 (test code See_Comment [Auto mated = 7133773373) message] The s ystem which generated this result transmitted reference range : 10*3/?L. The reference range was not used to interpret this result as normal/abnormal . GRAN MAT (NEUT) % 70.7 % (test code = 770-8) IMM GRAN % (test code 1.00 % = 2258836701) LYMPH % (test code = 16.0 % 736-9) MONO % (test code = 10.5 % 5905-5) EOS % (test code = 1.3 % 713-8) BASO % (test code = 0.5 % 706-2) GRAN MAT x10^3(ANC) 5.87 10*3/uL 1.99-6.95 (test code = 4009838327) IMM GRAN x10^3 (test 0.08 10*3/uL 0.00-0.06 H code = 5585555187) LYMPH x10^3 (test code 1.33 10*3/uL 1.09-3.23 = 731-0) MONO x10^3 (test code 0.87 10*3/uL 0.36-1.02 = 742-7) EOS x10^3 (test code = 0.11 10*3/uL 0.06-0.53 711-2) BASO x10^3 (test code 0.04 10*3/uL 0.01-0.09 = 704-7) Lab Interpretation Abnormal (test code = 44712-0) [facility] METABOLIC PANEL (NA, K, CL, CO2, GLUCOSE, BUN, CREATININE, CA)2022-11-10 23:42:55 Test Item Value Reference Range Interpretation Comments NA (test code = 121 mmol/L 135-145 L 7873025175) K (test code = 4.7 mmol/L 3.5-5.0 3846774612) CL (test code = 82 mmol/L 98-108 L 2061261237) CO2 TOTAL (test code = 34 mmol/L 23-31 H 6547068335) AGAP (test code = 5 2-16 3371832308) BUN (test code = 15 mg/dL 7-23 2225542155) GLUCOSE (test code = 120 mg/dL 70-110 H 4634658563) CREATININE (test code = 0.75 mg/dL 0.60-1.25 6200392692) CALCIUM (test code = 7.7 mg/dL 8.6-10.6 L 2817555881) eGFR (test code = 104.8 mL/min/1.73m2 7083743346) OMAYRA (test code = OMAYRA) Association of [...] tests). Lab Interpretation Abnormal (test code = 94184-6) [facility] METABOLIC PANEL (NA, K, CL, CO2, GLUCOSE, BUN, CREATININE, CA)2022-11-10 17:59:59 Test Item Value Reference Range Interpretation Comments NA (test code = 121 mmol/L 135-145 L 1034054428) K (test code = 4.3 mmol/L 3.5-5.0 2309164226) CL (test code = 81 mmol/L 98-108 L 5202029639) CO2 TOTAL (test code = 38 mmol/L 23-31 H 7493599531) AGAP (test code = 2 2-16 0850837680) BUN (test code = 15 mg/dL 7-23 4527144393) GLUCOSE (test code = 113 mg/dL 70-110 H 6881071901) CREATININE (test code = 0.74 mg/dL 0.60-1.25 8153626842) CALCIUM (test code = 7.5 mg/dL 8.6-10.6 L 8905260941) eGFR (test code = 106.5 mL/min/1.73m2 0841213691) OMAYRA (test code = OMAYRA) Association of [...] tests). Lab Interpretation Abnormal (test code = 10259-7) [facility] [id number] 13:08:23 Test Item Value Reference Range Interpretation Comments NT-proBNP (test code = 177 pg/mL <=125 H 0994900019) OMAYRA (test code = OMAYRA) Biotin has been reported to cause a negative bias, interpret results relative to patient's use of biotin. Lab Interpretation (test Abnormal code = 24519-0) [facility] [id number] 08:23:33 Test Item Value Reference Range Interpretation Comments TROPONIN I (test code = 0.004 ng/mL <=0.034 9415822467) OMAYRA (test code = OMAYRA) Reference (Normal) [...] biotin. Lab Interpretation Normal (test code = 21464-9) [facility] ([id number])2022-11-09 08:12:09 Test Item Value Reference Range Interpretation Comments NA (test code = 123 mmol/L 135-145 L 9553185146) K (test code = 4.2 mmol/L 3.5-5.0 2896065863) CL (test code = 78 mmol/L 98-108 L 1790186990) CO2 TOTAL (test code = 34 mmol/L 23-31 H 3504155660) AGAP (test code = 11 2-16 8671764840) BUN (test code = 8 mg/dL 7-23 1684556460) GLUCOSE (test code = 113 mg/dL 70-110 H 5773197742) CREATININE (test code = 0.87 mg/dL 0.60-1.25 8028495479) TOTAL BILI (test code = 1.2 mg/dL 0.1-1.1 H 6395689687) CALCIUM (test code = 8.8 mg/dL 8.6-10.6 5419682352) T PROTEIN (test code = 7.6 g/dL 6.3-8.2 7128407713) ALBUMIN (test code = 4.5 g/dL 3.5-5.0 1818895514) ALK PHOS (test code = 72 U/L 34-122 0464298005) ALTv (test code = 13 U/L 5-50 1742-6) AST(SGOT) (test code = 13 U/L 13-40 2092071846) eGFR (test code = 88.3 mL/min/1.73m2 7512559459) OMAYRA (test code = OMAYRA) Association of [...] tests). Lab Interpretation Abnormal (test code = 25116-4) [facility] [id number] 08:11:14 Test Item Value Reference Range Interpretation Comments LIPASE (test code = 2442713081) 108 U/L 0-220 Lab Interpretation (test code = Normal 12854-4) [facility] [id number] 07:59:28 Test Item Value Reference Range Interpretation Comments WBC (test code = 8.95 See_Comment [Automated message] 5190-2) The system [employer] generated this result transmitted ref erence range: 4.20 - 1 0.70 10*3/?L. The re ference range was not u sed to interpret this result as normal/abnor mal. RBC (test code = 5.07 See_Comment [Automated message] 019-8) The system [employer] generated this result transmitted ref erence range: [...] RDW-SD (test code 41.1 fL 38.5-51.6 = 14057-0) RDW-CV (test code 12.5 % 12.1-15.4 = 788-0) PLT (test code = 235 See_Comment [Automated message] 777-3) The system whic h generated this result transmitted ref erence range: 150 - 32 8 10*3/?L. The re ference range was not u sed to interpret this result as normal/abnor mal. MPV (test code = 9.8 fL 9.8-13.0 53441-0) NRBC/100 WBC (test 0.0 See_Comment [Automat ed message] code = 5811171131) The syste m which generated this result transmitted ref erence range: 0.0 - 10 .0 /100 WBCs. The refer ence range was not u sed to interpret this result as normal/abnor mal. NRBC x10^3 (test See_Comment [Automated message] code = 6025724080) The syste m which generated this result transmitted ref erence range: 10*3/?L. The reference range was not used to interpr et this result as normal/abnormal . GRAN MAT (NEUT) % 56.9 % (test code = 770-8) IMM GRAN % (test 0.40 % code = 0243144311) LYMPH % (test code 29.4 % = 736-9) MONO % (test code 9.5 % = 5905-5) EOS % (test code = 3.0 % 713-8) BASO % (test code 0.8 % = 706-2) GRAN MAT 5.09 10*3/uL 1.99-6.95 x10^3(ANC) (test code = 8924765577) IMM GRAN x10^3 0.04 10*3/uL 0.00-0.06 (test code = 5464756156) LYMPH x10^3 (test 2.63 10*3/uL 1.09-3.23 code = 731-0) MONO x10^3 (test 0.85 10*3/uL 0.36-1.02 code = 742-7) EOS x10^3 (test 0.27 10*3/uL 0.06-0.53 code = 711-2) BASO x10^3 (test 0.07 10*3/uL 0.01-0.09 code = 704-7) [facility] URINALYSIS, [id number] 19:05:00 Test Item Value Reference Range Interpretation [...] U APPEAR (test code = clear 3267) [facility] URINALYSIS, [id number] 19:05:00 Test Item Value Reference Range Interpretation [...] U APPEAR (test code = clear 3267) [facility] URINALYSIS, [id number] 19:05:00 Test Item Value Reference Range Interpretation [...] U APPEAR (test code = clear 3267) [facility] [id number] 17:53:531. ?No hydronephrosis or nephrolithiasis. 2. ?Mild [...] hernia with mild circumferential distalesophageal thickening (2:16). Stonewall density within the distal stomach andat the [...] hernia with mild circumferential distalesophageal thickening (2:16). Stonewall density within the distal stomach andat the [...] small right hydrocele.5. Additional findings as above. [facility]38 Test Item Value Reference Range Interpretation Comments APPEARANCE (test code = Cloudy Clear A 1245641758) COLOR (test code = Red Yellow A 8214819285) PH (test code = 4.8-8.0 8787198899) SP GRAVITY (test code = 1.003-1.030 3953642792) GLU U QUAL (test code = 50 mg/dL Normal A 8276684278) BLOOD (test code = 3+ Negative A 7817407657) KETONES (test code = Negative Negative 3190140834) PROTEIN (test code = 100 mg/dL Negative A 2887-8) UROBILIN (test code = Normal Normal 7185155116) BILIRUBIN (test code = Negative Negative 8248409169) NITRITE (test code = Negative Negative 1780718875) LEUK DIANELYS (test code = Negative Negative 8745474174) RBC/HPF (test code = >182 See_Comment H [Autom ated message] 9690905457) The system [employer] generated this result transmit anirudh reference range : 0 - 3 HPF. The refe rence range was not u sed to interpret th is result as normal/abnormal . WBC/HPF (test code = >182 See_Comment H [Autom ated message] 9269734911) The system [employer] generated this result transmit anirudh reference range : 0 - 5 HPF. The refe rence range was not u sed to interpret th is result as normal/abnormal . BACTERIA (test code = Moderate Negative A 5814912889) WBC CLUMPS (test code = See_Comment H [Au tomated message] 2113687023) The system [employer] generated this result transmit anirudh reference range : <=1 HPF. The refere nce range was not u sed to interpret th is result as normal/abnormal . Lab Interpretation (test Abnormal code = 95238-8) [facility] Metabolic Panel (NA, K, CL, CO2, GLUCOSE, BUN, CREATININE, CA)2020-12-12 17:13:57 Test Item Value Reference Range Interpretation Comments NA (test code = 140 mmol/L 135-145 6535391886) K (test code = 4.5 mmol/L 3.5-5.0 0609660635) CL (test code = 100 mmol/L 98-108 4169894607) CO2 TOTAL (test code = 35 mmol/L 23-31 H 3848361972) AGAP (test code = 2-16 3755204720) BUN (test code = 25 mg/dL 7-23 H 7794274435) GLUCOSE (test code = 114 mg/dL 70-110 H 0476342776) CREATININE (test code = 1.18 mg/dL 0.60-1.25 4872080735) CALCIUM (test code = 9.0 mg/dL 8.6-10.6 1077582480) eGFR Calculation mL/min/1.73m2 (Non-) (test code = 7362470438) eGFR Calculation mL/min/1.73m2 () (test code = 2326161049) OMAYRA (test code = OMAYRA) Association of [...] tests). Lab Interpretation Abnormal (test code = 79941-8) [facility] with [id number] 16:56:10 Test Item Value Reference Range Interpretation Comments WBC (test code = See_Comment [Automated 7803-2) message] The sy stem which generated this result transmitted reference range : 4.20 - 10.70 10*3/?L. The reference range was not used to interpret this result as normal/abnormal . RBC (test code = See_Comment [Automated 269-8) message] The sy stem which generated this [...] RDW-SD (test code = 42.9 fL 38.5-51.6 18984-7) RDW-CV (test code = 11.9 % 12.1-15.4 L 788-0) PLT (test code = See_Comment [Automated 777-3) message] The sy stem which generated this result transmitted reference range : 150 - 328 10*3/ ?L. The reference r pasquale was not used to interpret this result as normal/abnormal . MPV (test code = 10.8 fL 9.8-13.0 24325-7) NRBC/100 WBC (test See_Comment [Automat ed code = 6606174418) message] The system which generated this result transmitted reference range : 0.0 - 10.0 /100 WBCs. The refer ence range was not u sed to interpret th is result as normal/abnormal . NRBC x10^3 (test code <0.01 See_Comment [Auto mated = 5839965761) message] The s ystem which generated this result transmitted reference range : 10*3/?L. The reference range was not used to interpret this result as normal/abnormal . GRAN MAT (NEUT) % 63.5 % (test code = 770-8) IMM GRAN % (test code 0.40 % = 3755665000) LYMPH % (test code = 23.9 % 736-9) MONO % (test code = 6.7 % 5905-5) EOS % (test code = 4.3 % 713-8) BASO % (test code = 1.2 % 706-2) GRAN MAT x10^3(ANC) 4.27 10*3/uL 1.99-6.95 (test code = 6258954105) IMM GRAN x10^3 (test 0.03 10*3/uL 0.00-0.06 code = 0828373511) LYMPH x10^3 (test code 1.61 10*3/uL 1.09-3.23 = 731-0) MONO x10^3 (test code 0.45 10*3/uL 0.36-1.02 = 742-7) EOS x10^3 (test code = 0.29 10*3/uL 0.06-0.53 711-2) BASO x10^3 (test code 0.08 10*3/uL 0.01-0.09 = 704-7) Lab Interpretation Abnormal (test code = 99809-9) [facility] URINALYSIS, [id number] 18:56:00 Test Item Value Reference Range Interpretation [...] 3267) Lab Interpretation (test code Abnormal = 16797-9) [facility] [id number] 18:56:00 Test Item Value Reference Range Interpretation [...] 3267) Lab Interpretation (test code Abnormal = 23003-5) [facility]- XR CHEST [id number] 16:22:00 Patient Name: JUAN C MONGE Unit No: [id number] EXAMS: CPT CODE: [id number] XR CHEST 1V 85805 EXAMINATION: - XR CHEST 1V. LOCATION: B2. HISTORY: S/P ICD. COMPARISON: None. TECHNIQUE: Single AP view ofthe chest was obtained. FINDINGS: The right lung apex is excluded from the ubgad-hl-lltt. The heartis normal in size. Left AICD device is present. The lungs are clear. No acute osseous abnormality is identified. IMPRESSION: The right lung apex is excluded from the sucdi-fp-oyqs. No acute cardiopulmonary abnormality is identified. at 1622 Reported and signed by: Latanya Marshall MD CC: Tyrell Mckeon Technologist: JOSELYN Mathews, RT(R) Transcrpt Date/Tm/Trnsp: 06/19/2020 (162) t.SDR.PR7 Orig Print D/T: S: 06/19/2020 (5924) [facility] NAME: JUAN C MONGE [address] PHYS: [place] [address] : 1960 AGE: 59 SEX: M LOC: Z.354 A PHONE #: [phone] EXAM DATE: 06/19/2020 STATUS: ADM IN FAX #: [phone] RADIOLOGY NO: PAGE 1 Signed ReportBASIC METABOLIC [id number] 13:17:00 Test Item Value Reference Range Interpretation [...] code = MG/DL 8.7-9.7 CA) Comments to Survey Questionnaire Designer: NURSE WILL BRING SPECIMEN TO LABIs this a LINE draw? N [id number] 13:17:00 Test Item Value Reference Range Interpretation Comments MAGNESIUM (test code = MAG) MG/DL 1.6-2.3 Comments to Survey Questionnaire Designer: NURSE WILL BRING SPECIMEN TO LABIs this a LINE draw? N BASIC METABOLIC [id number] 13:17:00 Test Item Value Reference Range Interpretation [...] 9.1 MG/DL 8.4-10.2 N CA) Comments to Survey Questionnaire Designer: NURSE WILL BRING SPECIMEN TO LABIs this a LINE draw? N [id number] 13:17:00 Test Item Value Reference Range Interpretation Comments MAGNESIUM (test code = MAG) 2.2 MG/DL 1.6-2.3 N Comments to Survey Questionnaire Designer: NURSE WILL BRING SPECIMEN TO LABIs this a LINE draw? N BASIC METABOLIC [id number] 13:16:00 Test Item Value Reference Range Interpretation [...] code = MG/DL 8.7-9.7 CA) Comments to Survey Questionnaire Designer: NURSE WILL BRING SPECIMEN TO LABIs this a LINE draw? N [id number] 13:16:00 Test Item Value Reference Range Interpretation Comments MAGNESIUM (test code = MAG) MG/DL 1.6-2.3 Comments to Survey Questionnaire Designer: NURSE WILL BRING SPECIMEN TO LABIs this a LINE draw? N BASIC METABOLIC [id number] 13:14:00 Test Item Value Reference Range Interpretation [...] code = CA) MG/DL 8.7-9.7 Comments to Survey Questionnaire Designer: NURSE WILL BRING SPECIMEN TO LABIs this a LINE draw? N [id number] 13:14:00 Test Item Value Reference Range Interpretation Comments MAGNESIUM (test code = MAG) MG/DL 1.6-2.3 Comments to Survey Questionnaire Designer: NURSE WILL BRING SPECIMEN TO LABIs this a LINE draw? N BASIC METABOLIC [id number] 13:13:00 Test Item Value Reference Range Interpretation [...] code = CA) MG/DL 8.7-9.7 Comments to Survey Questionnaire Designer: NURSE WILL BRING SPECIMEN TO LABIs this a LINE draw? N [id number] 13:13:00 Test Item Value Reference Range Interpretation Comments MAGNESIUM (test code = MAG) MG/DL 1.6-2.3 Comments to Survey Questionnaire Designer: NURSE WILL BRING SPECIMEN TO LABIs this a LINE draw? N PROTHROMBIN [id number] 13:08:00 Test Item Value Reference Range Interpretation [...] myocar dial infarction. 2.0 - 3.0 3. [employer]og[employer] Press Operator al prosthesis hear t valves, recurre nt systemic emboli sm. 3.0 - 4.5 Comments to Survey Questionnaire Designer: NURSE WILL BRING SPECIMEN TO LABPTT ACTIVATED 2020-06-19 13:08:00 Test Item Value Reference Range Interpretation Comments PTT ACTIVATED (test code = APTT) 30.8 SECONDS 25.1-36.5 N Comments to Survey Questionnaire Designer: NURSE WILL BRING SPECIMEN TO LABCBC W/AUTO [...] 0.00 K/mm3 0.0-0.1 N NRBC#) Comments to Survey Questionnaire Designer: NURSE WILL BRING SPECIMEN TO LABIs this a LINE draw? N COVID 19 Asymptomatic IH [id number] 12:14:00 Test Item Value Reference Range Interpretation [...] Notes Date/Time Note Provider Source 2023-03-20 00:11:00-00:00 [facility] ([facility]) Hospitalist Discharge Summary REPORT#:[id number] REPORT STATUS: Signed DATE:03/20/23 TIME: 0011 PATIENT: JUAN C MONGE UNIT #: [id number] ROOM/BED: [facility]-A : 58 AGE: 62 SEX: M ATTEND: Rudy Xiao MD ADM AUTHOR: Rudy Xiao MD * ALL edits or amendments must be made on the 4Home/computer document * General Information Discharge date: 03/19/23 [...] cigarette smoking or nicotine patches. PLAN - Medical Support Specialist on cessation - Cont. nicotine patch PATIENT [...] cigarette smoking or nicotine patches. PLAN - Medical Support Specialist on cessation - Cont. nicotine patch Code [...] BEDTIME. Comments: #30 - SIG Obtained From DrFirst MEMANTINE (NAMENDA) 5 MG TAB 5 MILLIGRAM ORAL DAILY. Comments: #90 - SIG Obtained From Fir RIVAROXABAN (XARELTO) 15 MG TAB 15 MILLIGRAM [...] Temp 36.4 03/19 1123 Pulse Ox 100 07/ 1000 B/P 138/69 07/ 1000 B/P Mean 97 07/01 1000 Pulse 93 07/01 1000 Resp 8 07/ 1000 O2 Delivery Nasal cannula / 0800 O2 Flow Rate 2 07/01 0800 FiO2 40 07/ 0718 24 hour I O ending at 0700: 07/02 0700 07/ 1900 Intake Total 1547.00 Output Total Balance [...] normal inspection, painless ran ge of motion Neuro/ANALYTICAL SCIENTIST: alert, normal speech Skin: dry Psychiatry: abnl [...] or < 18.5 BMI status/follow-up: nml BMI,no cancer genetic counselor needed Electronically Signed by Rudy Xiao MD on 3 at 0016 RPT #:[id number] END OF REPORT 2023-03-19 12:19:00-00:00 [facility] ([facility]) Cardiology Progress Note REPORT#:[id number] REPORT STATUS: Signed DATE:03/19/23 TIME: 1219 PATIENT: JUAN C MONGE UNIT #: [id number] ROOM/BED: [address] : 56 AGE: 62 SEX: M ATTEND: Rudy Xiao ADM AUTHOR: Tyrell Mckeon MD * ALL edits or amendments must be made on the [employer]Home/computer document * Subjective Chief complaint: Dyspnea Patient [...] Mean Ox Delivery Rate 03/19 1123 97.5 07 1000 93 8 138/69 97 100 07/01 0900 81 19 130/66 92 99 07/01 0800 Nasal 2 cannula 03/19 0800 96 18 129/63 90 96 07/01 0735 97.7 07/ 0718 99 Nasal 5 40 cannula 03/19 0701 122 29 160/72 104 95 07/01 0600 88 19 134/60 96 07/01 0500 89 20 134/62 95 07/01 0400 91 17 139/64 98 07/01 0318 103 23 143/67 97 07/01 0100 102 21 148/86 98 07/01 0000 [...] no edema Musculoskeletal: full range of motion Neuro/ANALYTICAL SCIENTIST: alert, oriented X 3, CN II-XII intact [...] Dr. Tenorio as outpatient. at 1002 [facility] #:[id number] END OF REPORT 2023-03-18 15:47:00-00:00 [id number] [facility] [address] [place] [address] PATIENT NAME: JUAN C MONGE ADMIT DATE: 03/15/23 ACCOUNT NO: [id number] ROOM NO: Z.347 AGE: 62 REPORT TYPE: ECHOCARDIOGRAM SEX: M ADMITTING PHYSICIAN:Rudy Xiao MD ATTENDING PHYSICIAN:Rudy Xiao MD *[facility]* [address] [place] [address] Transthoracic Echocardiogram Patient: Juan C Monge Study Date: 03/18/2023 BP: 122 / 66 Location: [facility] URN: [id number] 222 : 1960 Age: 62 Height: 70 in / 177.8 cm Gender: M Weight: 14 9.7 lb / 68 kg BMI/BSA: 21.5 kg/m 2 / 1.83 m 2 *Ordering Physician: * Omid Tenorio MD *Interpreting Physician: * Omid Tenorio MD *Cash Control Specialist: * Vick Aleman Indications: CAD. Study data: Transthoracic echocardiogram. Proced ure: Transthoracic echocardiography was performed. Images were obta ined using a [employer] cardiac ultrasound machine. Image quality was adequate. [...] 2.46 m/sec --------- Pulmonic valve Value Ref [place] v, ED 0.94 m/sec --------- Aortic root [...] PATIENT NAME: JUAN C MONGE 2023-03-18 10:16:00-00:00 [facility] ([facility]) Hospitalist Progress Note REPORT#:[id number] REPORT STATUS: Signed DATE:03/18/23 TIME: 1015 PATIENT: JUAN C MONGE UNIT #: [id number] ROOM/BED: [address] : 56 AGE: 62 SEX: M ATTEND: Rudy Xiao ADM AUTHOR: Jenny Meyers MD R2 * ALL edits or amendments must be made on the [employer]Home/computer document * Jenny Meyers 03/18/23 1016: Subjective Chief complaint: SOB, hypotension HPI: 62 yo M with PMH of COPD on 2L NC, Hypertension, Anxiety, Systolic CHF s/p AICD, Afib on xarelto, CVA and dementia presented as a transfer from [facility] for evaluation of shortness of breath. Pt [...] Pulse Resp B/P B/P Pulse O2 O2 Flow FiO2 Mean Ox Delivery Rate 03/18 0800 [...] normal inspection, painless ran ge of motion Neuro/ANALYTICAL SCIENTIST: alert, normal speech Skin: dry Psychiatry: abnl [...] cigarette smoking or nicotine patches. PLAN - Medical Support Specialist on cessation - Cont. nicotine patch Code [...] or < 18.5 BMI status/follow-up: nml BMI,no cancer genetic counselor needed Attestations Attestation needed: teaching physician Rudy Xiao 03/18/23 1743: Attestations Teaching Physician Attestation F/U visit w/ resident: I saw the patient with the resident and . . . agree with the resident's findings and plan. echo unremarkable await aicd interrogation dvt ppx: on xarelto at 1023 Electronically Signed by Rudy Xiao MD on 3 at 1743 RPT #:[id number] END OF REPORT 2023-03-18 06:54:00-00:00 [facility] ([facility]) Cardiology Progress Note REPORT#:[id number] REPORT STATUS: Signed DATE:03/18/23 TIME: 653 PATIENT: JUAN C MONGE UNIT #: [id number] ROOM/BED: [address] : 58 AGE: 62 SEX: M ATTEND: Rudy Xiao ADM AUTHOR: Tyrell Mckeon MD * ALL edits or amendments must be made on the [employer]/computer document * Subjective Chief complaint: Dyspnea Patient [...] no edema Musculoskeletal: full range of motion Neuro/ANALYTICAL SCIENTIST: alert, oriented X 3, CN II-XII intact [...] Oxygen support as needed. at 1220 RPT #:[id number] END OF REPORT 2023-03-17 13:48:00-00:00 [facility] ([facility] Hospitalist Progress Note REPORT#:[id number] REPORT STATUS: Signed DATE:03/17/23 TIME: 1347 PATIENT: JUAN C MONGE UNIT #: [id number] ROOM/BED: [address] : 56 AGE: 62 SEX: M ATTEND: Rudy Xiao ADM AUTHOR: Jenny Meyers MD R2 * ALL edits or amendments must be made on the el DPSI/computer document * Jenny Meyers 03/17/23 1348: Subjective Chief complaint: SOB, hypotension HPI: 62 yo M with PMH of COPD on 2L NC, Hypertension, Anxiety, Systolic CHF s/p AICD, Afib on xarelto, CVA and dementia presented as a transfer from [facility] for evaluation of shortness of breath. Pt [...] Pulse Resp B/P B/P Pulse O2 O2 Flow FiO2 Mean Ox Delivery Rate 03/17 1400 [...] normal inspection, painless ran ge of motion Neuro/ANALYTICAL SCIENTIST: alert, oriented X 3, normal speech Skin: [...] cigarette smoking or nicotine patches. PLAN - Medical Support Specialist on cessation - Cont. nicotine patch Code Status: Full Code VTE Ppx: Rivaroxiban Diet: Cardiac Quality: Gen Med Crit Care VTE Prophylaxis VTE prophylaxis initiated: yes (rivaroxiban) Current Medications Current medication review: I attest that the foregoing medication list in t medical record is true, accurate, and complete to the best of my knowled ge. BMI Screening > 25 or < 18.5 BMI status/follow-up: nml BMI,no cancer genetic counselor needed Attestations Attestation needed: teaching physician Rudy Xiao 03/17/23 1405: Attestations Teaching Physician Attestation F/U visit w/ resident: I saw the patient with the resident and . . . agree with the resident's findings and plan. await echo and aicd interrogation cont xarenetta has home o2 at 1511 Electronically Signed by Rudy Xiao MD on 3 at 0024 RPT #:[id number] END OF REPORT 2023-03-17 06:38:00-00:00 [facility] ([facility]) Cardiology Progress Note REPORT#:[id number] REPORT STATUS: Signed DATE:03/17/23 TIME: 06 PATIENT: JUAN C MONGE UNIT #: [id number] ROOM/BED: [address] : 58 AGE: 62 SEX: M ATTEND: Rudy Xiao ADM AUTHOR: Tyrell Mckeon MD * ALL edits or amendments must be made on the [employer] document * Subjective Chief complaint: Dyspnea Patient [...] cannula 03/16 2000 88 16 97 03/16 195 Nasal 4 cannula 03/16 1935 103 29 [...] no edema Musculoskeletal: full range of motion Neuro/ANALYTICAL SCIENTIST: alert, oriented X 3, CN II-XII intact Skin: dry, intact Psychiatry: normal affect, normal judgment/insig ht, normal mood Results Findings/Data: Laboratory Tests 03/16 03/16 09 0929 Chemistry Sodium (137 - 145 MMOL/L) [...] (Auto) (14 - 44 %) 3.3 L Piatt % (Auto) (4 - 13 %) 3.9 L Eos % (Auto) (0 - 6 %) 0.0 Baso % (Auto) (0 - 2 %) 0.1 Neut # (Auto) (2.0 - 7.6 K/mm3) 9.37 H Lymph # (Auto) (1.0 - 3.8 K/mm3) 0.33 L Piatt # (Auto) (0.1 - 0.8 K/mm3) 0.40 [...] therapy. Oxygen support as needed. at 1220 [facility] #:[id number] END OF REPORT 2023-03-16 20:57:00-00:00 [facility] ([facility] Cardiology Progress Note REPORT#:[id number] REPORT STATUS: Signed DATE:03/16/23 TIME: 2056 PATIENT: JUAN C MONGE UNIT #: [id number] ROOM/BED: [address] : 56 AGE: 62 SEX: M ATTEND: Rudy Xiao ADM AUTHOR: Tyrell Mckeon MD * ALL edits or amendments must be made on the [employer]/computer document * Subjective Chief complaint: Dyspnea Patient [...] low FiO2 Mean Ox Delivery Rate 03/16 Nasal 4 36 cannula 03/16 1959 Nasal [...] no edema Musculoskeletal: full range of motion Neuro/ANALYTICAL SCIENTIST: alert, oriented X 3, CN II-XII intact [...] pg/mL) 738 Folate (ng/mL) 4.9 Laboratory Tests 06/28 0929 Hematology WBC (3.8 - 9.8 K/MM3) [...] (Auto) (14 - 44 %) 3.3 L Piatt % (Auto) (4 - 13 %) 3.9 L Eos % (Auto) (0 - 6 %) 0.0 Baso % (Auto) (0 - 2 %) 0.1 Neut # (Auto) (2.0 - 7.6 K/mm3) 9.37 H Lymph # (Auto) (1.0 - 3.8 K/mm3) 0.33 L Piatt # (Auto) (0.1 - 0.8 K/mm3) 0.40 [...] Oxygen support as needed. at 0637 RPT #:[id number] END OF REPORT 2023-03-16 08:07:00-00:00 [facility] ([facility]) Hospitalist Progress Note REPORT#:[id number] REPORT STATUS: Signed DATE:03/16/23 TIME: 806 PATIENT: JUAN C MONGE UNIT #: [id number] ROOM/BED: 347-A : 56 AGE: 62 SEX: M ATTEND: Rudy Xiao ADM AUTHOR: Jenny Meyers MD R2 * ALL edits or amendments must be made on the [employer]Home/computer document * Jenny Meyers 03/16/23 0807: Subjective Chief complaint: SOB, hypotension HPI: 62 yo M with PMH of COPD on 2L NC, Hypertension, Anxiety, Systolic CHF s/p AICD, Afib on xarelto, CVA and dementia presented as a transfer from [facility] for evaluation of shortness of breath. Pt [...] normal inspection, painless ran ge of motion Neuro/ANALYTICAL SCIENTIST: alert, oriented X 3, normal speech Skin: [...] cigarette smoking or nicotine patches. PLAN - Medical Support Specialist on cessation - Cont. nicotine patch Code [...] or < 18.5 BMI status/follow-up: nml BMI,no cancer genetic counselor needed Attestations Attestation needed: teaching physician Rudy Xiao 03/16/232006: Attestations Teaching Physician Attestation F/U visit w/ resident: I saw the patient with the resident and . . . agree with the resident's findings and plan. echo cards folloing aicd interrogation cont angelina has home o2 at 1416 Electronically Signed by Rudy Xiao MD on 3 at 2006 RPT #:[id number] END OF REPORT 2023-03-15 20:17:00-00:00 [id number] [place] [address] PATIENT NAME: JUAN C MONGE ADMIT DATE: 03/15/23 ACCOUNT NO: [id number] ROOM NO: [facility] AGE: 62 REPORT TYPE: ELECTROCARDIOGRAM SEX: M ADMITTING PHYSICIAN:Rudy Xiao MD ATTENDING PHYSICIAN:Rudy Xiao MD Order: [id number] Test Reason : CAD Test Date/Time Stamp: [...] NAME: JUAN C MONGE 22 2023-03-15 16:03:00-00:00 [id number] [place] [address] PATIENT NAME: JUAN C MONGE ADMIT DATE: 03/15/23 ACCOUNT NO: [id number] ROOM NO: Z.347 AGE: 62 REPORT TYPE: [...] who presented to the Emergency Room at [facility] in [facility] with complaints of increasing shortness of breath. [...] PHYSICAL EXAMINATION: PATIENT NAME: JUAN C MONGE 222 GENERAL: A well-nourished male, in no acute [...] Dictated: 03/15/2023 16:03:59 Date Transcribed: 03/15/2023 16:59:18 P/GARFIELD Receipt ID: [id number] Authenticated by Tyrell Mckeon MD On 03/15/20 06:28:21 PM at 0628 PATIENT NAME: JUAN C MONGE 2023-03-15 10:52:00-00:00 [facility] ([facility] REPORT#:[id number] REPORT STATUS: Signed DATE:03/15/23 TIME: 1052 PATIENT: JUAN C MONGE UNIT #: [id number] ROOM/BED: [facility]-A : 58 AGE: 62 SEX: M ATTEND: Rudy Xiao ADM AUTHOR: Clare Velazquez PA * ALL edits or amendments must be made on the el DPSI/computer document * Clare Velazquez 03/15/23 1052: History of Present Illness HPI Chief complaint: SOB, hypotension HPI: 62 yo M with PMH of COPD on 2L NC, Hypertension, Anxiety, Systolic CHF s/p AICD, Afib on xarelto, CVA and dementia presented as a transfer from [facility] for evaluation of shortness of breath. Pt [...] Status Admin Aspirin 81 MG DAILY 03/16 09 AC (ASPIRIN EC) PO 04/15 09 Memantine 5 MG DAILY 03/16 09 AC (NAMENDA) PO 04/15 09 Acetaminophen 500 MG Q4H PRN PRN 03/15 [...] no muscle sp asm, no paraspinal tenderness Neuro/ANALYTICAL SCIENTIST: alert, oriented X 3, normal speech, n [...] (Auto) (1.0 - 3.8 K/mm3) 0.51 L Piatt # (Auto) (0.1 - 0.8 K/mm3) 0.10 [...] is alert and oriented x3 #Tobacco abuse cancer genetic counselor on cessation. start nicotine patch VTE [...] Current BMI: 21.6 BMI status/follow-up: nml BMI,no cancer genetic counselor needed Rudy Xiao 03/15/23 2233: Attestations [...] Velazquez on 02/18 04/10 at 2343 RPT #:[id number] END OF REPORT 2023-03-15 07:02:00-00:00 [facility] EMERGENCY PROVIDER REPORT REPORT#:[id number] REPORT STATUS: Signed DATE:03/15/23 TIME: 701 PATIENT: JUAN C MONGE UNIT #: [id number] ROOM/BED: [address] AGE: 62 SEX: M PCP PHYS: Undefined Provider SERVICE AUTHOR: Royce Davison MD LOCATION: [facility] * ALL edits or amendments must be made on the 4Home/computer document * See Addendum HPI-General Illness Free Text HPI Notes Free Text HPI Notes 62-year-old female past medical history COPD, hypertension, hyperlipidemia, A- fib on Xarelto [facility]. Compla ining of shortness of breath over [...] Result Date Time Pulse Ox 99 03/15 521 B/P 92/58 03/15 521 B/P Mean 69 03/15 521 Temp 36.9 03/15 521 Pulse 78 03/15 521 Resp 20 03/15 521 O2 Delivery Nasal cannula 03/15 534 O2 Flow Rate 2 03/15 534 Last Documented: Result Date Time Pulse Ox 98 03/15 0645 B/P 90/53 03/15 645 B/P Mean 65 03/15 645 O2 Delivery Room air 03/15 645 Pulse 72 03/15 645 Resp 16 03/15 645 O2 Flow Rate 2 03/15 611 Temp 36.9 03/15 521 Review of Vital Signs Reviewed Free Text [...] (Auto) (1.0 - 3.8 K/mm3) 0.51 L Piatt # (Auto) (0.1 - 0.8 K/mm3) 0.10 Eos # (Auto) (0.0 - 0.2 K/mm3) 0.00 Baso # (Auto) (0.0 - 0.2 K/mm3) 0.01 Nucleated RBCs # (Man) (0.0 - 0.1 K/mm3) 0.00 Recent Impressions: RADIOLOGY - XR CHEST 1V 03/15 0647 Report Impression - Status: SIGNED Entered: 03/15/2023 07 IMPRESSION: No acute radiographic abnormality Impression By: [...] Davison MD on at 1240 Addendum 3: 03/15/23 1918 by Royce Davison MD Patient Addendum Addendum [...] a management plan; BIPAP management, evaluation of pa madeline's response to treatment; frequent reassessment ; [...] Royce Davison MD on at 1918 RPT #:[id number] END OF REPORT 2020-06-20 06:17:00-00:00 [facility] ([facility] Cardiology Progress Note REPORT#:[id number] REPORT STATUS: Signed DATE:06/20/20 TIME: 616 PATIENT: JUAN C MONGE UNIT #: [id number] ROOM/BED: [address] : 58 AGE: 59 SEX: M ATTEND: Geoffrey Mckeon MD ADM AUTHOR: Tyrell Mckeon MD * ALL edits or amendments must be made on the 4Home/computer document * Subjective Chief Complaint: AICD Patient [...] Potassium Chloride 10 MEQ BID PO Ipratropium [place] 0.5 MG RTQ6H INH Cefazolin Sodium 1,000 [...] no edema Musculoskeletal: full range of motion Neuro/ANALYTICAL SCIENTIST: alert, oriented X 3, CN II-XII intact [...] % (Auto) (14 - 44 %) 27.8 Piatt % (Auto) (4 - 13 %) 8.6 Eos % (Auto) (0 - 6 %) 1.7 Baso % (Auto) (0 - 2 %) 0.6 Neut # (Auto) (2.0 - 7.6 K/mm3) 3.99 Lymph # (Auto) (1.0 - 3.8 K/mm3) 1.82 Piatt # (Auto) (0.1 - 0.8 K/mm3) 0.56 [...] Report Impression - Status: SIGNED Entered: 06/19/2020 9675 IMPRESSION: The right lung apex is excluded from the field-o f-view. No acute cardiopulmonary abnormality is identified. Impression By: [email or web address] Zo Marshall MD Diagnosis, Assessment Plan Free Text DxA P Notes Free Text DxA P Notes: IMP: Chronic systolic heart failure s/p [employer] AICD - single lead PLAN: AICD interrogation d/c home if stable. at 0818 [facility] #:[id number] END OF REPORT 2020-06-19 16:03:00-00:00 [id number] [place] [address] PATIENT NAME: JUAN C MONGE ADMIT DATE: 06/19/20 ACCOUNT NO: [id number] ROOM NO: Z[facility] AGE: 59 REPORT TYPE: OPERATIVE REPORT SEX: M ADMITTING PHYSICIAN:Tyrell Mckeon MD ATTENDING PHYSICIAN:Tyrell Mckeon MD OPERATION DATE: 06/19/2020 PROCEDURES: 1. Non-thoracotomy single lead AICD placement. 2. Defibrillation threshold testing. PREOPERATIVE DIAGNOSES: 1. 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 2. [place] [employer] class III congesti ve heart failure. POSTOPERATIVE DIAGNOSES: 1. 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 2. [place] [employer] class III congesti ve heart failure. SURGEON: Tyrell Mckeon MD LIGHTING ADVISER: None. ANESTHESIA: Local anesthesia with 1% lidocaine [...] was flushed with antibiotic- containing solution. A 7-[place]amb[place] sheath was advanced over the wire and [...] DATA: 1. Pulse generator: [employer] Cory model [id number], s erial #[id number]. 2. Right ventricular lead; [employer] model 7120Q/ 58, serial number [id number]. STIMULATION THRESHOLD DATA: Right ventricle R waves [...] Tyrell Mckeon MD WT: OP:KINGS/LUIS ANGEL/ALEX Conf#: [id number]/DID#: [id number] cc: Omid Tenorio MD Authenticated by Tyrell Mckeon MD On 06/23/20 06:02:06 AM at 0602 PATIENT NAME: JUAN C MONGE 01 13:14:00-00:00 [id number] [place] [address] PATIENT NAME: JUAN C MONGE ADMIT DATE: 06/19/20 ACCOUNT NO: [id number] ROOM NO: Z.354 AGE: 59 REPORT TYPE: ELECTROCARDIOGRAM SEX: M ADMITTING PHYSICIAN:Tyrell Mckeon MD ATTENDING PHYSICIAN:Tyerll Mckeon MD Order: [id number] Test Reason : CHF Test Date/Time Stamp: [...] AM Referred By: Tyrell Mckeon Confirmed by:TIARA BLUE MD Electronically Signed by Tiara Blue MD on 11/08 at 1157 PATIENT NAME: JUAN C MONGE 19
--- NOTE | 2023-05-01 19:55 | RAD REPORT ---
EXAM DESCRIPTION: Em Single View05/01/2023 7:45 pm CLINICAL HISTORY: sob COMPARISON: March 2023 FINDINGS: The lungs are moderately to markedly hyperaerated The lungs appear clear of acute infiltrate. The heart is normal size. Pacemaker lead in place IMPRESSION: COPD without visualization acute abnormality
--- NOTE | 2023-05-01 19:59 | ER ---
Nurse's Notes [facility] Name: Juan C Monge Age: 62 yrs Sex: Male : 1960 Arrival Date: 05/01/2023 Time: 19:24 Bed 8 Private MD: Diagnosis: COPD/ Chronic obstructive pulmonary disease, unspecified Presentation: 05/01 19:28 Chief complaint: EMS states: Around 181, pt started to have shortness of breath. Pt is kd3 normally on 2 L N/C. Pt has history of COPD and anxiety. Pt was wheezing on arrival. An A\T\A treatment was given and Solu-Medrol. Pt lung sounds are now clear. Coronavirus screen: Vaccine status: Patient reports receiving the 2nd dose of the covid vaccine. Ebola Screen: No symptoms or risks identified at this time. Initial Sepsis Screen: Does the patient meet any 2 criteria? No. Patient's initial sepsis screen is negative. Does the patient have a suspected source of infection? No. Patient's initial sepsis screen is negative. Risk Assessment: Do you want to hurt yourself or someone else? Patient reports no desire to harm self or others. Onset of symptoms was May 01, 2023. 19:28 Method Of Arrival: EMS: [facility] kd3 19:28 Acuity: JESSI 3 kd3 Triage Assessment: 19:31 General: Appears in no apparent distress. Behavior is calm, cooperative. Pain: Denies kd3 pain. Cardiovascular: Patient's skin is warm and dry. Respiratory: Airway is patent Trachea midline Respiratory effort is even, unlabored, Respiratory pattern is regular, symmetrical. Historical: - PMHx: 19:31 Atrial Fib; Hypertension; Myocardial infarction; CVA; COPD; Hyperlipidemia; skull kd3 fracture; - PSHx: 19:31 Appendectomy; defibrillator; kd3 - Immunization history:: Adult Immunizations up to date. - Social history:: Smoking status: Patient reports the use of cigarette tobacco products, smokes one-half pack cigarettes per day. - Family history:: not pertinent. Screenin:54 [place] ED Fall Risk Assessment (Adult) History of falling in the last 3 months, kd3 including since admission No falls in past 3 months (0 pts) Confusion or Disorientation No (0 pts) Intoxicated or Sedated No (0 pts) Impaired Gait No (0 pts) Mobility Assist Device Used No (0 pt) Altered Elimination No (0 pt) Score/Fall Risk Level 0 - 2 = Low Risk Maintained a safe environment. Abuse screen: Denies threats or abuse. Denies injuries from another. Nutritional screening: No deficits noted. Tuberculosis screening: No symptoms or risk factors identified. Assessment: 19:36 General: PT states that he feels better since being transported to the ER and does not kd3 want treatment. Pt states that he did not want to come to the ER. . Vital Signs: 19:28 Weight 58.97 kg; kd3 19:37 BP 133 / 83; Pulse 94; Resp 16; Temp 97.8(O); Pulse Ox 91% on 2 lpm NC; kd3 19:53 Pulse 86; Resp 15; Pulse Ox 94% on 2 lpm NC; kd3 ED Course: 19:28 Patient arrived in ED. sb4 19:28 Charlie Valencia MD is Attending Physician. rt 19:28 Genet Mcdowell RN is Primary Nurse. kd3 19:31 Triage completed. kd3 19:31 Arm band placed on right wrist. kd3 19:47 XRAY Chest (1 view) In Process Unspecified. EDMS 19:54 Patient has correct armband on for positive identification. Provided Education on: . kd3 20:09 No provider procedures requiring assistance completed. IV discontinued, intact, kd3 bleeding controlled, No redness/swelling at site. Pressure dressing applied. Administered Medications: No medications were administered Medication: 19:54 VIS not applicable for this client. kd3 Outcome: 19:58 Discharge ordered by . rt 20:09 Discharged to home via wheelchair. kd3 20:09 Condition: stable 20:09 Discharge instructions given to patient, Instructed on discharge instructions, follow up and referral plans. Demonstrated understanding of instructions, follow-up care, medications, Prescriptions given X 1. 20:17 Patient left the ED. kd3 Signatures: Dispatcher [employer] EDMS Genet Mcdowell RN RN [email or web address] Hiwot Yates, PA-C PA-C sb4 Charlie Valencia MD MD rt
--- NOTE | 2023-05-01 19:59 | EDPHYS ---
Physician Documentation [facility] Name: Juan C Monge Age: 62 yrs Sex: Male : 1960 Arrival Date: 05/01/2023 Time: 19:24 Bed 8 Private MD: ED Physician Charlie Valencia HPI: 05/01 19:34 This 62 yrs old Male presents to ER via EMS with complaints of Shortness of breath. rt 19:34 Patient with history of COPD presents to the ED with dyspnea starting this morning, rt worsening throughout the day. Denies cough, chest pain. Denies other acute complaints. Patient did receive a nebulizer treatment as well as Solu-Medrol by EMS which she states completely resolved his symptoms, denies any shortness of breath at this time. Symptoms are moderate severity, no other aggravating or alleviating factors.. Historical: - PMHx: 19:31 Atrial Fib; Hypertension; Myocardial infarction; CVA; COPD; Hyperlipidemia; skull kd3 fracture; - PSHx: 19:31 Appendectomy; defibrillator; kd3 - Immunization history:: Adult Immunizations up to date. - Social history:: Smoking status: Patient reports the use of cigarette tobacco products, smokes one-half pack cigarettes per day. - Family history:: not pertinent. ROS: 19:34 Constitutional: Negative for fever, chills, and weight loss, Cardiovascular: Negative rt for chest pain, palpitations, and edema, Abdomen/GI: Negative for abdominal pain, nausea, vomiting, diarrhea, and constipation, MS/Extremity: Negative for injury and deformity, Skin: Negative for injury, rash, and discoloration, Neuro: Negative for headache, weakness, numbness, tingling, and seizure, Psych: Negative for depression, anxiety, suicide ideation, homicidal ideation, and hallucinations. 19:34 Respiratory: Positive for shortness of breath, wheezing. Exam: 19:34 Constitutional: This is a well developed, well nourished patient who is awake, alert, rt and in no acute distress. Head/Face: Normocephalic, atraumatic. Chest/axilla: Normal chest wall appearance and motion. Nontender with no deformity. No lesions are appreciated. Cardiovascular: Regular rate and rhythm with a normal S1 and S2. No gallops, murmurs, or rubs. Normal PMI, no JVD. No pulse deficits. Respiratory: Lungs have equal breath sounds bilaterally, clear to auscultation and percussion. No rales, rhonchi or wheezes noted. No increased work of breathing, no retractions or nasal flaring. Abdomen/GI: Soft, non-tender, with normal bowel sounds. No distension or tympany. No guarding or rebound. No evidence of tenderness throughout. Skin: Warm, dry with normal turgor. Normal color with no rashes, no lesions, and no evidence of cellulitis. MS/ Extremity: Pulses equal, no cyanosis. Neurovascular intact. Full, normal range of motion. Neuro: Awake and alert, GCS 15, oriented to person, place, time, and situation. Cranial nerves II-XII grossly intact. Motor strength 5/5 in all extremities. Sensory grossly intact. Cerebellar exam normal. Normal gait. Psych: Awake, alert, with orientation to person, place and time. Behavior, mood, and affect are within normal limits. Vital Signs: 19:28 Weight 58.97 kg; kd3 19:37 BP 133 / 83; Pulse 94; Resp 16; Temp 97.8(O); Pulse Ox 91% on 2 lpm NC; kd3 19:53 Pulse 86; Resp 15; Pulse Ox 94% on 2 lpm NC; kd3 MDM: 19:28 Patient medically screened. rt 20:23 Differential diagnosis: Pneumonia, pneumothorax, COPD. Data reviewed: vital signs, rt nurses notes, radiologic studies. Independent interpretation of the following test(s) in the Emergency Department X-Ray: My interpretation is No consolidation seen on interpretation of the x-ray images. Care significantly affected by the following chronic conditions: Chronic Obstructive Pulmonary Disease. Care significantly affected by the following Social Determinants of Health: Continued tobacco abuse. Counseling: I had a detailed discussion with the patient and/or guardian regarding: the historical points, exam findings, and any diagnostic results supporting the discharge/admit diagnosis, radiology results, the need for outpatient follow up, smoking cessation. Response to treatment: the patient's symptoms have resolved after treatment. ED course: Patient refused any diagnostic studies other than chest x-ray. States the symptoms have resolved. He understands risk of not completing work-up, has decision-making capacity. Patient to follow-up as an outpatient, strict return precautions discussed.. 05/01 19:29 Order name: XRAY Chest (1 view); Complete Time: 19:57 rt 05/01 19:29 Order name: EKG; Complete Time: 19:29 rt Administered Medications: No medications were administered Disposition Summary: 05/01/23 19:58 Discharge Ordered Location: Home rt Problem: new rt Symptoms: have improved rt Condition: Stable rt Diagnosis - COPD/ Chronic obstructive pulmonary disease, unspecified rt Followup: rt - With: Private Physician - When: 2 - 3 days - Reason: Discharge Instructions: - Discharge Summary Sheet rt - Chronic Obstructive Pulmonary Disease rt Forms: - Medication Reconciliation Form rt - Thank You Letter rt - Antibiotic Education rt - Prescription Opioid Use rt - Patient Portal Instructions rt - Leadership Thank You Letter rt Prescriptions: - Prednisone 20 mg Oral Tablet - take 2 tablets by ORAL route once daily for 5 days; 10 tablet; Refills: 0, rt Product Selection Permitted Signatures: Dispatcher [employer] Genet Alcazar RN RN kd3 Charlie Valencia MD MD rt Corrections: (The following items were deleted from the chart) 20:02 19:29 Cardiac monitoring ordered. rt jb4 20:03 19:29 EKG - Nurse/Tech ordered. rt jb4 20:03 19:29 IV Saline Lock ordered. rt jb4 20:03 19:29 Labs collected and sent ordered. rt jb4 20:03 19:29 Oxygen Per Protocol ordered. rt jb4 20:03 19:29 O2 Sat Monitoring ordered. rt jb4
[2023-05-01 20:24] VITALS: BP 133/83; TEMP 97.8; O2SAT 94
== END 2023-05-01 20:17 | disposition home or self-care (01) ==
LOC: ER 19:24
DX: J44.9 Chronic obstructive pulmonary disease, unspecified (principal); I10 Essential (primary) hypertension; I25.2 Old myocardial infarction; F17.210 Nicotine dependence, cigarettes, uncomplicated; Z95.810 Presence of automatic (implantable) cardiac defibrillator
CPT/HCPCS: 71045; 99283

== ENCOUNTER 2023-05-28 16:23 | Inpatient (IN) | payer OTHER ==
--- OUTSIDE RECORDS SUMMARY | 2023-05-28 16:46 | XMS REPORT | Continuity of Care Document ---
:1960 Author Organization [facility] [place] [facility] t Address [address] [place] [address] Care Team Providers Name Role Phone MILY [...] MILY MAY Attending Clinician Unavailable Doctor Unassigned, [place] Attending Clinician Unavailable Christa SAWYER, Mily De Leon Attending Clinician [phone] Uday ZAMORA, Taylor Mary Attending Clinician [...] Unavailable Rachael Flowers MD Attending Clinician LEOBARDO SOLAN Attending Clinician Unavailable Leobardo Sloan MD Attending Clinician BESSIE OSWALD Attending Clinician Unavailable STEPHANIE ALMONTE Attending Clinician Unavailable Stephanie Amlonte MD Attending Clinician IZA VARMA Attending Clinician [...] MD Attending Clinician Jeanette Weaver Attending Clinician [facility] Main Attending Clinician Unavailable Gokul [...] Type Policy Number Effective Date Expiration Date [facility] [id number] 2018 MEDICARE GOLD 00:00:00 HU[employer] CHOICE [id number] 2022 00:00:00 Problems Condition Condition Condition Status Onset Resolution Last Treating Co mments Source Name Details Category Date Date Treatment Clinician Date 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 5-31 it y of ion ion 00:00: [address] Hypotensio Hypotensio Disease Active U nivers [...] nivers failure failure 11-11 ity of 00:00: [place] 00 Medical Branch Closed Closed Disease Active 2013-09 Overview: Univer s fracture fracture 2- Formattin ity of of zygoma of zygoma 00:00: g of this [place] 00 note Medical might be Branch different from the original. Chronic Fracture - not acute Fall Fall Disease Active 2013-09 Univers 2-12 ity of 00:00: [place] [address] Medical Branch Atrial Atrial Disease Active 2013-09 Univers fibrillati fibrillati 10-28 it y of on on 00:00: [place] [address] Medical Branch VT VT Disease Active 2013-09 Univers (ventricul (ventricul 10-28 it y of ar ar 00:00: [place] tachycardi tachycardi 00 Me dical a) a) Branch Allergies, Adverse Reactions, Alerts Allergy Allergy Status Severity Reaction(s) Onset Inactive Treating Comm ents Source Name Type Date Date Clinician No Known DA Active U 2019-09 [facility]01 [place] 00:[place]: [address] No Known DA Active U 2019-09 [facility] Allergie 0-01 [place] s 00:00: [address] NO KNOWN Drug Active Univers ALLERGIE Class ity of S [facility] Social History Social Habit Start Date Stop Date Quantity Comments Source Gender identity Universit y of [facility] Sexual orientation Univer sity of [facility] History of tobacco Passive smoker Un iversity of use [place] [facility] History SDOH Social Unive rsity of [facility] Med ical Together Branch History SDOH Social Unive rsity of Connections [facility] Medical Branch History SDOH Social Unive rsity of Connections [place] [facility] Membership Branch History SDOH Social Unive rsity of [facility] Medical Meetings Branch History of Social 2023-03-01 2023-03-01 Univers ity of function 00:00:00 00:00:00 [facility] Branch Alcohol intake 2023-03-01 2023-03-01 Current drinker Unive rsity of 00:00:00 00:00:00 of alcohol [place] [facility] (finding) Branch History SDOH 2023-02-18 2023-02-18 2 University o f Housing Unable to 00:00:00 00:00:00 [place] M edical Pay Branch History SDOH 2023-02-18 2023-02-18 1 University o f Housing Places 00:00:00 00:00:00 [place] [facility] lucho Lived Branch History SDOH 2023-02-18 2023-02-18 2 University o f Housing Homeless 00:00:00 00:00:00 [place] Me dical Last Year Branch History SDOH [...] University o f Physical Activity 00:00:00 00:00:00 [place] M edical DPW Branch History SDOH 2023-02-18 2023-02-18 0 University o f Physical Activity 00:00:00 00:00:00 [place] M edical MPS Branch History SDOH 2023-02-18 [...] University o f Transport Non-Med 00:00:00 00:00:00 [place] M edical Branch Exposure to 2023-02-05 2023-02-15 Not sure University of SARS-CoV-2 (event) 00:00:00 15:15:00 [place] [facility] History SDOH 2022-12-02 2022-12-02 3 University o f Alcohol Std Drinks 00:00:00 00:00:00 [place] [facility] History SDOH 2022-12-02 2022-12-02 1 University o f Alcohol Binge 00:00:00 00:00:00 [facility] al Branch Cigarettes smoked 2022-11-09 2022-11-09 Univers ity of current (pack per 00:00:00 00:00:00 [place] ) - Reported Branch Tobacco use and 2022-11-09 2022-11-09 User of Universit y of exposure 00:00:00 00:00:00 smokeless [facility] tobacco Branch Education 2022-11-09 2022-11-09 13 [facility] 00:00:00 00:00:00 [facility] Alcohol Comment 2014-08-27 2014-08-27 8 drinks per day Uni versity of 00:00:00 00:00:00 [facility] Sex Ass[birth year] [facility] [place] [facility] y of 00:00:00 00:00:00 [facility] Smoking Status Start Date Stop Date Source Smokes tobacco daily 2022-11-09 00:00:00 Univers ity of [facility] Medications Ordered Filled Start Stop Current Ordering Indication Dosage Frequency Signature Comments Components Source Medication Medication Date Date Medication? Clinician (SIG) Name Name fluticasone Yes 1{puff} Inhale 1 Univers propion-bella 8-01 Puff in ity o f meteroL 00:00: the [place] (ADVAIR 00 morning Medical DISKUS) and 1 [...] Wheezing or Shortness of Breath. ipratropium Yes [id number] 3mL Inhale 3 Univers -albuteroL 8-01 mL [...] capsule in ity of inhalation 00:00: the [place] 00 morning. Medical Branch albuterol 3-0 Yes 2{puff} Inhale 2 U nivers 90 8-01 Puffs ity of mcg/actuati 00:00: every 4 [place] as on inhaler 00 (four) Medical hours as Branch needed for Wheezing or Shortness of Breath. ipratropium 2023-0 Yes [id number] 3mL Inhale 3 Univers -albuteroL 8-01 mL every 6 ity of 0.5 mg-3 00:00: (six) [place] mg(2.5 mg 00 hours as Medica l base)/3 mL needed for Bra nch nebulizer Wheezing. solution fluticasone 2023-0 Yes 1{puff} Inhale 1 Univers propion-bella 8-01 Puff in ity o f meteroL 00:00: the [place] (ADVAIR 00 morning Medical DISKUS) and 1 Puff Branch 250-50 in the mcg/dose evening. inhalation disk tiotropium 2023-0 Yes 18ug Inhale 1 Uni vers 18 mcg 8-01 capsule in ity of inhalation 00:00: the [place] 00 morning. Medical Branch albuterol 3-0 Yes 2{puff} Inhale 2 U nivers 90 8-01 Puffs ity of mcg/actuati 00:00: every 4 [place] as on inhaler 00 (four) Medical hours as Branch needed for Wheezing or Shortness of Breath. ipratropium 2023-0 Yes [id number] 3mL Inhale 3 Univers -albuteroL 8-01 mL every 6 ity of 0.5 mg-3 00:00: (six) [place] mg(2.5 mg 00 hours as Medica l base)/3 mL needed for Bra nch nebulizer Wheezing. solution albuterol 2023-0 Yes [id number] 2.5mg Inhale 3 Univers 2.5 mg /3 6-15 mL every 4 ity of mL (0.083 00:00: (four) [place] %) 00 hours. May Medical nebulizer also Branch solution nebulize one extra every 6 hours. albuterol 3-0 Yes [id number] 2.5mg Inhale 3 Univers 2.5 mg /3 6-15 mL every 4 ity of mL (0.083 00:00: (four) [place] %) 00 hours. May Medical nebulizer also Branch solution nebulize one extra every 6 hours. albuterol 3-0 Yes [id number] 2.5mg Inhale 3 Univers 2.5 mg /3 6-15 mL every 4 ity of mL (0.083 00:00: (four) [place] %) 00 hours. May Medical nebulizer also Branch solution nebulize one extra every 6 hours. albuterol 3-0 Yes [id number] 2.5mg Inhale 3 Univers 2.5 mg /3 6-15 mL every 4 ity of mL (0.083 00:00: (four) [place] %) 00 hours. May Medical nebulizer also Branch solution nebulize one extra every 6 hours. donepeziL 5 2022-0 Yes [id number] 5mg Take 1 Univers mg tablet 6-13 tablet by ity o f 00:00: mouth in [place] the Medical morning. Branch memantine 5 2022-0 Yes [id number] 5mg Take 1 Univers mg tablet 6-13 tablet by ity o f 00:00: mouth in [place] the Medical morning. Branch donepeziL 5 2022-0 Yes [id number] 5mg Take 1 Univers mg tablet 6-13 tablet by ity o f 00:00: mouth in [place] the Medical morning. Branch memantine 5 2022-0 Yes [id number] 5mg Take 1 Univers mg tablet 6-13 tablet by ity o f 00:00: mouth in [place] 00 the Medical morning. Branch donepeziL 5 2022-0 Yes [id number] 5mg Take 1 Univers mg tablet 6-13 tablet by ity o f 00:00: mouth in [place] 00 the Medical morning. Branch memantine 5 2022-0 Yes [id number] 5mg Take 1 Univers mg tablet 6-13 tablet by ity o f 00:00: mouth in [place] 00 the Medical morning. Branch donepeziL 5 3-0 Yes [id number] 5mg Take 1 Univers mg tablet 6-13 tablet by ity o f 00:00: mouth in [place] 00 the Medical morning. Branch memantine 5 2022-0 Yes [id number] 5mg Take 1 Univers mg tablet 6-13 tablet by ity o f 00:00: mouth in [place] 00 the Medical morning. Branch donepeziL 5 3-0 Yes [id number] 5mg Take 1 Univers mg tablet 6-13 tablet by ity o f 00:00: mouth in [place] 00 the Medical morning. Branch memantine 5 2022-0 Yes [id number] 5mg Take 1 Univers mg tablet 6-13 tablet by ity o f 00:00: mouth in [place] 00 the Medical morning. Branch donepeziL 5 2022-0 Yes [id number] 5mg Take 1 Univers mg tablet 6-13 tablet by ity o f 00:00: mouth in [place] 00 the Medical morning. Branch memantine 5 2022-0 Yes [id number] 5mg Take 1 Univers mg tablet 6-13 tablet by ity o f 00:00: mouth in [place] 00 the Medical morning. Branch busPIRone 3-0 Yes 10mg Take 1 Univer s 10 mg 6-02 tablet by ity of tablet 16:15: mouth in [place] [address] the Medical morning Branch and 1 tablet in the evening. rivaroxaban 2023-0 Yes 15mg Take 1 Univ ers 15 mg 6-02 tablet by ity of tablet 16:15: mouth in [place] [address] the Medical morning. Branch ASPIRIN 2023-0 Yes 81mg Take 81 mg Univ ers ORAL 6-02 by mouth ity of 16:15: in the [place] [address] morning. Medical tablet Branch busPIRone 3-0 Yes 10mg Take 1 Univer s 10 mg 6-02 tablet by ity of tablet 16:15: mouth in [place] [address] the Medical morning Branch and 1 tablet in the evening. rivaroxaban 2023-0 Yes 15mg Take 1 Univ ers 15 mg 6-02 tablet by ity of tablet 16:15: mouth in [place] [address] the Medical morning. Branch ASPIRIN 2023-0 Yes 81mg Take 81 mg Univ ers ORAL 6-02 by mouth ity of 16:15: in the [place] [address] morning. Medical tablet Branch busPIRone 2023-0 Yes 10mg Take 1 Univer s 10 mg 6-02 tablet by ity of tablet 16:15: mouth in [place] [address] the Medical morning Branch and 1 tablet in the evening. rivaroxaban 2023-0 Yes 15mg Take 1 Univ ers 15 mg 6-02 tablet by ity of tablet 16:15: mouth in [place] [address] the Medical morning. Branch ASPIRIN 2023-0 Yes 81mg Take 81 mg Univ ers ORAL 6-02 by mouth ity of 16:15: in the [place] [address] morning. Medical tablet Branch busPIRone 2023-0 Yes 10mg Take 1 Univer s 10 mg 6-02 tablet by ity of tablet 16:15: mouth in [place] [address] the Medical morning Branch and 1 tablet in the evening. rivaroxaban 2023-0 Yes 15mg Take 1 Univ ers 15 mg 6-02 tablet by ity of tablet 16:15: mouth in [place] [address] the Medical morning. Branch ASPIRIN 2023-0 Yes 81mg Take 81 mg Univ ers ORAL 6-02 by mouth ity of 16:15: in the [place] [address] morning. Medical tablet Branch busPIRone 2023-0 Yes 10mg Take 1 Univer s 10 mg 6-02 tablet by ity of tablet 16:15: mouth in [place] [address] the Medical morning Branch and 1 tablet in the evening. rivaroxaban 2023-0 Yes 15mg Take 1 Univ ers 15 mg 6-02 tablet by ity of tablet 16:15: mouth in [place] [address] the Medical morning. Branch ASPIRIN 2023-0 Yes 81mg Take 81 mg Univ ers ORAL 6-02 by mouth ity of 16:15: in the [place] [address] morning. Medical tablet Branch busPIRone 2023-0 Yes 10mg Take 1 Univer s 10 mg 6-02 tablet by ity of tablet 16:15: mouth in [place] [address] the Medical morning Branch and 1 tablet in the evening. rivaroxaban 2023-0 Yes 15mg Take 1 Univ ers 15 mg 6-02 tablet by ity of tablet 16:15: mouth in [place] [address] the Medical morning. Branch ASPIRIN 2023-0 Yes 81mg Take 81 mg Univ ers ORAL 6-02 by mouth ity of 16:15: in the [place] [address] morning. Medical tablet Branch busPIRone 2023-0 Yes 10mg Take 1 Univer s 10 mg 6-02 tablet by ity of tablet 16:15: mouth in [place] [address] the Medical morning Branch and 1 tablet in the evening. rivaroxaban 2023-0 Yes 15mg Take 1 Univ ers 15 mg 6-02 tablet by ity of tablet 16:15: mouth in [place] [address] the Medical morning. Branch ASPIRIN 2023-0 Yes 81mg Take 81 mg Univ ers ORAL 6-02 by mouth ity of 16:15: in the [place] [address] morning. Medical tablet Branch busPIRone 2023-0 Yes 10mg Take 1 Univer s 10 mg 6-02 tablet by ity of tablet 16:15: mouth in [place] [address] the Medical morning Branch and 1 tablet in the evening. rivaroxaban 2023-0 Yes 15mg Take 1 Univ ers 15 mg 6-02 tablet by ity of tablet 16:15: mouth in [place] [address] the Medical morning. Branch ASPIRIN 2023-0 Yes 81mg Take 81 mg Univ ers ORAL 6-02 by mouth ity of 16:15: in the [place] [address] morning. Medical tablet Branch busPIRone 2023-0 Yes 10mg Take 1 Univer s 10 mg 6-02 tablet by ity of tablet 16:15: mouth in [place] [address] the Medical morning Branch and 1 tablet in the evening. rivaroxaban 2023-0 Yes 15mg Take 1 Univ ers 15 mg 6-02 tablet by ity of tablet 16:15: mouth in [place] [address] the Medical morning. Branch ASPIRIN 2023-0 Yes 81mg Take 81 mg Univ ers ORAL 6-02 by mouth ity of 16:15: in the [place] [address] morning. Medical tablet Branch busPIRone 2023-0 Yes 10mg Take 1 Univer s 10 mg 6-02 tablet by ity of tablet 16:15: mouth in [place] [address] the Medical morning Branch and 1 tablet in the evening. rivaroxaban 2023-0 Yes 15mg Take 1 Univ ers 15 mg 6-02 tablet by ity of tablet 16:15: mouth in [place] [address] the Medical morning. Branch ASPIRIN 2023-0 Yes 81mg Take 81 mg Univ ers ORAL 6-02 by mouth ity of 16:15: in the [place] [address] morning. Medical tablet Branch predniSONE 2023-0 2023- No [id number] 40mg Take 2 Univers 20 mg 6-02 06-06 tablets by ity of tablet 00:00: 04:59 mouth in [place] 00 :00 the Medical morning Branch for 3 days. predniSONE 2022-0 2022- No [id number] 40mg Take 2 Univers 20 mg 6-10 25-06 tablets by ity of tablet 00:00: 04:59 mouth in [place] 00 :00 the Medical morning Branch for 3 days. predniSONE 2022-0 2022- No [id number] 40mg Take 2 Univers 20 mg 6- 06-06 tablets by ity of tablet 00:00: 04:59 mouth in [place] 00 :00 the Medical morning Branch for 3 days. midodrine 5 2022-0 Yes [id number] 5mg Take 1 Univers mg tablet 6-01 tablet by ity o f 00:00: mouth [place] 00 every 8 Medical (eight) Branch hours as needed (Hypotensi on SBP <95 or DBP <50). midodrine 5 2022-0 Yes [id number] 5mg Take 1 Univers mg tablet 6-01 tablet by ity o f 00:00: mouth [place] 00 every 8 Medical (eight) Branch hours as needed (Hypotensi on SBP <95 or DBP <50). midodrine 5 0 Yes [id number] 5mg Take 1 Univers mg tablet 6-01 tablet by ity o f 00:00: mouth [place] 00 every 8 Medical (eight) Branch hours as needed (Hypotensi on SBP <95 or DBP <50). midodrine 5 2022-0 Yes [id number] 5mg Take 1 Univers mg tablet 6-01 tablet by ity o f 00:00: mouth [place] 00 every 8 Medical (eight) Branch hours as needed (Hypotensi on SBP <95 or DBP <50). midodrine 5 0 Yes [id number] 5mg Take 1 Univers mg tablet 6-01 tablet by ity o f 00:00: mouth [place] 00 every 8 Medical (eight) Branch hours as needed (Hypotensi on SBP <95 or DBP <50). midodrine 5 2022-0 Yes [id number] 5mg Take 1 Univers mg tablet 6-01 tablet by ity o f 00:00: mouth [place] 00 every 8 Medical (eight) Branch hours as needed (Hypotensi on SBP <95 or DBP <50). midodrine 5 2022-0 Yes [id number] 5mg Take 1 Univers mg tablet 6-01 tablet by ity o f 00:00: mouth [place] 00 every 8 Medical (eight) Branch hours as needed (Hypotensi on SBP <95 or DBP <50). midodrine 5 2022-0 Yes [id number] 5mg Take 1 Univers mg tablet 6-01 tablet by ity o f 00:00: mouth [place] 00 every 8 Medical (eight) Branch hours as needed (Hypotensi on SBP <95 or DBP <50). midodrine 5 2022-0 Yes [id number] 5mg Take 1 Univers mg tablet 6-01 tablet by ity o f 00:00: mouth [place] 00 every 8 Medical (eight) Branch hours as needed (Hypotensi on SBP <95 or DBP <50). midodrine 5 2022-0 Yes [id number] 5mg Take 1 Univers mg tablet 6-01 [...] 02/16/23 at 0900, Until Discontinu ed, Routine
board member approving Restricted medication : DEDRICK TOTH [...] 0900, Until Discontinu ed, Routine predniSONE 2022- No 40mg 40 mg, Univ ers (DELTASONE) 02-16 Oral, ity of tablet 40 14:00: 13:59 DAILY, 5 [place] as mg 00 :00 doses, Medical First dose Branch on Tue02/16/23 at 0900, Last dose on Tue02/20/23 at 0900, Routine sulfur No [id number] 5mL 5 mL, Unive rs hexafluorid 02-16 Intravenou i ty of e microsphr 14:00: 14:00 s, ONCE, 1 [place] (LUMASON) 00 :00 dose, On Medica l injection Tue mL 02/16/23 at 0900, Routine
board member approving Restricted medication : STEFFANIE REYES [...] Branch 0800, Until Discontinu ed, Routine methylpredn No 60mg 60 mg, Uni vers isolone [...] 26 Starting Medica l tablet 1 on [facility] tablet 02/15/23 at 1951, Until Discontinu ed, Routine, Pain (scale 7-10) traMADoL 0 2022- No 50mg 50 mg, Univer s (ULTRAM) 02-16-02 Oral, ity of tablet 50 00:52: 00:51 Q8HPRN, [place] mg 22 :22 Starting Medical on [facility] 02/15/23 at 1951, Until [place] 02/17/23 at 1950, Routine, Pain (scale 4-6) acetaminoph Yes 650mg 650 mg, Un igor en 02-16 Oral, ity of (TYLENOL) 00:52: Q6HPRN, [place] tablet 650 16 Starting Medic al mg on [facility] 02/15/23 at 1951, Until Discontinu ed, Routine, Pain (scale 1-3) NaCl 0.9% 2022- No 1000mL at 999 Uni vers (NS) bolus 5-30 05-30 mL/hr, ity of infusion 22:15: 22:51 1,000 mL, [place] as 1,000 mL 00 :00 IV Medical Infusion, Branch ONCE, 1 dose, On [facility] 02/15/23 at 1715, MICHAEL NaCl 0.9% 0 2022- No 1000mL at 999 Uni vers (NS) bolus 5-30 05-30 mL/hr, ity of infusion 21:30: 22:43 1,000 mL, [place] 1,000 mL 00 :00 IV Medical Infusion, Branch ONCE, 1 dose, On [facility] 02/15/23 at 1630, MICHAEL NaCl 0.9% 2022-0 2022- No 1000mL at 999 Uni vers (NS) bolus 5-30 05-30 mL/hr, ity of infusion 20:45: 22:43 1,000 mL, [place] as 1,000 mL 00 :00 IV Medical Infusion, Branch ONCE, 1 dose, On 02/15/23 at 1545, MICHAEL ipratropium 0 2022- No 3mL 3 mL, [...] mg 02/04/23 at 1615, MICHAEL albuterol Yes [id number] 2{puff} Inhale 2 Univers 90 -19 Puffs ity of mcg/actuati 00:00: every 4 [place] on inhaler 00 (four) Medical hours as Branch needed for Wheezing or Shortness of Breath. albuterol Yes [id number] 2{puff} Inhale 2 Univers 90 5-19 Puffs ity of mcg/actuati 00:00: every 4 [place] as on inhaler 00 (four) Medical hours as Branch needed for Wheezing or Shortness of Breath. albuterol Yes [id number] 2{puff} Inhale 2 Univers 90 5-19 Puffs ity of mcg/actuati 00:00: every 4 [place] as on inhaler 00 (four) Medical hours as Branch needed for Wheezing or Shortness of Breath. albuterol Yes [id number] 2{puff} Inhale 2 Univers 90 5-19 Puffs ity of mcg/actuati 00:00: every 4 [place] as on inhaler 00 (four) Medical hours as Branch needed for Wheezing or Shortness of Breath. albuterol Yes [id number] 2{puff} Inhale 2 Univers 90 5-19 Puffs ity of mcg/actuati 00:00: every 4 [place] on inhaler 00 (four) Medical hours as Branch needed for Wheezing or Shortness of Breath. albuterol Yes [id number] 2{puff} Inhale 2 Univers 90 5-19 Puffs ity of mcg/actuati 00:00: every 4 [place] on inhaler 00 (four) Medical hours as Branch needed for Wheezing or Shortness of Breath. albuterol Yes [id number] 2{puff} Inhale 2 Univers 90 5-19 Puffs ity of mcg/actuati 00:00: every 4 [place] on inhaler 00 (four) Medical hours as Branch needed for Wheezing or Shortness of Breath. albuterol Yes [id number] 2{puff} Inhale 2 Univers 90 5-19 Puffs ity of mcg/actuati 00:00: every 4 [place] on inhaler 00 (four) Medical hours as Branch needed for Wheezing or Shortness of Breath. albuterol Yes [id number] 2{puff} Inhale 2 Univers 90 5-19 Puffs ity of mcg/actuati 00:00: every 4 [place] on inhaler 00 (four) Medical hours as Branch needed for Wheezing or Shortness of Breath. albuterol 2023-0 Yes [id number] 2{puff} Inhale 2 Univers 90 5-19 Puffs ity of mcg/actuati 00:00: every 4 [place] on inhaler 00 (four) Medical hours as Branch needed for Wheezing or Shortness of Breath. albuterol 2022-0 2022- No [id number] 2{puff} Inhale 2 Univers 90 5-19 08-01 Puffs ity of mcg/actuati 00:00: 00:00 every 4 [place] on inhaler 00 :00 (four) Medical hours as Branch needed for Wheezing or Shortness of Breath. albuterol 2022-0 2022- No [id number] 2{puff} Inhale 2 Univers 90 5-19 08-01 [...] 3 Until mL Discontinu ed, Routine methylpredn 2022-0 2022- No 125mg 125 mg, U nivers isolone sod -18 05-18 Intravenou i ty of succ 18:45: 18:16 s, ONCE, 1 [place] (SOLU-MEDRO 00 :00 dose, On Medi lucho L) [place] Branch injection 02/03/23 at 125 mg 1345, 2 mL ipratropium 2022-0 2022- No 3mL 3 mL, Univ ers -albuteroL 5-17 05-17 Inhalation it y of (DUONEB) 23:15: 22:13 , ONCE, 1 [place] as 0.5 mg-3 00 :00 dose, On Medical mg(2.5 mg Wed Branch base)/3 mL 02/02/23 at nebulizer 1815, solution 3 Routine mL tiotropium 2022-0 Yes [id number] 18ug Inhale 1 Univers 18 mcg 5-15 capsule in ity of inhalation 00:00: the [place] 00 morning. Medical Branch fluticasone 3-0 Yes [id number] 1{puff} Inhale 1 Univers propion-bella 5-15 Puff in ity o f meteroL 00:00: the [place] (ADVAIR 00 morning Medical DISKUS) and 1 Puff Branch 250-50 in the mcg/dose evening. inhalation disk montelukast 3-0 Yes [id number] 10mg Take 1 Univers 10 mg 5-15 tablet by ity of tablet 00:00: mouth in [place] 00 the morning. Branch tiotropium 2022-0 Yes [id number] 18ug Inhale 1 Univers 18 mcg 5-15 capsule in ity of inhalation 00:00: the [place] 00 morning. Medical Branch fluticasone 2022-0 Yes [id number] 1{puff} Inhale 1 Univers propion-bella 5-15 Puff in ity o f meteroL 00:00: the [place] (ADVAIR 00 morning Medical DISKUS) and 1 Puff Branch 250-50 in the mcg/dose evening. inhalation disk montelukast 2022-0 Yes [id number] 10mg Take 1 Univers 10 mg 5-15 tablet by ity of tablet 00:00: mouth in [place] 00 the morning. Branch tiotropium 2022-0 Yes [id number] 18ug Inhale 1 Univers 18 mcg 5-15 capsule in ity of inhalation 00:00: the [place] 00 morning. Medical Branch fluticasone 2022-0 Yes [id number] 1{puff} Inhale 1 Univers propion-bella 5-15 Puff in ity o f meteroL 00:00: the [place] (ADVAIR 00 morning Medical DISKUS) and 1 Puff Branch 250-50 in the mcg/dose evening. inhalation disk montelukast 3-0 Yes [id number] 10mg Take 1 Univers 10 mg 5-15 tablet by ity of tablet 00:00: mouth in [place] 00 the morning. Branch tiotropium 2022-0 Yes [id number] 18ug Inhale 1 Univers 18 mcg 5-15 capsule in ity of inhalation 00:00: the [place] 00 morning. Medical Branch fluticasone 2022-0 Yes [id number] 1{puff} Inhale 1 Univers propion-bella 5-15 Puff in ity o f meteroL 00:00: the [place] (ADVAIR 00 morning Medical DISKUS) and 1 Puff Branch 250-50 in the mcg/dose evening. inhalation disk montelukast 2023-0 Yes [id number] 10mg Take 1 Univers 10 mg 5-15 tablet by ity of tablet 00:00: mouth in [place] 00 the Medical morning. Branch tiotropium 2023-0 Yes [id number] 18ug Inhale 1 Univers 18 mcg 5-15 capsule in ity of inhalation 00:00: the [place] 00 morning. Medical Branch fluticasone 2023-0 Yes [id number] 1{puff} Inhale 1 Univers propion-bella 5-15 Puff in ity o f meteroL 00:00: the [place] (ADVAIR 00 morning Medical DISKUS) and 1 Puff Branch 250-50 in the mcg/dose evening. inhalation disk montelukast 3-0 Yes [id number] 10mg Take 1 Univers 10 mg 5-15 tablet by ity of tablet 00:00: mouth in [place] 00 the Medical morning. Branch tiotropium 3-0 Yes [id number] 18ug Inhale 1 Univers 18 mcg 5-15 capsule in ity of inhalation 00:00: the [place] 00 morning. Medical Branch fluticasone 3-0 Yes [id number] 1{puff} Inhale 1 Univers propion-bella 5-15 Puff in ity o f meteroL 00:00: the [place] (ADVAIR 00 morning Medical DISKUS) and 1 Puff Branch 250-50 in the mcg/dose evening. inhalation disk montelukast 3-0 Yes [id number] 10mg Take 1 Univers 10 mg 5-15 tablet by ity of tablet 00:00: mouth in [place] 00 the Medical morning. Branch tiotropium 3-0 Yes [id number] 18ug Inhale 1 [facility] 18 mcg 5-15 capsule in ity of inhalation 00:00: the [place] 00 morning. Medical Branch fluticasone 2023-0 Yes [id number] 1{puff} Inhale 1 [facility] propion-bella 5-15 Puff in ity o f meteroL 00:00: the [place] (ADVAIR 00 morning Medical DISKUS) and 1 Puff Branch 250-50 in the mcg/dose evening. inhalation disk montelukast 2023-0 Yes [id number] 10mg Take 1 [facility] 10 mg 5-15 tablet by ity of tablet 00:00: mouth in [place] 00 the Medical morning. Branch tiotropium 2022-0 Yes [id number] 18ug Inhale 1 [facility] 18 mcg 5-15 capsule in ity of inhalation 00:00: the [place] 00 morning. Medical Branch fluticasone 2022-0 Yes [id number] 1{puff} Inhale 1 [facility] propion-bella 5-15 Puff in ity o f meteroL 00:00: the [place] (ADVAIR 00 morning Medical DISKUS) and 1 Puff Branch 250-50 in the mcg/dose evening. inhalation disk montelukast 2022-0 Yes [id number] 10mg Take 1 [facility] 10 mg 5-15 tablet by ity of tablet 00:00: mouth in [place] 00 the Medical morning. Branch tiotropium 2022-0 Yes [id number] 18ug Inhale 1 [facility] 18 mcg 5-15 capsule in ity of inhalation 00:00: the [place] 00 morning. Medical Branch fluticasone 2022-0 Yes [id number] 1{puff} Inhale 1 [facility] propion-bella 5-15 Puff in ity o f meteroL 00:00: the [place] (ADVAIR 00 morning Medical DISKUS) and 1 Puff Branch 250-50 in the mcg/dose evening. inhalation disk montelukast 2022-0 Yes [id number] 10mg Take 1 [facility] 10 mg 5-15 tablet by ity of tablet 00:00: mouth in [place] 00 the Medical morning. Branch tiotropium 2022-0 Yes [id number] 18ug Inhale 1 [facility] 18 mcg 5-15 capsule in ity of inhalation 00:00: the [place] 00 morning. Medical Branch montelukast 2022-0 Yes [id number] 10mg Take 1 [facility] 10 mg 5-15 tablet by ity of tablet 00:00: mouth in [place] 00 the Medical morning. Branch montelukast 3-0 Yes [id number] 10mg Take 1 [facility] 10 mg 5-15 tablet by ity of tablet 00:00: mouth in [place] 00 the Medical morning. Branch montelukast 3-0 Yes [id number] 10mg Take 1 [facility] 10 mg 5-15 tablet by ity of tablet 00:00: mouth in [place] 00 the Medical morning. Branch albuterol 0 Yes [id number] 2{puff} Inhale 2 [facility] 90 5-15 Puffs ity of mcg/actuati 00:00: every 4 [place] as on inhaler 00 (four) Medical hours as Branch needed for Wheezing, Shortness of Breath or Bronchospa sm. fluticasone 2022-0 Yes [id number] 1{puff} Inhale 1 [facility] propion-bella 5-15 Puff in ity o f meteroL 00:00: the [place] (ADVAIR 00 morning Medical DISKUS) and 1 Puff Branch 250-50 in the mcg/dose evening. inhalation disk montelukast 2022-0 Yes [id number] 10mg Take 1 [facility] 10 mg 5-15 tablet by ity of tablet 00:00: mouth in [place] the Medical morning. Branch tiotropium 2022-0 Yes [id number] 18ug Inhale 1 [facility] 18 mcg 5-15 capsule in ity of inhalation 00:00: the [place] 00 morning. Medical Branch albuterol 2022-0 Yes [id number] 2{puff} Inhale 2 [facility] 90 5-15 Puffs ity of mcg/actuati 00:00: every 4 [place] as on inhaler 00 (four) Medical hours as Branch needed for Wheezing, Shortness of Breath or Bronchospa sm. fluticasone 2022-0 Yes [id number] 1{puff} Inhale 1 [facility] propion-bella 5-15 Puff in ity o f meteroL 00:00: the [place] (ADVAIR 00 morning Medical DISKUS) and 1 Puff Branch 250-50 in the mcg/dose evening. inhalation disk montelukast 2022-0 Yes [id number] 10mg Take 1 [facility] 10 mg 5-15 tablet by ity of tablet 00:00: mouth in [place] 00 the Medical morning. Branch tiotropium 2022-0 Yes [id number] 18ug Inhale 1 [facility] 18 mcg 5-15 capsule in ity of inhalation 00:00: the [place] 00 morning. Medical Branch albuterol 2022-0 Yes [id number] 2{puff} Inhale 2 [facility] 90 5-15 Puffs ity of mcg/actuati 00:00: every 4 [place] as on inhaler 00 (four) Medical hours as Branch needed for Wheezing, Shortness of Breath or Bronchospa sm. fluticasone 0 Yes [id number] 1{puff} Inhale 1 [facility] propion-bella 5-15 Puff in ity o f meteroL 00:00: the [place] (ADVAIR 00 morning Medical DISKUS) and 1 Puff Branch 250-50 in the mcg/dose evening. inhalation disk montelukast 2022-0 Yes [id number] 10mg Take 1 [facility] 10 mg 5-15 tablet by ity of tablet 00:00: mouth in [place] 00 the Medical morning. Branch tiotropium 0 Yes [id number] 18ug Inhale 1 [facility] 18 mcg 5-15 capsule in ity of inhalation 00:00: the [place] 00 morning. Medical Branch albuterol 0 Yes [id number] 2{puff} Inhale 2 [facility] 90 5-15 Puffs ity of mcg/actuati 00:00: every 4 [place] as on inhaler 00 (four) Medical hours as Branch needed for Wheezing, Shortness of Breath or Bronchospa sm. fluticasone 2022-0 Yes [id number] 1{puff} Inhale 1 [facility] propion-bella 5-15 Puff in ity o f meteroL 00:00: the [place] (ADVAIR 00 morning Medical DISKUS) and 1 Puff Branch 250-50 in the mcg/dose evening. inhalation disk montelukast 2022-0 Yes [id number] 10mg Take 1 [facility] 10 mg 5-15 tablet by ity of tablet 00:00: mouth in [place] 00 the morning. Branch tiotropium 2022-0 Yes [id number] 18ug Inhale 1 [facility] 18 mcg 5-15 capsule in ity of inhalation 00:00: the [place] 00 morning. Medical Branch fluticasone 2022-0 Yes [id number] 1{puff} Inhale 1 [facility] propion-bella 5-15 Puff in ity o f meteroL 00:00: the [place] (ADVAIR 00 morning Medical DISKUS) and 1 Puff Branch 250-50 in the mcg/dose evening. inhalation disk montelukast 2022-0 Yes [id number] 10mg Take 1 [facility] 10 mg 5-15 tablet by ity of tablet 00:00: mouth in [place] 00 the morning. Branch fluticasone 2022-0 2022- No [id number] 1{puff} Inhale 1 [facility] propion-bella 5-15 08-01 Puff in ity of meteroL 00:00: 00:00 [facility] (ADVAIR 00 :00 morning Medical DISKUS) and 1 Puff Branch 250-50 in the mcg/dose evening. inhalation disk tiotropium 2022-0 3- No [id number] 18ug Inhale 1 [facility] 18 mcg 5-15 08-01 capsule in ity of inhalation 00:00: 00:00 [facility] 00 :00 morning. Medical Branch fluticasone 2022-0 2022- No [id number] 1{puff} Inhale 1 [facility] propion-bella 5-15 08-01 Puff in ity of meteroL 00:00: 00:00 [facility] (ADVAIR 00 :00 morning Medical DISKUS) and 1 Puff Branch 250-50 in the mcg/dose evening. inhalation disk tiotropium 2022-0 2022- No [id number] 18ug Inhale 1 [facility] 18 mcg 5-15 08-01 capsule in ity of inhalation 00:00: 00:00 [facility] 00 :00 morning. Medical Branch albuterol 2022-0 2022- No [id number] 2{puff} Inhale 2 [facility] 90 5-15 05-19 [...] Inhalation ity of (DUONEB) 13:00: , QID, [place] 0.5 mg-3 00 First dose Medic al mg(2.5 mg on [facility] base)/3 mL 01/27/23 at nebulizer 0800, solution 3 Until mL Discontinu ed, Routine ipratropium 2022- No 3mL 3 mL, Univ ers -albuteroL 01-24- Inhalation it y of (DUONEB) 18:00: 18:15 , ONCE, 1 [place] as 0.5 mg-3 00 :00 dose, On Medical mg(2.5 mg 01/24/23 [facility] base)/3 mL at 1300, nebulizer MICHAEL solution 3 mL furosemide 2022- No 40mg 40 mg, IV U nivers (LASIX) 01-24- Push, ity of injection 18:00: 18:42 ONCE, 1 [place] 40 mg 00 :00 dose, On Medical [facility] 01/24/23 Branch at 1300, MICHAEL aspirin 2022-0 2022- No 325mg 325 mg, Unive rs tablet 325 01-2408 Oral, ity of mg 18:00: 18:44 ONCE, 1 [place] 00 :00 dose, On Medical [facility] 01/24/23 Branch at 1300, STAT busPIRone 2022-0 Yes 10mg Take 1 Univer s 10 mg 5-08 tablet by ity of tablet 15:48: mouth in [place] [address] the Medical morning Branch and 1 tablet in the evening. rivaroxaban 2022-0 Yes 15mg Take 1 Univ ers 15 mg 5-08 tablet by ity of tablet 15:48: mouth in [place] [address] the Medical morning. Branch ASPIRIN 3-0 Yes 81mg Take 81 mg Univ ers ORAL 5-08 by mouth ity of 15:48: in the [place] [address] morning. Medical tablet Branch busPIRone 3-0 Yes 10mg Take 1 Univer s 10 mg 5-08 tablet by ity of tablet 15:48: mouth in [place] [address] the Medical morning Branch and 1 tablet in the evening. rivaroxaban 3-0 Yes 15mg Take 1 Univ ers 15 mg 5-08 tablet by ity of tablet 15:48: mouth in [place] [address] the Medical morning. Branch ASPIRIN 2023-0 Yes 81mg Take 81 mg Univ ers ORAL 5-08 by mouth ity of 15:48: in the [place] [address] morning. Medical tablet Branch busPIRone 2023-0 Yes 10mg Take 1 Univer s 10 mg 5-08 tablet by ity of tablet 15:48: mouth in [place] [address] the Medical morning Branch and 1 tablet in the evening. rivaroxaban 2023-0 Yes 15mg Take 1 Univ ers 15 mg 5-08 tablet by ity of tablet 15:48: mouth in [place] [address] the Medical morning. Branch ASPIRIN 2023-0 Yes 81mg Take 81 mg Univ ers ORAL 5-08 by mouth ity of 15:48: in the [place] [address] morning. Medical tablet Branch busPIRone 2023-0 Yes 10mg Take 1 Univer s 10 mg 5-08 tablet by ity of tablet 15:48: mouth in [place] [address] the Medical morning Branch and 1 tablet in the evening. rivaroxaban 2023-0 Yes 15mg Take 1 Univ ers 15 mg 5-08 tablet by ity of tablet 15:48: mouth in [place] [address] the Medical morning. Branch ASPIRIN 2023-0 Yes 81mg Take 81 mg Univ ers ORAL 5-08 by mouth ity of 15:48: in the [place] [address] morning. Medical tablet Branch busPIRone 2023-0 Yes 10mg Take 1 Univer s 10 mg 5-08 tablet by ity of tablet 15:48: mouth in [place] [address] the Medical morning Branch and 1 tablet in the evening. rivaroxaban 2023-0 Yes 15mg Take 1 Univ ers 15 mg 5-08 tablet by ity of tablet 15:48: mouth in [place] [address] the Medical morning. Branch ASPIRIN 2023-0 Yes 81mg Take 81 mg Univ ers ORAL 5-08 by mouth ity of 15:48: in the [place] [address] morning. Medical tablet Branch busPIRone 2023-0 Yes 10mg Take 1 Univer s 10 mg 5-08 tablet by ity of tablet 15:48: mouth in [place] [address] the Medical morning Branch and 1 tablet in the evening. rivaroxaban 2023-0 Yes 15mg Take 1 Univ ers 15 mg 5-08 tablet by ity of tablet 15:48: mouth in [place] [address] the Medical morning. Branch ASPIRIN 2023-0 Yes 81mg Take 81 mg Univ ers ORAL 5-08 by mouth ity of 15:48: in the [place] [address] morning. Medical tablet Branch busPIRone 2023-0 Yes 10mg Take 1 Univer s 10 mg 5-08 tablet by ity of tablet 15:48: mouth in [place] [address] the Medical morning Branch and 1 tablet in the evening. rivaroxaban 2023-0 Yes 15mg Take 1 Univ ers 15 mg 5-08 tablet by ity of tablet 15:48: mouth in [place] [address] the Medical morning. Branch ASPIRIN 2023-0 Yes 81mg Take 81 mg Univ ers ORAL 5-08 by mouth ity of 15:48: in the [place] [address] morning. Medical tablet Branch busPIRone 2023-0 Yes 10mg Take 1 Univer s 10 mg 5-08 tablet by ity of tablet 15:48: mouth in [place] [address] the Medical morning Branch and 1 tablet in the evening. rivaroxaban 2023-0 Yes 15mg Take 1 Univ ers 15 mg 5-08 tablet by ity of tablet 15:48: mouth in [place] [address] the Medical morning. Branch ASPIRIN 2023-0 Yes 81mg Take 81 mg Univ ers ORAL 5-08 by mouth ity of 15:48: in the [place] [address] morning. Medical tablet Branch busPIRone 2023-0 Yes 10mg Take 1 Univer s 10 mg 5-08 tablet by ity of tablet 15:48: mouth in [place] [address] the Medical morning Branch and 1 tablet in the evening. rivaroxaban 2023-0 Yes 15mg Take 1 Univ ers 15 mg 5-08 tablet by ity of tablet 15:48: mouth in [place] [address] the Medical morning. Branch ASPIRIN 2023-0 Yes 81mg Take 81 mg Univ ers ORAL 5-08 by mouth ity of 15:48: in the [place] [address] morning. Medical tablet Branch busPIRone 2023-0 Yes 10mg Take 1 Univer s 10 mg 5-08 tablet by ity of tablet 15:48: mouth in [place] [address] the Medical morning Branch and 1 tablet in the evening. rivaroxaban 2023-0 Yes 15mg Take 1 Univ ers 15 mg 5-08 tablet by ity of tablet 15:48: mouth in [place] [address] the Medical morning. Branch ASPIRIN 2023-0 Yes 81mg Take 81 mg Univ ers ORAL 5-08 by mouth ity of 15:48: in the [place] [address] morning. Medical tablet Branch busPIRone 2023-0 Yes 10mg Take 1 Univer s 10 mg 5-08 tablet by ity of tablet 15:48: mouth in [place] [address] the Medical morning Branch and 1 tablet in the evening. rivaroxaban 3-0 Yes 15mg Take 1 Univ ers 15 mg 5-08 tablet by ity of tablet 15:48: mouth in [place] [address] the Medical morning. Branch ASPIRIN 3-0 Yes 81mg Take 81 mg Univ ers ORAL 5-08 by mouth ity of 15:48: in the [place] [address] morning. Medical tablet Branch busPIRone 3-0 Yes 10mg Take 1 Univer s 10 mg 5-08 tablet by ity of tablet 15:48: mouth in [place] [address] the Medical morning Branch and 1 tablet in the evening. rivaroxaban 2022-0 Yes 15mg Take 1 Univ ers 15 mg 5-08 tablet by ity of tablet 15:48: mouth in [place] [address] the Medical morning. Branch ASPIRIN 2022-0 Yes 81mg Take 81 mg Univ ers ORAL 5-08 by mouth ity of 15:48: in the [place] [address] morning. Medical tablet Branch busPIRone 2022-0 Yes 10mg Take 1 Univer s 10 mg 5-08 tablet by ity of tablet 15:48: mouth in [place] [address] the Medical morning Branch and 1 tablet in the evening. rivaroxaban 2022-0 Yes 15mg Take 1 Univ ers 15 mg 5-08 tablet by ity of tablet 15:48: mouth in [place] [address] the Medical morning. Branch ASPIRIN 2022-0 Yes 81mg Take 81 mg Univ ers ORAL 5-08 by mouth ity of 15:48: in the [place] [address] morning. Medical tablet Branch levalbutero 2022-0 2022- [...] it y of succ 23:00: s, Q6H, [place] (SOLU-MEDRO 00 First dose Me dical L) [...] at 1445, STAT predniSONE 2022-0 2022- No [id number] 40mg Take 2 [facility] 20 mg 5-04 05-09 tablets by ity of tablet 00:00: 04:59 mouth in [place] 00 :00 the Medical morning Branch for 4 days. predniSONE 2022-0 2022- No [id number] 40mg Take 2 [facility] 20 mg 5-04 05-09 tablets by ity of tablet 00:00: 04:59 mouth in [place] 00 :00 the Medical morning [facility] for 4 days. predniSONE 2022-0 2022- No [id number] 40mg Take 2 [facility] 20 mg 5-04 05-09 tablets by ity of tablet 00:00: 04:59 mouth in [place] 00 :00 the [facility] morning [facility] for 4 days. predniSONE 2022-0 202- No [id number] 40mg Take 2 [facility] 20 mg 5-04 05-09 tablets by ity of tablet 00:00: 04:59 mouth in [place] 00 :00 the Medical morning [facility] for 4 days. predniSONE 2022-0 202- No [id number] 40mg Take 2 [facility] 20 mg 5-04 05-09 tablets by ity of tablet 00:00: 04:59 mouth in [place] 00 :00 the [facility] morning [facility] for 4 days. predniSONE 2022-0 2022- No [id number] 40mg Take 2 [facility] 20 mg 5-04 05-09 tablets by ity of tablet 00:00: 04:59 mouth in [place] 00 :00 the [facility] morning [facility] for 4 days. predniSONE 2022-0 2022- No [id number] 40mg Take 2 Univers 20 mg 5-04 05-09 tablets by ity of tablet 00:00: 04:59 mouth in [place] 00 :00 the [facility] morning [facility] for 4 days. enoxaparin 0 Yes 40mg 40 mg, Unive rs (LOVENOX) 01-19 Subcutaneo ity of injection 22:00: [place], DAILY, [place] 40 mg 00 First dose Medical on Tue01/19/23 at 1700, Until Discontinu ed, Routine levalbutero 0 Yes 1.25mg 1.25 mg, Univers l (XOPENEX) 01-19 Inhalation it y of nebulizer 21:00: , QID, [place] solution 00 First dose Medic al 1.25 mg (after Branch last modificati on) on Tue01/19/23 at 1600, Until Discontinu ed, Routine ipratropium 0 Yes .5mg 0.5 mg, Uni vers (ATROVENT) 01-19 Inhalation ity of 0.02 % 21:00: , QID, [place] nebulizer 00 First dose Medi lucho solution (after Branch 0.5 mg last modificati on) on Tue01/19/23 at 1600, Until Discontinu ed, Routine busPIRone 2023-0 Yes 10mg Take 1 Univer s 10 mg 5-03 tablet by ity of tablet 19:49: mouth in [place] [address] the Medical morning Branch and 1 tablet in the evening. rivaroxaban 2023-0 Yes 15mg Take 1 Univ ers 15 mg 5-03 tablet by ity of tablet 19:49: mouth in [place] [address] the Medical morning. Branch ASPIRIN 2023-0 Yes 81mg Take 81 mg Univ ers ORAL 5-03 by mouth ity of 19:49: in the [place] [address] morning. Medical tablet Branch busPIRone 2023-0 Yes 10mg Take 1 Univer s 10 mg 5-03 tablet by ity of tablet 19:49: mouth in [place] [address] the Medical morning Branch and 1 tablet in the evening. rivaroxaban 2023-0 Yes 15mg Take 1 Univ ers 15 mg 5-03 tablet by ity of tablet 19:49: mouth in [place] [address] the Medical morning. Branch ASPIRIN 2023-0 Yes 81mg Take 81 mg Univ ers ORAL 5-03 by mouth ity of 19:49: in the [place] [address] morning. Medical tablet Branch busPIRone 2023-0 Yes 10mg Take 1 Univer s 10 mg 5-03 tablet by ity of tablet 19:49: mouth in [place] [address] the Medical morning Branch and 1 tablet in the evening. rivaroxaban 2023-0 Yes 15mg Take 1 Univ ers 15 mg 5-03 tablet by ity of tablet 19:49: mouth in [place] [address] the Medical morning. Branch ASPIRIN 2023-0 Yes 81mg Take 81 mg Univ ers ORAL 5-03 by mouth ity of 19:49: in the [place] [address] morning. Medical tablet Branch busPIRone 2023-0 Yes 10mg Take 1 Univer s 10 mg 5-03 tablet by ity of tablet 19:49: mouth in [place] [address] the Medical morning Branch and 1 tablet in the evening. rivaroxaban 2023-0 Yes 15mg Take 1 Univ ers 15 mg 5-03 tablet by ity of tablet 19:49: mouth in [place] [address] the Medical morning. Branch ASPIRIN 2023-0 Yes 81mg Take 81 mg Univ ers ORAL 5-03 by mouth ity of 19:49: in the [place] [address] morning. Medical tablet Branch busPIRone 2023-0 Yes 10mg Take 1 Univer s 10 mg 5-03 tablet by ity of tablet 19:49: mouth in [place] [address] the Medical morning Branch and 1 tablet in the evening. rivaroxaban 2022-0 Yes 15mg Take 1 Univ ers 15 mg 5-03 tablet by ity of tablet 19:49: mouth in [place] [address] the Medical morning. Branch ASPIRIN 2022-0 Yes 81mg Take 81 mg Univ ers ORAL 5-03 by mouth ity of 19:49: in the [place] [address] morning. Medical tablet Branch busPIRone 2022-0 Yes 10mg Take 1 Univer s 10 mg 5-03 tablet by ity of tablet 19:49: mouth in [place] [address] the Medical morning Branch and 1 tablet in the evening. rivaroxaban 2022-0 Yes 15mg Take 1 Univ ers 15 mg 5-03 tablet by ity of tablet 19:49: mouth in [place] [address] the Medical morning. Branch ASPIRIN 2022-0 Yes 81mg Take 81 mg Univ ers ORAL 5-03 by mouth ity of 19:49: in the [place] [address] morning. Medical tablet Branch benazepriL 2022-0 2022- No 10mg Take 1 Univ ers 10 mg 5-03 05-03 tablet by ity of tablet 17:28: 00:00 mouth in [place] 05 :00 the Medical morning. Branch potassium 2022-0 2022- No 1{tbl} Take 1 Uni vers chloride 5-03 05-03 tablet by ity o f (KCL-20 17:28: 00:00 mouth in [place] ORAL) 05 :00 the Medical morning Branch [...] of 0.02 % 13:00: 19:13 , TID, [place] nebulizer 00 :37 First dose Medi lucho [...] of 0.02 % 09:00: 12:09 , Q4H, [place] nebulizer 00 :19 First dose Medi lucho [...] IV Push, ity of (PF)) 08:03: Q6HPRN, [place] injection 4 53 Starting Medi lucho mg [...] 03 Oral, ity of (TYLENOL) 08:03: Q6HPRN, [place] tablet 650 35 Starting Medic al mg [...] ity of PF 06:58: 07:06 ONCE, 1 [place] injection 00 :00 dose, On Medica l 10 mg Tue01/19/23 Branch at 0200, 1 mL ipratropium 2022-0 2022- No .5mg 0.5 mg, Un igor (ATROVENT) 01-19-03 Inhalation it y of 0.02 % 06:45: 07:09 , ONCE, 1 [place] nebulizer 00 :00 dose, On Medica l solution Tue01/19/23 Branc h 0.5 mg at 0145, MICHAEL ipratropium 3-0 Yes [id number] .5mg Inhale 2.5 Univers 0.02 % 5-03 mL every 6 ity of nebulizer 00:00: (six) [place] solution 00 hours as Medical needed for Branch Wheezing, Shortness of Breath, Bronchospa sm or Chest tightness. guaiFENesin 2023-0 Yes [id number] 200mg Take 10 mL Univers 100 mg/5 mL 5-03 by mouth ity of solution 00:00: every 6 [place] 00 (six) Medical hours as Branch needed for Cough. ipratropium 2023-0 Yes [id number] .5mg Inhale 2.5 Univers 0.02 % 5-03 mL every 6 ity of nebulizer 00:00: (six) [place] solution 00 hours as Medical needed for Branch Wheezing, Shortness of Breath, Bronchospa sm or Chest tightness. guaiFENesin 2023-0 Yes [id number] 200mg Take 10 mL Univers 100 mg/5 mL 5-03 by mouth ity of solution 00:00: every 6 [place] 00 (six) Medical hours as Branch needed for Cough. ipratropium 2023-0 Yes [id number] .5mg Inhale 2.5 Univers 0.02 % 5-03 mL every 6 ity of nebulizer 00:00: (six) [place] solution 00 hours as Medical needed for Branch Wheezing, Shortness of Breath, Bronchospa sm or Chest tightness. guaiFENesin 2023-0 Yes [id number] 200mg Take 10 mL Univers 100 mg/5 mL 5-03 by mouth ity of solution 00:00: every 6 [place] 00 (six) Medical hours as Branch needed for Cough. ipratropium 2023-0 Yes [id number] .5mg Inhale 2.5 Univers 0.02 % 5-03 mL every 6 ity of nebulizer 00:00: (six) [place] solution 00 hours as Medical needed for Branch Wheezing, Shortness of Breath, Bronchospa sm or Chest tightness. guaiFENesin 2023-0 Yes [id number] 200mg Take 10 mL Univers 100 mg/5 mL 5-03 by mouth ity of solution 00:00: every 6 [place] 00 (six) Medical hours as Branch needed for Cough. ipratropium 2023-0 Yes [id number] .5mg Inhale 2.5 Univers 0.02 % 5-03 mL every 6 ity of nebulizer 00:00: (six) [place] solution 00 hours as Medical needed for Branch Wheezing, Shortness of Breath, Bronchospa sm or Chest tightness. guaiFENesin 2023-0 Yes [id number] 200mg Take 10 mL Univers 100 mg/5 mL 5-03 by mouth ity of solution 00:00: every 6 [place] 00 (six) Medical hours as Branch needed for Cough. ipratropium 2023-0 Yes [id number] .5mg Inhale 2.5 Univers 0.02 % 5-03 mL every 6 ity of nebulizer 00:00: (six) [place] solution 00 hours as Medical needed for Branch Wheezing, Shortness of Breath, Bronchospa sm or Chest tightness. guaiFENesin 2023-0 Yes [id number] 200mg Take 10 mL Univers 100 mg/5 mL 5-03 by mouth ity of solution 00:00: every 6 [place] 00 (six) Medical hours as Branch needed for Cough. ipratropium 2023-0 Yes [id number] .5mg Inhale 2.5 Univers 0.02 % 5-03 mL every 6 ity of nebulizer 00:00: (six) [place] solution 00 hours as Medical needed for Branch Wheezing, Shortness of Breath, Bronchospa sm or Chest tightness. guaiFENesin 2023-0 Yes [id number] 200mg Take 10 mL Univers 100 mg/5 mL 5-03 by mouth ity of solution 00:00: every 6 [place] 00 (six) Medical hours as Branch needed for Cough. ipratropium 2023-0 Yes [id number] .5mg Inhale 2.5 Univers 0.02 % 5-03 mL every 6 ity of nebulizer 00:00: (six) [place] solution 00 hours as Medical needed for Branch Wheezing, Shortness of Breath, Bronchospa sm or Chest tightness. guaiFENesin 2023-0 Yes [id number] 200mg Take 10 mL [facility] 100 mg/5 mL 5-03 by mouth ity of solution 00:00: every 6 [place] 00 (six) Medical hours as Branch needed for Cough. ipratropium 2023-0 Yes [id number] .5mg Inhale 2.5 Univers 0.02 % 5-03 mL every 6 ity of nebulizer 00:00: (six) [place] solution 00 hours as Medical needed for Branch Wheezing, Shortness of Breath, Bronchospa sm or Chest tightness. guaiFENesin 2023-0 Yes [id number] 200mg Take 10 mL Univers 100 mg/5 mL 5-03 by mouth ity of solution 00:00: every 6 [place] 00 (six) Medical hours as Branch needed for Cough. ipratropium 2023-0 Yes [id number] .5mg Inhale 2.5 Univers 0.02 % 5-03 mL every 6 ity of nebulizer 00:00: (six) [place] solution 00 hours as Medical needed for Branch Wheezing, Shortness of Breath, Bronchospa sm or Chest tightness. guaiFENesin 2023-0 Yes [id number] 200mg Take 10 mL Univers 100 mg/5 mL 5-03 by mouth ity of solution 00:00: every 6 [place] 00 (six) Medical hours as Branch needed for Cough. ipratropium 2023-0 Yes [id number] .5mg Inhale 2.5 Univers 0.02 % 5-03 mL every 6 ity of nebulizer 00:00: (six) [place] solution 00 hours as Medical needed for Branch Wheezing, Shortness of Breath, Bronchospa sm or Chest tightness. guaiFENesin 2023-0 Yes [id number] 200mg Take 10 mL Univers 100 mg/5 mL 5-03 by mouth ity of solution 00:00: every 6 [place] 00 (six) Medical hours as Branch needed for Cough. ipratropium 2023-0 Yes [id number] .5mg Inhale 2.5 Univers 0.02 % 5-03 mL every 6 ity of nebulizer 00:00: (six) [place] solution 00 hours as Medical needed for Branch Wheezing, Shortness of Breath, Bronchospa sm or Chest tightness. guaiFENesin 2023-0 Yes [id number] 200mg Take 10 mL [facility] 100 mg/5 mL 5-03 by mouth ity of solution 00:00: every 6 [place] 00 (six) Medical hours as Branch needed for Cough. ipratropium 2023-0 Yes [id number] .5mg Inhale 2.5 Univers 0.02 % 5-03 mL every 6 ity of nebulizer 00:00: (six) [place] solution 00 hours as Medical needed for Branch Wheezing, Shortness of Breath, Bronchospa sm or Chest tightness. guaiFENesin 2023-0 Yes [id number] 200mg Take 10 mL [facility] 100 mg/5 mL 5-03 by mouth ity of solution 00:00: every 6 [place] 00 (six) Medical hours as Branch needed for Cough. ipratropium 2023-0 Yes [id number] .5mg Inhale 2.5 [facility] 0.02 % 5-03 mL every 6 ity of nebulizer 00:00: (six) [place] solution 00 hours as Medical needed for Branch Wheezing, Shortness of Breath, Bronchospa sm or Chest tightness. guaiFENesin 2023-0 Yes [id number] 200mg Take 10 mL [facility] 100 mg/5 mL 5-03 by mouth ity of solution 00:00: every 6 [place] 00 (six) Medical hours as Branch needed for Cough. ipratropium 2023-0 Yes [id number] .5mg Inhale 2.5 [facility] 0.02 % 5-03 mL every 6 ity of nebulizer 00:00: (six) [place] solution 00 hours as Medical needed for Branch Wheezing, Shortness of Breath, Bronchospa sm or Chest tightness. guaiFENesin 2023-0 Yes [id number] 200mg Take 10 mL [facility] 100 mg/5 mL 5-03 by mouth ity of solution 00:00: every 6 [place] 00 (six) Medical hours as Branch needed for Cough. ipratropium 2023-0 Yes [id number] .5mg Inhale 2.5 [facility] 0.02 % 5-03 mL every 6 ity of nebulizer 00:00: (six) [place] solution 00 hours as Medical needed for Branch Wheezing, Shortness of Breath, Bronchospa sm or Chest tightness. guaiFENesin 2023-0 Yes [id number] 200mg Take 10 mL [facility] 100 mg/5 mL 5-03 by mouth ity of solution 00:00: every 6 [place] 00 (six) Medical hours as Branch needed for Cough. ipratropium 2023-0 Yes [id number] .5mg Inhale 2.5 [facility] 0.02 % 5-03 mL every 6 ity of nebulizer 00:00: (six) [place] solution 00 hours as Medical needed for Branch Wheezing, Shortness of Breath, Bronchospa sm or Chest tightness. guaiFENesin 2023-0 Yes [id number] 200mg Take 10 mL [facility] 100 mg/5 mL 5-03 by mouth ity of solution 00:00: every 6 [place] 00 (six) Medical hours as Branch needed for Cough. ipratropium 2023-0 Yes [id number] .5mg Inhale 2.5 [facility] 0.02 % 5-03 mL every 6 ity of nebulizer 00:00: (six) [place] solution 00 hours as Medical needed for Branch Wheezing, Shortness of Breath, Bronchospa sm or Chest tightness. guaiFENesin 2023-0 Yes [id number] 200mg Take 10 mL [facility] 100 mg/5 mL 5-03 by mouth ity of solution 00:00: every 6 [place] 00 (six) Medical hours as Branch needed for Cough. ipratropium 2023-0 Yes [id number] .5mg Inhale 2.5 [facility] 0.02 % 5-03 mL every 6 ity of nebulizer 00:00: (six) [place] solution 00 hours as Medical needed for Branch Wheezing, Shortness of Breath, Bronchospa sm or Chest tightness. guaiFENesin 2023-0 Yes [id number] 200mg Take 10 mL [facility] 100 mg/5 mL 5-03 by mouth ity of solution 00:00: every 6 [place] 00 (six) Medical hours as Branch needed for Cough. guaiFENesin 2023-0 Yes [id number] 200mg Take 10 mL [facility] 100 mg/5 mL 5-03 by mouth ity of solution 00:00: every 6 [place] 00 (six) Medical hours as Branch needed for Cough. guaiFENesin 2023-0 Yes [id number] 200mg Take 10 mL [facility] 100 mg/5 mL 5-03 by mouth ity of solution 00:00: every 6 [place] 00 (six) Medical hours as Branch needed for Cough. guaiFENesin 2023-0 Yes [id number] 200mg Take 10 mL [facility] 100 mg/5 mL 5-03 by mouth ity of solution 00:00: every 6 [place] 00 (six) Medical hours as Branch needed for Cough. guaiFENesin 2023-0 Yes [id number] 200mg Take 10 mL [facility] 100 mg/5 mL 5-03 by mouth ity of solution 00:00: every 6 [place] 00 (six) Medical hours as Branch needed for Cough. guaiFENesin 2023-0 Yes [id number] 200mg Take 10 mL [facility] 100 mg/5 mL 5-03 by mouth ity of solution 00:00: every 6 [place] 00 (six) Medical hours as Branch needed for Cough. guaiFENesin 2023-0 Yes [id number] 200mg Take 10 mL [facility] 100 mg/5 mL 5-03 by mouth ity of solution 00:00: every 6 [place] 00 (six) Medical hours as Branch needed for Cough. guaiFENesin 2023-0 Yes [id number] 200mg Take 10 mL [facility] 100 mg/5 mL 5-03 by mouth ity of solution 00:00: every 6 [place] 00 (six) Medical hours as Branch needed for Cough. guaiFENesin 2023-0 Yes [id number] 200mg Take 10 mL [facility] 100 mg/5 mL 5-03 by mouth ity of solution 00:00: every 6 [place] 00 (six) Medical hours as Branch needed for Cough. guaiFENesin 2023-0 Yes [id number] 200mg Take 10 mL [facility] 100 mg/5 mL 5-03 by mouth ity of solution 00:00: every 6 [place] 00 (six) Medical hours as Branch needed for Cough. guaiFENesin 2023-0 Yes [id number] 200mg Take 10 mL [facility] 100 mg/5 mL 5-03 by mouth ity of solution 00:00: every 6 [place] 00 (six) Medical hours as Branch needed for Cough. ipratropium 2023-0 2023- No [id number] .5mg Inhale 2.5 [facility] 0.02 % 5-03 06-01 mL every 6 ity of nebulizer 00:00: 00:00 (six) [place] solution 00 :00 hours as Medical needed for Branch Wheezing, Shortness of Breath, Bronchospa sm or Chest tightness. levoFLOXaci 2022-0 2022- No [id number] 500mg Take 1 [facility] n 500 mg 01-19-08 tablet by ity o f tablet 00:00: 04:59 mouth in [place] 00 :00 [facility] for 4 days. levoFLOXaci 2022-0 202- No [id number] 500mg Take 1 [facility] n 500 mg 01-19-08 tablet by ity o f tablet 00:00: 04:59 mouth in [place] 00 :00 [facility] for 4 days. levoFLOXaci 2022- 202- No [id number] 500mg Take 1 [facility] n 500 mg 01-19-08 tablet by ity o f tablet 00:00: 04:59 mouth in [place] 00 :00 [facility] for 4 days. levoFLOXaci 2022-0 2022- No [id number] 500mg Take 1 [facility] n 500 mg 01-19-08 tablet by ity o f tablet 00:00: 04:59 mouth in [place] 00 :00 [facility] for 4 days. levoFLOXaci 2022-0 2022- No [id number] 500mg Take 1 [facility] n 500 mg 01-19-08 tablet by ity o f tablet 00:00: 04:59 mouth in [place] 00 :00 [facility] for 4 days. levoFLOXaci 2022-0 2022- No [id number] 500mg Take 1 [facility] n 500 mg 01-1908 tablet by ity o f tablet 00:00: 04:59 mouth in [place] 00 :00 [facility] for 4 days. levalbutero 2022- No 1.25mg 1.25 mg, Univers l (XOPENEX) 01-17 Inhalation i ty of nebulizer 13:00: 11:56 , TID, [place] solution 00 :39 First dose Medic al 1.25 mg on Tue Branch 01/17/23 at 0800, Until Discontinu ed, Routine methylpredn 2022- No 125mg 125 mg, U nivers isolone sod 01-17 Intravenou i ty of succ 12:00: 11:11 s, ONCE, 1 [place] (SOLU-MEDRO 00 :00 dose, On Medi lucho L) Tue01/17/23 Branch injection at 0700, 2 125 mg mL ipratropium 2022-0 2022- No .5mg 0.5 mg, Un igor (ATROVENT) 01-17- Inhalation it y of 0.02 % 11:45: 11:42 , ONCE, 1 [place] nebulizer 00 :00 dose, On Medica l solution Tue01/17/23 Branc h 0.5 mg at 0645, MICHAEL albuterol 2022-0 Yes [id number] 2{puff} Inhale 2 [facility] 90 5-01 Puffs ity of mcg/actuati 00:00: every 4 [place] as on inhaler 00 (four) Medical hours as Branch needed for Wheezing or Shortness of Breath. albuterol 2022-0 Yes [id number] 2.5mg Inhale 3 [facility] 2.5 mg /3 5-01 mL every 4 ity of mL (0.083 00:00: (four) [place] %) 00 hours. May Medical nebulizer also Branch solution nebulize one extra every 6 hours. predniSONE 2022-0 Yes [id number] 50mg Take 1 [facility] 50 mg 5-01 tablet by ity of tablet 00:00: mouth in [place] 00 the Medical morning. Branch benzonatate 2022-0 Yes [id number] 200mg Take 1 [facility] 200 mg 5-01 capsule by ity of capsule 00:00: mouth 3 [place] 00 (three) Medical times Branch daily as needed for Cough. ipratropium 2022-0 Yes [id number] .5mg Inhale 2.5 [facility] 0.02 % 5-01 mL every 6 ity of nebulizer 00:00: (six) [place] solution 00 hours as Medical needed for Branch Wheezing, Shortness of Breath, Bronchospa sm or Chest tightness. albuterol 2022-0 Yes [id number] 2{puff} Inhale 2 [facility] 90 5-01 Puffs ity of mcg/actuati 00:00: every 4 [place] as on inhaler 00 (four) Medical hours as Branch needed for Wheezing or Shortness of Breath. albuterol 2022-0 Yes [id number] 2.5mg Inhale 3 [facility] 2.5 mg /3 5-01 mL every 4 ity of mL (0.083 00:00: (four) [place] %) 00 hours. May Medical nebulizer also Branch solution nebulize one extra every 6 hours. benzonatate 2022-0 Yes [id number] 200mg Take 1 [facility] 200 mg 5-01 capsule by ity of capsule 00:00: mouth 3 [place] 00 (three) Medical times Branch daily as needed for Cough. albuterol 2022-0 Yes [id number] 2{puff} Inhale 2 [facility] 90 5-01 Puffs ity of mcg/actuati 00:00: every 4 [place] as on inhaler 00 (four) Medical hours as Branch needed for Wheezing or Shortness of Breath. albuterol 2022-0 Yes [id number] 2.5mg Inhale 3 [facility] 2.5 mg /3 5-01 mL every 4 ity of mL (0.083 00:00: (four) [place] %) 00 hours. May Medical nebulizer also Branch solution nebulize one extra every 6 hours. benzonatate 2022-0 Yes [id number] 200mg Take 1 [facility] 200 mg 5-01 capsule by ity of capsule 00:00: mouth 3 00 (three) Medical times Branch daily as needed for Cough. albuterol 2022-0 Yes [id number] 2{puff} Inhale 2 [facility] 90 5-01 Puffs ity of mcg/actuati 00:00: every 4 [place] on inhaler 00 (four) Medical hours as Branch needed for Wheezing or Shortness of Breath. albuterol 2022-0 Yes [id number] 2.5mg Inhale 3 [facility] 2.5 mg /3 5-01 mL every 4 ity of mL (0.083 00:00: (four) [place] %) 00 hours. May Medical nebulizer also Branch solution nebulize one extra every 6 hours. benzonatate 2022-0 Yes [id number] 200mg Take 1 [facility] 200 mg 5-01 capsule by ity of capsule 00:00: mouth 3 [place] 00 (three) Medical times Branch daily as needed for Cough. albuterol 2022-0 Yes [id number] 2{puff} Inhale 2 [facility] 90 5-01 Puffs ity of mcg/actuati 00:00: every 4 [place] on inhaler 00 (four) Medical hours as Branch needed for Wheezing or Shortness of Breath. albuterol 3-0 Yes [id number] 2.5mg Inhale 3 [facility] 2.5 mg /3 5-01 mL every 4 ity of mL (0.083 00:00: (four) [place] %) 00 hours. May Medical nebulizer also Branch solution nebulize one extra every 6 hours. benzonatate 3-0 Yes [id number] 200mg Take 1 [facility] 200 mg 5-01 capsule by ity of capsule 00:00: mouth 3 [place] (three) Medical times Branch daily as needed for Cough. albuterol 2022-0 Yes [id number] 2{puff} Inhale 2 [facility] 90 5-01 Puffs ity of mcg/actuati 00:00: every 4 [place] on inhaler 00 (four) Medical hours as Branch needed for Wheezing or Shortness of Breath. albuterol 2022-0 Yes [id number] 2.5mg Inhale 3 [facility] 2.5 mg /3 5-01 mL every 4 ity of mL (0.083 00:00: (four) [place] %) 00 hours. May Medical nebulizer also Branch solution nebulize one extra every 6 hours. benzonatate 2022-0 Yes [id number] 200mg Take 1 [facility] 200 mg 5-01 capsule by ity of capsule 00:00: mouth 3 (three) Medical times Branch daily as needed for Cough. albuterol 3-0 Yes [id number] 2{puff} Inhale 2 [facility] 90 5-01 Puffs ity of mcg/actuati 00:00: every 4 [place] as on inhaler 00 (four) Medical hours as Branch needed for Wheezing or Shortness of Breath. albuterol 3-0 Yes [id number] 2.5mg Inhale 3 [facility] 2.5 mg /3 5-01 mL every 4 ity of mL (0.083 00:00: (four) [place] %) 00 hours. May Medical nebulizer also Branch solution nebulize one extra every 6 hours. benzonatate 3-0 Yes [id number] 200mg Take 1 [facility] 200 mg 5-01 capsule by ity of capsule 00:00: mouth 3 (three) Medical times Branch daily as needed for Cough. albuterol 2023-0 Yes [id number] 2{puff} Inhale 2 [facility] 90 5-01 Puffs ity of mcg/actuati 00:00: every 4 [place] as on inhaler 00 (four) Medical hours as Branch needed for Wheezing or Shortness of Breath. albuterol 2022-0 Yes [id number] 2.5mg Inhale 3 [facility] 2.5 mg /3 5-01 mL every 4 ity of mL (0.083 00:00: (four) [place] %) 00 hours. May Medical nebulizer also Branch solution nebulize one extra every 6 hours. benzonatate 2022-0 Yes [id number] 200mg Take 1 [facility] 200 mg 5-01 capsule by ity of capsule 00:00: mouth 3 [place] 00 (three) Medical times Branch daily as needed for Cough. albuterol 2022-0 Yes [id number] 2{puff} Inhale 2 [facility] 90 5-01 Puffs ity of mcg/actuati 00:00: every 4 [place] on inhaler 00 (four) Medical hours as Branch needed for Wheezing or Shortness of Breath. albuterol 2022-0 Yes [id number] 2.5mg Inhale 3 [facility] 2.5 mg /3 5-01 mL every 4 ity of mL (0.083 00:00: (four) [place] %) 00 hours. May Medical nebulizer also Branch solution nebulize one extra every 6 hours. benzonatate 2022-0 Yes [id number] 200mg Take 1 [facility] 200 mg 5-01 capsule by ity of capsule 00:00: mouth 3 [place] 00 (three) Medical times Branch daily as needed for Cough. albuterol 2022-0 Yes [id number] 2{puff} Inhale 2 [facility] 90 5-01 Puffs ity of mcg/actuati 00:00: every 4 [place] on inhaler 00 (four) Medical hours as Branch needed for Wheezing or Shortness of Breath. albuterol 2022-0 Yes [id number] 2.5mg Inhale 3 [facility] 2.5 mg /3 5-01 mL every 4 ity of mL (0.083 00:00: (four) [place] %) 00 hours. May Medical nebulizer also Branch solution nebulize one extra every 6 hours. benzonatate 2022-0 Yes [id number] 200mg Take 1 [facility] 200 mg 5-01 capsule by ity of capsule 00:00: mouth 3 (three) Medical times Branch daily as needed for Cough. albuterol 2022-0 Yes [id number] 2{puff} Inhale 2 [facility] 90 5-01 Puffs ity of mcg/actuati 00:00: every 4 [place] as on inhaler 00 (four) Medical hours as Branch needed for Wheezing or Shortness of Breath. albuterol 3-0 Yes [id number] 2.5mg Inhale 3 [facility] 2.5 mg /3 5-01 mL every 4 ity of mL (0.083 00:00: (four) [place] %) 00 hours. May Medical nebulizer also Branch solution nebulize one extra every 6 hours. benzonatate 2022-0 Yes [id number] 200mg Take 1 [facility] 200 mg 5-01 capsule by ity of capsule 00:00: mouth 3 (three) Medical times Branch daily as needed for Cough. albuterol 2022-0 Yes [id number] 2{puff} Inhale 2 [facility] 90 5-01 Puffs ity of mcg/actuati 00:00: every 4 [place] as on inhaler 00 (four) Medical hours as Branch needed for Wheezing or Shortness of Breath. albuterol 3-0 Yes [id number] 2.5mg Inhale 3 [facility] 2.5 mg /3 5-01 mL every 4 ity of mL (0.083 00:00: (four) [place] %) 00 hours. May Medical nebulizer also Branch solution nebulize one extra every 6 hours. benzonatate 3-0 Yes [id number] 200mg Take 1 [facility] 200 mg 5-01 capsule by ity of capsule 00:00: mouth 3 (three) Medical times Branch daily as needed for Cough. albuterol 2023-0 Yes [id number] 2{puff} Inhale 2 [facility] 90 5-01 Puffs ity of mcg/actuati 00:00: every 4 [place] on inhaler 00 (four) Medical hours as Branch needed for Wheezing or Shortness of Breath. albuterol 2023-0 Yes [id number] 2.5mg Inhale 3 [facility] 2.5 mg /3 5-01 mL every 4 ity of mL (0.083 00:00: (four) [place] %) 00 hours. May Medical nebulizer also Branch solution nebulize one extra every 6 hours. benzonatate 2022-0 Yes [id number] 200mg Take 1 [facility] 200 mg 5-01 capsule by ity of capsule 00:00: mouth 3 [place] (three) Medical times Branch daily as needed for Cough. albuterol 2022-0 Yes [id number] 2{puff} Inhale 2 [facility] 90 5-01 Puffs ity of mcg/actuati 00:00: every 4 [place] as on inhaler 00 (four) Medical hours as Branch needed for Wheezing or Shortness of Breath. albuterol 2022-0 Yes [id number] 2.5mg Inhale 3 [facility] 2.5 mg /3 5-01 mL every 4 ity of mL (0.083 00:00: (four) [place] %) 00 hours. May Medical nebulizer also Branch solution nebulize one extra every 6 hours. benzonatate 2022-0 Yes [id number] 200mg Take 1 [facility] 200 mg 5-01 capsule by ity of capsule 00:00: mouth 3 (three) Medical times Branch daily as needed for Cough. albuterol 2022-0 Yes [id number] 2{puff} Inhale 2 [facility] 90 5-01 Puffs ity of mcg/actuati 00:00: every 4 [place] as on inhaler 00 (four) Medical hours as Branch needed for Wheezing or Shortness of Breath. albuterol 2022-0 Yes [id number] 2.5mg Inhale 3 [facility] 2.5 mg /3 5-01 mL every 4 ity of mL (0.083 00:00: (four) [place] %) 00 hours. May Medical nebulizer also Branch solution nebulize one extra every 6 hours. benzonatate 2022-0 Yes [id number] 200mg Take 1 [facility] 200 mg 5-01 capsule by ity of capsule 00:00: mouth 3 (three) Medical times Branch daily as needed for Cough. albuterol 2022-0 Yes [id number] 2{puff} Inhale 2 [facility] 90 5-01 Puffs ity of mcg/actuati 00:00: every 4 [place] on inhaler 00 (four) Medical hours as Branch needed for Wheezing or Shortness of Breath. albuterol 2022-0 Yes [id number] 2.5mg Inhale 3 [facility] 2.5 mg /3 5-01 mL every 4 ity of mL (0.083 00:00: (four) [place] %) 00 hours. May Medical nebulizer also Branch solution nebulize one extra every 6 hours. benzonatate 3-0 Yes [id number] 200mg Take 1 [facility] 200 mg 5-01 capsule by ity of capsule 00:00: mouth 3 (three) Medical times Branch daily as needed for Cough. albuterol 2022-0 Yes [id number] 2{puff} Inhale 2 [facility] 90 5-01 Puffs ity of mcg/actuati 00:00: every 4 [place] as on inhaler 00 (four) Medical hours as Branch needed for Wheezing or Shortness of Breath. albuterol 3-0 Yes [id number] 2.5mg Inhale 3 [facility] 2.5 mg /3 5-01 mL every 4 ity of mL (0.083 00:00: (four) [place] %) 00 hours. May Medical nebulizer also Branch solution nebulize one extra every 6 hours. benzonatate 3-0 Yes [id number] 200mg Take 1 [facility] 200 mg 5-01 capsule by ity of capsule 00:00: mouth 3 (three) Medical times Branch daily as needed for Cough. albuterol 3-0 Yes [id number] 2.5mg Inhale 3 [facility] 2.5 mg /3 5-01 mL every 4 ity of mL (0.083 00:00: (four) [place] %) 00 hours. May Medical nebulizer also Branch solution nebulize one extra every 6 hours. benzonatate 3-0 Yes [id number] 200mg Take 1 [facility] 200 mg 5-01 capsule by ity of capsule 00:00: mouth 3 (three) Medical times Branch daily as needed for Cough. albuterol 2023-0 Yes [id number] 2.5mg Inhale 3 [facility] 2.5 mg /3 5-01 mL every 4 ity of mL (0.083 00:00: (four) [place] %) 00 hours. May Medical nebulizer also Branch solution nebulize one extra every 6 hours. benzonatate 2023-0 Yes [id number] 200mg Take 1 [facility] 200 mg 5-01 capsule by ity of capsule 00:00: mouth 3 (three) Medical times Branch daily as needed for Cough. albuterol 3-0 Yes [id number] 2.5mg Inhale 3 [facility] 2.5 mg /3 5-01 mL every 4 ity of mL (0.083 00:00: (four) [place] %) 00 hours. May Medical nebulizer also Branch solution nebulize one extra every 6 hours. benzonatate 3-0 Yes [id number] 200mg Take 1 [facility] 200 mg 5-01 capsule by ity of capsule 00:00: mouth 3 [place] (three) Medical times Branch daily as needed for Cough. albuterol 2022-0 Yes [id number] 2.5mg Inhale 3 [facility] 2.5 mg /3 5-01 mL every 4 ity of mL (0.083 00:00: (four) [place] %) 00 hours. May Medical nebulizer also Branch solution nebulize one extra every 6 hours. albuterol 2022-0 Yes [id number] 2.5mg Inhale 3 [facility] 2.5 mg /3 5-01 mL every 4 ity of mL (0.083 00:00: (four) [place] %) 00 hours. May Medical nebulizer also Branch solution nebulize one extra every 6 hours. albuterol 2022-0 Yes [id number] 2.5mg Inhale 3 [facility] 2.5 mg /3 5-01 mL every 4 ity of mL (0.083 00:00: (four) [place] %) 00 hours. May Medical nebulizer also Branch solution nebulize one extra every 6 hours. albuterol 3-0 Yes [id number] 2.5mg Inhale 3 [facility] 2.5 mg /3 5-01 mL every 4 ity of mL (0.083 00:00: (four) [place] %) 00 hours. May Medical nebulizer also Branch solution nebulize one extra every 6 hours. albuterol 3-0 Yes [id number] 2.5mg Inhale 3 [facility] 2.5 mg /3 5-01 mL every 4 ity of mL (0.083 00:00: (four) [place] %) 00 hours. May Medical nebulizer also Branch solution nebulize one extra every 6 hours. albuterol 3-0 Yes [id number] 2.5mg Inhale 3 [facility] 2.5 mg /3 5-01 mL every 4 ity of mL (0.083 00:00: (four) [place] %) 00 hours. May Medical nebulizer also Branch solution nebulize one extra every 6 hours. albuterol 2022- No [id number] 2.5mg Inhale 3 [facility] 2.5 mg /3 5-01 06-15 mL every 4 ity of mL (0.083 00:00: 00:00 (four) [place] %) 00 :00 hours. May Medical nebulizer also Branch solution nebulize one extra every 6 hours. benzonatate 2022- No [id number] 200mg Take 1 [facility] 200 mg 01-17- capsule by ity of capsule 00:00: 00:00 mouth 3 [place] 00 :00 (three) Medical times Branch daily as needed for Cough. albuterol 2022- No [id number] 2{puff} Inhale 2 [facility] 90 01-17 05-19 Puffs ity of mcg/actuati 00:00: 00:00 every 4 [place] on inhaler 00 :00 (four) Medical hours as Branch needed for Wheezing or Shortness of Breath. predniSONE 2022- No [id number] 50mg Take 1 [facility] 50 mg 01-17 05-03 tablet by ity of tablet 00:00: 00:00 mouth in [place] 00 :00 the Medical morning. Branch ipratropium 2022- No [id number] .5mg Inhale 2.5 [facility] 0.02 % 01-17 [...] by ity of tablet 14:36: mouth in [place] 57 the Medical morning Branch and 1 tablet in the evening. rivaroxaban 2023-0 Yes 15mg Take 1 Univ ers 15 mg 4-21 tablet by ity of tablet 14:36: mouth in [place] [address] the Medical morning. Branch ASPIRIN 2023-0 Yes 81mg Take 81 mg Univ ers ORAL 4-21 by mouth ity of 14:36: in the [place] [address] morning. Medical tablet Branch benazepriL 2023-0 Yes 10mg Take 1 Unive rs 10 mg 4-21 tablet by ity of tablet 14:36: mouth in [place] [address] the Medical morning. Branch busPIRone 2023-0 Yes 10mg Take 1 Univer s 10 mg 4-21 tablet by ity of tablet 14:36: mouth in [place] [address] the Medical morning Branch and 1 tablet in the evening. rivaroxaban 2023-0 Yes 15mg Take 1 Univ ers 15 mg 4-21 tablet by ity of tablet 14:36: mouth in [place] [address] the Medical morning. Branch ASPIRIN 2023-0 Yes 81mg Take 81 mg Univ ers ORAL 4-21 by mouth ity of 14:36: in the [place] [address] morning. Medical tablet Branch benazepriL 2023-0 Yes 10mg Take 1 Unive rs 10 mg 4-21 tablet by ity of tablet 14:36: mouth in [place] [address] the Medical morning. Branch busPIRone 2023-0 Yes 10mg Take 1 Univer s 10 mg 4-21 tablet by ity of tablet 14:36: mouth in [place] [address] the Medical morning Branch and 1 tablet in the evening. rivaroxaban 2023-0 Yes 15mg Take 1 Univ ers 15 mg 4-21 tablet by ity of tablet 14:36: mouth in [place] [address] the Medical morning. Branch ASPIRIN 2023-0 Yes 81mg Take 81 mg Univ ers ORAL 4-21 by mouth ity of 14:36: in the [place] [address] morning. Medical tablet Branch benazepriL 2023-0 Yes 10mg Take 1 Unive rs 10 mg 4-21 tablet by ity of tablet 14:36: mouth in [place] [address] the Medical morning. Branch busPIRone 2023-0 Yes 10mg Take 1 Univer s 10 mg 4-21 tablet by ity of tablet 14:36: mouth in [place] [address] the Medical morning Branch and 1 tablet in the evening. rivaroxaban 2023-0 Yes 15mg Take 1 Univ ers 15 mg 4-21 tablet by ity of tablet 14:36: mouth in [place] [address] the Medical morning. Branch ASPIRIN 2023-0 Yes 81mg Take 81 mg Univ ers ORAL 4-21 by mouth ity of 14:36: in the [place] [address] morning. Medical tablet Branch benazepriL 2023-0 Yes 10mg Take 1 [facility] rs 10 mg 4-21 tablet by ity of tablet 14:36: mouth in [place] [address] the Medical morning. Branch donepeziL 5 3-0 Yes 5mg Take 1 Univ ers mg tablet 4-21 tablet by ity o f 00:00: mouth in [place] 00 the Medical morning. Branch memantine 5 2023-0 Yes 5mg Take 1 Univ ers mg tablet 4-21 tablet by ity o f 00:00: mouth in [place] 00 the Medical morning. Branch donepeziL 5 2023-0 Yes 5mg Take 1 Univ ers mg tablet 4-21 tablet by ity o f 00:00: mouth in [place] 00 the Medical morning. Branch memantine 5 2023-0 Yes 5mg Take 1 Univ ers mg tablet 4-21 tablet by ity o f 00:00: mouth in [place] 00 the Medical morning. Branch donepeziL 5 2023-0 Yes 5mg Take 1 Univ ers mg tablet 4-21 tablet by ity o f 00:00: mouth in [place] 00 the Medical morning. Branch memantine 5 2023-0 Yes 5mg Take 1 Univ ers mg tablet 4-21 tablet by ity o f 00:00: mouth in [place] 00 the Medical morning. Branch donepeziL 5 2023-0 Yes 5mg Take 1 Univ ers mg tablet 4-21 tablet by ity o f 00:00: mouth in [place] 00 the Medical morning. Branch memantine 5 2023-0 Yes 5mg Take 1 Univ ers mg tablet 4-21 tablet by ity o f 00:00: mouth in [place] 00 the Medical morning. Branch donepeziL 5 2023-0 Yes 5mg Take 1 Univ ers mg tablet 4-21 tablet by ity o f 00:00: mouth in [place] 00 the Medical morning. Branch memantine 5 2023-0 Yes 5mg Take 1 Univ ers mg tablet 4-21 tablet by ity o f 00:00: mouth in [place] 00 the Medical morning. Branch donepeziL 5 2023-0 Yes 5mg Take 1 Univ ers mg tablet 4-21 tablet by ity o f 00:00: mouth in [place] 00 the Medical morning. Branch memantine 5 2023-0 Yes 5mg Take 1 Univ ers mg tablet 4-21 tablet by ity o f 00:00: mouth in [place] the Medical morning. Branch donepeziL 5 2023-0 Yes 5mg Take 1 Univ ers mg tablet 4-21 tablet by ity o f 00:00: mouth in [place] 00 the Medical morning. Branch memantine 5 2023-0 Yes 5mg Take 1 Univ ers mg tablet 4-21 tablet by ity o f 00:00: mouth in [place] the Medical morning. Branch donepeziL 5 2023-0 Yes 5mg Take 1 Univ ers mg tablet 4-21 tablet by ity o f 00:00: mouth in [place] 00 the Medical morning. Branch memantine 5 2023-0 Yes 5mg Take 1 Univ ers mg tablet 4-21 tablet by ity o f 00:00: mouth in [place] 00 the Medical morning. Branch donepeziL 5 2023-0 Yes 5mg Take 1 Univ ers mg tablet 4-21 tablet by ity o f 00:00: mouth in [place] 00 the Medical morning. Branch memantine 5 2023-0 Yes 5mg Take 1 [facility] ers mg tablet 4-21 tablet by ity o f 00:00: mouth in [place] 00 the Medical morning. Branch donepeziL 5 2023-0 Yes 5mg Take 1 [facility] ers mg tablet 4-21 tablet by ity o f 00:00: mouth in [place] 00 the Medical morning. Branch memantine 5 2023-0 Yes 5mg Take 1 [facility] ers mg tablet 4-21 tablet by ity o f 00:00: mouth in [place] 00 the Medical morning. Branch donepeziL 5 2023-0 Yes 5mg Take 1 [facility] ers mg tablet 4-21 tablet by ity o f 00:00: mouth in [place] 00 the Medical morning. Branch memantine 5 2023-0 Yes 5mg Take 1 [facility] ers mg tablet 4-21 tablet by ity o f 00:00: mouth in [place] 00 the Medical morning. Branch donepeziL 5 2023-0 Yes 5mg Take 1 [facility] ers mg tablet 4-21 tablet by ity o f 00:00: mouth in [place] 00 the Medical morning. Branch memantine 5 2023-0 Yes 5mg Take 1 [facility] ers mg tablet 4-21 tablet by ity o f 00:00: mouth in [place] 00 the Medical morning. Branch donepeziL 5 2023-0 Yes 5mg Take 1 [facility] ers mg tablet 4-21 tablet by ity o f 00:00: mouth in [place] the Medical morning. Branch memantine 5 2023-0 Yes 5mg Take 1 [facility] ers mg tablet 4-21 tablet by ity o f 00:00: mouth in [place] the Medical morning. Branch donepeziL 5 2023-0 Yes 5mg Take 1 [facility] ers mg tablet 4-21 tablet by ity o f 00:00: mouth in [place] the Medical morning. Branch memantine 5 2023-0 Yes 5mg Take 1 [facility] ers mg tablet 4-21 tablet by ity o f 00:00: mouth in [place] the Medical morning. Branch donepeziL 5 2023-0 Yes 5mg Take 1 [facility] ers mg tablet 4-21 tablet by ity o f 00:00: mouth in [place] the Medical morning. Branch memantine 5 2023-0 Yes 5mg Take 1 [facility] ers mg tablet 4-21 tablet by ity o f 00:00: mouth in [place] 00 the Medical morning. Branch donepeziL 5 2023-0 Yes 5mg Take 1 [facility] ers mg tablet 4-21 tablet by ity o f 00:00: mouth in [place] 00 the Medical morning. Branch memantine 5 2023-0 Yes 5mg Take 1 [facility] ers mg tablet 4-21 tablet by ity o f 00:00: mouth in [place] 00 the Medical morning. Branch donepeziL 5 2023-0 Yes 5mg Take 1 [facility] ers mg tablet 4-21 tablet by ity o f 00:00: mouth in [place] 00 the Medical morning. Branch memantine 5 2023-0 Yes 5mg Take 1 [facility] ers mg tablet 4-21 tablet by ity o f 00:00: mouth in [place] 00 the Medical morning. Branch donepeziL 5 2023-0 Yes 5mg Take 1 [facility] ers mg tablet 4-21 tablet by ity o f 00:00: mouth in [place] 00 the Medical morning. Branch memantine 5 2023-0 Yes 5mg Take 1 [facility] ers mg tablet 4-21 tablet by ity o f 00:00: mouth in [place] the Medical morning. Branch donepeziL 5 2023-0 Yes 5mg Take 1 [facility] mg tablet 4-21 tablet by ity o f 00:00: mouth in [place] the Medical morning. Branch memantine 5 2023-0 Yes 5mg Take 1 [facility] ers mg tablet 4-21 tablet by ity o f 00:00: mouth in [place] the Medical morning. Branch donepeziL 5 2023-0 Yes 5mg Take 1 [facility] ers mg tablet 4-21 tablet by ity o f 00:00: mouth in [place] the Medical morning. Branch memantine 5 2023-0 Yes 5mg Take 1 [facility] ers mg tablet 4-21 tablet by ity o f 00:00: mouth in [place] the Medical morning. Branch donepeziL 5 2023-0 Yes 5mg Take 1 [facility] ers mg tablet 4-21 tablet by ity o f 00:00: mouth in [place] the Medical morning. Branch memantine 5 2023-0 Yes 5mg Take 1 [facility] ers mg tablet 4-21 tablet by ity o f 00:00: mouth in [place] 00 the Medical morning. Branch donepeziL 5 2023-0 Yes 5mg Take 1 [facility] ers mg tablet 4-21 tablet by ity o f 00:00: mouth in [place] 00 the Medical morning. Branch memantine 5 2023-0 Yes 5mg Take 1 [facility] ers mg tablet 4-21 tablet by ity o f 00:00: mouth in [place] 00 the Medical morning. Branch donepeziL 5 2023-0 Yes 5mg Take 1 [facility] ers mg tablet 4-21 tablet by ity o f 00:00: mouth in [place] 00 the Medical morning. Branch memantine 5 2023-0 Yes 5mg Take 1 [facility] ers mg tablet 4-21 tablet by ity o f 00:00: mouth in [place] 00 the Medical morning. Branch donepeziL 5 2023-0 Yes 5mg Take 1 [facility] ers mg tablet 4-21 tablet by ity o f 00:00: mouth in [place] 00 the Medical morning. Branch memantine 5 2023-0 Yes 5mg Take 1 [facility] ers mg tablet 4-21 tablet by ity o f 00:00: mouth in [place] 00 the Medical morning. Branch donepeziL 5 2023-0 Yes 5mg Take 1 [facility] ers mg tablet 4-21 tablet by ity o f 00:00: mouth in [place] 00 the Medical morning. Branch memantine 5 2023-0 Yes 5mg Take 1 [facility] ers mg tablet 4-21 tablet by ity o f 00:00: mouth in [place] 00 the Medical morning. Branch donepeziL 5 2023-0 Yes 5mg Take 1 [facility] ers mg tablet 4-21 tablet by ity o f 00:00: mouth in [place] 00 the Medical morning. Branch memantine 5 2023-0 Yes 5mg Take 1 [facility] ers mg tablet 4-21 tablet by ity o f 00:00: mouth in [place] 00 the Medical morning. Branch donepeziL 5 2023-0 Yes 5mg Take 1 [facility] ers mg tablet 4-21 tablet by ity o f 00:00: mouth in [place] 00 the Medical morning. Branch memantine 5 2023-0 Yes 5mg Take 1 [facility] ers mg tablet 4-21 tablet by ity o f 00:00: mouth in [place] 00 the Medical morning. Branch donepeziL 5 2023-0 2023- No 5mg Take 1 Uni vers mg tablet 01-07 tablet by ity of 00:00: 00:00 mouth in [place] 00 :00 the Medical morning. Branch memantine 5 2023-0 2023- No 5mg Take 1 Uni vers mg tablet 01-07 tablet by ity of 00:00: 00:00 mouth in [place] 00 :00 the Medical morning. Branch donepeziL 5 2023-0 2023- No 5mg Take 1 Uni vers mg tablet 01-07 tablet by ity of 00:00: 00:00 mouth in [place] 00 :00 the Medical morning. Branch memantine 5 2023-0 2023- No 5mg Take 1 Uni vers mg tablet 4-21 06-13 tablet by ity of 00:00: 00:00 mouth in [place] 00 :00 the Medical morning. Branch tamsulosin 2023-0 2023- No [id number] .4mg Take 1 [facility] 0.4 mg 24 3-13 01- capsule by ity of hr capsule 00:00: 04:59 mouth in [place] 00 :00 the Medical morning Branch for 30 days. tamsulosin 2023-0 2023- No [id number] .4mg Take 1 [facility] 0.4 mg 24 -13 01- capsule by ity of hr capsule 00:00: 04:59 mouth in [place] 00 :00 the Medical morning Branch for 30 days. tamsulosin 2023-0 2023- No [id number] .4mg Take 1 [facility] 0.4 mg 24 -13 01- capsule by ity of hr capsule 00:00: 04:59 mouth in [place] 00 :00 the [facility] morning Branch for 30 days. tamsulosin 2023-0 2023- No [id number] .4mg Take 1 [facility] 0.4 mg 24 -13 01- capsule by ity of hr capsule 00:00: 04:59 mouth in [place] 00 :00 the Medical morning Branch for 30 days. tamsulosin 2023-0 2023- No [id number] .4mg Take 1 [facility] 0.4 mg 24 -13 01- capsule by ity of hr capsule 00:00: 04:59 mouth in [place] 00 :00 the [facility] morning Branch for 30 days. tamsulosin 2023-0 3- No [id number] .4mg Take 1 [facility] 0.4 mg 24 12-13- capsule by ity of hr capsule 00:00: 04:59 mouth in [place] 00 :00 the [facility] morning Branch for 30 days. donepeziL 2023-0 Yes 5mg 5 mg, Univers (ARICEPT) 3-26 Oral, ity of tablet 5 mg 17:30: [place] First dose Medical [facility] 12/12/22 at 1230, Until Discontinu ed, Routine memantine 2023-0 Yes 5mg 5 mg, Univers (NAMENDA) 3-26 Oral, ity of tablet 5 mg 17:30: [place], [place] 00 First dose Medical on [facility] 12/12/22 at 1230, Until Discontinu ed, Routine
board member approving Restricted medication : TRAVIS ZENG busPIRone 2023-0 Yes 10mg Take 1 Univer s 10 mg 3-26 tablet by ity of tablet 14:37: mouth in [place] 13 the Medical morning Branch and 1 tablet in the evening. rivaroxaban 2023-0 Yes 15mg Take 1 Univ ers (XARELTO) 3-26 tablet by ity o f 15 mg 14:37: mouth in [place] tablet 13 the Medical morning. Branch aspirin 81 3-0 Yes 81mg Take 81 mg U nivers mg chewable 3-26 by mouth ity of tablet 14:37: in the [place] [address] morning. Medical tablet Branch busPIRone 2023-0 Yes 10mg Take 1 Univer s 10 mg 3-26 tablet by ity of tablet 14:37: mouth in [place] [address] the Medical morning Branch and 1 tablet in the evening. rivaroxaban 2023-0 Yes 15mg Take 1 Univ ers (XARELTO) 3-26 tablet by ity o f 15 mg 14:37: mouth in [place] tablet 13 the Medical morning. Branch busPIRone 2023-0 Yes 10mg Take 1 Univer s 10 mg 3-26 tablet by ity of tablet 14:37: mouth in [place] [address] the Medical morning Branch and 1 tablet in the evening. rivaroxaban 2023-0 Yes 15mg Take 1 Univ ers (XARELTO) 3-26 tablet by ity o f 15 mg 14:37: mouth in [place] tablet 13 the Medical morning. Branch aspirin 81 3-0 Yes 81mg Take 81 mg U nivers mg chewable 3-26 by mouth ity of tablet 14:37: in the [place] [address] morning. Medical tablet Branch busPIRone 2023-0 Yes 10mg Take 1 Univer s 10 mg 3-26 tablet by ity of tablet 14:37: mouth in [place] [address] the Medical morning Branch and 1 tablet in the evening. rivaroxaban 2023-0 Yes 15mg Take 1 Univ ers (XARELTO) 3-26 tablet by ity o f 15 mg 14:37: mouth in [place] tablet 13 the Medical morning. Branch aspirin 81 2023-0 Yes 81mg Take 81 mg U nivers mg chewable 3-26 by mouth ity of tablet 14:37: in the [place] 13 morning. Medical tablet Branch tamsulosin Yes .4mg 0.4 mg, Univ ers (FLOMAX) 12-12 Oral, ity of capsule 0.4 14:00: DAILY, [facility] s mg 00 First dose Medical on [place] [facility] 12/12/22 at 0900, Until Discontinu ed, Routine aspirin EC 0 Yes 81mg 81 mg, Unive rs tablet 81 12-12 Oral, ity of mg 14:00: DAILY, [place] 00 First dose Medical on [place] [facility] 12/12/22 at 0900, Until Discontinu ed, Routine methylpredn Yes 40mg 40 mg, Univ ers isolone sod 12-12 Intravenou it y of succ 14:00: s, DAILY, [place] (SOLU-MEDRO 00 First dose Me dical L) (after Branch injection last 40 mg modificati on) on [place] 12/12/22 at 0900, Until Discontinu ed, Routine carvediloL 2022-0 2022- No 25mg Take 1 Univ ers 25 mg 12-12 tablet by ity of tablet 11:47: 00:00 mouth in [place] 13 :00 the Medical morning Branch and 1 tablet in the evening. Take with meals. busPIRone 2022-0 2022- No 30mg Take 1 Unive rs 30 mg 12-12 tablet by ity of tablet 11:47: 00:00 mouth in [place] 13 :00 the Medical morning Branch and 1 tablet in the evening. KCL 20 mEq 2022-0 2022- No Take by Uni vers tablet 12-12 mouth 2 ity of 11:47: 00:00 (two) [place] 13 :00 times Medical daily. Branch benazepriL 2022-0 2022- No 10mg Take 1 Univ ers 10 mg 12-12 tablet by ity of tablet 11:47: 00:00 mouth in [place] 13 :00 the Medical morning. Branch hydroCHLORO 2022-0 2022- No 25mg Take 1 Uni vers thiazide 25 12-12 tablet by it y of mg tablet 11:47: 00:00 mouth in [facility] as 13 :00 the Medical morning. Branch melatonin 2022-0 Yes 6mg 6 mg, Univers (MELATIN) 12-12 Oral, QHS, ity of tablet 6 mg 02:00: First dose [place] 00 on [facility] Medical 12/11/22 at Branch 2100, Until Discontinu ed, Routine atorvastati Yes 40mg 40 mg, Univ ers n (LIPITOR) - Oral, QHS, it y of tablet 40 02:00: First dose [place] mg 00 on [facility] Medical 12/11/22 at Branch 2100, Until Discontinu ed, Routine carvediloL 2022- No [id number] 3.125mg Take 1 Univers 3.125 mg 12-12- tablet by ity o f tablet 00:00: 04:59 mouth in [place] 00 :00 the [facility] morning Branch and 1 tablet in the evening. Take with meals. Do all this for 30 days. atorvastati 2022- No [id number] 40mg Take 1 Univers n 40 mg 12-12 tablet by ity of tablet 00:00: 04:59 mouth at [place] [facility] Branch days. donepeziL 5 2022- No [id number] 5mg Take 1 Univers mg tablet 12-12 tablet by ity of 00:00: 04:59 mouth in [place] 00 :[address] [facility] for 30 days. memantine 5 2022- No [id number] 5mg Take 1 Univers mg tablet 12-12- tablet by ity of 00:00: 04:59 mouth in [place] 00 :[address] [facility] for 30 days. carvediloL 2022- No [id number] 3.125mg Take 1 Univers 3.125 mg 12-12 tablet by ity o f tablet 00:00: 04:59 mouth in [place] 00 :00 the [facility] morning Branch and 1 tablet in the evening. Take with meals. Do all this for 30 days. atorvastati 2022- No [id number] 40mg Take 1 Univers n 40 mg 12-12- tablet by ity of tablet 00:00: 04:59 mouth at [place] 00 :00 [facility] Medical for 30 Branch days. donepeziL 5 2022- No [id number] 5mg Take 1 Univers mg tablet 12-12 tablet by ity of 00:00: 04:59 mouth in [place] 00 :[address] [facility] for 30 days. memantine 5 2022- No [id number] 5mg Take 1 Univers mg tablet -12 01- tablet by ity of 00:00: 04:59 mouth in [place] 00 :[address] [facility] for 30 days. carvediloL 2022- No [id number] 3.125mg Take 1 Univers 3.125 mg 3-12 01- tablet by ity o f tablet 00:00: 04:59 mouth in [place] 00 :[address] [facility] and 1 tablet in the evening. Take with meals. Do all this for 30 days. atorvastati 2022- No [id number] 40mg Take 1 Univers n 40 mg -12 01- tablet by ity of tablet 00:: 04:59 mouth at [place] [facility] Branch [facility] donepeziL 5 2022- No [id number] 5mg Take 1 Univers mg tablet 12-12- tablet by ity of 00:00: 04:59 mouth in [place] 00 :00 [facility] for 30 days. memantine 5 2022- No [id number] 5mg Take 1 Univers mg tablet -12 01- tablet by ity of 00:: 04:59 mouth in [place] 00 :00 [facility] for 30 days. carvediloL 2022- No [id number] 3.125mg Take 1 Univers 3.125 mg -12 01- tablet by ity o f tablet 00:: 04:59 mouth in [place] 00 :[address] [facility] and 1 tablet in the evening. Take with meals. Do all this for 30 days. atorvastati 2022- No [id number] 40mg Take 1 Univers n 40 mg 3-12 01- tablet by ity of tablet 00:: 04:59 mouth at [place] 00 :00 [facility] for 30 Branch days. carvediloL 2022- No [id number] 3.125mg Take 1 Univers 3.125 mg 3-12 01-26 tablet by ity o f tablet 00:00: 04:59 mouth in [place] 00 :[address] [facility] and 1 tablet in the evening. Take with meals. Do all this for 30 days. atorvastati 2022-2022- No [id number] 40mg Take 1 Univers n 40 mg 12-12- tablet by ity of tablet 00:00: 04:59 mouth at [place] 00 :00 [facility] for 30 Branch days. carvediloL 2022-2022- No [id number] 3.125mg Take 1 Univers 3.125 mg 12-12- tablet by ity o f tablet 00:00: 04:59 mouth in [place] 00 :00 [facility] and 1 tablet in the evening. Take with meals. Do all this for 30 days. atorvastati 2022-2022- No [id number] 40mg Take 1 Univers n 40 mg 12-12 tablet by ity of tablet 00:00: 04:59 mouth at [place] 00 :00 [facility] for 30 Branch days. donepeziL 5 2022-2022- No [id number] 5mg Take 1 Univers mg tablet 12-12 tablet by ity of 00:00: 00:00 mouth in [place] 00 :00 [facility] for 30 days. memantine 5 2022-0 2022- No [id number] 5mg Take 1 Univers mg tablet 12-12- tablet by ity of 00:00: 00:00 mouth in [place] 00 :00 [facility] for 30 days. donepeziL 5 2022-0 3- No [id number] 5mg Take 1 Univers mg tablet 12-12 tablet by ity of 00:00: 00:00 mouth in [place] 00 :00 [facility] for 30 days. memantine 5 2022-2022- No [id number] 5mg Take 1 Univers mg tablet 12-12 tablet by ity of 00:00: 00:00 mouth in [place] 00 :00 [facility] for 30 days. levalbutero Yes 1.25mg 1.25 [...] [place] mg 00 First dose Medical on [facility] Branch 12/11/22 at 0900, Until Discontinu ed, Routine nicotine 0 Yes 1{patch 1 Patch, Un igor (NICODERM) 25 } Topical, ity o f 21 mg/24 hr 13:45: Administer [place] patch 1 00 over 24 Medical Patch Hours, Branch Q24H, First dose on [facility] 12/11/22 at 0845, Until Discontinu ed, Routine ipratropium 0 Yes .5mg 0.5 mg, Uni vers (ATROVENT) 25 Inhalation ity of 0.02 % 13:00: , QID, [place] nebulizer 00 First dose Medi lucho solution on [facility] Branch 0.5 mg 12/11/22 at 0800, Until Discontinu ed carvediloL 0 Yes 3.125mg 3.125 mg, Univers (COREG) 25 Oral, BID ity of tablet 13:00: MEALS, [place] 3.125 mg 00 First dose Medic al on [facility] Branch 12/11/22 at 0800, Until Discontinu ed, Routine busPIRone Yes 10mg 10 mg, Univer s (BUSPAR) 3-25 Oral, BID, ity o f tablet 10 13:00: First dose [place] mg 00 on [facility] Medical 12/11/22 at Branch 0800, Until Discontinu ed, Routine methylpredn 2022- No 125mg 125 mg, U nivers isolone sod 12-11-25 Intravenou i ty of succ 05:00: 12:35 s, Q6H, [place] (SOLU-MEDRO 00 :32 First dose Me dical L) on [facility] Branch injection 12/11/22 at 125 mg [...] ity of 0.02 % 23:48: , Q4HPRN, [place] nebulizer 58 Starting Medica l solution on [...] by ity of tablet 12:44: mouth in [place] [address] the Medical morning Branch and 1 tablet in the evening. Take with meals. busPIRone 3-0 Yes 10mg Take 1 Univer s 10 mg 3-18 tablet by ity of tablet 12:44: mouth in [place] [address] the Medical morning Branch and 1 tablet in the evening. busPIRone 3-0 Yes 30mg Take 1 Univer s 30 mg 3-18 tablet by ity of tablet 12:44: mouth in [place] 03 the Medical morning Branch and 1 tablet in the evening. KCL 20 mEq 2022-0 Yes Take by Univ ers tablet 3-18 mouth 2 ity of 12:44: (two) [place] 03 times Medical daily. Branch benazepriL 3-0 Yes 10mg Take 1 Unive rs 10 mg 3-18 tablet by ity of tablet 12:44: mouth in [place] 03 the Medical morning. Branch rivaroxaban 3-0 Yes 15mg Take 1 Univ ers (XARELTO) 3-18 tablet by ity o f 15 mg 12:44: mouth in [place] tablet 03 the Medical morning. Branch carvediloL 2023-0 Yes 3.125mg Take 1 Un igor 3.125 mg 3-18 tablet by ity of tablet 12:44: mouth in [place] [address] the Medical morning Branch and 1 tablet in the evening. Take with meals. busPIRone 2023-0 Yes 10mg Take 1 Univer s 10 mg 3-18 tablet by ity of tablet 12:44: mouth in [place] 03 the Medical morning Branch and 1 tablet in the evening. busPIRone 2023-0 Yes 30mg Take 1 Univer s 30 mg 3-18 tablet by ity of tablet 12:44: mouth in [place] [address] the Medical morning Branch and 1 tablet in the evening. KCL 20 mEq 2023-0 Yes Take by Univ ers tablet 3-18 mouth 2 ity of 12:44: (two) [place] [address] times Medical daily. Branch benazepriL 2023-0 Yes 10mg Take 1 Unive rs 10 mg 3-18 tablet by ity of tablet 12:44: mouth in [place] [address] the Medical morning. Branch rivaroxaban 2023-0 Yes 15mg Take 1 Univ ers (XARELTO) 3-18 tablet by ity o f 15 mg 12:44: mouth in [place] [facility] 03 the Medical morning. Branch carvediloL 2023-0 Yes 3.125mg Take 1 Un igor 3.125 mg 3-18 tablet by ity of tablet 12:44: mouth in [place] [address] the Medical morning Branch and 1 tablet in the evening. Take with meals. busPIRone 2023-0 Yes 10mg Take 1 Univer s 10 mg 3-18 tablet by ity of tablet 12:44: mouth in [place] [address] the Medical morning Branch and 1 tablet in the evening. busPIRone 2023-0 Yes 30mg Take 1 Univer s 30 mg 3-18 tablet by ity of tablet 12:44: mouth in [place] [address] the Medical morning Branch and 1 tablet in the evening. KCL 20 mEq 2023-0 Yes Take by Univ ers tablet 3-18 mouth 2 ity of 12:44: (two) [place] 03 times Medical daily. Branch benazepriL 2023-0 Yes 10mg Take 1 Unive rs 10 mg 3-18 tablet by ity of tablet 12:44: mouth in [place] 03 the Medical morning. Branch rivaroxaban 2023-0 [...] by ity of tablet 12:44: mouth in [place] 03 the Medical morning Branch and 1 [...] 03 the Medical morning. Branch albuterol Yes [id number] 2{puff} Inhale 2 Univers 90 3-18 Puffs ity of mcg/actuati 00:00: every 6 [place] on inhaler 00 (six) Medical hours as Branch needed for Wheezing or Shortness of Breath. albuterol 0 Yes [id number] 2{puff} Inhale 2 Univers 90 3-18 Puffs ity of mcg/actuati 00:00: every 6 [place] on inhaler 00 (six) Medical hours as Branch needed for Wheezing or Shortness of Breath. albuterol 2022-0 Yes [id number] 2{puff} Inhale 2 Univers 90 3-18 Puffs ity of mcg/actuati 00:00: every 6 [place] on inhaler 00 (six) Medical hours as Branch needed for Wheezing or Shortness of Breath. albuterol 2022-0 Yes [id number] 2{puff} Inhale 2 Univers 90 3-18 Puffs ity of mcg/actuati 00:00: every 6 [place] on inhaler 00 (six) Medical hours as Branch needed for Wheezing or Shortness of Breath. albuterol Yes [id number] 2{puff} Inhale 2 Univers 90 3-18 Puffs ity of mcg/actuati 00:00: every 6 [place] on inhaler 00 (six) Medical hours as Branch needed for Wheezing or Shortness of Breath. albuterol Yes [id number] 2{puff} Inhale 2 Univers 90 3-18 Puffs ity of mcg/actuati 00:00: every 6 [place] on inhaler 00 (six) Medical hours as Branch needed for Wheezing or Shortness of Breath. albuterol Yes [id number] 2{puff} Inhale 2 Univers 90 3-18 Puffs ity of mcg/actuati 00:00: every 6 [place] on inhaler 00 (six) Medical hours as Branch needed for Wheezing or Shortness of Breath. albuterol Yes [id number] 2{puff} Inhale 2 Univers 90 3-18 Puffs ity of mcg/actuati 00:00: every 6 [place] on inhaler 00 (six) Medical hours as Branch needed for Wheezing or Shortness of Breath. albuterol Yes [id number] 2{puff} Inhale 2 Univers 90 3-18 Puffs ity of mcg/actuati 00:00: every 6 [place] on inhaler 00 (six) Medical hours as Branch needed for Wheezing or Shortness of Breath. albuterol Yes [id number] 2{puff} Inhale 2 Univers 90 3-18 Puffs ity of mcg/actuati 00:00: every 6 [place] on inhaler 00 (six) Medical hours as Branch needed for Wheezing or Shortness of Breath. albuterol Yes [id number] 2{puff} Inhale 2 Univers 90 3-18 Puffs ity of mcg/actuati 00:00: every 6 [place] on inhaler 00 (six) Medical hours as Branch needed for Wheezing or Shortness of Breath. albuterol Yes [id number] 2{puff} Inhale 2 Univers 90 3-18 Puffs ity of mcg/actuati 00:00: every 6 [place] on inhaler 00 (six) Medical hours as Branch needed for Wheezing or Shortness of Breath. albuterol No [id number] 2{puff} Inhale 2 Univers 90 3-18 05-03 Puffs ity of mcg/actuati 00:00: 00:00 every 6 [place] on inhaler 00 :00 (six) Medical hours as Branch needed for Wheezing or Shortness of Breath. tiotropium No [id number] 18ug Inhale 1 Univers 18 mcg 3-18 04-18 capsule in ity of inhalation 00:00: 04:59 the [place] 00 :00 morning Medical for 30 Branch days. tiotropium No [id number] 18ug Inhale 1 Univers 18 mcg 3-18 04-18 capsule in ity of inhalation 00:00: 04:59 the [place] 00 :00 morning Medical for 30 Branch days. tiotropium No [id number] 18ug Inhale 1 Univers 18 mcg 3-18 04-18 capsule in ity of inhalation 00:00: 04:59 the [place] 00 :00 morning Medical for 30 Branch days. tiotropium 2022- No [id number] 18ug Inhale 1 Univers 18 mcg 3-18 04-18 capsule in ity of inhalation 00:00: 04:59 the [place] 00 :00 morning Medical for 30 Branch days. tiotropium 2022- No [id number] 18ug Inhale 1 Univers 18 mcg 3-18 04-18 capsule in ity of inhalation 00:00: 04:59 the [place] 00 :00 morning Medical for 30 Branch days. tiotropium No [id number] 18ug Inhale 1 Univers 18 mcg 3-18 04-18 capsule in ity of inhalation 00:00: 04:59 the [place] 00 :00 morning Medical for 30 Branch days. tiotropium No [id number] 18ug Inhale 1 Univers 18 mcg 3-18 04-18 capsule in ity of inhalation 00:00: 04:59 the [place] 00 :00 morning Medical for 30 Branch days. tiotropium 2022- No [id number] 18ug Inhale 1 Univers 18 mcg 3-18 -18 capsule in ity of inhalation 00:00: 04:59 the [place] 00 :00 morning Medical for 30 Branch days. doxycycline 2022-2022- No [id number] 100mg Take 1 Univers hyclate 100 3-18 03-24 capsule by i ty of mg capsule 00:00: 04:59 mouth [place] 00 :00 every 12 Medical (twelve) Branch hours for 5 days. predniSONE 2022-0 2022- No [id number] 40mg Take 2 Univers 20 mg 3-18 03-24 tablets by ity of tablet 00:00: 04:59 mouth in [place] 00 :00 the Medical morning Branch for 5 days. doxycycline 2022-2022- No [id number] 100mg Take 1 Univers hyclate 100 3-18 03-24 capsule by i ty of mg capsule 00:00: 04:59 mouth [place] 00 :00 every 12 Medical (twelve) Branch hours for 5 days. predniSONE 2022-0 2022- No [id number] 40mg Take 2 Univers 20 mg 3-18 [...] mg 00 :59 First dose Medical on [facility] Branch 12/02/22 at 1700, Until Discontinu ed, Routine methylPREDN Yes 40mg 40 mg, Univ ers ISolone sod -16 Intravenou it y of succ 19:00: s, Q8H, [place] (SOLU-MEDRO 00 First dose Me dical L (PF)) on [facility] Branch injection 12/02/22 at 40 mg [...] it y of nebulizer 13:00: , Q4H, [place] solution 00 First dose Medic al 1.25 mg on [place] [facility] 12/02/22 at 0800, Until Discontinu ed, Routine ipratropium 2022-0 Yes .5mg 0.5 mg, Uni vers (ATROVENT) 12-02 Inhalation ity of 0.02 % 13:00: , Q4H, [place] nebulizer 00 First dose Medi lucho solution [...] IV Push, ity of (PF)) 11:30: Q6HPRN, [place] injection 4 03 Starting Medi lucho mg [...] 12-02 Oral, ity of (TYLENOL) 11:30: Q6HPRN, [place] tablet 650 03 Starting Medic al mg on [place] [facility] 12/02/22 at 0630, Until Discontinu ed, Routine, Pain (scale 1-3) methylpredn 2022- No 125mg 125 mg, U nivers isolone sod 12-02 Intravenou i ty of succ 06:15: 05:27 s, ONCE, 1 [place] (SOLU-MEDRO 00 :00 dose, On Medi lucho [...] mg 0530, MICHAEL Nebulizer & 0 Yes [id number] Use as Univers Compressor 3-15 directed ity o f For Neb 00:00: Medical Branch albuterol 2022-0 Yes [id number] 2{puff} Inhale 2 Univers 90 3-15 Puffs ity of mcg/actuati 00:00: every 4 [place] on inhaler 00 (four) Medical hours as Branch needed for Wheezing or Shortness of Breath. Nebulizer & 0 Yes [id number] Use as Univers Compressor 3-15 directed ity o f For Neb 00:00: Medical Branch albuterol 2022-0 Yes [id number] 2{puff} Inhale 2 Univers 90 3-15 Puffs ity of mcg/actuati 00:00: every 4 [place] on inhaler 00 (four) Medical hours as Branch needed for Wheezing or Shortness of Breath. Nebulizer & 2022-0 Yes [id number] Use as Univers Compressor 3-15 directed ity o f For Neb 00:00: Medical Branch albuterol 0 Yes [id number] 2{puff} Inhale 2 Univers 90 3-15 Puffs ity of mcg/actuati 00:00: every 4 [place] on inhaler 00 (four) Medical hours as Branch needed for Wheezing or Shortness of Breath. Nebulizer & 2022-0 Yes [id number] Use as Univers Compressor 3-15 directed ity o f For Neb 00:00: Medical Branch Nebulizer & 2022-0 Yes [id number] Use as [facility] Compressor 3-15 directed ity o f For Neb 00:00: Medical Branch Nebulizer & 2022-0 Yes [id number] Use as [facility] Compressor 3-15 directed ity o f For Neb 00:00: Medical Branch Nebulizer & 2022-0 Yes [id number] Use as [facility] Compressor 3-15 directed ity o f For Neb 00:00: Medical Branch Nebulizer & 2022-0 Yes [id number] Use as Univers Compressor 3-15 directed ity o f For Neb 00:00: Medical Branch Nebulizer & 2022-0 Yes [id number] Use as Univers Compressor 3-15 directed ity o f For Neb 00:00: Medical Branch Nebulizer & 2022-0 Yes [id number] Use as [facility] Compressor 3-15 directed ity o f For Neb 00:00: Medical Branch Nebulizer & 2022-0 Yes [id number] Use as Univers Compressor 3-15 directed ity o f For Neb 00:00: Medical Branch Nebulizer & 2022-0 Yes [id number] Use as Univers Compressor 3-15 directed ity o f For Neb 00:00: Medical Branch Nebulizer & 2022-0 Yes [id number] Use as Univers Compressor 3-15 directed ity o f For Neb 00:00: Medical Branch Nebulizer & 2022-0 Yes [id number] Use as Univers Compressor 3-15 directed ity o f For Neb 00:00: Medical Branch Nebulizer & 3-0 Yes [id number] Use as Univers Compressor 3-15 directed ity o f For Neb 00:00: Medical Branch Nebulizer & 2022-0 Yes [id number] Use as Univers Compressor 3-15 directed ity o f For Neb 00:00: Medical Branch Nebulizer & 3-0 Yes [id number] Use as Univers Compressor 3-15 directed ity o f For Neb 00:00: Medical Branch Nebulizer & 3-0 Yes [id number] Use as Univers Compressor 3-15 directed ity o f For Neb 00:00: Medical Branch Nebulizer & 2022-0 Yes [id number] Use as Univers Compressor 3-15 directed ity o f For Neb 00:00: Medical Branch Nebulizer & 2022-0 Yes [id number] Use as Univers Compressor 3-15 directed ity o f For Neb 00:00: Medical Branch Nebulizer & 2022-0 Yes [id number] Use as Univers Compressor 3-15 directed ity o f For Neb 00:00: Medical Branch Nebulizer & 2022-0 Yes [id number] Use as Univers Compressor 3-15 directed ity o f For Neb 00:00: Medical Branch Nebulizer & 2022-0 Yes [id number] Use as Univers Compressor 3-15 directed ity o f For Neb 00:00: Medical Branch Nebulizer & 2022-0 Yes [id number] Use as Univers Compressor 3-15 directed ity o f For Neb 00:00: Medical Branch Nebulizer & 3-0 Yes [id number] Use as Univers Compressor 3-15 directed ity o f For Neb 00:00: Medical Branch Nebulizer & 2022-0 Yes [id number] Use as Univers Compressor 3-15 directed ity o f For Neb 00:00: Medical Branch Nebulizer & 3-0 Yes [id number] Use as Univers Compressor 3-15 directed ity o f For Neb 00:00: Medical Branch Nebulizer & 3-0 Yes [id number] Use as Univers Compressor 3-15 directed ity o f For Neb 00:00: Medical Branch Nebulizer & 2022-0 Yes [id number] Use as Univers Compressor 3-15 directed ity o f For Neb 00:00: Medical Branch Nebulizer & 2022-0 Yes [id number] Use as Univers Compressor 3-15 directed ity o f For Neb 00:00: Medical Branch Nebulizer & 2022-0 Yes [id number] Use as Univers Compressor 3-15 directed ity o f For Neb 00:00: Medical Branch Nebulizer & 2022-0 Yes [id number] Use as Univers Compressor 3-15 directed ity o f For Neb 00:00: Medical Branch Nebulizer & 2022-0 Yes [id number] Use as Univers Compressor 3-15 directed ity o f For Neb 00:00: Medical Branch Nebulizer & 2022-0 Yes [id number] Use as Univers Compressor 3-15 directed ity o f For Neb 00:00: Medical Branch Nebulizer & 2022-0 Yes [id number] Use as Univers Compressor 3-15 directed ity o f For Neb 00:00: Medical Branch Nebulizer & 2022-0 Yes [id number] Use as Univers Compressor 3-15 directed ity o f For Neb 00:00: Medical Branch Nebulizer & 2022-0 Yes [id number] Use as Univers Compressor 3-15 directed ity o f For Neb 00:00: Medical Branch Nebulizer & 2022-0 Yes [id number] Use as Univers Compressor 3-15 directed ity o f For Neb 00:00: Medical Branch Nebulizer & 2022-0 Yes [id number] Use as Univers Compressor 3-15 directed ity o f For Neb 00:00: Medical Branch Nebulizer & 2022-0 Yes [id number] Use as Univers Compressor 3-15 directed ity o f For Neb 00:00: Medical Branch Nebulizer & 2022-0 Yes [id number] Use as Univers Compressor 3-15 directed ity o f For Neb 00:00: Medical Branch albuterol 2022-0 Yes [id number] 2{puff} Inhale 2 Univers 90 3-15 Puffs ity of mcg/actuati 00:00: every 4 [place] on inhaler 00 (four) Medical hours as Branch needed for Wheezing or Shortness of Breath. predniSONE 2022-0 Yes [id number] 50mg Take 1 Univers 50 mg 3-15 tablet by ity of tablet 00:00: mouth in [place] 00 the Medical morning. Branch Nebulizer & 2022-0 Yes [id number] Use as Univers Compressor 3-15 directed ity o f For Neb 00:00: [place] Kami 00 Medical Branch albuterol 2022-0 Yes [id number] 2{puff} Inhale 2 Univers 90 3-15 Puffs ity of mcg/actuati 00:00: every 4 [place] on inhaler 00 (four) Medical hours as Branch needed for Wheezing or Shortness of Breath. albuterol 2022-0 2022- No [id number] 2{puff} Inhale 2 Univers 90 3-15 03-26 Puffs ity of mcg/actuati 00:00: 00:00 every 4 [place] on inhaler 00 :00 (four) Medical hours as Branch needed for Wheezing or Shortness of Breath. predniSONE 2022-0 2022- No [id number] 50mg Take 1 Univers 50 mg 3-15 03-18 tablet by ity of tablet 00:00: 00:00 mouth in [place] 00 :00 the Medical morning. Branch omeprazole 2022-2022- No 40mg Take 40 mg Univers 40 mg -12 -12 by mouth ity of capsule 14:11: 00:00 daily. [place] 21 :00 Medical Branch carvediloL 2022-0 2022- No 25mg Take 25 mg Univers 25 mg -08 21-12 by mouth 2 ity of tablet 14:11: 00:00 (two) [place] 21 :00 times Medical daily with Branch meals. busPIRone 2022-0 2022- No 30mg Take 30 mg U nivers 30 mg -08 21-12 by mouth 2 ity of tablet 14:11: 00:00 (two) [place] 21 :00 times Medical daily. Branch benazepriL 2022-0 2022- No 10mg Take 10 mg Univers 10 mg -08 21-12 by mouth ity of tablet 14:11: 00:00 daily. [place] 21 :00 Medical Branch hydroCHLORO 2022-0 202- No 25mg Take 25 mg Univers thiazide 25 11-28 03-12 by mouth ity of mg tablet 14:11: 00:00 daily. [place] : [facility] Branch levalbutero 2022-0 Yes .63mg 0.63 mg, U nivers l (XOPENEX) 3-12 Inhalation it y of nebulizer 13:00: , TID, [place] solution 00 First dose Medic al 0.63 mg (after Branch last modificati on) on [place] 11/28/22 at 0800, Until Discontinu ed, Routine ipratropium 2022-0 Yes .5mg 0.5 mg, Uni vers (ATROVENT) 3- Inhalation ity of 0.02 % 20:00: , TID, [place] nebulizer 00 First dose Medi lucho solution (after Branch 0.5 mg last modificati on) on [facility] 11/27/22 at 1400, Until Discontinu ed, Routine nicotine 2022-0 Yes 1{patch 1 Patch, Un igor (NICODERM) 3 } Topical, ity o f 21 mg/24 hr 17:30: Administer [place] patch 1 00 over 24 Medical Patch Hours, Branch Q24H, First dose on [facility] 11/27/22 at 1130, Until Discontinu ed, Routine busPIRone 2022-0 Yes 10mg 10 mg, Univer s (BUSPAR) 3-11 Oral, TID, ity o f tablet 10 16:15: First dose [place] mg 00 on [facility] Medical 11/27/22 at Branch 1015, Until Discontinu ed, Routine aspirin 2022-0 Yes 81mg 81 mg, Univers chewable 11-27 Oral, ity of tablet 81 16:15: DAILY, [place] mg 00 First dose Medical on [facility] Branch 11/27/22 at 1015, Until Discontinu ed, Routine foLIC acid 2022-0 Yes 1mg 1 mg, Univer s (FOLATE) 3-11 Oral, ity of tablet 1 mg 15:00: DAILY, [place] 00 First dose Medical on [facility] Branch 11/27/22 at 0900, Until Discontinu ed, Routine rivaroxaban 2022-0 Yes 20mg 20 mg, Univ ers (XARELTO) 3-11 Oral, ity of tablet 20 15:00: DAILY, [place] mg 00 First dose Medical on [facility] Branch 11/27/22 at 0900, Until Discontinu ed, Routine omeprazole 0 Yes 40mg 40 mg, Unive rs (PRILOSEC) 11-27 Oral, ity of capsule 40 15:00: DAILY, [place] mg 00 First dose Medical on [facility] Branch 11/27/22 at 0900, Until Discontinu ed predniSONE 2022- No 40mg 40 mg, Univ ers (DELTASONE) 11-2716 Oral, ity of tablet 40 15:00: 13:59 DAILY, 5 [place] as mg 00 :00 doses, Medical First dose Branch on [facility] 11/27/22 at 0900, Last dose on Tue12/01/22 at 0900, Routine carvediloL Yes 25mg 25 mg, Unive rs (COREG) 11-27 Oral, BID ity of tablet 25 14:00: MEALS, [place] mg 00 First dose Medical on [facility] 11/27/22 at 0800, Until Discontinu ed, Routine levalbutero 2022- No .31mg 0.31 mg, Univers l (XOPENEX) 11-2712 Inhalation i ty of nebulizer 14:00: 12:33 , TID, [place] solution 00 :58 First dose Medic al 0.31 mg on [facility] Branch 11/27/22 at 0800, Until Discontinu ed, Routine ipratropium 2022- No .5mg 0.5 mg, Un igor (ATROVENT) 11-27 Inhalation it y of 0.02 % 14:00: 18:48 , QID, [place] nebulizer 00 :56 First dose Medi lucho solution on [facility] Branch 0.5 mg 11/27/22 at 0800, Until Discontinu ed, Routine thiamine Yes 100mg 100 mg, Unive rs (VITAMIN 11-27 Oral, ity of B1) tablet 08:30: DAILY, [place] 100 mg 00 First dose Medical (after Branch last modificati on) on [facility] 11/27/22 at 0230, Until Discontinu ed, [...] at 2000, Routine thiamine 2022-0 2022- No [id number] 100mg Take 1 Univers 100 mg 2-24 -27 tablet by ity of tablet 00:00: 04:59 mouth in [place] 00 :[address] [facility] for 30 days. thiamine 2022-0 202- No [id number] 100mg Take 1 Univers 100 mg 2-24 -27 tablet by ity of tablet 00:00: 04:59 mouth in [place] 00 :00 [facility] for 30 days. thiamine 202-0 202- No [id number] 100mg Take 1 Univers 100 mg 2-24 03-27 tablet by ity of tablet 00:00: 04:59 mouth in [place] 00 :00 [facility] for 30 days. thiamine 2023-0 202- No [id number] 100mg Take 1 Univers 100 mg 2-24 03-27 tablet by ity of tablet 00:00: 04:59 mouth in [place] 00 :00 [facility] for 30 days. thiamine 2023-0 2023- No [id number] 100mg Take 1 Univers 100 mg 2-24 03-27 tablet by ity of tablet 00:00: 04:59 mouth in [place] 00 :00 the Medical [facility] Branch for 30 days. thiamine 2023-0 2023- No [id number] 100mg Take 1 Univers 100 mg 2-24 -12 tablet by ity of tablet 00:00: 00:00 mouth in [place] 00 :00 the [facility] Branch for 30 days. thiamine 2023-0 Yes 100mg 100 mg, Unive rs (VITAMIN 2-23 Oral, ity of B1) tablet 15:00: DAILY, [place] 100 mg 00 First dose Medical on [facility] Branch 11/11/22 at 0900, Until Discontinu ed, Routine omeprazole 2022-0 Yes 40mg Take 40 mg U nivers 40 mg 2-23 by mouth ity of capsule 13:41: daily. [address] carvediloL 3-0 Yes 25mg Take 25 mg U nivers 25 mg 2-23 by mouth 2 ity of tablet 13:41: (two) [place] [id number] times Medical daily with Branch meals. busPIRone 3-0 Yes 30mg Take 30 mg [facility] 30 mg 2-23 by mouth 2 ity of tablet 13:41: (two) [place] [address] times Medical daily. Branch benazepriL 3-0 Yes 10mg Take 10 mg U nivers 10 mg 2-23 by mouth ity of tablet 13:41: daily. [address] hydroCHLORO 3-0 Yes 25mg Take 25 mg Univers thiazide 25 2-23 by mouth ity of mg tablet 13:41: daily. [address] omeprazole 3-0 Yes 40mg Take 40 mg U nivers 40 mg 2-23 by mouth ity of capsule 13:41: daily. [address] carvediloL 3-0 Yes 25mg Take 25 mg U nivers 25 mg 2-23 by mouth 2 ity of tablet 13:41: (two) [place] [id number] times Medical daily with Branch meals. busPIRone 2023-0 Yes 30mg Take 30 mg [facility] 30 mg 2-23 by mouth 2 ity of tablet 13:41: (two) [place] [address] times Medical daily. Branch benazepriL 2023-0 Yes 10mg Take 10 mg U nivers 10 mg 2-23 by mouth ity of tablet 13:41: daily. [address] hydroCHLORO 2023-0 Yes 25mg Take 25 mg Univers thiazide 25 2-23 by mouth ity of mg tablet 13:41: daily. [address] omeprazole 2023-0 Yes 40mg Take 40 mg U nivers 40 mg 2-23 by mouth ity of capsule 13:41: daily. [address] carvediloL 2023-0 Yes 25mg Take 25 mg U nivers 25 mg 2-23 by mouth 2 ity of tablet 13:41: (two) [place] [id number] times Medical daily with Branch meals. busPIRone 2023-0 Yes 30mg Take 30 mg [facility] 30 mg 2-23 by mouth 2 ity of tablet 13:41: (two) [place] [address] times Medical daily. Branch benazepriL 3-0 Yes 10mg Take 10 mg U nivers 10 mg 2-23 by mouth ity of tablet 13:41: daily. [address] hydroCHLORO 3-0 Yes 25mg Take 25 mg Univers thiazide 25 2-23 by mouth ity of mg tablet 13:41: daily. [address] omeprazole 3-0 Yes 40mg Take 40 mg U nivers 40 mg 2-23 by mouth ity of capsule 13:41: daily. [address] carvediloL 3-0 Yes 25mg Take 25 mg U nivers 25 mg 2-23 by mouth 2 ity of tablet 13:41: (two) [address] Medical daily with Branch meals. busPIRone 2023-0 Yes 30mg Take 30 mg Un [facility] 30 mg 2-23 by mouth 2 ity of tablet 13:41: (two) [place] [address] times Medical daily. Branch benazepriL 3-0 Yes 10mg Take 10 mg U nivers 10 mg 2-23 by mouth ity of tablet 13:41: daily. [address] hydroCHLORO 2023-0 Yes 25mg Take 25 mg Univers thiazide 25 2-23 by mouth ity of mg tablet 13:41: daily. [address] omeprazole 2023-0 Yes 40mg Take 40 mg U nivers 40 mg 2-23 by mouth ity of capsule 13:41: daily. [address] carvediloL 2023-0 Yes 25mg Take 25 mg U nivers 25 mg 2-23 by mouth 2 ity of tablet 13:41: (two) [place] [id number] times Medical daily with Branch meals. busPIRone 2022-0 Yes 30mg Take 30 mg [facility] 30 mg 2-23 by mouth 2 ity of tablet 13:41: (two) [place] [address] times Medical daily. Branch benazepriL 2022-0 Yes 10mg Take 10 mg U nivers 10 mg 2-23 by mouth ity of tablet 13:41: daily. [address] hydroCHLORO 2022-0 Yes 25mg Take 25 mg Univers thiazide 25 2-23 by mouth ity of mg tablet 13:41: daily. [address] foLIC acid 0 2022- No 1mg 1 mg, Unive rs (FOLATE) 2-11 11- Oral, ity of tablet 1 mg 00:15: 00:26 ONCE, 1 [place] 00 :00 dose, On Medical Wed Branch 11/10/22 at 1815, Routine benzocaine- 2022-0 Yes [id number] 1{lozen Take 1 Univers menthoL 2-23 ge} Lozenge by ity of lozenge 00:00: mouth [place] [address] every 4 Medical (four) Branch hours as needed for Sore throat. budesonide- 2022-0 Yes [id number] 2{puff} Inhale 2 Univers formoteroL 2-23 Puffs in ity o f 80-4.5 00:00: the [place] mcg/actuati 00 morning Medic al on inhaler and 2 Branch Puffs in the evening. benzocaine- 2022-0 Yes [id number] 1{lozen Take 1 Univers menthoL 2-23 ge} Lozenge by ity of lozenge 00:00: mouth [place] 00 every 4 Medical (four) Branch hours as needed for Sore throat. budesonide- 2022-0 Yes [id number] 2{puff} Inhale 2 Univers formoteroL 2-23 Puffs in ity o f 80-4.5 00:00: the [place] mcg/actuati 00 morning Medic al on inhaler and 2 Branch Puffs in the evening. benzocaine- 2022-0 Yes [id number] 1{lozen Take 1 Univers menthoL 2-23 ge} Lozenge by ity of lozenge 00:00: mouth [place] [address] every 4 Medical (four) Branch hours as needed for Sore throat. budesonide- 2022-0 Yes [id number] 2{puff} Inhale 2 Univers formoteroL 2-23 Puffs in ity of 80-4.5 00:00: the [place] mcg/actuati 00 morning Medic al on inhaler and 2 Branch Puffs in the evening. benzocaine- 2022-0 Yes [id number] 1{lozen Take 1 Univers menthoL 2-23 ge} Lozenge by ity of lozenge 00:00: mouth [place] 00 every 4 Medical (four) Branch hours as needed for Sore throat. budesonide- 2022-0 Yes [id number] 2{puff} Inhale 2 Univers formoteroL 2-23 Puffs in ity o f 80-4.5 00:00: the [place] mcg/actuati 00 morning Medic al on inhaler and 2 Branch Puffs in the evening. benzocaine- 2022-0 Yes [id number] 1{lozen Take 1 Univers menthoL 2-23 ge} Lozenge by ity of lozenge 00:00: mouth [place] 00 every 4 Medical (four) Branch hours as needed for Sore throat. budesonide- 2022-0 Yes [id number] 2{puff} Inhale 2 Univers formoteroL 2-23 Puffs in ity o f 80-4.5 00:00: the [place] mcg/actuati 00 morning Medic al on inhaler and 2 Branch Puffs in the evening. benzocaine- 0 2022- No [id number] 1{lozen Take 1 Univers menthoL 2-23 03-12 ge} Lozenge by ity o f lozenge 00:00: 00:00 mouth [place] 00 :00 every 4 Medical (four) Branch hours as needed for Sore throat. budesonide- 2022-0 2022- No [id number] 2{puff} Inhale 2 Univers formoteroL 2-23 03-12 Puffs in ity of 80-4.5 00:00: 00:00 the [place] mcg/actuati 00 :00 morning Medic al on inhaler and 2 Branch Puffs in the evening. sodium 2022-0 2022- No [id number] 1g Take 1 Uni vers chloride 1 2-23 03-06 tablet by ity of gram tablet 00:00: 05:59 mouth in [place] 00 :00 the Medical morning Branch and 1 tablet at noon and 1 tablet in the evening. Take with meals. Do all this for 10 days. sodium 2023-0 202- No [id number] 1g Take 1 Uni vers chloride 1 11-11-06 tablet by ity of gram tablet 00:00: 05:59 mouth in [place] 00 :00 the [facility] morning Branch and 1 tablet at noon and 1 tablet in the evening. Take with meals. Do all this for 10 days. sodium 2023-0 2022- No [id number] 1g Take 1 Uni vers chloride 1 11-11-06 tablet by ity of gram tablet 00:00: 05:59 mouth in [place] 00 :00 the [facility] morning [facility] and 1 tablet at noon and 1 tablet in the evening. Take with meals. Do all this for 10 days. sodium 2022-0 2022- No [id number] 1g Take 1 Uni vers chloride 1 11-11- tablet by ity of gram tablet 00:00: 05:59 mouth in [place] 00 :00 the [facility] morning [facility] and 1 tablet at noon and 1 tablet in the evening. Take with meals. Do all this for 10 days. levoFLOXaci 3-0 2022- No [id number] 750mg Take 1 Univers n 750 mg 11-11- tablet by ity o f tablet 00:00: 05:59 mouth [place] 00 :00 every 24 Medical ([facility]) hours for 5 days. levoFLOXaci 2023-0 2022- No [id number] 750mg Take 1 Univers n 750 mg 11-11- tablet by ity o f tablet 00:00: 05:59 mouth [place] 00 :00 every 24 Medical ([facility] ur) hours for 5 days. predniSONE 2023-0 2023- No [id number] 40mg Take 2 Univers 20 mg 2-23 -27 tablets by ity of tablet 00:00: 05:59 mouth in [place] 00 :[address] [facility] for 3 days. predniSONE 2023-0 2023- No [id number] 40mg Take 2 Univers 20 mg 2-23 -27 tablets by ity of tablet 00:00: 05:59 mouth in [place] 00 :00 the Medical morning Branch for 3 days. sodium 2022-0 Yes 1g 1 g, Oral, Unive rs chloride 2-22 TID MEALS, ity o f tablet 1 g 23:15: First dose [place] 00 on Tue Medical 11/10/22 at Branch 1715, Until Discontinu ed, Routine benzocaine- 2022-0 Yes 1{lozen 1 Lozenge, Univers menthoL 2- ge} Oral, ity of (CEPACOL 20:49: Q4HPRN, [place] SORE THROAT 25 Starting Medi lucho (JACINTO-MEN)) [...] ty of succ 15:00: 14:59 s, DAILY, [place] (SOLU-MEDRO 00 :00 4 doses, Medi lucho [...] mg, IV Univers n in D5W 11-10 03-01 Piggyback, ity of (LEVAQUIN) 09:00: 08:59 at [...] Yes 30mg 30 mg, Univer s (BUSPAR) 2-22 Oral, BID, ity o f tablet 30 02:00: First dose [place] mg 00 on [facility] 11/09/22 at Branch 2000, Until Discontinu ed, Routine carvediloL 2022-0 Yes 25mg 25 mg, Unive rs (COREG) 2- Oral, BID ity of tablet 25 23:00: MEALS, [place] mg 00 First dose Medical on [facility] 11/09/22 at 1700, Until Discontinu ed, Routine ipratropium 2022-0 Yes .5mg 0.5 mg, Uni vers (ATROVENT) 2- Inhalation ity of 0.02 % 22:00: , Q4H, [place] nebulizer 00 First dose Medi lucho solution on [facility] 0.5 mg 11/09/22 at 1600, Until Discontinu ed, Routine albuterol 2022-0 Yes 2.5mg 2.5 mg, Univ ers (PROVENTIL) 2- Inhalation it y of 2.5 mg /3 22:00: , Q4H, [place] mL (0.083 00 First dose Medi lucho %) on [facility] nebulizer 2/21/23 at solution 1600, 2.5 mg Until Discontinu ed, Routine NaCl 0.9% 2022- No 500mL at 999 Univ ers (NS) bolus 11-09 mL/hr, 500 it y of infusion 20:15: 21:30 mL, IV [place] 500 mL 00 :21 Infusion, Medical ONCE, 1 Branch dose, On Tue11/09/22 at 1415, STAT ondansetron Yes 4mg 4 mg, Slow Univers (ZOFRAN 11-09 IV Push, ity of (PF)) 20:04: Q6HPRN, [place] injection 4 17 Starting Medi lucho mg on Tue Branch 11/09/22 at 1404, Until Discontinu ed, Routine, Nausea and Vomiting (N/V) acetaminoph Yes 650mg 650 mg, Un igor en 11-09 Oral, ity of (TYLENOL) 20:04: Q6HPRN, [place] tablet 650 07 Starting Medic al mg on Tue11/09/22 at 1404, Until Discontinu ed, Routine, Pain (scale 1-3), Temp > 38 C albuterol 0 2022- No 5mg 5 mg, Univer s (PROVENTIL) 11-09 Inhalation i ty of 2.5 mg /3 14:00: 14:05 , ONCE, 1 [place] mL (0.083 00 :00 dose, On Medica l %) [facility] Branch nebulizer 11/09/22 at solution 5 0800, STAT mg albuterol 0 2022- No 10mg 10 mg, Unive rs (PROVENTIL) 11-09 Inhalation i ty of 2.5 mg /3 11:00: 11:04 , ONCE, 1 [place] mL (0.083 00 :00 dose, On Medica l %) [facility] Branch nebulizer 11/09/22 at solution 10 0500, [...] solution 0145, STAT 2.5 mg cephALEXin Yes [id number] 500mg Take 1 Univers (KEFLEX) 9-03 capsule by ity o f 500 mg 00:00: mouth 4 [place] capsule 00 (four) Medical times Branch daily. cephALEXin Yes [id number] 500mg Take 1 Univers (KEFLEX) 05-22 capsule by ity o f 500 mg 00:00: mouth 4 [place] capsule 00 (four) Medical times [facility] daily. cephALEXin 2022- No [id number] 500mg Take 1 Univers (KEFLEX) -11-11 capsule by ity of 500 mg 00:00: 00:00 mouth 4 [place] capsule 00 :00 (four) Medical times [facility] daily. cefTRIAXone 2020- No 1000mg 1,000 mg, Univers (ROCEPHIN) 12-12 IV ity of 1,000 mg in 19:00: 18:23 Piggyback, [place] NaCl 0.9% 00 :00 ONCE, 1 Medical (NS) 50 mL dose, Fri ch MINI-BAG 12/12/20 at 1400, 50 mL
Reas on for Anti-Infec tive: Empiric Therapy for Suspected Infection< br>Empiric Therapy Site: Urine
D uration of therapy: 72 hours carvediloL 2020-0 Yes 25mg Take 25 mg U nivers 25 mg 3-26 by mouth 2 ity of tablet 18:38: (two) [place] [address] times Medical daily with Branch meals. busPIRone 0 Yes 30mg Take 30 mg [place] 30 mg 3-26 by mouth 2 ity of tablet 18:38: (two) [place] [address] times Medical daily. Branch benazepriL 0 Yes 10mg Take 10 mg U nivers 10 mg 3-26 by mouth ity of tablet 18:38: daily. [address] hydroCHLORO 2020-0 Yes 25mg Take 25 mg Univers thiazide 25 3-26 by mouth ity of mg tablet 18:38: daily. [address] carvediloL 2020-0 Yes 25mg Take 25 mg U nivers 25 mg 3-26 by mouth 2 ity of tablet 18:38: (two) [place] [address] times Medical daily with Branch meals. busPIRone 2020-0 Yes 30mg Take 30 mg [facility] [place] 30 mg 3-26 by mouth 2 ity of tablet 18:38: (two) [place] [address] times Medical daily. Branch benazepriL 2020-0 Yes 10mg Take 10 mg U nivers 10 mg 3-26 by mouth ity of tablet 18:38: daily. [address] hydroCHLORO 2021-0 Yes 25mg Take 25 mg Univers thiazide 25 3-26 by mouth ity of mg tablet 18:38: daily. [address] carvediloL 2021-0 Yes 25mg Take 25 [...] by mouth ity of tablet 18:38: daily. [address] hydroCHLORO 1-0 Yes 25mg Take 25 mg [facility] thiazide 25 3-26 by mouth ity of mg tablet 18:38: daily. [address] carvediloL 1-0 Yes 25mg Take 25 [...] by mouth ity of tablet 18:38: daily. [address] hydroCHLORO 1-0 Yes 25mg Take 25 mg [facility] thiazide 25 3-26 by mouth ity of mg tablet 18:38: daily. [address] carvediloL 2021-0 Yes 25mg Take 25 mg U nivers 25 mg 3-26 by mouth 2 ity of tablet 18:38: (two) [place] [id number] times Medical daily with Branch meals. busPIRone 2021-0 Yes 30mg Take 30 mg [place] 30 mg 3-26 by mouth 2 ity of tablet 18:38: (two) [place] 04 times Medical daily. Branch benazepriL 2021-0 Yes 10mg Take 10 mg U nivers 10 mg 3-26 by mouth ity of tablet 18:38: daily. [address] hydroCHLORO 2021-0 Yes 25mg Take 25 mg [facility] thiazide 25 3-26 by mouth ity of mg tablet 18:38: daily. [address] carvediloL 2020-0 Yes 25mg Take 25 [...] by mouth ity of tablet 18:38: daily. [address] hydroCHLORO 2020-0 Yes 25mg Take 25 mg [facility] thiazide 25 3-26 by mouth ity of mg tablet 18:38: daily. [address] carvediloL 2020-0 Yes 25mg Take 25 [...] by mouth ity of tablet 18:38: daily. [address] hydroCHLORO 2020-0 Yes 25mg Take 25 mg [facility] thiazide 25 3-26 by mouth ity of mg tablet 18:38: daily. [address] carvediloL 2020-0 Yes 25mg Take 25 [...] by mouth ity of tablet 18:38: daily. [address] hydroCHLORO 1-0 Yes 25mg Take 25 mg [facility] thiazide 25 3-26 by mouth ity of mg tablet 18:38: daily. [address] carvediloL 2021-0 Yes 25mg Take 25 mg U nivers 25 mg 3-26 by mouth 2 ity of tablet 18:38: (two) [place] times Medical daily with Branch meals. busPIRone 2021-0 Yes 30mg Take 30 mg [place] 30 mg 3-26 by mouth 2 ity of tablet 18:38: (two) [place] [address] times Medical daily. Branch benazepriL 2021-0 Yes 10mg Take 10 mg U nivers 10 mg 3-26 by mouth ity of tablet 18:38: daily. [address] hydroCHLORO 2021-0 Yes 25mg Take 25 mg [facility] thiazide 25 3-26 by mouth ity of mg tablet 18:38: daily. [address] carvediloL 2021-0 Yes 25mg Take 25 mg U nivers 25 mg 3-26 by mouth 2 ity of tablet 18:38: (two) [place] [address] times Medical daily with Branch meals. busPIRone 2021-0 Yes 30mg Take 30 mg [place] 30 mg 3-26 by mouth 2 ity of tablet 18:38: (two) [place] 04 times Medical daily. Branch benazepriL 2021-0 Yes 10mg Take 10 mg U nivers 10 mg 3-26 by mouth ity of tablet 18:38: daily. [address] hydroCHLORO 1-0 Yes 25mg Take 25 mg [facility] thiazide 25 3-26 by mouth ity of mg tablet 18:38: daily. [address] carvediloL 1-0 Yes 25mg Take 25 mg U nivers 25 mg 3-26 by mouth 2 ity of tablet 18:38: (two) [place] [address] times Medical daily with Branch meals. busPIRone 2021-0 Yes 30mg Take 30 mg [place] 30 mg 3-26 by mouth 2 ity of tablet 18:38: (two) [place] times Medical daily. Branch benazepriL 2021-0 Yes 10mg Take 10 mg U nivers 10 mg 3-26 by mouth ity of tablet 18:38: daily. [address] hydroCHLORO 2021-0 Yes 25mg Take 25 mg [facility] thiazide 25 3-26 by mouth ity of mg tablet 18:38: daily. [address] carvediloL 2021-0 Yes 25mg Take 25 mg U nivers 25 mg 3-26 by mouth 2 ity of tablet 18:38: (two) [place] [address] times Medical daily with Branch meals. busPIRone 2021-0 Yes 30mg Take 30 mg [place] 30 mg 3-26 by mouth 2 ity of tablet 18:38: (two) [place] [address] times Medical daily. Branch benazepriL 1-0 Yes 10mg Take 10 mg U nivers 10 mg 3-26 by mouth ity of tablet 18:38: daily. [address] hydroCHLORO 2020-0 Yes 25mg Take 25 mg [facility] thiazide 25 3-26 by mouth ity of mg tablet 18:38: daily. [address] carvediloL 1-0 Yes 25mg Take 25 mg U nivers 25 mg 3-26 by mouth 2 ity of tablet 18:38: (two) [place] [address] times Medical daily with Branch meals. busPIRone 1-0 Yes 30mg Take 30 mg [place] 30 mg 3-26 by mouth 2 ity of tablet 18:38: (two) [place] [address] times Medical daily. Branch benazepriL 1-0 Yes 10mg Take 10 mg U nivers 10 mg 3-26 by mouth ity of tablet 18:38: daily. [address] hydroCHLORO 2020-0 Yes 25mg Take 25 mg [facility] thiazide 25 3-26 by mouth ity of mg tablet 18:38: daily. [address] carvediloL 1-0 Yes 25mg Take 25 mg U nivers 25 mg 3-26 by mouth 2 ity of tablet 18:38: (two) [place] [address] times Medical daily with Branch meals. busPIRone 2021-0 Yes 30mg Take 30 mg [place] 30 mg 3-26 by mouth 2 ity of tablet 18:38: (two) [place] [address] times Medical daily. Branch benazepriL 2021-0 Yes 10mg Take 10 mg U nivers 10 mg 3-26 by mouth ity of tablet 18:38: daily. [address] hydroCHLORO 1-0 Yes 25mg Take 25 mg [facility] thiazide 25 3-26 by mouth ity of mg tablet 18:38: daily. [address] carvediloL 1-0 Yes 25mg Take 25 mg U nivers 25 mg 12-12 by mouth 2 ity of tablet 18:38: (two) [place] 04 times Medical daily with Branch meals. busPIRone Yes 30mg Take 30 mg [place] 30 mg 12-12 by mouth 2 ity of tablet 18:38: (two) [place] 04 times Medical daily. Branch benazepriL Yes 10mg Take 10 mg U nivers 10 mg 12-12 by mouth ity of tablet 18:38: daily. [address] hydroCHLORO Yes 25mg Take 25 mg [facility] thiazide 25 12-12 by mouth ity of mg tablet 18:38: daily. [address] iohexol 2020- No [id number] 120mL 120 mL, [facility] (OMNIPAQUE 12-12 Intravenou it y of 350 17:30: 17:21 s, ONCE, 1 [place] BULK-150 00 :00 dose, Fri Medica l mL) 12/12/20 at [facility] injection 1230, 120 mL Routine aspirin 81 2020- No 81mg Take 81 mg [facility] mg EC 12-12 by mouth ity of tablet 16:57: 00:00 daily. [place] 40 :00 [facility] Branch varenicline 2020- No 1mg Take 1 mg [facility] (CHANTIX) 1 12-12 by mouth 2 i ty of mg tablet 16:57: 00:00 (two) [place] 18 :00 times Medical daily. Branch predniSONE 2020- No 20mg Take 20 mg [facility] 20 mg 12-12 by mouth ity of tablet 16:57: 00:00 daily. [place] 12 :00 [facility] Branch fluticasone 2020- No 1{puff} Inhale 1 [facility] -umeclidin- 12-12 Puff ity of vilanter 16:56: 00:00 daily. [place] (TRELEGY 46 :00 Medical ELLIPTA) Branch 100-62.5-25 mcg DsDv cefpodoxime Yes [id number] 100mg Take 1 [facility] 100 mg 12-12 tablet by ity of tablet 00:00: mouth 2 [place] 00 (two) Medical times Branch daily. cefpodoxime Yes [id number] 100mg Take 1 [facility] 100 mg 3-26 tablet by ity of tablet 00:00: mouth (two) Medical times Branch daily. cefpodoxime 2021-0 Yes [id number] 100mg Take 1 [facility] 100 mg 3-26 tablet by ity of tablet 00:00: mouth (two) Medical times Branch daily. cefpodoxime 2021-0 Yes [id number] 100mg Take 1 [facility] 100 mg 3-26 tablet by ity of tablet 00:00: mouth [place] (two) Medical times Branch daily. cefpodoxime 2021-0 Yes [id number] 100mg Take 1 [facility] 100 mg 3-26 tablet by ity of tablet 00:00: mouth [place] (two) Medical times Branch daily. cefpodoxime 2021-0 Yes [id number] 100mg Take 1 [facility] 100 mg 3-26 tablet by ity of tablet 00:00: mouth [place] (two) Medical times Branch daily. cefpodoxime 2021-0 Yes [id number] 100mg Take 1 [facility] 100 mg 3-26 tablet by ity of tablet 00:00: mouth [place] (two) Medical times Branch daily. cefpodoxime 2021-0 Yes [id number] 100mg Take 1 [facility] 100 mg 3-26 tablet by ity of tablet 00:00: mouth [place] (two) Medical times Branch daily. cefpodoxime 2021-0 Yes [id number] 100mg Take 1 [facility] 100 mg 3-26 tablet by ity of tablet 00:00: mouth [place] (two) Medical times Branch daily. cefpodoxime 2021-0 Yes [id number] 100mg Take 1 [facility] 100 mg 3-26 tablet by ity of tablet 00:00: mouth [place] (two) Medical times Branch daily. cefpodoxime 2021-0 Yes [id number] 100mg Take 1 [facility] 100 mg 3-26 tablet by ity of tablet 00:00: mouth [place] (two) Medical times Branch daily. cefpodoxime 2021-0 Yes [id number] 100mg Take 1 [facility] 100 mg 3-26 tablet by ity of tablet 00:00: mouth [place] (two) Medical times Branch daily. cefpodoxime 2021-0 Yes [id number] 100mg Take 1 [facility] 100 mg 3-26 tablet by ity of tablet 00:00: mouth 2 [place] 00 (two) Medical times Branch daily. cefpodoxime 2020-0 Yes [id number] 100mg Take 1 [facility] 100 mg 3-26 tablet by ity of tablet 00:00: mouth 2 [place] 00 (two) Medical times Branch daily. cefpodoxime 2020-0 Yes [id number] 100mg Take 1 [facility] 100 mg 3-26 tablet by ity of tablet 00:00: mouth 2 [place] 00 (two) Medical times Branch daily. cefpodoxime 2020-0 3- No [id number] 100mg Take 1 [facility] 100 mg 3-26 - tablet by ity of tablet 00:00: 00:00 mouth 2 [place] 00 :00 (two) Medical times Branch daily. cefpodoxime 2020-0 1- No [id number] 100mg Take 1 [facility] 100 mg 3-26 - tablet by ity of tablet 00:00: 00:00 mouth 2 [place] 00 :00 (two) Medical times Branch daily for 7 days. XARELTO 15 2020-0 Yes Univers mg tablet -28 ity of 00:00: [place] Medical Branch XARELTO 15 2020-0 Yes [facility] mg tablet -28 ity of 00:00: [place] Medical Branch XARELTO 15 2020-0 Yes [facility] mg tablet -28 ity of 00:00: [place] Medical Branch XARELTO 15 2020-0 Yes [facility] mg tablet -28 ity of 00:00: [place] [facility] Branch XARELTO 15 2020-0 Yes [facility] mg tablet -28 ity of 00:00: [place] [facility] Branch XARELTO 15 2020-0 Yes [facility] mg tablet -28 ity of 00:00: [place] [facility] Branch XARELTO 15 2020-0 Yes [facility] mg tablet -28 ity of 00:00: [place] [facility] Branch XARELTO 15 2020-0 Yes [facility] mg tablet -28 ity of 00:00: [place] [facility] Branch XARELTO 15 2020-0 Yes [facility] mg tablet -28 ity of 00:00: [place] Medical Branch XARELTO 15 2020-0 Yes [facility] mg tablet -28 ity of 00:00: [place] Medical Branch XARELTO 15 2020-0 Yes Univers mg tablet -28 ity of 00:00: [place] 00 Medical Branch XARELTO 15 2020-0 Yes [facility] mg tablet 10-16 ity of 00:00: [place] 00 Medical Branch XARELTO 15 2020-0 Yes [facility] mg tablet 10-16 ity of 00:00: [place] 00 Medical Branch XARELTO 15 2020-0 Yes [facility] mg tablet 10-16 ity of 00:00: [place] 00 Medical Branch XARELTO 15 2020-0 Yes Univers mg tablet 10-16 ity of 00:00: [place] 00 Medical Branch XARELTO 15 2020-0 Yes [facility] mg tablet 10-16 ity of 00:00: [place] 00 Medical Branch XARELTO 15 2020-0 Yes Univers mg tablet 10-16 ity of 00:00: [place] [address] Medical Branch XARELTO 15 2020-0 Yes Univers mg tablet 10-16 ity of 00:00: [place] [address] Medical Branch XARELTO 15 2020-0 Yes Univers mg tablet 10-16 ity of 00:00: [place] [address] Medical Branch XARELTO 15 2020-0 Yes Univers mg tablet 10-16 ity of 00:00: [place] [address] Medical Branch XARELTO 15 2020-0 Yes Univers mg tablet 10-16 ity of 00:00: [place] [address] Medical Branch XARELTO 15 2020-0 Yes Univers mg tablet 10-16 ity of 00:00: [place] [address] Medical Branch XARELTO 15 2020-0 Yes Univers mg tablet 10-16 ity of 00:00: [place] [address] Medical Branch XARELTO 15 2020-0 2023- No Univer s mg tablet 10-16-12 ity of 00:00: 00:00 [place] 00 :00 [facility] Branch omeprazole 2019- Yes 40mg Take 40 mg U nivers 40 mg 2-10 by mouth ity of capsule 00:11: daily. [address] omeprazole 2018- Yes 40mg Take 40 mg U nivers 40 mg 2-10 by mouth ity of capsule 00:11: daily. [address] varenicline 2018- Yes 1mg Take 1 mg U nivers (CHANTIX) 1 2-10 by mouth 2 it y of mg tablet 00:11: (two) [place] [address] times Medical daily. Branch predniSONE 2018- Yes 20mg Take 20 mg U nivers 20 mg 2-10 by mouth ity of tablet 00:11: daily. [address] omeprazole 2018-09 Yes 40mg Take 40 mg U nivers 40 mg 2-10 by mouth ity of capsule 00:11: daily. [address] fluticasone 2018-09 Yes 1{puff} Inhale 1 [facility] -umeclidin- 2-10 Puff ity of vilanter 00:11: daily. [address]) Branch 100-62.5-25 mcg DsDv aspirin 81 2018-09 Yes 81mg Take 81 mg U nivers mg EC 2-10 by mouth ity of tablet 00:11: daily. [address] varenicline 2018-09 Yes 1mg Take 1 mg U nivers (CHANTIX) 1 2-10 by mouth 2 it y of mg tablet 00:11: (two) [address] daily. Branch predniSONE 2018-09 Yes 20mg Take 20 mg U nivers 20 mg 2-10 by mouth ity of tablet 00:11: daily. [address] omeprazole 2018-09 Yes 40mg Take 40 mg U nivers 40 mg 2-10 by mouth ity of capsule 00:11: daily. [address] fluticasone 2018-09 Yes 1{puff} Inhale 1 Univers -umeclidin- 2-10 Puff ity of vilanter 00:11: daily. [address]) Branch 100-62.5-25 mcg DsDv aspirin 81 2018-09 Yes 81mg Take 81 mg U nivers mg EC 2-10 by mouth ity of tablet 00:11: daily. [address] varenicline 2018-09 Yes 1mg Take 1 mg U nivers (CHANTIX) 1 2-10 by mouth 2 it y of mg tablet 00:11: (two) [address] daily. Branch predniSONE 2018- Yes 20mg Take 20 mg U nivers 20 mg 2-10 by mouth ity of tablet 00:11: daily. [address] omeprazole 2018- Yes 40mg Take 40 mg U nivers 40 mg 2-10 by mouth ity of capsule 00:11: daily. [address] fluticasone 2018- Yes 1{puff} Inhale 1 [facility] -umeclidin- 2-10 Puff ity of vilanter 00:11: daily. [address]) Branch 100-62.5-25 mcg DsDv aspirin 81 2018-09 Yes 81mg Take 81 mg U nivers mg EC 2-10 by mouth ity of tablet 00:11: daily. [address] varenicline 2018-09 Yes 1mg Take 1 mg U nivers (CHANTIX) 1 2-10 by mouth 2 it y of mg tablet 00:11: (two) [address] daily. Branch predniSONE 2018-09 Yes 20mg Take 20 mg U nivers 20 mg 2-10 by mouth ity of tablet 00:11: daily. [address] omeprazole 2018-09 Yes 40mg Take 40 mg U nivers 40 mg 2-10 by mouth ity of capsule 00:11: daily. [address] fluticasone 2018-09 Yes 1{puff} Inhale 1 Univers -umeclidin- 2-10 Puff ity of vilanter 00:11: daily. [address]) Branch 10062.5-25 mcg DsDv aspirin 81 2018-09 Yes 81mg Take 81 mg U nivers mg EC 2-10 by mouth ity of tablet 00:11: daily. [address] varenicline 2018-09 Yes 1mg Take 1 mg U nivers (CHANTIX) 1 2-10 by mouth 2 it y of mg tablet 00:11: (two) [address] daily. Branch predniSONE 2018-09 Yes 20mg Take 20 mg U nivers 20 mg 2-10 by mouth ity of tablet 00:11: daily. [address] omeprazole 2018-09 Yes 40mg Take 40 mg U nivers 40 mg 2-10 by mouth ity of capsule 00:11: daily. [address] fluticasone 2018-09 Yes 1{puff} Inhale 1 [facility] -umeclidin- 2-10 Puff ity of vilanter 00:11: daily. [address]) Branch 100-62.5-25 mcg DsDv aspirin 81 2018-09 Yes 81mg Take 81 mg U nivers mg EC 2-10 by mouth ity of tablet 00:11: daily. [address] varenicline 2018-09 Yes 1mg Take 1 mg U nivers (CHANTIX) 1 2-10 by mouth 2 it y of mg tablet 00:11: (two) [place] [address] times Medical daily. Branch predniSONE 2018- Yes 20mg Take 20 mg U nivers 20 mg 2-10 by mouth ity of tablet 00:11: daily. [place] [address] Medical Branch omeprazole 2018- Yes 40mg Take 40 mg U nivers 40 mg 2-10 by mouth ity of capsule 00:11: daily. [place] [address] Medical Branch fluticasone 2018- Yes 1{puff} Inhale 1 Univers -umeclidin- 2-10 Puff ity of vilanter 00:11: daily. [place] ([place] [address] Medical [facility]) Branch 100-62.5-25 mcg DsDv aspirin 81 2018- Yes 81mg Take 81 mg U nivers mg EC 2-10 by mouth ity of tablet 00:11: daily. [address] Branch omeprazole 2018- Yes 40mg Take 40 mg U nivers 40 mg 2-10 by mouth ity of capsule 00:11: daily. [address] omeprazole 2018- Yes 40mg Take 40 mg U nivers 40 mg 2-10 by mouth ity of capsule 00:11: daily. [address] omeprazole 2018- Yes 40mg Take 40 mg U nivers 40 mg 2-10 by mouth ity of capsule 00:11: daily. [address] omeprazole 2018- Yes 40mg Take 40 mg U nivers 40 mg 2-10 by mouth ity of capsule 00:11: daily. [address] omeprazole 2018- Yes 40mg Take 40 mg U nivers 40 mg 2-10 by mouth ity of capsule 00:11: daily. [address] omeprazole 2018- Yes 40mg Take 40 mg U nivers 40 mg 2-10 by mouth ity of capsule 00:11: daily. [address] omeprazole 2018- Yes 40mg Take 40 mg U nivers 40 mg 2-10 by mouth ity of capsule 00:11: daily. [address] omeprazole 2018- Yes 40mg Take 40 mg U nivers 40 mg 2-10 by mouth ity of capsule 00:11: daily. [address] omeprazole 2018- Yes 40mg Take 40 mg U nivers 40 mg 2-10 by mouth ity of capsule 00:11: daily. [address] omeprazole 2018-09 Yes 40mg Take 40 mg U nivers 40 mg 2-10 by mouth ity of capsule 00:11: daily. [address] omeprazole 2018-09 Yes 40mg Take 40 mg U nivers 40 mg 2-10 by mouth ity of capsule 00:11: daily. [address] omeprazole 2018-09 Yes 40mg Take 40 mg U nivers 40 mg 2-10 by mouth ity of capsule 00:11: daily. [address] omeprazole 2018-09 Yes 40mg Take 40 mg U nivers 40 mg 2-10 by mouth ity of capsule 00:11: daily. [address] Branch KCL 20 mEq 2018-09 Yes [id number] 40meq Take 2 Univers tablet 2-09 tablets by ity of 00:00: mouth [place] 00 daily. Medical Branch KCL 20 mEq 2018-09 Yes [id number] 40meq Take 2 [facility] tablet 2-09 tablets by ity of 00:00: mouth [place] 00 daily. Medical Branch atorvastati 2018-09 Yes [id number] 20mg Take 1 Univers n 20 mg 2-09 tablet by ity of tablet 00:00: mouth at [place] 00 bedtime. Medical Branch metoprolol 2018-09 Yes [id number] 50mg Take 1 [facility] succinate 2-09 tablet by ity o f XL 50 mg 24 00:00: mouth 2 [place] hr tablet 00 (two) Medical times Branch daily. furosemide 2018-09 Yes [id number] 40mg Take 1 [facility] 40 mg 2-09 tablet by ity of tablet 00:00: mouth [place] 00 every Medical morning Branch and evening. KCL 20 mEq 2018-09 Yes [id number] 40meq Take 2 Univers tablet 2-09 tablets by ity of 00:00: mouth [place] 00 daily. Medical Branch atorvastati 2018-09 Yes [id number] 20mg Take 1 [facility] n 20 mg 2-09 tablet by ity of tablet 00:00: mouth at [place] 00 bedtime. Medical Branch metoprolol 2018-09 Yes [id number] 50mg Take 1 [facility] succinate 2-09 tablet by ity o f XL 50 mg 24 00:00: mouth 2 [place] hr tablet 00 (two) Medical times Branch daily. furosemide 2018-09 Yes [id number] 40mg Take 1 [facility] 40 mg 2-09 tablet by ity of tablet 00:00: mouth [place] 00 every Medical morning Branch and evening. KCL 20 mEq 2018-09 Yes [id number] 40meq Take 2 Univers tablet 2-09 tablets by ity of 00:00: mouth [place] 00 daily. Medical Branch atorvastati 2018-09 Yes [id number] 20mg Take 1 [facility] n 20 mg 2-09 tablet by ity of tablet 00:00: mouth at [place] 00 bedtime. Medical Branch metoprolol 2018-09 Yes [id number] 50mg Take 1 [facility] succinate 2-09 tablet by ity o f XL 50 mg 24 00:00: mouth 2 [place] hr tablet 00 (two) Medical times Branch daily. furosemide 2018-09 Yes [id number] 40mg Take 1 [facility] 40 mg 2-09 tablet by ity of tablet 00:00: mouth [place] 00 every Medical morning Branch and evening. KCL 20 mEq 2018-09 Yes [id number] 40meq Take 2 [facility] tablet 2-09 tablets by ity of 00:00: mouth [place] 00 daily. Medical Branch atorvastati 2018-09 Yes [id number] 20mg Take 1 [facility] n 20 mg 2-09 tablet by ity of tablet 00:00: mouth at [place] 00 bedtime. Medical Branch metoprolol 2018-09 Yes [id number] 50mg Take 1 [facility] succinate 2-09 tablet by ity o f XL 50 mg 24 00:00: mouth 2 [place] hr tablet 00 (two) Medical times Branch daily. furosemide 2018-09 Yes [id number] 40mg Take 1 [facility] 40 mg 2-09 tablet by ity of tablet 00:00: mouth [place] 00 every Medical morning Branch and evening. KCL 20 mEq 2018-09 Yes [id number] 40meq Take 2 [facility] tablet 2-09 tablets by ity of 00:00: mouth [place] 00 daily. Medical Branch atorvastati 2018-09 Yes [id number] 20mg Take 1 [facility] n 20 mg 2-09 tablet by ity of tablet 00:00: mouth at [place] 00 bedtime. Medical Branch metoprolol 2018-09 Yes [id number] 50mg Take 1 [facility] succinate 2-09 tablet by ity o f XL 50 mg 24 00:00: mouth 2 [place] hr tablet 00 (two) Medical times Branch daily. furosemide 2018-09 Yes [id number] 40mg Take 1 [facility] 40 mg 2-09 tablet by ity of tablet 00:00: mouth [place] 00 every Medical morning Branch and evening. KCL 20 mEq 2018-09 Yes [id number] 40meq Take 2 [facility] tablet 2-09 tablets by ity of 00:00: mouth [place] 00 daily. Medical Branch atorvastati 2018-09 Yes [id number] 20mg Take 1 [facility] n 20 mg 2-09 tablet by ity of tablet 00:00: mouth at [place] 00 bedtime. Medical Branch metoprolol 2018-09 Yes [id number] 50mg Take 1 [facility] succinate 2-09 tablet by ity o f XL 50 mg 24 00:00: mouth 2 [place] hr tablet 00 (two) Medical times Branch daily. furosemide 2018-09 Yes [id number] 40mg Take 1 [facility] 40 mg 2-09 tablet by ity of tablet 00:00: mouth [place] 00 every Medical morning Branch and evening. KCL 20 mEq 2018-09 Yes [id number] 40meq Take 2 [facility] tablet 2-09 tablets by ity of 00:00: mouth [place] 00 daily. Medical Branch KCL 20 mEq 2018-09 Yes [id number] 40meq Take 2 [facility] tablet 2-09 tablets by ity of 00:00: mouth [place] 00 daily. Medical Branch KCL 20 mEq 2018-09 Yes [id number] 40meq Take 2 [facility] tablet 2-09 tablets by ity of 00:00: mouth [place] 00 daily. Medical Branch KCL 20 mEq 2018-09 Yes [id number] 40meq Take 2 [facility] tablet 2-09 tablets by ity of 00:00: mouth [place] 00 daily. Medical Branch KCL 20 mEq 2018-09 Yes [id number] 40meq Take 2 [facility] tablet 2-09 tablets by ity of 00:00: mouth [place] 00 daily. Medical Branch KCL 20 mEq 2018-09 Yes [id number] 40meq Take 2 [facility] tablet 2-09 tablets by ity of 00:00: mouth [place] 00 daily. Medical Branch KCL 20 mEq 2018-09 Yes [id number] 40meq Take 2 [facility] tablet 2-09 tablets by ity of 00:00: mouth [place] 00 daily. Medical Branch KCL 20 mEq 2018-09 Yes [id number] 40meq Take 2 [facility] tablet 2-09 tablets by ity of 00:00: mouth [place] 00 daily. Medical Branch KCL 20 mEq 2018-09 Yes [id number] 40meq Take 2 [facility] tablet 2-09 tablets by ity of 00:00: mouth [place] 00 daily. Medical Branch KCL 20 mEq 2018-09 Yes [id number] 40meq Take 2 [facility] tablet 2-09 tablets by ity of 00:00: mouth [place] 00 daily. Medical Branch KCL 20 mEq 2018-09 Yes [id number] 40meq Take 2 [facility] tablet 2-09 tablets by ity of 00:00: mouth [place] 00 daily. Medical Branch KCL 20 mEq 2018-09 Yes [id number] 40meq Take 2 [facility] tablet 2-09 tablets by ity of 00:00: mouth [place] 00 daily. Medical Branch KCL 20 mEq 2018-09 Yes [id number] 40meq Take 2 [facility] tablet 2-09 tablets by ity of 00:00: mouth [place] 00 daily. Medical Branch KCL 20 mEq 2018-09 Yes [id number] 40meq Take 2 [facility] tablet 2-09 tablets by ity of 00:00: mouth [place] 00 daily. Medical Branch KCL 20 mEq 2018-09 Yes [id number] 40meq Take 2 [facility] tablet 2-09 tablets by ity of 00:00: mouth [place] 00 daily. Medical Branch KCL 20 mEq 2018-09 Yes [id number] 40meq Take 2 [facility] tablet 2-09 tablets by ity of 00:00: mouth [place] 00 daily. Medical Branch KCL 20 mEq 2018-09 Yes [id number] 40meq Take 2 [facility] tablet 2-09 tablets by ity of 00:00: mouth [place] 00 daily. Medical Branch KCL 20 mEq 2018-09 Yes [id number] 40meq Take 2 [facility] tablet 2-09 tablets by ity of 00:00: mouth [place] 00 daily. Medical Branch KCL 20 mEq 2018-09 Yes [id number] 40meq Take 2 [facility] tablet 2-09 tablets by ity of 00:00: mouth [place] 00 daily. Medical Branch KCL 20 mEq 2018-09- No [id number] 40meq Take 2 [facility] tablet 2-09 03-12 tablets by ity of 00:00: 00:00 mouth [place] 00 :00 daily. Medical Branch atorvastati 2018-09- No [id number] 20mg Take 1 [facility] n 20 mg 2- tablet by ity of tablet 00:00: 00:00 mouth at [place] 00 :00 bedtime. Medical Branch metoprolol 2018-09- No [id number] 50mg Take 1 [facility] succinate 2-05 22-26 tablet by ity of XL 50 mg 24 00:00: 00:00 mouth 2 [place] hr tablet 00 :00 (two) Medical times Branch daily. furosemide 2018-09- No [id number] 40mg Take 1 [facility] 40 mg 10-28 [...] Until mL Discontinu ed, Routine ibuprofen Yes [id number] 600mg Take 1 U nivers 600 mg 5-31 tablet by ity of tablet 00:00: mouth [place] 00 every 8 Medical (eight) Branch hours as needed (PAIN). ibuprofen Yes [id number] 600mg Take 1 U nivers 600 mg 5-31 tablet by ity of tablet 00:00: mouth [place] 00 every 8 Medical (eight) Branch hours as needed (pain). ibuprofen 2018- No [id number] 600mg Take 1 [facility] 600 mg 5-31 08-15 tablet by ity of tablet 00:00: 00:00 mouth [place] 00 :00 every 8 Medical (eight) Branch hours as needed (PAIN). ibuprofen 2018- No [id number] 600mg Take 1 [facility] 600 mg 5-31 08-15 tablet by ity of tablet 00:00: 00:00 mouth [place] 00 :00 every 8 Medical (eight) Branch hours as needed (pain). magnesium Yes 400mg Take 1 Tab U nivers oxide 2-23 by mouth 3 ity of (MAG-OX 00:00: (three) [place] 400) 400 mg 00 times Medical tablet daily. Branch enalapril Yes [id number] 2.5mg Take 1 Tab Univers (VASOTEC) 2-23 [...] s tablet 00 Medical Branch furosemide Yes [id number] 40mg Take 1 Tab [facility] (LASIX) 40 [...] Medical tablet daily. Branch enalapril 2018- No [id number] 2.5mg Take 1 Tab [facility] (VASOTEC) 2- [...] 00 :00 [facility] furosemide 2019- No [id number] 40mg Take 1 Tab Univers (LASIX) 40 [...] by mouth ity of tablet 00:00: daily. [place] [facility] ipratropium 2013-09 Yes .5mg Inhale [...] by mouth ity of tablet 00:00: daily. [place] [facility] ipratropium 2013-09 Yes .5mg Inhale [...] by mouth ity of tablet 00:00: daily. [place] [facility] ipratropium 2013-09 Yes .5mg Inhale [...] by mouth ity of tablet 00:00: daily. [place] [facility] ipratropium 2013-09 Yes .5mg Inhale [...] by mouth ity of tablet 00:00: daily. [facility] [place] [facility] ipratropium 2013-09 Yes .5mg Inhale [...] by mouth ity of tablet 00:00: daily. [place] [facility] ipratropium 2013-09 Yes .5mg Inhale [...] by mouth ity of tablet 00:00: daily. [place] [facility] ipratropium 2013-09 Yes .5mg Inhale [...] by mouth ity of tablet 00:00: daily. [place] [facility] ipratropium 2013-09 Yes .5mg Inhale [...] by mouth ity of tablet 00:00: daily. [place] [facility] ipratropium 2013-09 Yes .5mg Inhale [...] by mouth ity of tablet 00:00: daily. [place] [facility] ipratropium 2013-09 Yes .5mg Inhale [...] by mouth ity of tablet 00:00: daily. [facility] [place] [facility] ipratropium 2013-09 Yes .5mg Inhale [...] by mouth ity of tablet 00:00: daily. [place] [facility] ipratropium 2013-09 Yes .5mg Inhale [...] by mouth ity of tablet 00:00: daily. [place] [facility] ipratropium 2013-09 Yes .5mg Inhale [...] by mouth ity of tablet 00:00: daily. [place] [facility] ipratropium 2013-09 Yes .5mg Inhale [...] by mouth ity of tablet 00:00: daily. [place] [facility] ipratropium 2013-09 Yes .5mg Inhale [...] by mouth ity of tablet 00:00: daily. [place] [facility] ipratropium 2013-09 Yes .5mg Inhale [...] by mouth ity of tablet 00:00: daily. [place] [facility] ipratropium 2013-09 Yes .5mg Inhale 2.5 Univers (ATROVENT) 2-17 mL 4 ity of 0.02 % 00:00: (four) [place] nebulizer 00 times Medical solution daily. Branch levalbutero 2013-09 Yes .31mg Inhale Uni vers l (XOPENEX) 2-17 0.31 mg 3 ity of 0.31 mg/3 00:00: (three) [place] mL 00 times Medical nebulizer daily. Branch solution aspirin 81 2014-1 2023- No 81mg Take 1 Tab [facility] mg chewable 11-05 by mouth ity of tablet 00:00: 00:00 daily. [place] 00 :00 [facility] ipratropium 2013-09- No [...] Filled Immunization Date Status Comments [facility] e Immunization Name Name Pneumococcal 20 2022-12-12 Completed Universit y of Conjugate, PCV20 00:00:00 [facility] dical (Prevnar 20) Branch Pneumococcal 20 2022-12-12 Completed Universit y of Conjugate, PCV20 00:00:00 [facility] dical (Prevnar 20) Branch Pneumococcal 20 2022-12-12 Completed Universit y of Conjugate, PCV20 00:00:00 [facility] dical (Prevnar 20) Branch Pneumococcal 20 2022-12-12 Completed Universit y of Conjugate, PCV20 00:00:00 [facility] dical (Prevnar 20) Branch Pneumococcal 20 2022-12-12 Completed Universit y of Conjugate, PCV20 00:00:00 [facility] dical (Prevnar 20) Branch Pneumococcal 20 2022-12-12 Completed Universit y of Conjugate, PCV20 00:00:00 [facility] dical (Prevnar 20) Branch Pneumococcal 20 2022-12-12 Completed Universit y of Conjugate, PCV20 00:00:00 [facility] dical (Prevnar 20) Branch Pneumococcal 20 2022-12-12 Completed Universit y of Conjugate, PCV20 00:00:00 [facility] dical (Prevnar 20) Branch Pneumococcal 20 2022-12-12 Completed Universit y of Conjugate, PCV20 00:00:00 [facility] dical (Prevnar 20) Branch Pneumococcal 20 2022-12-12 Completed Universit y of Conjugate, PCV20 00:00:00 [facility] dical (Prevnar 20) Branch Pneumococcal 20 2022-12-12 Completed Universit y of Conjugate, PCV20 00:00:00 [place] [facility] (Prevnar 20) Branch Pneumococcal 20 2022-12-12 Completed Universit y of Conjugate, PCV20 00:00:00 [place] [facility] (Prevnar 20) Branch Pneumococcal 20 2022-12-12 Completed Universit y of Conjugate, PCV20 00:00:00 [facility] dical (Prevnar 20) Branch Pneumococcal 20 2022-12-12 Completed Universit y of Conjugate, PCV20 00:00:00 [facility] dical (Prevnar 20) Branch Pneumococcal 20 2022-12-12 Completed Universit y of Conjugate, PCV20 00:00:00 [place] [facility] (Prevnar 20) Branch Pneumococcal 20 2022-12-12 Completed Universit y of Conjugate, PCV20 00:00:00 [facility] dical (Prevnar 20) Branch Pneumococcal 20 2022-12-12 Completed Universit y of Conjugate, PCV20 00:00:00 [facility] dical (Prevnar 20) Branch Pneumococcal 20 2022-12-12 Completed Universit y of Conjugate, PCV20 00:00:00 [facility] dical (Prevnar 20) Branch Pneumococcal 20 2022-12-12 Completed Universit y of Conjugate, PCV20 00:00:00 [facility] dical (Prevnar 20) Branch Pneumococcal 20 2022-12-12 Completed Universit y of Conjugate, PCV20 00:00:00 [facility] dical (Prevnar 20) Branch Pneumococcal 20 2022-12-12 Completed Universit y of Conjugate, PCV20 00:00:00 [facility] dical (Prevnar 20) Branch Pneumococcal 20 2022-12-12 Completed Universit y of Conjugate, PCV20 00:00:00 [facility] dical (Prevnar 20) Branch Pneumococcal 20 2022-12-12 Completed Universit y of Conjugate, PCV20 00:00:00 [facility] dical (Prevnar 20) Branch Pneumococcal 20 2022-12-12 Completed Universit y of Conjugate, PCV20 00:00:00 [facility] dical (Prevnar 20) Branch Pneumococcal 20 2022-12-12 Completed Universit y of Conjugate, PCV20 00:00:00 [facility] dical (Prevnar 20) Branch Pneumococcal 20 [...] Universit y of Conjugate, PCV20 00:00:00 [place] [facility] (Prevnar 20) Branch Pneumococcal 20 2022-12-12 [...] Universit y of Conjugate, PCV20 00:00:00 [place] [facility] d[facility] (Prevnar 20) Branch SARS-COV-2 COVID-19 2020-11-23 [...] rsity of MODERNA 12+ YRS 00:00:00 [place] [facility] ical VACCINE Branch SARS-COV-2 COVID-19 2020-10-26 Completed Unive rsity of MODERNA 12+ YRS 00:00:00 [facility] ical VACCINE Branch Td 2019-02-16 Completed University of 00:00:00 [facility] [place] [facility] TD, NOS 2019-02-16 Completed University of 00:00:00 [place] [facility] TD, NOS 2019-02-16 Completed University of 00:00:00 [facility] [place] [facility] TD, NOS 2019-02-16 Completed University of 00:00:00 [facility] [place] [facility] TD, NOS 2019-02-16 Completed University of 00:00:00 [facility] [place] [facility] TD, NOS 2019-02-16 Completed University of 00:00:00 [place] [facility] Td 2019-02-16 Completed University of 00:00:00 [place] [facility] TD, NOS 2019-02-16 Completed University of 00:00:00 [place] [facility] TD, NOS 2019-02-16 Completed University of 00:00:00 [place] [facility] TD, NOS 2019-02-16 Completed University of 00:00:00 [facility] TD, NOS 2019-02-16 Completed University of 00:00:00 [facility] [place] [facility] TD, NOS 2019-02-16 Completed University [...] TD, NOS 2019-02-16 Completed University of 00:00:00 [facility] TD, NOS 2019-02-16 Completed University of 00:00:00 [facility] TD, NOS 2019-02-16 Completed University of 00:00:00 [facility] Pneumococcal 2014-09-05 Completed University o f Polysaccharide, 00:00:00 [place] [facility] ical PPSV23 (PNEUMOVAX) Branch Influenza Virus 2014-09-05 Completed Universit y of Vaccine Quad IM 3+ 00:00:00 [facility] Pneumococcal 2014-09-05 Completed University o f Polysaccharide, 00:00:00 [place] [facility] ical PPSV23 (PNEUMOVAX) Branch Influenza Virus 2014-09-05 Completed Universit y of Vaccine Quad IM 3+ 00:00:00 [facility] Pneumococcal 2014-09-05 Completed University o f Polysaccharide, 00:00:00 [place] [facility] PPSV23 (PNEUMOVAX) Branch Influenza Virus 2014-09-05 Completed Universit y of Vaccine Quad IM 3+ 00:00:00 [facility] Pneumococcal 2014-09-05 Completed University o f Polysaccharide, 00:00:00 [place] [facility] PPSV23 (PNEUMOVAX) Branch Influenza Virus 2014-09-05 Completed Universit y of Vaccine Quad IM 3+ 00:00:00 [facility] Pneumococcal 2014-09-05 Completed University o f Polysaccharide, 00:00:00 [place] [facility] PPSV23 (PNEUMOVAX) Branch Influenza Virus 2014-09-05 Completed Universit y of Vaccine Quad IM 3+ 00:00:00 [facility] Pneumococcal 2014-09-05 Completed University o f Polysaccharide, 00:00:00 [place] [facility] PPSV23 (PNEUMOVAX) Branch Influenza Virus 2014-09-05 Completed Universit y of Vaccine Quad IM 3+ 00:00:00 [facility] Pneumococcal 2014-09-05 Completed University o f Polysaccharide, 00:00:00 [place] [facility] PPSV23 (PNEUMOVAX) Branch Influenza Virus 2014-09-05 Completed Universit y of Vaccine Quad IM 3+ 00:00:00 [facility] Pneumococcal 2014-09-05 Completed University o f Polysaccharide, 00:00:00 [place] [facility] PPSV23 (PNEUMOVAX) Branch Influenza Virus 2014-09-05 Completed Universit y of Vaccine Quad IM 3+ 00:00:00 [facility] Pneumococcal 2014-09-05 Completed University o f Polysaccharide, 00:00:00 [place] [facility] ical PPSV23 (PNEUMOVAX) Branch Influenza Virus 2014-09-05 Completed Universit y of Vaccine Quad IM 3+ 00:00:00 [facility] Pneumococcal 2014-09-05 Completed University o f Polysaccharide, 00:00:00 [place] [facility] ical PPSV23 (PNEUMOVAX) Branch Influenza Virus 2014-09-05 Completed Universit y of Vaccine Quad IM 3+ 00:00:00 [facility] Pneumococcal 2014-09-05 Completed University o f Polysaccharide, 00:00:00 [place] [facility] ical PPSV23 (PNEUMOVAX) Branch Influenza Virus 2014-09-05 Completed Universit y of Vaccine Quad IM 3+ 00:00:00 [facility] Pneumococcal 2014-09-05 Completed University o f Polysaccharide, 00:00:00 [place] [facility] ical PPSV23 (PNEUMOVAX) Branch Influenza Virus 2014-09-05 Completed Universit y of Vaccine Quad IM 3+ 00:00:00 [facility] Pneumococcal 2014-09-05 Completed University o f Polysaccharide, 00:00:00 [place] [facility] PPSV23 (PNEUMOVAX) Branch Influenza Virus 2014-09-05 Completed Universit y of Vaccine Quad IM 3+ 00:00:00 [facility] Influenza Virus 2014-09-05 Completed Universit y of Vaccine Quad IM 3+ 00:00:00 [facility] Pneumococcal 2014-09-05 Completed University o f Polysaccharide, 00:00:00 [place] [facility] PPSV23 (PNEUMOVAX) Branch Pneumococcal 2014-09-05 Completed University o f Polysaccharide, 00:00:00 [place] [facility] ical PPSV23 (PNEUMOVAX) Branch Influenza Virus 2014-09-05 Completed Universit y of Vaccine Quad IM 3+ 00:00:00 [facility] Pneumococcal 2014-09-05 Completed University o f Polysaccharide, 00:00:00 [place] [facility] ical PPSV23 (PNEUMOVAX) Branch Influenza Virus 2014-09-05 Completed Universit y of Vaccine Quad IM 3+ 00:00:00 [facility] Pneumococcal 2014-09-05 Completed University o f Polysaccharide, 00:00:00 [place] [facility] ical PPSV23 (PNEUMOVAX) Branch Influenza Virus 2014-09-05 Completed Universit y of Vaccine Quad IM 3+ 00:00:00 [facility] Pneumococcal 2014-09-05 Completed University o f Polysaccharide, 00:00:00 [place] [facility] ical PPSV23 (PNEUMOVAX) Branch Influenza Virus 2014-09-05 Completed Universit y of Vaccine Quad IM 3+ 00:00:00 [facility] Pneumococcal 2014-09-05 Completed University o f Polysaccharide, 00:00:00 [place] [facility] PPSV23 (PNEUMOVAX) Branch Influenza Virus 2014-09-05 Completed Universit y of Vaccine Quad IM 3+ 00:00:00 [facility] Pneumococcal 2014-09-05 Completed University o f Polysaccharide, 00:00:00 [place] [facility] PPSV23 (PNEUMOVAX) Branch Influenza Virus 2014-09-05 Completed Universit y of Vaccine Quad IM 3+ 00:00:00 [facility] Pneumococcal 2014-09-05 Completed University o f Polysaccharide, 00:00:00 [place] [facility] PPSV23 (PNEUMOVAX) Branch Influenza Virus 2014-09-05 Completed Universit y of Vaccine Quad IM 3+ 00:00:00 [facility] Pneumococcal 2014-09-05 Completed University o f Polysaccharide, 00:00:00 [place] [facility] PPSV23 (PNEUMOVAX) Branch Influenza Virus 2014-09-05 Completed Universit y of Vaccine Quad IM 3+ 00:00:00 [facility] Pneumococcal 2014-09-05 Completed University o f Polysaccharide, 00:00:00 [place] [facility] PPSV23 (PNEUMOVAX) Branch Influenza Virus 2014-09-05 Completed Universit y of Vaccine Quad IM 3+ 00:00:00 [facility] Pneumococcal 2014-09-05 Completed University o f Polysaccharide, 00:00:00 [place] [facility] PPSV23 (PNEUMOVAX) Branch Influenza Virus 2014-09-05 Completed Universit y of Vaccine Quad IM 3+ 00:00:00 [facility] Pneumococcal 2014-09-05 Completed University o f Polysaccharide, 00:00:00 [place] [facility] PPSV23 (PNEUMOVAX) Branch Influenza Virus 2014-09-05 Completed Universit y of Vaccine Quad IM 3+ 00:00:00 [facility] Pneumococcal 2014-09-05 Completed University o f Polysaccharide, 00:00:00 [place] [facility] ical PPSV23 (PNEUMOVAX) Branch Influenza Virus 2014-09-05 Completed Universit y of Vaccine Quad IM 3+ 00:00:00 [facility] Pneumococcal 2014-09-05 Completed University o f Polysaccharide, 00:00:00 [place] [facility] ical PPSV23 (PNEUMOVAX) Branch Influenza Virus 2014-09-05 Completed Universit y of Vaccine Quad IM 3+ 00:00:00 [facility] Pneumococcal 2014-09-05 Completed University o f Polysaccharide, 00:00:00 [place] [facility] ical PPSV23 (PNEUMOVAX) Branch Influenza Virus 2014-09-05 Completed Universit y of Vaccine Quad IM 3+ 00:00:00 [facility] Pneumococcal 2014-09-05 Completed University o f Polysaccharide, 00:00:00 [place] [facility] PPSV23 (PNEUMOVAX) Branch Influenza Virus 2014-09-05 Completed Universit y of Vaccine Quad IM 3+ 00:00:00 [facility] Pneumococcal 2014-09-05 Completed University o f Polysaccharide, 00:00:00 [place] [facility] PPSV23 (PNEUMOVAX) Branch Influenza Virus 2014-09-05 Completed Universit y of Vaccine Quad IM 3+ 00:00:00 [facility] Pneumococcal 2014-09-05 Completed University o f Polysaccharide, 00:00:00 [place] [facility] PPSV23 (PNEUMOVAX) Branch Influenza Virus 2014-09-05 Completed Universit y of Vaccine Quad IM 3+ 00:00:00 [facility] Influenza Virus 2014-09-05 Completed Universit y of Vaccine Quad IM 3+ 00:00:00 [facility] Pneumococcal 2014-09-05 Completed University o f Polysaccharide, 00:00:00 [place] [facility] ical PPSV23 (PNEUMOVAX) Branch Pneumococcal 2014-09-05 Completed University o f Polysaccharide, 00:00:00 [place] [facility] PPSV23 (PNEUMOVAX) Branch Influenza Virus 2014-09-05 Completed Universit y of Vaccine Quad IM 3+ 00:00:00 [facility] Pneumococcal 2014-09-05 Completed University o f Polysaccharide, 00:00:00 [place] [facility] ical PPSV23 (PNEUMOVAX) Branch Influenza Virus 2014-09-05 Completed Universit y of Vaccine Quad IM 3+ 00:00:00 [facility] Pneumococcal 2014-09-05 Completed University o f Polysaccharide, 00:00:00 [place] [facility] ical PPSV23 (PNEUMOVAX) Branch Influenza Virus 2014-09-05 Completed Universit y of Vaccine Quad IM 3+ 00:00:00 [facility] Pneumococcal 2014-09-05 Completed University o f Polysaccharide, 00:00:00 [place] [facility] ical PPSV23 (PNEUMOVAX) Branch Influenza Virus 2014-09-05 Completed Universit y of Vaccine Quad IM 3+ 00:00:00 [facility] Pneumococcal 2014-09-05 Completed University o f Polysaccharide, 00:00:00 [place] [facility] ical PPSV23 (PNEUMOVAX) Branch Influenza Virus 2014-09-05 Completed Universit y of Vaccine Quad IM 3+ 00:00:00 [facility] Pneumococcal 2014-09-05 Completed University o f Polysaccharide, 00:00:00 [place] [facility] PPSV23 (PNEUMOVAX) Branch Influenza Virus 2014-09-05 Completed Universit y of Vaccine Quad IM 3+ 00:00:00 [facility] Pneumococcal 2014-09-05 Completed University o f Polysaccharide, 00:00:00 [place] [facility] PPSV23 (PNEUMOVAX) Branch Influenza Virus 2014-09-05 Completed Universit y of Vaccine Quad IM 3+ 00:00:00 [facility] Pneumococcal 2014-09-05 Completed University o f Polysaccharide, 00:00:00 [place] [facility] PPSV23 (PNEUMOVAX) Branch Influenza Virus 2014-09-05 Completed Universit y of Vaccine Quad IM 3+ 00:00:00 [facility] Pneumococcal 2014-09-05 Completed University o f Polysaccharide, 00:00:00 [place] [facility] PPSV23 (PNEUMOVAX) Branch Influenza Virus 2014-09-05 Completed Universit y of Vaccine Quad IM 3+ 00:00:00 [facility] Pneumococcal 2014-09-05 Completed University o f Polysaccharide, 00:00:00 [place] [facility] PPSV23 (PNEUMOVAX) Branch Influenza Virus 2014-09-05 Completed Universit y of Vaccine Quad IM 3+ 00:00:00 [facility] Pneumococcal 2014-09-05 Completed University o f Polysaccharide, 00:00:00 [place] [facility] PPSV23 (PNEUMOVAX) Branch Influenza Virus 2014-09-05 Completed Universit y of Vaccine Quad IM 3+ 00:00:00 [facility] Pneumococcal 2014-09-05 Completed University o f Polysaccharide, 00:00:00 [place] [facility] PPSV23 (PNEUMOVAX) Branch Influenza Virus 2014-09-05 Completed Universit y of Vaccine Quad IM 3+ 00:00:00 [facility] Pneumococcal 2014-09-05 Completed University o f Polysaccharide, 00:00:00 [place] [facility] ical PPSV23 (PNEUMOVAX) Branch Influenza Virus 2014-09-05 Completed Universit y of Vaccine Quad IM 3+ 00:00:00 [facility] Pneumococcal 2014-09-05 Completed University o f Polysaccharide, 00:00:00 [place] [facility] ical PPSV23 (PNEUMOVAX) Branch Influenza Virus 2014-09-05 Completed Universit y of Vaccine Quad IM 3+ 00:00:00 [facility] Pneumococcal 2014-09-05 Completed University o f Polysaccharide, 00:00:00 [place] [facility] ical PPSV23 (PNEUMOVAX) Branch Influenza Virus 2014-09-05 Completed Universit y of Vaccine Quad IM 3+ 00:00:00 [facility] Pneumococcal 2014-09-05 Completed University o f Polysaccharide, 00:00:00 [place] [facility] PPSV23 (PNEUMOVAX) Branch Influenza Virus 2014-09-05 Completed Universit y of Vaccine Quad IM 3+ 00:00:00 [facility] Pneumococcal 2014-09-05 Completed University o f Polysaccharide, 00:00:00 [place] [facility] PPSV23 (PNEUMOVAX) Branch Influenza Virus 2014-09-05 Completed Universit y of Vaccine Quad IM 3+ 00:00:00 [facility] Pneumococcal 2014-09-05 Completed University o f Polysaccharide, 00:00:00 [place] [facility] PPSV23 (PNEUMOVAX) Branch Influenza Virus 2014-09-05 Completed Universit y of Vaccine Quad IM 3+ 00:00:00 [facility] Pneumococcal 2014-09-05 Completed University o f Polysaccharide, 00:00:00 [place] [facility] PPSV23 (PNEUMOVAX) Branch Influenza Virus 2014-09-05 Completed Universit y of Vaccine Quad IM 3+ 00:00:00 [facility] Pneumococcal 2014-09-05 Completed University o f Polysaccharide, 00:00:00 [place] [facility] PPSV23 (PNEUMOVAX) Branch Influenza Virus 2014-09-05 Completed Universit y of Vaccine Quad IM 3+ 00:00:00 [facility] Pneumococcal 2014-09-05 Completed University o f Polysaccharide, 00:00:00 [place] [facility] ical PPSV23 (PNEUMOVAX) Branch Influenza Virus 2014-09-05 Completed Universit y of Vaccine Quad IM 3+ 00:00:00 [facility] Pneumococcal 2014-09-05 Completed University o f Polysaccharide, 00:00:00 [place] [facility] ical PPSV23 (PNEUMOVAX) Branch Influenza Virus 2014-09-05 Completed Universit y of Vaccine Quad IM 3+ 00:00:00 [facility] Pneumococcal 2014-09-05 Completed University o f Polysaccharide, 00:00:00 [place] [facility] ical PPSV23 (PNEUMOVAX) Branch Influenza Virus 2014-09-05 Completed Universit y of Vaccine Quad IM 3+ 00:00:00 [facility] Pneumococcal 2014-09-05 Completed University o f Polysaccharide, 00:00:00 [place] [facility] ical PPSV23 (PNEUMOVAX) Branch Influenza Virus 2014-09-05 Completed Universit y of Vaccine Quad IM 3+ 00:00:00 [facility] Pneumococcal 2014-09-05 Completed University o f Polysaccharide, 00:00:00 [place] [facility] ical PPSV23 (PNEUMOVAX) Branch Influenza Virus 2014-09-05 Completed Universit y of Vaccine Quad IM 3+ 00:00:00 [facility] Pneumococcal 2014-09-05 Completed University o f Polysaccharide, 00:00:00 [place] [facility] PPSV23 (PNEUMOVAX) Branch Influenza Virus 2014-09-05 Completed Universit y of Vaccine Quad IM 3+ 00:00:00 [facility] Pneumococcal 2014-09-05 Completed University o f Polysaccharide, 00:00:00 [place] [facility] PPSV23 (PNEUMOVAX) Branch Influenza Virus 2014-09-05 Completed Universit y of Vaccine Quad IM 3+ 00:00:00 [facility] Pneumococcal 2014-09-05 Completed University o f Polysaccharide, 00:00:00 [place] [facility] PPSV23 (PNEUMOVAX) Branch Influenza Virus 2014-09-05 Completed Universit y of Vaccine Quad IM 3+ 00:00:00 [facility] Pneumococcal 2014-09-05 Completed University o f Polysaccharide, 00:00:00 [place] [facility] PPSV23 (PNEUMOVAX) Branch Influenza Virus 2014-09-05 Completed Universit y of Vaccine Quad IM 3+ 00:00:00 [facility] Pneumococcal 2014-09-05 Completed University o f Polysaccharide, 00:00:00 [place] [facility] PPSV23 (PNEUMOVAX) Branch Influenza Virus 2014-09-05 Completed Universit y of Vaccine Quad IM 3+ 00:00:00 [facility] Pneumococcal 2014-09-05 Completed University o f Polysaccharide, 00:00:00 [place] [facility] PPSV23 (PNEUMOVAX) Branch Influenza Virus 2014-09-05 Completed Universit y of Vaccine Quad IM 3+ 00:00:00 [facility] Pneumococcal 2014-09-05 Completed University o f Polysaccharide, 00:00:00 [place] [facility] PPSV23 (PNEUMOVAX) Branch Influenza Virus 2014-09-05 Completed Universit y of Vaccine Quad IM 3+ 00:00:00 [facility] Pneumococcal 2014-09-05 Completed University o f Polysaccharide, 00:00:00 [place] [facility] PPSV23 (PNEUMOVAX) Branch Influenza Virus 2014-09-05 Completed Universit y of Vaccine Quad IM 3+ 00:00:00 [facility] Pneumococcal 2014-09-05 Completed University o f Polysaccharide, 00:00:00 [place] [facility] ical PPSV23 (PNEUMOVAX) Branch Influenza Virus 2014-09-05 Completed [facility] Vaccine Quad IM 3+ 00:00:00 [facility] Influenza Virus 2014-09-05 Completed [facility] Vaccine Quad IM 3+ 00:00:00 [facility] Pneumococcal 2014-09-05 Completed University o f Polysaccharide, 00:00:00 [place] [facility] PPSV23 (PNEUMOVAX) Branch Pneumococcal 2014-09-05 Completed University o f Polysaccharide, 00:00:00 [place] [facility] PPSV23 (PNEUMOVAX) Branch Influenza Virus 2014-09-05 Completed [facility]it [facility] of Vaccine Quad IM 3+ 00:00:00 [facility] Pneumococcal 2014-09-05 Completed University o f Polysaccharide, 00:00:00 [place] [facility] PPSV23 (PNEUMOVAX) Branch Influenza Virus 2014-09-05 Completed [facility]it [facility] of Vaccine Quad IM 3+ 00:00:00 [facility] Pneumococcal 2014-09-05 Completed University o f Polysaccharide, 00:00:00 [place] [facility] PPSV23 (PNEUMOVAX) Branch Influenza Virus 2014-09-05 Completed [facility]it [facility] of Vaccine Quad IM 3+ 00:00:00 [facility] Pneumococcal 2014-09-05 Completed [facility] o f Polysaccharide, 00:00:00 [place] [facility] PPSV23 (PNEUMOVAX) Branch Influenza Virus 2014-09-05 Completed [facility]it [facility] of Vaccine Quad IM 3+ 00:00:00 [facility] Vital Signs Vital Name Observation Time Observation Value Comments Source Systolic blood 2023-04-19 126 mm[Hg] University of pressure 15:37:00 [facility] Diastolic blood 2023-04-19 83 mm[Hg] University o f pressure 15:37:00 [facility] Heart rate 2023-04-19 94 /min University of 15:37:00 [facility] Respiratory rate 2023-04-19 18 /min University of 15:35:00 [facility] Body height 2023-04-19 177.8 cm University of 15:35:00 [facility] Body weight 2023-04-19 59.138 kg University of 15:35:00 [facility] BMI 2023-04-19 18.71 kg/m2 University of 15:35:00 [facility] Oxygen saturation 2023-04-19 94 /min University of in Arterial blood 15:35:00 [facility] by Pulse oximetry Branch Systolic blood 2023-03-01 143 mm[Hg] University of pressure 20:27:00 [facility] Diastolic blood 2023-03-01 87 mm[Hg] University o f pressure 20:27:00 [facility] Heart rate 2023-03-01 99 /min University of 20:27:00 [facility] Body height 2023-03-01 177.8 cm University of 20:27:00 [facility] Body weight 2023-03-01 57.153 kg University of 20:27:00 [facility] BMI 2023-03-01 18.08 kg/m2 University of 20:27:00 [facility] Oxygen saturation 2023-03-01 99 /min University of in Arterial blood 20:27:00 [place] [facility] Pulse oximetry [facility] Systolic blood 2023-02-18 144 mm[Hg] University of pressure 16:17:00 [facility] Diastolic blood 2023-02-18 68 mm[Hg] University o f pressure 16:17:00 [facility] Heart rate 2023-02-18 55 /min University of 16:17:00 [facility] Body temperature 2023-02-18 36.06 Tia University of 16:17:00 [facility] Respiratory rate 2023-02-18 18 /min University of 16:17:00 [facility] Oxygen saturation 2023-02-18 100 /min University of in Arterial blood 16:17:00 [facility] by Pulse oximetry Branch Body weight 2023-02-18 58.968 kg University of 07:50:00 [facility] BMI 2023-02-18 18.65 kg/m2 University of 07:50:00 [facility] Body height 2023-02-16 177.8 cm University of 00:31:00 [facility] Oxygen saturation 2023-02-07 99 /min [place] of in Arterial blood 19:29:00 [facility] by Pulse oximetry Branch Systolic blood 2023-02-07 103 mm[Hg] University of pressure 19:27:00 [facility] Diastolic blood 2023-02-07 75 mm[Hg] University o f pressure 19:27:00 [facility] Heart rate 2023-02-07 104 /min University of 19:27:00 [facility] Body temperature 2023-02-07 36.39 Tia University of 19:27:00 [facility] Respiratory rate 2023-02-07 22 /min University of 19:27:00 [facility] Body weight 2023-02-07 72.576 kg University of 19:27:00 [facility] BMI 2023-02-07 22.96 kg/m2 University of 19:27:00 [facility] Heart rate 2023-02-05 85 /min University of 20:17:00 [facility] Respiratory rate 2023-02-05 18 /min University of 20:17:00 [facility] Oxygen saturation 2023-02-05 100 /min University of in Arterial blood 20:17:00 [facility] by Pulse oximetry Branch Systolic blood 2023-02-05 98 mm[Hg] University of pressure 19:53:35 [facility] Diastolic blood 2023-02-05 71 mm[Hg] University o f pressure 19:53:35 [facility] Body temperature 2023-02-05 36.5 Tia University of 19:51:00 [facility] Body height 2023-02-05 177.8 cm University of 19:51:00 [facility] Body weight 2023-02-05 72.576 kg University of 19:51:00 [facility] BMI 2023-02-05 22.96 kg/m2 University of 19:51:00 [facility] Heart rate 2023-02-04 76 /min University of 20:31:00 [facility] Branch Respiratory rate 2023-02-04 18 /min University of 20:31:00 [facility] Oxygen saturation 2023-02-04 97 /min University of in Arterial blood 20:31:00 [facility] by Pulse oximetry Branch Systolic blood 2023-02-04 126 mm[Hg] University of pressure 20:15:00 [facility] Diastolic blood 2023-02-04 98 mm[Hg] University o f pressure 20:15:00 [facility] Body temperature 2023-02-04 36.83 Tia University of 20:15:00 [facility] Body weight 2023-02-04 72.576 kg University of 20:15:00 [facility] BMI 2023-02-04 22.96 kg/m2 University of 20:15:00 [facility] Systolic blood 2023-02-03 100 mm[Hg] University of pressure 23:00:00 [facility] Diastolic blood 2023-02-03 65 mm[Hg] University o f pressure 23:00:00 [facility] Heart rate 2023-02-03 115 /min University of 23:00:00 [facility] Respiratory rate 2023-02-03 20 /min University of 23:00:00 [facility] Oxygen saturation 2023-02-03 97 /min University of in Arterial blood 23:00:00 [facility] by Pulse oximetry Branch Body temperature 2023-02-03 36.72 Tia University of 22:44:00 [facility] Body weight 2023-02-03 72.576 kg University of 22:44:00 [facility] BMI 2023-02-03 22.96 kg/m2 University of 22:44:00 [facility] Systolic blood 2023-02-03 128 mm[Hg] University of pressure 20:02:00 [facility] Branch Diastolic blood 2023-02-03 81 mm[Hg] University o f pressure 20:02:00 [facility] Heart rate 2023-02-03 88 /min University of 20:02:00 [facility] Respiratory rate 2023-02-03 25 /min University of 20:02:00 [facility] Oxygen saturation 2023-02-03 94 /min University of in Arterial blood 20:02:00 [facility] by Pulse oximetry Branch Body temperature 2023-02-03 36.61 Tia University of 18:18:00 [facility] Body weight 2023-02-03 72.576 kg University of 17:41:00 [place] [facility] BMI 2023-02-03 22.96 kg/m2 University of 17:41:00 [facility] Heart rate 2023-02-02 107 /min University of 22:49:00 [facility] Respiratory rate 2023-02-02 20 /min University of 22:49:00 [facility] Oxygen saturation 2023-02-02 94 /min University of in Arterial blood 22:49:00 [facility] by Pulse oximetry Branch Systolic blood 2023-02-02 102 mm[Hg] University of pressure 22:32:00 [facility] Diastolic blood 2023-02-02 74 mm[Hg] University o f pressure 22:32:00 [facility] Body temperature 2023-02-02 35.83 Tia University of 21:58:32 [facility] Body height 2023-02-02 177.8 cm University of 21:54:00 [facility] Body weight 2023-02-02 72.576 kg University of 21:54:00 [facility] BMI 2023-02-02 22.96 kg/m2 University of 21:54:00 [facility] Systolic blood 2023-01-31 140 mm[Hg] University of pressure 21:00:00 [facility] Diastolic blood 2023-01-31 72 mm[Hg] University o f pressure 21:00:00 [facility] Heart rate 2023-01-31 89 /min University of 21:00:00 [facility] Respiratory rate 2023-01-31 20 /min University of 21:00:00 [facility] Oxygen saturation 2023-01-31 97 /min University of in Arterial blood 21:00:00 [facility] by Pulse oximetry Branch Body temperature 2023-01-31 36.72 Tia University of 18:50:00 [facility] Body weight 2023-01-31 72.576 kg University of 18:50:00 [facility] BMI 2023-01-31 22.96 kg/m2 University of 18:50:00 [facility] Systolic blood 2023-01-31 130 mm[Hg] University of pressure 16:09:00 [facility] Diastolic blood 2023-01-31 72 mm[Hg] University o f pressure 16:09:00 [facility] Heart rate 2023-01-31 99 /min University of 16:09:00 [facility] Body temperature 2023-01-31 36.39 Tia University of 16:09:00 [facility] Respiratory rate 2023-01-31 18 /min University of 16:09:00 [facility] Body height 2023-01-31 177.8 cm University of 16:09:00 [facility] Body weight 2023-01-31 72.576 kg University of 16:09:00 [facility] BMI 2023-01-31 22.96 kg/m2 University of 16:09:00 [facility] Oxygen saturation 2023-01-31 97 /min University of in Arterial blood 16:09:00 [facility] by Pulse oximetry Branch Systolic blood 2023-01-31 134 mm[Hg] University of pressure 14:50:00 [facility] Diastolic blood 2023-01-31 72 mm[Hg] University o f pressure 14:50:00 [facility] Heart rate 2023-01-31 85 /min University of 14:50:00 [facility] Body temperature 2023-01-31 36.39 Tia University of 14:50:00 [facility] Respiratory rate 2023-01-31 20 /min University of 14:50:00 [facility] Body weight 2023-01-31 72.576 kg University of 14:50:00 [facility] BMI 2023-01-31 22.96 kg/m2 University of 14:50:00 [facility] Oxygen saturation 2023-01-31 100 /min University of in Arterial blood 14:50:00 [facility] by Pulse oximetry Branch Respiratory rate 2023-01-29 20 /min University of 13:40:00 [facility] Oxygen saturation 2023-01-29 100 /min University of in Arterial blood 13:40:00 [facility] by Pulse oximetry Branch Systolic blood 2023-01-29 123 mm[Hg] University of pressure 13:06:00 [place] [facility] Diastolic blood 2023-01-29 76 mm[Hg] University o f pressure 13:06:00 [facility] Heart rate 2023-01-29 97 /min University of 13:06:00 [facility] Body temperature 2023-01-29 36.61 Tia University of 13:06:00 [facility] Body height 2023-01-29 177.8 cm University of 13:06:00 [facility] Body weight 2023-01-29 72.576 kg University of 13:06:00 [facility] BMI 2023-01-29 22.96 kg/m2 University of 13:06:00 [facility] Systolic blood 2023-01-27 115 mm[Hg] University of pressure 11:47:00 [facility] Diastolic blood 2023-01-27 75 mm[Hg] University o f pressure 11:47:00 [facility] Heart rate 2023-01-27 100 /min University of 11:47:00 [facility] Body temperature 2023-01-27 35.78 Tia University of 11:47:00 [facility] Respiratory rate 2023-01-27 28 /min University of 11:47:00 [facility] Oxygen saturation 2023-01-27 99 /min [place] of in Arterial blood 11:47:00 [facility] by Pulse oximetry Branch Body height 2023-01-27 177.8 cm University of 09:57:00 [facility] Body weight 2023-01-27 72.576 kg University of 09:57:00 [facility] BMI 2023-01-27 22.96 kg/m2 University of 09:57:00 [facility] Heart rate 2023-01-24 88 /min University of 20:55:00 [facility] Oxygen saturation 2023-01-24 93 /min University of in Arterial blood 20:55:00 [facility] by Pulse oximetry Branch Respiratory rate 2023-01-24 22 /min University of 20:52:00 [facility] Systolic blood 2023-01-24 128 mm[Hg] University of pressure 20:30:00 [facility] Diastolic blood 2023-01-24 69 mm[Hg] University o f pressure 20:30:00 [facility] Body temperature 2023-01-24 36.67 Tia University of 17:24:00 [facility] Body height 2023-01-24 177.8 cm University of 17:24:00 [facility] Body weight 2023-01-24 72.576 kg University of 17:24:00 [facility] BMI 2023-01-24 22.96 kg/m2 University of 17:24:00 [facility] Systolic blood 2023-01-24 129 mm[Hg] University of pressure 01:00:00 [facility] Diastolic blood 2023-01-24 76 mm[Hg] University o f pressure 01:00:00 [facility] Heart rate 2023-01-24 77 /min University of 01:00:00 [place] [facility] Respiratory rate 2023-01-24 18 /min University of 01:00:00 [facility] Oxygen saturation 2023-01-24 99 /min University of in Arterial blood 01:00:00 [place] [facility] Pulse oximetry [facility] Body temperature 2023-01-24 35.61 Tia warm blankets University of 00:02:00 applied [facility] Body weight 2023-01-24 58.968 kg University of 00:02:00 [facility] BMI 2023-01-24 18.65 kg/m2 University of 00:02:00 [facility] Heart rate 2023-01-22 93 /min University of 23:46:00 [facility] Respiratory rate 2023-01-22 20 /min University of 23:46:00 [facility] Oxygen saturation 2023-01-22 100 /min University of in Arterial blood 23:46:00 [facility] by Pulse oximetry Branch Systolic blood 2023-01-22 146 mm[Hg] University of pressure 23:21:00 [facility] Diastolic blood 2023-01-22 93 mm[Hg] University o f pressure 23:21:00 [facility] Body temperature 2023-01-22 36.72 Tia University of 23:21:00 [facility] Body weight 2023-01-22 58.968 kg University of 23:21:00 [facility] BMI 2023-01-22 18.65 kg/m2 University of 23:21:00 [facility] Heart rate 2023-01-21 84 /min University of 21:57:00 [facility] Respiratory rate 2023-01-21 18 /min University of 21:57:00 [facility] Oxygen saturation 2023-01-21 97 /min [facility] of in Arterial blood 21:57:00 [place] [facility] Pulse oximetry [facility] Systolic blood 2023-01-21 103 mm[Hg] University of pressure 21:00:00 [facility] Diastolic blood 2023-01-21 61 mm[Hg] University o f pressure 21:00:00 [facility] Body temperature 2023-01-21 36.56 Tia University of 19:24:00 [facility] Body weight 2023-01-21 58.968 kg University of 19:24:00 [facility] BMI 2023-01-21 18.65 kg/m2 University of 19:24:00 [facility] Systolic blood 2023-01-19 111 mm[Hg] University of pressure 21:00:00 [facility] Diastolic blood 2023-01-19 64 mm[Hg] University o f pressure 21:00:00 [facility] Heart rate 2023-01-19 85 /min University of 21:00:00 [facility] Body temperature 2023-01-19 36.56 Tia University of 21:00:00 [facility] Respiratory rate 2023-01-19 17 /min University of 21:00:00 [facility] Oxygen saturation 2023-01-19 98 /min University of in Arterial blood 21:00:00 [facility] Pulse oximetry Branch Body height 2023-01-19 177.8 cm University of 06:22:00 [facility] Body weight 2023-01-19 58.968 kg University of 06:22:00 [facility] BMI 2023-01-19 18.65 kg/m2 University of 06:22:00 [facility] Systolic blood 2023-01-17 116 mm[Hg] University of pressure 12:05:00 [facility] Diastolic blood 2023-01-17 69 mm[Hg] University o f pressure 12:05:00 [facility] Heart rate 2023-01-17 100 /min University of 12:05:00 [facility] Respiratory rate 2023-01-17 24 /min University of 12:05:00 [facility] Oxygen saturation 2023-01-17 93 /min [facility] of in Arterial blood 12:05:00 [facility] by Pulse oximetry Branch Body temperature 2023-01-17 35.39 Tia University of 10:59:00 [facility] Body height 2023-01-17 177.8 cm University of 10:59:00 [facility] Body weight 2023-01-17 58.968 kg University of 10:59:00 [facility] BMI 2023-01-17 18.65 kg/m2 University of 10:59:00 [facility] Systolic blood 2023-01-07 122 mm[Hg] University of pressure 19:38:00 [facility] Diastolic blood 2023-01-07 86 mm[Hg] University o f pressure 19:38:00 [facility] Heart rate 2023-01-07 110 /min University of 19:38:00 [facility] Respiratory rate 2023-01-07 16 /min University of 19:38:00 [facility] Body height 2023-01-07 177.8 cm University of 19:38:00 [facility] Body weight 2023-01-07 59.966 kg University of 19:38:00 [facility] BMI 2023-01-07 18.97 kg/m2 University of 19:38:00 [facility] Systolic blood 2022-12-26 118 mm[Hg] University of pressure 18:00:00 [facility] Diastolic blood 2022-12-26 79 mm[Hg] University o f pressure 18:00:00 [facility] Heart rate 2022-12-26 93 /min University of 18:00:00 [facility] Respiratory rate 2022-12-26 20 /min University of 18:00:00 [facility] Oxygen saturation 2022-12-26 95 /min University of in Arterial blood 18:00:00 [facility] by Pulse oximetry Branch Body temperature 2022-12-26 36.11 Tia University of 15:49:00 [facility] Body height 2022-12-26 177.8 cm University of 15:49:00 [facility] Body weight 2022-12-26 72.576 kg University of 15:49:00 [facility] BMI 2022-12-26 22.96 kg/m2 University of 15:49:00 [facility] Respiratory rate 2022-12-12 18 /min University of 16:45:00 [facility] Oxygen saturation 2022-12-12 99 /min University of in Arterial blood 16:45:00 [facility] by Pulse oximetry Branch Systolic blood 2022-12-12 135 mm[Hg] University of pressure 16:11:00 [facility] Diastolic blood 2022-12-12 80 mm[Hg] University o f pressure 16:11:00 [facility] Heart rate 2022-12-12 77 /min University of 16:11:00 [facility] Body temperature 2022-12-12 35.89 Tia University of 16:11:00 [facility] Body weight 2022-12-12 65 kg University of 08:50:00 [facility] BMI 2022-12-12 20.56 kg/m2 University of 08:50:00 [facility] Body height 2022-12-11 177.8 cm University of 04:23:00 [facility] Heart rate 2022-12-04 95 /min University of 12:33:00 [facility] Respiratory rate 2022-12-04 17 /min University of 12:33:00 [facility] Oxygen saturation 2022-12-04 98 /min [facility] of in Arterial blood 12:33:00 [place] [facility] Pulse oximetry [facility] Systolic blood 2022-12-04 125 mm[Hg] University of pressure 12:20:00 [facility] Diastolic blood 2022-12-04 74 mm[Hg] University o f pressure 12:20:00 [facility] Body temperature 2022-12-04 36.61 Tia University of 12:20:00 [facility] Body height 2022-12-02 177.8 cm University of 05:16:00 [facility] Body weight 2022-12-02 72.576 kg University of 05:16:00 [facility] BMI 2022-12-02 22.96 kg/m2 University of 05:16:00 [facility] Systolic blood 2022-12-01 114 mm[Hg] University of pressure 13:00:00 [facility] Diastolic blood 2022-12-01 78 mm[Hg] University o f pressure 13:00:00 [facility] Heart rate 2022-12-01 88 /min University of 13:00:00 [facility] Respiratory rate 2022-12-01 20 /min University of 13:00:00 [facility] Oxygen saturation 2022-12-01 98 /min University of in Arterial blood 13:00:00 [facility] by Pulse oximetry Branch Body temperature 2022-12-01 36.67 [place] University of 10:13:00 [facility] Body height 2022-12-01 177.8 cm University of 10:13:00 [facility] Body weight 2022-12-01 72.576 kg University of 10:13:00 [facility] BMI 2022-12-01 22.96 kg/m2 University of 10:13:00 [facility] Systolic blood 2022-11-28 154 mm[Hg] University of pressure 17:00:00 [facility] Diastolic blood 2022-11-28 106 mm[Hg] University o f pressure 17:00:00 [facility] Heart rate 2022-11-28 87 /min University of 17:00:00 [facility] Respiratory rate 2022-11-28 23 /min University of 17:00:00 [facility] Oxygen saturation 2022-11-28 96 /min University of in Arterial blood 17:00:00 [facility] by Pulse oximetry Branch Body temperature 2022-11-28 36.78 Tia University of 16:00:00 [facility] Body weight 2022-11-27 67.132 kg University of 12:00:00 [facility] BMI 2022-11-27 21.24 kg/m2 University of 12:00:00 [facility] Body height 2022-11-27 177.8 cm University of 08:39:00 [facility] Systolic blood 2022-11-19 152 mm[Hg] University of pressure 10:48:00 [facility] Diastolic blood 2022-11-19 88 mm[Hg] University o f pressure 10:48:00 [facility] Heart rate 2022-11-19 92 /min University of 10:48:00 [facility] Respiratory rate 2022-11-19 16 /min University of 10:48:00 [facility] Oxygen saturation 2022-11-19 98 /min [facility] of in Arterial blood 10:48:00 [facility] by Pulse oximetry Branch Body temperature 2022-11-19 36.22 Tia University of 08:20:00 [facility] Body height 2022-11-19 177.8 cm University of 08:20:00 [facility] Body weight 2022-11-19 67.132 kg University of 08:20:00 [facility] BMI 2022-11-19 21.24 kg/m2 University of 08:20:00 [facility] Systolic blood 2022-11-19 152 mm[Hg] [facility] of pressure 02:18:57 [facility] Diastolic blood 2022-11-19 91 mm[Hg] University o f pressure 02:18:57 [facility] Heart rate 2022-11-19 109 /min University of 02:18:57 [facility] Respiratory rate 2022-11-19 22 /min University of 02:18:57 [facility] Oxygen saturation 2022-11-19 95 /min [facility] of in Arterial blood 02:18:57 [place] [facility] Pulse oximetry [facility] Body temperature 2022-11-19 36.78 Tia [facility] of 02:17:11 [facility] Body height 2022-11-19 177.8 cm University of 00:52:00 [facility] Body weight 2022-11-19 67.132 kg University of 00:52:00 [facility] BMI 2022-11-19 21.24 kg/m2 University of 00:52:00 [facility] Heart rate 2022-11-11 75 /min University of 17:35:00 [facility] Respiratory rate 2022-11-11 18 /min University of 17:35:00 [facility] Oxygen saturation 2022-11-11 95 /min University of in Arterial blood 17:35:00 [facility] by Pulse oximetry Branch Systolic blood 2022-11-11 130 mm[Hg] University of pressure 17:25:00 [facility] Diastolic blood 2022-11-11 71 mm[Hg] University o f pressure 17:25:00 [facility] Body temperature 2022-11-11 35.94 Tia [facility] 17:25:00 [facility] Body weight 2022-11-11 77.52 kg University of 09:34:00 [facility] BMI 2022-11-11 24.52 kg/m2 University of 09:34:00 [facility] Body height 2022-11-09 177.8 cm University of 19:30:00 [facility] Systolic blood 2020-12-29 96 mm[Hg] University of pressure 15:24:00 [facility] Diastolic blood 2020-12-29 66 mm[Hg] University o f pressure 15:24:00 [facility] Heart rate 2020-12-29 71 /min University of 15:24:00 [facility] Body temperature 2020-12-29 36.33 Tia [facility] 15:24:00 [facility] Body weight 2020-12-29 72.576 kg University of 15:24:00 [facility] BMI 2020-12-29 22.96 kg/m2 University of 15:24:00 [facility] Oxygen saturation 2020-12-29 95 /min University of in Arterial blood 15:24:00 [facility] lucho by Pulse oximetry Branch Systolic blood 2020-12-18 117 mm[Hg] University of pressure 19:07:00 [facility] Diastolic blood 2020-12-18 77 mm[Hg] University o f pressure 19:07:00 [facility] Heart rate 2020-12-18 77 /min University of 19:07:00 [facility] Body temperature 2020-12-18 36.22 Tia [facility] 19:07:00 [facility] Respiratory rate 2020-12-18 18 /min University of 19:07:00 [facility] Body height 2020-12-18 177.8 cm University of 19:07:00 [facility] Body weight 2020-12-18 73.211 kg University of 19:07:00 [facility] BMI 2020-12-18 23.16 kg/m2 University of 19:07:00 [facility] Systolic blood 2020-12-12 109 mm[Hg] University of pressure 18:00:00 [facility] Diastolic blood 2020-12-12 74 mm[Hg] University o f pressure 18:00:00 [facility] Heart rate 2020-12-12 78 /min University of 18:00:00 [facility] Respiratory rate 2020-12-12 20 /min University of 18:00:00 [facility] Oxygen saturation 2020-12-12 96 /min [facility] Arterial blood 18:00:00 [facility] by Pulse oximetry [place] Body temperature 2020-12-12 37.28 Tia [facility] of 16:33:00 [facility] Body height 2020-12-12 177.8 cm University of 16:33:00 [facility] Body weight 2020-12-12 70.308 kg University of 16:33:00 [facility] BMI 2020-12-12 22.24 kg/m2 University of 16:33:00 [facility] Systolic blood 2020-12-08 125 mm[Hg] University of pressure 18:55:00 [facility] Diastolic blood 2020-12-08 82 mm[Hg] University o f pressure 18:55:00 [facility] Heart rate 2020-12-08 75 /min University of 18:55:00 [facility] Body temperature 2020-12-08 36.56 Tia [facility] of 18:55:00 [facility] Respiratory rate 2020-12-08 16 /min University of 18:55:00 [facility] Body height 2020-12-08 177.8 cm University of 18:55:00 [facility] Body weight 2020-12-08 73.12 kg University of 18:55:00 [facility] BMI 2020-12-08 23.13 kg/m2 University of 18:55:00 [facility] Systolic blood 2019-05-04 127 mm[Hg] University of pressure 04:21:00 [facility] Diastolic blood 2019-05-04 86 mm[Hg] University o f pressure 04:21:00 [facility] Heart rate 2019-05-04 99 /min University 04:21:00 [facility] Respiratory rate 2019-05-04 26 /min University of 04:21:00 [facility] Body height 2019-05-04 177.8 cm University of 04:21:00 [facility] Body weight 2019-05-04 72.576 kg University of 04:21:00 [facility] BMI 2019-05-04 22.96 kg/m2 University 04:21:00 [facility] Oxygen saturation 2019-05-04 99 /min [place] of in Arterial blood 04:21:00 [place] [facility] by Pulse oximetry Branch Systolic blood 2019-05-04 127 mm[Hg] University of pressure 04:21:00 [facility] Diastolic blood 2019-05-04 86 mm[Hg] University o f pressure 04:21:00 [facility] Heart rate 2019-05-04 99 /min University 04:21:00 [facility] Respiratory rate 2019-05-04 26 /min University 04:21:00 [facility] Body height 2019-05-04 177.8 cm University 04:21:00 [facility] Body weight 2019-05-04 72.576 kg [facility] 04:21:00 [facility] BMI 2019-05-04 22.96 kg/m2 University 04:21:00 [facility] Oxygen saturation 2019-05-04 99 /min [facility] in Arterial blood 04:21:00 [place] [facility] by Pulse oximetry Branch Procedures Procedure Date / Time Performing Clinician Source Performed [id number] 2023-03-15 00:00:00 LISA [facility] CONSENT/REFUSAL FOR 2023-03-01 19:49:30 [facility] Un[facility]igned, No [facility] Name Medical Branch TRANSTHORACIC ECHO (TTE) 2023-02-16 13:56:56 Dedrick Toth [facility] COMPLETE W/ CONTRAST Medical Bra nch TROPONIN I 2023-02-16 11:32:00 Dedrick Toth [facility] COMP. METABOLIC PANEL 2023-02-16 11:32:00 Dedrick Toth [facility] ([id number]) Medical [place] CBC WITH DIFF 2023-02-16 11:32:00 Dedrick Toth [facility] N-TERMINAL PRO-BNP 2023-02-16 11:32:00 Ded[facility]oth [facility] URINALYSIS 2023-02-15 21:18:00 Francisca Bryant [facility] HB ECG ROUTINE & RHYTHM 2023-02-15 20:15:35 Francisca Bryant [facility] XR CHEST 1 VW 2023-02-15 20:14:30 Francisca Bryant [facility] AC PANEL 21 + LACTIC 2023-02-15 20:02:00 Francisca Bryant [facility] ACID [facility] MAGNESIUM 2023-02-15 20:01:00 Francisca Bryant [facility] TROPONIN I 2023-02-15 20:01:00 Francisca Bryant [facility] COMP. METABOLIC PANEL 2023-02-15 20:01:00 Francisca Bryant [facility] ([id number]) [facility] CBC WITH DIFF 2023-02-15 20:01:00 Francisca Bryant [facility] ASSIGNMENT OF BENEFITS 2023-02-07 19:52:07 Doctor Unassigned, No [facility] Name [facility] CONSENT/REFUSAL FOR 2023-02-07 19:51:03 [facility]igned, [facility] CONSENT/REFUSAL FOR 2023-02-04 19:51:56 Doctor [facility]igned, [facility] TROPONIN I 2023-01-31 20:21:00 Rachael Flowers [facility] COMP. METABOLIC PANEL 2023-01-31 20:21:00 Rachael Flowers [facility] ([id number]) [facility] ETHANOL 2023-01-31 20:21:00 Rachael Flowers [facility] CBC WITH DIFF 2023-01-31 20:21:00 Rachael Flowers [facility] N-TERMINAL PRO-BNP 2023-01-31 20:21:[address] [facility] CONSENT/REFUSAL FOR 2023-01-31 18:39:05 Doctor Unassigned, No [facility] [place] [facility] AND TREATMENT Name [facility] CONSENT/REFUSAL FOR 2023-01-31 15:54:08 Doctor Unassigned, No [facility] [place] DIAGNOSIS AND TREATMENT Name [facility] CONSENT/REFUSAL FOR 2023-01-31 14:29:18 Doctor Unassigned, No [facility] Name [facility] ACUTE CARE VENOUS BLOOD 2023-01-27 10:45:00 Bessie Oswald [facility] GAS [facility] TROPONIN I 2023-01-27 10:16:00 Bessie Oswald [facility] BASIC METABOLIC PANEL 2023-01-27 10:16:00 Bessie Oswald [facility] (NA, K, CL, CO2, Medical Branch GLUCOSE, BUN, CREATININE, CA) CBC WITH DIFF 2023-01-27 10:16:00 Bessie Oswald [facility] N-TERMINAL PRO-BNP 2023-01-27 10:16:00 Bessie Oswald [facility] URINALYSIS 2023-01-24 20:23:00 Stephanie Almonte [facility] CT HEAD WO CONTRAST 2023-01-24 19:38:00 Stephanie Almonte [facility] AC ABG + LACTIC ACID 2023-01-24 18:37:00 Stephanie Almonte [facility] AMMONIA, PLASMA 2023-01-24 18:19:00 Stephanie Almonte [facility] RAPID STREP SCREEN FOR 2023-01-24 18:19:00 Stephanie Almonte [facility] A [facility] COVID-19 (ID NOW RAPID 2023-01-24 18:19:00 Stephanie Almonte [facility] TESTING) Medical Branch TROPONIN I 2023-01-24 17:52:00 Stephanie [facility]monte [facility] COMP. METABOLIC PANEL 2023-01-24 17:52:00 Stephanie Almonte [facility] ([id number]) Medical Branch ETHANOL 2023-01-24 17:52:00 Stephanie [facility]monte [facility] CBC WITH DIFF 2023-01-24 17:52:00 Stephanie [facility]monte [facility] N-TERMINAL PRO-BNP 2023-01-24 17:52:00 Stephanie [facility]te [facility] COMP. METABOLIC PANEL 2023-01-21 20:58:00 Hong [facility] ([id number]) [facility] Center Clinic TROPONIN I 2023-01-21 20:05:00 Singer [facility] CBC WITH DIFF 2023-01-21 20:05:00 [facility] N-TERMINAL PRO-BNP 2023-01-21 20:05:00 [facility]EL 21 + LACTIC 2023-01-19 08:31:00 Lew [facility] ACID Medical Center Clinic D-DIMER 2023-01-19 08:17:[address] [facility] BASIC METABOLIC PANEL 2023-01-19 08:15:00 Iza Varma [facility] (NA, K, CL, CO2, Medical Branch GLUCOSE, BUN, CREATININE, CA) CBC WITH DIFF 2023-01-19 08:15:00 Iza Varma [facility] N-TERMINAL PRO-BNP 2023-01-19 08:15:00 Lew [facility] EKG-12 LEAD 2023-01-17 12:23:30 Marisol Devlin [facility] XR CHEST 1 VW 2023-01-17 11:25:05 Marisol Devlin [facility] TROPONIN I 2023-01-17 11:04:00 Marisol Devlin [facility] COMP. METABOLIC PANEL 2023-01-17 11:04:00 Marisol Devlin [facility] ([id number]) [facility] CBC WITH DIFF 2023-01-17 11:04:00 Marisol Devlin [facility] N-TERMINAL PRO-BNP 2023-01-17 11:04:[address] [facility] COMP. METABOLIC PANEL 2022-12-26 17:23:00 Iza Varma [facility] ([id number]) [facility] XR CHEST 1 VW 2022-12-26 16:39:[facility] URINE [facility] (IMMUNOASSAY) 2022-12-26 16:29:00 [facility] DRUG [facility] SCREEN URINALYSIS 2022-12-26 16:29:00 Iza Varma [facility] CBC WITH DIFF 2022-12-26 16:28:00 Varma, [facility] MAGNESIUM 2022-12-12 08:55:00 [facility] BASIC METABOLIC PANEL 2022-12-12 08:55:00 [facility] (NA, K, CL, CO2, [facility] GLUCOSE, BUN, CREATININE, CA) LIPID PANEL 2022-12-12 08:55:00 [facility] ([id number])(TOTAL [facility] CHOLESTEROL, TRIGLYCERIDES, HDL) N-TERMINAL PRO-BNP 2022-12-12 08:55:00 [facility]UM 2022-12-11 08:30:00 Dedrick Toth [facility] OSMOLALITY, SERUM OR 2022-12-11 08:30:00 Dedrick Toth [facility] PLASMA [facility] Center [facility] FREE T4 2022-12-11 08:30:00 Dedrick Toth [facility] BASIC METABOLIC PANEL 2022-12-11 08:30:00 Dedrick Toth [facility] (NA, K, CL, CO2, [facility] GLUCOSE, BUN, CREATININE, CA) CBC WITH DIFF 2022-12-11 08:30:00 Dedrick Toth [facility] N-TERMINAL PRO-BNP 2022-12-11 08:30:00 [facility] OSMOLALITY URINE 2022-12-11 03:24:00 Dedrick Toth [facility] SODIUM, URINE RANDOM 2022-12-11 03:24:00 Dedrick Toth [facility] URINALYSIS 2022-12-11 01:15:00 Singer [facility] HB ECG ROUTINE & RHYTHM 2022-12-11 00:38:04 Singer [facility] CT HEAD WO CONTRAST 2022-12-11 00:32:[address] [facility] XR CHEST 1 VW 2022-12-11 00:29:20 Singer [facility] TROPONIN I 2022-12-11 00:08:00 Singer [facility] COMP. METABOLIC PANEL 2022-12-11 00:08:00 Singer [facility] ([id number]) [facility] ETHANOL 2022-12-11 00:08:00 Singer [facility] CBC WITH DIFF 2022-12-11 00:08:00 Singer [facility] N-TERMINAL PRO-BNP 2022-12-11 00:08:[address] [facility] LACTIC ACID WHOLE BLOOD 2022-12-11 00:03:00 Singer [facility] AUTHORIZATION FOR 2022-12-09 05:01:00 Doctor Unassigned, No [facility] RELEASE OF PHI Name Medical Branch BASIC METABOLIC PANEL 2022-12-04 10:43:00 Ben [facility] (NA, K, CL, CO2, Medical Branch GLUCOSE, BUN, CREATININE, CA) CBC WITH DIFF 2022-12-04 10:43:00 Ben [facility] OSMOLALITY URINE 2022-12-03 17:05:00 Sudhakar De Santiago [facility] Medical [place] SODIUM, URINE RANDOM 2022-12-03 17:05:00 Sudhakar De Santiago [facility] [place] [facility] MAGNESIUM 2022-12-03 10:20:00 [facility] BASIC METABOLIC PANEL 2022-12-03 10:20:00 [facility] (NA, K, CL, CO2, Medical Branch GLUCOSE, BUN, CREATININE, CA) CBC WITH DIFF 2022-12-03 10:20:00 [facility] BASIC METABOLIC PANEL 2022-12-02 05:27:00 Carlo Maki [facility] (NA, K, CL, CO2, Medical Branch GLUCOSE, BUN, CREATININE, CA) CONSENT/REFUSAL FOR 2022-12-02 05:08:30 Doctor Unassigned, No [facility] Name [facility] Clinic HOSPITAL ADMISSION 2022-12-02 05:01:00 Doctor Unassigned, No [facility] Name [facility] COVID-19 (ID NOW RAPID 2022-12-01 13:01:00 Ernesto Piper [facility] TESTING) Medical Branch XR CHEST 1 VW 2022-12-01 12:40:25 Marisol Devlin [facility] EKG-12 LEAD 2022-12-01 12:17:26 Marisol Devlin [facility] ACUTE CARE ARTERIAL 2022-12-01 12:06:00 Marisol Devlin [facility] BLOOD GAS Medical Branch TROPONIN I 2022-12-01 11:51:00 Marisol Devlin [facility] BASIC METABOLIC PANEL 2022-12-01 11:51:00 Marisol Devlin [facility] (NA, K, CL, CO2, Medical Branch GLUCOSE, BUN, CREATININE, CA) CBC WITH DIFF 2022-12-01 11:51:00 Marisol Devlin [facility] Medical [place] BASIC METABOLIC PANEL 2022-11-28 16:51:00 Leila Chapa [facility] (NA, K, CL, CO2, Medical Branch GLUCOSE, BUN, CREATININE, CA) URIC ACID 2022-11-28 08:14:00 Reyna [facility] THYROID STIMULATING 2022-11-28 08:14:00 Reyna [facility] HORMONE [facility] BASIC METABOLIC PANEL 2022-11-28 08:14:00 Leila Chapa [facility] (NA, K, CL, CO2, Medical Branch GLUCOSE, BUN, CREATININE, CA) CBC WITH DIFF 2022-11-28 08:14:00 María Diaz [facility] BASIC METABOLIC PANEL 2022-11-28 04:16:00 María Diaz [facility] (NA, K, CL, CO2, Medical Branch GLUCOSE, BUN, CREATININE, CA) BASIC METABOLIC PANEL 2022-11-28 00:33:00 Leila Chapa [facility] (NA, K, CL, CO2, Medical Branch GLUCOSE, BUN, CREATININE, CA) BASIC METABOLIC PANEL 2022-11-27 19:55:00 María Diaz [facility] (NA, K, CL, CO2, Medical Branch GLUCOSE, BUN, CREATININE, CA) MRSA / MSSA SCREEN BY 2022-11-27 09:21:00 María Diaz [facility] OSMOLALITY, SERUM OR 2022-11-27 09:10:00 María Diaz [facility] PLASMA Medical Center Clinic OSMOLALITY URINE 2022-11-27 09:04:00 María Diaz [facility] BASIC METABOLIC PANEL 2022-11-27 09:04:00 María Diaz [facility] (NA, K, CL, CO2, Medical Branch GLUCOSE, BUN, CREATININE, CA) URINE DRUG (IMMUNOASSAY) 2022-11-27 09:04:00 [facility] SCREEN URINALYSIS 2022-11-27 09:04:00 María Diaz [facility] CREATININE, URINE RANDOM 2022-11-27 09:04:00 María Diaz [facility] SODIUM, URINE RANDOM 2022-11-27 09:04:00 María [facility] XR CHEST 1 VW 2022-11-27 06:15:54 Bessie Oswald [facility] MAGNESIUM 2022-11-27 05:33:00 María Diaz [facility] TROPONIN I 2022-11-27 05:33:00 Bessie Oswald [facility] COMP. METABOLIC PANEL 2022-11-27 05:33:00 Bessie Oswald [facility] ([id number]) Medical Branch ETHANOL 2022-11-27 05:33:00 Bessie Oswald [facility] CBC WITH DIFF 2022-11-27 05:33:00 Bessie Oswald [facility] GLYCOSYLATED HEMOGLOBIN 2022-11-27 05:33:00 Leila Chapa [facility] (A1C) Medical Center Clinic N-TERMINAL PRO-BNP 2022-11-27 05:33:00 Bessie Oswald [facility] HB ECG ROUTINE & RHYTHM 2022-11-27 05:31:54 Bessie Oswald [facility] STRIP [facility] COMP. METABOLIC PANEL 2022-11-19 08:44:00 Iza Varma [facility] ([id number]) [facility] CBC WITH DIFF 2022-11-19 08:44:00 Iza Varma [facility] N-TERMINAL PRO-BNP 2022-11-19 08:44:00 Iza Varma [facility] BASIC METABOLIC PANEL 2022-11-11 10:52:00 Iza Eden [facility] (NA, K, CL, CO2, Medical Branch GLUCOSE, BUN, CREATININE, CA) CBC WITH DIFF 2022-11-11 10:52:[address] [facility] BASIC METABOLIC PANEL 2022-11-11 02:16:00 [facility] (NA, K, CL, CO2, Medical Branch GLUCOSE, BUN, CREATININE, CA) BASIC METABOLIC PANEL 2022-11-10 22:45:00 Guanako [facility] (NA, K, CL, CO2, Medical Branch GLUCOSE, BUN, CREATININE, CA) BASIC METABOLIC PANEL 2022-11-10 17:27:00 [facility] (NA, K, CL, CO2, Medical Branch GLUCOSE, BUN, CREATININE, CA) BASIC METABOLIC PANEL 2022-11-10 11:49:00 [facility] (NA, K, CL, CO2, Medical Branch GLUCOSE, BUN, CREATININE, CA) MAGNESIUM 2022-11-10 07:14:00 [facility] BASIC METABOLIC PANEL 2022-11-10 07:14:00 [facility] (NA, K, CL, CO2, Medical Branch GLUCOSE, BUN, CREATININE, CA) CBC WITH DIFF 2022-11-10 07:14:00 [facility] XR CHEST 1 VW 2022-11-09 07:53:00 Marisol Devlin [facility] LIPASE 2022-11-09 07:53:00 aMrisol Devlin [facility] TROPONIN I 2022-11-09 07:53:00 Marisol Devlin [facility] COMP. METABOLIC PANEL 2022-11-09 07:53:00 Marisol Devlin [facility] ([id number]) [facility] Center Clinic CBC WITH DIFF 2022-11-09 07:53:00 Marisol Devlin [facility] N-TERMINAL PRO-BNP 2022-11-09 07:53:[address] [facility] ACUTE CARE ARTERIAL 2022-11-09 07:50:00 Marisol Devlin [facility] BLOOD GAS [facility] HB ECG ROUTINE & RHYTHM 2022-11-09 07:39:47 Marisol Devlin Uni [facility] ASSIGNMENT OF BENEFITS 2021-05-20 19:26:54 Doctor Unassigned, No [facility] Name [facility] POCT URINALYSIS AUTO 2020-12-18 19:04:00 Gokul [facility] CT ABDOMEN PELVIS W 2020-12-12 17:25:03 [facility] BASIC METABOLIC PANEL 2020-12-12 16:47:00 Francisca Bryant [facility] [place] (NA, K, CL, CO2, Medical Branch GLUCOSE, BUN, CREATININE, CA) CBC WITH DIFF 2020-12-12 16:47:00 Francisca Bryant [facility] URINALYSIS 2020-12-12 16:47:00 Francisca Bryant [facility] NOTICE OF PRIVACY 2020-12-12 16:28:57 Doctor Unassigned, No [facility] ersity [facility] Branch CONSENT/REFUSAL FOR 2020-12-12 16:28:23 Doctor Unassigned, No [facility] [place] DIAGNOSIS AND TREATMENT Name [facility] POCT URINALYSIS AUTO 2020-12-08 18:56:00 Jeanette Mcdaniel [facility] CONSENT/REFUSAL FOR 2020-12-08 18:26:17 Doctor Unassigned, No [facility] Medical Branch ASSIGNMENT OF BENEFITS 2020-12-08 18:25:58 Doctor Unassigned, No [facility] Branch AUTHORIZATION FOR 2020-02-20 05:01:00 Doctor Unassigned, No [facility] RELEASE OF PHI [facility] NOTICE OF PRIVACY 2019-05-04 04:10:29 Doctor Unassigned, No [facility] Branch CONSENT/REFUSAL FOR 2019-05-04 04:10:09 Doctor Unassigned, No [facility] [place] DIAGNOSIS AND TREATMENT [facility] Encounters Start End Encounter Admission Attending Care Care Encounter Source Date/Time Date/Time Type Type Clinicians Facility Department ID 2021-07-19 Emergency [facility] [id number] [facility] 08:46:33 ity of [facility] 2023-04-22 2023-04-22 Outpatient R NOMI MARY [facility] [id number] Univers 00:00:00 00:00:00 NOMI MARY i ty of [facility] 2023-04-19 2023-04-19 Outpatient R NOMI MARY [facility] [id number] Univers 10:00:00 10:53:24 NOMI MARY i of [facility] 2023-04-19 2023-04-19 Office Mathew [facility] [id number] Univers 10:00:00 10:53:24 Visit Nomi DERAS [id number] i ty [id number] [id number] Nm dical NAL 085 [facility] 2023-04-19 2023-04-19 Patient Marika Monge [id number] Univers 00:00:00 00:00:00 Outreach E SHAIKH [id number] i [id number] [id number] [facility] 403 Branch 2023-03-15 2023-03-19 Inpatient EM Rudy Xiao HCAWU INTE.02 [id number] [facility] 07:16:00 14:47:00 22 [facility] 2023-03-01 2023-03-01 Office Adriano [facility] [id number] Univers 16:30:00 17:00:00 Visit HerminiaAppJet [id number] it y [facility] [id number] [place] as JACKIE?BLEA [phone] Nm soraidapa NATALEE 092 [place] [facility] MEDICAL OFFICE [facility] 2023-03-01 2023-03-01 Outpatient R ADRIANO [facility] [id number] Univers 16:30:00 16:30:[address] [facility] 2023-03-01 2023-03-01 Orders Doctor FRIEDMAN [id number] Univers 00:00:00 00:00:00 Only Unassigned, ASHER [id number] ity of [place] [facility] [id number] Nelson as [id number] [facility] 009 [place] [facility] 2023-03-01 2023-03-01 Refill Christa [facility] [id number] Univers 00:00:00 00:00:00 , Mily Gecko [id number] ity of [place] DER[place] [id number] [place] as JACKIE?BLEA [id number] Nm dical KNEY 044 [place] [facility] MEDICAL OFFICE BUILDING 2023-02-21 2023-02-21 Transition GARY Frye [id number] Univers 00:00:00 00:00:00 of Care Taylor SHAIKH 350.1.13.10 it y of [place] 4.2.7.2.686 [facility] [phone] [facility] [address] 2023-02-15 2023-02-18 Inpatient X RADHA [facility] [id number] Univers 14:41:00 16:11:[address] [facility] 2023-02-15 2023-02-18 [facility] Iza Varma [facility] 1.2.840.11 4 [id number] Univers 14:41:00 16:11:00 Encounter Francisca Bryant 350.1.13 .10 ity of Travis Zeng [place] 4.2.7.2.686 [facility] [id number] [facility] [address] 2023-02-07 2023-02-07 Emergency X NORMAN [facility] ERT [id number] Univers 14:30:00 16:01:[address] [facility] 2023-02-07 2023-02-07 [facility] 1.2.840.114 10 [id number] Univers 14:30:00 16:01:00 Pradip DERAS 350.1.13.10 ity of [place] 4.2.7.2.686 [facility] [phone] [facility] [address] 2023-02-07 2023-02-07 Outpatient R CARL ORLANDO [facility] [id number] Univers 10:20:00 10:20:[address] [facility] 2023-02-05 2023-02-05 Emergency X MARQUIS [facility] ERT [id number] Univers 14:53:00 16:10:[address] [facility] 2023-02-05 2023-02-05 Emergency [facility] 1.2.699.326 [id number] Univers 14:53:00 16:10:00 Herminia DERAS 350.1.13.10 i ty of [place] 4.2.7.2.686 [facility] [id number] [address] 2023-02-04 2023-02-04 Emergency X MANNY, [facility] ERT [id number] Univers 15:26:00 16:25:[address] [facility] 2023-02-04 2023-02-04 Emergency [facility] 1.2.840.114 10 [id number] Univers 15:26:00 16:25:00 Francisca DERAS 350.1.13.10 ity of [facility] 4.2.7.2.6 [facility] [id number] [address] 2023-02-03 2023-02-03 Emergency X HONG, [facility] ERT [id number] Univers 17:46:00 18:47:[address] [facility] 2023-02-03 2023-02-03 Emergency X HONG, [facility] ERT [id number] Univers 17:46:00 18:47:[address] [facility] 2023-02-03 2023-02-03 Emergency Hong, [facility] 1.2.152.014 [id number] [id number] Univers 17:46:00 18:47:00 Louis DERAS 350.1.13.10 i ty of [place] 4.2.7.2.[address] [place] [phone] 2023-02-03 2023-02-03 Emergency Darek, [facility] 1.2.159.980 [id number] Univers 12:43:00 15:04:00 Bessie DERAS 350.1.13.10 i ty of [facility] 4.2.7.2.[address] [place] [id number] 2023-02-02 2023-02-02 Emergency X HONG, [facility] ERT [id number] Univers 16:49:00 18:10:[address] [facility] 2023-02-02 2023-02-02 Emergency Hong, [facility] 1.2.264.818 [id number] Univers 16:49:00 18:10:00 Louis DERAS 350.1.13.10 i ty of [facility] 4.2.7.2.[address] [place] [phone] 2023-01-31 2023-01-31 Emergency X KRISTIE, [facility] ERT [id number] Univers 13:55:00 16:50:[address] [facility] 2023-01-31 2023-01-31 Emergency X KRISTIE, [facility] ERT [id number] Univers 13:55:00 16:50:00 RACHAEL [facility] 2023-01-31 2023-01-31 Emergency Kristie, [facility] 1.2.840.114 10 [id number] Univers 13:55:00 16:50:00 Rachael BRAEDEN 350.1.13.10 i ty of [facility] 4.2.7.2.[address] [place] [phone] 2023-01-31 2023-01-31 Emergency X VASUT, [facility] ERT [id number] Univers 11:11:00 12:12:00 LEOBARDO [facility] 2023-01-31 2023-01-31 Emergency Vasut, [facility] 1.2.866.836 [id number] Univers 11:11:00 12:12:00 Leobardo DERAS 350.1.13.10 i ty of [facility] 4.2.7.2.[address] [place] [phone] 2023-01-31 2023-01-31 Emergency [facility] 1.2.383.716 [id number] Univers 09:51:00 10:16:00 BRAEDEN 350.1.13.10 i ty of [facility] 4.2.7.2.[address] [place] [id number] 2023-01-29 2023-01-29 Emergency X CHO, [facility] ERT [id number] Univers 08:08:00 10:00:[address] [facility] 2023-01-29 2023-01-29 Emergency [facility] 1.2.460.542 [id number] Univers 08:08:00 10:00:00 Herminia DERAS 350.1.13.10 i ty of [facility] 4.2.7.2.[address] [place] [id number] 2023-01-27 2023-01-27 Emergency X [facility] ERT [id number] Univers 04:50:00 07:03:[address] [facility] 2023-01-27 2023-01-27 Emergency [facility] 1.2.885.901 [id number] Univers 04:50:00 07:03:00 Bessie DERAS 350.1.13.10 i ty of [facility] 4.2.7.2.686 [facility] [id number] [address] 2023-01-27 2023-01-27 [place] [facility] 1.2.304.178 [id number] [id number] Univers 00:00:00 00:00:00 Nomi DERAS 350.1.13.10 i ty of [facility] 4.2.7.2.686 [facility] PROFESSIO [id number] Nm dical [address] 2023-01-24 2023-01-24 Emergency X [facility] ERT [id number] Univers 12:28:00 16:16:00 STEPHANIE [facility] 2023-01-24 2023-01-24 [facility] 1.2.107.619 [id number] [id number] Univers 12:28:00 16:16:00 Stephanie DERAS 350.1.13.10 i ty of [place] 4.2.7.[address] [place] [id number] 2023-01-23 2023-01-23 Emergency X [facility] ERT [id number] Univers 19:02:00 20:36:[address] [facility] 2023-01-23 2023-01-23 Emergency [facility] 1.2.885.898 [id number] Univers 19:02:00 20:36:00 Iza DERAS 350.1.13.10 i ty of [place] 4.2.7.2.686 [facility] [id number] [address] 2023-01-22 2023-01-22 Emergency X [facility] ERT [id number] Univers 18:24:00 19:55:[address] [facility] 2023-01-22 2023-01-22 Emergency Avani [facility] 1.2.080.608 [id number] [id number] Univers 18:24:00 19:55:00 Iza Chandler BRAEDEN 350.1.13.10 i ty of [facility] 4.2.7.2.686 [facility] [id number] [facility] [address] 2023-01-21 2023-01-21 Emergency X [facility] ERT [id number] Univers 14:20:00 18:14:[address] [facility] 2023-01-21 2023-01-21 Emergency [facility] 1.2.401.205 [id number] Univers 14:20:00 18:14:00 Louis BRAEDEN 350.1.13.10 i ty of [place] 4.2.7.2.686 [facility] [id number] [facility] [address] 2023-01-20 2023-01-20 Transition FryeGARY 1.2.840.114 [id number] Univers 00:00:00 00:00:00 of Care Taylor SHAIKH 350.1.13.10 it y of [place] 4.2.7.2.686 [facility] [id number] [facility] [address] 2023-01-19 2023-01-19 [facility] 1.2.84 0.114 [id number] Univers 01:15:00 19:40:00 Encounter Iza Varma 350.1.13.10 ity of Agapito Hackett [place] 4.2.7.2.686 [facility] [id number] [place] 211850 Branch 2023-01-17 2023-01-17 Emergency X [facility] ERT [id number] Univers 05:57:00 07:37:[address] [facility] 2023-01-17 2023-01-17 Emergency [facility] 1.2.933.253 [id number] Univers 05:57:00 07:37:00 Marisol DERAS 350.1.13.10 ity of [facility] 4.2.7.2.686 [facility] [id number] [address] 2023-01-17 2023-01-17 Emergency X CLAUS [facility] ERT [id number] Univers 05:57:00 07:37:[address] [facility] 2023-01-10 2023-01-10 Letter [facility] 1.2.840.114 [id number] Univers 00:00:00 00:00:00 (Out) HerminiaAppJet 350.1.13.10 it y of [place] 4.2.7.2.686 Nelson as JACKIE?BLEA [id number] [address] OFFICE [facility] 2023-01-07 2023-01-07 Outpatient [facility] [id number] Univers 14:30:00 15:25:[address] [facility] 2023-01-07 2023-01-07 Office [facility] 1.2.840.114 [id number] Univers 14:30:00 15:25:56 Visit Herminia Gecko 350.1.13.10 it y of [place] 4.2.7.2.686 [place] as JACKIE?BLEA [id number] [address] OFFICE [facility] 2022-12-26 2022-12-26 Emergency X [facility] ERT [id number] Univers 10:50:00 14:12:[address] [facility] 2022-12-26 2022-12-26 Emergency [facility] 1.2.120.873 [id number] Univers 10:50:00 14:12:00 Iza S MENDELTON 350.1.13.10 i ty of [facility] 4.2.7.2.686 [facility] [id number] [address] 2022-12-14 2022-12-14 Outpatient R NOMI MARY [facility] 10 [id number] Univers 11:30:00 11:30:00 NOMI MARY i ty of [facility] 2022-12-14 2022-12-14 Transition GARY Frye 1.2.840.114 [id number] Univers 00:00:00 00:00:00 of Care Taylor B SHAIKH 350.1.13.10 it y of [place]2.7.2.686 [place] [id number] [facility] [address] 2022-12-10 2022-12-12 Outpatient X DAVEYRADHA [facility] PARRISH [id number] Univers 18:49:00 14:35:00 TRAVIS ity of [facility] 2022-12-10 2022-12-12 [facility] Louis Hong [facility] 1.2.840.1 14 [id number] Univers 18:49:00 14:35:00 Encounter Dedrick Toth 350.1.13. 10 ity of Karri Travisgeorge PATHAK 4.2.7.2.686 [facility] [id number] [facility] [address] 2022-12-10 2022-12-10 Enrrique Mary [facility] 1.2.840.114 [id number] Univers 00:00:00 00:00:00 Management Nomi DERAS 350.1.13.10 ity of [place].2.686 [place] [phone] [facility] [address] [facility] 2022-12-10 2022-12-10 Transition GARY Caro 1.2.840.114 101 [id number] Univers 00:00:00 00:00:00 of Care Cecy SHAIKH 350.1.13.10 ity of [place].2.7.2.[place] [id number] [facility] [address] 2022-12-09 2022-12-09 Orders Doctor ELDER 1.2.840.114 [id number] Univers 00:00:00 00:00:00 Only Unassigned, ASHER 350.1.13.10 ity of [place] [facility] 4.2.7.2.686 Nelson as [id number] [facility] [address] 2022-12-06 2022-12-06 Transition GARY Frye 1.2.840.114 101 [id number] Univers 00:00:00 00:00:00 of Care Taylor B SHAIKH 350.1.13.10 it y of [place] 4.2.7.2.686 [place] [id number] [facility] [address] 2022-12-02 2022-12-04 Hospital Carlo Maki [facility] 1.2.8 40.114 [id number] Univers 00:13:00 12:30:00 Encounter Beny Abi [facility] 350.1.13.10 ity of Clive Contreras 4.2.7.2.686 [facility] [id number] [facility] 110 Branch (CLC) 2022-12-01 2022-12-01 Emergency U ERNESTO PIPER [facility] ERT [id number] Univers 05:32:00 09:08:00 [facility]O [facility] 2022-12-01 2022-12-01 Emergency Marisol Devlin [facility] 1.2.840 .114 [id number] Univers 05:32:00 09:08:00 Ernesto Piper 350.1.13.10 ity of Krissy Powers 4.2.7.2.686 [facility] [id number] [place] 792784 Branch 2022-12-01 2022-12-01 Emergency U CHUCKERNESTO Francois [facility] ERT [id number] Univers 05:32:00 09:08:00 ERNESTO PIPER [facility] 2022-11-26 2022-11-28 Outpatient X DHARMESH [facility] [place] [id number] Univers 22:55:00 13:50:00 LEILA [facility] 2022-11-26 2022-11-28 Hospital Bessie Oswald [facility] 1.2.840.11 4 [id number] Univers 22:55:00 13:50:00 Encounter María Diaz 350.1.13.10 ity of Leila Chapa 4.2.7.2.686 [facility] [id number] [facility] [address] 2022-11-19 2022-11-19 Emergency X AVANI [facility] ERT [id number] Univers 02:17:00 05:12:00 [facility] 2022-11-19 2022-11-19 Emergency [facility] 1.2.538.228 [id number] Univers 02:17:00 05:12:00 Iza DERAS 350.1.13.10 i ty of [facility] 4.2.7.2.686 [facility] [id number] [facility] [address] [place] [facility] 2022-11-18 2022-11-18 Emergency X [facility] ERT [id number] Univers 18:52:00 20:29:[address] [facility] 2022-11-18 2022-11-18 Emergency [facility] 1.2.840.114 10 [id number] Univers 18:52:00 20:29:00 Francisca DERAS 350.1.13.10 ity of [facility] 4.2.7.2.686 [facility] [id number] [place] 792784 [facility] 2022-11-17 2022-11-17 Telephone [facility] 1.2.655.765 [id number] Univers 00:00:00 00:00:00 Nomi DERAS 350.1.13.10 i ty of [place].2.7.2.686 [place] [id number] [place] 328435 [facility] 2022-11-12 2022-11-12 Transition GARY Frye 1.2.840.114 100 [id number] Univers 00:00:00 00:00:00 of Care Taylor SHAIKH 350.1.13.10 it y of [place] 4.2.7.2.686 [place] [id number] [facility] [address] 2022-11-09 2022-11-11 Inpatient X KARRI [facility] [place] [id number] Univers 01:32:00 13:35:[address] [facility] 2022-11-09 2022-11-11 [facility] Marisol Devlin [facility] 1.2.840. 114 [id number] Univers 01:32:00 13:35:00 Encounter Travis Zeng 350.1.13.10 ity of [facility] 4.2.7.2.[place] [id number] [facility] [address] [place] [facility] 2021-05-22 2021-05-22 Telephone [facility] 1.2.435.120 [id number] Univers 00:00:00 00:00:00 Jeanette Deshpande Braeden 350.1.13.10 ity of [place].2.[place] [id number] Nm dical nal 204 [facility] 2021-05-20 2021-05-20 Rolling Chair Pusher Remington, Anshu [facility] 1.2.8 40.114 [id number] Univers 14:28:38 14:43:38 Visit Gokul Turner 350.1.13.10 ity of [place] 4.2.7.2.686 [place] [phone] [facility] 353 [facility] 2021-05-20 2021-05-20 Outpatient R YUE [facility] [id number] Univers 14:30:00 14:30:[address] [facility] 2021-05-20 2021-05-20 Orders Doctor ELDER 1.2.840.114 [id number] Univers 00:00:00 00:00:00 Only Unassigned, ASHER 350.1.13.10 ity of [place] [facility] 4.2.7.2.686 Nelson as [id number] [facility] 00[address] [place] [facility] 2021-05-20 2021-05-20 Telephone [facility] 1.2.840.114 [id number] Univers 00:00:00 00:00:00 Gokul Deras 350.1.13.10 i ty of [place].2.[place] [phone] Nm dical nal 204 [facility] 2020-12-29 2020-12-29 Office [facility] 1.2.840.114 [id number] Univers 10:12:45 11:07:51 Visit Gokul Deras 350.1.13.10 i ty of [place] 4.2.7.2.686 [place] [phone] Nm dical nal 204 [facility] 2020-12-29 2020-12-29 Outpatient R YUE [facility] [id number] Univers 10:15:00 10:15:[address] [facility] 2020-12-18 2020-12-18 Office [facility] 1.2.840.114 [id number] Univers 13:36:17 14:58:35 Visit Rm, Adc Surg Spec Procedure Braeden 3 50.1.13.10 ity of [place] 4.2.7.2.[place] [phone] [address] 2020-12-18 2020-12-18 Outpatient R YUE [facility] [id number] Univers 14:00:00 14:00:00 [facility] 2020-12-16 2020-12-16 Outpatient [facility] [id number] Univers 00:00:00 00:00:00 JEANETTENorth [facility] 2020-12-16 2020-12-16 Telephone [facility] 1.2.172.615 [id number] Univers 00:00:00 00:00:00 Jaenette Deras 350.1.13.10 ity of [place].2.[place] [phone] [address] 2020-12-12 2020-12-12 Emergency [facility] 1.2.840.114 [id number] Univers 11:36:00 13:42:00 Francisca Deras 350.1.13.10 ity of [place] 4.2.7.2.686 [place] [phone] [address] 2020-12-12 2020-12-12 Telephone [facility] 1.2.137.611 [id number] Univers 00:00:00 00:00:00 Jeanette Deras 350.1.13.10 ity of [place] 4[place].7.2.[place] [id number] [address] 2020-12-08 2020-12-08 Office [facility] 1.2.840.114 [id number] Univers 13:28:10 14:09:14 Visit Jeanette Deras 350.1.13.10 ity of [place] 4.2.7.2.686 [place] ess[place] [id number] Nm dical [address] 2020-12-08 2020-12-08 Outpatient Manoj MCDANIEL, [facility] [id number] Univers 13:30:00 13:30:[address] [facility] 2020-12-08 2020-12-08 Orders Doctor ELDER Addison.2.840.114 [id number] Univers 00:00:00 00:00:00 Only Unassigned, ASHER 350.1.13.10 ity of [place] [facility] 4.2.7.2.686 Nelson as [id number] [address] 2020-12-07 2020-12-07 Nurse ELDER Perez2.840.114 [id number] Univers 00:00:00 00:00:00 Triage Herminia Chandler ASHER 350.1.13.10 ity of [facility] 4.2.7.2.686 Nelson as [phone] [address] 2020-06-19 2020-06-19 Outpatient Pepper, [facility] [id number] [facility] 13:30:00 13:30:[address] [place] [address] 2020-02-20 2020-02-20 Orders Doctor ELDER Addison.2.840.114 [id number] 00:00:00 00:00:00 Only Unassigned, ASHER 350.1.13.10 [place] [facility] 4.2.7.2.686 [id number] 009 2020-02-20 2020-02-20 Orders Doctor ELDER Addison.2.840.114 [id number] Univers 00:00:00 00:00:00 Only Unassigned, ASHER 350.1.13.10 ity of [place] [facility] 4.2.7.2.686 [place] as [phone] [address] 2019-08-28 2019-08-28 Emergency X MARQUIS [facility] ERT [id number] Univers 08:25:33 11:54:[address] [facility] 2019-08-24 2019-08-24 Emergency X SINGER [facility] ERT [id number] Univers 01:43:17 03:52:00 LOUIS judge of [facility] 2019-05-03 2019-05-04 Emergency [facility] 1.2.968.750 [id number] 23:28:18 00:27:00 Rameshmariela Deras 350.1.13.10 [place] 4.2.7.2.686 [place] [id number] [facility] 2019-05-03 2019-05-04 Emergency [facility] 1.2.120.020 [id number] [facility] 23:28:18 00:27:00 Rameshmariela Deras 350.1.13.10 i ty of [place] 4.2.7.2.686 [facility] s [place] [phone] [place] 792784 [facility] 2019-05-03 2019-05-03 Orders Doctor ELDER 1.2.840.114 [id number] Univers 00:00:00 00:00:00 Only Unassigned, ASHER 350.1.13.10 ity of [place] [facility] 4.2.7.2.686 [place] [phone] [place] [address] [address] 2019-05-03 2019-05-03 Orders Doctor ELDER 1.2.840.114 [id number] 00:00:00 00:00:00 Only Unassigned, ASHER 350.1.13.10 [facility] 4.2.7.2.686 [id number] 009 Results Test Description Test Time Test Comments Results Result Comments Source GLUCOSE BEDSIDE TESTING 2023-03-19 11:23:00 Test Item Value Reference Range Interpretation Comme nts GLUCOSE BEDSIDE TESTING (test code = GLUBED) 112 MG/DL 60-99 H GLUCOSE BEDSIDE [id number] 07:35:00 Test Item Value Reference Range Interpretation Comments GLUCOSE BEDSIDE TESTING (test code 170 MG/DL 60-99 H = GLUBED) VITAMIN [id number] 15:12:00 Test Item Value Reference Range Interpretation Comments VITAMIN B12 (test code = VITB12) 738 pg/mL 853-931 N FOLIC [id number] 15:12:00 Test Item Value Reference Range Interpretation Comments FOLIC ACID (test 4.9 ng/mL REFERENCE V ALUES: code = FOLR) NORMAL: 2.76 - >20 ng/ML DEFICIENT: 1.04 - 2.79 ng/ML COMPREHENSIVE METABOLIC [id number] 11:38:00 Test Item Value Reference Range Interpretation [...] the recommended for keon for GFRby the [facility] Kidney Foundation for Adults.The GFR will [...] PHOSPHATASE (test code = ALKP) CBC W/AUTO [id number] 11:24:00 Test Item Value Reference Range Interpretation [...] 0.00 K/mm3 0.0-0.1 N NRBC#) ARTERIAL BLOOD [id number] 17:25:00 Test Item Value Reference Range Interpretation [...] mated message] code = TEMPA) The system [employer] generated this result transmitted ref erence range: 37. The reference range was not used to int erpret this result as normal/abnormal . ABG SITE (test code = LR SITEA) ALLENS TEST (test Y CHECK code = ALLENS) FIO2 (test code = 36 % COHBGFFIO2) [id number] 12:29:00 Test Item Value Reference Range Interpretation Comments PHOSPHOROUS (test code = PHOS) 3.5 MG/DL 2.5-4.5 N ADD ON TEST? [id number] 12:29:00 Test Item Value Reference Range Interpretation Comments MAGNESIUM (test code = MAG) 1.8 MG/DL 1.6-2.3 N ADD ON TEST? YesARTERIAL BLOOD [id number] 12:26:00 Test Item Value Reference Range Interpretation [...] and readback by DR KELLI GARCIA by JeramyUNM CANCER [email or web address] at 03/15/2023 12:12 :31 PM ABG DELIVERY [...] % 0.4-1.5 L = METHGB) VENOUS BLOOD [id number] 11:46:00 Test Item Value Reference Range Interpretation [...] % 0.4-1.5 L = METHGB) BASIC METABOLIC [id number] 07:06:00 Test Item Value Reference Range Interpretation [...] MG/DL 8.4-10.2 L CA) NT PRO-BRAIN NATRIURETIC [id number] 07:06:00 Test Item Value Reference Range Interpretation [...] causes* of NT-p roBNP elevation. -------- -------- [id number] 07:06:00 Test Item Value Reference Range Interpretation Comments TROPONIN-I (test code = TROPI) < 0.012 NG/ML 0.012-0.033 L - XR CHEST [id number] 06:59:00 [facility] 1960 Sex: M Patient Name: JUAN C MONGE Unit No: [id number] EXAMS: CPT CODE: [id number] XR CHEST 1V 97800 EXAMINATION: - XR CHEST 1V HISTORY: Chest [...] [id number] Orig Print D/T: S: 03/15/2023 (0702) [facility] NAME: JUAN C MONGE [id number] PHYS: [place] [address] : 1960 AGE:62 SEX: M LOC: [facility] PHONE #: [phone] EXAM DATE: 03/15/2023 STATUS: REG ER FAX #: [phone] RADIOLOGY NO: PAGE 1 Signed ReportCBC W/O [id number] 06:42:00 Test Item Value Reference Range Interpretation [...] = 0.00 K/mm3 0.0-0.1 N NRBC#) TROPONIN [id number] 21:12:01 Test Item Value Reference Range Interpretation Comments TROPONIN I (test code = <=0.034 [id number]) OMAYRA (test code = OMAYRA) Reference (Normal) [...] biotin. Lab Interpretation Normal (test code = 58116-5) [facility]. METABOLIC PANEL ([id number])2023-02-15 21:00:57 Test Item Value Reference Range Interpretation Comments NA (test code = 133 mmol/L 135-145 L [id number]) K (test code = 4.5 mmol/L 3.5-5.0 5016685093) CL (test code = 90 mmol/L 98-108 L 8031603489) CO2 TOTAL (test code = 40 mmol/L 23-31 H 7117396964) AGAP (test code = 3 2-16 4828990218) BUN (test code = 25 mg/dL 7-23 H 4071130848) GLUCOSE (test code = 107 mg/dL 70-110 2924569250) CREATININE (test code = 0.88 mg/dL 0.60-1.25 4782495515) TOTAL BILI (test code = 1.6 mg/dL 0.1-1.1 H 2245424219) CALCIUM (test code = 8.9 mg/dL 8.6-10.6 0583379430) T PROTEIN (test code = 6.1 g/dL 6.3-8.2 L 3964563252) ALBUMIN (test code = 3.7 g/dL 3.5-5.0 8843461160) ALK PHOS (test code = 56 U/L 34-122 8211374634) ALTv (test code = 14 U/L 5-50 1742-6) AST(SGOT) (test code = 12 U/L 13-40 L 9557292980) eGFR (test code = 87.2 mL/min/1.73m2 1356581244) OMAYRA (test code = OMAYRA) Association of [...] tests). Lab Interpretation Abnormal (test code = 61099-8) [facility] Test Item Value Reference Range Interpretation Comments MAGNESIUM (test code = 0139932231) 2.0 mg/dL 1.7-2.4 Lab Interpretation (test code = Normal 74580-4) [facility] WITH [id number] 20:53:39 Test Item Value Reference Range Interpretation [...] RDW-SD (test code = 50.1 fL 38.5-51.6 23717-0) RDW-CV (test code = 13.6 % 12.1-15.4 788-0) PLT (test code = 223 See_Comment [Automated 777-3) message] The sy stem which generated this result transmitted reference range : 150 - 328 10*3/ ?L. The reference r pasquale was not used to interpret this result as normal/abnormal . MPV (test code = 12.1 fL 9.8-13.0 43686-7) NRBC/100 WBC (test 0.0 See_Comment [Automat ed code = 2111219394) message] The system which generated this result transmitted reference range : 0.0 - 10.0 /100 WBCs. The refer ence range was not u sed to interpret th is result as normal/abnormal . NRBC x10^3 (test code See_Comment [Auto mated = 2292110201) message] The s ystem which generated this result transmitted reference range : 10*3/?L. The reference range was not used to interpret this result as normal/abnormal . GRAN MAT (NEUT) % 72.8 % (test code = 770-8) IMM GRAN % (test code 0.90 % = 8865690343) LYMPH % (test code = 17.7 % 736-9) MONO % (test code = 7.4 % 5905-5) EOS % (test code = 0.9 % 713-8) BASO % (test code = 0.3 % 706-2) GRAN MAT x10^3(ANC) 6.57 10*3/uL 1.99-6.95 (test code = 2906522861) IMM GRAN x10^3 (test 0.08 10*3/uL 0.00-0.06 H code = 7908294037) LYMPH x10^3 (test code 1.60 10*3/uL 1.09-3.23 = 731-0) MONO x10^3 (test code 0.67 10*3/uL 0.36-1.02 = 742-7) EOS x10^3 (test code = 0.08 10*3/uL 0.06-0.53 711-2) BASO x10^3 (test code 0.03 10*3/uL 0.01-0.09 = 704-7) Lab Interpretation Abnormal (test code = 08999-1) [facility] L[facility] [id number] 20:11:20 Test Item Value Reference Range Interpretation Comments PH (test code = 7.33 7.32-7.42 5939173850) PCO2 ERVIN (test code = 75 See_Comment H [Auto mated 0797469960) message] The sy stem which generated this result transmitted reference range : 41 - 51 mmHg. The reference range was not used to interpret this result as normal/abnormal . PO2 ERVIN (test code = 20 See_Comment L [Autom ated 7252786885) message] The sy stem which generated this result transmitted reference range : 25 - 40 mmHg. The reference range was not used to interpret this result as normal/abnormal . HCO3 ERVIN (test code = 39 See_Comment H [Auto mated 1212346531) message] The sy stem which generated this result transmitted reference range : 24 - 28 mEq/L. The reference range was not used to interpret this result as normal/abnormal . AC VBE(BEAKER) (test 9.1 mEq/L code = 8274584848) THB ERVIN (test code = 15.9 g/dL 13.5-18.0 4893339898) %O2HB ERVIN (test code = 30.0 % 52.0-63.0 L 5959913838) %COHB ERVIN (test code = 4.1 % 0.0-1.5 H 2682459103) %METHB ERVIN (test code = 0.3 % 0.4-1.5 L 0571628809) VOL%O2 ERVIN (test code = 6.7 % 6.0-12.0 3296348329) NA (test code = 137 mmol/L 135-145 4320278892) K+ (test code = 4.5 mmol/L 3.5-5.0 2725716469) AC CA IONZ (test code = 4.60 mg/dL 4.50-5.30 0994712745) GLUCOSE (test code = 113 mg/dL 70-110 H 2007051820) LACTIC ACID (test code 1.65 mmol/L 0.50-2.20 = 3125459382) Lab Interpretation Abnormal (test code = 28683-4) [facility] [id number] 21:20:05 Test Item Value Reference Range Interpretation Comments TROPONIN I (test code = 0.005 ng/mL <=0.034 4035401214) OMAYRA (test code = OMAYRA) Reference (Normal) [...] biotin. Lab Interpretation Normal (test code = 61054-2) [facility] [id number] 21:17:24 Test Item Value Reference Range Interpretation Comments NT-proBNP (test code = 712 pg/mL <=125 H 7178918933) OMAYRA (test code = OMAYRA) Biotin has been reported to cause a negative bias, interpret results relative to patient's use of biotin. Lab Interpretation (test Abnormal code = 79982-6) [facility] 21:13:47 ALCOHOL<10mg/dL01/31/2023 4:13 PM [facility]<10 Tlqmfvwx89-771 Toxic>100 Depression of PENSION CONSULTANT>400 [facility]andCOMP[facility] METABOLIC PANEL (22265) 2023-01-31 21:10:01 Test Item Value Reference Range Interpretation Comments NA (test code = 142 mmol/L 135-145 6720654921) K (test code = 4.7 mmol/L 3.5-5.0 4147091814) CL (test code = 99 mmol/L 98-108 8857667104) CO2 TOTAL (test code = 37 mmol/L 23-31 H 0519136499) AGAP (test code = 6 2-16 7455988458) BUN (test code = 30 mg/dL 7-23 H 9310183207) GLUCOSE (test code = 100 mg/dL 70-110 8097887048) CREATININE (test code = 0.61 mg/dL 0.60-1.25 7033127982) TOTAL BILI (test code = 0.6 mg/dL 0.1-1.4 0898760075) CALCIUM (test code = 8.8 mg/dL 8.6-10.6 6647667839) T PROTEIN (test code = 5.9 g/dL 6.3-8.2 L 1878250600) ALBUMIN (test code = 3.5 g/dL 3.5-5.0 0140272398) ALK PHOS (test code = 42 U/L 34-122 7975057438) ALTv (test code = 16 U/L 5-50 1742-6) AST(SGOT) (test code = 12 U/L 13-40 L 6698107492) eGFR (test code = 133.1 mL/min/1.73m2 1244948965) OMAYRA (test code = OMAYRA) Association of [...] tests). Lab Interpretation Abnormal (test code = 37649-6) [facility] WITH [id number] 20:59:58 Test Item Value Reference Range Interpretation Comments WBC (test code = 13.02 See_Comment H [Automated 6390-2) message] The system which generated this result transmit anirudh reference range : 4.20 - 10.70 10*3/?L. The reference range was not used to interpret this result as normal/abnormal . RBC (test code = 4.09 See_Comment L [Automated 952-8) message] The system which generated this result [...] (test code = 61.6 fL 38.5-51.6 H 63768-2) RDW-CV (test code = 16.2 % 12.1-15.4 H 788-0) PLT (test code = 250 See_Comment [Automated 777-3) message] The system which generated this result transmit anirudh reference range : 150 - 328 10*3/ ?L. The reference range was not u sed to interpret th is result as normal/abnormal . MPV (test code = 10.5 fL 9.8-13.0 07075-4) NRBC/100 WBC (test 0.0 See_Comment [Automat ed code = 1181705317) message] The system which generated this result transmit anirudh reference range : 0.0 - 10.0 /100 WBCs. The reference range was not used to interpret this result as normal/abnormal . NRBC x10^3 (test code See_Comment [Auto mated = 8437951514) message] The system which generated this result transmit anirudh reference range : 10*3/?L. The reference range was not used to interpret this result as normal/abnormal . GRAN MAT (NEUT) % 90.9 % (test code = 770-8) IMM GRAN % (test code 1.20 % = 1237798337) LYMPH % (test code = 3.9 % 736-9) MONO % (test code = 3.8 % 5905-5) EOS % (test code = 0.0 % 713-8) BASO % (test code = 0.2 % 706-2) GRAN MAT x10^3(ANC) 11.83 10*3/uL 1.99-6.95 H (test code = 1195870171) IMM GRAN x10^3 (test 0.16 10*3/uL 0.00-0.06 H code = 4117511031) LYMPH x10^3 (test code 0.51 10*3/uL 1.09-3.23 L = 731-0) MONO x10^3 (test code 0.49 10*3/uL 0.36-1.02 = 742-7) EOS x10^3 (test code = 0.06-0.53 L 711-2) BASO x10^3 (test code 0.03 10*3/uL 0.01-0.09 = 704-7) Lab Interpretation Abnormal (test code = 82686-0) [facility] [id number] 11:16:36 Test Item Value Reference Range Interpretation Comments TROPONIN I (test code = 0.002 ng/mL <=0.034 0370410844) OMAYRA (test code = OMAYRA) Reference (Normal) [...] biotin. Lab Interpretation Normal (test code = 74252-0) [facility] [id number] 11:13:18 Test Item Value Reference Range Interpretation Comments NT-proBNP (test code = 112 pg/mL <=125 6966323367) OMAYRA (test code = OMAYRA) Biotin has been reported to cause a negative bias, interpret results relative to patient's use of biotin. Lab Interpretation (test Normal code = 59977-4) [facility] (NA, K, CL, CO2, GLUCOSE, BUN, CREATININE, CA)2023-01-27 11:04:56 Test Item Value Reference Range Interpretation Comments NA (test code = 136 mmol/L 135-145 1047397609) K (test code = 4.1 mmol/L 3.5-5.0 1389994312) CL (test code = 96 mmol/L 98-108 L 5861296508) CO2 TOTAL (test code = 34 mmol/L 23-31 H 4336832964) AGAP (test code = 6 2-16 2759192047) BUN (test code = 22 mg/dL 7-23 4010428615) GLUCOSE (test code = 117 mg/dL 70-110 H 8264973391) CREATININE (test code = 0.55 mg/dL 0.60-1.25 L 3264578994) CALCIUM (test code = 8.4 mg/dL 8.6-10.6 L 6330445829) eGFR (test code = 150.0 mL/min/1.73m2 5745805324) OMAYRA (test code = OMAYRA) Association of [...] tests). Lab Interpretation Abnormal (test code = 44350-0) [facility] WITH [id number] 10:38:33 Test Item Value Reference Range Interpretation Comments WBC (test code = 9.56 See_Comment [Yozpttupj 4417-2) message] The sy stem which generated this [...] (test code = 56.7 fL 38.5-51.6 H 85788-3) RDW-CV (test code = 15.3 % 12.1-15.4 788-0) PLT (test code = 220 See_Comment [Automated 777-3) message] The sy stem which generated this result transmitted reference range : 150 - 328 10*3/ ?L. The reference r pasquale was not used to interpret this result as normal/abnormal . MPV (test code = 10.6 fL 9.8-13.0 44082-6) NRBC/100 WBC (test 0.0 See_Comment [Automat ed code = 1110760809) message] The system which generated this result transmitted reference range : 0.0 - 10.0 /100 WBCs. The refer ence range was not u sed to interpret th is result as normal/abnormal . NRBC x10^3 (test code See_Comment [Auto mated = 5038257773) message] The s ystem which generated this result transmitted reference range : 10*3/?L. The reference range was not used to interpret this result as normal/abnormal . GRAN MAT (NEUT) % 60.0 % (test code = 770-8) IMM GRAN % (test code 0.70 % = 8491014698) LYMPH % (test code = 26.5 % 736-9) MONO % (test code = 11.4 % 5905-5) EOS % (test code = 0.9 % 713-8) BASO % (test code = 0.5 % 706-2) GRAN MAT x10^3(ANC) 5.73 10*3/uL 1.99-6.95 (test code = 5162361381) IMM GRAN x10^3 (test 0.07 10*3/uL 0.00-0.06 H code = 8251665336) LYMPH x10^3 (test code 2.53 10*3/uL 1.09-3.23 = 731-0) MONO x10^3 (test code 1.09 10*3/uL 0.36-1.02 H = 742-7) EOS x10^3 (test code = 0.09 10*3/uL 0.06-0.53 711-2) BASO x10^3 (test code 0.05 10*3/uL 0.01-0.09 = 704-7) Lab Interpretation Abnormal (test code = 95708-9) [facility] CenterAMMONIA, [id number] 18:51:59 Test Item Value Reference Range Interpretation Comments AMMONIA (test code = 3243680189) 9-33 L Lab Interpretation (test code = Abnormal 06291-3) [facility] + LACTIC [id number] 18:40:53 Test Item Value Reference Range Interpretation Comments PH (test code = 2) 7.43 7.35-7.45 PCO2 (test code = 53 See_Comment H [Automate d 6314706464) message] The sy stem which generated this result transmitted reference range : 35 - 45 mmHg. The reference range was not used to interpret this result as normal/abnormal . PO2 (test code = 49 See_Comment L [Automated 5687330255) message] The sy stem which generated this result transmitted reference range : 80 - 100 mmHg. The reference range was not used to interpret this result as normal/abnormal . HCO3 (test code = 34 See_Comment H [Automate d 8957696055) message] The sy stem which generated this result transmitted reference range : 22 - 26 mEq/L. The reference range was not used to interpret this result as normal/abnormal . BE (test code = 7.8 See_Comment H [Automated 6912647512) message] The sy stem which generated this result transmitted reference range : -3.0 - 3.0 mEq/ L. The reference r pasquale was not used to interpret this result as normal/abnormal . LACTIC ACID (test code 0.92 mmol/L 0.50-2.20 = 6014951939) Lab Interpretation Abnormal (test code = 31476-3) [facility] CenterTroponin [id number] 18:28:26 Test Item Value Reference Range Interpretation Comments TROPONIN I (test code = 0.003 ng/mL <=0.034 3657145977) OMAYRA (test code = OMAYRA) Reference (Normal) [...] biotin. Lab Interpretation Normal (test code = 59030-3) [facility] [id number] 18:25:29 Test Item Value Reference Range Interpretation Comments NT-proBNP (test code = 376 pg/mL <=125 H 0145010466) OMAYRA (test code = OMAYRA) Biotin has been reported to cause a negative bias, interpret results relative to patient's use of biotin. Lab Interpretation (test Abnormal code = 93924-9) [facility] (67467)2023-01-24 18:24:03 Test Item Value Reference Range Interpretation Comments NA (test code = 135 mmol/L 135-145 6355312277) K (test code = 4.0 mmol/L 3.5-5.0 2667515088) CL (test code = 90 mmol/L 98-108 L 9501884547) CO2 TOTAL (test code = 43 mmol/L 23-31 H 0598444754) AGAP (test code = 2 2-16 5576472935) BUN (test code = 12 mg/dL 7-23 2960378519) GLUCOSE (test code = 92 mg/dL 70-110 8167983953) CREATININE (test code = 0.58 mg/dL 0.60-1.25 L 5932978588) TOTAL BILI (test code = 1.3 mg/dL 0.1-1.1 H 8965463285) CALCIUM (test code = 8.6 mg/dL 8.6-10.6 9017041186) T PROTEIN (test code = 6.0 g/dL 6.3-8.2 L 4694660056) ALBUMIN (test code = 3.6 g/dL 3.5-5.0 8167725604) ALK PHOS (test code = 52 U/L 34-122 0812139458) ALTv (test code = 17 U/L 5-50 1742-6) AST(SGOT) (test code = 10 U/L 13-40 L 5904517707) eGFR (test code = 141.1 mL/min/1.73m2 0989276040) OMAYRA (test code = OMAYRA) Association of [...] tests). Lab Interpretation Abnormal (test code = 84530-5) [facility]ETH[facility]OL20[facility] 18:23:38 ALCOHOL<10mg/dL01/24/2023 1:23 [facility] Pzgpzmuy53-516 Toxic>100 Depression of PENSION CONSULTANT>400 Fatalities [facility]UnC[facility] LevellandCBC with Hbvwfbrjjycb3952-99-95 18:09:00 Test Item Value Reference Range Interpretation Comments WBC (test code = 7.84 See_Comment [Automated 2428-2) message] The sy stem which generated this result transmitted reference range : 4.20 - 10.70 10*3/?L. The reference range was not used to interpret this result as normal/abnormal . RBC (test code = 4.46 See_Comment [Automated 439-8) message] The sy stem which generated this [...] (test code = 59.7 fL 38.5-51.6 H 74991-1) RDW-CV (test code = 15.8 % 12.1-15.4 H 788-0) PLT (test code = 239 See_Comment [Automated 717-3) message] The sy stem which generated this result transmitted reference range : 150 - 328 10*3/ ?L. The reference r pasquale was not used to interpret this result as normal/abnormal . MPV (test code = 10.5 fL 9.8-13.0 11421-2) NRBC/100 WBC (test 0.0 See_Comment [Automat ed code = 1968387705) message] The system which generated this result transmitted reference range : 0.0 - 10.0 /100 WBCs. The refer ence range was not u sed to interpret th is result as normal/abnormal . NRBC x10^3 (test code See_Comment [Auto mated = 7192671998) message] The s ystem which generated this result transmitted reference range : 10*3/?L. The reference range was not used to interpret this result as normal/abnormal . GRAN MAT (NEUT) % 64.5 % (test code = 770-8) IMM GRAN % (test code 0.40 % = 0633039427) LYMPH % (test code = 23.1 % 736-9) MONO % (test code = 9.8 % 5905-5) EOS % (test code = 1.8 % 713-8) BASO % (test code = 0.4 % 706-2) GRAN MAT x10^3(ANC) 5.06 10*3/uL 1.99-6.95 (test code = 9446453317) IMM GRAN x10^3 (test 0.03 10*3/uL 0.00-0.06 code = 2575285301) LYMPH x10^3 (test code 1.81 10*3/uL 1.09-3.23 = 731-0) MONO x10^3 (test code 0.77 10*3/uL 0.36-1.02 = 742-7) EOS x10^3 (test code = 0.14 10*3/uL 0.06-0.53 711-2) BASO x10^3 (test code 0.03 10*3/uL 0.01-0.09 = 704-7) Lab Interpretation Abnormal (test code = 67368-4) [facility]. METABOLIC PANEL (12310)2023-01-21 21:33:50 Test Item Value Reference Range Interpretation Comments NA (test code = 136 mmol/L 135-145 9237016715) K (test code = 4.3 mmol/L 3.5-5.0 3826781989) CL (test code = 95 mmol/L 98-108 L 5144826833) CO2 TOTAL (test code = 38 mmol/L 23-31 H 1914143293) AGAP (test code = 3 2-16 5221985034) BUN (test code = 17 mg/dL 7-23 8529736712) GLUCOSE (test code = 102 mg/dL 70-110 3551404951) CREATININE (test code = 0.62 mg/dL 0.60-1.25 4392353663) TOTAL BILI (test code = 0.8 mg/dL 0.1-1.3 8362206913) CALCIUM (test code = 7.8 mg/dL 8.6-10.6 L 5648422438) T PROTEIN (test code = 4.9 g/dL 6.3-8.2 L 0619065184) ALBUMIN (test code = 3.0 g/dL 3.5-5.0 L 0454839863) ALK PHOS (test code = 45 U/L 34-122 3770781399) ALTv (test code = 13 U/L 5-50 1742-6) AST(SGOT) (test code = 11 U/L 13-40 L 2428418416) eGFR (test code = 130.6 mL/min/1.73m2 5617442355) OMAYRA (test code = OMAYRA) Association of [...] tests). Lab Interpretation Abnormal (test code = 28825-9) [facility]TR[facility] [id number] 21:11:45 Test Item Value Reference Range Interpretation Comments TROPONIN I (test code = 0.019 ng/mL <=0.034 6785792988) OMAYRA (test code = OMAYRA) Reference (Normal) [...] biotin. Lab Interpretation Normal (test code = 69869-3) [facility] [id number] 21:08:47 Test Item Value Reference Range Interpretation Comments NT-proBNP (test code = 266 pg/mL <=125 H Hemol yzed 0550170559) specimen OMAYRA (test code = OMAYRA) Biotin has been reported to cause a negative bias, interpret results relative to patient's use of biotin. Lab Interpretation Abnormal (test code = 31694-8) [facility] WITH [id number] 20:40:24 Test Item Value Reference Range Interpretation Comments WBC (test code = 6.78 See_Comment [Automated 2665-2) message] The sy stem which generated this [...] (test code = 60.4 fL 38.5-51.6 H 01445-7) RDW-CV (test code = 16.2 % 12.1-15.4 H 788-0) PLT (test code = 215 See_Comment [Automated 777-3) message] The sy stem which generated this result transmitted reference range : 150 - 328 10*3/ ?L. The reference r pasquale was not used to interpret this result as normal/abnormal . MPV (test code = 10.9 fL 9.8-13.0 05767-8) NRBC/100 WBC (test 0.0 See_Comment [Automat ed code = 2232591936) message] The system which generated this result transmitted reference range : 0.0 - 10.0 /100 WBCs. The refer ence range was not u sed to interpret th is result as normal/abnormal . NRBC x10^3 (test code See_Comment [Auto mated = 3832773595) message] The s ystem which generated this result transmitted reference range : 10*3/?L. The reference range was not used to interpret this result as normal/abnormal . GRAN MAT (NEUT) % 75.4 % (test code = 770-8) IMM GRAN % (test code 0.40 % = 7415365048) LYMPH % (test code = 15.3 % 736-9) MONO % (test code = 7.7 % 5905-5) EOS % (test code = 0.9 % 713-8) BASO % (test code = 0.3 % 706-2) GRAN MAT x10^3(ANC) 5.11 10*3/uL 1.99-6.95 (test code = 0025021943) IMM GRAN x10^3 (test 0.03 10*3/uL 0.00-0.06 code = 0084784979) LYMPH x10^3 (test code 1.04 10*3/uL 1.09-3.23 L = 731-0) MONO x10^3 (test code 0.52 10*3/uL 0.36-1.02 = 742-7) EOS x10^3 (test code = 0.06 10*3/uL 0.06-0.53 711-2) BASO x10^3 (test code 0.01-0.09 = 704-7) Lab Interpretation Abnormal (test code = 54053-4) [facility] Bnn-[id number] 08:49:53 Test Item Value Reference Range Interpretation Comments NT-proBNP (test code = 158 pg/mL <=125 H 5271957489) OMAYRA (test code = OMAYRA) Biotin has been reported to cause a negative bias, interpret results relative to patient's use of biotin. Lab Interpretation (test Abnormal code = 72770-3) [facility] CenterD-Kmawj5441-42-79 08:44:10 Test Item Value Reference Interpretation Comments Range D-DIMER (test code = See_Comment [Autom ated 8585342560) message] The system which generated this result [...] diagnosis. Lab Interpretation Normal (test code = 77123-7) [facility] METABOLIC PANEL (NA, K, CL, CO2, GLUCOSE, BUN, CREATININE, CA)2023-01-19 08:41:13 Test Item Value Reference Range Interpretation Comments NA (test code = 134 mmol/L 135-145 L 5630065062) K (test code = 5.3 mmol/L 3.5-5.0 H 7216844239) CL (test code = 91 mmol/L 98-108 L 2630365401) CO2 TOTAL (test code = 40 mmol/L 23-31 H 9070325206) AGAP (test code = 3 2-16 5664575757) BUN (test code = 14 mg/dL 7-23 2808176287) GLUCOSE (test code = 125 mg/dL 70-110 H 4993205456) CREATININE (test code = 0.64 mg/dL 0.60-1.25 5021907680) CALCIUM (test code = 8.5 mg/dL 8.6-10.6 L 3180066667) eGFR (test code = 125.9 mL/min/1.73m2 5303797601) OMAYRA (test code = OMAYRA) Association of [...] tests). Lab Interpretation Abnormal (test code = 86456-4) [facility] WITH [id number] 08:27:33 Test Item Value Reference Range Interpretation [...] (test code = 58.4 fL 38.5-51.6 H 39315-1) RDW-CV (test code = 15.9 % 12.1-15.4 H 788-0) PLT (test code = 211 See_Comment [Automated 777-3) message] The sy stem which generated this result transmitted reference range : 150 - 328 10*3/ ?L. The reference r pasquale was not used to interpret this result as normal/abnormal . MPV (test code = 10.2 fL 9.8-13.0 40058-6) NRBC/100 WBC (test 0.0 See_Comment [Automat ed code = 3377606708) message] The system which generated this result transmitted reference range : 0.0 - 10.0 /100 WBCs. The refer ence range was not u sed to interpret th is result as normal/abnormal . NRBC x10^3 (test code See_Comment [Auto mated = 8560131615) message] The s ystem which generated this result transmitted reference range : 10*3/?L. The reference range was not used to interpret this result as normal/abnormal . GRAN MAT (NEUT) % 81.2 % (test code = 770-8) IMM GRAN % (test code 0.50 % = 5415081957) LYMPH % (test code = 10.1 % 736-9) MONO % (test code = 7.5 % 5905-5) EOS % (test code = 0.5 % 713-8) BASO % (test code = 0.2 % 706-2) GRAN MAT x10^3(ANC) 8.16 10*3/uL 1.99-6.95 H (test code = 3432392025) IMM GRAN x10^3 (test 0.05 10*3/uL 0.00-0.06 code = 2627618304) LYMPH x10^3 (test code 1.01 10*3/uL 1.09-3.23 L = 731-0) MONO x10^3 (test code 0.75 10*3/uL 0.36-1.02 = 742-7) EOS x10^3 (test code = 0.05 10*3/uL 0.06-0.53 L 711-2) BASO x10^3 (test code 0.01-0.09 = 704-7) Lab Interpretation Abnormal (test code = 02407-2) [id number] Test Item Value Reference Range Interpretation Comments TROPONIN I (test code = 0.004 ng/mL <=0.034 [id number]) OMAYRA (test code = OMAYRA) Reference (Normal) [...] biotin. Lab Interpretation Normal (test code = 10068-0) [id number] 12:06:16 Test Item Value Reference Range Interpretation Comments NT-proBNP (test code = 135 pg/mL <=125 H 2128393637) OMAYRA (test code = OMAYRA) Biotin has been reported to cause a negative bias, interpret results relative to patient's use of biotin. Lab Interpretation (test Abnormal code = 46725-6) [facility] ([id number])2023-01-17 11:57:36 Test Item Value Reference Range Interpretation Comments NA (test code = 133 mmol/L 135-145 L [id number]) K (test code = 5.0 mmol/L 3.5-5.0 1788571896) CL (test code = 91 mmol/L 98-108 L 2014723038) CO2 TOTAL (test code = 33 mmol/L 23-31 H 5270951959) AGAP (test code = 9 2-16 3175417123) BUN (test code = 10 mg/dL 7-23 2964033432) GLUCOSE (test code = 104 mg/dL 70-110 0296116755) CREATININE (test code = 0.63 mg/dL 0.60-1.25 7436076166) TOTAL BILI (test code = 1.2 mg/dL 0.1-1.1 H 2676790483) CALCIUM (test code = 9.0 mg/dL 8.6-10.6 2626374794) T PROTEIN (test code = 6.9 g/dL 6.3-8.2 8481975955) ALBUMIN (test code = 4.4 g/dL 3.5-5.0 4752284415) ALK PHOS (test code = 76 U/L 34-122 0099183443) ALTv (test code = 13 U/L 5-50 1742-6) AST(SGOT) (test code = 13 U/L 13-40 0240924049) eGFR (test code = 128.2 mL/min/1.73m2 1063931162) OMAYRA (test code = OMAYRA) Association of [...] tests). Lab Interpretation Abnormal (test code = 33886-7) [facility] with [id number] 11:30:52 Test Item Value Reference Range Interpretation Comments WBC (test code = 9.66 See_Comment [Automated 2552-2) message] The sy stem which generated this result transmitted reference range : 4.20 - 10.70 10*3/?L. The reference range was not used to interpret this result as normal/abnormal . RBC (test code = 5.00 See_Comment [Automated 130-6) message] The sy stem which generated this [...] (test code = 56.6 fL 38.5-51.6 H 81715-0) RDW-CV (test code = 15.4 % 12.1-15.4 788-0) PLT (test code = 261 See_Comment [Automated 777-3) message] The sy stem which generated this result transmitted reference range : 150 - 328 10*3/ ?L. The reference r pasquale was not used to interpret this result as normal/abnormal . MPV (test code = 10.4 fL 9.8-13.0 74251-5) NRBC/100 WBC (test 0.0 See_Comment [Automat ed code = 7028151504) message] The system which generated this result transmitted reference range : 0.0 - 10.0 /100 WBCs. The refer ence range was not u sed to interpret th is result as normal/abnormal . NRBC x10^3 (test code See_Comment [Auto mated = 0978987235) message] The s ystem which generated this result transmitted reference range : 10*3/?L. The reference range was not used to interpret this result as normal/abnormal . GRAN MAT (NEUT) % 58.9 % (test code = 770-8) IMM GRAN % (test code 0.40 % = 7019182934) LYMPH % (test code = 28.6 % 736-9) MONO % (test code = 10.5 % 5905-5) EOS % (test code = 0.9 % 713-8) BASO % (test code = 0.7 % 706-2) GRAN MAT x10^3(ANC) 5.69 10*3/uL 1.99-6.95 (test code = 4412148376) IMM GRAN x10^3 (test 0.04 10*3/uL 0.00-0.06 code = 3366328773) LYMPH x10^3 (test code 2.76 10*3/uL 1.09-3.23 = 731-0) MONO x10^3 (test code 1.01 10*3/uL 0.36-1.02 = 742-7) EOS x10^3 (test code = 0.09 10*3/uL 0.06-0.53 711-2) BASO x10^3 (test code 0.07 10*3/uL 0.01-0.09 = 704-7) Lab Interpretation Abnormal (test code = 64976-2) [id number] 10:20:57 Test Item Value Reference Range Interpretation Comments NT-proBNP (test code = 473 pg/mL <=125 H 0764821941) OMAYRA (test code = OMAYRA) Biotin has been reported to cause a negative bias, interpret results relative to patient's use of biotin. Lab Interpretation (test Abnormal code = 14060-3) [facility] ([facility]84)(TOTAL CHOLESTEROL, TRIGLYCERIDES, HDL)2022-12-12 10:18:39 Test Item Value Reference Range Interpretation Comments CHOL (test code = 2500747737) 133 mg/dL 120-200 HDL (test code = 6381572577) 38 mg/dL >=40 L HDLC RATIO (test code = 9650485013) 3.5 <=5.0 TRIG (test code = 0634530542) 57 mg/dL 30-170 LDL CHOL (test code = 57405-7) 84 mg/dL <=160 VLDL (test code = 0717368870) 11 mg/dL 5-60 Lab Interpretation (test code = Abnormal 45572-4) [facility] 10:18:19 Test Item Value Reference Range Interpretation Comments MAGNESIUM (test code = 1175889354) 2.0 mg/dL 1.7-2.4 Lab Interpretation (test code = Normal 24058-9) [facility] (NA, K, CL, CO2, GLUCOSE, BUN, CREATININE, CA)2022-12-12 10:18:14 Test Item Value Reference Range Interpretation Comments NA (test code = 130 mmol/L 135-145 L 6078865952) K (test code = 3.7 mmol/L 3.5-5.0 6470318569) CL (test code = 89 mmol/L 98-108 L 5709016148) CO2 TOTAL (test code = 37 mmol/L 23-31 H 4822044136) AGAP (test code = 4 2-16 4068137944) BUN (test code = 13 mg/dL 7-23 0320869044) GLUCOSE (test code = 120 mg/dL 70-110 H 6284551282) CREATININE (test code = 0.56 mg/dL 0.60-1.25 L 8407092899) CALCIUM (test code = 8.3 mg/dL 8.6-10.6 L 5617251940) eGFR (test code = 146.9 mL/min/1.73m2 4756217266) OMAYRA (test code = OMAYRA) Association of [...] tests). Lab Interpretation Abnormal (test code = 28533-0) [facility] 00:54:58 ALCOHOL<10mg/dL12/10/2022 7:54 PM [facility]<10 Tlqavghs79-768 Toxic>100 Depression of PENSION CONSULTANT>400 [facility] [id number] 00:50:14 Test Item Value Reference Range Interpretation Comments TROPONIN I (test code = 0.006 ng/mL <=0.034 5649122537) OMAYRA (test code = OMAYRA) Reference (Normal) [...] biotin. Lab Interpretation Normal (test code = 93634-1) [facility] [id number] 00:47:12 Test Item Value Reference Range Interpretation Comments NT-proBNP (test code = 291 pg/mL <=125 H 1635056329) OMAYRA (test code = OMAYRA) Biotin has been reported to cause a negative bias, interpret results relative to patient's use of biotin. Lab Interpretation (test Abnormal code = 85015-6) [facility]COMP[facility] (47805)2022-12-11 00:41:12 Test Item Value Reference Range Interpretation Comments NA (test code = 126 mmol/L 135-145 L 3517755173) K (test code = 4.0 mmol/L 3.5-5.0 9608493343) CL (test code = 82 mmol/L 98-108 L 3287431669) CO2 TOTAL (test code = 40 mmol/L 23-31 H 9205409805) AGAP (test code = 4 2-16 0221393379) BUN (test code = 16 mg/dL 7-23 0019005267) GLUCOSE (test code = 97 mg/dL 70-110 3075820620) CREATININE (test code = 0.67 mg/dL 0.60-1.25 0399871895) TOTAL BILI (test code = 0.8 mg/dL 0.1-1.5 0511191943) CALCIUM (test code = 8.5 mg/dL 8.6-10.6 L 6860609743) T PROTEIN (test code = 5.9 g/dL 6.3-8.2 L 3354544465) ALBUMIN (test code = 3.5 g/dL 3.5-5.0 9748924456) ALK PHOS (test code = 49 U/L 34-122 9270282227) ALTv (test code = 18 U/L 5-50 1742-6) AST(SGOT) (test code = 11 U/L 13-40 L 0365985598) eGFR (test code = 119.4 mL/min/1.73m2 9351596988) OMAYRA (test code = OMAYRA) Association of [...] tests). Lab Interpretation Abnormal (test code = 67348-0) [facility] WITH [id number] 00:29:08 Test Item Value Reference Range Interpretation [...] RDW-SD (test code = 46.7 fL 38.5-51.6 66141-1) RDW-CV (test code = 13.6 % 12.1-15.4 788-0) PLT (test code = 263 See_Comment [Automated 777-3) message] The sy stem which generated this result transmitted reference range : 150 - 328 10*3/ ?L. The reference r pasquale was not used to interpret this result as normal/abnormal . MPV (test code = 9.7 fL 9.8-13.0 L 16741-5) NRBC/100 WBC (test 0.0 See_Comment [Automat ed code = 8116414526) message] The system which generated this result transmitted reference range : 0.0 - 10.0 /100 WBCs. The refer ence range was not u sed to interpret th is result as normal/abnormal . NRBC x10^3 (test code See_Comment [Auto mated = 0158581747) message] The s ystem which generated this result transmitted reference range : 10*3/?L. The reference range was not used to interpret this result as normal/abnormal . GRAN MAT (NEUT) % 71.6 % (test code = 770-8) IMM GRAN % (test code 0.90 % = 6739335448) LYMPH % (test code = 17.6 % 736-9) MONO % (test code = 8.7 % 5905-5) EOS % (test code = 1.0 % 713-8) BASO % (test code = 0.2 % 706-2) GRAN MAT x10^3(ANC) 7.27 10*3/uL 1.99-6.95 H (test code = 4080664834) IMM GRAN x10^3 (test 0.09 10*3/uL 0.00-0.06 H code = 3293166622) LYMPH x10^3 (test code 1.79 10*3/uL 1.09-3.23 = 731-0) MONO x10^3 (test code 0.88 10*3/uL 0.36-1.02 = 742-7) EOS x10^3 (test code = 0.10 10*3/uL 0.06-0.53 711-2) BASO x10^3 (test code 0.01-0.09 = 704-7) Lab Interpretation Abnormal (test code = 82433-2) [facility] CenterL[facility] Acid Whole [id number] 00:14:48 Test Item Value Reference Range Interpretation Comments LACTIC ACID (test code = 1.30 mmol/L 0.50-2.20 9313117397) Lab Interpretation (test code = Normal 76559-6) [facility] METABOLIC PANEL (NA, K, CL, CO2, GLUCOSE, BUN, CREATININE, CA)2022-12-04 11:06:33 Test Item Value Reference Range Interpretation Comments NA (test code = 123 mmol/L 135-145 L 6264602900) K (test code = 3.8 mmol/L 3.5-5.0 7869024834) CL (test code = 86 mmol/L 98-108 L 8195694841) CO2 TOTAL (test code = 36 mmol/L 23-31 H 1072370783) AGAP (test code = 1 2-16 L 2702247572) BUN (test code = 22 mg/dL 7-23 6381767229) GLUCOSE (test code = 195 mg/dL 70-110 H 8606812468) CREATININE (test code = 0.76 mg/dL 0.60-1.25 5102217212) CALCIUM (test code = 8.2 mg/dL 8.6-10.6 L 4797114638) eGFR (test code = 103.3 mL/min/1.73m2 0771875382) OMAYRA (test code = OMAYRA) Association of [...] tests). Lab Interpretation Abnormal (test code = 45158-7) [facility] WITH [id number] 10:54:29 Test Item Value Reference Range Interpretation [...] RDW-SD (test code = 44.1 fL 38.5-51.6 98656-7) RDW-CV (test code = 13.6 % 12.1-15.4 788-0) PLT (test code = 247 See_Comment [Automated 777-3) message] The sy stem which generated this result transmitted reference range : 150 - 328 10*3/ ?L. The reference r pasquale was not used to interpret this result as normal/abnormal . MPV (test code = 9.5 fL 9.8-13.0 L 03644-6) NRBC/100 WBC (test 0.0 See_Comment [Automat ed code = 2515372865) message] The system which generated this result transmitted reference range : 0.0 - 10.0 /100 WBCs. The refer ence range was not u sed to interpret th is result as normal/abnormal . NRBC x10^3 (test code See_Comment [Auto mated = 0100635830) message] The s ystem which generated this result transmitted reference range : 10*3/?L. The reference range was not used to interpret this result as normal/abnormal . GRAN MAT (NEUT) % 93.0 % (test code = 770-8) IMM GRAN % (test code 0.90 % = 4817104458) LYMPH % (test code = 3.2 % 736-9) MONO % (test code = 2.9 % 5905-5) EOS % (test code = 0.0 % 713-8) BASO % (test code = 0.0 % 706-2) GRAN MAT x10^3(ANC) 7.94 10*3/uL 1.99-6.95 H (test code = 5649278079) IMM GRAN x10^3 (test 0.08 10*3/uL 0.00-0.06 H code = 5041995044) LYMPH x10^3 (test code 0.27 10*3/uL 1.09-3.23 L = 731-0) MONO x10^3 (test code 0.25 10*3/uL 0.36-1.02 L = 742-7) EOS x10^3 (test code = 0.06-0.53 L 711-2) BASO x10^3 (test code 0.01-0.09 = 704-7) Lab Interpretation Abnormal (test code = 94372-6) [facility] Metabolic Panel (NA, K, CL, CO2, GLUCOSE, BUN, CREATININE, CA)2022-12-03 10:44:53 Test Item Value Reference Range Interpretation Comments NA (test code = 126 mmol/L 135-145 L 8420022993) K (test code = 4.0 mmol/L 3.5-5.0 Slight 6325294956) hemolysis CL (test code = 89 mmol/L 98-108 L 7737002751) CO2 TOTAL (test code 32 mmol/L 23-31 H = 5830017029) AGAP (test code = 5 2-16 5163806981) BUN (test code = 15 mg/dL 7-23 Slight 0049471231) hemolysis GLUCOSE (test code = 115 mg/dL 70-110 H 4030987486) CREATININE (test code 0.63 mg/dL 0.60-1.25 = 7879732311) CALCIUM (test code = 7.7 mg/dL 8.6-10.6 L 7110649202) eGFR (test code = 128.2 mL/min/1.73m2 2346439458) OMAYRA (test code = OMAYRA) Association of [...] tests). Lab Interpretation Abnormal (test code = 94264-9) [facility] CenterMagnesium [id number] 10:44:53 Test Item Value Reference Range Interpretation Comments MAGNESIUM (test code = 8471135905) 1.6 mg/dL 1.7-2.4 L Lab Interpretation (test code = Abnormal 26494-2) [facility] with [id number] 10:39:13 Test Item Value Reference Range Interpretation Comments WBC (test code = 11.40 See_Comment H [Automated 3912-2) message] The system which generated this result [...] RDW-SD (test code = 45.4 fL 38.5-51.6 28120-2) RDW-CV (test code = 13.6 % 12.1-15.4 788-0) PLT (test code = 254 See_Comment [Automated 777-3) message] The system which generated this result transmit anirudh reference range : 150 - 328 10*3/ ?L. The reference range was not u sed to interpret th is result as normal/abnormal . MPV (test code = 10.2 fL 9.8-13.0 83173-3) NRBC/100 WBC (test 0.0 See_Comment [Automat ed code = 9189342810) message] The system which generated this result transmit anirudh reference range : 0.0 - 10.0 /100 WBCs. The reference range was not used to interpret this result as normal/abnormal . NRBC x10^3 (test code See_Comment [Auto mated = 1901238962) message] The system which generated this result transmit anirudh reference range : 10*3/?L. The reference range was not used to interpret this result as normal/abnormal . GRAN MAT (NEUT) % 90.0 % (test code = 770-8) IMM GRAN % (test code 0.90 % = 5277671981) LYMPH % (test code = 5.9 % 736-9) MONO % (test code = 2.8 % 5905-5) EOS % (test code = 0.2 % 713-8) BASO % (test code = 0.2 % 706-2) GRAN MAT x10^3(ANC) 10.27 10*3/uL 1.99-6.95 H (test code = 0731956744) IMM GRAN x10^3 (test 0.10 10*3/uL 0.00-0.06 H code = 1112276178) LYMPH x10^3 (test code 0.67 10*3/uL 1.09-3.23 L = 731-0) MONO x10^3 (test code 0.32 10*3/uL 0.36-1.02 L = 742-7) EOS x10^3 (test code = 0.06-0.53 L 711-2) BASO x10^3 (test code 0.01-0.09 = 704-7) Lab Interpretation Abnormal (test code = 22665-8) [facility] METABOLIC PANEL (NA, K, CL, CO2, GLUCOSE, BUN, CREATININE, CA)2022-12-02 06:20:42 Test Item Value Reference Range Interpretation Comments NA (test code = 124 mmol/L 135-145 L 1491507425) K (test code = 4.5 mmol/L 3.5-5.0 5852018420) CL (test code = 78 mmol/L 98-108 L 1397188728) CO2 TOTAL (test code = 37 mmol/L 23-31 H 0333844496) AGAP (test code = 9 2-16 0212630545) BUN (test code = 14 mg/dL 7-23 1450916288) GLUCOSE (test code = 93 mg/dL 70-110 3394882285) CREATININE (test code = 0.71 mg/dL 0.60-1.25 2509656771) CALCIUM (test code = 9.1 mg/dL 8.6-10.6 2226436173) eGFR (test code = 111.7 mL/min/1.73m2 2175749932) OMAYRA (test code = OMAYRA) Association of [...] tests). Lab Interpretation Abnormal (test code = 41035-7) [facility] [id number] 12:22:32 Test Item Value Reference Range Interpretation Comments TROPONIN I (test code = 0.008 ng/mL <=0.034 8109860192) OMAYRA (test code = OMAYRA) Reference (Normal) [...] biotin. Lab Interpretation Normal (test code = 14062-9) [facility] (NA, K, CL, CO2, GLUCOSE, BUN, CREATININE, CA)2022-12-01 12:11:11 Test Item Value Reference Range Interpretation Comments NA (test code = 124 mmol/L 135-145 L 4497050346) K (test code = 4.2 mmol/L 3.5-5.0 9172937968) CL (test code = 79 mmol/L 98-108 L 0372079807) CO2 TOTAL (test code = 37 mmol/L 23-31 H 2521613035) AGAP (test code = 8 2-16 1783267240) BUN (test code = 16 mg/dL 7-23 7894664312) GLUCOSE (test code = 105 mg/dL 70-110 2100325328) CREATININE (test code = 0.67 mg/dL 0.60-1.25 1865493470) CALCIUM (test code = 8.6 mg/dL 8.6-10.6 1754311084) eGFR (test code = 119.4 mL/min/1.73m2 2709103506) OMAYRA (test code = OMAYRA) Association of [...] tests). Lab Interpretation Abnormal (test code = 31885-0) [facility] WITH [id number] 11:59:32 Test Item Value Reference Range Interpretation [...] RDW-SD (test code = 43.8 fL 38.5-51.6 18910-0) RDW-CV (test code = 13.2 % 12.1-15.4 788-0) PLT (test code = 208 See_Comment [Automated 777-3) message] The system which generated this result transmit anirudh reference range : 150 - 328 10*3/ ?L. The reference range was not u sed to interpret th is result as normal/abnormal . MPV (test code = 9.8 fL 9.8-13.0 32182-8) NRBC/100 WBC (test 0.0 See_Comment [Automat ed code = 5900073658) message] The system which generated this result transmit anirudh reference range : 0.0 - 10.0 /100 WBCs. The reference range was not used to interpret this result as normal/abnormal . NRBC x10^3 (test code See_Comment [Auto mated = 2541566452) message] The system which generated this result transmit anirudh reference range : 10*3/?L. The reference range was not used to interpret this result as normal/abnormal . GRAN MAT (NEUT) % 85.9 % (test code = 770-8) IMM GRAN % (test code 0.50 % = 9450837013) LYMPH % (test code = 6.8 % 736-9) MONO % (test code = 6.3 % 5905-5) EOS % (test code = 0.3 % 713-8) BASO % (test code = 0.2 % 706-2) GRAN MAT x10^3(ANC) 10.44 10*3/uL 1.99-6.95 H (test code = 7630686831) IMM GRAN x10^3 (test 0.06 10*3/uL 0.00-0.06 code = 7335758953) LYMPH x10^3 (test code 0.83 10*3/uL 1.09-3.23 L = 731-0) MONO x10^3 (test code 0.77 10*3/uL 0.36-1.02 = 742-7) EOS x10^3 (test code = 0.04 10*3/uL 0.06-0.53 L 711-2) BASO x10^3 (test code 0.03 10*3/uL 0.01-0.09 = 704-7) Lab Interpretation Abnormal (test code = 38227-0) [facility] METABOLIC PANEL (NA, K, CL, CO2, GLUCOSE, BUN, CREATININE, CA)2022-11-28 17:17:23 Test Item Value Reference Range Interpretation Comments NA (test code = 120 mmol/L 135-145 L 2504213522) K (test code = 4.3 mmol/L 3.5-5.0 8175790550) CL (test code = 77 mmol/L 98-108 L 4112610181) CO2 TOTAL (test code = 40 mmol/L 23-31 H 4423854940) AGAP (test code = 3 2-16 4564612513) BUN (test code = 15 mg/dL 7-23 2474612285) GLUCOSE (test code = 151 mg/dL 70-110 H 6850653434) CREATININE (test code = 0.63 mg/dL 0.60-1.25 0001299021) CALCIUM (test code = 8.2 mg/dL 8.6-10.6 L 8218955925) eGFR (test code = 128.2 mL/min/1.73m2 6707306393) OMAYRA (test code = OMAYRA) Association of [...] tests). Lab Interpretation Abnormal (test code = 90082-2) [facility] 06:54:10 Test Item Value Reference Range Interpretation Comments MAGNESIUM (test code = 3431808959) 1.6 mg/dL 1.7-2.4 L Lab Interpretation (test code = Abnormal 58226-8) [facility] (NA, K, CL, CO2, GLUCOSE, BUN, CREATININE, CA)2022-11-28 01:29:53 Test Item Value Reference Range Interpretation Comments NA (test code = 120 mmol/L 135-145 L 4598691244) K (test code = 3.9 mmol/L 3.5-5.0 7507090452) CL (test code = 77 mmol/L 98-108 L 2333014282) CO2 TOTAL (test code = 36 mmol/L 23-31 H 8939102837) AGAP (test code = 7 2-16 1707541043) BUN (test code = 17 mg/dL 7-23 4998862538) GLUCOSE (test code = 85 mg/dL 70-110 0288472982) CREATININE (test code = 0.76 mg/dL 0.60-1.25 0062919129) CALCIUM (test code = 8.3 mg/dL 8.6-10.6 L 2760848810) eGFR (test code = 103.3 mL/min/1.73m2 5093396522) OMAYRA (test code = OMAYRA) Association of [...] tests). Lab Interpretation Abnormal (test code = 67370-8) [facility] METABOLIC PANEL (NA, K, CL, CO2, GLUCOSE, BUN, CREATININE, CA)2022-11-27 20:36:26 Test Item Value Reference Range Interpretation Comments NA (test code = 122 mmol/L 135-145 L 8966839122) K (test code = 3.9 mmol/L 3.5-5.0 8763083310) CL (test code = 79 mmol/L 98-108 L 5976356860) CO2 TOTAL (test code = 37 mmol/L 23-31 H 5888028122) AGAP (test code = 6 2-16 9293640512) BUN (test code = 17 mg/dL 7-23 6021203881) GLUCOSE (test code = 113 mg/dL 70-110 H 8685396598) CREATININE (test code = 0.78 mg/dL 0.60-1.25 4420505770) CALCIUM (test code = 7.8 mg/dL 8.6-10.6 L 2913679784) eGFR (test code = 100.2 mL/min/1.73m2 4779221932) OMAYRA (test code = OMAYRA) Association of [...] tests). Lab Interpretation Abnormal (test code = 76138-8) [facility]A1C)2022-11-27 18:21:30 Test Item Value Reference Range Interpretation Comments HGB A1C (test code = 5.9 % 4.0-5.7 H 4548-4) OMAYRA (test code = OMAYRA) Reference RangesNormal: <5.7%Prediabetes: 5.7 - 6.4%Diabetes: > 6.5% Lab Interpretation (test Abnormal code = 01746-0) [facility]TR[facility] [id number] 06:12:58 Test Item Value Reference Range Interpretation Comments TROPONIN I (test code = 0.007 ng/mL <=0.034 9439445498) OMAYRA (test code = OMAYRA) Reference (Normal) [...] biotin. Lab Interpretation Normal (test code = 59156-9) [facility] 06:10:43 ALCOHOL<10mg/dL11/27/2022 12:10 AM [facility]<10 Abksbvuh97-273 Toxic>100 Depression of PENSION CONSULTANT>400 [facility]ities [facility]UnC[facility]andN-TERMINAL [id number] 06:09:37 Test Item Value Reference Range Interpretation Comments NT-proBNP (test code = 311 pg/mL <=125 H 5197491353) OMAYRA (test code = OMAYRA) Biotin has been reported to cause a negative bias, interpret results relative to patient's use of biotin. Lab Interpretation (test Abnormal code = 41172-5) [facility]. METABOLIC PANEL (70307)2022-11-27 06:08:02 Test Item Value Reference Range Interpretation Comments NA (test code = 116 mmol/L 135-145 LL 6273392967) K (test code = 4.1 mmol/L 3.5-5.0 8019875145) CL (test code = 75 mmol/L 98-108 L 6038147775) CO2 TOTAL (test code = 34 mmol/L 23-31 H 2546595930) AGAP (test code = 7 2-16 0392221792) BUN (test code = 16 mg/dL 7-23 8860499110) GLUCOSE (test code = 70 mg/dL 70-110 7195244477) CREATININE (test code = 0.62 mg/dL 0.60-1.25 5309314837) TOTAL BILI (test code = 1.2 mg/dL 0.1-1.1 H 8050851977) CALCIUM (test code = 8.1 mg/dL 8.6-10.6 L 2125269027) T PROTEIN (test code = 6.3 g/dL 6.3-8.2 2342280546) ALBUMIN (test code = 3.8 g/dL 3.5-5.0 7555312398) ALK PHOS (test code = 58 U/L 34-122 9405663726) ALTv (test code = 15 U/L 5-50 1742-6) AST(SGOT) (test code = 13 U/L 13-40 5708918088) eGFR (test code = 130.6 mL/min/1.73m2 9454869472) OMAYRA (test code = OMAYRA) Association of [...] tests). Lab Interpretation Abnormal (test code = 08323-6) [facility] WITH [id number] 05:45:18 Test Item Value Reference Range Interpretation Comments WBC (test code = 9.18 See_Comment [Automated 8596-2) message] The sy stem which generated this result transmitted reference range : 4.20 - 10.70 10*3/?L. The reference range was not used to interpret this result as normal/abnormal . RBC (test code = 4.49 See_Comment [Automated 758-8) message] The sy stem which generated this [...] RDW-SD (test code = 40.1 fL 38.5-51.6 44861-6) RDW-CV (test code = 12.6 % 12.1-15.4 788-0) PLT (test code = 216 See_Comment [Automated 260-3) message] The sy stem which generated this result transmitted reference range : 150 - 328 10*3/ ?L. The reference r pasquale was not used to interpret this result as normal/abnormal . MPV (test code = 9.4 fL 9.8-13.0 L 14928-9) NRBC/100 WBC (test 0.0 See_Comment [Automat ed code = 9283006909) message] The system which generated this result transmitted reference range : 0.0 - 10.0 /100 WBCs. The refer ence range was not u sed to interpret th is result as normal/abnormal . NRBC x10^3 (test code See_Comment [Auto mated = 7933585083) message] The s ystem which generated this result transmitted reference range : 10*3/?L. The reference range was not used to interpret this result as normal/abnormal . GRAN MAT (NEUT) % 79.1 % (test code = 770-8) IMM GRAN % (test code 0.90 % = 0920042708) LYMPH % (test code = 11.8 % 736-9) MONO % (test code = 6.8 % 5905-5) EOS % (test code = 1.2 % 713-8) BASO % (test code = 0.2 % 706-2) GRAN MAT x10^3(ANC) 7.27 10*3/uL 1.99-6.95 H (test code = 4069782348) IMM GRAN x10^3 (test 0.08 10*3/uL 0.00-0.06 H code = 3410504358) LYMPH x10^3 (test code 1.08 10*3/uL 1.09-3.23 L = 731-0) MONO x10^3 (test code 0.62 10*3/uL 0.36-1.02 = 742-7) EOS x10^3 (test code = 0.11 10*3/uL 0.06-0.53 711-2) BASO x10^3 (test code 0.01-0.09 = 704-7) Lab Interpretation Abnormal (test code = 47824-9) [id number] Test Item Value Reference Range Interpretation Comments NT-proBNP (test code = 294 pg/mL <=125 H 0596251405) OMAYRA (test code = OMAYRA) Biotin has been reported to cause a negative bias, interpret results relative to patient's use of biotin. Lab Interpretation (test Abnormal code = 69338-5) [facility]. METABOLIC PANEL (33078)2022-11-19 09:41:52 Test Item Value Reference Range Interpretation Comments NA (test code = 120 mmol/L 135-145 L 6784660287) K (test code = 4.4 mmol/L 3.5-5.0 2447952147) CL (test code = 80 mmol/L 98-108 L 2502777850) CO2 TOTAL (test code = 34 mmol/L 23-31 H 4492216008) AGAP (test code = 6 2-16 3868156656) BUN (test code = 10 mg/dL 7-23 1634663508) GLUCOSE (test code = 93 mg/dL 70-110 5980053104) CREATININE (test code = 0.77 mg/dL 0.60-1.25 0748505348) TOTAL BILI (test code = 1.1 mg/dL 0.1-1.7 0969744558) CALCIUM (test code = 8.7 mg/dL 8.6-10.6 4008902939) T PROTEIN (test code = 6.9 g/dL 6.3-8.2 1282315087) ALBUMIN (test code = 4.1 g/dL 3.5-5.0 5905225465) ALK PHOS (test code = 60 U/L 34-122 5222387586) ALTv (test code = 14 U/L 5-50 1742-6) AST(SGOT) (test code = 13 U/L 13-40 6941457074) eGFR (test code = 101.7 mL/min/1.73m2 4050457728) OMAYRA (test code = OMAYRA) Association of [...] tests). Lab Interpretation Abnormal (test code = 62353-9) [facility] WITH [id number] 09:02:29 Test Item Value Reference Range Interpretation Comments WBC (test code = 8.30 See_Comment [Automated 6915-2) message] The sy stem which generated this result transmitted reference range : 4.20 - 10.70 10*3/?L. The reference range was not used to interpret this result as normal/abnormal . RBC (test code = 4.67 See_Comment [Automated 347-8) message] The sy stem which generated this [...] RDW-SD (test code = 42.3 fL 38.5-51.6 80983-4) RDW-CV (test code = 12.9 % 12.1-15.4 788-0) PLT (test code = 252 See_Comment [Automated 777-3) message] The sy stem which generated this result transmitted reference range : 150 - 328 10*3/ ?L. The reference r pasquale was not used to interpret this result as normal/abnormal . MPV (test code = 9.6 fL 9.8-13.0 L 97096-5) NRBC/100 WBC (test 0.0 See_Comment [Automat ed code = 6613156823) message] The system which generated this result transmitted reference range : 0.0 - 10.0 /100 WBCs. The refer ence range was not u sed to interpret th is result as normal/abnormal . NRBC x10^3 (test code See_Comment [Auto mated = 0392595633) message] The s ystem which generated this result transmitted reference range : 10*3/?L. The reference range was not used to interpret this result as normal/abnormal . GRAN MAT (NEUT) % 70.7 % (test code = 770-8) IMM GRAN % (test code 1.00 % = 3943260049) LYMPH % (test code = 16.0 % 736-9) MONO % (test code = 10.5 % 5905-5) EOS % (test code = 1.3 % 713-8) BASO % (test code = 0.5 % 706-2) GRAN MAT x10^3(ANC) 5.87 10*3/uL 1.99-6.95 (test code = 7999188550) IMM GRAN x10^3 (test 0.08 10*3/uL 0.00-0.06 H code = 2249982922) LYMPH x10^3 (test code 1.33 10*3/uL 1.09-3.23 = 731-0) MONO x10^3 (test code 0.87 10*3/uL 0.36-1.02 = 742-7) EOS x10^3 (test code = 0.11 10*3/uL 0.06-0.53 711-2) BASO x10^3 (test code 0.04 10*3/uL 0.01-0.09 = 704-7) Lab Interpretation Abnormal (test code = 98238-6) [facility] METABOLIC PANEL (NA, K, CL, CO2, GLUCOSE, BUN, CREATININE, CA)2022-11-10 23:42:55 Test Item Value Reference Range Interpretation Comments NA (test code = 121 mmol/L 135-145 L 6284470325) K (test code = 4.7 mmol/L 3.5-5.0 9722857363) CL (test code = 82 mmol/L 98-108 L 8763843284) CO2 TOTAL (test code = 34 mmol/L 23-31 H 9011708303) AGAP (test code = 5 2-16 4948070528) BUN (test code = 15 mg/dL 7-23 6518067916) GLUCOSE (test code = 120 mg/dL 70-110 H 7253024371) CREATININE (test code = 0.75 mg/dL 0.60-1.25 5507020619) CALCIUM (test code = 7.7 mg/dL 8.6-10.6 L 8406159853) eGFR (test code = 104.8 mL/min/1.73m2 6289427677) OMAYRA (test code = OMAYRA) Association of [...] tests). Lab Interpretation Abnormal (test code = 52969-9) [facility] METABOLIC PANEL (NA, K, CL, CO2, GLUCOSE, BUN, CREATININE, CA)2022-11-10 17:59:59 Test Item Value Reference Range Interpretation Comments NA (test code = 121 mmol/L 135-145 L 0712186146) K (test code = 4.3 mmol/L 3.5-5.0 6236715288) CL (test code = 81 mmol/L 98-108 L 3913266323) CO2 TOTAL (test code = 38 mmol/L 23-31 H 9265489054) AGAP (test code = 2 2-16 7661452365) BUN (test code = 15 mg/dL 7-23 1629117015) GLUCOSE (test code = 113 mg/dL 70-110 H 3068340518) CREATININE (test code = 0.74 mg/dL 0.60-1.25 4031317426) CALCIUM (test code = 7.5 mg/dL 8.6-10.6 L 1517194612) eGFR (test code = 106.5 mL/min/1.73m2 9996503552) OMAYRA (test code = OMAYRA) Association of [...] tests). Lab Interpretation Abnormal (test code = 75573-4) [id number] 13:08:23 Test Item Value Reference Range Interpretation Comments NT-proBNP (test code = 177 pg/mL <=125 H 9132414484) OMAYRA (test code = OMAYRA) Biotin has been reported to cause a negative bias, interpret results relative to patient's use of biotin. Lab Interpretation (test Abnormal code = 26229-9) [facility] [id number] 08:23:33 Test Item Value Reference Range Interpretation Comments TROPONIN I (test code = 0.004 ng/mL <=0.034 3223685467) OMAYRA (test code = OMAYRA) Reference (Normal) [...] biotin. Lab Interpretation Normal (test code = 71985-2) [facility]. METABOLIC PANEL (39821)2022-11-09 08:12:09 Test Item Value Reference Range Interpretation Comments NA (test code = 123 mmol/L 135-145 L 0478056465) K (test code = 4.2 mmol/L 3.5-5.0 1793258505) CL (test code = 78 mmol/L 98-108 L 6852717354) CO2 TOTAL (test code = 34 mmol/L 23-31 H 9412436715) AGAP (test code = 11 2-16 3118587746) BUN (test code = 8 mg/dL 7-23 0762248864) GLUCOSE (test code = 113 mg/dL 70-110 H 6657396170) CREATININE (test code = 0.87 mg/dL 0.60-1.25 0879618953) TOTAL BILI (test code = 1.2 mg/dL 0.1-1.1 H 6008568233) CALCIUM (test code = 8.8 mg/dL 8.6-10.6 7270056293) T PROTEIN (test code = 7.6 g/dL 6.3-8.2 6349107362) ALBUMIN (test code = 4.5 g/dL 3.5-5.0 5179137021) ALK PHOS (test code = 72 U/L 34-122 8783232679) ALTv (test code = 13 U/L 5-50 1742-6) AST(SGOT) (test code = 13 U/L 13-40 4793300615) eGFR (test code = 88.3 mL/min/1.73m2 9154213975) OMAYRA (test code = OMAYRA) Association of [...] tests). Lab Interpretation Abnormal (test code = 59257-8) [facility] [id number] 08:11:14 Test Item Value Reference Range Interpretation Comments LIPASE (test code = 2633721286) 108 U/L 0-220 Lab Interpretation (test code = Normal 64327-1) [facility] WITH [id number] 07:59:28 Test Item Value Reference Range Interpretation Comments WBC (test code = 8.95 See_Comment [Automated message] 7890-2) The system [employer] generated this result transmitted ref erence range: 4.20 - 1 0.70 10*3/?L. The re ference range was not u sed to interpret this result as normal/abnor mal. RBC (test code = 5.07 See_Comment [Automated message] 209-8) The system [employer] generated this result transmitted ref erence range: [...] RDW-SD (test code 41.1 fL 38.5-51.6 = 05689-4) RDW-CV (test code 12.5 % 12.1-15.4 = 788-0) PLT (test code = 235 See_Comment [Automated message] 777-3) The system whic h generated this result transmitted ref erence range: 150 - 32 8 10*3/?L. The re ference range was not u sed to interpret this result as normal/abnor mal. MPV (test code = 9.8 fL 9.8-13.0 13334-8) NRBC/100 WBC (test 0.0 See_Comment [Automat ed message] code = 4254241779) The syste m which generated this result transmitted ref erence range: 0.0 - 10 .0 /100 WBCs. The refer ence range was not u sed to interpret this result as normal/abnor mal. NRBC x10^3 (test See_Comment [Automated message] code = 2676843542) The syste m which generated this result transmitted ref erence range: 10*3/?L. The reference range was not used to interpr et this result as normal/abnormal . GRAN MAT (NEUT) % 56.9 % (test code = 770-8) IMM GRAN % (test 0.40 % code = 8086435236) LYMPH % (test code 29.4 % = 736-9) MONO % (test code 9.5 % = 5905-5) EOS % (test code = 3.0 % 713-8) BASO % (test code 0.8 % = 706-2) GRAN MAT 5.09 10*3/uL 1.99-6.95 x10^3(ANC) (test code = 0499737775) IMM GRAN x10^3 0.04 10*3/uL 0.00-0.06 (test code = 5950153737) LYMPH x10^3 (test 2.63 10*3/uL 1.09-3.23 code = 731-0) MONO x10^3 (test 0.85 10*3/uL 0.36-1.02 code = 742-7) EOS x10^3 (test 0.27 10*3/uL 0.06-0.53 code = 711-2) BASO x10^3 (test 0.07 10*3/uL 0.01-0.09 code = 704-7) [facility] URINALYSIS, [id number] 19:05:00 Test Item Value Reference Range Interpretation [...] U APPEAR (test code = clear 3267) [facility] URINALYSIS, [id number] 19:05:00 Test Item Value Reference Range Interpretation [...] U APPEAR (test code = clear 3267) [facility] URINALYSIS, [id number] 19:05:00 Test Item Value Reference Range Interpretation [...] U APPEAR (test code = clear 3267) [facility] [id number] 17:53:531. ?No hydronephrosis or nephrolithiasis. 2. ?Mild [...] hernia with mild circumferential distalesophageal thickening (2:16). Outing density within the distal stomach andat the [...] hernia with mild circumferential distalesophageal thickening (2:16). Outing density within the distal stomach andat the [...] small right hydrocele.5. Additional findings as above. [facility]inalysis[facility] 17:37:38 Test Item Value Reference Range Interpretation Comments APPEARANCE (test code = Cloudy Clear A 5809992437) COLOR (test code = Red Yellow A 2303173981) PH (test code = 4.8-8.0 7782032430) SP GRAVITY (test code = 1.003-1.030 8630337093) GLU U QUAL (test code = 50 mg/dL Normal A 0879150118) BLOOD (test code = 3+ Negative A 0907023341) KETONES (test code = Negative Negative 2555247213) PROTEIN (test code = 100 mg/dL Negative A 2887-8) UROBILIN (test code = Normal Normal 5458821883) BILIRUBIN (test code = Negative Negative 9251233127) NITRITE (test code = Negative Negative 6792546327) LEUK DIANELYS (test code = Negative Negative 0800697601) RBC/HPF (test code = >182 See_Comment H [Autom ated message] 0571202258) The system [employer] generated this result transmit anirudh reference range : 0 - 3 HPF. The refe rence range was not u sed to interpret th is result as normal/abnormal . WBC/HPF (test code = >182 See_Comment H [Autom ated message] 1104187312) The system [employer] generated this result transmit anirudh reference range : 0 - 5 HPF. The refe rence range was not u sed to interpret th is result as normal/abnormal . BACTERIA (test code = Moderate Negative A 5719476976) WBC CLUMPS (test code = See_Comment H [Au tomated message] 5828945130) The system [employer] generated this result transmit anirudh reference range : <=1 HPF. The refere nce range was not u sed to interpret th is result as normal/abnormal . Lab Interpretation (test Abnormal code = 62513-7) [facility] Metabolic Panel (NA, K, CL, CO2, GLUCOSE, BUN, CREATININE, CA)2020-12-12 17:13:57 Test Item Value Reference Range Interpretation Comments NA (test code = 140 mmol/L 135-145 4855275505) K (test code = 4.5 mmol/L 3.5-5.0 4538362761) CL (test code = 100 mmol/L 98-108 1090028582) CO2 TOTAL (test code = 35 mmol/L 23-31 H 8712849840) AGAP (test code = 2-16 5209068949) BUN (test code = 25 mg/dL 7-23 H 3219100564) GLUCOSE (test code = 114 mg/dL 70-110 H 8854537417) CREATININE (test code = 1.18 mg/dL 0.60-1.25 1446422756) CALCIUM (test code = 9.0 mg/dL 8.6-10.6 2179288128) eGFR Calculation mL/min/1.73m2 (Non-) (test code = 3295787668) eGFR Calculation mL/min/1.73m2 () (test code = 5220273047) OMAYRA (test code = OMAYRA) Association of [...] tests). Lab Interpretation Abnormal (test code = 28750-2) [facility] with [id number] 16:56:10 Test Item Value Reference Range Interpretation Comments WBC (test code = See_Comment [Automated 7190-2) message] The sy stem which generated this result transmitted reference range : 4.20 - 10.70 10*3/?L. The reference range was not used to interpret this result as normal/abnormal . RBC (test code = See_Comment [Automated 009-8) message] The sy stem which generated this [...] RDW-SD (test code = 42.9 fL 38.5-51.6 09747-3) RDW-CV (test code = 11.9 % 12.1-15.4 L 788-0) PLT (test code = See_Comment [Automated 777-3) message] The sy stem which generated this result transmitted reference range : 150 - 328 10*3/ ?L. The reference r pasquale was not used to interpret this result as normal/abnormal . MPV (test code = 10.8 fL 9.8-13.0 59455-4) NRBC/100 WBC (test See_Comment [Automat ed code = 5709075501) message] The system which generated this result transmitted reference range : 0.0 - 10.0 /100 WBCs. The refer ence range was not u sed to interpret th is result as normal/abnormal . NRBC x10^3 (test code <0.01 See_Comment [Auto mated = 2272619998) message] The s ystem which generated this result transmitted reference range : 10*3/?L. The reference range was not used to interpret this result as normal/abnormal . GRAN MAT (NEUT) % 63.5 % (test code = 770-8) IMM GRAN % (test code 0.40 % = 8029205660) LYMPH % (test code = 23.9 % 736-9) MONO % (test code = 6.7 % 5905-5) EOS % (test code = 4.3 % 713-8) BASO % (test code = 1.2 % 706-2) GRAN MAT x10^3(ANC) 4.27 10*3/uL 1.99-6.95 (test code = 2770532572) IMM GRAN x10^3 (test 0.03 10*3/uL 0.00-0.06 code = 8599610682) LYMPH x10^3 (test code 1.61 10*3/uL 1.09-3.23 = 731-0) MONO x10^3 (test code 0.45 10*3/uL 0.36-1.02 = 742-7) EOS x10^3 (test code = 0.29 10*3/uL 0.06-0.53 711-2) BASO x10^3 (test code 0.08 10*3/uL 0.01-0.09 = 704-7) Lab Interpretation Abnormal (test code = 31356-7) [facility] URINALYSIS, [id number] 18:56:00 Test Item Value Reference Range Interpretation [...] 3267) Lab Interpretation (test code Abnormal = 56989-8) [facility] [id number] 18:56:00 Test Item Value Reference Range Interpretation [...] 3267) Lab Interpretation (test code Abnormal = 30697-1) [facility]- [facility] CHEST [id number] 16:22:00 Patient Name: JUAN C MONGE Unit No: [id number] EXAMS: CPT CODE: [id number] XR CHEST 1V 34070 EXAMINATION: - XR CHEST 1V. LOCATION: B2. HISTORY: S/P ICD. COMPARISON: None. TECHNIQUE: Single AP view of the chest was obtained. FINDINGS: The right lung apex is excluded from the eyqjf-bj-oijn. The heart is normal in size. Left AICD device is present. The lungs are clear. No acute osseous abnormality is i dentified. IMPRESSION: The right lung apex is excluded from the oampv-vs-berm. No acute cardiopulmonary abnormality is identified. at 1622 Reported and signed by: Latanya Marshall MD CC: Tyrell Mckeon Technologist: JOSELYN Mathews, RT(R) Transcrpt Date/Tm/Trnsp: 06/19/2020 (1622) t.SDR.PR7 Orig Print D/T: S: 06/19/2020 (7154) [facility] [address] PHYS: [place] [address] : 1960 AGE: 59 SEX: M LOC: Z.354 A PHONE #: [phone] EXAM DATE: 06/19/2020 STATUS: ADM IN FAX #: [phone] RADIOLOGY NO: PAGE 1 Signed ReportBASIC METABOLIC [id number] 13:17:00 Test Item Value Reference Range Interpretation [...] code = MG/DL 8.7-9.7 CA) Comments to Cab Station Attendant: NURSE WILL BRING SPECIMEN TO LABIs this a LINE draw? N [id number] 13:17:00 Test Item Value Reference Range Interpretation Comments MAGNESIUM (test code = MAG) MG/DL 1.6-2.3 Comments to Cab Station Attendant: NURSE WILL BRING SPECIMEN TO LABIs this a LINE draw? N BASIC METABOLIC [id number] 13:17:00 Test Item Value Reference Range Interpretation [...] 9.1 MG/DL 8.4-10.2 N CA) Comments to Cab Station Attendant: NURSE WILL BRING SPECIMEN TO LABIs this a LINE draw? N [id number] 13:17:00 Test Item Value Reference Range Interpretation Comments MAGNESIUM (test code = MAG) 2.2 MG/DL 1.6-2.3 N Comments to Cab Station Attendant: NURSE WILL BRING SPECIMEN TO LABIs this a LINE draw? N BASIC METABOLIC [id number] 13:16:00 Test Item Value Reference Range Interpretation [...] code = MG/DL 8.7-9.7 CA) Comments to Cab Station Attendant: NURSE WILL BRING SPECIMEN TO LABIs this a LINE draw? N [id number] 13:16:00 Test Item Value Reference Range Interpretation Comments MAGNESIUM (test code = MAG) MG/DL 1.6-2.3 Comments to Cab Station Attendant: NURSE WILL BRING SPECIMEN TO LABIs this a LINE draw? N BASIC METABOLIC [id number] 13:14:00 Test Item Value Reference Range Interpretation [...] code = CA) MG/DL 8.7-9.7 Comments to Cab Station Attendant: NURSE WILL BRING SPECIMEN TO LABIs this a LINE draw? N [id number] 13:14:00 Test Item Value Reference Range Interpretation Comments MAGNESIUM (test code = MAG) MG/DL 1.6-2.3 Comments to Cab Station Attendant: NURSE WILL BRING SPECIMEN TO LABIs this a LINE draw? N BASIC METABOLIC [id number] 13:13:00 Test Item Value Reference Range Interpretation [...] code = CA) MG/DL 8.7-9.7 Comments to Cab Station Attendant: NURSE WILL BRING SPECIMEN TO LABIs this a LINE draw? N [id number] 13:13:00 Test Item Value Reference Range Interpretation Comments MAGNESIUM (test code = MAG) MG/DL 1.6-2.3 Comments to Cab Station Attendant: NURSE WILL BRING SPECIMEN TO LABIs this a LINE draw? N PROTHROMBIN [id number] 13:08:00 Test Item Value Reference Range Interpretation [...] myocar dial infarction. 2.0 - 3.0 3. Protective Signal Repairer Helper al prosthesis hear t valves, recurre nt systemic emboli sm. 3.0 - 4.5 Comments to Cab Station Attendant: NURSE WILL BRING SPECIMEN TO LABPTT ACTIVATED 2020-06-19 13:08:00 Test Item Value Reference Range Interpretation Comments PTT ACTIVATED (test code = APTT) 30.8 SECONDS 25.1-36.5 N Comments to Cab Station Attendant: NURSE WILL BRING SPECIMEN TO LABCBC W/AUTO [...] 0.00 K/mm3 0.0-0.1 N NRBC#) Comments to Cab Station Attendant: NURSE WILL BRING SPECIMEN TO LABIs this a LINE draw? N COVID 19 Asymptomatic IH [id number] 12:14:00 Test Item Value Reference Range Interpretation [...] Notes Date/Time Note Provider Source 2023-03-20 00:11:00-00:00 [facility] ([facility]) Hospitalist Discharge Summary REPORT#:[id number] REPORT STATUS: Signed DATE:03/20/23 TIME: 0011 PATIENT: JUAN C MONGE UNIT #: [id number] RO[facility]ED[facility] : 58 AGE: 62 SEX: M ATTEND: Rduy Xiao ADM AUTHOR: Rudy Xiao MD * ALL edits or amendments must be made on the el [employer]/computer document * General Information Discharge date: 03/19/23 [...] cigarette smoking or nicotine patches. PLAN - Assistant Guest Services Manager on cessation - Cont. nicotine patch PATIENT [...] cigarette smoking or nicotine patches. PLAN - Assistant Guest Services Manager on cessation - Cont. nicotine patch Code [...] DAILY. Comments: #30 - SIG Obtained From [facility] CARVEDILOL (COREG) 3.125 MG TAB 3.125 MILLIGRAM [...] 8 07/ 1000 O2 Delivery Nasal cannula 07/ 0800 O2 Flow Rate 2 07/ 0800 FiO2 40 / 0718 24 hour I O ending at 0700: 07/ 0700 07/ 1900 Intake Total 1547.00 Output [...] normal inspection, painless ran ge of motion Neuro/PENSION CONSULTANT: alert, normal speech Skin: dry Psychiatry: abnl [...] or < 18.5 BMI status/follow-up: nml BMI,no counseling aide needed Electronically Signed by Rudy Xiao MD on 3 at 0016 RPT #:[id number] END OF REPORT 2023-03-19 12:19:00-00:00 [facility] ([facility] Cardiology Progress Note REPORT#:[id number] REPORT STATUS: Signed DATE:03/19/23 TIME: 1219 PATIENT: UJAN C MONGE UNIT #: [id number] ROOM/BED: [address] : 56 AGE: 62 SEX: M ATTEND: Rudy Xiao ADM AUTHOR: Tyrell Mckeon MD * ALL edits or amendments must be made on the [employer] document * Subjective Chief complaint: Dyspnea Patient [...] 03/19 1000 93 8 138/69 97 100 07/01 0900 81 19 130/66 92 99 07/01 0800 Nasal 2 cannula 03/19 0800 96 18 129/63 90 96 07/01 0735 97.7 07 0718 99 Nasal 5 40 cannula 03/19 [...] no edema Musculoskeletal: full range of motion Neuro/PENSION CONSULTANT: alert, oriented X 3, CN II-XII intact [...] f/u with Dr. Tenorio as outpatient. at [address] [place] [address] #:[phone] END OF REPORT 2023-03-18 15:47:00-00:00 [facility]CAWU [address] [place] [address] PATIENT NAME: JUAN C MONGE ADMIT DATE: 03/15/23 ACCOUNT NO: [id number] ROOM NO: Z.347 AGE: 62 REPORT TYPE: ECHOCARDIOGRAM SEX: M ADMITTING PHYSICIAN:Rudy Xiao MD ATTENDING PHYSICIAN:Rudy Xiao MD *[facility]* [address] [place] [address] Transthoracic Echocardiogram Patient: Juan C Monge Study Date: 03/18/2023 BP: 122 / 66 Location: [facility] URN: [id number] 222 : 1960 Age: 62 Height: 70 in / 177.8 cm Gender: M Weight: 149 .7 lb / 68 kg BMI/BSA: 21.5 kg/m 2 / 1.83 m 2 *Ordering Physician: * Omid Tenorio MD *Interpreting Physician: * Omid Tenorio MD *Silk Hanger: Vick Galdamez Indications: CAD. Study data: Transthoracic echocardiogram. Proced ure: Transthoracic echocardiography was performed. Images were obta ined using a [employer] cardiac ultrasound machine. Image quality was adequate. [...] 2.46 m/sec --------- Pulmonic valve Value Ref [place] v, ED 0.94 m/sec --------- Aortic root [...] by Omid Tenorio MD 03/18/2023 15:47 at 1549 PATIENT NAME: JUAN C MONGE 2023-03-18 10:16:00-00:00 [facility] ([facility]) Hospitalist Progress Note REPORT#:[id number] REPORT STATUS: Signed DATE:03/18/23 TIME: 1016 PATIENT: JUAN C MONGE UNIT #: [id number] ROOM/BED: [address] : 56 AGE: 62 SEX: M ATTEND: Rudy Xiao ADM AUTHOR: Jenny Meyers MD R2 * ALL edits or amendments must be made on the [employer]/computer document * Jenny Meyers 03/18/23 1016: Subjective Chief complaint: SOB, hypotension HPI: 62 yo M with PMH of COPD on 2L NC, Hypertension, Anxiety, Systolic CHF s/p AICD, Afib on xarelto, CVA and dementia presented as a transfer from [facility] for evaluation of shortness of breath. Pt [...] normal inspection, painless ran ge of motion Neuro/PENSION CONSULTANT: alert, normal speech Skin: dry Psychiatry: abnl [...] cigarette smoking or nicotine patches. PLAN - Assistant Guest Services Manager on cessation - Cont. nicotine patch Code [...] or < 18.5 BMI status/follow-up: nml BMI,no counseling aide needed Attestations Attestation needed: teaching physician Rudy Xiao 03/18/23 1743: Attestations Teaching Physician Attestation F/U visit w/ resident: I saw the patient with the resident and . . . agree with the resident's findings and plan. echo unremarkable await aicd interrogation dvt ppx: on xarelto at 1023 Electronically Signed by Rudy Xiao MD on 3 at 1743 RPT #:[id number] END OF REPORT 2023-03-18 06:54:00-00:00 [facility] ([facility] Cardiology Progress Note REPORT#:[id number] REPORT STATUS: Signed DATE:03/18/23 TIME: 653 PATIENT: JUAN C MONGE UNIT #: [id number] ROOM/BED: [address] : 56 AGE: 62 SEX: M ATTEND: Rudy Xiao ADM AUTHOR: Tyrell Mckeon MD * ALL edits or amendments must be made on the [employer]/computer document * Subjective Chief complaint: Dyspnea Patient [...] no edema Musculoskeletal: full range of motion Neuro/PENSION CONSULTANT: alert, oriented X 3, CN II-XII intact [...] Oxygen support as needed. at 1220 RPT #:[id number] END OF REPORT 2023-03-17 13:48:00-00:00 [facility] ([facility] Hospitalist Progress Note REPORT#:[id number] REPORT STATUS: Signed DATE:03/17/23 TIME: 1347 PATIENT: JUAN C MONGE UNIT #: [id number] ROOM/BED: [address] : 56 AGE: 62 SEX: M ATTEND: Rudy Xiao ADM AUTHOR: Jenny Meyers MD R2 * ALL edits or amendments must be made on the [employer]/computer document * Jenny Meyers 03/17/23 1348: Subjective Chief complaint: SOB, hypotension HPI: 62 yo M with PMH of COPD on 2L NC, Hypertension, Anxiety, Systolic CHF s/p AICD, Afib on xarelto, CVA and dementia presented as a transfer from [facility] for evaluation of shortness of breath. Pt [...] normal inspection, painless ran ge of motion Neuro/PENSION CONSULTANT: alert, oriented X 3, normal speech Skin: [...] cigarette smoking or nicotine patches. PLAN - Assistant Guest Services Manager on cessation - Cont. nicotine patch Code [...] or < 18.5 BMI status/follow-up: nml BMI,no counseling aide needed Attestations Attestation needed: teaching physician Rudy Xiao 03/17/23 1405: Attestations Teaching Physician Attestation F/U visit w/ resident: I saw the patient with the resident and . . . agree with the resident's findings and plan. await echo and aicd interrogation cont xarenetta has home o2 at 1511 Electronically Signed by Rudy Xiao MD on 3 at 0024 RPT #:[id number] END OF REPORT 2023-03-17 06:38:00-00:00 [facility] ([facility]) Cardiology Progress Note REPORT#:[id number] REPORT STATUS: Signed DATE:03/17/23 TIME: 0638 PATIENT: JUAN C MONGE UNIT #: [id number] ROOM/BED: [address] : 56 AGE: 62 SEX: M ATTEND: Rudy Xiao MD ADM AUTHOR: Tyrell Mckeon MD * ALL edits or amendments must be made on the [employer] document * Subjective Chief complaint: Dyspnea Patient [...] cannula 03/16 0705 94 Nasal 4 cannula 06/28 0700 76 17 110/56 77 92 PATIENT [...] no edema Musculoskeletal: full range of motion Neuro/PENSION CONSULTANT: alert, oriented X 3, CN II-XII intact [...] (Auto) (14 - 44 %) 3.3 L [place] % (Auto) (4 - 13 %) 3.9 L Eos % (Auto) (0 - 6 %) 0.0 Baso % (Auto) (0 - 2 %) 0.1 Neut # (Auto) (2.0 - 7.6 K/mm3) 9.37 H Lymph # (Auto) (1.0 - 3.8 K/mm3) 0.33 L [place] # (Auto) (0.1 - 0.8 K/mm3) 0.40 [...] therapy. Oxygen support as needed. at [address] [facility] #:[phone] END OF REPORT 2023-03-16 20:57:00-00:00 [facility] ([facility] Cardiology Progress Note REPORT#:[id number] REPORT STATUS: Signed DATE:03/16/23 TIME: 2056 PATIENT: JUAN C MONGE UNIT #: [id number] ROOM/BED: [address] : 58 AGE: 62 SEX: M ATTEND: Rudy Xiao ADM AUTHOR: Tyrell Mckeon MD * ALL edits or amendments must be made on the Kuailexue/computer document * Subjective Chief complaint: Dyspnea Patient [...] no edema Musculoskeletal: full range of motion Neuro/PENSION CONSULTANT: alert, oriented X 3, CN II-XII intact [...] (Auto) (14 - 44 %) 3.3 L [place] % (Auto) (4 - 13 %) 3.9 L Eos % (Auto) (0 - 6 %) 0.0 Baso % (Auto) (0 - 2 %) 0.1 Neut # (Auto) (2.0 - 7.6 K/mm3) 9.37 H Lymph # (Auto) (1.0 - 3.8 K/mm3) 0.33 L [place] # (Auto) (0.1 - 0.8 K/mm3) 0.40 [...] Oxygen support as needed. at 0637 RPT #:[id number] END OF REPORT 2023-03-16 08:07:00-00:00 [facility] ([facility]) Hospitalist Progress Note REPORT#:[id number] REPORT STATUS: Signed DATE:03/16/23 TIME: 806 PATIENT: JUAN C MONGE UNIT #: [id number] [facility] AGE: 62 SEX: M ATTEND: Rudy Xiao ADM AUTHOR: Jenny Meyers MD R2 * ALL edits or amendments must be made on the Kuailexue/computer document * Jenny Meyers 03/16/23 0807: Subjective Chief complaint: SOB, hypotension HPI: 62 yo M with PMH of COPD on 2L NC, Hypertension, Anxiety, Systolic CHF s/p AICD, Afib on xarelto, CVA and dementia presented as a transfer from [facility] for evaluation of shortness of breath. Pt [...] normal inspection, painless ran ge of motion Neuro/PENSION CONSULTANT: alert, oriented X 3, normal speech Skin: [...] cigarette smoking or nicotine patches. PLAN - Assistant Guest Services Manager on cessation - Cont. nicotine patch Code [...] or < 18.5 BMI status/follow-up: nml BMI,no counseling aide needed Attestations Attestation needed: teaching physician Rudy Xiao 03/16/232006: Attestations Teaching Physician Attestation F/U visit w/ resident: I saw the patient with the resident and . . . agree with the resident's findings and plan. echo cards folloing aicd interrogation cont angelina has home o2 at 1416 Electronically Signed by Rudy Xiao MD on 3 at 2006 RPT #:[id number] END OF REPORT 2023-03-15 20:17:00-00:00 [id number] [place] [address] PATIENT NAME: JUAN C MONGE ADMIT DATE: 03/15/23 ACCOUNT NO: [id number] ROOM NO: [facility] AGE: 62 REPORT TYPE: ELECTROCARDIOGRAM SEX: M ADMITTING PHYSICIAN:Rudy Xiao MD ATTENDING PHYSICIAN:Rudy Xiao MD Order: [id number] Test Reason : CAD Test Date/Time Stamp: [...] NAME: JUAN C MONGE 20 2023-03-15 16:03:00-00:00 [id number] [place] [address] PATIENT NAME: JUAN C MONGE ADMIT DATE: 03/15/23 ACCOUNT NO: [id number] ROOM NO: Z.347 AGE: 62 REPORT TYPE: [...] Room at [facility] in [facility] with complaints of increasing shortness of [...] Dictated: 03/15/2023 16:03:59 Date Transcribed: 03/15/2023 16:59:18 [facility] Receipt ID: [id number] Authenticated by Tyrell Mckeon MD On 03/15/20 06:28:21 PM at 0628 PATIENT NAME: JUAN C MONGE 2023-03-15 10:52:00-00:00 [facility] ([facility]) [place] Hospitalist History Physical REPORT#:[id number] REPORT STATUS: Signed DATE:03/15/23 TIME: 1052 PATIENT: JUAN C MONGE UNIT #: [id number] ROOM/BED: [facility] : 58 AGE: 62 SEX: M ATTEND: Rudy Xiao ADM AUTHOR: Clare Velazquez * ALL edits or amendments must be made on the el ectronic/computer document * Clare Velazquez 03/15/23 1052: History of Present Illness HPI Chief complaint: SOB, hypotension HPI: 62 yo M with PMH of COPD on 2L NC, Hypertension, Anxiety, Systolic CHF s/p AICD, Afib on xarelto, CVA and dementia presented as a transfer from [facility] for evaluation of shortness of breath. Pt [...] 03/16 09 AC (ASPIRIN EC) PO 04/15 901 Memantine 5 MG DAILY 03/16 09 AC [...] no muscle sp asm, no paraspinal tenderness Neuro/PENSION CONSULTANT: alert, oriented X 3, normal speech, n [...] (Auto) (1.0 - 3.8 K/mm3) 0.51 L [place] # (Auto) (0.1 - 0.8 K/mm3) 0.10 [...] is alert and oriented x3 #Tobacco abuse counseling aide on cessation. start nicotine patch VTE ppx: [...] Current BMI: 21.6 BMI status/follow-up: nml BMI,no counseling aide needed Rudy Xiao 03/15/23 2233: Attestations Teaching [...] Velazquez on 02/18 04/10 at 2343 RPT #:[id number] END OF REPORT 2023-03-15 07:02:00-00:00 [facility] ([facility]) EMERGENCY PROVIDER REPORT REPORT#:[id number] REPORT STATUS: Signed DATE:03/15/23 TIME: 701 PATIENT: JUAN C MONGE UNIT #: [id number] ROOM/BED: [address] AGE: 62 SEX: M PCP PHYS: Undefined Provider SERVICE AUTHOR: Royce Davison MD LOCATION: [facility] * ALL edits or amendments must be made on the Kuailexue/computer document * See Addendum HPI-General Illness Free Text HPI Notes Free Text HPI Notes 62-year-old female past medical history COPD, hypertension, hyperlipidemia, A- fib on Xarelto [facility]. Compla ining of shortness of breath over [...] Ox 99 03/15 0521 B/P 92/58 03/15 521 B/P Mean 69 03/15 521 Temp 36.9 03/15 521 Pulse 78 03/15 05 Resp 20 03/15 521 O2 Delivery Nasal cannula 03/15 534 O2 Flow Rate 2 03/15 534 Last Documented: Result Date Time Pulse Ox 98 03/15 645 B/P 90/53 03/15 645 B/P Mean 65 [...] (Auto) (1.0 - 3.8 K/mm3) 0.51 L Adair # (Auto) (0.1 - 0.8 K/mm3) 0.10 [...] MD on at 1240 Addendum 3: 03/15/23 191 by Royce Davison MD Patient Addendum Addendum [...] Royce Davison MD on at 1918 RPT #:[id number] END OF REPORT 2020-06-20 06:17:00-00:00 [facility] ([facility]) Cardiology Progress Note REPORT#:[id number] REPORT STATUS: Signed DATE:06/20/20 TIME: 616 PATIENT: JUAN C MONGE UNIT #: [id number] ROOM/BED: [address] : 58 AGE: 59 SEX: M ATTEND: Geoffrey Mckeon MD ADM AUTHOR: Tyrell Mckeon MD * ALL edits or amendments must be made on the Kuailexue/computer document * Subjective Chief Complaint: AICD Patient [...] low FiO2 Mean Ox Delivery Rate 06/20 0528 97.9 72 18 91/62 71.7 91 Room [...] Potassium Chloride 10 MEQ BID PO Ipratropium [place] 0.5 MG RTQ6H INH Cefazolin Sodium 1,000 [...] no edema Musculoskeletal: full range of motion Neuro/PENSION CONSULTANT: alert, oriented X 3, CN II-XII intact [...] 12.5 SECONDS) 12. 7 H Laboratory Tests 10/01 1241 Hematology WBC (3.8 - 9.8 K/MM3) [...] % (Auto) (14 - 44 %) 27.8 Adair % (Auto) (4 - 13 %) 8.6 Eos % (Auto) (0 - 6 %) 1.7 Baso % (Auto) (0 - 2 %) 0.6 Neut # (Auto) (2.0 - 7.6 K/mm3) 3.99 Lymph # (Auto) (1.0 - 3.8 K/mm3) 1.82 Adair # (Auto) (0.1 - 0.8 K/mm3) 0.56 [...] Report Impression - Status: SIGNED Entered: 06/19/2020 3334 IMPRESSION: The right lung apex is excluded from the field-o f-view. No acute cardiopulmonary abnormality is identified. Impression By: Puma7 Zo Marshall MD Diagnosis, Assessment Plan Free Text DxA P Notes Free Text DxA P Notes: IMP: Chronic systolic heart failure s/p St. Cory AICD - single lead PLAN: AICD interrogation d/c home if stable. at [address] [facility] #:[id number] END OF REPORT 2020-06-19 16:03:00-00:00 [id number] [place] [address] PATIENT NAME: JUAN C MONGE ADMIT DATE: 06/19/20 ACCOUNT NO: [id number] ROOM NO: Z.354 AGE: 59 REPORT TYPE: OPERATIVE REPORT SEX: M ADMITTING PHYSICIAN:Tyrell Mckeon MD ATTENDING PHYSICIAN:Tyrell Mckeon MD OPERATION DATE: 06/19/2020 PROCEDURES: 1. Non-thoracotomy single lead AICD placement. 2. Defibrillation threshold testing. PREOPERATIVE DIAGNOSES: 1. 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 2. [place] [employer] class III congesti ve heart failure. POSTOPERATIVE DIAGNOSES: 1. 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 2. [place] [employer] class III congesti ve heart failure. SURGEON: Tyrell Mckeon MD YARN WRAPPER: None. ANESTHESIA: Local anesthesia with 1% lidocaine [...] was flushed with antibiotic- containing solution. A 7-Cameroonian sheath was advanced over the wire and [...] applied to PATIENT NAME: JUAN C MONGE 021 wound externally. The patient tolerated the proc edure well with no complications. IMPLANT DATA: 1. Pulse generator: [employer] Cory model [id number], s erial #[id number]. 2. Right ventricular lead; [employer] Cory model 7120Q/ 58, serial number [id number]. STIMULATION THRESHOLD DATA: Right ventricle R waves [...] 2. At least 10 joule defibrillation threshold m argin. 3. No complications. Dictated By: Tyrell Mckeon MD WT: OP:KINGS/LUIS ANGEL/ALEX Conf#: [id number]/DID#: [id number] cc: Omid Tenorio MD Authenticated by Tyrell Mckeon MD On 06/23/20 06:02:06 AM at 0602 PATIENT NAME: JUAN C MONGE 21 2020-06-19 13:14:00-00:00 [id number] [place] [address] PATIENT NAME: JUAN C MONGE ADMIT DATE: 06/19/20 ACCOUNT NO: [id number] ROOM NO: Z.354 AGE: 59 REPORT TYPE: ELECTROCARDIOGRAM SEX: M ADMITTING PHYSICIAN:Tyrell Mckeon MD ATTENDING PHYSICIAN:Tyrell Mckeon MD Order: [id number] Test Reason : CHF Test Date/Time Stamp: [...] ECG No previous ECGs available Confirmed by KAREN SAWYER, TIARA ([id number]) on 06/20/2020 11:57:07 AM Referred By: Tyrell Mckeon Confirmed by:TIARA BURROUGHS MD Electronically Signed by Tiara Blue MD on 11/08 at 1157 PATIENT NAME: JUAN C MONGE 19
[2023-05-28 16:49] LABS: Absolute Lymphocytes (CBC) 1.6 K/uL (0.7-4.9); Hematocrit 39.3 % (39.6-49.0); Lymphocytes % 21.1 % (15.3-44.8); MCV 94.7 fL (80-100); MPV 7.2 fL (7.6-11.3); Platelets 283 thou/uL (152-406); RBC Red Blood Cell Count 4.15 M/uL (4.33-5.43)
[2023-05-28 16:53] LABS: Protime INR 1.24
[2023-05-28 17:07] LABS: ALT/SGPT 11 U/L (16-61); Albumin 2.9 g/dL (3.4-5.0); Alkaline Phosphatase 66 U/L (45-117); BUN Blood Urea Nitrogen 16 mg/dL (7-18); Bicarbonate 39 mEq/L (21-32); Bilirubin Direct 0.2 mg/dL (0-0.2); Bilirubin Indirect, Calculated 0.4 mg/dL (0.2-0.8); Bilirubin Total 0.6 mg/dL (0.2-1.0); Glomerular Filtration Rate 102 ml/min (=/>90); Glucose Level 96 mg/dL (74-106); Magnesium 1.8 mg/dL (1.6-2.4); NT PRO-BNP 653 pg/mL (<125); Potassium 3.5 mEq/L (3.5-5.1); Protein, Total 5.7 g/dL (6.4-8.2); Sodium Level 122 mEq/L (136-145); Troponin High Sensitivity 9.6 pg/mL (<58.9)
[2023-05-28 17:08] LABS: AST/SGOT < 4 U/L (15-37)
--- NOTE | 2023-05-28 17:18 | RAD REPORT ---
EXAM DESCRIPTION: RAD - Chest Single View - 05/28/2023 5:09 pm CLINICAL HISTORY: SOB Chest pain. COMPARISON: Chest Single View dated 05/01/2023; Chest Single View dated 04/12/2023; Chest Single View dated 04/03/2023; Chest Single View dated 04/02/2023 FINDINGS: Portable technique limits examination quality. The lungs are emphysematous but grossly clear. The heart is normal in size. No displaced fractures.Si ngle lead pacer/defibrillator device. IMPRESSION: Mild diffuse emphysema.
[2023-05-28 20:53] LABS: Potassium 3.8 mEq/L (3.5-5.1)
--- NOTE | 2023-05-28 22:43 | EDPHYS ---
Physician Documentation [facility] Name: Juan C Monge Age: 62 yrs Sex: Male : 1960 Arrival Date: 05/28/2023 Time: 16:23 Bed 5 Private MD: ED Physician Sam Lindsey HPI: 05/28 16:37 This 62 yrs old Male presents to ER via Unassigned with complaints of shortness of sb4 breath. 16:37 The patient has shortness of breath at rest, and the patient has a history of COPD. sb4 Onset: The symptoms/episode began/occurred just prior to arrival. Duration: The symptoms are continuous, and are unchanged since they started. The patient's shortness of breath is aggravated by exertion, is alleviated by application of supplemental oxygen. Associated signs and symptoms: Pertinent negatives: chest pain, non-productive cough, diaphoresis, dizziness. The patient has experienced similar episodes in the past, multiple times. The patient has not recently seen a physician. ran out of medications 2 days ago. Historical: - Allergies: 17:12 No Known Allergies; ko1 - PMHx: 17:12 Atrial Fib; COPD; CVA; Hyperlipidemia; Hypertension; Myocardial infarction; skull ko1 fracture; - Immunization history:: Adult Immunizations unknown. - Social history:: Smoking status: Patient/guardian denies using tobacco, but has a distant history of tobacco abuse. ROS: 16:59 Constitutional: Negative for fever, chills, and weight loss. sb4 16:59 Respiratory: Positive for dyspnea on exertion, shortness of breath. 16:59 All other systems are negative. Exam: 16:59 Constitutional: This is a well developed, well nourished patient who is awake, alert, sb4 and in no acute distress. Head/Face: Normocephalic, atraumatic. Eyes: Extra-ocular motions intact. Periorbital areas with no swelling, redness, or edema. ENT: Mucous membranes moist. Cardiovascular: Regular rate and rhythm with a normal S1 and S2. Abdomen/GI: Soft, non-tender, no distension. Skin: Warm, dry with normal turgor. Normal color with no rashes, no lesions, and no evidence of cellulitis. MS/ Extremity: Pulses equal, no cyanosis. Neurovascular intact. Full, normal range of motion. Neuro: Awake and alert, GCS 15, oriented to person, place, time, and situation. Cranial nerves II-XII grossly intact. Motor strength 5/5 in all extremities. Sensory grossly intact. Cerebellar exam normal. Normal gait. 16:59 Respiratory: the patient does not display signs of respiratory distress, Respirations: normal, no use of accessory muscles, no retractions, no shallow respirations, no tachypnea, Breath sounds: wheezing: expiratory is scattered. Vital Signs: 16:30 BP 146 / 81; Pulse 92; Resp 22; Temp 98.8; Pulse Ox 100% on 15 lpm Non-rebreather mask; ko1 18:20 BP 137 / 72; Pulse 70; Resp 19; Pulse Ox 100% on 3 lpm NC; hb 20:30 BP 139 / 72; Pulse 85; Resp 18 S; Pulse Ox 98% on 3 lpm NC; lg3 21:08 BP 131 / 68; Pulse 74; Resp 15; Pulse Ox 96% on 3 lpm NC; kd3 23:38 BP 121 / 69; Pulse 71; Resp 16 S; Pulse Ox 97% on 3 lpm NC; lg3 MDM: 16:30 Patient medically screened. sb4 16:59 Differential diagnosis: asthma, Bronchitis Chronic Obstructive Pulmonary Disease sb4 pneumonia, Pulmonary Embolism reactive airway disease. 23:49 Antibiotic administration: Not indicated, the patient does not have an appreciated sb4 infiltrate. Data interpreted: Pulse oximetry: on 3L(s) per nasal canula, is 97 %. Interpretation: baseline requirement. Data reviewed: vital signs, nurses notes, EMS record, lab test result(s), EKG, radiologic studies, and as a result, I will admit patient. Consideration of Admission/Observation Patient was admitted/placed on observation. Management of patient was discussed with the following: Hospitalist: Noris LOPEZ. Care significantly affected by the following chronic conditions: Hypertension. Counseling: I had a detailed discussion with the patient and/or guardian regarding the historical points, exam findings, and any diagnostic results supporting the discharge/admit diagnosis, lab results, radiology results, the need for further work-up and treatment in the hospital. 05/28 16:32 Order name: BMP; Complete Time: 17:10 sb4 05/28 16:32 Order name: CBC with Diff; Complete Time: 16:51 sb4 05/28 16:32 Order name: Hepatic Function; Complete Time: 17:10 sb4 05/28 16:32 Order name: Magnesium; Complete Time: 17:10 sb4 05/28 16:32 Order name: NT PRO-BNP; Complete Time: 17:10 sb4 05/28 16:32 Order name: PT-INR; Complete Time: 16:55 sb4 05/28 16:32 Order name: Ptt, Activated; Complete Time: 16:55 sb4 05/28 16:32 Order name: Troponin HS; Complete Time: 17:10 sb4 05/28 17:12 Order name: Urine Osmolality sb4 05/28 17:12 Order name: Urine Sodium Random sb4 05/28 17:12 Order name: Osmolality, Serum; Complete Time: 21:04 sb4 05/28 17:12 Order name: UAM sb4 05/28 20:26 Order name: BMP; Complete Time: 20:53 sb4 05/28 16:32 Order name: XRAY CXR (1 view); Complete Time: 17:19 sb4 05/28 16:32 Order name: EKG; Complete Time: 16:33 sb4 05/28 22:58 Order name: CONS Physician Consult EDMT 05/28 16:32 Order name: Cardiac monitoring; Complete Time: 16:33 sb4 05/28 16:32 Order name: EKG - Nurse/Tech; Complete Time: 16:57 sb4 05/28 16:32 Order name: IV Saline Lock; Complete Time: 16:33 sb4 05/28 16:32 Order name: Labs collected and sent; Complete Time: 16:41 sb4 05/28 16:32 Order name: O2 Per Protocol; Complete Time: 16:33 sb4 05/28 16:32 Order name: O2 Sat Monitoring; Complete Time: 16:33 sb4 EC:56 Rate is 78 beats/min. Rhythm is regular, Normal Sinus Rhythm. IN interval is normal at sb4 136 msec. QRS interval is normal at 92 msec. QT interval is normal at 392 msec. No Q waves. T waves are Normal. No ST changes noted. Clinical impression: Normal ECG. Interpreted by me. Reviewed by me. Administered Medications: 16:34 CANCELLED (Physician Discretion): DuoNeb Nebulize (3:1) (2.5 mg - 0.5 mg) 3 ml sb4 Nebulizer once 16:35 CANCELLED (Physician Discretion): MethylPrednisoLONE IVP 125 mg IVP once sb4 20:25 CANCELLED (Physician Discretion): NS 0.9% IV 1000 ml IV at 1 bolus Per protocol; 1000 sb4 mL bolus Disposition Summary: 05/28/23 22:42 Hospitalization Ordered Hospitalization Status: Inpatient Admission sb4 Provider: Dedrick Parish4 [facility] sb4 Condition: Fair sb4 Problem: new sb4 Symptoms: are unchanged sb4 Bed/Room Type: Standard sb4 Room Assignment: 216(05/28/23 23:23) mw Diagnosis - Hypo-osmolality and hyponatremia sb4 Forms: - Medication Reconciliation Form sb4 - SBAR form sb4 - Leadership Thank You Letter sb4 Signatures: Dispatcher [employer] EDArgelia Rice RN RN mw Ashley Henry RN RN koHiwot Fleming PA-C PA-C sb4 Corrections: (The following items were deleted from the chart) 16:34 16:32 DuoNeb Nebulize (3:1) (2.5 mg - 0.5 mg) 3 ml Nebulizer once ordered. sb4 sb4 16:35 16:32 MethylPrednisoLONE IVP 125 mg IVP once ordered. sb4 sb4 17:12 17:12 PSHx: defibrillator; ko1 ko1 17:12 17:12 PSHx: Appendectomy; ko1 ko1 20:25 19:53 NS 0.9% IV 1000 ml IV at 1 bolus Per protocol; 1000 mL bolus ordered. sb4 sb4 23:23 22:42 sb4 mw
--- NOTE | 2023-05-28 22:43 | ER ---
Nurse's Notes [facility] Name: Juan C Monge Age: 62 yrs Sex: Male : 1960 Arrival Date: 05/28/2023 Time: 16:23 Bed 5 Private MD: Diagnosis: Hypo-osmolality and hyponatremia Presentation: 05/28 16:30 Chief complaint: EMS states: called for shortness of breath. Patient has a history of ko1 COPD and wears oxygen at home. Coronavirus screen: At this time, the client does not indicate any symptoms associated with coronavirus-19. Ebola Screen: No symptoms or risks identified at this time. Initial Sepsis Screen: Does the patient meet any 2 criteria? No. Patient's initial sepsis screen is negative. Does the patient have a suspected source of infection? No. Patient's initial sepsis screen is negative. Risk Assessment: Do you want to hurt yourself or someone else? Patient reports no desire to harm self or others. Onset of symptoms was May 28, 2023. Care prior to arrival: Medication(s) given: Albuterol Neb x 1, Atrovent Neb x 1, solumedrol 125 mg iv IV initiated. 18 GA, in the left antecubital area, Med neb given. Oxygen administered. via a non-rebreather mask. 16:30 Method Of Arrival: EMS: [facility] ko1 16:30 Acuity: JESSI 2 ko1 Triage Assessment: 16:30 General: Appears in no apparent distress. comfortable, Behavior is calm, cooperative, ko1 appropriate for age. Pain: Denies pain. Historical: - Allergies: 17:12 No Known Allergies; ko1 - PMHx: 17:12 Atrial Fib; COPD; CVA; Hyperlipidemia; Hypertension; Myocardial infarction; skull ko1 fracture; - Immunization history:: Adult Immunizations unknown. - Social history:: Smoking status: Patient/guardian denies using tobacco, but has a distant history of tobacco abuse. Screenin:20 [facility] ED Fall Risk Assessment (Adult) Score/Fall Risk Level 0 - 2 = Low Risk hb Oriented to surroundings, Maintained a safe environment, Educated pt \T\ family on fall prevention, incl call for assistance when getting out of bed. Abuse screen: Denies threats or abuse. Denies injuries from another. Nutritional screening: No deficits noted. Tuberculosis screening: No symptoms or risk factors identified. Assessment: 18:20 Reassessment: Patient appears in no apparent distress at this time. Patient and/or hb family updated on plan of care and expected duration. Pain level reassessed. Patient is alert, oriented x 3, equal unlabored respirations, skin warm/dry/pink. 20:30 General: Appears in no apparent distress. comfortable, Behavior is calm, cooperative. lg3 Pain: Denies pain. Neuro: No deficits noted. [place]osta Agitation-Sedation Scale (RASS): 0 - Alert and Calm Level of Consciousness is awake, alert, obeys commands, Oriented to person, place, time, situation. Cardiovascular: No deficits noted. Denies chest pain, Capillary refill < 3 seconds Clubbing of nail beds is absent JVD is absent Patient's skin is warm and dry. Respiratory: Airway is patent Respiratory effort is even, unlabored, Respiratory pattern is regular, symmetrical. GI: No deficits noted. No signs and/or symptoms were reported involving the gastrointestinal system. : No deficits noted. No signs and/or symptoms were reported regarding the genitourinary system. EENT: No deficits noted. No signs and/or symptoms were reported regarding the EENT system. Derm: No deficits noted. No signs and/or symptoms reported regarding the dermatologic system. Skin is intact, is healthy with good turgor, Skin is dry, Skin is normal, Skin temperature is warm. Musculoskeletal: No deficits noted. No signs and/or symptoms reported regarding the musculoskeletal system. Circulation, motion, and sensation intact. Range of motion: intact in all extremities. Vital Signs: 16:30 BP 146 / 81; Pulse 92; Resp 22; Temp 98.8; Pulse Ox 100% on 15 lpm Non-rebreather mask; ko1 18:20 BP 137 / 72; Pulse 70; Resp 19; Pulse Ox 100% on 3 lpm NC; hb 20:30 BP 139 / 72; Pulse 85; Resp 18 S; Pulse Ox 98% on 3 lpm NC; lg3 21:08 BP 131 / 68; Pulse 74; Resp 15; Pulse Ox 96% on 3 lpm NC; kd3 23:38 BP 121 / 69; Pulse 71; Resp 16 S; Pulse Ox 97% on 3 lpm NC; lg3 ED Course: 16:28 Patient arrived in ED. ko1 16:30 Hiwot Yates [facility]C [facility] sb4 16:30 Sam Lindsey MD is Attending Physician. sb4 16:30 Arm band placed on right wrist. Patient placed in an exam room, on a stretcher, on ko1 oxygen, on hospital monitor, on pulse oximetry, Patient notified of wait time. 16:32 Ashley Henry, RN is Primary Nurse. ko1 16:41 BMP Sent. ko1 16:41 CBC with Diff Sent. ko1 16:41 Hepatic Function Sent. ko1 16:41 Magnesium Sent. ko1 16:41 NT PRO-BNP Sent. ko1 16:41 PT-INR Sent. ko1 16:41 Ptt, Activated Sent. ko1 16:41 Troponin HS Sent. ko1 17:11 XRAY CXR (1 view) In Process Unspecified. EDMS 17:12 Triage completed. ko1 18:00 Patient has correct armband on for positive identification. Provided Education on: . hb 20:32 BMP Sent. lg3 22:12 Bladder scan completed. 235 ml. lg3 22:42 Dedrick Parish MD is Hospitalizing Provider. sb4 23:48 No provider procedures requiring assistance completed. Patient admitted, IV remains in lg3 place. intact, No redness/swelling at site. Administered Medications: 16:34 CANCELLED (Physician Discretion): DuoNeb Nebulize (3:1) (2.5 mg - 0.5 mg) 3 ml sb4 Nebulizer once 16:35 CANCELLED (Physician Discretion): MethylPrednisoLONE IVP 125 mg IVP once sb4 20:25 CANCELLED (Physician Discretion): NS 0.9% IV 1000 ml IV at 1 bolus Per protocol; 1000 sb4 mL bolus Medication: 18:20 VIS not applicable for this client. hb Outcome: 22:42 Decision to Hospitalize by Provider. sb4 23:48 Admitted to Med/surg accompanied by tech, via stretcher, room 216, Report called to [facility] Gemma 23:48 Condition: stable 23:48 Instructed on the need for admit. 05/29 01:04 Patient left the ED. as6 Signatures: Dispatcher [employer] EDDC Angely Smith RN RN hb Laura Cullen RN RN lg3 Ashvin Forbes RN RN as6 Genet Mcdowell RN RN kd3 Ashley Henry RN RN ko1 Hiwot Yates, MARK PAMimi sb4 Corrections: (The following items were deleted from the chart) 05/28 17:12 17:12 PSHx: defibrillator; ko1 ko1 17:12 PSHx: Appendectomy; ko1 ko1
--- NOTE | 2023-05-28 22:50 | P.HP ---
Certification for Inpatient Patient admitted to: Observation With expected LOS: <2 Midnights Patient will require the following post-hospital care: None Practitioner: I am a practitioner with admitting privileges, knowledge of patient current condition, hospital course, and medical plan of care. Services: Services provided to patient in accordance with Admission requirements found in Title 42 Section 412.3 of the Code of Federal Regulations Patient History Date of Service: 05/29/23 Reason for admission: COPD exacerbation, hyponatremia History of Present Illness: 62-year-old male with a past medical history of COPD, CVA, atrial fibrillation, hypertension, hyperlipidemia, [place], skull fracture, presents to the emergency room with shortness of breath breath. Reports symptoms started today, shortness of breath made worse with exertion, he denies fever, chills, cough, edema, dizziness. He reports running out of medications 2 days ago. Plan to admit for hyponatremia. COPD exacerbation. Patient was treated with 1 L normal saline, DuoNeb, methylprednisone. EKG Rate is 78 beats/min. Rhythm is regular, Normal Sinus Rhythm. AK interval is normal at sb4 136 msec. QRS interval is normal at 92 msec. QT interval is normal at 392 msec. No Q waves. T waves are Normal. No ST changes noted. Clinical impression: Normal ECG. Laboratory evaluation sodium 122, carbon dioxide elevated at 39, potassium normal at 3.5 elevated BNP 637, hypoalbumin at 2.9, normocytic anemia hemoglobin 13.2, hematocrit 39.3, UA pending chest x-ray IMPRESSION: Mild diffuse emphysema Allergies No Known Allergies Allergy (Verified 04/12/23 21:50) Home Medications: Aspirin [Aspirin EC 81 MG] 81 mg PO DAILY #30 tablet. 03/14/18 Benazepril HCl [Lotensin*] 10 mg PO DAILY #30 tab 03/14/18 Albuterol Neb [Proventil 0.083% Neb Soln] 1 inh Q4H PRN 03/20/23 Atorvastatin Calcium [Lipitor] 40 mg PO BEDTIME 03/20/23 Carvedilol [Coreg] 1 tab PO BID 03/20/23 Ipratropium [place] 500 mcg IV Q6H 03/20/23 Memantine HCl [Namenda] 1 tab PO DAILY 03/20/23 Omeprazole [Prilosec] 1 tab PO DAILY 07/02/23 Potassium Chloride [Micro-K] 1 tab PO DAILY 03/20/23 Rivaroxaban [Xarelto*] 1 tab PO DAILY 03/20/23 Fluticasone/Umeclidin/Vilanter [Trelegy Ellipta 200-62.5-25] 1 each IH DAILY 30 Days #30 aero 03/21/23 Furosemide [Lasix*] 40 mg PO DAILY #30 tab 03/24/23 Budesonide/Glycopyr/Formoterol [Breztri Aerosphere Inhaler] 1 puff IH DAILY 04/14/23 Donepezil HCl 5 mg PO DAILY 04/14/23 Albuterol Neb [Proventil 0.083% Neb Soln] 2.5 mg NEB [id number] #60 amp 04/16/23 Hydrocodone 7.5/APAP 325 [[place] 7.5/325 mg] 1 tab PO Q6H PRN #30 tab 04/16/23 Ipratropium Neb [Atrovent*] 0.5 mg NEB [id number] #60 amp 04/16/23 Nebulizer 1 each MC DAILY #1 ea 04/16/23 Nebulizer Accessories [Aeroneb Go] 1 each MC DAILY #1 ea 04/16/23 levoFLOXacin [Levaquin] 500 mg PO DAILY #10 tab 04/16/23 predniSONE [Prednisone*] 20 mg PO BID 13 Days #16 tab 04/16/23 - Past Medical/Surgical History Diabetic: No -: COPD -: paroxysmal A.Fib -: HTN -: Tobacco abuse -: CVA -: skull fx -: defibrilator -: Home O2 -: Appendectomy - Family History Father -: Diabetes Mother -: Diabetes - Social History Alcohol use: No CD- Drugs: No Caffeine use: Yes Review of Systems 10-point ROS is otherwise unremarkable Physical Examination - Physical Exam General: Alert, Oriented x3, Mild distress HEENT: Atraumatic, Normocephalic Neck: Supple, 2+ carotid pulse no bruit, JVD not distended Respiratory: Diminished, Other (Rhonchi) Cardiovascular: No edema, Normal pulses, Regular rate/rhythm Capillary refill: <2 Seconds Gastrointestinal: Normal bowel sounds, Soft and benign Musculoskeletal: No clubbing, No swelling Neurological: Normal speech (Dyspneic with conversation) Urinary: Other (continent of bowel and bladder) - Studies Laboratory Data (last 24 hrs) 05/28/23 05/28/23 05/28/23 20:30 16:38 16:38 WBC 7.60 Hgb 13.2 L Hct 39.3 L Plt Count 283 PT 13.6 H INR 1.24 APTT 35.5 Sodium 123 L Potassium 3.8 BUN 14 Creatinine 0.51 L Glucose 106 Magnesium Total Bilirubin AST ALT Alkaline Phosphatase 05/28/23 16:38 WBC Hgb Hct Plt Count PT INR APTT Sodium 122 L Potassium 3.5 BUN 16 Creatinine 0.71 Glucose 96 Magnesium 1.8 Total Bilirubin 0.6 AST < 4 L ALT 11 L Alkaline Phosphatase 66 Assessment and Plan - Plan Assessment plan acute hypoxic hypercarbic respiratory failure COPD exacerbation Hyponatremia chronic diastolic heart failure History of CVA Tobacco use Essential hypertension DVT prophylaxis Assessment plan acute hypoxic hypercarbic respiratory failure secondary to COPD exacerbation BiPAP at bedtime nebulizers, steroids, budesonide, IV azithromycin Patient will need inhalers, nebulizer prescription prior to discharge to prevent readmission carbon dioxide elevated at 39, chest x-ray IMPRESSION: Mild diffuse emphysema chronic diastolic heart failure Trend BNP, telemetry Resume home diuretics Elevated BNP 637 Hyponatremia Gentle IV fluids Trend BMP sodium 122, History of CVA Resume home medications, fall precautions Essential hypertension Resume home medications Tobacco use Educated on tobacco cessation DVT prophylaxis Cardiac diet full code Discharge Plan: Home Plan to discharge in: 24 Hours - Advance Directives Does patient have a Living Will: No Does patient have a Durable POA for Healthcare: No - Code Status/Comfort Care Code Status: Full Code Physician Review: Patient Assessed, Agree with Above Assessment and Plan Critical Care: No Time Spent Managing Pts Care (In Minutes): 50
[2023-05-29 03:31] VITALS: BMI 24.3
[2023-05-29] MEDS ORDERED: IPRATROPIUM BROM 0.5MG/2.5ML NEB PRN (04:14)
[2023-05-29] MEDS ORDERED: ONDANSETRON 4 MG/2 ML VIAL IV PRN (04:14)
[2023-05-29] MEDS ORDERED: ALBUTEROL 2.5 MG/3 ML NEB SOL NEB PRN (04:14)
[2023-05-29] MEDS ORDERED: HYDROCODONE/APAP 7.5/325 MG TAB PO PRN (04:14)
[2023-05-29] MEDS ORDERED: ACETAMINOPHEN 500 MG TAB PO PRN (04:14)
[2023-05-29 04:45] LABS: Hematocrit 39.8 % (39.6-49.0); Lymphocytes % 6.9 % (15.3-44.8); MCV 94.7 fL (80-100); Platelets 262 thou/uL (152-406); RBC Red Blood Cell Count 4.21 M/uL (4.33-5.43)
[2023-05-29 04:46] LABS: Absolute Lymphocytes (CBC) 0.2 K/uL (0.7-4.9)
[2023-05-29] MEDS: BUDESONIDE 0.5 MG/2 ML NEB NEB SCH ×3 (04:50→22:00)
[2023-05-29 05:08] LABS: Magnesium 1.8 mg/dL (1.6-2.4); Potassium 4.1 mEq/L (3.5-5.1)
[2023-05-29] MEDS: AZITHROMYCIN IV 500 MG in NA CHLORIDE 0.9% 250 ML IVPB SCH ×2 (05:13→08:55)
[2023-05-29] MEDS: NA CHLORIDE 0.9% 1,000 ML IV SCH ×2 (05:13→18:16)
[2023-05-29 07:44] LABS: Blood Morphology Comment NOT SEEN (NOT SEEN); Platelet Estimate ADEQ; White Blood Cell Scan OK (OK)
[2023-05-29] MEDS: dexAMETHasone 10 MG/ML VIAL IV SCH (08:54)
--- NOTE | 2023-05-29 08:55 | P.CNS ---
Date of Consult: 05/29/23 Reason for Consult: Hyponatremia Requesting Physician: swapnil blankenship Chief Complaint: COPD exacerbation, hyponatremia History of Present Illness: 62-year-old male with a past medical history of COPD, CVA, atrial fibrillation, hypertension, hyperlipidemia, [place], skull fracture, presents to the emergency room with shortness of breath breath. Reports symptoms started today, shortness of breath made worse with exertion, he denies fever, chills, cough, edema, dizziness. He reports running out of medications 2 days ago. Plan to admit for hyponatremia. COPD exacerbation. Patient was treated with 1 L normal saline, DuoNeb, methylprednisone. EKG Rate is 78 beats/min. Rhythm is regular, Normal Sinus Rhythm. [place] interval is normal at sb4 136 msec. QRS interval is normal at 92 msec. QT interval is normal at 392 msec. No Q waves. T waves are Normal. No ST changes noted. Clinical impression: Normal ECG. Laboratory evaluation sodium 122, carbon dioxide elevated at 39, potassium normal at 3.5 elevated BNP 637, hypoalbumin at 2.9, normocytic anemia hemoglobin 13.2, hematocrit 39.3, UA pending chest x-ray IMPRESSION: Mild diffuse emphysema. 05/28 16:37 This 62 yrs old Male presents to ER via Unassigned with complaints of shortness of sb4 breath. 16:37 The patient has shortness of breath at rest, and the patient has a history of COPD. sb4 Onset: The symptoms/episode began/occurred just prior to arrival. Duration: The symptoms are continuous, and are unchanged since they started. The patient's shortness of breath is aggravated by exertion, is alleviated by application of supplemental oxygen. Associated signs and symptoms: Pertinent negatives: chest pain, non- productive cough, diaphoresis, dizziness. The patient has experienced similar episodes in the past, multiple times. The patient has not recently seen a physician. ran out of medications 2 days ago. He reports 1 week of poor intake and malaise. Allergies No Known Allergies Allergy (Verified 04/12/23 21:50) Home medications list reviewed: Yes Home Medications: Benazepril HCl [Lotensin*] 10 mg PO DAILY #30 tab 03/14/18 Albuterol Neb [Proventil 0.083% Neb Soln] 1 inh Q4H PRN 03/20/23 Atorvastatin Calcium [Lipitor] 40 mg PO BEDTIME 03/20/23 Rivaroxaban [Xarelto*] 1 tab PO DAILY 03/20/23 Albuterol Neb [Proventil 0.083% Neb Soln] 2.5 mg NEB [id number] #60 amp 04/16/23 Ipratropium Neb [Atrovent*] 0.5 mg NEB [id number] #60 amp 04/16/23 Carvedilol [Coreg] 25 mg PO BID 05/29/23 Fluticasone [Flonase 50MCG Nasal [place]*] 1 spr CORNELIUS DAILY 05/29/23 - Past Medical/Surgical History Diabetic: No -: COPD -: Paroxysmal Afib -: HTN -: Tobacco abuse -: CVA -: skull fx -: defibrilator -: Home O2 -: Hx Hyponatremia (Dr. Hargrove/ Dr. Menjivar) -: Appendectomy - Family History Father Medical History: Diabetes Mother Medical History: Diabetes - Social History Smoking Status: Former smoker Alcohol use: No CD- Drugs: No Caffeine use: Yes Review of Systems 10-point ROS is otherwise unremarkable General: Weakness, Malaise Respiratory: Wheezing Physical Examination Temp Pulse Resp BP Pulse Ox 97.2 F 85 18 115/62 97 05/29/23 08:00 05/29/23 08:00 05/29/23 08:00 05/29/23 08:00 05/29/23 08:00 General: In no apparent distress, Cooperative HEENT: Atraumatic Neck: Supple Respiratory: Expiratory wheezes Cardiovascular: No edema, Regular rate/rhythm Gastrointestinal: Soft and benign, Non-distended Musculoskeletal: No clubbing, No contractures Integumentary: No rashes, No cyanosis Neurological: Normal speech Laboratory Data (last 24 hrs) 05/28/23 05/28/23 05/28/23 20:30 16:38 16:38 WBC 7.60 Hgb 13.2 L Hct 39.3 L Plt Count 283 PT 13.6 H INR 1.24 APTT 35.5 Sodium 123 L Potassium 3.8 BUN 14 Creatinine 0.51 L Glucose 106 Magnesium Total Bilirubin AST ALT Alkaline Phosphatase 05/28/23 16:38 WBC Hgb Hct Plt Count PT INR APTT Sodium 122 L Potassium 3.5 BUN 16 Creatinine 0.71 Glucose 96 Magnesium 1.8 Total Bilirubin 0.6 AST < 4 L ALT 11 L Alkaline Phosphatase 66 Imagings Data: EXAM DESCRIPTION: RAD - Chest Single View - 05/28/2023 5:09 pm CLINICAL HISTORY: SOB Chest pain. COMPARISON: Chest Single View dated 05/01/2023; Chest Single View dated 04/12/2023; Chest Single View dated 04/03/2023; Chest Single View dated 04/02/2023 FINDINGS: Portable technique limits examination quality. The lungs are emphysematous but grossly clear. The heart is normal in size. No displaced fractures.Single lead pacer/defibrillator device. IMPRESSION: Mild diffuse emphysema. Conclusions/Impression: Hyponatremia may be multifactorial including poor oral intake Chronic Hyponatremia -Continue IVF with NS -Repleat BMP today Hypokalemia -Replete as ordered Metabolic Alkalosis in the setting of COPD -Replete potassium HTN -Continue Benazepril Hypoalbuminemia -Recommend protein supplementation Hospitalist and ER notes reviewed Thank you kindly for the consultation
[2023-05-29] MEDS: BENAZEPRIL 10 MG TAB PO SCH (08:56)
[2023-05-29] MEDS: POTASSIUM CL SA 10 MEQ TAB PO SCH (08:56)
[2023-05-29] MEDS: carvediloL 3.125 MG TAB PO SCH ×2 (08:57→16:57)
[2023-05-29] MEDS ORDERED: FUROSEMIDE 40 MG TABLET PO SCH (09:00)
[2023-05-29 10:14] LABS: Urine Bacteria None Seen /HPF (<20); Urine Bilirubin NEGATIVE (Negative); Urine Blood Negative (Negative); Urine Clarity Clear (Clear); Urine Color Yellow (Yellow); Urine Glucose TRACE (Negative); Urine Mucus Slight /HPF (None Seen); Urine Protein NEGATIVE (Negative); Urine RBC <5 /HPF (None Seen); Urine Urobilinogen Normal (Normal)
--- NOTE | 2023-05-29 14:16 | P.PN ---
Subjective Date of Service: 05/29/23 Chief Complaint: COPD exacerbation, hyponatremia Patient states he feels better compared to yesterday. He is maintained on 3 L oxygen by nasal cannula. Physical Examination - Vital Signs Temperature: 97.8 F Blood Pressure: 120/62 Pulse: 91 Respirations: 18 Pulse Ox (%): 97 - Studies Laboratory Data (last 24 hrs) 05/28/23 05/28/23 05/28/23 20:30 16:38 16:38 WBC 7.60 Hgb 13.2 L Hct 39.3 L Plt Count 283 PT 13.6 H INR 1.24 APTT 35.5 Sodium 123 L Potassium 3.8 BUN 14 Creatinine 0.51 L Glucose 106 Magnesium Total Bilirubin AST ALT Alkaline Phosphatase 05/28/23 16:38 WBC Hgb Hct Plt Count PT INR APTT Sodium 122 L Potassium 3.5 BUN 16 Creatinine 0.71 Glucose 96 Magnesium 1.8 Total Bilirubin 0.6 AST < 4 L ALT 11 L Alkaline Phosphatase 66 Assessment And Plan - Plan Physical Exam General: Alert, Oriented x3, NAD. Neck: Supple, 2+ carotid pulse no bruit, JVD not distended Respiratory: Diminished, bilateral rhonchi Cardiovascular: No edema, Normal pulses, Regular rate/rhythm Gastrointestinal: Normal bowel sounds, Soft and benign Musculoskeletal: No clubbing, No swelling Neurological: Normal speech, no focal motor deficit. Diagnosis Acute hypoxic hypercarbic respiratory failure COPD exacerbation Hyponatremia Chronic diastolic heart failure History of CVA Tobacco use Essential hypertension Assessment plan acute hypoxic hypercarbic respiratory failure secondary to COPD exacerbation nebulizers, steroids, budesonide, IV azithromycin carbon dioxide elevated at 39, Chronic diastolic heart failure Hold Lasix for now due to hyponatremia Monitor. 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 Monitor BMP. Nephrology consulted to assist with management. History of CVA Continue home medications Essential hypertension Continue home medications Tobacco use Smoking cessation advised.
[2023-05-29 15:19] LABS: Potassium 3.9 mEq/L (3.5-5.1)
[2023-05-29] MEDS ORDERED: HALOPERIDOL LACT 5 MG/ML INJ IM ONE (19:41)
[2023-05-29] MEDS ORDERED: DRISDOL (VITAMIN D=ERGOCALCIFEROL) 50000 UNIT CAP PO SCH (20:00)
[2023-05-29] MEDS ORDERED: WATER FOR INJ,STERILE 10 ML IM PRN (20:42)
[2023-05-29] MEDS ORDERED: ZIPRASIDONE MESYLA 20 MG/VIAL IM PRN (20:42)
[2023-05-29 20:43] LABS: Potassium 3.9 mEq/L (3.5-5.1)
[2023-05-29] MEDS: DOCUSATE NA 100 MG CAP PO SCH (21:00)
[2023-05-30 03:00] LABS: BUN Blood Urea Nitrogen 17 mg/dL (7-18); Glomerular Filtration Rate 111 ml/min (=/>90); Glucose Level 134 mg/dL (74-106); Potassium 3.7 mEq/L (3.5-5.1); Sodium Level 131 mEq/L (136-145)
[2023-05-30 03:02] LABS: Bicarbonate > 45 mEq/L (21-32)
[2023-05-30 03:03] LABS: Thyroid Stimulating Hormone 0.38 uIU/mL (0.358-3.740); Uric Acid 5.2 mg/dL (3.5-7.2)
[2023-05-30] MEDS: BUDESONIDE 0.5 MG/2 ML NEB NEB SCH ×2 (07:30→20:00)
[2023-05-30] MEDS: AZITHROMYCIN IV 500 MG in NA CHLORIDE 0.9% 250 ML IVPB SCH (08:40)
[2023-05-30] MEDS: dexAMETHasone 10 MG/ML VIAL IV SCH (08:40)
[2023-05-30] MEDS ORDERED: DRISDOL (VITAMIN D=ERGOCALCIFEROL) 50000 UNIT CAP PO SCH (09:00)
[2023-05-30] MEDS: carvediloL 3.125 MG TAB PO SCH ×2 (09:11→16:15)
[2023-05-30] MEDS: POTASSIUM CL SA 10 MEQ TAB PO SCH (09:12)
[2023-05-30] MEDS: DOCUSATE NA 100 MG CAP PO SCH ×2 (09:12→19:52)
[2023-05-30] MEDS: AZITHROMYCIN 250 MG TAB PO SCH (09:16)
[2023-05-30] MEDS: BENAZEPRIL 10 MG TAB PO SCH (09:18)
[2023-05-30 09:51] LABS: BUN Blood Urea Nitrogen 18 mg/dL (7-18); Glomerular Filtration Rate 109 ml/min (=/>90); Glucose Level 108 mg/dL (74-106); Potassium 3.9 mEq/L (3.5-5.1); Sodium Level 130 mEq/L (136-145)
[2023-05-30 09:52] LABS: Bicarbonate > 45 mEq/L (21-32)
--- NOTE | 2023-05-30 13:31 | P.PN ---
Subjective Date of Service: 05/30/23 Chief Complaint: COPD exacerbation, hyponatremia Patient is not answering yes to every question. Nursing staff report he refused blood work this morning. He appears confused. Physical Examination - Vital Signs Temperature: 98.8 F Blood Pressure: 144/76 Pulse: 100 Respirations: 16 Pulse Ox (%): 100 Assessment And Plan - Plan Physical Exam General: Alert, confused, NAD. Neck: JVD not distended Respiratory: Diminished breath sounds, bilateral rhonchi Cardiovascular: No edema, Normal pulses, Regular rate/rhythm Gastrointestinal: Normal bowel sounds, Soft and benign Musculoskeletal: No swelling Neurological: Normal speech, confused, no focal motor deficit. Diagnosis Acute hypoxic hypercarbic respiratory failure COPD exacerbation Hyponatremia Chronic diastolic heart failure History of CVA Tobacco use Essential hypertension Assessment plan acute hypoxic hypercarbic respiratory failure secondary to COPD exacerbation CO2 retention is worse causing more confusion. nebulizers, steroids, budesonide, IV azithromycin Apply BiPAP. Respiratory therapy informed. Chronic diastolic heart failure Sodium level improved Hold Lasix for now due to hyponatremia Monitor. 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 IV fluid discontinued. Monitor BMP. Nephrology consulted to assist with management. History of CVA Continue home medications Essential hypertension Continue home medications Tobacco use Smoking cessation advised. Patient wanted to sign out AMA yesterday but later agreed to stay for treatment according to nursing staff.
[2023-05-30 14:40] LABS: BUN Blood Urea Nitrogen 18 mg/dL (7-18); Bicarbonate > 45 mEq/L (21-32); Glomerular Filtration Rate 108 ml/min (=/>90); Glucose Level 106 mg/dL (74-106); Potassium 3.7 mEq/L (3.5-5.1); Sodium Level 132 mEq/L (136-145)
--- NOTE | 2023-05-30 17:11 | EKG ---
Test Date: 2023-05-28 Test Time: 16:54:18 Mechanical Designer: MOUNA MEASUREMENT RESULTS: Intervals: Rate: 75 NV: 136 QRSD: 98 QT: 396 QTc: 442 [place]: P: 88 NV: 136 QRS: 84 T: 92 INTERPRETIVE STATEMENTS: Normal sinus rhythm Normal ECG Electronically Signed On 05-30-23 17:06:36 CDT by Ric Pandya
--- NOTE | 2023-05-30 17:11 | EKG ---
Test Date: 2023-05-28 Test Time: 16:55:05 Field Artillery Crewmember: MOUNA MEASUREMENT RESULTS: Intervals: Rate: 78 OR: 136 QRSD: 92 QT: 392 QTc: 446 [place]: P: 88 OR: 136 QRS: 83 T: 94 INTERPRETIVE STATEMENTS: Normal sinus rhythm Normal ECG Compared to ECG 05/28/2023 16:54:18 No significant changes Electronically Signed On 05-30-23 17:06:34 CDT by Ric Pandya
[2023-05-30] MEDS: ALBUTEROL 2.5 MG/3 ML NEB SOL NEB PRN (20:25)
[2023-05-30 20:56] LABS: BUN Blood Urea Nitrogen 22 mg/dL (7-18); Glomerular Filtration Rate 103 ml/min (=/>90); Glucose Level 113 mg/dL (74-106); Potassium 4.1 mEq/L (3.5-5.1); Sodium Level 132 mEq/L (136-145)
[2023-05-30 20:58] LABS: Bicarbonate > 45 mEq/L (21-32)
[2023-05-30] MEDS: predniSONE 20 MG TAB PO SCH (20:58)
[2023-05-30] MEDS: MELATONIN 5 MG TABLET PO PRN (20:58)
--- NOTE | 2023-05-30 21:52 | P.PN ---
Date of Service: 05/30/23 Vital Signs Temp Pulse Resp BP Pulse Ox 98.6 F 103 H 18 132/77 100 05/30/23 16:00 05/30/23 16:00 05/30/23 16:00 05/30/23 16:00 05/30/23 16:00 Medications Acetaminophen (Acetaminophen 500 Mg Tab) 500 mg PO Q4HP PRN PRN Reason: Pain scale 2-4 (Mild) Hydrocodone Bitart/Acetaminophen (Hydrocodone/Apap 7.5/325 Mg Tab) 1 tab PO Q6H PRN PRN Reason: Pain scale 5-7 (Moderate) Albuterol Sulfate (Albuterol 2.5 Mg/3 Ml Neb Ingrid) 2.5 mg NEB [id number] PRN PRN Reason: SHORTNESS OF BREATH Last Admin: 05/30/23 20:25 Dose: 2.5 mg Azithromycin (Azithromycin 250 Mg Tab) 500 mg PO DAILY [facility] Stop: 06/01/23 09:01 Last Admin: 05/30/23 09:16 Dose: 500 mg Benazepril HCl (Benazepril 10 Mg Tab) 10 mg PO DAILY [facility] Last Admin: 05/30/23 09:18 Dose: 10 mg Budesonide (Budesonide 0.5 Mg/2 Ml Neb) 0.5 mg NEB BIDRESP [facility] Last Admin: 05/30/23 20:00 Dose: Not Given Carvedilol (Carvedilol 3.125 Mg Tab) 3.125 mg PO BIDWM [facility] Last Admin: 05/30/23 16:15 Dose: 3.125 mg Docusate Sodium (Docusate Na 100 Mg Cap) 100 mg PO BID [facility] Last Admin: 05/30/23 19:52 Dose: Not Given Ergocalciferol (Drisdol (Vitamin D=Ergocalciferol) 97114 Unit Cap) 50,000 unit PO Q7D [facility] Last Admin: 05/30/23 09:40 Dose: 50,000 unit Ipratropium [place] (Ipratropium [place] 0.5mg/2.5ml) 0.5 mg NEB [id number] PRN PRN Reason: SHORTNESS OF BREATH Last Admin: 05/30/23 20:25 Dose: 0.5 mg Melatonin (Melatonin 5 Mg Tablet) 5 mg PO BEDTIME PRN PRN PRN Reason: INSOMNIA Last Admin: 05/30/23 20:58 Dose: 5 mg Ondansetron HCl (Ondansetron 4 Mg/2 Ml Vial) 4 mg IV Q6HP PRN PRN Reason: NAUSEA / VOMITING Potassium Chloride (Potassium Cl Sa 10 Meq Tab) 10 meq PO DAILY [facility] Last Admin: 05/30/23 09:12 Dose: 10 meq Prednisone (Prednisone 20 Mg Tab) 20 mg PO BID [facility] Last Admin: 05/30/23 20:58 Dose: 20 mg Sodium Chloride (Flush Normal Saline 10 Ml) 10 ml IV BID [facility] Last Admin: 05/30/23 09:12 Dose: 10 ml Sterile Water (Water For Inj,Sterile 10 Ml) 1.2 ml IM UD PRN PRN Reason: DILUTION OF MED Ziprasidone (Ziprasidone Mesyla 20 Mg/Vial) 10 mg IM Q6H PRN PRN Reason: combative Assessment/ Plan: Nephrology No dyspnea No chest pain No acute events overnight Vitals, medications, blood work and imaging reviewed in the chart. General: In no apparent distress, Cooperative HEENT: Atraumatic Neck: Supple Respiratory: Expiratory wheezes Cardiovascular: No edema, Regular rate/rhythm Gastrointestinal: Soft and benign, Non-distended Musculoskeletal: No clubbing, No contractures Integumentary: No rashes, No cyanosis Neurological: Normal speech Laboratory Data (last 24 hrs) 05/28/23 05/28/23 05/28/23 20:30 16:38 16:38 WBC 7.60 Hgb 13.2 L Hct 39.3 L Plt Count 283 PT 13.6 H INR 1.24 APTT 35.5 Sodium 123 L Potassium 3.8 BUN 14 Creatinine 0.51 L Glucose 106 Magnesium Total Bilirubin AST ALT Alkaline Phosphatase 05/28/23 16:38 WBC Hgb Hct Plt Count PT INR APTT Sodium 122 L Potassium 3.5 BUN 16 Creatinine 0.71 Glucose 96 Magnesium 1.8 Total Bilirubin 0.6 AST < 4 L ALT 11 L Alkaline Phosphatase 66 Imagings Data: EXAM DESCRIPTION: RAD - Chest Single View - 05/28/2023 5:09 pm CLINICAL HISTORY: SOB Chest pain. COMPARISON: Chest Single View dated 05/01/2023; Chest Single View dated 04/12/2023; Chest Single View dated 04/03/2023; Chest Single View dated 04/02/2023 FINDINGS: Portable technique limits examination quality. The lungs are emphysematous but grossly clear. The heart is normal in size. No displaced fractures.Single lead pacer/defibrillator device. IMPRESSION: Mild diffuse emphysema. Conclusions/Impression: Hyponatremia may be multifactorial including poor oral intake Chronic Hyponatremia -Continue IVF with NS Hypokalemia -Replete prn Metabolic Alkalosis in the setting of COPD -Replete potassium HTN -Continue Benazepril Hypoalbuminemia -Recommend protein supplementation Hospitalist note reviewed
[2023-05-31] MEDS ORDERED: ALPRAZOLAM 0.25 MG TABLET PO ONE (02:31)
--- NOTE | 2023-05-31 06:46 | P.PN ---
Date of Service: 05/31/23 Subjective: Feels some improvement each day , and does feel like he has been having some degree of confusion Breathing is okay, currently on 5L [place] Ambulating to restroom, no trouble breathing if on oxygen does not want to use BIPAP / CPAP; does not wear/use his prescribed CPAP at home otherwise no new / worsening problems ROS: 10 point ROS as noted above, otherwise negative Physical Exam: GEN: Alert, orientedx3, mild confusion, NAD HEENT: Normal conjunctiva, sclera anicteric CV: Regular rate and rhythm, no edema Pulm: Nonlabored respirations on 5L [place] at rest, diminished at bases b/l, +rhonchi ABD: Soft, nontender, nondistended Neuro: Normal speech, normal affect vitals reviewed Problem List: Acute hypoxic hypercarbic respiratory failure secondary to COPD exacerbation COPD exacerbation, acute on chronic COPD Sleep apnea Chronic diastolic heart failure Hyponatremia, acute History of CVA Tobacco use Hypertension Acute hypoxic hypercarbic respiratory failure secondary to COPD exacerbation COPD exacerbation, acute on chronic COPD Sleep apnea has CPAP at home but doesn't like to use it because its uncomfortable CO2 retention is worse causing more confusion. Was hypontremic on admission which was likely biggest contributor to confusion Pulm consulted continue steroids, budesonide PRN nebulizers continue empiric IV azithromycin (05/30-) BiPAP as needed. 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 Placed on nicoderm patch. VTE: SCD for now Code: Full Dispo: Home, ~2-3 days
[2023-05-31] MEDS: BUDESONIDE 0.5 MG/2 ML NEB NEB SCH (07:50)
[2023-05-31 08:17] LABS: Absolute Lymphocytes (CBC) 0.6 K/uL (0.7-4.9); Hematocrit 39.6 % (39.6-49.0); Lymphocytes % 5.7 % (15.3-44.8); MCV 97.2 fL (80-100); MPV 7.9 fL (7.6-11.3); Platelets 196 thou/uL (152-406); RBC Red Blood Cell Count 4.07 M/uL (4.33-5.43)
[2023-05-31 08:36] LABS: ALT/SGPT 11 U/L (16-61); Albumin 2.8 g/dL (3.4-5.0); Alkaline Phosphatase 60 U/L (45-117); BUN Blood Urea Nitrogen 29 mg/dL (7-18); Bicarbonate 44 mEq/L (21-32); Bilirubin Total 0.2 mg/dL (0.2-1.0); Glomerular Filtration Rate 104 ml/min (=/>90); Glucose Level 167 mg/dL (74-106); Magnesium 1.9 mg/dL (1.6-2.4); Phosphorus 1.7 mg/dL (2.5-4.9); Potassium 4.1 mEq/L (3.5-5.1); Protein, Total 5.5 g/dL (6.4-8.2); Sodium Level 132 mEq/L (136-145)
[2023-05-31 08:41] LABS: AST/SGOT < 3 U/L (15-37)
[2023-05-31] MEDS: AZITHROMYCIN 250 MG TAB PO SCH (09:27)
[2023-05-31] MEDS: BENAZEPRIL 10 MG TAB PO SCH (09:27)
[2023-05-31] MEDS: carvediloL 3.125 MG TAB PO SCH ×2 (09:28→17:00)
[2023-05-31] MEDS: predniSONE 20 MG TAB PO SCH ×2 (09:28→20:28)
[2023-05-31] MEDS: DOCUSATE NA 100 MG CAP PO SCH ×2 (09:28→20:28)
[2023-05-31] MEDS: POTASSIUM CL SA 10 MEQ TAB PO SCH (09:28)
[2023-05-31] MEDS: DULERA 100/5 (MOMETASONE/FORMOTEROL) INHALER IH SCH ×2 (12:34→20:30)
--- NOTE | 2023-05-31 12:36 | P.CNS ---
Date of Consult: 05/31/23 Reason for Consult: COPD exacerbation Chief Complaint: COPD exacerbation, hyponatremia History of Present Illness: Patient is 62 years of age been sick for about 10 days ending of worsening cough congestion shortness of breath patient is an active smoker 1 pack a day history of coronary artery disease. Out of his medication also was hyponatremic only stable no change in his condition 2-year-old male with a past medical history of COPD, CVA, atrial fibrillation, hypertension, hyperlipidemia, [place], skull fracture, presents to the emergency room with shortness of breath breath. Reports symptoms started Allergies No Known Allergies Allergy (Verified 04/12/23 21:50) Home Medications: Benazepril HCl [Lotensin*] 10 mg PO DAILY #30 tab 03/14/18 Albuterol Neb [Proventil 0.083% Neb Soln] 1 inh Q4H PRN 03/20/23 Atorvastatin Calcium [Lipitor] 40 mg PO BEDTIME 03/20/23 Rivaroxaban [Xarelto*] 1 tab PO DAILY 03/20/23 Albuterol Neb [Proventil 0.083% Neb Soln] 2.5 mg NEB [id number] #60 amp 04/16/23 Ipratropium Neb [Atrovent*] 0.5 mg NEB [id number] #60 amp 04/16/23 Carvedilol [Coreg] 25 mg PO BID 05/29/23 Fluticasone [Flonase 50MCG Nasal [place]*] 1 spr CORNELIUS DAILY 05/29/23 - Past Medical/Surgical History Diabetic: No -: COPD -: Paroxysmal Afib -: HTN -: Tobacco abuse -: CVA -: skull fx -: defibrilator -: Home O2 -: Hx Hyponatremia (Dr. Hargrove/ Dr. Menjivar) -: Appendectomy - Family History Father Medical History: Diabetes Mother Medical History: Diabetes - Social History Smoking Status: Former smoker Alcohol use: No CD- Drugs: No Caffeine use: Yes Place of Residence: Home Review of Systems 10-point ROS is otherwise unremarkable General: Weakness Respiratory: Cough, Shortness of Breath Physical Examination Temp Pulse Resp BP Pulse Ox 97.8 F 94 H 18 128/63 93 05/31/23 08:00 05/31/23 09:28 05/31/23 08:00 05/31/23 09:28 05/31/23 08:00 General: Alert, Oriented x3, Mild distress Neck: Supple Respiratory: Clear to auscultation bilaterally, Diminished Cardiovascular: No edema, Normal pulses, Regular rate/rhythm Gastrointestinal: Normal bowel sounds, Soft and benign Musculoskeletal: No clubbing, No swelling - Problems (1) COPD exacerbation Current Visit: No Status: Acute Plan: Patient is 62 years of age heavy smoker admitted with worsening cough congestion for the past week patient's mild hyponatremia has resolved otherwise labs are unremarkable x-ray reviewed shows severe hyperinflation with COPD and a left- sided pacemaker possible discharge tomorrow on low-dose prednisone and long-a cting bronchodilator
[2023-05-31] MEDS: NICOTINE 14 MG/PAT TD SCH (13:23)
[2023-05-31] MEDS: IPRATROPIUM BROM 0.5MG/2.5ML NEB SCH ×2 (14:00→19:30)
[2023-05-31] MEDS ORDERED: POTASS/SODIUM PHOSPHATE 1 PKT POWD.PACK PO ONE (18:45)
--- NOTE | 2023-05-31 18:46 | P.PN ---
Date of Service: 05/31/23 Vital Signs Temp Pulse Resp BP Pulse Ox 97.9 F 102 H 20 111/54 L 92 05/31/23 16:00 05/31/23 16:00 05/31/23 16:00 05/31/23 16:00 05/31/23 16:00 Medications Acetaminophen (Acetaminophen 500 Mg Tab) 500 mg PO Q4HP PRN PRN Reason: Pain scale 2-4 (Mild) Hydrocodone Bitart/Acetaminophen (Hydrocodone/Apap 7.5/325 Mg Tab) 1 tab PO Q6H PRN PRN Reason: Pain scale 5-7 (Moderate) Albuterol Sulfate (Albuterol 2.5 Mg/3 Ml Neb Ingrid) 2.5 mg NEB [id number] PRN PRN Reason: SHORTNESS OF BREATH Last Admin: 05/30/23 20:25 Dose: 2.5 mg Atorvastatin Calcium (Atorvastatin 40 Mg Tab) 40 mg PO BEDTIME [facility] Azithromycin (Azithromycin 250 Mg Tab) 500 mg PO DAILY [facility] Stop: 06/01/23 09:01 Last Admin: 05/31/23 09:27 Dose: 500 mg Benazepril HCl (Benazepril 10 Mg Tab) 10 mg PO DAILY [facility] Last Admin: 05/31/23 09:27 Dose: 10 mg Carvedilol (Carvedilol 3.125 Mg Tab) 3.125 mg PO BIDWM [facility] Last Admin: 05/31/23 09:28 Dose: 3.125 mg Docusate Sodium (Docusate Na 100 Mg Cap) 100 mg PO BID [facility] Last Admin: 05/31/23 09:28 Dose: 100 mg Ergocalciferol (Drisdol (Vitamin D=Ergocalciferol) 01729 Unit Cap) 50,000 unit PO Q7D [facility] Last Admin: 05/30/23 09:40 Dose: 50,000 unit Ipratropium [place] (Ipratropium Brom 0.5mg/2.5ml) 0.5 mg NEB [id number] [facility] Last Admin: 05/31/23 14:00 Dose: Not Given Melatonin (Melatonin 5 Mg Tablet) 5 mg PO BEDTIME PRN PRN PRN Reason: INSOMNIA Last Admin: 05/30/23 20:58 Dose: 5 mg Nicotine (Nicotine 14 Mg/Pat) 14 mg TD DAILY [facility] Last Admin: 05/31/23 13:23 Dose: 14 mg Ondansetron HCl (Ondansetron 4 Mg/2 Ml Vial) 4 mg IV Q6HP PRN PRN Reason: NAUSEA / VOMITING Potassium Chloride (Potassium Cl Sa 10 Meq Tab) 10 meq PO DAILY [facility] Last Admin: 05/31/23 09:28 Dose: 10 meq Prednisone (Prednisone 20 Mg Tab) 20 mg PO BID [facility] Last Admin: 05/31/23 09:28 Dose: 20 mg Rivaroxaban (Rivaroxaban 15 Mg Tablet) 15 mg PO DAILY [facility] Sodium Chloride (Flush Normal Saline 10 Ml) 10 ml IV BID [facility] Last Admin: 05/31/23 09:00 Dose: Not Given Sterile Water (Water For Inj,Sterile 10 Ml) 1.2 ml IM UD PRN PRN Reason: DILUTION OF MED Ziprasidone (Ziprasidone Mesyla 20 Mg/Vial) 10 mg IM Q6H PRN PRN Reason: combative Assessment/ Plan: Nephrology No dyspnea No chest pain Fair appetite No acute events overnight Vitals, medications, blood work and imaging reviewed in the chart. General: In no apparent distress, Cooperative HEENT: Atraumatic Neck: Supple Respiratory: Expiratory wheezes Cardiovascular: No edema, Regular rate/rhythm Gastrointestinal: Soft and benign, Non-distended Musculoskeletal: No clubbing, No contractures Integumentary: No rashes, No cyanosis Neurological: Normal speech Laboratory Data (last 24 hrs) 05/28/23 05/28/23 05/28/23 20:30 16:38 16:38 WBC 7.60 Hgb 13.2 L Hct 39.3 L Plt Count 283 PT 13.6 H INR 1.24 APTT 35.5 Sodium 123 L Potassium 3.8 BUN 14 Creatinine 0.51 L Glucose 106 Magnesium Total Bilirubin AST ALT Alkaline Phosphatase 05/28/23 16:38 WBC Hgb Hct Plt Count PT INR APTT Sodium 122 L Potassium 3.5 BUN 16 Creatinine 0.71 Glucose 96 Magnesium 1.8 Total Bilirubin 0.6 AST < 4 L ALT 11 L Alkaline Phosphatase 66 Imagings Data: EXAM DESCRIPTION: RAD - Chest Single View - 05/28/2023 5:09 pm CLINICAL HISTORY: SOB Chest pain. COMPARISON: Chest Single View dated 05/01/2023; Chest Single View dated 04/12/2023; Chest Single View dated 04/03/2023; Chest Single View dated 04/02/2023 FINDINGS: Portable technique limits examination quality. The lungs are emphysematous but grossly clear. The heart is normal in size. No displaced fractures.Single lead pacer/defibrillator device. IMPRESSION: Mild diffuse emphysema. Conclusions/Impression: Hyponatremia may be multifactorial including poor oral intake Chronic Hyponatremia -Encourage nutrition Hypokalemia -Replete as ordered Metabolic Alkalosis in the setting of COPD -Replete potassium Hypophosphatemia -Neutraphos X1 HTN -DC Benazepril and Coreg -Start Metoprolol BID Hypoalbuminemia -Recommend protein supplementation Hospitalist & Pulmonary note reviewed
[2023-05-31] MEDS: METOPROLOL TAR 25 MG TAB PO SCH (20:27)
[2023-05-31] MEDS: MELATONIN 5 MG TABLET PO PRN (20:28)
[2023-05-31] MEDS: ATORVASTATIN 40 MG TAB PO SCH (20:29)
[2023-06-01] MEDS: ALBUTEROL 2.5 MG/3 ML NEB SOL NEB PRN (00:10)
[2023-06-01] MEDS: IPRATROPIUM BROM 0.5MG/2.5ML NEB SCH ×4 (00:10→20:25)
[2023-06-01 03:31] LABS: Absolute Lymphocytes (CBC) 0.4 K/uL (0.7-4.9); MCV 96.3 fL (80-100); MPV 8.2 fL (7.6-11.3); Platelets 183 thou/uL (152-406); RBC Red Blood Cell Count 3.53 M/uL (4.33-5.43)
[2023-06-01 03:54] LABS: Albumin 2.6 g/dL (3.4-5.0); Alkaline Phosphatase 48 U/L (45-117); BUN Blood Urea Nitrogen 28 mg/dL (7-18); Bicarbonate > 45 mEq/L (21-32); Bilirubin Total 0.3 mg/dL (0.2-1.0); Glomerular Filtration Rate 115 ml/min (=/>90); Glucose Level 188 mg/dL (74-106); Potassium 4.3 mEq/L (3.5-5.1); Sodium Level 131 mEq/L (136-145)
[2023-06-01 03:55] LABS: ALT/SGPT < 10 U/L (16-61); AST/SGOT < 3 U/L (15-37)
[2023-06-01 04:23] LABS: Blood Morphology Comment NOT SEEN (NOT SEEN); Platelet Estimate ADEQ
[2023-06-01] MEDS: METOPROLOL TAR 25 MG TAB PO SCH ×2 (05:56→18:25)
--- NOTE | 2023-06-01 06:57 | P.PN ---
Date of Service: 06/01/23 Subjective: denies any new/worsening symptoms states he feels "ok" appears fatigued / mild confusion refusing bipap ROS: 10 point ROS as noted above, otherwise negative Physical Exam: GEN: Alert, orientedx2, mild confusion, NAD HEENT: Normal conjunctiva, sclera anicteric CV: Regular rate and rhythm, no edema Pulm: Nonlabored respirations on 4L NC at rest, diminished at bases b/l, ABD: Soft, nontender, nondistended Neuro: slight confusion, non-focal vitals reviewed Problem List: Acute hypoxic hypercarbic respiratory failure secondary to COPD exacerbation COPD exacerbation, acute on chronic COPD Sleep apnea Chronic diastolic heart failure Hyponatremia, acute on chronic History of CVA Tobacco use Hypertension Acute hypoxic hypercarbic respiratory failure secondary to COPD exacerbation COPD exacerbation, acute on chronic COPD Sleep apnea has CPAP at home but doesn't like to use it because it's uncomfortable CO2 retention is worse causing more confusion. Was hypontremic on admission which was likely biggest contributor to confusion Pulm consulted continue steroids, budesonide PRN nebulizers continue empiric IV azithromycin (05/30-) BiPAP as needed. 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 Placed on nicoderm patch. VTE: SCD for now Code: Full Dispo: Home, ~2 days
[2023-06-01] MEDS: AZITHROMYCIN 250 MG TAB PO SCH ×2 (09:00→10:44)
[2023-06-01] MEDS: POTASSIUM CL SA 10 MEQ TAB PO SCH (10:44)
[2023-06-01] MEDS: RIVAROXABAN 15 MG TABLET PO SCH (10:44)
[2023-06-01] MEDS: predniSONE 20 MG TAB PO SCH ×2 (10:45→20:44)
[2023-06-01] MEDS: NICOTINE 14 MG/PAT TD SCH (10:45)
[2023-06-01] MEDS: DOCUSATE NA 100 MG CAP PO SCH ×2 (10:45→20:44)
[2023-06-01] MEDS: DULERA 100/5 (MOMETASONE/FORMOTEROL) INHALER IH SCH ×2 (10:49→20:44)
--- NOTE | 2023-06-01 13:25 | ECHO ---
HEIGHT: 5 ft 10 in WEIGHT: 170 lb 0 oz DATE OF STUDY: 06/01/[address]: Dameon Cedillo MD 2-DIMENSIONAL: YES M.MODE: YES DOPPLER: YES COLOR FLOW: YES TDS: YES PORTABLE: YES DEFINITY: BUBBLE STUDY: DIAGNOSIS: POSSIBLE CONGESTIVE HEART FAILURE CARDIAC HISTORY: CATHERIZATION: SURGERY: PROSTHETIC VALVE: PACEMAKER: MEASUREMENTS (cm) DIASTOLIC (NORMALS) SYSTOLIC (NORMALS) IVSd 0.9 (0.6-1.2) LA Diam (1.9-4.0) LVEF 51% LVIDd 3.2 (3.5-5.7) LVIDs 2.4 (2.0-3.5) %FS 25% LVPWd 1.1 (0.6-1.2) Ao Diam 2.9 (2.0-3.7) 2 DIMENSIONAL ASSESSMENT: RIGHT ATRIUM: NOT WELL SEEN LEFT ATRIUM: NORMAL RIGHT VENTRICLE: NOT WELL SEEN LEFT VENTRICLE: NORMAL TRICUSPID VALVE: MILD TRICUSPID REGURGITATION MITRAL VALVE: NORMAL PULMONIC VALVE: NORMAL AORTIC VALVE: MILD AORTIC INSUFFICIENCY PERICARDIAL EFFUSION: NONE AORTIC ROOT: NORMAL LEFT VENTRICULAR WALL MOTION: NORMAL DOPPLER/COLOR FLOW: SEE BELOW COMMENTS: 1. NORMAL LEFT VENTRICULAR EJECTION FRACTION 55-60% 2. NORMAL WALL MOTION 3. NORMAL DIASTOLIC FUNCTION 4. POOR WINDOWS TECHNOLOGIST: SAGRARIO WATT
--- NOTE | 2023-06-01 16:33 | P.PN ---
Subjective Date of Service: 06/01/23 Chief Complaint: COPD exacerbation Subjective: Improving (Patient is improving doing well has improved significantly wants to go home) Review of Systems Unremarkable Physical Examination - Vital Signs Temperature: 97.2 F Blood Pressure: 112/61 Pulse: 86 Respirations: 18 Pulse Ox (%): 96 - Physical Exam General: Alert, Oriented x2 Neck: Supple Respiratory: Clear to auscultation bilaterally Cardiovascular: No edema, Regular rate/rhythm Assessment And Plan - Current Problems (Diagnosis) (1) COPD exacerbation Current Visit: No Status: Acute Plan: Patient admitted with COPD exacerbation has improved patient's bicarbonate is significantly elevated check another blood gas add Diamox I have added some IV fluids hyponatremia is probably from volume depletion has no change in present therapy patient is a little disoriented Physician Review: Patient Assessed, Agree with Above Assessment and Plan
[2023-06-01 17:37] LABS: Arterial Blood Carboxyhemoglob 1.3 % (0-1.5); Blood Gas Oxyhemoglobin 77.2 % (94-97); Blood O2 Saturation 79.2 % (92-98.5)
[2023-06-01] MEDS: acetaZOLAMIDE 250 MG TAB PO SCH (18:25)
[2023-06-01] MEDS: ATORVASTATIN 40 MG TAB PO SCH (20:44)
[2023-06-01] MEDS: MELATONIN 5 MG TABLET PO PRN (21:12)
[2023-06-01] MEDS: NA CHLORIDE 0.9% 1,000 ML IV SCH (21:20)
--- NOTE | 2023-06-01 21:37 | P.PN ---
Date of Service: 06/01/23 Vital Signs Temp Pulse Resp BP Pulse Ox 97.2 F 86 18 112/61 95 06/01/23 16:35 06/01/23 18:25 06/01/23 16:35 06/01/23 18:25 06/01/23 18:10 Medications Acetaminophen (Acetaminophen 500 Mg Tab) 500 mg PO Q4HP PRN PRN Reason: Pain scale 2-4 (Mild) Hydrocodone Bitart/Acetaminophen (Hydrocodone/Apap 7.5/325 Mg Tab) 1 tab PO Q6H PRN PRN Reason: Pain scale 5-7 (Moderate) Acetazolamide (Acetazolamide 250 Mg Tab) 250 mg PO DAILY [facility] BEDS AT [facility] Last Admin: 06/01/23 18:25 Dose: 250 mg Albuterol Sulfate (Albuterol 2.5 Mg/3 Ml Neb Ingrid) 2.5 mg NEB [id number] PRN PRN Reason: SHORTNESS OF BREATH Last Admin: 06/01/23 00:10 Dose: 2.5 mg Atorvastatin Calcium (Atorvastatin 40 Mg Tab) 40 mg PO BEDTIME [facility]S [facility]CLUDE 234 BEDS AT [facility] Last Admin: 06/01/23 20:44 Dose: 40 mg Azithromycin (Azithromycin 250 Mg Tab) 500 mg PO DAILY [facility] 234 BEDS AT [facility] Stop: 06/02/23 09:01 Last Admin: 06/01/23 10:44 Dose: 500 mg Docusate Sodium (Docusate Na 100 Mg Cap) 100 mg PO BID [facility] 234 BEDS AT [facility] Last Admin: 06/01/23 20:44 Dose: 100 mg Ergocalciferol (Drisdol (Vitamin D=Ergocalciferol) 10406 Unit Cap) 50,000 unit PO Q7D [facility] 234 BEDS AT [facility] Last Admin: 05/30/23 09:40 Dose: 50,000 unit Sodium Chloride (Ns 1000 Ml Ivbag) 1,000 mls @ 75 mls/hr IV .[id number] COUNTS [facility]CLUDE 234 BEDS AT [facility] Last Admin: 06/01/23 21:20 Dose: 1,000 mls Ipratropium [place] (Ipratropium Brom 0.5mg/2.5ml) 0.5 mg NEB [id number] [facility]S [facility]CLUDE 234 BEDS AT [facility] Last Admin: 06/01/23 14:00 Dose: 0.5 mg Melatonin (Melatonin 5 Mg Tablet) 5 mg PO BEDTIME PRN PRN PRN Reason: INSOMNIA Last Admin: 06/01/23 21:12 Dose: 5 mg Metoprolol Tartrate (Metoprolol Tar 25 Mg Tab) 25 mg PO BID 6AM 6PM COUNTS [facility]CLUDE 234 BEDS AT [facility] Last Admin: 06/01/23 18:25 Dose: 25 mg Nicotine (Nicotine 14 Mg/Pat) 14 mg TD DAILY [facility]CLUDE 234 BEDS AT [facility] Last Admin: 06/01/23 10:45 Dose: 14 mg Ondansetron HCl (Ondansetron 4 Mg/2 Ml Vial) 4 mg IV Q6HP PRN PRN Reason: NAUSEA / VOMITING Potassium Chloride (Potassium Cl Sa 10 Meq Tab) 10 meq PO DAILY [facility] 234 BEDS AT [facility] Last Admin: 06/01/23 10:44 Dose: 10 meq Prednisone (Prednisone 20 Mg Tab) 20 mg PO BID [facility]CLUDE 234 BEDS AT [facility] Last Admin: 06/01/23 20:44 Dose: 20 mg Rivaroxaban (Rivaroxaban 15 Mg Tablet) 15 mg PO DAILY [facility]CLUDE 234 BEDS AT [facility] Last Admin: 06/01/23 10:44 Dose: 15 mg Sodium Chloride (Flush Normal Saline 10 Ml) 10 ml IV BID [facility]S [facility]CLUDE 234 BEDS AT [facility] Last Admin: 06/01/23 20:44 Dose: Not Given Sterile Water (Water For Inj,Sterile 10 Ml) 1.2 ml IM UD PRN PRN Reason: DILUTION OF MED Ziprasidone (Ziprasidone Mesyla 20 Mg/Vial) 10 mg IM Q6H PRN PRN Reason: combative Assessment/ Plan: Nephrology No dyspnea No chest pain Fair appetite No acute events overnight Vitals, medications, blood work and imaging reviewed in the chart. General: In no apparent distress, Cooperative HEENT: Atraumatic Neck: Supple Respiratory: Expiratory wheezes Cardiovascular: No edema, Regular rate/rhythm Gastrointestinal: Soft and benign, Non-distended Musculoskeletal: No clubbing, No contractures Integumentary: No rashes, No cyanosis Neurological: Normal speech Laboratory Data (last 24 hrs) 05/28/23 05/28/23 05/28/23 20:30 16:38 16:38 WBC 7.60 Hgb 13.2 L Hct 39.3 L Plt Count 283 PT 13.6 H INR 1.24 APTT 35.5 Sodium 123 L Potassium 3.8 BUN 14 Creatinine 0.51 L Glucose 106 Magnesium Total Bilirubin AST ALT Alkaline Phosphatase 05/28/23 16:38 WBC Hgb Hct Plt Count PT INR APTT Sodium 122 L Potassium 3.5 BUN 16 Creatinine 0.71 Glucose 96 Magnesium 1.8 Total Bilirubin 0.6 AST < 4 L ALT 11 L Alkaline Phosphatase 66 Imagings Data: EXAM DESCRIPTION: RAD - Chest Single View - 05/28/2023 5:09 pm CLINICAL HISTORY: SOB Chest pain. COMPARISON: Chest Single View dated 05/01/2023; Chest Single View dated 04/12/2023; Chest Single View dated 04/03/2023; Chest Single View dated 04/02/2023 FINDINGS: Portable technique limits examination quality. The lungs are emphysematous but grossly clear. The heart is normal in size. No displaced fractures.Single lead pacer/defibrillator device. IMPRESSION: Mild diffuse emphysema. Conclusions/Impression: Hyponatremia may be multifactorial including poor oral intake Chronic Hyponatremia -Encourage nutrition -Continue IVF Hypokalemia -Replete as ordered Metabolic Alkalosis in the setting of COPD -Replete potassium -Diamox has been started Hypophosphatemia -Neutraphos prn HTN -Continue Metoprolol BID Hypoalbuminemia -Recommend protein supplementation Hospitalist & Pulmonary note reviewed
[2023-06-02] MEDS: IPRATROPIUM BROM 0.5MG/2.5ML NEB SCH ×4 (01:20→19:50)
[2023-06-02 03:38] LABS: Phosphorus 1.7 mg/dL (2.5-4.9); Potassium 3.9 mEq/L (3.5-5.1); Uric Acid 3.4 mg/dL (3.5-7.2)
[2023-06-02] MEDS: METOPROLOL TAR 25 MG TAB PO SCH ×2 (05:32→20:24)
[2023-06-02] MEDS: NA CHLORIDE 0.9% 1,000 ML IV SCH ×2 (06:20→20:25)
--- NOTE | 2023-06-02 07:16 | P.PN ---
Date of Service: 06/02/23 Subjective: more alert this morning, agreeable to try bipap more tonight feels he's making improvement no new/worse symptoms wore bipap last night for ~25 min ROS: 10 point ROS as noted above, otherwise negative Physical Exam: GEN: Alert, orientedx3, NAD HEENT: Normal conjunctiva, sclera anicteric CV: Regular rate and rhythm, no edema Pulm: Nonlabored respirations on 4L NC at rest, diminished at bases b/l, ABD: Soft, nontender, nondistended Neuro: generalized weakness vitals reviewed Problem List: Acute hypoxic hypercarbic respiratory failure secondary to COPD exacerbation COPD exacerbation, acute on chronic COPD Sleep apnea Chronic diastolic heart failure Hyponatremia, acute on chronic History of CVA Tobacco use Hypertension Acute hypoxic hypercarbic respiratory failure secondary to COPD exacerbation COPD exacerbation, acute on chronic COPD Sleep apnea has CPAP at home, initially stated doesn't use much; today stating he uses it consistently CO2 retention is worse causing more confusion. Was hypontremic on admission which was likely biggest contributor to confusion Pulm consulted continue steroids, budesonide PRN nebulizers diamox azithromycin dc'd (05/30-06/01) BiPAP as needed. 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 Placed on nicoderm patch. VTE: SCD for now Code: Full Dispo: Home, ~1-2 days
[2023-06-02] MEDS: NICOTINE 14 MG/PAT TD SCH (09:00)
[2023-06-02] MEDS ORDERED: POTASSIUM CL SA 10 MEQ TAB PO ONE (09:00)
[2023-06-02] MEDS: DULERA 100/5 (MOMETASONE/FORMOTEROL) INHALER IH SCH ×2 (09:00→21:00)
[2023-06-02] MEDS: AZITHROMYCIN 250 MG TAB PO SCH (09:09)
[2023-06-02] MEDS: POTASS/SODIUM PHOSPHATE 1 PKT POWD.PACK PO SCH ×3 (09:10→10:00)
[2023-06-02] MEDS: RIVAROXABAN 15 MG TABLET PO SCH (09:10)
[2023-06-02] MEDS: DOCUSATE NA 100 MG CAP PO SCH ×2 (09:10→20:24)
[2023-06-02] MEDS: POTASSIUM CL SA 10 MEQ TAB PO SCH (09:10)
[2023-06-02] MEDS: acetaZOLAMIDE 250 MG TAB PO SCH (09:11)
[2023-06-02] MEDS: predniSONE 20 MG TAB PO SCH ×2 (09:11→20:24)
[2023-06-02] MEDS ORDERED: POTASS/SODIUM PHOSPHATE 1 PKT POWD.PACK PO SCH (12:00)
[2023-06-02] MEDS ORDERED: DRISDOL (VITAMIN D=ERGOCALCIFEROL) 50000 UNIT CAP PO SCH (12:00)
--- NOTE | 2023-06-02 19:55 | P.PN ---
Date of Service: 06/02/23 Vital Signs Temp Pulse Resp BP Pulse Ox 97.8 F 72 16 128/74 100 06/02/23 16:00 06/02/23 16:00 06/02/23 16:00 06/02/23 16:00 06/02/23 16:00 Medications Acetaminophen (Acetaminophen 500 Mg Tab) 500 mg PO Q4HP PRN PRN Reason: Pain scale 2-4 (Mild) Hydrocodone Bitart/Acetaminophen (Hydrocodone/Apap 7.5/325 Mg Tab) 1 tab PO Q6H PRN PRN Reason: Pain scale 5-7 (Moderate) Acetazolamide (Acetazolamide 250 Mg Tab) 250 mg PO DAILY [facility] Last Admin: 06/02/23 09:11 Dose: 250 mg Albuterol Sulfate (Albuterol 2.5 Mg/3 Ml Neb Ingrid) 2.5 mg NEB [id number] PRN PRN Reason: SHORTNESS OF BREATH Last Admin: 06/01/23 00:10 Dose: 2.5 mg Atorvastatin Calcium (Atorvastatin 40 Mg Tab) 40 mg PO BEDTIME [facility] Last Admin: 06/01/23 20:44 Dose: 40 mg Docusate Sodium (Docusate Na 100 Mg Cap) 100 mg PO BID [facility] Last Admin: 06/02/23 09:10 Dose: Not Given Ergocalciferol (Drisdol (Vitamin D=Ergocalciferol) 39493 Unit Cap) 50,000 unit PO Q7D [facility] Last Admin: 06/02/23 12:00 Dose: 50,000 unit Sodium Chloride (Ns 1000 Ml Ivbag) 1,000 mls @ 75 mls/hr IV .[id number] [facility] Last Admin: 06/02/23 06:20 Dose: Not Given Ipratropium [place] (Ipratropium Brom 0.5mg/2.5ml) 0.5 mg NEB [id number] [facility] Last Admin: 06/02/23 14:00 Dose: Not Given Melatonin (Melatonin 5 Mg Tablet) 5 mg PO BEDTIME PRN PRN PRN Reason: INSOMNIA Last Admin: 06/01/23 21:12 Dose: 5 mg Metoprolol Tartrate (Metoprolol Tar 25 Mg Tab) 25 mg PO BID 6AM 6PM [facility] Last Admin: 06/02/23 05:32 Dose: 25 mg Nicotine (Nicotine 14 Mg/Pat) 14 mg TD DAILY [facility] Last Admin: 06/02/23 09:00 Dose: 14 mg Ondansetron HCl (Ondansetron 4 Mg/2 Ml Vial) 4 mg IV Q6HP PRN PRN Reason: NAUSEA / VOMITING Potassium Chloride (Potassium Cl Sa 10 Meq Tab) 10 meq PO DAILY [facility] Last Admin: 06/02/23 09:10 Dose: 10 meq Prednisone (Prednisone 20 Mg Tab) 20 mg PO BID [facility] Last Admin: 06/02/23 09:11 Dose: 20 mg Rivaroxaban (Rivaroxaban 15 Mg Tablet) 15 mg PO DAILY [facility] Last Admin: 06/02/23 09:10 Dose: 15 mg Sodium Chloride (Flush Normal Saline 10 Ml) 10 ml IV BID [facility] Last Admin: 06/02/23 09:00 Dose: Not Given Sterile Water (Water For Inj,Sterile 10 Ml) 1.2 ml IM UD PRN PRN Reason: DILUTION OF MED Last Admin: 06/02/23 00:19 Dose: 1.2 ml Ziprasidone (Ziprasidone Mesyla 20 Mg/Vial) 10 mg IM Q6H PRN PRN Reason: combative Last Admin: 06/02/23 00:20 Dose: 10 mg Assessment/ Plan: Nephrology No dyspnea No chest pain Fair appetite No acute events overnight Vitals, medications, blood work and imaging reviewed in the chart. General: In no apparent distress, Cooperative HEENT: Atraumatic Neck: Supple Respiratory: Normal Resp Effort Cardiovascular: No edema, Regular rate/rhythm Gastrointestinal: Soft and benign, Non-distended Musculoskeletal: No clubbing, No contractures Integumentary: No rashes, No cyanosis Neurological: Normal speech Laboratory Data (last 24 hrs) 05/28/23 05/28/23 05/28/23 20:30 16:38 16:38 WBC 7.60 Hgb 13.2 L Hct 39.3 L Plt Count 283 PT 13.6 H INR 1.24 APTT 35.5 Sodium 123 L Potassium 3.8 BUN 14 Creatinine 0.51 L Glucose 106 Magnesium Total Bilirubin AST ALT Alkaline Phosphatase 05/28/23 16:38 WBC Hgb Hct Plt Count PT INR APTT Sodium 122 L Potassium 3.5 BUN 16 Creatinine 0.71 Glucose 96 Magnesium 1.8 Total Bilirubin 0.6 AST < 4 L ALT 11 L Alkaline Phosphatase 66 Imagings Data: EXAM DESCRIPTION: RAD - Chest Single View - 05/28/2023 5:09 pm CLINICAL HISTORY: SOB Chest pain. COMPARISON: Chest Single View dated 05/01/2023; Chest Single View dated 04/12/2023; Chest Single View dated 04/03/2023; Chest Single View dated 04/02/2023 FINDINGS: Portable technique limits examination quality. The lungs are emphysematous but grossly clear. The heart is normal in size. No displaced fractures.Single lead pacer/defibrillator device. IMPRESSION: Mild diffuse emphysema. Conclusions/Impression: Hyponatremia may be multifactorial including poor oral intake Chronic Hyponatremia -Encourage nutrition -Continue IVF Hypokalemia -Replete as ordered Metabolic Alkalosis in the setting of COPD -Replete potassium -Continue low dose Diamox Hypophosphatemia -Neutraphos as ordered HTN -Continue Metoprolol BID Hypoalbuminemia -Recommend protein supplementation Hospitalist & Pulmonary note reviewed
[2023-06-02] MEDS: ATORVASTATIN 40 MG TAB PO SCH (20:24)
[2023-06-02] MEDS: MELATONIN 5 MG TABLET PO PRN (20:25)
[2023-06-03] MEDS: IPRATROPIUM BROM 0.5MG/2.5ML NEB SCH ×3 (00:10→08:40)
[2023-06-03] MEDS: METOPROLOL TAR 25 MG TAB PO SCH (05:32)
[2023-06-03 07:11] LABS: Potassium 4.6 mEq/L (3.5-5.1)
[2023-06-03] MEDS: acetaZOLAMIDE 250 MG TAB PO SCH (08:52)
[2023-06-03] MEDS: DOCUSATE NA 100 MG CAP PO SCH (08:52)
[2023-06-03] MEDS: DULERA 100/5 (MOMETASONE/FORMOTEROL) INHALER IH SCH (08:52)
[2023-06-03] MEDS: RIVAROXABAN 15 MG TABLET PO SCH (08:52)
[2023-06-03] MEDS: POTASSIUM CL SA 10 MEQ TAB PO SCH (08:52)
[2023-06-03] MEDS: NICOTINE 14 MG/PAT TD SCH (08:53)
[2023-06-03] MEDS: predniSONE 20 MG TAB PO SCH (08:53)
[2023-06-03] MEDS: NA CHLORIDE 0.9% 1,000 ML IV SCH (09:00)
--- NOTE | 2023-06-03 09:44 | P.DS ---
Admission Date: 05/29/23 Discharge Date: 06/03/23 Disposition: ROUTINE DISCHARGE Discharge Condition: FAIR Reason for Admission: COPD exacerbation - Problems (1) COPD exacerbation Current Visit: No Status: Acute Brief History of Present Illness: Patient is 62 years of age been sick for about 10 days ending of worsening cough congestion shortness of breath patient is an active smoker 1 pack a day history of coronary artery disease. Out of his medication also was hyponatremic only stable no change in his condition 2-year-old male with a past medical history of COPD, CVA, atrial fibrillation, hypertension, hyperlipidemia, NM, skull fracture, presents to the emergency room with shortness of breath breath. Reports symptoms started Hospital Course: Patient is 62 years of age admitted with COPD exacerbation hypoxic hypercapnic respiratory failure patient was treated conservatively with Diamox IV fluids nephrology consulted patient was also mildly hyponatremic he has oxygen at home At the time of discharge he was alert oriented responsive cooperative wanted to go home He needs a long-acting bronchodilator a trilogy was faxed in addition to low- dose prednisone and Diamox all his other medications needs to continue he was also hypophosphatemic Currently he is alert oriented responsive cooperative chest shows some rhonchi wheezing cardiovascular system heart sounds normal stable for discharge follow- up with me in 2 weeks patient is got a normal echocardiogram oxygenation was stable venous blood gases at 1 time showed a PCO2 of 73 with compensate Tory alkalosis Vital Signs/Physical Exam: Temp Pulse Resp BP Pulse Ox 97.5 F 74 16 141/72 H 98 06/03/23 04:00 06/03/23 05:32 06/03/23 04:00 06/03/23 05:32 06/03/23 04:00 Laboratory Data at Discharge: WBC 8.10 thou/uL (4.3-10.9) 06/01/23 02:20 Hgb 11.6 g/dL (13.6-17.9) L D 06/01/23 02:20 Hct 34.0 % (39.6-49.0) L 06/01/23 02:20 Plt Count 183 thou/uL (152-406) 06/01/23 02:20 PT 13.6 SECONDS (9.5-12.5) H 05/28/23 16:38 INR 1.24 05/28/23 16:38 APTT 35.5 SECONDS (24.3-36.9) 05/28/23 16:38 Sodium 131 mEq/L (136-145) L 06/03/23 06:35 Potassium 4.6 mEq/L (3.5-5.1) 06/03/23 06:35 BUN 22 mg/dL (7-18) H 06/03/23 06:35 Creatinine 0.55 mg/dL (0.70-1.30) L 06/03/23 06:35 Glucose 139 mg/dL (74-106) H 06/03/23 06:35 Uric Acid 3.4 mg/dL (3.5-7.2) L 06/02/23 02:06 Phosphorus 1.7 mg/dL (2.5-4.9) L 06/02/23 02:06 Magnesium 2.0 mg/dL (1.6-2.4) 06/01/23 02:20 Total Bilirubin 0.3 mg/dL (0.2-1.0) 06/01/23 02:20 AST < 3 U/L (15-37) L 06/01/23 02:20 ALT < 10 U/L (16-61) L 06/01/23 02:20 Alkaline Phosphatase 48 U/L (45-117) 06/01/23 02:20 Home Medications: Benazepril HCl [Lotensin*] 10 mg PO DAILY #30 tab 03/14/18 Albuterol Neb [Proventil 0.083% Neb Soln] 1 inh Q4H PRN 03/20/23 Atorvastatin Calcium [Lipitor] 40 mg PO BEDTIME 03/20/23 Rivaroxaban [Xarelto*] 1 tab PO DAILY 03/20/23 Albuterol Neb [Proventil 0.083% Neb Soln] 2.5 mg NEB [id number] #60 amp 04/16/23 Ipratropium Neb [Atrovent*] 0.5 mg NEB [id number] #60 amp 04/16/23 Carvedilol [Coreg] 25 mg PO BID 05/29/23 Fluticasone [Flonase 50MCG Nasal Emory*] 1 spr CORNELIUS DAILY 05/29/23 Fluticasone/Umeclidin/Vilanter [Trelegy Ellipta 100-62.5-25] 1 each IH DAILY 30 Days #30 aero 06/03/23 acetaZOLAMIDE [Diamox*] 250 mg PO DAILY 30 Days #30 tab 06/03/23 predniSONE [Deltasone*] 10 mg PO DAILY 10 Days #20 tab 06/03/23 New Medications: predniSONE [Deltasone*] 10 mg PO DAILY 10 Days #20 tab acetaZOLAMIDE [Diamox*] 250 mg PO DAILY 30 Days #30 tab Fluticasone/Umeclidin/Vilanter [Trelegy Ellipta 100-62.5-25] 1 each IH DAILY 30 Days #30 aero Physician Discharge Instructions: Patient presented with worsening shortness of breath. He was found to have an acute on chronic COPD exacerbation. Dr. Cedillo - pulm was consulted. Patient was given steroids, nebulizers had improvement of his symptoms. Patient was also given empiric Azithromycin to treat for possible infection. Remained afebrile without leukocytosis throughout hospitalization. No evidence of infection. No antibiotics needed on discharge. On day of discharge patient was feeling better, wanting to go home, and breathing more comfortably on oxygen supplementation (on ~3-5L [place] - wears oxygen at home) Given patients sleep apnea, CO2 levels, recommend to wear home BiPAP at night as tolerable. Discussed with patient the importance of using CPAP/BIPAP, states does not like the mask fit and feeling of suffocation at times. Patient was agreeable to try. Medications: New: Prednisone BID x7 days long-acting Bronchodilator continue other home medications as previously prescribed Follow up: PCP 3-5 days Pulmonology in 1-2 weeks Nephrology in a few weeks Diet: Regular Activity: Ad dione Followup: Dameon Cedillo MD [ACTIVE - CAN ADMIT] -
[2023-06-03 10:44] VITALS: O2SAT 99
[2023-06-03 13:04] VITALS: BP 130/61; TEMP 98
== END 2023-06-03 12:50 | disposition home health service (06) | DRG 643 ==
LOC: ER 16:23 → 2ND 22:55 → OBSVTOIN 05-29 14:23
PROVIDERS: ADMIT Internal Medicine; ATTEND Internal Medicine Sleep Medicine
PROC: 5A09357 Assistance with Respiratory Ventilation, Less than 24 Consecutive Hours, Continuous Positive Airway Pressure (ICD-10-PCS; principal; 2023-05-29)
PROC: 4A033R1 Measurement of Arterial Saturation, Peripheral, Percutaneous Approach (ICD-10-PCS; 2023-05-29)
DX: E22.2 Syndrome of inappropriate secretion of antidiuretic hormone (principal); G93.41 Metabolic encephalopathy; J96.01 Acute respiratory failure with hypoxia; J96.02 Acute respiratory failure with hypercapnia; I50.32 Chronic diastolic (congestive) heart failure; E87.3 Alkalosis; J44.1 Chronic obstructive pulmonary disease with (acute) exacerbation; I48.20 Chronic atrial fibrillation, unspecified; I11.0 Hypertensive heart disease with heart failure; L89.152 Pressure ulcer of sacral region, stage 2; E83.39 Other disorders of phosphorus metabolism; I25.2 Old myocardial infarction; F17.210 Nicotine dependence, cigarettes, uncomplicated; E78.5 Hyperlipidemia, unspecified; E88.09 Other disorders of plasma-protein metabolism, not elsewhere classified; G47.30 Sleep apnea, unspecified; E87.6 Hypokalemia; Z99.81 Dependence on supplemental oxygen; Z95.810 Presence of automatic (implantable) cardiac defibrillator; Z86.73 Personal history of transient ischemic attack (TIA), and cerebral infarction without residual deficits
CPT/HCPCS: 36415; 71045; 80048; 80053; 80076; 81001; 82533; 82805; 83735; 83880; 83930; 83935; 84100; 84300; 84443; 84484; 84550; 85025; 85610; 85730; 93005; 93306; 94660; 99285; G0378; J1100; J1630; J3486; J3535; J7030; J7050; J7512; J7613; J7626; J7644

== ENCOUNTER 2023-06-07 12:20 | Emergency (ER) | payer OTHER ==
--- OUTSIDE RECORDS SUMMARY | 2023-06-07 12:36 | XMS REPORT | Continuity of Care Document ---
:1960 Author Organization [facility] t Address [address] [place] [address] Care Team Providers Name Role Phone MILY MAY Primary Care Physician Unavailable HERMINIA OH Attending Clinician Unavailable NOMI MARY Attending Clinician Unavailable NOMI MARY Attending Clinician Unavailable Nomi Mary DO Attending Clinician Marika Monge RN Attending Clinician MARELY WATTERS Attending Clinician Unavailable MARELY WATTERS Attending Clinician Unavailable Rudy Xiao Attending Clinician Unavailable CARL ORLANDO Attending Clinician Unavailable CARL ORLANDO Attending Clinician Unavailable MILY MYA Attending Clinician Unavailable Doctor Unassigned, [place] Attending Clinician Unavailable Christa SAWYER, Mily De Leon Attending Clinician [phone] Uday ZAMORA, Taylor Mary Attending Clinician Unavailable TRAVIS ZENG Attending Clinician Unavailable Iza Protillo Attending Clinician Francisca Bryant DO Attending Clinician Travis Zeng MD Attending Clinician PRADIP DUMONT Attending Clinician Unavailable Pradip Mccarty Attending Clinician HERMINIA CHO Attending Clinician Unavailable Herminia Cho MD Attending Clinician FRANCISCA BRYANT Attending Clinician Unavailable LOUIS HONG Attending Clinician Unavailable Louis Hnog DO Attending Clinician Bessie Oswald MD Attending [...] MD Attending Clinician Jeanette Weaver Attending Clinician [facility], [facility] Lab Main Attending Clinician Unavailable Gokul Turner MD Attending Clinician GOKUL TURNER Attending Clinician Unavailable , [facility] Surg Spec Procedure Attending Clinician Unavailable JEANETTE CMDANIEL A Attending Clinician Unavailable Chris ZAMORA, Herminia [...] Policy Number Effective Date Expiration Date [facility] [id number] 2018 MEDICARE GOLD 00:00:00 HUMANA CHOICE [id number] 2022 00:00:00 Problems Condition Condition Condition Status Onset Resolution Last Treating Co mments Source Name Details Category Date Date Treatment Clinician Date 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 Chronic Fracture - not acute Fall Fall Disease Active 2013-09 Univers 2-12 ity of 00:00: [place] [address] Medical Branch Atrial Atrial Disease Active 2013-09 Univers fibrillati fibrillati 10-28 it y of on on 00:00: [place] [address] Medical Branch VT VT Disease Active 2013-09 Univers (ventricul (ventricul 10-28 it y of ar ar 00:00: [place] tachycardi tachycardi 00 Me dical a) a) Branch Allergies, Adverse Reactions, Alerts Allergy Allergy Status Severity Reaction(s) Onset Inactive Treating Comm ents Source Name Type Date Date Clinician No Known DA Active U 2019-09 [facility]01 [place] 00:[place]: [address] No Known DA Active U 2019-09 [facility] Allergie 0-01 [place] s 00:00: [address] NO KNOWN Drug Active Univers ALLERGIE Class ity of S [facility] Social History Social Habit Start Date Stop Date Quantity Comments Source Gender identity Universit y of [facility] Sexual orientation Univer sity of [facility] History of tobacco Passive smoker Un iversity of use [place] [facility] History SDOH Social Unive rsity of [facility] Med ical Together Branch History SDOH Social Unive rsity of Connections [facility] Medical Branch History SDOH Social Unive rsity of Connections [place] Medical Membership Branch History SDOH Social Unive rsity of [facility] Medical Meetings Branch History of Social 2023-03-01 2023-03-01 Univers ity of function 00:00:00 00:00:00 [facility] Branch Alcohol intake 2023-03-01 2023-03-01 Current drinker [...] University o f Physical Activity 00:00:00 00:00:00 [place] M edical DPW Branch History SDOH 2023-02-18 2023-02-18 0 University o f Physical Activity 00:00:00 00:00:00 [place] M edical MPS Branch History SDOH 2023-02-18 [...] University o f Transport Non-Med 00:00:00 00:00:00 [place] M edical Branch Exposure to 2023-02-05 2023-02-15 Not sure University of SARS-CoV-2 (event) 00:00:00 15:15:00 [place] [facility] History SDOH 2022-12-02 2022-12-02 3 University o f Alcohol Std Drinks 00:00:00 00:00:00 [place] Medical [place] History SDOH 2022-12-02 2022-12-02 1 University o f Alcohol Binge 00:00:00 00:00:00 [facility] al Branch Cigarettes smoked 2022-11-09 2022-11-09 Univers ity of current (pack per 00:00:00 00:00:00 [place] ) - Reported Branch Tobacco use and 2022-11-09 2022-11-09 User of Universit y of exposure 00:00:00 00:00:[address] [facility] tobacco Branch Education 2022-11-09 2022-11-09 13 [facility] 00:00:00 00:00:00 [facility] Alcohol Comment 2014-08-27 2014-08-27 8 drinks per day Uni versity of 00:00:00 00:00:00 [facility] Sex Ass[birth year] [facility] y of 00:00:00 00:00:00 [facility] Smoking Status Start Date Stop Date Source Smokes tobacco daily 2022-11-09 00:00:00 Univers ity of [facility] Medications Ordered Filled Start Stop [...] Wheezing or Shortness of Breath. ipratropium Yes [id number] 3mL Inhale 3 Univers -albuteroL 8-01 mL [...] [place] 00 morning. Medical Branch albuterol 3-0 Yes 2{puff} Inhale 2 U nivers 90 8-01 Puffs ity of mcg/actuati 00:00: every 4 [place] on inhaler 00 (four) Medical hours as Branch needed for Wheezing or Shortness of Breath. ipratropium 2023-0 Yes [id number] 3mL Inhale 3 Univers -albuteroL 8-01 mL [...] [place] 00 morning. Medical Branch albuterol 3-0 Yes 2{puff} Inhale 2 U nivers 90 8-01 Puffs ity of mcg/actuati 00:00: every 4 [place] on inhaler 00 (four) Medical hours as Branch needed for Wheezing or Shortness of Breath. ipratropium 2023-0 Yes [id number] 3mL Inhale 3 Univers -albuteroL 8-01 mL every 6 ity of 0.5 mg-3 00:00: (six) [place] mg(2.5 mg 00 hours as Medica l base)/3 mL needed for Bra nch nebulizer Wheezing. solution albuterol 2023-0 Yes [id number] 2.5mg Inhale 3 Univers 2.5 mg /3 6-15 mL every 4 ity of mL (0.083 00:00: (four) [place] %) 00 hours. May Medical nebulizer also Branch solution nebulize one extra every 6 hours. albuterol 3-0 Yes [id number] 2.5mg Inhale 3 Univers 2.5 mg /3 6-15 mL every 4 ity of mL (0.083 00:00: (four) [place] %) 00 hours. May Medical nebulizer also Branch solution nebulize one extra every 6 hours. albuterol 3-0 Yes [id number] 2.5mg Inhale 3 Univers 2.5 mg /3 6-15 mL every 4 ity of mL (0.083 00:00: (four) [place] %) 00 hours. May Medical nebulizer also Branch solution nebulize one extra every 6 hours. albuterol 3-0 Yes [id number] 2.5mg Inhale 3 Univers 2.5 mg /3 6-15 mL every 4 ity of mL (0.083 00:00: (four) [place] %) 00 hours. May Medical nebulizer also Branch solution nebulize one extra every 6 hours. donepeziL 5 2022-0 Yes [id number] 5mg Take 1 Univers mg tablet 6-13 tablet by ity o f 00:00: mouth in [place] the Medical morning. Branch memantine 5 2022-0 Yes [id number] 5mg Take 1 Univers mg tablet 6-13 tablet by ity o f 00:00: mouth in [place] the Medical morning. Branch donepeziL 5 2022-0 Yes [id number] 5mg Take 1 Univers mg tablet 6-13 tablet by ity o f 00:00: mouth in [place] the Medical morning. Branch memantine 5 2022-0 Yes [id number] 5mg Take 1 Univers mg tablet 6-13 tablet by ity o f 00:00: mouth in [place] 00 the Medical morning. Branch donepeziL 5 2022-0 Yes [id number] 5mg Take 1 Univers mg tablet 6-13 tablet by ity o f 00:00: mouth in [place] 00 the Medical morning. Branch memantine 5 2022-0 Yes [id number] 5mg Take 1 Univers mg tablet 6-13 tablet by ity o f 00:00: mouth in [place] 00 the Medical morning. Branch donepeziL 5 3-0 Yes [id number] 5mg Take 1 Univers mg tablet 6-13 tablet by ity o f 00:00: mouth in [place] 00 the Medical morning. Branch memantine 5 2022-0 Yes [id number] 5mg Take 1 Univers mg tablet 6-13 tablet by ity o f 00:00: mouth in [place] 00 the Medical morning. Branch donepeziL 5 3-0 Yes [id number] 5mg Take 1 Univers mg tablet 6-13 tablet by ity o f 00:00: mouth in [place] 00 the Medical morning. Branch memantine 5 2022-0 Yes [id number] 5mg Take 1 Univers mg tablet 6-13 tablet by ity o f 00:00: mouth in [place] 00 the Medical morning. Branch donepeziL 5 2022-0 Yes [id number] 5mg Take 1 Univers mg tablet 6-13 tablet by ity o f 00:00: mouth in [place] 00 the Medical morning. Branch memantine 5 2022-0 Yes [id number] 5mg Take 1 Univers mg tablet 6-13 tablet by ity o f 00:00: mouth in [place] 00 the Medical morning. Branch busPIRone 3-0 Yes 10mg Take 1 Univer s 10 mg 6-02 tablet by ity of tablet 16:15: mouth in [place] [address] the Medical morning Branch and 1 tablet in the evening. rivaroxaban 2023-0 Yes 15mg Take 1 Univ ers 15 mg 6-02 tablet by ity of tablet 16:15: mouth in [place] [address] the Medical morning. Branch ASPIRIN 2023-0 Yes 81mg Take 81 mg Univ ers ORAL 6-02 by mouth ity of 16:15: in the [place] [address] morning. Medical tablet Branch busPIRone 3-0 Yes 10mg Take 1 Univer s 10 mg 6-02 tablet by ity of tablet 16:15: mouth in [place] [address] the Medical morning Branch and 1 tablet in the evening. rivaroxaban 2023-0 Yes 15mg Take 1 Univ ers 15 mg 6-02 tablet by ity of tablet 16:15: mouth in [place] [address] the Medical morning. Branch ASPIRIN 2023-0 Yes 81mg Take 81 mg Univ ers ORAL 6-02 by mouth ity of 16:15: in the [place] [address] morning. Medical tablet Branch busPIRone 2023-0 Yes 10mg Take 1 Univer s 10 mg 6-02 tablet by ity of tablet 16:15: mouth in [place] [address] the Medical morning Branch and 1 tablet in the evening. rivaroxaban 2023-0 Yes 15mg Take 1 Univ ers 15 mg 6-02 tablet by ity of tablet 16:15: mouth in [place] [address] the Medical morning. Branch ASPIRIN 2023-0 Yes 81mg Take 81 mg Univ ers ORAL 6-02 by mouth ity of 16:15: in the [place] [address] morning. Medical tablet Branch busPIRone 2023-0 Yes 10mg Take 1 Univer s 10 mg 6-02 tablet by ity of tablet 16:15: mouth in [place] [address] the Medical morning Branch and 1 tablet in the evening. rivaroxaban 2023-0 Yes 15mg Take 1 Univ ers 15 mg 6-02 tablet by ity of tablet 16:15: mouth in [place] [address] the Medical morning. Branch ASPIRIN 2023-0 Yes 81mg Take 81 mg Univ ers ORAL 6-02 by mouth ity of 16:15: in the [place] [address] morning. Medical tablet Branch busPIRone 2023-0 Yes 10mg Take 1 Univer s 10 mg 6-02 tablet by ity of tablet 16:15: mouth in [place] [address] the Medical morning Branch and 1 tablet in the evening. rivaroxaban 2023-0 Yes 15mg Take 1 Univ ers 15 mg 6-02 tablet by ity of tablet 16:15: mouth in [place] [address] the Medical morning. Branch ASPIRIN 2023-0 Yes 81mg Take 81 mg Univ ers ORAL 6-02 by mouth ity of 16:15: in the [place] [address] morning. Medical tablet Branch busPIRone 2023-0 Yes 10mg Take 1 Univer s 10 mg 6-02 tablet by ity of tablet 16:15: mouth in [place] [address] the Medical morning Branch and 1 tablet in the evening. rivaroxaban 2023-0 Yes 15mg Take 1 Univ ers 15 mg 6-02 tablet by ity of tablet 16:15: mouth in [place] [address] the Medical morning. Branch ASPIRIN 2023-0 Yes 81mg Take 81 mg Univ ers ORAL 6-02 by mouth ity of 16:15: in the [place] [address] morning. Medical tablet Branch busPIRone 2023-0 Yes 10mg Take 1 Univer s 10 mg 6-02 tablet by ity of tablet 16:15: mouth in [place] [address] the Medical morning Branch and 1 tablet in the evening. rivaroxaban 2023-0 Yes 15mg Take 1 Univ ers 15 mg 6-02 tablet by ity of tablet 16:15: mouth in [place] [address] the Medical morning. Branch ASPIRIN 2023-0 Yes 81mg Take 81 mg Univ ers ORAL 6-02 by mouth ity of 16:15: in the [place] [address] morning. Medical tablet Branch busPIRone 2023-0 Yes 10mg Take 1 Univer s 10 mg 6-02 tablet by ity of tablet 16:15: mouth in [place] [address] the Medical morning Branch and 1 tablet in the evening. rivaroxaban 2023-0 Yes 15mg Take 1 Univ ers 15 mg 6-02 tablet by ity of tablet 16:15: mouth in [place] [address] the Medical morning. Branch ASPIRIN 2023-0 Yes 81mg Take 81 mg Univ ers ORAL 6-02 by mouth ity of 16:15: in the [place] [address] morning. Medical tablet Branch busPIRone 2023-0 Yes 10mg Take 1 Univer s 10 mg 6-02 tablet by ity of tablet 16:15: mouth in [place] [address] the Medical morning Branch and 1 tablet in the evening. rivaroxaban 2023-0 Yes 15mg Take 1 Univ ers 15 mg 6-02 tablet by ity of tablet 16:15: mouth in [place] [address] the Medical morning. Branch ASPIRIN 2023-0 Yes 81mg Take 81 mg Univ ers ORAL 6-02 by mouth ity of 16:15: in the [place] [address] morning. Medical tablet Branch busPIRone 2023-0 Yes 10mg Take 1 Univer s 10 mg 6-02 tablet by ity of tablet 16:15: mouth in [place] [address] the Medical morning Branch and 1 tablet in the evening. rivaroxaban 2023-0 Yes 15mg Take 1 Univ ers 15 mg 6-02 tablet by ity of tablet 16:15: mouth in [place] [address] the Medical morning. Branch ASPIRIN 2023-0 Yes 81mg Take 81 mg Univ ers ORAL 6-02 by mouth ity of 16:15: in the [place] [address] morning. Medical tablet Branch predniSONE 2023-0 2023- No [id number] 40mg Take 2 Univers 20 mg 6-02 06-06 tablets by ity of tablet 00:00: 04:59 mouth in [place] 00 :00 the Medical morning Branch for 3 days. predniSONE 2022-0 2022- No [id number] 40mg Take 2 Univers 20 mg 6-10 25-06 tablets by ity of tablet 00:00: 04:59 mouth in [place] 00 :00 the Medical morning Branch for 3 days. predniSONE 2022-0 2022- No [id number] 40mg Take 2 Univers 20 mg 6- 06-06 tablets by ity of tablet 00:00: 04:59 mouth in [place] 00 :00 the Medical morning Branch for 3 days. midodrine 5 2022-0 Yes [id number] 5mg Take 1 Univers mg tablet 6-01 tablet by ity o f 00:00: mouth [place] 00 every 8 Medical (eight) Branch hours as needed (Hypotensi on SBP <95 or DBP <50). midodrine 5 2022-0 Yes [id number] 5mg Take 1 Univers mg tablet 6-01 tablet by ity o f 00:00: mouth [place] 00 every 8 Medical (eight) Branch hours as needed (Hypotensi on SBP <95 or DBP <50). midodrine 5 0 Yes [id number] 5mg Take 1 Univers mg tablet 6-01 tablet by ity o f 00:00: mouth [place] 00 every 8 Medical (eight) Branch hours as needed (Hypotensi on SBP <95 or DBP <50). midodrine 5 2022-0 Yes [id number] 5mg Take 1 Univers mg tablet 6-01 tablet by ity o f 00:00: mouth [place] 00 every 8 Medical (eight) Branch hours as needed (Hypotensi on SBP <95 or DBP <50). midodrine 5 0 Yes [id number] 5mg Take 1 Univers mg tablet 6-01 tablet by ity o f 00:00: mouth [place] 00 every 8 Medical (eight) Branch hours as needed (Hypotensi on SBP <95 or DBP <50). midodrine 5 2022-0 Yes [id number] 5mg Take 1 Univers mg tablet 6-01 tablet by ity o f 00:00: mouth [place] 00 every 8 Medical (eight) Branch hours as needed (Hypotensi on SBP <95 or DBP <50). midodrine 5 2022-0 Yes [id number] 5mg Take 1 Univers mg tablet 6-01 tablet by ity o f 00:00: mouth [place] 00 every 8 Medical (eight) Branch hours as needed (Hypotensi on SBP <95 or DBP <50). midodrine 5 2022-0 Yes [id number] 5mg Take 1 Univers mg tablet 6-01 tablet by ity o f 00:00: mouth [place] 00 every 8 Medical (eight) Branch hours as needed (Hypotensi on SBP <95 or DBP <50). midodrine 5 2022-0 Yes [id number] 5mg Take 1 Univers mg tablet 6-01 tablet by ity o f 00:00: mouth [place] 00 every 8 Medical (eight) Branch hours as needed (Hypotensi on SBP <95 or DBP <50). midodrine 5 2022-0 Yes [id number] 5mg Take 1 Univers mg tablet 6-01 [...] 02/16/23 at 0900, Until Discontinu ed, Routine
cafe team member approving Restricted medication : DEDRICK [...] on Tue02/20/23 at 0900, Routine sulfur No [id number] 5mL 5 mL, Unive rs hexafluorid 02-16 Intravenou i ty of e microsphr 14:00: 14:00 s, ONCE, 1 [place] (LUMASON) 00 :00 dose, On Medica l injection Tue mL 02/16/23 at 0900, Routine
cafe team member approving Restricted medication : STEFFANIE [...] 26 Starting Medica l tablet 1 on [facility] tablet 02/15/23 at 1951, Until Discontinu ed, Routine, Pain (scale 7-10) traMADoL 0 2022- No 50mg 50 mg, Univer s (ULTRAM) 02-16-02 Oral, ity of tablet 50 00:52: 00:51 Q8HPRN, [place] mg 22 :22 Starting Medical on [facility] 02/15/23 at 1951, Until [place] 02/17/23 at 1950, Routine, Pain (scale 4-6) acetaminoph Yes 650mg 650 mg, Un igor en 02-16 Oral, ity of (TYLENOL) 00:52: Q6HPRN, [place] tablet 650 16 Starting Medic al mg on [facility] 02/15/23 at 1951, Until Discontinu ed, Routine, Pain (scale 1-3) NaCl 0.9% 2022- No 1000mL at 999 Uni vers (NS) bolus 5-30 05-30 mL/hr, ity of infusion 22:15: 22:51 1,000 mL, [place] 1,000 mL 00 :00 IV Medical Infusion, Branch ONCE, 1 dose, On [facility] 02/15/23 at 1715, MICHAEL NaCl 0.9% 0 2022- No 1000mL at 999 Uni vers (NS) bolus 5-30 05-30 mL/hr, ity of infusion 21:30: 22:43 1,000 mL, [place] 1,000 mL 00 :00 IV Medical Infusion, Branch ONCE, 1 dose, On [facility] 02/15/23 at 1630, MICHAEL NaCl [...] mg 02/04/23 at 1615, MICHAEL albuterol Yes [id number] 2{puff} Inhale 2 Univers 90 -19 Puffs ity of mcg/actuati 00:00: every 4 [place] on inhaler 00 (four) Medical hours as Branch needed for Wheezing or Shortness of Breath. albuterol Yes [id number] 2{puff} Inhale 2 Univers 90 5-19 Puffs ity of mcg/actuati 00:00: every 4 [place] on inhaler 00 (four) Medical hours as Branch needed for Wheezing or Shortness of Breath. albuterol Yes [id number] 2{puff} Inhale 2 Univers 90 5-19 Puffs ity of mcg/actuati 00:00: every 4 [place] on inhaler 00 (four) Medical hours as Branch needed for Wheezing or Shortness of Breath. albuterol Yes [id number] 2{puff} Inhale 2 Univers 90 5-19 Puffs ity of mcg/actuati 00:00: every 4 [place] on inhaler 00 (four) Medical hours as Branch needed for Wheezing or Shortness of Breath. albuterol Yes [id number] 2{puff} Inhale 2 Univers 90 5-19 Puffs ity of mcg/actuati 00:00: every 4 [place] on inhaler 00 (four) Medical hours as Branch needed for Wheezing or Shortness of Breath. albuterol Yes [id number] 2{puff} Inhale 2 Univers 90 5-19 Puffs ity of mcg/actuati 00:00: every 4 [place] on inhaler 00 (four) Medical hours as Branch needed for Wheezing or Shortness of Breath. albuterol Yes [id number] 2{puff} Inhale 2 Univers 90 5-19 Puffs ity of mcg/actuati 00:00: every 4 [place] on inhaler 00 (four) Medical hours as Branch needed for Wheezing or Shortness of Breath. albuterol Yes [id number] 2{puff} Inhale 2 Univers 90 5-19 Puffs ity of mcg/actuati 00:00: every 4 [place] on inhaler 00 (four) Medical hours as Branch needed for Wheezing or Shortness of Breath. albuterol Yes [id number] 2{puff} Inhale 2 Univers 90 5-19 Puffs ity of mcg/actuati 00:00: every 4 [place] on inhaler 00 (four) Medical hours as Branch needed for Wheezing or Shortness of Breath. albuterol 2023-0 Yes [id number] 2{puff} Inhale 2 Univers 90 5-19 Puffs ity of mcg/actuati 00:00: every 4 [place] on inhaler 00 (four) Medical hours as Branch needed for Wheezing or Shortness of Breath. albuterol 2022-0 2022- No [id number] 2{puff} Inhale 2 Univers 90 5-19 08-01 Puffs ity of mcg/actuati 00:00: 00:00 every 4 [place] on inhaler 00 :00 (four) Medical hours as Branch needed for Wheezing or Shortness of Breath. albuterol 2022-0 2022- No [id number] 2{puff} Inhale 2 Univers 90 5-19 08-01 [...] solution 3 Routine mL tiotropium 2022-0 Yes [id number] 18ug Inhale 1 Univers 18 mcg 5-15 capsule in ity of inhalation 00:00: the [place] 00 morning. Medical Branch fluticasone 3-0 Yes [id number] 1{puff} Inhale 1 Univers propion-bella 5-15 Puff in ity o f meteroL 00:00: the [place] (ADVAIR 00 morning Medical DISKUS) and 1 Puff Branch 250-50 in the mcg/dose evening. inhalation disk montelukast 3-0 Yes [id number] 10mg Take 1 Univers 10 mg 5-15 tablet by ity of tablet 00:00: mouth in [place] 00 the morning. Branch tiotropium 2022-0 Yes [id number] 18ug Inhale 1 Univers 18 mcg 5-15 capsule in ity of inhalation 00:00: the [place] 00 morning. Medical Branch fluticasone 2022-0 Yes [id number] 1{puff} Inhale 1 Univers propion-bella 5-15 Puff in ity o f meteroL 00:00: the [place] (ADVAIR 00 morning Medical DISKUS) and 1 Puff Branch 250-50 in the mcg/dose evening. inhalation disk montelukast 2022-0 Yes [id number] 10mg Take 1 Univers 10 mg 5-15 tablet by ity of tablet 00:00: mouth in [place] 00 the morning. Branch tiotropium 2022-0 Yes [id number] 18ug Inhale 1 Univers 18 mcg 5-15 capsule in ity of inhalation 00:00: the [place] 00 morning. Medical Branch fluticasone 2022-0 Yes [id number] 1{puff} Inhale 1 Univers propion-bella 5-15 Puff in ity o f meteroL 00:00: the [place] (ADVAIR 00 morning Medical DISKUS) and 1 Puff Branch 250-50 in the mcg/dose evening. inhalation disk montelukast 3-0 Yes [id number] 10mg Take 1 Univers 10 mg 5-15 tablet by ity of tablet 00:00: mouth in [place] 00 the morning. Branch tiotropium 2022-0 Yes [id number] 18ug Inhale 1 Univers 18 mcg 5-15 capsule in ity of inhalation 00:00: the [place] 00 morning. Medical Branch fluticasone 2022-0 Yes [id number] 1{puff} Inhale 1 Univers propion-bella 5-15 Puff in ity o f meteroL 00:00: the [place] (ADVAIR 00 morning Medical DISKUS) and 1 Puff Branch 250-50 in the mcg/dose evening. inhalation disk montelukast 2023-0 Yes [id number] 10mg Take 1 Univers 10 mg 5-15 tablet by ity of tablet 00:00: mouth in [place] 00 the Medical morning. Branch tiotropium 2023-0 Yes [id number] 18ug Inhale 1 Univers 18 mcg 5-15 capsule in ity of inhalation 00:00: the [place] 00 morning. Medical Branch fluticasone 2023-0 Yes [id number] 1{puff} Inhale 1 Univers propion-bella 5-15 Puff in ity o f meteroL 00:00: the [place] (ADVAIR 00 morning Medical DISKUS) and 1 Puff Branch 250-50 in the mcg/dose evening. inhalation disk montelukast 3-0 Yes [id number] 10mg Take 1 Univers 10 mg 5-15 tablet by ity of tablet 00:00: mouth in [place] 00 the Medical morning. Branch tiotropium 3-0 Yes [id number] 18ug Inhale 1 Univers 18 mcg 5-15 capsule in ity of inhalation 00:00: the [place] 00 morning. Medical Branch fluticasone 3-0 Yes [id number] 1{puff} Inhale 1 Univers propion-bella 5-15 Puff in ity o f meteroL 00:00: the [place] (ADVAIR 00 morning Medical DISKUS) and 1 Puff Branch 250-50 in the mcg/dose evening. inhalation disk montelukast 3-0 Yes [id number] 10mg Take 1 Univers 10 mg 5-15 tablet by ity of tablet 00:00: mouth in [place] 00 the Medical morning. Branch tiotropium 3-0 Yes [id number] 18ug Inhale 1 Univers 18 mcg 5-15 capsule in ity of inhalation 00:00: the [place] 00 morning. Medical Branch fluticasone 2023-0 Yes [id number] 1{puff} Inhale 1 Univers propion-bella 5-15 Puff in ity o f meteroL 00:00: the [place] (ADVAIR 00 morning Medical DISKUS) and 1 Puff Branch 250-50 in the mcg/dose evening. inhalation disk montelukast 2023-0 Yes [id number] 10mg Take 1 Univers 10 mg 5-15 tablet by ity of tablet 00:00: mouth in [place] 00 the Medical morning. Branch tiotropium 2022-0 Yes [id number] 18ug Inhale 1 Univers 18 mcg 5-15 capsule in ity of inhalation 00:00: the [place] 00 morning. Medical Branch fluticasone 2022-0 Yes [id number] 1{puff} Inhale 1 Univers propion-bella 5-15 Puff in ity o f meteroL 00:00: the [place] (ADVAIR 00 morning Medical DISKUS) and 1 Puff Branch 250-50 in the mcg/dose evening. inhalation disk montelukast 2022-0 Yes [id number] 10mg Take 1 Univers 10 mg 5-15 tablet by ity of tablet 00:00: mouth in [place] 00 the Medical morning. Branch tiotropium 2022-0 Yes [id number] 18ug Inhale 1 Univers 18 mcg 5-15 capsule in ity of inhalation 00:00: the [place] 00 morning. Medical Branch fluticasone 2022-0 Yes [id number] 1{puff} Inhale 1 Univers propion-bella 5-15 Puff in ity o f meteroL 00:00: the [place] (ADVAIR 00 morning Medical DISKUS) and 1 Puff Branch 250-50 in the mcg/dose evening. inhalation disk montelukast 2022-0 Yes [id number] 10mg Take 1 Univers 10 mg 5-15 tablet by ity of tablet 00:00: mouth in [place] 00 the Medical morning. Branch tiotropium 2022-0 Yes [id number] 18ug Inhale 1 Univers 18 mcg 5-15 capsule in ity of inhalation 00:00: the [place] 00 morning. Medical Branch montelukast 2022-0 Yes [id number] 10mg Take 1 [facility] 10 mg 5-15 tablet by ity of tablet 00:00: mouth in [place] 00 the Medical morning. Branch montelukast 3-0 Yes [id number] 10mg Take 1 [facility] 10 mg 5-15 tablet by ity of tablet 00:00: mouth in [place] 00 the Medical morning. Branch montelukast 3-0 Yes [id number] 10mg Take 1 [facility] 10 mg 5-15 tablet by ity of tablet 00:00: mouth in [place] 00 the Medical morning. Branch albuterol 0 Yes [id number] 2{puff} Inhale 2 [facility] 90 5-15 Puffs ity of mcg/actuati 00:00: every 4 [place] as on inhaler 00 (four) Medical hours as Branch needed for Wheezing, Shortness of Breath or Bronchospa sm. fluticasone 2022-0 Yes [id number] 1{puff} Inhale 1 [facility] propion-bella 5-15 Puff in ity o f meteroL 00:00: the [place] (ADVAIR 00 morning Medical DISKUS) and 1 Puff Branch 250-50 in the mcg/dose evening. inhalation disk montelukast 2022-0 Yes [id number] 10mg Take 1 [facility] 10 mg 5-15 tablet by ity of tablet 00:00: mouth in [place] the Medical morning. Branch tiotropium 2022-0 Yes [id number] 18ug Inhale 1 [facility] 18 mcg 5-15 capsule in ity of inhalation 00:00: the [place] 00 morning. Medical Branch albuterol 2022-0 Yes [id number] 2{puff} Inhale 2 [facility] 90 5-15 Puffs ity of mcg/actuati 00:00: every 4 [place] as on inhaler 00 (four) Medical hours as Branch needed for Wheezing, Shortness of Breath or Bronchospa sm. fluticasone 2022-0 Yes [id number] 1{puff} Inhale 1 [facility] propion-bella 5-15 Puff in ity o f meteroL 00:00: the [place] (ADVAIR 00 morning Medical DISKUS) and 1 Puff Branch 250-50 in the mcg/dose evening. inhalation disk montelukast 2022-0 Yes [id number] 10mg Take 1 [facility] 10 mg 5-15 tablet by ity of tablet 00:00: mouth in [place] 00 the Medical morning. Branch tiotropium 2022-0 Yes [id number] 18ug Inhale 1 [facility] 18 mcg 5-15 capsule in ity of inhalation 00:00: the [place] 00 morning. Medical Branch albuterol 2022-0 Yes [id number] 2{puff} Inhale 2 [facility] 90 5-15 Puffs ity of mcg/actuati 00:00: every 4 [place] as on inhaler 00 (four) Medical hours as Branch needed for Wheezing, Shortness of Breath or Bronchospa sm. fluticasone 0 Yes [id number] 1{puff} Inhale 1 [facility] propion-bella 5-15 Puff in ity o f meteroL 00:00: the [place] (ADVAIR 00 morning Medical DISKUS) and 1 Puff Branch 250-50 in the mcg/dose evening. inhalation disk montelukast 2022-0 Yes [id number] 10mg Take 1 [facility] 10 mg 5-15 tablet by ity of tablet 00:00: mouth in [place] 00 the Medical morning. Branch tiotropium 0 Yes [id number] 18ug Inhale 1 [facility] 18 mcg 5-15 capsule in ity of inhalation 00:00: the [place] 00 morning. Medical Branch albuterol 0 Yes [id number] 2{puff} Inhale 2 [facility] 90 5-15 Puffs ity of mcg/actuati 00:00: every 4 [place] as on inhaler 00 (four) Medical hours as Branch needed for Wheezing, Shortness of Breath or Bronchospa sm. fluticasone 2022-0 Yes [id number] 1{puff} Inhale 1 [facility] propion-bella 5-15 Puff in ity o f meteroL 00:00: the [place] (ADVAIR 00 morning Medical DISKUS) and 1 Puff Branch 250-50 in the mcg/dose evening. inhalation disk montelukast 2022-0 Yes [id number] 10mg Take 1 [facility] 10 mg 5-15 tablet by ity of tablet 00:00: mouth in [place] 00 the morning. Branch tiotropium 2022-0 Yes [id number] 18ug Inhale 1 [facility] 18 mcg 5-15 capsule in ity of inhalation 00:00: the [place] 00 morning. Medical Branch fluticasone 2022-0 Yes [id number] 1{puff} Inhale 1 [facility] propion-bella 5-15 Puff in ity o f meteroL 00:00: the [place] (ADVAIR 00 morning Medical DISKUS) and 1 Puff Branch 250-50 in the mcg/dose evening. inhalation disk montelukast 2022-0 Yes [id number] 10mg Take 1 [facility] 10 mg 5-15 tablet by ity of tablet 00:00: mouth in [place] 00 the morning. Branch fluticasone 2022-0 2022- No [id number] 1{puff} Inhale 1 [facility] propion-bella 5-15 08-01 Puff in ity of meteroL 00:00: 00:00 [facility] (ADVAIR 00 :00 morning Medical DISKUS) and 1 Puff Branch 250-50 in the mcg/dose evening. inhalation disk tiotropium 2022-0 3- No [id number] 18ug Inhale 1 [facility] 18 mcg 5-15 08-01 capsule in ity of inhalation 00:00: 00:00 [facility] 00 :00 morning. Medical Branch fluticasone 2022-0 2022- No [id number] 1{puff} Inhale 1 [facility] propion-bella 5-15 08-01 Puff in ity of meteroL 00:00: 00:00 [facility] (ADVAIR 00 :00 morning Medical DISKUS) and 1 Puff Branch 250-50 in the mcg/dose evening. inhalation disk tiotropium 2022-0 2022- No [id number] 18ug Inhale 1 [facility] 18 mcg 5-15 08-01 capsule in ity of inhalation 00:00: 00:00 [facility] 00 :00 morning. Medical Branch albuterol 2022-0 2022- No [id number] 2{puff} Inhale 2 [facility] 90 5-15 05-19 [...] First dose Medic al mg(2.5 mg on [facility] base)/3 mL 01/27/23 at nebulizer 0800, solution 3 Until mL Discontinu ed, Routine ipratropium 2022- No 3mL 3 mL, Univ ers -albuteroL 01-24- Inhalation it y of (DUONEB) 18:00: 18:15 , ONCE, 1 [place] as 0.5 mg-3 00 :00 dose, On Medical mg(2.5 mg 01/24/23 [facility] base)/3 mL at 1300, nebulizer MICHAEL solution 3 mL furosemide 2022- No 40mg 40 mg, IV U nivers (LASIX) 01-24- Push, ity of injection 18:00: 18:42 ONCE, 1 [place] 40 mg 00 :00 dose, On Medical [facility] 01/24/23 Branch at 1300, MICHAEL aspirin 2022-0 2022- No 325mg 325 mg, Unive rs tablet 325 01-2408 Oral, ity of mg 18:00: 18:44 ONCE, 1 [place] 00 :00 dose, On Medical [facility] 01/24/23 Branch at 1300, STAT busPIRone 2022-0 Yes 10mg Take 1 Univer s 10 mg 5-08 tablet by ity of tablet 15:48: mouth in [place] [address] the Medical morning Branch and 1 tablet in the evening. rivaroxaban 2022-0 Yes 15mg Take 1 Univ ers 15 mg 5-08 tablet by ity of tablet 15:48: mouth in [place] [address] the Medical morning. Branch ASPIRIN 3-0 Yes 81mg Take 81 mg Univ ers ORAL 5-08 by mouth ity of 15:48: in the [place] [address] morning. Medical tablet Branch busPIRone 3-0 Yes 10mg Take 1 Univer s 10 mg 5-08 tablet by ity of tablet 15:48: mouth in [place] [address] the Medical morning Branch and 1 tablet in the evening. rivaroxaban 3-0 Yes 15mg Take 1 Univ ers 15 mg 5-08 tablet by ity of tablet 15:48: mouth in [place] [address] the Medical morning. Branch ASPIRIN 2023-0 Yes 81mg Take 81 mg Univ ers ORAL 5-08 by mouth ity of 15:48: in the [place] [address] morning. Medical tablet Branch busPIRone 2023-0 Yes 10mg Take 1 [facility]iver s 10 mg 5-08 tablet by ity of tablet 15:48: mouth in [place] [address] the Medical morning Branch and 1 tablet in the evening. rivaroxaban 2023-0 Yes 15mg Take 1 Univ ers 15 mg 5-08 tablet by ity of tablet 15:48: mouth in [place] [address] the Medical morning. Branch ASPIRIN 2023-0 Yes 81mg Take 81 mg Univ ers ORAL 5-08 by mouth ity of 15:48: in the [place] [address] morning. Medical tablet Branch busPIRone 2023-0 Yes 10mg Take 1 Univer s 10 mg 5-08 tablet by ity of tablet 15:48: mouth in [place] [address] the Medical morning Branch and 1 tablet in the evening. rivaroxaban 2023-0 Yes 15mg Take 1 Univ ers 15 mg 5-08 tablet by ity of tablet 15:48: mouth in [place] [address] the Medical morning. Branch ASPIRIN 2023-0 Yes 81mg Take 81 mg Univ ers ORAL 5-08 by mouth ity of 15:48: in the [place] [address] morning. Medical tablet Branch busPIRone 2023-0 Yes 10mg Take 1 Univer s 10 mg 5-08 tablet by ity of tablet 15:48: mouth in [place] [address] the Medical morning Branch and 1 tablet in the evening. rivaroxaban 2023-0 Yes 15mg Take 1 Univ ers 15 mg 5-08 tablet by ity of tablet 15:48: mouth in [place] [address] the Medical morning. Branch ASPIRIN 2023-0 Yes 81mg Take 81 mg Univ ers ORAL 5-08 by mouth ity of 15:48: in the [place] [address] morning. Medical tablet Branch busPIRone 2023-0 Yes 10mg Take 1 Univer s 10 mg 5-08 tablet by ity of tablet 15:48: mouth in [place] [address] the Medical morning Branch and 1 tablet in the evening. rivaroxaban 2023-0 Yes 15mg Take 1 Univ ers 15 mg 5-08 tablet by ity of tablet 15:48: mouth in [place] [address] the Medical morning. Branch ASPIRIN 2023-0 Yes 81mg Take 81 mg Univ ers ORAL 5-08 by mouth ity of 15:48: in the [place] [address] morning. Medical tablet Branch busPIRone 2023-0 Yes 10mg Take 1 Univer s 10 mg 5-08 tablet by ity of tablet 15:48: mouth in [place] [address] the Medical morning Branch and 1 tablet in the evening. rivaroxaban 2023-0 Yes 15mg Take 1 Univ ers 15 mg 5-08 tablet by ity of tablet 15:48: mouth in [place] [address] the Medical morning. Branch ASPIRIN 2023-0 Yes 81mg Take 81 mg Univ ers ORAL 5-08 by mouth ity of 15:48: in the [place] [address] morning. Medical tablet Branch busPIRone 2023-0 Yes 10mg Take 1 Univer s 10 mg 5-08 tablet by ity of tablet 15:48: mouth in [place] [address] the Medical morning Branch and 1 tablet in the evening. rivaroxaban 2023-0 Yes 15mg Take 1 Univ ers 15 mg 5-08 tablet by ity of tablet 15:48: mouth in [place] [address] the Medical morning. Branch ASPIRIN 2023-0 Yes 81mg Take 81 mg Univ ers ORAL 5-08 by mouth ity of 15:48: in the [place] [address] morning. Medical tablet Branch busPIRone 2023-0 Yes 10mg Take 1 Univer s 10 mg 5-08 tablet by ity of tablet 15:48: mouth in [place] [address] the Medical morning Branch and 1 tablet in the evening. rivaroxaban 2023-0 Yes 15mg Take 1 Univ ers 15 mg 5-08 tablet by ity of tablet 15:48: mouth in [place] [address] the Medical morning. Branch ASPIRIN 2023-0 Yes 81mg Take 81 mg Univ ers ORAL 5-08 by mouth ity of 15:48: in the [place] [address] morning. Medical tablet Branch busPIRone 2023-0 Yes 10mg Take 1 Univer s 10 mg 5-08 tablet by ity of tablet 15:48: mouth in [place] [address] the Medical morning Branch and 1 tablet in the evening. rivaroxaban 2023-0 Yes 15mg Take 1 Univ ers 15 mg 5-08 tablet by ity of tablet 15:48: mouth in [place] [address] the Medical morning. Branch ASPIRIN 2023-0 Yes 81mg Take 81 mg Univ ers ORAL 5-08 by mouth ity of 15:48: in the [place] [address] morning. Medical tablet Branch busPIRone 2023-0 Yes 10mg Take 1 Univer s 10 mg 5-08 tablet by ity of tablet 15:48: mouth in [place] [address] the Medical morning Branch and 1 tablet in the evening. rivaroxaban 3-0 Yes 15mg Take 1 Univ ers 15 mg 5-08 tablet by ity of tablet 15:48: mouth in [place] [address] the Medical morning. Branch ASPIRIN 3-0 Yes 81mg Take 81 mg Univ ers ORAL 5-08 by mouth ity of 15:48: in the [place] [address] morning. Medical tablet Branch busPIRone 3-0 Yes 10mg Take 1 Univer s 10 mg 5-08 tablet by ity of tablet 15:48: mouth in [place] [address] the Medical morning Branch and 1 tablet in the evening. rivaroxaban 2022-0 Yes 15mg Take 1 Univ ers 15 mg 5-08 tablet by ity of tablet 15:48: mouth in [place] [address] the Medical morning. Branch ASPIRIN 2022-0 Yes 81mg Take 81 mg Univ ers ORAL 5-08 by mouth ity of 15:48: in the [place] [address] morning. Medical tablet Branch busPIRone 2022-0 Yes 10mg Take 1 Univer s 10 mg 5-08 tablet by ity of tablet 15:48: mouth in [place] [address] the Medical morning Branch and 1 tablet in the evening. rivaroxaban 2022-0 Yes 15mg Take 1 Univ ers 15 mg 5-08 tablet by ity of tablet 15:48: mouth in [place] [address] the Medical morning. Branch ASPIRIN 2022-0 Yes 81mg Take 81 mg Univ ers ORAL 5-08 by mouth ity of 15:48: in the [place] [address] morning. Medical tablet Branch levalbutero 2022-0 2022- [...] at 1445, STAT predniSONE 2022-0 2022- No [id number] 40mg Take 2 [facility] 20 mg 5-04 05-09 tablets by ity of tablet 00:00: 04:59 mouth in [place] 00 :00 the Medical morning Branch for 4 days. predniSONE 2022-0 2022- No [id number] 40mg Take 2 [facility] 20 mg 5-04 05-09 tablets by ity of tablet 00:00: 04:59 mouth in [place] 00 :00 the Medical morning [place] for 4 days. predniSONE 2022-0 2022- No [id number] 40mg Take 2 [facility] 20 mg 5-04 05-09 tablets by ity of tablet 00:00: 04:59 mouth in [place] 00 :00 the [facility] morning [place] for 4 days. predniSONE 2022-0 202- No [id number] 40mg Take 2 [facility] 20 mg 5-04 05-09 tablets by ity of tablet 00:00: 04:59 mouth in [place] 00 :00 the Medical morning [place] for 4 days. predniSONE 2022-0 202- No [id number] 40mg Take 2 [facility] 20 mg 5-04 05-09 tablets by ity of tablet 00:00: 04:59 mouth in [place] 00 :00 the [facility] morning [place] for 4 days. predniSONE 2022-0 2022- No [id number] 40mg Take 2 [facility] 20 mg 5-04 05-09 tablets by ity of tablet 00:00: 04:59 mouth in [place] 00 :00 the [facility] morning [place] for 4 days. predniSONE 2022-0 2022- No [id number] 40mg Take 2 [facility] 20 mg 5-04 05-09 tablets by ity of tablet 00:00: 04:59 mouth in [place] 00 :00 the [facility] morning [place] for 4 days. enoxaparin 0 Yes 40mg 40 mg, Unive rs (LOVENOX) 01-19 Subcutaneo ity of injection 22:00: [place], DAILY, [place] 40 mg 00 First dose Medical on Tue01/19/23 at 1700, Until Discontinu ed, Routine levalbutero 0 Yes 1.25mg 1.25 mg, Univers l (XOPENEX) 01-19 Inhalation it y of nebulizer 21:00: , QID, [place] solution 00 First dose Medic [...] of tablet 19:49: mouth in [place] [address] the Medical morning Branch and 1 tablet in the evening. rivaroxaban 2023-0 Yes 15mg Take 1 Univ ers 15 mg 5-03 tablet by ity of tablet 19:49: mouth in [place] [address] the Medical morning. Branch ASPIRIN 2023-0 Yes 81mg Take 81 mg Univ ers ORAL 5-03 by mouth ity of 19:49: in the [place] [address] morning. Medical tablet Branch busPIRone 2023-0 Yes 10mg Take 1 Univer s 10 mg 5-03 tablet by ity of tablet 19:49: mouth in [place] [address] the Medical morning Branch and 1 tablet in the evening. rivaroxaban 2023-0 Yes 15mg Take 1 Univ ers 15 mg 5-03 tablet by ity of tablet 19:49: mouth in [place] [address] the Medical morning. Branch ASPIRIN 2023-0 Yes 81mg Take 81 mg Univ ers ORAL 5-03 by mouth ity of 19:49: in the [place] [address] morning. Medical tablet Branch busPIRone 2023-0 Yes 10mg Take 1 Univer s 10 mg 5-03 tablet by ity of tablet 19:49: mouth in [place] [address] the Medical morning Branch and 1 tablet in the evening. rivaroxaban 2023-0 Yes 15mg Take 1 Univ ers 15 mg 5-03 tablet by ity of tablet 19:49: mouth in [place] [address] the Medical morning. Branch ASPIRIN 2023-0 Yes 81mg Take 81 mg Univ ers ORAL 5-03 by mouth ity of 19:49: in the [place] [address] morning. Medical tablet Branch busPIRone 2023-0 Yes 10mg Take 1 Univer s 10 mg 5-03 tablet by ity of tablet 19:49: mouth in [place] [address] the Medical morning Branch and 1 tablet in the evening. rivaroxaban 2023-0 Yes 15mg Take 1 Univ ers 15 mg 5-03 tablet by ity of tablet 19:49: mouth in [place] [address] the Medical morning. Branch ASPIRIN 2023-0 Yes 81mg Take 81 mg Univ ers ORAL 5-03 by mouth ity of 19:49: in the [place] [address] morning. Medical tablet Branch busPIRone 2023-0 Yes 10mg Take 1 Univer s 10 mg 5-03 tablet by ity of tablet 19:49: mouth in [place] [address] the Medical morning Branch and 1 tablet in the evening. rivaroxaban 2022-0 Yes 15mg Take 1 Univ ers 15 mg 5-03 tablet by ity of tablet 19:49: mouth in [place] [address] the Medical morning. Branch ASPIRIN 2022-0 Yes 81mg Take 81 mg Univ ers ORAL 5-03 by mouth ity of 19:49: in the [place] [address] morning. Medical tablet Branch busPIRone 2022-0 Yes 10mg Take 1 Univer s 10 mg 5-03 tablet by ity of tablet 19:49: mouth in [place] [address] the Medical morning Branch and 1 tablet in the evening. rivaroxaban 2022-0 Yes 15mg Take 1 Univ ers 15 mg 5-03 tablet by ity of tablet 19:49: mouth in [place] [address] the Medical morning. Branch ASPIRIN 2022-0 Yes 81mg Take 81 mg Univ ers ORAL 5-03 by mouth ity of 19:49: in the [place] [address] morning. Medical tablet Branch benazepriL 2022-0 2022- [...] 03 Oral, ity of (TYLENOL) 08:03: Q6HPRN, [place] [...] ity of PF 06:58: 07:06 ONCE, 1 [place] injection 00 :00 dose, On Medica l 10 mg Tue01/19/23 Branch at 0200, 1 mL ipratropium 2022-0 2022- No .5mg 0.5 mg, Un igor (ATROVENT) 01-19-03 Inhalation it y of 0.02 % 06:45: 07:09 , ONCE, 1 [place] nebulizer 00 :00 dose, On Medica l solution Tue01/19/23 Branc h 0.5 mg at 0145, MICHAEL ipratropium 3-0 Yes [id number] .5mg Inhale 2.5 Univers 0.02 % 5-03 mL every 6 ity of nebulizer 00:00: (six) [place] solution 00 hours as Medical needed for Branch Wheezing, Shortness of Breath, Bronchospa sm or Chest tightness. guaiFENesin 2023-0 Yes [id number] 200mg Take 10 mL Univers 100 mg/5 mL 5-03 by mouth ity of solution 00:00: every 6 [place] 00 (six) Medical hours as Branch needed for Cough. ipratropium 2023-0 Yes [id number] .5mg Inhale 2.5 Univers 0.02 % 5-03 mL every 6 ity of nebulizer 00:00: (six) [place] solution 00 hours as Medical needed for Branch Wheezing, Shortness of Breath, Bronchospa sm or Chest tightness. guaiFENesin 2023-0 Yes [id number] 200mg Take 10 mL Univers 100 mg/5 mL 5-03 by mouth ity of solution 00:00: every 6 [place] 00 (six) Medical hours as Branch needed for Cough. ipratropium 2023-0 Yes [id number] .5mg Inhale 2.5 Univers 0.02 % 5-03 mL every 6 ity of nebulizer 00:00: (six) [place] solution 00 hours as Medical needed for Branch Wheezing, Shortness of Breath, Bronchospa sm or Chest tightness. guaiFENesin 2023-0 Yes [id number] 200mg Take 10 mL Univers 100 mg/5 mL 5-03 by mouth ity of solution 00:00: every 6 [place] 00 (six) Medical hours as Branch needed for Cough. ipratropium 2023-0 Yes [id number] .5mg Inhale 2.5 Univers 0.02 % 5-03 mL every 6 ity of nebulizer 00:00: (six) [place] solution 00 hours as Medical needed for Branch Wheezing, Shortness of Breath, Bronchospa sm or Chest tightness. guaiFENesin 2023-0 Yes [id number] 200mg Take 10 mL Univers 100 mg/5 mL 5-03 by mouth ity of solution 00:00: every 6 [place] 00 (six) Medical hours as Branch needed for Cough. ipratropium 2023-0 Yes [id number] .5mg Inhale 2.5 Univers 0.02 % 5-03 mL every 6 ity of nebulizer 00:00: (six) [place] solution 00 hours as Medical needed for Branch Wheezing, Shortness of Breath, Bronchospa sm or Chest tightness. guaiFENesin 2023-0 Yes [id number] 200mg Take 10 mL Univers 100 mg/5 mL 5-03 by mouth ity of solution 00:00: every 6 [place] 00 (six) Medical hours as Branch needed for Cough. ipratropium 2023-0 Yes [id number] .5mg Inhale 2.5 Univers 0.02 % 5-03 mL every 6 ity of nebulizer 00:00: (six) [place] solution 00 hours as Medical needed for Branch Wheezing, Shortness of Breath, Bronchospa sm or Chest tightness. guaiFENesin 2023-0 Yes [id number] 200mg Take 10 mL Univers 100 mg/5 mL 5-03 by mouth ity of solution 00:00: every 6 [place] 00 (six) Medical hours as Branch needed for Cough. ipratropium 2023-0 Yes [id number] .5mg Inhale 2.5 Univers 0.02 % 5-03 mL every 6 ity of nebulizer 00:00: (six) [place] solution 00 hours as Medical needed for Branch Wheezing, Shortness of Breath, Bronchospa sm or Chest tightness. guaiFENesin 2023-0 Yes [id number] 200mg Take 10 mL [facility] 100 mg/5 mL 5-03 by mouth ity of solution 00:00: every 6 [place] 00 (six) Medical hours as Branch needed for Cough. ipratropium 2023-0 Yes [id number] .5mg Inhale 2.5 Univers 0.02 % 5-03 mL every 6 ity of nebulizer 00:00: (six) [place] solution 00 hours as Medical needed for Branch Wheezing, Shortness of Breath, Bronchospa sm or Chest tightness. guaiFENesin 2023-0 Yes [id number] 200mg Take 10 mL [facility] 100 mg/5 mL 5-03 by mouth ity of solution 00:00: every 6 [place] 00 (six) Medical hours as Branch needed for Cough. ipratropium 2023-0 Yes [id number] .5mg Inhale 2.5 Univers 0.02 % 5-03 mL every 6 ity of nebulizer 00:00: (six) [place] solution 00 hours as Medical needed for Branch Wheezing, Shortness of Breath, Bronchospa sm or Chest tightness. guaiFENesin 2023-0 Yes [id number] 200mg Take 10 mL Univers 100 mg/5 mL 5-03 by mouth ity of solution 00:00: every 6 [place] 00 (six) Medical hours as Branch needed for Cough. ipratropium 2023-0 Yes [id number] .5mg Inhale 2.5 Univers 0.02 % 5-03 mL every 6 ity of nebulizer 00:00: (six) [place] solution 00 hours as Medical needed for Branch Wheezing, Shortness of Breath, Bronchospa sm or Chest tightness. guaiFENesin 2023-0 Yes [id number] 200mg Take 10 mL [facility] 100 mg/5 mL 5-03 by mouth ity of solution 00:00: every 6 [place] 00 (six) Medical hours as Branch needed for Cough. ipratropium 2023-0 Yes [id number] .5mg Inhale 2.5 Univers 0.02 % 5-03 mL every 6 ity of nebulizer 00:00: (six) [place] solution 00 hours as Medical needed for Branch Wheezing, Shortness of Breath, Bronchospa sm or Chest tightness. guaiFENesin 2023-0 Yes [id number] 200mg Take 10 mL [facility] 100 mg/5 mL 5-03 by mouth ity of solution 00:00: every 6 [place] 00 (six) Medical hours as Branch needed for Cough. ipratropium 2023-0 Yes [id number] .5mg Inhale 2.5 Univers 0.02 % 5-03 mL every 6 ity of nebulizer 00:00: (six) [place] solution 00 hours as Medical needed for Branch Wheezing, Shortness of Breath, Bronchospa sm or Chest tightness. guaiFENesin 2023-0 Yes [id number] 200mg Take 10 mL [facility] 100 mg/5 mL 5-03 by mouth ity of solution 00:00: every 6 [place] 00 (six) Medical hours as Branch needed for Cough. ipratropium 2023-0 Yes [id number] .5mg Inhale 2.5 Univers 0.02 % 5-03 mL every 6 ity of nebulizer 00:00: (six) [place] solution 00 hours as Medical needed for Branch Wheezing, Shortness of Breath, Bronchospa sm or Chest tightness. guaiFENesin 2023-0 Yes [id number] 200mg Take 10 mL [facility] 100 mg/5 mL 5-03 by mouth ity of solution 00:00: every 6 [place] 00 (six) Medical hours as Branch needed for Cough. ipratropium 2023-0 Yes [id number] .5mg Inhale 2.5 Univers 0.02 % 5-03 mL every 6 ity of nebulizer 00:00: (six) [place] solution 00 hours as Medical needed for Branch Wheezing, Shortness of Breath, Bronchospa sm or Chest tightness. guaiFENesin 2023-0 Yes [id number] 200mg Take 10 mL [facility] 100 mg/5 mL 5-03 by mouth ity of solution 00:00: every 6 [place] 00 (six) Medical hours as Branch needed for Cough. ipratropium 2023-0 Yes [id number] .5mg Inhale 2.5 Univers 0.02 % 5-03 mL every 6 ity of nebulizer 00:00: (six) [place] solution 00 hours as Medical needed for Branch Wheezing, Shortness of Breath, Bronchospa sm or Chest tightness. guaiFENesin 2023-0 Yes [id number] 200mg Take 10 mL [facility] 100 mg/5 mL 5-03 by mouth ity of solution 00:00: every 6 [place] 00 (six) Medical hours as Branch needed for Cough. ipratropium 2023-0 Yes [id number] .5mg Inhale 2.5 Univers 0.02 % 5-03 mL every 6 ity of nebulizer 00:00: (six) [place] solution 00 hours as Medical needed for Branch Wheezing, Shortness of Breath, Bronchospa sm or Chest tightness. guaiFENesin 2023-0 Yes [id number] 200mg Take 10 mL [facility] 100 mg/5 mL 5-03 by mouth ity of solution 00:00: every 6 [place] 00 (six) Medical hours as Branch needed for Cough. ipratropium 2023-0 Yes [id number] .5mg Inhale 2.5 Univers 0.02 % 5-03 mL every 6 ity of nebulizer 00:00: (six) [place] solution 00 hours as Medical needed for Branch Wheezing, Shortness of Breath, Bronchospa sm or Chest tightness. guaiFENesin 2023-0 Yes [id number] 200mg Take 10 mL Univers 100 mg/5 mL 5-03 by mouth ity of solution 00:00: every 6 [place] 00 (six) Medical hours as Branch needed for Cough. ipratropium 2023-0 Yes [id number] .5mg Inhale 2.5 Univers 0.02 % 5-03 mL every 6 ity of nebulizer 00:00: (six) [place] solution 00 hours as Medical needed for Branch Wheezing, Shortness of Breath, Bronchospa sm or Chest tightness. guaiFENesin 2023-0 Yes [id number] 200mg Take 10 mL [facility] 100 mg/5 mL 5-03 by mouth ity of solution 00:00: every 6 [place] 00 (six) Medical hours as Branch needed for Cough. ipratropium 2023-0 Yes [id number] .5mg Inhale 2.5 Univers 0.02 % 5-03 mL every 6 ity of nebulizer 00:00: (six) [place] solution 00 hours as Medical needed for Branch Wheezing, Shortness of Breath, Bronchospa sm or Chest tightness. guaiFENesin 2023-0 Yes [id number] 200mg Take 10 mL [facility] 100 mg/5 mL 5-03 by mouth ity of solution 00:00: every 6 [place] 00 (six) Medical hours as Branch needed for Cough. guaiFENesin 2023-0 Yes [id number] 200mg Take 10 mL [facility] 100 mg/5 mL 5-03 by mouth ity of solution 00:00: every 6 [place] 00 (six) Medical hours as Branch needed for Cough. guaiFENesin 2023-0 Yes [id number] 200mg Take 10 mL [facility] 100 mg/5 mL 5-03 by mouth ity of solution 00:00: every 6 [place] 00 (six) Medical hours as Branch needed for Cough. guaiFENesin 2023-0 Yes [id number] 200mg Take 10 mL [facility] 100 mg/5 mL 5-03 by mouth ity of solution 00:00: every 6 [place] 00 (six) Medical hours as Branch needed for Cough. guaiFENesin 2023-0 Yes [id number] 200mg Take 10 mL [facility] 100 mg/5 mL 5-03 by mouth ity of solution 00:00: every 6 [place] 00 (six) Medical hours as Branch needed for Cough. guaiFENesin 2023-0 Yes [id number] 200mg Take 10 mL [facility] 100 mg/5 mL 5-03 by mouth ity of solution 00:00: every 6 [place] 00 (six) Medical hours as Branch needed for Cough. guaiFENesin 2023-0 Yes [id number] 200mg Take 10 mL [facility] 100 mg/5 mL 5-03 by mouth ity of solution 00:00: every 6 [place] 00 (six) Medical hours as Branch needed for Cough. guaiFENesin 2023-0 Yes [id number] 200mg Take 10 mL [facility] 100 mg/5 mL 5-03 by mouth ity of solution 00:00: every 6 [place] 00 (six) Medical hours as Branch needed for Cough. guaiFENesin 2023-0 Yes [id number] 200mg Take 10 mL [facility] 100 mg/5 mL 5-03 by mouth ity of solution 00:00: every 6 [place] 00 (six) Medical hours as Branch needed for Cough. guaiFENesin 2023-0 Yes [id number] 200mg Take 10 mL [facility] 100 mg/5 mL 5-03 by mouth ity of solution 00:00: every 6 [place] 00 (six) Medical hours as Branch needed for Cough. guaiFENesin 2023-0 Yes [id number] 200mg Take 10 mL [facility] 100 mg/5 mL 5-03 by mouth ity of solution 00:00: every 6 [place] 00 (six) Medical hours as Branch needed for Cough. ipratropium 2023-0 2023- No [id number] .5mg Inhale 2.5 [facility] 0.02 % 5-03 06-01 mL every 6 ity of nebulizer 00:00: 00:00 (six) [place] solution 00 :00 hours as Medical needed for Branch Wheezing, Shortness of Breath, Bronchospa sm or Chest tightness. levoFLOXaci 2022-0 2022- No [id number] 500mg Take 1 [facility] n 500 mg 01-19-08 tablet by ity o f tablet 00:00: 04:59 mouth in [place] 00 :00 [facility] for 4 days. levoFLOXaci 2022-0 202- No [id number] 500mg Take 1 [facility] n 500 mg 01-19-08 tablet by ity o f tablet 00:00: 04:59 mouth in [place] 00 :00 [facility] for 4 days. levoFLOXaci 2022- 202- No [id number] 500mg Take 1 [facility] n 500 mg 01-19-08 tablet by ity o f tablet 00:00: 04:59 mouth in [place] 00 :00 [facility] for 4 days. levoFLOXaci 2022-0 2022- No [id number] 500mg Take 1 [facility] n 500 mg 01-19-08 tablet by ity o f tablet 00:00: 04:59 mouth in [place] 00 :00 [facility] for 4 days. levoFLOXaci 2022-0 2022- No [id number] 500mg Take 1 [facility] n 500 mg 01-19-08 tablet by ity o f tablet 00:00: 04:59 mouth in [place] 00 :00 [facility] for 4 days. levoFLOXaci 2022-0 2022- No [id number] 500mg Take 1 [facility] n 500 mg 01-1908 tablet by ity o f tablet 00:00: 04:59 mouth in [place] 00 :00 [facility] for 4 days. levalbutero 2022- [...] mg at 0645, MICHAEL albuterol 2022-0 Yes [id number] 2{puff} Inhale 2 [facility] 90 5-01 Puffs ity of mcg/actuati 00:00: every 4 [place] on inhaler 00 (four) Medical hours as Branch needed for Wheezing or Shortness of Breath. albuterol 2022-0 Yes [id number] 2.5mg Inhale 3 [facility] 2.5 mg /3 5-01 mL every 4 ity of mL (0.083 00:00: (four) [place] %) 00 hours. May Medical nebulizer also Branch solution nebulize one extra every 6 hours. predniSONE 2022-0 Yes [id number] 50mg Take 1 [facility] 50 mg 5-01 tablet by ity of tablet 00:00: mouth in [place] 00 the Medical morning. Branch benzonatate 2022-0 Yes [id number] 200mg Take 1 [facility] 200 mg 5-01 capsule by ity of capsule 00:00: mouth 3 [place] 00 (three) Medical times Branch daily as needed for Cough. ipratropium 2022-0 Yes [id number] .5mg Inhale 2.5 [facility] 0.02 % 5-01 mL every 6 ity of nebulizer 00:00: (six) [place] solution 00 hours as Medical needed for Branch Wheezing, Shortness of Breath, Bronchospa sm or Chest tightness. albuterol 2022-0 Yes [id number] 2{puff} Inhale 2 [facility] 90 5-01 Puffs ity of mcg/actuati 00:00: every 4 [place] on inhaler 00 (four) Medical hours as Branch needed for Wheezing or Shortness of Breath. albuterol 2022-0 Yes [id number] 2.5mg Inhale 3 [facility] 2.5 mg /3 5-01 mL every 4 ity of mL (0.083 00:00: (four) [place] %) 00 hours. May Medical nebulizer also Branch solution nebulize one extra every 6 hours. benzonatate 2022-0 Yes [id number] 200mg Take 1 [facility] 200 mg 5-01 capsule by ity of capsule 00:00: mouth 3 [place] 00 (three) Medical times Branch daily as needed for Cough. albuterol 2022-0 Yes [id number] 2{puff} Inhale 2 [facility] 90 5-01 Puffs ity of mcg/actuati 00:00: every 4 [place] on inhaler 00 (four) Medical hours as Branch needed for Wheezing or Shortness of Breath. albuterol 2022-0 Yes [id number] 2.5mg Inhale 3 [facility] 2.5 mg /3 5-01 mL every 4 ity of mL (0.083 00:00: (four) [place] %) 00 hours. May Medical nebulizer also Branch solution nebulize one extra every 6 hours. benzonatate 2022-0 Yes [id number] 200mg Take 1 [facility] 200 mg 5-01 capsule by ity of capsule 00:00: mouth 3 00 (three) Medical times Branch daily as needed for Cough. albuterol 2022-0 Yes [id number] 2{puff} Inhale 2 [facility] 90 5-01 Puffs ity of mcg/actuati 00:00: every 4 [place] on inhaler 00 (four) Medical hours as Branch needed for Wheezing or Shortness of Breath. albuterol 2022-0 Yes [id number] 2.5mg Inhale 3 [facility] 2.5 mg /3 5-01 mL every 4 ity of mL (0.083 00:00: (four) [place] %) 00 hours. May Medical nebulizer also Branch solution nebulize one extra every 6 hours. benzonatate 2022-0 Yes [id number] 200mg Take 1 [facility] 200 mg 5-01 capsule by ity of capsule 00:00: mouth 3 [place] 00 (three) Medical times Branch daily as needed for Cough. albuterol 2022-0 Yes [id number] 2{puff} Inhale 2 [facility] 90 5-01 Puffs ity of mcg/actuati 00:00: every 4 [place] on inhaler 00 (four) Medical hours as Branch needed for Wheezing or Shortness of Breath. albuterol 3-0 Yes [id number] 2.5mg Inhale 3 [facility] 2.5 mg /3 5-01 mL every 4 ity of mL (0.083 00:00: (four) [place] %) 00 hours. May Medical nebulizer also Branch solution nebulize one extra every 6 hours. benzonatate 3-0 Yes [id number] 200mg Take 1 [facility] 200 mg 5-01 capsule by ity of capsule 00:00: mouth 3 [place] (three) Medical times Branch daily as needed for Cough. albuterol 2022-0 Yes [id number] 2{puff} Inhale 2 [facility] 90 5-01 Puffs ity of mcg/actuati 00:00: every 4 [place] on inhaler 00 (four) Medical hours as Branch needed for Wheezing or Shortness of Breath. albuterol 2022-0 Yes [id number] 2.5mg Inhale 3 [facility] 2.5 mg /3 5-01 mL every 4 ity of mL (0.083 00:00: (four) [place] %) 00 hours. May Medical nebulizer also Branch solution nebulize one extra every 6 hours. benzonatate 2022-0 Yes [id number] 200mg Take 1 [facility] 200 mg 5-01 capsule by ity of capsule 00:00: mouth 3 (three) Medical times Branch daily as needed for Cough. albuterol 3-0 Yes [id number] 2{puff} Inhale 2 [facility] 90 5-01 Puffs ity of mcg/actuati 00:00: every 4 [place] on inhaler 00 (four) Medical hours as Branch needed for Wheezing or Shortness of Breath. albuterol 3-0 Yes [id number] 2.5mg Inhale 3 [facility] 2.5 mg /3 5-01 mL every 4 ity of mL (0.083 00:00: (four) [place] %) 00 hours. May Medical nebulizer also Branch solution nebulize one extra every 6 hours. benzonatate 3-0 Yes [id number] 200mg Take 1 [facility] 200 mg 5-01 capsule by ity of capsule 00:00: mouth 3 (three) Medical times Branch daily as needed for Cough. albuterol 2023-0 Yes [id number] 2{puff} Inhale 2 [facility] 90 5-01 Puffs ity of mcg/actuati 00:00: every 4 [place] on inhaler 00 (four) Medical hours as Branch needed for Wheezing or Shortness of Breath. albuterol 2022-0 Yes [id number] 2.5mg Inhale 3 [facility] 2.5 mg /3 5-01 mL every 4 ity of mL (0.083 00:00: (four) [place] %) 00 hours. May Medical nebulizer also Branch solution nebulize one extra every 6 hours. benzonatate 2022-0 Yes [id number] 200mg Take 1 [facility] 200 mg 5-01 capsule by ity of capsule 00:00: mouth 3 [place] 00 (three) Medical times Branch daily as needed for Cough. albuterol 2022-0 Yes [id number] 2{puff} Inhale 2 [facility] 90 5-01 Puffs ity of mcg/actuati 00:00: every 4 [place] on inhaler 00 (four) Medical hours as Branch needed for Wheezing or Shortness of Breath. albuterol 2022-0 Yes [id number] 2.5mg Inhale 3 [facility] 2.5 mg /3 5-01 mL every 4 ity of mL (0.083 00:00: (four) [place] %) 00 hours. May Medical nebulizer also Branch solution nebulize one extra every 6 hours. benzonatate 2022-0 Yes [id number] 200mg Take 1 [facility] 200 mg 5-01 capsule by ity of capsule 00:00: mouth 3 [place] 00 (three) Medical times Branch daily as needed for Cough. albuterol 2022-0 Yes [id number] 2{puff} Inhale 2 [facility] 90 5-01 Puffs ity of mcg/actuati 00:00: every 4 [place] on inhaler 00 (four) Medical hours as Branch needed for Wheezing or Shortness of Breath. albuterol 2022-0 Yes [id number] 2.5mg Inhale 3 [facility] 2.5 mg /3 5-01 mL every 4 ity of mL (0.083 00:00: (four) [place] %) 00 hours. May Medical nebulizer also Branch solution nebulize one extra every 6 hours. benzonatate 2022-0 Yes [id number] 200mg Take 1 [facility] 200 mg 5-01 capsule by ity of capsule 00:00: mouth 3 (three) Medical times Branch daily as needed for Cough. albuterol 2022-0 Yes [id number] 2{puff} Inhale 2 [facility] 90 5-01 Puffs ity of mcg/actuati 00:00: every 4 [place] on inhaler 00 (four) Medical hours as Branch needed for Wheezing or Shortness of Breath. albuterol 3-0 Yes [id number] 2.5mg Inhale 3 [facility] 2.5 mg /3 5-01 mL every 4 ity of mL (0.083 00:00: (four) [place] %) 00 hours. May Medical nebulizer also Branch solution nebulize one extra every 6 hours. benzonatate 2022-0 Yes [id number] 200mg Take 1 [facility] 200 mg 5-01 capsule by ity of capsule 00:00: mouth 3 (three) Medical times Branch daily as needed for Cough. albuterol 2022-0 Yes [id number] 2{puff} Inhale 2 [facility] 90 5-01 Puffs ity of mcg/actuati 00:00: every 4 [place] on inhaler 00 (four) Medical hours as Branch needed for Wheezing or Shortness of Breath. albuterol 3-0 Yes [id number] 2.5mg Inhale 3 [facility] 2.5 mg /3 5-01 mL every 4 ity of mL (0.083 00:00: (four) [place] %) 00 hours. May Medical nebulizer also Branch solution nebulize one extra every 6 hours. benzonatate 3-0 Yes [id number] 200mg Take 1 [facility] 200 mg 5-01 capsule by ity of capsule 00:00: mouth 3 (three) Medical times Branch daily as needed for Cough. albuterol 2023-0 Yes [id number] 2{puff} Inhale 2 [facility] 90 5-01 Puffs ity of mcg/actuati 00:00: every 4 [place] on inhaler 00 (four) Medical hours as Branch needed for Wheezing or Shortness of Breath. albuterol 2023-0 Yes [id number] 2.5mg Inhale 3 [facility] 2.5 mg /3 5-01 mL every 4 ity of mL (0.083 00:00: (four) [place] %) 00 hours. May Medical nebulizer also Branch solution nebulize one extra every 6 hours. benzonatate 2022-0 Yes [id number] 200mg Take 1 [facility] 200 mg 5-01 capsule by ity of capsule 00:00: mouth 3 [place] (three) Medical times Branch daily as needed for Cough. albuterol 2022-0 Yes [id number] 2{puff} Inhale 2 [facility] 90 5-01 Puffs ity of mcg/actuati 00:00: every 4 [place] on inhaler 00 (four) Medical hours as Branch needed for Wheezing or Shortness of Breath. albuterol 2022-0 Yes [id number] 2.5mg Inhale 3 [facility] 2.5 mg /3 5-01 mL every 4 ity of mL (0.083 00:00: (four) [place] %) 00 hours. May Medical nebulizer also Branch solution nebulize one extra every 6 hours. benzonatate 2022-0 Yes [id number] 200mg Take 1 [facility] 200 mg 5-01 capsule by ity of capsule 00:00: mouth 3 (three) Medical times Branch daily as needed for Cough. albuterol 2022-0 Yes [id number] 2{puff} Inhale 2 [facility] 90 5-01 Puffs ity of mcg/actuati 00:00: every 4 [place] on inhaler 00 (four) Medical hours as Branch needed for Wheezing or Shortness of Breath. albuterol 2022-0 Yes [id number] 2.5mg Inhale 3 [facility] 2.5 mg /3 5-01 mL every 4 ity of mL (0.083 00:00: (four) [place] %) 00 hours. May Medical nebulizer also Branch solution nebulize one extra every 6 hours. benzonatate 2022-0 Yes [id number] 200mg Take 1 [facility] 200 mg 5-01 capsule by ity of capsule 00:00: mouth 3 (three) Medical times Branch daily as needed for Cough. albuterol 2022-0 Yes [id number] 2{puff} Inhale 2 [facility] 90 5-01 Puffs ity of mcg/actuati 00:00: every 4 [place] on inhaler 00 (four) Medical hours as Branch needed for Wheezing or Shortness of Breath. albuterol 2022-0 Yes [id number] 2.5mg Inhale 3 [facility] 2.5 mg /3 5-01 mL every 4 ity of mL (0.083 00:00: (four) [place] %) 00 hours. May Medical nebulizer also Branch solution nebulize one extra every 6 hours. benzonatate 3-0 Yes [id number] 200mg Take 1 [facility] 200 mg 5-01 capsule by ity of capsule 00:00: mouth 3 (three) Medical times Branch daily as needed for Cough. albuterol 2022-0 Yes [id number] 2{puff} Inhale 2 [facility] 90 5-01 Puffs ity of mcg/actuati 00:00: every 4 [place] on inhaler 00 (four) Medical hours as Branch needed for Wheezing or Shortness of Breath. albuterol 3-0 Yes [id number] 2.5mg Inhale 3 [facility] 2.5 mg /3 5-01 mL every 4 ity of mL (0.083 00:00: (four) [place] %) 00 hours. May Medical nebulizer also Branch solution nebulize one extra every 6 hours. benzonatate 3-0 Yes [id number] 200mg Take 1 [facility] 200 mg 5-01 capsule by ity of capsule 00:00: mouth 3 (three) Medical times Branch daily as needed for Cough. albuterol 3-0 Yes [id number] 2.5mg Inhale 3 [facility] 2.5 mg /3 5-01 mL every 4 ity of mL (0.083 00:00: (four) [place] %) 00 hours. May Medical nebulizer also Branch solution nebulize one extra every 6 hours. benzonatate 3-0 Yes [id number] 200mg Take 1 [facility] 200 mg 5-01 capsule by ity of capsule 00:00: mouth 3 (three) Medical times Branch daily as needed for Cough. albuterol 2023-0 Yes [id number] 2.5mg Inhale 3 [facility] 2.5 mg /3 5-01 mL every 4 ity of mL (0.083 00:00: (four) [place] %) 00 hours. May Medical nebulizer also Branch solution nebulize one extra every 6 hours. benzonatate 2023-0 Yes [id number] 200mg Take 1 [facility] 200 mg 5-01 capsule by ity of capsule 00:00: mouth 3 (three) Medical times Branch daily as needed for Cough. albuterol 3-0 Yes [id number] 2.5mg Inhale 3 [facility] 2.5 mg /3 5-01 mL every 4 ity of mL (0.083 00:00: (four) [place] %) 00 hours. May Medical nebulizer also Branch solution nebulize one extra every 6 hours. benzonatate 3-0 Yes [id number] 200mg Take 1 [facility] 200 mg 5-01 capsule by ity of capsule 00:00: mouth 3 [place] (three) Medical times Branch daily as needed for Cough. albuterol 2022-0 Yes [id number] 2.5mg Inhale 3 [facility] 2.5 mg /3 5-01 mL every 4 ity of mL (0.083 00:00: (four) [place] %) 00 hours. May Medical nebulizer also Branch solution nebulize one extra every 6 hours. albuterol 2022-0 Yes [id number] 2.5mg Inhale 3 [facility] 2.5 mg /3 5-01 mL every 4 ity of mL (0.083 00:00: (four) [place] %) 00 hours. May Medical nebulizer also Branch solution nebulize one extra every 6 hours. albuterol 2022-0 Yes [id number] 2.5mg Inhale 3 [facility] 2.5 mg /3 5-01 mL every 4 ity of mL (0.083 00:00: (four) [place] %) 00 hours. May Medical nebulizer also Branch solution nebulize one extra every 6 hours. albuterol 3-0 Yes [id number] 2.5mg Inhale 3 [facility] 2.5 mg /3 5-01 mL every 4 ity of mL (0.083 00:00: (four) [place] %) 00 hours. May Medical nebulizer also Branch solution nebulize one extra every 6 hours. albuterol 3-0 Yes [id number] 2.5mg Inhale 3 [facility] 2.5 mg /3 5-01 mL every 4 ity of mL (0.083 00:00: (four) [place] %) 00 hours. May Medical nebulizer also Branch solution nebulize one extra every 6 hours. albuterol 3-0 Yes [id number] 2.5mg Inhale 3 [facility] 2.5 mg /3 5-01 mL every 4 ity of mL (0.083 00:00: (four) [place] %) 00 hours. May Medical nebulizer also Branch solution nebulize one extra every 6 hours. albuterol 2022- No [id number] 2.5mg Inhale 3 [facility] 2.5 mg /3 5-01 06-15 mL every 4 ity of mL (0.083 00:00: 00:00 (four) [place] %) 00 :00 hours. May Medical nebulizer also Branch solution nebulize one extra every 6 hours. benzonatate 2022- No [id number] 200mg Take 1 [facility] 200 mg 01-17- capsule by ity of capsule 00:00: 00:00 mouth 3 [place] 00 :00 (three) Medical times Branch daily as needed for Cough. albuterol 2022- No [id number] 2{puff} Inhale 2 [facility] 90 01-17 05-19 Puffs ity of mcg/actuati 00:00: 00:00 every 4 [place] on inhaler 00 :00 (four) Medical hours as Branch needed for Wheezing or Shortness of Breath. predniSONE 2022- No [id number] 50mg Take 1 [facility] 50 mg 01-17 05-03 tablet by ity of tablet 00:00: 00:00 mouth in [place] 00 :00 the Medical morning. Branch ipratropium 2022- No [id number] .5mg Inhale 2.5 [facility] 0.02 % 01-17 [...] of tablet 14:36: mouth in [place] [address] the Medical morning. Branch ASPIRIN 2023-0 Yes 81mg Take 81 mg Univ ers ORAL 4-21 by mouth ity of 14:36: in the [place] [address] morning. Medical tablet Branch benazepriL 2023-0 Yes 10mg Take 1 Unive rs 10 mg 4-21 tablet by ity of tablet 14:36: mouth in [place] [address] the Medical morning. Branch busPIRone 2023-0 Yes 10mg Take 1 Univer s 10 mg 4-21 tablet by ity of tablet 14:36: mouth in [place] [address] the Medical morning Branch and 1 tablet in the evening. rivaroxaban 2023-0 Yes 15mg Take 1 Univ ers 15 mg 4-21 tablet by ity of tablet 14:36: mouth in [place] [address] the Medical morning. Branch ASPIRIN 2023-0 Yes 81mg Take 81 mg Univ ers ORAL 4-21 by mouth ity of 14:36: in the [place] [address] morning. Medical tablet Branch benazepriL 2023-0 Yes 10mg Take 1 Unive rs 10 mg 4-21 tablet by ity of tablet 14:36: mouth in [place] [address] the Medical morning. Branch busPIRone 2023-0 Yes 10mg Take 1 Univer s 10 mg 4-21 tablet by ity of tablet 14:36: mouth in [place] [address] the Medical morning Branch and 1 tablet in the evening. rivaroxaban 2023-0 Yes 15mg Take 1 Univ ers 15 mg 4-21 tablet by ity of tablet 14:36: mouth in [place] [address] the Medical morning. Branch ASPIRIN 2023-0 Yes 81mg Take 81 mg Univ ers ORAL 4-21 by mouth ity of 14:36: in the [place] [address] morning. Medical tablet Branch benazepriL 2023-0 Yes 10mg Take 1 Unive rs 10 mg 4-21 tablet by ity of tablet 14:36: mouth in [place] [address] the Medical morning. Branch busPIRone 2023-0 Yes 10mg Take 1 Univer s 10 mg 4-21 tablet by ity of tablet 14:36: mouth in [place] [address] the Medical morning Branch and 1 tablet in the evening. rivaroxaban 2023-0 Yes 15mg Take 1 Univ ers 15 mg 4-21 tablet by ity of tablet 14:36: mouth in [place] [address] the Medical morning. Branch ASPIRIN 2023-0 Yes 81mg Take 81 mg Univ ers ORAL 4-21 by mouth ity of 14:36: in the [place] [address] morning. Medical tablet Branch benazepriL 2023-0 Yes 10mg Take 1 Unive rs 10 mg 4-21 tablet by ity of tablet 14:36: mouth in [place] [address] the Medical morning. Branch donepeziL 5 3-0 [...] Medical morning. Branch tamsulosin 2023-0 2023- No [id number] .4mg Take 1 [facility] 0.4 mg 24 3-13 01- capsule by ity of hr capsule 00:00: 04:59 mouth in [place] 00 :00 the Medical morning Branch for 30 days. tamsulosin 2023-0 2023- No [id number] .4mg Take 1 [facility] 0.4 mg 24 -13 01- capsule by ity of hr capsule 00:00: 04:59 mouth in [place] 00 :00 the Medical morning Branch for 30 days. tamsulosin 2023-0 2023- No [id number] .4mg Take 1 [facility] 0.4 mg 24 -13 01- capsule by ity of hr capsule 00:00: 04:59 mouth in [place] 00 :00 the [facility] morning Branch for 30 days. tamsulosin 2023-0 2023- No [id number] .4mg Take 1 [facility] 0.4 mg 24 -13 01- capsule by ity of hr capsule 00:00: 04:59 mouth in [place] 00 :00 the Medical morning Branch for 30 days. tamsulosin 2023-0 2023- No [id number] .4mg Take 1 [facility] 0.4 mg 24 -13 01- capsule by ity of hr capsule 00:00: 04:59 mouth in [place] 00 :00 the [facility] morning Branch for 30 days. tamsulosin 2023-0 3- No [id number] .4mg Take 1 [facility] 0.4 mg 24 12-13- capsule by ity of hr capsule 00:00: 04:59 mouth in [place] 00 :00 the [facility] morning Branch for 30 days. donepeziL 2023-0 Yes 5mg 5 mg, Univers (ARICEPT) 3-26 Oral, ity of tablet 5 mg 17:30: [place] Medical [facility] 12/12/22 at 1230, Until Discontinu ed, Routine memantine 2023-0 Yes 5mg 5 mg, Univers (NAMENDA) 3-26 Oral, ity of tablet 5 mg 17:30: [place]ILY, [place] First dose Medical on [facility] 12/12/22 at 1230, Until Discontinu ed, Routine
cafe team member approving Restricted medication : TRAVIS ZENG busPIRone 2023-0 Yes 10mg Take 1 Univer s 10 mg 3-26 tablet by ity of tablet 14:37: mouth in [place] 13 the Medical morning Branch and 1 tablet in the evening. rivaroxaban 2023-0 Yes 15mg Take 1 Univ ers (XARELTO) 3-26 tablet by ity o f 15 mg 14:37: mouth in [place] tablet 13 the Medical morning. Branch aspirin 81 3-0 Yes 81mg Take 81 mg U nivers mg chewable 3-26 by mouth ity of tablet 14:37: in the [place] [address] morning. Medical tablet Branch busPIRone 2023-0 Yes 10mg Take 1 Univer s 10 mg 3-26 tablet by ity of tablet 14:37: mouth in [place] [address] the Medical morning Branch and 1 tablet in the evening. rivaroxaban 2023-0 Yes 15mg Take 1 Univ ers (XARELTO) 3-26 tablet by ity o f 15 mg 14:37: mouth in [place] tablet 13 the Medical morning. Branch busPIRone 2023-0 Yes 10mg Take 1 Univer s 10 mg 3-26 tablet by ity of tablet 14:37: mouth in [place] [address] the Medical morning Branch and 1 tablet in the evening. rivaroxaban 2023-0 Yes 15mg Take 1 Univ ers (XARELTO) 3-26 tablet by ity o f 15 mg 14:37: mouth in [place] tablet 13 the Medical morning. Branch aspirin 81 3-0 Yes 81mg Take 81 mg U nivers mg chewable 3-26 by mouth ity of tablet 14:37: in the [place] [address] morning. Medical tablet Branch busPIRone 2023-0 Yes 10mg Take 1 Univer s 10 mg 3-26 tablet by ity of tablet 14:37: mouth in [place] [address] the Medical morning Branch and 1 tablet [...] of capsule 0.4 14:00: DAILY, [facility] s mg 00 First dose Medical [...] injection last 40 mg modificati on) on [place] 12/12/22 at 0900, Until Discontinu ed, Routine [...] of mg tablet 11:47: 00:00 mouth in [facility] as 13 :00 the Medical morning. Branch melatonin 2022-0 Yes 6mg 6 mg, Univers (MELATIN) 12-12 Oral, QHS, ity of tablet 6 mg 02:00: First dose [place] 00 on [facility] Medical 12/11/22 at Branch 2100, Until Discontinu ed, Routine atorvastati Yes 40mg 40 mg, Univ ers n (LIPITOR) - Oral, QHS, it y of tablet 40 02:00: First dose [place] mg 00 on [facility] Medical 12/11/22 at Branch 2100, Until Discontinu ed, Routine carvediloL 2022- No [id number] 3.125mg Take 1 Univers 3.125 mg 12-12- tablet by ity o f tablet 00:00: 04:59 mouth in [place] 00 :00 the [facility] morning Branch and 1 tablet in the evening. Take with meals. Do all this for 30 days. atorvastati 2022- No [id number] 40mg Take 1 Univers n 40 mg 12-12 tablet by ity of tablet 00:00: 04:59 mouth at [place] [facility] Branch days. donepeziL 5 2022- No [id number] 5mg Take 1 [facility] mg tablet 12-12 tablet by ity of 00:00: 04:59 mouth in [place] 00 :00 the [facility] for 30 days. memantine 5 2022- No [id number] 5mg Take 1 Univers mg tablet 12-12- tablet by ity of 00:00: 04:59 mouth in [place] 00 :00 the [facility] for 30 days. carvediloL 2022- No [id number] 3.125mg Take 1 Univers 3.125 mg 12-12 tablet by ity o f tablet 00:00: 04:59 mouth in [place] 00 :00 the [facility] morning Branch and 1 tablet in the evening. Take with meals. Do all this for 30 days. atorvastati 2022- No [id number] 40mg Take 1 Univers n 40 mg 12-12- tablet by ity of tablet 00:00: 04:59 mouth at [place] 00 :00 [facility] Medical for 30 Branch days. donepeziL 5 2022- No [id number] 5mg Take 1 Univers mg tablet 12-12 tablet by ity of 00:00: 04:59 mouth in [place] 00 :00 the [facility] for 30 days. memantine 5 2022- No [id number] 5mg Take 1 Univers mg tablet -12 01- tablet by ity of 00:00: 04:59 mouth in [place] 00 :00 the [facility] for 30 days. carvediloL 2022- No [id number] 3.125mg Take 1 Univers 3.125 mg 3-12 01- tablet by ity o f tablet 00:00: 04:59 mouth in [place] 00 :00 the [facility] and 1 tablet in the evening. Take with meals. Do all this for 30 days. atorvastati 2022- No [id number] 40mg Take 1 Univers n 40 mg -12 01- tablet by ity of tablet 00:: 04:59 mouth [facility] [place] [facility] donepeziL 5 2022- No [id number] 5mg Take 1 Univers mg tablet 12-12- tablet by ity of 00:00: 04:59 mouth in [place] 00 :00 [facility] for 30 days. memantine 5 2022- No [id number] 5mg Take 1 [facility] mg tablet -12 01- tablet by ity of 00:: 04:59 mouth in [place] 00 :00 [facility] for 30 days. carvediloL 2022- No [id number] 3.125mg Take 1 Univers 3.125 mg -12 01- tablet by ity o f tablet 00:: 04:59 mouth in [place] 00 :00 the [facility] and 1 tablet in the evening. Take with meals. Do all this for 30 days. atorvastati 2022- No [id number] 40mg Take 1 Univers n 40 mg 3-12 01- tablet by ity of tablet 00:: 04:59 mouth at [place] 00 :00 [facility] for 30 Branch days. carvediloL 2022- No [id number] 3.125mg Take 1 Univers 3.125 mg 3-12 01-26 tablet by ity o f tablet 00:00: 04:59 mouth in [place] 00 :00 the [facility] and 1 tablet in the evening. Take with meals. Do all this for 30 days. atorvastati 2022-2022- No [id number] 40mg Take 1 Univers n 40 mg 12-12- tablet by ity of tablet 00:00: 04:59 mouth at [place] 00 :00 [facility] for 30 Branch days. carvediloL 2022-2022- No [id number] 3.125mg Take 1 Univers 3.125 mg 12-12- tablet by ity o f tablet 00:00: 04:59 mouth in [place] 00 :00 [facility] and 1 tablet in the evening. Take with meals. Do all this for 30 days. atorvastati 2022-2022- No [id number] 40mg Take 1 Univers n 40 mg 12-12 tablet by ity of tablet 00:00: 04:59 mouth at [place] 00 :00 [facility] for 30 Branch days. donepeziL 5 2022-2022- No [id number] 5mg Take 1 Univers mg tablet 12-12 tablet by ity of 00:00: 00:00 mouth in [place] 00 :00 [facility] for 30 days. memantine 5 2022-0 2022- No [id number] 5mg Take 1 Univers mg tablet 12-12- tablet by ity of 00:00: 00:00 mouth in [place] 00 :00 [facility] for 30 days. donepeziL 5 2022-0 3- No [id number] 5mg Take 1 Univers mg tablet 12-12 tablet by ity of 00:00: 00:00 mouth in [place] 00 :00 [facility] for 30 days. memantine 5 2022-2022- No [id number] 5mg Take 1 Univers mg tablet 12-12 tablet by ity of 00:00: 00:00 mouth in [place] 00 :00 [facility] for 30 days. levalbutero Yes [...] [place] mg 00 First dose Medical on [facility] Branch 12/11/22 at 0900, Until Discontinu ed, Routine nicotine 0 Yes 1{patch 1 Patch, [facility] ig[facility] (NICODERM) 25 } Topical, ity o f 21 mg/24 hr 13:45: Administer [place] patch 1 00 over 24 Medical Patch Hours, Branch Q24H, First dose on [facility] 12/11/22 at 0845, Until Discontinu ed, Routine ipratropium 0 Yes .5mg 0.5 mg, Uni vers (ATROVENT) 25 Inhalation ity of 0.02 % 13:00: , QID, [place] nebulizer 00 First dose Medi lucho solution on [facility] Branch 0.5 mg 12/11/22 at 0800, Until Discontinu ed carvediloL 0 Yes 3.125mg 3.125 mg, Univers (COREG) 25 Oral, BID ity of tablet 13:00: MEALS, [place] 3.125 mg 00 First dose Medic al on [facility] Branch 12/11/22 at 0800, Until Discontinu ed, Routine busPIRone Yes 10mg 10 mg, Univer s (BUSPAR) 3-25 Oral, BID, ity o f tablet 10 13:00: First dose [place] mg 00 on [facility] Medical 12/11/22 at Branch 0800, Until Discontinu ed, Routine methylpredn 2022- No 125mg 125 mg, U nivers isolone sod 12-11-25 Intravenou i ty of succ 05:00: 12:35 s, Q6H, [place] (SOLU-MEDRO 00 :32 First dose Me dical L) on [facility] Branch injection 12/11/22 at 125 mg [...] by ity of tablet 12:44: mouth in [place] [address] the Medical morning Branch and 1 tablet in the evening. Take with meals. busPIRone 3-0 Yes 10mg Take 1 Univer s 10 mg 3-18 tablet by ity of tablet 12:44: mouth in [place] [address] the Medical morning Branch and 1 tablet [...] [place] 03 times Medical daily. Branch benazepriL 3-0 [...] by ity of tablet 12:44: mouth in [place] [address] the Medical morning Branch and 1 tablet [...] by ity of tablet 12:44: mouth in [place] [address] the Medical morning Branch and 1 tablet in the evening. KCL 20 mEq 2023-0 Yes Take by Univ ers tablet 3-18 mouth 2 ity of 12:44: (two) [place] [address] times Medical daily. Branch benazepriL 2023-0 Yes 10mg Take 1 Unive rs 10 mg 3-18 tablet by ity of tablet 12:44: mouth in [place] [address] the Medical morning. Branch rivaroxaban 2023-0 Yes 15mg Take 1 Univ ers (XARELTO) 3-18 tablet by ity o f 15 mg 12:44: mouth in [facility] 03 the Medical morning. Branch carvediloL 2023-0 Yes 3.125mg Take 1 [facility] 3.125 mg 3-18 tablet by ity of tablet 12:44: mouth in [place] [address] the Medical morning Branch and 1 tablet in the evening. Take with meals. busPIRone 2023-0 Yes 10mg Take 1 Univer s 10 mg 3-18 tablet by ity of tablet 12:44: mouth in [place] [address] the Medical morning Branch and 1 tablet in the evening. busPIRone 2023-0 Yes 30mg Take 1 Univer s 30 mg 3-18 tablet by ity of tablet 12:44: mouth in [place] [address] the Medical morning Branch and 1 tablet in the evening. KCL 20 mEq 2023-0 Yes Take by Univ ers tablet 3-18 mouth 2 ity of 12:44: (two) [place] 03 times Medical daily. Branch benazepriL 2023-0 [...] 03 the Medical morning. Branch albuterol Yes [id number] 2{puff} Inhale 2 Univers 90 3-18 Puffs ity of mcg/actuati 00:00: every 6 [place] on inhaler 00 (six) Medical hours as Branch needed for Wheezing or Shortness of Breath. albuterol 0 Yes [id number] 2{puff} Inhale 2 Univers 90 3-18 Puffs ity of mcg/actuati 00:00: every 6 [place] on inhaler 00 (six) Medical hours as Branch needed for Wheezing or Shortness of Breath. albuterol 2022-0 Yes [id number] 2{puff} Inhale 2 Univers 90 3-18 Puffs ity of mcg/actuati 00:00: every 6 [place] on inhaler 00 (six) Medical hours as Branch needed for Wheezing or Shortness of Breath. albuterol 2022-0 Yes [id number] 2{puff} Inhale 2 Univers 90 3-18 Puffs ity of mcg/actuati 00:00: every 6 [place] on inhaler 00 (six) Medical hours as Branch needed for Wheezing or Shortness of Breath. albuterol Yes [id number] 2{puff} Inhale 2 Univers 90 3-18 Puffs ity of mcg/actuati 00:00: every 6 [place] on inhaler 00 (six) Medical hours as Branch needed for Wheezing or Shortness of Breath. albuterol Yes [id number] 2{puff} Inhale 2 Univers 90 3-18 Puffs ity of mcg/actuati 00:00: every 6 [place] on inhaler 00 (six) Medical hours as Branch needed for Wheezing or Shortness of Breath. albuterol Yes [id number] 2{puff} Inhale 2 Univers 90 3-18 Puffs ity of mcg/actuati 00:00: every 6 [place] on inhaler 00 (six) Medical hours as Branch needed for Wheezing or Shortness of Breath. albuterol Yes [id number] 2{puff} Inhale 2 Univers 90 3-18 Puffs ity of mcg/actuati 00:00: every 6 [place] on inhaler 00 (six) Medical hours as Branch needed for Wheezing or Shortness of Breath. albuterol Yes [id number] 2{puff} Inhale 2 Univers 90 3-18 Puffs ity of mcg/actuati 00:00: every 6 [place] on inhaler 00 (six) Medical hours as Branch needed for Wheezing or Shortness of Breath. albuterol Yes [id number] 2{puff} Inhale 2 Univers 90 3-18 Puffs ity of mcg/actuati 00:00: every 6 [place] on inhaler 00 (six) Medical hours as Branch needed for Wheezing or Shortness of Breath. albuterol Yes [id number] 2{puff} Inhale 2 Univers 90 3-18 Puffs ity of mcg/actuati 00:00: every 6 [place] on inhaler 00 (six) Medical hours as Branch needed for Wheezing or Shortness of Breath. albuterol Yes [id number] 2{puff} Inhale 2 Univers 90 3-18 Puffs ity of mcg/actuati 00:00: every 6 [place] on inhaler 00 (six) Medical hours as Branch needed for Wheezing or Shortness of Breath. albuterol No [id number] 2{puff} Inhale 2 Univers 90 3-18 05-03 Puffs ity of mcg/actuati 00:00: 00:00 every 6 [place] on inhaler 00 :00 (six) Medical hours as Branch needed for Wheezing or Shortness of Breath. tiotropium No [id number] 18ug Inhale 1 Univers 18 mcg 3-18 04-18 capsule in ity of inhalation 00:00: 04:59 the [place] 00 :00 morning Medical for 30 Branch days. tiotropium No [id number] 18ug Inhale 1 Univers 18 mcg 3-18 04-18 capsule in ity of inhalation 00:00: 04:59 the [place] 00 :00 morning Medical for 30 Branch days. tiotropium No [id number] 18ug Inhale 1 Univers 18 mcg 3-18 04-18 capsule in ity of inhalation 00:00: 04:59 the [place] 00 :00 morning Medical for 30 Branch days. tiotropium 2022- No [id number] 18ug Inhale 1 Univers 18 mcg 3-18 04-18 capsule in ity of inhalation 00:00: 04:59 the [place] 00 :00 morning Medical for 30 Branch days. tiotropium 2022- No [id number] 18ug Inhale 1 Univers 18 mcg 3-18 04-18 capsule in ity of inhalation 00:00: 04:59 the [place] 00 :00 morning Medical for 30 Branch days. tiotropium No [id number] 18ug Inhale 1 Univers 18 mcg 3-18 04-18 capsule in ity of inhalation 00:00: 04:59 the [place] 00 :00 morning Medical for 30 Branch days. tiotropium No [id number] 18ug Inhale 1 Univers 18 mcg 3-18 04-18 capsule in ity of inhalation 00:00: 04:59 the [place] 00 :00 morning Medical for 30 Branch days. tiotropium 2022- No [id number] 18ug Inhale 1 Univers 18 mcg 3-18 -18 capsule in ity of inhalation 00:00: 04:59 the [place] 00 :00 morning Medical for 30 Branch days. doxycycline 2022-2022- No [id number] 100mg Take 1 Univers hyclate 100 3-18 03-24 capsule by i ty of mg capsule 00:00: 04:59 mouth [place] 00 :00 every 12 Medical (twelve) Branch hours for 5 days. predniSONE 2022-0 2022- No [id number] 40mg Take 2 Univers 20 mg 3-18 03-24 tablets by ity of tablet 00:00: 04:59 mouth in [place] 00 :00 the Medical morning Branch for 5 days. doxycycline 2022-2022- No [id number] 100mg Take 1 Univers hyclate 100 3-18 03-24 capsule by i ty of mg capsule 00:00: 04:59 mouth [place] 00 :00 every 12 Medical (twelve) Branch hours for 5 days. predniSONE 2022-0 2022- No [id number] 40mg Take 2 Univers 20 mg 3-18 [...] mg 00 :59 First dose Medical on [facility] Branch 12/02/22 at 1700, Until Discontinu ed, Routine methylPREDN Yes 40mg 40 mg, Univ ers ISolone sod -16 Intravenou it y of succ 19:00: s, Q8H, [place] (SOLU-MEDRO 00 First dose Me dical L (PF)) on [facility] Branch injection 12/02/22 at 40 mg [...] mg 0530, MICHAEL Nebulizer & 0 Yes [id number] Use as Univers Compressor 3-15 directed ity o f For Neb 00:00: Medical Branch albuterol 2022-0 Yes [id number] 2{puff} Inhale 2 Univers 90 3-15 Puffs ity of mcg/actuati 00:00: every 4 [place] on inhaler 00 (four) Medical hours as Branch needed for Wheezing or Shortness of Breath. Nebulizer & 0 Yes [id number] Use as Univers Compressor 3-15 directed ity o f For Neb 00:00: Medical Branch albuterol 2022-0 Yes [id number] 2{puff} Inhale 2 Univers 90 3-15 Puffs ity of mcg/actuati 00:00: every 4 [place] on inhaler 00 (four) Medical hours as Branch needed for Wheezing or Shortness of Breath. Nebulizer & 2022-0 Yes [id number] Use as Univers Compressor 3-15 directed ity o f For Neb 00:00: Medical Branch albuterol 0 Yes [id number] 2{puff} Inhale 2 Univers 90 3-15 Puffs ity of mcg/actuati 00:00: every 4 [place] on inhaler 00 (four) Medical hours as Branch needed for Wheezing or Shortness of Breath. Nebulizer & 2022-0 Yes [id number] Use as Univers Compressor 3-15 directed ity o f For Neb 00:00: Medical Branch Nebulizer & 2022-0 Yes [id number] Use as Univers Compressor 3-15 directed ity o f For Neb 00:00: Medical Branch Nebulizer & 2022-0 Yes [id number] Use as Univers Compressor 3-15 directed ity o f For Neb 00:00: Medical Branch Nebulizer & 2022-0 Yes [id number] Use as Univers Compressor 3-15 directed ity o f For Neb 00:00: Medical Branch Nebulizer & 2022-0 Yes [id number] Use as Univers Compressor 3-15 directed ity o f For Neb 00:00: Medical Branch Nebulizer & 2022-0 Yes [id number] Use as Univers Compressor 3-15 directed ity o f For Neb 00:00: Medical Branch Nebulizer & 2022-0 Yes [id number] Use as Univers Compressor 3-15 directed ity o f For Neb 00:00: Medical Branch Nebulizer & 2022-0 Yes [id number] Use as Univers Compressor 3-15 directed ity o f For Neb 00:00: Medical Branch Nebulizer & 2022-0 Yes [id number] Use as Univers Compressor 3-15 directed ity o f For Neb 00:00: Medical Branch Nebulizer & 2022-0 Yes [id number] Use as Univers Compressor 3-15 directed ity o f For Neb 00:00: Medical Branch Nebulizer & 2022-0 Yes [id number] Use as Univers Compressor 3-15 directed ity o f For Neb 00:00: Medical Branch Nebulizer & 3-0 Yes [id number] Use as Univers Compressor 3-15 directed ity o f For Neb 00:00: Medical Branch Nebulizer & 2022-0 Yes [id number] Use as Univers Compressor 3-15 directed ity o f For Neb 00:00: Medical Branch Nebulizer & 3-0 Yes [id number] Use as Univers Compressor 3-15 directed ity o f For Neb 00:00: Medical Branch Nebulizer & 3-0 Yes [id number] Use as Univers Compressor 3-15 directed ity o f For Neb 00:00: Medical Branch Nebulizer & 2022-0 Yes [id number] Use as Univers Compressor 3-15 directed ity o f For Neb 00:00: Medical Branch Nebulizer & 2022-0 Yes [id number] Use as Univers Compressor 3-15 directed ity o f For Neb 00:00: Medical Branch Nebulizer & 2022-0 Yes [id number] Use as Univers Compressor 3-15 directed ity o f For Neb 00:00: Medical Branch Nebulizer & 2022-0 Yes [id number] Use as Univers Compressor 3-15 directed ity o f For Neb 00:00: Medical Branch Nebulizer & 2022-0 Yes [id number] Use as Univers Compressor 3-15 directed ity o f For Neb 00:00: Medical Branch Nebulizer & 2022-0 Yes [id number] Use as Univers Compressor 3-15 directed ity o f For Neb 00:00: Medical Branch Nebulizer & 3-0 Yes [id number] Use as Univers Compressor 3-15 directed ity o f For Neb 00:00: Medical Branch Nebulizer & 2022-0 Yes [id number] Use as Univers Compressor 3-15 directed ity o f For Neb 00:00: Medical Branch Nebulizer & 3-0 Yes [id number] Use as Univers Compressor 3-15 directed ity o f For Neb 00:00: Medical Branch Nebulizer & 3-0 Yes [id number] Use as Univers Compressor 3-15 directed ity o f For Neb 00:00: Medical Branch Nebulizer & 2022-0 Yes [id number] Use as Univers Compressor 3-15 directed ity o f For Neb 00:00: Medical Branch Nebulizer & 2022-0 Yes [id number] Use as Univers Compressor 3-15 directed ity o f For Neb 00:00: Medical Branch Nebulizer & 2022-0 Yes [id number] Use as Univers Compressor 3-15 directed ity o f For Neb 00:00: Medical Branch Nebulizer & 2022-0 Yes [id number] Use as Univers Compressor 3-15 directed ity o f For Neb 00:00: Medical Branch Nebulizer & 2022-0 Yes [id number] Use as Univers Compressor 3-15 directed ity o f For Neb 00:00: Medical Branch Nebulizer & 2022-0 Yes [id number] Use as Univers Compressor 3-15 directed ity o f For Neb 00:00: Medical Branch Nebulizer & 2022-0 Yes [id number] Use as Univers Compressor 3-15 directed ity o f For Neb 00:00: Medical Branch Nebulizer & 2022-0 Yes [id number] Use as Univers Compressor 3-15 directed ity o f For Neb 00:00: Medical Branch Nebulizer & 2022-0 Yes [id number] Use as Univers Compressor 3-15 directed ity o f For Neb 00:00: Medical Branch Nebulizer & 2022-0 Yes [id number] Use as Univers Compressor 3-15 directed ity o f For Neb 00:00: Medical Branch Nebulizer & 2022-0 Yes [id number] Use as Univers Compressor 3-15 directed ity o f For Neb 00:00: Medical Branch Nebulizer & 2022-0 Yes [id number] Use as Univers Compressor 3-15 directed ity o f For Neb 00:00: Medical Branch Nebulizer & 2022-0 Yes [id number] Use as Univers Compressor 3-15 directed ity o f For Neb 00:00: Medical Branch albuterol 2022-0 Yes [id number] 2{puff} Inhale 2 Univers 90 3-15 Puffs ity of mcg/actuati 00:00: every 4 [place] on inhaler 00 (four) Medical hours as Branch needed for Wheezing or Shortness of Breath. predniSONE 2022-0 Yes [id number] 50mg Take 1 Univers 50 mg 3-15 tablet by ity of tablet 00:00: mouth in [place] 00 the Medical morning. Branch Nebulizer & 2022-0 Yes [id number] Use as Univers Compressor 3-15 directed ity o f For Neb 00:00: [place] Kami 00 Medical Branch albuterol 2022-0 Yes [id number] 2{puff} Inhale 2 Univers 90 3-15 Puffs ity of mcg/actuati 00:00: every 4 [place] on inhaler 00 (four) Medical hours as Branch needed for Wheezing or Shortness of Breath. albuterol 2022-0 2022- No [id number] 2{puff} Inhale 2 Univers 90 3-15 03-26 Puffs ity of mcg/actuati 00:00: 00:00 every 4 [place] on inhaler 00 :00 (four) Medical hours as Branch needed for Wheezing or Shortness of Breath. predniSONE 2022-0 2022- No [id number] 50mg Take 1 Univers 50 mg 3-15 03-18 tablet by ity of tablet 00:00: 00:00 mouth in [place] 00 :00 the Medical morning. Branch omeprazole 2022-2022- No 40mg Take 40 mg Univers 40 mg -12 -12 by mouth ity of capsule 14:11: 00:00 daily. [place] 21 :00 Medical Branch carvediloL 2022-0 2022- [...] [place] 21 :00 Medical Branch hydroCHLORO 2022-0 202- No 25mg Take 25 mg Univers thiazide 25 11-28 03-12 by mouth ity of mg tablet 14:11: 00:00 daily. [place] : [facility] Branch levalbutero 2022-0 Yes .63mg 0.63 mg, U nivers l (XOPENEX) 3-12 Inhalation it y of nebulizer 13:00: , TID, [place] solution 00 First dose Medic al 0.63 mg (after Branch last modificati on) on [place] 11/28/22 at 0800, Until Discontinu ed, Routine ipratropium 2022-0 Yes .5mg 0.5 mg, Uni vers (ATROVENT) 3- Inhalation ity of 0.02 % 20:00: , TID, [place] nebulizer 00 First dose Medi lucho solution (after Branch 0.5 mg last modificati on) on [facility] 11/27/22 at 1400, Until Discontinu ed, Routine nicotine 2022-0 Yes 1{patch 1 Patch, [facility] (NICODERM) 3 } Topical, ity o f 21 mg/24 hr 17:30: Administer [place] patch 1 00 over 24 Medical Patch Hours, Branch Q24H, First dose on [facility] 11/27/22 at 1130, Until Discontinu ed, Routine busPIRone 2022-0 Yes 10mg 10 mg, Univer s (BUSPAR) 3-11 Oral, TID, ity o f tablet 10 16:15: First dose [place] mg 00 on [facility] Medical 11/27/22 at Branch 1015, Until Discontinu ed, Routine aspirin 2022-0 Yes 81mg 81 mg, Univers chewable 11-27 Oral, ity of tablet 81 16:15: DAILY, [place] mg 00 First dose Medical on [facility] Branch 11/27/22 at 1015, Until Discontinu ed, Routine foLIC acid 2022-0 Yes 1mg 1 mg, Univer s (FOLATE) 3-11 Oral, ity of tablet 1 mg 15:00: DAILY, [place] 00 First dose Medical on [facility] Branch 11/27/22 at 0900, Until Discontinu ed, Routine rivaroxaban 2022-0 Yes 20mg 20 mg, Univ ers (XARELTO) 3-11 Oral, ity of tablet 20 15:00: DAILY, [place] mg 00 First dose Medical on [facility] Branch 11/27/22 at 0900, Until Discontinu ed, Routine omeprazole 0 Yes 40mg 40 mg, Unive rs (PRILOSEC) 11-27 Oral, ity of capsule 40 15:00: DAILY, [place] mg 00 First dose Medical on [facility] Branch 11/27/22 at 0900, Until Discontinu ed predniSONE 2022- No 40mg 40 mg, Univ ers (DELTASONE) 11-2716 Oral, ity of tablet 40 15:00: 13:59 DAILY, 5 [place] mg 00 :00 doses, Medical First dose Branch on [facility] 11/27/22 at 0900, Last dose on Tue12/01/22 at 0900, Routine carvediloL Yes 25mg 25 mg, Unive rs (COREG) 11-27 Oral, BID ity of tablet 25 14:00: MEALS, [place] mg 00 First dose Medical on [facility] 11/27/22 at 0800, Until Discontinu ed, Routine levalbutero 2022- No .31mg 0.31 mg, Univers l (XOPENEX) 11-2712 Inhalation i ty of nebulizer 14:00: 12:33 , TID, [place] solution 00 :58 First dose Medic al 0.31 mg on [facility] Branch 11/27/22 at 0800, Until Discontinu ed, Routine ipratropium 2022- No .5mg 0.5 mg, [facility] (ATROVENT) 11-27 Inhalation it y of 0.02 % 14:00: 18:48 , QID, [place] nebulizer 00 :56 First dose Medi lucho solution on [facility] Branch 0.5 mg 11/27/22 at 0800, Until Discontinu ed, Routine thiamine Yes 100mg 100 mg, Unive rs (VITAMIN 11-27 Oral, ity of B1) tablet 08:30: DAILY, [place] 100 mg 00 First dose Medical (after Branch last modificati on) on [facility] 11/27/22 at 0230, Until Discontinu ed, [...] at 2000, Routine thiamine 2022-0 2022- No [id number] 100mg Take 1 Univers 100 mg 2-24 -27 tablet by ity of tablet 00:00: 04:59 mouth in [place] 00 :00 the [facility] for 30 days. thiamine 2022-0 202- No [id number] 100mg Take 1 Univers 100 mg 2-24 -27 tablet by ity of tablet 00:00: 04:59 mouth in [place] 00 :00 [facility] for 30 days. thiamine 202-0 202- No [id number] 100mg Take 1 Univers 100 mg 2-24 03-27 tablet by ity of tablet 00:00: 04:59 mouth in [place] 00 :00 [facility] for 30 days. thiamine 2023-0 202- No [id number] 100mg Take 1 Univers 100 mg 2-24 03-27 tablet by ity of tablet 00:00: 04:59 mouth in [place] 00 :00 [facility] for 30 days. thiamine 2023-0 2023- No [id number] 100mg Take 1 Univers 100 mg 2-24 03-27 tablet by ity of tablet 00:00: 04:59 mouth in [place] 00 :00 the Medical [facility] Branch for 30 days. thiamine 2023-0 2023- No [id number] 100mg Take 1 Univers 100 mg 2-24 -12 tablet by ity of tablet 00:00: 00:00 mouth in [place] 00 :00 the [facility] Branch for 30 days. thiamine 2023-0 Yes 100mg 100 mg, Unive rs (VITAMIN 2-23 Oral, ity of B1) tablet 15:00: DAILY, [place] 100 mg 00 First dose Medical on [facility] Branch 11/11/22 at 0900, Until Discontinu ed, Routine omeprazole 2022-0 Yes 40mg Take 40 mg U nivers 40 mg 2-23 by mouth ity of capsule 13:41: daily. [address] carvediloL 3-0 Yes 25mg Take 25 mg U nivers 25 mg 2-23 by mouth 2 ity of tablet 13:41: (two) [place] [address] times Medical daily with Branch meals. busPIRone 3-0 Yes 30mg Take 30 mg [facility] 30 mg 2-23 by mouth 2 ity of tablet 13:41: (two) [place] [address] times Medical daily. Branch benazepriL 3-0 Yes 10mg Take 10 mg U nivers 10 mg 2-23 by mouth ity of tablet 13:41: daily. [address] hydroCHLORO 3-0 Yes 25mg Take 25 mg Univers thiazide 25 2-23 by mouth ity of mg tablet 13:41: daily. [address] omeprazole 3-0 Yes 40mg Take 40 mg U nivers 40 mg 2-23 by mouth ity of capsule 13:41: daily. [address] carvediloL 3-0 Yes 25mg Take 25 mg U nivers 25 mg 2-23 by mouth 2 ity of tablet 13:41: (two) [place] [address] times Medical daily with Branch meals. busPIRone 2023-0 Yes 30mg Take 30 mg [facility] 30 mg 2-23 by mouth 2 ity of tablet 13:41: (two) [place] [address] times Medical daily. Branch benazepriL 2023-0 Yes 10mg Take 10 mg U nivers 10 mg 2-23 by mouth ity of tablet 13:41: daily. [address] hydroCHLORO 2023-0 Yes 25mg Take 25 mg Univers thiazide 25 2-23 by mouth ity of mg tablet 13:41: daily. [address] omeprazole 2023-0 Yes 40mg Take 40 mg U nivers 40 mg 2-23 by mouth ity of capsule 13:41: daily. [address] carvediloL 2023-0 Yes 25mg Take 25 mg U nivers 25 mg 2-23 by mouth 2 ity of tablet 13:41: (two) [place] [address] times Medical daily with Branch meals. busPIRone 2023-0 Yes 30mg Take 30 mg [facility] 30 mg 2-23 by mouth 2 ity of tablet 13:41: (two) [place] [address] times Medical daily. Branch benazepriL 3-0 Yes 10mg Take 10 mg U nivers 10 mg 2-23 by mouth ity of tablet 13:41: daily. [address] hydroCHLORO 3-0 Yes 25mg Take 25 mg Univers thiazide 25 2-23 by mouth ity of mg tablet 13:41: daily. [address] omeprazole 3-0 Yes 40mg Take 40 mg U nivers 40 mg 2-23 by mouth ity of capsule 13:41: daily. [address] carvediloL 3-0 Yes 25mg Take 25 mg U nivers 25 mg 2-23 by mouth 2 ity of tablet 13:41: (two) [address] Medical daily with Branch meals. busPIRone 2023-0 Yes 30mg Take 30 mg [facility] 30 mg 2-23 by mouth 2 ity of tablet 13:41: (two) [place] [address] times Medical daily. Branch benazepriL 3-0 Yes 10mg Take 10 mg U nivers 10 mg 2-23 by mouth ity of tablet 13:41: daily. [address] hydroCHLORO 2023-0 Yes 25mg Take 25 mg Univers thiazide 25 2-23 by mouth ity of mg tablet 13:41: daily. [address] omeprazole 2023-0 Yes 40mg Take 40 mg U nivers 40 mg 2-23 by mouth ity of capsule 13:41: daily. [address] carvediloL 2023-0 Yes 25mg Take 25 mg U nivers 25 mg 2-23 by mouth 2 ity of tablet 13:41: (two) [place] [address] times Medical daily with Branch meals. busPIRone 2022-0 Yes 30mg Take 30 mg [facility] 30 mg 2-23 by mouth 2 ity of tablet 13:41: (two) [place] [address] times Medical daily. Branch benazepriL 2022-0 Yes 10mg Take 10 mg U nivers 10 mg 2-23 by mouth ity of tablet 13:41: daily. [address] hydroCHLORO 2022-0 Yes 25mg Take 25 mg Univers thiazide 25 2-23 by mouth ity of mg tablet 13:41: daily. [address] foLIC acid 0 2022- No 1mg 1 mg, Unive rs (FOLATE) 2-11 11- Oral, ity of tablet 1 mg 00:15: 00:26 ONCE, 1 [place] 00 :00 dose, On Medical Wed Branch 11/10/22 at 1815, Routine benzocaine- 2022-0 Yes [id number] 1{lozen Take 1 [facility] menthoL 2-23 ge} Lozenge by ity of lozenge 00:00: mouth [place] [address] every 4 Medical (four) Branch hours as needed for Sore throat. budesonide- 2022-0 Yes [id number] 2{puff} Inhale 2 [facility] formoteroL 2-23 Puffs in ity o f 80-4.5 00:00: the [place] mcg/actuati 00 morning Medic al on inhaler and 2 Branch Puffs in the evening. benzocaine- 2022-0 Yes [id number] 1{lozen Take 1 [facility] menthoL 2-23 ge} Lozenge by ity of lozenge 00:00: mouth [place] 00 every 4 Medical (four) Branch hours as needed for Sore throat. budesonide- 2022-0 Yes [id number] 2{puff} Inhale 2 Univers formoteroL 2-23 Puffs in ity o f 80-4.5 00:00: the [place] mcg/actuati 00 morning Medic al on inhaler and 2 Branch Puffs in the evening. benzocaine- 2022-0 Yes [id number] 1{lozen Take 1 [facility] menthoL 2-23 ge} Lozenge by ity of lozenge 00:00: mouth [place] [address] every 4 Medical (four) Branch hours as needed for Sore throat. budesonide- 2022-0 Yes [id number] 2{puff} Inhale 2 Univers formoteroL 2-23 Puffs in ity of 80-4.5 00:00: the [place] mcg/actuati 00 morning Medic al on inhaler and 2 Branch Puffs in the evening. benzocaine- 2022-0 Yes [id number] 1{lozen Take 1 [facility] menthoL 2-23 ge} Lozenge by ity of lozenge 00:00: mouth [place] 00 every 4 Medical (four) Branch hours as needed for Sore throat. budesonide- 2022-0 Yes [id number] 2{puff} Inhale 2 Univers formoteroL 2-23 Puffs in ity o f 80-4.5 00:00: the [place] mcg/actuati 00 morning Medic al on inhaler and 2 Branch Puffs in the evening. benzocaine- 2022-0 Yes [id number] 1{lozen Take 1 [facility] menthoL 2-23 ge} Lozenge by ity of lozenge 00:00: mouth [place] 00 every 4 Medical (four) Branch hours as needed for Sore throat. budesonide- 2022-0 Yes [id number] 2{puff} Inhale 2 [facility] formoteroL 2-23 Puffs in ity o f 80-4.5 00:00: the [place] mcg/actuati 00 morning Medic al on inhaler and 2 Branch Puffs in the evening. benzocaine- 0 2022- No [id number] 1{lozen Take 1 [facility] menthoL 2-23 03-12 ge} Lozenge by ity o f lozenge 00:00: 00:00 mouth [place] 00 :00 every 4 Medical (four) Branch hours as needed for Sore throat. budesonide- 2022-0 2022- No [id number] 2{puff} Inhale 2 [facility] formoteroL 2-23 03-12 Puffs in ity of 80-4.5 00:00: 00:00 the [place] mcg/actuati 00 :00 morning Medic al on inhaler and 2 Branch Puffs in the evening. sodium 2022-0 2022- No [id number] 1g Take 1 Uni vers chloride 1 2-23 03-06 tablet by ity of gram tablet 00:00: 05:59 mouth in [place] 00 :00 the Medical morning Branch and 1 tablet at noon and 1 tablet in the evening. Take with meals. Do all this for 10 days. sodium 2023-0 202- No [id number] 1g Take 1 Uni vers chloride 1 11-11-06 tablet by ity of gram tablet 00:00: 05:59 mouth in [place] 00 :00 the [facility] morning Branch and 1 tablet at noon and 1 tablet in the evening. Take with meals. Do all this for 10 days. sodium 2023-0 2022- No [id number] 1g Take 1 Uni vers chloride 1 11-11-06 tablet by ity of gram tablet 00:00: 05:59 mouth in [place] 00 :00 the [facility] morning [place] and 1 tablet at noon and 1 tablet in the evening. Take with meals. Do all this for 10 days. sodium 2022-0 2022- No [id number] 1g Take 1 Uni vers chloride 1 11-11- tablet by ity of gram tablet 00:00: 05:59 mouth in [place] 00 :00 the [facility] morning [place] and 1 tablet at noon and 1 tablet in the evening. Take with meals. Do all this for 10 days. levoFLOXaci 3-0 2022- No [id number] 750mg Take 1 Univers n 750 mg 11-11- tablet by ity o f tablet 00:00: 05:59 mouth [place] 00 :00 every 24 Medical ([facility]) hours for 5 days. levoFLOXaci 2023-0 2022- No [id number] 750mg Take 1 Univers n 750 mg 11-11- tablet by ity o f tablet 00:00: 05:59 mouth [place] 00 :00 every 24 Medical ([facility] ur) hours for 5 days. predniSONE 2023-0 2023- No [id number] 40mg Take 2 Univers 20 mg 2-23 -27 tablets by ity of tablet 00:00: 05:59 mouth in [place] 00 :00 the [facility] for 3 days. predniSONE 2023-0 2023- No [id number] 40mg Take 2 Univers 20 mg 2-23 -27 tablets by ity of tablet 00:00: 05:59 mouth in [place] 00 :00 the [...] First dose [place] mg 00 on [facility] 11/09/22 at Branch 2000, Until Discontinu ed, Routine carvediloL 2022-0 Yes 25mg 25 mg, Unive rs (COREG) 2- Oral, BID ity of tablet 25 23:00: MEALS, [place] mg 00 First dose Medical on [facility] 11/09/22 at 1700, Until Discontinu ed, Routine ipratropium 2022-0 Yes .5mg 0.5 mg, Uni vers (ATROVENT) 2- Inhalation ity of 0.02 % 22:00: , Q4H, [place] nebulizer 00 First dose Medi lucho solution on [place] 0.5 mg 11/09/22 at 1600, Until Discontinu ed, Routine albuterol 2022-0 Yes 2.5mg 2.5 mg, Univ ers (PROVENTIL) 2- Inhalation it y of 2.5 mg /3 22:00: , Q4H, [place] mL (0.083 00 First dose Medi lucho %) on [facility] nebulizer 2/21/23 at solution 1600, 2.5 [...] solution 0145, STAT 2.5 mg cephALEXin Yes [id number] 500mg Take 1 Univers (KEFLEX) 9-03 capsule by ity o f 500 mg 00:00: mouth 4 [place] capsule 00 (four) Medical times Branch daily. cephALEXin Yes [id number] 500mg Take 1 Univers (KEFLEX) 05-22 capsule by ity o f 500 mg 00:00: mouth 4 [place] capsule 00 (four) Medical times [place] daily. cephALEXin 2022- No [id number] 500mg Take 1 Univers (KEFLEX) -11-11 capsule by ity of 500 mg 00:00: 00:00 mouth 4 [place] capsule 00 :00 (four) Medical times [place] daily. cefTRIAXone 2020- No 1000mg 1,000 mg, [...] mouth 2 ity of tablet 18:38: (two) [place] [address] times Medical daily with Branch meals. busPIRone 0 Yes 30mg Take 30 mg Un [place] 30 mg 3-26 by mouth 2 ity of tablet 18:38: (two) [place] [address] times Medical daily. Branch benazepriL 0 Yes 10mg Take 10 mg U nivers 10 mg 3-26 by mouth ity of tablet 18:38: daily. [address] hydroCHLORO 2020-0 Yes 25mg Take 25 mg Univers thiazide 25 3-26 by mouth ity of mg tablet 18:38: daily. [address] carvediloL 2020-0 Yes 25mg Take 25 mg U nivers 25 mg 3-26 by mouth 2 ity of tablet 18:38: (two) [place] [address] times Medical daily with Branch meals. busPIRone 2020-0 Yes 30mg Take 30 mg [place] 30 mg 3-26 by mouth 2 ity of tablet 18:38: (two) [place] [address] times Medical daily. Branch benazepriL 2020-0 Yes 10mg Take 10 mg U nivers 10 mg 3-26 by mouth ity of tablet 18:38: daily. [address] hydroCHLORO 2021-0 Yes 25mg Take 25 mg Univers thiazide 25 3-26 by mouth ity of mg tablet 18:38: daily. [address] carvediloL 2021-0 Yes 25mg Take 25 [...] by mouth ity of tablet 18:38: daily. [address] hydroCHLORO 1-0 Yes 25mg Take 25 mg Univers thiazide 25 3-26 by mouth ity of mg tablet 18:38: daily. [address] carvediloL 1-0 Yes 25mg Take 25 [...] by mouth ity of tablet 18:38: daily. [address] hydroCHLORO 1-0 Yes 25mg Take 25 mg Univers thiazide 25 3-26 by mouth ity of mg tablet 18:38: daily. [address] carvediloL 2021-0 Yes 25mg Take 25 mg U nivers 25 mg 3-26 by mouth 2 ity of tablet 18:38: (two) [place] [address] times Medical daily with Branch meals. busPIRone 2021-0 Yes 30mg Take 30 mg Un [place] 30 mg 3-26 by mouth 2 ity of tablet 18:38: (two) [place] 04 times Medical daily. Branch benazepriL 2021-0 Yes 10mg Take 10 mg U nivers 10 mg 3-26 by mouth ity of tablet 18:38: daily. [address] hydroCHLORO 2021-0 Yes 25mg Take 25 mg Univers thiazide 25 3-26 by mouth ity of mg tablet 18:38: daily. [address] carvediloL 2020-0 Yes 25mg Take 25 [...] by mouth ity of tablet 18:38: daily. [address] hydroCHLORO 2020-0 Yes 25mg Take 25 mg Univers thiazide 25 3-26 by mouth ity of mg tablet 18:38: daily. [address] carvediloL 2020-0 Yes 25mg Take 25 [...] by mouth ity of tablet 18:38: daily. [address] hydroCHLORO 2020-0 Yes 25mg Take 25 mg Univers thiazide 25 3-26 by mouth ity of mg tablet 18:38: daily. [address] carvediloL 2020-0 Yes 25mg Take 25 mg U nivers 25 mg 3-26 by mouth 2 ity of tablet 18:38: (two) [place] 04 times Medical daily with Branch meals. busPIRone 2021-0 Yes 30mg Take 30 mg Un igro 30 mg 3-26 by mouth 2 ity of tablet 18:38: (two) [place] 04 times Medical daily. Branch benazepriL 2021-0 Yes 10mg Take 10 mg U nivers 10 mg 3-26 by mouth ity of tablet 18:38: daily. [address] hydroCHLORO 1-0 Yes 25mg Take 25 mg Univers thiazide 25 3-26 by mouth ity of mg tablet 18:38: daily. [address] carvediloL 2021-0 Yes 25mg Take 25 mg U nivers 25 mg 3-26 by mouth 2 ity of tablet 18:38: (two) [place] times Medical daily with Branch meals. busPIRone 2021-0 Yes 30mg Take 30 mg Un gior 30 mg 3-26 by mouth 2 ity of tablet 18:38: (two) [place] [address] times Medical daily. Branch benazepriL 2021-0 Yes 10mg Take 10 mg U nivers 10 mg 3-26 by mouth ity of tablet 18:38: daily. [address] hydroCHLORO 2021-0 Yes 25mg Take 25 mg Univers thiazide 25 3-26 by mouth ity of mg tablet 18:38: daily. [address] carvediloL 2021-0 Yes 25mg Take 25 mg U nivers 25 mg 3-26 by mouth 2 ity of tablet 18:38: (two) [place] [address] times Medical daily with Branch meals. busPIRone 2021-0 Yes 30mg Take 30 mg Un [place] 30 mg 3-26 by mouth 2 ity of tablet 18:38: (two) [place] 04 times Medical daily. Branch benazepriL 2021-0 Yes 10mg Take 10 mg U nivers 10 mg 3-26 by mouth ity of tablet 18:38: daily. [address] hydroCHLORO 1-0 Yes 25mg Take 25 mg Univers thiazide 25 3-26 by mouth ity of mg tablet 18:38: daily. [address] carvediloL 1-0 Yes 25mg Take 25 mg U nivers 25 mg 3-26 by mouth 2 ity of tablet 18:38: (two) [place] [address] times Medical daily with Branch meals. busPIRone 2021-0 Yes 30mg Take 30 mg Un [place] 30 mg 3-26 by mouth 2 ity of tablet 18:38: (two) [place] times Medical daily. Branch benazepriL 2021-0 Yes 10mg Take 10 mg U nivers 10 mg 3-26 by mouth ity of tablet 18:38: daily. [address] hydroCHLORO 2021-0 Yes 25mg Take 25 mg Univers thiazide 25 3-26 by mouth ity of mg tablet 18:38: daily. [address] carvediloL 2021-0 Yes 25mg Take 25 mg U nivers 25 mg 3-26 by mouth 2 ity of tablet 18:38: (two) [place] [address] times Medical daily with Branch meals. busPIRone 2021-0 Yes 30mg Take 30 mg Un [place] 30 mg 3-26 by mouth 2 ity of tablet 18:38: (two) [place] [address] times Medical daily. Branch benazepriL 1-0 Yes 10mg Take 10 mg U nivers 10 mg 3-26 by mouth ity of tablet 18:38: daily. [address] hydroCHLORO 2020-0 Yes 25mg Take 25 mg Univers thiazide 25 3-26 by mouth ity of mg tablet 18:38: daily. [address] carvediloL 1-0 Yes 25mg Take 25 mg U nivers 25 mg 3-26 by mouth 2 ity of tablet 18:38: (two) [place] [address] times Medical daily with Branch meals. busPIRone 1-0 Yes 30mg Take 30 mg [place] 30 mg 3-26 by mouth 2 ity of tablet 18:38: (two) [place] [address] times Medical daily. Branch benazepriL 1-0 Yes 10mg Take 10 mg U nivers 10 mg 3-26 by mouth ity of tablet 18:38: daily. [address] hydroCHLORO 2020-0 Yes 25mg Take 25 mg Univers thiazide 25 3-26 by mouth ity of mg tablet 18:38: daily. [address] carvediloL 1-0 Yes 25mg Take 25 mg U nivers 25 mg 3-26 by mouth 2 ity of tablet 18:38: (two) [place] [address] times Medical daily with Branch meals. busPIRone 2021-0 Yes 30mg Take 30 mg [place] 30 mg 3-26 by mouth 2 ity of tablet 18:38: (two) [place] [address] times Medical daily. Branch benazepriL 2021-0 Yes 10mg Take 10 mg U nivers 10 mg 3-26 by mouth ity of tablet 18:38: daily. [address] hydroCHLORO 1-0 Yes 25mg Take 25 mg Univers thiazide 25 3-26 by mouth ity of mg tablet 18:38: daily. [address] carvediloL 1-0 Yes 25mg Take 25 mg U nivers 25 mg 12-12 by mouth 2 ity of tablet 18:38: (two) [place] 04 times Medical daily with Branch meals. busPIRone Yes 30mg Take 30 mg Un igor 30 mg 12-12 by mouth 2 ity of tablet 18:38: (two) [place] 04 times Medical daily. Branch benazepriL Yes 10mg Take 10 mg U nivers 10 mg 12-12 by mouth ity of tablet 18:38: daily. [address] hydroCHLORO Yes 25mg Take 25 mg Univers thiazide 25 12-12 by mouth ity of mg tablet 18:38: daily. [address] iohexol 2020- No [id number] 120mL 120 mL, Univers (OMNIPAQUE 12-12 Intravenou it y of 350 17:30: 17:21 s, ONCE, 1 [place] BULK-150 00 :00 dose, Fri Medica l mL) 12/12/20 at [place] injection 1230, 120 mL Routine aspirin 81 2020- No 81mg Take 81 mg Univers mg EC 12-12 by mouth ity of tablet 16:57: 00:00 daily. [place] 40 :00 [facility] Branch varenicline 2020- No 1mg Take 1 mg Univers (CHANTIX) 1 12-12 by mouth 2 i ty of mg tablet 16:57: 00:00 (two) [place] 18 :00 times Medical daily. Branch predniSONE 2020- No 20mg Take 20 mg Univers 20 mg 12-12 by mouth ity of tablet 16:57: 00:00 daily. [place] 12 :00 [facility] Branch fluticasone 2020- No 1{puff} Inhale 1 Univers -umeclidin- 12-12 Puff ity of vilanter 16:56: 00:00 daily. [place] (TRELEGY 46 :00 Medical ELLIPTA) Branch 100-62.5-25 mcg DsDv cefpodoxime Yes [id number] 100mg Take 1 Univers 100 mg 12-12 tablet by ity of tablet 00:00: mouth 2 [place] 00 (two) Medical times Branch daily. cefpodoxime Yes [id number] 100mg Take 1 Univers 100 mg 3-26 tablet by ity of tablet 00:00: mouth (two) Medical times Branch daily. cefpodoxime 2021-0 Yes [id number] 100mg Take 1 Univers 100 mg 3-26 tablet by ity of tablet 00:00: mouth (two) Medical times Branch daily. cefpodoxime 2021-0 Yes [id number] 100mg Take 1 Univers 100 mg 3-26 tablet by ity of tablet 00:00: mouth [place] (two) Medical times Branch daily. cefpodoxime 2021-0 Yes [id number] 100mg Take 1 Univers 100 mg 3-26 tablet by ity of tablet 00:00: mouth [place] (two) Medical times Branch daily. cefpodoxime 2021-0 Yes [id number] 100mg Take 1 Univers 100 mg 3-26 tablet by ity of tablet 00:00: mouth [place] (two) Medical times Branch daily. cefpodoxime 2021-0 Yes [id number] 100mg Take 1 Univers 100 mg 3-26 tablet by ity of tablet 00:00: mouth [place] (two) Medical times Branch daily. cefpodoxime 2021-0 Yes [id number] 100mg Take 1 Univers 100 mg 3-26 tablet by ity of tablet 00:00: mouth [place] (two) Medical times Branch daily. cefpodoxime 2021-0 Yes [id number] 100mg Take 1 Univers 100 mg 3-26 tablet by ity of tablet 00:00: mouth [place] (two) Medical times Branch daily. cefpodoxime 2021-0 Yes [id number] 100mg Take 1 Univers 100 mg 3-26 tablet by ity of tablet 00:00: mouth [place] (two) Medical times Branch daily. cefpodoxime 2021-0 Yes [id number] 100mg Take 1 Univers 100 mg 3-26 tablet by ity of tablet 00:00: mouth [place] (two) Medical times Branch daily. cefpodoxime 2021-0 Yes [id number] 100mg Take 1 Univers 100 mg 3-26 tablet by ity of tablet 00:00: mouth [place] (two) Medical times Branch daily. cefpodoxime 2021-0 Yes [id number] 100mg Take 1 Univers 100 mg 3-26 tablet by ity of tablet 00:00: mouth 2 [place] 00 (two) Medical times Branch daily. cefpodoxime 2020-0 Yes [id number] 100mg Take 1 Univers 100 mg 3-26 tablet by ity of tablet 00:00: mouth 2 [place] 00 (two) Medical times Branch daily. cefpodoxime 2020-0 Yes [id number] 100mg Take 1 Univers 100 mg 3-26 tablet by ity of tablet 00:00: mouth 2 [place] 00 (two) Medical times Branch daily. cefpodoxime 2020-0 3- No [id number] 100mg Take 1 Univers 100 mg 3-26 - tablet by ity of tablet 00:00: 00:00 mouth 2 [place] 00 :00 (two) Medical times Branch daily. cefpodoxime 2020-0 1- No [id number] 100mg Take 1 Univers 100 mg 3-26 [...] tablet -28 ity of 00:00: [place] 00 Medical [...] Univers mg tablet 10-16 ity of 00:00: [place] [address] Medical Branch XARELTO 15 2020-0 Yes Univers mg tablet 10-16 ity of 00:00: [place] [address] Medical Branch XARELTO 15 2020-0 Yes Univers mg tablet 10-16 ity of 00:00: [place] [address] Medical Branch XARELTO 15 2020-0 Yes Univers mg tablet 10-16 ity of 00:00: [place] [address] Medical Branch XARELTO 15 2020-0 Yes Univers mg tablet 10-16 ity of 00:00: [place] [address] Medical Branch XARELTO 15 2020-0 Yes Univers mg tablet 10-16 ity of 00:00: [place] [address] Medical Branch XARELTO 15 2020-0 Yes Univers mg tablet 10-16 ity of 00:00: [place] [address] Medical Branch XARELTO 15 2020-0 2023- No Univer s mg tablet 10-16-12 ity of 00:00: 00:00 [place] 00 :00 [facility] Branch omeprazole 2019- Yes 40mg Take 40 mg U nivers 40 mg 2-10 by mouth ity of capsule 00:11: daily. [address] omeprazole 2018- Yes 40mg Take 40 mg U nivers 40 mg 2-10 by mouth ity of capsule 00:11: daily. [address] varenicline 2018- Yes 1mg Take 1 mg U nivers (CHANTIX) 1 2-10 by mouth 2 it y of mg tablet 00:11: (two) [place] [address] times Medical daily. Branch predniSONE 2018- Yes 20mg Take 20 mg U nivers 20 mg 2-10 by mouth ity of tablet 00:11: daily. [address] omeprazole 2018-09 Yes 40mg Take 40 mg U nivers 40 mg 2-10 by mouth ity of capsule 00:11: daily. [address] fluticasone 2018-09 Yes 1{puff} Inhale 1 Univers -umeclidin- 2-10 Puff ity of vilanter 00:11: daily. [address]) Branch 100-62.5-25 mcg DsDv aspirin 81 2018-09 Yes 81mg Take 81 mg U nivers mg EC 2-10 by mouth ity of tablet 00:11: daily. [address] varenicline 2018-09 Yes 1mg Take 1 mg U nivers (CHANTIX) 1 2-10 by mouth 2 it y of mg tablet 00:11: (two) [address] daily. Branch predniSONE 2018-09 Yes 20mg Take 20 mg U nivers 20 mg 2-10 by mouth ity of tablet 00:11: daily. [address] omeprazole 2018-09 Yes 40mg Take 40 mg U nivers 40 mg 2-10 by mouth ity of capsule 00:11: daily. [address] fluticasone 2018-09 Yes 1{puff} Inhale 1 Univers -umeclidin- 2-10 Puff ity of vilanter 00:11: daily. [address]) Branch 100-62.5-25 mcg DsDv aspirin 81 2018-09 Yes 81mg Take 81 mg U nivers mg EC 2-10 by mouth ity of tablet 00:11: daily. [address] varenicline 2018-09 Yes 1mg Take 1 mg U nivers (CHANTIX) 1 2-10 by mouth 2 it y of mg tablet 00:11: (two) [address] daily. Branch predniSONE 2018- Yes 20mg Take 20 mg U nivers 20 mg 2-10 by mouth ity of tablet 00:11: daily. [address] omeprazole 2018- Yes 40mg Take 40 mg U nivers 40 mg 2-10 by mouth ity of capsule 00:11: daily. [address] fluticasone 2018- Yes 1{puff} Inhale 1 Univers -umeclidin- 2-10 Puff ity of vilanter 00:11: daily. [address]) Branch 100-62.5-25 mcg DsDv aspirin 81 2018-09 Yes 81mg Take 81 mg U nivers mg EC 2-10 by mouth ity of tablet 00:11: daily. [address] varenicline 2018-09 Yes 1mg Take 1 mg U nivers (CHANTIX) 1 2-10 by mouth 2 it y of mg tablet 00:11: (two) [address] daily. Branch predniSONE 2018-09 Yes 20mg Take 20 mg U nivers 20 mg 2-10 by mouth ity of tablet 00:11: daily. [address] omeprazole 2018-09 Yes 40mg Take 40 mg U nivers 40 mg 2-10 by mouth ity of capsule 00:11: daily. [address] fluticasone 2018-09 Yes 1{puff} Inhale 1 Univers -umeclidin- 2-10 Puff ity of vilanter 00:11: daily. [address]) Branch 10062.5-25 mcg DsDv aspirin 81 2018-09 Yes 81mg Take 81 mg U nivers mg EC 2-10 by mouth ity of tablet 00:11: daily. [address] varenicline 2018-09 Yes 1mg Take 1 mg U nivers (CHANTIX) 1 2-10 by mouth 2 it y of mg tablet 00:11: (two) [address] daily. Branch predniSONE 2018-09 Yes 20mg Take 20 mg U nivers 20 mg 2-10 by mouth ity of tablet 00:11: daily. [address] omeprazole 2018-09 Yes 40mg Take 40 mg U nivers 40 mg 2-10 by mouth ity of capsule 00:11: daily. [address] fluticasone 2018-09 Yes 1{puff} Inhale 1 Univers -umeclidin- 2-10 Puff ity of vilanter 00:11: daily. [address]) Branch 100-62.5-25 mcg DsDv aspirin 81 2018-09 Yes 81mg Take 81 mg U nivers mg EC 2-10 by mouth ity of tablet 00:11: daily. [address] varenicline 2018-09 Yes 1mg Take 1 mg U nivers (CHANTIX) 1 2-10 by mouth 2 it y of mg tablet 00:11: (two) [place] [address] times Medical daily. Branch predniSONE 2018- Yes 20mg Take 20 mg U nivers 20 mg 2-10 by mouth ity of tablet 00:11: daily. [place] [address] Medical Branch omeprazole 2018- Yes 40mg Take 40 mg U nivers 40 mg 2-10 by mouth ity of capsule 00:11: daily. [place] [address] Medical Branch fluticasone 2018- Yes 1{puff} Inhale 1 Univers -umeclidin- 2-10 Puff ity of vilanter 00:11: daily. [place] ([place] [address] Medical [facility]) Branch 100-62.5-25 mcg DsDv aspirin 81 2018- Yes 81mg Take 81 mg U nivers mg EC 2-10 by mouth ity of tablet 00:11: daily. [address] Branch omeprazole 2018- Yes 40mg Take 40 mg U nivers 40 mg 2-10 by mouth ity of capsule 00:11: daily. [address] omeprazole 2018- Yes 40mg Take 40 mg U nivers 40 mg 2-10 by mouth ity of capsule 00:11: daily. [address] omeprazole 2018- Yes 40mg Take 40 mg U nivers 40 mg 2-10 by mouth ity of capsule 00:11: daily. [address] omeprazole 2018- Yes 40mg Take 40 mg U nivers 40 mg 2-10 by mouth ity of capsule 00:11: daily. [address] omeprazole 2018- Yes 40mg Take 40 mg U nivers 40 mg 2-10 by mouth ity of capsule 00:11: daily. [address] omeprazole 2018- Yes 40mg Take 40 mg U nivers 40 mg 2-10 by mouth ity of capsule 00:11: daily. [address] omeprazole 2018- Yes 40mg Take 40 mg U nivers 40 mg 2-10 by mouth ity of capsule 00:11: daily. [address] omeprazole 2018- Yes 40mg Take 40 mg U nivers 40 mg 2-10 by mouth ity of capsule 00:11: daily. [address] omeprazole 2018- Yes 40mg Take 40 mg U nivers 40 mg 2-10 by mouth ity of capsule 00:11: daily. [address] omeprazole 2018-09 Yes 40mg Take 40 mg U nivers 40 mg 2-10 by mouth ity of capsule 00:11: daily. [address] omeprazole 2018-09 Yes 40mg Take 40 mg U nivers 40 mg 2-10 by mouth ity of capsule 00:11: daily. [address] omeprazole 2018-09 Yes 40mg Take 40 mg U nivers 40 mg 2-10 by mouth ity of capsule 00:11: daily. [address] omeprazole 2018-09 Yes 40mg Take 40 mg U nivers 40 mg 2-10 by mouth ity of capsule 00:11: daily. [address] Branch KCL 20 mEq 2018-09 Yes [id number] 40meq Take 2 Univers tablet 2-09 tablets by ity of 00:00: mouth [place] 00 daily. Medical Branch KCL 20 mEq 2018-09 Yes [id number] 40meq Take 2 Univers tablet 2-09 tablets by ity of 00:00: mouth [place] 00 daily. Medical Branch atorvastati 2018-09 Yes [id number] 20mg Take 1 Univers n 20 mg 2-09 tablet by ity of tablet 00:00: mouth at [place] 00 bedtime. Medical Branch metoprolol 2018-09 Yes [id number] 50mg Take 1 Univers succinate 2-09 tablet by ity o f XL 50 mg 24 00:00: mouth 2 [place] as hr tablet 00 (two) Medical times Branch daily. furosemide 2018-09 Yes [id number] 40mg Take 1 Univers 40 mg 2-09 tablet by ity of tablet 00:00: mouth [place] 00 every Medical morning Branch and evening. KCL 20 mEq 2018-09 Yes [id number] 40meq Take 2 Univers tablet 2-09 tablets by ity of 00:00: mouth [place] 00 daily. Medical Branch atorvastati 2018-09 Yes [id number] 20mg Take 1 Univers n 20 mg 2-09 tablet by ity of tablet 00:00: mouth at [place] 00 bedtime. Medical Branch metoprolol 2018-09 Yes [id number] 50mg Take 1 Univers succinate 2-09 tablet by ity o f XL 50 mg 24 00:00: mouth 2 [place] hr tablet 00 (two) Medical times Branch daily. furosemide 2018-09 Yes [id number] 40mg Take 1 Univers 40 mg 2-09 tablet by ity of tablet 00:00: mouth [place] 00 every Medical morning Branch and evening. KCL 20 mEq 2018-09 Yes [id number] 40meq Take 2 Univers tablet 2-09 tablets by ity of 00:00: mouth [place] 00 daily. Medical Branch atorvastati 2018-09 Yes [id number] 20mg Take 1 Univers n 20 mg 2-09 tablet by ity of tablet 00:00: mouth at [place] 00 bedtime. Medical Branch metoprolol 2018-09 Yes [id number] 50mg Take 1 Univers succinate 2-09 tablet by ity o f XL 50 mg 24 00:00: mouth 2 [place] as hr tablet 00 (two) Medical times Branch daily. furosemide 2018-09 Yes [id number] 40mg Take 1 Univers 40 mg 2-09 tablet by ity of tablet 00:00: mouth [place] 00 every Medical morning Branch and evening. KCL 20 mEq 2018-09 Yes [id number] 40meq Take 2 Univers tablet 2-09 tablets by ity of 00:00: mouth [place] 00 daily. Medical Branch atorvastati 2018-09 Yes [id number] 20mg Take 1 Univers n 20 mg 2-09 tablet by ity of tablet 00:00: mouth at [place] 00 bedtime. Medical Branch metoprolol 2018-09 Yes [id number] 50mg Take 1 Univers succinate 2-09 tablet by ity o f XL 50 mg 24 00:00: mouth 2 [place] as hr tablet 00 (two) Medical times Branch daily. furosemide 2018-09 Yes [id number] 40mg Take 1 Univers 40 mg 2-09 tablet by ity of tablet 00:00: mouth [place] 00 every Medical morning Branch and evening. KCL 20 mEq 2018-09 Yes [id number] 40meq Take 2 [facility] tablet 2-09 tablets by ity of 00:00: mouth [place] 00 daily. Medical Branch atorvastati 2018-09 Yes [id number] 20mg Take 1 [facility] n 20 mg 2-09 tablet by ity of tablet 00:00: mouth at [place] 00 bedtime. Medical Branch metoprolol 2018-09 Yes [id number] 50mg Take 1 [facility] succinate 2-09 tablet by ity o f XL 50 mg 24 00:00: mouth 2 [place] hr tablet 00 (two) Medical times Branch daily. furosemide 2018-09 Yes [id number] 40mg Take 1 [facility] 40 mg 2-09 tablet by ity of tablet 00:00: mouth [place] 00 every Medical morning Branch and evening. KCL 20 mEq 2018-09 Yes [id number] 40meq Take 2 [facility] tablet 2-09 tablets by ity of 00:00: mouth [place] 00 daily. Medical Branch atorvastati 2018-09 Yes [id number] 20mg Take 1 [facility] n 20 mg 2-09 tablet by ity of tablet 00:00: mouth at [place] 00 bedtime. Medical Branch metoprolol 2018-09 Yes [id number] 50mg Take 1 [facility] succinate 2-09 tablet by ity o f XL 50 mg 24 00:00: mouth 2 [place] hr tablet 00 (two) Medical times Branch daily. furosemide 2018-09 Yes [id number] 40mg Take 1 [facility] 40 mg 2-09 tablet by ity of tablet 00:00: mouth [place] 00 every Medical morning Branch and evening. KCL 20 mEq 2018-09 Yes [id number] 40meq Take 2 [facility] tablet 2-09 tablets by ity of 00:00: mouth [place] 00 daily. Medical Branch KCL 20 mEq 2018-09 Yes [id number] 40meq Take 2 [facility] tablet 2-09 tablets by ity of 00:00: mouth [place] 00 daily. Medical Branch KCL 20 mEq 2018-09 Yes [id number] 40meq Take 2 [facility] tablet 2-09 tablets by ity of 00:00: mouth [place] 00 daily. Medical Branch KCL 20 mEq 2018-09 Yes [id number] 40meq Take 2 [facility] tablet 2-09 tablets by ity of 00:00: mouth [place] 00 daily. Medical Branch KCL 20 mEq 2018-09 Yes [id number] 40meq Take 2 [facility] tablet 2-09 tablets by ity of 00:00: mouth [place] 00 daily. Medical Branch KCL 20 mEq 2018-09 Yes [id number] 40meq Take 2 [facility] tablet 2-09 tablets by ity of 00:00: mouth [place] 00 daily. Medical Branch KCL 20 mEq 2018-09 Yes [id number] 40meq Take 2 [facility] tablet 2-09 tablets by ity of 00:00: mouth [place] 00 daily. Medical Branch KCL 20 mEq 2018-09 Yes [id number] 40meq Take 2 [facility] tablet 2-09 tablets by ity of 00:00: mouth [place] 00 daily. Medical Branch KCL 20 mEq 2018-09 Yes [id number] 40meq Take 2 [facility] tablet 2-09 tablets by ity of 00:00: mouth [place] 00 daily. Medical Branch KCL 20 mEq 2018-09 Yes [id number] 40meq Take 2 [facility] tablet 2-09 tablets by ity of 00:00: mouth [place] 00 daily. Medical Branch KCL 20 mEq 2018-09 Yes [id number] 40meq Take 2 [facility] tablet 2-09 tablets by ity of 00:00: mouth [place] 00 daily. Medical Branch KCL 20 mEq 2018-09 Yes [id number] 40meq Take 2 [facility] tablet 2-09 tablets by ity of 00:00: mouth [place] 00 daily. Medical Branch KCL 20 mEq 2018-09 Yes [id number] 40meq Take 2 [facility] tablet 2-09 tablets by ity of 00:00: mouth [place] 00 daily. Medical Branch KCL 20 mEq 2018-09 Yes [id number] 40meq Take 2 [facility] tablet 2-09 tablets by ity of 00:00: mouth [place] 00 daily. Medical Branch KCL 20 mEq 2018-09 Yes [id number] 40meq Take 2 [facility] tablet 2-09 tablets by ity of 00:00: mouth [place] 00 daily. Medical Branch KCL 20 mEq 2018-09 Yes [id number] 40meq Take 2 [facility] tablet 2-09 tablets by ity of 00:00: mouth [place] 00 daily. Medical Branch KCL 20 mEq 2018-09 Yes [id number] 40meq Take 2 [facility] tablet 2-09 tablets by ity of 00:00: mouth [place] 00 daily. Medical Branch KCL 20 mEq 2018-09 Yes [id number] 40meq Take 2 [facility] tablet 2-09 tablets by ity of 00:00: mouth [place] 00 daily. Medical Branch KCL 20 mEq 2018-09 Yes [id number] 40meq Take 2 [facility] tablet 2-09 tablets by ity of 00:00: mouth [place] 00 daily. Medical Branch KCL 20 mEq 2018-09- No [id number] 40meq Take 2 [facility] tablet 2-09 03-12 tablets by ity of 00:00: 00:00 mouth [place] 00 :00 daily. Medical Branch atorvastati 2018-09- No [id number] 20mg Take 1 [facility] n 20 mg 2- tablet by ity of tablet 00:00: 00:00 mouth at [place] 00 :00 bedtime. Medical Branch metoprolol 2018-09- No [id number] 50mg Take 1 [facility] succinate 2-05 22-26 tablet by ity of XL 50 mg 24 00:00: 00:00 mouth 2 [place] hr tablet 00 :00 (two) Medical times Branch daily. furosemide 2018-09- No [id number] 40mg Take 1 [facility] 40 mg 10-28 [...] Until mL Discontinu ed, Routine ibuprofen Yes [id number] 600mg Take 1 [facility] 600 mg 5-31 tablet by ity of tablet 00:00: mouth [place] 00 every 8 Medical (eight) Branch hours as needed (PAIN). ibuprofen Yes [id number] 600mg Take 1 U nivers 600 mg 5-31 tablet by ity of tablet 00:00: mouth [place] 00 every 8 Medical (eight) Branch hours as needed (pain). ibuprofen 2018- No [id number] 600mg Take 1 [facility] 600 mg 5-31 08-15 tablet by ity of tablet 00:00: 00:00 mouth [place] 00 :00 every 8 Medical (eight) Branch hours as needed (PAIN). ibuprofen 2018- No [id number] 600mg Take 1 [facility] 600 mg 5-31 08-15 tablet by ity of tablet 00:00: 00:00 mouth [place] 00 :00 every 8 Medical (eight) Branch hours as needed (pain). magnesium Yes 400mg Take 1 Tab U nivers oxide 2-23 by mouth 3 ity of (MAG-OX 00:00: (three) [place] 400) 400 mg 00 times Medical tablet daily. Branch enalapril Yes [id number] 2.5mg Take 1 Tab Univers (VASOTEC) 2-23 [...] s tablet 00 Medical Branch furosemide Yes [id number] 40mg Take 1 Tab Univers (LASIX) 40 [...] Medical tablet daily. Branch enalapril 2018- No [id number] 2.5mg Take 1 Tab [facility] (VASOTEC) 2- [...] 00 :00 Medical Branch furosemide 2019- No [id number] 40mg Take 1 Tab [facility] (LASIX) 40 [...] tablet 00:00: 00:00 daily. [place] 00 :00 Medical Branch ipratropium 2013-09- No [...] Immunizations Ordered Filled Immunization Date Status Comments [facility] e Immunization Name Name Pneumococcal 20 2022-12-12 Completed Universit y of Conjugate, PCV20 00:00:00 [facility] [place] [facility] dical (Prevnar 20) Branch Pneumococcal 20 2022-12-12 Completed Universit y of Conjugate, PCV20 00:00:00 [facility] [place] [facility] dical (Prevnar 20) Branch Pneumococcal 20 2022-12-12 Completed Universit y of Conjugate, PCV20 00:00:00 [facility] [place] [facility] dical (Prevnar 20) Branch Pneumococcal 20 2022-12-12 Completed Universit y of Conjugate, PCV20 00:00:00 [facility] [place] [facility] dical (Prevnar 20) Branch Pneumococcal 20 2022-12-12 Completed Universit y of Conjugate, PCV20 00:00:00 [facility] [place] [facility] dical (Prevnar 20) Branch Pneumococcal 20 2022-12-12 Completed Universit y of Conjugate, PCV20 00:00:00 [facility] [place] [facility] dical (Prevnar 20) Branch Pneumococcal 20 2022-12-12 Completed Universit y of Conjugate, PCV20 00:00:00 [facility] [place] [facility] dical (Prevnar 20) Branch Pneumococcal 20 2022-12-12 Completed Universit y of Conjugate, PCV20 00:00:00 [facility] [place] [facility] dical (Prevnar 20) Branch Pneumococcal 20 2022-12-12 Completed Universit y of Conjugate, PCV20 00:00:00 [facility] [place] [facility] dical (Prevnar 20) Branch Pneumococcal 20 2022-12-12 Completed Universit y of Conjugate, PCV20 00:00:00 [facility] [place] [facility] dical (Prevnar 20) Branch Pneumococcal 20 2022-12-12 Completed Universit y of Conjugate, PCV20 00:00:00 [place] [facility] dical (Prevnar 20) Branch Pneumococcal 20 2022-12-12 Completed Universit y of Conjugate, PCV20 00:00:00 [place] [facility] (Prevnar 20) Branch Pneumococcal 20 2022-12-12 Completed Universit y of Conjugate, PCV20 00:00:00 [facility] [place] [facility] dical (Prevnar 20) Branch Pneumococcal 20 2022-12-12 Completed Universit y of Conjugate, PCV20 00:00:00 [facility] [place] [facility] dical (Prevnar 20) Branch Pneumococcal 20 2022-12-12 Completed Universit y of Conjugate, PCV20 00:00:00 [place] [facility] dical (Prevnar 20) Branch Pneumococcal 20 2022-12-12 Completed Universit y of Conjugate, PCV20 00:00:00 [facility] [place] [facility] dical (Prevnar 20) Branch Pneumococcal 20 2022-12-12 Completed Universit y of Conjugate, PCV20 00:00:00 [facility] [place] [facility] dical (Prevnar 20) Branch Pneumococcal 20 2022-12-12 Completed Universit y of Conjugate, PCV20 00:00:00 [facility] [place] [facility] dical (Prevnar 20) Branch Pneumococcal 20 2022-12-12 Completed Universit y of Conjugate, PCV20 00:00:00 [facility] [place] [facility] dical (Prevnar 20) Branch Pneumococcal 20 2022-12-12 Completed Universit y of Conjugate, PCV20 00:00:00 [facility] [place] [facility] dical (Prevnar 20) Branch Pneumococcal 20 2022-12-12 Completed Universit y of Conjugate, PCV20 00:00:00 [facility] [place] [facility] dical (Prevnar 20) Branch Pneumococcal 20 2022-12-12 Completed Universit y of Conjugate, PCV20 00:00:00 [facility] [place] [facility] dical (Prevnar 20) Branch Pneumococcal 20 2022-12-12 Completed Universit y of Conjugate, PCV20 00:00:00 [facility] [place] [facility] dical (Prevnar 20) Branch Pneumococcal 20 2022-12-12 Completed Universit y of Conjugate, PCV20 00:00:00 [facility] [place] [facility] dical (Prevnar 20) Branch Pneumococcal 20 2022-12-12 Completed Universit y of Conjugate, PCV20 00:00:00 [facility] [place] [facility] dical (Prevnar 20) Branch Pneumococcal 20 2022-12-12 [...] Universit y of Conjugate, PCV20 00:00:00 [place] [facility] dical (Prevnar 20) Branch Pneumococcal 20 2022-12-12 [...] Universit y of Conjugate, PCV20 00:00:00 [place] [facility] dical (Prevnar 20) Branch SARS-COV-2 COVID-19 2020-11-23 [...] rsity of MODERNA 12+ YRS 00:00:00 [place] [facility] ical VACCINE Branch SARS-COV-2 COVID-19 2020-10-26 Completed Unive rsity of MODERNA 12+ YRS 00:00:00 [facility] ical VACCINE Branch Td 2019-02-16 Completed University of 00:00:00 [place] [...] Branch Td 2019-02-16 Completed University of 00:00:00 [place] [...] TD, NOS 2019-02-16 Completed University of 00:00:00 [facility] TD, NOS 2019-02-16 Completed University of 00:00:00 [facility] TD, NOS 2019-02-16 Completed University of 00:00:00 [facility] Pneumococcal 2014-09-05 Completed University o f Polysaccharide, 00:00:00 [place] [facility] ical PPSV23 (PNEUMOVAX) Branch Influenza Virus 2014-09-05 Completed Universit y of Vaccine Quad IM 3+ 00:00:00 [facility] Pneumococcal 2014-09-05 Completed University o f Polysaccharide, 00:00:00 [place] [facility] ical PPSV23 (PNEUMOVAX) Branch Influenza Virus 2014-09-05 Completed Universit y of Vaccine Quad IM 3+ 00:00:00 [facility] Pneumococcal 2014-09-05 Completed University o f Polysaccharide, 00:00:00 [place] [facility] ical PPSV23 (PNEUMOVAX) Branch Influenza Virus 2014-09-05 Completed Universit y of Vaccine Quad IM 3+ 00:00:00 [facility] Pneumococcal 2014-09-05 Completed University o f Polysaccharide, 00:00:00 [place] [facility] ical PPSV23 (PNEUMOVAX) Branch Influenza Virus 2014-09-05 Completed Universit y of Vaccine Quad IM 3+ 00:00:00 [facility] Pneumococcal 2014-09-05 Completed University o f Polysaccharide, 00:00:00 [place] [facility] ical PPSV23 (PNEUMOVAX) Branch Influenza Virus 2014-09-05 Completed Universit y of Vaccine Quad IM 3+ 00:00:00 [facility] Pneumococcal 2014-09-05 Completed University o f Polysaccharide, 00:00:00 [place] Med ical PPSV23 (PNEUMOVAX) Branch Influenza Virus 2014-09-05 Completed Universit y of Vaccine Quad IM 3+ 00:00:00 [facility] Pneumococcal 2014-09-05 Completed University o f Polysaccharide, 00:00:00 [place] Med ical PPSV23 (PNEUMOVAX) Branch Influenza Virus 2014-09-05 Completed Universit y of Vaccine Quad IM 3+ 00:00:00 [facility] Pneumococcal 2014-09-05 Completed University o f Polysaccharide, 00:00:00 [place] Med ical PPSV23 (PNEUMOVAX) Branch Influenza Virus 2014-09-05 Completed Universit y of Vaccine Quad IM 3+ 00:00:00 [facility] Pneumococcal 2014-09-05 Completed University o f Polysaccharide, 00:00:00 [place] [facility] ical PPSV23 (PNEUMOVAX) Branch Influenza Virus 2014-09-05 Completed Universit y of Vaccine Quad IM 3+ 00:00:00 [facility] Pneumococcal 2014-09-05 Completed University o f Polysaccharide, 00:00:00 [place] Med ical PPSV23 (PNEUMOVAX) Branch Influenza Virus 2014-09-05 Completed Universit y of Vaccine Quad IM 3+ 00:00:00 [facility] Pneumococcal 2014-09-05 Completed University o f Polysaccharide, 00:00:00 [place] Med ical PPSV23 (PNEUMOVAX) Branch Influenza Virus 2014-09-05 Completed Universit y of Vaccine Quad IM 3+ 00:00:00 [facility] Pneumococcal 2014-09-05 Completed University o f Polysaccharide, 00:00:00 [place] Med ical PPSV23 (PNEUMOVAX) Branch Influenza Virus 2014-09-05 Completed Universit y of Vaccine Quad IM 3+ 00:00:00 [facility] Pneumococcal 2014-09-05 Completed University o f Polysaccharide, 00:00:00 [place] Med ical PPSV23 (PNEUMOVAX) Branch Influenza Virus 2014-09-05 Completed Universit y of Vaccine Quad IM 3+ 00:00:00 [facility] Influenza Virus 2014-09-05 Completed Universit y of Vaccine Quad IM 3+ 00:00:00 [facility] Pneumococcal 2014-09-05 Completed University o f Polysaccharide, 00:00:00 [place] Med ical PPSV23 (PNEUMOVAX) Branch Pneumococcal 2014-09-05 Completed University o f Polysaccharide, 00:00:00 [place] [facility] ical PPSV23 (PNEUMOVAX) Branch Influenza Virus 2014-09-05 Completed Universit y of Vaccine Quad IM 3+ 00:00:00 [facility] Pneumococcal 2014-09-05 Completed University o f Polysaccharide, 00:00:00 [place] Med ical PPSV23 (PNEUMOVAX) Branch Influenza Virus 2014-09-05 Completed Universit y of Vaccine Quad IM 3+ 00:00:00 [facility] Pneumococcal 2014-09-05 Completed University o f Polysaccharide, 00:00:00 [place] Med ical PPSV23 (PNEUMOVAX) Branch Influenza Virus 2014-09-05 Completed Universit y of Vaccine Quad IM 3+ 00:00:00 [facility] Pneumococcal 2014-09-05 Completed University o f Polysaccharide, 00:00:00 [place] Med ical PPSV23 (PNEUMOVAX) Branch Influenza Virus 2014-09-05 Completed Universit y of Vaccine Quad IM 3+ 00:00:00 [facility] Pneumococcal 2014-09-05 Completed University o f Polysaccharide, 00:00:00 [place] Med ical PPSV23 (PNEUMOVAX) Branch Influenza Virus 2014-09-05 Completed Universit y of Vaccine Quad IM 3+ 00:00:00 [facility] Pneumococcal 2014-09-05 Completed University o f Polysaccharide, 00:00:00 [place] Med ical PPSV23 (PNEUMOVAX) Branch Influenza Virus 2014-09-05 Completed Universit y of Vaccine Quad IM 3+ 00:00:00 [facility] Pneumococcal 2014-09-05 Completed University o f Polysaccharide, 00:00:00 [place] Med ical PPSV23 (PNEUMOVAX) Branch Influenza Virus 2014-09-05 Completed Universit y of Vaccine Quad IM 3+ 00:00:00 [facility] Pneumococcal 2014-09-05 Completed University o f Polysaccharide, 00:00:00 [place] Med ical PPSV23 (PNEUMOVAX) Branch Influenza Virus 2014-09-05 Completed Universit y of Vaccine Quad IM 3+ 00:00:00 [facility] Pneumococcal 2014-09-05 Completed University o f Polysaccharide, 00:00:00 [place] Med ical PPSV23 (PNEUMOVAX) Branch Influenza Virus 2014-09-05 Completed Universit y of Vaccine Quad IM 3+ 00:00:00 [facility] Pneumococcal 2014-09-05 Completed University o f Polysaccharide, 00:00:00 [place] Med ical PPSV23 (PNEUMOVAX) Branch Influenza Virus 2014-09-05 Completed Universit y of Vaccine Quad IM 3+ 00:00:00 [facility] Pneumococcal 2014-09-05 Completed University o f Polysaccharide, 00:00:00 [place] Med ical PPSV23 (PNEUMOVAX) Branch Influenza Virus 2014-09-05 Completed Universit y of Vaccine Quad IM 3+ 00:00:00 [facility] Pneumococcal 2014-09-05 Completed University o f Polysaccharide, 00:00:00 [place] Med ical PPSV23 (PNEUMOVAX) Branch Influenza Virus 2014-09-05 Completed Universit y of Vaccine Quad IM 3+ 00:00:00 [facility] Pneumococcal 2014-09-05 Completed University o f Polysaccharide, 00:00:00 [place] Med ical PPSV23 (PNEUMOVAX) Branch Influenza Virus 2014-09-05 Completed Universit y of Vaccine Quad IM 3+ 00:00:00 [facility] Pneumococcal 2014-09-05 Completed University o f Polysaccharide, 00:00:00 [place] Med ical PPSV23 (PNEUMOVAX) Branch Influenza Virus 2014-09-05 Completed Universit y of Vaccine Quad IM 3+ 00:00:00 [facility] Pneumococcal 2014-09-05 Completed University o f Polysaccharide, 00:00:00 [place] Med ical PPSV23 (PNEUMOVAX) Branch Influenza Virus 2014-09-05 Completed Universit y of Vaccine Quad IM 3+ 00:00:00 [facility] Pneumococcal 2014-09-05 Completed University o f Polysaccharide, 00:00:00 [place] Med ical PPSV23 (PNEUMOVAX) Branch Influenza Virus 2014-09-05 Completed Universit y of Vaccine Quad IM 3+ 00:00:00 [facility] Pneumococcal 2014-09-05 Completed University o f Polysaccharide, 00:00:00 [place] Med ical PPSV23 (PNEUMOVAX) Branch Influenza Virus 2014-09-05 Completed Universit y of Vaccine Quad IM 3+ 00:00:00 [facility] Influenza Virus 2014-09-05 Completed Universit y of Vaccine Quad IM 3+ 00:00:00 [facility] Pneumococcal 2014-09-05 Completed University o f Polysaccharide, 00:00:00 [place] Med ical PPSV23 (PNEUMOVAX) Branch Pneumococcal 2014-09-05 Completed University o f Polysaccharide, 00:00:00 [place] Med ical PPSV23 (PNEUMOVAX) Branch Influenza Virus 2014-09-05 Completed Universit y of Vaccine Quad IM 3+ 00:00:00 [facility] Pneumococcal 2014-09-05 Completed University o f Polysaccharide, 00:00:00 [place] Med ical PPSV23 (PNEUMOVAX) Branch Influenza Virus 2014-09-05 Completed Universit y of Vaccine Quad IM 3+ 00:00:00 [facility] Pneumococcal 2014-09-05 Completed University o f Polysaccharide, 00:00:00 [place] Med ical PPSV23 (PNEUMOVAX) Branch Influenza Virus 2014-09-05 Completed Universit y of Vaccine Quad IM 3+ 00:00:00 [facility] Pneumococcal 2014-09-05 Completed University o f Polysaccharide, 00:00:00 [place] Med ical PPSV23 (PNEUMOVAX) Branch Influenza Virus 2014-09-05 Completed Universit y of Vaccine Quad IM 3+ 00:00:00 [facility] Pneumococcal 2014-09-05 Completed University o f Polysaccharide, 00:00:00 [place] Med ical PPSV23 (PNEUMOVAX) Branch Influenza Virus 2014-09-05 Completed Universit y of Vaccine Quad IM 3+ 00:00:00 [facility] Pneumococcal 2014-09-05 Completed University o f Polysaccharide, 00:00:00 [place] Med ical PPSV23 (PNEUMOVAX) Branch Influenza Virus 2014-09-05 Completed Universit y of Vaccine Quad IM 3+ 00:00:00 [facility] Pneumococcal 2014-09-05 Completed University o f Polysaccharide, 00:00:00 [place] Med ical PPSV23 (PNEUMOVAX) Branch Influenza Virus 2014-09-05 Completed Universit y of Vaccine Quad IM 3+ 00:00:00 [facility] Pneumococcal 2014-09-05 Completed University o f Polysaccharide, 00:00:00 [place] Med ical PPSV23 (PNEUMOVAX) Branch Influenza Virus 2014-09-05 Completed Universit y of Vaccine Quad IM 3+ 00:00:00 [facility] Pneumococcal 2014-09-05 Completed University o f Polysaccharide, 00:00:00 [place] Med ical PPSV23 (PNEUMOVAX) Branch Influenza Virus 2014-09-05 Completed Universit y of Vaccine Quad IM 3+ 00:00:00 [facility] Pneumococcal 2014-09-05 Completed University o f Polysaccharide, 00:00:00 [place] Med ical PPSV23 (PNEUMOVAX) Branch Influenza Virus 2014-09-05 Completed Universit y of Vaccine Quad IM 3+ 00:00:00 [facility] Pneumococcal 2014-09-05 Completed University o f Polysaccharide, 00:00:00 [place] Med ical PPSV23 (PNEUMOVAX) Branch Influenza Virus 2014-09-05 Completed Universit y of Vaccine Quad IM 3+ 00:00:00 [facility] Pneumococcal 2014-09-05 Completed University o f Polysaccharide, 00:00:00 [place] Med ical PPSV23 (PNEUMOVAX) Branch Influenza Virus 2014-09-05 Completed Universit y of Vaccine Quad IM 3+ 00:00:00 [facility] Pneumococcal 2014-09-05 Completed University o f Polysaccharide, 00:00:00 [place] Med ical PPSV23 (PNEUMOVAX) Branch Influenza Virus 2014-09-05 Completed Universit y of Vaccine Quad IM 3+ 00:00:00 [facility] Pneumococcal 2014-09-05 Completed University o f Polysaccharide, 00:00:00 [place] Med ical PPSV23 (PNEUMOVAX) Branch Influenza Virus 2014-09-05 Completed Universit y of Vaccine Quad IM 3+ 00:00:00 [facility] Pneumococcal 2014-09-05 Completed University o f Polysaccharide, 00:00:00 [place] Med ical PPSV23 (PNEUMOVAX) Branch Influenza Virus 2014-09-05 Completed Universit y of Vaccine Quad IM 3+ 00:00:00 [facility] Pneumococcal 2014-09-05 Completed University o f Polysaccharide, 00:00:00 [place] Med ical PPSV23 (PNEUMOVAX) Branch Influenza Virus 2014-09-05 Completed Universit y of Vaccine Quad IM 3+ 00:00:00 [facility] Pneumococcal 2014-09-05 Completed University o f Polysaccharide, 00:00:00 [place] Med ical PPSV23 (PNEUMOVAX) Branch Influenza Virus 2014-09-05 Completed Universit y of Vaccine Quad IM 3+ 00:00:00 [facility] Pneumococcal 2014-09-05 Completed University o f Polysaccharide, 00:00:00 [place] Med ical PPSV23 (PNEUMOVAX) Branch Influenza Virus 2014-09-05 Completed Universit y of Vaccine Quad IM 3+ 00:00:00 [facility] Pneumococcal 2014-09-05 Completed University o f Polysaccharide, 00:00:00 [place] Med ical PPSV23 (PNEUMOVAX) Branch Influenza Virus 2014-09-05 Completed Universit y of Vaccine Quad IM 3+ 00:00:00 [facility] Pneumococcal 2014-09-05 Completed University o f Polysaccharide, 00:00:00 [place] Med ical PPSV23 (PNEUMOVAX) Branch Influenza Virus 2014-09-05 Completed Universit y of Vaccine Quad IM 3+ 00:00:00 [facility] Pneumococcal 2014-09-05 Completed University o f Polysaccharide, 00:00:00 [place] Med ical PPSV23 (PNEUMOVAX) Branch Influenza Virus 2014-09-05 Completed Universit y of Vaccine Quad IM 3+ 00:00:00 [facility] Pneumococcal 2014-09-05 Completed University o f Polysaccharide, 00:00:00 [place] Med ical PPSV23 (PNEUMOVAX) Branch Influenza Virus 2014-09-05 Completed Universit y of Vaccine Quad IM 3+ 00:00:00 [facility] Pneumococcal 2014-09-05 Completed University o f Polysaccharide, 00:00:00 [place] Med ical PPSV23 (PNEUMOVAX) Branch Influenza Virus 2014-09-05 Completed Universit y of Vaccine Quad IM 3+ 00:00:00 [facility] Pneumococcal 2014-09-05 Completed University o f Polysaccharide, 00:00:00 [place] Med ical PPSV23 (PNEUMOVAX) Branch Influenza Virus 2014-09-05 Completed Universit y of Vaccine Quad IM 3+ 00:00:00 [facility] Pneumococcal 2014-09-05 Completed University o f Polysaccharide, 00:00:00 [place] Med ical PPSV23 (PNEUMOVAX) Branch Influenza Virus 2014-09-05 Completed Universit y of Vaccine Quad IM 3+ 00:00:00 [facility] Pneumococcal 2014-09-05 Completed University o f Polysaccharide, 00:00:00 [place] Med ical PPSV23 (PNEUMOVAX) Branch Influenza Virus 2014-09-05 Completed Universit y of Vaccine Quad IM 3+ 00:00:00 [facility] Pneumococcal 2014-09-05 Completed University o f Polysaccharide, 00:00:00 [place] Med ical PPSV23 (PNEUMOVAX) Branch Influenza Virus 2014-09-05 Completed Universit y of Vaccine Quad IM 3+ 00:00:00 [facility] Pneumococcal 2014-09-05 Completed University o f Polysaccharide, 00:00:00 [place] Med ical PPSV23 (PNEUMOVAX) Branch Influenza Virus 2014-09-05 Completed Universit y of Vaccine Quad IM 3+ 00:00:00 [facility] Pneumococcal 2014-09-05 Completed University o f Polysaccharide, 00:00:00 [place] Med ical PPSV23 (PNEUMOVAX) Branch Influenza Virus 2014-09-05 Completed Universit y of Vaccine Quad IM 3+ 00:00:00 [facility] Pneumococcal 2014-09-05 Completed University o f Polysaccharide, 00:00:00 [place] [facility] PPSV23 (PNEUMOVAX) Branch Influenza Virus 2014-09-05 Completed [facility] Vaccine Quad IM 3+ 00:00:00 [facility] Pneumococcal 2014-09-05 Completed University o f Polysaccharide, 00:00:00 [place] [facility] PPSV23 (PNEUMOVAX) Branch Influenza Virus 2014-09-05 Completed [facility] of Vaccine Quad IM 3+ 00:00:00 [facility] Pneumococcal 2014-09-05 Completed University o f Polysaccharide, 00:00:00 [place] [facility] PPSV23 (PNEUMOVAX) Branch Influenza Virus 2014-09-05 Completed [facility]it [facility] of Vaccine Quad IM 3+ 00:00:00 [facility] Pneumococcal 2014-09-05 Completed [facility] o f Polysaccharide, 00:00:00 [place] [facility] PPSV23 (PNEUMOVAX) Branch Influenza Virus 2014-09-05 Completed [facility]it [facility] of Vaccine Quad IM 3+ 00:00:00 [facility] Pneumococcal 2014-09-05 Completed [facility] o f Polysaccharide, 00:00:00 [place] [facility] PPSV23 (PNEUMOVAX) Branch Influenza Virus 2014-09-05 Completed [facility]it [facility] of Vaccine Quad IM 3+ 00:00:00 [facility] Influenza Virus 2014-09-05 Completed [facility]it [facility] of Vaccine Quad IM 3+ 00:00:00 [facility] Pneumococcal 2014-09-05 Completed University o f Polysaccharide, 00:00:00 [place] [facility] PPSV23 (PNEUMOVAX) Branch Pneumococcal 2014-09-05 Completed [facility] o f Polysaccharide, 00:00:00 [place] [facility] PPSV23 (PNEUMOVAX) Branch Influenza Virus 2014-09-05 Completed [facility]it y of Vaccine Quad IM 3+ 00:00:00 [facility] Pneumococcal 2014-09-05 Completed University o f Polysaccharide, 00:00:00 [place] [facility] PPSV23 (PNEUMOVAX) Branch Influenza Virus 2014-09-05 Completed [facility]it [facility] of Vaccine Quad IM 3+ 00:00:00 [facility] Pneumococcal 2014-09-05 Completed [facility] o f Polysaccharide, 00:00:00 [place] [facility] PPSV23 (PNEUMOVAX) Branch Influenza Virus 2014-09-05 Completed [facility]it y of Vaccine Quad IM 3+ 00:00:00 [facility] Pneumococcal 2014-09-05 Completed [facility] o f Polysaccharide, 00:00:00 [place] [facility] PPSV23 (PNEUMOVAX) Branch Influenza Virus 2014-09-05 Completed [facility]it [facility] of Vaccine Quad IM 3+ 00:00:00 [facility] Vital Signs Vital Name Observation Time Observation Value Comments Source Systolic blood 2023-04-19 126 mm[Hg] University of pressure 15:37:00 [facility] Diastolic blood 2023-04-19 83 mm[Hg] University o f pressure 15:37:00 [facility] Heart rate 2023-04-19 94 /min University of 15:37:00 [facility] Respiratory rate 2023-04-19 18 /min University of 15:35:00 [facility] Body height 2023-04-19 177.8 cm University of 15:35:00 [facility] Body weight 2023-04-19 59.138 kg University of 15:35:00 [facility] BMI 2023-04-19 18.71 kg/m2 University of 15:35:00 [facility] Oxygen saturation 2023-04-19 94 /min University of in Arterial blood 15:35:00 [facility] [place] [facility] by Pulse oximetry Branch Systolic blood 2023-03-01 143 mm[Hg] University of pressure 20:27:00 [facility] Diastolic blood 2023-03-01 87 mm[Hg] University o f pressure 20:27:00 [facility] Heart rate 2023-03-01 99 /min University of 20:27:00 [facility] Body height 2023-03-01 177.8 cm University of 20:27:00 [facility] Body weight 2023-03-01 57.153 kg University of 20:27:00 [facility] BMI 2023-03-01 18.08 kg/m2 University of 20:27:00 [facility] Oxygen saturation 2023-03-01 99 /min University of in Arterial blood 20:27:00 [place] [facility] by Pulse oximetry [place] Systolic blood 2023-02-18 144 mm[Hg] University of pressure 16:17:00 [facility] Diastolic blood 2023-02-18 68 mm[Hg] University o f pressure 16:17:00 [facility] Heart rate 2023-02-18 55 /min University of 16:17:00 [facility] Body temperature 2023-02-18 36.06 Tia University of 16:17:00 [facility] Respiratory rate 2023-02-18 18 /min University of 16:17:00 [facility] Oxygen saturation 2023-02-18 100 /min University of in Arterial blood 16:17:00 [facility] by Pulse oximetry Branch Body weight 2023-02-18 58.968 kg University of 07:50:00 [facility] BMI 2023-02-18 18.65 kg/m2 University of 07:50:00 [facility] Body height 2023-02-16 177.8 cm University of 00:31:00 [facility] Oxygen saturation 2023-02-07 99 /min [place] of in Arterial blood 19:29:00 [facility] by Pulse oximetry Branch Systolic blood 2023-02-07 103 mm[Hg] University of pressure 19:27:00 [facility] Diastolic blood 2023-02-07 75 mm[Hg] University o f pressure 19:27:00 [facility] Heart rate 2023-02-07 104 /min University of 19:27:00 [facility] Body temperature 2023-02-07 36.39 Tia University of 19:27:00 [facility] Respiratory rate 2023-02-07 22 /min University of 19:27:00 [facility] Body weight 2023-02-07 72.576 kg University of 19:27:00 [facility] BMI 2023-02-07 22.96 kg/m2 University of 19:27:00 [facility] Heart rate 2023-02-05 85 /min University of 20:17:00 [facility] Respiratory rate 2023-02-05 18 /min University of 20:17:00 [facility] Oxygen saturation 2023-02-05 100 /min University of in Arterial blood 20:17:00 [facility] by Pulse oximetry Branch Systolic blood 2023-02-05 98 mm[Hg] [facility] of pressure 19:53:35 [facility] Diastolic blood 2023-02-05 71 mm[Hg] University o f pressure 19:53:35 [facility] Body temperature 2023-02-05 36.5 Tia University of 19:51:00 [facility] Body height 2023-02-05 177.8 cm University of 19:51:00 [facility] Body weight 2023-02-05 72.576 kg University of 19:51:00 [facility] BMI 2023-02-05 22.96 kg/m2 University of 19:51:00 [facility] Heart rate 2023-02-04 76 /min University of 20:31:00 [facility] Respiratory rate 2023-02-04 18 /min University of 20:31:00 [facility] Oxygen saturation 2023-02-04 97 /min University of in Arterial blood 20:31:00 [facility] [place] [facility] by Pulse oximetry Branch Systolic blood 2023-02-04 126 mm[Hg] [facility] of pressure 20:15:00 [facility] Diastolic blood 2023-02-04 98 mm[Hg] University o f pressure 20:15:00 [facility] Body temperature 2023-02-04 36.83 Tia University of 20:15:00 [facility] Body weight 2023-02-04 72.576 kg University of 20:15:00 [facility] BMI 2023-02-04 22.96 kg/m2 University of 20:15:00 [facility] Systolic blood 2023-02-03 100 mm[Hg] University of pressure 23:00:00 [facility] Diastolic blood 2023-02-03 65 mm[Hg] University o f pressure 23:00:00 [facility] Heart rate 2023-02-03 115 /min University of 23:00:00 [facility] Respiratory rate 2023-02-03 20 /min University of 23:00:00 [facility] Oxygen saturation 2023-02-03 97 /min University of in Arterial blood 23:00:00 [facility] by Pulse oximetry Branch Body temperature 2023-02-03 36.72 Tia University of 22:44:00 [facility] Body weight 2023-02-03 72.576 kg University of 22:44:00 [facility] BMI 2023-02-03 22.96 kg/m2 University of 22:44:00 [facility] Systolic blood 2023-02-03 128 mm[Hg] [facility] of pressure 20:02:00 [facility] Diastolic blood 2023-02-03 81 mm[Hg] University o f pressure 20:02:00 [facility] Heart rate 2023-02-03 88 /min University of 20:02:00 [facility] Respiratory rate 2023-02-03 25 /min University of 20:02:00 [facility] Oxygen saturation 2023-02-03 94 /min University of in Arterial blood 20:02:00 [facility] [place] [facility] by Pulse oximetry Branch Body temperature 2023-02-03 36.61 Tia University of 18:18:00 [facility] Body weight 2023-02-03 72.576 kg University of 17:41:00 [place] [facility] BMI 2023-02-03 22.96 kg/m2 University of 17:41:00 [facility] Heart rate 2023-02-02 107 /min University of 22:49:00 [facility] Respiratory rate 2023-02-02 20 /min University of 22:49:00 [facility] Oxygen saturation 2023-02-02 94 /min University of in Arterial blood 22:49:00 [facility] by Pulse oximetry Branch Systolic blood 2023-02-02 102 mm[Hg] [facility] of pressure 22:32:00 [facility] Diastolic blood 2023-02-02 74 mm[Hg] University o f pressure 22:32:00 [facility] Body temperature 2023-02-02 35.83 Tia University of 21:58:32 [facility] Body height 2023-02-02 177.8 cm University of 21:54:00 [facility] Body weight 2023-02-02 72.576 kg University of 21:54:00 [facility] BMI 2023-02-02 22.96 kg/m2 University of 21:54:00 [facility] Systolic blood 2023-01-31 140 mm[Hg] [facility] of pressure 21:00:00 [facility] Diastolic blood 2023-01-31 72 mm[Hg] University o f pressure 21:00:00 [facility] Heart rate 2023-01-31 89 /min University of 21:00:00 [facility] Respiratory rate 2023-01-31 20 /min University of 21:00:00 [facility] Oxygen saturation 2023-01-31 97 /min University of in Arterial blood 21:00:00 [facility] by Pulse oximetry Branch Body temperature 2023-01-31 36.72 Tia University of 18:50:00 [facility] Body weight 2023-01-31 72.576 kg University of 18:50:00 [facility] BMI 2023-01-31 22.96 kg/m2 University of 18:50:00 [facility] Systolic blood 2023-01-31 130 mm[Hg] [facility] of pressure 16:09:00 [facility] Diastolic blood 2023-01-31 72 mm[Hg] University o f pressure 16:09:00 [facility] Heart rate 2023-01-31 99 /min University of 16:09:00 [facility] Body temperature 2023-01-31 36.39 Tia University of 16:09:00 [facility] Respiratory rate 2023-01-31 18 /min University of 16:09:00 [facility] Body height 2023-01-31 177.8 cm University of 16:09:00 [facility] Body weight 2023-01-31 72.576 kg University of 16:09:00 [facility] BMI 2023-01-31 22.96 kg/m2 University of 16:09:00 [facility] Oxygen saturation 2023-01-31 97 /min University of in Arterial blood 16:09:00 [facility] [place] [facility] by Pulse oximetry Branch Systolic blood 2023-01-31 134 mm[Hg] University of pressure 14:50:00 [facility] Diastolic blood 2023-01-31 72 mm[Hg] University o f pressure 14:50:00 [facility] Heart rate 2023-01-31 85 /min University of 14:50:00 [facility] Body temperature 2023-01-31 36.39 Tia University of 14:50:00 [facility] Respiratory rate 2023-01-31 20 /min University of 14:50:00 [facility] Body weight 2023-01-31 72.576 kg University of 14:50:00 [facility] BMI 2023-01-31 22.96 kg/m2 University of 14:50:00 [facility] Oxygen saturation 2023-01-31 100 /min University of in Arterial blood 14:50:00 [facility] [place] [facility] by Pulse oximetry Branch Respiratory rate 2023-01-29 20 /min University of 13:40:00 [facility] Oxygen saturation 2023-01-29 100 /min University of in Arterial blood 13:40:00 [facility] [place] [facility] by Pulse oximetry Branch Systolic blood 2023-01-29 123 mm[Hg] University of pressure 13:06:00 [place] [facility] Diastolic blood 2023-01-29 76 mm[Hg] University o f pressure 13:06:00 [facility] Heart rate 2023-01-29 97 /min University of 13:06:00 [facility] Body temperature 2023-01-29 36.61 Tia University of 13:06:00 [facility] Body height 2023-01-29 177.8 cm University of 13:06:00 [facility] Body weight 2023-01-29 72.576 kg University of 13:06:00 [facility] BMI 2023-01-29 22.96 kg/m2 University of 13:06:00 [facility] Systolic blood 2023-01-27 115 mm[Hg] University of pressure 11:47:00 [facility] Diastolic blood 2023-01-27 75 mm[Hg] University o f pressure 11:47:00 [facility] Heart rate 2023-01-27 100 /min University of 11:47:00 [facility] Body temperature 2023-01-27 35.78 Tia University of 11:47:00 [facility] Respiratory rate 2023-01-27 28 /min University of 11:47:00 [facility] Oxygen saturation 2023-01-27 99 /min [place] of in Arterial blood 11:47:00 [facility] by Pulse oximetry Branch Body height 2023-01-27 177.8 cm University of 09:57:00 [facility] Body weight 2023-01-27 72.576 kg University of 09:57:00 [facility] BMI 2023-01-27 22.96 kg/m2 University of 09:57:00 [facility] Heart rate 2023-01-24 88 /min University of 20:55:00 [facility] Oxygen saturation 2023-01-24 93 /min University of in Arterial blood 20:55:00 [facility] by Pulse oximetry Branch Respiratory rate 2023-01-24 22 /min University of 20:52:00 [facility] Systolic blood 2023-01-24 128 mm[Hg] University of pressure 20:30:00 [facility] Diastolic blood 2023-01-24 69 mm[Hg] University o f pressure 20:30:00 [facility] Body temperature 2023-01-24 36.67 Tia University of 17:24:00 [facility] Body height 2023-01-24 177.8 cm University of 17:24:00 [facility] Body weight 2023-01-24 72.576 kg University of 17:24:00 [facility] BMI 2023-01-24 22.96 kg/m2 University of 17:24:00 [facility] Systolic blood 2023-01-24 129 mm[Hg] University of pressure 01:00:00 [facility] Diastolic blood 2023-01-24 76 mm[Hg] University o f pressure 01:00:00 [facility] Heart rate 2023-01-24 77 /min University of 01:00:00 [place] [facility] Respiratory rate 2023-01-24 18 /min University of 01:00:00 [facility] Oxygen saturation 2023-01-24 99 /min University of in Arterial blood 01:00:00 [place] [facility] by Pulse oximetry [facility] Body temperature 2023-01-24 35.61 Tia warm blankets University of 00:02:00 applied [facility] Body weight 2023-01-24 58.968 kg University of 00:02:00 [facility] BMI 2023-01-24 18.65 kg/m2 University of 00:02:00 [facility] Heart rate 2023-01-22 93 /min University of 23:46:00 [facility] Respiratory rate 2023-01-22 20 /min University of 23:46:00 [facility] Oxygen saturation 2023-01-22 100 /min University of in Arterial blood 23:46:00 [facility] by Pulse oximetry Branch Systolic blood 2023-01-22 146 mm[Hg] [facility] of pressure 23:21:00 [facility] Diastolic blood 2023-01-22 93 mm[Hg] University o f pressure 23:21:00 [facility] Body temperature 2023-01-22 36.72 Tia University of 23:21:00 [facility] Body weight 2023-01-22 58.968 kg University of 23:21:00 [facility] BMI 2023-01-22 18.65 kg/m2 University of 23:21:00 [facility] Heart rate 2023-01-21 84 /min University of 21:57:00 [facility] Respiratory rate 2023-01-21 18 /min University of 21:57:00 [facility] Oxygen saturation 2023-01-21 97 /min University of in Arterial blood 21:57:00 [place] [facility] by Pulse oximetry [facility] Systolic blood 2023-01-21 103 mm[Hg] [facility] of pressure 21:00:00 [facility] Diastolic blood 2023-01-21 61 mm[Hg] University o f pressure 21:00:00 [facility] Body temperature 2023-01-21 36.56 Tia University of 19:24:00 [facility] Body weight 2023-01-21 58.968 kg University of 19:24:00 [facility] BMI 2023-01-21 18.65 kg/m2 University of 19:24:00 [facility] Systolic blood 2023-01-19 111 mm[Hg] University of pressure 21:00:00 [facility] Diastolic blood 2023-01-19 64 mm[Hg] [facility] o f pressure 21:00:00 [facility] Heart rate 2023-01-19 85 /min University of 21:00:00 [facility] Body temperature 2023-01-19 36.56 Tia University of 21:00:00 [facility] Respiratory rate 2023-01-19 17 /min University of 21:00:00 [facility] Oxygen saturation 2023-01-19 98 /min University of in Arterial blood 21:00:00 [facility] [place] [facility] by Pulse oximetry Branch Body height 2023-01-19 177.8 cm University of 06:22:00 [facility] Body weight 2023-01-19 58.968 kg University of 06:22:00 [facility] BMI 2023-01-19 18.65 kg/m2 University of 06:22:00 [facility] Systolic blood 2023-01-17 116 mm[Hg] University of pressure 12:05:00 [facility] Diastolic blood 2023-01-17 69 mm[Hg] [facility] o f pressure 12:05:00 [facility] Heart rate 2023-01-17 100 /min University of 12:05:00 [facility] Respiratory rate 2023-01-17 24 /min University of 12:05:00 [facility] Oxygen saturation 2023-01-17 93 /min [facility] of in Arterial blood 12:05:00 [facility] [place] [facility] by Pulse oximetry Branch Body temperature 2023-01-17 35.39 Tia University of 10:59:00 [facility] Body height 2023-01-17 177.8 cm University of 10:59:00 [facility] Body weight 2023-01-17 58.968 kg University of 10:59:00 [facility] BMI 2023-01-17 18.65 kg/m2 University of 10:59:00 [facility] Systolic blood 2023-01-07 122 mm[Hg] University of pressure 19:38:00 [facility] Diastolic blood 2023-01-07 86 mm[Hg] [facility] o f pressure 19:38:00 [facility] Heart rate 2023-01-07 110 /min [facility] of 19:38:00 [facility] Respiratory rate 2023-01-07 16 /min University of 19:38:00 [facility] Body height 2023-01-07 177.8 cm University of 19:38:00 [facility] Body weight 2023-01-07 59.966 kg University of 19:38:00 [facility] BMI 2023-01-07 18.97 kg/m2 University of 19:38:00 [facility] Systolic blood 2022-12-26 118 mm[Hg] University of pressure 18:00:00 [facility] Diastolic blood 2022-12-26 79 mm[Hg] University o f pressure 18:00:00 [facility] Heart rate 2022-12-26 93 /min University of 18:00:00 [facility] Respiratory rate 2022-12-26 20 /min University of 18:00:00 [facility] Oxygen saturation 2022-12-26 95 /min University of in Arterial blood 18:00:00 [facility] by Pulse oximetry Branch Body temperature 2022-12-26 36.11 Tia University of 15:49:00 [facility] Body height 2022-12-26 177.8 cm University of 15:49:00 [facility] Body weight 2022-12-26 72.576 kg University of 15:49:00 [facility] BMI 2022-12-26 22.96 kg/m2 University of 15:49:00 [facility] Respiratory rate 2022-12-12 18 /min University of 16:45:00 [facility] Oxygen saturation 2022-12-12 99 /min [facility] of in Arterial blood 16:45:00 [facility] [place] [facility] by Pulse oximetry Branch Systolic blood 2022-12-12 135 mm[Hg] University of pressure 16:11:00 [facility] Diastolic blood 2022-12-12 80 mm[Hg] University o f pressure 16:11:00 [facility] Heart rate 2022-12-12 77 /min University of 16:11:00 [facility] Body temperature 2022-12-12 35.89 Tia University of 16:11:00 [facility] Body weight 2022-12-12 65 kg University of 08:50:00 [facility] BMI 2022-12-12 20.56 kg/m2 University of 08:50:00 [facility] Body height 2022-12-11 177.8 cm University of 04:23:00 [facility] Heart rate 2022-12-04 95 /min University of 12:33:00 [facility] Respiratory rate 2022-12-04 17 /min University of 12:33:00 [facility] Oxygen saturation 2022-12-04 98 /min [facility] of in Arterial blood 12:33:00 [place] [facility] Pulse oximetry [facility] Systolic blood 2022-12-04 125 mm[Hg] [facility] of pressure 12:20:00 [facility] Diastolic blood 2022-12-04 74 mm[Hg] [facility] o f pressure 12:20:00 [facility] Body temperature 2022-12-04 36.61 Tia University of 12:20:00 [facility] Body height 2022-12-02 177.8 cm University of 05:16:00 [facility] Body weight 2022-12-02 72.576 kg University of 05:16:00 [facility] BMI 2022-12-02 22.96 kg/m2 University of 05:16:00 [facility] Systolic blood 2022-12-01 114 mm[Hg] University of pressure 13:00:00 [facility] Diastolic blood 2022-12-01 78 mm[Hg] [facility] o f pressure 13:00:00 [facility] Heart rate 2022-12-01 88 /min University of 13:00:00 [facility] Respiratory rate 2022-12-01 20 /min [facility] of 13:00:00 [facility] Oxygen saturation 2022-12-01 98 /min [facility] of in Arterial blood 13:00:00 [facility] [place] [facility] by Pulse oximetry Branch Body temperature 2022-12-01 36.67 Tia University of 10:13:00 [facility] Body height 2022-12-01 177.8 cm University of 10:13:00 [facility] Body weight 2022-12-01 72.576 kg University of 10:13:00 [facility] BMI 2022-12-01 22.96 kg/m2 University of 10:13:00 [facility] Systolic blood 2022-11-28 154 mm[Hg] [facility] of pressure 17:00:00 [facility] Diastolic blood 2022-11-28 106 mm[Hg] University o f pressure 17:00:00 [facility] Heart rate 2022-11-28 87 /min [facility] of 17:00:00 [facility] Respiratory rate 2022-11-28 23 /min [facility] of 17:00:00 [facility] Oxygen saturation 2022-11-28 96 /min University of in Arterial blood 17:00:00 [facility] [place] [facility] by Pulse oximetry Branch Body temperature 2022-11-28 36.78 Tia [facility] 16:00:00 [facility] Body weight 2022-11-27 67.132 kg [facility] 12:00:00 [facility] [facility] BMI 2022-11-27 21.24 kg/m2 University of 12:00:00 [facility] Body height 2022-11-27 177.8 cm University of 08:39:00 [facility] Systolic blood 2022-11-19 152 mm[Hg] University of pressure 10:48:00 [facility] Diastolic blood 2022-11-19 88 mm[Hg] University o f pressure 10:48:00 [facility] Heart rate 2022-11-19 92 /min University of 10:48:00 [facility] Respiratory rate 2022-11-19 16 /min University of 10:48:00 [facility] Oxygen saturation 2022-11-19 98 /min University of in Arterial blood 10:48:00 [facility] by Pulse oximetry Branch Body temperature 2022-11-19 36.22 Tia University of 08:20:00 [facility] Body height 2022-11-19 177.8 cm University of 08:20:00 [facility] Body weight 2022-11-19 67.132 kg University of 08:20:00 [facility] BMI 2022-11-19 21.24 kg/m2 University of 08:20:00 [facility] Systolic blood 2022-11-19 152 mm[Hg] University of pressure 02:18:57 [facility] Diastolic blood 2022-11-19 91 mm[Hg] University o f pressure 02:18:57 [facility] Heart rate 2022-11-19 109 /min University of 02:18:57 [facility] Respiratory rate 2022-11-19 22 /min University of 02:18:57 [facility] Oxygen saturation 2022-11-19 95 /min University of in Arterial blood 02:18:57 [place] [facility] by Pulse oximetry [facility] Body temperature 2022-11-19 36.78 Tia University of 02:17:11 [facility] Body height 2022-11-19 177.8 cm University of 00:52:00 [facility] Body weight 2022-11-19 67.132 kg University of 00:52:00 [facility] BMI 2022-11-19 21.24 kg/m2 University of 00:52:00 [facility] Heart rate 2022-11-11 75 /min University of 17:35:00 [facility] Respiratory rate 2022-11-11 18 /min University of 17:35:00 [facility] Oxygen saturation 2022-11-11 95 /min University of in Arterial blood 17:35:00 [facility] by Pulse oximetry Branch Systolic blood 2022-11-11 130 mm[Hg] University of pressure 17:25:00 [facility] Diastolic blood 2022-11-11 71 mm[Hg] University o f pressure 17:25:00 [facility] Body temperature 2022-11-11 35.94 Tia University of 17:25:00 [facility] Body weight 2022-11-11 77.52 kg University of 09:34:00 [facility] BMI 2022-11-11 24.52 kg/m2 University of 09:34:00 [facility] Body height 2022-11-09 177.8 cm University of 19:30:00 [facility] Systolic blood 2020-12-29 96 mm[Hg] University of pressure 15:24:00 [facility] Diastolic blood 2020-12-29 66 mm[Hg] University o f pressure 15:24:00 [facility] Heart rate 2020-12-29 71 /min University of 15:24:00 [facility] Body temperature 2020-12-29 36.33 Tia University of 15:24:00 [facility] Body weight 2020-12-29 72.576 kg University of 15:24:00 [facility] BMI 2020-12-29 22.96 kg/m2 University of 15:24:00 [facility] Oxygen saturation 2020-12-29 95 /min University of in Arterial blood 15:24:00 [facility] [place] [facility] by Pulse oximetry Branch Systolic blood 2020-12-18 117 mm[Hg] University of pressure 19:07:00 [facility] Diastolic blood 2020-12-18 77 mm[Hg] University o f pressure 19:07:00 [facility] Heart rate 2020-12-18 77 /min University of 19:07:00 [facility] Body temperature 2020-12-18 36.22 Tia University of 19:07:00 [facility] Respiratory rate 2020-12-18 18 /min University of 19:07:00 [facility] Body height 2020-12-18 177.8 cm University of 19:07:00 [facility] Body weight 2020-12-18 73.211 kg University of 19:07:00 [facility] BMI 2020-12-18 23.16 kg/m2 University of 19:07:00 [facility] Systolic blood 2020-12-12 109 mm[Hg] University of pressure 18:00:00 [facility] Diastolic blood 2020-12-12 74 mm[Hg] University o f pressure 18:00:00 [facility] Heart rate 2020-12-12 78 /min University of 18:00:00 [facility] Respiratory rate 2020-12-12 20 /min University of 18:00:00 [facility] Oxygen saturation 2020-12-12 96 /min [facility] Arterial blood 18:00:00 [facility] by Pulse oximetry [place] Body temperature 2020-12-12 37.28 Tia University of 16:33:00 [facility] Body height 2020-12-12 177.8 cm University of 16:33:00 [facility] Body weight 2020-12-12 70.308 kg University of 16:33:00 [facility] BMI 2020-12-12 22.24 kg/m2 University of 16:33:00 [facility] Systolic blood 2020-12-08 125 mm[Hg] University of pressure 18:55:00 [facility] Diastolic blood 2020-12-08 82 mm[Hg] University o f pressure 18:55:00 [facility] Heart rate 2020-12-08 75 /min University of 18:55:00 [facility] Body temperature 2020-12-08 36.56 Tia University of 18:55:00 [facility] Respiratory rate 2020-12-08 16 /min University of 18:55:00 [facility] Body height 2020-12-08 177.8 cm University of 18:55:00 [facility] Body weight 2020-12-08 73.12 kg University of 18:55:00 [facility] BMI 2020-12-08 23.13 kg/m2 University of 18:55:00 [facility] Systolic blood 2019-05-04 127 mm[Hg] University of pressure 04:21:00 [facility] Diastolic blood 2019-05-04 86 mm[Hg] University o f pressure 04:21:00 [facility] Heart rate 2019-05-04 99 /min University 04:21:00 [facility] Respiratory rate 2019-05-04 26 /min University of 04:21:00 [facility] Body height 2019-05-04 177.8 cm University of 04:21:00 [facility] Body weight 2019-05-04 72.576 kg University of 04:21:00 [facility] BMI 2019-05-04 22.96 kg/m2 University 04:21:00 [facility] Oxygen saturation 2019-05-04 99 /min [place] of in Arterial blood 04:21:00 [place] [facility] by Pulse oximetry Branch Systolic blood 2019-05-04 127 mm[Hg] University of pressure 04:21:00 [facility] Diastolic blood 2019-05-04 86 mm[Hg] University o f pressure 04:21:00 [facility] Heart rate 2019-05-04 99 /min University 04:21:00 [facility] Respiratory rate 2019-05-04 26 /min University 04:21:00 [facility] Body height 2019-05-04 177.8 cm University 04:21:00 [facility] Body weight 2019-05-04 72.576 kg [facility] 04:21:00 [facility] BMI 2019-05-04 22.96 kg/m2 University 04:21:00 [facility] Oxygen saturation 2019-05-04 99 /min [facility] in Arterial blood 04:21:00 [place] [facility] by Pulse oximetry Branch Procedures Procedure Date / Time Performing Clinician Source Performed [id number] 2023-03-15 00:00:00 LISA [facility] CONSENT/REFUSAL FOR 2023-03-01 19:49:30 Doctor Unassigned, No [facility]AT[facility] Name Medical Branch TRANSTHORACIC ECHO (TTE) 2023-02-16 13:56:56 Dedrick Toth [facility] COMPLETE W/ CONTRAST Medical Bra nch TROPONIN I 2023-02-16 11:32:00 Dedrick Toth [facility] COMP. METABOLIC PANEL 2023-02-16 11:32:00 Dedrick Toth [facility] ([id number]) Medical [place] CBC WITH DIFF 2023-02-16 11:32:00 Dedrick Toth [facility] N-TERMINAL PRO-BNP 2023-02-16 11:32:00 Dedrick Toth [facility] URINALYSIS 2023-02-15 21:18:00 Francisca Bryant [facility] HB ECG ROUTINE & RHYTHM 2023-02-15 20:15:35 Francisca Bryant [facility] XR CHEST 1 VW 2023-02-15 20:14:30 Francisca Bryant [facility] AC PANEL 21 + LACTIC 2023-02-15 20:02:00 Francisca Bryant [facility] ACID [facility] MAGNESIUM 2023-02-15 20:01:00 Francisca Bryant [facility] TROPONIN I 2023-02-15 20:01:00 Francisca Bryant [facility] COMP. METABOLIC PANEL 2023-02-15 20:01:00 Francisca Bryant [facility] ([id number]) [facility] CBC WITH DIFF 2023-02-15 20:01:00 Francisca Bryant [facility] ASSIGNMENT OF BENEFITS 2023-02-07 19:52:07 Doctor Unassigned, No [facility] Name [facility] CONSENT/REFUSAL FOR 2023-02-07 19:51:03 [facility]igned, [facility] Name [facility] CONSENT/REFUSAL FOR 2023-02-04 19:51:56 [facility] Un[facility]igned, No [facility]MENT [facility]3] TROPONIN I 2023-01-31 20:21:00 Rachael Flowers [facility] COMP. METABOLIC PANEL 2023-01-31 20:21:00 Rachael Flowers [facility] ([id number]) [facility] ETHANOL 2023-01-31 20:21:00 Rachael Flowers [facility] CBC WITH DIFF 2023-01-31 20:21:00 Rachael Flowers [facility] N-TERMINAL PRO-BNP 2023-01-31 20:21:00 Rachael Flowers [facility] CONSENT/REFUSAL FOR 2023-01-31 18:39:05 Doctor Unassigned, No [facility] [place] [facility]IS AND TREATMENT Name [facility] CONSENT/REFUSAL FOR 2023-01-31 15:54:08 Doctor Unassigned, No [facility] [place] DIAGNOSIS AND TREATMENT Name [facility] CONSENT/REFUSAL FOR 2023-01-31 14:29:18 Doctor Unassigned, No [facility] AND TREATMENT Name [facility] ACUTE CARE VENOUS BLOOD 2023-01-27 10:45:00 Bessie Oswald [facility] GAS [facility] TROPONIN I 2023-01-27 10:16:00 Bessie Oswald [facility] BASIC METABOLIC PANEL 2023-01-27 10:16:00 Bessie Oswald [facility] (NA, K, CL, CO2, Medical Branch GLUCOSE, BUN, CREATININE, CA) CBC WITH DIFF 2023-01-27 10:16:00 Bessie Oswald [facility] N-TERMINAL PRO-BNP 2023-01-27 10:16:00 Bessie Oswald [facility] URINALYSIS 2023-01-24 20:23:00 Stephanie Almonte [facility] CT HEAD WO CONTRAST 2023-01-24 19:38:[address] [facility] AC ABG + LACTIC ACID 2023-01-24 18:37:00 Stephanie Almonte [facility] AMMONIA, PLASMA 2023-01-24 18:19:00 Stephanie Almonte [facility] RAPID STREP SCREEN FOR 2023-01-24 18:19:00 Stephanie Almonte [facility] GROUP A [facility] COVID-19 (ID NOW RAPID 2023-01-24 18:19:00 Stephanie Almonte [facility] TESTING) Medical Branch TROPONIN I 2023-01-24 17:52:00 Stephanie Almonte [facility] COMP. METABOLIC PANEL 2023-01-24 17:52:00 Stephanie Almonte [facility] ([id number]) Medical Branch ETHANOL 2023-01-24 17:52:00 Stephanie Almonte [facility] CBC WITH DIFF 2023-01-24 17:52:00 Stephanie Almonte [facility] N-TERMINAL PRO-BNP 2023-01-24 17:52:00 Stephanie Almonte [facility] COMP. METABOLIC PANEL 2023-01-21 20:58:00 Hong [facility] ([id number]) [facility] TROPONIN I 2023-01-21 20:05:00 Singer [facility] CBC WITH DIFF 2023-01-21 20:05:00 [facility] N-TERMINAL PRO-BNP 2023-01-21 20:05[facility] + LACTIC 2023-01-19 08:31:00 [facility] ACID [facility] D-DIMER 2023-01-19 08:17:00 [facility] BASIC METABOLIC PANEL 2023-01-19 08:15:00 Iza Varma [facility] (NA, K, CL, CO2, Medical Branch GLUCOSE, BUN, CREATININE, CA) CBC WITH DIFF 2023-01-19 08:15:00 Iza Varma [facility] N-TERMINAL PRO-BNP 2023-01-19 08:15:00 Lew [facility] EKG-12 LEAD 2023-01-17 12:23:30 Marisol Devlin [facility] XR CHEST 1 VW 2023-01-17 11:25:05 Marisol Devlin [facility] TROPONIN I 2023-01-17 11:04:00 Marisol Devlin [facility] COMP. METABOLIC PANEL 2023-01-17 11:04:00 Marisol Devlin [facility] ([id number]) [facility] CBC WITH DIFF 2023-01-17 11:04:00 Marisol Devlin [facility] N-TERMINAL PRO-BNP 2023-01-17 11:04:00 Marisol Devlin [facility] COMP. METABOLIC PANEL 2022-12-26 17:23:00 Iza Varma [facility] ([id number]) [facility] XR CHEST 1 VW 2022-12-26 16:39:[facility]ASSAY[facility] 2022-12-26 16:29:00 Iza Varma [facility] DRUG [facility] SCREEN URINALYSIS 2022-12-26 16:29:00 Iza Varma [facility] CBC WITH DIFF 2022-12-26 16:28:00 Varma, [facility] MAGNESIUM 2022-12-12 08:55:00 [facility] BASIC METABOLIC PANEL 2022-12-12 08:55:00 [facility] (NA, K, CL, CO2, [facility] GLUCOSE, BUN, CREATININE, CA) LIPID PANEL 2022-12-12 08:55:00 [facility] ([id number])(TOTAL [facility] CHOLESTEROL, TRIGLYCERIDES, HDL) N-TERMINAL PRO-BNP 2022-12-12 08:55:00 [facility] 2022-12-11 08:30:00 Dedrick Toth [facility] OSMOLALITY, SERUM OR 2022-12-11 08:30:00 Dedrick Toth [facility] PLASMA [facility] FREE T4 2022-12-11 08:30:00 Dedrick Toth [facility] BASIC METABOLIC PANEL 2022-12-11 08:30:00 Dedrick Toth [facility] (NA, K, CL, CO2, [facility] GLUCOSE, BUN, CREATININE, CA) CBC WITH DIFF 2022-12-11 08:30:00 Dedrick Toth [facility] N-TERMINAL PRO-BNP 2022-12-11 08:30:00 Dedrick Toth [facility] OSMOLALITY URINE 2022-12-11 03:24:00 Dedrick Toth [facility] SODIUM, URINE RANDOM 2022-12-11 03:24:00 Dedrick Toth [facility] URINALYSIS 2022-12-11 01:15:00 Singer [facility] HB ECG ROUTINE & RHYTHM 2022-12-11 00:38:04 Singer [facility] CT HEAD WO CONTRAST 2022-12-11 00:32:23 Singer [facility] XR CHEST 1 VW 2022-12-11 00:29:20 Singer [facility] TROPONIN I 2022-12-11 00:08:00 Singer [facility] COMP. METABOLIC PANEL 2022-12-11 00:08:00 Singer [facility] ([id number]) [facility] ETHANOL 2022-12-11 00:08:00 Singer [facility] CBC WITH DIFF 2022-12-11 00:08:00 Singer [facility] N-TERMINAL PRO-BNP 2022-12-11 00:08:00 Singer [facility] LACTIC ACID WHOLE BLOOD 2022-12-11 00:03:[address] [facility] AUTHORIZATION FOR 2022-12-09 05:01:00 Doctor Unassigned, No [facility] RELEASE OF PHI Name Medical Branch BASIC METABOLIC PANEL 2022-12-04 10:43:00 Ben [facility] (NA, K, CL, CO2, Medical Branch GLUCOSE, BUN, CREATININE, CA) CBC WITH DIFF 2022-12-04 10:43:00 Ben [facility] OSMOLALITY URINE 2022-12-03 17:05:00 Sudhakar De Santiago [facility] Medical [place] SODIUM, URINE RANDOM 2022-12-03 17:05:00 Sudhakar De Santiago [facility] [place] [facility] MAGNESIUM 2022-12-03 10:20:00 [facility] BASIC METABOLIC PANEL 2022-12-03 10:20:00 [facility] (NA, K, CL, CO2, Medical Branch GLUCOSE, BUN, CREATININE, CA) CBC WITH DIFF 2022-12-03 10:20:00 [facility] BASIC METABOLIC PANEL 2022-12-02 05:27:00 Carlo Maki [facility] (NA, K, CL, CO2, Medical Branch GLUCOSE, BUN, CREATININE, CA) CONSENT/REFUSAL FOR 2022-12-02 05:08:30 Doctor Unassigned, No [facility] AND TREATMENT Name [facility] HOSPITAL ADMISSION 2022-12-02 05:01:00 Doctor Unassigned, No [facility] Name [facility] COVID-19 (ID NOW RAPID 2022-12-01 13:01:00 Ernesto Piper [facility] TESTING) Medical Branch XR CHEST 1 VW 2022-12-01 12:40:25 Marisol Devlin [facility] EKG-12 LEAD 2022-12-01 12:17:26 Marisol Devlin [facility] ACUTE CARE ARTERIAL 2022-12-01 12:06:00 Marisol Devlin [facility] BLOOD GAS Medical Branch TROPONIN I 2022-12-01 11:51:00 Marisol Devlin [facility] BASIC METABOLIC PANEL 2022-12-01 11:51:00 Marisol Devlin [facility] (NA, K, CL, CO2, Medical Branch GLUCOSE, BUN, CREATININE, CA) CBC WITH DIFF 2022-12-01 11:51:00 Marisol Devlin [facility] Medical [place] BASIC METABOLIC PANEL 2022-11-28 16:51:00 Leila Chapa [facility] (NA, K, CL, CO2, Medical Branch GLUCOSE, BUN, CREATININE, CA) URIC ACID 2022-11-28 08:14:00 Reyna [facility] THYROID STIMULATING 2022-11-28 08:14:00 Reyna [facility] BASIC METABOLIC PANEL 2022-11-28 08:14:00 Leila Chapa [facility] (NA, K, CL, CO2, Medical Branch GLUCOSE, BUN, CREATININE, CA) CBC WITH DIFF 2022-11-28 08:14:00 María Diaz [facility] BASIC METABOLIC PANEL 2022-11-28 04:16:00 María Diaz [facility] (NA, K, CL, CO2, Medical Branch GLUCOSE, BUN, CREATININE, CA) BASIC METABOLIC PANEL 2022-11-28 00:33:00 Leila Chapa [facility] (NA, K, CL, CO2, Medical Branch GLUCOSE, BUN, CREATININE, CA) BASIC METABOLIC PANEL 2022-11-27 19:55:00 María Diaz [facility] (NA, K, CL, CO2, Medical Branch GLUCOSE, BUN, CREATININE, CA) MRSA / MSSA SCREEN BY 2022-11-27 09:21:00 María Diaz [facility] PCR, [facility] OSMOLALITY, SERUM OR 2022-11-27 09:10:00 María Diaz [facility] PLASMA [facility] OSMOLALITY URINE 2022-11-27 09:04:00 María Diaz [facility] BASIC METABOLIC PANEL 2022-11-27 09:04:00 María Diaz [facility] (NA, K, CL, CO2, Medical Branch GLUCOSE, BUN, CREATININE, CA) URINE DRUG (IMMUNOASSAY) 2022-11-27 09:04:00 María Diaz [facility] DRUG [facility] SCREEN URINALYSIS 2022-11-27 09:04:00 María Diaz [facility] CREATININE, URINE RANDOM 2022-11-27 09:04:[address] [facility] SODIUM, URINE RANDOM 2022-11-27 09:04:00 María Diaz [facility] XR CHEST 1 VW 2022-11-27 06:15:54 Bessie Oswald [facility] MAGNESIUM 2022-11-27 05:33:00 María Diaz [facility] TROPONIN I 2022-11-27 05:33:00 Bessie Oswald [facility] COMP. METABOLIC PANEL 2022-11-27 05:33:00 Bessie Oswald [facility] ([id number]) Medical Branch ETHANOL 2022-11-27 05:33:00 Bessie Oswald [facility] CBC WITH DIFF 2022-11-27 05:33:00 Bessie Oswald [facility] GLYCOSYLATED HEMOGLOBIN 2022-11-27 05:33:00 Leila Chapa [facility] ([id number]) [facility] N-TERMINAL PRO-BNP 2022-11-27 05:33:00 Bessie Oswald [facility] HB ECG ROUTINE & RHYTHM 2022-11-27 05:31:54 Bessie Oswald [facility] STRIP [facility] COMP. METABOLIC PANEL 2022-11-19 08:44:00 Iza Varma [facility] ([id number]) [facility] CBC WITH DIFF 2022-11-19 08:44:00 Iza Varma [facility] N-TERMINAL PRO-BNP 2022-11-19 08:44:00 Iza Varma [facility] BASIC METABOLIC PANEL 2022-11-11 10:52:00 Iaz Eden [facility] (NA, K, CL, CO2, Medical Branch GLUCOSE, BUN, CREATININE, CA) CBC WITH DIFF 2022-11-11 10:52:00 Iza Eden [facility] BASIC METABOLIC PANEL 2022-11-11 02:16:00 [facility] (NA, K, CL, CO2, Medical Branch GLUCOSE, BUN, CREATININE, CA) BASIC METABOLIC PANEL 2022-11-10 22:45:00 Guanako [facility] (NA, K, CL, CO2, Medical Branch GLUCOSE, BUN, CREATININE, CA) BASIC METABOLIC PANEL 2022-11-10 17:27:00 [facility] (NA, K, CL, CO2, Medical Branch GLUCOSE, BUN, CREATININE, CA) BASIC METABOLIC PANEL 2022-11-10 11:49:00 [facility] (NA, K, CL, CO2, Medical Branch GLUCOSE, BUN, CREATININE, CA) MAGNESIUM 2022-11-10 07:14:00 [facility]OLIC PANEL 2022-11-10 07:14:00 [facility] (NA, K, CL, CO2, Medical Branch GLUCOSE, BUN, CREATININE, CA) CBC WITH DIFF 2022-11-10 07:14:00 [facility] XR CHEST 1 VW 2022-11-09 07:53:00 Marisol Devlin [facility] LIPASE 2022-11-09 07:53:00 Marisol Devlin [facility] TROPONIN I 2022-11-09 07:53:00 Marisol Devlin [facility] COMP. METABOLIC PANEL 2022-11-09 07:53:00 Marisol Devlin [facility] ([id number]) [facility] CBC WITH DIFF 2022-11-09 07:53:00 Marisol Devlin [facility] N-TERMINAL PRO-BNP 2022-11-09 07:53:00 Marisol Devlin [facility] ACUTE CARE ARTERIAL 2022-11-09 07:50:00 Marisol Devlin [facility] BLOOD GAS [facility] HB ECG ROUTINE & RHYTHM 2022-11-09 07:39:47 Marisol Devlin [facility] ASSIGNMENT OF BENEFITS 2021-05-20 19:26:54 Doctor Unassigned, No [facility] Name [facility] POCT URINALYSIS AUTO 2020-12-18 19:04:00 Gokul Turner [facility] CT ABDOMEN PELVIS W 2020-12-12 17:25:03 Francisca Bryant [facility] BASIC METABOLIC PANEL 2020-12-12 16:47:00 Francisca Bryant [facility] [place] (NA, K, CL, CO2, Medical Branch GLUCOSE, BUN, CREATININE, CA) CBC WITH DIFF 2020-12-12 16:47:00 Francisca Bryant [facility] URINALYSIS 2020-12-12 16:47:00 Francisca Bryant [facility] NOTICE OF PRIVACY 2020-12-12 16:28:57 Doctor Unassigned, No [facility] ersity [facility] Branch CONSENT/REFUSAL FOR 2020-12-12 16:28:23 Doctor Unassigned, No [facility] [place] DIAGNOSIS AND TREATMENT Name [facility] POCT URINALYSIS AUTO 2020-12-08 18:56:00 Jeanette Mcdaniel [facility] CONSENT/REFUSAL FOR 2020-12-08 18:26:17 Doctor Unassigned, No [facility] AND TREATMENT [facility] Medical Branch ASSIGNMENT OF BENEFITS 2020-12-08 18:25:58 Doctor Unassigned, No [facility] Branch AUTHORIZATION FOR 2020-02-20 05:01:00 Doctor Unassigned, No [facility] RELEASE OF PHI [facility] ([facility]3] NOTICE OF PRIVACY 2019-05-04 04:10:29 Doctor Unassigned, No [facility] Branch CONSENT/REFUSAL FOR 2019-05-04 04:10:09 Doctor Unassigned, No [facility] [place] [facility]3] Encounters Start End Encounter Admission Attending Care Care Encounter Source Date/Time Date/Time Type Type Clinicians Facility Department ID 2021-07-19 Emergency [facility] [id number] [facility] 08:46:33 ity of [facility] 2023-04-22 2023-04-22 Outpatient R NOMI MARY [facility] 10 [id number] Univers 00:00:00 00:00:00 NOMI MARY i ty of [facility] 2023-04-19 2023-04-19 Outpatient R NOMI MARY [facility] 10 [id number] Univers 10:00:00 10:53:24 NOMI MARY i of [facility] 2023-04-19 2023-04-19 Office Mathew [facility] 1.2.840.114 [id number] Univers 10:00:00 10:53:24 Visit Nomi DERAS 350.1.13.10 i ty of [place] [phone] Mi dical NAL 085 [facility] 2023-04-19 2023-04-19 Patient Marika Monge 1.2.840.114 10 [id number] Univers 00:00:00 00:00:00 Outreach E SHAIKH 350.1.13.10 i ty of [place] [id number] [facility] 403 Branch 2023-03-15 2023-03-19 Inpatient EM Rudy Xiao HCAWU INTE.02 E4707 [id number] [facility] 07:16:00 14:47:00 22 [facility] 2023-03-01 2023-03-01 Office Adriano [facility] 1.2.840.114 [id number] Univers 16:30:00 17:00:00 Visit Herminiai'mma 350.1.13.10 it y of [facility] 4.2.7.2.686 [place] as JACKIE?BLEA [phone] Mi soraidanh NATALEE [address] [place] MEDICAL OFFICE [facility] 2023-03-01 2023-03-01 Outpatient R ADRIANO [facility] [id number] Univers 16:30:00 16:30:00 HERMINIA ity [facility] 2023-03-01 2023-03-01 Orders Doctor FRIEDMAN 1.2.840.114 [id number] Univers 00:00:00 00:00:00 Only Unassigned, ASHER 350.1.13.10 ity of [place] [facility] 4.2.7.2.686 Nelson as [phone] [facility] [address] [place] [address] [place] 2023-03-01 2023-03-01 Refill Christa [facility] 1.2.840.114 10 [id number] Univers 00:00:00 00:00:00 , Mily Healios K.K 350.1.13.10 ity of Haley [place] 4.2.7.2.686 [place] as JACKIE?BLEA [phone] Mi dical KNEY [address] [place] [address] MEDICAL OFFICE BUILDING 2023-02-21 2023-02-21 Transition GARY Frye 1.2.840.114 103 [id number] Univers 00:00:00 00:00:00 of Care Taylor SHAIKH 350.1.13.10 it y of [place] 4.2.7.2.686 [facility] [id number] [facility] [address] 2023-02-15 2023-02-18 Inpatient X RADHA [facility] [id number] Univers 14:41:00 16:11:00 TRAVIS ity [facility] 2023-02-15 2023-02-18 [facility] Iza Varma [facility] 1.2.840.11 4 [id number] Univers 14:41:00 16:11:00 Encounter Francisca Bryant 350.1.13 .10 ity of Travis Zeng [place] 4.2.7.2.686 [facility] [id number] [facility] 0[address] 2023-02-07 2023-02-07 Emergency X NORMAN [facility] ERT [id number] Univers 14:30:00 16:01:00 PRADIP judge [facility] 2023-02-07 2023-02-07 Emergency [facility] 1.2.840.114 10 [id number] Univers 14:30:00 16:01:00 Pradip DERAS 350.1.13.10 ity of [place] 4.2.7.2.686 [facility] [id number] [facility] [address] 2023-02-07 2023-02-07 Outpatient R CARL ORLANDO [facility] [id number] Univers 10:20:00 10:20:00 CARL ORLANDO [facility] 2023-02-05 2023-02-05 Emergency X MARQUIS [facility] ERT [id number] Univers 14:53:00 16:10:00 HERMINIA judge [facility] 2023-02-05 2023-02-05 Emergency [facility] 1.2.711.186 [id number] [id number] Univers 14:53:00 16:10:00 Herminia DERAS 350.1.13.10 i ty of [place] 4.2.7.2.686 [facility] [id number] [address] 2023-02-04 2023-02-04 Emergency X MANNY, [facility] ERT [id number] Univers 15:26:00 16:25:00 FRANCISCA judge [facility] 2023-02-04 2023-02-04 Emergency [facility] 1.2.840.114 10 [id number] Univers 15:26:00 16:25:00 Francisca DERAS 350.1.13.10 ity of [facility] 4.2.7.2.6 [facility] [id number] [address] 2023-02-03 2023-02-03 Emergency X HONG, [facility] ERT [id number] Univers 17:46:00 18:47:00 LOUIS judge [facility] 2023-02-03 2023-02-03 Emergency X HONG, [facility] ERT [id number] Univers 17:46:00 18:47:00 LOUIS deepa [facility] 2023-02-03 2023-02-03 Emergency Hong, [facility] 1.2.268.351 [id number] [id number] Univers 17:46:00 18:47:00 Louis DERAS 350.1.13.10 i ty of [place] 4.2.7.2.[address] [place] [phone] 2023-02-03 2023-02-03 Emergency Darek, [facility] 1.2.261.316 [id number] [id number] Univers 12:43:00 15:04:00 Bessie DERAS 350.1.13.10 i ty of [facility] 4.2.7.2.[address] [place] [phone] 2023-02-02 2023-02-02 Emergency X HONG, [facility] ERT [id number] Univers 16:49:00 18:10:00 LOUIS deepa [facility] 2023-02-02 2023-02-02 Emergency Hong, [facility] 1.2.820.965 [id number] Univers 16:49:00 18:10:00 Louis DERAS 350.1.13.10 i ty of [facility] 4.2.7.2.[address] [place] [id number] 2023-01-31 2023-01-31 Emergency X KRISTIE, [facility] ERT [id number] Univers 13:55:00 16:50:00 RACHAEL deepa [facility] 2023-01-31 2023-01-31 Emergency X KRISTIE, [facility] ERT [id number] Univers 13:55:00 16:50:00 RACHAEL [facility] 2023-01-31 2023-01-31 Emergency Kristie, [facility] 1.2.840.114 10 [id number] Univers 13:55:00 16:50:00 Rachael BRAEDEN 350.1.13.10 i ty of [facility] 4.2.7.2.[address] [place] [phone] 2023-01-31 2023-01-31 Emergency X VASUT, [facility] ERT [id number] Univers 11:11:00 12:12:00 LEOBARDO [facility] 2023-01-31 2023-01-31 Emergency Vasut, [facility] 1.2.685.114 [id number] [id number] Univers 11:11:00 12:12:00 Leobardo DERAS 350.1.13.10 i ty of [facility] 4.2.7.2.[address] [place] [phone] 2023-01-31 2023-01-31 Emergency [facility] 1.2.430.967 [id number] [id number] Univers 09:51:00 10:16:00 BRAEDEN 350.1.13.10 i ty of [facility] 4.2.7.2.[address] [place] [phone] 2023-01-29 2023-01-29 Emergency X CHO, [facility] ERT [id number] Univers 08:08:00 10:00:00 HERMINIA deepa [facility] 2023-01-29 2023-01-29 Emergency [facility] 1.2.497.247 [id number] Univers 08:08:00 10:00:00 Herminia DERAS 350.1.13.10 i ty of [facility] 4.2.7.2.[address] [place] [id number] 2023-01-27 2023-01-27 Emergency X [facility] ERT [id number] Univers 04:50:00 07:03:00 BESSIE itdeepa [facility] 2023-01-27 2023-01-27 Emergency [facility] 1.2.445.804 [id number] Univers 04:50:00 07:03:00 Bessie DERAS 350.1.13.10 i ty of [facility] 4.2.7.2.686 [facility] [phone] [address] 2023-01-27 2023-01-27 [place] [facility] 1.2.567.070 [id number] Univers 00:00:00 00:00:00 Nomi DERAS 350.1.13.10 i ty of [facility] 4.2.7.2.686 [facility] PROFESSIO [phone] Mi dical [address] 2023-01-24 2023-01-24 Emergency X [facility] ERT [id number] Univers 12:28:00 16:16:00 STEPHANIE [facility] 2023-01-24 2023-01-24 [facility] 1.2.729.450 [id number] Univers 12:28:00 16:16:00 Stephanie DERAS 350.1.13.10 i ty of [place] 4.[address] [place] [phone] 2023-01-23 2023-01-23 Emergency X [facility] ERT [id number] Univers 19:02:00 20:36:00 IZA itdeepa [facility] 2023-01-23 2023-01-23 Emergency [facility] 1.2.832.422 [id number] Univers 19:02:00 20:36:00 Iza DERAS 350.1.13.10 i ty of [place] 4.2.7.2.686 [facility] [phone] [address] 2023-01-22 2023-01-22 Emergency X [facility] ERT [id number] Univers 18:24:00 19:55:00 IZA itdeepa [facility] 2023-01-22 2023-01-22 Emergency Avani [facility] 1.2.807.029 [id number] Univers 18:24:00 19:55:00 Iza Chandler BRAEDEN 350.1.13.10 i ty of [facility] 4.2.7.2.686 [facility] [phone] [facility] [address] 2023-01-21 2023-01-21 Emergency X [facility] ERT [id number] Univers 14:20:00 18:14:00 LOUIS judge [facility] 2023-01-21 2023-01-21 Emergency [facility] 1.2.726.654 [id number] Univers 14:20:00 18:14:00 Louis BRAEDEN 350.1.13.10 i ty of [place] 4.2.7.2.686 [facility] [phone] [facility] [address] 2023-01-20 2023-01-20 Transition FryeGARY 1.2.840.114 102 [id number] Univers 00:00:00 00:00:00 of Care Taylor SHAIKH 350.1.13.10 it y of [place] 4.2.7.2.686 [facility] [phone] [facility] [address] 2023-01-19 2023-01-19 [facility] 1.2.84 0.114 [id number] Univers 01:15:00 19:40:00 Encounter Iza Varma 350.1.13.10 ity of Agapito Hackett [place] 4.2.7.2.686 [facility] [phone] [place] [address] Branch 2023-01-17 2023-01-17 Emergency X [facility] ERT [id number] Univers 05:57:00 07:37:00 MARISOL judge [facility] 2023-01-17 2023-01-17 Emergency [facility] 1.2.561.914 [id number] Univers 05:57:00 07:37:00 Marisol DERAS 350.1.13.10 ity of [facility] 4.2.7.2.686 [facility] [phone] [address] 2023-01-17 2023-01-17 Emergency X CLAUS [facility] ERT [id number] Univers 05:57:00 07:37:00 MARISOL ity [facility] 2023-01-10 2023-01-10 Letter [facility] 1.2.840.114 [id number] Univers 00:00:00 00:00:00 (Out) Herminiai'mma 350.1.13.10 it y of [place] 4.2.7.2.686 Nelson as JACKIE?BLEA [phone] [address] OFFICE [facility] 2023-01-07 2023-01-07 Outpatient [facility] [id number] Univers 14:30:00 15:25:56 HERMINIA ity [facility] 2023-01-07 2023-01-07 Office [facility] 1.2.840.114 [id number] Univers 14:30:00 15:25:56 Visit Herminia Healios K.K 350.1.13.10 it y of [place] 4.2.7.2.686 Nelson as JACKIE?BLEA [phone] [address] OFFICE [facility] 2022-12-26 2022-12-26 Emergency [facility] ERT [id number] Univers 10:50:00 14:12:00 IZA ity [facility] 2022-12-26 2022-12-26 Emergency [facility] 1.2.267.577 [id number] Univers 10:50:00 14:12:00 Iza S MENDELTON 350.1.13.10 i ty of [facility] 4.2.7.2.686 [facility] [phone] [address] 2022-12-14 2022-12-14 Outpatient R NOMI [facility]ARY [facility] 10 [id number] Univers 11:30:00 11:30:00 NOMI MARY i ty of [facility] 2022-12-14 2022-12-14 Transition GARY Frye 1.2.840.114 101 [id number] Univers 00:00:00 00:00:00 of Care Taylor B SHAIKH 350.1.13.10 it y of [place].2.[place] [phone] [facility] [address] 2022-12-10 2022-12-12 Outpatient X DAVEYRADHA [facility] [place] [id number] Univers 18:49:00 14:35:00 TRAVIS ity of [facility] 2022-12-10 2022-12-12 [facility] Louis Hong [facility] 1.2.840.1 14 [id number] Univers 18:49:00 14:35:00 Encounter Dedrick Toth 350.1.13. 10 ity of Karri Travisgeorge PATHAK 4.2.7.2.686 [facility] [id number] [facility] [address] 2022-12-10 2022-12-10 Enrrique Mary [facility] 1.2.840.114 [id number] Univers 00:00:00 00:00:00 Management Nomi DERAS 350.1.13.10 ity of [place] [id number] [facility] 0[address] [facility] 2022-12-10 2022-12-10 Transition GARY Caro 1.2.840.114 101 [id number] Univers 00:00:00 00:00:00 of Care Cecy SHAIKH 350.1.13.10 ity of [place]2.[place] [id number] [facility] [address] 2022-12-09 2022-12-09 Orders Doctor ELDER 1.2.840.114 [id number] Univers 00:00:00 00:00:00 Only Unassigned, ASHER 350.1.13.10 ity of [place] [facility] 4.2.7.2.686 Nelson as [id number] [facility] [address] 2022-12-06 2022-12-06 Transition GARY Frye 1.2.840.114 101 [id number] Univers 00:00:00 00:00:00 of Care Taylor B SHAIKH 350.1.13.10 it y of [place] 4.2.7.2.686 [place] [id number] [facility] [address] 2022-12-02 2022-12-04 Hospital Carlo Maki [facility] 1.2.8 40.114 [id number] Univers 00:13:00 12:30:00 Encounter Beny Abi [facility] 350.1.13.10 ity of Clive Contreras 4.2.7.2.686 [facility] [phone] [facility] 110 [address] (CLC) 2022-12-01 2022-12-01 Emergency U ERNESTO PIPER [facility] ERT [id number] Univers 05:32:00 09:08:00 [facility] 2022-12-01 2022-12-01 Emergency Marisol Devlin [facility] 1.2.840 .114 [id number] Univers 05:32:00 09:08:00 Ernesto Piper 350.1.13.10 ity of [place] 4.2.7.2.686 [facility] [id number] [place] [address] Branch 2022-12-01 2022-12-01 Emergency U CHUCKERNESTO Francois [facility] ERT [id number] Univers 05:32:00 09:08:00 ERNESTO PIPER [facility] 2022-11-26 2022-11-28 Outpatient X DHARMESH [facility] [place] [id number] Univers 22:55:00 13:50:00 LEILA [facility] 2022-11-26 2022-11-28 Hospital Bessie Oswald [facility] 1.2.840.11 4 [id number] Univers 22:55:00 13:50:00 Encounter María Diaz 350.1.13.10 ity of Leila Chapa 4.2.7.2.686 [facility] [id number] [facility] [address] 2022-11-19 2022-11-19 Emergency X AVANI [facility] ERT [id number] Univers 02:17:00 05:12:00 [facility] 2022-11-19 2022-11-19 Emergency [facility] 1.2.468.679 [id number] Univers 02:17:00 05:12:00 Iza DERAS 350.1.13.10 i ty of [facility] 4.2.7.2.686 [facility] [id number] [facility] [address] [place] 2022-11-18 2022-11-18 Emergency X [facility] ERT [id number] Univers 18:52:00 20:29:00 FRANCISCA itdeepa [facility] 2022-11-18 2022-11-18 Emergency [facility] 1.2.840.114 10 [id number] Univers 18:52:00 20:29:00 Francisca DERAS 350.1.13.10 ity of [facility] 4.2.7.2.686 [facility] [phone] [place] [address] [place] 2022-11-17 2022-11-17 Telephone [facility] 1.2.954.987 [id number] [id number] Univers 00:00:00 00:00:00 Nomi DERAS 350.1.13.10 i ty of [place] 4.2.7.2.[place] [phone] [place] 914165 [facility] 2022-11-12 2022-11-12 Transition GARY Frye 1.2.840.114 100 [id number] Univers 00:00:00 00:00:00 of Care Taylor SHAIKH 350.1.13.10 it y of [place] 4.2.7.2.686 [place] [id number] [facility] [address] 2022-11-09 2022-11-11 Inpatient X KARRI [facility] [place] [id number] Univers 01:32:00 13:35:00 TRAVIS judge [facility] 2022-11-09 2022-11-11 [facility] Marisol Devlin [facility] 1.2.840. 114 [id number] Univers 01:32:00 13:35:00 Encounter Travis Zeng 350.1.13.10 ity of [facility] 4.2.7.2.686 [place] [id number] [facility] [address] [place] 2021-05-22 2021-05-22 Telephone [facility] 1.2.969.943 [id number] Univers 00:00:00 00:00:00 Jeanette Deshpande Braeden 350.1.13.10 ity of [place] [phone] Mi dical nal 204 [facility] 2021-05-20 2021-05-20 Mac Artist Remington, Anshu Lab Main [facility] 1.2.8 40.114 [id number] Univers 14:28:38 14:43:38 Visit Gokul Turner 350.1.13.10 ity of [place].2.[place] [id number] [facility] 353 [facility] 2021-05-20 2021-05-20 Outpatient R YUE [facility] [id number] Univers 14:30:00 14:30:00 GOKUL ity [facility] 2021-05-20 2021-05-20 Orders Doctor ELDER 1.2.840.114 [id number] Univers 00:00:00 00:00:00 Only Unassigned, ASHER 350.1.13.10 ity of [place] [facility] 4.2.7.2.686 Nelson as [id number] [facility] [address] [place] 2021-05-20 2021-05-20 Telephone [facility] 1.2.840.114 [id number] Univers 00:00:00 00:00:00 Gokul Deras 350.1.13.10 i ty of [place].7.2.[place] [phone] Mi dical nal 204 [facility] 2020-12-29 2020-12-29 Office [facility] 1.2.840.114 [id number] Univers 10:12:45 11:07:51 Visit Gokul Deras 350.1.13.10 i ty of [place] 4.2.7.2.686 [place] [phone] Mi dical nal 204 [facility] 2020-12-29 2020-12-29 Outpatient R YUE [facility] [id number] Univers 10:15:00 10:15:00 [facility] 2020-12-18 2020-12-18 Office [facility] 1.2.840.114 [id number] Univers 13:36:17 14:58:35 Visit Rm, Adc Surg Spec Procedure Braeden 3 50.1.13.10 ity of [place] 4.2.7.2.[place] [id number] [address] 2020-12-18 2020-12-18 Outpatient R YUE [facility] [id number] Univers 14:00:00 14:00:[address] [facility] 2020-12-16 2020-12-16 Outpatient [facility] [id number] Univers 00:00:00 00:00:00 [facility] 2020-12-16 2020-12-16 Telephone [facility] 1.2.436.133 [id number] Univers 00:00:00 00:00:00 Jeanette Deras 350.1.13.10 ity of [place].2.[place] [phone] [address] 2020-12-12 2020-12-12 Emergency [facility] 1.2.840.114 [id number] Univers 11:36:00 13:42:00 Francisca Deras 350.1.13.10 ity of [place] 4.2.7.2.686 [place] [phone] [address] 2020-12-12 2020-12-12 Telephone [facility] 1.2.049.788 [id number] Univers 00:00:00 00:00:00 Jeanette Deras 350.1.13.10 ity of [place].2.[place] [phone] [address] 2020-12-08 2020-12-08 Office [facility] 1.2.840.114 [id number] Univers 13:28:10 14:09:14 Visit Jeanette Deras 350.1.13.10 ity of [place] 4.2.7.2.686 [place] essio [phone] Mi dical [address] 2020-12-08 2020-12-08 Outpatient Manoj MCDANIEL, [facility] [id number] Univers 13:30:00 13:30:00 JEANETTE judge [facility] 2020-12-08 2020-12-08 Orders Doctor ELDER Addison.2.840.114 [id number] Univers 00:00:00 00:00:00 Only Unassigned, ASHER 350.1.13.10 ity of [place] [facility] 4.2.7.2.686 Nelson as [phone] [address] 2020-12-07 2020-12-07 Nurse ELDER Perez2.840.114 [id number] Univers 00:00:00 00:00:00 Triage Herminia Chandler ASHER 350.1.13.10 ity of [facility] 4.2.7.2.686 Nelson as [phone] [address] 2020-06-19 2020-06-19 Outpatient Pepper, H[facility]G [id number] [facility] 13:30:00 13:30:[address] [place] [address] 2020-02-20 2020-02-20 Orders Doctor ELDER Addison.2.840.114 [id number] 00:00:00 00:00:00 Only Unassigned, ASHER 350.1.13.10 [place] [facility] 4.2.7.2.686 [id number] 009 2020-02-20 2020-02-20 Orders Doctor ELDER Addison.2.840.114 [id number] Univers 00:00:00 00:00:00 Only Unassigned, ASHER 350.1.13.10 ity of [place] [facility] 4.2.7.2.686 Nelson as [phone] [address] 2019-08-28 2019-08-28 Emergency X MARQUIS [facility] ERT [id number] Univers 08:25:33 11:54:00 HERMINIA judge [facility] 2019-08-24 2019-08-24 Emergency X SINGER [facility] ERT [id number] Univers 01:43:17 03:52:00 LOUIS judge of [facility] 2019-05-03 2019-05-04 Emergency [facility] 1.2.599.070 [id number] 23:28:18 00:27:00 Rameshmariela Deras 350.1.13.10 [place] 4.2.7.2.686 Kulm [phone] [facility] 2019-05-03 2019-05-04 Emergency [facility] 1.2.331.682 [id number] [facility] 23:28:18 00:27:00 Rameshmariela Deras 350.1.13.10 i ty of [place] 4.2.7.2.686 [facility] s Kulm [id number] [address] 2019-05-03 2019-05-03 Orders Doctor ELDER 1.2.840.114 [id number] 00:00:00 00:00:00 Only Unassigned, ASHER [id number] [place] [facility] [id number] [phone] 2019-05-03 2019-05-03 Orders Doctor ELDER [id number] 11 [facility] 00:00:00 00:00:00 Only Unassigned, ASHER 350.1.13.10 ity of [place] [facility] 4.2.7.2.686 [facility] [phone] [address] Results Test Description Test Time Test Comments Results Result Comments Source GLUCOSE BEDSIDE TESTING 2023-03-19 11:23:00 Test Item Value Reference Range Interpretation Comme nts GLUCOSE BEDSIDE TESTING (test code = GLUBED) 112 MG/DL 60-99 H GLUCOSE BEDSIDE [id number] 07:35:00 Test Item Value Reference Range Interpretation Comments GLUCOSE BEDSIDE TESTING (test code 170 MG/DL 60-99 H = GLUBED) VITAMIN [id number] 15:12:00 Test Item Value Reference Range Interpretation Comments VITAMIN B12 (test code = VITB12) 738 pg/mL 395-931 N FOLIC [id number] 15:12:00 Test Item Value Reference Range Interpretation Comments FOLIC ACID (test 4.9 ng/mL REFERENCE V ALUES: code = FOLR) NORMAL: 2.76 - >20 ng/ML DEFICIENT: 1.04 - 2.79 ng/ML COMPREHENSIVE METABOLIC [id number] 11:38:00 Test Item Value Reference Range Interpretation [...] the recommended for keon for GFRby the [facility] for Adults.The GFR will [...] PHOSPHATASE (test code = ALKP) CBC W/AUTO [id number] 11:24:00 Test Item Value Reference Range Interpretation [...] 0.00 K/mm3 0.0-0.1 N NRBC#) ARTERIAL BLOOD [id number] 17:25:00 Test Item Value Reference Range Interpretation [...] mated message] code = TEMPA) The system [employer] generated this result transmitted ref erence range: 37. The reference range was not used to int erpret this result as normal/abnormal . ABG SITE (test code = LR SITEA) ALLENS TEST (test Y CHECK code = ALLENS) FIO2 (test code = 36 % COHBGFFIO2) [id number] 12:29:00 Test Item Value Reference Range Interpretation Comments PHOSPHOROUS (test code = PHOS) 3.5 MG/DL 2.5-4.5 N ADD ON TEST? [id number] 12:29:00 Test Item Value Reference Range Interpretation Comments MAGNESIUM (test code = MAG) 1.8 MG/DL 1.6-2.3 N ADD ON TEST? YesARTERIAL BLOOD [id number] 12:26:00 Test Item Value Reference Range Interpretation [...] and readback by DR KELLI GARCIA by JeramyALBUQUERQUE INDIAN DENTAL CLINICBartolo.JK34 at 03/15/2023 12:12 :31 PM ABG DELIVERY [...] % 0.4-1.5 L = METHGB) VENOUS BLOOD [id number] 11:46:00 Test Item Value Reference Range Interpretation [...] % 0.4-1.5 L = METHGB) BASIC METABOLIC [id number] 07:06:00 Test Item Value Reference Range Interpretation [...] MG/DL 8.4-10.2 L CA) NT PRO-BRAIN NATRIURETIC [id number] 07:06:00 Test Item Value Reference Range Interpretation [...] causes* of NT-p roBNP elevation. -------- -------- [id number] 07:06:00 Test Item Value Reference Range Interpretation Comments TROPONIN-I (test code = TROPI) < 0.012 NG/ML 0.012-0.033 L - XR CHEST [id number] 06:59:00 [facility] 1960 Sex: M Patient Name: JUAN C MONGE Unit No: [id number] EXAMS: CPT CODE: [id number] XR CHEST 1V 72417 EXAMINATION: - XR CHEST 1V HISTORY: Chest [...] SylviaAG38 Orig Print D/T: S: 03/15/2023 (0702) [facility] NAME: JUAN C MONGE [id number] [place] PHYS: [place] [address] : 1960 AGE:62 SEX: M LOC: Z.ERS PHONE #: [phone] EXAM DATE: 03/15/2023 STATUS: REG ER FAX #: [phone] RADIOLOGY NO: PAGE 1 Signed ReportCBC W/O [id number] 06:42:00 Test Item Value Reference Range Interpretation [...] = 0.00 K/mm3 0.0-0.1 N NRBC#) TROPONIN [id number] 21:12:01 Test Item Value Reference Range Interpretation Comments TROPONIN I (test code = <=0.034 9528011855) OMAYRA (test code = OMAYRA) Reference (Normal) [...] biotin. Lab Interpretation Normal (test code = 60264-6) [facility]. METABOLIC PANEL (12091)2023-02-15 21:00:57 Test Item Value Reference Range Interpretation Comments NA (test code = 133 mmol/L 135-145 L 7758444793) K (test code = 4.5 mmol/L 3.5-5.0 6588403253) CL (test code = 90 mmol/L 98-108 L 0464441222) CO2 TOTAL (test code = 40 mmol/L 23-31 H 4831862340) AGAP (test code = 3 2-16 4790434835) BUN (test code = 25 mg/dL 7-23 H 8668035931) GLUCOSE (test code = 107 mg/dL 70-110 6419108060) CREATININE (test code = 0.88 mg/dL 0.60-1.25 9001298115) TOTAL BILI (test code = 1.6 mg/dL 0.1-1.1 H 7675680714) CALCIUM (test code = 8.9 mg/dL 8.6-10.6 3108865130) T PROTEIN (test code = 6.1 g/dL 6.3-8.2 L 7886290992) ALBUMIN (test code = 3.7 g/dL 3.5-5.0 8184251319) ALK PHOS (test code = 56 U/L 34-122 4653083838) ALTv (test code = 14 U/L 5-50 1742-6) AST(SGOT) (test code = 12 U/L 13-40 L 2442852880) eGFR (test code = 87.2 mL/min/1.73m2 5326918121) OMAYRA (test code = OMAYRA) Association of [...] tests). Lab Interpretation Abnormal (test code = 72764-8) [facility]2023-[facility]-30 21:00:57 Test Item Value Reference Range Interpretation Comments MAGNESIUM (test code = 2083450593) 2.0 mg/dL 1.7-2.4 Lab Interpretation (test code = Normal 92305-0) [facility] WITH [id number] 20:53:39 Test Item Value Reference Range Interpretation [...] RDW-SD (test code = 50.1 fL 38.5-51.6 53752-7) RDW-CV (test code = 13.6 % 12.1-15.4 788-0) PLT (test code = 223 See_Comment [Automated 777-3) message] The sy stem which generated this result transmitted reference range : 150 - 328 10*3/ ?L. The reference r pasquale was not used to interpret this result as normal/abnormal . MPV (test code = 12.1 fL 9.8-13.0 55976-1) NRBC/100 WBC (test 0.0 See_Comment [Automat ed code = 9256414302) message] The system which generated this result transmitted reference range : 0.0 - 10.0 /100 WBCs. The refer ence range was not u sed to interpret th is result as normal/abnormal . NRBC x10^3 (test code See_Comment [Auto mated = 5805594006) message] The s ystem which generated this result transmitted reference range : 10*3/?L. The reference range was not used to interpret this result as normal/abnormal . GRAN MAT (NEUT) % 72.8 % (test code = 770-8) IMM GRAN % (test code 0.90 % = 9643329030) LYMPH % (test code = 17.7 % 736-9) MONO % (test code = 7.4 % 5905-5) EOS % (test code = 0.9 % 713-8) BASO % (test code = 0.3 % 706-2) GRAN MAT x10^3(ANC) 6.57 10*3/uL 1.99-6.95 (test code = 6729807145) IMM GRAN x10^3 (test 0.08 10*3/uL 0.00-0.06 H code = 2653209840) LYMPH x10^3 (test code 1.60 10*3/uL 1.09-3.23 = 731-0) MONO x10^3 (test code 0.67 10*3/uL 0.36-1.02 = 742-7) EOS x10^3 (test code = 0.08 10*3/uL 0.06-0.53 711-2) BASO x10^3 (test code 0.03 10*3/uL 0.01-0.09 = 704-7) Lab Interpretation Abnormal (test code = 46017-6) [facility] 21 + LACTIC [id number] 20:11:20 Test Item Value Reference Range Interpretation Comments PH (test code = 7.33 7.32-7.42 6733206778) PCO2 ERVIN (test code = 75 See_Comment H [Auto mated 8341829008) message] The sy stem which generated this result transmitted reference range : 41 - 51 mmHg. The reference range was not used to interpret this result as normal/abnormal . PO2 ERVIN (test code = 20 See_Comment L [Autom ated 9858439215) message] The sy stem which generated this result transmitted reference range : 25 - 40 mmHg. The reference range was not used to interpret this result as normal/abnormal . HCO3 ERVIN (test code = 39 See_Comment H [Auto mated 9909346321) message] The sy stem which generated this result transmitted reference range : 24 - 28 mEq/L. The reference range was not used to interpret this result as normal/abnormal . AC VBE(BEAKER) (test 9.1 mEq/L code = 8019915460) THB ERVIN (test code = 15.9 g/dL 13.5-18.0 3929822418) %O2HB ERVIN (test code = 30.0 % 52.0-63.0 L 1209126747) %COHB ERVIN (test code = 4.1 % 0.0-1.5 H 3651286548) %METHB ERVIN (test code = 0.3 % 0.4-1.5 L 2482054438) VOL%O2 ERVIN (test code = 6.7 % 6.0-12.0 8608488627) NA (test code = 137 mmol/L 135-145 0270133538) K+ (test code = 4.5 mmol/L 3.5-5.0 5286019113) AC CA IONZ (test code = 4.60 mg/dL 4.50-5.30 3788978415) GLUCOSE (test code = 113 mg/dL 70-110 H 3982339494) LACTIC ACID (test code 1.65 mmol/L 0.50-2.20 = 3228334398) Lab Interpretation Abnormal (test code = 61109-3) [facility] [id number] 21:20:05 Test Item Value Reference Range Interpretation Comments TROPONIN I (test code = 0.005 ng/mL <=0.034 7613853879) OMAYRA (test code = OMAYRA) Reference (Normal) [...] biotin. Lab Interpretation Normal (test code = 00225-7) [facility] [id number] 21:17:24 Test Item Value Reference Range Interpretation Comments NT-proBNP (test code = 712 pg/mL <=125 H 5817478749) OMAYRA (test code = OMAYRA) Biotin has been reported to cause a negative bias, interpret results relative to patient's use of biotin. 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 METABOLIC PANEL (58855) 2023-01-31 21:10:01 Test Item Value Reference Range Interpretation Comments NA (test code = 142 mmol/L 135-145 9673278292) K (test code = 4.7 mmol/L 3.5-5.0 6730275988) CL (test code = 99 mmol/L 98-108 7240006298) CO2 TOTAL (test code = 37 mmol/L 23-31 H 2715975183) AGAP (test code = 6 2-16 7610664376) BUN (test code = 30 mg/dL 7-23 H 7822267070) GLUCOSE (test code = 100 mg/dL 70-110 4945413137) CREATININE (test code = 0.61 mg/dL 0.60-1.25 8222300044) TOTAL BILI (test code = 0.6 mg/dL 0.1-1.2 4262632204) CALCIUM (test code = 8.8 mg/dL 8.6-10.6 5119666069) T PROTEIN (test code = 5.9 g/dL 6.3-8.2 L 5780589800) ALBUMIN (test code = 3.5 g/dL 3.5-5.0 4027599523) ALK PHOS (test code = 42 U/L 34-122 1826303782) ALTv (test code = 16 U/L 5-50 1742-6) AST(SGOT) (test code = 12 U/L 13-40 L 5219602507) eGFR (test code = 133.1 mL/min/1.73m2 6252265923) OMAYRA (test code = OMAYRA) Association of [...] tests). Lab Interpretation Abnormal (test code = 79149-1) [facility] WITH [id number] 20:59:58 Test Item Value Reference Range Interpretation Comments WBC (test code = 13.02 See_Comment H [Automated 4091-2) message] The system which generated this result transmit anirudh reference range : 4.20 - 10.70 10*3/?L. The reference range was not used to interpret this result as normal/abnormal . RBC (test code = 4.09 See_Comment L [Automated 669-8) message] The system which generated this result [...] (test code = 61.6 fL 38.5-51.6 H 47735-0) RDW-CV (test code = 16.2 % 12.1-15.4 H 788-0) PLT (test code = 250 See_Comment [Automated 777-3) message] The system which generated this result transmit anirudh reference range : 150 - 328 10*3/ ?L. The reference range was not u sed to interpret th is result as normal/abnormal . MPV (test code = 10.5 fL 9.8-13.0 28767-0) NRBC/100 WBC (test 0.0 See_Comment [Automat ed code = 6880219580) message] The system which generated this result transmit anirudh reference range : 0.0 - 10.0 /100 WBCs. The reference range was not used to interpret this result as normal/abnormal . NRBC x10^3 (test code See_Comment [Auto mated = 5765853452) message] The system which generated this result transmit anirudh reference range : 10*3/?L. The reference range was not used to interpret this result as normal/abnormal . GRAN MAT (NEUT) % 90.9 % (test code = 770-8) IMM GRAN % (test code 1.20 % = 1408090222) LYMPH % (test code = 3.9 % 736-9) MONO % (test code = 3.8 % 5905-5) EOS % (test code = 0.0 % 713-8) BASO % (test code = 0.2 % 706-2) GRAN MAT x10^3(ANC) 11.83 10*3/uL 1.99-6.95 H (test code = 9507917827) IMM GRAN x10^3 (test 0.16 10*3/uL 0.00-0.06 H code = 6059738247) LYMPH x10^3 (test code 0.51 10*3/uL 1.09-3.23 L = 731-0) MONO x10^3 (test code 0.49 10*3/uL 0.36-1.02 = 742-7) EOS x10^3 (test code = 0.06-0.53 L 711-2) BASO x10^3 (test code 0.03 10*3/uL 0.01-0.09 = 704-7) Lab Interpretation Abnormal (test code = 91342-3) [facility]TR[facility] [id number] 11:16:36 Test Item Value Reference Range Interpretation Comments TROPONIN I (test code = 0.002 ng/mL <=0.034 5536843544) OMAYRA (test code = OMAYRA) Reference (Normal) [...] biotin. Lab Interpretation Normal (test code = 33338-8) [facility]N-[facility]MINAL [id number] 11:13:18 Test Item Value Reference Range Interpretation Comments NT-proBNP (test code = 112 pg/mL <=125 6217823666) OMAYRA (test code = OMAYRA) Biotin has been reported to cause a negative bias, interpret results relative to patient's use of biotin. Lab Interpretation (test Normal code = 67322-0) [facility] METABOLIC PANEL (NA, K, CL, CO2, GLUCOSE, BUN, CREATININE, CA)2023-01-27 11:04:56 Test Item Value Reference Range Interpretation Comments NA (test code = 136 mmol/L 135-145 7901326844) K (test code = 4.1 mmol/L 3.5-5.0 1645520476) CL (test code = 96 mmol/L 98-108 L 1747980910) CO2 TOTAL (test code = 34 mmol/L 23-31 H 1141018115) AGAP (test code = 6 2-16 2118450206) BUN (test code = 22 mg/dL 7-23 5168470897) GLUCOSE (test code = 117 mg/dL 70-110 H 1287756964) CREATININE (test code = 0.55 mg/dL 0.60-1.25 L 5175059897) CALCIUM (test code = 8.4 mg/dL 8.6-10.6 L 1890350172) eGFR (test code = 150.0 mL/min/1.73m2 4209331437) OMAYRA (test code = OMAYRA) Association of [...] tests). Lab Interpretation Abnormal (test code = 72838-8) [facility] WITH [id number] 10:38:33 Test Item Value Reference Range Interpretation Comments WBC (test code = 9.56 See_Comment [Ecaxqxxsf 1681-2) message] The sy stem which generated this [...] (test code = 56.7 fL 38.5-51.6 H 07390-4) RDW-CV (test code = 15.3 % 12.1-15.4 788-0) PLT (test code = 220 See_Comment [Automated 777-3) message] The sy stem which generated this result transmitted reference range : 150 - 328 10*3/ ?L. The reference r pasquale was not used to interpret this result as normal/abnormal . MPV (test code = 10.6 fL 9.8-13.0 41091-6) NRBC/100 WBC (test 0.0 See_Comment [Automat ed code = 1539407414) message] The system which generated this result transmitted reference range : 0.0 - 10.0 /100 WBCs. The refer ence range was not u sed to interpret th is result as normal/abnormal . NRBC x10^3 (test code See_Comment [Auto mated = 6740698107) message] The s ystem which generated this result transmitted reference range : 10*3/?L. The reference range was not used to interpret this result as normal/abnormal . GRAN MAT (NEUT) % 60.0 % (test code = 770-8) IMM GRAN % (test code 0.70 % = 2497152963) LYMPH % (test code = 26.5 % 736-9) MONO % (test code = 11.4 % 5905-5) EOS % (test code = 0.9 % 713-8) BASO % (test code = 0.5 % 706-2) GRAN MAT x10^3(ANC) 5.73 10*3/uL 1.99-6.95 (test code = 8740080446) IMM GRAN x10^3 (test 0.07 10*3/uL 0.00-0.06 H code = 4046598391) LYMPH x10^3 (test code 2.53 10*3/uL 1.09-3.23 = 731-0) MONO x10^3 (test code 1.09 10*3/uL 0.36-1.02 H = 742-7) EOS x10^3 (test code = 0.09 10*3/uL 0.06-0.53 711-2) BASO x10^3 (test code 0.05 10*3/uL 0.01-0.09 = 704-7) Lab Interpretation Abnormal (test code = 17936-0) [facility] TexasAMMONIA, [id number] 18:51:59 Test Item Value Reference Range Interpretation Comments AMMONIA (test code = 9923042694) 9-33 L Lab Interpretation (test code = Abnormal 99216-0) [facility]AC ABG + LACTIC [id number] 18:40:53 Test Item Value Reference Range Interpretation Comments PH (test code = 2) 7.43 7.35-7.45 PCO2 (test code = 53 See_Comment H [Automate d 4658353830) message] The sy stem which generated this result transmitted reference range : 35 - 45 mmHg. The reference range was not used to interpret this result as normal/abnormal . PO2 (test code = 49 See_Comment L [Automated 7059767285) message] The sy stem which generated this result transmitted reference range : 80 - 100 mmHg. The reference range was not used to interpret this result as normal/abnormal . HCO3 (test code = 34 See_Comment H [Automate d 0905202471) message] The sy stem which generated this result transmitted reference range : 22 - 26 mEq/L. The reference range was not used to interpret this result as normal/abnormal . BE (test code = 7.8 See_Comment H [Automated 7536834172) message] The sy stem which generated this result transmitted reference range : -3.0 - 3.0 mEq/ L. The reference r pasquale was not used to interpret this result as normal/abnormal . LACTIC ACID (test code 0.92 mmol/L 0.50-2.20 = 1364866356) Lab Interpretation Abnormal (test code = 21886-4) [facility] TexasTroponin [id number] 18:28:26 Test Item Value Reference Range Interpretation Comments TROPONIN I (test code = 0.003 ng/mL <=0.034 9190633818) OMAYRA (test code = OMAYRA) Reference (Normal) [...] biotin. Lab Interpretation Normal (test code = 36945-4) [facility] TexasN-TERMINAL [id number] 18:25:29 Test Item Value Reference Range Interpretation Comments NT-proBNP (test code = 376 pg/mL <=125 H 1491892127) OMAYRA (test code = OMAYRA) Biotin has been reported to cause a negative bias, interpret results relative to patient's use of biotin. Lab Interpretation (test Abnormal code = 93049-6) [facility]COMP Metabolic Panel (97939)2023-01-24 18:24:03 Test Item Value Reference Range Interpretation Comments NA (test code = 135 mmol/L 135-145 3459365469) K (test code = 4.0 mmol/L 3.5-5.0 8971367539) CL (test code = 90 mmol/L 98-108 L 2867924952) CO2 TOTAL (test code = 43 mmol/L 23-31 H 0862589001) AGAP (test code = 2 2-16 7820130923) BUN (test code = 12 mg/dL 7-23 1373662793) GLUCOSE (test code = 92 mg/dL 70-110 9225652754) CREATININE (test code = 0.58 mg/dL 0.60-1.25 L 1348023100) TOTAL BILI (test code = 1.3 mg/dL 0.1-1.1 H 8581975715) CALCIUM (test code = 8.6 mg/dL 8.6-10.6 9375707085) T PROTEIN (test code = 6.0 g/dL 6.3-8.2 L 0528636124) ALBUMIN (test code = 3.6 g/dL 3.5-5.0 4984292562) ALK PHOS (test code = 52 U/L 34-122 1781453569) ALTv (test code = 17 U/L 5-50 1742-6) AST(SGOT) (test code = 10 U/L 13-40 L 0452271596) eGFR (test code = 141.1 mL/min/1.73m2 3048628665) OMAYRA (test code = OMAYRA) Association of [...] tests). 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 The reference range was not used to interpret this result as normal/abnormal . RBC (test code = 4.46 See_Comment [Automated 309-8) message] The sy stem which generated this [...] (test code = 59.7 fL 38.5-51.6 H 00425-1) RDW-CV (test code = 15.8 % 12.1-15.4 H 788-0) PLT (test code = 239 See_Comment [Automated 107-3) message] The sy stem which generated this result transmitted reference range : 150 - 328 10*3/ ?L. The reference r pasquale was not used to interpret this result as normal/abnormal . MPV (test code = 10.5 fL 9.8-13.0 69041-8) NRBC/100 WBC (test 0.0 See_Comment [Automat ed code = 5761178762) message] The system which generated this result transmitted reference range : 0.0 - 10.0 /100 WBCs. The refer ence range was not u sed to interpret th is result as normal/abnormal . NRBC x10^3 (test code See_Comment [Auto mated = 4819827324) message] The s ystem which generated this result transmitted reference range : 10*3/?L. The reference range was not used to interpret this result as normal/abnormal . GRAN MAT (NEUT) % 64.5 % (test code = 770-8) IMM GRAN % (test code 0.40 % = 9471035187) LYMPH % (test code = 23.1 % 736-9) MONO % (test code = 9.8 % 5905-5) EOS % (test code = 1.8 % 713-8) BASO % (test code = 0.4 % 706-2) GRAN MAT x10^3(ANC) 5.06 10*3/uL 1.99-6.95 (test code = 2492343813) IMM GRAN x10^3 (test 0.03 10*3/uL 0.00-0.06 code = 7904303477) LYMPH x10^3 (test code 1.81 10*3/uL 1.09-3.23 = 731-0) MONO x10^3 (test code 0.77 10*3/uL 0.36-1.02 = 742-7) EOS x10^3 (test code = 0.14 10*3/uL 0.06-0.53 711-2) BASO x10^3 (test code 0.03 10*3/uL 0.01-0.09 = 704-7) Lab Interpretation Abnormal (test code = 70861-2) [facility]. METABOLIC PANEL (87296)2023-01-21 21:33:50 Test Item Value Reference Range Interpretation Comments NA (test code = 136 mmol/L 135-145 4233335506) K (test code = 4.3 mmol/L 3.5-5.0 1975607711) CL (test code = 95 mmol/L 98-108 L 2317510404) CO2 TOTAL (test code = 38 mmol/L 23-31 H 4439257738) AGAP (test code = 3 2-16 8234013035) BUN (test code = 17 mg/dL 7-23 6640939549) GLUCOSE (test code = 102 mg/dL 70-110 5373833700) CREATININE (test code = 0.62 mg/dL 0.60-1.25 9887160084) TOTAL BILI (test code = 0.8 mg/dL 0.1-1.4 5214857477) CALCIUM (test code = 7.8 mg/dL 8.6-10.6 L 9787560200) T PROTEIN (test code = 4.9 g/dL 6.3-8.2 L 8246410548) ALBUMIN (test code = 3.0 g/dL 3.5-5.0 L 1970420314) ALK PHOS (test code = 45 U/L 34-122 9295976876) ALTv (test code = 13 U/L 5-50 1742-6) AST(SGOT) (test code = 11 U/L 13-40 L 8093413408) eGFR (test code = 130.6 mL/min/1.73m2 6884202593) OMAYRA (test code = OMAYRA) Association of [...] tests). Lab Interpretation Abnormal (test code = 85213-0) [facility] TexasTR[facility]IN [id number] 21:11:45 Test Item Value Reference Range Interpretation Comments TROPONIN I (test code = 0.019 ng/mL <=0.034 5851406150) OMAYRA (test code = OMAYRA) Reference (Normal) [...] biotin. Lab Interpretation Normal (test code = 91021-0) [facility] TexasN-TERMINAL EBM-[id number] 21:08:47 Test Item Value Reference Range Interpretation Comments NT-proBNP (test code = 266 pg/mL <=125 H Hemol yzed 7505043420) specimen OMAYRA (test code = OMAYRA) Biotin has been reported to cause a negative bias, interpret results relative to patient's use of biotin. Lab Interpretation Abnormal (test code = 97107-2) [facility] TexasCB WITH [id number] 20:40:24 Test Item Value Reference Range Interpretation Comments WBC (test code = 6.78 See_Comment [Automated 1164-2) message] The sy stem which generated this [...] (test code = 60.4 fL 38.5-51.6 H 12563-8) RDW-CV (test code = 16.2 % 12.1-15.4 H 788-0) PLT (test code = 215 See_Comment [Automated 777-3) message] The sy stem which generated this result transmitted reference range : 150 - 328 10*3/ ?L. The reference r pasquale was not used to interpret this result as normal/abnormal . MPV (test code = 10.9 fL 9.8-13.0 33228-0) NRBC/100 WBC (test 0.0 See_Comment [Automat ed code = 5312254380) message] The system which generated this result transmitted reference range : 0.0 - 10.0 /100 WBCs. The refer ence range was not u sed to interpret th is result as normal/abnormal . NRBC x10^3 (test code See_Comment [Auto mated = 7019275805) message] The s ystem which generated this result transmitted reference range : 10*3/?L. The reference range was not used to interpret this result as normal/abnormal . GRAN MAT (NEUT) % 75.4 % (test code = 770-8) IMM GRAN % (test code 0.40 % = 2157110363) LYMPH % (test code = 15.3 % 736-9) MONO % (test code = 7.7 % 5905-5) EOS % (test code = 0.9 % 713-8) BASO % (test code = 0.3 % 706-2) GRAN MAT x10^3(ANC) 5.11 10*3/uL 1.99-6.95 (test code = 3971935388) IMM GRAN x10^3 (test 0.03 10*3/uL 0.00-0.06 code = 2764671338) LYMPH x10^3 (test code 1.04 10*3/uL 1.09-3.23 L = 731-0) MONO x10^3 (test code 0.52 10*3/uL 0.36-1.02 = 742-7) EOS x10^3 (test code = 0.06 10*3/uL 0.06-0.53 711-2) BASO x10^3 (test code 0.01-0.09 = 704-7) Lab Interpretation Abnormal (test code = 08612-2) [facility] Bwm-[id number] 08:49:53 Test Item Value Reference Range Interpretation Comments NT-proBNP (test code = 158 pg/mL <=125 H 7250460625) OMAYRA (test code = OMAYRA) Biotin has been reported to cause a negative bias, interpret results relative to patient's use of biotin. Lab Interpretation (test Abnormal code = 15828-6) [facility] TexasD-Uxcru1882-63-69 08:44:10 Test Item Value Reference Interpretation Comments Range D-DIMER (test code = See_Comment [Autom ated [id number]) message] The system which generated this result [...] diagnosis. Lab Interpretation Normal (test code = 74611-9) [facility] METABOLIC PANEL (NA, K, CL, CO2, GLUCOSE, BUN, CREATININE, CA)2023-01-19 08:41:13 Test Item Value Reference Range Interpretation Comments NA (test code = 134 mmol/L 135-145 L [id number]) K (test code = 5.3 mmol/L 3.5-5.0 H 6087000017) CL (test code = 91 mmol/L 98-108 L 7475136474) CO2 TOTAL (test code = 40 mmol/L 23-31 H 1665354169) AGAP (test code = 3 2-16 3979226079) BUN (test code = 14 mg/dL 7-23 3991449158) GLUCOSE (test code = 125 mg/dL 70-110 H 9898386569) CREATININE (test code = 0.64 mg/dL 0.60-1.25 5047566049) CALCIUM (test code = 8.5 mg/dL 8.6-10.6 L [id number]) eGFR (test code = 125.9 mL/min/1.73m2 0252013427) OMAYRA (test code = OMAYRA) Association of [...] tests). Lab Interpretation Abnormal (test code = 50693-6) [facility] WITH [id number] 08:27:33 Test Item Value Reference Range Interpretation [...] (test code = 58.4 fL 38.5-51.6 H 08376-3) RDW-CV (test code = 15.9 % 12.1-15.4 H 788-0) PLT (test code = 211 See_Comment [Automated 777-3) message] The sy stem which generated this result transmitted reference range : 150 - 328 10*3/ ?L. The reference r pasquale was not used to interpret this result as normal/abnormal . MPV (test code = 10.2 fL 9.8-13.0 58405-2) NRBC/100 WBC (test 0.0 See_Comment [Automat ed code = 5100143741) message] The system which generated this result transmitted reference range : 0.0 - 10.0 /100 WBCs. The refer ence range was not u sed to interpret th is result as normal/abnormal . NRBC x10^3 (test code See_Comment [Auto mated = 5946058106) message] The s ystem which generated this result transmitted reference range : 10*3/?L. The reference range was not used to interpret this result as normal/abnormal . GRAN MAT (NEUT) % 81.2 % (test code = 770-8) IMM GRAN % (test code 0.50 % = 2987022620) LYMPH % (test code = 10.1 % 736-9) MONO % (test code = 7.5 % 5905-5) EOS % (test code = 0.5 % 713-8) BASO % (test code = 0.2 % 706-2) GRAN MAT x10^3(ANC) 8.16 10*3/uL 1.99-6.95 H (test code = 1008496259) IMM GRAN x10^3 (test 0.05 10*3/uL 0.00-0.06 code = 8612248915) LYMPH x10^3 (test code 1.01 10*3/uL 1.09-3.23 L = 731-0) MONO x10^3 (test code 0.75 10*3/uL 0.36-1.02 = 742-7) EOS x10^3 (test code = 0.05 10*3/uL 0.06-0.53 L 711-2) BASO x10^3 (test code 0.01-0.09 = 704-7) Lab Interpretation Abnormal (test code = 84777-8) [facility] [id number] 12:09:33 Test Item Value Reference Range Interpretation Comments TROPONIN I (test code = 0.004 ng/mL <=0.034 5382508033) OMAYRA (test code = OMAYRA) Reference (Normal) [...] biotin. Lab Interpretation Normal (test code = 75772-9) [facility] [id number] 12:06:16 Test Item Value Reference Range Interpretation Comments NT-proBNP (test code = 135 pg/mL <=125 H 6235394306) OMAYRA (test code = OMAYRA) Biotin has been reported to cause a negative bias, interpret results relative to patient's use of biotin. Lab Interpretation (test Abnormal code = 15510-5) [facility] Metabolic Panel (43787)2023-01-17 11:57:36 Test Item Value Reference Range Interpretation Comments NA (test code = 133 mmol/L 135-145 L 1050272726) K (test code = 5.0 mmol/L 3.5-5.0 1593809584) CL (test code = 91 mmol/L 98-108 L 3691771207) CO2 TOTAL (test code = 33 mmol/L 23-31 H 2678559142) AGAP (test code = 9 2-16 8080494460) BUN (test code = 10 mg/dL 7-23 7929961551) GLUCOSE (test code = 104 mg/dL 70-110 3694432255) CREATININE (test code = 0.63 mg/dL 0.60-1.25 6684571460) TOTAL BILI (test code = 1.2 mg/dL 0.1-1.1 H 6981175217) CALCIUM (test code = 9.0 mg/dL 8.6-10.6 3826977971) T PROTEIN (test code = 6.9 g/dL 6.3-8.2 0006422934) ALBUMIN (test code = 4.4 g/dL 3.5-5.0 8618213949) ALK PHOS (test code = 76 U/L 34-122 6599173906) ALTv (test code = 13 U/L 5-50 1742-6) AST(SGOT) (test code = 13 U/L 13-40 6576785314) eGFR (test code = 128.2 mL/min/1.73m2 5675696027) OMAYRA (test code = OMAYRA) Association of [...] tests). Lab Interpretation Abnormal (test code = 42600-2) [facility] with [id number] 11:30:52 Test Item Value Reference Range Interpretation Comments WBC (test code = 9.66 See_Comment [Automated 4534-2) message] The sy stem which generated this result transmitted reference range : 4.20 - 10.70 10*3/?L. The reference range was not used to interpret this result as normal/abnormal . RBC (test code = 5.00 See_Comment [Automated 276-2) message] The sy stem which generated this [...] (test code = 56.6 fL 38.5-51.6 H 72274-9) RDW-CV (test code = 15.4 % 12.1-15.4 788-0) PLT (test code = 261 See_Comment [Automated 777-3) message] The sy stem which generated this result transmitted reference range : 150 - 328 10*3/ ?L. The reference r pasquale was not used to interpret this result as normal/abnormal . MPV (test code = 10.4 fL 9.8-13.0 63073-2) NRBC/100 WBC (test 0.0 See_Comment [Automat ed code = 5266694177) message] The system which generated this result transmitted reference range : 0.0 - 10.0 /100 WBCs. The refer ence range was not u sed to interpret th is result as normal/abnormal . NRBC x10^3 (test code See_Comment [Auto mated = 9172003378) message] The s ystem which generated this result transmitted reference range : 10*3/?L. The reference range was not used to interpret this result as normal/abnormal . GRAN MAT (NEUT) % 58.9 % (test code = 770-8) IMM GRAN % (test code 0.40 % = 7613933956) LYMPH % (test code = 28.6 % 736-9) MONO % (test code = 10.5 % 5905-5) EOS % (test code = 0.9 % 713-8) BASO % (test code = 0.7 % 706-2) GRAN MAT x10^3(ANC) 5.69 10*3/uL 1.99-6.95 (test code = 8211042678) IMM GRAN x10^3 (test 0.04 10*3/uL 0.00-0.06 code = 2866412267) LYMPH x10^3 (test code 2.76 10*3/uL 1.09-3.23 = 731-0) MONO x10^3 (test code 1.01 10*3/uL 0.36-1.02 = 742-7) EOS x10^3 (test code = 0.09 10*3/uL 0.06-0.53 711-2) BASO x10^3 (test code 0.07 10*3/uL 0.01-0.09 = 704-7) Lab Interpretation Abnormal (test code = 22317-7) [facility] [id number] 10:20:57 Test Item Value Reference Range Interpretation Comments NT-proBNP (test code = 473 pg/mL <=125 H 2133778109) OMAYRA (test code = OMAYRA) Biotin has been reported to cause a negative bias, interpret results relative to patient's use of biotin. Lab Interpretation (test Abnormal code = 56692-5) [facility] TexasLIPID PANEL (54221)(TOTAL CHOLESTEROL, TRIGLYCERIDES, HDL)2022-12-12 10:18:39 Test Item Value Reference Range Interpretation Comments CHOL (test code = 1784955991) 133 mg/dL 120-200 HDL (test code = 5448734093) 38 mg/dL >=40 L HDLC RATIO (test code = 6371923020) 3.5 <=5.0 TRIG (test code = 4178078824) 57 mg/dL 30-170 LDL CHOL (test code = 71409-1) 84 mg/dL <=160 VLDL (test code = 7478803502) 11 mg/dL 5-60 Lab Interpretation (test code = Abnormal 00493-5) [facility]2023-03-26 10:18:19 Test Item Value Reference Range Interpretation Comments MAGNESIUM (test code = 5145545799) 2.0 mg/dL 1.7-2.4 Lab Interpretation (test code = Normal 19734-8) [facility] METABOLIC PAN[facility] (NA, K, CL, CO2, GLUCOSE, BUN, CREATININE, CA)2022-12-12 10:18:14 Test Item Value Reference Range Interpretation Comments NA (test code = 130 mmol/L 135-145 L 9391846137) K (test code = 3.7 mmol/L 3.5-5.0 0058013709) CL (test code = 89 mmol/L 98-108 L 9636648359) CO2 TOTAL (test code = 37 mmol/L 23-31 H 7993067071) AGAP (test code = 4 2-16 1576311728) BUN (test code = 13 mg/dL 7-23 5878013679) GLUCOSE (test code = 120 mg/dL 70-110 H 5022883782) CREATININE (test code = 0.56 mg/dL 0.60-1.25 L 3806421014) CALCIUM (test code = 8.3 mg/dL 8.6-10.6 L 4275416528) eGFR (test code = 146.9 mL/min/1.73m2 7710864942) OMAYRA (test code = OMAYRA) Association of [...] tests). Lab Interpretation Abnormal (test code = 67511-5) [facility] TexasETH[facility]OL2023-03-25 00:54:58 ALCOHOL<10mg/dL12/10/2022 7:54 PM [facility]<10 Xbvkrggn88-101 Toxic>100 Depression of [employer]>400 [facility]TR[facility] [id number] 00:50:14 Test Item Value Reference Range Interpretation Comments TROPONIN I (test code = 0.006 ng/mL <=0.034 0720948428) OMAYRA (test code = OMAYRA) Reference (Normal) [...] biotin. Lab Interpretation Normal (test code = 83648-5) [facility] [id number] 00:47:12 Test Item Value Reference Range Interpretation Comments NT-proBNP (test code = 291 pg/mL <=125 H 6974182426) OMAYRA (test code = OMAYRA) Biotin has been reported to cause a negative bias, interpret results relative to patient's use of biotin. Lab Interpretation (test Abnormal code = 75970-3) [facility] METABOLIC PANEL (15599)2022-12-11 00:41:12 Test Item Value Reference Range Interpretation Comments NA (test code = 126 mmol/L 135-145 L 8886869516) K (test code = 4.0 mmol/L 3.5-5.0 9033068644) CL (test code = 82 mmol/L 98-108 L 9767098619) CO2 TOTAL (test code = 40 mmol/L 23-31 H 0117536208) AGAP (test code = 4 2-16 2708654940) BUN (test code = 16 mg/dL 7-23 4956442764) GLUCOSE (test code = 97 mg/dL 70-110 8281057237) CREATININE (test code = 0.67 mg/dL 0.60-1.25 8026913532) TOTAL BILI (test code = 0.8 mg/dL 0.1-1.3 7585537603) CALCIUM (test code = 8.5 mg/dL 8.6-10.6 L 2123349758) T PROTEIN (test code = 5.9 g/dL 6.3-8.2 L 2432723866) ALBUMIN (test code = 3.5 g/dL 3.5-5.0 1979609045) ALK PHOS (test code = 49 U/L 34-122 3719388188) ALTv (test code = 18 U/L 5-50 1742-6) AST(SGOT) (test code = 11 U/L 13-40 L 7297389421) eGFR (test code = 119.4 mL/min/1.73m2 3406398063) OMAYRA (test code = OMAYRA) Association of [...] tests). Lab Interpretation Abnormal (test code = 68753-1) [facility] WITH [id number] 00:29:08 Test Item Value Reference Range Interpretation [...] RDW-SD (test code = 46.7 fL 38.5-51.6 45471-1) RDW-CV (test code = 13.6 % 12.1-15.4 788-0) PLT (test code = 263 See_Comment [Automated 777-3) message] The sy stem which generated this result transmitted reference range : 150 - 328 10*3/ ?L. The reference r pasquale was not used to interpret this result as normal/abnormal . MPV (test code = 9.7 fL 9.8-13.0 L 77271-7) NRBC/100 WBC (test 0.0 See_Comment [Automat ed code = 9705239308) message] The system which generated this result transmitted reference range : 0.0 - 10.0 /100 WBCs. The refer ence range was not u sed to interpret th is result as normal/abnormal . NRBC x10^3 (test code See_Comment [Auto mated = 7210079308) message] The s ystem which generated this result transmitted reference range : 10*3/?L. The reference range was not used to interpret this result as normal/abnormal . GRAN MAT (NEUT) % 71.6 % (test code = 770-8) IMM GRAN % (test code 0.90 % = 8206482034) LYMPH % (test code = 17.6 % 736-9) MONO % (test code = 8.7 % 5905-5) EOS % (test code = 1.0 % 713-8) BASO % (test code = 0.2 % 706-2) GRAN MAT x10^3(ANC) 7.27 10*3/uL 1.99-6.95 H (test code = 7951908860) IMM GRAN x10^3 (test 0.09 10*3/uL 0.00-0.06 H code = 7237501175) LYMPH x10^3 (test code 1.79 10*3/uL 1.09-3.23 = 731-0) MONO x10^3 (test code 0.88 10*3/uL 0.36-1.02 = 742-7) EOS x10^3 (test code = 0.10 10*3/uL 0.06-0.53 711-2) BASO x10^3 (test code 0.01-0.09 = 704-7) Lab Interpretation Abnormal (test code = 10164-7) [facility] TexasLactic Acid Whole [id number] 00:14:48 Test Item Value Reference Range Interpretation Comments LACTIC ACID (test code = 1.30 mmol/L 0.50-2.20 5325341542) Lab Interpretation (test code = Normal 55544-4) [facility] METABOLIC PANEL (NA, K, CL, CO2, GLUCOSE, BUN, CREATININE, CA)2022-12-04 11:06:33 Test Item Value Reference Range Interpretation Comments NA (test code = 123 mmol/L 135-145 L 0963630764) K (test code = 3.8 mmol/L 3.5-5.0 2531425126) CL (test code = 86 mmol/L 98-108 L 7035749378) CO2 TOTAL (test code = 36 mmol/L 23-31 H 6798786729) AGAP (test code = 1 2-16 L 3748975805) BUN (test code = 22 mg/dL 7-23 3497471907) GLUCOSE (test code = 195 mg/dL 70-110 H 8398147360) CREATININE (test code = 0.76 mg/dL 0.60-1.25 2339243310) CALCIUM (test code = 8.2 mg/dL 8.6-10.6 L 8295751251) eGFR (test code = 103.3 mL/min/1.73m2 0025728947) OMAYRA (test code = OMAYRA) Association of [...] tests). Lab Interpretation Abnormal (test code = 04419-4) [facility] WITH [id number] 10:54:29 Test Item Value Reference Range Interpretation [...] RDW-SD (test code = 44.1 fL 38.5-51.6 03723-4) RDW-CV (test code = 13.6 % 12.1-15.4 788-0) PLT (test code = 247 See_Comment [Automated 777-3) message] The sy stem which generated this result transmitted reference range : 150 - 328 10*3/ ?L. The reference r pasquale was not used to interpret this result as normal/abnormal . MPV (test code = 9.5 fL 9.8-13.0 L 64116-9) NRBC/100 WBC (test 0.0 See_Comment [Automat ed code = 1040912164) message] The system which generated this result transmitted reference range : 0.0 - 10.0 /100 WBCs. The refer ence range was not u sed to interpret th is result as normal/abnormal . NRBC x10^3 (test code See_Comment [Auto mated = 9470061916) message] The s ystem which generated this result transmitted reference range : 10*3/?L. The reference range was not used to interpret this result as normal/abnormal . GRAN MAT (NEUT) % 93.0 % (test code = 770-8) IMM GRAN % (test code 0.90 % = 9272446083) LYMPH % (test code = 3.2 % 736-9) MONO % (test code = 2.9 % 5905-5) EOS % (test code = 0.0 % 713-8) BASO % (test code = 0.0 % 706-2) GRAN MAT x10^3(ANC) 7.94 10*3/uL 1.99-6.95 H (test code = 9853509220) IMM GRAN x10^3 (test 0.08 10*3/uL 0.00-0.06 H code = 3076026914) LYMPH x10^3 (test code 0.27 10*3/uL 1.09-3.23 L = 731-0) MONO x10^3 (test code 0.25 10*3/uL 0.36-1.02 L = 742-7) EOS x10^3 (test code = 0.06-0.53 L 711-2) BASO x10^3 (test code 0.01-0.09 = 704-7) Lab Interpretation Abnormal (test code = 20955-9) [facility] Metabolic Panel (NA, K, CL, CO2, GLUCOSE, BUN, CREATININE, CA)2022-12-03 10:44:53 Test Item Value Reference Range Interpretation Comments NA (test code = 126 mmol/L 135-145 L 1488924418) K (test code = 4.0 mmol/L 3.5-5.0 Slight 7266887095) hemolysis CL (test code = 89 mmol/L 98-108 L 3146085659) CO2 TOTAL (test code 32 mmol/L 23-31 H = 2063826589) AGAP (test code = 5 2-16 1398915777) BUN (test code = 15 mg/dL 7-23 Slight 3705207732) hemolysis GLUCOSE (test code = 115 mg/dL 70-110 H 2940465324) CREATININE (test code 0.63 mg/dL 0.60-1.25 = 2274743262) CALCIUM (test code = 7.7 mg/dL 8.6-10.6 L 8180054075) eGFR (test code = 128.2 mL/min/1.73m2 4773680904) OMAYRA (test code = OMAYRA) Association of [...] tests). Lab Interpretation Abnormal (test code = 72587-2) [facility] TexasMagnesium [id number] 10:44:53 Test Item Value Reference Range Interpretation Comments MAGNESIUM (test code = 2443264870) 1.6 mg/dL 1.7-2.4 L Lab Interpretation (test code = Abnormal 77157-7) [facility] with [id number] 10:39:13 Test Item Value Reference Range Interpretation Comments WBC (test code = 11.40 See_Comment H [Automated 8921-2) message] The system which generated this result [...] RDW-SD (test code = 45.4 fL 38.5-51.6 25304-7) RDW-CV (test code = 13.6 % 12.1-15.4 788-0) PLT (test code = 254 See_Comment [Automated 777-3) message] The system which generated this result transmit anirudh reference range : 150 - 328 10*3/ ?L. The reference range was not u sed to interpret th is result as normal/abnormal . MPV (test code = 10.2 fL 9.8-13.0 04638-0) NRBC/100 WBC (test 0.0 See_Comment [Automat ed code = 7457854772) message] The system which generated this result transmit anirudh reference range : 0.0 - 10.0 /100 WBCs. The reference range was not used to interpret this result as normal/abnormal . NRBC x10^3 (test code See_Comment [Auto mated = 3510144906) message] The system which generated this result transmit anirudh reference range : 10*3/?L. The reference range was not used to interpret this result as normal/abnormal . GRAN MAT (NEUT) % 90.0 % (test code = 770-8) IMM GRAN % (test code 0.90 % = 7010770803) LYMPH % (test code = 5.9 % 736-9) MONO % (test code = 2.8 % 5905-5) EOS % (test code = 0.2 % 713-8) BASO % (test code = 0.2 % 706-2) GRAN MAT x10^3(ANC) 10.27 10*3/uL 1.99-6.95 H (test code = 4807161631) IMM GRAN x10^3 (test 0.10 10*3/uL 0.00-0.06 H code = 9835650670) LYMPH x10^3 (test code 0.67 10*3/uL 1.09-3.23 L = 731-0) MONO x10^3 (test code 0.32 10*3/uL 0.36-1.02 L = 742-7) EOS x10^3 (test code = 0.06-0.53 L 711-2) BASO x10^3 (test code 0.01-0.09 = 704-7) Lab Interpretation Abnormal (test code = 99841-3) [facility] METABOLIC PANEL (NA, K, CL, CO2, GLUCOSE, BUN, CREATININE, CA)2022-12-02 06:20:42 Test Item Value Reference Range Interpretation Comments NA (test code = 124 mmol/L 135-145 L 2740554060) K (test code = 4.5 mmol/L 3.5-5.0 3040288612) CL (test code = 78 mmol/L 98-108 L 5562744130) CO2 TOTAL (test code = 37 mmol/L 23-31 H 3755822260) AGAP (test code = 9 2-16 4518408671) BUN (test code = 14 mg/dL 7-23 8302891714) GLUCOSE (test code = 93 mg/dL 70-110 0783990495) CREATININE (test code = 0.71 mg/dL 0.60-1.25 8428417866) CALCIUM (test code = 9.1 mg/dL 8.6-10.6 7231959957) eGFR (test code = 111.7 mL/min/1.73m2 6380632044) OMAYRA (test code = OMAYRA) Association of [...] tests). Lab Interpretation Abnormal (test code = 44881-5) [facility] TexasTR[facility] [id number] 12:22:32 Test Item Value Reference Range Interpretation Comments TROPONIN I (test code = 0.008 ng/mL <=0.034 5346812539) OMAYRA (test code = OMAYRA) Reference (Normal) [...] biotin. Lab Interpretation Normal (test code = 88050-0) [facility]OL[facility] (NA, K, CL, CO2, GLUCOSE, BUN, CREATININE, CA)2022-12-01 12:11:11 Test Item Value Reference Range Interpretation Comments NA (test code = 124 mmol/L 135-145 L 8707509453) K (test code = 4.2 mmol/L 3.5-5.0 5178829524) CL (test code = 79 mmol/L 98-108 L 3540592892) CO2 TOTAL (test code = 37 mmol/L 23-31 H 4028872246) AGAP (test code = 8 2-16 7149842121) BUN (test code = 16 mg/dL 7-23 0319787795) GLUCOSE (test code = 105 mg/dL 70-110 8466456279) CREATININE (test code = 0.67 mg/dL 0.60-1.25 6899925821) CALCIUM (test code = 8.6 mg/dL 8.6-10.6 7195208051) eGFR (test code = 119.4 mL/min/1.73m2 9809764057) OMAYRA (test code = OMAYRA) Association of [...] tests). Lab Interpretation Abnormal (test code = 94334-5) [facility] WITH [id number] 11:59:32 Test Item Value Reference Range Interpretation [...] RDW-SD (test code = 43.8 fL 38.5-51.6 60387-1) RDW-CV (test code = 13.2 % 12.1-15.4 788-0) PLT (test code = 208 See_Comment [Automated 777-3) message] The system which generated this result transmit anirudh reference range : 150 - 328 10*3/ ?L. The reference range was not u sed to interpret th is result as normal/abnormal . MPV (test code = 9.8 fL 9.8-13.0 55999-3) NRBC/100 WBC (test 0.0 See_Comment [Automat ed code = 9840600886) message] The system which generated this result transmit anirudh reference range : 0.0 - 10.0 /100 WBCs. The reference range was not used to interpret this result as normal/abnormal . NRBC x10^3 (test code See_Comment [Auto mated = 8667524237) message] The system which generated this result transmit anirudh reference range : 10*3/?L. The reference range was not used to interpret this result as normal/abnormal . GRAN MAT (NEUT) % 85.9 % (test code = 770-8) IMM GRAN % (test code 0.50 % = 8919425049) LYMPH % (test code = 6.8 % 736-9) MONO % (test code = 6.3 % 5905-5) EOS % (test code = 0.3 % 713-8) BASO % (test code = 0.2 % 706-2) GRAN MAT x10^3(ANC) 10.44 10*3/uL 1.99-6.95 H (test code = 4642965525) IMM GRAN x10^3 (test 0.06 10*3/uL 0.00-0.06 code = 2819967050) LYMPH x10^3 (test code 0.83 10*3/uL 1.09-3.23 L = 731-0) MONO x10^3 (test code 0.77 10*3/uL 0.36-1.02 = 742-7) EOS x10^3 (test code = 0.04 10*3/uL 0.06-0.53 L 711-2) BASO x10^3 (test code 0.03 10*3/uL 0.01-0.09 = 704-7) Lab Interpretation Abnormal (test code = 98866-6) [facility] METABOLIC PANEL (NA, K, CL, CO2, GLUCOSE, BUN, CREATININE, CA)2022-11-28 17:17:23 Test Item Value Reference Range Interpretation Comments NA (test code = 120 mmol/L 135-145 L 1243947399) K (test code = 4.3 mmol/L 3.5-5.0 3740013975) CL (test code = 77 mmol/L 98-108 L 1902675428) CO2 TOTAL (test code = 40 mmol/L 23-31 H 8539582439) AGAP (test code = 3 2-16 2703361640) BUN (test code = 15 mg/dL 7-23 0938611595) GLUCOSE (test code = 151 mg/dL 70-110 H 7190209810) CREATININE (test code = 0.63 mg/dL 0.60-1.25 3461616825) CALCIUM (test code = 8.2 mg/dL 8.6-10.6 L 0875718335) eGFR (test code = 128.2 mL/min/1.73m2 2617864539) OMAYRA (test code = OMAYRA) Association of [...] tests). Lab Interpretation Abnormal (test code = 78142-6) [facility]MAG[facility]2023-03-12 06:54:10 Test Item Value Reference Range Interpretation Comments MAGNESIUM (test code = 0180250699) 1.6 mg/dL 1.7-2.4 L Lab Interpretation (test code = Abnormal 53067-4) [facility] (NA, K, CL, CO2, GLUCOSE, BUN, CREATININE, CA)2022-11-28 01:29:53 Test Item Value Reference Range Interpretation Comments NA (test code = 120 mmol/L 135-145 L 9278956598) K (test code = 3.9 mmol/L 3.5-5.0 9405275223) CL (test code = 77 mmol/L 98-108 L 9890365216) CO2 TOTAL (test code = 36 mmol/L 23-31 H 4327530629) AGAP (test code = 7 2-16 8755991739) BUN (test code = 17 mg/dL 7-23 2913402785) GLUCOSE (test code = 85 mg/dL 70-110 2300514010) CREATININE (test code = 0.76 mg/dL 0.60-1.25 5678161403) CALCIUM (test code = 8.3 mg/dL 8.6-10.6 L 1322183994) eGFR (test code = 103.3 mL/min/1.73m2 0316009703) OMAYRA (test code = OMAYRA) Association of [...] tests). Lab Interpretation Abnormal (test code = 99253-5) [facility] METABOLIC PANEL (NA, K, CL, CO2, GLUCOSE, BUN, CREATININE, CA)2022-11-27 20:36:26 Test Item Value Reference Range Interpretation Comments NA (test code = 122 mmol/L 135-145 L 5374268824) K (test code = 3.9 mmol/L 3.5-5.0 4288669230) CL (test code = 79 mmol/L 98-108 L 6046517089) CO2 TOTAL (test code = 37 mmol/L 23-31 H 1278448695) AGAP (test code = 6 2-16 5626078269) BUN (test code = 17 mg/dL 7-23 8099266737) GLUCOSE (test code = 113 mg/dL 70-110 H 3852141657) CREATININE (test code = 0.78 mg/dL 0.60-1.25 8100996160) CALCIUM (test code = 7.8 mg/dL 8.6-10.6 L 2827633890) eGFR (test code = 100.2 mL/min/1.73m2 5292297307) OMAYRA (test code = OMAYRA) Association of [...] tests). Lab Interpretation Abnormal (test code = 18012-8) [facility] TexasGLYCOSYLATED HEMOGLOBIN (A1C)2022-11-27 18:21:30 Test Item Value Reference Range Interpretation Comments HGB A1C (test code = 5.9 % 4.0-5.7 H 4548-4) OMAYRA (test code = OMAYRA) Reference RangesNormal: <5.7%Prediabetes: 5.7 - 6.4%Diabetes: > 6.5% Lab Interpretation (test Abnormal code = 24704-7) [facility] [id number] 06:12:58 Test Item Value Reference Range Interpretation Comments TROPONIN I (test code = 0.007 ng/mL <=0.034 [id number]) OMAYRA (test code = OMAYRA) Reference (Normal) [...] biotin. Lab Interpretation Normal (test code = 34415-3) [facility]2023[facility] 06:10:43 ALCOHOL<10mg/dL11/27/2022 12:10 AM [facility]<10 Bekjvqax86-120 Toxic>100 Depression of [employer]>400 [facility] [id number]-[id number] 06:09:37 Test Item Value Reference Range Interpretation Comments NT-proBNP (test code = 311 pg/mL <=125 H [id number]) OMAYRA (test code = OMAYRA) Biotin has been reported to cause a negative bias, interpret results relative to patient's use of biotin. Lab Interpretation (test Abnormal code = 00092-3) [facility]. METABOLIC PANEL (93766)2022-11-27 06:08:02 Test Item Value Reference Range Interpretation Comments NA (test code = 116 mmol/L 135-145 LL [id number]) K (test code = 4.1 mmol/L 3.5-5.0 5747739182) CL (test code = 75 mmol/L 98-108 L 4807179291) CO2 TOTAL (test code = 34 mmol/L 23-31 H 3950935411) AGAP (test code = 7 2-16 2121619785) BUN (test code = 16 mg/dL 7-23 1323801266) GLUCOSE (test code = 70 mg/dL 70-110 4758098814) CREATININE (test code = 0.62 mg/dL 0.60-1.25 0204066548) TOTAL BILI (test code = 1.2 mg/dL 0.1-1.1 H 8695775480) CALCIUM (test code = 8.1 mg/dL 8.6-10.6 L 5938957610) T PROTEIN (test code = 6.3 g/dL 6.3-8.2 4962810551) ALBUMIN (test code = 3.8 g/dL 3.5-5.0 1297249661) ALK PHOS (test code = 58 U/L 34-122 6921418704) ALTv (test code = 15 U/L 5-50 1742-6) AST(SGOT) (test code = 13 U/L 13-40 1314939733) eGFR (test code = 130.6 mL/min/1.73m2 0655093561) OMAYRA (test code = OMAYRA) Association of [...] tests). Lab Interpretation Abnormal (test code = 74112-2) [facility] WITH [id number] 05:45:18 Test Item Value Reference Range Interpretation Comments WBC (test code = 9.18 See_Comment [Automated 1884-2) message] The sy stem which generated this result transmitted reference range : 4.20 - 10.70 10*3/?L. The reference range was not used to interpret this result as normal/abnormal . RBC (test code = 4.49 See_Comment [Automated 732-8) message] The sy stem which generated this [...] RDW-SD (test code = 40.1 fL 38.5-51.6 26586-5) RDW-CV (test code = 12.6 % 12.1-15.4 788-0) PLT (test code = 216 See_Comment [Automated 741-3) message] The sy stem which generated this result transmitted reference range : 150 - 328 10*3/ ?L. The reference r pasquale was not used to interpret this result as normal/abnormal . MPV (test code = 9.4 fL 9.8-13.0 L 24706-5) NRBC/100 WBC (test 0.0 See_Comment [Automat ed code = 6131843130) message] The system which generated this result transmitted reference range : 0.0 - 10.0 /100 WBCs. The refer ence range was not u sed to interpret th is result as normal/abnormal . NRBC x10^3 (test code See_Comment [Auto mated = 3911248228) message] The s ystem which generated this result transmitted reference range : 10*3/?L. The reference range was not used to interpret this result as normal/abnormal . GRAN MAT (NEUT) % 79.1 % (test code = 770-8) IMM GRAN % (test code 0.90 % = 2628095256) LYMPH % (test code = 11.8 % 736-9) MONO % (test code = 6.8 % 5905-5) EOS % (test code = 1.2 % 713-8) BASO % (test code = 0.2 % 706-2) GRAN MAT x10^3(ANC) 7.27 10*3/uL 1.99-6.95 H (test code = 2459602711) IMM GRAN x10^3 (test 0.08 10*3/uL 0.00-0.06 H code = 4904122191) LYMPH x10^3 (test code 1.08 10*3/uL 1.09-3.23 L = 731-0) MONO x10^3 (test code 0.62 10*3/uL 0.36-1.02 = 742-7) EOS x10^3 (test code = 0.11 10*3/uL 0.06-0.53 711-2) BASO x10^3 (test code 0.01-0.09 = 704-7) Lab Interpretation Abnormal (test code = 76155-0) [id number] 09:49:54 Test Item Value Reference Range Interpretation Comments NT-proBNP (test code = 294 pg/mL <=125 H 1536715915) OMAYRA (test code = OMAYRA) Biotin has been reported to cause a negative bias, interpret results relative to patient's use of biotin. Lab Interpretation (test Abnormal code = 60192-2) [facility]. METABOLIC PANEL (04743)2022-11-19 09:41:52 Test Item Value Reference Range Interpretation Comments NA (test code = 120 mmol/L 135-145 L 0640110184) K (test code = 4.4 mmol/L 3.5-5.0 1264387096) CL (test code = 80 mmol/L 98-108 L 0660054705) CO2 TOTAL (test code = 34 mmol/L 23-31 H 9926981464) AGAP (test code = 6 2-16 4001198110) BUN (test code = 10 mg/dL 7-23 9633714156) GLUCOSE (test code = 93 mg/dL 70-110 7392573331) CREATININE (test code = 0.77 mg/dL 0.60-1.25 4906582638) TOTAL BILI (test code = 1.1 mg/dL 0.1-1.5 6528574741) CALCIUM (test code = 8.7 mg/dL 8.6-10.6 6533658276) T PROTEIN (test code = 6.9 g/dL 6.3-8.2 0617392285) ALBUMIN (test code = 4.1 g/dL 3.5-5.0 6859302788) ALK PHOS (test code = 60 U/L 34-122 4219491833) ALTv (test code = 14 U/L 5-50 1742-6) AST(SGOT) (test code = 13 U/L 13-40 3529502441) eGFR (test code = 101.7 mL/min/1.73m2 1181517748) OMAYRA (test code = OMAYRA) Association of [...] tests). Lab Interpretation Abnormal (test code = 22669-7) [facility] WITH [id number] 09:02:29 Test Item Value Reference Range Interpretation Comments WBC (test code = 8.30 See_Comment [Automated 2399-2) message] The sy stem which generated this result transmitted reference range : 4.20 - 10.70 10*3/?L. The reference range was not used to interpret this result as normal/abnormal . RBC (test code = 4.67 See_Comment [Automated 874-8) message] The sy stem which generated this [...] RDW-SD (test code = 42.3 fL 38.5-51.6 27864-6) RDW-CV (test code = 12.9 % 12.1-15.4 788-0) PLT (test code = 252 See_Comment [Automated 777-3) message] The sy stem which generated this result transmitted reference range : 150 - 328 10*3/ ?L. The reference r pasquale was not used to interpret this result as normal/abnormal . MPV (test code = 9.6 fL 9.8-13.0 L 67552-9) NRBC/100 WBC (test 0.0 See_Comment [Automat ed code = 4960751947) message] The system which generated this result transmitted reference range : 0.0 - 10.0 /100 WBCs. The refer ence range was not u sed to interpret th is result as normal/abnormal . NRBC x10^3 (test code See_Comment [Auto mated = 5417141718) message] The s ystem which generated this result transmitted reference range : 10*3/?L. The reference range was not used to interpret this result as normal/abnormal . GRAN MAT (NEUT) % 70.7 % (test code = 770-8) IMM GRAN % (test code 1.00 % = 7760802938) LYMPH % (test code = 16.0 % 736-9) MONO % (test code = 10.5 % 5905-5) EOS % (test code = 1.3 % 713-8) BASO % (test code = 0.5 % 706-2) GRAN MAT x10^3(ANC) 5.87 10*3/uL 1.99-6.95 (test code = 9152370674) IMM GRAN x10^3 (test 0.08 10*3/uL 0.00-0.06 H code = 8129099113) LYMPH x10^3 (test code 1.33 10*3/uL 1.09-3.23 = 731-0) MONO x10^3 (test code 0.87 10*3/uL 0.36-1.02 = 742-7) EOS x10^3 (test code = 0.11 10*3/uL 0.06-0.53 711-2) BASO x10^3 (test code 0.04 10*3/uL 0.01-0.09 = 704-7) Lab Interpretation Abnormal (test code = 71246-0) [facility] METABOLIC PANEL (NA, K, CL, CO2, GLUCOSE, BUN, CREATININE, CA)2022-11-10 23:42:55 Test Item Value Reference Range Interpretation Comments NA (test code = 121 mmol/L 135-145 L 3080684076) K (test code = 4.7 mmol/L 3.5-5.0 7648076946) CL (test code = 82 mmol/L 98-108 L 6543361023) CO2 TOTAL (test code = 34 mmol/L 23-31 H 6624374605) AGAP (test code = 5 2-16 2064426685) BUN (test code = 15 mg/dL 7-23 8558319476) GLUCOSE (test code = 120 mg/dL 70-110 H 0707901298) CREATININE (test code = 0.75 mg/dL 0.60-1.25 8547046674) CALCIUM (test code = 7.7 mg/dL 8.6-10.6 L 6455072454) eGFR (test code = 104.8 mL/min/1.73m2 8282530931) OMAYRA (test code = OMAYRA) Association of [...] tests). Lab Interpretation Abnormal (test code = 34320-2) [facility] METABOLIC PANEL (NA, K, CL, CO2, GLUCOSE, BUN, CREATININE, CA)2022-11-10 17:59:59 Test Item Value Reference Range Interpretation Comments NA (test code = 121 mmol/L 135-145 L 8869912453) K (test code = 4.3 mmol/L 3.5-5.0 0560730661) CL (test code = 81 mmol/L 98-108 L 9306172996) CO2 TOTAL (test code = 38 mmol/L 23-31 H 2692934023) AGAP (test code = 2 2-16 2643451518) BUN (test code = 15 mg/dL 7-23 2091533648) GLUCOSE (test code = 113 mg/dL 70-110 H 0304776840) CREATININE (test code = 0.74 mg/dL 0.60-1.25 9262324855) CALCIUM (test code = 7.5 mg/dL 8.6-10.6 L 1158740930) eGFR (test code = 106.5 mL/min/1.73m2 9820236226) OMAYRA (test code = OMAYRA) Association of [...] tests). Lab Interpretation Abnormal (test code = 05767-5) [facility] [id number] 13:08:23 Test Item Value Reference Range Interpretation Comments NT-proBNP (test code = 177 pg/mL <=125 H 1618285954) OMAYRA (test code = OMAYRA) Biotin has been reported to cause a negative bias, interpret results relative to patient's use of biotin. Lab Interpretation (test Abnormal code = 27263-9) [facility] Texas[facility] [id number] 08:23:33 Test Item Value Reference Range Interpretation Comments TROPONIN I (test code = 0.004 ng/mL <=0.034 8079858690) OMAYRA (test code = MOAYRA) Reference (Normal) Range (defined by the 99th [...] biotin. Lab Interpretation Normal (test code = 38600-8) [facility]. METABOLIC PANEL (27761)2022-11-09 08:12:09 Test Item Value Reference Range Interpretation Comments NA (test code = 123 mmol/L 135-145 L 1334611376) K (test code = 4.2 mmol/L 3.5-5.0 1638493292) CL (test code = 78 mmol/L 98-108 L 8620184940) CO2 TOTAL (test code = 34 mmol/L 23-31 H 1780565987) AGAP (test code = 11 2-16 8205555032) BUN (test code = 8 mg/dL 7-23 1751858711) GLUCOSE (test code = 113 mg/dL 70-110 H 8132821345) CREATININE (test code = 0.87 mg/dL 0.60-1.25 0045628090) TOTAL BILI (test code = 1.2 mg/dL 0.1-1.1 H 3709139105) CALCIUM (test code = 8.8 mg/dL 8.6-10.6 2556773475) T PROTEIN (test code = 7.6 g/dL 6.3-8.2 2287536366) ALBUMIN (test code = 4.5 g/dL 3.5-5.0 5141339829) ALK PHOS (test code = 72 U/L 34-122 0223331296) ALTv (test code = 13 U/L 5-50 1742-6) AST(SGOT) (test code = 13 U/L 13-40 1370971050) eGFR (test code = 88.3 mL/min/1.73m2 2717465902) OMAYRA (test code = OMAYRA) Association of [...] tests). Lab Interpretation Abnormal (test code = 25887-4) [facility] TexasLIP[facility], [id number] 08:11:14 Test Item Value Reference Range Interpretation Comments LIPASE (test code = 7198486154) 108 U/L 0-220 Lab Interpretation (test code = Normal 43529-7) [facility] WITH [id number] 07:59:28 Test Item Value Reference Range Interpretation Comments WBC (test code = 8.95 See_Comment [Automated message] 9490-2) The system [employer] generated this result transmitted ref erence range: 4.20 - 1 0.70 10*3/?L. The re ference range was not u sed to interpret this result as normal/abnor mal. RBC (test code = 5.07 See_Comment [Automated message] 589-8) The system [employer] generated this result transmitted ref erence range: [...] RDW-SD (test code 41.1 fL 38.5-51.6 = 88183-5) RDW-CV (test code 12.5 % 12.1-15.4 = 788-0) PLT (test code = 235 See_Comment [Automated message] 777-3) The system whic h generated this result transmitted ref erence range: 150 - 32 8 10*3/?L. The re ference range was not u sed to interpret this result as normal/abnor mal. MPV (test code = 9.8 fL 9.8-13.0 35203-2) NRBC/100 WBC (test 0.0 See_Comment [Automat ed message] code = 1732705074) The syste m which generated this result transmitted ref erence range: 0.0 - 10 .0 /100 WBCs. The refer ence range was not u sed to interpret this result as normal/abnor mal. NRBC x10^3 (test See_Comment [Automated message] code = 1508699901) The syste m which generated this result transmitted ref erence range: 10*3/?L. The reference range was not used to interpr et this result as normal/abnormal . GRAN MAT (NEUT) % 56.9 % (test code = 770-8) IMM GRAN % (test 0.40 % code = 7299515473) LYMPH % (test code 29.4 % = 736-9) MONO % (test code 9.5 % = 5905-5) EOS % (test code = 3.0 % 713-8) BASO % (test code 0.8 % = 706-2) GRAN MAT 5.09 10*3/uL 1.99-6.95 x10^3(ANC) (test code = 9540838019) IMM GRAN x10^3 0.04 10*3/uL 0.00-0.06 (test code = 8236026005) LYMPH x10^3 (test 2.63 10*3/uL 1.09-3.23 code = 731-0) MONO x10^3 (test 0.85 10*3/uL 0.36-1.02 code = 742-7) EOS x10^3 (test 0.27 10*3/uL 0.06-0.53 code = 711-2) BASO x10^3 (test 0.07 10*3/uL 0.01-0.09 code = 704-7) [facility] URINALYSIS, [id number] 19:05:00 Test Item Value Reference Range Interpretation [...] U APPEAR (test code = clear 3267) [facility] URINALYSIS, [id number] 19:05:00 Test Item Value Reference Range Interpretation [...] U APPEAR (test code = clear 3267) [facility] URINALYSIS, [id number] 19:05:00 Test Item Value Reference Range Interpretation [...] U APPEAR (test code = clear 3267) [facility] Texas[facility] ABDOMEN PELVIS W [id number] 17:53:531. ?No hydronephrosis or nephrolithiasis. 2. ?Mild [...] hernia with mild circumferential distalesophageal thickening (2:16). [place] density within the distal stomach andat the [...] hernia with mild circumferential distalesophageal thickening (2:16). [place] density within the distal stomach andat the [...] small right hydrocele.5. Additional findings as above. [facility] TexasUrinalysis2021-03-26 17:37:38 Test Item Value Reference Range Interpretation Comments APPEARANCE (test code = Cloudy Clear A 7429927614) COLOR (test code = Red Yellow A 8981305396) PH (test code = 4.8-8.0 0543421646) SP GRAVITY (test code = 1.003-1.030 3775366090) GLU U QUAL (test code = 50 mg/dL Normal A 0967522711) BLOOD (test code = 3+ Negative A 9136597267) KETONES (test code = Negative Negative 4025821189) PROTEIN (test code = 100 mg/dL Negative A 2887-8) UROBILIN (test code = Normal Normal 0861543228) BILIRUBIN (test code = Negative Negative 9800377205) NITRITE (test code = Negative Negative 5489862774) LEUK DIANELYS (test code = Negative Negative 4611076240) RBC/HPF (test code = >182 See_Comment H [Autom ated message] 4520034565) The system [employer] generated this result transmit anirudh reference range : 0 - 3 HPF. The refe rence range was not u sed to interpret th is result as normal/abnormal . WBC/HPF (test code = >182 See_Comment H [Autom ated message] 3440015392) The system [employer] generated this result transmit anirudh reference range : 0 - 5 HPF. The refe rence range was not u sed to interpret th is result as normal/abnormal . BACTERIA (test code = Moderate Negative A 5809269356) WBC CLUMPS (test code = See_Comment H [Au tomated message] 7074627942) The system [employer] generated this result transmit anirudh reference range : <=1 HPF. The refere nce range was not u sed to interpret th is result as normal/abnormal . Lab Interpretation (test Abnormal code = 28445-6) [facility] Metabolic Panel (NA, K, CL, CO2, GLUCOSE, BUN, CREATININE, CA)2020-12-12 17:13:57 Test Item Value Reference Range Interpretation Comments NA (test code = 140 mmol/L 135-145 5754589620) K (test code = 4.5 mmol/L 3.5-5.0 1067095585) CL (test code = 100 mmol/L 98-108 3687587625) CO2 TOTAL (test code = 35 mmol/L 23-31 H 1127267895) AGAP (test code = 2-16 6572203334) BUN (test code = 25 mg/dL 7-23 H 3016930327) GLUCOSE (test code = 114 mg/dL 70-110 H 6725811195) CREATININE (test code = 1.18 mg/dL 0.60-1.25 9018457791) CALCIUM (test code = 9.0 mg/dL 8.6-10.6 3714971891) eGFR Calculation mL/min/1.73m2 (Non-) (test code = 6559629239) eGFR Calculation mL/min/1.73m2 () (test code = 8892029836) OMAYRA (test code = OMAYRA) Association of [...] tests). Lab Interpretation Abnormal (test code = 32817-8) [facility] with [id number] 16:56:10 Test Item Value Reference Range Interpretation Comments WBC (test code = See_Comment [Automated 5390-2) message] The sy stem which generated this result transmitted reference range : 4.20 - 10.70 10*3/?L. The reference range was not used to interpret this result as normal/abnormal . RBC (test code = See_Comment [Automated 159-8) message] The sy stem which generated this [...] RDW-SD (test code = 42.9 fL 38.5-51.6 66412-5) RDW-CV (test code = 11.9 % 12.1-15.4 L 788-0) PLT (test code = See_Comment [Automated 777-3) message] The sy stem which generated this result transmitted reference range : 150 - 328 10*3/ ?L. The reference r pasquale was not used to interpret this result as normal/abnormal . MPV (test code = 10.8 fL 9.8-13.0 55012-8) NRBC/100 WBC (test See_Comment [Automat ed code = 5062944629) message] The system which generated this result transmitted reference range : 0.0 - 10.0 /100 WBCs. The refer ence range was not u sed to interpret th is result as normal/abnormal . NRBC x10^3 (test code <0.01 See_Comment [Auto mated = 2155634660) message] The s ystem which generated this result transmitted reference range : 10*3/?L. The reference range was not used to interpret this result as normal/abnormal . GRAN MAT (NEUT) % 63.5 % (test code = 770-8) IMM GRAN % (test code 0.40 % = 8547298830) LYMPH % (test code = 23.9 % 736-9) MONO % (test code = 6.7 % 5905-5) EOS % (test code = 4.3 % 713-8) BASO % (test code = 1.2 % 706-2) GRAN MAT x10^3(ANC) 4.27 10*3/uL 1.99-6.95 (test code = 9342677524) IMM GRAN x10^3 (test 0.03 10*3/uL 0.00-0.06 code = 5293525392) LYMPH x10^3 (test code 1.61 10*3/uL 1.09-3.23 = 731-0) MONO x10^3 (test code 0.45 10*3/uL 0.36-1.02 = 742-7) EOS x10^3 (test code = 0.29 10*3/uL 0.06-0.53 711-2) BASO x10^3 (test code 0.08 10*3/uL 0.01-0.09 = 704-7) Lab Interpretation Abnormal (test code = 34356-4) [facility] URINALYSIS, [id number] 18:56:00 Test Item Value Reference Range Interpretation [...] 3267) Lab Interpretation (test code Abnormal = 95883-5) [facility], [id number] 18:56:00 Test Item Value Reference Range Interpretation [...] 3267) Lab Interpretation (test code Abnormal = 62109-9) [facility] CHEST [id number] 16:22:00 Patient Name: JUAN C MONGE Unit No: [id number] EXAMS: CPT CODE: [id number] XR CHEST 1V 90458 EXAMINATION: - XR CHEST 1V. LOCATION: B2. HISTORY: S/P ICD. COMPARISON: None. TECHNIQUE: Single AP view of the chest was obtained. FINDINGS: The right lung apex is excluded from the mfqwx-ax-tzvu. The heart is normal in size. Left AICD device is present. The lungs are clear. No acute osseous abnormality is i dentified. IMPRESSION: The right lung apex is excluded from the glsvf-ko-azjo. No acute cardiopulmonary abnormality is identified. at 1622 Reported and signed by: Latanya Marshall MD CC: Tyrell Mckeon Technologist: JOSELYN Mathews, RT(R) Transcrpt Date/Tm/Trnsp: 06/19/2020 (1622) t.SDR.PR7 Orig Print D/T: S: 06/19/2020 (2237) [facility]NAME[facility] JUAN C MONGE [address] [address] PHYS: [place] [address] : 1960 AGE: 59 SEX: M LOC: Z.354 A PHONE #: [phone] EXAM DATE: 06/19/2020 STATUS: ADM IN FAX #: [phone] RADIOLOGY NO: PAGE 1 Signed ReportBASIC METABOLIC [id number] 13:17:00 Test Item Value Reference Range Interpretation [...] code = MG/DL 8.7-9.7 CA) Comments to General Neurologist: NURSE WILL BRING SPECIMEN TO LABIs this a LINE draw? N [id number] 13:17:00 Test Item Value Reference Range Interpretation Comments MAGNESIUM (test code = MAG) MG/DL 1.6-2.3 Comments to General Neurologist: NURSE WILL BRING SPECIMEN TO LABIs this a LINE draw? N BASIC METABOLIC [id number] 13:17:00 Test Item Value Reference Range Interpretation [...] 9.1 MG/DL 8.4-10.2 N CA) Comments to General Neurologist: NURSE WILL BRING SPECIMEN TO LABIs this a LINE draw? N [id number] 13:17:00 Test Item Value Reference Range Interpretation Comments MAGNESIUM (test code = MAG) 2.2 MG/DL 1.6-2.3 N Comments to General Neurologist: NURSE WILL BRING SPECIMEN TO LABIs this a LINE draw? N BASIC METABOLIC [id number] 13:16:00 Test Item Value Reference Range Interpretation [...] code = MG/DL 8.7-9.7 CA) Comments to General Neurologist: NURSE WILL BRING SPECIMEN TO LABIs this a LINE draw? N [id number] 13:16:00 Test Item Value Reference Range Interpretation Comments MAGNESIUM (test code = MAG) MG/DL 1.6-2.3 Comments to General Neurologist: NURSE WILL BRING SPECIMEN TO LABIs this a LINE draw? N BASIC METABOLIC [id number] 13:14:00 Test Item Value Reference Range Interpretation [...] code = CA) MG/DL 8.7-9.7 Comments to General Neurologist: NURSE WILL BRING SPECIMEN TO LABIs this a LINE draw? N [id number] 13:14:00 Test Item Value Reference Range Interpretation Comments MAGNESIUM (test code = MAG) MG/DL 1.6-2.3 Comments to General Neurologist: NURSE WILL BRING SPECIMEN TO LABIs this a LINE draw? N BASIC METABOLIC [id number] 13:13:00 Test Item Value Reference Range Interpretation [...] code = CA) MG/DL 8.7-9.7 Comments to General Neurologist: NURSE WILL BRING SPECIMEN TO LABIs this a LINE draw? N [id number] 13:13:00 Test Item Value Reference Range Interpretation Comments MAGNESIUM (test code = MAG) MG/DL 1.6-2.3 Comments to General Neurologist: NURSE WILL BRING SPECIMEN TO LABIs this a LINE draw? N PROTHROMBIN [id number] 13:08:00 Test Item Value Reference Range Interpretation [...] myocar dial infarction. 2.0 - 3.0 3. Jewel Gauger al prosthesis hear t valves, recurre nt systemic emboli sm. 3.0 - 4.5 Comments to General Neurologist: NURSE WILL BRING SPECIMEN TO LABPTT ACTIVATED 2020-06-19 13:08:00 Test Item Value Reference Range Interpretation Comments PTT ACTIVATED (test code = APTT) 30.8 SECONDS 25.1-36.5 N Comments to General Neurologist: NURSE WILL BRING SPECIMEN TO LABCBC W/AUTO [...] 0.00 K/mm3 0.0-0.1 N NRBC#) Comments to General Neurologist: NURSE WILL BRING SPECIMEN TO LABIs this a LINE draw? N COVID 19 Asymptomatic IH [id number] 12:14:00 Test Item Value Reference Range Interpretation [...] Notes Date/Time Note Provider Source 2023-03-20 00:11:00-00:00 [facility] ([facility]) Hospitalist Discharge Summary REPORT#:[id number] REPORT STATUS: Signed DATE:03/20/23 TIME: 0011 PATIENT: JUAN C MONGE UNIT #: [id number] ROOM/BED: [facility] : 56 AGE: 62 SEX: M ATTEND: Rudy Xiao ADM AUTHOR: Rudy Xiao MD * ALL edits or amendments must be made on the el [employer]/computer document * General Information Discharge date: 03/19/23 [...] cigarette smoking or nicotine patches. 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 nicotine patch [...] cigarette smoking or nicotine patches. 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 nicotine patch [...] DAILY. Comments: #30 - SIG Obtained From [facility] CARVEDILOL (COREG) 3.125 MG TAB 3.125 MILLIGRAM [...] normal inspection, painless ran ge of motion Neuro/POULTRY FEED SUPERVISOR: alert, normal speech Skin: dry Psychiatry: abnl [...] or < 18.5 BMI status/follow-up: nml BMI,no assistant counsel needed Electronically Signed by Rudy Xiao MD on 3 at 0016 RPT #:[id number] END OF REPORT 2023-03-19 12:19:00-00:00 [facility] ([facility] Cardiology Progress Note REPORT#:[id number] REPORT STATUS: Signed DATE:03/19/23 TIME: 1219 PATIENT: JUAN C MONGE UNIT #: [id number] ROOM/BED: [address] : 56 AGE: 62 SEX: M ATTEND: Rudy Xiao ADM AUTHOR: Tyrell Mckeon MD * ALL edits or amendments must be made on the [employer] document * Subjective Chief complaint: Dyspnea Patient [...] no edema Musculoskeletal: full range of motion Neuro/POULTRY FEED SUPERVISOR: alert, oriented X 3, CN II-XII intact [...] f/u with Dr. Tenorio as outpatient. at [address] [place] [address] #:[phone] END OF REPORT 2023-03-18 15:47:00-00:00 [facility] [address] [address] [place] [address] PATIENT NAME: JUAN C MONGE ADMIT DATE: 03/15/23 ACCOUNT NO: [id number] ROOM NO: Z.347 AGE: 62 REPORT TYPE: ECHOCARDIOGRAM SEX: M ADMITTING PHYSICIAN:Rudy Xiao MD ATTENDING PHYSICIAN:Rudy Xiao MD *[facility]* [address] [place] [address] Transthoracic Echocardiogram Patient: Juan C Monge Study Date: 03/18/2023 BP: 122 / 66 Location: [facility] URN: [id number] 222 : 1960 Age: 62 Height: 70 in / 177.8 cm Gender: M Weight: 149 .7 lb / 68 kg BMI/BSA: 21.5 kg/m 2 / 1.83 m 2 *Ordering Physician: * Omid Tenorio MD *Interpreting Physician: * Omid Tenorio MD *Dog Beautician: Vick Galdamez Indications: CAD. Study data: Transthoracic echocardiogram. Proced ure: Transthoracic echocardiography was performed. Images were obta ined using a [employer] cardiac ultrasound machine. Image quality was adequate. [...] 2.46 m/sec --------- Pulmonic valve Value Ref IA v, ED 0.94 m/sec --------- Aortic root [...] by Omid Tenorio MD 03/18/2023 15:47 at 1548 PATIENT NAME: JUAN C MONGE 2023-03-18 10:16:00-00:00 [facility] ([facility]) Hospitalist Progress Note REPORT#:[id number] REPORT STATUS: Signed DATE:03/18/23 TIME: 1016 PATIENT: JUAN C MONGE UNIT #: [id number] ROOM/BED: [address] : 56 AGE: 62 SEX: M ATTEND: Rudy Xiao ADM AUTHOR: Jenny Meyers MD R2 * ALL edits or amendments must be made on the Netli/computer document * Jenny Meyers 03/18/23 1016: Subjective Chief complaint: SOB, hypotension HPI: 62 yo M with PMH of COPD on 2L NC, Hypertension, Anxiety, Systolic CHF s/p AICD, Afib on xarelto, CVA and dementia presented as a transfer from [facility] for evaluation of shortness of breath. 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 nicotine patch [...] or < 18.5 BMI status/follow-up: nml BMI,no assistant counsel needed Attestations Attestation needed: teaching physician Rudy Xiao 03/18/23 1743: Attestations Teaching Physician Attestation F/U visit w/ resident: I saw the patient with the resident and . . . agree with the resident's findings and plan. echo unremarkable await aicd interrogation dvt ppx: on xarelto at 1023 Electronically Signed by Rudy Xiao MD on 3 at 1743 RPT #:[id number] END OF REPORT 2023-03-18 06:54:00-00:00 [facility] ([facility] Cardiology Progress Note REPORT#:[id number] REPORT STATUS: Signed DATE:03/18/23 TIME: 653 PATIENT: JUAN C MONGE UNIT #: [id number] ROOM/BED: [address] : 58 AGE: 62 SEX: M ATTEND: Rudy Xiao ADM AUTHOR: Tyrell Mckeon MD * ALL edits or amendments must be made on the Netli/computer document * Subjective Chief complaint: Dyspnea Patient [...] no edema Musculoskeletal: full range of motion Neuro/POULTRY FEED SUPERVISOR: alert, oriented X 3, CN II-XII intact [...] Oxygen support as needed. at 1220 RPT #:[id number] END OF REPORT 2023-03-17 13:48:00-00:00 [facility] ([facility] Hospitalist Progress Note REPORT#:[id number] REPORT STATUS: Signed DATE:03/17/23 TIME: 1347 PATIENT: JUAN C MONGE UNIT #: [id number] ROOM/BED: [address] : 58 AGE: 62 SEX: M ATTEND: Rudy Xiao ADM AUTHOR: Jenny Meyers MD R2 * ALL edits or amendments must be made on the Netli/computer document * Jenny Meyers 03/17/23 1348: Subjective [...] normal inspection, painless ran ge of motion Neuro/POULTRY FEED SUPERVISOR: alert, oriented X 3, normal speech Skin: [...] cigarette smoking or nicotine patches. 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 nicotine patch [...] or < 18.5 BMI status/follow-up: nml BMI,no assistant counsel needed Attestations Attestation needed: teaching physician Rudy Xiao 03/17/23 1405: Attestations Teaching Physician Attestation F/U visit w/ resident: I saw the patient with the resident and . . . agree with the resident's findings and plan. await echo and aicd interrogation cont xarenetta has home o2 at 1511 Electronically Signed by Rudy Xiao MD on 3 at 0024 RPT #:[id number] END OF REPORT 2023-03-17 06:38:00-00:00 [facility] ([facility]) Cardiology Progress Note REPORT#:[id number] REPORT STATUS: Signed DATE:03/17/23 TIME: 0638 PATIENT: JUAN C MONGE UNIT #: [id number] ROOM/BED: [address] : 58 AGE: 62 SEX: M ATTEND: Rudy Xiao MD ADM AUTHOR: Tyrell Mckeon MD * ALL edits or amendments must be made on the Netli/Live[employer] document * Subjective Chief complaint: Dyspnea Patient [...] no edema Musculoskeletal: full range of motion Neuro/POULTRY FEED SUPERVISOR: alert, oriented X 3, CN II-XII intact [...] (Auto) (14 - 44 %) 3.3 L Estill % (Auto) (4 - 13 %) 3.9 L Eos % (Auto) (0 - 6 %) 0.0 Baso % (Auto) (0 - 2 %) 0.1 Neut # (Auto) (2.0 - 7.6 K/mm3) 9.37 H Lymph # (Auto) (1.0 - 3.8 K/mm3) 0.33 L Estill # (Auto) (0.1 - 0.8 K/mm3) 0.40 [...] therapy. Oxygen support as needed. at 1220 [facility] #:[id number] END OF REPORT 2023-03-16 20:57:00-00:00 [facility] ([facility] Cardiology Progress Note REPORT#:[id number] REPORT STATUS: Signed DATE:03/16/23 TIME: 2056 PATIENT: JUAN C MONGE UNIT #: [id number] ROOM/BED: [address] : 58 AGE: 62 SEX: M ATTEND: Rudy Xiao ADM AUTHOR: Tyrell Mckeon MD * ALL edits or amendments must be made on the Netli/computer document * Subjective Chief complaint: Dyspnea Patient [...] no edema Musculoskeletal: full range of motion Neuro/POULTRY FEED SUPERVISOR: alert, oriented X 3, CN II-XII intact [...] (Auto) (14 - 44 %) 3.3 L [place] % (Auto) (4 - 13 %) 3.9 L Eos % (Auto) (0 - 6 %) 0.0 Baso % (Auto) (0 - 2 %) 0.1 Neut # (Auto) (2.0 - 7.6 K/mm3) 9.37 H Lymph # (Auto) (1.0 - 3.8 K/mm3) 0.33 L Est[place] # (Auto) (0.1 - 0.8 K/mm3) 0.40 [...] Oxygen support as needed. at 0637 RPT #:[id number] END OF REPORT 2023-03-16 08:07:00-00:00 [facility] ([facility]) Hospitalist Progress Note REPORT#:[id number] REPORT STATUS: Signed DATE:03/16/23 TIME: 806 PATIENT: JUAN C MONGE UNIT #: [id number] [facility] AGE: 62 SEX: M ATTEND: Rudy Xiao ADM AUTHOR: Jenny Meyers MD R2 * ALL edits or amendments must be made on the Netli/computer document * Jenny Meeyrs 03/16/23 0807: Subjective Chief complaint: SOB, hypotension HPI: 62 yo M with PMH of COPD on 2L NC, Hypertension, Anxiety, Systolic CHF s/p AICD, Afib on xarelto, CVA and dementia presented as a transfer from [facility] for evaluation of shortness of breath. [...] normal inspection, painless ran ge of motion Neuro/POULTRY FEED SUPERVISOR: alert, oriented X 3, normal speech Skin: [...] cigarette smoking or nicotine patches. 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 nicotine patch [...] or < 18.5 BMI status/follow-up: nml BMI,no assistant counsel needed Attestations Attestation needed: teaching physician Rudy Xiao 03/16/232006: Attestations Teaching Physician Attestation F/U visit w/ resident: I saw the patient with the resident and . . . agree with the resident's findings and plan. echo cards folloing aicd interrogation cont angelina has home o2 at 1416 Electronically Signed by Rudy Xiao MD on 3 at 2006 RPT #:[id number] END OF REPORT 2023-03-15 20:17:00-00:00 [id number] [place] [address] PATIENT NAME: JUAN C MONGE ADMIT DATE: 03/15/23 ACCOUNT NO: [id number] ROOM NO: [facility] AGE: 62 REPORT TYPE: ELECTROCARDIOGRAM SEX: M ADMITTING PHYSICIAN:Rudy Xiao MD ATTENDING PHYSICIAN:Rudy Xiao MD Order: [id number] Test Reason : CAD Test Date/Time Stamp: [...] NAME: JUAN C MONGE 22 2023-03-15 16:03:00-00:00 [id number] [place] [address] PATIENT NAME: JUAN C MONGE ADMIT DATE: 03/15/23 ACCOUNT NO: [id number] ROOM NO: Z.347 AGE: 62 REPORT TYPE: [...] the Emergency Room at [facility] in [facility] with complaints of increasing shortness of breath. [...] Dictated: 03/15/2023 16:03:59 Date Transcribed: 03/15/2023 16:59:18 [facility] Receipt ID: [id number] Authenticated by Tyrell Mckeon MD On 03/15/20 06:28:21 PM at 0628 PATIENT NAME: JUAN C MONGE 2023-03-15 10:52:00-00:00 [facility] ([facility]) [facility] Hospitalist History Physical REPORT#:[id number] REPORT STATUS: Signed DATE:03/15/23 TIME: 1052 PATIENT: JUAN C MONGE UNIT #: [id number] ROOM/BED: [facility] : 58 AGE: 62 SEX: M [...] presented as a transfer from [facility] for evaluation of shortness of breath. [...] SULFATE) NEB 03/15 0633 0642 Blood Formation,Coagulation Sig/Imre Start time Last Medication Dose Route Stop [...] no muscle sp asm, no paraspinal tenderness Neuro/POULTRY FEED SUPERVISOR: alert, oriented X 3, normal speech, n [...] (Auto) (1.0 - 3.8 K/mm3) 0.51 L Estill # (Auto) (0.1 - 0.8 K/mm3) 0.10 [...] is alert and oriented x3 #Tobacco abuse assistant counsel on cessation. start nicotine patch VTE ppx: [...] Current BMI: 21.6 BMI status/follow-up: nml BMI,no assistant counsel needed Rudy Xiao 03/15/23 2233: Attestations Teaching [...] Velazquez on 02/18 04/10 at 2343 RPT #:[id number] END OF REPORT 2023-03-15 07:02:00-00:00 [facility] ([facility]) EMERGENCY PROVIDER REPORT REPORT#:[id number] REPORT STATUS: Signed DATE:03/15/23 TIME: 701 PATIENT: JUAN C MONGE UNIT #: [id number] ROOM/BED: [address] AGE: 62 SEX: M PCP PHYS: Undefined Provider SERVICE AUTHOR: Royce Davison MD LOCATION: [facility] * ALL edits or amendments must be made on the Netli/computer document * See Addendum HPI-General Illness Free Text HPI Notes Free Text HPI Notes 62-year-old female past medical history COPD, hypertension, hyperlipidemia, A- fib on Xarelto [facility]. Compla ining of shortness of breath over [...] (Auto) (1.0 - 3.8 K/mm3) 0.51 L Estill # (Auto) (0.1 - 0.8 K/mm3) 0.10 [...] Royce Davison MD on at 1918 RPT #:[id number] END OF REPORT 2020-06-20 06:17:00-00:00 [facility] ([facility]) Cardiology Progress Note REPORT#:[id number] REPORT STATUS: Signed DATE:06/20/20 TIME: 616 PATIENT: JUAN C MONGE UNIT #: [id number] ROOM/BED: [address] : 58 AGE: 59 SEX: M ATTEND: Geoffrey Mckeon MD ADM AUTHOR: Tyrell Mckeon MD * ALL edits or amendments must be made on the Netli/computer document * Subjective Chief Complaint: AICD Patient [...] Potassium Chloride 10 MEQ BID PO Ipratropium [place] 0.5 MG RTQ6H INH Cefazolin Sodium 1,000 [...] no edema Musculoskeletal: full range of motion Neuro/POULTRY FEED SUPERVISOR: alert, oriented X 3, CN II-XII intact [...] % (Auto) (14 - 44 %) 27.8 Estill % (Auto) (4 - 13 %) 8.6 Eos % (Auto) (0 - 6 %) 1.7 Baso % (Auto) (0 - 2 %) 0.6 Neut # (Auto) (2.0 - 7.6 K/mm3) 3.99 Lymph # (Auto) (1.0 - 3.8 K/mm3) 1.82 Estill # (Auto) (0.1 - 0.8 K/mm3) 0.56 [...] Report Impression - Status: SIGNED Entered: 06/19/2020 9427 IMPRESSION: The right lung apex is excluded from the field-o f-view. No acute cardiopulmonary abnormality is identified. Impression By: [email or web address] Zo Marshall MD Diagnosis, Assessment Plan Free Text DxA P Notes Free Text DxA P Notes: IMP: Chronic systolic heart failure s/p [employer] [place] AICD - single lead PLAN: AICD interrogation d/c home if stable. at 0818 [facility] #:[id number] END OF REPORT 2020-06-19 16:03:00-00:00 [id number] [place] [address] PATIENT NAME: JUAN C MONGE ADMIT DATE: 06/19/20 ACCOUNT NO: [id number] ROOM NO: Z.354 AGE: 59 REPORT TYPE: [...] ve heart failure. SURGEON: Tyrell Mckeon MD TAPE MACHINE TAILER: None. ANESTHESIA: Local anesthesia with 1% lidocaine [...] was flushed with antibiotic- containing solution. A 7-Persian sheath was advanced over the wire and [...] DATA: 1. Pulse generator: [employer] Cory model [id number], s erial #[id number]. 2. Right ventricular lead; [employer] Cory model 7120Q/ 58, serial number [id number]. STIMULATION THRESHOLD DATA: Right ventricle R waves [...] Tyrell Mckeon MD WT: OP:KINGS/LUIS ANGEL/ALEX Conf#: [id number]/DID#: [id number] cc: Omid Tenorio MD Authenticated by Tyrell Mckeon MD On 06/23/20 06:02:06 AM at 0602 PATIENT NAME: JUAN C MONGE 21 2020-06-19 13:14:00-00:00 [id number] [place] [address] PATIENT NAME: JUAN C MONGE ADMIT DATE: 06/19/20 ACCOUNT NO: [id number] ROOM NO: Z.354 AGE: 59 REPORT TYPE: ELECTROCARDIOGRAM SEX: M ADMITTING PHYSICIAN:Tyrell Mckeon MD ATTENDING PHYSICIAN:Tyrell Mckeon MD Order: [id number] Test Reason : CHF Test Date/Time Stamp: [...]
--- NOTE | 2023-06-07 13:28 | RAD REPORT ---
EXAM DESCRIPTION: RAD - Chest Single View - 06/07/2023 1:16 pm CLINICAL HISTORY: SOB Chest pain. COMPARISON: <Comparisons> FINDINGS: Portable technique limits examination quality. The lungs are emphysematous but grossly clear. The heart is normal in size. No displaced fractures.Si ngle lead pacer/defibrillator device. IMPRESSION: No acute intrathoracic process suspected. Moderate COPD.
[2023-06-07 13:32] LABS: Absolute Lymphocytes (CBC) 1.2 K/uL (0.7-4.9); Hematocrit 38.5 % (39.6-49.0); Lymphocytes % 15.7 % (15.3-44.8); MCV 95.3 fL (80-100); MPV 7.5 fL (7.6-11.3); Platelets 213 thou/uL (152-406); RBC Red Blood Cell Count 4.04 M/uL (4.33-5.43)
[2023-06-07 13:52] LABS: Potassium 3.3 mEq/L (3.5-5.1); Troponin High Sensitivity 10.1 pg/mL (<58.9)
[2023-06-07] MEDS ORDERED: ALBUTEROL 2.5 MG/3 ML NEB SOL ONE ×2 (14:07→15:52)
[2023-06-07] MEDS ORDERED: IPRATROPIUM BROM 0.5MG/2.5ML ONE (14:07)
--- NOTE | 2023-06-07 14:29 | RAD REPORT ---
EXAM DESCRIPTION: CT - Chest For Pe Angio - 06/07/2023 2:14 pm CLINICAL HISTORY: Chest pain. SOB COMPARISON: Chest For Pe Angio dated 03/20/2023 TECHNIQUE: CT angiogram of the pulmonary arteries was performed with MIP. All CT scans are performed using dose optimization technique as appropriate and may include automated exposure control or mA/KV adjustment according to patient size. FINDINGS: No evidence of pulmonary thromboembolism. No acute aortic finding demonstrated. Advanced COPD. No significant pericardial or pleural fluid. No concerning bony finding. IMPRESSION: No evidence of pulmonary thromboembolism. Advanced COPD.
[2023-06-07] MEDS ORDERED: METHYLPREDNISOLONE 125 MG INJ ONE (15:52)
--- NOTE | 2023-06-07 16:27 | ER ---
Nurse's Notes [facility] Name: Juan C Monge Age: 62 yrs Sex: Male : 1960 Arrival Date: 06/07/2023 Time: 12:20 Bed 17 Private MD: Diagnosis: COPD/ Chronic obstructive pulmonary disease with (acute) exacerbation Presentation: 06/07 12:24 Chief complaint: Patient states: "I've been SOB for the past 4 days. It's getting worse mb9 and my home oxygen doesn't help at all. I've been coughing a little bit". Coronavirus screen: Vaccine status: Patient reports receiving the 2nd dose of the covid vaccine. Date June 07, 2023. Ebola Screen: No symptoms or risks identified at this time. Initial Sepsis Screen: Does the patient meet any 2 criteria? No. Patient's initial sepsis screen is negative. Does the patient have a suspected source of infection? No. Patient's initial sepsis screen is negative. Risk Assessment: Do you want to hurt yourself or someone else? Patient reports no desire to harm self or others. Onset of symptoms was June 07, 2023. 12:24 Method Of Arrival: Wheelchair mb9 12:24 Acuity: JESSI 3 mb9 12:48 Acuity: JESSI 2 mb9 Triage Assessment: 12:27 General: Appears uncomfortable, Behavior is cooperative. Pain: Denies pain. Neuro: mb9 Acosta Agitation-Sedation Scale (RASS): 0 - Alert and Calm Level of Consciousness is awake, alert, obeys commands, Oriented to person, place, time, situation, Appropriate for age. Cardiovascular: Patient's skin is warm and dry. Respiratory: Airway is patent Respiratory effort is labored, Respiratory pattern is tachypnea. GI: Abdomen is flat, non-distended. : Derm: Skin is pink, warm \\T\\ dry. Musculoskeletal: Range of motion: intact in all extremities. Historical: - Allergies: 12:26 No Known Allergies; mb9 - Home Meds: 12:26 None [Active]; mb9 - PMHx: 12:26 Atrial Fib; COPD; CVA; Hyperlipidemia; Hypertension; Myocardial infarction; skull mb9 fracture; - PSHx: 12:26 Appendectomy; mb9 - Immunization history:: Adult Immunizations up to date. - Social history:: Smoking status: Patient reports the use of cigarette tobacco products, smokes one-half pack cigarettes per day. Screenin:01 [facility] ED Fall Risk Assessment (Adult) History of falling in the last 3 months, db including since admission No falls in past 3 months (0 pts). Abuse screen: Denies threats or abuse. Denies injuries from another. Nutritional screening: No deficits noted. Tuberculosis screening: No symptoms or risk factors identified. Assessment: 12:51 Reassessment: Patient appears in no apparent distress at this time. Patient and/or db family updated on plan of care and expected duration. Pain level reassessed. Patient is alert, oriented x 3, equal unlabored respirations, skin warm/dry/pink. SHORTNESS OF BREATH X 4 DAYS. RAN OUT OF O2 AT HOME. PLACED ON 3L IN TRIAGE WAS 90% ON ROOM AIR. General: Appears in no apparent distress. comfortable, Behavior is calm, cooperative. Neuro: Level of Consciousness is awake, alert, obeys commands, Oriented to person, place, time, situation, Speech is normal. 13:58 Reassessment: PATIENT TO CT. db 14:12 Reassessment: Patient appears in no apparent distress at this time. Patient and/or db family updated on plan of care and expected duration. Pain level reassessed. Patient is alert, oriented x 3, equal unlabored respirations, skin warm/dry/pink. Patient states feeling better. Vital Signs: 12:24 BP 140 / 90; Pulse 93; Resp 24; Temp 97.9; Pulse Ox 100% on 3 lpm NC; Weight 58.97 kg; mb9 Height 5 ft. 10 in. ; Pain 0/10; 12:53 BP 142 / 79; Pulse 87; Resp 22; Pulse Ox 100% on 2 lpm NC; db 13:30 BP 167 / 84; Pulse 99; Resp 16; Pulse Ox 98% on 2 lpm NC; db 14:30 BP 136 / 72; Pulse 84; Resp 18; Pulse Ox 100% on 2 lpm NC; db 15:30 BP 158 / 83; Pulse 95; Resp 18; Pulse Ox 99% on 2 lpm NC; db 16:30 BP 139 / 77; Pulse 95; Resp 18; Pulse Ox 91% on R/A; db 12:24 Body Mass Index 18.65 (58.97 kg, 177.8 cm) [facility] 12:24 Pain Scale: Adult mb9 ED Course: 12:24 Patient arrived in ED. mb9 12:26 Triage completed. mb9 12:27 Arm band placed on. mb9 12:30 Kimberli Gallardo NP is PHCP. aj3 12:30 Brendon Gaspar DO is Attending Physician. aj3 12:50 Clarisse Melton, RN is Primary Nurse. db 13:15 Inserted saline lock: 22 gauge in left forearm, using aseptic technique. Blood db collected. 13:18 XRAY Chest (1 view) In Process Unspecified. EDMS 14:11 Patient has correct armband on for positive identification. Bed in low position. Side db rails up X 1. Client placed on continuous cardiac and pulse oximetry monitoring. NIBP monitoring applied. Warm blanket given. 14:16 CT Chest For PE Angio In Process Unspecified. EDMS 16:44 Provided Education on: DISCHARGE. db 16:44 No provider procedures requiring assistance completed. IV discontinued, intact, db bleeding controlled, No redness/swelling at site. Administered Medications: 14:20 Drug: DuoNeb Nebulize (3:1) (2.5 mg - 0.5 mg) 3 ml Nebulizer once Route: Nebulizer; 7 16:44 Follow up: Response: No adverse reaction db 16:08 Drug: MethylPrednisoLONE IVP 125 mg IVP once Route: IVP; Site: right antecubital; db 16:49 Follow up: Response: No adverse reaction db 16:08 Drug: Albuterol Inhalation 2.5 mg Inhalation once Route: Inhalation; db 16:44 Follow up: Response: No adverse reaction db Medication: 16:44 VIS not applicable for this client. db Outcome: 16:27 Discharge ordered by MD. aj3 16:44 Discharged to home via wheelchair, db 16:44 Condition: stable 16:44 Discharge instructions given to patient, Instructed on discharge instructions, follow up and referral plans. Prescriptions given X 1, 16:49 Patient left the ED. db Signatures: Dispatcher [employer] EDMS Janell Guillen, RN RN jl7 Kimberli Gallardo, JOHN HERB COUNSELOR aj3 Clarisse Melton, RN RN Marika Alejo RN RN mb9 Corrections: (The following items were deleted from the chart) 16:49 13:30 BP 167 / 84; Pulse 99bpm; Resp 16bpm; Pulse Ox 98% RA; db db
[2023-06-07 17:42] VITALS: TEMP 97.9
[2023-06-07 17:49] VITALS: BP 139/77; O2SAT 91
--- NOTE | 2023-06-08 14:33 | EKG ---
Test Date: 2023-06-07 Test Time: 13:28:23 Utility Worker: RAY MEASUREMENT RESULTS: Intervals: Rate: 88 CO: 138 QRSD: 84 QT: 352 QTc: 425 [place]: P: 79 CO: 138 QRS: 84 T: 81 INTERPRETIVE STATEMENTS: Normal sinus rhythm Normal ECG Compared to ECG 05/28/2023 16:55:05 No significant changes Electronically Signed On 06-08-23 14:31:14 CDT by Ric Pandya
--- NOTE | 2023-06-08 16:50 | EDPHYS ---
Physician Documentation [facility] Name: Juan C Monge Age: 62 yrs Sex: Male : 1960 Arrival Date: 06/07/2023 Time: 12:20 Bed 17 Private MD: ED Physician Brendon Gaspar HPI: 06/07 12:45 This 62 yrs old Male presents to ER via Wheelchair with complaints of Shortness Of aj3 Breath. 12:45 Patient has COPD, A-fib and previous KS here with shortness of breath its been more aj3 severe for the last few days. He was recently seen here in the hospital for similar concerns and discharged home but did not take the medications that were prescribed to him. He has been using his albuterol inhaler without any relief. No reports of any chest pain, dizziness, fever, chills. Historical: - Allergies: 12:26 No Known Allergies; mb9 - Home Meds: 12:26 None [Active]; mb9 - PMHx: 12:26 Atrial Fib; COPD; CVA; Hyperlipidemia; Hypertension; Myocardial infarction; skull mb9 fracture; - PSHx: 12:26 Appendectomy; mb9 - Immunization history:: Adult Immunizations up to date. - Social history:: Smoking status: Patient reports the use of cigarette tobacco products, smokes one-half pack cigarettes per day. ROS: 12:45 Constitutional: Negative for fever, chills, and weight loss, Neck: Negative for injury, aj3 pain, and swelling, Cardiovascular: Negative for chest pain, palpitations, and edema, 12:45 Abdomen/GI: Negative for abdominal pain, nausea, vomiting, diarrhea, and constipation, MS/Extremity: Negative for injury and deformity, Skin: Negative for injury, rash, and discoloration, Neuro: Negative for syncope, headache, weakness, numbness, tingling, and seizure, 12:45 Respiratory: Positive for cough, orthopnea, shortness of breath, Exam: 12:45 Constitutional: This is a well developed, well nourished patient who is awake, alert, aj3 and in no acute distress. Head/Face: Normocephalic, atraumatic. Neck: Supple, full range of motion without nuchal rigidity. Chest/axilla: Normal chest wall appearance and motion. Nontender with no deformity. No lesions are appreciated. Cardiovascular: Regular rate and rhythm with a normal S1 and S2. No gallops, murmurs, or rubs. Normal PMI, no JVD. No pulse deficits. 12:45 Respiratory: Exam negative for intercostal retractions, mild respiratory distress is noted, Respirations: tachypnea, Breath sounds: decreased breath sounds, 13:28 ECG was reviewed by the Attending Physician. aj3 Vital Signs: 12:24 BP 140 / 90; Pulse 93; Resp 24; Temp 97.9; Pulse Ox 100% on 3 lpm NC; Weight 58.97 kg; mb9 Height 5 ft. 10 in. ; Pain 0/10; 12:53 BP 142 / 79; Pulse 87; Resp 22; Pulse Ox 100% on 2 lpm NC; db 13:30 BP 167 / 84; Pulse 99; Resp 16; Pulse Ox 98% on 2 lpm NC; db 14:30 BP 136 / 72; Pulse 84; Resp 18; Pulse Ox 100% on 2 lpm NC; db 15:30 BP 158 / 83; Pulse 95; Resp 18; Pulse Ox 99% on 2 lpm NC; db 16:30 BP 139 / 77; Pulse 95; Resp 18; Pulse Ox 91% on R/A; db 12:24 Body Mass Index 18.65 (58.97 kg, 177.8 cm) mb9 12:24 Pain Scale: Adult mb9 MDM: 12:30 Patient medically screened. aj3 15:00 Differential diagnosis: CHF exacerbation, Chronic Obstructive Pulmonary Disease aj3 Myocardial Infarction pneumonia, pulmonary edema, Pulmonary Embolism Unstable Angina. 15:00 Data reviewed: vital signs, nurses notes, lab test result(s), EKG, radiologic studies, aj3 CT scan, plain films, I have discussed the patient's presentation/case with the attending Emergency Department Physician;. I considered the following discharge prescriptions or medication management in the emergency department Medications were administered in the Emergency Department. See MAR. Independent interpretation of the following test(s) in the Emergency Department EKG: See my EKG interpretation above X-Ray: My interpretation is no opacities noted. playground monitor: rate is 84 beats/min, Rhythm is normal sinus rhythm, Interpretation: normal rate, normal rhythm. Historians other than the Patient: Friend: . Care significantly affected by the following chronic conditions: Chronic Obstructive Pulmonary Disease, CAD. Counseling: I had a detailed discussion with the patient and/or guardian regarding the historical points, exam findings, and any diagnostic results supporting the discharge/admit diagnosis, lab results, radiology results, to return to the emergency department if symptoms worsen or persist or if there are any questions or concerns that arise at home. 06/07 12:30 Order name: Basic Metabolic Panel; Complete Time: 14:52 06/07 12:30 Order name: CBC with Diff; Complete Time: 13:37 06/07 12:30 Order name: D-Dimer; Complete Time: 13:47 06/07 12:30 Order name: NT PRO-BNP; Complete Time: 14:52 06/07 12:30 Order name: Troponin HS; Complete Time: 14:52 06/07 12:30 Order name: XRAY Chest (1 view); Complete Time: 13:37 06/07 13:48 Order name: CT Chest For PE Angio; Complete Time: 14:52 06/07 12:30 Order name: EKG; Complete Time: 12:31 06/07 12:30 Order name: Cardiac monitoring; Complete Time: 13:37 06/07 12:30 Order name: EKG - Nurse/Tech; Complete Time: 13:37 06/07 12:30 Order name: IV Saline Lock; Complete Time: 13:37 06/07 12:30 Order name: Labs collected and sent; Complete Time: 13:38 06/07 12:30 Order name: O2 Per Protocol; Complete Time: 13:38 06/07 12:30 Order name: O2 Sat Monitoring; Complete Time: 13:38 3 EC:28 Rate is 88 beats/min. Rhythm is regular. QRS [place] is Normal. SC interval is normal. QRS aj3 interval is normal. QT interval is normal. No ST changes noted. Clinical impression: Normal ECG. Interpreted by me. Reviewed by me. Administered Medications: 14:20 Drug: DuoNeb Nebulize (3:1) (2.5 mg - 0.5 mg) 3 ml Nebulizer once Route: Nebulizer; jl7 16:44 Follow up: Response: No adverse reaction db 16:08 Drug: MethylPrednisoLONE IVP 125 mg IVP once Route: IVP; Site: right antecubital; db 16:49 Follow up: Response: No adverse reaction db 16:08 Drug: Albuterol Inhalation 2.5 mg Inhalation once Route: Inhalation; db 16:44 Follow up: Response: No adverse reaction db Disposition: 18:56 I was immediately available on-site in the Emergency Department for consultation in the ms3 care of the patient. Disposition Summary: 06/07/23 16:27 Discharge Ordered Notes: Location: Home aj3 Problem: new aj3 Symptoms: have improved aj3 Condition: Stable aj3 Diagnosis - COPD/ Chronic obstructive pulmonary disease with (acute) exacerbation aj3 Followup: aj3 - With: Private Physician - When: - Reason: Recheck today's complaints, Re-evaluation by your physician Followup: aj3 - With: Emergency Department - When: - Reason: Trouble breathing, Worsening of condition Discharge Instructions: - Discharge Summary Sheet aj3 - Chronic Obstructive Pulmonary Disease aj3 Forms: - Medication Reconciliation Form aj3 - Thank You Letter aj3 - Antibiotic Education aj3 - Prescription Opioid Use aj3 - Patient Portal Instructions aj3 - Leadership Thank You Letter aj3 Prescriptions: - Prednisone 20 mg Oral Tablet - take 2 tablets ORAL route once daily for 5 days; 10 tablet; Refills: 0, Product aj3 Selection Permitted Signatures: Dispatcher [employer] Janell Hatfield RN RN jl7 Brendon Gaspar DO DO ms3 Kimberli Gallardo, JOHN DIESEL MACHINIST aj3 Clarisse Melton, RN RN db Marika Choudhury RN RN mb9
== END 2023-06-07 16:49 | disposition home or self-care (01) ==
LOC: ER 12:20
DX: J44.1 Chronic obstructive pulmonary disease with (acute) exacerbation (principal); Z99.81 Dependence on supplemental oxygen; I10 Essential (primary) hypertension; F17.210 Nicotine dependence, cigarettes, uncomplicated; Z86.73 Personal history of transient ischemic attack (TIA), and cerebral infarction without residual deficits
CPT/HCPCS: 85025; 80048; 36415; 85379; 84484; 83880; 71275; 71045; Q9967; J7613 ×2; J7644; J2930; 93005

== ENCOUNTER 2023-07-03 06:35 | Inpatient (IN) | payer OTHER ==
--- OUTSIDE RECORDS SUMMARY | 2023-07-03 06:47 | XMS REPORT | Continuity of Care Document ---
:1960 Author Organization [facility] t Address [address] [facility] [address] [place] [address] Care Team Providers Name Role Phone MILY GOODWIN Primary Care Physician Unavailable HERMINIA OH Attending Clinician Unavailable NOMI MARY Attending Clinician Unavailable NOMI MARY Attending Clinician Unavailable Nomi Mary DO Attending Clinician Marika Monge RN Attending Clinician MARELY WATTERS Attending Clinician Unavailable MARELY WATTERS Attending Clinician Unavailable Rudy Xiao Attending Clinician Unavailable CARL ORLANDO Attending Clinician Unavailable CARL ORLANDO Attending Clinician Unavailable MILY GOODWIN Attending Clinician Unavailable Doctor Unassigned, [place] Attending Clinician Unavailable Mily Goodwin MD Attending Clinician [phone] Alma Rosa9 Uday ZAMORA, Taylor Mary Attending Clinician Unavailable TRAVIS ZENG Attending Clinician Unavailable Iza Portillo S Attending Clinician Francisca Bryant DO Attending Clinician [...] Clinician Unavailable Marisol Devlin MD Attending Clinician Dedrick Toth MD Attending Clinician Cecy Caro LVN Attending Clinician Carlo Valdez Attending Clinician Abi Swan MD Attending Clinician Clive Contreras MD Attending Clinician ERNESTO PIPER Attending Clinician Unavailable ERNESTO PIPER Attending Clinician Unavailable Krissy Powers MD Attending Clinician LEILA CHAPA Attending Clinician Unavailable Leila Chapa MD Attending Clinician Violeta LEAD BUSINESS ANALYSTJeanette Faith Attending Clinician Pob, Adc Lab Main Attending Clinician Unavailable Gokul Turner MD Attending Clinician GOKUL TURNER Attending Clinician Unavailable , Adc Surg Spec Procedure Attending Clinician Unavailable JEANETTE MCDANIEL Attending Clinician Unavailable Chris ZAMORA, Herminia Chandler [...] Type Policy Number Effective Date Expiration Date [facility] [id number] 2018 MEDICARE GOLD 00:00:00 HUMANA CHOICE [id number] 2022 00:00:00 Problems Condition Condition Condition Status Onset Resolution Last Treating Co mments Source Name Details Category Date Date Treatment Clinician Date 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 5-31 it y of ion ion 00:00: [address] Hypotensio Hypotensio Disease Active U barers n, n, 5-30 ity of unspecifie unspecifie [...] Active 2018-09 Univers 2-07 ity of 00:00: [place] 00 Medical Branch Acute Acute Disease Active 2018-09 Univers respirator respirator 2-07 it y of [place] distress [place] Left heart Left heart Disease Active 2013-09 U nivers failure failure 2-23 ity of 00:00: [place] 00 Medical Branch Closed Closed Disease Active 2013-09 Overview: Univer s fracture fracture 2-13 [place] ity of of zygoma of zygoma 00:00: g of this [place] 00 note Medical might be Branch different from the original. Chronic Fracture - not acute Fall Fall Disease Active 2013-09 Univers 2-12 ity of 00:00: [place] 00 Medical Branch Atrial Atrial Disease Active 2013-09 Univers fibrillati fibrillati 2- it y of on on 00:00: [place] 00 Medical Branch VT VT Disease Active 2013-09 Univers (ventricul (ventricul 10-28 it y of ar ar 00:00: [place] tachycardi tachycardi 00 Me dical a) a) Branch Allergies, Adverse Reactions, Alerts Allergy Allergy Status Severity Reaction(s) Onset Inactive Treating Comm ents Source Name Type Date Date Clinician No Known DA Active U 2019-09 [facility]01 [place] 00:[facility]: [address] No Known DA Active U 2019-09 [facility] Allergie 0-01 [place] 00:00: [address] NO KNOWN Drug Active [facility] ALLERGIE Class ity of S [facility] Branch Social History Social Habit Start Date Stop Date Quantity Comments Source Gender identity [facility] Sexual orientation Univer sity of [facility] [place] [facility] Branch History of tobacco Passive smoker Un iversity of use [place] [facility] History SDOH Social Unive rsity of Connections [facility] Med ical Together Branch History SDOH Social Unive rsity of [facility] Medical Branch History SDOH Social Unive rsity of C-nario [place] [facility] Membership Branch History SDOH Social Unive rsity of [facility] Medical Meetings Branch History of Social 2023-03-01 2023-03-01 Univers ity of function 00:00:00 00:00:00 [facility] [place] [facility] Branch Alcohol intake 2023-03-01 2023-03-01 Current drinker Unive rsity of 00:00:00 00:00:00 of alcohol [place] [facility] (finding) Branch History SDOH 2023-02-18 2023-02-18 2 University o f Housing Unable to 00:00:00 00:00:00 [place] M edical Pay Branch History SDOH 2023-02-18 2023-02-18 1 University o f Housing Places 00:00:00 00:00:00 [place] Medi lucho Lived Branch History SDOH 2023-02-18 2023-02-18 2 University o f Housing Homeless 00:00:00 00:00:00 [place] Me dical Last Year Branch History SDOH [...] University o f Physical Activity 00:00:00 00:00:00 [place] M edical DPW Branch History SDOH 2023-02-18 2023-02-18 0 University o f Physical Activity 00:00:00 00:00:00 [place] M edical MPS Branch History SDOH 2023-02-18 [...] University o f Transport Non-Med 00:00:00 00:00:00 [place] M edical Branch Exposure to 2023-02-05 2023-02-15 Not sure University of SARS-CoV-2 (event) 00:00:00 15:15:00 [place] [facility] History SDOH 2022-12-02 2022-12-02 3 University o f Alcohol Std Drinks 00:00:00 00:00:00 [place] [facility] History SDOH 2022-12-02 2022-12-02 1 University o f Alcohol Binge 00:00:00 00:00:00 [facility] Cigarettes smoked 2022-11-09 2022-11-09 Univers ity of current (pack per 00:00:00 00:00:00 [place] ) - Reported Branch Tobacco use and 2022-11-09 2022-11-09 User of Universit y of exposure 00:00:00 00:00:00 smokeless [facility] [place] [facility] tobacco Branch Education 2022-11-09 2022-11-09 13 [facility] 00:00:00 00:00:00 [facility] Alcohol Comment 2014-08-27 2014-08-27 8 drinks per day Uni versity of 00:00:00 00:00:00 [facility] Sex Assigned [birth year] [facility] Smoking Status Start Date Stop Date Source Smokes tobacco daily 2022-11-09 00:00:00 Univers ity of [facility] Medications Ordered Filled Start Stop Current Ordering Indication Dosage Frequency Signature Comments Components Source Medication Medication Date Date Medication? Clinician (SIG) Name Name fluticasone Yes 1{puff} Inhale 1 Univers propion-bella 8-01 Puff in ity o f meteroL 00:00: the [place] (ADVAIR 00 morning Medical DISKUS) and 1 Puff Branch 250-50 in the mcg/dose evening. inhalation disk tiotropium Yes 18ug Inhale 1 Uni vers 18 mcg 8-01 capsule in ity of inhalation 00:00: the [place] 00 morning. Medical Branch albuterol Yes 2{puff} Inhale 2 U nivers 90 8-01 Puffs ity of mcg/actuati 00:00: every 4 [place] as on inhaler 00 (four) Medical hours as Branch needed for Wheezing or Shortness of Breath. ipratropium Yes [id number] 3mL Inhale 3 Univers -albuteroL 8-01 mL every 6 ity of 0.5 mg-3 00:00: (six) [place] mg(2.5 mg 00 hours as Medica l base)/3 mL needed for Bra njh nebulizer Wheezing. solution fluticasone 3-0 Yes 1{puff} Inhale 1 Univers propion-bella 8-01 Puff in ity o f meteroL 00:00: the [place] (ADVAIR 00 morning Medical DISKUS) and 1 Puff Branch 250-50 in the mcg/dose evening. inhalation disk tiotropium 3-0 Yes 18ug Inhale 1 Uni vers 18 mcg 8-01 capsule in ity of inhalation 00:00: the [place] 00 morning. Medical Branch albuterol 3-0 Yes 2{puff} Inhale 2 U nivers 90 8-01 Puffs ity of mcg/actuati 00:00: every 4 [place] as on inhaler 00 (four) Medical hours as Branch needed for Wheezing or Shortness of Breath. ipratropium 3-0 Yes [id number] 3mL Inhale 3 Univers -albuteroL 8-01 mL every 6 ity of 0.5 mg-3 00:00: (six) [place] mg(2.5 mg 00 hours as Medica l base)/3 mL needed for [facility] nebulizer Wheezing. solution fluticasone 3-0 Yes 1{puff} Inhale 1 Univers propion-bella 8-01 Puff in ity o f meteroL 00:00: the [place] (ADVAIR 00 morning Medical DISKUS) and 1 Puff Branch 250-50 in the mcg/dose evening. inhalation disk tiotropium 3-0 Yes 18ug Inhale 1 Uni vers 18 mcg 8-01 capsule in ity of inhalation 00:00: the [place] 00 morning. Medical Branch albuterol 3-0 Yes 2{puff} Inhale 2 U nivers 90 8-01 Puffs ity of mcg/actuati 00:00: every 4 [place] as on inhaler 00 (four) Medical hours as Branch needed for Wheezing or Shortness of Breath. ipratropium 2023-0 Yes [id number] 3mL Inhale 3 Univers -albuteroL 8-01 mL every 6 ity of 0.5 mg-3 00:00: (six) [place] mg(2.5 mg 00 hours as Medica l base)/3 mL needed for [facility] nebulizer Wheezing. solution albuterol 3-0 Yes [id number] 2.5mg Inhale 3 Univers 2.5 mg /3 6-15 mL every 4 ity of mL (0.083 00:00: (four) [place] %) 00 hours. May Medical nebulizer also Branch solution nebulize one extra every 6 hours. albuterol 3-0 Yes [id number] 2.5mg Inhale 3 Univers 2.5 mg /3 6-15 mL every 4 ity of mL (0.083 00:00: (four) [place] %) 00 hours. May Medical nebulizer also Branch solution nebulize one extra every 6 hours. albuterol 3-0 Yes [id number] 2.5mg Inhale 3 Univers 2.5 mg /3 6-15 mL every 4 ity of mL (0.083 00:00: (four) [place] %) 00 hours. May Medical nebulizer also Branch solution nebulize one extra every 6 hours. albuterol 3-0 Yes [id number] 2.5mg Inhale 3 Univers 2.5 mg /3 6-15 mL every 4 ity of mL (0.083 00:00: (four) [place] %) 00 hours. May Medical nebulizer also Branch solution nebulize one extra every 6 hours. donepeziL 5 2022-0 Yes [id number] 5mg Take 1 Univers mg tablet 6-13 tablet by ity o f 00:00: mouth in [place] the Medical morning. Branch memantine 5 2022-0 Yes [id number] 5mg Take 1 Univers mg tablet 6-13 tablet by ity o f 00:00: mouth in [place] 00 the Medical morning. Branch donepeziL 5 2022-0 Yes [id number] 5mg Take 1 Univers mg tablet 6-13 tablet by ity o f 00:00: mouth in [place] 00 the Medical morning. Branch memantine 5 2022-0 Yes [id number] 5mg Take 1 Univers mg tablet 6-13 tablet by ity o f 00:00: mouth in [place] the Medical morning. Branch donepeziL 5 2022-0 Yes [id number] 5mg Take 1 Univers mg tablet 6-13 tablet by ity o f 00:00: mouth in [place] the Medical morning. Branch memantine 5 2022-0 Yes [id number] 5mg Take 1 Univers mg tablet 6-13 tablet by ity o f 00:00: mouth in [place] 00 the Medical morning. Branch donepeziL 5 3-0 Yes [id number] 5mg Take 1 Univers mg tablet 6-13 tablet by ity o f 00:00: mouth in [place] 00 the Medical morning. Branch memantine 5 2022-0 Yes [id number] 5mg Take 1 Univers mg tablet 6-13 tablet by ity o f 00:00: mouth in [place] 00 the Medical morning. Branch donepeziL 5 2022-0 Yes [id number] 5mg Take 1 Univers mg tablet 6-13 tablet by ity o f 00:00: mouth in [place] 00 the Medical morning. Branch memantine 5 2022-0 Yes [id number] 5mg Take 1 Univers mg tablet 6-13 tablet by ity o f 00:00: mouth in [place] 00 the Medical morning. Branch donepeziL 5 2022-0 Yes [id number] 5mg Take 1 Univers mg tablet 6-13 tablet by ity o f 00:00: mouth in [place] 00 the Medical morning. Branch memantine 5 2022-0 Yes [id number] 5mg Take 1 Univers mg tablet 6-13 tablet by ity o f 00:00: mouth in [place] 00 the Medical morning. Branch busPIRone 3-0 Yes 10mg Take 1 Univer s 10 mg 6-02 tablet by ity of tablet 16:15: mouth in [place] [address] the Medical morning Branch and 1 tablet in the evening. rivaroxaban 2023-0 Yes 15mg Take 1 Univ ers 15 mg 6-02 tablet by ity of tablet 16:15: mouth in [place] 12 the Medical morning. Branch ASPIRIN 2023-0 Yes 81mg Take 81 mg Univ ers ORAL 6-02 by mouth ity of 16:15: in the [place] [address] morning. Medical tablet Branch busPIRone 3-0 Yes 10mg Take 1 Univer s 10 mg 6-02 tablet by ity of tablet 16:15: mouth in [place] 12 the Medical morning Branch and 1 tablet in the evening. rivaroxaban 2023-0 Yes 15mg Take 1 Univ ers 15 mg 6-02 tablet by ity of tablet 16:15: mouth in [place] [address] the Medical morning. Branch ASPIRIN 2023-0 Yes 81mg Take 81 mg Univ ers ORAL 6-02 by mouth ity of 16:15: in the [place] [address] morning. Medical tablet Branch busPIRone 2023-0 Yes 10mg Take 1 Univer s 10 mg 6-02 tablet by ity of tablet 16:15: mouth in [place] [address] the Medical morning Branch and 1 tablet in the evening. rivaroxaban 2023-0 Yes 15mg Take 1 Univ ers 15 mg 6-02 tablet by ity of tablet 16:15: mouth in [place] [address] the Medical morning. Branch ASPIRIN 2023-0 Yes 81mg Take 81 mg Univ ers ORAL 6-02 by mouth ity of 16:15: in the [place] [address] morning. Medical tablet Branch busPIRone 2023-0 Yes 10mg Take 1 Univer s 10 mg 6-02 tablet by ity of tablet 16:15: mouth in [place] [address] the Medical morning Branch and 1 tablet in the evening. rivaroxaban 2023-0 Yes 15mg Take 1 Univ ers 15 mg 6-02 tablet by ity of tablet 16:15: mouth in [place] [address] the Medical morning. Branch ASPIRIN 2023-0 Yes 81mg Take 81 mg Univ ers ORAL 6-02 by mouth ity of 16:15: in the [place] [address] morning. Medical tablet Branch busPIRone 2023-0 Yes 10mg Take 1 Univer s 10 mg 6-02 tablet by ity of tablet 16:15: mouth in [place] [address] the Medical morning Branch and 1 tablet in the evening. rivaroxaban 2023-0 Yes 15mg Take 1 Univ ers 15 mg 6-02 tablet by ity of tablet 16:15: mouth in [place] [address] the Medical morning. Branch ASPIRIN 2023-0 Yes 81mg Take 81 mg Univ ers ORAL 6-02 by mouth ity of 16:15: in the [place] [address] morning. Medical tablet Branch busPIRone 2023-0 Yes 10mg Take 1 Univer s 10 mg 6-02 tablet by ity of tablet 16:15: mouth in [place] [address] the Medical morning Branch and 1 tablet in the evening. rivaroxaban 2023-0 Yes 15mg Take 1 Univ ers 15 mg 6-02 tablet by ity of tablet 16:15: mouth in [place] [address] the Medical morning. Branch ASPIRIN 2023-0 Yes 81mg Take 81 mg Univ ers ORAL 6-02 by mouth ity of 16:15: in the [place] [address] morning. Medical tablet Branch busPIRone 2023-0 Yes 10mg Take 1 Univer s 10 mg 6-02 tablet by ity of tablet 16:15: mouth in [place] [address] the Medical morning Branch and 1 tablet in the evening. rivaroxaban 2023-0 Yes 15mg Take 1 Univ ers 15 mg 6-02 tablet by ity of tablet 16:15: mouth in [place] [address] the Medical morning. Branch ASPIRIN 2023-0 Yes 81mg Take 81 mg Univ ers ORAL 6-02 by mouth ity of 16:15: in the [place] [address] morning. Medical tablet Branch busPIRone 2023-0 Yes 10mg Take 1 Univer s 10 mg 6-02 tablet by ity of tablet 16:15: mouth in [place] [address] the Medical morning Branch and 1 tablet in the evening. rivaroxaban 2023-0 Yes 15mg Take 1 Univ ers 15 mg 6-02 tablet by ity of tablet 16:15: mouth in [place] [address] the Medical morning. Branch ASPIRIN 2023-0 Yes 81mg Take 81 mg Univ ers ORAL 6-02 by mouth ity of 16:15: in the [place] [address] morning. Medical tablet Branch busPIRone 2023-0 Yes 10mg Take 1 Univer s 10 mg 6-02 tablet by ity of tablet 16:15: mouth in [place] [address] the Medical morning Branch and 1 tablet in the evening. rivaroxaban 2023-0 Yes 15mg Take 1 Univ ers 15 mg 6-02 tablet by ity of tablet 16:15: mouth in [place] [address] the Medical morning. Branch ASPIRIN 2023-0 Yes 81mg Take 81 mg Univ ers ORAL 6-02 by mouth ity of 16:15: in the [place] [address] morning. Medical tablet Branch busPIRone 2023-0 Yes 10mg Take 1 Univer s 10 mg 6-02 tablet by ity of tablet 16:15: mouth in [place] [address] the Medical morning Branch and 1 tablet in the evening. rivaroxaban 2023-0 Yes 15mg Take 1 Univ ers 15 mg 6-02 tablet by ity of tablet 16:15: mouth in [place] [address] the Medical morning. Branch ASPIRIN 2023-0 Yes 81mg Take 81 mg Univ ers ORAL 6-02 by mouth ity of 16:15: in the [place] [address] morning. Medical tablet Branch predniSONE 2023-0 2023- No [id number] 40mg Take 2 Univers 20 mg 6-02 06-06 tablets by ity of tablet 00:00: 04:59 mouth in [place] 00 :00 the Medical morning Branch for 3 days. predniSONE 2022-0 2022- No [id number] 40mg Take 2 Univers 20 mg 6-10 25-06 tablets by ity of tablet 00:00: 04:59 mouth in [place] 00 :00 the Medical morning Branch for 3 days. predniSONE 2022-0 2022- No [id number] 40mg Take 2 Univers 20 mg 6-10 25- tablets by ity of tablet 00:00: 04:59 mouth in [place] 00 :00 the Medical morning Branch for 3 days. midodrine 5 0 Yes [id number] 5mg Take 1 Univers mg tablet 6-01 tablet by ity o f 00:00: mouth [place] 00 every 8 Medical (eight) Branch hours as needed (Hypotensi on SBP <95 or DBP <50). midodrine 5 Yes [id number] 5mg Take 1 Univers mg tablet 6-01 tablet by ity o f 00:00: mouth [place] 00 every 8 Medical (eight) Branch hours as needed (Hypotensi on SBP <95 or DBP <50). midodrine 5 0 Yes [id number] 5mg Take 1 Univers mg tablet 6-01 tablet by ity o f 00:00: mouth [place] 00 every 8 Medical (eight) Branch hours as needed (Hypotensi on SBP <95 or DBP <50). midodrine 5 2022-0 Yes [id number] 5mg Take 1 Univers mg tablet 6-01 tablet by ity o f 00:00: mouth [place] 00 every 8 Medical (eight) Branch hours as needed (Hypotensi on SBP <95 or DBP <50). midodrine 5 0 Yes [id number] 5mg Take 1 Univers mg tablet 6-01 tablet by ity o f 00:00: mouth [place] 00 every 8 Medical (eight) Branch hours as needed (Hypotensi on SBP <95 or DBP <50). midodrine 5 2022-0 Yes [id number] 5mg Take 1 Univers mg tablet 6-01 tablet by ity o f 00:00: mouth [place] 00 every 8 Medical (eight) Branch hours as needed (Hypotensi on SBP <95 or DBP <50). midodrine 5 2022-0 Yes [id number] 5mg Take 1 Univers mg tablet 6-01 tablet by ity o f 00:00: mouth [place] 00 every 8 Medical (eight) Branch hours as needed (Hypotensi on SBP <95 or DBP <50). midodrine 5 2022-0 Yes [id number] 5mg Take 1 Univers mg tablet 6-01 tablet by ity o f 00:00: mouth [place] 00 every 8 Medical (eight) Branch hours as needed (Hypotensi on SBP <95 or DBP <50). midodrine 5 2022-0 Yes [id number] 5mg Take 1 Univers mg tablet 6-01 tablet by ity o f 00:00: mouth [place] 00 every 8 Medical (eight) Branch hours as needed (Hypotensi on SBP <95 or DBP <50). midodrine 5 2022-0 Yes [id number] 5mg Take 1 Univers mg tablet 6-01 [...] 02/16/23 at 0900, Until Discontinu ed, Routine
environmental studies faculty member approving Restricted medication : DEDRICK TOTH [...] Tue02/20/23 at 0900, Routine sulfur 2022- No [id number] 5mL 5 mL, Unive rs hexafluorid 02-16 Intravenou i ty of e microsphr 14:00: 14:00 s, ONCE, 1 (LUMASON) 00 :00 dose, On Medica l injection 5 Tue Branch mL 02/16/23 at 0900, Routine
environmental studies faculty member approving Restricted medication : STEFFANIE REYES [...] 60mg 60 mg, Uni vers isolone sod 5-31 05-31 Intravenou i ty of succ 05:43: 05:51 s, ONCE, 1 [place] (SOLU-MEDRO 00 :00 dose, On Medi lucho [...] mg-3 35 Starting Medical mg(2.[address] [facility] base)/3 mL 02/15/23 at nebulizer 1952, solution 3 Until mL Discontinu ed, Routine, Wheezing, Shortness of Breath HYDROcodone Yes 1{tbl} 1 tablet, Univers -acetaminop 02-16 Oral, ity of hen (NORCO) 00:52: Q6HPRN, [place] as 10-325 mg 26 Starting Medica l tablet [address] [facility] tablet 02/15/23 at 1951, Until Discontinu ed, Routine, Pain (scale 7-10) traMADoL 0 2022- No 50mg 50 mg, Univer s (ULTRAM) 02-1602 Oral, ity of tablet 50 00:52: 00:51 Q8HPRN, [place] mg 22 :[address] [facility] 02/15/23 at 1951, Until [place] 02/17/23 at 1950, Routine, Pain (scale 4-6) acetaminoph Yes 650mg 650 mg, Un igor en 02-16 Oral, ity of (TYLENOL) 00:52: Q6HPRN, [place] tablet 650 16 Starting Medic al mg on [facility] 02/15/23 at 1951, Until Discontinu ed, Routine, Pain (scale 1-3) NaCl 0.9% 0 2022- No 1000mL at [...] dose, On 02/15/23 at 1545, MICHAEL ipratropium 2022-0 2022- No 3mL 3 mL, Univ ers -albuteroL 02-05 Inhalation it y of (DUONEB) 22:15: 10:14 , ONCE, 1 [place] as 0.5 mg-3 00 :00 dose, On Medical mg(2.5 mg Sat Branch base)/3 mL 02/05/23 at nebulizer 1715, MICHAEL solution 3 mL ipratropium 0 2022- No 3mL 3 [...] Fri Branch 02/04/23 at 1615, Routine ipratropium 2022-0 2022- No .5mg 0.5 mg, Un igor (ATROVENT) 02-04 Inhalation it y of 0.02 % 21:15: 20:31 , ONCE, 1 [place] nebulizer 00 :00 dose, On Medica l solution Fri Branch 0.5 mg 02/04/23 at 1615, MICHAEL albuterol 2022-0 Yes [id number] 2{puff} Inhale 2 Univers 90 5-19 Puffs ity of mcg/actuati 00:00: every 4 [place] on inhaler 00 (four) Medical hours as Branch needed for Wheezing or Shortness of Breath. albuterol Yes [id number] 2{puff} Inhale 2 Univers 90 5-19 Puffs ity of mcg/actuati 00:00: every 4 [place] as on inhaler 00 (four) Medical hours as Branch needed for Wheezing or Shortness of Breath. albuterol Yes [id number] 2{puff} Inhale 2 Univers 90 5-19 Puffs ity of mcg/actuati 00:00: every 4 [place] as on inhaler 00 (four) Medical hours as Branch needed for Wheezing or Shortness of Breath. albuterol Yes [id number] 2{puff} Inhale 2 Univers 90 5-19 Puffs ity of mcg/actuati 00:00: every 4 [place] as on inhaler 00 (four) Medical hours as Branch needed for Wheezing or Shortness of Breath. albuterol Yes [id number] 2{puff} Inhale 2 Univers 90 5-19 Puffs ity of mcg/actuati 00:00: every 4 [place] as on inhaler 00 (four) Medical hours as Branch needed for Wheezing or Shortness of Breath. albuterol Yes [id number] 2{puff} Inhale 2 Univers 90 5-19 Puffs ity of mcg/actuati 00:00: every 4 [place] as on inhaler 00 (four) Medical hours as Branch needed for Wheezing or Shortness of Breath. albuterol Yes [id number] 2{puff} Inhale 2 Univers 90 5-19 Puffs ity of mcg/actuati 00:00: every 4 [place] as on inhaler 00 (four) Medical hours as Branch needed for Wheezing or Shortness of Breath. albuterol Yes [id number] 2{puff} Inhale 2 Univers 90 5-19 Puffs ity of mcg/actuati 00:00: every 4 [place] on inhaler 00 (four) Medical hours as Branch needed for Wheezing or Shortness of Breath. albuterol Yes [id number] 2{puff} Inhale 2 Univers 90 5-19 Puffs ity of mcg/actuati 00:00: every 4 [place] on inhaler 00 (four) Medical hours as Branch needed for Wheezing or Shortness of Breath. albuterol 2022-0 Yes [id number] 2{puff} Inhale 2 Univers 90 5-19 Puffs ity of mcg/actuati 00:00: every 4 [place] as on inhaler 00 (four) Medical hours as Branch needed for Wheezing or Shortness of Breath. albuterol 2022-0 2022- No [id number] 2{puff} Inhale 2 Univers 90 5-19 08-01 Puffs ity of mcg/actuati 00:00: 00:00 every 4 [place] on inhaler 00 :00 (four) Medical hours as Branch needed for Wheezing or Shortness of Breath. albuterol 2022-0 2022- No [id number] 2{puff} Inhale 2 Univers 90 5-19 08-01 [...] 125mg 125 mg, U nivers isolone sod 18 05-18 Intravenou i ty of succ 18:45: 18:16 s, ONCE, 1 [place] (SOLU-MEDRO 00 :00 dose, On Medi lucho [...] solution 3 Routine mL tiotropium 2022-0 Yes [id number] 18ug Inhale 1 Univers 18 mcg 5-15 capsule in ity of inhalation 00:00: the [place] 00 morning. Medical Branch fluticasone 2022-0 Yes [id number] 1{puff} Inhale 1 Univers propion-bella 5-15 Puff in ity o f meteroL 00:00: the [place] (ADVAIR 00 morning Medical DISKUS) and 1 Puff Branch 250-50 in the mcg/dose evening. inhalation disk montelukast 2022-0 Yes [id number] 10mg Take 1 Univers 10 mg 5-15 tablet by ity of tablet 00:00: mouth in [place] 00 the morning. Branch tiotropium 2022-0 Yes [id number] 18ug Inhale 1 Univers 18 mcg 5-15 capsule in ity of inhalation 00:00: the [place] 00 morning. Medical Branch fluticasone 2022-0 Yes [id number] 1{puff} Inhale 1 Univers propion-bella 5-15 Puff in ity o f meteroL 00:00: the [place] (ADVAIR 00 morning Medical DISKUS) and 1 Puff Branch 250-50 in the mcg/dose evening. inhalation disk montelukast 2022-0 Yes [id number] 10mg Take 1 Univers 10 mg 5-15 tablet by ity of tablet 00:00: mouth in [place] 00 the morning. Branch tiotropium 2022-0 Yes [id number] 18ug Inhale 1 Univers 18 mcg 5-15 capsule in ity of inhalation 00:00: the [place] 00 morning. Medical Branch fluticasone 2022-0 Yes [id number] 1{puff} Inhale 1 Univers propion-bella 5-15 Puff in ity o f meteroL 00:00: the [place] (ADVAIR 00 morning Medical DISKUS) and 1 Puff Branch 250-50 in the mcg/dose evening. inhalation disk montelukast 2022-0 Yes [id number] 10mg Take 1 Univers 10 mg 5-15 tablet by ity of tablet 00:00: mouth in [place] 00 the Medical morning. Branch tiotropium 2022-0 Yes [id number] 18ug Inhale 1 Univers 18 mcg 5-15 capsule in ity of inhalation 00:00: the [place] 00 morning. Medical Branch fluticasone 2022-0 Yes [id number] 1{puff} Inhale 1 [facility] propion-bella 5-15 Puff in ity o f meteroL 00:00: the [place] (ADVAIR 00 morning Medical DISKUS) and 1 Puff Branch 250-50 in the mcg/dose evening. inhalation disk montelukast 3-0 Yes [id number] 10mg Take 1 [facility] 10 mg 5-15 tablet by ity of tablet 00:00: mouth in [place] 00 the Medical morning. Branch tiotropium 2022-0 Yes [id number] 18ug Inhale 1 [facility] 18 mcg 5-15 capsule in ity of inhalation 00:00: the [place] 00 morning. Medical Branch fluticasone 2022-0 Yes [id number] 1{puff} Inhale 1 [facility] propion-bella 5-15 Puff in ity o f meteroL 00:00: the [place] (ADVAIR 00 morning Medical DISKUS) and 1 Puff Branch 250-50 in the mcg/dose evening. inhalation disk montelukast 3-0 Yes [id number] 10mg Take 1 [facility] 10 mg 5-15 tablet by ity of tablet 00:00: mouth in [place] 00 the Medical morning. Branch tiotropium 2022-0 Yes [id number] 18ug Inhale 1 [facility] 18 mcg 5-15 capsule in ity of inhalation 00:00: the [place] 00 morning. Medical Branch fluticasone 2022-0 Yes [id number] 1{puff} Inhale 1 [facility] propion-bella 5-15 Puff in ity o f meteroL 00:00: the [place] (ADVAIR 00 morning Medical DISKUS) and 1 Puff Branch 250-50 in the mcg/dose evening. inhalation disk montelukast 2022-0 Yes [id number] 10mg Take 1 [facility] 10 mg 5-15 tablet by ity of tablet 00:00: mouth in [place] 00 the Medical morning. Branch tiotropium 2022-0 Yes [id number] 18ug Inhale 1 [facility] 18 mcg 5-15 capsule in ity of inhalation 00:00: the [place] 00 morning. Medical Branch fluticasone 2022-0 Yes [id number] 1{puff} Inhale 1 [facility] propion-bella 5-15 Puff in ity o f meteroL 00:00: the [place] (ADVAIR 00 morning Medical DISKUS) and 1 Puff Branch 250-50 in the mcg/dose evening. inhalation disk montelukast 3-0 Yes [id number] 10mg Take 1 [facility] 10 mg 5-15 tablet by ity of tablet 00:00: mouth in [place] 00 the Medical morning. Branch tiotropium 2022-0 Yes [id number] 18ug Inhale 1 [facility] 18 mcg 5-15 capsule in ity of inhalation 00:00: the [place] 00 morning. Medical Branch fluticasone 3-0 Yes [id number] 1{puff} Inhale 1 [facility] propion-bella 5-15 Puff in ity o f meteroL 00:00: the [place] (ADVAIR 00 morning Medical DISKUS) and 1 Puff Branch 250-50 in the mcg/dose evening. inhalation disk montelukast 3-0 Yes [id number] 10mg Take 1 [facility] 10 mg 5-15 tablet by ity of tablet 00:00: mouth in [place] 00 the Medical morning. Branch tiotropium 2022-0 Yes [id number] 18ug Inhale 1 [facility] 18 mcg 5-15 capsule in ity of inhalation 00:00: the [place] 00 morning. Medical Branch fluticasone 2022-0 Yes [id number] 1{puff} Inhale 1 [facility] propion-bella 5-15 Puff in ity o f meteroL 00:00: the [place] (ADVAIR 00 morning Medical DISKUS) and 1 Puff Branch 250-50 in the mcg/dose evening. inhalation disk montelukast 2022-0 Yes [id number] 10mg Take 1 [facility] 10 mg 5-15 tablet by ity of tablet 00:00: mouth in [place] 00 the Medical morning. Branch tiotropium 2022-0 Yes [id number] 18ug Inhale 1 [facility] 18 mcg 5-15 capsule in ity of inhalation 00:00: the [place] 00 morning. Medical Branch montelukast 3-0 Yes [id number] 10mg Take 1 [facility] 10 mg 5-15 tablet by ity of tablet 00:00: mouth in [place] 00 the Medical morning. Branch montelukast 3-0 Yes [id number] 10mg Take 1 [facility] 10 mg 5-15 tablet by ity of tablet 00:00: mouth in [place] 00 the Medical morning. Branch montelukast 3-0 Yes [id number] 10mg Take 1 [facility] 10 mg 5-15 tablet by ity of tablet 00:00: mouth in [place] 00 the Medical morning. Branch albuterol 2022-0 Yes [id number] 2{puff} Inhale 2 [facility] 90 5-15 Puffs ity of mcg/actuati 00:00: every 4 [place] as on inhaler 00 (four) Medical hours as Branch needed for Wheezing, Shortness of Breath or Bronchospa sm. fluticasone 2022-0 Yes [id number] 1{puff} Inhale 1 [facility] propion-bella 5-15 Puff in ity o f meteroL 00:00: the [place] (ADVAIR 00 morning Medical DISKUS) and 1 Puff Branch 250-50 in the mcg/dose evening. inhalation disk montelukast 2022-0 Yes [id number] 10mg Take 1 [facility] 10 mg 5-15 tablet by ity of tablet 00:00: mouth in [place] 00 the Medical morning. Branch tiotropium 2022-0 Yes [id number] 18ug Inhale 1 [facility] 18 mcg 5-15 capsule in ity of inhalation 00:00: the [place] 00 morning. Medical Branch albuterol 2022-0 Yes [id number] 2{puff} Inhale 2 [facility] 90 5-15 Puffs ity of mcg/actuati 00:00: every 4 [place] on inhaler 00 (four) Medical hours as Branch needed for Wheezing, Shortness of Breath or Bronchospa sm. fluticasone 2022-0 Yes [id number] 1{puff} Inhale 1 [facility] propion-bella 5-15 Puff in ity o f meteroL 00:00: the [place] (ADVAIR 00 morning Medical DISKUS) and 1 Puff Branch 250-50 in the mcg/dose evening. inhalation disk montelukast 2022-0 Yes [id number] 10mg Take 1 [facility] 10 mg 5-15 tablet by ity of tablet 00:00: mouth in [place] 00 the Medical morning. Branch tiotropium 2022-0 Yes [id number] 18ug Inhale 1 [facility] 18 mcg 5-15 capsule in ity of inhalation 00:00: the [place] 00 morning. Medical Branch albuterol 2022-0 Yes [id number] 2{puff} Inhale 2 [facility] 90 5-15 Puffs ity of mcg/actuati 00:00: every 4 [place] on inhaler 00 (four) Medical hours as Branch needed for Wheezing, Shortness of Breath or Bronchospa sm. fluticasone 2022-0 Yes [id number] 1{puff} Inhale 1 [facility] propion-bella 5-15 Puff in ity o f meteroL 00:00: the [place] (ADVAIR 00 morning Medical DISKUS) and 1 Puff Branch 250-50 in the mcg/dose evening. inhalation disk montelukast 2022-0 Yes [id number] 10mg Take 1 [facility] 10 mg 5-15 tablet by ity of tablet 00:00: mouth in [place] 00 the Medical morning. Branch tiotropium 2022-0 Yes [id number] 18ug Inhale 1 [facility] 18 mcg 5-15 capsule in ity of inhalation 00:00: the [place] 00 morning. Medical Branch albuterol 2022-0 Yes [id number] 2{puff} Inhale 2 [facility] 90 5-15 Puffs ity of mcg/actuati 00:00: every 4 [place] on inhaler 00 (four) Medical hours as Branch needed for Wheezing, Shortness of Breath or Bronchospa sm. fluticasone 2022-0 Yes [id number] 1{puff} Inhale 1 [facility] propion-bella 5-15 Puff in ity o f meteroL 00:00: the [place] (ADVAIR 00 morning Medical DISKUS) and 1 Puff Branch 250-50 in the mcg/dose evening. inhalation disk montelukast 2022-0 Yes [id number] 10mg Take 1 [facility] 10 mg 5-15 tablet by ity of tablet 00:00: mouth in [place] 00 the Medical morning. Branch tiotropium 2022-0 Yes [id number] 18ug Inhale 1 [facility] 18 mcg 5-15 capsule in ity of inhalation 00:00: the [place] 00 morning. Medical Branch fluticasone 2022-0 Yes [id number] 1{puff} Inhale 1 [facility] propion-bella 5-15 Puff in ity o f meteroL 00:00: the [place] (ADVAIR 00 morning Medical DISKUS) and 1 Puff Branch 250-50 in the mcg/dose evening. inhalation disk montelukast 3-0 Yes [id number] 10mg Take 1 [facility] 10 mg 5-15 tablet by ity of tablet 00:00: mouth in [place] 00 the Medical morning. Branch fluticasone 2022-0 2022- No [id number] 1{puff} Inhale 1 [facility] propion-bella 5-15 08-01 Puff in ity of meteroL 00:00: 00:00 [facility] (ADVAIR 00 :00 morning Medical DISKUS) and 1 Puff Branch 250-50 in the mcg/dose evening. inhalation disk tiotropium 2022-0 2022- No [id number] 18ug Inhale 1 [facility] 18 mcg 5-15 08-01 capsule in ity of inhalation 00:00: 00:00 [facility] 00 :00 morning. Medical Branch fluticasone 2022-0 2022- No [id number] 1{puff} Inhale 1 [facility] propion-bella 5-15 08-01 Puff in ity of meteroL 00:00: 00:00 [facility] (ADVAIR 00 :00 morning Medical DISKUS) and 1 Puff Branch 250-50 in the mcg/dose evening. inhalation disk tiotropium 2022- No [id number] 18ug Inhale 1 [facility] 18 mcg 5-15 08-01 capsule in ity of inhalation 00:00: 00:00 [facility] 00 :00 morning. Medical Branch albuterol 2022- No [id number] 2{puff} Inhale 2 [facility] 90 5-15 05-19 Puffs ity of mcg/actuati 00:00: 00:00 every 4 [place] on inhaler 00 :00 (four) Medical hours as Branch needed for Wheezing, Shortness of Breath or Bronchospa sm. ipratropium 2022- No 3mL 3 mL, Univ [...] Sat Branch 01/29/23 at 0830, MICHAEL ipratropium 3-0 Yes 3mL 3 mL, Unive rs -albuteroL - Inhalation ity of (DUONEB) 13:00: , QID, [place] 0.5 mg-3 00 First dose Medic al mg(2.5 mg on [facility] base)/3 mL 01/27/23 at nebulizer 0800, solution 3 Until mL Discontinu ed, Routine ipratropium 2022-0 2022- No 3mL 3 mL, Univ ers -albuteroL 01-24-08 Inhalation it y of (DUONEB) 18:00: 18:15 , ONCE, 1 [place] as 0.5 mg-3 00 :00 dose, On Medical mg(2.5 mg [facility] 01/24/23 [facility] base)/3 mL at 1300, nebulizer MICHAEL solution 3 mL furosemide 2022-2022- No 40mg 40 mg, IV U nivers (LASIX) 01-24 Push, ity of injection 18:00: 18:42 ONCE, 1 [place] 40 mg 00 :00 dose, On Medical [facility] 01/24/23 Branch at 1300, MICHAEL aspirin 2022-0 2022- No 325mg 325 mg, Unive rs tablet 325 01-24- Oral, ity of mg 18:00: 18:44 ONCE, 1 [place] 00 :00 dose, On Medical [facility] 01/24/23 Branch at 1300, STAT busPIRone 2023-0 Yes 10mg Take 1 Univer s 10 mg 5-08 tablet by ity of tablet 15:48: mouth in [place] [address] the Medical morning Branch and 1 tablet in the evening. rivaroxaban 3-0 Yes 15mg Take 1 Univ ers 15 mg 5-08 tablet by ity of tablet 15:48: mouth in [place] [address] the [facility] morning. Branch ASPIRIN 3-0 Yes 81mg Take 81 mg Univ ers ORAL 5-08 by mouth ity of 15:48: in the [place] [address] morning. Medical tablet Branch busPIRone 2023-0 Yes 10mg Take 1 Univer s 10 mg 5-08 tablet by ity of tablet 15:48: mouth in [place] [address] the [facility] morning Branch and 1 tablet in the evening. rivaroxaban 2023-0 Yes 15mg Take 1 Univ ers 15 mg 5-08 tablet by ity of tablet 15:48: mouth in [place] [address] the Medical morning. Branch ASPIRIN 2023-0 Yes 81mg Take 81 mg Univ ers ORAL 5-08 by mouth ity of 15:48: in the [place] [address] morning. Medical tablet Branch busPIRone 2023-0 Yes 10mg Take 1 Univer s 10 mg 5-08 tablet by ity of tablet 15:48: mouth in [place] [address] the Medical morning Branch and 1 tablet in the evening. rivaroxaban 2023-0 Yes 15mg Take 1 Univ ers 15 mg 5-08 tablet by ity of tablet 15:48: mouth in [place] [address] the Medical morning. Branch ASPIRIN 2023-0 Yes 81mg Take 81 mg Univ ers ORAL 5-08 by mouth ity of 15:48: in the [place] [address] morning. Medical tablet Branch busPIRone 2023-0 Yes 10mg Take 1 Univer s 10 mg 5-08 tablet by ity of tablet 15:48: mouth in [place] [address] the Medical morning Branch and 1 tablet in the evening. rivaroxaban 2023-0 Yes 15mg Take 1 Univ ers 15 mg 5-08 tablet by ity of tablet 15:48: mouth in [place] [address] the Medical morning. Branch ASPIRIN 2023-0 Yes 81mg Take 81 mg Univ ers ORAL 5-08 by mouth ity of 15:48: in the [place] [address] morning. Medical tablet Branch busPIRone 2023-0 Yes 10mg Take 1 Univer s 10 mg 5-08 tablet by ity of tablet 15:48: mouth in [place] [address] the Medical morning Branch and 1 tablet in the evening. rivaroxaban 2023-0 Yes 15mg Take 1 Univ ers 15 mg 5-08 tablet by ity of tablet 15:48: mouth in [place] [address] the Medical morning. Branch ASPIRIN 2023-0 Yes 81mg Take 81 mg Univ ers ORAL 5-08 by mouth ity of 15:48: in the [place] [address] morning. Medical tablet Branch busPIRone 2023-0 Yes 10mg Take 1 Univer s 10 mg 5-08 tablet by ity of tablet 15:48: mouth in [place] [address] the Medical morning Branch and 1 tablet in the evening. rivaroxaban 2023-0 Yes 15mg Take 1 Univ ers 15 mg 5-08 tablet by ity of tablet 15:48: mouth in [place] [address] the Medical morning. Branch ASPIRIN 2023-0 Yes 81mg Take 81 mg Univ ers ORAL 5-08 by mouth ity of 15:48: in the [place] [address] morning. Medical tablet Branch busPIRone 2023-0 Yes 10mg Take 1 Univer s 10 mg 5-08 tablet by ity of tablet 15:48: mouth in [place] [address] the Medical morning Branch and 1 tablet in the evening. rivaroxaban 2023-0 Yes 15mg Take 1 Univ ers 15 mg 5-08 tablet by ity of tablet 15:48: mouth in [place] [address] the Medical morning. Branch ASPIRIN 2023-0 Yes 81mg Take 81 mg Univ ers ORAL 5-08 by mouth ity of 15:48: in the [place] [address] morning. Medical tablet Branch busPIRone 2023-0 Yes 10mg Take 1 Univer s 10 mg 5-08 tablet by ity of tablet 15:48: mouth in [place] [address] the Medical morning Branch and 1 tablet in the evening. rivaroxaban 2023-0 Yes 15mg Take 1 Univ ers 15 mg 5-08 tablet by ity of tablet 15:48: mouth in [place] [address] the Medical morning. Branch ASPIRIN 2023-0 Yes 81mg Take 81 mg Univ ers ORAL 5-08 by mouth ity of 15:48: in the [place] [address] morning. Medical tablet Branch busPIRone 2023-0 Yes 10mg Take 1 Univer s 10 mg 5-08 tablet by ity of tablet 15:48: mouth in [place] [address] the Medical morning Branch and 1 tablet in the evening. rivaroxaban 2023-0 Yes 15mg Take 1 Univ ers 15 mg 5-08 tablet by ity of tablet 15:48: mouth in [place] [address] the Medical morning. Branch ASPIRIN 2023-0 Yes 81mg Take 81 mg Univ ers ORAL 5-08 by mouth ity of 15:48: in the [place] [address] morning. Medical tablet Branch busPIRone 2023-0 Yes 10mg Take 1 Univer s 10 mg 5-08 tablet by ity of tablet 15:48: mouth in [place] [address] the Medical morning Branch and 1 tablet in the evening. rivaroxaban 2023-0 Yes 15mg Take 1 Univ ers 15 mg 5-08 tablet by ity of tablet 15:48: mouth in [place] [address] the Medical morning. Branch ASPIRIN 2023-0 Yes 81mg Take 81 mg Univ ers ORAL 5-08 by mouth ity of 15:48: in the [place] [address] morning. Medical tablet Branch busPIRone 3-0 Yes 10mg Take 1 Univer s 10 mg 5-08 tablet by ity of tablet 15:48: mouth in [place] [address] the Medical morning Branch and 1 tablet in the evening. rivaroxaban 2023-0 Yes 15mg Take 1 Univ ers 15 mg 5-08 tablet by ity of tablet 15:48: mouth in [place] [address] the Medical morning. Branch ASPIRIN 3-0 Yes 81mg Take 81 mg Univ ers ORAL 5-08 by mouth ity of 15:48: in the [place] [address] morning. Medical tablet Branch busPIRone 3-0 Yes 10mg Take 1 Univer s 10 mg 5-08 tablet by ity of tablet 15:48: mouth in [place] [address] the Medical morning Branch and 1 tablet in the evening. rivaroxaban 3-0 Yes 15mg Take 1 Univ ers 15 mg 5-08 tablet by ity of tablet 15:48: mouth in [place] [address] the Medical morning. Branch ASPIRIN 3-0 Yes 81mg Take 81 mg Univ ers ORAL 5-08 by mouth ity of 15:48: in the [place] [address] morning. Medical tablet Branch busPIRone 3-0 Yes 10mg Take 1 Univer s 10 mg 5-08 tablet by ity of tablet 15:48: mouth in [place] [address] the Medical morning Branch and 1 tablet in the evening. rivaroxaban 3-0 Yes 15mg Take 1 Univ ers 15 mg 5-08 tablet by ity of tablet 15:48: mouth in [place] [address] the Medical morning. Branch ASPIRIN 3-0 Yes 81mg Take 81 mg Univ ers ORAL 5-08 by mouth ity of 15:48: in the [place] [address] morning. Medical tablet Branch levalbutero 2022-0 3- No 1.25mg 1.25 mg, Univers l (XOPENEX) 01-23- Inhalation i ty of nebulizer 00:15: 23:35 , ONCE, 1 [place] solution 00 :00 dose, On Medical 1.25 mg 01/22/23 Branch at 191, Routine ipratropium 2022-0 2022- No .5mg 0.5 [...] it y of succ 23:00: s, Q6H, [place] (SOLU-MEDRO 00 First dose Me dical L) [...] 15mg 15 mg, IV Un igor (CARDIZEM 01-21- Push, ity of IV) 19:45: 20:06 ONCE, 1 [place] injection 00 :00 dose, On Medica l 15 mg 01/21/23 Branch at 1445, STAT
Fa culty member approving Restricted medication : LOUIS HONG NaCl 0.9% 2022- No 1000mL at 999 Uni vers (NS) bolus 01-21-05 mL/hr, ity of infusion 19:45: 22:17 1,000 mL, [place] as 1,000 mL 00 :00 IV Medical Infusion, Branch ONCE, 1 dose, On Tue01/21/23 at 1445, STAT predniSONE 2022-2022- No [id number] 40mg Take 2 Univers 20 mg 01-20-09 tablets by ity of tablet 00:00: 04:59 mouth in [place] 00 :00 the Medical morning Branch for 4 days. predniSONE 2022-0 2022- No [id number] 40mg Take 2 Univers 20 mg 5-04 05-09 tablets by ity of tablet 00:00: 04:59 mouth in [place] 00 :00 the Medical morning [place] for 4 days. predniSONE 2022-0 2022- No [id number] 40mg Take 2 Univers 20 mg 5-04 05-09 tablets by ity of tablet 00:00: 04:59 mouth in [place] 00 :00 the [facility] morning [place] for 4 days. predniSONE 2022-0 2022- No [id number] 40mg Take 2 Univers 20 mg 5-04 05-09 tablets by ity of tablet 00:00: 04:59 mouth in [place] 00 :00 the [facility] morning [place] for 4 days. predniSONE 2022-0 2022- No [id number] 40mg Take 2 Univers 20 mg 5-04 05-09 tablets by ity of tablet 00:00: 04:59 mouth in [place] 00 :00 the [facility] morning [place] for 4 days. predniSONE 2022-0 2022- No [id number] 40mg Take 2 Univers 20 mg 5-04 05-09 tablets by ity of tablet 00:00: 04:59 mouth in [place] 00 :00 the [facility] morning [place] for 4 days. predniSONE 2022-0 2022- No [id number] 40mg Take 2 Univers 20 mg 5-04 05-09 tablets by ity of tablet 00:00: 04:59 mouth in [place] 00 :00 the [facility] for 4 days. enoxaparin 0 Yes 40mg 40 mg, Unive rs (LOVENOX) 01-19 Subcutaneo ity of injection 22:00: [place], DAILY, [place] 40 mg 00 First dose Medical on Tue01/19/23 at 1700, Until Discontinu ed, Routine levalbutero 0 Yes 1.25mg 1.25 mg, Univers l (XOPENEX) 01-19 Inhalation it y of nebulizer 21:00: , QID, [place] solution 00 First dose Medic al 1.25 mg (after Branch last modificati on) on Tue01/19/23 at 1600, Until Discontinu ed, Routine ipratropium 0 Yes .5mg 0.5 mg, Uni vers (ATROVENT) 01-19 Inhalation ity of 0.02 % 21:00: , QID, [place] nebulizer 00 First dose Medi lucho solution (after Branch 0.5 mg last modificati on) on Tue01/19/23 at 1600, Until Discontinu ed, Routine busPIRone 2023-0 Yes 10mg Take 1 Univer s 10 mg 5-03 tablet by ity of tablet 19:49: mouth in [place] [address] the Medical morning Branch and 1 tablet in the evening. rivaroxaban 2023-0 Yes 15mg Take 1 Univ ers 15 mg 5-03 tablet by ity of tablet 19:49: mouth in [place] [address] the Medical morning. Branch ASPIRIN 2023-0 Yes 81mg Take 81 mg Univ ers ORAL 5-03 by mouth ity of 19:49: in the [place] [address] morning. Medical tablet Branch busPIRone 2023-0 Yes 10mg Take 1 Univer s 10 mg 5-03 tablet by ity of tablet 19:49: mouth in [place] [address] the Medical morning Branch and 1 tablet in the evening. rivaroxaban 2023-0 Yes 15mg Take 1 Univ ers 15 mg 5-03 tablet by ity of tablet 19:49: mouth in [place] [address] the Medical morning. Branch ASPIRIN 2023-0 Yes 81mg Take 81 mg Univ ers ORAL 5-03 by mouth ity of 19:49: in the [place] [address] morning. Medical tablet Branch busPIRone 2023-0 Yes 10mg Take 1 Univer s 10 mg 5-03 tablet by ity of tablet 19:49: mouth in [place] [address] the Medical morning Branch and 1 tablet in the evening. rivaroxaban 2023-0 Yes 15mg Take 1 Univ ers 15 mg 5-03 tablet by ity of tablet 19:49: mouth in [place] [address] the Medical morning. Branch ASPIRIN 2023-0 Yes 81mg Take 81 mg Univ ers ORAL 5-03 by mouth ity of 19:49: in the [place] [address] morning. Medical tablet Branch busPIRone 2023-0 Yes 10mg Take 1 Univer s 10 mg 5-03 tablet by ity of tablet 19:49: mouth in [place] [address] the Medical morning Branch and 1 tablet in the evening. rivaroxaban 2023-0 Yes 15mg Take 1 Univ ers 15 mg 5-03 tablet by ity of tablet 19:49: mouth in [place] [address] the Medical morning. Branch ASPIRIN 2023-0 Yes 81mg Take 81 mg Univ ers ORAL 5-03 by mouth ity of 19:49: in the [place] 16 morning. Medical tablet Branch busPIRone 2022-0 Yes 10mg Take 1 Univer s 10 mg 5-03 tablet by ity of tablet 19:49: mouth in [place] [address] the Medical morning Branch and 1 tablet in the evening. rivaroxaban 2022-0 Yes 15mg Take 1 Univ ers 15 mg 5-03 tablet by ity of tablet 19:49: mouth in [place] [address] the Medical morning. Branch ASPIRIN 2022-0 Yes 81mg Take 81 mg Univ ers ORAL 5-03 by mouth ity of 19:49: in the [place] [address] morning. Medical tablet Branch busPIRone 2022-0 Yes 10mg Take 1 Univer s 10 mg 5-03 tablet by ity of tablet 19:49: mouth in [place] [address] the Medical morning Branch and 1 tablet in the evening. rivaroxaban 2022-0 Yes 15mg Take 1 Univ ers 15 mg 5-03 tablet by ity of tablet 19:49: mouth in [place] [address] the Medical morning. Branch ASPIRIN 2022-0 Yes 81mg Take 81 mg Univ ers ORAL 5-03 by mouth ity of 19:49: in the [place] [address] morning. Medical tablet Branch benazepriL 2022-0 2022- No 10mg Take 1 Univ ers 10 mg 5-03 05-03 tablet by ity of tablet 17:28: 00:00 mouth in [place] 05 :00 the Medical morning. Branch potassium 2022-0 2022- No 1{tbl} Take 1 Uni vers chloride 5-03 05-03 tablet by ity o f (KCL-20 17:28: 00:00 mouth in [place] ORAL) 05 :00 the Medical morning Branch and 1 tablet in the evening. aspirin 2022-0 Yes 81mg 81 mg, Univers chewable 5-03 [...] of 0.02 % 13:00: 19:13 , TID, [place] nebulizer 00 :37 First dose Medi lucho [...] of 0.02 % 09:00: 12:09 , Q4H, [place] nebulizer 00 :19 First dose Medi lucho solution on Tue Branch 0.5 mg 01/19/23 at 0400, Until Discontinu ed, Routine levoFLOXaci No 500mg 500 mg, U nivers n [...] IV Push, ity of (PF)) 08:03: Q6HPRN, [place] injection 4 53 Starting Medi lucho mg [...] 2022- No 1{tbl} 1 tablet, Univers -acetaminop 01-1905 Oral, ity of hen (NORCO 08:03: 08:02 Q6HPRN, [place] as 5) 5-325 mg 39 :39 Starting Medi lucho tablet 1 on Tue Branch tablet 01/19/23 at 0303, Until Tue01/21/23 at 0302, Routine, Pain (scale 4-6) acetaminoph Yes 650mg 650 mg, Un igor en 01-19 Oral, ity of (TYLENOL) 08:03: Q6HPRN, [place] tablet 650 35 Starting Medic al mg on Tue Branch 01/19/23 at 0303, Until Discontinu ed, Routine, Pain (scale 1-3) levalbutero 2022- No 1.25mg 1.25 mg, Univers l (XOPENEX) 01-19 0503 Inhalation i ty of nebulizer 07:30: 07:08 , ONCE, 1 [place] solution 00 :00 dose, On Medical 1.25 mg Tue01/19/23 Branch at 0230, Routine dexamethaso 3-0 2022- No 10mg 10 mg, Uni vers ne sod phos 01-19-03 Oral, ity of PF 06:58: 07:06 ONCE, 1 [place] injection 00 :00 dose, On Medica l 10 mg Tue01/19/23 Branch at 0200, 1 mL ipratropium 2022-0 2022- No .5mg 0.5 mg, Un igor (ATROVENT) 01-19-03 Inhalation it y of 0.02 % 06:45: 07:09 , ONCE, 1 [place] nebulizer 00 :00 dose, On Medica l solution Tue01/19/23 Branc h 0.5 mg at 0145, MICHAEL ipratropium 2023-0 Yes [id number] .5mg Inhale 2.5 Univers 0.02 % 5-03 mL every 6 ity of nebulizer 00:00: (six) [place] solution 00 hours as Medical needed for Branch Wheezing, Shortness of Breath, Bronchospa sm or Chest tightness. guaiFENesin 2023-0 Yes [id number] 200mg Take 10 mL Univers 100 mg/5 mL 5-03 by mouth ity of solution 00:00: every 6 [place] 00 (six) Medical hours as Branch needed for Cough. ipratropium 2023-0 Yes [id number] .5mg Inhale 2.5 Univers 0.02 % 5-03 mL every 6 ity of nebulizer 00:00: (six) [place] solution 00 hours as Medical needed for Branch Wheezing, Shortness of Breath, Bronchospa sm or Chest tightness. guaiFENesin 2023-0 Yes [id number] 200mg Take 10 mL Univers 100 mg/5 mL 5-03 by mouth ity of solution 00:00: every 6 [place] 00 (six) Medical hours as Branch needed for Cough. ipratropium 2023-0 Yes [id number] .5mg Inhale 2.5 Univers 0.02 % 5-03 mL every 6 ity of nebulizer 00:00: (six) [place] solution 00 hours as Medical needed for Branch Wheezing, Shortness of Breath, Bronchospa sm or Chest tightness. guaiFENesin 2023-0 Yes [id number] 200mg Take 10 mL Univers 100 mg/5 mL 5-03 by mouth ity of solution 00:00: every 6 [place] 00 (six) Medical hours as Branch needed for Cough. ipratropium 2023-0 Yes [id number] .5mg Inhale 2.5 Univers 0.02 % 5-03 mL every 6 ity of nebulizer 00:00: (six) [place] solution 00 hours as Medical needed for Branch Wheezing, Shortness of Breath, Bronchospa sm or Chest tightness. guaiFENesin 2023-0 Yes [id number] 200mg Take 10 mL Univers 100 mg/5 mL 5-03 by mouth ity of solution 00:00: every 6 [place] 00 (six) Medical hours as Branch needed for Cough. ipratropium 2023-0 Yes [id number] .5mg Inhale 2.5 Univers 0.02 % 5-03 mL every 6 ity of nebulizer 00:00: (six) [place] solution 00 hours as Medical needed for Branch Wheezing, Shortness of Breath, Bronchospa sm or Chest tightness. guaiFENesin 2023-0 Yes [id number] 200mg Take 10 mL Univers 100 mg/5 mL 5-03 by mouth ity of solution 00:00: every 6 [place] 00 (six) Medical hours as Branch needed for Cough. ipratropium 2023-0 Yes [id number] .5mg Inhale 2.5 Univers 0.02 % 5-03 mL every 6 ity of nebulizer 00:00: (six) [place] solution 00 hours as Medical needed for Branch Wheezing, Shortness of Breath, Bronchospa sm or Chest tightness. guaiFENesin 2023-0 Yes [id number] 200mg Take 10 mL [facility] 100 mg/5 mL 5-03 by mouth ity of solution 00:00: every 6 [place] 00 (six) Medical hours as Branch needed for Cough. ipratropium 2023-0 Yes [id number] .5mg Inhale 2.5 [facility] 0.02 % 5-03 mL every 6 ity of nebulizer 00:00: (six) [place] solution 00 hours as Medical needed for Branch Wheezing, Shortness of Breath, Bronchospa sm or Chest tightness. guaiFENesin 2023-0 Yes [id number] 200mg Take 10 mL [facility] 100 mg/5 mL 5-03 by mouth ity of solution 00:00: every 6 [place] 00 (six) Medical hours as Branch needed for Cough. ipratropium 2023-0 Yes [id number] .5mg Inhale 2.5 [facility] 0.02 % 5-03 mL every 6 ity of nebulizer 00:00: (six) [place] solution 00 hours as Medical needed for Branch Wheezing, Shortness of Breath, Bronchospa sm or Chest tightness. guaiFENesin 2023-0 Yes [id number] 200mg Take 10 mL [facility] 100 mg/5 mL 5-03 by mouth ity of solution 00:00: every 6 [place] 00 (six) Medical hours as Branch needed for Cough. ipratropium 2023-0 Yes [id number] .5mg Inhale 2.5 [facility] 0.02 % 5-03 mL every 6 ity of nebulizer 00:00: (six) [place] solution 00 hours as Medical needed for Branch Wheezing, Shortness of Breath, Bronchospa sm or Chest tightness. guaiFENesin 2023-0 Yes [id number] 200mg Take 10 mL [facility] 100 mg/5 mL 5-03 by mouth ity of solution 00:00: every 6 [place] 00 (six) Medical hours as Branch needed for Cough. ipratropium 2023-0 Yes [id number] .5mg Inhale 2.5 [facility] 0.02 % 5-03 mL every 6 ity of nebulizer 00:00: (six) [place] solution 00 hours as Medical needed for Branch Wheezing, Shortness of Breath, Bronchospa sm or Chest tightness. guaiFENesin 2023-0 Yes [id number] 200mg Take 10 mL [facility] 100 mg/5 mL 5-03 by mouth ity of solution 00:00: every 6 [place] 00 (six) Medical hours as Branch needed for Cough. ipratropium 2023-0 Yes [id number] .5mg Inhale 2.5 [facility] 0.02 % 5-03 mL every 6 ity of nebulizer 00:00: (six) [place] solution 00 hours as Medical needed for Branch Wheezing, Shortness of Breath, Bronchospa sm or Chest tightness. guaiFENesin 2023-0 Yes [id number] 200mg Take 10 mL [facility] 100 mg/5 mL 5-03 by mouth ity of solution 00:00: every 6 [place] 00 (six) Medical hours as Branch needed for Cough. ipratropium 2023-0 Yes [id number] .5mg Inhale 2.5 [facility] 0.02 % 5-03 mL every 6 ity of nebulizer 00:00: (six) [place] solution 00 hours as Medical needed for Branch Wheezing, Shortness of Breath, Bronchospa sm or Chest tightness. guaiFENesin 2023-0 Yes [id number] 200mg Take 10 mL [facility] 100 mg/5 mL 5-03 by mouth ity of solution 00:00: every 6 [place] 00 (six) Medical hours as Branch needed for Cough. ipratropium 2023-0 Yes [id number] .5mg Inhale 2.5 [facility] 0.02 % 5-03 mL every 6 ity of nebulizer 00:00: (six) [place] solution 00 hours as Medical needed for Branch Wheezing, Shortness of Breath, Bronchospa sm or Chest tightness. guaiFENesin 2023-0 Yes [id number] 200mg Take 10 mL [facility] 100 mg/5 mL 5-03 by mouth ity of solution 00:00: every 6 [place] 00 (six) Medical hours as Branch needed for Cough. ipratropium 2023-0 Yes [id number] .5mg Inhale 2.5 [facility] 0.02 % 5-03 mL every 6 ity of nebulizer 00:00: (six) [place] solution 00 hours as Medical needed for Branch Wheezing, Shortness of Breath, Bronchospa sm or Chest tightness. guaiFENesin 2023-0 Yes [id number] 200mg Take 10 mL [facility] 100 mg/5 mL 5-03 by mouth ity of solution 00:00: every 6 [place] 00 (six) Medical hours as Branch needed for Cough. ipratropium 2023-0 Yes [id number] .5mg Inhale 2.5 [facility] 0.02 % 5-03 mL every 6 ity of nebulizer 00:00: (six) [place] solution 00 hours as Medical needed for Branch Wheezing, Shortness of Breath, Bronchospa sm or Chest tightness. guaiFENesin 2023-0 Yes [id number] 200mg Take 10 mL [facility] 100 mg/5 mL 5-03 by mouth ity of solution 00:00: every 6 [place] 00 (six) Medical hours as Branch needed for Cough. ipratropium 2023-0 Yes [id number] .5mg Inhale 2.5 [facility] 0.02 % 5-03 mL every 6 ity of nebulizer 00:00: (six) [place] solution 00 hours as Medical needed for Branch Wheezing, Shortness of Breath, Bronchospa sm or Chest tightness. guaiFENesin 2023-0 Yes [id number] 200mg Take 10 mL [facility] 100 mg/5 mL 5-03 by mouth ity of solution 00:00: every 6 [place] 00 (six) Medical hours as Branch needed for Cough. ipratropium 2023-0 Yes [id number] .5mg Inhale 2.5 [facility] 0.02 % 5-03 mL every 6 ity of nebulizer 00:00: (six) [place] solution 00 hours as Medical needed for Branch Wheezing, Shortness of Breath, Bronchospa sm or Chest tightness. guaiFENesin 2023-0 Yes [id number] 200mg Take 10 mL [facility] 100 mg/5 mL 5-03 by mouth ity of solution 00:00: every 6 [place] 00 (six) Medical hours as Branch needed for Cough. ipratropium 2023-0 Yes [id number] .5mg Inhale 2.5 [facility] 0.02 % 5-03 mL every 6 ity of nebulizer 00:00: (six) [place] solution 00 hours as Medical needed for Branch Wheezing, Shortness of Breath, Bronchospa sm or Chest tightness. guaiFENesin 2023-0 Yes [id number] 200mg Take 10 mL [facility] 100 mg/5 mL 5-03 by mouth ity of solution 00:00: every 6 [place] 00 (six) Medical hours as Branch needed for Cough. ipratropium 2023-0 Yes [id number] .5mg Inhale 2.5 [facility] 0.02 % 5-03 mL every 6 ity of nebulizer 00:00: (six) [place] solution 00 hours as Medical needed for Branch Wheezing, Shortness of Breath, Bronchospa sm or Chest tightness. guaiFENesin 2023-0 Yes [id number] 200mg Take 10 mL [facility] 100 mg/5 mL 5-03 by mouth ity of solution 00:00: every 6 [place] 00 (six) Medical hours as Branch needed for Cough. guaiFENesin 2023-0 Yes [id number] 200mg Take 10 mL [facility] 100 mg/5 mL 5-03 by mouth ity of solution 00:00: every 6 [place] 00 (six) Medical hours as Branch needed for Cough. guaiFENesin 2023-0 Yes [id number] 200mg Take 10 mL [facility] 100 mg/5 mL 5-03 by mouth ity of solution 00:00: every 6 [place] 00 (six) Medical hours as Branch needed for Cough. guaiFENesin 2023-0 Yes [id number] 200mg Take 10 mL [facility] 100 mg/5 mL 5-03 by mouth ity of solution 00:00: every 6 [place] 00 (six) Medical hours as Branch needed for Cough. guaiFENesin 2023-0 Yes [id number] 200mg Take 10 mL [facility] 100 mg/5 mL 5-03 by mouth ity of solution 00:00: every 6 [place] 00 (six) Medical hours as Branch needed for Cough. guaiFENesin 2023-0 Yes [id number] 200mg Take 10 mL [facility] 100 mg/5 mL 5-03 by mouth ity of solution 00:00: every 6 [place] 00 (six) Medical hours as Branch needed for Cough. guaiFENesin 2023-0 Yes [id number] 200mg Take 10 mL [facility] 100 mg/5 mL 5-03 by mouth ity of solution 00:00: every 6 [place] 00 (six) Medical hours as Branch needed for Cough. guaiFENesin 2023-0 Yes [id number] 200mg Take 10 mL [facility] 100 mg/5 mL 5-03 by mouth ity of solution 00:00: every 6 [place] 00 (six) Medical hours as Branch needed for Cough. guaiFENesin 2023-0 Yes [id number] 200mg Take 10 mL [facility] 100 mg/5 mL 5-03 by mouth ity of solution 00:00: every 6 [place] 00 (six) Medical hours as Branch needed for Cough. guaiFENesin 2023-0 Yes [id number] 200mg Take 10 mL [facility] 100 mg/5 mL 5-03 by mouth ity of solution 00:00: every 6 [place] 00 (six) Medical hours as Branch needed for Cough. guaiFENesin 2023-0 Yes [id number] 200mg Take 10 mL [facility] 100 mg/5 mL 5-03 by mouth ity of solution 00:00: every 6 [place] 00 (six) Medical hours as Branch needed for Cough. ipratropium 3-0 2023- No [id number] .5mg Inhale 2.5 [facility] 0.02 % 01-19 mL every 6 ity of nebulizer 00:00: 00:00 (six) [place] solution 00 :00 hours as Medical needed for Branch Wheezing, Shortness of Breath, Bronchospa sm or Chest tightness. levoFLOXaci 2022-2022- No [id number] 500mg Take 1 [facility] n 500 mg 5-11 21-08 tablet by ity o f tablet 00:00: 04:59 mouth in [place] 00 :00 [facility] for 4 days. levoFLOXaci 2022-0 2022- No [id number] 500mg Take 1 [facility] n 500 mg 5- 05-08 tablet by ity o f tablet 00:00: 04:59 mouth in [place] 00 :00 [facility] for 4 days. levoFLOXaci 2022-0 2022- No [id number] 500mg Take 1 [facility] n 500 mg 01-19-08 tablet by ity o f tablet 00:00: 04:59 mouth in [place] 00 :00 [facility] for 4 days. levoFLOXaci 2022-0 2022- No [id number] 500mg Take 1 [facility] n 500 mg - 05-08 tablet by ity o f tablet 00:00: 04:59 mouth in [place] 00 :00 [facility] for 4 days. levoFLOXaci 2022-2022- No [id number] 500mg Take 1 [facility] n 500 mg - 05-08 tablet by ity o f tablet 00:00: 04:59 mouth in [place] 00 :00 [facility] for 4 days. levoFLOXaci 2022-2022- No [id number] 500mg Take 1 [facility] n 500 mg 5- 05-08 tablet by ity o f tablet 00:00: 04:59 mouth in [place] 00 :00 [facility] for 4 days. levalbutero 2022-2022- No 1.25mg 1.25 mg, Univers l (XOPENEX) 01-17 Inhalation i ty of nebulizer 13:00: 11:56 , TID, [place] solution 00 :39 First dose Medic al 1.25 mg on Tue Branch 01/17/23 at 0800, Until Discontinu ed, Routine methylpredn 2022-2022- No 125mg 125 mg, U nivers isolone sod 01-17 Intravenou i ty of succ 12:00: 11:11 s, ONCE, 1 [place] (SOLU-MEDRO 00 :00 dose, On Medi lucho L) Tue01/17/23 Branch injection at 0700, 2 125 mg mL ipratropium 2022-0 2022- No .5mg 0.5 mg, Un igor (ATROVENT) 01-17 Inhalation it y of 0.02 % 11:45: 11:42 , ONCE, 1 [place] nebulizer 00 :00 dose, On Medica l solution Tue01/17/23 Branc h 0.5 mg at 0645, MICHAEL albuterol 2022-0 Yes [id number] 2{puff} Inhale 2 [facility] 90 5-01 Puffs ity of mcg/actuati 00:00: every 4 [place] as on inhaler 00 (four) Medical hours as Branch needed for Wheezing or Shortness of Breath. albuterol 2022-0 Yes [id number] 2.5mg Inhale 3 [facility] 2.5 mg /3 5-01 mL every 4 ity of mL (0.083 00:00: (four) [place] %) 00 hours. May Medical nebulizer also Branch solution nebulize one extra every 6 hours. predniSONE 2022-0 Yes [id number] 50mg Take 1 [facility] 50 mg 5-01 tablet by ity of tablet 00:00: mouth in [place] 00 the Medical morning. Branch benzonatate 2022-0 Yes [id number] 200mg Take 1 [facility] 200 mg 5-01 capsule by ity of capsule 00:00: mouth 3 [place] 00 (three) Medical times Branch daily as needed for Cough. ipratropium 2022-0 Yes [id number] .5mg Inhale 2.5 [facility] 0.02 % 5-01 mL every 6 ity of nebulizer 00:00: (six) [place] solution 00 hours as Medical needed for Branch Wheezing, Shortness of Breath, Bronchospa sm or Chest tightness. albuterol 2022-0 Yes [id number] 2{puff} Inhale 2 [facility] 90 5-01 Puffs ity of mcg/actuati 00:00: every 4 [place] as on inhaler 00 (four) Medical hours as Branch needed for Wheezing or Shortness of Breath. albuterol 2022-0 Yes [id number] 2.5mg Inhale 3 [facility] 2.5 mg /3 5-01 mL every 4 ity of mL (0.083 00:00: (four) [place] %) 00 hours. May Medical nebulizer also Branch solution nebulize one extra every 6 hours. benzonatate 2022-0 Yes [id number] 200mg Take 1 [facility] 200 mg 5-01 capsule by ity of capsule 00:00: mouth 3 [place] 00 (three) Medical times Branch daily as needed for Cough. albuterol 2022-0 Yes [id number] 2{puff} Inhale 2 [facility] 90 5-01 Puffs ity of mcg/actuati 00:00: every 4 [place] on inhaler 00 (four) Medical hours as Branch needed for Wheezing or Shortness of Breath. albuterol 2022-0 Yes [id number] 2.5mg Inhale 3 [facility] 2.5 mg /3 5-01 mL every 4 ity of mL (0.083 00:00: (four) [place] %) 00 hours. May Medical nebulizer also Branch solution nebulize one extra every 6 hours. benzonatate 2022-0 Yes [id number] 200mg Take 1 [facility] 200 mg 5-01 capsule by ity of capsule 00:00: mouth 3 (three) Medical times Branch daily as needed for Cough. albuterol 2022-0 Yes [id number] 2{puff} Inhale 2 [facility] 90 5-01 Puffs ity of mcg/actuati 00:00: every 4 [place] as on inhaler 00 (four) Medical hours as Branch needed for Wheezing or Shortness of Breath. albuterol 2022-0 Yes [id number] 2.5mg Inhale 3 [facility] 2.5 mg /3 5-01 mL every 4 ity of mL (0.083 00:00: (four) [place] %) 00 hours. May Medical nebulizer also Branch solution nebulize one extra every 6 hours. benzonatate 2022-0 Yes [id number] 200mg Take 1 [facility] 200 mg 5-01 capsule by ity of capsule 00:00: mouth 3 [place] 00 (three) Medical times Branch daily as needed for Cough. albuterol 2022-0 Yes [id number] 2{puff} Inhale 2 [facility] 90 5-01 Puffs ity of mcg/actuati 00:00: every 4 [place] as on inhaler 00 (four) Medical hours as Branch needed for Wheezing or Shortness of Breath. albuterol 3-0 Yes [id number] 2.5mg Inhale 3 [facility] 2.5 mg /3 5-01 mL every 4 ity of mL (0.083 00:00: (four) [place] %) 00 hours. May Medical nebulizer also Branch solution nebulize one extra every 6 hours. benzonatate 3-0 Yes [id number] 200mg Take 1 [facility] 200 mg 5-01 capsule by ity of capsule 00:00: mouth 3 [place] 00 (three) Medical times Branch daily as needed for Cough. albuterol 2022-0 Yes [id number] 2{puff} Inhale 2 [facility] 90 5-01 Puffs ity of mcg/actuati 00:00: every 4 [place] on inhaler 00 (four) Medical hours as Branch needed for Wheezing or Shortness of Breath. albuterol 3-0 Yes [id number] 2.5mg Inhale 3 [facility] 2.5 mg /3 5-01 mL every 4 ity of mL (0.083 00:00: (four) [place] %) 00 hours. May Medical nebulizer also Branch solution nebulize one extra every 6 hours. benzonatate 3-0 Yes [id number] 200mg Take 1 [facility] 200 mg 5-01 capsule by ity of capsule 00:00: mouth 3 [place] 00 (three) Medical times Branch daily as needed for Cough. albuterol 3-0 Yes [id number] 2{puff} Inhale 2 [facility] 90 5-01 Puffs ity of mcg/actuati 00:00: every 4 [place] on inhaler 00 (four) Medical hours as Branch needed for Wheezing or Shortness of Breath. albuterol 2023-0 Yes [id number] 2.5mg Inhale 3 [facility] 2.5 mg /3 5-01 mL every 4 ity of mL (0.083 00:00: (four) [place] %) 00 hours. May Medical nebulizer also Branch solution nebulize one extra every 6 hours. benzonatate 2023-0 Yes [id number] 200mg Take 1 [facility] 200 mg 5-01 capsule by ity of capsule 00:00: mouth 3 [place] 00 (three) Medical times Branch daily as needed for Cough. albuterol 3-0 Yes [id number] 2{puff} Inhale 2 [facility] 90 5-01 Puffs ity of mcg/actuati 00:00: every 4 [place] on inhaler 00 (four) Medical hours as Branch needed for Wheezing or Shortness of Breath. albuterol 3-0 Yes [id number] 2.5mg Inhale 3 [facility] 2.5 mg /3 5-01 mL every 4 ity of mL (0.083 00:00: (four) [place] %) 00 hours. May Medical nebulizer also Branch solution nebulize one extra every 6 hours. benzonatate 3-0 Yes [id number] 200mg Take 1 [facility] 200 mg 5-01 capsule by ity of capsule 00:00: mouth 3 (three) Medical times Branch daily as needed for Cough. albuterol 3-0 Yes [id number] 2{puff} Inhale 2 [facility] 90 5-01 Puffs ity of mcg/actuati 00:00: every 4 [place] on inhaler 00 (four) Medical hours as Branch needed for Wheezing or Shortness of Breath. albuterol 3-0 Yes [id number] 2.5mg Inhale 3 [facility] 2.5 mg /3 5-01 mL every 4 ity of mL (0.083 00:00: (four) [place] %) 00 hours. May Medical nebulizer also Branch solution nebulize one extra every 6 hours. benzonatate 3-0 Yes [id number] 200mg Take 1 [facility] 200 mg 5-01 capsule by ity of capsule 00:00: mouth 3 (three) Medical times Branch daily as needed for Cough. albuterol 3-0 Yes [id number] 2{puff} Inhale 2 [facility] 90 5-01 Puffs ity of mcg/actuati 00:00: every 4 [place] on inhaler 00 (four) Medical hours as Branch needed for Wheezing or Shortness of Breath. albuterol 2023-0 Yes [id number] 2.5mg Inhale 3 [facility] 2.5 mg /3 5-01 mL every 4 ity of mL (0.083 00:00: (four) [place] %) 00 hours. May Medical nebulizer also Branch solution nebulize one extra every 6 hours. benzonatate 2023-0 Yes [id number] 200mg Take 1 [facility] 200 mg 5-01 capsule by ity of capsule 00:00: mouth 3 (three) Medical times Branch daily as needed for Cough. albuterol 2022-0 Yes [id number] 2{puff} Inhale 2 [facility] 90 5-01 Puffs ity of mcg/actuati 00:00: every 4 [place] as on inhaler 00 (four) Medical hours as Branch needed for Wheezing or Shortness of Breath. albuterol 2022-0 Yes [id number] 2.5mg Inhale 3 [facility] 2.5 mg /3 5-01 mL every 4 ity of mL (0.083 00:00: (four) [place] %) 00 hours. May Medical nebulizer also Branch solution nebulize one extra every 6 hours. benzonatate 2022-0 Yes [id number] 200mg Take 1 [facility] 200 mg 5-01 capsule by ity of capsule 00:00: mouth 3 (three) Medical times Branch daily as needed for Cough. albuterol 2022-0 Yes [id number] 2{puff} Inhale 2 [facility] 90 5-01 Puffs ity of mcg/actuati 00:00: every 4 [place] as on inhaler 00 (four) Medical hours as Branch needed for Wheezing or Shortness of Breath. albuterol 2022-0 Yes [id number] 2.5mg Inhale 3 [facility] 2.5 mg /3 5-01 mL every 4 ity of mL (0.083 00:00: (four) [place] %) 00 hours. May Medical nebulizer also Branch solution nebulize one extra every 6 hours. benzonatate 2022-0 Yes [id number] 200mg Take 1 [facility] 200 mg 5-01 capsule by ity of capsule 00:00: mouth 3 [place] 00 (three) Medical times Branch daily as needed for Cough. albuterol 2022-0 Yes [id number] 2{puff} Inhale 2 [facility] 90 5-01 Puffs ity of mcg/actuati 00:00: every 4 [place] on inhaler 00 (four) Medical hours as Branch needed for Wheezing or Shortness of Breath. albuterol 3-0 Yes [id number] 2.5mg Inhale 3 [facility] 2.5 mg /3 5-01 mL every 4 ity of mL (0.083 00:00: (four) [place] %) 00 hours. May Medical nebulizer also Branch solution nebulize one extra every 6 hours. benzonatate 3-0 Yes [id number] 200mg Take 1 [facility] 200 mg 5-01 capsule by ity of capsule 00:00: mouth 3 [place] 00 (three) Medical times Branch daily as needed for Cough. albuterol 2022-0 Yes [id number] 2{puff} Inhale 2 [facility] 90 5-01 Puffs ity of mcg/actuati 00:00: every 4 [place] as on inhaler 00 (four) Medical hours as Branch needed for Wheezing or Shortness of Breath. albuterol 3-0 Yes [id number] 2.5mg Inhale 3 [facility] 2.5 mg /3 5-01 mL every 4 ity of mL (0.083 00:00: (four) [place] %) 00 hours. May Medical nebulizer also Branch solution nebulize one extra every 6 hours. benzonatate 2022-0 Yes [id number] 200mg Take 1 [facility] 200 mg 5-01 capsule by ity of capsule 00:00: mouth 3 [place] (three) Medical times Branch daily as needed for Cough. albuterol 2022-0 Yes [id number] 2{puff} Inhale 2 [facility] 90 5-01 Puffs ity of mcg/actuati 00:00: every 4 [place] as on inhaler 00 (four) Medical hours as Branch needed for Wheezing or Shortness of Breath. albuterol 3-0 Yes [id number] 2.5mg Inhale 3 [facility] 2.5 mg /3 5-01 mL every 4 ity of mL (0.083 00:00: (four) [place] %) 00 hours. May Medical nebulizer also Branch solution nebulize one extra every 6 hours. benzonatate 3-0 Yes [id number] 200mg Take 1 [facility] 200 mg 5-01 capsule by ity of capsule 00:00: mouth 3 [place] (three) Medical times Branch daily as needed for Cough. albuterol 3-0 Yes [id number] 2{puff} Inhale 2 [facility] 90 5-01 Puffs ity of mcg/actuati 00:00: every 4 [place] as on inhaler 00 (four) Medical hours as Branch needed for Wheezing or Shortness of Breath. albuterol 2023-0 Yes [id number] 2.5mg Inhale 3 [facility] 2.5 mg /3 5-01 mL every 4 ity of mL (0.083 00:00: (four) [place] %) 00 hours. May Medical nebulizer also Branch solution nebulize one extra every 6 hours. benzonatate 3-0 Yes [id number] 200mg Take 1 [facility] 200 mg 5-01 capsule by ity of capsule 00:00: mouth 3 (three) Medical times Branch daily as needed for Cough. albuterol 3-0 Yes [id number] 2{puff} Inhale 2 [facility] 90 5-01 Puffs ity of mcg/actuati 00:00: every 4 [place] as on inhaler 00 (four) Medical hours as Branch needed for Wheezing or Shortness of Breath. albuterol 3-0 Yes [id number] 2.5mg Inhale 3 [facility] 2.5 mg /3 5-01 mL every 4 ity of mL (0.083 00:00: (four) [place] %) 00 hours. May Medical nebulizer also Branch solution nebulize one extra every 6 hours. benzonatate 3-0 Yes [id number] 200mg Take 1 [facility] 200 mg 5-01 capsule by ity of capsule 00:00: mouth 3 (three) Medical times Branch daily as needed for Cough. albuterol 3-0 Yes [id number] 2.5mg Inhale 3 [facility] 2.5 mg /3 5-01 mL every 4 ity of mL (0.083 00:00: (four) [place] %) 00 hours. May Medical nebulizer also Branch solution nebulize one extra every 6 hours. benzonatate 3-0 Yes [id number] 200mg Take 1 [facility] 200 mg 5-01 capsule by ity of capsule 00:00: mouth 3 (three) Medical times Branch daily as needed for Cough. albuterol 2023-0 Yes [id number] 2.5mg Inhale 3 [facility] 2.5 mg /3 5-01 mL every 4 ity of mL (0.083 00:00: (four) [place] %) 00 hours. May Medical nebulizer also Branch solution nebulize one extra every 6 hours. benzonatate 2023-0 Yes [id number] 200mg Take 1 [facility] 200 mg 5-01 capsule by ity of capsule 00:00: mouth 3 [place] 00 (three) Medical times Branch daily as needed for Cough. albuterol 3-0 Yes [id number] 2.5mg Inhale 3 [facility] 2.5 mg /3 5-01 mL every 4 ity of mL (0.083 00:00: (four) [place] %) 00 hours. May Medical nebulizer also Branch solution nebulize one extra every 6 hours. benzonatate 3-0 Yes [id number] 200mg Take 1 [facility] 200 mg 5-01 capsule by ity of capsule 00:00: mouth 3 [place] 00 (three) Medical times Branch daily as needed for Cough. albuterol 2022-0 Yes [id number] 2.5mg Inhale 3 [facility] 2.5 mg /3 5-01 mL every 4 ity of mL (0.083 00:00: (four) [place] %) 00 hours. May Medical nebulizer also Branch solution nebulize one extra every 6 hours. albuterol 2022-0 Yes [id number] 2.5mg Inhale 3 [facility] 2.5 mg /3 5-01 mL every 4 ity of mL (0.083 00:00: (four) [place] %) 00 hours. May Medical nebulizer also Branch solution nebulize one extra every 6 hours. albuterol 3-0 Yes [id number] 2.5mg Inhale 3 [facility] 2.5 mg /3 5-01 mL every 4 ity of mL (0.083 00:00: (four) [place] %) 00 hours. May Medical nebulizer also Branch solution nebulize one extra every 6 hours. albuterol 3-0 Yes [id number] 2.5mg Inhale 3 [facility] 2.5 mg /3 5-01 mL every 4 ity of mL (0.083 00:00: (four) [place] %) 00 hours. May Medical nebulizer also Branch solution nebulize one extra every 6 hours. albuterol 3-0 Yes [id number] 2.5mg Inhale 3 [facility] 2.5 mg /3 5-01 mL every 4 ity of mL (0.083 00:00: (four) [place] %) 00 hours. May Medical nebulizer also Branch solution nebulize one extra every 6 hours. albuterol 2022-0 Yes [id number] 2.5mg Inhale 3 [facility] 2.5 mg /3 5-01 mL every 4 ity of mL (0.083 00:00: (four) [place] %) 00 hours. May Medical nebulizer also Branch solution nebulize one extra every 6 hours. albuterol 2022-0 2022- No [id number] 2.5mg Inhale 3 [facility] 2.5 mg /3 5-01 06-15 mL every 4 ity of mL (0.083 00:00: 00:00 (four) [place] %) 00 :00 hours. May Medical nebulizer also Branch solution nebulize one extra every 6 hours. benzonatate 2022-2022- No [id number] 200mg Take 1 [facility] 200 mg 01-17- capsule by ity of capsule 00:00: 00:00 mouth 3 [place] 00 :00 (three) Medical times Branch daily as needed for Cough. albuterol 2022-0 2022- No [id number] 2{puff} Inhale 2 [facility] 90 01-17 05-19 Puffs ity of mcg/actuati 00:00: 00:00 every 4 [place] on inhaler 00 :00 (four) Medical hours as Branch needed for Wheezing or Shortness of Breath. predniSONE 2022-0 2022- No [id number] 50mg Take 1 [facility] 50 mg 01-17 05-03 tablet by ity of tablet 00:00: 00:00 mouth in [place] 00 :00 the Medical morning. Branch ipratropium 2022-0 2022- No [id number] .5mg Inhale 2.5 Univers 0.02 % 01-17 [...] by ity of tablet 14:36: mouth in [place] 57 the Medical morning Branch and 1 tablet in the evening. rivaroxaban 2023-0 Yes 15mg Take 1 Univ ers 15 mg 4-21 tablet by ity of tablet 14:36: mouth in [place] [address] the Medical morning. Branch ASPIRIN 2023-0 Yes 81mg Take 81 mg Univ ers ORAL 4-21 by mouth ity of 14:36: in the [place] [address] morning. Medical tablet Branch benazepriL 2023-0 Yes 10mg Take 1 Unive rs 10 mg 4-21 tablet by ity of tablet 14:36: mouth in [place] [address] the Medical morning. Branch busPIRone 2023-0 Yes 10mg Take 1 Univer s 10 mg 4-21 tablet by ity of tablet 14:36: mouth in [place] [address] the Medical morning Branch and 1 tablet in the evening. rivaroxaban 2023-0 Yes 15mg Take 1 Univ ers 15 mg 4-21 tablet by ity of tablet 14:36: mouth in [place] [address] the Medical morning. Branch ASPIRIN 2023-0 Yes 81mg Take 81 mg Univ ers ORAL 4-21 by mouth ity of 14:36: in the [place] [address] morning. Medical tablet Branch benazepriL 2023-0 Yes 10mg Take 1 Unive rs 10 mg 4-21 tablet by ity of tablet 14:36: mouth in [place] [address] the Medical morning. Branch busPIRone 2023-0 Yes 10mg Take 1 Univer s 10 mg 4-21 tablet by ity of tablet 14:36: mouth in [place] [address] the Medical morning Branch and 1 tablet in the evening. rivaroxaban 2023-0 Yes 15mg Take 1 Univ ers 15 mg 4-21 tablet by ity of tablet 14:36: mouth in [place] [address] the Medical morning. Branch ASPIRIN 2023-0 Yes 81mg Take 81 mg Univ ers ORAL 4-21 by mouth ity of 14:36: in the [place] [address] morning. Medical tablet Branch benazepriL 2023-0 Yes 10mg Take 1 [facility] rs 10 mg 4-21 tablet by ity of tablet 14:36: mouth in [place] [address] the Medical morning. Branch busPIRone 2023-0 Yes 10mg Take 1 [facility]iver s 10 mg 4-21 tablet by ity of tablet 14:36: mouth in [place] [address] the Medical morning Branch and 1 tablet in the evening. rivaroxaban 2023-0 Yes 15mg Take 1 Univ ers 15 mg 4-21 tablet by ity of tablet 14:36: mouth in [place] [address] the Medical morning. Branch ASPIRIN 2023-0 Yes 81mg Take 81 mg Univ ers ORAL 4-21 by mouth ity of 14:36: in the [place] [address] morning. Medical tablet Branch benazepriL 2023-0 Yes 10mg Take 1 [facility] rs 10 mg 4-21 tablet by ity of tablet 14:36: mouth in [place] [address] the Medical morning. Branch donepeziL 5 2023-0 Yes 5mg Take 1 Univ ers mg tablet 4-21 tablet by ity o f 00:00: mouth in [place] 00 the Medical morning. Branch memantine 5 2023-0 Yes 5mg Take 1 Univ ers mg tablet 4-21 tablet by ity o f 00:00: mouth in [place] 00 the Medical morning. Branch donepeziL 5 2023-0 Yes 5mg Take 1 Univ ers mg tablet 4-21 tablet by ity o f 00:00: mouth in [place] 00 the Medical morning. Branch memantine 5 2023-0 Yes 5mg Take 1 Univ ers mg tablet 4-21 tablet by ity o f 00:00: mouth in [place] 00 the Medical morning. Branch donepeziL 5 2023-0 Yes 5mg Take 1 Univ ers mg tablet 4-21 tablet by ity o f 00:00: mouth in [place] 00 the Medical morning. Branch memantine 5 2023-0 Yes 5mg Take 1 Univ ers mg tablet 4-21 tablet by ity o f 00:00: mouth in [place] 00 the Medical morning. Branch donepeziL 5 2023-0 Yes 5mg Take 1 Univ ers mg tablet 4-21 tablet by ity o f 00:00: mouth in [place] 00 the Medical morning. Branch memantine 5 2023-0 Yes 5mg Take 1 Univ ers mg tablet 4-21 tablet by ity o f 00:00: mouth in [place] 00 the Medical morning. Branch donepeziL 5 2023-0 Yes 5mg Take 1 Univ ers mg tablet 4-21 tablet by ity o f 00:00: mouth in [place] 00 the Medical morning. Branch memantine 5 2023-0 Yes 5mg Take 1 Univ ers mg tablet 4-21 tablet by ity o f 00:00: mouth in [place] the Medical morning. Branch donepeziL 5 2023-0 Yes 5mg Take 1 Univ ers mg tablet 4-21 tablet by ity o f 00:00: mouth in [place] the Medical morning. Branch memantine 5 2023-0 Yes 5mg Take 1 Univ ers mg tablet 4-21 tablet by ity o f 00:00: mouth in [place] the Medical morning. Branch donepeziL 5 2023-0 Yes 5mg Take 1 Univ ers mg tablet 4-21 tablet by ity o f 00:00: mouth in [place] the Medical morning. Branch memantine 5 2023-0 Yes 5mg Take 1 Univ ers mg tablet 4-21 tablet by ity o f 00:00: mouth in [place] the Medical morning. Branch donepeziL 5 2023-0 Yes 5mg Take 1 Univ ers mg tablet 4-21 tablet by ity o f 00:00: mouth in [place] the Medical morning. Branch memantine 5 2023-0 Yes 5mg Take 1 Univ ers mg tablet 4-21 tablet by ity o f 00:00: mouth in [place] the Medical morning. Branch donepeziL 5 2023-0 Yes 5mg Take 1 [facility] ers mg tablet 4-21 tablet by ity o f 00:00: mouth in [place] 00 the Medical morning. Branch memantine 5 2023-0 Yes 5mg Take 1 [facility] ers mg tablet 4-21 tablet by ity o f 00:00: mouth in [place] the Medical morning. Branch donepeziL 5 2023-0 Yes 5mg Take 1 [facility] ers mg tablet 4-21 tablet by ity o f 00:00: mouth in [place] 00 the Medical morning. Branch memantine 5 2023-0 Yes 5mg Take 1 [facility] ers mg tablet 4-21 tablet by ity o f 00:00: mouth in [place] 00 the Medical morning. Branch donepeziL 5 2023-0 Yes 5mg Take 1 [facility] ers mg tablet 4-21 tablet by ity o f 00:00: mouth in [place] 00 the Medical morning. Branch memantine 5 2023-0 Yes 5mg Take 1 [facility] ers mg tablet 4-21 tablet by ity o f 00:00: mouth in [place] 00 the Medical morning. Branch donepeziL 5 2023-0 Yes 5mg Take 1 [facility] ers mg tablet 4-21 tablet by ity o f 00:00: mouth in [place] 00 the Medical morning. Branch memantine 5 2023-0 Yes 5mg Take 1 [facility] ers mg tablet 4-21 tablet by ity o f 00:00: mouth in [place] the Medical morning. Branch donepeziL 5 2023-0 Yes 5mg Take 1 [facility] ers mg tablet 4-21 tablet by ity o f 00:00: mouth in [place] the Medical morning. Branch memantine 5 2023-0 Yes 5mg Take 1 [facility] ers mg tablet 4-21 tablet by ity o f 00:00: mouth in [place] the Medical morning. Branch donepeziL 5 2023-0 Yes 5mg Take 1 [facility] ers mg tablet 4-21 tablet by ity o f 00:00: mouth in [place] the Medical morning. Branch memantine 5 2023-0 Yes 5mg Take 1 [facility] ers mg tablet 4-21 tablet by ity o f 00:00: mouth in [place] the Medical morning. Branch donepeziL 5 2023-0 Yes 5mg Take 1 [facility] ers mg tablet 4-21 tablet by ity o f 00:00: mouth in [place] 00 the Medical morning. Branch memantine 5 2023-0 Yes 5mg Take 1 [facility] ers mg tablet 4-21 tablet by ity o f 00:00: mouth in [place] 00 the Medical morning. Branch donepeziL 5 2023-0 Yes 5mg Take 1 [facility] ers mg tablet 4-21 tablet by ity o f 00:00: mouth in [place] 00 the Medical morning. Branch memantine 5 2023-0 Yes 5mg Take 1 [facility] ers mg tablet 4-21 tablet by ity o f 00:00: mouth in [place] 00 the Medical morning. Branch donepeziL 5 2023-0 Yes 5mg Take 1 [facility] ers mg tablet 4-21 tablet by ity o f 00:00: mouth in [place] 00 the Medical morning. Branch memantine 5 2023-0 Yes 5mg Take 1 [facility] ers mg tablet 4-21 tablet by ity o f 00:00: mouth in [place] 00 the Medical morning. Branch donepeziL 5 2023-0 Yes 5mg Take 1 [facility] ers mg tablet 4-21 tablet by ity o f 00:00: mouth in [place] 00 the Medical morning. Branch memantine 5 2023-0 Yes 5mg Take 1 [facility] ers mg tablet 4-21 tablet by ity o f 00:00: mouth in [place] 00 the Medical morning. Branch donepeziL 5 2023-0 Yes 5mg Take 1 [facility] ers mg tablet 4-21 tablet by ity o f 00:00: mouth in [place] the Medical morning. Branch memantine 5 2023-0 Yes 5mg Take 1 [facility] ers mg tablet 4-21 tablet by ity o f 00:00: mouth in [place] the Medical morning. Branch donepeziL 5 2023-0 Yes 5mg Take 1 [facility] ers mg tablet 4-21 tablet by ity o f 00:00: mouth in [place] the Medical morning. Branch memantine 5 2023-0 Yes 5mg Take 1 [facility] ers mg tablet 4-21 tablet by ity o f 00:00: mouth in [place] the Medical morning. Branch donepeziL 5 2023-0 Yes 5mg Take 1 [facility] ers mg tablet 4-21 tablet by ity o f 00:00: mouth in [place] the Medical morning. Branch memantine 5 2023-0 Yes 5mg Take 1 [facility] ers mg tablet 4-21 tablet by ity o f 00:00: mouth in [place] 00 the Medical morning. Branch donepeziL 5 2023-0 Yes 5mg Take 1 [facility] ers mg tablet 4-21 tablet by ity o f 00:00: mouth in [place] 00 the Medical morning. Branch memantine 5 2023-0 Yes 5mg Take 1 [facility] ers mg tablet 4-21 tablet by ity o f 00:00: mouth in [place] 00 the Medical morning. Branch donepeziL 5 2023-0 Yes 5mg Take 1 [facility] ers mg tablet 4-21 tablet by ity o f 00:00: mouth in [place] 00 the Medical morning. Branch memantine 5 2023-0 Yes 5mg Take 1 [facility] ers mg tablet 4-21 tablet by ity o f 00:00: mouth in [place] 00 the Medical morning. Branch donepeziL 5 2023-0 Yes 5mg Take 1 [facility] ers mg tablet 4-21 tablet by ity o f 00:00: mouth in [place] 00 the Medical morning. Branch memantine 5 2023-0 Yes 5mg Take 1 [facility] ers mg tablet 4-21 tablet by ity o f 00:00: mouth in [place] 00 the Medical morning. Branch donepeziL 5 2023-0 Yes 5mg Take 1 [facility] ers mg tablet 4-21 tablet by ity o f 00:00: mouth in [place] 00 the Medical morning. Branch memantine 5 2023-0 Yes 5mg Take 1 [facility] ers mg tablet 4-21 tablet by ity o f 00:00: mouth in [place] 00 the Medical morning. Branch donepeziL 5 2023-0 Yes 5mg Take 1 [facility] ers mg tablet 4-21 tablet by ity o f 00:00: mouth in [place] 00 the Medical morning. Branch memantine 5 2023-0 Yes 5mg Take 1 [facility] ers mg tablet 4-21 tablet by ity o f 00:00: mouth in [place] 00 the Medical morning. Branch donepeziL 5 2023-0 Yes 5mg Take 1 Univ ers mg tablet 4-21 tablet by ity o f 00:00: mouth in [place] 00 the Medical morning. Branch memantine 5 2023-0 Yes 5mg Take 1 [facility] ers mg tablet 4-21 tablet by ity o f 00:00: mouth in [place] 00 the Medical morning. Branch donepeziL 5 2023-0 2023- No 5mg Take 1 Uni vers mg tablet 4-09 03-13 tablet by ity of 00:00: 00:00 mouth in [place] 00 :00 the Medical morning. Branch memantine 5 2023-0 2023- No 5mg Take 1 [facility] vers mg tablet 4-21 -13 tablet by ity of 00:00: 00:00 mouth in [place] 00 :00 the Medical morning. Branch donepeziL 5 2023-0 2023- No 5mg Take 1 [facility] vers mg tablet 4-21 -13 tablet by ity of 00:00: 00:00 mouth in [place] 00 :00 the Medical morning. Branch memantine 5 2023-0 2023- No 5mg Take 1 [facility] vers mg tablet 01-07-13 tablet by ity of 00:00: 00:00 mouth in [place] 00 :00 the Medical morning. Branch tamsulosin 2022-0 2022- No [id number] .4mg Take 1 [facility] 0.4 mg 24 3-27 -27 capsule by ity of hr capsule 00:00: 04:59 mouth in [place] 00 :00 the Medical morning Branch for 30 days. tamsulosin 2022-0 2022- No [id number] .4mg Take 1 [facility] 0.4 mg 24 3-27 -27 capsule by ity of hr capsule 00:00: 04:59 mouth in [place] 00 :00 the Medical morning Branch for 30 days. tamsulosin 2022-0 2022- No [id number] .4mg Take 1 [facility] 0.4 mg 24 3-13 01- capsule by ity of hr capsule 00:00: 04:59 mouth in [place] 00 :00 the Medical morning Branch for 30 days. tamsulosin 2022-0 2022- No [id number] .4mg Take 1 [facility] 0.4 mg 24 3-13 01-27 capsule by ity of hr capsule 00:00: 04:59 mouth in [place] 00 :00 the Medical morning Branch for 30 days. tamsulosin 2022-0 2022- No [id number] .4mg Take 1 [facility] 0.4 mg 24 3-13 01- capsule by ity of hr capsule 00:00: 04:59 mouth in [place] 00 :00 the Medical morning Branch for 30 days. tamsulosin 2022-0 2022- No [id number] .4mg Take 1 [facility] 0.4 mg 24 [...] 12/12/22 at 1230, Until Discontinu ed, Routine
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 rivaroxaban 2023-0 Yes 15mg Take 1 Univ ers (XARELTO) 3-26 tablet by ity o f 15 mg 14:37: mouth in [place] tablet 13 the Medical morning. Branch aspirin 81 3-0 Yes 81mg Take 81 mg U nivers mg chewable 3-26 by mouth ity of tablet 14:37: in the [place] [address] morning. Medical tablet Branch busPIRone 2023-0 Yes 10mg Take 1 Univer s 10 mg 3-26 tablet by ity of tablet 14:37: mouth in [place] 13 the Medical morning Branch and 1 tablet in the evening. rivaroxaban 2023-0 Yes 15mg Take 1 Univ ers (XARELTO) 3-26 tablet by ity o f 15 mg 14:37: mouth in [place] tablet 13 the Medical morning. Branch busPIRone 2023-0 Yes 10mg Take 1 Univer s 10 mg 3-26 tablet by ity of tablet 14:37: mouth in [place] 13 the Medical morning Branch and 1 tablet in the evening. rivaroxaban 2023-0 Yes 15mg Take 1 Univ ers (XARELTO) 3-26 tablet by ity o f 15 mg 14:37: mouth in [place] tablet 13 the Medical morning. Branch aspirin 81 2023-0 Yes 81mg Take 81 mg U nivers mg chewable 3-26 by mouth ity of tablet 14:37: in the [place] [address] morning. Medical tablet Branch busPIRone 2023-0 Yes 10mg Take 1 Un[facility] s 10 mg 3-26 tablet by ity of tablet 14:37: mouth in [place] 13 the Medical morning Branch and 1 tablet in the evening. rivaroxaban 2023-0 Yes 15mg Take 1 Univ ers (XARELTO) 3-26 tablet by ity o f 15 mg 14:37: mouth in [place] tablet 13 the Medical morning. Branch aspirin 81 2023-0 Yes 81mg Take 81 mg U nivers mg chewable 12-12 by mouth ity of tablet 14:37: in the [place] 13 morning. Medical tablet Branch tamsulosin Yes .4mg 0.4 mg, Univ ers (FLOMAX) 12-12 Oral, ity of capsule 0.4 14:00: DAILY, [facility] s mg 00 First dose Medical on Sun Branch 12/12/22 at 0900, Until Discontinu ed, Routine aspirin EC Yes 81mg 81 mg, Unive rs tablet 81 12-12 Oral, ity of mg 14:00: DAILY, [place] 00 First dose Medical on Sun Branch 12/12/22 at 0900, Until Discontinu ed, Routine methylpredn Yes 40mg 40 mg, Univ ers isolone sod 12-12 Intravenou it y of succ 14:00: s, DAILY, [place] (SOLU-MEDRO 00 First dose Me dical L) (after Branch injection last 40 mg modificati on) on 12/12/22 at 0900, Until Discontinu ed, Routine carvediloL 2022- No 25mg Take 1 Univ ers 25 mg 12-12 tablet by ity of tablet 11:47: 00:00 mouth in [place] 13 :00 the Medical morning Branch and 1 tablet in the evening. Take with meals. busPIRone 2022- No 30mg Take 1 Unive rs 30 mg 12-12 tablet by ity of tablet 11:47: 00:00 mouth in [place] 13 :00 the Medical morning Branch and 1 tablet in the evening. KCL 20 mEq 2022- No Take by Uni vers tablet 12-12 mouth 2 ity of 11:47: 00:00 (two) [place] 13 :00 times Medical daily. Branch benazepriL 2022- No 10mg Take 1 Univ ers 10 mg 12-12 tablet by ity of tablet 11:47: 00:00 mouth in [place] 13 :00 the Medical morning. Branch hydroCHLORO 2022- No 25mg Take 1 Uni vers thiazide 25 12-12 tablet by it y of mg tablet 11:47: 00:00 mouth in [facility] as 13 :00 the Medical morning. Branch melatonin 2023-0 Yes 6mg 6 mg, Univers (MELATIN) 3-26 Oral, QHS, ity of tablet 6 mg 02:00: First dose [place] 00 on [facility] Medical 12/11/22 at Branch 2100, Until Discontinu ed, Routine atorvastati Yes 40mg 40 mg, Univ ers n (LIPITOR) 3-26 Oral, QHS, it y of tablet 40 02:00: First dose [place] mg 00 on [facility] 12/11/22 at Branch 2100, Until Discontinu ed, Routine carvediloL 2022- No [id number] 3.125mg Take 1 Univers 3.125 mg 3-12 01- tablet by ity o f tablet 00:00: 04:59 mouth in [place] 00 :00 the [facility] and 1 tablet in the evening. Take with meals. Do all this for 30 days. atorvastati 2022- No [id number] 40mg Take 1 Univers n 40 mg -12 01- tablet by ity of tablet 00:00: 04:59 mouth at [place] 00 :00 bedtime Medical for 30 Branch days. donepeziL 5 2022- No [id number] 5mg Take 1 Univers mg tablet 12-12- tablet by ity of 00:00: 04:59 mouth in [place] 00 :00 the [facility] for 30 days. memantine 5 2022- No [id number] 5mg Take 1 Univers mg tablet 12-12- tablet by ity of 00:00: 04:59 mouth in [place] 00 :00 the [facility] for 30 days. carvediloL 2022- No [id number] 3.125mg Take 1 Univers 3.125 mg -12 01- tablet by ity o f tablet 00:00: 04:59 mouth in [place] 00 :00 the [facility] morning [place] and 1 tablet in the evening. Take with meals. Do all this for 30 days. atorvastati 2022- No [id number] 40mg Take 1 Univers n 40 mg 3-12 01-26 tablet by ity of tablet 00:00: 04:59 mouth [facility] [place] [facility] Branch [facility] donepeziL 5 2022- No [id number] 5mg Take 1 Univers mg tablet -12 01- tablet by ity of 00:00: 04:59 mouth in [place] 00 :00 the Medical morning Branch for 30 days. memantine 5 2022- No [id number] 5mg Take 1 Univers mg tablet 3-12 01- tablet by ity of 00:00: 04:59 mouth in [place] 00 :00 the Medical morning Branch for 30 days. carvediloL 2022- No [id number] 3.125mg Take 1 Univers 3.125 mg 3-12 01- tablet by ity o f tablet 00:00: 04:59 mouth in [place] 00 :00 the Medical morning Branch and 1 tablet in the evening. Take with meals. Do all this for 30 days. atorvastati 2022- No [id number] 40mg Take 1 Univers n 40 mg -12 01- tablet by ity of tablet 00:00: 04:59 mouth at [place] 00 :00 bedtime Medical for 30 Branch days. donepeziL 5 2022- No [id number] 5mg Take 1 Univers mg tablet 12-12- tablet by ity of 00:00: 04:59 mouth in [place] 00 :00 the [facility] morning [place] for 30 days. memantine 5 2022- No [id number] 5mg Take 1 Univers mg tablet -12 01- tablet by ity of 00:00: 04:59 mouth in [place] 00 :00 the [facility] morning [place] for 30 days. carvediloL 2022- No [id number] 3.125mg Take 1 Univers 3.125 mg -12 01- tablet by ity o f tablet 00:00: 04:59 mouth in [place] 00 :00 the [facility] morning Branch and 1 tablet in the evening. Take with meals. Do all this for 30 days. atorvastati 2022- No [id number] 40mg Take 1 Univers n 40 mg 3-12 01- tablet by ity of tablet 00:00: 04:59 mouth at [place] 00 :00 bedtime Medical for 30 Branch days. carvediloL 2022- No [id number] 3.125mg Take 1 Univers 3.125 mg 3-12 01- tablet by ity o f tablet 00:00: 04:59 mouth in [place] 00 :00 the [facility] and 1 tablet in the evening. Take with meals. Do all this for 30 days. atorvastati 2022- No [id number] 40mg Take 1 Univers n 40 mg 12-12 tablet by ity of tablet 00:00: 04:59 [facility] [place] [facility] carvediloL 2022- No [id number] 3.125mg Take 1 Univers 3.125 mg 12-12 tablet by ity o f tablet 00:00: 04:59 mouth in [place] 00 :00 the [facility] and 1 tablet in the evening. Take with meals. Do all this for 30 days. atorvastati 2022- No [id number] 40mg Take 1 Univers n 40 mg 12-12 tablet by ity of tablet 00:: 04:59 [facility] [place] [facility] donepeziL 5 2022- No [id number] 5mg Take 1 Univers mg tablet 12-12 tablet by ity of 00:00: 00:00 mouth in [place] 00 :00 the [facility] for 30 days. memantine 5 2022-2022- No [id number] 5mg Take 1 Univers mg tablet 12-12 tablet by ity of 00:00: 00:00 mouth in [place] 00 :00 the [facility] for 30 days. donepeziL 5 2022- No [id number] 5mg Take 1 Univers mg tablet 12-12 tablet by ity of 00:00: 00:00 mouth in [place] 00 :00 [facility] for 30 days. memantine 5 2022- No [id number] 5mg Take 1 Univers mg tablet 12-12 tablet by ity of 00:00: 00:00 mouth in [place] 00 :00 [facility] for 30 days. levalbutero Yes 1.25mg 1.25 mg, Univers l (XOPENEX) 3-25 Inhalation it y of nebulizer 17:00: , QID, [place] solution 00 First dose Medic al 1.25 mg (after Branch last modificati on) on 12/11/22 at 1200, Until Discontinu ed, Routine rivaroxaban 0 Yes 15mg 15 mg, Univ ers (XARELTO) 3-25 Oral, ity of tablet 15 14:00: DAILY, [place] mg 00 First dose Medical on [facility] Branch 12/11/22 at 0900, Until Discontinu ed, Routine nicotine 2022-0 Yes 1{patch 1 Patch, Un ig[facility] (NICODERM) 12-11 } Topical, ity o f 21 mg/24 hr 13:45: Administer [place] patch 1 00 over 24 Medical Patch Hours, Branch Q24H, First dose on 12/11/22 at 0845, Until Discontinu ed, Routine ipratropium 0 Yes .5mg 0.5 mg, Uni vers (ATROVENT) 25 Inhalation ity of 0.02 % 13:00: , QID, [place] nebulizer 00 First dose Medi lucho solution on [facility] Branch 0.5 mg 12/11/22 at 0800, Until Discontinu ed carvediloL 0 Yes 3.125mg 3.125 mg, Univers (COREG) 325 Oral, BID ity of tablet 13:00: MEALS, [place] 3.125 mg 00 First dose Medic al on [facility] Branch 12/11/22 at 0800, Until Discontinu ed, Routine busPIRone 0 Yes 10mg 10 mg, Univer s (BUSPAR) 3-25 Oral, BID, ity o f tablet 10 13:00: First dose [place] mg 00 on [facility] Medical 12/11/22 at Branch 0800, Until Discontinu ed, Routine methylpredn 2022- No 125mg 125 mg, U nivers isolone sod 12-11-25 Intravenou i ty of succ 05:00: 12:35 s, Q6H, [place] (SOLU-MEDRO 00 :32 First dose Me dical L) on [facility] Branch injection 12/11/22 at [...] Yes 2{puff} 2 Puff, [facility] (VENTOLIN) 12-11 Inhalation ity of inhaler 2 03:17: , Q4HPRN, [place] Puff 09 Starting Medical on Fri Branch 12/10/22 at 2217, Until Discontinu ed, Routine, Wheezing, Shortness of Breath ondansetron 2022-0 Yes 4mg 4 mg, Slow Univers (ZOFRAN 325 IV Push, ity of (PF)) 03:05: Q6HPRN, [place] injection 4 14 Starting Medi lucho mg on Fri Branch 12/10/22 at 2205, Until Discontinu ed, Routine, Nausea and Vomiting (N/V) HYDROcodone 0 Yes 1{tbl} 1 tablet, Univers -acetaminop 25 Oral, ity of hen (NORCO) 03:05: Q6HPRN, [place] 10-325 mg 00 Starting Medica l tablet 1 on Fri Branch tablet 12/10/22 at 2205, Until Discontinu ed, Routine, Pain (scale 7-10) HYDROcodone 2022-0 202- No 1{tbl} 1 tablet, Univers -acetaminop 12-11 03-27 Oral, ity of hen (NORCO 03:04: 03:03 Q6HPRN, [place] 5) 5-325 mg 56 :56 Starting Medi lucho tablet 1 on Fri Branch tablet 12/10/22 at 2204, Until 12/12/22 [...] 2000, Until Discontinu ed, Routine NaCl 0.9% 3-0 2023- No 1000mL at 999 Uni vers (NS) bolus 3-25 03-25 mL/hr, ity of infusion 00:15: 03:18 1,000 mL, [place] 1,000 mL 00 :00 IV Medical Infusion, Branch ONCE, 1 dose, On 12/10/22 at 1915, STAT ipratropium 2022-0 Yes .5mg 0.5 mg, Uni vers (ATROVENT) 3-24 Inhalation ity of 0.02 % 23:48: , Q4HPRN, [place] nebulizer 58 Starting Medica l solution on Tue Branch 0.5 mg 12/10/22 at 1848, Until Discontinu ed, Routine, Wheezing, Shortness of Breath NaCl 0.9% 3-0 2023- No 500mL at 999 Univ ers (NS) bolus 3-18 03-18 mL/hr, 500 it y of infusion 16:15: 15:41 mL, IV [place] 500 mL 00 :58 Piggyback, Medical ONCE, 1 Branch dose, On 12/04/22 at 1115, STAT carvediloL 3-0 Yes 3.125mg Take 1 [facility] ig[facility] 3.125 mg 3-18 tablet by ity of tablet 12:44: mouth in [place] [address] the Medical morning Branch and 1 tablet in the evening. Take with meals. busPIRone 3-0 Yes 10mg Take 1 Univer s 10 mg 3-18 tablet by ity of tablet 12:44: mouth in [place] [address] the Medical morning Branch and 1 tablet in the evening. busPIRone 2023-0 Yes 30mg Take 1 Univer s 30 mg 3-18 tablet by ity of tablet 12:44: mouth in [place] [address] the Medical morning Branch and 1 tablet in the evening. KCL 20 mEq 3-0 Yes Take by Univ ers tablet 3-18 mouth 2 ity of 12:44: (two) [place] [address] times Medical daily. Branch benazepriL 3-0 Yes 10mg Take 1 Unive rs 10 mg 3-18 tablet by ity of tablet 12:44: mouth in [place] [address] the Medical morning. Branch rivaroxaban 3-0 Yes 15mg Take 1 Univ ers (XARELTO) 3-18 tablet by ity o f 15 mg 12:44: mouth in [place] tablet 03 the Medical morning. Branch carvediloL 2023-0 Yes 3.125mg Take 1 Un igor 3.125 mg 3-18 tablet by ity of tablet 12:44: mouth in [place] 03 the Medical morning Branch and 1 tablet in the evening. Take with meals. busPIRone 2023-0 Yes 10mg Take 1 Univer s 10 mg 3-18 tablet by ity of tablet 12:44: mouth in [place] 03 the Medical morning Branch and 1 tablet in the evening. busPIRone 2023-0 Yes 30mg Take 1 Univer s 30 mg 3-18 tablet by ity of tablet 12:44: mouth in [place] 03 the Medical morning Branch and 1 tablet in the evening. KCL 20 mEq 2023-0 Yes Take by Univ ers tablet 3-18 mouth 2 ity of 12:44: (two) [place] [address] times Medical daily. Branch benazepriL 2023-0 Yes 10mg Take 1 Unive rs 10 mg 3-18 tablet by ity of tablet 12:44: mouth in [place] 03 the Medical morning. Branch rivaroxaban 2023-0 Yes 15mg Take 1 Univ ers (XARELTO) 3-18 tablet by ity o f 15 mg 12:44: mouth in [place] tablet 03 the Medical morning. Branch carvediloL 2023-0 Yes 3.125mg Take 1 Un igor 3.125 mg 3-18 tablet by ity of tablet 12:44: mouth in [place] [address] the Medical morning Branch and 1 tablet in the evening. Take with meals. busPIRone 2023-0 Yes 10mg Take 1 Univer s 10 mg 3-18 tablet by ity of tablet 12:44: mouth in [place] 03 the Medical morning Branch and 1 tablet in the evening. busPIRone 2023-0 Yes 30mg Take 1 Univer s 30 mg 3-18 tablet by ity of tablet 12:44: mouth in [place] [address] the Medical morning Branch and 1 tablet in the evening. KCL 20 mEq 2023-0 Yes Take by Univ ers tablet 3-18 mouth 2 ity of 12:44: (two) [place] [address] times Medical daily. Branch benazepriL 2023-0 Yes 10mg Take 1 Unive rs 10 mg 3-18 tablet by ity of tablet 12:44: mouth in [place] 03 the Medical morning. Branch rivaroxaban 2023-0 [...] by ity of tablet 12:44: mouth in [place] 03 the Medical morning Branch and 1 tablet in the evening. KCL 20 mEq 2022-0 Yes Take by Univ ers tablet 3-18 mouth 2 ity of 12:44: (two) [place] 03 times Medical daily. Branch benazepriL 2022-0 Yes 10mg Take 1 Unive rs 10 mg 3-18 tablet by ity of tablet 12:44: mouth in [place] 03 the Medical morning. Branch rivaroxaban 2022-0 Yes 15mg Take 1 Univ ers (XARELTO) 3-18 tablet by ity o f 15 mg 12:44: mouth in [place] tablet 03 the Medical morning. Branch albuterol 2022-0 Yes [id number] 2{puff} Inhale 2 Univers 90 3-18 Puffs ity of mcg/actuati 00:00: every 6 [place] on inhaler 00 (six) Medical hours as Branch needed for Wheezing or Shortness of Breath. albuterol 2022-0 Yes [id number] 2{puff} Inhale 2 Univers 90 3-18 Puffs ity of mcg/actuati 00:00: every 6 [place] on inhaler 00 (six) Medical hours as Branch needed for Wheezing or Shortness of Breath. albuterol 2022-0 Yes [id number] 2{puff} Inhale 2 Univers 90 3-18 Puffs ity of mcg/actuati 00:00: every 6 [place] on inhaler 00 (six) Medical hours as Branch needed for Wheezing or Shortness of Breath. albuterol Yes [id number] 2{puff} Inhale 2 [facility] 90 3-18 Puffs ity of mcg/actuati 00:00: every 6 [place] on inhaler 00 (six) Medical hours as Branch needed for Wheezing or Shortness of Breath. albuterol Yes [id number] 2{puff} Inhale 2 [facility] 90 3-18 Puffs ity of mcg/actuati 00:00: every 6 [place] on inhaler 00 (six) Medical hours as Branch needed for Wheezing or Shortness of Breath. albuterol Yes [id number] 2{puff} Inhale 2 [facility] 90 3-18 Puffs ity of mcg/actuati 00:00: every 6 [place] on inhaler 00 (six) Medical hours as Branch needed for Wheezing or Shortness of Breath. albuterol Yes [id number] 2{puff} Inhale 2 [facility] 90 3-18 Puffs ity of mcg/actuati 00:00: every 6 [place] on inhaler 00 (six) Medical hours as Branch needed for Wheezing or Shortness of Breath. albuterol Yes [id number] 2{puff} Inhale 2 [facility] 90 3-18 Puffs ity of mcg/actuati 00:00: every 6 [place] on inhaler 00 (six) Medical hours as Branch needed for Wheezing or Shortness of Breath. albuterol Yes [id number] 2{puff} Inhale 2 [facility] 90 3-18 Puffs ity of mcg/actuati 00:00: every 6 [place] on inhaler 00 (six) Medical hours as Branch needed for Wheezing or Shortness of Breath. albuterol Yes [id number] 2{puff} Inhale 2 [facility] 90 3-18 Puffs ity of mcg/actuati 00:00: every 6 [place] on inhaler 00 (six) Medical hours as Branch needed for Wheezing or Shortness of Breath. albuterol Yes [id number] 2{puff} Inhale 2 [facility] 90 3-18 Puffs ity of mcg/actuati 00:00: every 6 [place] on inhaler 00 (six) Medical hours as Branch needed for Wheezing or Shortness of Breath. albuterol 2023-0 Yes [id number] 2{puff} Inhale 2 [facility] 90 3-18 Puffs ity of mcg/actuati 00:00: every 6 [place] on inhaler 00 (six) Medical hours as Branch needed for Wheezing or Shortness of Breath. albuterol No [id number] 2{puff} Inhale 2 [facility] 90 3-18 05-03 Puffs ity of mcg/actuati 00:00: 00:00 every 6 [place] on inhaler 00 :00 (six) Medical hours as Branch needed for Wheezing or Shortness of Breath. tiotropium 2022- No [id number] 18ug Inhale 1 Univers 18 mcg 3-18 04-18 capsule in ity of inhalation 00:00: 04:59 the [place] 00 :00 morning Medical for 30 Branch days. tiotropium 2022- No [id number] 18ug Inhale 1 Univers 18 mcg 3-18 04-18 capsule in ity of inhalation 00:00: 04:59 the [place] 00 :00 morning Medical for 30 Branch days. tiotropium No [id number] 18ug Inhale 1 [facility] 18 mcg 3-18 04-18 capsule in ity of inhalation 00:00: 04:59 the [place] 00 :00 morning Medical for 30 Branch days. tiotropium 2022- No [id number] 18ug Inhale 1 [facility] 18 mcg 3-18 04-18 capsule in ity of inhalation 00:00: 04:59 the [place] 00 :00 morning Medical for 30 Branch days. tiotropium 2022- No [id number] 18ug Inhale 1 [facility] 18 mcg 3-18 04-18 capsule in ity of inhalation 00:00: 04:59 the [place] 00 :00 morning Medical for 30 Branch days. tiotropium 2022-0 2022- No [id number] 18ug Inhale 1 Univers 18 mcg 3-18 04-18 capsule in ity of inhalation 00:00: 04:59 the [place] 00 :00 morning Medical for 30 Branch days. tiotropium 2022- No [id number] 18ug Inhale 1 [facility] 18 mcg 3-18 04-18 capsule in ity of inhalation 00:00: 04:59 the [place] 00 :00 morning Medical for 30 Branch days. tiotropium 2022- No [id number] 18ug Inhale 1 [facility] 18 mcg 3-18 04-18 capsule in ity of inhalation 00:00: 04:59 the [place] 00 :00 morning Medical for 30 Branch days. doxycycline 2022- No [id number] 100mg Take 1 Univers hyclate 100 3-18 03-24 capsule by i ty of mg capsule 00:00: 04:59 mouth [place] 00 :00 every 12 Medical ([facility]) Branch hours for 5 days. predniSONE 2022-2022- No [id number] 40mg Take 2 Univers 20 mg 3-18 03-24 tablets by ity of tablet 00:00: 04:59 mouth in [place] 00 :00 the [facility] morning Branch for 5 days. doxycycline 2022-2022- No [id number] 100mg Take 1 Univers hyclate 100 3-18 03-24 capsule by i ty of mg capsule 00:00: 04:59 mouth [place] 00 :00 every 12 Medical ([facility]) Branch hours for 5 days. predniSONE 2022-2022- No [id number] 40mg Take 2 Univers 20 mg 3-18 03-24 tablets by ity of tablet 00:00: 04:59 mouth in [place] 00 :00 the [facility] Branch for 5 days. rivaroxaban Yes 15mg [...] 1400, Until Discontinu ed, 1 mL codeine-gua 3-0 Yes 5mL 5 mL, Unive rs ifenesin 12-02 Oral, ity of (ROBITUSSIN 16:25: Q6HPRN, [place] as AC) 10-100 07 Starting Medic al mg/5 mL on [place] Branch oral 12/02/22 at solution 5 1125, mL Until Discontinu ed, Routine, Cough levalbutero 3-0 Yes 1.25mg 1.25 mg, Univers l (XOPENEX) 16 Inhalation it y of nebulizer 13:00: , Q4H, [place] solution 00 First dose Medic al 1.25 mg on [place] Branch 12/02/22 at 0800, Until Discontinu ed, Routine ipratropium 2022-0 Yes .5mg 0.5 mg, Uni vers (ATROVENT) 12-02 Inhalation ity of 0.02 % 13:00: , Q4H, [place] nebulizer 00 First dose Medi lucho solution on [place] Branch 0.5 mg 12/02/22 at 0800, Until Discontinu ed, Routine doxycycline 2022-0 2023- No 100mg 100 mg, U nivers hyclate [...] of therapy: 5 days NaCl 0.9% 2022-0 2023- No 1000mL at 75 Univ ers (NS) [...] Discontinu ed, Routine, Indigestio n, Heartburn ondansetron Yes 4mg 4 mg, Slow Univers (ZOFRAN 12-02 IV Push, ity of (PF)) 11:30: Q6HPRN, [place] injection 4 03 Starting Medi lucho mg [...] 12-02 Oral, ity of (TYLENOL) 11:30: Q6HPRN, [place] tablet 650 03 Starting Medic al mg [...] 0.02 % 12:30: 12:38 , ONCE, 1 [place] nebulizer 00 :00 dose, On Medica l [...] at 40 mg 0530, MICHAEL Nebulizer & Yes [id number] Use as Univers Compressor 3-15 directed ity o f For Neb 00:00: [place] [facility] Branch albuterol 0 Yes [id number] 2{puff} Inhale 2 [facility] 90 3-15 Puffs ity of mcg/actuati 00:00: every 4 [place] on inhaler 00 (four) Medical hours as Branch needed for Wheezing or Shortness of Breath. Nebulizer & 0 Yes [id number] Use as Univers Compressor 3-15 directed ity o f For Neb 00:00: Medical Branch albuterol 2022-0 Yes [id number] 2{puff} Inhale 2 [facility] 90 3-15 Puffs ity of mcg/actuati 00:00: every 4 [place] on inhaler 00 (four) Medical hours as Branch needed for Wheezing or Shortness of Breath. Nebulizer & 2022-0 Yes [id number] Use as Univers Compressor 3-15 directed ity o f For Neb 00:00: Medical Branch albuterol 2022-0 Yes [id number] 2{puff} Inhale 2 [facility] 90 3-15 Puffs ity of mcg/actuati 00:00: every 4 [place] on inhaler 00 (four) Medical hours as Branch needed for Wheezing or Shortness of Breath. Nebulizer & 2022-0 Yes [id number] Use as Univers Compressor 3-15 directed ity o f For Neb 00:00: Medical Branch Nebulizer & 2022-0 Yes [id number] Use as Univers Compressor 3-15 directed ity o f For Neb 00:00: Medical Branch Nebulizer & 2022-0 Yes [id number] Use as Univers Compressor 3-15 directed ity o f For Neb 00:00: Medical Branch Nebulizer & 2022-0 Yes [id number] Use as Univers Compressor 3-15 directed ity o f For Neb 00:00: Medical Branch Nebulizer & 2022-0 Yes [id number] Use as Univers Compressor 3-15 directed ity o f For Neb 00:00: Medical Branch Nebulizer & 2022-0 Yes [id number] Use as Univers Compressor 3-15 directed ity o f For Neb 00:00: Medical Branch Nebulizer & 2022-0 Yes [id number] Use as Univers Compressor 3-15 directed ity o f For Neb 00:00: Medical Branch Nebulizer & 2022-0 Yes [id number] Use as Univers Compressor 3-15 directed ity o f For Neb 00:00: Medical Branch Nebulizer & 2022-0 Yes [id number] Use as Univers Compressor 3-15 directed ity o f For Neb 00:00: Medical Branch Nebulizer & 2022-0 Yes [id number] Use as Univers Compressor 3-15 directed ity o f For Neb 00:00: Medical Branch Nebulizer & 2022-0 Yes [id number] Use as Univers Compressor 3-15 directed ity o f For Neb 00:00: [place] [facility] Nebulizer & 3-0 Yes [id number] Use as Univers Compressor 3-15 directed ity o f For Neb 00:00: Medical Branch Nebulizer & 3-0 Yes [id number] Use as Univers Compressor 3-15 directed ity o f For Neb 00:00: Medical Branch Nebulizer & 3-0 Yes [id number] Use as Univers Compressor 3-15 directed ity o f For Neb 00:00: Medical Branch Nebulizer & 3-0 Yes [id number] Use as Univers Compressor 3-15 directed ity o f For Neb 00:00: Medical Branch Nebulizer & 2022-0 Yes [id number] Use as Univers Compressor 3-15 directed ity o f For Neb 00:00: Medical Branch Nebulizer & 2022-0 Yes [id number] Use as Univers Compressor 3-15 directed ity o f For Neb 00:00: Medical Branch Nebulizer & 2022-0 Yes [id number] Use as Univers Compressor 3-15 directed ity o f For Neb 00:00: Medical Branch Nebulizer & 2022-0 Yes [id number] Use as Univers Compressor 3-15 directed ity o f For Neb 00:00: Medical Branch Nebulizer & 2022-0 Yes [id number] Use as Univers Compressor 3-15 directed ity o f For Neb 00:00: Medical Branch Nebulizer & 2022-0 Yes [id number] Use as Univers Compressor 3-15 directed ity o f For Neb 00:00: Medical Branch Nebulizer & 3-0 Yes [id number] Use as Univers Compressor 3-15 directed ity o f For Neb 00:00: [place] [facility] Nebulizer & 2022-0 Yes [id number] Use as Univers Compressor 3-15 directed ity o f For Neb 00:00: [place] [facility] Branch Nebulizer & 3-0 Yes [id number] Use as Univers Compressor 3-15 directed ity o f For Neb 00:00: [place] [facility] Branch Nebulizer & 2023-0 Yes [id number] Use as Univers Compressor 3-15 directed ity o f For Neb 00:00: Medical Branch Nebulizer & 2022-0 Yes [id number] Use as Univers Compressor 3-15 directed ity o f For Neb 00:00: Medical Branch Nebulizer & 2022-0 Yes [id number] Use as Univers Compressor 3-15 directed ity o f For Neb 00:00: Medical Branch Nebulizer & 2022-0 Yes [id number] Use as Univers Compressor 3-15 directed ity o f For Neb 00:00: Medical Branch Nebulizer & 2022-0 Yes [id number] Use as Univers Compressor 3-15 directed ity o f For Neb 00:00: Medical Branch Nebulizer & 2022-0 Yes [id number] Use as Univers Compressor 3-15 directed ity o f For Neb 00:00: Medical Branch Nebulizer & 2022-0 Yes [id number] Use as Univers Compressor 3-15 directed ity o f For Neb 00:00: Medical Branch Nebulizer & 2022-0 Yes [id number] Use as Univers Compressor 3-15 directed ity o f For Neb 00:00: Medical Branch Nebulizer & 2022-0 Yes [id number] Use as Univers Compressor 3-15 directed ity o f For Neb 00:00: Medical Branch Nebulizer & 2022-0 Yes [id number] Use as Univers Compressor 3-15 directed ity o f For Neb 00:00: Medical Branch Nebulizer & 2022-0 Yes [id number] Use as Univers Compressor 3-15 directed ity o f For Neb 00:00: Medical Branch Nebulizer & 2022-0 Yes [id number] Use as Univers Compressor 3-15 directed ity o f For Neb 00:00: Medical Branch Nebulizer & 2022-0 Yes [id number] Use as Univers Compressor 3-15 directed ity o f For Neb 00:00: Medical Branch Nebulizer & 2022-0 Yes [id number] Use as Univers Compressor 3-15 directed ity o f For Neb 00:00: Medical Branch albuterol 2023-0 Yes [id number] 2{puff} Inhale 2 [facility] 90 3-15 Puffs ity of mcg/actuati 00:00: every 4 [place] on inhaler 00 (four) Medical hours as Branch needed for Wheezing or Shortness of Breath. predniSONE Yes [id number] 50mg Take 1 Univers 50 mg 3-15 tablet by ity of tablet 00:00: mouth in [place] 00 the Medical morning. Branch Nebulizer & Yes [id number] Use as Univers Compressor 3-15 directed ity o f For Neb 00:00: [place] [facility] 00 Medical Branch albuterol Yes [id number] 2{puff} Inhale 2 Univers 90 3-15 Puffs ity of mcg/actuati 00:00: every 4 [place] on inhaler 00 (four) Medical hours as Branch needed for Wheezing or Shortness of Breath. albuterol 2022- No [id number] 2{puff} Inhale 2 [facility] 90 3-15 03-26 Puffs ity of mcg/actuati 00:00: 00:00 every 4 [place] on inhaler 00 :00 (four) Medical hours as Branch needed for Wheezing or Shortness of Breath. predniSONE 2022-2022- No [id number] 50mg Take 1 Univers 50 mg 3-15 03-18 tablet by ity of tablet 00:00: 00:00 mouth in [place] 00 :00 the Medical morning. Branch omeprazole 2022-2022- No 40mg Take 40 mg Univers 40 mg 11-28-12 by mouth ity of capsule 14:11: 00:00 daily. [place] 21 :00 Medical Branch carvediloL 2022- No 25mg Take 25 mg Univers 25 mg 11-28-12 by mouth 2 ity of tablet 14:11: 00:00 (two) [place] 21 :00 times Medical daily with Branch meals. busPIRone 2022-2022- No 30mg Take 30 mg U nivers 30 mg -08 21-12 by mouth 2 ity of tablet 14:11: 00:00 (two) [place] 21 :00 times Medical daily. Branch benazepriL 2022-2022- No 10mg Take 10 mg Univers 10 mg 11-28-12 by mouth ity of tablet 14:11: 00:00 daily. [place] 21 :00 Medical Branch hydroCHLORO 2022-0 2023- No 25mg Take 25 mg Univers thiazide 25 11-2812 by mouth ity of mg tablet 14:11: 00:00 daily. [place] 21 :00 [facility] Branch levalbutero 2022-0 Yes .63mg 0.63 mg, U nivers l (XOPENEX) 3-12 Inhalation it y of nebulizer 13:00: , TID, [place] solution 00 First dose Medic al 0.63 mg (after Branch last modificati on) on 11/28/22 at 0800, Until Discontinu ed, Routine ipratropium 2022-0 Yes .5mg 0.5 mg, Uni vers (ATROVENT) 3 Inhalation ity of 0.02 % 20:00: , TID, [place] nebulizer 00 First dose Medi lucho solution (after Branch 0.5 mg last modificati on) on [facility] 11/27/22 at 1400, Until Discontinu ed, Routine nicotine 0 Yes 1{patch 1 Patch, Un igor (NICODERM) 11-27 } Topical, ity o f 21 mg/24 hr 17:30: Administer [place] patch 1 00 over 24 Medical Patch Hours, Branch Q24H, First dose on [facility] 11/27/22 at 1130, Until Discontinu ed, Routine busPIRone 2022-0 Yes 10mg 10 mg, Univer s (BUSPAR) 3-11 Oral, TID, ity o f tablet 10 16:15: First dose [place] mg 00 on [facility] Medical 11/27/22 at Branch 1015, Until Discontinu ed, Routine aspirin 2022-0 Yes 81mg 81 mg, Univers chewable 11-27 Oral, ity of tablet 81 16:15: DAILY, [place] mg 00 First dose Medical on [facility] Branch 11/27/22 at 1015, Until Discontinu ed, Routine foLIC acid 2022-0 Yes 1mg 1 mg, Univer s (FOLATE) 3-11 Oral, ity of tablet 1 mg 15:00: DAILY, [place] 00 First dose Medical on Sat Branch 11/27/22 at 0900, Until Discontinu ed, Routine rivaroxaban 2022-0 Yes 20mg 20 mg, Univ ers (XARELTO) 3-11 Oral, ity of tablet 20 15:00: DAILY, [place] mg 00 First dose Medical on [facility] Branch 11/27/22 at 0900, Until Discontinu ed, Routine omeprazole 0 Yes 40mg 40 mg, Unive rs (PRILOSEC) 11-27 Oral, ity of capsule 40 15:00: DAILY, [place] mg 00 First dose Medical on [facility] Branch 11/27/22 at 0900, Until Discontinu ed predniSONE 202- No 40mg 40 mg, Univ ers (DELTASONE) 11-2716 Oral, ity of tablet 40 15:00: 13:59 DAILY, 5 [place] as mg 00 :00 doses, Medical First dose Branch on [facility] 11/27/22 at 0900, Last dose on Tue12/01/22 at 0900, Routine carvediloL 0 Yes 25mg 25 mg, Unive rs (COREG) 11-27 Oral, BID ity of tablet 25 14:00: MEALS, [place] mg 00 First dose Medical on [facility] 11/27/22 at 0800, Until Discontinu ed, Routine levalbutero 0 2022- No .31mg 0.31 mg, Univers l (XOPENEX) 11-2712 Inhalation i ty of nebulizer 14:00: 12:33 , TID, [place] solution 00 :58 First dose Medic al 0.31 mg on [facility] Branch 11/27/22 at 0800, Until Discontinu ed, Routine ipratropium 2022- No .5mg 0.5 mg, [place] [facility] (ATROVENT) 11-27 Inhalation it y of 0.02 % 14:00: 18:48 , QID, [place] nebulizer 00 :56 First dose Medi lucho solution on [facility] Branch 0.5 mg 11/27/22 at 0800, Until Discontinu ed, Routine thiamine 0 Yes 100mg 100 mg, Unive rs (VITAMIN 11-27 Oral, ity of B1) tablet 08:30: DAILY, [place] 100 mg 00 First dose Medical (after Branch last modificati on) on [facility] 11/27/22 at 0230, Until Discontinu ed, Routine LORazepam 0 Yes 1mg 1 mg, Slow [facility] (ATIVAN) 11-27 IV Push, ity of injection 1 08:16: Q4HPRN, [place] mg 19 Starting Medical on Tue Branch 11/27/22 at 0216, Until Discontinu ed, [...] 00 :00 dose, On Medica l solution Tue11/19/22 Branc h 0.5 mg at 0330, Routine levalbutero 2022-2022- No 1.25mg 1.25 mg, Univers l (XOPENEX) 11-19 Inhalation i ty of nebulizer 02:00: 01:21 , ONCE, 1 [place] solution 00 :00 dose, On Medical 1.25 mg [facility] 11/18/22 Branch at 2000, Routine thiamine 3-0 2022- No [id number] 100mg Take 1 Univers 100 mg 2-24 03-27 tablet by ity of tablet 00:00: 04:59 mouth in [place] 00 :00 [facility] for 30 days. thiamine 2022-0 202- No [id number] 100mg Take 1 Univers 100 mg 2-24 -27 tablet by ity of tablet 00:00: 04:59 mouth in [place] 00 :00 [facility] for 30 days. thiamine 2023-0 2023- No [id number] 100mg Take 1 Univers 100 mg 2-24 03-27 tablet by ity of tablet 00:00: 04:59 mouth in [place] 00 :00 [facility] for 30 days. thiamine 2023-0 2023- No [id number] 100mg Take 1 Univers 100 mg 2-24 -27 tablet by ity of tablet 00:00: 04:59 mouth in [place] 00 :00 [facility] for 30 days. thiamine 2023-0 2023- No [id number] 100mg Take 1 Univers 100 mg 2-24 03-27 tablet by ity of tablet 00:00: 04:59 mouth in [place] 00 :00 the Medical [facility] Branch for 30 days. thiamine 2023-0 2022- No [id number] 100mg Take 1 Univers 100 mg 2-24 03-12 tablet by ity of tablet 00:00: 00:00 mouth in [place] 00 :00 the [facility] for 30 days. thiamine 3-0 Yes 100mg 100 mg, Unive rs (VITAMIN 2-23 Oral, ity of B1) tablet 15:00: DAILY, [place] 100 mg 00 First dose Medical on [facility] Branch 11/11/22 at 0900, Until Discontinu ed, Routine omeprazole 2022-0 Yes 40mg Take 40 mg U nivers 40 mg 2-23 by mouth ity of capsule 13:41: daily. [address] carvediloL 2022-0 Yes 25mg Take 25 mg U nivers 25 mg 2-23 by mouth 2 ity of tablet 13:41: (two) [place] [address] times Medical daily with Branch meals. busPIRone 3-0 Yes 30mg Take 30 mg [facility] 30 mg 2-23 by mouth 2 ity of tablet 13:41: (two) [place] [address] times Medical daily. Branch benazepriL 2022-0 Yes 10mg Take 10 mg U nivers 10 mg 2-23 by mouth ity of tablet 13:41: daily. [address] hydroCHLORO 3-0 Yes 25mg Take 25 mg Univers thiazide 25 2-23 by mouth ity of mg tablet 13:41: daily. [address] omeprazole 3-0 Yes 40mg Take 40 mg U nivers 40 mg 2-23 by mouth ity of capsule 13:41: daily. [address] carvediloL 3-0 Yes 25mg Take 25 mg U nivers 25 mg 2-23 by mouth 2 ity of tablet 13:41: (two) [place] [address] times Medical daily with Branch meals. busPIRone 2023-0 Yes 30mg Take 30 mg [facility] 30 mg 2-23 by mouth 2 ity of tablet 13:41: (two) [place] [address] times Medical daily. Branch benazepriL 3-0 Yes 10mg Take 10 mg U nivers 10 mg 2-23 by mouth ity of tablet 13:41: daily. [address] hydroCHLORO 2023-0 Yes 25mg Take 25 mg Univers thiazide 25 2-23 by mouth ity of mg tablet 13:41: daily. [address] omeprazole 2023-0 Yes 40mg Take 40 mg U nivers 40 mg 2-23 by mouth ity of capsule 13:41: daily. [address] carvediloL 3-0 Yes 25mg Take 25 mg U nivers 25 mg 2-23 by mouth 2 ity of tablet 13:41: (two) [place] [address] times Medical daily with Branch meals. busPIRone 2023-0 Yes 30mg Take 30 mg [place] 30 mg 2-23 by mouth 2 ity of tablet 13:41: (two) [place] [address] times Medical daily. Branch benazepriL 3-0 Yes 10mg Take 10 mg U nivers 10 mg 2-23 by mouth ity of tablet 13:41: daily. [address] hydroCHLORO 3-0 Yes 25mg Take 25 mg Univers thiazide 25 2-23 by mouth ity of mg tablet 13:41: daily. [address] omeprazole 3-0 Yes 40mg Take 40 mg U nivers 40 mg 2-23 by mouth ity of capsule 13:41: daily. [address] carvediloL 3-0 Yes 25mg Take 25 mg U nivers 25 mg 2-23 by mouth 2 ity of tablet 13:41: (two) [address] Medical daily with Branch meals. busPIRone 3-0 Yes 30mg Take 30 mg [facility] 30 mg 2-23 by mouth 2 ity of tablet 13:41: (two) [place] [address] times Medical daily. Branch benazepriL 3-0 Yes 10mg Take 10 mg U nivers 10 mg 2-23 by mouth ity of tablet 13:41: daily. [address] hydroCHLORO 2023-0 Yes 25mg Take 25 mg Univers thiazide 25 2-23 by mouth ity of mg tablet 13:41: daily. [address] omeprazole 2023-0 Yes 40mg Take 40 mg U nivers 40 mg 2-23 by mouth ity of capsule 13:41: daily. [address] carvediloL 2023-0 Yes 25mg Take 25 mg U nivers 25 mg 2-23 by mouth 2 ity of tablet 13:41: (two) [place] [address] times Medical daily with Branch meals. busPIRone 0 Yes 30mg Take 30 mg [place] 30 mg 2-23 by mouth 2 ity of tablet 13:41: (two) [place] [address] times Medical daily. Branch benazepriL 0 Yes 10mg Take 10 mg U nivers 10 mg 2-23 by mouth ity of tablet 13:41: daily. [address] Branch hydroCHLORO 0 Yes 25mg Take 25 mg Univers thiazide 25 2-23 by mouth ity of mg tablet 13:41: daily. [address] foLIC acid 2022- No 1mg 1 mg, Unive rs (FOLATE) 2-11-11 Oral, ity of tablet 1 mg 00:15: 00:26 ONCE, 1 [place] 00 :00 dose, On Medical Wed Branch 11/10/22 at 1815, Routine benzocaine- 0 Yes [id number] 1{lozen Take 1 Univers menthoL 2-23 ge} Lozenge by ity of lozenge 00:00: mouth [place] 00 every 4 Medical (four) Branch hours as needed for Sore throat. budesonide- 0 Yes [id number] 2{puff} Inhale 2 Univers formoteroL 2-23 Puffs in ity o f 80-4.5 00:00: the [place] mcg/actuati 00 morning Medic al on inhaler and 2 Branch Puffs in the evening. benzocaine- 2022-0 Yes [id number] 1{lozen Take 1 Univers menthoL 2-23 ge} Lozenge by ity of lozenge 00:00: mouth [place] 00 every 4 Medical (four) Branch hours as needed for Sore throat. budesonide- 2022-0 Yes [id number] 2{puff} Inhale 2 Univers formoteroL 2-23 Puffs in ity o f 80-4.5 00:00: the [place] mcg/actuati 00 morning Medic al on inhaler and 2 Branch Puffs in the evening. benzocaine- 2022-0 Yes [id number] 1{lozen Take 1 Univers menthoL 2-23 ge} Lozenge by ity of lozenge 00:00: mouth [place] 00 every 4 Medical (four) Branch hours as needed for Sore throat. budesonide- Yes [id number] 2{puff} Inhale 2 Univers formoteroL 2-23 Puffs in ity o f 80-4.5 00:00: the [place] mcg/actuati 00 morning Medic al on inhaler and 2 Branch Puffs in the evening. benzocaine- 0 Yes [id number] 1{lozen Take 1 Univers menthoL 2-23 ge} Lozenge by ity of lozenge 00:00: mouth [place] 00 every 4 Medical (four) Branch hours as needed for Sore throat. budesonide- Yes [id number] 2{puff} Inhale 2 Univers formoteroL 2-23 Puffs in ity o f 80-4.5 00:00: the [place] mcg/actuati 00 morning Medic al on inhaler and 2 Branch Puffs in the evening. benzocaine- Yes [id number] 1{lozen Take 1 Univers menthoL 2-23 ge} Lozenge by ity of lozenge 00:00: mouth [place] 00 every 4 Medical (four) Branch hours as needed for Sore throat. budesonide- Yes [id number] 2{puff} Inhale 2 Univers formoteroL 2-23 Puffs in ity o f 80-4.5 00:00: the [place] mcg/actuati 00 morning Medic al on inhaler and 2 Branch Puffs in the evening. benzocaine- 2022- No [id number] 1{lozen Take 1 Univers menthoL 2-23 03-12 ge} Lozenge by ity o f lozenge 00:00: 00:00 mouth [place] 00 :00 every 4 Medical (four) Branch hours as needed for Sore throat. budesonide- 0 2022- No [id number] 2{puff} Inhale 2 Univers formoteroL 2-23 03-12 Puffs in ity of 80-4.5 00:00: 00:00 the [place] mcg/actuati 00 :00 morning Medic al on inhaler and 2 Branch Puffs in the evening. sodium 2022-0 2022- No [id number] 1g Take 1 Uni vers chloride 1 11-11 03-06 tablet by ity of gram tablet 00:00: 05:59 mouth in [place] 00 :00 the Medical morning Branch and 1 tablet at noon and 1 tablet in the evening. Take with meals. Do all this for 10 days. sodium 2022-0 2022- No [id number] 1g Take 1 Uni vers chloride 1 11-11-06 tablet by ity of gram tablet 00:00: 05:59 mouth in [place] 00 :00 the [facility] morning Branch and 1 tablet at noon and 1 tablet in the evening. Take with meals. Do all this for 10 days. sodium 3-0 2022- No [id number] 1g Take 1 Uni vers chloride 1 11-11 03-06 tablet by ity of gram tablet 00:00: 05:59 mouth in [place] 00 :00 the [facility] morning Branch and 1 tablet at noon and 1 tablet in the evening. Take with meals. Do all this for 10 days. sodium 2022-0 2022- No [id number] 1g Take 1 Uni vers chloride 1 11-11-06 tablet by ity of gram tablet 00:00: 05:59 mouth in [place] 00 :00 the [facility] morning Branch and 1 tablet at noon and 1 tablet in the evening. Take with meals. Do all this for 10 days. levoFLOXaci 2022-0 2022- No [id number] 750mg Take 1 Univers n 750 mg 11-11- tablet by ity o f tablet 00:00: 05:59 mouth [place] 00 :00 every 24 Medical ([facility]) hours for 5 days. levoFLOXaci 2022-0 2022- No [id number] 750mg Take 1 Univers n 750 mg 11-11 03- tablet by ity o f tablet 00:00: 05:59 mouth [place] 00 :00 every 24 Medical ([facility]) hours for 5 days. predniSONE 2023-0 2022- No [id number] 40mg Take 2 Univers 20 mg 2-23 02-27 tablets by ity of tablet 00:00: 05:59 mouth in [place] 00 :00 the [facility] for 3 days. predniSONE 2023-0 2022- No [id number] 40mg Take 2 Univers 20 mg 2-23 02-27 tablets by ity of tablet 00:00: 05:59 mouth in [place] 00 :00 the Medical [...] ge} Oral, ity of (CEPACOL 20:49: Q4HPRN, [place] SORE THROAT 25 Starting Medi lucho (JACINTO-MEN)) [...] Yes 40mg 40 mg, Unive rs (PRILOSEC) 2- Oral, ity of capsule 40 15:00: DAILY, [place] mg 00 First dose Medical on Tue Branch 11/10/22 at 0900, Until Discontinu ed rivaroxaban 2022-0 Yes 20mg 20 mg, Univ ers (XARELTO) 2-22 Oral, ity of tablet 20 15:00: DAILY, [place] mg 00 First dose Medical on Tue Branch 11/10/22 at 0900, Until Discontinu ed, Routine aspirin 2022-0 Yes 81mg 81 mg, Univers chewable - Oral, ity of tablet 81 15:00: DAILY, [place] mg 00 First dose Medical on Tue Branch 11/10/22 at 0900, Until Discontinu ed, Routine methylPREDN 2022-0 2022- No 40mg 40 mg, Uni vers ISolone sod 11-10 Intravenou i ty of succ 15:00: 14:59 s, DAILY, [place] (SOLU-MEDRO 00 :00 4 doses, Medi lucho L (PF)) First dose Branch injection on Tue 40 mg 11/10/22 at 0900, Last dose on Tue11/13/22 at 0900, 1 mL NaCl 0.9% 2022-0 [...]
D uration of therapy: 5 days busPIRone 0 Yes 30mg 30 mg, Univer s (BUSPAR) 2-22 Oral, BID, ity o f tablet 30 02:00: First dose [place] mg 00 on Tue11/09/22 at Branch 2000, Until Discontinu ed, Routine carvediloL 0 Yes 25mg 25 mg, Unive rs (COREG) 2-21 Oral, BID ity of tablet 25 23:00: MEALS, [place] mg 00 First dose Medical on Tue [place] 11/09/22 at 1700, Until Discontinu ed, Routine ipratropium 2022-0 Yes .5mg 0.5 mg, Uni vers (ATROVENT) 2-21 Inhalation ity of 0.02 % 22:00: , Q4H, [place] nebulizer 00 First dose Medi lucho solution on Tue 0.5 mg 11/09/22 at 1600, Until Discontinu ed, Routine albuterol 2022-0 Yes 2.5mg 2.5 mg, Univ ers (PROVENTIL) 2-21 Inhalation it y of 2.5 mg /3 22:00: , Q4H, [place] mL (0.083 00 First dose Medi lucho %) on [facility] Branch nebulizer 11/09/22 at solution 1600, 2.5 mg Until Discontinu ed, Routine NaCl 0.9% 2022- No 500mL at 999 Univ ers (NS) bolus 11-09 mL/hr, 500 it y of infusion 20:15: 21:30 mL, IV [place] 500 mL 00 :21 Infusion, Medical ONCE, 1 Branch dose, On [facility] 11/09/22 at 1415, STAT ondansetron Yes 4mg 4 mg, Slow Univers (ZOFRAN 11-09 IV Push, ity of (PF)) 20:04: Q6HPRN, [place] injection 4 17 Starting Medi lucho mg on [facility] 11/09/22 at 1404, Until Discontinu ed, Routine, Nausea and Vomiting (N/V) acetaminoph Yes 650mg 650 mg, Un igor en 11-09 Oral, ity of (TYLENOL) 20:04: Q6HPRN, [place] tablet 650 07 Starting Medic al mg on [facility] 11/09/22 at 1404, Until Discontinu ed, Routine, Pain (scale 1-3), Temp > 38 C albuterol 2022- No 5mg 5 mg, Univer s (PROVENTIL) 11-09 Inhalation i ty of 2.5 mg /3 14:00: 14:05 , ONCE, 1 [place] mL (0.083 00 :00 dose, On Medica l %) [facility] nebulizer 11/09/22 at solution 5 0800, STAT mg albuterol 2022- No 10mg 10 mg, Unive rs (PROVENTIL) 11-09 Inhalation i ty of 2.5 mg /3 11:00: 11:04 , ONCE, 1 [place] mL (0.083 00 :00 dose, On Medica l %) [facility] nebulizer 11/09/22 at solution 10 0500, STAT mg ipratropium 0 2022- No .5mg 0.5 mg, Un igor (ATROVENT) 11-09 Inhalation it y of 0.02 % 09:00: 08:59 , ONCE, 1 [place] nebulizer 00 :00 dose, On Medica l solution e Branch 0.5 mg 11/09/22 at 0300, MICHAEL albuterol 2022-0 2022- No 2.5mg 2.5 mg, Uni vers (PROVENTIL) 11-09 Inhalation i ty of 2.5 mg /3 09:00: 08:59 , ONCE, 1 [place] mL (0.083 00 :00 dose, On Medica l %) Tue Branch nebulizer 11/09/22 at solution 0300, STAT 2.5 mg magnesium 2022-0 2022- No 2g 2 g, IV Univ ers sulfate in 11-09 Piggyback, it y of water 2 08:30: 08:22 Administer [place] as gram/50 mL 00 :00 over 60 Medica l (4 %) Minutes, Branch infusion 2 ONCE, 1 g dose, On 11/09/22 at 0230, Routine methylPREDN 2022-2022- No 125mg 125 mg, U nivers ISolone [...] 0.5 mg 11/09/22 at 0145, MICHAEL albuterol 2022-0 2022- No 2.5mg 2.5 mg, Uni vers (PROVENTIL) 11-09 Inhalation i ty of 2.5 mg /3 07:45: 07:40 , ONCE, 1 [place] mL (0.083 00 :00 dose, On Medica l %) [facility] Branch nebulizer 11/09/22 at solution 0145, STAT 2.5 mg cephALEXin 1-0 Yes [id number] 500mg Take 1 Univers (KEFLEX) 05-22 capsule by ity o f 500 mg 00:00: mouth 4 [place] capsule 00 (four) Medical times Branch daily. cephALEXin 2020- Yes [id number] 500mg Take 1 Univers (KEFLEX) 05-22 capsule by ity o f 500 mg 00:00: mouth 4 [place] capsule 00 (four) Medical times [place] daily. cephALEXin 2022- No [id number] 500mg Take 1 Univers (KEFLEX) -11 18- capsule by ity of 500 mg 00:00: 00:00 mouth 4 [place] capsule 00 :00 (four) Medical times [place] daily. cefTRIAXone 2020- No 1000mg 1,000 mg, Univers (ROCEPHIN) 12-12- IV ity of 1,000 mg in 19:00: 18:23 Piggyback, [place] NaCl 0.9% 00 :00 ONCE, 1 Medical (NS) 50 mL dose, Fri Bran ch MINI-BAG 12/12/20 at 1400, 50 mL
Reas on for Anti-Infec tive: Empiric Therapy for Suspected Infection< br>Empiric Therapy Site: Urine
D uration of therapy: 72 hours carvediloL 2020-0 Yes 25mg Take 25 mg U nivers 25 mg 3-26 by mouth 2 ity of tablet 18:38: (two) [place] [id number] times Medical daily with Branch meals. busPIRone 2020-0 Yes 30mg Take 30 mg Un igor 30 mg 3-26 by mouth 2 ity of tablet 18:38: (two) [place] [address] times Medical daily. Branch benazepriL 2020-0 Yes 10mg Take 10 mg U nivers 10 mg 3-26 by mouth ity of tablet 18:38: daily. [address] hydroCHLORO 2020-0 Yes 25mg Take 25 mg Univers thiazide 25 3-26 by mouth ity of mg tablet 18:38: daily. [address] carvediloL 2020-0 Yes 25mg Take 25 mg U nivers 25 mg 3-26 by mouth 2 ity of tablet 18:38: (two) [place] [address] times Medical daily with Branch meals. busPIRone 2021-0 Yes 30mg Take 30 mg Un igor 30 mg 3-26 by mouth 2 ity of tablet 18:38: (two) [place] [address] times Medical daily. Branch benazepriL 2020-0 Yes 10mg Take 10 mg U nivers 10 mg 3-26 by mouth ity of tablet 18:38: daily. [address] hydroCHLORO 2021-0 Yes 25mg Take 25 mg Univers thiazide 25 3-26 by mouth ity of mg tablet 18:38: daily. [address] carvediloL 2021-0 Yes 25mg Take [...] by mouth ity of tablet 18:38: daily. [address] hydroCHLORO 2021-0 Yes 25mg Take 25 mg Univers thiazide 25 3-26 by mouth ity of mg tablet 18:38: daily. [address] carvediloL 2021-0 Yes 25mg Take 25 mg U nivers 25 mg 3-26 by mouth 2 ity of tablet 18:38: (two) [place] 04 times Medical daily with Branch meals. busPIRone 2021-0 Yes 30mg Take 30 mg Un igor 30 mg 3-26 by mouth 2 ity of tablet 18:38: (two) [place] 04 times Medical daily. Branch benazepriL 2021-0 Yes 10mg Take 10 mg U nivers 10 mg 3-26 by mouth ity of tablet 18:38: daily. [address] hydroCHLORO 2021-0 Yes 25mg Take 25 mg Univers thiazide 25 3-26 by mouth ity of mg tablet 18:38: daily. [address] carvediloL 2021-0 Yes 25mg Take 25 mg U nivers 25 mg 3-26 by mouth 2 ity of tablet 18:38: (two) [place] [address] times Medical daily with Branch meals. busPIRone 2021-0 Yes 30mg Take 30 mg Un igor 30 mg 3-26 by mouth 2 ity of tablet 18:38: (two) [place] 04 times Medical daily. Branch benazepriL 2021-0 Yes 10mg Take 10 mg U nivers 10 mg 3-26 by mouth ity of tablet 18:38: daily. [address] hydroCHLORO 2021-0 Yes 25mg Take 25 mg Univers thiazide 25 3-26 by mouth ity of mg tablet 18:38: daily. [address] carvediloL 2021-0 Yes 25mg Take [...] by mouth ity of tablet 18:38: daily. [address] hydroCHLORO 1-0 Yes 25mg Take 25 mg Univers thiazide 25 3-26 by mouth ity of mg tablet 18:38: daily. [address] carvediloL 1-0 Yes 25mg Take 25 mg U nivers 25 mg 3-26 by mouth 2 ity of tablet 18:38: (two) [place] [address] times Medical daily with Branch meals. busPIRone 2021-0 Yes 30mg Take 30 mg Un igor 30 mg 3-26 by mouth 2 ity of tablet 18:38: (two) [place] 04 times Medical daily. Branch benazepriL 2021-0 Yes 10mg Take 10 mg U nivers 10 mg 3-26 by mouth ity of tablet 18:38: daily. [address] hydroCHLORO 1-0 Yes 25mg Take 25 mg Univers thiazide 25 3-26 by mouth ity of mg tablet 18:38: daily. [address] carvediloL 2021-0 Yes 25mg Take 25 mg U nivers 25 mg 3-26 by mouth 2 ity of tablet 18:38: (two) [place] [address] times Medical daily with Branch meals. busPIRone 2021-0 Yes 30mg Take 30 mg Un igro 30 mg 3-26 by mouth 2 ity of tablet 18:38: (two) [place] 04 times Medical daily. Branch benazepriL 2021-0 Yes 10mg Take 10 mg U nivers 10 mg 3-26 by mouth ity of tablet 18:38: daily. [address] hydroCHLORO 2021-0 Yes 25mg Take 25 mg Univers thiazide 25 3-26 by mouth ity of mg tablet 18:38: daily. [address] carvediloL 2021-0 Yes 25mg Take [...] by mouth ity of tablet 18:38: daily. [address] hydroCHLORO 1-0 Yes 25mg Take 25 mg Univers thiazide 25 3-26 by mouth ity of mg tablet 18:38: daily. [address] carvediloL 1-0 Yes 25mg Take 25 mg U nivers 25 mg 3-26 by mouth 2 ity of tablet 18:38: (two) [place] [address] times Medical daily with Branch meals. busPIRone 2021-0 Yes 30mg Take 30 mg Un igor 30 mg 3-26 by mouth 2 ity of tablet 18:38: (two) [place] 04 times Medical daily. Branch benazepriL 1-0 Yes 10mg Take 10 mg U nivers 10 mg 3-26 by mouth ity of tablet 18:38: daily. [address] hydroCHLORO 1-0 Yes 25mg Take 25 mg Univers thiazide 25 3-26 by mouth ity of mg tablet 18:38: daily. [address] carvediloL 2021-0 Yes 25mg Take 25 mg U nivers 25 mg 3-26 by mouth 2 ity of tablet 18:38: (two) [place] [address] times Medical daily with Branch meals. busPIRone 2021-0 Yes 30mg Take 30 mg Un igor 30 mg 3-26 by mouth 2 ity of tablet 18:38: (two) [place] 04 times Medical daily. Branch benazepriL 2021-0 Yes 10mg Take 10 mg U nivers 10 mg 3-26 by mouth ity of tablet 18:38: daily. [address] hydroCHLORO 2021-0 Yes 25mg Take 25 mg Univers thiazide 25 3-26 by mouth ity of mg tablet 18:38: daily. [address] carvediloL 2021-0 Yes 25mg Take [...] by mouth ity of tablet 18:38: daily. [address] hydroCHLORO 1-0 Yes 25mg Take 25 mg Univers thiazide 25 3-26 by mouth ity of mg tablet 18:38: daily. [address] carvediloL 2021-0 Yes 25mg Take 25 mg U nivers 25 mg 3-26 by mouth 2 ity of tablet 18:38: (two) [place] [address] times Medical daily with Branch meals. busPIRone 2021-0 Yes 30mg Take 30 mg Un igor 30 mg 3-26 by mouth 2 ity of tablet 18:38: (two) [place] 04 times Medical daily. Branch benazepriL 1-0 Yes 10mg Take 10 mg U nivers 10 mg 3-26 by mouth ity of tablet 18:38: daily. [address] hydroCHLORO 1-0 Yes 25mg Take 25 mg Univers thiazide 25 3-26 by mouth ity of mg tablet 18:38: daily. [address] carvediloL 2021-0 Yes 25mg Take 25 mg U nivers 25 mg 3-26 by mouth 2 ity of tablet 18:38: (two) [place] [address] times Medical daily with Branch meals. busPIRone 2021-0 Yes 30mg Take 30 mg Un igor 30 mg 3-26 by mouth 2 ity of tablet 18:38: (two) [place] 04 times Medical daily. Branch benazepriL 2021-0 Yes 10mg Take 10 mg U nivers 10 mg 3-26 by mouth ity of tablet 18:38: daily. [address] hydroCHLORO 2021-0 Yes 25mg Take 25 mg Univers thiazide 25 3-26 by mouth ity of mg tablet 18:38: daily. [address] carvediloL Yes 25mg Take 25 mg U nivers 25 mg - by mouth 2 ity of tablet 18:38: (two) [address] daily with Branch meals. busPIRone Yes 30mg Take 30 mg Un igor 30 mg - by mouth 2 ity of tablet 18:38: (two) [place] [address] times [facility] daily. Branch benazepriL Yes 10mg Take 10 mg U nivers 10 mg - by mouth ity of tablet 18:38: daily. [address] hydroCHLORO Yes 25mg Take 25 mg Univers thiazide 25 - by mouth ity of mg tablet 18:38: daily. [address] iohexol 2020- No [id number] 120mL 120 mL, Univers (OMNIPAQUE 12-12 Intravenou it y of 350 17:30: 17:21 s, ONCE, 1 [place] BULK-150 00 :00 dose, Fri Medica l mL) 12/12/20 at [place] injection 1230, 120 mL Routine aspirin 81 2020- No 81mg Take 81 mg Univers mg EC 12-12 by mouth ity of tablet 16:57: 00:00 daily. [place] 40 :00 [facility] Branch varenicline 2020- No 1mg Take 1 mg Univers (CHANTIX) 1 12-12 by mouth 2 i ty of mg tablet 16:57: 00:00 (two) [place] 18 :00 times [facility] daily. Branch predniSONE 2020- No 20mg Take 20 mg Univers 20 mg 12-12 by mouth ity of tablet 16:57: 00:00 daily. [place] 12 :00 [facility] Branch fluticasone 2020- No 1{puff} Inhale 1 Univers -umeclidin- 12-12 Puff ity of vilanter 16:56: 00:00 daily. [place] (TRELEGY 46 :00 Medical ELLIPTA) [place] 100-62.5-25 mcg DsDv cefpodoxime Yes [id number] 100mg Take 1 Univers 100 mg 12-12 tablet by ity of tablet 00:00: mouth 2 [place] 00 (two) Medical times Branch daily. cefpodoxime 2021-0 Yes [id number] 100mg Take 1 Univers 100 mg 3-26 tablet by ity of tablet 00:00: mouth [place] (two) Medical times Branch daily. cefpodoxime 2021-0 Yes [id number] 100mg Take 1 Univers 100 mg 3-26 tablet by ity of tablet 00:00: mouth (two) Medical times Branch daily. cefpodoxime 2021-0 Yes [id number] 100mg Take 1 Univers 100 mg 3-26 tablet by ity of tablet 00:00: mouth [place] (two) Medical times Branch daily. cefpodoxime 2021-0 Yes [id number] 100mg Take 1 Univers 100 mg 3-26 tablet by ity of tablet 00:00: mouth [place] (two) Medical times Branch daily. cefpodoxime 2021-0 Yes [id number] 100mg Take 1 Univers 100 mg 3-26 tablet by ity of tablet 00:00: mouth [place] (two) Medical times Branch daily. cefpodoxime 2021-0 Yes [id number] 100mg Take 1 Univers 100 mg 3-26 tablet by ity of tablet 00:00: mouth [place] (two) Medical times Branch daily. cefpodoxime 2021-0 Yes [id number] 100mg Take 1 Univers 100 mg 3-26 tablet by ity of tablet 00:00: mouth [place] (two) Medical times Branch daily. cefpodoxime 2021-0 Yes [id number] 100mg Take 1 Univers 100 mg 3-26 tablet by ity of tablet 00:00: mouth [place] (two) Medical times Branch daily. cefpodoxime 2021-0 Yes [id number] 100mg Take 1 Univers 100 mg 3-26 tablet by ity of tablet 00:00: mouth [place] (two) Medical times Branch daily. cefpodoxime 2021-0 Yes [id number] 100mg Take 1 Univers 100 mg 3-26 tablet by ity of tablet 00:00: mouth [place] (two) Medical times Branch daily. cefpodoxime 2021-0 Yes [id number] 100mg Take 1 Univers 100 mg 3-26 tablet by ity of tablet 00:00: mouth [place] (two) Medical times Branch daily. cefpodoxime 2021-0 Yes [id number] 100mg Take 1 Univers 100 mg 3-26 tablet by ity of tablet 00:00: mouth 2 [place] 00 (two) Medical times Branch daily. cefpodoxime 2020-0 Yes [id number] 100mg Take 1 Univers 100 mg 3-26 tablet by ity of tablet 00:00: mouth 2 [place] 00 ([facility]) Medical times Branch daily. cefpodoxime 2020-0 Yes [id number] 100mg Take 1 Univers 100 mg 3-26 tablet by ity of tablet 00:00: mouth 2 [place] 00 (two) Medical times Branch daily. cefpodoxime 2020-0 3- No [id number] 100mg Take 1 Univers 100 mg 3-26 - tablet by ity of tablet 00:00: 00:00 mouth 2 [place] 00 :00 ([facility]) Medical times Branch daily. cefpodoxime 2020-0 2021- No [id number] 100mg Take 1 Univers 100 mg 3-26 - tablet by ity of tablet 00:00: 00:00 mouth 2 [place] 00 :00 ([facility]) Medical times [place] daily for 7 days. XARELTO 15 2020-0 Yes Univers mg tablet 1-28 ity of 00:00: [place] Medical Branch XARELTO 15 2020-0 Yes Univers mg tablet 1-28 ity of 00:00: [place] [facility] Branch XARELTO 15 2020-0 Yes Univers mg tablet -28 ity of 00:00: [place] [facility] XARELTO 15 2020-0 Yes Univers mg tablet -28 ity of 00:00: [place] [facility] XARELTO 15 2020-0 Yes Univers mg tablet -28 ity of 00:00: [place] [facility] XARELTO 15 2020-0 Yes Univers mg tablet -28 ity of 00:00: [place] [facility] XARELTO 15 2020-0 Yes Univers mg tablet 1-28 ity of 00:00: [place] [facility] XARELTO 15 2020-0 Yes Univers mg tablet 1-28 ity of 00:00: [place] [facility] XARELTO 15 2020-0 Yes Univers mg tablet 1-28 ity of 00:00: [place] [facility] XARELTO 15 2020-0 Yes Univers mg tablet 1-28 ity of 00:00: [place] [facility] XARELTO 15 2020-0 Yes Univers mg tablet 10-16 ity of 00:00: [place] [facility] Branch XARELTO 15 2020-0 Yes Univers mg tablet 10-16 ity of 00:00: [place] [facility] XARELTO 15 2020-0 Yes Univers mg tablet 10-16 ity of 00:00: [place] [facility] XARELTO 15 2020-0 Yes Univers mg tablet 10-16 ity of 00:00: [place] [facility] XARELTO 15 2020-0 Yes Univers mg tablet 10-16 ity of 00:00: [place] [address] Medical Branch XARELTO 15 2020-0 Yes Univers mg tablet 10-16 ity of 00:00: [place] [address] Medical Branch XARELTO 15 2020-0 Yes Univers mg tablet 10-16 ity of 00:00: [place] [address] Medical Branch XARELTO 15 2020-0 Yes Univers mg tablet 10-16 ity of 00:00: [place] [address] Medical Branch XARELTO 15 2020-0 Yes Univers mg tablet 10-16 ity of 00:00: [place] [address] Medical Branch XARELTO 15 2020-0 Yes Univers mg tablet 10-16 ity of 00:00: [place] [address] Medical Branch XARELTO 15 2020-0 Yes Univers mg tablet 10-16 ity of 00:00: [place] [address] Medical Branch XARELTO 15 2020-0 Yes Univers mg tablet 10-16 ity of 00:00: [address] Branch XARELTO 15 2020-0 Yes Univers mg tablet 10-16 ity of 00:00: [address] Branch XARELTO 15 2020-0 3- No Univer s mg tablet 10-16-12 ity of 00:00: 00:00 [place] 00 :00 [facility] Branch omeprazole 2018- Yes 40mg Take 40 mg U nivers 40 mg 2-10 by mouth ity of capsule 00:11: daily. [address] omeprazole 2018-09 Yes 40mg Take 40 mg U nivers 40 mg 2-10 by mouth ity of capsule 00:11: daily. [address] varenicline 2018-09 Yes 1mg Take 1 mg U nivers (CHANTIX) 1 2-10 by mouth 2 it y of mg tablet 00:11: (two) [address] daily[address] Branch predniSONE 2018-09 Yes 20mg Take 20 mg U nivers 20 mg 2-10 by mouth ity of tablet 00:11: daily. [address] omeprazole 2018-09 Yes 40mg Take 40 mg U nivers 40 mg 2-10 by mouth ity of capsule 00:11: daily. [address] fluticasone 2018-09 Yes 1{puff} Inhale 1 Univers -umeclidin- 2-10 Puff ity of vilanter 00:11: daily. [address]) Branch 100-62.5-25 mcg DsDv aspirin 81 2018-09 Yes 81mg Take 81 mg U nivers mg EC 2-10 by mouth ity of tablet 00:11: daily. [address] varenicline 2018-09 Yes 1mg Take 1 mg U nivers (CHANTIX) 1 2-10 by mouth 2 it y of mg tablet 00:11: (two) [address] daily. Branch predniSONE 2018-09 Yes 20mg Take 20 mg U nivers 20 mg 2-10 by mouth ity of tablet 00:11: daily. [address] omeprazole 2018-09 Yes 40mg Take 40 mg U nivers 40 mg 2-10 by mouth ity of capsule 00:11: daily. [address] fluticasone 2018-09 Yes 1{puff} Inhale 1 Univers -umeclidin- 2-10 Puff ity of vilanter 00:11: daily. [place] ([address]) Branch 100-62.5-25 mcg DsDv aspirin 81 2018-09 Yes 81mg Take 81 mg U nivers mg EC 2-10 by mouth ity of tablet 00:11: daily. [address] varenicline 2018-09 Yes 1mg Take 1 mg U nivers (CHANTIX) 1 2-10 by mouth 2 it y of mg tablet 00:11: (two) [place] [address] times [facility] daily. Branch predniSONE 2018-09 Yes 20mg Take 20 mg U nivers 20 mg 2-10 by mouth ity of tablet 00:11: daily. [address] omeprazole 2018-09 Yes 40mg Take 40 mg U nivers 40 mg 2-10 by mouth ity of capsule 00:11: daily. [address] fluticasone 2018-09 Yes 1{puff} Inhale 1 Univers -umeclidin- 2-10 Puff ity of vilanter 00:11: daily. [address]) Branch 100-62.5-25 mcg DsDv aspirin 81 2018-09 Yes 81mg Take 81 mg U nivers mg EC 2-10 by mouth ity of tablet 00:11: daily. [address] varenicline 2018-09 Yes 1mg Take 1 mg U nivers (CHANTIX) 1 2-10 by mouth 2 it y of mg tablet 00:11: (two) [place] [address] times Medical daily. Branch predniSONE 2018-09 Yes 20mg Take 20 mg U nivers 20 mg 2-10 by mouth ity of tablet 00:11: daily. [address] omeprazole 2018-09 Yes 40mg Take 40 mg U nivers 40 mg 2-10 by mouth ity of capsule 00:11: daily. [address] fluticasone 2018-09 Yes 1{puff} Inhale 1 Univers -umeclidin- 2-10 Puff ity of vilanter 00:11: daily. [place] ([address]) Branch 100-62.5-25 mcg DsDv aspirin 81 2018-09 Yes 81mg Take 81 mg U nivers mg EC 2-10 by mouth ity of tablet 00:11: daily. [address] varenicline 2018-09 Yes 1mg Take 1 mg U nivers (CHANTIX) 1 2-10 by mouth 2 it y of mg tablet 00:11: (two) [address] daily. Branch predniSONE 2018-09 Yes 20mg Take 20 mg U nivers 20 mg 2-10 by mouth ity of tablet 00:11: daily. [address] omeprazole 2018-09 Yes 40mg Take 40 mg U nivers 40 mg 2-10 by mouth ity of capsule 00:11: daily. [address] fluticasone 2018-09 Yes 1{puff} Inhale 1 Univers -umeclidin- 2-10 Puff ity of vilanter 00:11: daily. [place] ([address]) Branch 100-62.5-25 mcg DsDv aspirin 81 2018-09 Yes 81mg Take 81 mg U nivers mg EC 2-10 by mouth ity of tablet 00:11: daily. [address] varenicline 2019-1 Yes 1mg Take 1 mg U nivers (CHANTIX) 1 2-10 by mouth 2 it y of mg tablet 00:11: (two) [address] Medical daily. Branch predniSONE 2018-09 Yes 20mg Take 20 mg U nivers 20 mg 2-10 by mouth ity of tablet 00:11: daily. [address] Branch omeprazole 2018-09 Yes 40mg Take 40 mg U nivers 40 mg 2-10 by mouth ity of capsule 00:11: daily. [address] Branch fluticasone 2018- Yes 1{puff} Inhale 1 Univers -umeclidin- 2-10 Puff ity of vilanter 00:11: daily. [place] [facility] ELLIPTA) Branch 100-62.5-25 mcg DsDv aspirin 81 2018-09 Yes 81mg Take 81 mg U nivers mg EC 2-10 by mouth ity of tablet 00:11: daily. [address] omeprazole 2018-09 Yes 40mg Take 40 mg U nivers 40 mg 2-10 by mouth ity of capsule 00:11: daily. [address] omeprazole 2018-09 Yes 40mg Take 40 mg U nivers 40 mg 2-10 by mouth ity of capsule 00:11: daily. [address] omeprazole 2018-09 Yes 40mg Take 40 mg U nivers 40 mg 2-10 by mouth ity of capsule 00:11: daily. [address] omeprazole 2018-09 Yes 40mg Take 40 mg U nivers 40 mg 2-10 by mouth ity of capsule 00:11: daily. [address] omeprazole 2018- Yes 40mg Take 40 mg U nivers 40 mg 2-10 by mouth ity of capsule 00:11: daily. [address] omeprazole 2018- Yes 40mg Take 40 mg U nivers 40 mg 2-10 by mouth ity of capsule 00:11: daily. [address] omeprazole 2018- Yes 40mg Take 40 mg U nivers 40 mg 2-10 by mouth ity of capsule 00:11: daily. [address] omeprazole 2018- Yes 40mg Take 40 mg U nivers 40 mg 2-10 by mouth ity of capsule 00:11: daily. [address] omeprazole 2018- Yes 40mg Take 40 mg U nivers 40 mg 2-10 by mouth ity of capsule 00:11: daily. [address] Branch omeprazole 2018-09 Yes 40mg Take 40 mg U nivers 40 mg 2-10 by mouth ity of capsule 00:11: daily. [address] omeprazole 2018-09 Yes 40mg Take 40 mg U nivers 40 mg 2-10 by mouth ity of capsule 00:11: daily. [address] omeprazole 2018-09 Yes 40mg Take 40 mg U nivers 40 mg 2-10 by mouth ity of capsule 00:11: daily. [address] omeprazole 2018-09 Yes 40mg Take 40 mg U nivers 40 mg 2-10 by mouth ity of capsule 00:11: daily. [address] Branch KCL 20 mEq 2018-09 Yes [id number] 40meq Take 2 Univers tablet 2-09 tablets by ity of 00:00: mouth [place] 00 daily. Medical Branch KCL 20 mEq 2018-09 Yes [id number] 40meq Take 2 Univers tablet 2-09 tablets by ity of 00:00: mouth [place] 00 daily. Medical Branch atorvastati 2018-09 Yes [id number] 20mg Take 1 Univers n 20 mg 2-09 tablet by ity of tablet 00:00: mouth at [place] 00 bedtime. Medical Branch metoprolol 2018-09 Yes [id number] 50mg Take 1 Univers succinate 2-09 tablet by ity o f XL 50 mg 24 00:00: mouth 2 [place] as hr tablet 00 (two) Medical times Branch daily. furosemide 2018-09 Yes [id number] 40mg Take 1 Univers 40 mg 2-09 tablet by ity of tablet 00:00: mouth [place] 00 every Medical morning Branch and evening. KCL 20 mEq 2018-09 Yes [id number] 40meq Take 2 [facility] tablet 2-09 tablets by ity of 00:00: mouth [place] 00 daily. Medical Branch atorvastati 2018-09 Yes [id number] 20mg Take 1 [facility] n 20 mg 2-09 tablet by ity of tablet 00:00: mouth at [place] 00 bedtime. Medical Branch metoprolol 2018-09 Yes [id number] 50mg Take 1 [facility] succinate 2-09 tablet by ity o f XL 50 mg 24 00:00: mouth 2 [place] tablet 00 (two) Medical times Branch daily. furosemide 2018-09 Yes [id number] 40mg Take 1 [facility] 40 mg 2-09 tablet by ity of tablet 00:00: mouth [place] 00 every Medical morning Branch and evening. KCL 20 mEq 2018-09 Yes [id number] 40meq Take 2 [facility] tablet 2-09 tablets by ity of 00:00: mouth [place] 00 daily. Medical Branch atorvastati 2018-09 Yes [id number] 20mg Take 1 [facility] n 20 mg 2-09 tablet by ity of tablet 00:00: mouth at [place] 00 bedtime. Medical Branch metoprolol 2018-09 Yes [id number] 50mg Take 1 [facility] succinate 2-09 tablet by ity o f XL 50 mg 24 00:00: mouth 2 [place] tablet 00 (two) Medical times Branch daily. furosemide 2018-09 Yes [id number] 40mg Take 1 [facility] 40 mg 2-09 tablet by ity of tablet 00:00: mouth [place] 00 every Medical morning Branch and evening. KCL 20 mEq 2018-09 Yes [id number] 40meq Take 2 [facility] tablet 2-09 tablets by ity of 00:00: mouth [place] 00 daily. Medical Branch atorvastati 2018-09 Yes [id number] 20mg Take 1 [facility] n 20 mg 2-09 tablet by ity of tablet 00:00: mouth at [place] 00 bedtime. Medical Branch metoprolol 2018-09 Yes [id number] 50mg Take 1 [facility] succinate 2-09 tablet by ity o f XL 50 mg 24 00:00: mouth 2 [place] tablet 00 (two) Medical times Branch daily. furosemide 2018-09 Yes [id number] 40mg Take 1 [facility] 40 mg 2-09 tablet by ity of tablet 00:00: mouth [place] 00 every Medical morning Branch and evening. KCL 20 mEq 2018-09 Yes [id number] 40meq Take 2 [facility] tablet 2-09 tablets by ity of 00:00: mouth [place] 00 daily. Medical Branch atorvastati 2018-09 Yes [id number] 20mg Take 1 [facility] n 20 mg 2-09 tablet by ity of tablet 00:00: mouth at [place] 00 bedtime. Medical Branch metoprolol 2018-09 Yes [id number] 50mg Take 1 [facility] succinate 2-09 tablet by ity o f XL 50 mg 24 00:00: mouth 2 [place] tablet 00 (two) Medical times Branch daily. furosemide 2018-09 Yes [id number] 40mg Take 1 [facility] 40 mg 2-09 tablet by ity of tablet 00:00: mouth [place] 00 every Medical morning Branch and evening. KCL 20 mEq 2018-09 Yes [id number] 40meq Take 2 [facility] tablet 2-09 tablets by ity of 00:00: mouth [place] 00 daily. Medical Branch atorvastati 2018-09 Yes [id number] 20mg Take 1 [facility] n 20 mg 2-09 tablet by ity of tablet 00:00: mouth at [place] 00 bedtime. Medical Branch metoprolol 2018-09 Yes [id number] 50mg Take 1 [facility] succinate 2-09 tablet by ity o f XL 50 mg 24 00:00: mouth 2 [place] tablet 00 (two) Medical times Branch daily. furosemide 2018-09 Yes [id number] 40mg Take 1 [facility] 40 mg 2-09 tablet by ity of tablet 00:00: mouth [place] 00 every Medical morning Branch and evening. KCL 20 mEq 2018-09 Yes [id number] 40meq Take 2 [facility] tablet 2-09 tablets by ity of 00:00: mouth [place] 00 daily. Medical Branch KCL 20 mEq 2018-09 Yes [id number] 40meq Take 2 [facility] tablet 2-09 tablets by ity of 00:00: mouth [place] 00 daily. Medical Branch KCL 20 mEq 2018-09 Yes [id number] 40meq Take 2 [facility] tablet 2-09 tablets by ity of 00:00: mouth [place] 00 daily. Medical Branch KCL 20 mEq 2018-09 Yes [id number] 40meq Take 2 [facility] tablet 2-09 tablets by ity of 00:00: mouth [place] 00 daily. Medical Branch KCL 20 mEq 2018-09 Yes [id number] 40meq Take 2 [facility] tablet 2-09 tablets by ity of 00:00: mouth [place] 00 daily. Medical Branch KCL 20 mEq 2018-09 Yes [id number] 40meq Take 2 [facility] tablet 2-09 tablets by ity of 00:00: mouth [place] 00 daily. Medical Branch KCL 20 mEq 2018-09 Yes [id number] 40meq Take 2 [facility] tablet 2-09 tablets by ity of 00:00: mouth [place] 00 daily. Medical Branch KCL 20 mEq 2018-09 Yes [id number] 40meq Take 2 [facility] tablet 2-09 tablets by ity of 00:00: mouth [place] 00 daily. Medical Branch KCL 20 mEq 2018-09 Yes [id number] 40meq Take 2 [facility] tablet 2-09 tablets by ity of 00:00: mouth [place] 00 daily. Medical Branch KCL 20 mEq 2018-09 Yes [id number] 40meq Take 2 [facility] tablet 2-09 tablets by ity of 00:00: mouth [place] 00 daily. Medical Branch KCL 20 mEq 2018-09 Yes [id number] 40meq Take 2 [facility] tablet 2-09 tablets by ity of 00:00: mouth [place] 00 daily. Medical Branch KCL 20 mEq 2018-09 Yes [id number] 40meq Take 2 [facility] tablet 2-09 tablets by ity of 00:00: mouth [place] 00 daily. Medical Branch KCL 20 mEq 2018-09 Yes [id number] 40meq Take 2 [facility] tablet 2-09 tablets by ity of 00:00: mouth [place] 00 daily. Medical Branch KCL 20 mEq 2018-09 Yes [id number] 40meq Take 2 [facility] tablet 2-09 tablets by ity of 00:00: mouth [place] 00 daily. Medical Branch KCL 20 mEq 2018-09 Yes [id number] 40meq Take 2 [facility] tablet 2-09 tablets by ity of 00:00: mouth [place] 00 daily. Medical Branch KCL 20 mEq 2018-09 Yes [id number] 40meq Take 2 [facility] tablet 2-09 tablets by ity of 00:00: mouth [place] 00 daily. Medical Branch KCL 20 mEq 2018-09 Yes [id number] 40meq Take 2 [facility] tablet 2-09 tablets by ity of 00:00: mouth [place] 00 daily. Medical Branch KCL 20 mEq 2018-09 Yes [id number] 40meq Take 2 [facility] tablet 2-09 tablets by ity of 00:00: mouth [place] 00 daily. Medical Branch KCL 20 mEq 2018-09 Yes [id number] 40meq Take 2 [facility] tablet 2-09 tablets by ity of 00:00: mouth [place] 00 daily. Medical Branch KCL 20 mEq 2018-09- No [id number] 40meq Take 2 [facility] tablet 2-09 03-12 tablets by ity of 00:00: 00:00 mouth [place] 00 :00 daily. Medical Branch atorvastati 2018-09- No [id number] 20mg Take 1 [facility] n 20 mg 2-09 03-26 tablet by ity of tablet 00:00: 00:00 mouth at [place] 00 :00 bedtime. Medical Branch metoprolol 2018-09- No [id number] 50mg Take 1 [facility] succinate 10-28 tablet by ity of XL 50 mg 24 00:00: 00:00 mouth 2 [place] hr tablet 00 :00 (two) Medical times Branch daily. furosemide 2018-09- No [id number] 40mg Take 1 [facility] 40 mg 10-28 [...] Until mL Discontinu ed, Routine ibuprofen Yes [id number] 600mg Take 1 [facility] 600 mg 5-31 tablet by ity of tablet 00:00: mouth [place] 00 every 8 Medical (eight) Branch hours as needed (PAIN). ibuprofen Yes [id number] 600mg Take 1 [facility] n[facility] 600 mg 5-31 tablet by ity of tablet 00:00: mouth [place] 00 every 8 Medical (eight) Branch hours as needed (pain). ibuprofen 2018- No [id number] 600mg Take 1 [facility] 600 mg 5-31 08-15 tablet by ity of tablet 00:00: 00:00 mouth [place] 00 :00 every 8 Medical (eight) Branch hours as needed (PAIN). ibuprofen 2018- No [id number] 600mg Take 1 [facility] 600 mg 5-31 08-15 tablet by ity of tablet 00:00: 00:00 mouth [place] 00 :00 every 8 Medical (eight) Branch hours as needed (pain). magnesium Yes 400mg Take 1 Tab U nivers oxide 2-23 by mouth 3 ity of (MAG-OX 00:00: (three) [place] 400) 400 mg 00 times Medical tablet daily. Branch enalapril Yes [id number] 2.5mg Take 1 Tab [facility] (VASOTEC) 2-23 [...] s tablet 00 Medical Branch furosemide Yes [id number] 40mg Take 1 Tab [facility] (LASIX) 40 [...] Medical tablet daily. Branch enalapril 2019- No [id number] 2.5mg Take 1 Tab [facility] (VASOTEC) 2-23 [...] 00 :00 Medical Branch furosemide 2019- No [id number] 40mg Take 1 Tab [facility] (LASIX) 40 [...] by mouth ity of tablet 00:00: daily. [place] [facility] ipratropium 2013-09 Yes .5mg Inhale [...] by mouth ity of tablet 00:00: daily. [place] [facility] ipratropium 2013-09 Yes .5mg Inhale [...] by mouth ity of tablet 00:00: daily. [place] [facility] ipratropium 2013-09 Yes .5mg Inhale [...] by mouth ity of tablet 00:00: daily. [place] [facility] ipratropium 2013-09 Yes .5mg Inhale [...] by mouth ity of tablet 00:00: daily. [place] [facility] ipratropium 2013-09 Yes .5mg Inhale [...] by mouth ity of tablet 00:00: daily. [place] [facility] ipratropium 2013-09 Yes .5mg Inhale [...] by mouth ity of tablet 00:00: daily. [place] [facility] ipratropium 2013-09 Yes .5mg Inhale [...] by mouth ity of tablet 00:00: daily. [place] [facility] ipratropium 2013-09 Yes .5mg Inhale [...] by mouth ity of tablet 00:00: daily. [place] [facility] ipratropium 2013-09 Yes .5mg Inhale [...] by mouth ity of tablet 00:00: daily. [place] [facility] ipratropium 2013-09 Yes .5mg Inhale [...] by mouth ity of tablet 00:00: daily. [place] [facility] ipratropium 2013-09 Yes .5mg Inhale [...] by mouth ity of tablet 00:00: daily. [place] [facility] ipratropium 2013-09 Yes .5mg Inhale [...] by mouth ity of tablet 00:00: daily. [place] [facility] ipratropium 2013-09 Yes .5mg Inhale [...] by mouth ity of tablet 00:00: daily. [place] [facility] ipratropium 2013-09 Yes .5mg Inhale [...] by mouth ity of tablet 00:00: daily. [place] [facility] ipratropium 2013-09 Yes .5mg Inhale [...] by mouth ity of tablet 00:00: daily. [place] [facility] ipratropium 2013-09 Yes .5mg Inhale [...] by mouth ity of tablet 00:00: daily. [place] [facility] ipratropium 2013-09 Yes .5mg Inhale [...] by mouth ity of tablet 00:00: daily. [place] [facility] ipratropium 2013-09 Yes .5mg Inhale [...] by mouth ity of tablet 00:00: daily. [place] [facility] ipratropium 2013-09 Yes .5mg Inhale [...] [place] mL 00 times Medical nebulizer daily. [facility] solution aspirin 81 2013-09- No 81mg Take 1 Tab [facility] mg chewable 11-05 by mouth ity of tablet 00:00: 00:00 daily. [place] 00 : [facility] ipratropium 2013-09- No .5mg Inhale 2.5 [facility] (ATROVENT) 11-05 mL 4 ity of 0.02 % 00:00: 00:00 (four) [place] nebulizer 00 :00 times Medical solution daily. Branch levalbutero 2013-09- No .31mg Inhale Un igor l (XOPENEX) 11-05 0.31 mg 3 it y of 0.31 mg/3 00:00: 00:00 (three) [place] 00 :00 times Medical nebulizer daily. Branch solution Vital Signs Vital Name Observation Time Observation Value Comments Source Systolic blood 2023-04-19 126 mm[Hg] University of pressure 15:37:00 [facility] Diastolic blood 2023-04-19 83 mm[Hg] University o f pressure 15:37:00 [facility] Heart rate 2023-04-19 94 /min University 15:37:00 [facility] Respiratory rate 2023-04-19 18 /min University 15:35:00 [facility] Body height 2023-04-19 177.8 cm University of 15:35:00 [facility] Body weight 2023-04-19 59.138 kg University 15:35:00 [facility] BMI 2023-04-19 18.71 kg/m2 University of 15:35:00 [facility] Oxygen saturation 2023-04-19 94 /min [facility] in Arterial blood 15:35:00 [facility] by Pulse oximetry [place] Systolic blood 2023-03-01 143 mm[Hg] University of pressure 20:27:00 [facility] Diastolic blood 2023-03-01 87 mm[Hg] University o f pressure 20:27:00 [facility] Heart rate 2023-03-01 99 /min University 20:27:00 [facility] Body height 2023-03-01 177.8 cm University 20:27:00 [facility] Body weight 2023-03-01 57.153 kg University of 20:27:00 [facility] BMI 2023-03-01 18.08 kg/m2 University of 20:27:00 [facility] [place] [facility] Oxygen saturation 2023-03-01 99 /min University of in Arterial blood 20:27:00 [facility] by Pulse oximetry Branch Systolic blood 2023-02-18 144 mm[Hg] University of pressure 16:17:00 [facility] Diastolic blood 2023-02-18 68 mm[Hg] University o f pressure 16:17:00 [facility] Heart rate 2023-02-18 55 /min University of 16:17:00 [facility] Body temperature 2023-02-18 36.06 Tia [facility] of 16:17:00 [facility] [place] [facility] Respiratory rate 2023-02-18 18 /min University of 16:17:00 [facility] Oxygen saturation 2023-02-18 100 /min University of in Arterial blood 16:17:00 [facility] by Pulse oximetry Branch Body weight 2023-02-18 58.968 kg University of 07:50:00 [facility] BMI 2023-02-18 18.65 kg/m2 University of 07:50:00 [facility] Body height 2023-02-16 177.8 cm University of 00:31:00 [facility] Oxygen saturation 2023-02-07 99 /min [facility] of in Arterial blood 19:29:00 [facility] by Pulse oximetry Branch Systolic blood 2023-02-07 103 mm[Hg] University of pressure 19:27:00 [facility] Diastolic blood 2023-02-07 75 mm[Hg] University o f pressure 19:27:00 [facility] Heart rate 2023-02-07 104 /min University of 19::00 [facility] Body temperature 2023-02-07 36.39 Tia [facility] of 19:27:00 [facility] Respiratory rate 2023-02-07 22 /min University of 19:27:00 [facility] Body weight 2023-02-07 72.576 kg University of 19:27:00 [facility] BMI 2023-02-07 22.96 kg/m2 University of 19:27:00 [facility] Heart rate 2023-02-05 85 /min University of 20:17:00 [facility] Respiratory rate 2023-02-05 18 /min University of 20:17:00 [facility] [place] [facility] Oxygen saturation 2023-02-05 100 /min University of in Arterial blood 20:17:00 [facility] by Pulse oximetry Branch Systolic blood 2023-02-05 98 mm[Hg] University of pressure 19:53:35 [facility] [place] [facility] Diastolic blood 2023-02-05 71 mm[Hg] University o f pressure 19:53:35 [facility] Body temperature 2023-02-05 36.5 Tia University of 19:51:00 [facility] Body height 2023-02-05 177.8 cm University of 19:51:00 [facility] Body weight 2023-02-05 72.576 kg University of 19:51:00 [facility] BMI 2023-02-05 22.96 kg/m2 University of 19:51:00 [facility] Heart rate 2023-02-04 76 /min University of 20:31:00 [facility] Respiratory rate 2023-02-04 18 /min University of 20:31:00 [facility] Oxygen saturation 2023-02-04 97 /min University of in Arterial blood 20:31:00 [facility] by Pulse oximetry Branch Systolic blood 2023-02-04 126 mm[Hg] University of pressure 20:15:00 [facility] [place] [facility] Diastolic blood 2023-02-04 98 mm[Hg] University o f pressure 20:15:00 [facility] Body temperature 2023-02-04 36.83 Tia University of 20:15:00 [facility] Body weight 2023-02-04 72.576 kg University of 20:15:00 [facility] BMI 2023-02-04 22.96 kg/m2 University of 20:15:00 [facility] Systolic blood 2023-02-03 100 mm[Hg] University of pressure 23:00:00 [facility] [place] [facility] Diastolic blood 2023-02-03 65 mm[Hg] University o f pressure 23:00:00 [facility] Heart rate 2023-02-03 115 /min University of 23:00:00 [facility] [place] [facility] Respiratory rate 2023-02-03 20 /min University of 23:00:00 [facility] Oxygen saturation 2023-02-03 97 /min University of in Arterial blood 23:00:00 [facility] by Pulse oximetry Branch Body temperature 2023-02-03 36.72 [place] University of 22:44:00 [facility] Body weight 2023-02-03 72.576 kg University of 22:44:00 [facility] BMI 2023-02-03 22.96 kg/m2 University of 22:44:00 [facility] [place] [facility] Systolic blood 2023-02-03 128 mm[Hg] University of pressure 20:02:00 [facility] [place] [facility] Diastolic blood 2023-02-03 81 mm[Hg] University o f pressure 20:02:00 [facility] Heart rate 2023-02-03 88 /min University of 20:02:00 [facility] [place] [facility] Respiratory rate 2023-02-03 25 /min University of 20:02:00 [facility] [place] [facility] Oxygen saturation 2023-02-03 94 /min University of in Arterial blood 20:02:00 [facility] by Pulse oximetry Branch Body temperature 2023-02-03 36.61 Tia University of 18:18:00 [facility] Body weight 2023-02-03 72.576 kg University of 17:41:00 [facility] BMI 2023-02-03 22.96 kg/m2 University of 17:41:00 [facility] Heart rate 2023-02-02 107 /min University of 22:49:00 [facility] Respiratory rate 2023-02-02 20 /min University of 22:49:00 [facility] Oxygen saturation 2023-02-02 94 /min University of in Arterial blood 22:49:00 [facility] by Pulse oximetry Branch Systolic blood 2023-02-02 102 mm[Hg] University of pressure 22:32:00 [facility] Diastolic blood 2023-02-02 74 mm[Hg] University o f pressure 22:32:00 [facility] Body temperature 2023-02-02 35.83 Tia University of 21:58:32 [facility] Body height 2023-02-02 177.8 cm University of 21:54:00 [facility] Body weight 2023-02-02 72.576 kg University of 21:54:00 [facility] BMI 2023-02-02 22.96 kg/m2 University of 21:54:00 [facility] Systolic blood 2023-01-31 140 mm[Hg] University of pressure 21:00:00 [facility] Diastolic blood 2023-01-31 72 mm[Hg] University o f pressure 21:00:00 [facility] Heart rate 2023-01-31 89 /min University of 21:00:00 [facility] Respiratory rate 2023-01-31 20 /min University of 21:00:00 [facility] Oxygen saturation 2023-01-31 97 /min University of in Arterial blood 21:00:00 [facility] by Pulse oximetry Branch Body temperature 2023-01-31 36.72 Tia University of 18:50:00 [facility] Body weight 2023-01-31 72.576 kg University of 18:50:00 [facility] BMI 2023-01-31 22.96 kg/m2 University of 18:50:00 [facility] Systolic blood 2023-01-31 130 mm[Hg] University of pressure 16:09:00 [facility] Diastolic blood 2023-01-31 72 mm[Hg] University o f pressure 16:09:00 [facility] Heart rate 2023-01-31 99 /min University of 16:09:00 [facility] Body temperature 2023-01-31 36.39 Tia University of 16:09:00 [facility] Respiratory rate 2023-01-31 18 /min University of 16:09:00 [facility] Body height 2023-01-31 177.8 cm University of 16:09:00 [facility] Body weight 2023-01-31 72.576 kg University of 16:09:00 [facility] BMI 2023-01-31 22.96 kg/m2 University of 16:09:00 [facility] Oxygen saturation 2023-01-31 97 /min University of in Arterial blood 16:09:00 [facility] by Pulse oximetry Branch Systolic blood 2023-01-31 134 mm[Hg] University of pressure 14:50:00 [facility] Diastolic blood 2023-01-31 72 mm[Hg] University o f pressure 14:50:00 [facility] Heart rate 2023-01-31 85 /min University of 14:50:00 [facility] Body temperature 2023-01-31 36.39 T[place] University of 14:50:00 [facility] Respiratory rate 2023-01-31 20 /min University of 14:50:00 [facility] Body weight 2023-01-31 72.576 kg University of 14:50:00 [facility] BMI 2023-01-31 22.96 kg/m2 University of 14:50:00 [facility] Oxygen saturation 2023-01-31 100 /min University of in Arterial blood 14:50:00 [facility] by Pulse oximetry Branch Respiratory rate 2023-01-29 20 /min University of 13:40:00 [facility] [place] [facility] Oxygen saturation 2023-01-29 100 /min University of in Arterial blood 13:40:00 [facility] by Pulse oximetry Branch Systolic blood 2023-01-29 123 mm[Hg] University of pressure 13:06:00 [facility] [place] [facility] Diastolic blood 2023-01-29 76 mm[Hg] University o f pressure 13:06:00 [facility] Heart rate 2023-01-29 97 /min University of 13:06:00 [facility] Body temperature 2023-01-29 36.61 Tia University of 13:06:00 [facility] Body height 2023-01-29 177.8 cm University of 13:06:00 [facility] Body weight 2023-01-29 72.576 kg University of 13:06:00 [facility] BMI 2023-01-29 22.96 kg/m2 University of 13:06:00 [facility] Systolic blood 2023-01-27 115 mm[Hg] University of pressure 11:47:00 [facility] [place] [facility] Diastolic blood 2023-01-27 75 mm[Hg] University o f pressure 11:47:00 [facility] Heart rate 2023-01-27 100 /min University of 11:47:00 [facility] Body temperature 2023-01-27 35.78 Tia University of 11:47:00 [facility] Respiratory rate 2023-01-27 28 /min University of 11:47:00 [facility] Oxygen saturation 2023-01-27 99 /min University of in Arterial blood 11:47:00 [facility] by Pulse oximetry Branch Body height 2023-01-27 177.8 cm University of 09:57:00 [facility] Body weight 2023-01-27 72.576 kg University of 09:57:00 [facility] BMI 2023-01-27 22.96 kg/m2 University of 09:57:00 [facility] [place] [facility] Heart rate 2023-01-24 88 /min University of 20:55:00 [facility] [place] [facility] Oxygen saturation 2023-01-24 93 /min University of in Arterial blood 20:55:00 [facility] by Pulse oximetry Branch Respiratory rate 2023-01-24 22 /min University of 20:52:00 [facility] Systolic blood 2023-01-24 128 mm[Hg] University of pressure 20:30:00 [facility] Diastolic blood 2023-01-24 69 mm[Hg] University o f pressure 20:30:00 [facility] Body temperature 2023-01-24 36.67 Tia University of 17:24:00 [facility] Body height 2023-01-24 177.8 cm University of 17:24:00 [facility] Body weight 2023-01-24 72.576 kg University of 17:24:00 [facility] BMI 2023-01-24 22.96 kg/m2 University of 17:24:00 [facility] Systolic blood 2023-01-24 129 mm[Hg] University of pressure 01:00:00 [facility] Diastolic blood 2023-01-24 76 mm[Hg] University o f pressure 01:00:00 [facility] Heart rate 2023-01-24 77 /min University of 01:00:00 [facility] Respiratory rate 2023-01-24 18 /min University of 01:00:00 [facility] Oxygen saturation 2023-01-24 99 /min University of in Arterial blood 01:00:00 [facility] by Pulse oximetry Branch Body temperature 2023-01-24 35.61 Tia warm blankets University of 00:02:00 applied [facility] Body weight 2023-01-24 58.968 kg University of 00:02:00 [facility] BMI 2023-01-24 18.65 kg/m2 University of 00:02:00 [facility] Heart rate 2023-01-22 93 /min University of 23:46:00 [facility] Respiratory rate 2023-01-22 20 /min University of 23:46:00 [facility] Oxygen saturation 2023-01-22 100 /min [facility] of in Arterial blood 23:46:00 [place] [facility] by Pulse oximetry Branch Systolic blood 2023-01-22 146 mm[Hg] University of pressure 23:21:00 [facility] Diastolic blood 2023-01-22 93 mm[Hg] University o f pressure 23:21:00 [facility] Body temperature 2023-01-22 36.72 Tia University of 23:21:00 [facility] Body weight 2023-01-22 58.968 kg University of 23:21:00 [facility] BMI 2023-01-22 18.65 kg/m2 University of 23:21:00 [facility] Heart rate 2023-01-21 84 /min University of 21:57:00 [facility] Respiratory rate 2023-01-21 18 /min University of 21:57:00 [facility] Oxygen saturation 2023-01-21 97 /min University of in Arterial blood 21:57:00 [facility] by Pulse oximetry Branch Systolic blood 2023-01-21 103 mm[Hg] University of pressure 21:00:00 [facility] [place] [facility] Diastolic blood 2023-01-21 61 mm[Hg] University o f pressure 21:00:00 [facility] Body temperature 2023-01-21 36.56 Tia University of 19:24:00 [facility] Body weight 2023-01-21 58.968 kg University of 19:24:00 [facility] BMI 2023-01-21 18.65 kg/m2 University of 19:24:00 [facility] Systolic blood 2023-01-19 111 mm[Hg] University of pressure 21:00:00 [facility] Diastolic blood 2023-01-19 64 mm[Hg] University o f pressure 21:00:00 [facility] Heart rate 2023-01-19 85 /min University of :00:00 [facility] Body temperature 2023-01-19 36.56 Tia University of 21:00:00 [facility] Respiratory rate 2023-01-19 17 /min University of 21:00:00 [facility] Oxygen saturation 2023-01-19 98 /min University of in Arterial blood 21:00:00 [facility] by Pulse oximetry Branch Body height 2023-01-19 177.8 cm University of 06:22:00 [facility] Body weight 2023-01-19 58.968 kg University of 06:22:00 [facility] BMI 2023-01-19 18.65 kg/m2 University of 06:22:00 [facility] Systolic blood 2023-01-17 116 mm[Hg] University of pressure 12:05:00 [facility] Diastolic blood 2023-01-17 69 mm[Hg] University o f pressure 12:05:00 [facility] Heart rate 2023-01-17 100 /min University of 12:05:00 [facility] Respiratory rate 2023-01-17 24 /min [facility] 12:05:00 [facility] Oxygen saturation 2023-01-17 93 /min [facility] in Arterial blood 12:05:00 [place] [facility] Pulse oxim[facility] Body temperature 2023-01-17 35.39 Tia University [facility] 10:59:00 [facility] Body height 2023-01-17 177.8 cm University of 10:59:00 [facility] Body weight 2023-01-17 58.968 kg University of 10:59:00 [facility] BMI 2023-01-17 18.65 kg/m2 University of 10:59:00 [facility] Systolic blood 2023-01-07 122 mm[Hg] University of pressure 19:38:00 [facility] Diastolic blood 2023-01-07 86 mm[Hg] University o f pressure 19:38:00 [facility] Heart rate 2023-01-07 110 /min [facility] of 19:38:00 [facility] Respiratory rate 2023-01-07 16 /min [facility] 19:38:00 [facility] Body height 2023-01-07 177.8 cm University [facility] 19:38:00 [facility] Body weight 2023-01-07 59.966 kg University of 19:38:00 [facility] BMI 2023-01-07 18.97 kg/m2 University of 19:38:00 [facility] Systolic blood 2022-12-26 118 mm[Hg] University of pressure 18:00:00 [facility] Diastolic blood 2022-12-26 79 mm[Hg] University o f pressure 18:00:00 [facility] Heart rate 2022-12-26 93 /min [facility] of 18:00:00 [facility] Respiratory rate 2022-12-26 20 /min [facility] 18:00:00 [facility] Oxygen saturation 2022-12-26 95 /min [facility] in Arterial blood 18:00:00 [place] [facility] Pulse oximetry [facility] Body temperature 2022-12-26 36.11 Tia University [facility] 15:49:00 [facility] Body height 2022-12-26 177.8 cm University of 15:49:00 [facility] Body weight 2022-12-26 72.576 kg University of 15:49:00 [facility] BMI 2022-12-26 22.96 kg/m2 University of 15:49:00 [facility] Respiratory rate 2022-12-12 18 /min [facility] 16:45:00 [facility] Oxygen saturation 2022-12-12 99 /min [facility] in Arterial blood 16:45:00 [place] [facility] Pulse oximetry Branch Systolic blood 2022-12-12 135 mm[Hg] University of pressure 16:11:00 [facility] Diastolic blood 2022-12-12 80 mm[Hg] University o f pressure 16:11:00 [facility] Heart rate 2022-12-12 77 /min [facility] of 16:11:00 [facility] Body temperature 2022-12-12 35.89 Tia University [facility] 16:11:00 [facility] Body weight 2022-12-12 65 kg University of 08:50:00 [facility] BMI 2022-12-12 20.56 kg/m2 University of 08:50:00 [facility] Body height 2022-12-11 177.8 cm University of 04:23:00 [facility] Heart rate 2022-12-04 95 /min [facility] of 12:33:00 [facility] Respiratory rate 2022-12-04 17 /min [facility] of 12:33:00 [facility] Oxygen saturation 2022-12-04 98 /min [facility] of in Arterial blood 12:33:00 [facility] by Pulse oximetry Branch Systolic blood 2022-12-04 125 mm[Hg] University of pressure 12:20:00 [facility] Diastolic blood 2022-12-04 74 mm[Hg] University o f pressure 12:20:00 [facility] Body temperature 2022-12-04 36.61 Tia University of 12:20:00 [facility] Body height 2022-12-02 177.8 cm University of 05:16:00 [facility] Body weight 2022-12-02 72.576 kg University of 05:16:00 [facility] BMI 2022-12-02 22.96 kg/m2 University of 05:16:00 [facility] Systolic blood 2022-12-01 114 mm[Hg] University of pressure 13:00:00 [facility] Diastolic blood 2022-12-01 78 mm[Hg] University o f pressure 13:00:00 [facility] Heart rate 2022-12-01 88 /min University of 13:00:00 [facility] Respiratory rate 2022-12-01 20 /min [facility] 13:00:00 [facility] Oxygen saturation 2022-12-01 98 /min [facility] in Arterial blood 13:00:00 [place] [facility] Pulse oximetry [facility] Body temperature 2022-12-01 36.67 Tia University [facility] 10:13:00 [facility] Body height 2022-12-01 177.8 cm University of 10:13:00 [facility] Body weight 2022-12-01 72.576 kg University of 10:13:00 [facility] BMI 2022-12-01 22.96 kg/m2 University of 10:13:00 [facility] Systolic blood 2022-11-28 154 mm[Hg] University of pressure 17:00:00 [facility] Diastolic blood 2022-11-28 106 mm[Hg] University o f pressure 17:00:00 [facility] Heart rate 2022-11-28 87 /min [facility] of 17:00:00 [facility] Respiratory rate 2022-11-28 23 /min [facility] of 17:00:00 [facility] Oxygen saturation 2022-11-28 96 /min [facility] of in Arterial blood 17:00:00 [facility] lucho by Pulse oximetry Branch Body temperature 2022-11-28 36.78 Tia University of 16:00:00 [facility] Body weight 2022-11-27 67.132 kg University of 12:00:00 [facility] BMI 2022-11-27 21.24 kg/m2 University of 12:00:00 [facility] Body height 2022-11-27 177.8 cm University of 08:39:00 [facility] Systolic blood 2022-11-19 152 mm[Hg] [facility] of pressure 10:48:00 [facility] Diastolic blood 2022-11-19 88 mm[Hg] University o f pressure 10:48:00 [facility] Heart rate 2022-11-19 92 /min University of 10:48:00 [facility] Respiratory rate 2022-11-19 16 /min [facility] of 10:48:00 [facility] Oxygen saturation 2022-11-19 98 /min [facility] in Arterial blood 10:48:00 [place] [facility] Pulse oxim[facility] Body temperature 2022-11-19 36.22 Tia University [facility] 08:20:00 [facility] Body height 2022-11-19 177.8 cm University of 08:20:00 [facility] Body weight 2022-11-19 67.132 kg University of 08:20:00 [facility] BMI 2022-11-19 21.24 kg/m2 University of 08:20:00 [facility] Systolic blood 2022-11-19 152 mm[Hg] University of pressure 02:18:57 [facility] Diastolic blood 2022-11-19 91 mm[Hg] University o f pressure 02:18:57 [facility] Heart rate 2022-11-19 109 /min [facility] of 02:18:57 [facility] Respiratory rate 2022-11-19 22 /min [facility] of 02:18:57 [facility] Oxygen saturation 2022-11-19 95 /min [facility] in Arterial blood 02:18:57 [place] [facility] Pulse oxim[facility] Body temperature 2022-11-19 36.78 Tia University [facility] 02:17:11 [facility] Body height 2022-11-19 177.8 cm University of 00:52:00 [facility] Body weight 2022-11-19 67.132 kg University of 00:52:00 [facility] BMI 2022-11-19 21.24 kg/m2 University of 00:52:00 [facility] Heart rate 2022-11-11 75 /min [facility] of 17:35:00 [facility] Respiratory rate 2022-11-11 18 /min [facility] 17:35:00 [facility] Oxygen saturation 2022-11-11 95 /min [facility] in Arterial blood 17:35:00 [place] [facility] Pulse oximetry Branch Systolic blood 2022-11-11 130 mm[Hg] [facility] of pressure 17:25:00 [facility] Diastolic blood 2022-11-11 71 mm[Hg] University o f pressure 17:25:00 [facility] Body temperature 2022-11-11 35.94 Tia University [facility] 17:25:00 [facility] Body weight 2022-11-11 77.52 kg University of 09:34:00 [facility] BMI 2022-11-11 24.52 kg/m2 University of 09:34:00 [facility] Body height 2022-11-09 177.8 cm University of 19:30:00 [facility] Systolic blood 2020-12-29 96 mm[Hg] University of pressure 15:24:00 [facility] Diastolic blood 2020-12-29 66 mm[Hg] University o f pressure 15:24:00 [facility] Heart rate 2020-12-29 71 /min University of 15:24:00 [facility] Body temperature 2020-12-29 36.33 Tia University of 15:24:00 [facility] Body weight 2020-12-29 72.576 kg University of 15:24:00 [facility] BMI 2020-12-29 22.96 kg/m2 University of 15:24:00 [facility] Oxygen saturation 2020-12-29 95 /min [facility] of in Arterial blood 15:24:00 [facility] lucho by Pulse oximetry Branch Systolic blood 2020-12-18 117 mm[Hg] University of pressure 19:07:00 [facility] Diastolic blood 2020-12-18 77 mm[Hg] University o f pressure 19:07:00 [facility] Heart rate 2020-12-18 77 /min [facility] of 19:07:00 [facility] Body temperature 2020-12-18 36.22 Tia University of 19:07:00 [facility] Respiratory rate 2020-12-18 18 /min [facility] of 19:07:00 [facility] Body height 2020-12-18 177.8 cm [facility] of 19:07:00 [facility] Body weight 2020-12-18 73.211 kg University of 19:07:00 [facility] BMI 2020-12-18 23.16 kg/m2 University of 19:07:00 [facility] Systolic blood 2020-12-12 109 mm[Hg] University of pressure 18:00:00 [facility] Diastolic blood 2020-12-12 74 mm[Hg] University o f pressure 18:00:00 [facility] Heart rate 2020-12-12 78 /min [facility] of 18:00:00 [facility] Respiratory rate 2020-12-12 20 /min University of 18:00:00 [facility] Oxygen saturation 2020-12-12 96 /min [facility] of in Arterial blood 18:00:00 [facility] lucho by Pulse oximetry Branch Body temperature 2020-12-12 37.28 Tia University of 16:33:00 [facility] Body height 2020-12-12 177.8 cm University of 16:33:00 [facility] Body weight 2020-12-12 70.308 kg University of 16:33:00 [facility] BMI 2020-12-12 22.24 kg/m2 University of 16:33:00 [facility] Systolic blood 2020-12-08 125 mm[Hg] University of pressure 18:55:00 [facility] Diastolic blood 2020-12-08 82 mm[Hg] University o f pressure 18:55:00 [facility] Heart rate 2020-12-08 75 /min [facility] of 18:55:00 [facility] Body temperature 2020-12-08 36.56 Tia University of 18:55:00 [facility] Respiratory rate 2020-12-08 16 /min [facility] of 18:55:00 [facility] Body height 2020-12-08 177.8 cm University of 18:55:00 [facility] Body weight 2020-12-08 73.12 kg University of 18:55:00 [facility] BMI 2020-12-08 23.13 kg/m2 University of 18:55:00 [facility] Systolic blood 2019-05-04 127 mm[Hg] University of pressure 04:21:00 [facility] Diastolic blood 2019-05-04 86 mm[Hg] University o f pressure 04:21:00 [facility] Heart rate 2019-05-04 99 /min [facility] of 04:21:00 [facility] Respiratory rate 2019-05-04 26 /min [place] 04:21:00 [facility] Body height 2019-05-04 177.8 cm [place] 04:21:00 [facility] Body weight 2019-05-04 72.576 kg [facility] 04:21:00 [facility] BMI 2019-05-04 22.96 kg/m2 University of 04:21:00 [facility] Oxygen saturation 2019-05-04 99 /min University in Arterial blood 04:21:00 [facility] Pulse oximetry Branch Systolic blood 2019-05-04 127 mm[Hg] University of pressure 04:21:00 [facility] Diastolic blood 2019-05-04 86 mm[Hg] University o f pressure 04:21:00 [facility] Heart rate 2019-05-04 99 /min [facility] of 04:21:00 [facility] Respiratory rate 2019-05-04 26 /min [facility] 04:21:00 [facility] Body height 2019-05-04 177.8 cm [facility] 04:21:00 [facility] Body weight 2019-05-04 72.576 kg [facility] 04:21:00 [facility] BMI 2019-05-04 22.96 kg/m2 [facility] 04:21:00 [facility] Oxygen saturation 2019-05-04 99 /min [facility] Arterial blood 04:21:00 [facility] by Pulse oximetry Branch Procedures Procedure Date / Time Performing Clinician Source Performed [id number] 2023-03-15 00:00:00 XUCHU [facility] CONSENT/REFUSAL FOR 2023-03-01 19:49:30 [facility] Branch TRANSTHORACIC ECHO (TTE) 2023-02-16 13:56:56 Dedrick Toth [facility] COMPLETE W/ CONTRAST Medical Bra nc TROPONIN I 2023-02-16 11:32:[address] [facility] COMP. METABOLIC PANEL 2023-02-16 11:32:00 Dedrick Toth [facility] ([id number]) [facility] CBC WITH DIFF 2023-02-16 11:32:[address] [facility] N-TERMINAL PRO-BNP 2023-02-16 11:32:00 Dedrick Toth [facility] URINALYSIS 2023-02-15 21:18:00 Francisca Bryant [facility] HB ECG ROUTINE & RHYTHM 2023-02-15 20:15:35 Francisca Bryant [facility] XR CHEST 1 VW 2023-02-15 20:14:30 Francisca Bryant [facility] AC PANEL 21 + LACTIC 2023-02-15 20:02:00 Francisca Bryant [facility] ACID [facility] MAGNESIUM 2023-02-15 20:01:00 Francisca Bryant [facility] TROPONIN I 2023-02-15 20:01:00 Francisca Bryant [facility] COMP. METABOLIC PANEL 2023-02-15 20:01:00 Francisca Bryant [facility] ([id number]) [facility] CBC WITH DIFF 2023-02-15 20:01:00 Francisca Bryant [facility] ASSIGNMENT OF BENEFITS 2023-02-07 19:52:07 Doctor Unassigned, No [facility] Name Medical Branch CONSENT/REFUSAL FOR 2023-02-07 19:51:03 [facility] [facility] [place] [facility] Name Medical Branch CONSENT/REFUSAL FOR 2023-02-04 19:51:56 Doctor Unassigned, No [facility] [place] [facility] Name Medical Branch TROPONIN I 2023-01-31 20:21:00 Kristie [facility] COMP. METABOLIC PANEL 2023-01-31 20:21:00 Rachael Flowers [facility] ([id number]) Medical Branch ETHANOL 2023-01-31 20:21:00 Kristie [facility] CBC WITH DIFF 2023-01-31 20:21:00 Kristie [facility] N-TERMINAL PRO-BNP 2023-01-31 20:21:00 Rachael Flowers [facility] CONSENT/REFUSAL FOR 2023-01-31 18:39:05 Doctor Unassigned, No [facility] [place] [facility] Name Medical Branch CONSENT/REFUSAL FOR 2023-01-31 15:54:08 Doctor Unassigned, No [facility] [place] [facility] Name Medical Branch CONSENT/REFUSAL FOR 2023-01-31 14:29:18 Doctor Unassigned, No [facility] [place] [facility]REAT[facility] Name [facility] ACUTE CARE VENOUS BLOOD 2023-01-27 10:45:00 Bessie Oswald [facility] GAS [facility] TROPONIN I 2023-01-27 10:16:00 Bessie Oswald [facility] BASIC METABOLIC PANEL 2023-01-27 10:16:00 Bessie Oswald [facility] (NA, K, CL, CO2, Medical Branch GLUCOSE, BUN, CREATININE, CA) CBC WITH DIFF 2023-01-27 10:16:00 Bessie Oswald [facility] N-TERMINAL PRO-BNP 2023-01-27 10:16:00 Bessie Oswald [facility] URINALYSIS 2023-01-24 20:23:00 Stephanie Almonte [facility] CT HEAD WO CONTRAST 2023-01-24 19:38:00 Stephanie Almonte [facility] AC ABG + LACTIC ACID 2023-01-24 18:37:00 Stephanie Almonte [facility] AMMONIA, PLASMA 2023-01-24 18:19:00 Stephanie Almonte [facility] RAPID STREP SCREEN FOR 2023-01-24 18:19:00 Stephanie Almonte [facility] GROUP A [facility] COVID-19 (ID NOW RAPID 2023-01-24 18:19:00 Stephanie Almonte [facility] TESTING) Medical Branch TROPONIN I 2023-01-24 17:52:00 Stephanie Almonte [facility] COMP. METABOLIC PANEL 2023-01-24 17:52:00 Stephanie Almonte [facility] ([id number]) Medical Branch ETHANOL 2023-01-24 17:52:00 Stephanie Almonte [facility] CBC WITH DIFF 2023-01-24 17:52:00 Stephanie Almonte [facility] N-TERMINAL PRO-BNP 2023-01-24 17:52:00 Stephanie Almonte [facility] COMP. METABOLIC PANEL 2023-01-21 20:58:00 [id number] TROPONIN I 2023-01-21 20:05:00 Singer Louis [facility] CBC WITH DIFF 2023-01-21 20:05:00 Singer [facility] N-TERMINAL PRO-BNP 2023-01-21 20:05:00 Louis Hong [facility] AC PANEL 21 + LACTIC 2023-01-19 08:31:00 Lew [facility] ACID [facility] D-DIMER 2023-01-19 08:17:00 [facility] BASIC METABOLIC PANEL 2023-01-19 08:15:00 Iza Varma [facility] (NA, K, CL, CO2, Medical Branch GLUCOSE, BUN, CREATININE, CA) CBC WITH DIFF 2023-01-19 08:15:00 Iza Varma [facility] N-TERMINAL PRO-BNP 2023-01-19 08:15:00 Agapito Hackett [facility] EKG-12 LEAD 2023-01-17 12:23:[address] [facility] XR CHEST 1 VW 2023-01-17 11:25:[address] [facility] TROPONIN I 2023-01-17 11:04:[address] [facility] COMP. METABOLIC PANEL 2023-01-17 11:04:00 Marisol Devlin [facility] ([id number]) [facility] CBC WITH DIFF 2023-01-17 11:04:[address] [facility] N-TERMINAL PRO-BNP 2023-01-17 11:04:00 Marisol Devlin [facility] COMP. METABOLIC PANEL 2022-12-26 17:23:00 Iza Varma [facility] ([id number]) [facility] XR CHEST 1 VW 2022-12-26 16:39:21 Iza Varma [facility] URINE DRUG (IMMUNOASSAY) 2022-12-26 16:29:00 Iza Varma [facility] DRUG Medical [facility] SCREEN URINALYSIS 2022-12-26 16:29:00 Iza Varma [facility] CBC WITH DIFF 2022-12-26 16:28:00 Iza Varma [facility] MAGNESIUM 2022-12-12 08:55:00 elvia [facility] BASIC METABOLIC PANEL 2022-12-12 08:55:00 [facility] (NA, K, CL, CO2, Medical Branch GLUCOSE, BUN, CREATININE, CA) LIPID PANEL 2022-12-12 08:55:00 [facility] ([id number])(TOTAL Medical Branch CHOLESTEROL, TRIGLYCERIDES, HDL) N-TERMINAL PRO-BNP 2022-12-12 08:55:00 Travis Zeng [facility] MAGNESIUM 2022-12-11 08:30:[address] [facility] OSMOLALITY, SERUM OR 2022-12-11 08:30:00 Dedrick Tothe [facility] PLASMA [facility] FREE T4 2022-12-11 08:30:[address] [facility] BASIC METABOLIC PANEL 2022-12-11 08:30:00 Dedrick Toth [facility] (NA, K, CL, CO2, Medical Branch GLUCOSE, BUN, CREATININE, CA) CBC WITH DIFF 2022-12-11 08:30:[address] [facility] N-TERMINAL PRO-BNP 2022-12-11 08:30:00 Dedrick Toth [facility] OSMOLALITY URINE 2022-12-11 03:24:00 Dedrick Toth [facility] SODIUM, URINE RANDOM 2022-12-11 03:24:00 Dedrick Toth [facility] URINALYSIS 2022-12-11 01:15:00 Singer [facility] HB ECG ROUTINE & RHYTHM 2022-12-11 00:38:04 Singer [facility] CT HEAD WO CONTRAST 2022-12-11 00:32:23 Louis Hong [facility] XR CHEST 1 VW 2022-12-11 00:29:20 Singer [facility] TROPONIN I 2022-12-11 00:08:00 Singer [facility] COMP. METABOLIC PANEL 2022-12-11 00:08:00 Louis Hong [facility] ([id number]) Medical Branch ETHANOL 2022-12-11 00:08:00 Singer [facility] CBC WITH DIFF 2022-12-11 00:08:00 Singer [facility] N-TERMINAL PRO-BNP 2022-12-11 00:08:00 Louis Hong [facility] LACTIC ACID WHOLE BLOOD 2022-12-11 00:03:00 Louis Hong [facility] AUTHORIZATION FOR 2022-12-09 05:01:00 Doctor Unassigned, No [facility] RELEASE OF PHI Name [facility] BASIC METABOLIC PANEL 2022-12-04 10:43:00 [facility] ([facility], K, CL, CO2, Medical Branch GLUCOSE, BUN, CREATININE, CA) CBC WITH DIFF 2022-12-04 10:43:[address] [facility] OSMOLALITY URINE 2022-12-03 17:05:00 [facility] SODIUM, URINE RANDOM 2022-12-03 17:05:00 [facility]akar [facility] 2022-12-03 10:20:[address] [facility] BASIC METABOLIC PANEL 2022-12-03 10:20:00 Ben [facility] (NA, K, CL, CO2, Medical Branch GLUCOSE, BUN, CREATININE, CA) CBC WITH DIFF 2022-12-03 10:20:[address] [facility] BASIC METABOLIC PANEL 2022-12-02 05:27:00 [facility] ([facility], [facility], CL, CO2, Medical Branch GLUCOSE, BUN, CREATININE, CA) CONSENT/REFUSAL FOR 2022-12-02 05:08:30 Doctor [facility]assigned, No [facility] Name [facility] HOSPITAL ADMISSION 2022-12-02 05:01:00 Doctor Unassigned, No [facility] COVID-19 (ID NOW RAPID 2022-12-01 13:01:00 Ernesto Piper [facility] TESTING) [facility] XR CHEST 1 VW 2022-12-01 12:40:[address] [facility] EKG-12 LEAD 2022-12-01 12:17:[address] [facility] ACUTE CARE ARTERIAL 2022-12-01 12:06:00 Marisol Devlin [facility] BLOOD GAS Medical Branch TROPONIN I 2022-12-01 11:51:[address] [facility] BASIC METABOLIC PANEL 2022-12-01 11:51:00 Marisol Devlin [facility] (NA, K, CL, CO2, Medical Branch GLUCOSE, BUN, CREATININE, CA) CBC WITH DIFF 2022-12-01 11:51:00 Marisol Devlin [facility] BASIC METABOLIC PANEL 2022-11-28 16:51:00 Leila Chapa [facility] (NA, K, CL, CO2, Medical Branch GLUCOSE, BUN, CREATININE, CA) URIC ACID 2022-11-28 08:14[facility]00 [facility]22-11-28 [facility] BASIC METABOLIC PANEL 2022-11-28 08:14:00 Leila Chapa [facility] (NA, K, CL, CO2, Medical Branch GLUCOSE, BUN, CREATININE, CA) CBC WITH DIFF 2022-11-28 08:14:00 María Diaz [facility] BASIC METABOLIC PANEL 2022-11-28 04:16:00 María Diaz [facility] (NA, K, CL, CO2, Medical Branch GLUCOSE, BUN, CREATININE, CA) BASIC METABOLIC PANEL 2022-11-28 00:33:00 Leila Chapa [facility] (NA, K, CL, CO2, Medical Branch GLUCOSE, BUN, CREATININE, CA) BASIC METABOLIC PANEL 2022-11-27 19:55:00 María Diaz [facility] (NA, K, CL, CO2, Medical Branch GLUCOSE, BUN, CREATININE, CA) MRSA / MSSA SCREEN BY 2022-11-27 09:21:00 María Diaz [facility] PCR, NARES [facility] OSMOLALITY, SERUM OR 2022-11-27 09:10:00 María Diaz [facility] PLASMA [facility] OSMOLALITY URINE 2022-11-27 09:04:[address] [facility] BASIC METABOLIC PANEL 2022-11-27 09:04:00 María Diaz [facility] (NA, K, CL, CO2, Medical Branch GLUCOSE, BUN, CREATININE, CA) URINE DRUG (IMMUNOASSAY) 2022-11-27 09:04:00 María Diaz [facility] DRUG Medical [facility] SCREEN URINALYSIS 2022-11-27 09:04:00 María Diaz [facility] CREATININE, URINE RANDOM 2022-11-27 09:04:00 María Diaz [facility] Center SODIUM, URINE RANDOM 2022-11-27 09:04:00 [facility] XR CHEST 1 VW 2022-11-27 06:15:54 Bessie Oswald [facility] MAGNESIUM 2022-11-27 05:33:00 María Diaz [facility] TROPONIN I 2022-11-27 05:33:00 Bessie Oswald [facility] COMP. METABOLIC PANEL 2022-11-27 05:33:00 Bessie Oswald [facility] ([id number]) [facility] ETHANOL 2022-11-27 05:33:00 Bessie Oswald [facility] CBC WITH DIFF 2022-11-27 05:33:00 Bessie Oswald [facility] GLYCOSYLATED HEMOGLOBIN 2022-11-27 05:33:00 Leila Chapa [facility] (A1C) [facility] N-TERMINAL PRO-BNP 2022-11-27 05:33:00 Bessie Oswald [facility] HB ECG ROUTINE & RHYTHM 2022-11-27 05:31:54 Bessie Oswald [facility] STRIP [facility] COMP. METABOLIC PANEL 2022-11-19 08:44:00 Iza Varma [facility] ([id number]) [facility] CBC WITH DIFF 2022-11-19 08:44:00 Iza Varma [facility] N-TERMINAL PRO-BNP 2022-11-19 08:44:00 Iza Varma [facility] BASIC METABOLIC PANEL 2022-11-11 10:52:00 Iza Eden [facility] (NA, K, CL, CO2, Medical Branch GLUCOSE, BUN, CREATININE, CA) CBC WITH DIFF 2022-11-11 10:52:00 Iza Eden [facility] BASIC METABOLIC PANEL 2022-11-11 02:16:00 [facility] (NA, K, CL, CO2, Medical Branch GLUCOSE, BUN, CREATININE, CA) BASIC METABOLIC PANEL 2022-11-10 22:45:00 [facility] (NA, K, CL, CO2, Medical Branch GLUCOSE, BUN, CREATININE, CA) BASIC METABOLIC PANEL 2022-11-10 17:27:00 [facility] ([facility], K, CL, CO2, Medical Branch GLUCOSE, BUN, CREATININE, CA) BASIC METABOLIC PANEL 2022-11-10 11:49:00 [facility] (NA, K, CL, CO2, Medical Branch GLUCOSE, BUN, CREATININE, CA) MAGNESIUM 2022-11-10 07:14:00 elvia [facility] BASIC METABOLIC PANEL 2022-11-10 07:14:00 [facility] (NA, K, CL, CO2, Medical Branch GLUCOSE, BUN, CREATININE, CA) CBC WITH DIFF 2022-11-10 07:14:00 [facility] XR CHEST 1 VW 2022-11-09 07:53:[address] [facility] LIPASE 2022-11-09 07:53:[address] [facility] TROPONIN I 2022-11-09 07:53:[address] [facility] COMP. METABOLIC PANEL 2022-11-09 07:53:00 Marisol Devlin [facility] ([id number]) Medical Branch CBC WITH DIFF 2022-11-09 07:53:[address] [facility] N-TERMINAL PRO-BNP 2022-11-09 07:53:00 Marisol Devlin [facility] ACUTE CARE ARTERIAL 2022-11-09 07:50:00 Marisol Devlin [facility] BLOOD GAS Medical Branch HB ECG ROUTINE & RHYTHM 2022-11-09 07:39:47 Marisol Devlin [facility] STRIP Medical Spicer ASSIGNMENT OF BENEFITS 2021-05-20 19:26:54 Doctor Unassigned, No [facility] POCT URINALYSIS AUTO 2020-12-18 19:04:00 Gokul Turner [facility] CT ABDOMEN PELVIS W 2020-12-12 17:25:03 Francisca Bryant [facility] CONTRAST [facility] BASIC METABOLIC PANEL 2020-12-12 16:47:00 Francisca Bryant [facility] (NA, K, CL, CO2, Medical Branch GLUCOSE, BUN, CREATININE, CA) CBC WITH DIFF 2020-12-12 16:47:00 Francisca Bryant [facility] URINALYSIS 2020-12-12 16:47:00 Francisca Bryant [facility] NOTICE OF PRIVACY 2020-12-12 16:28:57 Doctor Unassigned, No [facility] Medical Branch CONSENT/REFUSAL FOR 2020-12-12 16:28:23 Doctor Unassigned, No [facility] Branch POCT URINALYSIS AUTO 2020-12-08 18:56:00 Jeanette [facility] CONSENT/REFUSAL FOR 2020-12-08 18:26:17 Doctor Unassigned, No [facility] Name Medical Branch ASSIGNMENT OF BENEFITS 2020-12-08 18:25:58 Doctor Unassigned, No [facility] Medical Branch AUTHORIZATION FOR 2020-02-20 05:01:00 Doctor Unassigned, No [facility] RELEASE OF PHI [facility] Medical Branch NOTICE OF PRIVACY 2019-05-04 04:10:29 Doctor Unassigned, No [facility] Medical Branch CONSENT/REFUSAL FOR 2019-05-04 04:10:09 Doctor Unassigned, No [facility] [place] [facility] Name Medical Branch Encounters Start End Encounter Admission Attending Care Care Encounter Source Date/Time Date/Time Type Type Clinicians Facility Department ID 2021-07-19 Emergency [facility] [id number] Univers 08:46:33 ity of [facility] 2023-04-22 2023-04-22 Outpatient R NOMI MARY [facility] 10 [id number] Univers 00:00:00 00:00:00 ONMI MARY i ty of [facility] 2023-04-19 2023-04-19 Outpatient R NOMI MARY [facility] 10 [id number] Univers 10:00:00 10:53:24 NOMI MARY i ty of [facility] 2023-04-19 2023-04-19 Office Mathew [facility] 1.2.840.114 [id number] Univers 10:00:00 10:53:24 Visit Nomi DERAS 350.1.13.10 i [place] [id number] Ok sreekanth FONSECA 5 [facility] 2023-04-19 2023-04-19 Patient Marika Monge 1.2.840.114 10 [id number] Univers 00:00:00 00:00:00 Outreach E SHAIKH 350.1.13.10 i ty [place] [id number] [address] 2023-03-15 2023-03-19 Inpatient EM Rudy Xiao HCAWU INTE.02 [id number] [facility] 07:16:00 14:47:00 22 [facility] 2023-03-01 2023-03-01 Office [facility] 1.2.840.114 [id number] Univers 16:30:00 17:00:00 Visit Yurbuds 350.1.13.10 it y of [place] 4.2.7.2.686 [place] as JACKIE?BLEA [id number] Ok dical NATALEE 092 [facility] Hospital OFFICE [facility] 2023-03-01 2023-03-01 Outpatient R ADRIANO [facility] [id number] Univers 16:30:00 16:30:00 HERMINIA judge [facility] 2023-03-01 2023-03-01 Orders Doctor FRIEDMAN 1.2.840.114 [id number] Univers 00:00:00 00:00:00 Only Unassigned, ASHER 350.1.13.10 ity of [place] [facility] 4.2.7.2.686 [place] as [id number] [facility] 009 Branch 2023-03-01 2023-03-01 Refkhurram Goodwin [facility] 1.2.840.114 10 [id number] Univers 00:00:00 00:00:00 , Mily VICKIE 350.1.13.10 ity of [place] 4.2.7.2.686 [place] JACKIE?BLEA [id number] Ok sreekanth [address] MEDICAL OFFICE BUILDING 2023-02-21 2023-02-21 Transition GARY Frye 1.2.840.114 [id number] Univers 00:00:00 00:00:00 of Care Taylor B SHAIKH 350.1.13.10 it y of [place] [id number] [facility] 403 Branch 2023-02-15 2023-02-18 Inpatient X KARRI [facility] [place] [id number] Univers 14:41:00 16:11:00 TRAVIS ity of [facility] 2023-02-15 2023-02-18 [facility] Iza Varma [facility] 1.2.840.11 [id number] Univers 14:41:00 16:11:00 Encounter Francisca Bryant 350.1.13 .10 ity of Karri Travisgeorge PATHAK 4.2.7.2.686 [facility] [id number] [facility] 081 Branch 2023-02-07 2023-02-07 Emergency X [facility] ERT [id number] Univers 14:30:00 16:01:00 PRADIP ity of [facility] 2023-02-07 2023-02-07 Emergency [facility] 1.2.840.114 10 [id number] Univers 14:30:00 16:01:00 Pradip DERAS 350.1.13.10 ity of [facility] [place] [id number] [address] 2023-02-07 2023-02-07 Outpatient R CARL ORLANDO [facility] [id number] Univers 10:20:00 10:20:00 CARL ORLANDO deepa [facility] 2023-02-05 2023-02-05 Emergency [facility] ERT [id number] Univers 14:53:00 16:10:00 HERMINIA judge [facility] 2023-02-05 2023-02-05 Emergency [facility] 1.2.487.637 [id number] Univers 14:53:00 16:10:00 Herminia BRAEDEN 350.1.13.10 i ty of [place] 4.2.7.2.686 [facility] [id number] [address] 2023-02-04 2023-02-04 Emergency Sandie [facility] ERT [id number] Univers 15:26:00 16:25:00 FRANCISCA judge [facility] 2023-02-04 2023-02-04 Emergency [facility] 1.2.840.114 10 [id number] Univers 15:26:00 16:25:00 Francisca Trina DERAS 350.1.13.10 ity of [place] 4.2.7.2.686 [facility] [id number] [address] 2023-02-03 2023-02-03 Emergency Sandie [facility] ERT [id number] Univers 17:46:00 18:47:00 [place] judge [facility] 2023-02-03 2023-02-03 Emergency X [facility] ERT [id number] Univers 17:46:00 18:47:00 [place] judge [facility] 2023-02-03 2023-02-03 Emergency [facility] 1.2.020.167 [id number] Univers 17:46:00 18:47:00 Louis BRAEDEN 350.1.13.10 i ty of [place] 4.2.7.2.686 [facility] [id number] [address] 2023-02-03 2023-02-03 Emergency [facility] 1.2.105.521 [id number] Univers 12:43:00 15:04:00 Bessie DERAS 350.1.13.10 i ty of [facility] 4.2.7.2.686 [facility] [id number] [address] 2023-02-02 2023-02-02 Emergency X , [facility] ERT [id number] Univers 16:49:00 18:10:00 [place] judge [facility] 2023-02-02 2023-02-02 Emergency Hong, [facility] 1.2.027.159 [id number] Univers 16:49:00 18:10:00 Louis BRAEDEN 350.1.13.10 i ty of [place] 4.2.7.2.686 [facility] [id number] [address] 2023-01-31 2023-01-31 Emergency X KRISTIE, [facility] ERT [id number] Univers 13:55:00 16:50:00 RACHAEL [facility] 2023-01-31 2023-01-31 Emergency X KRISTIE, [facility] ERT [id number] Univers 13:55:00 16:50:00 RACHAEL [facility] 2023-01-31 2023-01-31 Emergency Kristie, [facility] 1.2.840.114 10 [id number] Univers 13:55:00 16:50:00 Rachael DERAS 350.1.13.10 i ty of [facility] 4.2.7.2.686 [facility] [id number] [address] 2023-01-31 2023-01-31 Emergency X VASUT, [facility] ERT [id number] Univers 11:11:00 12:12:00 LEOBARDO alfie [facility] 2023-01-31 2023-01-31 Emergency Maria Tut, [facility] 1.2.472.868 [id number] Univers 11:11:00 12:12:00 Leobardo DERAS 350.1.13.10 i ty of [facility] 4.2.7.2.686 [facility] [id number] [address] 2023-01-31 2023-01-31 Emergency [facility] 1.2.527.623 [id number] Univers 09:51:00 10:16:00 ANGLERADHA 350.1.13.10 i ty of [place] 4.2.7.2.686 [facility] [id number] [address] 2023-01-29 2023-01-29 Emergency X [facility] ERT [id number] Univers 08:08:00 10:00:00 HERMINIA [facility] 2023-01-29 2023-01-29 Emergency [facility] 1.2.368.010 [id number] Univers 08:08:00 10:00:00 Herminia BRAEDEN 350.1.13.10 i ty of [facility] 4.2.7.2.686 [facility] [id number] [address] 2023-01-27 2023-01-27 Emergency [facility] ERT [id number] Univers 04:50:00 07:03:00 BESSIE [facility] 2023-01-27 2023-01-27 [facility] 1.2.236.165 [id number] Univers 04:50:00 07:03:00 Bessie DERAS 350.1.13.10 i ty of [place] 4.2.7.2.[address] [place] [id number] 2023-01-27 2023-01-27 Telephone [facility] 1.2.961.462 [id number] Univers 00:00:00 00:00:00 Nomi DERAS 350.1.13.10 i ty of [place] 4.2.7.2.686 [facility] PROFESSIO [id number] Ok dical [address] 2023-01-24 2023-01-24 Emergency X [facility] ERT [id number] Univers 12:28:00 16:16:00 STEPHANIE [facility] 2023-01-24 2023-01-24 Emergency [facility] 1.2.710.438 [id number] Univers 12:28:00 16:16:00 Stephanie DERAS 350.1.13.10 i ty of [place] PATHAK 4.2.7.[address] [place] [address] [id number] [facility] [address] [place] 2023-01-23 2023-01-23 Emergency X [facility] ERT [id number] Univers 19:02:00 20:36:00 IZA judge [facility] 2023-01-23 2023-01-23 Emergency [facility] 1.2.828.320 [id number] Univers 19:02:00 20:36:00 Iza DERAS 350.1.13.10 i ty of [place] 4.2.7.2.686 [facility] [id number] [place] 019354 [place] 2023-01-22 2023-01-22 Emergency X [facility] ERT [id number] Univers 18:24:00 19:55:00 IZA deepa [facility] 2023-01-22 2023-01-22 Emergency [facility] 1.2.163.740 [id number] Univers 18:24:00 19:55:00 Izaosbaldo DERAS 350.1.13.10 i ty of [place] 4.2.7.2.686 [facility] [id number] [address] 2023-01-21 2023-01-21 Emergency X [facility] ERT [id number] Univers 14:20:00 18:14:00 [place] judge [facility] 2023-01-21 2023-01-21 Emergency [facility] 1.2.217.840 [id number] Univers 14:20:00 18:14:00 Louis DERAS 350.1.13.10 i ty of [place] 4.2.7.2.686 [facility] [id number] [facility] [address] 2023-01-20 2023-01-20 Transition GARY Frye 1.2.840.114 [id number] Univers 00:00:00 00:00:00 of Care Taylor SHAIKH 350.1.13.10 it y of [place] 4.2.7.2.686 [facility] [id number] [facility] 403 Branch 2023-01-19 2023-01-19 [facility] 1.2.84 0.114 [id number] Univers 01:15:00 19:40:00 Encounter Iza Varma MENDELRADHA 350.1.13.10 ity of [facility] 4.2.7.2.686 [facility] [phone] [address] 2023-01-17 2023-01-17 Emergency X [facility] ERT [id number] Univers 05:57:00 07:37:00 WAADONISLI ity [facility] 2023-01-17 2023-01-17 Emergency Pending sale to [facility] 1.2.342.336 [id number] Univers 05:57:00 07:37:00 Vladislavadonismax [facility] 350.1.13.10 ity of [place] 4.2.7.2.686 [facility] [id number] [address] 2023-01-17 2023-01-17 Emergency [facility] ERT [id number] Univers 05:57:00 07:37:00 VLADISLAVDAIJA ity [facility] 2023-01-10 2023-01-10 Letter [facility] 1.2.840.114 [id number] Univers 00:00:00 00:00:00 (Out) HerminiaSil[employer] 350.1.13.10 it y of [place] 4.2.7.2.686 Nelson as JACKIE?BLEA [id number] [address] MEDICAL OFFICE [facility] 2023-01-07 2023-01-07 Outpatient [facility] [id number] Univers 14:30:00 15:25:56 HERMINIA ity [facility] 2023-01-07 2023-01-07 Office [facility] 1.2.840.114 [id number] Univers 14:30:00 15:25:56 Visit Herminia [employer] 350.1.13.10 it y of [place] 4.2.7.2.686 [place] as JACKIE?BLEA [id number] [address] OFFICE [facility] 2022-12-26 2022-12-26 Emergency X [facility] ERT [id number] Univers 10:50:00 14:12:00 IZA ity of [facility] 2022-12-26 2022-12-26 Emergency [facility] 1.2.838.680 [id number] Univers 10:50:00 14:12:00 Iza S BRAEDEN 350.1.13.10 i ty of [facility] 4.2.7.2.[place] [id number] [facility] 084 Branch 2022-12-14 2022-12-14 Outpatient R NOMI MARY [facility] 10 [id number] Univers 11:30:00 11:30:00 NOMI MARY i ty of [facility] 2022-12-14 2022-12-14 Transition GARY Frye 1.2.840.114 [id number] Univers 00:00:00 00:00:00 of Care Taylor SHAIKH 350.1.13.10 it y of [place] [id number] [facility] 403 Branch 2022-12-10 2022-12-12 Outpatient X KARRI [facility] [place] [id number] Univers 18:49:00 14:35:00 TRAVIS ity [facility] 2022-12-10 2022-12-12 [facility] Louis Hong [facility] 1.2.840.1 14 [id number] Univers 18:49:00 14:35:00 Encounter Dedrick Toth 350.1.13. 10 ity of Travis Zeng 4.2.7.2.686 [facility] [id number] [facility] 081 Branch 2022-12-10 2022-12-10 Case [facility] 1.2.840.114 [id number] Univers 00:00:00 00:00:00 Management Nomi DERAS 350.1.13.10 ity of [facility] 4.2.[place].2.[place] [id number] [facility] 085 Branch [facility] 2022-12-10 2022-12-10 Transition GARY Caro 1.2.840.114 [id number] Univers 00:00:00 00:00:00 of Care Cecy SHAIKH 350.1.13.10 [place] of [place] [id number] [facility] 403 Branch 2022-12-09 2022-12-09 Orders Doctor ELDER 1.2.840.114 [id number] Univers 00:00:00 00:00:00 Only Unassigned, ASHER 350.1.13.10 ity of [place] [facility] 4.2.7.2.686 Nelson as [id number] [facility] 009 Branch 2022-12-06 2022-12-06 Transition GARY Frye 1.2.840.114 [id number] Univers 00:00:00 00:00:00 of Care Taylor Usman SHAIKH 350.1.13.10 it [place] [id number] [facility] 403 Branch 2022-12-02 2022-12-04 Hospital Carlo Maki [facility] 1.2.8 40.114 [id number] Univers 00:13:00 12:30:00 [facility] 350.1.13.10 ity of Clive Contreras [place]AR 4.2.7.2.686 [facility] [id number] [facility] 110 Branch (CLC) 2022-12-01 2022-12-01 Emergency U ERNESTO PIPER [facility] ERT [id number] Univers 05:32:00 09:08:00 ERNESTO PIPER ity of [facility] 2022-12-01 2022-12-01 Emergency Marisol Devlin [facility] 1.2.840 .114 [id number] Univers 05:32:00 09:08:00 Ernesto Piper 350.1.13.10 ity of Krissy Powers 4.2.7.2.686 [facility] [id number] [facility] 084 Branch 2022-12-01 2022-12-01 Emergency U ERNESTO PIPER [facility] ERT [id number] Univers 05:32:00 09:08:00 ERNESTO PIPER ity of [facility] 2022-11-26 2022-11-28 Outpatient [facility] [id number] Univers 22:55:00 13:50:00 LEILA itdeepa [facility] 2022-11-26 2022-11-28 [facility] Bessie Oswald [facility] 1.2.840.11 4 [id number] Univers 22:55:00 13:50:00 Encounter María Diaz 350.1.13.10 ity of Leila ChapaYEVTTE 4.2.7.2.686 [facility] [id number] [address] 2022-11-19 2022-11-19 Emergency X [facility] ERT [id number] Univers 02:17:00 05:12:00 [facility] 2022-11-19 2022-11-19 Emergency [facility] 1.2.010.104 [id number] Univers 02:17:00 05:12:00 Iza DERAS 350.1.13.10 i ty of [place] 4.2.7.2.686 [facility] [id number] [address] 2022-11-18 2022-11-18 Emergency X [facility] ERT [id number] Univers 18:52:00 20:29:00 FRANCISCA tieradeepa [facility] 2022-11-18 2022-11-18 Emergency [facility] 1.2.840.114 10 [id number] Univers 18:52:00 20:29:00 Francisca DERAS 350.1.13.10 ity of [facility] 4.2.7.2.686 [facility] [id number] [address] 2022-11-17 2022-11-17 Telephone [facility] 1.2.039.736 [id number] Univers 00:00:00 00:00:00 Nomi DERAS 350.1.13.10 i ty of [place] 4.2.7.2.686 [facility] [id number] Ok dical [facility] 2022-11-12 2022-11-12 Transition GARY Frye 1.2.840.114 [id number] Univers 00:00:00 00:00:00 of Mack SHAIKH 350.1.13.10 [place] [id number] [facility] 403 Branch 2022-11-09 2022-11-11 Inpatient X KARRI [facility] [place] [id number] Univers 01:32:00 13:35:00 TRAVIS ity of [facility] 2022-11-09 2022-11-11 Hospital Marisol Devlin [facility] 1.2.840. 114 [id number] Univers 01:32:00 13:35:00 Encounter Travis Zeng BRAEDEN 350.1.13.10 ity of [facility] 4.2.7.2.[place] [id number] [facility] 081 Branch 2021-05-22 2021-05-22 Telephone [facility] 1.2.479.297 [id number] Univers 00:00:00 00:00:00 Jeanette Deras 350.1.13.10 ity of [place] [id number] Ok dical nal 204 [facility] 2021-05-20 2021-05-20 Lead Systems Developer Remington, [facility] Lab Main [facility] 1.2.8 40.114 [id number] Univers 14:28:38 14:43:38 Visit Gokul Turner 350.1.13.10 ity of [place] [id number] Ok dical nal 353 [facility] 2021-05-20 2021-05-20 Outpatient R YUE [facility] [id number] Univers 14:30:00 14:30:00 GOKUL itdeepa [facility] 2021-05-20 2021-05-20 Orders Doctor FRIEDMAN 1.2.840.114 [id number] Univers 00:00:00 00:00:00 Only Unassigned, ASHER 350.1.13.10 ity of [place] [facility] 4.2.7.2.686 [place] as [id number] [facility] 009 Branch 2021-05-20 2021-05-20 Telephone [facility] 1.2.840.114 [id number] Univers 00:00:00 00:00:00 [facility] 350.1.13.10 i ty [id number] [phone] [address] 2020-12-29 2020-12-29 Office [facility] [id number] Univers 10:12:45 11:07:51 Visit [facility] [id number] i ty [id number] [phone] [address] 2020-12-29 2020-12-29 Outpatient R [facility] [id number] Univers 10:15:00 10:15:00 [facility] 2020-12-18 2020-12-18 Office [facility] [id number] [id number] Univers 13:36:17 14:58:35 Visit Rm, Adc Surg Spec Procedure [place] 3 50.1.13.10 ity [id number] [phone] [address] 2020-12-18 2020-12-18 [facility] [id number] Univers 14:00:00 14:00:00 [facility] 2020-12-16 2020-12-16 [facility] [id number] Univers 00:00:00 00:00:00 [facility] 2020-12-16 2020-12-16 Telephone [facility] [id number] Univers 00:00:00 00:00:00 Jeanette Deras [id number] ity [id number] [phone] [address] 2020-12-12 2020-12-12 Emergency [facility] 1.2.840.114 [id number] Univers 11:36:00 13:42:00 Francisca Deras [id number] [place]y [id number] [phone] [facility] [address] 2020-12-12 2020-12-12 Telephone [facility] [id number] Univers 00:00:00 00:00:00 Jeanette Deras [id number] it[id number] [phone] [facility] 204 [facility] 2020-12-08 2020-12-08 Office [facility] 1.2.840.114 [id number] Univers 13:28:10 14:09:14 Visit Jeanettelouise Deras 350.1.13.10 ity of [place] [phone] [address] 2020-12-08 2020-12-08 Outpatient R [facility] [id number] Univers 13:30:00 13:30:00 JEANETTE judge [facility] 2020-12-08 2020-12-08 Orders Doctor ELDER 1.2.840.114 [id number] Univers 00:00:00 00:00:00 Only Unassigned, ASHER 350.1.13.10 ity of [place] [facility] 4.2.7.2.686 [place] as [phone] [facility] [address] 2020-12-07 2020-12-07 Nurse ELDER Perez 1.2.840.114 [id number] Univers 00:00:00 00:00:00 Triage Herminia Chandler ASHER 350.1.13.10 ity of HOSPITAL 4.2.7.2.686 [place] as [id number] [facility] [address] 2020-06-19 2020-06-19 Outpatient Linda, HCA[facility]G [id number] [facility] 13:30:00 13:30:[address] 2020-02-20 2020-02-20 Orders Doctor ELDER 1.2.840.114 [id number] 00:00:00 00:00:00 Only Unassigned, ASHER 350.1.13.10 [facility] 4.2.7.2.686 [id number] 009 2020-02-20 2020-02-20 Orders Doctor ELDER 1.2.840.114 [id number] Univers 00:00:00 00:00:00 Only Unassigned, ASHER 350.1.13.10 ity of [place] [facility] 4.2.7.2.686 [place] [phone] [address] 2019-08-28 2019-08-28 Emergency X MARQUIS [facility] ERT [id number] Univers 08:25:33 11:54:00 HERMINIA judge [facility] 2019-08-24 2019-08-24 Emergency X [facility] ERT [id number] Univers 01:43:17 03:52:00 [place] judge [facility] 2019-05-03 2019-05-04 Emergency [facility] 1.2.100.337 [id number] 23:28:18 00:27:00 Ramesh Deras 350.1.13.10 [place] 4.2.7.2.686 [place] [id number] [facility] 2019-05-03 2019-05-04 Emergency [facility] 1.2.435.788 [id number] Univers 23:28:18 00:27:00 Ramesh Deras 350.1.13.10 i ty [facility] 4.2.7.2.686 [facility] [id number] [address] 2019-05-03 2019-05-03 Orders Doctor ELDER 1.2.840.114 [id number] 00:00:00 00:00:00 Only UnassignedASHER 350.1.13.10 [place] [facility] 4.2.7.2.686 [id number] 009 2019-05-03 2019-05-03 Orders Doctor ELDER 1.2.840.114 [id number] Univers 00:00:00 00:00:00 Only UnassignedASHER 350.1.13.10 ity of [facility] 4.2.7.2.686 [place] [id number] [address] Results Test Description Test Time Test Comments Results Result Comments Source GLUCOSE BEDSIDE TESTING 2023-03-19 11:23:00 Test Item Value Reference Range Interpretation Comme nts GLUCOSE BEDSIDE TESTING (test code = GLUBED) 112 MG/DL 60-99 H GLUCOSE BEDSIDE [id number] 07:35:00 Test Item Value Reference Range Interpretation Comments GLUCOSE BEDSIDE TESTING (test code 170 MG/DL 60-99 H = GLUBED) VITAMIN [id number] 15:12:00 Test Item Value Reference Range Interpretation Comments VITAMIN B12 (test code = VITB12) 738 pg/mL 239-931 N FOLIC [id number] 15:12:00 Test Item Value Reference Range Interpretation Comments FOLIC ACID (test 4.9 ng/mL REFERENCE V ALUES: code = FOLR) NORMAL: 2.76 - >20 ng/ML DEFICIENT: 1.04 - 2.79 ng/ML COMPREHENSIVE METABOLIC [id number] 11:38:00 Test Item Value Reference Range Interpretation [...] the recommended for keon for GFRby the [facility] for Adults.The GFR will [...] one of thoseassays per formed in our lab.Suzee lara testing perform ed at Ortho determined that [...] PHOSPHATASE (test code = ALKP) CBC W/AUTO [id number] 11:24:00 Test Item Value Reference Range Interpretation [...] 0.00 K/mm3 0.0-0.1 N NRBC#) ARTERIAL BLOOD [id number] 17:25:00 Test Item Value Reference Range Interpretation [...] and readback by MAC FRANCOIS, PA by DANIEL at 03/15/2023 4:56: 13 PM ABG DELIVERY (test N/C code = MARY) ABG TEMPERATURE (test 37.0 C See_Comment [Auto mated message] code = TEMPA) The system [email or web address] ch generated this result transmitted ref erence range: 37. The reference range was not used to int erpret this result as normal/abnormal . ABG SITE (test code = LR SITEA) ALLENS TEST (test Y CHECK code = ALLENS) FIO2 (test code = 36 % COHBGFFIO2) [id number] 12:29:00 Test Item Value Reference Range Interpretation Comments PHOSPHOROUS (test code = PHOS) 3.5 MG/DL 2.5-4.5 N ADD ON TEST? [id number] 12:29:00 Test Item Value Reference Range Interpretation Comments MAGNESIUM (test code = MAG) 1.8 MG/DL 1.6-2.3 N ADD ON TEST? YesARTERIAL BLOOD [id number] 12:26:00 Test Item Value Reference Range Interpretation [...] % 0.4-1.5 L = METHGB) VENOUS BLOOD [id number] 11:46:00 Test Item Value Reference Range Interpretation [...] % 0.4-1.5 L = METHGB) BASIC METABOLIC [id number] 07:06:00 Test Item Value Reference Range Interpretation [...] MG/DL 8.4-10.2 L CA) NT PRO-BRAIN NATRIURETIC [id number] 07:06:00 Test Item Value Reference Range Interpretation [...] causes* of NT-p roBNP elevation. -------- -------- [id number] 07:06:00 Test Item Value Reference Range Interpretation Comments TROPONIN-I (test code = TROPI) < 0.012 NG/ML 0.012-0.033 L - XR CHEST [id number] 06:59:00 [facility] : 1960 Sex: M Patient Name: THIERRY MONGE Unit No: [id number] EXAMS: CPT CODE: [id number] XR CHEST 1V 08570 EXAMINATION: - XR CHEST 1V HISTORY: Chest [...] t.[email or web address] Orig Print D/T: S: 03/15/2023 (0702) [facility] NAME: THIERRY MONGE [id number] PHYS: [place] [address] : 1960 AGE: 62 SEX: M LOC: ZPavanERS PHONE #: [phone] EXAM DATE: 03/15/2023 STATUS: REG ER FAX #: [phone] RADIOLOGY NO: PAGE 1 [facility] [id number] 06:42:00 Test Item Value Reference Range Interpretation [...] = 0.00 K/mm3 0.0-0.1 N NRBC#) TROPONIN [id number] 21:12:01 Test Item Value Reference Range Interpretation Comments TROPONIN I (test code = <=0.034 0313164827) OMAYRA (test code = OMAYRA) Reference (Normal) [...] biotin. Lab Interpretation Normal (test code = 67590-2) [facility]. METABOLIC PANEL ([id number])2023-02-15 21:00:57 Test Item Value Reference Range Interpretation Comments NA (test code = 133 mmol/L 135-145 L 9860698153) K (test code = 4.5 mmol/L 3.5-5.0 5992815071) CL (test code = 90 mmol/L 98-108 L 4313860401) CO2 TOTAL (test code = 40 mmol/L 23-31 H 2703465309) AGAP (test code = 3 2-16 6533309700) BUN (test code = 25 mg/dL 7-23 H 8881188310) GLUCOSE (test code = 107 mg/dL 70-110 6377339014) CREATININE (test code = 0.88 mg/dL 0.60-1.25 2894849479) TOTAL BILI (test code = 1.6 mg/dL 0.1-1.1 H 2468197468) CALCIUM (test code = 8.9 mg/dL 8.6-10.6 0194847780) T PROTEIN (test code = 6.1 g/dL 6.3-8.2 L 8563640863) ALBUMIN (test code = 3.7 g/dL 3.5-5.0 7796503841) ALK PHOS (test code = 56 U/L 34-122 8291909411) ALTv (test code = 14 U/L 5-50 1742-6) AST(SGOT) (test code = 12 U/L 13-40 L 3901423775) eGFR (test code = 87.2 mL/min/1.73m2 3269022114) OMAYRA (test code = OMAYRA) Association of [...] tests). Lab Interpretation Abnormal (test code = 25817-7) [facility] 21:00:57 Test Item Value Reference Range Interpretation Comments MAGNESIUM (test code = 2189320563) 2.0 mg/dL 1.7-2.4 Lab Interpretation (test code = Normal 87140-1) [facility] WITH [id number] 20:53:39 Test Item Value Reference Range Interpretation Comments WBC (test code = 9.03 See_Comment [Automated 1558-2) message] The sy stem which generated this result transmitted reference range : 4.20 - 10.70 10*3/?L. The reference range was not used to interpret this result as normal/abnormal . RBC (test code = 4.50 See_Comment [Automated 388-8) message] The sy stem which generated this [...] RDW-SD (test code = 50.1 fL 38.5-51.6 44141-1) RDW-CV (test code = 13.6 % 12.1-15.4 788-0) PLT (test code = 223 See_Comment [Automated 257-3) message] The sy stem which generated this result transmitted reference range : 150 - 328 10*3/ ?L. The reference r pasquale was not used to interpret this result as normal/abnormal . MPV (test code = 12.1 fL 9.8-13.0 91253-0) NRBC/100 WBC (test 0.0 See_Comment [Automat ed code = 4023995336) message] The system which generated this result transmitted reference range : 0.0 - 10.0 /100 WBCs. The refer ence range was not u sed to interpret th is result as normal/abnormal . NRBC x10^3 (test code See_Comment [Auto mated = 7230974706) message] The s ystem which generated this result transmitted reference range : 10*3/?L. The reference range was not used to interpret this result as normal/abnormal . GRAN MAT (NEUT) % 72.8 % (test code = 770-8) IMM GRAN % (test code 0.90 % = 2478929872) LYMPH % (test code = 17.7 % 736-9) MONO % (test code = 7.4 % 5905-5) EOS % (test code = 0.9 % 713-8) BASO % (test code = 0.3 % 706-2) GRAN MAT x10^3(ANC) 6.57 10*3/uL 1.99-6.95 (test code = 9444275289) IMM GRAN x10^3 (test 0.08 10*3/uL 0.00-0.06 H code = 3551987461) LYMPH x10^3 (test code 1.60 10*3/uL 1.09-3.23 = 731-0) MONO x10^3 (test code 0.67 10*3/uL 0.36-1.02 = 742-7) EOS x10^3 (test code = 0.08 10*3/uL 0.06-0.53 711-2) BASO x10^3 (test code 0.03 10*3/uL 0.01-0.09 = 704-7) Lab Interpretation Abnormal (test code = 93063-7) [facility] + LACTIC [id number] 20:11:20 Test Item Value Reference Range Interpretation Comments PH (test code = 7.33 7.32-7.42 2662269578) PCO2 ERVIN (test code = 75 See_Comment H [Auto mated 1302720461) message] The sy stem which generated this result transmitted reference range : 41 - 51 mmHg. The reference range was not used to interpret this result as normal/abnormal . PO2 ERVIN (test code = 20 See_Comment L [Autom ated 9183196130) message] The sy stem which generated this result transmitted reference range : 25 - 40 mmHg. The reference range was not used to interpret this result as normal/abnormal . HCO3 ERVIN (test code = 39 See_Comment H [Auto mated 2484187176) message] The sy stem which generated this result transmitted reference range : 24 - 28 mEq/L. The reference range was not used to interpret this result as normal/abnormal . AC VBE(BEAKER) (test 9.1 mEq/L code = 2968744232) THB ERVIN (test code = 15.9 g/dL 13.5-18.0 2350358131) %O2HB ERVIN (test code = 30.0 % 52.0-63.0 L 6511211672) %COHB ERVIN (test code = 4.1 % 0.0-1.5 H 8303504638) %METHB ERVIN (test code = 0.3 % 0.4-1.5 L 1049479417) VOL%O2 ERVIN (test code = 6.7 % 6.0-12.0 4932377614) NA (test code = 137 mmol/L 135-145 4581500614) K+ (test code = 4.5 mmol/L 3.5-5.0 7935199439) AC CA IONZ (test code = 4.60 mg/dL 4.50-5.30 3471688929) GLUCOSE (test code = 113 mg/dL 70-110 H 1082918468) LACTIC ACID (test code 1.65 mmol/L 0.50-2.20 = 9047447366) Lab Interpretation Abnormal (test code = 50754-2) [facility] [id number] 21:20:05 Test Item Value Reference Range Interpretation Comments TROPONIN I (test code = 0.005 ng/mL <=0.034 5240698420) OMAYRA (test code = OMAYRA) Reference (Normal) [...] biotin. Lab Interpretation Normal (test code = 41843-0) [facility] [id number] 21:17:24 Test Item Value Reference Range Interpretation Comments NT-proBNP (test code = 712 pg/mL <=125 H 9174163689) OMAYRA (test code = OMAYRA) Biotin has been reported to cause a negative bias, interpret results relative to patient's use of biotin. Lab Interpretation (test Abnormal code = 43436-5) [facility]2023-05-15 21:13:47 ALCOHOL<10mg/dL01/31/2023 4:13 PM [facility]<10 Kenseykg46-872 Toxic>100 Depression of [employer]>400 Fatalities [facility]ortedThe [facility]. METABOLIC PANEL (80259) 2023-01-31 21:10:01 Test Item Value Reference Range Interpretation Comments NA (test code = 142 mmol/L 135-145 7604315875) K (test code = 4.7 mmol/L 3.5-5.0 7302267999) CL (test code = 99 mmol/L 98-108 4534182096) CO2 TOTAL (test code = 37 mmol/L 23-31 H 3607576755) AGAP (test code = 6 2-16 2197225808) BUN (test code = 30 mg/dL 7-23 H 5999117918) GLUCOSE (test code = 100 mg/dL 70-110 2558533253) CREATININE (test code = 0.61 mg/dL 0.60-1.25 2851536426) TOTAL BILI (test code = 0.6 mg/dL 0.1-1.1 3114653786) CALCIUM (test code = 8.8 mg/dL 8.6-10.6 8449453066) T PROTEIN (test code = 5.9 g/dL 6.3-8.2 L 4202434640) ALBUMIN (test code = 3.5 g/dL 3.5-5.0 1998784201) ALK PHOS (test code = 42 U/L 34-122 3459309947) ALTv (test code = 16 U/L 5-50 1742-6) AST(SGOT) (test code = 12 U/L 13-40 L 7320574356) eGFR (test code = 133.1 mL/min/1.73m2 1369335501) OMAYRA (test code = OMAYRA) Association of [...] tests). Lab Interpretation Abnormal (test code = 31048-9) [facility] WITH [id number] 20:59:58 Test Item Value Reference Range Interpretation Comments WBC (test code = 13.02 See_Comment H [Automated 6690-2) message] The system which generated this result transmit anirudh reference range : 4.20 - 10.70 10*3/?L. The reference range was not used to interpret this result as normal/abnormal . RBC (test code = 4.09 See_Comment L [Automated 789-8) message] The system which generated [...] (test code = 61.6 fL 38.5-51.6 H 27783-1) RDW-CV (test code = 16.2 % 12.1-15.4 H 788-0) PLT (test code = 250 See_Comment [Automated 777-3) message] The system which generated this result transmit anirudh reference range : 150 - 328 10*3/ ?L. The reference range was not u sed to interpret th is result as normal/abnormal . MPV (test code = 10.5 fL 9.8-13.0 32008-0) NRBC/100 WBC (test 0.0 See_Comment [Automat ed code = 9176530135) message] The system which generated this result transmit anirudh reference range : 0.0 - 10.0 /100 WBCs. The reference range was not used to interpret this result as normal/abnormal . NRBC x10^3 (test code See_Comment [Auto mated = 0615106250) message] The system which generated this result transmit anirudh reference range : 10*3/?L. The reference range was not used to interpret this result as normal/abnormal . GRAN MAT (NEUT) % 90.9 % (test code = 770-8) IMM GRAN % (test code 1.20 % = 2880065811) LYMPH % (test code = 3.9 % 736-9) MONO % (test code = 3.8 % 5905-5) EOS % (test code = 0.0 % 713-8) BASO % (test code = 0.2 % 706-2) GRAN MAT x10^3(ANC) 11.83 10*3/uL 1.99-6.95 H (test code = 9731563165) IMM GRAN x10^3 (test 0.16 10*3/uL 0.00-0.06 H code = 5908670371) LYMPH x10^3 (test code 0.51 10*3/uL 1.09-3.23 L = 731-0) MONO x10^3 (test code 0.49 10*3/uL 0.36-1.02 = 742-7) EOS x10^3 (test code = 0.06-0.53 L 711-2) BASO x10^3 (test code 0.03 10*3/uL 0.01-0.09 = 704-7) Lab Interpretation Abnormal (test code = 25319-7) [facility] [id number] 11:16:36 Test Item Value Reference Range Interpretation Comments TROPONIN I (test code = 0.002 ng/mL <=0.034 4961426503) OMAYRA (test code = OMAYRA) Reference (Normal) [...] biotin. Lab Interpretation Normal (test code = 17084-5) [facility] [id number] 11:13:18 Test Item Value Reference Range Interpretation Comments NT-proBNP (test code = 112 pg/mL <=125 7457974052) OMAYRA (test code = OMAYRA) Biotin has been reported to cause a negative bias, interpret results relative to patient's use of biotin. Lab Interpretation (test Normal code = 37843-8) [facility] METABOLIC PANEL (NA, K, CL, CO2, GLUCOSE, BUN, CREATININE, CA)2023-01-27 11:04:56 Test Item Value Reference Range Interpretation Comments NA (test code = 136 mmol/L 135-145 0919499018) K (test code = 4.1 mmol/L 3.5-5.0 3587178277) CL (test code = 96 mmol/L 98-108 L 8549751987) CO2 TOTAL (test code = 34 mmol/L 23-31 H 8400414117) AGAP (test code = 6 2-16 0206774940) BUN (test code = 22 mg/dL 7-23 4108616049) GLUCOSE (test code = 117 mg/dL 70-110 H 8200826389) CREATININE (test code = 0.55 mg/dL 0.60-1.25 L 3117125765) CALCIUM (test code = 8.4 mg/dL 8.6-10.6 L 6909892636) eGFR (test code = 150.0 mL/min/1.73m2 1629352499) OMAYRA (test code = OMAYRA) Association of [...] tests). Lab Interpretation Abnormal (test code = 47033-2) [facility] WITH [id number] 10:38:33 Test Item Value Reference Range Interpretation Comments WBC (test code = 9.56 See_Comment [Automated 3790-2) message] The sy stem which generated this result transmitted reference range : 4.20 - 10.70 10*3/?L. The reference range was not used to interpret this result as normal/abnormal . RBC (test code = 4.31 See_Comment [Automated 349-8) message] The sy stem which generated this [...] (test code = 56.7 fL 38.5-51.6 H 19770-8) RDW-CV (test code = 15.3 % 12.1-15.4 788-0) PLT (test code = 220 See_Comment [Automated 777-3) message] The sy stem which generated this result transmitted reference range : 150 - 328 10*3/ ?L. The reference r pasquale was not used to interpret this result as normal/abnormal . MPV (test code = 10.6 fL 9.8-13.0 46491-9) NRBC/100 WBC (test 0.0 See_Comment [Automat ed code = 1156673793) message] The system which generated this result transmitted reference range : 0.0 - 10.0 /100 WBCs. The refer ence range was not u sed to interpret th is result as normal/abnormal . NRBC x10^3 (test code See_Comment [Auto mated = 3380422717) message] The s ystem which generated this result transmitted reference range : 10*3/?L. The reference range was not used to interpret this result as normal/abnormal . GRAN MAT (NEUT) % 60.0 % (test code = 770-8) IMM GRAN % (test code 0.70 % = 7181442528) LYMPH % (test code = 26.5 % 736-9) MONO % (test code = 11.4 % 5905-5) EOS % (test code = 0.9 % 713-8) BASO % (test code = 0.5 % 706-2) GRAN MAT x10^3(ANC) 5.73 10*3/uL 1.99-6.95 (test code = 4378577248) IMM GRAN x10^3 (test 0.07 10*3/uL 0.00-0.06 H code = 4284134975) LYMPH x10^3 (test code 2.53 10*3/uL 1.09-3.23 = 731-0) MONO x10^3 (test code 1.09 10*3/uL 0.36-1.02 H = 742-7) EOS x10^3 (test code = 0.09 10*3/uL 0.06-0.53 711-2) BASO x10^3 (test code 0.05 10*3/uL 0.01-0.09 = 704-7) Lab Interpretation Abnormal (test code = 76821-4) [facility]MON[facility], [id number] 18:51:59 Test Item Value Reference Range Interpretation Comments AMMONIA (test code = 9732845972) 9-33 L Lab Interpretation (test code = Abnormal 16322-0) [facility] + LACTIC [id number] 18:40:53 Test Item Value Reference Range Interpretation Comments PH (test code = 2) 7.43 7.35-7.45 PCO2 (test code = 53 See_Comment H [Automate d 3062451248) message] The sy stem which generated this result transmitted reference range : 35 - 45 mmHg. The reference range was not used to interpret this result as normal/abnormal . PO2 (test code = 49 See_Comment L [Automated 8439074904) message] The sy stem which generated this result transmitted reference range : 80 - 100 mmHg. The reference range was not used to interpret this result as normal/abnormal . HCO3 (test code = 34 See_Comment H [Automate d 5369914730) message] The sy stem which generated this result transmitted reference range : 22 - 26 mEq/L. The reference range was not used to interpret this result as normal/abnormal . BE (test code = 7.8 See_Comment H [Automated 7108366367) message] The sy stem which generated this result transmitted reference range : -3.0 - 3.0 mEq/ L. The reference r pasquale was not used to interpret this result as normal/abnormal . LACTIC ACID (test code 0.92 mmol/L 0.50-2.20 = 1648985962) Lab Interpretation Abnormal (test code = 74078-1) [facility]rop[facility] [id number] 18:28:26 Test Item Value Reference Range Interpretation Comments TROPONIN I (test code = 0.003 ng/mL <=0.034 1187120273) OMAYRA (test code = OMAYRA) Reference (Normal) [...] biotin. Lab Interpretation Normal (test code = 55646-5) [facility] [id number] 18:25:29 Test Item Value Reference Range Interpretation Comments NT-proBNP (test code = 376 pg/mL <=125 H 0379774643) OMAYRA (test code = OMAYRA) Biotin has been reported to cause a negative bias, interpret results relative to patient's use of biotin. Lab Interpretation (test Abnormal code = 99787-6) [facility] Metabolic Panel (64503)2023-01-24 18:24:03 Test Item Value Reference Range Interpretation Comments NA (test code = 135 mmol/L 135-145 8793670922) K (test code = 4.0 mmol/L 3.5-5.0 0790456019) CL (test code = 90 mmol/L 98-108 L 8834533414) CO2 TOTAL (test code = 43 mmol/L 23-31 H 8884223684) AGAP (test code = 2 2-16 3320369644) BUN (test code = 12 mg/dL 7-23 0067275547) GLUCOSE (test code = 92 mg/dL 70-110 4026849869) CREATININE (test code = 0.58 mg/dL 0.60-1.25 L 6598590251) TOTAL BILI (test code = 1.3 mg/dL 0.1-1.1 H 7741234584) CALCIUM (test code = 8.6 mg/dL 8.6-10.6 5602266098) T PROTEIN (test code = 6.0 g/dL 6.3-8.2 L 4589047432) ALBUMIN (test code = 3.6 g/dL 3.5-5.0 2564349765) ALK PHOS (test code = 52 U/L 34-122 9204952384) ALTv (test code = 17 U/L 5-50 1742-6) AST(SGOT) (test code = 10 U/L 13-40 L 5890525119) eGFR (test code = 141.1 mL/min/1.73m2 7130194918) OMAYRA (test code = OMAYRA) Association of [...] tests). Lab Interpretation Abnormal (test code = 65807-5) [facility]2023-[facility]-08 18:23:38 ALCOHOL<10mg/dL01/24/2023 1:23 PM [facility] Hbnlrmtm86-974 Toxic>100 Depression of [employer]>400 Fatalities [facility]UnCreight[facility] with [id number] 18:09:00 Test Item Value Reference Range Interpretation Comments WBC (test code = 7.84 See_Comment [Automated 2941-2) message] The sy stem which generated this result transmitted reference range : 4.20 - 10.70 10*3/?L. The reference range was not used to interpret this result as normal/abnormal . RBC (test code = 4.46 See_Comment [Automated 894-8) message] The sy stem which generated this [...] (test code = 59.7 fL 38.5-51.6 H 63944-3) RDW-CV (test code = 15.8 % 12.1-15.4 H 788-0) PLT (test code = 239 See_Comment [Automated 777-3) message] The sy stem which generated this result transmitted reference range : 150 - 328 10*3/ ?L. The reference r pasquale was not used to interpret this result as normal/abnormal . MPV (test code = 10.5 fL 9.8-13.0 84050-5) NRBC/100 WBC (test 0.0 See_Comment [Automat ed code = 0663543292) message] The system which generated this result transmitted reference range : 0.0 - 10.0 /100 WBCs. The refer ence range was not u sed to interpret th is result as normal/abnormal . NRBC x10^3 (test code See_Comment [Auto mated = 8246987718) message] The s ystem which generated this result transmitted reference range : 10*3/?L. The reference range was not used to interpret this result as normal/abnormal . GRAN MAT (NEUT) % 64.5 % (test code = 770-8) IMM GRAN % (test code 0.40 % = 1004065530) LYMPH % (test code = 23.1 % 736-9) MONO % (test code = 9.8 % 5905-5) EOS % (test code = 1.8 % 713-8) BASO % (test code = 0.4 % 706-2) GRAN MAT x10^3(ANC) 5.06 10*3/uL 1.99-6.95 (test code = [id number]) IMM GRAN x10^3 (test 0.03 10*3/uL 0.00-0.06 code = 9154526707) LYMPH x10^3 (test code 1.81 10*3/uL 1.09-3.23 = 731-0) MONO x10^3 (test code 0.77 10*3/uL 0.36-1.02 = 742-7) EOS x10^3 (test code = 0.14 10*3/uL 0.06-0.53 711-2) BASO x10^3 (test code 0.03 10*3/uL 0.01-0.09 = 704-7) Lab Interpretation Abnormal (test code = 12497-3) [facility]. METABOLIC PANEL (47950)2023-01-21 21:33:50 Test Item Value Reference Range Interpretation Comments NA (test code = 136 mmol/L 135-145 [id number]) K (test code = 4.3 mmol/L 3.5-5.0 4276958485) CL (test code = 95 mmol/L 98-108 L 1960104093) CO2 TOTAL (test code = 38 mmol/L 23-31 H 2387890536) AGAP (test code = 3 2-16 3694829081) BUN (test code = 17 mg/dL 7-23 4684103075) GLUCOSE (test code = 102 mg/dL 70-110 5314241210) CREATININE (test code = 0.62 mg/dL 0.60-1.25 1039339261) TOTAL BILI (test code = 0.8 mg/dL 0.1-1.9 8432547878) CALCIUM (test code = 7.8 mg/dL 8.6-10.6 L 0505342913) T PROTEIN (test code = 4.9 g/dL 6.3-8.2 L 1503495835) ALBUMIN (test code = 3.0 g/dL 3.5-5.0 L 9538020744) ALK PHOS (test code = 45 U/L 34-122 8938057371) ALTv (test code = 13 U/L 5-50 1742-6) AST(SGOT) (test code = 11 U/L 13-40 L 5922095261) eGFR (test code = 130.6 mL/min/1.73m2 8872851981) OMAYRA (test code = OMAYRA) Association of [...] tests). Lab Interpretation Abnormal (test code = 25723-1) [facility] [id number] 21:11:45 Test Item Value Reference Range Interpretation Comments TROPONIN I (test code = 0.019 ng/mL <=0.034 1275947568) OMAYRA (test code = OMAYRA) Reference (Normal) [...] biotin. Lab Interpretation Normal (test code = 26958-7) [facility] [id number] 21:08:47 Test Item Value Reference Range Interpretation Comments NT-proBNP (test code = 266 pg/mL <=125 H Hemol yzed 8845551814) specimen OMAYRA (test code = OMAYRA) Biotin has been reported to cause a negative bias, interpret results relative to patient's use of biotin. Lab Interpretation Abnormal (test code = 31370-1) [facility] WITH [id number] 20:40:24 Test Item Value Reference Range Interpretation [...] (test code = 60.4 fL 38.5-51.6 H 17891-1) RDW-CV (test code = 16.2 % 12.1-15.4 H 788-0) PLT (test code = 215 See_Comment [Automated 777-3) message] The sy stem which generated this result transmitted reference range : 150 - 328 10*3/ ?L. The reference r pasquale was not used to interpret this result as normal/abnormal . MPV (test code = 10.9 fL 9.8-13.0 27940-2) NRBC/100 WBC (test 0.0 See_Comment [Automat ed code = 6111504698) message] The system which generated this result transmitted reference range : 0.0 - 10.0 /100 WBCs. The refer ence range was not u sed to interpret th is result as normal/abnormal . NRBC x10^3 (test code See_Comment [Auto mated = 5683479676) message] The s ystem which generated this result transmitted reference range : 10*3/?L. The reference range was not used to interpret this result as normal/abnormal . GRAN MAT (NEUT) % 75.4 % (test code = 770-8) IMM GRAN % (test code 0.40 % = 1812194943) LYMPH % (test code = 15.3 % 736-9) MONO % (test code = 7.7 % 5905-5) EOS % (test code = 0.9 % 713-8) BASO % (test code = 0.3 % 706-2) GRAN MAT x10^3(ANC) 5.11 10*3/uL 1.99-6.95 (test code = 6260244762) IMM GRAN x10^3 (test 0.03 10*3/uL 0.00-0.06 code = 5464724726) LYMPH x10^3 (test code 1.04 10*3/uL 1.09-3.23 L = 731-0) MONO x10^3 (test code 0.52 10*3/uL 0.36-1.02 = 742-7) EOS x10^3 (test code = 0.06 10*3/uL 0.06-0.53 711-2) BASO x10^3 (test code 0.01-0.09 = 704-7) Lab Interpretation Abnormal (test code = 09788-9) [facility] Dax-[id number] 08:49:53 Test Item Value Reference Range Interpretation Comments NT-proBNP (test code = 158 pg/mL <=125 H 9685156065) OMAYRA (test code = OMAYRA) Biotin has been reported to cause a negative bias, interpret results relative to patient's use of biotin. Lab Interpretation (test Abnormal code = 59599-4) [facility]-[id number] 08:44:10 Test Item Value Reference Interpretation Comments Range D-DIMER (test code = See_Comment [Autom ated 3583022081) message] The system which generated this result [...] diagnosis. Lab Interpretation Normal (test code = 15574-7) [facility] (NA, K, CL, CO2, GLUCOSE, BUN, CREATININE, [place])2023-01-19 08:41:13 Test Item Value Reference Range Interpretation Comments NA (test code = 134 mmol/L 135-145 L 8868894245) K (test code = 5.3 mmol/L 3.5-5.0 H 0794212183) CL (test code = 91 mmol/L 98-108 L 9898162540) CO2 TOTAL (test code = 40 mmol/L 23-31 H 6542366089) AGAP (test code = 3 2-16 1665994831) BUN (test code = 14 mg/dL 7-23 9831971356) GLUCOSE (test code = 125 mg/dL 70-110 H 7664011970) CREATININE (test code = 0.64 mg/dL 0.60-1.25 7970789392) CALCIUM (test code = 8.5 mg/dL 8.6-10.6 L 0645755423) eGFR (test code = 125.9 mL/min/1.73m2 2624157623) OMAYRA (test code = OMAYRA) Association of [...] tests). Lab Interpretation Abnormal (test code = 13892-5) [facility] WITH [id number] 08:27:33 Test Item Value Reference Range Interpretation Comments WBC (test code = 10.04 See_Comment [Automated 7911-2) message] The sy stem which generated this result transmitted reference range : 4.20 - 10.70 10*3/?L. The reference range was not used to interpret this result as normal/abnormal . RBC (test code = 4.35 See_Comment [Automated 568-8) message] The sy stem which generated this [...] (test code = 58.4 fL 38.5-51.6 H 78900-4) RDW-CV (test code = 15.9 % 12.1-15.4 H 788-0) PLT (test code = 211 See_Comment [Automated 777-3) message] The sy stem which generated this result transmitted reference range : 150 - 328 10*3/ ?L. The reference r pasquale was not used to interpret this result as normal/abnormal . MPV (test code = 10.2 fL 9.8-13.0 23209-8) NRBC/100 WBC (test 0.0 See_Comment [Automat ed code = 9876852574) message] The system which generated this result transmitted reference range : 0.0 - 10.0 /100 WBCs. The refer ence range was not u sed to interpret th is result as normal/abnormal . NRBC x10^3 (test code See_Comment [Auto mated = 6630188918) message] The s ystem which generated this result transmitted reference range : 10*3/?L. The reference range was not used to interpret this result as normal/abnormal . GRAN MAT (NEUT) % 81.2 % (test code = 770-8) IMM GRAN % (test code 0.50 % = 6456124094) LYMPH % (test code = 10.1 % 736-9) MONO % (test code = 7.5 % 5905-5) EOS % (test code = 0.5 % 713-8) BASO % (test code = 0.2 % 706-2) GRAN MAT x10^3(ANC) 8.16 10*3/uL 1.99-6.95 H (test code = 4276484345) IMM GRAN x10^3 (test 0.05 10*3/uL 0.00-0.06 code = 1878245523) LYMPH x10^3 (test code 1.01 10*3/uL 1.09-3.23 L = 731-0) MONO x10^3 (test code 0.75 10*3/uL 0.36-1.02 = 742-7) EOS x10^3 (test code = 0.05 10*3/uL 0.06-0.53 L 711-2) BASO x10^3 (test code 0.01-0.09 = 704-7) Lab Interpretation Abnormal (test code = 83713-8) [facility] [id number] 12:09:33 Test Item Value Reference Range Interpretation Comments TROPONIN I (test code = 0.004 ng/mL <=0.034 0477691200) OMAYRA (test code = OMAYRA) Reference (Normal) [...] biotin. Lab Interpretation Normal (test code = 58280-1) [facility] [id number] 12:06:16 Test Item Value Reference Range Interpretation Comments NT-proBNP (test code = 135 pg/mL <=125 H 6561813101) OMAYRA (test code = OMAYRA) Biotin has been reported to cause a negative bias, interpret results relative to patient's use of biotin. Lab Interpretation (test Abnormal code = 30850-6) [facility] Metabolic Panel (60463)2023-01-17 11:57:36 Test Item Value Reference Range Interpretation Comments NA (test code = 133 mmol/L 135-145 L 3751656586) K (test code = 5.0 mmol/L 3.5-5.0 5996281241) CL (test code = 91 mmol/L 98-108 L 5578167555) CO2 TOTAL (test code = 33 mmol/L 23-31 H 0839598511) AGAP (test code = 9 2-16 0067236540) BUN (test code = 10 mg/dL 7-23 6870203476) GLUCOSE (test code = 104 mg/dL 70-110 8416784018) CREATININE (test code = 0.63 mg/dL 0.60-1.25 4668010027) TOTAL BILI (test code = 1.2 mg/dL 0.1-1.1 H 4890440026) CALCIUM (test code = 9.0 mg/dL 8.6-10.6 1703599969) T PROTEIN (test code = 6.9 g/dL 6.3-8.2 0180758748) ALBUMIN (test code = 4.4 g/dL 3.5-5.0 1517221439) ALK PHOS (test code = 76 U/L 34-122 6461104705) ALTv (test code = 13 U/L 5-50 1742-6) AST(SGOT) (test code = 13 U/L 13-40 8870826463) eGFR (test code = 128.2 mL/min/1.73m2 8629068324) OMAYRA (test code = OMAYRA) Association of [...] tests). Lab Interpretation Abnormal (test code = 99194-4) [facility] with [id number] 11:30:52 Test Item Value Reference Range Interpretation Comments WBC (test code = 9.66 See_Comment [Automated 6690-2) message] The sy stem [...] (test code = 56.6 fL 38.5-51.6 H 68579-1) RDW-CV (test code = 15.4 % 12.1-15.4 788-0) PLT (test code = 261 See_Comment [Automated 777-3) message] The sy stem which generated this result transmitted reference range : 150 - 328 10*3/ ?L. The reference r pasquale was not used to interpret this result as normal/abnormal . MPV (test code = 10.4 fL 9.8-13.0 69194-1) NRBC/100 WBC (test 0.0 See_Comment [Automat ed code = 5277433977) message] The system which generated this result transmitted reference range : 0.0 - 10.0 /100 WBCs. The refer ence range was not u sed to interpret th is result as normal/abnormal . NRBC x10^3 (test code See_Comment [Auto mated = 9375467534) message] The s ystem which generated this result transmitted reference range : 10*3/?L. The reference range was not used to interpret this result as normal/abnormal . GRAN MAT (NEUT) % 58.9 % (test code = 770-8) IMM GRAN % (test code 0.40 % = 5644333474) LYMPH % (test code = 28.6 % 736-9) MONO % (test code = 10.5 % 5905-5) EOS % (test code = 0.9 % 713-8) BASO % (test code = 0.7 % 706-2) GRAN MAT x10^3(ANC) 5.69 10*3/uL 1.99-6.95 (test code = 5585384227) IMM GRAN x10^3 (test 0.04 10*3/uL 0.00-0.06 code = 0084664571) LYMPH x10^3 (test code 2.76 10*3/uL 1.09-3.23 = 731-0) MONO x10^3 (test code 1.01 10*3/uL 0.36-1.02 = 742-7) EOS x10^3 (test code = 0.09 10*3/uL 0.06-0.53 711-2) BASO x10^3 (test code 0.07 10*3/uL 0.01-0.09 = 704-7) Lab Interpretation Abnormal (test code = 53489-4) [facility] [id number] 10:20:57 Test Item Value Reference Range Interpretation Comments NT-proBNP (test code = 473 pg/mL <=125 H 4172227173) OMAYRA (test code = OMAYRA) Biotin has been reported to cause a negative bias, interpret results relative to patient's use of biotin. Lab Interpretation (test Abnormal code = 07691-1) [facility]kinLIPID PANEL (66917)(TOTAL CHOLESTEROL, TRIGLYCERIDES, HDL)2022-12-12 10:18:39 Test Item Value Reference Range Interpretation Comments CHOL (test code = 3318483850) 133 mg/dL 120-200 HDL (test code = 4286966908) 38 mg/dL >=40 L HDLC RATIO (test code = 3654601219) 3.5 <=5.0 TRIG (test code = 4185718258) 57 mg/dL 30-170 LDL CHOL (test code = 53646-0) 84 mg/dL <=160 VLDL (test code = 3476779043) 11 mg/dL 5-60 Lab Interpretation (test code = Abnormal 46863-8) [facility]2023-03-26 10:18:19 Test Item Value Reference Range Interpretation Comments MAGNESIUM (test code = 2067728353) 2.0 mg/dL 1.7-2.4 Lab Interpretation (test code = Normal 15048-8) [facility] METABOLIC PANEL (NA, K, CL, CO2, GLUCOSE, BUN, CREATININE, CA)2022-12-12 10:18:14 Test Item Value Reference Range Interpretation Comments NA (test code = 130 mmol/L 135-145 L 7743374849) K (test code = 3.7 mmol/L 3.5-5.0 2019663012) CL (test code = 89 mmol/L 98-108 L 7734241047) CO2 TOTAL (test code = 37 mmol/L 23-31 H 1236083835) AGAP (test code = 4 2-16 1817773674) BUN (test code = 13 mg/dL 7-23 3879785620) GLUCOSE (test code = 120 mg/dL 70-110 H 3479258670) CREATININE (test code = 0.56 mg/dL 0.60-1.25 L 9978347182) CALCIUM (test code = 8.3 mg/dL 8.6-10.6 L 0532128427) eGFR (test code = 146.9 mL/min/1.73m2 7566658181) OMAYRA (test code = OMAYRA) Association of [...] tests). Lab Interpretation Abnormal (test code = 09117-5) [facility]2023-03-25 00:54:58 ALCOHOL<10mg/dL12/10/2022 7:54 PM [facility]<10 Gfrncmsp29-630 Toxic>100 Depression of [employer]>400 Fatalities ReportedSt. [facility]kinTROPONIN [id number] 00:50:14 Test Item Value Reference Range Interpretation Comments TROPONIN I (test code = 0.006 ng/mL <=0.034 8058893092) OMAYRA (test code = OMAYRA) Reference (Normal) [...] biotin. Lab Interpretation Normal (test code = 94490-8) [facility] [id number] 00:47:12 Test Item Value Reference Range Interpretation Comments NT-proBNP (test code = 291 pg/mL <=125 H 5395701957) OMAYRA (test code = OMAYRA) Biotin has been reported to cause a negative bias, interpret results relative to patient's use of biotin. Lab Interpretation (test Abnormal code = 07105-9) [facility]. METABOLIC PANEL (21239)2022-12-11 00:41:12 Test Item Value Reference Range Interpretation Comments NA (test code = 126 mmol/L 135-145 L 2963670589) K (test code = 4.0 mmol/L 3.5-5.0 4596187057) CL (test code = 82 mmol/L 98-108 L 4041431213) CO2 TOTAL (test code = 40 mmol/L 23-31 H 4184812379) AGAP (test code = 4 2-16 0300481119) BUN (test code = 16 mg/dL 7-23 4884406510) GLUCOSE (test code = 97 mg/dL 70-110 3651197356) CREATININE (test code = 0.67 mg/dL 0.60-1.25 9866092954) TOTAL BILI (test code = 0.8 mg/dL 0.1-1.9 4455573060) CALCIUM (test code = 8.5 mg/dL 8.6-10.6 L 8872899579) T PROTEIN (test code = 5.9 g/dL 6.3-8.2 L 4544428863) ALBUMIN (test code = 3.5 g/dL 3.5-5.0 5908346221) ALK PHOS (test code = 49 U/L 34-122 3234119896) ALTv (test code = 18 U/L 5-50 1742-6) AST(SGOT) (test code = 11 U/L 13-40 L 5383803347) eGFR (test code = 119.4 mL/min/1.73m2 3844414151) OMAYRA (test code = OMAYRA) Association of [...] tests). Lab Interpretation Abnormal (test code = 92812-0) [facility] WITH [id number] 00:29:08 Test Item Value Reference Range Interpretation Comments WBC (test code = 10.15 See_Comment [Automated 0264-2) message] The sy stem which generated this result transmitted reference range : 4.20 - 10.70 10*3/?L. The reference range was not used to interpret this result as normal/abnormal . RBC (test code = 4.52 See_Comment [Automated 661-8) message] The sy stem which generated this [...] RDW-SD (test code = 46.7 fL 38.5-51.6 86869-4) RDW-CV (test code = 13.6 % 12.1-15.4 788-0) PLT (test code = 263 See_Comment [Automated 777-3) message] The sy stem which generated this result transmitted reference range : 150 - 328 10*3/ ?L. The reference r pasquale was not used to interpret this result as normal/abnormal . MPV (test code = 9.7 fL 9.8-13.0 L 43578-4) NRBC/100 WBC (test 0.0 See_Comment [Automat ed code = 5353657806) message] The system which generated this result transmitted reference range : 0.0 - 10.0 /100 WBCs. The refer ence range was not u sed to interpret th is result as normal/abnormal . NRBC x10^3 (test code See_Comment [Auto mated = 0842110576) message] The s ystem which generated this result transmitted reference range : 10*3/?L. The reference range was not used to interpret this result as normal/abnormal . GRAN MAT (NEUT) % 71.6 % (test code = 770-8) IMM GRAN % (test code 0.90 % = 7611978824) LYMPH % (test code = 17.6 % 736-9) MONO % (test code = 8.7 % 5905-5) EOS % (test code = 1.0 % 713-8) BASO % (test code = 0.2 % 706-2) GRAN MAT x10^3(ANC) 7.27 10*3/uL 1.99-6.95 H (test code = 7672965715) IMM GRAN x10^3 (test 0.09 10*3/uL 0.00-0.06 H code = 5548677493) LYMPH x10^3 (test code 1.79 10*3/uL 1.09-3.23 = 731-0) MONO x10^3 (test code 0.88 10*3/uL 0.36-1.02 = 742-7) EOS x10^3 (test code = 0.10 10*3/uL 0.06-0.53 711-2) BASO x10^3 (test code 0.01-0.09 = 704-7) Lab Interpretation Abnormal (test code = 83676-4) [facility]kinLactic Acid Whole [id number] 00:14:48 Test Item Value Reference Range Interpretation Comments LACTIC ACID (test code = 1.30 mmol/L 0.50-2.20 7456424499) Lab Interpretation (test code = Normal 31548-7) [facility] (NA, K, CL, CO2, GLUCOSE, BUN, CREATININE, [place])2022-12-04 11:06:33 Test Item Value Reference Range Interpretation Comments NA (test code = 123 mmol/L 135-145 L 9970444887) K (test code = 3.8 mmol/L 3.5-5.0 5508125464) CL (test code = 86 mmol/L 98-108 L 4128388144) CO2 TOTAL (test code = 36 mmol/L 23-31 H 5914100358) AGAP (test code = 1 2-16 L 8429121210) BUN (test code = 22 mg/dL 7-23 3629504676) GLUCOSE (test code = 195 mg/dL 70-110 H 3544752869) CREATININE (test code = 0.76 mg/dL 0.60-1.25 5170567502) CALCIUM (test code = 8.2 mg/dL 8.6-10.6 L 1559627876) eGFR (test code = 103.3 mL/min/1.73m2 3348302336) OMAYRA (test code = OMAYRA) Association of [...] tests). Lab Interpretation Abnormal (test code = 97927-9) [facility] WITH [id number] 10:54:29 Test Item Value Reference Range Interpretation Comments WBC (test code = 8.54 See_Comment [Automated 0023-2) message] The sy stem which generated this result transmitted reference range : 4.20 - 10.70 10*3/?L. The reference range was not used to interpret this result as normal/abnormal . RBC (test code = 4.17 See_Comment L [Automated 539-8) message] The sy stem which generated this [...] RDW-SD (test code = 44.1 fL 38.5-51.6 94196-0) RDW-CV (test code = 13.6 % 12.1-15.4 788-0) PLT (test code = 247 See_Comment [Automated 777-3) message] The sy stem which generated this result transmitted reference range : 150 - 328 10*3/ ?L. The reference r pasquale was not used to interpret this result as normal/abnormal . MPV (test code = 9.5 fL 9.8-13.0 L 78277-8) NRBC/100 WBC (test 0.0 See_Comment [Automat ed code = 9198470648) message] The system which generated this result transmitted reference range : 0.0 - 10.0 /100 WBCs. The refer ence range was not u sed to interpret th is result as normal/abnormal . NRBC x10^3 (test code See_Comment [Auto mated = 7581829156) message] The s ystem which generated this result transmitted reference range : 10*3/?L. The reference range was not used to interpret this result as normal/abnormal . GRAN MAT (NEUT) % 93.0 % (test code = 770-8) IMM GRAN % (test code 0.90 % = 3006904332) LYMPH % (test code = 3.2 % 736-9) MONO % (test code = 2.9 % 5905-5) EOS % (test code = 0.0 % 713-8) BASO % (test code = 0.0 % 706-2) GRAN MAT x10^3(ANC) 7.94 10*3/uL 1.99-6.95 H (test code = 4997772490) IMM GRAN x10^3 (test 0.08 10*3/uL 0.00-0.06 H code = 7626988613) LYMPH x10^3 (test code 0.27 10*3/uL 1.09-3.23 L = 731-0) MONO x10^3 (test code 0.25 10*3/uL 0.36-1.02 L = 742-7) EOS x10^3 (test code = 0.06-0.53 L 711-2) BASO x10^3 (test code 0.01-0.09 = 704-7) Lab Interpretation Abnormal (test code = 45335-7) [facility] Metabolic Panel (NA, K, CL, CO2, GLUCOSE, BUN, CREATININE, CA)2022-12-03 10:44:53 Test Item Value Reference Range Interpretation Comments NA (test code = 126 mmol/L 135-145 L 3820831022) K (test code = 4.0 mmol/L 3.5-5.0 Slight 2329876580) hemolysis CL (test code = 89 mmol/L 98-108 L 8057558302) CO2 TOTAL (test code 32 mmol/L 23-31 H = 5631059420) AGAP (test code = 5 2-16 0936075714) BUN (test code = 15 mg/dL 7-23 Slight 5902666124) hemolysis GLUCOSE (test code = 115 mg/dL 70-110 H 7828219567) CREATININE (test code 0.63 mg/dL 0.60-1.25 = 2941975601) CALCIUM (test code = 7.7 mg/dL 8.6-10.6 L 9037491848) eGFR (test code = 128.2 mL/min/1.73m2 0145864981) OMAYRA (test code = OMAYRA) Association of [...] tests). Lab Interpretation Abnormal (test code = 49287-7) [facility] [id number] 10:44:53 Test Item Value Reference Range Interpretation Comments MAGNESIUM (test code = 3402679761) 1.6 mg/dL 1.7-2.4 L Lab Interpretation (test code = Abnormal 70146-6) [facility] with Csfjyqcnknmf4459-07-94 10:39:13 Test Item Value Reference Range Interpretation Comments WBC (test code = 11.40 See_Comment H [Automated 2590-2) message] The system which generated this result [...] RDW-SD (test code = 45.4 fL 38.5-51.6 39592-4) RDW-CV (test code = 13.6 % 12.1-15.4 788-0) PLT (test code = 254 See_Comment [Automated 777-3) message] The system which generated this result transmit anirudh reference range : 150 - 328 10*3/ ?L. The reference range was not u sed to interpret th is result as normal/abnormal . MPV (test code = 10.2 fL 9.8-13.0 29061-1) NRBC/100 WBC (test 0.0 See_Comment [Automat ed code = 6017504065) message] The system which generated this result transmit anirudh reference range : 0.0 - 10.0 /100 WBCs. The reference range was not used to interpret this result as normal/abnormal . NRBC x10^3 (test code See_Comment [Auto mated = 4672211384) message] The system which generated this result transmit anirudh reference range : 10*3/?L. The reference range was not used to interpret this result as normal/abnormal . GRAN MAT (NEUT) % 90.0 % (test code = 770-8) IMM GRAN % (test code 0.90 % = 4520619765) LYMPH % (test code = 5.9 % 736-9) MONO % (test code = 2.8 % 5905-5) EOS % (test code = 0.2 % 713-8) BASO % (test code = 0.2 % 706-2) GRAN MAT x10^3(ANC) 10.27 10*3/uL 1.99-6.95 H (test code = 4438754600) IMM GRAN x10^3 (test 0.10 10*3/uL 0.00-0.06 H code = 3950013860) LYMPH x10^3 (test code 0.67 10*3/uL 1.09-3.23 L = 731-0) MONO x10^3 (test code 0.32 10*3/uL 0.36-1.02 L = 742-7) EOS x10^3 (test code = 0.06-0.53 L 711-2) BASO x10^3 (test code 0.01-0.09 = 704-7) Lab Interpretation Abnormal (test code = 47998-4) [facility] METABOLIC PANEL (NA, K, CL, CO2, GLUCOSE, BUN, CREATININE, CA)2022-12-02 06:20:42 Test Item Value Reference Range Interpretation Comments NA (test code = 124 mmol/L 135-145 L 3915677798) K (test code = 4.5 mmol/L 3.5-5.0 9320671311) CL (test code = 78 mmol/L 98-108 L 8681673147) CO2 TOTAL (test code = 37 mmol/L 23-31 H 5690836024) AGAP (test code = 9 2-16 1764445817) BUN (test code = 14 mg/dL 7-23 8786562279) GLUCOSE (test code = 93 mg/dL 70-110 4246789918) CREATININE (test code = 0.71 mg/dL 0.60-1.25 4446113729) CALCIUM (test code = 9.1 mg/dL 8.6-10.6 3280703400) eGFR (test code = 111.7 mL/min/1.73m2 4070889723) OMAYRA (test code = OMAYRA) Association of [...] tests). Lab Interpretation Abnormal (test code = 47788-0) [facility] [id number] 12:22:32 Test Item Value Reference Range Interpretation Comments TROPONIN I (test code = 0.008 ng/mL <=0.034 2122970350) OMAYRA (test code = OMAYRA) Reference (Normal) [...] biotin. Lab Interpretation Normal (test code = 19711-9) [facility] METABOLIC PANEL (NA, K, CL, CO2, GLUCOSE, BUN, CREATININE, CA)2022-12-01 12:11:11 Test Item Value Reference Range Interpretation Comments NA (test code = 124 mmol/L 135-145 L 0999082509) K (test code = 4.2 mmol/L 3.5-5.0 2613558332) CL (test code = 79 mmol/L 98-108 L 8651091170) CO2 TOTAL (test code = 37 mmol/L 23-31 H 8862936124) AGAP (test code = 8 2-16 3312031513) BUN (test code = 16 mg/dL 7-23 2689687462) GLUCOSE (test code = 105 mg/dL 70-110 0558856981) CREATININE (test code = 0.67 mg/dL 0.60-1.25 7582016202) CALCIUM (test code = 8.6 mg/dL 8.6-10.6 9325763160) eGFR (test code = 119.4 mL/min/1.73m2 6069936056) OMAYRA (test code = OMAYRA) Association of [...] tests). Lab Interpretation Abnormal (test code = 48286-7) [facility] WITH [id number] 11:59:32 Test Item Value Reference Range Interpretation Comments WBC (test code = 12.17 See_Comment H [Automated 8153-2) message] The system which generated this result transmit anirudh reference range : 4.20 - 10.70 10*3/?L. The reference range was not used to interpret this result as normal/abnormal . RBC (test code = 4.59 See_Comment [Automated 136-8) message] The system which generated this result [...] RDW-SD (test code = 43.8 fL 38.5-51.6 30151-4) RDW-CV (test code = 13.2 % 12.1-15.4 788-0) PLT (test code = 208 See_Comment [Automated 367-3) message] The system which generated this result transmit anirudh reference range : 150 - 328 10*3/ ?L. The reference range was not u sed to interpret th is result as normal/abnormal . MPV (test code = 9.8 fL 9.8-13.0 50071-8) NRBC/100 WBC (test 0.0 See_Comment [Automat ed code = [id number]) message] The system which generated this result transmit anirudh reference range : 0.0 - 10.0 /100 WBCs. The reference range was not used to interpret this result as normal/abnormal . NRBC x10^3 (test code See_Comment [Auto mated = [id number]) message] The system which generated this result transmit anirudh reference range : 10*3/?L. The reference range was not used to interpret this result as normal/abnormal . GRAN MAT (NEUT) % 85.9 % (test code = 770-8) IMM GRAN % (test code 0.50 % = [id number]) LYMPH % (test code = 6.8 % 736-9) MONO % (test code = 6.3 % 5905-5) EOS % (test code = 0.3 % 713-8) BASO % (test code = 0.2 % 706-2) GRAN MAT x10^3(ANC) 10.44 10*3/uL 1.99-6.95 H (test code = 7983686229) IMM GRAN x10^3 (test 0.06 10*3/uL 0.00-0.06 code = [id number]) LYMPH x10^3 (test code 0.83 10*3/uL 1.09-3.23 L = 731-0) MONO x10^3 (test code 0.77 10*3/uL 0.36-1.02 = 742-7) EOS x10^3 (test code = 0.04 10*3/uL 0.06-0.53 L 711-2) BASO x10^3 (test code 0.03 10*3/uL 0.01-0.09 = 704-7) Lab Interpretation Abnormal (test code = 52302-2) [facility] METABOLIC PANEL (NA, K, CL, CO2, GLUCOSE, BUN, CREATININE, CA)2022-11-28 17:17:23 Test Item Value Reference Range Interpretation Comments NA (test code = 120 mmol/L 135-145 L 5421720831) K (test code = 4.3 mmol/L 3.5-5.0 8661410236) CL (test code = 77 mmol/L 98-108 L 0377460682) CO2 TOTAL (test code = 40 mmol/L 23-31 H 8546663909) AGAP (test code = 3 2-16 1446827516) BUN (test code = 15 mg/dL 7-23 8285338346) GLUCOSE (test code = 151 mg/dL 70-110 H 6761245504) CREATININE (test code = 0.63 mg/dL 0.60-1.25 2589381513) CALCIUM (test code = 8.2 mg/dL 8.6-10.6 L 1839549492) eGFR (test code = 128.2 mL/min/1.73m2 6202610706) OMAYRA (test code = OMAYRA) Association of [...] tests). Lab Interpretation Abnormal (test code = 48974-7) [facility] 06:54:10 Test Item Value Reference Range Interpretation Comments MAGNESIUM (test code = 0445588255) 1.6 mg/dL 1.7-2.4 L Lab Interpretation (test code = Abnormal 99012-2) [facility] (NA, K, CL, CO2, GLUCOSE, BUN, CREATININE, CA)2022-11-28 01:29:53 Test Item Value Reference Range Interpretation Comments NA (test code = 120 mmol/L 135-145 L 1075526587) K (test code = 3.9 mmol/L 3.5-5.0 3216782605) CL (test code = 77 mmol/L 98-108 L 7097790256) CO2 TOTAL (test code = 36 mmol/L 23-31 H 9424970422) AGAP (test code = 7 2-16 0014848447) BUN (test code = 17 mg/dL 7-23 2589465032) GLUCOSE (test code = 85 mg/dL 70-110 0546903782) CREATININE (test code = 0.76 mg/dL 0.60-1.25 1126554255) CALCIUM (test code = 8.3 mg/dL 8.6-10.6 L 1233250121) eGFR (test code = 103.3 mL/min/1.73m2 3781528399) OMAYRA (test code = OMAYRA) Association of [...] tests). Lab Interpretation Abnormal (test code = 72069-5) [facility] (NA, K, CL, CO2, GLUCOSE, BUN, CREATININE, CA)2022-11-27 20:36:26 Test Item Value Reference Range Interpretation Comments NA (test code = 122 mmol/L 135-145 L 6943926467) K (test code = 3.9 mmol/L 3.5-5.0 5911286593) CL (test code = 79 mmol/L 98-108 L 2864104196) CO2 TOTAL (test code = 37 mmol/L 23-31 H 8221851926) AGAP (test code = 6 2-16 7222299609) BUN (test code = 17 mg/dL 7-23 5238286173) GLUCOSE (test code = 113 mg/dL 70-110 H 8907067516) CREATININE (test code = 0.78 mg/dL 0.60-1.25 9346439030) CALCIUM (test code = 7.8 mg/dL 8.6-10.6 L 7162347948) eGFR (test code = 100.2 mL/min/1.73m2 4255162073) OMAYRA (test code = OMAYRA) Association of [...] tests). Lab Interpretation Abnormal (test code = 54996-7) [facility] HEMOGLOBIN (A1C)2022-11-27 18:21:30 Test Item Value Reference Range Interpretation Comments HGB A1C (test code = 5.9 % 4.0-5.7 H 4548-4) OMAYRA (test code = OMAYRA) Reference RangesNormal: <5.7%Prediabetes: 5.7 - 6.4%Diabetes: > 6.5% Lab Interpretation (test Abnormal code = 66952-3) [facility] [id number] 06:12:58 Test Item Value Reference Range Interpretation Comments TROPONIN I (test code = 0.007 ng/mL <=0.034 7407443673) OMAYRA (test code = OMAYRA) Reference (Normal) [...] biotin. Lab Interpretation Normal (test code = 00887-7) [facility]2023-03-11 06:10:43 ALCOHOL<10mg/dL11/27/2022 12:10 AM [facility]<10 Ddbluori21-598 Toxic>100 Depression of [employer]>400 Fatalities [facility]UnB[facility] [id number] 06:09:37 Test Item Value Reference Range Interpretation Comments NT-proBNP (test code = 311 pg/mL <=125 H 1930806987) OMAYRA (test code = OMAYRA) Biotin has been reported to cause a negative bias, interpret results relative to patient's use of biotin. Lab Interpretation (test Abnormal code = 77520-1) [facility] METABOLIC PANEL ([id number])2022-11-27 06:08:02 Test Item Value Reference Range Interpretation Comments NA (test code = 116 mmol/L 135-145 LL 8478345856) K (test code = 4.1 mmol/L 3.5-5.0 4732534792) CL (test code = 75 mmol/L 98-108 L 9162271351) CO2 TOTAL (test code = 34 mmol/L 23-31 H 0393927795) AGAP (test code = 7 2-16 4356233921) BUN (test code = 16 mg/dL 7-23 2770324719) GLUCOSE (test code = 70 mg/dL 70-110 1803078188) CREATININE (test code = 0.62 mg/dL 0.60-1.25 0225936684) TOTAL BILI (test code = 1.2 mg/dL 0.1-1.1 H 2729439890) CALCIUM (test code = 8.1 mg/dL 8.6-10.6 L 4592900982) T PROTEIN (test code = 6.3 g/dL 6.3-8.2 9108127980) ALBUMIN (test code = 3.8 g/dL 3.5-5.0 6075816228) ALK PHOS (test code = 58 U/L 34-122 8472269819) ALTv (test code = 15 U/L 5-50 1742-6) AST(SGOT) (test code = 13 U/L 13-40 0667712862) eGFR (test code = 130.6 mL/min/1.73m2 0610225818) OMAYRA (test code = OMAYRA) Association of [...] tests). Lab Interpretation Abnormal (test code = 02737-9) [facility] WITH [id number] 05:45:18 Test Item Value Reference Range Interpretation Comments WBC (test code = 9.18 See_Comment [Automated 2851-2) message] The sy stem which generated this result transmitted reference range : 4.20 - 10.70 10*3/?L. The reference range was not used to interpret this result as normal/abnormal . RBC (test code = 4.49 See_Comment [Automated 872-1) message] The sy stem which generated this [...] RDW-SD (test code = 40.1 fL 38.5-51.6 29241-7) RDW-CV (test code = 12.6 % 12.1-15.4 788-0) PLT (test code = 216 See_Comment [Automated 777-3) message] The sy stem which generated this result transmitted reference range : 150 - 328 10*3/ ?L. The reference r pasquale was not used to interpret this result as normal/abnormal . MPV (test code = 9.4 fL 9.8-13.0 L 81541-3) NRBC/100 WBC (test 0.0 See_Comment [Automat ed code = 9063605859) message] The system which generated this result transmitted reference range : 0.0 - 10.0 /100 WBCs. The refer ence range was not u sed to interpret th is result as normal/abnormal . NRBC x10^3 (test code See_Comment [Auto mated = 1350771341) message] The s ystem which generated this result transmitted reference range : 10*3/?L. The reference range was not used to interpret this result as normal/abnormal . GRAN MAT (NEUT) % 79.1 % (test code = 770-8) IMM GRAN % (test code 0.90 % = 0434623822) LYMPH % (test code = 11.8 % 736-9) MONO % (test code = 6.8 % 5905-5) EOS % (test code = 1.2 % 713-8) BASO % (test code = 0.2 % 706-2) GRAN MAT x10^3(ANC) 7.27 10*3/uL 1.99-6.95 H (test code = 3310230585) IMM GRAN x10^3 (test 0.08 10*3/uL 0.00-0.06 H code = 2602443816) LYMPH x10^3 (test code 1.08 10*3/uL 1.09-3.23 L = 731-0) MONO x10^3 (test code 0.62 10*3/uL 0.36-1.02 = 742-7) EOS x10^3 (test code = 0.11 10*3/uL 0.06-0.53 711-2) BASO x10^3 (test code 0.01-0.09 = 704-7) Lab Interpretation Abnormal (test code = 09053-1) [facility] [id number] 09:49:54 Test Item Value Reference Range Interpretation Comments NT-proBNP (test code = 294 pg/mL <=125 H 8369831633) OMAYRA (test code = OMAYRA) Biotin has been reported to cause a negative bias, interpret results relative to patient's use of biotin. Lab Interpretation (test Abnormal code = 90573-8) [facility] METABOLIC PANEL (61005)2022-11-19 09:41:52 Test Item Value Reference Range Interpretation Comments NA (test code = 120 mmol/L 135-145 L 3811838109) K (test code = 4.4 mmol/L 3.5-5.0 0750281650) CL (test code = 80 mmol/L 98-108 L 7149470592) CO2 TOTAL (test code = 34 mmol/L 23-31 H 2664539252) AGAP (test code = 6 2-16 2160581392) BUN (test code = 10 mg/dL 7-23 1290831069) GLUCOSE (test code = 93 mg/dL 70-110 6350781768) CREATININE (test code = 0.77 mg/dL 0.60-1.25 1376519025) TOTAL BILI (test code = 1.1 mg/dL 0.1-1.1 8763140765) CALCIUM (test code = 8.7 mg/dL 8.6-10.6 8334351117) T PROTEIN (test code = 6.9 g/dL 6.3-8.2 9754501582) ALBUMIN (test code = 4.1 g/dL 3.5-5.0 3893491281) ALK PHOS (test code = 60 U/L 34-122 4354967953) ALTv (test code = 14 U/L 5-50 1742-6) AST(SGOT) (test code = 13 U/L 13-40 4586570646) eGFR (test code = 101.7 mL/min/1.73m2 0929723311) OMAYRA (test code = OMAYRA) Association of [...] tests). Lab Interpretation Abnormal (test code = 93317-2) [facility] WITH [id number] 09:02:29 Test Item Value Reference Range Interpretation Comments WBC (test code = 8.30 See_Comment [Automated 0116-2) message] The sy stem which generated this result transmitted reference range : 4.20 - 10.70 10*3/?L. The reference range was not used to interpret this result as normal/abnormal . RBC (test code = 4.67 See_Comment [Automated 789-8) message] The sy stem [...] RDW-SD (test code = 42.3 fL 38.5-51.6 54003-9) RDW-CV (test code = 12.9 % 12.1-15.4 788-0) PLT (test code = 252 See_Comment [Automated 777-3) message] The sy stem which generated this result transmitted reference range : 150 - 328 10*3/ ?L. The reference r pasquale was not used to interpret this result as normal/abnormal . MPV (test code = 9.6 fL 9.8-13.0 L 76120-6) NRBC/100 WBC (test 0.0 See_Comment [Automat ed code = 0593992853) message] The system which generated this result transmitted reference range : 0.0 - 10.0 /100 WBCs. The refer ence range was not u sed to interpret th is result as normal/abnormal . NRBC x10^3 (test code See_Comment [Auto mated = 5828581300) message] The s ystem which generated this result transmitted reference range : 10*3/?L. The reference range was not used to interpret this result as normal/abnormal . GRAN MAT (NEUT) % 70.7 % (test code = 770-8) IMM GRAN % (test code 1.00 % = 5621904747) LYMPH % (test code = 16.0 % 736-9) MONO % (test code = 10.5 % 5905-5) EOS % (test code = 1.3 % 713-8) BASO % (test code = 0.5 % 706-2) GRAN MAT x10^3(ANC) 5.87 10*3/uL 1.99-6.95 (test code = 5618321797) IMM GRAN x10^3 (test 0.08 10*3/uL 0.00-0.06 H code = 5529511069) LYMPH x10^3 (test code 1.33 10*3/uL 1.09-3.23 = 731-0) MONO x10^3 (test code 0.87 10*3/uL 0.36-1.02 = 742-7) EOS x10^3 (test code = 0.11 10*3/uL 0.06-0.53 711-2) BASO x10^3 (test code 0.04 10*3/uL 0.01-0.09 = 704-7) Lab Interpretation Abnormal (test code = 27168-6) [facility] METABOLIC PANEL (NA, K, CL, CO2, GLUCOSE, BUN, CREATININE, CA)2022-11-10 23:42:55 Test Item Value Reference Range Interpretation Comments NA (test code = 121 mmol/L 135-145 L 1989951474) K (test code = 4.7 mmol/L 3.5-5.0 5127961839) CL (test code = 82 mmol/L 98-108 L 0008963508) CO2 TOTAL (test code = 34 mmol/L 23-31 H 2891092611) AGAP (test code = 5 2-16 5833580059) BUN (test code = 15 mg/dL 7-23 7634326247) GLUCOSE (test code = 120 mg/dL 70-110 H 0818400113) CREATININE (test code = 0.75 mg/dL 0.60-1.25 2852475685) CALCIUM (test code = 7.7 mg/dL 8.6-10.6 L 2500020733) eGFR (test code = 104.8 mL/min/1.73m2 0570106673) OMAYRA (test code = OMAYRA) Association of [...] tests). Lab Interpretation Abnormal (test code = 27339-6) [facility] (NA, K, CL, CO2, GLUCOSE, BUN, CREATININE, CA)2022-11-10 17:59:59 Test Item Value Reference Range Interpretation Comments NA (test code = 121 mmol/L 135-145 L 3305615249) K (test code = 4.3 mmol/L 3.5-5.0 6256639114) CL (test code = 81 mmol/L 98-108 L 7010913823) CO2 TOTAL (test code = 38 mmol/L 23-31 H 1990043135) AGAP (test code = 2 2-16 2884882161) BUN (test code = 15 mg/dL 7-23 9950959651) GLUCOSE (test code = 113 mg/dL 70-110 H 8423633545) CREATININE (test code = 0.74 mg/dL 0.60-1.25 2901623147) CALCIUM (test code = 7.5 mg/dL 8.6-10.6 L 8233028991) eGFR (test code = 106.5 mL/min/1.73m2 3069157529) OMAYRA (test code = OMAYRA) Association of [...] tests). Lab Interpretation Abnormal (test code = 91354-5) [facility] [id number] 13:08:23 Test Item Value Reference Range Interpretation Comments NT-proBNP (test code = 177 pg/mL <=125 H 5859113395) OMAYRA (test code = OMAYRA) Biotin has been reported to cause a negative bias, interpret results relative to patient's use of biotin. Lab Interpretation (test Abnormal code = 18636-6) [facility] [id number] 08:23:33 Test Item Value Reference Range Interpretation Comments TROPONIN I (test code = 0.004 ng/mL <=0.034 4071909643) OMAYRA (test code = OMAYRA) Reference (Normal) [...] biotin. Lab Interpretation Normal (test code = 77853-7) [facility]. METABOLIC PANEL (85581)2022-11-09 08:12:09 Test Item Value Reference Range Interpretation Comments NA (test code = 123 mmol/L 135-145 L 4706437463) K (test code = 4.2 mmol/L 3.5-5.0 9918352309) CL (test code = 78 mmol/L 98-108 L 2376116872) CO2 TOTAL (test code = 34 mmol/L 23-31 H 4156501050) AGAP (test code = 11 2-16 5721786075) BUN (test code = 8 mg/dL 7-23 6106989834) GLUCOSE (test code = 113 mg/dL 70-110 H 6307079522) CREATININE (test code = 0.87 mg/dL 0.60-1.25 7407957263) TOTAL BILI (test code = 1.2 mg/dL 0.1-1.1 H 4914820963) CALCIUM (test code = 8.8 mg/dL 8.6-10.6 1454779176) T PROTEIN (test code = 7.6 g/dL 6.3-8.2 9377222011) ALBUMIN (test code = 4.5 g/dL 3.5-5.0 6136069956) ALK PHOS (test code = 72 U/L 34-122 7170941661) ALTv (test code = 13 U/L 5-50 2-6) AST(SGOT) (test code = 13 U/L 13-40 6269390782) eGFR (test code = 88.3 mL/min/1.73m2 4189270416) OMAYRA (test code = OMAYRA) Association of [...] tests). Lab Interpretation Abnormal (test code = 83968-4) [facility]kin[facility]IPASE, [id number] 08:11:14 Test Item Value Reference Range Interpretation Comments LIPASE (test code = 5508203587) 108 U/L 0-220 Lab Interpretation (test code = Normal 83579-1) [facility] WITH [id number] 07:59:28 Test Item Value Reference Range Interpretation Comments WBC (test code = 8.95 See_Comment [Automated message] 5590-2) The system [employer] generated this result transmitted ref erence range: 4.20 - 1 0.70 10*3/?L. The re ference range was not u sed to interpret this result as normal/abnor mal. RBC (test code = 5.07 See_Comment [Automated message] 761-8) The system [employer] generated this result transmitted ref erence range: [...] RDW-SD (test code 41.1 fL 38.5-51.6 = 62058-4) RDW-CV (test code 12.5 % 12.1-15.4 = 788-0) PLT (test code = 235 See_Comment [Automated message] 777-3) The system [employer] generated this result transmitted ref erence range: 150 - 32 8 10*3/?L. The re ference range was not u sed to interpret this result as normal/abnor mal. MPV (test code = 9.8 fL 9.8-13.0 67035-0) NRBC/100 WBC (test 0.0 See_Comment [Automat ed message] code = 1071533367) The syste m which generated this result transmitted ref erence range: 0.0 - 10 .0 /100 WBCs. The refer ence range was not u sed to interpret this result as normal/abnor mal. NRBC x10^3 (test See_Comment [Automated message] code = 1491922656) The syste m which generated this result transmitted ref erence range: 10*3/?L. The reference range was not used to interpr et this result as normal/abnormal . GRAN MAT (NEUT) % 56.9 % (test code = 770-8) IMM GRAN % (test 0.40 % code = 1838100722) LYMPH % (test code 29.4 % = 736-9) MONO % (test code 9.5 % = 5905-5) EOS % (test code = 3.0 % 713-8) BASO % (test code 0.8 % = 706-2) GRAN MAT 5.09 10*3/uL 1.99-6.95 x10^3(ANC) (test code = 1969819120) IMM GRAN x10^3 0.04 10*3/uL 0.00-0.06 (test code = 4086718435) LYMPH x10^3 (test 2.63 10*3/uL 1.09-3.23 code = 731-0) MONO x10^3 (test 0.85 10*3/uL 0.36-1.02 code = 742-7) EOS x10^3 (test 0.27 10*3/uL 0.06-0.53 code = 711-2) BASO x10^3 (test 0.07 10*3/uL 0.01-0.09 code = 704-7) [facility] URINALYSIS, [id number] 19:05:00 Test Item Value Reference Range Interpretation [...] U APPEAR (test code = clear 3267) [facility] URINALYSIS, [id number] 19:05:00 Test Item Value Reference Range Interpretation [...] APPEAR (test code = clear 3267) [facility] URINALYS[facility], [id number] 19:05:00 Test Item Value Reference Range Interpretation [...] U APPEAR (test code = clear 3267) [facility] ABDOMEN PELVIS W [id number] 17:53:531. ?No hydronephrosis or nephrolithiasis. 2. ?Mild [...] hernia with mild circumferential distalesophageal thickening (2:16). [place] density within the distal stomach andat the [...] hernia with mild circumferential distalesophageal thickening (2:16). [place] density within the distal stomach andat the [...] small right hydrocele.5. Additional findings as above. [facility] MdlkfzSiyyfenbfx6004-72-61 17:37:38 Test Item Value Reference Range Interpretation Comments APPEARANCE (test code = Cloudy Clear A 6671619177) COLOR (test code = Red Yellow A 9793277959) PH (test code = 4.8-8.0 3653173452) SP GRAVITY (test code = 1.003-1.030 7058389470) GLU U QUAL (test code = 50 mg/dL Normal A 2751499615) BLOOD (test code = 3+ Negative A 1079765544) KETONES (test code = Negative Negative 7589416410) PROTEIN (test code = 100 mg/dL Negative A 2887-8) UROBILIN (test code = Normal Normal 9265701384) BILIRUBIN (test code = Negative Negative 2583748843) NITRITE (test code = Negative Negative 5226196912) LEUK DIANELYS (test code = Negative Negative 2393085547) RBC/HPF (test code = >182 See_Comment H [Autom ated message] 2885960566) The system [employer] generated this result transmit anirudh reference range : 0 - 3 HPF. The refe rence range was not u sed to interpret th is result as normal/abnormal . WBC/HPF (test code = >182 See_Comment H [Autom ated message] 4000677282) The system [employer] generated this result transmit anirudh reference range : 0 - 5 HPF. The refe rence range was not u sed to interpret th is result as normal/abnormal . BACTERIA (test code = Moderate Negative A 3957578344) WBC CLUMPS (test code = See_Comment H [Au tomated message] 3687023319) The system [employer] generated this result transmit anirudh reference range : <=1 HPF. The refere nce range was not u sed to interpret th is result as normal/abnormal . Lab Interpretation (test Abnormal code = 38503-1) [facility] Metabolic Panel (NA, K, CL, CO2, GLUCOSE, BUN, CREATININE, CA)2020-12-12 17:13:57 Test Item Value Reference Range Interpretation Comments NA (test code = 140 mmol/L 135-145 7731069763) K (test code = 4.5 mmol/L 3.5-5.0 5990558461) CL (test code = 100 mmol/L 98-108 9513673015) CO2 TOTAL (test code = 35 mmol/L 23-31 H 4786786766) AGAP (test code = 2-16 8679706492) BUN (test code = 25 mg/dL 7-23 H 3701689510) GLUCOSE (test code = 114 mg/dL 70-110 H 2334690452) CREATININE (test code = 1.18 mg/dL 0.60-1.25 2196289182) CALCIUM (test code = 9.0 mg/dL 8.6-10.6 4668016731) eGFR Calculation mL/min/1.73m2 (Non-) (test code = 4673890394) eGFR Calculation mL/min/1.73m2 () (test code = 0932684737) OMAYRA (test code = OMAYRA) Association of [...] tests). Lab Interpretation Abnormal (test code = 88349-0) [facility] with [id number] 16:56:10 Test Item Value Reference Range Interpretation Comments WBC (test code = See_Comment [Automated 5097-2) message] The sy stem which generated this result transmitted reference range : 4.20 - 10.70 10*3/?L. The reference range was not used to interpret this result as normal/abnormal . RBC (test code = See_Comment [Automated 884-8) message] The sy stem which generated this [...] RDW-SD (test code = 42.9 fL 38.5-51.6 10796-1) RDW-CV (test code = 11.9 % 12.1-15.4 L 788-0) PLT (test code = See_Comment [Automated 777-3) message] The sy stem which generated this result transmitted reference range : 150 - 328 10*3/ ?L. The reference r pasquale was not used to interpret this result as normal/abnormal . MPV (test code = 10.8 fL 9.8-13.0 71813-6) NRBC/100 WBC (test See_Comment [Automat ed code = 9579812073) message] The system which generated this result transmitted reference range : 0.0 - 10.0 /100 WBCs. The refer ence range was not u sed to interpret th is result as normal/abnormal . NRBC x10^3 (test code <0.01 See_Comment [Auto mated = 4842318881) message] The s ystem which generated this result transmitted reference range : 10*3/?L. The reference range was not used to interpret this result as normal/abnormal . GRAN MAT (NEUT) % 63.5 % (test code = 770-8) IMM GRAN % (test code 0.40 % = 1922181639) LYMPH % (test code = 23.9 % 736-9) MONO % (test code = 6.7 % 5905-5) EOS % (test code = 4.3 % 713-8) BASO % (test code = 1.2 % 706-2) GRAN MAT x10^3(ANC) 4.27 10*3/uL 1.99-6.95 (test code = 6626095420) IMM GRAN x10^3 (test 0.03 10*3/uL 0.00-0.06 code = 8127582792) LYMPH x10^3 (test code 1.61 10*3/uL 1.09-3.23 = 731-0) MONO x10^3 (test code 0.45 10*3/uL 0.36-1.02 = 742-7) EOS x10^3 (test code = 0.29 10*3/uL 0.06-0.53 711-2) BASO x10^3 (test code 0.08 10*3/uL 0.01-0.09 = 704-7) Lab Interpretation Abnormal (test code = 56030-3) [facility] URINALYSIS, [id number] 18:56:00 Test Item Value Reference Range Interpretation [...] 3267) Lab Interpretation (test code Abnormal = 33185-7) [facility] URINALYSIS, [id number] 18:56:00 Test Item Value Reference Range Interpretation [...] 3267) Lab Interpretation (test code Abnormal = 59233-6) [facility] [id number] 16:22:00 Patient Name: THIERRY MONGE Unit No: [id number] EXAMS: CPT CODE: [id number] XR CHEST 1V 23604 EXAMINATION: - XR CHEST 1V. LOCATION: B2. HISTORY: S/P ICD. COMPARISON: None. TECHNIQUE: Single AP view ofthe chest was obtained. FINDINGS: The right lung apex is excluded from the xieng-sr-weat. The heart is normal in size. Left AICD device is present. The lungs are clear. No acute osseous abnormality is i dentified. IMPRESSION: The right lung apex is excluded from the pldvb-wr-kzzk. No acute cardiopulmonary abnormality is identified. at 1622 Reported and signed by: Latanya Marshall MD CC: Tyrell Mckeon Technologist: JOSELYN Mathews, RT(R) Transcrpt Date/Tm/Trnsp: 06/19/2020 (1622) [email or web address] Orig Print D/T: S: 06/19/2020 (1625) [facility] WestNAME: THIERRY MONGE [address] PHYS: [place] [address] : 1960 AGE: 59 SEX: M LOC: [id number] A PHONE #: [phone] EXAM DATE: 06/19/2020 STATUS: ADM IN FAX #: [phone] RADIOLOGY NO: PAGE 1 Signed ReportBASIC METABOLIC [id number] 13:17:00 Test Item Value Reference Range Interpretation [...] code = MG/DL 8.7-9.7 CA) Comments to Sales And Service Agent: NURSE WILL BRING SPECIMEN TO LABIs this a LINE draw? N [id number] 13:17:00 Test Item Value Reference Range Interpretation Comments MAGNESIUM (test code = MAG) MG/DL 1.6-2.3 Comments to Sales And Service Agent: NURSE WILL BRING SPECIMEN TO LABIs this a LINE draw? N BASIC METABOLIC [id number] 13:17:00 Test Item Value Reference Range Interpretation [...] 9.1 MG/DL 8.4-10.2 N CA) Comments to Sales And Service Agent: NURSE WILL BRING SPECIMEN TO LABIs this a LINE draw? N [id number] 13:17:00 Test Item Value Reference Range Interpretation Comments MAGNESIUM (test code = MAG) 2.2 MG/DL 1.6-2.3 N Comments to Sales And Service Agent: NURSE WILL BRING SPECIMEN TO LABIs this a LINE draw? N BASIC METABOLIC [id number] 13:16:00 Test Item Value Reference Range Interpretation [...] code = MG/DL 8.7-9.7 CA) Comments to Sales And Service Agent: NURSE WILL BRING SPECIMEN TO LABIs this a LINE draw? N [id number] 13:16:00 Test Item Value Reference Range Interpretation Comments MAGNESIUM (test code = MAG) MG/DL 1.6-2.3 Comments to Sales And Service Agent: NURSE WILL BRING SPECIMEN TO LABIs this a LINE draw? N BASIC METABOLIC [id number] 13:14:00 Test Item Value Reference Range Interpretation [...] code = CA) MG/DL 8.7-9.7 Comments to Sales And Service Agent: NURSE WILL BRING SPECIMEN TO LABIs this a LINE draw? N [id number] 13:14:00 Test Item Value Reference Range Interpretation Comments MAGNESIUM (test code = MAG) MG/DL 1.6-2.3 Comments to Sales And Service Agent: NURSE WILL BRING SPECIMEN TO LABIs this a LINE draw? N BASIC METABOLIC [id number] 13:13:00 Test Item Value Reference Range Interpretation [...] code = CA) MG/DL 8.7-9.7 Comments to Sales And Service Agent: NURSE WILL BRING SPECIMEN TO LABIs this a LINE draw? N [id number] 13:13:00 Test Item Value Reference Range Interpretation Comments MAGNESIUM (test code = MAG) MG/DL 1.6-2.3 Comments to Sales And Service Agent: NURSE WILL BRING SPECIMEN TO LABIs this a LINE draw? N PROTHROMBIN [id number] 13:08:00 Test Item Value Reference Range Interpretation [...] dial infarction. 2. 0 - 3.0 3. Computer Security Manager al prosthesis hear t valves, recurre nt systemic emboli sm. 3.0 - 4.5 Comments to Sales And Service Agent: NURSE WILL BRING SPECIMEN TO LABPTT ACTIVATED 2020-06-19 13:08:00 Test Item Value Reference Range Interpretation Comments PTT ACTIVATED (test code = APTT) 30.8 SECONDS 25.1-36.5 N Comments to Sales And Service Agent: NURSE WILL BRING SPECIMEN TO LABCBC W/AUTO [...] 0.00 K/mm3 0.0-0.1 N NRBC#) Comments to Sales And Service Agent: NURSE WILL BRING SPECIMEN TO LABIs this a LINE draw? N COVID 19 Asymptomatic IH [id number] 12:14:00 Test Item Value Reference Range Interpretation [...]
[2023-07-03] MEDS ORDERED: ALBUTEROL 2.5 MG/3 ML NEB SOL ONE (07:16)
[2023-07-03 07:34] LABS: Absolute Lymphocytes (CBC) 1.8 K/uL (0.7-4.9); Hematocrit 37.5 % (39.6-49.0); Lymphocytes % 22.8 % (15.3-44.8); MCV 95.1 fL (80-100); MPV 8.2 fL (7.6-11.3); Platelets 222 thou/uL (152-406); RBC Red Blood Cell Count 3.94 M/uL (4.33-5.43)
[2023-07-03 07:40] LABS: Protime INR 1.09
[2023-07-03] MEDS ORDERED: AZITHROMYCIN 250 MG TAB ONE (07:55)
[2023-07-03 07:56] LABS: ALT/SGPT 16 U/L (16-61); Alkaline Phosphatase 62 U/L (45-117); BUN Blood Urea Nitrogen 23 mg/dL (7-18); Bicarbonate 42 mEq/L (21-32); Glomerular Filtration Rate 100 ml/min (=/>90); Glucose Level 105 mg/dL (74-106); Sodium Level 139 mEq/L (136-145)
[2023-07-03 07:57] LABS: AST/SGOT < 4 U/L (15-37); Albumin 2.9 g/dL (3.4-5.0); Bilirubin Direct < 0.1 mg/dL (0-0.2); Bilirubin Indirect, Calculated ND mg/dL (0.2-0.8); Bilirubin Total 0.5 mg/dL (0.2-1.0); Creatine Phosphokinase 36 U/L (39-308); Lipase 34 U/L (13-75); NT PRO-BNP 210 pg/mL (<125); Potassium 3.7 mEq/L (3.5-5.1); Troponin High Sensitivity 11.3 pg/mL (<58.9)
[2023-07-03] MEDS ORDERED: CEFTRIAXONE 1000 MG/VIAL ONE (08:26)
--- NOTE | 2023-07-03 09:11 | RAD REPORT ---
EXAM DESCRIPTION: RAD - Chest Single View - 07/03/2023 7:49 am CLINICAL HISTORY: CONGESTION Chest pain. COMPARISON: Chest Single View dated 06/09/2023; Chest Single View dated 06/07/2023; Chest Single View dated 05/28/2023; Chest Single View dated 05/01/2023 FINDINGS: Portable technique limits examination quality. The lungs are emphysematous but grossly clear. The heart is normal in size. No displaced fractures.Si ngle lead pacer/defibrillator device. IMPRESSION: No acute intrathoracic process suspected.
--- NOTE | 2023-07-03 09:15 | ER ---
Nurse's Notes [facility] Name: Juan C Monge Age: 62 yrs Sex: Male : 1960 Arrival Date: 07/03/2023 Time: 06:35 Bed 20 Private MD: Diagnosis: Sepsis, unspecified organism Presentation: 07/03 06:45 Chief complaint: EMS states: 62 year old male reports shortness of breath. on our ha1 arrival oxygen saturation at 94 on 2 liter nasal canula. Breathing treatment given, and 125 mg of Solu-Medrol. Place on non-rebreather oxygen sat at 100%. Pt. states " my pace maker shocked me like two weeks ago". denies any chest pain. 06:45 Coronavirus screen: Vaccine status: Patient reports receiving the 2nd dose of the covid ha1 vaccine. [employer]. Ebola Screen: No symptoms or risks identified at this time. Initial Sepsis Screen: Does the patient meet any 2 criteria? No. Patient's initial sepsis screen is negative. Does the patient have a suspected source of infection? No. Patient's initial sepsis screen is negative. Risk Assessment: Do you want to hurt yourself or someone else? Patient reports no desire to harm self or others. Onset of symptoms was July 03, 2023. 06:45 Method Of Arrival: EMS: [facility] 06:45 Acuity: JESSI 3 ha1 Triage Assessment: 06:45 General: Appears uncomfortable, Behavior is cooperative, anxious. Pain: Denies pain. ha1 Neuro: Level of Consciousness is awake, alert, obeys commands, Oriented to person, place, time, situation. Cardiovascular: Reports shortness of breath, Heart tones S1 S2 present Capillary refill < 3 seconds Patient's skin is warm and dry. Respiratory: Airway is patent Respiratory effort is even, unlabored, Respiratory pattern is tachypnea. GI: No signs and/or symptoms were reported involving the gastrointestinal system. : No signs and/or symptoms were reported regarding the genitourinary system. Musculoskeletal: Circulation, motion, and sensation intact. Range of motion: intact in all extremities. Historical: - Allergies: 06:45 No Known Allergies; ha1 - PMHx: 06:45 Atrial Fib; COPD; CVA; Hyperlipidemia; Hypertension; Myocardial infarction; skull ha1 fracture; - PSHx: 06:45 Appendectomy; pacemaker; ha1 - Immunization history:: Adult Immunizations unknown. - Social history:: Smoking status: Patient reports the use of cigarette tobacco products, smokes one-half pack cigarettes per day. - Family history:: not pertinent. Screenin:45 Abuse screen: Denies threats or abuse. Denies injuries from another. Nutritional ha1 screening: No deficits noted. Tuberculosis screening: No symptoms or risk factors identified. 07:00 [facility] ED Fall Risk Assessment (Adult) History of falling in the last 3 months, kc6 including since admission No falls in past 3 months (0 pts) Confusion or Disorientation No (0 pts) Intoxicated or Sedated No (0 pts) Impaired Gait No (0 pts) Mobility Assist Device Used No (0 pt) Altered Elimination No (0 pt) Score/Fall Risk Level 0 - 2 = Low Risk. Assessment: 06:45 Reassessment: see triage assessment. ha1 07:45 Reassessment: Patient appears in no apparent distress at this time. No changes from [facility] previously documented assessment. Patient and/or family updated on plan of care and expected duration. Pain level reassessed. Patient is alert, oriented x 3, equal unlabored respirations, skin warm/dry/pink. 08:45 Reassessment: Patient appears in no apparent distress at this time. No changes from kc6 previously documented assessment. Patient and/or family updated on plan of care and expected duration. Pain level reassessed. Patient is alert, oriented x 3, equal unlabored respirations, skin warm/dry/pink. 09:30 Reassessment: Patient appears in no apparent distress at this time. No changes from kc6 previously documented assessment. Patient and/or family updated on plan of care and expected duration. Pain level reassessed. Patient is alert, oriented x 3, equal unlabored respirations, skin warm/dry/pink. 10:14 Reassessment: Patient appears in no apparent distress at this time. No changes from kc6 previously documented assessment. Patient and/or family updated on plan of care and expected duration. Pain level reassessed. Patient is alert, oriented x 3, equal unlabored respirations, skin warm/dry/pink. 11:24 Reassessment: attempted to call report to 2nd floor. no answer at this time. [facility] 11:45 Reassessment: attempted to call report to SERA Giron on second floor. unavailable at [facility] this time. Vital Signs: 06:45 BP 151 / 99; Pulse 96; Resp 23 S; Temp 97.9(TE); Pulse Ox 100% on 10 lpm Non-rebreather ha1 mask; Weight 74.84 kg; Height 5 ft. 6 in. ; Pain 0/10; 08:09 BP 141 / 80; Pulse 95; Resp 18 S; Pulse Ox 97% on 2 lpm NC; kc6 09:11 BP 130 / 85; Pulse 100; Resp 20 S; Pulse Ox 99% on 2 lpm NC; kc6 10:14 BP 143 / 82; Pulse 104; Resp 20 S; Pulse Ox 98% on 2 lpm NC; kc6 06:45 Body Mass Index 26.63 (74.84 kg, 167.64 cm) ha1 06:45 Pain Scale: Adult ha1 ED Course: 06:45 Patient arrived in ED. as6 06:45 Lexa Cross MD is Attending Physician. sp4 06:45 Patient has correct armband on for positive identification. Bed in low position. Call ha1 light in reach. Side rails up X 1. 07:00 Arm band placed on. kc6 07:00 Report received from Anette Fernandez RN. kc6 07:01 Anette Fernandez RN is Primary Nurse. ha1 07:02 Attending Physician role handed off by Lexa Cross MD ec2 07:02 Ramesh Hardy MD is Attending Physician. ec2 07:05 Inserted saline lock: 22 gauge in right forearm, using aseptic technique. ha1 07:05 Report given to SERA Tarango. ha1 07:36 Triage completed. ha1 07:40 Inserted saline lock: 22 gauge in right forearm, using aseptic technique. Blood 6 collected. Maintain EMS IV. Dressing intact. Good blood return noted. Site clean \\T\\ dry. Gauge \\T\\ site: 20G LFA. 07:50 XRAY CXR (1 view) In Process Unspecified. EDMS 09:14 Ramesh Hardy MD is Hospitalizing Provider. ec2 09:14 Ren Mcgraw MD is Hospitalizing Provider. ec2 12:06 No provider procedures requiring assistance completed. Patient admitted, IV remains in kc6 place. Administered Medications: 07:07 Drug: Albuterol Inhalation 2.5 mg Inhalation every 20 minutes x3 Route: Inhalation; ha1 07:39 Drug: Albuterol Inhalation 2.5 mg Inhalation every 20 minutes x3 Route: Inhalation; kc6 07:40 Drug: Albuterol Inhalation 2.5 mg Inhalation every 20 minutes x3 Route: Inhalation; kc6 08:08 Follow up: Response: No adverse reaction kc6 08:08 Drug: AZITHromycin PO 500 mg PO once Route: PO; kc6 08:45 Follow up: Response: No adverse reaction 6 08:23 Drug: Rocephin IV 1 grams IV at calculated rate once; Given slow IV push per pharmacy kc6 instructions Route: IV; Rate: calculated rate; Site: right forearm; 08:45 Follow up: Response: No adverse reaction; IV Status: Completed infusion; IV Intake: [id number] Medication: 12:06 VIS not applicable for this client. 6 Intake: 08:45 IV: 10ml; Total: 10ml. [facility] Outcome: 09:14 Decision to Hospitalize by Provider. ec2 12:06 Admitted to Med/surg accompanied by tech, via wheelchair, room 225, with oxygen, with [facility] chart, Report called to SERA Giron 12:06 Condition: improved 12:06 Instructed on the need for admit, 12:07 Patient left the ED. [facility] Signatures: Dispatcher [employer] Ashvin Mike RN RN as6 Anette Fernandez RN RN ha1 Campbell, Kaitlyn, RN RN kc6 Lexa Cross MD MD sp4 Ramesh Hardy MD MD ec2 Corrections: (The following items were deleted from the chart) 07:42 06:45 Chief complaint: EMS states: 62 year old male reports shortness of breath. on our ha1 arrival oxygen saturation at 94 on 2 liter nasal canula. Breathing treatment given, and 125 mg of Solu-Medrol. Place on non-rebreather oxygen sat at 100% ha1
--- NOTE | 2023-07-03 09:15 | EDPHYS ---
Physician Documentation [facility] Name: Juan C Monge Age: 62 yrs Sex: Male : 1960 Arrival Date: 07/03/2023 Time: 06:35 Bed 20 Private MD: ED Physician Ramesh Hardy HPI: 07/03 06:46 This 62 yrs old Male presents to ER via Unassigned with complaints of sp4 Dyspnea, COPD . 06:46 The patient presents with worsening dyspnea starting this morning. Patient has history sp4 of COPD he is on home oxygen 2 L [id number]. Patient still smokes half a pack a day cigarettes. Patient was brought in by EMS with worsening shortness of breath, wheezing, also he was given DuoNeb in route and he was given 125 Solu-Medrol IV in route.. Historical: - Allergies: 06:45 No Known Allergies; ha1 - PMHx: 06:45 Atrial Fib; COPD; CVA; Hyperlipidemia; Hypertension; Myocardial infarction; skull ha1 fracture; - PSHx: 06:45 Appendectomy; pacemaker; ha1 - Immunization history:: Adult Immunizations unknown. - Social history:: Smoking status: Patient reports the use of cigarette tobacco products, smokes one-half pack cigarettes per day. - Family history:: not pertinent. ROS: 06:46 Constitutional: Negative for fever, chills, and weight loss, positive dyspnea positive sp4 tachypnea positive cough 06:46 All other systems are negative, Exam: 06:46 Constitutional: This is a well developed, well nourished patient who is awake, alert, sp4 and in no acute distress. Head/Face: Normocephalic, atraumatic. Eyes: Pupils equal round and reactive to light, extra-ocular motions intact. Lids and lashes normal. Conjunctiva and sclera are not injected. Cornea within normal limits. Periorbital areas with no swelling, redness, or edema. ENT: Nares patent. No nasal discharge, no septal abnormalities noted. Tympanic membranes are normal and external auditory canals are clear. Oropharynx with no redness, swelling, or masses, exudates, or evidence of obstruction, uvula midline. Mucous membranes moist. Neck: Trachea midline, no thyromegaly or masses palpated, and no cervical lymphadenopathy. Supple, full range of motion without nuchal rigidity, or vertebral point tenderness. Chest/axilla: Normal chest wall appearance and motion. Nontender with no deformity. No lesions are appreciated. Cardiovascular: Regular rate and rhythm with a normal S1 and S2. No gallops, murmurs, or rubs. Normal PMI, no JVD. No pulse deficits. Respiratory: Lungs have equal breath sounds bilaterally, positive bilateral expiratory wheezes, positive dyspnea positive tachypnea positive retractions. Abdomen/GI: Soft, non-tender, with normal bowel sounds. No distension or tympany. No guarding or rebound. No evidence of tenderness throughout. Back: No spinal tenderness. No costovertebral tenderness. Skin: Warm, dry with normal turgor. Normal color with no rashes, no lesions, and no evidence of cellulitis. MS/ Extremity: Pulses equal, no cyanosis. Neurovascular intact. Full, normal range of motion. Neuro: Awake and alert, GCS 15, oriented to person, place, time, and situation. Cranial nerves II-XII grossly intact. Motor strength 5/5 in all extremities. Sensory grossly intact. Psych: Awake, alert, with orientation to person, place and time. Behavior, mood, and affect are within normal limits Vital Signs: 06:45 BP 151 / 99; Pulse 96; Resp 23 S; Temp 97.9(TE); Pulse Ox 100% on 10 lpm Non-rebreather ha1 mask; Weight 74.84 kg; Height 5 ft. 6 in. ; Pain 0/10; 08:09 BP 141 / 80; Pulse 95; Resp 18 S; Pulse Ox 97% on 2 lpm NC; kc6 09:11 BP 130 / 85; Pulse 100; Resp 20 S; Pulse Ox 99% on 2 lpm NC; kc6 10:14 BP 143 / 82; Pulse 104; Resp 20 S; Pulse Ox 98% on 2 lpm NC; kc6 06:45 Body Mass Index 26.63 (74.84 kg, 167.64 cm) ha1 06:45 Pain Scale: Adult ha1 MDM: 06:46 Patient medically screened. ec2 07:05 Transition of care: After a detail discussion of the patient's case, care is sp4 transferred to Ramesh Hardy MD. 07:13 Transition of care: Care assumed from Lexa Cross MD. ED course: Patient signed ec2 out to me by previous physician, in brief patient arrives today due to concern for worsening shortness of breath. Patient with history of COPD, baseline 2 L of oxygen was given Solu-Medrol as well as a DuoNeb in route. Plan is to follow-up lab work, chest x-ray and reassess the patient. Currently considered process such as volume overload, COPD exacerbation. We will also give the patient azithromycin. EKG was obtained, independently reviewed and interpreted by me, shows normal sinus rhythm, rate of 87, no acute ST segment elevations, nonconcerning intervals. Motion artifact noted. . 07:53 ED course: Patient noted to be tachypneic with a respiratory rate of 23 as well as with ec2 a heart rate of 96, meet SIRS criteria, possible underlying pulmonary pathology causing lung infection, will obtain a septic work-up and lactic acid as well. We will add on ceftriaxone as well as antibiotic coverage.. 08:50 ED course: . ec2 08:51 Data reviewed: vital signs. ec2 09:10 ED course: Lactic acid within normal ranges. Chest x-ray independently reviewed and ec2 interpreted by me, shows no acute intrathoracic process. We will admit the patient for COPD exacerbation, sepsis. I discussed case with hospitalist, pending admission.. 07/03 06:46 Order name: BMP; Complete Time: 08:04 sp4 07/03 06:46 Order name: Blood Culture Adult (2) sp4 07/03 06:46 Order name: CBC with Diff; Complete Time: 07:39 sp4 07/03 06:46 Order name: CPK; Complete Time: 08:04 sp4 07/03 06:46 Order name: Hepatic Function; Complete Time: 08:04 sp4 07/03 06:46 Order name: Lipase; Complete Time: 08:04 sp4 07/03 06:46 Order name: Magnesium; Complete Time: 08:04 sp4 07/03 06:46 Order name: NT PRO-BNP; Complete Time: 08:04 sp4 07/03 06:46 Order name: PT-INR; Complete Time: 08:04 sp4 07/03 06:46 Order name: Ptt, Activated; Complete Time: 08:04 sp4 07/03 06:46 Order name: Troponin HS; Complete Time: 08:04 sp4 07/03 07:53 Order name: Lactate w/ 2H reflex if indic.; Complete Time: 08:32 ec2 07/03 10:02 Order name: Basic Metabolic Panel EDMS 07/03 10:02 Order name: Basic Metabolic Panel EDMS 07/03 10:02 Order name: Basic Metabolic Panel EDMS 07/03 10:02 Order name: Basic Metabolic Panel EDMS 07/03 10:02 Order name: CBC with Automated Diff EDMS 07/03 10:02 Order name: CBC with Automated Diff EDMS 07/03 10:02 Order name: CBC with Automated Diff EDMS 07/03 10:02 Order name: CBC with Automated Diff EDMS 07/03 10:02 Order name: Lipid Profile EDMS 07/03 10:02 Order name: Lipid Profile EDMS 07/03 10:02 Order name: Magnesium EDMS 07/03 10:02 Order name: Magnesium EDMS 07/03 10:02 Order name: Magnesium EDMS 07/03 10:02 Order name: Magnesium EDMS 07/03 10:02 Order name: Phosphorus EDMS 07/03 10:02 Order name: Phosphorus EDMS 07/03 10:02 Order name: Phosphorus EDMS 07/03 10:02 Order name: Phosphorus EDMS 07/03 10:14 Order name: Basic Metabolic Panel EDMS 07/03 10:14 Order name: Basic Metabolic Panel EDMS 07/03 10:14 Order name: CBC with Automated Diff EDMS 07/03 10:14 Order name: CBC with Automated Diff EDMS 07/03 10:14 Order name: NT PRO-BNP EDMS 07/03 10:14 Order name: NT PRO-BNP EDMS 07/03 06:46 Order name: XRAY CXR (1 view); Complete Time: 09:14 sp4 07/03 10:14 Order name: Chest Single View EDMS 07/03 10:14 Order name: Chest Single View EDMS 07/03 06:46 Order name: EKG; Complete Time: 06:47 sp4 07/03 10:02 Order name: EKG Electrocardiogram EDMS 07/03 06:46 Order name: Cardiac monitoring; Complete Time: 07:02 sp4 07/03 06:46 Order name: EKG - Nurse/Tech; Complete Time: 07:02 sp4 07/03 06:46 Order name: IV Saline Lock; Complete Time: 07:39 sp4 07/03 06:46 Order name: Labs collected and sent; Complete Time: 07:39 sp4 07/03 06:46 Order name: O2 Per Protocol; Complete Time: 07:02 4 07/03 06:46 Order name: O2 Sat Monitoring; Complete Time: 07:02 4 07/03 07:53 Order name: Vital Signs; Complete Time: 08:08 ec2 Administered Medications: 07:07 Drug: Albuterol Inhalation 2.5 mg Inhalation every 20 minutes x3 Route: Inhalation; ha1 07:39 Drug: Albuterol Inhalation 2.5 mg Inhalation every 20 minutes x3 Route: Inhalation; kc6 07:40 Drug: Albuterol Inhalation 2.5 mg Inhalation every 20 minutes x3 Route: Inhalation; kc6 08:08 Follow up: Response: No adverse reaction kc6 08:08 Drug: AZITHromycin PO 500 mg PO once Route: PO; kc6 08:45 Follow up: Response: No adverse reaction 6 08:23 Drug: Rocephin IV 1 grams IV at calculated rate once; Given slow IV push per pharmacy kc6 instructions Route: IV; Rate: calculated rate; Site: right forearm; 08:45 Follow up: Response: No adverse reaction; IV Status: Completed infusion; IV Intake: [id number] Disposition Summary: 07/03/23 09:14 Hospitalization Ordered Notes: Hospitalization Status: Inpatient Admission ec2 Provider: Ren Mcgraw Location: Telemetry/[facility] (Inpatient) ec2 Condition: Stable ec2 Problem: an acute exacerbation ec2 Symptoms: have worsened ec2 Bed/Room Type: Standard ec2 Room Assignment: [facility](07/03/23 11:10) eb Diagnosis - Sepsis, unspecified organism ec2 Forms: - Medication Reconciliation Form ec2 - SBAR form ec2 - Leadership Thank You Letter ec2 Critical care time excluding procedures: 08:47 Critical care time: Bedside Care: 35 minutes, Consultation: 5 minutes. Total time: 40 ec2 minutes Signatures: Dispatcher [employer] Krissy Park Heidy, RN RN ha1 Emelina Rodriguez RN RN kc6 Lexa Cross MD MD sp4 Ramesh Hardy MD MD ec2 Corrections: (The following items were deleted from the chart) 08:12 08:12 Patient medically screened. ec2 ec2 09:13 08:47 ED course: Lactic acid within normal ranges. Chest x-ray independently reviewed ec2 and interpreted by me, shows no acute intrathoracic process. We will admit the patient for COPD exacerbation, sepsis. I discussed case with hospitalist, pending admission.. ec2 10:19 10:14 Troponin High Sensitivity ordered. EDMS EDMS 11:10 09:14 ec2 eb
[2023-07-03] MEDS ORDERED: ONDANSETRON 4 MG/2 ML VIAL IV PRN (10:05)
[2023-07-03] MEDS ORDERED: IPRATROPIUM BROM 0.5MG/2.5ML NEB PRN (10:05)
[2023-07-03] MEDS ORDERED: ALBUTEROL 2.5 MG/3 ML NEB SOL NEB PRN ×2 (10:05→12:00)
--- NOTE | 2023-07-03 10:37 | P.HP ---
Certification for Inpatient Patient admitted to: Observation With expected LOS: <2 Midnights Patient will require the following post-hospital care: None Practitioner: I am a practitioner with admitting privileges, knowledge of patient current condition, hospital course, and medical plan of care. Services: Services provided to patient in accordance with Admission requirements found in Title 42 Section 412.3 of the Code of Federal Regulations <Lenny Farley - Last Filed: 07/03/23 10:42> Patient History Date of Service: 07/03/23 Reason for admission: Shortness of breath, COPD exacerbation History of Present Illness: Mr. Saleem Gomez, 62-year-old male with a history of atrial fibrillation, COPD, CVA, hypertension, hyperlipidemia presented to the emergency room with shortness of breath. Shortness of breath is worse with exertion, he reports associated with cough increasing with mild exertion for the last 3 days, dyspnea started worse this morning. Patient takes oxygen at home oxygen 2 L [id number]. Patient is a current everyday smoker half pack for many years. Patient reports his cough is nonproductive. Patient denies chest pain, abdominal pain, edema, fever, chills, nausea vomiting or diarrhea. ED course; vital signs 151/99, pulse 96, respiration 23, pulse ox 100% on on 10 L/min nonrebreather mask. Patient was given Solu-Medrol as well as DuoNeb. . Initial lab works and chest x-ray nonsignificant. Planning to admit the patient for acute hypoxic respiratory respiratory failure secondary to COPD exacerbation, and rule out sepsis, possible underlying pulmonary pathology causing lung infection. Home medications list reviewed: Yes - Past Medical/Surgical History Diabetic: No -: COPD -: Paroxysmal Afib -: HTN -: Tobacco abuse -: CVA -: skull fx -: defibrilator -: Home O2 -: Hx Hyponatremia (Dr. Hargrove/ Dr. Menjivar) -: Appendectomy Psychosocial/ Personal History: Patient lives with a girlfriend at home - Family History Father -: Diabetes Mother -: Diabetes - Social History Smoking Status: Current every day smoker (Half a pack for more than 30 years) Counseled patient to stop smoking for: less than 10 minutes Smoking therapy provided: Yes Patient receptive to therapy: Yes Alcohol use: No CD- Drugs: No Caffeine use: Yes <Lenny Farley - Last Filed: 07/03/23 10:42> Date of Service: 07/03/23 <Ren Mcgraw - Last Filed: 07/03/23 17:07> Allergies No Known Allergies Allergy (Verified 04/12/23 21:50) Home Medications: Benazepril HCl [Lotensin*] 10 mg PO DAILY #30 tab 03/14/18 Albuterol Neb [Proventil 0.083% Neb Soln] 1 inh Q4H PRN 03/20/23 Atorvastatin Calcium [Lipitor] 40 mg PO BEDTIME 03/20/23 Rivaroxaban [Xarelto*] 1 tab PO DAILY 03/20/23 Albuterol Neb [Proventil 0.083% Neb Soln] 2.5 mg NEB [id number] #60 amp 04/16/23 Ipratropium Neb [Atrovent*] 0.5 mg NEB [id number] #60 amp 04/16/23 Carvedilol [Coreg] 25 mg PO BID 05/29/23 Fluticasone [Flonase 50MCG Nasal [place]*] 1 spr CORNELIUS DAILY 05/29/23 Fluticasone/Umeclidin/Vilanter [Trelegy Ellipta 100-62.5-25] 1 each IH DAILY 30 Days #30 aero 06/03/23 acetaZOLAMIDE [Diamox*] 250 mg PO DAILY 30 Days #30 tab 06/03/23 predniSONE [Deltasone*] 10 mg PO DAILY 10 Days #20 tab 06/03/23 Roflumilast [Daliresp*] 500 mcg PO DAILY #30 tab 06/09/23 predniSONE [Deltasone] 20 mg PO BID #20 tab 06/09/23 Review of Systems 10-point ROS is otherwise unremarkable General: Weakness, Other (No fever no chills) Eyes: Unremarkable ENT: Unremarkable Respiratory: Cough, Dry, Shortness of Breath, SOB with Excertion (With mild exertion) Cardiovascular: Other (Denies chest pain palpitation, no edema) Gastrointestinal: Unremarkable Genitourinary: Unremarkable Musculoskeletal: Atrophy Integumentary: Other (Multiple bruises and ecchymotic spots on both arms) Neurological: Weakness (Analyzed) <Lenny Farley - Last Filed: 07/03/23 10:42> Physical Examination - Physical Exam General: Alert, Oriented x3, Cachectic HEENT: Atraumatic, Normocephalic, PERRLA Neck: 2+ carotid pulse no bruit Respiratory: Clear to auscultation bilaterally, Normal air movement, Diminished (Diminished at the bases) Cardiovascular: No edema, Normal pulses, Regular rate/rhythm, Normal S1 S2 Capillary refill: <2 Seconds Gastrointestinal: Normal bowel sounds, Hypoactive, Soft and benign, Non- distended, No ascites, No tenderness, No masses Musculoskeletal: No clubbing, No swelling, No contractures, No erythema, No tenderness, No warmth Integumentary: No rashes, No breakdown, No tenderness/swelling, No erythema, No warmth, No cyanosis, Other (Bilateral ecchymotic spots on both arms) Neurological: Normal speech, Normal strength at 5/5 x4 extr, Normal tone, Normal affect - Studies Laboratory Data (last 24 hrs) 07/03/23 07/03/23 07/03/23 07:30 07:30 07:30 WBC 8.00 Hgb 12.5 L Hct 37.5 L Plt Count 222 PT 12.0 INR 1.09 APTT 27.9 Sodium 139 Potassium 3.7 BUN 23 H Creatinine 0.78 Glucose 105 Magnesium 2.0 Total Bilirubin 0.5 AST < 4 L ALT 16 Alkaline Phosphatase 62 Lipase 34 <Lenny Farley - Last Filed: 07/03/23 10:42> - Studies Laboratory Data (last 24 hrs) 07/03/23 07/03/23 07/03/23 07:30 07:30 07:30 WBC 8.00 Hgb 12.5 L Hct 37.5 L Plt Count 222 PT 12.0 INR 1.09 APTT 27.9 Sodium 139 Potassium 3.7 BUN 23 H Creatinine 0.78 Glucose 105 Magnesium 2.0 Total Bilirubin 0.5 AST < 4 L ALT 16 Alkaline Phosphatase 62 Lipase 34 <Ren Mcgraw - Last Filed: 07/03/23 17:07> Assessment and Plan - Plan Assessment and plan Assessment Acute hypoxic respiratory failure secondary to COPD exacerbation Current tobacco use Sepsis Ecchymosis of both upper extremities Chronic diastolic heart failure Chronic A-fib History of CVA Hypertension Hyperlipidemia Plan Acute hypoxic respiratory failure secondary to COPD exacerbation Current tobacco use * Acute, patient came to the hospital with severe shortness of breath, patient is on home oxygen 2 L. Patient was given DuoNeb and Solu-Medrol [address] to the ER patient was given albuterol inhalation, azithromycin 500 mg p.o. once in the ER and IV Rocephin 1 g. * Patient's breathing is got better patient is on oxygen 2 L nasal cannula at this time SPO2 98%, no distress. Bilateral air entry is good,no wheezing. * Will admit the patient to monitor closely * pulmonary pulmonary consult with Dr. Li, discussed with Dr. Scales Sepsis * Acute patient noted to be tachypneic on the time patient came breathing rate was 823 with a heart rate 96 meet SIRS criteria * With the possible underlying pulmonary pathology causing lung infection * Septic initial work-up was done in the ER * Will continue to follow-up Ecchymosis of both upper extremities * Multiple echo hematic spots on both arms, patient denies any fall * May be due to anticoagulant use for long * Will continue to monitor Chronic diastolic heart failure * Chronic, on carvedilol 25 p.o. twice daily, Diamox to 50 mg p.o. daily * Trend BNP, telemetry * Resume home medication BNP Chronic A-fib * Chronic, controlled rate, anticoagulated on Xarelto 10 mg p.o. daily * Patient denies palpitation, chest pain or discomfort * Will continue on the current home medication History of CVA * Chronic, no residual weakness * Resume home medication Hypertension * Chronic, controlled on benazepril 10 mg p.o. daily and carvedilol 25 p.o. twice daily * GFR 100 * Will continue to monitor the blood pressure * Continue current medications CODE STATUS Full code Diet Cardiac DVT prophylaxis SCDs Patient on Xarelto Hyperlipidemia Discharge Plan: Home Plan to discharge in: 24 Hours - Advance Directives Does patient have a Living Will: No Does patient have a Durable POA for Healthcare: No - Code Status/Comfort Care Code Status Assessed: Yes (Full code) Code Status: Full Code Physician Review: Patient Assessed, Agree with Above Assessment and Plan Critical Care: Yes Time Spent Managing Pts Care (In Minutes): 55 (Minute) <Lenny Farley - Last Filed: 07/03/23 10:42> Physician Review Additional Text: 62 year old male admitted for a COPD exacerbation. Will treat with bronchodilators and steroids. Pulmonology consulted. He also mentions that his ICD fired a few days ago. Will interrogate device and consult Cardiology. Continue telemetry. <Ren Mcgraw - Last Filed: 07/03/23 17:07>
--- NOTE | 2023-07-03 11:44 | P.CNS ---
Date of Consult: 07/03/23 Reason for Consult: COPD exacerbation Chief Complaint: Shortness of breath, COPD exacerbation History of Present Illness: Patient is 62 years of age recurrent hospitalization was admitted again complaining of progressive dyspnea currently does not take any inhalers on it at home uses albuterol has O2 denies any cough congestion no lower extremity edema Allergies No Known Allergies Allergy (Verified 04/12/23 21:50) Home Medications: Benazepril HCl [Lotensin*] 10 mg PO DAILY #30 tab 03/14/18 Albuterol Neb [Proventil 0.083% Neb Soln] 1 inh Q4H PRN 03/20/23 Atorvastatin Calcium [Lipitor] 40 mg PO BEDTIME 03/20/23 Rivaroxaban [Xarelto*] 1 tab PO DAILY 03/20/23 Albuterol Neb [Proventil 0.083% Neb Soln] 2.5 mg NEB [id number] #60 amp 04/16/23 Ipratropium Neb [Atrovent*] 0.5 mg NEB [id number] #60 amp 04/16/23 Carvedilol [Coreg] 25 mg PO BID 05/29/23 Fluticasone [Flonase 50MCG Nasal [place]*] 1 spr CORNELIUS DAILY 05/29/23 Fluticasone/Umeclidin/Vilanter [Trelegy Ellipta 100-62.5-25] 1 each IH DAILY 30 Days #30 aero 06/03/23 acetaZOLAMIDE [Diamox*] 250 mg PO DAILY 30 Days #30 tab 06/03/23 predniSONE [Deltasone*] 10 mg PO DAILY 10 Days #20 tab 06/03/23 Roflumilast [Daliresp*] 500 mcg PO DAILY #30 tab 06/09/23 predniSONE [Deltasone] 20 mg PO BID #20 tab 06/09/23 - Past Medical/Surgical History Diabetic: No -: COPD -: Paroxysmal Afib -: HTN -: Tobacco abuse -: CVA -: skull fx -: defibrilator -: Home O2 -: Hx Hyponatremia (Dr. Hargrove/ Dr. Menjivar) -: Appendectomy Psychosocial/ Personal History: Patient lives with a girlfriend at home - Family History Father Medical History: Diabetes Mother Medical History: Diabetes - Social History Smoking Status: Current every day smoker Alcohol use: No CD- Drugs: No Caffeine use: Yes Physical Examination Laboratory Data (last 24 hrs) 07/03/23 07/03/23 07/03/23 07:30 07:30 07:30 WBC 8.00 Hgb 12.5 L Hct 37.5 L Plt Count 222 PT 12.0 INR 1.09 APTT 27.9 Sodium 139 Potassium 3.7 BUN 23 H Creatinine 0.78 Glucose 105 Magnesium 2.0 Total Bilirubin 0.5 AST < 4 L ALT 16 Alkaline Phosphatase 62 Lipase 34
[2023-07-03 13:14] LABS: Absolute Lymphocytes (CBC) 0.2 K/uL (0.7-4.9); Hematocrit 39.2 % (39.6-49.0); Lymphocytes % 2.8 % (15.3-44.8); MCV 95.1 fL (80-100); MPV 8.3 fL (7.6-11.3); Platelets 217 thou/uL (152-406); RBC Red Blood Cell Count 4.12 M/uL (4.33-5.43)
[2023-07-03 13:31] LABS: Magnesium 1.9 mg/dL (1.6-2.4); Phosphorus 2.5 mg/dL (2.5-4.9); Potassium 3.8 mEq/L (3.5-5.1)
[2023-07-03 13:34] VITALS: BMI 22.6
[2023-07-03] MEDS: IPRATROPIUM BROM 0.5MG/2.5ML NEB SCH ×2 (14:06→19:30)
[2023-07-03] MEDS: ALBUTEROL 2.5 MG/3 ML NEB SOL NEB SCH ×2 (14:06→19:30)
[2023-07-03 14:48] LABS: Platelet Estimate ADEQ; White Blood Cell Scan OK (OK)
[2023-07-03 14:49] LABS: Blood Morphology Comment NOTED (NOT SEEN); Polychromasia SLIGHT
[2023-07-03] MEDS: METHYLPREDNISOLONE 40 MG INJ IV SCH (16:34)
[2023-07-03] MEDS: NICOTINE 14 MG/PAT TD SCH (18:00)
[2023-07-03] MEDS: carvediloL 25 MG TAB PO SCH (21:04)
[2023-07-03] MEDS: ATORVASTATIN 40 MG TAB PO SCH (21:04)
[2023-07-03] MEDS ORDERED: MELATONIN 5 MG TABLET PO PRN (21:45)
[2023-07-04] MEDS: ALBUTEROL 2.5 MG/3 ML NEB SOL NEB SCH ×4 (01:30→19:20)
[2023-07-04] MEDS: IPRATROPIUM BROM 0.5MG/2.5ML NEB SCH ×4 (01:30→19:20)
[2023-07-04] MEDS: METHYLPREDNISOLONE 40 MG INJ IV SCH (02:19)
[2023-07-04 04:31] LABS: Absolute Lymphocytes (CBC) 0.5 K/uL (0.7-4.9); Hematocrit 33.5 % (39.6-49.0); Lymphocytes % 6.9 % (15.3-44.8); MPV 8.7 fL (7.6-11.3); Platelets 220 thou/uL (152-406); RBC Red Blood Cell Count 3.53 M/uL (4.33-5.43)
[2023-07-04 04:48] LABS: Potassium 3.8 mEq/L (3.5-5.1)
--- NOTE | 2023-07-04 05:15 | P.PN ---
Date of Service: 07/04/23 Subjective: Patient is doing well; no new complaints. Physical Exam: Vitals: reviewed GEN: Alert, oriented, NAD CV: Regular rate & rhythm, no edema Pulm: End expiratory wheezing ABD: Soft, nontender, nondistended MSK: No joint tenderness Integumentary: Bilateral ecchymotic spots on both arms Neuro: Normal speech, normal affect Problem List: -Acute hypoxic respiratory failure secondary to COPD exacerbation -Sepsis -Ecchymosis of both upper extremities -Chronic diastolic heart failure -Chronic A-fib -History of CVA -Hypertension -Hyperlipidemia PLAN -Continue diamox, DuoNebs, sulo-medrol; wean off steroids -given azithromycin in ED; continue rocephin -flonase added -on 2L NC; wean as tolerated -Follow cultures -continue carvedilol -Trend BNP, monitor on tele -continue xarelto -Confirm home medications, restart as appropriate
[2023-07-04] MEDS ORDERED: CEFTRIAXONE 1,000 MG in NA CHLORIDE 0.9% 50 ML IVPB SCH (09:00)
[2023-07-04] MEDS ORDERED: ROFLUMILAST 500 MCG TABLET PO SCH (09:00)
[2023-07-04] MEDS: HOME MED 1 EA UNK (Fluticasone/Umeclidin/Vilanter [Trelegy Ellipta 100-62.5-25] Blst.W.Dev IH SCH (09:00)
[2023-07-04] MEDS: NICOTINE 14 MG/PAT TD SCH (09:02)
[2023-07-04] MEDS: ROFLUMILAST 500 MCG TABLET PO SCH (09:03)
[2023-07-04] MEDS: BENAZEPRIL 10 MG TAB PO SCH (09:03)
[2023-07-04] MEDS: RIVAROXABAN 15 MG TABLET PO SCH (09:03)
[2023-07-04] MEDS: carvediloL 25 MG TAB PO SCH ×2 (09:04→21:56)
[2023-07-04] MEDS: predniSONE 20 MG TAB PO SCH ×2 (09:04→21:00)
[2023-07-04] MEDS: acetaZOLAMIDE 250 MG TAB PO SCH (09:05)
[2023-07-04] MEDS: FLUTICASONE 50MCG NASAL SPRAY NAS SCH (09:05)
--- NOTE | 2023-07-04 09:12 | RAD REPORT ---
EXAM DESCRIPTION: RADChest Single View07/04/2023 6:27 am CLINICAL HISTORY: Chest Pain COMPARISON: Chest Single View dated 07/03/2023; Chest Single View dated 06/09/2023; Chest Single View dated 06/07/2023; Chest Single View dated 05/28/2023 TECHNIQUE: Portable AP view of the chest. FINDINGS: The lungs are clear. Diffuse hyperinflation. Left chest wall pacer unchanged in position. No pneumothorax or effusion. The cardiomediastinal contours are unremarkable. IMPRESSION: No acute cardiopulmonary process.
[2023-07-04 11:15] LABS: Absolute Lymphocytes (CBC) 0.4 K/uL (0.7-4.9); Hematocrit 35.2 % (39.6-49.0); Lymphocytes % 4.3 % (15.3-44.8); MPV 8.7 fL (7.6-11.3); Platelets 226 thou/uL (152-406)
[2023-07-04 11:24] LABS: Phosphorus 2.7 mg/dL (2.5-4.9); Potassium 3.6 mEq/L (3.5-5.1)
--- NOTE | 2023-07-04 12:16 | P.PN ---
Subjective Date of Service: 07/04/23 Chief Complaint: COPD exacerbation Subjective: Improving (Patient is improving doing well) Review of Systems General: Weakness Respiratory: Shortness of Breath Physical Examination - Vital Signs Temperature: 98.0 F Blood Pressure: 140/84 Pulse: 84 Respirations: 16 Pulse Ox (%): 97 - Physical Exam General: Alert Respiratory: Clear to auscultation bilaterally, Diminished Cardiovascular: No edema, Regular rate/rhythm, Normal S1 S2 Assessment And Plan - Current Problems (Diagnosis) (1) COPD exacerbation Current Visit: No Status: Acute Plan: Patient is 62 years of age admitted with COPD exacerbation recurrent hospitalization and Jover to p.o. prednisone add Daliresp patient does take trilogy at home Labs reviewed no acute changes on chest x-ray plan for discharge tomorrow on prednisone 10 twice a day Daliresp Physician Review: Patient Assessed, Agree with Above Assessment and Plan
--- NOTE | 2023-07-04 17:05 | EKG ---
Test Date: 2023-07-03 Test Time: 07:02:35 Medical Physics Professor: CATHERINE MEASUREMENT RESULTS: Intervals: Rate: 87 GA: 140 QRSD: 80 QT: 358 QTc: 430 [place]: P: 86 GA: 140 QRS: 83 T: 93 INTERPRETIVE STATEMENTS: Normal sinus rhythm ST elevation, consider early repolarization, pericarditis, or injury Abnormal ECG Compared to ECG 07/03/2023 07:01:36 No significant changes Electronically Signed On 07-04-23 17:03:38 CDT by Ric Pandya
--- NOTE | 2023-07-04 17:05 | EKG ---
Test Date: 2023-07-03 Test Time: 07:01:36 Armhole Baster Jumpbasting: CATHERINE MEASUREMENT RESULTS: Intervals: Rate: 88 IN: 140 QRSD: 82 QT: 382 QTc: 462 [place]: P: 87 IN: 140 QRS: 84 T: 93 INTERPRETIVE STATEMENTS: Normal sinus rhythm ST elevation, consider early repolarization, pericarditis, or injury Abnormal ECG Compared to ECG 06/09/2023 01:22:37 Atrial abnormality no longer present ST (T wave) deviation still present Electronically Signed On 07-04-23 17:03:40 CDT by Ric Pandya
[2023-07-04] MEDS: ATORVASTATIN 40 MG TAB PO SCH (21:56)
--- NOTE | 2023-07-04 22:31 | CON ---
Date of Consultation: 07/04/2023 Reason For Consultation: ICD shock. History Of Present Illness: This is a 62-year-old male with history of atrial fibrillation, COPD, CV A, hypertension, dyslipidemia, who presented with shortness of breath. He said that he had an ICD sh ock about 4 days ago, but nothing recently. It was checked twice and I was consulted. No recent melody ck other than those 2 shocks that happened 4 days ago. Past Medical History: As outlined above in the HPI. Medications: Refer reconciliation sheet for detailed list. Allergies: NO KNOWN DRUG ALLERGIES. Family History: No premature coronary artery disease or cancer. Social History: He is a smoker. Does not drink or use any drugs. Review of Systems: All systems reviewed and they were negative except as mentioned in the HPI. Physical Examination: Vital Signs: Reviewed. Head and Neck: Pupils are equal, reactive to light. Intact eye movements. No JVD. No cervical lym phadenopathy. Neck is supple. Thyroid is not enlarged. Lungs: Decreased breathing sounds bilaterally. No accessory muscle use or muscle retraction. Scatt ered wheezing. Heart: Irregular. No extra sounds. Abdomen: Soft, nontender. Bowel sounds positive. No organomegaly. No masses or hernia. No rigidi ty or rebound. Extremities: No edema, clubbing, or cyanosis. Intact pulses. Skin: No rashes or nodules. Neurologic: Alert, awake, oriented x3. No acute focal deficits appreciated. Investigations: Potassium 3.6, BUN 30, creatinine 0.6, and magnesium is 2. Cardiac enzymes negative . Assessment And Recommendations: 1.ICD shock happened 4 days ago to interrogate the device to see what kind of rhythm it is, as he osorio s atrial fibrillation. This could be atrial fibrillation with rapid ventricular response. We will p karlos on providing recommendations accordingly and please obtain an echo and ICD check. 2.Chronic obstructive pulmonary disease exacerbation and gradually improving. Continue current zoya gement. 3.Dyslipidemia. Continue statin. SR/MODL Voice ID: [id number] Report ID: [id number]
[2023-07-05] MEDS: IPRATROPIUM BROM 0.5MG/2.5ML NEB SCH ×4 (01:25→20:30)
[2023-07-05] MEDS: ALBUTEROL 2.5 MG/3 ML NEB SOL NEB SCH ×4 (01:25→20:30)
[2023-07-05] MEDS: NICOTINE 14 MG/PAT TD SCH (08:23)
[2023-07-05] MEDS: BENAZEPRIL 10 MG TAB PO SCH (08:24)
[2023-07-05] MEDS: RIVAROXABAN 15 MG TABLET PO SCH (08:24)
[2023-07-05] MEDS: acetaZOLAMIDE 250 MG TAB PO SCH (08:24)
[2023-07-05] MEDS: ROFLUMILAST 500 MCG TABLET PO SCH (08:24)
[2023-07-05] MEDS: FLUTICASONE 50MCG NASAL SPRAY NAS SCH (08:25)
[2023-07-05] MEDS: carvediloL 25 MG TAB PO SCH ×2 (08:25→20:58)
[2023-07-05] MEDS: predniSONE 20 MG TAB PO SCH ×2 (08:25→20:58)
[2023-07-05] MEDS: HOME MED 1 EA UNK (Fluticasone/Umeclidin/Vilanter [Trelegy Ellipta 100-62.5-25] Blst.W.Dev IH SCH (09:00)
[2023-07-05 14:26] LABS: Absolute Lymphocytes (CBC) 0.3 K/uL (0.7-4.9); Hematocrit 34.2 % (39.6-49.0); Lymphocytes % 3.7 % (15.3-44.8); MCV 95.7 fL (80-100); MPV 8.5 fL (7.6-11.3); Platelets 199 thou/uL (152-406); RBC Red Blood Cell Count 3.57 M/uL (4.33-5.43)
[2023-07-05 14:40] LABS: Potassium 3.5 mEq/L (3.5-5.1)
[2023-07-05] MEDS: ATORVASTATIN 40 MG TAB PO SCH (20:59)
[2023-07-06] MEDS: ALBUTEROL 2.5 MG/3 ML NEB SOL NEB SCH ×3 (01:30→14:00)
[2023-07-06] MEDS: IPRATROPIUM BROM 0.5MG/2.5ML NEB SCH ×3 (01:30→14:00)
[2023-07-06] MEDS: ACETAMINOPHEN 500 MG TAB PO PRN ×2 (08:58→18:40)
[2023-07-06] MEDS: ROFLUMILAST 500 MCG TABLET PO SCH (08:59)
[2023-07-06] MEDS: NICOTINE 14 MG/PAT TD SCH (08:59)
[2023-07-06] MEDS: carvediloL 25 MG TAB PO SCH ×2 (08:59→20:11)
[2023-07-06] MEDS: predniSONE 20 MG TAB PO SCH ×2 (08:59→20:12)
[2023-07-06] MEDS: acetaZOLAMIDE 250 MG TAB PO SCH (08:59)
[2023-07-06] MEDS: BENAZEPRIL 10 MG TAB PO SCH (08:59)
[2023-07-06] MEDS: RIVAROXABAN 15 MG TABLET PO SCH (09:00)
[2023-07-06] MEDS: HOME MED 1 EA UNK (Fluticasone/Umeclidin/Vilanter [Trelegy Ellipta 100-62.5-25] Blst.W.Dev IH SCH (09:00)
[2023-07-06] MEDS: FLUTICASONE 50MCG NASAL SPRAY NAS SCH (09:00)
--- NOTE | 2023-07-06 10:58 | ECHO ---
HEIGHT: 5 ft 6 in WEIGHT: 140 lb 0 oz DATE OF STUDY: 07/05/[address]: Ric Pandya 2-DIMENSIONAL: YES M.MODE: YES DOPPLER: YES COLOR FLOW: YES TDS: PORTABLE: DEFINITY: BUBBLE STUDY: DIAGNOSIS: CONGESTIVE HEART FAILURE CARDIAC HISTORY: CATHERIZATION: SURGERY: PROSTHETIC VALVE: PACEMAKER: MEASUREMENTS (cm) DIASTOLIC (NORMALS) SYSTOLIC (NORMALS) IVSd 1.1 (0.6-1.2) LA Diam 1.5 (1.9-4.0) LVEF 56% LVIDd 3.9 (3.5-5.7) LVIDs 2.8 (2.0-3.5) %FS 29% LVPWd 1.2 (0.6-1.2) Ao Diam 3.0 (2.0-3.7) 2 DIMENSIONAL ASSESSMENT: RIGHT ATRIUM: NORMAL LEFT ATRIUM: NORMAL RIGHT VENTRICLE: NORMAL LEFT VENTRICLE: NORMAL TRICUSPID VALVE: MILD TRICUSPID REGURGITATION MITRAL VALVE: NORMAL PULMONIC VALVE: NORMAL AORTIC VALVE: NORMAL PERICARDIAL EFFUSION: NONE AORTIC ROOT: NORMAL LEFT VENTRICULAR WALL MOTION: NORMAL DOPPLER/COLOR FLOW: SEE BELOW COMMENTS: 1. NORMAL LEFT VENTRICULAR EJECTION FRACTION 55-60% 2. POOR WINDOWS TECHNOLOGIST: SAGRARIO WATT
[2023-07-06] MEDS ORDERED: AMIODARONE HCL 150 MG in D5W 100 ML IV STA (16:52)
[2023-07-06] MEDS ORDERED: AMIODARONE HCL 900 MG in Dextrose 5%-Water 482 ML IV SCH (17:00)
[2023-07-06] MEDS ORDERED: CALCIUM CARBONATE CHEW 500MG TAB PO PRN (19:30)
[2023-07-06] MEDS: ATORVASTATIN 40 MG TAB PO SCH (20:11)
[2023-07-07] MEDS: IPRATROPIUM BROM 0.5MG/2.5ML NEB SCH ×2 (08:00→13:53)
[2023-07-07] MEDS: ALBUTEROL 2.5 MG/3 ML NEB SOL NEB SCH ×2 (08:00→13:53)
[2023-07-07] MEDS: BENAZEPRIL 10 MG TAB PO SCH (08:23)
[2023-07-07] MEDS: carvediloL 25 MG TAB PO SCH (08:23)
[2023-07-07] MEDS: acetaZOLAMIDE 250 MG TAB PO SCH (08:24)
[2023-07-07] MEDS: ROFLUMILAST 500 MCG TABLET PO SCH (08:24)
[2023-07-07] MEDS: NICOTINE 14 MG/PAT TD SCH (08:24)
[2023-07-07] MEDS: FLUTICASONE 50MCG NASAL SPRAY NAS SCH (08:24)
[2023-07-07] MEDS: RIVAROXABAN 15 MG TABLET PO SCH (08:24)
[2023-07-07] MEDS: predniSONE 20 MG TAB PO SCH (08:24)
[2023-07-07] MEDS: HOME MED 1 EA UNK (Fluticasone/Umeclidin/Vilanter [Trelegy Ellipta 100-62.5-25] Blst.W.Dev IH SCH (09:00)
[2023-07-07 09:29] VITALS: O2SAT 100
[2023-07-07 12:27] VITALS: BP 99/62; TEMP 97.7
--- NOTE | 2023-07-07 13:38 | EKG ---
Test Date: 2023-07-06 Test Time: 17:15:38 Graphics Editor: JAZMYN MEASUREMENT RESULTS: Intervals: Rate: 87 [place]: QRSD: 92 QT: 358 QTc: 430 [place]: P: 75 LA: QRS: 80 T: 90 INTERPRETIVE STATEMENTS: Normal sinus rhythm Nonspecific ST and T wave abnormality Abnormal ECG Compared to ECG 07/03/2023 07:02:35 ST (T wave) deviation still present Electronically Signed On 07-07-23 13:36:44 CDT by Ric Pandya
--- NOTE | 2023-07-07 16:08 | PN ---
Date of Progress Note: 07/07/2023 Subjective: No chest pain, shortness of breath, orthopnea, or cough. All other systems were reviewe d, they were negative. Physical Examination: Vital Signs: Reviewed. Head and Neck: Pupils are equal, reactive to light. Intact eye movements. No JVD. No cervical lym phadenopathy. Neck is supple. Thyroid is not enlarged. Lungs: Clear to auscultation bilaterally. No rhonchi, wheezing, or crackles. No accessory muscle u se. Heart: Regular rate and rhythm. No extra sounds. Abdomen: Soft, nontender. Bowel sounds positive. No organomegaly. No masses or hernia. No rigidi ty or rebound. Extremities: No edema, clubbing, or cyanosis. Intact pulses. Skin: No rash or nodule. Neuro: Alert, awake, oriented x3. No acute focal deficits appreciated. Investigation: Labs were reviewed. Assessment And Recommendations: ICD shock. The interrogation revealed that it was due to atrial fib rillation. Recommend to be loaded with amiodarone which he was, and once the amiodarone 24 hours' lo ad is complete, he can be released with 200 mg by mouth daily. In the future, the dose can be cut do wn gradually dose of beta-chani. SR/MODL Voice ID: [id number] Report ID: [id number]
== END 2023-07-07 13:00 | disposition home or self-care (01) | DRG 871 ==
LOC: ER 06:35 → ERHOLD 09:56 → INTOOBSV 09:56 → 2ND 11:59 → OBSVTOIN 07-05 17:26
PROVIDERS: ADMIT Internal Medicine; ATTEND Hospitalist
DX: A41.9 Sepsis, unspecified organism (principal); J96.01 Acute respiratory failure with hypoxia; J44.1 Chronic obstructive pulmonary disease with (acute) exacerbation; R64 Cachexia; I50.32 Chronic diastolic (congestive) heart failure; I11.0 Hypertensive heart disease with heart failure; E78.5 Hyperlipidemia, unspecified; I48.0 Paroxysmal atrial fibrillation; I25.2 Old myocardial infarction; F17.210 Nicotine dependence, cigarettes, uncomplicated; Z90.49 Acquired absence of other specified parts of digestive tract; Z99.81 Dependence on supplemental oxygen; Z68.22 Body mass index [BMI] 22.0-22.9, adult; Z86.73 Personal history of transient ischemic attack (TIA), and cerebral infarction without residual deficits; Z79.01 Long term (current) use of anticoagulants; Z79.02 Long term (current) use of antithrombotics/antiplatelets; Z79.52 Long term (current) use of systemic steroids; Z79.899 Other long term (current) drug therapy; Z95.810 Presence of automatic (implantable) cardiac defibrillator
CPT/HCPCS: 36415; 71045; 80048; 80061; 80076; 82550; 83605; 83690; 83735; 83880; 84100; 84484; 85025; 85610; 85730; 87040; 93005; 93306; 94010; 94640; 94760; 96365; 99285; G0378; J0282; J0696; J2920; J7060; J7512; J7613; J7644

== ENCOUNTER 2023-08-19 02:41 | Observation (INO) | payer OTHER ==
--- OUTSIDE RECORDS SUMMARY | 2023-08-19 02:57 | XMS REPORT | Continuity of Care Document ---
:1960 Author Organization [facility] t Address [address] [facility] [address] [place] [address] Care Team Providers Name Role Phone MILY [...] MILY GOODWIN Attending Clinician Unavailable Doctor Unassigned, [place] Attending Clinician Unavailable Mily Goodwin MD Attending Clinician [phone] Alma Rosa9 Taylor Frye RN Attending Clinician Unavailable TRAVIS [...] Unavailable Leila Chapa MD Attending Clinician Violeta GROUNDWATER MONITORING TECHNICIANJeanette Faith Attending Clinician Pob, Adc Lab Main Attending Clinician Unavailable Gokul Turner MD Attending Clinician GOKUL TURNER Attending Clinician Unavailable , Adc Surg Spec Procedure Attending Clinician Unavailable JEANETTE MCDANIEL Attending Clinician Unavailable Chris ZAMORA, Herminia Apple [...] Policy Number Effective Date Expiration Date S 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 5-31 it y of ion ion 00:00: [address] Hypotensio Hypotensio Disease Active U barers [...] Active 2018-09 Univers 2-07 ity of 00:00: [place] 00 Medical Branch Acute Acute Disease Active 2018-09 Univers respirator respirator 2-07 it y of y distress [place] 00:00[place] Left heart Left heart Disease Active 2013-09 U nivers failure failure 2-23 ity of 00:00: [place] 00 Medical Branch Closed Closed Disease Active 2013-09 Overview: Univer s fracture fracture 2- Formattin ity of of zygoma of zygoma 00:00: g of this [place] 00 note Medical might be Branch different from the original. Chronic Fracture - not acute Fall Fall Disease Active 2013-09 Univers 2-12 ity of 00:00: [place] [address] Medical Branch Atrial Atrial Disease Active 2013-09 Univers fibrillati fibrillati 2 it y of on on 00:00: [place] [address] Medical Branch VT VT Disease Active 2013-09 Univers (ventricul (ventricul 10-28 it y of ar ar 00:00: [place] tachycardi tachycardi 00 Me dical a) a) Branch Allergies, Adverse Reactions, Alerts Allergy Allergy Status Severity Reaction(s) Onset Inactive Treating Comm ents Source Name Type Date Date Clinician No Known DA Active U 2019-09 [facility] [place] 00:[facility]: [address] No Known DA Active U 2019-09 [facility] Allergie 0-01 [place] 00:00: [address] NO KNOWN Drug Active [facility] ALLERGIE Class ity of S [place] [facility] Social History Social Habit Start Date Stop Date Quantity Comments Source Gender identity Universit y of [facility] Branch Sexual orientation Univer sity of [place] [facility] History of tobacco Passive smoker Un iversity of use [place] [facility] History SDOH Social Unive rsity of Connections [facility] Med ical Together Branch History SDOH Social Unive rsity of Connections [facility] History SDOH Social Unive rsity of Connections [place] [facility] Membership Branch History SDOH Social Unive rsity of [facility] Medical Meetings Branch History of Social 2023-03-01 2023-03-01 Univers ity of function 00:00:00 00:00:00 [place] [facility] Alcohol intake 2023-03-01 2023-03-01 Current drinker Unive rsity of 00:00:00 00:00:00 of alcohol [place] Medical (finding) Branch History SDOH 2023-02-18 2023-02-18 2 University o f Housing Unable to 00:00:00 00:00:00 [place] M edical Pay Branch History SDOH 2023-02-18 2023-02-18 1 University o f Housing Places 00:00:00 00:00:00 [place] Medi lucho Lived Branch History SDOH 2023-02-18 2023-02-18 2 University o f Housing Homeless 00:00:00 00:00:00 [place] Me dical Last Year Branch History SDOH 2023-02-18 2023-02-18 1 University o f Alcohol Frequency 00:00:00 00:00:00 [place] M edical Branch History SDOH Social 2023-02-18 2023-02-18 5 Unive rsity of Connections Phone 00:00:00 00:00:00 [place] M edical Branch History SDOH Social 2023-02-18 2023-02-18 7 Unive rsity of Connections Living 00:00:00 00:00:00 [place] [facility] History SDOH 2023-02-18 2023-02-18 0 University o f Physical Activity 00:00:00 00:00:00 [place] M edical DPW Branch History SDOH 2023-02-18 [...] University o f Transport Non-Med 00:00:00 00:00:00 [place] M edical Branch Exposure to 2023-02-05 2023-02-15 Not sure University of SARS-CoV-2 (event) 00:00:00 15:15:00 [place] [facility] History SDOH 2022-12-02 2022-12-02 3 University o f Alcohol Std Drinks 00:00:00 00:00:00 [place] [facility] History SDOH 2022-12-02 2022-12-02 1 University o f Alcohol Binge 00:00:00 00:00:00 [place] Medic al Branch Cigarettes smoked 2022-11-09 2022-11-09 Univers ity of current (pack per 00:00:00 00:00:00 [facility] ) - Reported Branch Tobacco use and 2022-11-09 2022-11-09 User of Universit y of exposure 00:00:00 00:00:00 smokeless [facility] tobacco Branch Education 2022-11-09 2022-11-09 13 University of 00:00:00 00:00:00 [facility] Alcohol Comment 2014-08-27 2014-08-27 8 drinks per day Uni versity of 00:00:00 00:00:00 [facility] Sex [birth year] [facility] 00[facility]00:00 [facility] Smoking Status Start Date Stop Date Source Smokes tobacco daily 2022-11-09 00:00:00 [facility] ity of [facility] Medications Ordered Filled Start Stop Current Ordering Indication Dosage Frequency Signature Comments Components Source Medication Medication Date Date Medication? Clinician (SIG) Name Name khadar 2022-09 Yes [id number] 1{puff} Inhale 1 Univers m (INCRUSE 0-27 Puff in ity of ELLIPTA) 00:00: the [place] 62.5 00 morning. Medical mcg/actuati Branch on DsDv tiotropium 2022-09 Yes 18ug Inhale 1 Uni vers 18 mcg 0-20 capsule in ity of inhalation 00:00: the [place] 00 morning. Medical Branch tiotropium 2022-09 Yes 18ug Inhale 1 Uni vers 18 mcg 0-20 capsule in ity of inhalation 00:00: the [place] 00 morning. Medical Branch fluticasone Yes 1{puff} Inhale 1 Univers propion-bella 8-01 Puff in ity o f meteroL 00:00: the [place] (ADVAIR 00 morning Medical DISKUS) and 1 Puff Branch 250-50 in the mcg/dose evening. inhalation disk tiotropium 2023-0 Yes 18ug Inhale 1 Uni vers 18 mcg 8-01 capsule in ity of inhalation 00:00: the 00 morning. Medical Branch albuterol 3-0 Yes 2{puff} Inhale 2 U nivers 90 8-01 Puffs ity of mcg/actuati 00:00: every 4 [place] as on inhaler 00 (four) Medical hours as Branch needed for Wheezing or Shortness of Breath. ipratropium 2023-0 Yes [id number] 3mL Inhale 3 Univers -albuteroL 8-01 mL every 6 ity of 0.5 mg-3 00:00: (six) [place] mg(2.5 mg 00 hours as Medica l base)/3 mL needed for Bra nch nebulizer Wheezing. solution fluticasone 2023-0 Yes 1{puff} Inhale 1 Univers propion-bella 8-01 Puff in ity o f meteroL 00:00: the [place] (ADVAIR 00 morning Medical DISKUS) and 1 Puff Branch 250-50 in the mcg/dose evening. inhalation disk tiotropium 2023-0 Yes 18ug Inhale 1 Uni vers 18 mcg 8-01 capsule in ity of inhalation 00:00: the [place] 00 morning. Medical Branch albuterol 3-0 Yes 2{puff} Inhale 2 U nivers 90 8-01 Puffs ity of mcg/actuati 00:00: every 4 [place] as on inhaler 00 (four) Medical hours as Branch needed for Wheezing or Shortness of Breath. ipratropium 2023-0 Yes [id number] 3mL Inhale 3 Univers -albuteroL 8-01 mL [...] the [place] 00 morning. Medical Branch albuterol 2022-0 Yes 2{puff} Inhale 2 U nivers 90 8-01 Puffs ity of mcg/actuati 00:00: every 4 [place] as on inhaler 00 (four) Medical hours as Branch needed for Wheezing or Shortness of Breath. ipratropium 3-0 Yes [id number] 3mL Inhale 3 Univers -albuteroL 8-01 mL every 6 ity of 0.5 mg-3 00:00: (six) [place] mg(2.5 mg 00 hours as Medica l base)/3 mL needed for Bra nch nebulizer Wheezing. solution fluticasone 2022-0 Yes 1{puff} Inhale 1 Univers propion-bella 8-01 Puff in ity o f meteroL 00:00: the [place] (ADVAIR 00 morning Medical DISKUS) and 1 Puff Branch 250-50 in the mcg/dose evening. inhalation disk albuterol 2022-0 Yes 2{puff} Inhale 2 U nivers 90 8-01 Puffs ity of mcg/actuati 00:00: every 4 [place] as on inhaler 00 (four) Medical hours as Branch needed for Wheezing or Shortness of Breath. ipratropium 3-0 Yes [id number] 3mL Inhale 3 Univers -albuteroL 8-01 mL every 6 ity of 0.5 mg-3 00:00: (six) [place] mg(2.5 mg 00 hours as Medica l base)/3 mL needed for Bra nch nebulizer Wheezing. solution fluticasone 2022-0 Yes 1{puff} Inhale 1 Univers propion-bella 8-01 Puff in ity o f meteroL 00:00: the [place] (ADVAIR 00 morning Medical DISKUS) and 1 Puff Branch 250-50 in the mcg/dose evening. inhalation disk albuterol 2022-0 Yes 2{puff} Inhale 2 U nivers 90 8-01 Puffs ity of mcg/actuati 00:00: every 4 [place] as on inhaler 00 (four) Medical hours as Branch needed for Wheezing or Shortness of Breath. ipratropium 3-0 Yes [id number] 3mL Inhale 3 Univers -albuteroL 8-01 mL every 6 ity of 0.5 mg-3 00:00: (six) [place] mg(2.5 mg 00 hours as Medica l base)/3 mL needed for Bra [facility] nebulizer Wheezing. solution tiotropium 2022- No 18ug Inhale 1 Un igor 18 mcg 8- 10-20 capsule in ity of inhalation 00:00: 00:00 the [place] 00 :00 morning. Medical Branch albuterol 2022-0 Yes [id number] 2.5mg Inhale 3 Univers 2.5 mg /3 6-15 mL every 4 ity of mL (0.083 00:00: (four) [place] %) 00 hours. May Medical nebulizer also Branch solution nebulize one extra every 6 hours. albuterol 2022-0 Yes [id number] 2.5mg Inhale 3 Univers 2.5 mg /3 6-15 mL every 4 ity of mL (0.083 00:00: (four) [place] %) 00 hours. May Medical nebulizer also Branch solution nebulize one extra every 6 hours. albuterol 2022-0 Yes [id number] 2.5mg Inhale 3 Univers 2.5 mg /3 6-15 mL every 4 ity of mL (0.083 00:00: (four) [place] %) 00 hours. May Medical nebulizer also Branch solution nebulize one extra every 6 hours. albuterol 2022-0 Yes [id number] 2.5mg Inhale 3 Univers 2.5 mg /3 6-15 mL every 4 ity of mL (0.083 00:00: (four) [place] %) 00 hours. May Medical nebulizer also Branch solution nebulize one extra every 6 hours. albuterol 2022-0 Yes [id number] 2.5mg Inhale 3 Univers 2.5 mg /3 6-15 mL every 4 ity of mL (0.083 00:00: (four) [place] %) 00 hours. May Medical nebulizer also Branch solution nebulize one extra every 6 hours. albuterol 2022-0 Yes [id number] 2.5mg Inhale 3 Univers 2.5 mg /3 6-15 mL every 4 ity of mL (0.083 00:00: (four) [place] %) 00 hours. May Medical nebulizer also Branch solution nebulize one extra every 6 hours. donepeziL 5 2022-0 Yes [id number] 5mg Take 1 Univers mg tablet 6-13 tablet by ity o f 00:00: mouth in [place] 00 the Medical morning. Branch memantine 5 2022-0 Yes [id number] 5mg Take 1 Univers mg tablet 6-13 tablet by ity o f 00:00: mouth in [place] 00 the Medical morning. Branch donepeziL 5 2022-0 Yes [id number] 5mg Take 1 Univers mg tablet 6-13 tablet by ity o f 00:00: mouth in [place] 00 the Medical morning. Branch memantine 5 2022-0 Yes [id number] 5mg Take 1 Univers mg tablet 6-13 tablet by ity o f 00:00: mouth in [place] 00 the Medical morning. Branch donepeziL 5 2022-0 Yes [id number] 5mg Take 1 Univers mg tablet 6-13 tablet by ity o f 00:00: mouth in [place] the Medical morning. Branch memantine 5 2022-0 Yes [id number] 5mg Take 1 Univers mg tablet 6-13 tablet by ity o f 00:00: mouth in [place] the Medical morning. Branch donepeziL 5 2022-0 Yes [id number] 5mg Take 1 Univers mg tablet 6-13 tablet by ity o f 00:00: mouth in [place] the Medical morning. Branch memantine 5 2022-0 Yes [id number] 5mg Take 1 Univers mg tablet 6-13 tablet by ity o f 00:00: mouth in [place] 00 the Medical morning. Branch donepeziL 5 2022-0 Yes [id number] 5mg Take 1 Univers mg tablet 6-13 tablet by ity o f 00:00: mouth in [place] 00 the Medical morning. Branch memantine 5 2022-0 Yes [id number] 5mg Take 1 Univers mg tablet 6-13 tablet by ity o f 00:00: mouth in [place] 00 the Medical morning. Branch donepeziL 5 2022-0 Yes [id number] 5mg Take 1 Univers mg tablet 6-13 tablet by ity o f 00:00: mouth in [place] 00 the Medical morning. Branch memantine 5 2022-0 Yes [id number] 5mg Take 1 Univers mg tablet 6-13 tablet by ity o f 00:00: mouth in [place] 00 the Medical morning. Branch donepeziL 5 3-0 Yes [id number] 5mg Take 1 Univers mg tablet 6-13 tablet by ity o f 00:00: mouth in [place] 00 the Medical morning. Branch memantine 5 2022-0 Yes [id number] 5mg Take 1 Univers mg tablet 6-13 tablet by ity o f 00:00: mouth in [place] 00 the Medical morning. Branch donepeziL 5 3-0 Yes [id number] 5mg Take 1 Univers mg tablet 6-13 tablet by ity o f 00:00: mouth in [place] 00 the Medical morning. Branch memantine 5 2022-0 Yes [id number] 5mg Take 1 Univers mg tablet 6-13 tablet by ity o f 00:00: mouth in [place] 00 the Medical morning. Branch busPIRone 3-0 Yes 10mg Take 1 Univer s 10 mg 6-02 tablet by ity of tablet 16:15: mouth in [place] [address] the Medical morning Branch and 1 tablet in the evening. rivaroxaban 3-0 Yes 15mg Take 1 Univ ers 15 mg 6-02 tablet by ity of tablet 16:15: mouth in [place] [address] the Medical morning. Branch ASPIRIN 3-0 Yes 81mg Take 81 mg Univ ers ORAL 6-02 by mouth ity of 16:15: in the [place] [address] morning. Medical tablet Branch busPIRone 3-0 Yes 10mg Take 1 Univer s 10 mg 6-02 tablet by ity of tablet 16:15: mouth in [place] [address] the Medical morning Branch and 1 tablet in the evening. rivaroxaban 3-0 Yes 15mg Take 1 Univ ers 15 mg 6-02 tablet by ity of tablet 16:15: mouth in [place] [address] the Medical morning. Branch ASPIRIN 2023-0 Yes 81mg Take 81 mg Univ ers ORAL 6-02 by mouth ity of 16:15: in the [place] [address] morning. Medical tablet Branch busPIRone 3-0 Yes 10mg Take 1 Univer s 10 mg 6-02 tablet by ity of tablet 16:15: mouth in [place] [address] the Medical morning Branch and 1 tablet in the evening. rivaroxaban 2023-0 Yes 15mg Take 1 Univ ers 15 mg 6-02 tablet by ity of tablet 16:15: mouth in [place] [address] the Medical morning. Branch ASPIRIN 2023-0 Yes 81mg Take 81 mg Univ ers ORAL 6-02 by mouth ity of 16:15: in the [place] [address] morning. Medical tablet Branch busPIRone 2023-0 Yes 10mg Take 1 Univer s 10 mg 6-02 tablet by ity of tablet 16:15: mouth in [place] [address] the Medical morning Branch and 1 tablet in the evening. rivaroxaban 2023-0 Yes 15mg Take 1 Univ ers 15 mg 6-02 tablet by ity of tablet 16:15: mouth in [place] [address] the Medical morning. Branch ASPIRIN 2023-0 Yes 81mg Take 81 mg Univ ers ORAL 6-02 by mouth ity of 16:15: in the [place] [address] morning. Medical tablet Branch busPIRone 2023-0 Yes 10mg Take 1 Univer s 10 mg 6-02 tablet by ity of tablet 16:15: mouth in [place] [address] the Medical morning Branch and 1 tablet in the evening. rivaroxaban 2023-0 Yes 15mg Take 1 Univ ers 15 mg 6-02 tablet by ity of tablet 16:15: mouth in [place] [address] the Medical morning. Branch ASPIRIN 2023-0 Yes 81mg Take 81 mg Univ ers ORAL 6-02 by mouth ity of 16:15: in the [place] [address] morning. Medical tablet Branch busPIRone 3-0 Yes 10mg Take 1 Univer s 10 mg 6-02 tablet by ity of tablet 16:15: mouth in [place] [address] the Medical morning Branch and 1 tablet in the evening. rivaroxaban 2023-0 Yes 15mg Take 1 Univ ers 15 mg 6-02 tablet by ity of tablet 16:15: mouth in [place] [address] the Medical morning. Branch ASPIRIN 2023-0 Yes 81mg Take 81 mg Univ ers ORAL 6-02 by mouth ity of 16:15: in the [place] [address] morning. Medical tablet Branch busPIRone 2023-0 Yes 10mg Take 1 Univer s 10 mg 6-02 tablet by ity of tablet 16:15: mouth in [place] [address] the Medical morning Branch and 1 tablet in the evening. rivaroxaban 2023-0 Yes 15mg Take 1 Univ ers 15 mg 6-02 tablet by ity of tablet 16:15: mouth in [place] [address] the Medical morning. Branch ASPIRIN 2023-0 Yes 81mg Take 81 mg Univ ers ORAL 6-02 by mouth ity of 16:15: in the [place] [address] morning. Medical tablet Branch busPIRone 2023-0 Yes 10mg Take 1 Univer s 10 mg 6-02 tablet by ity of tablet 16:15: mouth in [place] [address] the Medical morning Branch and 1 tablet in the evening. rivaroxaban 2023-0 Yes 15mg Take 1 Univ ers 15 mg 6-02 tablet by ity of tablet 16:15: mouth in [place] [address] the Medical morning. Branch ASPIRIN 2023-0 Yes 81mg Take 81 mg Univ ers ORAL 6-02 by mouth ity of 16:15: in the [place] [address] morning. Medical tablet Branch busPIRone 2023-0 Yes 10mg Take 1 Univer s 10 mg 6-02 tablet by ity of tablet 16:15: mouth in [place] [address] the Medical morning Branch and 1 tablet in the evening. rivaroxaban 2023-0 Yes 15mg Take 1 Univ ers 15 mg 6-02 tablet by ity of tablet 16:15: mouth in [place] [address] the Medical morning. Branch ASPIRIN 2023-0 Yes 81mg Take 81 mg Univ ers ORAL 6-02 by mouth ity of 16:15: in the [place] [address] morning. Medical tablet Branch busPIRone 2023-0 Yes 10mg Take 1 Univer s 10 mg 6-02 tablet by ity of tablet 16:15: mouth in [place] [address] the Medical morning Branch and 1 tablet in the evening. rivaroxaban 2023-0 Yes 15mg Take 1 Univ ers 15 mg 6-02 tablet by ity of tablet 16:15: mouth in [place] [address] the Medical morning. Branch ASPIRIN 2023-0 Yes 81mg Take 81 mg Univ ers ORAL 6-02 by mouth ity of 16:15: in the [place] [address] morning. Medical tablet Branch busPIRone 2023-0 Yes 10mg Take 1 Univer s 10 mg 6-02 tablet by ity of tablet 16:15: mouth in [place] [address] the Medical morning Branch and 1 tablet in the evening. rivaroxaban 2023-0 Yes 15mg Take 1 Univ ers 15 mg 6-02 tablet by ity of tablet 16:15: mouth in [place] [address] the Medical morning. Branch ASPIRIN 2023-0 Yes 81mg Take 81 mg Univ ers ORAL 6-02 by mouth ity of 16:15: in the [place] [address] morning. Medical tablet Branch busPIRone 2023-0 Yes 10mg Take 1 Univer s 10 mg 6-02 tablet by ity of tablet 16:15: mouth in [place] [address] the Medical morning Branch and 1 tablet in the evening. rivaroxaban 0 Yes 15mg Take 1 Univ ers 15 mg 6-02 tablet by ity of tablet 16:15: mouth in [place] [address] the Medical morning. Branch ASPIRIN 2022-0 Yes 81mg Take 81 mg Univ ers ORAL 6-02 by mouth ity of 16:15: in the [place] [address] morning. Medical tablet Branch predniSONE 2022-0 2022- No [id number] 40mg Take 2 Univers 20 mg 6-02 06-06 tablets by ity of tablet 00:00: 04:59 mouth in [place] 00 :00 the Medical morning Branch for 3 days. predniSONE 2022-0 2022- No [id number] 40mg Take 2 Univers 20 mg 6-02 06-06 tablets by ity of tablet 00:00: 04:59 mouth in [place] 00 :00 the Medical morning Branch for 3 days. predniSONE 2022-0 2022- No [id number] 40mg Take 2 Univers 20 mg 6-02 06-06 tablets by ity of tablet 00:00: 04:59 mouth in [place] 00 :00 the Medical morning Branch for 3 days. midodrine 5 0 Yes [id number] 5mg Take 1 Univers mg tablet 6-01 tablet by ity o f 00:00: mouth [place] 00 every 8 Medical (eight) Branch hours as needed (Hypotensi on SBP <95 or DBP <50). midodrine 5 0 Yes [id number] 5mg Take 1 Univers mg tablet 6-01 tablet by ity o f 00:00: mouth [place] 00 every 8 Medical (eight) Branch hours as needed (Hypotensi on SBP <95 or DBP <50). midodrine 5 0 Yes [id number] 5mg Take 1 Univers mg tablet 6-01 tablet by ity o f 00:00: mouth [place] 00 every 8 Medical (eight) Branch hours as needed (Hypotensi on SBP <95 or DBP <50). midodrine 5 2022-0 Yes [id number] 5mg Take 1 Univers mg tablet 6-01 tablet by ity o f 00:00: mouth [place] 00 every 8 Medical (eight) Branch hours as needed (Hypotensi on SBP <95 or DBP <50). midodrine 5 2022-0 Yes [id number] 5mg Take 1 Univers mg tablet 6-01 tablet by ity o f 00:00: mouth [place] 00 every 8 Medical (eight) Branch hours as needed (Hypotensi on SBP <95 or DBP <50). midodrine 5 2022-0 Yes [id number] 5mg Take 1 Univers mg tablet 6-01 tablet by ity o f 00:00: mouth [place] 00 every 8 Medical (eight) Branch hours as needed (Hypotensi on SBP <95 or DBP <50). midodrine 5 0 Yes [id number] 5mg Take 1 Univers mg tablet 6-01 tablet by ity o f 00:00: mouth [place] 00 every 8 Medical (eight) Branch hours as needed (Hypotensi on SBP <95 or DBP <50). midodrine 5 0 Yes [id number] 5mg Take 1 Univers mg tablet 6-01 tablet by ity o f 00:00: mouth [place] 00 every 8 Medical (eight) Branch hours as needed (Hypotensi on SBP <95 or DBP <50). midodrine 5 0 Yes [id number] 5mg Take 1 Univers mg tablet 6-01 tablet by ity o f 00:00: mouth [place] 00 every 8 Medical (eight) Branch hours as needed (Hypotensi on SBP <95 or DBP <50). midodrine 5 0 Yes [id number] 5mg Take 1 Univers mg tablet 6-01 tablet by ity o f 00:00: mouth [place] 00 every 8 Medical (eight) Branch hours as needed (Hypotensi on SBP <95 or DBP <50). midodrine 0 Yes [id number] 5mg Take 1 Univers mg tablet 6-01 tablet by ity o f 00:00: mouth [place] 00 every 8 Medical (eight) Branch hours as needed (Hypotensi on SBP <95 or DBP <50). midodrine 5 0 Yes [id number] 5mg Take 1 Univers mg tablet 6-01 tablet by ity o f 00:00: mouth [place] 00 every 8 Medical (eight) Branch hours as needed (Hypotensi on SBP <95 or DBP <50). midodrine 0 Yes 5mg 5 mg, Univers (PROAMATINE 5-31 Oral, Q8H, it y of ) tablet 5 19:00: First dose [place] mg 00 on Tue Medical 02/16/23 at Branch 1400, Until Discontinu ed, Routine rivaroxaban 0 Yes [...] 02/16/23 at 0900, Until Discontinu ed, Routine
bridge crew member approving Restricted medication : DEDRICK TOTH [...] 02/16/23 at 0900, Until Discontinu ed docusate 0 Yes 100mg 100 mg, Unive rs (COLACE) [...] dose on Tue02/20/23 at 0900, Routine sulfur 2022-0 202- No [id number] 5mL 5 mL, Unive rs hexafluorid 02-16 Intravenou i ty of e microsphr 14:00: 14:00 s, ONCE, 1 [place] (LUMASON) 00 :00 dose, On Medica l injection Tue Branch mL 02/16/23 at 0900, Routine
bridge crew member approving Restricted medication : STEFFANIE REYES [...] of succ 05:43: 05:51 s, ONCE, 1 [place] (SOLU-MEDRO 00 :00 dose, On Medi lucho [...] Starting Medica l tablet 1 on Tue [place] tablet 02/15/23 at 1951, Until Discontinu ed, Routine, Pain (scale 7-10) traMADoL 0 2022- No 50mg 50 mg, Univer s (ULTRAM) 02-16 06-02 Oral, ity of tablet 50 00:52: 00:51 Q8HPRN, [place] mg 22 :22 Starting Medical on Tue02/15/23 at 1951, Until [place] 02/17/23 at 1950, Routine, Pain (scale 4-6) acetaminoph 0 Yes 650mg 650 mg, Un igor en 02-16 Oral, ity of (TYLENOL) 00:52: Q6HPRN, [place] tablet 650 16 Starting Medic al mg on Branch 02/15/23 at 1952, Until Discontinu ed, Routine, Pain (scale 1-3) NaCl 0.9% 3-0 2023- No 1000mL at [...] Tue02/15/23 at 1630, MICHAEL NaCl 0.9% 3-0 3- No 1000mL at 999 Uni vers (NS) bolus 5-30 05-30 mL/hr, ity of infusion 20:45: 22:43 1,000 mL, [place] as 1,000 mL 00 :00 IV Medical Infusion, Branch ONCE, 1 dose, On Tue02/15/23 at 1545, MICHAEL ipratropium 2022-0 2022- No 3mL 3 mL, Univ ers -albuteroL 02-05-21 Inhalation it y of (DUONEB) 22:15: 10:14 [...] mg 02/04/23 at 1615, MICHAEL albuterol Yes [id number] 2{puff} Inhale 2 Univers 90 5-19 Puffs ity of mcg/actuati 00:00: every 4 [place] as on inhaler 00 (four) Medical hours as Branch needed for Wheezing or Shortness of Breath. albuterol Yes [id number] 2{puff} Inhale 2 Univers 90 5-19 Puffs ity of mcg/actuati 00:00: every 4 [place] as on inhaler 00 (four) Medical hours as Branch needed for Wheezing or Shortness of Breath. albuterol Yes [id number] 2{puff} Inhale 2 Univers 90 5-19 Puffs ity of mcg/actuati 00:00: every 4 [place] as on inhaler 00 (four) Medical hours as Branch needed for Wheezing or Shortness of Breath. albuterol Yes [id number] 2{puff} Inhale 2 Univers 90 5-19 Puffs ity of mcg/actuati 00:00: every 4 [place] as on inhaler 00 (four) Medical hours as Branch needed for Wheezing or Shortness of Breath. albuterol Yes [id number] 2{puff} Inhale 2 Univers 90 5-19 Puffs ity of mcg/actuati 00:00: every 4 [place] as on inhaler 00 (four) Medical hours as Branch needed for Wheezing or Shortness of Breath. albuterol Yes [id number] 2{puff} Inhale 2 Univers 90 5-19 Puffs ity of mcg/actuati 00:00: every 4 [place] as on inhaler 00 (four) Medical hours as Branch needed for Wheezing or Shortness of Breath. albuterol Yes [id number] 2{puff} Inhale 2 [facility] 90 5-19 Puffs ity of mcg/actuati 00:00: every 4 [place] as on inhaler 00 (four) Medical hours as Branch needed for Wheezing or Shortness of Breath. albuterol Yes [id number] 2{puff} Inhale 2 [facility] 90 5-19 Puffs ity of mcg/actuati 00:00: every 4 [place] on inhaler 00 (four) Medical hours as Branch needed for Wheezing or Shortness of Breath. albuterol Yes [id number] 2{puff} Inhale 2 [facility] 90 5-19 Puffs ity of mcg/actuati 00:00: every 4 [place] as on inhaler 00 (four) Medical hours as Branch needed for Wheezing or Shortness of Breath. albuterol Yes [id number] 2{puff} Inhale 2 [facility] 90 5-19 Puffs ity of mcg/actuati 00:00: every 4 [place] as on inhaler 00 (four) Medical hours as Branch needed for Wheezing or Shortness of Breath. albuterol 2022- No [id number] 2{puff} Inhale 2 [facility] 90 5-19 08-01 Puffs ity of mcg/actuati 00:00: 00:00 every 4 [place] on inhaler 00 :00 (four) Medical hours as Branch needed for Wheezing or Shortness of Breath. albuterol 2022- No [id number] 2{puff} Inhale 2 [facility] 90 5-19 08-01 Puffs ity of mcg/actuati 00:00: 00:00 every 4 [place] on inhaler 00 :00 (four) Medical hours as Branch needed for Wheezing or Shortness of Breath. ipratropium Yes 3mL 3 mL, Unive rs -albuteroL 5-18 Inhalation ity of (DUONEB) 21:00: , QID, [place] 0.5 mg-3 00 First dose Medic al mg(2.5 mg on [place] Branch base)/3 mL 02/03/23 at nebulizer 1600, solution 3 Until mL Discontinu ed, Routine methylpredn 2022- No 125mg 125 mg, U nivers isolone sod 02-03-18 Intravenou i ty of succ 18:45: 18:16 s, ONCE, 1 [place] (SOLU-MEDRO 00 :00 dose, On Medi lucho L) [place] [facility] injection 02/03/23 at 125 mg 1345, 2 mL ipratropium 2022- No 3mL 3 mL, Univ ers -albuteroL 02-02-17 Inhalation it y of (DUONEB) 23:15: 22:13 , ONCE, 1 [place] 0.5 mg-3 00 :00 dose, On Medical mg(2.5 mg Wed Branch base)/3 mL 02/02/23 at nebulizer 1815, solution 3 Routine mL albuterol 0 Yes [id number] 2{puff} Inhale 2 [facility] 90 5-15 Puffs ity of mcg/actuati 00:00: every 4 [place] on inhaler 00 (four) Medical hours as Branch needed for Wheezing, Shortness of Breath or Bronchospa sm. fluticasone 0 Yes [id number] 1{puff} Inhale 1 [facility] propion-bella 5-15 Puff in ity o f meteroL 00:00: the [place] (ADVAIR 00 morning Medical DISKUS) and 1 Puff Branch 250-50 in the mcg/dose evening. inhalation disk montelukast 0 Yes [id number] 10mg Take 1 [facility] 10 mg 5-15 tablet by ity of tablet 00:00: mouth in [place] 00 the Medical morning. Branch tiotropium 0 Yes [id number] 18ug Inhale 1 [facility] 18 mcg 5-15 capsule in ity of inhalation 00:00: the [place] 00 morning. Medical Branch albuterol 0 Yes [id number] 2{puff} Inhale 2 [facility] 90 5-15 Puffs ity of mcg/actuati 00:00: every 4 [place] on inhaler 00 (four) Medical hours as Branch needed for Wheezing, Shortness of Breath or Bronchospa sm. fluticasone 2022-0 Yes [id number] 1{puff} Inhale 1 [facility] propion-bella 5-15 Puff in ity o f meteroL 00:00: the [place] (ADVAIR 00 morning Medical DISKUS) and 1 Puff Branch 250-50 in the mcg/dose evening. inhalation disk montelukast 2022-0 Yes [id number] 10mg Take 1 [facility] 10 mg 5-15 tablet by ity of tablet 00:00: mouth in [place] 00 the Medical morning. Branch tiotropium 2022-0 Yes [id number] 18ug Inhale 1 [facility] 18 mcg 5-15 capsule in ity of inhalation 00:00: the [place] 00 morning. Medical Branch albuterol 2022-0 Yes [id number] 2{puff} Inhale 2 [facility] 90 5-15 Puffs ity of mcg/actuati 00:00: every 4 [place] on inhaler 00 (four) Medical hours as Branch needed for Wheezing, Shortness of Breath or Bronchospa sm. fluticasone 2022-0 Yes [id number] 1{puff} Inhale 1 [facility] propion-bella 5-15 Puff in ity o f meteroL 00:00: the [place] (ADVAIR morning Medical DISKUS) and 1 Puff Branch 250-50 in the mcg/dose evening. inhalation disk montelukast 2022-0 Yes [id number] 10mg Take 1 [facility] 10 mg 5-15 tablet by ity of tablet 00:00: mouth in [place] 00 the Medical morning. Branch tiotropium 2022-0 Yes [id number] 18ug Inhale 1 [facility] 18 mcg 5-15 capsule in ity of inhalation 00:00: the [place] 00 morning. Medical Branch albuterol 2022-0 Yes [id number] 2{puff} Inhale 2 [facility] 90 5-15 Puffs ity of mcg/actuati 00:00: every 4 [place] on inhaler 00 (four) Medical hours as Branch needed for Wheezing, Shortness of Breath or Bronchospa sm. fluticasone 2022-0 Yes [id number] 1{puff} Inhale 1 [facility] propion-bella 5-15 Puff in ity o f meteroL 00:00: the [place] (ADVAIR 00 morning Medical DISKUS) and 1 Puff Branch 250-50 in the mcg/dose evening. inhalation disk montelukast 2023-0 Yes [id number] 10mg Take 1 [facility] 10 mg 5-15 tablet by ity of tablet 00:00: mouth in [place] 00 the Medical morning. Branch tiotropium 3-0 Yes [id number] 18ug Inhale 1 [facility] 18 mcg 5-15 capsule in ity of inhalation 00:00: the [place] 00 morning. Medical Branch fluticasone 2023-0 Yes [id number] 1{puff} Inhale 1 [facility] propion-bella 5-15 Puff in ity o f meteroL 00:00: the [place] (ADVAIR 00 morning Medical DISKUS) and 1 Puff Branch 250-50 in the mcg/dose evening. inhalation disk montelukast 3-0 Yes [id number] 10mg Take 1 [facility] 10 mg 5-15 tablet by ity of tablet 00:00: mouth in [place] 00 the Medical morning. Branch tiotropium 3-0 Yes [id number] 18ug Inhale 1 [facility] 18 mcg 5-15 capsule in ity of inhalation 00:00: the [place] 00 morning. Medical Branch fluticasone 3-0 Yes [id number] 1{puff} Inhale 1 [facility] propion-bella 5-15 Puff in ity o f meteroL 00:00: the [place] (ADVAIR 00 morning Medical DISKUS) and 1 Puff Branch 250-50 in the mcg/dose evening. inhalation disk montelukast 3-0 Yes [id number] 10mg Take 1 [facility] 10 mg 5-15 tablet by ity of tablet 00:00: mouth in [place] 00 the Medical morning. Branch tiotropium 3-0 Yes [id number] 18ug Inhale 1 [facility] 18 mcg 5-15 capsule in ity of inhalation 00:00: the [place] 00 morning. Medical Branch fluticasone 3-0 Yes [id number] 1{puff} Inhale 1 [facility] propion-bella 5-15 Puff in ity o f meteroL 00:00: the [place] (ADVAIR 00 morning Medical DISKUS) and 1 Puff Branch 250-50 in the mcg/dose evening. inhalation disk montelukast 2023-0 Yes [id number] 10mg Take 1 [facility] 10 mg 5-15 tablet by ity of tablet 00:00: mouth in [place] 00 the Medical morning. Branch tiotropium 2022-0 Yes [id number] 18ug Inhale 1 [facility] 18 mcg 5-15 capsule in ity of inhalation 00:00: the [place] 00 morning. Medical Branch fluticasone 2022-0 Yes [id number] 1{puff} Inhale 1 [facility] propion-bella 5-15 Puff in ity o f meteroL 00:00: the [place] (ADVAIR 00 morning Medical DISKUS) and 1 Puff Branch 250-50 in the mcg/dose evening. inhalation disk montelukast 2022-0 Yes [id number] 10mg Take 1 [facility] 10 mg 5-15 tablet by ity of tablet 00:00: mouth in [place] 00 the Medical morning. Branch tiotropium 2022-0 Yes [id number] 18ug Inhale 1 [facility] 18 mcg 5-15 capsule in ity of inhalation 00:00: the [place] 00 morning. Medical Branch fluticasone 2022-0 Yes [id number] 1{puff} Inhale 1 [facility] propion-bella 5-15 Puff in ity o f meteroL 00:00: the [place] (ADVAIR 00 morning Medical DISKUS) and 1 Puff Branch 250-50 in the mcg/dose evening. inhalation disk montelukast 3-0 Yes [id number] 10mg Take 1 [facility] 10 mg 5-15 tablet by ity of tablet 00:00: mouth in [place] 00 the Medical morning. Branch tiotropium 2022-0 Yes [id number] 18ug Inhale 1 [facility] 18 mcg 5-15 capsule in ity of inhalation 00:00: the [place] 00 morning. Medical Branch fluticasone 2022-0 Yes [id number] 1{puff} Inhale 1 [facility] propion-bella 5-15 Puff in ity o f meteroL 00:00: the [place] (ADVAIR 00 morning Medical DISKUS) and 1 Puff Branch 250-50 in the mcg/dose evening. inhalation disk montelukast 3-0 Yes [id number] 10mg Take 1 [facility] 10 mg 5-15 tablet by ity of tablet 00:00: mouth in [place] 00 the Medical morning. Branch tiotropium 2022-0 Yes [id number] 18ug Inhale 1 [facility] 18 mcg 5-15 capsule in ity of inhalation 00:00: the [place] 00 morning. Medical Branch fluticasone 3-0 Yes [id number] 1{puff} Inhale 1 [facility] propion-bella 5-15 Puff in ity o f meteroL 00:00: the [place] (ADVAIR 00 morning Medical DISKUS) and 1 Puff Branch 250-50 in the mcg/dose evening. inhalation disk montelukast 3-0 Yes [id number] 10mg Take 1 [facility] 10 mg 5-15 tablet by ity of tablet 00:00: mouth in [place] 00 the Medical morning. Branch tiotropium 2022-0 Yes [id number] 18ug Inhale 1 [facility] 18 mcg 5-15 capsule in ity of inhalation 00:00: the [place] 00 morning. Medical Branch fluticasone 2022-0 Yes [id number] 1{puff} Inhale 1 [facility] propion-bella 5-15 Puff in ity o f meteroL 00:00: the [place] (ADVAIR 00 morning Medical DISKUS) and 1 Puff Branch 250-50 in the mcg/dose evening. inhalation disk montelukast 2022-0 Yes [id number] 10mg Take 1 [facility] 10 mg 5-15 tablet by ity of tablet 00:00: mouth in [place] the morning. Branch tiotropium 2022-0 Yes [id number] 18ug Inhale 1 [facility] 18 mcg 5-15 capsule in ity of inhalation 00:00: the [place] 00 morning. Medical Branch fluticasone 2022-0 Yes [id number] 1{puff} Inhale 1 [facility] propion-bella 5-15 Puff in ity o f meteroL 00:00: the [place] (ADVAIR 00 morning Medical DISKUS) and 1 Puff Branch 250-50 in the mcg/dose evening. inhalation disk montelukast 3-0 Yes [id number] 10mg Take 1 [facility] 10 mg 5-15 tablet by ity of tablet 00:00: mouth in [place] 00 the morning. Branch tiotropium 2022-0 Yes [id number] 18ug Inhale 1 [facility] 18 mcg 5-15 capsule in ity of inhalation 00:00: the [place] 00 morning. Medical Branch fluticasone 3-0 Yes [id number] 1{puff} Inhale 1 [facility] propion-bella 5-15 Puff in ity o f meteroL 00:00: the [place] (ADVAIR 00 morning Medical DISKUS) and 1 Puff Branch 250-50 in the mcg/dose evening. inhalation disk montelukast 2022-0 Yes [id number] 10mg Take 1 [facility] 10 mg 5-15 tablet by ity of tablet 00:00: mouth in [place] 00 the Medical morning. Branch tiotropium 2022-0 Yes [id number] 18ug Inhale 1 [facility] 18 mcg 5-15 capsule in ity of inhalation 00:00: the [place] 00 morning. Medical Branch montelukast 2022-0 Yes [id number] 10mg Take 1 [facility] 10 mg 5-15 tablet by ity of tablet 00:00: mouth in [place] 00 the Medical morning. Branch montelukast 2022-0 Yes [id number] 10mg Take 1 [facility] 10 mg 5-15 tablet by ity of tablet 00:00: mouth in [place] 00 the Medical morning. Branch montelukast 2022-0 Yes [id number] 10mg Take 1 [facility] 10 mg 5-15 tablet by ity of tablet 00:00: mouth in [place] 00 the Medical morning. Branch montelukast 2022-0 Yes [id number] 10mg Take 1 [facility] 10 mg 5-15 tablet by ity of tablet 00:00: mouth in [place] 00 the Medical morning. Branch montelukast 2022-0 Yes [id number] 10mg Take 1 [facility] 10 mg 5-15 tablet by ity of tablet 00:00: mouth in [place] 00 the Medical morning. Branch fluticasone 2022-0 2022- No [id number] 1{puff} Inhale 1 [facility] propion-bella 5-15 08-01 Puff in ity of meteroL 00:00: 00:00 [facility] (ADVAIR 00 :00 morning Medical DISKUS) and 1 Puff Branch 250-50 in the mcg/dose evening. inhalation disk tiotropium 2022-0 2022- No [id number] 18ug Inhale 1 [facility] 18 mcg 5-15 08-01 capsule in ity of inhalation 00:00: 00:00 the [place] 00 :00 morning. Medical Branch fluticasone 2022-0 2022- No [id number] 1{puff} Inhale 1 [facility] propion-bella 5-15 08-01 Puff in ity of meteroL 00:00: 00:00 [facility] (ADVAIR 00 :00 morning Medical DISKUS) and 1 Puff Branch 250-50 in the mcg/dose evening. inhalation disk tiotropium 2022- No [id number] 18ug Inhale 1 [facility] 18 mcg -15 - capsule in ity of inhalation 00:00: 00:00 [facility] 00 :00 morning. Medical Branch albuterol 2022-0 2022- No [id number] 2{puff} Inhale 2 [facility] 90 5-15 05-19 [...] Inhalation ity of (DUONEB) 13:00: , QID, [place] 0.5 mg-3 00 First dose Medic al mg(2.5 mg on [place] Branch base)/3 mL 01/27/23 at nebulizer 0800, solution 3 Until mL Discontinu ed, Routine ipratropium 2022-2022- No 3mL 3 mL, Univ ers -albuteroL 01-24- Inhalation it y of (DUONEB) 18:00: 18:15 , ONCE, 1 [place] as 0.5 mg-3 00 :00 dose, On Medical mg(2.5 mg 01/24/23 Bran ch base)/3 mL at 1300, nebulizer MICHAEL solution 3 mL furosemide 2022-0 2023- No 40mg 40 mg, IV U nivers (LASIX) 5- 05-08 Push, ity of injection 18:00: 18:42 ONCE, 1 [place] 40 mg 00 :00 dose, On Medical Tue01/24/23 Branch at 1300, MICHAEL aspirin 3-0 2023- No 325mg 325 mg, Unive rs tablet 325 01-24 05-08 Oral, ity of mg 18:00: 18:44 ONCE, 1 [place] 00 :00 dose, On Medical Tue01/24/23 Branch at 1300, STAT busPIRone 3-0 Yes 10mg Take 1 Univer s 10 mg 5-08 tablet by ity of tablet 15:48: mouth in [place] [address] the Medical morning Branch and 1 tablet in the evening. rivaroxaban 3-0 Yes 15mg Take 1 Univ ers 15 mg 5-08 tablet by ity of tablet 15:48: mouth in [place] [address] the Medical morning. Branch ASPIRIN 3-0 Yes 81mg Take 81 mg Univ ers ORAL 5-08 by mouth ity of 15:48: in the [place] [address] morning. Medical tablet Branch busPIRone 3-0 Yes 10mg Take 1 Univer s 10 mg 5-08 tablet by ity of tablet 15:48: mouth in [place] [address] the Medical morning Branch and 1 tablet in the evening. rivaroxaban 3-0 Yes 15mg Take 1 Univ ers 15 mg 5-08 tablet by ity of tablet 15:48: mouth in [place] [address] the Medical morning. Branch ASPIRIN 2023-0 Yes 81mg Take 81 mg Univ ers ORAL 5-08 by mouth ity of 15:48: in the [place] [address] morning. Medical tablet Branch busPIRone 3-0 Yes 10mg Take 1 Univer s 10 mg 5-08 tablet by ity of tablet 15:48: mouth in [place] [address] the Medical morning Branch and 1 tablet in the evening. rivaroxaban 2023-0 Yes 15mg Take 1 Univ ers 15 mg 5-08 tablet by ity of tablet 15:48: mouth in [place] [address] the Medical morning. Branch ASPIRIN 2023-0 Yes 81mg Take 81 mg Univ ers ORAL 5-08 by mouth ity of 15:48: in the [place] [address] morning. Medical tablet Branch busPIRone 2023-0 Yes 10mg Take 1 Univer s 10 mg 5-08 tablet by ity of tablet 15:48: mouth in [place] [address] the Medical morning Branch and 1 tablet in the evening. rivaroxaban 2023-0 Yes 15mg Take 1 Univ ers 15 mg 5-08 tablet by ity of tablet 15:48: mouth in [place] [address] the Medical morning. Branch ASPIRIN 2023-0 Yes 81mg Take 81 mg Univ ers ORAL 5-08 by mouth ity of 15:48: in the [place] [address] morning. Medical tablet Branch busPIRone 2023-0 Yes 10mg Take 1 Univer s 10 mg 5-08 tablet by ity of tablet 15:48: mouth in [place] [address] the Medical morning Branch and 1 tablet in the evening. rivaroxaban 2023-0 Yes 15mg Take 1 Univ ers 15 mg 5-08 tablet by ity of tablet 15:48: mouth in [place] [address] the Medical morning. Branch ASPIRIN 2023-0 Yes 81mg Take 81 mg Univ ers ORAL 5-08 by mouth ity of 15:48: in the [place] [address] morning. Medical tablet Branch busPIRone 2023-0 Yes 10mg Take 1 Univer s 10 mg 5-08 tablet by ity of tablet 15:48: mouth in [place] [address] the Medical morning Branch and 1 tablet in the evening. rivaroxaban 2023-0 Yes 15mg Take 1 Univ ers 15 mg 5-08 tablet by ity of tablet 15:48: mouth in [place] [address] the Medical morning. Branch ASPIRIN 2023-0 Yes 81mg Take 81 mg Univ ers ORAL 5-08 by mouth ity of 15:48: in the [place] [address] morning. Medical tablet Branch busPIRone 2023-0 Yes 10mg Take 1 Univer s 10 mg 5-08 tablet by ity of tablet 15:48: mouth in [place] [address] the Medical morning Branch and 1 tablet in the evening. rivaroxaban 2023-0 Yes 15mg Take 1 Univ ers 15 mg 5-08 tablet by ity of tablet 15:48: mouth in [place] [address] the Medical morning. Branch ASPIRIN 2023-0 Yes 81mg Take 81 mg Univ ers ORAL 5-08 by mouth ity of 15:48: in the [place] [address] morning. Medical tablet Branch busPIRone 2023-0 Yes 10mg Take 1 Univer s 10 mg 5-08 tablet by ity of tablet 15:48: mouth in [place] [address] the Medical morning Branch and 1 tablet in the evening. rivaroxaban 2023-0 Yes 15mg Take 1 Univ ers 15 mg 5-08 tablet by ity of tablet 15:48: mouth in [place] [address] the Medical morning. Branch ASPIRIN 2023-0 Yes 81mg Take 81 mg Univ ers ORAL 5-08 by mouth ity of 15:48: in the [place] [address] morning. Medical tablet Branch busPIRone 2023-0 Yes 10mg Take 1 Univer s 10 mg 5-08 tablet by ity of tablet 15:48: mouth in [place] [address] the Medical morning Branch and 1 tablet in the evening. rivaroxaban 2023-0 Yes 15mg Take 1 Univ ers 15 mg 5-08 tablet by ity of tablet 15:48: mouth in [place] [address] the [facility] morning. Branch ASPIRIN 2023-0 Yes 81mg Take 81 mg Univ ers ORAL 5-08 by mouth ity of 15:48: in the [place] [address] morning. Medical tablet Branch busPIRone 2023-0 Yes 10mg Take 1 Univer s 10 mg 5-08 tablet by ity of tablet 15:48: mouth in [place] [address] the Medical morning Branch and 1 tablet in the evening. rivaroxaban 2023-0 Yes 15mg Take 1 Univ ers 15 mg 5-08 tablet by ity of tablet 15:48: mouth in [place] [address] the [facility] morning. Branch ASPIRIN 2023-0 Yes 81mg Take 81 mg Univ ers ORAL 5-08 by mouth ity of 15:48: in the [place] [address] morning. Medical tablet Branch busPIRone 2023-0 Yes 10mg Take 1 Univer s 10 mg 5-08 tablet by ity of tablet 15:48: mouth in [place] [address] the Medical morning Branch and 1 tablet in the evening. rivaroxaban 2023-0 Yes 15mg Take 1 Univ ers 15 mg 5-08 tablet by ity of tablet 15:48: mouth in [place] [address] the [facility] morning. Branch ASPIRIN 2023-0 Yes 81mg Take 81 mg Univ ers ORAL 5-08 by mouth ity of 15:48: in the [place] [address] morning. Medical tablet Branch busPIRone 2023-0 Yes 10mg Take 1 Univer s 10 mg 5-08 tablet by ity of tablet 15:48: mouth in [place] [address] the Medical morning Branch and 1 tablet in the evening. rivaroxaban 2023-0 Yes 15mg Take 1 Univ ers 15 mg 5-08 tablet by ity of tablet 15:48: mouth in [place] [address] the Medical morning. Branch ASPIRIN 3-0 Yes 81mg Take 81 mg Univ ers ORAL 5-08 by mouth ity of 15:48: in the [place] [address] morning. Medical tablet Branch busPIRone 3-0 Yes 10mg Take 1 Univer s 10 mg 5-08 tablet by ity of tablet 15:48: mouth in [place] [address] the Medical morning Branch and 1 tablet in the evening. rivaroxaban 2023-0 Yes 15mg Take 1 Univ ers 15 mg 5-08 tablet by ity of tablet 15:48: mouth in [place] [address] the Medical morning. Branch ASPIRIN 3-0 Yes 81mg Take 81 mg Univ ers ORAL 5-08 by mouth ity of 15:48: in the [place] [address] morning. Medical tablet Branch levalbutero 2022-0 2022- No 1.25mg 1.25 mg, Univers l (XOPENEX) 01-23-06 Inhalation i ty of nebulizer 00:15: 23:35 , ONCE, 1 [place] solution 00 :00 dose, On Medical 1.25 mg 01/22/23 [place] at 1915, Routine ipratropium 2022-0 2022- No .5mg 0.5 mg, Un ig[facility] (ATROVENT) 01-22 05-06 Inhalation it y of 0.02 % 23:30: 23:36 , ONCE, 1 [place] nebulizer 00 :00 dose, On Medica l solution 01/22/23 Branc h 0.5 mg at 1830, MICHAEL diltiazem 2022-0 Yes 30mg 30 mg, Univer s (CARDIZEM) 5-05 Oral, Q6H, ity of tablet 30 23:00: First dose [place] mg 00 on Tue Medical 01/21/23 at Branch 1800, Until Discontinu ed, Routine methylpredn 2023-0 Yes 125mg 125 mg, Un [facility] isolone sod 5-05 Intravenou it y of succ 23:00: s, Q6H, [place] (SOLU-MEDRO 00 First dose Me dical L) on Tue Branch injection 01/21/23 at 125 mg 1800, Until Discontinu ed, Routine ipratropium 2022-0 2022- No 3mL 3 mL, Univ ers -albuteroL 5-05 05-05 Inhalation it y of (DUONEB) 20:45: 19:54 , ONCE, 1 [place] as 0.5 mg-3 00 :00 dose, On Medical mg(2.5 mg Tue01/21/23 Bran ch base)/3 mL at 1545, nebulizer Routine solution 3 mL diltiazem 2022- No 15mg 15 mg, IV [facility] (CARDIZEM 5-05 05-05 Push, ity of IV) 19:45: 20:06 [...] at 1445, STAT predniSONE 2022-0 2022- No [id number] 40mg Take 2 [facility] 20 mg 5-04 05-09 tablets by ity of tablet 00:00: 04:59 mouth in [place] 00 :00 [facility] for 4 days. predniSONE 2022-0 2022- No [id number] 40mg Take 2 [facility] 20 mg 5-04 05-09 tablets by ity of tablet 00:00: 04:59 mouth in [place] 00 :00 [facility] for 4 days. predniSONE 2022-0 2022- No [id number] 40mg Take 2 [facility] 20 mg 5-04 05-09 tablets by ity of tablet 00:00: 04:59 mouth in [place] 00 :00 [facility] for 4 days. predniSONE 2022-0 2022- No [id number] 40mg Take 2 [facility] 20 mg 5-04 05-09 tablets by ity of tablet 00:00: 04:59 mouth in [place] 00 :00 [facility] for 4 days. predniSONE 2022-0 2022- No [id number] 40mg Take 2 [facility] 20 mg 5-04 05-09 tablets by ity of tablet 00:00: 04:59 mouth in [place] 00 :00 the Medical morning Branch for 4 days. predniSONE 2022-0 2022- No [id number] 40mg Take 2 [facility] 20 mg 5-04 05-09 tablets by ity of tablet 00:00: 04:59 mouth in [place] 00 :00 the Medical morning Branch for 4 days. predniSONE 2023-0 3- No [id number] 40mg Take 2 [facility] 20 mg 5-04 05-09 tablets by ity of tablet 00:00: 04:59 mouth in [place] 00 :00 the [facility] morning Branch for 4 days. enoxaparin 2022-0 Yes 40mg 40 mg, Unive rs (LOVENOX) 5-03 Subcutaneo ity of injection 22:00: [place], DAILY, [place] 40 mg 00 First dose Medical on Tue01/19/23 at 1700, Until Discontinu ed, Routine levalbutero 2022-0 Yes 1.25mg 1.25 mg, Univers l (XOPENEX) 5-03 Inhalation it y of nebulizer 21:00: , QID, [place] solution 00 First dose Medic al 1.25 mg (after Branch last modificati on) on Tue01/19/23 at 1600, Until Discontinu ed, Routine ipratropium 2022-0 Yes .5mg 0.5 mg, Uni vers (ATROVENT) 5-03 Inhalation ity of 0.02 % 21:00: , QID, [place] nebulizer 00 First dose Medi lucho solution (after Branch 0.5 mg last modificati on) on Tue01/19/23 at 1600, Until Discontinu ed, Routine busPIRone 3-0 Yes 10mg Take 1 Univer s 10 mg 5-03 tablet by ity of tablet 19:49: mouth in [place] [address] the [facility] morning Branch and 1 tablet in the evening. rivaroxaban 2022-0 Yes 15mg Take 1 Univ ers 15 mg 5-03 tablet by ity of tablet 19:49: mouth in [place] [address] the morning. Branch ASPIRIN 3-0 Yes 81mg Take 81 mg Univ ers ORAL 5-03 by mouth ity of 19:49: in the [place] [address] morning. Medical tablet Branch busPIRone 3-0 Yes 10mg Take 1 Univer s 10 mg 5-03 tablet by ity of tablet 19:49: mouth in [place] [address] the Medical morning Branch and 1 tablet in the evening. rivaroxaban 2023-0 Yes 15mg Take 1 Univ ers 15 mg 5-03 tablet by ity of tablet 19:49: mouth in [place] [address] the Medical morning. Branch ASPIRIN 2023-0 Yes 81mg Take 81 mg Univ ers ORAL 5-03 by mouth ity of 19:49: in the [place] [address] morning. Medical tablet Branch busPIRone 2023-0 Yes 10mg Take 1 Univer s 10 mg 5-03 tablet by ity of tablet 19:49: mouth in [place] [address] the Medical morning Branch and 1 tablet in the evening. rivaroxaban 2023-0 Yes 15mg Take 1 Univ ers 15 mg 5-03 tablet by ity of tablet 19:49: mouth in [place] [address] the Medical morning. Branch ASPIRIN 2023-0 Yes 81mg Take 81 mg Univ ers ORAL 5-03 by mouth ity of 19:49: in the [place] [address] morning. Medical tablet Branch busPIRone 2023-0 Yes 10mg Take 1 Univer s 10 mg 5-03 tablet by ity of tablet 19:49: mouth in [place] [address] the Medical morning Branch and 1 tablet in the evening. rivaroxaban 2023-0 Yes 15mg Take 1 Univ ers 15 mg 5-03 tablet by ity of tablet 19:49: mouth in [place] [address] the Medical morning. Branch ASPIRIN 2023-0 Yes 81mg Take 81 mg Univ ers ORAL 5-03 by mouth ity of 19:49: in the [place] [address] morning. Medical tablet Branch busPIRone 2023-0 Yes 10mg Take 1 Univer s 10 mg 5-03 tablet by ity of tablet 19:49: mouth in [place] [address] the Medical morning Branch and 1 tablet in the evening. rivaroxaban 2023-0 Yes 15mg Take 1 Univ ers 15 mg 5-03 tablet by ity of tablet 19:49: mouth in [place] [address] the Medical morning. Branch ASPIRIN 2023-0 Yes 81mg Take 81 mg Univ ers ORAL 5-03 by mouth ity of 19:49: in the [place] [address] morning. Medical tablet Branch busPIRone 2023-0 Yes 10mg Take 1 Univer s 10 mg 5-03 tablet by ity of tablet 19:49: mouth in [place] [address] the Medical morning Branch and 1 tablet in the evening. rivaroxaban 2023-0 Yes 15mg Take 1 Univ ers 15 mg -03 tablet by ity of tablet 19:49: mouth in [place] 16 the Medical morning. Branch ASPIRIN 0 Yes 81mg Take 81 mg Univ ers ORAL -03 by mouth ity of 19:49: in the [place] 16 morning. Medical tablet Branch benazepriL 2022- No 10mg Take 1 Univ ers 10 mg 01-19- tablet by ity of tablet 17:28: 00:00 mouth in [place] 05 :00 the Medical morning. Branch potassium 2022- No 1{tbl} Take 1 Uni vers chloride 01-19- tablet by ity o f (KCL-20 17:28: 00:00 mouth in [place] ORAL) 05 :00 the Medical morning Branch and 1 tablet in the evening. aspirin Yes 81mg 81 mg, Univers chewable 01-19 Oral, ity of tablet 81 14:00: DAILY, [place] mg 00 First dose Medical on Tue [place] 01/19/23 at 0900, Until Discontinu ed predniSONE No 40mg 40 mg, Univ ers (DELTASONE) 01-19 Oral, ity of tablet 40 14:00: 13:59 DAILY, 5 [place] as mg 00 :00 doses, Medical First dose Branch on Tue01/19/23 at 0900, Last dose on 01/23/23 at 0900, Routine busPIRone Yes 10mg 10 mg, Univer s (BUSPAR) 01-19 Oral, BID, ity o f tablet 10 13:00: First dose [place] mg 00 on Tue [facility] 01/19/23 at Branch 0800, Until Discontinu ed, Routine ipratropium 2022- No .5mg 0.5 mg, Un igor (ATROVENT) 01-19 Inhalation it y of 0.02 % 13:00: 19:13 , TID, [place] nebulizer 00 :37 First dose Medi lucho solution (after Branch 0.5 mg last modificati on) on Tue01/19/23 at 0800, Until Discontinu ed, Routine levalbutero 2022- No 1.25mg 1.25 mg, Univers l (XOPENEX) 5-03 05-03 Inhalation i ty of nebulizer 13:00: 19:13 , TID, [place] solution 00 :37 First dose Medic al 1.25 mg on Tue Branch 01/19/23 at 0800, Until Discontinu ed, Routine sodium 2022- No 15g 15 g, Univers polystyrene 01-1903 Oral, ity of sulfonate 13:00: 13:22 ONCE, 1 [place] (KAYEXALATE 00 :00 dose, On Medi lucho ) 15 Tue01/19/23 Branch gram/60 mL at 0800, suspension Routine 15 g ipratropium 2022- No .5mg 0.5 mg, Un [facility] (ATROVENT) 01-19 Inhalation it y of 0.02 % 09:00: 12:09 , Q4H, [place] nebulizer 00 :19 First dose Medi lucho solution on Tue Branch 0.5 mg 01/19/23 at 0400, Until Discontinu ed, Routine levoFLOXaci No 500mg 500 mg, U nivers n 01-1908 Oral, Q24H ity of (LEVAQUIN) 08:15: 08:14 [...] 01-19 Oral, ity of solution 08:04: Q6HPRN, [place] 200 mg 52 Starting Medical on Tue Branch 01/19/23 at 0304, Until Discontinu ed, Routine, Cough ondansetron Yes 4mg 4 mg, Slow Univers (ZOFRAN 01-19 IV Push, ity of (PF)) 08:03: Q6HPRN, [place] injection 4 53 Starting Medi lucho mg on Tue Branch 01/19/23 at 0303, Until Discontinu ed, Routine, Nausea and Vomiting (N/V) morpHINE (2 2022- No 2mg 2 mg, Slow Univers mg/mL) 01-19 IV Push, ity of injection 2 08:03: 08:02 Q4HPRN, [place] mg 43 :43 Starting Medical on Tue Branch 01/19/23 at 0303, Until [place] 01/20/23 at 030, Routine, Pain (scale 7-10) HYDROcodone 2022-2022- No 1{tbl} 1 tablet, Univers -acetaminop 01-19 Oral, ity of hen (NORCO 08:03: 08:02 Q6HPRN, [place] as 5) 5-325 mg 39 :39 Starting Medi lucho tablet 1 on Tue Branch tablet 01/19/23 at 0303, Until Tue01/21/23 at 030, Routine, Pain (scale 4-6) acetaminoph Yes 650mg [...] ity of PF 06:58: 07:06 ONCE, 1 [place] injection 00 :00 dose, On Medica l 10 mg Tue01/19/23 Branch at 0200, 1 mL ipratropium 2022- No .5mg 0.5 mg, Un ig[facility] (ATROVENT) 01-19 Inhalation it y of 0.02 % 06:45: 07:09 , ONCE, 1 [place] nebulizer 00 :00 dose, On Medica l solution Tue01/19/23 Branc h 0.5 mg at 0145, MICHAEL ipratropium Yes [id number] .5mg Inhale 2.5 Univers 0.02 % 5-03 mL every 6 ity of nebulizer 00:00: (six) [place] solution 00 hours as Medical needed for Branch Wheezing, Shortness of Breath, Bronchospa sm or Chest tightness. guaiFENesin 2023-0 Yes [id number] 200mg Take 10 mL Univers 100 mg/5 mL 5-03 by mouth ity of solution 00:00: every 6 [place] 00 (six) Medical hours as Branch needed for Cough. ipratropium 2023-0 Yes [id number] .5mg Inhale 2.5 Univers 0.02 % 5-03 mL every 6 ity of nebulizer 00:00: (six) [place] solution 00 hours as Medical needed for Branch Wheezing, Shortness of Breath, Bronchospa sm or Chest tightness. guaiFENesin 2023-0 Yes [id number] 200mg Take 10 mL Univers 100 mg/5 mL 5-03 by mouth ity of solution 00:00: every 6 [place] 00 (six) Medical hours as Branch needed for Cough. ipratropium 2023-0 Yes [id number] .5mg Inhale 2.5 Univers 0.02 % 5-03 mL every 6 ity of nebulizer 00:00: (six) [place] solution 00 hours as Medical needed for Branch Wheezing, Shortness of Breath, Bronchospa sm or Chest tightness. guaiFENesin 2023-0 Yes [id number] 200mg Take 10 mL Univers 100 mg/5 mL 5-03 by mouth ity of solution 00:00: every 6 [place] 00 (six) Medical hours as Branch needed for Cough. ipratropium 2023-0 Yes [id number] .5mg Inhale 2.5 Univers 0.02 % 5-03 mL every 6 ity of nebulizer 00:00: (six) [place] solution 00 hours as Medical needed for Branch Wheezing, Shortness of Breath, Bronchospa sm or Chest tightness. guaiFENesin 2023-0 Yes [id number] 200mg Take 10 mL Univers 100 mg/5 mL 5-03 by mouth ity of solution 00:00: every 6 [place] 00 (six) Medical hours as Branch needed for Cough. ipratropium 2023-0 Yes [id number] .5mg Inhale 2.5 Univers 0.02 % 5-03 mL every 6 ity of nebulizer 00:00: (six) [place] solution 00 hours as Medical needed for Branch Wheezing, Shortness of Breath, Bronchospa sm or Chest tightness. guaiFENesin 2023-0 Yes [id number] 200mg Take 10 mL Univers 100 mg/5 mL 5-03 by mouth ity of solution 00:00: every 6 [place] 00 (six) Medical hours as Branch needed for Cough. ipratropium 2023-0 Yes [id number] .5mg Inhale 2.5 Univers 0.02 % 5-03 mL every 6 ity of nebulizer 00:00: (six) [place] solution 00 hours as Medical needed for Branch Wheezing, Shortness of Breath, Bronchospa sm or Chest tightness. guaiFENesin 2023-0 Yes [id number] 200mg Take 10 mL Univers 100 mg/5 mL 5-03 by mouth ity of solution 00:00: every 6 [place] 00 (six) Medical hours as Branch needed for Cough. ipratropium 2023-0 Yes [id number] .5mg Inhale 2.5 Univers 0.02 % 5-03 mL every 6 ity of nebulizer 00:00: (six) [place] solution 00 hours as Medical needed for Branch Wheezing, Shortness of Breath, Bronchospa sm or Chest tightness. guaiFENesin 2023-0 Yes [id number] 200mg Take 10 mL Univers 100 mg/5 mL 5-03 by mouth ity of solution 00:00: every 6 [place] 00 (six) Medical hours as Branch needed for Cough. ipratropium 2023-0 Yes [id number] .5mg Inhale 2.5 Univers 0.02 % 5-03 mL every 6 ity of nebulizer 00:00: (six) [place] solution 00 hours as Medical needed for Branch Wheezing, Shortness of Breath, Bronchospa sm or Chest tightness. guaiFENesin 2023-0 Yes [id number] 200mg Take 10 mL Univers 100 mg/5 mL 5-03 by mouth ity of solution 00:00: every 6 [place] 00 (six) Medical hours as Branch needed for Cough. ipratropium 2023-0 Yes [id number] .5mg Inhale 2.5 Univers 0.02 % 5-03 mL every 6 ity of nebulizer 00:00: (six) [place] solution 00 hours as Medical needed for Branch Wheezing, Shortness of Breath, Bronchospa sm or Chest tightness. guaiFENesin 2023-0 Yes [id number] 200mg Take 10 mL Univers 100 mg/5 mL 5-03 by mouth ity of solution 00:00: every 6 [place] 00 (six) Medical hours as Branch needed for Cough. ipratropium 2023-0 Yes [id number] .5mg Inhale 2.5 Univers 0.02 % 5-03 mL every 6 ity of nebulizer 00:00: (six) [place] solution 00 hours as Medical needed for Branch Wheezing, Shortness of Breath, Bronchospa sm or Chest tightness. guaiFENesin 2023-0 Yes [id number] 200mg Take 10 mL Univers 100 mg/5 mL 5-03 by mouth ity of solution 00:00: every 6 [place] 00 (six) Medical hours as Branch needed for Cough. ipratropium 2023-0 Yes [id number] .5mg Inhale 2.5 Univers 0.02 % 5-03 mL every 6 ity of nebulizer 00:00: (six) [place] solution 00 hours as Medical needed for Branch Wheezing, Shortness of Breath, Bronchospa sm or Chest tightness. guaiFENesin 2023-0 Yes [id number] 200mg Take 10 mL Univers 100 mg/5 mL 5-03 by mouth ity of solution 00:00: every 6 [place] 00 (six) Medical hours as Branch needed for Cough. ipratropium 2023-0 Yes [id number] .5mg Inhale 2.5 Univers 0.02 % 5-03 mL every 6 ity of nebulizer 00:00: (six) [place] solution 00 hours as Medical needed for Branch Wheezing, Shortness of Breath, Bronchospa sm or Chest tightness. guaiFENesin 2023-0 Yes [id number] 200mg Take 10 mL Univers 100 mg/5 mL 5-03 by mouth ity of solution 00:00: every 6 [place] 00 (six) Medical hours as Branch needed for Cough. ipratropium 2023-0 Yes [id number] .5mg Inhale 2.5 Univers 0.02 % 5-03 mL every 6 ity of nebulizer 00:00: (six) [place] solution 00 hours as Medical needed for Branch Wheezing, Shortness of Breath, Bronchospa sm or Chest tightness. guaiFENesin 2023-0 Yes [id number] 200mg Take 10 mL Univers 100 mg/5 mL 5-03 by mouth ity of solution 00:00: every 6 [place] 00 (six) Medical hours as Branch needed for Cough. ipratropium 2023-0 Yes [id number] .5mg Inhale 2.5 Univers 0.02 % 5-03 mL every 6 ity of nebulizer 00:00: (six) [place] solution 00 hours as Medical needed for Branch Wheezing, Shortness of Breath, Bronchospa sm or Chest tightness. guaiFENesin 2023-0 Yes [id number] 200mg Take 10 mL Univers 100 mg/5 mL 5-03 by mouth ity of solution 00:00: every 6 [place] 00 (six) Medical hours as Branch needed for Cough. ipratropium 2023-0 Yes [id number] .5mg Inhale 2.5 Univers 0.02 % 5-03 mL every 6 ity of nebulizer 00:00: (six) [place] solution 00 hours as Medical needed for Branch Wheezing, Shortness of Breath, Bronchospa sm or Chest tightness. guaiFENesin 2023-0 Yes [id number] 200mg Take 10 mL Univers 100 mg/5 mL 5-03 by mouth ity of solution 00:00: every 6 [place] 00 (six) Medical hours as Branch needed for Cough. ipratropium 2023-0 Yes [id number] .5mg Inhale 2.5 Univers 0.02 % 5-03 mL every 6 ity of nebulizer 00:00: (six) [place] solution 00 hours as Medical needed for Branch Wheezing, Shortness of Breath, Bronchospa sm or Chest tightness. guaiFENesin 2023-0 Yes [id number] 200mg Take 10 mL Univers 100 mg/5 mL 5-03 by mouth ity of solution 00:00: every 6 [place] 00 (six) Medical hours as Branch needed for Cough. ipratropium 2023-0 Yes [id number] .5mg Inhale 2.5 Univers 0.02 % 5-03 mL every 6 ity of nebulizer 00:00: (six) [place] solution 00 hours as Medical needed for Branch Wheezing, Shortness of Breath, Bronchospa sm or Chest tightness. guaiFENesin 2023-0 Yes [id number] 200mg Take 10 mL Univers 100 mg/5 mL 5-03 by mouth ity of solution 00:00: every 6 [place] 00 (six) Medical hours as Branch needed for Cough. ipratropium 2023-0 Yes [id number] .5mg Inhale 2.5 Univers 0.02 % 5-03 mL every 6 ity of nebulizer 00:00: (six) [place] solution 00 hours as Medical needed for Branch Wheezing, Shortness of Breath, Bronchospa sm or Chest tightness. guaiFENesin 2023-0 Yes [id number] 200mg Take 10 mL Univers 100 mg/5 mL 5-03 by mouth ity of solution 00:00: every 6 [place] 00 (six) Medical hours as Branch needed for Cough. ipratropium 2023-0 Yes [id number] .5mg Inhale 2.5 Univers 0.02 % 5-03 mL every 6 ity of nebulizer 00:00: (six) [place] solution 00 hours as Medical needed for Branch Wheezing, Shortness of Breath, Bronchospa sm or Chest tightness. guaiFENesin 2023-0 Yes [id number] 200mg Take 10 mL Univers 100 mg/5 mL 5-03 by mouth ity of solution 00:00: every 6 [place] 00 (six) Medical hours as Branch needed for Cough. guaiFENesin 2023-0 Yes [id number] 200mg Take 10 mL Univers 100 mg/5 mL 5-03 by mouth ity of solution 00:00: every 6 [place] 00 (six) Medical hours as Branch needed for Cough. guaiFENesin 2023-0 Yes [id number] 200mg Take 10 mL Univers 100 mg/5 mL 5-03 by mouth ity of solution 00:00: every 6 [place] 00 (six) Medical hours as Branch needed for Cough. guaiFENesin 2023-0 Yes [id number] 200mg Take 10 mL Univers 100 mg/5 mL 5-03 by mouth ity of solution 00:00: every 6 [place] 00 (six) Medical hours as Branch needed for Cough. guaiFENesin 2023-0 Yes [id number] 200mg Take 10 mL Univers 100 mg/5 mL 5-03 by mouth ity of solution 00:00: every 6 [place] 00 (six) Medical hours as Branch needed for Cough. guaiFENesin 2023-0 Yes [id number] 200mg Take 10 mL Univers 100 mg/5 mL 5-03 by mouth ity of solution 00:00: every 6 [place] 00 (six) Medical hours as Branch needed for Cough. guaiFENesin 2023-0 Yes [id number] 200mg Take 10 mL Univers 100 mg/5 mL 5-03 by mouth ity of solution 00:00: every 6 [place] 00 (six) Medical hours as Branch needed for Cough. guaiFENesin 2023-0 Yes [id number] 200mg Take 10 mL Univers 100 mg/5 mL 5-03 by mouth ity of solution 00:00: every 6 [place] 00 (six) Medical hours as Branch needed for Cough. guaiFENesin 2023-0 Yes [id number] 200mg Take 10 mL Univers 100 mg/5 mL 5-03 by mouth ity of solution 00:00: every 6 [place] 00 (six) Medical hours as Branch needed for Cough. guaiFENesin 2023-0 Yes [id number] 200mg Take 10 mL Univers 100 mg/5 mL 5-03 by mouth ity of solution 00:00: every 6 [place] 00 (six) Medical hours as Branch needed for Cough. guaiFENesin 2023-0 Yes [id number] 200mg Take 10 mL Univers 100 mg/5 mL 5-03 by mouth ity of solution 00:00: every 6 [place] 00 (six) Medical hours as Branch needed for Cough. guaiFENesin 2023-0 Yes [id number] 200mg Take 10 mL Univers 100 mg/5 mL 5-03 by mouth ity of solution 00:00: every 6 [place] 00 (six) Medical hours as Branch needed for Cough. guaiFENesin 2023-0 Yes [id number] 200mg Take 10 mL Univers 100 mg/5 mL 5-03 by mouth ity of solution 00:00: every 6 [place] 00 (six) Medical hours as Branch needed for Cough. ipratropium 2022-0 2022- No [id number] .5mg Inhale 2.5 Univers 0.02 % 5-03 06-01 mL every 6 ity of nebulizer 00:00: 00:00 (six) [place] solution 00 :00 hours as Medical needed for Branch Wheezing, Shortness of Breath, Bronchospa sm or Chest tightness. levoFLOXaci 3-0 2022- No [id number] 500mg Take 1 Univers n 500 mg 5- 05-08 tablet by ity o f tablet 00:00: 04:59 mouth in [place] 00 :00 the [facility] for 4 days. levoFLOXaci 2022-0 2022- No [id number] 500mg Take 1 Univers n 500 mg 5- 05-08 tablet by ity o f tablet 00:00: 04:59 mouth in [place] 00 :00 the [facility] for 4 days. levoFLOXaci 2022-2022- No [id number] 500mg Take 1 Univers n 500 mg 5- 05-08 tablet by ity o f tablet 00:00: 04:59 mouth in [place] 00 :00 the [facility] for 4 days. levoFLOXaci 2022-2022- No [id number] 500mg Take 1 Univers n 500 mg 5- 05-08 tablet by ity o f tablet 00:00: 04:59 mouth in [place] 00 :00 the [facility] for 4 days. levoFLOXaci 2022-2022- No [id number] 500mg Take 1 Univers n 500 mg 5- 05-08 tablet by ity o f tablet 00:00: 04:59 mouth in [place] 00 :00 the [facility] for 4 days. levoFLOXaci 2022-0 2022- No [id number] 500mg Take 1 Univers n 500 mg 5- 05-08 tablet by ity o f tablet 00:00: 04:59 mouth in [place] 00 :00 the [facility] for 4 days. levalbutero No 1.25mg 1.25 mg, Univers l (XOPENEX) 01-17 Inhalation i ty of nebulizer 13:00: 11:56 , TID, [place] solution 00 :39 First dose Medic al 1.25 mg on Tue Branch 01/17/23 at 0800, Until Discontinu ed, Routine methylpredn No 125mg 125 mg, U nivers isolone sod 01-17 Intravenou i ty of succ 12:00: 11:11 s, ONCE, 1 [place] (SOLU-MEDRO 00 :00 dose, On Medi lucho L) [facility] 01/17/23 Branch injection at 0700, 2 125 mg mL ipratropium 2023-0 2023- No .5mg 0.5 mg, Un igor (ATROVENT) 5- 05-01 Inhalation it y of 0.02 % 11:45: 11:42 , ONCE, 1 [place] nebulizer 00 :00 dose, On Medica l solution 01/17/23 Branc h 0.5 mg at 0645, MICHAEL albuterol 2022-0 Yes [id number] 2{puff} Inhale 2 Univers 90 5-01 Puffs ity of mcg/actuati 00:00: every 4 [place] on inhaler 00 (four) Medical hours as Branch needed for Wheezing or Shortness of Breath. albuterol 2022-0 Yes [id number] 2.5mg Inhale 3 Univers 2.5 mg /3 5-01 mL every 4 ity of mL (0.083 00:00: (four) [place] %) 00 hours. May Medical nebulizer also Branch solution nebulize one extra every 6 hours. predniSONE 2022-0 Yes [id number] 50mg Take 1 Univers 50 mg 5-01 tablet by ity of tablet 00:00: mouth in [place] 00 the Medical morning. Branch benzonatate 2022-0 Yes [id number] 200mg Take 1 Univers 200 mg 5-01 capsule by ity of capsule 00:00: mouth 3 [place] 00 (three) Medical times Branch daily as needed for Cough. ipratropium 2022-0 Yes [id number] .5mg Inhale 2.5 Univers 0.02 % 5-01 mL every 6 ity of nebulizer 00:00: (six) [place] solution 00 hours as Medical needed for Branch Wheezing, Shortness of Breath, Bronchospa sm or Chest tightness. albuterol 2022-0 Yes [id number] 2{puff} Inhale 2 Univers 90 5-01 Puffs ity of mcg/actuati 00:00: every 4 [place] on inhaler 00 (four) Medical hours as Branch needed for Wheezing or Shortness of Breath. albuterol 2022-0 Yes [id number] 2.5mg Inhale 3 Univers 2.5 mg /3 5-01 mL every 4 ity of mL (0.083 00:00: (four) [place] %) 00 hours. May Medical nebulizer also Branch solution nebulize one extra every 6 hours. benzonatate 2022-0 Yes [id number] 200mg Take 1 Univers 200 mg 5-01 capsule by ity of capsule 00:00: mouth 3 (three) Medical times Branch daily as needed for Cough. albuterol 2022-0 Yes [id number] 2{puff} Inhale 2 Univers 90 5-01 Puffs ity of mcg/actuati 00:00: every 4 [place] on inhaler 00 (four) Medical hours as Branch needed for Wheezing or Shortness of Breath. albuterol 2022-0 Yes [id number] 2.5mg Inhale 3 Univers 2.5 mg /3 5-01 mL every 4 ity of mL (0.083 00:00: (four) [place] %) 00 hours. May Medical nebulizer also Branch solution nebulize one extra every 6 hours. benzonatate 2022-0 Yes [id number] 200mg Take 1 Univers 200 mg 5-01 capsule by ity of capsule 00:00: mouth 3 (three) Medical times Branch daily as needed for Cough. albuterol 2022-0 Yes [id number] 2{puff} Inhale 2 Univers 90 5-01 Puffs ity of mcg/actuati 00:00: every 4 [place] on inhaler 00 (four) Medical hours as Branch needed for Wheezing or Shortness of Breath. albuterol 2022-0 Yes [id number] 2.5mg Inhale 3 Univers 2.5 mg /3 5-01 mL every 4 ity of mL (0.083 00:00: (four) [place] %) 00 hours. May Medical nebulizer also Branch solution nebulize one extra every 6 hours. benzonatate 2022-0 Yes [id number] 200mg Take 1 Univers 200 mg 5-01 capsule by ity of capsule 00:00: mouth 3 00 (three) Medical times Branch daily as needed for Cough. albuterol 2022-0 Yes [id number] 2{puff} Inhale 2 Univers 90 5-01 Puffs ity of mcg/actuati 00:00: every 4 [place] on inhaler 00 (four) Medical hours as Branch needed for Wheezing or Shortness of Breath. albuterol 2022-0 Yes [id number] 2.5mg Inhale 3 Univers 2.5 mg /3 5-01 mL every 4 ity of mL (0.083 00:00: (four) [place] %) 00 hours. May Medical nebulizer also Branch solution nebulize one extra every 6 hours. benzonatate 2022-0 Yes [id number] 200mg Take 1 Univers 200 mg 5-01 capsule by ity of capsule 00:00: mouth 3 [place] 00 (three) Medical times Branch daily as needed for Cough. albuterol 2022-0 Yes [id number] 2{puff} Inhale 2 Univers 90 5-01 Puffs ity of mcg/actuati 00:00: every 4 [place] on inhaler 00 (four) Medical hours as Branch needed for Wheezing or Shortness of Breath. albuterol 2022-0 Yes [id number] 2.5mg Inhale 3 Univers 2.5 mg /3 5-01 mL every 4 ity of mL (0.083 00:00: (four) [place] %) 00 hours. May Medical nebulizer also Branch solution nebulize one extra every 6 hours. benzonatate 2022-0 Yes [id number] 200mg Take 1 Univers 200 mg 5-01 capsule by ity of capsule 00:00: mouth 3 (three) Medical times Branch daily as needed for Cough. albuterol 2022-0 Yes [id number] 2{puff} Inhale 2 Univers 90 5-01 Puffs ity of mcg/actuati 00:00: every 4 [place] on inhaler 00 (four) Medical hours as Branch needed for Wheezing or Shortness of Breath. albuterol 3-0 Yes [id number] 2.5mg Inhale 3 Univers 2.5 mg /3 5-01 mL every 4 ity of mL (0.083 00:00: (four) [place] %) 00 hours. May Medical nebulizer also Branch solution nebulize one extra every 6 hours. benzonatate 3-0 Yes [id number] 200mg Take 1 Univers 200 mg 5-01 capsule by ity of capsule 00:00: mouth 3 [place] (three) Medical times Branch daily as needed for Cough. albuterol 2022-0 Yes [id number] 2{puff} Inhale 2 Univers 90 5-01 Puffs ity of mcg/actuati 00:00: every 4 [place] on inhaler 00 (four) Medical hours as Branch needed for Wheezing or Shortness of Breath. albuterol 3-0 Yes [id number] 2.5mg Inhale 3 Univers 2.5 mg /3 5-01 mL every 4 ity of mL (0.083 00:00: (four) [place] %) 00 hours. May Medical nebulizer also Branch solution nebulize one extra every 6 hours. benzonatate 3-0 Yes [id number] 200mg Take 1 Univers 200 mg 5-01 capsule by ity of capsule 00:00: mouth 3 [place] 00 (three) Medical times Branch daily as needed for Cough. albuterol 2022-0 Yes [id number] 2{puff} Inhale 2 Univers 90 5-01 Puffs ity of mcg/actuati 00:00: every 4 [place] on inhaler 00 (four) Medical hours as Branch needed for Wheezing or Shortness of Breath. albuterol 2022-0 Yes [id number] 2.5mg Inhale 3 Univers 2.5 mg /3 5-01 mL every 4 ity of mL (0.083 00:00: (four) [place] %) 00 hours. May Medical nebulizer also Branch solution nebulize one extra every 6 hours. benzonatate 2022-0 Yes [id number] 200mg Take 1 Univers 200 mg 5-01 capsule by ity of capsule 00:00: mouth 3 (three) Medical times Branch daily as needed for Cough. albuterol 2022-0 Yes [id number] 2{puff} Inhale 2 Univers 90 5-01 Puffs ity of mcg/actuati 00:00: every 4 [place] on inhaler 00 (four) Medical hours as Branch needed for Wheezing or Shortness of Breath. albuterol 2022-0 Yes [id number] 2.5mg Inhale 3 Univers 2.5 mg /3 5-01 mL every 4 ity of mL (0.083 00:00: (four) [place] %) 00 hours. May Medical nebulizer also Branch solution nebulize one extra every 6 hours. benzonatate 3-0 Yes [id number] 200mg Take 1 Univers 200 mg 5-01 capsule by ity of capsule 00:00: mouth 3 [place] 00 (three) Medical times Branch daily as needed for Cough. albuterol 2022-0 Yes [id number] 2{puff} Inhale 2 Univers 90 5-01 Puffs ity of mcg/actuati 00:00: every 4 [place] as on inhaler 00 (four) Medical hours as Branch needed for Wheezing or Shortness of Breath. albuterol 3-0 Yes [id number] 2.5mg Inhale 3 Univers 2.5 mg /3 5-01 mL every 4 ity of mL (0.083 00:00: (four) [place] %) 00 hours. May Medical nebulizer also Branch solution nebulize one extra every 6 hours. benzonatate 2022-0 Yes [id number] 200mg Take 1 Univers 200 mg 5-01 capsule by ity of capsule 00:00: mouth 3 [place] 00 (three) Medical times Branch daily as needed for Cough. albuterol 2022-0 Yes [id number] 2{puff} Inhale 2 Univers 90 5-01 Puffs ity of mcg/actuati 00:00: every 4 [place] on inhaler 00 (four) Medical hours as Branch needed for Wheezing or Shortness of Breath. albuterol 2022-0 Yes [id number] 2.5mg Inhale 3 Univers 2.5 mg /3 5-01 mL every 4 ity of mL (0.083 00:00: (four) [place] %) 00 hours. May Medical nebulizer also Branch solution nebulize one extra every 6 hours. benzonatate 2022-0 Yes [id number] 200mg Take 1 Univers 200 mg 5-01 capsule by ity of capsule 00:00: mouth 3 [place] 00 (three) Medical times Branch daily as needed for Cough. albuterol 3-0 Yes [id number] 2{puff} Inhale 2 Univers 90 5-01 Puffs ity of mcg/actuati 00:00: every 4 [place] as on inhaler 00 (four) Medical hours as Branch needed for Wheezing or Shortness of Breath. albuterol 2023-0 Yes [id number] 2.5mg Inhale 3 Univers 2.5 mg /3 5-01 mL every 4 ity of mL (0.083 00:00: (four) [place] %) 00 hours. May Medical nebulizer also Branch solution nebulize one extra every 6 hours. benzonatate 3-0 Yes [id number] 200mg Take 1 [facility] 200 mg 5-01 capsule by ity of capsule 00:00: mouth 3 [place] 00 (three) Medical times Branch daily as needed for Cough. albuterol 2022-0 Yes [id number] 2{puff} Inhale 2 Univers 90 5-01 Puffs ity of mcg/actuati 00:00: every 4 [place] as on inhaler 00 (four) Medical hours as Branch needed for Wheezing or Shortness of Breath. albuterol 3-0 Yes [id number] 2.5mg Inhale 3 Univers 2.5 mg /3 5-01 mL every 4 ity of mL (0.083 00:00: (four) [place] %) 00 hours. May Medical nebulizer also Branch solution nebulize one extra every 6 hours. benzonatate 2022-0 Yes [id number] 200mg Take 1 [facility] 200 mg 5-01 capsule by ity of capsule 00:00: mouth 3 (three) Medical times Branch daily as needed for Cough. albuterol 2022-0 Yes [id number] 2{puff} Inhale 2 Univers 90 5-01 Puffs ity of mcg/actuati 00:00: every 4 [place] as on inhaler 00 (four) Medical hours as Branch needed for Wheezing or Shortness of Breath. albuterol 3-0 Yes [id number] 2.5mg Inhale 3 Univers 2.5 mg /3 5-01 mL every 4 ity of mL (0.083 00:00: (four) [place] %) 00 hours. May Medical nebulizer also Branch solution nebulize one extra every 6 hours. benzonatate 3-0 Yes [id number] 200mg Take 1 [facility] 200 mg 5-01 capsule by ity of capsule 00:00: mouth 3 (three) Medical times Branch daily as needed for Cough. albuterol 3-0 Yes [id number] 2{puff} Inhale 2 [facility] 90 5-01 Puffs ity of mcg/actuati 00:00: every 4 [place] as on inhaler 00 (four) Medical hours as Branch needed for Wheezing or Shortness of Breath. albuterol 3-0 Yes [id number] 2.5mg Inhale 3 [facility] 2.5 mg /3 5-01 mL every 4 ity of mL (0.083 00:00: (four) [place] %) 00 hours. May Medical nebulizer also Branch solution nebulize one extra every 6 hours. benzonatate 3-0 Yes [id number] 200mg Take 1 [facility] 200 mg 5-01 capsule by ity of capsule 00:00: mouth 3 (three) Medical times Branch daily as needed for Cough. albuterol 2022-0 Yes [id number] 2{puff} Inhale 2 [facility] 90 5-01 Puffs ity of mcg/actuati 00:00: every 4 [place] on inhaler 00 (four) Medical hours as Branch needed for Wheezing or Shortness of Breath. albuterol 2022-0 Yes [id number] 2.5mg Inhale 3 [facility] 2.5 mg /3 5-01 mL every 4 ity of mL (0.083 00:00: (four) [place] %) 00 hours. May Medical nebulizer also Branch solution nebulize one extra every 6 hours. benzonatate 2022-0 Yes [id number] 200mg Take 1 [facility] 200 mg 5-01 capsule by ity of capsule 00:00: mouth 3 (three) Medical times Branch daily as needed for Cough. albuterol 2022-0 Yes [id number] 2.5mg Inhale 3 [facility] 2.5 mg /3 5-01 mL every 4 ity of mL (0.083 00:00: (four) [place] %) 00 hours. May Medical nebulizer also Branch solution nebulize one extra every 6 hours. benzonatate 2022-0 Yes [id number] 200mg Take 1 [facility] 200 mg 5-01 capsule by ity of capsule 00:00: mouth 3 (three) Medical times Branch daily as needed for Cough. albuterol 2022-0 Yes [id number] 2.5mg Inhale 3 [facility] 2.5 mg /3 5-01 mL every 4 ity of mL (0.083 00:00: (four) [place] %) 00 hours. May Medical nebulizer also Branch solution nebulize one extra every 6 hours. benzonatate 3-0 Yes [id number] 200mg Take 1 [facility] 200 mg 5-01 capsule by ity of capsule 00:00: mouth 3 (three) Medical times Branch daily as needed for Cough. albuterol 3-0 Yes [id number] 2.5mg Inhale 3 [facility] 2.5 mg /3 5-01 mL every 4 ity of mL (0.083 00:00: (four) [place] %) 00 hours. May Medical nebulizer also Branch solution nebulize one extra every 6 hours. benzonatate 3-0 Yes [id number] 200mg Take 1 [facility] 200 mg 5-01 capsule by ity of capsule 00:00: mouth 3 [place] 00 (three) Medical times Branch daily as needed for Cough. albuterol 3-0 Yes [id number] 2.5mg Inhale 3 [facility] 2.5 mg /3 5-01 mL every 4 ity of mL (0.083 00:00: (four) [place] %) 00 hours. May Medical nebulizer also Branch solution nebulize one extra every 6 hours. albuterol 3-0 Yes [id number] 2.5mg Inhale 3 [facility] 2.5 mg /3 5-01 mL every 4 ity of mL (0.083 00:00: (four) [place] %) 00 hours. May Medical nebulizer also Branch solution nebulize one extra every 6 hours. albuterol 3-0 Yes [id number] 2.5mg Inhale 3 [facility] 2.5 mg /3 5-01 mL every 4 ity of mL (0.083 00:00: (four) [place] %) 00 hours. May Medical nebulizer also Branch solution nebulize one extra every 6 hours. albuterol 3-0 Yes [id number] 2.5mg Inhale 3 [facility] 2.5 mg /3 5-01 mL every 4 ity of mL (0.083 00:00: (four) [place] %) 00 hours. May Medical nebulizer also Branch solution nebulize one extra every 6 hours. albuterol 3-0 Yes [id number] 2.5mg Inhale 3 [facility] 2.5 mg /3 5-01 mL every 4 ity of mL (0.083 00:00: (four) [place] %) 00 hours. May Medical nebulizer also Branch solution nebulize one extra every 6 hours. albuterol 2023-0 Yes [id number] 2.5mg Inhale 3 [facility] 2.5 mg /3 5-01 mL every 4 ity of mL (0.083 00:00: (four) [place] %) 00 hours. May Medical nebulizer also Branch solution nebulize one extra every 6 hours. albuterol 2023-0 2023- No [id number] 2.5mg Inhale 3 [facility] 2.5 mg /3 01-17 06-15 mL every 4 ity of mL (0.083 00:00: 00:00 (four) [place] %) 00 :00 hours. May Medical nebulizer also Branch solution nebulize one extra every 6 hours. benzonatate No [id number] 200mg Take 1 [facility] 200 mg 01-17- capsule by ity of capsule 00:00: 00:00 mouth 3 [place] 00 :00 (three) Medical times Branch daily as needed for Cough. albuterol No [id number] 2{puff} Inhale 2 [facility] 90 01-17 05-19 Puffs ity of mcg/actuati 00:00: 00:00 every 4 [place] on inhaler 00 :00 (four) Medical hours as Branch needed for Wheezing or Shortness of Breath. predniSONE 2022- No [id number] 50mg Take 1 [facility] 50 mg 01-17-03 tablet by ity of tablet 00:00: 00:00 mouth in [place] 00 :00 the Medical morning. Branch ipratropium 2022- No [id number] .5mg Inhale 2.5 [facility] 0.02 % 01-17 [...] by ity of (KCL-20 14:37: mouth in [place] ORAL) 58 the Medical morning Branch and 1 tablet in the evening. busPIRone 2023-0 Yes 10mg Take 1 Univer s 10 mg 4-21 tablet by ity of tablet 14:36: mouth in [place] 57 the Medical morning Branch and 1 tablet in the evening. rivaroxaban 2023-0 Yes 15mg Take 1 Univ ers 15 mg 4-21 tablet by ity of tablet 14:36: mouth in [place] [address] the Medical morning. Branch ASPIRIN 2023-0 Yes 81mg Take 81 mg Univ ers ORAL 4-21 by mouth ity of 14:36: in the [place] [address] morning. Medical tablet Branch benazepriL 2023-0 Yes 10mg Take 1 [facility] rs 10 mg 4-21 tablet by ity of tablet 14:36: mouth in [place] [address] the Medical morning. Branch busPIRone 2023-0 Yes 10mg Take 1 [facility]iver s 10 mg 4-21 tablet by ity of tablet 14:36: mouth in [place] [address] the Medical morning Branch and 1 tablet in the evening. rivaroxaban 2023-0 Yes 15mg Take 1 Univ ers 15 mg 4-21 tablet by ity of tablet 14:36: mouth in [place] [address] the Medical morning. Branch ASPIRIN 2023-0 Yes 81mg Take 81 mg Univ ers ORAL 4-21 by mouth ity of 14:36: in the [place] [address] morning. Medical tablet Branch benazepriL 2023-0 Yes 10mg Take 1 [facility] rs 10 mg 4-21 tablet by ity of tablet 14:36: mouth in [place] [address] the Medical morning. Branch busPIRone 2023-0 Yes 10mg Take 1 [facility] s 10 mg 4-21 tablet by ity of tablet 14:36: mouth in [place] [address] the Medical morning Branch and 1 tablet in the evening. rivaroxaban 2023-0 Yes 15mg Take 1 Univ ers 15 mg 4-21 tablet by ity of tablet 14:36: mouth in [place] [address] the Medical morning. Branch ASPIRIN 2023-0 Yes 81mg Take 81 mg Univ ers ORAL 4-21 by mouth ity of 14:36: in the [place] [address] morning. Medical tablet Branch benazepriL 2023-0 Yes 10mg Take 1 [facility] rs 10 mg 4-21 tablet by ity of tablet 14:36: mouth in [place] [address] the Medical morning. Branch busPIRone 2023-0 Yes 10mg Take 1 [facility] s 10 mg 4-21 tablet by ity of tablet 14:36: mouth in [place] [address] the Medical morning Branch and 1 tablet in the evening. rivaroxaban 2023-0 Yes 15mg Take 1 Univ ers 15 mg 4-21 tablet by ity of tablet 14:36: mouth in [place] [address] the Medical morning. Branch ASPIRIN 2023-0 Yes 81mg Take 81 mg Univ ers ORAL 4-21 by mouth ity of 14:36: in the [place] [address] morning. Medical tablet Branch benazepriL 2023-0 Yes 10mg Take 1 [facility] rs 10 mg 4-21 tablet by ity of tablet 14:36: mouth in [place] [address] the Medical morning. Branch donepeziL 5 2023-0 Yes 5mg Take 1 Univ ers mg tablet 4-21 tablet by ity o f 00:00: mouth in [place] 00 the Medical morning. Branch memantine 5 2023-0 Yes 5mg Take 1 Univ ers mg tablet 4-21 tablet by ity o f 00:00: mouth in [place] 00 the Medical morning. Branch donepeziL 5 2023-0 Yes 5mg Take 1 [facility] ers mg tablet 4-21 tablet by ity o f 00:00: mouth in [place] 00 the Medical morning. Branch memantine 5 2023-0 Yes 5mg Take 1 [facility] ers mg tablet 4-21 tablet by ity o f 00:00: mouth in [place] 00 the Medical morning. Branch donepeziL 5 2023-0 Yes 5mg Take 1 [facility] ers mg tablet 4-21 tablet by ity o f 00:00: mouth in [place] 00 the Medical morning. Branch memantine 5 2023-0 Yes 5mg Take 1 [facility] ers mg tablet 4-21 tablet by ity o f 00:00: mouth in [place] 00 the Medical morning. Branch donepeziL 5 2023-0 Yes 5mg Take 1 [facility] ers mg tablet 4-21 tablet by ity o f 00:00: mouth in [place] 00 the Medical morning. Branch memantine 5 2023-0 Yes 5mg Take 1 [facility] ers mg tablet 4-21 tablet by ity o f 00:00: mouth in [place] 00 the Medical morning. Branch donepeziL 5 2023-0 Yes 5mg Take 1 Univ ers mg tablet 4-21 tablet by ity o f 00:00: mouth in [place] 00 the Medical morning. Branch memantine 5 2023-0 Yes 5mg Take 1 [facility] ers mg tablet 4-21 tablet by ity o f 00:00: mouth in [place] 00 the Medical morning. Branch donepeziL 5 2023-0 Yes 5mg Take 1 [facility] ers mg tablet 4-21 tablet by ity o f 00:00: mouth in [place] 00 the Medical morning. Branch memantine 5 2023-0 Yes 5mg Take 1 [facility] ers mg tablet 4-21 tablet by ity o f 00:00: mouth in [place] the Medical morning. Branch donepeziL 5 2023-0 Yes 5mg Take 1 [facility] ers mg tablet 4-21 tablet by ity o f 00:00: mouth in [place] the Medical morning. Branch memantine 5 2023-0 Yes 5mg Take 1 [facility] ers mg tablet 4-21 tablet by ity o f 00:00: mouth in [place] the Medical morning. Branch donepeziL 5 2023-0 Yes 5mg Take 1 [facility] ers mg tablet 4-21 tablet by ity o f 00:00: mouth in [place] the Medical morning. Branch memantine 5 2023-0 Yes 5mg Take 1 [facility] ers mg tablet 4-21 tablet by ity o f 00:00: mouth in [place] the Medical morning. Branch donepeziL 5 2023-0 Yes 5mg Take 1 [facility] ers mg tablet 4-21 tablet by ity o f 00:00: mouth in [place] the Medical morning. Branch memantine 5 2023-0 Yes 5mg Take 1 [facility] ers mg tablet 4-21 tablet by ity o f 00:00: mouth in [place] 00 the Medical morning. Branch donepeziL 5 2023-0 Yes 5mg Take 1 [facility] ers mg tablet 4-21 tablet by ity o f 00:00: mouth in [place] 00 the Medical morning. Branch memantine 5 2023-0 Yes 5mg Take 1 [facility] ers mg tablet 4-21 tablet by ity o f 00:00: mouth in [place] 00 the Medical morning. Branch donepeziL 5 2023-0 Yes 5mg Take 1 [facility] ers mg tablet 4-21 tablet by ity o f 00:00: mouth in [place] 00 the Medical morning. Branch memantine 5 2023-0 Yes 5mg Take 1 [facility] ers mg tablet 4-21 tablet by ity o f 00:00: mouth in [place] 00 the Medical morning. Branch donepeziL 5 2023-0 Yes 5mg Take 1 [facility] ers mg tablet 4-21 tablet by ity o f 00:00: mouth in [place] 00 the Medical morning. Branch memantine 5 2023-0 Yes 5mg Take 1 [facility] ers mg tablet 4-21 tablet by ity o f 00:00: mouth in [place] 00 the Medical morning. Branch donepeziL 5 2023-0 Yes 5mg Take 1 [facility] ers mg tablet 4-21 tablet by ity o f 00:00: mouth in [place] the Medical morning. Branch memantine 5 2023-0 Yes 5mg Take 1 [facility] ers mg tablet 4-21 tablet by ity o f 00:00: mouth in [place] the Medical morning. Branch donepeziL 5 2023-0 Yes 5mg Take 1 [facility] ers mg tablet 4-21 tablet by ity o f 00:00: mouth in [place] the Medical morning. Branch memantine 5 2023-0 Yes 5mg Take 1 [facility] ers mg tablet 4-21 tablet by ity o f 00:00: mouth in [place] the Medical morning. Branch donepeziL 5 2023-0 Yes 5mg Take 1 [facility] ers mg tablet 4-21 tablet by ity o f 00:00: mouth in [place] the Medical morning. Branch memantine 5 2023-0 Yes 5mg Take 1 [facility] ers mg tablet 4-21 tablet by ity o f 00:00: mouth in [place] the Medical morning. Branch donepeziL 5 2023-0 Yes 5mg Take 1 [facility] ers mg tablet 4-21 tablet by ity o f 00:00: mouth in [place] 00 the Medical morning. Branch memantine 5 2023-0 Yes 5mg Take 1 [facility] ers mg tablet 4-21 tablet by ity o f 00:00: mouth in [place] 00 the Medical morning. Branch donepeziL 5 2023-0 Yes 5mg Take 1 [facility] ers mg tablet 4-21 tablet by ity o f 00:00: mouth in [place] 00 the Medical morning. Branch memantine 5 2023-0 Yes 5mg Take 1 [facility] ers mg tablet 4-21 tablet by ity o f 00:00: mouth in [place] 00 the Medical morning. Branch donepeziL 5 2023-0 Yes 5mg Take 1 [facility] ers mg tablet 4-21 tablet by ity o f 00:00: mouth in [place] 00 the Medical morning. Branch memantine 5 2023-0 Yes 5mg Take 1 [facility] ers mg tablet 4-21 tablet by ity o f 00:00: mouth in [place] the Medical morning. Branch donepeziL 5 2023-0 Yes 5mg Take 1 [facility] ers mg tablet 4-21 tablet by ity o f 00:00: mouth in [place] 00 the Medical morning. Branch memantine 5 2023-0 Yes 5mg Take 1 [facility] ers mg tablet 4-21 tablet by ity o f 00:00: mouth in [place] the Medical morning. Branch donepeziL 5 2023-0 Yes 5mg Take 1 [facility] ers mg tablet 4-21 tablet by ity o f 00:00: mouth in [place] the Medical morning. Branch memantine 5 2023-0 Yes 5mg Take 1 [facility] ers mg tablet 4-21 tablet by ity o f 00:00: mouth in [place] the Medical morning. Branch donepeziL 5 2023-0 Yes 5mg Take 1 [facility] ers mg tablet 4-21 tablet by ity o f 00:00: mouth in [place] the Medical morning. Branch memantine 5 2023-0 Yes 5mg Take 1 [facility] ers mg tablet 4-21 tablet by ity o f 00:00: mouth in [place] the Medical morning. Branch donepeziL 5 2023-0 Yes 5mg Take 1 [facility] ers mg tablet 4-21 tablet by ity o f 00:00: mouth in [place] the Medical morning. Branch memantine 5 2023-0 Yes 5mg Take 1 [facility] ers mg tablet 4-21 tablet by ity o f 00:00: mouth in [place] 00 the Medical morning. Branch donepeziL 5 2023-0 Yes 5mg Take 1 [facility] ers mg tablet 4-21 tablet by ity o f 00:00: mouth in [place] 00 the Medical morning. Branch memantine 5 2023-0 Yes 5mg Take 1 [facility] ers mg tablet 4-21 tablet by ity o f 00:00: mouth in [place] 00 the Medical morning. Branch donepeziL 5 2023-0 Yes 5mg Take 1 [facility] ers mg tablet 4-21 tablet by ity o f 00:00: mouth in [place] 00 the Medical morning. Branch memantine 5 2023-0 Yes 5mg Take 1 [facility] ers mg tablet 4-21 tablet by ity o f 00:00: mouth in [place] 00 the Medical morning. Branch donepeziL 5 2023-0 Yes 5mg Take 1 [facility] ers mg tablet 4-21 tablet by ity o f 00:00: mouth in [place] 00 the Medical morning. Branch memantine 5 2023-0 Yes 5mg Take 1 [facility] ers mg tablet 4-21 tablet by ity o f 00:00: mouth in [place] 00 the Medical morning. Branch donepeziL 5 2023-0 Yes 5mg Take 1 [facility] ers mg tablet 4-21 tablet by ity o f 00:00: mouth in [place] 00 the Medical morning. Branch memantine 5 2023-0 Yes 5mg Take 1 [facility] ers mg tablet 4-21 tablet by ity o f 00:00: mouth in [place] 00 the Medical morning. Branch donepeziL 5 2023-0 Yes 5mg Take 1 [facility] ers mg tablet 4-21 tablet by ity o f 00:00: mouth in [place] 00 the Medical morning. Branch memantine 5 2023-0 Yes 5mg Take 1 Univ ers mg tablet 4-21 tablet by ity o f 00:00: mouth in [place] 00 the Medical morning. Branch donepeziL 5 2023-0 2023- No 5mg Take 1 [facility] vers mg tablet 01-07- tablet by ity of 00:00: 00:00 mouth in [place] 00 :00 the Medical morning. Branch memantine 5 2023-0 2023- No 5mg Take 1 Uni vers mg tablet 01-07- tablet by ity of 00:00: 00:00 mouth in [place] 00 :00 the Medical morning. Branch donepeziL 5 2023-0 2023- No 5mg Take 1 [facility] vers mg tablet 01-07- tablet by ity of 00:00: 00:00 mouth in [place] 00 :00 the Medical morning. Branch memantine 5 2023-0 2023- No 5mg Take 1 [facility] vers mg tablet 01-07- tablet by ity of 00:00: 00:00 mouth in [place] 00 :00 the Medical morning. Branch tamsulosin 2023-0 2023- No [id number] .4mg Take 1 [facility] 0.4 mg 24 3-27 04-27 capsule by ity of hr capsule 00:00: 04:59 mouth in [place] 00 :00 the Medical morning Branch for 30 days. tamsulosin 2023-0 2022- No [id number] .4mg Take 1 [facility] 0.4 mg 24 12-13- capsule by ity of hr capsule 00:00: 04:59 mouth in [place] 00 :00 the Medical morning Branch for 30 days. tamsulosin 3-0 3- No [id number] .4mg Take 1 [facility] 0.4 mg 12-13- capsule by ity of hr capsule 00:00: 04:59 mouth in [place] 00 :00 the Medical morning Branch for 30 days. tamsulosin 3-0 2022- No [id number] .4mg Take 1 [facility] 0.4 mg 24 12-13 capsule by ity of hr capsule 00:00: 04:59 mouth in [place] 00 :00 the Medical morning Branch for 30 days. tamsulosin 2022-0 2022- No [id number] .4mg Take 1 [facility] 0.4 mg 12-13 capsule by ity of hr capsule 00:00: 04:59 mouth in [place] 00 :00 the Medical morning Branch for 30 days. tamsulosin 3-0 2022- No [id number] .4mg Take 1 [facility] 0.4 mg 12-13 capsule by ity of hr capsule 00:00: 04:59 mouth in [place] 00 :00 the Medical morning Branch for 30 days. donepeziL 2022-0 Yes 5mg 5 mg, Univers (ARICEPT) 3-26 Oral, ity of tablet 5 mg 17:30: DAILY, [place] 00 First dose Medical on [facility] 12/12/22 at 1230, Until Discontinu ed, Routine memantine 3-0 Yes 5mg 5 mg, Univers (NAMENDA) 3-26 Oral, ity of tablet 5 mg 17:30: DAILY, [place] 00 First dose Medical on [facility] 12/12/22 at 1230, Until Discontinu ed, Routine
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 rivaroxaban 2023-0 Yes 15mg Take 1 Univ ers (XARELTO) 3-26 tablet by ity o f 15 mg 14:37: mouth in [place] tablet 13 the Medical morning. Branch aspirin 81 3-0 Yes 81mg Take 81 mg U nivers mg chewable 3-26 by mouth ity of tablet 14:37: in the [place] [address] morning. Medical tablet Branch busPIRone 2023-0 Yes 10mg Take 1 Univer s 10 mg 3-26 tablet by ity of tablet 14:37: mouth in [place] [address] the Medical morning Branch and 1 tablet in the evening. rivaroxaban 2023-0 Yes 15mg Take 1 Univ ers (XARELTO) 3-26 tablet by ity o f 15 mg 14:37: mouth in [place] tablet 13 the Medical morning. Branch busPIRone 2023-0 Yes 10mg Take 1 Univer s 10 mg 3-26 tablet by ity of tablet 14:37: mouth in [place] [address] the Medical morning Branch and 1 tablet in the evening. rivaroxaban 2023-0 Yes 15mg Take 1 Univ ers (XARELTO) 3-26 tablet by ity o f 15 mg 14:37: mouth in [place] tablet 13 the Medical morning. Branch aspirin 81 3-0 Yes 81mg Take 81 mg U nivers mg chewable 3-26 by mouth ity of tablet 14:37: in the [place] [address] morning. Medical tablet Branch busPIRone 2023-0 Yes 10mg Take 1 Univer s 10 mg 3-26 tablet by ity of tablet 14:37: mouth in [place] [address] the Medical morning Branch and 1 tablet in the evening. rivaroxaban 2023-0 Yes 15mg Take 1 Univ ers (XARELTO) 3-26 tablet by ity o f 15 mg 14:37: mouth in [place] tablet 13 the Medical morning. Branch aspirin 81 2023-0 Yes 81mg Take 81 mg U nivers mg chewable 3-26 by mouth ity of tablet 14:37: in the [place] [address] morning. Medical tablet Branch tamsulosin 2023-0 Yes .4mg 0.4 mg, Univ ers (FLOMAX) 3-26 Oral, ity of capsule 0.4 14:00: DAILY, [place] mg 00 First dose Medical on [place] [facility] 12/12/22 at 0900, Until Discontinu ed, Routine aspirin EC Yes 81mg 81 mg, Unive rs tablet 81 12-12 Oral, ity of mg 14:00: DAILY, [place] 00 First dose Medical on [place] Branch 12/12/22 at 0900, Until Discontinu ed, Routine methylpredn Yes 40mg 40 mg, Univ ers isolone sod 12-12 Intravenou it y of succ 14:00: s, DAILY, [place] (SOLU-MEDRO 00 First dose Me dical L) (after Branch injection last 40 mg modificati on) on [place] 12/12/22 at 0900, Until Discontinu ed, Routine carvediloL 2022- No 25mg Take 1 Univ ers 25 mg 12-12 tablet by ity of tablet 11:47: 00:00 mouth in [place] 13 :00 the Medical morning Branch and 1 tablet in the evening. Take with meals. busPIRone 2022-2022- No 30mg Take 1 Unive rs 30 mg 12-12 tablet by ity of tablet 11:47: 00:00 mouth in [place] 13 :00 the Medical morning Branch and 1 tablet in the evening. KCL 20 mEq 2022-2022- No Take by Uni vers tablet 12-12 mouth 2 ity of 11:47: 00:00 (two) [place] 13 :00 times Medical daily. Branch benazepriL 2022-2022- No 10mg Take 1 Univ ers 10 mg 12-12 tablet by ity of tablet 11:47: 00:00 mouth in [place] 13 :00 the Medical morning. Branch hydroCHLORO 2022-0 2022- No 25mg Take 1 Uni vers thiazide 25 12-12 tablet by it y of mg tablet 11:47: 00:00 mouth in [facility] as 13 :00 the Medical morning. Branch melatonin 0 Yes 6mg 6 mg, Univers (MELATIN) - Oral, QHS, ity of tablet 6 mg 02:00: First dose [place] 00 on Sat Medical 12/11/22 at Branch 2100, Until Discontinu ed, Routine atorvastati Yes 40mg 40 mg, Univ ers n (LIPITOR) 3-26 Oral, QHS, it y of tablet 40 02:00: First dose [place] mg 00 on [facility] Medical 12/11/22 at Branch 2100, Until Discontinu ed, Routine carvediloL 2022- No [id number] 3.125mg Take 1 Univers 3.125 mg 3- 04-26 tablet by ity o f tablet 00:00: 04:59 mouth in [place] 00 :00 the [facility] and 1 tablet in the evening. Take with meals. Do all this for 30 days. atorvastati 2022- No [id number] 40mg Take 1 Univers n 40 mg 3-12 01- tablet by ity of tablet 00:00: 04:59 mouth at [place] 00 :00 bedtime [facility] for 30 Branch days. donepeziL 5 2022- No [id number] 5mg Take 1 Univers mg tablet 12-12- tablet by ity of 00:00: 04:59 mouth in [place] 00 :00 [facility] for 30 days. memantine 5 2022- No [id number] 5mg Take 1 [facility] mg tablet 12-12- tablet by ity of 00:00: 04:59 mouth in [place] 00 :00 [facility] for 30 days. carvediloL 2022- No [id number] 3.125mg Take 1 Univers 3.125 mg -12 01- tablet by ity o f tablet 00:00: 04:59 mouth in [place] 00 :00 [facility] and 1 tablet in the evening. Take with meals. Do all this for 30 days. atorvastati 2022- No [id number] 40mg Take 1 Univers n 40 mg -12 01- tablet by ity of tablet 00:00: 04:59 mouth at [place] 00 :00 bedtime Medical for 30 Branch days. donepeziL 5 2022- No [id number] 5mg Take 1 [facility] mg tablet -12 01- tablet by ity of 00:00: 04:59 mouth in [place] 00 :00 [facility] for 30 days. memantine 5 2022- No [id number] 5mg Take 1 [facility] mg tablet -12 01- tablet by ity of 00:00: 04:59 mouth in [place] 00 :00 [facility] for 30 days. carvediloL 2022- No [id number] 3.125mg Take 1 Univers 3.125 mg -12 01- tablet by ity o f tablet 00:00: 04:59 mouth in [place] 00 :00 the [facility] and 1 tablet in the evening. Take with meals. Do all this for 30 days. atorvastati 2022- No [id number] 40mg Take 1 Univers n 40 mg -12 01- tablet by ity of tablet 00:00: 04:59 mouth at [place] 00 :00 [facility] for 30 Branch days. donepeziL 5 2022- No [id number] 5mg Take 1 Univers mg tablet 12-12 tablet by ity of 00:00: 04:59 mouth in [place] 00 :00 [facility] for 30 days. memantine 5 2022- No [id number] 5mg Take 1 [facility] mg tablet 12-12 tablet by ity of 00:: 04:59 mouth in [place] 00 :00 [facility] for 30 days. carvediloL 2022- No [id number] 3.125mg Take 1 Univers 3.125 mg -12 01- tablet by ity o f tablet 00:: 04:59 mouth in [place] 00 :00 the [facility] and 1 tablet in the evening. Take with meals. Do all this for 30 days. atorvastati 2022- No [id number] 40mg Take 1 Univers n 40 mg -12 01- tablet by ity of tablet 00:00: 04:59 mouth at [place] 00 :00 [facility] for 30 Branch days. carvediloL 2022- No [id number] 3.125mg Take 1 Univers 3.125 mg -12 01- tablet by ity o f tablet 00:00: 04:59 mouth in [place] 00 :00 [facility] and 1 tablet in the evening. Take with meals. Do all this for 30 days. atorvastati 2022- No [id number] 40mg Take 1 Univers n 40 mg 3-12 01- tablet by ity of tablet 00:00: 04:59 mouth at [place] 00 :00 bedtime Medical for 30 Branch days. carvediloL 2022- No [id number] 3.125mg Take 1 Univers 3.125 mg 12-12 tablet by ity o f tablet 00:00: 04:59 mouth in [place] 00 :00 the [facility] and 1 tablet in the evening. Take with meals. Do all this for 30 days. atorvastati 2022- No [id number] 40mg Take 1 [facility] n 40 mg 12-12 tablet by ity of tablet 00:00: 04:59 mouth at [place] 00 :00 bedtime Medical for 30 Branch days. donepeziL 5 2022- No [id number] 5mg Take 1 [facility] mg tablet 12-12 tablet by ity of 00:00: 00:00 mouth in [place] 00 :00 [facility] for 30 days. memantine 5 2022- No [id number] 5mg Take 1 [facility] mg tablet 12-12 tablet by ity of 00:00: 00:00 mouth in [place] 00 :00 [facility] for 30 days. donepeziL 5 2022- No [id number] 5mg Take 1 [facility] mg tablet 12-12 tablet by ity of 00:00: 00:00 mouth in [place] 00 :00 [facility] for 30 days. memantine 5 2022- No [id number] 5mg Take 1 [facility] mg tablet 12-12 tablet by ity of 00:00: 00:00 mouth in [place] 00 :00 [facility] for 30 days. levalbutero Yes 1.25mg 1.25 mg, Univers l (XOPENEX) 3-25 Inhalation it y of nebulizer 17:00: , QID, [place] solution 00 First dose Medic al 1.25 mg (after Branch last modificati on) on [facility] 12/11/22 at 1200, Until Discontinu ed, Routine rivaroxaban Yes 15mg 15 mg, Univ ers (XARELTO) 3-25 Oral, ity of tablet 15 14:00: DAILY, [place] mg 00 First dose Medical on [facility] 12/11/22 at 0900, Until Discontinu ed, Routine nicotine 2023-0 Yes 1{patch 1 Patch, [facility] (NICODERM) 25 } Topical, ity o f 21 mg/24 hr 13:45: Administer [place] patch 1 00 over 24 Medical Patch Hours, Branch Q24H, First dose on 12/11/22 at 0845, Until Discontinu ed, Routine ipratropium 2022-0 Yes .5mg 0.5 mg, Uni vers (ATROVENT) 25 Inhalation ity of 0.02 % 13:00: , QID, [place] nebulizer 00 First dose Medi lucho solution on [facility] Branch 0.5 mg 12/11/22 at 0800, Until Discontinu ed carvediloL 2022-0 Yes 3.125mg 3.125 mg, Univers (COREG) 325 Oral, BID ity of tablet 13:00: MEALS, [place] 3.125 mg 00 First dose Medic al on [facility] Branch 12/11/22 at 0800, Until Discontinu ed, Routine busPIRone 2022-0 Yes 10mg 10 mg, Univer s (BUSPAR) 25 Oral, BID, ity o f tablet 10 13:00: First dose [place] mg 00 on [facility] Medical 12/11/22 at Branch 0800, Until Discontinu ed, Routine methylpredn 2022-0 2022- No 125mg 125 mg, U nivers isolone sod 12-11-25 Intravenou i ty of succ 05:00: 12:35 s, Q6H, [place] (SOLU-MEDRO 00 :32 First dose Me dical L) on [facility] Branch injection 12/11/22 at 125 mg 0000, Until Discontinu ed, Routine NaCl 0.9% 0 202- No 1000mL at 100 Uni vers (NS) [...] [place] Puff 09 Starting Medical on Tue Branch 12/10/22 at 2217, Until Discontinu ed, Routine, Wheezing, Shortness of Breath ondansetron Yes 4mg 4 mg, Slow Univers (ZOFRAN 3-25 IV Push, ity of (PF)) 03:05: Q6HPRN, [place] injection 4 14 Starting Medi lucho mg on Fri Branch 12/10/22 at 2205, Until Discontinu ed, Routine, Nausea and Vomiting (N/V) HYDROcodone Yes 1{tbl} 1 tablet, Univers -acetaminop 25 Oral, ity of hen (NORCO) 03:05: Q6HPRN, [place] as 10-325 mg 00 Starting Medica l tablet 1 on Fri Branch tablet 12/10/22 at 2205, Until Discontinu ed, Routine, Pain (scale 7-10) HYDROcodone 0 2022- No 1{tbl} 1 tablet, Univers -acetaminop 12-11 03-27 Oral, ity of hen (NORCO 03:04: 03:03 Q6HPRN, [place] 5) 5-325 mg 56 :56 Starting Medi lucho tablet 1 on Fri Branch tablet 12/10/22 at 2204, Until 12/12/22 at 2203, Routine, Pain (scale 4-6) acetaminoph Yes 650mg 650 mg, [facility] en 25 Oral, ity of (TYLENOL) 03:04: Q6HPRN, [place] tablet 650 50 Starting Medic al mg on Fri Branch 12/10/22 at 2204, Until Discontinu ed, Routine, Pain (scale 1-3) levalbutero 2022- No 1.25mg 1.25 mg, Univers l (XOPENEX) 12-11 03-25 Inhalation i ty of nebulizer 01:00: 15:57 , TID, [place] solution 00 :00 First dose Medic al 1.25 mg on Fri Branch 12/10/22 at 2000, Until Discontinu ed, Routine NaCl 0.9% 2022- No 1000mL at 999 Uni vers (NS) bolus 12-11 03-25 mL/hr, ity of infusion 00:15: 03:18 1,000 mL, [place] as 1,000 mL 00 :00 IV Medical Infusion, Branch ONCE, 1 dose, On Tue12/10/22 at 1915, STAT ipratropium 2022-0 Yes .5mg 0.5 mg, Uni vers (ATROVENT) 3-24 Inhalation ity of 0.02 % 23:48: , Q4HPRN, [place] nebulizer 58 Starting Medica l solution on Tue Branch 0.5 mg 12/10/22 at 1848, Until Discontinu ed, Routine, Wheezing, Shortness of Breath NaCl 0.9% 2022-0 2023- No 500mL at 999 Univ ers (NS) bolus 18 03-18 mL/hr, 500 it y of infusion 16:15: 15:41 mL, IV [place] 500 mL 00 :58 Piggyback, Medical ONCE, 1 Branch dose, On 12/04/22 at 1115, STAT carvediloL 2022-0 Yes 3.125mg Take 1 [facility] 3.125 mg 3-18 tablet by ity of tablet 12:44: mouth in [place] 03 the Medical morning Branch and 1 tablet in the evening. Take with meals. busPIRone 3-0 Yes 10mg Take 1 Univer s 10 mg 3-18 tablet by ity of tablet 12:44: mouth in [place] [address] the Medical morning Branch and 1 tablet in the evening. busPIRone 2023-0 Yes 30mg Take 1 Univer s 30 mg 3-18 tablet by ity of tablet 12:44: mouth in [place] [address] the Medical morning Branch and 1 tablet in the evening. KCL 20 mEq 2022-0 Yes Take by Univ ers tablet 3-18 mouth 2 ity of 12:44: (two) [place] [address] times Medical daily. Branch benazepriL 2023-0 Yes 10mg Take 1 Unive rs 10 mg 3-18 tablet by ity of tablet 12:44: mouth in [place] 03 the Medical morning. Branch rivaroxaban 2023-0 Yes 15mg Take 1 Univ ers (XARELTO) 3-18 tablet by ity o f 15 mg 12:44: mouth in [place] tablet 03 the Medical morning. Branch carvediloL 2023-0 Yes 3.125mg Take 1 [facility] 3.125 mg 3-18 tablet by ity of tablet 12:44: mouth in [place] [address] the Medical morning Branch and 1 tablet in the evening. Take with meals. busPIRone 2023-0 Yes 10mg Take 1 Univer s 10 mg 3-18 tablet by ity of tablet 12:44: mouth in [place] 03 the Medical morning Branch and 1 tablet in the evening. busPIRone 2023-0 Yes 30mg Take 1 Univer s 30 mg 3-18 tablet by ity of tablet 12:44: mouth in [place] 03 the Medical morning Branch and 1 tablet in the evening. KCL 20 mEq 2023-0 Yes Take by Univ ers tablet 3-18 mouth 2 ity of 12:44: (two) [place] 03 times Medical daily. Branch benazepriL 2023-0 Yes 10mg Take 1 Unive rs 10 mg 3-18 tablet by ity of tablet 12:44: mouth in [place] 03 the Medical morning. Branch rivaroxaban 2023-0 Yes 15mg Take 1 Univ ers (XARELTO) 3-18 tablet by ity o f 15 mg 12:44: mouth in [place] tablet 03 the Medical morning. Branch carvediloL 2023-0 Yes 3.125mg Take 1 [facility] 3.125 mg 3-18 tablet by ity of tablet 12:44: mouth in [place] 03 the Medical morning Branch and 1 tablet in the evening. Take with meals. busPIRone 2023-0 Yes 10mg Take 1 Univer s 10 mg 3-18 tablet by ity of tablet 12:44: mouth in [place] 03 the Medical morning Branch and 1 tablet in the evening. busPIRone 2023-0 Yes 30mg Take 1 Univer s 30 mg 3-18 tablet by ity of tablet 12:44: mouth in [place] 03 the Medical morning Branch and 1 tablet in the evening. KCL 20 mEq 2023-0 Yes Take by Univ ers tablet 3-18 mouth 2 ity of 12:44: (two) [place] 03 times Medical daily. Branch benazepriL 2023-0 Yes 10mg Take 1 Unive rs 10 mg 3-18 tablet by ity of tablet 12:44: mouth in [place] 03 the Medical morning. Branch rivaroxaban 2023-0 Yes 15mg Take 1 Univ ers (XARELTO) 3-18 tablet by ity o f 15 mg 12:44: mouth in [place] tablet 03 the Medical morning. Branch carvediloL 2023-0 Yes 3.125mg Take 1 [facility] 3.125 mg 3-18 tablet by ity of tablet 12:44: mouth in [place] 03 the Medical morning Branch and 1 tablet in the evening. Take with meals. busPIRone 2022-0 Yes 10mg Take 1 Univer s 10 mg 3-18 tablet by ity of tablet 12:44: mouth in [place] 03 the Medical morning Branch and 1 tablet in the evening. busPIRone 2022-0 Yes 30mg Take 1 Univer s 30 mg 3-18 tablet by ity of tablet 12:44: mouth in [place] 03 the Medical morning Branch and 1 tablet in the evening. KCL 20 mEq 2022-0 Yes Take by Univ ers tablet 3-18 mouth 2 ity of 12:44: (two) [place] 03 times Medical daily. Branch benazepriL 0 Yes 10mg Take 1 Unive rs 10 mg 3-18 tablet by ity of tablet 12:44: mouth in [place] 03 the Medical morning. Branch rivaroxaban 0 Yes 15mg Take 1 Univ ers (XARELTO) 3-18 tablet by ity o f 15 mg 12:44: mouth in [facility] 03 the Medical morning. Branch albuterol Yes [id number] 2{puff} Inhale 2 Univers 90 3-18 Puffs ity of mcg/actuati 00:00: every 6 [place] on inhaler 00 (six) Medical hours as Branch needed for Wheezing or Shortness of Breath. albuterol Yes [id number] 2{puff} Inhale 2 Univers 90 3-18 Puffs ity of mcg/actuati 00:00: every 6 [place] on inhaler 00 (six) Medical hours as Branch needed for Wheezing or Shortness of Breath. albuterol 0 Yes [id number] 2{puff} Inhale 2 Univers 90 3-18 Puffs ity of mcg/actuati 00:00: every 6 [place] on inhaler 00 (six) Medical hours as Branch needed for Wheezing or Shortness of Breath. albuterol 2022-0 Yes [id number] 2{puff} Inhale 2 Univers 90 3-18 Puffs ity of mcg/actuati 00:00: every 6 [place] on inhaler 00 (six) Medical hours as Branch needed for Wheezing or Shortness of Breath. albuterol 2022-0 Yes [id number] 2{puff} Inhale 2 Univers 90 3-18 Puffs ity of mcg/actuati 00:00: every 6 [place] on inhaler 00 (six) Medical hours as Branch needed for Wheezing or Shortness of Breath. albuterol Yes [id number] 2{puff} Inhale 2 Univers 90 3-18 Puffs ity of mcg/actuati 00:00: every 6 [place] on inhaler 00 (six) Medical hours as Branch needed for Wheezing or Shortness of Breath. albuterol Yes [id number] 2{puff} Inhale 2 Univers 90 3-18 Puffs ity of mcg/actuati 00:00: every 6 [place] on inhaler 00 (six) Medical hours as Branch needed for Wheezing or Shortness of Breath. albuterol Yes [id number] 2{puff} Inhale 2 Univers 90 3-18 Puffs ity of mcg/actuati 00:00: every 6 [place] on inhaler 00 (six) Medical hours as Branch needed for Wheezing or Shortness of Breath. albuterol Yes [id number] 2{puff} Inhale 2 Univers 90 3-18 Puffs ity of mcg/actuati 00:00: every 6 [place] on inhaler 00 (six) Medical hours as Branch needed for Wheezing or Shortness of Breath. albuterol Yes [id number] 2{puff} Inhale 2 Univers 90 3-18 Puffs ity of mcg/actuati 00:00: every 6 [place] on inhaler 00 (six) Medical hours as Branch needed for Wheezing or Shortness of Breath. albuterol Yes [id number] 2{puff} Inhale 2 Univers 90 3-18 Puffs ity of mcg/actuati 00:00: every 6 [place] on inhaler 00 (six) Medical hours as Branch needed for Wheezing or Shortness of Breath. albuterol Yes [id number] 2{puff} Inhale 2 Univers 90 3-18 Puffs ity of mcg/actuati 00:00: every 6 [place] on inhaler 00 (six) Medical hours as Branch needed for Wheezing or Shortness of Breath. albuterol 2022- No [id number] 2{puff} Inhale 2 Univers 90 3-18 05-03 Puffs ity of mcg/actuati 00:00: 00:00 every 6 [place] on inhaler 00 :00 (six) Medical hours as Branch needed for Wheezing or Shortness of Breath. tiotropium No [id number] 18ug Inhale 1 Univers 18 mcg 3-18 04-18 capsule in ity of inhalation 00:00: 04:59 the [place] 00 :00 morning Medical for 30 Branch days. tiotropium 2022- No [id number] 18ug Inhale 1 Univers 18 mcg 3-18 04-18 capsule in ity of inhalation 00:00: 04:59 the [place] 00 :00 morning Medical for 30 Branch days. tiotropium 2022- No [id number] 18ug Inhale 1 Univers 18 mcg 3-18 04-18 capsule in ity of inhalation 00:00: 04:59 the [place] 00 :00 morning Medical for 30 Branch days. tiotropium 2022- No [id number] 18ug Inhale 1 Univers 18 mcg 3-18 04-18 capsule in ity of inhalation 00:00: 04:59 the [place] 00 :00 morning Medical for 30 Branch days. tiotropium 2022- No [id number] 18ug Inhale 1 Univers 18 mcg 3-18 04-18 capsule in ity of inhalation 00:00: 04:59 the [place] 00 :00 morning Medical for 30 Branch days. tiotropium 2022- No [id number] 18ug Inhale 1 Univers 18 mcg 3-18 04-18 capsule in ity of inhalation 00:00: 04:59 the [place] 00 :00 morning Medical for 30 Branch days. tiotropium 2022-0 2022- No [id number] 18ug Inhale 1 Univers 18 mcg 3-18 04-18 capsule in ity of inhalation 00:00: 04:59 the [place] 00 :00 morning Medical for 30 Branch days. tiotropium 2022- No [id number] 18ug Inhale 1 Univers 18 mcg 3-18 04-18 capsule in ity of inhalation 00:00: 04:59 the [place] 00 :00 morning Medical for 30 Branch days. doxycycline 2022-2022- No [id number] 100mg Take 1 Univers hyclate 100 3-18 03-24 capsule by i ty of mg capsule 00:00: 04:59 mouth [place] 00 :00 every 12 [facility] Branch hours for 5 days. predniSONE 2022- No [id number] 40mg Take 2 Univers 20 mg 3-18 03-24 tablets by ity of tablet 00:00: 04:59 mouth in [place] 00 :[address] [facility] Branch for 5 days. doxycycline 2022- No [id number] 100mg Take 1 Univers hyclate 100 3-18 03-24 capsule by i ty of mg capsule 00:00: 04:59 mouth [place] 00 :00 every 12 Medical (twelve) Branch hours for 5 days. predniSONE 2022- No [id number] 40mg Take 2 Univers 20 mg 3-18 03-24 tablets by ity of tablet 00:00: 04:59 mouth in [place] 00 :[address] [facility] Branch for 5 days. rivaroxaban Yes 15mg 15 mg, Univ ers (XARELTO) 17 Oral, ity of tablet 15 17:15: DAILY, [place] mg 00 First dose Medical (after Branch last modificati on) on Tue12/03/22 at 1215, Until Discontinu ed, Routine enoxaparin 2022- No 40mg 40 mg, Univ ers (LOVENOX) 12-02-17 Subcutaneo ity of injection 22:00: 16:06 us, DAILY, [place] 40 mg 00 :59 First dose Medical on [facility] Branch 12/02/22 at 1700, Until Discontinu ed, Routine methylPREDN Yes 40mg 40 mg, Univ ers ISolone sod 16 Intravenou it y of succ 19:00: s, Q8H, [place] (SOLU-MEDRO 00 First dose Me dical L (PF)) on [facility] Branch injection 12/02/22 at 40 mg 1400, Until Discontinu ed, 1 mL codeine-gua Yes 5mL 5 mL, Unive rs ifenesin 16 Oral, ity of (ROBITUSSIN 16:25: Q6HPRN, [place] AC) 10-100 07 Starting Medic al mg/5 mL on [place] Branch oral 12/02/22 at solution 5 1125, mL Until Discontinu ed, Routine, Cough levalbutero 0 Yes 1.25mg 1.25 mg, Univers l (XOPENEX) 12-02 Inhalation it y of nebulizer 13:00: , Q4H, [place] solution 00 First dose Medic al 1.25 mg on [place] Branch 12/02/22 at 0800, Until Discontinu ed, Routine ipratropium 0 Yes .5mg 0.5 mg, Uni vers (ATROVENT) 12-02 Inhalation ity of 0.02 % 13:00: , Q4H, [place] nebulizer 00 First dose Medi lucho solution on [facility] Branch 0.5 mg 12/02/22 at 0800, Until Discontinu ed, Routine doxycycline 2022- No 100mg 100 mg, U nivers hyclate 12-02 03-21 Oral, Q12H ity o f (Vibramycin 11:45: 11:44 ABX, 10 [place] ) capsule 00 :00 doses, Medical 100 mg First dose Branch on [place] 12/02/22 at 0645, Last dose on Tue12/06/22 at 1845, MICHAEL
Re ason for Anti-Infec tive: Empiric Therapy for Suspected Infection< br>Empiric Therapy Site: Respirator y
Durat ion of therapy: 5 days NaCl 0.9% 2022- No 1000mL at 75 Univ ers (NS) IV 12-02 03-16 mL/hr, IV ity of infusion 11:45: 14:24 Infusion, [place] as 1,000 mL 00 :54 CONTINUOUS Medic al , Starting Branch on [place] 12/02/22 at 0645, Until Tue12/02/22 at 0924, Routine famotidine 0 Yes 20mg 20 mg, Unive rs (PEPCID AC) 12-02 Oral, ity of tablet 20 11:30: BIDPRN, [place] mg 03 Starting Medical on [place] Branch 12/02/22 at 0630, Until Discontinu ed, Routine, Indigestio n, Heartburn ondansetron 2022-0 Yes 4mg 4 mg, Slow Univers (ZOFRAN 16 IV Push, ity of (PF)) 11:30: Q6HPRN, [place] injection 4 03 Starting Medi lucho mg [...] 16 Oral, ity of (TYLENOL) 11:30: Q6HPRN, [place] tablet 650 03 Starting Medic al mg on [place] Branch 12/02/22 at 0630, Until Discontinu ed, Routine, Pain (scale 1-3) methylpredn 2022- No 125mg 125 mg, U nivers isolone sod 12-02 Intravenou i ty of succ 06:15: 05:27 s, ONCE, 1 [place] (SOLU-MEDRO 00 :00 dose, On Medi lucho [...] 00 :00 dose, On Medical 0.63 mg [facility] Branch 12/01/22 at 0815, Routine ipratropium 2022-0 2022- No .5mg 0.5 mg, Un igor (ATROVENT) 12-0115 Inhalation it y of 0.02 % 12:30: 12:38 , ONCE, 1 [place] nebulizer 00 :00 dose, On Medica l solution Wed Branch 0.5 mg 12/01/22 at 0730, MICHAEL levalbutero No 1.25mg 1.25 mg, Univers l (XOPENEX) 12-01 Inhalation i ty of nebulizer 11:15: 10:38 , ONCE, 1 [place] solution 00 :00 dose, On Medical 1.25 mg Wed Branch 12/01/22 at 0615, Routine ipratropium No .5mg 0.5 mg, Un igor (ATROVENT) 12-01 Inhalation it y of 0.02 % 10:30: 10:38 , ONCE, 1 [place] nebulizer 00 :00 dose, On Medica l solution Wed Branch 0.5 mg 12/01/22 at 0530, MICHAEL methylPREDN 2022- No 40mg 40 mg, Uni vers ISolone sod 12-01 Intravenou i ty of succ 10:30: 10:35 s, ONCE, 1 [place] (SOLU-MEDRO 00 :00 dose, On Medi lucho L (PF)) Wed Branch injection 12/01/22 at 40 mg 0530, MICHAEL Nebulizer & Yes [id number] Use as Univers Compressor 3-15 directed ity o f For Neb 00:00: Medical Branch albuterol 0 Yes [id number] 2{puff} Inhale 2 Univers 90 3-15 Puffs ity of mcg/actuati 00:00: every 4 [place] on inhaler 00 (four) Medical hours as Branch needed for Wheezing or Shortness of Breath. Nebulizer & 0 Yes [id number] Use as Univers Compressor 3-15 directed ity o f For Neb 00:00: Medical Branch albuterol 0 Yes [id number] 2{puff} Inhale 2 Univers 90 3-15 Puffs ity of mcg/actuati 00:00: every 4 [place] on inhaler 00 (four) Medical hours as Branch needed for Wheezing or Shortness of Breath. Nebulizer & 0 Yes Use as Univers Compressor 3-15 directed ity o f For Neb 00:00: Medical Branch albuterol 0 Yes [id number] 2{puff} Inhale 2 Univers 90 3-15 Puffs ity of mcg/actuati 00:00: every 4 [place] on inhaler 00 (four) Medical hours as Branch needed for Wheezing or Shortness of Breath. Nebulizer & 0 Yes [id number] Use as Univers Compressor 3-15 directed ity o f For Neb 00:00: Medical Branch Nebulizer & 2022-0 Yes [id number] Use as Univers Compressor 3-15 directed ity o f For Neb 00:00: Medical Branch Nebulizer & 2022-0 Yes [id number] Use as Univers Compressor 3-15 directed ity o f For Neb 00:00: Medical Branch Nebulizer & 0 Yes [id number] Use as Univers Compressor 3-15 directed ity o f For Neb 00:00: Medical Branch Nebulizer & 2022-0 Yes [id number] Use as Univers Compressor 3-15 directed ity o f For Neb 00:00: Medical Branch Nebulizer & 0 Yes [id number] Use as Univers Compressor 3-15 directed ity o f For Neb 00:00: Medical Branch Nebulizer & 0 Yes [id number] Use as Univers Compressor 3-15 directed ity o f For Neb 00:00: Medical Branch Nebulizer & 2022-0 Yes [id number] Use as Univers Compressor 3-15 directed ity o f For Neb 00:00: Medical Branch Nebulizer & 2022-0 Yes [id number] Use as Univers Compressor 3-15 directed ity o f For Neb 00:00: Medical Branch Nebulizer & 2022-0 Yes [id number] Use as Univers Compressor 3-15 directed ity o f For Neb 00:00: Medical Branch Nebulizer & 2022-0 Yes [id number] Use as Univers Compressor 3-15 directed ity o f For Neb 00:00: Medical Branch Nebulizer & 2022-0 Yes [id number] Use as Univers Compressor 3-15 directed ity o f For Neb 00:00: Medical Branch Nebulizer & 2022-0 Yes [id number] Use as Univers Compressor 3-15 directed ity o f For Neb 00:00: [place] Medical Branch Nebulizer & 3-0 Yes [id number] Use as Univers Compressor 3-15 directed ity o f For Neb 00:00: Medical Branch Nebulizer & 3-0 Yes [id number] Use as Univers Compressor 3-15 directed ity o f For Neb 00:00: Medical Branch Nebulizer & 3-0 Yes [id number] Use as Univers Compressor 3-15 directed ity o f For Neb 00:00: Medical Branch Nebulizer & 3-0 Yes [id number] Use as Univers Compressor 3-15 directed ity o f For Neb 00:00: Medical Branch Nebulizer & 2022-0 Yes [id number] Use as Univers Compressor 3-15 directed ity o f For Neb 00:00: Medical Branch Nebulizer & 2022-0 Yes [id number] Use as Univers Compressor 3-15 directed ity o f For Neb 00:00: Medical Branch Nebulizer & 2022-0 Yes [id number] Use as Univers Compressor 3-15 directed ity o f For Neb 00:00: Medical Branch Nebulizer & 2022-0 Yes [id number] Use as Univers Compressor 3-15 directed ity o f For Neb 00:00: Medical Branch Nebulizer & 2022-0 Yes [id number] Use as Univers Compressor 3-15 directed ity o f For Neb 00:00: Medical Branch Nebulizer & 2022-0 Yes [id number] Use as Univers Compressor 3-15 directed ity o f For Neb 00:00: Medical Branch Nebulizer & 3-0 Yes [id number] Use as Univers Compressor 3-15 directed ity o f For Neb 00:00: [place] [facility] Branch Nebulizer & 2022-0 Yes [id number] Use as Univers Compressor 3-15 directed ity o f For Neb 00:00: [place] [facility] Branch Nebulizer & 3-0 Yes [id number] Use as Univers Compressor 3-15 directed ity o f For Neb 00:00: [place] [facility] Branch Nebulizer & 2023-0 Yes [id number] Use as Univers Compressor 3-15 directed ity o f For Neb 00:00: Medical Branch Nebulizer & 2022-0 Yes [id number] Use as Univers Compressor 3-15 directed ity o f For Neb 00:00: Medical Branch Nebulizer & 2022-0 Yes [id number] Use as Univers Compressor 3-15 directed ity o f For Neb 00:00: Medical Branch Nebulizer & 2022-0 Yes [id number] Use as Univers Compressor 3-15 directed ity o f For Neb 00:00: Medical Branch Nebulizer & 2022-0 Yes [id number] Use as Univers Compressor 3-15 directed ity o f For Neb 00:00: Medical Branch Nebulizer & 2022-0 Yes [id number] Use as Univers Compressor 3-15 directed ity o f For Neb 00:00: Medical Branch Nebulizer & 2022-0 Yes [id number] Use as Univers Compressor 3-15 directed ity o f For Neb 00:00: Medical Branch Nebulizer & 2022-0 Yes [id number] Use as Univers Compressor 3-15 directed ity o f For Neb 00:00: Medical Branch Nebulizer & 2022-0 Yes [id number] Use as Univers Compressor 3-15 directed ity o f For Neb 00:00: Medical Branch Nebulizer & 2022-0 Yes [id number] Use as Univers Compressor 3-15 directed ity o f For Neb 00:00: Medical Branch Nebulizer & 2022-0 Yes [id number] Use as Univers Compressor 3-15 directed ity o f For Neb 00:00: Medical Branch Nebulizer & 2022-0 Yes [id number] Use as Univers Compressor 3-15 directed ity o f For Neb 00:00: Medical Branch Nebulizer & 2022-0 Yes [id number] Use as Univers Compressor 3-15 directed ity o f For Neb 00:00: Medical Branch Nebulizer & 2022-0 Yes [id number] Use as Univers Compressor 3-15 directed ity o f For Neb 00:00: Medical Branch albuterol 2023-0 Yes [id number] 2{puff} Inhale 2 Univers 90 3-15 Puffs ity of mcg/actuati 00:00: every 4 [place] on inhaler 00 (four) Medical hours as Branch needed for Wheezing or Shortness of Breath. predniSONE Yes [id number] 50mg Take 1 Univers 50 mg 3-15 tablet by ity of tablet 00:00: mouth in [place] 00 the Medical morning. Branch Nebulizer & Yes [id number] Use as Univers Compressor 3-15 directed ity o f For Neb 00:00: [place] [facility] 00 Medical Branch albuterol Yes [id number] 2{puff} Inhale 2 Univers 90 3-15 Puffs ity of mcg/actuati 00:00: every 4 [place] on inhaler 00 (four) Medical hours as Branch needed for Wheezing or Shortness of Breath. albuterol 2022- No [id number] 2{puff} Inhale 2 Univers 90 3-15 03-26 Puffs ity of mcg/actuati 00:00: 00:00 every 4 [place] on inhaler 00 :00 (four) Medical hours as Branch needed for Wheezing or Shortness of Breath. predniSONE 2022-2022- No [id number] 50mg Take 1 Univers 50 mg 3-15 03-18 tablet by ity of tablet 00:00: 00:00 mouth in [place] 00 :00 the Medical morning. Branch omeprazole 2022-2022- No 40mg Take 40 mg Univers 40 mg 11-28-12 by mouth ity of capsule 14:11: 00:00 daily. [place] 21 :00 Medical Branch carvediloL 2022- No 25mg Take 25 mg Univers 25 mg 11-28-12 by mouth 2 ity of tablet 14:11: 00:00 (two) [place] 21 :00 times Medical daily with Branch meals. busPIRone 2022-2022- No 30mg Take 30 mg U nivers 30 mg -08 21-12 by mouth 2 ity of tablet 14:11: 00:00 (two) [place] 21 :00 times Medical daily. Branch benazepriL 2022-2022- No 10mg Take 10 mg Univers 10 mg 11-28-12 by mouth ity of tablet 14:11: 00:00 daily. [place] 21 :00 Medical Branch hydroCHLORO 2022-0 2023- No 25mg Take 25 mg Univers thiazide 25 11-2812 by mouth ity of mg tablet 14:11: 00:00 daily. [place] 21 :00 [facility] Branch levalbutero 2022-0 Yes .63mg 0.63 mg, U nivers l (XOPENEX) 3-12 Inhalation it y of nebulizer 13:00: , TID, [place] solution 00 First dose Medic al 0.63 mg (after Branch last modificati on) on 11/28/22 at 0800, Until Discontinu ed, Routine ipratropium 2022-0 Yes .5mg 0.5 mg, Uni vers (ATROVENT) 3 Inhalation ity of 0.02 % 20:00: , TID, [place] nebulizer 00 First dose Medi lucho solution (after Branch 0.5 mg last modificati on) on [facility] 11/27/22 at 1400, Until Discontinu ed, Routine nicotine 0 Yes 1{patch 1 Patch, Un igor (NICODERM) 11-27 } Topical, ity o f 21 mg/24 hr 17:30: Administer [place] patch 1 00 over 24 Medical Patch Hours, Branch Q24H, First dose on [facility] 11/27/22 at 1130, Until Discontinu ed, Routine busPIRone 2022-0 Yes 10mg 10 mg, Univer s (BUSPAR) 3-11 Oral, TID, ity o f tablet 10 16:15: First dose [place] mg 00 on [facility] Medical 11/27/22 at Branch 1015, Until Discontinu ed, Routine aspirin 2022-0 Yes 81mg 81 mg, Univers chewable 11-27 Oral, ity of tablet 81 16:15: DAILY, [place] mg 00 First dose Medical on [facility] Branch 11/27/22 at 1015, [...] [place] mg 00 First dose Medical on [facility] Branch 11/27/22 at 0900, Until Discontinu ed, Routine omeprazole 0 Yes 40mg 40 mg, Unive rs (PRILOSEC) 11-27 Oral, ity of capsule 40 15:00: DAILY, [place] mg 00 First dose Medical on [facility] Branch 11/27/22 at 0900, Until Discontinu ed predniSONE 202- No 40mg 40 mg, Univ ers (DELTASONE) 11-2716 Oral, ity of tablet 40 15:00: 13:59 DAILY, 5 [place] mg 00 :00 doses, Medical First dose Branch on [facility] 11/27/22 at 0900, Last dose on Tue12/01/22 at 0900, Routine carvediloL 0 Yes 25mg 25 mg, Unive rs (COREG) 11-27 Oral, BID ity of tablet 25 14:00: MEALS, [place] mg 00 First dose Medical on [facility] 11/27/22 at 0800, Until Discontinu ed, Routine levalbutero 0 2022- No .31mg 0.31 mg, Univers l (XOPENEX) 11-2712 Inhalation i ty of nebulizer 14:00: 12:33 , TID, [place] solution 00 :58 First dose Medic al 0.31 mg on [facility] Branch 11/27/22 at 0800, Until Discontinu ed, Routine ipratropium 2022- No .5mg 0.5 mg, Un igor (ATROVENT) 11-27 Inhalation it y of 0.02 % 14:00: 18:48 , QID, [place] nebulizer 00 :56 First dose Medi lucho solution on [facility] Branch 0.5 mg 11/27/22 at 0800, Until Discontinu ed, Routine thiamine 0 Yes 100mg 100 mg, Unive rs (VITAMIN 11-27 Oral, ity of B1) tablet 08:30: DAILY, [place] 100 mg 00 First dose Medical (after Branch last modificati on) on [facility] 11/27/22 at 0230, Until [...] 00 :00 dose, On Medical 1.25 mg [facility] 11/18/22 Branch at 2000, Routine thiamine 3-0 2022- No [id number] 100mg Take 1 Univers 100 mg 2-24 03-27 tablet by ity of tablet 00:00: 04:59 mouth in [place] 00 :00 [facility] for 30 days. thiamine 2022-0 202- No [id number] 100mg Take 1 Univers 100 mg 2-24 -27 tablet by ity of tablet 00:00: 04:59 mouth in [place] 00 :00 [facility] for 30 days. thiamine 2023-0 2023- No [id number] 100mg Take 1 Univers 100 mg 2-24 03-27 tablet by ity of tablet 00:00: 04:59 mouth in [place] 00 :00 [facility] for 30 days. thiamine 2023-0 2023- No [id number] 100mg Take 1 Univers 100 mg 2-24 -27 tablet by ity of tablet 00:00: 04:59 mouth in [place] 00 :00 [facility] for 30 days. thiamine 2023-0 2023- No [id number] 100mg Take 1 Univers 100 mg 2-24 03-27 tablet by ity of tablet 00:00: 04:59 mouth in [place] 00 :00 the Medical [facility] Branch for 30 days. thiamine 2023-0 2022- No [id number] 100mg Take 1 Univers 100 mg 2-24 03-12 tablet by ity of tablet 00:00: 00:00 mouth in [place] 00 :00 the [facility] for 30 days. thiamine 3-0 Yes 100mg 100 mg, Unive rs (VITAMIN 2-23 Oral, ity of B1) tablet 15:00: DAILY, [place] 100 mg 00 First dose Medical on [facility] Branch 11/11/22 at 0900, Until Discontinu ed, Routine omeprazole 2022-0 Yes 40mg Take 40 mg U nivers 40 mg 2-23 by mouth ity of capsule 13:41: daily. [address] carvediloL 2022-0 Yes 25mg Take 25 mg U nivers 25 mg 2-23 by mouth 2 ity of tablet 13:41: (two) [place] [address] times Medical daily with Branch meals. busPIRone 3-0 Yes 30mg Take 30 mg Un igor 30 mg 2-23 by mouth 2 ity of tablet 13:41: (two) [place] [address] times Medical daily. Branch benazepriL 2022-0 Yes 10mg Take 10 mg U nivers 10 mg 2-23 by mouth ity of tablet 13:41: daily. [address] hydroCHLORO 3-0 Yes 25mg Take 25 mg Univers thiazide 25 2-23 by mouth ity of mg tablet 13:41: daily. [address] omeprazole 3-0 Yes 40mg Take 40 mg U nivers 40 mg 2-23 by mouth ity of capsule 13:41: daily. [address] carvediloL 3-0 Yes 25mg Take 25 mg U nivers 25 mg 2-23 by mouth 2 ity of tablet 13:41: (two) [place] [address] times Medical daily with Branch meals. busPIRone 2023-0 Yes 30mg Take 30 mg Un [place] 30 mg 2-23 by mouth 2 ity of tablet 13:41: (two) [place] [address] times Medical daily. Branch benazepriL 3-0 Yes 10mg Take 10 mg U nivers 10 mg 2-23 by mouth ity of tablet 13:41: daily. [address] hydroCHLORO 2023-0 Yes 25mg Take 25 mg Univers thiazide 25 2-23 by mouth ity of mg tablet 13:41: daily. [address] omeprazole 2023-0 Yes 40mg Take 40 mg U nivers 40 mg 2-23 by mouth ity of capsule 13:41: daily. [address] carvediloL 3-0 Yes 25mg Take 25 mg U nivers 25 mg 2-23 by mouth 2 ity of tablet 13:41: (two) [place] [address] times Medical daily with Branch meals. busPIRone 2023-0 Yes 30mg Take 30 mg Un [place] 30 mg 2-23 by mouth 2 ity of tablet 13:41: (two) [place] [address] times Medical daily. Branch benazepriL 3-0 Yes 10mg Take 10 mg U nivers 10 mg 2-23 by mouth ity of tablet 13:41: daily. [address] hydroCHLORO 3-0 Yes 25mg Take 25 mg Univers thiazide 25 2-23 by mouth ity of mg tablet 13:41: daily. [address] omeprazole 3-0 Yes 40mg Take 40 mg U nivers 40 mg 2-23 by mouth ity of capsule 13:41: daily. [address] carvediloL 3-0 Yes 25mg Take 25 mg U nivers 25 mg 2-23 by mouth 2 ity of tablet 13:41: (two) [address] Medical daily with Branch meals. busPIRone 3-0 Yes 30mg Take 30 mg Un igor 30 mg 2-23 by mouth 2 ity of tablet 13:41: (two) [place] [address] times Medical daily. Branch benazepriL 3-0 Yes 10mg Take 10 mg U nivers 10 mg 2-23 by mouth ity of tablet 13:41: daily. [address] hydroCHLORO 2023-0 Yes 25mg Take 25 mg Univers thiazide 25 2-23 by mouth ity of mg tablet 13:41: daily. [address] omeprazole 2023-0 Yes 40mg Take 40 mg U nivers 40 mg 2-23 by mouth ity of capsule 13:41: daily. [address] carvediloL 2023-0 Yes 25mg Take 25 mg U nivers 25 mg 2-23 by mouth 2 ity of tablet 13:41: (two) [place] [address] times Medical daily with Branch meals. busPIRone 0 Yes 30mg Take 30 mg Un ig[facility] 30 mg 2-23 by mouth 2 ity of tablet 13:41: (two) [place] [address] times Medical daily. Branch benazepriL 0 Yes 10mg Take 10 mg U nivers 10 mg 2-23 by mouth ity of tablet 13:41: daily. [address] Branch hydroCHLORO 0 Yes 25mg Take 25 mg Univers thiazide 25 2-23 by mouth ity of mg tablet 13:41: daily. [address] foLIC acid 2022- No 1mg 1 mg, Unive rs (FOLATE) 2-11-11 Oral, ity of tablet 1 mg 00:15: 00:26 ONCE, 1 [place] 00 :00 dose, On Medical Wed Branch 11/10/22 at 1815, Routine benzocaine- 0 Yes [id number] 1{lozen Take 1 Univers menthoL 2-23 ge} Lozenge by ity of lozenge 00:00: mouth [place] 00 every 4 Medical (four) Branch hours as needed for Sore throat. budesonide- 0 Yes [id number] 2{puff} Inhale 2 Univers formoteroL 2-23 Puffs in ity o f 80-4.5 00:00: the [place] mcg/actuati 00 morning Medic al on inhaler and 2 Branch Puffs in the evening. benzocaine- 2022-0 Yes [id number] 1{lozen Take 1 Univers menthoL 2-23 ge} Lozenge by ity of lozenge 00:00: mouth [place] 00 every 4 Medical (four) Branch hours as needed for Sore throat. budesonide- 2022-0 Yes [id number] 2{puff} Inhale 2 Univers formoteroL 2-23 Puffs in ity o f 80-4.5 00:00: the [place] mcg/actuati 00 morning Medic al on inhaler and 2 Branch Puffs in the evening. benzocaine- 2022-0 Yes [id number] 1{lozen Take 1 Univers menthoL 2-23 ge} Lozenge by ity of lozenge 00:00: mouth [place] 00 every 4 Medical (four) Branch hours as needed for Sore throat. budesonide- Yes [id number] 2{puff} Inhale 2 Univers formoteroL 2-23 Puffs in ity o f 80-4.5 00:00: the [place] mcg/actuati 00 morning Medic al on inhaler and 2 Branch Puffs in the evening. benzocaine- 0 Yes [id number] 1{lozen Take 1 Univers menthoL 2-23 ge} Lozenge by ity of lozenge 00:00: mouth [place] 00 every 4 Medical (four) Branch hours as needed for Sore throat. budesonide- Yes [id number] 2{puff} Inhale 2 Univers formoteroL 2-23 Puffs in ity o f 80-4.5 00:00: the [place] mcg/actuati 00 morning Medic al on inhaler and 2 Branch Puffs in the evening. benzocaine- Yes [id number] 1{lozen Take 1 Univers menthoL 2-23 ge} Lozenge by ity of lozenge 00:00: mouth [place] 00 every 4 Medical (four) Branch hours as needed for Sore throat. budesonide- Yes [id number] 2{puff} Inhale 2 Univers formoteroL 2-23 Puffs in ity o f 80-4.5 00:00: the [place] mcg/actuati 00 morning Medic al on inhaler and 2 Branch Puffs in the evening. benzocaine- 2022- No [id number] 1{lozen Take 1 Univers menthoL 2-23 03-12 ge} Lozenge by ity o f lozenge 00:00: 00:00 mouth [place] 00 :00 every 4 Medical (four) Branch hours as needed for Sore throat. budesonide- 0 2022- No [id number] 2{puff} Inhale 2 Univers formoteroL 2-23 03-12 Puffs in ity of 80-4.5 00:00: 00:00 the [place] mcg/actuati 00 :00 morning Medic al on inhaler and 2 Branch Puffs in the evening. sodium 2022-0 2022- No [id number] 1g Take 1 Uni vers chloride 1 11-11 03-06 tablet by ity of gram tablet 00:00: 05:59 mouth in [place] 00 :00 the Medical morning Branch and 1 tablet at noon and 1 tablet in the evening. Take with meals. Do all this for 10 days. sodium 2022-0 2022- No [id number] 1g Take 1 Uni vers chloride 1 11-11-06 tablet by ity of gram tablet 00:00: 05:59 mouth in [place] 00 :00 the [facility] morning Branch and 1 tablet at noon and 1 tablet in the evening. Take with meals. Do all this for 10 days. sodium 3-0 2022- No [id number] 1g Take 1 Uni vers chloride 1 11-11 03-06 tablet by ity of gram tablet 00:00: 05:59 mouth in [place] 00 :00 the [facility] morning Branch and 1 tablet at noon and 1 tablet in the evening. Take with meals. Do all this for 10 days. sodium 2022-0 2022- No [id number] 1g Take 1 Uni vers chloride 1 11-11-06 tablet by ity of gram tablet 00:00: 05:59 mouth in [place] 00 :00 the [facility] morning Branch and 1 tablet at noon and 1 tablet in the evening. Take with meals. Do all this for 10 days. levoFLOXaci 2022-0 2022- No [id number] 750mg Take 1 Univers n 750 mg 11-11- tablet by ity o f tablet 00:00: 05:59 mouth [place] 00 :00 every 24 Medical ([facility]) hours for 5 days. levoFLOXaci 2022-0 2022- No [id number] 750mg Take 1 Univers n 750 mg 11-11 03- tablet by ity o f tablet 00:00: 05:59 mouth [place] 00 :00 every 24 Medical ([facility] ur) hours for 5 days. predniSONE 2023-0 2022- No [id number] 40mg Take 2 Univers 20 mg 2-23 02-27 tablets by ity of tablet 00:00: 05:59 mouth in [place] 00 :00 the [facility] for 3 days. predniSONE 2023-0 2022- No [id number] 40mg Take 2 Univers 20 mg 2-23 [...] ge} Oral, ity of (CEPACOL 20:49: Q4HPRN, [place] SORE THROAT 25 Starting Medi lucho (JACINTO-MEN)) [...] ty of succ 15:00: 14:59 s, DAILY, [place] (SOLU-MEDRO 00 :00 4 doses, Medi lucho [...] mg 00 First dose Medical on Tue [place] 11/09/22 at 1700, Until Discontinu ed, Routine ipratropium 2022-0 Yes .5mg 0.5 mg, Uni vers (ATROVENT) 2-21 Inhalation ity of 0.02 % 22:00: , Q4H, [place] nebulizer 00 First dose Medi lucho solution on Tue 0.5 mg 11/09/22 at 1600, Until Discontinu ed, Routine albuterol 2022-0 Yes 2.5mg 2.5 mg, Univ ers (PROVENTIL) 2-21 Inhalation it y of 2.5 mg /3 22:00: , Q4H, [place] mL (0.083 00 First dose Medi lucho %) on [facility] Branch nebulizer 11/09/22 at solution 1600, 2.5 mg Until Discontinu ed, Routine NaCl 0.9% 2022- No 500mL at 999 Univ ers (NS) bolus 11-09 mL/hr, 500 it y of infusion 20:15: 21:30 mL, IV [place] 500 mL 00 :21 Infusion, Medical ONCE, 1 Branch dose, On [facility] 11/09/22 at 1415, STAT ondansetron Yes 4mg 4 mg, Slow Univers (ZOFRAN 11-09 IV Push, ity of (PF)) 20:04: Q6HPRN, [place] injection 4 17 Starting Medi lucho mg on [facility] 11/09/22 at 1404, Until Discontinu ed, Routine, Nausea and Vomiting (N/V) acetaminoph Yes 650mg 650 mg, Un igor en 11-09 Oral, ity of (TYLENOL) 20:04: Q6HPRN, [place] tablet 650 07 Starting Medic al mg on [facility] 11/09/22 at 1404, Until Discontinu ed, Routine, Pain (scale 1-3), Temp > 38 C albuterol 2022- No 5mg 5 mg, Univer s (PROVENTIL) 11-09 Inhalation i ty of 2.5 mg /3 14:00: 14:05 , ONCE, 1 [place] mL (0.083 00 :00 dose, On Medica l %) [facility] nebulizer 11/09/22 at solution 5 0800, STAT mg albuterol 2022- No 10mg 10 mg, Unive rs (PROVENTIL) 11-09 Inhalation i ty of 2.5 mg /3 11:00: 11:04 , ONCE, 1 [place] mL (0.083 00 :00 dose, On Medica l %) [facility] nebulizer 11/09/22 at solution 10 0500, [...] 00 :00 dose, On Medica l %) [facility] Branch nebulizer 11/09/22 at solution 0145, STAT 2.5 mg cephALEXin 1-0 Yes [id number] 500mg Take 1 Univers (KEFLEX) 05-22 capsule by ity o f 500 mg 00:00: mouth 4 [place] capsule 00 (four) Medical times Branch daily. cephALEXin 2020- Yes [id number] 500mg Take 1 Univers (KEFLEX) 05-22 capsule by ity o f 500 mg 00:00: mouth 4 [place] capsule 00 (four) Medical times [place] daily. cephALEXin 2022- No [id number] 500mg Take 1 Univers (KEFLEX) -11 18- capsule by ity of 500 mg 00:00: 00:00 mouth 4 [place] capsule 00 :00 (four) Medical times [place] daily. cefTRIAXone 2020- No 1000mg 1,000 mg, Univers (ROCEPHIN) 12-12- IV ity of 1,000 mg in 19:00: 18:23 Piggyback, [place] NaCl 0.9% 00 :00 ONCE, 1 Medical (NS) 50 mL dose, Fri Bran ch MINI-BAG 12/12/20 at 1400, 50 mL
Reas on for Anti-Infec tive: Empiric Therapy for Suspected Infection< br>Empiric Therapy Site: Urine
D uration of therapy: 72 hours carvediloL 2020-0 Yes 25mg Take 25 mg U nivers 25 mg 3-26 by mouth 2 ity of tablet 18:38: (two) [place] [address] times Medical daily with Branch meals. busPIRone 2020-0 Yes 30mg Take 30 mg Un igor 30 mg 3-26 by mouth 2 ity of tablet 18:38: (two) [place] [address] times Medical daily. Branch benazepriL 2020-0 Yes 10mg Take 10 mg U nivers 10 mg 3-26 by mouth ity of tablet 18:38: daily. [address] hydroCHLORO 2020-0 Yes 25mg Take 25 mg Univers thiazide 25 3-26 by mouth ity of mg tablet 18:38: daily. [address] carvediloL 2020-0 Yes 25mg Take 25 mg U nivers 25 mg 3-26 by mouth 2 ity of tablet 18:38: (two) [place] [address] times Medical daily with Branch meals. busPIRone 2021-0 Yes 30mg Take 30 mg Un ig[place] 30 mg 3-26 by mouth 2 ity of tablet 18:38: (two) [place] [address] times Medical daily. Branch benazepriL 2020-0 Yes 10mg Take 10 mg U nivers 10 mg 3-26 by mouth ity of tablet 18:38: daily. [address] hydroCHLORO 2021-0 Yes 25mg Take 25 mg Univers thiazide 25 3-26 by mouth ity of mg tablet 18:38: daily. [address] carvediloL 2021-0 Yes 25mg Take 25 [...] mouth ity of tablet 18:38: daily. [address] hydroCHLORO 2021-0 Yes 25mg Take 25 mg Univers thiazide 25 3-26 by mouth ity of mg tablet 18:38: daily. [address] carvediloL 2021-0 Yes 25mg Take 25 mg U nivers 25 mg 3-26 by mouth 2 ity of tablet 18:38: (two) [place] 04 times Medical daily with Branch meals. busPIRone 2021-0 Yes 30mg Take 30 mg Un igor 30 mg 3-26 by mouth 2 ity of tablet 18:38: (two) [place] 04 times Medical daily. Branch benazepriL 2021-0 Yes 10mg Take 10 mg U nivers 10 mg 3-26 by mouth ity of tablet 18:38: daily. [address] hydroCHLORO 2021-0 Yes 25mg Take 25 mg Univers thiazide 25 3-26 by mouth ity of mg tablet 18:38: daily. [address] carvediloL 2021-0 Yes 25mg Take 25 mg U nivers 25 mg 3-26 by mouth 2 ity of tablet 18:38: (two) [place] [address] times Medical daily with Branch meals. busPIRone 2021-0 Yes 30mg Take 30 mg Un igor 30 mg 3-26 by mouth 2 ity of tablet 18:38: (two) [place] 04 times Medical daily. Branch benazepriL 2021-0 Yes 10mg Take 10 mg U nivers 10 mg 3-26 by mouth ity of tablet 18:38: daily. [address] hydroCHLORO 2021-0 Yes 25mg Take 25 mg Univers thiazide 25 3-26 by mouth ity of mg tablet 18:38: daily. [address] carvediloL 2021-0 Yes 25mg Take 25 [...] mouth ity of tablet 18:38: daily. [address] hydroCHLORO 1-0 Yes 25mg Take 25 mg Univers thiazide 25 3-26 by mouth ity of mg tablet 18:38: daily. [address] carvediloL 1-0 Yes 25mg Take 25 mg U nivers 25 mg 3-26 by mouth 2 ity of tablet 18:38: (two) [place] [address] times Medical daily with Branch meals. busPIRone 2021-0 Yes 30mg Take 30 mg Un igor 30 mg 3-26 by mouth 2 ity of tablet 18:38: (two) [place] 04 times Medical daily. Branch benazepriL 2021-0 Yes 10mg Take 10 mg U nivers 10 mg 3-26 by mouth ity of tablet 18:38: daily. [address] hydroCHLORO 1-0 Yes 25mg Take 25 mg Univers thiazide 25 3-26 by mouth ity of mg tablet 18:38: daily. [address] carvediloL 2021-0 Yes 25mg Take 25 mg U nivers 25 mg 3-26 by mouth 2 ity of tablet 18:38: (two) [place] [address] times Medical daily with Branch meals. busPIRone 2021-0 Yes 30mg Take 30 mg Un ig[place] 30 mg 3-26 by mouth 2 ity of tablet 18:38: (two) [place] 04 times Medical daily. Branch benazepriL 2021-0 Yes 10mg Take 10 mg U nivers 10 mg 3-26 by mouth ity of tablet 18:38: daily. [address] hydroCHLORO 2021-0 Yes 25mg Take 25 mg Univers thiazide 25 3-26 by mouth ity of mg tablet 18:38: daily. [address] carvediloL 2021-0 Yes 25mg Take 25 [...] mouth ity of tablet 18:38: daily. [address] hydroCHLORO 1-0 Yes 25mg Take 25 mg Univers thiazide 25 3-26 by mouth ity of mg tablet 18:38: daily. [address] carvediloL 1-0 Yes 25mg Take 25 mg U nivers 25 mg 3-26 by mouth 2 ity of tablet 18:38: (two) [place] [address] times Medical daily with Branch meals. busPIRone 2021-0 Yes 30mg Take 30 mg Un igor 30 mg 3-26 by mouth 2 ity of tablet 18:38: (two) [place] 04 times Medical daily. Branch benazepriL 1-0 Yes 10mg Take 10 mg U nivers 10 mg 3-26 by mouth ity of tablet 18:38: daily. [address] hydroCHLORO 1-0 Yes 25mg Take 25 mg Univers thiazide 25 3-26 by mouth ity of mg tablet 18:38: daily. [address] carvediloL 2021-0 Yes 25mg Take 25 mg U nivers 25 mg 3-26 by mouth 2 ity of tablet 18:38: (two) [place] [address] times Medical daily with Branch meals. busPIRone 2021-0 Yes 30mg Take 30 mg Un igor 30 mg 3-26 by mouth 2 ity of tablet 18:38: (two) [place] 04 times Medical daily. Branch benazepriL 2021-0 Yes 10mg Take 10 mg U nivers 10 mg 3-26 by mouth ity of tablet 18:38: daily. [address] hydroCHLORO 2021-0 Yes 25mg Take 25 mg Univers thiazide 25 3-26 by mouth ity of mg tablet 18:38: daily. [address] carvediloL 2021-0 Yes 25mg Take 25 [...] mouth ity of tablet 18:38: daily. [address] hydroCHLORO 1-0 Yes 25mg Take 25 mg Univers thiazide 25 3-26 by mouth ity of mg tablet 18:38: daily. [address] carvediloL 2021-0 Yes 25mg Take 25 mg U nivers 25 mg 3-26 by mouth 2 ity of tablet 18:38: (two) [place] [address] times Medical daily with Branch meals. busPIRone 2021-0 Yes 30mg Take 30 mg Un igor 30 mg 3-26 by mouth 2 ity of tablet 18:38: (two) [place] 04 times Medical daily. Branch benazepriL 1-0 Yes 10mg Take 10 mg U nivers 10 mg 3-26 by mouth ity of tablet 18:38: daily. [address] hydroCHLORO 1-0 Yes 25mg Take 25 mg Univers thiazide 25 3-26 by mouth ity of mg tablet 18:38: daily. [address] carvediloL 2021-0 Yes 25mg Take 25 mg U nivers 25 mg 3-26 by mouth 2 ity of tablet 18:38: (two) [place] [address] times Medical daily with Branch meals. busPIRone 2021-0 Yes 30mg Take 30 mg Un igor 30 mg 3-26 by mouth 2 ity of tablet 18:38: (two) [place] 04 times Medical daily. Branch benazepriL 2021-0 Yes 10mg Take 10 mg U nivers 10 mg 3-26 by mouth ity of tablet 18:38: daily. [address] hydroCHLORO 2021-0 Yes 25mg Take 25 mg Univers thiazide 25 3-26 by mouth ity of mg tablet 18:38: daily. [address] carvediloL Yes 25mg Take 25 mg U nivers 25 mg - by mouth 2 ity of tablet 18:38: (two) [address] daily with Branch meals. busPIRone Yes 30mg Take 30 mg Un igor 30 mg - by mouth 2 ity of tablet 18:38: (two) [place] [address] times [facility] daily. Branch benazepriL Yes 10mg Take 10 mg U nivers 10 mg - by mouth ity of tablet 18:38: daily. [address] hydroCHLORO Yes 25mg Take 25 mg Univers thiazide 25 - by mouth ity of mg tablet 18:38: daily. [address] iohexol 2020- No [id number] 120mL 120 mL, Univers (OMNIPAQUE 12-12 Intravenou it y of 350 17:30: 17:21 s, ONCE, 1 [place] BULK-150 00 :00 dose, Fri Medica l mL) 12/12/20 at [place] injection 1230, 120 mL Routine aspirin 81 2020- No 81mg Take 81 mg Univers mg EC 12-12 by mouth ity of tablet 16:57: 00:00 daily. [place] 40 :00 [facility] Branch varenicline 2020- No 1mg Take 1 mg Univers (CHANTIX) 1 12-12 by mouth 2 i ty of mg tablet 16:57: 00:00 (two) [place] 18 :00 times [facility] daily. Branch predniSONE 2020- No 20mg Take 20 mg Univers 20 mg 12-12 by mouth ity of tablet 16:57: 00:00 daily. [place] 12 :00 [facility] Branch fluticasone 2020- No 1{puff} Inhale 1 Univers -umeclidin- 12-12 Puff ity of vilanter 16:56: 00:00 daily. [place] (TRELEGY 46 :00 Medical ELLIPTA) [place] 100-62.5-25 mcg DsDv cefpodoxime Yes [id number] 100mg Take 1 Univers 100 mg 12-12 tablet by ity of tablet 00:00: mouth 2 [place] 00 (two) Medical times Branch daily. cefpodoxime 2021-0 Yes [id number] 100mg Take 1 Univers 100 mg 3-26 tablet by ity of tablet 00:00: mouth [place] (two) Medical times Branch daily. cefpodoxime 2021-0 Yes [id number] 100mg Take 1 Univers 100 mg 3-26 tablet by ity of tablet 00:00: mouth (two) Medical times Branch daily. cefpodoxime 2021-0 Yes [id number] 100mg Take 1 Univers 100 mg 3-26 tablet by ity of tablet 00:00: mouth [place] (two) Medical times Branch daily. cefpodoxime 2021-0 Yes [id number] 100mg Take 1 Univers 100 mg 3-26 tablet by ity of tablet 00:00: mouth [place] (two) Medical times Branch daily. cefpodoxime 2021-0 Yes [id number] 100mg Take 1 Univers 100 mg 3-26 tablet by ity of tablet 00:00: mouth [place] (two) Medical times Branch daily. cefpodoxime 2021-0 Yes [id number] 100mg Take 1 Univers 100 mg 3-26 tablet by ity of tablet 00:00: mouth [place] (two) Medical times Branch daily. cefpodoxime 2021-0 Yes [id number] 100mg Take 1 Univers 100 mg 3-26 tablet by ity of tablet 00:00: mouth [place] (two) Medical times Branch daily. cefpodoxime 2021-0 Yes [id number] 100mg Take 1 Univers 100 mg 3-26 tablet by ity of tablet 00:00: mouth [place] (two) Medical times Branch daily. cefpodoxime 2021-0 Yes [id number] 100mg Take 1 Univers 100 mg 3-26 tablet by ity of tablet 00:00: mouth [place] (two) Medical times Branch daily. cefpodoxime 2021-0 Yes [id number] 100mg Take 1 Univers 100 mg 3-26 tablet by ity of tablet 00:00: mouth [place] (two) Medical times Branch daily. cefpodoxime 2021-0 Yes [id number] 100mg Take 1 Univers 100 mg 3-26 tablet by ity of tablet 00:00: mouth [place] (two) Medical times Branch daily. cefpodoxime 2021-0 Yes [id number] 100mg Take 1 Univers 100 mg 3-26 tablet by ity of tablet 00:00: mouth 2 [place] 00 (two) Medical times Branch daily. cefpodoxime 2020-0 Yes [id number] 100mg Take 1 Univers 100 mg 3-26 tablet by ity of tablet 00:00: mouth 2 [place] 00 ([facility]) Medical times Branch daily. cefpodoxime 2020-0 Yes [id number] 100mg Take 1 Univers 100 mg 3-26 tablet by ity of tablet 00:00: mouth 2 [place] 00 (two) Medical times Branch daily. cefpodoxime 2020-0 3- No [id number] 100mg Take 1 Univers 100 mg 3-26 - tablet by ity of tablet 00:00: 00:00 mouth 2 [place] 00 :00 ([facility]) Medical times Branch daily. cefpodoxime 2020-0 2021- No [id number] 100mg Take 1 Univers 100 mg 3-26 - tablet by ity of tablet 00:00: 00:00 mouth 2 [place] 00 :00 ([facility]) Medical times [place] daily for 7 days. XARELTO 15 2020-0 Yes Univers mg tablet 1-28 ity of 00:00: [place] Medical Branch XARELTO 15 2020-0 Yes Univers mg tablet 1-28 ity of 00:00: [place] [facility] Branch XARELTO 15 2020-0 Yes Univers mg tablet -28 ity of 00:00: [place] [facility] XARELTO 15 2020-0 Yes Univers mg tablet -28 ity of 00:00: [place] [facility] XARELTO 15 2020-0 Yes Univers mg tablet -28 ity of 00:00: [place] [facility] XARELTO 15 2020-0 Yes Univers mg tablet -28 ity of 00:00: [place] [facility] XARELTO 15 2020-0 Yes Univers mg tablet 1-28 ity of 00:00: [place] [facility] XARELTO 15 2020-0 Yes Univers mg tablet 1-28 ity of 00:00: [place] [facility] XARELTO 15 2020-0 Yes Univers mg tablet 1-28 ity of 00:00: [place] [facility] Branch XARELTO 15 2020-0 Yes [facility] mg tablet 1-28 ity of 00:00: [place] [facility] XARELTO 15 2020-0 Yes Univers mg tablet 10-16 ity of 00:00: [place] [facility] XARELTO 15 2020-0 Yes Univers mg tablet 10-16 ity of 00:00: [place] [facility] XARELTO 15 2020-0 Yes [facility] mg tablet 10-16 ity of 00:00: [place] [facility] XARELTO 15 2020-0 Yes Univers mg tablet 10-16 ity of 00:00: [place] [facility] XARELTO 15 2020-0 Yes Univers mg tablet 10-16 ity of 00:00: [place] [address] [facility] Branch XARELTO 15 2020-0 Yes Univers mg tablet 10-16 ity of 00:00: [place] [address] Medical Branch XARELTO 15 2020-0 Yes Univers mg tablet 10-16 ity of 00:00: [place] [address] Medical Branch XARELTO 15 2020-0 Yes Univers mg tablet 10-16 ity of 00:00: [place] [address] Medical Branch XARELTO 15 2020-0 Yes Univers mg tablet 10-16 ity of 00:00: [place] [address] Medical Branch XARELTO 15 2020-0 Yes Univers mg tablet 10-16 ity of 00:00: [place] [address] Medical Branch XARELTO 15 2020-0 Yes Univers mg tablet 10-16 ity of 00:00: [place] [address] Medical Branch XARELTO 15 2020-0 Yes Univers mg tablet 10-16 ity of 00:00: [address] Branch XARELTO 15 2020-0 Yes Univers mg tablet 10-16 ity of 00:00: [address] Branch XARELTO 15 2020-0 3- No Univer s mg tablet 10-16-12 ity of 00:00: 00:00 [place] 00 :00 [facility] Branch omeprazole 2018- Yes 40mg Take 40 mg U nivers 40 mg 2-10 by mouth ity of capsule 00:11: daily. [address] omeprazole 2018-09 Yes 40mg Take 40 mg U nivers 40 mg 2-10 by mouth ity of capsule 00:11: daily. [address] varenicline 2018-09 Yes 1mg Take 1 mg U nivers (CHANTIX) 1 2-10 by mouth 2 it y of mg tablet 00:11: (two) [address] daily. Branch predniSONE 2018-09 Yes 20mg Take 20 mg U nivers 20 mg 2-10 by mouth ity of tablet 00:11: daily. [address] omeprazole 2018-09 Yes 40mg Take 40 mg U nivers 40 mg 2-10 by mouth ity of capsule 00:11: daily. [address] fluticasone 2018-09 Yes 1{puff} Inhale 1 Univers -umeclidin- 2-10 Puff ity of vilanter 00:11: daily. [address]) Branch 100-62.5-25 mcg DsDv aspirin 81 2018-09 Yes 81mg Take 81 mg U nivers mg EC 2-10 by mouth ity of tablet 00:11: daily. [address] varenicline 2018-09 Yes 1mg Take 1 mg U nivers (CHANTIX) 1 2-10 by mouth 2 it y of mg tablet 00:11: (two) [address] daily. Branch predniSONE 2018-09 Yes 20mg Take 20 mg U nivers 20 mg 2-10 by mouth ity of tablet 00:11: daily. [address] omeprazole 2018-09 Yes 40mg Take 40 mg U nivers 40 mg 2-10 by mouth ity of capsule 00:11: daily. [address] fluticasone 2018-09 Yes 1{puff} Inhale 1 Univers -umeclidin- 2-10 Puff ity of vilanter 00:11: daily. [place] ([address]) Branch 100-62.5-25 mcg DsDv aspirin 81 2018-09 Yes 81mg Take 81 mg U nivers mg EC 2-10 by mouth ity of tablet 00:11: daily. [address] varenicline 2018-09 Yes 1mg Take 1 mg U nivers (CHANTIX) 1 2-10 by mouth 2 it y of mg tablet 00:11: (two) [place] [id number] times [facility] daily. Branch predniSONE 2018-09 Yes 20mg Take 20 mg U nivers 20 mg 2-10 by mouth ity of tablet 00:11: daily. [address] omeprazole 2018-09 Yes 40mg Take 40 mg U nivers 40 mg 2-10 by mouth ity of capsule 00:11: daily. [address] fluticasone 2018-09 Yes 1{puff} Inhale 1 Univers -umeclidin- 2-10 Puff ity of vilanter 00:11: daily. [address]) Branch 100-62.5-25 mcg DsDv aspirin 81 2018-09 Yes 81mg Take 81 mg U nivers mg EC 2-10 by mouth ity of tablet 00:11: daily. [address] varenicline 2018-09 Yes 1mg Take 1 mg U nivers (CHANTIX) 1 2-10 by mouth 2 it y of mg tablet 00:11: (two) [place] [id number] times Medical daily. Branch predniSONE 2018-09 Yes 20mg Take 20 mg U nivers 20 mg 2-10 by mouth ity of tablet 00:11: daily. [address] omeprazole 2018-09 Yes 40mg Take 40 mg U nivers 40 mg 2-10 by mouth ity of capsule 00:11: daily. [address] fluticasone 2018-09 Yes 1{puff} Inhale 1 Univers -umeclidin- 2-10 Puff ity of vilanter 00:11: daily. [place] ([address]) Branch 100-62.5-25 mcg DsDv aspirin 81 2018-09 Yes 81mg Take 81 mg U nivers mg EC 2-10 by mouth ity of tablet 00:11: daily. [address] varenicline 2018-09 Yes 1mg Take 1 mg U nivers (CHANTIX) 1 2-10 by mouth 2 it y of mg tablet 00:11: (two) [address] daily. Branch predniSONE 2018-09 Yes 20mg Take 20 mg U nivers 20 mg 2-10 by mouth ity of tablet 00:11: daily. [address] omeprazole 2018-09 Yes 40mg Take 40 mg U nivers 40 mg 2-10 by mouth ity of capsule 00:11: daily. [address] fluticasone 2018-09 Yes 1{puff} Inhale 1 Univers -umeclidin- 2-10 Puff ity of vilanter 00:11: daily. [place] ([address]) Branch 100-62.5-25 mcg DsDv aspirin 81 2018-09 Yes 81mg Take 81 mg U nivers mg EC 2-10 by mouth ity of tablet 00:11: daily. [address] varenicline 2019-1 Yes 1mg Take 1 mg U nivers (CHANTIX) 1 2-10 by mouth 2 it y of mg tablet 00:11: (two) [address] Medical daily. Branch predniSONE 2018-09 Yes 20mg Take 20 mg U nivers 20 mg 2-10 by mouth ity of tablet 00:11: daily. [address] Branch omeprazole 2018-09 Yes 40mg Take 40 mg U nivers 40 mg 2-10 by mouth ity of capsule 00:11: daily. [address] Branch fluticasone 2018- Yes 1{puff} Inhale 1 Univers -umeclidin- 2-10 Puff ity of vilanter 00:11: daily. [place] [facility]) Branch 100-62.5-25 mcg DsDv aspirin 81 2018-09 Yes 81mg Take 81 mg U nivers mg EC 2-10 by mouth ity of tablet 00:11: daily. [address] omeprazole 2018-09 Yes 40mg Take 40 mg U nivers 40 mg 2-10 by mouth ity of capsule 00:11: daily. [address] omeprazole 2018-09 Yes 40mg Take 40 mg U nivers 40 mg 2-10 by mouth ity of capsule 00:11: daily. [address] omeprazole 2018-09 Yes 40mg Take 40 mg U nivers 40 mg 2-10 by mouth ity of capsule 00:11: daily. [address] omeprazole 2018-09 Yes 40mg Take 40 mg U nivers 40 mg 2-10 by mouth ity of capsule 00:11: daily. [address] omeprazole 2018- Yes 40mg Take 40 mg U nivers 40 mg 2-10 by mouth ity of capsule 00:11: daily. [address] omeprazole 2018- Yes 40mg Take 40 mg U nivers 40 mg 2-10 by mouth ity of capsule 00:11: daily. [address] omeprazole 2018- Yes 40mg Take 40 mg U nivers 40 mg 2-10 by mouth ity of capsule 00:11: daily. [address] omeprazole 2018- Yes 40mg Take 40 mg U nivers 40 mg 2-10 by mouth ity of capsule 00:11: daily. [address] omeprazole 2018- Yes 40mg Take 40 mg U nivers 40 mg 2-10 by mouth ity of capsule 00:11: daily. [address] Branch omeprazole 2018-09 Yes 40mg Take 40 mg U nivers 40 mg 2-10 by mouth ity of capsule 00:11: daily. [address] omeprazole 2018-09 Yes 40mg Take 40 mg U nivers 40 mg 2-10 by mouth ity of capsule 00:11: daily. [address] omeprazole 2018-09 Yes 40mg Take 40 mg U nivers 40 mg 2-10 by mouth ity of capsule 00:11: daily. [address] omeprazole 2018-09 Yes 40mg Take 40 mg U nivers 40 mg 2-10 by mouth ity of capsule 00:11: daily. [address] Branch KCL 20 mEq 2018-09 Yes [id number] 40meq Take 2 Univers tablet 2-09 tablets by ity of 00:00: mouth [place] 00 daily. Medical Branch KCL 20 mEq 2018-09 Yes [id number] 40meq Take 2 Univers tablet 2-09 tablets by ity of 00:00: mouth [place] 00 daily. Medical Branch atorvastati 2018-09 Yes [id number] 20mg Take 1 Univers n 20 mg 2-09 tablet by ity of tablet 00:00: mouth at [place] 00 bedtime. Medical Branch metoprolol 2018-09 Yes [id number] 50mg Take 1 Univers succinate 2-09 tablet by ity o f XL 50 mg 24 00:00: mouth 2 [place] hr tablet 00 (two) Medical times Branch daily. furosemide 2018-09 Yes [id number] 40mg Take 1 Univers 40 mg 2-09 tablet by ity of tablet 00:00: mouth [place] 00 every Medical morning Branch and evening. KCL 20 mEq 2018-09 Yes [id number] 40meq Take 2 Univers tablet 2-09 tablets by ity of 00:00: mouth [place] 00 daily. Medical Branch atorvastati 2018-09 Yes [id number] 20mg Take 1 Univers n 20 mg 2-09 tablet by ity of tablet 00:00: mouth at [place] 00 bedtime. Medical Branch metoprolol 2018-09 Yes [id number] 50mg Take 1 Univers succinate 2-09 tablet by ity o f XL 50 mg 24 00:00: mouth 2 [place] hr tablet 00 (two) Medical times Branch daily. furosemide 2018-09 Yes [id number] 40mg Take 1 Univers 40 mg 2-09 tablet by ity of tablet 00:00: mouth [place] 00 every Medical morning Branch and evening. KCL 20 mEq 2018-09 Yes [id number] 40meq Take 2 Univers tablet 2-09 tablets by ity of 00:00: mouth [place] 00 daily. Medical Branch atorvastati 2018-09 Yes [id number] 20mg Take 1 Univers n 20 mg 2-09 tablet by ity of tablet 00:00: mouth at [place] 00 bedtime. Medical Branch metoprolol 2018-09 Yes [id number] 50mg Take 1 Univers succinate 2-09 tablet by ity o f XL 50 mg 24 00:00: mouth 2 [place] hr tablet 00 (two) Medical times Branch daily. furosemide 2018-09 Yes [id number] 40mg Take 1 Univers 40 mg 2-09 tablet by ity of tablet 00:00: mouth [place] 00 every Medical morning Branch and evening. KCL 20 mEq 2018-09 Yes [id number] 40meq Take 2 Univers tablet 2-09 tablets by ity of 00:00: mouth [place] 00 daily. Medical Branch atorvastati 2018-09 Yes [id number] 20mg Take 1 Univers n 20 mg 2-09 tablet by ity of tablet 00:00: mouth at [place] 00 bedtime. Medical Branch metoprolol 2018-09 Yes [id number] 50mg Take 1 Univers succinate 2-09 tablet by ity o f XL 50 mg 24 00:00: mouth 2 [place] hr tablet 00 (two) Medical times Branch daily. furosemide 2018-09 Yes [id number] 40mg Take 1 Univers 40 mg 2-09 tablet by ity of tablet 00:00: mouth [place] 00 every Medical morning Branch and evening. KCL 20 mEq 2018-09 Yes [id number] 40meq Take 2 Univers tablet 2-09 tablets by ity of 00:00: mouth [place] 00 daily. Medical Branch atorvastati 2018-09 Yes [id number] 20mg Take 1 Univers n 20 mg 2-09 tablet by ity of tablet 00:00: mouth at [place] 00 bedtime. Medical Branch metoprolol 2018-09 Yes [id number] 50mg Take 1 Univers succinate 2-09 tablet by ity o f XL 50 mg 24 00:00: mouth 2 [place] hr tablet 00 (two) Medical times Branch daily. furosemide 2018-09 Yes [id number] 40mg Take 1 Univers 40 mg 2-09 tablet by ity of tablet 00:00: mouth [place] 00 every Medical morning Branch and evening. KCL 20 mEq 2018-09 Yes [id number] 40meq Take 2 Univers tablet 2-09 tablets by ity of 00:00: mouth [place] 00 daily. Medical Branch atorvastati 2018-09 Yes [id number] 20mg Take 1 Univers n 20 mg 2-09 tablet by ity of tablet 00:00: mouth at [place] 00 bedtime. Medical Branch metoprolol 2018-09 Yes [id number] 50mg Take 1 Univers succinate 2-09 tablet by ity o f XL 50 mg 24 00:00: mouth 2 [place] hr tablet 00 (two) Medical times Branch daily. furosemide 2018-09 Yes [id number] 40mg Take 1 Univers 40 mg 2-09 tablet by ity of tablet 00:00: mouth [place] 00 every Medical morning Branch and evening. KCL 20 mEq 2018-09 Yes [id number] 40meq Take 2 Univers tablet 2-09 tablets by ity of 00:00: mouth [place] 00 daily. Medical Branch KCL 20 mEq 2018-09 Yes [id number] 40meq Take 2 Univers tablet 2-09 tablets by ity of 00:00: mouth [place] 00 daily. Medical Branch KCL 20 mEq 2018-09 Yes [id number] 40meq Take 2 Univers tablet 2-09 tablets by ity of 00:00: mouth [place] 00 daily. Medical Branch KCL 20 mEq 2018-09 Yes [id number] 40meq Take 2 Univers tablet 2-09 tablets by ity of 00:00: mouth [place] 00 daily. Medical Branch KCL 20 mEq 2018-09 Yes [id number] 40meq Take 2 Univers tablet 2-09 tablets by ity of 00:00: mouth [place] 00 daily. Medical Branch KCL 20 mEq 2018-09 Yes [id number] 40meq Take 2 Univers tablet 2-09 tablets by ity of 00:00: mouth [place] 00 daily. Medical Branch KCL 20 mEq 2018-09 Yes [id number] 40meq Take 2 Univers tablet 2-09 tablets by ity of 00:00: mouth [place] 00 daily. Medical Branch KCL 20 mEq 2018-09 Yes [id number] 40meq Take 2 Univers tablet 2-09 tablets by ity of 00:00: mouth [place] 00 daily. Medical Branch KCL 20 mEq 2018-09 Yes [id number] 40meq Take 2 Univers tablet 2-09 tablets by ity of 00:00: mouth [place] 00 daily. Medical Branch KCL 20 mEq 2018-09 Yes [id number] 40meq Take 2 Univers tablet 2-09 tablets by ity of 00:00: mouth [place] 00 daily. Medical Branch KCL 20 mEq 2018-09 Yes [id number] 40meq Take 2 Univers tablet 2-09 tablets by ity of 00:00: mouth [place] 00 daily. Medical Branch KCL 20 mEq 2018-09 Yes [id number] 40meq Take 2 Univers tablet 2-09 tablets by ity of 00:00: mouth [place] 00 daily. Medical Branch KCL 20 mEq 2018-09 Yes [id number] 40meq Take 2 Univers tablet 2-09 tablets by ity of 00:00: mouth [place] 00 daily. Medical Branch KCL 20 mEq 2018-09 Yes [id number] 40meq Take 2 Univers tablet 2-09 tablets by ity of 00:00: mouth [place] 00 daily. Medical Branch KCL 20 mEq 2018-09 Yes [id number] 40meq Take 2 Univers tablet 2-09 tablets by ity of 00:00: mouth [place] 00 daily. Medical Branch KCL 20 mEq 2018-09 Yes [id number] 40meq Take 2 Univers tablet 2-09 tablets by ity of 00:00: mouth [place] 00 daily. Medical Branch KCL 20 mEq 2018-09 Yes [id number] 40meq Take 2 Univers tablet 2-09 tablets by ity of 00:00: mouth [place] 00 daily. Medical Branch KCL 20 mEq 2018-09 Yes [id number] 40meq Take 2 Univers tablet 2-09 tablets by ity of 00:00: mouth [place] 00 daily. Medical Branch KCL 20 mEq 2018-09 Yes [id number] 40meq Take 2 Univers tablet 2-09 tablets by ity of 00:00: mouth [place] 00 daily. Medical Branch KCL 20 mEq 2018-09- No [id number] 40meq Take 2 Univers tablet 2-09 03-12 tablets by ity of 00:00: 00:00 mouth [place] 00 :00 daily. Medical Branch atorvastati 2018-09- No [id number] 20mg Take 1 Univers n 20 mg 2-09 03-26 tablet by ity of tablet 00:00: 00:00 mouth at [place] 00 :00 bedtime. Medical Branch metoprolol 2018-09- No [id number] 50mg Take 1 Univers succinate 10-28 tablet by ity of XL 50 mg 24 00:00: 00:00 mouth 2 [place] hr tablet 00 :00 (two) Medical times Branch daily. furosemide 2018-09- No [id number] 40mg Take 1 Univers 40 mg 10-28 [...] Until mL Discontinu ed, Routine ibuprofen Yes [id number] 600mg Take 1 U nivers 600 mg 5-31 tablet by ity of tablet 00:00: mouth [place] 00 every 8 Medical (eight) Branch hours as needed (PAIN). ibuprofen Yes [id number] 600mg Take 1 U nivers 600 mg 5-31 tablet by ity of tablet 00:00: mouth [place] 00 every 8 Medical (eight) Branch hours as needed (pain). ibuprofen 2018- No [id number] 600mg Take 1 Univers 600 mg 5-31 08-15 tablet by ity of tablet 00:00: 00:00 mouth [place] 00 :00 every 8 Medical (eight) Branch hours as needed (PAIN). ibuprofen 2018- No [id number] 600mg Take 1 Univers 600 mg 5-31 08-15 tablet by ity of tablet 00:00: 00:00 mouth [place] 00 :00 every 8 Medical (eight) Branch hours as needed (pain). magnesium Yes 400mg Take 1 Tab U nivers oxide 2-23 by mouth 3 ity of (MAG-OX 00:00: (three) [place] 400) 400 mg 00 times Medical tablet daily. Branch enalapril Yes [id number] 2.5mg Take 1 Tab Univers (VASOTEC) 2-23 [...] s tablet 00 Medical Branch furosemide Yes [id number] 40mg Take 1 Tab Univers (LASIX) 40 [...] Medical tablet daily. Branch enalapril 2019- No [id number] 2.5mg Take 1 Tab Univers (VASOTEC) 2-23 [...] 00 :00 Medical Branch furosemide 2019- No [id number] 40mg Take 1 Tab Univers (LASIX) 40 [...] by mouth ity of tablet 00:00: daily. [place] [facility] ipratropium 2013-09 Yes .5mg Inhale [...] by mouth ity of tablet 00:00: daily. [place] [facility] ipratropium 2013-09 Yes .5mg Inhale [...] by mouth ity of tablet 00:00: daily. [place] [facility] ipratropium 2013-09 Yes .5mg Inhale [...] by mouth ity of tablet 00:00: daily. [place] [facility] ipratropium 2013-09 Yes .5mg Inhale [...] by mouth ity of tablet 00:00: daily. [place] [facility] ipratropium 2013-09 Yes .5mg Inhale [...] by mouth ity of tablet 00:00: daily. [place] [facility] ipratropium 2013-09 Yes .5mg Inhale [...] by mouth ity of tablet 00:00: daily. [place] [facility] ipratropium 2013-09 Yes .5mg Inhale [...] by mouth ity of tablet 00:00: daily. [place] [facility] ipratropium 2013-09 Yes .5mg Inhale [...] by mouth ity of tablet 00:00: daily. [place] [facility] ipratropium 2013-09 Yes .5mg Inhale [...] by mouth ity of tablet 00:00: daily. [place] [facility] ipratropium 2013-09 Yes .5mg Inhale [...] by mouth ity of tablet 00:00: daily. [place] [facility] ipratropium 2013-09 Yes .5mg Inhale [...] by mouth ity of tablet 00:00: daily. [place] [facility] ipratropium 2013-09 Yes .5mg Inhale [...] by mouth ity of tablet 00:00: daily. [place] [facility] ipratropium 2013-09 Yes .5mg Inhale [...] by mouth ity of tablet 00:00: daily. [place] [facility] ipratropium 2013-09 Yes .5mg Inhale [...] by mouth ity of tablet 00:00: daily. [place] [facility] ipratropium 2013-09 Yes .5mg Inhale [...] by mouth ity of tablet 00:00: daily. [place] [facility] ipratropium 2013-09 Yes .5mg Inhale [...] by mouth ity of tablet 00:00: daily. [place] [facility] ipratropium 2013-09 Yes .5mg Inhale [...] by mouth ity of tablet 00:00: daily. [place] [facility] ipratropium 2013-09 Yes .5mg Inhale [...] by mouth ity of tablet 00:00: daily. [place] [facility] ipratropium 2013-09 Yes .5mg Inhale [...] mouth ity of tablet 00:00: 00:00 daily. [place] 00 :00 Medical Branch ipratropium 2013-09- No [...] nebulizer daily. Branch solution Immunizations Ordered Filled Date Status Comments Source Immunization Name Immunization Name Pneumococcal 20 2022-12-12 Completed Universit y of Conjugate, PCV20 00:00:00 [facility] dical (Prevnar 20) Branch Pneumococcal 20 2022-12-12 Completed Universit y of Conjugate, PCV20 00:00:00 [facility] dical (Prevnar 20) Branch Pneumococcal 20 2022-12-12 Completed Universit y of Conjugate, PCV20 00:00:00 [facility] dical (Prevnar 20) Branch Pneumococcal 20 2022-12-12 Completed Universit y of Conjugate, PCV20 00:00:00 [facility] dical (Prevnar 20) Branch Pneumococcal 20 2022-12-12 Completed Universit y of Conjugate, PCV20 00:00:00 [facility] dical (Prevnar 20) Branch Pneumococcal 20 2022-12-12 Completed Universit y of Conjugate, PCV20 00:00:00 [facility] dical (Prevnar 20) Branch Pneumococcal 20 2022-12-12 Completed Universit y of Conjugate, PCV20 00:00:00 [facility] dical (Prevnar 20) Branch Pneumococcal 20 2022-12-12 Completed Universit y of Conjugate, PCV20 00:00:00 [facility] dical (Prevnar 20) Branch Pneumococcal 20 2022-12-12 Completed Universit y of Conjugate, PCV20 00:00:00 [facility] dical (Prevnar 20) Branch Pneumococcal 20 [...] Universit y of Conjugate, PCV20 00:00:00 [place] dical (Prevnar 20) Branch Pneumococcal 20 2022-12-12 Completed Universit y of Conjugate, PCV20 00:00:00 [place] dical (Prevnar 20) Branch Pneumococcal 20 2022-12-12 [...] Universit y of Conjugate, PCV20 00:00:00 [place] [facility] dical (Prevnar 20) Branch Pneumococcal 20 2022-12-12 Completed Universit y of Conjugate, PCV20 00:00:00 [place] [facility] dical (Prevnar 20) Branch Pneumococcal 20 2022-12-12 Completed Universit y of Conjugate, PCV20 00:00:00 [place] dical (Prevnar 20) Branch Pneumococcal 20 2022-12-12 Completed Universit y of Conjugate, PCV20 00:00:00 [place] [facility] dical (Prevnar 20) Branch Pneumococcal 20 2022-12-12 Completed Universit y of Conjugate, PCV20 00:00:00 [place] [facility] dical (Prevnar 20) Branch SARS-COV-2 COVID-19 2020-11-23 [...] Unive rsity of MODERNA VACCINE 00:00:[address] [place] [facility] ical Branch SARS-COV-2 COVID-19 2020-10-26 Completed Unive rsity of MODERNA VACCINE 00:00:00 [place] [facility] ical Branch SARS-COV-2 COVID-19 2020-10-26 Completed Unive rsity of MODERNA VACCINE 00:00:00 [place] [facility] ical Branch SARS-COV-2 COVID-19 2020-10-26 Completed Unive rsity of MODERNA VACCINE 00:00:[address] [place] [facility] ical Branch SARS-COV-2 COVID-19 2020-10-26 Completed Unive rsity of MODERNA VACCINE 00:00:[address] [place] [facility] ical Branch SARS-COV-2 COVID-19 2020-10-26 Completed Unive rsity of MODERNA VACCINE 00:00:00 [place] [facility] ical Branch SARS-COV-2 COVID-19 2020-10-26 Completed Unive rsity of MODERNA VACCINE 00:00:00 [place] [facility] ical Branch SARS-COV-2 COVID-19 2020-10-26 Completed Unive rsity of MODERNA VACCINE 00:00:00 [place] [facility] ical Branch SARS-COV-2 COVID-19 2020-10-26 Completed Unive rsity of MODERNA VACCINE 00:00:[address] [place] [facility] ical Branch SARS-COV-2 COVID-19 2020-10-26 Completed Unive [...] Unive rsity of MODERNA 12+ YRS 00:00:00 [facility] ical VACCINE Branch Td 2019-02-16 Completed University of 00:00:00 [facility] Branch TD, NOS 2019-02-16 Completed University of 00:00:00 [place] [facility] TD, NOS 2019-02-16 Completed University of 00:00:00 [facility] Branch TD, NOS 2019-02-16 Completed University of 00:00:00 [place] [facility] TD, NOS 2019-02-16 Completed University of 00:00:00 [place] [facility] TD, NOS 2019-02-16 Completed University of 00:00:00 [place] [facility] Td 2019-02-16 Completed University of 00:00:00 [place] [facility] TD, NOS 2019-02-16 Completed University of 00:00:00 [place] [facility] TD, NOS 2019-02-16 Completed University of 00:00:00 [place] [facility] TD, NOS 2019-02-16 Completed University of 00:00:00 [place] [facility] TD, NOS 2019-02-16 Completed University [...] Branch Td 2019-02-16 Completed University of 00:00:00 [facility] TD, NOS 2019-02-16 Completed University of 00:00:00 [facility] TD, NOS 2019-02-16 Completed University of 00:00:00 [facility] TD, NOS 2019-02-16 Completed University of 00:00:00 [facility] Pneumococcal 2014-09-05 Completed University o f Polysaccharide, 00:00:00 [place] [facility] ical PPSV23 (PNEUMOVAX) Branch Influenza Virus 2014-09-05 Completed Universit y of Vaccine Quad IM 3+ 00:00:00 [facility] Pneumococcal 2014-09-05 Completed University o f Polysaccharide, 00:00:00 [place] Med ical PPSV23 (PNEUMOVAX) Branch Influenza Virus 2014-09-05 Completed Universit y of Vaccine Quad IM 3+ 00:00:00 [facility] Pneumococcal 2014-09-05 Completed University o f Polysaccharide, 00:00:00 [place] [facility] ical PPSV23 (PNEUMOVAX) Branch Influenza Virus 2014-09-05 Completed Universit y of Vaccine Quad IM 3+ 00:00:00 [facility] Pneumococcal 2014-09-05 Completed University o f Polysaccharide, 00:00:00 [place] [facility] ical PPSV23 (PNEUMOVAX) Branch Influenza Virus 2014-09-05 Completed Universit y of Vaccine Quad IM 3+ 00:00:00 [facility] Pneumococcal 2014-09-05 Completed University o f Polysaccharide, 00:00:00 [place] [facility] ical PPSV23 (PNEUMOVAX) Branch Influenza Virus 2014-09-05 Completed Universit y of Vaccine Quad IM 3+ 00:00:00 [facility] Pneumococcal 2014-09-05 Completed University o f Polysaccharide, 00:00:00 [place] [facility] ical PPSV23 (PNEUMOVAX) Branch Influenza Virus 2014-09-05 Completed Universit y of Vaccine Quad IM 3+ 00:00:00 [facility] Pneumococcal 2014-09-05 Completed University o f Polysaccharide, 00:00:00 [place] Med ical PPSV23 (PNEUMOVAX) Branch Influenza Virus 2014-09-05 Completed Universit y of Vaccine Quad IM 3+ 00:00:00 [facility] Pneumococcal 2014-09-05 Completed University o f Polysaccharide, 00:00:00 [place] [facility] ical PPSV23 (PNEUMOVAX) Branch Influenza Virus 2014-09-05 Completed Universit y of Vaccine Quad IM 3+ 00:00:00 [facility] Pneumococcal 2014-09-05 Completed University o f Polysaccharide, 00:00:00 [place] [facility] ical PPSV23 (PNEUMOVAX) Branch Influenza Virus 2014-09-05 Completed Universit y of Vaccine Quad IM 3+ 00:00:00 [facility] Pneumococcal 2014-09-05 Completed University o f Polysaccharide, 00:00:00 [place] Med ical PPSV23 (PNEUMOVAX) Branch Influenza Virus 2014-09-05 Completed Universit y of Vaccine Quad [facility] 3+ 00:00:00 [facility] Pneumococcal 2014-09-05 Completed University o f Polysaccharide, 00:00:00 [place] [facility] PPSV23 (PNEUMOVAX) Branch Influenza Virus 2014-09-05 Completed Universit y of Vaccine Quad IM 3+ 00:00:00 [facility] Pneumococcal 2014-09-05 Completed University o f Polysaccharide, 00:00:00 [place] [facility] PPSV23 (PNEUMOVAX) Branch Influenza Virus 2014-09-05 Completed Universit y of Vaccine Quad IM 3+ 00:00:00 [facility] Pneumococcal 2014-09-05 Completed University o f Polysaccharide, 00:00:00 [place] [facility] PPSV23 (PNEUMOVAX) Branch Influenza Virus 2014-09-05 Completed Universit y of Vaccine Quad IM 3+ 00:00:00 [facility] Influenza Virus 2014-09-05 Completed Universit y of Vaccine Quad IM 3+ 00:00:00 [facility] Pneumococcal 2014-09-05 Completed [facility] o f Polysaccharide, 00:00:00 [place] [facility] PPSV23 (PNEUMOVAX) Branch Pneumococcal 2014-09-05 Completed University o f Polysaccharide, 00:00:00 [place] [facility] PPSV23 (PNEUMOVAX) Branch Influenza Virus 2014-09-05 Completed Universit y of Vaccine Quad IM 3+ 00:00:00 [facility] Pneumococcal 2014-09-05 Completed University o f Polysaccharide, 00:00:00 [place] [facility] PPSV23 (PNEUMOVAX) Branch Influenza Virus 2014-09-05 Completed Universit y of Vaccine Quad IM 3+ 00:00:00 [facility] Pneumococcal 2014-09-05 Completed University o f Polysaccharide, 00:00:00 [place] [facility] PPSV23 (PNEUMOVAX) Branch Influenza Virus 2014-09-05 Completed Universit y of Vaccine Quad IM 3+ 00:00:00 [facility] Pneumococcal 2014-09-05 Completed [facility] o f Polysaccharide, 00:00:00 [place] [facility] PPSV23 (PNEUMOVAX) Branch Influenza Virus 2014-09-05 Completed Universit y of Vaccine Quad IM 3+ 00:00:00 [facility] Pneumococcal 2014-09-05 Completed University o f Polysaccharide, 00:00:00 [place] [facility] PPSV23 (PNEUMOVAX) Branch Influenza Virus 2014-09-05 Completed Universit y of Vaccine Quad IM 3+ 00:00:00 [facility] Pneumococcal 2014-09-05 Completed [facility] o f Polysaccharide, 00:00:00 [place] [facility] PPSV23 (PNEUMOVAX) Branch Influenza Virus 2014-09-05 Completed Universit y of Vaccine Quad IM 3+ 00:00:00 [facility] Pneumococcal 2014-09-05 Completed [facility] o f Polysaccharide, 00:00:00 [place] [facility] PPSV23 (PNEUMOVAX) Branch Influenza Virus 2014-09-05 Completed Universit y of Vaccine Quad IM 3+ 00:00:00 [facility] Pneumococcal 2014-09-05 Completed [facility] o f Polysaccharide, 00:00:00 [place] [facility] PPSV23 (PNEUMOVAX) Branch Influenza Virus 2014-09-05 Completed Universit y of Vaccine Quad IM 3+ 00:00:00 [facility] Pneumococcal 2014-09-05 Completed University o f Polysaccharide, 00:00:00 [place] [facility] PPSV23 (PNEUMOVAX) Branch Influenza Virus 2014-09-05 Completed Universit y of Vaccine Quad IM 3+ 00:00:00 [facility] Pneumococcal 2014-09-05 Completed University o f Polysaccharide, 00:00:00 [place] [facility] PPSV23 (PNEUMOVAX) Branch Influenza Virus 2014-09-05 Completed Universit y of Vaccine [facility] IM 3+ 00:00:00 [facility] Pneumococcal 2014-09-05 Completed [facility] o f Polysaccharide, 00:00:00 [place] [facility] PPSV23 (PNEUMOVAX) Branch Influenza Virus 2014-09-05 Completed Universit y of Vaccine [facility] IM 3+ 00:00:00 [facility] Pneumococcal 2014-09-05 Completed [facility] o f Polysaccharide, 00:00:00 [place] [facility] PPSV23 (PNEUMOVAX) Branch Influenza Virus 2014-09-05 Completed Universit y of Vaccine Quad IM 3+ 00:00:00 [facility] Pneumococcal 2014-09-05 Completed [facility] o f Polysaccharide, 00:00:00 [place] [facility] PPSV23 (PNEUMOVAX) Branch Influenza Virus 2014-09-05 Completed Universit y of Vaccine [facility] IM 3+ 00:00:00 [facility] Pneumococcal 2014-09-05 Completed University o f Polysaccharide, 00:00:00 [place] [facility] PPSV23 (PNEUMOVAX) Branch Influenza Virus 2014-09-05 Completed Universit y of Vaccine Quad IM 3+ 00:00:00 [facility] Pneumococcal 2014-09-05 Completed [facility] o f Polysaccharide, 00:00:00 [place] [facility] PPSV23 (PNEUMOVAX) Branch Influenza Virus 2014-09-05 Completed Universit y of Vaccine [facility] IM 3+ 00:00:00 [facility] Pneumococcal 2014-09-05 Completed [facility] o f Polysaccharide, 00:00:00 [place] [facility] PPSV23 (PNEUMOVAX) Branch Influenza Virus 2014-09-05 Completed [facility]it y of Vaccine [facility] IM 3+ 00:00:00 [facility] Pneumococcal 2014-09-05 Completed [facility] o f Polysaccharide, 00:00:00 [place] [facility] PPSV23 (PNEUMOVAX) Branch Influenza Virus 2014-09-05 Completed Universit y of Vaccine [facility] IM 3+ 00:00:00 [facility] Influenza Virus 2014-09-05 Completed [facility]it y of Vaccine [facility] IM 3+ 00:00:00 [facility] Pneumococcal 2014-09-05 Completed [facility] o f Polysaccharide, 00:00:00 [place] [facility] PPSV23 (PNEUMOVAX) Branch Pneumococcal 2014-09-05 Completed [facility] o f Polysaccharide, 00:00:00 [place] [facility] PPSV23 (PNEUMOVAX) Branch Influenza Virus 2014-09-05 Completed Universit y of Vaccine [facility] IM 3+ 00:00:00 [facility] Pneumococcal 2014-09-05 Completed [facility] o f Polysaccharide, 00:00:00 [place] [facility] PPSV23 (PNEUMOVAX) Branch Influenza Virus 2014-09-05 Completed Universit y of Vaccine [facility] IM 3+ 00:00:00 [facility] Pneumococcal 2014-09-05 Completed [facility] o f Polysaccharide, 00:00:00 [place] [facility] PPSV23 (PNEUMOVAX) Branch Influenza Virus 2014-09-05 Completed Universit y of Vaccine [facility] IM 3+ 00:00:00 [facility] Pneumococcal 2014-09-05 Completed [facility] o f Polysaccharide, 00:00:00 [place] [facility] PPSV23 (PNEUMOVAX) Branch Influenza Virus 2014-09-05 Completed Universit y of Vaccine [facility] IM 3+ 00:00:00 [facility] Pneumococcal 2014-09-05 Completed [facility] o f Polysaccharide, 00:00:00 [place] [facility] PPSV23 (PNEUMOVAX) Branch Influenza Virus 2014-09-05 Completed [facility]it y of Vaccine [facility] IM 3+ 00:00:00 [facility] Pneumococcal 2014-09-05 Completed [facility] o f Polysaccharide, 00:00:00 [place] [facility] PPSV23 (PNEUMOVAX) Branch Influenza Virus 2014-09-05 Completed [facility]it y of Vaccine [facility] IM 3+ 00:00:00 [facility] Pneumococcal 2014-09-05 Completed [facility] o f Polysaccharide, 00:00:00 [place] [facility] PPSV23 (PNEUMOVAX) Branch Influenza Virus 2014-09-05 Completed [facility]it y of Vaccine [facility] IM 3+ 00:00:00 [facility] Pneumococcal 2014-09-05 Completed [facility] o f Polysaccharide, 00:00:00 [place] [facility] PPSV23 (PNEUMOVAX) Branch Influenza Virus 2014-09-05 Completed [facility]it y of Vaccine [facility] IM 3+ 00:00:00 [facility] Pneumococcal 2014-09-05 Completed [facility] o f Polysaccharide, 00:00:00 [place] [facility] PPSV23 (PNEUMOVAX) Branch Influenza Virus 2014-09-05 Completed [facility]it y of Vaccine [facility] IM 3+ 00:00:00 [facility] Pneumococcal 2014-09-05 Completed [facility] o f Polysaccharide, 00:00:00 [place] [facility] PPSV23 (PNEUMOVAX) Branch Influenza Virus 2014-09-05 Completed [facility]it y of Vaccine [facility] IM 3+ 00:00:00 [facility] Pneumococcal 2014-09-05 Completed [facility] o f Polysaccharide, 00:00:00 [place] [facility] PPSV23 (PNEUMOVAX) Branch Influenza Virus 2014-09-05 Completed [facility]it y of Vaccine [facility] IM 3+ 00:00:00 [facility] Pneumococcal 2014-09-05 Completed [facility] o f Polysaccharide, 00:00:00 [place] [facility] PPSV23 (PNEUMOVAX) Branch Influenza Virus 2014-09-05 Completed [facility]it y of Vaccine [facility] IM 3+ 00:00:00 [facility] Pneumococcal 2014-09-05 Completed [facility] o f Polysaccharide, 00:00:00 [place] [facility] PPSV23 (PNEUMOVAX) Branch Influenza Virus 2014-09-05 Completed [facility]it y of Vaccine [facility] IM 3+ 00:00:00 [facility] Pneumococcal 2014-09-05 Completed [facility] o f Polysaccharide, 00:00:00 [place] [facility] PPSV23 (PNEUMOVAX) Branch Influenza Virus 2014-09-05 Completed Universit y of Vaccine [facility] IM 3+ 00:00:00 [facility] Pneumococcal 2014-09-05 Completed [facility] o f Polysaccharide, 00:00:00 [place] [facility] PPSV23 (PNEUMOVAX) Branch Influenza Virus 2014-09-05 Completed Universit y of Vaccine [facility] IM 3+ 00:00:00 [facility] Pneumococcal 2014-09-05 Completed [facility] o f Polysaccharide, 00:00:00 [place] [facility] PPSV23 (PNEUMOVAX) Branch Influenza Virus 2014-09-05 Completed Universit y of Vaccine [facility] IM 3+ 00:00:00 [facility] Pneumococcal 2014-09-05 Completed [facility] o f Polysaccharide, 00:00:00 [place] [facility] PPSV23 (PNEUMOVAX) Branch Influenza Virus 2014-09-05 Completed Universit y of Vaccine [facility] IM 3+ 00:00:00 [facility] Pneumococcal 2014-09-05 Completed [facility] o f Polysaccharide, 00:00:00 [place] [facility] PPSV23 (PNEUMOVAX) Branch Influenza Virus 2014-09-05 Completed Universit y of Vaccine Quad IM 3+ 00:00:00 [facility] Pneumococcal 2014-09-05 Completed [facility] o f Polysaccharide, 00:00:00 [place] [facility] PPSV23 (PNEUMOVAX) Branch Influenza Virus 2014-09-05 Completed Universit y of Vaccine Quad IM 3+ 00:00:00 [facility] Pneumococcal 2014-09-05 Completed University o f Polysaccharide, 00:00:00 [place] [facility] PPSV23 (PNEUMOVAX) Branch Influenza Virus 2014-09-05 Completed Universit y of Vaccine Quad IM 3+ 00:00:00 [facility] Pneumococcal 2014-09-05 Completed [facility] o f Polysaccharide, 00:00:00 [place] [facility] PPSV23 (PNEUMOVAX) Branch Influenza Virus 2014-09-05 Completed Universit y of Vaccine [facility] IM 3+ 00:00:00 [facility] Pneumococcal 2014-09-05 Completed University o f Polysaccharide, 00:00:00 [place] [facility] PPSV23 (PNEUMOVAX) Branch Influenza Virus 2014-09-05 Completed Universit y of Vaccine Quad IM 3+ 00:00:00 [facility] Pneumococcal 2014-09-05 Completed University o f Polysaccharide, 00:00:00 [place] [facility] PPSV23 (PNEUMOVAX) Branch Influenza Virus 2014-09-05 Completed Universit y of Vaccine Quad IM 3+ 00:00:00 [facility] Pneumococcal 2014-09-05 Completed [facility] o f Polysaccharide, 00:00:00 [place] [facility] PPSV23 (PNEUMOVAX) Branch Influenza Virus 2014-09-05 Completed Universit y of Vaccine Quad IM 3+ 00:00:00 [facility] Pneumococcal 2014-09-05 Completed University o f Polysaccharide, 00:00:00 [place] [facility] PPSV23 (PNEUMOVAX) Branch Influenza Virus 2014-09-05 Completed Universit y of Vaccine Quad IM 3+ 00:00:00 [facility] Pneumococcal 2014-09-05 Completed University o f Polysaccharide, 00:00:00 [place] [facility] PPSV23 (PNEUMOVAX) Branch Influenza Virus 2014-09-05 Completed Universit y of Vaccine Quad IM 3+ 00:00:00 [facility] Pneumococcal 2014-09-05 Completed University o f Polysaccharide, 00:00:00 [place] [facility] PPSV23 (PNEUMOVAX) Branch Influenza Virus 2014-09-05 Completed Universit y of Vaccine Quad IM 3+ 00:00:00 [facility] Pneumococcal 2014-09-05 Completed University o f Polysaccharide, 00:00:00 [place] [facility] PPSV23 (PNEUMOVAX) Branch Influenza Virus 2014-09-05 Completed Universit y of Vaccine Quad IM 3+ 00:00:00 [facility] Pneumococcal 2014-09-05 Completed University o f Polysaccharide, 00:00:00 [place] [facility] PPSV23 (PNEUMOVAX) Branch Influenza Virus 2014-09-05 Completed Universit y of Vaccine Quad IM 3+ 00:00:00 [facility] Pneumococcal 2014-09-05 Completed [facility] o f Polysaccharide, 00:00:00 [place] [facility] PPSV23 (PNEUMOVAX) Branch Influenza Virus 2014-09-05 Completed Universit y of Vaccine Quad IM 3+ 00:00:00 [facility] Pneumococcal 2014-09-05 Completed University o f Polysaccharide, 00:00:00 [place] [facility] PPSV23 (PNEUMOVAX) Branch Influenza Virus 2014-09-05 Completed Universit y of Vaccine Quad IM 3+ 00:00:00 [facility] Pneumococcal 2014-09-05 Completed University o f Polysaccharide, 00:00:00 [place] [facility] PPSV23 (PNEUMOVAX) Branch Influenza Virus 2014-09-05 Completed Universit y of Vaccine Quad IM 3+ 00:00:00 [facility] Pneumococcal 2014-09-05 Completed University o f Polysaccharide, 00:00:00 [place] [facility] PPSV23 (PNEUMOVAX) Branch Influenza Virus 2014-09-05 Completed Universit y of Vaccine Quad IM 3+ 00:00:00 [facility] Pneumococcal 2014-09-05 Completed University o f Polysaccharide, 00:00:00 [place] [facility] PPSV23 (PNEUMOVAX) Branch Influenza Virus 2014-09-05 Completed Universit y of Vaccine Quad IM 3+ 00:00:00 [facility] Influenza Virus 2014-09-05 Completed Universit y of Vaccine Quad IM 3+ 00:00:00 [facility] Pneumococcal 2014-09-05 Completed University o f Polysaccharide, 00:00:00 [place] [facility] PPSV23 (PNEUMOVAX) Branch Pneumococcal 2014-09-05 Completed University o f Polysaccharide, 00:00:00 [place] [facility] PPSV23 (PNEUMOVAX) Branch Influenza Virus 2014-09-05 Completed Universit y of Vaccine Quad IM 3+ 00:00:00 [facility] Pneumococcal 2014-09-05 Completed University o f Polysaccharide, 00:00:00 [place] [facility] PPSV23 (PNEUMOVAX) Branch Influenza Virus 2014-09-05 Completed Universit y of Vaccine Quad IM 3+ 00:00:00 [facility] Pneumococcal 2014-09-05 Completed University o f Polysaccharide, 00:00:00 [place] [facility] PPSV23 (PNEUMOVAX) Branch Influenza Virus 2014-09-05 Completed Universit y of Vaccine Quad IM 3+ 00:00:00 [facility] Pneumococcal 2014-09-05 Completed University o f Polysaccharide, 00:00:00 [facility] ical PPSV23 (PNEUMOVAX) Branch Influenza Virus 2014-09-05 Completed Universit y of Vaccine Quad IM 3+ 00:00:00 [facility] Branch Influenza Virus Unknown Completed Universit y of Vaccine Quad IM 3+ [facility] Branch Pneumococcal Unknown Completed University o f Polysaccharide, [facility] ical PPSV23 (PNEUMOVAX) Branch TD, NOS Unknown Completed [facility] SARS-COV-2 COVID-19 Unknown Completed Unive rsity of MODERNA 12+ YRS [place] [facility] VACCINE Branch SARS-COV-2 COVID-19 Unknown Completed Unive rsity of MODERNA 12+ YRS [facility] ical VACCINE Branch Pneumococcal 20 Unknown Completed Universit y of Conjugate, PCV20 [facility] dical (Prevnar 20) Branch Influenza Virus Unknown Completed Universit y of Vaccine Quad IM 3+ [facility] Branch Pneumococcal Unknown Completed University o f Polysaccharide, [facility] ical PPSV23 (PNEUMOVAX) Branch TD, NOS Unknown Completed [facility] SARS-COV-2 COVID-19 Unknown Completed Unive rsity of MODERNA 12+ YRS [place] [facility] VACCINE Branch SARS-COV-2 COVID-19 Unknown Completed Unive rsity of MODERNA 12+ YRS [facility] ical VACCINE Branch Pneumococcal 20 Unknown Completed Universit y of Conjugate, PCV20 [facility] dical (Prevnar 20) Branch Vital Signs Vital Name Observation Time Observation Value Comments Source Systolic blood 2023-04-19 126 mm[Hg] University of pressure 15:37:00 [facility] Diastolic blood 2023-04-19 83 mm[Hg] University o f pressure 15:37:00 [facility] Heart rate 2023-04-19 94 /min University 15:37:00 [facility] Respiratory rate 2023-04-19 18 /min [facility] 15:35:00 [facility] Body height 2023-04-19 177.8 cm University 15:35:00 [facility] Body weight 2023-04-19 59.138 kg University 15:35:00 [facility] BMI 2023-04-19 18.71 kg/m2 University 15:35:00 [facility] Oxygen saturation 2023-04-19 94 /min [facility] Arterial blood 15:35:00 [facility] by Pulse oximetry Branch Systolic blood 2023-03-01 143 mm[Hg] University of pressure 20:27:00 [facility] Diastolic blood 2023-03-01 87 mm[Hg] University o f pressure 20:27:00 [facility] Heart rate 2023-03-01 99 /min University of 20:27:00 [facility] Body height 2023-03-01 177.8 cm University of 20:27:00 [facility] Body weight 2023-03-01 57.153 kg University of 20:27:00 [facility] BMI 2023-03-01 18.08 kg/m2 University of 20:27:00 [facility] Oxygen saturation 2023-03-01 99 /min University of in Arterial blood 20:27:00 [facility] lucho by Pulse oximetry Branch Systolic blood 2023-02-18 144 mm[Hg] University of pressure 16:17:00 [facility] Diastolic blood 2023-02-18 68 mm[Hg] University o f pressure 16:17:00 [facility] Heart rate 2023-02-18 55 /min University of 16:17:00 [facility] Body temperature 2023-02-18 36.06 Tia University of 16:17:00 [facility] Respiratory rate 2023-02-18 18 /min University of 16:17:00 [facility] Oxygen saturation 2023-02-18 100 /min University of in Arterial blood 16:17:00 [facility] lucho by Pulse oximetry Branch Body weight 2023-02-18 58.968 kg University of 07:50:00 [facility] BMI 2023-02-18 18.65 kg/m2 University of 07:50:00 [facility] Body height 2023-02-16 177.8 cm University of 00:31:00 [facility] Oxygen saturation 2023-02-07 99 /min University of in Arterial blood 19:29:00 [place] [facility] by Pulse oximetry Branch Systolic blood 2023-02-07 103 mm[Hg] University of pressure 19:27:00 [facility] Branch Diastolic blood 2023-02-07 75 mm[Hg] University o f pressure 19:27:00 [facility] Branch Heart rate 2023-02-07 104 /min University of 19:27:00 [facility] Body temperature 2023-02-07 36.39 Tia University of 19:27:00 [facility] Branch Respiratory rate 2023-02-07 22 /min University of 19:27:00 [facility] Body weight 2023-02-07 72.576 kg University of 19:27:00 [facility] BMI 2023-02-07 22.96 kg/m2 University of 19:27:00 [facility] Heart rate 2023-02-05 85 /min University of 20:17:00 [facility] Respiratory rate 2023-02-05 18 /min University of 20:17:00 [facility] Oxygen saturation 2023-02-05 100 /min University of in Arterial blood 20:17:00 [facility]ucho by Pulse oximetry Branch Systolic blood 2023-02-05 98 mm[Hg] University of pressure 19:53:35 [facility] Branch Diastolic blood 2023-02-05 71 mm[Hg] University o f pressure 19:53:35 [facility] Body temperature 2023-02-05 36.5 Tia University of 19:51:00 [facility] Body height 2023-02-05 177.8 cm University of 19:51:00 [facility] Body weight 2023-02-05 72.576 kg University of 19:51:00 [facility] BMI 2023-02-05 22.96 kg/m2 University of 19:51:00 [facility] Heart rate 2023-02-04 76 /min University of 20:31:00 [facility] Respiratory rate 2023-02-04 18 /min University of 20:31:00 [facility] Oxygen saturation 2023-02-04 97 /min University of in Arterial blood 20:31:00 [facility] by Pulse oximetry Branch Systolic blood 2023-02-04 126 mm[Hg] University of pressure 20:15:00 [facility] Diastolic blood 2023-02-04 98 mm[Hg] University o f pressure 20:15:00 [facility] Body temperature 2023-02-04 36.83 Tia University of 20:15:00 [facility] Body weight 2023-02-04 72.576 kg University of 20:15:00 [facility] BMI 2023-02-04 22.96 kg/m2 University of 20:15:00 [facility] Systolic blood 2023-02-03 100 mm[Hg] University of pressure 23:00:00 [facility] Diastolic blood 2023-02-03 65 mm[Hg] University o f pressure 23:00:00 [facility] Heart rate 2023-02-03 115 /min University of 23:00:00 [facility] Branch Respiratory rate 2023-02-03 20 /min University of 23:00:00 [facility] Branch Oxygen saturation 2023-02-03 97 /min University of in Arterial blood 23:00:00 [facility] by Pulse oximetry Branch Body temperature 2023-02-03 36.72 Tia University of 22:44:00 [facility] Body weight 2023-02-03 72.576 kg University of 22:44:00 [facility] BMI 2023-02-03 22.96 kg/m2 University of 22:44:00 [facility] Systolic blood 2023-02-03 128 mm[Hg] University of pressure 20:02:00 [facility] Branch Diastolic blood 2023-02-03 81 mm[Hg] University o f pressure 20:02:00 [facility] Heart rate 2023-02-03 88 /min University of 20:02:00 [facility] Respiratory rate 2023-02-03 25 /min University of 20:02:00 [facility] Oxygen saturation 2023-02-03 94 /min University of in Arterial blood 20:02:00 [facility] by Pulse oximetry Branch Body temperature 2023-02-03 36.61 Tia University of 18:18:00 [facility] Body weight 2023-02-03 72.576 kg University of 17:41:00 [facility] BMI 2023-02-03 22.96 kg/m2 University of 17:41:00 [facility] Heart rate 2023-02-02 107 /min University of 22:49:00 [facility] Respiratory rate 2023-02-02 20 /min University of 22:49:00 [facility] Oxygen saturation 2023-02-02 94 /min University of in Arterial blood 22:49:00 [facility] by Pulse oximetry Branch Systolic blood 2023-02-02 102 mm[Hg] University of pressure 22:32:00 [facility] Branch Diastolic blood 2023-02-02 74 mm[Hg] University o f pressure 22:32:00 [facility] Body temperature 2023-02-02 35.83 Tia University of 21:58:32 [facility] Body height 2023-02-02 177.8 cm University of 21:54:00 [facility] Body weight 2023-02-02 72.576 kg University of 21:54:00 [facility] BMI 2023-02-02 22.96 kg/m2 University of 21:54:00 [facility] Systolic blood 2023-01-31 140 mm[Hg] University of pressure 21:00:00 [facility] Diastolic blood 2023-01-31 72 mm[Hg] University o f pressure 21:00:00 [facility] Heart rate 2023-01-31 89 /min University of 21:00:00 [facility] Respiratory rate 2023-01-31 20 /min University of 21:00:00 [facility] Oxygen saturation 2023-01-31 97 /min University of in Arterial blood 21:00:00 [facility] by Pulse oximetry Branch Body temperature 2023-01-31 36.72 [facility] 18:50:00 [facility] Body weight 2023-01-31 72.576 kg University of 18:50:00 [facility] BMI 2023-01-31 22.96 kg/m2 [facility] 18:50:00 [facility] Systolic blood 2023-01-31 130 mm[Hg] [facility] of pressure 16:09:00 [facility] Diastolic blood 2023-01-31 72 mm[Hg] [facility] o f pressure 16:09:00 [facility] Heart rate 2023-01-31 99 /min [facility] 16:09:00 [facility] Body temperature 2023-01-31 36.39 [facility] 16:09:00 [facility] Respiratory rate 2023-01-31 18 /min [facility] 16:09:00 [facility] Body height 2023-01-31 177.8 cm [facility] 16:09:00 [facility] Body weight 2023-01-31 72.576 kg [facility] of 16:09:00 [facility] BMI 2023-01-31 22.96 kg/m2 [facility] 16:09:00 [facility] Oxygen saturation 2023-01-31 97 /min [facility] of in Arterial blood 16:09:00 [place] [facility] Pulse oxim[facility] Systolic blood 2023-01-31 134 mm[Hg] [facility] pressure 14:50:00 [facility] Diastolic blood 2023-01-31 72 mm[Hg] [facility] o f pressure 14:50:00 [facility] Heart rate 2023-01-31 85 /min [facility] 14:50:00 [facility] Body temperature 2023-01-31 36.39 T[facility] 14:50:00 [facility] Respiratory rate 2023-01-31 20 /min [facility] 14:50:00 [facility] Body weight 2023-01-31 72.576 kg [facility] of 14:50:00 [facility] BMI 2023-01-31 22.96 kg/m2 [facility] 14:50:00 [facility] Oxygen saturation 2023-01-31 100 /min [facility] in Arterial blood 14:50:00 [place] [facility] Respiratory rate 2023-01-29 20 /min [facility] 13:40:00 [facility] Oxygen saturation 2023-01-29 100 /min [facility] in Arterial blood 13:40:00 [place] [facility] P[facility] Systolic blood 2023-01-29 123 mm[Hg] [facility] pressure 13:06:00 [facility] Diastolic blood 2023-01-29 76 mm[Hg] [facility] o f pressure 13:06:00 [facility] Heart rate 2023-01-29 97 /min [facility] 13:06:00 [facility] Body temperature 2023-01-29 36.61 [facility] 13:06:00 [facility] Body height 2023-01-29 177.8 cm [facility] 13:06:00 [facility] Body weight 2023-01-29 72.576 kg [facility] 13:06:00 [facility] BMI 2023-01-29 22.96 kg/m2 [facility] 13:06:00 [facility] Systolic blood 2023-01-27 115 mm[Hg] [facility] pressure 11:47:00 [facility] Diastolic blood 2023-01-27 75 mm[Hg] [facility] o f pressure 11:47:00 [facility] Heart rate 2023-01-27 100 /min [facility] 11:47:00 [facility] Body temperature 2023-01-27 35.78 [facility] 11:47:00 [facility] Respiratory rate 2023-01-27 28 /min [facility] 11:47:00 [facility] Oxygen saturation 2023-01-27 99 /min [facility] in Arterial blood 11:47:00 [place] [facility] Body height 2023-01-27 177.8 cm [facility] 09:57:00 [facility] Body weight 2023-01-27 72.576 kg University of 09:57:00 [facility] BMI 2023-01-27 22.96 kg/m2 [facility] of 09:57:00 [facility] Heart rate 2023-01-24 88 /min [facility] of 20:55:00 [facility] Oxygen saturation 2023-01-24 93 /min University of in Arterial blood 20:55:00 [facility] by Pulse oximetry Branch Respiratory rate 2023-01-24 22 /min [facility] of 20:52:00 [facility] Systolic blood 2023-01-24 128 mm[Hg] [facility] pressure 20:30:00 [facility] Diastolic blood 2023-01-24 69 mm[Hg] [facility] pressure 20:30:00 [facility] Body temperature 2023-01-24 36.67 [facility] 17:24:00 [facility] Body height 2023-01-24 177.8 cm University 17:24:00 [facility] Body weight 2023-01-24 72.576 kg [facility] of 17:24:00 [facility] BMI 2023-01-24 22.96 kg/m2 [facility] 17:24:00 [facility] Systolic blood 2023-01-24 129 mm[Hg] [facility] pressure 01:00:00 [facility] Diastolic blood 2023-01-24 76 mm[Hg] [facility] o f pressure 01:00:00 [facility] Heart rate 2023-01-24 77 /min University 01:00:00 [facility] Respiratory rate 2023-01-24 18 /min [facility] of 01:00:00 [facility] Oxygen saturation 2023-01-24 99 /min [place] [facility] in Arterial blood 01:00:00 [facility] by Pulse oximetry Branch Body temperature 2023-01-24 35.61 Tia warm blankets [facility] of 00:02:00 applied [facility] Body weight 2023-01-24 58.968 kg University of 00:02:00 [facility] BMI 2023-01-24 18.65 kg/m2 University of 00:02:00 [facility] Heart rate 2023-01-22 93 /min [facility] of 23:46:00 [facility] Respiratory rate 2023-01-22 20 /min [facility] of 23:46:00 [facility] Oxygen saturation 2023-01-22 100 /min [facility] of in Arterial blood 23:46:00 [facility] by Pulse oximetry Branch Systolic blood 2023-01-22 146 mm[Hg] [facility] pressure 23:21:00 [facility] Diastolic blood 2023-01-22 93 mm[Hg] University o f pressure 23:21:00 [facility] Body temperature 2023-01-22 36.72 [facility] 23:21:00 [facility] Body weight 2023-01-22 58.968 kg University of 23:21:00 [facility] BMI 2023-01-22 18.65 kg/m2 [facility] of 23:21:00 [facility] Heart rate 2023-01-21 84 /min University of 21:57:00 [facility] Respiratory rate 2023-01-21 18 /min [facility] of 21:57:00 [facility] Oxygen saturation 2023-01-21 97 /min University of in Arterial blood 21:57:00 [facility] by Pulse oximetry Branch Systolic blood 2023-01-21 103 mm[Hg] [facility] pressure 21:00:00 [facility] Diastolic blood 2023-01-21 61 mm[Hg] [facility] o f pressure 21:00:00 [facility] Body temperature 2023-01-21 36.56 [facility] 19:24:00 [facility] Body weight 2023-01-21 58.968 kg [facility] of 19:24:00 [facility] BMI 2023-01-21 18.65 kg/m2 [facility] of 19:24:00 [facility] Systolic blood 2023-01-19 111 mm[Hg] [facility] pressure 21:00:00 [facility] Diastolic blood 2023-01-19 64 mm[Hg] [facility] o f pressure 21:00:00 [facility] Heart rate 2023-01-19 85 /min [facility] of 21:00:00 [facility] Body temperature 2023-01-19 36.56 [facility] 21:00:00 [facility] Respiratory rate 2023-01-19 17 /min [facility] 21:00:00 [facility] Oxygen saturation 2023-01-19 98 /min [facility] of in Arterial blood 21:00:00 [facility] by Pulse oximetry Branch Body height 2023-01-19 177.8 cm University of 06:22:00 [facility] Body weight 2023-01-19 58.968 kg University of 06:22:00 [facility] BMI 2023-01-19 18.65 kg/m2 [facility] of 06:22:00 [facility] Systolic blood 2023-01-17 116 mm[Hg] [facility] pressure 12:05:00 [facility] Diastolic blood 2023-01-17 69 mm[Hg] [facility] o f pressure 12:05:00 [facility] Heart rate 2023-01-17 100 /min [facility] of 12:05:00 [facility] Respiratory rate 2023-01-17 24 /min [facility] 12:05:00 [facility] Oxygen saturation 2023-01-17 93 /min [facility] in Arterial blood 12:05:00 [facility] by Pulse oximetry [place] Body temperature 2023-01-17 35.39 [facility] 10:59:00 [facility] Body height 2023-01-17 177.8 cm University of 10:59:00 [facility] Body weight 2023-01-17 58.968 kg [facility] of 10:59:00 [facility] BMI 2023-01-17 18.65 kg/m2 [facility] of 10:59:00 [facility] Systolic blood 2023-01-07 122 mm[Hg] [facility] pressure 19:38:00 [facility] Diastolic blood 2023-01-07 86 mm[Hg] [facility] o f pressure 19:38:00 [facility] Heart rate 2023-01-07 110 /min [facility] 19:38:00 [facility] Respiratory rate 2023-01-07 16 /min [facility] 19:38:00 [facility] Body height 2023-01-07 177.8 cm [facility] 19:38:00 [facility] Body weight 2023-01-07 59.966 kg [facility] of 19:38:00 [facility] BMI 2023-01-07 18.97 kg/m2 [facility] of 19:38:00 [facility] Systolic blood 2022-12-26 118 mm[Hg] [facility] pressure 18:00:00 [facility] Diastolic blood 2022-12-26 79 mm[Hg] [facility] o f pressure 18:00:00 [facility] Heart rate 2022-12-26 93 /min [facility] 18:00:00 [facility] Respiratory rate 2022-12-26 20 /min [facility] 18:00:00 [facility] Oxygen saturation 2022-12-26 95 /min [facility] in Arterial blood 18:00:00 [place] [facility] Body temperature 2022-12-26 36.11 [facility] 15:49:00 [facility] Body height 2022-12-26 177.8 cm [facility] 15:49:00 [facility] Body weight 2022-12-26 72.576 kg [facility] of 15:49:00 [facility] BMI 2022-12-26 22.96 kg/m2 [facility] of 15:49:00 [facility] Respiratory rate 2022-12-12 18 /min [facility] of 16:45:00 [facility] Oxygen saturation 2022-12-12 99 /min [facility] of in Arterial blood 16:45:00 [place] [facility] Systolic blood 2022-12-12 135 mm[Hg] [facility] pressure 16:11:00 [facility] Diastolic blood 2022-12-12 80 mm[Hg] [facility] o f pressure 16:11:00 [facility] Heart rate 2022-12-12 77 /min [facility] of 16:11:00 [facility] Body temperature 2022-12-12 35.89 [facility] 16:11:00 [facility] Body weight 2022-12-12 65 kg University of 08:50:00 [facility] BMI 2022-12-12 20.56 kg/m2 [facility] of 08:50:00 [facility] Body height 2022-12-11 177.8 cm University of 04:23:00 [facility] Heart rate 2022-12-04 95 /min [facility] of 12:33:00 [facility] Respiratory rate 2022-12-04 17 /min [facility] of 12:33:00 [facility] Oxygen saturation 2022-12-04 98 /min [facility] in Arterial blood 12:33:00 [place] [facility] Systolic blood 2022-12-04 125 mm[Hg] [facility] pressure 12:20:00 [facility] Diastolic blood 2022-12-04 74 mm[Hg] University o f pressure 12:20:00 [facility] Body temperature 2022-12-04 36.61 Tia [facility] 12:20:00 [facility] Body height 2022-12-02 177.8 cm University of 05:16:00 [facility] Body weight 2022-12-02 72.576 kg University of 05:16:00 [facility] BMI 2022-12-02 22.96 kg/m2 University of 05:16:00 [facility] Systolic blood 2022-12-01 114 mm[Hg] [facility] pressure 13:00:00 [facility] Diastolic blood 2022-12-01 78 mm[Hg] [facility] o f pressure 13:00:00 [facility] Heart rate 2022-12-01 88 /min [facility] of 13:00:00 [facility] Respiratory rate 2022-12-01 20 /min [facility] 13:00:00 [facility] Oxygen saturation 2022-12-01 98 /min [facility] in Arterial blood 13:00:00 [place] [facility] Body temperature 2022-12-01 36.67 [facility] 10:13:00 [facility] Body height 2022-12-01 177.8 cm [facility] of 10:13:00 [facility] Body weight 2022-12-01 72.576 kg [facility] of 10:13:00 [facility] BMI 2022-12-01 22.96 kg/m2 [facility] of 10:13:00 [facility] Systolic blood 2022-11-28 154 mm[Hg] [facility] pressure 17:00:00 [facility] Diastolic blood 2022-11-28 106 mm[Hg] [facility] o f pressure 17:00:00 [facility] Heart rate 2022-11-28 87 /min [facility] 17:00:00 [facility] Respiratory rate 2022-11-28 23 /min [facility] 17:00:00 [facility] Oxygen saturation 2022-11-28 96 /min [facility] in Arterial blood 17:00:00 [place] [facility] Body temperature 2022-11-28 36.78 [facility] 16:00:00 [facility] Body weight 2022-11-27 67.132 kg [facility] of 12:00:00 [facility] BMI 2022-11-27 21.24 kg/m2 [facility] of 12:00:00 [facility] Body height 2022-11-27 177.8 cm [facility] of 08:39:00 [facility] Systolic blood 2022-11-19 152 mm[Hg] [facility] pressure 10:48:00 [facility] Diastolic blood 2022-11-19 88 mm[Hg] University o f pressure 10:48:00 [facility] Heart rate 2022-11-19 92 /min [facility] of 10:48:00 [facility] Respiratory rate 2022-11-19 16 /min [facility] of 10:48:00 [facility] Oxygen saturation 2022-11-19 98 /min [facility] in Arterial blood 10:48:00 [place] [facility] Body temperature 2022-11-19 36.22 [facility] 08:20:00 [facility] Body height 2022-11-19 177.8 cm [facility] of 08:20:00 [facility] Body weight 2022-11-19 67.132 kg [facility] of 08:20:00 [facility] BMI 2022-11-19 21.24 kg/m2 [facility] of 08:20:00 [facility] Systolic blood 2022-11-19 152 mm[Hg] [facility] pressure 02:18:57 [facility] Diastolic blood 2022-11-19 91 mm[Hg] [facility] o f pressure 02:18:57 [facility] Heart rate 2022-11-19 109 /min [facility] of 02:18:57 [facility] Respiratory rate 2022-11-19 22 /min [facility] of 02:18:57 [facility] Oxygen saturation 2022-11-19 95 /min [facility] in Arterial blood 02:18:57 [facility] by Pulse oximetry [facility] Body temperature 2022-11-19 36.78 [facility] 02:17:11 [facility] Body height 2022-11-19 177.8 cm University of 00:52:00 [facility] Body weight 2022-11-19 67.132 kg University of 00:52:00 [facility] BMI 2022-11-19 21.24 kg/m2 University of 00:52:00 [facility] Heart rate 2022-11-11 75 /min [facility] 17:35:00 [facility] Respiratory rate 2022-11-11 18 /min [facility] of 17:35:00 [facility] Oxygen saturation 2022-11-11 95 /min [facility] in Arterial blood 17:35:00 [place] [facility] Systolic blood 2022-11-11 130 mm[Hg] [facility] pressure 17:25:00 [facility] Diastolic blood 2022-11-11 71 mm[Hg] University o f pressure 17:25:00 [facility] Body temperature 2022-11-11 35.94 [facility] 17:25:00 [facility] Body weight 2022-11-11 77.52 kg University of 09:34:00 [facility] BMI 2022-11-11 24.52 kg/m2 University of 09:34:00 [facility] Body height 2022-11-09 177.8 cm University of 19:30:00 [facility] Systolic blood 2020-12-29 96 mm[Hg] [facility] pressure 15:24:00 [facility] Diastolic blood 2020-12-29 66 mm[Hg] [facility] o f pressure 15:24:00 [facility] Heart rate 2020-12-29 71 /min [facility] of 15:24:00 [facility] Body temperature 2020-12-29 36.33 Tia [facility] 15:24:00 [facility] Body weight 2020-12-29 72.576 kg University of 15:24:00 [facility] BMI 2020-12-29 22.96 kg/m2 University of 15:24:00 [facility] Oxygen saturation 2020-12-29 95 /min [facility] in Arterial blood 15:24:00 [facility] Pulse oximetry [place] Systolic blood 2020-12-18 117 mm[Hg] [facility] of pressure 19:07:00 [facility] Diastolic blood 2020-12-18 77 mm[Hg] University o f pressure 19:07:00 [facility] Heart rate 2020-12-18 77 /min [facility] of 19:07:00 [facility] Body temperature 2020-12-18 36.22 Tia [facility] 19:07:00 [facility] Respiratory rate 2020-12-18 18 /min [facility] of 19:07:00 [facility] Body height 2020-12-18 177.8 cm University of 19:07:00 [facility] Body weight 2020-12-18 73.211 kg University of 19:07:00 [facility] BMI 2020-12-18 23.16 kg/m2 University of 19:07:00 [facility] Systolic blood 2020-12-12 109 mm[Hg] [facility] of pressure 18:00:00 [facility] Diastolic blood 2020-12-12 74 mm[Hg] University o f pressure 18:00:00 [facility] Heart rate 2020-12-12 78 /min [facility] of 18:00:00 [facility] Respiratory rate 2020-12-12 20 /min [facility] of 18:00:00 [facility] Oxygen saturation 2020-12-12 96 /min [facility] in Arterial blood 18:00:00 [facility] by Pulse oximetry Branch Body temperature 2020-12-12 37.28 Tia [facility] 16:33:00 [place] [facility] [place] Body height 2020-12-12 177.8 cm University of 16:33:00 [facility] Body weight 2020-12-12 70.308 kg University of 16:33:00 [facility] BMI 2020-12-12 22.24 kg/m2 University of 16:33:00 [facility] Systolic blood 2020-12-08 125 mm[Hg] [facility] of pressure 18:55:00 [facility] Diastolic blood 2020-12-08 82 mm[Hg] University o f pressure 18:55:00 [facility] Heart rate 2020-12-08 75 /min [facility] of 18:55:00 [facility] Body temperature 2020-12-08 36.56 Tia [facility] 18:55:00 [facility] Respiratory rate 2020-12-08 16 /min [facility] of 18:55:00 [facility] Body height 2020-12-08 177.8 cm University of 18:55:00 [facility] Body weight 2020-12-08 73.12 kg University of 18:55:00 [facility] BMI 2020-12-08 23.13 kg/m2 University of 18:55:00 [facility] Systolic blood 2019-05-04 127 mm[Hg] [facility] of pressure 04:21:00 [facility] Diastolic blood 2019-05-04 86 mm[Hg] University o f pressure 04:21:00 [facility] Heart rate 2019-05-04 99 /min [facility] of 04:21:00 [facility] Respiratory rate 2019-05-04 26 /min [facility] of 04:21:00 [facility] Body height 2019-05-04 177.8 cm University of 04:21:00 [facility] Body weight 2019-05-04 72.576 kg University of 04:21:00 [facility] BMI 2019-05-04 22.96 kg/m2 University of 04:21:00 [facility] Oxygen saturation 2019-05-04 99 /min [facility] of in Arterial blood 04:21:00 [facility] by Pulse oximetry Branch Systolic blood 2019-05-04 127 mm[Hg] [facility] of pressure 04:21:00 [facility] Diastolic blood 2019-05-04 86 mm[Hg] [place] [facility] f pressure 04:21:00 [facility] Heart rate 2019-05-04 99 /min [facility] 04:21:00 [facility] Respiratory rate 2019-05-04 26 /min [facility] 04:21:00 [facility] Body height 2019-05-04 177.8 cm University 04:21:00 [facility] Body weight 2019-05-04 72.576 kg [facility] 04:21:00 [facility] BMI 2019-05-04 22.96 kg/m2 [facility] 04:21:00 [facility] Oxygen saturation 2019-05-04 99 /min [facility] in Arterial blood 04:21:00 [facility] by Pulse oximetry [place] Procedures Procedure Date / Time Performing Clinician Source Performed [id number] 2023-03-15 00:00:00 LISA [facility] CONSENT/REFUSAL FOR 2023-03-01 19:49:30 Doctor Unassigned, No Un [facility] DIAGNOSIS AND TREATMENT Name Medical [place] TRANSTHORACIC ECHO (TTE) 2023-02-16 13:56:56 Dedrick Toth [facility] COMPLETE W/ CONTRAST Medical [facility] TROPONIN I 2023-02-16 11:32:00 Dedrick Toth [facility] COMP. METABOLIC PANEL 2023-02-16 11:32:00 Dedrick Toth [facility] ([id number]) [facility] CBC WITH DIFF 2023-02-16 11:32:00 Dedrick Toth [facility] N-TERMINAL PRO-BNP 2023-02-16 11:32:00 Dedrick Toth [facility] URINALYSIS 2023-02-15 21:18:00 Francisca Bryant [facility] HB ECG ROUTINE & RHYTHM 2023-02-15 20:15:35 Francisca Bryant [facility] XR CHEST 1 VW 2023-02-15 20:14:30 Francisca Bryant [facility] AC PANEL 21 + LACTIC 2023-02-15 20:02:00 Francisca Bryant [facility] ACID Medical Branch MAGNESIUM 2023-02-15 20:01:00 Francisca Bryant [facility] TROPONIN I 2023-02-15 20:01:00 Francisca Bryant [facility] COMP. METABOLIC PANEL 2023-02-15 20:01:[address] [facility] ([id number]) Medical Branch CBC WITH DIFF 2023-02-15 20:01:00 Francisca Bryant [facility] ASSIGNMENT OF BENEFITS 2023-02-07 19:52:07 Doctor Unassigned, No [facility] Branch CONSENT/REFUSAL FOR 2023-02-07 19:51:03 Doctor Unassigned, No [facility] [place] [facility] Name Medical Branch CONSENT/REFUSAL FOR 2023-02-04 19:51:56 Doctor Unassigned, No [facility] [place] DIAGNOSIS [facility] TREATMENT [facility] Medical Branch TROPONIN I 2023-01-31 20:21:00 Rachael Flowers [facility] COMP. METABOLIC PANEL 2023-01-31 20:21:00 Rachael Flowers [facility] ([id number]) Medical Branch ETHANOL 2023-01-31 20:21:00 Rachael Flowers [facility] CBC WITH DIFF 2023-01-31 20:21:00 Kristie [facility] N-TERMINAL PRO-BNP 2023-01-31 20:21:00 Rachael Flowers [facility] CONSENT/REFUSAL FOR 2023-01-31 18:39:05 Doctor Unassigned, No [facility] [place] [facility] Name Medical Branch CONSENT/REFUSAL FOR 2023-01-31 15:54:08 Doctor Unassigned, No [facility] [place] [facility] Name Medical Branch CONSENT/REFUSAL FOR 2023-01-31 14:29:18 Doctor Unassigned, No [facility] [place] [facility]REAT[facility] ACUTE CARE VENOUS BLOOD 2023-01-27 10:45:00 Bessie Oswald [facility] GAS [facility] TROPONIN I 2023-01-27 10:16:00 Bessie Oswald [facility] BASIC METABOLIC PANEL 2023-01-27 10:16:00 Bessie Oswald [facility] (NA, K, CL, CO2, Medical Branch GLUCOSE, BUN, CREATININE, CA) CBC WITH DIFF 2023-01-27 10:16:00 Bessie Oswald [facility] N-TERMINAL PRO-BNP 2023-01-27 10:16:00 Bessie Oswald [facility] URINALYSIS 2023-01-24 20:23:00 Stephanie Almonte [facility] CT HEAD WO CONTRAST 2023-01-24 19:38:00 Stephanie Almonte [facility] AC ABG + LACTIC ACID 2023-01-24 18:37:00 Stephanie Almonte [facility] AMMONIA, PLASMA 2023-01-24 18:19:00 Stephanie Almonte [facility] RAPID STREP SCREEN FOR 2023-01-24 18:19:00 Stephanie Almonte [facility] GROUP A [facility] COVID-19 (ID NOW RAPID 2023-01-24 18:19:00 Stephanie Almonte [facility] TESTING) [facility] TROPONIN I 2023-01-24 17:52:00 Stephanie Almonte [facility] COMP. METABOLIC PANEL 2023-01-24 17:52:00 Stephanie Almonte [facility] ([id number]) Medical Branch ETHANOL 2023-01-24 17:52:00 Stephanie Almonte [facility] CBC WITH DIFF 2023-01-24 17:52:00 Stephanie Almonte [facility] N-TERMINAL PRO-BNP 2023-01-24 17:52:00 Stephanie Almonte [facility] COMP. METABOLIC PANEL 2023-01-21 20:58:00 [id number] Branch TROPONIN I 2023-01-21 20:05:00 Singer [facility] CBC WITH DIFF 2023-01-21 20:05:00 Singer [facility] N-TERMINAL PRO-BNP 2023-01-21 20:05:00 Louis Hong [facility] AC PANEL 21 + LACTIC 2023-01-19 08:31:00 Lew [facility] ACID [facility] D-DIMER 2023-01-19 08:17:00 Lew [facility] BASIC METABOLIC PANEL 2023-01-19 08:15:00 Iza Varma [facility] (NA, K, CL, CO2, Medical Branch GLUCOSE, BUN, CREATININE, CA) CBC WITH DIFF 2023-01-19 08:15:00 Iza Varma [facility] N-TERMINAL PRO-BNP 2023-01-19 08:15:00 [facility] 2023-01-17 12:23:30 Marisol Devlin [facility] XR CHEST 1 VW 2023-01-17 11:25:05 [facility] 2023-01-17 11:04:00 Marisol Devlin [facility] COMP. METABOLIC PANEL 2023-01-17 11:04:00 Marisol Devlin [facility] ([id number]) [facility] CBC WITH DIFF 2023-01-17 11:04:00 Marisol Devlin [facility] N-TERMINAL PRO-BNP 2023-01-17 11:04:[address] [facility] COMP. METABOLIC PANEL 2022-12-26 17:23:00 Iza Varma [facility] ([id number]) [facility] XR CHEST 1 VW 2022-12-26 16:39:21 Iza Varma [facility] URINE DRUG (IMMUNOASSAY) 2022-12-26 16:29:00 Iza Varma [facility] Medical [facility] SCREEN URINALYSIS 2022-12-26 16:29:00 Iza Varma [facility] CBC WITH DIFF 2022-12-26 16:28:00 Iza Varma [facility] MAGNESIUM 2022-12-12 08:55:00 [facility]OL[facility] PAN[facility] 2022-12-12 08:55:00 [facility] (NA, K, CL, CO2, Medical Branch GLUCOSE, BUN, CREATININE, CA) LIPID PANEL 2022-12-12 08:55:00 [facility] ([id number]TOTAL Medical Branch CHOLESTEROL, TRIGLYCERIDES, HDL) N-TERMINAL PRO-BNP 2022-12-12 08:55:00 [facility] MAGNESIUM 2022-12-11 08:30:00 Dedrick Toth [facility] OSMOLALITY, SERUM OR 2022-12-11 08:30:00 Dedrick Toth [facility] FREE T4 2022-12-11 08:30:00 Dedrick Toth [facility] BASIC METABOLIC PANEL 2022-12-11 08:30:00 Dedrick Toth [facility] (NA, K, CL, CO2, Medical Branch GLUCOSE, BUN, CREATININE, CA) CBC WITH DIFF 2022-12-11 08:30:00 Dedrick Toth [facility] N-TERMINAL PRO-BNP 2022-12-11 08:30:00 Dedrick Toth [facility] OSMOLALITY URINE 2022-12-11 03:24:00 Dedrick Toth [facility] SODIUM, URINE RANDOM 2022-12-11 03:24:00 Dedrick Toth [facility] URINALYSIS 2022-12-11 01:15:00 Singer [facility] HB ECG ROUTINE & RHYTHM 2022-12-11 00:38:04 Singer [facility] CT HEAD WO CONTRAST 2022-12-11 00:32:23 Singer [facility] XR CHEST 1 VW 2022-12-11 00:29:20 Singer [facility] TROPONIN I 2022-12-11 00:08:00 Hong, [facility] COMP. METABOLIC PANEL 2022-12-11 00:08:00 Singer [facility] ([id number]) Medical Branch ETHANOL 2022-12-11 00:08:00 Singer [facility] CBC WITH DIFF 2022-12-11 00:08:00 Singer [facility] N-TERMINAL PRO-BNP 2022-12-11 00:08:00 Singer [facility] LACTIC ACID WHOLE BLOOD 2022-12-11 00:03:00 Singer [facility] AUTHORIZATION FOR 2022-12-09 05:01:00 Doctor Unassigned, No Univ [facility] RELEASE OF [facility] BASIC METABOLIC PANEL 2022-12-04 10:43:00 [facility] (NA, K, CL, CO2, Medical Branch GLUCOSE, BUN, CREATININE, CA) CBC WITH DIFF 2022-12-04 10:43:00 Ben [facility] OSMOLALITY URINE 2022-12-03 17:05:00 [facility] SODIUM, URINE RANDOM 2022-12-03 17:05:00 Sudhakar De Santiago Un iversity [facility] MAGNESIUM 2022-12-03 10:20:00 Ben [facility] BASIC METABOLIC PANEL 2022-12-03 10:20:00 [facility] (NA, K, CL, CO2, [facility] GLUCOSE, BUN, CREATININE, CA) CBC WITH DIFF 2022-12-03 10:20:00 Ben [facility] BASIC METABOLIC PANEL 2022-12-02 05:27:00 Carlo [facility]aki [facility] (NA, K, CL, CO2, Medical Branch GLUCOSE, BUN, CREATININE, CA) CONSENT/REFUSAL FOR 2022-12-02 05:08:30 Doctor Unassigned, No [facility] DIAGNOSIS AND TREATMENT [facility] HOSPITAL ADMISSION 2022-12-02 05:01:00 Doctor Unassigned, No [facility] [place] Name Medical Branch COVID-19 (ID NOW RAPID 2022-12-01 13:01:00 Ernesto Piper [facility] TESTING) Medical Branch XR CHEST 1 VW 2022-12-01 12:40:25 Marisol Devlin [facility] EKG-12 LEAD 2022-12-01 12:17:26 [facility] ARTERIAL 2022-12-01 12:06:00 Marisol Devlin [facility] BLOOD GAS [facility] TROPONIN I 2022-12-01 11:51:00 Marisol Devlin [facility] BASIC METABOLIC PANEL 2022-12-01 11:51:00 Marisol Devlin [facility] (NA, K, CL, CO2, Medical Branch GLUCOSE, BUN, CREATININE, CA) CBC WITH DIFF 2022-12-01 11:51:00 Marisol Devlin [facility] BASIC METABOLIC PANEL 2022-11-28 16:51:00 Leila Chapa [facility] (NA, K, CL, CO2, Medical Branch GLUCOSE, BUN, CREATININE, CA) URIC ACID 2022-11-28 08:14:00 [facility] THYROID STIMULATING 2022-11-28 08:14:00 Reyna Chan [facility] HORMONE [facility] BASIC METABOLIC PANEL 2022-11-28 08:14:00 Leila Chapa [facility] (NA, K, CL, CO2, Medical Branch GLUCOSE, BUN, CREATININE, CA) CBC WITH DIFF 2022-11-28 08:14:00 María Diaz Sanger o [facility] BASIC METABOLIC PANEL 2022-11-28 04:16:00 María Diaz [facility] (NA, K, CL, CO2, Medical Branch GLUCOSE, BUN, CREATININE, CA) BASIC METABOLIC PANEL 2022-11-28 00:33:00 Leila Chapa [facility] (NA, K, CL, CO2, Medical Branch GLUCOSE, BUN, CREATININE, CA) BASIC METABOLIC PANEL 2022-11-27 19:55:00 María Diaz [facility] (NA, K, CL, CO2, Medical Branch GLUCOSE, BUN, CREATININE, CA) MRSA / MSSA SCREEN BY 2022-11-27 09:21:00 María Diaz [facility] PCR, NARES [facility] OSMOLALITY, SERUM OR 2022-11-27 09:10:00 María Diaz [facility] PLASMA [facility] OSMOLALITY URINE 2022-11-27 09:04:00 María Diaz [facility] BASIC METABOLIC PANEL 2022-11-27 09:04:00 María Diaz [facility] (NA, K, CL, CO2, Medical Branch GLUCOSE, BUN, CREATININE, CA) URINE DRUG (IMMUNOASSAY) 2022-11-27 09:04:00 María Diaz [facility] DRUG [facility] SCREEN URINALYSIS 2022-11-27 09:04:00 María Diaz [facility] CREATININE, URINE RANDOM 2022-11-27 09:04:00 María [facility] SODIUM, URINE RANDOM 2022-11-27 09:04:00 María Diaz [facility] XR CHEST 1 VW 2022-11-27 06:15:54 Bessie Oswald [facility] MAGNESIUM 2022-11-27 05:33:00 María Diaz [facility] TROPONIN I 2022-11-27 05:33:00 Bessie Oswald [facility] COMP. METABOLIC PANEL 2022-11-27 05:33:00 Bessie Oswald [facility] ([id number]) [facility] ETHANOL 2022-11-27 05:33:00 Bessie Oswald [facility] CBC WITH DIFF 2022-11-27 05:33:00 Bessie Oswald [facility] GLYCOSYLATED HEMOGLOBIN 2022-11-27 05:33:00 Leila Chapa [facility] ([id number]) [facility] N-TERMINAL PRO-BNP 2022-11-27 05:33:00 Bessie Oswald [facility] HB ECG ROUTINE & RHYTHM 2022-11-27 05:31:54 Bessie Oswald [facility] COMP. METABOLIC PANEL 2022-11-19 08:44:00 Iza Varma [facility] ([id number]) Medical Branch CBC WITH DIFF 2022-11-19 08:44:00 Iza Vamra [facility] N-TERMINAL PRO-BNP 2022-11-19 08:44:00 Iza Varma [facility] BASIC METABOLIC PANEL 2022-11-11 10:52:00 Iza Eden [facility] (NA, K, CL, CO2, Medical Branch GLUCOSE, BUN, CREATININE, CA) CBC WITH DIFF 2022-11-11 10:52:[address] [facility] BASIC METABOLIC PANEL 2022-11-11 02:16:00 [facility] (NA, K, CL, CO2, Medical Branch GLUCOSE, BUN, CREATININE, CA) BASIC METABOLIC PANEL 2022-11-10 22:45:00 [facility] (NA, K, CL, CO2, Medical Branch GLUCOSE, BUN, CREATININE, CA) BASIC METABOLIC PANEL 2022-11-10 17:27:00 [facility] (NA, K, CL, CO2, Medical Branch GLUCOSE, BUN, CREATININE, CA) BASIC METABOLIC PANEL 2022-11-10 11:49:00 [facility] (NA, K, CL, CO2, Medical Branch GLUCOSE, BUN, CREATININE, CA) MAGNESIUM 2022-11-10 07:14:00 Travis Zeng [facility] BASIC METABOLIC PANEL 2022-11-10 07:14:00 [facility] (NA, K, CL, CO2, Medical Branch GLUCOSE, BUN, CREATININE, CA) CBC WITH DIFF 2022-11-10 07:14:00 Hughformerly [facility] XR CHEST 1 VW 2022-11-09 07:53:00 Marisol Devlin [facility] LIPASE 2022-11-09 07:53:00 Marisol Devlin [facility] TROPONIN I 2022-11-09 07:53:00 Marisol Devlin [facility] COMP. METABOLIC PANEL 2022-11-09 07:53:00 Marisol Devlin [facility] ([id number]) Medical [place] CBC WITH DIFF 2022-11-09 07:53:00 Marisol Devlin [facility] N-TERMINAL PRO-BNP 2022-11-09 07:53:[address] [facility] ACUTE CARE ARTERIAL 2022-11-09 07:50:00 Marisol Devlin [facility] BLOOD GAS [facility] HB ECG ROUTINE & RHYTHM 2022-11-09 07:39:47 Marisol Devlin [facility] ASSIGNMENT OF BENEFITS 2021-05-20 19:26:54 Doctor Unassigned, No [facility] POCT URINALYSIS AUTO 2020-12-18 19:04:00 Gokul Turner [facility] CT ABDOMEN PELVIS W 2020-12-12 17:25:03 Francisca Bryant [facility] CONTRAST [facility] BASIC METABOLIC PANEL 2020-12-12 16:47:[address] [facility] (NA, K, CL, CO2, Medical Branch GLUCOSE, BUN, CREATININE, CA) CBC WITH DIFF 2020-12-12 16:47:00 Francisca Bryant [facility] URINALYSIS 2020-12-12 16:47:00 Francisca Bryant [facility] NOTICE OF PRIVACY 2020-12-12 16:28:57 Doctor Unassigned, No [facility] PRACTICES [facility] CONSENT/REFUSAL FOR 2020-12-12 16:28:23 Doctor Unassigned, No [facility] DIAGNOSIS AND TREATMENT [facility] POCT URINALYSIS AUTO 2020-12-08 18:56:00 Jeanette Mcdaniel [facility] CONSENT/REFUSAL FOR 2020-12-08 18:26:17 Doctor Unassigned, No [facility] ASSIGNMENT OF BENEFITS 2020-12-08 18:25:58 Doctor Unassigned, No [facility] AUTHORIZATION FOR 2020-02-20 05:01:00 Doctor Unassigned, No [facility] RELEASE OF [facility] NOTICE OF PRIVACY 2019-05-04 04:10:29 Doctor Unassigned, No [facility] Medical [place] CONSENT/REFUSAL FOR 2019-05-04 04:10:09 Doctor Unassigned, No [facility] Encounters Start End Encounter Admission Attending Care Care Encounter Source Date/Time Date/Time Type Type Clinicians Facility Department ID 2021-07-19 Emergency [facility] [id number] Univers 08:46:33 ity of [facility] 2023-07-21 2023-07-21 Outpatient R NOMI MARY [facility] [id number] Univers 10:00:00 10:00:00 NOMI MARY i ty of [facility] 2023-07-15 2023-07-15 [facility] [id number] Univers 00:00:00 00:00:00 Management Nomi DERAS [id number] it[place] [id number] Oh dical NAL [address] [place] [address] 2023-07-08 2023-07-08 Telephone Mathew [facility] [id number] Univers 00:00:00 00:00:00 Nomi DERAS [id number] i [place] [id number] Oh dical NAL [address] [place] [address] 2023-04-22 2023-04-22 Outpatient R NOMI MARY [facility] 10 [id number] Univers 00:00:00 00:00:00 NOMI MARY i ty of [facility] 2023-04-19 2023-04-19 Outpatient R NOMI MARY [facility] 10 [id number] Univers 10:00:00 10:53:24 NOMI MARY i ty of [facility] 2023-04-19 2023-04-19 Office Mathew [facility] [id number] Univers 10:00:00 10:53:24 Visit Nomi DERAS [id number] i [place] of [place] [id number] Oh dical NAL 0[facility] 2023-04-19 2023-04-19 Patient Marika Monge 1.2.840.114 [id number] Univers 00:00:00 00:00:00 Outreach E SHAIKH [id number] [place] [id number] [facility] 403 Branch 2023-03-15 2023-03-19 Inpatient EM Rudy Xiao HCAWU INTE.02 [id number] [facility] 07:16:00 14:47:[address] [facility] 2023-03-01 2023-03-01 Office Adriano [facility] 1.2.840.114 [id number] Univers 16:30:00 17:00:00 [facility] [id number] it y of [place] 4.2.7.2.686 Nelson as JACKIE?BLEA [id number] Oh dictomy TAVORACHEL 0[address] [place] MEDICAL OFFICE [facility] 2023-03-01 2023-03-01 Outpatient R ADRIANO [facility] [id number] Univers 16:30:00 16:30:[address] [facility] 2023-03-01 2023-03-01 Orders Doctor ELDER 1.2.840.114 [id number] Univers 00:00:00 00:00:00 Only Unassigned, ASHER 350.1.13.10 ity of [place] [facility] 4.2.7.2.686 [place] as [id number] [facility] 009 [place] 2023-03-01 2023-03-01 Refill Christa [facility] 1.2.840.114 [id number] Univers 00:00:00 00:00:00 , Mily [facility] 350.1.13.10 ity of [place] 4.2.7.2.686 [place] as JACKIE?BLEA [id number] Oh dical KNEY 0[address] [place] MEDICAL OFFICE BUILDING 2023-02-21 2023-02-21 Transition GARY Frye 1.2.840.114 [id number] Univers 00:00:00 00:00:00 of Care Taylor Usman SHAIHK 350.1.13.10 it y of [place] 4.2.7.2.686 [facility] [id number] [facility] 403 Branch 2023-02-15 2023-02-18 Inpatient X ADELA [facility] PARRISH [id number] Univers 14:41:00 16:11:[address] [facility] 2023-02-15 2023-02-18 [facility] [employer] [facility] Iza Varma [facility] 1.2.840.11 [id number] Univers 14:41:00 16:11:00 Encounter Francisca Bryant 350.1.13 .10 ity of [place] Zeng [place] 4.2.7.2.686 [facility] [id number] [place] [id number] [place] 2023-02-07 2023-02-07 Emergency [facility] ERT [id number] Univers 14:30:00 16:01:[address] [facility] 2023-02-07 2023-02-07 Emergency [facility] 1.2.840.114 [id number] Univers 14:30:00 16:01:00 Pradip DERAS 350.1.13.10 ity of [place] 4.2.7.2.[address] [facility] [id number] [address] 2023-02-07 2023-02-07 Outpatient R CARL ORLANDO [facility] [id number] Univers 10:20:00 10:20:[address] [facility] 2023-02-05 2023-02-05 Emergency [facility] ERT [id number] Univers 14:53:00 16:10:[address] [facility] 2023-02-05 2023-02-05 Emergency [facility] [id number] Univers 14:53:00 16:10:00 Herminia DERAS 350.1.13.10 i ty of [place] 4.2.7.2.686 [facility] [id number] [address] 2023-02-04 2023-02-04 Emergency X MANNY, [facility] ERT [id number] Univers 15:26:00 16:25:[address] [facility] 2023-02-04 2023-02-04 Emergency [facility] 1.2.840.114 [id number] Univers 15:26:00 16:25:00 Francisca DERAS 350.1.13.10 ity of [place] [address].2.[address] [facility] [id number] [address] 2023-02-03 2023-02-03 Emergency X , [facility] ERT [id number] Univers 17:46:00 18:47:[address] [facility] 2023-02-03 2023-02-03 Emergency X , [facility] ERT [id number] Univers 17:46:00 18:47:[address] [facility] 2023-02-03 2023-02-03 Emergency [facility] [id number] Univers 17:46:00 18:47:00 Louis DERAS 350.1.13.10 i ty of [place] [address].2.[address].2.686 [facility] [id number] [address] 2023-02-03 2023-02-03 Emergency Darek, [facility] [id number] Univers 12:43:00 15:04:00 Bessie DERAS 350.1.13.10 i ty of [place] [address].2.[address].686 [facility] [id number] [address] 2023-02-02 2023-02-02 Emergency X , [facility] ERT [id number] Univers 16:49:00 18:10:[address] [facility] 2023-02-02 2023-02-02 Emergency Hong, [facility] [id number] Univers 16:49:00 18:10:00 Louis DERAS 350.1.13.10 i ty of [place] [address].2.[address].686 [facility] [id number] [address] 2023-01-31 2023-01-31 Emergency X KRISTIE, [facility] ERT [id number] Univers 13:55:00 16:50:[address] [facility] 2023-01-31 2023-01-31 Emergency X KRISTIE, [facility] ERT [id number] Univers 13:55:00 16:50:[address] [facility] 2023-01-31 2023-01-31 Emergency Kristie, [facility] 1.2.840.114 [id number] Univers 13:55:00 16:50:00 Rachael OGLESBYRADHA 350.1.13.10 i ty of [place] [address].2.[address].2.686 [facility] [id number] [address] 2023-01-31 2023-01-31 Emergency X VASUT, [facility] ERT [id number] Univers 11:11:00 12:12:[address] [facility] 2023-01-31 2023-01-31 Emergency [facility] [id number] Univers 11:11:00 12:12:00 Leobardo DERAS 350.1.13.10 i ty of [place] [address].2[address].2.686 [facility] [id number] [address] 2023-01-31 2023-01-31 Emergency [facility] [id number] Univers 09:51:00 10:16:00 [place] 350.1.13.10 i ty of [place] [address].2.[address].686 [facility] [id number] [address] 2023-01-29 2023-01-29 Emergency X [facility] ERT [id number] Univers 08:08:00 10:00:[address] [facility] 2023-01-29 2023-01-29 Emergency [facility] [id number] Univers 08:08:00 10:00:00 Herminia DERAS 350.1.13.10 i ty [facility] 4.2.7.2.686 [facility] [id number] [address] 2023-01-27 2023-01-27 Emergency X [facility] ERT [id number] Univers 04:50:00 07:03:[address] [facility] 2023-01-27 2023-01-27 Emergency [facility] [id number] Univers 04:50:00 07:03:00 Bessie DERAS 350.1.13.10 i ty of [facility] 4.2.7.2.686 [facility] [id number] [address] 2023-01-27 2023-01-27 [facility] [id number] Univers 00:00:00 00:00:00 Nomi DERAS 350.1.13.10 i ty of [facility] 4.2.7.2.686 [facility] [id number] [address] 2023-01-24 2023-01-24 Emergency X JOSE [facility] ERT [id number] Univers 12:28:00 16:16:[address] [facility] 2023-01-24 2023-01-24 [facility] [id number] Univers 12:28:00 16:16:00 Stephanie DERAS 350.1.13.10 i ty of [place] SHAFFERYVETTE 4.2.[address] [facility] [id number] [address] 2023-01-23 2023-01-23 Emergency X [facility] ERT [id number] Univers 19:02:00 20:36:[address] [facility] 2023-01-23 2023-01-23 Emergency [facility] [id number] Univers 19:02:00 20:36:00 Iza DERAS 350.1.13.10 i ty of [place] 4.2.7.2.686 [facility] [id number] [address] 2023-01-22 2023-01-22 Emergency X [facility] ERT [id number] [employer] 18:24:00 19:55:[address] [facility] 2023-01-22 2023-01-22 Emergency Varma [facility] [id number] Univers 18:24:00 19:55:00 Iza Apple BRAEDEN [id number] i ty of [place] [id number] [facility] [id number] [facility] [address] 2023-01-21 2023-01-21 Emergency [facility] [id number] Univers 14:20:00 18:14:[address] [place] [address] [facility] 2023-01-21 2023-01-21 [facility] [id number] Univers 14:20:00 18:14:00 Louis DERAS [id number] i ty [facility] 4.2.7.2.686 [facility] [phone] [facility] 084 Branch 2023-01-20 2023-01-20 Transition GARY Frye 1.2.840.114 [id number] Univers 00:00:00 00:00:00 of Care Taylor SHAIKH 350.1.13.10 it y of [place]ULIA[place] 4.2.7.[address] [place] [address] [phone] [facility] 403 Branch 2023-01-19 2023-01-19 [facility] 1.2.84 0.114 [id number] Univers 01:15:00 19:40:00 Encounter VarmaIza 350.1.13.10 ity of Agapito Hackett 4.2.7.2.686 [facility] [phone] [place] [address] Branch 2023-01-17 2023-01-17 Emergency X CLAUS [facility] ERT [id number] Univers 05:57:00 07:37:[address] [facility] 2023-01-17 2023-01-17 [facility] 1.2.954.665 [id number] Univers 05:57:00 07:37:00 Marisol DERAS 350.1.13.10 ity [facility] [place].2.7.2.[place] [phone] [address] 2023-01-17 2023-01-17 Emergency X CLAUS [facility] ERT [id number] Univers 05:57:00 07:37:[address] [facility] 2023-01-10 2023-01-10 Letter [facility] 1.2.840.114 [id number] Univers 00:00:00 00:00:00 (Out) [facility] 350.1.13.10 it y of [place] 4.2.7.2.686 Nelson as JACKIE?BLEA [phone] [address] MEDICAL OFFICE [facility] 2023-01-07 2023-01-07 Outpatient [facility] [id number] Univers 14:30:00 15:25:56 [facility] 2023-01-07 2023-01-07 Office [facility] 1.2.840.114 [id number] Univers 14:30:00 15:25:56 Visit Herminia Docitt 350.1.13.10 it y of [place] 4.2.7.2.686 [place] as JACKIE?BLEA [phone] [address] OFFICE [facility] 2022-12-26 2022-12-26 Emergency [facility] E[facility] [id number] Univers 10:50:00 14:12:00 [facility] 2022-12-26 2022-12-26 Emergency [facility] 1.2.928.563 [id number] Univers 10:50:00 14:12:00 Iza S [place] 350.1.13.10 i ty of [place].7.2.[place] [phone] [address] 2022-12-14 2022-12-14 Outpatient R NOMI MARY [facility] 10 [id number] Univers 11:30:00 11:30:00 NOMI MARY i ty of [facility] 2022-12-14 2022-12-14 Transition GARY Frye 1.2.840.114 [id number] Univers 00:00:00 00:00:00 of Care Taylor B SHAIKH 350.1.13.10 it y [place].2.[place] [phone] [facility] 403 Branch 2022-12-10 2022-12-12 Outpatient X ADELA [facility] [place] [id number] Univers 18:49:00 14:35:00 TRAVIS ity of [facility] 2022-12-10 2022-12-12 [facility] HongLouis [facility] 1.2.840.1 14 [id number] Univers 18:49:00 14:35:00 Encounter Dedrick Toth 350.1.13. 10 ity of Travis Zeng 4.2.7.2.686 [facility] [phone] [facility] 081 Branch 2022-12-10 2022-12-10 Enrrique Mary [facility] 1.2.840.114 [id number] Univers 00:00:00 00:00:00 Management Nomi DERAS 350.1.13.10 ity of [facility] 4.2.7.2.[place] [phone] [facility] 085 Branch [facility] 2022-12-10 2022-12-10 Transition GARY Caro 1.2.840.114 101 [id number] Univers 00:00:00 00:00:00 of Care Cecy SHAIKH 350.1.13.10 ity of [place] [phone] [facility] 403 [address] 2022-12-09 2022-12-09 Orders Doctor ELDER 1.2.840.114 [id number] Univers 00:00:00 00:00:00 Only Unassigned, ASHER 350.1.13.10 ity of [place] [facility] 4.2.7.2.686 Nelson as [phone] [facility] 009 Branch 2022-12-06 2022-12-06 Transition GARY Frye 1.2.840.114 101 [id number] Univers 00:00:00 00:00:00 of Care Taylor B SHAIKH 350.1.13.10 it y of [place] 4.2.7.2.686 Hugh s [phone] [facility] 403 [address] 2022-12-02 2022-12-04 Hospital Carlo Maki [facility] 1.2.8 40.114 [id number] Univers 00:13:00 12:30:00 Encounter eBny Abi [facility] 350.1.13.10 ity of Clive Contreras 4.2.7.2.686 [facility] [phone] [facility] 110 Branch (CLC) 2022-12-01 2022-12-01 Emergency U ERNESTO PIPER [facility] ERT [id number] Univers 05:32:00 09:08:00 CHUCKERNESTO Francois [facility] 2022-12-01 2022-12-01 Emergency Marisol Devlin [facility] 1.2.840 .114 [id number] Univers 05:32:00 09:08:00 Ernesto Piper 350.1.13.10 ity of Krissy Powers 4.2.7.2.686 [facility] [phone] [place] [address] Branch 2022-12-01 2022-12-01 Emergency U SUNITAERNESTO BLACKMAN [facility] ERT [id number] Univers 05:32:00 09:08:00 MAYIERNESTO [facility] 2022-11-26 2022-11-28 Outpatient X DHARMESH [facility] [place] [id number] Univers 22:55:00 13:50:[address] [facility] 2022-11-26 2022-11-28 Hospital Bessie Oswald [facility] 1.2.840.11 4 [id number] Univers 22:55:00 13:50:00 Encounter María Diaz 350.1.13.10 ity of Leila Chapa 4.2.7.2.686 [facility] [phone] [facility] 080 Branch 2022-11-19 2022-11-19 Emergency X AVANI [facility] ERT [id number] Univers 02:17:00 05:12:[address] [facility] 2022-11-19 2022-11-19 Emergency [facility] 1.2.274.524 [id number] Univers 02:17:00 05:12:00 Iza DERAS 350.1.13.10 i ty of [facility] 4.2.7.2.[place] [phone] [place] [address] Branch 2022-11-18 2022-11-18 Emergency X [facility] ERT [id number] Univers 18:52:00 20:29:[address] [facility] 2022-11-18 2022-11-18 Emergency [facility] 1.2.840.114 10 [id number] Univers 18:52:00 20:29:00 Francisca DERAS 350.1.13.10 ity of [facility] 4.2.7.2.686 [place] [phone] [place] [address] Branch 2022-11-17 2022-11-17 [facility] 1.2.512.573 [id number] Univers 00:00:00 00:00:00 Nomi DERAS 350.1.13.10 i ty of [place] 4.2.7.2.[place] [phone] [place] [address] Branch BUILDING 2022-11-12 2022-11-12 Transition GARY Frye 1.2.840.114 100 [id number] Univers 00:00:00 00:00:00 of Care Taylorrober SHAIKH 350.1.13.10 it y of [place].2.[place] [phone] [facility] 403 Branch 2022-11-09 2022-11-11 Inpatient X ADELA [facility] [place] [id number] Univers 01:32:00 13:35:[address] [facility] 2022-11-09 2022-11-11 [facility] Marisol Devlin [facility] 1.2.840. 114 [id number] Univers 01:32:00 13:35:00 Encounter Travis Zeng 350.1.13.10 ity of [facility] 4.2.7.2.[place] [phone] [place] [address] Branch 2021-05-22 2021-05-22 Telephone [facility] 1.2.984.210 [id number] Univers 00:00:00 00:00:00 Jeanette Deshpande Braeden 350.1.13.10 ity of [place].2.[place] [phone] Oh dical nal 204 [facility] 2021-05-20 2021-05-20 Can Dragger Remington, Anshu Lab Main [facility] 1.2.8 40.114 [id number] Univers 14:28:38 14:43:38 Visit Yue Gokul Braed[place] 350.1.13.10 ity of [place] 4.2.7.2.[place] [phone] [facility] 2021-05-20 2021-05-20 Outpatient R [facility] [id number] Univers 14:30:00 14:30:[address] [facility] 2021-05-20 2021-05-20 Orders Doctor ELDER 1.2.840.114 [id number] Univers 00:00:00 00:00:00 Only Unassigned, ASHER 350.1.13.10 ity of [place] [facility] 4.2.7.2.686 [place] as [phone] [address] 2021-05-20 2021-05-20 Telephone [facility] 1.2.840.114 [id number] Univers 00:00:00 00:00:00 Gokul Deras 350.1.13.10 i ty of [place].2.[place] [phone] Oh dical nal 204 [facility] 2020-12-29 2020-12-29 Office [facility] 1.2.840.114 [id number] Univers 10:12:45 11:07:51 Visit Gokul Deras 350.1.13.10 i ty of [place].7.2.[place] [phone] Oh dical formerly [facility] 204 [facility] 2020-12-29 2020-12-29 Outpatient R [facility] [id number] Univers 10:15:00 10:15:00 [facility] 2020-12-18 2020-12-18 [facility] 1.2.840.114 [id number] Univers 13:36:17 14:58:35 Visit Rm, Adc Surg Spec Procedure Braeden 3 50.1.13.10 ity of [place] 4.2.7.2.[place] [phone] Oh dic[address] 2020-12-18 2020-12-18 Outpatient R YUE [facility] [id number] Univers 14:00:00 14:00:00 [facility] 2020-12-16 2020-12-16 Outpatient R [facility] [id number] Univers 00:00:00 00:00:00 [facility] 2020-12-16 2020-12-16 Telephone [facility] 1.2.837.389 [id number] Univers 00:00:00 00:00:00 Jeanette Deras 350.1.13.10 ity of [place].2.[place] [phone] [address] 2020-12-12 2020-12-12 Emergency [facility] 1.2.840.114 [id number] [facility] 11:36:00 13:42:00 Francisca Deras 350.1.13.10 ity of [place] 4.2.7.2.686 [place] [phone] [facility] [address] [place] [address] 2020-12-12 2020-12-12 Telephone [facility] 1.2.491.139 [id number] Univers 00:00:00 00:00:00 Jeanette Deras 350.1.13.10 ity of [place].7.2.[place] [phone] Oh dical nal [address] [place] [address] 2020-12-08 2020-12-08 Office [facility] 1.2.840.114 [id number] Univers 13:28:10 14:09:14 Visit Jeanette Deras 350.1.13.10 ity of [place] 4.2.7.2.686 [place] Professio [phone] Oh dical nal 204 [facility] 2020-12-08 2020-12-08 Outpatient Manoj MCDANIEL [facility] [id number] Univers 13:30:00 13:30:[address] [facility] 2020-12-08 2020-12-08 Orders Doctor ELDER Addison.2.840.114 [id number] Univers 00:00:00 00:00:00 Only Unassigned, ASHER 350.1.13.10 ity of [place] [facility] 4.2.7.2.686 Nelson as [phone] [address] 2020-12-07 2020-12-07 Nurse ELDER Perez2.840.114 [id number] Univers 00:00:00 00:00:00 Triage Herimnia Apple ASHER 350.1.13.10 ity of HOSPITAL 4.2.7.2.686 [place] as [phone] [facility] 019 [place] 2020-06-19 2020-06-19 Outpatient Pepper, HCAWU SURG [id number] [facility] 13:30:00 13:30:[address] 2020-02-20 2020-02-20 Orders Doctor ELDER Rodas2.840.114 [id number] 00:00:00 00:00:00 Only Unassigned, ASHER 350.1.13.10 [place] [facility] 4.2.7.2.686 [id number] 009 2020-02-20 2020-02-20 Orders Doctor ELDER Rodas2.840.114 [id number] Univers 00:00:00 00:00:00 Only Unassigned, ASHER 350.1.13.10 ity of [place] [facility] 4.2.7.2.686 [place] as [phone] [address] 2019-08-28 2019-08-28 Emergency X MARQUIS [facility] ERT [id number] Univers 08:25:33 11:54:[address] [facility] 2019-08-24 2019-08-24 Emergency X SINGER [facility] ERT [id number] Univers 01:43:17 03:52:[address] [facility] 2019-05-03 2019-05-04 Emergency Huang, [facility] 1.2.567.832 [id number] 23:28:18 00:27:00 Ramesh Deras 350.1.13.10 [place] 4.2.7.2.686 [place] [phone] [facility] 2019-05-03 2019-05-04 Emergency Huang, [facility] 1.2.464.518 [id number] [facility] 23:28:18 00:27:00 Ramesh Deras 350.1.13.10 i ty of [place] 4.2.7.2.686 [facility] [place] [phone] [address] 2019-05-03 2019-05-03 Orders Doctor ELDER 1.2.840.114 [id number] 00:00:00 00:00:00 Only Unassigned, ASHER 350.1.13.10 [place] [facility] 4.2.7.2.686 [id number] 009 2019-05-03 2019-05-03 Orders Doctor ELDER 1.2.840.114 [id number] [facility] 00:00:00 00:00:00 Only Unassigned, ASHER 350.1.13.10 ity of [place] [facility] 4.2.7.2.686 [place] as [phone] [address] Results Test Description Test Time Test Comments Results Result Comments Source GLUCOSE BEDSIDE TESTING 2023-03-19 11:23:00 Test Item Value Reference Range Interpretation Comme nts GLUCOSE BEDSIDE TESTING (test code = GLUBED) 112 MG/DL 60-99 H GLUCOSE BEDSIDE [id number] 07:35:00 Test Item Value Reference Range Interpretation Comments GLUCOSE BEDSIDE TESTING (test code 170 MG/DL 60-99 H = GLUBED) VITAMIN [id number] 15:12:00 Test Item Value Reference Range Interpretation Comments VITAMIN B12 (test code = VITB12) 738 pg/mL 239-931 N FOLIC [id number] 15:12:00 Test Item Value Reference Range Interpretation Comments FOLIC ACID (test 4.9 ng/mL REFERENCE V ALUES: code = FOLR) NORMAL: 2.76 - >20 ng/ML DEFICIENT : 1.04 - 2.79 ng/ML COMPREHENSIVE METABOLIC [id number] 11:38:00 Test Item Value Reference Range Interpretation [...] the recommended for keon for GFRby the [facility] Kidney Foundation for Adults.The GFR will [...] PHOSPHATASE (test code = ALKP) CBC W/AUTO [id number] 11:24:00 Test Item Value Reference Range Interpretation [...] 0.00 K/mm3 0.0-0.1 N NRBC#) ARTERIAL BLOOD [id number] 17:25:00 Test Item Value Reference Range Interpretation [...] and readback by MAC FRANCOIS PA by LANGO at 03/15/2023 4:56: 13 PM ABG DELIVERY (test N/C code = MARY) ABG TEMPERATURE (test 37.0 C See_Comment [Auto mated message] code = TEMPA) The system [facility] generated this result transmitted ref erence range: 37. The reference range was not used to int erpret this result as normal/abnormal . ABG SITE (test code = LR SITEA) ALLENS TEST (test Y CHECK code = ALLENS) FIO2 (test code = 36 % COHBGFFIO2) [id number] 12:29:00 Test Item Value Reference Range Interpretation Comments PHOSPHOROUS (test code = PHOS) 3.5 MG/DL 2.5-4.5 N ADD ON TEST? [id number] 12:29:00 Test Item Value Reference Range Interpretation Comments MAGNESIUM (test code = MAG) 1.8 MG/DL 1.6-2.3 N ADD ON TEST? YesARTERIAL BLOOD [id number] 12:26:00 Test Item Value Reference Range Interpretation [...] % 0.4-1.5 L = METHGB) VENOUS BLOOD [id number] 11:46:00 Test Item Value Reference Range Interpretation [...] % 0.4-1.5 L = METHGB) BASIC METABOLIC [id number] 07:06:00 Test Item Value Reference Range Interpretation [...] the recommended for keon for GFRby the [facility] Kidney Foundati on for Adults.The GFR will not calculate if th e sex is unknown or if thepatient's ag e is <18 years. CREATININE (test 0.70 MG/DL 0.66-1.25 N code = CREAT) CALCIUM (test code = 7.7 MG/DL 8.4-10.2 L CA) NT PRO-BRAIN NATRIURETIC [id number] 07:06:00 Test Item Value Reference Range Interpretation [...] causes* of NT-p roBNP elevation. -------- -------- [id number] 07:06:00 Test Item Value Reference Range Interpretation Comments TROPONIN-I (test code = TROPI) < 0.012 NG/ML 0.012-0.033 L - XR CHEST [id number] 06:59:00 [facility] 1960 Sex: M Patient Name: JUAN C MONGE Unit No: [id number] EXAMS: CPT CODE: [id number] XR CHEST 1V 34195 EXAMINATION: - XR CHEST 1V HISTORY: Chest [...] SylviaAG38 Orig Print D/T: S: 03/15/2023 (0702) [facility] NAME: JUAN C MONGEmond PHYS: [place] [address] : 1960 AGE: 62 SEX: M LOC: RUCHI PHONE #: [phone] EXAM DATE: 03/15/2023 STATUS: REG ER FAX #: [phone] RADIOLOGY NO: PAGE 1 Signed ReportCBC W/O [id number] 06:42:00 Test Item Value Reference Range Interpretation [...] = 0.00 K/mm3 0.0-0.1 N NRBC#) TROPONIN [id number] 21:12:01 Test Item Value Reference Range Interpretation Comments TROPONIN I (test code = <=0.034 8372478189) OMAYRA (test code = OMAYRA) Reference (Normal) [...] biotin. Lab Interpretation Normal (test code = 78480-9) [facility]. METABOLIC PANEL (43886)2023-02-15 21:00:57 Test Item Value Reference Range Interpretation Comments NA (test code = 133 mmol/L 135-145 L 5241450341) K (test code = 4.5 mmol/L 3.5-5.0 0855119598) CL (test code = 90 mmol/L 98-108 L 0679861575) CO2 TOTAL (test code = 40 mmol/L 23-31 H 7425196140) AGAP (test code = 3 2-16 0959183673) BUN (test code = 25 mg/dL 7-23 H 6212772262) GLUCOSE (test code = 107 mg/dL 70-110 7392201013) CREATININE (test code = 0.88 mg/dL 0.60-1.25 0887087723) TOTAL BILI (test code = 1.6 mg/dL 0.1-1.1 H 5639262643) CALCIUM (test code = 8.9 mg/dL 8.6-10.6 8172325288) T PROTEIN (test code = 6.1 g/dL 6.3-8.2 L 4100765328) ALBUMIN (test code = 3.7 g/dL 3.5-5.0 7965002653) ALK PHOS (test code = 56 U/L 34-122 7854463500) ALTv (test code = 14 U/L 5-50 1742-6) AST(SGOT) (test code = 12 U/L 13-40 L 4491255416) eGFR (test code = 87.2 mL/min/1.73m2 1350620249) OMAYRA (test code = OMAYRA) Association of [...] tests). Lab Interpretation Abnormal (test code = 49311-5) [facility] 21:00:57 Test Item Value Reference Range Interpretation Comments MAGNESIUM (test code = 9530667434) 2.0 mg/dL 1.7-2.4 Lab Interpretation (test code = Normal 32283-7) [facility] WITH [id number] 20:53:39 Test Item Value Reference Range Interpretation [...] RDW-SD (test code = 50.1 fL 38.5-51.6 52666-8) RDW-CV (test code = 13.6 % 12.1-15.4 788-0) PLT (test code = 223 See_Comment [Automated 777-3) message] The sy stem which generated this result transmitted reference range : 150 - 328 10*3/ ?L. The reference r pasquale was not used to interpret this result as normal/abnormal . MPV (test code = 12.1 fL 9.8-13.0 43211-8) NRBC/100 WBC (test 0.0 See_Comment [Automat ed code = 6643783045) message] The system which generated this result transmitted reference range : 0.0 - 10.0 /100 WBCs. The refer ence range was not u sed to interpret th is result as normal/abnormal . NRBC x10^3 (test code See_Comment [Auto mated = 7996980117) message] The s ystem which generated this result transmitted reference range : 10*3/?L. The reference range was not used to interpret this result as normal/abnormal . GRAN MAT (NEUT) % 72.8 % (test code = 770-8) IMM GRAN % (test code 0.90 % = 3644657698) LYMPH % (test code = 17.7 % 736-9) MONO % (test code = 7.4 % 5905-5) EOS % (test code = 0.9 % 713-8) BASO % (test code = 0.3 % 706-2) GRAN MAT x10^3(ANC) 6.57 10*3/uL 1.99-6.95 (test code = 2279405565) IMM GRAN x10^3 (test 0.08 10*3/uL 0.00-0.06 H code = 0851013740) LYMPH x10^3 (test code 1.60 10*3/uL 1.09-3.23 = 731-0) MONO x10^3 (test code 0.67 10*3/uL 0.36-1.02 = 742-7) EOS x10^3 (test code = 0.08 10*3/uL 0.06-0.53 711-2) BASO x10^3 (test code 0.03 10*3/uL 0.01-0.09 = 704-7) Lab Interpretation Abnormal (test code = 17721-7) [facility] 21 + LACTIC [id number] 20:11:20 Test Item Value Reference Range Interpretation Comments PH (test code = 7.33 7.32-7.42 4486083267) PCO2 ERVIN (test code = 75 See_Comment H [Auto mated 2787442544) message] The sy stem which generated this result transmitted reference range : 41 - 51 mmHg. The reference range was not used to interpret this result as normal/abnormal . PO2 ERVIN (test code = 20 See_Comment L [Autom ated 2938971874) message] The sy stem which generated this result transmitted reference range : 25 - 40 mmHg. The reference range was not used to interpret this result as normal/abnormal . HCO3 ERVIN (test code = 39 See_Comment H [Auto mated 1328614377) message] The sy stem which generated this result transmitted reference range : 24 - 28 mEq/L. The reference range was not used to interpret this result as normal/abnormal . AC VBE(BEAKER) (test 9.1 mEq/L code = 9148425341) THB ERVIN (test code = 15.9 g/dL 13.5-18.0 4398595698) %O2HB ERVIN (test code = 30.0 % 52.0-63.0 L 8096376930) %COHB ERVIN (test code = 4.1 % 0.0-1.5 H 5998363552) %METHB ERVIN (test code = 0.3 % 0.4-1.5 L 4225624390) VOL%O2 ERVIN (test code = 6.7 % 6.0-12.0 9544432054) NA (test code = 137 mmol/L 135-145 6168294086) K+ (test code = 4.5 mmol/L 3.5-5.0 1955387113) AC CA IONZ (test code = 4.60 mg/dL 4.50-5.30 7135647064) GLUCOSE (test code = 113 mg/dL 70-110 H 8138035473) LACTIC ACID (test code 1.65 mmol/L 0.50-2.20 = 9510096054) Lab Interpretation Abnormal (test code = 78304-9) [facility] [id number] 21:20:05 Test Item Value Reference Range Interpretation Comments TROPONIN I (test code = 0.005 ng/mL <=0.034 0055991025) OMAYRA (test code = OMAYRA) Reference (Normal) [...] biotin. Lab Interpretation Normal (test code = 21516-9) [facility] [id number] 21:17:24 Test Item Value Reference Range Interpretation Comments NT-proBNP (test code = 712 pg/mL <=125 H 0530044434) OMAYRA (test code = OMAYRA) Biotin has been reported to cause a negative bias, interpret results relative to patient's use of biotin. Lab Interpretation (test Abnormal code = 36982-1) [facility] CenterETHANOL2023-05-15 21:13:47 ALCOHOL<10mg/dL01/31/2023 4:13 PM [facility]<10 Tdhbxcaj32-281 Toxic>100 Depression of BROILER CHEF OR COOK>400 Fatalities ReportedUnVal[facility]lingenCOMP. METABOLIC PANEL (90584) 2023-01-31 21:10:01 Test Item Value Reference Range Interpretation Comments NA (test code = 142 mmol/L 135-145 5404402498) K (test code = 4.7 mmol/L 3.5-5.0 5060345081) CL (test code = 99 mmol/L 98-108 7169997696) CO2 TOTAL (test code = 37 mmol/L 23-31 H 6168460203) AGAP (test code = 6 2-16 5442039106) BUN (test code = 30 mg/dL 7-23 H 1211061806) GLUCOSE (test code = 100 mg/dL 70-110 5819420580) CREATININE (test code = 0.61 mg/dL 0.60-1.25 2226516366) TOTAL BILI (test code = 0.6 mg/dL 0.1-1.4 8366489946) CALCIUM (test code = 8.8 mg/dL 8.6-10.6 3761596876) T PROTEIN (test code = 5.9 g/dL 6.3-8.2 L 3263796008) ALBUMIN (test code = 3.5 g/dL 3.5-5.0 6391976729) ALK PHOS (test code = 42 U/L 34-122 3562151124) ALTv (test code = 16 U/L 5-50 1742-6) AST(SGOT) (test code = 12 U/L 13-40 L 9313282060) eGFR (test code = 133.1 mL/min/1.73m2 2243546952) OMAYRA (test code = OMAYRA) Association of [...] tests). Lab Interpretation Abnormal (test code = 13470-7) [facility] WITH [id number] 20:59:58 Test Item Value Reference Range Interpretation Comments WBC (test code = 13.02 See_Comment H [Automated 2494-2) message] The system which generated this result transmit anirudh reference range : 4.20 - 10.70 10*3/?L. The reference range was not used to interpret this result as normal/abnormal . RBC (test code = 4.09 See_Comment L [Automated 799-8) message] The system which generated this result [...] (test code = 61.6 fL 38.5-51.6 H 44207-2) RDW-CV (test code = 16.2 % 12.1-15.4 H 788-0) PLT (test code = 250 See_Comment [Automated 777-3) message] The system which generated this result transmit anirudh reference range : 150 - 328 10*3/ ?L. The reference range was not u sed to interpret th is result as normal/abnormal . MPV (test code = 10.5 fL 9.8-13.0 25584-8) NRBC/100 WBC (test 0.0 See_Comment [Automat ed code = [id number]) message] The system which generated this result transmit anirudh reference range : 0.0 - 10.0 /100 WBCs. The reference range was not used to interpret this result as normal/abnormal . NRBC x10^3 (test code See_Comment [Auto mated = [id number]) message] The system which generated this result transmit anirudh reference range : 10*3/?L. The reference range was not used to interpret this result as normal/abnormal . GRAN MAT (NEUT) % 90.9 % (test code = 770-8) IMM GRAN % (test code 1.20 % = 7970968076) LYMPH % (test code = 3.9 % 736-9) MONO % (test code = 3.8 % 5905-5) EOS % (test code = 0.0 % 713-8) BASO % (test code = 0.2 % 706-2) GRAN MAT x10^3(ANC) 11.83 10*3/uL 1.99-6.95 H (test code = 7347551163) IMM GRAN x10^3 (test 0.16 10*3/uL 0.00-0.06 H code = 3013733094) LYMPH x10^3 (test code 0.51 10*3/uL 1.09-3.23 L = 731-0) MONO x10^3 (test code 0.49 10*3/uL 0.36-1.02 = 742-7) EOS x10^3 (test code = 0.06-0.53 L 711-2) BASO x10^3 (test code 0.03 10*3/uL 0.01-0.09 = 704-7) Lab Interpretation Abnormal (test code = 14866-4) [facility] [id number] 11:16:36 Test Item Value Reference Range Interpretation Comments TROPONIN I (test code = 0.002 ng/mL <=0.034 5190033860) OMAYRA (test code = OMAYRA) Reference (Normal) [...] biotin. Lab Interpretation Normal (test code = 22889-5) [facility] [id number] 11:13:18 Test Item Value Reference Range Interpretation Comments NT-proBNP (test code = 112 pg/mL <=125 1068151960) OMAYRA (test code = OMAYRA) Biotin has been reported to cause a negative bias, interpret results relative to patient's use of biotin. Lab Interpretation (test Normal code = 75811-1) [facility] (NA, K, CL, CO2, GLUCOSE, BUN, CREATININE, CA)2023-01-27 11:04:56 Test Item Value Reference Range Interpretation Comments NA (test code = 136 mmol/L 135-145 7388202936) K (test code = 4.1 mmol/L 3.5-5.0 7131161427) CL (test code = 96 mmol/L 98-108 L 9960515873) CO2 TOTAL (test code = 34 mmol/L 23-31 H 4008254017) AGAP (test code = 6 2-16 4993076714) BUN (test code = 22 mg/dL 7- 7421600822) GLUCOSE (test code = 117 mg/dL 70-110 H 0745350776) CREATININE (test code = 0.55 mg/dL 0.60-1.25 L 3772781169) CALCIUM (test code = 8.4 mg/dL 8.6-10.6 L 2488713278) eGFR (test code = 150.0 mL/min/1.73m2 6901219630) OMAYRA (test code = OMAYRA) Association of [...] tests). Lab Interpretation Abnormal (test code = 25797-1) [facility] WITH [id number] 10:38:33 Test Item Value Reference Range Interpretation Comments WBC (test code = 9.56 See_Comment [Unmfwnjna 1249-2) message] The sy stem which generated this [...] (test code = 56.7 fL 38.5-51.6 H 85799-5) RDW-CV (test code = 15.3 % 12.1-15.4 788-0) PLT (test code = 220 See_Comment [Automated 777-3) message] The sy stem which generated this result transmitted reference range : 150 - 328 10*3/ ?L. The reference r pasquale was not used to interpret this result as normal/abnormal . MPV (test code = 10.6 fL 9.8-13.0 88926-1) NRBC/100 WBC (test 0.0 See_Comment [Automat ed code = 7276136072) message] The system which generated this result transmitted reference range : 0.0 - 10.0 /100 WBCs. The refer ence range was not u sed to interpret th is result as normal/abnormal . NRBC x10^3 (test code See_Comment [Auto mated = 6479167679) message] The s ystem which generated this result transmitted reference range : 10*3/?L. The reference range was not used to interpret this result as normal/abnormal . GRAN MAT (NEUT) % 60.0 % (test code = 770-8) IMM GRAN % (test code 0.70 % = 1032702518) LYMPH % (test code = 26.5 % 736-9) MONO % (test code = 11.4 % 5905-5) EOS % (test code = 0.9 % 713-8) BASO % (test code = 0.5 % 706-2) GRAN MAT x10^3(ANC) 5.73 10*3/uL 1.99-6.95 (test code = 7072896009) IMM GRAN x10^3 (test 0.07 10*3/uL 0.00-0.06 H code = 8679621198) LYMPH x10^3 (test code 2.53 10*3/uL 1.09-3.23 = 731-0) MONO x10^3 (test code 1.09 10*3/uL 0.36-1.02 H = 742-7) EOS x10^3 (test code = 0.09 10*3/uL 0.06-0.53 711-2) BASO x10^3 (test code 0.05 10*3/uL 0.01-0.09 = 704-7) Lab Interpretation Abnormal (test code = 50673-9) [facility] CenterAMMONIA, [id number] 18:51:59 Test Item Value Reference Range Interpretation Comments AMMONIA (test code = 4004928422) 9-33 L Lab Interpretation (test code = Abnormal 05964-8) [facility] CenterAC ABG + LACTIC [id number] 18:40:53 Test Item Value Reference Range Interpretation Comments PH (test code = 2) 7.43 7.35-7.45 PCO2 (test code = 53 See_Comment H [Automate d 7194209483) message] The sy stem which generated this result transmitted reference range : 35 - 45 mmHg. The reference range was not used to interpret this result as normal/abnormal . PO2 (test code = 49 See_Comment L [Automated 7905030964) message] The sy stem which generated this result transmitted reference range : 80 - 100 mmHg. The reference range was not used to interpret this result as normal/abnormal . HCO3 (test code = 34 See_Comment H [Automate d 9831865336) message] The sy stem which generated this result transmitted reference range : 22 - 26 mEq/L. The reference range was not used to interpret this result as normal/abnormal . BE (test code = 7.8 See_Comment H [Automated 1267027934) message] The sy stem which generated this result transmitted reference range : -3.0 - 3.0 mEq/ L. The reference r pasquale was not used to interpret this result as normal/abnormal . LACTIC ACID (test code 0.92 mmol/L 0.50-2.20 = 5337850410) Lab Interpretation Abnormal (test code = 84503-0) [facility] CenterTroponin [id number] 18:28:26 Test Item Value Reference Range Interpretation Comments TROPONIN I (test code = 0.003 ng/mL <=0.034 3659929990) OMAYRA (test code = OMAYRA) Reference (Normal) [...] biotin. Lab Interpretation Normal (test code = 17396-0) [facility] CenterN[facility]AL [id number] 18:25:29 Test Item Value Reference Range Interpretation Comments NT-proBNP (test code = 376 pg/mL <=125 H 7698604304) OMAYRA (test code = OMAYRA) Biotin has been reported to cause a negative bias, interpret results relative to patient's use of biotin. Lab Interpretation (test Abnormal code = 25714-1) [facility] CenterCOMP Met[facility] Panel (67386)2023-01-24 18:24:03 Test Item Value Reference Range Interpretation Comments NA (test code = 135 mmol/L 135-145 3985247775) K (test code = 4.0 mmol/L 3.5-5.0 3019140708) CL (test code = 90 mmol/L 98-108 L 1612939623) CO2 TOTAL (test code = 43 mmol/L 23-31 H 5445719202) AGAP (test code = 2 2-16 4967548341) BUN (test code = 12 mg/dL 7-23 0112292979) GLUCOSE (test code = 92 mg/dL 70-110 2563623321) CREATININE (test code = 0.58 mg/dL 0.60-1.25 L 1343117097) TOTAL BILI (test code = 1.3 mg/dL 0.1-1.1 H 4070059978) CALCIUM (test code = 8.6 mg/dL 8.6-10.6 7433495112) T PROTEIN (test code = 6.0 g/dL 6.3-8.2 L 7375514776) ALBUMIN (test code = 3.6 g/dL 3.5-5.0 8331987139) ALK PHOS (test code = 52 U/L 34-122 0558630338) ALTv (test code = 17 U/L 5-50 1742-6) AST(SGOT) (test code = 10 U/L 13-40 L 9291249690) eGFR (test code = 141.1 mL/min/1.73m2 7675630750) OMAYRA (test code = OMAYRA) Association of [...] tests). Lab Interpretation Abnormal (test code = 89689-3) [facility] CenterETHANOL2023-05-08 18:23:38 ALCOHOL<10mg/dL01/24/2023 1:23 PM [facility]10 Zdijmmzp99-937 Toxic>100 Depression of BROILER CHEF OR COOK>400 Fatalities ReportedUnVal[facility]lingenCBC with [id number] 18:09:00 Test Item Value Reference Range Interpretation Comments WBC (test code = 7.84 See_Comment [Automated 1739-2) message] The sy stem which generated this result transmitted reference range : 4.20 - 10.70 10*3/?L. The reference range was not used to interpret this result as normal/abnormal . RBC (test code = 4.46 See_Comment [Automated 749-8) message] The sy stem which generated this [...] (test code = 59.7 fL 38.5-51.6 H 86382-6) RDW-CV (test code = 15.8 % 12.1-15.4 H 788-0) PLT (test code = 239 See_Comment [Automated 987-3) message] The sy stem which generated this result transmitted reference range : 150 - 328 10*3/ ?L. The reference r pasquale was not used to interpret this result as normal/abnormal . MPV (test code = 10.5 fL 9.8-13.0 85185-3) NRBC/100 WBC (test 0.0 See_Comment [Automat ed code = 2737613106) message] The system which generated this result transmitted reference range : 0.0 - 10.0 /100 WBCs. The refer ence range was not u sed to interpret th is result as normal/abnormal . NRBC x10^3 (test code See_Comment [Auto mated = 6472624751) message] The s ystem which generated this result transmitted reference range : 10*3/?L. The reference range was not used to interpret this result as normal/abnormal . GRAN MAT (NEUT) % 64.5 % (test code = 770-8) IMM GRAN % (test code 0.40 % = 5454299194) LYMPH % (test code = 23.1 % 736-9) MONO % (test code = 9.8 % 5905-5) EOS % (test code = 1.8 % 713-8) BASO % (test code = 0.4 % 706-2) GRAN MAT x10^3(ANC) 5.06 10*3/uL 1.99-6.95 (test code = 6771270175) IMM GRAN x10^3 (test 0.03 10*3/uL 0.00-0.06 code = 5496211544) LYMPH x10^3 (test code 1.81 10*3/uL 1.09-3.23 = 731-0) MONO x10^3 (test code 0.77 10*3/uL 0.36-1.02 = 742-7) EOS x10^3 (test code = 0.14 10*3/uL 0.06-0.53 711-2) BASO x10^3 (test code 0.03 10*3/uL 0.01-0.09 = 704-7) Lab Interpretation Abnormal (test code = 44496-6) [facility]. METABOLIC PANEL (68130)2023-01-21 21:33:50 Test Item Value Reference Range Interpretation Comments NA (test code = 136 mmol/L 135-145 5506217945) K (test code = 4.3 mmol/L 3.5-5.0 5703101351) CL (test code = 95 mmol/L 98-108 L 3444677183) CO2 TOTAL (test code = 38 mmol/L 23-31 H 2384011686) AGAP (test code = 3 2-16 8582098245) BUN (test code = 17 mg/dL 7-23 0631194240) GLUCOSE (test code = 102 mg/dL 70-110 6052555963) CREATININE (test code = 0.62 mg/dL 0.60-1.25 9921017855) TOTAL BILI (test code = 0.8 mg/dL 0.1-1.2 8705118397) CALCIUM (test code = 7.8 mg/dL 8.6-10.6 L 3611900366) T PROTEIN (test code = 4.9 g/dL 6.3-8.2 L 7445810248) ALBUMIN (test code = 3.0 g/dL 3.5-5.0 L 1277104788) ALK PHOS (test code = 45 U/L 34-122 4428838495) ALTv (test code = 13 U/L 5-50 1742-6) AST(SGOT) (test code = 11 U/L 13-40 L 3638792073) eGFR (test code = 130.6 mL/min/1.73m2 4208021078) OMAYRA (test code = OMAYRA) Association of [...] tests). Lab Interpretation Abnormal (test code = 16581-5) [facility] CenterTROP[facility]IN [id number] 21:11:45 Test Item Value Reference Range Interpretation Comments TROPONIN I (test code = 0.019 ng/mL <=0.034 9311607844) OMAYRA (test code = OMAYRA) Reference (Normal) [...] biotin. Lab Interpretation Normal (test code = 09609-1) [facility] CenterN-[facility]MINAL [id number] 21:08:47 Test Item Value Reference Range Interpretation Comments NT-proBNP (test code = 266 pg/mL <=125 H Hemol yzed 6658775289) specimen OMAYRA (test code = OMAYRA) Biotin has been reported to cause a negative bias, interpret results relative to patient's use of biotin. Lab Interpretation Abnormal (test code = 19994-1) [facility] CenterCB WITH [id number] 20:40:24 Test Item Value Reference Range Interpretation Comments WBC (test code = 6.78 See_Comment [Automated 7654-2) message] The sy stem which generated this result transmitted reference range : 4.20 - 10.70 10*3/?L. The reference range was not used to interpret this result as normal/abnormal . RBC (test code = 4.47 See_Comment [Automated 779-8) message] The sy stem which generated this [...] (test code = 60.4 fL 38.5-51.6 H 91531-2) RDW-CV (test code = 16.2 % 12.1-15.4 H 788-0) PLT (test code = 215 See_Comment [Automated 777-3) message] The sy stem which generated this result transmitted reference range : 150 - 328 10*3/ ?L. The reference r pasquale was not used to interpret this result as normal/abnormal . MPV (test code = 10.9 fL 9.8-13.0 40806-9) NRBC/100 WBC (test 0.0 See_Comment [Automat ed code = 1494866639) message] The system which generated this result transmitted reference range : 0.0 - 10.0 /100 WBCs. The refer ence range was not u sed to interpret th is result as normal/abnormal . NRBC x10^3 (test code See_Comment [Auto mated = 3362254891) message] The s ystem which generated this result transmitted reference range : 10*3/?L. The reference range was not used to interpret this result as normal/abnormal . GRAN MAT (NEUT) % 75.4 % (test code = 770-8) IMM GRAN % (test code 0.40 % = 7880147655) LYMPH % (test code = 15.3 % 736-9) MONO % (test code = 7.7 % 5905-5) EOS % (test code = 0.9 % 713-8) BASO % (test code = 0.3 % 706-2) GRAN MAT x10^3(ANC) 5.11 10*3/uL 1.99-6.95 (test code = 2608634201) IMM GRAN x10^3 (test 0.03 10*3/uL 0.00-0.06 code = 7339580536) LYMPH x10^3 (test code 1.04 10*3/uL 1.09-3.23 L = 731-0) MONO x10^3 (test code 0.52 10*3/uL 0.36-1.02 = 742-7) EOS x10^3 (test code = 0.06 10*3/uL 0.06-0.53 711-2) BASO x10^3 (test code 0.01-0.09 = 704-7) Lab Interpretation Abnormal (test code = 24918-9) [facility] CenterN[facility]inal [id number]-[id number] 08:49:53 Test Item Value Reference Range Interpretation Comments NT-proBNP (test code = 158 pg/mL <=125 H 7579066206) OMAYRA (test code = OMAYRA) Biotin has been reported to cause a negative bias, interpret results relative to patient's use of biotin. Lab Interpretation (test Abnormal code = 93622-5) [facility] CenterD-Yrzlh9886-55-58 08:44:10 Test Item Value Reference Interpretation Comments Range D-DIMER (test code = See_Comment [Autom ated 3185303800) message] The system which generated this result [...] diagnosis. Lab Interpretation Normal (test code = 20488-1) [facility] METABOLIC PANEL (NA, K, CL, CO2, GLUCOSE, BUN, CREATININE, CA)2023-01-19 08:41:13 Test Item Value Reference Range Interpretation Comments NA (test code = 134 mmol/L 135-145 L 6814582620) K (test code = 5.3 mmol/L 3.5-5.0 H 9845804433) CL (test code = 91 mmol/L 98-108 L 1162908155) CO2 TOTAL (test code = 40 mmol/L 23-31 H 1053294059) AGAP (test code = 3 2-16 0715185403) BUN (test code = 14 mg/dL 7-23 3992752348) GLUCOSE (test code = 125 mg/dL 70-110 H 4100518435) CREATININE (test code = 0.64 mg/dL 0.60-1.25 5903061808) CALCIUM (test code = 8.5 mg/dL 8.6-10.6 L 4271949673) eGFR (test code = 125.9 mL/min/1.73m2 2755346836) OMAYRA (test code = OMAYRA) Association of [...] tests). Lab Interpretation Abnormal (test code = 29560-1) [facility] WITH [id number] 08:27:33 Test Item Value Reference Range Interpretation [...] (test code = 58.4 fL 38.5-51.6 H 32084-1) RDW-CV (test code = 15.9 % 12.1-15.4 H 788-0) PLT (test code = 211 See_Comment [Automated 777-3) message] The sy stem which generated this result transmitted reference range : 150 - 328 10*3/ ?L. The reference r pasquale was not used to interpret this result as normal/abnormal . MPV (test code = 10.2 fL 9.8-13.0 85520-5) NRBC/100 WBC (test 0.0 See_Comment [Automat ed code = 8994314043) message] The system which generated this result transmitted reference range : 0.0 - 10.0 /100 WBCs. The refer ence range was not u sed to interpret th is result as normal/abnormal . NRBC x10^3 (test code See_Comment [Auto mated = 0417865259) message] The s ystem which generated this result transmitted reference range : 10*3/?L. The reference range was not used to interpret this result as normal/abnormal . GRAN MAT (NEUT) % 81.2 % (test code = 770-8) IMM GRAN % (test code 0.50 % = 9640230433) LYMPH % (test code = 10.1 % 736-9) MONO % (test code = 7.5 % 5905-5) EOS % (test code = 0.5 % 713-8) BASO % (test code = 0.2 % 706-2) GRAN MAT x10^3(ANC) 8.16 10*3/uL 1.99-6.95 H (test code = 4206926847) IMM GRAN x10^3 (test 0.05 10*3/uL 0.00-0.06 code = 8769369757) LYMPH x10^3 (test code 1.01 10*3/uL 1.09-3.23 L = 731-0) MONO x10^3 (test code 0.75 10*3/uL 0.36-1.02 = 742-7) EOS x10^3 (test code = 0.05 10*3/uL 0.06-0.53 L 711-2) BASO x10^3 (test code 0.01-0.09 = 704-7) Lab Interpretation Abnormal (test code = 27637-5) [facility] CenterNLEA [id number] 12:09:33 Test Item Value Reference Range Interpretation Comments TROPONIN I (test code = 0.004 ng/mL <=0.034 6236065486) OMAYRA (test code = OMAYRA) Reference (Normal) [...] biotin. Lab Interpretation Normal (test code = 67065-7) [facility] [id number] 12:06:16 Test Item Value Reference Range Interpretation Comments NT-proBNP (test code = 135 pg/mL <=125 H 9124031270) OMAYRA (test code = OMAYRA) Biotin has been reported to cause a negative bias, interpret results relative to patient's use of biotin. Lab Interpretation (test Abnormal code = 78748-9) [facility] Metabolic Panel (76856)2023-01-17 11:57:36 Test Item Value Reference Range Interpretation Comments NA (test code = 133 mmol/L 135-145 L 4533136293) K (test code = 5.0 mmol/L 3.5-5.0 4983006773) CL (test code = 91 mmol/L 98-108 L 8665833709) CO2 TOTAL (test code = 33 mmol/L 23-31 H 7169074883) AGAP (test code = 9 2-16 5853940281) BUN (test code = 10 mg/dL 7-23 9959014125) GLUCOSE (test code = 104 mg/dL 70-110 2765815471) CREATININE (test code = 0.63 mg/dL 0.60-1.25 6335318236) TOTAL BILI (test code = 1.2 mg/dL 0.1-1.1 H 6707889205) CALCIUM (test code = 9.0 mg/dL 8.6-10.6 6329219227) T PROTEIN (test code = 6.9 g/dL 6.3-8.2 8848508750) ALBUMIN (test code = 4.4 g/dL 3.5-5.0 4946033440) ALK PHOS (test code = 76 U/L 34-122 3848298136) ALTv (test code = 13 U/L 5-50 1742-6) AST(SGOT) (test code = 13 U/L 13-40 4585601679) eGFR (test code = 128.2 mL/min/1.73m2 8354138267) OMAYRA (test code = OMAYRA) Association of [...] tests). Lab Interpretation Abnormal (test code = 41269-8) [facility] with [id number] 11:30:52 Test Item Value Reference Range Interpretation Comments WBC (test code = 9.66 See_Comment [Automated 5626-2) message] The sy stem which generated this result transmitted reference range : 4.20 - 10.70 10*3/?L. The reference range was not used to interpret this result as normal/abnormal . RBC (test code = 5.00 See_Comment [Automated 284-8) message] The sy stem which generated this [...] (test code = 56.6 fL 38.5-51.6 H 85506-7) RDW-CV (test code = 15.4 % 12.1-15.4 788-0) PLT (test code = 261 See_Comment [Automated 777-3) message] The sy stem which generated this result transmitted reference range : 150 - 328 10*3/ ?L. The reference r pasquale was not used to interpret this result as normal/abnormal . MPV (test code = 10.4 fL 9.8-13.0 99170-9) NRBC/100 WBC (test 0.0 See_Comment [Automat ed code = 0258036050) message] The system which generated this result transmitted reference range : 0.0 - 10.0 /100 WBCs. The refer ence range was not u sed to interpret th is result as normal/abnormal . NRBC x10^3 (test code See_Comment [Auto mated = 0338943595) message] The s ystem which generated this result transmitted reference range : 10*3/?L. The reference range was not used to interpret this result as normal/abnormal . GRAN MAT (NEUT) % 58.9 % (test code = 770-8) IMM GRAN % (test code 0.40 % = 5205412209) LYMPH % (test code = 28.6 % 736-9) MONO % (test code = 10.5 % 5905-5) EOS % (test code = 0.9 % 713-8) BASO % (test code = 0.7 % 706-2) GRAN MAT x10^3(ANC) 5.69 10*3/uL 1.99-6.95 (test code = 6401285400) IMM GRAN x10^3 (test 0.04 10*3/uL 0.00-0.06 code = 7481287581) LYMPH x10^3 (test code 2.76 10*3/uL 1.09-3.23 = 731-0) MONO x10^3 (test code 1.01 10*3/uL 0.36-1.02 = 742-7) EOS x10^3 (test code = 0.09 10*3/uL 0.06-0.53 711-2) BASO x10^3 (test code 0.07 10*3/uL 0.01-0.09 = 704-7) Lab Interpretation Abnormal (test code = 47304-3) [facility] [id number] 10:20:57 Test Item Value Reference Range Interpretation Comments NT-proBNP (test code = 473 pg/mL <=125 H 4743074067) OMAYRA (test code = OMAYRA) Biotin has been reported to cause a negative bias, interpret results relative to patient's use of biotin. Lab Interpretation (test Abnormal code = 07880-4) [facility] CenterLIPID PANEL (60035)(TOTAL CHOLESTEROL, TRIGLYCERIDES, HDL)2022-12-12 10:18:39 Test Item Value Reference Range Interpretation Comments CHOL (test code = 4353169570) 133 mg/dL 120-200 HDL (test code = 0386949543) 38 mg/dL >=40 L HDLC RATIO (test code = 7295993441) 3.5 <=5.0 TRIG (test code = 7232554986) 57 mg/dL 30-170 LDL CHOL (test code = 69754-5) 84 mg/dL <=160 VLDL (test code = 7080721326) 11 mg/dL 5-60 Lab Interpretation (test code = Abnormal 36268-3) [facility] CenterMAGNESIUM2023-03-26 10:18:19 Test Item Value Reference Range Interpretation Comments MAGNESIUM (test code = 2282180508) 2.0 mg/dL 1.7-2.4 Lab Interpretation (test code = Normal 17835-5) [facility] CenterBAS[facility] METABOLIC PANEL (NA, K, CL, CO2, GLUCOSE, BUN, CREATININE, CA)2022-12-12 10:18:14 Test Item Value Reference Range Interpretation Comments NA (test code = 130 mmol/L 135-145 L 8199242365) K (test code = 3.7 mmol/L 3.5-5.0 5118429060) CL (test code = 89 mmol/L 98-108 L 4262593101) CO2 TOTAL (test code = 37 mmol/L 23-31 H 1623050338) AGAP (test code = 4 2-16 1895866448) BUN (test code = 13 mg/dL 7-23 4633625913) GLUCOSE (test code = 120 mg/dL 70-110 H 6133816717) CREATININE (test code = 0.56 mg/dL 0.60-1.25 L 8130083976) CALCIUM (test code = 8.3 mg/dL 8.6-10.6 L 6765466648) eGFR (test code = 146.9 mL/min/1.73m2 7254853790) OMAYRA (test code = OMAYRA) Association of [...] tests). Lab Interpretation Abnormal (test code = 09413-5) [facility] CenterETHANOL2023-03-25 00:54:58 ALCOHOL<10mg/dL12/10/2022 7:54 PM [facility]<10 Jkykfxrm40-403 Toxic>100 Depression of BROILER CHEF OR COOK>400 Fatalities ReportedUnVal[facility] HarlingenTROPONIN [id number] 00:50:14 Test Item Value Reference Range Interpretation Comments TROPONIN I (test code = 0.006 ng/mL <=0.034 9274336922) OMAYRA (test code = OMAYRA) Reference (Normal) [...] biotin. Lab Interpretation Normal (test code = 36348-9) [facility] [id number] 00:47:12 Test Item Value Reference Range Interpretation Comments NT-proBNP (test code = 291 pg/mL <=125 H 1247673044) OMAYRA (test code = OMAYRA) Biotin has been reported to cause a negative bias, interpret results relative to patient's use of biotin. Lab Interpretation (test Abnormal code = 56103-2) [facility] CenterCOMP. METABOLIC PANEL (07060)2022-12-11 00:41:12 Test Item Value Reference Range Interpretation Comments NA (test code = 126 mmol/L 135-145 L 0642686973) K (test code = 4.0 mmol/L 3.5-5.0 1301396212) CL (test code = 82 mmol/L 98-108 L 6130188628) CO2 TOTAL (test code = 40 mmol/L 23-31 H 6210760621) AGAP (test code = 4 2-16 0731482946) BUN (test code = 16 mg/dL 7-23 6718074494) GLUCOSE (test code = 97 mg/dL 70-110 3421802063) CREATININE (test code = 0.67 mg/dL 0.60-1.25 5821042114) TOTAL BILI (test code = 0.8 mg/dL 0.1-1.6 0104340521) CALCIUM (test code = 8.5 mg/dL 8.6-10.6 L 8609028398) T PROTEIN (test code = 5.9 g/dL 6.3-8.2 L 9429074563) ALBUMIN (test code = 3.5 g/dL 3.5-5.0 7235187358) ALK PHOS (test code = 49 U/L 34-122 5237219410) ALTv (test code = 18 U/L 5-50 1742-6) AST(SGOT) (test code = 11 U/L 13-40 L 9889810777) eGFR (test code = 119.4 mL/min/1.73m2 8634227960) OMAYRA (test code = OMAYRA) Association of [...] tests). Lab Interpretation Abnormal (test code = 88553-7) [facility] WITH [id number] 00:29:08 Test Item Value Reference Range Interpretation Comments WBC (test code = 10.15 See_Comment [Automated 3490-2) message] The sy stem [...] RDW-SD (test code = 46.7 fL 38.5-51.6 99529-4) RDW-CV (test code = 13.6 % 12.1-15.4 788-0) PLT (test code = 263 See_Comment [Automated 777-3) message] The sy stem which generated this result transmitted reference range : 150 - 328 10*3/ ?L. The reference r pasquale was not used to interpret this result as normal/abnormal . MPV (test code = 9.7 fL 9.8-13.0 L 45056-0) NRBC/100 WBC (test 0.0 See_Comment [Automat ed code = [id number]) message] The system which generated this result transmitted reference range : 0.0 - 10.0 /100 WBCs. The refer ence range was not u sed to interpret th is result as normal/abnormal . NRBC x10^3 (test code See_Comment [Auto mated = [id number]) message] The s ystem which generated this result transmitted reference range : 10*3/?L. The reference range was not used to interpret this result as normal/abnormal . GRAN MAT (NEUT) % 71.6 % (test code = 770-8) IMM GRAN % (test code 0.90 % = 2999257929) LYMPH % (test code = 17.6 % 736-9) MONO % (test code = 8.7 % 5905-5) EOS % (test code = 1.0 % 713-8) BASO % (test code = 0.2 % 706-2) GRAN MAT x10^3(ANC) 7.27 10*3/uL 1.99-6.95 H (test code = 4043554348) IMM GRAN x10^3 (test 0.09 10*3/uL 0.00-0.06 H code = 8450509671) LYMPH x10^3 (test code 1.79 10*3/uL 1.09-3.23 = 731-0) MONO x10^3 (test code 0.88 10*3/uL 0.36-1.02 = 742-7) EOS x10^3 (test code = 0.10 10*3/uL 0.06-0.53 711-2) BASO x10^3 (test code 0.01-0.09 = 704-7) Lab Interpretation Abnormal (test code = 65607-6) [facility] [id number] 00:14:48 Test Item Value Reference Range Interpretation Comments LACTIC ACID (test code = 1.30 mmol/L 0.50-2.20 0457742435) Lab Interpretation (test code = Normal 73370-4) [facility] (NA, K, CL, CO2, GLUCOSE, BUN, CREATININE, CA)2022-12-04 11:06:33 Test Item Value Reference Range Interpretation Comments NA (test code = 123 mmol/L 135-145 L 9051838778) K (test code = 3.8 mmol/L 3.5-5.0 2813945499) CL (test code = 86 mmol/L 98-108 L 6565004012) CO2 TOTAL (test code = 36 mmol/L 23-31 H 9589796035) AGAP (test code = 1 2-16 L 5411963578) BUN (test code = 22 mg/dL 7-23 2117138539) GLUCOSE (test code = 195 mg/dL 70-110 H 5446220047) CREATININE (test code = 0.76 mg/dL 0.60-1.25 9469531384) CALCIUM (test code = 8.2 mg/dL 8.6-10.6 L 7946187284) eGFR (test code = 103.3 mL/min/1.73m2 4490089763) OMAYRA (test code = OMAYRA) Association of [...] tests). Lab Interpretation Abnormal (test code = 78149-2) [facility] WITH [id number] 10:54:29 Test Item Value Reference Range Interpretation [...] RDW-SD (test code = 44.1 fL 38.5-51.6 30666-0) RDW-CV (test code = 13.6 % 12.1-15.4 788-0) PLT (test code = 247 See_Comment [Automated 777-3) message] The sy stem which generated this result transmitted reference range : 150 - 328 10*3/ ?L. The reference r pasquale was not used to interpret this result as normal/abnormal . MPV (test code = 9.5 fL 9.8-13.0 L 95382-3) NRBC/100 WBC (test 0.0 See_Comment [Automat ed code = 9759266630) message] The system which generated this result transmitted reference range : 0.0 - 10.0 /100 WBCs. The refer ence range was not u sed to interpret th is result as normal/abnormal . NRBC x10^3 (test code See_Comment [Auto mated = 7078714336) message] The s ystem which generated this result transmitted reference range : 10*3/?L. The reference range was not used to interpret this result as normal/abnormal . GRAN MAT (NEUT) % 93.0 % (test code = 770-8) IMM GRAN % (test code 0.90 % = 7817049562) LYMPH % (test code = 3.2 % 736-9) MONO % (test code = 2.9 % 5905-5) EOS % (test code = 0.0 % 713-8) BASO % (test code = 0.0 % 706-2) GRAN MAT x10^3(ANC) 7.94 10*3/uL 1.99-6.95 H (test code = 3867384500) IMM GRAN x10^3 (test 0.08 10*3/uL 0.00-0.06 H code = 0710595312) LYMPH x10^3 (test code 0.27 10*3/uL 1.09-3.23 L = 731-0) MONO x10^3 (test code 0.25 10*3/uL 0.36-1.02 L = 742-7) EOS x10^3 (test code = 0.06-0.53 L 711-2) BASO x10^3 (test code 0.01-0.09 = 704-7) Lab Interpretation Abnormal (test code = 45346-6) [facility] Metabolic Panel (NA, K, CL, CO2, GLUCOSE, BUN, CREATININE, CA)2022-12-03 10:44:53 Test Item Value Reference Range Interpretation Comments NA (test code = 126 mmol/L 135-145 L 3887629415) K (test code = 4.0 mmol/L 3.5-5.0 Slight 1611455608) hemolysis CL (test code = 89 mmol/L 98-108 L 5032013000) CO2 TOTAL (test code 32 mmol/L 23-31 H = 4305154627) AGAP (test code = 5 2-16 5404291687) BUN (test code = 15 mg/dL 7-23 Slight 7718172176) hemolysis GLUCOSE (test code = 115 mg/dL 70-110 H 7863577857) CREATININE (test code 0.63 mg/dL 0.60-1.25 = 7610137100) CALCIUM (test code = 7.7 mg/dL 8.6-10.6 L 4926137817) eGFR (test code = 128.2 mL/min/1.73m2 9487326621) OMAYRA (test code = OMAYRA) Association of [...] tests). Lab Interpretation Abnormal (test code = 19898-0) [facility] CenterMagnesium [id number] 10:44:53 Test Item Value Reference Range Interpretation Comments MAGNESIUM (test code = 4849501472) 1.6 mg/dL 1.7-2.4 L Lab Interpretation (test code = Abnormal 24321-4) [facility] with Kndnojxxyeos2835-52-77 10:39:13 Test Item Value Reference Range Interpretation Comments WBC (test code = 11.40 See_Comment H [Automated 2741-2) message] The system which generated this result transmit anirudh reference range : 4.20 - 10.70 10*3/?L. The reference range was not used to interpret this result as normal/abnormal . RBC (test code = 4.56 See_Comment [Automated 191-8) message] The system which generated this result [...] RDW-SD (test code = 45.4 fL 38.5-51.6 41349-4) RDW-CV (test code = 13.6 % 12.1-15.4 788-0) PLT (test code = 254 See_Comment [Automated 777-3) message] The system which generated this result transmit anirudh reference range : 150 - 328 10*3/ ?L. The reference range was not u sed to interpret th is result as normal/abnormal . MPV (test code = 10.2 fL 9.8-13.0 20483-7) NRBC/100 WBC (test 0.0 See_Comment [Automat ed code = 0167906192) message] The system which generated this result transmit anirudh reference range : 0.0 - 10.0 /100 WBCs. The reference range was not used to interpret this result as normal/abnormal . NRBC x10^3 (test code See_Comment [Auto mated = 4422239506) message] The system which generated this result transmit anirudh reference range : 10*3/?L. The reference range was not used to interpret this result as normal/abnormal . GRAN MAT (NEUT) % 90.0 % (test code = 770-8) IMM GRAN % (test code 0.90 % = 9925038900) LYMPH % (test code = 5.9 % 736-9) MONO % (test code = 2.8 % 5905-5) EOS % (test code = 0.2 % 713-8) BASO % (test code = 0.2 % 706-2) GRAN MAT x10^3(ANC) 10.27 10*3/uL 1.99-6.95 H (test code = 7494031450) IMM GRAN x10^3 (test 0.10 10*3/uL 0.00-0.06 H code = 4202909999) LYMPH x10^3 (test code 0.67 10*3/uL 1.09-3.23 L = 731-0) MONO x10^3 (test code 0.32 10*3/uL 0.36-1.02 L = 742-7) EOS x10^3 (test code = 0.06-0.53 L 711-2) BASO x10^3 (test code 0.01-0.09 = 704-7) Lab Interpretation Abnormal (test code = 21276-2) [facility] METABOLIC PANEL (NA, K, CL, CO2, GLUCOSE, BUN, CREATININE, CA)2022-12-02 06:20:42 Test Item Value Reference Range Interpretation Comments NA (test code = 124 mmol/L 135-145 L 4711510649) K (test code = 4.5 mmol/L 3.5-5.0 8269193186) CL (test code = 78 mmol/L 98-108 L 0541580721) CO2 TOTAL (test code = 37 mmol/L 23-31 H 0252272755) AGAP (test code = 9 2-16 2370895037) BUN (test code = 14 mg/dL 7-23 9554268319) GLUCOSE (test code = 93 mg/dL 70-110 2793632981) CREATININE (test code = 0.71 mg/dL 0.60-1.25 7625084908) CALCIUM (test code = 9.1 mg/dL 8.6-10.6 6602843744) eGFR (test code = 111.7 mL/min/1.73m2 9363244243) OMAYRA (test code = OMAYRA) Association of [...] tests). Lab Interpretation Abnormal (test code = 78197-0) [id number]32 Test Item Value Reference Range Interpretation Comments TROPONIN I (test code = 0.008 ng/mL <=0.034 3014581598) OMAYRA (test code = OMAYRA) Reference (Normal) [...] biotin. Lab Interpretation Normal (test code = 34808-8) [facility] (NA, K, CL, CO2, GLUCOSE, BUN, CREATININE, CA)2022-12-01 12:11:11 Test Item Value Reference Range Interpretation Comments NA (test code = 124 mmol/L 135-145 L 2732378189) K (test code = 4.2 mmol/L 3.5-5.0 4990957629) CL (test code = 79 mmol/L 98-108 L 6295246005) CO2 TOTAL (test code = 37 mmol/L 23-31 H 4419683312) AGAP (test code = 8 2-16 1517879013) BUN (test code = 16 mg/dL 7-23 4257520936) GLUCOSE (test code = 105 mg/dL 70-110 2203663038) CREATININE (test code = 0.67 mg/dL 0.60-1.25 1890387638) CALCIUM (test code = 8.6 mg/dL 8.6-10.6 6631349769) eGFR (test code = 119.4 mL/min/1.73m2 1015039950) OMAYRA (test code = OMAYRA) Association of [...] tests). Lab Interpretation Abnormal (test code = 07939-2) [facility] WITH [id number] 11:59:32 Test Item Value Reference Range Interpretation [...] RDW-SD (test code = 43.8 fL 38.5-51.6 70641-3) RDW-CV (test code = 13.2 % 12.1-15.4 788-0) PLT (test code = 208 See_Comment [Automated 777-3) message] The system which generated this result transmit anirudh reference range : 150 - 328 10*3/ ?L. The reference range was not u sed to interpret th is result as normal/abnormal . MPV (test code = 9.8 fL 9.8-13.0 63051-4) NRBC/100 WBC (test 0.0 See_Comment [Automat ed code = 2947375811) message] The system which generated this result transmit anirudh reference range : 0.0 - 10.0 /100 WBCs. The reference range was not used to interpret this result as normal/abnormal . NRBC x10^3 (test code See_Comment [Auto mated = 3589728213) message] The system which generated this result transmit anirudh reference range : 10*3/?L. The reference range was not used to interpret this result as normal/abnormal . GRAN MAT (NEUT) % 85.9 % (test code = 770-8) IMM GRAN % (test code 0.50 % = 8301826122) LYMPH % (test code = 6.8 % 736-9) MONO % (test code = 6.3 % 5905-5) EOS % (test code = 0.3 % 713-8) BASO % (test code = 0.2 % 706-2) GRAN MAT x10^3(ANC) 10.44 10*3/uL 1.99-6.95 H (test code = 6317512356) IMM GRAN x10^3 (test 0.06 10*3/uL 0.00-0.06 code = 5909373733) LYMPH x10^3 (test code 0.83 10*3/uL 1.09-3.23 L = 731-0) MONO x10^3 (test code 0.77 10*3/uL 0.36-1.02 = 742-7) EOS x10^3 (test code = 0.04 10*3/uL 0.06-0.53 L 711-2) BASO x10^3 (test code 0.03 10*3/uL 0.01-0.09 = 704-7) Lab Interpretation Abnormal (test code = 15558-9) [facility] METABOLIC PANEL (NA, K, CL, CO2, GLUCOSE, BUN, CREATININE, CA)2022-11-28 17:17:23 Test Item Value Reference Range Interpretation Comments NA (test code = 120 mmol/L 135-145 L 8465272938) K (test code = 4.3 mmol/L 3.5-5.0 4947677202) CL (test code = 77 mmol/L 98-108 L 2705247748) CO2 TOTAL (test code = 40 mmol/L 23-31 H 8278456539) AGAP (test code = 3 2-16 7457218365) BUN (test code = 15 mg/dL 7-23 9811691900) GLUCOSE (test code = 151 mg/dL 70-110 H 2651750774) CREATININE (test code = 0.63 mg/dL 0.60-1.25 8427042919) CALCIUM (test code = 8.2 mg/dL 8.6-10.6 L 3417532594) eGFR (test code = 128.2 mL/min/1.73m2 0861652187) OMAYRA (test code = OMAYRA) Association of [...] tests). Lab Interpretation Abnormal (test code = 49966-8) [facility] Center[facility]2023-[facility]-12 06:54:10 Test Item Value Reference Range Interpretation Comments MAGNESIUM (test code = 4854402545) 1.6 mg/dL 1.7-2.4 L Lab Interpretation (test code = Abnormal 69835-7) [facility] (NA, K, CL, CO2, GLUCOSE, BUN, CREATININE, CA)2022-11-28 01:29:53 Test Item Value Reference Range Interpretation Comments NA (test code = 120 mmol/L 135-145 L 4121174761) K (test code = 3.9 mmol/L 3.5-5.0 9429969063) CL (test code = 77 mmol/L 98-108 L 2674136071) CO2 TOTAL (test code = 36 mmol/L 23-31 H 2154449265) AGAP (test code = 7 2-16 4373388285) BUN (test code = 17 mg/dL 7-23 0877429041) GLUCOSE (test code = 85 mg/dL 70-110 0812106417) CREATININE (test code = 0.76 mg/dL 0.60-1.25 0605950345) CALCIUM (test code = 8.3 mg/dL 8.6-10.6 L 1721509478) eGFR (test code = 103.3 mL/min/1.73m2 9410938650) OMAYRA (test code = OMAYRA) Association of [...] tests). Lab Interpretation Abnormal (test code = 95123-2) [facility] METABOLIC PANEL (NA, K, CL, CO2, GLUCOSE, BUN, CREATININE, CA)2022-11-27 20:36:26 Test Item Value Reference Range Interpretation Comments NA (test code = 122 mmol/L 135-145 L 5649074938) K (test code = 3.9 mmol/L 3.5-5.0 6090575923) CL (test code = 79 mmol/L 98-108 L 9475795782) CO2 TOTAL (test code = 37 mmol/L 23-31 H 0690234262) AGAP (test code = 6 2-16 4970798275) BUN (test code = 17 mg/dL 7-23 2223555428) GLUCOSE (test code = 113 mg/dL 70-110 H 3754590076) CREATININE (test code = 0.78 mg/dL 0.60-1.25 3823093997) CALCIUM (test code = 7.8 mg/dL 8.6-10.6 L 9903640341) eGFR (test code = 100.2 mL/min/1.73m2 3849139227) OMAYRA (test code = OMAYRA) Association of [...] tests). Lab Interpretation Abnormal (test code = 74751-3) [facility] CenterGLYCOSYLATED HEMOGLOBIN (A1C)2022-11-27 18:21:30 Test Item Value Reference Range Interpretation Comments HGB A1C (test code = 5.9 % 4.0-5.7 H 4548-4) OMAYRA (test code = OMAYRA) Reference RangesNormal: <5.7%Prediabetes: 5.7 - 6.4%Diabetes: > 6.5% Lab Interpretation (test Abnormal code = 10278-8) [facility] CenterTROPONIN [id number] 06:12:58 Test Item Value Reference Range Interpretation Comments TROPONIN I (test code = 0.007 ng/mL <=0.034 8873440364) OMAYRA (test code = OMAYRA) Reference (Normal) [...] biotin. Lab Interpretation Normal (test code = 00339-1) [facility] CenterETHANOL2023-03-11 06:10:43 ALCOHOL<10mg/dL11/27/2022 12:10 AM [facility]<10 Uwefxlju27-718 Toxic>100 Depression of BROILER CHEF OR COOK>400 Fatalities ReportedCedar Park Regional Medical CenterN-TERMINAL [id number] 06:09:37 Test Item Value Reference Range Interpretation Comments NT-proBNP (test code = 311 pg/mL <=125 H 0526078763) OMAYRA (test code = OMAYRA) Biotin has been reported to cause a negative bias, interpret results relative to patient's use of biotin. Lab Interpretation (test Abnormal code = 60310-7) [facility] CenterCOMP[facility]OLIC PANEL (14039)2022-11-27 06:08:02 Test Item Value Reference Range Interpretation Comments NA (test code = 116 mmol/L 135-145 LL 4983946494) K (test code = 4.1 mmol/L 3.5-5.0 5853261520) CL (test code = 75 mmol/L 98-108 L 2961466473) CO2 TOTAL (test code = 34 mmol/L 23-31 H 3662164397) AGAP (test code = 7 2-16 4388668129) BUN (test code = 16 mg/dL 7-23 5496031852) GLUCOSE (test code = 70 mg/dL 70-110 9014455819) CREATININE (test code = 0.62 mg/dL 0.60-1.25 5492129982) TOTAL BILI (test code = 1.2 mg/dL 0.1-1.1 H 1090422974) CALCIUM (test code = 8.1 mg/dL 8.6-10.6 L 9623239831) T PROTEIN (test code = 6.3 g/dL 6.3-8.2 7788885206) ALBUMIN (test code = 3.8 g/dL 3.5-5.0 9595886750) ALK PHOS (test code = 58 U/L 34-122 1413637676) ALTv (test code = 15 U/L 5-50 1742-6) AST(SGOT) (test code = 13 U/L 13-40 7883117776) eGFR (test code = 130.6 mL/min/1.73m2 8933711085) OMAYRA (test code = OMAYRA) Association of [...] tests). Lab Interpretation Abnormal (test code = 13069-4) [facility] WITH [id number] 05:45:18 Test Item Value Reference Range Interpretation Comments WBC (test code = 9.18 See_Comment [Automated 5071-2) message] The sy stem which generated this result transmitted reference range : 4.20 - 10.70 10*3/?L. The reference range was not used to interpret this result as normal/abnormal . RBC (test code = 4.49 See_Comment [Automated 968-8) message] The sy stem which generated this [...] RDW-SD (test code = 40.1 fL 38.5-51.6 85336-0) RDW-CV (test code = 12.6 % 12.1-15.4 788-0) PLT (test code = 216 See_Comment [Automated 864-3) message] The sy stem which generated this result transmitted reference range : 150 - 328 10*3/ ?L. The reference r pasquale was not used to interpret this result as normal/abnormal . MPV (test code = 9.4 fL 9.8-13.0 L 86818-7) NRBC/100 WBC (test 0.0 See_Comment [Automat ed code = 9390567783) message] The system which generated this result transmitted reference range : 0.0 - 10.0 /100 WBCs. The refer ence range was not u sed to interpret th is result as normal/abnormal . NRBC x10^3 (test code See_Comment [Auto mated = 6812399294) message] The s ystem which generated this result transmitted reference range : 10*3/?L. The reference range was not used to interpret this result as normal/abnormal . GRAN MAT (NEUT) % 79.1 % (test code = 770-8) IMM GRAN % (test code 0.90 % = 5103245845) LYMPH % (test code = 11.8 % 736-9) MONO % (test code = 6.8 % 5905-5) EOS % (test code = 1.2 % 713-8) BASO % (test code = 0.2 % 706-2) GRAN MAT x10^3(ANC) 7.27 10*3/uL 1.99-6.95 H (test code = 7946415337) IMM GRAN x10^3 (test 0.08 10*3/uL 0.00-0.06 H code = 3618268004) LYMPH x10^3 (test code 1.08 10*3/uL 1.09-3.23 L = 731-0) MONO x10^3 (test code 0.62 10*3/uL 0.36-1.02 = 742-7) EOS x10^3 (test code = 0.11 10*3/uL 0.06-0.53 711-2) BASO x10^3 (test code 0.01-0.09 = 704-7) Lab Interpretation Abnormal (test code = 03466-8) [facility] CenterN-[facility]MINAL [id number] 09:49:54 Test Item Value Reference Range Interpretation Comments NT-proBNP (test code = 294 pg/mL <=125 H 9405396590) OMAYRA (test code = OMAYRA) Biotin has been reported to cause a negative bias, interpret results relative to patient's use of biotin. Lab Interpretation (test Abnormal code = 89103-8) [facility]. METABOLIC PANEL ([id number])2022-11-19 09:41:52 Test Item Value Reference Range Interpretation Comments NA (test code = 120 mmol/L 135-145 L 8882591393) K (test code = 4.4 mmol/L 3.5-5.0 9257691971) CL (test code = 80 mmol/L 98-108 L 9546723460) CO2 TOTAL (test code = 34 mmol/L 23-31 H 4560556023) AGAP (test code = 6 2-16 5592196696) BUN (test code = 10 mg/dL 7-23 3452441199) GLUCOSE (test code = 93 mg/dL 70-110 6341084100) CREATININE (test code = 0.77 mg/dL 0.60-1.25 8574257040) TOTAL BILI (test code = 1.1 mg/dL 0.1-1.2 2248014625) CALCIUM (test code = 8.7 mg/dL 8.6-10.6 8416948692) T PROTEIN (test code = 6.9 g/dL 6.3-8.2 0029594733) ALBUMIN (test code = 4.1 g/dL 3.5-5.0 9160073997) ALK PHOS (test code = 60 U/L 34-122 7683129020) ALTv (test code = 14 U/L 5-50 2-6) AST(SGOT) (test code = 13 U/L 13-40 3941274591) eGFR (test code = 101.7 mL/min/1.73m2 2903196547) OMAYRA (test code = OMAYRA) Association of [...] tests). Lab Interpretation Abnormal (test code = 71163-6) [facility] WITH [id number] 09:02:29 Test Item Value Reference Range Interpretation Comments WBC (test code = 8.30 See_Comment [Automated 3262-2) message] The sy stem which generated this result transmitted reference range : 4.20 - 10.70 10*3/?L. The reference range was not used to interpret this result as normal/abnormal . RBC (test code = 4.67 See_Comment [Automated 107-8) message] The sy stem which generated this [...] RDW-SD (test code = 42.3 fL 38.5-51.6 18798-1) RDW-CV (test code = 12.9 % 12.1-15.4 788-0) PLT (test code = 252 See_Comment [Automated 777-3) message] The sy stem which generated this result transmitted reference range : 150 - 328 10*3/ ?L. The reference r pasquale was not used to interpret this result as normal/abnormal . MPV (test code = 9.6 fL 9.8-13.0 L 07923-9) NRBC/100 WBC (test 0.0 See_Comment [Automat ed code = 3392466916) message] The system which generated this result transmitted reference range : 0.0 - 10.0 /100 WBCs. The refer ence range was not u sed to interpret th is result as normal/abnormal . NRBC x10^3 (test code See_Comment [Auto mated = 8956154862) message] The s ystem which generated this result transmitted reference range : 10*3/?L. The reference range was not used to interpret this result as normal/abnormal . GRAN MAT (NEUT) % 70.7 % (test code = 770-8) IMM GRAN % (test code 1.00 % = 1079436612) LYMPH % (test code = 16.0 % 736-9) MONO % (test code = 10.5 % 5905-5) EOS % (test code = 1.3 % 713-8) BASO % (test code = 0.5 % 706-2) GRAN MAT x10^3(ANC) 5.87 10*3/uL 1.99-6.95 (test code = 7029337164) IMM GRAN x10^3 (test 0.08 10*3/uL 0.00-0.06 H code = 1333801584) LYMPH x10^3 (test code 1.33 10*3/uL 1.09-3.23 = 731-0) MONO x10^3 (test code 0.87 10*3/uL 0.36-1.02 = 742-7) EOS x10^3 (test code = 0.11 10*3/uL 0.06-0.53 711-2) BASO x10^3 (test code 0.04 10*3/uL 0.01-0.09 = 704-7) Lab Interpretation Abnormal (test code = 83411-7) [facility] METABOLIC PANEL (NA, K, CL, CO2, GLUCOSE, BUN, CREATININE, CA)2022-11-10 23:42:55 Test Item Value Reference Range Interpretation Comments NA (test code = 121 mmol/L 135-145 L 1917677206) K (test code = 4.7 mmol/L 3.5-5.0 5683851874) CL (test code = 82 mmol/L 98-108 L 1466385106) CO2 TOTAL (test code = 34 mmol/L 23-31 H 5575340924) AGAP (test code = 5 2-16 0207810294) BUN (test code = 15 mg/dL 7-23 3014381437) GLUCOSE (test code = 120 mg/dL 70-110 H 8184571579) CREATININE (test code = 0.75 mg/dL 0.60-1.25 4706954923) CALCIUM (test code = 7.7 mg/dL 8.6-10.6 L 2974967241) eGFR (test code = 104.8 mL/min/1.73m2 7149811088) OMAYRA (test code = OMAYRA) Association of [...] tests). Lab Interpretation Abnormal (test code = 41144-2) [facility] METABOLIC PANEL (NA, K, CL, CO2, GLUCOSE, BUN, CREATININE, CA)2022-11-10 17:59:59 Test Item Value Reference Range Interpretation Comments NA (test code = 121 mmol/L 135-145 L 5335882085) K (test code = 4.3 mmol/L 3.5-5.0 5419757458) CL (test code = 81 mmol/L 98-108 L 1673564913) CO2 TOTAL (test code = 38 mmol/L 23-31 H 9248354994) AGAP (test code = 2 2-16 3669245176) BUN (test code = 15 mg/dL 7-23 4406051674) GLUCOSE (test code = 113 mg/dL 70-110 H 0389168924) CREATININE (test code = 0.74 mg/dL 0.60-1.25 2517296199) CALCIUM (test code = 7.5 mg/dL 8.6-10.6 L 7548196843) eGFR (test code = 106.5 mL/min/1.73m2 5421672155) OMAYRA (test code = OMAYRA) Association of [...] tests). Lab Interpretation Abnormal (test code = 44523-4) [facility] [id number] 13:08:23 Test Item Value Reference Range Interpretation Comments NT-proBNP (test code = 177 pg/mL <=125 H 9005361745) OMAYRA (test code = OMAYRA) Biotin has been reported to cause a negative bias, interpret results relative to patient's use of biotin. Lab Interpretation (test Abnormal code = 31823-3) [facility] [id number] 08:23:33 Test Item Value Reference Range Interpretation Comments TROPONIN I (test code = 0.004 ng/mL <=0.034 [id number]) OMAYRA (test code = OMAYRA) Reference (Normal) [...] biotin. Lab Interpretation Normal (test code = 05905-1) [facility] (22921)2022-11-09 08:12:09 Test Item Value Reference Range Interpretation Comments NA (test code = 123 mmol/L 135-145 L [id number]) K (test code = 4.2 mmol/L 3.5-5.0 6849530898) CL (test code = 78 mmol/L 98-108 L 9563463753) CO2 TOTAL (test code = 34 mmol/L 23-31 H 9116086588) AGAP (test code = 11 2-16 4502237242) BUN (test code = 8 mg/dL 7-23 5860420254) GLUCOSE (test code = 113 mg/dL 70-110 H 3715357998) CREATININE (test code = 0.87 mg/dL 0.60-1.25 8971453795) TOTAL BILI (test code = 1.2 mg/dL 0.1-1.1 H 8355824616) CALCIUM (test code = 8.8 mg/dL 8.6-10.6 0187220185) T PROTEIN (test code = 7.6 g/dL 6.3-8.2 7936205030) ALBUMIN (test code = 4.5 g/dL 3.5-5.0 1313720483) ALK PHOS (test code = 72 U/L 34-122 5430191871) ALTv (test code = 13 U/L 5-50 2-6) AST(SGOT) (test code = 13 U/L 13-40 3823419482) eGFR (test code = 88.3 mL/min/1.73m2 8041018502) OMAYRA (test code = OMAYRA) Association of [...] tests). Lab Interpretation Abnormal (test code = 73909-2) [facility], [id number] 08:11:14 Test Item Value Reference Range Interpretation Comments LIPASE (test code = 2666695930) 108 U/L 0-220 Lab Interpretation (test code = Normal 01130-3) [facility] CenterCB WITH [id number] 07:59:28 Test Item Value Reference Range Interpretation Comments WBC (test code = 8.95 See_Comment [Automated message] 6834-2) The system [employer] generated this result transmitted ref erence range: 4.20 - 1 0.70 10*3/?L. The re ference range was not u sed to interpret this result as normal/abnor mal. RBC (test code = 5.07 See_Comment [Automated message] 469-8) The system [employer] generated this result transmitted ref erence range: [...] RDW-SD (test code 41.1 fL 38.5-51.6 = 70332-1) RDW-CV (test code 12.5 % 12.1-15.4 = 788-0) PLT (test code = 235 See_Comment [Automated message] 777-3) The system whic h generated this result transmitted ref erence range: 150 - 32 8 10*3/?L. The re ference range was not u sed to interpret this result as normal/abnor mal. MPV (test code = 9.8 fL 9.8-13.0 65520-9) NRBC/100 WBC (test 0.0 See_Comment [Automat ed message] code = 0406650336) The syste m which generated this result transmitted ref erence range: 0.0 - 10 .0 /100 WBCs. The refer ence range was not u sed to interpret this result as normal/abnor mal. NRBC x10^3 (test See_Comment [Automated message] code = 8006388461) The syste m which generated this result transmitted ref erence range: 10*3/?L. The reference range was not used to interpr et this result as normal/abnormal . GRAN MAT (NEUT) % 56.9 % (test code = 770-8) IMM GRAN % (test 0.40 % code = 4943534741) LYMPH % (test code 29.4 % = 736-9) MONO % (test code 9.5 % = 5905-5) EOS % (test code = 3.0 % 713-8) BASO % (test code 0.8 % = 706-2) GRAN MAT 5.09 10*3/uL 1.99-6.95 x10^3(ANC) (test code = 4712827809) IMM GRAN x10^3 0.04 10*3/uL 0.00-0.06 (test code = 2379854915) LYMPH x10^3 (test 2.63 10*3/uL 1.09-3.23 code = 731-0) MONO x10^3 (test 0.85 10*3/uL 0.36-1.02 code = 742-7) EOS x10^3 (test 0.27 10*3/uL 0.06-0.53 code = 711-2) BASO x10^3 (test 0.07 10*3/uL 0.01-0.09 code = 704-7) [facility] URINALYSIS, [id number] 19:05:00 Test Item Value Reference Range Interpretation [...] U APPEAR (test code = clear 3267) [facility] URINALYSIS, [id number] 19:05:00 Test Item Value Reference Range Interpretation [...] U APPEAR (test code = clear 3267) [facility] URINALYSIS, [id number] 19:05:00 Test Item Value Reference Range Interpretation [...] U APPEAR (test code = clear 3267) [facility] [id number] 17:53:531. ?No hydronephrosis or nephrolithiasis. 2. ?Mild [...] hernia with mild circumferential distalesophageal thickening (2:16). [place] density within the distal stomach andat the [...] hernia with mild circumferential distalesophageal thickening (2:16). [place] density within the distal stomach andat the [...] small right hydrocele.5. Additional findings as above. [facility] 17:37:38 Test Item Value Reference Range Interpretation Comments APPEARANCE (test code = Cloudy Clear A 7709419816) COLOR (test code = Red Yellow A 5399871318) PH (test code = 4.8-8.0 2115279452) SP GRAVITY (test code = 1.003-1.030 7599375939) GLU U QUAL (test code = 50 mg/dL Normal A 8175202732) BLOOD (test code = 3+ Negative A 7567580447) KETONES (test code = Negative Negative 4732679129) PROTEIN (test code = 100 mg/dL Negative A 2887-8) UROBILIN (test code = Normal Normal 1485668298) BILIRUBIN (test code = Negative Negative 2303810190) NITRITE (test code = Negative Negative 1931427533) LEUK DIANELYS (test code = Negative Negative 2802947623) RBC/HPF (test code = >182 See_Comment H [Autom ated message] 1202557930) The system [employer] generated this result transmit anirudh reference range : 0 - 3 HPF. The refe rence range was not u sed to interpret th is result as normal/abnormal . WBC/HPF (test code = >182 See_Comment H [Autom ated message] 9166930012) The system [employer] generated this result transmit anirudh reference range : 0 - 5 HPF. The refe rence range was not u sed to interpret th is result as normal/abnormal . BACTERIA (test code = Moderate Negative A 2112865034) WBC CLUMPS (test code = See_Comment H [Au tomated message] 7858555309) The system [employer] generated this result transmit anirudh reference range : <=1 HPF. The refere nce range was not u sed to interpret th is result as normal/abnormal . Lab Interpretation (test Abnormal code = 84084-0) [facility] Metabolic Panel (NA, K, CL, CO2, GLUCOSE, BUN, CREATININE, CA)2020-12-12 17:13:57 Test Item Value Reference Range Interpretation Comments NA (test code = 140 mmol/L 135-145 7601471705) K (test code = 4.5 mmol/L 3.5-5.0 2215086348) CL (test code = 100 mmol/L 98-108 9228361008) CO2 TOTAL (test code = 35 mmol/L 23-31 H 4930332415) AGAP (test code = 2-16 0310817233) BUN (test code = 25 mg/dL 7-23 H 0245473539) GLUCOSE (test code = 114 mg/dL 70-110 H 8012613090) CREATININE (test code = 1.18 mg/dL 0.60-1.25 8261275701) CALCIUM (test code = 9.0 mg/dL 8.6-10.6 0747280900) eGFR Calculation mL/min/1.73m2 (Non-) (test code = 1854440476) eGFR Calculation mL/min/1.73m2 () (test code = 1650073424) OMAYRA (test code = OMAYRA) Association of [...] tests). Lab Interpretation Abnormal (test code = 05931-5) [facility] with Nnoodnpmydps3141-72-94 16:56:10 Test Item Value Reference Range Interpretation Comments WBC (test code = See_Comment [Automated 6133-2) message] The sy stem which generated this result transmitted reference range : 4.20 - 10.70 10*3/?L. The reference range was not used to interpret this result as normal/abnormal . RBC (test code = See_Comment [Automated 599-8) message] The sy stem which generated this [...] RDW-SD (test code = 42.9 fL 38.5-51.6 07830-3) RDW-CV (test code = 11.9 % 12.1-15.4 L 788-0) PLT (test code = See_Comment [Automated 054-3) message] The sy stem which generated this result transmitted reference range : 150 - 328 10*3/ ?L. The reference r pasquale was not used to interpret this result as normal/abnormal . MPV (test code = 10.8 fL 9.8-13.0 83876-2) NRBC/100 WBC (test See_Comment [Automat ed code = 4050223563) message] The system which generated this result transmitted reference range : 0.0 - 10.0 /100 WBCs. The refer ence range was not u sed to interpret th is result as normal/abnormal . NRBC x10^3 (test code <0.01 See_Comment [Auto mated = 6477396635) message] The s ystem which generated this result transmitted reference range : 10*3/?L. The reference range was not used to interpret this result as normal/abnormal . GRAN MAT (NEUT) % 63.5 % (test code = 770-8) IMM GRAN % (test code 0.40 % = 4784347245) LYMPH % (test code = 23.9 % 736-9) MONO % (test code = 6.7 % 5905-5) EOS % (test code = 4.3 % 713-8) BASO % (test code = 1.2 % 706-2) GRAN MAT x10^3(ANC) 4.27 10*3/uL 1.99-6.95 (test code = 4963046917) IMM GRAN x10^3 (test 0.03 10*3/uL 0.00-0.06 code = 4249900534) LYMPH x10^3 (test code 1.61 10*3/uL 1.09-3.23 = 731-0) MONO x10^3 (test code 0.45 10*3/uL 0.36-1.02 = 742-7) EOS x10^3 (test code = 0.29 10*3/uL 0.06-0.53 711-2) BASO x10^3 (test code 0.08 10*3/uL 0.01-0.09 = 704-7) Lab Interpretation Abnormal (test code = 81331-0) [facility] URINALYSIS, [id number] 18:56:00 Test Item Value Reference Range Interpretation [...] 3267) Lab Interpretation (test code Abnormal = 77660-8) [facility], [id number] 18:56:00 Test Item Value Reference Range Interpretation [...] 3267) Lab Interpretation (test code Abnormal = 25028-5) [facility]- XR CHEST [id number] 16:22:00 Patient Name: JUAN C MONGE Unit No: [id number] EXAMS: CPT CODE: [id number] XR CHEST 1V 83492 EXAMINATION: - XR CHEST 1V. LOCATION: B2. HISTORY: S/P ICD. COMPARISON: None. TECHNIQUE: Single AP view ofthe chest was obtained. FINDINGS: The right lung apex is excluded from the faxxa-ql-mnee. The heart is normal in size. Left AICD device is present. The lungs are clear. No acute osseous abnormality is i dentified. IMPRESSION: The right lung apex is excluded from the xbpen-dh-wkky. No acute cardiopulmonary abnormality is identified. at 1622 Reported and signed by: Latanya Marshall MD CC: Tyrell Mckeon Technologist: JOSELYN Mathews, RT(R) Transcrpt Date/Tm/Trnsp: 06/19/2020 (162) t.ANGELAR.PR7 Orig Print D/T: S: 06/19/2020 (1625) [facility] NAME: JUAN C MONGE [address] [place] [address] PHYS: [place] [address] : 1960 AGE: 59 SEX: M LOC: Z.354 A PHONE #: [phone] EXAM DATE: 06/19/2020 STATUS: ADM IN FAX #: [phone] RADIOLOGY NO: PAGE 1 Signed ReportBASIC METABOLIC [id number] 13:17:00 Test Item Value Reference Range Interpretation [...] code = MG/DL 8.7-9.7 CA) Comments to Supervisor Audit Clerks: NURSE WILL BRING SPECIMEN TO LABIs this a LINE draw? N [id number] 13:17:00 Test Item Value Reference Range Interpretation Comments MAGNESIUM (test code = MAG) MG/DL 1.6-2.3 Comments to Supervisor Audit Clerks: NURSE WILL BRING SPECIMEN TO LABIs this a LINE draw? N BASIC METABOLIC [id number] 13:17:00 Test Item Value Reference Range Interpretation [...] 9.1 MG/DL 8.4-10.2 N CA) Comments to Supervisor Audit Clerks: NURSE WILL BRING SPECIMEN TO LABIs this a LINE draw? N [id number] 13:17:00 Test Item Value Reference Range Interpretation Comments MAGNESIUM (test code = MAG) 2.2 MG/DL 1.6-2.3 N Comments to Supervisor Audit Clerks: NURSE WILL BRING SPECIMEN TO LABIs this a LINE draw? N BASIC METABOLIC [id number] 13:16:00 Test Item Value Reference Range Interpretation [...] code = MG/DL 8.7-9.7 CA) Comments to Supervisor Audit Clerks: NURSE WILL BRING SPECIMEN TO LABIs this a LINE draw? N [id number] 13:16:00 Test Item Value Reference Range Interpretation Comments MAGNESIUM (test code = MAG) MG/DL 1.6-2.3 Comments to Supervisor Audit Clerks: NURSE WILL BRING SPECIMEN TO LABIs this a LINE draw? N BASIC METABOLIC [id number] 13:14:00 Test Item Value Reference Range Interpretation [...] code = CA) MG/DL 8.7-9.7 Comments to Supervisor Audit Clerks: NURSE WILL BRING SPECIMEN TO LABIs this a LINE draw? N [id number] 13:14:00 Test Item Value Reference Range Interpretation Comments MAGNESIUM (test code = MAG) MG/DL 1.6-2.3 Comments to Supervisor Audit Clerks: NURSE WILL BRING SPECIMEN TO LABIs this a LINE draw? N BASIC METABOLIC [id number] 13:13:00 Test Item Value Reference Range Interpretation [...] code = CA) MG/DL 8.7-9.7 Comments to Supervisor Audit Clerks: NURSE WILL BRING SPECIMEN TO LABIs this a LINE draw? N [id number] 13:13:00 Test Item Value Reference Range Interpretation Comments MAGNESIUM (test code = MAG) MG/DL 1.6-2.3 Comments to Supervisor Audit Clerks: NURSE WILL BRING SPECIMEN TO LABIs this a LINE draw? N PROTHROMBIN [id number] 13:08:00 Test Item Value Reference Range Interpretation [...] dial infarction. 2. 0 - 3.0 3. Laboratory Cureman al prosthesis hear t valves, recurre nt systemic emboli sm. 3.0 - 4.5 Comments to Supervisor Audit Clerks: NURSE WILL BRING SPECIMEN TO LABPTT ACTIVATED 2020-06-19 13:08:00 Test Item Value Reference Range Interpretation Comments PTT ACTIVATED (test code = APTT) 30.8 SECONDS 25.1-36.5 N Comments to Supervisor Audit Clerks: NURSE WILL BRING SPECIMEN TO LABCBC W/AUTO [...] 0.00 K/mm3 0.0-0.1 N NRBC#) Comments to Supervisor Audit Clerks: NURSE WILL BRING SPECIMEN TO LABIs this a LINE draw? N COVID 19 Asymptomatic IH [id number] 12:14:00 Test Item Value Reference Range Interpretation [...] sample." Notes Date/Time Note Provider Source 2023-03-20 00:11:00 [id number]:11:00 [facility] ([facility] LAWNHospitalist Discharge SummaryREPORT#:[id number] REPORT STATUS: SignedDATE:03/20/23 TIME: 0011 PATIENT: JUAN C MONGE UNIT #: [id number]#: [id number] [facility]: [birth year] AGE: 62 SEX: M ATTEND: Rudy Xiao [facility] AUTHOR: Rudy Xiao MD * ALL edits or amendments must be made on the electronic/computer document * General InformationDischarge date: 03/19/23Discharge diagnosis: Acute Respiratory Failure w/ Hypoxia Hypercapnia Acute COPD Exacerbation COPD HypotensionImproved, known history of chronic hypertension. Blood pressure stable over the day. Hyponatremia Paroxysmal Atrial Fibrillation Chronic Systolic CHF s/p AIC D Macrocytic Anemia Dementia Hospital course:Acute Respiratory Failure w/ Hypoxia Hypercapnia Acute COPD Exacerbation COPDStable on morning evaluation, unchanged from prior evaluation. Patient continuesto await echocardiogram and device interrogation. He is resting comfortably but is belligerant and demanding to be sent home . He is tolerating nasal cannual oxygen without dyspnea, which he uses at home.PLAN- Cont. methylprednisolone 40mg IV q8hr- Cont. scheduled duonebs, budesonide - PRN benzonatate - Cont. incentive spirometery- Cont. to ween O2 as tolerated; uses 2L home O2 HypotensionImproved, known history of chronic hypertension. Blood pressure stable over the day.PLAN- Hold all BP meds - Cont. IV methyprednisolone, adequate for BP support, no other interventions needed at thi s time - Consider initiating midodrine for blood pressure support if hypotension recurrs- Avoid fluid bolusing, Due to CHF- Echo UNREMARKABLE Hyponatremia Suspect due to HCTZ use.PLAN- Hold HCTZ- Monitor Na Paroxysmal Atrial Fibrillation Outpatient rate control for trial fibrillation unknown at this time, takes rivaroxiban outpatient for management of embolic CVA risk. PLAN- Continuous telemetry monitoring- Cont. rivaroxiban Chronic Systolic CHF s/p AICD Sissy burton is previously known to be on JOSE inhibitor and beta chani, but he is unsure if he is still taking these medications.PLAN- Echo pending- Device interrogation pending Macrocytic AnemiaMC V 101 on admission.PLAN- B12 and Folate pending DementiaAlert and oriented to person, place, and time.PLAN- Cont. memantine, donepezil Current Tobacco UseEveryday user, smoking, 1-2 packs per day, duration unknown. 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 nicotine patch PATIENT HAS BEEN DOING WELL TODAY. VSS. AFEBRILE . BREATHING WELL ON 2 L. ECHOUNREMARKABLE. I DISCUSSED WITH DR MCKEON WHO SAID AICD INTERROGATION CAN BE DONE OUTPATIENT. HE CLEARED PT FOR DISCHARGE. PT WAS DISCHARGED IN STABLE CONDITION. Free Text DxA P NotesFree text DxA P notes: Acute Respiratory Failure w/ Hypoxi a Hypercapnia Acute COPD Exacerbation COPDStable o n morning evaluation, unchanged from prior evaluation. Patient continuesto await echocardiogram and device interrogation. He is resting comfortably but is belligerant and demanding to be sent home. He is tolerating nasa l cannual oxygen without dyspnea, which he uses at home.PLAN- Cont. methylprednisolone 40mg IV q8hr - Cont. scheduled duonebs, budesonide - PRN benzonatate - Cont. incentive spirometery- Cont. to ween O2 as tolerated; uses 2L home O2 HypotensionImproved, known history of chronic hypertension. Blood pressure stable over the day.PLAN- Hold all BP meds - Cont. IV methyprednisolone, adequate for BP support, no other interventions needed at this time - Consider initiating midodrine for blood pressure support if hypotension recurrs- Avoid fluid bolusing, Due to CHF- Echo pending Hyponatremia Suspect due to HCTZ use.PLAN- Hold HCTZ- Monitor Na Paroxysmal Atrial Fibrillation Outpatient rat e control for trial fibrillation unknown at this time, takes rivaroxiban outpatient for managemen t of embolic CVA risk. PLAN- Continuous telemetry monitoring- Cont. rivaroxiban Chronic Systolic CHF s/p AICD Patient is previously known to be o n JOSE inhibitor and beta chani, but he is unsure if he is still taking these medications.PLAN- Echo pending- Device interrogation pending Macrocytic AnemiaMCV 101 on admission.PLAN- B12 and Folate pending DementiaAlert and oriented to person, place, and time.PLAN- Cont. memantine, donepezil Current Tobacco UseEveryday user, smoking, 1-2 packs per day, duration unknown. 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 nicotine patch Code Status: Full CodeVTE Ppx: RivaroxibanDiet: Cardiac Med Rec Med RecDischarge meds:Continue taking these medications:ASPIRIN EC (ECOTRIN) 81 MG TAB.EC 81 MILLIGRAM ORAL DAILY. OMEPRAZOLE ER (PriLOSEC) 4 0 MG CAP.DR 40 MILLIGRAM ORAL DAILY. POTASSIUM [...] BEDTIME. Comments: #30 - SIG Obtained From [facility] MEMANTINE (NAMENDA) 5 MG TAB 5 MILLIGRAM ORAL DAILY. Comments: #90 - SIG Obtained From [facility] RIVAROXABAN (XARELTO) 15 MG TAB 15 MILLIGRAM ORAL DAILY. Comments: #30 - SIG Obtained From [facility] CARVEDILOL (COREG) 3.125 M G TAB 3.125 MILLIGRAM ORAL TWICE DAILY. Comments: #60 - SIG Obtained From [facility] Start taking the following new medications:levoFLOXacin (LEVAQUIN ) 500 MG TAB 500 MILLIGRAM ORAL DAILY. Days = 4 Qt y = 4 No Refills NICOTINE (NICODERM 21 MG) 21 MG/2 4 HOUR PATCH 21 MILLIGRAM TRANSDERMAL DAILY. Qty = 14 No Refills FLUTICASONE PROPIONATE/SALMETEROL (ADVAIR DISKUS 250/50 MCG/ACT) 250 MCG-50 MCG/DOSE DISK.W.DEV 2 PUFF INHALATION RT - TWICE DAILY. Qty = 14 No Refills methylPREDNISolone (MEDROL 4 MG DOSEPAK) 4 MG TAB.DS.PK 4 MILLIGRAM ORAL DIRECTED. Qty = 1 No Refills ObjectiveVS/I OLast Documented: Result Date Time Temp 36.4 03/19 1123 Pulse Ox 100 07/ 1000 B/ P 138/69 07/ 1000 B/P Mean 97 07/ 1000 Pulse 9 3 07/ 1000 Resp 8 07/ 1000 O2 Delivery Nasal cannula 03/19 0800 O2 Flow Rate 2 07/ 0800 FiO 2 40 / 0718 24 hour I O ending at 0700: 03/20 0700 07 1900 Intake Total 1547.00 Output Tota l Balance 1547.00 Intake, IV 420.00 Intake, Oral 1127 Number Voids 1 Head/Eyes: atraumatic, EOMI, normocephalicENT: poor dentition, moist mucosal membranesNeck: full range of motion, supple/no meningismus, no JVDCardiovascular: irregular rhythm, normal capillary refill, normal heart soundsRespiratory: clear to auscultation, no distressAbdomen: non-tender, softGenitourinary: no urinary catheterExtremities: moves all, no calf tenderness, no edemaMusculoskeletal: normal inspection, painless range of motionNeuro/BROILER CHEF OR COOK: alert, normal speechSkin: dryPsychiatry: abnl judgment/insight, normal affect, normal mood, no hallucinations ResultsFindings/Data:Laboratory Tests: 03/19 03/19 1121 0733 Chemistry POC Glucose (60 - 99 MG/DL) 112 H 170 H Results: MRI results reviewed Discharge Instructions PCPDischarge to: Home/Self CareAdditional Discharge Routines: PCP Follow-Up, Container Packer Operator Follow-UpDiet: Cardiac Follow-up AppointmentsPCP follow-up: PCP: Undefined Provider PCP follow up timeframe: In 5 days Special instructions:CALL PCP FOR APPOINTMENTConsulting provider 1: Provider 1: Omid Tenorio MD Cardiology Specialty: CardiologyInterventional Consult follow up timeframe: In 5 days Special instructions:CALL FOR APPOINTMENTConsulting provider 2: Provider 2: Sanaz Gregory MD Specialty: Pulmonary Disease Follow up timeframe: In 1-2 weeks Special instructions:CALL FOR APPOINTMENT Quality: Discharge Current MedicationsCurrent medication review:I attest that the foregoing medication list in the medical record is true, accurate, and complete to the best of my knowledge. BMI Screening > 25 or < 18.5BMI status/follow-up: nml BMI,no counseling department chair needed Electronically Signed by Rudy Xiao MD on 3 at 0016 RPT #:[id number] OF REPORTDSDischarge skasvug6213-19-16F08:11:00Z.[id number] v ailable for patient [id number]:16:42 2023-03-19 12:19:00 [id number]:19:00 [facility] ([facility] LAWNCardiology Progress NoteREPORT#:[id number] REPORT STATUS: SignedDATE:03/19/23 TIME: 1219 PATIENT: JUAN C MONGE UNIT #: [id number]#: [id number] [facility] [birth year] AGE: 62 SEX: M ATTEND: Rudy Xiao AUTHOR: Tyrell Mckeon MD * ALL edits or amendments must be made on the electronic/computer document * SubjectiveChief complaint:DyspneaPatient reports:No: chest pain, palpitations, shortness of breath. Objective GeneralVS/I O:24 hour I O ending at 0700: / 0700 03/18 1900 Intake Total 2600.00 Output Total 400 Balance 2200.00 Intake, IV 1700.00 Intake, Oral 900 Number 1 Bowel Movements Numbe r Voids 2 Output, Urine 400 Vital Signs: Date Time Temp Pulse Resp B/P B/P Pulse O2 O2 Flow FiO2 Mean Ox Delivery Rate 03/19 1123 97.5 03/19 1000 93 8 138/69 97 100 03/19 0900 81 19 130/66 92 99 03/19 0800 Nasal 2 cannula 03/19 0800 96 18 129/63 90 96 / 0735 97.7 03/19 0718 99 Nasal 5 40 cannula 03/19 0701 122 29 160/72 104 95 03/19 0600 88 19 134/60 96 07/01 0500 89 20 134/62 95 07/01 0400 91 17 139/64 98 07/01 0318 103 23 143/67 97 07/01 0100 102 21 148/86 98 07/01 0000 97.7 07/01 0000 101 20 152/77 97 06/3 0 2321 115 30 135/78 03/18 2300 Nasal [...] Weight (lb): Weight (oz): Weight (kg): 68.182 Medications:Active Meds + DC'd Last 24 HrsHydroxyzine HCl (ATARAX) 10 MG Q6H PRN PRN [...] Lozenge) 1 TAB Q4H PRN PRN MM (CKD) Sodium Chloride (SODIUM CHLORIDE 0.9%) 1,000 ML Q13H IV Benzonatate (TESSALON PERLE) 100 MG TID PRN PRN PO Guaifenesin/Dextromethorphan (ROBITUSSIN-DM) 10 ML Q4H PRN PRN PO Nicotine (NICODERM) 21 MG DAILY TRANSDERM (CKD) Methylprednisolone Sodium Succinate (SOLU-Medrol) 40 MG Q8HR IV Acetaminophen (TYLENOL EXTRA STRENGTH TAB) 500 M G Q4H PRN PRN PO Al Hydrox/Mg Hydrox/Simethicone (MAALOX PLUS) 30 ML Q6H PRN PRN PO Docusate Sodium (COLACE) 100 MG BID PRN PRN PO Melatonin (MELATONIN) 3 MG BEDTIME PRN PRN PO Ondansetron HCl (ZOFRAN) 4 MG Q6H PRN PRN IV Albuterol/Ipratropium (DUONEB 2.5-0.5 MG/3 ML SOLN) 3 ML RTQ6H INH Budesonide (Pulmicort) 0.5 MG RTQ12H NEB Physical ExamGeneral appearance: alert, awake, orientedHead/Eyes: atraumatic, normocephalicENT: moist mucosal membranesNeck: n o JVDCardiovascular: CV assessment: regular rate and rhythmRespiratory: decreased breath sounds, no distressLower extremity: LE assessment: no edemaMusculoskeletal: full range of motionNeuro/BROILER CHEF OR COOK: alert, oriented X 3, CN II-XII intactSkin: dry, intactPsychiatry: normal affect , normal judgment/insight, normal mood ResultsFindings/Data:Laboratory Tests 03/19 07/0 1 1121 0733 Chemistry POC Glucose (60 - 99 MG/DL) 112 H 170 H Diagnosis, Assessment Plan Free Text DxA P NotesFree Text DxA P Notes:IMPRESSION:1. Chronic systolic heart failure.2. Status post Serrano automated implantable cardioverter defibrillator.3. Dyspnea.4. Coronary artery disease.5. Hypertension.6. Dyslipidemia. RECOMMENDATIONS: Continue current medical therapy. Oxygen support as needed. Cardiac stabl e for discharge. f/u with Dr. Tenorio as outpatient. at [address] [place] [address] #:[phone] OF REPORTPRProgress [id number]:19:00Z.[id number] l able for patient [id number]:02:48 2023-03-18 15:47:00 [id number] [address] PATIENT NAME: JUAN C MONGE ADMIT DATE: 03/15/23ACCOUNT NO: [id number] JULY NO: Z.347 AGE: 62 REPORT TYPE: ECHOCARDIOGRAM SEX: M ADMITTING PHYSICIAN:Rudy Xiao MD ATTENDING PHYSICIAN:Rudy Xiao MD *[place], [place] [address]Phone Transthoracic Echocardiogram Patient: Juan C MongeStudy Date: 03/18/2023 BP: 122 / 66 [id number] 1960 Age: 62 Height: 70 in / 177.8 cmAccession#: [id number] Gender: M Weight: 149.7 lb / 68 kgBMI/BSA: 21.5 kg/m 2 / 1.83 m 2 *Ordering Physician: * Omid Tenorio MD *Interpreting Physician: * Omid Tenorio MD*Loading And Unloading Supervisor: * Vick Aleman - Indications: CAD. - Study data: Transthoracic echocardiogram. Procedure: Transthoracicechocardiography was performed. Images were obtained using a [employer] cardiacTVShow Time d machine. Image quality was adequate. M-mode, complete 2D,complete spectral Doppler, and color Doppler. Location: Bedside.Patient status: Inpatient. Patient room number: 347. Study status:Routine. - Findings Left ventricle: The cavity size is normal. Wall thickness is normal.Systolic function is normal. The estimate d ejection fraction is 60-64%.Left ventricular diastolic function parameters are normal.Right ventricle: Well visualized. The cavity size is normal. Wallthickness is normal. Pacer wire note d in the right ventricle. Systolic PATIENT NAME: JUAN C MONGE function is normal.Ventricular septum: Well visualized.Left atrium: Well visualized. The atrium is normal in size.Right atrium: Well visualized. The atrium i s normal in size. Pacer wirenoted in right atrium.Atrial septum: Well visualized. No defect or patent foramen ovale isidentified.Aorta: The aorta is well visualized.Aortic valve: Well visualized. The valve is trileaflet. The leafletsare normal thickness. There is no evidence of stenosis. There is nosignificant regurgitation.Mitral valve: Well visualized. The leaflets are normal thickness.There is no evidence of stenosis. There is mild regurgitation.Tricuspid valve: Well visualized. The leaflets are normal thickness.There is no evidence of stenosis. There is physiologic regurgitation.Pulmonic valve: Well visualized. The leaflets are normal thickness.There is no evidence of stenosis. There is no significantregurgitation.Pericardium: There is n o pericardial effusion. No evidence of pleuralflui d accumulation.Systemic veins:Inferior vena cava: The vessel is normal in size. - Measurements Left ventricle Value Ref KVNG, LAX [...] 2 mm Hg --------- SV 68 ml -------- - Qs 6.43 L/min --------- Qs/bsa 3.5 L/(min-m 2) --------- SV/bsa 37 ml/m 2 --------- Ventricular septum Value Ref IVS, ED 1.2 cm 0.6 - 1.0 IVS, ES 1.4 cm --------- PATIENT NAME: JUAN C MONGE Right ventricle Value Re f KVNG, LAX 2.4 cm --------- RVOT Value [...] --------- coapt Decel time 228 ms --------- Nely n grad, D 2.3 mm Hg --------- Peak grad, D 5.6 mm Hg --------- Peak E/A ratio 0.89 --------- MR peak v 2.46 m/sec --------- Pulmonic valve Valu e Ref MS v, ED 0.94 m/sec --------- Aortic root Value Ref Root diam 3.4 cm <4.0 Root diam, ED 2.44 cm --------- MM - Conclusions Summary: 1. Left ventricle: The cavity size is normal. Wall thickness is normal. PATIENT NAME: JUAN C MONGE Systolic function is normal. The estimated ejection fraction is 60-64%. Left ventricular diastolic function parameters are normal.2. Atrial septum: No defec t or patent foramen ovale is identified. Prepared and electronically signed by Omid Tenorio MD03/18/2023 15:47 at 1547 PATIENT NAME: JUAN C MONGE :47: 0 0Z.[id number] for patient [id number]:48:19 2023-03-18 10:16:00 [id number]:16:00 [facility] ([facility] LAWNHospitalist Progress NoteREPORT#:[id number] REPORT STATUS: SignedDATE:03/18/23 TIME: 1016 PATIENT: JUAN C MONGE UNIT #: [id number]#: [id number] [facility] [birth year] AGE: 62 SEX: M ATTEND: Rudy Xiao AUTHOR: Jenny Meyers MD R2 * ALL edits or amendments must be made on the electronic/computer document * Jenny Meyers 03/18/23 1016:SubjectiveChief complaint:SOB, hypotensionHPI:62 yo M with PMH of COPD on 2L NC , Hypertension, Anxiety, Systolic CHF s/p AICD,Tanika b on xarelto, CVA and dementia presented as a transfer from [facility] for evaluatio n of shortness of breath. Pt reports worsening SOB over the past few days. Associated with productive cough and nausea in the past day. Pt reports having low BP last week and was seen in the ED for this with no medication changes done. Pt unsure of his exact medications but states he takes BP meds. Pt was given steroids, nen tx, pepcid and levaquin prior to transfer here. Hypotensive on presentation but improved with fluids. Labs remarkable for hyponatremia, hyperkalemia, elevated bicarb and anemia with high MCV. Pt was requiring bipap at previous facility but took it off on the way here and was on 6L NC in ED. Pt's blood gases showing marked hypercapnia so placed back on bipap. Pt has been admitted for further evaluation and management. Comments:- Awake, alert, conversational- Tolerating PO, tolerating supplemental O2 via nasal cannula- Ambulating with assistance- Denie s fever/chills, nausea/vomiting, diarrhea, worsening SOB, chest pain, diaphoresis, dizziness- Wants to go home Review of SystemsRespiratory:Reports: productive cough (sputum), SOB, wheezing. Denies: ANNE (dyspnea on exertion), hemoptysis, non productive cough, parox nocturnal dyspnea, pleurisy, pleuritic pain, pneumonia. All systems rev neg: except as noted Objective GeneralVS/I O:Vital Signs: Date Time Temp Pulse Resp B/P B/P Pulse O2 O2 Flow FiO2 Mean Ox Delivery Rate 03/18 0800 76 18 122/64 87 94 03/18 0725 98.4 03/18 0705 99 Nasa l 4 36 cannula 03/18 0700 68 24 [...] 03/17 1816 88 24 125/71 92 97 02/18 9 1800 84 20 96 03/17 1700 74 18 97 03/17 1600 78 7 97 03/17 1500 68 19 100 03/17 1400 84 23 98 02/18 9 1300 73 18 100 03/17 1200 88 22 97 03/17 1134 98.3 03/17 1100 70 18 98 24 hour I O ending at 0700: 03/18 0700 03/17 1900 Intake Total 900.00 Output Total 550 Balance 350.00 Intake, IV 900.0 0 Output, Urine 550 PATIENT WEIGHT: Weight (lb): Weight (oz): Weight (kg): 68.182 Physical ExamGeneral appearance: alert, awake, no acute distress, conversationalHead/Eyes: atraumatic, EOMI, normocephalicENT: poor dentition, moist mucosal membranesNeck: full range of motion, supple/no meningismus, no JVDCardiovascular: irregular rhythm, normal capillary refill, brandee l heart soundsRespiratory: decreased breath sounds , on oxygen (4L NC), prolonged exp phase, rhonchi, wheezing, symmetric expansionAbdomen: non-tender , softGenitourinary: no urinary catheterExtremities: moves all, no calf tenderness, no edemaMusculoskeletal: normal inspection, painless range of motionNeuro/BROILER CHEF OR COOK: alert, normal speechSkin: dryPsychiatry: abnl judgment/insight, normal affect, normal mood, no hallucinations ResultsResults: no new labs, vonda l signs reviewed, current med profile rev'd Diagnosis, Assessment PlanProblem List/A P: 1. Acute respiratory failure with hypoxia and hypercapnia 2. COPD with acute exacerbation 3. COPD (chronic obstructive pulmonary disease) 4. Paroxysmal atrial fibrillation 5. Chronic systolic heart failure 6. Dementia 7. Current tobacco use Free Text DxA P NotesFree text DxA P notes: Acute Respiratory Failure w/ Hypoxia Hypercapnia Acute COPD Exacerbation COPDStable o n morning evaluation, unchanged from prior evaluation. Patient continuesto await echocardiogram and device interrogation. He is resting comfortably but is belligerant and demanding to be sent home. He is tolerating nasa l cannual oxygen without dyspnea, which he uses at home.PLAN- Cont. methylprednisolone 40mg IV q8hr - Cont. scheduled duonebs, budesonide - PRN benzonatate - Cont. incentive spirometery- Cont. to ween O2 as tolerated; uses 2L home O2 HypotensionImproved, known history of chronic hypertension. Blood pressure stable over the day.PLAN- Hold all BP meds - Cont. IV methyprednisolone, adequate for BP support, no other interventions needed at this time - Consider initiating midodrine for blood pressure support if hypotension recurrs- Avoid fluid bolusing, Due to CHF- Echo pending Hyponatremia Suspect due to HCTZ use.PLAN- Hold HCTZ- Monitor Na Paroxysmal Atrial Fibrillation Outpatient rat e control for trial fibrillation unknown at this time, takes rivaroxiban outpatient for managemen t of embolic CVA risk. PLAN- Continuous telemetry monitoring- Cont. rivaroxiban Chronic Systolic CHF s/p AICD Patient is previously known to be o n JOSE inhibitor and beta chani, but he is unsure if he is still taking these medications.PLAN- Echo pending- Device interrogation pending Macrocytic AnemiaMCV 101 on admission.PLAN- B12 and Folate pending DementiaAlert and oriented to person, place, and time.PLAN- Cont. memantine, donepezil Current Tobacco UseEveryday user, smoking, 1-2 packs per day, duration unknown. 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 nicotine patch Code Status: Full CodeVTE Ppx: RivaroxibanDiet: Cardiac Quality: Gen Med Crit Care VTE ProphylaxisVTE prophylaxis initiated: yes (rivaroxiban) Current MedicationsCurrent medication review:I attest that the foregoing medication list in the medica l record is true, accurate, and complete to the best of my knowledge. BMI Screening > 25 or < 18.5BMI status/follow-up: nml BMI,no counseling department chair needed AttestationsAttestation needed: teaching physician Rudy Xiao 03/18/23 1743:Attestations Teaching Physician AttestationF/U visit w/ resident:I saw the patient with the resident and . . . agree with the resident's findings and plan.echo unremarkableawait aicd interrogationdv t ppx: on xarelto at 1023 at 1743 RPT #:[id number] OF REPORTPRProgress [id number]:16:00Z.[id number] l able for patient [id number]:23:27 2023-03-18 06:54:00 [id number]:54:00 [facility] ([facility] LAWNCardiology Progress NoteREPORT#:[id number] REPORT STATUS: SignedDATE:03/18/23 TIME: 0654 PATIENT: JUAN C MONGE UNIT #: [id number]#: [id number] [facility] [birth year] AGE : 62 SEX: M ATTEND: Rudy Xiao [facility] AUTHOR: Tyrell Mckeon MD * ALL edits or amendments must be made on the electronic/computer document * SubjectiveChief complaint:DyspneaPatient reports:No: chest pain, palpitations, shortness of breath. Objective GeneralVS/I O:Vital Signs: Date Time Temp Pulse Resp B/P B/P Pulse O2 O2 Flow FiO2 Mean Ox Delivery Rate 03/18 0406 [...] 1800 84 20 96 03/17 1700 74 1 8 97 03/17 1600 78 7 97 03/17 1500 68 19 100 06/2 9 1400 84 23 98 03/17 1300 73 18 100 03/17 1200 8 8 22 97 03/17 1134 98.3 03/17 1100 70 18 98 03/17 1000 74 8 98 03/17 0900 84 16 98 03/17 0800 Nasa l 3 cannula 03/17 0800 74 16 100 03/17 0749 96 Nasal 4 36 cannula 03/17 0717 97.6 03/17 0700 72 26 98 PATIENT WEIGHT: Weight (lb): Weight (oz): Weight (kg): 68.182 Medications:Active Meds + DC'd Last 24 HrsLevofloxacin (LEVAQUIN) 500 MG DAILY PO Potassium Chloride (KLOR-CON M20) 20 ME Q NOW ONE PO (DC) Aspirin (ASPIRIN EC) 81 MG DAILY PO Donepezil HCl (ARICEPT) 5 MG DAILY PO Memantine (NAMENDA) 5 MG DAILY PO Rivaroxaban (XARELTO) 15 MG DAILY PO Tamsulosin HCl (FLOMAX) 0.4 MG DAILY PO Atorvastatin Calcium (LIPITOR) 4 0 MG BEDTIME PO Benzocaine/Menthol (Cepacol Sore Throat Lozenge) 1 TAB Q4H PRN PRN MM (CKD) Sodiu m Chloride (SODIUM CHLORIDE 0.9%) 1,000 ML Q13H IV Benzonatate (TESSALON PERLE) 100 MG TID PRN PRN PO Guaifenesin/Dextromethorphan (ROBITUSSIN-DM) 10 ML Q4H PRN PRN PO Nicotine (NICODERM) 21 MG DAILY TRANSDERM (CKD) Methylprednisolone Sodium Succinate (SOLU-Medrol) 40 MG Q8HR IV Acetaminophen (TYLENOL EXTRA STRENGTH TAB) 500 M G Q4H PRN PRN PO Al Hydrox/Mg Hydrox/Simethicone (MAALOX PLUS) 30 ML Q6H PRN PRN PO Docusate Sodium (COLACE) 100 MG BID PRN PRN PO Melatonin (MELATONIN) 3 MG BEDTIME PRN PRN PO Ondansetron HCl (ZOFRAN) 4 MG Q6H PRN PRN IV Albuterol/Ipratropium (DUONEB 2.5-0.5 MG/3 ML SOLN) 3 ML RTQ6H INH Budesonide (Pulmicort) 0.5 MG RTQ12H NEB Physical ExamGeneral appearance: alert, awake, orientedHead/Eyes: atraumatic, normocephalicENT: moist mucosal membranesNeck: n o JVDCardiovascular: CV assessment: regular rate and rhythmRespiratory: decreased breath sounds, wheezing, no distressLower extremity: LE assessment: no edemaMusculoskeletal: full range of motionNeuro/BROILER CHEF OR COOK: alert, oriented X 3, CN II-XII intactSkin: dry, intactPsychiatry: normal affect, normal judgment/insight, normal mood Diagnosis, Assessment Plan Free Text DxA P NotesFree Text DxA P Notes:IMPRESSION:1. Chronic systolic heart failure.2. Status post Serrano automated implantable cardioverter defibrillator.3. Dyspnea.4. Coronary artery disease.5. Hypertension.6. Dyslipidemia. RECOMMENDATIONS: Continue current medical therapy. Oxygen support as needed. Electronicall y Signed by Tyrell Mckeon MD on 03/19/23 at 122 0 RPT #:[id number] OF REPORTPRProgress [id number]:54:00Z.[id number] trudy able for patient [id number]:20:55 2023-03-17 13:48:00 [id number]:48:00 [facility] CenterHospital[facility] Progress NoteREPORT#:[id number] REPORT STATUS: SignedDATE:03/17/23 TIME: 1348 PATIENT: JUAN C MONGE UNIT #: [id number]#: [id number] [facility] [birth year] AGE: 62 SEX: M ATTEND: Rudy Xiao [facility] AUTHOR: Jenny Meyers MD R2 * ALL edits or amendments must be made on the electronic/computer document * Jenny Meyers 03/17/23 1348:SubjectiveChief complaint:SOB, hypotensionHPI:62 yo M with PMH of COPD on 2L NC , Hypertension, Anxiety, Systolic CHF s/p AICD,Tanika b on xarelto, CVA and dementia presented as a transfer from [facility] for evaluatio n of shortness of breath. Pt reports worsening SOB over the past few days. Associated with productive cough and nausea in the past day. Pt reports having low BP last week and was seen in the ED for this with no medication changes done. Pt unsure of his exact medications but states he takes BP meds. Pt was given steroids, nen tx, pepcid and levaquin prior to transfer here. Hypotensive on presentation but improved with fluids. Labs remarkable for hyponatremia, hyperkalemia, elevated bicarb and anemia with high MCV. Pt was requiring bipap at previous facility but took it off on the way here and was on 6L NC in ED. Pt's blood gases showing marked hypercapnia so placed back on bipap. Pt has been admitted for further evaluation and management. Comments:- Awake, alert, orientation unknown as patient refuses to answer questions for evaluation- Tolerating PO, on supplemental O2 vi a nasal cannula- Able to ambulate with assistance- Denies fever/chill, nausea/vomiting, chest pain, worsening shortness of breath Review of SystemsConstitutional:Denies: chills, fatigue, fever, generalized weakness, lethargy, malaise, recent wt loss. Respiratory:Reports: productive cough (sputum), SOB, wheezing. Denies: ANNE (dyspnea on exertion), hemoptysis, non productiv e cough, parox nocturnal dyspnea, pleurisy, pleuritic pain, pneumonia. All systems rev neg: except as noted Objective GeneralVS/I O:Vital Signs: Date Time Temp Pulse Resp B/P B/P Pulse O 2 O2 Flow FiO2 Mean Ox Delivery Rate 03/17 1400 84 23 98 03/17 1300 73 18 100 03/17 1200 88 22 97 03/17 1134 98.3 03/17 1100 70 18 98 03/17 1000 74 8 98 03/17 0900 84 16 98 03/17 0800 74 16 100 03/17 0749 96 Nasal 4 36 cannula 03/17 0717 97. 6 03/17 0700 72 26 98 03/17 0600 76 13 100 03/17 0500 79 18 92 03/17 0400 87 16 92 03/17 0300 85 18 95 03/17 0200 84 26 94 03/17 0100 81 25 92 03/17 0000 96 23 96 03/16 2300 85 25 95 03/16 2213 87 26 127/63 88 92 03/16 2200 83 19 95 06/2 8 2100 85 28 94 03/16 2020 95 Nasal 4 36 cannula 03/16 2000 88 16 97 03/16 1959 Nasal 4 cannula 03/16 1935 103 29 130/61 88 94 03/16 1918 98.8 2 0 03/16 1900 101 26 96 24 hour I O ending at 0700: 03/17 0700 03/16 1900 Intake Total 1200.00 1980.00 Output Total 1150 Balance 1200.00 830.0 0 Intake, IV 900.00 750.00 Intake, Oral 300 1230 Output, Urine 1150 PATIENT WEIGHT: Weight (lb): Weight (oz): Weight (kg): 68.182 Physical ExamGeneral appearance: alert, awake, oriented, no acute distress, pleasant, conversationalHead/Eyes: atraumatic, clear cornea, EOMI, normocephalicENT: moist mucosal membranesNeck: full range of motion, non-tender, supple/no meningismusCardiovascular: irregular rhythm, normal capillary refill, normal heart soundsRespiratory: decreased breath sounds, on oxygen (4L NC), prolonged exp phase, rhonchi, wheezing, symmetric expansionAbdomen: non-tender , soft, no guardingGenitourinary: no urinary catheterExtremities: moves all, no calf tenderness, no cyanosisMusculoskeletal: normal inspection, painless range of motionNeuro/BROILER CHEF OR COOK: alert, oriented X 3, normal speechSkin: dryPsychiatry: abnl judgment/insight, normal affect, normal mood, no hallucinations ResultsResults: no new labs, vital signs reviewed, current med profile rev'd Diagnosis, Assessment PlanProblem List/A P: 1. Acute respiratory failure with hypoxia and hypercapnia 2. COPD with acute exacerbation 3. COPD (chronic obstructive pulmonary disease) 4. Paroxysmal atrial fibrillation 5. Chronic systolic heart failure 6. Dementia 7. Current tobacco use Free Text DxA P NotesFree text DxA P notes: Acute Respiratory Failure w/ Hypoxia Hypercapnia Acute COPD Exacerbation COPDImproved on morning evaluation, continues to be beligerant with nursing and intermittently refusing to answer questions pertaining to orientation status. Patient is pending device interrogation and echocardiogram for evaluation of arrhythmia.PLAN - Cont. methylprednisolone 40mg IV q8hr- Cont. scheduled duonebs, budesonide - PRN benzonatate - Cont. incentive spirometery- Cont. to ween O2 as tolerated; uses 2L home O2 HypotensionImproved, known history of chronic hypertension. Blood pressure stable over the day.PLAN- Hold all BP meds - Cont. IV methyprednisolone, adequate for BP support, no other interventions needed at thi s time - Consider initiating midodrine for blood pressure support if hypotension recurrs- Avoid fluid bolusing, Due to CHF- Echo pending Hyponatremia Suspect due to HCTZ use.PLAN- Hold HCTZ- Monitor Na Paroxysmal Atrial Fibrillation Outpatient rate control for trial fibrillation unknown at this time, takes rivaroxiban outpatient for management of embolic CVA risk. PLAN- Continuous telemetry monitoring- Cont. rivaroxiban Chronic Systolic CHF s/p AICD Patidomitila t is previously known to be on JOSE inhibitor and beta chani, but he is unsure if he is still taking these medications.PLAN- Device interrogation pending Macrocytic AnemiaMCV 101 o n admission.PLAN- B12 and Folate pending DementiaAlert and oriented to person, place, and time.PLAN- Cont. memantine, donepezil Current Tobacco UseEveryday user, smoking, 1-2 packs per day, duration unknown. 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 nicotine patch Code Status: Full CodeVTE Ppx: RivaroxibanDiet: Cardiac Quality: Gen Med Crit Care VTE ProphylaxisVTE prophylaxis initiated: yes (rivaroxiban) Current MedicationsCurrent medication review:I attest that the foregoing medication list in the medical record is true, accurate, and complete to the best of my knowledge. BMI Screening > 25 or < 18.5BMI status/follow-up: nml BMI,no counseling department chair needed AttestationsAttestation needed: teaching physician Rudy Xiao 03/17/23 1405:Attestations Teaching Physician AttestationF/U visit w/ resident:I saw the patient with the resident and . . . agree with the resident's findings and plan. await echo and aicd interrogationcont xareltohas home o2 at 1511 at 0024 RPT #:[id number] OF REPORTPRProgress [id number]:48:00Z.[id number] l able for patient [id number]:11:47 2023-03-17 06:38:00 [id number]:38:00 [facility] ([facility] LAWNCardiology Progress NoteREPORT#:[id number] REPORT STATUS: SignedDATE:03/17/23 TIME: 06 PATIENT: JUAN C MONGE UNIT #: [id number]#: [id number] [facility] [birth year] AGE: 62 SEX: M ATTEND: Rudy Xiao [facility] AUTHOR: Tyrell Mckeon MD * ALL edits or amendments must be made on the electronic/computer document * SubjectiveChief complaint:DyspneaPatient reports:No: chest pain, palpitations, shortness of breath. Objective GeneralVS/I O:24 hour I O ending at 0700: 03/17 0700 03/16 1900 Intake Total 1200.00 1980.00 Output Total 1150 Balance 1200.00 830.00 Intake, IV 900.00 750.00 Intake, Oral 300 1230 Output, Urine 1150 Vital Signs: Date Time Temp Pulse Res p B/P B/P Pulse O2 O2 Flow FiO2 Mean Ox Delivery Rate 03/17 0600 76 13 100 03/17 0500 79 18 92 03/17 0400 87 16 92 03/17 0300 85 18 95 03/17 0200 84 26 94 03/17 0100 81 25 92 03/17 0000 96 23 96 03/16 2300 85 25 95 03/16 2213 87 26 127/6 3 88 92 03/16 2200 83 19 95 03/16 2100 85 28 94 03/16 2020 95 Nasal 4 36 cannula 03/16 2000 88 16 97 03/16 1959 Nasal 4 cannula 03/16 1935 103 29 130/61 88 94 03/16 1918 98.8 20 03/16 1900 10 1 26 96 03/16 1100 85 130/64 90 97 03/16 1000 83 3 1 141/79 100 97 03/16 0900 76 22 102/58 74 91 06/2 8 0801 92 26 133/64 90 94 03/16 0725 Nasal 4 cannula 03/16 0705 94 Nasal 4 cannula 03/16 070 5 94 Nasal 4 cannula 03/16 0700 76 17 110/56 77 9 2 PATIENT WEIGHT: Weight (lb): Weight (oz): Weight (kg): 68.182 Medications:Active Meds + DC'd Last 24 HrsLevofloxacin (LEVAQUIN) 500 MG DAILY PO Potassium Chloride [...] Lozenge) 1 TAB Q4H PRN PRN MM (CKD) Sodium Chloride (SODIUM CHLORIDE 0.9%) 1,000 ML Q13H IV Benzonatate (TESSALON PERLE) 10 0 MG TID PRN PRN PO Guaifenesin/Dextromethorphan (ROBITUSSIN-DM) 10 ML Q4H PRN PRN PO Nicotine (NICODERM) 21 MG DAILY TRANSDERM (CKD) Methylprednisolone Sodium Succinate (SOLU-Medrol ) 40 MG Q8HR IV Acetaminophen (TYLENOL EXTRA STRENGTH TAB) 500 MG Q4H PRN PRN PO Al Hydrox/Mg Hydrox/Simethicone (MAALOX PLUS) 30 ML Q6H PRN PRN PO Docusate Sodium (COLACE) 100 MG BID PRN PRN PO Melatonin (MELATONIN) 3 MG BEDTIME PRN MS N PO Ondansetron HCl (ZOFRAN) 4 MG Q6H PRN PRN IV Albuterol/Ipratropium (DUONEB 2.5-0.5 MG/3 ML SOLN) 3 ML RTQ6H INH Budesonide (Pulmicort) 0.5 MG RTQ12H NEB Physical ExamHead/Eyes: atraumatic , normocephalicENT: moist mucosal membranesNeck: n o JVDCardiovascular: CV assessment: regular rate and rhythmRespiratory: decreased breath sounds, wheezing, no distressLower extremity: LE assessment: no edemaMusculoskeletal: full range of motionNeuro/BROILER CHEF OR COOK: alert, oriented X 3, CN II-XII intactSkin: dry, intactPsychiatry: normal affect, normal judgment/insight, normal mood ResultsFindings/Data:Laboratory Tests 03/16 02/18 8 09 0929 Chemistry Sodium (137 - 145 MMOL/L) 13 3 L Potassium (3.5 - 5.1 MMOL/L) 3.4 L Chloride (9 8 - 107 MMOL/L) 89 L Carbon Dioxide (22 - 30 MMOL/L) 37 H BUN (9 - 20 MG/DL) 16 Creatinine (0.66 - 1.25 MG/DL) 0.60 L Glomerular Filtr Rat e > 60 Glucose (74 - 106 MG/DL) [...] RBC (3.95 - 5.67 M/MM3) 3.53 L Hg b (12.4 - 16.7 G/DL) 11.4 L Hct (35.9 - 49.5 %) 35.5 L MCV (81.7 - 96.1 fL) 101 H MCH (27.6 - 33.2 pg) 32.3 MCHC (32.9 - 35.5 %) 32.1 L RDW (12.1 - 15.2 %) 12.5 Plt Count (129 - 368 K/MM3) 178 MPV (7.4 - 10.4 fl) 11.7 H Neut % (Auto) (4 3 - 75 %) 92.4 H Lymph % (Auto) (14 - 44 %) 3.3 L [place] % (Auto) (4 - 13 %) 3.9 L Eos % (Auto) (0 - 6 %) 0.0 Baso % (Auto) (0 - 2 %) 0.1 Neut # (Auto) (2.0 - 7.6 K/mm3) 9.37 H Lymph # (Auto) (1.0 - 3.8 K/mm3) 0.33 L [place] # (Auto) (0.1 - 0. 8 K/mm3) 0.40 Eos # (Auto) (0.0 - 0.2 K/mm3) 0.00 Baso # (Auto) (0.0 - 0.2 K/mm3) 0.01 Immature Gran % (0.0 - 2.0 %) 0.3 Nucleated RBC % (0 - 1. 0 %) 0.0 Nucleated RBCs # (Man) (0.0 - 0.1 K/mm3) 0.00 Diagnosis, Assessment Plan Free Text DxA P NotesFree Text DxA P Notes:IMPRESSION:1. Chronic systolic heart failure.2. Status post Serrano automated implantable cardioverter defibrillator.3. Dyspnea.4. Coronary artery disease.5. Hypertension.6. Dyslipidemia. RECOMMENDATIONS: Continue current medical therapy. Oxygen support as needed. Electronicall y Signed by Tyrell Mckeon MD on 03/19/23 at 122 0 RPT #:[id number] OF REPORTPRProgress [id number]:38:00Z.[id number] trudy able for patient [id number]:20:45 2023-03-16 20:57:00 [id number]:57:00 [facility] ([facility])Cardiology Progress NoteREPORT#:[id number] REPORT STATUS: SignedDATE:03/16/23 TIME: 2056 PATIENT: JUAN C MONGE UNIT #: [id number]#: [id number] [facility] [birth year] AGE : 62 SEX: M ATTEND: Rudy Xiao [facility] AUTHOR: Tyrell Mckeon MD * ALL edits or amendments must be made on the electronic/computer document * SubjectiveChief complaint:DyspneaPatient reports:No: chest pain, palpitations, shortness of breath. Objective GeneralVS/I O:24 hour I O ending at 0700: 03/16 0700 03/15 1900 Intake Total 1000.00 Output Tota l 400 Balance 600.00 Intake, IV 1000.00 Output, Urine 400 Vital Signs: Date Time Temp Pulse Resp B/P B/P Pulse O2 O2 Flow FiO2 Mean Ox Delivery Rate 03/16 2020 [...] 90 94 03/16 0725 Nasal 4 cannula 02/18 8 0705 94 Nasal 4 cannula 03/16 0705 [...] Weight (lb): Weight (oz): Weight (kg): 68.182 Medications:Active Meds + DC'd Last 24 HrsLevofloxacin (LEVAQUIN) 500 MG DAILY PO Potassium Chloride (KLOR-CON M20) 20 ME Q NOW ONE PO (DC) Aspirin (ASPIRIN EC) 81 MG DAILY PO Donepezil HCl (ARICEPT) 5 MG DAILY PO Memantine (NAMENDA) 5 MG DAILY PO Rivaroxaban (XARELTO) 15 MG DAILY PO Tamsulosin HCl (FLOMAX) 0.4 MG DAILY PO Levofloxacin/Dextrose (LEVAQUIN 500MG/100ML D5W) 100 ML Q24H IV (DC) Atorvastati n Calcium (LIPITOR) 40 MG BEDTIME PO Benzocaine/Menthol (Cepacol Sore Throat Lozenge) 1 TAB Q4H PRN PRN MM (CKD) Sodium Chloride (SODIUM CHLORIDE 0.9%) 1,000 ML Q13H IV Benzonatate (TESSALON PERLE) 100 MG TID PRN PRN PO Guaifenesin/Dextromethorphan (ROBITUSSIN-DM) 10 ML Q4H PRN PRN PO Nicotine (NICODERM) 21 MG DAILY TRANSDERM (CKD) Methylprednisolone Sodium Succinate (SOLU-Medrol) 40 MG Q8HR IV Acetaminophen (TYLENOL EXTRA STRENGTH TAB) 500 M G Q4H PRN PRN PO Al Hydrox/Mg Hydrox/Simethicone (MAALOX PLUS) 30 ML Q6H PRN PRN PO Docusate Sodium (COLACE) 100 MG BID PRN PRN PO Melatonin (MELATONIN) 3 MG BEDTIME PRN PRN PO Ondansetron HCl (ZOFRAN) 4 MG Q6H PRN PRN IV Albuterol/Ipratropium (DUONEB 2.5-0.5 MG/3 ML SOLN) 3 ML RTQ6H INH Budesonide (Pulmicort) 0.5 MG RTQ12H NEB Physical ExamGeneral appearance: alert, awake, orientedHead/Eyes: atraumatic, normocephalicENT: moist mucosal membranesNeck: n o JVDCardiovascular: CV assessment: regular rate and rhythmRespiratory: clear to auscultation, no distressLower extremity: LE assessment: no edemaMusculoskeletal: full range of motionNeuro/BROILER CHEF OR COOK: alert, oriented X 3, CN II-XII intactSkin: dry, intactPsychiatry: normal affect , normal judgment/insight, normal mood ResultsFindings/Data:Laboratory Tests 03/16 03/16 0929 0929 Chemistry Sodium [...] - 49 UNITS/L) 10 Total Alk Phosphatase (3 8 - 126 UNITS/L) 51 Total Protein (6.2 - 7.6 G/DL) 5.1 L Albumin (3.5 - 5.0 G/DL) 3.0 L Vitamin B12 (239 - 931 pg/mL) 738 Folate (ng/mL) 4.9 Laboratory Tests 03/16 0929 Hematology WBC (3.8 - 9.8 K/MM3) 10.1 H RBC (3.95 - 5.67 M/MM3) 3.53 L Hgb (12.4 - 16.7 G/DL) 11.4 L Hct (35.9 - 49. 5 %) 35.5 L MCV (81.7 - 96.1 fL) 101 H MCH (27.6 - 33.2 pg) 32.3 MCHC (32.9 - 35.5 %) 32.1 L RDW (12.1 - 15.2 %) 12.5 Plt Count (129 - 368 K/MM3 ) 178 MPV (7.4 - 10.4 fl) 11.7 H Neut % (Auto) (43 - 75 %) 92.4 H Lymph % (Auto) (14 - 44 %) 3.3 L [place] % (Auto) (4 - 13 %) 3.9 L Eos % (Auto) (0 - 6 %) 0.0 Baso % (Auto) (0 - 2 %) 0.1 Neut # (Auto) (2.0 - 7.6 K/mm3) 9.37 H Lymph # (Auto) (1.0 - 3.8 K/mm3) 0.33 L [place] # (Auto) (0.1 - 0.8 K/mm3) 0.40 Eos # (Auto) (0.0 - 0.2 K/mm3) 0.00 Baso # (Auto) (0.0 - 0.2 K/mm3) 0.01 Immature Gran % (0.0 - 2.0 %) 0.3 Nucleated RBC % (0 - 1.0 %) 0.0 Nucleated RBCs # (Man) (0.0 - 0. 1 K/mm3) 0.00 Diagnosis, Assessment Plan Free Text DxA P NotesFree Text DxA P Notes:IMPRESSION:1. Chronic systolic heart failure.2. Status post Serrano automated implantable cardioverter defibrillator.3. Dyspnea.4. Coronary artery disease.5. Hypertension.6. Dyslipidemia. RECOMMENDATIONS: Continue current medical therapy. Oxygen support as needed. Electronicall y Signed by Tyrell Mckeon MD on 03/17/23 at 063 7 RPT #:[id number] OF REPORTPRProgress [id number]:57:00Z.[id number] trudy able for patient [id number]:38:10 2023-03-16 08:07:00 [id number]:07:00 [facility]Hospital[facility] Progress NoteREPORT#:[id number] REPORT STATUS: SignedDATE:03/16/23 TIME: 08 PATIENT: JUAN C MONGE UNIT #: [id number]#: [id number] [address] [birth year] AGE: 62 SEX: M ATTEND: Ruyd Xiao AUTHOR: Jenny Meyers MD R2 * ALL edits or amendments must be made on the electronic/computer document * Jenny Meyers 03/16/23 0807:SubjectiveChief complaint:SOB, hypotensionHPI:62 yo M with PMH of COPD on 2L NC , Hypertension, Anxiety, Systolic CHF s/p AICD,Tanika b on xarelto, CVA and dementia presented as a transfer from [facility] for evaluatio n of shortness of breath. Pt reports worsening SOB over the past few days. Associated with productive cough and nausea in the past day. Pt reports having low BP last week and was seen in the ED for this with no medication changes done. Pt unsure of his exact medications but states he takes BP meds. Pt was given steroids, nen tx, pepcid and levaquin prior to transfer here. Hypotensive on presentation but improved with fluids. Labs remarkable for hyponatremia, hyperkalemia, elevated bicarb and anemia with high MCV. Pt was requiring bipap at previous facility but took it off on the way here and was on 6L NC in ED. Pt's blood gases showing marked hypercapnia so placed back on bipap. Pt has been admitted for further evaluation and management. Comments:- Awake, alert, oriented, conversational- Tolerating PO, tolerating NC -- 4L- Able to amulate without assistance- Endorses improvement in breathing, no cough, and no chest pain- Denies dizziness, fever/chills, nausea/vomiting Review of SystemsConstitutional:Denies: chills, fatigue, fever, generalized weakness, lethargy, malaise, recent wt loss. Respiratory:Reports: SOB, wheezing. Denies: ANNE (dyspnea on exertion), hemoptysis, non productive cough, parox nocturna l dyspnea, pleurisy, pleuritic pain, pneumonia, productive cough (sputum). All systems rev neg: except as noted Objective GeneralVS/I O:Vital Signs: Date Time Temp Pulse Resp B/P B/P Pulse O 2 O2 Flow FiO2 Mean Ox Delivery Rate 03/16 0705 94 Nasal 4 cannula 03/16 0705 94 Nasal 4 cannula 03/16 0600 75 18 113/69 86 99 03/16 0500 83 18 97/55 73 99 03/16 0400 81 25 110/58 78 95 03/16 0347 97.5 03/16 0300 84 21 99/59 73 95 03/16 020 5 82 20 135/64 92 98 03/16 0100 [...] 92/55 69 95 03/15 1300 BiPAP 30 06/27 1300 89 30 108/61 79 75 03/15 1114 69 100 50 24 hour I O ending at 0700: 03/16 0700 03/15 1900 Intake Total 1000.00 Output Total 400 Balance 600.00 Intake, IV 1000.00 Output, Urine 400 PATIENT WEIGHT: Weight (lb): Weight (oz): Weight (kg): 68.182 Physical ExamGeneral appearance: alert, awake, oriented, no acute distress, pleasant, conversationalHead/Eyes: atraumatic, EOMI, normocephalicENT: moist mucosal membranesNeck: full range of motion, non-tender, supple/no meningismusCardiovascular: irregular rhythm, normal capillary refill, normal heart soundsRespiratory: decreased breath sounds, on oxygen (4L NC), prolonged exp phase, rhonchi, wheezing, symmetric expansionAbdomen: non-tender , soft, no distention, no guardingGenitourinary: n o urinary catheterExtremities: moves all, no calf tenderness, no edemaMusculoskeletal: normal inspection, painless range of motionNeuro/BROILER CHEF OR COOK: alert, oriented X 3, normal speechSkin: dryPsychiatry: abnl judgment/insight, normal affect, normal mood, no hallucinations ResultsFindings/Data:Laboratory Tests 03/15 02/18 7 1640 1206 Blood Gas Puncture Site LR LR ABG pH (7.35 - 7.45 mmHg) 7.44 7.27 L ABG pCO2 (35.0 - 45.0 mmHg) 50.6 *H 79.0 *H ABG pO2 (80.0 - 100. 0 mmol/L) 52.9 L 106.2 H ABG HCO3 (20.0 - 26.0 mmol/L) 33.2 H 35.4 H ABG O2 Saturation (95.0 - 100.0 %) 88.0 L 96.9 ABG Base Excess (-3.0 - 3.0 mmol/L) 7.5 H 5.8 H Mt Test (CHECK) Y Y Hgb O 2 Saturation (95 - 100 %) 94.0 L Carboxyhemoglobi n (0.5 - 1.5 %) 3.6 *H Methemoglobin (0.4 - 1.5 %) 0.2 L Total Hemoglobin (12.0 - 16.0 g/L) 13.0 Temperature (37 C) 37.0 37.0 O2 Delivery Device N/C BIPAP Vent Rate (/MIN) 14.0 FiO2 (%) 36 50 PEEP (cmH2O) 5.0 Pressure Support (cmH2O) 12 Results: labs reviewed, vital signs reviewed, current med profile rev'd Diagnosis, Assessment PlanProblem List/A P: 1. Acute respiratory failure with hypoxia and hypercapnia 2. COPD wit h acute exacerbation 3. COPD (chronic obstructive pulmonary disease) 4. Paroxysmal atrial fibrillation 5. Chronic systolic heart failure 6 . Dementia 7. Current tobacco use Free Text DxA P NotesFree text DxA P notes: Acute Respiratory Failure w/ Hypoxia Hypercapnia Acute COPD Exacerbation COPDSevere decomensation of COPD associated with acute respiratory failure, impressive for hypoxia and hypercapnia. IV methylprednisolone 125mg and decadronadministere d prior to arrival. Transitioned off BiPAP overnight and tolerating 4L via NC. ABG improved on repeat ABG.PLAN- Cont. methylprednisolone 40m g IV q8hr- Cont. scheduled duonebs, budesonide - PRN benzonatate - Cont. incentive spirometery- Cont. to ween O2 as tolerated; uses 2L home O2 HypotensionImproved, known history of chronic hypertension. Present on arrival, improved BPon intake with bedside telemetry reading 100/57. Pt thinks he is on multiple rx for BP management - active rx for HCTZ noted and pt was previously o n Coreg and Benazapril but unsure if he is on all 3 now. Will need to verify with his sisterSue who is unreachable via phone at this time PLAN- Hold all BP meds - Cont. IV methyprednisolone, adequate for BP support, no other interventions needed at this time - Consider initiating midodrine for blood pressure support if hypotension recurrs- Avoid fluid bolusing, Due t o CHF- Echo pending Hyponatremia Suspect due to HCTZ use.PLAN- Hold HCTZ- Monitor Na Paroxysmal Atrial Fibrillation Outpatient rate control for trial fibrillation unknown at this time, takes rivaroxiban outpatient for management of embolic CVA risk. PLAN- Continuous telemetry monitoring- Cont. rivaroxiban- Verify medication list with his sister, when contacted Chronic Systolic CHF s/p AICD Patient is previously known to be on AC E inhibitor and beta chani, but he is unsure if he is still taking these medications.PLAN- Verif y with sister and resume, if active Macrocytic AnemiaMCV 101 on admission.PLAN- B12 and Folate pending DementiaAlert and oriented to person, place, and time.PLAN- Cont. memantine, donepezil Current Tobacco UseEveryday user, smoking, 1-2 packs per day, duration unknown. 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 nicotine patch Code Status: Full CodeVTE Ppx: RivaroxibanDiet: Cardiac Quality: Gen Med Crit Care VTE ProphylaxisVTE prophylaxis initiated: yes (rivaroxiban) Current MedicationsCurrent medication review:I attest that the foregoing medication list in the medical record is true, accurate, and complete to the best of my knowledge. BMI Screening > 25 or < 18.5BMI status/follow-up: nml BMI,no counseling department chair needed AttestationsAttestation needed: teaching physician Rudy Xiao 03/16/232006:Attestations Teaching Physician AttestationF/U visit w/ resident:I saw the patient with the resident and . . . agree with the resident's findings and plan. echocards folloingaicd interrogationcont xareltohas home o2 at 1416 at 2006 RPT #:[id number] OF REPORTPRProgress [id number]:07:00Z.[id number] trudy able for patient [id number]:17:30 2023-03-15 20:17:00 [id number] [place] [address] PATIENT NAME: JUAN C MONGE ADMIT DATE: 03/15/23ACCOUNT NO: [id number] JULY De Leon NO: [id number] AGE: 62 REPORT TYPE: ELECTROCARDIOGRAM SEX: M ADMITTING PHYSICIAN:Rudy Xiao MD ATTENDING PHYSICIAN:Rudy Xiao MD Order:[id number] Reason : CAD Test Date/Time Stamp:TueMar 15 20:17:48Blood Pressure : / mmHGVent. Rate : 093 BPM Atrial Rate : 093 BPM P-R Int : 140 ms QRS Dur : 090 ms QT Int : 362 ms P-R-T Axes : 08 2 071 079 degrees QTc Int : 450 ms Normal sinus rhythmNormal ECGWhen compared with ECG of 19-JUN-2020 13:14,Vent. rate has increased BY 33 BPMT wave amplitude has increased in Inferior leadsConfirmed by OMID TENORIO ([id number]) on 03/16/2023 7:34:29 AM Referred By: Self Referred Confirmed by:OMID TENORIO at 0734 PATIENT NAME: JUAN C MONGE .[id number] AVAvailable for patient [id number]:34:54 2023-03-15 16:03:00 [id number] [place] [id number] PATIENT NAME: JUAN C MONGE ADMIT DATE: 03/15/23ACCOUNT NO: [id number] ROOM NO: [facility] AGE : 62 REPORT TYPE: CONSULTATION REPORT SEX: M ADMITTING PHYSICIAN:Rudy Xiao MD ATTENDING PHYSICIAN:Rudy Xiao MD CONSULTATION DATE: 03/15/2023 REFERRING PHYSICIAN: Gurinder North MD REASON FOR CONSULTATION: I was asked to evaluate this patient for shortness of breath. HISTORY OF PRESENT ILLNESS: This is a 62-year-ol d male with a history of chronic systolic heart failure, COPD, status post Serrano AICD, who presented to the Emergency Room at [facility] in [place] with complaints of increasing shortness of breath. He denies chest pain. He has had increasing shortness of breath over the last few days. He has had a productive cough and nausea. He has also noted some hypotension. Currently, no chest pain. He is breathing better. PAST MEDICAL HISTORY: COPD, on home O2, hypertension, hyperlipidemia, atrial fibrillation, chronic systolic heart failure, CVA, dementia. PAST SURGICAL HISTORY: Status pos t appendectomy, status post Serrano AICD. FAMILY HISTORY: Positive for diabetes. SOCIAL HISTORY: No alcohol. Continues to smoke daily. ALLERGIES: NKDA. HOME MEDICATIONS: Donepezil, atorvastatin, memantine, rivaroxaban, tamsulosin, carvedilol, aspirin, omeprazole, potassium. REVIEW OF SYSTEMS:CONSTITUTIONAL: No complaints of fever o r chills.ENMT: No complaints of headache.EYES: No complaints of blurred vision.RESPIRATORY: Shortness of breath is noted that has been progressive.CARDIOVASCULAR: No complaints of chest pain or palpitations.GASTROINTESTINAL: No complaints of nausea or vomiting.GENITOURINARY: No complaints urinary frequency or dysuria.MUSCULOSKELETAL: No complaints of joint pain.SKIN: No complaints of skin rash.NEUROLOGIC : No complaints of focal weakness. PHYSICAL EXAMINATION: PATIENT NAME: JUAN C MONGE GENERAL: A well-nourished male, in no acute distress.VITAL SIGNS: Temperature 97.8, blood pressure 110/63, pulse 90, respiratory rate 38, O2 sats 91%.ENMT: Atraumatic, normocephalic.RESPIRATORY: Normal effort. Diminished breath sounds bilaterally wit h a prolonged expiratory phase. Just scattered expiratory wheezes.CARDIOVASCULAR: Normal S1 and S2. No S3 or S4.NECK: JVP is normal. No carotid bruits.EXTREMITIES: No edema.NEUROLOGIC: Cranial nerves II-XII are intact. No focal motor deficit s noted. Telemetry shows sinus rhythm. LABORATORY DATA: White blood cell count 7.4; hemoglobin 11.5; platelets 174,000. Sodium 128, potassium 5.4, chloride 90, CO2 of 36, BUN 17, creatinine 0.7, glucose 109, calcium 7.7. Troponin I less than 0.012. NT-proBNP is 79. Blood gas: 7.27/79/106.2/96.9%/bicarbonate 35.4. IMPRESSION:1. Chronic systolic heart failure.2. Status post Serrano automated implantable cardioverter defibrillator.3. Dyspnea.4. Coronary artery disease.5. Hypertension.6. Dyslipidemia. RECOMMENDATIONS:1. A 2D echocardiogram.2. AICD interrogation.3. Continue current medical therapy.4. Oxygen support as needed. Dictated By: Tyrell Mckeon MD Date Dictated: 03/15/2023 16:03:59Date Transcribed: 03/15/2023 16:59:18GSP/REQJob #: [id number] ID: [id number] by Tyrell Mckeon MD On 03/15/2023 06:28:21 PM at 0628 PATIENT NAME: JUAN C MONGE :59:00Z.H I [id number] for patient [id number]:29:09 2023-03-15 10:52:00 [id number]:52:[id number] [facility] ([facility] Campusist History PhysicalREPORT#:[id number] REPORT STATUS: SignedDATE:03/15/23 TIME: 105 PATIENT: JUAN C MONGE UNIT #: [id number]#: [id number] [facility] [birth year] AGE: 62 SEX: M ATTEND: Rudy Xiao [facility] AUTHOR: Clare Velazquez * ALL edits or amendment s must be made on the electronic/computer document * Clare Velazquez 03/15/23 1052:History of Present Illness HPIChief complaint:SOB, hypotension HPI:62 yo M with PMH of COPD on 2L NC, Hypertension, Anxiety, Systolic CHF s/p AICD,Tanika b on xarelto, CVA and dementia presented as a transfer from [facility] for evaluatio n of shortness of breath. Pt reports worsening SOB over the past few days. Associated with productive cough and nausea in the past day. Pt reports having low BP last week and was seen in the ED for this with no medication changes done. Pt unsure of his exact medications but states he takes BP meds. Pt was given steroids, nen tx, pepcid and levaquin prior to transfer here. Hypotensive on presentation but improved with fluids. Labs remarkable for hyponatremia, hyperkalemia, elevated bicarb and anemia with high MCV. Pt was requiring bipap at previous facility but took it off on the way here and was on 6L NC in ED. Pt's blood gases showing marked hypercapnia so placed back on bipap. Pt has been admitted for further evaluation and management. HistoryAdditional medical history:COPD on home oxygen, hypertension, hyperlipidemia, A-fib on xarelto, systolic CHF, CVA, Dementia Past surgical history:Reports: Appendectomy, ICD. Family history:Reports: Diabetes. Alcohol use: Denies EtOH useDrug use: Denies recreational drugsSmoking status for patients 13 years old or older: Current every day smoker (1 to 2 packs/da y ) Medication/Allergy-Vaccine HxMedications:Home Medications:Medication Dose/Rte/Freq Days Qty Entered Last Max Daily Dose Reviewed DONEPEZIL (ARICEPT) #90 - SIG Obtained 03/15/23 FromStrength: [address]First 1121 ATORVASTATIN (LIPITOR) 40 MG PO BEDTIME 03/15/23Strength: 40 MG TAB 1122 MEMANTINE (NAMENDA) 5 MG PO DAILY 03/15/23Strength: 5 MG TAB 1122 RIVAROXABAN (XARELTO) 15 MG PO DAILY 03/15/23Strength: 15 MG TAB 1122[Breztri Aerosphere 1] #11 - SIG Obtaine d 03/15/23 FromStrength: DrFirst 1122 TAMSULOSIN ER (FLOMAX) #30 - SIG Obtained 03/15/23 FromStrength: 0.[address] 1123CAP.SR.24H CARVEDILOL (COREG) 3.125 MG PO BID 03/15/23Strength: 3.125 MG TAB 1123 ASPIRIN EC (ECOTRIN) 81 MG PO DAILY 06/19/20trength: 81 MG TAB.EC 1105 OMEPRAZOLE ER 40 MG PO DAILY 06/19/20(PriLOSEC)Strength: 40 MG CAP.DR 1106 POTASSIUM CHLORIDE ER 10 MEQ PO BID 06/19/20 (MICRO-K) 1106Strength: 10 MEQ CAP.SA BENAZEPRIL (LOTENSIN) 10 MG PO DAILY 06/19/20trength: 10 M G TAB 1107 HYDROCHLOROTHIAZIDE DOSE 20MG DAILY 06/19/20 (HYDRODIURIL) 1108Strength: 25 MG TAB IPRATROPIUM 500 MCG INH RTQ6H 06/19/20 (ATROVEN T 0.02%) 1109Strength: 0.2 MG/ML(0.02 %) NEB ALBUTEROL 2.5 MG NEB 06/19/20 (ALBUTEROL 2.5 MG/3 ML RTQ4H PRN PRN 1110 (75mL)) WHEEZINGStrength: 2.5 MG/3 ML(0.083 %) NEB Current Hospital Medications:Anti-Infective Agents Sig/Imer Start time Last Medication Dose Route Stop Time Status Admin Levofloxacin/Dextrose 100 ML Q24H 03/16 0000 UNV (LEVAQUIN 500MG/ IV 03/23 0001 100ML D5W) Autonomic Drugs Sig/Imer Start time Last Medication Dose Route Stop Time Status Admin Donepezil HCl 5 MG DAILY 03/16 0900 AC (ARICEPT) PO 04/14 1126 Nicotine 21 MG DAILY 03/15 1520 UNVr (NICODERM) TRANSDERM 04/14 1521 Midodrine 1 0 MG ONCE ONE 03/15 1335 CAN (PROAMATINE) PO 02/18 7 1336 Albuterol Sulfate 5 MG X1ED STA 03/15 1113 DC (ALBUTEROL SULFATE) NEB 03/15 1114 Albuterol/Ipratropium 3 ML RTQ6H 03/15 1000 AC 03/15 (DUONEB 2.5-0.5 MG/3 INH 04/14 1001 1024 M L SOLN) Albuterol Sulfate 15 MG X1ED STA 03/15 063 2 DC 03/15 (ALBUTEROL SULFATE) NEB 03/15 0633 064 2 Blood Formation,Coagulation Sig/Imer Start time Last Medication Dose Route Stop Time Status Admi n Rivaroxaban 15 MG DAILY 03/16 0900 AC (XARELTO) PO 04/15 0901 Cardiovascular Drugs Sig/Imer Star t time Last Medication Dose Route Stop Time Status Admin Tamsulosin HCl 0.4 MG DAILY 03/16 0900 AC (FLOMAX) PO 04/14 1131 Atorvastatin Calcium 40 M G BEDTIME 03/15 2100 AC (LIPITOR) PO 04/14 2101 Central Nervous System Agents Sig/Imer Start time Last Medication Dose Route Stop Time Status Admi n Aspirin 81 MG DAILY 03/16 0900 AC (ASPIRIN EC) P O 04/15 0901 Memantine 5 MG DAILY 03/16 0900 AC (NAMENDA) PO 04/15 0901 Acetaminophen 500 MG Q4H PRN PRN 03/15 1005 AC (TYLENOL EXTRA PO 04/14 1006 STRENGTH TAB) Electrolytic, Caloric, And Wa t Sig/Imer Start time Last Medication Dose Route [...] Route Stop Time Status Admin Al Hydrox/Mg Hydrox / 30 ML Q6H PRN PRN 03/15 1005 AC Simethicone PO 04/14 1006 (MAALOX PLUS) Docusate Sodium 100 MG BID PRN PRN 03/15 1005 AC (COLACE) PO 04/14 100 6 Ondansetron HCl 4 MG Q6H PRN PRN 03/15 1005 AC (ZOFRAN) IV 04/14 1006 Hormones And Synthetic Substit Sig/Imer Start time Last Medication Dose Route Stop Time Status Admin Methylprednisolone 40 MG Q8HR 03/15 1300 AC 03/15 Sodium Succinate IV 04/14 1301 1404 (SOLU-Medrol) Miscellaneous Therapeutic Agen Sig/Imer Start time Last Medication Dose Route Stop Time Status Admin Melatonin 3 MG BEDTIME PRN PRN 03/15 1005 AC (MELATONIN) PO 04/14 1006 Allergies:Coded Allergies:No Known Allergies (06/19/20) Review o f SystemsRespiratory:Reports: ANNE (dyspnea on exertion), productive cough (sputum), SOB, wheezing. Cardiovascular:Denies: chest pain, edema, orthopnea, palpitations. All systems rev neg: except as marked Objective GeneralVS/I O:Vital Signs: Date Time Temp Pulse Resp B/P B/P Pulse O2 O2 Flow FiO2 Mean Ox Delivery Rate 02/18 7 1500 90 38 110/63 79 91 03/15 1400 67 21 92/55 6 9 95 03/15 1300 89 30 108/61 79 75 03/15 1114 69 100 50 03/15 0931 37.1 76 19 100/59 72 100 Nasal 6 cannula 03/15 0848 83/51 61 03/15 0645 72 16 90/53 65 98 Room air 03/15 0611 96 Nasal 2 cannula 03/15 0610 80 03/15 0534 Nasal 2 cannul a 03/15 0521 36.9 78 20 92/58 69 99 24 hour I O ending at 0700: 03/15 0700 03/14 1900 Intake Total Output Total Balance Patient 68.182 kg Weight Weight Stated/Reported Measurement Metho d PATIENT WEIGHT: Weight (lb): Weight (oz): Weight (kg): 68.182 Physical ExamGeneral appearance: alert, awake, orientedHead/Eyes: atraumatic, EOMI, normal conjunctiva/sclera, normocephalic, PERRLENT: moist mucosal membranes, normal ear left, normal ear right, normal noseNeck: non-tender, supple/no meningismus, no masses or swellingCardiovascular: irregular rhythm, normal capillary refill, normal heart soundsRespiratory : decreased breath sounds, on oxygen, wheezing, symmetric expansion, poor air movement, mild distress Abdomen: non-tender, normal bowel sounds, soft, no guardingExtremities: moves all, no cyanosis, no edemaMusculoskeletal: normal inspection, no muscle spasm, no paraspinal tendernessNeuro/BROILER CHEF OR COOK: alert, oriented X 3, normal speech, no motor deficits, no sensory deficitsSkin: dry, normal color, normal temperaturePsychiatry: abnl judgment/insight, no hallucinations, irritable mood ResultsFindings/Data:Laboratory Tests 03/15 02/18 7 1206 0711 Blood Gas Puncture Site LR UNKNOWN AB G pH (7.35 - 7.45 mmHg) 7.27 L [...] Rate (/MIN) 14.0 FiO2 (%) 50 21 PEE P (cmH2O) 5.0 Pressure Support (cmH2O) 12 Laboratory Tests 03/15 03/15 0632 0632 Chemistr y Sodium (137 - 145 MMOL/L) 128 L [...] (Auto) (1.0 - 3.8 K/mm3) 0.51 L [place] # (Auto) (0.1 - 0.8 K/mm3) 0.10 Eos # (Auto) (0.0 - 0.2 K/mm3) 0.00 Baso # (Auto) (0.0 - 0.2 K/mm3) 0.01 Nucleated RBCs # (Man) (0.0 - 0.1 K/mm3) 0.00 Radiology data:Recent Impressions:RADIOLOGY - XR CHEST 1V 03/15 0647 Report Impression - Status: SIGNED Entered: 03/15/2023 0702 IMPRESSION: No acute radiographic abnormalityImpression By: [id number] - Miroslava Cote MD Diagnosis, Assessment Plan Free Text DxA P NotesFree Text DxA P Notes: Assessment/Plan#Acute COPD exacerbation IV steroids, given solu-medrol 125mg and decadron prior to arrival here. Will continue with 40mg w4fwXst tx, scheduled duonebs and budesonide PRN antitussives #Acute on chronic respiratory failure with hypercapnia Transition pt from NC t o bipap. Pt is threatening non compliance in regards to bipap use as he is uncomfortable with it. Explained to pt importance of bipap use at this time. Pt using 2L NC at home. Repeat ABG later todayEncourage incentive spirometer use when taking breaks off bipap Manage COPD as abov e Bicarb elevated on labs likely as a compensatory measure #Hypotension, improved #Hx of hypertension Present on arrival, improved on my evaluation with BP at bedside 100/57 Pt thinks h e is on multiple rx for BP management - active rx for HCTZ noted and pt was previously on Coreg an d Benazapril but unsure if he is on all 3 now. Willneed to verify with his sister Joslyn who is unreachable via phone at this time Hold all BP meds Pt is on steroids which should support BP a t this time. Given 1L NS bolus in ED, will hold of f on further fluid and use as needed based on clinical volume assessment due to hx of CHF. Consider midodrine as needed Order Echo #Hyponatremia Suspect due to HCTZ use. Hold HCTZ and monitor sodium levels #Paroxysmal Afib Resum e Xarelto. He is unsure of being on rate control med at this time. Will need to verify med list with his sister when reached Keep on telemetry #Chronic systolic CHF s/p AICD Pt previously known to be on JOSE-I and beta chani but he is unsure if still onthis. 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 start nicotine patch VTE ppx: Xarelto Full CodeDispo: likely dc home, pending clinical improvement Bertram marisol spent is > 60 mins DOS: 03/15/2023 Quality: Gen Med Crit Care VTE ProphylaxisVTE prophylaxis initiated: yes Current MedicationsUnable to obtain:Unable to obtain an accurate home medication list at this time. The patient is in an urgent or emergent medical situation where time is of the essence. To delay treatment would jeopardize the patient's health status on the da y of the encounter. BMI Screening > 25 or < 18.5Patient's BMI:Current BMI: 21.6 BMI status/follow-up: nml BMI,no counseling department chair needed Rudy Xiao 03/15/232232:Attestations Teaching Physician Kxyvdzqxaai4xb visit w/ resident:I was present with the resident during the history and exam. I discussed the case with the resident and . . . agree with the findings and plan as documented in the resident's note. echocards folloingaicd interrogationcont xareltohas home o 2 Electronically Signed by Rudy Xiao MD on 3 at 2235 at 2343 RPT #:[id number] OF REPORTHPHistory and physical [id number]:52:00Z.[id number] 9 AVAvailable for patient [id number]:35:21 2023-03-15 07:02:00 [id number]:02:00 [facility] ([facility])EMERGENCY PROVIDER REPORTREPORT#:[id number] REPORT STATUS: SignedDATE:03/15/23 TIME: 07 PATIENT: JUAN C MONGE UNIT #: [id number]#: [id number] [address] 62 SEX: M PCP PHYS: Undefined ProviderSERVICE AUTHOR: Royce Davison MD LOCATION: [facility] * ALL edits or amendments must be made on the electronic/computer document * See AddendumHPI-General Illness Free Text HPI NotesFree Text HPI Cuuwd31-lvhz-mzh female past medical history COPD, hypertension, hyperlipidemia, A-fib on [facility]. Complaining of shortness of breath over the last 2 days accompanied by productive cough with denies fever, chills, chest vomiting, diarrhea, dysuria or any other complaints at thi s time. Was given 125 of Solu-Medrol as well as nebulizers, Decadron, Pepcid, and 500 of Levaqui n at the outlying facility. Was reportedly in respiratory distress and placed on BiPAP. Patidomitila t reportedly demanded for BiPAP to be taken off in routeto this ER and on initial evaluation, he is comfortable on nasal cannula. GeneralInitial Greet Date/Time 03/15/23 0525 PresentationChief Complaint Shortness of breath Review of Systems Free Text ROS NotesFree Text ROS NotesConstitutional:Denies: Chills, Fatigue. Eyes:Denies: Blurry Vision, Diplopia. ENT:Denies : Sinus problem, Sore throat. Respiratory:+Cough, Shortness of breath. Cardiovascular:Denies: Ches t pain, Palpitations. GI: Denies: Abdominal pain, Nausea, Vomiting. : Denies: Dysuria, Flank pain. Musculoskeletal:Denies: Extremity Pain, Laceration. HematologicDenies: Bleeding. NeurologicDenies: Change LOC, Confusion, Slurred speech. Past Medical History - AdultStated Complaint COPD HYPOTENSIONAllergiesCoded Allergies:No Known Allergies (06/19/20) Home MedicationsActive ScriptsCEPHALEXIN (KEFLEX) 500 MG PO TID CEPHALEXIN (KEFLEX) 500 MG PO TID #15 CAPS Prov: 06/20/20ACETAMINOPHEN/CODEINE (TYLENO L WITH CODEINE #3 300/30 MG) 1 TAB PO Q4H PRN PRN ACUTE PAIN ACETAMINOPHEN/CODEINE (TYLENOL WITH CODEINE #3 300/30 MG) 1 TAB PO Q4H PRN PRN ACUTE PAIN #10 TABS Prov: 06/20/20 Reported MedicationsASPIRIN EC (ECOTRIN) 81 MG PO DAILY CARVEDILOL (COREG) 25 MG PO BID MEALS OMEPRAZOLE ER (PriLOSEC) 40 MG PO DAILY busPIRone (BUSPIRONE) 30 MG PO BID POTASSIUM CHLORIDE ER (MICRO-K) 10 MEQ PO BID BENAZEPRIL (LOTENSIN) 10 MG PO DAILY HYDROCHLOROTHIAZIDE (HYDRODIURIL) traMADol (ULTRAM) 50 MG PO DAILY PRN PRN PAIN/ANXIETY IPRATROPIUM (ATROVENT 0.02%) 500 MC G INH RTQ6H ALBUTEROL (ALBUTEROL 2.5 MG/3 ML (75mL)) 2.5 MG NEB RTQ4H PRN PRN WHEEZING Calculated Suicide Risk (nurs) No riskAdditional Medical HistoryCOPD, hypertension, hyperlipidemia, A-fib Smoking status for patient s 13 years old or older: Unknown,if ever smoked Physical Exam Vital SignsVital SignsFirst Documented: Result Date Time Pulse Ox 99 03/15 0521 B/P 92/58 03/15 0521 B/P Mean 69 03/15 0521 Temp 36.9 03/15 0521 Pulse 78 03/15 0521 Resp 20 03/15 05 O2 Delivery Nasal cannula 03/15 534 O2 Flow Rate 2 03/15 534 Last Documented: Resul t Date Time Pulse Ox 98 03/15 0645 B/P 90/53 06/ 7 0645 B/P Mean 65 03/15 0645 O2 Delivery Room air 03/15 645 Pulse 72 03/15 0645 Resp 16 03/15 0645 O2 Flow Rate 2 03/15 0611 Temp 36.9 03/15 0521 Review of Vital Signs Reviewed Free Text PE NotesFree Text PE NotesGeneral/Const: Awake, No acute distressHead: Atrauamtic, NormocephalicEyes: EOMI. Anicteric sclerae. ENT: Airway patent. Atraumatic. Resp/Chest: Speaking full sentences without conversational dyspnea or acute respiratory distress. Lung sounds fairly diminished bilaterally.Cardiovascular: Heart rat e NL, Regular rhythm, No gallops/rubs appreciated. Abdomen/GI: Non-tender in all abdominal quadrants. No guarding, No rebound. No distentionSkin: Warm, DryNeurologic: Alert Oriented X3, Speech normal. Interpretation Diagnostics Lab Results InterpretationResultsLaboratory Tests 03/15/23 06:[Embedded Image Not Available]Laboratory Tests: 03/15 632 Chemistry Sodium (137 - 145 MMOL/L) 128 L Potassium (3.5 - 5.1 MMOL/L) 5.4 H Chloride (98 - 107 MMOL/L) 90 L Carbon Dioxide (22 - 30 MMOL/L) 36 H Anion Gap (14 - 24 MMOL/L) 7 L BUN (9 - 20 MG/DL) 17 Creatinine (0.66 - 1.2 5 MG/DL) 0.70 Glomerular Filtr Rate > 60 Glucose (74 - 106 MG/DL) 109 H Calcium (8.4 - 10.2 MG/DL ) 7.7 L Troponin I (0.012 - 0.033 NG/ML) < 0.012 L NT-Pro-B Natriuret Pep (pg/mL) 79.0 Hematology WBC (3.8 - 9.8 K/MM3) 7.4 RBC (3.95 - 5.67 M/MM3 ) 3.53 L Hgb (12.4 - 16.7 G/DL) [...] (Auto) (1.0 - 3.8 K/mm3) 0.51 L [place] # (Auto) (0.1 - 0.8 K/mm3) 0.10 Eos # (Auto) (0.0 - 0.2 K/mm3) 0.00 Baso # (Auto) (0.0 - 0.2 K/mm3 ) 0.01 Nucleated RBCs # (Man) (0.0 - 0.1 K/mm3) 0.00 Recent Impressions:RADIOLOGY - XR CHEST 1V 03/15 0647 Report Impression - Status: SIGNED Entered: 03/15/2023701 IMPRESSION: No acute radiographic abnormalityImpression By: [email or web address] 8 - Miroslava Cote MD Re-Evaluation MDM Free Text MD [place] NotesFree Text MDM NotesHistory and physical as above. Labs with mild electrolyte derangements including hyponatremia and hyperkalemia. Given fluids. Chest x-ray with no acute abnormality noted. Given additional breathing treatments for diminished lung sounds. Discussed patient with and admitted to the inpatient medicine service for further management/workup. ED CourseMedication(s) OrderedMedication(s) Ordered:Autonomic Drugs Sig/Imer Start time Last Medication Dose Route Stop Time Status Admin Albuterol Sulfate 15 MG X1ED STA 03/15 0632 DC 03/15 NEB 03/15 0633 0642 Patient Discharge Departure Vital Signs/ConditionVital SignsFirst Documented: Result Date Time Pulse Ox 99 03/15 0521 B/P 92/58 03/15 0521 B/P Mean 69 03/15 052 1 Temp 36.9 03/15 0521 Pulse 78 03/15 0521 Resp 2 0 03/15 0521 O2 Delivery Nasal cannula 03/15 0534 O2 Flow Rate 2 03/15 0534 Last Documented: Resul t Date Time Pulse Ox 98 03/15 0645 B/P 90/53 03/15 0645 B/P Mean 65 03/15 0645 O2 Delivery Room air 03/15 0645 Pulse 72 03/15 0645 Resp 16 03/15 064 5 O2 Flow Rate 2 03/15 0611 Temp 36.9 03/15 0521 All vital signs available at the time of this entry have been reviewed. Clinical ImpressionClinical ImpressionPrimary Impression: COPD with acute exacerbationSecondary Impressions: Hx of acute respiratory distress syndrome, Hyponatremia Disposition DecisionHospitalize Hosp Physician Name Una Xiao MD Request Time 07 Request Date 03/15/23 )( Accepts Hospitalization Yes )( Accepted Time 071 4 )( Accepted Date 03/15/23 at 1029 Addendu m 1: 03/15/23 1029 by Royce Davison MD Patient AddendumAddendumInterpretation of EKG performed at 0 636: Rate 71, normal sinus rhythm, baselinewander present but no significant ST segment T wave abnormality definitive for acute ischemia. at 1029 Addendum 2: 03/15/23 1240 by Royce Davison MD Patient AddendumAddendumRepeat VBG w/ improvement, pH 7.27, pCO2 79. On reassessment, awake, alert, no t somnolent. Discussed with inpatient team, plan for continued BiPAP on IMCU. at 1240 Addendum 3: 03/15/23 1918 by Royce Davison MD Patient AddendumAddendumAuthorized and Performed by: Royce Davison MD Total critical care time: 35 minutes For acute hypercapnic hypoxic respiratory failure requiring BiPAP and serial reassessments. Due to a high probability of clinically significant, life threatening deterioration, the patient required my highest level of preparedness to intervene emergently an d I personally spent this critical care time directly andpersonally managing the patient. Thi s critical care time included obtaining a history; examining the patient; pulse oximetry; ordering and review of studies; arranging urgent treatmen t with development of a management plan; BIPAP management, evaluation of patient's response to treatment; frequent reassessment; and, discussions with other providers. This critical care time was performed to assess and manage the high probability of imminent, life-threatening deterioration that could result in multi-organ failure including specifically respiratory failure and potential respiratory arrest. It was exclusive of separately billable procedures and treating other patients and teaching time. at 1918RPT #:[id number] OF REPORTEDEmergency department [id number]:02:00Z.[id number] a ilable for patient wtuvKGKIHPMGZHYWSB5714-01-32Q32:29:15 2020-06-20 06:17:00 [id number]:17:00 [facility] ([facility])Cardiology Progress NoteREPORT#:[id number] REPORT STATUS: SignedDATE:06/20/20 TIME: 616 PATIENT: JUAN C MONGE UNIT #: [id number]#: [id number] [facility] [birth year] AGE: 59 SEX: M ATTEND: Tyrell Mckeon [facility] AUTHOR: Tyrell Mckeon MD * ALL edit s or amendments must be made on the electronic/computer document * SubjectiveChief Complaint:AICDPatient reports:No: chest pain, palpitations, shortness of breath. Objective GeneralVS/I O:24 hour I O ending at 0700: 06/20 0700 06/19 1900 Intake Total 680 Output Total 200 400 Balance 480 -400 Intake, Oral 680 Number Voids 2 1 Output, Urine 200 400 Vital Signs: Date Time Temp Pulse Resp B/P B/P Pulse O2 O2 Flow FiO2 Mean Ox Delivery Rate 06/20 528 97.9 72 18 91/62 71.7 91 Room air 06/19 2222 98.1 76 18 109/70 82.7 95 Nasal cannula 06/19 2155 92 Room air 06/19 2002 97.9 75 18 110/71 84.2 92 Room air 06/19 1735 97.7 65 14 122/75 90.4 93 Patient Weight Weight (lb): Weight (oz): Weight (kg): Medications:Active Meds + DC'd Last 24 HrsAspirin 81 MG DAILY PO Hydrochlorothiazide 25 MG DAILY PO Lisinopril 10 MG DAILY PO Buspirone HCl 30 MG BID PO Carvedilol 25 MG BID MEALS PO Potassium Chloride 10 MEQ BID PO Ipratropium [place] 0.5 MG RTQ6H INH Cefazolin Sodium 1,000 MG Q8H IV Sodium Chloride 10 MLPantoprazole 40 M G DAILY PO Albuterol Sulfate 2.5 MG RTQ4H PRN PRN NEB Tramadol HCl 50 MG DAILY PRN PRN PO Hydrocodone Bitart/Acetaminophen 1 TAB Q4H PRN PRN PO Etomidate 0 .STK-MED ONE .ROUTE (DC) Midazolam HCl 0 .STK-MED ONE .ROUTE (DC) Fentany l Citrate 0 .STK-MED ONE .ROUTE (DC) Lidocaine 0 .STK-MED ONE .ROUTE (DC) Cefazolin Sodium 0 .STK-MED ONE .ROUTE (DC) Iopamidol 0 .STK-MED ON E .ROUTE (DC) Sodium Chloride 1,000 ML .STK-MED ONE IV (DC) Sodium Chloride 500 ML .STK-MED ONE IV (DC) Lorazepam 1 MG NOW ONE PO (DC) Lorazepam 0 .STK-MED ONE .ROUTE (DC) Sodium Chloride 1,000 ML Q13H IV Physical ExamGeneral appearance: alert, awake, oriented, no acute distressHead/Eyes: atraumatic, normocephalicENT: moist mucosal membranes, normal nose, normal pharynxNeck: no JVDCardiovascular: CV assessment : regular rate and rhythmRespiratory: clear to auscultation, no distressLower extremity: LE assessment: no edemaMusculoskeletal: full range of motionNeuro/BROILER CHEF OR COOK: alert, oriented X 3, CN II-XII intactSkin: dry, intactPsychiatry: normal affect, normal judgment/insight, normal mood ResultsFindings/Data:Laboratory Tests 06/19 1241 Chemistry Sodium (137 - 145 MMOL/L) 140 Potassium (3.5 - 5.1 MMOL/L) 4.6 Chloride (98 - 107 MMOL/L) 99 Carbon Dioxide (22 - 30 MMOL/L) 3 3 H Anion Gap (14 - 24 MMOL/L) [...] PT Patient/Control Mix (9.4 - 12.5 SECONDS) 12.7 H Laboratory Tests 06/19 124 Hematology WBC (3.8 - 9.8 K/MM3) 6.5 [...] %) 61.0 Lymph % (Auto) (14 - 4 4 %) 27.8 [place] % (Auto) (4 - 13 %) 8.6 Eos % (Auto ) (0 - 6 %) 1.7 Baso % (Auto) (0 - 2 %) 0.6 Neut # (Auto) (2.0 - 7.6 K/mm3) 3.99 Lymph # (Auto) (1. 0 - 3.8 K/mm3) 1.82 [place] # (Auto) (0.1 - 0.8 K/mm3 ) 0.56 Eos # (Auto) (0.0 - 0.2 K/mm3) 0.11 Baso # (Auto) (0.0 - 0.2 K/mm3) 0.04 Immature Gran % (0.0 - 2.0 %) 0.3 Nucleated RBC % (0 - 1.0 %) 0. 0 Nucleated RBCs # (Man) (0.0 - 0.1 K/mm3) 0.00 Laboratory Tests 06/19 113 Serology SARS-CoV-2 Ag (Rapid) (Negative) NEGATIVE Laboratory Tests 06/19 124 Chemistry Magnesium (1.6 - 2.3 MG/DL) 2.2 Laboratory Tests 06/19 1241 Coagulation APT T (25.1 - 36.5 SECONDS) 30.8 Radiology data:Recent Impressions:RADIOLOGY - XR CHEST 1V 06/19 1610 * Report Impression - Status: SIGNED Entered: 06/19/2020 1625 IMPRESSION:The right lung apex i s excluded from the dyaoy-gr-rcwe. No acutecardiopulmonary abnormality is identified.Impression By: Heather Marshall MD Diagnosis, Assessment Plan Free Text DxA P NotesFree Text DxA P Notes:IMP: Chronic systolic heart failure s/p [place] AICD - singl e lead PLAN: AICD interrogation d/c home if stable . at 0818 RPT #:[id number] OF REPORTPRProgress [id number]:17:00Z.[id number] l able for patient bkmvRKJCUTBJIUTEEO3399-77-49V30:18:31 2020-06-19 16:03:00 [id number]:03:[id number] [place] [address] PATIENT NAME: JUAN C MONGE ADMIT DATE: 06/19/20ACCOUNT NO: [id number] JULY [place] Leon NO: Z.354 AGE: 59 REPORT TYPE: OPERATIVE REPORT SEX: M ADMITTING PHYSICIAN:Tyrell Mckeon MD ATTENDING PHYSICIAN:Tyrell Mckeon MD OPERATION DATE: 06/19/2020 PROCEDURES:1. Non-thoracotomy single lead AICD placement.2. Defibrillation threshold testing. PREOPERATIVE DIAGNOSES:1. 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 [place] Heart Association class III congestive heart failure. POSTOPERATIVE DIAGNOSES:1. 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 [place] Heart [employer] class III congestive heart failure. SURGEON: Tyrell Mckeon MD DIRECTOR OF PUBLICATIONS: None. ANESTHESIA: Local anesthesia with 1% lidocaine and moderate sedation. PROCEDURE DETAILS: After informed consent was obtained explaining to thepatient th e risks, benefits, and alternatives, the patient was brought to thecardiac catheterization lab in the fasting postabsorptive state. He was preppedand draped in sterile fashion. Local anesthesia was applied over theinfraclavicular area with 1% lidocaine. Access to left subclavia n vein wasobtained using modified Seldinger technique with a micropuncture kit. One wirewas placed in low right atrium and secured proximally. Additional 1% lidocainewas applied t o the infraclavicular area. The pocket was formed with sharp andblunt dissection as well as electrocautery. The wires brought in to the pocket. The pocket was flushed with antibiotic-containing solution. A 7-Icelandic sheathwas advanced over the wire and left subclavian vein. The dilator and wire wereremoved. An active fixation right ventricula r lead was advanced via the sheathunder fluoroscopic guidance and secured in the right ventricular apex. Adequatepacing and sensing parameters were confirmed. The sheath was peeled away. Thelead was secured in the pocket with 0 Ethibond suture around the suture sleeve. The pocket was again flushed with antibiotic-containing solution. The generatorwas connected to lead and placed in the pocket. The generator secured in pocketwith 0 Ethibond suture. Defibrillation threshold testing was carried out asoutlined below. The pocket was closed in 3 layers using 2-0 Vicryl withsubcutaneous layers and 4-0 Vicryl for the skin. Steri-Strips were applied to PATIENT NAME: JUAN C MONGE wound externally. The patient tolerated the procedure well with nocomplications. IMPLANT DATA:1. Pulse generator: [employer] Cory model DA7483-30S, serial #[id number]. Right ventricular lead; [employer] model 7120Q/58, serial number [id number]. STIMULATION THRESHOLD DATA: Right ventricle R waves greater than 12 millivolts,impedance 610 ohms, threshold 0.5 volts at 0.4 milliseconds. DEFIBRILLATION THRESHOLD TESTING: Induction with DC fibber, energy 25.4 joules,charge time 6 seconds, impedance 45 ohms, result sinus rhythm. The patienttolerated the procedure well with no complications. CONCLUSION:1. Successful non-thoracotomy single lead AICD placement.2. At least 10 joule defibrillation threshold margin.3 . No complications. Dictated By: Tyrell Mckeon MD WT: OP:ZAILIN/LUIS ANGEL/NTSDD: 06/19/2020 16:03:36DT: 06/19/2020 17:31:17Conf#: [id number]/DID#: [id number] cc: Omid Tenorio MD Authenticated by Tyrell Mckeon MD On 06/23/2020 06:02:06 AM at 0602 PATIENT NAME: JUAN C MONGE [id number]:31:00Z.[id number] i lable for patient [id number]:03:33 2020-06-19 13:14:00 [id number] [address] [place] [address] PATIENT NAME: JUAN C MONGE ADMIT DATE: 06/19/20ACCOUNT NO: [id number] JULY De Leon NO: Z.354 AGE: 59 REPORT TYPE: ELECTROCARDIOGRAM SEX: M ADMITTING PHYSICIAN:Tyrell Mckeon MD ATTENDING PHYSICIAN:Tyrell Mckeon MD Order:[id number] Reason : CHF Test Date/Time Stamp:TueJun 19 2020 13:14:54Blood Pressure : / mmHGVent. Rate : 060 BPM Atrial Rate : 060 BPM P-R Int : 146 ms QRS Dur : 094 ms QT Int : 430 ms P-R-T Axes : 065 055 070 degrees QTc Int : 430 ms Normal sinus rhythmHIGH VOLTAGES IN PRECORDIAL LEADSNormal ECGNo previou s ECGs availableConfirmed by TIARA BLUE MD ([id number] ) on 06/20/2020 11:57:07 AM Referred By: Tyrell Mckeon Confirmed by:TIARA BLUE MD Electronicall y Signed by Tiara Blue MD on 06/20/20 at 1157 PATIENT NAME: JUAN C MONGE .[id number] AVAvailable for patient [id number]:57:37
[2023-08-19] MEDS ORDERED: ALBUTEROL 2.5 MG/3 ML NEB SOL ONE (03:07)
[2023-08-19] MEDS ORDERED: IPRATROPIUM BROM 0.5MG/2.5ML ONE ×2 (03:07→07:51)
[2023-08-19] MEDS ORDERED: METHYLPREDNISOLONE 125 MG INJ ONE (03:21)
[2023-08-19] MEDS ORDERED: NA CHLORIDE 0.9% 250 ML ONE (03:22)
[2023-08-19] MEDS ORDERED: AZITHROMYCIN 500 MG INJ IVPB ONE (03:22)
[2023-08-19 03:38] LABS: Absolute Lymphocytes (CBC) 0.6 K/uL (0.7-4.9); Hematocrit 36.1 % (39.6-49.0); Lymphocytes % 7.6 % (15.3-44.8); MCV 95.1 fL (80-100); MPV 8.4 fL (7.6-11.3); Platelets 160 thou/uL (152-406); RBC Red Blood Cell Count 3.79 M/uL (4.33-5.43)
[2023-08-19 03:50] LABS: ALT/SGPT 11 U/L (16-61); Alkaline Phosphatase 52 U/L (45-117); BUN Blood Urea Nitrogen 23 mg/dL (7-18); Bicarbonate 38 mEq/L (21-32); Bilirubin Total 0.4 mg/dL (0.2-1.0); Glomerular Filtration Rate 89 ml/min (=/>90); Glucose Level 157 mg/dL (74-106); Potassium 3.8 mEq/L (3.5-5.1); Protein, Total 5.9 g/dL (6.4-8.2); Sodium Level 141 mEq/L (136-145); Troponin High Sensitivity 7.2 pg/mL (<58.9)
[2023-08-19 03:52] LABS: AST/SGOT < 3 U/L (15-37)
[2023-08-19 04:41] LABS: Blood Morphology Comment NOT SEEN (NOT SEEN); Platelet Estimate ADEQ
--- NOTE | 2023-08-19 04:50 | EDPHYS ---
Physician Documentation [facility] Name: Juan C Monge Age: 63 yrs Sex: Male : 1960 Arrival Date: 08/19/2023 Time: 02:41 Bed 6 Private MD: ED Physician Ramesh Hardy HPI: 08/19 02:51 This 63 yrs old Male presents to ER via Unassigned with complaints of ec2 Breathing Difficulty. 02:51 Patient arrives today due to concern for 1 week of progressive shortness of breath. ec2 Patient with history of COPD, has not been using his inhalers at home. Patient reports persistent cough. No vomiting or diarrhea.. Historical: - Allergies: 03:00 No Known Allergies; vc1 - PMHx: 03:00 Atrial Fib; COPD; CVA; Hyperlipidemia; Hypertension; Myocardial infarction; skull vc1 fracture; - PSHx: 03:00 Appendectomy; pacemaker; vc1 - Immunization history:: Client reports receiving the 1st dose of the Covid vaccine, Flu vaccine is up to date. - Social history:: Smoking status: Patient reports the use of cigarette tobacco products, smokes one-half pack cigarettes per day. ROS: 02:51 Constitutional: as per hpi ec2 Exam: 02:51 Constitutional: GEN: NAD Head: atraumatic Eyes: EOMI Ears: External ears are ec2 normal. CV: regular rate LUNGS: Tachypnea noted, diminished aeration throughout all lung manriquez ABD: non-distended SKIN: no evidence of rashes MSK: no evidence of trauma NEURO: moves all extremities equally Vital Signs: 02:57 BP 142 / 117; Pulse 74; Resp 22; Pulse Ox 80% on R/A; vc1 03:23 BP 120 / 82; Pulse 80; Resp 18; Pulse Ox 100% on Nebulizer Mask; vc1 03:40 Weight 68.04 kg; Height 5 ft. 10 in. ; vc1 03:40 Body Mass Index 21.52 (68.04 kg, 177.8 cm) vc1 MDM: 02:42 Patient medically screened. ec2 02:51 ED course: Patient arrives today due to concern for progressive shortness of breath ec2 examination remarkable for respiratory findings as noted above. Will obtain lab work, EKG, chest x-ray, give the patient a DuoNeb, steroids and azithromycin for presumed COPD exacerbation. Additionally considered other processes such as ACS, CHF.. 03:33 Data reviewed: vital signs. ED course: After DuoNeb administration, patient with marked ec2 improvement in symptoms and improvement in his oxygenation and aeration throughout all lung manriquez. Will continue to monitor and wait for lab work.. 03:50 ED course: EKG independently reviewed and interpreted by me, shows normal sinus rhythm, ec2 rate of 73, no acute ST elevations, nonconcerning intervals, significant motion artifact noted. . 03:53 ED course: Metabolic profile is reassuring. Troponin within normal ranges.. CBC is ec2 unremarkable. . 04:03 ED course: Chest x-ray independently reviewed and interpreted by me, shows no acute ec2 intrathoracic process. . 12 02:45 Order name: CBC with Diff; Complete Time: 04:45 ec2 08/19 02:45 Order name: CMP; Complete Time: 03:53 ec2 08/19 02:45 Order name: Troponin High Sensitivity; Complete Time: 03:53 ec2 08/19 02:48 Order name: Influenza Screen (a \T\ B); Complete Time: 04:45 ec2 08/19 03:50 Order name: Manual Differential; Complete Time: 04:45 EDMS 08/19 03:54 Order name: SARS-COV-2 RT PCR; Complete Time: 04:45 EDMS 08/19 04:53 Order name: ABG Arterial Blood Gas EDMS 08/19 05:02 Order name: Urinalysis w/ reflexes EDMS 08/19 02:45 Order name: CXR XRAY ec2 08/19 02:45 Order name: EKG; Complete Time: 02:45 ec2 08/19 02:45 Order name: EKG - Nurse/Tech; Complete Time: 03:50 ec2 Administered Medications: 03:05 Drug: DuoNeb Nebulize (3:1) (2.5 mg - 0.5 mg) 3 ml Nebulizer once Route: Nebulizer; vc1 04:21 Follow up: Response: No adverse reaction km8 03:20 Drug: MethylPrednisoLONE IVP 125 mg IVP once Route: IVP; Site: right forearm; vc1 04:21 Follow up: Response: No adverse reaction km8 03:20 Drug: AZITHromycin IVPB 500 mg IVPB once over 1 hrs; (mix in 250 mL NS) Route: IVPB; vc1 Infused Over: 1 hrs; Site: right forearm; 04:21 Follow up: IV Status: Completed infusion; IV Intake: 250ml km8 05:17 Drug: Nicotine Transdermal Patch 21 mg/24 hr 1 patches Transdermal once {Note: left vc1 shoulder.} Route: Transdermal; Site: affected area; Disposition Summary: 08/19/23 04:49 Hospitalization Ordered Notes: Hospitalization Status: Inpatient Admission ec2 Provider: Rodrigue Mcclelland ec2 Condition: Stable ec2 Problem: an acute exacerbation ec2 Symptoms: have improved ec2 Bed/Room Type: Standard ec2 Location: Telemetry/MedSurg (Inpatient)(08/19/23 11:52) eb Room Assignment: [facility](08/19/23 11:52) Diagnosis - COPD/ Chronic obstructive pulmonary disease with (acute) exacerbation ec2 Forms: - Medication Reconciliation Form ec2 - SBAR form ec2 - Leadership Thank You Letter ec2 Signatures: Dispatcher [employer] EDMS Karma Tristan, SERA RN Krissy Jenkins Vanessa, RN RN vc1 Ramesh Hardy MD MD ec2 Keyla Acevedo RN km8 Corrections: (The following items were deleted from the chart) 03:54 02:48 SARS-COV-2 Antigen Rapid+I.LAB.BRZ ordered. EDTX EDTX 05:15 04:49 Telemetry/MedSurg (Inpatient) ec2 cg 05:15 04:49 ec2 cg 11:52 05:15 [facility] ER HOLD cg eb 11:52 05:15 ERHOLD- cg eb
--- NOTE | 2023-08-19 04:50 | ER ---
Nurse's Notes [facility] Name: Juan C Monge Age: 63 yrs Sex: Male : 1960 Arrival Date: 08/19/2023 Time: 02:41 Bed 6 Private MD: Diagnosis: COPD/ Chronic obstructive pulmonary disease with (acute) exacerbation Presentation: 08/19 02:57 Chief complaint: Patient states: I've been dealing with this for a while now but vc1 tonight I woke up around midnight getting more and more short of breath and now I can't breath. Coronavirus screen: Vaccine status: Patient reports receiving the 1st dose of the Covid vaccine. Client denies travel out of the [place] in the last 14 days. cough unrelated to allergies, difficulty breathing, shortness of breath, Client presents with at least one sign or symptom that may indicate coronavirus-19. Ebola Screen: Patient negative for fever greater than or equal to 101.5 degrees Fahrenheit, and additional compatible Ebola Virus Disease symptoms Patient denies exposure to infectious person. Patient denies travel to an Ebola-affected area in the 21 days before illness onset. No symptoms or risks identified at this time. Initial Sepsis Screen: Does the patient meet any 2 criteria? RR > 20 per min. No. Patient's initial sepsis screen is negative. Does the patient have a suspected source of infection? No. Patient's initial sepsis screen is negative. Risk Assessment: Do you want to hurt yourself or someone else? Patient reports no desire to harm self or others. Onset of symptoms was August 19, 2023 at 00:00. Care prior to arrival: None. Activity prior to arrival: None. 02:57 Method Of Arrival: Wheelchair vc1 02:57 Acuity: JESSI 2 vc1 Triage Assessment: 03:03 General: Appears distressed, Behavior is anxious. Pain: Denies pain. EENT: No deficits vc1 noted. No signs and/or symptoms were reported regarding the EENT system. Neuro: Level of Consciousness is awake, alert, obeys commands, Oriented to person, place, time, situation, Appropriate for age. Cardiovascular: Reports shortness of breath. Respiratory: Reports shortness of breath at rest cough that is productive, labored breathing since 0000 Onset: The symptoms/episode began/occurred yesterday, the patient has moderate shortness of breath. Respiratory: Airway is patent Respiratory effort is labored, Respiratory pattern is tachypnea. GI: No deficits noted. No signs and/or symptoms were reported involving the gastrointestinal system. : No deficits noted. No signs and/or symptoms were reported regarding the genitourinary system. Derm: No deficits noted. No signs and/or symptoms reported regarding the dermatologic system. Musculoskeletal: No deficits noted. No signs and/or symptoms reported regarding the musculoskeletal system. Historical: - Allergies: 03:00 No Known Allergies; vc1 - PMHx: 03:00 Atrial Fib; COPD; CVA; Hyperlipidemia; Hypertension; Myocardial infarction; skull vc1 fracture; - PSHx: 03:00 Appendectomy; pacemaker; vc1 - Immunization history:: Client reports receiving the 1st dose of the Covid vaccine, Flu vaccine is up to date. - Social history:: Smoking status: Patient reports the use of cigarette tobacco products, smokes one-half pack cigarettes per day. Screenin:02 [facility] ED Fall Risk Assessment (Adult) History of falling in the last 3 months, vc1 including since admission No falls in past 3 months (0 pts) Confusion or Disorientation No (0 pts) Intoxicated or Sedated No (0 pts) Impaired Gait No (0 pts) Mobility Assist Device Used No (0 pt) Altered Elimination No (0 pt) Score/Fall Risk Level 0 - 2 = Low Risk Oriented to surroundings, Maintained a safe environment, Educated pt \T\ family on fall prevention, incl call for assistance when getting out of bed. Abuse screen: Denies threats or abuse. Nutritional screening: No deficits noted. Tuberculosis screening: No symptoms or risk factors identified. Assessment: 03:02 Pain: Complains of pain in chest. Cardiovascular: Rhythm is Respiratory: Airway is vc1 patent Respiratory effort is labored, Respiratory pattern is symmetrical, tachypnea Breath sounds are diminished. 03:24 Reassessment: Patient and/or family updated on plan of care and expected duration. Pain vc1 level reassessed. Patient is alert, oriented x 3, equal unlabored respirations, skin warm/dry/pink. Patient denies pain at this time. Patient states feeling better. Patient states symptoms have improved. 04:00 Reassessment: No changes from previously documented assessment. Patient and/or family vc1 updated on plan of care and expected duration. Pain level reassessed. Patient is alert, oriented x 3, equal unlabored respirations, skin warm/dry/pink. 04:00 General: Pt refuses blood pressure, states it hurts and his pressure is always ok. vc1 05:00 Reassessment: Patient and/or family updated on plan of care and expected duration. Pain vc1 level reassessed. Patient is alert, oriented x 3, equal unlabored respirations, skin warm/dry/pink. Pt oxygen saturation at 87% placed on 2L nc. 06:00 Reassessment: No changes from previously documented assessment. Patient and/or family vc1 updated on plan of care and expected duration. Pain level reassessed. Patient is alert, oriented x 3, equal unlabored respirations, skin warm/dry/pink. 06:25 Reassessment: Dr. Pruitt at bedside. vc1 06:46 Reassessment: No changes from previously documented assessment. Patient and/or family vc1 updated on plan of care and expected duration. Pain level reassessed. Patient is alert, oriented x 3, equal unlabored respirations, skin warm/dry/pink. Vital Signs: 02:57 BP 142 / 117; Pulse 74; Resp 22; Pulse Ox 80% on R/A; vc1 03:23 BP 120 / 82; Pulse 80; Resp 18; Pulse Ox 100% on Nebulizer Mask; vc1 03:40 Weight 68.04 kg; Height 5 ft. 10 in. ; vc1 03:40 Body Mass Index 21.52 (68.04 kg, 177.8 cm) vc1 ED Course: 02:42 Patient arrived in ED. ag3 02:42 Ramesh Hardy MD is Attending Physician. ec2 02:57 Mikayla Nunez RN is Primary Nurse. vc1 02:58 CXR XRAY In Process Unspecified. EDMS 03:00 Triage completed. vc1 03:02 Arm band placed on right wrist. vc1 03:04 Patient has correct armband on for positive identification. Bed in low position. Call vc1 light in reach. Client placed on continuous cardiac and pulse oximetry monitoring. NIBP monitoring applied. 03:51 EKG completed in triage. Results shown to MD. vc1 04:49 Rodrigue Mcclelland MD is Hospitalizing Provider. ec2 06:46 Provided Education on: non smoking facility. vc1 06:46 No provider procedures requiring assistance completed. Patient admitted, IV remains in vc1 place. Administered Medications: 03:05 Drug: DuoNeb Nebulize (3:1) (2.5 mg - 0.5 mg) 3 ml Nebulizer once Route: Nebulizer; vc1 04:21 Follow up: Response: No adverse reaction km8 03:20 Drug: MethylPrednisoLONE IVP 125 mg IVP once Route: IVP; Site: right forearm; vc1 04:21 Follow up: Response: No adverse reaction km8 03:20 Drug: AZITHromycin IVPB 500 mg IVPB once over 1 hrs; (mix in 250 mL NS) Route: IVPB; vc1 Infused Over: 1 hrs; Site: right forearm; 04:21 Follow up: IV Status: Completed infusion; IV Intake: 250ml km8 05:17 Drug: Nicotine Transdermal Patch 21 mg/24 hr 1 patches Transdermal once {Note: left vc1 shoulder.} Route: Transdermal; Site: affected area; Medication: 03:04 VIS not applicable for this client. vc1 Intake: 04:21 IV: 250ml; Total: 250ml. km8 Outcome: 04:49 Decision to Hospitalize by Provider. ec2 06:46 Admitted to ER Hold. Please see [facility] for further documentation. vc1 06:46 Condition: good 06:46 Instructed on the need for admit, 12:28 Patient left the ED. eb Signatures: Dispatcher [employer] Krissy Park Alice 3 Mikayla Nunez RN RN vc1 Ramesh Hadry MD MD 2 Keyla Acevedo RN RN 8
[2023-08-19] MEDS ORDERED: ACETAMINOPHEN 325 MG TABLET PO PRN (04:54)
[2023-08-19] MEDS ORDERED: ONDANSETRON 4 MG/2 ML VIAL IV PRN (04:54)
[2023-08-19] MEDS ORDERED: ALBUTEROL 2.5 MG/3 ML NEB SOL NEB PRN (04:54)
--- NOTE | 2023-08-19 05:02 | P.HP ---
Certification for Inpatient Patient admitted to: Observation With expected LOS: <2 Midnights Practitioner: I am a practitioner with admitting privileges, knowledge of patient current condition, hospital course, and medical plan of care. Services: Services provided to patient in accordance with Admission requirements found in Title 42 Section 412.3 of the Code of Federal Regulations Patient History Date of Service: 08/19/23 Reason for admission: COPD exacerbation. History of Present Illness: 63-year-old male patient with medical history significant for COPD, paroxysmal atrial fibrillation, hypertension, lipidemia, status post defibrillator placement was evaluated in the emergency room for episode of COPD exacerbation no complaint of shortness of breath associated sputum production. No fever no chills no rigors no nausea no vomiting. Imaging studies done in ED was overtly concerning for opacification in the lung field however there is significant hyperinflation. He was given breathing treatment and steroid and was admitted for observation. Allergies No Known Allergies Allergy (Verified 04/12/23 21:50) Home Medications: Benazepril HCl [Lotensin*] 10 mg PO DAILY #30 tab 03/14/18 Albuterol Neb [Proventil 0.083% Neb Soln] 1 inh Q4H PRN 03/20/23 Atorvastatin Calcium [Lipitor] 40 mg PO BEDTIME 03/20/23 Rivaroxaban [Xarelto*] 1 tab PO DAILY 03/20/23 Albuterol Neb [Proventil 0.083% Neb Soln] 2.5 mg NEB [id number] #60 amp 04/16/23 Ipratropium Neb [Atrovent*] 0.5 mg NEB [id number] #60 amp 04/16/23 Carvedilol [Coreg] 25 mg PO BID 05/29/23 Fluticasone [Flonase 50MCG Nasal [place]*] 1 spr CORNELIUS DAILY 05/29/23 Fluticasone/Umeclidin/Vilanter [Trelegy Ellipta 100-62.5-25] 1 each IH DAILY 30 Days #30 aero 06/03/23 acetaZOLAMIDE [Diamox*] 250 mg PO DAILY 30 Days #30 tab 06/03/23 Roflumilast [Daliresp*] 500 mcg PO DAILY 30 Days #30 tab 07/04/23 Amiodarone HCl [Cordarone*] 200 mg PO BID #60 tab 07/07/23 Calcium Carbonate [Tums Regular*] 500 mg PO QID PRN #120 tab 07/07/23 predniSONE [Prednisone*] 20 mg PO BID #11 tab 07/07/23 - Past Medical/Surgical History Diabetic: No -: COPD -: Paroxysmal Afib -: HTN -: Tobacco abuse -: CVA -: skull fx -: defibrilator -: Home O2 -: Hx Hyponatremia (Dr. Hargrove/ Dr. Menjivar) -: Appendectomy Psychosocial/ Personal History: Patient lives with a girlfriend at home - Family History Father -: Diabetes Mother -: Diabetes - Social History Alcohol use: No CD- Drugs: No Caffeine use: Yes Review of Systems General: Unremarkable Eyes: Unremarkable ENT: Unremarkable Respiratory: Cough, Shortness of Breath Cardiovascular: Unremarkable Gastrointestinal: Unremarkable Genitourinary: Unremarkable Musculoskeletal: Unremarkable Neurological: Unremarkable Lymphatics: Unremarkable Physical Examination - Physical Exam General: Alert, Oriented x3 HEENT: Atraumatic Neck: Supple Respiratory: Diminished Cardiovascular: Regular rate/rhythm, Normal S1 S2 Gastrointestinal: Soft and benign Musculoskeletal: No swelling Neurological: Normal speech - Studies Laboratory Data (last 24 hrs) 08/19/23 08/19/23 03:13 03:13 WBC 8.00 Hgb 12.0 L Hct 36.1 L Plt Count 160 Sodium 141 Potassium 3.8 BUN 23 H Creatinine 0.95 Glucose 157 H Total Bilirubin 0.4 AST < 3 L ALT 11 L Alkaline Phosphatase 52 Microbiology Data (last 24 hrs): 08/19/23 03:37 Nasopharnyx Influenza Type A Antigen Screen - Final 08/19/23 03:37 Nasopharnyx Influenza Type B Antigen Screen - Final Assessment and Plan - Plan COPD exacerbation: Patient has a history of COPD and has suspected CO2 retention. Will obtain ABG. Will continue steroid therapy, and inhalational therapy. Will resume home medications. He is on Roflumilast. Will have pulmonary physician evaluate for medication adjustment. Chronic atrial fibrillation: Continue anticoagulation with Xarelto and rate control medications Hypertension: We will monitor vital signs per unit protocol and continue antihypertensive medications. Hyperlipidemia: Continue statin therapy. Prophylaxis: Patient is on Xarelto for A-fib anticoagulation and should suffice for DVT prophylaxis. CODE STATUS: Full code Disposition: We will treat COPD exacerbation and discharge when he is deemed clinically stable. - Advance Directives Does patient have a Living Will: No Does patient have a Durable POA for Healthcare: No
[2023-08-19] MEDS ORDERED: NICOTINE 21 MG/PAT TD ONE (05:24)
[2023-08-19] MEDS: METHYLPREDNISOLONE 40 MG INJ IV SCH ×2 (06:00→17:26)
[2023-08-19 06:58] VITALS: BMI 21.5
[2023-08-19] MEDS: IPRATROPIUM BROM 0.5MG/2.5ML NEB SCH ×3 (07:40→19:31)
[2023-08-19] MEDS: ROFLUMILAST 500 MCG TABLET PO SCH (09:00)
[2023-08-19] MEDS: ENOXAPARIN 40 MG/0.4 ML SQ SCH (09:00)
--- NOTE | 2023-08-19 12:29 | P.CNS ---
Date of Consult: 08/19/23 Reason for Consult: COPD exacerbation Chief Complaint: COPD exacerbation. History of Present Illness: It is 63 years of age recurrent hospital admissions he has a history of severe COPD admitted with worsening dyspnea seems to be progressive has a defibrillator placed compliant with his inhalers denies any fever chills still an active smoker Apparently he is compliant with his inhalers does not recall the names Allergies No Known Allergies Allergy (Verified 04/12/23 21:50) Home Medications: Benazepril HCl [Lotensin*] 10 mg PO DAILY #30 tab 03/14/18 Albuterol Neb [Proventil 0.083% Neb Soln] 1 inh Q4H PRN 03/20/23 Atorvastatin Calcium [Lipitor] 40 mg PO BEDTIME 03/20/23 Rivaroxaban [Xarelto*] 1 tab PO DAILY 03/20/23 Albuterol Neb [Proventil 0.083% Neb Soln] 2.5 mg NEB [id number] #60 amp 04/16/23 Ipratropium Neb [Atrovent*] 0.5 mg NEB [id number] #60 amp 04/16/23 Carvedilol [Coreg] 25 mg PO BID 05/29/23 Fluticasone [Flonase 50MCG Nasal [place]*] 1 spr CORNELIUS DAILY 05/29/23 Fluticasone/Umeclidin/Vilanter [Trelegy Ellipta 100-62.5-25] 1 each IH DAILY 30 Days #30 aero 06/03/23 acetaZOLAMIDE [Diamox*] 250 mg PO DAILY 30 Days #30 tab 06/03/23 Roflumilast [Daliresp*] 500 mcg PO DAILY 30 Days #30 tab 07/04/23 Amiodarone HCl [Cordarone*] 200 mg PO BID #60 tab 07/07/23 Calcium Carbonate [Tums Regular*] 500 mg PO QID PRN #120 tab 07/07/23 predniSONE [Prednisone*] 20 mg PO BID #11 tab 07/07/23 - Past Medical/Surgical History Diabetic: No -: COPD -: Paroxysmal Afib -: HTN -: Tobacco abuse -: CVA -: skull fx -: defibrilator -: Home O2 -: Hx Hyponatremia (Dr. Hargrove/ Dr. Menjivar) -: Appendectomy Psychosocial/ Personal History: Patient lives with a girlfriend at home - Family History Father Medical History: Diabetes Mother Medical History: Diabetes - Social History Smoking Status: Current every day smoker Alcohol use: No CD- Drugs: No Caffeine use: Yes Place of Residence: Home Review of Systems 10-point ROS is otherwise unremarkable General: Weakness Respiratory: Cough, Shortness of Breath Physical Examination Temp Pulse Resp BP Pulse Ox 97.5 F 75 24 H 135/74 95 08/19/23 12:00 08/19/23 12:00 08/19/23 12:00 08/19/23 12:00 08/19/23 12:00 General: Alert, Oriented x3 Respiratory: Diminished, Expiratory wheezes Cardiovascular: No edema, Regular rate/rhythm, Normal S1 S2 Gastrointestinal: Normal bowel sounds, Soft and benign Laboratory Data (last 24 hrs) 08/19/23 08/19/23 03:13 03:13 WBC 8.00 Hgb 12.0 L Hct 36.1 L Plt Count 160 Sodium 141 Potassium 3.8 BUN 23 H Creatinine 0.95 Glucose 157 H Total Bilirubin 0.4 AST < 3 L ALT 11 L Alkaline Phosphatase 52 - Problems (1) COPD exacerbation Current Visit: No Status: Acute Plan: Patient is 63 years of age admitted with COPD exacerbation recurrent hospitalizations he is at progressive dyspnea Labs reviewed unremarkable chest x-ray shows severe COPD patient is an active smoker plan to resume some of his home medications including Daliresp continue with steroids bronchodilators gnosis poor vital signs oxygenation satisfactory
[2023-08-19] MEDS: acetaZOLAMIDE 250 MG TAB PO SCH (13:00)
--- NOTE | 2023-08-19 14:46 | EKG ---
Test Date: 2023-08-19 Test Time: 03:48:35 Legal Librarian: IVAN MEASUREMENT RESULTS: Intervals: Rate: 73 AZ: 148 QRSD: 104 QT: 430 QTc: 473 Una: P: 83 AZ: 148 QRS: 82 T: 84 INTERPRETIVE STATEMENTS: Normal sinus rhythm ST elevation, consider early repolarization, pericarditis, or injury Abnormal ECG Compared to ECG 07/06/2023 17:15:38 No significant changes Electronically Signed On 08-19-23 14:45:00 [employer]S SALVAGER by Ric Pandya
[2023-08-19] MEDS: RIVAROXABAN 15 MG TABLET PO SCH (17:26)
[2023-08-19] MEDS: AMIODARONE HCL 200 MG TAB PO SCH (20:25)
[2023-08-19] MEDS: NICOTINE 21 MG/PAT TD SCH (20:25)
--- NOTE | 2023-08-19 21:33 | RAD REPORT ---
EXAM DESCRIPTION: RAD - Chest Single View - 08/19/2023 2:56 am CLINICAL HISTORY: SOB COMPARISON: Chest x-ray 06/09/2023 TECHNIQUE: 2 AP views of the chest. FINDINGS: Left-sided cardiac conduction device noted. Lungs hyperexpanded. Cardiac silhouette is normal in size. No pneumothorax. No large pleural effusion. No focal consolidation. No acute bony finding. IMPRESSION: No acute cardiopulmonary findings. Electronically signed by: Dariela Jennings MD 08/19/2023 03:05 AM BRASS CHASER Due to temporary technical issues with the PACS/Fluency reporting system, reports are being signed by the in house radiologists without review as a courtesy to insure prompt reporting. The interpreting radiologist is fully responsible for the content of the report.
[2023-08-20] MEDS: IPRATROPIUM BROM 0.5MG/2.5ML NEB SCH ×4 (01:00→19:52)
[2023-08-20] MEDS: METHYLPREDNISOLONE 40 MG INJ IV SCH (06:03)
[2023-08-20] MEDS: Fluticasone/Umeclidin/Vilanter [Trelegy Ellipta 100-62.5-25] Blst.W.Dev IH SCH (09:00)
[2023-08-20] MEDS ORDERED: acetaZOLAMIDE 250 MG TAB PO SCH (09:00)
[2023-08-20] MEDS: acetaZOLAMIDE 250 MG TAB PO SCH (09:15)
[2023-08-20] MEDS: ROFLUMILAST 500 MCG TABLET PO SCH (09:15)
[2023-08-20] MEDS: AMIODARONE HCL 200 MG TAB PO SCH ×2 (09:15→20:59)
[2023-08-20] MEDS: ENOXAPARIN 40 MG/0.4 ML SQ SCH (09:16)
--- NOTE | 2023-08-20 11:26 | P.PN ---
Subjective Date of Service: 08/20/23 Chief Complaint: COPD exacerbation. Subjective: Improving (Patient is improving complaining of nausea) Review of Systems General: Weakness Respiratory: Shortness of Breath Physical Examination - Vital Signs Temperature: 97.5 F Blood Pressure: 123/63 Pulse: 58 Respirations: 18 Pulse Ox (%): 97 - Physical Exam General: Alert, Oriented x3, Mild distress Respiratory: Clear to auscultation bilaterally, Diminished Cardiovascular: No edema, Regular rate/rhythm Assessment And Plan - Current Problems (Diagnosis) (1) COPD exacerbation Current Visit: No Status: Acute Plan: Is 63 years of age admitted with COPD exacerbation does not recall his inhalers that he uses ending of nausea I suspect this is a side effect of the Daliresp will reduce dose to 250 mg daily change to p.o. prednisone signs oxygenation s table discharge planning
[2023-08-20] MEDS ORDERED: ALBUTEROL 2.5 MG/3 ML NEB SOL NEB PRN (17:00)
[2023-08-20] MEDS: RIVAROXABAN 15 MG TABLET PO SCH (17:03)
[2023-08-20] MEDS: NICOTINE 21 MG/PAT TD SCH (20:00)
[2023-08-20] MEDS: predniSONE 20 MG TAB PO SCH (20:59)
[2023-08-21] MEDS: IPRATROPIUM BROM 0.5MG/2.5ML NEB SCH ×2 (07:25→12:39)
[2023-08-21 08:43] VITALS: O2SAT 97
[2023-08-21] MEDS: Fluticasone/Umeclidin/Vilanter [Trelegy Ellipta 100-62.5-25] Blst.W.Dev IH SCH (09:00)
[2023-08-21] MEDS ORDERED: ROFLUMILAST 500 MCG TABLET PO SCH (09:00)
[2023-08-21] MEDS: predniSONE 20 MG TAB PO SCH (09:23)
[2023-08-21] MEDS: AMIODARONE HCL 200 MG TAB PO SCH (09:23)
[2023-08-21] MEDS: acetaZOLAMIDE 250 MG TAB PO SCH (09:23)
--- NOTE | 2023-08-21 12:07 | P.PN ---
Date of Service: 08/20/23 Subjective Patient denies any new complaints. Clinically doing much better. Physical Examination -Vitals Reviewed -Physical Exam General: Alert, Oriented x3 HEENT: Atraumatic Neck: Supple Respiratory: Diminished; end expiratory wheezing Cardiovascular: Regular rate/rhythm, Normal S1 S2 Gastrointestinal: Soft and benign Musculoskeletal: No swelling Neurological: No focal deficits Assessment and Plan -Assessment 1. COPD exacerbation; acute 2. Atrial fibrillation, rate controlled 3. History of hypertension 4. History of dyslipidemia 5. History of noncompliance Plan COPD exacerbation: Patient has a history of COPD and has suspected CO2 retention. Will obtain ABG. Will continue steroid therapy, and inhalational therapy. Will resume home medications. He is on Roflumilast. Will have pulmonary physician evaluate for medication adjustment. Chronic atrial fibrillation: Continue anticoagulation with Xarelto and rate control medications Hypertension: We will monitor vital signs per unit protocol and continue antihypertensive medications. Hyperlipidemia: Continue statin therapy. Prophylaxis: Patient is on Xarelto for A-fib anticoagulation and should suffice for DVT prophylaxis. CODE STATUS: Full code Disposition: We will treat COPD exacerbation and discharge when he is deemed clinically stable. - Advance Directives Does patient have a Living Will: No Does patient have a Durable POA for Healthcare: No
--- NOTE | 2023-08-21 12:09 | P.DS ---
Discharge Date: 08/21/23 Disposition: ROUTINE DISCHARGE Discharge Condition: GOOD Reason for Admission: COPD exacerbation. Consultations: Pulmonary Brief History of Present Illness: Patient is a 63-year-old male patient with medical history significant for COPD, paroxysmal atrial fibrillation, hypertension, lipidemia, status post defibrillator placement was evaluated in the emergency room for episode of COPD exacerbation no complaint of shortness of breath associated sputum production. No fever no chills no rigors no nausea no vomiting. Imaging studies done in ED was overtly concerning for opacification in the lung field however there is significant hyperinflation. Patient has been given nebs, steroids, and antibiotics. Patient is clinically doing a little bit better but still getting very short of breath. Patient baseline is able to fully ambulate without difficulty. Currently he is not able to ambulate without severe difficulty breathing. Hospital Course: Patient has done well during hospitalization. Clinically he is feeling better. He was walking with a wheelchair and his respiratory status has improved. Patient is stable for discharge. He needs to follow-up with pulmonary as an outpatient. Patient also may need referral to the Medical Center for further pulmonary follow-up. At this time, patient stable for discharge. Vital Signs/Physical Exam: Temp Pulse Resp BP Pulse Ox 97.2 F 57 18 139/64 96 08/21/23 08:00 08/21/23 08:00 08/21/23 08:00 08/21/23 08:00 08/21/23 08:00 General: Alert, In no apparent distress, Oriented x3 Laboratory Data at Discharge: WBC 8.00 thou/uL (4.3-10.9) 08/19/23 03:13 Hgb 12.0 g/dL (13.6-17.9) L 08/19/23 03:13 Hct 36.1 % (39.6-49.0) L 08/19/23 03:13 Plt Count 160 thou/uL (152-406) 08/19/23 03:13 Sodium 141 mEq/L (136-145) 08/19/23 03:13 Potassium 3.8 mEq/L (3.5-5.1) 08/19/23 03:13 BUN 23 mg/dL (7-18) H 08/19/23 03:13 Creatinine 0.95 mg/dL (0.70-1.30) 08/19/23 03:13 Glucose 157 mg/dL (74-106) H 08/19/23 03:13 Total Bilirubin 0.4 mg/dL (0.2-1.0) 08/19/23 03:13 AST < 3 U/L (15-37) L 08/19/23 03:13 ALT 11 U/L (16-61) L 08/19/23 03:13 Alkaline Phosphatase 52 U/L (45-117) 08/19/23 03:13 Home Medications: Benazepril HCl [Lotensin*] 10 mg PO DAILY #30 tab 03/14/18 Atorvastatin Calcium [Lipitor] 40 mg PO BEDTIME 03/20/23 Rivaroxaban [Xarelto*] 1 tab PO DAILY 03/20/23 Carvedilol [Coreg] 25 mg PO BID 05/29/23 Fluticasone [Flonase 50MCG Nasal [place]*] 1 spr CORNELIUS DAILY 05/29/23 Fluticasone/Umeclidin/Vilanter [Trelegy Ellipta 100-62.5-25] 1 each IH DAILY 30 Days #30 aero 06/03/23 acetaZOLAMIDE [Diamox*] 250 mg PO DAILY 30 Days #30 tab 06/03/23 Roflumilast [Daliresp*] 500 mcg PO DAILY 30 Days #30 tab 07/04/23 Amiodarone HCl [Cordarone*] 200 mg PO BID #60 tab 07/07/23 Calcium Carbonate [Tums Regular*] 500 mg PO QID PRN #120 tab 07/07/23 predniSONE [Prednisone*] 20 mg PO BID #11 tab 07/07/23 Albuterol Inhaler [Ventolin Inhaler*] 2 puff IH Q6H PRN #1 inh 08/21/23 Albuterol Neb [Proventil 0.083% Neb Soln] 2.5 mg NEB [id number] #60 amp 08/21/23 Cefdinir [Cefdinir*] 300 mg PO BID #14 cap 08/21/23 Ipratropium Neb [Atrovent*] 0.5 mg NEB [id number] #60 amp 08/21/23 predniSONE [Prednisone*] 20 mg PO BID #20 tab 08/21/23 New Medications: Ipratropium Neb [Atrovent*] 0.5 mg NEB [id number] #60 amp Cefdinir [Cefdinir*] 300 mg PO BID #14 cap predniSONE [Prednisone*] 20 mg PO BID #20 tab Albuterol Neb [Proventil 0.083% Neb Soln] 2.5 mg NEB [id number] #60 amp Albuterol Inhaler [Ventolin Inhaler*] 2 puff IH Q6H PRN #1 inh PRN Reason: Shortness Of Breath Physician Discharge Instructions: -DC IV and DC home -Follow-up with PCP in 1 to 2 weeks -Follow-up with Pulmonary in 1 to 2 weeks -Please call Dr. Parish at [phone] if any questions regarding hospital stay -Please call nursing station at [phone] if any nursing or medication questions -Return to the emergency room if symptoms worsen Diet: Low sodium Activity: Fall precautions Followup: James BHARDWAJ,Luís Jasso DO [Primary Care Provider] - Time spent managing pt's care (in minutes): 35
[2023-08-21 13:00] VITALS: BP 126/62; TEMP 98
== END 2023-08-21 14:27 | disposition home or self-care (01) ==
LOC: ER 02:41 → ERHOLD 05:53 → 4TH 12:20
PROVIDERS: ADMIT Internal Medicine Nephrology; ATTEND Hospitalist
DX: J44.1 Chronic obstructive pulmonary disease with (acute) exacerbation (principal); I10 Essential (primary) hypertension; E78.5 Hyperlipidemia, unspecified; I48.11 Longstanding persistent atrial fibrillation; Z79.01 Long term (current) use of anticoagulants; F17.210 Nicotine dependence, cigarettes, uncomplicated; Z91.148 Patient's other noncompliance with medication regimen for other reason; Z11.52 Encounter for screening for COVID-19
CPT/HCPCS: 96365; 93005; 85025; 36415; 84484; 80053; 87635; 87804 ×2; 71045; 94640 ×2; 96375; 99285; J7512 ×2; J7613 ×2; J7644 ×10; J1650; J2930; J2405; G0378 ×6; J7050; J2920 ×2

== ENCOUNTER 2023-08-27 17:37 | Emergency (ER) | payer OTHER ==
--- OUTSIDE RECORDS SUMMARY | 2023-08-27 17:53 | XMS REPORT | Continuity of Care Document ---
Author Name Unknown Address [address] [facility] [address] [place] [address] [facility] thconnect Address [address] 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 Name Role Phone MILY MAY Primary Care Physician Unavailable HERMINIA OH Attending Clinician Unavailable NOMI MARY Attending Clinician Unavailable NOMI MARY Attending Clinician Unavailable Nomi Mary DO Attending Clinician Doctor Unassigned, [place] Attending Clinician U elaina Monge RN, Marika Friedman Attending Clinician [phone] ATANASOV, STRAHIL T Attending Clinician Unavaila ble JANENE, STRAHIL T Attending Clinician Unavaila ble DameonRudy Attending Clinician Unavailable CARL ORLANDO Attending Clinician Unavailable CARL ORLANDO Attending Clinician Unavailable MILY MAY Attending Clinician April Mily Ruiz MD Attending Clinician Taylor Frye RN Attending Clinician Unavailab TRAVSI Katz Attending Clinician Unavailable Iza Portillo Attending Clinician [phone] Francisca Bryant DO Attending Clinician [phone] Travis Zeng MD Attending Clinician [phone] PRADIP AUSTIN Attending Clinician Unavaila Pradip Du Attending Clinician +[phone] HERMINIA CHO Attending Clinician Unavailable Herminia Cho MD Attending Clinician [phone] FRANCISCA BRYANT Attending Clinician Unavailab LOUIS Ham Attending Clinician Unavailable Louis Hong DO Attending Clinician [phone] Bessie Oswald MD Attending Clinician [phone] RACHAEL FLOWERS Attending Clinician Unavailable Rachael Flowers MD Attending Clinician [phone] LEOBARDO SLOAN Attending Clinician Unavailable Leobardo Sloan MD Attending Clinician [phone] BESSIE OSWALD Attending Clinician Unavailable STEPHANIE ALMONTE Attending Clinician Unavail able Stephanie Almonte MD Attending Clinician [phone] IZA VARMA Attending Clinician Unavailable Kathia Paula MD Attending Clinician [phone] Agapito Hackett MD Attending Clinician [phone] María Diaz DO Attending Clinician [phone] MARISOL DEVLIN Attending Clinician Unavailable Marisol Devlin MD Attending Clinician [phone] Dedrick Toth MD Attending Clinician [phone] Cecy Caro LVN Attending Clinician [phone] Shanthi FRANCIS, Carlo Attending Clinician + [phone] Beny SAWYER, Abi Attending Clinician [phone] Clive Contreras MD Attending Clinician [phone] ERNESTO PIPER Attending Clinician Unavailable ERNESTO PIPER Attending Clinician Unavailable Krissy Powers MD Attending Clinician [phone] LEILA CHAPA Attending Clinician Unavailable Leila Chapa MD Attending Clinician [phone] Gramm VENEER STOCK GRADERJeanette Attending Clinician [phone] [facility] Lab Main Attending Clinician UnavailGokul Lewis MD Attending Clinician [phone] GOKUL TURNER Attending Clinician Unavailable , [facility] Surg Spec Procedure Attending Clinician Unavailable VIOLETA JEANETTE A Attending Clinician Unavailable Chris ZAMORA, Herminia S Attending Clinician UnavailTyrell Giraldo Attending Clinician UnavailRamesh Davis Attending Clinician [phone] Rudy Xiao Admitting Clinician Unavailable TRAVIS ZENG Admitting Clinician Unavailable Travis Zeng MD Admitting Clinician [phone] STEPHANIE ALMONTE Admitting Clinician Unavail able LOUIS HONG Admitting Clinician Unavailable María Diaz DO Admitting Clinician [phone] MARISOL DEVLIN Admitting Clinician Unavailable IZA VARMA Admitting Clinician Unavailable Clive Contreras MD Admitting Clinician [phone] KRISSY POWERS Admitting Clinician Unavailable Krissy Powers MD Admitting Clinician [phone] MARÍA DIAZ Admitting Clinician Unavailable HERMINIA CHO Admitting Clinician Unavailable SAUD SANDERS Admitting Clinician Unavailable Payers Payer Name Policy Type Policy Number Effective Date Expirati on Date Source [employer] MEDICARE GOLD [id number] 2018 00:00:00 [employer] CHOICE [id number] 2022 00:00:00 Problems Condition Name Condition Details Condition Category Status Onset Date Resolution Date Last Treatment Date Treating Clinician Comments Source Mitral regurgitat ion Mitral regurgitat ion Disease Active 2023-0 5-31 00:00: 00 [facility] Hypotensio n, unspecifie d hypotensio n type Hypotensio n, unspecifie d hypotensio n type Disease Active 5-30 00:00: 00 [facility] 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 Disease Active 5-03 00:00: 00 [facility] Confusion Confusion Disease Active 3-24 00:00: 00 [facility] Shortness of breath Shortness of breath Disease Active 3-11 00:00: 00 [facility] SOB (shortness of breath) SOB (shortness of breath) Disease Active 2- 00:00: 00 [facility] 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 heart failure Disease Active 2018-09 00:00: 00 [facility] PAF (paroxysma l atrial fibrillati on) PAF (paroxysma l atrial fibrillati on) Disease Active 2018-09 00:00: 00 [facility] NSVT (nonsustai charlette ventricula r tachycardi a) NSVT (nonsustai charlette ventricula r tachycardi a) Disease Active 2018-09 00:00: 00 [facility] Acute on chronic combined systolic and diastolic congestive heart failure Acute on chronic combined systolic and diastolic congestive heart failure Disease Active 2018-09 00:00: 00 [facility] Nonrheumat ic mitral valve stenosis Nonrheumat ic mitral valve stenosis Disease Active 2018-09 00:00: 00 [facility] COPD exacerbati on COPD exacerbati on Disease Active 2018-09 00:00: 00 [facility] Cigarette smoker Cigarette smoker Disease Active 2018-09 00:00: 00 [facility] Troponin I above reference range Troponin I above reference range Disease Active 2018-09 00:00: 00 [facility] Hyponatrem ia Hyponatrem ia Disease Active 2018-09 00:00: 00 [facility] Hypoxia Hypoxia Disease Active 2018-09 00:00: 00 [facility] Acute respirator y distress Acute respirator y distress Disease Active 2018-09 00:00: 00 [facility] Left heart failure Left heart failure Disease Active 2013-09 00:00: 00 [facility] Closed fracture of zygoma Closed fracture of zygoma Disease Active 2013-09 00:00: 00 Overview: Formattin g of this note might be different from the original. Chronic Fracture - not acute [facility] Fall Fall Disease Active 2013-09 00:00: 00 [facility] Atrial fibrillati on Atrial fibrillati on Disease Active 2013-09 00:00: 00 [facility] VT (ventricul ar tachycardi a) VT (ventricul ar tachycardi a) Disease Active 2013-09 00:00: 00 [facility] Allergies, Adverse Reactions, Alerts Allergy Name Allergy Type Status Severity Reaction(s) Onset Date Inactive Date Treating Clinician Comments Source No Known Allergie s DA Active U 2019-09 0 00:00: 00 [facility] No Known Allergie s DA Active U 2019-09 0 00:00: 00 [facility] NO KNOWN ALLERGIE S Drug Class Active [facility] Social History Social Habit Start Date Stop Date Quantity Comments Source [facility] History of tobacco use Passive smoker [facility] History SDOH Social Connections Get Together [facility] History SDOH Social Connections [facility] History SDOH Social Connections Membership [facility] History SDOH Social Connections Meetings [facility] History of Social function 2023-03-01 00:00:00 2023-03-01 00:00:00 [facility] Alcohol intake 2023-03-01 00:00:00 2023-03-01 00:00:00 Current drinker of alcohol (finding) [facility] History SDOH Housing Unable to Pay 2023-02-18 00:00:00 2023-02-18 00:00:00 2 [facility] History SDOH Housing Places Lived 2023-02-18 00:00:00 2023-02-18 00:00:00 1 [facility] History SDOH Housing Homeless Last Year 2023-02-18 00:00:00 2023-02-18 00:00:00 2 [facility] History SDOH Alcohol Frequency 2023-02-18 00:00:00 2023-02-18 00:00:00 1 [facility] History SDOH Social Connections Phone 2023-02-18 00:00:00 2023-02-18 00:00:00 5 [facility] History SDOH Social Connections Living 2023-02-18 00:00:00 2023-02-18 00:00:00 7 [facility] History SDOH Physical Activity DPW 2023-02-18 00:00:00 2023-02-18 00:00:00 0 [facility] History SDOH Physical Activity MPS 2023-02-18 00:00:00 2023-02-18 00:00:00 0 [facility] History SDOH Financial 2023-02-18 00:00:00 2023-02-18 00:00:00 5 [facility] History SDOH Food Worry 2023-02-18 00:00:00 2023-02-18 00:00:00 1 [facility] History SDOH Food Scarcity 2023-02-18 00:00:00 2023-02-18 00:00:00 1 [facility] History SDOH Transport Med 2023-02-18 00:00:00 2023-02-18 00:00:00 2 [facility] History SDOH Transport Non-Med 2023-02-18 00:00:00 2023-02-18 00:00:00 2 [facility] Exposure to SARS-CoV-2 (event) 2023-02-05 00:00:00 2023-02-15 15:15:00 Not sure [facility] History SDOH Alcohol Std Drinks 2022-12-02 00:00:00 2022-12-02 00:00:00 3 [facility] History SDOH Alcohol Binge 2022-12-02 00:00:00 2022-12-02 00:00:00 1 [facility] Cigarettes smoked current (pack per day) - Reported 2022-11-09 00:00:00 2022-11-09 00:00:00 [facility] Tobacco use and exposure 2022-11-09 00:00:00 2022-11-09 00:00:00 User of smokeless tobacco [facility] Education - What is the highest level of school you have completed or the highest degree you have received? 2022-11-09 00:00:00 2022-11-09 00:00:00 High school graduate [facility] Alcohol Comment 2014-08-27 00:00:00 2014-08-27 00:00:00 8 drinks per day [facility] Sex Ass[birth year] At 1960 00:00:00 1960 00:00:00 [facility] Smoking Status Start Date Stop Date Source Smokes tobacco daily 2022-11-09 00:00:00 [facility] Medications Ordered Medication Name Filled Medication Name Start Date Stop Date Current Medication? Ordering Clinician Indication Dosage Frequency Signature (SIG) Comments Components Source umeclilm m (INCRUSE ELLIPTA) 62.5 mcg/actuati on DsDv 2022-09 0- 00:00: 00 Yes [id number] 1{puff} Inhale 1 Puff in the morning. [facility] tiotropium 18 mcg inhalation 2022-09 0-20 00:00: 00 Yes 18ug Inhale 1 capsule in the morning. [facility] tiotropium 18 mcg inhalation 2022-09 0-20 00:00: 00 Yes 18ug Inhale 1 capsule in the morning. [facility] tiotropium 18 mcg inhalation 2022-09 0-20 00:00: 00 Yes 18ug Inhale 1 capsule in the morning. [facility] fluticasone propion-bella meteroL (ADVAIR DISKUS) 250-50 mcg/dose inhalation disk 8- 00:00: 00 Yes 1{puff} Inhale 1 Puff in the morning and 1 Puff in the evening. [facility] tiotropium 18 mcg inhalation 04-19 00:00: 00 Yes 18ug Inhale 1 capsule in the morning. [facility] al[facility] mcg/actuati on inhaler 04-19 00:00: 00 Yes 2{puff} Inhale 2 Puffs every 4 (four) hours as needed for Wheezing or Shortness of Breath. [facility] ipratropium -albuteroL 0.5 mg-3 mg(2.5 mg base)/3 mL nebulizer solution 04-19 00:00: 00 Yes [id number] 3mL Inhale 3 mL every 6 (six) hours as needed for Wheezing. [facility] fluticasone propion-bella meteroL (ADVAIR DISKUS) 250-50 mcg/dose inhalation disk 04-19 00:00: 00 Yes 1{puff} Inhale 1 Puff in the morning and 1 Puff in the evening. [facility] tiotropium 18 mcg inhalation 04-19 00:00: 00 Yes 18ug Inhale 1 capsule in the morning. [facility] albuterol 90 mcg/actuati on inhaler 04-19 00:00: 00 Yes 2{puff} Inhale 2 Puffs every 4 (four) hours as needed for Wheezing or Shortness of Breath. [facility] ipratropium -albuteroL 0.5 mg-3 mg(2.5 mg base)/3 mL nebulizer solution 04-19 00:00: 00 Yes [id number] 3mL Inhale 3 mL every 6 (six) hours as needed for Wheezing. [facility] fluticasone propion-bella meteroL (ADVAIR DISKUS) 250-50 mcg/dose inhalation disk 04-19 00:00: 00 Yes 1{puff} Inhale 1 Puff in the morning and 1 Puff in the evening. [facility] tiotropium 18 mcg inhalation 04-19 00:00: 00 Yes 18ug Inhale 1 capsule in the morning. [facility] albuterol 90 mcg/actuati on inhaler 04-19 00:00: 00 Yes 2{puff} Inhale 2 Puffs every 4 (four) hours as needed for Wheezing or Shortness of Breath. [facility] ipratropium -albuteroL 0.5 mg-3 mg(2.5 mg base)/3 mL nebulizer solution 04-19 00:00: 00 Yes [id number] 3mL Inhale 3 mL every 6 (six) hours as needed for Wheezing. [facility] fluticasone propion-bella meteroL (ADVAIR DISKUS) 250-50 mcg/dose inhalation disk 04-19 00:00: 00 Yes 1{puff} Inhale 1 Puff in the morning and 1 Puff in the evening. [facility] albuterol 90 mcg/actuati on inhaler 04-19 00:00: 00 Yes 2{puff} Inhale 2 Puffs every 4 (four) hours as needed for Wheezing or Shortness of Breath. [facility] ipratropium -albuteroL 0.5 mg-3 mg(2.5 mg base)/3 mL nebulizer solution 04-19 00:00: 00 Yes [id number] 3mL Inhale 3 mL every 6 (six) hours as needed for Wheezing. [facility] fluticasone propion-bella meteroL (ADVAIR DISKUS) 250-50 mcg/dose inhalation disk 04-19 00:00: 00 Yes 1{puff} Inhale 1 Puff in the morning and 1 Puff in the evening. [facility] albuterol 90 mcg/actuati on inhaler 04-19 00:00: 00 Yes 2{puff} Inhale 2 Puffs every 4 (four) hours as needed for Wheezing or Shortness of Breath. [facility] ipratropium -albuteroL 0.5 mg-3 mg(2.5 mg base)/3 mL nebulizer solution 04-19 00:00: 00 Yes [id number] 3mL Inhale 3 mL every 6 (six) hours as needed for Wheezing. [facility] fluticasone propion-bella meteroL (ADVAIR DISKUS) 250-50 mcg/dose inhalation disk 04-19 00:00: 00 Yes 1{puff} Inhale 1 Puff in the morning and 1 Puff in the evening. [facility] albuterol 90 mcg/actuati on inhaler 04-19 00:00: 00 Yes 2{puff} Inhale 2 Puffs every 4 (four) hours as needed for Wheezing or Shortness of Breath. [facility] ipratropium -albuteroL 0.5 mg-3 mg(2.5 mg base)/3 mL nebulizer solution 04-19 00:00: 00 Yes [id number] 3mL Inhale 3 mL every 6 (six) hours as needed for Wheezing. [facility] tiotropium 18 mcg inhalation 04-19 00:00: 00 07-08 00:00 :00 No 18ug Inhale 1 capsule in the morning. [facility] albuterol 2.5 mg /3 mL (0.083 %) nebulizer solution 03-03 00:00: 00 Yes [id number] 2.5mg Inhale 3 mL every 4 (four) hours. May also nebulize one extra every 6 hours. [facility] albuterol 2.5 mg /3 mL (0.083 %) nebulizer solution 03-03 00:00: 00 Yes [id number] 2.5mg Inhale 3 mL every 4 (four) hours. May also nebulize one extra every 6 hours. [facility] albuterol 2.5 mg /3 mL (0.083 %) nebulizer solution 03-03 00:00: 00 Yes [id number] 2.5mg Inhale 3 mL every 4 (four) hours. May also nebulize one extra every 6 hours. [facility] albuterol 2.5 mg /3 mL (0.083 %) nebulizer solution 03-03 00:00: 00 Yes [id number] 2.5mg Inhale 3 mL every 4 (four) hours. May also nebulize one extra every 6 hours. [facility] albuterol 2.5 mg /3 mL (0.083 %) nebulizer solution 3-0 6-15 00:00: 00 Yes [id number] 2.5mg Inhale 3 mL every 4 (four) hours. May also nebulize one extra every 6 hours. [facility] albuterol 2.5 mg /3 mL (0.083 %) nebulizer solution 2022-0 6-15 00:00: 00 Yes [id number] 2.5mg Inhale 3 mL every 4 (four) hours. May also nebulize one extra every 6 hours. [facility] albuterol 2.5 mg /3 mL (0.083 %) nebulizer solution 2022-0 -15 00:00: 00 Yes [id number] 2.5mg Inhale 3 mL every 4 (four) hours. May also nebulize one extra every 6 hours. [facility] donepeziL 5 mg tablet 3-0 6-13 00:00: 00 Yes [id number] 5mg Take 1 tablet by mouth in the morning. [facility] memantine 5 mg tablet 3-0 6-13 00:00: 00 Yes [id number] 5mg Take 1 tablet by mouth in the morning. [facility] donepeziL 5 mg tablet 3-0 6-13 00:00: 00 Yes [id number] 5mg Take 1 tablet by mouth in the morning. [facility] memantine 5 mg tablet 3-0 6-13 00:00: 00 Yes [id number] 5mg Take 1 tablet by mouth in the morning. [facility] donepeziL 5 mg tablet 3-0 6-13 00:00: 00 Yes [id number] 5mg Take 1 tablet by mouth in the morning. [facility] memantine 5 mg tablet 3-0 6-13 00:00: 00 Yes [id number] 5mg Take 1 tablet by mouth in the morning. [facility] donepeziL 5 mg tablet 3-0 6-13 00:00: 00 Yes [id number] 5mg Take 1 tablet by mouth in the morning. [facility] memantine 5 mg tablet 2023-0 6-13 00:00: 00 Yes [id number] 5mg Take 1 tablet by mouth in the morning. [facility] donepeziL 5 mg tablet 3-0 6-13 00:00: 00 Yes [id number] 5mg Take 1 tablet by mouth in the morning. [facility] memantine 5 mg tablet 3-0 6-13 00:00: 00 Yes [id number] 5mg Take 1 tablet by mouth in the morning. [facility] donepeziL 5 mg tablet 3-0 6-13 00:00: 00 Yes [id number] 5mg Take 1 tablet by mouth in the morning. [facility] memantine 5 mg tablet 3-0 6-13 00:00: 00 Yes [id number] 5mg Take 1 tablet by mouth in the morning. [facility] donepeziL 5 mg tablet 3-0 6-13 00:00: 00 Yes [id number] 5mg Take 1 tablet by mouth in the morning. [facility] memantine 5 mg tablet 3-0 6-13 00:00: 00 Yes [id number] 5mg Take 1 tablet by mouth in the morning. [facility] donepeziL 5 mg tablet 3-0 6-13 00:00: 00 Yes [id number] 5mg Take 1 tablet by mouth in the morning. [facility] memantine 5 mg tablet 3-0 6-13 00:00: 00 Yes [id number] 5mg Take 1 tablet by mouth in the morning. [facility] donepeziL 5 mg tablet 3-0 6-13 00:00: 00 Yes [id number] 5mg Take 1 tablet by mouth in the morning. [facility] memantine 5 mg tablet 3-0 6-13 00:00: 00 Yes [id number] 5mg Take 1 tablet by mouth in the morning. [facility] busPIRone 10 mg tablet 3-0 02-18 16:15: 12 Yes 10mg Take 1 tablet by mouth in the morning and 1 tablet in the evening. [facility] rivaroxaban 15 mg tablet 2022-0 6 16:15: 12 Yes 15mg Take 1 tablet by mouth in the morning. [facility] ASPIRIN ORAL 2022-0 02-18 16:15: 12 Yes 81mg Take 81 mg by mouth in the morning. tablet [facility] busPIRone 10 mg tablet 2022-0 02-18 16:15: 12 Yes 10mg Take 1 tablet by mouth in the morning and 1 tablet in the evening. [facility] rivaroxaban 15 mg tablet 2022-0 02-18 16:15: 12 Yes 15mg Take 1 tablet by mouth in the morning. [facility] ASPIRIN ORAL 2022-0 02-18 16:15: 12 Yes 81mg Take 81 mg by mouth in the morning. tablet [facility] busPIRone 10 mg tablet 2022-0 02-18 16:15: 12 Yes 10mg Take 1 tablet by mouth in the morning and 1 tablet in the evening. [facility] rivaroxaban 15 mg tablet 2022-0 02-18 16:15: 12 Yes 15mg Take 1 tablet by mouth in the morning. [facility] ASPIRIN ORAL 2022-0 02-18 16:15: 12 Yes 81mg Take 81 mg by mouth in the morning. tablet [facility] busPIRone 10 mg tablet 2022-0 02-18 16:15: 12 Yes 10mg Take 1 tablet by mouth in the morning and 1 tablet in the evening. [facility] rivaroxaban 15 mg tablet 2022-0 02-18 16:15: 12 Yes 15mg Take 1 tablet by mouth in the morning. [facility] ASPIRIN ORAL 2022-0 02-18 16:15: 12 Yes 81mg Take 81 mg by mouth in the morning. tablet [facility] busPIRone 10 mg tablet 2022-0 02-18 16:15: 12 Yes 10mg Take 1 tablet by mouth in the morning and 1 tablet in the evening. [facility] rivaroxaban 15 mg tablet 2022-0 02-18 16:15: 12 Yes 15mg Take 1 tablet by mouth in the morning. [facility] ASPIRIN ORAL 2022-0 02-18 16:15: 12 Yes 81mg Take 81 mg by mouth in the morning. tablet [facility] busPIRone 10 mg tablet 0 02-18 16:15: 12 Yes 10mg Take 1 tablet by mouth in the morning and 1 tablet in the evening. [facility] rivaroxaban 15 mg tablet 2022-0 02-18 16:15: 12 Yes 15mg Take 1 tablet by mouth in the morning. [facility] ASPIRIN ORAL 2022-0 02-18 16:15: 12 Yes 81mg Take 81 mg by mouth in the morning. tablet [facility] busPIRone 10 mg tablet 2022-0 02-18 16:15: 12 Yes 10mg Take 1 tablet by mouth in the morning and 1 tablet in the evening. [facility] rivaroxaban 15 mg tablet 0 02-18 16:15: 12 Yes 15mg Take 1 tablet by mouth in the morning. [facility] ASPIRIN ORAL 2022-0 02-18 16:15: 12 Yes 81mg Take 81 mg by mouth in the morning. tablet [facility] busPIRone 10 mg tablet 0 02-18 16:15: 12 Yes 10mg Take 1 tablet by mouth in the morning and 1 tablet in the evening. [facility] rivaroxaban 15 mg tablet 0 02-18 16:15: 12 Yes 15mg Take 1 tablet by mouth in the morning. [facility] ASPIRIN ORAL 2022-0 02-18 16:15: 12 Yes 81mg Take 81 mg by mouth in the morning. tablet [facility] busPIRone 10 mg tablet 0 02-18 16:15: 12 Yes 10mg Take 1 tablet by mouth in the morning and 1 tablet in the evening. [facility] rivaroxaban 15 mg tablet 2022-0 02-18 16:15: 12 Yes 15mg Take 1 tablet by mouth in the morning. [facility] ASPIRIN ORAL 2022-0 02-18 16:15: 12 Yes 81mg Take 81 mg by mouth in the morning. tablet [facility] busPIRone 10 mg tablet 2022-0 02-18 16:15: 12 Yes 10mg Take 1 tablet by mouth in the morning and 1 tablet in the evening. [facility] rivaroxaban 15 mg tablet 0 02-18 16:15: 12 Yes 15mg Take 1 tablet by mouth in the morning. [facility] ASPIRIN ORAL 2022-0 02-18 16:15: 12 Yes 81mg Take 81 mg by mouth in the morning. tablet [facility] busPIRone 10 mg tablet 0 02-18 16:15: 12 Yes 10mg Take 1 tablet by mouth in the morning and 1 tablet in the evening. [facility] rivaroxaban 15 mg tablet 02-18 16:15: 12 Yes 15mg Take 1 tablet by mouth in the morning. [facility] ASPIRIN ORAL 0 02-18 16:15: 12 Yes 81mg Take 81 mg by mouth in the morning. tablet [facility] busPIRone 10 mg tablet 02-18 16:15: 12 Yes 10mg Take 1 tablet by mouth in the morning and 1 tablet in the evening. [facility] rivaroxaban 15 mg tablet 02-18 16:15: 12 Yes 15mg Take 1 tablet by mouth in the morning. [facility] ASPIRIN ORAL 0 02-18 16:15: 12 Yes 81mg Take 81 mg by mouth in the morning. tablet [facility] busPIRone 10 mg tablet 02-18 16:15: 12 Yes 10mg Take 1 tablet by mouth in the morning and 1 tablet in the evening. [facility] rivaroxaban 15 mg tablet 02-18 16:15: 12 Yes 15mg Take 1 tablet by mouth in the morning. [facility] ASPIRIN ORAL 2022-0 02-18 16:15: 12 Yes 81mg Take 81 mg by mouth in the morning. tablet [facility] predniSONE 20 mg tablet 02-18 00:00: 00 02-22 04:59 :00 No [id number] 40mg Take 2 tablets by mouth in the morning for 3 days. [facility] predniSONE 20 mg tablet 0 02-18 00:00: 00 02-22 04:59 :00 No [id number] 40mg Take 2 tablets by mouth in the morning for 3 days. [facility] predniSONE 20 mg tablet 02-18 00:00: 00 02-22 04:59 :00 No [id number] 40mg Take 2 tablets by mouth in the morning for 3 days. [facility] midodrine 5 mg tablet 02-17 00:00: 00 Yes [id number] 5mg Take 1 tablet by mouth every 8 (eight) hours as needed (Hypotensi on SBP <95 or DBP <50). [facility] midodrine 5 mg tablet 02-17 00:00: 00 Yes [id number] 5mg Take 1 tablet by mouth every 8 (eight) hours as needed (Hypotensi on SBP <95 or DBP <50). [facility] midodrine 5 mg tablet 02-17 00:00: 00 Yes [id number] 5mg Take 1 tablet by mouth every 8 (eight) hours as needed (Hypotensi on SBP <95 or DBP <50). [facility] midodrine 5 mg tablet 02-17 00:00: 00 Yes [id number] 5mg Take 1 tablet by mouth every 8 (eight) hours as needed (Hypotensi on SBP <95 or DBP <50). [facility] midodrine 5 mg tablet 02-17 00:00: 00 Yes [id number] 5mg Take 1 tablet by mouth every 8 (eight) hours as needed (Hypotensi on SBP <95 or DBP <50). [facility] midodrine 5 mg tablet 02-17 00:00: 00 Yes [id number] 5mg Take 1 tablet by mouth every 8 (eight) hours as needed (Hypotensi on SBP <95 or DBP <50). [facility] midodrine 5 mg tablet 02-17 00:00: 00 Yes [id number] 5mg Take 1 tablet by mouth every 8 (eight) hours as needed (Hypotensi on SBP <95 or DBP <50). [facility] midodrine 5 mg tablet 02-17 00:00: 00 Yes [id number] 5mg Take 1 tablet by mouth every 8 (eight) hours as needed (Hypotensi on SBP <95 or DBP <50). [facility] midodrine 5 mg tablet 02-17 00:00: 00 Yes [id number] 5mg Take 1 tablet by mouth every 8 (eight) hours as needed (Hypotensi on SBP <95 or DBP <50). [facility] midodrine 5 mg tablet 02-17 00:00: 00 Yes [id number] 5mg Take 1 tablet by mouth every 8 (eight) hours as needed (Hypotensi on SBP <95 or DBP <50). [facility] midodrine 5 mg tablet 02-17 00:00: 00 Yes [id number] 5mg Take 1 tablet by mouth every 8 (eight) hours as needed (Hypotensi on SBP <95 or DBP <50). [facility] midodrine 5 mg tablet 02-17 00:00: 00 Yes [id number] 5mg Take 1 tablet by mouth every 8 (eight) hours as needed (Hypotensi on SBP <95 or DBP <50). [facility] midodrine 5 mg tablet 02-17 00:00: 00 Yes [id number] 5mg Take 1 tablet by mouth every 8 (eight) hours as needed (Hypotensi on SBP <95 or DBP <50). [facility] midodrine (PROAMATINE ) tablet 5 mg 02-16 19:00: 00 Yes 5mg 5 mg, Oral, Q8H, First dose on Tue02/16/23 at 1400, Until Discontinu ed, Routine [facility] rivaroxaban (XARELTO) tablet 15 mg 02-16 14:00: 00 Yes 15mg 15 mg, Oral, DAILY, First dose on Tue02/16/23 at 0900, Until Discontinu ed, Routine [facility] montelukast (SINGULAIR) tablet 10 mg 02-16 14:00: 00 Yes 10mg 10 mg, Oral, DAILY, First dose on Tue02/16/23 at 0900, Until Discontinu ed, Routine [facility] memantine (NAMENDA) tablet 5 mg 02-16 14:00: 00 Yes 5mg 5 mg, Oral, DAILY, First dose on Tue02/16/23 at 0900, Until Discontinu ed, Routine
chemistry faculty member approving Restricted medication : DEDRICK TOTH [facility] donepeziL (ARICEPT) tablet 5 mg 02-16 14:00: 00 Yes 5mg 5 mg, Oral, DAILY, First dose on Tue02/16/23 at 0900, Until Discontinu ed, Routine [facility] aspirin EC tablet 81 mg 02-16 14:00: 00 Yes 81mg 81 mg, Oral, DAILY, First dose on Tue02/16/23 at 0900, Until Discontinu ed [facility] docusate (COLACE) capsule 100 mg 02-16 14:00: 00 Yes 100mg 100 mg, Oral, DAILY, First dose on Tue02/16/23 at 0900, Until Discontinu ed, Routine [facility] predniSONE (DELTASONE) tablet 40 mg 02-16 14:00: 00 02-21 13:59 :00 No 40mg 40 mg, Oral, DAILY, 5 doses, First dose on Tue02/16/23 at 0900, Last dose on Tue02/20/23 at 0900, Routine [facility] sulfur hexafluorid e microsphr (LUMASON) injection 5 mL 02-16 14:00: 00 02-16 14:00 :00 No [id number] 5mL 5 mL, Intravenou s, ONCE, 1 dose, On Tue02/16/23 at 0900, Routine
chemistry faculty member approving Restricted medication : STEFFANIE REYES [facility] budesonide- formoteroL (SYMBICORT) 160-4.5 mcg/actuati on inhaler 2 Puff 02-16 13:00: 00 Yes 2{puff} 2 Puff, Inhalation , BID, First dose on Tue02/16/23 at 0800, Until Discontinu ed [facility] busPIRone (BUSPAR) tablet 10 mg 02-16 13:00: 00 Yes 10mg 10 mg, Oral, BID, First dose on Tue02/16/23 at 0800, Until Discontinu ed, Routine [facility] methylpredn isolone sod succ (SOLU-MEDRO L) injection 60 mg 02-16 05:43: 00 02-16 05:51 :00 No 60mg 60 mg, Intravenou s, ONCE, 1 dose, On Tue02/16/23 at 0045, 2 mL [facility] levoFLOXaci n in D5W (LEVAQUIN) 500 mg/100 mL Piggyback 500 mg 02-16 02:00: 00 02-16 21:57 :07 No 500mg 500 mg, IV Piggyback, at 100 mL/hr Administer over 60 Minutes, Q24H ABX, 3 doses, First dose on Tue02/15/23 at 2100, Last dose on Tue02/17/23 at 2100, MICHAEL
Re ason for Anti-Infec tive: Documented Infection< br>Documen anirudh Infection Site: Respirator y
Durat ion of Therapy: 7 days
Re stricted use approved by: ADC PROVIDER [facility] doxycycline hyclate (Vibramycin ) capsule 100 mg 02-16 01:02: 11 02-16 21:57 :07 No 100mg 100 mg, Oral, Q12H ABX, 10 doses, First dose on Tue02/15/23 at 2014, Last dose on Tue02/20/23 at 0815, MICHAEL
Re ason for Anti-Infec tive: Documented Infection< br>Documen anirudh Infection Site: Respirator y
Durat ion of Therapy: 7 days [facility] NaCl 0.9% (NS) IV infusion 1,000 mL 02-16 01:00: 00 02-16 12:47 :05 No 1000mL at 100 mL/hr, IV Infusion, CONTINUOUS , Starting on Tue02/15/23 at 2000, Until Tue02/16/23 at 0747, Routine [facility] ipratropium -albuteroL (DUONEB) 0.5 mg-3 mg(2.5 mg base)/3 mL nebulizer solution 3 mL 02-16 00:53: 35 Yes 3mL 3 mL, Inhalation , Q6HPRN, Starting on Tue02/15/23 at 1952, Until Discontinu ed, Routine, Wheezing, Shortness of Breath [facility] HYDROcodone -acetaminop hen (NORCO) 10-325 mg tablet 1 tablet 02-16 00:52: 26 Yes 1{tbl} 1 tablet, Oral, Q6HPRN, Starting on Tue02/15/23 at 1951, Until Discontinu ed, Routine, Pain (scale 7-10) [facility] traMADoL (ULTRAM) tablet 50 mg 02-16 00:52: 22 02-18 00:51 :22 No 50mg 50 mg, Oral, Q8HPRN, Starting on Tue02/15/23 at 1951, Until Elizabeth 02/17/23 at 1950, Routine, Pain (scale 4-6) [facility] acetaminoph en (TYLENOL) tablet 650 mg 02-16 00:52: 16 Yes 650mg 650 mg, Oral, Q6HPRN, Starting on Tue02/15/23 at 1951, Until Discontinu ed, Routine, Pain (scale 1-3) [facility] NaCl 0.9% (NS) bolus infusion 1,000 mL 02-15 22:15: 00 02-15 22:51 :00 No 1000mL at 999 mL/hr, 1,000 mL, IV Infusion, ONCE, 1 dose, On Tue02/15/23 at 1715, MICHAEL [facility] NaCl 0.9% (NS) bolus infusion 1,000 mL 02-15 21:30: 00 02-15 22:43 :00 No 1000mL at 999 mL/hr, 1,000 mL, IV Infusion, ONCE, 1 dose, On Tue02/15/23 at 1630, [facility] NaCl 0.9% (NS) bolus infusion 1,000 mL 02-15 20:45: 00 02-15 22:43 :00 No 1000mL at 999 mL/hr, 1,000 mL, IV Infusion, ONCE, 1 dose, On Tu02/15/23 at 1545, [facility] ipratropium -albuteroL (DUONEB) 0.5 mg-3 mg(2.5 mg base)/3 mL nebulizer solution 3 mL 02-05 22:15: 00 02-06 10:14 :00 No 3mL 3 mL, Inhalation , ONCE, 1 dose, On 02/05/23 at 1715, [facility] ipratropium -albuteroL (DUONEB) 0.5 mg-3 mg(2.5 mg base)/3 mL nebulizer solution 3 mL 02-05 21:15: 02-05 20:17 :00 No 3mL 3 mL, Inhalation , ONCE, 1 dose, On 02/05/23 at 1615, [facility] predniSONE (DELTASONE) tablet 40 mg 02-05 20:15: 02-05 20:18 :00 No 40mg 40 mg, Oral, ONCE, 1 dose, On 02/05/23 at 1515, [facility] levalbutero l (XOPENEX) nebulizer solution 2.5 mg 02-04 21:15: 02-04 20:31 :00 No 2.5mg 2.5 mg, Inhalation , ONCE, 1 dose, On Tue02/04/23 at 1615, [facility] ipratropium (ATROVENT) 0.02 % nebulizer solution 0.5 mg 02-04 21:15: 00 02-04 20:31 :00 No .5mg 0.5 mg, Inhalation , ONCE, 1 dose, On Tue02/04/23 at 1615, [facility] albuterol 90 mcg/actuati on inhaler 02-04 00:00: 00 Yes [id number] 2{puff} Inhale 2 Puffs every 4 (four) hours as needed for Wheezing or Shortness of Breath. [facility] albuterol 90 mcg/actuati on inhaler 02-04 00:00: 00 Yes [id number] 2{puff} Inhale 2 Puffs every 4 (four) hours as needed for Wheezing or Shortness of Breath. [facility] albuterol 90 mcg/actuati on inhaler 02-04 00:00: 00 Yes [id number] 2{puff} Inhale 2 Puffs every 4 (four) hours as needed for Wheezing or Shortness of Breath. [facility] albuterol 90 mcg/actuati on inhaler 02-04 00:00: 00 Yes [id number] 2{puff} Inhale 2 Puffs every 4 (four) hours as needed for Wheezing or Shortness of Breath. [facility] albuterol 90 mcg/actuati on inhaler 02-04 00:00: 00 Yes [id number] 2{puff} Inhale 2 Puffs every 4 (four) hours as needed for Wheezing or Shortness of Breath. [facility] albuterol 90 mcg/actuati on inhaler 02-04 00:00: 00 Yes [id number] 2{puff} Inhale 2 Puffs every 4 (four) hours as needed for Wheezing or Shortness of Breath. [facility] albuterol 90 mcg/actuati on inhaler 02-04 00:00: 00 Yes [id number] 2{puff} Inhale 2 Puffs every 4 (four) hours as needed for Wheezing or Shortness of Breath. [facility] albuterol 90 mcg/actuati on inhaler 02-04 00:00: 00 Yes [id number] 2{puff} Inhale 2 Puffs every 4 (four) hours as needed for Wheezing or Shortness of Breath. [facility] albuterol 90 mcg/actuati on inhaler 02-04 00:00: 00 Yes [id number] 2{puff} Inhale 2 Puffs every 4 (four) hours as needed for Wheezing or Shortness of Breath. [facility] albuterol 90 mcg/actuati on inhaler 02-04 00:00: 00 Yes [id number] 2{puff} Inhale 2 Puffs every 4 (four) hours as needed for Wheezing or Shortness of Breath. [facility] albuterol 90 mcg/actuati on inhaler 02-04 00:00: 00 04-19 00:00 :00 No [id number] 2{puff} Inhale 2 Puffs every 4 (four) hours as needed for Wheezing or Shortness of Breath. [facility] albuterol 90 mcg/actuati on inhaler 02-04 00:00: 00 04-19 00:00 :00 No [id number] 2{puff} Inhale 2 Puffs every 4 (four) hours as needed for Wheezing or Shortness of Breath. [facility] ipratropium -albuteroL (DUONEB) 0.5 mg-3 mg(2.5 mg base)/3 mL nebulizer solution 3 mL 02-03 21:00: 00 Yes 3mL 3 mL, Inhalation , QID, First dose on Tue02/03/23 at 1600, Until Discontinu ed, Routine [facility] methylpredn isolone sod succ (SOLU-MEDRO L) injection 125 mg 02-03 18:45: 00 02-03 18:16 :00 No 125mg 125 mg, Intravenou s, ONCE, 1 dose, On Tue02/03/23 at 1345, 2 mL [facility] ipratropium -albuteroL (DUONEB) 0.5 mg-3 mg(2.5 mg base)/3 mL nebulizer solution 3 mL 02-02 23:15: 00 02-02 22:13 :00 No 3mL 3 mL, Inhalation , ONCE, 1 dose, On Tue02/02/23 at 1815, Routine [facility] albuterol 90 mcg/actuati on inhaler 0 15 00:00: 00 Yes [id number] 2{puff} Inhale 2 Puffs every 4 (four) hours as needed for Wheezing, Shortness of Breath or Bronchospa sm. [facility] fluticasone propion-bella meteroL (ADVAIR DISKUS) 250-50 mcg/dose inhalation disk 15 00:00: 00 Yes [id number] 1{puff} Inhale 1 Puff in the morning and 1 Puff in the evening. [facility] montelukast 10 mg tablet 0 15 00:00: 00 Yes [id number] 10mg Take 1 tablet by mouth in the morning. [facility] tiotropium 18 mcg inhalation 0 15 00:00: 00 Yes [id number] 18ug Inhale 1 capsule in the morning. [facility] albuterol 90 mcg/actuati on inhaler 01-31 00:00: 00 Yes [id number] 2{puff} Inhale 2 Puffs every 4 (four) hours as needed for Wheezing, Shortness of Breath or Bronchospa sm. [facility] fluticasone propion-bella meteroL (ADVAIR DISKUS) 250-50 mcg/dose inhalation disk 15 00:00: 00 Yes [id number] 1{puff} Inhale 1 Puff in the morning and 1 Puff in the evening. [facility] montelukast 10 mg tablet 15 00:00: 00 Yes [id number] 10mg Take 1 tablet by mouth in the morning. [facility] tiotropium 18 mcg inhalation 0 15 00:00: 00 Yes [id number] 18ug Inhale 1 capsule in the morning. [facility] albuterol 90 mcg/actuati on inhaler 0 15 00:00: 00 Yes [id number] 2{puff} Inhale 2 Puffs every 4 (four) hours as needed for Wheezing, Shortness of Breath or Bronchospa sm. [facility] fluticasone propion-bella meteroL (ADVAIR DISKUS) 250-50 mcg/dose inhalation disk 15 00:00: 00 Yes [id number] 1{puff} Inhale 1 Puff in the morning and 1 Puff in the evening. [facility] montelukast 10 mg tablet 15 00:00: 00 Yes [id number] 10mg Take 1 tablet by mouth in the morning. [facility] tiotropium 18 mcg inhalation 0 15 00:00: 00 Yes [id number] 18ug Inhale 1 capsule in the morning. [facility] albuterol 90 mcg/actuati on inhaler 01-31 00:00: 00 Yes [id number] 2{puff} Inhale 2 Puffs every 4 (four) hours as needed for Wheezing, Shortness of Breath or Bronchospa sm. [facility] fluticasone propion-bella meteroL (ADVAIR DISKUS) 250-50 mcg/dose inhalation disk 01-31 00:00: 00 Yes [id number] 1{puff} Inhale 1 Puff in the morning and 1 Puff in the evening. [facility] montelukast 10 mg tablet 01-31 00:00: 00 Yes [id number] 10mg Take 1 tablet by mouth in the morning. [facility] tiotropium 18 mcg inhalation 0 15 00:00: 00 Yes [id number] 18ug Inhale 1 capsule in the morning. [facility] fluticasone propion-bella meteroL (ADVAIR DISKUS) 250-50 mcg/dose inhalation disk 15 00:00: 00 Yes [id number] 1{puff} Inhale 1 Puff in the morning and 1 Puff in the evening. [facility] montelukast 10 mg tablet 0 15 00:00: 00 Yes [id number] 10mg Take 1 tablet by mouth in the morning. [facility] tiotropium 18 mcg inhalation 2022-0 15 00:00: 00 Yes [id number] 18ug Inhale 1 capsule in the morning. [facility] fluticasone propion-bella meteroL (ADVAIR DISKUS) 250-50 mcg/dose inhalation disk 3-0 5-15 00:00: 00 Yes [id number] 1{puff} Inhale 1 Puff in the morning and 1 Puff in the evening. [facility] montelukast 10 mg tablet 3-0 5-15 00:00: 00 Yes [id number] 10mg Take 1 tablet by mouth in the morning. [facility] tiotropium 18 mcg inhalation 3-0 5-15 00:00: 00 Yes [id number] 18ug Inhale 1 capsule in the morning. [facility] fluticasone propion-bella meteroL (ADVAIR DISKUS) 250-50 mcg/dose inhalation disk 3-0 5-15 00:00: 00 Yes [id number] 1{puff} Inhale 1 Puff in the morning and 1 Puff in the evening. [facility] montelukast 10 mg tablet 2022-0 -15 00:00: 00 Yes [id number] 10mg Take 1 tablet by mouth in the morning. [facility] tiotropium 18 mcg inhalation 2022-0 -15 00:00: 00 Yes [id number] 18ug Inhale 1 capsule in the morning. [facility] fluticasone propion-bella meteroL (ADVAIR DISKUS) 250-50 mcg/dose inhalation disk 3-0 -15 00:00: 00 Yes [id number] 1{puff} Inhale 1 Puff in the morning and 1 Puff in the evening. [facility] montelukast 10 mg tablet 3-0 -15 00:00: 00 Yes [id number] 10mg Take 1 tablet by mouth in the morning. [facility] tiotropium 18 mcg inhalation 3-0 5-15 00:00: 00 Yes [id number] 18ug Inhale 1 capsule in the morning. [facility] fluticasone propion-bella meteroL (ADVAIR DISKUS) 250-50 mcg/dose inhalation disk 3-0 5-15 00:00: 00 Yes [id number] 1{puff} Inhale 1 Puff in the morning and 1 Puff in the evening. [facility] montelukast 10 mg tablet 2022-0 -15 00:00: 00 Yes [id number] 10mg Take 1 tablet by mouth in the morning. [facility] tiotropium 18 mcg inhalation 3-0 5-15 00:00: 00 Yes [id number] 18ug Inhale 1 capsule in the morning. [facility] fluticasone propion-bella meteroL (ADVAIR DISKUS) 250-50 mcg/dose inhalation disk 3-0 5-15 00:00: 00 Yes [id number] 1{puff} Inhale 1 Puff in the morning and 1 Puff in the evening. [facility] montelukast 10 mg tablet 2022-0 -15 00:00: 00 Yes [id number] 10mg Take 1 tablet by mouth in the morning. [facility] tiotropium 18 mcg inhalation 3-0 -15 00:00: 00 Yes [id number] 18ug Inhale 1 capsule in the morning. [facility] fluticasone propion-bella meteroL (ADVAIR DISKUS) 250-50 mcg/dose inhalation disk 2022-0 -15 00:00: 00 Yes [id number] 1{puff} Inhale 1 Puff in the morning and 1 Puff in the evening. [facility] montelukast 10 mg tablet 2022-0 -15 00:00: 00 Yes [id number] 10mg Take 1 tablet by mouth in the morning. [facility] tiotropium 18 mcg inhalation 3-0 5-15 00:00: 00 Yes [id number] 18ug Inhale 1 capsule in the morning. [facility] fluticasone propion-bella meteroL (ADVAIR DISKUS) 250-50 mcg/dose inhalation disk 3-0 5-15 00:00: 00 Yes [id number] 1{puff} Inhale 1 Puff in the morning and 1 Puff in the evening. [facility] montelukast 10 mg tablet 3-0 5-15 00:00: 00 Yes [id number] 10mg Take 1 tablet by mouth in the morning. [facility] tiotropium 18 mcg inhalation 3-0 5-15 00:00: 00 Yes [id number] 18ug Inhale 1 capsule in the morning. [facility] fluticasone propion-bella meteroL (ADVAIR DISKUS) 250-50 mcg/dose inhalation disk 3-0 5-15 00:00: 00 Yes [id number] 1{puff} Inhale 1 Puff in the morning and 1 Puff in the evening. [facility] montelukast 10 mg tablet 3-0 5-15 00:00: 00 Yes [id number] 10mg Take 1 tablet by mouth in the morning. [facility] tiotropium 18 mcg inhalation 3-0 5-15 00:00: 00 Yes [id number] 18ug Inhale 1 capsule in the morning. [facility] fluticasone propion-bella meteroL (ADVAIR DISKUS) 250-50 mcg/dose inhalation disk 3-0 5-15 00:00: 00 Yes [id number] 1{puff} Inhale 1 Puff in the morning and 1 Puff in the evening. [facility] montelukast 10 mg tablet 2022-0 5-15 00:00: 00 Yes [id number] 10mg Take 1 tablet by mouth in the morning. [facility] tiotropium 18 mcg inhalation 3-0 5-15 00:00: 00 Yes [id number] 18ug Inhale 1 capsule in the morning. [facility] montelukast 10 mg tablet 3-0 5-15 00:00: 00 Yes [id number] 10mg Take 1 tablet by mouth in the morning. [facility] montelukast 10 mg tablet 3-0 5-15 00:00: 00 Yes [id number] 10mg Take 1 tablet by mouth in the morning. [facility] montelukast 10 mg tablet 3-0 5-15 00:00: 00 Yes [id number] 10mg Take 1 tablet by mouth in the morning. [facility] montelukast 10 mg tablet 15 00:00: 00 Yes [id number] 10mg Take 1 tablet by mouth in the morning. [facility] montelukast 10 mg tablet 15 00:00: 00 Yes [id number] 10mg Take 1 tablet by mouth in the morning. [facility] montelukast 10 mg tablet 15 00:00: 00 Yes [id number] 10mg Take 1 tablet by mouth in the morning. [facility] fluticasone propion-bella meteroL (ADVAIR DISKUS) 250-50 mcg/dose inhalation disk 01-31 00:00: 00 04-19 00:00 :00 No [id number] 1{puff} Inhale 1 Puff in the morning and 1 Puff in the evening. [facility] tiotropium 18 mcg inhalation 01-31 00:00: 00 04-19 00:00 :00 No [id number] 18ug Inhale 1 capsule in the morning. [facility] fluticasone propion-bella meteroL (ADVAIR DISKUS) 250-50 mcg/dose inhalation disk 01-31 00:00: 00 04-19 00:00 :00 No [id number] 1{puff} Inhale 1 Puff in the morning and 1 Puff in the evening. [facility] tiotropium 18 mcg inhalation 01-31 00:00: 00 04-19 00:00 :00 No [id number] 18ug Inhale 1 capsule in the morning. [facility] albuterol 90 mcg/actuati on inhaler 01-31 00:00: 00 02-04 00:00 :00 No [id number] 2{puff} Inhale 2 Puffs every 4 (four) hours as needed for Wheezing, Shortness of Breath or Bronchospa sm. [facility] ipratropium -albuteroL (DUONEB) 0.5 mg-3 mg(2.5 mg base)/3 mL nebulizer solution 3 mL 01-29 14:30: 00 01-29 13:29 :00 No 3mL 3 mL, Inhalation , ONCE, 1 dose, On 01/29/23 at 0930, [facility] predniSONE (DELTASONE) tablet 60 mg 01-29 13:30: 00 01-29 13:22 :00 No 60mg 60 mg, Oral, ONCE, 1 dose, [facility] 0830[facility] (DUONEB) 0.5 mg-3 mg(2.5 mg base)/3 mL nebulizer solution 3 mL 01-27 13:00: 00 Yes 3mL 3 mL, Inhalation , QID, First dose on Elizabeth 01/27/23 at 0800, Until Discontinu ed, Routine [facility] ipratropium -albuteroL (DUONEB) 0.5 mg-3 mg(2.5 mg base)/3 mL nebulizer solution 3 mL 01-24 18:00: 00 01-24 18:15 :00 No 3mL 3 mL, Inhalation , ONCE, 1 dose, On 01/24/23 at 1300, [facility] furosemide (LASIX) injection 40 mg 01-24 18:00: 00 01-24 18:42 :00 No 40mg 40 mg, IV Push, ONCE, 1 dose, On Tue01/24/23 at 1300, [facility] aspirin tablet 325 mg 01-24 18:00: 00 01-24 18:44 :00 No 325mg 325 mg, Oral, ONCE, 1 dose, On Tue01/24/23 at 1300, STAT [facility] busPIRone 10 mg tablet 01-24 15:48: 43 Yes 10mg Take 1 tablet by mouth in the morning and 1 tablet in the evening. [facility] rivaroxaban 15 mg tablet 01-24 15:48: 43 Yes 15mg Take 1 tablet by mouth in the morning. [facility] ASPIRIN ORAL 2023-0 5-08 15:48: 43 Yes 81mg Take 81 mg by mouth in the morning. tablet [facility] busPIRone 10 mg tablet 2023-0 5-08 15:48: 43 Yes 10mg Take 1 tablet by mouth in the morning and 1 tablet in the evening. [facility] rivaroxaban 15 mg tablet 2023-0 5-08 15:48: 43 Yes 15mg Take 1 tablet by mouth in the morning. [facility]AL [facility]23-0 5-08 15:48: 43 Yes 81mg Take 81 mg by mouth in the morning. tablet [facility] busPIRone 10 mg tablet 3-0 5-08 15:48: 43 Yes 10mg Take 1 tablet by mouth in the morning and 1 tablet in the evening. [facility] rivaroxaban 15 mg tablet 3-0 5-08 15:48: 43 Yes 15mg Take 1 tablet by mouth in the morning. [facility] ASPIRIN ORAL 2023-0 5-08 15:48: 43 Yes 81mg Take 81 mg by mouth in the morning. tablet [facility] busPIRone 10 mg tablet 3-0 5-08 15:48: 43 Yes 10mg Take 1 tablet by mouth in the morning and 1 tablet in the evening. [facility] rivaroxaban 15 mg tablet 2022-0 5-08 15:48: 43 Yes 15mg Take 1 tablet by mouth in the morning. [facility] ASPIRIN ORAL 2023-0 5-08 15:48: 43 Yes 81mg Take 81 mg by mouth in the morning. tablet [facility] busPIRone 10 mg tablet 3-0 5-08 15:48: 43 Yes 10mg Take 1 tablet by mouth in the morning and 1 tablet in the evening. [facility] rivaroxaban 15 mg tablet 3-0 5-08 15:48: 43 Yes 15mg Take 1 tablet by mouth in the morning. [facility] ASPIRIN ORAL 2023-0 5-08 15:48: 43 Yes 81mg Take 81 mg by mouth in the morning. tablet [facility] busPIRone 10 mg tablet 3-0 -08 15:48: 43 Yes 10mg Take 1 tablet by mouth in the morning and 1 tablet in the evening. [facility] rivaroxaban 15 mg tablet 2022-0 5-08 15:48: 43 Yes 15mg Take 1 tablet by mouth in the morning. [facility] ASPIRIN ORAL 3-0 5-08 15:48: 43 Yes 81mg Take 81 mg by mouth in the morning. tablet [facility] busPIRone 10 mg tablet 2022-0 5-08 15:48: 43 Yes 10mg Take 1 tablet by mouth in the morning and 1 tablet in the evening. [facility] rivaroxaban 15 mg tablet 2022-0 5-08 15:48: 43 Yes 15mg Take 1 tablet by mouth in the morning. [facility] ASPIRIN ORAL 3-0 5-08 15:48: 43 Yes 81mg Take 81 mg by mouth in the morning. tablet [facility] busPIRone 10 mg tablet 2022-0 -08 15:48: 43 Yes 10mg Take 1 tablet by mouth in the morning and 1 tablet in the evening. [facility] rivaroxaban 15 mg tablet 2022-0 -08 15:48: 43 Yes 15mg Take 1 tablet by mouth in the morning. [facility] ASPIRIN ORAL 3-0 5-08 15:48: 43 Yes 81mg Take 81 mg by mouth in the morning. tablet [facility] busPIRone 10 mg tablet 2022-0 5-08 15:48: 43 Yes 10mg Take 1 tablet by mouth in the morning and 1 tablet in the evening. [facility] rivaroxaban 15 mg tablet 2022-0 -08 15:48: 43 Yes 15mg Take 1 tablet by mouth in the morning. [facility] ASPIRIN ORAL 2023-0 5-08 15:48: 43 Yes 81mg Take 81 mg by mouth in the morning. tablet [facility] busPIRone 10 mg tablet 3-0 5-08 15:48: 43 Yes 10mg Take 1 tablet by mouth in the morning and 1 tablet in the evening. [facility] rivaroxaban 15 mg tablet 2022-0 01-24 15:48: 43 Yes 15mg Take 1 tablet by mouth in the morning. [facility] ASPIRIN ORAL 2022-0 01-24 15:48: 43 Yes 81mg Take 81 mg by mouth in the morning. tablet [facility] busPIRone 10 mg tablet 2022-0 01-24 15:48: 43 Yes 10mg Take 1 tablet by mouth in the morning and 1 tablet in the evening. [facility] rivaroxaban 15 mg tablet 0 01-24 15:48: 43 Yes 15mg Take 1 tablet by mouth in the morning. [facility] ASPIRIN ORAL 2022-0 01-24 15:48: 43 Yes 81mg Take 81 mg by mouth in the morning. tablet [facility] busPIRone 10 mg tablet 2022-0 01-24 15:48: 43 Yes 10mg Take 1 tablet by mouth in the morning and 1 tablet in the evening. [facility] rivaroxaban 15 mg tablet 0 01-24 15:48: 43 Yes 15mg Take 1 tablet by mouth in the morning. [facility] ASPIRIN ORAL 2022-0 01-24 15:48: 43 Yes 81mg Take 81 mg by mouth in the morning. tablet [facility] busPIRone 10 mg tablet 0 01-24 15:48: 43 Yes 10mg Take 1 tablet by mouth in the morning and 1 tablet in the evening. [facility] rivaroxaban 15 mg tablet 01-24 15:48: 43 Yes 15mg Take 1 tablet by mouth in the morning. [facility] ASPIRIN ORAL 2022-0 01-24 15:48: 43 Yes 81mg Take 81 mg by mouth in the morning. tablet [facility] levalbutero l (XOPENEX) nebulizer solution 1.25 mg 01-23 00:15: 00 01-22 23:35 :00 No 1.25mg 1.25 mg, Inhalation , ONCE, 1 dose, On 01/22/23 at 1915, Routine [facility] ipratropium (ATROVENT) 0.02 % nebulizer solution 0.5 mg 01-22 23:30: 00 01-22 23:36 :00 No .5mg 0.5 mg, Inhalation , ONCE, 1 dose, On Tue01/22/23 at 1830, MICHAEL [facility] diltiazem (CARDIZEM) tablet 30 mg 01-21 23:00: 00 Yes 30mg 30 mg, Oral, Q6H, First dose on Tue01/21/23 at 1800, Until Discontinu ed, Routine [facility] methylpredn isolone sod succ (SOLU-MEDRO L) injection 125 mg 01-21 23:00: 00 Yes 125mg 125 mg, Intravenou s, Q6H, First dose on Tue01/21/23 at 1800, Until Discontinu ed, Routine [facility] ipratropium -albuteroL (DUONEB) 0.5 mg-3 mg(2.5 mg base)/3 mL nebulizer solution 3 mL 01-21 20:45: 00 01-21 19:54 :00 No 3mL 3 mL, Inhalation , ONCE, 1 dose, On Tue01/21/23 at 1545, Routine [facility] diltiazem (CARDIZEM IV) injection 15 mg 01-21 19:45: 00 01-21 20:06 :00 No 15mg 15 mg, IV Push, ONCE, 1 dose, On Tue01/21/23 at 1445, STAT
Fa culty member approving Restricted medication : LOUIS HONG [facility] NaCl 0.9% (NS) bolus infusion 1,000 mL 01-21 19:45: 00 01-21 22:17 :00 No 1000mL at 999 mL/hr, 1,000 mL, IV Infusion, ONCE, 1 dose, On Tue01/21/23 at 1445, STAT [facility] predniSONE 20 mg tablet 01-20 00:00: 00 01-25 04:59 :00 No [id number] 40mg Take 2 tablets by mouth in the morning for 4 days. [facility] predniSONE 20 mg tablet 2022-0 5-04 00:00: 00 01-25 04:59 :00 No [id number] 40mg Take 2 tablets by mouth in the morning for 4 days. [facility] predniSONE 20 mg tablet 2022-0 5-04 00:00: 00 01-25 04:59 :00 No [id number] 40mg Take 2 tablets by mouth in the morning for 4 days. [facility] predniSONE 20 mg tablet 2022-0 5-04 00:00: 00 01-25 04:59 :00 No [id number] 40mg Take 2 tablets by mouth in the morning for 4 days. [facility] predniSONE 20 mg tablet 2022-0 5- 00:00: 00 01-25 04:59 :00 No [id number] 40mg Take 2 tablets by mouth in the morning for 4 days. [facility] predniSONE 20 mg tablet 2022-0 04 00:00: 00 01-25 04:59 :00 No [id number] 40mg Take 2 tablets by mouth in the morning for 4 days. [facility] predniSONE 20 mg tablet 2022-0 01-20 00:00: 00 01-25 04:59 :00 No [id number] 40mg Take 2 tablets by mouth in the morning for 4 days. [facility] enoxaparin (LOVENOX) injection 40 mg 01-19 22:00: 00 Yes 40mg 40 mg, Subcutaneo us, DAILY, First dose on Tue01/19/23 at 1700, Until Discontinu ed, Routine [facility] levalbutero l (XOPENEX) nebulizer solution 1.25 mg 01-19 21:00: 00 Yes 1.25mg 1.25 mg, Inhalation , QID, First dose (after last modificati on) on Tue01/19/23 at 1600, Until Discontinu ed, Routine [facility] ipratropium (ATROVENT) 0.02 % nebulizer solution 0.5 mg 01-19 21:00: 00 Yes .5mg 0.5 mg, Inhalation , QID, First dose (after last modificati on) on Tue01/19/23 at 1600, Until Discontinu ed, [facility]ine [facility] tablet 01-19 19:49: 16 Yes 10mg Take 1 tablet by mouth in the morning and 1 tablet in the evening. [facility] rivaroxaban 15 mg tablet 01-19 19:49: 16 Yes 15mg Take 1 tablet by mouth in the morning. [facility] ASPIRIN ORAL 0 01-19 19:49: 16 Yes 81mg Take 81 mg by mouth in the morning. tablet [facility] busPIRone 10 mg tablet 01-19 19:49: 16 Yes 10mg Take 1 tablet by mouth in the morning and 1 tablet in the evening. [facility] rivaroxaban 15 mg tablet 01-19 19:49: 16 Yes 15mg Take 1 tablet by mouth in the morning. [facility] ASPIRIN ORAL 0 01-19 19:49: 16 Yes 81mg Take 81 mg by mouth in the morning. tablet [facility] bus[facility] 10 mg tablet 01-19 19:49: 16 Yes 10mg Take 1 tablet by mouth in the morning and 1 tablet in the evening. [facility] rivaroxaban 15 mg tablet 01-19 19:49: 16 Yes 15mg Take 1 tablet by mouth in the morning. [facility] ASPIRIN ORAL 2022-0 01-19 19:49: 16 Yes 81mg Take 81 mg by mouth in the morning. tablet [facility] bus[facility]IRone 10 mg tablet 01-19 19:49: 16 Yes 10mg Take 1 tablet by mouth in the morning and 1 tablet in the evening. [facility] rivaroxaban 15 mg tablet 0 01-19 19:49: 16 Yes 15mg Take 1 tablet by mouth in the morning. [facility] ASPIRIN ORAL 2022-0 01-19 19:49: 16 Yes 81mg Take 81 mg by mouth in the morning. tablet [facility] busPIRone 10 mg tablet 01-19 19:49: 16 Yes 10mg Take 1 tablet by mouth in the morning and 1 tablet in the evening. [facility] rivaroxaban 15 mg tablet 01-19 19:49: 16 Yes 15mg Take 1 tablet by mouth in the morning. [facility] ASPIRIN ORAL 01-19 19:49: 16 Yes 81mg Take 81 mg by mouth in the morning. tablet [facility] busPIRone 10 mg tablet 01-19 19:49: 16 Yes 10mg Take 1 tablet by mouth in the morning and 1 tablet in the evening. [facility] rivaroxaban 15 mg tablet 01-19 19:49: 16 Yes 15mg Take 1 tablet by mouth in the morning. [facility] ASPIRIN ORAL 01-19 19:49: 16 Yes 81mg Take 81 mg by mouth in the morning. tablet [facility] benazepriL 10 mg tablet 01-19 17:28: 05 01-19 00:00 :00 No 10mg Take 1 tablet by mouth in the morning. [facility] potassium chloride (KCL-20 ORAL) 01-19 17:28: 01-19 00:00 :00 No 1{tbl} Take 1 tablet by mouth in the morning and 1 tablet in the evening. [facility] aspirin chewable tablet 81 mg 01-19 14:00: 00 Yes 81mg 81 mg, Oral, DAILY, First dose on Tue01/19/23 at 0900, Until Discontinu ed [facility] predniSONE (DELTASONE) tablet 40 mg 01-19 14:00: 00 01-24 13:59 :00 No 40mg 40 mg, Oral, DAILY, 5 doses, First dose on Tue01/19/23 at 0900, Last dose on Tue01/23/23 at 0900, Routine [facility] busPIRone (BUSPAR) tablet 10 mg 01-19 13:00: 00 Yes 10mg 10 mg, Oral, BID, First dose on Tue01/19/23 at 0800, Until Discontinu ed, Routine [facility] ipratropium (ATROVENT) 0.02 % nebulizer solution 0.5 mg 01-19 13:00: 00 01-19 19:13 :37 No .5mg 0.5 mg, Inhalation , TID, First dose (after last modificati on) on Tue01/19/23 at 0800, Until Discontinu ed, Routine [facility] levalbutero l (XOPENEX) nebulizer solution 1.25 mg 01-19 13:00: 00 01-19 19:13 :37 No 1.25mg 1.25 mg, Inhalation , TID, First dose on Tue01/19/23 at 0800, Until Discontinu ed, Routine [facility] sodium polystyrene sulfonate (KAYEXALATE ) 15 gram/60 mL suspension 15 g 01-19 13:00: 00 01-19 13:22 :00 No 15g 15 g, Oral, ONCE, 1 dose, On Tue01/19/23 at 0800, Routine [facility] ipratropium (ATROVENT) 0.02 % nebulizer solution 0.5 mg 01-19 09:00: 00 01-19 12:09 :19 No .5mg 0.5 mg, Inhalation , Q4H, First dose on Tue01/19/23 at 0400, Until Discontinu ed, Routine [facility] levoFLOXaci n (LEVAQUIN) tablet 500 mg 01-19 08:15: 00 01-24 08:14 :00 No 500mg 500 mg, Oral, Q24H ABX, 5 doses, First dose on Tue01/19/23 at 0315, Last dose on Tue01/23/23 at 0315, MICHAEL
Re ason for Anti-Infec tive: Empiric Therapy for Suspected Infection< br>Empiric Therapy Site: Respirator y
Durat ion of therapy: 5 days [facility] guaiFENesin 100 mg/5 mL solution 200 mg 01-19 08:04: 52 Yes 200mg 200 mg, Oral, Q6HPRN, Starting on Tue01/19/23 at 0304, Until Discontinu ed, Routine, Cough [facility] ondansetron (ZOFRAN (PF)) injection 4 mg 01-19 08:03: 53 Yes 4mg 4 mg, Slow IV Push, Q6HPRN, Starting on Tue01/19/23 at 0303, Until Discontinu ed, Routine, Nausea and Vomiting (N/V) [facility] morpHINE (2 mg/mL) injection 2 mg 01-19 08:03: 43 01-20 08:02 :43 No 2mg 2 mg, Slow IV Push, Q4HPRN, Starting on Tue01/19/23 at 0303, Until Elizabeth 01/20/23 at 0302, Routine, Pain (scale 7-10) [facility] HYDROcodone -acetaminop hen (NORCO 5) 5-325 mg tablet 1 tablet 01-19 08:03: 39 01-21 08:02 :39 No 1{tbl} 1 tablet, Oral, Q6HPRN, Starting on Tue01/19/23 at 0303, Until Tue01/21/23 at 0302, Routine, Pain (scale 4-6) [facility] acetaminoph en (TYLENOL) tablet 650 mg 01-19 08:03: 35 Yes 650mg 650 mg, Oral, Q6HPRN, Starting on Tue01/19/23 at 0303, Until Discontinu ed, Routine, Pain (scale 1-3) [facility] levalbutero l (XOPENEX) nebulizer solution 1.25 mg 01-19 07:30: 00 01-19 07:08 :00 No 1.25mg 1.25 mg, Inhalation , ONCE, 1 dose, On Tue01/19/23 at 0230, Routine [facility] dexamethaso ne sod phos PF injection 10 mg 01-19 06:58: 00 01-19 07:06 :00 No 10mg 10 mg, Oral, ONCE, 1 dose, On Tue01/19/23 at 0200, 1 mL [facility] ipratropium (ATROVENT) 0.02 % nebulizer solution 0.5 mg 01-19 06:45: 00 01-19 07:09 :00 No .5mg 0.5 mg, Inhalation , ONCE, 1 dose, On Tue01/19/23 at 0145, MICHAEL [facility] ipratropium 0.02 % nebulizer solution 01-19 00:00: 00 Yes [id number] .5mg Inhale 2.5 mL every 6 (six) hours as needed for Wheezing, Shortness of Breath, Bronchospa sm or Chest tightness. [facility] guaiFENesin 100 mg/5 mL solution 01-19 00:00: 00 Yes [id number] 200mg Take 10 mL by mouth every 6 (six) hours as needed for Cough. [facility] ipratropium 0.02 % nebulizer solution 01-19 00:00: 00 Yes [id number] .5mg Inhale 2.5 mL every 6 (six) hours as needed for Wheezing, Shortness of Breath, Bronchospa sm or Chest tightness. [facility] guaiFENesin 100 mg/5 mL solution 01-19 00:00: 00 Yes [id number] 200mg Take 10 mL by mouth every 6 (six) hours as needed for Cough. [facility] ipratropium 0.02 % nebulizer solution 01-19 00:00: 00 Yes [id number] .5mg Inhale 2.5 mL every 6 (six) hours as needed for Wheezing, Shortness of Breath, Bronchospa sm or Chest tightness. [facility] guaiFENesin 100 mg/5 mL solution 01-19 00:00: 00 Yes [id number] 200mg Take 10 mL by mouth every 6 (six) hours as needed for Cough. [facility] ipratropium 0.02 % nebulizer solution 01-19 00:00: 00 Yes [id number] .5mg Inhale 2.5 mL every 6 (six) hours as needed for Wheezing, Shortness of Breath, Bronchospa sm or Chest tightness. [facility] guaiFENesin 100 mg/5 mL solution 01-19 00:00: 00 Yes [id number] 200mg Take 10 mL by mouth every 6 (six) hours as needed for Cough. [facility] ipratropium 0.02 % nebulizer solution 01-19 00:00: 00 Yes [id number] .5mg Inhale 2.5 mL every 6 (six) hours as needed for Wheezing, Shortness of Breath, Bronchospa sm or Chest tightness. [facility] guaiFENesin 100 mg/5 mL solution 01-19 00:00: 00 Yes [id number] 200mg Take 10 mL by mouth every 6 (six) hours as needed for Cough. [facility] ipratropium 0.02 % nebulizer solution 01-19 00:00: 00 Yes [id number] .5mg Inhale 2.5 mL every 6 (six) hours as needed for Wheezing, Shortness of Breath, Bronchospa sm or Chest tightness. [facility] guaiFENesin 100 mg/5 mL solution 01-19 00:00: 00 Yes [id number] 200mg Take 10 mL by mouth every 6 (six) hours as needed for Cough. [facility] ipratropium 0.02 % nebulizer solution 01-19 00:00: 00 Yes [id number] .5mg Inhale 2.5 mL every 6 (six) hours as needed for Wheezing, Shortness of Breath, Bronchospa sm or Chest tightness. [facility] guaiFENesin 100 mg/5 mL solution 01-19 00:00: 00 Yes [id number] 200mg Take 10 mL by mouth every 6 (six) hours as needed for Cough. [facility] ipratropium 0.02 % nebulizer solution 01-19 00:00: 00 Yes [id number] .5mg Inhale 2.5 mL every 6 (six) hours as needed for Wheezing, Shortness of Breath, Bronchospa sm or Chest tightness. [facility] guaiFENesin 100 mg/5 mL solution 01-19 00:00: 00 Yes [id number] 200mg Take 10 mL by mouth every 6 (six) hours as needed for Cough. [facility] ipratropium 0.02 % nebulizer solution 01-19 00:00: 00 Yes [id number] .5mg Inhale 2.5 mL every 6 (six) hours as needed for Wheezing, Shortness of Breath, Bronchospa sm or Chest tightness. [facility] guaiFENesin 100 mg/5 mL solution 01-19 00:00: 00 Yes [id number] 200mg Take 10 mL by mouth every 6 (six) hours as needed for Cough. [facility] ipratropium 0.02 % nebulizer solution 01-19 00:00: 00 Yes [id number] .5mg Inhale 2.5 mL every 6 (six) hours as needed for Wheezing, Shortness of Breath, Bronchospa sm or Chest tightness. [facility] guaiFENesin 100 mg/5 mL solution 01-19 00:00: 00 Yes [id number] 200mg Take 10 mL by mouth every 6 (six) hours as needed for Cough. [facility] ipratropium 0.02 % nebulizer solution 01-19 00:00: 00 Yes [id number] .5mg Inhale 2.5 mL every 6 (six) hours as needed for Wheezing, Shortness of Breath, Bronchospa sm or Chest tightness. [facility] guaiFENesin 100 mg/5 mL solution 01-19 00:00: 00 Yes [id number] 200mg Take 10 mL by mouth every 6 (six) hours as needed for Cough. [facility] ipratropium 0.02 % nebulizer solution 01-19 00:00: 00 Yes [id number] .5mg Inhale 2.5 mL every 6 (six) hours as needed for Wheezing, Shortness of Breath, Bronchospa sm or Chest tightness. [facility] guaiFENesin 100 mg/5 mL solution 01-19 00:00: 00 Yes [id number] 200mg Take 10 mL by mouth every 6 (six) hours as needed for Cough. [facility] ipratropium 0.02 % nebulizer solution 01-19 00:00: 00 Yes [id number] .5mg Inhale 2.5 mL every 6 (six) hours as needed for Wheezing, Shortness of Breath, Bronchospa sm or Chest tightness. [facility] guaiFENesin 100 mg/5 mL solution 01-19 00:00: 00 Yes [id number] 200mg Take 10 mL by mouth every 6 (six) hours as needed for Cough. [facility] ipratropium 0.02 % nebulizer solution 01-19 00:00: 00 Yes [id number] .5mg Inhale 2.5 mL every 6 (six) hours as needed for Wheezing, Shortness of Breath, Bronchospa sm or Chest tightness. [facility] guaiFENesin 100 mg/5 mL solution 01-19 00:00: 00 Yes [id number] 200mg Take 10 mL by mouth every 6 (six) hours as needed for Cough. [facility] ipratropium 0.02 % nebulizer solution 01-19 00:00: 00 Yes [id number] .5mg Inhale 2.5 mL every 6 (six) hours as needed for Wheezing, Shortness of Breath, Bronchospa sm or Chest tightness. [facility] guaiFENesin 100 mg/5 mL solution 01-19 00:00: 00 Yes [id number] 200mg Take 10 mL by mouth every 6 (six) hours as needed for Cough. [facility] ipratropium 0.02 % nebulizer solution 01-19 00:00: 00 Yes [id number] .5mg Inhale 2.5 mL every 6 (six) hours as needed for Wheezing, Shortness of Breath, Bronchospa sm or Chest tightness. [facility] guaiFENesin 100 mg/5 mL solution 01-19 00:00: 00 Yes [id number] 200mg Take 10 mL by mouth every 6 (six) hours as needed for Cough. [facility] ipratropium 0.02 % nebulizer solution 01-19 00:00: 00 Yes [id number] .5mg Inhale 2.5 mL every 6 (six) hours as needed for Wheezing, Shortness of Breath, Bronchospa sm or Chest tightness. [facility] guaiFENesin 100 mg/5 mL solution 01-19 00:00: 00 Yes [id number] 200mg Take 10 mL by mouth every 6 (six) hours as needed for Cough. [facility] ipratropium 0.02 % nebulizer solution 01-19 00:00: 00 Yes [id number] .5mg Inhale 2.5 mL every 6 (six) hours as needed for Wheezing, Shortness of Breath, Bronchospa sm or Chest tightness. [facility] guaiFENesin 100 mg/5 mL solution 01-19 00:00: 00 Yes [id number] 200mg Take 10 mL by mouth every 6 (six) hours as needed for Cough. [facility] ipratropium 0.02 % nebulizer solution 01-19 00:00: 00 Yes [id number] .5mg Inhale 2.5 mL every 6 (six) hours as needed for Wheezing, Shortness of Breath, Bronchospa sm or Chest tightness. [facility] guaiFENesin 100 mg/5 mL solution 01-19 00:00: 00 Yes [id number] 200mg Take 10 mL by mouth every 6 (six) hours as needed for Cough. [facility] guaiFENesin 100 mg/5 mL solution 01-19 00:00: 00 Yes [id number] 200mg Take 10 mL by mouth every 6 (six) hours as needed for Cough. [facility] guaiFENesin 100 mg/5 mL solution 01-19 00:00: 00 Yes [id number] 200mg Take 10 mL by mouth every 6 (six) hours as needed for Cough. [facility] guaiFENesin 100 mg/5 mL solution 2023-0 5-03 00:00: 00 Yes [id number] 200mg Take 10 mL by mouth every 6 (six) hours as needed for Cough. [facility] guaiFENesin 100 mg/5 mL solution 3-0 5-03 00:00: 00 Yes [id number] 200mg Take 10 mL by mouth every 6 (six) hours as needed for Cough. [facility] guaiFENesin 100 mg/5 mL solution 3-0 5-03 00:00: 00 Yes [id number] 200mg Take 10 mL by mouth every 6 (six) hours as needed for Cough. [facility] guaiFENesin 100 mg/5 mL solution 3-0 5-03 00:00: 00 Yes [id number] 200mg Take 10 mL by mouth every 6 (six) hours as needed for Cough. [facility] guaiFENesin 100 mg/5 mL solution 3-0 5-03 00:00: 00 Yes [id number] 200mg Take 10 mL by mouth every 6 (six) hours as needed for Cough. [facility] guaiFENesin 100 mg/5 mL solution 3-0 5-03 00:00: 00 Yes [id number] 200mg Take 10 mL by mouth every 6 (six) hours as needed for Cough. [facility] guaiFENesin 100 mg/5 mL solution 3-0 5-03 00:00: 00 Yes [id number] 200mg Take 10 mL by mouth every 6 (six) hours as needed for Cough. [facility] guaiFENesin 100 mg/5 mL solution 3-0 5-03 00:00: 00 Yes [id number] 200mg Take 10 mL by mouth every 6 (six) hours as needed for Cough. [facility] guaiFENesin 100 mg/5 mL solution 2023-0 5-03 00:00: 00 Yes [id number] 200mg Take 10 mL by mouth every 6 (six) hours as needed for Cough. [facility] guaiFENesin 100 mg/5 mL solution 2023-0 5-03 00:00: 00 Yes [id number] 200mg Take 10 mL by mouth every 6 (six) hours as needed for Cough. [facility] guaiFENesin 100 mg/5 mL solution 01-19 00:00: 00 Yes [id number] 200mg Take 10 mL by mouth every 6 (six) hours as needed for Cough. [facility] ipratropium 0.02 % nebulizer solution 01-19 00:00: 00 02-17 00:00 :00 No [id number] .5mg Inhale 2.5 mL every 6 (six) hours as needed for Wheezing, Shortness of Breath, Bronchospa sm or Chest tightness. [facility] levoFLOXaci n 500 mg tablet 01-19 00:00: 00 01-24 04:59 :00 No [id number] 500mg Take 1 tablet by mouth in the morning for 4 days. [facility] levoFLOXaci n 500 mg tablet 01-19 00:00: 00 01-24 04:59 :00 No [id number] 500mg Take 1 tablet by mouth in the morning for 4 days. [facility] levoFLOXaci n 500 mg tablet 01-19 00:00: 00 01-24 04:59 :00 No [id number] 500mg Take 1 tablet by mouth in the morning for 4 days. [facility] levoFLOXaci n 500 mg tablet 01-19 00:00: 00 01-24 04:59 :00 No [id number] 500mg Take 1 tablet by mouth in the morning for 4 days. [facility] levoFLOXaci n 500 mg tablet 01-19 00:00: 00 01-24 04:59 :00 No [id number] 500mg Take 1 tablet by mouth in the morning for 4 days. [facility] levoFLOXaci n 500 mg tablet 01-19 00:00: 00 01-24 04:59 :00 No [id number] 500mg Take 1 tablet by mouth in the morning for 4 days. [facility] levalbutero l (XOPENEX) nebulizer solution 1.25 mg 01-17 13:00: 00 01-17 11:56 :39 No 1.25mg 1.25 mg, Inhalation , TID, First dose on Tue01/17/23 at 0800, Until Discontinu ed, Routine [facility] methylpredn isolone sod succ (SOLU-MEDRO L) injection 125 mg 01-17 12:00: 00 01-17 11:11 :00 No 125mg 125 mg, Intravenou s, ONCE, 1 dose, On Tue01/17/23 at 0700, 2 mL [facility] ipratropium (ATROVENT) 0.02 % nebulizer solution 0.5 mg 01-17 11:45: 00 01-17 11:42 :00 No .5mg 0.5 mg, Inhalation , ONCE, 1 dose, On Tue01/17/23 at 0645, MICHAEL [facility] albuterol 90 mcg/actuati on inhaler 01-17 00:00: 00 Yes [id number] 2{puff} Inhale 2 Puffs every 4 (four) hours as needed for Wheezing or Shortness of Breath. [facility] albuterol 2.5 mg /3 mL (0.083 %) nebulizer solution 01-17 00:00: 00 Yes [id number] 2.5mg Inhale 3 mL every 4 (four) hours. May also nebulize one extra every 6 hours. [facility] predniSONE 50 mg tablet 01-17 00:00: 00 Yes [id number] 50mg Take 1 tablet by mouth in the morning. [facility] benzonatate 200 mg capsule 01-17 00:00: 00 Yes [id number] 200mg Take 1 capsule by mouth 3 (three) times daily as needed for Cough. [facility] ipratropium 0.02 % nebulizer solution 01-17 00:00: 00 Yes [id number] .5mg Inhale 2.5 mL every 6 (six) hours as needed for Wheezing, Shortness of Breath, Bronchospa sm or Chest tightness. [facility] mcg/actuati on inhaler 01-17 00:00: 00 Yes [id number] 2{puff} Inhale 2 Puffs every 4 (four) hours as needed for Wheezing or Shortness of Breath. [facility] albuterol 2.5 mg /3 mL (0.083 %) nebulizer solution 01-17 00:00: 00 Yes [id number] 2.5mg Inhale 3 mL every 4 (four) hours. May also nebulize one extra every 6 hours. [facility] benzonatate 200 mg capsule 01-17 00:00: 00 Yes [id number] 200mg Take 1 capsule by mouth 3 (three) times daily as needed for Cough. [facility] albuterol 90 mcg/actuati on inhaler 01-17 00:00: 00 Yes [id number] 2{puff} Inhale 2 Puffs every 4 (four) hours as needed for Wheezing or Shortness of Breath. [facility] albuterol 2.5 mg /3 mL (0.083 %) nebulizer solution 01-17 00:00: 00 Yes [id number] 2.5mg Inhale 3 mL every 4 (four) hours. May also nebulize one extra every 6 hours. [facility] benzonatate 200 mg capsule 01-17 00:00: 00 Yes [id number] 200mg Take 1 capsule by mouth 3 (three) times daily as needed for Cough. [facility] al[facility]erol 90 mcg/actuati on inhaler 01-17 00:00: 00 Yes [id number] 2{puff} Inhale 2 Puffs every 4 (four) hours as needed for Wheezing or Shortness of Breath. [facility] albuterol 2.5 mg /3 mL (0.083 %) nebulizer solution 01-17 00:00: 00 Yes [id number] 2.5mg Inhale 3 mL every 4 (four) hours. May also nebulize one extra every 6 hours. [facility] ben[facility] mg capsule 01-17 00:00: 00 Yes [id number] 200mg Take 1 capsule by mouth 3 (three) times daily as needed for Cough. [facility] al[facility]erol 90 mcg/actuati on inhaler 01-17 00:00: 00 Yes [id number] 2{puff} Inhale 2 Puffs every 4 (four) hours as needed for Wheezing or Shortness of Breath. [facility] albuterol 2.5 mg /3 mL (0.083 %) nebulizer solution 01-17 00:00: 00 Yes [id number] 2.5mg Inhale 3 mL every 4 (four) hours. May also nebulize one extra every 6 hours. [facility] benzonatate 200 mg capsule 01-17 00:00: 00 Yes [id number] 200mg Take 1 capsule by mouth 3 (three) times daily as needed for Cough. [facility] albuterol 90 mcg/actuati on inhaler 01-17 00:00: 00 Yes [id number] 2{puff} Inhale 2 Puffs every 4 (four) hours as needed for Wheezing or Shortness of Breath. [facility] albuterol 2.5 mg /3 mL (0.083 %) nebulizer solution 01-17 00:00: 00 Yes [id number] 2.5mg Inhale 3 mL every 4 (four) hours. May also nebulize one extra every 6 hours. [facility] benzonatate 200 mg capsule 01-17 00:00: 00 Yes [id number] 200mg Take 1 capsule by mouth 3 (three) times daily as needed for Cough. [facility] albuterol 90 mcg/actuati on inhaler 01-17 00:00: 00 Yes [id number] 2{puff} Inhale 2 Puffs every 4 (four) hours as needed for Wheezing or Shortness of Breath. [facility] albuterol 2.5 mg /3 mL (0.083 %) nebulizer solution 01-17 00:00: 00 Yes [id number] 2.5mg Inhale 3 mL every 4 (four) hours. May also nebulize one extra every 6 hours. [facility] benzon[facility]ate 200 mg capsule 01-17 00:00: 00 Yes [id number] 200mg Take 1 capsule by mouth 3 (three) times daily as needed for Cough. [facility] albuterol 90 mcg/actuati on inhaler 01-17 00:00: 00 Yes [id number] 2{puff} Inhale 2 Puffs every 4 (four) hours as needed for Wheezing or Shortness of Breath. [facility] albuterol 2.5 mg /3 mL (0.083 %) nebulizer solution 01-17 00:00: 00 Yes [id number] 2.5mg Inhale 3 mL every 4 (four) hours. May also nebulize one extra every 6 hours. [facility] benzonatate 200 mg capsule 01-17 00:00: 00 Yes [id number] 200mg Take 1 capsule by mouth 3 (three) times daily as needed for Cough. [facility] albuterol 90 mcg/actuati on inhaler 01-17 00:00: 00 Yes [id number] 2{puff} Inhale 2 Puffs every 4 (four) hours as needed for Wheezing or Shortness of Breath. [facility] albuterol 2.5 mg /3 mL (0.083 %) nebulizer solution 01-17 00:00: 00 Yes [id number] 2.5mg Inhale 3 mL every 4 (four) hours. May also nebulize one extra every 6 hours. [facility] benzonatate 200 mg capsule 01-17 00:00: 00 Yes [id number] 200mg Take 1 capsule by mouth 3 (three) times daily as needed for Cough. [facility] albuterol 90 mcg/actuati on inhaler 01-17 00:00: 00 Yes [id number] 2{puff} Inhale 2 Puffs every 4 (four) hours as needed for Wheezing or Shortness of Breath. [facility] albuterol 2.5 mg /3 mL (0.083 %) nebulizer solution 01-17 00:00: 00 Yes [id number] 2.5mg Inhale 3 mL every 4 (four) hours. May also nebulize one extra every 6 hours. [facility] benzonatate 200 mg capsule 01-17 00:00: 00 Yes [id number] 200mg Take 1 capsule by mouth 3 (three) times daily as needed for Cough. [facility] albuterol 90 mcg/actuati on inhaler 01-17 00:00: 00 Yes [id number] 2{puff} Inhale 2 Puffs every 4 (four) hours as needed for Wheezing or Shortness of Breath. [facility] albuterol 2.5 mg /3 mL (0.083 %) nebulizer solution 01-17 00:00: 00 Yes [id number] 2.5mg Inhale 3 mL every 4 (four) hours. May also nebulize one extra every 6 hours. [facility] benzonatate 200 mg capsule 01-17 00:00: 00 Yes [id number] 200mg Take 1 capsule by mouth 3 (three) times daily as needed for Cough. [facility] albuterol 90 mcg/actuati on inhaler 01-17 00:00: 00 Yes [id number] 2{puff} Inhale 2 Puffs every 4 (four) hours as needed for Wheezing or Shortness of Breath. [facility] albuterol 2.5 mg /3 mL (0.083 %) nebulizer solution 01-17 00:00: 00 Yes [id number] 2.5mg Inhale 3 mL every 4 (four) hours. May also nebulize one extra every 6 hours. [facility] benzonatate 200 mg capsule 01-17 00:00: 00 Yes [id number] 200mg Take 1 capsule by mouth 3 (three) times daily as needed for Cough. [facility] albuterol 90 mcg/actuati on inhaler 01-17 00:00: 00 Yes [id number] 2{puff} Inhale 2 Puffs every 4 (four) hours as needed for Wheezing or Shortness of Breath. [facility] albuterol 2.5 mg /3 mL (0.083 %) nebulizer solution 01-17 00:00: 00 Yes [id number] 2.5mg Inhale 3 mL every 4 (four) hours. May also nebulize one extra every 6 hours. [facility] benzonatate 200 mg capsule 01-17 00:00: 00 Yes [id number] 200mg Take 1 capsule by mouth 3 (three) times daily as needed for Cough. [facility] albuterol 90 mcg/actuati on inhaler 01-17 00:00: 00 Yes [id number] 2{puff} Inhale 2 Puffs every 4 (four) hours as needed for Wheezing or Shortness of Breath. [facility] albuterol 2.5 mg /3 mL (0.083 %) nebulizer solution 01-17 00:00: 00 Yes [id number] 2.5mg Inhale 3 mL every 4 (four) hours. May also nebulize one extra every 6 hours. [facility] benzonatate 200 mg capsule 01-17 00:00: 00 Yes [id number] 200mg Take 1 capsule by mouth 3 (three) times daily as needed for Cough. [facility] albuterol 90 mcg/actuati on inhaler 01-17 00:00: 00 Yes [id number] 2{puff} Inhale 2 Puffs every 4 (four) hours as needed for Wheezing or Shortness of Breath. [facility] albuterol 2.5 mg /3 mL (0.083 %) nebulizer solution 01-17 00:00: 00 Yes [id number] 2.5mg Inhale 3 mL every 4 (four) hours. May also nebulize one extra every 6 hours. [facility] benzonatate 200 mg capsule 01-17 00:00: 00 Yes [id number] 200mg Take 1 capsule by mouth 3 (three) times daily as needed for Cough. [facility] albuterol 90 mcg/actuati on inhaler 01-17 00:00: 00 Yes [id number] 2{puff} Inhale 2 Puffs every 4 (four) hours as needed for Wheezing or Shortness of Breath. [facility] albuterol 2.5 mg /3 mL (0.083 %) nebulizer solution 01-17 00:00: 00 Yes [id number] 2.5mg Inhale 3 mL every 4 (four) hours. May also nebulize one extra every 6 hours. [facility] benzonatate 200 mg capsule 01-17 00:00: 00 Yes [id number] 200mg Take 1 capsule by mouth 3 (three) times daily as needed for Cough. [facility] albuterol 90 mcg/actuati on inhaler 01-17 00:00: 00 Yes [id number] 2{puff} Inhale 2 Puffs every 4 (four) hours as needed for Wheezing or Shortness of Breath. [facility] albuterol 2.5 mg /3 mL (0.083 %) nebulizer solution 01-17 00:00: 00 Yes [id number] 2.5mg Inhale 3 mL every 4 (four) hours. May also nebulize one extra every 6 hours. [facility] benzonatate 200 mg capsule 01-17 00:00: 00 Yes [id number] 200mg Take 1 capsule by mouth 3 (three) times daily as needed for Cough. [facility] albuterol 2.5 mg /3 mL (0.083 %) nebulizer solution 01-17 00:00: 00 Yes [id number] 2.5mg Inhale 3 mL every 4 (four) hours. May also nebulize one extra every 6 hours. [facility] benzon[facility]ate 200 mg capsule 01-17 00:00: 00 Yes [id number] 200mg Take 1 capsule by mouth 3 (three) times daily as needed for Cough. [facility] albuterol 2.5 mg /3 mL (0.083 %) nebulizer solution 01-17 00:00: 00 Yes [id number] 2.5mg Inhale 3 mL every 4 (four) hours. May also nebulize one extra every 6 hours. [facility] benzonatate 200 mg capsule 01-17 00:00: 00 Yes [id number] 200mg Take 1 capsule by mouth 3 (three) times daily as needed for Cough. [facility] albuterol 2.5 mg /3 mL (0.083 %) nebulizer solution 01-17 00:00: 00 Yes [id number] 2.5mg Inhale 3 mL every 4 (four) hours. May also nebulize one extra every 6 hours. [facility] benzonatate 200 mg capsule 01-17 00:00: 00 Yes [id number] 200mg Take 1 capsule by mouth 3 (three) times daily as needed for Cough. [facility] albuterol 2.5 mg /3 mL (0.083 %) nebulizer solution 01-17 00:00: 00 Yes [id number] 2.5mg Inhale 3 mL every 4 (four) hours. May also nebulize one extra every 6 hours. [facility] albuterol 2.5 mg /3 mL (0.083 %) nebulizer solution 01-17 00:00: 00 Yes [id number] 2.5mg Inhale 3 mL every 4 (four) hours. May also nebulize one extra every 6 hours. [facility] albuterol 2.5 mg /3 mL (0.083 %) nebulizer solution 01-17 00:00: 00 Yes [id number] 2.5mg Inhale 3 mL every 4 (four) hours. May also nebulize one extra every 6 hours. [facility] albuterol 2.5 mg /3 mL (0.083 %) nebulizer solution 01-17 00:00: 00 Yes [id number] 2.5mg Inhale 3 mL every 4 (four) hours. May also nebulize one extra every 6 hours. [facility] albuterol 2.5 mg /3 mL (0.083 %) nebulizer solution 01-17 00:00: 00 Yes [id number] 2.5mg Inhale 3 mL every 4 (four) hours. May also nebulize one extra every 6 hours. [facility] albuterol 2.5 mg /3 mL (0.083 %) nebulizer solution 01-17 00:00: 00 Yes [id number] 2.5mg Inhale 3 mL every 4 (four) hours. May also nebulize one extra every 6 hours. [facility] albuterol 2.5 mg /3 mL (0.083 %) nebulizer solution 01-17 00:00: 00 03-03 00:00 :00 No [id number] 2.5mg Inhale 3 mL every 4 (four) hours. May also nebulize one extra every 6 hours. [facility] benzonatate 200 mg capsule 01-17 00:00: 00 02-17 00:00 :00 No [id number] 200mg Take 1 capsule by mouth 3 (three) times daily as needed for Cough. [facility] albuterol 90 mcg/actuati on inhaler 01-17 00:00: 00 02-04 00:00 :00 No [id number] 2{puff} Inhale 2 Puffs every 4 (four) hours as needed for Wheezing or Shortness of Breath. [facility] predniSONE 50 mg tablet 01-17 00:00: 00 01-19 00:00 :00 No [id number] 50mg Take 1 tablet by mouth in the morning. [facility] ipratropium 0.02 % nebulizer solution 01-17 00:00: 00 01-19 00:00 :00 No [id number] .5mg Inhale 2.5 mL every 6 (six) hours as needed for Wheezing, Shortness of Breath, Bronchospa sm or Chest tightness. [facility] potassium chloride (KCL-20 ORAL) 01-07 14:37: 58 Yes 1{tbl} Take 1 tablet by mouth in the morning and 1 tablet in the evening. [facility] potassium chloride (KCL-20 ORAL) 01-07 14:37: 58 Yes 1{tbl} Take 1 tablet by mouth in the morning and 1 tablet in the evening. [facility] potassium chloride (KCL-20 ORAL) 01-07 14:37: 58 Yes 1{tbl} Take 1 tablet by mouth in the morning and 1 tablet in the evening. [facility] potassium chloride (KCL-20 ORAL) 01-07 14:37: 58 Yes 1{tbl} Take 1 tablet by mouth in the morning and 1 tablet in the evening. [facility] busPIRone 10 mg tablet 01-07 14:36: 57 Yes 10mg Take 1 tablet by mouth in the morning and 1 tablet in the evening. [facility] rivaroxaban 15 mg tablet 01-07 14:36: 57 Yes 15mg Take 1 tablet by mouth in the morning. [facility] ASPIRIN ORAL 2022-0 01-07 14:36: 57 Yes 81mg Take 81 mg by mouth in the morning. tablet [facility] benazepriL 10 mg tablet 01-07 14:36: 57 Yes 10mg Take 1 tablet by mouth in the morning. [facility] busPIRone 10 mg tablet 01-07 14:36: 57 Yes 10mg Take 1 tablet by mouth in the morning and 1 tablet in the evening. [facility] rivaroxaban 15 mg tablet 01-07 14:36: 57 Yes 15mg Take 1 tablet by mouth in the morning. [facility] ASPIRIN ORAL 2022-0 01-07 14:36: 57 Yes 81mg Take 81 mg by mouth in the morning. tablet [facility] benazepriL 10 mg tablet 0 01-07 14:36: 57 Yes 10mg Take 1 tablet by mouth in the morning. [facility] busPIRone 10 mg tablet 0 01-07 14:36: 57 Yes 10mg Take 1 tablet by mouth in the morning and 1 tablet in the evening. [facility] rivaroxaban 15 mg tablet 2022-0 01-07 14:36: 57 Yes 15mg Take 1 tablet by mouth in the morning. [facility] ASPIRIN ORAL 3-0 01-07 14:36: 57 Yes 81mg Take 81 mg by mouth in the morning. tablet [facility] benazepriL 10 mg tablet 2022-0 01-07 14:36: 57 Yes 10mg Take 1 tablet by mouth in the morning. [facility] busPIRone 10 mg tablet 2022-0 01-07 14:36: 57 Yes 10mg Take 1 tablet by mouth in the morning and 1 tablet in the evening. [facility] rivaroxaban 15 mg tablet 2022-0 01-07 14:36: 57 Yes 15mg Take 1 tablet by mouth in the morning. [facility] ASPIRIN ORAL 2022-0 01-07 14:36: 57 Yes 81mg Take 81 mg by mouth in the morning. tablet [facility] benazepriL 10 mg tablet 2022-0 01-07 14:36: 57 Yes 10mg Take 1 tablet by mouth in the morning. [facility] donepeziL 5 mg tablet 2022-0 01-07 00:00: 00 Yes 5mg Take 1 tablet by mouth in the morning. [facility] memantine 5 mg tablet 2022-0 01-07 00:00: 00 Yes 5mg Take 1 tablet by mouth in the morning. [facility] donepeziL 5 mg tablet 3-0 01-07 00:00: 00 Yes 5mg Take 1 tablet by mouth in the morning. [facility] memantine 5 mg tablet 3-0 01-07 00:00: 00 Yes 5mg Take 1 tablet by mouth in the morning. [facility] donepeziL 5 mg tablet 3-0 01-07 00:00: 00 Yes 5mg Take 1 tablet by mouth in the morning. [facility] memantine 5 mg tablet 3-0 01-07 00:00: 00 Yes 5mg Take 1 tablet by mouth in the morning. [facility] donepeziL 5 mg tablet 2023-0 4-21 00:00: 00 Yes 5mg Take 1 tablet by mouth in the morning. [facility] memantine 5 mg tablet 2023-0 4-21 00:00: 00 Yes 5mg Take 1 tablet by mouth in the morning. [facility] donepeziL 5 mg tablet 2023-0 4-21 00:00: 00 Yes 5mg Take 1 tablet by mouth in the morning. [facility] memantine 5 mg tablet 2023-0 4-21 00:00: 00 Yes 5mg Take 1 tablet by mouth in the morning. [facility] donepeziL 5 mg tablet 2023-0 4-21 00:00: 00 Yes 5mg Take 1 tablet by mouth in the morning. [facility] memantine 5 mg tablet 2023-0 4-21 00:00: 00 Yes 5mg Take 1 tablet by mouth in the morning. [facility] donepeziL 5 mg tablet 2023-0 4-21 00:00: 00 Yes 5mg Take 1 tablet by mouth in the morning. [facility] memantine 5 mg tablet 3-0 4-21 00:00: 00 Yes 5mg Take 1 tablet by mouth in the morning. [facility] donepeziL 5 mg tablet 2023-0 4-21 00:00: 00 Yes 5mg Take 1 tablet by mouth in the morning. [facility] memantine 5 mg tablet 2023-0 4-21 00:00: 00 Yes 5mg Take 1 tablet by mouth in the morning. [facility] donepeziL 5 mg tablet 2023-0 4-21 00:00: 00 Yes 5mg Take 1 tablet by mouth in the morning. [facility] memantine 5 mg tablet 2023-0 4-21 00:00: 00 Yes 5mg Take 1 tablet by mouth in the morning. [facility] donepeziL 5 mg tablet 2023-0 4-21 00:00: 00 Yes 5mg Take 1 tablet by mouth in the morning. [facility] memantine 5 mg tablet 2023-0 4-21 00:00: 00 Yes 5mg Take 1 tablet by mouth in the morning. [facility] donepeziL 5 mg tablet 3-0 4-21 00:00: 00 Yes 5mg Take 1 tablet by mouth in the morning. [facility] memantine 5 mg tablet 2023-0 4-21 00:00: 00 Yes 5mg Take 1 tablet by mouth in the morning. [facility] donepeziL 5 mg tablet 2023-0 4-21 00:00: 00 Yes 5mg Take 1 tablet by mouth in the morning. [facility] memantine 5 mg tablet 2023-0 4-21 00:00: 00 Yes 5mg Take 1 tablet by mouth in the morning. [facility] donepeziL 5 mg tablet 3-0 4-21 00:00: 00 Yes 5mg Take 1 tablet by mouth in the morning. [facility] memantine 5 mg tablet 3-0 4-21 00:00: 00 Yes 5mg Take 1 tablet by mouth in the morning. [facility] donepeziL 5 mg tablet 3-0 4-21 00:00: 00 Yes 5mg Take 1 tablet by mouth in the morning. [facility] memantine 5 mg tablet 3-0 4-21 00:00: 00 Yes 5mg Take 1 tablet by mouth in the morning. [facility] donepeziL 5 mg tablet 2023-0 4-21 00:00: 00 Yes 5mg Take 1 tablet by mouth in the morning. [facility] memantine 5 mg tablet 3-0 4-21 00:00: 00 Yes 5mg Take 1 tablet by mouth in the morning. [facility] donepeziL 5 mg tablet 2023-0 4-21 00:00: 00 Yes 5mg Take 1 tablet by mouth in the morning. [facility] memantine 5 mg tablet 2023-0 4-21 00:00: 00 Yes 5mg Take 1 tablet by mouth in the morning. [facility] donepeziL 5 mg tablet 2023-0 4-21 00:00: 00 Yes 5mg Take 1 tablet by mouth in the morning. [facility] memantine 5 mg tablet 2023-0 4-21 00:00: 00 Yes 5mg Take 1 tablet by mouth in the morning. [facility] donepeziL 5 mg tablet 2023-0 4-21 00:00: 00 Yes 5mg Take 1 tablet by mouth in the morning. [facility] memantine 5 mg tablet 2023-0 4-21 00:00: 00 Yes 5mg Take 1 tablet by mouth in the morning. [facility] donepeziL 5 mg tablet 2023-0 4-21 00:00: 00 Yes 5mg Take 1 tablet by mouth in the morning. [facility] memantine 5 mg tablet 2023-0 4-21 00:00: 00 Yes 5mg Take 1 tablet by mouth in the morning. [facility] donepeziL 5 mg tablet 2023-0 4-21 00:00: 00 Yes 5mg Take 1 tablet by mouth in the morning. [facility] memantine 5 mg tablet 2023-0 4-21 00:00: 00 Yes 5mg Take 1 tablet by mouth in the morning. [facility] donepeziL 5 mg tablet 2023-0 4-21 00:00: 00 Yes 5mg Take 1 tablet by mouth in the morning. [facility] memantine 5 mg tablet 2023-0 4-21 00:00: 00 Yes 5mg Take 1 tablet by mouth in the morning. [facility] donepeziL 5 mg tablet 2023-0 4-21 00:00: 00 Yes 5mg Take 1 tablet by mouth in the morning. [facility] memantine 5 mg tablet 2023-0 4-21 00:00: 00 Yes 5mg Take 1 tablet by mouth in the morning. [facility] donepeziL 5 mg tablet 2023-0 4-21 00:00: 00 Yes 5mg Take 1 tablet by mouth in the morning. [facility] memantine 5 mg tablet 2023-0 4-21 00:00: 00 Yes 5mg Take 1 tablet by mouth in the morning. [facility] donepeziL 5 mg tablet 2023-0 4-21 00:00: 00 Yes 5mg Take 1 tablet by mouth in the morning. [facility] memantine 5 mg tablet 3-0 4-21 00:00: 00 Yes 5mg Take 1 tablet by mouth in the morning. [facility] donepeziL 5 mg tablet 3-0 4-21 00:00: 00 Yes 5mg Take 1 tablet by mouth in the morning. [facility] memantine 5 mg tablet 3-0 4-21 00:00: 00 Yes 5mg Take 1 tablet by mouth in the morning. [facility] donepeziL 5 mg tablet 3-0 4-21 00:00: 00 Yes 5mg Take 1 tablet by mouth in the morning. [facility] memantine 5 mg tablet 2022-0 4-21 00:00: 00 Yes 5mg Take 1 tablet by mouth in the morning. [facility] donepeziL 5 mg tablet 3-0 4-21 00:00: 00 Yes 5mg Take 1 tablet by mouth in the morning. [facility] memantine 5 mg tablet 3-0 4-21 00:00: 00 Yes 5mg Take 1 tablet by mouth in the morning. [facility] donepeziL 5 mg tablet 2022-0 4-21 00:00: 00 03-01 00:00 :00 No 5mg Take 1 tablet by mouth in the morning. [facility] memantine 5 mg tablet 3-0 4-21 00:00: 00 03-01 00:00 :00 No 5mg Take 1 tablet by mouth in the morning. [facility] donepeziL 5 mg tablet 3-0 4-21 00:00: 00 03-01 00:00 :00 No 5mg Take 1 tablet by mouth in the morning. [facility] memantine 5 mg tablet 2022-0 4-21 00:00: 00 03-01 00:00 :00 No 5mg Take 1 tablet by mouth in the morning. [facility] tamsulosin 0.4 mg 24 hr capsule 2022-0 3-27 00:00: 00 -27 04:59 :00 No [id number] .4mg Take 1 capsule by mouth in the morning for 30 days. [facility] tamsulosin 0.4 mg 24 hr capsule 12-13 00:00: 00 01-13 04:59 :00 No [id number] .4mg Take 1 capsule by mouth in the morning for 30 days. [facility] tamsulosin 0.4 mg 24 hr capsule 12-13 00:00: 00 01-13 04:59 :00 No [id number] .4mg Take 1 capsule by mouth in the morning for 30 days. [facility] tamsulosin 0.4 mg 24 hr capsule 12-13 00:00: 00 01-13 04:59 :00 No [id number] .4mg Take 1 capsule by mouth in the morning for 30 days. [facility] tamsulosin 0.4 mg 24 hr capsule 12-13 00:00: 00 01-13 04:59 :00 No [id number] .4mg Take 1 capsule by mouth in the morning for 30 days. [facility] tamsulosin 0.4 mg 24 hr capsule 12-13 00:00: 00 01-13 04:59 :00 No [id number] .4mg Take 1 capsule by mouth in the morning for 30 days. [facility] donepeziL (ARICEPT) tablet 5 mg 12-12 17:30: 00 Yes 5mg 5 mg, Oral, DAILY, First dose on 12/12/22 at 1230, Until Discontinu ed, Routine [facility] memantine (NAMENDA) tablet 5 mg 12-12 17:30: 00 Yes 5mg 5 mg, Oral, DAILY, First dose on 12/12/22 at 1230, Until Discontinu ed, Routine
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 [facility] rivaroxaban (XARELTO) 15 mg tablet 12-12 14:37: 13 Yes 15mg Take 1 tablet by mouth in the morning. [facility] aspirin 81 mg chewable tablet 12-12 14:37: 13 Yes 81mg Take 81 mg by mouth in the morning. tablet [facility] busPIRone 10 mg tablet 12-12 14:37: 13 Yes 10mg Take 1 tablet by mouth in the morning and 1 tablet in the evening. [facility] rivaroxaban (XARELTO) 15 mg tablet 12-12 14:37: 13 Yes 15mg Take 1 tablet by mouth in the morning. [facility] busPIRone 10 mg tablet 12-12 14:37: 13 Yes 10mg Take 1 tablet by mouth in the morning and 1 tablet in the evening. [facility] rivaroxaban (XARELTO) 15 mg tablet 12-12 14:37: 13 Yes 15mg Take 1 tablet by mouth in the morning. [facility] aspirin 81 mg chewable tablet 12-12 14:37: 13 Yes 81mg Take 81 mg by mouth in the morning. tablet [facility] busPIRone 10 mg tablet 12-12 14:37: 13 Yes 10mg Take 1 tablet by mouth in the morning and 1 tablet in the evening. [facility] rivaroxaban (XARELTO) 15 mg tablet 12-12 14:37: 13 Yes 15mg Take 1 tablet by mouth in the morning. [facility] aspirin 81 mg chewable tablet 12-12 14:37: 13 Yes 81mg Take 81 mg by mouth in the morning. tablet [facility] tamsulosin (FLOMAX) capsule 0.4 mg 12-12 14:00: 00 Yes .4mg 0.4 mg, Oral, DAILY, First dose on 12/12/22 at 0900, Until Discontinu ed, Routine [facility] aspirin EC tablet 81 mg 12-12 14:00: 00 Yes 81mg 81 mg, Oral, DAILY, First dose on 12/12/22 at 0900, Until Discontinu ed, Routine [facility] methylpredn isolone sod succ (SOLU-MEDRO L) injection 40 mg 12-12 14:00: 00 Yes 40mg 40 mg, Intravenou s, DAILY, First dose (after last modificati on) on 12/12/22 at 0900, Until Discontinu ed, Routine [facility] carvediloL 25 mg tablet 12-12 11:47: 13 12-12 00:00 :00 No 25mg Take 1 tablet by mouth in the morning and 1 tablet in the evening. Take with meals. [facility] busPIRone 30 mg tablet 12-12 11:47: 13 12-12 00:00 :00 No 30mg Take 1 tablet by mouth in the morning and 1 tablet in the evening. [facility] KCL 20 mEq tablet 12-12 11:47: 12-12 00:00 :00 No Take by mouth 2 (two) times daily. [facility] benazepriL 10 mg tablet 12-12 11:47: 12-12 00:00 :00 No 10mg Take 1 tablet by mouth in the morning. [facility] hydroCHLORO thiazide 25 mg tablet 12-12 11:47: 12-12 00:00 :00 No 25mg Take 1 tablet by mouth in the morning. [facility] melatonin (MELATIN) tablet 6 mg 12-12 02:00: 00 Yes 6mg 6 mg, Oral, QHS, First dose on 12/11/22 at 2100, Until Discontinu ed, [facility] tablet 40 mg 12-12 02:00: 00 Yes 40mg 40 mg, Oral, QHS, First dose on 12/11/22 at 2100, Until Discontinu ed, Routine [facility] carvediloL 3.125 mg tablet 12-12 00:00: 00 01-12 04:59 :00 No [id number] 3.125mg Take 1 tablet by mouth in the morning and 1 tablet in the evening. Take with meals. Do all this for 30 days. [facility] atorvastati n 40 mg tablet 0 12-12 00:00: 00 01-12 04:59 :00 No [id number] 40mg Take 1 tablet by mouth at bedtime for 30 days. [facility] donepeziL 5 mg tablet 12-12 00:00: 00 01-12 04:59 :00 No [id number] 5mg Take 1 tablet by mouth in the morning for 30 days. [facility] memantine 5 mg tablet 12-12 00:00: 00 01-12 04:59 :00 No [id number] 5mg Take 1 tablet by mouth in the morning for 30 days. [facility] carvediloL 3.125 mg tablet 12-12 00:00: 00 01-12 04:59 :00 No [id number] 3.125mg Take 1 tablet by mouth in the morning and 1 tablet in the evening. Take with meals. Do all this for 30 days. [facility] atorvastati n 40 mg tablet 12-12 00:00: 00 01-12 04:59 :00 No [id number] 40mg Take 1 tablet by mouth at bedtime for 30 days. [facility] donepeziL 5 mg tablet 0 12-12 00:00: 00 01-12 04:59 :00 No [id number] 5mg Take 1 tablet by mouth in the morning for 30 days. [facility] memantine 5 mg tablet 12-12 00:00: 00 01-12 04:59 :00 No [id number] 5mg Take 1 tablet by mouth in the morning for 30 days. [facility] carvediloL 3.125 mg tablet 12-12 00:00: 00 01-12 04:59 :00 No [id number] 3.125mg Take 1 tablet by mouth in the morning and 1 tablet in the evening. Take with meals. Do all this for 30 days. [facility] atorvastati n 40 mg tablet 12-12 00:00: 00 01-12 04:59 :00 No [id number] 40mg Take 1 tablet by mouth at bedtime for 30 days. [facility] donepeziL 5 mg tablet 12-12 00:00: 00 01-12 04:59 :00 No [id number] 5mg Take 1 tablet by mouth in the morning for 30 days. [facility] memantine 5 mg tablet 12-12 00:00: 00 01-12 04:59 :00 No [id number] 5mg Take 1 tablet by mouth in the morning for 30 days. [facility] carvediloL 3.125 mg tablet 12-12 00:00: 00 01-12 04:59 :00 No [id number] 3.125mg Take 1 tablet by mouth in the morning and 1 tablet in the evening. Take with meals. Do all this for 30 days. [facility] atorvastati n 40 mg tablet 12-12 00:00: 00 01-12 04:59 :00 No [id number] 40mg Take 1 tablet by mouth at bedtime for 30 days. [facility] carvediloL 3.125 mg tablet 12-12 00:00: 00 01-12 04:59 :00 No [id number] 3.125mg Take 1 tablet by mouth in the morning and 1 tablet in the evening. Take with meals. Do all this for 30 days. [facility] atorvastati n 40 mg tablet 12-12 00:00: 00 01-12 04:59 :00 No [id number] 40mg Take 1 tablet by mouth at bedtime for 30 days. [facility] carvediloL 3.125 mg tablet 12-12 00:00: 00 01-12 04:59 :00 No [id number] 3.125mg Take 1 tablet by mouth in the morning and 1 tablet in the evening. Take with meals. Do all this for 30 days. [facility] atorvastati n 40 mg tablet 12-12 00:00: 00 01-12 04:59 :00 No [id number] 40mg Take 1 tablet by mouth at bedtime for 30 days. [facility] donepeziL 5 mg tablet 12-12 00:00: 00 01-07 00:00 :00 No [id number] 5mg Take 1 tablet by mouth in the morning for 30 days. [facility] memantine 5 mg tablet 12-12 00:00: 00 01-07 00:00 :00 No [id number] 5mg Take 1 tablet by mouth in the morning for 30 days. [facility] donepeziL 5 mg tablet 12-12 00:00: 00 01-07 00:00 :00 No [id number] 5mg Take 1 tablet by mouth in the morning for 30 days. [facility] memantine 5 mg tablet 12-12 00:00: 00 01-07 00:00 :00 No [id number] 5mg Take 1 tablet by mouth in the morning for 30 days. [facility] levalbutero l (XOPENEX) nebulizer solution 1.25 mg 12-11 17:00: 00 Yes 1.25mg 1.25 mg, Inhalation , QID, First dose (after last modificati on) on [facility] 12/11/22 at 1200, Until Discontinu ed, Routine [facility] rivaroxaban (XARELTO) tablet 15 mg 12-11 14:00: 00 Yes 15mg 15 mg, Oral, DAILY, First dose on [facility] 12/11/22 at 0900, Until Discontinu ed, Routine [facility] nicotine (NICODERM) 21 mg/24 hr patch 1 Patch 12-11 13:45: 00 Yes 1{patch } 1 Patch, Topical, Administer over 24 Hours, Q24H, First dose on [facility] 12/11/22 at 0845, Until Discontinu ed, Routine [facility] ipratropium (ATROVENT) 0.02 % nebulizer solution 0.5 mg 12-11 13:00: 00 Yes .5mg 0.5 mg, Inhalation , QID, First dose on 12/11/22 at 0800, Until Discontinu ed [facility] carvediloL (COREG) tablet 3.125 mg 12-11 13:00: 00 Yes 3.125mg 3.125 mg, Oral, BID MEALS, First dose on 12/11/22 at 0800, Until Discontinu ed, Routine [facility] busPIRone (BUSPAR) tablet 10 mg 12-11 13:00: 00 Yes 10mg 10 mg, Oral, BID, First dose on Tue12/11/22 at 0800, Until Discontinu ed, Routine [facility] methylpredn isolone sod succ (SOLU-MEDRO L) injection 125 mg 12-11 05:00: 00 12-11 12:35 :32 No 125mg 125 mg, Intravenou s, Q6H, First dose on Tue12/11/22 at 0000, Until Discontinu ed, Routine [facility] NaCl 0.9% (NS) IV infusion 1,000 mL 12-11 03:30: 00 12-11 14:48 :38 No 1000mL at 100 mL/hr, IV Infusion, CONTINUOUS , Starting on Tue12/10/22 at 2230, Until Tue12/11/22 at 0948, Routine [facility] albuterol (VENTOLIN) inhaler 2 Puff 12-11 03:17: 09 Yes 2{puff} 2 Puff, Inhalation , Q4HPRN, Starting on Tue12/10/22 at 2217, Until Discontinu ed, Routine, Wheezing, Shortness of Breath [facility] ondansetron (ZOFRAN (PF)) injection 4 mg 12-11 03:05: 14 Yes 4mg 4 mg, Slow IV Push, Q6HPRN, Starting on Tue12/10/22 at 2205, Until Discontinu ed, Routine, Nausea and Vomiting (N/V) [facility] HYDROcodone -acetaminop hen (NORCO) 10-325 mg tablet 1 tablet 12-11 03:05: 00 Yes 1{tbl} 1 tablet, Oral, Q6HPRN, Starting on Tue12/10/22 at 2205, Until Discontinu ed, Routine, Pain (scale 7-10) [facility] HYDROcodone -acetaminop hen (NORCO 5) 5-325 mg tablet 1 tablet 12-11 03:04: 56 12-13 03:03 :56 No 1{tbl} 1 tablet, Oral, Q6HPRN, Starting on Tue12/10/22 at 2204, Until Tue12/12/22 at 220, Routine, Pain (scale 4-6) [facility] acetaminoph en (TYLENOL) tablet 650 mg 12-11 03:04: 50 Yes 650mg 650 mg, Oral, Q6HPRN, Starting on Tue12/10/22 at 2204, Until Discontinu ed, Routine, Pain (scale 1-3) [facility] levalbutero l (XOPENEX) nebulizer solution 1.25 mg 12-11 01:00: 00 12-11 15:57 :00 No 1.25mg 1.25 mg, Inhalation , TID, First dose on Tue12/10/22 at 2000, Until Discontinu ed, Routine [facility] NaCl 0.9% (NS) bolus infusion 1,000 mL 12-11 00:15: 00 12-11 03:18 :00 No 1000mL at 999 mL/hr, 1,000 mL, IV Infusion, ONCE, 1 dose, On Tue12/10/22 at 1915, STAT [facility] ipratropium (ATROVENT) 0.02 % nebulizer solution 0.5 mg 12-10 23:48: 58 Yes .5mg 0.5 mg, Inhalation , Q4HPRN, Starting on Tue12/10/22 at 1848, Until Discontinu ed, Routine, Wheezing, Shortness of Breath [facility] NaCl 0.9% (NS) bolus infusion 500 mL 12-04 16:15: 00 12-04 15:41 :58 No 500mL at 999 mL/hr, 500 mL, IV Piggyback, ONCE, 1 dose, On 12/04/22 at 1115, STAT [facility] carvediloL 3.125 mg tablet 12-04 12:44: 03 Yes 3.125mg Take 1 tablet by mouth in the morning and 1 tablet in the evening. Take with meals. [facility] busPIRone 10 mg tablet 12-04 12:44: 03 Yes 10mg Take 1 tablet by mouth in the morning and 1 tablet in the evening. [facility] busPIRone 30 mg tablet 12-04 12:44: 03 Yes 30mg Take 1 tablet by mouth in the morning and 1 tablet in the evening. [facility] KCL 20 mEq tablet 12-04 12:44: 03 Yes Take by mouth 2 (two) times daily. [facility] benazepriL 10 mg tablet 12-04 12:44: 03 Yes 10mg Take 1 tablet by mouth in the morning. [facility] rivaroxaban (XARELTO) 15 mg tablet 12-04 12:44: 03 Yes 15mg Take 1 tablet by mouth in the morning. [facility] carvediloL 3.125 mg tablet 12-04 12:44: 03 Yes 3.125mg Take 1 tablet by mouth in the morning and 1 tablet in the evening. Take with meals. [facility] busPIRone 10 mg tablet 12-04 12:44: 03 Yes 10mg Take 1 tablet by mouth in the morning and 1 tablet in the evening. [facility] busPIRone 30 mg tablet 12-04 12:44: 03 Yes 30mg Take 1 tablet by mouth in the morning and 1 tablet in the evening. [facility] KCL 20 mEq tablet 12-04 12:44: 03 Yes Take by mouth 2 (two) times daily. [facility] benazepriL 10 mg tablet 3-0 3-18 12:44: 03 Yes 10mg Take 1 tablet by mouth in the morning. [facility] rivaroxaban (XARELTO) 15 mg tablet 3-0 3-18 12:44: 03 Yes 15mg Take 1 tablet by mouth in the morning. [facility] carvediloL 3.125 mg tablet 3-0 3-18 12:44: 03 Yes 3.125mg Take 1 tablet by mouth in the morning and 1 tablet in the evening. Take with meals. [facility] busPIRone 10 mg tablet 3-0 3-18 12:44: 03 Yes 10mg Take 1 tablet by mouth in the morning and 1 tablet in the evening. [facility] busPIRone 30 mg tablet 3-0 3-18 12:44: 03 Yes 30mg Take 1 tablet by mouth in the morning and 1 tablet in the evening. [facility] KCL 20 mEq tablet 3-0 3-18 12:44: 03 Yes Take by mouth 2 (two) times daily. [facility] benazepriL 10 mg tablet 3-0 -18 12:44: 03 Yes 10mg Take 1 tablet by mouth in the morning. [facility] rivaroxaban (XARELTO) 15 mg tablet 3-0 3-18 12:44: 03 Yes 15mg Take 1 tablet by mouth in the morning. [facility] carvediloL 3.125 mg tablet 3-0 3-18 12:44: 03 Yes 3.125mg Take 1 tablet by mouth in the morning and 1 tablet in the evening. Take with meals. [facility] busPIRone 10 mg tablet 2023-0 3-18 12:44: 03 Yes 10mg Take 1 tablet by mouth in the morning and 1 tablet in the evening. [facility] busPIRone 30 mg tablet 2023-0 3-18 12:44: 03 Yes 30mg Take 1 tablet by mouth in the morning and 1 tablet in the evening. [facility] KCL 20 mEq tablet 3-0 3-18 12:44: 03 Yes Take by mouth 2 (two) times daily. [facility] benazepriL 10 mg tablet 12-04 12:44: 03 Yes 10mg Take 1 tablet by mouth in the morning. [facility] rivaroxaban (XARELTO) 15 mg tablet 12-04 12:44: 03 Yes 15mg Take 1 tablet by mouth in the morning. [facility] albuterol 90 mcg/actuati on inhaler 12-04 00:00: 00 Yes [id number] 2{puff} Inhale 2 Puffs every 6 (six) hours as needed for Wheezing or Shortness of Breath. [facility] albuterol 90 mcg/actuati on inhaler 12-04 00:00: 00 Yes [id number] 2{puff} Inhale 2 Puffs every 6 (six) hours as needed for Wheezing or Shortness of Breath. [facility] albuterol 90 mcg/actuati on inhaler 12-04 00:00: 00 Yes [id number] 2{puff} Inhale 2 Puffs every 6 (six) hours as needed for Wheezing or Shortness of Breath. [facility] albuterol 90 mcg/actuati on inhaler 12-04 00:00: 00 Yes [id number] 2{puff} Inhale 2 Puffs every 6 (six) hours as needed for Wheezing or Shortness of Breath. [facility] albuterol 90 mcg/actuati on inhaler 12-04 00:00: 00 Yes [id number] 2{puff} Inhale 2 Puffs every 6 (six) hours as needed for Wheezing or Shortness of Breath. [facility] albuterol 90 mcg/actuati on inhaler 12-04 00:00: 00 Yes [id number] 2{puff} Inhale 2 Puffs every 6 (six) hours as needed for Wheezing or Shortness of Breath. [facility] albuterol 90 mcg/actuati on inhaler 12-04 00:00: 00 Yes [id number] 2{puff} Inhale 2 Puffs every 6 (six) hours as needed for Wheezing or Shortness of Breath. [facility] albuterol 90 mcg/actuati on inhaler 18 00:00: 00 Yes [id number] 2{puff} Inhale 2 Puffs every 6 (six) hours as needed for Wheezing or Shortness of Breath. [facility] albuterol 90 mcg/actuati on inhaler 18 00:00: 00 Yes [id number] 2{puff} Inhale 2 Puffs every 6 (six) hours as needed for Wheezing or Shortness of Breath. [facility] albuterol 90 mcg/actuati on inhaler 12-04 00:00: 00 Yes [id number] 2{puff} Inhale 2 Puffs every 6 (six) hours as needed for Wheezing or Shortness of Breath. [facility] albuterol 90 mcg/actuati on inhaler 12-04 00:00: 00 Yes [id number] 2{puff} Inhale 2 Puffs every 6 (six) hours as needed for Wheezing or Shortness of Breath. [facility] albuterol 90 mcg/actuati on inhaler 12-04 00:00: 00 Yes [id number] 2{puff} Inhale 2 Puffs every 6 (six) hours as needed for Wheezing or Shortness of Breath. [facility] albuterol 90 mcg/actuati on inhaler 18 00:00: 00 01-19 00:00 :00 No [id number] 2{puff} Inhale 2 Puffs every 6 (six) hours as needed for Wheezing or Shortness of Breath. [facility] tiotropium 18 mcg inhalation 318 00:00: 00 01-04 04:59 :00 No [id number] 18ug Inhale 1 capsule in the morning for 30 days. [facility] tiotropium 18 mcg inhalation 318 00:00: 00 01-04 04:59 :00 No [id number] 18ug Inhale 1 capsule in the morning for 30 days. [facility] tiotropium 18 mcg inhalation 3-0 3-18 00:00: 00 01-04 04:59 :00 No [id number] 18ug Inhale 1 capsule in the morning for 30 days. [facility] tiotropium 18 mcg inhalation 3-0 3-18 00:00: 00 01-04 04:59 :00 No [id number] 18ug Inhale 1 capsule in the morning for 30 days. [facility] tiotropium 18 mcg inhalation 3-0 3-18 00:00: 00 01-04 04:59 :00 No [id number] 18ug Inhale 1 capsule in the morning for 30 days. [facility] tiotropium 18 mcg inhalation 3-0 3-18 00:00: 00 01-04 04:59 :00 No [id number] 18ug Inhale 1 capsule in the morning for 30 days. [facility] tiotropium 18 mcg inhalation 2022-0 3-18 00:00: 00 01-04 04:59 :00 No [id number] 18ug Inhale 1 capsule in the morning for 30 days. [facility] tiotropium 18 mcg inhalation 3-0 3-18 00:00: 00 01-04 04:59 :00 No [id number] 18ug Inhale 1 capsule in the morning for 30 days. [facility] doxycycline hyclate 100 mg capsule 2022-0 3-18 00:00: 00 12-10 04:59 :00 No [id number] 100mg Take 1 capsule by mouth every 12 (twelve) hours for 5 days. [facility] predniSONE 20 mg tablet 3-0 3-18 00:00: 00 12-10 04:59 :00 No [id number] 40mg Take 2 tablets by mouth in the morning for 5 days. [facility] doxycycline hyclate 100 mg capsule 3-0 3-18 00:00: 00 12-10 04:59 :00 No [id number] 100mg Take 1 capsule by mouth every 12 (twelve) hours for 5 days. [facility] predniSONE 20 mg tablet 12-04 00:00: 00 12-10 04:59 :00 No [id number] 40mg Take 2 tablets by mouth in the morning for 5 days. [facility] rivaroxaban (XARELTO) tablet 15 mg 12-03 17:15: 00 Yes 15mg 15 mg, Oral, DAILY, First dose (after last modificati on) on Tue12/03/22 at 1215, Until Discontinu ed, Routine [facility] enoxaparin (LOVENOX) injection 40 mg 12-02 22:00: 00 12-03 16:06 :59 No 40mg 40 mg, Subcutaneo us, DAILY, First dose on Tue12/02/22 at 1700, Until Discontinu ed, Routine [facility] methylPREDN ISolone sod succ (SOLU-MEDRO L (PF)) injection 40 mg 12-02 19:00: 00 Yes 40mg 40 mg, Intravenou s, Q8H, First dose on Tue12/02/22 at 1400, Until Discontinu ed, 1 mL [facility] codeine-gua ifenesin (ROBITUSSIN AC) 10-100 mg/5 mL oral solution 5 mL 12-02 16:25: 07 Yes 5mL 5 mL, Oral, Q6HPRN, Starting on Tue12/02/22 at 1125, Until Discontinu ed, Routine, Cough [facility] levalbutero l (XOPENEX) nebulizer solution 1.25 mg 12-02 13:00: 00 Yes 1.25mg 1.25 mg, Inhalation , Q4H, First dose on Tue12/02/22 at 0800, Until Discontinu ed, Routine [facility] ipratropium (ATROVENT) 0.02 % nebulizer solution 0.5 mg 12-02 13:00: 00 Yes .5mg 0.5 mg, Inhalation , Q4H, First dose on Tue12/02/22 at 0800, Until Discontinu ed, Routine [facility] doxycycline hyclate (Vibramycin ) capsule 100 mg 12-02 11:45: 00 12-07 11:44 :00 No 100mg 100 mg, Oral, Q12H ABX, 10 doses, First dose on [place] 12/02/22 at 0645, Last dose on Tue12/06/22 at 1845, MICHAEL
Re ason for Anti-Infec tive: Empiric Therapy for Suspected Infection< br>Empiric Therapy Site: Respirator y
Durat ion of therapy: 5 days [facility] NaCl 0.9% (NS) IV infusion 1,000 mL 12-02 11:45: 00 12-02 14:24 :54 No 1000mL at 75 mL/hr, IV Infusion, CONTINUOUS , Starting on Tue12/02/22 at 0645, Until Tue12/02/22 at 0924, Routine [facility] famotidine (PEPCID AC) tablet 20 mg 12-02 11:30: 03 Yes 20mg 20 mg, Oral, BIDPRN, Starting on Tue12/02/22 at 0630, Until Discontinu ed, Routine, Indigestio n, Heartburn [facility] ondansetron (ZOFRAN (PF)) injection 4 mg 12-02 11:30: 03 Yes 4mg 4 mg, Slow IV Push, Q6HPRN, Starting on Tue12/02/22 at 0630, Until Discontinu ed, Routine, Nausea and Vomiting (N/V) [facility] bisacodyL (DULCOLAX) tablet 10 mg 12-02 11:30: 03 Yes 10mg 10 mg, Oral, QDAILYPRN, Starting on Tue12/02/22 at 0630, Until Discontinu ed, Routine, Constipati on [facility] acetaminoph en (TYLENOL) tablet 650 mg 12-02 11:30: 03 Yes 650mg 650 mg, Oral, Q6HPRN, Starting on Tue12/02/22 at 0630, Until Discontinu ed, Routine, Pain (scale 1-3) [facility] methylpredn isolone sod succ (SOLU-MEDRO L) injection 125 mg 12-02 06:15: 00 12-02 05:27 :00 No 125mg 125 mg, Intravenou s, ONCE, 1 dose, On Tue12/02/22 at 0115, 2 mL [facility] ipratropium -albuteroL (DUONEB) 0.5 mg-3 mg(2.5 mg base)/3 mL nebulizer solution 6 mL 12-02 06:15: 00 12-02 05:33 :00 No 6mL 6 mL, Inhalation , ONCE, 1 dose, On [place] 12/02/22 at 0115, Routine [facility] levalbutero l (XOPENEX) nebulizer solution 0.63 mg 12-01 13:15: 00 12-01 12:38 :00 No .63mg 0.63 mg, Inhalation , ONCE, 1 dose, On Tue12/01/22 at 0815, Routine [facility] ipratropium (ATROVENT) 0.02 % nebulizer solution 0.5 mg 12-01 12:30: 00 12-01 12:38 :00 No .5mg 0.5 mg, Inhalation , ONCE, 1 dose, On Tue12/01/22 at 0730, [facility] levalbutero l (XOPENEX) nebulizer solution 1.25 mg 12-01 11:15: 00 12-01 10:38 :00 No 1.25mg 1.25 mg, Inhalation , ONCE, 1 dose, On Tue12/01/22 at 0615, Routine [facility] ipratropium (ATROVENT) 0.02 % nebulizer solution 0.5 mg 12-01 10:30: 00 12-01 10:38 :00 No .5mg 0.5 mg, Inhalation , ONCE, 1 dose, On Tue12/01/22 at 0530, [facility] methylPREDN ISolone sod succ (SOLU-MEDRO L (PF)) injection 40 mg 12-01 10:30: 00 12-01 10:35 :00 No 40mg 40 mg, Intravenou s, ONCE, 1 dose, On Tue12/01/22 at 0530, MICHAEL [facility] Nebulizer & Compressor For Neb Kami 0 15 00:00: 00 Yes [id number] Use as directed [facility] albuterol 90 mcg/actuati on inhaler 0 12-01 00:00: 00 Yes [id number] 2{puff} Inhale 2 Puffs every 4 (four) hours as needed for Wheezing or Shortness of Breath. [facility] Nebulizer & Compressor For Neb Kami 0 12-01 00:00: 00 Yes [id number] Use as directed [facility] [place] albuterol 90 mcg/actuati on inhaler 0 12-01 00:00: 00 Yes [id number] 2{puff} Inhale 2 Puffs every 4 (four) hours as needed for Wheezing or Shortness of Breath. [facility] Nebulizer & Compressor For Neb Kami 0 12-01 00:00: 00 Yes [id number] Use as directed [facility] albuterol 90 mcg/actuati on inhaler 0 12-01 00:00: 00 Yes [id number] 2{puff} Inhale 2 Puffs every 4 (four) hours as needed for Wheezing or Shortness of Breath. [facility] Nebulizer & Compressor For Neb Kami 0 15 00:00: 00 Yes [id number] Use as directed [facility] Nebulizer & Compressor For Neb Kami 0 15 00:00: 00 Yes [id number] Use as directed [facility] Nebulizer & Compressor For Neb Kami 0 15 00:00: 00 Yes [id number] Use as directed [facility] Nebulizer & Compressor For Neb Kami 0 315 00:00: 00 Yes [id number] Use as directed [facility] Nebulizer & Compressor For Neb Kami 2022-0 3-15 00:00: 00 Yes [id number] Use as directed [facility] Nebulizer & Compressor For Neb Kami 2022-0 3-15 00:00: 00 Yes [id number] Use as directed [facility] Nebulizer & Compressor For Neb Kami 2022-0 3-15 00:00: 00 Yes [id number] Use as directed [facility] Nebulizer & Compressor For Neb Kami 2022-0 3-15 00:00: 00 Yes [id number] Use as directed [facility] Nebulizer & Compressor For Neb Kami 2022-0 3-15 00:00: 00 Yes [id number] Use as directed [facility] Nebulizer & Compressor For Neb Kami 2022-0 3-15 00:00: 00 Yes [id number] Use as directed [facility] Nebulizer & Compressor For Neb Kami 2022-0 3-15 00:00: 00 Yes [id number] Use as directed [facility] Nebulizer & Compressor For Neb Kami 2022-0 3-15 00:00: 00 Yes [id number] Use as directed [facility] Nebulizer & Compressor For Neb Kami 2022-0 3-15 00:00: 00 Yes [id number] Use as directed [facility] Nebulizer & Compressor For Neb Kami 2022-0 3-15 00:00: 00 Yes [id number] Use as directed [facility] Nebulizer & Compressor For Neb Kami 2022-0 3-15 00:00: 00 Yes [id number] Use as directed [facility] Nebulizer & Compressor For Neb Kami 3-0 3-15 00:00: 00 Yes [id number] Use as directed [facility] Nebulizer & Compressor For Neb Kami 2022-0 3-15 00:00: 00 Yes [id number] Use as directed [facility] Nebulizer & Compressor For Neb Kami 3-0 3-15 00:00: 00 Yes [id number] Use as directed [facility] Nebulizer & Compressor For Neb Kami 3-0 3-15 00:00: 00 Yes [id number] Use as directed [facility] Nebulizer & Compressor For Neb Kami 2022-0 3-15 00:00: 00 Yes [id number] Use as directed [facility] Nebulizer & Compressor For Neb Kami 2022-0 3-15 00:00: 00 Yes [id number] Use as directed [facility] Nebulizer & Compressor For Neb Kami 2022-0 3-15 00:00: 00 Yes [id number] Use as directed [facility] Nebulizer & Compressor For Neb Kami 2022-0 3-15 00:00: 00 Yes [id number] Use as directed [facility] Nebulizer & Compressor For Neb Kami 2022-0 3-15 00:00: 00 Yes [id number] Use as directed [facility] Nebulizer & Compressor For Neb Kami 2022-0 3-15 00:00: 00 Yes [id number] Use as directed [facility] Nebulizer & Compressor For Neb Kami 2022-0 3-15 00:00: 00 Yes [id number] Use as directed [facility] Nebulizer & Compressor For Neb Kami 2022-0 3-15 00:00: 00 Yes [id number] Use as directed [facility] Nebulizer & Compressor For Neb Kami 2022-0 3-15 00:00: 00 Yes [id number] Use as directed [facility] Nebulizer & Compressor For Neb Kami 2022-0 3-15 00:00: 00 Yes [id number] Use as directed [facility] Nebulizer & Compressor For Neb Kami 2022-0 3-15 00:00: 00 Yes [id number] Use as directed [facility] Nebulizer & Compressor For Neb Kami 2022-0 3-15 00:00: 00 Yes [id number] Use as directed [facility] Nebulizer & Compressor For Neb Kami 3-0 3-15 00:00: 00 Yes [id number] Use as directed [facility] Nebulizer & Compressor For Neb Kami 2022-0 3-15 00:00: 00 Yes [id number] Use as directed [facility] Nebulizer & Compressor For Neb Kami 0 3-15 00:00: 00 Yes [id number] Use as directed [facility] Nebulizer & Compressor For Neb Kami 0 3-15 00:00: 00 Yes [id number] Use as directed [facility] Nebulizer & Compressor For Neb Kami 0 3-15 00:00: 00 Yes [id number] Use as directed [facility] Nebulizer & Compressor For Neb Kami 0 3-15 00:00: 00 Yes [id number] Use as directed [facility] Nebulizer & Compressor For Neb Kami 0 3-15 00:00: 00 Yes [id number] Use as directed [facility] Nebulizer & Compressor For Neb Kami 0 315 00:00: 00 Yes [id number] Use as directed [facility] Nebulizer & Compressor For Neb Kami 0 3-15 00:00: 00 Yes [id number] Use as directed [facility] Nebulizer & Compressor For Neb Kami 0 315 00:00: 00 Yes [id number] Use as directed [facility] albuterol 90 mcg/actuati on inhaler 0 315 00:00: 00 Yes [id number] 2{puff} Inhale 2 Puffs every 4 (four) hours as needed for Wheezing or Shortness of Breath. [facility] predniSONE 50 mg tablet 315 00:00: 00 Yes [id number] 50mg Take 1 tablet by mouth in the morning. [facility] Nebulizer & Compressor For Neb Kami 0 315 00:00: 00 Yes [id number] Use as directed [facility] albuterol 90 mcg/actuati on inhaler 0 3-15 00:00: 00 Yes [id number] 2{puff} Inhale 2 Puffs every 4 (four) hours as needed for Wheezing or Shortness of Breath. [facility] albuterol 90 mcg/actuati on inhaler 0 3-15 00:00: 00 12-12 00:00 :00 No [id number] 2{puff} Inhale 2 Puffs every 4 (four) hours as needed for Wheezing or Shortness of Breath. [facility] predniSONE 50 mg tablet 15 00:00: 00 12-04 00:00 :00 No [id number] 50mg Take 1 tablet by mouth in the morning. [facility] omeprazole 40 mg capsule 11-28 14:11: 11-28 00:00 :00 No 40mg Take 40 mg by mouth daily. [facility] carvediloL 25 mg tablet 11-28 14:11-28 00:00 :00 No 25mg Take 25 mg by mouth 2 (two) times daily with meals. [facility] busPIRone 30 mg tablet 11-28 14:: 11-28 00:00 :00 No 30mg Take 30 mg by mouth 2 (two) times daily. [facility] benazepriL 10 mg tablet 11-28 14:11: 11-28 00:00 :00 No 10mg Take 10 mg by mouth daily. [facility] hydroCHLORO thiazide 25 mg tablet 11-28 14:11: 11-28 00:00 :00 No 25mg Take 25 mg by mouth daily. [facility] levalbutero l (XOPENEX) nebulizer solution 0.63 mg 11-28 13:00: 00 Yes .63mg 0.63 mg, Inhalation , TID, First dose (after last modificati on) on 11/28/22 at 0800, Until Discontinu ed, Routine [facility] ipratropium (ATROVENT) 0.02 % nebulizer solution 0.5 mg 11-27 20:00: 00 Yes .5mg 0.5 mg, Inhalation , TID, First dose (after last modificati on) on 11/27/22 at 1400, Until Discontinu ed, Routine [facility] nicotine (NICODERM) 21 mg/24 hr patch 1 Patch 11-27 17:30: 00 Yes 1{patch } 1 Patch, Topical, Administer over 24 Hours, Q24H, First dose on 11/27/22 at 1130, Until Discontinu ed, Routine [facility] busPIRone (BUSPAR) tablet 10 mg 11-27 16:15: 00 Yes 10mg 10 mg, Oral, TID, First dose on 11/27/22 at 1015, Until Discontinu ed, Routine [facility] aspirin chewable tablet 81 mg 11-27 16:15: 00 Yes 81mg 81 mg, Oral, DAILY, First dose on 11/27/22 at 1015, Until Discontinu ed, Routine [facility] foLIC acid (FOLATE) tablet 1 mg 11-27 15:00: 00 Yes 1mg 1 mg, Oral, DAILY, First dose on Tue11/27/22 at 0900, Until Discontinu ed, Routine [facility] rivaroxaban (XARELTO) tablet 20 mg 11-27 15:00: 00 Yes 20mg 20 mg, Oral, DAILY, First dose on Tue11/27/22 at 0900, Until Discontinu ed, Routine [facility] omeprazole (PRILOSEC) capsule 40 mg 11-27 15:00: 00 Yes 40mg 40 mg, Oral, DAILY, First dose on Tue11/27/22 at 0900, Until Discontinu ed [facility] predniSONE (DELTASONE) tablet 40 mg 11-27 15:00: 00 12-02 13:59 :00 No 40mg 40 mg, Oral, DAILY, 5 doses, First dose on Tue11/27/22 at 0900, Last dose on Tue12/01/22 at 0900, Routine [facility] carvediloL (COREG) tablet 25 mg 11-27 14:00: 00 Yes 25mg 25 mg, Oral, BID MEALS, First dose on 11/27/22 at 0800, Until Discontinu ed, Routine [facility] levalbutero l (XOPENEX) nebulizer solution 0.31 mg 11-27 14:00: 00 11-28 12:33 :58 No .31mg 0.31 mg, Inhalation , TID, First dose on Tue11/27/22 at 0800, Until Discontinu ed, Routine [facility] ipratropium (ATROVENT) 0.02 % nebulizer solution 0.5 mg 11-27 14:00: 00 11-27 18:48 :56 No .5mg 0.5 mg, Inhalation , QID, First dose on Tue11/27/22 at 0800, Until Discontinu ed, Routine [facility] thiamine (VITAMIN B1) tablet 100 mg 11-27 08:30: 00 Yes 100mg 100 mg, Oral, DAILY, First dose (after last modificati on) on Tue11/27/22 at 0230, Until Discontinu ed, Routine [facility] LORazepam (ATIVAN) injection 1 mg 11-27 08:16: 19 Yes 1mg 1 mg, Slow IV Push, Q4HPRN, Starting on Tue11/27/22 at 0216, Until Discontinu ed, Routine, Agitation, Seizures, withdrawl [facility] levalbutero l (XOPENEX) nebulizer solution 1.25 mg 11-19 14:00: 00 Yes 1.25mg 1.25 mg, Inhalation , TID, First dose on Tue11/19/22 at 0800, Until Discontinu ed, Routine [facility] ipratropium (ATROVENT) 0.02 % nebulizer solution 0.5 mg 11-19 09:30: 00 11-19 08:47 :00 No .5mg 0.5 mg, Inhalation , ONCE, 1 dose, On Tue11/19/22 at 0330, Routine [facility] levalbutero l (XOPENEX) nebulizer solution 1.25 mg 11-19 02:00: 00 11-19 01:21 :00 No 1.25mg 1.25 mg, Inhalation , ONCE, 1 dose, On Tue23 at 1999, Routine [facility] thiamine 100 mg tablet 2022-0 2-24 00:00: 00 12-13 04:59 :00 No [id number] 100mg Take 1 tablet by mouth in the morning for 30 days. [facility] thiamine 100 mg tablet 2022-0 2-24 00:00: 00 12-13 04:59 :00 No [id number] 100mg Take 1 tablet by mouth in the morning for 30 days. [facility] thiamine 100 mg tablet 2022-0 2-24 00:00: 00 12-13 04:59 :00 No [id number] 100mg Take 1 tablet by mouth in the morning for 30 days. [facility] 20[facility]-0 224 00:00: 00 12-13 04:59 :00 No [id number] 100mg Take 1 tablet by mouth in the morning for 30 days. [facility] thiamine 100 mg tablet 2022-0 224 00:00: 00 12-13 04:59 :00 No [id number] 100mg Take 1 tablet by mouth in the morning for 30 days. [facility] thiamine 100 mg tablet 2022-0 224 00:00: 00 11-28 00:00 :00 No [id number] 100mg Take 1 tablet by mouth in the morning for 30 days. [facility] thiamine (VITAMIN B1) tablet 100 mg 11-11 15:00: 00 Yes 100mg 100 mg, Oral, DAILY, First dose on Elizabeth 11/11/22 at 0900, Until Discontinu ed, Routine [facility] omeprazole 40 mg capsule 11-11 13:41: 29 Yes 40mg Take 40 mg by mouth daily. [facility] carvediloL 25 mg tablet 11-11 13:41: 29 Yes 25mg Take 25 mg by mouth 2 (two) times daily with meals. [facility] busPIRone 30 mg tablet 11-11 13:41: 29 Yes 30mg Take 30 mg by mouth 2 (two) times daily. [facility] benazepriL 10 mg tablet 11-11 13:41: 29 Yes 10mg Take 10 mg by mouth daily. [facility] hydroCHLORO thiazide 25 mg tablet 11-11 13:41: 29 Yes 25mg Take 25 mg by mouth daily. [facility] omeprazole 40 mg capsule 11-11 13:41: 29 Yes 40mg Take 40 mg by mouth daily. [facility] carvediloL 25 mg tablet 11-11 13:41: 29 Yes 25mg Take 25 mg by mouth 2 (two) times daily with meals. [facility] busPIRone 30 mg tablet 11-11 13:41: 29 Yes 30mg Take 30 mg by mouth 2 (two) times daily. [facility] benazepriL 10 mg tablet 11-11 13:41: 29 Yes 10mg Take 10 mg by mouth daily. [facility] hydroCHLORO thiazide 25 mg tablet 11-11 13:41: 29 Yes 25mg Take 25 mg by mouth daily. [facility] omeprazole 40 mg capsule 11-11 13:41: 29 Yes 40mg Take 40 mg by mouth daily. [facility] carvediloL 25 mg tablet 11-11 13:41: 29 Yes 25mg Take 25 mg by mouth 2 (two) times daily with meals. [facility] busPIRone 30 mg tablet 11-11 13:41: 29 Yes 30mg Take 30 mg by mouth 2 (two) times daily. [facility] benazepriL 10 mg tablet 0 11-11 13:41: 29 Yes 10mg Take 10 mg by mouth daily. [facility] hydroCHLORO thiazide 25 mg tablet 11-11 13:41: 29 Yes 25mg Take 25 mg by mouth daily. [facility] omeprazole 40 mg capsule 11-11 13:41: 29 Yes 40mg Take 40 mg by mouth daily. [facility] carvediloL 25 mg tablet 11-11 13:41: 29 Yes 25mg Take 25 mg by mouth 2 (two) times daily with meals. [facility] busPIRone 30 mg tablet 11-11 13:41: 29 Yes 30mg Take 30 mg by mouth 2 (two) times daily. [facility] benazepriL 10 mg tablet 11-11 13:41: 29 Yes 10mg Take 10 mg by mouth daily. [facility] hydroCHLORO thiazide 25 mg tablet 11-11 13:41: 29 Yes 25mg Take 25 mg by mouth daily. [facility] omeprazole 40 mg capsule 11-11 13:41: 29 Yes 40mg Take 40 mg by mouth daily. [facility] carvediloL 25 mg tablet 11-11 13:41: 29 Yes 25mg Take 25 mg by mouth 2 (two) times daily with meals. [facility] busPIRone 30 mg tablet 11-11 13:41: 29 Yes 30mg Take 30 mg by mouth 2 (two) times daily. [facility] benazepriL 10 mg tablet 11-11 13:41: 29 Yes 10mg Take 10 mg by mouth daily. [facility] hydroCHLORO thiazide 25 mg tablet 11-11 13:41: 29 Yes 25mg Take 25 mg by mouth daily. [facility] foLIC acid (FOLATE) tablet 1 mg 11-11 00:15: 00 11-11 00:26 :00 No 1mg 1 mg, Oral, ONCE, 1 dose, On Tue11/10/22 at 1815, Routine [facility] benzocaine- menthoL lozenge 11-11 00:00: 00 Yes [id number] 1{lozen ge} Take 1 Lozenge by mouth every 4 (four) hours as needed for Sore throat. [facility] budesonide- formoteroL 80-4.5 mcg/actuati on inhaler 11-11 00:00: 00 Yes [id number] 2{puff} Inhale 2 Puffs in the morning and 2 Puffs in the evening. [facility] benzocaine- menthoL lozenge 11-11 00:00: 00 Yes [id number] 1{lozen ge} Take 1 Lozenge by mouth every 4 (four) hours as needed for Sore throat. [facility] budesonide- formoteroL 80-4.5 mcg/actuati on inhaler 11-11 00:00: 00 Yes [id number] 2{puff} Inhale 2 Puffs in the morning and 2 Puffs in the evening. [facility] benzocaine- menthoL lozenge 11-11 00:00: 00 Yes [id number] 1{lozen ge} Take 1 Lozenge by mouth every 4 (four) hours as needed for Sore throat. [facility] budesonide- formoteroL 80-4.5 mcg/actuati on inhaler 11-11 00:00: 00 Yes [id number] 2{puff} Inhale 2 Puffs in the morning and 2 Puffs in the evening. [facility] benzocaine- menthoL lozenge 11-11 00:00: 00 Yes [id number] 1{lozen ge} Take 1 Lozenge by mouth every 4 (four) hours as needed for Sore throat. [facility] budesonide- formoteroL 80-4.5 mcg/actuati on inhaler 11-11 00:00: 00 Yes [id number] 2{puff} Inhale 2 Puffs in the morning and 2 Puffs in the evening. [facility] benzocaine- menthoL lozenge 11-11 00:00: 00 Yes [id number] 1{lozen ge} Take 1 Lozenge by mouth every 4 (four) hours as needed for Sore throat. [facility] budesonide- formoteroL 80-4.5 mcg/actuati on inhaler 11-11 00:00: 00 Yes [id number] 2{puff} Inhale 2 Puffs in the morning and 2 Puffs in the evening. [facility] benzocaine- menthoL lozenge 11-11 00:00: 00 11-28 00:00 :00 No [id number] 1{lozen ge} Take 1 Lozenge by mouth every 4 (four) hours as needed for Sore throat. [facility] budesonide- formoteroL 80-4.5 mcg/actuati on inhaler 11-11 00:00: 00 11-28 00:00 :00 No [id number] 2{puff} Inhale 2 Puffs in the morning and 2 Puffs in the evening. [facility] sodium chloride 1 gram tablet 11-11 00:00: 00 11-22 05:59 :00 No [id number] 1g Take 1 tablet by mouth in the morning and 1 tablet at noon and 1 tablet in the evening. Take with meals. Do all this for 10 days. [facility] sodium chloride 1 gram tablet 11-11 00:00: 00 11-22 05:59 :00 No [id number] 1g Take 1 tablet by mouth in the morning and 1 tablet at noon and 1 tablet in the evening. Take with meals. Do all this for 10 days. [facility] sodium chloride 1 gram tablet 11-11 00:00: 00 11-22 05:59 :00 No [id number] 1g Take 1 tablet by mouth in the morning and 1 tablet at noon and 1 tablet in the evening. Take with meals. Do all this for 10 days. [facility] sodium chloride 1 gram tablet 11-11 00:00: 00 11-22 05:59 :00 No [id number] 1g Take 1 tablet by mouth in the morning and 1 tablet at noon and 1 tablet in the evening. Take with meals. Do all this for 10 days. [facility] levoFLOXaci n 750 mg tablet 11-11 00:00: 00 11-17 05:59 :00 No [id number] 750mg Take 1 tablet by mouth every 24 (twenty-fo ur) hours for 5 days. [facility] levoFLOXaci n 750 mg tablet 11-11 00:00: 00 11-17 05:59 :00 No [id number] 750mg Take 1 tablet by mouth every 24 (twenty-fo ur) hours for 5 days. [facility] predniSONE 20 mg tablet 11-11 00:00: 00 11-15 05:59 :00 No [id number] 40mg Take 2 tablets by mouth in the morning for 3 days. [facility] predniSONE 20 mg tablet 11-11 00:00: 00 11-15 05:59 :00 No [id number] 40mg Take 2 tablets by mouth in the morning for 3 days. [facility] sodium chloride tablet 1 g 11-10 23:15: 00 Yes 1g 1 g, Oral, TID MEALS, First dose on Tue11/10/22 at 1715, Until Discontinu ed, Routine [facility] benzocaine- menthoL (CEPACOL SORE THROAT (JACINTO-MEN)) lozenge 1 Lozenge 11-10 20:49: 25 Yes 1{lozen ge} 1 Lozenge, Oral, Q4HPRN, Starting on Tue11/10/22 at 1449, Until Discontinu ed, Routine, Sore throat [facility] budesonide- formoteroL (SYMBICORT) 80-4.5 mcg/actuati on inhaler 2 Puff 11-10 17:30: 00 Yes 2{puff} 2 Puff, Inhalation , BID, First dose on Tue11/10/22 at 1130, Until Discontinu ed, Routine [facility] omeprazole (PRILOSEC) capsule 40 mg 11-10 15:00: 00 Yes 40mg 40 mg, Oral, DAILY, First dose on Tue11/10/22 at 0900, Until Discontinu ed [facility] rivaroxaban (XARELTO) tablet 20 mg 11-10 15:00: 00 Yes 20mg 20 mg, Oral, DAILY, First dose on Tue11/10/22 at 0900, Until Discontinu ed, Routine [facility] aspirin chewable tablet 81 mg 11-10 15:00: 00 Yes 81mg 81 mg, Oral, DAILY, First dose on Tue11/10/22 at 0900, Until Discontinu ed, [facility] methylPREDN ISolone sod succ (SOLU-MEDRO L (PF)) injection 40 mg 11-10 15:00: 00 11-14 14:59 :00 No 40mg 40 mg, Intravenou s, DAILY, 4 doses, First dose on Tue11/10/22 at 0900, Last dose on Tue11/13/22 at 0900, 1 mL [facility] NaCl 0.9% (NS) IV infusion 1,000 mL 11-10 09:00: 00 Yes 1000mL at 100 mL/hr, IV Infusion, CONTINUOUS , Starting on Tue11/10/22 at 0300, Until Discontinu ed, Routine [facility] levoFLOXaci n in D5W (LEVAQUIN) 750 mg/150 mL Piggyback 750 mg 11-10 09:00: 00 11-17 08:59 :00 No 750mg 750 mg, IV Piggyback, at 100 mL/hr Administer over 90 Minutes, Q24H ABX, 7 doses, First dose on Tue11/10/22 at 0300, Last dose on Tue11/16/22 at 0300, MICHAEL
Re ason for Anti-Infec tive: Empiric Therapy for Suspected Infection< br>Empiric Therapy Site: Urine
D uration of therapy: 5 days [facility] busPIRone (BUSPAR) tablet 30 mg 11-10 02:00: 00 Yes 30mg 30 mg, Oral, BID, First dose on Tue11/09/22 at 2000, Until Discontinu ed, Routine [facility] carvediloL (COREG) tablet 25 mg 11-09 23:00: 00 Yes 25mg 25 mg, Oral, BID MEALS, First dose on Tue11/09/22 at 1700, Until Discontinu ed, Routine [facility] ipratropium (ATROVENT) 0.02 % nebulizer solution 0.5 mg 11-09 22:00: 00 Yes .5mg 0.5 mg, Inhalation , Q4H, First dose on Tue11/09/22 at 1600, Until Discontinu ed, Routine [facility] albuterol (PROVENTIL) 2.5 mg /3 mL (0.083 %) nebulizer solution 2.5 mg 11-09 22:00: 00 Yes 2.5mg 2.5 mg, Inhalation , Q4H, First dose on Tue11/09/22 at 1600, Until Discontinu ed, Routine [facility] NaCl 0.9% (NS) bolus infusion 500 mL 11-09 20:15: 00 11-09 21:30 :21 No 500mL at 999 mL/hr, 500 mL, IV Infusion, ONCE, 1 dose, On Tue11/09/22 at 1415, STAT [facility] ondansetron (ZOFRAN (PF)) injection 4 mg 11-09 20:04: 17 Yes 4mg 4 mg, Slow IV Push, Q6HPRN, Starting on Tue11/09/22 at 1404, Until Discontinu ed, Routine, Nausea and Vomiting (N/V) [facility] acetaminoph en (TYLENOL) tablet 650 mg 11-09 20:04: 07 Yes 650mg 650 mg, Oral, Q6HPRN, Starting on Tue11/09/22 at 1404, Until Discontinu ed, Routine, Pain (scale 1-3), Temp > 38 C [facility] albuterol (PROVENTIL) 2.5 mg /3 mL (0.083 %) nebulizer solution 5 mg 11-09 14:00: 00 11-09 14:05 :00 No 5mg 5 mg, Inhalation , ONCE, 1 dose, On Tue11/09/22 at 0800, STAT [facility] albuterol (PROVENTIL) 2.5 mg /3 mL (0.083 %) nebulizer solution 10 mg -21 11:00: 00 11-09 11:04 :00 No 10mg 10 mg, Inhalation , ONCE, 1 dose, On Tue11/09/22 at 0500, STAT [facility] ipratropium (ATROVENT) 0.02 % nebulizer solution 0.5 mg 11-09 09:00: 00 11-09 08:59 :00 No .5mg 0.5 mg, Inhalation , ONCE, 1 dose, On Tue11/09/22 at 0300, [facility] albuterol (PROVENTIL) 2.5 mg /3 mL (0.083 %) nebulizer solution 2.5 mg 11-09 09:00: 00 11-09 08:59 :00 No 2.5mg 2.5 mg, Inhalation , ONCE, 1 dose, On Tue11/09/22 at 0300, [facility] magnesium sulfate in water 2 gram/50 mL (4 %) infusion 2 g 11-09 08:30: 00 11-09 08:22 :00 No 2g 2 g, IV Piggyback, Administer over 60 Minutes, ONCE, 1 dose, On Tue11/09/22 at 0230, Routine [facility] methylPREDN ISolone sodium succinate (SOLU-MEDRO L) injection 125 mg 11-09 07:45: 00 11-09 07:41 :00 No 125mg 125 mg, Intravenou s, ONCE, 1 dose, On Tue11/09/22 at 0145, [facility] ipratropium (ATROVENT) 0.02 % nebulizer solution 0.5 mg 11-09 07:45: 00 11-09 07:40 :00 No .5mg 0.5 mg, Inhalation , ONCE, 1 dose, On Tue11/09/22 at 0145, [facility] albuterol (PROVENTIL) 2.5 mg /3 mL (0.083 %) nebulizer solution 2.5 mg 11-09 07:45: 00 11-09 07:40 :00 No 2.5mg 2.5 mg, Inhalation , ONCE, 1 dose, On Tue11/09/22 at 0145, STAT [facility] cephALEXin (KEFLEX) 500 mg capsule 05-22 00:00: 00 Yes [id number] 500mg Take 1 capsule by mouth 4 (four) times daily. [facility] cephALEXin (KEFLEX) 500 mg capsule 05-22 00:00: 00 Yes [id number] 500mg Take 1 capsule by mouth 4 (four) times daily. [facility] cephALEXin (KEFLEX) 500 mg capsule 05-22 00:00: 00 11-11 00:00 :00 No [id number] 500mg Take 1 capsule by mouth 4 (four) times daily. [facility] cefTRIAXone (ROCEPHIN) 1,000 mg in NaCl 0.9% (NS) 50 mL MINI-BAG 12-12 19:00: 00 12-12 18:23 :00 No 1000mg 1,000 mg, IV Piggyback, ONCE, 1 dose, Tue12/12/20 at 1400, 50 mL
Reas on for Anti-Infec tive: Empiric Therapy for Suspected Infection< br>Empiric Therapy Site: Urine
D uration of therapy: 72 hours [facility] carvediloL 25 mg tablet 12-12 18:38: 04 Yes 25mg Take 25 mg by mouth 2 (two) times daily with meals. [facility] busPIRone 30 mg tablet 12-12 18:38: 04 Yes 30mg Take 30 mg by mouth 2 (two) times daily. [facility] benazepriL 10 mg tablet 12-12 18:38: 04 Yes 10mg Take 10 mg by mouth daily. [facility] hydroCHLORO thiazide 25 mg tablet 12-12 18:38: 04 Yes 25mg Take 25 mg by mouth daily. [facility] carvediloL 25 mg tablet 12-12 18:38: 04 Yes 25mg Take 25 mg by mouth 2 (two) times daily with meals. [facility] busPIRone 30 mg tablet 12-12 18:38: 04 Yes 30mg Take 30 mg by mouth 2 (two) times daily. [facility] benazepriL 10 mg tablet 12-12 18:38: 04 Yes 10mg Take 10 mg by mouth daily. [facility] hydroCHLORO thiazide 25 mg tablet 12-12 18:38: 04 Yes 25mg Take 25 mg by mouth daily. [facility] carvediloL 25 mg tablet 12-12 18:38: 04 Yes 25mg Take 25 mg by mouth 2 (two) times daily with meals. [facility] busPIRone 30 mg tablet 12-12 18:38: 04 Yes 30mg Take 30 mg by mouth 2 (two) times daily. [facility] benazepriL 10 mg tablet 12-12 18:38: 04 Yes 10mg Take 10 mg by mouth daily. [facility] hydroCHLORO thiazide 25 mg tablet 12-12 18:38: 04 Yes 25mg Take 25 mg by mouth daily. [facility] carvediloL 25 mg tablet 12-12 18:38: 04 Yes 25mg Take 25 mg by mouth 2 (two) times daily with meals. [facility] busPIRone 30 mg tablet 12-12 18:38: 04 Yes 30mg Take 30 mg by mouth 2 (two) times daily. [facility] benazepriL 10 mg tablet 12-12 18:38: 04 Yes 10mg Take 10 mg by mouth daily. [facility] hydroCHLORO thiazide 25 mg tablet 12-12 18:38: 04 Yes 25mg Take 25 mg by mouth daily. [facility] carvediloL 25 mg tablet 12-12 18:38: 04 Yes 25mg Take 25 mg by mouth 2 (two) times daily with meals. [facility] busPIRone 30 mg tablet 12-12 18:38: 04 Yes 30mg Take 30 mg by mouth 2 (two) times daily. [facility] benazepriL 10 mg tablet 12-12 18:38: 04 Yes 10mg Take 10 mg by mouth daily. [facility] hydroCHLORO thiazide 25 mg tablet 12-12 18:38: 04 Yes 25mg Take 25 mg by mouth daily. [facility] carvediloL 25 mg tablet 12-12 18:38: 04 Yes 25mg Take 25 mg by mouth 2 (two) times daily with meals. [facility] busPIRone 30 mg tablet 12-12 18:38: 04 Yes 30mg Take 30 mg by mouth 2 (two) times daily. [facility] benazepriL 10 mg tablet 12-12 18:38: 04 Yes 10mg Take 10 mg by mouth daily. [facility] hydroCHLORO thiazide 25 mg tablet 12-12 18:38: 04 Yes 25mg Take 25 mg by mouth daily. [facility] carvediloL 25 mg tablet 12-12 18:38: 04 Yes 25mg Take 25 mg by mouth 2 (two) times daily with meals. [facility] busPIRone 30 mg tablet 12-12 18:38: 04 Yes 30mg Take 30 mg by mouth 2 (two) times daily. [facility] benazepriL 10 mg tablet 12-12 18:38: 04 Yes 10mg Take 10 mg by mouth daily. [facility] hydroCHLORO thiazide 25 mg tablet 12-12 18:38: 04 Yes 25mg Take 25 mg by mouth daily. [facility] carvediloL 25 mg tablet 12-12 18:38: 04 Yes 25mg Take 25 mg by mouth 2 (two) times daily with meals. [facility] busPIRone 30 mg tablet 12-12 18:38: 04 Yes 30mg Take 30 mg by mouth 2 (two) times daily. [facility] benazepriL 10 mg tablet 12-12 18:38: 04 Yes 10mg Take 10 mg by mouth daily. [facility] hydroCHLORO thiazide 25 mg tablet 12-12 18:38: 04 Yes 25mg Take 25 mg by mouth daily. [facility] carvediloL 25 mg tablet 12-12 18:38: 04 Yes 25mg Take 25 mg by mouth 2 (two) times daily with meals. [facility] busPIRone 30 mg tablet 12-12 18:38: 04 Yes 30mg Take 30 mg by mouth 2 (two) times daily. [facility] benazepriL 10 mg tablet 12-12 18:38: 04 Yes 10mg Take 10 mg by mouth daily. [facility] hydroCHLORO thiazide 25 mg tablet 12-12 18:38: 04 Yes 25mg Take 25 mg by mouth daily. [facility] carvediloL 25 mg tablet 12-12 18:38: 04 Yes 25mg Take 25 mg by mouth 2 (two) times daily with meals. [facility] busPIRone 30 mg tablet 12-12 18:38: 04 Yes 30mg Take 30 mg by mouth 2 (two) times daily. [facility] benazepriL 10 mg tablet 12-12 18:38: 04 Yes 10mg Take 10 mg by mouth daily. [facility] hydroCHLORO thiazide 25 mg tablet 12-12 18:38: 04 Yes 25mg Take 25 mg by mouth daily. [facility] carvediloL 25 mg tablet 12-12 18:38: 04 Yes 25mg Take 25 mg by mouth 2 (two) times daily with meals. [facility] busPIRone 30 mg tablet 12-12 18:38: 04 Yes 30mg Take 30 mg by mouth 2 (two) times daily. [facility] benazepriL 10 mg tablet 12-12 18:38: 04 Yes 10mg Take 10 mg by mouth daily. [facility] hydroCHLORO thiazide 25 mg tablet 12-12 18:38: 04 Yes 25mg Take 25 mg by mouth daily. [facility] carvediloL 25 mg tablet 12-12 18:38: 04 Yes 25mg Take 25 mg by mouth 2 (two) times daily with meals. [facility] busPIRone 30 mg tablet 12-12 18:38: 04 Yes 30mg Take 30 mg by mouth 2 (two) times daily. [facility] benazepriL 10 mg tablet 12-12 18:38: 04 Yes 10mg Take 10 mg by mouth daily. [facility] hydroCHLORO thiazide 25 mg tablet 12-12 18:38: 04 Yes 25mg Take 25 mg by mouth daily. [facility] carvediloL 25 mg tablet 12-12 18:38: 04 Yes 25mg Take 25 mg by mouth 2 (two) times daily with meals. [facility] busPIRone 30 mg tablet 12-12 18:38: 04 Yes 30mg Take 30 mg by mouth 2 (two) times daily. [facility] benazepriL 10 mg tablet 12-12 18:38: 04 Yes 10mg Take 10 mg by mouth daily. [facility] hydroCHLORO thiazide 25 mg tablet 12-12 18:38: 04 Yes 25mg Take 25 mg by mouth daily. [facility] carvediloL 25 mg tablet 12-12 18:38: 04 Yes 25mg Take 25 mg by mouth 2 (two) times daily with meals. [facility] busPIRone 30 mg tablet 12-12 18:38: 04 Yes 30mg Take 30 mg by mouth 2 (two) times daily. [facility] benazepriL 10 mg tablet 12-12 18:38: 04 Yes 10mg Take 10 mg by mouth daily. [facility] hydroCHLORO thiazide 25 mg tablet 12-12 18:38: 04 Yes 25mg Take 25 mg by mouth daily. [facility] carvediloL 25 mg tablet 12-12 18:38: 04 Yes 25mg Take 25 mg by mouth 2 (two) times daily with meals. [facility] busPIRone 30 mg tablet 12-12 18:38: 04 Yes 30mg Take 30 mg by mouth 2 (two) times daily. [facility] benazepriL 10 mg tablet 12-12 18:38: 04 Yes 10mg Take 10 mg by mouth daily. [facility] hydroCHLORO thiazide 25 mg tablet 12-12 18:38: 04 Yes 25mg Take 25 mg by mouth daily. [facility] iohexol (OMNIPAQUE 350 BULK-150 mL) injection 120 mL 12-12 17:30: 00 12-12 17:21 :00 No [id number] 120mL 120 mL, Intravenou s, ONCE, 1 dose, Tue12/12/20 at 1230, Routine [facility] aspirin 81 mg EC tablet 12-12 16:57: 40 12-12 00:00 :00 No 81mg Take 81 mg by mouth daily. [facility] varenicline (CHANTIX) 1 mg tablet 12-12 16:57: 18 12-12 00:00 :00 No 1mg Take 1 mg by mouth 2 (two) times daily. [facility] predniSONE 20 mg tablet 12-12 16:57: 12 12-12 00:00 :00 No 20mg Take 20 mg by mouth daily. [facility] fluticasone -umeclidin- vilanter (TRELEGY ELLIPTA) 100-62.5-25 mcg DsDv 12-12 16:56: 46 12-12 00:00 :00 No 1{puff} Inhale 1 Puff daily. [facility] cefpodoxime 100 mg tablet 12-12 00:00: 00 Yes [id number] 100mg Take 1 tablet by mouth 2 (two) times daily. [facility] cefpodoxime 100 mg tablet 2020-0 12-12 00:00: 00 Yes [id number] 100mg Take 1 tablet by mouth 2 (two) times daily. [facility] cefpodoxime 100 mg tablet 2020-0 12-12 00:00: 00 Yes [id number] 100mg Take 1 tablet by mouth 2 (two) times daily. [facility] cefpodoxime 100 mg tablet 2020-0 12-12 00:00: 00 Yes [id number] 100mg Take 1 tablet by mouth 2 (two) times daily. [facility] cefpodoxime 100 mg tablet 2020-0 12-12 00:00: 00 Yes [id number] 100mg Take 1 tablet by mouth 2 (two) times daily. [facility] cefpodoxime 100 mg tablet 2020-0 12-12 00:00: 00 Yes [id number] 100mg Take 1 tablet by mouth 2 (two) times daily. [facility] cefpodoxime 100 mg tablet 2020-0 12-12 00:00: 00 Yes [id number] 100mg Take 1 tablet by mouth 2 (two) times daily. [facility] cefpodoxime 100 mg tablet 2020-0 12-12 00:00: 00 Yes [id number] 100mg Take 1 tablet by mouth 2 (two) times daily. [facility] cefpodoxime 100 mg tablet 2020-0 12-12 00:00: 00 Yes [id number] 100mg Take 1 tablet by mouth 2 (two) times daily. [facility] cefpodoxime 100 mg tablet 2020-0 12-12 00:00: 00 Yes [id number] 100mg Take 1 tablet by mouth 2 (two) times daily. [facility] cefpodoxime 100 mg tablet 2020-0 12-12 00:00: 00 Yes [id number] 100mg Take 1 tablet by mouth 2 (two) times daily. [facility] cefpodoxime 100 mg tablet 2020-0 12-12 00:00: 00 Yes [id number] 100mg Take 1 tablet by mouth 2 (two) times daily. [facility] cefpodoxime 100 mg tablet 2020-0 12-12 00:00: 00 Yes [id number] 100mg Take 1 tablet by mouth 2 (two) times daily. [facility] cefpodoxime 100 mg tablet 12-12 00:00: 00 Yes [id number] 100mg Take 1 tablet by mouth 2 (two) times daily. [facility] cefpodoxime 100 mg tablet 12-12 00:00: 00 Yes [id number] 100mg Take 1 tablet by mouth 2 (two) times daily. [facility] cefpodoxime 100 mg tablet 12-12 00:00: 00 11-11 00:00 :00 No [id number] 100mg Take 1 tablet by mouth 2 (two) times daily. [facility] cefpodoxime 100 mg tablet 12-12 00:00: 00 12-12 00:00 :00 No [id number] 100mg Take 1 tablet by mouth 2 (two) times daily for 7 days. [facility] XARELTO 15 mg tablet 0 10-16 00:00: 00 Yes [facility] XARELTO 15 mg tablet 0 10-16 00:00: 00 Yes [facility] XARELTO 15 mg tablet 0 10-16 00:00: 00 Yes [facility] XARELTO 15 mg tablet 0 10-16 00:00: 00 Yes [facility] XARELTO 15 mg tablet 0 10-16 00:00: 00 Yes [facility] XARELTO 15 mg tablet 0 10-16 00:00: 00 Yes [facility] XARELTO 15 mg tablet 0 10-16 00:00: 00 Yes [facility] XARELTO 15 mg tablet 0 10-16 00:00: 00 Yes [facility] XARELTO 15 mg tablet 0 10-16 00:00: 00 Yes [facility] XARELTO 15 mg tablet 0 10-16 00:00: 00 Yes [facility] XARELTO 15 mg tablet 202110-16 00:00: 00 Yes [facility] XARELTO 15 mg tablet 0 10-16 00:00: 00 Yes [facility] XARELTO 15 mg tablet 0 10-16 00:00: 00 Yes [facility] XARELTO 15 mg tablet 0 10-16 00:00: 00 Yes [facility] XARELTO 15 mg tablet 0 10-16 00:00: 00 Yes [facility] XARELTO 15 mg tablet 0 10-16 00:00: 00 Yes [facility] XARELTO 15 mg tablet 0 10-16 00:00: 00 Yes [facility] XARELTO 15 mg tablet 10-16 00:00: 00 Yes [facility] XARELTO 15 mg tablet 10-16 00:00: 00 Yes [facility] XARELTO 15 mg tablet 10-16 00:00: 00 Yes [facility] XARELTO 15 mg tablet 10-16 00:00: 00 Yes [facility] XARELTO 15 mg tablet 10-16 00:00: 00 Yes [facility] XARELTO 15 mg tablet 10-16 00:00: 00 Yes [facility] XARELTO 15 mg tablet 10-16 00:00: 00 11-28 00:00 :00 No [facility] omeprazole 40 mg capsule 2018-09 00:11: 42 Yes 40mg Take 40 mg by mouth daily. [facility] omeprazole 40 mg capsule 2018-09 00:11: 42 Yes 40mg Take 40 mg by mouth daily. [facility] varenicline (CHANTIX) 1 mg tablet 2018-09 00:11: 42 Yes 1mg Take 1 mg by mouth 2 (two) times daily. [facility] predniSONE 20 mg tablet 2018-09 00:11: 42 Yes 20mg Take 20 mg by mouth daily. [facility] omeprazole 40 mg capsule 2018-09 00:11: 42 Yes 40mg Take 40 mg by mouth daily. [facility] fluticasone -umeclidin- vilanter (TRELEGY ELLIPTA) 100-62.5-25 mcg DsDv 2018-09 00:11: 42 Yes 1{puff} Inhale 1 Puff daily. [facility] aspirin 81 mg EC tablet 2018-09 00:11: 42 Yes 81mg Take 81 mg by mouth daily. [facility] varenicline (CHANTIX) 1 mg tablet 2018-09 00:11: 42 Yes 1mg Take 1 mg by mouth 2 (two) times daily. [facility] predniSONE 20 mg tablet 2018-09 00:11: 42 Yes 20mg Take 20 mg by mouth daily. [facility] omeprazole 40 mg capsule 2018-09 00:11: 42 Yes 40mg Take 40 mg by mouth daily. [facility] fluticasone -umeclidin- vilanter (TRELEGY ELLIPTA) 100-62.5-25 mcg DsDv 2018-09 00:11: 42 Yes 1{puff} Inhale 1 Puff daily. [facility] aspirin 81 mg EC tablet 2018-09 00:11: 42 Yes 81mg Take 81 mg by mouth daily. [facility] varenicline (CHANTIX) 1 mg tablet 2018-09 00:11: 42 Yes 1mg Take 1 mg by mouth 2 (two) times daily. [facility] predniSONE 20 mg tablet 2018-09 00:11: 42 Yes 20mg Take 20 mg by mouth daily. [facility] omeprazole 40 mg capsule 2018-09 00:11: 42 Yes 40mg Take 40 mg by mouth daily. [facility] fluticasone -umeclidin- vilanter (TRELEGY ELLIPTA) 100-62.5-25 mcg DsDv 2018-09 00:11: 42 Yes 1{puff} Inhale 1 Puff daily. [facility] aspirin 81 mg EC tablet 2018-09 00:11: 42 Yes 81mg Take 81 mg by mouth daily. [facility] varenicline (CHANTIX) 1 mg tablet 2018-09 00:11: 42 Yes 1mg Take 1 mg by mouth 2 (two) times daily. [facility] predniSONE 20 mg tablet 2018-09 00:11: 42 Yes 20mg Take 20 mg by mouth daily. [facility] omeprazole 40 mg capsule 2018-09 00:11: 42 Yes 40mg Take 40 mg by mouth daily. [facility] fluticasone -umeclidin- vilanter (TRELEGY ELLIPTA) 100-62.5-25 mcg DsDv 2018-09 00:11: 42 Yes 1{puff} Inhale 1 Puff daily. [facility] aspirin 81 mg EC tablet 2018-09 00:11: 42 Yes 81mg Take 81 mg by mouth daily. [facility] varenicline (CHANTIX) 1 mg tablet 2018-09 00:11: 42 Yes 1mg Take 1 mg by mouth 2 (two) times daily. [facility] predniSONE 20 mg tablet 2018-09 00:11: 42 Yes 20mg Take 20 mg by mouth daily. [facility] omeprazole 40 mg capsule 2018-09 00:11: 42 Yes 40mg Take 40 mg by mouth daily. [facility] fluticasone -umeclidin- vilanter (TRELEGY ELLIPTA) 100-62.5-25 mcg DsDv 2018-09 00:11: 42 Yes 1{puff} Inhale 1 Puff daily. [facility] aspirin 81 mg EC tablet 2018-09 00:11: 42 Yes 81mg Take 81 mg by mouth daily. [facility] varenicline (CHANTIX) 1 mg tablet 2018-09 00:11: 42 Yes 1mg Take 1 mg by mouth 2 (two) times daily. [facility] predniSONE 20 mg tablet 2018-09 00:11: 42 Yes 20mg Take 20 mg by mouth daily. [facility] omeprazole 40 mg capsule 2018-09 00:11: 42 Yes 40mg Take 40 mg by mouth daily. [facility] fluticasone -umeclidin- vilanter (TRELEGY ELLIPTA) 100-62.5-25 mcg DsDv 2018-09 00:11: 42 Yes 1{puff} Inhale 1 Puff daily. [facility] aspirin 81 mg EC tablet 2018-09 00:11: 42 Yes 81mg Take 81 mg by mouth daily. [facility] omeprazole 40 mg capsule 2018-09 00:11: 42 Yes 40mg Take 40 mg by mouth daily. [facility] omeprazole 40 mg capsule 2018-09 00:11: 42 Yes 40mg Take 40 mg by mouth daily. [facility] omeprazole 40 mg capsule 2018-09 00:11: 42 Yes 40mg Take 40 mg by mouth daily. [facility] omeprazole 40 mg capsule 2018-09 00:11: 42 Yes 40mg Take 40 mg by mouth daily. [facility] omeprazole 40 mg capsule 2018-09 00:11: 42 Yes 40mg Take 40 mg by mouth daily. [facility] omeprazole 40 mg capsule 2018-09 00:11: 42 Yes 40mg Take 40 mg by mouth daily. [facility] omeprazole 40 mg capsule 2018-09 00:11: 42 Yes 40mg Take 40 mg by mouth daily. [facility] omeprazole 40 mg capsule 2018-09 00:11: 42 Yes 40mg Take 40 mg by mouth daily. [facility] omeprazole 40 mg capsule 2018-09 00:11: 42 Yes 40mg Take 40 mg by mouth daily. [facility] omeprazole 40 mg capsule 2018-09 00:11: 42 Yes 40mg Take 40 mg by mouth daily. [facility] omeprazole 40 mg capsule 2018-09 00:11: 42 Yes 40mg Take 40 mg by mouth daily. [facility] omeprazole 40 mg capsule 2018-09 00:11: 42 Yes 40mg Take 40 mg by mouth daily. [facility] omeprazole 40 mg capsule 2018-09 00:11: 42 Yes 40mg Take 40 mg by mouth daily. [facility] KCL 20 mEq tablet 2018-09 00:00: 00 Yes [id number] 40meq Take 2 tablets by mouth daily. [facility] KCL 20 mEq tablet 2018-09 00:00: 00 Yes [id number] 40meq Take 2 tablets by mouth daily. [facility] atorvastati n 20 mg tablet 2018-09 00:00: 00 Yes [id number] 20mg Take 1 tablet by mouth at bedtime. [facility] metoprolol succinate XL 50 mg 24 hr tablet 2018-09 00:00: 00 Yes [id number] 50mg Take 1 tablet by mouth 2 (two) times daily. [facility] furosemide 40 mg tablet 2018-09 00:00: 00 Yes [id number] 40mg Take 1 tablet by mouth every morning and evening. [facility] KCL 20 mEq tablet 2018-09 00:00: 00 Yes [id number] 40meq Take 2 tablets by mouth daily. [facility] atorvastati n 20 mg tablet 2018-09 00:00: 00 Yes [id number] 20mg Take 1 tablet by mouth at bedtime. [facility] metoprolol succinate XL 50 mg 24 hr tablet 2018-09 00:00: 00 Yes [id number] 50mg Take 1 tablet by mouth 2 (two) times daily. [facility] furosemide 40 mg tablet 2018-09 00:00: 00 Yes [id number] 40mg Take 1 tablet by mouth every morning and evening. [facility] KCL 20 mEq tablet 2018-09 00:00: 00 Yes [id number] 40meq Take 2 tablets by mouth daily. [facility] atorvastati n 20 mg tablet 2018-09 00:00: 00 Yes [id number] 20mg Take 1 tablet by mouth at bedtime. [facility] metoprolol succinate XL 50 mg 24 hr tablet 2018-09 00:00: 00 Yes [id number] 50mg Take 1 tablet by mouth 2 (two) times daily. [facility] furosemide 40 mg tablet 2018-09 00:00: 00 Yes [id number] 40mg Take 1 tablet by mouth every morning and evening. [facility] KCL 20 mEq tablet 2018-09 00:00: 00 Yes [id number] 40meq Take 2 tablets by mouth daily. [facility] atorvastati n 20 mg tablet 2018-09 00:00: 00 Yes [id number] 20mg Take 1 tablet by mouth at bedtime. [facility] metoprolol succinate XL 50 mg 24 hr tablet 2018-09 00:00: 00 Yes [id number] 50mg Take 1 tablet by mouth 2 (two) times daily. [facility] furosemide 40 mg tablet 2018-09 00:00: 00 Yes [id number] 40mg Take 1 tablet by mouth every morning and evening. [facility] KCL 20 mEq tablet 2018-09 00:00: 00 Yes [id number] 40meq Take 2 tablets by mouth daily. [facility] atorvastati n 20 mg tablet 2018-09 00:00: 00 Yes [id number] 20mg Take 1 tablet by mouth at bedtime. [facility] metoprolol succinate XL 50 mg 24 hr tablet 2018-09 00:00: 00 Yes [id number] 50mg Take 1 tablet by mouth 2 (two) times daily. [facility] furosemide 40 mg tablet 2018-09 00:00: 00 Yes [id number] 40mg Take 1 tablet by mouth every morning and evening. [facility] KCL 20 mEq tablet 2018-09 00:00: 00 Yes [id number] 40meq Take 2 tablets by mouth daily. [facility] atorvastati n 20 mg tablet 2018-09 00:00: 00 Yes [id number] 20mg Take 1 tablet by mouth at bedtime. [facility] metoprolol succinate XL 50 mg 24 hr tablet 2018-09 00:00: 00 Yes [id number] 50mg Take 1 tablet by mouth 2 (two) times daily. [facility] furosemide 40 mg tablet 2018-09 00:00: 00 Yes [id number] 40mg Take 1 tablet by mouth every morning and evening. [facility] KCL 20 mEq tablet 2018-09 00:00: 00 Yes [id number] 40meq Take 2 tablets by mouth daily. [facility] KCL 20 mEq tablet 2018-09 00:00: 00 Yes [id number] 40meq Take 2 tablets by mouth daily. [facility] KCL 20 mEq tablet 2018-09 00:00: 00 Yes [id number] 40meq Take 2 tablets by mouth daily. [facility] KCL 20 mEq tablet 2018-09 00:00: 00 Yes [id number] 40meq Take 2 tablets by mouth daily. [facility] KCL 20 mEq tablet 2018-09 00:00: 00 Yes [id number] 40meq Take 2 tablets by mouth daily. [facility] KCL 20 mEq tablet 2018-09 00:00: 00 Yes [id number] 40meq Take 2 tablets by mouth daily. [facility] KCL 20 mEq tablet 2018-09 00:00: 00 Yes [id number] 40meq Take 2 tablets by mouth daily. [facility] KCL 20 mEq tablet 2018-09 00:00: 00 Yes [id number] 40meq Take 2 tablets by mouth daily. [facility] KCL 20 mEq tablet 2018-09 00:00: 00 Yes [id number] 40meq Take 2 tablets by mouth daily. [facility] KCL 20 mEq tablet 2018-09 00:00: 00 Yes [id number] 40meq Take 2 tablets by mouth daily. [facility] KCL 20 mEq tablet 2018-09 00:00: 00 Yes [id number] 40meq Take 2 tablets by mouth daily. [facility] KCL 20 mEq tablet 2018-09 00:00: 00 Yes [id number] 40meq Take 2 tablets by mouth daily. [facility] KCL 20 mEq tablet 2018-09 00:00: 00 Yes [id number] 40meq Take 2 tablets by mouth daily. [facility] KCL 20 mEq tablet 2018-09 00:00: 00 Yes [id number] 40meq Take 2 tablets by mouth daily. [facility] KCL 20 mEq tablet 2018-09 00:00: 00 Yes [id number] 40meq Take 2 tablets by mouth daily. [facility] KCL 20 mEq tablet 2018-09 00:00: 00 Yes [id number] 40meq Take 2 tablets by mouth daily. [facility] KCL 20 mEq tablet 2018-09 00:00: 00 Yes [id number] 40meq Take 2 tablets by mouth daily. [facility] KCL 20 mEq tablet 2018-09 00:00: 00 Yes [id number] 40meq Take 2 tablets by mouth daily. [facility] KCL 20 mEq tablet 2018-09 00:00: 00 Yes [id number] 40meq Take 2 tablets by mouth daily. [facility] KCL 20 mEq tablet 2018-09 00:00: 00 11-28 00:00 :00 No [id number] 40meq Take 2 tablets by mouth daily. [facility] atorvastati n 20 mg tablet 2018-09 00:00: 00 12-12 00:00 :00 No [id number] 20mg Take 1 tablet by mouth at bedtime. [facility] metoprolol succinate XL 50 mg 24 hr tablet 2018-09 00:00: 00 12-12 00:00 :00 No [id number] 50mg Take 1 tablet by mouth 2 (two) times daily. [facility] furosemide 40 mg tablet 2018-09 00:00: 00 12-12 00:00 :00 No [id number] 40mg Take 1 tablet by mouth every morning and evening. [facility] ipratropium -albuterol (DUONEB) 0.5 mg-3 mg(2.5 mg base)/3 mL nebulizer solution 3 mL 05-04 13:00: 00 Yes 3mL 3 mL, Inhalation , QID, First dose on Tue05/04/19 at 0800, Until Discontinu ed, Routine [facility] ibuprofen 600 mg tablet 02-16 00:00: 00 Yes [id number] 600mg Take 1 tablet by mouth every 8 (eight) hours as needed (PAIN). [facility] ibuprofen 600 mg tablet 02-16 00:00: 00 Yes [id number] 600mg Take 1 tablet by mouth every 8 (eight) hours as needed (pain). [facility] ibuprofen 600 mg tablet 02-16 00:00: 00 05-03 00:00 :00 No [id number] 600mg Take 1 tablet by mouth every 8 (eight) hours as needed (PAIN). [facility] ibuprofen 600 mg tablet 02-16 00:00: 00 05-03 00:00 :00 No [id number] 600mg Take 1 tablet by mouth every 8 (eight) hours as needed (pain). [facility] magnesium oxide (MAG-OX 400) 400 mg tablet 11-11 00:00: 00 Yes 400mg Take 1 Tab by mouth 3 (three) times daily. [facility] enalapril (VASOTEC) 2.5 mg tablet 11-11 00:00: 00 Yes [id number] 2.5mg Take 1 Tab by mouth 2 (two) times daily. [facility] pantoprazol e (PROTONIX) 40 mg EC tablet 11-11 00:00: 00 Yes 40mg Take 1 Tab by mouth daily. [facility] KCL (KLOR-CON M20) 20 mEq tablet 11-11 00:00: 00 Yes 20meq Take 1 Tab by mouth daily. [facility] furosemide (LASIX) 40 mg tablet 11-11 00:00: 00 Yes [id number] 40mg Take 1 Tab by mouth 2 (two) times daily. [facility] metoprolol succinate XL (TOPROL XL) 100 mg 24 hr tablet 11-11 00:00: 00 Yes 100mg Take 1 Tab by mouth daily. [facility] magnesium oxide (MAG-OX 400) 400 mg tablet 11-11 00:00: 00 05-03 00:00 :00 No 400mg Take 1 Tab by mouth 3 (three) times daily. [facility] enalapril (VASOTEC) 2.5 mg tablet 11-11 00:00: 00 05-03 00:00 :00 No [id number] 2.5mg Take 1 Tab by mouth 2 (two) times daily. [facility] pantoprazol e (PROTONIX) 40 mg EC tablet 11-11 00:00: 00 05-03 00:00 :00 No 40mg Take 1 Tab by mouth daily. [facility] KCL (KLOR-CON M20) 20 mEq tablet 11-11 00:00: 00 05-03 00:00 :00 No 20meq Take 1 Tab by mouth daily. [facility] furosemide (LASIX) 40 mg tablet 11-11 00:00: 00 05-03 00:00 :00 No [id number] 40mg Take 1 Tab by mouth 2 (two) times daily. [facility] metoprolol succinate XL (TOPROL XL) 100 mg 24 hr tablet 11-11 00:00: 00 05-03 00:00 :00 No 100mg Take 1 Tab by mouth daily. [facility] aspirin 81 mg chewable tablet 2013-09 00:00: 00 Yes 81mg Take 1 Tab by mouth daily. [facility] ipratropium (ATROVENT) 0.02 % nebulizer solution 2013-09 00:00: 00 Yes .5mg Inhale 2.5 mL 4 (four) times daily. [facility] levalbutero l (XOPENEX) 0.31 mg/3 mL nebulizer solution 2013-09 00:00: 00 Yes .31mg Inhale 0.31 mg 3 (three) times daily. [facility] aspirin 81 mg chewable tablet 2013-09 00:00: 00 Yes 81mg Take 1 Tab by mouth daily. [facility] ipratropium (ATROVENT) 0.02 % nebulizer solution 2013-09 00:00: 00 Yes .5mg Inhale 2.5 mL 4 (four) times daily. [facility] levalbutero l (XOPENEX) 0.31 mg/3 mL nebulizer solution 2013-09 00:00: 00 Yes .31mg Inhale 0.31 mg 3 (three) times daily. [facility] 2013-09 00:00: 00 Yes 81mg Take 1 Tab by mouth daily. [facility] (ATROVENT) 0.02 % nebulizer solution 2013-09 00:00: 00 Yes .5mg Inhale 2.5 mL 4 (four) times daily. [facility] levalbutero l (XOPENEX) 0.31 mg/3 mL nebulizer solution 2013-09 00:00: 00 Yes .31mg Inhale 0.31 mg 3 (three) times daily. [facility] aspirin 81 mg chewable tablet 2013-09 00:00: 00 Yes 81mg Take 1 Tab by mouth daily. [facility] (ATROVENT) 0.02 % nebulizer solution 2013-09 00:00: 00 Yes .5mg Inhale 2.5 mL 4 (four) times daily. [facility] levalbutero l (XOPENEX) 0.31 mg/3 mL nebulizer solution 2013-09 00:00: 00 Yes .31mg Inhale 0.31 mg 3 (three) times daily. [facility] mg chewable tablet 2013-09 00:00: 00 Yes 81mg Take 1 Tab by mouth daily. [facility] (ATROVENT) 0.02 % nebulizer solution 2013-09 00:00: 00 Yes .5mg Inhale 2.5 mL 4 (four) times daily. [facility] levalbutero l (XOPENEX) 0.31 mg/3 mL nebulizer solution 2013-09 00:00: 00 Yes .31mg Inhale 0.31 mg 3 (three) times daily. [facility] aspirin 81 mg chewable tablet 2013-09 00:00: 00 Yes 81mg Take 1 Tab by mouth daily. [facility] ipratropium (ATROVENT) 0.02 % nebulizer solution 2013-09 00:00: 00 Yes .5mg Inhale 2.5 mL 4 (four) times daily. [facility] levalbutero l (XOPENEX) 0.31 mg/3 mL nebulizer solution 2013-09 00:00: 00 Yes .31mg Inhale 0.31 mg 3 (three) times daily. [facility] aspirin 81 mg chewable tablet 2013-09 00:00: 00 Yes 81mg Take 1 Tab by mouth daily. [facility] ipratropium (ATROVENT) 0.02 % nebulizer solution 2013-09 00:00: 00 Yes .5mg Inhale 2.5 mL 4 (four) times daily. [facility] levalbutero l (XOPENEX) 0.31 mg/3 mL nebulizer solution 2013-09 00:00: 00 Yes .31mg Inhale 0.31 mg 3 (three) times daily. [facility] aspirin 81 mg chewable tablet 2013-09 00:00: 00 Yes 81mg Take 1 Tab by mouth daily. [facility] ipratropium (ATROVENT) 0.02 % nebulizer solution 2013-09 00:00: 00 Yes .5mg Inhale 2.5 mL 4 (four) times daily. [facility] levalbutero l (XOPENEX) 0.31 mg/3 mL nebulizer solution 2013-09 00:00: 00 Yes .31mg Inhale 0.31 mg 3 (three) times daily. [facility] aspirin 81 mg chewable tablet 2013-09 00:00: 00 Yes 81mg Take 1 Tab by mouth daily. [facility] ipratropium (ATROVENT) 0.02 % nebulizer solution 2013-09 00:00: 00 Yes .5mg Inhale 2.5 mL 4 (four) times daily. [facility] levalbutero l (XOPENEX) 0.31 mg/3 mL nebulizer solution 2013-09 00:00: 00 Yes .31mg Inhale 0.31 mg 3 (three) times daily. [facility] aspirin 81 mg chewable tablet 2013-09 00:00: 00 Yes 81mg Take 1 Tab by mouth daily. [facility] ([facility]OVENT) 0.02 % nebulizer solution 2013-09 00:00: 00 Yes .5mg Inhale 2.5 mL 4 (four) times daily. [facility] leval[facility] (XOPENEX) 0.31 mg/3 mL nebulizer solution 2013-09 00:00: 00 Yes .31mg Inhale 0.31 mg 3 (three) times daily. [facility] aspirin 81 mg chewable tablet 2013-09 00:00: 00 Yes 81mg Take 1 Tab by mouth daily. [facility] ipratropium (ATROVENT) 0.02 % nebulizer solution 2013-09 00:00: 00 Yes .5mg Inhale 2.5 mL 4 (four) times daily. [facility] levalbutero l (XOPENEX) 0.31 mg/3 mL nebulizer solution 2013-09 00:00: 00 Yes .31mg Inhale 0.31 mg 3 (three) times daily. [facility] aspirin 81 mg chewable tablet 2013-09 00:00: 00 Yes 81mg Take 1 Tab by mouth daily. [facility] ipratropium (ATROVENT) 0.02 % nebulizer solution 2013-09 00:00: 00 Yes .5mg Inhale 2.5 mL 4 (four) times daily. [facility] levalbutero l (XOPENEX) 0.31 mg/3 mL nebulizer solution 2013-09 00:00: 00 Yes .31mg Inhale 0.31 mg 3 (three) times daily. [facility] aspirin 81 mg chewable tablet 2013-09 00:00: 00 Yes 81mg Take 1 Tab by mouth daily. [facility] ipratropium (ATROVENT) 0.02 % nebulizer solution 2013-09 00:00: 00 Yes .5mg Inhale 2.5 mL 4 (four) times daily. [facility] levalbutero l (XOPENEX) 0.31 mg/3 mL nebulizer solution 2013-09 00:00: 00 Yes .31mg Inhale 0.31 mg 3 (three) times daily. [facility] aspirin 81 mg chewable tablet 2013-09 00:00: 00 Yes 81mg Take 1 Tab by mouth daily. [facility] ipratropium (ATROVENT) 0.02 % nebulizer solution 2013-09 00:00: 00 Yes .5mg Inhale 2.5 mL 4 (four) times daily. [facility] levalbutero l (XOPENEX) 0.31 mg/3 mL nebulizer solution 2013-09 00:00: 00 Yes .31mg Inhale 0.31 mg 3 (three) times daily. [facility] aspirin 81 mg chewable tablet 2013-09 00:00: 00 Yes 81mg Take 1 Tab by mouth daily. [facility] ipratropium (ATROVENT) 0.02 % nebulizer solution 2013-09 00:00: 00 Yes .5mg Inhale 2.5 mL 4 (four) times daily. [facility] levalbutero l (XOPENEX) 0.31 mg/3 mL nebulizer solution 2013-09 00:00: 00 Yes .31mg Inhale 0.31 mg 3 (three) times daily. [facility] aspirin 81 mg chewable tablet 2013-09 00:00: 00 Yes 81mg Take 1 Tab by mouth daily. [facility] ipratropium (ATROVENT) 0.02 % nebulizer solution 2013-09 00:00: 00 Yes .5mg Inhale 2.5 mL 4 (four) times daily. [facility] levalbutero l (XOPENEX) 0.31 mg/3 mL nebulizer solution 2013-09 00:00: 00 Yes .31mg Inhale 0.31 mg 3 (three) times daily. [facility] aspirin 81 mg chewable tablet 2013-09 00:00: 00 Yes 81mg Take 1 Tab by mouth daily. [facility] ipratropium (ATROVENT) 0.02 % nebulizer solution 2013-09 00:00: 00 Yes .5mg Inhale 2.5 mL 4 (four) times daily. [facility] levalbutero l (XOPENEX) 0.31 mg/3 mL nebulizer solution 2013-09 00:00: 00 Yes .31mg Inhale 0.31 mg 3 (three) times daily. [facility] aspirin 81 mg chewable tablet 2013-09 00:00: 00 Yes 81mg Take 1 Tab by mouth daily. [facility] ipratropium (ATROVENT) 0.02 % nebulizer solution 2013-09 00:00: 00 Yes .5mg Inhale 2.5 mL 4 (four) times daily. [facility] levalbutero l (XOPENEX) 0.31 mg/3 mL nebulizer solution 2013-09 00:00: 00 Yes .31mg Inhale 0.31 mg 3 (three) times daily. [facility] aspirin 81 mg chewable tablet 2013-09 00:00: 00 Yes 81mg Take 1 Tab by mouth daily. [facility] ipratropium (ATROVENT) 0.02 % nebulizer solution 2013-09 00:00: 00 Yes .5mg Inhale 2.5 mL 4 (four) times daily. [facility] levalbutero l (XOPENEX) 0.31 mg/3 mL nebulizer solution 2013-09 00:00: 00 Yes .31mg Inhale 0.31 mg 3 (three) times daily. [facility] aspirin 81 mg chewable tablet 2013-09 00:00: 00 Yes 81mg Take 1 Tab by mouth daily. [facility] ipratropium (ATROVENT) 0.02 % nebulizer solution 2013-09 00:00: 00 Yes .5mg Inhale 2.5 mL 4 (four) times daily. [facility] levalbutero l (XOPENEX) 0.31 mg/3 mL nebulizer solution 2013-09 00:00: 00 Yes .31mg Inhale 0.31 mg 3 (three) times daily. [facility] mg chewable tablet 2013-09 00:00: 00 Yes 81mg Take 1 Tab by mouth daily. [facility] ipratropium (ATROVENT) 0.02 % nebulizer solution 2013-09 00:00: 00 Yes .5mg Inhale 2.5 mL 4 (four) times daily. [facility] levalbutero l (XOPENEX) 0.31 mg/3 mL nebulizer solution 2013-09 00:00: 00 Yes .31mg Inhale 0.31 mg 3 (three) times daily. [facility] aspirin 81 mg chewable tablet 2013-09 00:00: 00 Yes 81mg Take 1 Tab by mouth daily. [facility] ipratropium (ATROVENT) 0.02 % nebulizer solution 2013-09 00:00: 00 Yes .5mg Inhale 2.5 mL 4 (four) times daily. [facility] levalbutero l (XOPENEX) 0.31 mg/3 mL nebulizer solution 2013-09 00:00: 00 Yes .31mg Inhale 0.31 mg 3 (three) times daily. [facility] mg chewable tablet 2013-09 00:00: 00 Yes 81mg Take 1 Tab by mouth daily. [facility] ipratropium (ATROVENT) 0.02 % nebulizer solution 2013-09 00:00: 00 Yes .5mg Inhale 2.5 mL 4 (four) times daily. [facility] levalbutero l (XOPENEX) 0.31 mg/3 mL nebulizer solution 2013-09 00:00: 00 Yes .31mg Inhale 0.31 mg 3 (three) times daily. [facility] aspirin 81 mg chewable tablet 2013-09 00:00: 00 Yes 81mg Take 1 Tab by mouth daily. [facility] ipratropium (ATROVENT) 0.02 % nebulizer solution 2013-09 00:00: 00 Yes .5mg Inhale 2.5 mL 4 (four) times daily. [facility] (XOPENEX) 0.31 mg/3 mL nebulizer solution 2013-09 00:00: 00 Yes .31mg Inhale 0.31 mg 3 (three) times daily. [facility] aspirin 81 mg chewable tablet 2013-09 00:00: 00 Yes 81mg Take 1 Tab by mouth daily. [facility] ipratropium (ATROVENT) 0.02 % nebulizer solution 2013-09 00:00: 00 Yes .5mg Inhale 2.5 mL 4 (four) times daily. [facility] levalbutero l (XOPENEX) 0.31 mg/3 mL nebulizer solution 2013-09 00:00: 00 Yes .31mg Inhale 0.31 mg 3 (three) times daily. [facility] aspirin 81 mg chewable tablet 2013-09 00:00: 00 Yes 81mg Take 1 Tab by mouth daily. [facility] ipratropium (ATROVENT) 0.02 % nebulizer solution 2013-09 00:00: 00 Yes .5mg Inhale 2.5 mL 4 (four) times daily. [facility] levalbutero l (XOPENEX) 0.31 mg/3 mL nebulizer solution 2013-09 00:00: 00 Yes .31mg Inhale 0.31 mg 3 (three) times daily. [facility] aspirin 81 mg chewable tablet 2013-09 00:00: 00 Yes 81mg Take 1 Tab by mouth daily. [facility] ipratropium (ATROVENT) 0.02 % nebulizer solution 2013-09 00:00: 00 Yes .5mg Inhale 2.5 mL 4 (four) times daily. [facility] levalbutero l (XOPENEX) 0.31 mg/3 mL nebulizer solution 2013-09 00:00: 00 Yes .31mg Inhale 0.31 mg 3 (three) times daily. [facility] aspirin 81 mg chewable tablet 2013-09 00:00: 00 Yes 81mg Take 1 Tab by mouth daily. [facility] ipratropium (ATROVENT) 0.02 % nebulizer solution 2013-09 00:00: 00 Yes .5mg Inhale 2.5 mL 4 (four) times daily. [facility] levalbutero l (XOPENEX) 0.31 mg/3 mL nebulizer solution 2013-09 00:00: 00 Yes .31mg Inhale 0.31 mg 3 (three) times daily. [facility] aspirin 81 mg chewable tablet 2013-09 00:00: 00 11-28 00:00 :00 No 81mg Take 1 Tab by mouth daily. [facility] ipratropium (ATROVENT) 0.02 % nebulizer solution 2013-09 00:00: 00 11-28 00:00 :00 No .5mg Inhale 2.5 mL 4 (four) times daily. [facility] levalbutero l (XOPENEX) 0.31 mg/3 mL nebulizer solution 2013-09 00:00: 00 11-28 00:00 :00 No .31mg Inhale 0.31 mg 3 (three) times daily. [facility] Immunizations Ordered Immunization Name Filled Immunization Name Date Status Comments Source Pneumococcal 20 Conjugate, PCV20 (Prevnar 20) 2022-12-12 00:00:00 Completed [facility] Pneumococcal 20 Conjugate, PCV20 (Prevnar 20) 2022-12-12 00:00:00 Completed [facility] Pneumococcal 20 Conjugate, PCV20 (Prevnar 20) 2022-12-12 00:00:00 Completed [facility] Pneumococcal 20 Conjugate, PCV20 (Prevnar 20) 2022-12-12 00:00:00 Completed [facility] Pneumococcal 20 Conjugate, PCV20 (Prevnar 20) 2022-12-12 00:00:00 Completed [facility] Pneumococcal 20 Conjugate, PCV20 (Prevnar 20) 2022-12-12 00:00:00 Completed [facility] Pneumococcal 20 Conjugate, PCV20 (Prevnar 20) 2022-12-12 00:00:00 Completed [facility] Pneumococcal 20 Conjugate, PCV20 (Prevnar 20) 2022-12-12 00:00:00 Completed [facility] Pneumococcal 20 Conjugate, PCV20 (Prevnar 20) 2022-12-12 00:00:00 Completed [facility] Pneumococcal 20 Conjugate, PCV20 (Prevnar 20) 2022-12-12 00:00:00 Completed [facility] Pneumococcal 20 Conjugate, PCV20 (Prevnar 20) 2022-12-12 00:00:00 Completed [facility] Pneumococcal 20 Conjugate, PCV20 (Prevnar 20) 2022-12-12 00:00:00 Completed [facility] Pneumococcal 20 Conjugate, PCV20 (Prevnar 20) 2022-12-12 00:00:00 Completed [facility] Pneumococcal 20 Conjugate, PCV20 (Prevnar 20) 2022-12-12 00:00:00 Completed [facility] Pneumococcal 20 Conjugate, PCV20 (Prevnar 20) 2022-12-12 00:00:00 Completed [facility] Pneumococcal 20 Conjugate, PCV20 (Prevnar 20) 2022-12-12 00:00:00 Completed [facility] Pneumococcal 20 Conjugate, PCV20 (Prevnar 20) 2022-12-12 00:00:00 Completed [facility] Pneumococcal 20 Conjugate, PCV20 (Prevnar 20) 2022-12-12 00:00:00 Completed [facility] Pneumococcal 20 Conjugate, PCV20 (Prevnar 20) 2022-12-12 00:00:00 Completed [facility] Pneumococcal 20 Conjugate, PCV20 (Prevnar 20) 2022-12-12 00:00:00 Completed [facility] Pneumococcal 20 Conjugate, PCV20 (Prevnar 20) 2022-12-12 00:00:00 Completed [facility] Pneumococcal 20 Conjugate, PCV20 (Prevnar 20) 2022-12-12 00:00:00 Completed [facility] Pneumococcal 20 Conjugate, PCV20 (Prevnar 20) 2022-12-12 00:00:00 Completed [facility] Pneumococcal 20 Conjugate, PCV20 (Prevnar 20) 2022-12-12 00:00:00 Completed [facility] Pneumococcal 20 Conjugate, PCV20 (Prevnar 20) 2022-12-12 00:00:00 Completed [facility] Pneumococcal 20 Conjugate, PCV20 (Prevnar 20) 2022-12-12 00:00:00 Completed [facility] Pneumococcal 20 Conjugate, PCV20 (Prevnar 20) 2022-12-12 00:00:00 Completed [facility] Pneumococcal 20 Conjugate, PCV20 (Prevnar 20) 2022-12-12 00:00:00 Completed [facility] Pneumococcal 20 Conjugate, PCV20 (Prevnar 20) 2022-12-12 00:00:00 Completed [facility] Pneumococcal 20 Conjugate, PCV20 (Prevnar 20) 2022-12-12 00:00:00 Completed [facility] Pneumococcal 20 Conjugate, PCV20 (Prevnar 20) 2022-12-12 00:00:00 Completed [facility] Pneumococcal 20 Conjugate, PCV20 (Prevnar 20) 2022-12-12 00:00:00 Completed [facility] Pneumococcal 20 Conjugate, PCV20 (Prevnar 20) 2022-12-12 00:00:00 Completed [facility] Pneumococcal 20 Conjugate, PCV20 (Prevnar 20) 2022-12-12 00:00:00 Completed [facility] Pneumococcal 20 Conjugate, PCV20 (Prevnar 20) 2022-12-12 00:00:00 Completed [facility] Pneumococcal 20 Conjugate, PCV20 (Prevnar 20) 2022-12-12 00:00:00 Completed [facility] SARS-COV-2 COVID-19 MODERNA 12+ YRS VACCINE 2020-11-23 00:00:00 Completed [facility] SARS-COV-2 COVID-19 MODERNA VACCINE 2020-11-23 00:00:00 Completed [facility] SARS-COV-2 COVID-19 MODERNA 12+ YRS VACCINE 2020-11-23 00:00:00 Completed [facility] SARS-COV-2 COVID-19 MODERNA 12+ YRS VACCINE 2020-11-23 00:00:00 Completed [facility] SARS-COV-2 COVID-19 MODERNA 12+ YRS VACCINE 2020-11-23 00:00:00 Completed [facility] SARS-COV-2 COVID-19 MODERNA 12+ YRS VACCINE 2020-11-23 00:00:00 Completed [facility] SARS-COV-2 COVID-19 MODERNA 12+ YRS VACCINE 2020-11-23 00:00:00 Completed [facility] SARS-COV-2 COVID-19 MODERNA VACCINE 2020-11-23 00:00:00 Completed [facility] SARS-COV-2 COVID-19 MODERNA 12+ YRS VACCINE 2020-11-23 00:00:00 Completed [facility] SARS-COV-2 COVID-19 MODERNA 12+ YRS VACCINE 2020-11-23 00:00:00 Completed [facility] SARS-COV-2 COVID-19 MODERNA 12+ YRS VACCINE 2020-11-23 00:00:00 Completed [facility] SARS-COV-2 COVID-19 MODERNA 12+ YRS VACCINE 2020-11-23 00:00:00 Completed [facility] SARS-COV-2 COVID-19 MODERNA 12+ YRS VACCINE 2020-11-23 00:00:00 Completed [facility] SARS-COV-2 COVID-19 MODERNA 12+ YRS VACCINE 2020-11-23 00:00:00 Completed [facility] SARS-COV-2 COVID-19 MODERNA VACCINE 2020-11-23 00:00:00 Completed [facility] SARS-COV-2 COVID-19 MODERNA 12+ YRS VACCINE 2020-11-23 00:00:00 Completed [facility] SARS-COV-2 COVID-19 MODERNA 12+ YRS VACCINE 2020-11-23 00:00:00 Completed [facility] SARS-COV-2 COVID-19 MODERNA 12+ YRS VACCINE 2020-11-23 00:00:00 Completed [facility] SARS-COV-2 COVID-19 MODERNA 12+ YRS VACCINE 2020-11-23 00:00:00 Completed [facility] SARS-COV-2 COVID-19 MODERNA 12+ YRS VACCINE 2020-11-23 00:00:00 Completed [facility] SARS-COV-2 COVID-19 MODERNA 12+ YRS VACCINE 2020-11-23 00:00:00 Completed [facility] SARS-COV-2 COVID-19 MODERNA 12+ YRS VACCINE 2020-11-23 00:00:00 Completed [facility] SARS-COV-2 COVID-19 MODERNA 12+ YRS VACCINE 2020-11-23 00:00:00 Completed [facility] SARS-COV-2 COVID-19 MODERNA 12+ YRS VACCINE 2020-11-23 00:00:00 Completed [facility] SARS-COV-2 COVID-19 MODERNA 12+ YRS VACCINE 2020-11-23 00:00:00 Completed [facility] SARS-COV-2 COVID-19 MODERNA 12+ YRS VACCINE 2020-11-23 00:00:00 Completed [facility] SARS-COV-2 COVID-19 MODERNA 12+ YRS VACCINE 2020-11-23 00:00:00 Completed [facility] SARS-COV-2 COVID-19 MODERNA 12+ YRS VACCINE 2020-11-23 00:00:00 Completed [facility] SARS-COV-2 COVID-19 MODERNA 12+ YRS VACCINE 2020-11-23 00:00:00 Completed [facility] SARS-COV-2 COVID-19 MODERNA 12+ YRS VACCINE 2020-11-23 00:00:00 Completed [facility] SARS-COV-2 COVID-19 MODERNA 12+ YRS VACCINE 2020-11-23 00:00:00 Completed [facility] SARS-COV-2 COVID-19 MODERNA 12+ YRS VACCINE 2020-11-23 00:00:00 Completed [facility] SARS-COV-2 COVID-19 MODERNA 12+ YRS VACCINE 2020-11-23 00:00:00 Completed [facility] SARS-COV-2 COVID-19 MODERNA 12+ YRS VACCINE 2020-11-23 00:00:00 Completed [facility] SARS-COV-2 COVID-19 MODERNA VACCINE 2020-11-23 00:00:00 Completed [facility] SARS-COV-2 COVID-19 MODERNA 12+ YRS VACCINE 2020-11-23 00:00:00 Completed [facility] SARS-COV-2 COVID-19 MODERNA 12+ YRS VACCINE 2020-11-23 00:00:00 Completed [facility] SARS-COV-2 COVID-19 MODERNA 12+ YRS VACCINE 2020-11-23 00:00:00 Completed [facility] SARS-COV-2 COVID-19 MODERNA 12+ YRS VACCINE 2020-11-23 00:00:00 Completed [facility] SARS-COV-2 COVID-19 MODERNA 12+ YRS VACCINE 2020-11-23 00:00:00 Completed [facility] SARS-COV-2 COVID-19 MODERNA VACCINE 2020-11-23 00:00:00 Completed [facility] SARS-COV-2 COVID-19 MODERNA 12+ YRS VACCINE 2020-11-23 00:00:00 Completed [facility] SARS-COV-2 COVID-19 MODERNA 12+ YRS VACCINE 2020-11-23 00:00:00 Completed [facility] SARS-COV-2 COVID-19 MODERNA 12+ YRS VACCINE 2020-11-23 00:00:00 Completed [facility] SARS-COV-2 COVID-19 MODERNA 12+ YRS VACCINE 2020-11-23 00:00:00 Completed [facility] SARS-COV-2 COVID-19 MODERNA 12+ YRS VACCINE 2020-11-23 00:00:00 Completed [facility] SARS-COV-2 COVID-19 MODERNA VACCINE 2020-11-23 00:00:00 Completed [facility] SARS-COV-2 COVID-19 MODERNA VACCINE 2020-11-23 00:00:00 Completed [facility] SARS-COV-2 COVID-19 MODERNA VACCINE 2020-11-23 00:00:00 Completed [facility] SARS-COV-2 COVID-19 MODERNA VACCINE 2020-11-23 00:00:00 Completed [facility] SARS-COV-2 COVID-19 MODERNA VACCINE 2020-11-23 00:00:00 Completed [facility] SARS-COV-2 COVID-19 MODERNA VACCINE 2020-11-23 00:00:00 Completed [facility] SARS-COV-2 COVID-19 MODERNA VACCINE 2020-11-23 00:00:00 Completed [facility] SARS-COV-2 COVID-19 MODERNA VACCINE 2020-11-23 00:00:00 Completed [facility] SARS-COV-2 COVID-19 MODERNA VACCINE 2020-11-23 00:00:00 Completed [facility] SARS-COV-2 COVID-19 MODERNA VACCINE 2020-11-23 00:00:00 Completed [facility] SARS-COV-2 COVID-19 MODERNA VACCINE 2020-11-23 00:00:00 Completed [facility] SARS-COV-2 COVID-19 MODERNA VACCINE 2020-11-23 00:00:00 Completed [facility] SARS-COV-2 COVID-19 MODERNA VACCINE 2020-11-23 00:00:00 Completed [facility] SARS-COV-2 COVID-19 MODERNA VACCINE 2020-11-23 00:00:00 Completed [facility] SARS-COV-2 COVID-19 MODERNA 12+ YRS VACCINE 2020-11-23 00:00:00 Completed [facility] SARS-COV-2 COVID-19 MODERNA 12+ YRS VACCINE 2020-11-23 00:00:00 Completed [facility] SARS-COV-2 COVID-19 MODERNA 12+ YRS VACCINE 2020-11-23 00:00:00 Completed [facility] SARS-COV-2 COVID-19 MODERNA 12+ YRS VACCINE 2020-11-23 00:00:00 Completed [facility] SARS-COV-2 COVID-19 MODERNA VACCINE 2020-11-23 00:00:00 Completed [facility] SARS-COV-2 COVID-19 MODERNA 12+ YRS VACCINE 2020-11-23 00:00:00 Completed [facility] SARS-COV-2 COVID-19 MODERNA 12+ YRS VACCINE 2020-11-23 00:00:00 Completed [facility] SARS-COV-2 COVID-19 MODERNA 12+ YRS VACCINE 2020-11-23 00:00:00 Completed [facility] SARS-COV-2 COVID-19 MODERNA VACCINE 2020-10-26 00:00:00 Completed [facility] SARS-COV-2 COVID-19 MODERNA 12+ YRS VACCINE 2020-10-26 00:00:00 Completed [facility] SARS-COV-2 COVID-19 MODERNA 12+ YRS VACCINE 2020-10-26 00:00:00 Completed [facility] SARS-COV-2 COVID-19 MODERNA 12+ YRS VACCINE 2020-10-26 00:00:00 Completed [facility] SARS-COV-2 COVID-19 MODERNA 12+ YRS VACCINE 2020-10-26 00:00:00 Completed [facility] SARS-COV-2 COVID-19 MODERNA 12+ YRS VACCINE 2020-10-26 00:00:00 Completed [facility] SARS-COV-2 COVID-19 MODERNA VACCINE 2020-10-26 00:00:00 Completed [facility] SARS-COV-2 COVID-19 MODERNA 12+ YRS VACCINE 2020-10-26 00:00:00 Completed [facility] SARS-COV-2 COVID-19 MODERNA 12+ YRS VACCINE 2020-10-26 00:00:00 Completed [facility] SARS-COV-2 COVID-19 MODERNA 12+ YRS VACCINE 2020-10-26 00:00:00 Completed [facility] SARS-COV-2 COVID-19 MODERNA 12+ YRS VACCINE 2020-10-26 00:00:00 Completed [facility] SARS-COV-2 COVID-19 MODERNA 12+ YRS VACCINE 2020-10-26 00:00:00 Completed [facility] SARS-COV-2 COVID-19 MODERNA 12+ YRS VACCINE 2020-10-26 00:00:00 Completed [facility] SARS-COV-2 COVID-19 MODERNA 12+ YRS VACCINE 2020-10-26 00:00:00 Completed [facility] SARS-COV-2 COVID-19 MODERNA VACCINE 2020-10-26 00:00:00 Completed [facility] SARS-COV-2 COVID-19 MODERNA 12+ YRS VACCINE 2020-10-26 00:00:00 Completed [facility] SARS-COV-2 COVID-19 MODERNA 12+ YRS VACCINE 2020-10-26 00:00:00 Completed [facility] SARS-COV-2 COVID-19 MODERNA 12+ YRS VACCINE 2020-10-26 00:00:00 Completed [facility] SARS-COV-2 COVID-19 MODERNA 12+ YRS VACCINE 2020-10-26 00:00:00 Completed [facility] SARS-COV-2 COVID-19 MODERNA 12+ YRS VACCINE 2020-10-26 00:00:00 Completed [facility] SARS-COV-2 COVID-19 MODERNA 12+ YRS VACCINE 2020-10-26 00:00:00 Completed [facility] SARS-COV-2 COVID-19 MODERNA 12+ YRS VACCINE 2020-10-26 00:00:00 Completed [facility] SARS-COV-2 COVID-19 MODERNA 12+ YRS VACCINE 2020-10-26 00:00:00 Completed [facility] SARS-COV-2 COVID-19 MODERNA 12+ YRS VACCINE 2020-10-26 00:00:00 Completed [facility] SARS-COV-2 COVID-19 MODERNA 12+ YRS VACCINE 2020-10-26 00:00:00 Completed [facility] SARS-COV-2 COVID-19 MODERNA 12+ YRS VACCINE 2020-10-26 00:00:00 Completed [facility] SARS-COV-2 COVID-19 MODERNA 12+ YRS VACCINE 2020-10-26 00:00:00 Completed [facility] SARS-COV-2 COVID-19 MODERNA 12+ YRS VACCINE 2020-10-26 00:00:00 Completed [facility] SARS-COV-2 COVID-19 MODERNA 12+ YRS VACCINE 2020-10-26 00:00:00 Completed [facility] SARS-COV-2 COVID-19 MODERNA 12+ YRS VACCINE 2020-10-26 00:00:00 Completed [facility] SARS-COV-2 COVID-19 MODERNA 12+ YRS VACCINE 2020-10-26 00:00:00 Completed [facility] SARS-COV-2 COVID-19 MODERNA 12+ YRS VACCINE 2020-10-26 00:00:00 Completed [facility] SARS-COV-2 COVID-19 MODERNA 12+ YRS VACCINE 2020-10-26 00:00:00 Completed [facility] SARS-COV-2 COVID-19 MODERNA 12+ YRS VACCINE 2020-10-26 00:00:00 Completed [facility] SARS-COV-2 COVID-19 MODERNA VACCINE 2020-10-26 00:00:00 Completed [facility] SARS-COV-2 COVID-19 MODERNA 12+ YRS VACCINE 2020-10-26 00:00:00 Completed [facility] SARS-COV-2 COVID-19 MODERNA 12+ YRS VACCINE 2020-10-26 00:00:00 Completed [facility] SARS-COV-2 COVID-19 MODERNA 12+ YRS VACCINE 2020-10-26 00:00:00 Completed [facility] SARS-COV-2 COVID-19 MODERNA 12+ YRS VACCINE 2020-10-26 00:00:00 Completed [facility] SARS-COV-2 COVID-19 MODERNA 12+ YRS VACCINE 2020-10-26 00:00:00 Completed [facility] SARS-COV-2 COVID-19 MODERNA VACCINE 2020-10-26 00:00:00 Completed [facility] SARS-COV-2 COVID-19 MODERNA 12+ YRS VACCINE 2020-10-26 00:00:00 Completed [facility] SARS-COV-2 COVID-19 MODERNA 12+ YRS VACCINE 2020-10-26 00:00:00 Completed [facility] SARS-COV-2 COVID-19 MODERNA 12+ YRS VACCINE 2020-10-26 00:00:00 Completed [facility] SARS-COV-2 COVID-19 MODERNA 12+ YRS VACCINE 2020-10-26 00:00:00 Completed [facility] SARS-COV-2 COVID-19 MODERNA 12+ YRS VACCINE 2020-10-26 00:00:00 Completed [facility] SARS-COV-2 COVID-19 MODERNA VACCINE 2020-10-26 00:00:00 Completed [facility] SARS-COV-2 COVID-19 MODERNA VACCINE 2020-10-26 00:00:00 Completed [facility] SARS-COV-2 COVID-19 MODERNA VACCINE 2020-10-26 00:00:00 Completed [facility] SARS-COV-2 COVID-19 MODERNA VACCINE 2020-10-26 00:00:00 Completed [facility] SARS-COV-2 COVID-19 MODERNA VACCINE 2020-10-26 00:00:00 Completed [facility] SARS-COV-2 COVID-19 MODERNA VACCINE 2020-10-26 00:00:00 Completed [facility] SARS-COV-2 COVID-19 MODERNA VACCINE 2020-10-26 00:00:00 Completed [facility] SARS-COV-2 COVID-19 MODERNA VACCINE 2020-10-26 00:00:00 Completed [facility] SARS-COV-2 COVID-19 MODERNA VACCINE 2020-10-26 00:00:00 Completed [facility] SARS-COV-2 COVID-19 MODERNA VACCINE 2020-10-26 00:00:00 Completed [facility] SARS-COV-2 COVID-19 MODERNA VACCINE 2020-10-26 00:00:00 Completed [facility] SARS-COV-2 COVID-19 MODERNA VACCINE 2020-10-26 00:00:00 Completed [facility] SARS-COV-2 COVID-19 MODERNA VACCINE 2020-10-26 00:00:00 Completed [facility] SARS-COV-2 COVID-19 MODERNA VACCINE 2020-10-26 00:00:00 Completed [facility] SARS-COV-2 COVID-19 MODERNA 12+ YRS VACCINE 2020-10-26 00:00:00 Completed [facility] SARS-COV-2 COVID-19 MODERNA 12+ YRS VACCINE 2020-10-26 00:00:00 Completed [facility] SARS-COV-2 COVID-19 MODERNA 12+ YRS VACCINE 2020-10-26 00:00:00 Completed [facility] SARS-COV-2 COVID-19 MODERNA 12+ YRS VACCINE 2020-10-26 00:00:00 Completed [facility] SARS-COV-2 COVID-19 MODERNA VACCINE 2020-10-26 00:00:00 Completed [facility] SARS-COV-2 COVID-19 MODERNA 12+ YRS VACCINE 2020-10-26 00:00:00 Completed [facility] SARS-COV-2 COVID-19 MODERNA 12+ YRS VACCINE 2020-10-26 00:00:00 Completed [facility] SARS-COV-2 COVID-19 MODERNA 12+ YRS VACCINE 2020-10-26 00:00:00 Completed [facility] Td 2019-02-16 00:00:00 Completed [facility] TD, NOS 2019-02-16 00:00:00 Completed [facility] TD, NOS 2019-02-16 00:00:00 Completed [facility] TD, NOS 2019-02-16 00:00:00 Completed [facility] TD, NOS 2019-02-16 00:00:00 Completed [facility] TD, NOS 2019-02-16 00:00:00 Completed [facility] Td 2019-02-16 00:00:00 Completed [facility] TD, NOS 2019-02-16 00:00:00 Completed [facility] TD, NOS 2019-02-16 00:00:00 Completed [facility] TD, NOS 2019-02-16 00:00:00 Completed [facility] TD, NOS 2019-02-16 00:00:00 Completed [facility] TD, NOS 2019-02-16 00:00:00 Completed [facility] TD, NOS 2019-02-16 00:00:00 Completed [facility] TD, NOS 2019-02-16 00:00:00 Completed [facility] Td 2019-02-16 00:00:00 Completed [facility] TD, NOS 2019-02-16 00:00:00 Completed [facility] TD, NOS 2019-02-16 00:00:00 Completed [facility] TD, NOS 2019-02-16 00:00:00 Completed [facility] TD, NOS 2019-02-16 00:00:00 Completed [facility] Td 2019-02-16 00:00:00 Completed [facility] TD, NOS 2019-02-16 00:00:00 Completed [facility] TD, NOS 2019-02-16 00:00:00 Completed [facility] TD, NOS 2019-02-16 00:00:00 Completed [facility] TD, NOS 2019-02-16 00:00:00 Completed [facility] Td 2019-02-16 00:00:00 Completed [facility] TD, NOS 2019-02-16 00:00:00 Completed [facility] TD, NOS 2019-02-16 00:00:00 Completed [facility] TD, NOS 2019-02-16 00:00:00 Completed [facility] TD, NOS 2019-02-16 00:00:00 Completed [facility] TD, NOS 2019-02-16 00:00:00 Completed [facility] TD, NOS 2019-02-16 00:00:00 Completed [facility] TD, NOS 2019-02-16 00:00:00 Completed [facility] Td 2019-02-16 00:00:00 Completed [facility] TD, NOS 2019-02-16 00:00:00 Completed [facility] TD, NOS 2019-02-16 00:00:00 Completed [facility] TD, NOS 2019-02-16 00:00:00 Completed [facility] TD, NOS 2019-02-16 00:00:00 Completed [facility] Td 2019-02-16 00:00:00 Completed [facility] TD, NOS 2019-02-16 00:00:00 Completed [facility] TD, NOS 2019-02-16 00:00:00 Completed [facility] TD, NOS 2019-02-16 00:00:00 Completed [facility] TD, NOS 2019-02-16 00:00:00 Completed [facility] Td 2019-02-16 00:00:00 Completed [facility] TD, NOS 2019-02-16 00:00:00 Completed [facility] TD, NOS 2019-02-16 00:00:00 Completed [facility] TD, NOS 2019-02-16 00:00:00 Completed [facility] TD, NOS 2019-02-16 00:00:00 Completed [facility] TD, NOS 2019-02-16 00:00:00 Completed [facility] TD, NOS 2019-02-16 00:00:00 Completed [facility] Td 2019-02-16 00:00:00 Completed [facility] Td 2019-02-16 00:00:00 Completed [facility] Td 2019-02-16 00:00:00 Completed [facility] Td 2019-02-16 00:00:00 Completed [facility] Td 2019-02-16 00:00:00 Completed [facility] Td 2019-02-16 00:00:00 Completed [facility] Td 2019-02-16 00:00:00 Completed [facility] Td 2019-02-16 00:00:00 Completed [facility] Td 2019-02-16 00:00:00 Completed [facility] Td 2019-02-16 00:00:00 Completed [facility] Td 2019-02-16 00:00:00 Completed [facility] Td 2019-02-16 00:00:00 Completed [facility] Td 2019-02-16 00:00:00 Completed [facility] Td 2019-02-16 00:00:00 Completed [facility] TD, NOS 2019-02-16 00:00:00 Completed [facility] TD, NOS 2019-02-16 00:00:00 Completed [facility] TD, NOS 2019-02-16 00:00:00 Completed [facility] TD, NOS 2019-02-16 00:00:00 Completed [facility] Td 2019-02-16 00:00:00 Completed [facility] TD, NOS 2019-02-16 00:00:00 Completed [facility] TD, NOS 2019-02-16 00:00:00 Completed [facility] TD, NOS 2019-02-16 00:00:00 Completed [facility] Pneumococcal Polysaccharide, PPSV23 (PNEUMOVAX) 2014-09-05 00:00:00 Completed [facility] Influenza Virus Vaccine Quad IM 3+ YRS 2014-09-05 00:00:00 Completed [facility] Pneumococcal Polysaccharide, PPSV23 (PNEUMOVAX) 2014-09-05 00:00:00 Completed [facility] Influenza Virus Vaccine Quad IM 3+ YRS 2014-09-05 00:00:00 Completed [facility] Pneumococcal Polysaccharide, PPSV23 (PNEUMOVAX) 2014-09-05 00:00:00 Completed [facility] Influenza Virus Vaccine Quad IM 3+ YRS 2014-09-05 00:00:00 Completed [facility] Pneumococcal Polysaccharide, PPSV23 (PNEUMOVAX) 2014-09-05 00:00:00 Completed [facility] Influenza Virus Vaccine Quad IM 3+ YRS 2014-09-05 00:00:00 Completed [facility] Pneumococcal Polysaccharide, PPSV23 (PNEUMOVAX) 2014-09-05 00:00:00 Completed [facility] Influenza Virus Vaccine Quad IM 3+ YRS 2014-09-05 00:00:00 Completed [facility] Pneumococcal Polysaccharide, PPSV23 (PNEUMOVAX) 2014-09-05 00:00:00 Completed [facility] Influenza Virus Vaccine Quad IM 3+ YRS 2014-09-05 00:00:00 Completed [facility] Pneumococcal Polysaccharide, PPSV23 (PNEUMOVAX) 2014-09-05 00:00:00 Completed [facility] Influenza Virus Vaccine Quad IM 3+ YRS 2014-09-05 00:00:00 Completed [facility] Pneumococcal Polysaccharide, PPSV23 (PNEUMOVAX) 2014-09-05 00:00:00 Completed [facility] Influenza Virus Vaccine Quad IM 3+ YRS 2014-09-05 00:00:00 Completed [facility] Pneumococcal Polysaccharide, PPSV23 (PNEUMOVAX) 2014-09-05 00:00:00 Completed [facility] Influenza Virus Vaccine Quad IM 3+ YRS 2014-09-05 00:00:00 Completed [facility] Pneumococcal Polysaccharide, PPSV23 (PNEUMOVAX) 2014-09-05 00:00:00 Completed [facility] Influenza Virus Vaccine Quad IM 3+ YRS 2014-09-05 00:00:00 Completed [facility] Pneumococcal Polysaccharide, PPSV23 (PNEUMOVAX) 2014-09-05 00:00:00 Completed [facility] Influenza Virus Vaccine Quad IM 3+ YRS 2014-09-05 00:00:00 Completed [facility] Pneumococcal Polysaccharide, PPSV23 (PNEUMOVAX) 2014-09-05 00:00:00 Completed [facility] Influenza Virus Vaccine Quad IM 3+ YRS 2014-09-05 00:00:00 Completed [facility] Pneumococcal Polysaccharide, PPSV23 (PNEUMOVAX) 2014-09-05 00:00:00 Completed [facility] Influenza Virus Vaccine Quad IM 3+ YRS 2014-09-05 00:00:00 Completed [facility] Influenza Virus Vaccine Quad IM 3+ YRS 2014-09-05 00:00:00 Completed [facility] Pneumococcal Polysaccharide, PPSV23 (PNEUMOVAX) 2014-09-05 00:00:00 Completed [facility] Pneumococcal Polysaccharide, PPSV23 (PNEUMOVAX) 2014-09-05 00:00:00 Completed [facility] Influenza Virus Vaccine Quad IM 3+ YRS 2014-09-05 00:00:00 Completed [facility] Pneumococcal Polysaccharide, PPSV23 (PNEUMOVAX) 2014-09-05 00:00:00 Completed [facility] Influenza Virus Vaccine Quad IM 3+ YRS 2014-09-05 00:00:00 Completed [facility] Pneumococcal Polysaccharide, PPSV23 (PNEUMOVAX) 2014-09-05 00:00:00 Completed [facility] Influenza Virus Vaccine Quad IM 3+ YRS 2014-09-05 00:00:00 Completed [facility] Pneumococcal Polysaccharide, PPSV23 (PNEUMOVAX) 2014-09-05 00:00:00 Completed [facility] Influenza Virus Vaccine Quad IM 3+ YRS 2014-09-05 00:00:00 Completed [facility] Pneumococcal Polysaccharide, PPSV23 (PNEUMOVAX) 2014-09-05 00:00:00 Completed [facility] Influenza Virus Vaccine Quad IM 3+ YRS 2014-09-05 00:00:00 Completed [facility] Pneumococcal Polysaccharide, PPSV23 (PNEUMOVAX) 2014-09-05 00:00:00 Completed [facility] Influenza Virus Vaccine Quad IM 3+ YRS 2014-09-05 00:00:00 Completed [facility] Pneumococcal Polysaccharide, PPSV23 (PNEUMOVAX) 2014-09-05 00:00:00 Completed [facility] Influenza Virus Vaccine Quad IM 3+ YRS 2014-09-05 00:00:00 Completed [facility] Pneumococcal Polysaccharide, PPSV23 (PNEUMOVAX) 2014-09-05 00:00:00 Completed [facility] Influenza Virus Vaccine Quad IM 3+ YRS 2014-09-05 00:00:00 Completed [facility] Pneumococcal Polysaccharide, PPSV23 (PNEUMOVAX) 2014-09-05 00:00:00 Completed [facility] Influenza Virus Vaccine Quad IM 3+ YRS 2014-09-05 00:00:00 Completed [facility] Pneumococcal Polysaccharide, PPSV23 (PNEUMOVAX) 2014-09-05 00:00:00 Completed [facility] Influenza Virus Vaccine Quad IM 3+ YRS 2014-09-05 00:00:00 Completed [facility] Pneumococcal Polysaccharide, PPSV23 (PNEUMOVAX) 2014-09-05 00:00:00 Completed [facility] Influenza Virus Vaccine Quad IM 3+ YRS 2014-09-05 00:00:00 Completed [facility] Pneumococcal Polysaccharide, PPSV23 (PNEUMOVAX) 2014-09-05 00:00:00 Completed [facility] Influenza Virus Vaccine Quad IM 3+ YRS 2014-09-05 00:00:00 Completed [facility] Pneumococcal Polysaccharide, PPSV23 (PNEUMOVAX) 2014-09-05 00:00:00 Completed [facility] Influenza Virus Vaccine Quad IM 3+ YRS 2014-09-05 00:00:00 Completed [facility] Pneumococcal Polysaccharide, PPSV23 (PNEUMOVAX) 2014-09-05 00:00:00 Completed [facility] Influenza Virus Vaccine Quad IM 3+ YRS 2014-09-05 00:00:00 Completed [facility] Pneumococcal Polysaccharide, PPSV23 (PNEUMOVAX) 2014-09-05 00:00:00 Completed [facility] Influenza Virus Vaccine Quad IM 3+ YRS 2014-09-05 00:00:00 Completed [facility] Pneumococcal Polysaccharide, PPSV23 (PNEUMOVAX) 2014-09-05 00:00:00 Completed [facility] Influenza Virus Vaccine Quad IM 3+ YRS 2014-09-05 00:00:00 Completed [facility] Pneumococcal Polysaccharide, PPSV23 (PNEUMOVAX) 2014-09-05 00:00:00 Completed [facility] Influenza Virus Vaccine Quad IM 3+ YRS 2014-09-05 00:00:00 Completed [facility] Influenza Virus Vaccine Quad IM 3+ YRS 2014-09-05 00:00:00 Completed [facility] Pneumococcal Polysaccharide, PPSV23 (PNEUMOVAX) 2014-09-05 00:00:00 Completed [facility] Pneumococcal Polysaccharide, PPSV23 (PNEUMOVAX) 2014-09-05 00:00:00 Completed [facility] Influenza Virus Vaccine Quad IM 3+ YRS 2014-09-05 00:00:00 Completed [facility] Pneumococcal Polysaccharide, PPSV23 (PNEUMOVAX) 2014-09-05 00:00:00 Completed [facility] Influenza Virus Vaccine Quad IM 3+ YRS 2014-09-05 00:00:00 Completed [facility] Pneumococcal Polysaccharide, PPSV23 (PNEUMOVAX) 2014-09-05 00:00:00 Completed [facility] Influenza Virus Vaccine Quad IM 3+ YRS 2014-09-05 00:00:00 Completed [facility] Pneumococcal Polysaccharide, PPSV23 (PNEUMOVAX) 2014-09-05 00:00:00 Completed [facility] Influenza Virus Vaccine Quad IM 3+ YRS 2014-09-05 00:00:00 Completed [facility] Pneumococcal Polysaccharide, PPSV23 (PNEUMOVAX) 2014-09-05 00:00:00 Completed [facility] Influenza Virus Vaccine Quad IM 3+ YRS 2014-09-05 00:00:00 Completed [facility] Pneumococcal Polysaccharide, PPSV23 (PNEUMOVAX) 2014-09-05 00:00:00 Completed [facility] Influenza Virus Vaccine Quad IM 3+ YRS 2014-09-05 00:00:00 Completed [facility] Pneumococcal Polysaccharide, PPSV23 (PNEUMOVAX) 2014-09-05 00:00:00 Completed [facility] Influenza Virus Vaccine Quad IM 3+ YRS 2014-09-05 00:00:00 Completed [facility] Pneumococcal Polysaccharide, PPSV23 (PNEUMOVAX) 2014-09-05 00:00:00 Completed [facility] Influenza Virus Vaccine Quad IM 3+ YRS 2014-09-05 00:00:00 Completed [facility] Pneumococcal Polysaccharide, PPSV23 (PNEUMOVAX) 2014-09-05 00:00:00 Completed [facility] Influenza Virus Vaccine Quad IM 3+ YRS 2014-09-05 00:00:00 Completed [facility] Pneumococcal Polysaccharide, PPSV23 (PNEUMOVAX) 2014-09-05 00:00:00 Completed [facility] Influenza Virus Vaccine Quad IM 3+ YRS 2014-09-05 00:00:00 Completed [facility] Pneumococcal Polysaccharide, PPSV23 (PNEUMOVAX) 2014-09-05 00:00:00 Completed [facility] Influenza Virus Vaccine Quad IM 3+ YRS 2014-09-05 00:00:00 Completed [facility] Pneumococcal Polysaccharide, PPSV23 (PNEUMOVAX) 2014-09-05 00:00:00 Completed [facility] Influenza Virus Vaccine Quad IM 3+ YRS 2014-09-05 00:00:00 Completed [facility] Pneumococcal Polysaccharide, PPSV23 (PNEUMOVAX) 2014-09-05 00:00:00 Completed [facility] Influenza Virus Vaccine Quad IM 3+ YRS 2014-09-05 00:00:00 Completed [facility] Pneumococcal Polysaccharide, PPSV23 (PNEUMOVAX) 2014-09-05 00:00:00 Completed [facility] Influenza Virus Vaccine Quad IM 3+ YRS 2014-09-05 00:00:00 Completed [facility] Pneumococcal Polysaccharide, PPSV23 (PNEUMOVAX) 2014-09-05 00:00:00 Completed [facility] Influenza Virus Vaccine Quad IM 3+ YRS 2014-09-05 00:00:00 Completed [facility] Pneumococcal Polysaccharide, PPSV23 (PNEUMOVAX) 2014-09-05 00:00:00 Completed [facility] Influenza Virus Vaccine Quad IM 3+ YRS 2014-09-05 00:00:00 Completed [facility] Pneumococcal Polysaccharide, PPSV23 (PNEUMOVAX) 2014-09-05 00:00:00 Completed [facility] Influenza Virus Vaccine Quad IM 3+ YRS 2014-09-05 00:00:00 Completed [facility] Pneumococcal Polysaccharide, PPSV23 (PNEUMOVAX) 2014-09-05 00:00:00 Completed [facility] Influenza Virus Vaccine Quad IM 3+ YRS 2014-09-05 00:00:00 Completed [facility] Pneumococcal Polysaccharide, PPSV23 (PNEUMOVAX) 2014-09-05 00:00:00 Completed [facility] Influenza Virus Vaccine Quad IM 3+ YRS 2014-09-05 00:00:00 Completed [facility] Pneumococcal Polysaccharide, PPSV23 (PNEUMOVAX) 2014-09-05 00:00:00 Completed [facility] Influenza Virus Vaccine Quad IM 3+ YRS 2014-09-05 00:00:00 Completed [facility] Pneumococcal Polysaccharide, PPSV23 (PNEUMOVAX) 2014-09-05 00:00:00 Completed [facility] Influenza Virus Vaccine Quad IM 3+ YRS 2014-09-05 00:00:00 Completed [facility] Pneumococcal Polysaccharide, PPSV23 (PNEUMOVAX) 2014-09-05 00:00:00 Completed [facility] Influenza Virus Vaccine Quad IM 3+ YRS 2014-09-05 00:00:00 Completed [facility] Pneumococcal Polysaccharide, PPSV23 (PNEUMOVAX) 2014-09-05 00:00:00 Completed [facility] Influenza Virus Vaccine Quad IM 3+ YRS 2014-09-05 00:00:00 Completed [facility] Pneumococcal Polysaccharide, PPSV23 (PNEUMOVAX) 2014-09-05 00:00:00 Completed [facility] Influenza Virus Vaccine Quad IM 3+ YRS 2014-09-05 00:00:00 Completed [facility] Pneumococcal Polysaccharide, PPSV23 (PNEUMOVAX) 2014-09-05 00:00:00 Completed [facility] Influenza Virus Vaccine Quad IM 3+ YRS 2014-09-05 00:00:00 Completed [facility] Pneumococcal Polysaccharide, PPSV23 (PNEUMOVAX) 2014-09-05 00:00:00 Completed [facility] Influenza Virus Vaccine Quad IM 3+ YRS 2014-09-05 00:00:00 Completed [facility] Pneumococcal Polysaccharide, PPSV23 (PNEUMOVAX) 2014-09-05 00:00:00 Completed [facility] Influenza Virus Vaccine Quad IM 3+ YRS 2014-09-05 00:00:00 Completed [facility] Pneumococcal Polysaccharide, PPSV23 (PNEUMOVAX) 2014-09-05 00:00:00 Completed [facility] Influenza Virus Vaccine Quad IM 3+ YRS 2014-09-05 00:00:00 Completed [facility] Pneumococcal Polysaccharide, PPSV23 (PNEUMOVAX) 2014-09-05 00:00:00 Completed [facility] Influenza Virus Vaccine Quad IM 3+ YRS 2014-09-05 00:00:00 Completed [facility] Pneumococcal Polysaccharide, PPSV23 (PNEUMOVAX) 2014-09-05 00:00:00 Completed [facility] Influenza Virus Vaccine Quad IM 3+ YRS 2014-09-05 00:00:00 Completed [facility] Pneumococcal Polysaccharide, PPSV23 (PNEUMOVAX) 2014-09-05 00:00:00 Completed [facility] Influenza Virus Vaccine Quad IM 3+ YRS 2014-09-05 00:00:00 Completed [facility] Pneumococcal Polysaccharide, PPSV23 (PNEUMOVAX) 2014-09-05 00:00:00 Completed [facility] Influenza Virus Vaccine Quad IM 3+ YRS 2014-09-05 00:00:00 Completed [facility] Pneumococcal Polysaccharide, PPSV23 (PNEUMOVAX) 2014-09-05 00:00:00 Completed [facility] Influenza Virus Vaccine Quad IM 3+ YRS 2014-09-05 00:00:00 Completed [facility] Pneumococcal Polysaccharide, PPSV23 (PNEUMOVAX) 2014-09-05 00:00:00 Completed [facility] Influenza Virus Vaccine Quad IM 3+ YRS 2014-09-05 00:00:00 Completed [facility] Influenza Virus Vaccine Quad IM 3+ YRS 2014-09-05 00:00:00 Completed [facility] Pneumococcal Polysaccharide, PPSV23 (PNEUMOVAX) 2014-09-05 00:00:00 Completed [facility] Pneumococcal Polysaccharide, PPSV23 (PNEUMOVAX) 2014-09-05 00:00:00 Completed [facility] Influenza Virus Vaccine Quad IM 3+ YRS 2014-09-05 00:00:00 Completed [facility] Pneumococcal Polysaccharide, PPSV23 (PNEUMOVAX) 2014-09-05 00:00:00 Completed [facility] Influenza Virus Vaccine Quad IM 3+ YRS 2014-09-05 00:00:00 Completed [facility] Pneumococcal Polysaccharide, PPSV23 (PNEUMOVAX) 2014-09-05 00:00:00 Completed [facility] Influenza Virus Vaccine Quad IM 3+ YRS 2014-09-05 00:00:00 Completed [facility] Pneumococcal Polysaccharide, PPSV23 (PNEUMOVAX) 2014-09-05 00:00:00 Completed [facility] Influenza Virus Vaccine Quad IM 3+ YRS 2014-09-05 00:00:00 Completed [facility] Influenza Virus Vaccine Quad IM 3+ YRS Unknown Completed [facility] Pneumococcal Polysaccharide, PPSV23 (PNEUMOVAX) Unknown Completed [facility] TD, NOS Unknown Completed [facility] SARS-COV-2 COVID-19 MODERNA 12+ YRS VACCINE Unknown Completed [facility] SARS-COV-2 COVID-19 MODERNA 12+ YRS VACCINE Unknown Completed [facility] Pneumococcal 20 Conjugate, PCV20 (Prevnar 20) Unknown Completed [facility] Influenza Virus Vaccine Quad IM 3+ YRS Unknown Completed [facility] Pneumococcal Polysaccharide, PPSV23 (PNEUMOVAX) Unknown Completed [facility] TD, NOS Unknown Completed [facility] SARS-COV-2 COVID-19 MODERNA 12+ YRS VACCINE Unknown Completed [facility] SARS-COV-2 COVID-19 MODERNA 12+ YRS VACCINE Unknown Completed [facility] Pneumococcal 20 Conjugate, PCV20 (Prevnar 20) Unknown Completed [facility] Influenza Virus Vaccine Quad IM 3+ YRS Unknown Completed [facility] Pneumococcal Polysaccharide, PPSV23 (PNEUMOVAX) Unknown Completed [facility] TD, NOS Unknown Completed [facility] SARS-COV-2 COVID-19 MODERNA 12+ YRS VACCINE Unknown Completed [facility] SARS-COV-2 COVID-19 MODERNA 12+ YRS VACCINE Unknown Completed [facility] Pneumococcal 20 Conjugate, PCV20 (Prevnar 20) Unknown Completed [facility] Vital Signs Vital Name Observation Time Observation Value Comments S ource Systolic blood pressure 2023-04-19 15:37:00 126 mm[Hg] [facility] Diastolic blood pressure 2023-04-19 15:37:00 83 mm[Hg] [facility] Heart rate 2023-04-19 15:37:00 94 /min [facility] Respiratory rate 2023-04-19 15:35:00 18 /min [facility] Body height 2023-04-19 15:35:00 177.8 cm [facility] Body weight 2023-04-19 15:35:00 59.138 kg [facility] BMI 2023-04-19 15:35:00 18.71 kg/m2 [facility] Oxygen saturation in Arterial blood by Pulse oximetry 2023-04-19 15:35:00 94 /min [facility] Systolic blood pressure 2023-03-01 20:27:00 143 mm[Hg] [facility] Diastolic blood pressure 2023-03-01 20:27:00 87 mm[Hg] [facility] Heart rate 2023-03-01 20:27:00 99 /min [facility] Body height 2023-03-01 20:27:00 177.8 cm [facility] Body weight 2023-03-01 20:27:00 57.153 kg [facility] BMI 2023-03-01 20:27:00 18.08 kg/m2 [facility] Oxygen saturation in Arterial blood by Pulse oximetry 2023-03-01 20:27:00 99 /min [facility] Systolic blood pressure 2023-02-18 16:17:00 144 mm[Hg] [facility] Diastolic blood pressure 2023-02-18 16:17:00 68 mm[Hg] [facility] Heart rate 2023-02-18 16:17:00 55 /min [facility] Body temperature 2023-02-18 16:17:00 36.06 Tia [facility] Respiratory rate 2023-02-18 16:17:00 18 /min [facility] Oxygen saturation in Arterial blood by Pulse oximetry 2023-02-18 16:17:00 100 /min [facility] Body weight 2023-02-18 07:50:00 58.968 kg [facility] BMI 2023-02-18 07:50:00 18.65 kg/m2 [facility] Body height 2023-02-16 00:31:00 177.8 cm [facility] Oxygen saturation in Arterial blood by Pulse oximetry 2023-02-07 19:29:00 99 /min [facility] Systolic blood pressure 2023-02-07 19:27:00 103 mm[Hg] [facility] Diastolic blood pressure 2023-02-07 19:27:00 75 mm[Hg] [facility] Heart rate 2023-02-07 19:27:00 104 /min [facility] Body temperature 2023-02-07 19:27:00 36.39 Tia [facility] Respiratory rate 2023-02-07 19:27:00 22 /min [facility] Body weight 2023-02-07 19:27:00 72.576 kg [facility] BMI 2023-02-07 19:27:00 22.96 kg/m2 [facility] Heart rate 2023-02-05 20:17:00 85 /min [facility] Respiratory rate 2023-02-05 20:17:00 18 /min [facility] Oxygen saturation in Arterial blood by Pulse oximetry 2023-02-05 20:17:00 100 /min [facility] Systolic blood pressure 2023-02-05 19:53:35 98 mm[Hg] [facility] Diastolic blood pressure 2023-02-05 19:53:35 71 mm[Hg] [facility] Body temperature 2023-02-05 19:51:00 36.5 Tai [facility] Body height 2023-02-05 19:51:00 177.8 cm [facility] Body weight 2023-02-05 19:51:00 72.576 kg [facility] BMI 2023-02-05 19:51:00 22.96 kg/m2 [facility] Heart rate 2023-02-04 20:31:00 76 /min [facility] Respiratory rate 2023-02-04 20:31:00 18 /min [facility] Oxygen saturation in Arterial blood by Pulse oximetry 2023-02-04 20:31:00 97 /min [facility] Systolic blood pressure 2023-02-04 20:15:00 126 mm[Hg] [facility] Diastolic blood pressure 2023-02-04 20:15:00 98 mm[Hg] [facility] Body temperature 2023-02-04 20:15:00 36.83 Tia [facility] Body weight 2023-02-04 20:15:00 72.576 kg [facility] BMI 2023-02-04 20:15:00 22.96 kg/m2 [facility] Systolic blood pressure 2023-02-03 23:00:00 100 mm[Hg] [facility] Diastolic blood pressure 2023-02-03 23:00:00 65 mm[Hg] [facility] Heart rate 2023-02-03 23:00:00 115 /min [facility] Respiratory rate 2023-02-03 23:00:00 20 /min [facility] Oxygen saturation in Arterial blood by Pulse oximetry 2023-02-03 23:00:00 97 /min [facility] Body temperature 2023-02-03 22:44:00 36.72 Tia [facility] Body weight 2023-02-03 22:44:00 72.576 kg [facility] BMI 2023-02-03 22:44:00 22.96 kg/m2 [facility] Systolic blood pressure 2023-02-03 20:02:00 128 mm[Hg] [facility] Diastolic blood pressure 2023-02-03 20:02:00 81 mm[Hg] [facility] Heart rate 2023-02-03 20:02:00 88 /min [facility] Respiratory rate 2023-02-03 20:02:00 25 /min [facility] Oxygen saturation in Arterial blood by Pulse oximetry 2023-02-03 20:02:00 94 /min [facility] Body temperature 2023-02-03 18:18:00 36.61 Tia [facility] Body weight 2023-02-03 17:41:00 72.576 kg [facility] BMI 2023-02-03 17:41:00 22.96 kg/m2 [facility] Heart rate 2023-02-02 22:49:00 107 /min [facility] Respiratory rate 2023-02-02 22:49:00 20 /min [facility] Oxygen saturation in Arterial blood by Pulse oximetry 2023-02-02 22:49:00 94 /min [facility] Systolic blood pressure 2023-02-02 22:32:00 102 mm[Hg] [facility] Diastolic blood pressure 2023-02-02 22:32:00 74 mm[Hg] [facility] Body temperature 2023-02-02 21:58:32 35.83 Tia [facility] Body height 2023-02-02 21:54:00 177.8 cm [facility] Body weight 2023-02-02 21:54:00 72.576 kg [facility] BMI 2023-02-02 21:54:00 22.96 kg/m2 [facility] Systolic blood pressure 2023-01-31 21:00:00 140 mm[Hg] [facility] Diastolic blood pressure 2023-01-31 21:00:00 72 mm[Hg] [facility] Heart rate 2023-01-31 21:00:00 89 /min [facility] Respiratory rate 2023-01-31 21:00:00 20 /min [facility] Oxygen saturation in Arterial blood by Pulse oximetry 2023-01-31 21:00:00 97 /min [facility] Body temperature 2023-01-31 18:50:00 36.72 Tia [facility] Body weight 2023-01-31 18:50:00 72.576 kg [facility] BMI 2023-01-31 18:50:00 22.96 kg/m2 [facility] Systolic blood pressure 2023-01-31 16:09:00 130 mm[Hg] [facility] Diastolic blood pressure 2023-01-31 16:09:00 72 mm[Hg] [facility] Heart rate 2023-01-31 16:09:00 99 /min [facility] Body temperature 2023-01-31 16:09:00 36.39 Tia [facility] Respiratory rate 2023-01-31 16:09:00 18 /min [facility] Body height 2023-01-31 16:09:00 177.8 cm [facility] Body weight 2023-01-31 16:09:00 72.576 kg [facility] BMI 2023-01-31 16:09:00 22.96 kg/m2 [facility] Oxygen saturation in Arterial blood by Pulse oximetry 2023-01-31 16:09:00 97 /min [facility] Systolic blood pressure 2023-01-31 14:50:00 134 mm[Hg] [facility] Diastolic blood pressure 2023-01-31 14:50:00 72 mm[Hg] [facility] Heart rate 2023-01-31 14:50:00 85 /min [facility] Body temperature 2023-01-31 14:50:00 36.39 Tia [facility] Respiratory rate 2023-01-31 14:50:00 20 /min [facility] Body weight 2023-01-31 14:50:00 72.576 kg [facility] BMI 2023-01-31 14:50:00 22.96 kg/m2 [facility] Oxygen saturation in Arterial blood by Pulse oximetry 2023-01-31 14:50:00 100 /min [facility] Respiratory rate 2023-01-29 13:40:00 20 /min [facility] Oxygen saturation in Arterial blood by Pulse oximetry 2023-01-29 13:40:00 100 /min [facility] Systolic blood pressure 2023-01-29 13:06:00 123 mm[Hg] [facility] Diastolic blood pressure 2023-01-29 13:06:00 76 mm[Hg] [facility] Heart rate 2023-01-29 13:06:00 97 /min [facility] Body temperature 2023-01-29 13:06:00 36.61 Tia [facility] Body height 2023-01-29 13:06:00 177.8 cm [facility] Body weight 2023-01-29 13:06:00 72.576 kg [facility] BMI 2023-01-29 13:06:00 22.96 kg/m2 [facility] Systolic blood pressure 2023-01-27 11:47:00 115 mm[Hg] [facility] Diastolic blood pressure 2023-01-27 11:47:00 75 mm[Hg] [facility] Heart rate 2023-01-27 11:47:00 100 /min [facility] Body temperature 2023-01-27 11:47:00 35.78 Tia [facility] Respiratory rate 2023-01-27 11:47:00 28 /min [facility] Oxygen saturation in Arterial blood by Pulse oximetry 2023-01-27 11:47:00 99 /min [facility] Body height 2023-01-27 09:57:00 177.8 cm [facility] Body weight 2023-01-27 09:57:00 72.576 kg [facility] BMI 2023-01-27 09:57:00 22.96 kg/m2 [facility] Heart rate 2023-01-24 20:55:00 88 /min [facility] Oxygen saturation in Arterial blood by Pulse oximetry 2023-01-24 20:55:00 93 /min [facility] Respiratory rate 2023-01-24 20:52:00 22 /min [facility] Systolic blood pressure 2023-01-24 20:30:00 128 mm[Hg] [facility] Diastolic blood pressure 2023-01-24 20:30:00 69 mm[Hg] [facility] Body temperature 2023-01-24 17:24:00 36.67 Tia [facility] Body height 2023-01-24 17:24:00 177.8 cm [facility] Body weight 2023-01-24 17:24:00 72.576 kg [facility] BMI 2023-01-24 17:24:00 22.96 kg/m2 [facility] Systolic blood pressure 2023-01-24 01:00:00 129 mm[Hg] [facility] Diastolic blood pressure 2023-01-24 01:00:00 76 mm[Hg] [facility] Heart rate 2023-01-24 01:00:00 77 /min [facility] Respiratory rate 2023-01-24 01:00:00 18 /min [facility] Oxygen saturation in Arterial blood by Pulse oximetry 2023-01-24 01:00:00 99 /min [facility] Body temperature 2023-01-24 00:02:00 35.61 Tia warm blankets applied [facility] Body weight 2023-01-24 00:02:00 58.968 kg [facility] BMI 2023-01-24 00:02:00 18.65 kg/m2 [facility] Heart rate 2023-01-22 23:46:00 93 /min [facility] Respiratory rate 2023-01-22 23:46:00 20 /min [facility] Oxygen saturation in Arterial blood by Pulse oximetry 2023-01-22 23:46:00 100 /min [facility] Systolic blood pressure 2023-01-22 23:21:00 146 mm[Hg] [facility] Diastolic blood pressure 2023-01-22 23:21:00 93 mm[Hg] [facility] Body temperature 2023-01-22 23:21:00 36.72 Tia [facility] Body weight 2023-01-22 23:21:00 58.968 kg [facility] BMI 2023-01-22 23:21:00 18.65 kg/m2 [facility] Heart rate 2023-01-21 21:57:00 84 /min [facility] Respiratory rate 2023-01-21 21:57:00 18 /min [facility] Oxygen saturation in Arterial blood by Pulse oximetry 2023-01-21 21:57:00 97 /min [facility] Systolic blood pressure 2023-01-21 21:00:00 103 mm[Hg] [facility] Diastolic blood pressure 2023-01-21 21:00:00 61 mm[Hg] [facility] Body temperature 2023-01-21 19:24:00 36.56 Tia [facility] Body weight 2023-01-21 19:24:00 58.968 kg [facility] BMI 2023-01-21 19:24:00 18.65 kg/m2 [facility] Systolic blood pressure 2023-01-19 21:00:00 111 mm[Hg] [facility] Diastolic blood pressure 2023-01-19 21:00:00 64 mm[Hg] [facility] Heart rate 2023-01-19 21:00:00 85 /min [facility] Body temperature 2023-01-19 21:00:00 36.56 Tia [facility] Respiratory rate 2023-01-19 21:00:00 17 /min [facility] Oxygen saturation in Arterial blood by Pulse oximetry 2023-01-19 21:00:00 98 /min [facility] Body height 2023-01-19 06:22:00 177.8 cm [facility] Body weight 2023-01-19 06:22:00 58.968 kg [facility] BMI 2023-01-19 06:22:00 18.65 kg/m2 [facility] Systolic blood pressure 2023-01-17 12:05:00 116 mm[Hg] [facility] Diastolic blood pressure 2023-01-17 12:05:00 69 mm[Hg] [facility] Heart rate 2023-01-17 12:05:00 100 /min [facility] Respiratory rate 2023-01-17 12:05:00 24 /min [facility] Oxygen saturation in Arterial blood by Pulse oximetry 2023-01-17 12:05:00 93 /min [facility] Body temperature 2023-01-17 10:59:00 35.39 Tia [facility] Body height 2023-01-17 10:59:00 177.8 cm [facility] Body weight 2023-01-17 10:59:00 58.968 kg [facility] BMI 2023-01-17 10:59:00 18.65 kg/m2 [facility] Systolic blood pressure 2023-01-07 19:38:00 122 mm[Hg] [facility] Diastolic blood pressure 2023-01-07 19:38:00 86 mm[Hg] [facility] Heart rate 2023-01-07 19:38:00 110 /min [facility] Respiratory rate 2023-01-07 19:38:00 16 /min [facility] Body height 2023-01-07 19:38:00 177.8 cm [facility] Body weight 2023-01-07 19:38:00 59.966 kg [facility] BMI 2023-01-07 19:38:00 18.97 kg/m2 [facility] Systolic blood pressure 2022-12-26 18:00:00 118 mm[Hg] [facility] Diastolic blood pressure 2022-12-26 18:00:00 79 mm[Hg] [facility] Heart rate 2022-12-26 18:00:00 93 /min [facility] Respiratory rate 2022-12-26 18:00:00 20 /min [facility] Oxygen saturation in Arterial blood by Pulse oximetry 2022-12-26 18:00:00 95 /min [facility] Body temperature 2022-12-26 15:49:00 36.11 Tia [facility] Body height 2022-12-26 15:49:00 177.8 cm [facility] Body weight 2022-12-26 15:49:00 72.576 kg [facility] BMI 2022-12-26 15:49:00 22.96 kg/m2 [facility] [facility] Respiratory rate 2022-12-12 16:45:00 18 /min [facility] Oxygen saturation in Arterial blood by Pulse oximetry 2022-12-12 16:45:00 99 /min [facility] Systolic blood pressure 2022-12-12 16:11:00 135 mm[Hg] [facility] Diastolic blood pressure 2022-12-12 16:11:00 80 mm[Hg] [facility] Heart rate 2022-12-12 16:11:00 77 /min [facility] Body temperature 2022-12-12 16:11:00 35.89 Tia [facility] Body weight 2022-12-12 08:50:00 65 kg [facility] BMI 2022-12-12 08:50:00 20.56 kg/m2 [facility] Body height 2022-12-11 04:23:00 177.8 cm [facility] Heart rate 2022-12-04 12:33:00 95 /min [facility] Respiratory rate 2022-12-04 12:33:00 17 /min [facility] Oxygen saturation in Arterial blood by Pulse oximetry 2022-12-04 12:33:00 98 /min [facility] Systolic blood pressure 2022-12-04 12:20:00 125 mm[Hg] [facility] Diastolic blood pressure 2022-12-04 12:20:00 74 mm[Hg] [facility] Body temperature 2022-12-04 12:20:00 36.61 Tia [facility] Body height 2022-12-02 05:16:00 177.8 cm [facility] Body weight 2022-12-02 05:16:00 72.576 kg [facility] BMI 2022-12-02 05:16:00 22.96 kg/m2 [facility] Systolic blood pressure 2022-12-01 13:00:00 114 mm[Hg] [facility] Diastolic blood pressure 2022-12-01 13:00:00 78 mm[Hg] [facility] Heart rate 2022-12-01 13:00:00 88 /min [facility] Respiratory rate 2022-12-01 13:00:00 20 /min [facility] Oxygen saturation in Arterial blood by Pulse oximetry 2022-12-01 13:00:00 98 /min [facility] Body temperature 2022-12-01 10:13:00 36.67 Tia [facility] Body height 2022-12-01 10:13:00 177.8 cm [facility] Body weight 2022-12-01 10:13:00 72.576 kg [facility] BMI 2022-12-01 10:13:00 22.96 kg/m2 [facility] Systolic blood pressure 2022-11-28 17:00:00 154 mm[Hg] [facility] Diastolic blood pressure 2022-11-28 17:00:00 106 mm[Hg] [facility] Heart rate 2022-11-28 17:00:00 87 /min [facility] Respiratory rate 2022-11-28 17:00:00 23 /min [facility] Oxygen saturation in Arterial blood by Pulse oximetry 2022-11-28 17:00:00 96 /min [facility] Body temperature 2022-11-28 16:00:00 36.78 Tia [facility] Body weight 2022-11-27 12:00:00 67.132 kg [facility] BMI 2022-11-27 12:00:00 21.24 kg/m2 [facility] Body height 2022-11-27 08:39:00 177.8 cm [facility] Systolic blood pressure 2022-11-19 10:48:00 152 mm[Hg] [facility] Diastolic blood pressure 2022-11-19 10:48:00 88 mm[Hg] [facility] Heart rate 2022-11-19 10:48:00 92 /min [facility] Respiratory rate 2022-11-19 10:48:00 16 /min [facility] Oxygen saturation in Arterial blood by Pulse oximetry 2022-11-19 10:48:00 98 /min [facility] Body temperature 2022-11-19 08:20:00 36.22 Tia [facility] Body height 2022-11-19 08:20:00 177.8 cm [facility] Body weight 2022-11-19 08:20:00 67.132 kg [facility] BMI 2022-11-19 08:20:00 21.24 kg/m2 [facility] Systolic blood pressure 2022-11-19 02:18:57 152 mm[Hg] [facility] Diastolic blood pressure 2022-11-19 02:18:57 91 mm[Hg] [facility] Heart rate 2022-11-19 02:18:57 109 /min [facility] Respiratory rate 2022-11-19 02:18:57 22 /min [facility] Oxygen saturation in Arterial blood by Pulse oximetry 2022-11-19 02:18:57 95 /min [facility] Body temperature 2022-11-19 02:17:11 36.78 Tia [facility] Body height 2022-11-19 00:52:00 177.8 cm [facility] Body weight 2022-11-19 00:52:00 67.132 kg [facility] BMI 2022-11-19 00:52:00 21.24 kg/m2 [facility] Heart rate 2022-11-11 17:35:00 75 /min [facility] Respiratory rate 2022-11-11 17:35:00 18 /min [facility] Oxygen saturation in Arterial blood by Pulse oximetry 2022-11-11 17:35:00 95 /min [facility] Systolic blood pressure 2022-11-11 17:25:00 130 mm[Hg] [facility] Diastolic blood pressure 2022-11-11 17:25:00 71 mm[Hg] [facility] Body temperature 2022-11-11 17:25:00 35.94 Tia [facility] Body weight 2022-11-11 09:34:00 77.52 kg [facility] BMI 2022-11-11 09:34:00 24.52 kg/m2 [facility] Body height 2022-11-09 19:30:00 177.8 cm [facility] Systolic blood pressure 2020-12-29 15:24:00 96 mm[Hg] [facility] Diastolic blood pressure 2020-12-29 15:24:00 66 mm[Hg] [facility] Heart rate 2020-12-29 15:24:00 71 /min [facility] Body temperature 2020-12-29 15:24:00 36.33 Tia [facility] Body weight 2020-12-29 15:24:00 72.576 kg [facility] BMI 2020-12-29 15:24:00 22.96 kg/m2 [facility] Oxygen saturation in Arterial blood by Pulse oximetry 2020-12-29 15:24:00 95 /min [facility] Systolic blood pressure 2020-12-18 19:07:00 117 mm[Hg] [facility] Diastolic blood pressure 2020-12-18 19:07:00 77 mm[Hg] [facility] Heart rate 2020-12-18 19:07:00 77 /min [facility] Body temperature 2020-12-18 19:07:00 36.22 Tia [facility] Respiratory rate 2020-12-18 19:07:00 18 /min [facility] Body height 2020-12-18 19:07:00 177.8 cm [facility] Body weight 2020-12-18 19:07:00 73.211 kg [facility] BMI 2020-12-18 19:07:00 23.16 kg/m2 [facility] Systolic blood pressure 2020-12-12 18:00:00 109 mm[Hg] [facility] Diastolic blood pressure 2020-12-12 18:00:00 74 mm[Hg] [facility] Heart rate 2020-12-12 18:00:00 78 /min [facility] Respiratory rate 2020-12-12 18:00:00 20 /min [facility] Oxygen saturation in Arterial blood by Pulse oximetry 2020-12-12 18:00:00 96 /min [facility] Body temperature 2020-12-12 16:33:00 37.28 Tia [facility] Body height 2020-12-12 16:33:00 177.8 cm [facility] Body weight 2020-12-12 16:33:00 70.308 kg [facility] BMI 2020-12-12 16:33:00 22.24 kg/m2 [facility] Systolic blood pressure 2020-12-08 18:55:00 125 mm[Hg] [facility] Diastolic blood pressure 2020-12-08 18:55:00 82 mm[Hg] [facility] Heart rate 2020-12-08 18:55:00 75 /min [facility] Body temperature 2020-12-08 18:55:00 36.56 Tia [facility] Respiratory rate 2020-12-08 18:55:00 16 /min [facility] Body height 2020-12-08 18:55:00 177.8 cm [facility] Body weight 2020-12-08 18:55:00 73.12 kg [facility] BMI 2020-12-08 18:55:00 23.13 kg/m2 [facility] Systolic blood pressure 2019-05-04 04:21:00 127 mm[Hg] [facility] Diastolic blood pressure 2019-05-04 04:21:00 86 mm[Hg] [facility] Heart rate 2019-05-04 04:21:00 99 /min [facility] Respiratory rate 2019-05-04 04:21:00 26 /min [facility] Body height 2019-05-04 04:21:00 177.8 cm [facility] Body weight 2019-05-04 04:21:00 72.576 kg [facility] BMI 2019-05-04 04:21:00 22.96 kg/m2 [facility] Oxygen saturation in Arterial blood by Pulse oximetry 2019-05-04 04:21:00 99 /min [facility] Systolic blood pressure 2019-05-04 04:21:00 127 mm[Hg] [facility] Diastolic blood pressure 2019-05-04 04:21:00 86 mm[Hg] [facility] Heart rate 2019-05-04 04:21:00 99 /min [facility] Respiratory rate 2019-05-04 04:21:00 26 /min [facility] Body height 2019-05-04 04:21:00 177.8 cm [facility] Body weight 2019-05-04 04:21:00 72.576 kg [facility] BMI 2019-05-04 04:21:00 22.96 kg/m2 [facility] Oxygen saturation in Arterial blood by Pulse oximetry 2019-05-04 04:21:00 99 /min [facility] Procedures Procedure Date / Time Performed Performing Clinician Source MEDICATION CORRESPONDENCE 2023-07-08 05:01:00 Do ctor Unassigned, [place] [facility] [id number] 2023-03-15 00:00:00 [facility] CONSENT/REFUSAL FOR DIAGNOSIS AND TREATMENT 2023-03-01 19:49:30 Doctor Unassigned, [place] [facility] TRANSTHORACIC ECHO (TTE) COMPLETE W/ CONTRAST 2023-02-16 13:56:56 Dedrick Toth [facility] TROPONIN I 2023-02-16 11:32:00 Dedrick Toth [facility] COMP. METABOLIC PANEL ([id number]) 2023-02-16 11:32:00 Dedrick Toth [facility] CBC WITH DIFF 2023-02-16 11:32:00 [facility] 2023-02-16 11:32:00 Dedrick Toth [facility] URINALYSIS 2023-02-15 21:18:00 Francisca Bryant [facility] HB ECG ROUTINE & RHYTHM STRIP 2023-02-15 20:15:35 Francisca Bryant [facility] XR CHEST 1 VW 2023-02-15 20:14:[address] [facility] AC PANEL 21 + LACTIC ACID 2023-02-15 20:02:00 Francisca Bryant [facility] MAGNESIUM 2023-02-15 20:01:00 Francisca Bryant [facility] TROPONIN I 2023-02-15 20:01:00 Francisca Bryant [facility] COMP. METABOLIC PANEL ([id number]) 2023-02-15 20:01:00 Francisca Bryant [facility] CBC WITH DIFF 2023-02-15 20:01:[address] [facility] ASSIGNMENT OF BENEFITS 2023-02-07 19:52:07 Docto r Unassigned, [place] [facility] CONSENT/REFUSAL FOR DIAGNOSIS AND TREATMENT 2023-02-07 19:51:03 Doctor Unassigned, [place] [facility] CONSENT/REFUSAL FOR DIAGNOSIS AND TREATMENT 2023-02-04 19:51:56 Doctor Unassigned, [place] [facility] TROPONIN I 2023-01-31 20:21:00 Rachael Flowers [facility] COMP. METABOLIC PANEL ([id number]) 2023-01-31 20:21:00 Rachael Flowers [facility] ETHANOL 2023-01-31 20:21:00 Rachael Flowers [facility] CBC WITH DIFF 2023-01-31 20:21:00 Rachael Flowers [facility] N-TERMINAL PRO-BNP 2023-01-31 20:21:00 Fernando Flowers [facility] CONSENT/REFUSAL FOR DIAGNOSIS AND TREATMENT 2023-01-31 18:39:05 Doctor Unassigned, [place] [facility] CONSENT/REFUSAL FOR DIAGNOSIS AND TREATMENT 2023-01-31 15:54:08 Doctor Unassigned, [place] [facility] CONSENT/REFUSAL FOR DIAGNOSIS AND TREATMENT 2023-01-31 14:29:18 Doctor Unassigned, [place] [facility] ACUTE CARE VENOUS BLOOD GAS 2023-01-27 10:45:00 Bessie Oswald [facility] TROPONIN I 2023-01-27 10:16:00 Bessie Oswald [facility] BASIC METABOLIC PANEL (NA, K, CL, CO2, GLUCOSE, BUN, CREATININE, CA) 2023-01-27 10:16:00 Bessie Oswald [facility] CBC WITH DIFF 2023-01-27 10:16:00 Bessie [facility] N-TERMINAL PRO-BNP 2023-01-27 10:16:00 Bessie Oswald [facility] URINALYSIS 2023-01-24 20:23:00 Stephanie Almonte [facility] CT HEAD WO CONTRAST 2023-01-24 19:38:00 Stephanie Almonte [facility] AC ABG + LACTIC ACID 2023-01-24 18:37:00 Stephanie Almonte [facility] AMMONIA, PLASMA 2023-01-24 18:19:00 Stephanie Almonte as [facility] RAPID STREP SCREEN FOR GROUP A 2023-01-24 18:19:00 Stephanie Almonte [facility] COVID-19 (ID NOW RAPID TESTING) 2023-01-24 18:19:00 Stephanie Almonte [facility] TROPONIN I 2023-01-24 17:52:00 Stephanie Almonte [facility] COMP. METABOLIC PANEL ([id number]) 2023-01-24 17:52:00 Stephanie Almonte [facility] ETHANOL 2023-01-24 17:52:00 Stephanie Almonte [facility] CBC WITH DIFF 2023-01-24 17:52:00 Stephanie Almonte [facility] N-TERMINAL PRO-BNP 2023-01-24 17:52:00 Stephanie Almonte [facility] COMP. METABOLIC PANEL ([id number]) 2023-01-21 20:58:00 Singer [facility] TROPONIN I 2023-01-21 20:05:00 Louis [facility] CBC WITH DIFF 2023-01-21 20:05:00 [place] [facility] N-TERMINAL PRO-BNP 2023-01-21 20:05:00 Singer [facility] AC PANEL 21 + LACTIC ACID 2023-01-19 08:31:00 Zechariah Hackett [facility] D-DIMER 2023-01-19 08:17:00 [facility] BASIC METABOLIC PANEL (NA, K, CL, CO2, GLUCOSE, BUN, CREATININE, CA) 2023-01-19 08:15:00 Iza Varma [facility] CBC WITH DIFF 2023-01-19 08:15:00 Iza [facility] N-TERMINAL PRO-BNP 2023-01-19 08:15:00 Jaymie Hacketthosh [facility] EKG-12 LEAD 2023-01-17 12:23:30 Marisol Devlin [facility] XR CHEST 1 VW 2023-01-17 11:25:05 Marisol Devlin [facility] TROPONIN I 2023-01-17 11:04:00 Marisol Devlin [facility] COMP. METABOLIC PANEL ([id number]) 2023-01-17 11:04:00 Marisol Devlin [facility] CBC WITH DIFF 2023-01-17 11:04:00 Marisol Devlin [facility] N-TERMINAL PRO-BNP 2023-01-17 11:04:00 Marisol Devlin [facility] COMP. METABOLIC PANEL ([id number]) 2022-12-26 17:23:00 Iza Varma [facility] XR CHEST 1 VW 2022-12-26 16:39:21 Iza Varma Un[facility] URINE DRUG (IMMUNOASSAY) - COMPREHENSIVE DRUG SCREEN 2022-12-26 16:29:00 Iza Varma [facility] URINALYSIS 2022-12-26 16:29:00 Iza Varma [facility] CBC WITH DIFF 2022-12-26 16:28:00 [facility] MAGNESIUM 2022-12-12 08:55:00 [facility] (NA, K, CL, CO2, GLUCOSE, BUN, CREATININE, CA) 2022-12-12 08:55:00 Karri [facility] LIPID PANEL ([id number])(TOTAL CHOLESTEROL, TRIGLYCERIDES, HDL) 2022-12-12 08:55:00 Karri [facility] N-TERMINAL PRO-BNP 2022-12-12 08:55:00 Karri [facility] MAGNESIUM 2022-12-11 08:30:00 Dedrick Toth [facility] OSMOLALITY, SERUM OR PLASMA 2022-12-11 08:30:00 Dedrick Toth [facility] FREE T4 2022-12-11 08:30:00 Dedrick Toth [facility] BASIC METABOLIC PANEL (NA, K, CL, CO2, GLUCOSE, BUN, CREATININE, CA) 2022-12-11 08:30:00 Dedrick Toth [facility] CBC WITH DIFF 2022-12-11 08:30:00 [facility] 2022-12-11 08:30:00 Dedrick Toth [facility] OSMOLALITY URINE 2022-12-11 03:24:00 Dedrick Toth [facility] SODIUM, URINE RANDOM 2022-12-11 03:24:00 Gunnar Toth [facility] URINALYSIS 2022-12-11 01:15:00 Louis [facility] HB ECG ROUTINE & RHYTHM STRIP 2022-12-11 00:38:04 Louis Hong [facility] CT HEAD WO CONTRAST 2022-12-11 00:32:23 Kameron Hong [facility] XR CHEST 1 VW 2022-12-11 00:29:20 [facility]22-12-11 00:08:00 Louis [facility] COMP. METABOLIC PANEL ([id number]) 2022-12-11 00:08:00 Louis Hong [facility] ETHANOL 2022-12-11 00:08:00 Louis [facility] CBC WITH DIFF 2022-12-11 00:08:00 Singer [facility] N-TERMINAL PRO-BNP 2022-12-11 00:08:00 Singer [facility] LACTIC ACID WHOLE BLOOD 2022-12-11 00:03:00 Angelita Hong [facility] AUTHORIZATION FOR RELEASE OF PHI 2022-12-09 05:01:00 Doctor Unassigned, [place] [facility] BASIC METABOLIC PANEL (NA, K, CL, CO2, GLUCOSE, BUN, CREATININE, CA) 2022-12-04 10:43:00 Ben Clive [facility] CBC WITH DIFF 2022-12-04 10:43:00 Clive Contreras [facility] OSMOLALITY URINE 2022-12-03 17:05:00 Lisseth De Santiago [facility] SODIUM, URINE RANDOM 2022-12-03 17:05:00 Haley De Santiago [facility] MAGNESIUM 2022-12-03 10:20:00 Clive Contreras [facility] BASIC METABOLIC PANEL (NA, K, CL, CO2, GLUCOSE, BUN, CREATININE, CA) 2022-12-03 10:20:00 Clive Contreras [facility] CBC WITH DIFF 2022-12-03 10:20:00 Clive Contreras [facility] BASIC METABOLIC PANEL (NA, K, CL, CO2, GLUCOSE, BUN, CREATININE, CA) 2022-12-02 05:27:00 Carlo Maki [facility] CONSENT/REFUSAL FOR DIAGNOSIS AND TREATMENT 2022-12-02 05:08:30 Doctor Unassigned, [place] [facility] HOSPITAL ADMISSION 2022-12-02 05:01:00 Doctor Un assigned, [place] [facility] COVID-19 (ID NOW RAPID TESTING) 2022-12-01 13:01:00 Ernesto Piper [facility] XR CHEST 1 VW 2022-12-01 12:40:25 Marisol Devlin [facility] EKG-12 LEAD 2022-12-01 12:17:26 Marisol Devlin [facility] ACUTE CARE ARTERIAL BLOOD GAS 2022-12-01 12:06:00 Marisol Devlin [facility] TROPONIN I 2022-12-01 11:51:00 Marisol Devlin [facility] BASIC METABOLIC PANEL (NA, K, CL, CO2, GLUCOSE, BUN, CREATININE, CA) 2022-12-01 11:51:00 Marisol Devlin [facility] CBC WITH DIFF 2022-12-01 11:51:00 Marisol Devlin [facility] BASIC METABOLIC PANEL (NA, K, CL, CO2, GLUCOSE, BUN, CREATININE, CA) 2022-11-28 16:51:00 Leila Chapa [facility] URIC ACID 2022-11-28 08:14:00 [facility] 2022-11-28 08:14:00 Vanessa Orellana [facility] BASIC METABOLIC PANEL (NA, K, CL, CO2, GLUCOSE, BUN, CREATININE, CA) 2022-11-28 08:14:00 Leila Chapa [facility] CBC WITH DIFF 2022-11-28 08:14:00 María Diaz [facility] BASIC METABOLIC PANEL (NA, K, CL, CO2, GLUCOSE, BUN, CREATININE, CA) 2022-11-28 04:16:00 [facility] BASIC METABOLIC PANEL (NA, K, CL, CO2, GLUCOSE, BUN, CREATININE, CA) 2022-11-28 00:33:00 Leila Chapa [facility] BASIC METABOLIC PANEL (NA, K, CL, CO2, GLUCOSE, BUN, CREATININE, CA) 2022-11-27 19:55:00 Ori [facility] MRSA / MSSA SCREEN BY PCR, NARES 2022-11-27 09:21:00 Ori [facility] OSMOLALITY, SERUM OR PLASMA 2022-11-27 09:10:00 Ori [facility] OSMOLALITY URINE 2022-11-27 09:04:00 María Diaz [facility] BASIC METABOLIC PANEL (NA, K, CL, CO2, GLUCOSE, BUN, CREATININE, CA) 2022-11-27 09:04:00 María Diaz [facility] URINE DRUG (IMMUNOASSAY) - COMPREHENSIVE DRUG SCREEN 2022-11-27 09:04:00 Ori [facility] URINALYSIS 2022-11-27 09:04:00 María Diaz [facility] CREATININE, URINE RANDOM 2022-11-27 09:04:00 Ben Diaz [facility] SODIUM, URINE RANDOM 2022-11-27 09:04:00 [facility] XR CHEST 1 VW 2022-11-27 06:15:54 [facility] MAGNESIUM 2022-11-27 05:33:00 María Diaz [facility] TROPONIN I 2022-11-27 05:33:00 Bessie Oswald [facility] COMP. METABOLIC PANEL ([id number]) 2022-11-27 05:33:00 Bessie Oswald [facility] ETHANOL 2022-11-27 05:33:00 Bessie Oswald [facility] CBC WITH DIFF 2022-11-27 05:33:00 Bessie [facility] GLYCOSYLATED HEMOGLOBIN (A1C) 2022-11-27 05:33:00 Leila Chapa [facility] N-TERMINAL PRO-BNP 2022-11-27 05:33:00 Bessie Oswald [facility] HB ECG ROUTINE & RHYTHM STRIP 2022-11-27 05:31:54 Bessie Oswald [facility] COMP. METABOLIC PANEL ([id number]) 2022-11-19 08:44:00 Iza Varma [facility] CBC WITH DIFF 2022-11-19 08:44:00 Iza Varma [facility] N-TERMINAL PRO-BNP 2022-11-19 08:44:00 Iza Varma [facility] BASIC METABOLIC PANEL (NA, K, CL, CO2, GLUCOSE, BUN, CREATININE, CA) 2022-11-11 10:52:00 Iza Eden Munira [facility] CBC WITH DIFF 2022-11-11 10:52:00 Meek [facility] BASIC METABOLIC PANEL (NA, K, CL, CO2, GLUCOSE, BUN, CREATININE, CA) 2022-11-11 02:16:00 [place] BASIC METABOLIC PANEL (NA, K, CL, CO2, GLUCOSE, BUN, CREATININE, CA) 2022-11-10 22:45:00 [place] [facility] BASIC METABOLIC PANEL (NA, K, CL, CO2, GLUCOSE, BUN, CREATININE, CA) 2022-11-10 17:27:00 [place] [facility] BASIC METABOLIC PANEL (NA, K, CL, CO2, GLUCOSE, BUN, CREATININE, CA) 2022-11-10 11:49:00 [place] [facility] MAGNESIUM 2022-11-10 07:14:00 Travis Zeng [facility] BASIC METABOLIC PANEL (NA, K, CL, CO2, GLUCOSE, BUN, CREATININE, CA) 2022-11-10 07:14:00 [place] [facility] CBC WITH DIFF 2022-11-10 07:14:00 [facility] XR CHEST 1 VW 2022-11-09 07:53:00 [facility] 2022-11-09 07:53:00 Marisol Devlin [facility] TROPONIN I 2022-11-09 07:53:00 Marisol Devlin [facility] COMP. METABOLIC PANEL ([id number]) 2022-11-09 07:53:00 Marisol Devlin [facility] CBC WITH DIFF 2022-11-09 07:53:00 Marisol Devlin [facility] N-TERMINAL PRO-BNP 2022-11-09 07:53:00 Marisol Devlin [facility] ACUTE CARE ARTERIAL BLOOD GAS 2022-11-09 07:50:00 Marisol Devlin [facility] HB ECG ROUTINE & RHYTHM STRIP 2022-11-09 07:39:47 Marisol Devlin [facility] ASSIGNMENT OF BENEFITS 2021-05-20 19:26:54 Docto r Unassigned, [place] [facility] POCT URINALYSIS AUTO 2020-12-18 19:04:00 Zeus Turner [facility] CT ABDOMEN PELVIS W CONTRAST 2020-12-12 17:25:03 Francisca Bryant [facility] BASIC METABOLIC PANEL (NA, K, CL, CO2, GLUCOSE, BUN, CREATININE, CA) 2020-12-12 16:47:00 Francisca Bryant [facility] CBC WITH DIFF 2020-12-12 16:47:00 [facility] 2020-12-12 16:47:00 [facility] PRACT[facility] 2020-12-12 16:28:57 Doctor Unassigned, [place] [facility] CONSENT/REFUSAL FOR DIAGNOSIS AND TREATMENT 2020-12-12 16:28:23 Doctor Unassigned, [place] [facility] POCT URINALYSIS AUTO 2020-12-08 18:56:00 Jeanette Mcdaniel [facility] CONSENT/REFUSAL FOR DIAGNOSIS AND TREATMENT 2020-12-08 18:26:17 Doctor Unassigned, [place] [facility] ASSIGNMENT OF BENEFITS 2020-12-08 18:25:58 Docto r Unassigned, [place] [facility] AUTHORIZATION FOR RELEASE OF PHI 2020-02-20 05:01:00 Doctor Unassigned, [place] [facility] NOTICE OF PRIVACY PRACTICES 2019-05-04 04:10:29 Doctor Unassigned, [place] [facility] CONSENT/REFUSAL FOR DIAGNOSIS AND TREATMENT 2019-05-04 04:10:09 Doctor Unassigned, [place] [facility] Encounters Start Date/Time End Date/Time Encounter Type Admission Type Attending Critical [facility] Care Department Encounter ID Source 2021-07-19 08:46:33 Emergency [facility] [id number] [facility] 2023-07-21 10:00:00 2023-07-21 10:00:00 Outpatient NOMI RIVERA SHIWAN [facility] [id number] [facility] 2023-07-15 00:00:00 2023-07-15 00:00:00 Case Management Nomi Mary [facility] 1.2.840.114 350.1.13.10 4.2.7.2.686 [id number] [facility] 2023-07-08 00:00:00 2023-07-08 00:00:00 Telephone Nomi Mary [facility] 1.2.840.114 350.1.13.10 4.2.7.2.686 [id number] [facility] 2023-07-08 00:00:00 2023-07-08 00:00:00 Orders Only Doctor Unassigned, [facility] 1.2.840.114 350.1.13.10 4.2.7.2.686 [id number] [facility] 2023-04-22 00:00:00 2023-04-22 00:00:00 Outpatient R NOMI MARY SHIWAN [facility] [id number] [facility] 2023-04-19 10:00:00 2023-04-19 10:53:24 Outpatient R NOMI MARY SHISDZain [facility] [id number] [facility] 2023-04-19 10:00:00 2023-04-19 10:53:24 Office Visit Nomi Mary [facility] 1..840.114 350.1.13.10 4.2.7.2.686 [id number] [id number] [facility] 2023-04-19 00:00:00 2023-04-19 00:00:00 Patient Outreach Marika Monge NEEL VEGA 1..840.114 350.1.13.10 4.2.7.2.686 [id number] [facility] 2023-03-15 07:16:00 2023-03-19 14:47:00 Inpatient EM Rudy [facility] [id number] [facility] 2023-03-01 16:30:00 2023-03-01 17:00:00 Office Visit Darrell [facility] 1.2.840.114 350.1.13.10 4.2.7.2.686 [id number] [id number] [facility] 2023-03-01 16:30:00 2023-03-01 16:30:00 [id number] 2023-03-01 00:00:00 2023-03-01 00:00:00 Orders Only Doctor Unassigned, [facility] 1..840.114 350.1.13.10 4.2.7.2.686 [id number] [id number] [facility] 2023-03-01 00:00:00 2023-03-01 00:00:00 Mily Flores REPLACED BY [facility] 1.2.840.114 350.1.13.10 4.2.7.2.686 [id number] [id number] [facility] 2023-02-21 00:00:00 2023-02-21 00:00:00 Transition of Care Taylor Frye 1.2.840.114 350.1.13.10 4.2.7.2.686 [id number] [facility] 2023-02-15 14:41:00 2023-02-18 16:11:00 Inpatient X TRAVIS ZENG [facility] [id number] [facility] 2023-02-15 14:41:00 2023-02-18 16:11:00 Hospital Encounter Iza Varma Sandra J [place], Jelani [facility] 1.2.840.114 350.1.13.10 4.2.7.2.686 [id number] [facility] 2023-02-07 14:30:00 2023-02-07 16:01:00 Emergency X PRADIP AUSTIN [facility] [id number] [facility] 2023-02-07 14:30:00 2023-02-07 16:01:00 Emergency Pradip Austin [facility] 1.2.840.114 350.1.13.10 4.2.7.2.686 [id number] [facility] 2023-02-07 10:20:00 2023-02-07 10:20:00 Outpatient CARL ALDRIDGE CHRISTINE [facility] [id number] [facility] 2023-02-05 14:53:00 2023-02-05 16:10:00 Emergency X HERMINIA CHO [facility] E[facility] [id number] [facility] 2023-02-05 14:53:00 2023-02-05 16:10:00 Emergency Herminia Cho [facility] 1.2.840.114 350.1.13.10 4.2.7.2.686 [id number] [facility] 2023-02-04 15:26:00 2023-02-04 16:25:00 Emergency FRANCISCA MAHONEY [facility] E[facility] [id number] [facility] 2023-02-04 15:26:00 2023-02-04 16:25:00 Emergency Francisca Bryant [facility] 1.2.840.114 350.1.13.10 4.2.7.2.686 [id number] [facility] 2023-02-03 17:46:00 2023-02-03 18:47:00 Emergency LOUIS THOMPSON [facility] ERT [id number] [facility] 2023-02-03 17:46:00 2023-02-03 18:47:00 Emergency X LOUIS HONG [facility] ERT [id number] [facility] 2023-02-03 17:46:00 2023-02-03 18:47:00 Emergency Hong Louis [facility] 1.2.840.114 350.1.13.10 4.2.7.2.686 [id number] [facility] 2023-02-03 12:43:00 2023-02-03 15:04:00 Emergency Bessie Oswald [facility] 1.2.840.114 350.1.13.10 4.2.7.2.686 [id number] [facility] 2023-02-02 16:49:00 2023-02-02 18:10:00 Emergency LOUIS THOMPSON [facility] ERT [id number] [facility] 2023-02-02 16:49:00 2023-02-02 18:10:00 Emergency Hong [facility] 1.2.840.114 350.1.13.10 4.2.7.2.686 [id number] [facility] 2023-01-31 13:55:00 2023-01-31 16:50:00 Emergency X RACHAEL FLOWERS [facility] ERT [id number] [facility] 2023-01-31 13:55:00 2023-01-31 16:50:00 Emergency X RACHAEL FLOWERS [facility] ERT [id number] [facility] 2023-01-31 13:55:00 2023-01-31 16:50:00 Emergency Kristie [facility] 1.2.840.114 350.1.13.10 4.2.7.2.686 [id number] [facility] 2023-01-31 11:11:00 2023-01-31 12:12:00 Emergency X NATHALIA LEOBARDO [facility] ERT [id number] [facility] 2023-01-31 11:11:00 2023-01-31 12:12:00 Emergency Nathalia Leobardo J [facility] 1.2.840.114 350.1.13.10 4.2.7.2.686 [id number] 084 [id number] [facility] 2023-01-31 09:51:00 2023-01-31 10:16:00 Emergency [facility] 1.2.840.114 350.1.13.10 4.2.7.2.686 [id number] [id number] [facility] 2023-01-29 08:08:00 2023-01-29 10:00:00 Emergency X JOEL HERMINIA [facility] ERT [id number] [facility] 2023-01-29 08:08:00 2023-01-29 10:00:00 Emergency Herminia Cho [facility] 1.2.840.114 350.1.13.10 4.2.7.2.686 [id number] [facility] 2023-01-27 04:50:00 2023-01-27 07:03:00 Emergency X BESSIE OSWALD [facility] ERT [id number] [facility] 2023-01-27 04:50:00 2023-01-27 07:03:00 Emergency AkileliceozechariahBessie C [facility] 1.2.840.114 350.1.13.10 4.2.7.2.686 [id number] [id number] [facility] 2023-01-27 00:00:00 2023-01-27 00:00:00 Telephone Nomi Mary [facility] 1.2.840.114 350.1.13.10 4.2.7.2.686 [id number] [facility] 2023-01-24 12:28:00 2023-01-24 16:16:00 Emergency X STEPHANIE ALMONTE [facility] ERT [id number] [facility] 2023-01-24 12:28:00 2023-01-24 16:16:00 Emergency Stephanie Almonte Meek [facility] 1.2.840.114 350.1.13.10 4.2.7.2.686 [id number] [facility] 2023-01-23 19:02:00 2023-01-23 20:36:00 Emergency X IZA VARMA [facility] ERT [id number] [facility] 2023-01-23 19:02:00 2023-01-23 20:36:00 Emergency Iza Varma [facility] 1.2.840.114 350.1.13.10 4.2.7.2.686 [id number] [facility] 2023-01-22 18:24:00 2023-01-22 19:55:00 Emergency X IZA VARMA [facility] ERT [id number] [facility] 2023-01-22 18:24:00 2023-01-22 19:55:00 Emergency Iza Varma [facility] 1.2.840.114 350.1.13.10 4.2.7.2.686 [id number] [facility] 2023-01-21 14:20:00 2023-01-21 18:14:00 Emergency X LOUIS HONG [facility] ERT [id number] [facility] 2023-01-21 14:20:00 2023-01-21 18:14:00 Emergency Louis Hong [facility] 1.2.840.114 350.1.13.10 4.2.7.2.686 [id number] [id number] [facility] 2023-01-20 00:00:00 2023-01-20 00:00:00 Transition of Care Taylor Frye NEEL GIORDANO 1.2.840.114 350.1.13.10 4.2.7.2.686 [id number] [facility] 2023-01-19 01:15:00 2023-01-19 19:40:00 [facility] , Iza Hinton Santhosh Morris, David [facility] 1.2.840.114 350.1.13.10 4.2.7.2.686 [id number] [facility] 2023-01-17 05:57:00 2023-01-17 07:37:00 Emergency X MARISOL DEVLIN [facility] ERT [id number] [facility] 2023-01-17 05:57:00 2023-01-17 07:37:00 Emergency Marisol Devlin [facility] 1.2.840.114 350.1.13.10 4.2.7.2.686 [id number] [facility] 2023-01-17 05:57:00 2023-01-17 07:37:00 Emergency X MARISOL DEVLIN [facility] ERT [id number] [facility] 2023-01-10 00:00:00 2023-01-10 00:00:00 Letter (Out) Darrell [facility] 1..840.114 350.1.13.10 4.2.7.2.686 [id number] [facility] 2023-01-07 14:30:00 2023-01-07 15:25:56 Outpatient [facility] [id number] [facility] 2023-01-07 14:30:00 2023-01-07 15:25:56 Office Visit Darrell [facility] 1..840.114 350.1.13.10 4.2.7.2.686 [id number] [facility] 2022-12-26 10:50:00 2022-12-26 14:12:00 Emergency X JESUSIZA [facility] ERT [id number] [facility] 2022-12-26 10:50:00 2022-12-26 14:12:00 Emergency Iza Varma [facility] 1..840.114 350.1.13.10 4.2.7.2.686 [id number] [id number] [facility] 2022-12-14 11:30:00 2022-12-14 11:30:00 Outpatient NOMI RIVERA SHIWAN [facility] [id number] [facility] 2022-12-14 00:00:00 2022-12-14 00:00:00 Transition of Care Taylor Frye 1..840.114 350.1.13.10 4.2.7.2.686 [id number] [facility] 2022-12-10 18:49:00 2022-12-12 14:35:00 Outpatient X TRAVIS ZENG [facility] [id number] [facility] 2022-12-10 18:49:00 2022-12-12 14:35:00 Hospital Encounter Louis Hong, Travis Varner [facility] 1.2.840.114 350.1.13.10 4.2.7.2.686 [id number] [id number] [facility] 2022-12-10 00:00:00 2022-12-10 00:00:00 Case Management Nmoi Mary [facility] 1.2.840.114 350.1.13.10 4.2.7.2.686 [id number] [id number] [facility] 2022-12-10 00:00:00 2022-12-10 00:00:00 Transition of Care Cecy Caro 1.2.840.114 350.1.13.10 4.2.7.2.686 [id number] [facility] 2022-12-09 00:00:00 2022-12-09 00:00:00 Orders Only Doctor Unassigned, [facility] 1.2.840.114 350.1.13.10 4.2.7.2.686 [id number] [facility] 2022-12-06 00:00:00 2022-12-06 00:00:00 Transition of Care Taylor Frye 1.2.840.114 350.1.13.10 4.2.7.2.686 [id number] [facility] 2022-12-02 00:13:00 2022-12-04 12:30:00 Hospital Encounter ShanthiRamóngardeniacorbin Swan, Clive Gutierrez [facility] 1.2.840.114 350.1.13.10 4.2.7.2.686 [id number] [facility] 2022-12-01 05:32:00 2022-12-01 09:08:00 Emergency ERNESTO SHANE CHARLES [facility] ERT [id number] [facility] 2022-12-01 05:32:00 2022-12-01 09:08:00 Emergency ClausJulianogavinErnesto Bowers Elizabeth [facility] 1..840.114 350.1.13.10 4.2.7.2.686 [id number] [facility] 2022-12-01 05:32:00 2022-12-01 09:08:00 Emergency U ERNESTO PIPER CHARLES [facility] ERT [id number] [facility] 2022-11-26 22:55:00 2022-11-28 13:50:00 Outpatient X LEILA CHAPA [facility] [id number] [facility] 2022-11-26 22:55:00 2022-11-28 13:50:00 Hospital Encounter Bessie Oswald David Abdullah [facility] 1..840.114 350.1.13.10 4.2.7.2.686 [id number] [facility] 2022-11-19 02:17:00 2022-11-19 05:12:00 Emergency X IZA VARMA [facility] ERT [id number] [facility] 2022-11-19 02:17:00 2022-11-19 05:12:00 Emergency Iza Varma [facility] 1.2.840.114 350.1.13.10 4.2.7.2.686 [id number] [facility] 2022-11-18 18:52:00 2022-11-18 20:29:00 Emergency X FRANCISCA BRYANT [facility] ERT [id number] [facility] 2022-11-18 18:52:00 2022-11-18 20:29:00 Emergency Francisca Bryant [facility] 1.2.840.114 350.1.13.10 4.2.7.2.686 [id number] [facility] 2022-11-17 00:00:00 2022-11-17 00:00:00 Telephone Nomi Mary [facility] 1.2840.114 350.1.13.10 4.2.7.2.686 [id number] [facility] 2022-11-12 00:00:00 2022-11-12 00:00:00 Transition of Care Taylor Frye 1.2840.114 350.1.13.10 4.2.7.2.686 [id number] [facility] 2022-11-09 01:32:00 2022-11-11 13:35:00 Inpatient X TRAVIS ZENG [facility] [id number] [facility] 2022-11-09 01:32:00 2022-11-11 13:35:00 Hospital Encounter ZainabjtMarisol Jelani [facility] 1.2840.114 350.1.13.10 4.2.7.2.686 [id number] [id number] [facility] 2021-05-22 00:00:00 2021-05-22 00:00:00 Telephone Jeanette Mcdaniel [facility] 1.2840.114 350.1.13.10 4.2.7.2.686 [id number] [facility] 2021-05-20 14:28:38 2021-05-20 14:43:38 Lap Checker Visit Remington, Anshu Lab Main Gokul Turner [facility] 1.2.840.114 350.1.13.10 4.2.7.2.686 [id number] [facility] 2021-05-20 14:30:00 2021-05-20 14:30:00 [id number] [facility] 2021-05-20 00:00:00 2021-05-20 00:00:00 Orders Only Doctor Unassigned, [facility] 1.2.840.114 350.1.13.10 4.2.7.2.686 [id number] [facility] 2021-05-20 00:00:00 2021-05-20 00:00:00 Telephone Gokul Turner [facility] 1.2.840.114 350.1.13.10 4.2.7.2.686 [id number] [facility] 2020-12-29 10:12:45 2020-12-29 11:07:51 [facility] 1.2.840.114 350.1.13.10 4.2.7.2.686 [id number] [facility] 2020-12-29 10:15:00 2020-12-29 10:15:00 Outpatient R GOKUL TURNER [facility] [id number] [facility] 2020-12-18 13:36:17 2020-12-18 14:58:35 Office Visit Gokul Turner, [facility] 1.2.840.114 350.1.13.10 4.2.7.2.686 [id number] [facility] 2020-12-18 14:00:00 2020-12-18 14:00:00 Outpatient R GOKUL TURNER [facility] [id number] [facility] 2020-12-16 00:00:00 2020-12-16 00:00:00 Outpatient R JEANETTE MCDANIEL [facility] [id number] [facility] 2020-12-16 00:00:00 2020-12-16 00:00:00 Telephone Jeanette Mcdaniel Jeramy [facility] 1.2.840.114 350.1.13.10 4.2.7.2.686 [id number] [facility] 2020-12-12 11:36:00 2020-12-12 13:42:00 Emergency Francisca Bryant [facility] 1.2.840.114 350.1.13.10 4.2.7.2.686 [id number] [facility] 2020-12-12 00:00:00 2020-12-12 00:00:00 Telephone Jeanette Mcdaniel [facility] 1.2.840.114 350.1.13.10 4.2.7.2.686 [id number] [facility] 2020-12-08 13:28:10 2020-12-08 14:09:14 Office Visit Violeta Jeanette A [facility] 1.2.840.114 350.1.13.10 4.2.7.2.686 [id number] [facility] 2020-12-08 13:30:00 2020-12-08 13:30:00 Outpatient R JEANETTE MCDANIEL [facility] [id number] [facility] 2020-12-08 00:00:00 2020-12-08 00:00:00 Orders Only Doctor Unassigned, [facility] 1.2.840.114 350.1.13.10 4.2.7.2.686 [id number] [id number] [facility] 2020-12-07 00:00:00 2020-12-07 00:00:00 Nurse Triage Herminia Perez [facility] 1.2.840.114 350.1.13.10 4.2.7.2.686 [id number] [facility] 2020-06-19 13:30:00 2020-06-19 13:30:00 Outpatient Tyrell Mckeon [facility] [id number] [facility] 2020-02-20 00:00:00 2020-02-20 00:00:00 Orders Only Doctor Unassigned, [place] [facility] 1.2.840.114 350.1.13.10 4.2.7.2.686 [id number] [id number] 2020-02-20 00:00:00 2020-02-20 00:00:00 Orders Only Doctor Unassigned, [place] [facility] 1.2.840.114 350.1.13.10 4.2.7.2.686 [id number] [facility] 2019-08-28 08:25:33 2019-08-28 11:54:00 Emergency X HERMINIA CHO [facility] E[facility] [id number] [facility] 2019-08-24 01:43:17 2019-08-24 03:52:00 Emergency X LOUIS HONG [facility] ERT [id number] [facility] 2019-05-03 23:28:18 2019-05-04 00:27:00 Emergency Ramesh [facility] 1.2.840.114 350.1.13.10 4.2.7.2.686 [id number] [id number] 2019-05-03 23:28:18 2019-05-04 00:27:00 Emergency Ramesh [facility] 1.2.840.114 350.1.13.10 4.2.7.2.686 [id number] [id number] [facility] 2019-05-03 00:00:00 2019-05-03 00:00:00 Orders Only Doctor Unassigned, [place] [facility] 1.2.840.114 350.1.13.10 4.2.7.2.686 [id number] [id number] 2019-05-03 00:00:00 2019-05-03 00:00:00 Orders Only Doctor Unassigned, [place] [facility] 1.2.840.114 350.1.13.10 4.2.7.2.686 [id number] [id number] [facility] Results Test Description Test Time Test Comments Results Result Co mments Source GLUCOSE BEDSIDE [id number] 07:35:00* Test Item Value Reference Range Interpretation Comme [facility] GLUCOSE BEDSIDE TESTING (paris t code = GLUBED) 170 MG/DL 60-99 H VITAMIN [id number] 15:12:00* Test Item Value Reference Range Interpretation Comme [facility] VITAMIN B12 (test code = VITB12) 738 pg/mL 239-931 N FOLIC [id number] 15:12:00* Test Item Value Reference Range Interpretation Comme [facility] FOLIC ACID (test code = FOLR) 4.9 ng/mL REFERENCE VALUES : NORMAL: 2.76 - >20 ng/ML DEFICIENT: 1.04 - 2.79 ng/ML COMPREHENSIVE METABOLIC [id number] 11:38:00* Test Item Value Reference Range Interpretation Comme [facility] SODIUM (test code = NA) 133 MMOL/L 137-145 L POTASSIUM (test code = K) 3.4 MMOL/L 3.5-5.1 L CHLORIDE (test code = CL) 89 MMOL/L 98-107 L CARBON DIOXIDE (test code = CO2) 37 MMOL/L 22-30 H GLUCOSE (test code = GLU) 139 MG/DL 74-106 H BLOOD UREA NITROGEN (test code = BUN) 16 MG/DL 9-20 N GLOMERULAR FILTRATION RATE (test code = GFR) > 60 The Glomerular Filtration Rate is a calculated parameterbased on serum Creatinine, patient age and sex. GFR valuesless than 60 mL/min/1.73 square meters are indicative ofChronic Kidney Disease. Values less than 15 mL/min/1.73square meters indicate Kidney failure. The calculation forGFR is based on the CKD-EPI (2021) calculation. This formulais race indifferent and is the recommended formula for GFRby the National Kidney Foundation for Adults.The GFR will not calculate if the sex is unknown or if thepatient's age is <18 years. CREATININE (test code = CREAT) 0.60 MG/DL 0.66-1.25 L TOTAL PROTEIN (test code = PROT) 5.1 G/DL 6.2-7.6 L [facility] Clinical D iagnostic has made us aware of newinformation regarding the potential interference ofEltrombopag (a bone marrow stimulant used to treatthrombocytonmenia and aplastic anemia) with specific assayson the [employer] 5600 of which Total Protein is one of thoseassays performed in our lab.Interference testing performed at Ortho determined thatEltrombopag does interfere with Vitros Total Protein asfollowsEltrombopag Interference for Vitros Product Total Protein: Eltrombopag Max Observed Avg. BiasConcentration Concentration Concentration 2.5 mg/dl 6.0 g/dl +0.41 +0.34 3.5 mg/dl 6.0 g/dl +0.50 +0.45 5 mg/dl 6.0 g/dl +0.73 +0.65 2.5 mg/dl 8.0 g/dl +0.44 +0.41 3.5 mg/dl 8.0 g/dl +0.55 +0.52 5 mg/dl 8.0 g/dl +0.86 +0.77 ALBUMIN (test code = ALB) 3.0 G/DL 3.5-5.0 L CALCIUM (test code = CA) 7.8 MG/DL 8.4-10.2 L BILIRUBIN TOTAL (test code = BILT) 0.4 MG/DL 0.2-1.3 N Eltrombopag Inte rference for Vitros Product TBil, BuBc: Assay Eltrombopag Analyte/ Max Observed Avg. Bias Concentration Concentration Concentration TBil 7mg/dl TBil/ 1.2mg/dl +0.23mg.dl +0.20mg/dlBuBc 3.5mg/dl Bu/0.8mg/dl +0.25mg/dl +0.24mg/dlBuBc 7 mg/dl Bu/14.2mg/dl +0.38mg/dl +0.25mg/dlBuBc 5mg/dl Bc/0mg/dl +0.25mg/dl +0.15mg/dlBuBc 3.5mg/dl Bc/2.8mg/dl +0.25mg/dl +0.23mg/dl SGOT/AST (test code = AST) 8 UNITS/L 17-59 L SGPT/ALT (test code = ALT) 10 UNITS/L 0-49 N ALKALINE PHOSPHATASE (test code = ALKP) 51 UNITS/L 38-126 N CBC W/AUTO [id number] 11:24:00* Test Item Value Reference Range Interpretation Comme nts WHITE BLOOD CELL (test code = WBC) 10.1 K/MM3 3.8-9.8 H RED BLOOD CELL (test code = RBC) 3.53 M/MM3 3.95-5.67 L HEMOGLOBIN (test code = HGB) 11.4 G/DL 12.4-16.7 L HEMATOCRIT (test code = HCT) 35.5 % 35.9-49.5 L MEAN CELL VOLUME (test code = MCV) 101 fL 81.7-96.1 H MEAN CELL HGB (test code = MCH) 32.3 pg 27.6-33.2 N MEAN CELL HGB CONCETRATION (test code = MCHC) 32.1 % 32.9-35.5 L RED CELL DISTRIBUTION WIDTH (test code = RDW) 12.5 % 12.1-15.2 N PLATELET COUNT (test code = PLT) 178 K/MM3 129-368 N MEAN PLATELET VOLUME (test c ode = MPV) 11.7 fl 7.4-10.4 H NEUTROPHIL % (test code = NT%) 92.4 % 43-75 H IMMATURE GRANULOCYTE % (test code = IG%) 0.3 % 0.0-2.0 N LYMPHOCYTE % (test code = LY%) 3.3 % 14-44 L MONOCYTE % (test code = MO%) 3.9 % 4-13 L EOSINOPHIL % (test code = EO%) 0.0 % 0-6 N BASOPHIL % (test code = BA%) 0.1 % 0-2 N NUCLEATED RBC % (test code = NRBC%) 0.0 % 0-1.0 N NEUTROPHIL # (test code = NT#) 9.37 K/mm3 2.0-7.6 H IMMATURE GRANULOCYTE # (test code = IG#) 0.03 x10 3/uL 0-0.03 N LYMPHOCYTE # (test code = LY#) 0.33 K/mm3 1.0-3.8 L MONOCYTE # (test code = MO#) 0.40 K/mm3 0.1-0.8 N EOSINOPHIL # (test code = EO#) 0.00 K/mm3 0.0-0.2 N BASOPHIL # (test code = BA#) 0.01 K/mm3 0.0-0.2 N NUCLEATED RBC # (test code = NRBC#) 0.00 K/mm3 0.0-0.1 N ARTERIAL BLOOD [id number] 17:25:00* Test Item Value Reference Range Interpretation Comme nts ARTERIAL BLOOD GAS PH (test code = PHA) 7.44 mmHg 7.35-7.45 N ARTERIAL BLOOD GAS PCO2 (test code = PCO2A) 50.6 mmHg 35.0-45.0 HH ARTERIAL BLOOD GAS PO2 (test code = PO2A) 52.9 mmol/L 80.0-100.0 L BICARBONATE TOTAL HCO3 (test code = HCO3) 33.2 mmol/L 20.0-26.0 H BASE EXCESS (test code = JIMMY) 7.5 mmol/L -3.0-3.0 H ABG O2 SATURATION (test code = SATA) 88.0 % 95.0-100.0 L All critical values report to and readback by DAYANA VELAZQUEZ by SYDAOO at 03/15/2023 4:56:13 PM ABG DELIVERY (test code = MARY) N/C ABG TEMPERATURE (test code = TEMPA) 37.0 C See_Comment [Automated [employer] ge] The system which generated this result transmitted reference range: 37. The reference range was not used to interpret this result as normal/abnormal. ABG SITE (test code = SITEA) LR ALLENS TEST (test code = ALLENS) Y CHECK FIO2 (test code = COHBGFFIO2) 36 % [id number] 12:29:00* Test Item Value Reference Range Interpretation Comme nts PHOSPHOROUS (test code = PHOS) 3.5 MG/DL 2.5-4.5 N ADD ON TEST? [id number] 12:29:00* Test Item Value Reference Range Interpretation Comme nts MAGNESIUM (test code = MAG) 1.8 MG/DL 1.6-2.3 N ADD ON TEST? YesARTERIAL BLOOD [id number] 12:26:00* Test Item Value Reference Range Interpretation Comme nts ARTERIAL BLOOD GAS PH (test code = PHA) 7.27 mmHg 7.35-7.45 L ARTERIAL BLOOD GAS PCO2 (test code = PCO2A) 79.0 mmHg 35.0-45.0 HH ARTERIAL BLOOD GAS PO2 (test code = PO2A) 106.2 mmol/L 80.0-100.0 H BICARBONATE TOTAL HCO3 (test code = HCO3) 35.4 mmol/L 20.0-26.0 H BASE EXCESS (test code = JIMMY) 5.8 mmol/L -3.0-3.0 H ABG O2 SATURATION (test code = SATA) 96.9 % 95.0-100.0 N All critical values report to and readback by DR DAMEON GARCIA by [id number] at 03/15/2023 12:12:31 PM ABG DELIVERY (test code = MARY) BIPAP ABG VENT RESP RATE (test code = RRA) 14.0 /MIN ABG PEEP (test code = PEEPA) 5.0 cmH2O ABG PRESSURE SUPPORT (test code = PSABG) 12 cmH2O ABG TEMPERATURE (test code = TEMPA) 37.0 C See_Comment [Automated message] The system which generated this result transmitted reference range: 37. The reference range was not used to interpret this result as normal/abnormal. ABG SITE (test code = SITEA) LR ALLENS TEST (test code = ALLENS) Y CHECK FIO2 (test code = COHBGFFIO2) 50 % TOTAL HGB (test code = THB) 13.0 g/L 12.0-16.0 N HGB O2 SAT (test code = HBOSAT) 94.0 % 95-100 L CARBOXYHEMOGLOBIN (test code = HOHGBT) 3.6 % 0.5-1.5 HH METHEMOGLOBIN (test code = METHGB) 0.2 % 0.4-1.5 L VENOUS BLOOD [id number] 11:46:00* Test Item Value Reference Range Interpretation Comme nts VENOUS BLOOD GAS PH (test code = PHV) 7.21 7.35-7.45 L VENOUS BLOOD GAS PCO2 (test code = PCO2V) 93.7 mmHg 35.0-45.0 HH VENOUS BLOOD GAS PO2 (test code = PO2V) 38 mmHg See_Comment [Automated message] The system which generated this result transmitted reference range: -40. The reference range was not used to interpret this result as normal/abnormal. VBG HCO3 (test code = HCO3V) 37 meq/L 20-26 H VBG BASE EXCESS (test code = PIERRE) 4.8 MMOL/L -3.0-3.0 H VENOUS BLOOD GAS OS SAT. (test code = O2SATV) 57 % 72-77 L FIO2 (test code = FIO2) 21 % VENOUS BLOOD GAS DELIVERY (test code = DELV) RM AIR VENOUS BLOOD GAS TEMP (test code = TEMPV) 37.0 C VENOUS BLOOD GAS SITE (test code = SITEV) UNKNOWN TOTAL HGB (test code = THB) 15.1 g/L 12.0-16.0 N HGB O2 SAT (test code = HBOSAT) 63.9 % 95-100 LL CARBOXYHEMOGLOBIN (test code = HOHGBT) 6.2 % 0.5-1.5 HH METHEMOGLOBIN (test code = METHGB) 0.0 % 0.4-1.5 L BASIC METABOLIC [id number] 07:06:00* Test Item Value Reference Range Interpretation Comme nts SODIUM (test code = NA) 128 MMOL/L 137-145 L POTASSIUM (test code = K) 5.4 MMOL/L 3.5-5.1 H CHLORIDE (test code = CL) 90 MMOL/L 98-107 L CARBON DIOXIDE (test code = CO2) 36 MMOL/L 22-30 H ANION GAP (test code = GAP) 7 MMOL/L 14-24 L GLUCOSE (test code = GLU) 109 MG/DL 74-106 H BLOOD UREA NITROGEN (test code = BUN) 17 MG/DL 9-20 N GLOMERULAR FILTRATION RATE (test code = GFR) > 60 The Glomerular Filtration Rate is a calculated parameterbased on serum Creatinine, patient age and sex. GFR valuesless than 60 mL/min/1.73 square meters are indicative ofChronic Kidney Disease. Values less than 15 mL/min/1.73square meters indicate Kidney failure. The calculation forGFR is based on the CKD-EPI (2020) calculation. This formulais race indifferent and is the recommended formula for GFRby the National Kidney Foundation for Adults.The GFR will not calculate if the sex is unknown or if thepatient's age is <18 years. CREATININE (test code = CREAT) 0.70 MG/DL 0.66-1.25 N CALCIUM (test code = CA) 7.7 MG/DL 8.4-10.2 L NT PRO-BRAIN NATRIURETIC [id number] 07:06:00* Test Item Value Reference Range Interpretation Comme nts NT PRO-BRAIN NATRIURETIC PEPTI (test code = PROBNP) 79.0 pg/mL INTERPRETAT ION OF RESULTS Results of this test should be used in accordance with the appropriate clinical guidelines and in conjunction with clinical presentation and other diagnostic tests. Clinical guidelines recommend using natriuretic peptides in both Emergency Department (ED) and outpatient settings for diagnosis or exclusion of heart failure (HF). The performance of the VITROS NT-proBNP II test was evaluated separately in each of these settings using published age-independent and age-dependent cutoffs. EMERGENCY DEPARTMENT SETTINGS/INPATIENT: For patients presenting to the ED settings with acute or worsening dyspnea and clinical suspicion of HF, the VITROS NT-proBNP II test results should be interpreted as indicated in the table below. NT-proBNP II Test Age Group Interpretation of Results Results (pg/mL) <300 All Negative: Heart Failure Unlikely ----------------------> =300 to <450 22-<50 [place]: Result >=300 to <900 50-<75 Indeterminate >=300 to <1800 >=75 - Consider other causes of NT-proBNP elevation -------------->=450 22-<50 >=900 50-<75 Positive: Heart Failure likely >=1800 >=75 OUTPATIEN T SETTINGS: In the outpatient settings, the optimal use of natriuretic peptides is to exclude HF. Therefore, a lower rule-out cutoff which increases sensitivity and negative predictive value is needed, as patients can present with limited, less acute HF symptoms. For ambulatory patients presenting to outpatient facilities with clinical suspicion of HF not previously diagnosed and at least one sign, symptom or risk factor for HF, the VITROSNT-proBNP II test results should be interpreted as indicatedin the table below. NT-proBNP II Test Age Group Interpretation of Results Results (pg/mL) <125 All Negative: Heart Failure Unlikely -------------->=125 All Consider Heart Failure as well as other causes* of NT-proBNP elevation. [id number] 07:06:00* Test Item Value Reference Range Interpretation Comme nts TROPONIN-I (test code = TROPI) < 0.012 NG/ML 0.012-0.033 L - XR CHEST [id number] 06:59:00 [facility] : 1960 Sex: M Patient Name: THIERRY MONGE Unit No: [id number] EXAMS: CPT CODE: [id number] XR CHEST 1V 94191 EXAMINATION: - XRCHEST 1V HISTORY: Chest pain COMPARISON: Chest x-ray [...] MD CC: Melina Gannon DO Technologist: Alex Vinson(RT) Transcrpt Date/Tm/Trnsp: 03/15/2023 (0659) [email or web address] Orig Print D/T: S: 03/15/2023 (0702) [facility] NAME: THIERRY MONGE [id number] PHYS: Melina [place] [address] : 1960 AGE: 62 SEX: M LOC: RUCHI PHONE #: [phone] EXAM DATE: 03/15/2023STATUS: REG ER FAX #: [phone] RADIOLOGY NO: PAGE 1 Signed ReportCBC W/O [id number] 06:42:00* Test Item Value Reference Range Interpretation Comme nts WHITE BLOOD CELL (test code = WBC) 7.4 K/MM3 3.8-9.8 N RED BLOOD CELL (test code = RBC) 3.53 M/MM3 3.95-5.67 L HEMOGLOBIN (test code = HGB) 11.5 G/DL 12.4-16.7 L HEMATOCRIT (test code = HCT) 35.8 % 35.9-49.5 L MEAN CELL VOLUME (test code = MCV) 101 fL 81.7-96.1 H MEAN CELL HGB (test code = MCH) 32.6 pg 27.6-33.2 N MEAN CELL HGB CONCETRATION (test code = MCHC) 32.1 % 32.9-35.5 L RED CELL DISTRIBUTION WIDTH (test code = RDW) 12.4 % 12.1-15.2 N PLATELET COUNT (test code = PLT) 174 K/MM3 129-368 N NEUTROPHIL # (test code = NT#) 6.76 K/mm3 2.0-7.6 N IMMATURE GRANULOCYTE # (test code = IG#) 0.02 x10 3/uL 0-0.03 N LYMPHOCYTE # (test code = LY#) 0.51 K/mm3 1.0-3.8 L MONOCYTE # (test code = MO#) 0.10 K/mm3 0.1-0.8 N EOSINOPHIL # (test code = EO#) 0.00 K/mm3 0.0-0.2 N BASOPHIL # (test code = BA#) 0.01 K/mm3 0.0-0.2 N NUCLEATED RBC # (test code = NRBC#) 0.00 K/mm3 0.0-0.1 N TROPONIN [id number] 21:12:01* Test Item Value Reference Range Interpretation Comme nts TROPONIN I (test code = 6428416731) <=0.034 OMAYRA (test code = OMAYRA) Reference [...] of biotin. Lab Interpretation (test code = 20806-8) Normal [facility]. METABOLIC PANEL (34575)2023-02-15 21:00:57* Test Item Value Reference Range Interpretation Comme nts NA (test code = 4779744452) 133 mmol/L 135-145 L K (test code = 1290839357) 4.5 mmol/L 3.5-5.0 CL (test code = 0843303445) 90 mmol/L 98-108 L CO2 TOTAL (test code = 6720179417) 40 mmol/L 23-31 H AGAP (test code = 5785299548) 3 2-16 BUN (test code = 5778779098) 25 mg/dL 7-23 H GLUCOSE (test code = 1342199158) 107 mg/dL 70-110 CREATININE (test code = 4208328488) 0.88 mg/dL 0.60-1.25 TOTAL BILI (test code = 6658261262) 1.6 mg/dL 0.1-1.1 H CALCIUM (test code = 6301783225) 8.9 mg/dL 8.6-10.6 T PROTEIN (test code = 6444604824) 6.1 g/dL 6.3-8.2 L ALBUMIN (test code = 2202844317) 3.7 g/dL 3.5-5.0 ALK PHOS (test code = 4719461406) 56 U/L 34-122 ALTv (test code = 1742-6) 14 U/L 5-50 AST(SGOT) (test code = 5770843858) 12 U/L 13-40 L eGFR (test code = 4949627345) 87.2 mL/min/1.73m2 OMAYRA (test code = OMAYRA) Association of [...] or abnormalities in imaging tests). Lab Interpretation (test code = 67783-8) [facility] 21:00:57* Test Item Value Reference Range Interpretation Comme nts MAGNESIUM (test code = 1996275344) 2.0 mg/dL 1.7-2.4 Lab Interpretation (test cod e = 35505-8) Normal [facility] WITH [id number] 20:53:39* Test Item Value Reference Range Interpretation Comme nts WBC (test code = 6690-2) 9.03 See_Comment [Automated [employer]] The system which generated this result transmitted reference range: 4.20 - 10.70 10*3/?L. The reference range was not used to interpret this result as normal/abnormal. RBC (test code = 789-8) 4.50 See_Comment [Automated [employer]] The system which generated this result transmitted reference range: 4.26 - 5.52 10*6/?L. The reference range was not used to interpret this result as normal/abnormal. HGB (test code = 718-7) 14.7 g/dL 12.2-16.4 HCT (test code = 4544-3) 44.5 % 38.4-49.3 MCV (test code = 787-2) 98.9 fL 81.7-95.6 H MCH (test code = 785-6) 32.7 pg 26.1-32.7 MCHC (test code = 786-4) 33.0 g/dL 31.2-35.0 RDW-SD (test code = 70718-4) 50.1 fL 38.5-51.6 RDW-CV (test code = 788-0) 13.6 % 12.1-15.4 PLT (test code = 777-3) 223 See_Comment [Automated messa ge] The system which generated this result transmitted reference range: 150 - 328 10*3/?L. The reference range was not used to interpret this result as normal/abnormal. MPV (test code = 38302-2) 12.1 fL 9.8-13.0 NRBC/100 WBC (test code = 9615650069) 0.0 See_Comment [Automated me ssage] The system which generated this result transmitted reference range: 0.0 - 10.0 /100 WBCs. The reference range was not used to interpret this result as normal/abnormal. NRBC x10^3 (test code = 9060983902) See_Comment [Automated messa ge] The system which generated this result transmitted reference range: 10*3/?L. The reference range was not used to interpret this result as normal/abnormal. GRAN MAT (NEUT) % (test code = 770-8) 72.8 % IMM GRAN % (test code = 7009046818) 0.90 % LYMPH % (test code = 736-9) 17.7 % MONO % (test code = 5905-5) 7.4 % EOS % (test code = 713-8) 0.9 % BASO % (test code = 706-2) 0.3 % GRAN MAT x10^3(ANC) (test code = 9945827207) 6.57 10*3/uL 1.99-6.95 IMM GRAN x10^3 (test code = 8138851189) 0.08 10*3/uL 0.00-0.06 H LYMPH x10^3 (test code = 731-0) 1.60 10*3/uL 1.09-3.23 MONO x10^3 (test code = 742-7) 0.67 10*3/uL 0.36-1.02 EOS x10^3 (test code = 711-2) 0.08 10*3/uL 0.06-0.53 BASO x10^3 (test code = 704-7) 0.03 10*3/uL 0.01-0.09 Lab Interpretation (test code = 53941-4) [facility] + LACTIC [id number] 20:11:20* Test Item Value Reference Range Interpretation Comme nts PH (test code = 5142615393) 7.33 7.32-7.42 PCO2 ERVIN (test code = 6995406020) 75 See_Comment H [Automated messa ge] The system which generated this result transmitted reference range: 41 - 51 mmHg. The reference range was not used to interpret this result as normal/abnormal. PO2 ERVIN (test code = 2261609395) 20 See_Comment L [Automated messa ge] The system which generated this result transmitted reference range: 25 - 40 mmHg. The reference range was not used to interpret this result as normal/abnormal. HCO3 ERVIN (test code = 9325032969) 39 See_Comment H [Automated messa ge] The system which generated this result transmitted reference range: 24 - 28 mEq/L. The reference range was not used to interpret this result as normal/abnormal. AC VBE(BEAKER) (test code = 4807241759) 9.1 mEq/L THB ERVIN (test code = 0005290882) 15.9 g/dL 13.5-18.0 %O2HB ERVIN (test code = 4017948815) 30.0 % 52.0-63.0 L %COHB ERVIN (test code = 7188043153) 4.1 % 0.0-1.5 H %METHB ERVIN (test code = 4212459619) 0.3 % 0.4-1.5 L VOL%O2 ERVIN (test code = 9478641203) 6.7 % 6.0-12.0 NA (test code = 1909780476) 137 mmol/L 135-145 K+ (test code = 8809159370) 4.5 mmol/L 3.5-5.0 AC CA IONZ (test code = 3926106375) 4.60 mg/dL 4.50-5.30 GLUCOSE (test code = 9726844077) 113 mg/dL 70-110 H LACTIC ACID (test code = 7289595803) 1.65 mmol/L 0.50-2.20 Lab Interpretation (test code = 78648-0) [facility] [id number] 21:20:05* Test Item Value Reference Range Interpretation Comme nts TROPONIN I (test code = 6894941191) 0.005 ng/mL <=0.034 OMAYRA (test code = OMAYRA) Reference [...] of biotin. Lab Interpretation (test code = 30191-3) Normal [facility]AL [id number] 21:17:24* Test Item Value Reference Range Interpretation Comme [facility] NT-proBNP (test code = 0267091912) 712 pg/mL <=125 H OMAYRA (test code = OMAYRA) Biotin has been reported to cause a negative bias, interpret results relative to patient's use of biotin. Lab Interpretation (test code = 90171-9) Abnormal [facility]ETHANOL2023-[facility]-15 21:13:47 ALCOHOL<10mg/dL01/31/2023 4:13 PM [facility]<10 [id number] Toxic>100 Depression of [employer]>400 Fatalities [facility]ortedR[facility] HospitalCOMP. METABOLIC PANEL (32175)2023-01-31 21:10:01* Test Item Value Reference Range Interpretation Comme nts NA (test code = 1419430883) 142 mmol/L 135-145 K (test code = 7654374724) 4.7 mmol/L 3.5-5.0 CL (test code = 5325140039) 99 mmol/L 98-108 CO2 TOTAL (test code = 8206829759) 37 mmol/L 23-31 H AGAP (test code = 0014504928) 6 2-16 BUN (test code = 9108096979) 30 mg/dL 7-23 H GLUCOSE (test code = 1130150445) 100 mg/dL 70-110 CREATININE (test code = 3159145037) 0.61 mg/dL 0.60-1.25 TOTAL BILI (test code = 6137557592) 0.6 mg/dL 0.1-1.1 CALCIUM (test code = 0553980809) 8.8 mg/dL 8.6-10.6 T PROTEIN (test code = 3129357915) 5.9 g/dL 6.3-8.2 L ALBUMIN (test code = 4326582352) 3.5 g/dL 3.5-5.0 ALK PHOS (test code = 1139834304) 42 U/L 34-122 ALTv (test code = 1742-6) 16 U/L 5-50 AST(SGOT) (test code = 8450551194) 12 U/L 13-40 L eGFR (test code = 7681533921) 133.1 mL/min/1.73m2 OMAYRA (test code = OMAYRA) Association of [...] or abnormalities in imaging tests). Lab Interpretation (test code = 84523-1) Abnormal [facility] WITH [id number] 20:59:58* Test Item Value Reference Range Interpretation Comme nts WBC (test code = 6690-2) 13.02 See_Comment H [Automated message] The system which generated this result transmitted reference range: 4.20 - 10.70 10*3/?L. The reference range was not used to interpret this result as normal/abnormal. RBC (test code = 789-8) 4.09 See_Comment L [Automated message] The system which generated this result transmitted reference range: 4.26 - 5.52 10*6/?L. The reference range was not used to interpret this result as normal/abnormal. HGB (test code = 718-7) 12.8 g/dL 12.2-16.4 HCT (test code = 4544-3) 41.9 % 38.4-49.3 MCV (test code = 787-2) 102.4 fL 81.7-95.6 H MCH (test code = 785-6) 31.3 pg 26.1-32.7 MCHC (test code = 786-4) 30.5 g/dL 31.2-35.0 L RDW-SD (test code = 74991-4) 61.6 fL 38.5-51.6 H RDW-CV (test code = 788-0) 16.2 % 12.1-15.4 H PLT (test code = 777-3) 250 See_Comment [Automated message] The system which generated this result transmitted reference range: 150 - 328 10*3/?L. The reference range was not used to interpret this result as normal/abnormal. MPV (test code = 06893-5) 10.5 fL 9.8-13.0 NRBC/100 WBC (test code = 0099759355) 0.0 See_Comment [Automated message] The system which generated this result transmitted reference range: 0.0 - 10.0 /100 WBCs. The reference range was not used to interpret this result as normal/abnormal. NRBC x10^3 (test code = 0195588035) See_Comment [Automated message] The system which generated this result transmitted reference range: 10*3/?L. The reference range was not used to interpret this result as normal/abnormal. GRAN MAT (NEUT) % (test code = 770-8) 90.9 % IMM GRAN % (test code = 5477979792) 1.20 % LYMPH % (test code = 736-9) 3.9 % MONO % (test code = 5905-5) 3.8 % EOS % (test code = 713-8) 0.0 % BASO % (test code = 706-2) 0.2 % GRAN MAT x10^3(ANC) (test code = 8715984340) 11.83 10*3/uL 1.99-6.95 H IMM GRAN x10^3 (test code = 3304523580) 0.16 10*3/uL 0.00-0.06 H LYMPH x10^3 (test code = 731-0) 0.51 10*3/uL 1.09-3.23 L MONO x10^3 (test code = 742-7) 0.49 10*3/uL 0.36-1.02 EOS x10^3 (test code = 711-2) 0.06-0.53 L BASO x10^3 (test code = 704-7) 0.03 10*3/uL 0.01-0.09 Lab Interpretation (test code = 29108-9) [id number] 11:16:36* Test Item Value Reference Range Interpretation Comme nts TROPONIN I (test code = 5168222778) 0.002 ng/mL <=0.034 OMAYRA (test code = OMAYRA) Reference [...] of biotin. Lab Interpretation (test code = 45103-6) Normal [facility]MINAL [id number] 11:13:18* Test Item Value Reference Range Interpretation Comme nts NT-proBNP (test code = 1631843495) 112 pg/mL <=125 OMAYRA (test code = OMAYRA) Biotin has been reported to cause a negative bias, interpret results relative to patient's use of biotin. Lab Interpretation (test code = 60806-5) Normal [facility] METABOLIC PANEL (NA, K, CL, CO2, GLUCOSE, BUN, CREATININE, CA)2023-01-27 11:04:56* Test Item Value Reference Range Interpretation Comme nts NA (test code = 4427642188) 136 mmol/L 135-145 K (test code = 8285650888) 4.1 mmol/L 3.5-5.0 CL (test code = 8175199676) 96 mmol/L 98-108 L CO2 TOTAL (test code = 8613045149) 34 mmol/L 23-31 H AGAP (test code = 4801436477) 6 2-16 BUN (test code = 1921677634) 22 mg/dL 7-23 GLUCOSE (test code = 1069258215) 117 mg/dL 70-110 H CREATININE (test code = 2155489695) 0.55 mg/dL 0.60-1.25 L CALCIUM (test code = 8872548033) 8.4 mg/dL 8.6-10.6 L eGFR (test code = 7425764096) 150.0 mL/min/1.73m2 OMAYRA (test code = OMAYRA) Association of [...] or abnormalities in imaging tests). Lab Interpretation (test code = 34292-0) Abnormal [facility] WITH [id number] 10:38:33* Test Item Value Reference Range Interpretation Comme nts WBC (test code = 6690-2) 9.56 See_Comment [[employer]] The system which generated this result transmitted reference range: 4.20 - 10.70 10*3/?L. The reference range was not used to interpret this result as normal/abnormal. RBC (test code = 789-8) 4.31 See_Comment [[employer]] The system which generated this result transmitted reference range: 4.26 - 5.52 10*6/?L. The reference range was not used to interpret this result as normal/abnormal. HGB (test code = 718-7) 13.6 g/dL 12.2-16.4 HCT (test code = 4544-3) 42.8 % 38.4-49.3 MCV (test code = 787-2) 99.3 fL 81.7-95.6 H MCH (test code = 785-6) 31.6 pg 26.1-32.7 MCHC (test code = 786-4) 31.8 g/dL 31.2-35.0 RDW-SD (test code = 37540-0) 56.7 fL 38.5-51.6 H RDW-CV (test code = 788-0) 15.3 % 12.1-15.4 PLT (test code = 777-3) 220 See_Comment [Automated messa ge] The system which generated this result transmitted reference range: 150 - 328 10*3/?L. The reference range was not used to interpret this result as normal/abnormal. MPV (test code = 40171-9) 10.6 fL 9.8-13.0 NRBC/100 WBC (test code = 8118271263) 0.0 See_Comment [Automated me ssage] The system which generated this result transmitted reference range: 0.0 - 10.0 /100 WBCs. The reference range was not used to interpret this result as normal/abnormal. NRBC x10^3 (test code = 6842349387) See_Comment [Automated messa ge] The system which generated this result transmitted reference range: 10*3/?L. The reference range was not used to interpret this result as normal/abnormal. GRAN MAT (NEUT) % (test code = 770-8) 60.0 % IMM GRAN % (test code = 9516835957) 0.70 % LYMPH % (test code = 736-9) 26.5 % MONO % (test code = 5905-5) 11.4 % EOS % (test code = 713-8) 0.9 % BASO % (test code = 706-2) 0.5 % GRAN MAT x10^3(ANC) (test code = 8501370103) 5.73 10*3/uL 1.99-6.95 IMM GRAN x10^3 (test code = 9902928879) 0.07 10*3/uL 0.00-0.06 H LYMPH x10^3 (test code = 731-0) 2.53 10*3/uL 1.09-3.23 MONO x10^3 (test code = 742-7) 1.09 10*3/uL 0.36-1.02 H EOS x10^3 (test code = 711-2) 0.09 10*3/uL 0.06-0.53 BASO x10^3 (test code = 704-7) 0.05 10*3/uL 0.01-0.09 Lab Interpretation (test code = 94311-2) Abnormal [facility], [id number] 18:51:59* Test Item Value Reference Range Interpretation Comme nts AMMONIA (test code = 9265015518) 9-33 L Lab Interpretation (test cod e = 69920-0) [facility] + LACTIC [id number] 18:40:53* Test Item Value Reference Range Interpretation Comme nts PH (test code = 2) 7.43 7.35-7.45 PCO2 (test code = 3367870906) 53 See_Comment H [Automated messa ge] The system which generated this result transmitted reference range: 35 - 45 mmHg. The reference range was not used to interpret this result as normal/abnormal. PO2 (test code = 6483368418) 49 See_Comment L [Automated messa ge] The system which generated this result transmitted reference range: 80 - 100 mmHg. The reference range was not used to interpret this result as normal/abnormal. HCO3 (test code = 3900337648) 34 See_Comment H [Automated messa ge] The system which generated this result transmitted reference range: 22 - 26 mEq/L. The reference range was not used to interpret this result as normal/abnormal. BE (test code = 5475714410) 7.8 See_Comment H [Automated messa ge] The system which generated this result transmitted reference range: -3.0 - 3.0 mEq/L. The reference range was not used to interpret this result as normal/abnormal. LACTIC ACID (test code = 8615074014) 0.92 mmol/L 0.50-2.20 Lab Interpretation (test code = 69943-7) [facility]normal [facility]rop[facility] [id number] 18:28:26* Test Item Value Reference Range Interpretation Comme nts TROPONIN I (test code = 5276018057) 0.003 ng/mL <=0.034 OMAYRA (test code = OMAYRA) Reference [...] of biotin. Lab Interpretation (test code = 47476-7) Normal [facility] [id number] 18:25:29* Test Item Value Reference Range Interpretation Comme nts NT-proBNP (test code = 4445305918) 376 pg/mL <=125 H OMAYRA (test code = OMAYRA) Biotin has been reported to cause a negative bias, interpret results relative to patient's use of biotin. Lab Interpretation (test code = 47034-2) [facility] (07356)2023-01-24 18:24:03* Test Item Value Reference Range Interpretation Comme nts NA (test code = 2299111371) 135 mmol/L 135-145 K (test code = 5527721996) 4.0 mmol/L 3.5-5.0 CL (test code = 1509383257) 90 mmol/L 98-108 L CO2 TOTAL (test code = 6812804840) 43 mmol/L 23-31 H AGAP (test code = 5235587829) 2 2-16 BUN (test code = 5316291095) 12 mg/dL 7-23 GLUCOSE (test code = 8508422029) 92 mg/dL 70-110 CREATININE (test code = 3163750802) 0.58 mg/dL 0.60-1.25 L TOTAL BILI (test code = 4245588307) 1.3 mg/dL 0.1-1.1 H CALCIUM (test code = 8674415374) 8.6 mg/dL 8.6-10.6 T PROTEIN (test code = 8286593098) 6.0 g/dL 6.3-8.2 L ALBUMIN (test code = 3864160762) 3.6 g/dL 3.5-5.0 ALK PHOS (test code = 4483153547) 52 U/L 34-122 ALTv (test code = 1742-6) 17 U/L 5-50 AST(SGOT) (test code = 4786928059) 10 U/L 13-40 L eGFR (test code = 6458081313) 141.1 mL/min/1.73m2 OMAYRA (test code = OMAYRA) Association of [...] or abnormalities in imaging tests). Lab Interpretation (test code = 91083-2) [facility] 18:23:38 ALCOHOL<10mg/dL01/24/2023 1:23 PM [facility]<10 Fmmomcwd81-973 Toxic>100 Depression of [employer]>400 [facility]ortedR[facility]CBC with Qbyyvhocbbog8591-30-12 18:09:00* Test Item Value Reference Range Interpretation Comme nts WBC (test code = 6690-2) 7.84 See_Comment [Automated [employer]] The system which generated this result transmitted reference range: 4.20 - 10.70 10*3/?L. The reference range was not used to interpret this result as normal/abnormal. RBC (test code = 789-8) 4.46 See_Comment [Automated [employer]] The system which generated this result transmitted reference range: 4.26 - 5.52 10*6/?L. The reference range was not used to interpret this result as normal/abnormal. HGB (test code = 718-7) 13.7 g/dL 12.2-16.4 HCT (test code = 4544-3) 45.0 % 38.4-49.3 MCV (test code = 787-2) 100.9 fL 81.7-95.6 H MCH (test code = 785-6) 30.7 pg 26.1-32.7 MCHC (test code = 786-4) 30.4 g/dL 31.2-35.0 L RDW-SD (test code = 65453-1) 59.7 fL 38.5-51.6 H RDW-CV (test code = 788-0) 15.8 % 12.1-15.4 H PLT (test code = 777-3) 239 See_Comment [Automated [employer] ge] The system which generated this result transmitted reference range: 150 - 328 10*3/?L. The reference range was not used to interpret this result as normal/abnormal. MPV (test code = 08023-8) 10.5 fL 9.8-13.0 NRBC/100 WBC (test code = 2999754679) 0.0 See_Comment [Automated me ssage] The system which generated this result transmitted reference range: 0.0 - 10.0 /100 WBCs. The reference range was not used to interpret this result as normal/abnormal. NRBC x10^3 (test code = 1691547308) See_Comment [Automated messa ge] The system which generated this result transmitted reference range: 10*3/?L. The reference range was not used to interpret this result as normal/abnormal. GRAN MAT (NEUT) % (test code = 770-8) 64.5 % IMM GRAN % (test code = 0266889781) 0.40 % LYMPH % (test code = 736-9) 23.1 % MONO % (test code = 5905-5) 9.8 % EOS % (test code = 713-8) 1.8 % BASO % (test code = 706-2) 0.4 % GRAN MAT x10^3(ANC) (test code = 5235692734) 5.06 10*3/uL 1.99-6.95 IMM GRAN x10^3 (test code = 9605148417) 0.03 10*3/uL 0.00-0.06 LYMPH x10^3 (test code = 731-0) 1.81 10*3/uL 1.09-3.23 MONO x10^3 (test code = 742-7) 0.77 10*3/uL 0.36-1.02 EOS x10^3 (test code = 711-2) 0.14 10*3/uL 0.06-0.53 BASO x10^3 (test code = 704-7) 0.03 10*3/uL 0.01-0.09 Lab Interpretation (test code = 98033-8) [facility] (49125[facility]2023-01-21 21:33:50* Test Item Value Reference Range Interpretation Comme nts NA (test code = 3756692059) 136 mmol/L 135-145 K (test code = 0589451679) 4.3 mmol/L 3.5-5.0 CL (test code = 8610555187) 95 mmol/L 98-108 L CO2 TOTAL (test code = 4095436548) 38 mmol/L 23-31 H AGAP (test code = 6506832790) 3 2-16 BUN (test code = 0256460931) 17 mg/dL 7-23 GLUCOSE (test code = 3365422515) 102 mg/dL 70-110 CREATININE (test code = 0119848193) 0.62 mg/dL 0.60-1.25 TOTAL BILI (test code = 9195362764) 0.8 mg/dL 0.1-1.1 CALCIUM (test code = 4758375677) 7.8 mg/dL 8.6-10.6 L T PROTEIN (test code = 6749678612) 4.9 g/dL 6.3-8.2 L ALBUMIN (test code = 2992769935) 3.0 g/dL 3.5-5.0 L ALK PHOS (test code = 1707749118) 45 U/L 34-122 ALTv (test code = 1742-6) 13 U/L 5-50 AST(SGOT) (test code = 9443107563) 11 U/L 13-40 L eGFR (test code = 8062805835) 130.6 mL/min/1.73m2 OMAYRA (test code = OMAYRA) Association of [...] or abnormalities in imaging tests). Lab Interpretation (test code = 19157-6) [facility] [id number] 21:11:45* Test Item Value Reference Range Interpretation Comme nts TROPONIN I (test code = 5936083604) 0.019 ng/mL <=0.034 OMAYRA (test code = OMAYRA) Reference [...] of biotin. Lab Interpretation (test code = 39812-3) [facility] CUZ-RUE3093-43-05 21:08:47* Test Item Value Reference Range Interpretation Comme nts NT-proBNP (test code = 6602045569) 266 pg/mL <=125 H Hemolyzed specimen OMAYRA (test code = OMAYRA) Biotin has been reported to cause a negative bias, interpret results relative to patient's use of biotin. Lab Interpretation (test code = 74138-4) [facility] WITH [id number] 20:40:24* Test Item Value Reference Range Interpretation Comme nts WBC (test code = 6690-2) 6.78 See_Comment [Automated [employer]] The system which generated this result transmitted reference range: 4.20 - 10.70 10*3/?L. The reference range was not used to interpret this result as normal/abnormal. RBC (test code = 789-8) 4.47 See_Comment [Automated [employer]] The system which generated this result transmitted reference range: 4.26 - 5.52 10*6/?L. The reference range was not used to interpret this result as normal/abnormal. HGB (test code = 718-7) 13.8 g/dL 12.2-16.4 HCT (test code = 4544-3) 45.1 % 38.4-49.3 MCV (test code = 787-2) 100.9 fL 81.7-95.6 H MCH (test code = 785-6) 30.9 pg 26.1-32.7 MCHC (test code = 786-4) 30.6 g/dL 31.2-35.0 L RDW-SD (test code = 91323-8) 60.4 fL 38.5-51.6 H RDW-CV (test code = 788-0) 16.2 % 12.1-15.4 H PLT (test code = 777-3) 215 See_Comment [Automated [employer]] The system which generated this result transmitted reference range: 150 - 328 10*3/?L. The reference range was not used to interpret this result as normal/abnormal. MPV (test code = 35754-8) 10.9 fL 9.8-13.0 NRBC/100 WBC (test code = 0345636224) 0.0 See_Comment [Automated me ssage] The system which generated this result transmitted reference range: 0.0 - 10.0 /100 WBCs. The reference range was not used to interpret this result as normal/abnormal. NRBC x10^3 (test code = 5278346971) See_Comment [Automated messa ge] The system which generated this result transmitted reference range: 10*3/?L. The reference range was not used to interpret this result as normal/abnormal. GRAN MAT (NEUT) % (test code = 770-8) 75.4 % IMM GRAN % (test code = 2111171319) 0.40 % LYMPH % (test code = 736-9) 15.3 % MONO % (test code = 5905-5) 7.7 % EOS % (test code = 713-8) 0.9 % BASO % (test code = 706-2) 0.3 % GRAN MAT x10^3(ANC) (test code = 3062106791) 5.11 10*3/uL 1.99-6.95 IMM GRAN x10^3 (test code = 5152654444) 0.03 10*3/uL 0.00-0.06 LYMPH x10^3 (test code = 731-0) 1.04 10*3/uL 1.09-3.23 L MONO x10^3 (test code = 742-7) 0.52 10*3/uL 0.36-1.02 EOS x10^3 (test code = 711-2) 0.06 10*3/uL 0.06-0.53 BASO x10^3 (test code = 704-7) 0.01-0.09 Lab Interpretation (test code = 09070-7) [facility]normal [facility] [id number]-[id number] 08:49:53* Test Item Value Reference Range Interpretation Comme nts NT-proBNP (test code = 3054721241) 158 pg/mL <=125 H OMAYRA (test code = OMAYRA) Biotin has been reported to cause a negative bias, interpret results relative to patient's use of biotin. Lab Interpretation (test code = 82630-9) [facility]normal [facility] HospitalD-Razjn2925-72-96 08:44:10* Test Item Value Reference Range Interpretation Comments D-DIMER (test code = 8097815026) See_Comment [Automated message] The system which generated this result transmitted reference range: <0.41 ?g/mL (FEU). The reference range was not used to interpret this result as normal/abnormal. OMAYRA (test code = OMAYRA) This test may be used in conjunction with a clinical pretest [...] context, in forming a diagnosis. Lab Interpretation (test code = 30085-9) [facility] (NA, K, CL, CO2, GLUCOSE, BUN, CREATININE, CA)2023-01-19 08:41:13* Test Item Value Reference Range Interpretation Comme nts NA (test code = 9698365843) 134 mmol/L 135-145 L K (test code = 7641239793) 5.3 mmol/L 3.5-5.0 H CL (test code = 7521173661) 91 mmol/L 98-108 L CO2 TOTAL (test code = 3355241694) 40 mmol/L 23-31 H AGAP (test code = 1995208470) 3 2-16 BUN (test code = 4935596416) 14 mg/dL 7-23 GLUCOSE (test code = 2620753162) 125 mg/dL 70-110 H CREATININE (test code = 4234860527) 0.64 mg/dL 0.60-1.25 CALCIUM (test code = 8225061562) 8.5 mg/dL 8.6-10.6 L eGFR (test code = 1696675502) 125.9 mL/min/1.73m2 OMAYRA (test code = OMAYRA) Association of [...] or abnormalities in imaging tests). Lab Interpretation (test code = 70603-6) Abnormal [facility] WITH [id number] 08:27:33* Test Item Value Reference Range Interpretation Comme nts WBC (test code = 6690-2) 10.04 See_Comment [[employer]] The system which generated this result transmitted reference range: 4.20 - 10.70 10*3/?L. The reference range was not used to interpret this result as normal/abnormal. RBC (test code = 789-8) 4.35 See_Comment [[employer]] The system which generated this result transmitted reference range: 4.26 - 5.52 10*6/?L. The reference range was not used to interpret this result as normal/abnormal. HGB (test code = 718-7) 13.5 g/dL 12.2-16.4 HCT (test code = 4544-3) 43.3 % 38.4-49.3 MCV (test code = 787-2) 99.5 fL 81.7-95.6 H MCH (test code = 785-6) 31.0 pg 26.1-32.7 MCHC (test code = 786-4) 31.2 g/dL 31.2-35.0 RDW-SD (test code = 87559-3) 58.4 fL 38.5-51.6 H RDW-CV (test code = 788-0) 15.9 % 12.1-15.4 H PLT (test code = 777-3) 211 See_Comment [Automated [employer]] The system which generated this result transmitted reference range: 150 - 328 10*3/?L. The reference range was not used to interpret this result as normal/abnormal. MPV (test code = 55389-5) 10.2 fL 9.8-13.0 NRBC/100 WBC (test code = 9416993611) 0.0 See_Comment [Automated [employer] ssage] The system which generated this result transmitted reference range: 0.0 - 10.0 /100 WBCs. The reference range was not used to interpret this result as normal/abnormal. NRBC x10^3 (test code = 6959833142) See_Comment [[employer]ated [employer]] The system which generated this result transmitted reference range: 10*3/?L. The reference range was not used to interpret this result as normal/abnormal. GRAN MAT (NEUT) % (test code = 770-8) 81.2 % IMM GRAN % (test code = 4899559258) 0.50 % LYMPH % (test code = 736-9) 10.1 % MONO % (test code = 5905-5) 7.5 % EOS % (test code = 713-8) 0.5 % BASO % (test code = 706-2) 0.2 % GRAN MAT x10^3(ANC) (test code = 0537164261) 8.16 10*3/uL 1.99-6.95 H IMM GRAN x10^3 (test code = 9001558537) 0.05 10*3/uL 0.00-0.06 LYMPH x10^3 (test code = 731-0) 1.01 10*3/uL 1.09-3.23 L MONO x10^3 (test code = 742-7) 0.75 10*3/uL 0.36-1.02 EOS x10^3 (test code = 711-2) 0.05 10*3/uL 0.06-0.53 L BASO x10^3 (test code = 704-7) 0.01-0.09 Lab Interpretation (test code = 80535-0) [facility]normal [facility]TR[facility] [id number] 12:09:33* Test Item Value Reference Range Interpretation Comme nts TROPONIN I (test code = 8698154901) 0.004 ng/mL <=0.034 OMAYRA (test code = OMAYRA) Reference [...] of biotin. Lab Interpretation (test code = 54138-9) Normal [facility] [id number]-ZMT2826-86-01 12:06:16* Test Item Value Reference Range Interpretation Comme nts NT-proBNP (test code = 0356816530) 135 pg/mL <=125 H OMAYRA (test code = OMAYRA) Biotin has been reported to cause a negative bias, interpret results relative to patient's use of biotin. Lab Interpretation (test code = 91901-3) [facility] Met[facility] (29844)2023-01-17 11:57:36* Test Item Value Reference Range Interpretation Comme nts NA (test code = 4358841182) 133 mmol/L 135-145 L K (test code = 6359799204) 5.0 mmol/L 3.5-5.0 CL (test code = 6903590521) 91 mmol/L 98-108 L CO2 TOTAL (test code = 4879086487) 33 mmol/L 23-31 H AGAP (test code = 3920643002) 9 2-16 BUN (test code = 7072672136) 10 mg/dL 7-23 GLUCOSE (test code = 6919922507) 104 mg/dL 70-110 CREATININE (test code = 1412438496) 0.63 mg/dL 0.60-1.25 TOTAL BILI (test code = 3055124398) 1.2 mg/dL 0.1-1.1 H CALCIUM (test code = 1979838949) 9.0 mg/dL 8.6-10.6 T PROTEIN (test code = 4684567876) 6.9 g/dL 6.3-8.2 ALBUMIN (test code = 7746273383) 4.4 g/dL 3.5-5.0 ALK PHOS (test code = 7999031672) 76 U/L 34-122 ALTv (test code = 1742-6) 13 U/L 5-50 AST(SGOT) (test code = 1589034644) 13 U/L 13-40 eGFR (test code = 8628400437) 128.2 mL/min/1.73m2 OMAYRA (test code = OMAYRA) Association of [...] or abnormalities in imaging tests). Lab Interpretation (test code = 08447-9) Abnormal [facility] with [id number] 11:30:52* Test Item Value Reference Range Interpretation Comme nts WBC (test code = 6690-2) 9.66 See_Comment [Automated [employer]] The system which generated this result transmitted reference range: 4.20 - 10.70 10*3/?L. The reference range was not used to interpret this result as normal/abnormal. RBC (test code = 789-8) 5.00 See_Comment [Automated [employer]] The system which generated this result transmitted reference range: 4.26 - 5.52 10*6/?L. The reference range was not used to interpret this result as normal/abnormal. HGB (test code = 718-7) 15.5 g/dL 12.2-16.4 HCT (test code = 4544-3) 49.7 % 38.4-49.3 H MCV (test code = 787-2) 99.4 fL 81.7-95.6 H MCH (test code = 785-6) 31.0 pg 26.1-32.7 MCHC (test code = 786-4) 31.2 g/dL 31.2-35.0 RDW-SD (test code = 14514-3) 56.6 fL 38.5-51.6 H RDW-CV (test code = 788-0) 15.4 % 12.1-15.4 PLT (test code = 777-3) 261 See_Comment [[employer]ated [employer]] The system which generated this result transmitted reference range: 150 - 328 10*3/?L. The reference range was not used to interpret this result as normal/abnormal. MPV (test code = 69850-4) 10.4 fL 9.8-13.0 NRBC/100 WBC (test code = 9704400732) 0.0 See_Comment [Automated [employer]] The system which generated this result transmitted reference range: 0.0 - 10.0 /100 WBCs. The reference range was not used to interpret this result as normal/abnormal. NRBC x10^3 (test code = 2208248424) See_Comment [Automated [employer]] The system which generated this result transmitted reference range: 10*3/?L. The reference range was not used to interpret this result as normal/abnormal. GRAN MAT (NEUT) % (test code = 770-8) 58.9 % IMM GRAN % (test code = 2996180895) 0.40 % LYMPH % (test code = 736-9) 28.6 % MONO % (test code = 5905-5) 10.5 % EOS % (test code = 713-8) 0.9 % BASO % (test code = 706-2) 0.7 % GRAN MAT x10^3(ANC) (test code = 3065642892) 5.69 10*3/uL 1.99-6.95 IMM GRAN x10^3 (test code = 6409564240) 0.04 10*3/uL 0.00-0.06 LYMPH x10^3 (test code = 731-0) 2.76 10*3/uL 1.09-3.23 MONO x10^3 (test code = 742-7) 1.01 10*3/uL 0.36-1.02 EOS x10^3 (test code = 711-2) 0.09 10*3/uL 0.06-0.53 BASO x10^3 (test code = 704-7) 0.07 10*3/uL 0.01-0.09 Lab Interpretation (test code = 35905-6) [facility]normal [facility] [id number] 10:20:57* Test Item Value Reference Range Interpretation Comme nts NT-proBNP (test code = 3278342045) 473 pg/mL <=125 H OMAYRA (test code = OMAYRA) Biotin has been reported to cause a negative bias, interpret results relative to patient's use of biotin. Lab Interpretation (test code = 22916-5) Abnormal [facility] HospitalLIPID PANEL (06702)(TOTAL CHOLESTEROL, TRIGLYCERIDES, HDL)2022-12-12 10:18:39* Test Item Value Reference Range Interpretation Comme nts CHOL (test code = 8429997090) 133 mg/dL 120-200 HDL (test code = 3807265251) 38 mg/dL >=40 L HDLC RATIO (test code = 1431205346) 3.5 <=5.0 TRIG (test code = 5766429383) 57 mg/dL 30-170 LDL CHOL (test code = 31615-9) 84 mg/dL <=160 VLDL (test code = 4639775078) 11 mg/dL 5-60 Lab Interpretation (test cod e = 57865-1) Abnormal [facility] HospitalMAGNESIUM2023-03-26 10:18:19* Test Item Value Reference Range Interpretation Comme nts MAGNESIUM (test code = 4480413310) 2.0 mg/dL 1.7-2.4 Lab Interpretation (test cod e = 31978-3) [facility] (NA, K, CL, CO2, GLUCOSE, BUN, CREATININE, CA)2022-12-12 10:18:14* Test Item Value Reference Range Interpretation Comme nts NA (test code = 8841368445) 130 mmol/L 135-145 L K (test code = 8262372324) 3.7 mmol/L 3.5-5.0 CL (test code = 4991804656) 89 mmol/L 98-108 L CO2 TOTAL (test code = 1157549080) 37 mmol/L 23-31 H AGAP (test code = 0765388843) 4 2-16 BUN (test code = 3272365779) 13 mg/dL 7-23 GLUCOSE (test code = 6908194853) 120 mg/dL 70-110 H CREATININE (test code = 0901330621) 0.56 mg/dL 0.60-1.25 L CALCIUM (test code = 0460549238) 8.3 mg/dL 8.6-10.6 L eGFR (test code = 9975774315) 146.9 mL/min/1.73m2 OMAYRA (test code = OMAYRA) Association of [...] or abnormalities in imaging tests). Lab Interpretation (test code = 32514-4) Abnormal [facility] HospitalETHANOL2023-03-25 00:54:58 ALCOHOL<10mg/dL12/10/2022 7:54 PM [facility]<10 Znwahuey93-580 Toxic>100 Depression of [employer]>400 Fatalities ReportedR[facility] HospitalTROPONIN [id number] 00:50:14* Test Item Value Reference Range Interpretation Comme nts TROPONIN I (test code = 0580923082) 0.006 ng/mL <=0.034 OMAYRA (test code = OMAYRA) Reference [...] of biotin. Lab Interpretation (test code = 44198-3) Normal [facility] HospitalN-[facility]MINAL [id number]-[id number] 00:47:12* Test Item Value Reference Range Interpretation Comme nts NT-proBNP (test code = 6301508275) 291 pg/mL <=125 H OMAYRA (test code = OMAYRA) Biotin has been reported to cause a negative bias, interpret results relative to patient's use of biotin. Lab Interpretation (test code = 58739-7) [facility]normal [facility] (40645)2022-12-11 00:41:12* Test Item Value Reference Range Interpretation Comme nts NA (test code = 9314491563) 126 mmol/L 135-145 L K (test code = 3162181892) 4.0 mmol/L 3.5-5.0 CL (test code = 6741144851) 82 mmol/L 98-108 L CO2 TOTAL (test code = 1755437454) 40 mmol/L 23-31 H AGAP (test code = 0027657345) 4 2-16 BUN (test code = 0998469741) 16 mg/dL 7-23 GLUCOSE (test code = 9413985913) 97 mg/dL 70-110 CREATININE (test code = 5582602310) 0.67 mg/dL 0.60-1.25 TOTAL BILI (test code = 0640172311) 0.8 mg/dL 0.1-1.1 CALCIUM (test code = 0871007660) 8.5 mg/dL 8.6-10.6 L T PROTEIN (test code = 9468421530) 5.9 g/dL 6.3-8.2 L ALBUMIN (test code = 5098783764) 3.5 g/dL 3.5-5.0 ALK PHOS (test code = 8016174276) 49 U/L 34-122 ALTv (test code = 1742-6) 18 U/L 5-50 AST(SGOT) (test code = 2643903794) 11 U/L 13-40 L eGFR (test code = 4997507089) 119.4 mL/min/1.73m2 OMAYRA (test code = OMAYRA) Association of [...] or abnormalities in imaging tests). Lab Interpretation (test code = 75201-4) Abnormal [facility] WITH [id number] 00:29:08* Test Item Value Reference Range Interpretation Comme nts WBC (test code = 6690-2) 10.15 See_Comment [[employer]] The system which generated this result transmitted reference range: 4.20 - 10.70 10*3/?L. The reference range was not used to interpret this result as normal/abnormal. RBC (test code = 789-8) 4.52 See_Comment [[employer]] The system which generated this result transmitted reference range: 4.26 - 5.52 10*6/?L. The reference range was not used to interpret this result as normal/abnormal. HGB (test code = 718-7) 13.7 g/dL 12.2-16.4 HCT (test code = 4544-3) 41.8 % 38.4-49.3 MCV (test code = 787-2) 92.5 fL 81.7-95.6 MCH (test code = 785-6) 30.3 pg 26.1-32.7 MCHC (test code = 786-4) 32.8 g/dL 31.2-35.0 RDW-SD (test code = 87851-2) 46.7 fL 38.5-51.6 RDW-CV (test code = 788-0) 13.6 % 12.1-15.4 PLT (test code = 777-3) 263 See_Comment [[employer]ated [employer]] The system which generated this result transmitted reference range: 150 - 328 10*3/?L. The reference range was not used to interpret this result as normal/abnormal. MPV (test code = 85192-1) 9.7 fL 9.8-13.0 L NRBC/100 WBC (test code = 3553334834) 0.0 See_Comment [Automated [employer]] The system which generated this result transmitted reference range: 0.0 - 10.0 /100 WBCs. The reference range was not used to interpret this result as normal/abnormal. NRBC x10^3 (test code = 5457096565) See_Comment [[employer]] The system which generated this result transmitted reference range: 10*3/?L. The reference range was not used to interpret this result as normal/abnormal. GRAN MAT (NEUT) % (test code = 770-8) 71.6 % IMM GRAN % (test code = 2261480263) 0.90 % LYMPH % (test code = 736-9) 17.6 % MONO % (test code = 5905-5) 8.7 % EOS % (test code = 713-8) 1.0 % BASO % (test code = 706-2) 0.2 % GRAN MAT x10^3(ANC) (test code = 1229444581) 7.27 10*3/uL 1.99-6.95 H IMM GRAN x10^3 (test code = 2093278563) 0.09 10*3/uL 0.00-0.06 H LYMPH x10^3 (test code = 731-0) 1.79 10*3/uL 1.09-3.23 MONO x10^3 (test code = 742-7) 0.88 10*3/uL 0.36-1.02 EOS x10^3 (test code = 711-2) 0.10 10*3/uL 0.06-0.53 BASO x10^3 (test code = 704-7) 0.01-0.09 Lab Interpretation (test code = 65115-4) Abnormal [facility] HospitalLactic Acid Whole Fuonv9534-26-65 00:14:48* Test Item Value Reference Range Interpretation Comme nts LACTIC ACID (test code = 7616548635) 1.30 mmol/L 0.50-2.20 Lab Interpretation (test cod e = 32280-4) Normal [facility] METABOLIC PANEL (NA, K, CL, CO2, GLUCOSE, BUN, CREATININE, CA)2022-12-04 11:06:33* Test Item Value Reference Range Interpretation Comme nts NA (test code = 8894202802) 123 mmol/L 135-145 L K (test code = 2003095586) 3.8 mmol/L 3.5-5.0 CL (test code = 1106786391) 86 mmol/L 98-108 L CO2 TOTAL (test code = 9233998895) 36 mmol/L 23-31 H AGAP (test code = 4278922620) 1 2-16 L BUN (test code = 2380368426) 22 mg/dL 7-23 GLUCOSE (test code = 0411065671) 195 mg/dL 70-110 H CREATININE (test code = 6519702921) 0.76 mg/dL 0.60-1.25 CALCIUM (test code = 6771202094) 8.2 mg/dL 8.6-10.6 L eGFR (test code = 3471980695) 103.3 mL/min/1.73m2 OMAYRA (test code = OMAYRA) Association of [...] or abnormalities in imaging tests). Lab Interpretation (test code = 57523-0) Abnormal [facility] WITH [id number] 10:54:29* Test Item Value Reference Range Interpretation Comme nts WBC (test code = 6690-2) 8.54 See_Comment [[employer]] The system which generated this result transmitted reference range: 4.20 - 10.70 10*3/?L. The reference range was not used to interpret this result as normal/abnormal. RBC (test code = 789-8) 4.17 See_Comment L [[employer]] The system which generated this result transmitted reference range: 4.26 - 5.52 10*6/?L. The reference range was not used to interpret this result as normal/abnormal. HGB (test code = 718-7) 12.5 g/dL 12.2-16.4 HCT (test code = 4544-3) 36.7 % 38.4-49.3 L MCV (test code = 787-2) 88.0 fL 81.7-95.6 MCH (test code = 785-6) 30.0 pg 26.1-32.7 MCHC (test code = 786-4) 34.1 g/dL 31.2-35.0 RDW-SD (test code = 61355-8) 44.1 fL 38.5-51.6 RDW-CV (test code = 788-0) 13.6 % 12.1-15.4 PLT (test code = 777-3) 247 See_Comment [Automated messa ge] The system which generated this result transmitted reference range: 150 - 328 10*3/?L. The reference range was not used to interpret this result as normal/abnormal. MPV (test code = 06896-8) 9.5 fL 9.8-13.0 L NRBC/100 WBC (test code = 2030415269) 0.0 See_Comment [Automated me ssage] The system which generated this result transmitted reference range: 0.0 - 10.0 /100 WBCs. The reference range was not used to interpret this result as normal/abnormal. NRBC x10^3 (test code = 3869976816) See_Comment [Automated messa ge] The system which generated this result transmitted reference range: 10*3/?L. The reference range was not used to interpret this result as normal/abnormal. GRAN MAT (NEUT) % (test code = 770-8) 93.0 % IMM GRAN % (test code = 1401103865) 0.90 % LYMPH % (test code = 736-9) 3.2 % MONO % (test code = 5905-5) 2.9 % EOS % (test code = 713-8) 0.0 % BASO % (test code = 706-2) 0.0 % GRAN MAT x10^3(ANC) (test code = 2863333060) 7.94 10*3/uL 1.99-6.95 H IMM GRAN x10^3 (test code = 7805795396) 0.08 10*3/uL 0.00-0.06 H LYMPH x10^3 (test code = 731-0) 0.27 10*3/uL 1.09-3.23 L MONO x10^3 (test code = 742-7) 0.25 10*3/uL 0.36-1.02 L EOS x10^3 (test code = 711-2) 0.06-0.53 L BASO x10^3 (test code = 704-7) 0.01-0.09 Lab Interpretation (test code = 98567-8) [facility] (NA, K, CL, CO2, GLUCOSE, BUN, CREATININE, CA)2022-12-03 10:44:53* Test Item Value Reference Range Interpretation Comme nts NA (test code = 1439848306) 126 mmol/L 135-145 L K (test code = 3311931651) 4.0 mmol/L 3.5-5.0 Slight hemolysis CL (test code = 2624264840) 89 mmol/L 98-108 L CO2 TOTAL (test code = 7983752015) 32 mmol/L 23-31 H AGAP (test code = 9506085760) 5 2-16 BUN (test code = 5819888892) 15 mg/dL 7-23 Slight hemolysis GLUCOSE (test code = 0888742034) 115 mg/dL 70-110 H CREATININE (test code = 0152290496) 0.63 mg/dL 0.60-1.25 CALCIUM (test code = 3212911901) 7.7 mg/dL 8.6-10.6 L eGFR (test code = 2884238776) 128.2 mL/min/1.73m2 OMAYRA (test code = OMAYRA) Association of [...] or abnormalities in imaging tests). Lab Interpretation (test code = 27017-1) [facility] [id number] 10:44:53* Test Item Value Reference Range Interpretation Comme nts MAGNESIUM (test code = 4830123341) 1.6 mg/dL 1.7-2.4 L Lab Interpretation (test cod e = 01697-3) [facility] with Pjqpkeydqqhu2480-00-03 10:39:13* Test Item Value Reference Range Interpretation Comme nts WBC (test code = 6690-2) 11.40 See_Comment H [Automated message] The system which generated this result transmitted reference range: 4.20 - 10.70 10*3/?L. The reference range was not used to interpret this result as normal/abnormal. RBC (test code = 789-8) 4.56 See_Comment [Automated message] The system which generated this result transmitted reference range: 4.26 - 5.52 10*6/?L. The reference range was not used to interpret this result as normal/abnormal. HGB (test code = 718-7) 13.7 g/dL 12.2-16.4 HCT (test code = 4544-3) 41.4 % 38.4-49.3 MCV (test code = 787-2) 90.8 fL 81.7-95.6 MCH (test code = 785-6) 30.0 pg 26.1-32.7 MCHC (test code = 786-4) 33.1 g/dL 31.2-35.0 RDW-SD (test code = 10731-7) 45.4 fL 38.5-51.6 RDW-CV (test code = 788-0) 13.6 % 12.1-15.4 PLT (test code = 777-3) 254 See_Comment [Automated message] The system which generated this result transmitted reference range: 150 - 328 10*3/?L. The reference range was not used to interpret this result as normal/abnormal. MPV (test code = 88925-9) 10.2 fL 9.8-13.0 NRBC/100 WBC (test code = 6244071380) 0.0 See_Comment [Automated message] The system which generated this result transmitted reference range: 0.0 - 10.0 /100 WBCs. The reference range was not used to interpret this result as normal/abnormal. NRBC x10^3 (test code = 5671152669) See_Comment [Automated message] The system which generated this result transmitted reference range: 10*3/?L. The reference range was not used to interpret this result as normal/abnormal. GRAN MAT (NEUT) % (test code = 770-8) 90.0 % IMM GRAN % (test code = 6096251305) 0.90 % LYMPH % (test code = 736-9) 5.9 % MONO % (test code = 5905-5) 2.8 % EOS % (test code = 713-8) 0.2 % BASO % (test code = 706-2) 0.2 % GRAN MAT x10^3(ANC) (test code = 3391498955) 10.27 10*3/uL 1.99-6.95 H IMM GRAN x10^3 (test code = 7047715217) 0.10 10*3/uL 0.00-0.06 H LYMPH x10^3 (test code = 731-0) 0.67 10*3/uL 1.09-3.23 L MONO x10^3 (test code = 742-7) 0.32 10*3/uL 0.36-1.02 L EOS x10^3 (test code = 711-2) 0.06-0.53 L BASO x10^3 (test code = 704-7) 0.01-0.09 Lab Interpretation (test code = 86996-3) Abnormal [facility] METABOLIC PANEL (NA, K, CL, CO2, GLUCOSE, BUN, CREATININE, CA)2022-12-02 06:20:42* Test Item Value Reference Range Interpretation Comme nts NA (test code = 5798880390) 124 mmol/L 135-145 L K (test code = 6290705650) 4.5 mmol/L 3.5-5.0 CL (test code = 7887368850) 78 mmol/L 98-108 L CO2 TOTAL (test code = 4596896488) 37 mmol/L 23-31 H AGAP (test code = 1259094340) 9 2-16 BUN (test code = 8267888805) 14 mg/dL 7-23 GLUCOSE (test code = 6517505835) 93 mg/dL 70-110 CREATININE (test code = 2377615985) 0.71 mg/dL 0.60-1.25 CALCIUM (test code = 1087483198) 9.1 mg/dL 8.6-10.6 eGFR (test code = 2469982410) 111.7 mL/min/1.73m2 OMAYRA (test code = OMAYRA) Association of [...] or abnormalities in imaging tests). Lab Interpretation (test code = 65674-2) [facility]normal [facility] HospitalNELA [id number] 12:22:32* Test Item Value Reference Range Interpretation Comme [facility] TROPONIN I (test code = 7876697440) 0.008 ng/mL <=0.034 OMAYRA (test code = OMAYRA) Reference [...] of biotin. Lab Interpretation (test code = 29437-1) Normal [facility] METABOLIC PANEL (NA, K, CL, CO2, GLUCOSE, BUN, CREATININE, CA)2022-12-01 12:11:11* Test Item Value Reference Range Interpretation Comme [facility] NA (test code = 9069449682) 124 mmol/L 135-145 L K (test code = 0251023674) 4.2 mmol/L 3.5-5.0 CL (test code = 4594660016) 79 mmol/L 98-108 L CO2 TOTAL (test code = 5187755033) 37 mmol/L 23-31 H AGAP (test code = 5984598428) 8 2-16 BUN (test code = 8964004227) 16 mg/dL 7-23 GLUCOSE (test code = 1542498635) 105 mg/dL 70-110 CREATININE (test code = 1224964340) 0.67 mg/dL 0.60-1.25 CALCIUM (test code = 1430240897) 8.6 mg/dL 8.6-10.6 eGFR (test code = 3758674229) 119.4 mL/min/1.73m2 OMAYRA (test code = OMAYRA) Association of [...] or abnormalities in imaging tests). Lab Interpretation (test code = 62444-2) Abnormal [facility] WITH [id number] 11:59:32* Test Item Value Reference Range Interpretation Comme nts WBC (test code = 6690-2) 12.17 See_Comment H [Automated message] The system which generated this result transmitted reference range: 4.20 - 10.70 10*3/?L. The reference range was not used to interpret this result as normal/abnormal. RBC (test code = 789-8) 4.59 See_Comment [Automated message] The system which generated this result transmitted reference range: 4.26 - 5.52 10*6/?L. The reference range was not used to interpret this result as normal/abnormal. HGB (test code = 718-7) 13.7 g/dL 12.2-16.4 HCT (test code = 4544-3) 41.6 % 38.4-49.3 MCV (test code = 787-2) 90.6 fL 81.7-95.6 MCH (test code = 785-6) 29.8 pg 26.1-32.7 MCHC (test code = 786-4) 32.9 g/dL 31.2-35.0 RDW-SD (test code = 98923-0) 43.8 fL 38.5-51.6 RDW-CV (test code = 788-0) 13.2 % 12.1-15.4 PLT (test code = 777-3) 208 See_Comment [Automated message] The system which generated this result transmitted reference range: 150 - 328 10*3/?L. The reference range was not used to interpret this result as normal/abnormal. MPV (test code = 31570-5) 9.8 fL 9.8-13.0 NRBC/100 WBC (test code = 9204148950) 0.0 See_Comment [Automated message] The system which generated this result transmitted reference range: 0.0 - 10.0 /100 WBCs. The reference range was not used to interpret this result as normal/abnormal. NRBC x10^3 (test code = 4794588162) See_Comment [Automated message] The system which generated this result transmitted reference range: 10*3/?L. The reference range was not used to interpret this result as normal/abnormal. GRAN MAT (NEUT) % (test code = 770-8) 85.9 % IMM GRAN % (test code = 1240293753) 0.50 % LYMPH % (test code = 736-9) 6.8 % MONO % (test code = 5905-5) 6.3 % EOS % (test code = 713-8) 0.3 % BASO % (test code = 706-2) 0.2 % GRAN MAT x10^3(ANC) (test code = 1901923621) 10.44 10*3/uL 1.99-6.95 H IMM GRAN x10^3 (test code = 6215291224) 0.06 10*3/uL 0.00-0.06 LYMPH x10^3 (test code = 731-0) 0.83 10*3/uL 1.09-3.23 L MONO x10^3 (test code = 742-7) 0.77 10*3/uL 0.36-1.02 EOS x10^3 (test code = 711-2) 0.04 10*3/uL 0.06-0.53 L BASO x10^3 (test code = 704-7) 0.03 10*3/uL 0.01-0.09 Lab Interpretation (test code = 11138-3) Abnormal [facility] METABOLIC PANEL (NA, K, CL, CO2, GLUCOSE, BUN, CREATININE, CA)2022-11-28 17:17:23* Test Item Value Reference Range Interpretation Comme nts NA (test code = 2534127274) 120 mmol/L 135-145 L K (test code = 4222781886) 4.3 mmol/L 3.5-5.0 CL (test code = 6456425920) 77 mmol/L 98-108 L CO2 TOTAL (test code = 9154357313) 40 mmol/L 23-31 H AGAP (test code = 0733909567) 3 2-16 BUN (test code = 8008382313) 15 mg/dL 7-23 GLUCOSE (test code = 0746103504) 151 mg/dL 70-110 H CREATININE (test code = 5097344099) 0.63 mg/dL 0.60-1.25 CALCIUM (test code = 0322591690) 8.2 mg/dL 8.6-10.6 L eGFR (test code = 5236839123) 128.2 mL/min/1.73m2 OMAYRA (test code = OMAYRA) Association of [...] or abnormalities in imaging tests). Lab Interpretation (test code = 65319-3) [facility]normal [facility]2023-[facility]-12 06:54:10* Test Item Value Reference Range Interpretation Comme nts MAGNESIUM (test code = 6764962509) 1.6 mg/dL 1.7-2.4 L Lab Interpretation (test cod e = 68270-3) [facility] (NA, K, CL, CO2, GLUCOSE, BUN, CREATININE, CA)2022-11-28 01:29:53* Test Item Value Reference Range Interpretation Comme nts NA (test code = 8546359958) 120 mmol/L 135-145 L K (test code = 9836100819) 3.9 mmol/L 3.5-5.0 CL (test code = 7152550898) 77 mmol/L 98-108 L CO2 TOTAL (test code = 9141139136) 36 mmol/L 23-31 H AGAP (test code = 3823335631) 7 2-16 BUN (test code = 5083287077) 17 mg/dL 7-23 GLUCOSE (test code = 3704155146) 85 mg/dL 70-110 CREATININE (test code = 1366549703) 0.76 mg/dL 0.60-1.25 CALCIUM (test code = 5680863215) 8.3 mg/dL 8.6-10.6 L eGFR (test code = 0950301995) 103.3 mL/min/1.73m2 OMAYRA (test code = OMAYRA) Association of [...] or abnormalities in imaging tests). Lab Interpretation (test code = 11747-2) Abnormal [facility] METABOLIC PANEL (NA, K, CL, CO2, GLUCOSE, BUN, CREATININE, CA)2022-11-27 20:36:26* Test Item Value Reference Range Interpretation Comme nts NA (test code = 3481104320) 122 mmol/L 135-145 L K (test code = 9029051538) 3.9 mmol/L 3.5-5.0 CL (test code = 6367845480) 79 mmol/L 98-108 L CO2 TOTAL (test code = 7534489597) 37 mmol/L 23-31 H AGAP (test code = 5136940728) 6 2-16 BUN (test code = 7289573553) 17 mg/dL 7-23 GLUCOSE (test code = 1428259304) 113 mg/dL 70-110 H CREATININE (test code = 7743620632) 0.78 mg/dL 0.60-1.25 CALCIUM (test code = 4147636302) 7.8 mg/dL 8.6-10.6 L eGFR (test code = 1351945144) 100.2 mL/min/1.73m2 OMAYRA (test code = OMAYRA) Association of [...] or abnormalities in imaging tests). Lab Interpretation (test code = 83516-5) [facility]normal [facility] HospitalGLYCOSYLATED HEMOGLOBIN (A1C)2022-11-27 18:21:30* Test Item Value Reference Range Interpretation Comme nts HGB A1C (test code = 4548-4) 5.9 % 4.0-5.7 H OMAYRA (test code = OMAYRA) Reference RangesNormal: <5.7%Prediabetes: 5.7 - 6.4%Diabetes: > 6.5% Lab Interpretation (test code = 80568-7) Abnormal [facility] HospitalTROPONIN [id number] 06:12:58* Test Item Value Reference Range Interpretation Comme nts TROPONIN I (test code = 2802906925) 0.007 ng/mL <=0.034 OMAYRA (test code = OMAYRA) Reference [...] of biotin. Lab Interpretation (test code = 13233-4) Normal [facility] HospitalETHANOL2023-[facility]-11 06:10:43 ALCOHOL<10mg/dL11/27/2022 12:10 AM [facility]<10 Zawbbhdq87-079 Toxic>100 Depression of [employer]>400 Fatalities ReportedR[facility] HospitalN-TERMINAL [id number] 06:09:37* Test Item Value Reference Range Interpretation Comme nts NT-proBNP (test code = 1894986536) 311 pg/mL <=125 H OMAYRA (test code = OMAYRA) Biotin has been reported to cause a negative bias, interpret results relative to patient's use of biotin. Lab Interpretation (test code = 15268-9) [facility]normal [facility]COMP[facility]OLIC PAN[facility] ([id number])2022-11-27 06:08:02* Test Item Value Reference Range Interpretation Comme nts NA (test code = 3569871039) 116 mmol/L 135-145 LL K (test code = 8457530189) 4.1 mmol/L 3.5-5.0 CL (test code = 8526124671) 75 mmol/L 98-108 L CO2 TOTAL (test code = 4126686815) 34 mmol/L 23-31 H AGAP (test code = 4524661085) 7 2-16 BUN (test code = 0935801044) 16 mg/dL 7-23 GLUCOSE (test code = 0753539800) 70 mg/dL 70-110 CREATININE (test code = 0641610717) 0.62 mg/dL 0.60-1.25 TOTAL BILI (test code = 4569303631) 1.2 mg/dL 0.1-1.1 H CALCIUM (test code = 6647693608) 8.1 mg/dL 8.6-10.6 L T PROTEIN (test code = 6241993225) 6.3 g/dL 6.3-8.2 ALBUMIN (test code = 7259675410) 3.8 g/dL 3.5-5.0 ALK PHOS (test code = 7859330508) 58 U/L 34-122 ALTv (test code = 1742-6) 15 U/L 5-50 AST(SGOT) (test code = 4590877585) 13 U/L 13-40 eGFR (test code = 3541517874) 130.6 mL/min/1.73m2 OMAYRA (test code = OMAYRA) Association of [...] or abnormalities in imaging tests). Lab Interpretation (test code = 67509-3) Abnormal [facility] WITH [id number] 05:45:18* Test Item Value Reference Range Interpretation Comme nts WBC (test code = 6690-2) 9.18 See_Comment [Automated [employer]] The system which generated this result transmitted reference range: 4.20 - 10.70 10*3/?L. The reference range was not used to interpret this result as normal/abnormal. RBC (test code = 789-8) 4.49 See_Comment [Automated [employer]] The system which generated this result transmitted reference range: 4.26 - 5.52 10*6/?L. The reference range was not used to interpret this result as normal/abnormal. HGB (test code = 718-7) 13.6 g/dL 12.2-16.4 HCT (test code = 4544-3) 39.1 % 38.4-49.3 MCV (test code = 787-2) 87.1 fL 81.7-95.6 MCH (test code = 785-6) 30.3 pg 26.1-32.7 MCHC (test code = 786-4) 34.8 g/dL 31.2-35.0 RDW-SD (test code = 27728-7) 40.1 fL 38.5-51.6 RDW-CV (test code = 788-0) 12.6 % 12.1-15.4 PLT (test code = 777-3) 216 See_Comment [Automated [employer]] The system which generated this result transmitted reference range: 150 - 328 10*3/?L. The reference range was not used to interpret this result as normal/abnormal. MPV (test code = 29908-5) 9.4 fL 9.8-13.0 L NRBC/100 WBC (test code = 4455749426) 0.0 See_Comment [Automated [employer] ssage] The system which generated this result transmitted reference range: 0.0 - 10.0 /100 WBCs. The reference range was not used to interpret this result as normal/abnormal. NRBC x10^3 (test code = 3749924201) See_Comment [Automated [employer]] The system which generated this result transmitted reference range: 10*3/?L. The reference range was not used to interpret this result as normal/abnormal. GRAN MAT (NEUT) % (test code = 770-8) 79.1 % IMM GRAN % (test code = 2757289978) 0.90 % LYMPH % (test code = 736-9) 11.8 % MONO % (test code = 5905-5) 6.8 % EOS % (test code = 713-8) 1.2 % BASO % (test code = 706-2) 0.2 % GRAN MAT x10^3(ANC) (test code = 6663542678) 7.27 10*3/uL 1.99-6.95 H IMM GRAN x10^3 (test code = 7914587561) 0.08 10*3/uL 0.00-0.06 H LYMPH x10^3 (test code = 731-0) 1.08 10*3/uL 1.09-3.23 L MONO x10^3 (test code = 742-7) 0.62 10*3/uL 0.36-1.02 EOS x10^3 (test code = 711-2) 0.11 10*3/uL 0.06-0.53 BASO x10^3 (test code = 704-7) 0.01-0.09 Lab Interpretation (test code = 09851-4) Abnormal [facility] HospitalN-[facility]MINAL [id number] 09:49:54* Test Item Value Reference Range Interpretation Comme nts NT-proBNP (test code = 7576908206) 294 pg/mL <=125 H OMAYRA (test code = OMAYRA) Biotin has been reported to cause a negative bias, interpret results relative to patient's use of biotin. Lab Interpretation (test code = 68782-9) Abnormal [facility] HospitalCOMP[facility]OLIC PANEL ([id number])2022-11-19 09:41:52* Test Item Value Reference Range Interpretation Comme nts NA (test code = 2833767334) 120 mmol/L 135-145 L K (test code = 0293631006) 4.4 mmol/L 3.5-5.0 CL (test code = 1122743368) 80 mmol/L 98-108 L CO2 TOTAL (test code = 5459534426) 34 mmol/L 23-31 H AGAP (test code = 9033874544) 6 2-16 BUN (test code = 5987941779) 10 mg/dL 7-23 GLUCOSE (test code = 8489251400) 93 mg/dL 70-110 CREATININE (test code = 2210084552) 0.77 mg/dL 0.60-1.25 TOTAL BILI (test code = 3439325241) 1.1 mg/dL 0.1-1.1 CALCIUM (test code = 4894867592) 8.7 mg/dL 8.6-10.6 T PROTEIN (test code = 6060895927) 6.9 g/dL 6.3-8.2 ALBUMIN (test code = 2078333716) 4.1 g/dL 3.5-5.0 ALK PHOS (test code = 1648115585) 60 U/L 34-122 ALTv (test code = 1742-6) 14 U/L 5-50 AST(SGOT) (test code = 4694394790) 13 U/L 13-40 eGFR (test code = 4832478519) 101.7 mL/min/1.73m2 OMAYRA (test code = OMAYRA) Association of [...] or abnormalities in imaging tests). Lab Interpretation (test code = 62602-3) Abnormal [facility] WITH [id number] 09:02:29* Test Item Value Reference Range Interpretation Comme nts WBC (test code = 6690-2) 8.30 See_Comment [Automated messa ge] The system which generated this result transmitted reference range: 4.20 - 10.70 10*3/?L. The reference range was not used to interpret this result as normal/abnormal. RBC (test code = 789-8) 4.67 See_Comment [Automated messa ge] The system which generated this result transmitted reference range: 4.26 - 5.52 10*6/?L. The reference range was not used to interpret this result as normal/abnormal. HGB (test code = 718-7) 14.0 g/dL 12.2-16.4 HCT (test code = 4544-3) 41.5 % 38.4-49.3 MCV (test code = 787-2) 88.9 fL 81.7-95.6 MCH (test code = 785-6) 30.0 pg 26.1-32.7 MCHC (test code = 786-4) 33.7 g/dL 31.2-35.0 RDW-SD (test code = 12670-2) 42.3 fL 38.5-51.6 RDW-CV (test code = 788-0) 12.9 % 12.1-15.4 PLT (test code = 777-3) 252 See_Comment [Automated [employer]] The system which generated this result transmitted reference range: 150 - 328 10*3/?L. The reference range was not used to interpret this result as normal/abnormal. MPV (test code = 81850-4) 9.6 fL 9.8-13.0 L NRBC/100 WBC (test code = 2663179639) 0.0 See_Comment [Automated [employer] ssage] The system which generated this result transmitted reference range: 0.0 - 10.0 /100 WBCs. The reference range was not used to interpret this result as normal/abnormal. NRBC x10^3 (test code = 8067955357) See_Comment [Automated messa ge] The system which generated this result transmitted reference range: 10*3/?L. The reference range was not used to interpret this result as normal/abnormal. GRAN MAT (NEUT) % (test code = 770-8) 70.7 % IMM GRAN % (test code = 8570356259) 1.00 % LYMPH % (test code = 736-9) 16.0 % MONO % (test code = 5905-5) 10.5 % EOS % (test code = 713-8) 1.3 % BASO % (test code = 706-2) 0.5 % GRAN MAT x10^3(ANC) (test code = 3297484487) 5.87 10*3/uL 1.99-6.95 IMM GRAN x10^3 (test code = 5977630728) 0.08 10*3/uL 0.00-0.06 H LYMPH x10^3 (test code = 731-0) 1.33 10*3/uL 1.09-3.23 MONO x10^3 (test code = 742-7) 0.87 10*3/uL 0.36-1.02 EOS x10^3 (test code = 711-2) 0.11 10*3/uL 0.06-0.53 BASO x10^3 (test code = 704-7) 0.04 10*3/uL 0.01-0.09 Lab Interpretation (test code = 99852-3) Abnormal [facility] METABOLIC PANEL (NA, K, CL, CO2, GLUCOSE, BUN, CREATININE, CA)2022-11-10 23:42:55* Test Item Value Reference Range Interpretation Comme nts NA (test code = 1407466570) 121 mmol/L 135-145 L K (test code = 0180317867) 4.7 mmol/L 3.5-5.0 CL (test code = 3318664874) 82 mmol/L 98-108 L CO2 TOTAL (test code = 6564449341) 34 mmol/L 23-31 H AGAP (test code = 4634171788) 5 2-16 BUN (test code = 8946002344) 15 mg/dL 7-23 GLUCOSE (test code = 0737304524) 120 mg/dL 70-110 H CREATININE (test code = 3994433470) 0.75 mg/dL 0.60-1.25 CALCIUM (test code = 5306233110) 7.7 mg/dL 8.6-10.6 L eGFR (test code = 4350030374) 104.8 mL/min/1.73m2 OMAYRA (test code = OMAYRA) Association of [...] or abnormalities in imaging tests). Lab Interpretation (test code = 00540-7) [facility] (NA, K, CL, CO2, GLUCOSE, BUN, CREATININE, CA)2022-11-10 17:59:59* Test Item Value Reference Range Interpretation Comme nts NA (test code = 6150095808) 121 mmol/L 135-145 L K (test code = 5737220884) 4.3 mmol/L 3.5-5.0 CL (test code = 1669531565) 81 mmol/L 98-108 L CO2 TOTAL (test code = 1958509595) 38 mmol/L 23-31 H AGAP (test code = 6956049707) 2 2-16 BUN (test code = 6752877351) 15 mg/dL 7-23 GLUCOSE (test code = 6496435959) 113 mg/dL 70-110 H CREATININE (test code = 8078632162) 0.74 mg/dL 0.60-1.25 CALCIUM (test code = 0363729076) 7.5 mg/dL 8.6-10.6 L eGFR (test code = 9267186004) 106.5 mL/min/1.73m2 OMAYRA (test code = OMAYRA) Association of [...] or abnormalities in imaging tests). Lab Interpretation (test code = 51940-6) [facility]normal [facility] [id number] 13:08:23* Test Item Value Reference Range Interpretation Comme nts NT-proBNP (test code = 7270048054) 177 pg/mL <=125 H OMAYRA (test code = OMAYRA) Biotin has been reported to cause a negative bias, interpret results relative to patient's use of biotin. Lab Interpretation (test code = 28868-0) [facility]normal [facility]TR[facility] [id number] 08:23:33* Test Item Value Reference Range Interpretation Comme nts TROPONIN I (test code = 0916064169) 0.004 ng/mL <=0.034 OMAYRA (test code = OMAYRA) Reference [...] of biotin. Lab Interpretation (test code = 97918-5) [facility]COMP[facility] ([id number])2022-11-09 08:12:09* Test Item Value Reference Range Interpretation Comme nts NA (test code = 3952048260) 123 mmol/L 135-145 L K (test code = 0468685094) 4.2 mmol/L 3.5-5.0 CL (test code = 5246467183) 78 mmol/L 98-108 L CO2 TOTAL (test code = 2009030159) 34 mmol/L 23-31 H AGAP (test code = 2524942322) 11 2-16 BUN (test code = 2475058382) 8 mg/dL 7-23 GLUCOSE (test code = 9806229567) 113 mg/dL 70-110 H CREATININE (test code = 2216788258) 0.87 mg/dL 0.60-1.25 TOTAL BILI (test code = 6945349624) 1.2 mg/dL 0.1-1.1 H CALCIUM (test code = 1508786305) 8.8 mg/dL 8.6-10.6 T PROTEIN (test code = 8060202302) 7.6 g/dL 6.3-8.2 ALBUMIN (test code = 2056794107) 4.5 g/dL 3.5-5.0 ALK PHOS (test code = 5173115003) 72 U/L 34-122 ALTv (test code = 1742-6) 13 U/L 5-50 AST(SGOT) (test code = 3195471777) 13 U/L 13-40 eGFR (test code = 5271821354) 88.3 mL/min/1.73m2 OMAYRA (test code = OMAYRA) Association of [...] or abnormalities in imaging tests). Lab Interpretation (test code = 63101-9) Abnormal [facility] HospitalLIPASE, [id number] 08:11:14* Test Item Value Reference Range Interpretation Comme nts LIPASE (test code = 7432455952) 108 U/L 0-220 Lab Interpretation (test cod e = 25590-7) [facility] WITH [id number] 07:59:28* Test Item Value Reference Range Interpretation Comme nts WBC (test code = 6690-2) 8.95 See_Comment [Automated [employer]] The system which generated this result transmitted reference range: 4.20 - 10.70 10*3/?L. The reference range was not used to interpret this result as normal/abnormal. RBC (test code = 789-8) 5.07 See_Comment [Automated [employer]] The system which generated this result transmitted reference range: 4.26 - 5.52 10*6/?L. The reference range was not used to interpret this result as normal/abnormal. HGB (test code = 718-7) 15.0 g/dL 12.2-16.4 HCT (test code = 4544-3) 45.7 % 38.4-49.3 MCV (test code = 787-2) 90.1 fL 81.7-95.6 MCH (test code = 785-6) 29.6 pg 26.1-32.7 MCHC (test code = 786-4) 32.8 g/dL 31.2-35.0 RDW-SD (test code = 41465-0) 41.1 fL 38.5-51.6 RDW-CV (test code = 788-0) 12.5 % 12.1-15.4 PLT (test code = 777-3) 235 See_Comment [Automated [employer]] The system which generated this result transmitted reference range: 150 - 328 10*3/?L. The reference range was not used to interpret this result as normal/abnormal. MPV (test code = 16050-8) 9.8 fL 9.8-13.0 NRBC/100 WBC (test code = 9992963972) 0.0 See_Comment [Automated me ssage] The system which generated this result transmitted reference range: 0.0 - 10.0 /100 WBCs. The reference range was not used to interpret this result as normal/abnormal. NRBC x10^3 (test code = 6506316952) See_Comment [Automated me ssage] The system which generated this result transmitted reference range: 10*3/?L. The reference range was not used to interpret this result as normal/abnormal. GRAN MAT (NEUT) % (test code = 770-8) 56.9 % IMM GRAN % (test code = 0305113029) 0.40 % LYMPH % (test code = 736-9) 29.4 % MONO % (test code = 5905-5) 9.5 % EOS % (test code = 713-8) 3.0 % BASO % (test code = 706-2) 0.8 % GRAN MAT x10^3(ANC) (test code = 6573162567) 5.09 10*3/uL 1.99-6.95 IMM GRAN x10^3 (test code = 1613219315) 0.04 10*3/uL 0.00-0.06 LYMPH x10^3 (test code = 731-0) 2.63 10*3/uL 1.09-3.23 MONO x10^3 (test code = 742-7) 0.85 10*3/uL 0.36-1.02 EOS x10^3 (test code = 711-2) 0.27 10*3/uL 0.06-0.53 BASO x10^3 (test code = 704-7) 0.07 10*3/uL 0.01-0.09 [id number] 19:05:00 * Test Item Value Reference Range Interpretation Comme nts POCT U SP GRAV (test code = 3255) 1.020 mg/dl 1.005-1.025 POCT PH U (test code = 3254) 7.5 mg/dl 5-8 POCT U LEUK EST (test code = 3263) negative Negative - Negative POCT U NIT (test code = 3262) negative Negative - Negati ve POCT U PROT (test code = 3259) negative Negative - Negative POCT U GLU (test code = 3256) negative Negative - Negati ve POCT U KETONE (test code = 3258) negative Negative - Negative POCT U UROBILI (test code = 3260) 0.2 mg/dl 0.2-1 POCT U BILI (test code = 3261) negative Negative - Negative POCT U BLD (test code = 3257) small Negative - Negati ve POCT U COLOR (test code = 3266) yellow POCT U APPEAR (test code = 3267) clear [facility] URINALYSIS, [id number] 19:05:00 * Test Item Value Reference Range Interpretation Comme nts POCT U SP GRAV (test code = 3255) 1.020 mg/dl 1.005-1.025 POCT PH U (test code = 3254) 7.5 mg/dl 5-8 POCT U LEUK EST (test code = 3263) negative Negative - Negative POCT U NIT (test code = 3262) negative Negative - Negati ve POCT U PROT (test code = 3259) negative Negative - Negative POCT U GLU (test code = 3256) negative Negative - Negati ve POCT U KETONE (test code = 3258) negative Negative - Negative POCT U UROBILI (test code = 3260) 0.2 mg/dl 0.2-1 POCT U BILI (test code = 3261) negative Negative - Negative POCT U BLD (test code = 3257) small Negative - Negati ve POCT U COLOR (test code = 3266) yellow POCT U APPEAR (test code = 3267) clear [facility] URINALYSIS, [id number] 19:05:00 * Test Item Value Reference Range Interpretation Comme nts POCT U SP GRAV (test code = 3255) 1.020 mg/dl 1.005-1.025 POCT PH U (test code = 3254) 7.5 mg/dl 5-8 POCT U LEUK EST (test code = 3263) negative Negative - Negative POCT U NIT (test code = 3262) negative Negative - Negati ve POCT U PROT (test code = 3259) negative Negative - Negative POCT U GLU (test code = 3256) negative Negative - Negati ve POCT U KETONE (test code = 3258) negative Negative - Negative POCT U UROBILI (test code = 3260) 0.2 mg/dl 0.2-1 POCT U BILI (test code = 3261) negative Negative - Negative POCT U BLD (test code = 3257) small Negative - Negati ve POCT U COLOR (test code = 3266) yellow POCT U APPEAR (test code = 3267) clear [facility] ABDOMEN PELVIS W [id number] 17:53:531. ?No hydronephrosis or nephrolithiasis. 2. ?Mild [...] ductal dilatation. Spleen: No splenomegaly. Subcentimeter splenule alongthe lateral marginthe spleen. Pancreas: Mild pancreatic atrophy. No pancreatic ductal dilatation. Adrenals: Within normal limits. Kidneys: Symmetric renal enhancement. Subcentimeter hypoattenuating le sionwithin posterior right upper renal pole is too small to characterize. Nohydronephrosis or nephrolithiasis. Bowel: Small sliding-type hiatal hernia with mild circumferential distalesophageal thickening (2:16). [place] density within the distal stomach andat the hepatic flexure likely represent ingested capsules. Peritoneum: No pneumoperitoneum or free fluid. Vasculature: Circumaortic configuration of the left renal vein. Patent mainportal and splenic veins. Mild atherosclerotic calcificationsand softplaque throughout the infrarenal abdominal aorta. Lymph Nodes: No lymphadenopathy. ? Pelvic organs: Urinary bladder is mildly thickened likely related topartial decompression. Enlarged prostate measures 5.2 cm in transversedimension at the level femoral necks. Partially visualized small righthydrocele. Abdominal/Pelvic Wall: Tiny fat-containing umbilical hernia me asuring lessthan 1 cm in transverse dimension at [...] hernia with mild circumferential distalesophageal thickening (2:16). Beulah density within the distal stomach andat the hepatic flexure likely represent ingested capsules.Peritoneum: No pneumoperitoneum or free fluid.Vasculature: Circumaortic configurationof the left renal vein. Patent mainportal and [...] small right hydrocele.5. Additional findings as above. [facility] OzxdlpIbwkspfhzj6335-35-22 17:37:38* Test Item Value Reference Range Interpretation Comme nts APPEARANCE (test code = 8772751810) Cloudy Clear A COLOR (test code = 5588984734) Red Yellow A PH (test code = 3491887957) 4.8-8.0 SP GRAVITY (test code = 4505826356) 1.003-1.030 GLU U QUAL (test code = 1185341579) 50 mg/dL Normal A BLOOD (test code = 4663550206) 3+ Negative A KETONES (test code = 7492266127) Negative Negative PROTEIN (test code = 2887-8) 100 mg/dL Negative A UROBILIN (test code = 2560531141) Normal Normal BILIRUBIN (test code = 0917746458) Negative Negative NITRITE (test code = 5439340696) Negative Negative LEUK DIANELYS (test code = 7519481097) Negative Negative RBC/HPF (test code = 4145654952) >182 See_Comment H [Automated messa ge] The system which generated this result transmitted reference range: 0 - 3 HPF. The reference range was not used to interpret this result as normal/abnormal. WBC/HPF (test code = 0007471262) >182 See_Comment H [Automated messa ge] The system which generated this result transmitted reference range: 0 - 5 HPF. The reference range was not used to interpret this result as normal/abnormal. BACTERIA (test code = 8776890351) Moderate Negative A WBC CLUMPS (test code = 3931411586) See_Comment H [Automated messa ge] The system which generated this result transmitted reference range: <=1 HPF. The reference range was not used to interpret this result as normal/abnormal. Lab Interpretation (test code = 64455-2) Abnormal [facility] Metabolic Panel (NA, K, CL, CO2, GLUCOSE, BUN, CREATININE, CA)2020-12-12 17:13:57* Test Item Value Reference Range Interpretation Comme nts NA (test code = 8369147005) 140 mmol/L 135-145 K (test code = 6578088600) 4.5 mmol/L 3.5-5.0 CL (test code = 6210125069) 100 mmol/L 98-108 CO2 TOTAL (test code = 3776062485) 35 mmol/L 23-31 H AGAP (test code = 1093787025) 2-16 BUN (test code = 2844281378) 25 mg/dL 7-23 H GLUCOSE (test code = 9333512493) 114 mg/dL 70-110 H CREATININE (test code = 2984198733) 1.18 mg/dL 0.60-1.25 CALCIUM (test code = 4732332531) 9.0 mg/dL 8.6-10.6 eGFR Calculation (Non-) (test code = 2960927646) mL/min/1.73m2 eGFR Calculation () (test code = 8126973416) mL/min/1.73m2 OMAYRA (test code = OMAYRA) Association of [...] or abnormalities in imaging tests). Lab Interpretation (test code = 27181-0) Abnormal [facility] with Hclosmdrkqob2780-37-60 16:56:10* Test Item Value Reference Range Interpretation Comme nts WBC (test code = 6690-2) See_Comment [Automated messa ge] The system which generated this result transmitted reference range: 4.20 - 10.70 10*3/?L. The reference range was not used to interpret this result as normal/abnormal. RBC (test code = 789-8) See_Comment [Automated messa ge] The system which generated this result transmitted reference range: 4.26 - 5.52 10*6/?L. The reference range was not used to interpret this result as normal/abnormal. HGB (test code = 718-7) 15.2 g/dL 12.2-16.4 HCT (test code = 4544-3) 46.3 % 38.4-49.3 MCV (test code = 787-2) 96.9 fL 81.7-95.6 H MCH (test code = 785-6) 31.8 pg 26.1-32.7 MCHC (test code = 786-4) 32.8 g/dL 31.2-35.0 RDW-SD (test code = 97696-2) 42.9 fL 38.5-51.6 RDW-CV (test code = 788-0) 11.9 % 12.1-15.4 L PLT (test code = 777-3) See_Comment [Automated [employer]] The system which generated this result transmitted reference range: 150 - 328 10*3/?L. The reference range was not used to interpret this result as normal/abnormal. MPV (test code = 06123-2) 10.8 fL 9.8-13.0 NRBC/100 WBC (test code = 8903491740) See_Comment [Automated [employer] ssage] The system which generated this result transmitted reference range: 0.0 - 10.0 /100 WBCs. The reference range was not used to interpret this result as normal/abnormal. NRBC x10^3 (test code = 0826857293) <0.01 See_Comment [Automated messa ge] The system which generated this result transmitted reference range: 10*3/?L. The reference range was not used to interpret this result as normal/abnormal. GRAN MAT (NEUT) % (test code = 770-8) 63.5 % IMM GRAN % (test code = 2034762396) 0.40 % LYMPH % (test code = 736-9) 23.9 % MONO % (test code = 5905-5) 6.7 % EOS % (test code = 713-8) 4.3 % BASO % (test code = 706-2) 1.2 % GRAN MAT x10^3(ANC) (test code = 1411582154) 4.27 10*3/uL 1.99-6.95 IMM GRAN x10^3 (test code = 7003653023) 0.03 10*3/uL 0.00-0.06 LYMPH x10^3 (test code = 731-0) 1.61 10*3/uL 1.09-3.23 MONO x10^3 (test code = 742-7) 0.45 10*3/uL 0.36-1.02 EOS x10^3 (test code = 711-2) 0.29 10*3/uL 0.06-0.53 BASO x10^3 (test code = 704-7) 0.08 10*3/uL 0.01-0.09 Lab Interpretation (test code = 92206-8) Abnormal [facility] URINALYSIS, [id number] 18:56:00 * Test Item Value Reference Range Interpretation Comme nts POCT U SP GRAV (test code = 3255) 1.030 mg/dl 1.005-1.025 A POCT PH U (test code = 3254) 5.5 mg/dl 5-8 POCT U LEUK EST (test code = 3263) Negative Negative - Negative POCT U NIT (test code = 3262) Negative Negative - Negati ve POCT U PROT (test code = 3259) Negative - Negative POCT U GLU (test code = 3256) Negative Negative - Negati ve POCT U KETONE (test code = 3258) Negative Negative - Negative POCT U UROBILI (test code = 3260) 0.2 mg/dl 0.2-1 POCT U BILI (test code = 3261) Negative Negative - Negative POCT U BLD (test code = 3257) Large Negative - Negati ve POCT U COLOR (test code = 3266) brown POCT U APPEAR (test code = 3267) turbid Lab Interpretation (test cod e = 75820-2) [facility] [id number] 18:56:00 * Test Item Value Reference Range Interpretation Comme nts POCT U SP GRAV (test code = 3255) 1.030 mg/dl 1.005-1.025 A POCT PH U (test code = 3254) 5.5 mg/dl 5-8 POCT U LEUK EST (test code = 3263) Negative Negative - Negative POCT U NIT (test code = 3262) Negative Negative - Negati ve POCT U PROT (test code = 3259) Negative - Negative POCT U GLU (test code = 3256) Negative Negative - Negati ve POCT U KETONE (test code = 3258) Negative Negative - Negative POCT U UROBILI (test code = 3260) 0.2 mg/dl 0.2-1 POCT U BILI (test code = 3261) Negative Negative - Negative POCT U BLD (test code = 3257) Large Negative - Negati ve POCT U COLOR (test code = 3266) brown POCT U APPEAR (test code = 3267) turbid Lab Interpretation (test cod e = 74649-6) Abnormal [facility]- XR CHEST [id number] 16:22:00Patient Name: THIERRY MONGE Unit No: [id number] EXAMS: CPT CODE: [id number] XR CHEST 1V 58615 EXAMINATION: - XR CHEST 1V. LOCATION: B2. HISTORY: S/P ICD. COMPARISON: None. TECHNIQUE: Single AP view ofthe chest was obtained. FINDINGS: The right lung apex is excluded from the brsgk-bz-uxqg. The heartis normal in size. Left AICD device is present. The lungs are clear. No acute osseous abnormality is identified. IMPRESSION: The right lung apex is excluded from the djflj-nw-kuuf. No acute cardiopulmonary abnormality is identified. at 1622 Reported and signed by: Latanya Marshall MD CC: Tyrell Mckeon Technologist: JOSELYN Mathews, RT(R) Transcrpt Date/Tm/Trnsp: 06/19/2020 (1622) t.ANGELAR.PR7 Orig Print D/T: S: 06/19/2020 (5657) [facility] NAME: THIERRY MONGE [id number] PHYS: [place] [address] : 1960 AGE: 59 SEX: M LOC: ZAntwan A PHONE #: [phone] EXAM DATE: 06/19/2020STATUS: ADM IN FAX #: [phone] RADIOLOGY NO: PAGE 1 Signed ReportBASIC METABOLIC [id number] 13:17:00* Test Item Value Reference Range Interpretation Comme nts SODIUM (test code = NA) 140 MMOL/L 137-145 N POTASSIUM (test code = K) 4.6 MMOL/L 3.5-5.1 N CHLORIDE (test code = CL) 99 MMOL/L 98-107 N CARBON DIOXIDE (test code = CO2) 33 MMOL/L 22-30 H ANION GAP (test code = GAP) 13 MMOL/L 14-24 L GLUCOSE (test code = GLU) 78 MG/DL 74-106 N BLOOD UREA NITROGEN (test code = BUN) 18 MG/DL 9-20 N GLOMERULAR FILTRATION RATE (test code = GFR) > 60 Reporting units: ml/min/1.73 m2 (Modified MDRD Formula)Reference Range: > or = 60 ml/min/1.73 m2 CREATININE (test code = CREAT) 1.10 MG/DL 0.66-1.25 N CALCIUM (test code = CA) MG/DL 8.7-9.7 Comments to Air Bag Curer: NURSE WILL BRING SPECIMEN TO LABIs this a LINE draw? N [id number] 13:17:00* Test Item Value Reference Range Interpretation Comme nts MAGNESIUM (test code = MAG) MG/DL 1.6-2.3 Comments to Air Bag Curer: NURSE WILL BRING SPECIMEN TO LABIs this a LINE draw? N BASIC METABOLIC [id number] 13:17:00* Test Item Value Reference Range Interpretation Comme nts SODIUM (test code = NA) 140 MMOL/L 137-145 N POTASSIUM (test code = K) 4.6 MMOL/L 3.5-5.1 N CHLORIDE (test code = CL) 99 MMOL/L 98-107 N CARBON DIOXIDE (test code = CO2) 33 MMOL/L 22-30 H ANION GAP (test code = GAP) 13 MMOL/L 14-24 L GLUCOSE (test code = GLU) 78 MG/DL 74-106 N BLOOD UREA NITROGEN (test code = BUN) 18 MG/DL 9-20 N GLOMERULAR FILTRATION RATE (test code = GFR) > 60 Reporting units: ml/min/1.73 m2 (Modified MDRD Formula)Reference Range: > or = 60 ml/min/1.73 m2 CREATININE (test code = CREAT) 1.10 MG/DL 0.66-1.25 N CALCIUM (test code = CA) 9.1 MG/DL 8.4-10.2 N Comments to Air Bag Curer: NURSE WILL BRING SPECIMEN TO LABIs this a LINE draw? N [id number] 13:17:00* Test Item Value Reference Range Interpretation Comme nts MAGNESIUM (test code = MAG) 2.2 MG/DL 1.6-2.3 N Comments to Air Bag Curer: NURSE WILL BRING SPECIMEN TO LABIs this a LINE draw? N BASIC METABOLIC [id number] 13:16:00* Test Item Value Reference Range Interpretation Comme nts SODIUM (test code = NA) 140 MMOL/L 137-145 N POTASSIUM (test code = K) 4.6 MMOL/L 3.5-5.1 N CHLORIDE (test code = CL) 99 MMOL/L 98-107 N CARBON DIOXIDE (test code = CO2) MMOL/L 22-30 GLUCOSE (test code = GLU) MG/DL 74-106 BLOOD UREA NITROGEN (test code = BUN) MG/DL 9-20 GLOMERULAR FILTRATION RATE (test code = GFR) > 60 Reporting units: ml/min/1.73 m2 (Modified MDRD Formula)Reference Range: > or = 60 ml/min/1.73 m2 CREATININE (test code = CREAT) 1.10 MG/DL 0.66-1.25 N CALCIUM (test code = CA) MG/DL 8.7-9.7 Comments to Air Bag Curer: NURSE WILL BRING SPECIMEN TO LABIs this a LINE draw? N [id number] 13:16:00* Test Item Value Reference Range Interpretation Comme nts MAGNESIUM (test code = MAG) MG/DL 1.6-2.3 Comments to Air Bag Curer: NURSE WILL BRING SPECIMEN TO LABIs this a LINE draw? N BASIC METABOLIC [id number] 13:14:00* Test Item Value Reference Range Interpretation Comme nts SODIUM (test code = NA) 140 MMOL/L 137-145 N POTASSIUM (test code = K) 4.6 MMOL/L 3.5-5.1 N CHLORIDE (test code = CL) 99 MMOL/L 98-107 N CARBON DIOXIDE (test code = CO2) MMOL/L 22-30 GLUCOSE (test code = GLU) MG/DL 74-106 BLOOD UREA NITROGEN (test co de = BUN) MG/DL 9-20 GLOMERULAR FILTRATION RATE ( test code = GFR) CREATININE (test code = CREAT) MG/DL 0.66-1.25 CALCIUM (test code = CA) MG/DL 8.7-9.7 Comments to Air Bag Curer: NURSE WILL BRING SPECIMEN TO LABIs this a LINE draw? N [id number] 13:14:00* Test Item Value Reference Range Interpretation Comme nts MAGNESIUM (test code = MAG) MG/DL 1.6-2.3 Comments to Air Bag Curer: NURSE WILL BRING SPECIMEN TO LABIs this a LINE draw? N BASIC METABOLIC [id number] 13:13:00* Test Item Value Reference Range Interpretation Comme nts SODIUM (test code = NA) MMOL/L 137-145 POTASSIUM (test code = K) MMOL/L 3.5-5.1 CHLORIDE (test code = CL) 99 MMOL/L 98-107 N CARBON DIOXIDE (test code = CO2) MMOL/L 22-30 GLUCOSE (test code = GLU) MG/DL 74-106 BLOOD UREA NITROGEN (test co de = BUN) MG/DL 9-20 GLOMERULAR FILTRATION RATE ( test code = GFR) CREATININE (test code = CREAT) MG/DL 0.66-1.25 CALCIUM (test code = CA) MG/DL 8.7-9.7 Comments to Air Bag Curer: NURSE WILL BRING SPECIMEN TO LABIs this a LINE draw? N [id number] 13:13:00* Test Item Value Reference Range Interpretation Comme nts MAGNESIUM (test code = MAG) MG/DL 1.6-2.3 Comments to Air Bag Curer: NURSE WILL BRING SPECIMEN TO LABIs this a LINE draw? N PROTHROMBIN [id number] 13:08:00* Test Item Value Reference Range Interpretation Comme nts PROTHROMBIN TIME PATIENT (test code = PTP) 12.7 SECONDS 9.4-12.5 H INTERNATIONAL NORMAL RATIO (test code = INR) 1.2 The INR is to be used only for monitoring oral anticoagulanttherap y. INDICATION INR VALUE -------1. Prophylaxis, deep venous thrombosis, including high risk surgery. 2.0 - 3.0 2. Prophylaxis, deep venous thrombosis, hip surgery, treatment for deep venous thrombosis or pulmonary prevention of systemic embolism in patients with valvular heart disease, atrial fibrillation, tissue heart valve, or acute myocardial infarction. 2.0 - 3.0 3. Mechanical prosthesis heart valves, recurrent systemic embolism. 3.0 - 4.5 Comments to Air Bag Curer: NURSE WILL BRING SPECIMEN TO LABPTT ACTIVATED 2020-06-19 13:08:00* Test Item Value Reference Range Interpretation Comme nts PTT ACTIVATED (test code = APTT) 30.8 SECONDS 25.1-36.5 N Comments to Air Bag Curer: NURSE WILL BRING SPECIMEN TO LABCBC W/AUTO DIFF 2020-06-19 12:51:00* Test Item Value Reference Range Interpretation Comme nts WHITE BLOOD CELL (test code = WBC) 6.5 K/MM3 3.8-9.8 N RED BLOOD CELL (test code = RBC) 4.59 M/MM3 3.95-5.67 N HEMOGLOBIN (test code = HGB) 14.4 G/DL 12.4-16.7 N HEMATOCRIT (test code = HCT) 46.2 % 35.9-49.5 N MEAN CELL VOLUME (test code = MCV) 101 fL 81.7-96.1 H MEAN CELL HGB (test code = MCH) 31.4 pg 27.6-33.2 N MEAN CELL HGB CONCETRATION (test code = MCHC) 31.2 % 32.9-35.5 L RED CELL DISTRIBUTION WIDTH (test code = RDW) 12.0 % 12.1-15.2 L PLATELET COUNT (test code = PLT) 176 K/MM3 129-368 N MEAN PLATELET VOLUME (test c ode = MPV) 10.7 fl 7.4-10.4 H NEUTROPHIL % (test code = NT%) 61.0 % 43-75 N IMMATURE GRANULOCYTE % (test code = IG%) 0.3 % 0.0-2.0 N LYMPHOCYTE % (test code = LY%) 27.8 % 14-44 N MONOCYTE % (test code = MO%) 8.6 % 4-13 N EOSINOPHIL % (test code = EO%) 1.7 % 0-6 N BASOPHIL % (test code = BA%) 0.6 % 0-2 N NUCLEATED RBC % (test code = NRBC%) 0.0 % 0-1.0 N NEUTROPHIL # (test code = NT#) 3.99 K/mm3 2.0-7.6 N IMMATURE GRANULOCYTE # (test code = IG#) 0.02 x10 3/uL 0-0.03 N LYMPHOCYTE # (test code = LY#) 1.82 K/mm3 1.0-3.8 N MONOCYTE # (test code = MO#) 0.56 K/mm3 0.1-0.8 N EOSINOPHIL # (test code = EO#) 0.11 K/mm3 0.0-0.2 N BASOPHIL # (test code = BA#) 0.04 K/mm3 0.0-0.2 N NUCLEATED RBC # (test code = NRBC#) 0.00 K/mm3 0.0-0.1 N Comments to Air Bag Curer: NURSE WILL BRING SPECIMEN TO LABIs this a LINE draw? N COVID 19 Asymptomatic IH [id number] 12:14:00* Test Item Value Reference Range Interpretation Comme nts COVID 19 Asymptomatic IH AG (test code = COVNONPUIAG) NEGATIVE Negative "Negative result s from patients with symptom onset beyondfive days, should be treated as presumptive, andconfirmation with a molecular assay, if necessary forpatient management may be performed. Negative results do notrule out COVID-19 and should not be used as the sole basisfor treatment or patient management decisions, includinginfection control decisions. Negative results should beconsidered in the context of a patients recent exposures,history, and the presence of clinical signs and symptomsconsistent with COVID-19.This test detects both viable andnon-viable SARS-CoV and SARS CoV-2.Test performance dependson the amount of virus (antigen) in the sample." Notes Date/Time Note Provider Source 2023-03-20 00:11:00 [id number] 02T00:11:00 [facility] ([facility])Hospitalist Discharge SummaryREPORT#:[id number] REPORT STATUS: SignedDATE:03/20/23 TIME: 0011 PATIENT: THIERRY MONGE UNIT #: [id number]#: [id number] [facility] [birth year] [facility]GE: 62 SEX: M ATTEND: Rudy Xiao AUTHOR: Rudy Xiao MD * ALL edits or amendments must be made on the electronic/computer document * General InformationDischarge date: 03/19/23Discharge diagnosis: Acute Respiratory Failure w/ Hypoxia Hypercapnia Acute COPD Exacerbation COPD HypotensionImproved, known history of chronic hypertension. Blood pressure stable over the day. Hyponatremia Paroxysmal Atrial Fibrillation Chronic Systolic CHF s/p AICD Macrocytic Anemia Dementia Hospital course:Acute Respiratory Failure [...] combative without cigarette smoking or nicotine patches.PLAN- Athletic Team Physician on cessation- Cont. nicotine patch PATIENT HAS BEEN DOING WELL TODAY. VSS. AFEBRILE. BREATHING WELL ON 2 L. ECHOUNREMARKABLE. I [...] combative without cigarette smoking or nicotine patches.PLAN- Athletic Team Physician on cessation- Cont. nicotine patch Code Status: [...] ALBUTEROL (ALBUTEROL 2.5 MG/3 ML (75mL)) 2.5 MG/3 ML (0.083 %) NEB 2.5 MILLIGRAM NEB RT - EVERY 4 HOURS NEEDED. as needed for WHEEZING ATORVASTATIN (LIPITOR) 40 MG TAB 40 MILLIGRAM ORAL BEDTIME. Comments: #30 - SIG Obtained From [facility] MEMANTINE (NAMENDA) 5 MG TAB 5 MILLIGRAM ORAL DAILY. Comments: #90 - SIG Obtained From [facility] RIVAROXABAN (XARELTO) 15 MG TAB 15 MILLIGRAM ORAL DAILY. Comments: #30 - SIG Obtained From [facility] CARVEDILOL (COREG) 3.125 MG TAB 3.125 MILLIGRAM ORAL TWICE DAILY. Comments: #60 - SIG Obtained From Nanda Start taking the following new medications:levoFLOXacin (LEVAQUIN) 500 MG TAB 500 MILLIGRAM ORAL [...] B/P Mean 97 03/19 1000 Pulse 93 03/19 1000 Resp 8 03/19 1000 O2 Delivery Nasal cannula 03/19 08 O2 Flow Rate 2 03/19 0800 FiO2 40 03/19 0718 24 hour I O ending at [...] no edemaMusculoskeletal: normal inspection, painless range of motionNeuro/SPORTS MARKETER: alert, normal speechSkin: dryPsychiatry: abnl judgment/insight, normal affect, normal mood, no hallucinations ResultsFindings/Data:Laboratory Tests: 03/19 03/19 1121 0733 Chemistry POC Glucose (60 - 99 MG/DL) 112 H 170 H Results: MRI results reviewed Discharge Instructions PCPDischarge to: Home/Self CareAdditional Discharge Routines: PCP Follow-Up, Assistant Surveyor Follow-UpDiet: Cardiac Follow-up AppointmentsPCP follow-up: PCP: Undefined [...] 25 or < 18.5BMI status/follow-up: nml BMI,no supervisor counseling and guidance needed at 0016 RPT #:[id number] OF REPORTDSDischarge fvezalr0736-88-57S29:11:00Z.[id number] ailable for patient nvueOPAGWYMCELSIPC7878-09-37H67:16:42 [facility] 2023-03-19 12:19:00 [id number] 01T12:19:00 [facility])Cardiology Progress NoteREPORT#:[id number] REPORT STATUS: SignedDATE:03/19/23 TIME: 1219 PATIENT: THIERRY MONGE UNIT #: [id number]#: [id number] [facility] [birth year] AGE: 62 SEX: M ATTEND: Rudy Xiao [facility] AUTHOR: Tyrell Mckeon MD * ALL edits or amendments must be made on the electronic/computer document * SubjectiveChief complaint:DyspneaPatient reports:No: chest pain, palpitations, shortness of breath. Objective GeneralVS/I O:24 hour I O ending at 0700: 03/19 [...] 18 129/63 90 96 03/19 0735 97.7 03/19 0718 99 Nasal 5 40 cannula 03/19 0701 122 29 160/72 104 95 03/19 0600 88 19 134/60 96 03/19 0500 89 20 134/62 95 03/19 0400 91 17 139/64 98 03/19 0318 103 23 143/67 97 03/19 0100 102 21 148/86 98 07 0000 97.7 07 0000 101 20 152/77 [...] awake, orientedHead/Eyes: atraumatic, normocephalicENT: moist mucosal membranesNeck: no JVDCardiovascular: CV assessment: regular rate and rhythmRespiratory: decreased breath sounds, no distressLower extremity: LE assessment: no edemaMusculoskeletal: full range of motionNeuro/SPORTS MARKETER: alert, oriented X 3, CN II-XII intactSkin: dry, intactPsychiatry: normal affect, normal judgment/insight, normal mood ResultsFindings/Data:Laboratory Tests 03/19 03/19 1121 0733 Chemistry POC [...] f/u with Dr. Tenorio as outpatient. at [address] [place] [address] #:[id number] OF REPORTPRProgress [id number]:19:00Z.[id number] able for patient ljwoEHIOEEENJUNAXS7464-87-99R01:02:48 [facility] 2023-03-18 15:47:00 [id number] 30T15:47:[id number] [address] PATIENT NAME: THIERRY MONGE ADMIT DATE: 03/15/23ACCOUNT NO: [id number] ROOM NO: [facility] AGE: 62 REPORT TYPE: ECHOCARDIOGRAM SEX: M ADMITTING PHYSICIAN:Rudy Xiao MD ATTENDING PHYSICIAN:Rudy Xiao MD *[facility]*[address] [place], [place] [address]Lszfj Transthoracic Echocardiogram Patient: Williams Monge Date: 03/18/2023 BP: 122 / 66 Location: [facility]: [id number] : 1960 Age: 62 Height: 70 in / 177.8 cmAccession#: [id number] Gender: M Weight: 149.7 lb / 68 kgBMI/BSA: 21.5 kg/m 2 / 1.83 m 2 *Ordering Physician: * Omid Tenorio MD *Interpreting Physician: Omid Cowan MD*[facility] Ray Consultant: * Vick Aleman Indications: CAD. Study data: Transthoracic echocardiogram. Procedure: Transthoracicechocardiography was performed. Images were obtained using [facility] cardiac[facility]ras[facility]. Image quality was adequate. M-mode, complete 2D,complete spectral Doppler, and color Doppler. Location: Bedside.Patient status: Inpatient. Patient room number: 347. Study status:Routine. Findings Left ventricle: The cavity size is normal. Wall thickness is normal.Systolic function is normal. The estimated ejection fraction is 60-64%.Left ventricular diastolic function parameters are normal.Right ventricle: Well visualized. The cavity size is normal. Wallthickness is normal. Pacer wire noted in the right ventricle. Systolic PATIENT NAME: THIERRY MONGE function is normal.Ventricular septum: Well visualized.Left atrium: Well visualized. The atrium is normal in size.Right atrium: Well visualized. The atrium is normal in size. Pacer wirenoted in right [...] stenosis. There is no significantregurgitation.Pericardium: There is no pericardial effusion. No evidence of pleuralfluid accumulation.Systemic veins:Inferior vena cava: The vessel is normal in size. Measurements Left ventricle Value Ref KVNG, LAX [...] IVS, ES 1.4 cm --------- PATIENT NAME: THIERRY MONGE Right ventricle Value Ref KVNG, LAX 2.4 [...] 2.46 m/sec --------- Pulmonic valve Value Ref MO v, ED 0.94 m/sec --------- Aortic root Value Ref Root diam 3.4 cm <4.0 Root diam, ED 2.44 cm --------- MM Conclusions Summary: 1. Left ventricle: The cavity size is normal. Wall thickness is normal. PATIENT NAME: THIERRY MONGE Systolic function is normal. The estimated ejection fraction is 60-64%. Left ventricular diastolic function parameters are normal.2. Atrial septum: No defect or patent foramen ovale is identified. Prepared and electronically signed by Omid Tenorio MD03/18/2023 15:47 at 1547 PATIENT NAME: THIERRY MONGE :47:0 0Z.[id number] for patient hmarPMUDCPXBKWCVLL9732-08-13E36:48:19 [facility] 2023-03-18 10:16:00 [id number] 30T10:16:00 [facility] ([facility])Hospitalist Progress NoteREPORT#:[id number] REPORT STATUS: SignedDATE:03/18/23 TIME: 1016 PATIENT: THIERRY MONGE UNIT #: [id number]#: [id number] [facility] [birth year] AGE: 62 SEX: M ATTEND: Rudy Xiao [facility] AUTHOR: Jenny Meyers MD R2 * ALL edits or amendments must be made on the electronic/computer document * Jenny Meyers 03/18/23 1016:SubjectiveChief complaint:SOB, hypotensionHPI:62 yo M with PMH of COPD on 2L NC, Hypertension, Anxiety, Systolic CHF s/p AICD,Afib on xarelto, CVA and dementia presented as a transfer from [facility] for evaluation of shortness of breath. [...] O2 via nasal cannula- Ambulating with assistance- Denies fever/chills, nausea/vomiting, diarrhea, worsening SOB, chest pain, [...] prolonged exp phase, rhonchi, wheezing, symmetric expansionAbdomen: non-tender, softGenitourinary: no urinary catheterExtremities: moves all, no calf tenderness, no edemaMusculoskeletal: normal inspection, painless range of motionNeuro/SPORTS MARKETER: alert, normal speechSkin: dryPsychiatry: abnl judgment/insight, normal [...] combative without cigarette smoking or nicotine patches.PLAN- Athletic Team Physician on cessation- Cont. nicotine patch Code Status: Full CodeVTE Ppx: RivaroxibanDiet: Cardiac Quality: Gen Med Crit Care VTE ProphylaxisVTE prophylaxis initiated: yes (rivaroxiban) Current MedicationsCurrent medication review:I attest that the foregoing medication list in the medical record is true, accurate, and complete to the best of my knowledge. BMI Screening > 25 or < 18.5BMI status/follow-up: nml BMI,no supervisor counseling and guidance needed AttestationsAttestation needed: teaching physician Rudy Xiao 03/18/23 1743:Attestations Teaching Physician AttestationF/U visit w/ resident:I saw the patient with the resident and . . . agree with the resident's findings and plan.echo unremarkableawait aicd interrogationdvt ppx: on xarelto at 1023 at 1743 RPT #:[id number] OF REPORTPRProgress vcdi5578-71-97U11:16:00Z.[id number] able for patient umljEMPBTRFQMYCPTN6901-67-36Q10:23:27 [facility] 2023-03-18 06:54:00 [id number] 30T06:54:00 [facility] ([facility])Cardiology Progress NoteREPORT#:[id number] REPORT STATUS: SignedDATE:03/18/23 TIME: 653 PATIENT: THIERRY MONGE UNIT #: [id number]#: [id number] [facility] [birth year] AGE: 62 SEX: M ATTEND: Rudy Xiao MDADM AUTHOR: Tyrell Mckeon MD * ALL edits [...] awake, orientedHead/Eyes: atraumatic, normocephalicENT: moist mucosal membranesNeck: no JVDCardiovascular: CV assessment: regular rate and rhythmRespiratory: decreased breath sounds, wheezing, no distressLower extremity: LE assessment: no edemaMusculoskeletal: full range of motionNeuro/SPORTS MARKETER: alert, oriented X 3, CN II-XII intactSkin: dry, intactPsychiatry: normal affect, normal judgment/insight, normal mood Diagnosis, Assessment Plan Free Text DxA P NotesFree Text DxA P Notes:IMPRESSION:1. Chronic systolic heart failure.2. Status post Serrano automated implantable cardioverter defibrillator.3. Dyspnea.4. Coronary artery disease.5. Hypertension.6. Dyslipidemia. RECOMMENDATIONS: Continue current medical therapy. Oxygen support as needed. at 1220 RPT #:[id number] OF REPORTPRProgress wbnq2890-54-04T09:54:00Z.[id number] able for patient ewqrQGHMNMEWYJHYVN7358-15-39N65:20:55 [facility] 2023-03-17 13:48:00 [id number]:48:00 [facility] ([facility] Hospitalist Progress NoteREPORT#:[id number] REPORT STATUS: SignedDATE:03/17/23 TIME: 1348 PATIENT: THIERRY MONGE UNIT #: [id number]#: [id number] [facility] [birth year] AGE: 62 SEX: M ATTEND: Rudy iXao MDADM AUTHOR: Jenny Meyers MD R2 * ALL edits or amendments must be made on the electronic/computer document * Jenny Meyers 03/17/23 1348:SubjectiveChief complaint:SOB, hypotensionHPI:62 yo M with PMH of COPD on 2L NC, Hypertension, Anxiety, Systolic CHF s/p AICD,Afib on xarelto, CVA and dementia presented as a transfer from [facility] for evaluation of shortness of breath. [...] for evaluation- Tolerating PO, on supplemental O2 via nasal cannula- Able to ambulate with assistance- [...] prolonged exp phase, rhonchi, wheezing, symmetric expansionAbdomen: non-tender, soft, no guardingGenitourinary: no urinary catheterExtremities: moves all, no calf tenderness, no cyanosisMusculoskeletal: normal inspection, painless range of motionNeuro/SPORTS MARKETER: alert, oriented X 3, normal speechSkin: dryPsychiatry: [...] device interrogation and echocardiogram for evaluation of arrhythmia.PLAN- Cont. methylprednisolone 40mg IV q8hr- Cont. scheduled [...] medications.PLAN- Device interrogation pending Macrocytic AnemiaMCV 101 on admission.PLAN- B12 and Folate pending DementiaAlert and oriented to person, place, and time.PLAN- Cont. memantine, donepezil Current Tobacco UseEveryday user, smoking, 1-2 packs per day, duration unknown. Patient becomes agitated with abstinence and will become combative without cigarette smoking or nicotine patches.PLAN- Athletic Team Physician on cessation- Cont. nicotine patch Code Status: Full CodeVTE Ppx: RivaroxibanDiet: Cardiac Quality: Gen Med Crit Care VTE ProphylaxisVTE prophylaxis initiated: yes (rivaroxiban) Current MedicationsCurrent medication review:I attest that the foregoing medication list in the medical record is true, accurate, and complete to the best of my knowledge. BMI Screening > 25 or < 18.5BMI status/follow-up: nml BMI,no supervisor counseling and guidance needed AttestationsAttestation needed: teaching physician Rudy Xiao 03/17/23 1405:Attestations Teaching Physician AttestationF/U visit w/ resident:I saw the patient with the resident and . . . agree with the resident's findings and plan. await echo and aicd interrogationcont xareltohas home o2 at 1511 at 0024 RPT #:[id number] OF REPORTPRProgress kaxb5229-91-10X82:48:00Z.[id number] able for patient qxrmMIRMNJQDYFHUDT3485-67-39N95:11:47 [facility] 2023-03-17 06:38:00 [id number] 29T06:38:00 [facility] ([facility])Cardiology Progress NoteREPORT#:[id number] REPORT STATUS: SignedDATE:03/17/23 TIME: 06 PATIENT: THIERRY MONGE UNIT #: [id number]#: [id number] [facility] [birth year] AGE: 62 SEX: M ATTEND: Rudy Xiao [facility] AUTHOR: Tyrell Mckeon MD * [...] (Pulmicort) 0.5 MG RTQ12H NEB Physical ExamHead/Eyes: atraumatic, normocephalicENT: moist mucosal membranesNeck: no JVDCardiovascular: CV assessment: regular rate and rhythmRespiratory: decreased breath sounds, wheezing, no distressLower extremity: LE assessment: no edemaMusculoskeletal: full range of motionNeuro/SPORTS MARKETER: alert, oriented X 3, CN II-XII intactSkin: dry, intactPsychiatry: normal affect, normal judgment/insight, normal mood ResultsFindings/Data:Laboratory Tests 03/1629 0929 Chemistry Sodium (137 - 145 MMOL/L) [...] (Auto) (14 - 44 %) 3.3 L Rabun % (Auto) (4 - 13 %) 3.9 L Eos % (Auto) (0 - 6 %) 0.0 Baso % (Auto) (0 - 2 %) 0.1 Neut # (Auto) (2.0 - 7.6 K/mm3) 9.37 H Lymph # (Auto) (1.0 - 3.8 K/mm3) 0.33 L Rabun # (Auto) (0.1 - 0.8 K/mm3) 0.40 [...] Oxygen support as needed. at 1220 RPT #:[id number] OF REPORTPRProgress ulcy3264-60-94B35:38:00Z.[id number] able for patient hpqwONOLXWRMREKSXD7102-24-44U32:20:45 [facility] 2023-03-16 20:57:00 [id number]:57:00 [facility] NoteREPORT#:[id number] REPORT STATUS: SignedDATE:03/16/23 TIME: 2056 PATIENT: THIERRY MONGE UNIT #: [id number]#: [id number] [facility] [birth year] AGE: 62 SEX: M ATTEND: Rudy Xiao [facility] AUTHOR: Tyrell Mckeon MD * [...] 2020 95 Nasal 4 36 cannula 03/16 195 Nasal 4 cannula 03/16 1935 [...] awake, orientedHead/Eyes: atraumatic, normocephalicENT: moist mucosal membranesNeck: no JVDCardiovascular: CV assessment: regular rate and rhythmRespiratory: clear to auscultation, no distressLower extremity: LE assessment: no edemaMusculoskeletal: full range of motionNeuro/SPORTS MARKETER: alert, oriented X 3, CN II-XII intactSkin: dry, intactPsychiatry: normal affect, normal judgment/insight, normal mood ResultsFindings/Data:Laboratory Tests 03/16 0929 Chemistry Sodium (137 - [...] (Auto) (14 - 44 %) 3.3 L Rabun % (Auto) (4 - 13 %) 3.9 L Eos % (Auto) (0 - 6 %) 0.0 Baso % (Auto) (0 - 2 %) 0.1 Neut # (Auto) (2.0 - 7.6 K/mm3) 9.37 H Lymph # (Auto) (1.0 - 3.8 K/mm3) 0.33 L Rabun # (Auto) (0.1 - 0.8 K/mm3) 0.40 [...] Oxygen support as needed. at 0637 RPT #:[id number] OF REPORTPRProgress emjr0905-03-23D30:57:00Z.[id number] able for patient vmkqEAIKHBRPBLJCFW5553-14-16V44:38:10 [facility] 2023-03-16 08:07:00 [id number]:07:00 [facility])Hospitalist Progress NoteREPORT#:[id number] REPORT STATUS: SignedDATE:03/16/23 TIME: 08 PATIENT: THIERRY MONGE UNIT #: [id number]#: [id number] [facility] [birth year] AGE: 62 SEX: M ATTEND: Rudy Xiao AUTHOR: Jenny Meyers MD R2 * ALL edits or amendments must be made on the electronic/computer document * Jenny Meyers 03/16/23 0807:SubjectiveChief complaint:SOB, hypotensionHPI:62 yo M with PMH of COPD on 2L NC, Hypertension, Anxiety, Systolic CHF s/p AICD,Afib on xarelto, CVA and dementia presented as a transfer from [facility] for evaluation of shortness of breath. [...] cough, parox nocturnal dyspnea, pleurisy, pleuritic pain, pneumonia, productive cough [...] prolonged exp phase, rhonchi, wheezing, symmetric expansionAbdomen: non-tender, soft, no distention, no guardingGenitourinary: no urinary catheterExtremities: moves all, no calf tenderness, no edemaMusculoskeletal: normal inspection, painless range of motionNeuro/SPORTS MARKETER: alert, oriented X 3, normal speechSkin: dryPsychiatry: abnl judgment/insight, normal affect, normal mood, no hallucinations ResultsFindings/Data:Laboratory Tests 03/15 03/15 1640 1206 Blood Gas [...] hypoxia and hypercapnia. IV methylprednisolone 125mg and decadronadministered prior to arrival. Transitioned off BiPAP overnight and tolerating 4L via NC. ABG improved on repeat ABG.PLAN- Cont. methylprednisolone 40mg IV q8hr- Cont. scheduled [...] if he is still taking these medications.PLAN- Verify with sister and resume, if active Macrocytic AnemiaMCV 101 on admission.PLAN- B12 and Folate pending DementiaAlert and oriented to person, place, and time.PLAN- Cont. memantine, donepezil Current Tobacco UseEveryday user, smoking, 1-2 packs per day, duration unknown. Patient becomes agitated with abstinence and will become combative without cigarette smoking or nicotine patches.PLAN- Athletic Team Physician on cessation- Cont. nicotine patch Code Status: Full CodeVTE Ppx: RivaroxibanDiet: Cardiac Quality: Gen Med Crit Care VTE ProphylaxisVTE prophylaxis initiated: yes (rivaroxiban) Current MedicationsCurrent medication review:I attest that the foregoing medication list in the medical record is true, accurate, and complete to the best of my knowledge. BMI Screening > 25 or < 18.5BMI status/follow-up: nml BMI,no supervisor counseling and guidance needed AttestationsAttestation needed: teaching physician Rudy Xiao 03/16/232006:Attestations Teaching Physician AttestationF/U visit w/ resident:I saw the patient with the resident and . . . agree with the resident's findings and plan. echocards folloingaicd interrogationcont xareltohas home o2 at 1416 at 2006 RPT #:[id number] OF REPORTPRProgress knzk3279-04-78F71:07:00Z.[id number] able for patient iaufJBWXHSWAVGQDSV7292-97-75I19:17:30 [facility] 2023-03-15 20:17:00 [id number]:17:845503-7752 [place] [id number] PATIENT NAME: THIERRY MONGE ADMIT DATE: 03/15/23ACCOUNT NO: [id number] ROOM NO: [facility] AGE: 62 REPORT TYPE: ELECTROCARDIOGRAM SEX: M ADMITTING PHYSICIAN:Rudy Xiao MD ATTENDING PHYSICIAN:Rudy Xiao MD Order:[id number] Reason : CAD Test Date/Time Stamp:TueMar 15 2023 20:17:48Blood Pressure : / mmHGVent. Rate : 093 BPM Atrial Rate : 093 BPM P-R Int : 140 ms QRS Dur : 090 ms QT Int : 362 ms P-R-T Axes : 082 071 079 degrees QTc Int : 450 ms Normal sinus rhythmNormal ECGWhen compared with ECG of 19-JUN-2020 13:14,Vent. rate has increased BY 33 BPMT wave amplitude has increased in Inferior leadsConfirmed by OMID TENORIO ([id number]) on 03/16/2023 7:34:29 AM Referred By: Self Referred Confirmed by:OMID TENORIO at 0734 PATIENT NAME: THIERRY MONGE .[id number] AVAvailable for patient vrsjNKQDOCBTXZRXJJ3733-38-15Y95:34:54 [facility] 2023-03-15 16:03:00 [id number]:03:053620-[address] [address] PATIENT NAME: THIERRY MONGE ADMIT DATE: 03/15/23ACCOUNT NO: [id number] ROOM NO: [facility] AGE: 62 REPORT TYPE: CONSULTATION REPORT SEX: M ADMITTING PHYSICIAN:Rudy Xiao MD ATTENDING PHYSICIAN:Rudy Xiao MD CONSULTATION DATE: 03/15/2023 REFERRING PHYSICIAN: Gurinder North MD REASON FOR CONSULTATION: I was asked to evaluate this patient for shortness of breath. HISTORY OF PRESENT ILLNESS: This is a 62-year-old male with a history of chronic systolic heart failure, COPD, status post Serrano AICD, who presented to the Emergency Room at [facility] in [place] with complaints of increasing shortness of breath. [...] failure, CVA, dementia. PAST SURGICAL HISTORY: Status post appendectomy, status post Serrano AICD. FAMILY HISTORY: Positive for diabetes. SOCIAL HISTORY: No alcohol. Continues to smoke daily. ALLERGIES: NKDA. HOME MEDICATIONS: Donepezil, atorvastatin, memantine, rivaroxaban, tamsulosin, carvedilol, aspirin, omeprazole, potassium. REVIEW OF SYSTEMS:CONSTITUTIONAL: No complaints of fever or chills.ENMT: No complaints of headache.EYES: No complaints of blurred vision.RESPIRATORY: Shortness of breath is noted that has been progressive.CARDIOVASCULAR: No complaints of chest pain or palpitations.GASTROINTESTINAL: No complaints of nausea or vomiting.GENITOURINARY: No complaints urinary frequency or dysuria.MUSCULOSKELETAL: No complaints of joint pain.SKIN: No complaints of skin rash.NEUROLOGIC: No complaints of focal weakness. PHYSICAL EXAMINATION: PATIENT NAME: THIERRY MONGE GENERAL: A well-nourished male, in no acute distress.VITAL SIGNS: Temperature 97.8, blood pressure 110/63, pulse 90, respiratory rate 38, O2 sats 91%.ENMT: Atraumatic, normocephalic.RESPIRATORY: Normal effort. Diminished breath sounds bilaterally with a prolonged expiratory phase. Just scattered expiratory [...] Dictated: 03/15/2023 16:03:59Date Transcribed: 03/15/2023 16:59:18GSP/REQJob #: [id number] ID: [id number] by Tyrell Mckeon MD On 03/15/2023 06:28:21 PM at 0628 PATIENT NAME: THIERRY MONGE :59:00Z.MT [id number] for patient tcojTNUMMMPZMOYZIH6317-20-05P74:29:09 [facility] 2023-03-15 10:52:00 [id number]:52:00 [facility] Hospitalist History PhysicalREPORT#:[id number] REPORT STATUS: SignedDATE:03/15/23 TIME: 1051 PATIENT: THIERRY MONGE UNIT #: [id number]#: [id number] [facility] [birth year] AGE: 62 SEX: M ATTEND: Rudy Xiao [facility] AUTHOR: Clare Velazquez * ALL edits or amendments must be made on the electronic/computer document * Clare Velazquez 03/15/23 1052:History of Present Illness HPIChief complaint:SOB, hypotension HPI:62 yo M with PMH of COPD on 2L NC, Hypertension, Anxiety, Systolic CHF s/p AICD,Afib on xarelto, CVA and dementia presented as a transfer from [facility] for evaluation of shortness of breath. [...] smoker (1 to 2 packs/day ) Medication/Allergy-Vaccine HxMedications:Home Medications:Medication Dose/Rte/Freq Days Qty [...] TAB 1122[Breztri Aerosphere 1] #11 - SIG Obtained 03/15/23 FromStrengt: DrFirst 1122 TAMSULOSIN ER (FLOMAX) #30 - SIG Obtained 03/15/23 FromStrengt: 0.[address]First 1123CAP.SR.24H CARVEDILOL (COREG) 3.125 MG PO BID 03/15/23Strength: 3.125 MG TAB 1123 ASPIRIN EC (ECOTRIN) 81 MG PO DAILY 06/19/20trength: 81 MG TAB.EC 1105 OMEPRAZOLE ER 40 MG PO DAILY 06/19/20(PriLOSEC)Strength: 40 MG CAP.DR 1106 POTASSIUM CHLORIDE ER 10 MEQ PO BID 06/19/20 (MICRO-K) 1106Strength: 10 MEQ CAP.SA BENAZEPRIL (LOTENSIN) 10 MG PO DAILY 06/19/20trength: 10 MG TAB 1107 HYDROCHLOROTHIAZIDE DOSE 20MG DAILY 06/19/20 (HYDRODIURIL) 1108Strength: 25 MG TAB IPRATROPIUM 500 MCG INH RTQ6H 06/19/20 (ATROVENT 0.02%) 1109Strength: 0.2 MG/ML(0.02 %) NEB ALBUTEROL [...] Atorvastatin Calcium 40 MG BEDTIME 03/15 2100 AC (LIPITOR) PO 04/14 [...] Hydrox/ 30 ML Q6H PRN PRN 03/15 1005 AC Simethicone PO 04/14 1006 (MAALOX PLUS) Docusate Sodium 100 MG BID PRN PRN 03/15 1005 AC (COLACE) PO 04/14 1006 Ondansetron HCl 4 [...] 1006 Allergies:Coded Allergies:No Known Allergies (06/19/20) Review of SystemsRespiratory:Reports: ANNE (dyspnea on exertion), productive cough (sputum), SOB, wheezing. Cardiovascular:Denies: chest pain, edema, orthopnea, palpitations. All systems rev neg: except as marked Objective GeneralVS/I O:Vital Signs: Date Time Temp Pulse Resp B/P B/P Pulse O2 O2 Flow FiO2 Mean Ox Delivery Rate 03/15 1500 [...] normal heart soundsRespiratory: decreased breath sounds, on oxygen, wheezing, symmetric expansion, poor air movement, mild distress Abdomen: non-tender, normal bowel sounds, soft, no guardingExtremities: moves all, no cyanosis, no edemaMusculoskeletal: normal inspection, no muscle spasm, no paraspinal tendernessNeuro/SPORTS MARKETER: alert, oriented X 3, normal speech, no motor deficits, no sensory deficitsSkin: dry, normal color, normal temperaturePsychiatry: abnl judgment/insight, no hallucinations, irritable mood ResultsFindings/Data:Laboratory Tests 03/15 03/15 1206 0711 Blood Gas [...] (Auto) (1.0 - 3.8 K/mm3) 0.51 L Rabun # (Auto) (0.1 - 0.8 K/mm3) 0.10 [...] to arrival here. Will continue with 40mg i7nnWcp tx, scheduled duonebs and budesonide PRN antitussives #Acute on chronic respiratory failure with hypercapnia Transition pt from NC to bipap. Pt is threatening non compliance in regards to bipap use as he is uncomfortable with it. Explained to pt importance of bipap use at this time. Pt using 2L NC at home. Repeat ABG later todayEncourage incentive spirometer use when taking breaks off bipap Manage COPD as above Bicarb elevated on labs likely as a compensatory measure #Hypotension, improved #Hx of hypertension Present on arrival, improved on my evaluation with BP at bedside 100/57 Pt thinks he [...] on steroids which should support BP at this time. Given 1L NS bolus in ED, will hold off on further fluid and use as needed based on clinical volume assessment due to hx of CHF. Consider midodrine as needed Order Echo #Hyponatremia Suspect due to HCTZ use. Hold HCTZ and monitor sodium levels #Paroxysmal Afib Resume Xarelto. He is [...] is alert and oriented x3 #Tobacco abuse supervisor counseling and guidance on cessation. start nicotine patch VTE ppx: Xarelto Full CodeDispo: likely dc home, pending clinical improvement Time spent is > 60 mins DOS: 03/15/2023 Quality: Gen Med Crit Care VTE ProphylaxisVTE prophylaxis initiated: yes Current MedicationsUnable to obtain:Unable to obtain an accurate home medication list at this time. The patient is in an urgent or emergent medical situation where time is of the essence. To delay treatment would jeopardize the patient's health status on the day of the encounter. BMI Screening > 25 or < 18.5Patient's BMI:Current BMI: 21.6 BMI status/follow-up: nml BMI,no supervisor counseling and guidance needed Rudy Xiao 03/15/23 2233:Attestations Teaching Physician Vltqgijbkbq8ei visit w/ resident:I was present with the resident during the history and exam. I discussed the case with the resident and . . . agree with the findings and plan as documented in the resident's note. echocards folloingaicd interrogationcont xareltohas home o2 at 2235 at 2343 RPT #:[id number] OF REPORTHPHistory and physical zmolijpgwoa8179-78-87L09:52:00Z.[id number] AVAvailable for patient klvtMXUWTVQMKWYTTO4238-84-27N50:35:21 [facility] 2023-03-15 07:02:00 [id number]:02:00 [facility] ([facility])EMERGENCY PROVIDER REPORTREPORT#:[id number] REPORT STATUS: SignedDATE:03/15/23 TIME: 0702 PATIENT: THIERRY MONGE UNIT #: [id number]#: [id number] [address] SEX: M PCP PHYS: Undefined ProviderSERVICE AUTHOR: Royce Davison MD LOCATION: [facility] * ALL edits or amendments must be made on the electronic/computer document * See AddendumHPI-General Illness Free Text HPI NotesFree Text HPI Tbyyz20-ckws-pkw female past medical history COPD, hypertension, hyperlipidemia[facility] Complaining of shortness of breath over the last 2 days accompanied by productive cough with denies fever, chills, chest vomiting, diarrhea, dysuria or any other complaints at this time. Was given 125 of Solu-Medrol as well as nebulizers, Decadron, Pepcid, and 500 of Levaquin at the outlying facility. Was reportedly in respiratory distress and placed on BiPAP. Patient reportedly demanded for BiPAP to be taken off in routeto this ER and on initial evaluation, he is comfortable on nasal cannula. GeneralInitial Greet Date/Time 03/15/23 0525 PresentationChief Complaint Shortness of breath Review of Systems Free Text ROS NotesFree Text ROS NotesConstitutional:Denies: Chills, Fatigue. Eyes:Denies: Blurry Vision, Diplopia. ENT:Denies: Sinus problem, Sore throat. Respiratory:+Cough, Shortness of breath. Cardiovascular:Denies: Chest pain, Palpitations. GI: Denies: Abdominal pain, Nausea, Vomiting. : Denies: Dysuria, Flank pain. Musculoskeletal:Denies: Extremity Pain, Laceration. HematologicDenies: Bleeding. NeurologicDenies: Change LOC, Confusion, Slurred speech. Past Medical History - AdultStated Complaint COPD HYPOTENSIONAllergiesCoded Allergies:No Known Allergies (06/19/20) Home MedicationsActive ScriptsCEPHALEXIN (KEFLEX) 500 MG PO TID CEPHALEXIN (KEFLEX) 500 MG PO TID #15 CAPS Prov: 06/20/20ACETAMINOPHEN/CODEINE (TYLENOL WITH CODEINE #3 300/30 MG) 1 [...] PRN PRN PAIN/ANXIETY IPRATROPIUM (ATROVENT 0.02%) 500 MCG INH RTQ6H ALBUTEROL (ALBUTEROL 2.5 MG/3 ML (75mL)) 2.5 MG NEB RTQ4H PRN PRN WHEEZING Calculated Suicide Risk (nurs) No riskAdditional Medical HistoryCOPD, hypertension, hyperlipidemia, A-fib Smoking status for patients 13 years old or older: Unknown,if ever [...] distress. Lung sounds fairly diminished bilaterally.Cardiovascular: Heart rate NL, Regular rhythm, No gallops/rubs appreciated. Abdomen/GI: Non-tender in all abdominal quadrants. No guarding, No rebound. No distentionSkin: Warm, DryNeurologic: Alert Oriented X3, Speech normal. Interpretation Diagnostics Lab Results InterpretationResultsLaboratory Tests 03/15/23631:[Embedded Image Not Available]Laboratory Tests: 03/15 632 Chemistry [...] (Auto) (1.0 - 3.8 K/mm3) 0.51 L Rabun # (Auto) (0.1 - 0.8 K/mm3) 0.10 Eos # (Auto) (0.0 - 0.2 K/mm3) 0.00 Baso # (Auto) (0.0 - 0.2 K/mm3) 0.01 Nucleated RBCs # (Man) (0.0 - 0.1 K/mm3) 0.00 Recent Impressions:RADIOLOGY - XR CHEST 1V 03/15 0647 Report Impression - Status: SIGNED Entered: 03/15/2023 0702 IMPRESSION: No acute radiographic abnormalityImpression By: [email or web address] - Miroslava Cote MD Re-Evaluation MDM Free Text MDM NotesFree Text MDM NotesHistory and physical as [...] Mean 69 03/15 0521 Temp 36.9 03/15 05 Pulse 78 03/15 05 Resp 20 03/15 521 O2 Delivery Nasal cannula 03/15 0534 O2 Flow Rate 2 03/15 0534 Last Documented: Result Date Time Pulse Ox 98 03/15 0645 B/P 90/53 06/27 0645 B/P Mean 65 03/15 0645 O2 [...] syndrome, Hyponatremia Disposition DecisionHospitalize Hosp Physician Name Rudy Xiao MD Request Time 713 Request Date 03/15/23 )( Accepts Hospitalization Yes )( Accepted Time 713 )( Accepted Date 03/15/23 at 1029 Addendum 1: 03/15/23 1029 by [...] not somnolent. Discussed with inpatient team, plan for [...] highest level of preparedness to intervene emergently and I personally spent this critical care time directly andpersonally managing the patient. This critical care time included obtaining a history; [...] other patients and teaching time. at 1918RPT #:[id number] OF REPORTEDEmersummit medical center department [id number]:02:00Z.[id number] ilable for patient [id number]:29:15 [facility] 2020-06-20 06:17:00 [id number]:17:00 [facility]Card[facility] Progress NoteREPORT#:[id number] REPORT STATUS: SignedDATE:06/20/20 TIME: 616 PATIENT: THIERRY MONGE UNIT #: [id number]#: [id number] [facility] AGE: 59 SEX: M ATTEND: Tyrell Mckeon [facility] AUTHOR: Tyrell Mckeon MD * [...] Potassium Chloride 10 MEQ BID PO Ipratropium Pierce 0.5 MG RTQ6H INH Cefazolin Sodium 1,000 MG Q8H IV Sodium Chloride 10 MLPantoprazole 40 MG DAILY PO Albuterol Sulfate 2.5 [...] normal nose, normal pharynxNeck: no JVDCardiovascular: CV assessment: regular rate and rhythmRespiratory: clear to auscultation, no distressLower extremity: LE assessment: no edemaMusculoskeletal: full range of motionNeuro/SPORTS MARKETER: alert, oriented X 3, CN II-XII intactSkin: [...] 12.5 SECONDS) 12.7 H Laboratory Tests 06/19 1241 Hematology WBC [...] % (Auto) (14 - 44 %) 27.8 Rabun % (Auto) (4 - 13 %) 8.6 Eos % (Auto) (0 - 6 %) 1.7 Baso % (Auto) (0 - 2 %) 0.6 Neut # (Auto) (2.0 - 7.6 K/mm3) 3.99 Lymph # (Auto) (1.0 - 3.8 K/mm3) 1.82 Rabun # (Auto) (0.1 - 0.8 K/mm3) 0.56 [...] APTT (25.1 - 36.5 SECONDS) 30.8 Radiology data:Recent Impressions:RADIOLOGY - XR CHEST 1V 06/19 1610 Report Impression - Status: SIGNED Entered: 06/19/2020 1625 IMPRESSION:The right lung apex is excluded from the wdeey-kn-bbdn. No acutecardiopulmonary abnormality is identified.Impression By: Heather Marshall MD Diagnosis, Assessment Plan Free Text DxA P NotesFree Text DxA P Notes:IMP: Chronic systolic heart failure s/p [employer]. [employer] AICD - single lead PLAN: AICD interrogation d/c home if stable. at 0818 RPT #:[id number] OF REPORTPRProgress [id number]:17:00Z.[id number] able for patient [id number]:18:31 [facility] 2020-06-19 16:03:00 [id number]:03:[id number] [address] PATIENT NAME: THIERRY MONGE ADMIT DATE: 06/19/20ACCOUNT NO: [id number] ROOM NO: [facility] AGE: 59 REPORT TYPE: OPERATIVE REPORT SEX: M ADMITTING PHYSICIAN:Tyrell Mckeon MD ATTENDING PHYSICIAN:Tyrell Mckeon MD OPERATION DATE: 06/19/2020 PROCEDURES:1. Non-thoracotomy single lead AICD placement.2. Defibrillation threshold testing. PREOPERATIVE DIAGNOSES:1. 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 [place] [employer] class III congestive heart failure. POSTOPERATIVE DIAGNOSES:1. 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 [place] [employer] class III congestive heart failure. SURGEON: Tyrell Mckeon MD LINOLEUM FLOOR INSTALLER: None. ANESTHESIA: Local anesthesia with 1% lidocaine and moderate sedation. PROCEDURE DETAILS: After informed consent was obtained explaining to thepatient the risks, benefits, and alternatives, the patient was brought to thecardiac catheterization lab in the fasting postabsorptive state. He was preppedand draped in sterile fashion. Local anesthesia was applied over theinfraclavicular area with 1% lidocaine. Access to left subclavian vein wasobtained using modified Seldinger technique with a micropuncture kit. One wirewas placed in low right atrium and secured proximally. Additional 1% lidocainewas applied to the infraclavicular area. The pocket was formed with sharp andblunt dissection as well as electrocautery. The wires brought in to the pocket. The pocket was flushed with antibiotic-containing solution. A 7-Amharic sheathwas advanced over the wire and left subclavian vein. The dilator and wire wereremoved. An active fixation right ventricular lead was advanced via the sheathunder fluoroscopic [...] were applied to PATIENT NAME: THIERRY MONGE wound externally. The patient tolerated the procedure well with nocomplications. IMPLANT DATA:1. Pulse generator: [employer] Cory model [id number], serial #[id number]. Right ventricular lead; [employer] Cory model 7120Q/58, serial number [id number]. STIMULATION THRESHOLD DATA: Right ventricle R waves greater than 12 millivolts,impedance 610 ohms, threshold 0.5 volts at 0.4 milliseconds. DEFIBRILLATION THRESHOLD TESTING: Induction with DC fibber, energy 25.4 joules,charge time 6 seconds, impedance 45 ohms, result sinus rhythm. The patienttolerated the procedure well with no complications. CONCLUSION:1. Successful non-thoracotomy single lead AICD placement.2. At least 10 joule defibrillation threshold margin.3. No complications. Dictated By: Tyrell Mckeon MD WT: OP:Z.JAY/PEPGR/NTSDD: 06/19/2020 16:03:36DT: 06/19/2020 17:31:17Conf#: [id number]/DID#: [id number] cc: Omid Tenorio MD Authenticated by Tyrell Mckeon MD On 06/23/2020 06:02:06 AM at 0602 PATIENT NAME: THIERRY MONGE [id number]:31:00Z.[id number] lable for patient [id number]:03:33 [facility] 2020-06-19 13:14:00 [id number] [place] [address] PATIENT NAME: THIERRY MONGE ADMIT DATE: 06/19/20ACCOUNT NO: [id number] ROOM NO: Z.354 AGE: 59 REPORT TYPE: ELECTROCARDIOGRAM SEX: M ADMITTING PHYSICIAN:Tyrell Mckeon MD ATTENDING PHYSICIAN:Tyrell Mckeon MD Order:[id number] Reason : CHF Test Date/Time Stamp:TueJun 19 2020 13:14:54Blood Pressure : / mmHGVent. Rate : 060 BPM Atrial Rate : 060 BPM P-R Int : 146 ms QRS Dur : 094 ms QT Int : 430 ms P-R-T Axes : 065 055 070 degrees QTc Int : 430 ms Normal sinus rhythmHIGH VOLTAGES IN PRECORDIAL LEADSNormal ECGNo previous ECGs availableConfirmed by TIARA BLUE MD ([id number]) on 06/20/2020 11:57:07 AM Referred By: Tyrell Mckeon Confirmed by:TIARA BLUE MD at 1157 PATIENT NAME: THIERRY MONGE .[id number] AVAvailable for patient [id number]:57:37 [facility]
[2023-08-27 18:25] LABS: Absolute Lymphocytes (CBC) 1.2 K/uL (0.7-4.9); Hematocrit 39.2 % (39.6-49.0); MCV 95.4 fL (80-100); MPV 8.8 fL (7.6-11.3); Platelets 207 thou/uL (152-406); RBC Red Blood Cell Count 4.11 M/uL (4.33-5.43)
[2023-08-27 18:28] LABS: Potassium 3.8 mEq/L (3.5-5.1); Troponin High Sensitivity 7.8 pg/mL (<58.9)
[2023-08-27 18:48] LABS: Arterial Blood Carboxyhemoglob 6.5 % (0-1.5); Blood Gas Oxyhemoglobin 48.1 % (94-97); Blood O2 Saturation 52.3 % (92-98.5)
--- NOTE | 2023-08-27 19:37 | RAD REPORT ---
EXAM DESCRIPTION: RADChest Single View08/27/2023 7:09 pm CLINICAL HISTORY: SOB COMPARISON: Chest Single View dated 08/19/2023; Chest Single View dated 07/04/2023; Chest Single View dated 07/03/2023; Chest Single View dated 06/09/2023 TECHNIQUE: Portable AP view of the chest. FINDINGS: The lungs are clear. Diffuse hyperlucency and hyperinflation suggestive of COPD. Left ches t wall pacer unchanged in position. No pneumothorax or effusion. The cardiomediastinal contours are u nremarkable. IMPRESSION: No acute cardiopulmonary process.
--- NOTE | 2023-08-27 20:12 | RAD REPORT ---
EXAM DESCRIPTION: CT - Chest For Pe Angio - 08/27/2023 7:25 pm CLINICAL HISTORY: DYSPNEA COMPARISON: Chest For Pe Angio dated 06/07/2023; Chest For Pe Angio dated 03/20/2023; Chest For Pe Melody o dated 12/22/2021; Thorax Wo Con dated 09/14/2019 TECHNIQUE: Thin axial CT images of the chest were obtained following administration of 90 mL Isovue 370 IV contrast. Multiplanar reconstructions, and maximum intensity projection reconstructions were g enerated and reviewed. Exam utilizes a protocol for optimal evaluation of pulmonary arterial tree. All CT scans are performed using dose optimization technique as appropriate and may include automated exposure control or mA/KV adjustment according to patient size. FINDINGS: Pulmonary arteries are normal. No emboli or other suspicious finding. No acute or signific ant aorta findings. No mass or infiltrate in the lung parenchyma. Advanced centrilobular emphysematous changes. No pleura l thickening or pleural effusion. No pneumothorax. Right hilar prominent lymph node measuring 1.3 cm in short axis. No other abnormal mediastinal or hil ar masses or lymphadenopathy seen. No chest wall mass or abnormal axilliary lymphadenopathy. IMPRESSION: No evidence of acute central pulmonary emboli. Advanced centrilobular emphysematous changes. Solitary prominent right hilar lymph node, may be infectious or inflammatory.
--- NOTE | 2023-08-27 20:37 | ER ---
Nurse's Notes [facility] Name: Juan C Monge Age: 63 yrs Sex: Male : 1960 Arrival Date: 08/27/2023 Time: 17:37 Bed 4 Private MD: Diagnosis: COPD/ Chronic obstructive pulmonary disease with (acute) exacerbation Presentation: 08/27 17:46 Chief complaint: SOB x 2 weeks, worse over the last 2 days, had syncopal episode just hb [employer]. Coronavirus screen: Client presents with at least one sign or symptom that may indicate coronavirus-19. Provider contacted for isolation considerations. Ebola Screen: No symptoms or risks identified at this time. Initial Sepsis Screen: Does the patient meet any 2 criteria? No. Patient's initial sepsis screen is negative. Does the patient have a suspected source of infection? No. Patient's initial sepsis screen is negative. Risk Assessment: Do you want to hurt yourself or someone else? Patient reports no desire to harm self or others. Onset of symptoms was August 06, 2023. 17:46 Method Of Arrival: Ambulatory hb 17:46 Acuity: JESSI 2 hb Historical: - PMHx: 17:45 Atrial Fib; COPD; CVA; Hypertension; Hyperlipidemia; Myocardial infarction; skull ko1 fracture; - PSHx: 17:45 Appendectomy; pacemaker; ko1 - Immunization history:: Adult Immunizations unknown. - Social history:: Smoking status: Patient reports the use of cigarette tobacco products, smokes one pack cigarettes per day. Screenin:45 [facility] ED Fall Risk Assessment (Adult) History of falling in the last 3 months, ko1 including since admission No falls in past 3 months (0 pts) Confusion or Disorientation No (0 pts) Intoxicated or Sedated No (0 pts) Impaired Gait No (0 pts) Mobility Assist Device Used No (0 pt) Altered Elimination No (0 pt) Score/Fall Risk Level 0 - 2 = Low Risk Oriented to surroundings, Maintained a safe environment, Educated pt \T\ family on fall prevention, incl call for assistance when getting out of bed, Assessed \T\ reinforced patient's understanding of fall precautions, Provided non-skid footwear, Hourly rounding (assess needs \T\ fall precautionary measures) done, Used ambulatory aids as needed (educated on \T\ assisted with). Abuse screen: Denies threats or abuse. Denies injuries from another. Nutritional screening: No deficits noted. Tuberculosis screening: No symptoms or risk factors identified. Assessment: 17:44 General: Appears distressed, uncomfortable, ill, Behavior is calm, cooperative, ko1 appropriate for age. Pain: Denies pain. Neuro: No deficits noted. Cardiovascular: Rhythm is sinus rhythm. Respiratory: Airway is patent Respiratory effort is labored, pursed lip, using tripod position, Breath sounds are diminished bilaterally. GI: No deficits noted. : No deficits noted. EENT: No deficits noted. Derm: No deficits noted. Musculoskeletal: No deficits noted. 19:48 Reassessment: Patient appears in no apparent distress at this time. Patient and/or km8 family updated on plan of care and expected duration. Pain level reassessed. Patient is alert, oriented x 3, equal unlabored respirations, skin warm/dry/pink. General: Appears in no apparent distress. comfortable, Behavior is calm, cooperative, appropriate for age. Neuro: [place]osta Agitation-Sedation Scale (RASS): 0 - Alert and Calm Level of Consciousness is awake, alert, obeys commands, Oriented to person, place, time, situation. Cardiovascular: Denies chest pain, Capillary refill < 3 seconds Patient's skin is warm and dry. Respiratory: Airway is patent Respiratory effort is even, unlabored, Respiratory pattern is regular, symmetrical. 20:23 Reassessment: patient refusing to use Bipad. explained the importance of using it. care ha1 provider in the room. Vital Signs: 17:46 BP 143 / 93; Pulse 73; Resp 15; Temp 97.4(TE); Pulse Ox 91% on 1 lpm NC; Weight 63.5 hb kg; Height 6 ft. 1 in. ; Pain 3/10; 18:09 BP 139 / 75; Pulse 72; Resp 18; Pulse Ox 100% on 2 lpm NC; ko1 18:57 BP 128 / 61; Pulse 73; Resp 19; Pulse Ox 92% on R/A; ko1 19:00 BP 157 / 75; Pulse 73; Resp 22; Pulse Ox 91% on 2 lpm NC; km8 19:50 Pulse Ox 98% on 2 lpm NC; km8 20:45 BP 143 / 84; Pulse 71; Resp 18 S; Pulse Ox 99% on R/A; ha1 21:20 BP 148 / 78; Pulse 71; Pulse Ox 98% on 2 lpm NC; km8 17:46 Body Mass Index 18.47 (63.50 kg, 185.42 cm) hb 17:46 Pain Scale: Adult hb ED Course: 17:40 Patient arrived in ED. mg5 17:40 Ashley Henry, RN is Primary Nurse. ko1 17:45 Patient has correct armband on for positive identification. Bed in low position. Call ko1 light in reach. Side rails up X2. Client placed on continuous cardiac and pulse oximetry monitoring. NIBP monitoring applied. case monitor on. Door closed. Noise minimized. Warm blanket given. 17:45 EKG completed in triage. Results shown to MD. tm6 17:47 Triage completed. hb 17:49 Inserted saline lock: 18 gauge in right wrist, using aseptic technique. Blood collected.ds4 18:03 Basic Metabolic Panel Sent. ko1 18:03 CBC with Diff Sent. ko1 18:03 Troponin HS Sent. ko1 18:07 Ila Lal FNP-C is PHCP. snw 18:07 Bebo Hart is Attending Physician. snw 18:20 DD Sent. ko1 19:11 XRAY Chest (1 view) In Process Unspecified. EDMS 19:27 CT Chest For PE Angio In Process Unspecified. EDMS 19:50 Arm band placed on right wrist. km8 21:25 Provided Education on: d/c teaching. km8 21:25 No provider procedures requiring assistance completed. IV discontinued, intact, km8 bleeding controlled, No redness/swelling at site. Pressure dressing applied. Administered Medications: No medications were administered Medication: 19:50 VIS not applicable for this client. km8 Outcome: 20:36 Discharge ordered by MD. snw 21:37 Discharged to home via wheelchair, km8 21:37 Condition: good 21:37 Condition: good 21:37 Discharge instructions given to patient, Instructed on discharge instructions, follow up and referral plans. Demonstrated understanding of instructions, follow-up care, 21:37 Patient left the ED. km8 Signatures: Dispatcher [employer] EDLA Ila Lal FNP-C FNP-Master Manzanares ds4 Angely Smith RN RN Anette Fernandez RN RN ha1 Ashley Henry, RN RN ko1 Irene Zavaleta mg5 Keyla Acevedo, RN RN km8 Kellie Cramer RN RN tm6 Corrections: (The following items were deleted from the chart) 20:48 20:23 Reassessment: patient refusing to use Bipad. explained the importance of using ha1 it. pt. requesting to be discharge. care provider in the room. ha1
--- NOTE | 2023-08-27 20:37 | EDPHYS ---
Physician Documentation [facility] Name: Juan C Monge Age: 63 yrs Sex: Male : 1960 Arrival Date: 08/27/2023 Time: 17:37 Bed 4 Private MD: ED Physician Bebo Hart HPI: 08/27 19:05 This 63 yrs old Male presents to ER via Ambulatory with complaints of Breathing snw Difficulty. 19:05 The patient has shortness of breath at rest. Onset: The symptoms/episode began/occurred snw suddenly. Duration: The symptoms are continuous. Associated signs and symptoms: Pertinent positives: anxiety. Severity of symptoms: At their worst the symptoms were moderate severe. pt states he was just discharged from the hospital with COPD exacerbation. Pt states he was sitting at home and felt he was going to . States he can breath but feels like he isn't getting any air. 19:07 pt is on 2L via NC at home, still on prednisone, albuterol, cefdinir,amiodarone, HCTZ, snw carvedilol, KCL, Donepezil . Historical: - PMHx: 17:45 Atrial Fib; COPD; CVA; Hypertension; Hyperlipidemia; Myocardial infarction; skull ko1 fracture; - PSHx: 17:45 Appendectomy; pacemaker; ko1 - Immunization history:: Adult Immunizations unknown. - Social history:: Smoking status: Patient reports the use of cigarette tobacco products, smokes one pack cigarettes per day. ROS: 19:04 Eyes: Negative for injury, pain, redness, and discharge, ENT: Negative for injury, snw pain, and discharge, Neck: Negative for injury, pain, and swelling, Cardiovascular: Negative for chest pain, palpitations, and edema, 19:04 Abdomen/GI: Negative for abdominal pain, nausea, vomiting, diarrhea, and constipation, Back: Negative for injury and pain, : Negative for injury, bleeding, discharge, and swelling, MS/Extremity: Negative for injury and deformity, Skin: Negative for injury, rash, and discoloration, Neuro: Negative for headache, weakness, numbness, tingling, and seizure, 19:04 Constitutional: Positive for pt states he was scared he was going to , 19:04 Respiratory: Positive for dyspnea on exertion, shortness of breath, at rest. 19:04 Psych: Positive for anxiety, Exam: 19:03 Head/Face: Normocephalic, atraumatic. Eyes: Pupils equal round and reactive to light, snw extra-ocular motions intact. Lids and lashes normal. Conjunctiva and sclera are non-icteric and not injected. Cornea within normal limits. Periorbital areas with no swelling, redness, or edema. ENT: Nares patent. No nasal discharge, no septal abnormalities noted. Tympanic membranes are normal and external auditory canals are clear. Oropharynx with no redness, swelling, or masses, exudates, or evidence of obstruction, uvula midline. Mucous membranes moist. Neck: Trachea midline, no thyromegaly or masses palpated, and no cervical lymphadenopathy. Supple, full range of motion without nuchal rigidity, or vertebral point tenderness. No Meningismus. Chest/axilla: Normal chest wall appearance and motion. Nontender with no deformity. No lesions are appreciated. Cardiovascular: Regular rate and rhythm with a normal S1 and S2. No gallops, murmurs, or rubs. Normal PMI, no JVD. No pulse deficits. 19:03 Abdomen/GI: Soft, non-tender, with normal bowel sounds. No distension or tympany. No guarding or rebound. No evidence of tenderness throughout. Back: No spinal tenderness. No costovertebral tenderness. Full range of motion. Skin: Warm, dry with normal turgor. Normal color with no rashes, no lesions, and no evidence of cellulitis. MS/ Extremity: Pulses equal, no cyanosis. Neurovascular intact. Full, normal range of motion. Neuro: Awake and alert, GCS 15, oriented to person, place, time, and situation. Cranial nerves II-XII grossly intact. Motor strength 5/5 in all extremities. Sensory grossly intact. Cerebellar exam normal. Normal gait. 19:03 Constitutional: The patient appears awake, anxious, restless, 19:03 Respiratory: moderate respiratory distress is noted, Respirations: paradoxical chest movement, shallow respirations, Breath sounds: bronchial sounds, 19:03 Psych: Affect is animated, Oriented to person, place, time, Vital Signs: 17:46 BP 143 / 93; Pulse 73; Resp 15; Temp 97.4(TE); Pulse Ox 91% on 1 lpm NC; Weight 63.5 hb kg; Height 6 ft. 1 in. ; Pain 3/10; 18:09 BP 139 / 75; Pulse 72; Resp 18; Pulse Ox 100% on 2 lpm NC; ko1 18:57 BP 128 / 61; Pulse 73; Resp 19; Pulse Ox 92% on R/A; ko1 19:00 BP 157 / 75; Pulse 73; Resp 22; Pulse Ox 91% on 2 lpm NC; km8 19:50 Pulse Ox 98% on 2 lpm NC; km8 20:45 BP 143 / 84; Pulse 71; Resp 18 S; Pulse Ox 99% on R/A; ha1 21:20 BP 148 / 78; Pulse 71; Pulse Ox 98% on 2 lpm NC; km8 17:46 Body Mass Index 18.47 (63.50 kg, 185.42 cm) hb 17:46 Pain Scale: Adult hb MDM: 18:35 Patient medically screened. snw 19:54 ED course: in CT for PE study. snw 20:24 Differential diagnosis: Anxiety Reaction asthma, Bronchitis Chronic Obstructive snw Pulmonary Disease pulmonary edema, reactive airway disease. Data reviewed: vital signs, nurses notes, lab test result(s), radiologic studies, CT scan. Counseling: I had a detailed discussion with the patient and/or guardian regarding the historical points, exam findings, and any diagnostic results supporting the discharge/admit diagnosis, the presence of at least one elevated blood pressure reading (>120/80) during this emergency department visit, lab results, radiology results. 20:35 ED course: Refuses bi-pap, SpO2 on 2L 98%, pt has O2 at home, PE study negative. Will snw discharge to home. 12 18:02 Order name: Basic Metabolic Panel; Complete Time: 18:36 tm6 12 18:02 Order name: CBC with Diff; Complete Time: 18:36 tm6 12 18:02 Order name: Troponin HS; Complete Time: 18:36 tm6 12 18:16 Order name: ABG; Complete Time: 18:54 snw 12 18:16 Order name: DD; Complete Time: 18:45 snw 12 18:02 Order name: XRAY Chest (1 view); Complete Time: 19:39 tm6 08/27 18:46 Order name: CT Chest For PE Angio; Complete Time: 20:18 snw 08/27 18:02 Order name: EKG; Complete Time: 18:02 tm6 08/27 18:02 Order name: Cardiac monitoring; Complete Time: 18:02 tm6 08/27 18:02 Order name: EKG - Nurse/Tech; Complete Time: 18:02 tm6 08/27 18:02 Order name: IV Saline Lock; Complete Time: 18:02 tm6 08/27 18:02 Order name: Labs collected and sent; Complete Time: 18:02 tm6 08/27 18:02 Order name: O2 Per Protocol; Complete Time: 18:02 tm6 08/27 18:02 Order name: O2 Sat Monitoring; Complete Time: 18:02 tm6 EC:48 Rate is 72 beats/min. Rhythm is regular. QRS [place] is Normal. NV interval is normal. QRS snw interval is normal. QT interval is normal. Clinical impression: NSR w/ Non-specific ST/T Changes. Administered Medications: No medications were administered Disposition Summary: 08/27/23 20:36 Discharge Ordered Notes: Already taking Abx and Steroid dose pack Location: Home snw Condition: Stable snw Diagnosis - COPD/ Chronic obstructive pulmonary disease with (acute) exacerbation snw Followup: snw - With: Emergency Department - When: As needed - Reason: Worsening of condition Followup: snw - With: Private Physician - When: 1 - 2 days - Reason: Recheck today's complaints, Continuance of care, Re-evaluation by your physician Discharge Instructions: - Discharge Summary Sheet snw - Chronic Obstructive Pulmonary Disease Exacerbation snw Forms: - Medication Reconciliation Form snw - Thank You Letter snw - Antibiotic Education snw - Prescription Opioid Use snw - Patient Portal Instructions snw - Leadership Thank You Letter snw Addendum: 09/05/2023 09:39 I reviewed the patient's care provided by the Advanced Practice Provider and agree with lindsey vazquez the diagnosis and treatment plan. Signatures: Dispatcher [employer] Ila Maloney FNP-C FRUIT COORDINATOR-Csnw Ashley Henry, RN RN ko1 Charlie Valencia MD MD rt Bebo Hart Tawney RN RN [id number] Corrections: (The following items were deleted from the chart) 08/27 19:48 18:58 BiPap ([employer] Only)+[email or web address] ordered. EDMS EDMS
[2023-08-27 22:03] VITALS: TEMP 97.4
[2023-08-27 22:20] VITALS: BP 148/78; O2SAT 98
--- NOTE | 2023-08-30 13:52 | EKG ---
Test Date: 2023-08-27 Test Time: 18:11:26 Mangle Feeder: Qiana LAGUNA MEASUREMENT RESULTS: Intervals: Rate: 70 TX: 144 QRSD: 92 QT: 418 QTc: 451 [place]: P: 77 TX: 144 QRS: 82 T: 76 INTERPRETIVE STATEMENTS: Normal sinus rhythm ST elevation, consider early repolarization, pericarditis, or injury Nonspecific ST abnormality Abnormal ECG Compared to ECG 08/27/2023 17:48:05 No significant changes Electronically Signed On 08-30-23 13:42:14 COLLECTIONS ASSISTANT by Ric Pandya
--- NOTE | 2023-08-30 13:52 | EKG ---
Test Date: 2023-08-27 Test Time: 17:48:05 Composition Roofer: Qiana LAGUNA MEASUREMENT RESULTS: Intervals: Rate: 72 SD: 138 QRSD: 88 QT: 412 QTc: 451 [place]: P: 79 SD: 138 QRS: 84 T: 79 INTERPRETIVE STATEMENTS: Normal sinus rhythm Nonspecific ST abnormality Abnormal ECG Compared to ECG 08/19/2023 03:48:35 No significant changes Electronically Signed On 08-30-23 13:42:15 BUSH HOG OPERATOR by Ric Pandya
== END 2023-08-27 21:37 | disposition home or self-care (01) ==
LOC: ER 17:37
DX: J44.1 Chronic obstructive pulmonary disease with (acute) exacerbation (principal); I48.91 Unspecified atrial fibrillation; I10 Essential (primary) hypertension; E78.5 Hyperlipidemia, unspecified; I25.2 Old myocardial infarction; F17.210 Nicotine dependence, cigarettes, uncomplicated; Z86.73 Personal history of transient ischemic attack (TIA), and cerebral infarction without residual deficits; Z95.0 Presence of cardiac pacemaker
CPT/HCPCS: 93005 ×2; 85025; 80048; 36415; 85379; 84484; 71275; 71045; 82805; 99284; 36600; Q9967

== ENCOUNTER → 2023-09-08 | Emergency (ER) | payer OTHER ==
[~2023-09-08] MED LIST: ALBUTEROL 2.5 MG/3 ML NEB SOL ONE; IPRATROPIUM BROM 0.5MG/2.5ML ONE; METHYLPREDNISOLONE 125 MG INJ ONE
--- OUTSIDE RECORDS SUMMARY | 2023-09-08 17:48 | XMS REPORT | Continuity of Care Document ---
Author Name Unknown Address [address] [facility] [address] [place] [address] [facility] thconnect Address [address] [facility]. [address] [place] [address] Care Team Providers Care Paving Bed Maker Name Role Phone MILY GOODWIN Primary Care Physician Unavailable HERMINIA OH Attending Clinician Unavailable NOMI MARY Attending Clinician Unavailable NOMI MARY Attending Clinician Unavailable Nomi Mary DO Attending Clinician [phone] Doctor Unassigned, [place] Attending Clinician U elaina Monge RN, Marika Friedman Attending Clinician [phone] MARELY WATTERS Attending Clinician Unavaila MARELY Meehan Attending Clinician Unavaila CARL Bowman Attending Clinician Unavailable CARL ORLANDO Attending Clinician Unavailable MILY GOODWIN Attending Clinician April Mily Ruiz MD Attending Clinician Taylor Frye RN Attending Clinician Unavailab TRAVIS Katz Attending Clinician Unavailable Iza Portillo Attending Clinician [phone] Francisca Bryant DO Attending Clinician +[phone] Travis Zeng MD Attending Clinician +[phone] PRADIP AUSTIN Attending Clinician Unavaila Pradip Du Attending Clinician [phone] HERMINIA CHO Attending Clinician Unavailable Herminia Cho MD Attending Clinician + FRANCISCA BRYANT Attending Clinician Unavailab LOUIS Ham Attending Clinician Unavailable Louis Hong DO Attending Clinician + Bessie Oswald MD Attending Clinician +[phone] RACHAEL FLOWERS Attending Clinician Unavailable Rachael Flowers MD Attending Clinician [phone] LEOBARDO SLOAN Attending Clinician Unavailable Leobardo Sloan MD Attending Clinician +[phone] BESSIE OSWALD Attending Clinician Unavailable STEPHANIE ALMONTE Attending Clinician Unavail able Stephanie Almonte MD Attending Clinician [phone] IZA VARMA Attending Clinician Unavailable Kathia Paula MD Attending Clinician [phone] Agapito Hackett MD Attending Clinician [phone] María Diaz DO Attending Clinician [phone] MARISOL DEVLIN Attending Clinician Unavailable Marisol Devlin MD Attending Clinician [phone] Dedrick Toth MD Attending Clinician [phone] Cecy Caro LVN Attending Clinician [phone] Carlo Valdez Attending Clinician + [phone] Abi Swan MD Attending Clinician [phone] Clive Contreras MD Attending Clinician [phone] ERNESTO PIPER Attending Clinician Unavailable ERNESTO PIPER Attending Clinician Unavailable Krissy Powers MD Attending Clinician [phone] LEILA CHAPA Attending Clinician Unavailable Leila Chapa MD Attending Clinician [phone] Jeanette Weaver Attending Clinician [phone] [facility] Attending Clinician UnavailGokul Lewis MD Attending Clinician [phone] GOKUL TURNER Attending Clinician Unavailable , Adc Surg Spec Procedure Attending Clinician Unavailable JEANETTE MCDANIEL Attending Clinician Unavailable Chris ZAMORA, Herminia Chandler Attending Clinician UnavailRamesh Baires Attending Clinician [phone] TRAVIS ZENG Admitting Clinician Unavailable Travis Zeng MD Admitting Clinician [phone] STEPHANIE ALMONTE Admitting Clinician Unavail able LOUIS HONG Admitting Clinician Unavailable María Diaz DO Admitting Clinician [phone] MARISOL DEVLIN Admitting Clinician Unavailable IZA VARMA Admitting Clinician Unavailable Clive Contreras MD Admitting Clinician [phone] KRISSY POWERS Admitting Clinician Unavailable Krissy Powers MD Admitting Clinician [phone] MARÍA DIAZ Admitting Clinician Unavailable HERMINIA CHO Admitting Clinician Unavailable SAUD SANDERS Admitting Clinician Unavailable Payers Payer Name Policy Type Policy Number Effective Date Expirati on Date Source [employer] MEDICARE GOLD [id number] 2018 00:00:00 [employer] [id number] 2022 00:00:00 Problems Condition Name Condition Details Condition Category Status Onset Date Resolution Date Last Treatment Date Treating Clinician Comments Source Mitral regurgitat ion Mitral regurgitat ion Disease Active 02-16 00:00: 00 [facility] Hypotensio n, unspecifie d hypotensio n type Hypotensio n, unspecifie d hypotensio n type Disease Active 02-15 00:00: 00 [facility] 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 Disease Active 2023-0 5-03 00:00: 00 [facility] Confusion Confusion Disease Active 3-24 00:00: 00 [facility] Shortness of breath Shortness of breath Disease Active 3-11 00:00: 00 [facility] SOB (shortness of breath) SOB (shortness of breath) Disease Active 2-21 00:00: 00 [facility] 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 heart failure Disease Active 2018-09 00:00: 00 [facility] PAF (paroxysma l atrial fibrillati on) PAF (paroxysma l atrial fibrillati on) Disease Active 2018-09 00:00: 00 [facility] NSVT (nonsustai charlette ventricula r tachycardi a) NSVT (nonsustai charlette ventricula r tachycardi a) Disease Active 2018-09 00:00: 00 [facility] Acute on chronic combined systolic and diastolic congestive heart failure Acute on chronic combined systolic and diastolic congestive heart failure Disease Active 2018-09 00:00: 00 [facility] Nonrheumat ic mitral valve stenosis Nonrheumat ic mitral valve stenosis Disease Active 2018-09 00:00: 00 [facility] COPD exacerbati on COPD exacerbati on Disease Active 2018-09 00:00: 00 [facility] Cigarette smoker Cigarette smoker Disease Active 2018-09 00:00: 00 [facility] Troponin I above reference range Troponin I above reference range Disease Active 2018-09 00:00: 00 [facility] Hyponatrem ia Hyponatrem ia Disease Active 2018-09 00:00: 00 [facility] Hypoxia Hypoxia Disease Active 2018-09 00:00: 00 [facility] Acute respirator y distress Acute respirator y distress Disease Active 2018-09 00:00: 00 [facility] Left heart failure Left heart failure Disease Active 2013-09 00:00: 00 [facility] Closed fracture of zygoma Closed fracture of zygoma Disease Active 2013-09 00:00: 00 Overview: Formattin g of this note might be different from the original. Chronic Fracture - not acute [facility] Fall Fall Disease Active 2013-09 00:00: 00 [facility] Atrial fibrillati on Atrial fibrillati on Disease Active 2013-09 00:00: 00 [facility] VT (ventricul ar tachycardi a) VT (ventricul ar tachycardi a) Disease Active 2013-09 00:00: 00 [facility] Allergies, Adverse Reactions, Alerts Allergy Name Allergy Type Status Severity Reaction(s) Onset Date Inactive Date Treating Clinician Comments Source NO KNOWN ALLERGIE S Drug Class Active [facility] Social History Social Habit Start Date Stop Date Quantity Comments Source Gender identity [facility] of tobacco use Passive smoker [facility] History SDOH Social Connections Get Together [facility] History SDOH Social Connections [facility] History SDOH Social Connections Membership [facility] History SDOH Social Connections Meetings [facility] History of Social function 2023-03-01 00:00:00 2023-03-01 00:00:00 [facility] Alcohol intake 2023-03-01 00:00:00 2023-03-01 00:00:00 Current drinker of alcohol (finding) [facility] History SDOH Housing Unable to Pay 2023-02-18 00:00:00 2023-02-18 00:00:00 2 [facility] History SDOH Housing Places Lived 2023-02-18 00:00:00 2023-02-18 00:00:00 1 [facility] History SDOH Housing Homeless Last Year 2023-02-18 00:00:00 2023-02-18 00:00:00 2 [facility] History SDOH Alcohol Frequency 2023-02-18 00:00:00 2023-02-18 00:00:00 1 [facility] History SDOH Social Connections Phone 2023-02-18 00:00:00 2023-02-18 00:00:00 5 [facility] History SDOH Social Connections Living 2023-02-18 00:00:00 2023-02-18 00:00:00 7 [facility] History SDOH Physical Activity DPW 2023-02-18 00:00:00 2023-02-18 00:00:00 0 [facility] History SDOH Physical Activity MPS 2023-02-18 00:00:00 2023-02-18 00:00:00 0 [facility] History SDOH Financial 2023-02-18 00:00:00 2023-02-18 00:00:00 5 [facility] History SDOH Food Worry 2023-02-18 00:00:00 2023-02-18 00:00:00 1 [facility] History SDOH Food Scarcity 2023-02-18 00:00:00 2023-02-18 00:00:00 1 [facility] History SDOH Transport Med 2023-02-18 00:00:00 2023-02-18 00:00:00 2 [facility] History SDOH Transport Non-Med 2023-02-18 00:00:00 2023-02-18 00:00:00 2 [facility] Exposure to SARS-CoV-2 (event) 2023-02-05 00:00:00 2023-02-15 15:15:00 Not sure [facility] History SDOH Alcohol Std Drinks 2022-12-02 00:00:00 2022-12-02 00:00:00 3 [facility] History SDOH Alcohol Binge 2022-12-02 00:00:00 2022-12-02 00:00:00 1 [facility] Cigarettes smoked current (pack per day) - Reported 2022-11-09 00:00:00 2022-11-09 00:00:00 [facility] Tobacco use and exposure 2022-11-09 00:00:00 2022-11-09 00:00:00 User of smokeless tobacco [facility] Education - What is the highest level of school you have completed or the highest degree you have received? 2022-11-09 00:00:00 2022-11-09 00:00:00 High school graduate [facility] Alcohol Comment 2014-08-27 00:00:00 2014-08-27 00:00:00 8 drinks per day [facility] Sex Assigned At 1960 00:00:00 1960 00:00:00 [facility] Smoking Status Start Date Stop Date Source Smokes tobacco daily 2022-11-09 00:00:00 [facility] Medications Ordered Medication Name Filled Medication Name Start Date Stop Date Current Medication? Ordering Clinician Indication Dosage Frequency Signature (SIG) Comments Components Source khadar sim (INCRUSE ELLIPTA) 62.5 mcg/actuati on DsDv 2022-09 0- 00:00: 00 Yes [id number] 1{puff} Inhale 1 Puff in the morning. [facility] tiotropium 18 mcg inhalation 2022-09 0 00:00: 00 Yes 18ug Inhale 1 capsule in the morning. [facility] tiotropium 18 mcg inhalation 2022-09 0 00:00: 00 Yes 18ug Inhale 1 capsule in the morning. [facility] tiotropium 18 mcg inhalation 2022-09 0 00:00: 00 Yes 18ug Inhale 1 capsule in the morning. [facility] fluticasone propion-bella meteroL (ADVAIR DISKUS) 250-50 mcg/dose inhalation disk 04-19 00:00: 00 Yes 1{puff} Inhale 1 Puff in the morning and 1 Puff in the evening. [facility] tiotropium 18 mcg inhalation 04-19 00:00: 00 Yes 18ug Inhale 1 capsule in the morning. [facility] albuterol 90 mcg/actuati on inhaler 04-19 00:00: 00 Yes 2{puff} Inhale 2 Puffs every 4 (four) hours as needed for Wheezing or Shortness of Breath. [facility] ipratropium -albuteroL 0.5 mg-3 mg(2.5 mg base)/3 mL nebulizer solution 04-19 00:00: 00 Yes [id number] 3mL Inhale 3 mL every 6 (six) hours as needed for Wheezing. [facility] fluticasone propion-bella meteroL (ADVAIR DISKUS) 250-50 mcg/dose inhalation disk 04-19 00:00: 00 Yes 1{puff} Inhale 1 Puff in the morning and 1 Puff in the evening. [facility] tiotropium 18 mcg inhalation 04-19 00:00: 00 Yes 18ug Inhale 1 capsule in the morning. [facility] albuterol 90 mcg/actuati on inhaler 04-19 00:00: 00 Yes 2{puff} Inhale 2 Puffs every 4 (four) hours as needed for Wheezing or Shortness of Breath. [facility] ipratropium -albuteroL 0.5 mg-3 mg(2.5 mg base)/3 mL nebulizer solution 04-19 00:00: 00 Yes [id number] 3mL Inhale 3 mL every 6 (six) hours as needed for Wheezing. [facility] fluticasone propion-bella meteroL (ADVAIR DISKUS) 250-50 mcg/dose inhalation disk 04-19 00:00: 00 Yes 1{puff} Inhale 1 Puff in the morning and 1 Puff in the evening. [facility] tiotropium 18 mcg inhalation 04-19 00:00: 00 Yes 18ug Inhale 1 capsule in the morning. [facility] albuterol 90 mcg/actuati on inhaler 04-19 00:00: 00 Yes 2{puff} Inhale 2 Puffs every 4 (four) hours as needed for Wheezing or Shortness of Breath. [facility] ipratropium -albuteroL 0.5 mg-3 mg(2.5 mg base)/3 mL nebulizer solution 04-19 00:00: 00 Yes [id number] 3mL Inhale 3 mL every 6 (six) hours as needed for Wheezing. [facility] fluticasone propion-bella meteroL (ADVAIR DISKUS) 250-50 mcg/dose inhalation disk 04-19 00:00: 00 Yes 1{puff} Inhale 1 Puff in the morning and 1 Puff in the evening. [facility] albuterol 90 mcg/actuati on inhaler 04-19 00:00: 00 Yes 2{puff} Inhale 2 Puffs every 4 (four) hours as needed for Wheezing or Shortness of Breath. [facility] ipratropium -albuteroL 0.5 mg-3 mg(2.5 mg base)/3 mL nebulizer solution 04-19 00:00: 00 Yes [id number] 3mL Inhale 3 mL every 6 (six) hours as needed for Wheezing. [facility] fluticasone propion-bella meteroL (ADVAIR DISKUS) 250-50 mcg/dose inhalation disk 04-19 00:00: 00 Yes 1{puff} Inhale 1 Puff in the morning and 1 Puff in the evening. [facility] albuterol 90 mcg/actuati on inhaler 04-19 00:00: 00 Yes 2{puff} Inhale 2 Puffs every 4 (four) hours as needed for Wheezing or Shortness of Breath. [facility] ipratropium -albuteroL 0.5 mg-3 mg(2.5 mg base)/3 mL nebulizer solution 04-19 00:00: 00 Yes [id number] 3mL Inhale 3 mL every 6 (six) hours as needed for Wheezing. [facility] fluticasone propion-bella meteroL (ADVAIR DISKUS) 250-50 mcg/dose inhalation disk 04-19 00:00: 00 Yes 1{puff} Inhale 1 Puff in the morning and 1 Puff in the evening. [facility] albuterol 90 mcg/actuati on inhaler 04-19 00:00: 00 Yes 2{puff} Inhale 2 Puffs every 4 (four) hours as needed for Wheezing or Shortness of Breath. [facility] ipratropium -albuteroL 0.5 mg-3 mg(2.5 mg base)/3 mL nebulizer solution 04-19 00:00: 00 Yes [id number] 3mL Inhale 3 mL every 6 (six) hours as needed for Wheezing. [facility] tiotropium 18 mcg inhalation 8 00:00: 00 07-08 00:00 :00 No 18ug Inhale 1 capsule in the morning. [facility] albuterol 2.5 mg /3 mL (0.083 %) nebulizer solution 03-03 00:00: 00 Yes [id number] 2.5mg Inhale 3 mL every 4 (four) hours. May also nebulize one extra every 6 hours. [facility] albuterol 2.5 mg /3 mL (0.083 %) nebulizer solution 03-03 00:00: 00 Yes [id number] 2.5mg Inhale 3 mL every 4 (four) hours. May also nebulize one extra every 6 hours. [facility] albuterol 2.5 mg /3 mL (0.083 %) nebulizer solution 03-03 00:00: 00 Yes [id number] 2.5mg Inhale 3 mL every 4 (four) hours. May also nebulize one extra every 6 hours. [facility] albuterol 2.5 mg /3 mL (0.083 %) nebulizer solution 03-03 00:00: 00 Yes [id number] 2.5mg Inhale 3 mL every 4 (four) hours. May also nebulize one extra every 6 hours. [facility] albuterol 2.5 mg /3 mL (0.083 %) nebulizer solution 03-03 00:00: 00 Yes [id number] 2.5mg Inhale 3 mL every 4 (four) hours. May also nebulize one extra every 6 hours. [facility] albuterol 2.5 mg /3 mL (0.083 %) nebulizer solution 03-03 00:00: 00 Yes [id number] 2.5mg Inhale 3 mL every 4 (four) hours. May also nebulize one extra every 6 hours. [facility] albuterol 2.5 mg /3 mL (0.083 %) nebulizer solution 2022-0 6-15 00:00: 00 Yes [id number] 2.5mg Inhale 3 mL every 4 (four) hours. May also nebulize one extra every 6 hours. [facility] donepeziL 5 mg tablet 2022-0 6-13 00:00: 00 Yes [id number] 5mg Take 1 tablet by mouth in the morning. [facility] memantine 5 mg tablet 2022-0 6-13 00:00: 00 Yes [id number] 5mg Take 1 tablet by mouth in the morning. [facility] donepeziL 5 mg tablet 2022-0 6-13 00:00: 00 Yes [id number] 5mg Take 1 tablet by mouth in the morning. [facility] memantine 5 mg tablet 2022-0 6-13 00:00: 00 Yes [id number] 5mg Take 1 tablet by mouth in the morning. [facility] donepeziL 5 mg tablet 2022-0 6-13 00:00: 00 Yes [id number] 5mg Take 1 tablet by mouth in the morning. [facility] memantine 5 mg tablet 2022-0 6-13 00:00: 00 Yes [id number] 5mg Take 1 tablet by mouth in the morning. [facility] donepeziL 5 mg tablet 2022-0 -13 00:00: 00 Yes [id number] 5mg Take 1 tablet by mouth in the morning. [facility] memantine 5 mg tablet 2022-0 6-13 00:00: 00 Yes [id number] 5mg Take 1 tablet by mouth in the morning. [facility] donepeziL 5 mg tablet 3-0 6-13 00:00: 00 Yes [id number] 5mg Take 1 tablet by mouth in the morning. [facility] memantine 5 mg tablet 3-0 6-13 00:00: 00 Yes [id number] 5mg Take 1 tablet by mouth in the morning. [facility] donepeziL 5 mg tablet 3-0 6-13 00:00: 00 Yes [id number] 5mg Take 1 tablet by mouth in the morning. [facility] memantine 5 mg tablet 2022-0 13 00:00: 00 Yes [id number] 5mg Take 1 tablet by mouth in the morning. [facility] donepeziL 5 mg tablet 2022-0 13 00:00: 00 Yes [id number] 5mg Take 1 tablet by mouth in the morning. [facility] memantine 5 mg tablet 2022-0 13 00:00: 00 Yes [id number] 5mg Take 1 tablet by mouth in the morning. [facility] donepeziL 5 mg tablet 2022-0 03-01 00:00: 00 Yes [id number] 5mg Take 1 tablet by mouth in the morning. [facility] memantine 5 mg tablet 2022-0 03-01 00:00: 00 Yes [id number] 5mg Take 1 tablet by mouth in the morning. [facility] donepeziL 5 mg tablet 2022-0 03-01 00:00: 00 Yes [id number] 5mg Take 1 tablet by mouth in the morning. [facility] memantine 5 mg tablet 2022-0 03-01 00:00: 00 Yes [id number] 5mg Take 1 tablet by mouth in the morning. [facility] busPIRone 10 mg tablet 0 02-18 16:15: 12 Yes 10mg Take 1 tablet by mouth in the morning and 1 tablet in the evening. [facility] rivaroxaban 15 mg tablet 0 02-18 16:15: 12 Yes 15mg Take 1 tablet by mouth in the morning. [facility] ASPIRIN ORAL 2022-0 02-18 16:15: 12 Yes 81mg Take 81 mg by mouth in the morning. tablet [facility] busPIRone 10 mg tablet 2022-0 02-18 16:15: 12 Yes 10mg Take 1 tablet by mouth in the morning and 1 tablet in the evening. [facility] rivaroxaban 15 mg tablet 2022-0 02-18 16:15: 12 Yes 15mg Take 1 tablet by mouth in the morning. [facility] ASPIRIN ORAL 3-0 02-18 16:15: 12 Yes 81mg Take 81 mg by mouth in the morning. tablet [facility] busPIRone 10 mg tablet 2022-0 02-18 16:15: 12 Yes 10mg Take 1 tablet by mouth in the morning and 1 tablet in the evening. [facility] rivaroxaban 15 mg tablet 0 02-18 16:15: 12 Yes 15mg Take 1 tablet by mouth in the morning. [facility] ASP[facility] 20[facility]-0 02-18 16:15: 12 Yes 81mg Take 81 mg by mouth in the morning. tablet [facility] busPIRone 10 mg tablet 2022-0 02-18 16:15: 12 Yes 10mg Take 1 tablet by mouth in the morning and 1 tablet in the evening. [facility] rivaroxaban 15 mg tablet 0 02-18 16:15: 12 Yes 15mg Take 1 tablet by mouth in the morning. [facility] ASPIRIN ORAL 2022-0 02-18 16:15: 12 Yes 81mg Take 81 mg by mouth in the morning. tablet [facility] busPIRone 10 mg tablet 0 02-18 16:15: 12 Yes 10mg Take 1 tablet by mouth in the morning and 1 tablet in the evening. [facility] rivaroxaban 15 mg tablet 0 02-18 16:15: 12 Yes 15mg Take 1 tablet by mouth in the morning. [facility] ASPIRIN ORAL 2022-0 02-18 16:15: 12 Yes 81mg Take 81 mg by mouth in the morning. tablet [facility] busPIRone 10 mg tablet 0 02-18 16:15: 12 Yes 10mg Take 1 tablet by mouth in the morning and 1 tablet in the evening. [facility] mg tablet 2022-0 02-18 16:15: 12 Yes 15mg Take 1 tablet by mouth in the morning. [facility] ASPIRIN ORAL 2022-0 02-18 16:15: 12 Yes 81mg Take 81 mg by mouth in the morning. tablet [facility] busPIRone 10 mg tablet 2022-0 02-18 16:15: 12 Yes 10mg Take 1 tablet by mouth in the morning and 1 tablet in the evening. [facility] rivaroxaban 15 mg tablet 2022-0 02-18 16:15: 12 Yes 15mg Take 1 tablet by mouth in the morning. [facility] ASPIRIN ORAL 3-0 02-18 16:15: 12 Yes 81mg Take 81 mg by mouth in the morning. tablet [facility] busPIRone 10 mg tablet 2022-0 02-18 16:15: 12 Yes 10mg Take 1 tablet by mouth in the morning and 1 tablet in the evening. [facility] rivaroxaban 15 mg tablet 2022-0 02-18 16:15: 12 Yes 15mg Take 1 tablet by mouth in the morning. [facility] ASPIRIN ORAL 2022-0 02-18 16:15: 12 Yes 81mg Take 81 mg by mouth in the morning. tablet [facility] busPIRone 10 mg tablet 2022-0 02-18 16:15: 12 Yes 10mg Take 1 tablet by mouth in the morning and 1 tablet in the evening. [facility] rivaroxaban 15 mg tablet 0 02-18 16:15: 12 Yes 15mg Take 1 tablet by mouth in the morning. [facility] ASPIRIN ORAL 2022-0 02-18 16:15: 12 Yes 81mg Take 81 mg by mouth in the morning. tablet [facility] busPIRone 10 mg tablet 2022-0 02-18 16:15: 12 Yes 10mg Take 1 tablet by mouth in the morning and 1 tablet in the evening. [facility] rivaroxaban 15 mg tablet 2022-0 02-18 16:15: 12 Yes 15mg Take 1 tablet by mouth in the morning. [facility] ASPIRIN ORAL 3-0 02-18 16:15: 12 Yes 81mg Take 81 mg by mouth in the morning. tablet [facility] busPIRone 10 mg tablet 2022-0 02-18 16:15: 12 Yes 10mg Take 1 tablet by mouth in the morning and 1 tablet in the evening. [facility] mg tablet 2022-0 02-18 16:15: 12 Yes 15mg Take 1 tablet by mouth in the morning. [facility] ASPIRIN ORAL 0 02-18 16:15: 12 Yes 81mg Take 81 mg by mouth in the morning. tablet [facility] busPIRone 10 mg tablet 02-18 16:15: 12 Yes 10mg Take 1 tablet by mouth in the morning and 1 tablet in the evening. [facility] rivaroxaban 15 mg tablet 0 02-18 16:15: 12 Yes 15mg Take 1 tablet by mouth in the morning. [facility] ASPIRIN ORAL 0 02-18 16:15: 12 Yes 81mg Take 81 mg by mouth in the morning. tablet [facility] busPIRone 10 mg tablet 0 02-18 16:15: 12 Yes 10mg Take 1 tablet by mouth in the morning and 1 tablet in the evening. [facility] rivaroxaban 15 mg tablet 02-18 16:15: 12 Yes 15mg Take 1 tablet by mouth in the morning. [facility] ASPIRIN ORAL 02-18 16:15: 12 Yes 81mg Take 81 mg by mouth in the morning. tablet [facility] predniSONE 20 mg tablet 0 02-18 00:00: 00 02-22 04:59 :00 No [id number] 40mg Take 2 tablets by mouth in the morning for 3 days. [facility] predniSONE 20 mg tablet 0 02-18 00:00: 00 02-22 04:59 :00 No [id number] 40mg Take 2 tablets by mouth in the morning for 3 days. [facility] predniSONE 20 mg tablet 02-18 00:00: 00 02-22 04:59 :00 No [id number] 40mg Take 2 tablets by mouth in the morning for 3 days. [facility] midodrine 5 mg tablet 02-17 00:00: 00 Yes [id number] 5mg Take 1 tablet by mouth every 8 (eight) hours as needed (Hypotensi on SBP <95 or DBP <50). [facility] midodrine 5 mg tablet 02-17 00:00: 00 Yes [id number] 5mg Take 1 tablet by mouth every 8 (eight) hours as needed (Hypotensi on SBP <95 or DBP <50). [facility] midodrine 5 mg tablet 02-17 00:00: 00 Yes [id number] 5mg Take 1 tablet by mouth every 8 (eight) hours as needed (Hypotensi on SBP <95 or DBP <50). [facility] midodrine 5 mg tablet 02-17 00:00: 00 Yes [id number] 5mg Take 1 tablet by mouth every 8 (eight) hours as needed (Hypotensi on SBP <95 or DBP <50). [facility] midodrine 5 mg tablet 02-17 00:00: 00 Yes [id number] 5mg Take 1 tablet by mouth every 8 (eight) hours as needed (Hypotensi on SBP <95 or DBP <50). [facility] midodrine 5 mg tablet 02-17 00:00: 00 Yes [id number] 5mg Take 1 tablet by mouth every 8 (eight) hours as needed (Hypotensi on SBP <95 or DBP <50). [facility] midodrine 5 mg tablet 02-17 00:00: 00 Yes [id number] 5mg Take 1 tablet by mouth every 8 (eight) hours as needed (Hypotensi on SBP <95 or DBP <50). [facility] midodrine 5 mg tablet 02-17 00:00: 00 Yes [id number] 5mg Take 1 tablet by mouth every 8 (eight) hours as needed (Hypotensi on SBP <95 or DBP <50). [facility] midodrine 5 mg tablet 02-17 00:00: 00 Yes [id number] 5mg Take 1 tablet by mouth every 8 (eight) hours as needed (Hypotensi on SBP <95 or DBP <50). [facility] midodrine 5 mg tablet 02-17 00:00: 00 Yes [id number] 5mg Take 1 tablet by mouth every 8 (eight) hours as needed (Hypotensi on SBP <95 or DBP <50). [facility] midodrine 5 mg tablet 0 02-17 00:00: 00 Yes [id number] 5mg Take 1 tablet by mouth every 8 (eight) hours as needed (Hypotensi on SBP <95 or DBP <50). [facility] midodrine 5 mg tablet 0 02-17 00:00: 00 Yes [id number] 5mg Take 1 tablet by mouth every 8 (eight) hours as needed (Hypotensi on SBP <95 or DBP <50). [facility] midodrine 5 mg tablet 02-17 00:00: 00 Yes [id number] 5mg Take 1 tablet by mouth every 8 (eight) hours as needed (Hypotensi on SBP <95 or DBP <50). [facility] midodrine (PROAMATINE ) tablet 5 mg 02-16 19:00: 00 Yes 5mg 5 mg, Oral, Q8H, First dose on Tue02/16/23 at 1400, Until Discontinu ed, Routine [facility] rivaroxaban (XARELTO) tablet 15 mg 02-16 14:00: 00 Yes 15mg 15 mg, Oral, DAILY, First dose on Tue02/16/23 at 0900, Until Discontinu ed, Routine [facility] montelukast (SINGULAIR) tablet 10 mg 02-16 14:00: 00 Yes 10mg 10 mg, Oral, DAILY, First dose on Tue02/16/23 at 0900, Until Discontinu ed, Routine [facility] memantine (NAMENDA) tablet 5 mg 02-16 14:00: 00 Yes 5mg 5 mg, Oral, DAILY, First dose on Tue02/16/23 at 0900, Until Discontinu ed, Routine
hotel staff member approving Restricted medication : DEDRICK TOTH [facility] donepeziL (ARICEPT) tablet 5 mg 02-16 14:00: 00 Yes 5mg 5 mg, Oral, DAILY, First dose on Tue02/16/23 at 0900, Until Discontinu ed, Routine [facility] aspirin EC tablet 81 mg 02-16 14:00: 00 Yes 81mg 81 mg, Oral, DAILY, First dose on Tue02/16/23 at 0900, Until Discontinu ed [facility] docusate (COLACE) capsule 100 mg 02-16 14:00: 00 Yes 100mg 100 mg, Oral, DAILY, First dose on Tue02/16/23 at 0900, Until Discontinu ed, Routine [facility] predniSONE (DELTASONE) tablet 40 mg 02-16 14:00: 00 02-21 13:59 :00 No 40mg 40 mg, Oral, DAILY, 5 doses, First dose on Tue02/16/23 at 0900, Last dose on Tue02/20/23 at 0900, Routine [facility] sulfur hexafluorid e microsphr (LUMASON) injection 5 mL 02-16 14:00: 00 02-16 14:00 :00 No [id number] 5mL 5 mL, Intravenou s, ONCE, 1 dose, On Tue02/16/23 at 0900, Routine
hotel staff member approving Restricted medication : STEFFANIE REYES [facility] budesonide- formoteroL (SYMBICORT) 160-4.5 mcg/actuati on inhaler 2 Puff 02-16 13:00: 00 Yes 2{puff} 2 Puff, Inhalation , BID, First dose on Tue02/16/23 at 0800, Until Discontinu ed [facility] busPIRone (BUSPAR) tablet 10 mg 02-16 13:00: 00 Yes 10mg 10 mg, Oral, BID, First dose on Tue02/16/23 at 0800, Until Discontinu ed, Routine [facility] methylpredn isolone sod succ (SOLU-MEDRO L) injection 60 mg 02-16 05:43: 00 02-16 05:51 :00 No 60mg 60 mg, Intravenou s, ONCE, 1 dose, On Tue02/16/23 at 0045, 2 mL [facility] levoFLOXaci n in D5W (LEVAQUIN) 500 mg/100 [...]
Re stricted use approved by: [employer] PROVIDER [facility] doxycycline hyclate (Vibramycin ) capsule 100 mg 02-16 01:02: 11 02-16 21:57 :07 No 100mg 100 mg, Oral, Q12H ABX, 10 doses, First dose on Tue02/15/23 at 2015, Last dose on Tue02/20/23 at 0815, MICHAEL
Re ason for Anti-Infec tive: Documented Infection< br>Documen anirudh Infection Site: Respirator y
Durat ion of Therapy: 7 days [facility] NaCl 0.9% (NS) IV infusion 1,000 mL 02-16 01:00: 00 02-16 12:47 :05 No 1000mL at 100 mL/hr, IV Infusion, CONTINUOUS , Starting on Tue02/15/23 at 2000, Until Tue02/16/23 at 0747, Routine [facility] ipratropium -albuteroL (DUONEB) 0.5 mg-3 mg(2.5 mg base)/3 mL nebulizer solution 3 mL 02-16 00:53: 35 Yes 3mL 3 mL, Inhalation , Q6HPRN, Starting on Tue02/15/23 at 1953, Until Discontinu ed, Routine, Wheezing, Shortness of Breath [facility] HYDROcodone -acetaminop hen (NORCO) 10-325 mg tablet 1 tablet 02-16 00:52: 26 Yes 1{tbl} 1 tablet, Oral, Q6HPRN, Starting on Tue02/15/23 at 1951, Until Discontinu ed, Routine, Pain (scale 7-10) [facility] traMADoL (ULTRAM) tablet 50 mg 02-16 00:52: 22 02-18 00:51 :22 No 50mg 50 mg, Oral, Q8HPRN, Starting on Tue02/15/23 at 1951, Until Elizabeth 02/17/23 at 1950, Routine, Pain (scale 4-6) [facility] acetaminoph en (TYLENOL) tablet 650 mg 02-16 00:52: 16 Yes 650mg 650 mg, Oral, Q6HPRN, Starting on Tue02/15/23 at 1951, Until Discontinu ed, Routine, Pain (scale 1-3) [facility] NaCl 0.9% (NS) bolus infusion 1,000 mL 02-15 22:15: 00 02-15 22:51 :00 No 1000mL at 999 mL/hr, 1,000 mL, IV Infusion, ONCE, 1 dose, On Tue02/15/23 at 1715, [facility] NaCl 0.9% (NS) bolus infusion 1,000 mL 02-15 21:30: 00 02-15 22:43 :00 No 1000mL at 999 mL/hr, 1,000 mL, IV Infusion, ONCE, 1 dose, On Tue02/15/23 at 1630, [facility] NaCl 0.9% (NS) bolus infusion 1,000 mL 02-15 20:45: 00 02-15 22:43 :00 No 1000mL at 999 mL/hr, 1,000 mL, IV Infusion, ONCE, 1 dose, On Tue02/15/23 at 1545, [facility] ipratropium -albuteroL (DUONEB) 0.5 mg-3 mg(2.5 mg base)/3 mL nebulizer solution 3 mL 02-05 22:15: 00 02-06 10:14 :00 No 3mL 3 mL, Inhalation , ONCE, 1 dose, On 02/05/23 at 1715, [facility] ipratropium -albuteroL (DUONEB) 0.5 mg-3 mg(2.5 mg base)/3 mL nebulizer solution 3 mL 02-05 21:15: 00 02-05 20:17 :00 No 3mL 3 mL, Inhalation , ONCE, 1 dose, On 02/05/23 at 1615, [facility] predniSONE (DELTASONE) tablet 40 mg 02-05 20:15: 00 02-05 20:18 :00 No 40mg 40 mg, Oral, ONCE, 1 dose, On 02/05/23 at 1515, [facility] levalbutero l (XOPENEX) nebulizer solution 2.5 mg 02-04 21:15: 00 02-04 20:31 :00 No 2.5mg 2.5 mg, Inhalation , ONCE, 1 dose, On Tue02/04/23 at 1615, Routine [facility] ipratropium (ATROVENT) 0.02 % nebulizer solution 0.5 mg 02-04 21:15: 00 02-04 20:31 :00 No .5mg 0.5 mg, Inhalation , ONCE, 1 dose, On Tue02/04/23 at 1615, [facility] albuterol 90 mcg/actuati on inhaler 02-04 00:00: 00 Yes [id number] 2{puff} Inhale 2 Puffs every 4 (four) hours as needed for Wheezing or Shortness of Breath. [facility] albuterol 90 mcg/actuati on inhaler 02-04 00:00: 00 Yes [id number] 2{puff} Inhale 2 Puffs every 4 (four) hours as needed for Wheezing or Shortness of Breath. [facility] albuterol 90 mcg/actuati on inhaler 02-04 00:00: 00 Yes [id number] 2{puff} Inhale 2 Puffs every 4 (four) hours as needed for Wheezing or Shortness of Breath. [facility] albuterol 90 mcg/actuati on inhaler 02-04 00:00: 00 Yes [id number] 2{puff} Inhale 2 Puffs every 4 (four) hours as needed for Wheezing or Shortness of Breath. [facility] albuterol 90 mcg/actuati on inhaler 02-04 00:00: 00 Yes [id number] 2{puff} Inhale 2 Puffs every 4 (four) hours as needed for Wheezing or Shortness of Breath. [facility] albuterol 90 mcg/actuati on inhaler 02-04 00:00: 00 Yes [id number] 2{puff} Inhale 2 Puffs every 4 (four) hours as needed for Wheezing or Shortness of Breath. [facility] albuterol 90 mcg/actuati on inhaler 02-04 00:00: 00 Yes [id number] 2{puff} Inhale 2 Puffs every 4 (four) hours as needed for Wheezing or Shortness of Breath. [facility] albuterol 90 mcg/actuati on inhaler 02-04 00:00: 00 Yes [id number] 2{puff} Inhale 2 Puffs every 4 (four) hours as needed for Wheezing or Shortness of Breath. [facility] albuterol 90 mcg/actuati on inhaler 02-04 00:00: 00 Yes [id number] 2{puff} Inhale 2 Puffs every 4 (four) hours as needed for Wheezing or Shortness of Breath. [facility] albuterol 90 mcg/actuati on inhaler 02-04 00:00: 00 Yes [id number] 2{puff} Inhale 2 Puffs every 4 (four) hours as needed for Wheezing or Shortness of Breath. [facility] albuterol 90 mcg/actuati on inhaler 02-04 00:00: 00 04-19 00:00 :00 No [id number] 2{puff} Inhale 2 Puffs every 4 (four) hours as needed for Wheezing or Shortness of Breath. [facility] albuterol 90 mcg/actuati on inhaler 02-04 00:00: 00 04-19 00:00 :00 No [id number] 2{puff} Inhale 2 Puffs every 4 (four) hours as needed for Wheezing or Shortness of Breath. [facility] ipratropium -albuteroL (DUONEB) 0.5 mg-3 mg(2.5 mg base)/3 mL nebulizer solution 3 mL 02-03 21:00: 00 Yes 3mL 3 mL, Inhalation , QID, First dose on Tue02/03/23 at 1600, Until Discontinu ed, Routine [facility] methylpredn isolone sod succ (SOLU-MEDRO L) injection 125 mg 02-03 18:45: 00 02-03 18:16 :00 No 125mg 125 mg, Intravenou s, ONCE, 1 dose, On Tue02/03/23 at 1345, 2 mL [facility] ipratropium -albuteroL (DUONEB) 0.5 mg-3 mg(2.5 mg base)/3 mL nebulizer solution 3 mL 02-02 23:15: 00 02-02 22:13 :00 No 3mL 3 mL, Inhalation , ONCE, 1 dose, On Tue02/02/23 at 1815, Routine [facility] albuterol 90 mcg/actuati on inhaler 01-31 00:00: 00 Yes [id number] 2{puff} Inhale 2 Puffs every 4 (four) hours as needed for Wheezing, Shortness of Breath or Bronchospa sm. [facility] fluticasone propion-bella meteroL (ADVAIR DISKUS) 250-50 mcg/dose inhalation disk 01-31 00:00: 00 Yes [id number] 1{puff} Inhale 1 Puff in the morning and 1 Puff in the evening. [facility] montelukast 10 mg tablet 01-31 00:00: 00 Yes [id number] 10mg Take 1 tablet by mouth in the morning. [facility] tiotropium 18 mcg inhalation 01-31 00:00: 00 Yes [id number] 18ug Inhale 1 capsule in the morning. [facility] albuterol 90 mcg/actuati on inhaler 01-31 00:00: 00 Yes [id number] 2{puff} Inhale 2 Puffs every 4 (four) hours as needed for Wheezing, Shortness of Breath or Bronchospa sm. [facility] fluticasone propion-bella meteroL (ADVAIR DISKUS) 250-50 mcg/dose inhalation disk 01-31 00:00: 00 Yes [id number] 1{puff} Inhale 1 Puff in the morning and 1 Puff in the evening. [facility] montelukast 10 mg tablet 01-31 00:00: 00 Yes [id number] 10mg Take 1 tablet by mouth in the morning. [facility] tiotropium 18 mcg inhalation 01-31 00:00: 00 Yes [id number] 18ug Inhale 1 capsule in the morning. [facility] albuterol 90 mcg/actuati on inhaler 01-31 00:00: 00 Yes [id number] 2{puff} Inhale 2 Puffs every 4 (four) hours as needed for Wheezing, Shortness of Breath or Bronchospa sm. [facility] fluticasone propion-bella meteroL (ADVAIR DISKUS) 250-50 mcg/dose inhalation disk 01-31 00:00: 00 Yes [id number] 1{puff} Inhale 1 Puff in the morning and 1 Puff in the evening. [facility] montelukast 10 mg tablet 01-31 00:00: 00 Yes [id number] 10mg Take 1 tablet by mouth in the morning. [facility] tiotropium 18 mcg inhalation 0 15 00:00: 00 Yes [id number] 18ug Inhale 1 capsule in the morning. [facility] albuterol 90 mcg/actuati on inhaler 2022-0 15 00:00: 00 Yes [id number] 2{puff} Inhale 2 Puffs every 4 (four) hours as needed for Wheezing, Shortness of Breath or Bronchospa sm. [facility] fluticasone propion-bella meteroL (ADVAIR DISKUS) 250-50 mcg/dose inhalation disk 2022-0 15 00:00: 00 Yes [id number] 1{puff} Inhale 1 Puff in the morning and 1 Puff in the evening. [facility] montelukast 10 mg tablet 2022-0 15 00:00: 00 Yes [id number] 10mg Take 1 tablet by mouth in the morning. [facility] tiotropium 18 mcg inhalation 2022-0 -15 00:00: 00 Yes [id number] 18ug Inhale 1 capsule in the morning. [facility] fluticasone propion-bella meteroL (ADVAIR DISKUS) 250-50 mcg/dose inhalation disk 2022-0 15 00:00: 00 Yes [id number] 1{puff} Inhale 1 Puff in the morning and 1 Puff in the evening. [facility] montelukast 10 mg tablet 2022-0 15 00:00: 00 Yes [id number] 10mg Take 1 tablet by mouth in the morning. [facility] tiotropium 18 mcg inhalation 2022-0 15 00:00: 00 Yes [id number] 18ug Inhale 1 capsule in the morning. [facility] fluticasone propion-bella meteroL (ADVAIR DISKUS) 250-50 mcg/dose inhalation disk 2022-0 15 00:00: 00 Yes [id number] 1{puff} Inhale 1 Puff in the morning and 1 Puff in the evening. [facility] montelukast 10 mg tablet 2022-0 15 00:00: 00 Yes [id number] 10mg Take 1 tablet by mouth in the morning. [facility] tiotropium 18 mcg inhalation 2022-0 -15 00:00: 00 Yes [id number] 18ug Inhale 1 capsule in the morning. [facility] fluticasone propion-bella meteroL (ADVAIR DISKUS) 250-50 mcg/dose inhalation disk 3-0 5-15 00:00: 00 Yes [id number] 1{puff} Inhale 1 Puff in the morning and 1 Puff in the evening. [facility] montelukast 10 mg tablet 3-0 5-15 00:00: 00 Yes [id number] 10mg Take 1 tablet by mouth in the morning. [facility] tiotropium 18 mcg inhalation 3-0 5-15 00:00: 00 Yes [id number] 18ug Inhale 1 capsule in the morning. [facility] fluticasone propion-bella meteroL (ADVAIR DISKUS) 250-50 mcg/dose inhalation disk 3-0 5-15 00:00: 00 Yes [id number] 1{puff} Inhale 1 Puff in the morning and 1 Puff in the evening. [facility] montelukast 10 mg tablet 2022-0 -15 00:00: 00 Yes [id number] 10mg Take 1 tablet by mouth in the morning. [facility] tiotropium 18 mcg inhalation 3-0 5-15 00:00: 00 Yes [id number] 18ug Inhale 1 capsule in the morning. [facility] fluticasone propion-bella meteroL (ADVAIR DISKUS) 250-50 mcg/dose inhalation disk 3-0 5-15 00:00: 00 Yes [id number] 1{puff} Inhale 1 Puff in the morning and 1 Puff in the evening. [facility] montelukast 10 mg tablet 3-0 5-15 00:00: 00 Yes [id number] 10mg Take 1 tablet by mouth in the morning. [facility] tiotropium 18 mcg inhalation 3-0 5-15 00:00: 00 Yes [id number] 18ug Inhale 1 capsule in the morning. [facility] fluticasone propion-bella meteroL (ADVAIR DISKUS) 250-50 mcg/dose inhalation disk 3-0 5-15 00:00: 00 Yes [id number] 1{puff} Inhale 1 Puff in the morning and 1 Puff in the evening. [facility] montelukast 10 mg tablet 2022-0 -15 00:00: 00 Yes [id number] 10mg Take 1 tablet by mouth in the morning. [facility] tiotropium 18 mcg inhalation 3-0 5-15 00:00: 00 Yes [id number] 18ug Inhale 1 capsule in the morning. [facility] fluticasone propion-bella meteroL (ADVAIR DISKUS) 250-50 mcg/dose inhalation disk 3-0 5-15 00:00: 00 Yes [id number] 1{puff} Inhale 1 Puff in the morning and 1 Puff in the evening. [facility] montelukast 10 mg tablet 2022-0 -15 00:00: 00 Yes [id number] 10mg Take 1 tablet by mouth in the morning. [facility] tiotropium 18 mcg inhalation 2022-0 -15 00:00: 00 Yes [id number] 18ug Inhale 1 capsule in the morning. [facility] fluticasone propion-bella meteroL (ADVAIR DISKUS) 250-50 mcg/dose inhalation disk 2022-0 15 00:00: 00 Yes [id number] 1{puff} Inhale 1 Puff in the morning and 1 Puff in the evening. [facility] montelukast 10 mg tablet 2022-0 -15 00:00: 00 Yes [id number] 10mg Take 1 tablet by mouth in the morning. [facility] tiotropium 18 mcg inhalation 3-0 5-15 00:00: 00 Yes [id number] 18ug Inhale 1 capsule in the morning. [facility] fluticasone propion-bella meteroL (ADVAIR DISKUS) 250-50 mcg/dose inhalation disk 3-0 5-15 00:00: 00 Yes [id number] 1{puff} Inhale 1 Puff in the morning and 1 Puff in the evening. [facility] montelukast 10 mg tablet 2023-0 5-15 00:00: 00 Yes [id number] 10mg Take 1 tablet by mouth in the morning. [facility] tiotropium 18 mcg inhalation 2022-0 5-15 00:00: 00 Yes [id number] 18ug Inhale 1 capsule in the morning. [facility] fluticasone propion-bella meteroL (ADVAIR DISKUS) 250-50 mcg/dose inhalation disk 2022-0 5-15 00:00: 00 Yes [id number] 1{puff} Inhale 1 Puff in the morning and 1 Puff in the evening. [facility] montelukast 10 mg tablet 2022-0 5-15 00:00: 00 Yes [id number] 10mg Take 1 tablet by mouth in the morning. [facility] tiotropium 18 mcg inhalation 2022-0 5-15 00:00: 00 Yes [id number] 18ug Inhale 1 capsule in the morning. [facility] montelukast 10 mg tablet 2022-0 -15 00:00: 00 Yes [id number] 10mg Take 1 tablet by mouth in the morning. [facility] montelukast 10 mg tablet 2022-0 -15 00:00: 00 Yes [id number] 10mg Take 1 tablet by mouth in the morning. [facility] montelukast 10 mg tablet 2022-0 -15 00:00: 00 Yes [id number] 10mg Take 1 tablet by mouth in the morning. [facility] montelukast 10 mg tablet 2022-0 5-15 00:00: 00 Yes [id number] 10mg Take 1 tablet by mouth in the morning. [facility] montelukast 10 mg tablet 3-0 5-15 00:00: 00 Yes [id number] 10mg Take 1 tablet by mouth in the morning. [facility] montelukast 10 mg tablet 3-0 5-15 00:00: 00 Yes [id number] 10mg Take 1 tablet by mouth in the morning. [facility] fluticasone propion-bella meteroL (ADVAIR DISKUS) 250-50 mcg/dose inhalation disk 15 00:00: 00 04-19 00:00 :00 No [id number] 1{puff} Inhale 1 Puff in the morning and 1 Puff in the evening. [facility] tiotropium 18 mcg inhalation 15 00:00: 00 04-19 00:00 :00 No [id number] 18ug Inhale 1 capsule in the morning. [facility] fluticasone propion-bella meteroL (ADVAIR DISKUS) 250-50 mcg/dose inhalation disk 01-31 00:00: 00 04-19 00:00 :00 No [id number] 1{puff} Inhale 1 Puff in the morning and 1 Puff in the evening. [facility] tiotropium 18 mcg inhalation 01-31 00:00: 00 04-19 00:00 :00 No [id number] 18ug Inhale 1 capsule in the morning. [facility] albuterol 90 mcg/actuati on inhaler 01-31 00:00: 00 02-04 00:00 :00 No [id number] 2{puff} Inhale 2 Puffs every 4 (four) hours as needed for Wheezing, Shortness of Breath or Bronchospa sm. [facility] ipratropium -albuteroL (DUONEB) 0.5 mg-3 mg(2.5 mg base)/3 mL nebulizer solution 3 mL 01-29 14:30: 00 01-29 13:29 :00 No 3mL 3 mL, Inhalation , ONCE, 1 dose, On 01/29/23 at 0930, MICHAEL [facility] predniSONE (DELTASONE) tablet 60 mg 01-29 13:30: 00 01-29 13:22 :00 No 60mg 60 mg, Oral, ONCE, 1 dose, On 01/29/23 at 0830, MICHAEL [facility] ipratropium -albuteroL (DUONEB) 0.5 mg-3 mg(2.5 mg base)/3 mL nebulizer solution 3 mL 01-27 13:00: 00 Yes 3mL 3 mL, Inhalation , QID, First dose on Tue01/27/23 at 0800, Until Discontinu ed, Routine [facility] ipratropium -albuteroL (DUONEB) 0.5 mg-3 mg(2.5 mg base)/3 mL nebulizer solution 3 mL 01-24 18:00: 00 01-24 18:15 :00 No 3mL 3 mL, Inhalation , ONCE, 1 dose, On Tue01/24/23 at 1300, MICHAEL [facility] furosemide (LASIX) injection 40 mg 01-24 18:00: 00 01-24 18:42 :00 No 40mg 40 mg, IV Push, ONCE, 1 dose, On Tue01/24/23 at 1300, MICHAEL [facility] aspirin tablet 325 mg 01-24 18:00: 00 01-24 18:44 :00 No 325mg 325 mg, Oral, ONCE, 1 dose, On Tue01/24/23 at 1300, STAT [facility] busPIRone 10 mg tablet 01-24 15:48: 43 Yes 10mg Take 1 tablet by mouth in the morning and 1 tablet in the evening. [facility] rivaroxaban 15 mg tablet 01-24 15:48: 43 Yes 15mg Take 1 tablet by mouth in the morning. [facility] ASPIRIN ORAL 01-24 15:48: 43 Yes 81mg Take 81 mg by mouth in the morning. tablet [facility] busPIRone 10 mg tablet 01-24 15:48: 43 Yes 10mg Take 1 tablet by mouth in the morning and 1 tablet in the evening. [facility] rivaroxaban 15 mg tablet 01-24 15:48: 43 Yes 15mg Take 1 tablet by mouth in the morning. [facility] ASPIRIN ORAL 01-24 15:48: 43 Yes 81mg Take 81 mg by mouth in the morning. tablet [facility] busPIRone 10 mg tablet 2023-0 5-08 15:48: 43 Yes 10mg Take 1 tablet by mouth in the morning and 1 tablet in the evening. [facility] rivaroxaban 15 mg tablet 2023-0 5-08 15:48: 43 Yes 15mg Take 1 tablet by mouth in the morning. [facility] ASPIRIN ORAL 2023-0 5-08 15:48: 43 Yes 81mg Take 81 mg by mouth in the morning. tablet [facility] busPIRone 10 mg tablet 3-0 5-08 15:48: 43 Yes 10mg Take 1 tablet by mouth in the morning and 1 tablet in the evening. [facility] rivaroxaban 15 mg tablet 2022-0 5-08 15:48: 43 Yes 15mg Take 1 tablet by mouth in the morning. [facility] ASPIRIN ORAL 2023-0 5-08 15:48: 43 Yes 81mg Take 81 mg by mouth in the morning. tablet [facility] busPIRone 10 mg tablet 3-0 5-08 15:48: 43 Yes 10mg Take 1 tablet by mouth in the morning and 1 tablet in the evening. [facility] rivaroxaban 15 mg tablet 2022-0 5-08 15:48: 43 Yes 15mg Take 1 tablet by mouth in the morning. [facility] ASPIRIN ORAL 2023-0 5-08 15:48: 43 Yes 81mg Take 81 mg by mouth in the morning. tablet [facility] busPIRone 10 mg tablet 3-0 5-08 15:48: 43 Yes 10mg Take 1 tablet by mouth in the morning and 1 tablet in the evening. [facility] rivaroxaban 15 mg tablet 3-0 5-08 15:48: 43 Yes 15mg Take 1 tablet by mouth in the morning. [facility] ASPIRIN ORAL 2023-0 5-08 15:48: 43 Yes 81mg Take 81 mg by mouth in the morning. tablet [facility] busPIRone 10 mg tablet 2023-0 5-08 15:48: 43 Yes 10mg Take 1 tablet by mouth in the morning and 1 tablet in the evening. [facility] rivaroxaban 15 mg tablet 2023-0 5-08 15:48: 43 Yes 15mg Take 1 tablet by mouth in the morning. [facility] ASPIRIN ORAL 2023-0 5-08 15:48: 43 Yes 81mg Take 81 mg by mouth in the morning. tablet [facility] busPIRone 10 mg tablet 2023-0 5-08 15:48: 43 Yes 10mg Take 1 tablet by mouth in the morning and 1 tablet in the evening. [facility] rivaroxaban 15 mg tablet 2023-0 5-08 15:48: 43 Yes 15mg Take 1 tablet by mouth in the morning. [facility] ASPIRIN ORAL 2023-0 5-08 15:48: 43 Yes 81mg Take 81 mg by mouth in the morning. tablet [facility] busPIRone 10 mg tablet 3-0 5-08 15:48: 43 Yes 10mg Take 1 tablet by mouth in the morning and 1 tablet in the evening. [facility] rivaroxaban 15 mg tablet 3-0 5-08 15:48: 43 Yes 15mg Take 1 tablet by mouth in the morning. [facility] ASPIRIN ORAL 2023-0 5-08 15:48: 43 Yes 81mg Take 81 mg by mouth in the morning. tablet [facility] busPIRone 10 mg tablet 3-0 5-08 15:48: 43 Yes 10mg Take 1 tablet by mouth in the morning and 1 tablet in the evening. [facility] rivaroxaban 15 mg tablet 3-0 5-08 15:48: 43 Yes 15mg Take 1 tablet by mouth in the morning. [facility] ASPIRIN ORAL 2023-0 5-08 15:48: 43 Yes 81mg Take 81 mg by mouth in the morning. tablet [facility] busPIRone 10 mg tablet 2023-0 5-08 15:48: 43 Yes 10mg Take 1 tablet by mouth in the morning and 1 tablet in the evening. [facility] rivaroxaban 15 mg tablet 2023-0 5-08 15:48: 43 Yes 15mg Take 1 tablet by mouth in the morning. [facility] ASPIRIN ORAL 2023-0 5-08 15:48: 43 Yes 81mg Take 81 mg by mouth in the morning. tablet [facility] busPIRone 10 mg tablet 01-24 15:48: 43 Yes 10mg Take 1 tablet by mouth in the morning and 1 tablet in the evening. [facility] rivaroxaban 15 mg tablet 01-24 15:48: 43 Yes 15mg Take 1 tablet by mouth in the morning. [facility] ASPIRIN ORAL 01-24 15:48: 43 Yes 81mg Take 81 mg by mouth in the morning. tablet [facility] busPIRone 10 mg tablet 01-24 15:48: 43 Yes 10mg Take 1 tablet by mouth in the morning and 1 tablet in the evening. [facility] rivaroxaban 15 mg tablet 01-24 15:48: 43 Yes 15mg Take 1 tablet by mouth in the morning. [facility] ASPIRIN ORAL 01-24 15:48: 43 Yes 81mg Take 81 mg by mouth in the morning. tablet [facility] levalbutero l (XOPENEX) nebulizer solution 1.25 mg 01-23 00:15: 00 01-22 23:35 :00 No 1.25mg 1.25 mg, Inhalation , ONCE, 1 dose, On 01/22/23 at 1915, Routine [facility] ipratropium (ATROVENT) 0.02 % nebulizer solution 0.5 mg 01-22 23:30: 00 01-22 23:36 :00 No .5mg 0.5 mg, Inhalation , ONCE, 1 dose, On 01/22/23 at 1830, MICHAEL [facility] diltiazem (CARDIZEM) tablet 30 mg 01-21 23:00: 00 Yes 30mg 30 mg, Oral, Q6H, First dose on Tue01/21/23 at 1800, Until Discontinu ed, Routine [facility] methylpredn isolone sod succ (SOLU-MEDRO L) injection 125 mg 01-21 23:00: 00 Yes 125mg 125 mg, Intravenou s, Q6H, First dose on Tue01/21/23 at 1800, Until Discontinu ed, Routine [facility] ipratropium -albuteroL (DUONEB) 0.5 mg-3 mg(2.5 mg base)/3 mL nebulizer solution 3 mL 01-21 20:45: 00 01-21 19:54 :00 No 3mL 3 mL, Inhalation , ONCE, 1 dose, On Tue01/21/23 at 1545, Routine [facility] diltiazem (CARDIZEM IV) injection 15 mg 01-21 19:45: 00 01-21 20:06 :00 No 15mg 15 mg, IV Push, ONCE, 1 dose, On Tue01/21/23 at 1445, STAT
Fa culty member approving Restricted medication : LOUIS HONG [facility] NaCl 0.9% (NS) bolus infusion 1,000 mL 01-21 19:45: 00 01-21 22:17 :00 No 1000mL at 999 mL/hr, 1,000 mL, IV Infusion, ONCE, 1 dose, On Tue01/21/23 at 1445, STAT [facility] predniSONE 20 mg tablet 01-20 00:00: 00 01-25 04:59 :00 No [id number] 40mg Take 2 tablets by mouth in the morning for 4 days. [facility] predniSONE 20 mg tablet 01-20 00:00: 00 01-25 04:59 :00 No [id number] 40mg Take 2 tablets by mouth in the morning for 4 days. [facility] predniSONE 20 mg tablet 01-20 00:00: 00 01-25 04:59 :00 No [id number] 40mg Take 2 tablets by mouth in the morning for 4 days. [facility] predniSONE 20 mg tablet 01-20 00:00: 00 01-25 04:59 :00 No [id number] 40mg Take 2 tablets by mouth in the morning for 4 days. [facility] predniSONE 20 mg tablet 01-20 00:00: 00 01-25 04:59 :00 No [id number] 40mg Take 2 tablets by mouth in the morning for 4 days. [facility] predniSONE 20 mg tablet 01-20 00:00: 00 01-25 04:59 :00 No [id number] 40mg Take 2 tablets by mouth in the morning for 4 days. [facility] predniSONE 20 mg tablet 01-20 00:00: 00 01-25 04:59 :00 No [id number] 40mg Take 2 tablets by mouth in the morning for 4 days. [facility] enoxaparin (LOVENOX) injection 40 mg 01-19 22:00: 00 Yes 40mg 40 mg, Subcutaneo us, DAILY, First dose on Tue01/19/23 at 1700, Until Discontinu ed, Routine [facility] levalbutero l (XOPENEX) nebulizer solution 1.25 mg 01-19 21:00: 00 Yes 1.25mg 1.25 mg, Inhalation , QID, First dose (after last modificati on) on Tue01/19/23 at 1600, Until Discontinu ed, [facility] ip[facility] (ATROVENT) 0.02 % nebulizer solution 0.5 mg 01-19 21:00: 00 Yes .5mg 0.5 mg, Inhalation , QID, First dose (after last modificati on) on Tue01/19/23 at 1600, Until Discontinu ed, Routine [facility] busPIRone 10 mg tablet 01-19 19:49: 16 Yes 10mg Take 1 tablet by mouth in the morning and 1 tablet in the evening. [facility] rivaroxaban 15 mg tablet 01-19 19:49: 16 Yes 15mg Take 1 tablet by mouth in the morning. [facility] ASPIRIN ORAL 01-19 19:49: 16 Yes 81mg Take 81 mg by mouth in the morning. tablet [facility] busPIRone 10 mg tablet 2022-0 - 19:49: 16 Yes 10mg Take 1 tablet by mouth in the morning and 1 tablet in the evening. [facility] rivaroxaban 15 mg tablet 0 01-19 19:49: 16 Yes 15mg Take 1 tablet by mouth in the morning. [facility] ASPIRIN ORAL 2022-0 01-19 19:49: 16 Yes 81mg Take 81 mg by mouth in the morning. tablet [facility] busPIRone 10 mg tablet 0 01-19 19:49: 16 Yes 10mg Take 1 tablet by mouth in the morning and 1 tablet in the evening. [facility] rivaroxaban 15 mg tablet 0 01-19 19:49: 16 Yes 15mg Take 1 tablet by mouth in the morning. [facility] ASPIRIN ORAL 2022-0 01-19 19:49: 16 Yes 81mg Take 81 mg by mouth in the morning. tablet [facility] busPIRone 10 mg tablet 0 01-19 19:49: 16 Yes 10mg Take 1 tablet by mouth in the morning and 1 tablet in the evening. [facility] rivaroxaban 15 mg tablet 0 01-19 19:49: 16 Yes 15mg Take 1 tablet by mouth in the morning. [facility] ASPIRIN ORAL 2022-0 01-19 19:49: 16 Yes 81mg Take 81 mg by mouth in the morning. tablet [facility] busPIRone 10 mg tablet 2022-0 01-19 19:49: 16 Yes 10mg Take 1 tablet by mouth in the morning and 1 tablet in the evening. [facility] rivaroxaban 15 mg tablet 2022-0 01-19 19:49: 16 Yes 15mg Take 1 tablet by mouth in the morning. [facility] ASPIRIN ORAL 2022-0 - 19:49: 16 Yes 81mg Take 81 mg by mouth in the morning. tablet [facility] busPIRone 10 mg tablet 2022-0 01-19 19:49: 16 Yes 10mg Take 1 tablet by mouth in the morning and 1 tablet in the evening. [facility] rivaroxaban 15 mg tablet 01-19 19:49: 16 Yes 15mg Take 1 tablet by mouth in the morning. [facility] ASPIRIN ORAL 01-19 19:49: 16 Yes 81mg Take 81 mg by mouth in the morning. tablet [facility] benazepriL 10 mg tablet 01-19 17:28: 05 01-19 00:00 :00 No 10mg Take 1 tablet by mouth in the morning. [facility] potassium chloride (KCL-20 ORAL) 01-19 17:28: 01-19 00:00 :00 No 1{tbl} Take 1 tablet by mouth in the morning and 1 tablet in the evening. [facility] aspirin chewable tablet 81 mg 01-19 14:00: 00 Yes 81mg 81 mg, Oral, DAILY, First dose on Tue01/19/23 at 0900, Until Discontinu ed [facility] predniSONE (DELTASONE) tablet 40 mg 01-19 14:00: 00 01-24 13:59 :00 No 40mg 40 mg, Oral, DAILY, 5 doses, First dose on Tue01/19/23 at 0900, Last dose on Tue01/23/23 at 0900, Routine [facility] busPIRone (BUSPAR) tablet 10 mg 01-19 13:00: 00 Yes 10mg 10 mg, Oral, BID, First dose on Tue01/19/23 at 0800, Until Discontinu ed, Routine [facility] ipratropium (ATROVENT) 0.02 % nebulizer solution 0.5 mg 01-19 13:00: 00 01-19 19:13 :37 No .5mg 0.5 mg, Inhalation , TID, First dose (after last modificati on) on Tue01/19/23 at 0800, Until Discontinu ed, Routine [facility] levalbutero l (XOPENEX) nebulizer solution 1.25 mg 01-19 13:00: 00 01-19 19:13 :37 No 1.25mg 1.25 mg, Inhalation , TID, First dose on Tue01/19/23 at 0800, Until Discontinu ed, Routine [facility] sodium polystyrene sulfonate (KAYEXALATE ) 15 gram/60 mL suspension 15 g 01-19 13:00: 00 01-19 13:22 :00 No 15g 15 g, Oral, ONCE, 1 dose, On Tue01/19/23 at 0800, Routine [facility] ipratropium (ATROVENT) 0.02 % nebulizer solution 0.5 mg 01-19 09:00: 00 01-19 12:09 :19 No .5mg 0.5 mg, Inhalation , Q4H, First dose on Tue01/19/23 at 0400, Until Discontinu ed, Routine [facility] levoFLOXaci n (LEVAQUIN) tablet 500 mg 01-19 08:15: 00 01-24 08:14 :00 No 500mg 500 mg, Oral, Q24H ABX, 5 doses, First dose on Tue01/19/23 at 0315, Last dose on Tue01/23/23 at 0315, MICHAEL
Re ason for Anti-Infec tive: Empiric Therapy for Suspected Infection< br>Empiric Therapy Site: Respirator y
Durat ion of [facility]: [address] [facility] guaiFENesin 100 mg/5 mL solution 200 mg 01-19 08:04: 52 Yes 200mg 200 mg, Oral, Q6HPRN, Starting on Tue01/19/23 at 0304, Until Discontinu ed, Routine, Cough [facility] ondansetron (ZOFRAN (PF)) injection 4 mg 01-19 08:03: 53 Yes 4mg 4 mg, Slow IV Push, Q6HPRN, Starting on Tue01/19/23 at 0303, Until Discontinu ed, Routine, Nausea and Vomiting (N/V) [facility] morpHINE (2 mg/mL) injection 2 mg 01-19 08:03: 43 01-20 08:02 :43 No 2mg 2 mg, Slow IV Push, Q4HPRN, Starting on Tue01/19/23 at 0303, Until Elizabeth 01/20/23 at 0302, Routine, Pain (scale 7-10) [facility] HYDROcodone -acetaminop hen (NORCO 5) 5-325 mg tablet 1 tablet 01-19 08:03: 39 01-21 08:02 :39 No 1{tbl} 1 tablet, Oral, Q6HPRN, Starting on Tue01/19/23 at 0303, Until Tue01/21/23 at 0302, Routine, Pain (scale 4-6) [facility] acetaminoph en (TYLENOL) tablet 650 mg 01-19 08:03: 35 Yes 650mg 650 mg, Oral, Q6HPRN, Starting on Tue01/19/23 at 030, Until Discontinu ed, Routine, Pain (scale 1-3) [facility] levalbutero l (XOPENEX) nebulizer solution 1.25 mg 01-19 07:30: 00 01-19 07:08 :00 No 1.25mg 1.25 mg, Inhalation , ONCE, 1 dose, On Tue01/19/23 at 0230, Routine [facility] dexamethaso ne sod phos PF injection 10 mg 01-19 06:58: 00 01-19 07:06 :00 No 10mg 10 mg, Oral, ONCE, 1 dose, On Tue01/19/23 at 0200, 1 mL [facility] ipratropium (ATROVENT) 0.02 % nebulizer solution 0.5 mg 01-19 06:45: 00 01-19 07:09 :00 No .5mg 0.5 mg, Inhalation , ONCE, 1 dose, On Tue01/19/23 at 0145, MICHAEL [facility] ipratropium 0.02 % nebulizer solution 01-19 00:00: 00 Yes [id number] .5mg Inhale 2.5 mL every 6 (six) hours as needed for Wheezing, Shortness of Breath, Bronchospa sm or Chest tightness. [facility] guaiFENesin 100 mg/5 mL solution 01-19 00:00: 00 Yes [id number] 200mg Take 10 mL by mouth every 6 (six) hours as needed for Cough. [facility] ipratropium 0.02 % nebulizer solution 01-19 00:00: 00 Yes [id number] .5mg Inhale 2.5 mL every 6 (six) hours as needed for Wheezing, Shortness of Breath, Bronchospa sm or Chest tightness. [facility] guaiFENesin 100 mg/5 mL solution 01-19 00:00: 00 Yes [id number] 200mg Take 10 mL by mouth every 6 (six) hours as needed for Cough. [facility] ipratropium 0.02 % nebulizer solution 01-19 00:00: 00 Yes [id number] .5mg Inhale 2.5 mL every 6 (six) hours as needed for Wheezing, Shortness of Breath, Bronchospa sm or Chest tightness. [facility] guaiFENesin 100 mg/5 mL solution 01-19 00:00: 00 Yes [id number] 200mg Take 10 mL by mouth every 6 (six) hours as needed for Cough. [facility] ipratropium 0.02 % nebulizer solution 01-19 00:00: 00 Yes [id number] .5mg Inhale 2.5 mL every 6 (six) hours as needed for Wheezing, Shortness of Breath, Bronchospa sm or Chest tightness. [facility] guaiFENesin 100 mg/5 mL solution 01-19 00:00: 00 Yes [id number] 200mg Take 10 mL by mouth every 6 (six) hours as needed for Cough. [facility] ipratropium 0.02 % nebulizer solution 01-19 00:00: 00 Yes [id number] .5mg Inhale 2.5 mL every 6 (six) hours as needed for Wheezing, Shortness of Breath, Bronchospa sm or Chest tightness. [facility] guaiFENesin 100 mg/5 mL solution 01-19 00:00: 00 Yes [id number] 200mg Take 10 mL by mouth every 6 (six) hours as needed for Cough. [facility] ipratropium 0.02 % nebulizer solution 01-19 00:00: 00 Yes [id number] .5mg Inhale 2.5 mL every 6 (six) hours as needed for Wheezing, Shortness of Breath, Bronchospa sm or Chest tightness. [facility] guaiFENesin 100 mg/5 mL solution 01-19 00:00: 00 Yes [id number] 200mg Take 10 mL by mouth every 6 (six) hours as needed for Cough. [facility] ipratropium 0.02 % nebulizer solution 01-19 00:00: 00 Yes [id number] .5mg Inhale 2.5 mL every 6 (six) hours as needed for Wheezing, Shortness of Breath, Bronchospa sm or Chest tightness. [facility] guaiFENesin 100 mg/5 mL solution 01-19 00:00: 00 Yes [id number] 200mg Take 10 mL by mouth every 6 (six) hours as needed for Cough. [facility] ipratropium 0.02 % nebulizer solution 01-19 00:00: 00 Yes [id number] .5mg Inhale 2.5 mL every 6 (six) hours as needed for Wheezing, Shortness of Breath, Bronchospa sm or Chest tightness. [facility] guaiFENesin 100 mg/5 mL solution 01-19 00:00: 00 Yes [id number] 200mg Take 10 mL by mouth every 6 (six) hours as needed for Cough. [facility] guaiFENesin 100 mg/5 mL solution 0 01-19 00:00: 00 Yes [id number] 200mg Take 10 mL by mouth every 6 (six) hours as needed for Cough. [facility] guaiFENesin 100 mg/5 mL solution 2023-0 5-03 00:00: 00 Yes [id number] 200mg Take 10 mL by mouth every 6 (six) hours as needed for Cough. [facility] 100 mg/5 mL solution 2023-0 5-03 00:00: 00 Yes [id number] 200mg Take 10 mL by mouth every 6 (six) hours as needed for Cough. [facility] guai[facility]in 100 mg/5 mL solution 2023-0 5-03 00:00: 00 Yes [id number] 200mg Take 10 mL by mouth every 6 (six) hours as needed for Cough. [facility] guaiFENesin 100 mg/5 mL solution 3-0 5-03 00:00: 00 Yes [id number] 200mg Take 10 mL by mouth every 6 (six) hours as needed for Cough. [facility] guaiFENesin 100 mg/5 mL solution 3-0 5-03 00:00: 00 Yes [id number] 200mg Take 10 mL by mouth every 6 (six) hours as needed for Cough. [facility] guaiFENesin 100 mg/5 mL solution 3-0 5-03 00:00: 00 Yes [id number] 200mg Take 10 mL by mouth every 6 (six) hours as needed for Cough. [facility] guaiFENesin 100 mg/5 mL solution 3-0 5-03 00:00: 00 Yes [id number] 200mg Take 10 mL by mouth every 6 (six) hours as needed for Cough. [facility] guaiFENesin 100 mg/5 mL solution 3-0 5-03 00:00: 00 Yes [id number] 200mg Take 10 mL by mouth every 6 (six) hours as needed for Cough. [facility] guaiFENesin 100 mg/5 mL solution 3-0 5-03 00:00: 00 Yes [id number] 200mg Take 10 mL by mouth every 6 (six) hours as needed for Cough. [facility] guaiFENesin 100 mg/5 mL solution 2023-0 5-03 00:00: 00 Yes [id number] 200mg Take 10 mL by mouth every 6 (six) hours as needed for Cough. [facility] guaiFENesin 100 mg/5 mL solution 01-19 00:00: 00 Yes [id number] 200mg Take 10 mL by mouth every 6 (six) hours as needed for Cough. [facility] guaiFENesin 100 mg/5 mL solution 01-19 00:00: 00 Yes [id number] 200mg Take 10 mL by mouth every 6 (six) hours as needed for Cough. [facility] ipratropium 0.02 % nebulizer solution 01-19 00:00: 00 Yes [id number] .5mg Inhale 2.5 mL every 6 (six) hours as needed for Wheezing, Shortness of Breath, Bronchospa sm or Chest tightness. [facility] guaiFENesin 100 mg/5 mL solution 01-19 00:00: 00 Yes [id number] 200mg Take 10 mL by mouth every 6 (six) hours as needed for Cough. [facility] ipratropium 0.02 % nebulizer solution 01-19 00:00: 00 Yes [id number] .5mg Inhale 2.5 mL every 6 (six) hours as needed for Wheezing, Shortness of Breath, Bronchospa sm or Chest tightness. [facility] guaiFENesin 100 mg/5 mL solution 01-19 00:00: 00 Yes [id number] 200mg Take 10 mL by mouth every 6 (six) hours as needed for Cough. [facility] ipratropium 0.02 % nebulizer solution 01-19 00:00: 00 Yes [id number] .5mg Inhale 2.5 mL every 6 (six) hours as needed for Wheezing, Shortness of Breath, Bronchospa sm or Chest tightness. [facility] guaiFENesin 100 mg/5 mL solution 01-19 00:00: 00 Yes [id number] 200mg Take 10 mL by mouth every 6 (six) hours as needed for Cough. [facility] ipratropium 0.02 % nebulizer solution 01-19 00:00: 00 Yes [id number] .5mg Inhale 2.5 mL every 6 (six) hours as needed for Wheezing, Shortness of Breath, Bronchospa sm or Chest tightness. [facility] guaiFENesin 100 mg/5 mL solution 01-19 00:00: 00 Yes [id number] 200mg Take 10 mL by mouth every 6 (six) hours as needed for Cough. [facility] ipratropium 0.02 % nebulizer solution 01-19 00:00: 00 Yes [id number] .5mg Inhale 2.5 mL every 6 (six) hours as needed for Wheezing, Shortness of Breath, Bronchospa sm or Chest tightness. [facility] guaiFENesin 100 mg/5 mL solution 01-19 00:00: 00 Yes [id number] 200mg Take 10 mL by mouth every 6 (six) hours as needed for Cough. [facility] ipratropium 0.02 % nebulizer solution 01-19 00:00: 00 Yes [id number] .5mg Inhale 2.5 mL every 6 (six) hours as needed for Wheezing, Shortness of Breath, Bronchospa sm or Chest tightness. [facility] guaiFENesin 100 mg/5 mL solution 01-19 00:00: 00 Yes [id number] 200mg Take 10 mL by mouth every 6 (six) hours as needed for Cough. [facility] ipratropium 0.02 % nebulizer solution 01-19 00:00: 00 Yes [id number] .5mg Inhale 2.5 mL every 6 (six) hours as needed for Wheezing, Shortness of Breath, Bronchospa sm or Chest tightness. [facility] guaiFENesin 100 mg/5 mL solution 01-19 00:00: 00 Yes [id number] 200mg Take 10 mL by mouth every 6 (six) hours as needed for Cough. [facility] ipratropium 0.02 % nebulizer solution 01-19 00:00: 00 Yes [id number] .5mg Inhale 2.5 mL every 6 (six) hours as needed for Wheezing, Shortness of Breath, Bronchospa sm or Chest tightness. [facility] guaiFENesin 100 mg/5 mL solution 01-19 00:00: 00 Yes [id number] 200mg Take 10 mL by mouth every 6 (six) hours as needed for Cough. [facility] ipratropium 0.02 % nebulizer solution 01-19 00:00: 00 Yes [id number] .5mg Inhale 2.5 mL every 6 (six) hours as needed for Wheezing, Shortness of Breath, Bronchospa sm or Chest tightness. [facility] guaiFENesin 100 mg/5 mL solution 01-19 00:00: 00 Yes [id number] 200mg Take 10 mL by mouth every 6 (six) hours as needed for Cough. [facility] ipratropium 0.02 % nebulizer solution 01-19 00:00: 00 Yes [id number] .5mg Inhale 2.5 mL every 6 (six) hours as needed for Wheezing, Shortness of Breath, Bronchospa sm or Chest tightness. [facility] guaiFENesin 100 mg/5 mL solution 01-19 00:00: 00 Yes [id number] 200mg Take 10 mL by mouth every 6 (six) hours as needed for Cough. [facility] ipratropium 0.02 % nebulizer solution 01-19 00:00: 00 Yes [id number] .5mg Inhale 2.5 mL every 6 (six) hours as needed for Wheezing, Shortness of Breath, Bronchospa sm or Chest tightness. [facility] guaiFENesin 100 mg/5 mL solution 01-19 00:00: 00 Yes [id number] 200mg Take 10 mL by mouth every 6 (six) hours as needed for Cough. [facility] ipratropium 0.02 % nebulizer solution 01-19 00:00: 00 02-17 00:00 :00 No [id number] .5mg Inhale 2.5 mL every 6 (six) hours as needed for Wheezing, Shortness of Breath, Bronchospa sm or Chest tightness. [facility] levoFLOXaci n 500 mg tablet 01-19 00:00: 00 01-24 04:59 :00 No [id number] 500mg Take 1 tablet by mouth in the morning for 4 days. [facility] levoFLOXaci n 500 mg tablet 01-19 00:00: 00 01-24 04:59 :00 No [id number] 500mg Take 1 tablet by mouth in the morning for 4 days. [facility] levoFLOXaci n 500 mg tablet 01-19 00:00: 00 01-24 04:59 :00 No [id number] 500mg Take 1 tablet by mouth in the morning for 4 days. [facility] levoFLOXaci n 500 mg tablet 01-19 00:00: 00 01-24 04:59 :00 No [id number] 500mg Take 1 tablet by mouth in the morning for 4 days. [facility] levoFLOXaci n 500 mg tablet 01-19 00:00: 00 01-24 04:59 :00 No [id number] 500mg Take 1 tablet by mouth in the morning for 4 days. [facility] levoFLOXaci n 500 mg tablet 01-19 00:00: 00 01-24 04:59 :00 No [id number] 500mg Take 1 tablet by mouth in the morning for 4 days. [facility] levalbutero l (XOPENEX) nebulizer solution 1.25 mg 01-17 13:00: 00 01-17 11:56 :39 No 1.25mg 1.25 mg, Inhalation , TID, First dose on Tue01/17/23 at 0800, Until Discontinu ed, Routine [facility] methylpredn isolone sod succ (SOLU-MEDRO L) injection 125 mg 01-17 12:00: 00 01-17 11:11 :00 No 125mg 125 mg, Intravenou s, ONCE, 1 dose, On Tue01/17/23 at 0700, 2 mL [facility] ipratropium (ATROVENT) 0.02 % nebulizer solution 0.5 mg 01-17 11:45: 00 01-17 11:42 :00 No .5mg 0.5 mg, Inhalation , ONCE, 1 dose, On Tue01/17/23 at 0645, MICHAEL [facility] albuterol 90 mcg/actuati on inhaler 01-17 00:00: 00 Yes [id number] 2{puff} Inhale 2 Puffs every 4 (four) hours as needed for Wheezing or Shortness of Breath. [facility] albuterol 2.5 mg /3 mL (0.083 %) nebulizer solution 01-17 00:00: 00 Yes [id number] 2.5mg Inhale 3 mL every 4 (four) hours. May also nebulize one extra every 6 hours. [facility] predniSONE 50 mg tablet 01-17 00:00: 00 Yes [id number] 50mg Take 1 tablet by mouth in the morning. [facility] benzonatate 200 mg capsule 01-17 00:00: 00 Yes [id number] 200mg Take 1 capsule by mouth 3 (three) times daily as needed for Cough. [facility] ipratropium 0.02 % nebulizer solution 01-17 00:00: 00 Yes [id number] .5mg Inhale 2.5 mL every 6 (six) hours as needed for Wheezing, Shortness of Breath, Bronchospa sm or Chest tightness. [facility] albuterol 90 mcg/actuati on inhaler 01-17 00:00: 00 Yes [id number] 2{puff} Inhale 2 Puffs every 4 (four) hours as needed for Wheezing or Shortness of Breath. [facility] albuterol 2.5 mg /3 mL (0.083 %) nebulizer solution 01-17 00:00: 00 Yes [id number] 2.5mg Inhale 3 mL every 4 (four) hours. May also nebulize one extra every 6 hours. [facility] mg capsule 01-17 00:00: 00 Yes [id number] 200mg Take 1 capsule by mouth 3 (three) times daily as needed for Cough. [facility] albuterol 90 mcg/actuati on inhaler 01-17 00:00: 00 Yes [id number] 2{puff} Inhale 2 Puffs every 4 (four) hours as needed for Wheezing or Shortness of Breath. [facility] albuterol 2.5 mg /3 mL (0.083 %) nebulizer solution 01-17 00:00: 00 Yes [id number] 2.5mg Inhale 3 mL every 4 (four) hours. May also nebulize one extra every 6 hours. [facility] benzon[facility] 200 mg capsule 01-17 00:00: 00 Yes [id number] 200mg Take 1 capsule by mouth 3 (three) times daily as needed for Cough. [facility] mcg/actuati on inhaler 01-17 00:00: 00 Yes [id number] 2{puff} Inhale 2 Puffs every 4 (four) hours as needed for Wheezing or Shortness of Breath. [facility] albuterol 2.5 mg /3 mL (0.083 %) nebulizer solution 01-17 00:00: 00 Yes [id number] 2.5mg Inhale 3 mL every 4 (four) hours. May also nebulize one extra every 6 hours. [facility] benzonatate 200 mg capsule 01-17 00:00: 00 Yes [id number] 200mg Take 1 capsule by mouth 3 (three) times daily as needed for Cough. [facility] al[facility]erol 90 mcg/actuati on inhaler 01-17 00:00: 00 Yes [id number] 2{puff} Inhale 2 Puffs every 4 (four) hours as needed for Wheezing or Shortness of Breath. [facility] al[facility]erol 2.5 mg /3 mL (0.083 %) nebulizer solution 01-17 00:00: 00 Yes [id number] 2.5mg Inhale 3 mL every 4 (four) hours. May also nebulize one extra every 6 hours. [facility] benzonatate 200 mg capsule 01-17 00:00: 00 Yes [id number] 200mg Take 1 capsule by mouth 3 (three) times daily as needed for Cough. [facility] albuterol 90 mcg/actuati on inhaler 01-17 00:00: 00 Yes [id number] 2{puff} Inhale 2 Puffs every 4 (four) hours as needed for Wheezing or Shortness of Breath. [facility] albuterol 2.5 mg /3 mL (0.083 %) nebulizer solution 01-17 00:00: 00 Yes [id number] 2.5mg Inhale 3 mL every 4 (four) hours. May also nebulize one extra every 6 hours. [facility] benzonatate 200 mg capsule 01-17 00:00: 00 Yes [id number] 200mg Take 1 capsule by mouth 3 (three) times daily as needed for Cough. [facility] albuterol 90 mcg/actuati on inhaler 01-17 00:00: 00 Yes [id number] 2{puff} Inhale 2 Puffs every 4 (four) hours as needed for Wheezing or Shortness of Breath. [facility] albuterol 2.5 mg /3 mL (0.083 %) nebulizer solution 01-17 00:00: 00 Yes [id number] 2.5mg Inhale 3 mL every 4 (four) hours. May also nebulize one extra every 6 hours. [facility] benzonatate 200 mg capsule 01-17 00:00: 00 Yes [id number] 200mg Take 1 capsule by mouth 3 (three) times daily as needed for Cough. [facility] albuterol 90 mcg/actuati on inhaler 01-17 00:00: 00 Yes [id number] 2{puff} Inhale 2 Puffs every 4 (four) hours as needed for Wheezing or Shortness of Breath. [facility] albuterol 2.5 mg /3 mL (0.083 %) nebulizer solution 01-17 00:00: 00 Yes [id number] 2.5mg Inhale 3 mL every 4 (four) hours. May also nebulize one extra every 6 hours. [facility] benzon[facility] 200 mg capsule 01-17 00:00: 00 Yes [id number] 200mg Take 1 capsule by mouth 3 (three) times daily as needed for Cough. [facility] al[facility]erol 90 mcg/actuati on inhaler 01-17 00:00: 00 Yes [id number] 2{puff} Inhale 2 Puffs every 4 (four) hours as needed for Wheezing or Shortness of Breath. [facility] albuterol 2.5 mg /3 mL (0.083 %) nebulizer solution 01-17 00:00: 00 Yes [id number] 2.5mg Inhale 3 mL every 4 (four) hours. May also nebulize one extra every 6 hours. [facility] benzonatate 200 mg capsule 01-17 00:00: 00 Yes [id number] 200mg Take 1 capsule by mouth 3 (three) times daily as needed for Cough. [facility] albuterol 90 mcg/actuati on inhaler 01-17 00:00: 00 Yes [id number] 2{puff} Inhale 2 Puffs every 4 (four) hours as needed for Wheezing or Shortness of Breath. [facility] albuterol 2.5 mg /3 mL (0.083 %) nebulizer solution 01-17 00:00: 00 Yes [id number] 2.5mg Inhale 3 mL every 4 (four) hours. May also nebulize one extra every 6 hours. [facility] benzon[facility]ate 200 mg capsule 01-17 00:00: 00 Yes [id number] 200mg Take 1 capsule by mouth 3 (three) times daily as needed for Cough. [facility] albuterol 90 mcg/actuati on inhaler 01-17 00:00: 00 Yes [id number] 2{puff} Inhale 2 Puffs every 4 (four) hours as needed for Wheezing or Shortness of Breath. [facility] albuterol 2.5 mg /3 mL (0.083 %) nebulizer solution 01-17 00:00: 00 Yes [id number] 2.5mg Inhale 3 mL every 4 (four) hours. May also nebulize one extra every 6 hours. [facility] benzon[facility]ate 200 mg capsule 01-17 00:00: 00 Yes [id number] 200mg Take 1 capsule by mouth 3 (three) times daily as needed for Cough. [facility] albuterol 90 mcg/actuati on inhaler 01-17 00:00: 00 Yes [id number] 2{puff} Inhale 2 Puffs every 4 (four) hours as needed for Wheezing or Shortness of Breath. [facility] albuterol 2.5 mg /3 mL (0.083 %) nebulizer solution 01-17 00:00: 00 Yes [id number] 2.5mg Inhale 3 mL every 4 (four) hours. May also nebulize one extra every 6 hours. [facility] benzonatate 200 mg capsule 01-17 00:00: 00 Yes [id number] 200mg Take 1 capsule by mouth 3 (three) times daily as needed for Cough. [facility] albuterol 90 mcg/actuati on inhaler 01-17 00:00: 00 Yes [id number] 2{puff} Inhale 2 Puffs every 4 (four) hours as needed for Wheezing or Shortness of Breath. [facility] albuterol 2.5 mg /3 mL (0.083 %) nebulizer solution 01-17 00:00: 00 Yes [id number] 2.5mg Inhale 3 mL every 4 (four) hours. May also nebulize one extra every 6 hours. [facility] benzon[facility]ate 200 mg capsule 01-17 00:00: 00 Yes [id number] 200mg Take 1 capsule by mouth 3 (three) times daily as needed for Cough. [facility] albuterol 90 mcg/actuati on inhaler 01-17 00:00: 00 Yes [id number] 2{puff} Inhale 2 Puffs every 4 (four) hours as needed for Wheezing or Shortness of Breath. [facility] albuterol 2.5 mg /3 mL (0.083 %) nebulizer solution 01-17 00:00: 00 Yes [id number] 2.5mg Inhale 3 mL every 4 (four) hours. May also nebulize one extra every 6 hours. [facility] benzonatate 200 mg capsule 01-17 00:00: 00 Yes [id number] 200mg Take 1 capsule by mouth 3 (three) times daily as needed for Cough. [facility] albuterol 90 mcg/actuati on inhaler 01-17 00:00: 00 Yes [id number] 2{puff} Inhale 2 Puffs every 4 (four) hours as needed for Wheezing or Shortness of Breath. [facility] albuterol 2.5 mg /3 mL (0.083 %) nebulizer solution 01-17 00:00: 00 Yes [id number] 2.5mg Inhale 3 mL every 4 (four) hours. May also nebulize one extra every 6 hours. [facility] benzonatate 200 mg capsule 01-17 00:00: 00 Yes [id number] 200mg Take 1 capsule by mouth 3 (three) times daily as needed for Cough. [facility] albuterol 90 mcg/actuati on inhaler 01-17 00:00: 00 Yes [id number] 2{puff} Inhale 2 Puffs every 4 (four) hours as needed for Wheezing or Shortness of Breath. [facility] albuterol 2.5 mg /3 mL (0.083 %) nebulizer solution 01-17 00:00: 00 Yes [id number] 2.5mg Inhale 3 mL every 4 (four) hours. May also nebulize one extra every 6 hours. [facility] benzonatate 200 mg capsule 01-17 00:00: 00 Yes [id number] 200mg Take 1 capsule by mouth 3 (three) times daily as needed for Cough. [facility] albuterol 90 mcg/actuati on inhaler 01-17 00:00: 00 Yes [id number] 2{puff} Inhale 2 Puffs every 4 (four) hours as needed for Wheezing or Shortness of Breath. [facility] albuterol 2.5 mg /3 mL (0.083 %) nebulizer solution 01-17 00:00: 00 Yes [id number] 2.5mg Inhale 3 mL every 4 (four) hours. May also nebulize one extra every 6 hours. [facility] benzon[facility]ate 200 mg capsule 01-17 00:00: 00 Yes [id number] 200mg Take 1 capsule by mouth 3 (three) times daily as needed for Cough. [facility] albuterol 2.5 mg /3 mL (0.083 %) nebulizer solution 01-17 00:00: 00 Yes [id number] 2.5mg Inhale 3 mL every 4 (four) hours. May also nebulize one extra every 6 hours. [facility] benzon[facility]ate 200 mg capsule 01-17 00:00: 00 Yes [id number] 200mg Take 1 capsule by mouth 3 (three) times daily as needed for Cough. [facility] albuterol 2.5 mg /3 mL (0.083 %) nebulizer solution 01-17 00:00: 00 Yes [id number] 2.5mg Inhale 3 mL every 4 (four) hours. May also nebulize one extra every 6 hours. [facility] benzon[facility]ate 200 mg capsule 01-17 00:00: 00 Yes [id number] 200mg Take 1 capsule by mouth 3 (three) times daily as needed for Cough. [facility] albuterol 2.5 mg /3 mL (0.083 %) nebulizer solution 01-17 00:00: 00 Yes [id number] 2.5mg Inhale 3 mL every 4 (four) hours. May also nebulize one extra every 6 hours. [facility] benzonatate 200 mg capsule 01-17 00:00: 00 Yes [id number] 200mg Take 1 capsule by mouth 3 (three) times daily as needed for Cough. [facility] albuterol 2.5 mg /3 mL (0.083 %) nebulizer solution 01-17 00:00: 00 Yes [id number] 2.5mg Inhale 3 mL every 4 (four) hours. May also nebulize one extra every 6 hours. [facility] albuterol 2.5 mg /3 mL (0.083 %) nebulizer solution 01-17 00:00: 00 Yes [id number] 2.5mg Inhale 3 mL every 4 (four) hours. May also nebulize one extra every 6 hours. [facility] albuterol 2.5 mg /3 mL (0.083 %) nebulizer solution 01-17 00:00: 00 Yes [id number] 2.5mg Inhale 3 mL every 4 (four) hours. May also nebulize one extra every 6 hours. [facility] albuterol 2.5 mg /3 mL (0.083 %) nebulizer solution 01-17 00:00: 00 Yes [id number] 2.5mg Inhale 3 mL every 4 (four) hours. May also nebulize one extra every 6 hours. [facility] albuterol 2.5 mg /3 mL (0.083 %) nebulizer solution 01-17 00:00: 00 Yes [id number] 2.5mg Inhale 3 mL every 4 (four) hours. May also nebulize one extra every 6 hours. [facility] albuterol 2.5 mg /3 mL (0.083 %) nebulizer solution 01-17 00:00: 00 Yes [id number] 2.5mg Inhale 3 mL every 4 (four) hours. May also nebulize one extra every 6 hours. [facility] albuterol 2.5 mg /3 mL (0.083 %) nebulizer solution 01-17 00:00: 00 03-03 00:00 :00 No [id number] 2.5mg Inhale 3 mL every 4 (four) hours. May also nebulize one extra every 6 hours. [facility] benzonatate 200 mg capsule 01-17 00:00: 00 02-17 00:00 :00 No [id number] 200mg Take 1 capsule by mouth 3 (three) times daily as needed for Cough. [facility] albuterol 90 mcg/actuati on inhaler 01-17 00:00: 00 02-04 00:00 :00 No [id number] 2{puff} Inhale 2 Puffs every 4 (four) hours as needed for Wheezing or Shortness of Breath. [facility] predniSONE 50 mg tablet 01-17 00:00: 00 01-19 00:00 :00 No [id number] 50mg Take 1 tablet by mouth in the morning. [facility] ipratropium 0.02 % nebulizer solution 01-17 00:00: 00 01-19 00:00 :00 No [id number] .5mg Inhale 2.5 mL every 6 (six) hours as needed for Wheezing, Shortness of Breath, Bronchospa sm or Chest tightness. [facility] potassium chloride (KCL-20 ORAL) 01-07 14:37: 58 Yes 1{tbl} Take 1 tablet by mouth in the morning and 1 tablet in the evening. [facility] potassium chloride (KCL-20 ORAL) 01-07 14:37: 58 Yes 1{tbl} Take 1 tablet by mouth in the morning and 1 tablet in the evening. [facility] potassium chloride (KCL-20 ORAL) 01-07 14:37: 58 Yes 1{tbl} Take 1 tablet by mouth in the morning and 1 tablet in the evening. [facility] potassium chloride (KCL-20 ORAL) 01-07 14:37: 58 Yes 1{tbl} Take 1 tablet by mouth in the morning and 1 tablet in the evening. [facility] busPIRone 10 mg tablet 3-0 01-07 14:36: 57 Yes 10mg Take 1 tablet by mouth in the morning and 1 tablet in the evening. [facility] rivaroxaban 15 mg tablet 2022-0 01-07 14:36: 57 Yes 15mg Take 1 tablet by mouth in the morning. [facility] ASPIRIN ORAL 3-0 01-07 14:36: 57 Yes 81mg Take 81 mg by mouth in the morning. tablet [facility] benazepriL 10 mg tablet 2022-0 01-07 14:36: 57 Yes 10mg Take 1 tablet by mouth in the morning. [facility] busPIRone 10 mg tablet 2022-0 01-07 14:36: 57 Yes 10mg Take 1 tablet by mouth in the morning and 1 tablet in the evening. [facility] rivaroxaban 15 mg tablet 2022-0 01-07 14:36: 57 Yes 15mg Take 1 tablet by mouth in the morning. [facility] ASPIRIN ORAL 2022-0 01-07 14:36: 57 Yes 81mg Take 81 mg by mouth in the morning. tablet [facility] benazepriL 10 mg tablet 2022-0 01-07 14:36: 57 Yes 10mg Take 1 tablet by mouth in the morning. [facility] busPIRone 10 mg tablet 2022-0 01-07 14:36: 57 Yes 10mg Take 1 tablet by mouth in the morning and 1 tablet in the evening. [facility] rivaroxaban 15 mg tablet 2022-0 01-07 14:36: 57 Yes 15mg Take 1 tablet by mouth in the morning. [facility] ASPIRIN ORAL 3-0 01-07 14:36: 57 Yes 81mg Take 81 mg by mouth in the morning. tablet [facility] benazepriL 10 mg tablet 3-0 01-07 14:36: 57 Yes 10mg Take 1 tablet by mouth in the morning. [facility] busPIRone 10 mg tablet 3-0 4-21 14:36: 57 Yes 10mg Take 1 tablet by mouth in the morning and 1 tablet in the evening. [facility] rivaroxaban 15 mg tablet 2022-0 01-07 14:36: 57 Yes 15mg Take 1 tablet by mouth in the morning. [facility] ASPIRIN ORAL 3-0 01-07 14:36: 57 Yes 81mg Take 81 mg by mouth in the morning. tablet [facility] benazepriL 10 mg tablet 2022-0 01-07 14:36: 57 Yes 10mg Take 1 tablet by mouth in the morning. [facility] donepeziL 5 mg tablet 2022-0 01-07 00:00: 00 Yes 5mg Take 1 tablet by mouth in the morning. [facility] memantine 5 mg tablet 2022-0 01-07 00:00: 00 Yes 5mg Take 1 tablet by mouth in the morning. [facility] donepeziL 5 mg tablet 3-0 21 00:00: 00 Yes 5mg Take 1 tablet by mouth in the morning. [facility] memantine 5 mg tablet 3-0 21 00:00: 00 Yes 5mg Take 1 tablet by mouth in the morning. [facility] donepeziL 5 mg tablet 3-0 21 00:00: 00 Yes 5mg Take 1 tablet by mouth in the morning. [facility] memantine 5 mg tablet 3-0 21 00:00: 00 Yes 5mg Take 1 tablet by mouth in the morning. [facility] donepeziL 5 mg tablet 3-0 21 00:00: 00 Yes 5mg Take 1 tablet by mouth in the morning. [facility] memantine 5 mg tablet 3-0 21 00:00: 00 Yes 5mg Take 1 tablet by mouth in the morning. [facility] donepeziL 5 mg tablet 3-0 21 00:00: 00 Yes 5mg Take 1 tablet by mouth in the morning. [facility] memantine 5 mg tablet 3-0 4-21 00:00: 00 Yes 5mg Take 1 tablet by mouth in the morning. [facility] donepeziL 5 mg tablet 2023-0 4-21 00:00: 00 Yes 5mg Take 1 tablet by mouth in the morning. [facility] memantine 5 mg tablet 2023-0 4-21 00:00: 00 Yes 5mg Take 1 tablet by mouth in the morning. [facility] donepeziL 5 mg tablet 2023-0 4-21 00:00: 00 Yes 5mg Take 1 tablet by mouth in the morning. [facility] memantine 5 mg tablet 2023-0 4-21 00:00: 00 Yes 5mg Take 1 tablet by mouth in the morning. [facility] donepeziL 5 mg tablet 3-0 4-21 00:00: 00 Yes 5mg Take 1 tablet by mouth in the morning. [facility] memantine 5 mg tablet 2023-0 4-21 00:00: 00 Yes 5mg Take 1 tablet by mouth in the morning. [facility] donepeziL 5 mg tablet 2023-0 4-21 00:00: 00 Yes 5mg Take 1 tablet by mouth in the morning. [facility] memantine 5 mg tablet 2023-0 4-21 00:00: 00 Yes 5mg Take 1 tablet by mouth in the morning. [facility] donepeziL 5 mg tablet 2023-0 4-21 00:00: 00 Yes 5mg Take 1 tablet by mouth in the morning. [facility] memantine 5 mg tablet 2023-0 4-21 00:00: 00 Yes 5mg Take 1 tablet by mouth in the morning. [facility] donepeziL 5 mg tablet 2023-0 4-21 00:00: 00 Yes 5mg Take 1 tablet by mouth in the morning. [facility] memantine 5 mg tablet 2023-0 4-21 00:00: 00 Yes 5mg Take 1 tablet by mouth in the morning. [facility] donepeziL 5 mg tablet 2023-0 4-21 00:00: 00 Yes 5mg Take 1 tablet by mouth in the morning. [facility] memantine 5 mg tablet 2023-0 4-21 00:00: 00 Yes 5mg Take 1 tablet by mouth in the morning. [facility] donepeziL 5 mg tablet 2023-0 4-21 00:00: 00 Yes 5mg Take 1 tablet by mouth in the morning. [facility] memantine 5 mg tablet 2023-0 4-21 00:00: 00 Yes 5mg Take 1 tablet by mouth in the morning. [facility] donepeziL 5 mg tablet 2023-0 4-21 00:00: 00 Yes 5mg Take 1 tablet by mouth in the morning. [facility] memantine 5 mg tablet 3-0 4-21 00:00: 00 Yes 5mg Take 1 tablet by mouth in the morning. [facility] donepeziL 5 mg tablet 3-0 4-21 00:00: 00 Yes 5mg Take 1 tablet by mouth in the morning. [facility] memantine 5 mg tablet 2023-0 4-21 00:00: 00 Yes 5mg Take 1 tablet by mouth in the morning. [facility] donepeziL 5 mg tablet 2023-0 4-21 00:00: 00 Yes 5mg Take 1 tablet by mouth in the morning. [facility] memantine 5 mg tablet 3-0 4-21 00:00: 00 Yes 5mg Take 1 tablet by mouth in the morning. [facility] donepeziL 5 mg tablet 3-0 4-21 00:00: 00 Yes 5mg Take 1 tablet by mouth in the morning. [facility] memantine 5 mg tablet 2023-0 4-21 00:00: 00 Yes 5mg Take 1 tablet by mouth in the morning. [facility] donepeziL 5 mg tablet 2023-0 4-21 00:00: 00 Yes 5mg Take 1 tablet by mouth in the morning. [facility] memantine 5 mg tablet 2023-0 4-21 00:00: 00 Yes 5mg Take 1 tablet by mouth in the morning. [facility] donepeziL 5 mg tablet 2023-0 4-21 00:00: 00 Yes 5mg Take 1 tablet by mouth in the morning. [facility] memantine 5 mg tablet 2023-0 4-21 00:00: 00 Yes 5mg Take 1 tablet by mouth in the morning. [facility] donepeziL 5 mg tablet 2023-0 4-21 00:00: 00 Yes 5mg Take 1 tablet by mouth in the morning. [facility] memantine 5 mg tablet 2023-0 4-21 00:00: 00 Yes 5mg Take 1 tablet by mouth in the morning. [facility] donepeziL 5 mg tablet 2023-0 4-21 00:00: 00 Yes 5mg Take 1 tablet by mouth in the morning. [facility] memantine 5 mg tablet 3-0 4-21 00:00: 00 Yes 5mg Take 1 tablet by mouth in the morning. [facility] donepeziL 5 mg tablet 2023-0 4-21 00:00: 00 Yes 5mg Take 1 tablet by mouth in the morning. [facility] memantine 5 mg tablet 2023-0 4-21 00:00: 00 Yes 5mg Take 1 tablet by mouth in the morning. [facility] donepeziL 5 mg tablet 2023-0 4-21 00:00: 00 Yes 5mg Take 1 tablet by mouth in the morning. [facility] memantine 5 mg tablet 3-0 4-21 00:00: 00 Yes 5mg Take 1 tablet by mouth in the morning. [facility] donepeziL 5 mg tablet 2023-0 4-21 00:00: 00 Yes 5mg Take 1 tablet by mouth in the morning. [facility] memantine 5 mg tablet 2023-0 4-21 00:00: 00 Yes 5mg Take 1 tablet by mouth in the morning. [facility] donepeziL 5 mg tablet 2023-0 4-21 00:00: 00 Yes 5mg Take 1 tablet by mouth in the morning. [facility] memantine 5 mg tablet 2023-0 4-21 00:00: 00 Yes 5mg Take 1 tablet by mouth in the morning. [facility] donepeziL 5 mg tablet 2023-0 4-21 00:00: 00 Yes 5mg Take 1 tablet by mouth in the morning. [facility] memantine 5 mg tablet 3-0 4-21 00:00: 00 Yes 5mg Take 1 tablet by mouth in the morning. [facility] donepeziL 5 mg tablet 3-0 4-21 00:00: 00 Yes 5mg Take 1 tablet by mouth in the morning. [facility] memantine 5 mg tablet 3-0 4-21 00:00: 00 Yes 5mg Take 1 tablet by mouth in the morning. [facility] donepeziL 5 mg tablet 3-0 4-21 00:00: 00 03-01 00:00 :00 No 5mg Take 1 tablet by mouth in the morning. [facility] memantine 5 mg tablet 3-0 4-21 00:00: 00 03-01 00:00 :00 No 5mg Take 1 tablet by mouth in the morning. [facility] donepeziL 5 mg tablet 3-0 4-21 00:00: 00 03-01 00:00 :00 No 5mg Take 1 tablet by mouth in the morning. [facility] memantine 5 mg tablet 2022-0 4-21 00:00: 00 03-01 00:00 :00 No 5mg Take 1 tablet by mouth in the morning. [facility] tamsulosin 0.4 mg 24 hr capsule 3-0 3-27 00:00: 00 01-13 04:59 :00 No [id number] .4mg Take 1 capsule by mouth in the morning for 30 days. [facility] tamsulosin 0.4 mg 24 hr capsule 3-0 3-27 00:00: 00 01-13 04:59 :00 No [id number] .4mg Take 1 capsule by mouth in the morning for 30 days. [facility] tamsulosin 0.4 mg 24 hr capsule 3-0 3-27 00:00: 00 01-13 04:59 :00 No [id number] .4mg Take 1 capsule by mouth in the morning for 30 days. [facility] tamsulosin 0.4 mg 24 hr capsule 12-13 00:00: 00 01-13 04:59 :00 No [id number] .4mg Take 1 capsule by mouth in the morning for 30 days. [facility] tamsulosin 0.4 mg 24 hr capsule 12-13 00:00: 00 01-13 04:59 :00 No [id number] .4mg Take 1 capsule by mouth in the morning for 30 days. [facility] tamsulosin 0.4 mg 24 hr capsule 12-13 00:00: 00 01-13 04:59 :00 No [id number] .4mg Take 1 capsule by mouth in the morning for 30 days. [facility] donepeziL (ARICEPT) tablet 5 mg 12-12 17:30: 00 Yes 5mg 5 mg, Oral, DAILY, First dose on 12/12/22 at 1230, Until Discontinu ed, Routine [facility] memantine (NAMENDA) tablet 5 mg 12-12 17:30: 00 Yes 5mg 5 mg, Oral, DAILY, First dose on 12/12/22 at 1230, Until Discontinu ed, Routine
hotel staff member approving Restricted medication : TRAVIS ZENG [facility] busPIRone 10 mg tablet 12-12 14:37: 13 Yes 10mg Take 1 tablet by mouth in the morning and 1 tablet in the evening. [facility] rivaroxaban (XARELTO) 15 mg tablet 12-12 14:37: 13 Yes 15mg Take 1 tablet by mouth in the morning. [facility] aspirin 81 mg chewable tablet 12-12 14:37: 13 Yes 81mg Take 81 mg by mouth in the morning. tablet [facility] busPIRone 10 mg tablet 12-12 14:37: 13 Yes 10mg Take 1 tablet by mouth in the morning and 1 tablet in the evening. [facility] rivaroxaban (XARELTO) 15 mg tablet 12-12 14:37: 13 Yes 15mg Take 1 tablet by mouth in the morning. [facility] [facility] busPIRone 10 mg tablet 12-12 14:37: 13 Yes 10mg Take 1 tablet by mouth in the morning and 1 tablet in the evening. [facility] rivaroxaban (XARELTO) 15 mg tablet 12-12 14:37: 13 Yes 15mg Take 1 tablet by mouth in the morning. [facility] aspirin 81 mg chewable tablet 12-12 14:37: 13 Yes 81mg Take 81 mg by mouth in the morning. tablet [facility] busPIRone 10 mg tablet 12-12 14:37: 13 Yes 10mg Take 1 tablet by mouth in the morning and 1 tablet in the evening. [facility] rivaroxaban (XARELTO) 15 mg tablet 12-12 14:37: 13 Yes 15mg Take 1 tablet by mouth in the morning. [facility] aspirin 81 mg chewable tablet 12-12 14:37: 13 Yes 81mg Take 81 mg by mouth in the morning. tablet [facility] tamsulosin (FLOMAX) capsule 0.4 mg 12-12 14:00: 00 Yes .4mg 0.4 mg, Oral, DAILY, First dose on 12/12/22 at 0900, Until Discontinu ed, Routine [facility] aspirin EC tablet 81 mg 12-12 14:00: 00 Yes 81mg 81 mg, Oral, DAILY, First dose on 12/12/22 at 0900, Until Discontinu ed, [facility] isolone sod succ (SOLU-MEDRO L) injection 40 mg 12-12 14:00: 00 Yes 40mg 40 mg, Intravenou s, DAILY, First dose (after last modificati on) on 12/12/22 at 0900, Until Discontinu ed, [facility] mg tablet 12-12 11:47: 13 12-12 00:00 :00 No 25mg Take 1 tablet by mouth in the morning and 1 tablet in the evening. Take with meals. [facility] busPIRone 30 mg tablet 12-12 11:47: 13 12-12 00:00 :00 No 30mg Take 1 tablet by mouth in the morning and 1 tablet in the evening. [facility] KCL 20 mEq tablet 12-12 11:47: 13 12-12 00:00 :00 No Take by mouth 2 (two) times daily. [facility] benazepriL 10 mg tablet 12-12 11:47: 13 12-12 00:00 :00 No 10mg Take 1 tablet by mouth in the morning. [facility] hydroCHLORO thiazide 25 mg tablet 12-12 11:47: 13 12-12 00:00 :00 No 25mg Take 1 tablet by mouth in the morning. [facility] melatonin (MELATIN) tablet 6 mg 12-12 02:00: 00 Yes 6mg 6 mg, Oral, QHS, First dose on 12/11/22 at 2100, Until Discontinu ed, Routine [facility] atorvastati n (LIPITOR) tablet 40 mg 12-12 02:00: 00 Yes 40mg 40 mg, Oral, QHS, First dose on 12/11/22 at 2100, Until Discontinu ed, Routine [facility] carvediloL 3.125 mg tablet 12-12 00:00: 00 01-12 04:59 :00 No [id number] 3.125mg Take 1 tablet by mouth in the morning and 1 tablet in the evening. Take with meals. Do all this for 30 days. [facility] atorvastati n 40 mg tablet 12-12 00:00: 00 01-12 04:59 :00 No [id number] 40mg Take 1 tablet by mouth at bedtime for 30 days. [facility] donepeziL 5 mg tablet 12-12 00:00: 00 01-12 04:59 :00 No [id number] 5mg Take 1 tablet by mouth in the morning for 30 days. [facility] memantine 5 mg tablet 2022-0 3- 00:00: 00 01-12 04:59 :00 No [id number] 5mg Take 1 tablet by mouth in the morning for 30 days. [facility] carvediloL 3.125 mg tablet 2022-0 3 00:00: 00 01-12 04:59 :00 No [id number] 3.125mg Take 1 tablet by mouth in the morning and 1 tablet in the evening. Take with meals. Do all this for 30 days. [facility] atorvastati n 40 mg tablet 2022-0 12-12 00:00: 00 01-12 04:59 :00 No [id number] 40mg Take 1 tablet by mouth at bedtime for 30 days. [facility] donepeziL 5 mg tablet 2022-0 12-12 00:00: 00 01-12 04:59 :00 No [id number] 5mg Take 1 tablet by mouth in the morning for 30 days. [facility] memantine 5 mg tablet 2022-0 12-12 00:00: 00 01-12 04:59 :00 No [id number] 5mg Take 1 tablet by mouth in the morning for 30 days. [facility] carvediloL 3.125 mg tablet 2022-0 12-12 00:00: 00 01-12 04:59 :00 No [id number] 3.125mg Take 1 tablet by mouth in the morning and 1 tablet in the evening. Take with meals. Do all this for 30 days. [facility] atorvastati n 40 mg tablet 2022-0 12-12 00:00: 00 01-12 04:59 :00 No [id number] 40mg Take 1 tablet by mouth at bedtime for 30 days. [facility] donepeziL 5 mg tablet 2022-0 3- 00:00: 00 01-12 04:59 :00 No [id number] 5mg Take 1 tablet by mouth in the morning for 30 days. [facility] memantine 5 mg tablet 12-12 00:00: 00 01-12 04:59 :00 No [id number] 5mg Take 1 tablet by mouth in the morning for 30 days. [facility] carvediloL 3.125 mg tablet 12-12 00:00: 00 01-12 04:59 :00 No [id number] 3.125mg Take 1 tablet by mouth in the morning and 1 tablet in the evening. Take with meals. Do all this for 30 days. [facility] atorvastati n 40 mg tablet 12-12 00:00: 00 01-12 04:59 :00 No [id number] 40mg Take 1 tablet by mouth at bedtime for 30 days. [facility] carvediloL 3.125 mg tablet 12-12 00:00: 00 01-12 04:59 :00 No [id number] 3.125mg Take 1 tablet by mouth in the morning and 1 tablet in the evening. Take with meals. Do all this for 30 days. [facility] atorvastati n 40 mg tablet 12-12 00:00: 00 01-12 04:59 :00 No [id number] 40mg Take 1 tablet by mouth at bedtime for 30 days. [facility] carvediloL 3.125 mg tablet 12-12 00:00: 00 01-12 04:59 :00 No [id number] 3.125mg Take 1 tablet by mouth in the morning and 1 tablet in the evening. Take with meals. Do all this for 30 days. [facility] atorvastati n 40 mg tablet 12-12 00:00: 00 01-12 04:59 :00 No [id number] 40mg Take 1 tablet by mouth at bedtime for 30 days. [facility] donepeziL 5 mg tablet 12-12 00:00: 00 01-07 00:00 :00 No [id number] 5mg Take 1 tablet by mouth in the morning for 30 days. [facility] memantine 5 mg tablet 12-12 00:00: 00 01-07 00:00 :00 No [id number] 5mg Take 1 tablet by mouth in the morning for 30 days. [facility] donepeziL 5 mg tablet 12-12 00:00: 00 01-07 00:00 :00 No [id number] 5mg Take 1 tablet by mouth in the morning for 30 days. [facility] memantine 5 mg tablet 12-12 00:00: 00 01-07 00:00 :00 No [id number] 5mg Take 1 tablet by mouth in the morning for 30 days. [facility] levalbutero l (XOPENEX) nebulizer solution 1.25 mg 12-11 17:00: 00 Yes 1.25mg 1.25 mg, Inhalation , QID, First dose (after last modificati on) on 12/11/22 at 1200, Until Discontinu ed, Routine [facility] rivaroxaban (XARELTO) tablet 15 mg 12-11 14:00: 00 Yes 15mg 15 mg, Oral, DAILY, First dose on 12/11/22 at 0900, Until Discontinu ed, Routine [facility] nicotine (NICODERM) 21 mg/24 hr patch 1 Patch 12-11 13:45: 00 Yes 1{patch } 1 Patch, Topical, Administer over 24 Hours, Q24H, First dose on 12/11/22 at 0845, Until Discontinu ed, Routine [facility] ipratropium (ATROVENT) 0.02 % nebulizer solution 0.5 mg 12-11 13:00: 00 Yes .5mg 0.5 mg, Inhalation , QID, First dose on 12/11/22 at 0800, Until Discontinu ed [facility] carvediloL (COREG) tablet 3.125 mg 12-11 13:00: 00 Yes 3.125mg 3.125 mg, Oral, BID MEALS, First dose on 12/11/22 at 0800, Until Discontinu ed, Routine [facility] busPIRone (BUSPAR) tablet 10 mg 12-11 13:00: 00 Yes 10mg 10 mg, Oral, BID, First dose on Tue12/11/22 at 0800, Until Discontinu ed, Routine [facility] methylpredn isolone sod succ (SOLU-MEDRO L) injection 125 mg 12-11 05:00: 00 12-11 12:35 :32 No 125mg 125 mg, Intravenou s, Q6H, First dose on Tue12/11/22 at 0000, Until Discontinu ed, Routine [facility] NaCl 0.9% (NS) IV infusion 1,000 mL 12-11 03:30: 00 12-11 14:48 :38 No 1000mL at 100 mL/hr, IV Infusion, CONTINUOUS , Starting on Tue12/10/22 at 2230, Until Tue12/11/22 at 0948, Routine [facility] albuterol (VENTOLIN) inhaler 2 Puff 12-11 03:17: 09 Yes 2{puff} 2 Puff, Inhalation , Q4HPRN, Starting on Tue12/10/22 at 2217, Until Discontinu ed, Routine, Wheezing, Shortness of Breath [facility] ondansetron (ZOFRAN (PF)) injection 4 mg 12-11 03:05: 14 Yes 4mg 4 mg, Slow IV Push, Q6HPRN, Starting on Tue12/10/22 at 2205, Until Discontinu ed, Routine, Nausea and Vomiting (N/V) [facility] HYDROcodone -acetaminop hen (NORCO) 10-325 mg tablet 1 tablet 12-11 03:05: 00 Yes 1{tbl} 1 tablet, Oral, Q6HPRN, Starting on Tue12/10/22 at 2205, Until Discontinu ed, Routine, Pain (scale 7-10) [facility] HYDROcodone -acetaminop hen (NORCO 5) 5-325 mg tablet 1 tablet 12-11 03:04: 56 12-13 03:03 :56 No 1{tbl} 1 tablet, Oral, Q6HPRN, Starting on Tue12/10/22 at 2204, Until 12/12/22 at 2203, Routine, Pain (scale 4-6) [facility] acetaminoph en (TYLENOL) tablet 650 mg 12-11 03:04: 50 Yes 650mg 650 mg, Oral, Q6HPRN, Starting on Tue12/10/22 at 2204, Until Discontinu ed, Routine, Pain (scale 1-3) [facility] levalbutero l (XOPENEX) nebulizer solution 1.25 mg 12-11 01:00: 00 12-11 15:57 :00 No 1.25mg 1.25 mg, Inhalation , TID, First dose on Tue12/10/22 at 2000, Until Discontinu ed, Routine [facility] NaCl 0.9% (NS) bolus infusion 1,000 mL 12-11 00:15: 00 12-11 03:18 :00 No 1000mL at 999 mL/hr, 1,000 mL, IV Infusion, ONCE, 1 dose, On Tue12/10/22 at 1915, STAT [facility] ipratropium (ATROVENT) 0.02 % nebulizer solution 0.5 mg 12-10 23:48: 58 Yes .5mg 0.5 mg, Inhalation , Q4HPRN, Starting on Tue12/10/22 at 1848, Until Discontinu ed, Routine, Wheezing, Shortness of Breath [facility] NaCl 0.9% (NS) bolus infusion 500 mL 12-04 16:15: 00 12-04 15:41 :58 No 500mL at 999 mL/hr, 500 mL, IV Piggyback, ONCE, 1 dose, On Tue12/04/22 at 1115, STAT [facility] carvediloL 3.125 mg tablet 12-04 12:44: 03 Yes 3.125mg Take 1 tablet by mouth in the morning and 1 tablet in the evening. Take with meals. [facility] busPIRone 10 mg tablet 12-04 12:44: 03 Yes 10mg Take 1 tablet by mouth in the morning and 1 tablet in the evening. [facility] busPIRone 30 mg tablet 3-0 3-18 12:44: 03 Yes 30mg Take 1 tablet by mouth in the morning and 1 tablet in the evening. [facility] KCL 20 mEq tablet 3-0 3-18 12:44: 03 Yes Take by mouth 2 (two) times daily. [facility] benazepriL 10 mg tablet 3-0 3-18 12:44: 03 Yes 10mg Take 1 tablet by mouth in the morning. [facility] rivaroxaban (XARELTO) 15 mg tablet 3-0 -18 12:44: 03 Yes 15mg Take 1 tablet by mouth in the morning. [facility] carvediloL 3.125 mg tablet 3-0 3-18 12:44: 03 Yes 3.125mg Take 1 tablet by mouth in the morning and 1 tablet in the evening. Take with meals. [facility] busPIRone 10 mg tablet 3-0 -18 12:44: 03 Yes 10mg Take 1 tablet by mouth in the morning and 1 tablet in the evening. [facility] busPIRone 30 mg tablet 3-0 18 12:44: 03 Yes 30mg Take 1 tablet by mouth in the morning and 1 tablet in the evening. [facility] KCL 20 mEq tablet 3-0 18 12:44: 03 Yes Take by mouth 2 (two) times daily. [facility] benazepriL 10 mg tablet 3-0 -18 12:44: 03 Yes 10mg Take 1 tablet by mouth in the morning. [facility] rivaroxaban (XARELTO) 15 mg tablet 3-0 3-18 12:44: 03 Yes 15mg Take 1 tablet by mouth in the morning. [facility] carvediloL 3.125 mg tablet 3-0 3-18 12:44: 03 Yes 3.125mg Take 1 tablet by mouth in the morning and 1 tablet in the evening. Take with meals. [facility] busPIRone 10 mg tablet 2023-0 3-18 12:44: 03 Yes 10mg Take 1 tablet by mouth in the morning and 1 tablet in the evening. [facility] busPIRone 30 mg tablet 12-04 12:44: 03 Yes 30mg Take 1 tablet by mouth in the morning and 1 tablet in the evening. [facility] KCL 20 mEq tablet 12-04 12:44: 03 Yes Take by mouth 2 (two) times daily. [facility] benazepriL 10 mg tablet 12-04 12:44: 03 Yes 10mg Take 1 tablet by mouth in the morning. [facility] rivaroxaban (XARELTO) 15 mg tablet 12-04 12:44: 03 Yes 15mg Take 1 tablet by mouth in the morning. [facility] carvediloL 3.125 mg tablet 12-04 12:44: 03 Yes 3.125mg Take 1 tablet by mouth in the morning and 1 tablet in the evening. Take with meals. [facility] busPIRone 10 mg tablet 12-04 12:44: 03 Yes 10mg Take 1 tablet by mouth in the morning and 1 tablet in the evening. [facility] busPIRone 30 mg tablet 12-04 12:44: 03 Yes 30mg Take 1 tablet by mouth in the morning and 1 tablet in the evening. [facility] KCL 20 mEq tablet 12-04 12:44: 03 Yes Take by mouth 2 (two) times daily. [facility] benazepriL 10 mg tablet 12-04 12:44: 03 Yes 10mg Take 1 tablet by mouth in the morning. [facility] rivaroxaban (XARELTO) 15 mg tablet 12-04 12:44: 03 Yes 15mg Take 1 tablet by mouth in the morning. [facility] albuterol 90 mcg/actuati on inhaler 12-04 00:00: 00 Yes [id number] 2{puff} Inhale 2 Puffs every 6 (six) hours as needed for Wheezing or Shortness of Breath. [facility] albuterol 90 mcg/actuati on inhaler 318 00:00: 00 Yes [id number] 2{puff} Inhale 2 Puffs every 6 (six) hours as needed for Wheezing or Shortness of Breath. [facility] albuterol 90 mcg/actuati on inhaler 3 00:00: 00 Yes [id number] 2{puff} Inhale 2 Puffs every 6 (six) hours as needed for Wheezing or Shortness of Breath. [facility] albuterol 90 mcg/actuati on inhaler 3 00:00: 00 Yes [id number] 2{puff} Inhale 2 Puffs every 6 (six) hours as needed for Wheezing or Shortness of Breath. [facility] albuterol 90 mcg/actuati on inhaler 3 00:00: 00 Yes [id number] 2{puff} Inhale 2 Puffs every 6 (six) hours as needed for Wheezing or Shortness of Breath. [facility] albuterol 90 mcg/actuati on inhaler 3 00:00: 00 Yes [id number] 2{puff} Inhale 2 Puffs every 6 (six) hours as needed for Wheezing or Shortness of Breath. [facility] albuterol 90 mcg/actuati on inhaler 3 00:00: 00 Yes [id number] 2{puff} Inhale 2 Puffs every 6 (six) hours as needed for Wheezing or Shortness of Breath. [facility] albuterol 90 mcg/actuati on inhaler 318 00:00: 00 Yes [id number] 2{puff} Inhale 2 Puffs every 6 (six) hours as needed for Wheezing or Shortness of Breath. [facility] albuterol 90 mcg/actuati on inhaler 318 00:00: 00 Yes [id number] 2{puff} Inhale 2 Puffs every 6 (six) hours as needed for Wheezing or Shortness of Breath. [facility] albuterol 90 mcg/actuati on inhaler 318 00:00: 00 Yes [id number] 2{puff} Inhale 2 Puffs every 6 (six) hours as needed for Wheezing or Shortness of Breath. [facility] albuterol 90 mcg/actuati on inhaler 318 00:00: 00 Yes [id number] 2{puff} Inhale 2 Puffs every 6 (six) hours as needed for Wheezing or Shortness of Breath. [facility] albuterol 90 mcg/actuati on inhaler 18 00:00: 00 Yes [id number] 2{puff} Inhale 2 Puffs every 6 (six) hours as needed for Wheezing or Shortness of Breath. [facility] albuterol 90 mcg/actuati on inhaler 18 00:00: 00 01-19 00:00 :00 No [id number] 2{puff} Inhale 2 Puffs every 6 (six) hours as needed for Wheezing or Shortness of Breath. [facility] tiotropium 18 mcg inhalation 0 318 00:00: 00 01-04 04:59 :00 No [id number] 18ug Inhale 1 capsule in the morning for 30 days. [facility] tiotropium 18 mcg inhalation 2022-0 318 00:00: 00 01-04 04:59 :00 No [id number] 18ug Inhale 1 capsule in the morning for 30 days. [facility] tiotropium 18 mcg inhalation 2022-0 3-18 00:00: 00 01-04 04:59 :00 No [id number] 18ug Inhale 1 capsule in the morning for 30 days. [facility] tiotropium 18 mcg inhalation 2022-0 3-18 00:00: 00 01-04 04:59 :00 No [id number] 18ug Inhale 1 capsule in the morning for 30 days. [facility] tiotropium 18 mcg inhalation 2022-0 3-18 00:00: 00 01-04 04:59 :00 No [id number] 18ug Inhale 1 capsule in the morning for 30 days. [facility] tiotropium 18 mcg inhalation 2022-0 3-18 00:00: 00 01-04 04:59 :00 No [id number] 18ug Inhale 1 capsule in the morning for 30 days. [facility] tiotropium 18 mcg inhalation 2022-0 3-18 00:00: 00 01-04 04:59 :00 No [id number] 18ug Inhale 1 capsule in the morning for 30 days. [facility] tiotropium 18 mcg inhalation 2022-0 3-18 00:00: 00 01-04 04:59 :00 No [id number] 18ug Inhale 1 capsule in the morning for 30 days. [facility] doxycycline hyclate 100 mg capsule 18 00:00: 00 12-10 04:59 :00 No [id number] 100mg Take 1 capsule by mouth every 12 (twelve) hours for 5 days. [facility] predniSONE 20 mg tablet 18 00:00: 00 12-10 04:59 :00 No [id number] 40mg Take 2 tablets by mouth in the morning for 5 days. [facility] doxycycline hyclate 100 mg capsule 18 00:00: 00 12-10 04:59 :00 No [id number] 100mg Take 1 capsule by mouth every 12 (twelve) hours for 5 days. [facility] predniSONE 20 mg tablet 18 00:00: 00 12-10 04:59 :00 No [id number] 40mg Take 2 tablets by mouth in the morning for 5 days. [facility] rivaroxaban (XARELTO) tablet 15 mg 12-03 17:15: 00 Yes 15mg 15 mg, Oral, DAILY, First dose (after last modificati on) on Tue12/03/22 at 1215, Until Discontinu ed, Routine [facility] enoxaparin (LOVENOX) injection 40 mg 16 22:00: 00 12-03 16:06 :59 No 40mg 40 mg, Subcutaneo us, DAILY, First dose on Tue12/02/22 at 1700, Until Discontinu ed, Routine [facility] methylPREDN ISolone sod succ (SOLU-MEDRO L (PF)) injection 40 mg 12-02 19:00: 00 Yes 40mg 40 mg, Intravenou s, Q8H, First dose on Tue12/02/22 at 1400, Until Discontinu ed, 1 mL [facility] codeine-gua ifenesin (ROBITUSSIN AC) 10-100 mg/5 mL oral solution 5 mL 12-02 16:25: 07 Yes 5mL 5 mL, Oral, Q6HPRN, Starting on Tue12/02/22 at 1125, Until Discontinu ed, Routine, Cough [facility] levalbutero l (XOPENEX) nebulizer solution 1.25 mg 12-02 13:00: 00 Yes 1.25mg 1.25 mg, Inhalation , Q4H, First dose on Tue12/02/22 at 0800, Until Discontinu ed, Routine [facility] ipratropium (ATROVENT) 0.02 % nebulizer solution 0.5 mg 12-02 13:00: 00 Yes .5mg 0.5 mg, Inhalation , Q4H, First dose on Tue12/02/22 at 0800, Until Discontinu ed, Routine [facility] doxycycline hyclate (Vibramycin ) capsule 100 mg 12-02 11:45: 00 12-07 11:44 :00 No 100mg 100 mg, Oral, Q12H ABX, 10 doses, First dose on Tue12/02/22 at 0645, Last dose on Tue12/06/22 at 1845, MICHAEL
Re ason for Anti-Infec tive: Empiric Therapy for Suspected Infection< br>Empiric Therapy Site: Respirator y
Durat ion of therapy: 5 days [facility] NaCl 0.9% (NS) IV infusion 1,000 mL 12-02 11:45: 00 12-02 14:24 :54 No 1000mL at 75 mL/hr, IV Infusion, CONTINUOUS , Starting on Tue12/02/22 at 0645, Until Tue12/02/22 at 0924, Routine [facility] famotidine (PEPCID AC) tablet 20 mg 12-02 11:30: 03 Yes 20mg 20 mg, Oral, BIDPRN, Starting on Tue12/02/22 at 0630, Until Discontinu ed, Routine, Indigestio n, Heartburn [facility] ondansetron (ZOFRAN (PF)) injection 4 mg 12-02 11:30: 03 Yes 4mg 4 mg, Slow IV Push, Q6HPRN, Starting on Tue12/02/22 at 0630, Until Discontinu ed, Routine, Nausea and Vomiting (N/V) [facility] bisacodyL (DULCOLAX) tablet 10 mg 12-02 11:30: 03 Yes 10mg 10 mg, Oral, QDAILYPRN, Starting on Tue12/02/22 at 0630, Until Discontinu ed, Routine, Constipati on [facility] acetaminoph en (TYLENOL) tablet 650 mg 12-02 11:30: 03 Yes 650mg 650 mg, Oral, Q6HPRN, Starting on Tue12/02/22 at 0630, Until Discontinu ed, Routine, Pain (scale 1-3) [facility] methylpredn isolone sod succ (SOLU-MEDRO L) injection 125 mg 12-02 06:15: 00 12-02 05:27 :00 No 125mg 125 mg, Intravenou s, ONCE, 1 dose, On Tue12/02/22 at 0115, 2 mL [facility] ipratropium -albuteroL (DUONEB) 0.5 mg-3 mg(2.5 mg base)/3 mL nebulizer solution 6 mL 12-02 06:15: 00 12-02 05:33 :00 No 6mL 6 mL, Inhalation , ONCE, 1 dose, On Tue12/02/22 at 0115, Routine [facility] levalbutero l (XOPENEX) nebulizer solution 0.63 mg 12-01 13:15: 00 12-01 12:38 :00 No .63mg 0.63 mg, Inhalation , ONCE, 1 dose, On Tue12/01/22 at 0815, Routine [facility] ipratropium (ATROVENT) 0.02 % nebulizer solution 0.5 mg 12-01 12:30: 00 12-01 12:38 :00 No .5mg 0.5 mg, Inhalation , ONCE, 1 dose, On Tue12/01/22 at 0730, MICHAEL [facility] levalbutero l (XOPENEX) nebulizer solution 1.25 mg 12-01 11:15: 00 12-01 10:38 :00 No 1.25mg 1.25 mg, Inhalation , ONCE, 1 dose, On Tue12/01/22 at 0615, Routine [facility] ipratropium (ATROVENT) 0.02 % nebulizer solution 0.5 mg 12-01 10:30: 00 12-01 10:38 :00 No .5mg 0.5 mg, Inhalation , ONCE, 1 dose, On Tue12/01/22 at 0530, [facility] methylPREDN ISolone sod succ (SOLU-MEDRO L (PF)) injection 40 mg 12-01 10:30: 00 12-01 10:35 :00 No 40mg 40 mg, Intravenou s, ONCE, 1 dose, On Tue12/01/22 at 0530, [facility] Nebulizer & Compressor For Neb Kami 12-01 00:00: 00 Yes [id number] Use as directed [facility] albuterol 90 mcg/actuati on inhaler 12-01 00:00: 00 Yes [id number] 2{puff} Inhale 2 Puffs every 4 (four) hours as needed for Wheezing or Shortness of Breath. [facility] Nebulizer & Compressor For Neb Kami 3-0 3-15 00:00: 00 Yes [id number] Use as directed [facility] albuterol 90 mcg/actuati on inhaler 2022-0 3-15 00:00: 00 Yes [id number] 2{puff} Inhale 2 Puffs every 4 (four) hours as needed for Wheezing or Shortness of Breath. [facility] Nebulizer & Compressor For Neb Kami 2022-0 3-15 00:00: 00 Yes [id number] Use as directed [facility] albuterol 90 mcg/actuati on inhaler 2022-0 3-15 00:00: 00 Yes [id number] 2{puff} Inhale 2 Puffs every 4 (four) hours as needed for Wheezing or Shortness of Breath. [facility] Nebulizer & Compressor For Neb Kami 2022-0 3-15 00:00: 00 Yes [id number] Use as directed [facility] Nebulizer & Compressor For Neb Kami 2022-0 3-15 00:00: 00 Yes [id number] Use as directed [facility] Nebulizer & Compressor For Neb Kami 2022-0 3-15 00:00: 00 Yes [id number] Use as directed [facility] Nebulizer & Compressor For Neb Kami 2022-0 3-15 00:00: 00 Yes [id number] Use as directed [facility] Nebulizer & Compressor For Neb Kami 2022-0 3-15 00:00: 00 Yes [id number] Use as directed [facility] Nebulizer & Compressor For Neb Kami 2022-0 3-15 00:00: 00 Yes [id number] Use as directed [facility] Nebulizer & Compressor For Neb Kami 2022-0 3-15 00:00: 00 Yes [id number] Use as directed [facility] Nebulizer & Compressor For Neb Kami 3-0 3-15 00:00: 00 Yes [id number] Use as directed [facility] Nebulizer & Compressor For Neb Kami 3-0 3-15 00:00: 00 Yes [id number] Use as directed [facility] Nebulizer & Compressor For Neb Kami 2022-0 3-15 00:00: 00 Yes [id number] Use as directed [facility] Nebulizer & Compressor For Neb Kami 2022-0 3-15 00:00: 00 Yes Use as directed [facility] Nebulizer & Compressor For Neb Kami 2022-0 3-15 00:00: 00 Yes [id number] Use as directed [facility] Nebulizer & Compressor For Neb Kami 2022-0 3-15 00:00: 00 Yes [id number] Use as directed [facility] Nebulizer & Compressor For Neb Kami 2022-0 3-15 00:00: 00 Yes [id number] Use as directed [facility] Nebulizer & Compressor For Neb Kami 2022-0 3-15 00:00: 00 Yes [id number] Use as directed [facility] Nebulizer & Compressor For Neb Kami 2022-0 3-15 00:00: 00 Yes [id number] Use as directed [facility] Nebulizer & Compressor For Neb Kami 2022-0 3-15 00:00: 00 Yes [id number] Use as directed [facility] Nebulizer & Compressor For Neb Kami 2022-0 3-15 00:00: 00 Yes [id number] Use as directed [facility] Nebulizer & Compressor For Neb Kami 2022-0 3-15 00:00: 00 Yes [id number] Use as directed [facility] Nebulizer & Compressor For Neb Kami 2022-0 3-15 00:00: 00 Yes [id number] Use as directed [facility] Nebulizer & Compressor For Neb Kami 2022-0 3-15 00:00: 00 Yes [id number] Use as directed [facility] Nebulizer & Compressor For Neb Kami 2022-0 3-15 00:00: 00 Yes [id number] Use as directed [facility] Nebulizer & Compressor For Neb Kami 2022-0 3-15 00:00: 00 Yes [id number] Use as directed [facility] Nebulizer & Compressor For Neb Kami 2022-0 3-15 00:00: 00 Yes [id number] Use as directed [facility] Nebulizer & Compressor For Neb Kami 2022-0 3-15 00:00: 00 Yes [id number] Use as directed [facility] Nebulizer & Compressor For Neb Kami 2022-0 3-15 00:00: 00 Yes [id number] Use as directed [facility] Nebulizer & Compressor For Neb Kami 2022-0 3-15 00:00: 00 Yes [id number] Use as directed [facility] Nebulizer & Compressor For Neb Kami 2022-0 3-15 00:00: 00 Yes [id number] Use as directed [facility] Nebulizer & Compressor For Neb Kami 2022-0 3-15 00:00: 00 Yes [id number] Use as directed [facility] Nebulizer & Compressor For Neb Kami 2022-0 3-15 00:00: 00 Yes [id number] Use as directed [facility] Nebulizer & Compressor For Neb Kami 2022-0 3-15 00:00: 00 Yes [id number] Use as directed [facility] Nebulizer & Compressor For Neb Kami 2022-0 3-15 00:00: 00 Yes [id number] Use as directed [facility] Nebulizer & Compressor For Neb Kami 2022-0 3-15 00:00: 00 Yes [id number] Use as directed [facility] Nebulizer & Compressor For Neb Kami 2022-0 3-15 00:00: 00 Yes [id number] Use as directed [facility] Nebulizer & Compressor For Neb Kami 3-0 3-15 00:00: 00 Yes [id number] Use as directed [facility] Nebulizer & Compressor For Neb Kami 3-0 3-15 00:00: 00 Yes [id number] Use as directed [facility] Nebulizer & Compressor For Neb Kami 3-0 3-15 00:00: 00 Yes [id number] Use as directed [facility] Nebulizer & Compressor For Neb Kami 2023-0 3-15 00:00: 00 Yes [id number] Use as directed [facility] Nebulizer & Compressor For Neb Kami 0 315 00:00: 00 Yes [id number] Use as directed [facility] Nebulizer & Compressor For Neb Kami 315 00:00: 00 Yes [id number] Use as directed [facility] Nebulizer & Compressor For Neb Kami 3-15 00:00: 00 Yes [id number] Use as directed [facility] mcg/actuati on inhaler 315 00:00: 00 Yes [id number] 2{puff} Inhale 2 Puffs every 4 (four) hours as needed for Wheezing or Shortness of Breath. [facility] predniSONE 50 mg tablet 315 00:00: 00 Yes [id number] 50mg Take 1 tablet by mouth in the morning. [facility] Nebulizer & Compressor For Neb Kami 315 00:00: 00 Yes [id number] Use as directed [facility] albuterol 90 mcg/actuati on inhaler 315 00:00: 00 Yes [id number] 2{puff} Inhale 2 Puffs every 4 (four) hours as needed for Wheezing or Shortness of Breath. [facility] albuterol 90 mcg/actuati on inhaler 15 00:00: 00 12-12 00:00 :00 No [id number] 2{puff} Inhale 2 Puffs every 4 (four) hours as needed for Wheezing or Shortness of Breath. [facility] predniSONE 50 mg tablet 315 00:00: 00 12-04 00:00 :00 No [id number] 50mg Take 1 tablet by mouth in the morning. [facility] omeprazole 40 mg capsule 12 14:11: 21 11-28 00:00 :00 No 40mg Take 40 mg by mouth daily. [facility] mg tablet 11-28 14:: 11-28 00:00 :00 No 25mg Take 25 mg by mouth 2 (two) times daily with meals. [facility] busPIRone 30 mg tablet 11-28 14:: 11-28 00:00 :00 No 30mg Take 30 mg by mouth 2 (two) times daily. [facility] benazepriL 10 mg tablet 11-28 14:: 11-28 00:00 :00 No 10mg Take 10 mg by mouth daily. [facility] hydroCHLORO thiazide 25 mg tablet 11-28 14:: 11-28 00:00 :00 No 25mg Take 25 mg by mouth daily. [facility] levalbutero l (XOPENEX) nebulizer solution 0.63 mg 11-28 13:00: 00 Yes .63mg 0.63 mg, Inhalation , TID, First dose (after last modificati on) on 11/28/22 at 0800, Until Discontinu ed, [facility] ipratropium (ATROVENT) 0.02 % nebulizer solution 0.5 mg 11-27 20:00: 00 Yes .5mg 0.5 mg, Inhalation , TID, First dose (after last modificati on) on 11/27/22 at 1400, Until Discontinu ed, [facility] nicotine (NICODERM) 21 mg/24 hr patch 1 Patch 11-27 17:30: 00 Yes 1{patch } 1 Patch, Topical, Administer over 24 Hours, Q24H, First dose on 11/27/22 at 1130, Until Discontinu ed, Routine [facility] busPIRone (BUSPAR) tablet 10 mg 11-27 16:15: 00 Yes 10mg 10 mg, Oral, TID, First dose on 11/27/22 at 1015, Until Discontinu ed, Routine [facility] chewable [facility] 81 mg 11-27 16:15: 00 Yes 81mg 81 mg, Oral, DAILY, First dose on 11/27/22 at 1015, Until Discontinu ed, Routine [facility] foLIC acid (FOLATE) tablet 1 mg 11-27 15:00: 00 Yes 1mg 1 mg, Oral, DAILY, First dose on Tue11/27/22 at 0900, Until Discontinu ed, Routine [facility] rivaroxaban (XARELTO) tablet 20 mg 11-27 15:00: 00 Yes 20mg 20 mg, Oral, DAILY, First dose on 11/27/22 at 0900, Until Discontinu ed, Routine [facility] omeprazole (PRILOSEC) capsule 40 mg 11-27 15:00: 00 Yes 40mg 40 mg, Oral, DAILY, First dose on Tue11/27/22 at 0900, Until Discontinu ed [facility] predniSONE (DELTASONE) tablet 40 mg 11-27 15:00: 00 12-02 13:59 :00 No 40mg 40 mg, Oral, DAILY, 5 doses, First dose on Tue11/27/22 at 0900, Last dose on Tue12/01/22 at 0900, Routine [facility] carvediloL (COREG) tablet 25 mg 11-27 14:00: 00 Yes 25mg 25 mg, Oral, BID MEALS, First dose on Tue11/27/22 at 0800, Until Discontinu ed, Routine [facility] levalbutero l (XOPENEX) nebulizer solution 0.31 mg 11-27 14:00: 00 11-28 12:33 :58 No .31mg 0.31 mg, Inhalation , TID, First dose on Tue11/27/22 at 0800, Until Discontinu ed, Routine [facility] ipratropium (ATROVENT) 0.02 % nebulizer solution 0.5 mg 11-27 14:00: 00 11-27 18:48 :56 No .5mg 0.5 mg, Inhalation , QID, First dose on Tue11/27/22 at 0800, Until Discontinu ed, Routine [facility] thiamine (VITAMIN B1) tablet 100 mg 11-27 08:30: 00 Yes 100mg 100 mg, Oral, DAILY, First dose (after last modificati on) on Tue11/27/22 at 0230, Until Discontinu ed, Routine [facility] LORazepam (ATIVAN) injection 1 mg 11-27 08:16: 19 Yes 1mg 1 mg, Slow IV Push, Q4HPRN, Starting on Tue11/27/22 at 0216, Until Discontinu ed, Routine, Agitation, Seizures, withdrawl [facility] levalbutero l (XOPENEX) nebulizer solution 1.25 mg 11-19 14:00: 00 Yes 1.25mg 1.25 mg, Inhalation , TID, First dose on Tue11/19/22 at 0800, Until Discontinu ed, Routine [facility] ipratropium (ATROVENT) 0.02 % nebulizer solution 0.5 mg 11-19 09:30: 00 11-19 08:47 :00 No .5mg 0.5 mg, Inhalation , ONCE, 1 dose, On Tue11/19/22 at 0330, Routine [facility] levalbutero l (XOPENEX) nebulizer solution 1.25 mg 11-19 02:00: 00 11-19 01:21 :00 No 1.25mg 1.25 mg, Inhalation , ONCE, 1 dose, On Elizabeth 11/18/22 at 2000, Routine [facility] thiamine 100 mg tablet 224 00:00: 00 12-13 04:59 :00 No [id number] 100mg Take 1 tablet by mouth in the morning for 30 days. [facility] thiamine 100 mg tablet 0 2-24 00:00: 00 12-13 04:59 :00 No [id number] 100mg Take 1 tablet by mouth in the morning for 30 days. [facility] thiamine 100 mg tablet 0 2-24 00:00: 00 12-13 04:59 :00 No [id number] 100mg Take 1 tablet by mouth in the morning for 30 days. [facility] thiamine 100 mg tablet 0 224 00:00: 00 12-13 04:59 :00 No [id number] 100mg Take 1 tablet by mouth in the morning for 30 days. [facility] thiamine 100 mg tablet 0 24 00:00: 00 12-13 04:59 :00 No [id number] 100mg Take 1 tablet by mouth in the morning for 30 days. [facility] thiamine 100 mg tablet 0 24 00:00: 00 11-28 00:00 :00 No [id number] 100mg Take 1 tablet by mouth in the morning for 30 days. [facility] thiamine (VITAMIN B1) tablet 100 mg 11-11 15:00: 00 Yes 100mg 100 mg, Oral, DAILY, First dose on Tue11/11/22 at 0900, Until Discontinu ed, Routine [facility] omeprazole 40 mg capsule 11-11 13:41: 29 Yes 40mg Take 40 mg by mouth daily. [facility] carvediloL 25 mg tablet 11-11 13:41: 29 Yes 25mg Take 25 mg by mouth 2 (two) times daily with meals. [facility] busPIRone 30 mg tablet 11-11 13:41: 29 Yes 30mg Take 30 mg by mouth 2 (two) times daily. [facility] benazepriL 10 mg tablet 11-11 13:41: 29 Yes 10mg Take 10 mg by mouth daily. [facility] hydroCHLORO thiazide 25 mg tablet 11-11 13:41: 29 Yes 25mg Take 25 mg by mouth daily. [facility] omeprazole 40 mg capsule 11-11 13:41: 29 Yes 40mg Take 40 mg by mouth daily. [facility] carvediloL 25 mg tablet 11-11 13:41: 29 Yes 25mg Take 25 mg by mouth 2 (two) times daily with meals. [facility] busPIRone 30 mg tablet 11-11 13:41: 29 Yes 30mg Take 30 mg by mouth 2 (two) times daily. [facility] benazepriL 10 mg tablet 11-11 13:41: 29 Yes 10mg Take 10 mg by mouth daily. [facility] hydroCHLORO thiazide 25 mg tablet 11-11 13:41: 29 Yes 25mg Take 25 mg by mouth daily. [facility] omeprazole 40 mg capsule 11-11 13:41: 29 Yes 40mg Take 40 mg by mouth daily. [facility] carvediloL 25 mg tablet 11-11 13:41: 29 Yes 25mg Take 25 mg by mouth 2 (two) times daily with meals. [facility] busPIRone 30 mg tablet 11-11 13:41: 29 Yes 30mg Take 30 mg by mouth 2 (two) times daily. [facility] benazepriL 10 mg tablet 11-11 13:41: 29 Yes 10mg Take 10 mg by mouth daily. [facility] hydroCHLORO thiazide 25 mg tablet 11-11 13:41: 29 Yes 25mg Take 25 mg by mouth daily. [facility] omeprazole 40 mg capsule 11-11 13:41: 29 Yes 40mg Take 40 mg by mouth daily. [facility] carvediloL 25 mg tablet 11-11 13:41: 29 Yes 25mg Take 25 mg by mouth 2 (two) times daily with meals. [facility] busPIRone 30 mg tablet 11-11 13:41: 29 Yes 30mg Take 30 mg by mouth 2 (two) times daily. [facility] benazepriL 10 mg tablet 11-11 13:41: 29 Yes 10mg Take 10 mg by mouth daily. [facility] hydroCHLORO thiazide 25 mg tablet 11-11 13:41: 29 Yes 25mg Take 25 mg by mouth daily. [facility] omeprazole 40 mg capsule 11-11 13:41: 29 Yes 40mg Take 40 mg by mouth daily. [facility] carvediloL 25 mg tablet 11-11 13:41: 29 Yes 25mg Take 25 mg by mouth 2 (two) times daily with meals. [facility] busPIRone 30 mg tablet 11-11 13:41: 29 Yes 30mg Take 30 mg by mouth 2 (two) times daily. [facility] benazepriL 10 mg tablet 11-11 13:41: 29 Yes 10mg Take 10 mg by mouth daily. [facility] hydroCHLORO thiazide 25 mg tablet 11-11 13:41: 29 Yes 25mg Take 25 mg by mouth daily. [facility] foLIC acid (FOLATE) tablet 1 mg 11-11 00:15: 00 11-11 00:26 :00 No 1mg 1 mg, Oral, ONCE, 1 dose, On Tue11/10/22 at 1815, Routine [facility] benzocaine- menthoL lozenge 11-11 00:00: 00 Yes [id number] 1{lozen ge} Take 1 Lozenge by mouth every 4 (four) hours as needed for Sore throat. [facility] budesonide- formoteroL 80-4.5 mcg/actuati on inhaler 11-11 00:00: 00 Yes [id number] 2{puff} Inhale 2 Puffs in the morning and 2 Puffs in the evening. [facility] benzocaine- menthoL lozenge 11-11 00:00: 00 Yes [id number] 1{lozen ge} Take 1 Lozenge by mouth every 4 (four) hours as needed for Sore throat. [facility] budesonide- formoteroL 80-4.5 mcg/actuati on inhaler 11-11 00:00: 00 Yes [id number] 2{puff} Inhale 2 Puffs in the morning and 2 Puffs in the evening. [facility] benzocaine- menthoL lozenge 11-11 00:00: 00 Yes [id number] 1{lozen ge} Take 1 Lozenge by mouth every 4 (four) hours as needed for Sore throat. [facility] budesonide- formoteroL 80-4.5 mcg/actuati on inhaler 11-11 00:00: 00 Yes [id number] 2{puff} Inhale 2 Puffs in the morning and 2 Puffs in the evening. [facility] benzocaine- menthoL lozenge 11-11 00:00: 00 Yes [id number] 1{lozen ge} Take 1 Lozenge by mouth every 4 (four) hours as needed for Sore throat. [facility] budesonide- formoteroL 80-4.5 mcg/actuati on inhaler 11-11 00:00: 00 Yes [id number] 2{puff} Inhale 2 Puffs in the morning and 2 Puffs in the evening. [facility] benzocaine- menthoL lozenge 11-11 00:00: 00 Yes [id number] 1{lozen ge} Take 1 Lozenge by mouth every 4 (four) hours as needed for Sore throat. [facility] budesonide- formoteroL 80-4.5 mcg/actuati on inhaler 11-11 00:00: 00 Yes [id number] 2{puff} Inhale 2 Puffs in the morning and 2 Puffs in the evening. [facility] benzocaine- menthoL lozenge 11-11 00:00: 00 11-28 00:00 :00 No [id number] 1{lozen ge} Take 1 Lozenge by mouth every 4 (four) hours as needed for Sore throat. [facility] budesonide- formoteroL 80-4.5 mcg/actuati on inhaler 11-11 00:00: 00 11-28 00:00 :00 No [id number] 2{puff} Inhale 2 Puffs in the morning and 2 Puffs in the evening. [facility] sodium chloride 1 gram tablet 2022-0 11-11 00:00: 00 11-22 05:59 :00 No [id number] 1g Take 1 tablet by mouth in the morning and 1 tablet at noon and 1 tablet in the evening. Take with meals. Do all this for 10 days. [facility] sodium chloride 1 gram tablet 0 11-11 00:00: 00 11-22 05:59 :00 No [id number] 1g Take 1 tablet by mouth in the morning and 1 tablet at noon and 1 tablet in the evening. Take with meals. Do all this for 10 days. [facility] sodium chloride 1 gram tablet 11-11 00:00: 00 11-22 05:59 :00 No [id number] 1g Take 1 tablet by mouth in the morning and 1 tablet at noon and 1 tablet in the evening. Take with meals. Do all this for 10 days. [facility] sodium chloride 1 gram tablet 2022-0 11-11 00:00: 00 11-22 05:59 :00 No [id number] 1g Take 1 tablet by mouth in the morning and 1 tablet at noon and 1 tablet in the evening. Take with meals. Do all this for 10 days. [facility] levoFLOXaci n 750 mg tablet 11-11 00:00: 00 11-17 05:59 :00 No [id number] 750mg Take 1 tablet by mouth every 24 (twenty-fo ur) hours for 5 days. [facility] levoFLOXaci n 750 mg tablet 2022-11-11 00:00: 00 11-17 05:59 :00 No [id number] 750mg Take 1 tablet by mouth every 24 (twenty-fo ur) hours for 5 days. [facility] predniSONE 20 mg tablet 2022-0 11-11 00:00: 00 11-15 05:59 :00 No [id number] 40mg Take 2 tablets by mouth in the morning for 3 days. [facility] predniSONE 20 mg tablet 2022-0 11-11 00:00: 11-15 05:59 :00 No [id number] 40mg Take 2 tablets by mouth in the morning for 3 days. [facility] sodium chloride tablet 1 g 11-10 23:15: 00 Yes 1g 1 g, Oral, TID MEALS, First dose on Tue11/10/22 at 1715, Until Discontinu ed, Routine [facility] benzocaine- menthoL (CEPACOL SORE THROAT (JACINTO-MEN)) lozenge 1 Lozenge 11-10 20:49: 25 Yes 1{lozen ge} 1 Lozenge, Oral, Q4HPRN, Starting on Tue11/10/22 at 1449, Until Discontinu ed, Routine, Sore throat [facility] budesonide- formoteroL (SYMBICORT) 80-4.5 mcg/actuati on inhaler 2 Puff 11-10 17:30: 00 Yes 2{puff} 2 Puff, Inhalation , BID, First dose on Tue11/10/22 at 1130, Until Discontinu ed, Routine [facility] omep[facility] (PRILOSEC) capsule 40 mg 11-10 15:00: 00 Yes 40mg 40 mg, Oral, DAILY, First dose on Tue11/10/22 at 0900, Until Discontinu ed [facility] rivaroxaban (XARELTO) tablet 20 mg 11-10 15:00: 00 Yes 20mg 20 mg, Oral, DAILY, First dose on Tue11/10/22 at 0900, Until Discontinu ed, Routine [facility] aspirin chewable tablet 81 mg 11-10 15:00: 00 Yes 81mg 81 mg, Oral, DAILY, First dose on Tue11/10/22 at 0900, Until Discontinu ed, Routine [facility] methylPREDN ISolone sod succ (SOLU-MEDRO L (PF)) injection 40 mg 11-10 15:00: 00 11-14 14:59 :00 No 40mg 40 mg, Intravenou s, DAILY, 4 doses, First dose on Tue11/10/22 at 0900, Last dose on Tue11/13/22 at 0900, 1 mL [facility] NaCl 0.9% (NS) IV infusion 1,000 mL 11-10 09:00: 00 Yes 1000mL at 100 mL/hr, IV Infusion, CONTINUOUS , Starting on Tue11/10/22 at 0300, Until Discontinu ed, Routine [facility] levoFLOXaci n in D5W (LEVAQUIN) 750 mg/150 [...] Urine
D uration of therapy: [address] [facility] busPIRone (BUSPAR) tablet 30 mg 11-10 02:00: 00 Yes 30mg 30 mg, Oral, BID, First dose on Tue11/09/22 at 2000, Until Discontinu ed, Routine [facility] carvediloL (COREG) tablet 25 mg 11-09 23:00: 00 Yes 25mg 25 mg, Oral, BID MEALS, First dose on Tue11/09/22 at 1700, Until Discontinu ed, Routine [facility] ipratropium (ATROVENT) 0.02 % nebulizer solution 0.5 mg 11-09 22:00: 00 Yes .5mg 0.5 mg, Inhalation , Q4H, First dose on Tue11/09/22 at 1600, Until Discontinu ed, Routine [facility] albuterol (PROVENTIL) 2.5 mg /3 mL (0.083 %) nebulizer solution 2.5 mg 11-09 22:00: 00 Yes 2.5mg 2.5 mg, Inhalation , Q4H, First dose on Tue11/09/22 at 1600, Until Discontinu ed, Routine [facility] NaCl 0.9% (NS) bolus infusion 500 mL 11-09 20:15: 00 11-09 21:30 :21 No 500mL at 999 mL/hr, 500 mL, IV Infusion, ONCE, 1 dose, On Tue11/09/22 at 1415, STAT [facility] ondansetron (ZOFRAN (PF)) injection 4 mg 11-09 20:04: 17 Yes 4mg 4 mg, Slow IV Push, Q6HPRN, Starting on Tue11/09/22 at 1404, Until Discontinu ed, Routine, Nausea and Vomiting (N/V) [facility] acetaminoph en (TYLENOL) tablet 650 mg 11-09 20:04: 07 Yes 650mg 650 mg, Oral, Q6HPRN, Starting on Tue11/09/22 at 1404, Until Discontinu ed, Routine, Pain (scale 1-3), Temp > 38 C [facility] albuterol (PROVENTIL) 2.5 mg /3 mL (0.083 %) nebulizer solution 5 mg 11-09 14:00: 00 11-09 14:05 :00 No 5mg 5 mg, Inhalation , ONCE, 1 dose, On Tue11/09/22 at 0800, STAT [facility] albuterol (PROVENTIL) 2.5 mg /3 mL (0.083 %) nebulizer solution 10 mg 11-09 11:00: 00 11-09 11:04 :00 No 10mg 10 mg, Inhalation , ONCE, 1 dose, On Tue11/09/22 at 0500, STAT [facility] ipratropium (ATROVENT) 0.02 % nebulizer solution 0.5 mg 11-09 09:00: 00 11-09 08:59 :00 No .5mg 0.5 mg, Inhalation , ONCE, 1 dose, On Tue11/09/22 at 0300, MICHAEL [facility] albuterol (PROVENTIL) 2.5 mg /3 mL (0.083 %) nebulizer solution 2.5 mg 11-09 09:00: 00 11-09 08:59 :00 No 2.5mg 2.5 mg, Inhalation , ONCE, 1 dose, On Tue11/09/22 at 0300, STAT [facility] magnesium sulfate in water 2 gram/50 mL (4 %) infusion 2 g 11-09 08:30: 00 11-09 08:22 :00 No 2g 2 g, IV Piggyback, Administer over 60 Minutes, ONCE, 1 dose, On Tue11/09/22 at 0230, Routine [facility] methylPREDN ISolone sodium succinate (SOLU-MEDRO L) injection 125 mg 11-09 07:45: 00 11-09 07:41 :00 No 125mg 125 mg, Intravenou s, ONCE, 1 dose, On Tue11/09/22 at 0145, MICHAEL [facility] ipratropium (ATROVENT) 0.02 % nebulizer solution 0.5 mg 11-09 07:45: 00 11-09 07:40 :00 No .5mg 0.5 mg, Inhalation , ONCE, 1 dose, On Tue11/09/22 at 0145, MICHAEL [facility] albuterol (PROVENTIL) 2.5 mg /3 mL (0.083 %) nebulizer solution 2.5 mg 11-09 07:45: 00 11-09 07:40 :00 No 2.5mg 2.5 mg, Inhalation , ONCE, 1 dose, On Tue11/09/22 at 0145, STAT [facility] cephALEXin (KEFLEX) 500 mg capsule 05-22 00:00: 00 Yes [id number] 500mg Take 1 capsule by mouth 4 (four) times daily. [facility] cephALEXin (KEFLEX) 500 mg capsule 05-22 00:00: 00 Yes [id number] 500mg Take 1 capsule by mouth 4 (four) times daily. [facility] cephALEXin (KEFLEX) 500 mg capsule 05-22 00:00: 00 11-11 00:00 :00 No [id number] 500mg Take 1 capsule by mouth 4 (four) times daily. [facility] cefTRIAXone (ROCEPHIN) 1,000 mg in NaCl 0.9% (NS) 50 mL MINI-BAG 12-12 19:00: 00 12-12 18:23 :00 No 1000mg 1,000 mg, IV Piggyback, ONCE, 1 dose, Tue12/12/20 at 1400, 50 mL
Reas on for Anti-Infec tive: Empiric Therapy for Suspected Infection< br>Empiric Therapy Site: Urine
D uration of therapy: 72 hours [facility] carvediloL 25 mg tablet 12-12 18:38: 04 Yes 25mg Take 25 mg by mouth 2 (two) times daily with meals. [facility] busPIRone 30 mg tablet 12-12 18:38: 04 Yes 30mg Take 30 mg by mouth 2 (two) times daily. [facility] benazepriL 10 mg tablet 12-12 18:38: 04 Yes 10mg Take 10 mg by mouth daily. [facility] hydroCHLORO thiazide 25 mg tablet 12-12 18:38: 04 Yes 25mg Take 25 mg by mouth daily. [facility] carvediloL 25 mg tablet 12-12 18:38: 04 Yes 25mg Take 25 mg by mouth 2 (two) times daily with meals. [facility] busPIRone 30 mg tablet 12-12 18:38: 04 Yes 30mg Take 30 mg by mouth 2 (two) times daily. [facility] benazepriL 10 mg tablet 12-12 18:38: 04 Yes 10mg Take 10 mg by mouth daily. [facility] hydroCHLORO thiazide 25 mg tablet 12-12 18:38: 04 Yes 25mg Take 25 mg by mouth daily. [facility] carvediloL 25 mg tablet 12-12 18:38: 04 Yes 25mg Take 25 mg by mouth 2 (two) times daily with meals. [facility] busPIRone 30 mg tablet 12-12 18:38: 04 Yes 30mg Take 30 mg by mouth 2 (two) times daily. [facility] benazepriL 10 mg tablet 12-12 18:38: 04 Yes 10mg Take 10 mg by mouth daily. [facility] hydroCHLORO thiazide 25 mg tablet 12-12 18:38: 04 Yes 25mg Take 25 mg by mouth daily. [facility] carvediloL 25 mg tablet 12-12 18:38: 04 Yes 25mg Take 25 mg by mouth 2 (two) times daily with meals. [facility] busPIRone 30 mg tablet 12-12 18:38: 04 Yes 30mg Take 30 mg by mouth 2 (two) times daily. [facility] benazepriL 10 mg tablet 12-12 18:38: 04 Yes 10mg Take 10 mg by mouth daily. [facility] hydroCHLORO thiazide 25 mg tablet 12-12 18:38: 04 Yes 25mg Take 25 mg by mouth daily. [facility] carvediloL 25 mg tablet 12-12 18:38: 04 Yes 25mg Take 25 mg by mouth 2 (two) times daily with meals. [facility] busPIRone 30 mg tablet 12-12 18:38: 04 Yes 30mg Take 30 mg by mouth 2 (two) times daily. [facility] benazepriL 10 mg tablet 12-12 18:38: 04 Yes 10mg Take 10 mg by mouth daily. [facility] hydroCHLORO thiazide 25 mg tablet 12-12 18:38: 04 Yes 25mg Take 25 mg by mouth daily. [facility] carvediloL 25 mg tablet 12-12 18:38: 04 Yes 25mg Take 25 mg by mouth 2 (two) times daily with meals. [facility] busPIRone 30 mg tablet 12-12 18:38: 04 Yes 30mg Take 30 mg by mouth 2 (two) times daily. [facility] benazepriL 10 mg tablet 12-12 18:38: 04 Yes 10mg Take 10 mg by mouth daily. [facility] hydroCHLORO thiazide 25 mg tablet 12-12 18:38: 04 Yes 25mg Take 25 mg by mouth daily. [facility] carvediloL 25 mg tablet 12-12 18:38: 04 Yes 25mg Take 25 mg by mouth 2 (two) times daily with meals. [facility] busPIRone 30 mg tablet 12-12 18:38: 04 Yes 30mg Take 30 mg by mouth 2 (two) times daily. [facility] benazepriL 10 mg tablet 12-12 18:38: 04 Yes 10mg Take 10 mg by mouth daily. [facility] hydroCHLORO thiazide 25 mg tablet 12-12 18:38: 04 Yes 25mg Take 25 mg by mouth daily. [facility] carvediloL 25 mg tablet 12-12 18:38: 04 Yes 25mg Take 25 mg by mouth 2 (two) times daily with meals. [facility] busPIRone 30 mg tablet 12-12 18:38: 04 Yes 30mg Take 30 mg by mouth 2 (two) times daily. [facility] benazepriL 10 mg tablet 12-12 18:38: 04 Yes 10mg Take 10 mg by mouth daily. [facility] hydroCHLORO thiazide 25 mg tablet 12-12 18:38: 04 Yes 25mg Take 25 mg by mouth daily. [facility] carvediloL 25 mg tablet 12-12 18:38: 04 Yes 25mg Take 25 mg by mouth 2 (two) times daily with meals. [facility] busPIRone 30 mg tablet 12-12 18:38: 04 Yes 30mg Take 30 mg by mouth 2 (two) times daily. [facility] benazepriL 10 mg tablet 12-12 18:38: 04 Yes 10mg Take 10 mg by mouth daily. [facility] hydroCHLORO thiazide 25 mg tablet 12-12 18:38: 04 Yes 25mg Take 25 mg by mouth daily. [facility] carvediloL 25 mg tablet 12-12 18:38: 04 Yes 25mg Take 25 mg by mouth 2 (two) times daily with meals. [facility] busPIRone 30 mg tablet 12-12 18:38: 04 Yes 30mg Take 30 mg by mouth 2 (two) times daily. [facility] benazepriL 10 mg tablet 12-12 18:38: 04 Yes 10mg Take 10 mg by mouth daily. [facility] hydroCHLORO thiazide 25 mg tablet 12-12 18:38: 04 Yes 25mg Take 25 mg by mouth daily. [facility] carvediloL 25 mg tablet 12-12 18:38: 04 Yes 25mg Take 25 mg by mouth 2 (two) times daily with meals. [facility] busPIRone 30 mg tablet 12-12 18:38: 04 Yes 30mg Take 30 mg by mouth 2 (two) times daily. [facility] benazepriL 10 mg tablet 12-12 18:38: 04 Yes 10mg Take 10 mg by mouth daily. [facility] hydroCHLORO thiazide 25 mg tablet 12-12 18:38: 04 Yes 25mg Take 25 mg by mouth daily. [facility] carvediloL 25 mg tablet 12-12 18:38: 04 Yes 25mg Take 25 mg by mouth 2 (two) times daily with meals. [facility] busPIRone 30 mg tablet 12-12 18:38: 04 Yes 30mg Take 30 mg by mouth 2 (two) times daily. [facility] benazepriL 10 mg tablet 12-12 18:38: 04 Yes 10mg Take 10 mg by mouth daily. [facility] hydroCHLORO thiazide 25 mg tablet 12-12 18:38: 04 Yes 25mg Take 25 mg by mouth daily. [facility] carvediloL 25 mg tablet 12-12 18:38: 04 Yes 25mg Take 25 mg by mouth 2 (two) times daily with meals. [facility] busPIRone 30 mg tablet 12-12 18:38: 04 Yes 30mg Take 30 mg by mouth 2 (two) times daily. [facility] benazepriL 10 mg tablet 12-12 18:38: 04 Yes 10mg Take 10 mg by mouth daily. [facility] hydroCHLORO thiazide 25 mg tablet 12-12 18:38: 04 Yes 25mg Take 25 mg by mouth daily. [facility] carvediloL 25 mg tablet 12-12 18:38: 04 Yes 25mg Take 25 mg by mouth 2 (two) times daily with meals. [facility] busPIRone 30 mg tablet 12-12 18:38: 04 Yes 30mg Take 30 mg by mouth 2 (two) times daily. [facility] benazepriL 10 mg tablet 12-12 18:38: 04 Yes 10mg Take 10 mg by mouth daily. [facility] hydroCHLORO thiazide 25 mg tablet 12-12 18:38: 04 Yes 25mg Take 25 mg by mouth daily. [facility] carvediloL 25 mg tablet 12-12 18:38: 04 Yes 25mg Take 25 mg by mouth 2 (two) times daily with meals. [facility] busPIRone 30 mg tablet 12-12 18:38: 04 Yes 30mg Take 30 mg by mouth 2 (two) times daily. [facility] benazepriL 10 mg tablet 12-12 18:38: 04 Yes 10mg Take 10 mg by mouth daily. [facility] hydroCHLORO thiazide 25 mg tablet 12-12 18:38: 04 Yes 25mg Take 25 mg by mouth daily. [facility] iohexol (OMNIPAQUE 350 BULK-150 mL) injection 120 mL 12-12 17:30: 00 12-12 17:21 :00 No [id number] 120mL 120 mL, Intravenou s, ONCE, 1 dose, Tue12/12/20 at 1230, Routine [facility] aspirin 81 mg EC tablet 12-12 16:57: 40 12-12 00:00 :00 No 81mg Take 81 mg by mouth daily. [facility] varenicline (CHANTIX) 1 mg tablet 12-12 16:57: 18 12-12 00:00 :00 No 1mg Take 1 mg by mouth 2 (two) times daily. [facility] predniSONE 20 mg tablet 12-12 16:57: 12 12-12 00:00 :00 No 20mg Take 20 mg by mouth daily. [facility] fluticasone -umeclidin- vilanter (TRELEGY ELLIPTA) 100-62.5-25 mcg DsDv 12-12 16:56: 46 12-12 00:00 :00 No 1{puff} Inhale 1 Puff daily. [facility] cefpodoxime 100 mg tablet 12-12 00:00: 00 Yes [id number] 100mg Take 1 tablet by mouth 2 (two) times daily. [facility] cefpodoxime 100 mg tablet 12-12 00:00: 00 Yes [id number] 100mg Take 1 tablet by mouth 2 (two) times daily. [facility] cefpodoxime 100 mg tablet 12-12 00:00: 00 Yes [id number] 100mg Take 1 tablet by mouth 2 (two) times daily. [facility] cefpodoxime 100 mg tablet 12-12 00:00: 00 Yes [id number] 100mg Take 1 tablet by mouth 2 (two) times daily. [facility] cefpodoxime 100 mg tablet 12-12 00:00: 00 Yes [id number] 100mg Take 1 tablet by mouth 2 (two) times daily. [facility] cefpodoxime 100 mg tablet 2020-0 12-12 00:00: 00 Yes [id number] 100mg Take 1 tablet by mouth 2 (two) times daily. [facility] cefpodoxime 100 mg tablet 2020-0 12-12 00:00: 00 Yes [id number] 100mg Take 1 tablet by mouth 2 (two) times daily. [facility] cefpodoxime 100 mg tablet 2020-0 12-12 00:00: 00 Yes [id number] 100mg Take 1 tablet by mouth 2 (two) times daily. [facility] cefpodoxime 100 mg tablet 2020-0 12-12 00:00: 00 Yes [id number] 100mg Take 1 tablet by mouth 2 (two) times daily. [facility] cefpodoxime 100 mg tablet 2020-0 12-12 00:00: 00 Yes [id number] 100mg Take 1 tablet by mouth 2 (two) times daily. [facility] cefpodoxime 100 mg tablet 2020-0 12-12 00:00: 00 Yes [id number] 100mg Take 1 tablet by mouth 2 (two) times daily. [facility] cefpodoxime 100 mg tablet 2020-0 12-12 00:00: 00 Yes [id number] 100mg Take 1 tablet by mouth 2 (two) times daily. [facility] cefpodoxime 100 mg tablet 2020-0 12-12 00:00: 00 Yes [id number] 100mg Take 1 tablet by mouth 2 (two) times daily. [facility] cefpodoxime 100 mg tablet 2020-0 12-12 00:00: 00 Yes [id number] 100mg Take 1 tablet by mouth 2 (two) times daily. [facility] cefpodoxime 100 mg tablet 2020-0 12-12 00:00: 00 Yes [id number] 100mg Take 1 tablet by mouth 2 (two) times daily. [facility] cefpodoxime 100 mg tablet 2020-0 12-12 00:00: 00 20211-11 00:00 :00 No [id number] 100mg Take 1 tablet by mouth 2 (two) times daily. [facility] cefpodoxime 100 mg tablet 12-12 00:00: 00 12-12 00:00 :00 No [id number] 100mg Take 1 tablet by mouth 2 (two) times daily for 7 days. [facility] XARELTO 15 mg tablet 10-16 00:00: 00 Yes [facility] XARELTO 15 mg tablet 10-16 00:00: 00 Yes [facility] XARELTO 15 mg tablet 10-16 00:00: 00 Yes [facility] XARELTO 15 mg tablet 10-16 00:00: 00 Yes [facility] XARELTO 15 mg tablet 10-16 00:00: 00 Yes [facility] XARELTO 15 mg tablet 10-16 00:00: 00 Yes [facility] XARELTO 15 mg tablet 10-16 00:00: 00 Yes [facility] XARELTO 15 mg tablet 10-16 00:00: 00 Yes [facility] XARELTO 15 mg tablet 10-16 00:00: 00 Yes [facility] XARELTO 15 mg tablet 10-16 00:00: 00 Yes [facility] XARELTO 15 mg tablet 10-16 00:00: 00 Yes [facility] XARELTO 15 mg tablet 10-16 00:00: 00 Yes [facility] XARELTO 15 mg tablet 10-16 00:00: 00 Yes [facility] XARELTO 15 mg tablet 10-16 00:00: 00 Yes [facility] XARELTO 15 mg tablet 10-16 00:00: 00 Yes [facility] XARELTO 15 mg tablet 10-16 00:00: 00 Yes [facility] XARELTO 15 mg tablet 10-16 00:00: 00 Yes [facility] XARELTO 15 mg tablet 10-16 00:00: 00 Yes [facility] XARELTO 15 mg tablet 10-16 00:00: 00 Yes [facility] XARELTO 15 mg tablet 10-16 00:00: 00 Yes [facility] XARELTO 15 mg tablet 10-16 00:00: 00 Yes [facility] XARELTO 15 mg tablet 10-16 00:00: 00 Yes [facility] XARELTO 15 mg tablet 10-16 00:00: 00 Yes [facility] XARELTO 15 mg tablet 10-16 00:00: 00 11-28 00:00 :00 No [facility] omeprazole 40 mg capsule 2018-09 00:11: 42 Yes 40mg Take 40 mg by mouth daily. [facility] omeprazole 40 mg capsule 2018-09 00:11: 42 Yes 40mg Take 40 mg by mouth daily. [facility] varenicline (CHANTIX) 1 mg tablet 2018-09 00:11: 42 Yes 1mg Take 1 mg by mouth 2 (two) times daily. [facility] predniSONE 20 mg tablet 2018-09 00:11: 42 Yes 20mg Take 20 mg by mouth daily. [facility] omeprazole 40 mg capsule 2018-09 00:11: 42 Yes 40mg Take 40 mg by mouth daily. [facility] fluticasone -umeclidin- vilanter (TRELEGY ELLIPTA) 100-62.5-25 mcg DsDv 2018-09 00:11: 42 Yes 1{puff} Inhale 1 Puff daily. [facility] aspirin 81 mg EC tablet 2018-09 00:11: 42 Yes 81mg Take 81 mg by mouth daily. [facility] varenicline (CHANTIX) 1 mg tablet 2018-09 00:11: 42 Yes 1mg Take 1 mg by mouth 2 (two) times daily. [facility] predniSONE 20 mg tablet 2018-09 00:11: 42 Yes 20mg Take 20 mg by mouth daily. [facility] omeprazole 40 mg capsule 2018-09 00:11: 42 Yes 40mg Take 40 mg by mouth daily. [facility] fluticasone -umeclidin- vilanter (TRELEGY ELLIPTA) 100-62.5-25 mcg DsDv 2018-09 00:11: 42 Yes 1{puff} Inhale 1 Puff daily. [facility] aspirin 81 mg EC tablet 2018-09 00:11: 42 Yes 81mg Take 81 mg by mouth daily. [facility] varenicline (CHANTIX) 1 mg tablet 2018-09 00:11: 42 Yes 1mg Take 1 mg by mouth 2 (two) times daily. [facility] predniSONE 20 mg tablet 2018-09 00:11: 42 Yes 20mg Take 20 mg by mouth daily. [facility] omeprazole 40 mg capsule 2018-09 00:11: 42 Yes 40mg Take 40 mg by mouth daily. [facility] fluticasone -umeclidin- vilanter (TRELEGY ELLIPTA) 100-62.5-25 mcg DsDv 2018-09 00:11: 42 Yes 1{puff} Inhale 1 Puff daily. [facility] aspirin 81 mg EC tablet 2018-09 00:11: 42 Yes 81mg Take 81 mg by mouth daily. [facility] varenicline (CHANTIX) 1 mg tablet 2018-09 00:11: 42 Yes 1mg Take 1 mg by mouth 2 (two) times daily. [facility] predniSONE 20 mg tablet 2018-09 00:11: 42 Yes 20mg Take 20 mg by mouth daily. [facility] omeprazole 40 mg capsule 2018-09 00:11: 42 Yes 40mg Take 40 mg by mouth daily. [facility] fluticasone -umeclidin- vilanter (TRELEGY ELLIPTA) 100-62.5-25 mcg DsDv 2018-09 00:11: 42 Yes 1{puff} Inhale 1 Puff daily. [facility] aspirin 81 mg EC tablet 2018-09 00:11: 42 Yes 81mg Take 81 mg by mouth daily. [facility] varenicline (CHANTIX) 1 mg tablet 2018-09 00:11: 42 Yes 1mg Take 1 mg by mouth 2 (two) times daily. [facility] predniSONE 20 mg tablet 2018-09 00:11: 42 Yes 20mg Take 20 mg by mouth daily. [facility] omeprazole 40 mg capsule 2018-09 00:11: 42 Yes 40mg Take 40 mg by mouth daily. [facility] fluticasone -umeclidin- vilanter (TRELEGY ELLIPTA) 100-62.5-25 mcg DsDv 2018-09 00:11: 42 Yes 1{puff} Inhale 1 Puff daily. [facility] aspirin 81 mg EC tablet 2018-09 00:11: 42 Yes 81mg Take 81 mg by mouth daily. [facility] varenicline (CHANTIX) 1 mg tablet 2018-09 00:11: 42 Yes 1mg Take 1 mg by mouth 2 (two) times daily. [facility] predniSONE 20 mg tablet 2018-09 00:11: 42 Yes 20mg Take 20 mg by mouth daily. [facility] omeprazole 40 mg capsule 2018-09 00:11: 42 Yes 40mg Take 40 mg by mouth daily. [facility] fluticasone -umeclidin- vilanter (TRELEGY ELLIPTA) 100-62.5-25 mcg DsDv 2018-09 00:11: 42 Yes 1{puff} Inhale 1 Puff daily. [facility] aspirin 81 mg EC tablet 2018-09 00:11: 42 Yes 81mg Take 81 mg by mouth daily. [facility] omeprazole 40 mg capsule 2018-09 00:11: 42 Yes 40mg Take 40 mg by mouth daily. [facility] omeprazole 40 mg capsule 2018-09 00:11: 42 Yes 40mg Take 40 mg by mouth daily. [facility] omeprazole 40 mg capsule 2018-09 00:11: 42 Yes 40mg Take 40 mg by mouth daily. [facility] omeprazole 40 mg capsule 2018-09 00:11: 42 Yes 40mg Take 40 mg by mouth daily. [facility] omeprazole 40 mg capsule 2018-09 00:11: 42 Yes 40mg Take 40 mg by mouth daily. [facility] omeprazole 40 mg capsule 2018-09 00:11: 42 Yes 40mg Take 40 mg by mouth daily. [facility] omeprazole 40 mg capsule 2018-09 00:11: 42 Yes 40mg Take 40 mg by mouth daily. [facility] omeprazole 40 mg capsule 2018-09 00:11: 42 Yes 40mg Take 40 mg by mouth daily. [facility] omeprazole 40 mg capsule 2018-09 00:11: 42 Yes 40mg Take 40 mg by mouth daily. [facility] omeprazole 40 mg capsule 2018-09 00:11: 42 Yes 40mg Take 40 mg by mouth daily. [facility] omeprazole 40 mg capsule 2018-09 00:11: 42 Yes 40mg Take 40 mg by mouth daily. [facility] omeprazole 40 mg capsule 2018-09 00:11: 42 Yes 40mg Take 40 mg by mouth daily. [facility] omeprazole 40 mg capsule 2018-09 00:11: 42 Yes 40mg Take 40 mg by mouth daily. [facility] KCL 20 mEq tablet 2018-09 00:00: 00 Yes [id number] 40meq Take 2 tablets by mouth daily. [facility] KCL 20 mEq tablet 2018-09 00:00: 00 Yes [id number] 40meq Take 2 tablets by mouth daily. [facility] atorvastati n 20 mg tablet 2018-09 00:00: 00 Yes [id number] 20mg Take 1 tablet by mouth at bedtime. [facility] metoprolol succinate XL 50 mg 24 hr tablet 2018-09 00:00: 00 Yes [id number] 50mg Take 1 tablet by mouth 2 (two) times daily. [facility] furosemide 40 mg tablet 2018-09 00:00: 00 Yes [id number] 40mg Take 1 tablet by mouth every morning and evening. [facility] KCL 20 mEq tablet 2018-09 00:00: 00 Yes [id number] 40meq Take 2 tablets by mouth daily. [facility] atorvastati n 20 mg tablet 2018-09 00:00: 00 Yes [id number] 20mg Take 1 tablet by mouth at bedtime. [facility] metoprolol succinate XL 50 mg 24 hr tablet 2018-09 00:00: 00 Yes [id number] 50mg Take 1 tablet by mouth 2 (two) times daily. [facility] furosemide 40 mg tablet 2018-09 00:00: 00 Yes [id number] 40mg Take 1 tablet by mouth every morning and evening. [facility] KCL 20 mEq tablet 2018-09 00:00: 00 Yes [id number] 40meq Take 2 tablets by mouth daily. [facility] atorvastati n 20 mg tablet 2018-09 00:00: 00 Yes [id number] 20mg Take 1 tablet by mouth at bedtime. [facility] metoprolol succinate XL 50 mg 24 hr tablet 2018-09 00:00: 00 Yes [id number] 50mg Take 1 tablet by mouth 2 (two) times daily. [facility] furosemide 40 mg tablet 2018-09 00:00: 00 Yes [id number] 40mg Take 1 tablet by mouth every morning and evening. [facility] KCL 20 mEq tablet 2018-09 00:00: 00 Yes [id number] 40meq Take 2 tablets by mouth daily. [facility] atorvastati n 20 mg tablet 2018-09 00:00: 00 Yes [id number] 20mg Take 1 tablet by mouth at bedtime. [facility] metoprolol succinate XL 50 mg 24 hr tablet 2018-09 00:00: 00 Yes [id number] 50mg Take 1 tablet by mouth 2 (two) times daily. [facility] furosemide 40 mg tablet 2018-09 00:00: 00 Yes [id number] 40mg Take 1 tablet by mouth every morning and evening. [facility] KCL 20 mEq tablet 2018-09 00:00: 00 Yes [id number] 40meq Take 2 tablets by mouth daily. [facility] atorvastati n 20 mg tablet 2018-09 00:00: 00 Yes [id number] 20mg Take 1 tablet by mouth at bedtime. [facility] metoprolol succinate XL 50 mg 24 hr tablet 2018-09 00:00: 00 Yes [id number] 50mg Take 1 tablet by mouth 2 (two) times daily. [facility] furosemide 40 mg tablet 2018-09 00:00: 00 Yes [id number] 40mg Take 1 tablet by mouth every morning and evening. [facility] KCL 20 mEq tablet 2018-09 00:00: 00 Yes [id number] 40meq Take 2 tablets by mouth daily. [facility] atorvastati n 20 mg tablet 2018-09 00:00: 00 Yes [id number] 20mg Take 1 tablet by mouth at bedtime. [facility] metoprolol succinate XL 50 mg 24 hr tablet 2018-09 00:00: 00 Yes [id number] 50mg Take 1 tablet by mouth 2 (two) times daily. [facility] furosemide 40 mg tablet 2018-09 00:00: 00 Yes [id number] 40mg Take 1 tablet by mouth every morning and evening. [facility] KCL 20 mEq tablet 2018-09 00:00: 00 Yes [id number] 40meq Take 2 tablets by mouth daily. [facility] KCL 20 mEq tablet 2018-09 00:00: 00 Yes [id number] 40meq Take 2 tablets by mouth daily. [facility] 2018-09 00:00: 00 Yes [id number] 40meq Take 2 tablets by mouth daily. [facility]Eq tablet 2018-09 00:00: 00 Yes [id number] 40meq Take 2 tablets by mouth daily. [facility]Eq tablet 2018-09 00:00: 00 Yes [id number] 40meq Take 2 tablets by mouth daily. [facility]Eq tablet 2018-09 00:00: 00 Yes [id number] 40meq Take 2 tablets by mouth daily. [facility] KCL 20 mEq tablet 2018-09 00:00: 00 Yes [id number] 40meq Take 2 tablets by mouth daily. [facility] KCL 20 mEq tablet 2018-09 00:00: 00 Yes [id number] 40meq Take 2 tablets by mouth daily. [facility] KCL 20 mEq tablet 2018-09 00:00: 00 Yes [id number] 40meq Take 2 tablets by mouth daily. [facility] KCL 20 mEq tablet 2018-09 00:00: 00 Yes [id number] 40meq Take 2 tablets by mouth daily. [facility] KCL 20 mEq tablet 2018-09 00:00: 00 Yes [id number] 40meq Take 2 tablets by mouth daily. [facility] KCL 20 mEq tablet 2018-09 00:00: 00 Yes [id number] 40meq Take 2 tablets by mouth daily. [facility] KCL 20 mEq tablet 2018-09 00:00: 00 Yes [id number] 40meq Take 2 tablets by mouth daily. [facility] KCL 20 mEq tablet 2018-09 00:00: 00 Yes [id number] 40meq Take 2 tablets by mouth daily. [facility] KCL 20 mEq tablet 2018-09 00:00: 00 Yes [id number] 40meq Take 2 tablets by mouth daily. [facility] KCL 20 mEq tablet 2018-09 00:00: 00 Yes [id number] 40meq Take 2 tablets by mouth daily. [facility] KCL 20 mEq tablet 2018-09 00:00: 00 Yes [id number] 40meq Take 2 tablets by mouth daily. [facility] KCL 20 mEq tablet 2018-09 00:00: 00 Yes [id number] 40meq Take 2 tablets by mouth daily. [facility] KCL 20 mEq tablet 2018-09 00:00: 00 Yes [id number] 40meq Take 2 tablets by mouth daily. [facility] KCL 20 mEq tablet 2018-09 00:00: 00 11-28 00:00 :00 No [id number] 40meq Take 2 tablets by mouth daily. [facility] atorvastati n 20 mg tablet 2018-09 00:00: 00 12-12 00:00 :00 No [id number] 20mg Take 1 tablet by mouth at bedtime. [facility] metoprolol succinate XL 50 mg 24 hr tablet 2018-09 00:00: 00 12-12 00:00 :00 No [id number] 50mg Take 1 tablet by mouth 2 (two) times daily. [facility] furosemide 40 mg tablet 2018-09 00:00: 00 12-12 00:00 :00 No [id number] 40mg Take 1 tablet by mouth every morning and evening. [facility] ipratropium -albuterol (DUONEB) 0.5 mg-3 mg(2.5 mg base)/3 mL nebulizer solution 3 mL 05-04 13:00: 00 Yes 3mL 3 mL, Inhalation , QID, First dose on Tue05/04/19 at 0800, Until Discontinu ed, Routine [facility] ibuprofen 600 mg tablet 02-16 00:00: 00 Yes [id number] 600mg Take 1 tablet by mouth every 8 (eight) hours as needed (PAIN). [facility] ibuprofen 600 mg tablet 02-16 00:00: 00 Yes [id number] 600mg Take 1 tablet by mouth every 8 (eight) hours as needed (pain). [facility] ibuprofen 600 mg tablet 02-16 00:00: 00 05-03 00:00 :00 No [id number] 600mg Take 1 tablet by mouth every 8 (eight) hours as needed (PAIN). [facility] ibuprofen 600 mg tablet 02-16 00:00: 05-03 00:00 :00 No [id number] 600mg Take 1 tablet by mouth every 8 (eight) hours as needed (pain). [facility] magnesium oxide (MAG-OX 400) 400 mg tablet 11-11 00:00: 00 Yes 400mg Take 1 Tab by mouth 3 (three) times daily. [facility] enalapril (VASOTEC) 2.5 mg tablet 11-11 00:00: 00 Yes [id number] 2.5mg Take 1 Tab by mouth 2 (two) times daily. [facility] pantoprazol e (PROTONIX) 40 mg EC tablet 11-11 00:00: 00 Yes 40mg Take 1 Tab by mouth daily. [facility] KCL (KLOR-CON M20) 20 mEq tablet 11-11 00:00: 00 Yes 20meq Take 1 Tab by mouth daily. [facility] furosemide (LASIX) 40 mg tablet 11-11 00:00: 00 Yes [id number] 40mg Take 1 Tab by mouth 2 (two) times daily. [facility] metoprolol succinate XL (TOPROL XL) 100 mg 24 hr tablet 11-11 00:00: 00 Yes 100mg Take 1 Tab by mouth daily. [facility] magnesium oxide (MAG-OX 400) 400 mg tablet 11-11 00:00: 00 05-03 00:00 :00 No 400mg Take 1 Tab by mouth 3 (three) times daily. [facility] enalapril (VASOTEC) 2.5 mg tablet 11-11 00:00: 05-03 00:00 :00 No [id number] 2.5mg Take 1 Tab by mouth 2 (two) times daily. [facility] pantoprazol e (PROTONIX) 40 mg EC tablet 11-11 00:00: 00 05-03 00:00 :00 No 40mg Take 1 Tab by mouth daily. [facility] KCL (KLOR-CON M20) 20 mEq tablet 11-11 00:00: 00 05-03 00:00 :00 No 20meq Take 1 Tab by mouth daily. [facility] furosemide (LASIX) 40 mg tablet 11-11 00:00: 00 05-03 00:00 :00 No [id number] 40mg Take 1 Tab by mouth 2 (two) times daily. [facility] metoprolol succinate XL (TOPROL XL) 100 mg 24 hr tablet 11-11 00:00: 00 05-03 00:00 :00 No 100mg Take 1 Tab by mouth daily. [facility] aspirin 81 mg chewable tablet 2013-09 00:00: 00 Yes 81mg Take 1 Tab by mouth daily. [facility] ipratropium (ATROVENT) 0.02 % nebulizer solution 2013-09 00:00: 00 Yes .5mg Inhale 2.5 mL 4 (four) times daily. [facility] levalbutero l (XOPENEX) 0.31 mg/3 mL nebulizer solution 2013-09 00:00: 00 Yes .31mg Inhale 0.31 mg 3 (three) times daily. [facility] aspirin 81 mg chewable tablet 2013-09 00:00: 00 Yes 81mg Take 1 Tab by mouth daily. [facility] ipratropium (ATROVENT) 0.02 % nebulizer solution 2013-09 00:00: 00 Yes .5mg Inhale 2.5 mL 4 (four) times daily. [facility] levalbutero l (XOPENEX) 0.31 mg/3 mL nebulizer solution 2013-09 00:00: 00 Yes .31mg Inhale 0.31 mg 3 (three) times daily. [facility] aspirin 81 mg chewable tablet 2013-09 00:00: 00 Yes 81mg Take 1 Tab by mouth daily. [facility] ipratropium (ATROVENT) 0.02 % nebulizer solution 2013-09 00:00: 00 Yes .5mg Inhale 2.5 mL 4 (four) times daily. [facility] levalbutero l (XOPENEX) 0.31 mg/3 mL nebulizer solution 2013-09 00:00: 00 Yes .31mg Inhale 0.31 mg 3 (three) times daily. [facility] aspirin 81 mg chewable tablet 2013-09 00:00: 00 Yes 81mg Take 1 Tab by mouth daily. [facility] ([facility]ROVENT) 0.02 % nebulizer solution 2013-09 00:00: 00 Yes .5mg Inhale 2.5 mL 4 (four) times daily. [facility] levalbutero l (XOPENEX) 0.31 mg/3 mL nebulizer solution 2013-09 00:00: 00 Yes .31mg Inhale 0.31 mg 3 (three) times daily. [facility] aspirin 81 mg chewable tablet 2013-09 00:00: 00 Yes 81mg Take 1 Tab by mouth daily. [facility] ipratropium (ATROVENT) 0.02 % nebulizer solution 2013-09 00:00: 00 Yes .5mg Inhale 2.5 mL 4 (four) times daily. [facility] levalbutero l (XOPENEX) 0.31 mg/3 mL nebulizer solution 2013-09 00:00: 00 Yes .31mg Inhale 0.31 mg 3 (three) times daily. [facility] aspirin 81 mg chewable tablet 2013-09 00:00: 00 Yes 81mg Take 1 Tab by mouth daily. [facility] ipratropium (ATROVENT) 0.02 % nebulizer solution 2013-09 00:00: 00 Yes .5mg Inhale 2.5 mL 4 (four) times daily. [facility] levalbutero l (XOPENEX) 0.31 mg/3 mL nebulizer solution 2013-09 00:00: 00 Yes .31mg Inhale 0.31 mg 3 (three) times daily. [facility] mg che[facility]able tablet 2013-09 00:00: 00 Yes 81mg Take 1 Tab by mouth daily. [facility]rat[facility]ium (ATROVENT) 0.02 % nebulizer solution 2013-09 00:00: 00 Yes .5mg Inhale 2.5 mL 4 (four) times daily. [facility] leval[facility] (XOPENEX) 0.31 mg/3 mL nebulizer solution 2013-09 00:00: 00 Yes .31mg Inhale 0.31 mg 3 (three) times daily. [facility] aspirin 81 mg chewable tablet 2013-09 00:00: 00 Yes 81mg Take 1 Tab by mouth daily. [facility] ipratropium (ATROVENT) 0.02 % nebulizer solution 2013-09 00:00: 00 Yes .5mg Inhale 2.5 mL 4 (four) times daily. [facility] levalbutero l (XOPENEX) 0.31 mg/3 mL nebulizer solution 2013-09 00:00: 00 Yes .31mg Inhale 0.31 mg 3 (three) times daily. [facility] aspirin 81 mg chewable tablet 2013-09 00:00: 00 Yes 81mg Take 1 Tab by mouth daily. [facility] ipratropium (ATROVENT) 0.02 % nebulizer solution 2013-09 00:00: 00 Yes .5mg Inhale 2.5 mL 4 (four) times daily. [facility] (XOPENEX) 0.31 mg/3 mL nebulizer solution 2013-09 00:00: 00 Yes .31mg Inhale 0.31 mg 3 (three) times daily. [facility] aspirin 81 mg chewable tablet 2013-09 00:00: 00 Yes 81mg Take 1 Tab by mouth daily. [facility] ipratropium (ATROVENT) 0.02 % nebulizer solution 2013-09 00:00: 00 Yes .5mg Inhale 2.5 mL 4 (four) times daily. [facility] levalbutero l (XOPENEX) 0.31 mg/3 mL nebulizer solution 2013-09 00:00: 00 Yes .31mg Inhale 0.31 mg 3 (three) times daily. [facility] aspirin 81 mg chewable tablet 2013-09 00:00: 00 Yes 81mg Take 1 Tab by mouth daily. [facility] ipratropium (ATROVENT) 0.02 % nebulizer solution 2013-09 00:00: 00 Yes .5mg Inhale 2.5 mL 4 (four) times daily. [facility] levalbutero l (XOPENEX) 0.31 mg/3 mL nebulizer solution 2013-09 00:00: 00 Yes .31mg Inhale 0.31 mg 3 (three) times daily. [facility] aspirin 81 mg chewable tablet 2013-09 00:00: 00 Yes 81mg Take 1 Tab by mouth daily. [facility] ipratropium (ATROVENT) 0.02 % nebulizer solution 2013-09 00:00: 00 Yes .5mg Inhale 2.5 mL 4 (four) times daily. [facility] levalbutero l (XOPENEX) 0.31 mg/3 mL nebulizer solution 2013-09 00:00: 00 Yes .31mg Inhale 0.31 mg 3 (three) times daily. [facility] aspirin 81 mg chewable tablet 2013-09 00:00: 00 Yes 81mg Take 1 Tab by mouth daily. [facility] ipratropium (ATROVENT) 0.02 % nebulizer solution 2013-09 00:00: 00 Yes .5mg Inhale 2.5 mL 4 (four) times daily. [facility] levalbutero l (XOPENEX) 0.31 mg/3 mL nebulizer solution 2013-09 00:00: 00 Yes .31mg Inhale 0.31 mg 3 (three) times daily. [facility] mg chewable tablet 2013-09 00:00: 00 Yes 81mg Take 1 Tab by mouth daily. [facility] ipratropium (ATROVENT) 0.02 % nebulizer solution 2013-09 00:00: 00 Yes .5mg Inhale 2.5 mL 4 (four) times daily. [facility] levalbutero l (XOPENEX) 0.31 mg/3 mL nebulizer solution 2013-09 00:00: 00 Yes .31mg Inhale 0.31 mg 3 (three) times daily. [facility] aspirin 81 mg chewable tablet 2013-09 00:00: 00 Yes 81mg Take 1 Tab by mouth daily. [facility] ipratropium (ATROVENT) 0.02 % nebulizer solution 2013-09 00:00: 00 Yes .5mg Inhale 2.5 mL 4 (four) times daily. [facility] leval[facility] (XOPENEX) 0.31 mg/3 mL nebulizer solution 2013-09 00:00: 00 Yes .31mg Inhale 0.31 mg 3 (three) times daily. [facility] aspirin 81 mg chewable tablet 2013-09 00:00: 00 Yes 81mg Take 1 Tab by mouth daily. [facility] ipratropium (ATROVENT) 0.02 % nebulizer solution 2013-09 00:00: 00 Yes .5mg Inhale 2.5 mL 4 (four) times daily. [facility] levalbut[facility] l (XOPENEX) 0.31 mg/3 mL nebulizer solution 2013-09 00:00: 00 Yes .31mg Inhale 0.31 mg 3 (three) times daily. [facility] 81 mg chewable tablet 2013-09 00:00: 00 Yes 81mg Take 1 Tab by mouth daily. [facility] ipratropium (ATROVENT) 0.02 % nebulizer solution 2013-09 00:00: 00 Yes .5mg Inhale 2.5 mL 4 (four) times daily. [facility] levalbutero l (XOPENEX) 0.31 mg/3 mL nebulizer solution 2013-09 00:00: 00 Yes .31mg Inhale 0.31 mg 3 (three) times daily. [facility] aspirin 81 mg chewable tablet 2013-09 00:00: 00 Yes 81mg Take 1 Tab by mouth daily. [facility] ipratropium (ATROVENT) 0.02 % nebulizer solution 2013-09 00:00: 00 Yes .5mg Inhale 2.5 mL 4 (four) times daily. [facility] levalbutero l (XOPENEX) 0.31 mg/3 mL nebulizer solution 2013-09 00:00: 00 Yes .31mg Inhale 0.31 mg 3 (three) times daily. [facility] aspirin 81 mg chewable tablet 2013-09 00:00: 00 Yes 81mg Take 1 Tab by mouth daily. [facility] ipratropium (ATROVENT) 0.02 % nebulizer solution 2013-09 00:00: 00 Yes .5mg Inhale 2.5 mL 4 (four) times daily. [facility] levalbutero l (XOPENEX) 0.31 mg/3 mL nebulizer solution 2013-09 00:00: 00 Yes .31mg Inhale 0.31 mg 3 (three) times daily. [facility] aspirin 81 mg chewable tablet 2013-09 00:00: 00 Yes 81mg Take 1 Tab by mouth daily. [facility] ipratropium (ATROVENT) 0.02 % nebulizer solution 2013-09 00:00: 00 Yes .5mg Inhale 2.5 mL 4 (four) times daily. [facility] levalbutero l (XOPENEX) 0.31 mg/3 mL nebulizer solution 2013-09 00:00: 00 Yes .31mg Inhale 0.31 mg 3 (three) times daily. [facility] aspirin 81 mg chewable tablet 2013-09 00:00: 00 Yes 81mg Take 1 Tab by mouth daily. [facility] ipratropium (ATROVENT) 0.02 % nebulizer solution 2013-09 00:00: 00 Yes .5mg Inhale 2.5 mL 4 (four) times daily. [facility] levalbutero l (XOPENEX) 0.31 mg/3 mL nebulizer solution 2013-09 00:00: 00 Yes .31mg Inhale 0.31 mg 3 (three) times daily. [facility] 81 mg chewable tablet 2013-09 00:00: 00 Yes 81mg Take 1 Tab by mouth daily. [facility] ipratropium (ATROVENT) 0.02 % nebulizer solution 2013-09 00:00: 00 Yes .5mg Inhale 2.5 mL 4 (four) times daily. [facility] levalbutero l (XOPENEX) 0.31 mg/3 mL nebulizer solution 2013-09 00:00: 00 Yes .31mg Inhale 0.31 mg 3 (three) times daily. [facility] aspirin 81 mg chewable tablet 2013-09 00:00: 00 Yes 81mg Take 1 Tab by mouth daily. [facility] ipratropium (ATROVENT) 0.02 % nebulizer solution 2013-09 00:00: 00 Yes .5mg Inhale 2.5 mL 4 (four) times daily. [facility] levalbutero l (XOPENEX) 0.31 mg/3 mL nebulizer solution 2013-09 00:00: 00 Yes .31mg Inhale 0.31 mg 3 (three) times daily. [facility] 81 mg chewable tablet 2013-09 00:00: 00 Yes 81mg Take 1 Tab by mouth daily. [facility] ipratropium (ATROVENT) 0.02 % nebulizer solution 2013-09 00:00: 00 Yes .5mg Inhale 2.5 mL 4 (four) times daily. [facility] levalbutero l (XOPENEX) 0.31 mg/3 mL nebulizer solution 2013-09 00:00: 00 Yes .31mg Inhale 0.31 mg 3 (three) times daily. [facility] aspirin 81 mg chewable tablet 2013-09 00:00: 00 Yes 81mg Take 1 Tab by mouth daily. [facility] ipratropium (ATROVENT) 0.02 % nebulizer solution 2013-09 00:00: 00 Yes .5mg Inhale 2.5 mL 4 (four) times daily. [facility] levalbutero l (XOPENEX) 0.31 mg/3 mL nebulizer solution 2013-09 00:00: 00 Yes .31mg Inhale 0.31 mg 3 (three) times daily. [facility] aspirin 81 mg chewable tablet 2013-09 00:00: 00 Yes 81mg Take 1 Tab by mouth daily. [facility] ipratropium (ATROVENT) 0.02 % nebulizer solution 2013-09 00:00: 00 Yes .5mg Inhale 2.5 mL 4 (four) times daily. [facility] levalbutero l (XOPENEX) 0.31 mg/3 mL nebulizer solution 2013-09 00:00: 00 Yes .31mg Inhale 0.31 mg 3 (three) times daily. [facility] aspirin 81 mg chewable tablet 2013-09 00:00: 00 Yes 81mg Take 1 Tab by mouth daily. [facility] ipratropium (ATROVENT) 0.02 % nebulizer solution 2013-09 00:00: 00 Yes .5mg Inhale 2.5 mL 4 (four) times daily. [facility] levalbutero l (XOPENEX) 0.31 mg/3 mL nebulizer solution 2013-09 00:00: 00 Yes .31mg Inhale 0.31 mg 3 (three) times daily. [facility] aspirin 81 mg chewable tablet 2013-09 00:00: 00 Yes 81mg Take 1 Tab by mouth daily. [facility] ipratropium (ATROVENT) 0.02 % nebulizer solution 2013-09 00:00: 00 Yes .5mg Inhale 2.5 mL 4 (four) times daily. [facility] levalbutero l (XOPENEX) 0.31 mg/3 mL nebulizer solution 2013-09 00:00: 00 Yes .31mg Inhale 0.31 mg 3 (three) times daily. [facility] aspirin 81 mg chewable tablet 2013-09 00:00: 00 11-28 00:00 :00 No 81mg Take 1 Tab by mouth daily. [facility] ipratropium (ATROVENT) 0.02 % nebulizer solution 2013-09 00:00: 00 11-28 00:00 :00 No .5mg Inhale 2.5 mL 4 (four) times daily. [facility] levalbutero l (XOPENEX) 0.31 mg/3 mL nebulizer solution 2013-09 00:00: 00 11-28 00:00 :00 No .31mg Inhale 0.31 mg 3 (three) times daily. [facility] Immunizations Ordered Immunization Name Filled Immunization Name Date Status Comments Source Pneumococcal 20 Conjugate, PCV20 (Prevnar 20) 2022-12-12 00:00:00 Completed [facility] Pneumococcal 20 Conjugate, PCV20 (Prevnar 20) 2022-12-12 00:00:00 Completed [facility] Pneumococcal 20 Conjugate, PCV20 (Prevnar 20) 2022-12-12 00:00:00 Completed [facility] Pneumococcal 20 Conjugate, PCV20 (Prevnar 20) 2022-12-12 00:00:00 Completed [facility] Pneumococcal 20 Conjugate, PCV20 (Prevnar 20) 2022-12-12 00:00:00 Completed [facility] Pneumococcal 20 Conjugate, PCV20 (Prevnar 20) 2022-12-12 00:00:00 Completed [facility] Pneumococcal 20 Conjugate, PCV20 (Prevnar 20) 2022-12-12 00:00:00 Completed [facility] Pneumococcal 20 Conjugate, PCV20 (Prevnar 20) 2022-12-12 00:00:00 Completed [facility] Pneumococcal 20 Conjugate, PCV20 (Prevnar 20) 2022-12-12 00:00:00 Completed [facility] Pneumococcal 20 Conjugate, PCV20 (Prevnar 20) 2022-12-12 00:00:00 Completed [facility] Pneumococcal 20 Conjugate, PCV20 (Prevnar 20) 2022-12-12 00:00:00 Completed [facility] Pneumococcal 20 Conjugate, PCV20 (Prevnar 20) 2022-12-12 00:00:00 Completed [facility] Pneumococcal 20 Conjugate, PCV20 (Prevnar 20) 2022-12-12 00:00:00 Completed [facility] Pneumococcal 20 Conjugate, PCV20 (Prevnar 20) 2022-12-12 00:00:00 Completed [facility] Pneumococcal 20 Conjugate, PCV20 (Prevnar 20) 2022-12-12 00:00:00 Completed [facility] Pneumococcal 20 Conjugate, PCV20 (Prevnar 20) 2022-12-12 00:00:00 Completed [facility] Pneumococcal 20 Conjugate, PCV20 (Prevnar 20) 2022-12-12 00:00:00 Completed [facility] Pneumococcal 20 Conjugate, PCV20 (Prevnar 20) 2022-12-12 00:00:00 Completed [facility] Pneumococcal 20 Conjugate, PCV20 (Prevnar 20) 2022-12-12 00:00:00 Completed [facility] Pneumococcal 20 Conjugate, PCV20 (Prevnar 20) 2022-12-12 00:00:00 Completed [facility] Pneumococcal 20 Conjugate, PCV20 (Prevnar 20) 2022-12-12 00:00:00 Completed [facility] Pneumococcal 20 Conjugate, PCV20 (Prevnar 20) 2022-12-12 00:00:00 Completed [facility] Pneumococcal 20 Conjugate, PCV20 (Prevnar 20) 2022-12-12 00:00:00 Completed [facility] Pneumococcal 20 Conjugate, PCV20 (Prevnar 20) 2022-12-12 00:00:00 Completed [facility] Pneumococcal 20 Conjugate, PCV20 (Prevnar 20) 2022-12-12 00:00:00 Completed [facility] Pneumococcal 20 Conjugate, PCV20 (Prevnar 20) 2022-12-12 00:00:00 Completed [facility] Pneumococcal 20 Conjugate, PCV20 (Prevnar 20) 2022-12-12 00:00:00 Completed [facility] Pneumococcal 20 Conjugate, PCV20 (Prevnar 20) 2022-12-12 00:00:00 Completed [facility] Pneumococcal 20 Conjugate, PCV20 (Prevnar 20) 2022-12-12 00:00:00 Completed [facility] Pneumococcal 20 Conjugate, PCV20 (Prevnar 20) 2022-12-12 00:00:00 Completed [facility] Pneumococcal 20 Conjugate, PCV20 (Prevnar 20) 2022-12-12 00:00:00 Completed [facility] Pneumococcal 20 Conjugate, PCV20 (Prevnar 20) 2022-12-12 00:00:00 Completed [facility] Pneumococcal 20 Conjugate, PCV20 (Prevnar 20) 2022-12-12 00:00:00 Completed [facility] Pneumococcal 20 Conjugate, PCV20 (Prevnar 20) 2022-12-12 00:00:00 Completed [facility] Pneumococcal 20 Conjugate, PCV20 (Prevnar 20) 2022-12-12 00:00:00 Completed [facility] Pneumococcal 20 Conjugate, PCV20 (Prevnar 20) 2022-12-12 00:00:00 Completed [facility] SARS-COV-2 COVID-19 MODERNA 12+ YRS VACCINE 2020-11-23 00:00:00 Completed [facility] SARS-COV-2 COVID-19 MODERNA VACCINE 2020-11-23 00:00:00 Completed [facility] SARS-COV-2 COVID-19 MODERNA 12+ YRS VACCINE 2020-11-23 00:00:00 Completed [facility] SARS-COV-2 COVID-19 MODERNA 12+ YRS VACCINE 2020-11-23 00:00:00 Completed [facility] SARS-COV-2 COVID-19 MODERNA 12+ YRS VACCINE 2020-11-23 00:00:00 Completed [facility] SARS-COV-2 COVID-19 MODERNA 12+ YRS VACCINE 2020-11-23 00:00:00 Completed [facility] SARS-COV-2 COVID-19 MODERNA 12+ YRS VACCINE 2020-11-23 00:00:00 Completed [facility] SARS-COV-2 COVID-19 MODERNA VACCINE 2020-11-23 00:00:00 Completed [facility] SARS-COV-2 COVID-19 MODERNA 12+ YRS VACCINE 2020-11-23 00:00:00 Completed [facility] SARS-COV-2 COVID-19 MODERNA 12+ YRS VACCINE 2020-11-23 00:00:00 Completed [facility] SARS-COV-2 COVID-19 MODERNA 12+ YRS VACCINE 2020-11-23 00:00:00 Completed [facility] SARS-COV-2 COVID-19 MODERNA 12+ YRS VACCINE 2020-11-23 00:00:00 Completed [facility] SARS-COV-2 COVID-19 MODERNA 12+ YRS VACCINE 2020-11-23 00:00:00 Completed [facility] SARS-COV-2 COVID-19 MODERNA 12+ YRS VACCINE 2020-11-23 00:00:00 Completed [facility] SARS-COV-2 COVID-19 MODERNA VACCINE 2020-11-23 00:00:00 Completed [facility] SARS-COV-2 COVID-19 MODERNA 12+ YRS VACCINE 2020-11-23 00:00:00 Completed [facility] SARS-COV-2 COVID-19 MODERNA 12+ YRS VACCINE 2020-11-23 00:00:00 Completed [facility] SARS-COV-2 COVID-19 MODERNA 12+ YRS VACCINE 2020-11-23 00:00:00 [facility] [facility] SARS-COV-2 COVID-19 MODERNA 12+ YRS VACCINE 2020-11-23 00:00:00 Completed [facility] SARS-COV-2 COVID-19 MODERNA 12+ YRS VACCINE 2020-11-23 00:00:00 Completed [facility] SARS-COV-2 COVID-19 MODERNA 12+ YRS VACCINE 2020-11-23 00:00:00 Completed [facility] SARS-COV-2 COVID-19 MODERNA 12+ YRS VACCINE 2020-11-23 00:00:00 Completed [facility] SARS-COV-2 COVID-19 MODERNA 12+ YRS VACCINE 2020-11-23 00:00:00 Completed [facility] SARS-COV-2 COVID-19 MODERNA 12+ YRS VACCINE 2020-11-23 00:00:00 Completed [facility] SARS-COV-2 COVID-19 MODERNA 12+ YRS VACCINE 2020-11-23 00:00:00 Completed [facility] SARS-COV-2 COVID-19 MODERNA 12+ YRS VACCINE 2020-11-23 00:00:00 Completed [facility] SARS-COV-2 COVID-19 MODERNA 12+ YRS VACCINE 2020-11-23 00:00:00 Completed [facility] SARS-COV-2 COVID-19 MODERNA 12+ YRS VACCINE 2020-11-23 00:00:00 Completed [facility] SARS-COV-2 COVID-19 MODERNA 12+ YRS VACCINE 2020-11-23 00:00:00 Completed [facility] SARS-COV-2 COVID-19 MODERNA 12+ YRS VACCINE 2020-11-23 00:00:00 Completed [facility] SARS-COV-2 COVID-19 MODERNA 12+ YRS VACCINE 2020-11-23 00:00:00 Completed [facility] SARS-COV-2 COVID-19 MODERNA 12+ YRS VACCINE 2020-11-23 00:00:00 Completed [facility] SARS-COV-2 COVID-19 MODERNA 12+ YRS VACCINE 2020-11-23 00:00:00 Completed [facility] SARS-COV-2 COVID-19 MODERNA 12+ YRS VACCINE 2020-11-23 00:00:00 Completed [facility] SARS-COV-2 COVID-19 MODERNA VACCINE 2020-11-23 00:00:00 Completed [facility] SARS-COV-2 COVID-19 MODERNA 12+ YRS VACCINE 2020-11-23 00:00:00 Completed [facility] SARS-COV-2 COVID-19 MODERNA 12+ YRS VACCINE 2020-11-23 00:00:00 Completed [facility] SARS-COV-2 COVID-19 MODERNA 12+ YRS VACCINE 2020-11-23 00:00:00 Completed [facility] SARS-COV-2 COVID-19 MODERNA 12+ YRS VACCINE 2020-11-23 00:00:00 Completed [facility] SARS-COV-2 COVID-19 MODERNA 12+ YRS VACCINE 2020-11-23 00:00:00 Completed [facility] SARS-COV-2 COVID-19 MODERNA VACCINE 2020-11-23 00:00:00 Completed [facility] SARS-COV-2 COVID-19 MODERNA 12+ YRS VACCINE 2020-11-23 00:00:00 Completed [facility] SARS-COV-2 COVID-19 MODERNA 12+ YRS VACCINE 2020-11-23 00:00:00 Completed [facility] SARS-COV-2 COVID-19 MODERNA 12+ YRS VACCINE 2020-11-23 00:00:00 Completed [facility] SARS-COV-2 COVID-19 MODERNA 12+ YRS VACCINE 2020-11-23 00:00:00 Completed [facility] SARS-COV-2 COVID-19 MODERNA 12+ YRS VACCINE 2020-11-23 00:00:00 Completed [facility] SARS-COV-2 COVID-19 MODERNA VACCINE 2020-11-23 00:00:00 Completed [facility] SARS-COV-2 COVID-19 MODERNA VACCINE 2020-11-23 00:00:00 Completed [facility] SARS-COV-2 COVID-19 MODERNA VACCINE 2020-11-23 00:00:00 Completed [facility] SARS-COV-2 COVID-19 MODERNA VACCINE 2020-11-23 00:00:00 Completed [facility] SARS-COV-2 COVID-19 MODERNA VACCINE 2020-11-23 00:00:00 Completed [facility] SARS-COV-2 COVID-19 MODERNA VACCINE 2020-11-23 00:00:00 Completed [facility] SARS-COV-2 COVID-19 MODERNA VACCINE 2020-11-23 00:00:00 Completed [facility] SARS-COV-2 COVID-19 MODERNA VACCINE 2020-11-23 00:00:00 Completed [facility] SARS-COV-2 COVID-19 MODERNA VACCINE 2020-11-23 00:00:00 Completed [facility] SARS-COV-2 COVID-19 MODERNA VACCINE 2020-11-23 00:00:00 Completed [facility] SARS-COV-2 COVID-19 MODERNA VACCINE 2020-11-23 00:00:00 Completed [facility] SARS-COV-2 COVID-19 MODERNA VACCINE 2020-11-23 00:00:00 Completed [facility] SARS-COV-2 COVID-19 MODERNA VACCINE 2020-11-23 00:00:00 Completed [facility] SARS-COV-2 COVID-19 MODERNA VACCINE 2020-11-23 00:00:00 Completed [facility] SARS-COV-2 COVID-19 MODERNA 12+ YRS VACCINE 2020-11-23 00:00:00 Completed [facility] SARS-COV-2 COVID-19 MODERNA 12+ YRS VACCINE 2020-11-23 00:00:00 Completed [facility] SARS-COV-2 COVID-19 MODERNA 12+ YRS VACCINE 2020-11-23 00:00:00 Completed [facility] SARS-COV-2 COVID-19 MODERNA 12+ YRS VACCINE 2020-11-23 00:00:00 Completed [facility] SARS-COV-2 COVID-19 MODERNA VACCINE 2020-11-23 00:00:00 Completed [facility] SARS-COV-2 COVID-19 MODERNA 12+ YRS VACCINE 2020-11-23 00:00:00 Completed [facility] SARS-COV-2 COVID-19 MODERNA 12+ YRS VACCINE 2020-11-23 00:00:00 Completed [facility] SARS-COV-2 COVID-19 MODERNA 12+ YRS VACCINE 2020-11-23 00:00:00 Completed [facility] SARS-COV-2 COVID-19 MODERNA VACCINE 2020-10-26 00:00:00 Completed [facility] SARS-COV-2 COVID-19 MODERNA 12+ YRS VACCINE 2020-10-26 00:00:00 Completed [facility] SARS-COV-2 COVID-19 MODERNA 12+ YRS VACCINE 2020-10-26 00:00:00 Completed [facility] SARS-COV-2 COVID-19 MODERNA 12+ YRS VACCINE 2020-10-26 00:00:00 Completed [facility] SARS-COV-2 COVID-19 MODERNA 12+ YRS VACCINE 2020-10-26 00:00:00 Completed [facility] SARS-COV-2 COVID-19 MODERNA 12+ YRS VACCINE 2020-10-26 00:00:00 Completed [facility] SARS-COV-2 COVID-19 MODERNA VACCINE 2020-10-26 00:00:00 Completed [facility] SARS-COV-2 COVID-19 MODERNA 12+ YRS VACCINE 2020-10-26 00:00:00 Completed [facility] SARS-COV-2 COVID-19 MODERNA 12+ YRS VACCINE 2020-10-26 00:00:00 Completed [facility] SARS-COV-2 COVID-19 MODERNA 12+ YRS VACCINE 2020-10-26 00:00:00 Completed [facility] SARS-COV-2 COVID-19 MODERNA 12+ YRS VACCINE 2020-10-26 00:00:00 Completed [facility] SARS-COV-2 COVID-19 MODERNA 12+ YRS VACCINE 2020-10-26 00:00:00 Completed [facility] SARS-COV-2 COVID-19 MODERNA 12+ YRS VACCINE 2020-10-26 00:00:00 Completed [facility] SARS-COV-2 COVID-19 MODERNA 12+ YRS VACCINE 2020-10-26 00:00:00 Completed [facility] SARS-COV-2 COVID-19 MODERNA VACCINE 2020-10-26 00:00:00 Completed [facility] SARS-COV-2 COVID-19 MODERNA 12+ YRS VACCINE 2020-10-26 00:00:00 Completed [facility] SARS-COV-2 COVID-19 MODERNA 12+ YRS VACCINE 2020-10-26 00:00:00 Completed [facility] SARS-COV-2 COVID-19 MODERNA 12+ YRS VACCINE 2020-10-26 00:00:00 Completed [facility] SARS-COV-2 COVID-19 MODERNA 12+ YRS VACCINE 2020-10-26 00:00:00 Completed [facility] SARS-COV-2 COVID-19 MODERNA 12+ YRS VACCINE 2020-10-26 00:00:00 Completed [facility] SARS-COV-2 COVID-19 MODERNA 12+ YRS VACCINE 2020-10-26 00:00:00 Completed [facility] SARS-COV-2 COVID-19 MODERNA 12+ YRS VACCINE 2020-10-26 00:00:00 Completed [facility] SARS-COV-2 COVID-19 MODERNA 12+ YRS VACCINE 2020-10-26 00:00:00 Completed [facility] SARS-COV-2 COVID-19 MODERNA 12+ YRS VACCINE 2020-10-26 00:00:00 Completed [facility] SARS-COV-2 COVID-19 MODERNA 12+ YRS VACCINE 2020-10-26 00:00:00 Completed [facility] SARS-COV-2 COVID-19 MODERNA 12+ YRS VACCINE 2020-10-26 00:00:00 Completed [facility] SARS-COV-2 COVID-19 MODERNA 12+ YRS VACCINE 2020-10-26 00:00:00 Completed [facility] SARS-COV-2 COVID-19 MODERNA 12+ YRS VACCINE 2020-10-26 00:00:00 Completed [facility] SARS-COV-2 COVID-19 MODERNA 12+ YRS VACCINE 2020-10-26 00:00:00 Completed [facility] SARS-COV-2 COVID-19 MODERNA 12+ YRS VACCINE 2020-10-26 00:00:00 Completed [facility] SARS-COV-2 COVID-19 MODERNA 12+ YRS VACCINE 2020-10-26 00:00:00 Completed [facility] SARS-COV-2 COVID-19 MODERNA 12+ YRS VACCINE 2020-10-26 00:00:00 Completed [facility] SARS-COV-2 COVID-19 MODERNA 12+ YRS VACCINE 2020-10-26 00:00:00 Completed [facility] SARS-COV-2 COVID-19 MODERNA 12+ YRS VACCINE 2020-10-26 00:00:00 Completed [facility] SARS-COV-2 COVID-19 MODERNA VACCINE 2020-10-26 00:00:00 Completed [facility] SARS-COV-2 COVID-19 MODERNA 12+ YRS VACCINE 2020-10-26 00:00:00 Completed [facility] SARS-COV-2 COVID-19 MODERNA 12+ YRS VACCINE 2020-10-26 00:00:00 Completed [facility] SARS-COV-2 COVID-19 MODERNA 12+ YRS VACCINE 2020-10-26 00:00:00 Completed [facility] SARS-COV-2 COVID-19 MODERNA 12+ YRS VACCINE 2020-10-26 00:00:00 Completed [facility] SARS-COV-2 COVID-19 MODERNA 12+ YRS VACCINE 2020-10-26 00:00:00 Completed [facility] SARS-COV-2 COVID-19 MODERNA VACCINE 2020-10-26 00:00:00 Completed [facility] SARS-COV-2 COVID-19 MODERNA 12+ YRS VACCINE 2020-10-26 00:00:00 Completed [facility] SARS-COV-2 COVID-19 MODERNA 12+ YRS VACCINE 2020-10-26 00:00:00 Completed [facility] SARS-COV-2 COVID-19 MODERNA 12+ YRS VACCINE 2020-10-26 00:00:00 Completed [facility] SARS-COV-2 COVID-19 MODERNA 12+ YRS VACCINE 2020-10-26 00:00:00 Completed [facility] SARS-COV-2 COVID-19 MODERNA 12+ YRS VACCINE 2020-10-26 00:00:00 Completed [facility] SARS-COV-2 COVID-19 MODERNA VACCINE 2020-10-26 00:00:00 Completed [facility] SARS-COV-2 COVID-19 MODERNA VACCINE 2020-10-26 00:00:00 Completed [facility] SARS-COV-2 COVID-19 MODERNA VACCINE 2020-10-26 00:00:00 Completed [facility] SARS-COV-2 COVID-19 MODERNA VACCINE 2020-10-26 00:00:00 Completed [facility] SARS-COV-2 COVID-19 MODERNA VACCINE 2020-10-26 00:00:00 Completed [facility] SARS-COV-2 COVID-19 MODERNA VACCINE 2020-10-26 00:00:00 Completed [facility] SARS-COV-2 COVID-19 MODERNA VACCINE 2020-10-26 00:00:00 Completed [facility] SARS-COV-2 COVID-19 MODERNA VACCINE 2020-10-26 00:00:00 Completed [facility] SARS-COV-2 COVID-19 MODERNA VACCINE 2020-10-26 00:00:00 Completed [facility] SARS-COV-2 COVID-19 MODERNA VACCINE 2020-10-26 00:00:00 Completed [facility] SARS-COV-2 COVID-19 MODERNA VACCINE 2020-10-26 00:00:00 Completed [facility] SARS-COV-2 COVID-19 MODERNA VACCINE 2020-10-26 00:00:00 Completed [facility] SARS-COV-2 COVID-19 MODERNA VACCINE 2020-10-26 00:00:00 Completed [facility] SARS-COV-2 COVID-19 MODERNA VACCINE 2020-10-26 00:00:00 Completed [facility] SARS-COV-2 COVID-19 MODERNA 12+ YRS VACCINE 2020-10-26 00:00:00 Completed [facility] SARS-COV-2 COVID-19 MODERNA 12+ YRS VACCINE 2020-10-26 00:00:00 Completed [facility] SARS-COV-2 COVID-19 MODERNA 12+ YRS VACCINE 2020-10-26 00:00:00 Completed [facility] SARS-COV-2 COVID-19 MODERNA 12+ YRS VACCINE 2020-10-26 00:00:00 Completed [facility] SARS-COV-2 COVID-19 MODERNA VACCINE 2020-10-26 00:00:00 Completed [facility] SARS-COV-2 COVID-19 MODERNA 12+ YRS VACCINE 2020-10-26 00:00:00 Completed [facility] SARS-COV-2 COVID-19 MODERNA 12+ YRS VACCINE 2020-10-26 00:00:00 Completed [facility] SARS-COV-2 COVID-19 MODERNA 12+ YRS VACCINE 2020-10-26 00:00:00 Completed [facility] Td 2019-02-16 00:00:00 Completed [facility] TD, NOS 2019-02-16 00:00:00 Completed [facility] TD, NOS 2019-02-16 00:00:00 Completed [facility] TD, NOS 2019-02-16 00:00:00 Completed [facility] TD, NOS 2019-02-16 00:00:00 Completed [facility] TD, NOS 2019-02-16 00:00:00 Completed [facility] Td 2019-02-16 00:00:00 Completed [facility] TD, NOS 2019-02-16 00:00:00 Completed [facility] TD, NOS 2019-02-16 00:00:00 Completed [facility] TD, NOS 2019-02-16 00:00:00 Completed [facility] TD, NOS 2019-02-16 00:00:00 Completed [facility] TD, NOS 2019-02-16 00:00:00 Completed [facility] TD, NOS 2019-02-16 00:00:00 Completed [facility] TD, NOS 2019-02-16 00:00:00 Completed [facility] Td 2019-02-16 00:00:00 Completed [facility] TD, NOS 2019-02-16 00:00:00 Completed [facility] TD, NOS 2019-02-16 00:00:00 Completed [facility] TD, NOS 2019-02-16 00:00:00 Completed [facility] TD, NOS 2019-02-16 00:00:00 Completed [facility] Td 2019-02-16 00:00:00 Completed [facility] TD, NOS 2019-02-16 00:00:00 Completed [facility] TD, NOS 2019-02-16 00:00:00 Completed [facility] TD, NOS 2019-02-16 00:00:00 Completed [facility] TD, NOS 2019-02-16 00:00:00 Completed [facility] Td 2019-02-16 00:00:00 Completed [facility] TD, NOS 2019-02-16 00:00:00 Completed [facility] TD, NOS 2019-02-16 00:00:00 Completed [facility] TD, NOS 2019-02-16 00:00:00 Completed [facility] TD, NOS 2019-02-16 00:00:00 Completed [facility] TD, NOS 2019-02-16 00:00:00 Completed [facility] TD, NOS 2019-02-16 00:00:00 Completed [facility] TD, NOS 2019-02-16 00:00:00 Completed [facility] Td 2019-02-16 00:00:00 Completed [facility] TD, NOS 2019-02-16 00:00:00 Completed [facility] TD, NOS 2019-02-16 00:00:00 Completed [facility] TD, NOS 2019-02-16 00:00:00 Completed [facility] TD, NOS 2019-02-16 00:00:00 Completed [facility] Td 2019-02-16 00:00:00 Completed [facility] TD, NOS 2019-02-16 00:00:00 Completed [facility] TD, NOS 2019-02-16 00:00:00 Completed [facility] TD, NOS 2019-02-16 00:00:00 Completed [facility] TD, NOS 2019-02-16 00:00:00 Completed [facility] Td 2019-02-16 00:00:00 Completed [facility] TD, NOS 2019-02-16 00:00:00 Completed [facility] TD, NOS 2019-02-16 00:00:00 Completed [facility] TD, NOS 2019-02-16 00:00:00 Completed [facility] TD, NOS 2019-02-16 00:00:00 Completed [facility] TD, NOS 2019-02-16 00:00:00 Completed [facility] TD, NOS 2019-02-16 00:00:00 Completed [facility] Td 2019-02-16 00:00:00 Completed [facility] Td 2019-02-16 00:00:00 Completed [facility] Td 2019-02-16 00:00:00 Completed [facility] Td 2019-02-16 00:00:00 Completed [facility] Td 2019-02-16 00:00:00 Completed [facility] Td 2019-02-16 00:00:00 Completed [facility] Td 2019-02-16 00:00:00 Completed [facility] Td 2019-02-16 00:00:00 Completed [facility] Td 2019-02-16 00:00:00 Completed [facility] Td 2019-02-16 00:00:00 Completed [facility] Td 2019-02-16 00:00:00 Completed [facility] Td 2019-02-16 00:00:00 Completed [facility] Td 2019-02-16 00:00:00 Completed [facility] Td 2019-02-16 00:00:00 Completed [facility] TD, NOS 2019-02-16 00:00:00 Completed [facility] TD, NOS 2019-02-16 00:00:00 Completed [facility] TD, NOS 2019-02-16 00:00:00 Completed [facility] TD, NOS 2019-02-16 00:00:00 Completed [facility] Td 2019-02-16 00:00:00 Completed [facility] TD, NOS 2019-02-16 00:00:00 Completed [facility] TD, NOS 2019-02-16 00:00:00 Completed [facility] TD, NOS 2019-02-16 00:00:00 Completed [facility] Pneumococcal Polysaccharide, PPSV23 (PNEUMOVAX) 2014-09-05 00:00:00 Completed [facility] Influenza Virus Vaccine Quad IM 3+ YRS 2014-09-05 00:00:00 Completed [facility] Pneumococcal Polysaccharide, PPSV23 (PNEUMOVAX) 2014-09-05 00:00:00 Completed [facility] Influenza Virus Vaccine Quad IM 3+ YRS 2014-09-05 00:00:00 Completed [facility] Pneumococcal Polysaccharide, PPSV23 (PNEUMOVAX) 2014-09-05 00:00:00 Completed [facility] Influenza Virus Vaccine Quad IM 3+ YRS 2014-09-05 00:00:00 Completed [facility] Pneumococcal Polysaccharide, PPSV23 (PNEUMOVAX) 2014-09-05 00:00:00 Completed [facility] Influenza Virus Vaccine Quad IM 3+ YRS 2014-09-05 00:00:00 Completed [facility] Pneumococcal Polysaccharide, PPSV23 (PNEUMOVAX) 2014-09-05 00:00:00 Completed [facility] Influenza Virus Vaccine Quad IM 3+ YRS 2014-09-05 00:00:00 Completed [facility] Pneumococcal Polysaccharide, PPSV23 (PNEUMOVAX) 2014-09-05 00:00:00 Completed [facility] Influenza Virus Vaccine Quad IM 3+ YRS 2014-09-05 00:00:00 Completed [facility] Pneumococcal Polysaccharide, PPSV23 (PNEUMOVAX) 2014-09-05 00:00:00 Completed [facility] Influenza Virus Vaccine Quad IM 3+ YRS 2014-09-05 00:00:00 Completed [facility] Pneumococcal Polysaccharide, PPSV23 (PNEUMOVAX) 2014-09-05 00:00:00 Completed [facility] Influenza Virus Vaccine Quad IM 3+ YRS 2014-09-05 00:00:00 Completed [facility] Pneumococcal Polysaccharide, PPSV23 (PNEUMOVAX) 2014-09-05 00:00:00 Completed [facility] Influenza Virus Vaccine Quad IM 3+ YRS 2014-09-05 00:00:00 Completed [facility] Pneumococcal Polysaccharide, PPSV23 (PNEUMOVAX) 2014-09-05 00:00:00 Completed [facility] Influenza Virus Vaccine Quad IM 3+ YRS 2014-09-05 00:00:00 Completed [facility] Pneumococcal Polysaccharide, PPSV23 (PNEUMOVAX) 2014-09-05 00:00:00 Completed [facility] Influenza Virus Vaccine Quad IM 3+ YRS 2014-09-05 00:00:00 Completed [facility] Pneumococcal Polysaccharide, PPSV23 (PNEUMOVAX) 2014-09-05 00:00:00 Completed [facility] Influenza Virus Vaccine Quad IM 3+ YRS 2014-09-05 00:00:00 Completed [facility] Pneumococcal Polysaccharide, PPSV23 (PNEUMOVAX) 2014-09-05 00:00:00 Completed [facility] Influenza Virus Vaccine Quad IM 3+ YRS 2014-09-05 00:00:00 Completed [facility] Influenza Virus Vaccine Quad IM 3+ YRS 2014-09-05 00:00:00 Completed [facility] Pneumococcal Polysaccharide, PPSV23 (PNEUMOVAX) 2014-09-05 00:00:00 Completed [facility] Pneumococcal Polysaccharide, PPSV23 (PNEUMOVAX) 2014-09-05 00:00:00 Completed [facility] Influenza Virus Vaccine Quad IM 3+ YRS 2014-09-05 00:00:00 Completed [facility] Pneumococcal Polysaccharide, PPSV23 (PNEUMOVAX) 2014-09-05 00:00:00 Completed [facility] Influenza Virus Vaccine Quad IM 3+ YRS 2014-09-05 00:00:00 Completed [facility] Pneumococcal Polysaccharide, PPSV23 (PNEUMOVAX) 2014-09-05 00:00:00 Completed [facility] Influenza Virus Vaccine Quad IM 3+ YRS 2014-09-05 00:00:00 Completed [facility] Pneumococcal Polysaccharide, PPSV23 (PNEUMOVAX) 2014-09-05 00:00:00 Completed [facility] Influenza Virus Vaccine Quad IM 3+ YRS 2014-09-05 00:00:00 Completed [facility] Pneumococcal Polysaccharide, PPSV23 (PNEUMOVAX) 2014-09-05 00:00:00 Completed [facility] Influenza Virus Vaccine Quad IM 3+ YRS 2014-09-05 00:00:00 Completed [facility] Pneumococcal Polysaccharide, PPSV23 (PNEUMOVAX) 2014-09-05 00:00:00 Completed [facility] Influenza Virus Vaccine Quad IM 3+ YRS 2014-09-05 00:00:00 Completed [facility] Pneumococcal Polysaccharide, PPSV23 (PNEUMOVAX) 2014-09-05 00:00:00 Completed [facility] Influenza Virus Vaccine Quad IM 3+ YRS 2014-09-05 00:00:00 Completed [facility] Pneumococcal Polysaccharide, PPSV23 (PNEUMOVAX) 2014-09-05 00:00:00 Completed [facility] Influenza Virus Vaccine Quad IM 3+ YRS 2014-09-05 00:00:00 Completed [facility] Pneumococcal Polysaccharide, PPSV23 (PNEUMOVAX) 2014-09-05 00:00:00 Completed [facility] Influenza Virus Vaccine Quad IM 3+ YRS 2014-09-05 00:00:00 Completed [facility] Pneumococcal Polysaccharide, PPSV23 (PNEUMOVAX) 2014-09-05 00:00:00 Completed [facility] Influenza Virus Vaccine Quad IM 3+ YRS 2014-09-05 00:00:00 Completed [facility] Pneumococcal Polysaccharide, PPSV23 (PNEUMOVAX) 2014-09-05 00:00:00 Completed [facility] Influenza Virus Vaccine Quad IM 3+ YRS 2014-09-05 00:00:00 Completed [facility] Pneumococcal Polysaccharide, PPSV23 (PNEUMOVAX) 2014-09-05 00:00:00 Completed [facility] Influenza Virus Vaccine Quad IM 3+ YRS 2014-09-05 00:00:00 Completed [facility] Pneumococcal Polysaccharide, PPSV23 (PNEUMOVAX) 2014-09-05 00:00:00 Completed [facility] Influenza Virus Vaccine Quad IM 3+ YRS 2014-09-05 00:00:00 Completed [facility] Pneumococcal Polysaccharide, PPSV23 (PNEUMOVAX) 2014-09-05 00:00:00 Completed [facility] Influenza Virus Vaccine Quad IM 3+ YRS 2014-09-05 00:00:00 Completed [facility] Pneumococcal Polysaccharide, PPSV23 (PNEUMOVAX) 2014-09-05 00:00:00 Completed [facility] Influenza Virus Vaccine Quad IM 3+ YRS 2014-09-05 00:00:00 Completed [facility] Pneumococcal Polysaccharide, PPSV23 (PNEUMOVAX) 2014-09-05 00:00:00 Completed [facility] Influenza Virus Vaccine Quad IM 3+ YRS 2014-09-05 00:00:00 Completed [facility] Pneumococcal Polysaccharide, PPSV23 (PNEUMOVAX) 2014-09-05 00:00:00 Completed [facility] Influenza Virus Vaccine Quad IM 3+ YRS 2014-09-05 00:00:00 Completed [facility] Influenza Virus Vaccine Quad IM 3+ YRS 2014-09-05 00:00:00 Completed [facility] Pneumococcal Polysaccharide, PPSV23 (PNEUMOVAX) 2014-09-05 00:00:00 Completed [facility] Pneumococcal Polysaccharide, PPSV23 (PNEUMOVAX) 2014-09-05 00:00:00 Completed [facility] Influenza Virus Vaccine Quad IM 3+ YRS 2014-09-05 00:00:00 Completed [facility] Pneumococcal Polysaccharide, PPSV23 (PNEUMOVAX) 2014-09-05 00:00:00 Completed [facility] Influenza Virus Vaccine Quad IM 3+ YRS 2014-09-05 00:00:00 Completed [facility] Pneumococcal Polysaccharide, PPSV23 (PNEUMOVAX) 2014-09-05 00:00:00 Completed [facility] Influenza Virus Vaccine Quad IM 3+ YRS 2014-09-05 00:00:00 Completed [facility] Pneumococcal Polysaccharide, PPSV23 (PNEUMOVAX) 2014-09-05 00:00:00 Completed [facility] Influenza Virus Vaccine Quad IM 3+ YRS 2014-09-05 00:00:00 Completed [facility] Pneumococcal Polysaccharide, PPSV23 (PNEUMOVAX) 2014-09-05 00:00:00 Completed [facility] Influenza Virus Vaccine Quad IM 3+ YRS 2014-09-05 00:00:00 Completed [facility] Pneumococcal Polysaccharide, PPSV23 (PNEUMOVAX) 2014-09-05 00:00:00 Completed [facility] Influenza Virus Vaccine Quad IM 3+ YRS 2014-09-05 00:00:00 Completed [facility] Pneumococcal Polysaccharide, PPSV23 (PNEUMOVAX) 2014-09-05 00:00:00 Completed [facility] Influenza Virus Vaccine Quad IM 3+ YRS 2014-09-05 00:00:00 Completed [facility] Pneumococcal Polysaccharide, PPSV23 (PNEUMOVAX) 2014-09-05 00:00:00 Completed [facility] Influenza Virus Vaccine Quad IM 3+ YRS 2014-09-05 00:00:00 Completed [facility] Pneumococcal Polysaccharide, PPSV23 (PNEUMOVAX) 2014-09-05 00:00:00 Completed [facility] Influenza Virus Vaccine Quad IM 3+ YRS 2014-09-05 00:00:00 Completed [facility] Pneumococcal Polysaccharide, PPSV23 (PNEUMOVAX) 2014-09-05 00:00:00 Completed [facility] Influenza Virus Vaccine Quad IM 3+ YRS 2014-09-05 00:00:00 Completed [facility] Pneumococcal Polysaccharide, PPSV23 (PNEUMOVAX) 2014-09-05 00:00:00 Completed [facility] Influenza Virus Vaccine Quad IM 3+ YRS 2014-09-05 00:00:00 Completed [facility] Pneumococcal Polysaccharide, PPSV23 (PNEUMOVAX) 2014-09-05 00:00:00 Completed [facility] Influenza Virus Vaccine Quad IM 3+ YRS 2014-09-05 00:00:00 Completed [facility] Pneumococcal Polysaccharide, PPSV23 (PNEUMOVAX) 2014-09-05 00:00:00 Completed [facility] Influenza Virus Vaccine Quad IM 3+ YRS 2014-09-05 00:00:00 Completed [facility] Pneumococcal Polysaccharide, PPSV23 (PNEUMOVAX) 2014-09-05 00:00:00 Completed [facility] Influenza Virus Vaccine Quad IM 3+ YRS 2014-09-05 00:00:00 Completed [facility] Pneumococcal Polysaccharide, PPSV23 (PNEUMOVAX) 2014-09-05 00:00:00 Completed [facility] Influenza Virus Vaccine Quad IM 3+ YRS 2014-09-05 00:00:00 Completed [facility] Pneumococcal Polysaccharide, PPSV23 (PNEUMOVAX) 2014-09-05 00:00:00 Completed [facility] Influenza Virus Vaccine Quad IM 3+ YRS 2014-09-05 00:00:00 Completed [facility] Pneumococcal Polysaccharide, PPSV23 (PNEUMOVAX) 2014-09-05 00:00:00 Completed [facility] Influenza Virus Vaccine Quad IM 3+ YRS 2014-09-05 00:00:00 Completed [facility] Pneumococcal Polysaccharide, PPSV23 (PNEUMOVAX) 2014-09-05 00:00:00 Completed [facility] Influenza Virus Vaccine Quad IM 3+ YRS 2014-09-05 00:00:00 Completed [facility] Pneumococcal Polysaccharide, PPSV23 (PNEUMOVAX) 2014-09-05 00:00:00 Completed [facility] Influenza Virus Vaccine Quad IM 3+ YRS 2014-09-05 00:00:00 Completed [facility] Pneumococcal Polysaccharide, PPSV23 (PNEUMOVAX) 2014-09-05 00:00:00 Completed [facility] Influenza Virus Vaccine Quad IM 3+ YRS 2014-09-05 00:00:00 Completed [facility] Pneumococcal Polysaccharide, PPSV23 (PNEUMOVAX) 2014-09-05 00:00:00 Completed [facility] Influenza Virus Vaccine Quad IM 3+ YRS 2014-09-05 00:00:00 Completed [facility] Pneumococcal Polysaccharide, PPSV23 (PNEUMOVAX) 2014-09-05 00:00:00 Completed [facility] Influenza Virus Vaccine Quad IM 3+ YRS 2014-09-05 00:00:00 Completed [facility] Pneumococcal Polysaccharide, PPSV23 (PNEUMOVAX) 2014-09-05 00:00:00 Completed [facility] Influenza Virus Vaccine Quad IM 3+ YRS 2014-09-05 00:00:00 Completed [facility] Pneumococcal Polysaccharide, PPSV23 (PNEUMOVAX) 2014-09-05 00:00:00 Completed [facility] Influenza Virus Vaccine Quad IM 3+ YRS 2014-09-05 00:00:00 Completed [facility] Pneumococcal Polysaccharide, PPSV23 (PNEUMOVAX) 2014-09-05 00:00:00 Completed [facility] Influenza Virus Vaccine Quad IM 3+ YRS 2014-09-05 00:00:00 Completed [facility] Pneumococcal Polysaccharide, PPSV23 (PNEUMOVAX) 2014-09-05 00:00:00 Completed [facility] Influenza Virus Vaccine Quad IM 3+ YRS 2014-09-05 00:00:00 Completed [facility] Pneumococcal Polysaccharide, PPSV23 (PNEUMOVAX) 2014-09-05 00:00:00 Completed [facility] Influenza Virus Vaccine Quad IM 3+ YRS 2014-09-05 00:00:00 Completed [facility] Pneumococcal Polysaccharide, PPSV23 (PNEUMOVAX) 2014-09-05 00:00:00 Completed [facility] Influenza Virus Vaccine Quad IM 3+ YRS 2014-09-05 00:00:00 Completed [facility] Pneumococcal Polysaccharide, PPSV23 (PNEUMOVAX) 2014-09-05 00:00:00 Completed [facility] Influenza Virus Vaccine Quad IM 3+ YRS 2014-09-05 00:00:00 Completed [facility] Pneumococcal Polysaccharide, PPSV23 (PNEUMOVAX) 2014-09-05 00:00:00 Completed [facility] Influenza Virus Vaccine Quad IM 3+ YRS 2014-09-05 00:00:00 Completed [facility] Pneumococcal Polysaccharide, PPSV23 (PNEUMOVAX) 2014-09-05 00:00:00 Completed [facility] Influenza Virus Vaccine Quad IM 3+ YRS 2014-09-05 00:00:00 Completed [facility] Pneumococcal Polysaccharide, PPSV23 (PNEUMOVAX) 2014-09-05 00:00:00 Completed [facility] Influenza Virus Vaccine Quad IM 3+ YRS 2014-09-05 00:00:00 Completed [facility] Pneumococcal Polysaccharide, PPSV23 (PNEUMOVAX) 2014-09-05 00:00:00 Completed [facility] Influenza Virus Vaccine Quad IM 3+ YRS 2014-09-05 00:00:00 Completed [facility] Pneumococcal Polysaccharide, PPSV23 (PNEUMOVAX) 2014-09-05 00:00:00 Completed [facility] Influenza Virus Vaccine Quad IM 3+ YRS 2014-09-05 00:00:00 Completed [facility] Influenza Virus Vaccine Quad IM 3+ YRS 2014-09-05 00:00:00 Completed [facility] Pneumococcal Polysaccharide, PPSV23 (PNEUMOVAX) 2014-09-05 00:00:00 Completed [facility] Pneumococcal Polysaccharide, PPSV23 (PNEUMOVAX) 2014-09-05 00:00:00 Completed [facility] Influenza Virus Vaccine Quad IM 3+ YRS 2014-09-05 00:00:00 Completed [facility] Pneumococcal Polysaccharide, PPSV23 (PNEUMOVAX) 2014-09-05 00:00:00 Completed [facility] Influenza Virus Vaccine Quad IM 3+ YRS 2014-09-05 00:00:00 Completed [facility] Pneumococcal Polysaccharide, PPSV23 (PNEUMOVAX) 2014-09-05 00:00:00 Completed [facility] Influenza Virus Vaccine Quad IM 3+ YRS 2014-09-05 00:00:00 Completed [facility] Pneumococcal Polysaccharide, PPSV23 (PNEUMOVAX) 2014-09-05 00:00:00 Completed [facility] Influenza Virus Vaccine Quad IM 3+ YRS 2014-09-05 00:00:00 Completed [facility] Influenza Virus Vaccine Quad IM 3+ YRS Unknown Completed [facility] Pneumococcal Polysaccharide, PPSV23 (PNEUMOVAX) Unknown Completed [facility] TD, NOS Unknown Completed [facility] SARS-COV-2 COVID-19 MODERNA 12+ YRS VACCINE Unknown Completed [facility] SARS-COV-2 COVID-19 MODERNA 12+ YRS VACCINE Unknown Completed [facility] Pneumococcal 20 Conjugate, PCV20 (Prevnar 20) Unknown Completed [facility] Influenza Virus Vaccine Quad IM 3+ YRS Unknown Completed [facility] Pneumococcal Polysaccharide, PPSV23 (PNEUMOVAX) Unknown Completed [facility] TD, NOS Unknown Completed [facility] SARS-COV-2 COVID-19 MODERNA 12+ YRS VACCINE Unknown Completed [facility] SARS-COV-2 COVID-19 MODERNA 12+ YRS VACCINE Unknown Completed [facility] Pneumococcal 20 Conjugate, PCV20 (Prevnar 20) Unknown Completed [facility] Influenza Virus Vaccine Quad IM 3+ YRS Unknown Completed [facility] Pneumococcal Polysaccharide, PPSV23 (PNEUMOVAX) Unknown Completed [facility] TD, NOS Unknown Completed [facility] SARS-COV-2 COVID-19 MODERNA 12+ YRS VACCINE Unknown Completed [facility] SARS-COV-2 COVID-19 MODERNA 12+ YRS VACCINE Unknown Completed [facility] Pneumococcal 20 Conjugate, PCV20 (Prevnar 20) Unknown Completed [facility] Vital Signs Vital Name Observation Time Observation Value Comments S ource Systolic blood pressure 2023-04-19 15:37:00 126 mm[Hg] [facility] Diastolic blood pressure 2023-04-19 15:37:00 83 mm[Hg] [facility] Heart rate 2023-04-19 15:37:00 94 /min [facility] Respiratory rate 2023-04-19 15:35:00 18 /min [facility] Body height 2023-04-19 15:35:00 177.8 cm [facility] Body weight 2023-04-19 15:35:00 59.138 kg [facility] BMI 2023-04-19 15:35:00 18.71 kg/m2 [facility] Oxygen saturation in Arterial blood by Pulse oximetry 2023-04-19 15:35:00 94 /min [facility] Systolic blood pressure 2023-03-01 20:27:00 143 mm[Hg] [facility] Diastolic blood pressure 2023-03-01 20:27:00 87 mm[Hg] [facility] Heart rate 2023-03-01 20:27:00 99 /min [facility] Body height 2023-03-01 20:27:00 177.8 cm [facility] Body weight 2023-03-01 20:27:00 57.153 kg [facility] BMI 2023-03-01 20:27:00 18.08 kg/m2 [facility] Oxygen saturation in Arterial blood by Pulse oximetry 2023-03-01 20:27:00 99 /min [facility] Systolic blood pressure 2023-02-18 16:17:00 144 mm[Hg] [facility] Diastolic blood pressure 2023-02-18 16:17:00 68 mm[Hg] [facility] Heart rate 2023-02-18 16:17:00 55 /min [facility] Body temperature 2023-02-18 16:17:00 36.06 Tia [facility] Respiratory rate 2023-02-18 16:17:00 18 /min [facility] Oxygen saturation in Arterial blood by Pulse oximetry 2023-02-18 16:17:00 100 /min [facility] Body weight 2023-02-18 07:50:00 58.968 kg [facility] BMI 2023-02-18 07:50:00 18.65 kg/m2 [facility] Body height 2023-02-16 00:31:00 177.8 cm [facility] Oxygen saturation in Arterial blood by Pulse oximetry 2023-02-07 19:29:00 99 /min [facility] Systolic blood pressure 2023-02-07 19:27:00 103 mm[Hg] [facility] Diastolic blood pressure 2023-02-07 19:27:00 75 mm[Hg] [facility] Heart rate 2023-02-07 19:27:00 104 /min [facility] Body temperature 2023-02-07 19:27:00 36.39 Tia [facility] Respiratory rate 2023-02-07 19:27:00 22 /min [facility] Body weight 2023-02-07 19:27:00 72.576 kg [facility] BMI 2023-02-07 19:27:00 22.96 kg/m2 [facility] Heart rate 2023-02-05 20:17:00 85 /min [facility] Respiratory rate 2023-02-05 20:17:00 18 /min [facility] Oxygen saturation in Arterial blood by Pulse oximetry 2023-02-05 20:17:00 100 /min [facility] Systolic blood pressure 2023-02-05 19:53:35 98 mm[Hg] [facility] Diastolic blood pressure 2023-02-05 19:53:35 71 mm[Hg] [facility] Body temperature 2023-02-05 19:51:00 36.5 Tia [facility] Body height 2023-02-05 19:51:00 177.8 cm [facility] Body weight 2023-02-05 19:51:00 72.576 kg [facility] BMI 2023-02-05 19:51:00 22.96 kg/m2 [facility] Heart rate 2023-02-04 20:31:00 76 /min [facility] Respiratory rate 2023-02-04 20:31:00 18 /min [facility] Oxygen saturation in Arterial blood by Pulse oximetry 2023-02-04 20:31:00 97 /min [facility] Systolic blood pressure 2023-02-04 20:15:00 126 mm[Hg] [facility] Diastolic blood pressure 2023-02-04 20:15:00 98 mm[Hg] [facility] Body temperature 2023-02-04 20:15:00 36.83 Tia [facility] Body weight 2023-02-04 20:15:00 72.576 kg [facility] BMI 2023-02-04 20:15:00 22.96 kg/m2 [facility] Systolic blood pressure 2023-02-03 23:00:00 100 mm[Hg] [facility] Diastolic blood pressure 2023-02-03 23:00:00 65 mm[Hg] [facility] Heart rate 2023-02-03 23:00:00 115 /min [facility] Respiratory rate 2023-02-03 23:00:00 20 /min [facility] Oxygen saturation in Arterial blood by Pulse oximetry 2023-02-03 23:00:00 97 /min [facility] Body temperature 2023-02-03 22:44:00 36.72 Tia [facility] Body weight 2023-02-03 22:44:00 72.576 kg [facility] BMI 2023-02-03 22:44:00 22.96 kg/m2 [facility] Systolic blood pressure 2023-02-03 20:02:00 128 mm[Hg] [facility] Diastolic blood pressure 2023-02-03 20:02:00 81 mm[Hg] [facility] Heart rate 2023-02-03 20:02:00 88 /min [facility] Respiratory rate 2023-02-03 20:02:00 25 /min [facility] Oxygen saturation in Arterial blood by Pulse oximetry 2023-02-03 20:02:00 94 /min [facility] Body temperature 2023-02-03 18:18:00 36.61 Tia [facility] Body weight 2023-02-03 17:41:00 72.576 kg [facility] BMI 2023-02-03 17:41:00 22.96 kg/m2 [facility] Heart rate 2023-02-02 22:49:00 107 /min [facility] Respiratory rate 2023-02-02 22:49:00 20 /min [facility] Oxygen saturation in Arterial blood by Pulse oximetry 2023-02-02 22:49:00 94 /min [facility] Systolic blood pressure 2023-02-02 22:32:00 102 mm[Hg] [facility] Diastolic blood pressure 2023-02-02 22:32:00 74 mm[Hg] [facility] Body temperature 2023-02-02 21:58:32 35.83 Tia [facility] Body height 2023-02-02 21:54:00 177.8 cm [facility] Body weight 2023-02-02 21:54:00 72.576 kg [facility] BMI 2023-02-02 21:54:00 22.96 kg/m2 [facility] Systolic blood pressure 2023-01-31 21:00:00 140 mm[Hg] [facility] Diastolic blood pressure 2023-01-31 21:00:00 72 mm[Hg] [facility] Heart rate 2023-01-31 21:00:00 89 /min [facility] Respiratory rate 2023-01-31 21:00:00 20 /min [facility] Oxygen saturation in Arterial blood by Pulse oximetry 2023-01-31 21:00:00 97 /min [facility] Body temperature 2023-01-31 18:50:00 36.72 Tia [facility] Body weight 2023-01-31 18:50:00 72.576 kg [facility] BMI 2023-01-31 18:50:00 22.96 kg/m2 [facility] Systolic blood pressure 2023-01-31 16:09:00 130 mm[Hg] [facility] Diastolic blood pressure 2023-01-31 16:09:00 72 mm[Hg] [facility] Heart rate 2023-01-31 16:09:00 99 /min [facility] Body temperature 2023-01-31 16:09:00 36.39 Tia [facility] Respiratory rate 2023-01-31 16:09:00 18 /min [facility] Body height 2023-01-31 16:09:00 177.8 cm [facility] Body weight 2023-01-31 16:09:00 72.576 kg [facility] BMI 2023-01-31 16:09:00 22.96 kg/m2 [facility] Oxygen saturation in Arterial blood by Pulse oximetry 2023-01-31 16:09:00 97 /min [facility] Systolic blood pressure 2023-01-31 14:50:00 134 mm[Hg] [facility] Diastolic blood pressure 2023-01-31 14:50:00 72 mm[Hg] [facility] Heart rate 2023-01-31 14:50:00 85 /min [facility] Body temperature 2023-01-31 14:50:00 36.39 Tia [facility] Respiratory rate 2023-01-31 14:50:00 20 /min [facility] Body weight 2023-01-31 14:50:00 72.576 kg [facility] BMI 2023-01-31 14:50:00 22.96 kg/m2 [facility] Oxygen saturation in Arterial blood by Pulse oximetry 2023-01-31 14:50:00 100 /min [facility] Respiratory rate 2023-01-29 13:40:00 20 /min [facility] Oxygen saturation in Arterial blood by Pulse oximetry 2023-01-29 13:40:00 100 /min [facility] Systolic blood pressure 2023-01-29 13:06:00 123 mm[Hg] [facility] Diastolic blood pressure 2023-01-29 13:06:00 76 mm[Hg] [facility] Heart rate 2023-01-29 13:06:00 97 /min [facility] Body temperature 2023-01-29 13:06:00 36.61 Tia [facility] Body height 2023-01-29 13:06:00 177.8 cm [facility] Body weight 2023-01-29 13:06:00 72.576 kg [facility] BMI 2023-01-29 13:06:00 22.96 kg/m2 [facility] Systolic blood pressure 2023-01-27 11:47:00 115 mm[Hg] [facility] Diastolic blood pressure 2023-01-27 11:47:00 75 mm[Hg] [facility] Heart rate 2023-01-27 11:47:00 100 /min [facility] Body temperature 2023-01-27 11:47:00 35.78 Tia [facility] Respiratory rate 2023-01-27 11:47:00 28 /min [facility] Oxygen saturation in Arterial blood by Pulse oximetry 2023-01-27 11:47:00 99 /min [facility] Body height 2023-01-27 09:57:00 177.8 cm [facility] Body weight 2023-01-27 09:57:00 72.576 kg [facility] BMI 2023-01-27 09:57:00 22.96 kg/m2 [facility] Heart rate 2023-01-24 20:55:00 88 /min [facility] Oxygen saturation in Arterial blood by Pulse oximetry 2023-01-24 20:55:00 93 /min [facility] Respiratory rate 2023-01-24 20:52:00 22 /min [facility] Systolic blood pressure 2023-01-24 20:30:00 128 mm[Hg] [facility] Diastolic blood pressure 2023-01-24 20:30:00 69 mm[Hg] [facility] Body temperature 2023-01-24 17:24:00 36.67 Tia [facility] Body height 2023-01-24 17:24:00 177.8 cm [facility] Body weight 2023-01-24 17:24:00 72.576 kg [facility] BMI 2023-01-24 17:24:00 22.96 kg/m2 [facility] Systolic blood pressure 2023-01-24 01:00:00 129 mm[Hg] [facility] Diastolic blood pressure 2023-01-24 01:00:00 76 mm[Hg] [facility] Heart rate 2023-01-24 01:00:00 77 /min [facility] Respiratory rate 2023-01-24 01:00:00 18 /min [facility] Oxygen saturation in Arterial blood by Pulse oximetry 2023-01-24 01:00:00 99 /min [facility] Body temperature 2023-01-24 00:02:00 35.61 Tia warm blankets applied [facility] Body weight 2023-01-24 00:02:00 58.968 kg [facility] BMI 2023-01-24 00:02:00 18.65 kg/m2 [facility] Heart rate 2023-01-22 23:46:00 93 /min [facility] Respiratory rate 2023-01-22 23:46:00 20 /min [facility] Oxygen saturation in Arterial blood by Pulse oximetry 2023-01-22 23:46:00 100 /min [facility] Systolic blood pressure 2023-01-22 23:21:00 146 mm[Hg] [facility] Diastolic blood pressure 2023-01-22 23:21:00 93 mm[Hg] [facility] Body temperature 2023-01-22 23:21:00 36.72 Tia [facility] Body weight 2023-01-22 23:21:00 58.968 kg [facility] BMI 2023-01-22 23:21:00 18.65 kg/m2 [facility] Heart rate 2023-01-21 21:57:00 84 /min [facility] Respiratory rate 2023-01-21 21:57:00 18 /min [facility] Oxygen saturation in Arterial blood by Pulse oximetry 2023-01-21 21:57:00 97 /min [facility] Systolic blood pressure 2023-01-21 21:00:00 103 mm[Hg] [facility] Diastolic blood pressure 2023-01-21 21:00:00 61 mm[Hg] [facility] Body temperature 2023-01-21 19:24:00 36.56 Tia [facility] Body weight 2023-01-21 19:24:00 58.968 kg [facility] BMI 2023-01-21 19:24:00 18.65 kg/m2 [facility] Systolic blood pressure 2023-01-19 21:00:00 111 mm[Hg] [facility] Diastolic blood pressure 2023-01-19 21:00:00 64 mm[Hg] [facility] Heart rate 2023-01-19 21:00:00 85 /min [facility] Body temperature 2023-01-19 21:00:00 36.56 Tia [facility] Respiratory rate 2023-01-19 21:00:00 17 /min [facility] Oxygen saturation in Arterial blood by Pulse oximetry 2023-01-19 21:00:00 98 /min [facility] Body height 2023-01-19 06:22:00 177.8 cm [facility] Body weight 2023-01-19 06:22:00 58.968 kg [facility] BMI 2023-01-19 06:22:00 18.65 kg/m2 [facility] Systolic blood pressure 2023-01-17 12:05:00 116 mm[Hg] [facility] Diastolic blood pressure 2023-01-17 12:05:00 69 mm[Hg] [facility] Heart rate 2023-01-17 12:05:00 100 /min [facility] Respiratory rate 2023-01-17 12:05:00 24 /min [facility] Oxygen saturation in Arterial blood by Pulse oximetry 2023-01-17 12:05:00 93 /min [facility] Body temperature 2023-01-17 10:59:00 35.39 Tia [facility] Body height 2023-01-17 10:59:00 177.8 cm [facility] Body weight 2023-01-17 10:59:00 58.968 kg [facility] BMI 2023-01-17 10:59:00 18.65 kg/m2 [facility] Systolic blood pressure 2023-01-07 19:38:00 122 mm[Hg] [facility] Diastolic blood pressure 2023-01-07 19:38:00 86 mm[Hg] [facility] Heart rate 2023-01-07 19:38:00 110 /min [facility] Respiratory rate 2023-01-07 19:38:00 16 /min [facility] Body height 2023-01-07 19:38:00 177.8 cm [facility] Body weight 2023-01-07 19:38:00 59.966 kg [facility] BMI 2023-01-07 19:38:00 18.97 kg/m2 [facility] Systolic blood pressure 2022-12-26 18:00:00 118 mm[Hg] [facility] Diastolic blood pressure 2022-12-26 18:00:00 79 mm[Hg] [facility] Heart rate 2022-12-26 18:00:00 93 /min [facility] Respiratory rate 2022-12-26 18:00:00 20 /min [facility] Oxygen saturation in Arterial blood by Pulse oximetry 2022-12-26 18:00:00 95 /min [facility] Body temperature 2022-12-26 15:49:00 36.11 Tia [facility] Body height 2022-12-26 15:49:00 177.8 cm [facility] Body weight 2022-12-26 15:49:00 72.576 kg [facility] BMI 2022-12-26 15:49:00 22.96 kg/m2 [facility] Respiratory rate 2022-12-12 16:45:00 18 /min [facility] Oxygen saturation in Arterial blood by Pulse oximetry 2022-12-12 16:45:00 99 /min [facility] Systolic blood pressure 2022-12-12 16:11:00 135 mm[Hg] [facility] Diastolic blood pressure 2022-12-12 16:11:00 80 mm[Hg] [facility] Heart rate 2022-12-12 16:11:00 77 /min [facility] Body temperature 2022-12-12 16:11:00 35.89 Tia [facility] Body weight 2022-12-12 08:50:00 65 kg [facility] BMI 2022-12-12 08:50:00 20.56 kg/m2 [facility] Body height 2022-12-11 04:23:00 177.8 cm [facility] Heart rate 2022-12-04 12:33:00 95 /min [facility] Respiratory rate 2022-12-04 12:33:00 17 /min [facility] Oxygen saturation in Arterial blood by Pulse oximetry 2022-12-04 12:33:00 98 /min [facility] Systolic blood pressure 2022-12-04 12:20:00 125 mm[Hg] [facility] Diastolic blood pressure 2022-12-04 12:20:00 74 mm[Hg] [facility] Body temperature 2022-12-04 12:20:00 36.61 Tia [facility] Body height 2022-12-02 05:16:00 177.8 cm [facility] Body weight 2022-12-02 05:16:00 72.576 kg [facility] BMI 2022-12-02 05:16:00 22.96 kg/m2 [facility] Systolic blood pressure 2022-12-01 13:00:00 114 mm[Hg] [facility] Diastolic blood pressure 2022-12-01 13:00:00 78 mm[Hg] [facility] Heart rate 2022-12-01 13:00:00 88 /min [facility] Respiratory rate 2022-12-01 13:00:00 20 /min [facility] Oxygen saturation in Arterial blood by Pulse oximetry 2022-12-01 13:00:00 98 /min [facility] Body temperature 2022-12-01 10:13:00 36.67 Tia [facility] Body height 2022-12-01 10:13:00 177.8 cm [facility] Body weight 2022-12-01 10:13:00 72.576 kg [facility] BMI 2022-12-01 10:13:00 22.96 kg/m2 [facility] Systolic blood pressure 2022-11-28 17:00:00 154 mm[Hg] [facility] Diastolic blood pressure 2022-11-28 17:00:00 106 mm[Hg] [facility] Heart rate 2022-11-28 17:00:00 87 /min [facility] Respiratory rate 2022-11-28 17:00:00 23 /min [facility] Oxygen saturation in Arterial blood by Pulse oximetry 2022-11-28 17:00:00 96 /min [facility] Body temperature 2022-11-28 16:00:00 36.78 Tia [facility] Body weight 2022-11-27 12:00:00 67.132 kg [facility] BMI 2022-11-27 12:00:00 21.24 kg/m2 [facility] Body height 2022-11-27 08:39:00 177.8 cm [facility] Systolic blood pressure 2022-11-19 10:48:00 152 mm[Hg] [facility] Diastolic blood pressure 2022-11-19 10:48:00 88 mm[Hg] [facility] Heart rate 2022-11-19 10:48:00 92 /min [facility] Respiratory rate 2022-11-19 10:48:00 16 /min [facility] Oxygen saturation in Arterial blood by Pulse oximetry 2022-11-19 10:48:00 98 /min [facility] Body temperature 2022-11-19 08:20:00 36.22 Tia [facility] Body height 2022-11-19 08:20:00 177.8 cm [facility] Body weight 2022-11-19 08:20:00 67.132 kg [facility] BMI 2022-11-19 08:20:00 21.24 kg/m2 [facility] Systolic blood pressure 2022-11-19 02:18:57 152 mm[Hg] [facility] Diastolic blood pressure 2022-11-19 02:18:57 91 mm[Hg] [facility] Heart rate 2022-11-19 02:18:57 109 /min [facility] Respiratory rate 2022-11-19 02:18:57 22 /min [facility] Oxygen saturation in Arterial blood by Pulse oximetry 2022-11-19 02:18:57 95 /min [facility] Body temperature 2022-11-19 02:17:11 36.78 Tia [facility] Body height 2022-11-19 00:52:00 177.8 cm [facility] Body weight 2022-11-19 00:52:00 67.132 kg [facility] BMI 2022-11-19 00:52:00 21.24 kg/m2 [facility] Heart rate 2022-11-11 17:35:00 75 /min [facility] Respiratory rate 2022-11-11 17:35:00 18 /min [facility] Oxygen saturation in Arterial blood by Pulse oximetry 2022-11-11 17:35:00 95 /min [facility] Systolic blood pressure 2022-11-11 17:25:00 130 mm[Hg] [facility] Diastolic blood pressure 2022-11-11 17:25:00 71 mm[Hg] [facility] Body temperature 2022-11-11 17:25:00 35.94 Tia [facility] Body weight 2022-11-11 09:34:00 77.52 kg [facility] BMI 2022-11-11 09:34:00 24.52 kg/m2 [facility] Body height 2022-11-09 19:30:00 177.8 cm [facility] Systolic blood pressure 2020-12-29 15:24:00 96 mm[Hg] [facility] Diastolic blood pressure 2020-12-29 15:24:00 66 mm[Hg] [facility] Heart rate 2020-12-29 15:24:00 71 /min [facility] Body temperature 2020-12-29 15:24:00 36.33 Tia [facility] Body weight 2020-12-29 15:24:00 72.576 kg [facility] BMI 2020-12-29 15:24:00 22.96 kg/m2 [facility] Oxygen saturation in Arterial blood by Pulse oximetry 2020-12-29 15:24:00 95 /min [facility] Systolic blood pressure 2020-12-18 19:07:00 117 mm[Hg] [facility] Diastolic blood pressure 2020-12-18 19:07:00 77 mm[Hg] [facility] Heart rate 2020-12-18 19:07:00 77 /min [facility] Body temperature 2020-12-18 19:07:00 36.22 Tia [facility] Respiratory rate 2020-12-18 19:07:00 18 /min [facility] Body height 2020-12-18 19:07:00 177.8 cm [facility] Body weight 2020-12-18 19:07:00 73.211 kg [facility] BMI 2020-12-18 19:07:00 23.16 kg/m2 [facility] Systolic blood pressure 2020-12-12 18:00:00 109 mm[Hg] [facility] Diastolic blood pressure 2020-12-12 18:00:00 74 mm[Hg] [facility] Heart rate 2020-12-12 18:00:00 78 /min [facility] Respiratory rate 2020-12-12 18:00:00 20 /min [facility] Oxygen saturation in Arterial blood by Pulse oximetry 2020-12-12 18:00:00 96 /min [facility] Body temperature 2020-12-12 16:33:00 37.28 Tia [facility] Body height 2020-12-12 16:33:00 177.8 cm [facility] Body weight 2020-12-12 16:33:00 70.308 kg [facility] BMI 2020-12-12 16:33:00 22.24 kg/m2 [facility] Systolic blood pressure 2020-12-08 18:55:00 125 mm[Hg] [facility] Diastolic blood pressure 2020-12-08 18:55:00 82 mm[Hg] [facility] Heart rate 2020-12-08 18:55:00 75 /min [facility] Body temperature 2020-12-08 18:55:00 36.56 Tia [facility] Respiratory rate 2020-12-08 18:55:00 16 /min [facility] Body height 2020-12-08 18:55:00 177.8 cm [facility] Body weight 2020-12-08 18:55:00 73.12 kg [facility] BMI 2020-12-08 18:55:00 23.13 kg/m2 [facility] Systolic blood pressure 2019-05-04 04:21:00 127 mm[Hg] [facility] Diastolic blood pressure 2019-05-04 04:21:00 86 mm[Hg] [facility] Heart rate 2019-05-04 04:21:00 99 /min [facility] Respiratory rate 2019-05-04 04:21:00 26 /min [facility] Body height 2019-05-04 04:21:00 177.8 cm [facility] Body weight 2019-05-04 04:21:00 72.576 kg [facility] BMI 2019-05-04 04:21:00 22.96 kg/m2 [facility] Oxygen saturation in Arterial blood by Pulse oximetry 2019-05-04 04:21:00 99 /min [facility] Systolic blood pressure 2019-05-04 04:21:00 127 mm[Hg] [facility] Diastolic blood pressure 2019-05-04 04:21:00 86 mm[Hg] [facility] Heart rate 2019-05-04 04:21:00 99 /min [facility] Respiratory rate 2019-05-04 04:21:00 26 /min [facility] Body height 2019-05-04 04:21:00 177.8 cm [facility] Body weight 2019-05-04 04:21:00 72.576 kg [facility] BMI 2019-05-04 04:21:00 22.96 kg/m2 [facility] Oxygen saturation in Arterial blood by Pulse oximetry 2019-05-04 04:21:00 99 /min [facility] Procedures Procedure Date / Time Performed Performing Clinician Source MEDICATION CORRESPONDENCE 2023-07-08 05:01:00 Do ctor Unassigned, [place] [facility] CONSENT/REFUSAL FOR DIAGNOSIS AND TREATMENT 2023-03-01 19:49:30 Doctor Unassigned, [place] [facility] TRANSTHORACIC ECHO (TTE) COMPLETE W/ CONTRAST 2023-02-16 13:56:56 Dedrick Toth [facility] TROPONIN I 2023-02-16 11:32:00 Dedirck Toth [facility] COMP. METABOLIC PANEL ([id number]) 2023-02-16 11:32:00 Dedrick Toth [facility] CBC WITH DIFF 2023-02-16 11:32:00 Dedrick Toth Un [facility] N-TERMINAL PRO-BNP 2023-02-16 11:32:00 Dedrick Toth [facility] URINALYSIS 2023-02-15 21:18:00 [facility] RHYTHM STRIP 2023-02-15 20:15:35 Francisca Bryant [facility] XR CHEST 1 VW 2023-02-15 20:14:30 [facility] AC PANEL 21 + LACTIC ACID 2023-02-15 20:02:00 Francisca Bryant [facility] MAGNESIUM 2023-02-15 20:01:00 [facility] 2023-02-15 20:01:00 Francisca Bryant [facility] COMP. METABOLIC PANEL ([id number]) 2023-02-15 20:01:00 Francisca Bryant [facility] CBC WITH DIFF 2023-02-15 20:01:00 Francisca Bryant [facility] ASSIGNMENT OF BENEFITS 2023-02-07 19:52:07 Docto r Unassigned, [place] [facility] CONSENT/REFUSAL FOR DIAGNOSIS AND TREATMENT 2023-02-07 19:51:03 Doctor Unassigned, [place] [facility] CONSENT/REFUSAL FOR DIAGNOSIS AND TREATMENT 2023-02-04 19:51:56 Doctor Unassigned, [place] [facility] TROPONIN I 2023-01-31 20:21:00 Rachael Flowers [facility] COMP. METABOLIC PANEL ([id number]) 2023-01-31 20:21:00 Rachael Flowers [facility] ETHANOL 2023-01-31 20:21:00 Rachael Flowers [facility] CBC WITH DIFF 2023-01-31 20:21:[address] [facility] N-TERMINAL PRO-BNP 2023-01-31 20:21:00 Fernando Flowers [facility] CONSENT/REFUSAL FOR DIAGNOSIS AND TREATMENT 2023-01-31 18:39:05 Doctor Unassigned, [place] [facility] CONSENT/REFUSAL FOR DIAGNOSIS AND TREATMENT 2023-01-31 15:54:08 Doctor Unassigned, [place] [facility] CONSENT/REFUSAL FOR DIAGNOSIS AND TREATMENT 2023-01-31 14:29:18 Doctor Unassigned, [place] [facility] ACUTE CARE VENOUS BLOOD GAS 2023-01-27 10:45:00 Bessie Oswald [facility] TROPONIN I 2023-01-27 10:16:00 Bessie Oswald [facility] BASIC METABOLIC PANEL (NA, K, CL, CO2, GLUCOSE, BUN, CREATININE, CA) 2023-01-27 10:16:00 Bessie Oswald [facility] CBC WITH DIFF 2023-01-27 10:16:00 JaBessie elaine [facility] N-TERMINAL PRO-BNP 2023-01-27 10:16:00 Bessie Oswald [facility] URINALYSIS 2023-01-24 20:23:00 Stephanie Almonte [facility] CT HEAD WO CONTRAST 2023-01-24 19:38:00 Stephanie Almonte [facility] AC ABG + LACTIC ACID 2023-01-24 18:37:00 Stephanie Almonte [facility] AMMONIA, PLASMA 2023-01-24 18:19:00 Stephanie Almonte as [facility] RAPID STREP SCREEN FOR GROUP A 2023-01-24 18:19:00 Stephanie Almonte [facility] COVID-19 (ID NOW RAPID TESTING) 2023-01-24 18:19:00 Stephanie Almonte [facility] TROPONIN I 2023-01-24 17:52:00 Stephanie Almonte [facility] COMP. METABOLIC PANEL ([id number]) 2023-01-24 17:52:00 Stephanie Almonte [facility] ETHANOL 2023-01-24 17:52:00 Stephanie Almonte [facility] CBC WITH DIFF 2023-01-24 17:52:00 Stephanie Almonte [facility] N-TERMINAL PRO-BNP 2023-01-24 17:52:00 [facility] COMP. METABOLIC PANEL ([id number]) 2023-01-21 20:58:00 Singer [facility] TROPONIN I 2023-01-21 20:05:00 [facility] CBC WITH DIFF 2023-01-21 20:05:00 Singer Louis [facility] N-TERMINAL PRO-BNP 2023-01-21 20:05:00 Singer [facility] AC PANEL 21 + LACTIC ACID 2023-01-19 08:31:00 Zechariah Hackett [facility] D-DIMER 2023-01-19 08:17:00 Agapito Hackett [facility] BASIC METABOLIC PANEL (NA, K, CL, CO2, GLUCOSE, BUN, CREATININE, CA) 2023-01-19 08:15:00 Iza Varma [facility] CBC WITH DIFF 2023-01-19 08:15:00 Iza Varma [facility] N-TERMINAL PRO-BNP 2023-01-19 08:15:00 Agapito Hackett [facility] EKG-12 LEAD 2023-01-17 12:23:30 Marisol Devlin [facility] XR CHEST 1 VW 2023-01-17 11:25:05 [facility]23-01-17 11:04:00 Marisol Devlin [facility] COMP. METABOLIC PANEL ([id number]) 2023-01-17 11:04:00 Marisol Devlin [facility] CBC WITH DIFF 2023-01-17 11:04:[address] [facility] N-TERMINAL PRO-BNP 2023-01-17 11:04:00 Marisol Devlin [facility] COMP. METABOLIC PANEL ([id number]) 2022-12-26 17:23:00 Iza Varma [facility] XR CHEST 1 VW 2022-12-26 16:39:21 [facility] URINE DRUG (IMMUNOASSAY) - COMPREHENSIVE DRUG SCREEN 2022-12-26 16:29:00 Iza Varma [facility] URINALYSIS 2022-12-26 16:29:00 Iza Varma [facility] CBC WITH DIFF 2022-12-26 16:28:00 [facility] MAGNESIUM 2022-12-12 08:55:00 Travis Zeng [facility] BASIC METABOLIC PANEL (NA, K, CL, CO2, GLUCOSE, BUN, CREATININE, CA) 2022-12-12 08:55:00 Travis Zeng [facility] LIPID PANEL ([id number])(TOTAL CHOLESTEROL, TRIGLYCERIDES, HDL) 2022-12-12 08:55:00 Travis Zeng [facility] N-TERMINAL PRO-BNP 2022-12-12 08:55:00 Travis Zeng [facility] MAGNESIUM 2022-12-11 08:30:[address] [facility] OSMOLALITY, SERUM OR PLASMA 2022-12-11 08:30:00 Dedrick Toth [facility] FREE T4 2022-12-11 08:30:[address] [facility] BASIC METABOLIC PANEL (NA, K, CL, CO2, GLUCOSE, BUN, CREATININE, CA) 2022-12-11 08:30:00 Dedrick Toth [facility] CBC WITH DIFF 2022-12-11 08:30:00 [facility] 2022-12-11 08:30:00 Dedrick Toth [facility] OSMOLALITY URINE 2022-12-11 03:24:00 Dedrick Toth [facility] SODIUM, URINE RANDOM 2022-12-11 03:24:00 Gunnar Toth [facility] URINALYSIS 2022-12-11 01:15:00 Louis Hong [facility] HB ECG ROUTINE & RHYTHM STRIP 2022-12-11 00:38:04 Louis Hong [facility] CT HEAD WO CONTRAST 2022-12-11 00:32:23 Kameron Hong [facility] XR CHEST 1 VW 2022-12-11 00:29:20 Singer [facility] TROPONIN I 2022-12-11 00:08:00 [facility] COMP. METABOLIC PANEL ([id number]) 2022-12-11 00:08:00 Louis Hong [facility] ETHANOL 2022-12-11 00:08:00 Louis Hong [facility] CBC WITH DIFF 2022-12-11 00:08:00 Louis Hong [facility] N-TERMINAL PRO-BNP 2022-12-11 00:08:00 Louis Hong [facility] LACTIC ACID WHOLE BLOOD 2022-12-11 00:03:00 Angelita Hong [facility] AUTHORIZATION FOR RELEASE OF PHI 2022-12-09 05:01:00 Doctor Unassigned, [place] [facility] BASIC METABOLIC PANEL (NA, K, CL, CO2, GLUCOSE, BUN, CREATININE, CA) 2022-12-04 10:43:00 Ben [facility] CBC WITH DIFF 2022-12-04 10:43:00 Clive Contreras [facility] OSMOLALITY URINE 2022-12-03 17:05:00 Lisseth De Santiago [facility] SODIUM, URINE RANDOM 2022-12-03 17:05:00 Haley De Santiago [facility] MAGNESIUM 2022-12-03 10:20:00 Clive Contreras [facility] BASIC METABOLIC PANEL (NA, K, CL, CO2, GLUCOSE, BUN, CREATININE, CA) 2022-12-03 10:20:00 Ben [facility] CBC WITH DIFF 2022-12-03 10:20:00 Clive Contreras [facility] BASIC METABOLIC PANEL (NA, K, CL, CO2, GLUCOSE, BUN, CREATININE, CA) 2022-12-02 05:27:00 Carlo Maik [facility] CONSENT/REFUSAL FOR DIAGNOSIS AND TREATMENT 2022-12-02 05:08:30 Doctor Unassigned, [place] [facility] HOSPITAL ADMISSION 2022-12-02 05:01:00 Doctor Un assigned, [place] [facility] COVID-19 (ID NOW RAPID TESTING) 2022-12-01 13:01:00 Ernesto Piper [facility] XR CHEST 1 VW 2022-12-01 12:40:[address] [facility] EKG-12 LEAD 2022-12-01 12:17:26 Marisol Devlin [facility] ACUTE CARE ARTERIAL BLOOD GAS 2022-12-01 12:06:00 Marisol Devlin [facility] TROPONIN I 2022-12-01 11:51:00 Marisol Devlin [facility] BASIC METABOLIC PANEL (NA, K, CL, CO2, GLUCOSE, BUN, CREATININE, CA) 2022-12-01 11:51:00 Marisol Devlin [facility] CBC WITH DIFF 2022-12-01 11:51:[address] [facility] BASIC METABOLIC PANEL (NA, K, CL, CO2, GLUCOSE, BUN, CREATININE, CA) 2022-11-28 16:51:00 Leila Chapa [facility] URIC ACID 2022-11-28 08:14:00 Reyna [facility] THYROID STIMULATING HORMONE 2022-11-28 08:14:00 Reyna [facility] BASIC METABOLIC PANEL (NA, K, CL, CO2, GLUCOSE, BUN, CREATININE, CA) 2022-11-28 08:14:00 Leila Chapa [facility] CBC WITH DIFF 2022-11-28 08:14:00 María Diaz [facility] BASIC METABOLIC PANEL (NA, K, CL, CO2, GLUCOSE, BUN, CREATININE, CA) 2022-11-28 04:16:00 María Diaz [facility] BASIC METABOLIC PANEL (NA, K, CL, CO2, GLUCOSE, BUN, CREATININE, CA) 2022-11-28 00:33:00 Leila Chapa [facility] BASIC METABOLIC PANEL (NA, K, CL, CO2, GLUCOSE, BUN, CREATININE, CA) 2022-11-27 19:55:00 María Diaz [facility] MRSA / MSSA SCREEN BY ERIKA NARANJO 2022-11-27 09:21:00 María Diaz [facility] OSMOLALITY, SERUM OR PLASMA 2022-11-27 09:10:00 María Diaz [facility] OSMOLALITY URINE 2022-11-27 09:04:[address] [facility] BASIC METABOLIC PANEL (NA, K, CL, CO2, GLUCOSE, BUN, CREATININE, CA) 2022-11-27 09:04:00 María Diaz [facility] URINE DRUG (IMMUNOASSAY) - COMPREHENSIVE DRUG SCREEN 2022-11-27 09:04:00 María Diaz [facility] URINALYSIS 2022-11-27 09:04:00 María Diaz [facility] CREATININE, URINE RANDOM 2022-11-27 09:04:00 Ben Diaz [facility] SODIUM, URINE RANDOM 2022-11-27 09:04:00 María Diaz [facility] XR CHEST 1 VW 2022-11-27 06:15:54 [facility] MAGNESIUM 2022-11-27 05:33:00 María Diaz [facility] TROPONIN I 2022-11-27 05:33:00 Bessie Oswald [facility] COMP. METABOLIC PANEL ([id number]) 2022-11-27 05:33:00 Bessie Oswald [facility] ETHANOL 2022-11-27 05:33:00 Bessie Oswald [facility] CBC WITH DIFF 2022-11-27 05:33:00 Bessie Oswald [facility] GLYCOSYLATED HEMOGLOBIN (A1C) 2022-11-27 05:33:00 Leila Chapa [facility] N-TERMINAL PRO-BNP 2022-11-27 05:33:00 Bessie Oswald [facility] HB ECG ROUTINE & RHYTHM STRIP 2022-11-27 05:31:54 Bessie Oswald [facility] COMP. METABOLIC PANEL ([id number]) 2022-11-19 08:44:00 Iza Varma [facility] CBC WITH DIFF 2022-11-19 08:44:00 [facility] N-TERMINAL PRO-BNP 2022-11-19 08:44:00 Iza Varma [facility] BASIC METABOLIC PANEL (NA, K, CL, CO2, GLUCOSE, BUN, CREATININE, CA) 2022-11-11 10:52:00 Iza Eden [facility] CBC WITH DIFF 2022-11-11 10:52:00 Iza Eden [facility] BASIC METABOLIC PANEL (NA, K, CL, CO2, GLUCOSE, BUN, CREATININE, CA) 2022-11-11 02:16:00 Guanako [facility] BASIC METABOLIC PANEL (NA, K, CL, CO2, GLUCOSE, BUN, CREATININE, CA) 2022-11-10 22:45:00 [place]ako [facility] BASIC METABOLIC PANEL (NA, K, CL, CO2, GLUCOSE, BUN, CREATININE, CA) 2022-11-10 17:27:00 [place] [facility] BASIC METABOLIC PANEL (NA, K, CL, CO2, GLUCOSE, BUN, CREATININE, CA) 2022-11-10 11:49:00 [place]ako [facility] MAGNESIUM 2022-11-10 07:14:00 Travis Zeng [facility] BASIC METABOLIC PANEL (NA, K, CL, CO2, GLUCOSE, BUN, CREATININE, CA) 2022-11-10 07:14:00 Gu[place]ako [facility] CBC WITH DIFF 2022-11-10 07:14:00 [place] [facility] XR CHEST 1 VW 2022-11-09 07:53:[address] [facility] LIPASE 2022-11-09 07:53:00 Marisol Devlin [facility] TROPONIN I 2022-11-09 07:53:00 Marisol Devlin [facility] COMP. METABOLIC PANEL ([id number]) 2022-11-09 07:53:00 Marisol Devlin [facility] CBC WITH DIFF 2022-11-09 07:53:[address] [facility] N-TERMINAL PRO-BNP 2022-11-09 07:53:00 Marisol Devlin [facility] ACUTE CARE ARTERIAL BLOOD GAS 2022-11-09 07:50:00 Marisol Devlin [facility] HB ECG ROUTINE & RHYTHM STRIP 2022-11-09 07:39:47 Marisol Devlin [facility] ASSIGNMENT OF BENEFITS 2021-05-20 19:26:54 Duran eduardo Unassigned, [place] [facility] POCT URINALYSIS AUTO 2020-12-18 19:04:00 Zeus Turner [facility] CT ABDOMEN PELVIS W CONTRAST 2020-12-12 17:25:03 Francisca Bryant [facility] BASIC METABOLIC PANEL (NA, K, CL, CO2, GLUCOSE, BUN, CREATININE, CA) 2020-12-12 16:47:00 Francisca Bryant [facility] CBC WITH DIFF 2020-12-12 16:47:00 [facility] 2020-12-12 16:47:00 [facility] NOTICE OF PRIVACY PRACTICES 2020-12-12 16:28:57 Doctor Unassigned, [place] [facility] CONSENT/REFUSAL FOR DIAGNOSIS AND TREATMENT 2020-12-12 16:28:23 Doctor Unassigned, [place] [facility] POCT URINALYSIS AUTO 2020-12-08 18:56:00 Jeanette Mcdaniel [facility] CONSENT/REFUSAL FOR DIAGNOSIS AND TREATMENT 2020-12-08 18:26:17 Doctor Unassigned, [place] [facility] ASSIGNMENT OF BENEFITS 2020-12-08 18:25:58 Duran eduardo Unassigned, [place] [facility] AUTHORIZATION FOR RELEASE OF PHI 2020-02-20 05:01:00 Doctor Unassigned, [place] [facility] NOTICE OF PRIVACY PRACTICES 2019-05-04 04:10:29 Doctor Unassigned, [place] [facility] CONSENT/REFUSAL FOR DIAGNOSIS AND TREATMENT 2019-05-04 04:10:09 Doctor Unassigned, [place] [facility] Encounters Start Date/Time End Date/Time Encounter Type Admission Type Attending [facility] Care Facility Care Department Encounter ID Source 2021-07-19 08:46:33 Emergency [facility] [id number] [facility] 2023-07-21 10:00:00 2023-07-21 10:00:00 Outpatient R AUSTYN MARYNOMI CLIFTON [facility] [id number] [facility] 2023-07-15 00:00:00 2023-07-15 00:00:00 Case Management Nomi Mary [facility] 1.20.114 [id number] [facility] 2023-07-08 00:00:00 2023-07-08 00:00:00 [facility] 1.2.114 [id number] [facility] 2023-07-08 00:00:00 2023-07-08 00:00:00 Orders Only Doctor Unassigned, [place] [facility] 1.20.114 [id number] [facility] 2023-04-22 00:00:00 2023-04-22 00:00:00 Outpatient R MARY YENNIVLADISLAVYENNI CLIFTONAKTim [facility] [id number] [facility] 2023-04-19 10:00:00 2023-04-19 10:53:24 Outpatient R NOMI [facility] [id number] [facility] 2023-04-19 10:00:00 2023-04-19 10:53:24 Office Visit Mathew Yenniwvtim [facility] 1.2.114 [id number] [id number] [facility] 2023-04-19 00:00:00 2023-04-19 00:00:00 Patient Outreach Marika Monge 1.2.114 [id number] [id number] [facility] 2023-03-01 16:30:00 2023-03-01 17:00:00 [facility] [id number] [id number] [id number] [facility] 2023-03-01 16:30:00 2023-03-01 16:30:00 Out[facility] [facility] [id number] [facility] 2023-03-01 00:00:00 2023-03-01 00:00:00 Orders Only Doctor Unassigned, [place] [facility] 1..114 350.1.13.10 4.2.7.2.686 [id number] 009 [id number] [facility] 2023-03-01 00:00:00 2023-03-01 00:00:00 Refill Mily Goodwin [facility] 1.84.114 350.1.13.10 4.2.7.2.686 [id number] 044 [id number] [facility] 2023-02-21 00:00:00 2023-02-21 00:00:00 Transition of Care Taylor Frye 1.2114 350.1.13.10 4.2.7.2.686 [id number] [facility] 2023-02-15 14:41:00 2023-02-18 16:11:00 Inpatient X TRAVIS ZENG [facility] [id number] [facility] 2023-02-15 14:41:00 2023-02-18 16:11:00 Hospital Encounter Iza Varma Sandra J Oville, Jelani [facility] 1.2.114 350.1.13.10 4.2.7.2.686 [id number] 081 [id number] [facility] 2023-02-07 14:30:00 2023-02-07 16:01:00 Emergency X PRADIP AUSTIN [facility] ERT [id number] [facility] 2023-02-07 14:30:00 2023-02-07 16:01:00 Emergency Pradip Austin [facility] 1.2.840.114 350.1.13.10 4.2.7.2.686 [id number] [facility] 2023-02-07 10:20:00 2023-02-07 10:20:00 Outpatient CARL ALDRIDGE CHRISTINE [facility] [id number] [facility] 2023-02-05 14:53:00 2023-02-05 16:10:00 Emergency X CHOHERMINIA [facility] ERT [id number] [facility] 2023-02-05 14:53:00 2023-02-05 16:10:00 Emergency Herminia Cho [facility] 1.2.840.114 350.1.13.10 4.2.7.2.686 [id number] 084 [id number] [facility] 2023-02-04 15:26:00 2023-02-04 16:25:00 Emergency X FRANCISCA BRYANT [facility] ERT [id number] [facility] 2023-02-04 15:26:00 2023-02-04 16:25:00 Emergency Francisca Bryant [facility] 1.2.840.114 350.1.13.10 4.2.7.2.686 [id number] 084 [id number] [facility] 2023-02-03 17:46:00 2023-02-03 18:47:00 Emergency X LOUIS HONG [facility] ERT [id number] [facility] 2023-02-03 17:46:00 2023-02-03 18:47:00 Emergency X LOUIS HONG [facility] ERT [id number] [facility] 2023-02-03 17:46:00 2023-02-03 18:47:00 Emergency Louis Hong [facility] 1.2.840.114 350.1.13.10 4.2.7.2.686 [id number] 084 [id number] [facility] 2023-02-03 12:43:00 2023-02-03 15:04:00 Emergency Bessie Oswald [facility] 1.2.840.114 350.1.13.10 4.2.7.2.686 [id number] 084 [id number] [facility] 2023-02-02 16:49:00 2023-02-02 18:10:00 Emergency X LOUIS HONG [facility] ERT [id number] [facility] 2023-02-02 16:49:00 2023-02-02 18:10:00 Emergency Louis Hong [facility] 1.2.840.114 350.1.13.10 4.2.7.2.686 [id number] 084 [id number] [facility] 2023-01-31 13:55:00 2023-01-31 16:50:00 Emergency X RACHAEL FLOWERS [facility] ERT [id number] [facility] 2023-01-31 13:55:00 2023-01-31 16:50:00 Emergency X RACHAEL FLOWERS [facility] ERT [id number] [facility] 2023-01-31 13:55:00 2023-01-31 16:50:00 Emergency Rachael Flowers [facility] 1.2.840.114 350.1.13.10 4.2.7.2.686 [id number] 084 [id number] [facility] 2023-01-31 11:11:00 2023-01-31 12:12:00 Emergency X LEOBARDO SLOAN [facility] ERT [id number] [facility] 2023-01-31 11:11:00 2023-01-31 12:12:00 Emergency Leobardo Sloan [facility] 1.2.840.114 350.1.13.10 4.2.7.2.686 [id number] 084 [id number] [facility] 2023-01-31 09:51:00 2023-01-31 10:16:00 Emergency [facility] 1.2.840.114 350.1.13.10 4.2.7.2.686 [id number] 084 [id number] [facility] 2023-01-29 08:08:00 2023-01-29 10:00:00 Emergency X HERMINIA CHO [facility] ERT [id number] [facility] 2023-01-29 08:08:00 2023-01-29 10:00:00 Emergency Herminia Cho [facility] 1.2.840.114 350.1.13.10 4.2.7.2.686 [id number] 084 [id number] [facility] 2023-01-27 04:50:00 2023-01-27 07:03:00 Emergency X SIMONEBESSIE Chandler [facility] ERT [id number] [facility] 2023-01-27 04:50:00 2023-01-27 07:03:00 Emergency Bessie Oswald [facility] 1.2.840.114 350.1.13.10 4.2.7.2.686 [id number] 084 [id number] [facility] 2023-01-27 00:00:00 2023-01-27 00:00:00 Telephone Nomi Mary [facility] 1.2.840.114 350.1.13.10 4.2.7.2.686 [id number] 085 [id number] [facility] 2023-01-24 12:28:00 2023-01-24 16:16:00 Emergency X STEPHANIE ALMONTE [facility] ERT [id number] [facility] 2023-01-24 12:28:00 2023-01-24 16:16:00 Emergency Stephanie Almonte [facility] 1.2.840.114 350.1.13.10 4.2.7.2.686 [id number] 084 [id number] [facility] 2023-01-23 19:02:00 2023-01-23 20:36:00 Emergency X IZA VARMA [facility] ERT [id number] [facility] 2023-01-23 19:02:00 2023-01-23 20:36:00 Emergency Iza Varma [facility] 1.2.840.114 350.1.13.10 4.2.7.2.686 [id number] 084 [id number] [facility] 2023-01-22 18:24:00 2023-01-22 19:55:00 Emergency X IZA VARMA [facility] ERT [id number] [facility] 2023-01-22 18:24:00 2023-01-22 19:55:00 Emergency Iza Varma [facility] 1.2.840.114 350.1.13.10 4.2.7.2.686 [id number] 084 [id number] [facility] 2023-01-21 14:20:00 2023-01-21 18:14:00 Emergency LOUIS THOMPSON [facility] ERT [id number] [facility] 2023-01-21 14:20:00 2023-01-21 18:14:00 Emergency Louis [facility] 1.2.840.114 350.1.13.10 4.2.7.2.686 [id number] 084 [id number] [facility] 2023-01-20 00:00:00 2023-01-20 00:00:00 Transition of Care Taylor Frye 1.2.840.114 350.1.13.10 4.2.7.2.686 [id number] [facility] 2023-01-19 01:15:00 2023-01-19 19:40:00 Hospital Encounter [facility] , Kathia Varma, Iza Hackett, María Escobar [facility] 1.2.840.114 350.1.13.10 4.2.7.2.686 [id number] 080 [id number] [facility] 2023-01-17 05:57:00 2023-01-17 07:37:00 Emergency X MARISOL DEVLIN [facility] ERT [id number] [facility] 2023-01-17 05:57:00 2023-01-17 07:37:00 Emergency Marisol Devlin [facility] 1.2.840.114 350.1.13.10 4.2.7.2.686 [id number] 084 [id number] [facility] 2023-01-17 05:57:00 2023-01-17 07:37:00 Emergency X MARISOL DEVLIN [facility] ERT [id number] [facility] 2023-01-10 00:00:00 2023-01-10 00:00:00 Letter (Out) Herminia Oh [facility] 1..840.114 350.1.13.10 4.2.7.2.686 [id number] 092 [id number] [facility] 2023-01-07 14:30:00 2023-01-07 15:25:56 Outpatient R HERMINIA OH [facility] [id number] [facility] 2023-01-07 14:30:00 2023-01-07 15:25:56 Office Visit Herminia Oh [facility] 1.840.114 350.1.13.10 4.2.7.2.686 [id number] 092 [id number] [facility] 2022-12-26 10:50:00 2022-12-26 14:12:00 Emergency X IZA VARMA [facility] ERT [id number] [facility] 2022-12-26 10:50:00 2022-12-26 14:12:00 Emergency Iza Varma S [facility] 1.84.114 350.1.13.10 4.2.7.2.686 [id number] [facility] 2022-12-14 11:30:00 2022-12-14 11:30:00 Outpatient R NOMI MARY SHIAKTim [facility] [id number] [facility] 2022-12-14 00:00:00 2022-12-14 00:00:00 Transition of Care Taylor Frye [facility] 1.840.114 350.1.13.10 4.2.7.2.686 [id number] [facility] 2022-12-10 18:49:00 2022-12-12 14:35:00 Outpatient X TRAVIS ZENG [facility] [id number] [facility] 2022-12-10 18:49:00 2022-12-12 14:35:00 Hospital Encounter Louis Hong Mohammad A. Oville, Jelani [facility] 1.840.114 350.1.13.10 4.2.7.2.686 [id number] 081 [id number] [facility] 2022-12-10 00:00:00 2022-12-10 00:00:00 Case Management Nomi Mary [facility] 1.2.840.114 350.1.13.10 4.2.7.2.686 [id number] 085 [id number] [facility] 2022-12-10 00:00:00 2022-12-10 00:00:00 Transition of Care Cecy Caro 1.2.840.114 350.1.13.10 4.2.7.2.686 [id number] [facility] 2022-12-09 00:00:00 2022-12-09 00:00:00 Orders Only Doctor Unassigned, [place] [facility] 1.2.840.114 350.1.13.10 4.2.7.2.686 [id number] [id number] [facility] 2022-12-06 00:00:00 2022-12-06 00:00:00 Transition of Care Taylor Frye 1.2.840.114 350.1.13.10 4.2.7.2.686 [id number] [facility] 2022-12-02 00:13:00 2022-12-04 12:30:00 Hospital Encounter Carlo Maki, Abi Contreras, [facility] ([facility]) 1.2.840.114 350.1.13.10 4.2.7.2.686 [id number] [facility] 2022-12-01 05:32:00 2022-12-01 09:08:00 Emergency ERNESTO SHANE CHARLES [facility] ERT [id number] [facility] 2022-12-01 05:32:00 2022-12-01 09:08:00 Emergency Marisol Devlin Charles Davis, Elizabeth [facility] 1.2.840.114 350.1.13.10 4.2.7.2.686 [id number] 084 [id number] [facility] 2022-12-01 05:32:00 2022-12-01 09:08:00 Emergency U ERNESTO PIPER CHARLES [facility] ERT [id number] [facility] 2022-11-26 22:55:00 2022-11-28 13:50:00 Outpatient X DHARMESH LEILA [facility] [id number] [facility] 2022-11-26 22:55:00 2022-11-28 13:50:00 Hospital Encounter Bessie Oswald David Abdullah, Yaman [facility] 1.840.114 350.1.13.10 4.2.7.2.686 [id number] 080 [id number] [facility] 2022-11-19 02:17:00 2022-11-19 05:12:00 Emergency X VARMAIZA [facility] ERT [id number] [facility] 2022-11-19 02:17:00 2022-11-19 05:12:00 Emergency Sandro Varmaosbaldo Chandler [facility] 1.840.114 350.1.13.10 4.2.7.2.686 [id number] 084 [id number] [facility] 2022-11-18 18:52:00 2022-11-18 20:29:00 Emergency X FRANCISCA BRYANT [facility] ERT [id number] [facility] 2022-11-18 18:52:00 2022-11-18 20:29:00 Emergency Francisca Bryant [facility] 1.2840.114 350.1.13.10 4.2.7.2.686 [id number] 084 [id number] [facility] 2022-11-17 00:00:00 2022-11-17 00:00:00 Telephone Noim Mary [facility] 1.2840.114 350.1.13.10 4.2.7.2.686 [id number] [id number] [facility] 2022-11-12 00:00:00 2022-11-12 00:00:00 Transition of Care Frye Taylor B GARY GIORDANO 1.2840.114 350.1.13.10 4.2.7.2.686 [id number] [facility] 2022-11-09 01:32:00 2022-11-11 13:35:00 Inpatient X DAVEYRADHA TRAVIS [facility] [id number] [facility] 2022-11-09 01:32:00 2022-11-11 13:35:00 Hospital Encounter [facility] 1.2840.114 350.1.13.10 4.2.7.2.686 [id number] 081 [id number] [facility] 2021-05-22 00:00:00 2021-05-22 00:00:00 Telephone Jeanette Mcdaniel [facility] 1.20.114 350.1.13.10 4.2.7.2.686 [id number] [facility] 2021-05-20 14:28:38 2021-05-20 14:43:38 Ecommerce Manager Visit Pob, Adc Lab Main Jimy [facility] 1.20.114 350.1.13.10 4.2.7.2.686 [id number] [facility] 2021-05-20 14:30:00 2021-05-20 14:30:00 [id number] 2021-05-20 00:00:00 2021-05-20 00:00:00 Orders Only Doctor Unassigned, [place] [facility] 1.20.114 350.1.13.10 4.2.7.2.686 [id number] [id number] [facility] 2021-05-20 00:00:00 2021-05-20 00:00:00 [facility] 1.2.840.114 350.1.13.10 4.2.7.2.686 [id number] [facility] 2020-12-29 10:12:45 2020-12-29 11:07:51 Office Visit JimyGokul [facility] Building 1.2.840.114 350.1.13.10 4.2.7.2.686 [id number] [facility] 2020-12-29 10:15:00 2020-12-29 10:15:00 Outpatient R GOKUL TURNER [facility] [id number] [facility] 2020-12-18 13:36:17 2020-12-18 14:58:35 Office Visit Gokul Turner Rm, Adc Surg Spec Procedure [facility] Building 1.2.840.114 350.1.13.10 4.2.7.2.686 [id number] [facility] 2020-12-18 14:00:00 2020-12-18 14:00:00 Outpatient R GOKUL TURNER [facility] [id number] [facility] 2020-12-16 00:00:00 2020-12-16 00:00:00 Outpatient R JEANETTE MCDANIEL [facility] [id number] [facility] 2020-12-16 00:00:00 2020-12-16 00:00:00 Telephone Jeaentte Mcdaniel [facility] 1.2.840.114 350.1.13.10 4.2.7.2.686 [id number] [facility] 2020-12-12 11:36:00 2020-12-12 13:42:00 Emergency SylvainFrancisca Trina [facility] 1.2.840.114 350.1.13.10 4.2.7.2.686 [id number] 084 [id number] [facility] 2020-12-12 00:00:00 2020-12-12 00:00:00 Telephone Jeanette Mcdaniel [facility] 1.2.840.114 350.1.13.10 4.2.7.2.686 [id number] 204 [id number] [facility] 2020-12-08 13:28:10 2020-12-08 14:09:14 Office Visit Jeanette Mcdaniel [facility] 1.2.840.114 350.1.13.10 4.2.7.2.686 [id number] [facility] 2020-12-08 13:30:00 2020-12-08 13:30:00 Outpatient R YUNG MCDANIELELA [facility] [id number] [facility] 2020-12-08 00:00:00 2020-12-08 00:00:00 Orders Only Doctor Unassigned, [place] [facility] 1.2840.114 350.1.13.10 4.2.7.2.686 [id number] 009 [id number] [facility] 2020-12-07 00:00:00 2020-12-07 00:00:00 Nurse Triage Herminia Perez [facility] 1.2.840.114 350.1.13.10 4.2.7.2.686 [id number] 019 [id number] [facility] 2020-02-20 00:00:00 2020-02-20 00:00:00 Orders Only Doctor Unassigned, [place] [facility] 1.2.840.114 350.1.13.10 4.2.7.2.686 [id number] [id number] 2020-02-20 00:00:00 2020-02-20 00:00:00 Orders Only Doctor Unassigned, [place] [facility] 1.2.840.114 350.1.13.10 4.2.7.2.686 [id number] [id number] [facility] 2019-08-28 08:25:33 2019-08-28 11:54:00 Emergency X HERMINIA CHO [facility] ERT [id number] [facility] 2019-08-24 01:43:17 2019-08-24 03:52:00 Emergency X LOUIS HONG [facility] ERT [id number] [facility] 2019-05-03 23:28:18 2019-05-04 00:27:00 Emergency Ramesh Encinas [facility] 1.2.840.114 350.1.13.10 4.2.7.2.686 [id number] 084 [id number] [facility] 2019-05-03 23:28:18 2019-05-04 00:27:00 Emergency Ramesh Encinas [facility] 1.2.840.114 350.1.13.10 4.2.7.2.686 [id number] 084 [id number] 2019-05-03 00:00:00 2019-05-03 00:00:00 Orders Only Doctor Unassigned, [place] [facility] 1.2.840.114 350.1.13.10 4.2.7.2.686 [id number] [id number] [facility] 2019-05-03 00:00:00 2019-05-03 00:00:00 Orders Only Doctor Unassigned, [place] [facility] 1.2.840.114 350.1.13.10 4.2.7.2.686 [id number] Results Test Description Test Time Test Comments Results Result Co [facility]72777[facility]2023-02-15 21:00:57* Test Item Value Reference Range Interpretation Comme nts NA (test code = 7048704648) 133 mmol/L 135-145 L K (test code = 5700495773) 4.5 mmol/L 3.5-5.0 CL (test code = 1423089712) 90 mmol/L 98-108 L CO2 TOTAL (test code = 3521017734) 40 mmol/L 23-31 H AGAP (test code = 4522224297) 3 2-16 BUN (test code = 6325813773) 25 mg/dL 7-23 H GLUCOSE (test code = 5653412339) 107 mg/dL 70-110 CREATININE (test code = 8198285081) 0.88 mg/dL 0.60-1.25 TOTAL BILI (test code = 6823086216) 1.6 mg/dL 0.1-1.1 H CALCIUM (test code = 5754663991) 8.9 mg/dL 8.6-10.6 T PROTEIN (test code = 7492240586) 6.1 g/dL 6.3-8.2 L ALBUMIN (test code = 5524400738) 3.7 g/dL 3.5-5.0 ALK PHOS (test code = 0957872104) 56 U/L 34-122 ALTv (test code = 1742-6) 14 U/L 5-50 AST(SGOT) (test code = 0501610490) 12 U/L 13-40 L eGFR (test code = 7019079077) 87.2 mL/min/1.73m2 OMAYRA (test code = OMAYRA) [...] imaging tests). Lab Interpretation (test code = 03215-8) [facility] 21:00:57* Test Item Value Reference Range Interpretation Comme nts MAGNESIUM (test code = 2060162264) 2.0 mg/dL 1.7-2.4 Lab Interpretation (test cod e = 33942-8) Normal [facility] WITH [id number] 20:53:39* Test Item Value Reference Range Interpretation Comme nts WBC (test code = 6690-2) 9.03 See_Comment [Automated [employer] The system which generated this result transmitted reference range: 4.20 - 10.70 10*3/?L. The reference range was not used to interpret this result as normal/abnormal. RBC (test code = 789-8) 4.50 See_Comment [Automated [employer] The system which generated this result transmitted [...] 33.0 g/dL 31.2-35.0 RDW-SD (test code = 02513-4) 50.1 fL 38.5-51.6 RDW-CV (test code = 788-0) 13.6 % 12.1-15.4 PLT (test code = 777-3) 223 See_Comment [Automated messa ge] The system which generated this result transmitted reference range: 150 - 328 10*3/?L. The reference range was not used to interpret this result as normal/abnormal. MPV (test code = 10021-2) 12.1 fL 9.8-13.0 NRBC/100 WBC (test code = 5283718797) 0.0 See_Comment [Automated [employer] ssage] The system which generated this result transmitted reference range: 0.0 - 10.0 /100 WBCs. The reference range was not used to interpret this result as normal/abnormal. NRBC x10^3 (test code = 4097683440) See_Comment [Automated messa ge] The system which generated this result transmitted reference range: 10*3/?L. The reference range was not used to interpret this result as normal/abnormal. GRAN MAT (NEUT) % (test code = 770-8) 72.8 % IMM GRAN % (test code = 3571998723) 0.90 % LYMPH % (test code = 736-9) 17.7 % MONO % (test code = 5905-5) 7.4 % EOS % (test code = 713-8) 0.9 % BASO % (test code = 706-2) 0.3 % GRAN MAT x10^3(ANC) (test code = 5681090526) 6.57 10*3/uL 1.99-6.95 IMM GRAN x10^3 (test code = 7885343436) 0.08 10*3/uL 0.00-0.06 H LYMPH x10^3 (test code = 731-0) 1.60 10*3/uL 1.09-3.23 MONO x10^3 (test code = 742-7) 0.67 10*3/uL 0.36-1.02 EOS x10^3 (test code = 711-2) 0.08 10*3/uL 0.06-0.53 BASO x10^3 (test code = 704-7) 0.03 10*3/uL 0.01-0.09 Lab Interpretation (test code = 88585-9) [facility] + LACTIC [id number] 20:11:20* Test Item Value Reference Range Interpretation Comme nts PH (test code = 2854336445) 7.33 7.32-7.42 PCO2 ERVIN (test code = 2767349989) 75 See_Comment H [Automated messa ge] The system which generated this result transmitted reference range: 41 - 51 mmHg. The reference range was not used to interpret this result as normal/abnormal. PO2 ERVIN (test code = 3419456965) 20 See_Comment L [Automated messa ge] The system which generated this result transmitted reference range: 25 - 40 mmHg. The reference range was not used to interpret this result as normal/abnormal. HCO3 ERVIN (test code = 0988968933) 39 See_Comment H [Automated messa ge] The system which generated this result transmitted reference range: 24 - 28 mEq/L. The reference range was not used to interpret this result as normal/abnormal. AC VBE(BEAKER) (test code = 5855328745) 9.1 mEq/L THB ERVIN (test code = 0103859503) 15.9 g/dL 13.5-18.0 %O2HB ERVIN (test code = 3306270555) 30.0 % 52.0-63.0 L %COHB ERVIN (test code = 1332876796) 4.1 % 0.0-1.5 H %METHB ERVIN (test code = 9932715172) 0.3 % 0.4-1.5 L VOL%O2 ERVIN (test code = 8234138935) 6.7 % 6.0-12.0 NA (test code = 3921039682) 137 mmol/L 135-145 K+ (test code = 6555282634) 4.5 mmol/L 3.5-5.0 AC CA IONZ (test code = 1321827963) 4.60 mg/dL 4.50-5.30 GLUCOSE (test code = 2365057703) 113 mg/dL 70-110 H LACTIC ACID (test code = 1619380186) 1.65 mmol/L 0.50-2.20 Lab Interpretation (test code = 04872-6) [facility]normal [id number]* Test Item Value Reference Range Interpretation Comme nts TROPONIN I (test code = 1421928084) 0.005 ng/mL <=0.034 OMAYRA (test code = [...] of biotin. Lab Interpretation (test code = 28901-6) [id number] 21:17:24* Test Item Value Reference Range Interpretation Comme nts NT-proBNP (test code = 9862229905) 712 pg/mL <=125 H OMAYRA (test code = OMAYRA) Biotin has been reported to cause a negative bias, interpret results relative to patient's use of biotin. Lab Interpretation (test code = 85388-4) [facility] 21:13:47 ALCOHOL<10mg/dL01/31/2023 4:13 PM [facility]<10 Elminotq82-786 Toxic>100 Depression of [employer]>400 [facility]COM[facility] MET[facility]OLIC PANEL (00666)2023-01-31 21:10:01* Test Item Value Reference Range Interpretation Comme nts NA (test code = 1096276242) 142 mmol/L 135-145 K (test code = 5010217160) 4.7 mmol/L 3.5-5.0 CL (test code = 9009756003) 99 mmol/L 98-108 CO2 TOTAL (test code = 0410578204) 37 mmol/L 23-31 H AGAP (test code = 2030737762) 6 2-16 BUN (test code = 8940416293) 30 mg/dL 7-23 H GLUCOSE (test code = 9930431636) 100 mg/dL 70-110 CREATININE (test code = 4455003339) 0.61 mg/dL 0.60-1.25 TOTAL BILI (test code = 1892980935) 0.6 mg/dL 0.1-1.1 CALCIUM (test code = 4260671224) 8.8 mg/dL 8.6-10.6 T PROTEIN (test code = 0939609118) 5.9 g/dL 6.3-8.2 L ALBUMIN (test code = 0300766863) 3.5 g/dL 3.5-5.0 ALK PHOS (test code = 3832632352) 42 U/L 34-122 ALTv (test code = 1742-6) 16 U/L 5-50 AST(SGOT) (test code = 1477438789) 12 U/L 13-40 L eGFR (test code = 5145938836) 133.1 mL/min/1.73m2 OMAYRA (test code = OMAYRA) [...] imaging tests). Lab Interpretation (test code = 63003-0) Abnormal [facility] WITH [id number] 20:59:58* Test Item Value Reference Range Interpretation [...] g/dL 31.2-35.0 L RDW-SD (test code = 55515-0) 61.6 fL 38.5-51.6 H RDW-CV (test code = 788-0) 16.2 % 12.1-15.4 H PLT (test code = 777-3) 250 See_Comment [Automated message] The system which generated this result transmitted reference range: 150 - 328 10*3/?L. The reference range was not used to interpret this result as normal/abnormal. MPV (test code = 72749-2) 10.5 fL 9.8-13.0 NRBC/100 WBC (test code = 7072481111) 0.0 See_Comment [Automated message] The system which generated this result transmitted reference range: 0.0 - 10.0 /100 WBCs. The reference range was not used to interpret this result as normal/abnormal. NRBC x10^3 (test code = 7780921435) See_Comment [Automated message] The system which generated this result transmitted reference range: 10*3/?L. The reference range was not used to interpret this result as normal/abnormal. GRAN MAT (NEUT) % (test code = 770-8) 90.9 % IMM GRAN % (test code = 8705792832) 1.20 % LYMPH % (test code = 736-9) 3.9 % MONO % (test code = 5905-5) 3.8 % EOS % (test code = 713-8) 0.0 % BASO % (test code = 706-2) 0.2 % GRAN MAT x10^3(ANC) (test code = 5498451595) 11.83 10*3/uL 1.99-6.95 H IMM GRAN x10^3 (test code = 4508162104) 0.16 10*3/uL 0.00-0.06 H LYMPH x10^3 (test code = 731-0) 0.51 10*3/uL 1.09-3.23 L MONO x10^3 (test code = 742-7) 0.49 10*3/uL 0.36-1.02 EOS x10^3 (test code = 711-2) 0.06-0.53 L BASO x10^3 (test code = 704-7) 0.03 10*3/uL 0.01-0.09 Lab Interpretation (test code = 89202-4) [facility] [id number]:16:36* Test Item Value Reference Range Interpretation Comme nts TROPONIN I (test code = 1976838807) 0.002 ng/mL <=0.034 OMAYRA (test code = [...] of biotin. Lab Interpretation (test code = 41676-3) [facility] [id number] 11:13:18* Test Item Value Reference Range Interpretation Comme nts NT-proBNP (test code = 6988622565) 112 pg/mL <=125 OMAYRA (test code = OMAYRA) Biotin has been reported to cause a negative bias, interpret results relative to patient's use of biotin. Lab Interpretation (test code = 97408-3) Normal [facility] METABOLIC PANEL (NA, K, CL, CO2, GLUCOSE, BUN, CREATININE, CA)2023-01-27 11:04:56* Test Item Value Reference Range Interpretation Comme nts NA (test code = 8139354491) 136 mmol/L 135-145 K (test code = 3751657646) 4.1 mmol/L 3.5-5.0 CL (test code = 9069157467) 96 mmol/L 98-108 L CO2 TOTAL (test code = 5883209429) 34 mmol/L 23-31 H AGAP (test code = 1173438044) 6 2-16 BUN (test code = 6192487522) 22 mg/dL 7-23 GLUCOSE (test code = 8763433728) 117 mg/dL 70-110 H CREATININE (test code = 4241084607) 0.55 mg/dL 0.60-1.25 L CALCIUM (test code = 4440777589) 8.4 mg/dL 8.6-10.6 L eGFR (test code = 8759140665) 150.0 mL/min/1.73m2 OMAYRA (test code = OMAYRA) [...] imaging tests). Lab Interpretation (test code = 90540-2) Abnormal [facility] WITH [id number] 10:38:33* Test Item Value Reference Range Interpretation Comme nts WBC (test code = 6690-2) 9.56 See_Comment [Automated [employer] The system which generated this result transmitted reference range: 4.20 - 10.70 10*3/?L. The reference range was not used to interpret this result as normal/abnormal. RBC (test code = 789-8) 4.31 See_Comment [Automated [employer] The system which generated this result transmitted [...] 31.8 g/dL 31.2-35.0 RDW-SD (test code = 62221-2) 56.7 fL 38.5-51.6 H RDW-CV (test code = 788-0) 15.3 % 12.1-15.4 PLT (test code = 777-3) 220 See_Comment [Automated [employer] The system which generated this result transmitted reference range: 150 - 328 10*3/?L. The reference range was not used to interpret this result as normal/abnormal. MPV (test code = 13475-5) 10.6 fL 9.8-13.0 NRBC/100 WBC (test code = 8791705830) 0.0 See_Comment [Automated me ssage] The system which generated this result transmitted reference range: 0.0 - 10.0 /100 WBCs. The reference range was not used to interpret this result as normal/abnormal. NRBC x10^3 (test code = 5119964244) See_Comment [Automated messa ge] The system which generated this result transmitted reference range: 10*3/?L. The reference range was not used to interpret this result as normal/abnormal. GRAN MAT (NEUT) % (test code = 770-8) 60.0 % IMM GRAN % (test code = 1289482587) 0.70 % LYMPH % (test code = 736-9) 26.5 % MONO % (test code = 5905-5) 11.4 % EOS % (test code = 713-8) 0.9 % BASO % (test code = 706-2) 0.5 % GRAN MAT x10^3(ANC) (test code = 3553378217) 5.73 10*3/uL 1.99-6.95 IMM GRAN x10^3 (test code = 6874125939) 0.07 10*3/uL 0.00-0.06 H LYMPH x10^3 (test code = 731-0) 2.53 10*3/uL 1.09-3.23 MONO x10^3 (test code = 742-7) 1.09 10*3/uL 0.36-1.02 H EOS x10^3 (test code = 711-2) 0.09 10*3/uL 0.06-0.53 BASO x10^3 (test code = 704-7) 0.05 10*3/uL 0.01-0.09 Lab Interpretation (test code = 65106-3) [facility] CenterAMMONIA, [id number] 18:51:59* Test Item Value Reference Range Interpretation Comme nts AMMONIA (test code = 7090737177) 9-33 L Lab Interpretation (test cod e = 60024-5) [facility] CenterAC [facility] + LACTIC [id number] 18:40:53* Test Item Value Reference Range Interpretation Comme nts PH (test code = 2) 7.43 7.35-7.45 PCO2 (test code = 4461771436) 53 See_Comment H [Automated messa ge] The system which generated this result transmitted reference range: 35 - 45 mmHg. The reference range was not used to interpret this result as normal/abnormal. PO2 (test code = 3530645081) 49 See_Comment L [Automated messa ge] The system which generated this result transmitted reference range: 80 - 100 mmHg. The reference range was not used to interpret this result as normal/abnormal. HCO3 (test code = 2374150775) 34 See_Comment H [Automated messa ge] The system which generated this result transmitted reference range: 22 - 26 mEq/L. The reference range was not used to interpret this result as normal/abnormal. BE (test code = 4473469091) 7.8 See_Comment H [Automated messa ge] The system which generated this result transmitted reference range: -3.0 - 3.0 mEq/L. The reference range was not used to interpret this result as normal/abnormal. LACTIC ACID (test code = 8912990725) 0.92 mmol/L 0.50-2.20 Lab Interpretation (test code = 86404-4) [facility] CenterTrop[facility] [id number] 18:28:26* Test Item Value Reference Range Interpretation Comme nts TROPONIN I (test code = 1920671294) 0.003 ng/mL <=0.034 OMAYRA (test code = [...] of biotin. Lab Interpretation (test code = 36754-8) Normal [facility] [id number] 18:25:29* Test Item Value Reference Range Interpretation Comme nts NT-proBNP (test code = 7251060725) 376 pg/mL <=125 H OMAYRA (test code = OMAYRA) Biotin has been reported to cause a negative bias, interpret results relative to patient's use of biotin. Lab Interpretation (test code = 11489-0) Abnormal [facility] Metabolic Panel (06242)2023-01-24 18:24:03* Test Item Value Reference Range Interpretation Comme nts NA (test code = 7400775889) 135 mmol/L 135-145 K (test code = 5261980342) 4.0 mmol/L 3.5-5.0 CL (test code = 0718454560) 90 mmol/L 98-108 L CO2 TOTAL (test code = 0991711799) 43 mmol/L 23-31 H AGAP (test code = 7798246521) 2 2-16 BUN (test code = 4747809719) 12 mg/dL 7-23 GLUCOSE (test code = 3449665922) 92 mg/dL 70-110 CREATININE (test code = 3506483793) 0.58 mg/dL 0.60-1.25 L TOTAL BILI (test code = 8471286673) 1.3 mg/dL 0.1-1.1 H CALCIUM (test code = 5560578029) 8.6 mg/dL 8.6-10.6 T PROTEIN (test code = 3409717634) 6.0 g/dL 6.3-8.2 L ALBUMIN (test code = 0940753842) 3.6 g/dL 3.5-5.0 ALK PHOS (test code = 0177929734) 52 U/L 34-122 ALTv (test code = 1742-6) 17 U/L 5-50 AST(SGOT) (test code = 0408146280) 10 U/L 13-40 L eGFR (test code = 1003428761) 141.1 mL/min/1.73m2 OMAYRA (test code = OMAYRA) [...] imaging tests). Lab Interpretation (test code = 77588-9) [facility]OL[facility] 18:23:38 ALCOHOL<10mg/dL01/24/2023 1:23 PM [facility]<10 Iprzbdwj05-194 Toxic>100 Depression of INDUSTRIAL ELECTRICIAN>400 F[facility]UnH[facility]CBC with Jbygzybzwmsr9418-58-80 18:09:00* Test Item Value Reference Range Interpretation Comme nts WBC (test code = 6690-2) 7.84 See_Comment [Automated [employer] The system which generated this result transmitted reference range: 4.20 - 10.70 10*3/?L. The reference range was not used to interpret this result as normal/abnormal. RBC (test code = 789-8) 4.46 See_Comment [Automated [employer] The system which generated this result transmitted [...] g/dL 31.2-35.0 L RDW-SD (test code = 85233-8) 59.7 fL 38.5-51.6 H RDW-CV (test code = 788-0) 15.8 % 12.1-15.4 H PLT (test code = 777-3) 239 See_Comment [Automated [employer]] The system which generated this result transmitted reference range: 150 - 328 10*3/?L. The reference range was not used to interpret this result as normal/abnormal. MPV (test code = 27499-8) 10.5 fL 9.8-13.0 NRBC/100 WBC (test code = 4229367166) 0.0 See_Comment [Automated [employer] ssage] The system which generated this result transmitted reference range: 0.0 - 10.0 /100 WBCs. The reference range was not used to interpret this result as normal/abnormal. NRBC x10^3 (test code = 0198115182) See_Comment [Automated [employer] ge] The system which generated this result transmitted reference range: 10*3/?L. The reference range was not used to interpret this result as normal/abnormal. GRAN MAT (NEUT) % (test code = 770-8) 64.5 % IMM GRAN % (test code = 7697568069) 0.40 % LYMPH % (test code = 736-9) 23.1 % MONO % (test code = 5905-5) 9.8 % EOS % (test code = 713-8) 1.8 % BASO % (test code = 706-2) 0.4 % GRAN MAT x10^3(ANC) (test code = 0750559832) 5.06 10*3/uL 1.99-6.95 IMM GRAN x10^3 (test code = 2932030289) 0.03 10*3/uL 0.00-0.06 LYMPH x10^3 (test code = 731-0) 1.81 10*3/uL 1.09-3.23 MONO x10^3 (test code = 742-7) 0.77 10*3/uL 0.36-1.02 EOS x10^3 (test code = 711-2) 0.14 10*3/uL 0.06-0.53 BASO x10^3 (test code = 704-7) 0.03 10*3/uL 0.01-0.09 Lab Interpretation (test code = 85309-8) Abnormal [facility]. METABOLIC PANEL (15428)2023-01-21 21:33:50* Test Item Value Reference Range Interpretation Comme nts NA (test code = 8906070942) 136 mmol/L 135-145 K (test code = 5222057240) 4.3 mmol/L 3.5-5.0 CL (test code = 7727278067) 95 mmol/L 98-108 L CO2 TOTAL (test code = 3112418075) 38 mmol/L 23-31 H AGAP (test code = 2882207595) 3 2-16 BUN (test code = 6005385608) 17 mg/dL 7-23 GLUCOSE (test code = 8798686640) 102 mg/dL 70-110 CREATININE (test code = 5356081444) 0.62 mg/dL 0.60-1.25 TOTAL BILI (test code = 4746126473) 0.8 mg/dL 0.1-1.1 CALCIUM (test code = 2255993696) 7.8 mg/dL 8.6-10.6 L T PROTEIN (test code = 6326166871) 4.9 g/dL 6.3-8.2 L ALBUMIN (test code = 3701092260) 3.0 g/dL 3.5-5.0 L ALK PHOS (test code = 5387566374) 45 U/L 34-122 ALTv (test code = 1742-6) 13 U/L 5-50 AST(SGOT) (test code = 0461096412) 11 U/L 13-40 L eGFR (test code = 3643854955) 130.6 mL/min/1.73m2 OMAYRA (test code = OMAYRA) [...] imaging tests). Lab Interpretation (test code = 10044-4) [facility] CenterTRANGIENIN [id number] 21:11:45* Test Item Value Reference Range Interpretation Comme nts TROPONIN I (test code = 7396652919) 0.019 ng/mL <=0.034 OMAYRA (test code = [...] of biotin. Lab Interpretation (test code = 04534-8) Normal [facility] [id number]-YGV4858-10-05 21:08:47* Test Item Value Reference Range Interpretation Comme nts NT-proBNP (test code = 7115853445) 266 pg/mL <=125 H Hemolyzed specimen OMAYRA (test code = OMAYRA) Biotin has been reported to cause a negative bias, interpret results relative to patient's use of biotin. Lab Interpretation (test code = 02983-4) [facility] CenterCB WITH [id number] 20:40:24* Test Item Value Reference Range Interpretation Comme nts WBC (test code = 6690-2) 6.78 See_Comment [Automated [employer]] The system which generated this result transmitted reference range: 4.20 - 10.70 10*3/?L. The reference range was not used to interpret this result as normal/abnormal. RBC (test code = 789-8) 4.47 See_Comment [Automated [employer]] The system which generated this result transmitted [...] g/dL 31.2-35.0 L RDW-SD (test code = 73489-5) 60.4 fL 38.5-51.6 H RDW-CV (test code = 788-0) 16.2 % 12.1-15.4 H PLT (test code = 777-3) 215 See_Comment [Automated [employer] ge] The system which generated this result transmitted reference range: 150 - 328 10*3/?L. The reference range was not used to interpret this result as normal/abnormal. MPV (test code = 09448-8) 10.9 fL 9.8-13.0 NRBC/100 WBC (test code = 8612199852) 0.0 See_Comment [Automated me ssage] The system which generated this result transmitted reference range: 0.0 - 10.0 /100 WBCs. The reference range was not used to interpret this result as normal/abnormal. NRBC x10^3 (test code = 2163327356) See_Comment [Automated messa ge] The system which generated this result transmitted reference range: 10*3/?L. The reference range was not used to interpret this result as normal/abnormal. GRAN MAT (NEUT) % (test code = 770-8) 75.4 % IMM GRAN % (test code = 4208167303) 0.40 % LYMPH % (test code = 736-9) 15.3 % MONO % (test code = 5905-5) 7.7 % EOS % (test code = 713-8) 0.9 % BASO % (test code = 706-2) 0.3 % GRAN MAT x10^3(ANC) (test code = 5680241128) 5.11 10*3/uL 1.99-6.95 IMM GRAN x10^3 (test code = 9056629290) 0.03 10*3/uL 0.00-0.06 LYMPH x10^3 (test code = 731-0) 1.04 10*3/uL 1.09-3.23 L MONO x10^3 (test code = 742-7) 0.52 10*3/uL 0.36-1.02 EOS x10^3 (test code = 711-2) 0.06 10*3/uL 0.06-0.53 BASO x10^3 (test code = 704-7) 0.01-0.09 Lab Interpretation (test code = 03037-6) [facility] Crp-SGW2036-32-03 08:49:53* Test Item Value Reference Range Interpretation Comme nts NT-proBNP (test code = 1577475547) 158 pg/mL <=125 H OMAYRA (test code = OMAYRA) Biotin has been reported to cause a negative bias, interpret results relative to patient's use of biotin. Lab Interpretation (test code = 15129-9) [facility] CenterD-Mlmrx5452-20-00 08:44:10* Test Item Value Reference Range Interpretation Comments D-DIMER (test code = 9183656398) See_Comment [Automated message] The system which generated [...] a diagnosis. Lab Interpretation (test code = 68558-8) Normal [facility] METABOLIC PANEL (NA, K, CL, CO2, GLUCOSE, BUN, CREATININE, CA)2023-01-19 08:41:13* Test Item Value Reference Range Interpretation Comme nts NA (test code = 3735300938) 134 mmol/L 135-145 L K (test code = 9567294204) 5.3 mmol/L 3.5-5.0 H CL (test code = 6809920453) 91 mmol/L 98-108 L CO2 TOTAL (test code = 3755079043) 40 mmol/L 23-31 H AGAP (test code = 9843032851) 3 2-16 BUN (test code = 1137950675) 14 mg/dL 7-23 GLUCOSE (test code = 7880587033) 125 mg/dL 70-110 H CREATININE (test code = 1754001381) 0.64 mg/dL 0.60-1.25 CALCIUM (test code = 2739068611) 8.5 mg/dL 8.6-10.6 L eGFR (test code = 2316309104) 125.9 mL/min/1.73m2 OMAYRA (test code = OMAYRA) [...] imaging tests). Lab Interpretation (test code = 86154-9) Abnormal [facility] WITH [id number] 08:27:33* Test Item Value Reference Range Interpretation Comme nts WBC (test code = 6690-2) 10.04 See_Comment [Automated [employer] The system which generated this result transmitted reference range: 4.20 - 10.70 10*3/?L. The reference range was not used to interpret this result as normal/abnormal. RBC (test code = 789-8) 4.35 See_Comment [Automated [employer] The system which generated this result transmitted [...] 31.2 g/dL 31.2-35.0 RDW-SD (test code = 43169-9) 58.4 fL 38.5-51.6 H RDW-CV (test code = 788-0) 15.9 % 12.1-15.4 H PLT (test code = 777-3) 211 See_Comment [Automated messa ge] The system which generated this result transmitted reference range: 150 - 328 10*3/?L. The reference range was not used to interpret this result as normal/abnormal. MPV (test code = 02878-6) 10.2 fL 9.8-13.0 NRBC/100 WBC (test code = 4904323423) 0.0 See_Comment [Automated [employer] ssage] The system which generated this result transmitted reference range: 0.0 - 10.0 /100 WBCs. The reference range was not used to interpret this result as normal/abnormal. NRBC x10^3 (test code = 3902449245) See_Comment [Automated [employer]] The system which generated this result transmitted reference range: 10*3/?L. The reference range was not used to interpret this result as normal/abnormal. GRAN MAT (NEUT) % (test code = 770-8) 81.2 % IMM GRAN % (test code = 0976865874) 0.50 % LYMPH % (test code = 736-9) 10.1 % MONO % (test code = 5905-5) 7.5 % EOS % (test code = 713-8) 0.5 % BASO % (test code = 706-2) 0.2 % GRAN MAT x10^3(ANC) (test code = 5703624256) 8.16 10*3/uL 1.99-6.95 H IMM GRAN x10^3 (test code = 4604822737) 0.05 10*3/uL 0.00-0.06 LYMPH x10^3 (test code = 731-0) 1.01 10*3/uL 1.09-3.23 L MONO x10^3 (test code = 742-7) 0.75 10*3/uL 0.36-1.02 EOS x10^3 (test code = 711-2) 0.05 10*3/uL 0.06-0.53 L BASO x10^3 (test code = 704-7) 0.01-0.09 Lab Interpretation (test code = 05239-0) [facility] [id number] 12:09:33* Test Item Value Reference Range Interpretation Comme nts TROPONIN I (test code = 1091353612) 0.004 ng/mL <=0.034 OMAYRA (test code = [...] of biotin. Lab Interpretation (test code = 38538-0) [facility] EQT-EGU4652-62-01 12:06:16* Test Item Value Reference Range Interpretation Comme nts NT-proBNP (test code = 4046970517) 135 pg/mL <=125 H OMAYRA (test code = OMAYRA) Biotin has been reported to cause a negative bias, interpret results relative to patient's use of biotin. Lab Interpretation (test code = 03709-5) [facility]COMP[facility] Metabolic Panel (16468)2023-01-17 11:57:36* Test Item Value Reference Range Interpretation Comme nts NA (test code = 4159366840) 133 mmol/L 135-145 L K (test code = 2980636370) 5.0 mmol/L 3.5-5.0 CL (test code = 9321086849) 91 mmol/L 98-108 L CO2 TOTAL (test code = 6779182499) 33 mmol/L 23-31 H AGAP (test code = 3414874898) 9 2-16 BUN (test code = 4023185067) 10 mg/dL 7-23 GLUCOSE (test code = 2623123094) 104 mg/dL 70-110 CREATININE (test code = 5524854165) 0.63 mg/dL 0.60-1.25 TOTAL BILI (test code = 4536187264) 1.2 mg/dL 0.1-1.1 H CALCIUM (test code = 7791275226) 9.0 mg/dL 8.6-10.6 T PROTEIN (test code = 3950734013) 6.9 g/dL 6.3-8.2 ALBUMIN (test code = 3155010616) 4.4 g/dL 3.5-5.0 ALK PHOS (test code = 4443013024) 76 U/L 34-122 ALTv (test code = 1742-6) 13 U/L 5-50 AST(SGOT) (test code = 0823966204) 13 U/L 13-40 eGFR (test code = 9699427157) 128.2 mL/min/1.73m2 OMAYRA (test code = OMAYRA) [...] imaging tests). Lab Interpretation (test code = 87677-2) Abnormal [facility] with [id number] 11:30:52* Test Item Value Reference Range Interpretation Comme nts WBC (test code = 6690-2) 9.66 See_Comment [Automated [employer]] The system which generated this result transmitted reference range: 4.20 - 10.70 10*3/?L. The reference range was not used to interpret this result as normal/abnormal. RBC (test code = 789-8) 5.00 See_Comment [Automated [employer] ge] The system which generated this result [...] 31.2 g/dL 31.2-35.0 RDW-SD (test code = 99524-6) 56.6 fL 38.5-51.6 H RDW-CV (test code = 788-0) 15.4 % 12.1-15.4 PLT (test code = 777-3) 261 See_Comment [Automated [employer] ge] The system which generated this result transmitted reference range: 150 - 328 10*3/?L. The reference range was not used to interpret this result as normal/abnormal. MPV (test code = 23569-8) 10.4 fL 9.8-13.0 NRBC/100 WBC (test code = 8110249626) 0.0 See_Comment [[employer]ated [employer] ssage] The system which generated this result transmitted reference range: 0.0 - 10.0 /100 WBCs. The reference range was not used to interpret this result as normal/abnormal. NRBC x10^3 (test code = 9388666791) See_Comment [Automated messa ge] The system which generated this result transmitted reference range: 10*3/?L. The reference range was not used to interpret this result as normal/abnormal. GRAN MAT (NEUT) % (test code = 770-8) 58.9 % IMM GRAN % (test code = 0824830731) 0.40 % LYMPH % (test code = 736-9) 28.6 % MONO % (test code = 5905-5) 10.5 % EOS % (test code = 713-8) 0.9 % BASO % (test code = 706-2) 0.7 % GRAN MAT x10^3(ANC) (test code = 9906435351) 5.69 10*3/uL 1.99-6.95 IMM GRAN x10^3 (test code = 9825130979) 0.04 10*3/uL 0.00-0.06 LYMPH x10^3 (test code = 731-0) 2.76 10*3/uL 1.09-3.23 MONO x10^3 (test code = 742-7) 1.01 10*3/uL 0.36-1.02 EOS x10^3 (test code = 711-2) 0.09 10*3/uL 0.06-0.53 BASO x10^3 (test code = 704-7) 0.07 10*3/uL 0.01-0.09 Lab Interpretation (test code = 96822-7) [facility] WIJ-KDW4811-05-26 10:20:57* Test Item Value Reference Range Interpretation Comme nts NT-proBNP (test code = 0853442704) 473 pg/mL <=125 H OMAYRA (test code = OMAYRA) Biotin has been reported to cause a negative bias, interpret results relative to patient's use of biotin. Lab Interpretation (test code = 72686-8) [facility] CenterLIPID PANEL (23083)(TOTAL CHOLESTEROL, TRIGLYCERIDES, HDL)2022-12-12 10:18:39* Test Item Value Reference Range Interpretation Comme nts CHOL (test code = 2211581549) 133 mg/dL 120-200 HDL (test code = 9150274547) 38 mg/dL >=40 L HDLC RATIO (test code = 0495797878) 3.5 <=5.0 TRIG (test code = 9193784483) 57 mg/dL 30-170 LDL CHOL (test code = 64432-9) 84 mg/dL <=160 VLDL (test code = 7433096436) 11 mg/dL 5-60 Lab Interpretation (test cod e = 77193-3) [facility]MAG[facility]2023-03-26 10:18:19* Test Item Value Reference Range Interpretation Comme nts MAGNESIUM (test code = 7622778429) 2.0 mg/dL 1.7-2.4 Lab Interpretation (test cod e = 65724-8) Normal [facility] METABOLIC PANEL (NA, K, CL, CO2, GLUCOSE, BUN, CREATININE, CA)2022-12-12 10:18:14* Test Item Value Reference Range Interpretation Comme nts NA (test code = 7861194020) 130 mmol/L 135-145 L K (test code = 0049393291) 3.7 mmol/L 3.5-5.0 CL (test code = 9981946854) 89 mmol/L 98-108 L CO2 TOTAL (test code = 8497560542) 37 mmol/L 23-31 H AGAP (test code = 7045654393) 4 2-16 BUN (test code = 2292259451) 13 mg/dL 7-23 GLUCOSE (test code = 2786671017) 120 mg/dL 70-110 H CREATININE (test code = 7338328452) 0.56 mg/dL 0.60-1.25 L CALCIUM (test code = 8867528014) 8.3 mg/dL 8.6-10.6 L eGFR (test code = 7961572624) 146.9 mL/min/1.73m2 OMAYRA (test code = OMAYRA) [...] imaging tests). Lab Interpretation (test code = 16130-9) [facility] 00:54:58 ALCOHOL<10mg/dL12/10/2022 7:54 PM [facility]<10 Rrhxpasv46-734 Toxic>100 Depression of INDUSTRIAL ELECTRICIAN>400 Fatalities [facility]ortedBro[facility] CenterTROPONIN [id number] 00:50:14* Test Item Value Reference Range Interpretation Comme nts TROPONIN I (test code = 8857062761) 0.006 ng/mL <=0.034 OMAYRA (test code = [...] of biotin. Lab Interpretation (test code = 82859-2) [facility] ECA-PFV5585-53-25 00:47:12* Test Item Value Reference Range Interpretation Comme nts NT-proBNP (test code = 2038044835) 291 pg/mL <=125 H OMAYRA (test code = MOAYRA) Biotin has been reported to cause a negative bias, interpret results relative to patient's use of biotin. Lab Interpretation (test code = 00287-9) Abnormal [facility]. METABOLIC PANEL (24136)2022-12-11 00:41:12* Test Item Value Reference Range Interpretation Comme nts NA (test code = 5221884884) 126 mmol/L 135-145 L K (test code = 6150638694) 4.0 mmol/L 3.5-5.0 CL (test code = 6584156897) 82 mmol/L 98-108 L CO2 TOTAL (test code = 8658691539) 40 mmol/L 23-31 H AGAP (test code = 9394002891) 4 2-16 BUN (test code = 4949759650) 16 mg/dL 7-23 GLUCOSE (test code = 7897566904) 97 mg/dL 70-110 CREATININE (test code = 1414412822) 0.67 mg/dL 0.60-1.25 TOTAL BILI (test code = 9565919410) 0.8 mg/dL 0.1-1.1 CALCIUM (test code = 2289182156) 8.5 mg/dL 8.6-10.6 L T PROTEIN (test code = 7411985730) 5.9 g/dL 6.3-8.2 L ALBUMIN (test code = 0935458668) 3.5 g/dL 3.5-5.0 ALK PHOS (test code = 2716456534) 49 U/L 34-122 ALTv (test code = 1742-6) 18 U/L 5-50 AST(SGOT) (test code = 1359044757) 11 U/L 13-40 L eGFR (test code = 0245345835) 119.4 mL/min/1.73m2 OMAYRA (test code = OMAYRA) [...] imaging tests). Lab Interpretation (test code = 31986-0) Abnormal [facility] WITH [id number] 00:29:08* Test Item Value Reference Range Interpretation Comme nts WBC (test code = 6690-2) 10.15 See_Comment [dbTwang] The system which generated this result transmitted reference range: 4.20 - 10.70 10*3/?L. The reference range was not used to interpret this result as normal/abnormal. RBC (test code = 789-8) 4.52 See_Comment [dbTwang] The system which generated this result transmitted [...] 32.8 g/dL 31.2-35.0 RDW-SD (test code = 99662-9) 46.7 fL 38.5-51.6 RDW-CV (test code = 788-0) 13.6 % 12.1-15.4 PLT (test code = 777-3) 263 See_Comment [Automated messa ge] The system which generated this result transmitted reference range: 150 - 328 10*3/?L. The reference range was not used to interpret this result as normal/abnormal. MPV (test code = 73835-7) 9.7 fL 9.8-13.0 L NRBC/100 WBC (test code = 7022835028) 0.0 See_Comment [Automated Smart Devices ssage] The system which generated this result transmitted reference range: 0.0 - 10.0 /100 WBCs. The reference range was not used to interpret this result as normal/abnormal. NRBC x10^3 (test code = 5980007338) See_Comment [Automated messa ge] The system which generated this result transmitted reference range: 10*3/?L. The reference range was not used to interpret this result as normal/abnormal. GRAN MAT (NEUT) % (test code = 770-8) 71.6 % IMM GRAN % (test code = 1344601685) 0.90 % LYMPH % (test code = 736-9) 17.6 % MONO % (test code = 5905-5) 8.7 % EOS % (test code = 713-8) 1.0 % BASO % (test code = 706-2) 0.2 % GRAN MAT x10^3(ANC) (test code = 3828181686) 7.27 10*3/uL 1.99-6.95 H IMM GRAN x10^3 (test code = 4787945700) 0.09 10*3/uL 0.00-0.06 H LYMPH x10^3 (test code = 731-0) 1.79 10*3/uL 1.09-3.23 MONO x10^3 (test code = 742-7) 0.88 10*3/uL 0.36-1.02 EOS x10^3 (test code = 711-2) 0.10 10*3/uL 0.06-0.53 BASO x10^3 (test code = 704-7) 0.01-0.09 Lab Interpretation (test code = 61383-0) [facility] [id number] 00:14:48* Test Item Value Reference Range Interpretation Comme nts LACTIC ACID (test code = 4754639117) 1.30 mmol/L 0.50-2.20 Lab Interpretation (test cod e = 13402-0) Normal [facility] METABOLIC PANEL (NA, K, CL, CO2, GLUCOSE, BUN, CREATININE, CA)2022-12-04 11:06:33* Test Item Value Reference Range Interpretation Comme nts NA (test code = 4558070497) 123 mmol/L 135-145 L K (test code = 4671466429) 3.8 mmol/L 3.5-5.0 CL (test code = 9422311723) 86 mmol/L 98-108 L CO2 TOTAL (test code = 7199363343) 36 mmol/L 23-31 H AGAP (test code = 3874135437) 1 2-16 L BUN (test code = 1023244522) 22 mg/dL 7-23 GLUCOSE (test code = 8804929437) 195 mg/dL 70-110 H CREATININE (test code = 5386321888) 0.76 mg/dL 0.60-1.25 CALCIUM (test code = 9332563899) 8.2 mg/dL 8.6-10.6 L eGFR (test code = 6227923678) 103.3 mL/min/1.73m2 OMAYRA (test code = OMAYRA) [...] imaging tests). Lab Interpretation (test code = 88782-5) Abnormal [facility] WITH [id number] 10:54:29* Test Item Value Reference Range Interpretation Comme nts WBC (test code = 6690-2) 8.54 See_Comment [Automated [employer] The system which generated this result transmitted reference range: 4.20 - 10.70 10*3/?L. The reference range was not used to interpret this result as normal/abnormal. RBC (test code = 789-8) 4.17 See_Comment L [Automated [employer] The system which generated this result transmitted [...] 34.1 g/dL 31.2-35.0 RDW-SD (test code = 72788-3) 44.1 fL 38.5-51.6 RDW-CV (test code = 788-0) 13.6 % 12.1-15.4 PLT (test code = 777-3) 247 See_Comment [Automated [employer]ly[employer] ge] The system which generated this result transmitted reference range: 150 - 328 10*3/?L. The reference range was not used to interpret this result as normal/abnormal. MPV (test code = 64044-5) 9.5 fL 9.8-13.0 L NRBC/100 WBC (test code = 3420650904) 0.0 See_Comment [Automated [employer] ssage] The system which generated this result transmitted reference range: 0.0 - 10.0 /100 WBCs. The reference range was not used to interpret this result as normal/abnormal. NRBC x10^3 (test code = 0536217710) See_Comment [Automated [employer]] The system which generated this result transmitted reference range: 10*3/?L. The reference range was not used to interpret this result as normal/abnormal. GRAN MAT (NEUT) % (test code = 770-8) 93.0 % IMM GRAN % (test code = 7237076523) 0.90 % LYMPH % (test code = 736-9) 3.2 % MONO % (test code = 5905-5) 2.9 % EOS % (test code = 713-8) 0.0 % BASO % (test code = 706-2) 0.0 % GRAN MAT x10^3(ANC) (test code = 2236248354) 7.94 10*3/uL 1.99-6.95 H IMM GRAN x10^3 (test code = 2127984979) 0.08 10*3/uL 0.00-0.06 H LYMPH x10^3 (test code = 731-0) 0.27 10*3/uL 1.09-3.23 L MONO x10^3 (test code = 742-7) 0.25 10*3/uL 0.36-1.02 L EOS x10^3 (test code = 711-2) 0.06-0.53 L BASO x10^3 (test code = 704-7) 0.01-0.09 Lab Interpretation (test code = 24048-7) Abnormal [facility] Metabolic Panel (NA, K, CL, CO2, GLUCOSE, BUN, CREATININE, CA)2022-12-03 10:44:53* Test Item Value Reference Range Interpretation Comme nts NA (test code = 8390582140) 126 mmol/L 135-145 L K (test code = 1232493911) 4.0 mmol/L 3.5-5.0 Slight hemolysis CL (test code = 2936241321) 89 mmol/L 98-108 L CO2 TOTAL (test code = 8922468371) 32 mmol/L 23-31 H AGAP (test code = 8659137025) 5 2-16 BUN (test code = 9648958502) 15 mg/dL 7-23 Slight hemolysis GLUCOSE (test code = 1032707888) 115 mg/dL 70-110 H CREATININE (test code = 3555609141) 0.63 mg/dL 0.60-1.25 CALCIUM (test code = 0066112089) 7.7 mg/dL 8.6-10.6 L eGFR (test code = 5687889120) 128.2 mL/min/1.73m2 OMAYRA (test code = OMAYRA) [...] imaging tests). Lab Interpretation (test code = 55579-1) [facility]normal [facility] CenterMagnesium Tuvay7366-05-98 10:44:53* Test Item Value Reference Range Interpretation Comme nts MAGNESIUM (test code = 0006217780) 1.6 mg/dL 1.7-2.4 L Lab Interpretation (test cod e = 36489-5) [facility]normal [facility] Center[facility] with Jjzuzpmeesde8708-55-91 10:39:13* Test Item Value Reference Range Interpretation [...] 33.1 g/dL 31.2-35.0 RDW-SD (test code = 58789-5) 45.4 fL 38.5-51.6 RDW-CV (test code = 788-0) 13.6 % 12.1-15.4 PLT (test code = 777-3) 254 See_Comment [Automated message] The system which generated this result transmitted reference range: 150 - 328 10*3/?L. The reference range was not used to interpret this result as normal/abnormal. MPV (test code = 07684-9) 10.2 fL 9.8-13.0 NRBC/100 WBC (test code = 5614968552) 0.0 See_Comment [Automated message] The system which generated this result transmitted reference range: 0.0 - 10.0 /100 WBCs. The reference range was not used to interpret this result as normal/abnormal. NRBC x10^3 (test code = 1944514630) See_Comment [Automated message] The system which generated this result transmitted reference range: 10*3/?L. The reference range was not used to interpret this result as normal/abnormal. GRAN MAT (NEUT) % (test code = 770-8) 90.0 % IMM GRAN % (test code = 0133054976) 0.90 % LYMPH % (test code = 736-9) 5.9 % MONO % (test code = 5905-5) 2.8 % EOS % (test code = 713-8) 0.2 % BASO % (test code = 706-2) 0.2 % GRAN MAT x10^3(ANC) (test code = 8639970801) 10.27 10*3/uL 1.99-6.95 H IMM GRAN x10^3 (test code = 5376659890) 0.10 10*3/uL 0.00-0.06 H LYMPH x10^3 (test code = 731-0) 0.67 10*3/uL 1.09-3.23 L MONO x10^3 (test code = 742-7) 0.32 10*3/uL 0.36-1.02 L EOS x10^3 (test code = 711-2) 0.06-0.53 L BASO x10^3 (test code = 704-7) 0.01-0.09 Lab Interpretation (test code = 80719-3) Abnormal [facility] METABOLIC PANEL (NA, K, CL, CO2, GLUCOSE, BUN, CREATININE, CA)2022-12-02 06:20:42* Test Item Value Reference Range Interpretation Comme nts NA (test code = 2347357120) 124 mmol/L 135-145 L K (test code = 0149440638) 4.5 mmol/L 3.5-5.0 CL (test code = 2052779710) 78 mmol/L 98-108 L CO2 TOTAL (test code = 9225615346) 37 mmol/L 23-31 H AGAP (test code = 1885592484) 9 2-16 BUN (test code = 4376504189) 14 mg/dL 7-23 GLUCOSE (test code = 9544251551) 93 mg/dL 70-110 CREATININE (test code = 3905234280) 0.71 mg/dL 0.60-1.25 CALCIUM (test code = 7728379665) 9.1 mg/dL 8.6-10.6 eGFR (test code = 9284077652) 111.7 mL/min/1.73m2 OMAYRA (test code = OMAYRA) [...] imaging tests). Lab Interpretation (test code = 95982-3) [facility] CenterNELA [id number] 12:22:32* Test Item Value Reference Range Interpretation Comme nts TROPONIN I (test code = 8166567376) 0.008 ng/mL <=0.034 OMAYRA (test code = [...] of biotin. Lab Interpretation (test code = 89962-0) Normal [facility] METABOLIC PANEL (NA, K, CL, CO2, GLUCOSE, BUN, CREATININE, CA)2022-12-01 12:11:11* Test Item Value Reference Range Interpretation Comme [facility] NA (test code = 5365956045) 124 mmol/L 135-145 L K (test code = 4628133934) 4.2 mmol/L 3.5-5.0 CL (test code = 0214619504) 79 mmol/L 98-108 L CO2 TOTAL (test code = 0360403388) 37 mmol/L 23-31 H AGAP (test code = 5692924995) 8 2-16 BUN (test code = 7857694111) 16 mg/dL 7-23 GLUCOSE (test code = 3730540252) 105 mg/dL 70-110 CREATININE (test code = 7639128456) 0.67 mg/dL 0.60-1.25 CALCIUM (test code = 5139893556) 8.6 mg/dL 8.6-10.6 eGFR (test code = 8712697546) 119.4 mL/min/1.73m2 OMAYRA (test code = OMAYRA) [...] imaging tests). Lab Interpretation (test code = 83336-4) Abnormal [facility] WITH [id number] 11:59:32* Test Item Value Reference Range Interpretation [...] 32.9 g/dL 31.2-35.0 RDW-SD (test code = 38239-1) 43.8 fL 38.5-51.6 RDW-CV (test code = 788-0) 13.2 % 12.1-15.4 PLT (test code = 777-3) 208 See_Comment [Automated message] The system which generated this result transmitted reference range: 150 - 328 10*3/?L. The reference range was not used to interpret this result as normal/abnormal. MPV (test code = 22365-5) 9.8 fL 9.8-13.0 NRBC/100 WBC (test code = 4479908276) 0.0 See_Comment [Automated message] The system which generated this result transmitted reference range: 0.0 - 10.0 /100 WBCs. The reference range was not used to interpret this result as normal/abnormal. NRBC x10^3 (test code = 7517094158) See_Comment [Automated message] The system which generated this result transmitted reference range: 10*3/?L. The reference range was not used to interpret this result as normal/abnormal. GRAN MAT (NEUT) % (test code = 770-8) 85.9 % IMM GRAN % (test code = 9298395293) 0.50 % LYMPH % (test code = 736-9) 6.8 % MONO % (test code = 5905-5) 6.3 % EOS % (test code = 713-8) 0.3 % BASO % (test code = 706-2) 0.2 % GRAN MAT x10^3(ANC) (test code = 2624140965) 10.44 10*3/uL 1.99-6.95 H IMM GRAN x10^3 (test code = 6595195701) 0.06 10*3/uL 0.00-0.06 LYMPH x10^3 (test code = 731-0) 0.83 10*3/uL 1.09-3.23 L MONO x10^3 (test code = 742-7) 0.77 10*3/uL 0.36-1.02 EOS x10^3 (test code = 711-2) 0.04 10*3/uL 0.06-0.53 L BASO x10^3 (test code = 704-7) 0.03 10*3/uL 0.01-0.09 Lab Interpretation (test code = 35852-4) [facility] (NA, K, CL, CO2, GLUCOSE, BUN, CREATININE, CA)2022-11-28 17:17:23* Test Item Value Reference Range Interpretation Comme nts NA (test code = 6202868272) 120 mmol/L 135-145 L K (test code = 8430259845) 4.3 mmol/L 3.5-5.0 CL (test code = 3499028120) 77 mmol/L 98-108 L CO2 TOTAL (test code = 3428059193) 40 mmol/L 23-31 H AGAP (test code = 8876060980) 3 2-16 BUN (test code = 0731558796) 15 mg/dL 7-23 GLUCOSE (test code = 0225329603) 151 mg/dL 70-110 H CREATININE (test code = 3795512967) 0.63 mg/dL 0.60-1.25 CALCIUM (test code = 2321980683) 8.2 mg/dL 8.6-10.6 L eGFR (test code = 0835557628) 128.2 mL/min/1.73m2 OMAYRA (test code = OMAYRA) [...] imaging tests). Lab Interpretation (test code = 47491-5) [facility]2023-[facility]-12 06:54:10* Test Item Value Reference Range Interpretation Comme nts MAGNESIUM (test code = 3668620196) 1.6 mg/dL 1.7-2.4 L Lab Interpretation (test cod e = 66439-6) [facility]normal [facility] (NA, K, CL, CO2, GLUCOSE, BUN, CREATININE, CA)2022-11-28 01:29:53* Test Item Value Reference Range Interpretation Comme nts NA (test code = 6558835996) 120 mmol/L 135-145 L K (test code = 3348682617) 3.9 mmol/L 3.5-5.0 CL (test code = 4506288704) 77 mmol/L 98-108 L CO2 TOTAL (test code = 3266625677) 36 mmol/L 23-31 H AGAP (test code = 8291431528) 7 2-16 BUN (test code = 0639256736) 17 mg/dL 7-23 GLUCOSE (test code = 0584523446) 85 mg/dL 70-110 CREATININE (test code = 1654870129) 0.76 mg/dL 0.60-1.25 CALCIUM (test code = 9744286473) 8.3 mg/dL 8.6-10.6 L eGFR (test code = 3311466797) 103.3 mL/min/1.73m2 OMAYRA (test code = OMAYRA) [...] imaging tests). Lab Interpretation (test code = 41466-7) Abnormal [facility] METABOLIC PANEL (NA, K, CL, CO2, GLUCOSE, BUN, CREATININE, CA)2022-11-27 20:36:26* Test Item Value Reference Range Interpretation Comme nts NA (test code = 1079382077) 122 mmol/L 135-145 L K (test code = 1174293378) 3.9 mmol/L 3.5-5.0 CL (test code = 4511357850) 79 mmol/L 98-108 L CO2 TOTAL (test code = 0405108348) 37 mmol/L 23-31 H AGAP (test code = 2072352990) 6 2-16 BUN (test code = 9693688429) 17 mg/dL 7-23 GLUCOSE (test code = 5244257308) 113 mg/dL 70-110 H CREATININE (test code = 0823507395) 0.78 mg/dL 0.60-1.25 CALCIUM (test code = 0740277756) 7.8 mg/dL 8.6-10.6 L eGFR (test code = 5965129281) 100.2 mL/min/1.73m2 OMAYRA (test code = OMAYRA) [...] imaging tests). Lab Interpretation (test code = 57321-0) [facility]normal [facility] CenterGLYCOSYLATED HEMOGLOBIN (A1C)2022-11-27 18:21:30* Test Item Value Reference Range Interpretation Comme nts HGB A1C (test code = 4548-4) 5.9 % 4.0-5.7 H OMAYRA (test code = OMAYRA) Reference RangesNormal: <5.7%Prediabetes: 5.7 - 6.4%Diabetes: > 6.5% Lab Interpretation (test code = 68691-6) Abnormal [facility] CenterTROP[facility]IN [id number] 06:12:58* Test Item Value Reference Range Interpretation Comme nts TROPONIN I (test code = 9118337944) 0.007 ng/mL <=0.034 OMAYRA (test code = [...] of biotin. 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 Lab Interpretation (test code = 93914-0) [facility]normal [facility] CenterCOMP[facility] METABOLIC PANEL ([id number])2022-11-27 06:08:02* Test Item Value Reference Range Interpretation Comme nts NA (test code = 1968017831) 116 mmol/L 135-145 LL K (test code = 9354946543) 4.1 mmol/L 3.5-5.0 CL (test code = 0804946647) 75 mmol/L 98-108 L CO2 TOTAL (test code = 9620891600) 34 mmol/L 23-31 H AGAP (test code = 9545502139) 7 2-16 BUN (test code = 6148270926) 16 mg/dL 7-23 GLUCOSE (test code = 6069260777) 70 mg/dL 70-110 CREATININE (test code = 3781486627) 0.62 mg/dL 0.60-1.25 TOTAL BILI (test code = 3655963435) 1.2 mg/dL 0.1-1.1 H CALCIUM (test code = 4365102222) 8.1 mg/dL 8.6-10.6 L T PROTEIN (test code = 3445950614) 6.3 g/dL 6.3-8.2 ALBUMIN (test code = 7932646087) 3.8 g/dL 3.5-5.0 ALK PHOS (test code = 0352447503) 58 U/L 34-122 ALTv (test code = 1742-6) 15 U/L 5-50 AST(SGOT) (test code = 6144941644) 13 U/L 13-40 eGFR (test code = 8500163479) 130.6 mL/min/1.73m2 OMAYRA (test code = OMAYRA) [...] imaging tests). Lab Interpretation (test code = 60487-9) Abnormal [facility] WITH [id number] 05:45:18* Test Item Value Reference Range Interpretation Comme nts WBC (test code = 6690-2) 9.18 See_Comment [Automated [employer] The system which generated this result transmitted reference range: 4.20 - 10.70 10*3/?L. The reference range was not used to interpret this result as normal/abnormal. RBC (test code = 789-8) 4.49 See_Comment [Automated messa ge] The system which [...] 34.8 g/dL 31.2-35.0 RDW-SD (test code = 69980-2) 40.1 fL 38.5-51.6 RDW-CV (test code = 788-0) 12.6 % 12.1-15.4 PLT (test code = 777-3) 216 See_Comment [Automated [employer]] The system which generated this result transmitted reference range: 150 - 328 10*3/?L. The reference range was not used to interpret this result as normal/abnormal. MPV (test code = 31899-0) 9.4 fL 9.8-13.0 L NRBC/100 WBC (test code = 1212727299) 0.0 See_Comment [Automated [employer] ssage] The system which generated this result transmitted reference range: 0.0 - 10.0 /100 WBCs. The reference range was not used to interpret this result as normal/abnormal. NRBC x10^3 (test code = 3835348714) See_Comment [Automated messa ge] The system which generated this result transmitted reference range: 10*3/?L. The reference range was not used to interpret this result as normal/abnormal. GRAN MAT (NEUT) % (test code = 770-8) 79.1 % IMM GRAN % (test code = 7780031057) 0.90 % LYMPH % (test code = 736-9) 11.8 % MONO % (test code = 5905-5) 6.8 % EOS % (test code = 713-8) 1.2 % BASO % (test code = 706-2) 0.2 % GRAN MAT x10^3(ANC) (test code = 2128317758) 7.27 10*3/uL 1.99-6.95 H IMM GRAN x10^3 (test code = 2291980977) 0.08 10*3/uL 0.00-0.06 H LYMPH x10^3 (test code = 731-0) 1.08 10*3/uL 1.09-3.23 L MONO x10^3 (test code = 742-7) 0.62 10*3/uL 0.36-1.02 EOS x10^3 (test code = 711-2) 0.11 10*3/uL 0.06-0.53 BASO x10^3 (test code = 704-7) 0.01-0.09 Lab Interpretation (test code = 23749-5) [facility]normal [facility] Center[facility] ORQ-BWD9631-96-03 09:49:54* Test Item Value Reference Range Interpretation Comme nts NT-proBNP (test code = 4310625543) 294 pg/mL <=125 H OMAYRA (test code = OMAYRA) Biotin has been reported to cause a negative bias, interpret results relative to patient's use of biotin. Lab Interpretation (test code = 27588-2) [facility]normal [facility] Center[facility] (23278)2022-11-19 09:41:52* Test Item Value Reference Range Interpretation Comme nts NA (test code = 7776703985) 120 mmol/L 135-145 L K (test code = 1317659861) 4.4 mmol/L 3.5-5.0 CL (test code = 7603766741) 80 mmol/L 98-108 L CO2 TOTAL (test code = 3714490473) 34 mmol/L 23-31 H AGAP (test code = 2603000280) 6 2-16 BUN (test code = 0901898219) 10 mg/dL 7-23 GLUCOSE (test code = 2135056109) 93 mg/dL 70-110 CREATININE (test code = 7187998605) 0.77 mg/dL 0.60-1.25 TOTAL BILI (test code = 2391917073) 1.1 mg/dL 0.1-1.1 CALCIUM (test code = 4135670819) 8.7 mg/dL 8.6-10.6 T PROTEIN (test code = 7682198051) 6.9 g/dL 6.3-8.2 ALBUMIN (test code = 0403159398) 4.1 g/dL 3.5-5.0 ALK PHOS (test code = 3593964539) 60 U/L 34-122 ALTv (test code = 1742-6) 14 U/L 5-50 AST(SGOT) (test code = 8846295923) 13 U/L 13-40 eGFR (test code = 8667115138) 101.7 mL/min/1.73m2 OMAYRA (test code = OMAYRA) [...] imaging tests). Lab Interpretation (test code = 33103-1) Abnormal [facility] WITH [id number] 09:02:29* Test Item Value Reference Range Interpretation [...] 33.7 g/dL 31.2-35.0 RDW-SD (test code = 14104-7) 42.3 fL 38.5-51.6 RDW-CV (test code = 788-0) 12.9 % 12.1-15.4 PLT (test code = 777-3) 252 See_Comment [Automated messa ge] The system which generated this result transmitted reference range: 150 - 328 10*3/?L. The reference range was not used to interpret this result as normal/abnormal. MPV (test code = 77066-8) 9.6 fL 9.8-13.0 L NRBC/100 WBC (test code = 5457444288) 0.0 See_Comment [Automated [employer] ssage] The system which generated this result transmitted reference range: 0.0 - 10.0 /100 WBCs. The reference range was not used to interpret this result as normal/abnormal. NRBC x10^3 (test code = 5693697130) See_Comment [Automated messa ge] The system which generated this result transmitted reference range: 10*3/?L. The reference range was not used to interpret this result as normal/abnormal. GRAN MAT (NEUT) % (test code = 770-8) 70.7 % IMM GRAN % (test code = 4799335786) 1.00 % LYMPH % (test code = 736-9) 16.0 % MONO % (test code = 5905-5) 10.5 % EOS % (test code = 713-8) 1.3 % BASO % (test code = 706-2) 0.5 % GRAN MAT x10^3(ANC) (test code = 4384883868) 5.87 10*3/uL 1.99-6.95 IMM GRAN x10^3 (test code = 2869005653) 0.08 10*3/uL 0.00-0.06 H LYMPH x10^3 (test code = 731-0) 1.33 10*3/uL 1.09-3.23 MONO x10^3 (test code = 742-7) 0.87 10*3/uL 0.36-1.02 EOS x10^3 (test code = 711-2) 0.11 10*3/uL 0.06-0.53 BASO x10^3 (test code = 704-7) 0.04 10*3/uL 0.01-0.09 Lab Interpretation (test code = 69016-4) Abnormal [facility] METABOLIC PANEL (NA, K, CL, CO2, GLUCOSE, BUN, CREATININE, CA)2022-11-10 23:42:55* Test Item Value Reference Range Interpretation Comme nts NA (test code = 7801602703) 121 mmol/L 135-145 L K (test code = 2370837718) 4.7 mmol/L 3.5-5.0 CL (test code = 9828428343) 82 mmol/L 98-108 L CO2 TOTAL (test code = 8776822311) 34 mmol/L 23-31 H AGAP (test code = 5639584977) 5 2-16 BUN (test code = 0259873031) 15 mg/dL 7-23 GLUCOSE (test code = 2506031616) 120 mg/dL 70-110 H CREATININE (test code = 0420259319) 0.75 mg/dL 0.60-1.25 CALCIUM (test code = 1726731237) 7.7 mg/dL 8.6-10.6 L eGFR (test code = 5093105120) 104.8 mL/min/1.73m2 OMAYRA (test code = OMAYRA) [...] imaging tests). Lab Interpretation (test code = 06445-7) Abnormal [facility] METABOLIC PANEL (NA, K, CL, CO2, GLUCOSE, BUN, CREATININE, CA)2022-11-10 17:59:59* Test Item Value Reference Range Interpretation Comme nts NA (test code = 1593460562) 121 mmol/L 135-145 L K (test code = 2235559845) 4.3 mmol/L 3.5-5.0 CL (test code = 1332418769) 81 mmol/L 98-108 L CO2 TOTAL (test code = 2117992448) 38 mmol/L 23-31 H AGAP (test code = 5299251819) 2 2-16 BUN (test code = 0617298329) 15 mg/dL 7-23 GLUCOSE (test code = 1390033890) 113 mg/dL 70-110 H CREATININE (test code = 5074488675) 0.74 mg/dL 0.60-1.25 CALCIUM (test code = 8569153733) 7.5 mg/dL 8.6-10.6 L eGFR (test code = 0742324284) 106.5 mL/min/1.73m2 OMAYRA (test code = OMAYRA) [...] imaging tests). Lab Interpretation (test code = 90971-9) [id number] 13:08:23* Test Item Value Reference Range Interpretation Comme nts NT-proBNP (test code = 9113982648) 177 pg/mL <=125 H OMAYRA (test code = OMAYRA) Biotin has been reported to cause a negative bias, interpret results relative to patient's use of biotin. Lab Interpretation (test code = 93140-6) [facility] [id number] 08:23:33* Test Item Value Reference Range Interpretation Comme nts TROPONIN I (test code = 1657039885) 0.004 ng/mL <=0.034 OMAYRA (test code = [...] of biotin. Lab Interpretation (test code = 89990-3) [facility] (57043)2022-11-09 08:12:09* Test Item Value Reference Range Interpretation Comme nts NA (test code = 7033945337) 123 mmol/L 135-145 L K (test code = 9683852847) 4.2 mmol/L 3.5-5.0 CL (test code = 8929105775) 78 mmol/L 98-108 L CO2 TOTAL (test code = 8420994819) 34 mmol/L 23-31 H AGAP (test code = 8972895373) 11 2-16 BUN (test code = 7786497040) 8 mg/dL 7-23 GLUCOSE (test code = 5024613805) 113 mg/dL 70-110 H CREATININE (test code = 0232229703) 0.87 mg/dL 0.60-1.25 TOTAL BILI (test code = 6283711914) 1.2 mg/dL 0.1-1.1 H CALCIUM (test code = 6141453078) 8.8 mg/dL 8.6-10.6 T PROTEIN (test code = 9443715012) 7.6 g/dL 6.3-8.2 ALBUMIN (test code = 9558351411) 4.5 g/dL 3.5-5.0 ALK PHOS (test code = 3700084289) 72 U/L 34-122 ALTv (test code = 1742-6) 13 U/L 5-50 AST(SGOT) (test code = 3533463917) 13 U/L 13-40 eGFR (test code = 0963050838) 88.3 mL/min/1.73m2 OMAYRA (test code = OMAYRA) [...] imaging tests). Lab Interpretation (test code = 21889-6) [facility] [id number] 08:11:14* Test Item Value Reference Range Interpretation Comme nts LIPASE (test code = 5643742813) 108 U/L 0-220 Lab Interpretation (test cod e = 94543-5) [facility] [id number] 07:59:28* Test Item Value Reference Range Interpretation Comme nts WBC (test code = 6690-2) 8.95 See_Comment [[employer]] The system which generated this result transmitted reference range: 4.20 - 10.70 10*3/?L. The reference range was not used to interpret this result as normal/abnormal. RBC (test code = 789-8) 5.07 See_Comment [[employer]] The system which generated this result transmitted [...] 32.8 g/dL 31.2-35.0 RDW-SD (test code = 48617-3) 41.1 fL 38.5-51.6 RDW-CV (test code = 788-0) 12.5 % 12.1-15.4 PLT (test code = 777-3) 235 See_Comment [[employer]] The system which generated this result transmitted reference range: 150 - 328 10*3/?L. The reference range was not used to interpret this result as normal/abnormal. MPV (test code = 96527-6) 9.8 fL 9.8-13.0 NRBC/100 WBC (test code = 6155568975) 0.0 See_Comment [[employer]] The system which generated this result transmitted reference range: 0.0 - 10.0 /100 WBCs. The reference range was not used to interpret this result as normal/abnormal. NRBC x10^3 (test code = 4349462315) See_Comment [Automated Smart Devices ssage] The system which generated this result transmitted reference range: 10*3/?L. The reference range was not used to interpret this result as normal/abnormal. GRAN MAT (NEUT) % (test code = 770-8) 56.9 % IMM GRAN % (test code = 9021173588) 0.40 % LYMPH % (test code = 736-9) 29.4 % MONO % (test code = 5905-5) 9.5 % EOS % (test code = 713-8) 3.0 % BASO % (test code = 706-2) 0.8 % GRAN MAT x10^3(ANC) (test code = 0960536529) 5.09 10*3/uL 1.99-6.95 IMM GRAN x10^3 (test code = 9145243824) 0.04 10*3/uL 0.00-0.06 LYMPH x10^3 (test code = 731-0) 2.63 10*3/uL 1.09-3.23 MONO x10^3 (test code = 742-7) 0.85 10*3/uL 0.36-1.02 EOS x10^3 (test code = 711-2) 0.27 10*3/uL 0.06-0.53 BASO x10^3 (test code = 704-7) 0.07 10*3/uL 0.01-0.09 [facility] [id number] 19:05:00 * Test Item Value Reference Range [...] U APPEAR (test code = 3267) clear [facility] [id number] 19:05:00 * Test Item Value Reference Range [...] U APPEAR (test code = 3267) clear [facility] URINALYSIS, [id number] 19:05:00 * Test Item Value Reference Range [...] U APPEAR (test code = 3267) clear [facility] ABDOMEN PELVIS W [id number] 17:53:531. ?No hydronephrosis or nephrolithiasis. 2. ?Mild [...] hernia with mild circumferential distalesophageal thickening (2:16). [place] density within the distal stomach andat the [...] hernia with mild circumferential distalesophageal thickening (2:16). [place] density within the distal stomach andat the [...] right hydrocele.5. Additional findings as above. [facility] [id number] 17:37:38* Test Item Value Reference Range Interpretation Comme nts APPEARANCE (test code = 8944129928) Cloudy Clear A COLOR (test code = 1702349733) Red Yellow A PH (test code = 6925275711) 4.8-8.0 SP GRAVITY (test code = 0202819022) 1.003-1.030 GLU U QUAL (test code = 5328089091) 50 mg/dL Normal A BLOOD (test code = 1701097137) 3+ Negative A KETONES (test code = 8014214974) Negative Negative PROTEIN (test code = 2887-8) 100 mg/dL Negative A UROBILIN (test code = 5065180899) Normal Normal BILIRUBIN (test code = 2647348032) Negative Negative NITRITE (test code = 2457381829) Negative Negative LEUK DIANELYS (test code = 1081356751) Negative Negative RBC/HPF (test code = 7186226390) >182 See_Comment H [Automated messa ge] The system which generated this result transmitted reference range: 0 - 3 HPF. The reference range was not used to interpret this result as normal/abnormal. WBC/HPF (test code = 5110679474) >182 See_Comment H [Automated messa ge] The system which generated this result transmitted reference range: 0 - 5 HPF. The reference range was not used to interpret this result as normal/abnormal. BACTERIA (test code = 7637592220) Moderate Negative A WBC CLUMPS (test code = 2020735102) See_Comment H [Automated messa ge] The system which generated this result transmitted reference range: <=1 HPF. The reference range was not used to interpret this result as normal/abnormal. Lab Interpretation (test code = 96348-3) Abnormal [facility] Metabolic Panel (NA, K, CL, CO2, GLUCOSE, BUN, CREATININE, CA)2020-12-12 17:13:57* Test Item Value Reference Range Interpretation Comme nts NA (test code = 2517905049) 140 mmol/L 135-145 K (test code = 5031815783) 4.5 mmol/L 3.5-5.0 CL (test code = 2253553038) 100 mmol/L 98-108 CO2 TOTAL (test code = 0957752249) 35 mmol/L 23-31 H AGAP (test code = 4795388856) 2-16 BUN (test code = 9916033462) 25 mg/dL 7-23 H GLUCOSE (test code = 6123685670) 114 mg/dL 70-110 H CREATININE (test code = 4180667396) 1.18 mg/dL 0.60-1.25 CALCIUM (test code = 0688479064) 9.0 mg/dL 8.6-10.6 eGFR Calculation (Non-) (test code = 3274805095) mL/min/1.73m2 eGFR Calculation () (test code = 9513483857) mL/min/1.73m2 OMAYRA (test code = OMAYRA) Association [...] imaging tests). Lab Interpretation (test code = 13598-5) Abnormal [facility] with [id number] 16:56:10* Test Item Value Reference Range Interpretation Comme nts WBC (test code = 6690-2) See_Comment [Automated [employer] The system which generated this result transmitted [...] 32.8 g/dL 31.2-35.0 RDW-SD (test code = 27253-5) 42.9 fL 38.5-51.6 RDW-CV (test code = 788-0) 11.9 % 12.1-15.4 L PLT (test code = 777-3) See_Comment [Automated [employer] ge] The system which generated this result transmitted reference range: 150 - 328 10*3/?L. The reference range was not used to interpret this result as normal/abnormal. MPV (test code = 77702-4) 10.8 fL 9.8-13.0 NRBC/100 WBC (test code = 8731750495) See_Comment [Automated [employer] ssage] The system which generated this result transmitted reference range: 0.0 - 10.0 /100 WBCs. The reference range was not used to interpret this result as normal/abnormal. NRBC x10^3 (test code = 9158568452) <0.01 See_Comment [Automated messa ge] The system which generated this result transmitted reference range: 10*3/?L. The reference range was not used to interpret this result as normal/abnormal. GRAN MAT (NEUT) % (test code = 770-8) 63.5 % IMM GRAN % (test code = 1638125297) 0.40 % LYMPH % (test code = 736-9) 23.9 % MONO % (test code = 5905-5) 6.7 % EOS % (test code = 713-8) 4.3 % BASO % (test code = 706-2) 1.2 % GRAN MAT x10^3(ANC) (test code = 5824839238) 4.27 10*3/uL 1.99-6.95 IMM GRAN x10^3 (test code = 7265754394) 0.03 10*3/uL 0.00-0.06 LYMPH x10^3 (test code = 731-0) 1.61 10*3/uL 1.09-3.23 MONO x10^3 (test code = 742-7) 0.45 10*3/uL 0.36-1.02 EOS x10^3 (test code = 711-2) 0.29 10*3/uL 0.06-0.53 BASO x10^3 (test code = 704-7) 0.08 10*3/uL 0.01-0.09 Lab Interpretation (test code = 31060-4) [facility]normal [facility] [id number] 18:56:00 * Test Item Value Reference Range [...] turbid Lab Interpretation (test cod e = 06387-9) Abnormal [facility], [id number] 18:56:00 * Test Item Value Reference Range [...] turbid Lab Interpretation (test cod e = 48462-5) Abnormal [facility]
--- NOTE | 2023-09-08 18:20 | RAD REPORT ---
EXAM DESCRIPTION: RADChest Single View09/08/2023 6:06 pm CLINICAL HISTORY: CHEST PAIN COMPARISON: Chest Single View dated 08/27/2023; Chest Single View dated 08/19/2023; Chest Single View dated 07/04/2023; Chest Single View dated 07/03/2023 TECHNIQUE: Portable AP view of the chest. FINDINGS: The lungs are clear. Hyperlucency and hyperinflation suggestive of COPD. Left chest wall p acer unchanged in position. No pneumothorax or effusion. The cardiomediastinal contours are unremarka ble. IMPRESSION: No acute cardiopulmonary process.
[2023-09-08 18:53] LABS: Absolute Lymphocytes (CBC) 0.6 K/uL (0.7-4.9); Hematocrit 37.9 % (39.6-49.0); Lymphocytes % 6.5 % (15.3-44.8); MCV 96.8 fL (80-100); MPV 8.6 fL (7.6-11.3); Platelets 175 thou/uL (152-406); RBC Red Blood Cell Count 3.92 M/uL (4.33-5.43)
[2023-09-08 19:18] LABS: ALT/SGPT 14 U/L (16-61); AST/SGOT < 4 U/L (15-37); Albumin 2.9 g/dL (3.4-5.0); Alkaline Phosphatase 55 U/L (45-117); BUN Blood Urea Nitrogen 23 mg/dL (7-18); Bicarbonate 37 mEq/L (21-32); Bilirubin Direct 0.1 mg/dL (0-0.2); Bilirubin Indirect, Calculated 0.4 mg/dL (0.2-0.8); Bilirubin Total 0.5 mg/dL (0.2-1.0); Glomerular Filtration Rate 100 ml/min (=/>90); Glucose Level 110 mg/dL (74-106); Magnesium 1.9 mg/dL (1.6-2.4); NT PRO-BNP 291 pg/mL (<125); Potassium 4.2 mEq/L (3.5-5.1); Protein, Total 6.4 g/dL (6.4-8.2); Sodium Level 138 mEq/L (136-145); Troponin High Sensitivity 7.2 pg/mL (<58.9)
[2023-09-08 19:22] LABS: Protime INR 0.99
--- NOTE | 2023-09-08 19:33 | ER ---
Nurse's Notes [facility] Name: Juan C Monge Age: 63 yrs Sex: Male : 1960 Arrival Date: 09/08/2023 Time: 17:33 Bed 16 Private MD: Diagnosis: COPD/ Chronic obstructive pulmonary disease with (acute) exacerbation Presentation: 09/08 17:40 Chief complaint: Patient states: SOB with cough for 2 days. No fever. Slight nausea. No ll1 appetite. Coronavirus screen: Client denies travel out of the [place] in the last 14 days. Ebola Screen: Patient denies travel to an Ebola-affected area in the 21 days before illness onset. Initial Sepsis Screen: Does the patient meet any 2 criteria? No. Patient's initial sepsis screen is negative. Does the patient have a suspected source of infection? Yes: Productive cough/pneumonia. Risk Assessment: Do you want to hurt yourself or someone else? Patient reports no desire to harm self or others. 17:40 Method Of Arrival: Ambulatory ll1 17:40 Acuity: JESSI 3 ll1 17:48 Onset of symptoms was August 29, 2023. ll1 Triage Assessment: 17:40 General: Appears uncomfortable, Behavior is calm, cooperative, appropriate for age. ll1 Respiratory: Reports shortness of breath cough that is labored breathing Onset: The symptoms/episode began/occurred yesterday, the patient has moderate shortness of breath. 17:49 Pain: Denies pain. GI: Reports nausea. ll1 Historical: - Allergies: 17:39 No Known Allergies; ll1 - PMHx: 17:39 Atrial Fib; COPD; CVA; Hyperlipidemia; Hypertension; Myocardial infarction; skull ll1 fracture; - PSHx: 17:39 Appendectomy; pacemaker; ll1 - Immunization history:: Adult Immunizations up to date. - Social history:: Smoking status: Patient reports the use of cigarette tobacco products, smokes one-half pack cigarettes per day. - Family history:: not pertinent. Screenin:58 [facility] ED Fall Risk Assessment (Adult) History of falling in the last 3 months, cm10 including since admission No falls in past 3 months (0 pts) Confusion or Disorientation No (0 pts) Intoxicated or Sedated No (0 pts) Impaired Gait No (0 pts) Mobility Assist Device Used No (0 pt) Altered Elimination No (0 pt) Score/Fall Risk Level 0 - 2 = Low Risk Oriented to surroundings, Maintained a safe environment, Hourly rounding (assess needs \T\ fall precautionary measures) done. Abuse screen: Denies threats or abuse. Denies injuries from another. Nutritional screening: No deficits noted. Tuberculosis screening: No symptoms or risk factors identified. Assessment: 18:57 General: Appears in no apparent distress. comfortable, Behavior is calm, cooperative. cm10 Neuro: No deficits noted. Level of Consciousness is awake, alert, obeys commands, Oriented to person, place, time, situation. Cardiovascular: No deficits noted. Rhythm is regular. Respiratory: Airway is patent Respiratory effort is even, unlabored, Respiratory pattern is regular, symmetrical, Breath sounds are diminished bilaterally. GI: No deficits noted. No signs and/or symptoms were reported involving the gastrointestinal system. : No deficits noted. No signs and/or symptoms were reported regarding the genitourinary system. EENT: No deficits noted. No signs and/or symptoms were reported regarding the EENT system. Derm: No deficits noted. No signs and/or symptoms reported regarding the dermatologic system. Skin is intact, Skin is pink, warm \T\ dry. Musculoskeletal: No deficits noted. Range of motion: intact in all extremities. 19:29 Reassessment: Patient appears in no apparent distress at this time. Patient and/or tm6 family updated on plan of care and expected duration. Pain level reassessed. Patient is alert, oriented x 3, equal unlabored respirations, skin warm/dry/pink. 19:40 Reassessment: Patient and/or family updated on plan of care and expected duration. Pain tm6 level reassessed. Patient is alert, oriented x 3, equal unlabored respirations, skin warm/dry/pink. Patient states feeling better. Vital Signs: 17:48 BP 158 / 69; Pulse 67; Resp 22; Temp 98.1; Pulse Ox 100% ; Weight 68.04 kg; Height 5 ll1 ft. 10 in. ; Pain 0/10; 19:28 BP 151 / 79; Pulse 64; Resp 21; Pulse Ox 96% on R/A; tm6 17:48 Body Mass Index 21.52 (68.04 kg, 177.8 cm) [facility] 17:48 Pain Scale: Adult ll1 ED Course: 17:33 Patient arrived in ED. rg4 17:40 Triage completed. ll1 17:40 Arm band placed on. ll1 17:42 Charlie Valencia MD is Attending Physician. rt 18:08 XRAY Chest (1 view) In Process Unspecified. EDMS 18:14 Patient placed in an exam room, on a stretcher. ll1 18:41 Inserted saline lock: 20 gauge in left forearm, using aseptic technique. Blood ds4 collected. 18:58 Patient has correct armband on for positive identification. Bed in low position. Call cm10 light in reach. Side rails up X2. Provided Education on: ER process and procedures. . Client placed on continuous cardiac and pulse oximetry monitoring. NIBP monitoring applied. 19:28 Kellie Cramer, RN is Primary Nurse. tm6 19:40 No provider procedures requiring assistance completed. IV discontinued, intact, tm6 bleeding controlled, No redness/swelling at site. Pressure dressing applied. Administered Medications: 17:50 CANCELLED (Physician Discretion): metoprolol5 mg IVP every 5 minutes; Hold for SBP < iw 100 or HR < 60. x3 18:42 Drug: MethylPrednisoLONE IVP 125 mg IVP once Route: IVP; Site: left antecubital; cm10 18:42 Drug: DuoNeb Nebulize (3:1) (2.5 mg - 0.5 mg) 3 ml Nebulizer once Route: Nebulizer; cm10 Medication: 18:58 VIS not applicable for this client. cm10 Outcome: 19:32 Discharge ordered by MD. rt 19:40 Discharged to home ambulatory, with family, tm6 19:40 Condition: stable 19:40 Discharge instructions given to patient, family, Instructed on discharge instructions, follow up and referral plans. medication usage, Demonstrated understanding of instructions, follow-up care, medications, Prescriptions given X 2, 19:41 Patient left the ED. tm6 Signatures: Dispatcher [employer] EDMS Master Best ds4 Tata Tristan rg4 Kiera Gregg RN RN ll1 Charlie Valencia MD MD rt Leslie Esqueda RN RN cm10 Kellie Cramer RN RN tm6 Patricia Narayan RN iw Corrections: (The following items were deleted from the chart) 17:49 17:40 Chief complaint: Patient states: SOB ll1 ll1 17:50 17:40 Respiratory: Reports shortness of breath cough that is labored breathing [place] [id number]
--- NOTE | 2023-09-08 19:33 | EDPHYS ---
Physician Documentation [facility] Name: Juan C Monge Age: 63 yrs Sex: Male : 1960 Arrival Date: 09/08/2023 Time: 17:33 Bed 16 Private MD: ED Physician Charlie Valencia HPI: 09/08 19:08 This 63 yrs old Male presents to ER via Ambulatory with complaints of Breathing rt Difficulty. 19:08 Patient with history of COPD presents to the ED with dyspnea for the past 2 to 3 days. rt Reports that nonproductive cough. Denies chest pain. Denies other acute complaints, symptoms are moderate in severity, no other aggravating or elevating factors.. Historical: - Allergies: 17:39 No Known Allergies; ll1 - PMHx: 17:39 Atrial Fib; COPD; CVA; Hyperlipidemia; Hypertension; Myocardial infarction; skull ll1 fracture; - PSHx: 17:39 Appendectomy; pacemaker; ll1 - Immunization history:: Adult Immunizations up to date. - Social history:: Smoking status: Patient reports the use of cigarette tobacco products, smokes one-half pack cigarettes per day. - Family history:: not pertinent. ROS: 19:08 Constitutional: Negative for fever, chills, and weight loss, Cardiovascular: Negative rt for chest pain, palpitations, and edema, Abdomen/GI: Negative for abdominal pain, nausea, vomiting, diarrhea, and constipation, MS/Extremity: Negative for injury and deformity, Skin: Negative for injury, rash, and discoloration, Neuro: Negative for headache, weakness, numbness, tingling, and seizure, Psych: Negative for depression, anxiety, suicide ideation, homicidal ideation, and hallucinations, 19:08 Respiratory: Positive for cough, shortness of breath, Exam: 19:08 Constitutional: This is a well developed, well nourished patient who is awake, alert, rt and in no acute distress. Head/Face: Normocephalic, atraumatic. Chest/axilla: Normal chest wall appearance and motion. Nontender with no deformity. No lesions are appreciated. Cardiovascular: Regular rate and rhythm with a normal S1 and S2. No gallops, murmurs, or rubs. Normal PMI, no JVD. No pulse deficits. Abdomen/GI: Soft, non-tender, with normal bowel sounds. No distension or tympany. No guarding or rebound. No evidence of tenderness throughout. Skin: Warm, dry with normal turgor. Normal color with no rashes, no lesions, and no evidence of cellulitis. MS/ Extremity: Pulses equal, no cyanosis. Neurovascular intact. Full, normal range of motion. Neuro: Awake and alert, GCS 15, oriented to person, place, time, and situation. Cranial nerves II-XII grossly intact. Motor strength 5/5 in all extremities. Sensory grossly intact. Cerebellar exam normal. Normal gait. Psych: Awake, alert, with orientation to person, place and time. Behavior, mood, and affect are within normal limits. 19:08 ECG was reviewed by the Attending Physician. 19:08 Respiratory: Wheezes heard on all lung manriquez, no respiratory distress, Vital Signs: 17:48 BP 158 / 69; Pulse 67; Resp 22; Temp 98.1; Pulse Ox 100% ; Weight 68.04 kg; Height 5 ll1 ft. 10 in. ; Pain 0/10; 19:28 BP 151 / 79; Pulse 64; Resp 21; Pulse Ox 96% on R/A; tm6 17:48 Body Mass Index 21.52 (68.04 kg, 177.8 cm) ll1 17:48 Pain Scale: Adult ll1 MDM: 17:45 Patient medically screened. rt 19:34 Differential diagnosis: CHF exacerbation, Chronic Obstructive Pulmonary Disease rt pneumonia, Pneumothorax pulmonary edema. Antibiotic administration: Not indicated, the patient does not have an appreciated infiltrate. Data reviewed: vital signs, nurses notes, lab test result(s), EKG, radiologic studies. Consideration of Admission/Observation Escalation of care including admission/observation considered. No hypoxia, improving symptoms, patient does not require admission to the hospital.. I considered the following discharge prescriptions or medication management in the emergency department Medications were administered in the Emergency Department. See MAR. Independent interpretation of the following test(s) in the Emergency Department X-Ray: My interpretation is No pneumonia seen on interpretation of x-ray images. Test considered but Not performed: CT: Low suspicion for PE, CT angiogram not indicated. Care significantly affected by the following chronic conditions: Chronic Obstructive Pulmonary Disease. Counseling: I had a detailed discussion with the patient and/or guardian regarding the historical points, exam findings, and any diagnostic results supporting the discharge/admit diagnosis, lab results, radiology results, the need for outpatient follow up, to return to the emergency department if symptoms worsen or persist or if there are any questions or concerns that arise at home. Response to treatment: the patient's symptoms have markedly improved after treatment. 09/08 17:44 Order name: Basic Metabolic Panel; Complete Time: 19:22 rt 09/08 17:44 Order name: CBC with Diff; Complete Time: 19:22 rt 09/08 17:44 Order name: LFT's; Complete Time: :22 rt 09/08 17:44 Order name: Magnesium; Complete Time: 19:22 rt 09/08 17:44 Order name: NT PRO-BNP; Complete Time: 19:22 rt 09/08 17:44 Order name: PT-INR; Complete Time: :22 rt 09/08 17:44 Order name: Troponin HS; Complete Time: :22 rt 09/08 17:44 Order name: TSH; Complete Time: 19:22 rt 09/08 17:44 Order name: XRAY Chest (1 view); Complete Time: 18:22 rt 09/08 17:44 Order name: EKG; Complete Time: 17:45 rt 09/08 17:44 Order name: Cardiac monitoring; Complete Time: 18:57 rt 09/08 17:44 Order name: EKG - Nurse/Tech; Complete Time: 18:57 rt 09/08 17:44 Order name: IV Saline Lock; Complete Time: 18:41 rt 09/08 17:44 Order name: Labs collected and sent; Complete Time: 18:41 rt 09/08 17:44 Order name: O2 Per Protocol; Complete Time: 18:41 rt 09/08 17:44 Order name: O2 Sat Monitoring; Complete Time: 18:41 rt EC:08 Rate is 61 beats/min. Rhythm is regular, Normal Sinus Rhythm with No ectopy. QRS [place] rt is Normal. MS interval is normal. QRS interval is normal. QT interval is normal. No Q waves. T waves are Normal. No ST changes noted. Interpreted by me. Administered Medications: 17:50 CANCELLED (Physician Discretion): metoprolol5 mg IVP every 5 minutes; Hold for SBP < iw 100 or HR < 60. x3 18:42 Drug: MethylPrednisoLONE IVP 125 mg IVP once Route: IVP; Site: left antecubital; cm10 18:42 Drug: DuoNeb Nebulize (3:1) (2.5 mg - 0.5 mg) 3 ml Nebulizer once Route: Nebulizer; cm10 Disposition Summary: 09/08/23 19:32 Discharge Ordered Notes: Location: Home rt Problem: an acute exacerbation rt Symptoms: have improved rt Condition: Stable rt Diagnosis - COPD/ Chronic obstructive pulmonary disease with (acute) exacerbation rt Followup: rt - With: Private Physician - When: 2 - 3 days - Reason: Discharge Instructions: - Discharge Summary Sheet rt - Chronic Obstructive Pulmonary Disease Exacerbation rt Forms: - Medication Reconciliation Form rt - Thank You Letter rt - Antibiotic Education rt - Prescription Opioid Use rt - Patient Portal Instructions rt - Leadership Thank You Letter rt Prescriptions: - ipratropium-albuterol 0.5 mg-3 mg(2.5 mg base)/3 mL Inhalation Solution for Nebulization - nebulize 3 milliliter INHALATION route every 3 to 4 hours as needed for rt shortness of breath; until breathing returns to target peak flow/parameters; 90 milliliter; Refills: 0, Product Selection Permitted - Prednisone 20 mg Oral Tablet - take 2 tablets ORAL route once daily for 5 days; 10 tablet; Refills: 0, Product rt Selection Permitted Signatures: Dispatcher [employer] EDKiera Bass RN RN ll1 Charlie Valencia MD MD rt Leslie Esqueda RN RN cm10 Patricia Narayan RN iw Corrections: (The following items were deleted from the chart) 17:50 17:44 Metoprolol IVP 5 mg IVP every 5 minutes; Hold for SBP < 100 or HR < 60. x3 iw ordered. rt
[2023-09-09 00:19] VITALS: BP 151/79; TEMP 98.1; O2SAT 96
--- NOTE | 2023-09-09 15:07 | EKG ---
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
== END ==
LOC: ER 17:33
DX: J44.1 Chronic obstructive pulmonary disease with (acute) exacerbation (principal); I10 Essential (primary) hypertension; I48.91 Unspecified atrial fibrillation; I25.2 Old myocardial infarction; F17.210 Nicotine dependence, cigarettes, uncomplicated; Z95.0 Presence of cardiac pacemaker
CPT/HCPCS: 93005; 85025; 80048; 36415; 83735; 85610; 80076; 84443; 84484; 83880; 71045; 94640; 96374; 99285; J7613; J7644; J2930

== ENCOUNTER 2023-09-11 20:43 | Observation (INO) | payer OTHER ==
--- OUTSIDE RECORDS SUMMARY | 2023-09-11 20:57 | XMS REPORT | Continuity of Care Document ---
Author Name Unknown Address [address] [facility] [address] [place] [address] [facility] Address [address] [facility] [place] [address] Care Team Providers Care Field Counsel Name Role Phone MILY GOODWIN Primary Care Physician Unavailable HERMINIA OH Attending Clinician Unavailable NOMI MARY Attending Clinician Unavailable NOMI MARY Attending Clinician Unavailable Nomi Mary DO Attending Clinician [phone] Doctor Unassigned, [place] Attending Clinician U elaina Monge RN, Marika Friedman Attending Clinician [phone] MARELY WATTERS Attending Clinician Unavaila MARELY Meehan Attending Clinician Unavaila CARL Bowman Attending Clinician Unavailable CARL ORLANDO Attending Clinician Unavailable MILY GOODWIN Attending Clinician April Mily Ruiz MD Attending Clinician Taylor Frye RN Attending Clinician Unavailab TRAVIS Katz Attending Clinician Unavailable Iza Portillo Attending Clinician [phone] Francisca Bryant DO Attending Clinician +[phone] Travis Zeng MD Attending Clinician +[phone] PRADIP AUSTIN Attending Clinician Unavaila Pradip Du Attending Clinician [phone] HERMINIA CHO Attending Clinician Unavailable Herminia Cho MD Attending Clinician + FRANCISCA BRYANT Attending Clinician Unavailab LOUIS Ham Attending Clinician Unavailable Louis Hong DO Attending Clinician + Bessie Oswald MD Attending Clinician +[phone] RACHAEL FLOWERS Attending Clinician Unavailable Rachael Flowers MD Attending Clinician [phone] LEOBARDO SLOAN Attending Clinician Unavailable Leobardo Sloan MD Attending Clinician +[phone] BESSIE OSWALD Attending Clinician Unavailable STEPHANIE ALMONTE Attending Clinician Unavail able Stephanie Almonte MD Attending Clinician [phone] IZA VARMA Attending Clinician Unavailable Kathia Paula MD Attending Clinician [phone] Agpaito Hackett MD Attending Clinician [phone] María Diaz DO Attending Clinician [phone] MARISOL DEVLIN Attending Clinician Unavailable Marisol Devlin MD Attending Clinician [phone] Dedrick Toth MD Attending Clinician [phone] Cecy Caro LVN Attending Clinician [phone] Carlo Valdez Attending Clinician + [phone] Abi Swan MD Attending Clinician [phone] Clive Contreras MD Attending Clinician [phone] ERNESTO PIPER Attending Clinician Unavailable ERNESTO PIPER Attending Clinician Unavailable Krissy Powers MD Attending Clinician [phone] LEILA CHAPA Attending Clinician Unavailable Leila Chapa MD Attending Clinician [phone] Jeanette Weaver Attending Clinician [phone] [facility] Attending Clinician UnavailGokul Lewis MD Attending Clinician [phone] GOKUL TURNER Attending Clinician Unavailable , Adc Surg Spec Procedure Attending Clinician Unavailable JEANETTE MCDANIEL Attending Clinician Unavailable Chris ZAMORA, Herminia Chandler Attending Clinician UnavailRamesh Baires Attending Clinician [phone] TRAVIS ZENG Admitting Clinician Unavailable Travis Zeng MD Admitting Clinician [phone] STEPHANIE ALMONTE Admitting Clinician Unavail able LOUIS HONG Admitting Clinician Unavailable María Diaz DO Admitting Clinician [phone] MARISOL DEVLIN Admitting Clinician Unavailable IZA VARMA Admitting Clinician Unavailable Clive Contreras MD Admitting Clinician [phone] KRISSY POWERS Admitting Clinician Unavailable Krissy Powers MD Admitting Clinician [phone] MARÍA DIAZ Admitting Clinician Unavailable HERMINIA CHO Admitting Clinician Unavailable SAUD SANDERS Admitting Clinician Unavailable Payers Payer Name Policy Type Policy Number Effective Date Expirati on Date Source [employer] MEDICARE GOLD [id number] 2018 00:00:00 [employer] CHOICE [id number] 2022 00:00:00 Problems Condition Name Condition Details Condition Category Status Onset Date Resolution Date Last Treatment Date Treating Clinician Comments Source Mitral regurgitat ion Mitral regurgitat ion Disease Active 02-16 00:00: 00 [facility] Hypotensio n, unspecifie d hypotensio n type Hypotensio n, unspecifie d hypotensio n type Disease Active 02-15 00:00: 00 [facility] 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 Disease Active 2023-0 5-03 00:00: 00 [facility] Confusion Confusion Disease Active 3-24 00:00: 00 [facility] Shortness of breath Shortness of breath Disease Active 3-11 00:00: 00 [facility] SOB (shortness of breath) SOB (shortness of breath) Disease Active 2-21 00:00: 00 [facility] 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 heart failure Disease Active 2018-09 00:00: 00 [facility] PAF (paroxysma l atrial fibrillati on) PAF (paroxysma l atrial fibrillati on) Disease Active 2018-09 00:00: 00 [facility] NSVT (nonsustai charlette ventricula r tachycardi a) NSVT (nonsustai charlette ventricula r tachycardi a) Disease Active 2018-09 00:00: 00 [facility] Acute on chronic combined systolic and diastolic congestive heart failure Acute on chronic combined systolic and diastolic congestive heart failure Disease Active 2018-09 00:00: 00 [facility] Nonrheumat ic mitral valve stenosis Nonrheumat ic mitral valve stenosis Disease Active 2018-09 00:00: 00 [facility] COPD exacerbati on COPD exacerbati on Disease Active 2018-09 00:00: 00 [facility] Cigarette smoker Cigarette smoker Disease Active 2018-09 00:00: 00 [facility] Troponin I above reference range Troponin I above reference range Disease Active 2018-09 00:00: 00 [facility] Hyponatrem ia Hyponatrem ia Disease Active 2018-09 00:00: 00 [facility] Hypoxia Hypoxia Disease Active 2018-09 00:00: 00 [facility] Acute respirator y distress Acute respirator y distress Disease Active 2018-09 00:00: 00 [facility] Left heart failure Left heart failure Disease Active 2013-09 00:00: 00 [facility] Closed fracture of zygoma Closed fracture of zygoma Disease Active 2013-09 00:00: 00 Overview: Formattin g of this note might be different from the original. Chronic Fracture - not acute [facility] Fall Fall Disease Active 2013-09 00:00: 00 [facility] Atrial fibrillati on Atrial fibrillati on Disease Active 2013-09 00:00: 00 [facility] VT (ventricul ar tachycardi a) VT (ventricul ar tachycardi a) Disease Active 2013-09 00:00: 00 [facility] Allergies, Adverse Reactions, Alerts Allergy Name Allergy Type Status Severity Reaction(s) Onset Date Inactive Date Treating Clinician Comments Source NO KNOWN ALLERGIE S Drug Class Active [facility] Social History Social Habit Start Date Stop Date Quantity Comments Source Gender identity [facility] History of tobacco use Passive smoker [facility] History SDOH Social Connections Get Together [facility] History SDOH Social Connections [facility] History SDOH Social Connections Membership [facility] History SDOH Social Connections Meetings [facility] History of Social function 2023-03-01 00:00:00 2023-03-01 00:00:00 [facility] Alcohol intake 2023-03-01 00:00:00 2023-03-01 00:00:00 Current drinker of alcohol (finding) [facility] History SDOH Housing Unable to Pay 2023-02-18 00:00:00 2023-02-18 00:00:00 2 [facility] History SDOH Housing Places Lived 2023-02-18 00:00:00 2023-02-18 00:00:00 1 [facility] History SDOH Housing Homeless Last Year 2023-02-18 00:00:00 2023-02-18 00:00:00 2 [facility] History SDOH Alcohol Frequency 2023-02-18 00:00:00 2023-02-18 00:00:00 1 [facility] History SDOH Social Connections Phone 2023-02-18 00:00:00 2023-02-18 00:00:00 5 [facility] History SDOH Social Connections Living 2023-02-18 00:00:00 2023-02-18 00:00:00 7 [facility] History SDOH Physical Activity DPW 2023-02-18 00:00:00 2023-02-18 00:00:00 0 [facility] History SDOH Physical Activity MPS 2023-02-18 00:00:00 2023-02-18 00:00:00 0 [facility] History SDOH Financial 2023-02-18 00:00:00 2023-02-18 00:00:00 5 [facility] History SDOH Food Worry 2023-02-18 00:00:00 2023-02-18 00:00:00 1 [facility] History SDOH Food Scarcity 2023-02-18 00:00:00 2023-02-18 00:00:00 1 [facility] History SDOH Transport Med 2023-02-18 00:00:00 2023-02-18 00:00:00 2 [facility] History SDOH Transport Non-Med 2023-02-18 00:00:00 2023-02-18 00:00:00 2 [facility] Exposure to SARS-CoV-2 (event) 2023-02-05 00:00:00 2023-02-15 15:15:00 Not sure [facility] History SDOH Alcohol Std Drinks 2022-12-02 00:00:00 2022-12-02 00:00:00 3 [facility] History SDOH Alcohol Binge 2022-12-02 00:00:00 2022-12-02 00:00:00 1 [facility] Cigarettes smoked current (pack per day) - Reported 2022-11-09 00:00:00 2022-11-09 00:00:00 [facility] Tobacco use and exposure 2022-11-09 00:00:00 2022-11-09 00:00:00 User of smokeless tobacco [facility] Education - What is the highest level of school you have completed or the highest degree you have received? 2022-11-09 00:00:00 2022-11-09 00:00:00 High school graduate [facility] Alcohol Comment 2014-08-27 00:00:00 2014-08-27 00:00:00 8 drinks per day [facility] Sex Assigned At 1960 00:00:00 1960 00:00:00 [facility] Smoking Status Start Date Stop Date Source Smokes tobacco daily 2022-11-09 00:00:00 [facility] Medications Ordered Medication Name Filled Medication Name Start Date Stop Date Current Medication? Ordering Clinician Indication Dosage Frequency Signature (SIG) Comments Components Source khadar sim (INCRUSE ELLIPTA) 62.5 mcg/actuati on DsDv 2022-09 0- 00:00: 00 Yes [id number] 1{puff} Inhale 1 Puff in the morning. [facility] tiotropium 18 mcg inhalation 2022-09 0 00:00: 00 Yes 18ug Inhale 1 capsule in the morning. [facility] tiotropium 18 mcg inhalation 2022-09 0 00:00: 00 Yes 18ug Inhale 1 capsule in the morning. [facility] tiotropium 18 mcg inhalation 2022-09 0 00:00: 00 Yes 18ug Inhale 1 capsule in the morning. [facility] fluticasone propion-bella meteroL (ADVAIR DISKUS) 250-50 mcg/dose inhalation disk 04-19 00:00: 00 Yes 1{puff} Inhale 1 Puff in the morning and 1 Puff in the evening. [facility] tiotropium 18 mcg inhalation 04-19 00:00: 00 Yes 18ug Inhale 1 capsule in the morning. [facility] albuterol 90 mcg/actuati on inhaler 04-19 00:00: 00 Yes 2{puff} Inhale 2 Puffs every 4 (four) hours as needed for Wheezing or Shortness of Breath. [facility] ipratropium -albuteroL 0.5 mg-3 mg(2.5 mg base)/3 mL nebulizer solution 04-19 00:00: 00 Yes [id number] 3mL Inhale 3 mL every 6 (six) hours as needed for Wheezing. [facility] fluticasone propion-bella meteroL (ADVAIR DISKUS) 250-50 mcg/dose inhalation disk 04-19 00:00: 00 Yes 1{puff} Inhale 1 Puff in the morning and 1 Puff in the evening. [facility] tiotropium 18 mcg inhalation 04-19 00:00: 00 Yes 18ug Inhale 1 capsule in the morning. [facility] albuterol 90 mcg/actuati on inhaler 04-19 00:00: 00 Yes 2{puff} Inhale 2 Puffs every 4 (four) hours as needed for Wheezing or Shortness of Breath. [facility] ipratropium -albuteroL 0.5 mg-3 mg(2.5 mg base)/3 mL nebulizer solution 04-19 00:00: 00 Yes [id number] 3mL Inhale 3 mL every 6 (six) hours as needed for Wheezing. [facility] fluticasone propion-belal meteroL (ADVAIR DISKUS) 250-50 mcg/dose inhalation disk 04-19 00:00: 00 Yes 1{puff} Inhale 1 Puff in the morning and 1 Puff in the evening. [facility] tiotropium 18 mcg inhalation 04-19 00:00: 00 Yes 18ug Inhale 1 capsule in the morning. [facility] albuterol 90 mcg/actuati on inhaler 04-19 00:00: 00 Yes 2{puff} Inhale 2 Puffs every 4 (four) hours as needed for Wheezing or Shortness of Breath. [facility] ipratropium -albuteroL 0.5 mg-3 mg(2.5 mg base)/3 mL nebulizer solution 04-19 00:00: 00 Yes [id number] 3mL Inhale 3 mL every 6 (six) hours as needed for Wheezing. [facility] fluticasone propion-bella meteroL (ADVAIR DISKUS) 250-50 mcg/dose inhalation disk 04-19 00:00: 00 Yes 1{puff} Inhale 1 Puff in the morning and 1 Puff in the evening. [facility] albuterol 90 mcg/actuati on inhaler 04-19 00:00: 00 Yes 2{puff} Inhale 2 Puffs every 4 (four) hours as needed for Wheezing or Shortness of Breath. [facility] ipratropium -albuteroL 0.5 mg-3 mg(2.5 mg base)/3 mL nebulizer solution 04-19 00:00: 00 Yes [id number] 3mL Inhale 3 mL every 6 (six) hours as needed for Wheezing. [facility] fluticasone propion-bella meteroL (ADVAIR DISKUS) 250-50 mcg/dose inhalation disk 04-19 00:00: 00 Yes 1{puff} Inhale 1 Puff in the morning and 1 Puff in the evening. [facility] albuterol 90 mcg/actuati on inhaler 04-19 00:00: 00 Yes 2{puff} Inhale 2 Puffs every 4 (four) hours as needed for Wheezing or Shortness of Breath. [facility] ipratropium -albuteroL 0.5 mg-3 mg(2.5 mg base)/3 mL nebulizer solution 04-19 00:00: 00 Yes [id number] 3mL Inhale 3 mL every 6 (six) hours as needed for Wheezing. [facility] fluticasone propion-bella meteroL (ADVAIR DISKUS) 250-50 mcg/dose inhalation disk 04-19 00:00: 00 Yes 1{puff} Inhale 1 Puff in the morning and 1 Puff in the evening. [facility] albuterol 90 mcg/actuati on inhaler 04-19 00:00: 00 Yes 2{puff} Inhale 2 Puffs every 4 (four) hours as needed for Wheezing or Shortness of Breath. [facility] ipratropium -albuteroL 0.5 mg-3 mg(2.5 mg base)/3 mL nebulizer solution 04-19 00:00: 00 Yes [id number] 3mL Inhale 3 mL every 6 (six) hours as needed for Wheezing. [facility] tiotropium 18 mcg inhalation 8 00:00: 00 07-08 00:00 :00 No 18ug Inhale 1 capsule in the morning. [facility] albuterol 2.5 mg /3 mL (0.083 %) nebulizer solution 03-03 00:00: 00 Yes [id number] 2.5mg Inhale 3 mL every 4 (four) hours. May also nebulize one extra every 6 hours. [facility] albuterol 2.5 mg /3 mL (0.083 %) nebulizer solution 03-03 00:00: 00 Yes [id number] 2.5mg Inhale 3 mL every 4 (four) hours. May also nebulize one extra every 6 hours. [facility] albuterol 2.5 mg /3 mL (0.083 %) nebulizer solution 03-03 00:00: 00 Yes [id number] 2.5mg Inhale 3 mL every 4 (four) hours. May also nebulize one extra every 6 hours. [facility] albuterol 2.5 mg /3 mL (0.083 %) nebulizer solution 03-03 00:00: 00 Yes [id number] 2.5mg Inhale 3 mL every 4 (four) hours. May also nebulize one extra every 6 hours. [facility] albuterol 2.5 mg /3 mL (0.083 %) nebulizer solution 03-03 00:00: 00 Yes [id number] 2.5mg Inhale 3 mL every 4 (four) hours. May also nebulize one extra every 6 hours. [facility] albuterol 2.5 mg /3 mL (0.083 %) nebulizer solution 03-03 00:00: 00 Yes [id number] 2.5mg Inhale 3 mL every 4 (four) hours. May also nebulize one extra every 6 hours. [facility] albuterol 2.5 mg /3 mL (0.083 %) nebulizer solution 2022-0 6-15 00:00: 00 Yes [id number] 2.5mg Inhale 3 mL every 4 (four) hours. May also nebulize one extra every 6 hours. [facility] donepeziL 5 mg tablet 2022-0 6-13 00:00: 00 Yes [id number] 5mg Take 1 tablet by mouth in the morning. [facility] memantine 5 mg tablet 2022-0 6-13 00:00: 00 Yes [id number] 5mg Take 1 tablet by mouth in the morning. [facility] donepeziL 5 mg tablet 2022-0 6-13 00:00: 00 Yes [id number] 5mg Take 1 tablet by mouth in the morning. [facility] memantine 5 mg tablet 2022-0 6-13 00:00: 00 Yes [id number] 5mg Take 1 tablet by mouth in the morning. [facility] donepeziL 5 mg tablet 2022-0 6-13 00:00: 00 Yes [id number] 5mg Take 1 tablet by mouth in the morning. [facility] memantine 5 mg tablet 2022-0 6-13 00:00: 00 Yes [id number] 5mg Take 1 tablet by mouth in the morning. [facility] donepeziL 5 mg tablet 2022-0 -13 00:00: 00 Yes [id number] 5mg Take 1 tablet by mouth in the morning. [facility] memantine 5 mg tablet 2022-0 6-13 00:00: 00 Yes [id number] 5mg Take 1 tablet by mouth in the morning. [facility] donepeziL 5 mg tablet 3-0 6-13 00:00: 00 Yes [id number] 5mg Take 1 tablet by mouth in the morning. [facility] memantine 5 mg tablet 3-0 6-13 00:00: 00 Yes [id number] 5mg Take 1 tablet by mouth in the morning. [facility] donepeziL 5 mg tablet 3-0 6-13 00:00: 00 Yes [id number] 5mg Take 1 tablet by mouth in the morning. [facility] memantine 5 mg tablet 2022-0 13 00:00: 00 Yes [id number] 5mg Take 1 tablet by mouth in the morning. [facility] donepeziL 5 mg tablet 2022-0 13 00:00: 00 Yes [id number] 5mg Take 1 tablet by mouth in the morning. [facility] memantine 5 mg tablet 2022-0 13 00:00: 00 Yes [id number] 5mg Take 1 tablet by mouth in the morning. [facility] donepeziL 5 mg tablet 2022-0 03-01 00:00: 00 Yes [id number] 5mg Take 1 tablet by mouth in the morning. [facility] memantine 5 mg tablet 2022-0 03-01 00:00: 00 Yes [id number] 5mg Take 1 tablet by mouth in the morning. [facility] donepeziL 5 mg tablet 2022-0 03-01 00:00: 00 Yes [id number] 5mg Take 1 tablet by mouth in the morning. [facility] memantine 5 mg tablet 2022-0 03-01 00:00: 00 Yes [id number] 5mg Take 1 tablet by mouth in the morning. [facility] busPIRone 10 mg tablet 0 02-18 16:15: 12 Yes 10mg Take 1 tablet by mouth in the morning and 1 tablet in the evening. [facility] rivaroxaban 15 mg tablet 0 02-18 16:15: 12 Yes 15mg Take 1 tablet by mouth in the morning. [facility] ASPIRIN ORAL 2022-0 02-18 16:15: 12 Yes 81mg Take 81 mg by mouth in the morning. tablet [facility] busPIRone 10 mg tablet 2022-0 02-18 16:15: 12 Yes 10mg Take 1 tablet by mouth in the morning and 1 tablet in the evening. [facility] rivaroxaban 15 mg tablet 2022-0 02-18 16:15: 12 Yes 15mg Take 1 tablet by mouth in the morning. [facility] ASPIRIN ORAL 3-0 02-18 16:15: 12 Yes 81mg Take 81 mg by mouth in the morning. tablet [facility] busPIRone 10 mg tablet 2022-0 02-18 16:15: 12 Yes 10mg Take 1 tablet by mouth in the morning and 1 tablet in the evening. [facility] rivaroxaban 15 mg tablet 0 02-18 16:15: 12 Yes 15mg Take 1 tablet by mouth in the morning. [facility] ASP[facility]AL 20[facility]-0 02-18 16:15: 12 Yes 81mg Take 81 mg by mouth in the morning. tablet [facility] busPIRone 10 mg tablet 2022-0 02-18 16:15: 12 Yes 10mg Take 1 tablet by mouth in the morning and 1 tablet in the evening. [facility] rivaroxaban 15 mg tablet 0 02-18 16:15: 12 Yes 15mg Take 1 tablet by mouth in the morning. [facility] ASPIRIN ORAL 2022-0 02-18 16:15: 12 Yes 81mg Take 81 mg by mouth in the morning. tablet [facility] busPIRone 10 mg tablet 0 02-18 16:15: 12 Yes 10mg Take 1 tablet by mouth in the morning and 1 tablet in the evening. [facility] rivaroxaban 15 mg tablet 0 02-18 16:15: 12 Yes 15mg Take 1 tablet by mouth in the morning. [facility] ASPIRIN ORAL 2022-0 02-18 16:15: 12 Yes 81mg Take 81 mg by mouth in the morning. tablet [facility] busPIRone 10 mg tablet 0 02-18 16:15: 12 Yes 10mg Take 1 tablet by mouth in the morning and 1 tablet in the evening. [facility] riv[facility] 15 mg tablet 2022-0 02-18 16:15: 12 Yes 15mg Take 1 tablet by mouth in the morning. [facility] ASPIRIN ORAL 2022-0 02-18 16:15: 12 Yes 81mg Take 81 mg by mouth in the morning. tablet [facility] busPIRone 10 mg tablet 2022-0 02-18 16:15: 12 Yes 10mg Take 1 tablet by mouth in the morning and 1 tablet in the evening. [facility] rivaroxaban 15 mg tablet 2022-0 02-18 16:15: 12 Yes 15mg Take 1 tablet by mouth in the morning. [facility] ASPIRIN ORAL 3-0 02-18 16:15: 12 Yes 81mg Take 81 mg by mouth in the morning. tablet [facility] busPIRone 10 mg tablet 2022-0 02-18 16:15: 12 Yes 10mg Take 1 tablet by mouth in the morning and 1 tablet in the evening. [facility] rivaroxaban 15 mg tablet 2022-0 02-18 16:15: 12 Yes 15mg Take 1 tablet by mouth in the morning. [facility] ASPIRIN ORAL 2022-0 02-18 16:15: 12 Yes 81mg Take 81 mg by mouth in the morning. tablet [facility] busPIRone 10 mg tablet 2022-0 02-18 16:15: 12 Yes 10mg Take 1 tablet by mouth in the morning and 1 tablet in the evening. [facility] rivaroxaban 15 mg tablet 0 02-18 16:15: 12 Yes 15mg Take 1 tablet by mouth in the morning. [facility] ASPIRIN ORAL 2022-0 02-18 16:15: 12 Yes 81mg Take 81 mg by mouth in the morning. tablet [facility] busPIRone 10 mg tablet 2022-0 02-18 16:15: 12 Yes 10mg Take 1 tablet by mouth in the morning and 1 tablet in the evening. [facility] rivaroxaban 15 mg tablet 2022-0 02-18 16:15: 12 Yes 15mg Take 1 tablet by mouth in the morning. [facility] ASPIRIN ORAL 3-0 02-18 16:15: 12 Yes 81mg Take 81 mg by mouth in the morning. tablet [facility] busPIRone 10 mg tablet 2022-0 02-18 16:15: 12 Yes 10mg Take 1 tablet by mouth in the morning and 1 tablet in the evening. [facility] rivaroxaban 15 mg tablet 2022-0 02-18 16:15: 12 Yes 15mg Take 1 tablet by mouth in the morning. [facility] ASPIRIN ORAL 0 02-18 16:15: 12 Yes 81mg Take 81 mg by mouth in the morning. tablet [facility] busPIRone 10 mg tablet 02-18 16:15: 12 Yes 10mg Take 1 tablet by mouth in the morning and 1 tablet in the evening. [facility] rivaroxaban 15 mg tablet 0 02-18 16:15: 12 Yes 15mg Take 1 tablet by mouth in the morning. [facility] ASPIRIN ORAL 0 02-18 16:15: 12 Yes 81mg Take 81 mg by mouth in the morning. tablet [facility] busPIRone 10 mg tablet 0 02-18 16:15: 12 Yes 10mg Take 1 tablet by mouth in the morning and 1 tablet in the evening. [facility] rivaroxaban 15 mg tablet 02-18 16:15: 12 Yes 15mg Take 1 tablet by mouth in the morning. [facility] ASPIRIN ORAL 02-18 16:15: 12 Yes 81mg Take 81 mg by mouth in the morning. tablet [facility] predniSONE 20 mg tablet 0 02-18 00:00: 00 02-22 04:59 :00 No [id number] 40mg Take 2 tablets by mouth in the morning for 3 days. [facility] predniSONE 20 mg tablet 0 02-18 00:00: 00 02-22 04:59 :00 No [id number] 40mg Take 2 tablets by mouth in the morning for 3 days. [facility] predniSONE 20 mg tablet 02-18 00:00: 00 02-22 04:59 :00 No [id number] 40mg Take 2 tablets by mouth in the morning for 3 days. [facility] midodrine 5 mg tablet 02-17 00:00: 00 Yes [id number] 5mg Take 1 tablet by mouth every 8 (eight) hours as needed (Hypotensi on SBP <95 or DBP <50). [facility] midodrine 5 mg tablet 02-17 00:00: 00 Yes [id number] 5mg Take 1 tablet by mouth every 8 (eight) hours as needed (Hypotensi on SBP <95 or DBP <50). [facility] midodrine 5 mg tablet 02-17 00:00: 00 Yes [id number] 5mg Take 1 tablet by mouth every 8 (eight) hours as needed (Hypotensi on SBP <95 or DBP <50). [facility] midodrine 5 mg tablet 02-17 00:00: 00 Yes [id number] 5mg Take 1 tablet by mouth every 8 (eight) hours as needed (Hypotensi on SBP <95 or DBP <50). [facility] midodrine 5 mg tablet 02-17 00:00: 00 Yes [id number] 5mg Take 1 tablet by mouth every 8 (eight) hours as needed (Hypotensi on SBP <95 or DBP <50). [facility] midodrine 5 mg tablet 02-17 00:00: 00 Yes [id number] 5mg Take 1 tablet by mouth every 8 (eight) hours as needed (Hypotensi on SBP <95 or DBP <50). [facility] midodrine 5 mg tablet 02-17 00:00: 00 Yes [id number] 5mg Take 1 tablet by mouth every 8 (eight) hours as needed (Hypotensi on SBP <95 or DBP <50). [facility] midodrine 5 mg tablet 02-17 00:00: 00 Yes [id number] 5mg Take 1 tablet by mouth every 8 (eight) hours as needed (Hypotensi on SBP <95 or DBP <50). [facility] midodrine 5 mg tablet 02-17 00:00: 00 Yes [id number] 5mg Take 1 tablet by mouth every 8 (eight) hours as needed (Hypotensi on SBP <95 or DBP <50). [facility] midodrine 5 mg tablet 02-17 00:00: 00 Yes [id number] 5mg Take 1 tablet by mouth every 8 (eight) hours as needed (Hypotensi on SBP <95 or DBP <50). [facility] midodrine 5 mg tablet 0 02-17 00:00: 00 Yes [id number] 5mg Take 1 tablet by mouth every 8 (eight) hours as needed (Hypotensi on SBP <95 or DBP <50). [facility] midodrine 5 mg tablet 0 02-17 00:00: 00 Yes [id number] 5mg Take 1 tablet by mouth every 8 (eight) hours as needed (Hypotensi on SBP <95 or DBP <50). [facility] midodrine 5 mg tablet 02-17 00:00: 00 Yes [id number] 5mg Take 1 tablet by mouth every 8 (eight) hours as needed (Hypotensi on SBP <95 or DBP <50). [facility] midodrine (PROAMATINE ) tablet 5 mg 02-16 19:00: 00 Yes 5mg 5 mg, Oral, Q8H, First dose on Tue02/16/23 at 1400, Until Discontinu ed, Routine [facility] rivaroxaban (XARELTO) tablet 15 mg 02-16 14:00: 00 Yes 15mg 15 mg, Oral, DAILY, First dose on Tue02/16/23 at 0900, Until Discontinu ed, Routine [facility] montelukast (SINGULAIR) tablet 10 mg 02-16 14:00: 00 Yes 10mg 10 mg, Oral, DAILY, First dose on Tue02/16/23 at 0900, Until Discontinu ed, Routine [facility] memantine (NAMENDA) tablet 5 mg 02-16 14:00: 00 Yes 5mg 5 mg, Oral, DAILY, First dose on Tue02/16/23 at 0900, Until Discontinu ed, Routine
front desk team member approving Restricted medication : DEDRICK TOTH [facility] donepeziL (ARICEPT) tablet 5 mg 02-16 14:00: 00 Yes 5mg 5 mg, Oral, DAILY, First dose on Tue02/16/23 at 0900, Until Discontinu ed, Routine [facility] aspirin EC tablet 81 mg 02-16 14:00: 00 Yes 81mg 81 mg, Oral, DAILY, First dose on Tue02/16/23 at 0900, Until Discontinu ed [facility] docusate (COLACE) capsule 100 mg 02-16 14:00: 00 Yes 100mg 100 mg, Oral, DAILY, First dose on Tue02/16/23 at 0900, Until Discontinu ed, Routine [facility] predniSONE (DELTASONE) tablet 40 mg 02-16 14:00: 00 02-21 13:59 :00 No 40mg 40 mg, Oral, DAILY, 5 doses, First dose on Tue02/16/23 at 0900, Last dose on Tue02/20/23 at 0900, Routine [facility] sulfur hexafluorid e microsphr (LUMASON) injection 5 mL 02-16 14:00: 00 02-16 14:00 :00 No [id number] 5mL 5 mL, Intravenou s, ONCE, 1 dose, On Tue02/16/23 at 0900, Routine
front desk team member approving Restricted medication : STEFFANIE REYES [facility] budesonide- formoteroL (SYMBICORT) 160-4.5 mcg/actuati on inhaler 2 Puff 02-16 13:00: 00 Yes 2{puff} 2 Puff, Inhalation , BID, First dose on Tue02/16/23 at 0800, Until Discontinu ed [facility] busPIRone (BUSPAR) tablet 10 mg 02-16 13:00: 00 Yes 10mg 10 mg, Oral, BID, First dose on Tue02/16/23 at 0800, Until Discontinu ed, Routine [facility] methylpredn isolone sod succ (SOLU-MEDRO L) injection 60 mg 02-16 05:43: 00 02-16 05:51 :00 No 60mg 60 mg, Intravenou s, ONCE, 1 dose, On Tue02/16/23 at 0045, 2 mL [facility] levoFLOXaci n in D5W (LEVAQUIN) 500 mg/100 [...]
Re stricted use approved by: ADC PROVIDER [facility] doxycycline hyclate (Vibramycin ) capsule 100 mg 02-16 01:02: 11 02-16 21:57 :07 No 100mg 100 mg, Oral, Q12H ABX, 10 doses, First dose on Tue02/15/23 at 2015, Last dose on Tue02/20/23 at 0815, MICHAEL
Re ason for Anti-Infec tive: Documented Infection< br>Documen anirudh Infection Site: Respirator y
Durat ion of Therapy: 7 days [facility] NaCl 0.9% (NS) IV infusion 1,000 mL 02-16 01:00: 00 02-16 12:47 :05 No 1000mL at 100 mL/hr, IV Infusion, CONTINUOUS , Starting on Tue02/15/23 at 2000, Until Tue02/16/23 at 0747, Routine [facility] ipratropium -albuteroL (DUONEB) 0.5 mg-3 mg(2.5 mg base)/3 mL nebulizer solution 3 mL 02-16 00:53: 35 Yes 3mL 3 mL, Inhalation , Q6HPRN, Starting on Tue02/15/23 at 1953, Until Discontinu ed, Routine, Wheezing, Shortness of Breath [facility] HYDROcodone -acetaminop hen (NORCO) 10-325 mg tablet 1 tablet 02-16 00:52: 26 Yes 1{tbl} 1 tablet, Oral, Q6HPRN, Starting on Tue02/15/23 at 1951, Until Discontinu ed, Routine, Pain (scale 7-10) [facility] traMADoL (ULTRAM) tablet 50 mg 02-16 00:52: 22 02-18 00:51 :22 No 50mg 50 mg, Oral, Q8HPRN, Starting on Tue02/15/23 at 1951, Until Elizabeth 02/17/23 at 1950, Routine, Pain (scale 4-6) [facility] acetaminoph en (TYLENOL) tablet 650 mg 02-16 00:52: 16 Yes 650mg 650 mg, Oral, Q6HPRN, Starting on Tue02/15/23 at 1951, Until Discontinu ed, Routine, Pain (scale 1-3) [facility] NaCl 0.9% (NS) bolus infusion 1,000 mL 02-15 22:15: 00 02-15 22:51 :00 No 1000mL at 999 mL/hr, 1,000 mL, IV Infusion, ONCE, 1 dose, On Tue02/15/23 at 1715, [facility] NaCl 0.9% (NS) bolus infusion 1,000 mL 02-15 21:30: 00 02-15 22:43 :00 No 1000mL at 999 mL/hr, 1,000 mL, IV Infusion, ONCE, 1 dose, On Tue02/15/23 at 1630, [facility] NaCl 0.9% (NS) bolus infusion 1,000 mL 02-15 20:45: 00 02-15 22:43 :00 No 1000mL at 999 mL/hr, 1,000 mL, IV Infusion, ONCE, 1 dose, On Tue02/15/23 at 1545, [facility] ipratropium -albuteroL (DUONEB) 0.5 mg-3 mg(2.5 mg base)/3 mL nebulizer solution 3 mL 02-05 22:15: 00 02-06 10:14 :00 No 3mL 3 mL, Inhalation , ONCE, 1 dose, On 02/05/23 at 1715, [facility] ipratropium -albuteroL (DUONEB) 0.5 mg-3 mg(2.5 mg base)/3 mL nebulizer solution 3 mL 02-05 21:15: 00 02-05 20:17 :00 No 3mL 3 mL, Inhalation , ONCE, 1 dose, On 02/05/23 at 1615, [facility] predniSONE (DELTASONE) tablet 40 mg 02-05 20:15: 00 02-05 20:18 :00 No 40mg 40 mg, Oral, ONCE, 1 dose, On 02/05/23 at 1515, [facility] levalbutero l (XOPENEX) nebulizer solution 2.5 mg 02-04 21:15: 00 02-04 20:31 :00 No 2.5mg 2.5 mg, Inhalation , ONCE, 1 dose, On Tue02/04/23 at 1615, Routine [facility] ipratropium (ATROVENT) 0.02 % nebulizer solution 0.5 mg 02-04 21:15: 00 02-04 20:31 :00 No .5mg 0.5 mg, Inhalation , ONCE, 1 dose, On Tue02/04/23 at 1615, [facility] albuterol 90 mcg/actuati on inhaler 02-04 00:00: 00 Yes [id number] 2{puff} Inhale 2 Puffs every 4 (four) hours as needed for Wheezing or Shortness of Breath. [facility] albuterol 90 mcg/actuati on inhaler 02-04 00:00: 00 Yes [id number] 2{puff} Inhale 2 Puffs every 4 (four) hours as needed for Wheezing or Shortness of Breath. [facility] albuterol 90 mcg/actuati on inhaler 02-04 00:00: 00 Yes [id number] 2{puff} Inhale 2 Puffs every 4 (four) hours as needed for Wheezing or Shortness of Breath. [facility] albuterol 90 mcg/actuati on inhaler 02-04 00:00: 00 Yes [id number] 2{puff} Inhale 2 Puffs every 4 (four) hours as needed for Wheezing or Shortness of Breath. [facility] albuterol 90 mcg/actuati on inhaler 02-04 00:00: 00 Yes [id number] 2{puff} Inhale 2 Puffs every 4 (four) hours as needed for Wheezing or Shortness of Breath. [facility] albuterol 90 mcg/actuati on inhaler 02-04 00:00: 00 Yes [id number] 2{puff} Inhale 2 Puffs every 4 (four) hours as needed for Wheezing or Shortness of Breath. [facility] albuterol 90 mcg/actuati on inhaler 02-04 00:00: 00 Yes [id number] 2{puff} Inhale 2 Puffs every 4 (four) hours as needed for Wheezing or Shortness of Breath. [facility] albuterol 90 mcg/actuati on inhaler 02-04 00:00: 00 Yes [id number] 2{puff} Inhale 2 Puffs every 4 (four) hours as needed for Wheezing or Shortness of Breath. [facility] albuterol 90 mcg/actuati on inhaler 02-04 00:00: 00 Yes [id number] 2{puff} Inhale 2 Puffs every 4 (four) hours as needed for Wheezing or Shortness of Breath. [facility] albuterol 90 mcg/actuati on inhaler 02-04 00:00: 00 Yes [id number] 2{puff} Inhale 2 Puffs every 4 (four) hours as needed for Wheezing or Shortness of Breath. [facility] albuterol 90 mcg/actuati on inhaler 02-04 00:00: 00 04-19 00:00 :00 No [id number] 2{puff} Inhale 2 Puffs every 4 (four) hours as needed for Wheezing or Shortness of Breath. [facility] albuterol 90 mcg/actuati on inhaler 02-04 00:00: 00 04-19 00:00 :00 No [id number] 2{puff} Inhale 2 Puffs every 4 (four) hours as needed for Wheezing or Shortness of Breath. [facility] ipratropium -albuteroL (DUONEB) 0.5 mg-3 mg(2.5 mg base)/3 mL nebulizer solution 3 mL 02-03 21:00: 00 Yes 3mL 3 mL, Inhalation , QID, First dose on Tue02/03/23 at 1600, Until Discontinu ed, Routine [facility] methylpredn isolone sod succ (SOLU-MEDRO L) injection 125 mg 02-03 18:45: 00 02-03 18:16 :00 No 125mg 125 mg, Intravenou s, ONCE, 1 dose, On Tue02/03/23 at 1345, 2 mL [facility] ipratropium -albuteroL (DUONEB) 0.5 mg-3 mg(2.5 mg base)/3 mL nebulizer solution 3 mL 02-02 23:15: 00 02-02 22:13 :00 No 3mL 3 mL, Inhalation , ONCE, 1 dose, On Tue02/02/23 at 1815, Routine [facility] albuterol 90 mcg/actuati on inhaler 01-31 00:00: 00 Yes [id number] 2{puff} Inhale 2 Puffs every 4 (four) hours as needed for Wheezing, Shortness of Breath or Bronchospa sm. [facility] fluticasone propion-bella meteroL (ADVAIR DISKUS) 250-50 mcg/dose inhalation disk 01-31 00:00: 00 Yes [id number] 1{puff} Inhale 1 Puff in the morning and 1 Puff in the evening. [facility] montelukast 10 mg tablet 01-31 00:00: 00 Yes [id number] 10mg Take 1 tablet by mouth in the morning. [facility] tiotropium 18 mcg inhalation 01-31 00:00: 00 Yes [id number] 18ug Inhale 1 capsule in the morning. [facility] albuterol 90 mcg/actuati on inhaler 01-31 00:00: 00 Yes [id number] 2{puff} Inhale 2 Puffs every 4 (four) hours as needed for Wheezing, Shortness of Breath or Bronchospa sm. [facility] fluticasone propion-bella meteroL (ADVAIR DISKUS) 250-50 mcg/dose inhalation disk 01-31 00:00: 00 Yes [id number] 1{puff} Inhale 1 Puff in the morning and 1 Puff in the evening. [facility] montelukast 10 mg tablet 01-31 00:00: 00 Yes [id number] 10mg Take 1 tablet by mouth in the morning. [facility] tiotropium 18 mcg inhalation 01-31 00:00: 00 Yes [id number] 18ug Inhale 1 capsule in the morning. [facility] albuterol 90 mcg/actuati on inhaler 01-31 00:00: 00 Yes [id number] 2{puff} Inhale 2 Puffs every 4 (four) hours as needed for Wheezing, Shortness of Breath or Bronchospa sm. [facility] fluticasone propion-bella meteroL (ADVAIR DISKUS) 250-50 mcg/dose inhalation disk 01-31 00:00: 00 Yes [id number] 1{puff} Inhale 1 Puff in the morning and 1 Puff in the evening. [facility] montelukast 10 mg tablet 01-31 00:00: 00 Yes [id number] 10mg Take 1 tablet by mouth in the morning. [facility] tiotropium 18 mcg inhalation 0 15 00:00: 00 Yes [id number] 18ug Inhale 1 capsule in the morning. [facility] albuterol 90 mcg/actuati on inhaler 2022-0 15 00:00: 00 Yes [id number] 2{puff} Inhale 2 Puffs every 4 (four) hours as needed for Wheezing, Shortness of Breath or Bronchospa sm. [facility] fluticasone propion-bella meteroL (ADVAIR DISKUS) 250-50 mcg/dose inhalation disk 2022-0 15 00:00: 00 Yes [id number] 1{puff} Inhale 1 Puff in the morning and 1 Puff in the evening. [facility] montelukast 10 mg tablet 2022-0 15 00:00: 00 Yes [id number] 10mg Take 1 tablet by mouth in the morning. [facility] tiotropium 18 mcg inhalation 2022-0 -15 00:00: 00 Yes [id number] 18ug Inhale 1 capsule in the morning. [facility] fluticasone propion-bella meteroL (ADVAIR DISKUS) 250-50 mcg/dose inhalation disk 2022-0 15 00:00: 00 Yes [id number] 1{puff} Inhale 1 Puff in the morning and 1 Puff in the evening. [facility] montelukast 10 mg tablet 2022-0 15 00:00: 00 Yes [id number] 10mg Take 1 tablet by mouth in the morning. [facility] tiotropium 18 mcg inhalation 2022-0 15 00:00: 00 Yes [id number] 18ug Inhale 1 capsule in the morning. [facility] fluticasone propion-bella meteroL (ADVAIR DISKUS) 250-50 mcg/dose inhalation disk 2022-0 15 00:00: 00 Yes [id number] 1{puff} Inhale 1 Puff in the morning and 1 Puff in the evening. [facility] montelukast 10 mg tablet 2022-0 15 00:00: 00 Yes [id number] 10mg Take 1 tablet by mouth in the morning. [facility] tiotropium 18 mcg inhalation 2022-0 -15 00:00: 00 Yes [id number] 18ug Inhale 1 capsule in the morning. [facility] fluticasone propion-bella meteroL (ADVAIR DISKUS) 250-50 mcg/dose inhalation disk 3-0 5-15 00:00: 00 Yes [id number] 1{puff} Inhale 1 Puff in the morning and 1 Puff in the evening. [facility] montelukast 10 mg tablet 3-0 5-15 00:00: 00 Yes [id number] 10mg Take 1 tablet by mouth in the morning. [facility] tiotropium 18 mcg inhalation 3-0 5-15 00:00: 00 Yes [id number] 18ug Inhale 1 capsule in the morning. [facility] fluticasone propion-bella meteroL (ADVAIR DISKUS) 250-50 mcg/dose inhalation disk 3-0 5-15 00:00: 00 Yes [id number] 1{puff} Inhale 1 Puff in the morning and 1 Puff in the evening. [facility] montelukast 10 mg tablet 2022-0 -15 00:00: 00 Yes [id number] 10mg Take 1 tablet by mouth in the morning. [facility] tiotropium 18 mcg inhalation 3-0 5-15 00:00: 00 Yes [id number] 18ug Inhale 1 capsule in the morning. [facility] fluticasone propion-bella meteroL (ADVAIR DISKUS) 250-50 mcg/dose inhalation disk 3-0 5-15 00:00: 00 Yes [id number] 1{puff} Inhale 1 Puff in the morning and 1 Puff in the evening. [facility] montelukast 10 mg tablet 3-0 5-15 00:00: 00 Yes [id number] 10mg Take 1 tablet by mouth in the morning. [facility] tiotropium 18 mcg inhalation 3-0 5-15 00:00: 00 Yes [id number] 18ug Inhale 1 capsule in the morning. [facility] fluticasone propion-bella meteroL (ADVAIR DISKUS) 250-50 mcg/dose inhalation disk 3-0 5-15 00:00: 00 Yes [id number] 1{puff} Inhale 1 Puff in the morning and 1 Puff in the evening. [facility] montelukast 10 mg tablet 2022-0 -15 00:00: 00 Yes [id number] 10mg Take 1 tablet by mouth in the morning. [facility] tiotropium 18 mcg inhalation 3-0 5-15 00:00: 00 Yes [id number] 18ug Inhale 1 capsule in the morning. [facility] fluticasone propion-bella meteroL (ADVAIR DISKUS) 250-50 mcg/dose inhalation disk 3-0 5-15 00:00: 00 Yes [id number] 1{puff} Inhale 1 Puff in the morning and 1 Puff in the evening. [facility] montelukast 10 mg tablet 2022-0 -15 00:00: 00 Yes [id number] 10mg Take 1 tablet by mouth in the morning. [facility] tiotropium 18 mcg inhalation 2022-0 -15 00:00: 00 Yes [id number] 18ug Inhale 1 capsule in the morning. [facility] fluticasone propion-bella meteroL (ADVAIR DISKUS) 250-50 mcg/dose inhalation disk 2022-0 15 00:00: 00 Yes [id number] 1{puff} Inhale 1 Puff in the morning and 1 Puff in the evening. [facility] montelukast 10 mg tablet 2022-0 -15 00:00: 00 Yes [id number] 10mg Take 1 tablet by mouth in the morning. [facility] tiotropium 18 mcg inhalation 3-0 5-15 00:00: 00 Yes [id number] 18ug Inhale 1 capsule in the morning. [facility] fluticasone propion-bella meteroL (ADVAIR DISKUS) 250-50 mcg/dose inhalation disk 3-0 5-15 00:00: 00 Yes [id number] 1{puff} Inhale 1 Puff in the morning and 1 Puff in the evening. [facility] montelukast 10 mg tablet 2023-0 5-15 00:00: 00 Yes [id number] 10mg Take 1 tablet by mouth in the morning. [facility] tiotropium 18 mcg inhalation 2022-0 5-15 00:00: 00 Yes [id number] 18ug Inhale 1 capsule in the morning. [facility] fluticasone propion-bella meteroL (ADVAIR DISKUS) 250-50 mcg/dose inhalation disk 2022-0 5-15 00:00: 00 Yes [id number] 1{puff} Inhale 1 Puff in the morning and 1 Puff in the evening. [facility] montelukast 10 mg tablet 2022-0 5-15 00:00: 00 Yes [id number] 10mg Take 1 tablet by mouth in the morning. [facility] tiotropium 18 mcg inhalation 2022-0 5-15 00:00: 00 Yes [id number] 18ug Inhale 1 capsule in the morning. [facility] montelukast 10 mg tablet 2022-0 -15 00:00: 00 Yes [id number] 10mg Take 1 tablet by mouth in the morning. [facility] montelukast 10 mg tablet 2022-0 -15 00:00: 00 Yes [id number] 10mg Take 1 tablet by mouth in the morning. [facility] montelukast 10 mg tablet 2022-0 -15 00:00: 00 Yes [id number] 10mg Take 1 tablet by mouth in the morning. [facility] montelukast 10 mg tablet 2022-0 5-15 00:00: 00 Yes [id number] 10mg Take 1 tablet by mouth in the morning. [facility] montelukast 10 mg tablet 3-0 5-15 00:00: 00 Yes [id number] 10mg Take 1 tablet by mouth in the morning. [facility] montelukast 10 mg tablet 3-0 5-15 00:00: 00 Yes [id number] 10mg Take 1 tablet by mouth in the morning. [facility] fluticasone propion-bella meteroL (ADVAIR DISKUS) 250-50 mcg/dose inhalation disk 15 00:00: 00 04-19 00:00 :00 No [id number] 1{puff} Inhale 1 Puff in the morning and 1 Puff in the evening. [facility] tiotropium 18 mcg inhalation 15 00:00: 00 04-19 00:00 :00 No [id number] 18ug Inhale 1 capsule in the morning. [facility] fluticasone propion-bella meteroL (ADVAIR DISKUS) 250-50 mcg/dose inhalation disk 01-31 00:00: 00 04-19 00:00 :00 No [id number] 1{puff} Inhale 1 Puff in the morning and 1 Puff in the evening. [facility] tiotropium 18 mcg inhalation 01-31 00:00: 00 04-19 00:00 :00 No [id number] 18ug Inhale 1 capsule in the morning. [facility] albuterol 90 mcg/actuati on inhaler 01-31 00:00: 00 02-04 00:00 :00 No [id number] 2{puff} Inhale 2 Puffs every 4 (four) hours as needed for Wheezing, Shortness of Breath or Bronchospa sm. [facility] ipratropium -albuteroL (DUONEB) 0.5 mg-3 mg(2.5 mg base)/3 mL nebulizer solution 3 mL 01-29 14:30: 00 01-29 13:29 :00 No 3mL 3 mL, Inhalation , ONCE, 1 dose, On 01/29/23 at 0930, MICHAEL [facility] predniSONE (DELTASONE) tablet 60 mg 01-29 13:30: 00 01-29 13:22 :00 No 60mg 60 mg, Oral, ONCE, 1 dose, On 01/29/23 at 0830, MICHAEL [facility] ipratropium -albuteroL (DUONEB) 0.5 mg-3 mg(2.5 mg base)/3 mL nebulizer solution 3 mL 01-27 13:00: 00 Yes 3mL 3 mL, Inhalation , QID, First dose on Tue01/27/23 at 0800, Until Discontinu ed, Routine [facility] ipratropium -albuteroL (DUONEB) 0.5 mg-3 mg(2.5 mg base)/3 mL nebulizer solution 3 mL 01-24 18:00: 00 01-24 18:15 :00 No 3mL 3 mL, Inhalation , ONCE, 1 dose, On Tue01/24/23 at 1300, MICHAEL [facility] furosemide (LASIX) injection 40 mg 01-24 18:00: 00 01-24 18:42 :00 No 40mg 40 mg, IV Push, ONCE, 1 dose, On Tue01/24/23 at 1300, MICHAEL [facility] aspirin tablet 325 mg 01-24 18:00: 00 01-24 18:44 :00 No 325mg 325 mg, Oral, ONCE, 1 dose, On Tue01/24/23 at 1300, STAT [facility] busPIRone 10 mg tablet 01-24 15:48: 43 Yes 10mg Take 1 tablet by mouth in the morning and 1 tablet in the evening. [facility] rivaroxaban 15 mg tablet 01-24 15:48: 43 Yes 15mg Take 1 tablet by mouth in the morning. [facility] ASPIRIN ORAL 01-24 15:48: 43 Yes 81mg Take 81 mg by mouth in the morning. tablet [facility] busPIRone 10 mg tablet 01-24 15:48: 43 Yes 10mg Take 1 tablet by mouth in the morning and 1 tablet in the evening. [facility] rivaroxaban 15 mg tablet 01-24 15:48: 43 Yes 15mg Take 1 tablet by mouth in the morning. [facility] ASPIRIN ORAL 01-24 15:48: 43 Yes 81mg Take 81 mg by mouth in the morning. tablet [facility] busPIRone 10 mg tablet 2023-0 5-08 15:48: 43 Yes 10mg Take 1 tablet by mouth in the morning and 1 tablet in the evening. [facility] rivaroxaban 15 mg tablet 2023-0 5-08 15:48: 43 Yes 15mg Take 1 tablet by mouth in the morning. [facility] ASPIRIN ORAL 2023-0 5-08 15:48: 43 Yes 81mg Take 81 mg by mouth in the morning. tablet [facility] busPIRone 10 mg tablet 3-0 5-08 15:48: 43 Yes 10mg Take 1 tablet by mouth in the morning and 1 tablet in the evening. [facility] rivaroxaban 15 mg tablet 2022-0 5-08 15:48: 43 Yes 15mg Take 1 tablet by mouth in the morning. [facility] ASPIRIN ORAL 2023-0 5-08 15:48: 43 Yes 81mg Take 81 mg by mouth in the morning. tablet [facility] busPIRone 10 mg tablet 3-0 5-08 15:48: 43 Yes 10mg Take 1 tablet by mouth in the morning and 1 tablet in the evening. [facility] rivaroxaban 15 mg tablet 2022-0 5-08 15:48: 43 Yes 15mg Take 1 tablet by mouth in the morning. [facility] ASPIRIN ORAL 2023-0 5-08 15:48: 43 Yes 81mg Take 81 mg by mouth in the morning. tablet [facility] busPIRone 10 mg tablet 3-0 5-08 15:48: 43 Yes 10mg Take 1 tablet by mouth in the morning and 1 tablet in the evening. [facility] rivaroxaban 15 mg tablet 3-0 5-08 15:48: 43 Yes 15mg Take 1 tablet by mouth in the morning. [facility] ASPIRIN ORAL 2023-0 5-08 15:48: 43 Yes 81mg Take 81 mg by mouth in the morning. tablet [facility] busPIRone 10 mg tablet 2023-0 5-08 15:48: 43 Yes 10mg Take 1 tablet by mouth in the morning and 1 tablet in the evening. [facility] rivaroxaban 15 mg tablet 2023-0 5-08 15:48: 43 Yes 15mg Take 1 tablet by mouth in the morning. [facility] ASPIRIN ORAL 2023-0 5-08 15:48: 43 Yes 81mg Take 81 mg by mouth in the morning. tablet [facility] busPIRone 10 mg tablet 2023-0 5-08 15:48: 43 Yes 10mg Take 1 tablet by mouth in the morning and 1 tablet in the evening. [facility] rivaroxaban 15 mg tablet 2023-0 5-08 15:48: 43 Yes 15mg Take 1 tablet by mouth in the morning. [facility] ASPIRIN ORAL 2023-0 5-08 15:48: 43 Yes 81mg Take 81 mg by mouth in the morning. tablet [facility] busPIRone 10 mg tablet 3-0 5-08 15:48: 43 Yes 10mg Take 1 tablet by mouth in the morning and 1 tablet in the evening. [facility] rivaroxaban 15 mg tablet 3-0 5-08 15:48: 43 Yes 15mg Take 1 tablet by mouth in the morning. [facility] ASPIRIN ORAL 2023-0 5-08 15:48: 43 Yes 81mg Take 81 mg by mouth in the morning. tablet [facility] busPIRone 10 mg tablet 3-0 5-08 15:48: 43 Yes 10mg Take 1 tablet by mouth in the morning and 1 tablet in the evening. [facility] rivaroxaban 15 mg tablet 3-0 5-08 15:48: 43 Yes 15mg Take 1 tablet by mouth in the morning. [facility] ASPIRIN ORAL 2023-0 5-08 15:48: 43 Yes 81mg Take 81 mg by mouth in the morning. tablet [facility] busPIRone 10 mg tablet 2023-0 5-08 15:48: 43 Yes 10mg Take 1 tablet by mouth in the morning and 1 tablet in the evening. [facility] rivaroxaban 15 mg tablet 2023-0 5-08 15:48: 43 Yes 15mg Take 1 tablet by mouth in the morning. [facility] ASPIRIN ORAL 2023-0 5-08 15:48: 43 Yes 81mg Take 81 mg by mouth in the morning. tablet [facility] busPIRone 10 mg tablet 01-24 15:48: 43 Yes 10mg Take 1 tablet by mouth in the morning and 1 tablet in the evening. [facility] rivaroxaban 15 mg tablet 01-24 15:48: 43 Yes 15mg Take 1 tablet by mouth in the morning. [facility] ASPIRIN ORAL 01-24 15:48: 43 Yes 81mg Take 81 mg by mouth in the morning. tablet [facility] busPIRone 10 mg tablet 01-24 15:48: 43 Yes 10mg Take 1 tablet by mouth in the morning and 1 tablet in the evening. [facility] rivaroxaban 15 mg tablet 01-24 15:48: 43 Yes 15mg Take 1 tablet by mouth in the morning. [facility] ASPIRIN ORAL 01-24 15:48: 43 Yes 81mg Take 81 mg by mouth in the morning. tablet [facility] levalbutero l (XOPENEX) nebulizer solution 1.25 mg 01-23 00:15: 00 01-22 23:35 :00 No 1.25mg 1.25 mg, Inhalation , ONCE, 1 dose, On 01/22/23 at 1915, Routine [facility] ipratropium (ATROVENT) 0.02 % nebulizer solution 0.5 mg 01-22 23:30: 00 01-22 23:36 :00 No .5mg 0.5 mg, Inhalation , ONCE, 1 dose, On 01/22/23 at 1830, MICHAEL [facility] diltiazem (CARDIZEM) tablet 30 mg 01-21 23:00: 00 Yes 30mg 30 mg, Oral, Q6H, First dose on Tue01/21/23 at 1800, Until Discontinu ed, Routine [facility] methylpredn isolone sod succ (SOLU-MEDRO L) injection 125 mg 01-21 23:00: 00 Yes 125mg 125 mg, Intravenou s, Q6H, First dose on Tue01/21/23 at 1800, Until Discontinu ed, Routine [facility] ipratropium -albuteroL (DUONEB) 0.5 mg-3 mg(2.5 mg base)/3 mL nebulizer solution 3 mL 01-21 20:45: 00 01-21 19:54 :00 No 3mL 3 mL, Inhalation , ONCE, 1 dose, On Tue01/21/23 at 1545, Routine [facility] diltiazem (CARDIZEM IV) injection 15 mg 01-21 19:45: 00 01-21 20:06 :00 No 15mg 15 mg, IV Push, ONCE, 1 dose, On Tue01/21/23 at 1445, STAT
Fa culty member approving Restricted medication : LOUIS HONG [facility] NaCl 0.9% (NS) bolus infusion 1,000 mL 01-21 19:45: 00 01-21 22:17 :00 No 1000mL at 999 mL/hr, 1,000 mL, IV Infusion, ONCE, 1 dose, On Tue01/21/23 at 1445, STAT [facility] predniSONE 20 mg tablet 01-20 00:00: 00 01-25 04:59 :00 No [id number] 40mg Take 2 tablets by mouth in the morning for 4 days. [facility] predniSONE 20 mg tablet 01-20 00:00: 00 01-25 04:59 :00 No [id number] 40mg Take 2 tablets by mouth in the morning for 4 days. [facility] predniSONE 20 mg tablet 01-20 00:00: 00 01-25 04:59 :00 No [id number] 40mg Take 2 tablets by mouth in the morning for 4 days. [facility] predniSONE 20 mg tablet 01-20 00:00: 00 01-25 04:59 :00 No [id number] 40mg Take 2 tablets by mouth in the morning for 4 days. [facility] predniSONE 20 mg tablet 01-20 00:00: 00 01-25 04:59 :00 No [id number] 40mg Take 2 tablets by mouth in the morning for 4 days. [facility] predniSONE 20 mg tablet 01-20 00:00: 00 01-25 04:59 :00 No [id number] 40mg Take 2 tablets by mouth in the morning for 4 days. [facility] predniSONE 20 mg tablet 01-20 00:00: 00 01-25 04:59 :00 No [id number] 40mg Take 2 tablets by mouth in the morning for 4 days. [facility] enoxaparin (LOVENOX) injection 40 mg 01-19 22:00: 00 Yes 40mg 40 mg, Subcutaneo us, DAILY, First dose on Tue01/19/23 at 1700, Until Discontinu ed, Routine [facility] levalbutero l (XOPENEX) nebulizer solution 1.25 mg 01-19 21:00: 00 Yes 1.25mg 1.25 mg, Inhalation , QID, First dose (after last modificati on) on Tue01/19/23 at 1600, Until Discontinu ed, Routine [facility] ipratropium (ATROVENT) 0.02 % nebulizer solution 0.5 mg 01-19 21:00: 00 Yes .5mg 0.5 mg, Inhalation , QID, First dose (after last modificati on) on Tue01/19/23 at 1600, Until Discontinu ed, Routine [facility] busPIRone 10 mg tablet 01-19 19:49: 16 Yes 10mg Take 1 tablet by mouth in the morning and 1 tablet in the evening. [facility] rivaroxaban 15 mg tablet 01-19 19:49: 16 Yes 15mg Take 1 tablet by mouth in the morning. [facility] ASPIRIN ORAL 01-19 19:49: 16 Yes 81mg Take 81 mg by mouth in the morning. tablet [facility] busPIRone 10 mg tablet 2022-0 - 19:49: 16 Yes 10mg Take 1 tablet by mouth in the morning and 1 tablet in the evening. [facility] rivaroxaban 15 mg tablet 0 01-19 19:49: 16 Yes 15mg Take 1 tablet by mouth in the morning. [facility] ASPIRIN ORAL 2022-0 01-19 19:49: 16 Yes 81mg Take 81 mg by mouth in the morning. tablet [facility] busPIRone 10 mg tablet 0 01-19 19:49: 16 Yes 10mg Take 1 tablet by mouth in the morning and 1 tablet in the evening. [facility] rivaroxaban 15 mg tablet 0 01-19 19:49: 16 Yes 15mg Take 1 tablet by mouth in the morning. [facility] ASPIRIN ORAL 2022-0 01-19 19:49: 16 Yes 81mg Take 81 mg by mouth in the morning. tablet [facility] busPIRone 10 mg tablet 0 01-19 19:49: 16 Yes 10mg Take 1 tablet by mouth in the morning and 1 tablet in the evening. [facility] rivaroxaban 15 mg tablet 0 01-19 19:49: 16 Yes 15mg Take 1 tablet by mouth in the morning. [facility] ASPIRIN ORAL 2022-0 01-19 19:49: 16 Yes 81mg Take 81 mg by mouth in the morning. tablet [facility] busPIRone 10 mg tablet 2022-0 01-19 19:49: 16 Yes 10mg Take 1 tablet by mouth in the morning and 1 tablet in the evening. [facility] rivaroxaban 15 mg tablet 2022-0 01-19 19:49: 16 Yes 15mg Take 1 tablet by mouth in the morning. [facility] ASPIRIN ORAL 2022-0 - 19:49: 16 Yes 81mg Take 81 mg by mouth in the morning. tablet [facility] busPIRone 10 mg tablet 2022-0 01-19 19:49: 16 Yes 10mg Take 1 tablet by mouth in the morning and 1 tablet in the evening. [facility] rivaroxaban 15 mg tablet 01-19 19:49: 16 Yes 15mg Take 1 tablet by mouth in the morning. [facility] ASPIRIN ORAL 01-19 19:49: 16 Yes 81mg Take 81 mg by mouth in the morning. tablet [facility] benazepriL 10 mg tablet 01-19 17:28: 05 01-19 00:00 :00 No 10mg Take 1 tablet by mouth in the morning. [facility] potassium chloride (KCL-20 ORAL) 01-19 17:28: 01-19 00:00 :00 No 1{tbl} Take 1 tablet by mouth in the morning and 1 tablet in the evening. [facility] aspirin chewable tablet 81 mg 01-19 14:00: 00 Yes 81mg 81 mg, Oral, DAILY, First dose on Tue01/19/23 at 0900, Until Discontinu ed [facility] predniSONE (DELTASONE) tablet 40 mg 01-19 14:00: 00 01-24 13:59 :00 No 40mg 40 mg, Oral, DAILY, 5 doses, First dose on Tue01/19/23 at 0900, Last dose on Tue01/23/23 at 0900, Routine [facility] busPIRone (BUSPAR) tablet 10 mg 01-19 13:00: 00 Yes 10mg 10 mg, Oral, BID, First dose on Tue01/19/23 at 0800, Until Discontinu ed, Routine [facility] ipratropium (ATROVENT) 0.02 % nebulizer solution 0.5 mg 01-19 13:00: 00 01-19 19:13 :37 No .5mg 0.5 mg, Inhalation , TID, First dose (after last modificati on) on Tue01/19/23 at 0800, Until Discontinu ed, Routine [facility] levalbutero l (XOPENEX) nebulizer solution 1.25 mg 01-19 13:00: 00 01-19 19:13 :37 No 1.25mg 1.25 mg, Inhalation , TID, First dose on Tue01/19/23 at 0800, Until Discontinu ed, Routine [facility] sodium polystyrene sulfonate (KAYEXALATE ) 15 gram/60 mL suspension 15 g 01-19 13:00: 00 01-19 13:22 :00 No 15g 15 g, Oral, ONCE, 1 dose, On Tue01/19/23 at 0800, Routine [facility] ipratropium (ATROVENT) 0.02 % nebulizer solution 0.5 mg 01-19 09:00: 00 01-19 12:09 :19 No .5mg 0.5 mg, Inhalation , Q4H, First dose on Tue01/19/23 at 0400, Until Discontinu ed, Routine [facility] levoFLOXaci n (LEVAQUIN) tablet 500 mg 01-19 08:15: 00 01-24 08:14 :00 No 500mg 500 mg, Oral, Q24H ABX, 5 doses, First dose on Tue01/19/23 at 0315, Last dose on Tue01/23/23 at 0315, MICHAEL
Re ason for Anti-Infec tive: Empiric Therapy for Suspected Infection< br>Empiric Therapy Site: Respirator y
Durat ion of therapy: [address] [facility] [place] [place] [facility] guaiFENesin 100 mg/5 mL solution 200 mg 01-19 08:04: 52 Yes 200mg 200 mg, Oral, Q6HPRN, Starting on Tue01/19/23 at 0304, Until Discontinu ed, Routine, Cough [facility] ondansetron (ZOFRAN (PF)) injection 4 mg 01-19 08:03: 53 Yes 4mg 4 mg, Slow IV Push, Q6HPRN, Starting on Tue01/19/23 at 0303, Until Discontinu ed, Routine, Nausea and Vomiting (N/V) [facility] morpHINE (2 mg/mL) injection 2 mg 01-19 08:03: 43 01-20 08:02 :43 No 2mg 2 mg, Slow IV Push, Q4HPRN, Starting on Tue01/19/23 at 0303, Until Elizabeth 01/20/23 at 0302, Routine, Pain (scale 7-10) [facility] HYDROcodone -acetaminop hen (NORCO 5) 5-325 mg tablet 1 tablet 01-19 08:03: 39 01-21 08:02 :39 No 1{tbl} 1 tablet, Oral, Q6HPRN, Starting on Tue01/19/23 at 0303, Until Tue01/21/23 at 0302, Routine, Pain (scale 4-6) [facility] acetaminoph en (TYLENOL) tablet 650 mg 01-19 08:03: 35 Yes 650mg 650 mg, Oral, Q6HPRN, Starting on Tue01/19/23 at 030, Until Discontinu ed, Routine, Pain (scale 1-3) [facility] levalbutero l (XOPENEX) nebulizer solution 1.25 mg 01-19 07:30: 00 01-19 07:08 :00 No 1.25mg 1.25 mg, Inhalation , ONCE, 1 dose, On Tue01/19/23 at 0230, Routine [facility] dexamethaso ne sod phos PF injection 10 mg 01-19 06:58: 00 01-19 07:06 :00 No 10mg 10 mg, Oral, ONCE, 1 dose, On Tue01/19/23 at 0200, 1 mL [facility] ipratropium (ATROVENT) 0.02 % nebulizer solution 0.5 mg 01-19 06:45: 00 01-19 07:09 :00 No .5mg 0.5 mg, Inhalation , ONCE, 1 dose, On Tue01/19/23 at 0145, MICHAEL [facility] ipratropium 0.02 % nebulizer solution 01-19 00:00: 00 Yes [id number] .5mg Inhale 2.5 mL every 6 (six) hours as needed for Wheezing, Shortness of Breath, Bronchospa sm or Chest tightness. [facility] guaiFENesin 100 mg/5 mL solution 01-19 00:00: 00 Yes [id number] 200mg Take 10 mL by mouth every 6 (six) hours as needed for Cough. [facility] ipratropium 0.02 % nebulizer solution 01-19 00:00: 00 Yes [id number] .5mg Inhale 2.5 mL every 6 (six) hours as needed for Wheezing, Shortness of Breath, Bronchospa sm or Chest tightness. [facility] guaiFENesin 100 mg/5 mL solution 01-19 00:00: 00 Yes [id number] 200mg Take 10 mL by mouth every 6 (six) hours as needed for Cough. [facility] ipratropium 0.02 % nebulizer solution 01-19 00:00: 00 Yes [id number] .5mg Inhale 2.5 mL every 6 (six) hours as needed for Wheezing, Shortness of Breath, Bronchospa sm or Chest tightness. [facility] guaiFENesin 100 mg/5 mL solution 01-19 00:00: 00 Yes [id number] 200mg Take 10 mL by mouth every 6 (six) hours as needed for Cough. [facility] ipratropium 0.02 % nebulizer solution 01-19 00:00: 00 Yes [id number] .5mg Inhale 2.5 mL every 6 (six) hours as needed for Wheezing, Shortness of Breath, Bronchospa sm or Chest tightness. [facility] guaiFENesin 100 mg/5 mL solution 01-19 00:00: 00 Yes [id number] 200mg Take 10 mL by mouth every 6 (six) hours as needed for Cough. [facility] ipratropium 0.02 % nebulizer solution 01-19 00:00: 00 Yes [id number] .5mg Inhale 2.5 mL every 6 (six) hours as needed for Wheezing, Shortness of Breath, Bronchospa sm or Chest tightness. [facility] guaiFENesin 100 mg/5 mL solution 01-19 00:00: 00 Yes [id number] 200mg Take 10 mL by mouth every 6 (six) hours as needed for Cough. [facility] ipratropium 0.02 % nebulizer solution 01-19 00:00: 00 Yes [id number] .5mg Inhale 2.5 mL every 6 (six) hours as needed for Wheezing, Shortness of Breath, Bronchospa sm or Chest tightness. [facility] guaiFENesin 100 mg/5 mL solution 01-19 00:00: 00 Yes [id number] 200mg Take 10 mL by mouth every 6 (six) hours as needed for Cough. [facility] ipratropium 0.02 % nebulizer solution 01-19 00:00: 00 Yes [id number] .5mg Inhale 2.5 mL every 6 (six) hours as needed for Wheezing, Shortness of Breath, Bronchospa sm or Chest tightness. [facility] guaiFENesin 100 mg/5 mL solution 01-19 00:00: 00 Yes [id number] 200mg Take 10 mL by mouth every 6 (six) hours as needed for Cough. [facility] ipratropium 0.02 % nebulizer solution 01-19 00:00: 00 Yes [id number] .5mg Inhale 2.5 mL every 6 (six) hours as needed for Wheezing, Shortness of Breath, Bronchospa sm or Chest tightness. [facility] guaiFENesin 100 mg/5 mL solution 01-19 00:00: 00 Yes [id number] 200mg Take 10 mL by mouth every 6 (six) hours as needed for Cough. [facility] guaiFENesin 100 mg/5 mL solution 0 01-19 00:00: 00 Yes [id number] 200mg Take 10 mL by mouth every 6 (six) hours as needed for Cough. [facility] guaiFENesin 100 mg/5 mL solution 2023-0 5-03 00:00: 00 Yes [id number] 200mg Take 10 mL by mouth every 6 (six) hours as needed for Cough. [facility] guaiFENesin 100 mg/5 mL solution 2023-0 5-03 00:00: 00 Yes [id number] 200mg Take 10 mL by mouth every 6 (six) hours as needed for Cough. [facility] guaiFENesin 100 mg/5 mL solution 2023-0 5-03 00:00: 00 Yes [id number] 200mg Take 10 mL by mouth every 6 (six) hours as needed for Cough. [facility] guaiFENesin 100 mg/5 mL solution 3-0 5-03 00:00: 00 Yes [id number] 200mg Take 10 mL by mouth every 6 (six) hours as needed for Cough. [facility] guaiFENesin 100 mg/5 mL solution 3-0 5-03 00:00: 00 Yes [id number] 200mg Take 10 mL by mouth every 6 (six) hours as needed for Cough. [facility] guaiFENesin 100 mg/5 mL solution 3-0 5-03 00:00: 00 Yes [id number] 200mg Take 10 mL by mouth every 6 (six) hours as needed for Cough. [facility] guaiFENesin 100 mg/5 mL solution 3-0 5-03 00:00: 00 Yes [id number] 200mg Take 10 mL by mouth every 6 (six) hours as needed for Cough. [facility] guaiFENesin 100 mg/5 mL solution 3-0 5-03 00:00: 00 Yes [id number] 200mg Take 10 mL by mouth every 6 (six) hours as needed for Cough. [facility] guaiFENesin 100 mg/5 mL solution 3-0 5-03 00:00: 00 Yes [id number] 200mg Take 10 mL by mouth every 6 (six) hours as needed for Cough. [facility] guaiFENesin 100 mg/5 mL solution 2023-0 5-03 00:00: 00 Yes [id number] 200mg Take 10 mL by mouth every 6 (six) hours as needed for Cough. [facility] guaiFENesin 100 mg/5 mL solution 01-19 00:00: 00 Yes [id number] 200mg Take 10 mL by mouth every 6 (six) hours as needed for Cough. [facility] guaiFENesin 100 mg/5 mL solution 01-19 00:00: 00 Yes [id number] 200mg Take 10 mL by mouth every 6 (six) hours as needed for Cough. [facility] ipratropium 0.02 % nebulizer solution 01-19 00:00: 00 Yes [id number] .5mg Inhale 2.5 mL every 6 (six) hours as needed for Wheezing, Shortness of Breath, Bronchospa sm or Chest tightness. [facility] guaiFENesin 100 mg/5 mL solution 01-19 00:00: 00 Yes [id number] 200mg Take 10 mL by mouth every 6 (six) hours as needed for Cough. [facility] ipratropium 0.02 % nebulizer solution 01-19 00:00: 00 Yes [id number] .5mg Inhale 2.5 mL every 6 (six) hours as needed for Wheezing, Shortness of Breath, Bronchospa sm or Chest tightness. [facility] guaiFENesin 100 mg/5 mL solution 01-19 00:00: 00 Yes [id number] 200mg Take 10 mL by mouth every 6 (six) hours as needed for Cough. [facility] ipratropium 0.02 % nebulizer solution 01-19 00:00: 00 Yes [id number] .5mg Inhale 2.5 mL every 6 (six) hours as needed for Wheezing, Shortness of Breath, Bronchospa sm or Chest tightness. [facility] guaiFENesin 100 mg/5 mL solution 01-19 00:00: 00 Yes [id number] 200mg Take 10 mL by mouth every 6 (six) hours as needed for Cough. [facility] ipratropium 0.02 % nebulizer solution 01-19 00:00: 00 Yes [id number] .5mg Inhale 2.5 mL every 6 (six) hours as needed for Wheezing, Shortness of Breath, Bronchospa sm or Chest tightness. [facility] guaiFENesin 100 mg/5 mL solution 01-19 00:00: 00 Yes [id number] 200mg Take 10 mL by mouth every 6 (six) hours as needed for Cough. [facility] ipratropium 0.02 % nebulizer solution 01-19 00:00: 00 Yes [id number] .5mg Inhale 2.5 mL every 6 (six) hours as needed for Wheezing, Shortness of Breath, Bronchospa sm or Chest tightness. [facility] guaiFENesin 100 mg/5 mL solution 01-19 00:00: 00 Yes [id number] 200mg Take 10 mL by mouth every 6 (six) hours as needed for Cough. [facility] ipratropium 0.02 % nebulizer solution 01-19 00:00: 00 Yes [id number] .5mg Inhale 2.5 mL every 6 (six) hours as needed for Wheezing, Shortness of Breath, Bronchospa sm or Chest tightness. [facility] guaiFENesin 100 mg/5 mL solution 01-19 00:00: 00 Yes [id number] 200mg Take 10 mL by mouth every 6 (six) hours as needed for Cough. [facility] ipratropium 0.02 % nebulizer solution 01-19 00:00: 00 Yes [id number] .5mg Inhale 2.5 mL every 6 (six) hours as needed for Wheezing, Shortness of Breath, Bronchospa sm or Chest tightness. [facility] guaiFENesin 100 mg/5 mL solution 01-19 00:00: 00 Yes [id number] 200mg Take 10 mL by mouth every 6 (six) hours as needed for Cough. [facility] ipratropium 0.02 % nebulizer solution 01-19 00:00: 00 Yes [id number] .5mg Inhale 2.5 mL every 6 (six) hours as needed for Wheezing, Shortness of Breath, Bronchospa sm or Chest tightness. [facility] guaiFENesin 100 mg/5 mL solution 01-19 00:00: 00 Yes [id number] 200mg Take 10 mL by mouth every 6 (six) hours as needed for Cough. [facility] ipratropium 0.02 % nebulizer solution 01-19 00:00: 00 Yes [id number] .5mg Inhale 2.5 mL every 6 (six) hours as needed for Wheezing, Shortness of Breath, Bronchospa sm or Chest tightness. [facility] guaiFENesin 100 mg/5 mL solution 01-19 00:00: 00 Yes [id number] 200mg Take 10 mL by mouth every 6 (six) hours as needed for Cough. [facility] ipratropium 0.02 % nebulizer solution 01-19 00:00: 00 Yes [id number] .5mg Inhale 2.5 mL every 6 (six) hours as needed for Wheezing, Shortness of Breath, Bronchospa sm or Chest tightness. [facility] guaiFENesin 100 mg/5 mL solution 01-19 00:00: 00 Yes [id number] 200mg Take 10 mL by mouth every 6 (six) hours as needed for Cough. [facility] ipratropium 0.02 % nebulizer solution 01-19 00:00: 00 Yes [id number] .5mg Inhale 2.5 mL every 6 (six) hours as needed for Wheezing, Shortness of Breath, Bronchospa sm or Chest tightness. [facility] guaiFENesin 100 mg/5 mL solution 01-19 00:00: 00 Yes [id number] 200mg Take 10 mL by mouth every 6 (six) hours as needed for Cough. [facility] ipratropium 0.02 % nebulizer solution 01-19 00:00: 00 02-17 00:00 :00 No [id number] .5mg Inhale 2.5 mL every 6 (six) hours as needed for Wheezing, Shortness of Breath, Bronchospa sm or Chest tightness. [facility] levoFLOXaci n 500 mg tablet 01-19 00:00: 00 01-24 04:59 :00 No [id number] 500mg Take 1 tablet by mouth in the morning for 4 days. [facility] levoFLOXaci n 500 mg tablet 01-19 00:00: 00 01-24 04:59 :00 No [id number] 500mg Take 1 tablet by mouth in the morning for 4 days. [facility] levoFLOXaci n 500 mg tablet 01-19 00:00: 00 01-24 04:59 :00 No [id number] 500mg Take 1 tablet by mouth in the morning for 4 days. [facility] levoFLOXaci n 500 mg tablet 01-19 00:00: 00 01-24 04:59 :00 No [id number] 500mg Take 1 tablet by mouth in the morning for 4 days. [facility] levoFLOXaci n 500 mg tablet 01-19 00:00: 00 01-24 04:59 :00 No [id number] 500mg Take 1 tablet by mouth in the morning for 4 days. [facility] levoFLOXaci n 500 mg tablet 01-19 00:00: 00 01-24 04:59 :00 No [id number] 500mg Take 1 tablet by mouth in the morning for 4 days. [facility] levalbutero l (XOPENEX) nebulizer solution 1.25 mg 01-17 13:00: 00 01-17 11:56 :39 No 1.25mg 1.25 mg, Inhalation , TID, First dose on Tue01/17/23 at 0800, Until Discontinu ed, Routine [facility] methylpredn isolone sod succ (SOLU-MEDRO L) injection 125 mg 01-17 12:00: 00 01-17 11:11 :00 No 125mg 125 mg, Intravenou s, ONCE, 1 dose, On Tue01/17/23 at 0700, 2 mL [facility] ipratropium (ATROVENT) 0.02 % nebulizer solution 0.5 mg 01-17 11:45: 00 01-17 11:42 :00 No .5mg 0.5 mg, Inhalation , ONCE, 1 dose, On Tue01/17/23 at 0645, MICHAEL [facility] albuterol 90 mcg/actuati on inhaler 01-17 00:00: 00 Yes [id number] 2{puff} Inhale 2 Puffs every 4 (four) hours as needed for Wheezing or Shortness of Breath. [facility] albuterol 2.5 mg /3 mL (0.083 %) nebulizer solution 01-17 00:00: 00 Yes [id number] 2.5mg Inhale 3 mL every 4 (four) hours. May also nebulize one extra every 6 hours. [facility] predniSONE 50 mg tablet 01-17 00:00: 00 Yes [id number] 50mg Take 1 tablet by mouth in the morning. [facility] benzonatate 200 mg capsule 01-17 00:00: 00 Yes [id number] 200mg Take 1 capsule by mouth 3 (three) times daily as needed for Cough. [facility] ipratropium 0.02 % nebulizer solution 01-17 00:00: 00 Yes [id number] .5mg Inhale 2.5 mL every 6 (six) hours as needed for Wheezing, Shortness of Breath, Bronchospa sm or Chest tightness. [facility] albuterol 90 mcg/actuati on inhaler 01-17 00:00: 00 Yes [id number] 2{puff} Inhale 2 Puffs every 4 (four) hours as needed for Wheezing or Shortness of Breath. [facility] albuterol 2.5 mg /3 mL (0.083 %) nebulizer solution 01-17 00:00: 00 Yes [id number] 2.5mg Inhale 3 mL every 4 (four) hours. May also nebulize one extra every 6 hours. [facility] benzon[facility] mg capsule 01-17 00:00: 00 Yes [id number] 200mg Take 1 capsule by mouth 3 (three) times daily as needed for Cough. [facility] albuterol 90 mcg/actuati on inhaler 01-17 00:00: 00 Yes [id number] 2{puff} Inhale 2 Puffs every 4 (four) hours as needed for Wheezing or Shortness of Breath. [facility] albuterol 2.5 mg /3 mL (0.083 %) nebulizer solution 01-17 00:00: 00 Yes [id number] 2.5mg Inhale 3 mL every 4 (four) hours. May also nebulize one extra every 6 hours. [facility] benzonatate 200 mg capsule 01-17 00:00: 00 Yes [id number] 200mg Take 1 capsule by mouth 3 (three) times daily as needed for Cough. [facility] albuterol 90 mcg/actuati on inhaler 01-17 00:00: 00 Yes [id number] 2{puff} Inhale 2 Puffs every 4 (four) hours as needed for Wheezing or Shortness of Breath. [facility] albuterol 2.5 mg /3 mL (0.083 %) nebulizer solution 01-17 00:00: 00 Yes [id number] 2.5mg Inhale 3 mL every 4 (four) hours. May also nebulize one extra every 6 hours. [facility] benzonatate 200 mg capsule 01-17 00:00: 00 Yes [id number] 200mg Take 1 capsule by mouth 3 (three) times daily as needed for Cough. [facility] albuterol 90 mcg/actuati on inhaler 01-17 00:00: 00 Yes [id number] 2{puff} Inhale 2 Puffs every 4 (four) hours as needed for Wheezing or Shortness of Breath. [facility] albuterol 2.5 mg /3 mL (0.083 %) nebulizer solution 01-17 00:00: 00 Yes [id number] 2.5mg Inhale 3 mL every 4 (four) hours. May also nebulize one extra every 6 hours. [facility] benzonatate 200 mg capsule 01-17 00:00: 00 Yes [id number] 200mg Take 1 capsule by mouth 3 (three) times daily as needed for Cough. [facility] albuterol 90 mcg/actuati on inhaler 01-17 00:00: 00 Yes [id number] 2{puff} Inhale 2 Puffs every 4 (four) hours as needed for Wheezing or Shortness of Breath. [facility] albuterol 2.5 mg /3 mL (0.083 %) nebulizer solution 01-17 00:00: 00 Yes [id number] 2.5mg Inhale 3 mL every 4 (four) hours. May also nebulize one extra every 6 hours. [facility] benzonatate 200 mg capsule 01-17 00:00: 00 Yes [id number] 200mg Take 1 capsule by mouth 3 (three) times daily as needed for Cough. [facility] albuterol 90 mcg/actuati on inhaler 01-17 00:00: 00 Yes [id number] 2{puff} Inhale 2 Puffs every 4 (four) hours as needed for Wheezing or Shortness of Breath. [facility] albuterol 2.5 mg /3 mL (0.083 %) nebulizer solution 01-17 00:00: 00 Yes [id number] 2.5mg Inhale 3 mL every 4 (four) hours. May also nebulize one extra every 6 hours. [facility] benzonatate 200 mg capsule 01-17 00:00: 00 Yes [id number] 200mg Take 1 capsule by mouth 3 (three) times daily as needed for Cough. [facility] albuterol 90 mcg/actuati on inhaler 01-17 00:00: 00 Yes [id number] 2{puff} Inhale 2 Puffs every 4 (four) hours as needed for Wheezing or Shortness of Breath. [facility] albuterol 2.5 mg /3 mL (0.083 %) nebulizer solution 01-17 00:00: 00 Yes [id number] 2.5mg Inhale 3 mL every 4 (four) hours. May also nebulize one extra every 6 hours. [facility] benzonatate 200 mg capsule 01-17 00:00: 00 Yes [id number] 200mg Take 1 capsule by mouth 3 (three) times daily as needed for Cough. [facility] al[facility] 90 mcg/actuati on inhaler 01-17 00:00: 00 Yes [id number] 2{puff} Inhale 2 Puffs every 4 (four) hours as needed for Wheezing or Shortness of Breath. [facility] albuterol 2.5 mg /3 mL (0.083 %) nebulizer solution 01-17 00:00: 00 Yes [id number] 2.5mg Inhale 3 mL every 4 (four) hours. May also nebulize one extra every 6 hours. [facility] benzonatate 200 mg capsule 01-17 00:00: 00 Yes [id number] 200mg Take 1 capsule by mouth 3 (three) times daily as needed for Cough. [facility] albuterol 90 mcg/actuati on inhaler 01-17 00:00: 00 Yes [id number] 2{puff} Inhale 2 Puffs every 4 (four) hours as needed for Wheezing or Shortness of Breath. [facility] albuterol 2.5 mg /3 mL (0.083 %) nebulizer solution 01-17 00:00: 00 Yes [id number] 2.5mg Inhale 3 mL every 4 (four) hours. May also nebulize one extra every 6 hours. [facility] benzonatate 200 mg capsule 01-17 00:00: 00 Yes [id number] 200mg Take 1 capsule by mouth 3 (three) times daily as needed for Cough. [facility] albuterol 90 mcg/actuati on inhaler 01-17 00:00: 00 Yes [id number] 2{puff} Inhale 2 Puffs every 4 (four) hours as needed for Wheezing or Shortness of Breath. [facility] albuterol 2.5 mg /3 mL (0.083 %) nebulizer solution 01-17 00:00: 00 Yes [id number] 2.5mg Inhale 3 mL every 4 (four) hours. May also nebulize one extra every 6 hours. [facility] benzonatate 200 mg capsule 01-17 00:00: 00 Yes [id number] 200mg Take 1 capsule by mouth 3 (three) times daily as needed for Cough. [facility] albuterol 90 mcg/actuati on inhaler 01-17 00:00: 00 Yes [id number] 2{puff} Inhale 2 Puffs every 4 (four) hours as needed for Wheezing or Shortness of Breath. [facility] albuterol 2.5 mg /3 mL (0.083 %) nebulizer solution 01-17 00:00: 00 Yes [id number] 2.5mg Inhale 3 mL every 4 (four) hours. May also nebulize one extra every 6 hours. [facility] benzonatate 200 mg capsule 01-17 00:00: 00 Yes [id number] 200mg Take 1 capsule by mouth 3 (three) times daily as needed for Cough. [facility] albuterol 90 mcg/actuati on inhaler 01-17 00:00: 00 Yes [id number] 2{puff} Inhale 2 Puffs every 4 (four) hours as needed for Wheezing or Shortness of Breath. [facility] albuterol 2.5 mg /3 mL (0.083 %) nebulizer solution 01-17 00:00: 00 Yes [id number] 2.5mg Inhale 3 mL every 4 (four) hours. May also nebulize one extra every 6 hours. [facility] benzonatate 200 mg capsule 01-17 00:00: 00 Yes [id number] 200mg Take 1 capsule by mouth 3 (three) times daily as needed for Cough. [facility] albuterol 90 mcg/actuati on inhaler 01-17 00:00: 00 Yes [id number] 2{puff} Inhale 2 Puffs every 4 (four) hours as needed for Wheezing or Shortness of Breath. [facility] albuterol 2.5 mg /3 mL (0.083 %) nebulizer solution 01-17 00:00: 00 Yes [id number] 2.5mg Inhale 3 mL every 4 (four) hours. May also nebulize one extra every 6 hours. [facility] benzonatate 200 mg capsule 01-17 00:00: 00 Yes [id number] 200mg Take 1 capsule by mouth 3 (three) times daily as needed for Cough. [facility] albuterol 90 mcg/actuati on inhaler 01-17 00:00: 00 Yes [id number] 2{puff} Inhale 2 Puffs every 4 (four) hours as needed for Wheezing or Shortness of Breath. [facility] albuterol 2.5 mg /3 mL (0.083 %) nebulizer solution 01-17 00:00: 00 Yes [id number] 2.5mg Inhale 3 mL every 4 (four) hours. May also nebulize one extra every 6 hours. [facility] benzonatate 200 mg capsule 01-17 00:00: 00 Yes [id number] 200mg Take 1 capsule by mouth 3 (three) times daily as needed for Cough. [facility] al[facility] 90 mcg/actuati on inhaler 01-17 00:00: 00 Yes [id number] 2{puff} Inhale 2 Puffs every 4 (four) hours as needed for Wheezing or Shortness of Breath. [facility] al[facility]erol 2.5 mg /3 mL (0.083 %) nebulizer solution 01-17 00:00: 00 Yes [id number] 2.5mg Inhale 3 mL every 4 (four) hours. May also nebulize one extra every 6 hours. [facility] benzonatate 200 mg capsule 01-17 00:00: 00 Yes [id number] 200mg Take 1 capsule by mouth 3 (three) times daily as needed for Cough. [facility] albuterol 90 mcg/actuati on inhaler 01-17 00:00: 00 Yes [id number] 2{puff} Inhale 2 Puffs every 4 (four) hours as needed for Wheezing or Shortness of Breath. [facility] albuterol 2.5 mg /3 mL (0.083 %) nebulizer solution 01-17 00:00: 00 Yes [id number] 2.5mg Inhale 3 mL every 4 (four) hours. May also nebulize one extra every 6 hours. [facility] benzonatate 200 mg capsule 01-17 00:00: 00 Yes [id number] 200mg Take 1 capsule by mouth 3 (three) times daily as needed for Cough. [facility] albuterol 2.5 mg /3 mL (0.083 %) nebulizer solution 01-17 00:00: 00 Yes [id number] 2.5mg Inhale 3 mL every 4 (four) hours. May also nebulize one extra every 6 hours. [facility] benzonatate 200 mg capsule 01-17 00:00: 00 Yes [id number] 200mg Take 1 capsule by mouth 3 (three) times daily as needed for Cough. [facility] albuterol 2.5 mg /3 mL (0.083 %) nebulizer solution 01-17 00:00: 00 Yes [id number] 2.5mg Inhale 3 mL every 4 (four) hours. May also nebulize one extra every 6 hours. [facility] benzonatate 200 mg capsule 01-17 00:00: 00 Yes [id number] 200mg Take 1 capsule by mouth 3 (three) times daily as needed for Cough. [facility] albuterol 2.5 mg /3 mL (0.083 %) nebulizer solution 01-17 00:00: 00 Yes [id number] 2.5mg Inhale 3 mL every 4 (four) hours. May also nebulize one extra every 6 hours. [facility] benzonatate 200 mg capsule 01-17 00:00: 00 Yes [id number] 200mg Take 1 capsule by mouth 3 (three) times daily as needed for Cough. [facility] albuterol 2.5 mg /3 mL (0.083 %) nebulizer solution 01-17 00:00: 00 Yes [id number] 2.5mg Inhale 3 mL every 4 (four) hours. May also nebulize one extra every 6 hours. [facility] albuterol 2.5 mg /3 mL (0.083 %) nebulizer solution 01-17 00:00: 00 Yes [id number] 2.5mg Inhale 3 mL every 4 (four) hours. May also nebulize one extra every 6 hours. [facility] albuterol 2.5 mg /3 mL (0.083 %) nebulizer solution 01-17 00:00: 00 Yes [id number] 2.5mg Inhale 3 mL every 4 (four) hours. May also nebulize one extra every 6 hours. [facility] albuterol 2.5 mg /3 mL (0.083 %) nebulizer solution 01-17 00:00: 00 Yes [id number] 2.5mg Inhale 3 mL every 4 (four) hours. May also nebulize one extra every 6 hours. [facility] albuterol 2.5 mg /3 mL (0.083 %) nebulizer solution 01-17 00:00: 00 Yes [id number] 2.5mg Inhale 3 mL every 4 (four) hours. May also nebulize one extra every 6 hours. [facility] albuterol 2.5 mg /3 mL (0.083 %) nebulizer solution 01-17 00:00: 00 Yes [id number] 2.5mg Inhale 3 mL every 4 (four) hours. May also nebulize one extra every 6 hours. [facility] albuterol 2.5 mg /3 mL (0.083 %) nebulizer solution 01-17 00:00: 00 03-03 00:00 :00 No [id number] 2.5mg Inhale 3 mL every 4 (four) hours. May also nebulize one extra every 6 hours. [facility] benzonatate 200 mg capsule 01-17 00:00: 00 02-17 00:00 :00 No [id number] 200mg Take 1 capsule by mouth 3 (three) times daily as needed for Cough. [facility] albuterol 90 mcg/actuati on inhaler 01-17 00:00: 00 02-04 00:00 :00 No [id number] 2{puff} Inhale 2 Puffs every 4 (four) hours as needed for Wheezing or Shortness of Breath. [facility] predniSONE 50 mg tablet 01-17 00:00: 00 01-19 00:00 :00 No [id number] 50mg Take 1 tablet by mouth in the morning. [facility] ipratropium 0.02 % nebulizer solution 01-17 00:00: 00 01-19 00:00 :00 No [id number] .5mg Inhale 2.5 mL every 6 (six) hours as needed for Wheezing, Shortness of Breath, Bronchospa sm or Chest tightness. [facility] potassium chloride (KCL-20 ORAL) 01-07 14:37: 58 Yes 1{tbl} Take 1 tablet by mouth in the morning and 1 tablet in the evening. [facility] potassium chloride (KCL-20 ORAL) 01-07 14:37: 58 Yes 1{tbl} Take 1 tablet by mouth in the morning and 1 tablet in the evening. [facility] potassium chloride (KCL-20 ORAL) 01-07 14:37: 58 Yes 1{tbl} Take 1 tablet by mouth in the morning and 1 tablet in the evening. [facility] potassium chloride (KCL-20 ORAL) 01-07 14:37: 58 Yes 1{tbl} Take 1 tablet by mouth in the morning and 1 tablet in the evening. [facility] busPIRone 10 mg tablet 3-0 01-07 14:36: 57 Yes 10mg Take 1 tablet by mouth in the morning and 1 tablet in the evening. [facility] rivaroxaban 15 mg tablet 2022-0 01-07 14:36: 57 Yes 15mg Take 1 tablet by mouth in the morning. [facility] ASPIRIN ORAL 3-0 01-07 14:36: 57 Yes 81mg Take 81 mg by mouth in the morning. tablet [facility] benazepriL 10 mg tablet 2022-0 01-07 14:36: 57 Yes 10mg Take 1 tablet by mouth in the morning. [facility] busPIRone 10 mg tablet 2022-0 01-07 14:36: 57 Yes 10mg Take 1 tablet by mouth in the morning and 1 tablet in the evening. [facility] rivaroxaban 15 mg tablet 2022-0 01-07 14:36: 57 Yes 15mg Take 1 tablet by mouth in the morning. [facility] ASPIRIN ORAL 2022-0 01-07 14:36: 57 Yes 81mg Take 81 mg by mouth in the morning. tablet [facility] benazepriL 10 mg tablet 2022-0 01-07 14:36: 57 Yes 10mg Take 1 tablet by mouth in the morning. [facility] busPIRone 10 mg tablet 2022-0 01-07 14:36: 57 Yes 10mg Take 1 tablet by mouth in the morning and 1 tablet in the evening. [facility] rivaroxaban 15 mg tablet 2022-0 01-07 14:36: 57 Yes 15mg Take 1 tablet by mouth in the morning. [facility] ASPIRIN ORAL 3-0 01-07 14:36: 57 Yes 81mg Take 81 mg by mouth in the morning. tablet [facility] benazepriL 10 mg tablet 3-0 01-07 14:36: 57 Yes 10mg Take 1 tablet by mouth in the morning. [facility] busPIRone 10 mg tablet 3-0 4-21 14:36: 57 Yes 10mg Take 1 tablet by mouth in the morning and 1 tablet in the evening. [facility] rivaroxaban 15 mg tablet 2022-0 01-07 14:36: 57 Yes 15mg Take 1 tablet by mouth in the morning. [facility] ASPIRIN ORAL 3-0 01-07 14:36: 57 Yes 81mg Take 81 mg by mouth in the morning. tablet [facility] benazepriL 10 mg tablet 2022-0 01-07 14:36: 57 Yes 10mg Take 1 tablet by mouth in the morning. [facility] donepeziL 5 mg tablet 2022-0 01-07 00:00: 00 Yes 5mg Take 1 tablet by mouth in the morning. [facility] memantine 5 mg tablet 2022-0 01-07 00:00: 00 Yes 5mg Take 1 tablet by mouth in the morning. [facility] donepeziL 5 mg tablet 3-0 21 00:00: 00 Yes 5mg Take 1 tablet by mouth in the morning. [facility] memantine 5 mg tablet 3-0 21 00:00: 00 Yes 5mg Take 1 tablet by mouth in the morning. [facility] donepeziL 5 mg tablet 3-0 21 00:00: 00 Yes 5mg Take 1 tablet by mouth in the morning. [facility] memantine 5 mg tablet 3-0 21 00:00: 00 Yes 5mg Take 1 tablet by mouth in the morning. [facility] donepeziL 5 mg tablet 3-0 21 00:00: 00 Yes 5mg Take 1 tablet by mouth in the morning. [facility] memantine 5 mg tablet 3-0 21 00:00: 00 Yes 5mg Take 1 tablet by mouth in the morning. [facility] donepeziL 5 mg tablet 3-0 21 00:00: 00 Yes 5mg Take 1 tablet by mouth in the morning. [facility] memantine 5 mg tablet 3-0 4-21 00:00: 00 Yes 5mg Take 1 tablet by mouth in the morning. [facility] donepeziL 5 mg tablet 2023-0 4-21 00:00: 00 Yes 5mg Take 1 tablet by mouth in the morning. [facility] memantine 5 mg tablet 2023-0 4-21 00:00: 00 Yes 5mg Take 1 tablet by mouth in the morning. [facility] donepeziL 5 mg tablet 2023-0 4-21 00:00: 00 Yes 5mg Take 1 tablet by mouth in the morning. [facility] memantine 5 mg tablet 2023-0 4-21 00:00: 00 Yes 5mg Take 1 tablet by mouth in the morning. [facility] donepeziL 5 mg tablet 3-0 4-21 00:00: 00 Yes 5mg Take 1 tablet by mouth in the morning. [facility] memantine 5 mg tablet 2023-0 4-21 00:00: 00 Yes 5mg Take 1 tablet by mouth in the morning. [facility] donepeziL 5 mg tablet 2023-0 4-21 00:00: 00 Yes 5mg Take 1 tablet by mouth in the morning. [facility] memantine 5 mg tablet 2023-0 4-21 00:00: 00 Yes 5mg Take 1 tablet by mouth in the morning. [facility] donepeziL 5 mg tablet 2023-0 4-21 00:00: 00 Yes 5mg Take 1 tablet by mouth in the morning. [facility] memantine 5 mg tablet 2023-0 4-21 00:00: 00 Yes 5mg Take 1 tablet by mouth in the morning. [facility] donepeziL 5 mg tablet 2023-0 4-21 00:00: 00 Yes 5mg Take 1 tablet by mouth in the morning. [facility] memantine 5 mg tablet 2023-0 4-21 00:00: 00 Yes 5mg Take 1 tablet by mouth in the morning. [facility] donepeziL 5 mg tablet 2023-0 4-21 00:00: 00 Yes 5mg Take 1 tablet by mouth in the morning. [facility] memantine 5 mg tablet 2023-0 4-21 00:00: 00 Yes 5mg Take 1 tablet by mouth in the morning. [facility] donepeziL 5 mg tablet 2023-0 4-21 00:00: 00 Yes 5mg Take 1 tablet by mouth in the morning. [facility] memantine 5 mg tablet 2023-0 4-21 00:00: 00 Yes 5mg Take 1 tablet by mouth in the morning. [facility] donepeziL 5 mg tablet 2023-0 4-21 00:00: 00 Yes 5mg Take 1 tablet by mouth in the morning. [facility] memantine 5 mg tablet 3-0 4-21 00:00: 00 Yes 5mg Take 1 tablet by mouth in the morning. [facility] donepeziL 5 mg tablet 3-0 4-21 00:00: 00 Yes 5mg Take 1 tablet by mouth in the morning. [facility] memantine 5 mg tablet 2023-0 4-21 00:00: 00 Yes 5mg Take 1 tablet by mouth in the morning. [facility] donepeziL 5 mg tablet 2023-0 4-21 00:00: 00 Yes 5mg Take 1 tablet by mouth in the morning. [facility] memantine 5 mg tablet 3-0 4-21 00:00: 00 Yes 5mg Take 1 tablet by mouth in the morning. [facility] donepeziL 5 mg tablet 3-0 4-21 00:00: 00 Yes 5mg Take 1 tablet by mouth in the morning. [facility] memantine 5 mg tablet 2023-0 4-21 00:00: 00 Yes 5mg Take 1 tablet by mouth in the morning. [facility] donepeziL 5 mg tablet 2023-0 4-21 00:00: 00 Yes 5mg Take 1 tablet by mouth in the morning. [facility] memantine 5 mg tablet 2023-0 4-21 00:00: 00 Yes 5mg Take 1 tablet by mouth in the morning. [facility] donepeziL 5 mg tablet 2023-0 4-21 00:00: 00 Yes 5mg Take 1 tablet by mouth in the morning. [facility] memantine 5 mg tablet 2023-0 4-21 00:00: 00 Yes 5mg Take 1 tablet by mouth in the morning. [facility] donepeziL 5 mg tablet 2023-0 4-21 00:00: 00 Yes 5mg Take 1 tablet by mouth in the morning. [facility] memantine 5 mg tablet 2023-0 4-21 00:00: 00 Yes 5mg Take 1 tablet by mouth in the morning. [facility] donepeziL 5 mg tablet 2023-0 4-21 00:00: 00 Yes 5mg Take 1 tablet by mouth in the morning. [facility] memantine 5 mg tablet 3-0 4-21 00:00: 00 Yes 5mg Take 1 tablet by mouth in the morning. [facility] donepeziL 5 mg tablet 2023-0 4-21 00:00: 00 Yes 5mg Take 1 tablet by mouth in the morning. [facility] memantine 5 mg tablet 2023-0 4-21 00:00: 00 Yes 5mg Take 1 tablet by mouth in the morning. [facility] donepeziL 5 mg tablet 2023-0 4-21 00:00: 00 Yes 5mg Take 1 tablet by mouth in the morning. [facility] memantine 5 mg tablet 3-0 4-21 00:00: 00 Yes 5mg Take 1 tablet by mouth in the morning. [facility] donepeziL 5 mg tablet 2023-0 4-21 00:00: 00 Yes 5mg Take 1 tablet by mouth in the morning. [facility] memantine 5 mg tablet 2023-0 4-21 00:00: 00 Yes 5mg Take 1 tablet by mouth in the morning. [facility] donepeziL 5 mg tablet 2023-0 4-21 00:00: 00 Yes 5mg Take 1 tablet by mouth in the morning. [facility] memantine 5 mg tablet 2023-0 4-21 00:00: 00 Yes 5mg Take 1 tablet by mouth in the morning. [facility] donepeziL 5 mg tablet 2023-0 4-21 00:00: 00 Yes 5mg Take 1 tablet by mouth in the morning. [facility] memantine 5 mg tablet 3-0 4-21 00:00: 00 Yes 5mg Take 1 tablet by mouth in the morning. [facility] donepeziL 5 mg tablet 3-0 4-21 00:00: 00 Yes 5mg Take 1 tablet by mouth in the morning. [facility] memantine 5 mg tablet 3-0 4-21 00:00: 00 Yes 5mg Take 1 tablet by mouth in the morning. [facility] donepeziL 5 mg tablet 3-0 4-21 00:00: 00 03-01 00:00 :00 No 5mg Take 1 tablet by mouth in the morning. [facility] memantine 5 mg tablet 3-0 4-21 00:00: 00 03-01 00:00 :00 No 5mg Take 1 tablet by mouth in the morning. [facility] donepeziL 5 mg tablet 3-0 4-21 00:00: 00 03-01 00:00 :00 No 5mg Take 1 tablet by mouth in the morning. [facility] memantine 5 mg tablet 2022-0 4-21 00:00: 00 03-01 00:00 :00 No 5mg Take 1 tablet by mouth in the morning. [facility] tamsulosin 0.4 mg 24 hr capsule 3-0 3-27 00:00: 00 01-13 04:59 :00 No [id number] .4mg Take 1 capsule by mouth in the morning for 30 days. [facility] tamsulosin 0.4 mg 24 hr capsule 3-0 3-27 00:00: 00 01-13 04:59 :00 No [id number] .4mg Take 1 capsule by mouth in the morning for 30 days. [facility] tamsulosin 0.4 mg 24 hr capsule 3-0 3-27 00:00: 00 01-13 04:59 :00 No [id number] .4mg Take 1 capsule by mouth in the morning for 30 days. [facility] tamsulosin 0.4 mg 24 hr capsule 12-13 00:00: 00 01-13 04:59 :00 No [id number] .4mg Take 1 capsule by mouth in the morning for 30 days. [facility] tamsulosin 0.4 mg 24 hr capsule 12-13 00:00: 00 01-13 04:59 :00 No [id number] .4mg Take 1 capsule by mouth in the morning for 30 days. [facility] tamsulosin 0.4 mg 24 hr capsule 12-13 00:00: 00 01-13 04:59 :00 No [id number] .4mg Take 1 capsule by mouth in the morning for 30 days. [facility] donepeziL (ARICEPT) tablet 5 mg 12-12 17:30: 00 Yes 5mg 5 mg, Oral, DAILY, First dose on 12/12/22 at 1230, Until Discontinu ed, Routine [facility] memantine (NAMENDA) tablet 5 mg 12-12 17:30: 00 Yes 5mg 5 mg, Oral, DAILY, First dose on 12/12/22 at 1230, Until Discontinu ed, Routine
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 [facility] rivaroxaban (XARELTO) 15 mg tablet 12-12 14:37: 13 Yes 15mg Take 1 tablet by mouth in the morning. [facility] aspirin 81 mg chewable tablet 12-12 14:37: 13 Yes 81mg Take 81 mg by mouth in the morning. tablet [facility] busPIRone 10 mg tablet 12-12 14:37: 13 Yes 10mg Take 1 tablet by mouth in the morning and 1 tablet in the evening. [facility] rivaroxaban (XARELTO) 15 mg tablet 12-12 14:37: 13 Yes 15mg Take 1 tablet by mouth in the morning. [facility] busPIRone 10 mg tablet 12-12 14:37: 13 Yes 10mg Take 1 tablet by mouth in the morning and 1 tablet in the evening. [facility] rivaroxaban (XARELTO) 15 mg tablet 12-12 14:37: 13 Yes 15mg Take 1 tablet by mouth in the morning. [facility] aspirin 81 mg chewable tablet 12-12 14:37: 13 Yes 81mg Take 81 mg by mouth in the morning. tablet [facility] busPIRone 10 mg tablet 12-12 14:37: 13 Yes 10mg Take 1 tablet by mouth in the morning and 1 tablet in the evening. [facility] rivaroxaban (XARELTO) 15 mg tablet 12-12 14:37: 13 Yes 15mg Take 1 tablet by mouth in the morning. [facility] aspirin 81 mg chewable tablet 12-12 14:37: 13 Yes 81mg Take 81 mg by mouth in the morning. tablet [facility] tamsulosin (FLOMAX) capsule 0.4 mg 12-12 14:00: 00 Yes .4mg 0.4 mg, Oral, DAILY, First dose on 12/12/22 at 0900, Until Discontinu ed, Routine [facility] aspirin EC tablet 81 mg 12-12 14:00: 00 Yes 81mg 81 mg, Oral, DAILY, First dose on 12/12/22 at 0900, Until Discontinu ed, Routine [facility] methylpredn isolone sod succ (SOLU-MEDRO L) injection 40 mg 12-12 14:00: 00 Yes 40mg 40 mg, Intravenou s, DAILY, First dose (after last modificati on) on 12/12/22 at 0900, Until Discontinu ed, Routine [facility] carvediloL 25 mg tablet 12-12 11:47: 13 12-12 00:00 :00 No 25mg Take 1 tablet by mouth in the morning and 1 tablet in the evening. Take with meals. [facility] busPIRone 30 mg tablet 12-12 11:47: 13 12-12 00:00 :00 No 30mg Take 1 tablet by mouth in the morning and 1 tablet in the evening. [facility] KCL 20 mEq tablet 12-12 11:47: 13 12-12 00:00 :00 No Take by mouth 2 (two) times daily. [facility] benazepriL 10 mg tablet 12-12 11:47: 13 12-12 00:00 :00 No 10mg Take 1 tablet by mouth in the morning. [facility] hydroCHLORO thiazide 25 mg tablet 12-12 11:47: 13 12-12 00:00 :00 No 25mg Take 1 tablet by mouth in the morning. [facility] melatonin (MELATIN) tablet 6 mg 12-12 02:00: 00 Yes 6mg 6 mg, Oral, QHS, First dose on 12/11/22 at 2100, Until Discontinu ed, Routine [facility] atorvastati n (LIPITOR) tablet 40 mg 12-12 02:00: 00 Yes 40mg 40 mg, Oral, QHS, First dose on 12/11/22 at 2100, Until Discontinu ed, Routine [facility] carvediloL 3.125 mg tablet 12-12 00:00: 00 01-12 04:59 :00 No [id number] 3.125mg Take 1 tablet by mouth in the morning and 1 tablet in the evening. Take with meals. Do all this for 30 days. [facility] atorvastati n 40 mg tablet 12-12 00:00: 00 01-12 04:59 :00 No [id number] 40mg Take 1 tablet by mouth at bedtime for 30 days. [facility] donepeziL 5 mg tablet 12-12 00:00: 00 01-12 04:59 :00 No [id number] 5mg Take 1 tablet by mouth in the morning for 30 days. [facility] memantine 5 mg tablet 2022-0 3- 00:00: 00 01-12 04:59 :00 No [id number] 5mg Take 1 tablet by mouth in the morning for 30 days. [facility] carvediloL 3.125 mg tablet 2022-0 3 00:00: 00 01-12 04:59 :00 No [id number] 3.125mg Take 1 tablet by mouth in the morning and 1 tablet in the evening. Take with meals. Do all this for 30 days. [facility] atorvastati n 40 mg tablet 2022-0 12-12 00:00: 00 01-12 04:59 :00 No [id number] 40mg Take 1 tablet by mouth at bedtime for 30 days. [facility] donepeziL 5 mg tablet 2022-0 12-12 00:00: 00 01-12 04:59 :00 No [id number] 5mg Take 1 tablet by mouth in the morning for 30 days. [facility] memantine 5 mg tablet 2022-0 12-12 00:00: 00 01-12 04:59 :00 No [id number] 5mg Take 1 tablet by mouth in the morning for 30 days. [facility] carvediloL 3.125 mg tablet 2022-0 12-12 00:00: 00 01-12 04:59 :00 No [id number] 3.125mg Take 1 tablet by mouth in the morning and 1 tablet in the evening. Take with meals. Do all this for 30 days. [facility] atorvastati n 40 mg tablet 2022-0 12-12 00:00: 00 01-12 04:59 :00 No [id number] 40mg Take 1 tablet by mouth at bedtime for 30 days. [facility] donepeziL 5 mg tablet 2022-0 3- 00:00: 00 01-12 04:59 :00 No [id number] 5mg Take 1 tablet by mouth in the morning for 30 days. [facility] memantine 5 mg tablet 12-12 00:00: 00 01-12 04:59 :00 No [id number] 5mg Take 1 tablet by mouth in the morning for 30 days. [facility] carvediloL 3.125 mg tablet 12-12 00:00: 00 01-12 04:59 :00 No [id number] 3.125mg Take 1 tablet by mouth in the morning and 1 tablet in the evening. Take with meals. Do all this for 30 days. [facility] atorvastati n 40 mg tablet 12-12 00:00: 00 01-12 04:59 :00 No [id number] 40mg Take 1 tablet by mouth at bedtime for 30 days. [facility] carvediloL 3.125 mg tablet 12-12 00:00: 00 01-12 04:59 :00 No [id number] 3.125mg Take 1 tablet by mouth in the morning and 1 tablet in the evening. Take with meals. Do all this for 30 days. [facility] atorvastati n 40 mg tablet 12-12 00:00: 00 01-12 04:59 :00 No [id number] 40mg Take 1 tablet by mouth at bedtime for 30 days. [facility] carvediloL 3.125 mg tablet 12-12 00:00: 00 01-12 04:59 :00 No [id number] 3.125mg Take 1 tablet by mouth in the morning and 1 tablet in the evening. Take with meals. Do all this for 30 days. [facility] atorvastati n 40 mg tablet 12-12 00:00: 00 01-12 04:59 :00 No [id number] 40mg Take 1 tablet by mouth at bedtime for 30 days. [facility] donepeziL 5 mg tablet 12-12 00:00: 00 01-07 00:00 :00 No [id number] 5mg Take 1 tablet by mouth in the morning for 30 days. [facility] memantine 5 mg tablet 12-12 00:00: 00 01-07 00:00 :00 No [id number] 5mg Take 1 tablet by mouth in the morning for 30 days. [facility] donepeziL 5 mg tablet 12-12 00:00: 00 01-07 00:00 :00 No [id number] 5mg Take 1 tablet by mouth in the morning for 30 days. [facility] memantine 5 mg tablet 12-12 00:00: 00 01-07 00:00 :00 No [id number] 5mg Take 1 tablet by mouth in the morning for 30 days. [facility] levalbutero l (XOPENEX) nebulizer solution 1.25 mg 12-11 17:00: 00 Yes 1.25mg 1.25 mg, Inhalation , QID, First dose (after last modificati on) on 12/11/22 at 1200, Until Discontinu ed, Routine [facility] rivaroxaban (XARELTO) tablet 15 mg 12-11 14:00: 00 Yes 15mg 15 mg, Oral, DAILY, First dose on 12/11/22 at 0900, Until Discontinu ed, Routine [facility] nicotine (NICODERM) 21 mg/24 hr patch 1 Patch 12-11 13:45: 00 Yes 1{patch } 1 Patch, Topical, Administer over 24 Hours, Q24H, First dose on 12/11/22 at 0845, Until Discontinu ed, Routine [facility] ipratropium (ATROVENT) 0.02 % nebulizer solution 0.5 mg 12-11 13:00: 00 Yes .5mg 0.5 mg, Inhalation , QID, First dose on 12/11/22 at 0800, Until Discontinu ed [facility] carvediloL (COREG) tablet 3.125 mg 12-11 13:00: 00 Yes 3.125mg 3.125 mg, Oral, BID MEALS, First dose on 12/11/22 at 0800, Until Discontinu ed, Routine [facility] busPIRone (BUSPAR) tablet 10 mg 12-11 13:00: 00 Yes 10mg 10 mg, Oral, BID, First dose on Tue12/11/22 at 0800, Until Discontinu ed, Routine [facility] methylpredn isolone sod succ (SOLU-MEDRO L) injection 125 mg 12-11 05:00: 00 12-11 12:35 :32 No 125mg 125 mg, Intravenou s, Q6H, First dose on Tue12/11/22 at 0000, Until Discontinu ed, Routine [facility] NaCl 0.9% (NS) IV infusion 1,000 mL 12-11 03:30: 00 12-11 14:48 :38 No 1000mL at 100 mL/hr, IV Infusion, CONTINUOUS , Starting on Tue12/10/22 at 2230, Until Tue12/11/22 at 0948, Routine [facility] albuterol (VENTOLIN) inhaler 2 Puff 12-11 03:17: 09 Yes 2{puff} 2 Puff, Inhalation , Q4HPRN, Starting on Tue12/10/22 at 2217, Until Discontinu ed, Routine, Wheezing, Shortness of Breath [facility] ondansetron (ZOFRAN (PF)) injection 4 mg 12-11 03:05: 14 Yes 4mg 4 mg, Slow IV Push, Q6HPRN, Starting on Tue12/10/22 at 2205, Until Discontinu ed, Routine, Nausea and Vomiting (N/V) [facility] HYDROcodone -acetaminop hen (NORCO) 10-325 mg tablet 1 tablet 12-11 03:05: 00 Yes 1{tbl} 1 tablet, Oral, Q6HPRN, Starting on Tue12/10/22 at 2205, Until Discontinu ed, Routine, Pain (scale 7-10) [facility] HYDROcodone -acetaminop hen (NORCO 5) 5-325 mg tablet 1 tablet 12-11 03:04: 56 12-13 03:03 :56 No 1{tbl} 1 tablet, Oral, Q6HPRN, Starting on Tue12/10/22 at 2204, Until 12/12/22 at 2203, Routine, Pain (scale 4-6) [facility] acetaminoph en (TYLENOL) tablet 650 mg 12-11 03:04: 50 Yes 650mg 650 mg, Oral, Q6HPRN, Starting on Tue12/10/22 at 2204, Until Discontinu ed, Routine, Pain (scale 1-3) [facility] levalbutero l (XOPENEX) nebulizer solution 1.25 mg 12-11 01:00: 00 12-11 15:57 :00 No 1.25mg 1.25 mg, Inhalation , TID, First dose on Tue12/10/22 at 2000, Until Discontinu ed, Routine [facility] NaCl 0.9% (NS) bolus infusion 1,000 mL 12-11 00:15: 00 12-11 03:18 :00 No 1000mL at 999 mL/hr, 1,000 mL, IV Infusion, ONCE, 1 dose, On Tue12/10/22 at 1915, STAT [facility] ipratropium (ATROVENT) 0.02 % nebulizer solution 0.5 mg 12-10 23:48: 58 Yes .5mg 0.5 mg, Inhalation , Q4HPRN, Starting on Tue12/10/22 at 1848, Until Discontinu ed, Routine, Wheezing, Shortness of Breath [facility] NaCl 0.9% (NS) bolus infusion 500 mL 12-04 16:15: 00 12-04 15:41 :58 No 500mL at 999 mL/hr, 500 mL, IV Piggyback, ONCE, 1 dose, On Tue12/04/22 at 1115, STAT [facility] carvediloL 3.125 mg tablet 12-04 12:44: 03 Yes 3.125mg Take 1 tablet by mouth in the morning and 1 tablet in the evening. Take with meals. [facility] busPIRone 10 mg tablet 12-04 12:44: 03 Yes 10mg Take 1 tablet by mouth in the morning and 1 tablet in the evening. [facility] busPIRone 30 mg tablet 3-0 3-18 12:44: 03 Yes 30mg Take 1 tablet by mouth in the morning and 1 tablet in the evening. [facility] KCL 20 mEq tablet 3-0 3-18 12:44: 03 Yes Take by mouth 2 (two) times daily. [facility] benazepriL 10 mg tablet 3-0 3-18 12:44: 03 Yes 10mg Take 1 tablet by mouth in the morning. [facility] rivaroxaban (XARELTO) 15 mg tablet 3-0 -18 12:44: 03 Yes 15mg Take 1 tablet by mouth in the morning. [facility] carvediloL 3.125 mg tablet 3-0 3-18 12:44: 03 Yes 3.125mg Take 1 tablet by mouth in the morning and 1 tablet in the evening. Take with meals. [facility] busPIRone 10 mg tablet 3-0 -18 12:44: 03 Yes 10mg Take 1 tablet by mouth in the morning and 1 tablet in the evening. [facility] busPIRone 30 mg tablet 3-0 18 12:44: 03 Yes 30mg Take 1 tablet by mouth in the morning and 1 tablet in the evening. [facility] KCL 20 mEq tablet 3-0 18 12:44: 03 Yes Take by mouth 2 (two) times daily. [facility] benazepriL 10 mg tablet 3-0 -18 12:44: 03 Yes 10mg Take 1 tablet by mouth in the morning. [facility] rivaroxaban (XARELTO) 15 mg tablet 3-0 3-18 12:44: 03 Yes 15mg Take 1 tablet by mouth in the morning. [facility] carvediloL 3.125 mg tablet 3-0 3-18 12:44: 03 Yes 3.125mg Take 1 tablet by mouth in the morning and 1 tablet in the evening. Take with meals. [facility] busPIRone 10 mg tablet 2023-0 3-18 12:44: 03 Yes 10mg Take 1 tablet by mouth in the morning and 1 tablet in the evening. [facility] busPIRone 30 mg tablet 12-04 12:44: 03 Yes 30mg Take 1 tablet by mouth in the morning and 1 tablet in the evening. [facility] KCL 20 mEq tablet 12-04 12:44: 03 Yes Take by mouth 2 (two) times daily. [facility] benazepriL 10 mg tablet 12-04 12:44: 03 Yes 10mg Take 1 tablet by mouth in the morning. [facility] rivaroxaban (XARELTO) 15 mg tablet 12-04 12:44: 03 Yes 15mg Take 1 tablet by mouth in the morning. [facility] carvediloL 3.125 mg tablet 12-04 12:44: 03 Yes 3.125mg Take 1 tablet by mouth in the morning and 1 tablet in the evening. Take with meals. [facility] busPIRone 10 mg tablet 12-04 12:44: 03 Yes 10mg Take 1 tablet by mouth in the morning and 1 tablet in the evening. [facility] busPIRone 30 mg tablet 12-04 12:44: 03 Yes 30mg Take 1 tablet by mouth in the morning and 1 tablet in the evening. [facility] KCL 20 mEq tablet 12-04 12:44: 03 Yes Take by mouth 2 (two) times daily. [facility] benazepriL 10 mg tablet 12-04 12:44: 03 Yes 10mg Take 1 tablet by mouth in the morning. [facility] rivaroxaban (XARELTO) 15 mg tablet 12-04 12:44: 03 Yes 15mg Take 1 tablet by mouth in the morning. [facility] albuterol 90 mcg/actuati on inhaler 12-04 00:00: 00 Yes [id number] 2{puff} Inhale 2 Puffs every 6 (six) hours as needed for Wheezing or Shortness of Breath. [facility] albuterol 90 mcg/actuati on inhaler 318 00:00: 00 Yes [id number] 2{puff} Inhale 2 Puffs every 6 (six) hours as needed for Wheezing or Shortness of Breath. [facility] albuterol 90 mcg/actuati on inhaler 3 00:00: 00 Yes [id number] 2{puff} Inhale 2 Puffs every 6 (six) hours as needed for Wheezing or Shortness of Breath. [facility] albuterol 90 mcg/actuati on inhaler 3 00:00: 00 Yes [id number] 2{puff} Inhale 2 Puffs every 6 (six) hours as needed for Wheezing or Shortness of Breath. [facility] albuterol 90 mcg/actuati on inhaler 3 00:00: 00 Yes [id number] 2{puff} Inhale 2 Puffs every 6 (six) hours as needed for Wheezing or Shortness of Breath. [facility] albuterol 90 mcg/actuati on inhaler 3 00:00: 00 Yes [id number] 2{puff} Inhale 2 Puffs every 6 (six) hours as needed for Wheezing or Shortness of Breath. [facility] albuterol 90 mcg/actuati on inhaler 3 00:00: 00 Yes [id number] 2{puff} Inhale 2 Puffs every 6 (six) hours as needed for Wheezing or Shortness of Breath. [facility] albuterol 90 mcg/actuati on inhaler 318 00:00: 00 Yes [id number] 2{puff} Inhale 2 Puffs every 6 (six) hours as needed for Wheezing or Shortness of Breath. [facility] albuterol 90 mcg/actuati on inhaler 318 00:00: 00 Yes [id number] 2{puff} Inhale 2 Puffs every 6 (six) hours as needed for Wheezing or Shortness of Breath. [facility] albuterol 90 mcg/actuati on inhaler 318 00:00: 00 Yes [id number] 2{puff} Inhale 2 Puffs every 6 (six) hours as needed for Wheezing or Shortness of Breath. [facility] albuterol 90 mcg/actuati on inhaler 318 00:00: 00 Yes [id number] 2{puff} Inhale 2 Puffs every 6 (six) hours as needed for Wheezing or Shortness of Breath. [facility] albuterol 90 mcg/actuati on inhaler 18 00:00: 00 Yes [id number] 2{puff} Inhale 2 Puffs every 6 (six) hours as needed for Wheezing or Shortness of Breath. [facility] albuterol 90 mcg/actuati on inhaler 18 00:00: 00 01-19 00:00 :00 No [id number] 2{puff} Inhale 2 Puffs every 6 (six) hours as needed for Wheezing or Shortness of Breath. [facility] tiotropium 18 mcg inhalation 0 318 00:00: 00 01-04 04:59 :00 No [id number] 18ug Inhale 1 capsule in the morning for 30 days. [facility] tiotropium 18 mcg inhalation 2022-0 318 00:00: 00 01-04 04:59 :00 No [id number] 18ug Inhale 1 capsule in the morning for 30 days. [facility] tiotropium 18 mcg inhalation 2022-0 3-18 00:00: 00 01-04 04:59 :00 No [id number] 18ug Inhale 1 capsule in the morning for 30 days. [facility] tiotropium 18 mcg inhalation 2022-0 3-18 00:00: 00 01-04 04:59 :00 No [id number] 18ug Inhale 1 capsule in the morning for 30 days. [facility] tiotropium 18 mcg inhalation 2022-0 3-18 00:00: 00 01-04 04:59 :00 No [id number] 18ug Inhale 1 capsule in the morning for 30 days. [facility] tiotropium 18 mcg inhalation 2022-0 3-18 00:00: 00 01-04 04:59 :00 No [id number] 18ug Inhale 1 capsule in the morning for 30 days. [facility] tiotropium 18 mcg inhalation 2022-0 3-18 00:00: 00 01-04 04:59 :00 No [id number] 18ug Inhale 1 capsule in the morning for 30 days. [facility] tiotropium 18 mcg inhalation 2022-0 3-18 00:00: 00 01-04 04:59 :00 No [id number] 18ug Inhale 1 capsule in the morning for 30 days. [facility] doxycycline hyclate 100 mg capsule 18 00:00: 00 12-10 04:59 :00 No [id number] 100mg Take 1 capsule by mouth every 12 (twelve) hours for 5 days. [facility] predniSONE 20 mg tablet 18 00:00: 00 12-10 04:59 :00 No [id number] 40mg Take 2 tablets by mouth in the morning for 5 days. [facility] doxycycline hyclate 100 mg capsule 18 00:00: 00 12-10 04:59 :00 No [id number] 100mg Take 1 capsule by mouth every 12 (twelve) hours for 5 days. [facility] predniSONE 20 mg tablet 18 00:00: 00 12-10 04:59 :00 No [id number] 40mg Take 2 tablets by mouth in the morning for 5 days. [facility] rivaroxaban (XARELTO) tablet 15 mg 12-03 17:15: 00 Yes 15mg 15 mg, Oral, DAILY, First dose (after last modificati on) on Tue12/03/22 at 1215, Until Discontinu ed, Routine [facility] enoxaparin (LOVENOX) injection 40 mg 16 22:00: 00 12-03 16:06 :59 No 40mg 40 mg, Subcutaneo us, DAILY, First dose on Tue12/02/22 at 1700, Until Discontinu ed, Routine [facility] methylPREDN ISolone sod succ (SOLU-MEDRO L (PF)) injection 40 mg 12-02 19:00: 00 Yes 40mg 40 mg, Intravenou s, Q8H, First dose on Tue12/02/22 at 1400, Until Discontinu ed, 1 mL [facility] codeine-gua ifenesin (ROBITUSSIN AC) 10-100 mg/5 mL oral solution 5 mL 12-02 16:25: 07 Yes 5mL 5 mL, Oral, Q6HPRN, Starting on Tue12/02/22 at 1125, Until Discontinu ed, Routine, Cough [facility] levalbutero l (XOPENEX) nebulizer solution 1.25 mg 12-02 13:00: 00 Yes 1.25mg 1.25 mg, Inhalation , Q4H, First dose on Tue12/02/22 at 0800, Until Discontinu ed, Routine [facility] ipratropium (ATROVENT) 0.02 % nebulizer solution 0.5 mg 12-02 13:00: 00 Yes .5mg 0.5 mg, Inhalation , Q4H, First dose on Tue12/02/22 at 0800, Until Discontinu ed, Routine [facility] doxycycline hyclate (Vibramycin ) capsule 100 mg 12-02 11:45: 00 12-07 11:44 :00 No 100mg 100 mg, Oral, Q12H ABX, 10 doses, First dose on Tue12/02/22 at 0645, Last dose on Tue12/06/22 at 1845, MICHAEL
Re ason for Anti-Infec tive: Empiric Therapy for Suspected Infection< br>Empiric Therapy Site: Respirator y
Durat ion of therapy: 5 days [facility] NaCl 0.9% (NS) IV infusion 1,000 mL 12-02 11:45: 00 12-02 14:24 :54 No 1000mL at 75 mL/hr, IV Infusion, CONTINUOUS , Starting on Tue12/02/22 at 0645, Until Tue12/02/22 at 0924, Routine [facility] famotidine (PEPCID AC) tablet 20 mg 12-02 11:30: 03 Yes 20mg 20 mg, Oral, BIDPRN, Starting on Tue12/02/22 at 0630, Until Discontinu ed, Routine, Indigestio n, Heartburn [facility] ondansetron (ZOFRAN (PF)) injection 4 mg 12-02 11:30: 03 Yes 4mg 4 mg, Slow IV Push, Q6HPRN, Starting on Tue12/02/22 at 0630, Until Discontinu ed, Routine, Nausea and Vomiting (N/V) [facility] bisacodyL (DULCOLAX) tablet 10 mg 12-02 11:30: 03 Yes 10mg 10 mg, Oral, QDAILYPRN, Starting on Tue12/02/22 at 0630, Until Discontinu ed, Routine, Constipati on [facility] acetaminoph en (TYLENOL) tablet 650 mg 12-02 11:30: 03 Yes 650mg 650 mg, Oral, Q6HPRN, Starting on Tue12/02/22 at 0630, Until Discontinu ed, Routine, Pain (scale 1-3) [facility] methylpredn isolone sod succ (SOLU-MEDRO L) injection 125 mg 12-02 06:15: 00 12-02 05:27 :00 No 125mg 125 mg, Intravenou s, ONCE, 1 dose, On Tue12/02/22 at 0115, 2 mL [facility] ipratropium -albuteroL (DUONEB) 0.5 mg-3 mg(2.5 mg base)/3 mL nebulizer solution 6 mL 12-02 06:15: 00 12-02 05:33 :00 No 6mL 6 mL, Inhalation , ONCE, 1 dose, On Tue12/02/22 at 0115, Routine [facility] levalbutero l (XOPENEX) nebulizer solution 0.63 mg 12-01 13:15: 00 12-01 12:38 :00 No .63mg 0.63 mg, Inhalation , ONCE, 1 dose, On Tue12/01/22 at 0815, Routine [facility] ipratropium (ATROVENT) 0.02 % nebulizer solution 0.5 mg 12-01 12:30: 00 12-01 12:38 :00 No .5mg 0.5 mg, Inhalation , ONCE, 1 dose, On Tue12/01/22 at 0730, MICHAEL [facility] levalbutero l (XOPENEX) nebulizer solution 1.25 mg 12-01 11:15: 00 12-01 10:38 :00 No 1.25mg 1.25 mg, Inhalation , ONCE, 1 dose, On Tue12/01/22 at 0615, Routine [facility] ipratropium (ATROVENT) 0.02 % nebulizer solution 0.5 mg 12-01 10:30: 00 12-01 10:38 :00 No .5mg 0.5 mg, Inhalation , ONCE, 1 dose, On Tue12/01/22 at 0530, [facility] methylPREDN ISolone sod succ (SOLU-MEDRO L (PF)) injection 40 mg 12-01 10:30: 00 12-01 10:35 :00 No 40mg 40 mg, Intravenou s, ONCE, 1 dose, On Tue12/01/22 at 0530, [facility] Nebulizer & Compressor For Neb Kami 12-01 00:00: 00 Yes [id number] Use as directed [facility] albuterol 90 mcg/actuati on inhaler 12-01 00:00: 00 Yes [id number] 2{puff} Inhale 2 Puffs every 4 (four) hours as needed for Wheezing or Shortness of Breath. [facility] Nebulizer & Compressor For Neb Kami 3-0 3-15 00:00: 00 Yes [id number] Use as directed [facility] albuterol 90 mcg/actuati on inhaler 2022-0 3-15 00:00: 00 Yes [id number] 2{puff} Inhale 2 Puffs every 4 (four) hours as needed for Wheezing or Shortness of Breath. [facility] Nebulizer & Compressor For Neb Kami 2022-0 3-15 00:00: 00 Yes [id number] Use as directed [facility] albuterol 90 mcg/actuati on inhaler 2022-0 3-15 00:00: 00 Yes [id number] 2{puff} Inhale 2 Puffs every 4 (four) hours as needed for Wheezing or Shortness of Breath. [facility] Nebulizer & Compressor For Neb Kami 2022-0 3-15 00:00: 00 Yes [id number] Use as directed [facility] Nebulizer & Compressor For Neb Kami 2022-0 3-15 00:00: 00 Yes [id number] Use as directed [facility] Nebulizer & Compressor For Neb Kami 2022-0 3-15 00:00: 00 Yes [id number] Use as directed [facility] Nebulizer & Compressor For Neb Kami 2022-0 3-15 00:00: 00 Yes [id number] Use as directed [facility] Nebulizer & Compressor For Neb Kami 2022-0 3-15 00:00: 00 Yes [id number] Use as directed [facility] Nebulizer & Compressor For Neb Kami 2022-0 3-15 00:00: 00 Yes [id number] Use as directed [facility] Nebulizer & Compressor For Neb Kami 2022-0 3-15 00:00: 00 Yes [id number] Use as directed [facility] Nebulizer & Compressor For Neb Kami 3-0 3-15 00:00: 00 Yes [id number] Use as directed [facility] Nebulizer & Compressor For Neb Kami 3-0 3-15 00:00: 00 Yes [id number] Use as directed [facility] Nebulizer & Compressor For Neb Kami 2022-0 3-15 00:00: 00 Yes [id number] Use as directed [facility] Nebulizer & Compressor For Neb Kami 2022-0 3-15 00:00: 00 Yes Use as directed [facility] Nebulizer & Compressor For Neb Kami 2022-0 3-15 00:00: 00 Yes [id number] Use as directed [facility] Nebulizer & Compressor For Neb Kami 2022-0 3-15 00:00: 00 Yes [id number] Use as directed [facility] Nebulizer & Compressor For Neb Kami 2022-0 3-15 00:00: 00 Yes [id number] Use as directed [facility] Nebulizer & Compressor For Neb Kami 2022-0 3-15 00:00: 00 Yes [id number] Use as directed [facility] Nebulizer & Compressor For Neb Kami 2022-0 3-15 00:00: 00 Yes [id number] Use as directed [facility] Nebulizer & Compressor For Neb Kami 2022-0 3-15 00:00: 00 Yes [id number] Use as directed [facility] Nebulizer & Compressor For Neb Kami 2022-0 3-15 00:00: 00 Yes [id number] Use as directed [facility] Nebulizer & Compressor For Neb Kami 2022-0 3-15 00:00: 00 Yes [id number] Use as directed [facility] Nebulizer & Compressor For Neb Kami 2022-0 3-15 00:00: 00 Yes [id number] Use as directed [facility] Nebulizer & Compressor For Neb Kami 2022-0 3-15 00:00: 00 Yes [id number] Use as directed [facility] Nebulizer & Compressor For Neb Kami 2022-0 3-15 00:00: 00 Yes [id number] Use as directed [facility] Nebulizer & Compressor For Neb Kami 2022-0 3-15 00:00: 00 Yes [id number] Use as directed [facility] Nebulizer & Compressor For Neb Kami 2022-0 3-15 00:00: 00 Yes [id number] Use as directed [facility] Nebulizer & Compressor For Neb Kami 2022-0 3-15 00:00: 00 Yes [id number] Use as directed [facility] Nebulizer & Compressor For Neb Kami 2022-0 3-15 00:00: 00 Yes [id number] Use as directed [facility] Nebulizer & Compressor For Neb Kami 2022-0 3-15 00:00: 00 Yes [id number] Use as directed [facility] Nebulizer & Compressor For Neb Kami 2022-0 3-15 00:00: 00 Yes [id number] Use as directed [facility] Nebulizer & Compressor For Neb Kami 2022-0 3-15 00:00: 00 Yes [id number] Use as directed [facility] Nebulizer & Compressor For Neb Kami 2022-0 3-15 00:00: 00 Yes [id number] Use as directed [facility] Nebulizer & Compressor For Neb Akmi 2022-0 3-15 00:00: 00 Yes [id number] Use as directed [facility] Nebulizer & Compressor For Neb Kami 2022-0 3-15 00:00: 00 Yes [id number] Use as directed [facility] Nebulizer & Compressor For Neb Kami 2022-0 3-15 00:00: 00 Yes [id number] Use as directed [facility] Nebulizer & Compressor For Neb Kami 2022-0 3-15 00:00: 00 Yes [id number] Use as directed [facility] Nebulizer & Compressor For Neb Kami 3-0 3-15 00:00: 00 Yes [id number] Use as directed [facility] Nebulizer & Compressor For Neb Kami 3-0 3-15 00:00: 00 Yes [id number] Use as directed [facility] Nebulizer & Compressor For Neb Kami 3-0 3-15 00:00: 00 Yes [id number] Use as directed [facility] Nebulizer & Compressor For Neb Kami 2023-0 3-15 00:00: 00 Yes [id number] Use as directed [facility] Nebulizer & Compressor For Neb Kami 0 315 00:00: 00 Yes [id number] Use as directed [facility] Nebulizer & Compressor For Neb Kami 315 00:00: 00 Yes [id number] Use as directed [facility] Nebulizer & Compressor For Neb Kami 3-15 00:00: 00 Yes [id number] Use as directed [facility] albuterol 90 mcg/actuati on inhaler 315 00:00: 00 Yes [id number] 2{puff} Inhale 2 Puffs every 4 (four) hours as needed for Wheezing or Shortness of Breath. [facility] predniSONE 50 mg tablet 315 00:00: 00 Yes [id number] 50mg Take 1 tablet by mouth in the morning. [facility] Nebulizer & Compressor For Neb Kami 315 00:00: 00 Yes [id number] Use as directed [facility] albuterol 90 mcg/actuati on inhaler 315 00:00: 00 Yes [id number] 2{puff} Inhale 2 Puffs every 4 (four) hours as needed for Wheezing or Shortness of Breath. [facility] albuterol 90 mcg/actuati on inhaler 15 00:00: 00 12-12 00:00 :00 No [id number] 2{puff} Inhale 2 Puffs every 4 (four) hours as needed for Wheezing or Shortness of Breath. [facility] predniSONE 50 mg tablet 315 00:00: 00 12-04 00:00 :00 No [id number] 50mg Take 1 tablet by mouth in the morning. [facility] omeprazole 40 mg capsule 12 14:11: 21 11-28 00:00 :00 No 40mg Take 40 mg by mouth daily. [facility] carvediloL 25 mg tablet 11-28 14:: 11-28 00:00 :00 No 25mg Take 25 mg by mouth 2 (two) times daily with meals. [facility] busPIRone 30 mg tablet 11-28 14:: 11-28 00:00 :00 No 30mg Take 30 mg by mouth 2 (two) times daily. [facility] benazepriL 10 mg tablet 11-28 14:: 11-28 00:00 :00 No 10mg Take 10 mg by mouth daily. [facility] hydroCHLORO thiazide 25 mg tablet 11-28 14:: 11-28 00:00 :00 No 25mg Take 25 mg by mouth daily. [facility] levalbutero l (XOPENEX) nebulizer solution 0.63 mg 11-28 13:00: 00 Yes .63mg 0.63 mg, Inhalation , TID, First dose (after last modificati on) on 11/28/22 at 0800, Until Discontinu ed, Routine [facility] iprat[facility]ium (ATROVENT) 0.02 % nebulizer solution 0.5 mg 11-27 20:00: 00 Yes .5mg 0.5 mg, Inhalation , TID, First dose (after last modificati on) on 11/27/22 at 1400, Until Discontinu ed, Routine [facility] [place] [place] [facility] nicotine (NICODERM) 21 mg/24 hr patch 1 Patch 11-27 17:30: 00 Yes 1{patch } 1 Patch, Topical, Administer over 24 Hours, Q24H, First dose on 11/27/22 at 1130, Until Discontinu ed, Routine [facility] busPIRone (BUSPAR) tablet 10 mg 11-27 16:15: 00 Yes 10mg 10 mg, Oral, TID, First dose on 11/27/22 at 1015, Until Discontinu ed, Routine [facility] aspirin chewable tablet 81 mg 11-27 16:15: 00 Yes 81mg 81 mg, Oral, DAILY, First dose on 11/27/22 at 1015, Until Discontinu ed, Routine [facility] foLIC acid (FOLATE) tablet 1 mg 11-27 15:00: 00 Yes 1mg 1 mg, Oral, DAILY, First dose on Tue11/27/22 at 0900, Until Discontinu ed, Routine [facility] rivaroxaban (XARELTO) tablet 20 mg 11-27 15:00: 00 Yes 20mg 20 mg, Oral, DAILY, First dose on 11/27/22 at 0900, Until Discontinu ed, Routine [facility] omeprazole (PRILOSEC) capsule 40 mg 11-27 15:00: 00 Yes 40mg 40 mg, Oral, DAILY, First dose on Tue11/27/22 at 0900, Until Discontinu ed [facility] predniSONE (DELTASONE) tablet 40 mg 11-27 15:00: 00 12-02 13:59 :00 No 40mg 40 mg, Oral, DAILY, 5 doses, First dose on Tue11/27/22 at 0900, Last dose on Tue12/01/22 at 0900, Routine [facility] carvediloL (COREG) tablet 25 mg 11-27 14:00: 00 Yes 25mg 25 mg, Oral, BID MEALS, First dose on Tue11/27/22 at 0800, Until Discontinu ed, Routine [facility] levalbutero l (XOPENEX) nebulizer solution 0.31 mg 11-27 14:00: 00 11-28 12:33 :58 No .31mg 0.31 mg, Inhalation , TID, First dose on Tue11/27/22 at 0800, Until Discontinu ed, Routine [facility] ipratropium (ATROVENT) 0.02 % nebulizer solution 0.5 mg 11-27 14:00: 00 11-27 18:48 :56 No .5mg 0.5 mg, Inhalation , QID, First dose on Tue11/27/22 at 0800, Until Discontinu ed, Routine [facility] thiamine (VITAMIN B1) tablet 100 mg 11-27 08:30: 00 Yes 100mg 100 mg, Oral, DAILY, First dose (after last modificati on) on Tue11/27/22 at 0230, Until Discontinu ed, Routine [facility] LORazepam (ATIVAN) injection 1 mg 11-27 08:16: 19 Yes 1mg 1 mg, Slow IV Push, Q4HPRN, Starting on Tue11/27/22 at 0216, Until Discontinu ed, Routine, Agitation, Seizures, withdrawl [facility] levalbutero l (XOPENEX) nebulizer solution 1.25 mg 11-19 14:00: 00 Yes 1.25mg 1.25 mg, Inhalation , TID, First dose on Tue11/19/22 at 0800, Until Discontinu ed, Routine [facility] ipratropium (ATROVENT) 0.02 % nebulizer solution 0.5 mg 11-19 09:30: 00 11-19 08:47 :00 No .5mg 0.5 mg, Inhalation , ONCE, 1 dose, On Tue11/19/22 at 0330, Routine [facility] levalbutero l (XOPENEX) nebulizer solution 1.25 mg 11-19 02:00: 00 11-19 01:21 :00 No 1.25mg 1.25 mg, Inhalation , ONCE, 1 dose, On Elizabeth 11/18/22 at 2000, Routine [facility] thiamine 100 mg tablet 224 00:00: 00 12-13 04:59 :00 No [id number] 100mg Take 1 tablet by mouth in the morning for 30 days. [facility] thiamine 100 mg tablet 0 2-24 00:00: 00 12-13 04:59 :00 No [id number] 100mg Take 1 tablet by mouth in the morning for 30 days. [facility] thiamine 100 mg tablet 0 2-24 00:00: 00 12-13 04:59 :00 No [id number] 100mg Take 1 tablet by mouth in the morning for 30 days. [facility] thiamine 100 mg tablet 0 224 00:00: 00 12-13 04:59 :00 No [id number] 100mg Take 1 tablet by mouth in the morning for 30 days. [facility] thiamine 100 mg tablet 0 24 00:00: 00 12-13 04:59 :00 No [id number] 100mg Take 1 tablet by mouth in the morning for 30 days. [facility] thiamine 100 mg tablet 0 24 00:00: 00 11-28 00:00 :00 No [id number] 100mg Take 1 tablet by mouth in the morning for 30 days. [facility] thiamine (VITAMIN B1) tablet 100 mg 11-11 15:00: 00 Yes 100mg 100 mg, Oral, DAILY, First dose on Tue11/11/22 at 0900, Until Discontinu ed, Routine [facility] omeprazole 40 mg capsule 11-11 13:41: 29 Yes 40mg Take 40 mg by mouth daily. [facility] carvediloL 25 mg tablet 11-11 13:41: 29 Yes 25mg Take 25 mg by mouth 2 (two) times daily with meals. [facility] busPIRone 30 mg tablet 11-11 13:41: 29 Yes 30mg Take 30 mg by mouth 2 (two) times daily. [facility] benazepriL 10 mg tablet 11-11 13:41: 29 Yes 10mg Take 10 mg by mouth daily. [facility] hydroCHLORO thiazide 25 mg tablet 11-11 13:41: 29 Yes 25mg Take 25 mg by mouth daily. [facility] omeprazole 40 mg capsule 11-11 13:41: 29 Yes 40mg Take 40 mg by mouth daily. [facility] carvediloL 25 mg tablet 11-11 13:41: 29 Yes 25mg Take 25 mg by mouth 2 (two) times daily with meals. [facility] busPIRone 30 mg tablet 11-11 13:41: 29 Yes 30mg Take 30 mg by mouth 2 (two) times daily. [facility] benazepriL 10 mg tablet 11-11 13:41: 29 Yes 10mg Take 10 mg by mouth daily. [facility] hydroCHLORO thiazide 25 mg tablet 11-11 13:41: 29 Yes 25mg Take 25 mg by mouth daily. [facility] omeprazole 40 mg capsule 11-11 13:41: 29 Yes 40mg Take 40 mg by mouth daily. [facility] carvediloL 25 mg tablet 11-11 13:41: 29 Yes 25mg Take 25 mg by mouth 2 (two) times daily with meals. [facility] busPIRone 30 mg tablet 11-11 13:41: 29 Yes 30mg Take 30 mg by mouth 2 (two) times daily. [facility] benazepriL 10 mg tablet 11-11 13:41: 29 Yes 10mg Take 10 mg by mouth daily. [facility] hydroCHLORO thiazide 25 mg tablet 11-11 13:41: 29 Yes 25mg Take 25 mg by mouth daily. [facility] omeprazole 40 mg capsule 11-11 13:41: 29 Yes 40mg Take 40 mg by mouth daily. [facility] carvediloL 25 mg tablet 11-11 13:41: 29 Yes 25mg Take 25 mg by mouth 2 (two) times daily with meals. [facility] busPIRone 30 mg tablet 11-11 13:41: 29 Yes 30mg Take 30 mg by mouth 2 (two) times daily. [facility] benazepriL 10 mg tablet 11-11 13:41: 29 Yes 10mg Take 10 mg by mouth daily. [facility] hydroCHLORO thiazide 25 mg tablet 11-11 13:41: 29 Yes 25mg Take 25 mg by mouth daily. [facility] omeprazole 40 mg capsule 11-11 13:41: 29 Yes 40mg Take 40 mg by mouth daily. [facility] carvediloL 25 mg tablet 11-11 13:41: 29 Yes 25mg Take 25 mg by mouth 2 (two) times daily with meals. [facility] busPIRone 30 mg tablet 11-11 13:41: 29 Yes 30mg Take 30 mg by mouth 2 (two) times daily. [facility] benazepriL 10 mg tablet 11-11 13:41: 29 Yes 10mg Take 10 mg by mouth daily. [facility] hydroCHLORO thiazide 25 mg tablet 11-11 13:41: 29 Yes 25mg Take 25 mg by mouth daily. [facility] foLIC acid (FOLATE) tablet 1 mg 11-11 00:15: 00 11-11 00:26 :00 No 1mg 1 mg, Oral, ONCE, 1 dose, On Tue11/10/22 at 1815, Routine [facility] benzocaine- menthoL lozenge 11-11 00:00: 00 Yes [id number] 1{lozen ge} Take 1 Lozenge by mouth every 4 (four) hours as needed for Sore throat. [facility] budesonide- formoteroL 80-4.5 mcg/actuati on inhaler 11-11 00:00: 00 Yes [id number] 2{puff} Inhale 2 Puffs in the morning and 2 Puffs in the evening. [facility] benzocaine- menthoL lozenge 11-11 00:00: 00 Yes [id number] 1{lozen ge} Take 1 Lozenge by mouth every 4 (four) hours as needed for Sore throat. [facility] budesonide- formoteroL 80-4.5 mcg/actuati on inhaler 11-11 00:00: 00 Yes [id number] 2{puff} Inhale 2 Puffs in the morning and 2 Puffs in the evening. [facility] benzocaine- menthoL lozenge 11-11 00:00: 00 Yes [id number] 1{lozen ge} Take 1 Lozenge by mouth every 4 (four) hours as needed for Sore throat. [facility] budesonide- formoteroL 80-4.5 mcg/actuati on inhaler 11-11 00:00: 00 Yes [id number] 2{puff} Inhale 2 Puffs in the morning and 2 Puffs in the evening. [facility] benzocaine- menthoL lozenge 11-11 00:00: 00 Yes [id number] 1{lozen ge} Take 1 Lozenge by mouth every 4 (four) hours as needed for Sore throat. [facility] budesonide- formoteroL 80-4.5 mcg/actuati on inhaler 11-11 00:00: 00 Yes [id number] 2{puff} Inhale 2 Puffs in the morning and 2 Puffs in the evening. [facility] benzocaine- menthoL lozenge 11-11 00:00: 00 Yes [id number] 1{lozen ge} Take 1 Lozenge by mouth every 4 (four) hours as needed for Sore throat. [facility] budesonide- formoteroL 80-4.5 mcg/actuati on inhaler 11-11 00:00: 00 Yes [id number] 2{puff} Inhale 2 Puffs in the morning and 2 Puffs in the evening. [facility] benzocaine- menthoL lozenge 11-11 00:00: 00 11-28 00:00 :00 No [id number] 1{lozen ge} Take 1 Lozenge by mouth every 4 (four) hours as needed for Sore throat. [facility] budesonide- formoteroL 80-4.5 mcg/actuati on inhaler 11-11 00:00: 00 11-28 00:00 :00 No [id number] 2{puff} Inhale 2 Puffs in the morning and 2 Puffs in the evening. [facility] sodium chloride 1 gram tablet 2022-0 11-11 00:00: 00 11-22 05:59 :00 No [id number] 1g Take 1 tablet by mouth in the morning and 1 tablet at noon and 1 tablet in the evening. Take with meals. Do all this for 10 days. [facility] sodium chloride 1 gram tablet 0 11-11 00:00: 00 11-22 05:59 :00 No [id number] 1g Take 1 tablet by mouth in the morning and 1 tablet at noon and 1 tablet in the evening. Take with meals. Do all this for 10 days. [facility] sodium chloride 1 gram tablet 11-11 00:00: 00 11-22 05:59 :00 No [id number] 1g Take 1 tablet by mouth in the morning and 1 tablet at noon and 1 tablet in the evening. Take with meals. Do all this for 10 days. [facility] sodium chloride 1 gram tablet 2022-0 11-11 00:00: 00 11-22 05:59 :00 No [id number] 1g Take 1 tablet by mouth in the morning and 1 tablet at noon and 1 tablet in the evening. Take with meals. Do all this for 10 days. [facility] levoFLOXaci n 750 mg tablet 11-11 00:00: 00 11-17 05:59 :00 No [id number] 750mg Take 1 tablet by mouth every 24 (twenty-fo ur) hours for 5 days. [facility] levoFLOXaci n 750 mg tablet 2022-11-11 00:00: 00 11-17 05:59 :00 No [id number] 750mg Take 1 tablet by mouth every 24 (twenty-fo ur) hours for 5 days. [facility] predniSONE 20 mg tablet 2022-0 11-11 00:00: 00 11-15 05:59 :00 No [id number] 40mg Take 2 tablets by mouth in the morning for 3 days. [facility] predniSONE 20 mg tablet 2022-0 11-11 00:00: 11-15 05:59 :00 No [id number] 40mg Take 2 tablets by mouth in the morning for 3 days. [facility] sodium chloride tablet 1 g 11-10 23:15: 00 Yes 1g 1 g, Oral, TID MEALS, First dose on Tue11/10/22 at 1715, Until Discontinu ed, Routine [facility] benzocaine- menthoL (CEPACOL SORE THROAT (JACINTO-MEN)) lozenge 1 Lozenge 11-10 20:49: 25 Yes 1{lozen ge} 1 Lozenge, Oral, Q4HPRN, Starting on Tue11/10/22 at 1449, Until Discontinu ed, Routine, Sore throat [facility] budesonide- formoteroL (SYMBICORT) 80-4.5 mcg/actuati on inhaler 2 Puff 11-10 17:30: 00 Yes 2{puff} 2 Puff, Inhalation , BID, First dose on Tue11/10/22 at 1130, Until Discontinu ed, [facility]PRIL[facility]SEC[facility] capsule 40 mg 11-10 15:00: 00 Yes 40mg 40 mg, Oral, DAILY, First dose on Tue11/10/22 at 0900, Until Discontinu ed [facility] rivaroxaban (XARELTO) tablet 20 mg 11-10 15:00: 00 Yes 20mg 20 mg, Oral, DAILY, First dose on Tue11/10/22 at 0900, Until Discontinu ed, Routine [facility] aspirin chewable tablet 81 mg 11-10 15:00: 00 Yes 81mg 81 mg, Oral, DAILY, First dose on Tue11/10/22 at 0900, Until Discontinu ed, Routine [facility] methylPREDN ISolone sod succ (SOLU-MEDRO L (PF)) injection 40 mg 11-10 15:00: 00 11-14 14:59 :00 No 40mg 40 mg, Intravenou s, DAILY, 4 doses, First dose on Tue11/10/22 at 0900, Last dose on Tue11/13/22 at 0900, 1 mL [facility] NaCl 0.9% (NS) IV infusion 1,000 mL 11-10 09:00: 00 Yes 1000mL at 100 mL/hr, IV Infusion, CONTINUOUS , Starting on Tue11/10/22 at 0300, Until Discontinu ed, Routine [facility] levoFLOXaci n in D5W (LEVAQUIN) 750 mg/150 [...] Urine
D uration of therapy: [address] [facility] [place] [place] [facility] busPIRone (BUSPAR) tablet 30 mg 11-10 02:00: 00 Yes 30mg 30 mg, Oral, BID, First dose on Tue11/09/22 at 2000, Until Discontinu ed, Routine [facility] carvediloL (COREG) tablet 25 mg 11-09 23:00: 00 Yes 25mg 25 mg, Oral, BID MEALS, First dose on Tue11/09/22 at 1700, Until Discontinu ed, Routine [facility] ipratropium (ATROVENT) 0.02 % nebulizer solution 0.5 mg 11-09 22:00: 00 Yes .5mg 0.5 mg, Inhalation , Q4H, First dose on Tue11/09/22 at 1600, Until Discontinu ed, Routine [facility] albuterol (PROVENTIL) 2.5 mg /3 mL (0.083 [...] 1 dose, On Tue11/09/22 at 1415, STAT [facility] ondansetron (ZOFRAN (PF)) injection 4 mg 11-09 20:04: 17 Yes 4mg 4 mg, Slow IV Push, Q6HPRN, Starting on Tue11/09/22 at 1404, Until Discontinu ed, Routine, Nausea and Vomiting (N/V) [facility] acetaminoph en (TYLENOL) tablet 650 mg 11-09 20:04: 07 Yes 650mg 650 mg, Oral, Q6HPRN, Starting on Tue11/09/22 at 1404, Until Discontinu ed, Routine, Pain (scale 1-3), Temp > 38 C [facility] albuterol (PROVENTIL) 2.5 mg /3 mL (0.083 %) nebulizer solution 5 mg 11-09 14:00: 00 11-09 14:05 :00 No 5mg 5 mg, Inhalation , ONCE, 1 dose, On Tue11/09/22 at 0800, STAT [facility] albuterol (PROVENTIL) 2.5 mg /3 mL (0.083 %) nebulizer solution 10 mg 11-09 11:00: 00 11-09 11:04 :00 No 10mg 10 mg, Inhalation , ONCE, 1 dose, On Tue11/09/22 at 0500, STAT [facility] ipratropium (ATROVENT) 0.02 % nebulizer solution 0.5 mg 11-09 09:00: 00 11-09 08:59 :00 No .5mg 0.5 mg, Inhalation , ONCE, 1 dose, On Tue11/09/22 at 0300, MICHAEL [facility] albuterol (PROVENTIL) 2.5 mg /3 mL (0.083 %) nebulizer solution 2.5 mg 11-09 09:00: 00 11-09 08:59 :00 No 2.5mg 2.5 mg, Inhalation , ONCE, 1 dose, On Tue11/09/22 at 0300, STAT [facility] magnesium sulfate in water 2 gram/50 mL (4 %) infusion 2 g 11-09 08:30: 00 11-09 08:22 :00 No 2g 2 g, IV Piggyback, Administer over 60 Minutes, ONCE, 1 dose, On Tue11/09/22 at 0230, Routine [facility] methylPREDN ISolone sodium succinate (SOLU-MEDRO L) injection 125 mg 11-09 07:45: 00 11-09 07:41 :00 No 125mg 125 mg, Intravenou s, ONCE, 1 dose, On Tue11/09/22 at 0145, MICHAEL [facility] ipratropium (ATROVENT) 0.02 % nebulizer solution 0.5 mg 11-09 07:45: 00 11-09 07:40 :00 No .5mg 0.5 mg, Inhalation , ONCE, 1 dose, On Tue11/09/22 at 0145, MICHAEL [facility] albuterol (PROVENTIL) 2.5 mg /3 mL (0.083 %) nebulizer solution 2.5 mg 11-09 07:45: 00 11-09 07:40 :00 No 2.5mg 2.5 mg, Inhalation , ONCE, 1 dose, On Tue11/09/22 at 0145, STAT [facility] cephALEXin (KEFLEX) 500 mg capsule 05-22 00:00: 00 Yes [id number] 500mg Take 1 capsule by mouth 4 (four) times daily. [facility] cephALEXin (KEFLEX) 500 mg capsule 05-22 00:00: 00 Yes [id number] 500mg Take 1 capsule by mouth 4 (four) times daily. [facility] cephALEXin (KEFLEX) 500 mg capsule 05-22 00:00: 00 11-11 00:00 :00 No [id number] 500mg Take 1 capsule by mouth 4 (four) times daily. [facility] cefTRIAXone (ROCEPHIN) 1,000 mg in NaCl 0.9% (NS) 50 mL MINI-BAG 12-12 19:00: 00 12-12 18:23 :00 No 1000mg 1,000 mg, IV Piggyback, ONCE, 1 dose, Tue12/12/20 at 1400, 50 mL
Reas on for Anti-Infec tive: Empiric Therapy for Suspected Infection< br>Empiric Therapy Site: Urine
D uration of therapy: 72 hours [facility] carvediloL 25 mg tablet 12-12 18:38: 04 Yes 25mg Take 25 mg by mouth 2 (two) times daily with meals. [facility] busPIRone 30 mg tablet 12-12 18:38: 04 Yes 30mg Take 30 mg by mouth 2 (two) times daily. [facility] benazepriL 10 mg tablet 12-12 18:38: 04 Yes 10mg Take 10 mg by mouth daily. [facility] hydroCHLORO thiazide 25 mg tablet 12-12 18:38: 04 Yes 25mg Take 25 mg by mouth daily. [facility] carvediloL 25 mg tablet 12-12 18:38: 04 Yes 25mg Take 25 mg by mouth 2 (two) times daily with meals. [facility] busPIRone 30 mg tablet 12-12 18:38: 04 Yes 30mg Take 30 mg by mouth 2 (two) times daily. [facility] benazepriL 10 mg tablet 12-12 18:38: 04 Yes 10mg Take 10 mg by mouth daily. [facility] hydroCHLORO thiazide 25 mg tablet 12-12 18:38: 04 Yes 25mg Take 25 mg by mouth daily. [facility] carvediloL 25 mg tablet 12-12 18:38: 04 Yes 25mg Take 25 mg by mouth 2 (two) times daily with meals. [facility] busPIRone 30 mg tablet 12-12 18:38: 04 Yes 30mg Take 30 mg by mouth 2 (two) times daily. [facility] benazepriL 10 mg tablet 12-12 18:38: 04 Yes 10mg Take 10 mg by mouth daily. [facility] hydroCHLORO thiazide 25 mg tablet 12-12 18:38: 04 Yes 25mg Take 25 mg by mouth daily. [facility] carvediloL 25 mg tablet 12-12 18:38: 04 Yes 25mg Take 25 mg by mouth 2 (two) times daily with meals. [facility] busPIRone 30 mg tablet 12-12 18:38: 04 Yes 30mg Take 30 mg by mouth 2 (two) times daily. [facility] benazepriL 10 mg tablet 12-12 18:38: 04 Yes 10mg Take 10 mg by mouth daily. [facility] hydroCHLORO thiazide 25 mg tablet 12-12 18:38: 04 Yes 25mg Take 25 mg by mouth daily. [facility] carvediloL 25 mg tablet 12-12 18:38: 04 Yes 25mg Take 25 mg by mouth 2 (two) times daily with meals. [facility] busPIRone 30 mg tablet 12-12 18:38: 04 Yes 30mg Take 30 mg by mouth 2 (two) times daily. [facility] benazepriL 10 mg tablet 12-12 18:38: 04 Yes 10mg Take 10 mg by mouth daily. [facility] hydroCHLORO thiazide 25 mg tablet 12-12 18:38: 04 Yes 25mg Take 25 mg by mouth daily. [facility] carvediloL 25 mg tablet 12-12 18:38: 04 Yes 25mg Take 25 mg by mouth 2 (two) times daily with meals. [facility] busPIRone 30 mg tablet 12-12 18:38: 04 Yes 30mg Take 30 mg by mouth 2 (two) times daily. [facility] benazepriL 10 mg tablet 12-12 18:38: 04 Yes 10mg Take 10 mg by mouth daily. [facility] hydroCHLORO thiazide 25 mg tablet 12-12 18:38: 04 Yes 25mg Take 25 mg by mouth daily. [facility] carvediloL 25 mg tablet 12-12 18:38: 04 Yes 25mg Take 25 mg by mouth 2 (two) times daily with meals. [facility] busPIRone 30 mg tablet 12-12 18:38: 04 Yes 30mg Take 30 mg by mouth 2 (two) times daily. [facility] benazepriL 10 mg tablet 12-12 18:38: 04 Yes 10mg Take 10 mg by mouth daily. [facility] hydroCHLORO thiazide 25 mg tablet 12-12 18:38: 04 Yes 25mg Take 25 mg by mouth daily. [facility] carvediloL 25 mg tablet 12-12 18:38: 04 Yes 25mg Take 25 mg by mouth 2 (two) times daily with meals. [facility] busPIRone 30 mg tablet 12-12 18:38: 04 Yes 30mg Take 30 mg by mouth 2 (two) times daily. [facility] benazepriL 10 mg tablet 12-12 18:38: 04 Yes 10mg Take 10 mg by mouth daily. [facility] hydroCHLORO thiazide 25 mg tablet 12-12 18:38: 04 Yes 25mg Take 25 mg by mouth daily. [facility] carvediloL 25 mg tablet 12-12 18:38: 04 Yes 25mg Take 25 mg by mouth 2 (two) times daily with meals. [facility] busPIRone 30 mg tablet 12-12 18:38: 04 Yes 30mg Take 30 mg by mouth 2 (two) times daily. [facility] benazepriL 10 mg tablet 12-12 18:38: 04 Yes 10mg Take 10 mg by mouth daily. [facility] hydroCHLORO thiazide 25 mg tablet 12-12 18:38: 04 Yes 25mg Take 25 mg by mouth daily. [facility] carvediloL 25 mg tablet 12-12 18:38: 04 Yes 25mg Take 25 mg by mouth 2 (two) times daily with meals. [facility] busPIRone 30 mg tablet 12-12 18:38: 04 Yes 30mg Take 30 mg by mouth 2 (two) times daily. [facility] benazepriL 10 mg tablet 12-12 18:38: 04 Yes 10mg Take 10 mg by mouth daily. [facility] hydroCHLORO thiazide 25 mg tablet 12-12 18:38: 04 Yes 25mg Take 25 mg by mouth daily. [facility] carvediloL 25 mg tablet 12-12 18:38: 04 Yes 25mg Take 25 mg by mouth 2 (two) times daily with meals. [facility] busPIRone 30 mg tablet 12-12 18:38: 04 Yes 30mg Take 30 mg by mouth 2 (two) times daily. [facility] benazepriL 10 mg tablet 12-12 18:38: 04 Yes 10mg Take 10 mg by mouth daily. [facility] hydroCHLORO thiazide 25 mg tablet 12-12 18:38: 04 Yes 25mg Take 25 mg by mouth daily. [facility] carvediloL 25 mg tablet 12-12 18:38: 04 Yes 25mg Take 25 mg by mouth 2 (two) times daily with meals. [facility] busPIRone 30 mg tablet 12-12 18:38: 04 Yes 30mg Take 30 mg by mouth 2 (two) times daily. [facility] benazepriL 10 mg tablet 12-12 18:38: 04 Yes 10mg Take 10 mg by mouth daily. [facility] hydroCHLORO thiazide 25 mg tablet 12-12 18:38: 04 Yes 25mg Take 25 mg by mouth daily. [facility] carvediloL 25 mg tablet 12-12 18:38: 04 Yes 25mg Take 25 mg by mouth 2 (two) times daily with meals. [facility] busPIRone 30 mg tablet 12-12 18:38: 04 Yes 30mg Take 30 mg by mouth 2 (two) times daily. [facility] benazepriL 10 mg tablet 12-12 18:38: 04 Yes 10mg Take 10 mg by mouth daily. [facility] hydroCHLORO thiazide 25 mg tablet 12-12 18:38: 04 Yes 25mg Take 25 mg by mouth daily. [facility] carvediloL 25 mg tablet 12-12 18:38: 04 Yes 25mg Take 25 mg by mouth 2 (two) times daily with meals. [facility] busPIRone 30 mg tablet 12-12 18:38: 04 Yes 30mg Take 30 mg by mouth 2 (two) times daily. [facility] benazepriL 10 mg tablet 12-12 18:38: 04 Yes 10mg Take 10 mg by mouth daily. [facility] hydroCHLORO thiazide 25 mg tablet 12-12 18:38: 04 Yes 25mg Take 25 mg by mouth daily. [facility] carvediloL 25 mg tablet 12-12 18:38: 04 Yes 25mg Take 25 mg by mouth 2 (two) times daily with meals. [facility] busPIRone 30 mg tablet 12-12 18:38: 04 Yes 30mg Take 30 mg by mouth 2 (two) times daily. [facility] benazepriL 10 mg tablet 12-12 18:38: 04 Yes 10mg Take 10 mg by mouth daily. [facility] hydroCHLORO thiazide 25 mg tablet 12-12 18:38: 04 Yes 25mg Take 25 mg by mouth daily. [facility] iohexol (OMNIPAQUE 350 BULK-150 mL) injection 120 mL 12-12 17:30: 00 12-12 17:21 :00 No [id number] 120mL 120 mL, Intravenou s, ONCE, 1 dose, Tue12/12/20 at 1230, Routine [facility] aspirin 81 mg EC tablet 12-12 16:57: 40 12-12 00:00 :00 No 81mg Take 81 mg by mouth daily. [facility] varenicline (CHANTIX) 1 mg tablet 12-12 16:57: 18 12-12 00:00 :00 No 1mg Take 1 mg by mouth 2 (two) times daily. [facility] predniSONE 20 mg tablet 12-12 16:57: 12 12-12 00:00 :00 No 20mg Take 20 mg by mouth daily. [facility] fluticasone -umeclidin- vilanter (TRELEGY ELLIPTA) 100-62.5-25 mcg DsDv 12-12 16:56: 46 12-12 00:00 :00 No 1{puff} Inhale 1 Puff daily. [facility] cefpodoxime 100 mg tablet 12-12 00:00: 00 Yes [id number] 100mg Take 1 tablet by mouth 2 (two) times daily. [facility] cefpodoxime 100 mg tablet 12-12 00:00: 00 Yes [id number] 100mg Take 1 tablet by mouth 2 (two) times daily. [facility] cefpodoxime 100 mg tablet 12-12 00:00: 00 Yes [id number] 100mg Take 1 tablet by mouth 2 (two) times daily. [facility] cefpodoxime 100 mg tablet 12-12 00:00: 00 Yes [id number] 100mg Take 1 tablet by mouth 2 (two) times daily. [facility] cefpodoxime 100 mg tablet 12-12 00:00: 00 Yes [id number] 100mg Take 1 tablet by mouth 2 (two) times daily. [facility] cefpodoxime 100 mg tablet 2020-0 12-12 00:00: 00 Yes [id number] 100mg Take 1 tablet by mouth 2 (two) times daily. [facility] cefpodoxime 100 mg tablet 2020-0 12-12 00:00: 00 Yes [id number] 100mg Take 1 tablet by mouth 2 (two) times daily. [facility] cefpodoxime 100 mg tablet 2020-0 12-12 00:00: 00 Yes [id number] 100mg Take 1 tablet by mouth 2 (two) times daily. [facility] cefpodoxime 100 mg tablet 2020-0 12-12 00:00: 00 Yes [id number] 100mg Take 1 tablet by mouth 2 (two) times daily. [facility] cefpodoxime 100 mg tablet 2020-0 12-12 00:00: 00 Yes [id number] 100mg Take 1 tablet by mouth 2 (two) times daily. [facility] cefpodoxime 100 mg tablet 2020-0 12-12 00:00: 00 Yes [id number] 100mg Take 1 tablet by mouth 2 (two) times daily. [facility] cefpodoxime 100 mg tablet 2020-0 12-12 00:00: 00 Yes [id number] 100mg Take 1 tablet by mouth 2 (two) times daily. [facility] cefpodoxime 100 mg tablet 2020-0 12-12 00:00: 00 Yes [id number] 100mg Take 1 tablet by mouth 2 (two) times daily. [facility] cefpodoxime 100 mg tablet 2020-0 12-12 00:00: 00 Yes [id number] 100mg Take 1 tablet by mouth 2 (two) times daily. [facility] cefpodoxime 100 mg tablet 2020-0 12-12 00:00: 00 Yes [id number] 100mg Take 1 tablet by mouth 2 (two) times daily. [facility] cefpodoxime 100 mg tablet 2020-0 12-12 00:00: 00 20211-11 00:00 :00 No [id number] 100mg Take 1 tablet by mouth 2 (two) times daily. [facility] cefpodoxime 100 mg tablet 12-12 00:00: 00 12-12 00:00 :00 No [id number] 100mg Take 1 tablet by mouth 2 (two) times daily for 7 days. [facility] XARELTO 15 mg tablet 10-16 00:00: 00 Yes [facility] XARELTO 15 mg tablet 10-16 00:00: 00 Yes [facility] XARELTO 15 mg tablet 10-16 00:00: 00 Yes [facility] XARELTO 15 mg tablet 10-16 00:00: 00 Yes [facility] XARELTO 15 mg tablet 10-16 00:00: 00 Yes [facility] XARELTO 15 mg tablet 10-16 00:00: 00 Yes [facility] XARELTO 15 mg tablet 10-16 00:00: 00 Yes [facility] XARELTO 15 mg tablet 10-16 00:00: 00 Yes [facility] XARELTO 15 mg tablet 10-16 00:00: 00 Yes [facility] XARELTO 15 mg tablet 10-16 00:00: 00 Yes [facility] XARELTO 15 mg tablet 10-16 00:00: 00 Yes [facility] XARELTO 15 mg tablet 10-16 00:00: 00 Yes [facility] XARELTO 15 mg tablet 10-16 00:00: 00 Yes [facility] XARELTO 15 mg tablet 10-16 00:00: 00 Yes [facility] XARELTO 15 mg tablet 10-16 00:00: 00 Yes [facility] XARELTO 15 mg tablet 10-16 00:00: 00 Yes [facility] XARELTO 15 mg tablet 10-16 00:00: 00 Yes [facility] XARELTO 15 mg tablet 10-16 00:00: 00 Yes [facility] XARELTO 15 mg tablet 10-16 00:00: 00 Yes [facility] XARELTO 15 mg tablet 10-16 00:00: 00 Yes [facility] XARELTO 15 mg tablet 10-16 00:00: 00 Yes [facility] XARELTO 15 mg tablet 10-16 00:00: 00 Yes [facility] XARELTO 15 mg tablet 10-16 00:00: 00 Yes [facility] XARELTO 15 mg tablet 10-16 00:00: 00 11-28 00:00 :00 No [facility] omeprazole 40 mg capsule 2018-09 00:11: 42 Yes 40mg Take 40 mg by mouth daily. [facility] omeprazole 40 mg capsule 2018-09 00:11: 42 Yes 40mg Take 40 mg by mouth daily. [facility] varenicline (CHANTIX) 1 mg tablet 2018-09 00:11: 42 Yes 1mg Take 1 mg by mouth 2 (two) times daily. [facility] predniSONE 20 mg tablet 2018-09 00:11: 42 Yes 20mg Take 20 mg by mouth daily. [facility] omeprazole 40 mg capsule 2018-09 00:11: 42 Yes 40mg Take 40 mg by mouth daily. [facility] fluticasone -umeclidin- vilanter (TRELEGY ELLIPTA) 100-62.5-25 mcg DsDv 2018-09 00:11: 42 Yes 1{puff} Inhale 1 Puff daily. [facility] aspirin 81 mg EC tablet 2018-09 00:11: 42 Yes 81mg Take 81 mg by mouth daily. [facility] varenicline (CHANTIX) 1 mg tablet 2018-09 00:11: 42 Yes 1mg Take 1 mg by mouth 2 (two) times daily. [facility] predniSONE 20 mg tablet 2018-09 00:11: 42 Yes 20mg Take 20 mg by mouth daily. [facility] omeprazole 40 mg capsule 2018-09 00:11: 42 Yes 40mg Take 40 mg by mouth daily. [facility] fluticasone -umeclidin- vilanter (TRELEGY ELLIPTA) 100-62.5-25 mcg DsDv 2018-09 00:11: 42 Yes 1{puff} Inhale 1 Puff daily. [facility] aspirin 81 mg EC tablet 2018-09 00:11: 42 Yes 81mg Take 81 mg by mouth daily. [facility] varenicline (CHANTIX) 1 mg tablet 2018-09 00:11: 42 Yes 1mg Take 1 mg by mouth 2 (two) times daily. [facility] predniSONE 20 mg tablet 2018-09 00:11: 42 Yes 20mg Take 20 mg by mouth daily. [facility] omeprazole 40 mg capsule 2018-09 00:11: 42 Yes 40mg Take 40 mg by mouth daily. [facility] fluticasone -umeclidin- vilanter (TRELEGY ELLIPTA) 100-62.5-25 mcg DsDv 2018-09 00:11: 42 Yes 1{puff} Inhale 1 Puff daily. [facility] aspirin 81 mg EC tablet 2018-09 00:11: 42 Yes 81mg Take 81 mg by mouth daily. [facility] varenicline (CHANTIX) 1 mg tablet 2018-09 00:11: 42 Yes 1mg Take 1 mg by mouth 2 (two) times daily. [facility] predniSONE 20 mg tablet 2018-09 00:11: 42 Yes 20mg Take 20 mg by mouth daily. [facility] omeprazole 40 mg capsule 2018-09 00:11: 42 Yes 40mg Take 40 mg by mouth daily. [facility] fluticasone -umeclidin- vilanter (TRELEGY ELLIPTA) 100-62.5-25 mcg DsDv 2018-09 00:11: 42 Yes 1{puff} Inhale 1 Puff daily. [facility] aspirin 81 mg EC tablet 2018-09 00:11: 42 Yes 81mg Take 81 mg by mouth daily. [facility] varenicline (CHANTIX) 1 mg tablet 2018-09 00:11: 42 Yes 1mg Take 1 mg by mouth 2 (two) times daily. [facility] predniSONE 20 mg tablet 2018-09 00:11: 42 Yes 20mg Take 20 mg by mouth daily. [facility] omeprazole 40 mg capsule 2018-09 00:11: 42 Yes 40mg Take 40 mg by mouth daily. [facility] fluticasone -umeclidin- vilanter (TRELEGY ELLIPTA) 100-62.5-25 mcg DsDv 2018-09 00:11: 42 Yes 1{puff} Inhale 1 Puff daily. [facility] aspirin 81 mg EC tablet 2018-09 00:11: 42 Yes 81mg Take 81 mg by mouth daily. [facility] varenicline (CHANTIX) 1 mg tablet 2018-09 00:11: 42 Yes 1mg Take 1 mg by mouth 2 (two) times daily. [facility] predniSONE 20 mg tablet 2018-09 00:11: 42 Yes 20mg Take 20 mg by mouth daily. [facility] omeprazole 40 mg capsule 2018-09 00:11: 42 Yes 40mg Take 40 mg by mouth daily. [facility] fluticasone -umeclidin- vilanter (TRELEGY ELLIPTA) 100-62.5-25 mcg DsDv 2018-09 00:11: 42 Yes 1{puff} Inhale 1 Puff daily. [facility] aspirin 81 mg EC tablet 2018-09 00:11: 42 Yes 81mg Take 81 mg by mouth daily. [facility] omeprazole 40 mg capsule 2018-09 00:11: 42 Yes 40mg Take 40 mg by mouth daily. [facility] omeprazole 40 mg capsule 2018-09 00:11: 42 Yes 40mg Take 40 mg by mouth daily. [facility] omeprazole 40 mg capsule 2018-09 00:11: 42 Yes 40mg Take 40 mg by mouth daily. [facility] omeprazole 40 mg capsule 2018-09 00:11: 42 Yes 40mg Take 40 mg by mouth daily. [facility] omeprazole 40 mg capsule 2018-09 00:11: 42 Yes 40mg Take 40 mg by mouth daily. [facility] omeprazole 40 mg capsule 2018-09 00:11: 42 Yes 40mg Take 40 mg by mouth daily. [facility] omeprazole 40 mg capsule 2018-09 00:11: 42 Yes 40mg Take 40 mg by mouth daily. [facility] omeprazole 40 mg capsule 2018-09 00:11: 42 Yes 40mg Take 40 mg by mouth daily. [facility] omeprazole 40 mg capsule 2018-09 00:11: 42 Yes 40mg Take 40 mg by mouth daily. [facility] omeprazole 40 mg capsule 2018-09 00:11: 42 Yes 40mg Take 40 mg by mouth daily. [facility] omeprazole 40 mg capsule 2018-09 00:11: 42 Yes 40mg Take 40 mg by mouth daily. [facility] omeprazole 40 mg capsule 2018-09 00:11: 42 Yes 40mg Take 40 mg by mouth daily. [facility] omeprazole 40 mg capsule 2018-09 00:11: 42 Yes 40mg Take 40 mg by mouth daily. [facility] KCL 20 mEq tablet 2018-09 00:00: 00 Yes [id number] 40meq Take 2 tablets by mouth daily. [facility] KCL 20 mEq tablet 2018-09 00:00: 00 Yes [id number] 40meq Take 2 tablets by mouth daily. [facility] atorvastati n 20 mg tablet 2018-09 00:00: 00 Yes [id number] 20mg Take 1 tablet by mouth at bedtime. [facility] metoprolol succinate XL 50 mg 24 hr tablet 2018-09 00:00: 00 Yes [id number] 50mg Take 1 tablet by mouth 2 (two) times daily. [facility] furosemide 40 mg tablet 2018-09 00:00: 00 Yes [id number] 40mg Take 1 tablet by mouth every morning and evening. [facility] KCL 20 mEq tablet 2018-09 00:00: 00 Yes [id number] 40meq Take 2 tablets by mouth daily. [facility] atorvastati n 20 mg tablet 2018-09 00:00: 00 Yes [id number] 20mg Take 1 tablet by mouth at bedtime. [facility] metoprolol succinate XL 50 mg 24 hr tablet 2018-09 00:00: 00 Yes [id number] 50mg Take 1 tablet by mouth 2 (two) times daily. [facility] furosemide 40 mg tablet 2018-09 00:00: 00 Yes [id number] 40mg Take 1 tablet by mouth every morning and evening. [facility] KCL 20 mEq tablet 2018-09 00:00: 00 Yes [id number] 40meq Take 2 tablets by mouth daily. [facility] atorvastati n 20 mg tablet 2018-09 00:00: 00 Yes [id number] 20mg Take 1 tablet by mouth at bedtime. [facility] metoprolol succinate XL 50 mg 24 hr tablet 2018-09 00:00: 00 Yes [id number] 50mg Take 1 tablet by mouth 2 (two) times daily. [facility] furosemide 40 mg tablet 2018-09 00:00: 00 Yes [id number] 40mg Take 1 tablet by mouth every morning and evening. [facility] KCL 20 mEq tablet 2018-09 00:00: 00 Yes [id number] 40meq Take 2 tablets by mouth daily. [facility] atorvastati n 20 mg tablet 2018-09 00:00: 00 Yes [id number] 20mg Take 1 tablet by mouth at bedtime. [facility] metoprolol succinate XL 50 mg 24 hr tablet 2018-09 00:00: 00 Yes [id number] 50mg Take 1 tablet by mouth 2 (two) times daily. [facility] furosemide 40 mg tablet 2018-09 00:00: 00 Yes [id number] 40mg Take 1 tablet by mouth every morning and evening. [facility] KCL 20 mEq tablet 2018-09 00:00: 00 Yes [id number] 40meq Take 2 tablets by mouth daily. [facility] atorvastati n 20 mg tablet 2018-09 00:00: 00 Yes [id number] 20mg Take 1 tablet by mouth at bedtime. [facility] metoprolol succinate XL 50 mg 24 hr tablet 2018-09 00:00: 00 Yes [id number] 50mg Take 1 tablet by mouth 2 (two) times daily. [facility] furosemide 40 mg tablet 2018-09 00:00: 00 Yes [id number] 40mg Take 1 tablet by mouth every morning and evening. [facility] KCL 20 mEq tablet 2018-09 00:00: 00 Yes [id number] 40meq Take 2 tablets by mouth daily. [facility] atorvastati n 20 mg tablet 2018-09 00:00: 00 Yes [id number] 20mg Take 1 tablet by mouth at bedtime. [facility] metoprolol succinate XL 50 mg 24 hr tablet 2018-09 00:00: 00 Yes [id number] 50mg Take 1 tablet by mouth 2 (two) times daily. [facility] furosemide 40 mg tablet 2018-09 00:00: 00 Yes [id number] 40mg Take 1 tablet by mouth every morning and evening. [facility] KCL 20 mEq tablet 2018-09 00:00: 00 Yes [id number] 40meq Take 2 tablets by mouth daily. [facility] KCL 20 mEq tablet 2018-09 00:00: 00 Yes [id number] 40meq Take 2 tablets by mouth daily. [facility] KCL 20 mEq tablet 2018-09 00:00: 00 Yes [id number] 40meq Take 2 tablets by mouth daily. [facility] KCL 20 mEq tablet 2018-09 00:00: 00 Yes [id number] 40meq Take 2 tablets by mouth daily. [facility] KCL 20 mEq tablet 2018-09 00:00: 00 Yes [id number] 40meq Take 2 tablets by mouth daily. [facility] KCL 20 mEq tablet 2018-09 00:00: 00 Yes [id number] 40meq Take 2 tablets by mouth daily. [facility] KCL 20 mEq tablet 2018-09 00:00: 00 Yes [id number] 40meq Take 2 tablets by mouth daily. [facility] KCL 20 mEq tablet 2018-09 00:00: 00 Yes [id number] 40meq Take 2 tablets by mouth daily. [facility] KCL 20 mEq tablet 2018-09 00:00: 00 Yes [id number] 40meq Take 2 tablets by mouth daily. [facility] KCL 20 mEq tablet 2018-09 00:00: 00 Yes [id number] 40meq Take 2 tablets by mouth daily. [facility] KCL 20 mEq tablet 2018-09 00:00: 00 Yes [id number] 40meq Take 2 tablets by mouth daily. [facility] KCL 20 mEq tablet 2018-09 00:00: 00 Yes [id number] 40meq Take 2 tablets by mouth daily. [facility] KCL 20 mEq tablet 2018-09 00:00: 00 Yes [id number] 40meq Take 2 tablets by mouth daily. [facility] KCL 20 mEq tablet 2018-09 00:00: 00 Yes [id number] 40meq Take 2 tablets by mouth daily. [facility] KCL 20 mEq tablet 2018-09 00:00: 00 Yes [id number] 40meq Take 2 tablets by mouth daily. [facility] KCL 20 mEq tablet 2018-09 00:00: 00 Yes [id number] 40meq Take 2 tablets by mouth daily. [facility] KCL 20 mEq tablet 2018-09 00:00: 00 Yes [id number] 40meq Take 2 tablets by mouth daily. [facility] KCL 20 mEq tablet 2018-09 00:00: 00 Yes [id number] 40meq Take 2 tablets by mouth daily. [facility] KCL 20 mEq tablet 2018-09 00:00: 00 Yes [id number] 40meq Take 2 tablets by mouth daily. [facility] KCL 20 mEq tablet 2018-09 00:00: 00 11-28 00:00 :00 No [id number] 40meq Take 2 tablets by mouth daily. [facility] atorvastati n 20 mg tablet 2018-09 00:00: 00 12-12 00:00 :00 No [id number] 20mg Take 1 tablet by mouth at bedtime. [facility] metoprolol succinate XL 50 mg 24 hr tablet 2018-09 00:00: 00 12-12 00:00 :00 No [id number] 50mg Take 1 tablet by mouth 2 (two) times daily. [facility] furosemide 40 mg tablet 2018-09 00:00: 00 12-12 00:00 :00 No [id number] 40mg Take 1 tablet by mouth every morning and evening. [facility] ipratropium -albuterol (DUONEB) 0.5 mg-3 mg(2.5 mg base)/3 mL nebulizer solution 3 mL 05-04 13:00: 00 Yes 3mL 3 mL, Inhalation , QID, First dose on Tue05/04/19 at 0800, Until Discontinu ed, Routine [facility] ibuprofen 600 mg tablet 02-16 00:00: 00 Yes [id number] 600mg Take 1 tablet by mouth every 8 (eight) hours as needed (PAIN). [facility] ibuprofen 600 mg tablet 02-16 00:00: 00 Yes [id number] 600mg Take 1 tablet by mouth every 8 (eight) hours as needed (pain). [facility] ibuprofen 600 mg tablet 02-16 00:00: 00 05-03 00:00 :00 No [id number] 600mg Take 1 tablet by mouth every 8 (eight) hours as needed (PAIN). [facility] ibuprofen 600 mg tablet 02-16 00:00: 05-03 00:00 :00 No [id number] 600mg Take 1 tablet by mouth every 8 (eight) hours as needed (pain). [facility] magnesium oxide (MAG-OX 400) 400 mg tablet 11-11 00:00: 00 Yes 400mg Take 1 Tab by mouth 3 (three) times daily. [facility] enalapril (VASOTEC) 2.5 mg tablet 11-11 00:00: 00 Yes [id number] 2.5mg Take 1 Tab by mouth 2 (two) times daily. [facility] pantoprazol e (PROTONIX) 40 mg EC tablet 11-11 00:00: 00 Yes 40mg Take 1 Tab by mouth daily. [facility] KCL (KLOR-CON M20) 20 mEq tablet 11-11 00:00: 00 Yes 20meq Take 1 Tab by mouth daily. [facility] furosemide (LASIX) 40 mg tablet 11-11 00:00: 00 Yes [id number] 40mg Take 1 Tab by mouth 2 (two) times daily. [facility] metoprolol succinate XL (TOPROL XL) 100 mg 24 hr tablet 11-11 00:00: 00 Yes 100mg Take 1 Tab by mouth daily. [facility] magnesium oxide (MAG-OX 400) 400 mg tablet 11-11 00:00: 00 05-03 00:00 :00 No 400mg Take 1 Tab by mouth 3 (three) times daily. [facility] enalapril (VASOTEC) 2.5 mg tablet 11-11 00:00: 05-03 00:00 :00 No [id number] 2.5mg Take 1 Tab by mouth 2 (two) times daily. [facility] pantoprazol e (PROTONIX) 40 mg EC tablet 11-11 00:00: 00 05-03 00:00 :00 No 40mg Take 1 Tab by mouth daily. [facility] KCL (KLOR-CON M20) 20 mEq tablet 11-11 00:00: 00 05-03 00:00 :00 No 20meq Take 1 Tab by mouth daily. [facility] furosemide (LASIX) 40 mg tablet 11-11 00:00: 00 05-03 00:00 :00 No [id number] 40mg Take 1 Tab by mouth 2 (two) times daily. [facility] metoprolol succinate XL (TOPROL XL) 100 mg 24 hr tablet 11-11 00:00: 00 05-03 00:00 :00 No 100mg Take 1 Tab by mouth daily. [facility] aspirin 81 mg chewable tablet 2013-09 00:00: 00 Yes 81mg Take 1 Tab by mouth daily. [facility] ipratropium (ATROVENT) 0.02 % nebulizer solution 2013-09 00:00: 00 Yes .5mg Inhale 2.5 mL 4 (four) times daily. [facility] levalbutero l (XOPENEX) 0.31 mg/3 mL nebulizer solution 2013-09 00:00: 00 Yes .31mg Inhale 0.31 mg 3 (three) times daily. [facility] aspirin 81 mg chewable tablet 2013-09 00:00: 00 Yes 81mg Take 1 Tab by mouth daily. [facility] ipratropium (ATROVENT) 0.02 % nebulizer solution 2013-09 00:00: 00 Yes .5mg Inhale 2.5 mL 4 (four) times daily. [facility] levalbutero l (XOPENEX) 0.31 mg/3 mL nebulizer solution 2013-09 00:00: 00 Yes .31mg Inhale 0.31 mg 3 (three) times daily. [facility] aspirin 81 mg chewable tablet 2013-09 00:00: 00 Yes 81mg Take 1 Tab by mouth daily. [facility] ipratropium (ATROVENT) 0.02 % nebulizer solution 2013-09 00:00: 00 Yes .5mg Inhale 2.5 mL 4 (four) times daily. [facility] levalbutero l (XOPENEX) 0.31 mg/3 mL nebulizer solution 2013-09 00:00: 00 Yes .31mg Inhale 0.31 mg 3 (three) times daily. [facility] aspirin 81 mg chewable tablet 2013-09 00:00: 00 Yes 81mg Take 1 Tab by mouth daily. [facility] ipratropium (ATROVENT) 0.02 % nebulizer solution 2013-09 00:00: 00 Yes .5mg Inhale 2.5 mL 4 (four) times daily. [facility] levalbutero l (XOPENEX) 0.31 mg/3 mL nebulizer solution 2013-09 00:00: 00 Yes .31mg Inhale 0.31 mg 3 (three) times daily. [facility] aspirin 81 mg chewable tablet 2013-09 00:00: 00 Yes 81mg Take 1 Tab by mouth daily. [facility] ipratropium (ATROVENT) 0.02 % nebulizer solution 2013-09 00:00: 00 Yes .5mg Inhale 2.5 mL 4 (four) times daily. [facility] levalbutero l (XOPENEX) 0.31 mg/3 mL nebulizer solution 2013-09 00:00: 00 Yes .31mg Inhale 0.31 mg 3 (three) times daily. [facility] aspirin 81 mg chewable tablet 2013-09 00:00: 00 Yes 81mg Take 1 Tab by mouth daily. [facility] ipratropium (ATROVENT) 0.02 % nebulizer solution 2013-09 00:00: 00 Yes .5mg Inhale 2.5 mL 4 (four) times daily. [facility] levalbutero l (XOPENEX) 0.31 mg/3 mL nebulizer solution 2013-09 00:00: 00 Yes .31mg Inhale 0.31 mg 3 (three) times daily. [facility] aspirin 81 mg chewable tablet 2013-09 00:00: 00 Yes 81mg Take 1 Tab by mouth daily. [facility] ipratropium (ATROVENT) 0.02 % nebulizer solution 2013-09 00:00: 00 Yes .5mg Inhale 2.5 mL 4 (four) times daily. [facility] levalbutero l (XOPENEX) 0.31 mg/3 mL nebulizer solution 2013-09 00:00: 00 Yes .31mg Inhale 0.31 mg 3 (three) times daily. [facility] aspirin 81 mg chewable tablet 2013-09 00:00: 00 Yes 81mg Take 1 Tab by mouth daily. [facility] ipratropium (ATROVENT) 0.02 % nebulizer solution 2013-09 00:00: 00 Yes .5mg Inhale 2.5 mL 4 (four) times daily. [facility] levalbutero l (XOPENEX) 0.31 mg/3 mL nebulizer solution 2013-09 00:00: 00 Yes .31mg Inhale 0.31 mg 3 (three) times daily. [facility] aspirin 81 mg chewable tablet 2013-09 00:00: 00 Yes 81mg Take 1 Tab by mouth daily. [facility] ipratropium (ATROVENT) 0.02 % nebulizer solution 2013-09 00:00: 00 Yes .5mg Inhale 2.5 mL 4 (four) times daily. [facility] (XOPENEX) 0.31 mg/3 mL nebulizer solution 2013-09 00:00: 00 Yes .31mg Inhale 0.31 mg 3 (three) times daily. [facility] aspirin 81 mg chewable tablet 2013-09 00:00: 00 Yes 81mg Take 1 Tab by mouth daily. [facility] ipratropium (ATROVENT) 0.02 % nebulizer solution 2013-09 00:00: 00 Yes .5mg Inhale 2.5 mL 4 (four) times daily. [facility] levalbutero l (XOPENEX) 0.31 mg/3 mL nebulizer solution 2013-09 00:00: 00 Yes .31mg Inhale 0.31 mg 3 (three) times daily. [facility] aspirin 81 mg chewable tablet 2013-09 00:00: 00 Yes 81mg Take 1 Tab by mouth daily. [facility] ipratropium (ATROVENT) 0.02 % nebulizer solution 2013-09 00:00: 00 Yes .5mg Inhale 2.5 mL 4 (four) times daily. [facility] levalbutero l (XOPENEX) 0.31 mg/3 mL nebulizer solution 2013-09 00:00: 00 Yes .31mg Inhale 0.31 mg 3 (three) times daily. [facility] aspirin 81 mg chewable tablet 2013-09 00:00: 00 Yes 81mg Take 1 Tab by mouth daily. [facility] ipratropium (ATROVENT) 0.02 % nebulizer solution 2013-09 00:00: 00 Yes .5mg Inhale 2.5 mL 4 (four) times daily. [facility] levalbutero l (XOPENEX) 0.31 mg/3 mL nebulizer solution 2013-09 00:00: 00 Yes .31mg Inhale 0.31 mg 3 (three) times daily. [facility] aspirin 81 mg chewable tablet 2013-09 00:00: 00 Yes 81mg Take 1 Tab by mouth daily. [facility] ipratropium (ATROVENT) 0.02 % nebulizer solution 2013-09 00:00: 00 Yes .5mg Inhale 2.5 mL 4 (four) times daily. [facility] levalbutero l (XOPENEX) 0.31 mg/3 mL nebulizer solution 2013-09 00:00: 00 Yes .31mg Inhale 0.31 mg 3 (three) times daily. [facility] aspirin 81 mg chewable tablet 2013-09 00:00: 00 Yes 81mg Take 1 Tab by mouth daily. [facility] ipratropium (ATROVENT) 0.02 % nebulizer solution 2013-09 00:00: 00 Yes .5mg Inhale 2.5 mL 4 (four) times daily. [facility] levalbutero l (XOPENEX) 0.31 mg/3 mL nebulizer solution 2013-09 00:00: 00 Yes .31mg Inhale 0.31 mg 3 (three) times daily. [facility] aspirin 81 mg chewable tablet 2013-09 00:00: 00 Yes 81mg Take 1 Tab by mouth daily. [facility] ipratropium (ATROVENT) 0.02 % nebulizer solution 2013-09 00:00: 00 Yes .5mg Inhale 2.5 mL 4 (four) times daily. [facility] levalbutero l (XOPENEX) 0.31 mg/3 mL nebulizer solution 2013-09 00:00: 00 Yes .31mg Inhale 0.31 mg 3 (three) times daily. [facility] aspirin 81 mg chewable tablet 2013-09 00:00: 00 Yes 81mg Take 1 Tab by mouth daily. [facility] ipratropium (ATROVENT) 0.02 % nebulizer solution 2013-09 00:00: 00 Yes .5mg Inhale 2.5 mL 4 (four) times daily. [facility] levalbutero l (XOPENEX) 0.31 mg/3 mL nebulizer solution 2013-09 00:00: 00 Yes .31mg Inhale 0.31 mg 3 (three) times daily. [facility] aspirin 81 mg chewable tablet 2013-09 00:00: 00 Yes 81mg Take 1 Tab by mouth daily. [facility] ipratropium (ATROVENT) 0.02 % nebulizer solution 2013-09 00:00: 00 Yes .5mg Inhale 2.5 mL 4 (four) times daily. [facility] levalbutero l (XOPENEX) 0.31 mg/3 mL nebulizer solution 2013-09 00:00: 00 Yes .31mg Inhale 0.31 mg 3 (three) times daily. [facility] aspirin 81 mg chewable tablet 2013-09 00:00: 00 Yes 81mg Take 1 Tab by mouth daily. [facility] ipratropium (ATROVENT) 0.02 % nebulizer solution 2013-09 00:00: 00 Yes .5mg Inhale 2.5 mL 4 (four) times daily. [facility] levalbutero l (XOPENEX) 0.31 mg/3 mL nebulizer solution 2013-09 00:00: 00 Yes .31mg Inhale 0.31 mg 3 (three) times daily. [facility] aspirin 81 mg chewable tablet 2013-09 00:00: 00 Yes 81mg Take 1 Tab by mouth daily. [facility] ipratropium (ATROVENT) 0.02 % nebulizer solution 2013-09 00:00: 00 Yes .5mg Inhale 2.5 mL 4 (four) times daily. [facility] levalbutero l (XOPENEX) 0.31 mg/3 mL nebulizer solution 2013-09 00:00: 00 Yes .31mg Inhale 0.31 mg 3 (three) times daily. [facility] aspirin 81 mg chewable tablet 2013-09 00:00: 00 Yes 81mg Take 1 Tab by mouth daily. [facility] ipratropium (ATROVENT) 0.02 % nebulizer solution 2013-09 00:00: 00 Yes .5mg Inhale 2.5 mL 4 (four) times daily. [facility] levalbutero l (XOPENEX) 0.31 mg/3 mL nebulizer solution 2013-09 00:00: 00 Yes .31mg Inhale 0.31 mg 3 (three) times daily. [facility] aspirin 81 mg chewable tablet 2013-09 00:00: 00 Yes 81mg Take 1 Tab by mouth daily. [facility] ipratropium (ATROVENT) 0.02 % nebulizer solution 2013-09 00:00: 00 Yes .5mg Inhale 2.5 mL 4 (four) times daily. [facility] levalbutero l (XOPENEX) 0.31 mg/3 mL nebulizer solution 2013-09 00:00: 00 Yes .31mg Inhale 0.31 mg 3 (three) times daily. [facility] aspirin 81 mg chewable tablet 2013-09 00:00: 00 Yes 81mg Take 1 Tab by mouth daily. [facility] ipratropium (ATROVENT) 0.02 % nebulizer solution 2013-09 00:00: 00 Yes .5mg Inhale 2.5 mL 4 (four) times daily. [facility] levalbutero l (XOPENEX) 0.31 mg/3 mL nebulizer solution 2013-09 00:00: 00 Yes .31mg Inhale 0.31 mg 3 (three) times daily. [facility] aspirin 81 mg chewable tablet 2013-09 00:00: 00 Yes 81mg Take 1 Tab by mouth daily. [facility] ipratropium (ATROVENT) 0.02 % nebulizer solution 2013-09 00:00: 00 Yes .5mg Inhale 2.5 mL 4 (four) times daily. [facility] levalbutero l (XOPENEX) 0.31 mg/3 mL nebulizer solution 2013-09 00:00: 00 Yes .31mg Inhale 0.31 mg 3 (three) times daily. [facility] aspirin 81 mg chewable tablet 2013-09 00:00: 00 Yes 81mg Take 1 Tab by mouth daily. [facility] ipratropium (ATROVENT) 0.02 % nebulizer solution 2013-09 00:00: 00 Yes .5mg Inhale 2.5 mL 4 (four) times daily. [facility] levalbutero l (XOPENEX) 0.31 mg/3 mL nebulizer solution 2013-09 00:00: 00 Yes .31mg Inhale 0.31 mg 3 (three) times daily. [facility] aspirin 81 mg chewable tablet 2013-09 00:00: 00 Yes 81mg Take 1 Tab by mouth daily. [facility] ipratropium (ATROVENT) 0.02 % nebulizer solution 2013-09 00:00: 00 Yes .5mg Inhale 2.5 mL 4 (four) times daily. [facility] levalbutero l (XOPENEX) 0.31 mg/3 mL nebulizer solution 2013-09 00:00: 00 Yes .31mg Inhale 0.31 mg 3 (three) times daily. [facility] aspirin 81 mg chewable tablet 2013-09 00:00: 00 Yes 81mg Take 1 Tab by mouth daily. [facility] ipratropium (ATROVENT) 0.02 % nebulizer solution 2013-09 00:00: 00 Yes .5mg Inhale 2.5 mL 4 (four) times daily. [facility] levalbutero l (XOPENEX) 0.31 mg/3 mL nebulizer solution 2013-09 00:00: 00 Yes .31mg Inhale 0.31 mg 3 (three) times daily. [facility] aspirin 81 mg chewable tablet 2013-09 00:00: 00 Yes 81mg Take 1 Tab by mouth daily. [facility] ipratropium (ATROVENT) 0.02 % nebulizer solution 2013-09 00:00: 00 Yes .5mg Inhale 2.5 mL 4 (four) times daily. [facility] levalbutero l (XOPENEX) 0.31 mg/3 mL nebulizer solution 2013-09 00:00: 00 Yes .31mg Inhale 0.31 mg 3 (three) times daily. [facility] aspirin 81 mg chewable tablet 2013-09 00:00: 00 Yes 81mg Take 1 Tab by mouth daily. [facility] ipratropium (ATROVENT) 0.02 % nebulizer solution 2013-09 00:00: 00 Yes .5mg Inhale 2.5 mL 4 (four) times daily. [facility] levalbutero l (XOPENEX) 0.31 mg/3 mL nebulizer solution 2013-09 00:00: 00 Yes .31mg Inhale 0.31 mg 3 (three) times daily. [facility] aspirin 81 mg chewable tablet 2013-09 00:00: 00 11-28 00:00 :00 No 81mg Take 1 Tab by mouth daily. [facility] ipratropium (ATROVENT) 0.02 % nebulizer solution 2013-09 00:00: 00 11-28 00:00 :00 No .5mg Inhale 2.5 mL 4 (four) times daily. [facility] levalbutero l (XOPENEX) 0.31 mg/3 mL nebulizer solution 2013-09 00:00: 00 11-28 00:00 :00 No .31mg Inhale 0.31 mg 3 (three) times daily. [facility] Immunizations Ordered Immunization Name Filled Immunization Name Date Status Comments Source Pneumococcal 20 Conjugate, PCV20 (Prevnar 20) 2022-12-12 00:00:00 Completed [facility] Pneumococcal 20 Conjugate, PCV20 (Prevnar 20) 2022-12-12 00:00:00 Completed [facility] Pneumococcal 20 Conjugate, PCV20 (Prevnar 20) 2022-12-12 00:00:00 Completed [facility] Pneumococcal 20 Conjugate, PCV20 (Prevnar 20) 2022-12-12 00:00:00 Completed [facility] Pneumococcal 20 Conjugate, PCV20 (Prevnar 20) 2022-12-12 00:00:00 Completed [facility] Pneumococcal 20 Conjugate, PCV20 (Prevnar 20) 2022-12-12 00:00:00 Completed [facility] Pneumococcal 20 Conjugate, PCV20 (Prevnar 20) 2022-12-12 00:00:00 Completed [facility] Pneumococcal 20 Conjugate, PCV20 (Prevnar 20) 2022-12-12 00:00:00 Completed [facility] Pneumococcal 20 Conjugate, PCV20 (Prevnar 20) 2022-12-12 00:00:00 Completed [facility] Pneumococcal 20 Conjugate, PCV20 (Prevnar 20) 2022-12-12 00:00:00 Completed [facility] Pneumococcal 20 Conjugate, PCV20 (Prevnar 20) 2022-12-12 00:00:00 Completed [facility] Pneumococcal 20 Conjugate, PCV20 (Prevnar 20) 2022-12-12 00:00:00 Completed [facility] Pneumococcal 20 Conjugate, PCV20 (Prevnar 20) 2022-12-12 00:00:00 Completed [facility] Pneumococcal 20 Conjugate, PCV20 (Prevnar 20) 2022-12-12 00:00:00 Completed [facility] Pneumococcal 20 Conjugate, PCV20 (Prevnar 20) 2022-12-12 00:00:00 Completed [facility] Pneumococcal 20 Conjugate, PCV20 (Prevnar 20) 2022-12-12 00:00:00 Completed [facility] Pneumococcal 20 Conjugate, PCV20 (Prevnar 20) 2022-12-12 00:00:00 Completed [facility] Pneumococcal 20 Conjugate, PCV20 (Prevnar 20) 2022-12-12 00:00:00 Completed [facility] Pneumococcal 20 Conjugate, PCV20 (Prevnar 20) 2022-12-12 00:00:00 Completed [facility] Pneumococcal 20 Conjugate, PCV20 (Prevnar 20) 2022-12-12 00:00:00 Completed [facility] Pneumococcal 20 Conjugate, PCV20 (Prevnar 20) 2022-12-12 00:00:00 Completed [facility] Pneumococcal 20 Conjugate, PCV20 (Prevnar 20) 2022-12-12 00:00:00 Completed [facility] Pneumococcal 20 Conjugate, PCV20 (Prevnar 20) 2022-12-12 00:00:00 Completed [facility] Pneumococcal 20 Conjugate, PCV20 (Prevnar 20) 2022-12-12 00:00:00 Completed [facility] Pneumococcal 20 Conjugate, PCV20 (Prevnar 20) 2022-12-12 00:00:00 Completed [facility] Pneumococcal 20 Conjugate, PCV20 (Prevnar 20) 2022-12-12 00:00:00 Completed [facility] Pneumococcal 20 Conjugate, PCV20 (Prevnar 20) 2022-12-12 00:00:00 Completed [facility] Pneumococcal 20 Conjugate, PCV20 (Prevnar 20) 2022-12-12 00:00:00 Completed [facility] Pneumococcal 20 Conjugate, PCV20 (Prevnar 20) 2022-12-12 00:00:00 Completed [facility] Pneumococcal 20 Conjugate, PCV20 (Prevnar 20) 2022-12-12 00:00:00 Completed [facility] Pneumococcal 20 Conjugate, PCV20 (Prevnar 20) 2022-12-12 00:00:00 Completed [facility] Pneumococcal 20 Conjugate, PCV20 (Prevnar 20) 2022-12-12 00:00:00 Completed [facility] Pneumococcal 20 Conjugate, PCV20 (Prevnar 20) 2022-12-12 00:00:00 Completed [facility] Pneumococcal 20 Conjugate, PCV20 (Prevnar 20) 2022-12-12 00:00:00 Completed [facility] Pneumococcal 20 Conjugate, PCV20 (Prevnar 20) 2022-12-12 00:00:00 Completed [facility] Pneumococcal 20 Conjugate, PCV20 (Prevnar 20) 2022-12-12 00:00:00 Completed [facility] SARS-COV-2 COVID-19 MODERNA 12+ YRS VACCINE 2020-11-23 00:00:00 Completed [facility] SARS-COV-2 COVID-19 MODERNA VACCINE 2020-11-23 00:00:00 Completed [facility] SARS-COV-2 COVID-19 MODERNA 12+ YRS VACCINE 2020-11-23 00:00:00 Completed [facility] SARS-COV-2 COVID-19 MODERNA 12+ YRS VACCINE 2020-11-23 00:00:00 Completed [facility] SARS-COV-2 COVID-19 MODERNA 12+ YRS VACCINE 2020-11-23 00:00:00 Completed [facility] SARS-COV-2 COVID-19 MODERNA 12+ YRS VACCINE 2020-11-23 00:00:00 Completed [facility] SARS-COV-2 COVID-19 MODERNA 12+ YRS VACCINE 2020-11-23 00:00:00 Completed [facility] SARS-COV-2 COVID-19 MODERNA VACCINE 2020-11-23 00:00:00 Completed [facility] SARS-COV-2 COVID-19 MODERNA 12+ YRS VACCINE 2020-11-23 00:00:00 Completed [facility] SARS-COV-2 COVID-19 MODERNA 12+ YRS VACCINE 2020-11-23 00:00:00 Completed [facility] SARS-COV-2 COVID-19 MODERNA 12+ YRS VACCINE 2020-11-23 00:00:00 Completed [facility] SARS-COV-2 COVID-19 MODERNA 12+ YRS VACCINE 2020-11-23 00:00:00 Completed [facility] SARS-COV-2 COVID-19 MODERNA 12+ YRS VACCINE 2020-11-23 00:00:00 Completed [facility] SARS-COV-2 COVID-19 MODERNA 12+ YRS VACCINE 2020-11-23 00:00:00 Completed [facility] SARS-COV-2 COVID-19 MODERNA VACCINE 2020-11-23 00:00:00 Completed [facility] SARS-COV-2 COVID-19 MODERNA 12+ YRS VACCINE 2020-11-23 00:00:00 Completed [facility] SARS-COV-2 COVID-19 MODERNA 12+ YRS VACCINE 2020-11-23 00:00:00 Completed [facility] SARS-COV-2 COVID-19 MODERNA 12+ YRS VACCINE 2020-11-23 00:00:00 Completed [facility] SARS-COV-2 COVID-19 MODERNA 12+ YRS VACCINE 2020-11-23 00:00:00 Completed [facility] SARS-COV-2 COVID-19 MODERNA 12+ YRS VACCINE 2020-11-23 00:00:00 Completed [facility] SARS-COV-2 COVID-19 MODERNA 12+ YRS VACCINE 2020-11-23 00:00:00 Completed [facility] SARS-COV-2 COVID-19 MODERNA 12+ YRS VACCINE 2020-11-23 00:00:00 Completed [facility] SARS-COV-2 COVID-19 MODERNA 12+ YRS VACCINE 2020-11-23 00:00:00 Completed [facility] SARS-COV-2 COVID-19 MODERNA 12+ YRS VACCINE 2020-11-23 00:00:00 Completed [facility] SARS-COV-2 COVID-19 MODERNA 12+ YRS VACCINE 2020-11-23 00:00:00 Completed [facility] SARS-COV-2 COVID-19 MODERNA 12+ YRS VACCINE 2020-11-23 00:00:00 Completed [facility] SARS-COV-2 COVID-19 MODERNA 12+ YRS VACCINE 2020-11-23 00:00:00 Completed [facility] SARS-COV-2 COVID-19 MODERNA 12+ YRS VACCINE 2020-11-23 00:00:00 Completed [facility] SARS-COV-2 COVID-19 MODERNA 12+ YRS VACCINE 2020-11-23 00:00:00 Completed [facility] SARS-COV-2 COVID-19 MODERNA 12+ YRS VACCINE 2020-11-23 00:00:00 Completed [facility] SARS-COV-2 COVID-19 MODERNA 12+ YRS VACCINE 2020-11-23 00:00:00 Completed [facility] SARS-COV-2 COVID-19 MODERNA 12+ YRS VACCINE 2020-11-23 00:00:00 Completed [facility] SARS-COV-2 COVID-19 MODERNA 12+ YRS VACCINE 2020-11-23 00:00:00 Completed [facility] SARS-COV-2 COVID-19 MODERNA 12+ YRS VACCINE 2020-11-23 00:00:00 Completed [facility] SARS-COV-2 COVID-19 MODERNA VACCINE 2020-11-23 00:00:00 Completed [facility] SARS-COV-2 COVID-19 MODERNA 12+ YRS VACCINE 2020-11-23 00:00:00 Completed [facility] SARS-COV-2 COVID-19 MODERNA 12+ YRS VACCINE 2020-11-23 00:00:00 Completed [facility] SARS-COV-2 COVID-19 MODERNA 12+ YRS VACCINE 2020-11-23 00:00:00 Completed [facility] SARS-COV-2 COVID-19 MODERNA 12+ YRS VACCINE 2020-11-23 00:00:00 Completed [facility] SARS-COV-2 COVID-19 MODERNA 12+ YRS VACCINE 2020-11-23 00:00:00 Completed [facility] SARS-COV-2 COVID-19 MODERNA VACCINE 2020-11-23 00:00:00 Completed [facility] SARS-COV-2 COVID-19 MODERNA 12+ YRS VACCINE 2020-11-23 00:00:00 Completed [facility] SARS-COV-2 COVID-19 MODERNA 12+ YRS VACCINE 2020-11-23 00:00:00 Completed [facility] SARS-COV-2 COVID-19 MODERNA 12+ YRS VACCINE 2020-11-23 00:00:00 Completed [facility] SARS-COV-2 COVID-19 MODERNA 12+ YRS VACCINE 2020-11-23 00:00:00 Completed [facility] SARS-COV-2 COVID-19 MODERNA 12+ YRS VACCINE 2020-11-23 00:00:00 Completed [facility] SARS-COV-2 COVID-19 MODERNA VACCINE 2020-11-23 00:00:00 Completed [facility] SARS-COV-2 COVID-19 MODERNA VACCINE 2020-11-23 00:00:00 Completed [facility] SARS-COV-2 COVID-19 MODERNA VACCINE 2020-11-23 00:00:00 Completed [facility] SARS-COV-2 COVID-19 MODERNA VACCINE 2020-11-23 00:00:00 Completed [facility] SARS-COV-2 COVID-19 MODERNA VACCINE 2020-11-23 00:00:00 Completed [facility] SARS-COV-2 COVID-19 MODERNA VACCINE 2020-11-23 00:00:00 Completed [facility] SARS-COV-2 COVID-19 MODERNA VACCINE 2020-11-23 00:00:00 Completed [facility] SARS-COV-2 COVID-19 MODERNA VACCINE 2020-11-23 00:00:00 Completed [facility] SARS-COV-2 COVID-19 MODERNA VACCINE 2020-11-23 00:00:00 Completed [facility] SARS-COV-2 COVID-19 MODERNA VACCINE 2020-11-23 00:00:00 Completed [facility] SARS-COV-2 COVID-19 MODERNA VACCINE 2020-11-23 00:00:00 Completed [facility] SARS-COV-2 COVID-19 MODERNA VACCINE 2020-11-23 00:00:00 Completed [facility] SARS-COV-2 COVID-19 MODERNA VACCINE 2020-11-23 00:00:00 Completed [facility] SARS-COV-2 COVID-19 MODERNA VACCINE 2020-11-23 00:00:00 Completed [facility] SARS-COV-2 COVID-19 MODERNA 12+ YRS VACCINE 2020-11-23 00:00:00 Completed [facility] SARS-COV-2 COVID-19 MODERNA 12+ YRS VACCINE 2020-11-23 00:00:00 Completed [facility] SARS-COV-2 COVID-19 MODERNA 12+ YRS VACCINE 2020-11-23 00:00:00 Completed [facility] SARS-COV-2 COVID-19 MODERNA 12+ YRS VACCINE 2020-11-23 00:00:00 Completed [facility] SARS-COV-2 COVID-19 MODERNA VACCINE 2020-11-23 00:00:00 Completed [facility] SARS-COV-2 COVID-19 MODERNA 12+ YRS VACCINE 2020-11-23 00:00:00 Completed [facility] SARS-COV-2 COVID-19 MODERNA 12+ YRS VACCINE 2020-11-23 00:00:00 Completed [facility] SARS-COV-2 COVID-19 MODERNA 12+ YRS VACCINE 2020-11-23 00:00:00 Completed [facility] SARS-COV-2 COVID-19 MODERNA VACCINE 2020-10-26 00:00:00 Completed [facility] SARS-COV-2 COVID-19 MODERNA 12+ YRS VACCINE 2020-10-26 00:00:00 Completed [facility] SARS-COV-2 COVID-19 MODERNA 12+ YRS VACCINE 2020-10-26 00:00:00 Completed [facility] SARS-COV-2 COVID-19 MODERNA 12+ YRS VACCINE 2020-10-26 00:00:00 Completed [facility] SARS-COV-2 COVID-19 MODERNA 12+ YRS VACCINE 2020-10-26 00:00:00 Completed [facility] SARS-COV-2 COVID-19 MODERNA 12+ YRS VACCINE 2020-10-26 00:00:00 Completed [facility] SARS-COV-2 COVID-19 MODERNA VACCINE 2020-10-26 00:00:00 Completed [facility] SARS-COV-2 COVID-19 MODERNA 12+ YRS VACCINE 2020-10-26 00:00:00 Completed [facility] SARS-COV-2 COVID-19 MODERNA 12+ YRS VACCINE 2020-10-26 00:00:00 Completed [facility] SARS-COV-2 COVID-19 MODERNA 12+ YRS VACCINE 2020-10-26 00:00:00 Completed [facility] SARS-COV-2 COVID-19 MODERNA 12+ YRS VACCINE 2020-10-26 00:00:00 Completed [facility] SARS-COV-2 COVID-19 MODERNA 12+ YRS VACCINE 2020-10-26 00:00:00 Completed [facility] SARS-COV-2 COVID-19 MODERNA 12+ YRS VACCINE 2020-10-26 00:00:00 Completed [facility] SARS-COV-2 COVID-19 MODERNA 12+ YRS VACCINE 2020-10-26 00:00:00 Completed [facility] SARS-COV-2 COVID-19 MODERNA VACCINE 2020-10-26 00:00:00 Completed [facility] SARS-COV-2 COVID-19 MODERNA 12+ YRS VACCINE 2020-10-26 00:00:00 Completed [facility] SARS-COV-2 COVID-19 MODERNA 12+ YRS VACCINE 2020-10-26 00:00:00 Completed [facility] SARS-COV-2 COVID-19 MODERNA 12+ YRS VACCINE 2020-10-26 00:00:00 Completed [facility] SARS-COV-2 COVID-19 MODERNA 12+ YRS VACCINE 2020-10-26 00:00:00 Completed [facility] SARS-COV-2 COVID-19 MODERNA 12+ YRS VACCINE 2020-10-26 00:00:00 Completed [facility] SARS-COV-2 COVID-19 MODERNA 12+ YRS VACCINE 2020-10-26 00:00:00 Completed [facility] SARS-COV-2 COVID-19 MODERNA 12+ YRS VACCINE 2020-10-26 00:00:00 Completed [facility] SARS-COV-2 COVID-19 MODERNA 12+ YRS VACCINE 2020-10-26 00:00:00 Completed [facility] SARS-COV-2 COVID-19 MODERNA 12+ YRS VACCINE 2020-10-26 00:00:00 Completed [facility] SARS-COV-2 COVID-19 MODERNA 12+ YRS VACCINE 2020-10-26 00:00:00 Completed [facility] SARS-COV-2 COVID-19 MODERNA 12+ YRS VACCINE 2020-10-26 00:00:00 Completed [facility] SARS-COV-2 COVID-19 MODERNA 12+ YRS VACCINE 2020-10-26 00:00:00 Completed [facility] SARS-COV-2 COVID-19 MODERNA 12+ YRS VACCINE 2020-10-26 00:00:00 Completed [facility] SARS-COV-2 COVID-19 MODERNA 12+ YRS VACCINE 2020-10-26 00:00:00 Completed [facility] SARS-COV-2 COVID-19 MODERNA 12+ YRS VACCINE 2020-10-26 00:00:00 Completed [facility] SARS-COV-2 COVID-19 MODERNA 12+ YRS VACCINE 2020-10-26 00:00:00 Completed [facility] SARS-COV-2 COVID-19 MODERNA 12+ YRS VACCINE 2020-10-26 00:00:00 Completed [facility] SARS-COV-2 COVID-19 MODERNA 12+ YRS VACCINE 2020-10-26 00:00:00 Completed [facility] SARS-COV-2 COVID-19 MODERNA 12+ YRS VACCINE 2020-10-26 00:00:00 Completed [facility] SARS-COV-2 COVID-19 MODERNA VACCINE 2020-10-26 00:00:00 Completed [facility] SARS-COV-2 COVID-19 MODERNA 12+ YRS VACCINE 2020-10-26 00:00:00 Completed [facility] SARS-COV-2 COVID-19 MODERNA 12+ YRS VACCINE 2020-10-26 00:00:00 Completed [facility] SARS-COV-2 COVID-19 MODERNA 12+ YRS VACCINE 2020-10-26 00:00:00 Completed [facility] SARS-COV-2 COVID-19 MODERNA 12+ YRS VACCINE 2020-10-26 00:00:00 Completed [facility] SARS-COV-2 COVID-19 MODERNA 12+ YRS VACCINE 2020-10-26 00:00:00 Completed [facility] SARS-COV-2 COVID-19 MODERNA VACCINE 2020-10-26 00:00:00 Completed [facility] SARS-COV-2 COVID-19 MODERNA 12+ YRS VACCINE 2020-10-26 00:00:00 Completed [facility] SARS-COV-2 COVID-19 MODERNA 12+ YRS VACCINE 2020-10-26 00:00:00 Completed [facility] SARS-COV-2 COVID-19 MODERNA 12+ YRS VACCINE 2020-10-26 00:00:00 Completed [facility] SARS-COV-2 COVID-19 MODERNA 12+ YRS VACCINE 2020-10-26 00:00:00 Completed [facility] SARS-COV-2 COVID-19 MODERNA 12+ YRS VACCINE 2020-10-26 00:00:00 Completed [facility] SARS-COV-2 COVID-19 MODERNA VACCINE 2020-10-26 00:00:00 Completed [facility] SARS-COV-2 COVID-19 MODERNA VACCINE 2020-10-26 00:00:00 Completed [facility] SARS-COV-2 COVID-19 MODERNA VACCINE 2020-10-26 00:00:00 Completed [facility] SARS-COV-2 COVID-19 MODERNA VACCINE 2020-10-26 00:00:00 Completed [facility] SARS-COV-2 COVID-19 MODERNA VACCINE 2020-10-26 00:00:00 Completed [facility] SARS-COV-2 COVID-19 MODERNA VACCINE 2020-10-26 00:00:00 Completed [facility] SARS-COV-2 COVID-19 MODERNA VACCINE 2020-10-26 00:00:00 Completed [facility] SARS-COV-2 COVID-19 MODERNA VACCINE 2020-10-26 00:00:00 Completed [facility] SARS-COV-2 COVID-19 MODERNA VACCINE 2020-10-26 00:00:00 Completed [facility] SARS-COV-2 COVID-19 MODERNA VACCINE 2020-10-26 00:00:00 Completed [facility] SARS-COV-2 COVID-19 MODERNA VACCINE 2020-10-26 00:00:00 Completed [facility] SARS-COV-2 COVID-19 MODERNA VACCINE 2020-10-26 00:00:00 Completed [facility] SARS-COV-2 COVID-19 MODERNA VACCINE 2020-10-26 00:00:00 Completed [facility] SARS-COV-2 COVID-19 MODERNA VACCINE 2020-10-26 00:00:00 Completed [facility] SARS-COV-2 COVID-19 MODERNA 12+ YRS VACCINE 2020-10-26 00:00:00 Completed [facility] SARS-COV-2 COVID-19 MODERNA 12+ YRS VACCINE 2020-10-26 00:00:00 Completed [facility] SARS-COV-2 COVID-19 MODERNA 12+ YRS VACCINE 2020-10-26 00:00:00 Completed [facility] SARS-COV-2 COVID-19 MODERNA 12+ YRS VACCINE 2020-10-26 00:00:00 Completed [facility] SARS-COV-2 COVID-19 MODERNA VACCINE 2020-10-26 00:00:00 Completed [facility] SARS-COV-2 COVID-19 MODERNA 12+ YRS VACCINE 2020-10-26 00:00:00 Completed [facility] SARS-COV-2 COVID-19 MODERNA 12+ YRS VACCINE 2020-10-26 00:00:00 Completed [facility] SARS-COV-2 COVID-19 MODERNA 12+ YRS VACCINE 2020-10-26 00:00:00 Completed [facility] Td 2019-02-16 00:00:00 Completed [facility] TD, NOS 2019-02-16 00:00:00 Completed [facility] TD, NOS 2019-02-16 00:00:00 Completed [facility] TD, NOS 2019-02-16 00:00:00 Completed [facility] TD, NOS 2019-02-16 00:00:00 Completed [facility] TD, NOS 2019-02-16 00:00:00 Completed [facility] Td 2019-02-16 00:00:00 Completed [facility] TD, NOS 2019-02-16 00:00:00 Completed [facility] TD, NOS 2019-02-16 00:00:00 Completed [facility] TD, NOS 2019-02-16 00:00:00 Completed [facility] TD, NOS 2019-02-16 00:00:00 Completed [facility] TD, NOS 2019-02-16 00:00:00 Completed [facility] TD, NOS 2019-02-16 00:00:00 Completed [facility] TD, NOS 2019-02-16 00:00:00 Completed [facility] Td 2019-02-16 00:00:00 Completed [facility] TD, NOS 2019-02-16 00:00:00 Completed [facility] TD, NOS 2019-02-16 00:00:00 Completed [facility] TD, NOS 2019-02-16 00:00:00 Completed [facility] TD, NOS 2019-02-16 00:00:00 Completed [facility] Td 2019-02-16 00:00:00 Completed [facility] TD, NOS 2019-02-16 00:00:00 Completed [facility] TD, NOS 2019-02-16 00:00:00 Completed [facility] TD, NOS 2019-02-16 00:00:00 Completed [facility] TD, NOS 2019-02-16 00:00:[address] [facility] Td 2019-02-16 00:00:[address] [facility] TD, NOS 2019-02-16 00:00:[address] [facility] TD, NOS 2019-02-16 00:00:00 Completed [facility] TD, NOS 2019-02-16 00:00:00 Completed [facility] TD, NOS 2019-02-16 00:00:00 Completed [facility] TD, NOS 2019-02-16 00:00:[address] [facility] TD, NOS 2019-02-16 00:00:00 Completed [facility] TD, NOS 2019-02-16 00:00:00 Completed [facility] Td 2019-02-16 00:00:00 Completed [facility] TD, NOS 2019-02-16 00:00:00 Completed [facility] TD, NOS 2019-02-16 00:00:[address] [facility] TD, NOS 2019-02-16 00:00:[address] [facility] TD, NOS 2019-02-16 00:00:00 Completed [facility] Td 2019-02-16 00:00:00 Completed [facility] TD, NOS 2019-02-16 00:00:00 Completed [facility] TD, NOS 2019-02-16 00:00:00 Completed [facility] TD, NOS 2019-02-16 00:00:[address] [facility] TD, NOS 2019-02-16 00:00:[address] [facility] Td 2019-02-16 00:00:[address] [facility] TD, NOS 2019-02-16 00:00:[address] [facility] TD, NOS 2019-02-16 00:00:[address] [facility] TD, NOS 2019-02-16 00:00:[address] [facility] TD, NOS 2019-02-16 00:00:[address] [facility] TD, NOS 2019-02-16 00:00:[address] [facility] TD, NOS 2019-02-16 00:00:00 Completed [facility] Td 2019-02-16 00:00:00 Completed [facility] Td 2019-02-16 00:00:00 Completed [facility] Td 2019-02-16 00:00:00 Completed [facility] Td 2019-02-16 00:00:00 Completed [facility] Td 2019-02-16 00:00:00 Completed [facility] Td 2019-02-16 00:00:00 Completed [facility] Td 2019-02-16 00:00:00 Completed [facility] Td 2019-02-16 00:00:00 Completed [facility] Td 2019-02-16 00:00:00 Completed [facility] Td 2019-02-16 00:00:00 Completed [facility] Td 2019-02-16 00:00:00 Completed [facility] Td 2019-02-16 00:00:00 Completed [facility] Td 2019-02-16 00:00:00 Completed [facility] Td 2019-02-16 00:00:00 Completed [facility] TD, NOS 2019-02-16 00:00:00 Completed [facility] TD, NOS 2019-02-16 00:00:00 Completed [facility] TD, NOS 2019-02-16 00:00:00 Completed [facility] TD, NOS 2019-02-16 00:00:00 Completed [facility] Td 2019-02-16 00:00:00 Completed [facility] TD, NOS 2019-02-16 00:00:00 Completed [facility] TD, NOS 2019-02-16 00:00:00 Completed [facility] TD, NOS 2019-02-16 00:00:00 Completed [facility] Pneumococcal Polysaccharide, PPSV23 (PNEUMOVAX) 2014-09-05 00:00:00 Completed [facility] Influenza Virus Vaccine Quad IM 3+ YRS 2014-09-05 00:00:00 Completed [facility] Pneumococcal Polysaccharide, PPSV23 (PNEUMOVAX) 2014-09-05 00:00:00 Completed [facility] Influenza Virus Vaccine Quad IM 3+ YRS 2014-09-05 00:00:00 Completed [facility] Pneumococcal Polysaccharide, PPSV23 (PNEUMOVAX) 2014-09-05 00:00:00 Completed [facility] Influenza Virus Vaccine Quad IM 3+ YRS 2014-09-05 00:00:00 Completed [facility] Pneumococcal Polysaccharide, PPSV23 (PNEUMOVAX) 2014-09-05 00:00:00 Completed [facility] Influenza Virus Vaccine Quad IM 3+ YRS 2014-09-05 00:00:00 Completed [facility] Pneumococcal Polysaccharide, PPSV23 (PNEUMOVAX) 2014-09-05 00:00:00 Completed [facility] Influenza Virus Vaccine Quad IM 3+ YRS 2014-09-05 00:00:00 Completed [facility] Pneumococcal Polysaccharide, PPSV23 (PNEUMOVAX) 2014-09-05 00:00:00 Completed [facility] Influenza Virus Vaccine Quad IM 3+ YRS 2014-09-05 00:00:00 Completed [facility] Pneumococcal Polysaccharide, PPSV23 (PNEUMOVAX) 2014-09-05 00:00:00 Completed [facility] Influenza Virus Vaccine Quad IM 3+ YRS 2014-09-05 00:00:00 Completed [facility] Pneumococcal Polysaccharide, PPSV23 (PNEUMOVAX) 2014-09-05 00:00:00 Completed [facility] Influenza Virus Vaccine Quad IM 3+ YRS 2014-09-05 00:00:00 Completed [facility] Pneumococcal Polysaccharide, PPSV23 (PNEUMOVAX) 2014-09-05 00:00:00 Completed [facility] Influenza Virus Vaccine Quad IM 3+ YRS 2014-09-05 00:00:00 Completed [facility] Pneumococcal Polysaccharide, PPSV23 (PNEUMOVAX) 2014-09-05 00:00:00 Completed [facility] Influenza Virus Vaccine Quad IM 3+ YRS 2014-09-05 00:00:00 Completed [facility] Pneumococcal Polysaccharide, PPSV23 (PNEUMOVAX) 2014-09-05 00:00:00 Completed [facility] Influenza Virus Vaccine Quad IM 3+ YRS 2014-09-05 00:00:00 Completed [facility] Pneumococcal Polysaccharide, PPSV23 (PNEUMOVAX) 2014-09-05 00:00:00 Completed [facility] Influenza Virus Vaccine Quad IM 3+ YRS 2014-09-05 00:00:00 Completed [facility] Pneumococcal Polysaccharide, PPSV23 (PNEUMOVAX) 2014-09-05 00:00:00 Completed [facility] Influenza Virus Vaccine Quad IM 3+ YRS 2014-09-05 00:00:00 Completed [facility] Influenza Virus Vaccine Quad IM 3+ YRS 2014-09-05 00:00:00 Completed [facility] Pneumococcal Polysaccharide, PPSV23 (PNEUMOVAX) 2014-09-05 00:00:00 Completed [facility] Pneumococcal Polysaccharide, PPSV23 (PNEUMOVAX) 2014-09-05 00:00:00 Completed [facility] Influenza Virus Vaccine Quad IM 3+ YRS 2014-09-05 00:00:00 Completed [facility] Pneumococcal Polysaccharide, PPSV23 (PNEUMOVAX) 2014-09-05 00:00:00 Completed [facility] Influenza Virus Vaccine Quad IM 3+ YRS 2014-09-05 00:00:00 Completed [facility] Pneumococcal Polysaccharide, PPSV23 (PNEUMOVAX) 2014-09-05 00:00:00 Completed [facility] Influenza Virus Vaccine Quad IM 3+ YRS 2014-09-05 00:00:00 Completed [facility] Pneumococcal Polysaccharide, PPSV23 (PNEUMOVAX) 2014-09-05 00:00:00 Completed [facility] Influenza Virus Vaccine Quad IM 3+ YRS 2014-09-05 00:00:00 Completed [facility] Pneumococcal Polysaccharide, PPSV23 (PNEUMOVAX) 2014-09-05 00:00:00 Completed [facility] Influenza Virus Vaccine Quad IM 3+ YRS 2014-09-05 00:00:00 Completed [facility] Pneumococcal Polysaccharide, PPSV23 (PNEUMOVAX) 2014-09-05 00:00:00 Completed [facility] Influenza Virus Vaccine Quad IM 3+ YRS 2014-09-05 00:00:00 Completed [facility] Pneumococcal Polysaccharide, PPSV23 (PNEUMOVAX) 2014-09-05 00:00:00 Completed [facility] Influenza Virus Vaccine Quad IM 3+ YRS 2014-09-05 00:00:00 Completed [facility] Pneumococcal Polysaccharide, PPSV23 (PNEUMOVAX) 2014-09-05 00:00:00 Completed [facility] Influenza Virus Vaccine Quad IM 3+ YRS 2014-09-05 00:00:00 Completed [facility] Pneumococcal Polysaccharide, PPSV23 (PNEUMOVAX) 2014-09-05 00:00:00 Completed [facility] Influenza Virus Vaccine Quad IM 3+ YRS 2014-09-05 00:00:00 Completed [facility] Pneumococcal Polysaccharide, PPSV23 (PNEUMOVAX) 2014-09-05 00:00:00 Completed [facility] Influenza Virus Vaccine Quad IM 3+ YRS 2014-09-05 00:00:00 Completed [facility] Pneumococcal Polysaccharide, PPSV23 (PNEUMOVAX) 2014-09-05 00:00:00 Completed [facility] Influenza Virus Vaccine Quad IM 3+ YRS 2014-09-05 00:00:00 Completed [facility] Pneumococcal Polysaccharide, PPSV23 (PNEUMOVAX) 2014-09-05 00:00:00 Completed [facility] Influenza Virus Vaccine Quad IM 3+ YRS 2014-09-05 00:00:00 Completed [facility] Pneumococcal Polysaccharide, PPSV23 (PNEUMOVAX) 2014-09-05 00:00:00 Completed [facility] Influenza Virus Vaccine Quad IM 3+ YRS 2014-09-05 00:00:00 Completed [facility] Pneumococcal Polysaccharide, PPSV23 (PNEUMOVAX) 2014-09-05 00:00:00 Completed [facility] Influenza Virus Vaccine Quad IM 3+ YRS 2014-09-05 00:00:00 Completed [facility] Pneumococcal Polysaccharide, PPSV23 (PNEUMOVAX) 2014-09-05 00:00:00 Completed [facility] Influenza Virus Vaccine Quad IM 3+ YRS 2014-09-05 00:00:00 Completed [facility] Pneumococcal Polysaccharide, PPSV23 (PNEUMOVAX) 2014-09-05 00:00:00 Completed [facility] Influenza Virus Vaccine Quad IM 3+ YRS 2014-09-05 00:00:00 Completed [facility] Pneumococcal Polysaccharide, PPSV23 (PNEUMOVAX) 2014-09-05 00:00:00 Completed [facility] Influenza Virus Vaccine Quad IM 3+ YRS 2014-09-05 00:00:00 Completed [facility] Influenza Virus Vaccine Quad IM 3+ YRS 2014-09-05 00:00:00 Completed [facility] Pneumococcal Polysaccharide, PPSV23 (PNEUMOVAX) 2014-09-05 00:00:00 Completed [facility] Pneumococcal Polysaccharide, PPSV23 (PNEUMOVAX) 2014-09-05 00:00:00 Completed [facility] Influenza Virus Vaccine Quad IM 3+ YRS 2014-09-05 00:00:00 Completed [facility] Pneumococcal Polysaccharide, PPSV23 (PNEUMOVAX) 2014-09-05 00:00:00 Completed [facility] Influenza Virus Vaccine Quad IM 3+ YRS 2014-09-05 00:00:00 Completed [facility] Pneumococcal Polysaccharide, PPSV23 (PNEUMOVAX) 2014-09-05 00:00:00 Completed [facility] Influenza Virus Vaccine Quad IM 3+ YRS 2014-09-05 00:00:00 Completed [facility] Pneumococcal Polysaccharide, PPSV23 (PNEUMOVAX) 2014-09-05 00:00:00 Completed [facility] Influenza Virus Vaccine Quad IM 3+ YRS 2014-09-05 00:00:00 Completed [facility] Pneumococcal Polysaccharide, PPSV23 (PNEUMOVAX) 2014-09-05 00:00:00 Completed [facility] Influenza Virus Vaccine Quad IM 3+ YRS 2014-09-05 00:00:00 Completed [facility] Pneumococcal Polysaccharide, PPSV23 (PNEUMOVAX) 2014-09-05 00:00:00 Completed [facility] Influenza Virus Vaccine Quad IM 3+ YRS 2014-09-05 00:00:00 Completed [facility] Pneumococcal Polysaccharide, PPSV23 (PNEUMOVAX) 2014-09-05 00:00:00 Completed [facility] Influenza Virus Vaccine Quad IM 3+ YRS 2014-09-05 00:00:00 Completed [facility] Pneumococcal Polysaccharide, PPSV23 (PNEUMOVAX) 2014-09-05 00:00:00 Completed [facility] Influenza Virus Vaccine Quad IM 3+ YRS 2014-09-05 00:00:00 Completed [facility] Pneumococcal Polysaccharide, PPSV23 (PNEUMOVAX) 2014-09-05 00:00:00 Completed [facility] Influenza Virus Vaccine Quad IM 3+ YRS 2014-09-05 00:00:00 Completed [facility] Pneumococcal Polysaccharide, PPSV23 (PNEUMOVAX) 2014-09-05 00:00:00 Completed [facility] Influenza Virus Vaccine Quad IM 3+ YRS 2014-09-05 00:00:00 Completed [facility] Pneumococcal Polysaccharide, PPSV23 (PNEUMOVAX) 2014-09-05 00:00:00 Completed [facility] Influenza Virus Vaccine Quad IM 3+ YRS 2014-09-05 00:00:00 Completed [facility] Pneumococcal Polysaccharide, PPSV23 (PNEUMOVAX) 2014-09-05 00:00:00 Completed [facility] Influenza Virus Vaccine Quad IM 3+ YRS 2014-09-05 00:00:00 Completed [facility] Pneumococcal Polysaccharide, PPSV23 (PNEUMOVAX) 2014-09-05 00:00:00 Completed [facility] Influenza Virus Vaccine Quad IM 3+ YRS 2014-09-05 00:00:00 Completed [facility] Pneumococcal Polysaccharide, PPSV23 (PNEUMOVAX) 2014-09-05 00:00:00 Completed [facility] Influenza Virus Vaccine Quad IM 3+ YRS 2014-09-05 00:00:00 Completed [facility] Pneumococcal Polysaccharide, PPSV23 (PNEUMOVAX) 2014-09-05 00:00:00 Completed [facility] Influenza Virus Vaccine Quad IM 3+ YRS 2014-09-05 00:00:00 Completed [facility] Pneumococcal Polysaccharide, PPSV23 (PNEUMOVAX) 2014-09-05 00:00:00 Completed [facility] Influenza Virus Vaccine Quad IM 3+ YRS 2014-09-05 00:00:00 Completed [facility] Pneumococcal Polysaccharide, PPSV23 (PNEUMOVAX) 2014-09-05 00:00:00 Completed [facility] Influenza Virus Vaccine Quad IM 3+ YRS 2014-09-05 00:00:00 Completed [facility] Pneumococcal Polysaccharide, PPSV23 (PNEUMOVAX) 2014-09-05 00:00:00 Completed [facility] Influenza Virus Vaccine Quad IM 3+ YRS 2014-09-05 00:00:00 Completed [facility] Pneumococcal Polysaccharide, PPSV23 (PNEUMOVAX) 2014-09-05 00:00:00 Completed [facility] Influenza Virus Vaccine Quad IM 3+ YRS 2014-09-05 00:00:00 Completed [facility] Pneumococcal Polysaccharide, PPSV23 (PNEUMOVAX) 2014-09-05 00:00:00 Completed [facility] Influenza Virus Vaccine Quad IM 3+ YRS 2014-09-05 00:00:00 Completed [facility] Pneumococcal Polysaccharide, PPSV23 (PNEUMOVAX) 2014-09-05 00:00:00 Completed [facility] Influenza Virus Vaccine Quad IM 3+ YRS 2014-09-05 00:00:00 Completed [facility] Pneumococcal Polysaccharide, PPSV23 (PNEUMOVAX) 2014-09-05 00:00:00 Completed [facility] Influenza Virus Vaccine Quad IM 3+ YRS 2014-09-05 00:00:00 Completed [facility] Pneumococcal Polysaccharide, PPSV23 (PNEUMOVAX) 2014-09-05 00:00:00 Completed [facility] Influenza Virus Vaccine Quad IM 3+ YRS 2014-09-05 00:00:00 Completed [facility] Pneumococcal Polysaccharide, PPSV23 (PNEUMOVAX) 2014-09-05 00:00:00 Completed [facility] Influenza Virus Vaccine Quad IM 3+ YRS 2014-09-05 00:00:00 Completed [facility] Pneumococcal Polysaccharide, PPSV23 (PNEUMOVAX) 2014-09-05 00:00:00 Completed [facility] Influenza Virus Vaccine Quad IM 3+ YRS 2014-09-05 00:00:00 Completed [facility] Pneumococcal Polysaccharide, PPSV23 (PNEUMOVAX) 2014-09-05 00:00:00 Completed [facility] Influenza Virus Vaccine Quad IM 3+ YRS 2014-09-05 00:00:00 Completed [facility] Pneumococcal Polysaccharide, PPSV23 (PNEUMOVAX) 2014-09-05 00:00:00 Completed [facility] Influenza Virus Vaccine Quad IM 3+ YRS 2014-09-05 00:00:00 Completed [facility] Pneumococcal Polysaccharide, PPSV23 (PNEUMOVAX) 2014-09-05 00:00:00 Completed [facility] Influenza Virus Vaccine Quad IM 3+ YRS 2014-09-05 00:00:00 Completed [facility] Pneumococcal Polysaccharide, PPSV23 (PNEUMOVAX) 2014-09-05 00:00:00 Completed [facility] Influenza Virus Vaccine Quad IM 3+ YRS 2014-09-05 00:00:00 Completed [facility] Pneumococcal Polysaccharide, PPSV23 (PNEUMOVAX) 2014-09-05 00:00:00 Completed [facility] Influenza Virus Vaccine Quad IM 3+ YRS 2014-09-05 00:00:00 Completed [facility] Pneumococcal Polysaccharide, PPSV23 (PNEUMOVAX) 2014-09-05 00:00:00 Completed [facility] Influenza Virus Vaccine Quad IM 3+ YRS 2014-09-05 00:00:00 Completed [facility] Pneumococcal Polysaccharide, PPSV23 (PNEUMOVAX) 2014-09-05 00:00:00 Completed [facility] Influenza Virus Vaccine Quad IM 3+ YRS 2014-09-05 00:00:00 Completed [facility] Pneumococcal Polysaccharide, PPSV23 (PNEUMOVAX) 2014-09-05 00:00:00 Completed [facility] Influenza Virus Vaccine Quad IM 3+ YRS 2014-09-05 00:00:00 Completed [facility] Pneumococcal Polysaccharide, PPSV23 (PNEUMOVAX) 2014-09-05 00:00:00 Completed [facility] Influenza Virus Vaccine Quad IM 3+ YRS 2014-09-05 00:00:00 Completed [facility] Influenza Virus Vaccine Quad IM 3+ YRS 2014-09-05 00:00:00 Completed [facility] Pneumococcal Polysaccharide, PPSV23 (PNEUMOVAX) 2014-09-05 00:00:00 Completed [facility] Pneumococcal Polysaccharide, PPSV23 (PNEUMOVAX) 2014-09-05 00:00:00 Completed [facility] Influenza Virus Vaccine Quad IM 3+ YRS 2014-09-05 00:00:00 Completed [facility] Pneumococcal Polysaccharide, PPSV23 (PNEUMOVAX) 2014-09-05 00:00:00 Completed [facility] Influenza Virus Vaccine Quad IM 3+ YRS 2014-09-05 00:00:00 Completed [facility] Pneumococcal Polysaccharide, PPSV23 (PNEUMOVAX) 2014-09-05 00:00:00 Completed [facility] Influenza Virus Vaccine Quad IM 3+ YRS 2014-09-05 00:00:00 Completed [facility] Pneumococcal Polysaccharide, PPSV23 (PNEUMOVAX) 2014-09-05 00:00:00 Completed [facility] Influenza Virus Vaccine Quad IM 3+ YRS 2014-09-05 00:00:00 Completed [facility] Influenza Virus Vaccine Quad IM 3+ YRS Unknown Completed [facility] Pneumococcal Polysaccharide, PPSV23 (PNEUMOVAX) Unknown Completed [facility] TD, NOS Unknown Completed [facility] SARS-COV-2 COVID-19 MODERNA 12+ YRS VACCINE Unknown Completed [facility] SARS-COV-2 COVID-19 MODERNA 12+ YRS VACCINE Unknown Completed [facility] Pneumococcal 20 Conjugate, PCV20 (Prevnar 20) Unknown Completed [facility] Influenza Virus Vaccine Quad IM 3+ YRS Unknown Completed [facility] Pneumococcal Polysaccharide, PPSV23 (PNEUMOVAX) Unknown Completed [facility] TD, NOS Unknown Completed [facility] SARS-COV-2 COVID-19 MODERNA 12+ YRS VACCINE Unknown Completed [facility] SARS-COV-2 COVID-19 MODERNA 12+ YRS VACCINE Unknown Completed [facility] Pneumococcal 20 Conjugate, PCV20 (Prevnar 20) Unknown Completed [facility] Influenza Virus Vaccine Quad IM 3+ YRS Unknown Completed [facility] Pneumococcal Polysaccharide, PPSV23 (PNEUMOVAX) Unknown Completed [facility] TD, NOS Unknown Completed [facility] SARS-COV-2 COVID-19 MODERNA 12+ YRS VACCINE Unknown Completed [facility] SARS-COV-2 COVID-19 MODERNA 12+ YRS VACCINE Unknown Completed [facility] Pneumococcal 20 Conjugate, PCV20 (Prevnar 20) Unknown Completed [facility] Vital Signs Vital Name Observation Time Observation Value Comments S ource Systolic blood pressure 2023-04-19 15:37:00 126 mm[Hg] [facility] Diastolic blood pressure 2023-04-19 15:37:00 83 mm[Hg] [facility] Heart rate 2023-04-19 15:37:00 94 /min [facility] Respiratory rate 2023-04-19 15:35:00 18 /min [facility] Body height 2023-04-19 15:35:00 177.8 cm [facility] Body weight 2023-04-19 15:35:00 59.138 kg [facility] BMI 2023-04-19 15:35:00 18.71 kg/m2 [facility] Oxygen saturation in Arterial blood by Pulse oximetry 2023-04-19 15:35:00 94 /min [facility] Systolic blood pressure 2023-03-01 20:27:00 143 mm[Hg] [facility] Diastolic blood pressure 2023-03-01 20:27:00 87 mm[Hg] [facility] Heart rate 2023-03-01 20:27:00 99 /min [facility] Body height 2023-03-01 20:27:00 177.8 cm [facility] Body weight 2023-03-01 20:27:00 57.153 kg [facility] BMI 2023-03-01 20:27:00 18.08 kg/m2 [facility] Oxygen saturation in Arterial blood by Pulse oximetry 2023-03-01 20:27:00 99 /min [facility] Systolic blood pressure 2023-02-18 16:17:00 144 mm[Hg] [facility] [facility] Di[facility] blood pressure 2023-02-18 16:17:00 68 mm[Hg] [facility] Heart rate 2023-02-18 16:17:00 55 /min [facility] Body temperature 2023-02-18 16:17:00 36.06 [facility] Respiratory rate 2023-02-18 16:17:00 18 /min [facility] Oxygen saturation in Arterial blood by Pulse oximetry 2023-02-18 16:17:00 100 /min [facility] Body weight 2023-02-18 07:50:00 58.968 kg [facility] BMI 2023-02-18 07:50:00 18.65 kg/m2 [facility] Body height 2023-02-16 00:31:00 177.8 cm [facility] Oxygen saturation in Arterial blood by Pulse oximetry 2023-02-07 19:29:00 99 /min [facility] Systolic blood pressure 2023-02-07 19:27:00 103 mm[Hg] [facility] Diastolic blood pressure 2023-02-07 19:27:00 75 mm[Hg] [facility] Heart rate 2023-02-07 19:27:00 104 /min [facility] Body temperature 2023-02-07 19:27:00 36.39 [facility] Respiratory rate 2023-02-07 19:27:00 22 /min [facility] Body weight 2023-02-07 19:27:00 72.576 kg [facility] BMI 2023-02-07 19:27:00 22.96 kg/m2 [facility] Heart rate 2023-02-05 20:17:00 85 /min [facility] Respiratory rate 2023-02-05 20:17:00 18 /min [facility] Oxygen saturation in Arterial blood by Pulse oximetry 2023-02-05 20:17:00 100 /min [facility] Systolic blood pressure 2023-02-05 19:53:35 98 mm[Hg] [facility] Diastolic blood pressure 2023-02-05 19:53:35 71 mm[Hg] [facility] Body temperature 2023-02-05 19:51:00 36.5 [facility] Body height 2023-02-05 19:51:00 177.8 cm [facility] Body weight 2023-02-05 19:51:00 72.576 kg [facility] BMI 2023-02-05 19:51:00 22.96 kg/m2 [facility] Heart rate 2023-02-04 20:31:00 76 /min [facility] Respiratory rate 2023-02-04 20:31:00 18 /min [facility] Oxygen saturation in Arterial blood by Pulse oximetry 2023-02-04 20:31:00 97 /min [facility] Systolic blood pressure 2023-02-04 20:15:00 126 mm[Hg] [facility] Diastolic blood pressure 2023-02-04 20:15:00 98 mm[Hg] [facility] Body temperature 2023-02-04 20:15:00 36.83 [facility] Body weight 2023-02-04 20:15:00 72.576 kg [facility] BMI 2023-02-04 20:15:00 22.96 kg/m2 [facility] Systolic blood pressure 2023-02-03 23:00:00 100 mm[Hg] [facility] Diastolic blood pressure 2023-02-03 23:00:00 65 mm[Hg] [facility] Heart rate 2023-02-03 23:00:00 115 /min [facility] Respiratory rate 2023-02-03 23:00:00 20 /min [facility] Oxygen saturation in Arterial blood by Pulse oximetry 2023-02-03 23:00:00 97 /min [facility] Body temperature 2023-02-03 22:44:00 36.72 [facility] Body weight 2023-02-03 22:44:00 72.576 kg [facility] BMI 2023-02-03 22:44:00 22.96 kg/m2 [facility] Systolic blood pressure 2023-02-03 20:02:00 128 mm[Hg] [facility] Diastolic blood pressure 2023-02-03 20:02:00 81 mm[Hg] [facility] Heart rate 2023-02-03 20:02:00 88 /min [facility] Respiratory rate 2023-02-03 20:02:00 25 /min [facility] Oxygen saturation in Arterial blood by Pulse oximetry 2023-02-03 20:02:00 94 /min [facility] Body temperature 2023-02-03 18:18:00 36.61 [facility] Body weight 2023-02-03 17:41:00 72.576 kg [facility] BMI 2023-02-03 17:41:00 22.96 kg/m2 [facility] Heart rate 2023-02-02 22:49:00 107 /min [facility] Respiratory rate 2023-02-02 22:49:00 20 /min [facility] Oxygen saturation in Arterial blood by Pulse oximetry 2023-02-02 22:49:00 94 /min [facility] Systolic blood pressure 2023-02-02 22:32:00 102 mm[Hg] [facility] Diastolic blood pressure 2023-02-02 22:32:00 74 mm[Hg] [facility] Body temperature 2023-02-02 21:58:32 35.83 [facility] Body height 2023-02-02 21:54:00 177.8 cm [facility] Body weight 2023-02-02 21:54:00 72.576 kg [facility] BMI 2023-02-02 21:54:00 22.96 kg/m2 [facility] Systolic blood pressure 2023-01-31 21:00:00 140 mm[Hg] [facility] Diastolic blood pressure 2023-01-31 21:00:00 72 mm[Hg] [facility] Heart rate 2023-01-31 21:00:00 89 /min [facility] Respiratory rate 2023-01-31 21:00:00 20 /min [facility] Oxygen saturation in Arterial blood by Pulse oximetry 2023-01-31 21:00:00 97 /min [facility] Body temperature 2023-01-31 18:50:00 36.72 [facility] Body weight 2023-01-31 18:50:00 72.576 kg [facility] BMI 2023-01-31 18:50:00 22.96 kg/m2 [facility] Systolic blood pressure 2023-01-31 16:09:00 130 mm[Hg] [facility] Diastolic blood pressure 2023-01-31 16:09:00 72 mm[Hg] [facility] Heart rate 2023-01-31 16:09:00 99 /min [facility] Body temperature 2023-01-31 16:09:00 36.39 [facility] Respiratory rate 2023-01-31 16:09:00 18 /min [facility] Body height 2023-01-31 16:09:00 177.8 cm [facility] Body weight 2023-01-31 16:09:00 72.576 kg [facility] BMI 2023-01-31 16:09:00 22.96 kg/m2 [facility] Oxygen saturation in Arterial blood by Pulse oximetry 2023-01-31 16:09:00 97 /min [facility] Systolic blood pressure 2023-01-31 14:50:00 134 mm[Hg] [facility] Diastolic blood pressure 2023-01-31 14:50:00 72 mm[Hg] [facility] Heart rate 2023-01-31 14:50:00 85 /min [facility] Body temperature 2023-01-31 14:50:00 36.39 [facility] Respiratory rate 2023-01-31 14:50:00 20 /min [facility] Body weight 2023-01-31 14:50:00 72.576 kg [facility] BMI 2023-01-31 14:50:00 22.96 kg/m2 [facility] Oxygen saturation in Arterial blood by Pulse oximetry 2023-01-31 14:50:00 100 /min [facility] Respiratory rate 2023-01-29 13:40:00 20 /min [facility] Oxygen saturation in Arterial blood by Pulse oximetry 2023-01-29 13:40:00 100 /min [facility] Systolic blood pressure 2023-01-29 13:06:00 123 mm[Hg] [facility] Diastolic blood pressure 2023-01-29 13:06:00 76 mm[Hg] [facility] Heart rate 2023-01-29 13:06:00 97 /min [facility] Body temperature 2023-01-29 13:06:00 36.61 [facility] Body height 2023-01-29 13:06:00 177.8 cm [facility] Body weight 2023-01-29 13:06:00 72.576 kg [facility] BMI 2023-01-29 13:06:00 22.96 kg/m2 [facility] Systolic blood pressure 2023-01-27 11:47:00 115 mm[Hg] [facility] Diastolic blood pressure 2023-01-27 11:47:00 75 mm[Hg] [facility] Heart rate 2023-01-27 11:47:00 100 /min [facility] Body temperature 2023-01-27 11:47:00 35.78 [facility] Respiratory rate 2023-01-27 11:47:00 28 /min [facility] Oxygen saturation in Arterial blood by Pulse oximetry 2023-01-27 11:47:00 99 /min [facility] Body height 2023-01-27 09:57:00 177.8 cm [facility] Body weight 2023-01-27 09:57:00 72.576 kg [facility] BMI 2023-01-27 09:57:00 22.96 kg/m2 [facility] Heart rate 2023-01-24 20:55:00 88 /min [facility] Oxygen saturation in Arterial blood by Pulse oximetry 2023-01-24 20:55:00 93 /min [facility] Respiratory rate 2023-01-24 20:52:00 22 /min [facility] Systolic blood pressure 2023-01-24 20:30:00 128 mm[Hg] [facility] Diastolic blood pressure 2023-01-24 20:30:00 69 mm[Hg] [facility] Body temperature 2023-01-24 17:24:00 36.67 [facility] Body height 2023-01-24 17:24:00 177.8 cm [facility] Body weight 2023-01-24 17:24:00 72.576 kg [facility] BMI 2023-01-24 17:24:00 22.96 kg/m2 [facility] Systolic blood pressure 2023-01-24 01:00:00 129 mm[Hg] [facility] Diastolic blood pressure 2023-01-24 01:00:00 76 mm[Hg] [facility] Heart rate 2023-01-24 01:00:00 77 /min [facility] Respiratory rate 2023-01-24 01:00:00 18 /min [facility] Oxygen saturation in Arterial blood by Pulse oximetry 2023-01-24 01:00:00 99 /min [facility] Body temperature 2023-01-24 00:02:00 35.61 Tia warm blankets applied [facility] Body weight 2023-01-24 00:02:00 58.968 kg [facility] BMI 2023-01-24 00:02:00 18.65 kg/m2 [facility] Heart rate 2023-01-22 23:46:00 93 /min [facility] Respiratory rate 2023-01-22 23:46:00 20 /min [facility] Oxygen saturation in Arterial blood by Pulse oximetry 2023-01-22 23:46:00 100 /min [facility] Systolic blood pressure 2023-01-22 23:21:00 146 mm[Hg] [facility] Diastolic blood pressure 2023-01-22 23:21:00 93 mm[Hg] [facility] Body temperature 2023-01-22 23:21:00 36.72 [facility] Body weight 2023-01-22 23:21:00 58.968 kg [facility] BMI 2023-01-22 23:21:00 18.65 kg/m2 [facility] Heart rate 2023-01-21 21:57:00 84 /min [facility] Respiratory rate 2023-01-21 21:57:00 18 /min [facility] Oxygen saturation in Arterial blood by Pulse oximetry 2023-01-21 21:57:00 97 /min [facility] Systolic blood pressure 2023-01-21 21:00:00 103 mm[Hg] [facility] Diastolic blood pressure 2023-01-21 21:00:00 61 mm[Hg] [facility] Body temperature 2023-01-21 19:24:00 36.56 [facility] Body weight 2023-01-21 19:24:00 58.968 kg [facility] BMI 2023-01-21 19:24:00 18.65 kg/m2 [facility] Systolic blood pressure 2023-01-19 21:00:00 111 mm[Hg] [facility] Diastolic blood pressure 2023-01-19 21:00:00 64 mm[Hg] [facility] Heart rate 2023-01-19 21:00:00 85 /min [facility] Body temperature 2023-01-19 21:00:00 36.56 [facility] Respiratory rate 2023-01-19 21:00:00 17 /min [facility] Oxygen saturation in Arterial blood by Pulse oximetry 2023-01-19 21:00:00 98 /min [facility] Body height 2023-01-19 06:22:00 177.8 cm [facility] Body weight 2023-01-19 06:22:00 58.968 kg [facility] BMI 2023-01-19 06:22:00 18.65 kg/m2 [facility] Systolic blood pressure 2023-01-17 12:05:00 116 mm[Hg] [facility] Diastolic blood pressure 2023-01-17 12:05:00 69 mm[Hg] [facility] Heart rate 2023-01-17 12:05:00 100 /min [facility] Respiratory rate 2023-01-17 12:05:00 24 /min [facility] Oxygen saturation in Arterial blood by Pulse oximetry 2023-01-17 12:05:00 93 /min [facility] Body temperature 2023-01-17 10:59:00 35.39 [facility] Body height 2023-01-17 10:59:00 177.8 cm [facility] Body weight 2023-01-17 10:59:00 58.968 kg [facility] BMI 2023-01-17 10:59:00 18.65 kg/m2 [facility] Systolic blood pressure 2023-01-07 19:38:00 122 mm[Hg] [facility] Diastolic blood pressure 2023-01-07 19:38:00 86 mm[Hg] [facility] Heart rate 2023-01-07 19:38:00 110 /min [facility] Respiratory rate 2023-01-07 19:38:00 16 /min [facility] Body height 2023-01-07 19:38:00 177.8 cm [facility] Body weight 2023-01-07 19:38:00 59.966 kg [facility] BMI 2023-01-07 19:38:00 18.97 kg/m2 [facility] Systolic blood pressure 2022-12-26 18:00:00 118 mm[Hg] [facility] Diastolic blood pressure 2022-12-26 18:00:00 79 mm[Hg] [facility] Heart rate 2022-12-26 18:00:00 93 /min [facility] Respiratory rate 2022-12-26 18:00:00 20 /min [facility] Oxygen saturation in Arterial blood by Pulse oximetry 2022-12-26 18:00:00 95 /min [facility] Body temperature 2022-12-26 15:49:00 36.11 [facility] Body height 2022-12-26 15:49:00 177.8 cm [facility] Body weight 2022-12-26 15:49:00 72.576 kg [facility] BMI 2022-12-26 15:49:00 22.96 kg/m2 [facility] Respiratory rate 2022-12-12 16:45:00 18 /min [facility] Oxygen saturation in Arterial blood by Pulse oximetry 2022-12-12 16:45:00 99 /min [facility] Systolic blood pressure 2022-12-12 16:11:00 135 mm[Hg] [facility] Diastolic blood pressure 2022-12-12 16:11:00 80 mm[Hg] [facility] Heart rate 2022-12-12 16:11:00 77 /min [facility] Body temperature 2022-12-12 16:11:00 35.89 [facility] Body weight 2022-12-12 08:50:00 65 kg [facility] BMI 2022-12-12 08:50:00 20.56 kg/m2 [facility] Body height 2022-12-11 04:23:00 177.8 cm [facility] Heart rate 2022-12-04 12:33:00 95 /min [facility] Respiratory rate 2022-12-04 12:33:00 17 /min [facility] Oxygen saturation in Arterial blood by Pulse oximetry 2022-12-04 12:33:00 98 /min [facility] Systolic blood pressure 2022-12-04 12:20:00 125 mm[Hg] [facility] Diastolic blood pressure 2022-12-04 12:20:00 74 mm[Hg] [facility] Body temperature 2022-12-04 12:20:00 36.61 [facility] Body height 2022-12-02 05:16:00 177.8 cm [facility] Body weight 2022-12-02 05:16:00 72.576 kg [facility] BMI 2022-12-02 05:16:00 22.96 kg/m2 [facility] Systolic blood pressure 2022-12-01 13:00:00 114 mm[Hg] [facility] Diastolic blood pressure 2022-12-01 13:00:00 78 mm[Hg] [facility] Heart rate 2022-12-01 13:00:00 88 /min [facility] Respiratory rate 2022-12-01 13:00:00 20 /min [facility] Oxygen saturation in Arterial blood by Pulse oximetry 2022-12-01 13:00:00 98 /min [facility] Body temperature 2022-12-01 10:13:00 36.67 [facility] Body height 2022-12-01 10:13:00 177.8 cm [facility] Body weight 2022-12-01 10:13:00 72.576 kg [facility] BMI 2022-12-01 10:13:00 22.96 kg/m2 [facility] Systolic blood pressure 2022-11-28 17:00:00 154 mm[Hg] [facility] Diastolic blood pressure 2022-11-28 17:00:00 106 mm[Hg] [facility] Heart rate 2022-11-28 17:00:00 87 /min [facility] Respiratory rate 2022-11-28 17:00:00 23 /min [facility] Oxygen saturation in Arterial blood by Pulse oximetry 2022-11-28 17:00:00 96 /min [facility] Body temperature 2022-11-28 16:00:00 36.78 [facility] Body weight 2022-11-27 12:00:00 67.132 kg [facility] BMI 2022-11-27 12:00:00 21.24 kg/m2 [facility] Body height 2022-11-27 08:39:00 177.8 cm [facility] Systolic blood pressure 2022-11-19 10:48:00 152 mm[Hg] [facility] Diastolic blood pressure 2022-11-19 10:48:00 88 mm[Hg] [facility] Heart rate 2022-11-19 10:48:00 92 /min [facility] Respiratory rate 2022-11-19 10:48:00 16 /min [facility] Oxygen saturation in Arterial blood by Pulse oximetry 2022-11-19 10:48:00 98 /min [facility] Body temperature 2022-11-19 08:20:00 36.22 [facility] Body height 2022-11-19 08:20:00 177.8 cm [facility] Body weight 2022-11-19 08:20:00 67.132 kg [facility] BMI 2022-11-19 08:20:00 21.24 kg/m2 [facility] Systolic blood pressure 2022-11-19 02:18:57 152 mm[Hg] [facility] Diastolic blood pressure 2022-11-19 02:18:57 91 mm[Hg] [facility] Heart rate 2022-11-19 02:18:57 109 /min [facility] Respiratory rate 2022-11-19 02:18:57 22 /min [facility] Oxygen saturation in Arterial blood by Pulse oximetry 2022-11-19 02:18:57 95 /min [facility] Body temperature 2022-11-19 02:17:11 36.78 [facility] Body height 2022-11-19 00:52:00 177.8 cm [facility] Body weight 2022-11-19 00:52:00 67.132 kg [facility] BMI 2022-11-19 00:52:00 21.24 kg/m2 [facility] Heart rate 2022-11-11 17:35:00 75 /min [facility] Respiratory rate 2022-11-11 17:35:00 18 /min [facility] Oxygen saturation in Arterial blood by Pulse oximetry 2022-11-11 17:35:00 95 /min [facility] Systolic blood pressure 2022-11-11 17:25:00 130 mm[Hg] [facility] Diastolic blood pressure 2022-11-11 17:25:00 71 mm[Hg] [facility] Body temperature 2022-11-11 17:25:00 35.94 [facility] Body weight 2022-11-11 09:34:00 77.52 kg [facility] BMI 2022-11-11 09:34:00 24.52 kg/m2 [facility] Body height 2022-11-09 19:30:00 177.8 cm [facility] Systolic blood pressure 2020-12-29 15:24:00 96 mm[Hg] [facility] Diastolic blood pressure 2020-12-29 15:24:00 66 mm[Hg] [facility] Heart rate 2020-12-29 15:24:00 71 /min [facility] Body temperature 2020-12-29 15:24:00 36.33 [facility] Body weight 2020-12-29 15:24:00 72.576 kg [facility] BMI 2020-12-29 15:24:00 22.96 kg/m2 [facility] Oxygen saturation in Arterial blood by Pulse oximetry 2020-12-29 15:24:00 95 /min [facility] Systolic blood pressure 2020-12-18 19:07:00 117 mm[Hg] [facility] Diastolic blood pressure 2020-12-18 19:07:00 77 mm[Hg] [facility] Heart rate 2020-12-18 19:07:00 77 /min [facility] Body temperature 2020-12-18 19:07:00 36.22 [facility] Respiratory rate 2020-12-18 19:07:00 18 /min [facility] Body height 2020-12-18 19:07:00 177.8 cm [facility] Body weight 2020-12-18 19:07:00 73.211 kg [facility] BMI 2020-12-18 19:07:00 23.16 kg/m2 [facility] Systolic blood pressure 2020-12-12 18:00:00 109 mm[Hg] [facility] Diastolic blood pressure 2020-12-12 18:00:00 74 mm[Hg] [facility] Heart rate 2020-12-12 18:00:00 78 /min [facility] Respiratory rate 2020-12-12 18:00:00 20 /min [facility] Oxygen saturation in Arterial blood by Pulse oximetry 2020-12-12 18:00:00 96 /min [facility] Body temperature 2020-12-12 16:33:00 37.28 [facility] Body height 2020-12-12 16:33:00 177.8 cm [facility] Body weight 2020-12-12 16:33:00 70.308 kg [facility] BMI 2020-12-12 16:33:00 22.24 kg/m2 [facility] Systolic blood pressure 2020-12-08 18:55:00 125 mm[Hg] [facility] Diastolic blood pressure 2020-12-08 18:55:00 82 mm[Hg] [facility] Heart rate 2020-12-08 18:55:00 75 /min [facility] Body temperature 2020-12-08 18:55:00 36.56 [facility] Respiratory rate 2020-12-08 18:55:00 16 /min [facility] Body height 2020-12-08 18:55:00 177.8 cm [facility] Body weight 2020-12-08 18:55:00 73.12 kg [facility] BMI 2020-12-08 18:55:00 23.13 kg/m2 [facility] Systolic blood pressure 2019-05-04 04:21:00 127 mm[Hg] [facility] Diastolic blood pressure 2019-05-04 04:21:00 86 mm[Hg] [facility] Heart rate 2019-05-04 04:21:00 99 /min [facility] Respiratory rate 2019-05-04 04:21:00 26 /min [facility] Body height 2019-05-04 04:21:00 177.8 cm [facility] Body weight 2019-05-04 04:21:00 72.576 kg [facility] BMI 2019-05-04 04:21:00 22.96 kg/m2 [facility] Oxygen saturation in Arterial blood by Pulse oximetry 2019-05-04 04:21:00 99 /min [facility] Systolic blood pressure 2019-05-04 04:21:00 127 mm[Hg] [facility] Diastolic blood pressure 2019-05-04 04:21:00 86 mm[Hg] [facility] Heart rate 2019-05-04 04:21:00 99 /min [facility] Respiratory rate 2019-05-04 04:21:00 26 /min [facility] Body height 2019-05-04 04:21:00 177.8 cm [facility] Body weight 2019-05-04 04:21:00 72.576 kg [facility] BMI 2019-05-04 04:21:00 22.96 kg/m2 [facility] Oxygen saturation in Arterial blood by Pulse oximetry 2019-05-04 04:21:00 99 /min [facility] Procedures Procedure Date / Time Performed Performing Clinician Source MEDICATION CORRESPONDENCE 2023-07-08 05:01:00 Do ctor Unassigned, [facility] CONSENT/REFUSAL FOR DIAGNOSIS AND TREATMENT 2023-03-01 19:49:30 Doctor Unassigned, [place] [facility] TRANSTHORACIC ECHO (TTE) COMPLETE W/ CONTRAST 2023-02-16 13:56:56 Dedrick Toth [facility] TROPONIN I 2023-02-16 11:32:00 Dedrick Toth [facility] COMP. METABOLIC PANEL ([id number]) 2023-02-16 11:32:00 Dedrick Toth [facility] CBC WITH DIFF 2023-02-16 11:32:00 Dedrick Toth Un [facility] N-TERMINAL PRO-BNP 2023-02-16 11:32:00 Dedrick Toth [facility] URINALYSIS 2023-02-15 21:18:00 [facility]HYTHM STRIP 2023-02-15 20:15:35 Francisca Bryant [facility] XR CHEST 1 VW 2023-02-15 20:14:30 [facility] + LACTIC ACID 2023-02-15 20:02:00 Francisca Bryant [facility] MAGNESIUM 2023-02-15 20:01:00 [facility]23-02-15 20:01:00 Francisca Bryant [facility] COMP. METABOLIC PANEL ([id number]) 2023-02-15 20:01:00 Francisca Bryant [facility] CBC WITH DIFF 2023-02-15 20:01:00 Francisca Bryant [facility] ASSIGNMENT OF BENEFITS 2023-02-07 19:52:07 Docto r Unassigned, [place] [facility] CONSENT/REFUSAL FOR DIAGNOSIS AND TREATMENT 2023-02-07 19:51:03 Doctor Unassigned, [place] [facility] CONSENT/REFUSAL FOR DIAGNOSIS AND TREATMENT 2023-02-04 19:51:56 Doctor Unassigned, [place] [facility] TROPONIN I 2023-01-31 20:21:00 Rachael Flowers [facility] COMP. METABOLIC PANEL ([id number]) 2023-01-31 20:21:00 Rachael Flowers [facility] ETHANOL 2023-01-31 20:21:00 Rachael Flowers [facility] CBC WITH DIFF 2023-01-31 20:21:00 Rachael Flowers [facility] N-TERMINAL PRO-BNP 2023-01-31 20:21:00 Fernando Flowers [facility] CONSENT/REFUSAL FOR DIAGNOSIS AND TREATMENT 2023-01-31 18:39:05 Doctor Unassigned, [place] [facility] CONSENT/REFUSAL FOR DIAGNOSIS AND TREATMENT 2023-01-31 15:54:08 Doctor Unassigned, [place] [facility] CONSENT/REFUSAL FOR DIAGNOSIS AND TREATMENT 2023-01-31 14:29:18 Doctor Unassigned, [place] [facility] ACUTE CARE VENOUS BLOOD GAS 2023-01-27 10:45:00 Bessie Oswald [facility] TROPONIN I 2023-01-27 10:16:00 [facility] METABOLIC PANEL (NA, K, CL, CO2, GLUCOSE, BUN, CREATININE, CA) 2023-01-27 10:16:00 Bessie Oswald [facility] CBC WITH DIFF 2023-01-27 10:16:00 JaBessie elaine [facility] N-TERMINAL PRO-BNP 2023-01-27 10:16:00 Bessie Oswald [facility] URINALYSIS 2023-01-24 20:23:00 Stephanie [facility]mon[facility] HEAD WO CONTRAST 2023-01-24 19:38:00 Stephanie Almonte [facility] AC ABG + LACTIC ACID 2023-01-24 18:37:00 Stephanie Almonte [facility] AMMONIA, PLASMA 2023-01-24 18:19:00 Stephanie [facility]te [facility] RAPID STREP SCREEN FOR GROUP A 2023-01-24 18:19:00 Stephanie Almonte [facility] COVID-19 (ID NOW RAPID TESTING) 2023-01-24 18:19:00 Stephanie Almonte [facility] TROPONIN I 2023-01-24 17:52:00 Stephanie Almonte [facility] COMP. METABOLIC PANEL ([id number]) 2023-01-24 17:52:00 Stephanie Almonte [facility] ETHANOL 2023-01-24 17:52:00 Stephanie Almonte [facility] CBC WITH DIFF 2023-01-24 17:52:00 Stephanie Almonte [facility] N-TERMINAL PRO-BNP 2023-01-24 17:52:00 [facility] COMP. METABOLIC PANEL ([id number]) 2023-01-21 20:58:00 Singer [facility] TROPONIN I 2023-01-21 20:05:00 [facility] CBC WITH DIFF 2023-01-21 20:05:00 Singer Louis [facility] N-TERMINAL PRO-BNP 2023-01-21 20:05:00 Singer [facility] AC PANEL 21 + LACTIC ACID 2023-01-19 08:31:00 Zechariah Hack[facility] D-DIMER 2023-01-19 08:17:00 Agapito Hackett [facility] BASIC METABOLIC PANEL (NA, K, CL, CO2, GLUCOSE, BUN, CREATININE, CA) 2023-01-19 08:15:00 Iza Varma [facility] CBC WITH DIFF 2023-01-19 08:15:00 Iza Varma [facility] N-TERMINAL PRO-BNP 2023-01-19 08:15:00 Agapito Hackett [facility] EKG-12 LEAD 2023-01-17 12:23:30 Marisol Devlin [facility] XR CHEST 1 VW 2023-01-17 11:25:05 [facility]-17 11:04:00 Marisol Devlin [facility] COMP. METABOLIC PANEL (80523) 2023-01-17 11:04:00 Marisol Devlin [facility] CBC WITH DIFF 2023-01-17 11:04:00 Marisol Devlin [facility] N-TERMINAL PRO-BNP 2023-01-17 11:04:00 Marisol Devlin [facility] COMP. METABOLIC PANEL (77308) 2022-12-26 17:23:00 Iza Varma [facility] XR CHEST 1 VW 2022-12-26 16:39:21 [facility] URINE DRUG (IMMUNOASSAY) - COMPREHENSIVE DRUG SCREEN 2022-12-26 16:29:00 Iza Varma [facility] URINALYSIS 2022-12-26 16:29:00 Iza Varma [facility] CBC WITH DIFF 2022-12-26 16:28:00 [facility] MAGNESIUM 2022-12-12 08:55:00 Travis Zeng [facility] BASIC METABOLIC PANEL (NA, K, CL, CO2, GLUCOSE, BUN, CREATININE, CA) 2022-12-12 08:55:00 Travis Zeng [facility] LIPID PANEL (60532)(TOTAL CHOLESTEROL, TRIGLYCERIDES, HDL) 2022-12-12 08:55:00 Travis Zeng [facility] N-TERMINAL PRO-BNP 2022-12-12 08:55:00 Travis Zeng [facility] MAGNESIUM 2022-12-11 08:30:00 Dedrick Toth [facility] OSMOLALITY, SERUM OR PLASMA 2022-12-11 08:30:00 Dedrick Toth [facility] FREE T4 2022-12-11 08:30:00 Dedrick Toth [facility] BASIC METABOLIC PANEL (NA, K, CL, CO2, GLUCOSE, BUN, CREATININE, CA) 2022-12-11 08:30:00 Dedrick Toth [facility] CBC WITH DIFF 2022-12-11 08:30:00 [facility] 2022-12-11 08:30:00 Dedrick Toth [facility] OSMOLALITY URINE 2022-12-11 03:24:00 Dedrick Toth [facility] SODIUM, URINE RANDOM 2022-12-11 03:24:00 Gunnar Toth [facility] URINALYSIS 2022-12-11 01:15:00 Louis Hong [facility] HB ECG ROUTINE & RHYTHM STRIP 2022-12-11 00:38:04 [facility] HEAD WO CONTRAST 2022-12-11 00:32:23 Kameron Hong [facility] XR CHEST 1 VW 2022-12-11 00:29:20 Singer [facility] TROPONIN I 2022-12-11 00:08:00 [facility] COMP. METABOLIC PANEL (68433) 2022-12-11 00:08:00 Louis Hong [facility] ETHANOL 2022-12-11 00:08:00 Louis Hong [facility] CBC WITH DIFF 2022-12-11 00:08:00 Louis Hong [facility] N-TERMINAL PRO-BNP 2022-12-11 00:08:00 Louis Hong [facility] LACTIC ACID WHOLE BLOOD 2022-12-11 00:03:00 Angelita [facility] AUTHORIZATION FOR RELEASE OF PHI 2022-12-09 05:01:00 Doctor Unassigned, Candelero Abajo [facility] BASIC METABOLIC PANEL (NA, K, CL, CO2, GLUCOSE, BUN, CREATININE, CA) 2022-12-04 10:43:00 Ben [facility] CBC WITH DIFF 2022-12-04 10:43:00 Clive Contreras [facility] OSMOLALITY URINE 2022-12-03 17:05:00 Lisseth De Santiago [facility] SODIUM, URINE RANDOM 2022-12-03 17:05:00 Haley De Santiago [facility] MAGNESIUM 2022-12-03 10:20:00 Clive Contreras [facility] BASIC METABOLIC PANEL (NA, K, CL, CO2, GLUCOSE, BUN, CREATININE, CA) 2022-12-03 10:20:00 Ben [facility] CBC WITH DIFF 2022-12-03 10:20:00 Clive Contreras [facility] BASIC METABOLIC PANEL (NA, K, CL, CO2, GLUCOSE, BUN, CREATININE, CA) 2022-12-02 05:27:00 Carlo Maki [facility] CONSENT/REFUSAL FOR DIAGNOSIS AND TREATMENT 2022-12-02 05:08:30 Doctor Unassigned, Candelero Abajo [facility] HOSPITAL ADMISSION 2022-12-02 05:01:00 Doctor Un assigned, [facility]elero [facility]ajo [facility] COVID-19 (ID NOW RAPID TESTING) 2022-12-01 13:01:00 Ernesto Piper [facility] XR CHEST 1 VW 2022-12-01 12:40:25 Marisol Devlin [facility] EKG-12 LEAD 2022-12-01 12:17:26 Marisol Devlin [facility] ACUTE CARE ARTERIAL BLOOD GAS 2022-12-01 12:06:00 Marisol Devlin [facility] TROPONIN I 2022-12-01 11:51:00 Marisol Devlin [facility] BASIC METABOLIC PANEL (NA, K, CL, CO2, GLUCOSE, BUN, CREATININE, CA) 2022-12-01 11:51:00 Marisol Devlin [facility] CBC WITH DIFF 2022-12-01 11:51:00 Marisol Devlin [facility] BASIC METABOLIC PANEL (NA, K, CL, CO2, GLUCOSE, BUN, CREATININE, CA) 2022-11-28 16:51:00 Leila Chapa [facility] URIC ACID 2022-11-28 08:14:00 Reyna [facility] THYROID STIMULATING HORMONE 2022-11-28 08:14:00 Reyna [facility] BASIC METABOLIC PANEL (NA, K, CL, CO2, GLUCOSE, BUN, CREATININE, CA) 2022-11-28 08:14:00 Leila Chapa [facility] CBC WITH DIFF 2022-11-28 08:14:00 María Diaz [facility] BASIC METABOLIC PANEL (NA, K, CL, CO2, GLUCOSE, BUN, CREATININE, CA) 2022-11-28 04:16:00 María Diaz [facility] BASIC METABOLIC PANEL (NA, K, CL, CO2, GLUCOSE, BUN, CREATININE, CA) 2022-11-28 00:33:00 Leila Chapa [facility] BASIC METABOLIC PANEL (NA, K, CL, CO2, GLUCOSE, BUN, CREATININE, CA) 2022-11-27 19:55:00 María Diaz [facility] MRSA / MSSA SCREEN BY ERIKA NARANJO 2022-11-27 09:21:00 María Diaz [facility] OSMOLALITY, SERUM OR PLASMA 2022-11-27 09:10:00 María Diaz [facility] OSMOLALITY URINE 2022-11-27 09:04:00 María Diaz [facility] BASIC METABOLIC PANEL (NA, K, CL, CO2, GLUCOSE, BUN, CREATININE, CA) 2022-11-27 09:04:00 María Diaz [facility] URINE DRUG (IMMUNOASSAY) - COMPREHENSIVE DRUG SCREEN 2022-11-27 09:04:00 María Diaz [facility] URINALYSIS 2022-11-27 09:04:00 María Diaz [facility] CREATININE, URINE RANDOM 2022-11-27 09:04:00 Ben Diaz [facility] SODIUM, URINE RANDOM 2022-11-27 09:04:00 María Diaz [facility] XR CHEST 1 VW 2022-11-27 06:15:54 Bess[facility] MAGNESIUM 2022-11-27 05:33:00 María Diaz [facility] TROPONIN I 2022-11-27 05:33:00 Bessie Oswald [facility] COMP. METABOLIC PANEL ([id number]) 2022-11-27 05:33:00 Bessie Oswald [facility] ETHANOL 2022-11-27 05:33:00 Bessie Oswald [facility] CBC WITH DIFF 2022-11-27 05:33:00 Bessie Oswald [facility] GLYCOSYLATED HEMOGLOBIN (A1C) 2022-11-27 05:33:00 Leila Chapa [facility] N-TERMINAL PRO-BNP 2022-11-27 05:33:00 Bessie Oswald [facility] HB ECG ROUTINE & RHYTHM STRIP 2022-11-27 05:31:54 Bessie Oswald [facility] COMP. METABOLIC PANEL (42305) 2022-11-19 08:44:00 Iza Varma [facility] CBC WITH DIFF 2022-11-19 08:44:00 [facility] N-TERMINAL PRO-BNP 2022-11-19 08:44:00 Iza Varma [facility] BASIC METABOLIC PANEL (NA, K, CL, CO2, GLUCOSE, BUN, CREATININE, CA) 2022-11-11 10:52:00 Iza Eden [facility] CBC WITH DIFF 2022-11-11 10:52:00 Iza Eden [facility] BASIC METABOLIC PANEL (NA, K, CL, CO2, GLUCOSE, BUN, CREATININE, CA) 2022-11-11 02:16:00 [place] [facility] BASIC METABOLIC PANEL (NA, K, CL, CO2, GLUCOSE, BUN, CREATININE, CA) 2022-11-10 22:45:00 [place] [facility] BASIC METABOLIC PANEL (NA, K, CL, CO2, GLUCOSE, BUN, CREATININE, CA) 2022-11-10 17:27:00 [place] [facility] BASIC METABOLIC PANEL (NA, K, CL, CO2, GLUCOSE, BUN, CREATININE, CA) 2022-11-10 11:49:00 [place] [facility] MAGNESIUM 2022-11-10 07:14:00 Travis Zeng [facility] BASIC METABOLIC PANEL (NA, K, CL, CO2, GLUCOSE, BUN, CREATININE, CA) 2022-11-10 07:14:00 [place] [facility] CBC WITH DIFF 2022-11-10 07:14:00 [place] [facility] XR CHEST 1 VW 2022-11-09 07:53:00 Marisol Devlin [facility] LIPASE 2022-11-09 07:53:00 Marisol Devlin [facility] TROPONIN I 2022-11-09 07:53:00 Marisol Devlin [facility] COMP. METABOLIC PANEL ([id number]) 2022-11-09 07:53:00 Marisol Devlin [facility] CBC WITH DIFF 2022-11-09 07:53:00 Marisol Devlin [facility] N-TERMINAL PRO-BNP 2022-11-09 07:53:00 Marisol Devlin [facility] ACUTE CARE ARTERIAL BLOOD GAS 2022-11-09 07:50:00 Marisol Devlin [facility] HB ECG ROUTINE & RHYTHM STRIP 2022-11-09 07:39:47 Marisol Devlin [facility] ASSIGNMENT OF BENEFITS 2021-05-20 19:26:54 Duran eduardo Unassigned, [facility] POCT URINALYSIS AUTO 2020-12-18 19:04:00 Zeus [facility] ABDOMEN PELVIS W CONTRAST 2020-12-12 17:25:03 Francisca Bryant [facility] BASIC METABOLIC PANEL (NA, K, CL, CO2, GLUCOSE, BUN, CREATININE, CA) 2020-12-12 16:47:00 Francisca Bryant [facility] CBC WITH DIFF 2020-12-12 16:47:00 [facility] 2020-12-12 16:47:00 [facility]isc[facility] NOTICE OF PRIVACY PRACTICES 2020-12-12 16:28:57 Doctor Unassigned, Candelero [facility]ajo [facility] CONSENT/REFUSAL FOR DIAGNOSIS AND TREATMENT 2020-12-12 16:28:23 Doctor Unassigned, [facility]elero [facility] POCT URINALYSIS AUTO 2020-12-08 18:56:00 Jeanette Mcdaniel [facility] CONSENT/REFUSAL FOR DIAGNOSIS AND TREATMENT 2020-12-08 18:26:17 Doctor Unassigned, [facility]elero [facility] ASSIGNMENT OF BENEFITS 2020-12-08 18:25:58 Duran eduardo Unassigned, [facility] AUTHORIZATION FOR RELEASE OF PHI 2020-02-20 05:01:00 Doctor Unassigned, [facility]elero [facility] NOTICE OF PRIVACY PRACTICES 2019-05-04 04:10:29 Doctor Unassigned, [facility]elero [facility] CONSENT/REFUSAL FOR DIAGNOSIS AND TREATMENT 2019-05-04 04:10:09 Doctor Unassigned, [facility]elero [facility] Encounters Start Date/Time End Date/Time Encounter Type Admission Type Attending [facility] Care Facility Care Department Encounter ID Source 2021-07-19 08:46:33 Emergency [facility] [id number] [facility] 2023-07-21 10:00:00 2023-07-21 10:00:00 Outpatient R AUSTYN MARYNOMI CLIFTON [facility] [id number] [facility] 2023-07-15 00:00:00 2023-07-15 00:00:00 Case Management Nomi Mary [facility] 1.20.114 350.1.13.10 4.2.7.2.686 [id number] [facility] 2023-07-08 00:00:00 2023-07-08 00:00:00 [facility] 1.2.114 350.1.13.10 4.2.7.2.686 [id number] [facility] 2023-07-08 00:00:00 2023-07-08 00:00:00 Orders Only Doctor Unassigned, Candelero Abajo [facility] 1.20.114 350.1.13.10 4.2.7.2.686 [id number] [facility] 2023-04-22 00:00:00 2023-04-22 00:00:00 Outpatient R MRAY YENNIVLADISLAVYENNI CLIFTONCOTim [facility] [id number] [facility] 2023-04-19 10:00:00 2023-04-19 10:53:24 Outpatient R NOMI [facility]ARY [facility] [id number] [facility] 2023-04-19 10:00:00 2023-04-19 10:53:24 Office Visit Mathew Yenninhtim [facility] 1.2.114 350.1.13.10 4.2.7.2.686 [id number] [facility] 2023-04-19 00:00:00 2023-04-19 00:00:00 Patient Outreach Marika Monge 1.2.114 350.1.13.10 4.2.7.2.686 [id number] [facility] 2023-03-01 16:30:00 2023-03-01 17:00:00 [facility] 1.284.114 350.1.13.10 4.2.7.2.686 [id number] [facility] 2023-03-01 16:30:00 2023-03-01 16:30:00 Outpatient R ADRIANO [facility] [id number] [facility] 2023-03-01 00:00:00 2023-03-01 00:00:00 Orders Only Doctor Unassigned, Candelero Abajo [facility] 1..114 350.1.13.10 4.2.7.2.686 [id number] [facility] 2023-03-01 00:00:00 2023-03-01 00:00:00 Refill Mily Goodwin [facility] 1.84.114 350.1.13.10 4.2.7.2.686 [id number] [facility] 2023-02-21 00:00:00 2023-02-21 00:00:00 Transition of Care Taylor Frye 1.2114 350.1.13.10 4.2.7.2.686 [id number] [facility] 2023-02-15 14:41:00 2023-02-18 16:11:00 Inpatient X TRAVIS ZENG [facility] [id number] [facility] 2023-02-15 14:41:00 2023-02-18 16:11:00 Hospital Encounter Iza Varma Sandra J Oville, Jelani [facility] 1.2.114 350.1.13.10 4.2.7.2.686 [id number] [facility] 2023-02-07 14:30:00 2023-02-07 16:01:00 Emergency X PRADIP AUSTIN [facility] ERT [id number] [facility] 2023-02-07 14:30:00 2023-02-07 16:01:[address] [facility] 1.2.840.114 350.1.13.10 4.2.7.2.686 [id number] [facility] 2023-02-07 10:20:00 2023-02-07 10:20:00 Outpatient CARL ALDRIDGE CHRISTINE [facility] [id number] [facility] 2023-02-05 14:53:00 2023-02-05 16:10:00 Emergency X CHOHERMINIA [facility] ERT [id number] [facility] 2023-02-05 14:53:00 2023-02-05 16:10:[address] [facility] 1.2.840.114 350.1.13.10 4.2.7.2.686 [id number] [facility] 2023-02-04 15:26:00 2023-02-04 16:25:00 Emergency X FRANCISCA BRYANT [facility] ERT [id number] [facility] 2023-02-04 15:26:00 2023-02-04 16:25:[address] [facility] 1.2.840.114 350.1.13.10 4.2.7.2.686 [id number] [facility] 2023-02-03 17:46:00 2023-02-03 18:47:00 Emergency X LOUIS HONG [facility] ERT [id number] [facility] 2023-02-03 17:46:00 2023-02-03 18:47:00 Emergency X LOUIS HONG [facility] ERT [id number] [facility] 2023-02-03 17:46:00 2023-02-03 18:47:[address] [facility] 1.2.840.114 350.1.13.10 4.2.7.2.686 [id number] [facility] 2023-02-03 12:43:00 2023-02-03 15:04:[address] [facility] 1.2.840.114 350.1.13.10 4.2.7.2.686 [id number] [facility] 2023-02-02 16:49:00 2023-02-02 18:10:00 Emergency X LOUIS HONG [facility] ERT [id number] [facility] 2023-02-02 16:49:00 2023-02-02 18:10:[address] [facility] 1.2.840.114 350.1.13.10 4.2.7.2.686 [id number] [facility] 2023-01-31 13:55:00 2023-01-31 16:50:00 Emergency X RACHAEL FLOWERS [facility] ERT [id number] [facility] 2023-01-31 13:55:00 2023-01-31 16:50:00 Emergency X RACHAEL FLOWERS [facility] ERT [id number] [facility] 2023-01-31 13:55:00 2023-01-31 16:50:[address] [facility] 1.2.840.114 350.1.13.10 4.2.7.2.686 [id number] [facility] 2023-01-31 11:11:00 2023-01-31 12:12:00 Emergency X LEOBARDO SLOAN [facility] ERT [id number] [facility] 2023-01-31 11:11:00 2023-01-31 12:12:[address] [facility] 1.2.840.114 350.1.13.10 4.2.7.2.686 [id number] [facility] 2023-01-31 09:51:00 2023-01-31 10:16:[address] [facility] 1.2.840.114 350.1.13.10 4.2.7.2.686 [id number] [facility] 2023-01-29 08:08:00 2023-01-29 10:00:00 Emergency X HERMINIA CHO [facility] ERT [id number] [facility] 2023-01-29 08:08:00 2023-01-29 10:00:[address] [facility] 1.2.840.114 350.1.13.10 4.2.7.2.686 [id number] [facility] 2023-01-27 04:50:00 2023-01-27 07:03:00 Emergency X SIMONEBESSIE Chandler [facility] ERT [id number] [facility] 2023-01-27 04:50:00 2023-01-27 07:03:[address] [facility] 1.2.840.114 350.1.13.10 4.2.7.2.686 [id number] [facility] 2023-01-27 00:00:00 2023-01-27 00:00:00 Telephone Nomi Mary [facility] 1.2.840.114 350.1.13.10 4.2.7.2.686 [id number] [facility] 2023-01-24 12:28:00 2023-01-24 16:16:00 Emergency X STEPHANIE ALMONTE [facility] ERT [id number] [facility] 2023-01-24 12:28:00 2023-01-24 16:16:[address] [facility] 1.2.840.114 350.1.13.10 4.2.7.2.686 [id number] [facility] 2023-01-23 19:02:00 2023-01-23 20:36:00 Emergency X IZA VARMA [facility] ERT [id number] [facility] 2023-01-23 19:02:00 2023-01-23 20:36:[address] [facility] 1.2.840.114 350.1.13.10 4.2.7.2.686 [id number] [facility] 2023-01-22 18:24:00 2023-01-22 19:55:00 Emergency X IZA VARMA [facility] ERT [id number] [facility] 2023-01-22 18:24:00 2023-01-22 19:55:[address] [facility] 1.2.840.114 350.1.13.10 4.2.7.2.686 [id number] [facility] 2023-01-21 14:20:00 2023-01-21 18:14:00 Emergency LOUIS THOMPSON [facility] ERT [id number] [facility] 2023-01-21 14:20:00 2023-01-21 18:14:[address] [facility] 1.2.840.114 350.1.13.10 4.2.7.2.686 [id number] [facility] 2023-01-20 00:00:00 2023-01-20 00:00:00 Transition of Care Taylor Frye 1.2.840.114 350.1.13.10 4.2.7.2.686 [id number] [facility] 2023-01-19 01:15:00 2023-01-19 19:40:00 Hospital Encounter [facility] , Kathia Varma, Iza Hackett, María Escobar [facility] 1.2.840.114 350.1.13.10 4.2.7.2.686 [id number] [facility] 2023-01-17 05:57:00 2023-01-17 07:37:00 Emergency X MARISOL DEVLIN [facility] ERT [id number] [facility] 2023-01-17 05:57:00 2023-01-17 07:37:[address] [facility] 1.2.840.114 350.1.13.10 4.2.7.2.686 [id number] [facility] 2023-01-17 05:57:00 2023-01-17 07:37:00 Emergency X MARISOL DEVLIN [facility] ERT [id number] [facility] 2023-01-10 00:00:00 2023-01-10 00:00:00 Letter (Out) Herminia Oh [facility] 1..840.114 350.1.13.10 4.2.7.2.686 [id number] [facility] 2023-01-07 14:30:00 2023-01-07 15:25:56 Outpatient R HERMINIA OH [facility] [id number] [facility] 2023-01-07 14:30:00 2023-01-07 15:25:56 Office Visit Herminia Oh [facility] 1.840.114 350.1.13.10 4.2.7.2.686 [id number] [facility] 2022-12-26 10:50:00 2022-12-26 14:12:00 Emergency X IZA VARMA [facility] ERT [id number] [facility] 2022-12-26 10:50:00 2022-12-26 14:12:00 Emergency Iza Varma [facility] 1.84.114 350.1.13.10 4.2.7.2.686 [id number] [facility] 2022-12-14 11:30:00 2022-12-14 11:30:00 Outpatient R NOMI MARY SHICOTim [facility] [id number] [facility] 2022-12-14 00:00:00 2022-12-14 00:00:00 Transition of Care Taylor Frye [facility] 1.840.114 350.1.13.10 4.2.7.2.686 [id number] [facility] 2022-12-10 18:49:00 2022-12-12 14:35:00 Outpatient X TRAVIS ZENG [facility] [id number] [facility] 2022-12-10 18:49:00 2022-12-12 14:35:00 Hospital Encounter Louis Hong Mohammad A. Oville, Jelani [facility] 1.840.114 350.1.13.10 4.2.7.2.686 [id number] [facility] 2022-12-10 00:00:00 2022-12-10 00:00:00 Case Management Nomi Mary [facility] 1.2.840.114 350.1.13.10 4.2.7.2.686 [id number] [facility] 2022-12-10 00:00:00 2022-12-10 00:00:00 Transition of Care Cecy Caro 1.2.840.114 350.1.13.10 4.2.7.2.686 [id number] [facility] 2022-12-09 00:00:00 2022-12-09 00:00:00 Orders Only Doctor Unassigned, [place] [facility] 1.2.840.114 350.1.13.10 4.2.7.2.686 [id number] [facility] 2022-12-06 00:00:00 2022-12-06 00:00:00 Transition of Care Taylor Frye 1.2.840.114 350.1.13.10 4.2.7.2.686 [id number] [facility] 2022-12-02 00:13:00 2022-12-04 12:30:00 Hospital Encounter Carlo Maki, Abi Contreras, [facility] ([facility]) 1.2.840.114 350.1.13.10 4.2.7.2.686 [id number] [facility] 2022-12-01 05:32:00 2022-12-01 09:08:00 Emergency ERNESTO SHANE [facility] ERT [id number] [facility] 2022-12-01 05:32:00 2022-12-01 09:08:00 Emergency Marisol Devlin Charles Davis, Elizabeth [facility] 1.2.840.114 350.1.13.10 4.2.7.2.686 [id number] [facility] 2022-12-01 05:32:00 2022-12-01 09:08:00 Emergency U ERNESTO PIPER [facility] ERT [id number] [facility] 2022-11-26 22:55:00 2022-11-28 13:50:00 Outpatient X DHARMESH LEILA [facility] PARRISH [id number] [facility] 2022-11-26 22:55:00 2022-11-28 13:50:00 Hospital Encounter Bessie Oswald David Abdullah, Yaman [facility] 1.840.114 350.1.13.10 4.2.7.2.686 [id number] [facility] 2022-11-19 02:17:00 2022-11-19 05:12:00 Emergency [facility] [facility] [id number] [facility] 2022-11-19 02:17:00 2022-11-19 05:12:00 Emergency Sandro Varmaosbaldo Chandler [facility] 1.840.114 350.1.13.10 4.2.7.2.686 [id number] [facility] 2022-11-18 18:52:00 2022-11-18 20:29:00 Emergency X FRANCISCA BRYANT [facility] ERT [id number] [facility] 2022-11-18 18:52:00 2022-11-18 20:29:[address] [facility] 1.2840.114 350.1.13.10 4.2.7.2.686 [id number] [id number] [facility] 2022-11-17 00:00:00 2022-11-17 00:00:00 Telephone Nomi [facility] 1.2840.114 350.1.13.10 4.2.7.2.686 [id number] [id number] [facility] 2022-11-12 00:00:00 2022-11-12 00:00:00 Transition of Care Frye Taylor B GARY GIORDANO 1.2840.114 350.1.13.10 4.2.7.2.686 [id number] [facility] 2022-11-09 01:32:00 2022-11-11 13:35:00 Inpatient X DAVEYRADHA TRAVIS [facility] PARRISH [id number] [facility] 2022-11-09 01:32:00 2022-11-11 13:35:00 Hospital Encounter [facility] 1.2840.114 350.1.13.10 4.2.7.2.686 [id number] [id number] [facility] 2021-05-22 00:00:00 2021-05-22 00:00:00 Telephone Jeanette Mcdaniel [facility] 1.20.114 350.1.13.10 4.2.7.2.686 [id number] [facility] 2021-05-20 14:28:38 2021-05-20 14:43:38 Cartography Supervisor Visit Pob, Adc Lab Main Jimy [facility] 1.20.114 350.1.13.10 4.2.7.2.686 [id number] [facility] 2021-05-20 14:30:00 2021-05-20 14:30:00 [facility] [id number] 2021-05-20 00:00:00 2021-05-20 00:00:00 Orders Only Doctor Unassigned, [place] Abajo [facility] 1.20.114 350.1.13.10 4.2.7.2.686 [id number] [facility] 2021-05-20 00:00:00 2021-05-20 00:00:00 [facility] 1.2.840.114 350.1.13.10 4.2.7.2.686 [id number] [facility] 2020-12-29 10:12:45 2020-12-29 11:07:51 Office Visit JimyGokul [facility] Building 1.2.840.114 350.1.13.10 4.2.7.2.686 [id number] [facility] 2020-12-29 10:15:00 2020-12-29 10:15:00 Outpatient R GOKUL TURNER [facility] [id number] [facility] 2020-12-18 13:36:17 2020-12-18 14:58:35 Office Visit Gokul uTrner Rm, Adc Surg Spec Procedure [facility] Building 1.2.840.114 350.1.13.10 4.2.7.2.686 [id number] [facility] 2020-12-18 14:00:00 2020-12-18 14:00:00 Outpatient R GOKUL TURNER [facility] [id number] [facility] 2020-12-16 00:00:00 2020-12-16 00:00:00 Outpatient R JEANETTE MCDANIEL [facility] [id number] [facility] 2020-12-16 00:00:00 2020-12-16 00:00:00 Telephone Jeanette Mcdaniel [facility] Building 1.2.840.114 350.1.13.10 4.2.7.2.686 [id number] [facility] 2020-12-12 11:36:00 2020-12-12 13:42:00 Emergency SylvainFrancisca Trina [facility] 1.2.840.114 350.1.13.10 4.2.7.2.686 [id number] 084 [id number] [facility] 2020-12-12 00:00:00 2020-12-12 00:00:00 Telephone Jeanette Mcdaniel [facility] 1.2.840.114 350.1.13.10 4.2.7.2.686 [id number] [facility] 2020-12-08 13:28:10 2020-12-08 14:09:14 Office Visit Jeanette Mcdaniel [facility] 1.2.840.114 350.1.13.10 4.2.7.2.686 [id number] [facility] 2020-12-08 13:30:00 2020-12-08 13:30:00 Outpatient R YUNG MCDANIELELA [facility] [id number] [facility] 2020-12-08 00:00:00 2020-12-08 00:00:00 Orders Only Doctor Unassigned, [place] [facility] 1.2840.114 350.1.13.10 4.2.7.2.686 [id number] 009 [id number] [facility] 2020-12-07 00:00:00 2020-12-07 00:00:00 Nurse Triage Herminia Perez [facility] 1.2.840.114 350.1.13.10 4.2.7.2.686 [id number] [facility] 2020-02-20 00:00:00 2020-02-20 00:00:00 Orders Only Doctor Unassigned, [place] [facility] 1.2.840.114 350.1.13.10 4.2.7.2.686 [id number] 009 [id number] 2020-02-20 00:00:00 2020-02-20 00:00:00 Orders Only Doctor Unassigned, [place] [facility] 1.2.840.114 350.1.13.10 4.2.7.2.686 [id number] [id number] [facility] 2019-08-28 08:25:33 2019-08-28 11:54:00 Emergency X HERMINIA CHO [facility] ERT [id number] [facility] 2019-08-24 01:43:17 2019-08-24 03:52:00 Emergency X LOUIS HONG [facility] ERT [id number] [facility] 2019-05-03 23:28:18 2019-05-04 00:27:00 Emergency Ramesh Encinas [facility] 1.2.840.114 350.1.13.10 4.2.7.2.686 [id number] [id number] [facility] 2019-05-03 23:28:18 2019-05-04 00:27:00 Emergency Ramesh Encinas [facility] 1.2.840.114 350.1.13.10 4.2.7.2.686 [id number] [id number] 2019-05-03 00:00:00 2019-05-03 00:00:00 Orders Only Doctor Unassigned, [place]ajo [facility] 1.2.840.114 350.1.13.10 4.2.7.2.686 [id number] [id number] [facility] 2019-05-03 00:00:00 2019-05-03 00:00:00 Orders Only Doctor Unassigned, [place] [facility] 1.2.840.114 350.1.13.10 4.2.7.2.686 [id number] [id number] Results Test Description Test Time Test Comments Results Result Co mments [facility] (80848)2023-02-15 21:00:57* Test Item Value Reference Range Interpretation Comme nts NA (test code = 6809399882) 133 mmol/L 135-145 L K (test code = 6498704800) 4.5 mmol/L 3.5-5.0 CL (test code = 8646608024) 90 mmol/L 98-108 L CO2 TOTAL (test code = 0123909215) 40 mmol/L 23-31 H AGAP (test code = 6072109598) 3 2-16 BUN (test code = 9756987220) 25 mg/dL 7-23 H GLUCOSE (test code = 7611281700) 107 mg/dL 70-110 CREATININE (test code = 7592180601) 0.88 mg/dL 0.60-1.25 TOTAL BILI (test code = 0884208072) 1.6 mg/dL 0.1-1.1 H CALCIUM (test code = 3780538704) 8.9 mg/dL 8.6-10.6 T PROTEIN (test code = 1018667060) 6.1 g/dL 6.3-8.2 L ALBUMIN (test code = 1420128940) 3.7 g/dL 3.5-5.0 ALK PHOS (test code = 2919187951) 56 U/L 34-122 ALTv (test code = 1742-6) 14 U/L 5-50 AST(SGOT) (test code = 6247433338) 12 U/L 13-40 L eGFR (test code = 6567592565) 87.2 mL/min/1.73m2 OMAYRA (test code = OMAYRA) [...] imaging tests). Lab Interpretation (test code = 21589-2) [facility] 21:00:57* Test Item Value Reference Range Interpretation Comme nts MAGNESIUM (test code = 6878196128) 2.0 mg/dL 1.7-2.4 Lab Interpretation (test cod e = 73336-7) Normal [facility] WITH [id number] 20:53:39* Test Item Value Reference Range Interpretation Comme nts WBC (test code = 6690-2) 9.03 See_Comment [Automated Linkurious] The system which generated this result transmitted reference range: 4.20 - 10.70 10*3/?L. The reference range was not used to interpret this result as normal/abnormal. RBC (test code = 789-8) 4.50 See_Comment [Automated Linkurious] The system which generated this result transmitted [...] 33.0 g/dL 31.2-35.0 RDW-SD (test code = 94222-2) 50.1 fL 38.5-51.6 RDW-CV (test code = 788-0) 13.6 % 12.1-15.4 PLT (test code = 777-3) 223 See_Comment [Automated messa ge] The system which generated this result transmitted reference range: 150 - 328 10*3/?L. The reference range was not used to interpret this result as normal/abnormal. MPV (test code = 47121-1) 12.1 fL 9.8-13.0 NRBC/100 WBC (test code = 7684402690) 0.0 See_Comment [Automated Paydiant ssage] The system which generated this result transmitted reference range: 0.0 - 10.0 /100 WBCs. The reference range was not used to interpret this result as normal/abnormal. NRBC x10^3 (test code = 5149164451) See_Comment [Automated messa ge] The system which generated this result transmitted reference range: 10*3/?L. The reference range was not used to interpret this result as normal/abnormal. GRAN MAT (NEUT) % (test code = 770-8) 72.8 % IMM GRAN % (test code = 7479590882) 0.90 % LYMPH % (test code = 736-9) 17.7 % MONO % (test code = 5905-5) 7.4 % EOS % (test code = 713-8) 0.9 % BASO % (test code = 706-2) 0.3 % GRAN MAT x10^3(ANC) (test code = 3135305890) 6.57 10*3/uL 1.99-6.95 IMM GRAN x10^3 (test code = 1637365863) 0.08 10*3/uL 0.00-0.06 H LYMPH x10^3 (test code = 731-0) 1.60 10*3/uL 1.09-3.23 MONO x10^3 (test code = 742-7) 0.67 10*3/uL 0.36-1.02 EOS x10^3 (test code = 711-2) 0.08 10*3/uL 0.06-0.53 BASO x10^3 (test code = 704-7) 0.03 10*3/uL 0.01-0.09 Lab Interpretation (test code = 03042-9) [facility] + LACTIC [id number] 20:11:20* Test Item Value Reference Range Interpretation Comme nts PH (test code = 0712638998) 7.33 7.32-7.42 PCO2 ERVIN (test code = 0848687107) 75 See_Comment H [Automated messa ge] The system which generated this result transmitted reference range: 41 - 51 mmHg. The reference range was not used to interpret this result as normal/abnormal. PO2 ERVIN (test code = 8246179723) 20 See_Comment L [Automated messa ge] The system which generated this result transmitted reference range: 25 - 40 mmHg. The reference range was not used to interpret this result as normal/abnormal. HCO3 ERVIN (test code = 2458221757) 39 See_Comment H [Automated messa ge] The system which generated this result transmitted reference range: 24 - 28 mEq/L. The reference range was not used to interpret this result as normal/abnormal. AC VBE(BEAKER) (test code = 7558149884) 9.1 mEq/L THB ERVIN (test code = 4530102167) 15.9 g/dL 13.5-18.0 %O2HB ERVIN (test code = 0494370127) 30.0 % 52.0-63.0 L %COHB ERVIN (test code = 0166915438) 4.1 % 0.0-1.5 H %METHB ERVIN (test code = 7528037918) 0.3 % 0.4-1.5 L VOL%O2 ERVIN (test code = 8318246794) 6.7 % 6.0-12.0 NA (test code = 9690618422) 137 mmol/L 135-145 K+ (test code = 1845961528) 4.5 mmol/L 3.5-5.0 AC CA IONZ (test code = 3331490876) 4.60 mg/dL 4.50-5.30 GLUCOSE (test code = 2791325385) 113 mg/dL 70-110 H LACTIC ACID (test code = 3128976984) 1.65 mmol/L 0.50-2.20 Lab Interpretation (test code = 84120-6) [facility]normal [facility] [id number] 21:20:05* Test Item Value Reference Range Interpretation Comme nts TROPONIN I (test code = 9591344414) 0.005 ng/mL <=0.034 OMAYRA (test code = [...] of biotin. Lab Interpretation (test code = 98055-9) Normal [facility] [id number] 21:17:24* Test Item Value Reference Range Interpretation Comme nts NT-proBNP (test code = 7716686201) 712 pg/mL <=125 H OMAYRA (test code = OMAYRA) Biotin has been reported to cause a negative bias, interpret results relative to patient's use of biotin. Lab Interpretation (test code = 45977-4) Abnormal [facility]2023-[facility]-15 21:13:47 ALCOHOL<10mg/dL01/31/2023 4:[address] [facility]<10 Usqrjfvi52-220 Toxic>100 Depression of CYBER INCIDENT ANALYST>400 Fatalities [facility]ortedUniversity HospitalCOM. METABOLIC PANEL (69090)2023-01-31 21:10:01* Test Item Value Reference Range Interpretation Comme nts NA (test code = 5201113607) 142 mmol/L 135-145 K (test code = 5480340802) 4.7 mmol/L 3.5-5.0 CL (test code = 7045017452) 99 mmol/L 98-108 CO2 TOTAL (test code = 4152168319) 37 mmol/L 23-31 H AGAP (test code = 1571734710) 6 2-16 BUN (test code = 3326408848) 30 mg/dL 7-23 H GLUCOSE (test code = 0668095181) 100 mg/dL 70-110 CREATININE (test code = 7053585487) 0.61 mg/dL 0.60-1.25 TOTAL BILI (test code = 8942680581) 0.6 mg/dL 0.1-1.1 CALCIUM (test code = 2221621144) 8.8 mg/dL 8.6-10.6 T PROTEIN (test code = 9344184608) 5.9 g/dL 6.3-8.2 L ALBUMIN (test code = 6330238288) 3.5 g/dL 3.5-5.0 ALK PHOS (test code = 4635208612) 42 U/L 34-122 ALTv (test code = 1742-6) 16 U/L 5-50 AST(SGOT) (test code = 2034345889) 12 U/L 13-40 L eGFR (test code = 5614722232) 133.1 mL/min/1.73m2 OMAYRA (test code = OMAYRA) [...] imaging tests). Lab Interpretation (test code = 64657-4) Abnormal [facility] WITH [id number] 20:59:58* Test Item Value Reference Range Interpretation [...] g/dL 31.2-35.0 L RDW-SD (test code = 83939-9) 61.6 fL 38.5-51.6 H RDW-CV (test code = 788-0) 16.2 % 12.1-15.4 H PLT (test code = 777-3) 250 See_Comment [Automated message] The system which generated this result transmitted reference range: 150 - 328 10*3/?L. The reference range was not used to interpret this result as normal/abnormal. MPV (test code = 08746-9) 10.5 fL 9.8-13.0 NRBC/100 WBC (test code = 3164019869) 0.0 See_Comment [Automated message] The system which generated this result transmitted reference range: 0.0 - 10.0 /100 WBCs. The reference range was not used to interpret this result as normal/abnormal. NRBC x10^3 (test code = 6567743520) See_Comment [Automated message] The system which generated this result transmitted reference range: 10*3/?L. The reference range was not used to interpret this result as normal/abnormal. GRAN MAT (NEUT) % (test code = 770-8) 90.9 % IMM GRAN % (test code = 0412178634) 1.20 % LYMPH % (test code = 736-9) 3.9 % MONO % (test code = 5905-5) 3.8 % EOS % (test code = 713-8) 0.0 % BASO % (test code = 706-2) 0.2 % GRAN MAT x10^3(ANC) (test code = 6941056560) 11.83 10*3/uL 1.99-6.95 H IMM GRAN x10^3 (test code = 2813362557) 0.16 10*3/uL 0.00-0.06 H LYMPH x10^3 (test code = 731-0) 0.51 10*3/uL 1.09-3.23 L MONO x10^3 (test code = 742-7) 0.49 10*3/uL 0.36-1.02 EOS x10^3 (test code = 711-2) 0.06-0.53 L BASO x10^3 (test code = 704-7) 0.03 10*3/uL 0.01-0.09 Lab Interpretation (test code = 42059-1) Abnormal [facility] [id number] 11:16:36* Test Item Value Reference Range Interpretation Comme nts TROPONIN I (test code = 3851733781) 0.002 ng/mL <=0.034 OMAYRA (test code = [...] of biotin. Lab Interpretation (test code = 70336-9) Normal [facility] [id number] 11:13:18* Test Item Value Reference Range Interpretation Comme nts NT-proBNP (test code = 4439684009) 112 pg/mL <=125 OMAYRA (test code = OMAYRA) Biotin has been reported to cause a negative bias, interpret results relative to patient's use of biotin. Lab Interpretation (test code = 44030-8) Normal [facility] METABOLIC PANEL (NA, K, CL, CO2, GLUCOSE, BUN, CREATININE, CA)2023-01-27 11:04:56* Test Item Value Reference Range Interpretation Comme nts NA (test code = 2437820461) 136 mmol/L 135-145 K (test code = 8816096685) 4.1 mmol/L 3.5-5.0 CL (test code = 9499235941) 96 mmol/L 98-108 L CO2 TOTAL (test code = 6888278661) 34 mmol/L 23-31 H AGAP (test code = 6659695872) 6 2-16 BUN (test code = 2464166930) 22 mg/dL 7-23 GLUCOSE (test code = 8569651109) 117 mg/dL 70-110 H CREATININE (test code = 3467227088) 0.55 mg/dL 0.60-1.25 L CALCIUM (test code = 2571793476) 8.4 mg/dL 8.6-10.6 L eGFR (test code = 6464054343) 150.0 mL/min/1.73m2 OMAYRA (test code = OMAYRA) [...] imaging tests). Lab Interpretation (test code = 11437-4) Abnormal [facility] WITH [id number] 10:38:33* Test Item Value Reference Range Interpretation Comme nts WBC (test code = 6690-2) 9.56 See_Comment [Automated Linkurious] The system which generated this result transmitted reference range: 4.20 - 10.70 10*3/?L. The reference range was not used to interpret this result as normal/abnormal. RBC (test code = 789-8) 4.31 See_Comment [Automated Linkurious] The system which generated this result transmitted [...] 31.8 g/dL 31.2-35.0 RDW-SD (test code = 99340-3) 56.7 fL 38.5-51.6 H RDW-CV (test code = 788-0) 15.3 % 12.1-15.4 PLT (test code = 777-3) 220 See_Comment [Automated Linkurious] The system which generated this result transmitted reference range: 150 - 328 10*3/?L. The reference range was not used to interpret this result as normal/abnormal. MPV (test code = 05232-7) 10.6 fL 9.8-13.0 NRBC/100 WBC (test code = 7854717112) 0.0 See_Comment [Automated me ssage] The system which generated this result transmitted reference range: 0.0 - 10.0 /100 WBCs. The reference range was not used to interpret this result as normal/abnormal. NRBC x10^3 (test code = 9112838946) See_Comment [Automated messa ge] The system which generated this result transmitted reference range: 10*3/?L. The reference range was not used to interpret this result as normal/abnormal. GRAN MAT (NEUT) % (test code = 770-8) 60.0 % IMM GRAN % (test code = 2925221304) 0.70 % LYMPH % (test code = 736-9) 26.5 % MONO % (test code = 5905-5) 11.4 % EOS % (test code = 713-8) 0.9 % BASO % (test code = 706-2) 0.5 % GRAN MAT x10^3(ANC) (test code = 0568575537) 5.73 10*3/uL 1.99-6.95 IMM GRAN x10^3 (test code = 1316639836) 0.07 10*3/uL 0.00-0.06 H LYMPH x10^3 (test code = 731-0) 2.53 10*3/uL 1.09-3.23 MONO x10^3 (test code = 742-7) 1.09 10*3/uL 0.36-1.02 H EOS x10^3 (test code = 711-2) 0.09 10*3/uL 0.06-0.53 BASO x10^3 (test code = 704-7) 0.05 10*3/uL 0.01-0.09 Lab Interpretation (test code = 41862-4) Abnormal [facility], [id number] 18:51:59* Test Item Value Reference Range Interpretation Comme nts AMMONIA (test code = 6832688343) 9-33 L Lab Interpretation (test cod e = 15585-5) Abnormal [facility] ABG + LACTIC [id number] 18:40:53* Test Item Value Reference Range Interpretation Comme nts PH (test code = 2) 7.43 7.35-7.45 PCO2 (test code = 8920817968) 53 See_Comment H [Automated messa ge] The system which generated this result transmitted reference range: 35 - 45 mmHg. The reference range was not used to interpret this result as normal/abnormal. PO2 (test code = 6033417988) 49 See_Comment L [Automated messa ge] The system which generated this result transmitted reference range: 80 - 100 mmHg. The reference range was not used to interpret this result as normal/abnormal. HCO3 (test code = 3004611559) 34 See_Comment H [Automated messa ge] The system which generated this result transmitted reference range: 22 - 26 mEq/L. The reference range was not used to interpret this result as normal/abnormal. BE (test code = 5050280279) 7.8 See_Comment H [Automated messa ge] The system which generated this result transmitted reference range: -3.0 - 3.0 mEq/L. The reference range was not used to interpret this result as normal/abnormal. LACTIC ACID (test code = 0144304370) 0.92 mmol/L 0.50-2.20 Lab Interpretation (test code = 17099-3) Abnormal [facility] [id number] 18:28:26* Test Item Value Reference Range Interpretation Comme nts TROPONIN I (test code = 9611605020) 0.003 ng/mL <=0.034 OMAYRA (test code = [...] of biotin. Lab Interpretation (test code = 49160-0) Normal [facility]-TERMINAL [id number] 18:25:29* Test Item Value Reference Range Interpretation Comme nts NT-proBNP (test code = 4472853470) 376 pg/mL <=125 H OMAYRA (test code = OMAYRA) Biotin has been reported to cause a negative bias, interpret results relative to patient's use of biotin. Lab Interpretation (test code = 65881-1) Abnormal [facility] Metabolic Panel (56621)2023-01-24 18:24:03* Test Item Value Reference Range Interpretation Comme nts NA (test code = 6219531832) 135 mmol/L 135-145 K (test code = 7651168107) 4.0 mmol/L 3.5-5.0 CL (test code = 7311194855) 90 mmol/L 98-108 L CO2 TOTAL (test code = 7764978226) 43 mmol/L 23-31 H AGAP (test code = 9677493389) 2 2-16 BUN (test code = 6811026625) 12 mg/dL 7-23 GLUCOSE (test code = 4522423221) 92 mg/dL 70-110 CREATININE (test code = 8740344434) 0.58 mg/dL 0.60-1.25 L TOTAL BILI (test code = 5233222132) 1.3 mg/dL 0.1-1.1 H CALCIUM (test code = 9223172485) 8.6 mg/dL 8.6-10.6 T PROTEIN (test code = 7260993922) 6.0 g/dL 6.3-8.2 L ALBUMIN (test code = 6482532987) 3.6 g/dL 3.5-5.0 ALK PHOS (test code = 8715261736) 52 U/L 34-122 ALTv (test code = 1742-6) 17 U/L 5-50 AST(SGOT) (test code = 6637595154) 10 U/L 13-40 L eGFR (test code = 8821533609) 141.1 mL/min/1.73m2 OMAYRA (test code = OMAYRA) [...] imaging tests). Lab Interpretation (test code = 74569-8) [facility]normal [facility] 18:23:38 ALCOHOL<10mg/dL01/24/2023 1:[address] [facility]<10 Zniubnwp47-062 Toxic>100 Depression of CYBER INCIDENT ANALYST>400 [facility] with Udcmijozpzuf1009-99-71 18:09:00* Test Item Value Reference Range Interpretation Comme nts WBC (test code = 6690-2) 7.84 See_Comment [Automated Linkurious] The system which generated this result transmitted reference range: 4.20 - 10.70 10*3/?L. The reference range was not used to interpret this result as normal/abnormal. RBC (test code = 789-8) 4.46 See_Comment [Automated Linkurious] The system which generated this result transmitted [...] g/dL 31.2-35.0 L RDW-SD (test code = 10538-5) 59.7 fL 38.5-51.6 H RDW-CV (test code = 788-0) 15.8 % 12.1-15.4 H PLT (test code = 777-3) 239 See_Comment [Automated Source Audioa ge] The system which generated this result transmitted reference range: 150 - 328 10*3/?L. The reference range was not used to interpret this result as normal/abnormal. MPV (test code = 49607-3) 10.5 fL 9.8-13.0 NRBC/100 WBC (test code = 2901199086) 0.0 See_Comment [Automated Paydiant ssage] The system which generated this result transmitted reference range: 0.0 - 10.0 /100 WBCs. The reference range was not used to interpret this result as normal/abnormal. NRBC x10^3 (test code = 7055337784) See_Comment [Automated Source Audioa ge] The system which generated this result transmitted reference range: 10*3/?L. The reference range was not used to interpret this result as normal/abnormal. GRAN MAT (NEUT) % (test code = 770-8) 64.5 % IMM GRAN % (test code = 6393126958) 0.40 % LYMPH % (test code = 736-9) 23.1 % MONO % (test code = 5905-5) 9.8 % EOS % (test code = 713-8) 1.8 % BASO % (test code = 706-2) 0.4 % GRAN MAT x10^3(ANC) (test code = 0734366240) 5.06 10*3/uL 1.99-6.95 IMM GRAN x10^3 (test code = 3649407744) 0.03 10*3/uL 0.00-0.06 LYMPH x10^3 (test code = 731-0) 1.81 10*3/uL 1.09-3.23 MONO x10^3 (test code = 742-7) 0.77 10*3/uL 0.36-1.02 EOS x10^3 (test code = 711-2) 0.14 10*3/uL 0.06-0.53 BASO x10^3 (test code = 704-7) 0.03 10*3/uL 0.01-0.09 Lab Interpretation (test code = 68608-5) Abnormal [facility]. METABOLIC PANEL (07304)2023-01-21 21:33:50* Test Item Value Reference Range Interpretation Comme nts NA (test code = 9347779530) 136 mmol/L 135-145 K (test code = 3902269463) 4.3 mmol/L 3.5-5.0 CL (test code = 2150166197) 95 mmol/L 98-108 L CO2 TOTAL (test code = 4780374124) 38 mmol/L 23-31 H AGAP (test code = 9759068575) 3 2-16 BUN (test code = 2653362277) 17 mg/dL 7-23 GLUCOSE (test code = 6239339373) 102 mg/dL 70-110 CREATININE (test code = 4779811007) 0.62 mg/dL 0.60-1.25 TOTAL BILI (test code = 9538335063) 0.8 mg/dL 0.1-1.1 CALCIUM (test code = 0387483107) 7.8 mg/dL 8.6-10.6 L T PROTEIN (test code = 2802400162) 4.9 g/dL 6.3-8.2 L ALBUMIN (test code = 9525845235) 3.0 g/dL 3.5-5.0 L ALK PHOS (test code = 1320035721) 45 U/L 34-122 ALTv (test code = 1742-6) 13 U/L 5-50 AST(SGOT) (test code = 1334724378) 11 U/L 13-40 L eGFR (test code = 7782883255) 130.6 mL/min/1.73m2 OMAYRA (test code = OMAYRA) [...] imaging tests). Lab Interpretation (test code = 28475-6) [facility] [id number] 21:11:45* Test Item Value Reference Range Interpretation Comme nts TROPONIN I (test code = 2895354124) 0.019 ng/mL <=0.034 OMAYRA (test code = [...] of biotin. Lab Interpretation (test code = 74536-0) [id number]-[id number] 21:08:47* Test Item Value Reference Range Interpretation Comme nts NT-proBNP (test code = 0720971649) 266 pg/mL <=125 H Hemolyzed specimen OMAYRA (test code = OMAYRA) Biotin has been reported to cause a negative bias, interpret results relative to patient's use of biotin. Lab Interpretation (test code = 24051-6) [facility] [id number] 20:40:24* Test Item Value Reference Range Interpretation Comme nts WBC (test code = 6690-2) 6.78 See_Comment [Automated Source Audioa MOLOME] The system which generated this result transmitted reference range: 4.20 - 10.70 10*3/?L. The reference range was not used to interpret this result as normal/abnormal. RBC (test code = 789-8) 4.47 See_Comment [Automated Source Audio[employer] MOLOME] The system which generated this result transmitted [...] g/dL 31.2-35.0 L RDW-SD (test code = 59674-3) 60.4 fL 38.5-51.6 H RDW-CV (test code = 788-0) 16.2 % 12.1-15.4 H PLT (test code = 777-3) 215 See_Comment [Automated Source Audioa ge] The system which generated this result transmitted reference range: 150 - 328 10*3/?L. The reference range was not used to interpret this result as normal/abnormal. MPV (test code = 00872-7) 10.9 fL 9.8-13.0 NRBC/100 WBC (test code = 4515007403) 0.0 See_Comment [Automated me ssage] The system which generated this result transmitted reference range: 0.0 - 10.0 /100 WBCs. The reference range was not used to interpret this result as normal/abnormal. NRBC x10^3 (test code = 8340920998) See_Comment [Automated messa ge] The system which generated this result transmitted reference range: 10*3/?L. The reference range was not used to interpret this result as normal/abnormal. GRAN MAT (NEUT) % (test code = 770-8) 75.4 % IMM GRAN % (test code = 2596473507) 0.40 % LYMPH % (test code = 736-9) 15.3 % MONO % (test code = 5905-5) 7.7 % EOS % (test code = 713-8) 0.9 % BASO % (test code = 706-2) 0.3 % GRAN MAT x10^3(ANC) (test code = 4218201840) 5.11 10*3/uL 1.99-6.95 IMM GRAN x10^3 (test code = 0945193488) 0.03 10*3/uL 0.00-0.06 LYMPH x10^3 (test code = 731-0) 1.04 10*3/uL 1.09-3.23 L MONO x10^3 (test code = 742-7) 0.52 10*3/uL 0.36-1.02 EOS x10^3 (test code = 711-2) 0.06 10*3/uL 0.06-0.53 BASO x10^3 (test code = 704-7) 0.01-0.09 Lab Interpretation (test code = 06015-8) [facility] [id number]-[id number] 08:49:53* Test Item Value Reference Range Interpretation Comme nts NT-proBNP (test code = 2106303971) 158 pg/mL <=125 H OMAYRA (test code = OMAYRA) Biotin has been reported to cause a negative bias, interpret results relative to patient's use of biotin. Lab Interpretation (test code = 79265-5) [facility]normal [facility]Bcewz9373-92-99 08:44:10* Test Item Value Reference Range Interpretation Comments D-DIMER (test code = 6199987979) See_Comment [Automated message] The system which generated [...] a diagnosis. Lab Interpretation (test code = 04177-0) Normal [facility] METABOLIC PANEL (NA, K, CL, CO2, GLUCOSE, BUN, CREATININE, CA)2023-01-19 08:41:13* Test Item Value Reference Range Interpretation Comme nts NA (test code = 2476599527) 134 mmol/L 135-145 L K (test code = 6854211271) 5.3 mmol/L 3.5-5.0 H CL (test code = 7191626968) 91 mmol/L 98-108 L CO2 TOTAL (test code = 4774349456) 40 mmol/L 23-31 H AGAP (test code = 6663304506) 3 2-16 BUN (test code = 2802429065) 14 mg/dL 7-23 GLUCOSE (test code = 3177810350) 125 mg/dL 70-110 H CREATININE (test code = 2325008897) 0.64 mg/dL 0.60-1.25 CALCIUM (test code = 1442993725) 8.5 mg/dL 8.6-10.6 L eGFR (test code = 2920393093) 125.9 mL/min/1.73m2 OMAYRA (test code = OMYARA) Association of Glomerular Filtration Rate (GFR) and [...] imaging tests). Lab Interpretation (test code = 25194-3) Abnormal [facility] WITH [id number] 08:27:33* Test Item Value Reference Range Interpretation Comme nts WBC (test code = 6690-2) 10.04 See_Comment [Automated Linkurious] The system which generated this result transmitted reference range: 4.20 - 10.70 10*3/?L. The reference range was not used to interpret this result as normal/abnormal. RBC (test code = 789-8) 4.35 See_Comment [Automated Linkurious] The system which generated this result transmitted [...] 31.2 g/dL 31.2-35.0 RDW-SD (test code = 63785-4) 58.4 fL 38.5-51.6 H RDW-CV (test code = 788-0) 15.9 % 12.1-15.4 H PLT (test code = 777-3) 211 See_Comment [Automated messa ge] The system which generated this result transmitted reference range: 150 - 328 10*3/?L. The reference range was not used to interpret this result as normal/abnormal. MPV (test code = 48803-7) 10.2 fL 9.8-13.0 NRBC/100 WBC (test code = 8520144212) 0.0 See_Comment [Automated [employer] ssage] The system which generated this result transmitted reference range: 0.0 - 10.0 /100 WBCs. The reference range was not used to interpret this result as normal/abnormal. NRBC x10^3 (test code = 2351684687) See_Comment [Automated Source Audioa ge] The system which generated this result transmitted reference range: 10*3/?L. The reference range was not used to interpret this result as normal/abnormal. GRAN MAT (NEUT) % (test code = 770-8) 81.2 % IMM GRAN % (test code = 5059564063) 0.50 % LYMPH % (test code = 736-9) 10.1 % MONO % (test code = 5905-5) 7.5 % EOS % (test code = 713-8) 0.5 % BASO % (test code = 706-2) 0.2 % GRAN MAT x10^3(ANC) (test code = 1327811094) 8.16 10*3/uL 1.99-6.95 H IMM GRAN x10^3 (test code = 0617764026) 0.05 10*3/uL 0.00-0.06 LYMPH x10^3 (test code = 731-0) 1.01 10*3/uL 1.09-3.23 L MONO x10^3 (test code = 742-7) 0.75 10*3/uL 0.36-1.02 EOS x10^3 (test code = 711-2) 0.05 10*3/uL 0.06-0.53 L BASO x10^3 (test code = 704-7) 0.01-0.09 Lab Interpretation (test code = 46936-6) [facility] [id number] 12:09:33* Test Item Value Reference Range Interpretation Comme nts TROPONIN I (test code = 6874328956) 0.004 ng/mL <=0.034 OMAYRA (test code = [...] of biotin. Lab Interpretation (test code = 12389-1) Normal [facility] GVS-[id number] 12:06:16* Test Item Value Reference Range Interpretation Comme nts NT-proBNP (test code = 4458638697) 135 pg/mL <=125 H OMAYRA (test code = OMAYRA) Biotin has been reported to cause a negative bias, interpret results relative to patient's use of biotin. Lab Interpretation (test code = 87668-9) [facility] Metabolic Panel (46800)2023-01-17 11:57:36* Test Item Value Reference Range Interpretation Comme nts NA (test code = 6325364483) 133 mmol/L 135-145 L K (test code = 5093278075) 5.0 mmol/L 3.5-5.0 CL (test code = 0650664693) 91 mmol/L 98-108 L CO2 TOTAL (test code = 8507729662) 33 mmol/L 23-31 H AGAP (test code = 6559818675) 9 2-16 BUN (test code = 0816156435) 10 mg/dL 7-23 GLUCOSE (test code = 4314367377) 104 mg/dL 70-110 CREATININE (test code = 4715718791) 0.63 mg/dL 0.60-1.25 TOTAL BILI (test code = 3914360467) 1.2 mg/dL 0.1-1.1 H CALCIUM (test code = 0939330033) 9.0 mg/dL 8.6-10.6 T PROTEIN (test code = 9896721017) 6.9 g/dL 6.3-8.2 ALBUMIN (test code = 3571476030) 4.4 g/dL 3.5-5.0 ALK PHOS (test code = 3699657474) 76 U/L 34-122 ALTv (test code = 1742-6) 13 U/L 5-50 AST(SGOT) (test code = 1981743901) 13 U/L 13-40 eGFR (test code = 1415875138) 128.2 mL/min/1.73m2 MOAYRA (test code = OMAYRA) Association of Glomerular [...] imaging tests). Lab Interpretation (test code = 42625-1) Abnormal [facility] with [id number] 11:30:52* Test Item Value Reference Range Interpretation Comme nts WBC (test code = 6690-2) 9.66 See_Comment [Automated Source Audioa ge] The system which generated this result transmitted reference range: 4.20 - 10.70 10*3/?L. The reference range was not used to interpret this result as normal/abnormal. RBC (test code = 789-8) 5.00 See_Comment [Automated Source Audioa ge] The system which generated this result [...] 31.2 g/dL 31.2-35.0 RDW-SD (test code = 07067-1) 56.6 fL 38.5-51.6 H RDW-CV (test code = 788-0) 15.4 % 12.1-15.4 PLT (test code = 777-3) 261 See_Comment [Automated Source Audioa ge] The system which generated this result transmitted reference range: 150 - 328 10*3/?L. The reference range was not used to interpret this result as normal/abnormal. MPV (test code = 99239-8) 10.4 fL 9.8-13.0 NRBC/100 WBC (test code = 0903569743) 0.0 See_Comment [Automated [employer] ssage] The system which generated this result transmitted reference range: 0.0 - 10.0 /100 WBCs. The reference range was not used to interpret this result as normal/abnormal. NRBC x10^3 (test code = 2862985164) See_Comment [Automated messa ge] The system which generated this result transmitted reference range: 10*3/?L. The reference range was not used to interpret this result as normal/abnormal. GRAN MAT (NEUT) % (test code = 770-8) 58.9 % IMM GRAN % (test code = 8978781581) 0.40 % LYMPH % (test code = 736-9) 28.6 % MONO % (test code = 5905-5) 10.5 % EOS % (test code = 713-8) 0.9 % BASO % (test code = 706-2) 0.7 % GRAN MAT x10^3(ANC) (test code = 5435509623) 5.69 10*3/uL 1.99-6.95 IMM GRAN x10^3 (test code = 5672601592) 0.04 10*3/uL 0.00-0.06 LYMPH x10^3 (test code = 731-0) 2.76 10*3/uL 1.09-3.23 MONO x10^3 (test code = 742-7) 1.01 10*3/uL 0.36-1.02 EOS x10^3 (test code = 711-2) 0.09 10*3/uL 0.06-0.53 BASO x10^3 (test code = 704-7) 0.07 10*3/uL 0.01-0.09 Lab Interpretation (test code = 02166-2) [facility]normal [facility] [id number] 10:20:57* Test Item Value Reference Range Interpretation Comme nts NT-proBNP (test code = 9130882818) 473 pg/mL <=125 H OMAYRA (test code = OMAYRA) Biotin has been reported to cause a negative bias, interpret results relative to patient's use of biotin. Lab Interpretation (test code = 31857-3) Abnormal [facility] HospitalLIPID PANEL (46778)(TOTAL CHOLESTEROL, TRIGLYCERIDES, HDL)2022-12-12 10:18:39* Test Item Value Reference Range Interpretation Comme nts CHOL (test code = 2486114472) 133 mg/dL 120-200 HDL (test code = 4741802671) 38 mg/dL >=40 L HDLC RATIO (test code = 3212517084) 3.5 <=5.0 TRIG (test code = 7435918006) 57 mg/dL 30-170 LDL CHOL (test code = 96485-8) 84 mg/dL <=160 VLDL (test code = 4280661561) 11 mg/dL 5-60 Lab Interpretation (test cod e = 52788-7) [facility]normal [facility]2023-03-26 10:18:19* Test Item Value Reference Range Interpretation Comme nts MAGNESIUM (test code = 3729953554) 2.0 mg/dL 1.7-2.4 Lab Interpretation (test cod e = 13400-0) Normal [facility] METABOLIC PANEL (NA, K, CL, CO2, GLUCOSE, BUN, CREATININE, CA)2022-12-12 10:18:14* Test Item Value Reference Range Interpretation Comme nts NA (test code = 6531035128) 130 mmol/L 135-145 L K (test code = 6776315835) 3.7 mmol/L 3.5-5.0 CL (test code = 0501202939) 89 mmol/L 98-108 L CO2 TOTAL (test code = 1219689064) 37 mmol/L 23-31 H AGAP (test code = 7391008487) 4 2-16 BUN (test code = 0596486281) 13 mg/dL 7-23 GLUCOSE (test code = 0110505231) 120 mg/dL 70-110 H CREATININE (test code = 2195776821) 0.56 mg/dL 0.60-1.25 L CALCIUM (test code = 5966407684) 8.3 mg/dL 8.6-10.6 L eGFR (test code = 9223780554) 146.9 mL/min/1.73m2 OMAYRA (test code = OMAYRA) [...] imaging tests). Lab Interpretation (test code = 85336-6) Abnormal [facility]ETHANOL20[facility] 00:54:58 ALCOHOL<10mg/dL12/10/2022 7:[address] [facility]<10 Ukxpldox10-325 Toxic>100 Depression of CYBER INCIDENT ANALYST>400 Fatalities ReportedUniversity HospitalTROPONIN [id number] 00:50:14* Test Item Value Reference Range Interpretation Comme nts TROPONIN I (test code = 1363520200) 0.006 ng/mL <=0.034 OMAYRA (test code = [...] of biotin. Lab Interpretation (test code = 09918-3) Normal [facility] [id number] 00:47:12* Test Item Value Reference Range Interpretation Comme nts NT-proBNP (test code = 5047738034) 291 pg/mL <=125 H OMAYRA (test code = OMAYRA) Biotin has been reported to cause a negative bias, interpret results relative to patient's use of biotin. Lab Interpretation (test code = 69806-4) Abnormal [facility]. METABOLIC PANEL (56217)2022-12-11 00:41:12* Test Item Value Reference Range Interpretation Comme nts NA (test code = 5173129417) 126 mmol/L 135-145 L K (test code = 6979207985) 4.0 mmol/L 3.5-5.0 CL (test code = 7465078021) 82 mmol/L 98-108 L CO2 TOTAL (test code = 0058944164) 40 mmol/L 23-31 H AGAP (test code = 7496422978) 4 2-16 BUN (test code = 9916948696) 16 mg/dL 7-23 GLUCOSE (test code = 9113060862) 97 mg/dL 70-110 CREATININE (test code = 0557654356) 0.67 mg/dL 0.60-1.25 TOTAL BILI (test code = 7359093292) 0.8 mg/dL 0.1-1.1 CALCIUM (test code = 5910788411) 8.5 mg/dL 8.6-10.6 L T PROTEIN (test code = 3766192199) 5.9 g/dL 6.3-8.2 L ALBUMIN (test code = 8992812511) 3.5 g/dL 3.5-5.0 ALK PHOS (test code = 2324823535) 49 U/L 34-122 ALTv (test code = 1742-6) 18 U/L 5-50 AST(SGOT) (test code = 0059315395) 11 U/L 13-40 L eGFR (test code = 7949701167) 119.4 mL/min/1.73m2 OMAYRA (test code = OMAYRA) [...] imaging tests). Lab Interpretation (test code = 37479-5) Abnormal [facility] WITH [id number] 00:29:08* Test Item Value Reference Range Interpretation Comme nts WBC (test code = 6690-2) 10.15 See_Comment [Wrapp] The system which generated this result transmitted reference range: 4.20 - 10.70 10*3/?L. The reference range was not used to interpret this result as normal/abnormal. RBC (test code = 789-8) 4.52 See_Comment [Wrapp] The system which generated this result transmitted [...] 32.8 g/dL 31.2-35.0 RDW-SD (test code = 59526-8) 46.7 fL 38.5-51.6 RDW-CV (test code = 788-0) 13.6 % 12.1-15.4 PLT (test code = 777-3) 263 See_Comment [Automated messa ge] The system which generated this result transmitted reference range: 150 - 328 10*3/?L. The reference range was not used to interpret this result as normal/abnormal. MPV (test code = 91303-7) 9.7 fL 9.8-13.0 L NRBC/100 WBC (test code = 8579645247) 0.0 See_Comment [Automated [employer] ssage] The system which generated this result transmitted reference range: 0.0 - 10.0 /100 WBCs. The reference range was not used to interpret this result as normal/abnormal. NRBC x10^3 (test code = 0371617884) See_Comment [Automated messa ge] The system which generated this result transmitted reference range: 10*3/?L. The reference range was not used to interpret this result as normal/abnormal. GRAN MAT (NEUT) % (test code = 770-8) 71.6 % IMM GRAN % (test code = 8970992668) 0.90 % LYMPH % (test code = 736-9) 17.6 % MONO % (test code = 5905-5) 8.7 % EOS % (test code = 713-8) 1.0 % BASO % (test code = 706-2) 0.2 % GRAN MAT x10^3(ANC) (test code = 6053758500) 7.27 10*3/uL 1.99-6.95 H IMM GRAN x10^3 (test code = 2649370372) 0.09 10*3/uL 0.00-0.06 H LYMPH x10^3 (test code = 731-0) 1.79 10*3/uL 1.09-3.23 MONO x10^3 (test code = 742-7) 0.88 10*3/uL 0.36-1.02 EOS x10^3 (test code = 711-2) 0.10 10*3/uL 0.06-0.53 BASO x10^3 (test code = 704-7) 0.01-0.09 Lab Interpretation (test code = 96860-4) Abnormal [facility] HospitalLactic Acid Whole [id number] 00:14:48* Test Item Value Reference Range Interpretation Comme nts LACTIC ACID (test code = 3255467524) 1.30 mmol/L 0.50-2.20 Lab Interpretation (test cod e = 26600-7) Normal [facility] METABOLIC PANEL (NA, K, CL, CO2, GLUCOSE, BUN, CREATININE, CA)2022-12-04 11:06:33* Test Item Value Reference Range Interpretation Comme nts NA (test code = 1348934665) 123 mmol/L 135-145 L K (test code = 8521866349) 3.8 mmol/L 3.5-5.0 CL (test code = 5834460444) 86 mmol/L 98-108 L CO2 TOTAL (test code = 0021749062) 36 mmol/L 23-31 H AGAP (test code = 8295512806) 1 2-16 L BUN (test code = 9804273186) 22 mg/dL 7-23 GLUCOSE (test code = 1384704709) 195 mg/dL 70-110 H CREATININE (test code = 9167287710) 0.76 mg/dL 0.60-1.25 CALCIUM (test code = 2728712618) 8.2 mg/dL 8.6-10.6 L eGFR (test code = 0123062426) 103.3 mL/min/1.73m2 OMAYRA (test code = OMAYRA) [...] imaging tests). Lab Interpretation (test code = 01798-4) Abnormal [facility] WITH [id number] 10:54:29* Test Item Value Reference Range Interpretation Comme nts WBC (test code = 6690-2) 8.54 See_Comment [Automated Linkurious] The system which generated this result transmitted reference range: 4.20 - 10.70 10*3/?L. The reference range was not used to interpret this result as normal/abnormal. RBC (test code = 789-8) 4.17 See_Comment L [Automated Linkurious] The system which generated this result transmitted [...] 34.1 g/dL 31.2-35.0 RDW-SD (test code = 50678-0) 44.1 fL 38.5-51.6 RDW-CV (test code = 788-0) 13.6 % 12.1-15.4 PLT (test code = 777-3) 247 See_Comment [Automated Source Audioa ge] The system which generated this result transmitted reference range: 150 - 328 10*3/?L. The reference range was not used to interpret this result as normal/abnormal. MPV (test code = 37688-2) 9.5 fL 9.8-13.0 L NRBC/100 WBC (test code = 0585249562) 0.0 See_Comment [Automated [employer] ssage] The system which generated this result transmitted reference range: 0.0 - 10.0 /100 WBCs. The reference range was not used to interpret this result as normal/abnormal. NRBC x10^3 (test code = 5661393197) See_Comment [Automated Source Audioa ge] The system which generated this result transmitted reference range: 10*3/?L. The reference range was not used to interpret this result as normal/abnormal. GRAN MAT (NEUT) % (test code = 770-8) 93.0 % IMM GRAN % (test code = 2791520899) 0.90 % LYMPH % (test code = 736-9) 3.2 % MONO % (test code = 5905-5) 2.9 % EOS % (test code = 713-8) 0.0 % BASO % (test code = 706-2) 0.0 % GRAN MAT x10^3(ANC) (test code = 4781280279) 7.94 10*3/uL 1.99-6.95 H IMM GRAN x10^3 (test code = 0200885710) 0.08 10*3/uL 0.00-0.06 H LYMPH x10^3 (test code = 731-0) 0.27 10*3/uL 1.09-3.23 L MONO x10^3 (test code = 742-7) 0.25 10*3/uL 0.36-1.02 L EOS x10^3 (test code = 711-2) 0.06-0.53 L BASO x10^3 (test code = 704-7) 0.01-0.09 Lab Interpretation (test code = 33045-6) Abnormal [facility] Metabolic Panel (NA, K, CL, CO2, GLUCOSE, BUN, CREATININE, CA)2022-12-03 10:44:53* Test Item Value Reference Range Interpretation Comme nts NA (test code = 7737125281) 126 mmol/L 135-145 L K (test code = 8407106728) 4.0 mmol/L 3.5-5.0 Slight hemolysis CL (test code = 1238696557) 89 mmol/L 98-108 L CO2 TOTAL (test code = 4684611807) 32 mmol/L 23-31 H AGAP (test code = 9798488902) 5 2-16 BUN (test code = 2638326862) 15 mg/dL 7-23 Slight hemolysis GLUCOSE (test code = 5455237237) 115 mg/dL 70-110 H CREATININE (test code = 7068630954) 0.63 mg/dL 0.60-1.25 CALCIUM (test code = 6964727164) 7.7 mg/dL 8.6-10.6 L eGFR (test code = 7350220931) 128.2 mL/min/1.73m2 OMAYRA (test code = OMAYRA) [...] imaging tests). Lab Interpretation (test code = 68892-6) [facility]normal [facility] Tlugy1365-12-95 10:44:53* Test Item Value Reference Range Interpretation Comme nts MAGNESIUM (test code = 3743409874) 1.6 mg/dL 1.7-2.4 L Lab Interpretation (test cod e = 48304-9) [facility]normal [facility] with Lulpbzcssjae1180-65-69 10:39:13* Test Item Value Reference Range Interpretation [...] 33.1 g/dL 31.2-35.0 RDW-SD (test code = 24218-4) 45.4 fL 38.5-51.6 RDW-CV (test code = 788-0) 13.6 % 12.1-15.4 PLT (test code = 777-3) 254 See_Comment [Automated message] The system which generated this result transmitted reference range: 150 - 328 10*3/?L. The reference range was not used to interpret this result as normal/abnormal. MPV (test code = 43118-2) 10.2 fL 9.8-13.0 NRBC/100 WBC (test code = 4297299218) 0.0 See_Comment [Automated message] The system which generated this result transmitted reference range: 0.0 - 10.0 /100 WBCs. The reference range was not used to interpret this result as normal/abnormal. NRBC x10^3 (test code = 9687968903) See_Comment [Automated message] The system which generated this result transmitted reference range: 10*3/?L. The reference range was not used to interpret this result as normal/abnormal. GRAN MAT (NEUT) % (test code = 770-8) 90.0 % IMM GRAN % (test code = 8539299666) 0.90 % LYMPH % (test code = 736-9) 5.9 % MONO % (test code = 5905-5) 2.8 % EOS % (test code = 713-8) 0.2 % BASO % (test code = 706-2) 0.2 % GRAN MAT x10^3(ANC) (test code = 8057129431) 10.27 10*3/uL 1.99-6.95 H IMM GRAN x10^3 (test code = 9704907825) 0.10 10*3/uL 0.00-0.06 H LYMPH x10^3 (test code = 731-0) 0.67 10*3/uL 1.09-3.23 L MONO x10^3 (test code = 742-7) 0.32 10*3/uL 0.36-1.02 L EOS x10^3 (test code = 711-2) 0.06-0.53 L BASO x10^3 (test code = 704-7) 0.01-0.09 Lab Interpretation (test code = 36378-0) Abnormal [facility] METABOLIC PANEL (NA, K, CL, CO2, GLUCOSE, BUN, CREATININE, CA)2022-12-02 06:20:42* Test Item Value Reference Range Interpretation Comme nts NA (test code = 5637640047) 124 mmol/L 135-145 L K (test code = 5410020864) 4.5 mmol/L 3.5-5.0 CL (test code = 0165755092) 78 mmol/L 98-108 L CO2 TOTAL (test code = 0086586073) 37 mmol/L 23-31 H AGAP (test code = 8333687994) 9 2-16 BUN (test code = 6530118931) 14 mg/dL 7-23 GLUCOSE (test code = 3438739365) 93 mg/dL 70-110 CREATININE (test code = 7813118729) 0.71 mg/dL 0.60-1.25 CALCIUM (test code = 7297555076) 9.1 mg/dL 8.6-10.6 eGFR (test code = 9532536257) 111.7 mL/min/1.73m2 OMAYRA (test code = OMAYRA) [...] imaging tests). Lab Interpretation (test code = 93413-4) Abnormal [facility]A [id number] 12:22:32* Test Item Value Reference Range Interpretation Comme nts TROPONIN I (test code = 4483195858) 0.008 ng/mL <=0.034 OMAYRA (test code = [...] of biotin. Lab Interpretation (test code = 51966-6) Normal [facility] METABOLIC PANEL (NA, K, CL, CO2, GLUCOSE, BUN, CREATININE, CA)2022-12-01 12:11:11* Test Item Value Reference Range Interpretation Comme [facility] NA (test code = 8152853712) 124 mmol/L 135-145 L K (test code = 7555163058) 4.2 mmol/L 3.5-5.0 CL (test code = 0465599581) 79 mmol/L 98-108 L CO2 TOTAL (test code = 9633757869) 37 mmol/L 23-31 H AGAP (test code = 3504033932) 8 2-16 BUN (test code = 6698391448) 16 mg/dL 7-23 GLUCOSE (test code = 2680763731) 105 mg/dL 70-110 CREATININE (test code = 7121247284) 0.67 mg/dL 0.60-1.25 CALCIUM (test code = 5364423321) 8.6 mg/dL 8.6-10.6 eGFR (test code = 5707393361) 119.4 mL/min/1.73m2 OMAYRA (test code = OMAYRA) [...] imaging tests). Lab Interpretation (test code = 48346-6) Abnormal [facility] WITH [id number] 11:59:32* Test Item Value Reference Range Interpretation [...] 32.9 g/dL 31.2-35.0 RDW-SD (test code = 16008-2) 43.8 fL 38.5-51.6 RDW-CV (test code = 788-0) 13.2 % 12.1-15.4 PLT (test code = 777-3) 208 See_Comment [Automated message] The system which generated this result transmitted reference range: 150 - 328 10*3/?L. The reference range was not used to interpret this result as normal/abnormal. MPV (test code = 52813-0) 9.8 fL 9.8-13.0 NRBC/100 WBC (test code = 8412719665) 0.0 See_Comment [Automated message] The system which generated this result transmitted reference range: 0.0 - 10.0 /100 WBCs. The reference range was not used to interpret this result as normal/abnormal. NRBC x10^3 (test code = 6467160375) See_Comment [Automated message] The system which generated this result transmitted reference range: 10*3/?L. The reference range was not used to interpret this result as normal/abnormal. GRAN MAT (NEUT) % (test code = 770-8) 85.9 % IMM GRAN % (test code = 3497153174) 0.50 % LYMPH % (test code = 736-9) 6.8 % MONO % (test code = 5905-5) 6.3 % EOS % (test code = 713-8) 0.3 % BASO % (test code = 706-2) 0.2 % GRAN MAT x10^3(ANC) (test code = 5489351541) 10.44 10*3/uL 1.99-6.95 H IMM GRAN x10^3 (test code = 8649017982) 0.06 10*3/uL 0.00-0.06 LYMPH x10^3 (test code = 731-0) 0.83 10*3/uL 1.09-3.23 L MONO x10^3 (test code = 742-7) 0.77 10*3/uL 0.36-1.02 EOS x10^3 (test code = 711-2) 0.04 10*3/uL 0.06-0.53 L BASO x10^3 (test code = 704-7) 0.03 10*3/uL 0.01-0.09 Lab Interpretation (test code = 48210-9) Abnormal [facility] (NA, K, CL, CO2, GLUCOSE, BUN, CREATININE, CA)2022-11-28 17:17:23* Test Item Value Reference Range Interpretation Comme nts NA (test code = 3939504151) 120 mmol/L 135-145 L K (test code = 0731143068) 4.3 mmol/L 3.5-5.0 CL (test code = 7118134921) 77 mmol/L 98-108 L CO2 TOTAL (test code = 4371083150) 40 mmol/L 23-31 H AGAP (test code = 9216457807) 3 2-16 BUN (test code = 7998995783) 15 mg/dL 7-23 GLUCOSE (test code = 1218258161) 151 mg/dL 70-110 H CREATININE (test code = 5049950028) 0.63 mg/dL 0.60-1.25 CALCIUM (test code = 6571213741) 8.2 mg/dL 8.6-10.6 L eGFR (test code = 7677650942) 128.2 mL/min/1.73m2 OMAYRA (test code = OMAYRA) [...] imaging tests). Lab Interpretation (test code = 46960-7) [facility]:10* Test Item Value Reference Range Interpretation Comme nts MAGNESIUM (test code = 5339324023) 1.6 mg/dL 1.7-2.4 L Lab Interpretation (test cod e = 47023-3) [facility] (NA, K, CL, CO2, GLUCOSE, BUN, CREATININE, CA)2022-11-28 01:29:53* Test Item Value Reference Range Interpretation Comme nts NA (test code = 7803977067) 120 mmol/L 135-145 L K (test code = 5318163722) 3.9 mmol/L 3.5-5.0 CL (test code = 8806694373) 77 mmol/L 98-108 L CO2 TOTAL (test code = 3319983064) 36 mmol/L 23-31 H AGAP (test code = 3204545061) 7 2-16 BUN (test code = 3982017685) 17 mg/dL 7-23 GLUCOSE (test code = 2219670157) 85 mg/dL 70-110 CREATININE (test code = 8684257260) 0.76 mg/dL 0.60-1.25 CALCIUM (test code = 4830831141) 8.3 mg/dL 8.6-10.6 L eGFR (test code = 3330804108) 103.3 mL/min/1.73m2 OMAYRA (test code = OMAYRA) [...] imaging tests). Lab Interpretation (test code = 39814-8) Abnormal [facility] METABOLIC PANEL (NA, K, CL, CO2, GLUCOSE, BUN, CREATININE, CA)2022-11-27 20:36:26* Test Item Value Reference Range Interpretation Comme nts NA (test code = 8815845064) 122 mmol/L 135-145 L K (test code = 1067966029) 3.9 mmol/L 3.5-5.0 CL (test code = 6104557004) 79 mmol/L 98-108 L CO2 TOTAL (test code = 8186616481) 37 mmol/L 23-31 H AGAP (test code = 5423551467) 6 2-16 BUN (test code = 4807336718) 17 mg/dL 7-23 GLUCOSE (test code = 8679470719) 113 mg/dL 70-110 H CREATININE (test code = 0837079994) 0.78 mg/dL 0.60-1.25 CALCIUM (test code = 5980433443) 7.8 mg/dL 8.6-10.6 L eGFR (test code = 2291862719) 100.2 mL/min/1.73m2 OMAYRA (test code = OMAYRA) [...] imaging tests). Lab Interpretation (test code = 25863-8) [facility]normal [facility] (A1C)2022-11-27 18:21:30* Test Item Value Reference Range Interpretation Comme nts HGB A1C (test code = 4548-4) 5.9 % 4.0-5.7 H OMAYRA (test code = OMAYRA) Reference RangesNormal: <5.7%Prediabetes: 5.7 - 6.4%Diabetes: > 6.5% Lab Interpretation (test code = 72070-8) [facility]normal [facility] [id number] 06:12:58* Test Item Value Reference Range Interpretation Comme nts TROPONIN I (test code = 8508379965) 0.007 ng/mL <=0.034 OMAYRA (test code = [...] of biotin. Lab Interpretation (test code = 83264-4) Normal [facility] 06:10:43 ALCOHOL<10mg/dL11/27/2022 12:10 AM [facility]<10 Vftdxmge66-273 Toxic>100 Depression of CYBER INCIDENT ANALYST>400 Fatalities [facility]orted[facility]N-[facility]MINAL [id number] 06:09:37* Test Item Value Reference Range Interpretation Comme nts NT-proBNP (test code = 9733554013) 311 pg/mL <=125 H OMAYRA (test code = OMAYRA) Biotin has been reported to cause a negative bias, interpret results relative to patient's use of biotin. Lab Interpretation (test code = 76622-0) [facility] (09996)2022-11-27 06:08:02* Test Item Value Reference Range Interpretation Comme nts NA (test code = 9396628019) 116 mmol/L 135-145 LL K (test code = 0308372111) 4.1 mmol/L 3.5-5.0 CL (test code = 2697917969) 75 mmol/L 98-108 L CO2 TOTAL (test code = 2625955568) 34 mmol/L 23-31 H AGAP (test code = 5946384113) 7 2-16 BUN (test code = 6940337303) 16 mg/dL 7-23 GLUCOSE (test code = 8304192051) 70 mg/dL 70-110 CREATININE (test code = 2714143774) 0.62 mg/dL 0.60-1.25 TOTAL BILI (test code = 1000377891) 1.2 mg/dL 0.1-1.1 H CALCIUM (test code = 1658796234) 8.1 mg/dL 8.6-10.6 L T PROTEIN (test code = 2360742306) 6.3 g/dL 6.3-8.2 ALBUMIN (test code = 8053353358) 3.8 g/dL 3.5-5.0 ALK PHOS (test code = 5099278849) 58 U/L 34-122 ALTv (test code = 1742-6) 15 U/L 5-50 AST(SGOT) (test code = 6413633138) 13 U/L 13-40 eGFR (test code = 1885160630) 130.6 mL/min/1.73m2 OMAYRA (test code = OMAYRA) [...] imaging tests). Lab Interpretation (test code = 96706-7) Abnormal [facility] WITH [id number] 05:45:18* Test Item Value Reference Range Interpretation Comme nts WBC (test code = 6690-2) 9.18 See_Comment [Automated Linkurious] The system which generated this result transmitted [...] 34.8 g/dL 31.2-35.0 RDW-SD (test code = 93052-8) 40.1 fL 38.5-51.6 RDW-CV (test code = 788-0) 12.6 % 12.1-15.4 PLT (test code = 777-3) 216 See_Comment [Automated Source Audioa ge] The system which generated this result transmitted reference range: 150 - 328 10*3/?L. The reference range was not used to interpret this result as normal/abnormal. MPV (test code = 52605-5) 9.4 fL 9.8-13.0 L NRBC/100 WBC (test code = 6856050138) 0.0 See_Comment [Automated [employer] ssage] The system which generated this result transmitted reference range: 0.0 - 10.0 /100 WBCs. The reference range was not used to interpret this result as normal/abnormal. NRBC x10^3 (test code = 8204173133) See_Comment [Automated messa ge] The system which generated this result transmitted reference range: 10*3/?L. The reference range was not used to interpret this result as normal/abnormal. GRAN MAT (NEUT) % (test code = 770-8) 79.1 % IMM GRAN % (test code = 8805766741) 0.90 % LYMPH % (test code = 736-9) 11.8 % MONO % (test code = 5905-5) 6.8 % EOS % (test code = 713-8) 1.2 % BASO % (test code = 706-2) 0.2 % GRAN MAT x10^3(ANC) (test code = 2421306137) 7.27 10*3/uL 1.99-6.95 H IMM GRAN x10^3 (test code = 4212285284) 0.08 10*3/uL 0.00-0.06 H LYMPH x10^3 (test code = 731-0) 1.08 10*3/uL 1.09-3.23 L MONO x10^3 (test code = 742-7) 0.62 10*3/uL 0.36-1.02 EOS x10^3 (test code = 711-2) 0.11 10*3/uL 0.06-0.53 BASO x10^3 (test code = 704-7) 0.01-0.09 Lab Interpretation (test code = 21919-1) Abnormal [facility] [id number] 09:49:54* Test Item Value Reference Range Interpretation Comme nts NT-proBNP (test code = 2690238048) 294 pg/mL <=125 H OMAYRA (test code = OMAYRA) Biotin has been reported to cause a negative bias, interpret results relative to patient's use of biotin. Lab Interpretation (test code = 91524-8) [facility]normal [facility] (14881)2022-11-19 09:41:52* Test Item Value Reference Range Interpretation Comme nts NA (test code = 5710677421) 120 mmol/L 135-145 L K (test code = 2638384818) 4.4 mmol/L 3.5-5.0 CL (test code = 6533166828) 80 mmol/L 98-108 L CO2 TOTAL (test code = 2497213257) 34 mmol/L 23-31 H AGAP (test code = 4686701950) 6 2-16 BUN (test code = 8056426471) 10 mg/dL 7-23 GLUCOSE (test code = 7678253720) 93 mg/dL 70-110 CREATININE (test code = 2839688286) 0.77 mg/dL 0.60-1.25 TOTAL BILI (test code = 6832341571) 1.1 mg/dL 0.1-1.1 CALCIUM (test code = 8450897781) 8.7 mg/dL 8.6-10.6 T PROTEIN (test code = 1480612590) 6.9 g/dL 6.3-8.2 ALBUMIN (test code = 4960288200) 4.1 g/dL 3.5-5.0 ALK PHOS (test code = 4487797355) 60 U/L 34-122 ALTv (test code = 1742-6) 14 U/L 5-50 AST(SGOT) (test code = 8547340192) 13 U/L 13-40 eGFR (test code = 3386858567) 101.7 mL/min/1.73m2 OMAYRA (test code = OMAYRA) [...] imaging tests). Lab Interpretation (test code = 63549-3) Abnormal [facility] WITH [id number] 09:02:29* Test Item Value Reference Range Interpretation [...] 33.7 g/dL 31.2-35.0 RDW-SD (test code = 69192-9) 42.3 fL 38.5-51.6 RDW-CV (test code = 788-0) 12.9 % 12.1-15.4 PLT (test code = 777-3) 252 See_Comment [Automated messa ge] The system which generated this result transmitted reference range: 150 - 328 10*3/?L. The reference range was not used to interpret this result as normal/abnormal. MPV (test code = 62015-5) 9.6 fL 9.8-13.0 L NRBC/100 WBC (test code = 0075288973) 0.0 See_Comment [Automated [employer] ssage] The system which generated this result transmitted reference range: 0.0 - 10.0 /100 WBCs. The reference range was not used to interpret this result as normal/abnormal. NRBC x10^3 (test code = 6252573423) See_Comment [Automated messa ge] The system which generated this result transmitted reference range: 10*3/?L. The reference range was not used to interpret this result as normal/abnormal. GRAN MAT (NEUT) % (test code = 770-8) 70.7 % IMM GRAN % (test code = 1893087424) 1.00 % LYMPH % (test code = 736-9) 16.0 % MONO % (test code = 5905-5) 10.5 % EOS % (test code = 713-8) 1.3 % BASO % (test code = 706-2) 0.5 % GRAN MAT x10^3(ANC) (test code = 0179083197) 5.87 10*3/uL 1.99-6.95 IMM GRAN x10^3 (test code = 9816473644) 0.08 10*3/uL 0.00-0.06 H LYMPH x10^3 (test code = 731-0) 1.33 10*3/uL 1.09-3.23 MONO x10^3 (test code = 742-7) 0.87 10*3/uL 0.36-1.02 EOS x10^3 (test code = 711-2) 0.11 10*3/uL 0.06-0.53 BASO x10^3 (test code = 704-7) 0.04 10*3/uL 0.01-0.09 Lab Interpretation (test code = 78726-5) Abnormal [facility] METABOLIC PANEL (NA, K, CL, CO2, GLUCOSE, BUN, CREATININE, CA)2022-11-10 23:42:55* Test Item Value Reference Range Interpretation Comme nts NA (test code = 0512965338) 121 mmol/L 135-145 L K (test code = 3378050575) 4.7 mmol/L 3.5-5.0 CL (test code = 2607290918) 82 mmol/L 98-108 L CO2 TOTAL (test code = 0801980061) 34 mmol/L 23-31 H AGAP (test code = 8789844424) 5 2-16 BUN (test code = 6559258721) 15 mg/dL 7-23 GLUCOSE (test code = 8019592003) 120 mg/dL 70-110 H CREATININE (test code = 1470577052) 0.75 mg/dL 0.60-1.25 CALCIUM (test code = 0059304179) 7.7 mg/dL 8.6-10.6 L eGFR (test code = 8060360400) 104.8 mL/min/1.73m2 OMAYRA (test code = OMAYRA) [...] imaging tests). Lab Interpretation (test code = 44070-4) Abnormal [facility] METABOLIC PANEL (NA, K, CL, CO2, GLUCOSE, BUN, CREATININE, CA)2022-11-10 17:59:59* Test Item Value Reference Range Interpretation Comme nts NA (test code = 2812810242) 121 mmol/L 135-145 L K (test code = 8084583586) 4.3 mmol/L 3.5-5.0 CL (test code = 0446933512) 81 mmol/L 98-108 L CO2 TOTAL (test code = 6005129103) 38 mmol/L 23-31 H AGAP (test code = 1076960384) 2 2-16 BUN (test code = 2766035826) 15 mg/dL 7-23 GLUCOSE (test code = 7570379379) 113 mg/dL 70-110 H CREATININE (test code = 2979595814) 0.74 mg/dL 0.60-1.25 CALCIUM (test code = 1970144827) 7.5 mg/dL 8.6-10.6 L eGFR (test code = 8602051201) 106.5 mL/min/1.73m2 OMAYRA (test code = OMAYRA) [...] imaging tests). Lab Interpretation (test code = 73846-4) Abnormal [facility] [id number] 13:08:23* Test Item Value Reference Range Interpretation Comme nts NT-proBNP (test code = 2660205130) 177 pg/mL <=125 H OMAYRA (test code = OMAYRA) Biotin has been reported to cause a negative bias, interpret results relative to patient's use of biotin. Lab Interpretation (test code = 32159-7) [facility]normal [facility] [id number] 08:23:33* Test Item Value Reference Range Interpretation Comme nts TROPONIN I (test code = 6851850815) 0.004 ng/mL <=0.034 OMAYRA (test code = [...] of biotin. Lab Interpretation (test code = 04989-6) Normal [facility] (43076)2022-11-09 08:12:09* Test Item Value Reference Range Interpretation Comme nts NA (test code = 6437093186) 123 mmol/L 135-145 L K (test code = 0232601790) 4.2 mmol/L 3.5-5.0 CL (test code = 8196341566) 78 mmol/L 98-108 L CO2 TOTAL (test code = 9185220813) 34 mmol/L 23-31 H AGAP (test code = 9298883548) 11 2-16 BUN (test code = 6373930147) 8 mg/dL 7-23 GLUCOSE (test code = 8205182628) 113 mg/dL 70-110 H CREATININE (test code = 7221998415) 0.87 mg/dL 0.60-1.25 TOTAL BILI (test code = 6284150501) 1.2 mg/dL 0.1-1.1 H CALCIUM (test code = 8789562482) 8.8 mg/dL 8.6-10.6 T PROTEIN (test code = 8343319035) 7.6 g/dL 6.3-8.2 ALBUMIN (test code = 0902227998) 4.5 g/dL 3.5-5.0 ALK PHOS (test code = 0217657650) 72 U/L 34-122 ALTv (test code = 1742-6) 13 U/L 5-50 AST(SGOT) (test code = 2800552964) 13 U/L 13-40 eGFR (test code = 4546595467) 88.3 mL/min/1.73m2 OMAYRA (test code = OMAYRA) [...] imaging tests). Lab Interpretation (test code = 98544-2) Abnormal [facility], [id number] 08:11:14* Test Item Value Reference Range Interpretation Comme nts LIPASE (test code = 2942529383) 108 U/L 0-220 Lab Interpretation (test cod e = 16641-9) Normal [facility]CB WITH [id number] 07:59:28* Test Item Value Reference Range Interpretation Comme nts WBC (test code = 6690-2) 8.95 See_Comment [Automated Source Audioa MOLOME] The system which generated this result transmitted reference range: 4.20 - 10.70 10*3/?L. The reference range was not used to interpret this result as normal/abnormal. RBC (test code = 789-8) 5.07 See_Comment [Automated Source Audio[employer] MOLOME] The system which generated this result transmitted [...] 32.8 g/dL 31.2-35.0 RDW-SD (test code = 85475-6) 41.1 fL 38.5-51.6 RDW-CV (test code = 788-0) 12.5 % 12.1-15.4 PLT (test code = 777-3) 235 See_Comment [Automated Source [employer] MOLOME] The system which generated this result transmitted reference range: 150 - 328 10*3/?L. The reference range was not used to interpret this result as normal/abnormal. MPV (test code = 15341-8) 9.8 fL 9.8-13.0 NRBC/100 WBC (test code = 4134860421) 0.0 See_Comment [Automated [employer] ssage] The system which generated this result transmitted reference range: 0.0 - 10.0 /100 WBCs. The reference range was not used to interpret this result as normal/abnormal. NRBC x10^3 (test code = 6683598969) See_Comment [Automated [employer] ssage] The system which generated this result transmitted reference range: 10*3/?L. The reference range was not used to interpret this result as normal/abnormal. GRAN MAT (NEUT) % (test code = 770-8) 56.9 % IMM GRAN % (test code = 3097722020) 0.40 % LYMPH % (test code = 736-9) 29.4 % MONO % (test code = 5905-5) 9.5 % EOS % (test code = 713-8) 3.0 % BASO % (test code = 706-2) 0.8 % GRAN MAT x10^3(ANC) (test code = 6806636184) 5.09 10*3/uL 1.99-6.95 IMM GRAN x10^3 (test code = 4036989546) 0.04 10*3/uL 0.00-0.06 LYMPH x10^3 (test code = 731-0) 2.63 10*3/uL 1.09-3.23 MONO x10^3 (test code = 742-7) 0.85 10*3/uL 0.36-1.02 EOS x10^3 (test code = 711-2) 0.27 10*3/uL 0.06-0.53 BASO x10^3 (test code = 704-7) 0.07 10*3/uL 0.01-0.09 [facility], [id number] 19:05:00 * Test Item Value Reference Range [...] U APPEAR (test code = 3267) [facility] [id number] 19:05:00 * Test Item Value Reference Range [...] U APPEAR (test code = 3267) clear [facility] acute hospital URINALYSIS, [id number] 19:05:00 * Test Item Value Reference Range [...] U APPEAR (test code = 3267) clear [facility] ABDOMEN PELVIS W [id number] 17:53:531. ?No hydronephrosis or nephrolithiasis. 2. ?Mild [...] hernia with mild circumferential distalesophageal thickening (2:16). [place] density within the distal stomach andat the [...] hernia with mild circumferential distalesophageal thickening (2:16). [place] density within the distal stomach andat the [...] small right hydrocele.5. Additional findings as above. [facility] PidjohVsvwjyfqtf2991-61-18 17:37:38* Test Item Value Reference Range Interpretation Comme nts APPEARANCE (test code = 2098253895) Cloudy Clear A COLOR (test code = 4679931052) Red Yellow A PH (test code = 2824579694) 4.8-8.0 SP GRAVITY (test code = 4016666118) 1.003-1.030 GLU U QUAL (test code = 9652158015) 50 mg/dL Normal A BLOOD (test code = 3346904129) 3+ Negative A KETONES (test code = 3782350822) Negative Negative PROTEIN (test code = 2887-8) 100 mg/dL Negative A UROBILIN (test code = 5138787861) Normal Normal BILIRUBIN (test code = 4302302098) Negative Negative NITRITE (test code = 9944594712) Negative Negative LEUK DIANELYS (test code = 3319893495) Negative Negative RBC/HPF (test code = 5541614529) >182 See_Comment H [Automated messa ge] The system which generated this result transmitted reference range: 0 - 3 HPF. The reference range was not used to interpret this result as normal/abnormal. WBC/HPF (test code = 7229728134) >182 See_Comment H [Automated messa ge] The system which generated this result transmitted reference range: 0 - 5 HPF. The reference range was not used to interpret this result as normal/abnormal. BACTERIA (test code = 0094881209) Moderate Negative A WBC CLUMPS (test code = 4181760810) See_Comment H [Automated messa ge] The system which generated this result transmitted reference range: <=1 HPF. The reference range was not used to interpret this result as normal/abnormal. Lab Interpretation (test code = 71459-6) Abnormal [facility] Metabolic Panel (NA, K, CL, CO2, GLUCOSE, BUN, CREATININE, CA)2020-12-12 17:13:57* Test Item Value Reference Range Interpretation Comme nts NA (test code = 7203667504) 140 mmol/L 135-145 K (test code = 6952710013) 4.5 mmol/L 3.5-5.0 CL (test code = 0607429725) 100 mmol/L 98-108 CO2 TOTAL (test code = 7445307049) 35 mmol/L 23-31 H AGAP (test code = 4354926178) 2-16 BUN (test code = 3143477091) 25 mg/dL 7-23 H GLUCOSE (test code = 8730873514) 114 mg/dL 70-110 H CREATININE (test code = 9564172392) 1.18 mg/dL 0.60-1.25 CALCIUM (test code = 9234048218) 9.0 mg/dL 8.6-10.6 eGFR Calculation (Non-) (test code = 9309139216) mL/min/1.73m2 eGFR Calculation () (test code = 1051964034) mL/min/1.73m2 OMAYRA (test code = OMAYRA) Association [...] imaging tests). Lab Interpretation (test code = 63821-4) Abnormal [facility] with Jazzykxrtxca8738-20-51 16:56:10* Test Item Value Reference Range Interpretation Comme nts WBC (test code = 6690-2) See_Comment [Automated Linkurious] The system which generated this result transmitted [...] 32.8 g/dL 31.2-35.0 RDW-SD (test code = 18017-9) 42.9 fL 38.5-51.6 RDW-CV (test code = 788-0) 11.9 % 12.1-15.4 L PLT (test code = 777-3) See_Comment [Automated Source Audioa ge] The system which generated this result transmitted reference range: 150 - 328 10*3/?L. The reference range was not used to interpret this result as normal/abnormal. MPV (test code = 16729-3) 10.8 fL 9.8-13.0 NRBC/100 WBC (test code = 9708773331) See_Comment [Automated [employer] ssage] The system which generated this result transmitted reference range: 0.0 - 10.0 /100 WBCs. The reference range was not used to interpret this result as normal/abnormal. NRBC x10^3 (test code = 4721784624) <0.01 See_Comment [Automated messa ge] The system which generated this result transmitted reference range: 10*3/?L. The reference range was not used to interpret this result as normal/abnormal. GRAN MAT (NEUT) % (test code = 770-8) 63.5 % IMM GRAN % (test code = 5980516201) 0.40 % LYMPH % (test code = 736-9) 23.9 % MONO % (test code = 5905-5) 6.7 % EOS % (test code = 713-8) 4.3 % BASO % (test code = 706-2) 1.2 % GRAN MAT x10^3(ANC) (test code = 9295148491) 4.27 10*3/uL 1.99-6.95 IMM GRAN x10^3 (test code = 5371913638) 0.03 10*3/uL 0.00-0.06 LYMPH x10^3 (test code = 731-0) 1.61 10*3/uL 1.09-3.23 MONO x10^3 (test code = 742-7) 0.45 10*3/uL 0.36-1.02 EOS x10^3 (test code = 711-2) 0.29 10*3/uL 0.06-0.53 BASO x10^3 (test code = 704-7) 0.08 10*3/uL 0.01-0.09 Lab Interpretation (test code = 28576-8) [facility] [id number] 18:56:00 * Test Item Value Reference Range [...] turbid Lab Interpretation (test cod e = 55616-2) [facility] [id number] 18:56:00 * Test Item Value Reference Range [...] turbid Lab Interpretation (test cod e = 27183-0) [facility]
[2023-09-11] MEDS ORDERED: CEFTRIAXONE 1000 MG/VIAL ONE (21:25)
[2023-09-11] MEDS ORDERED: PROMETHAZINE 25 MG TABLET ONE (21:26)
[2023-09-11] MEDS ORDERED: ALBUTEROL 2.5 MG/3 ML NEB SOL ONE (21:26)
[2023-09-11] MEDS ORDERED: IPRATROPIUM BROM 0.5MG/2.5ML ONE (21:26)
[2023-09-11] MEDS ORDERED: METHYLPREDNISOLONE 125 MG INJ ONE (21:26)
[2023-09-11] MEDS ORDERED: CODEINE 30MG/APAP 300MG TAB ONE (21:27)
[2023-09-11] MEDS ORDERED: NA CHLORIDE 0.9% 50 ML ONE (21:27)
[2023-09-11 22:05] LABS: Absolute Lymphocytes (CBC) 0.2 K/uL (0.7-4.9); Lymphocytes % 3.2 % (15.3-44.8); MCV 97.3 fL (80-100); MPV 8.6 fL (7.6-11.3); Platelets 177 thou/uL (152-406)
[2023-09-11] MEDS ORDERED: DIAZEPAM 5 MG TABLET ONE (22:05)
--- NOTE | 2023-09-11 22:07 | RAD REPORT ---
EXAM DESCRIPTION: RADChest Single View09/11/2023 9:38 pm CLINICAL HISTORY: COPD COMPARISON: Chest Single View dated 09/11/2023; Chest Single View dated 09/08/2023; Chest Single Vie w dated 08/27/2023; Chest Single View dated 08/19/2023 TECHNIQUE: Portable AP view of the chest. FINDINGS: The lungs are clear. Hyperinflation and hyperlucency suggesting COPD. Left chest wall pace r in place. No pneumothorax or effusion. The cardiomediastinal contours are unremarkable. IMPRESSION: No acute cardiopulmonary process.
[2023-09-11 22:14] LABS: Protime INR 1.05
[2023-09-11 22:21] LABS: ALT/SGPT 14 U/L (16-61); Albumin 2.8 g/dL (3.4-5.0); Alkaline Phosphatase 48 U/L (45-117); BUN Blood Urea Nitrogen 31 mg/dL (7-18); Bicarbonate 40 mEq/L (21-32); Bilirubin Direct 0.1 mg/dL (0-0.2); Bilirubin Indirect, Calculated 0.4 mg/dL (0.2-0.8); Bilirubin Total 0.5 mg/dL (0.2-1.0); Creatine Phosphokinase 23 U/L (39-308); Glomerular Filtration Rate 101 ml/min (=/>90); Glucose Level 120 mg/dL (74-106); Lipase 26 U/L (13-75); Magnesium 2.2 mg/dL (1.6-2.4); NT PRO-BNP 316 pg/mL (<125); Potassium 3.9 mEq/L (3.5-5.1); Protein, Total 5.7 g/dL (6.4-8.2); Sodium Level 139 mEq/L (136-145); Troponin High Sensitivity 7.6 pg/mL (<58.9)
[2023-09-11 22:23] LABS: AST/SGOT < 4 U/L (15-37)
[2023-09-11 22:41] LABS: SARS-CoV-2 Antigen Rapid Res Negative (Negative)
--- NOTE | 2023-09-11 22:47 | EDPHYS ---
Physician Documentation [facility] Name: Juan C Monge Age: 63 yrs Sex: Male : 1960 Arrival Date: 09/11/2023 Time: 20:43 Bed 3 Private MD: ED Physician Lexa Cross HPI: 09/11 20:55 This 63 yrs old Male presents to ER via Unassigned with complaints of sp4 generalized complaint . 22:38 63-year-old male presents with worsening dyspnea associated with dizziness associated sp4 with feeling unwell, generalized weakness. Patient was here earlier today and was assessed with COPD and was discharged home.. Patient felt unwell and was brought here for evaluation . . 22:39 Patient is active smoker smokes about half a pack a day. . sp4 22:40 Patient was here earlier today was prescribed prednisone but did not feel in his sp4 prescription . . Historical: - Allergies: 20:57 No Known Allergies; iw - PMHx: 20:57 CVA; Hyperlipidemia; Hypertension; Myocardial infarction; skull fracture; iw 20:57 COPD; jj7 - PSHx: 20:57 Appendectomy; pacemaker; iw - Immunization history:: Adult Immunizations unknown. - Social history:: Smoking status: Patient reports the use of cigarette tobacco products, smokes one-half pack cigarettes per day, Patient/guardian denies using alcohol, street drugs, Smoking status: Patient reports the use of cigarette tobacco products, smokes one-half pack cigarettes per day. - Family history:: not pertinent. ROS: 22:40 Constitutional: Positive generalized weakness , positive shortness of breath , positive sp4 cough, positive feeling unwell , positive emotional upset 22:40 All other systems are negative, Exam: 22:40 Constitutional: This is a well developed, well nourished patient who is awake, alert, sp4 and in no acute distress. Head/Face: Normocephalic, atraumatic. Eyes: Pupils equal round and reactive to light, extra-ocular motions intact. Lids and lashes normal. Conjunctiva and sclera are not injected. Cornea within normal limits. Periorbital areas with no swelling, redness, or edema. ENT: Nares patent. No nasal discharge, no septal abnormalities noted. Tympanic membranes are normal and external auditory canals are clear. Oropharynx with no redness, swelling, or masses, exudates, or evidence of obstruction, uvula midline. Mucous membranes moist. Neck: Trachea midline, no thyromegaly or masses palpated, and no cervical lymphadenopathy. Supple, full range of motion without nuchal rigidity, or vertebral point tenderness. Chest/axilla: Normal chest wall appearance and motion. Nontender with no deformity. No lesions are appreciated. Cardiovascular: Regular rate and rhythm with a normal S1 and S2. No gallops, murmurs, or rubs. Normal PMI, no JVD. No pulse deficits. Respiratory: Lungs have equal breath sounds bilaterally, positive bilateral expiratory wheezes, persistent cough on exam Abdomen/GI: Soft, non-tender, with normal bowel sounds. No distension or tympany. No guarding or rebound. No evidence of tenderness throughout. Back: No spinal tenderness. No costovertebral tenderness. Skin: Warm, dry with normal turgor. Normal color with no rashes, no lesions, and no evidence of cellulitis. MS/ Extremity: Pulses equal, no cyanosis. Neurovascular intact. Full, normal range of motion. Neuro: Awake and alert, GCS 15, oriented to person, place, time, and situation. Cranial nerves II-XII grossly intact. Motor strength 5/5 in all extremities. Sensory grossly intact. Psych: Awake, alert, with orientation to person, place and time. Behavior, mood, and affect are within normal limits 22:40 ECG was reviewed by the Attending Physician. EKG at 2118 reveals sinus bradycardia at sp4 the rate of 57. Otherwise normal EKG Vital Signs: 20:52 BP 153 / 73; Pulse 64; Resp 18; Temp 97.8; Pulse Ox 88% ; Weight 68.04 kg; Height 5 ft. iw 10 in. ; 21:58 BP 155 / 77; Pulse 65; Resp 17; Pulse Ox 100% on Nebulizer Mask; jj7 22:10 BP 148 / 116; Pulse 80; Resp 16; Pulse Ox 100% on R/A; cp4 23:00 BP 125 / 60; Pulse 69; Resp 17; Pulse Ox 94% ; jj7 23:34 BP 123 / 59; Pulse 67; Resp 18; Pulse Ox 95% ; jj7 20:52 Body Mass Index 21.52 (68.04 kg, 177.8 cm) iw MDM: 21:03 Patient medically screened. sp4 22:45 Differential Diagnosis altered mental status, sepsis, flu. Data reviewed: vital signs, sp4 nurses notes, old medical records, lab test result(s), EKG, radiologic studies, plain films. Consideration of Admission/Observation Patient was admitted/placed on observation. Escalation of care including admission/observation considered. Management of patient was discussed with the following: Hospitalist: Stas SAWYER . ED course: This is patient's second visit for COPD symptoms, patient at this time warrants admission for COPD management. Requested admission from hospitalist. Patient technically has a failure of outpatient management strategy. . 09/11 21:02 Order name: BMP; Complete Time: 22:35 [facility] 09/11 21:02 Order name: Blood Culture Adult (2) [facility] 09/11 21:02 Order name: CBC with Diff [facility] 09/11 21:02 Order name: CPK; Complete Time: 22:35 [facility] 09/11 21:02 Order name: Hepatic Function; Complete Time: 22:35 [facility] 09/11 21:02 Order name: Lipase; Complete Time: 22:35 4 09/11 21:02 Order name: Magnesium; Complete Time: 22:35 4 09/11 21:02 Order name: NT PRO-BNP; Complete Time: 22:35 4 09/11 21:02 Order name: PT-INR; Complete Time: 22:35 4 09/11 21:02 Order name: Ptt, Activated; Complete Time: 22:35 4 09/11 21:02 Order name: Troponin HS; Complete Time: 22:35 4 09/11 21:03 Order name: SARS RAPID; Complete Time: 22:45 sp4 09/11 21:03 Order name: Influenza Screen (a \T\ B) [facility] 09/11 22:32 Order name: Manual Differential EDMS 09/11 23:06 Order name: Basic Metabolic Panel EDMS 09/11 23:06 Order name: Basic Metabolic Panel EDMS 09/11 23:06 Order name: CBC with Automated Diff EDMS 09/11 23:06 Order name: CBC with Automated Diff EDMS 09/11 21:02 Order name: XRAY CXR (1 view); Complete Time: 22:35 4 09/11 21:02 Order name: EKG; Complete Time: 21:03 sp4 09/11 21:02 Order name: Cardiac monitoring; Complete Time: : sp4 09/11 21:02 Order name: EKG - Nurse/Tech; Complete Time: sp4 09/11 21: Order name: IV Saline Lock; Complete Time: sp4 09/11 21:02 Order name: Labs collected and sent; Complete Time: sp4 09/11 21:02 Order name: O2 Per Protocol; Complete Time: sp4 09/11 21: Order name: O2 Sat Monitoring; Complete Time: :4 EC:40 Rate is 57 beats/min. Rhythm is regular, Sinus bradycardia. QRS [place] is Normal. [place] sp4 interval is normal. QRS interval is normal. QT interval is normal. No Q waves. T waves are Normal. No ST changes noted. Clinical impression: No evidence of ischemia. Interpreted by me. Reviewed by me. Administered Medications: :54 Drug: Albuterol Inhalation 2.5 mg Inhalation every 20 minutes x3 Route: Inhalation; 21:54 Drug: Ipratropium Inhalation Aerosol 0.5 mg Inhalation once; Every 20 min for a total jj7 of 3 treatments x3 Route: Inhalation; 21:54 Drug: Acetaminophen-Codeine PO (300 mg-30 mg) 2 tabs PO once; RASS on ADMIN: Combtv4, jj7 Very Agttd3, Agttd2, Rstlss1, AlertClm0, Drwsy-1, Lt Sdtn-2, Mod Sdtn-3, Dp Sdtn-4, UnArsble-5 Route: PO; 22:30 Follow up: Response: Marked relief of symptoms j 21:54 Drug: Promethazine PO 25 mg PO once Route: PO; jj7 23:51 Follow up: Response: Marked relief of symptoms j7 21:54 Drug: Rocephin - Rocephin (cefTRIAXone) IVPB 1 grams IVPB once over 30 mins; (mix in 50 jj7 mL NS) Route: IVPB; Infused Over: 30 mins; Site: left forearm; 22:20 Follow up: IV Status: Completed infusion j7 22:01 Drug: MethylPrednisoLONE IVP 125 mg IVP once Route: IVP; Site: left forearm; jj7 23:56 Follow up: Response: No adverse reaction jj7 22:15 Drug: Diazepam PO 5 mg PO once Route: PO; j7 23:56 Follow up: Response: Marked relief of symptoms jj7 22:37 Drug: Albuterol Inhalation 2.5 mg Inhalation every 20 minutes x3 Route: Inhalation; jj7 22:37 Drug: Albuterol Inhalation 2.5 mg Inhalation every 20 minutes x3 Route: Inhalation; jj7 22:37 Drug: Ipratropium Inhalation Aerosol 0.5 mg Inhalation once; Every 20 min for a total jj7 of 3 treatments x3 Route: Inhalation; 22:38 Drug: Ipratropium Inhalation Aerosol 0.5 mg Inhalation once; Every 20 min for a total jj7 of 3 treatments x3 Route: Inhalation; Disposition Summary: 09/11/23 22:47 Hospitalization Ordered Notes: Hospitalization Status: Observation sp4 Provider: Rodrigue Mcclelland sp4 Location: Telemetry/MedSurg (observation) sp4 Condition: Stable sp4 Problem: new sp4 Symptoms: have improved sp4 Bed/Room Type: Standard sp4 Room Assignment: 213(09/11/23 23:29) as6 Diagnosis - COPD/ Chronic obstructive pulmonary disease with (acute) exacerbation sp4 Forms: - Medication Reconciliation Form sp4 - SBAR form sp4 - Leadership Thank You Letter sp4 Signatures: Dispatcher [employer] Patricia March RN RN Ashvin Forbes RN RN as6 Kortney Joiner RN RN jj7 Potepalov, Sergey, MD MD sp4 Beatriz Dawn cp4 Corrections: (The following items were deleted from the chart) :56 20:57 Immunization history: Adult Immunizations unknown, 22: 20:57 PMHx: Atrial Fib; 22: 20:57 PMHx: COPD; 22: 20:57 Social history: Smoking status: Patient reports the use of cigarette tobacco j products, smokes one-half pack cigarettes per day, Patient/guardian denies using alcohol, street drugs, : 20:57 PMHx: Atrial Fib; [facility] 23: 22:47 sp4 as6
--- NOTE | 2023-09-11 22:47 | ER ---
Nurse's Notes [facility] Name: Juan C Monge Age: 63 yrs Sex: Male : 1960 Arrival Date: 09/11/2023 Time: 20:43 Bed 3 Private MD: Diagnosis: COPD/ Chronic obstructive pulmonary disease with (acute) exacerbation Presentation: 09/11 20:52 Chief complaint: Patient states: SOB. PT WAS SEEN IN ER EARLIER TODAY FOR SOB. STATES iw HE WAS ALSO HERE FOR SOB. PT STATES HE ISN'T GETTING ALONG WITH HIS GIRLFRIEND, CONRAD SMOKING AND ANXIETY IS MAKING IT WORSE. Coronavirus screen: At this time, the client does not indicate any symptoms associated with coronavirus-19. Ebola Screen: No symptoms or risks identified at this time. Initial Sepsis Screen: Does the patient meet any 2 criteria? No. Patient's initial sepsis screen is negative. Does the patient have a suspected source of infection? No. Patient's initial sepsis screen is negative. Risk Assessment: Do you want to hurt yourself or someone else? Patient reports no desire to harm self or others. Onset of symptoms was September 10, 2023. 20:52 Method Of Arrival: Ambulatory iw 20:52 Acuity: JESSI 4 iw Triage Assessment: 20:57 General: Appears distressed, uncomfortable, Behavior is cooperative, appropriate for iw age. Pain: Denies pain. Respiratory: Airway is patent Trachea Respiratory effort is labored, using tripod position. Historical: - Allergies: 20:57 No Known Allergies; iw - PMHx: 20:57 CVA; Hyperlipidemia; Hypertension; Myocardial infarction; skull fracture; iw 20:57 COPD; jj7 - PSHx: 20:57 Appendectomy; pacemaker; iw - Immunization history:: Adult Immunizations unknown. - Social history:: Smoking status: Patient reports the use of cigarette tobacco products, smokes one-half pack cigarettes per day, Patient/guardian denies using alcohol, street drugs, Smoking status: Patient reports the use of cigarette tobacco products, smokes one-half pack cigarettes per day. - Family history:: not pertinent. Screenin:57 [facility] ED Fall Risk Assessment (Adult) History of falling in the last 3 months, jj7 including since admission No falls in past 3 months (0 pts) Confusion or Disorientation No (0 pts) Intoxicated or Sedated No (0 pts) Impaired Gait No (0 pts) Mobility Assist Device Used No (0 pt) Altered Elimination No (0 pt) Score/Fall Risk Level 0 - 2 = Low Risk Oriented to surroundings, Maintained a safe environment, Educated pt \T\ family on fall prevention, incl call for assistance when getting out of bed. 21:00 [facility] ED Fall Risk Assessment (Adult) History of falling in the last 3 months, iw including since admission No falls in past 3 months (0 pts) Confusion or Disorientation No (0 pts) Intoxicated or Sedated No (0 pts) Impaired Gait Yes (1 pt) Mobility Assist Device Used No (0 pt) Altered Elimination No (0 pt) Score/Fall Risk Level 0 - 2 = Low Risk Oriented to surroundings, Maintained a safe environment, Educated pt \T\ family on fall prevention, incl call for assistance when getting out of bed. Abuse screen: Denies threats or abuse. Nutritional screening: No deficits noted. Tuberculosis screening: No symptoms or risk factors identified. Assessment: 20:57 Reassessment: SEE TRIAGE ASSESSMENT. jj7 22:07 Reassessment: Patient appears in no apparent distress at this time. Patient and/or cp4 family updated on plan of care and expected duration. Pain level reassessed. Patient is alert, oriented x 3, equal unlabored respirations, skin warm/dry/pink. Vital Signs: 20:52 BP 153 / 73; Pulse 64; Resp 18; Temp 97.8; Pulse Ox 88% ; Weight 68.04 kg; Height 5 ft. iw 10 in. ; 21:58 BP 155 / 77; Pulse 65; Resp 17; Pulse Ox 100% on Nebulizer Mask; jj7 22:10 BP 148 / 116; Pulse 80; Resp 16; Pulse Ox 100% on R/A; cp4 23:00 BP 125 / 60; Pulse 69; Resp 17; Pulse Ox 94% ; jj7 23:34 BP 123 / 59; Pulse 67; Resp 18; Pulse Ox 95% ; jj7 20:52 Body Mass Index 21.52 (68.04 kg, 177.8 cm) iw ED Course: 20:48 Patient arrived in ED. as6 20:55 Lexa Cross MD is Attending Physician. sp4 20:57 Triage completed. iw 20:57 Patient has correct armband on for positive identification. Bed in low position. Call j7 light in reach. Warm blanket given. 20:57 Arm band placed on right wrist. jj7 20:57 Patient has correct armband on for positive identification. Bed in low position. Call jj7 light in reach. Warm blanket given. 20:57 No provider procedures requiring assistance completed. jj7 21:00 Patient has correct armband on for positive identification. Bed in low position. Call iw light in reach. Warm blanket given. 21:00 Oxygen administration via nasal cannula \T\ 2L/min Response to oxygen therapy: symptoms jj7 improved. 21:40 XRAY CXR (1 view) In Process Unspecified. EDMS 21:53 Troponin HS Sent. iw 21:53 Ptt, Activated Sent. iw 21:53 PT-INR Sent. iw 21:53 NT PRO-BNP Sent. iw 21:53 Magnesium Sent. iw 21:53 Lipase Sent. iw 21:53 Hepatic Function Sent. iw 21:53 CPK Sent. iw 21:53 BMP Sent. iw 21:53 Blood Culture Adult (2) Sent. iw 21:53 CBC with Diff Sent. iw 21:54 SARS RAPID Sent. iw 21:54 Influenza Screen (a \T\ B) Sent. iw 22:09 Primary Nurse role handed off by Patricia Narayan RN jj7 22:09 Kortney Joiner, SERA is Primary Nurse. jj7 22:46 Rodrigue Mcclelland MD is Hospitalizing Provider. sp4 23:34 Patient admitted, IV remains in place. jj7 Administered Medications: 21:54 Drug: Albuterol Inhalation 2.5 mg Inhalation every 20 minutes x3 Route: Inhalation; jj7 21:54 Drug: Ipratropium Inhalation Aerosol 0.5 mg Inhalation once; Every 20 min for a total jj7 of 3 treatments x3 Route: Inhalation; 21:54 Drug: Acetaminophen-Codeine PO (300 mg-30 mg) 2 tabs PO once; RASS on ADMIN: Combtv4, jj7 Very Agttd3, Agttd2, Rstlss1, AlertClm0, Drwsy-1, Lt Sdtn-2, Mod Sdtn-3, Dp Sdtn-4, UnArsble-5 Route: PO; 22:30 Follow up: Response: Marked relief of symptoms jj7 21:54 Drug: Promethazine PO 25 mg PO once Route: PO; jj7 23:51 Follow up: Response: Marked relief of symptoms jj7 21:54 Drug: Rocephin - Rocephin (cefTRIAXone) IVPB 1 grams IVPB once over 30 mins; (mix in 50 jj7 mL NS) Route: IVPB; Infused Over: 30 mins; Site: left forearm; 22:20 Follow up: IV Status: Completed infusion jj7 22:01 Drug: MethylPrednisoLONE IVP 125 mg IVP once Route: IVP; Site: left forearm; jj7 23:56 Follow up: Response: No adverse reaction jj7 22:15 Drug: Diazepam PO 5 mg PO once Route: PO; jj7 23:56 Follow up: Response: Marked relief of symptoms jj7 22:37 Drug: Albuterol Inhalation 2.5 mg Inhalation every 20 minutes x3 Route: Inhalation; jj7 22:37 Drug: Albuterol Inhalation 2.5 mg Inhalation every 20 minutes x3 Route: Inhalation; jj7 22:37 Drug: Ipratropium Inhalation Aerosol 0.5 mg Inhalation once; Every 20 min for a total jj7 of 3 treatments x3 Route: Inhalation; 22:38 Drug: Ipratropium Inhalation Aerosol 0.5 mg Inhalation once; Every 20 min for a total jj7 of 3 treatments x3 Route: Inhalation; Medication: 20:57 VIS not applicable for this client. jj7 Outcome: 22:47 Decision to Hospitalize by Provider. sp4 23:34 Admitted to Med/surg via wheelchair, room 213, jj7 23:34 Condition: improved 23:55 Admitted to Med/surg Report called to QUITA ZAMORA jj7 09/12 00:07 Patient left the ED. jj7 Signatures: Dispatcher [employer] EDMS Patricia Narayan RN RN iw Slawson, Ashby, RN RN as6 Kortney Joiner RN RN jLexa Doyle MD MD sp4 Beatriz Dawn Corrections: (The following items were deleted from the chart) 09/11 21:56 20:57 Immunization history: Adult Immunizations unknown, jj7 21:58 21:54 Acetaminophen-Codeine PO (300 mg-30 mg) 2 tabs PO [facility]7 21:59 21:54 Promethazine PO 25 mg PO [facility] 22:00 21:54 Albuterol Inhalation 2.5 mg Inhalation [facility] 22: 21:54 Rocephin - Rocephin (cefTRIAXone) IVPB 1 grams IVPB in left forearm over 30 mins [facility] : 21:53 MethylPrednisoLONE IVP 125 mg IVP in left forearm [facility] : 21:53 Ipratropium Inhalation Aerosol 0.5 mg Inhalation [facility] : 21:54 Ipratropium Inhalation Aerosol 0.5 mg Inhalation [facility] : 20:57 PMHx: Atrial Fib; [facility] 20:57 PMHx: COPD; [facility] 22: 20:57 Social history: Smoking status: Patient reports the use of cigarette tobacco [facility] products, smokes one-half pack cigarettes per day, Patient/guardian denies using alcohol, street drugs, 20:57 PMHx: Atrial Fib; [place] [id number] 22: 21:00 Oxygen administration via nasal cannula \T\ 2L/min Response to oxygen therapy: [facility] symptoms improved. : 20:51 Patricia Narayan, RN is Primary Nurse. [facility] : 20:57 Arm band placed on right wrist. [facility] 22: 22:07 Diazepam PO 5 mg PO cp4 [facility]
[2023-09-11] MEDS ORDERED: ONDANSETRON 4 MG/2 ML VIAL IV PRN (23:00)
[2023-09-11] MEDS ORDERED: ACETAMINOPHEN 325 MG TABLET PO PRN (23:00)
[2023-09-11 23:07] LABS: Blood Morphology Comment NOT SEEN (NOT SEEN); Platelet Estimate ADEQ
--- NOTE | 2023-09-11 23:08 | P.HP ---
Certification for Inpatient Patient admitted to: Observation With expected LOS: <2 Midnights Practitioner: I am a practitioner with admitting privileges, knowledge of patient current condition, hospital course, and medical plan of care. Services: Services provided to patient in accordance with Admission requirements found in Title 42 Section 412.3 of the Code of Federal Regulations Patient History Date of Service: 09/12/23 Reason for admission: Pneumonia, COPD exacerbation. History of Present Illness: 63-year-old male patient who has a medical history significant for hypertension, hyperlipidemia, coronary artery disease, history of tobacco use who also had COPD who came to the ED with complaint of shortness of breath and cough. Cough is not productive of sputum. He denied overt fever, chills. He was initially evaluated in the ED a day prior and had a prescription of prednisone made for COPD exacerbation. Patient had not used his outpatient prednisone dose however began to have more cough and was significantly short of breath so he returned to the ED. He was worked up with a chest x-ray that showed no significant acute finding however because of concerns for infectious exacerbation of COPD, he was admitted for in hospital care. Allergies No Known Allergies Allergy (Verified 09/12/23 00:32) Home Medications: Atorvastatin Calcium [Lipitor] 40 mg PO BEDTIME 03/20/23 Rivaroxaban [Xarelto*] 1 tab PO DAILY 03/20/23 Carvedilol [Coreg] 25 mg PO BID 05/29/23 Fluticasone [Flonase 50MCG Nasal Exchange*] 1 spr CORNELIUS DAILY 05/29/23 Albuterol Inhaler [Ventolin Inhaler*] 2 puff IH Q6H PRN #1 inh 08/21/23 Albuterol Neb [Proventil 0.083% Neb Soln] 2.5 mg NEB [id number] #60 amp 08/21/23 Cefdinir [Cefdinir*] 300 mg PO BID #14 cap 08/21/23 Ipratropium Neb [Atrovent*] 0.5 mg NEB [id number] #60 amp 08/21/23 predniSONE [Deltasone] 20 mg PO BID #20 tab 08/21/23 - Past Medical/Surgical History Diabetic: No -: COPD -: Paroxysmal Afib -: HTN -: Tobacco abuse -: CVA -: skull fx -: defibrilator -: Home O2 -: Hx Hyponatremia (Dr. Hargrove/ Dr. Menjivar) -: Appendectomy Psychosocial/ Personal History: Patient lives with a girlfriend at home - Family History Father -: Diabetes Mother -: Diabetes - Social History Alcohol use: No CD- Drugs: No Caffeine use: Yes Review of Systems General: Unremarkable Eyes: Unremarkable ENT: Unremarkable Respiratory: Cough, Shortness of Breath Cardiovascular: Unremarkable Gastrointestinal: Unremarkable Genitourinary: Unremarkable Musculoskeletal: Unremarkable Integumentary: Unremarkable Neurological: Unremarkable Lymphatics: Unremarkable Physical Examination - Physical Exam General: Alert, Oriented x3 HEENT: Atraumatic Neck: Supple Respiratory: Diminished Cardiovascular: Regular rate/rhythm, Normal S1 S2 Gastrointestinal: Soft and benign Musculoskeletal: No swelling Neurological: Normal speech, Normal strength at 5/5 x4 extr - Studies Laboratory Data (last 24 hrs) 09/11/23 09/11/23 09/11/23 21:40 21:40 21:40 WBC 7.10 Hgb 11.3 L D Hct 35.0 L Plt Count 177 PT 11.5 INR 1.05 APTT 24.4 Sodium 139 Potassium 3.9 BUN 31 H Creatinine 0.74 Glucose 120 H Magnesium 2.2 Total Bilirubin 0.5 AST < 4 L ALT 14 L Alkaline Phosphatase 48 Lipase 26 Microbiology Data (last 24 hrs): 09/11/23 21:40 Nasopharnyx Influenza Type A Antigen Screen - Final 09/11/23 21:40 Nasopharnyx Influenza Type B Antigen Screen - Final Assessment and Plan - Plan COPD exacerbation: Patient has suspected infectious exacerbation of COPD We have started empiric antibiotic of Rocephin and azithromycin. Continue steroid therapy. Continue breathing treatment. Continue supplemental oxygen. Will discharge once clinically stabilized. Tobacco use stoppage advised. Hypertension: We will monitor vital signs per unit protocol and continue antihypertensive medications. Hyperlipidemia: We will continue statin therapy. Prophylaxis: Lovenox for DVT prophylaxis CODE STATUS: Full code Disposition: We will treat his COPD exacerbation and he will be discharged once he is deemed clinically stable. - Advance Directives Does patient have a Living Will: No Does patient have a Durable POA for Healthcare: No
[2023-09-12 00:12] VITALS: BMI 17.4
[2023-09-12] MEDS: IPRATROPIUM BROM 0.5MG/2.5ML NEB SCH ×4 (01:00→21:50)
[2023-09-12] MEDS: ALBUTEROL 2.5 MG/3 ML NEB SOL NEB SCH ×4 (01:00→21:50)
[2023-09-12 03:19] LABS: Absolute Lymphocytes (CBC) 0.2 K/uL (0.7-4.9); Hematocrit 33.6 % (39.6-49.0); Lymphocytes % 3.1 % (15.3-44.8); MCV 97.5 fL (80-100); Platelets 187 thou/uL (152-406); RBC Red Blood Cell Count 3.44 M/uL (4.33-5.43)
[2023-09-12] MEDS: ENOXAPARIN 40 MG/0.4 ML SQ SCH (08:43)
[2023-09-12] MEDS ORDERED: AZITHROMYCIN IV 500 MG in NA CHLORIDE 0.9% 250 ML IVPB SCH (09:00)
[2023-09-12] MEDS ORDERED: METHYLPREDNISOLONE 40 MG INJ IV SCH (09:00)
[2023-09-12] MEDS ORDERED: CEFTRIAXONE 1,000 MG in NA CHLORIDE 0.9% 50 ML IVPB SCH (09:00)
--- NOTE | 2023-09-12 09:33 | P.PN ---
Subjective Date of Service: 09/12/23 Chief Complaint: COPD exacerbation. 63 years of age recurrent hospital admissions for COPD exacerbation, worse over the past 3 days started complaining of worsening shortness of breath because the names of the medications that he uses apparently is compliant same no change Review of Systems General: Weakness Respiratory: Cough, Shortness of Breath Physical Examination - Vital Signs Temperature: 97.9 F Blood Pressure: 123/65 Pulse: 57 Respirations: 16 Pulse Ox (%): 93 - Physical Exam General: Alert, In no apparent distress, Oriented x3 Respiratory: Clear to auscultation bilaterally, Diminished Cardiovascular: No edema, Regular rate/rhythm, Normal S1 S2 Gastrointestinal: Normal bowel sounds, Soft and benign - Studies Laboratory Data (last 24 hrs) 09/11/23 09/11/23 09/11/23 21:40 21:40 21:40 WBC 7.10 Hgb 11.3 L D Hct 35.0 L Plt Count 177 PT 11.5 INR 1.05 APTT 24.4 Sodium 139 Potassium 3.9 BUN 31 H Creatinine 0.74 Glucose 120 H Magnesium 2.2 Total Bilirubin 0.5 AST < 4 L ALT 14 L Alkaline Phosphatase 48 Lipase 26 Microbiology Data (last 24 hrs): 09/11/23 21:40 Nasopharnyx Influenza Type A Antigen Screen - Final 09/11/23 21:40 Nasopharnyx Influenza Type B Antigen Screen - Final Assessment And Plan - Current Problems (Diagnosis) (1) COPD exacerbation Current Visit: No Status: Acute Plan: 63 years of age readmitted again with COPD exacerbation shows hyperinflation no evidence of pneumonia reviewed mildly anemic home medications including Daliresp p.o. prednisone add p.o. Zithromax for anti-inflammatory purposes signs oxygenation satisfactory ambulate possible discharge
[2023-09-12] MEDS ORDERED: PNEUMOCOCCAL VACCINE 0.5 ML IMVAC ONE (10:00)
[2023-09-12] MEDS: ROFLUMILAST 500 MCG TABLET PO SCH (11:17)
[2023-09-12] MEDS: NICOTINE 21 MG/PAT TD SCH (19:47)
[2023-09-12] MEDS: predniSONE 20 MG TAB PO SCH (19:47)
[2023-09-12] MEDS ORDERED: DIAZEPAM 5 MG TABLET PO ONE (21:32)
[2023-09-13] MEDS: ALBUTEROL 2.5 MG/3 ML NEB SOL NEB SCH ×3 (01:00→13:00)
[2023-09-13] MEDS: IPRATROPIUM BROM 0.5MG/2.5ML NEB SCH ×3 (01:00→14:13)
[2023-09-13] MEDS ORDERED: ALBUTEROL 2.5 MG/3 ML NEB SOL NEB ONE (08:00)
[2023-09-13] MEDS ORDERED: IPRATROPIUM BROM 0.5MG/2.5ML IH ONE (08:00)
[2023-09-13] MEDS: ROFLUMILAST 500 MCG TABLET PO SCH (08:14)
[2023-09-13] MEDS: NICOTINE 21 MG/PAT TD SCH (08:15)
[2023-09-13] MEDS: ENOXAPARIN 40 MG/0.4 ML SQ SCH (08:16)
[2023-09-13] MEDS: predniSONE 20 MG TAB PO SCH (08:16)
[2023-09-13] MEDS ORDERED: AZITHROMYCIN 250 MG TAB PO SCH (09:00)
[2023-09-13 10:23] VITALS: O2SAT 95
[2023-09-13 10:54] VITALS: BP 139/75; TEMP 96.8
--- NOTE | 2023-09-13 16:05 | P.PN ---
Subjective Date of Service: 09/13/23 Chief Complaint: COPD exacerbation. Patient reports some improvement in his shortness of breath. He is tolerating baseline oxygen-2 L by nasal cannula. Physical Examination - Vital Signs Temperature: 96.8 F Blood Pressure: 139/75 Pulse: 72 Respirations: 19 Pulse Ox (%): 98 - Physical Exam General: Alert, In no apparent distress, Oriented x3 HEENT: Mucous membr. moist/pink Neck: Supple, JVD not distended Respiratory: Diminished (Bilateral) Cardiovascular: No edema, Regular rate/rhythm, Normal S1 S2 Gastrointestinal: Normal bowel sounds, Soft and benign, Non-distended, No tenderness Musculoskeletal: No swelling Integumentary: No rashes Neurological: Normal strength at 5/5 x4 extr Assessment And Plan - Plan Diagnosis COPD exacerbation Chronic respiratory failure with hypoxia Essential hypertension Hyperlipidemia COPD exacerbation/chronic respiratory failure with hypoxia Patient has suspected infectious exacerbation of COPD. Clear chest x-ray. Continue antibiotics Continue steroid therapy. Continue breathing treatment. Pulmonary consult. Tobacco cessation advised. Hypertension: Continue home antihypertensive medications. Hyperlipidemia: Continue statin therapy. DVT Prophylaxis: Lovenox. CODE STATUS: Full code
--- NOTE | 2023-09-13 16:44 | P.DS ---
Admission Date: 09/11/23 Discharge Date: 09/13/23 Disposition: ROUTINE DISCHARGE Discharge Condition: FAIR Reason for Admission: COPD exacerbation. Brief History of Present Illness: 63-year-old male patient who has a medical history significant for hypertension, hyperlipidemia, coronary artery disease, history of tobacco use, COPD, chronic respiratory failure on home oxygen who came to the ED with complaint of shortness of breath and productive cough. He denied overt fever, chills. He was initially evaluated in the ED a day prior and had a prescription of prednisone made for COPD exacerbation. Patient had not used his outpatient prednisone dose however began to have more cough and was significantly short of breath so he returned to the ED. He was worked up with a chest x-ray that showed no significant acute finding however because of concerns for infectious exacerbation of COPD, he was hospitalized for further management. Hospital Course: Diagnosis COPD exacerbation Chronic respiratory failure with hypoxia Essential hypertension Hyperlipidemia COPD exacerbation/chronic respiratory failure with hypoxia Suspected infectious exacerbation of COPD. Clear chest x-ray. Patient treated empirically with Zithromax placed on steroid therapy He also received breathing treatment. Critical condition improved to baseline. He has good oxygen saturation on his home oxygen. Nursing staff report patient actually walked out for a while without his home oxygen. Tobacco cessation advised. Patient is currently at baseline and is deemed stable for discharge. Hypertension: Resume home medications on discharge. Hyperlipidemia: Resume home medications on discharge. Vital Signs/Physical Exam: Temp Pulse Resp BP Pulse Ox 96.8 F 72 19 139/75 98 09/13/23 16:12 09/13/23 16:12 09/13/23 16:12 09/13/23 16:12 09/13/23 16:12 General: Alert, In no apparent distress, Oriented x3 HEENT: Mucous membr. moist/pink Neck: Supple, JVD not distended Respiratory: Clear to auscultation bilaterally, Normal air movement Cardiovascular: No edema, Regular rate/rhythm, Normal S1 S2 Gastrointestinal: Normal bowel sounds, Soft and benign, Non-distended, No tenderness Musculoskeletal: No swelling Integumentary: No rashes, No cyanosis Neurological: Normal strength at 5/5 x4 extr Laboratory Data at Discharge: WBC 5.70 thou/uL (4.3-10.9) 09/12/23 03:00 Hgb 10.9 g/dL (13.6-17.9) L 09/12/23 03:00 Hct 33.6 % (39.6-49.0) L 09/12/23 03:00 Plt Count 187 thou/uL (152-406) 09/12/23 03:00 PT 11.5 SECONDS (9.5-12.5) 09/11/23 21:40 INR 1.05 09/11/23 21:40 APTT 24.4 SECONDS (24.3-36.9) 09/11/23 21:40 Sodium 141 mEq/L (136-145) 09/12/23 03:00 Potassium 4.0 mEq/L (3.5-5.1) 09/12/23 03:00 BUN 33 mg/dL (7-18) H 09/12/23 03:00 Creatinine 0.93 mg/dL (0.70-1.30) 09/12/23 03:00 Glucose 302 mg/dL (74-106) H 09/12/23 03:00 Magnesium 2.2 mg/dL (1.6-2.4) 09/11/23 21:40 Total Bilirubin 0.5 mg/dL (0.2-1.0) 09/11/23 21:40 AST < 4 U/L (15-37) L 09/11/23 21:40 ALT 14 U/L (16-61) L 09/11/23 21:40 Alkaline Phosphatase 48 U/L (45-117) 09/11/23 21:40 Lipase 26 U/L (13-75) 09/11/23 21:40 Home Medications: Azithromycin Tab [Zithromax*] 500 mg PO DAILY #8 tab 09/13/23 Roflumilast [Daliresp*] 500 mcg PO DAILY #0 09/13/23 predniSONE [Prednisone*] 20 mg PO BID #10 tab 09/13/23 New Medications: predniSONE [Prednisone*] 20 mg PO BID #10 tab Azithromycin Tab [Zithromax*] 500 mg PO DAILY #8 tab Diet: AHA Activity: Ad dione Followup: Dameon Cedillo MD [ACTIVE - CAN ADMIT] - (Within 2 weeks.) Time spent managing pt's care (in minutes): 28
--- NOTE | 2023-09-15 13:32 | EKG ---
Test Date: 2023-09-11 Test Time: 21:19:32 Customer Experience Retail Clerk: LAURA MEASUREMENT RESULTS: Intervals: Rate: 57 RI: 138 QRSD: 94 QT: 442 QTc: 430 [place]: P: 82 RI: 138 QRS: 84 T: 84 INTERPRETIVE STATEMENTS: Sinus bradycardia Otherwise normal ECG Compared to ECG 09/11/2023 12:56:25 Sinus rhythm no longer present Electronically Signed On 09-15-23 13:24:57 DATA MANAGEMENT SPECIALIST by Ric Pandya
== END 2023-09-13 19:20 | disposition home or self-care (01) ==
LOC: ER 20:43 → ERHOLD 23:00 → 2ND 23:40
PROVIDERS: ADMIT Internal Medicine Nephrology; ATTEND Internal Medicine
DX: J44.1 Chronic obstructive pulmonary disease with (acute) exacerbation (principal); J96.11 Chronic respiratory failure with hypoxia; I10 Essential (primary) hypertension; E78.5 Hyperlipidemia, unspecified; I25.10 Atherosclerotic heart disease of native coronary artery without angina pectoris; R06.02 Shortness of breath; R05.9 Cough, unspecified; F17.210 Nicotine dependence, cigarettes, uncomplicated; Z11.52 Encounter for screening for COVID-19
CPT/HCPCS: 96365; 93005; 87040 ×2; 85025 ×2; 80048 ×2; 36415; 83735; 82550; 85610; 80076; 85730; 84484; 83690; 83880; 87804 ×2; 71045; 90471; 90732; 94640; 96375; 99285; 87811; Q0169; J7512 ×2; J7613 ×6; J7644 ×6; J1650 ×2; J2930; J7050; J2920; J0696 ×2; G0378 ×3

== ENCOUNTER → 2023-09-11 | Emergency (ER) | payer OTHER ==
--- OUTSIDE RECORDS SUMMARY | 2023-09-11 12:36 | XMS REPORT | Continuity of Care Document ---
Author Name Unknown Address [address] [facility] [address] [place] [address] [facility] thconnect Address [address] [facility] [place] [address] Care Team Providers Care Cvt Rn Name Role Phone MILY GOODWIN Primary Care Physician Unavailable HERMINIA OH Attending Clinician Unavailable NOMI MARY Attending Clinician Unavailable NOMI MARY Attending Clinician Unavailable Nomi Mary DO Attending Clinician [phone] Doctor Unassigned, [place] Attending Clinician U elaina Monge RN, Marika Friedman Attending Clinician [phone] MARELY WATTERS Attending Clinician Unavaila MARELY Meehan Attending Clinician Unavaila CARL Bowman Attending Clinician Unavailable CARL ORLANDO Attending Clinician Unavailable MILY GOODWIN Attending Clinician April Mily Ruiz MD Attending Clinician Taylor Frye RN Attending Clinician Unavailab TRAVIS Katz Attending Clinician Unavailable Iza Portillo Attending Clinician [phone] Francisca Bryant DO Attending Clinician +[phone] Travis Zeng MD Attending Clinician +[phone] PRADIP AUSTIN Attending Clinician Unavaila Pradip Du Attending Clinician [phone] HERMINIA CHO Attending Clinician Unavailable Herminia Cho MD Attending Clinician + FRANCISCA BRYANT Attending Clinician Unavailab LOUIS Ham Attending Clinician Unavailable Louis Hong DO Attending Clinician + Bessie Oswald MD Attending Clinician +[phone] RACHAEL FLOWERS Attending Clinician Unavailable Rachael Flowers MD Attending Clinician [phone] LEOBARDO SLOAN Attending Clinician Unavailable Leobardo Sloan MD Attending Clinician +[phone] BESSIE OSWALD Attending Clinician Unavailable STEPHANIE ALMONTE Attending Clinician Unavail able Stephanie Almonte MD Attending Clinician [phone] IZA VARMA Attending Clinician Unavailable Kathia Paula MD Attending Clinician [phone] Agapito Hackett MD Attending Clinician [phone] María Diaz DO Attending Clinician [phone] MARISOL DEVLIN Attending Clinician Unavailable Marisol Devlin MD Attending Clinician [phone] Dedrick Toth MD Attending Clinician [phone] Cecy Caro LVN Attending Clinician +[phone] Carlo Valdez Attending Clinician + [phone] Abi Swan MD Attending Clinician [phone] Clive Contreras MD Attending Clinician [phone] ERNESTO PIPER Attending Clinician Unavailable ERNESTO PIPER Attending Clinician Unavailable Krissy Powers MD Attending Clinician +[phone] LEILA CHAPA Attending Clinician Unavailable Leila Chapa MD Attending Clinician [phone] Jeanette Weaver Attending Clinician [phone] [facility] Attending Clinician UnavailGokul Lewis MD Attending Clinician +[phone] GOKUL TURNER Attending Clinician Unavailable , Adc Surg Spec Procedure Attending Clinician Unavailable JEANETTE MCDANIEL Attending Clinician Unavailable Chris ZAMORA, Herminia Chandler Attending Clinician UnavailRamesh Baires Attending Clinician [phone] TRAVIS ZENG Admitting Clinician Unavailable Travis Zeng MD Admitting Clinician [phone] STEPHANIE ALMONTE Admitting Clinician Unavail able LOUIS HONG Admitting Clinician Unavailable María Diaz DO Admitting Clinician [phone] MARISOL DEVLIN Admitting Clinician Unavailable IZA VARMA Admitting Clinician Unavailable Clive Contreras MD Admitting Clinician [phone] KRISSY POWERS Admitting Clinician Unavailable Krissy Powers MD Admitting Clinician [phone] MARÍA DIAZ Admitting Clinician Unavailable HERMINIA CHO Admitting Clinician Unavailable SAUD SANDERS Admitting Clinician Unavailable Payers Payer Name Policy Type Policy Number Effective Date Expirati on Date Source [employer] MEDICARE GOLD [id number] 2018 00:00:00 [employer] [id number] 2022 00:00:00 Problems Condition Name Condition Details Condition Category Status Onset Date Resolution Date Last Treatment Date Treating Clinician Comments Source Mitral regurgitat ion Mitral regurgitat ion Disease Active 02-16 00:00: 00 [facility] Hypotensio n, unspecifie d hypotensio n type Hypotensio n, unspecifie d hypotensio n type Disease Active 02-15 00:00: 00 [facility] 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 Disease Active 2023-0 5-03 00:00: 00 [facility] Confusion Confusion Disease Active 3-24 00:00: 00 [facility] Shortness of breath Shortness of breath Disease Active 3-11 00:00: 00 [facility] SOB (shortness of breath) SOB (shortness of breath) Disease Active 2-21 00:00: 00 [facility] 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 heart failure Disease Active 2018-09 00:00: 00 [facility] PAF (paroxysma l atrial fibrillati on) PAF (paroxysma l atrial fibrillati on) Disease Active 2018-09 00:00: 00 [facility] NSVT (nonsustai charlette ventricula r tachycardi a) NSVT (nonsustai charlette ventricula r tachycardi a) Disease Active 2018-09 00:00: 00 [facility] Acute on chronic combined systolic and diastolic congestive heart failure Acute on chronic combined systolic and diastolic congestive heart failure Disease Active 2018-09 00:00: 00 [facility] Nonrheumat ic mitral valve stenosis Nonrheumat ic mitral valve stenosis Disease Active 2018-09 00:00: 00 [facility] COPD exacerbati on COPD exacerbati on Disease Active 2018-09 00:00: 00 [facility] Cigarette smoker Cigarette smoker Disease Active 2018-09 00:00: 00 [facility] Troponin I above reference range Troponin I above reference range Disease Active 2018-09 00:00: 00 [facility] Hyponatrem ia Hyponatrem ia Disease Active 2018-09 00:00: 00 [facility] Hypoxia Hypoxia Disease Active 2018-09 00:00: 00 [facility] Acute respirator y distress Acute respirator y distress Disease Active 2018-09 00:00: 00 [facility] Left heart failure Left heart failure Disease Active 2013-09 00:00: 00 [facility] Closed fracture of zygoma Closed fracture of zygoma Disease Active 2013-09 00:00: 00 Overview: Formattin g of this note might be different from the original. Chronic Fracture - not acute [facility] Fall Fall Disease Active 2013-09 00:00: 00 [facility] Atrial fibrillati on Atrial fibrillati on Disease Active 2013-09 00:00: 00 [facility] VT (ventricul ar tachycardi a) VT (ventricul ar tachycardi a) Disease Active 2013-09 00:00: 00 [facility] Allergies, Adverse Reactions, Alerts Allergy Name Allergy Type Status Severity Reaction(s) Onset Date Inactive Date Treating Clinician Comments Source NO KNOWN ALLERGIE S Drug Class Active [facility] Social History Social Habit Start Date Stop Date Quantity Comments Source Gender identity [facility] History of tobacco use Passive smoker [facility] History SDOH Social Connections Get Together [facility] History SDOH Social Connections [facility] History SDOH Social Connections Membership [facility] History SDOH Social Connections Meetings [facility] History of Social function 2023-03-01 00:00:00 2023-03-01 00:00:00 [facility] Alcohol intake 2023-03-01 00:00:00 2023-03-01 00:00:00 Current drinker of alcohol (finding) [facility] History SDOH Housing Unable to Pay 2023-02-18 00:00:00 2023-02-18 00:00:00 2 [facility] History SDOH Housing Places Lived 2023-02-18 00:00:00 2023-02-18 00:00:00 1 [facility] History SDOH Housing Homeless Last Year 2023-02-18 00:00:00 2023-02-18 00:00:00 2 [facility] History SDOH Alcohol Frequency 2023-02-18 00:00:00 2023-02-18 00:00:00 1 [facility] History SDOH Social Connections Phone 2023-02-18 00:00:00 2023-02-18 00:00:00 5 [facility] History SDOH Social Connections Living 2023-02-18 00:00:00 2023-02-18 00:00:00 7 [facility] History SDOH Physical Activity DPW 2023-02-18 00:00:00 2023-02-18 00:00:00 0 [facility] History SDOH Physical Activity MPS 2023-02-18 00:00:00 2023-02-18 00:00:00 0 [facility] History SDOH Financial 2023-02-18 00:00:00 2023-02-18 00:00:00 5 [facility] History SDOH Food Worry 2023-02-18 00:00:00 2023-02-18 00:00:00 1 [facility] History SDOH Food Scarcity 2023-02-18 00:00:00 2023-02-18 00:00:00 1 [facility] History SDOH Transport Med 2023-02-18 00:00:00 2023-02-18 00:00:00 2 [facility] History SDOH Transport Non-Med 2023-02-18 00:00:00 2023-02-18 00:00:00 2 [facility] Exposure to SARS-CoV-2 (event) 2023-02-05 00:00:00 2023-02-15 15:15:00 Not sure [facility] History SDOH Alcohol Std Drinks 2022-12-02 00:00:00 2022-12-02 00:00:00 3 [facility] History SDOH Alcohol Binge 2022-12-02 00:00:00 2022-12-02 00:00:00 1 [facility] Cigarettes smoked current (pack per day) - Reported 2022-11-09 00:00:00 2022-11-09 00:00:00 [facility] Tobacco use and exposure 2022-11-09 00:00:00 2022-11-09 00:00:00 User of smokeless tobacco [facility] Education - What is the highest level of school you have completed or the highest degree you have received? 2022-11-09 00:00:00 2022-11-09 00:00:00 High school graduate [facility] Alcohol Comment 2014-08-27 00:00:00 2014-08-27 00:00:00 8 drinks per day [facility] Sex Assigned At 1960 00:00:00 1960 00:00:00 [facility] Smoking Status Start Date Stop Date Source Smokes tobacco daily 2022-11-09 00:00:00 [facility] Medications Ordered Medication Name Filled Medication Name Start Date Stop Date Current Medication? Ordering Clinician Indication Dosage Frequency Signature (SIG) Comments Components Source khadar sim (INCRUSE ELLIPTA) 62.5 mcg/actuati on DsDv 2022-09 0- 00:00: 00 Yes [id number] 1{puff} Inhale 1 Puff in the morning. [facility] tiotropium 18 mcg inhalation 2022-09 0 00:00: 00 Yes 18ug Inhale 1 capsule in the morning. [facility] tiotropium 18 mcg inhalation 2022-09 0 00:00: 00 Yes 18ug Inhale 1 capsule in the morning. [facility] tiotropium 18 mcg inhalation 2022-09 0 00:00: 00 Yes 18ug Inhale 1 capsule in the morning. [facility] fluticasone propion-bella meteroL (ADVAIR DISKUS) 250-50 mcg/dose inhalation disk 04-19 00:00: 00 Yes 1{puff} Inhale 1 Puff in the morning and 1 Puff in the evening. [facility] tiotropium 18 mcg inhalation 04-19 00:00: 00 Yes 18ug Inhale 1 capsule in the morning. [facility] albuterol 90 mcg/actuati on inhaler 04-19 00:00: 00 Yes 2{puff} Inhale 2 Puffs every 4 (four) hours as needed for Wheezing or Shortness of Breath. [facility] ipratropium -albuteroL 0.5 mg-3 mg(2.5 mg base)/3 mL nebulizer solution 04-19 00:00: 00 Yes [id number] 3mL Inhale 3 mL every 6 (six) hours as needed for Wheezing. [facility] fluticasone propion-blela meteroL (ADVAIR DISKUS) 250-50 mcg/dose inhalation disk 04-19 00:00: 00 Yes 1{puff} Inhale 1 Puff in the morning and 1 Puff in the evening. [facility] tiotropium 18 mcg inhalation 04-19 00:00: 00 Yes 18ug Inhale 1 capsule in the morning. [facility] albuterol 90 mcg/actuati on inhaler 04-19 00:00: 00 Yes 2{puff} Inhale 2 Puffs every 4 (four) hours as needed for Wheezing or Shortness of Breath. [facility] ipratropium -albuteroL 0.5 mg-3 mg(2.5 mg base)/3 mL nebulizer solution 04-19 00:00: 00 Yes [id number] 3mL Inhale 3 mL every 6 (six) hours as needed for Wheezing. [facility] fluticasone propion-bella meteroL (ADVAIR DISKUS) 250-50 mcg/dose inhalation disk 04-19 00:00: 00 Yes 1{puff} Inhale 1 Puff in the morning and 1 Puff in the evening. [facility] tiotropium 18 mcg inhalation 04-19 00:00: 00 Yes 18ug Inhale 1 capsule in the morning. [facility] albuterol 90 mcg/actuati on inhaler 04-19 00:00: 00 Yes 2{puff} Inhale 2 Puffs every 4 (four) hours as needed for Wheezing or Shortness of Breath. [facility] ipratropium -albuteroL 0.5 mg-3 mg(2.5 mg base)/3 mL nebulizer solution 04-19 00:00: 00 Yes [id number] 3mL Inhale 3 mL every 6 (six) hours as needed for Wheezing. [facility] fluticasone propion-bella meteroL (ADVAIR DISKUS) 250-50 mcg/dose inhalation disk 04-19 00:00: 00 Yes 1{puff} Inhale 1 Puff in the morning and 1 Puff in the evening. [facility] albuterol 90 mcg/actuati on inhaler 04-19 00:00: 00 Yes 2{puff} Inhale 2 Puffs every 4 (four) hours as needed for Wheezing or Shortness of Breath. [facility] ipratropium -albuteroL 0.5 mg-3 mg(2.5 mg base)/3 mL nebulizer solution 04-19 00:00: 00 Yes [id number] 3mL Inhale 3 mL every 6 (six) hours as needed for Wheezing. [facility] fluticasone propion-bella meteroL (ADVAIR DISKUS) 250-50 mcg/dose inhalation disk 04-19 00:00: 00 Yes 1{puff} Inhale 1 Puff in the morning and 1 Puff in the evening. [facility] albuterol 90 mcg/actuati on inhaler 04-19 00:00: 00 Yes 2{puff} Inhale 2 Puffs every 4 (four) hours as needed for Wheezing or Shortness of Breath. [facility] ipratropium -albuteroL 0.5 mg-3 mg(2.5 mg base)/3 mL nebulizer solution 04-19 00:00: 00 Yes [id number] 3mL Inhale 3 mL every 6 (six) hours as needed for Wheezing. [facility] fluticasone propion-bella meteroL (ADVAIR DISKUS) 250-50 mcg/dose inhalation disk 04-19 00:00: 00 Yes 1{puff} Inhale 1 Puff in the morning and 1 Puff in the evening. [facility] albuterol 90 mcg/actuati on inhaler 04-19 00:00: 00 Yes 2{puff} Inhale 2 Puffs every 4 (four) hours as needed for Wheezing or Shortness of Breath. [facility] ipratropium -albuteroL 0.5 mg-3 mg(2.5 mg base)/3 mL nebulizer solution 04-19 00:00: 00 Yes [id number] 3mL Inhale 3 mL every 6 (six) hours as needed for Wheezing. [facility] tiotropium 18 mcg inhalation 8 00:00: 00 07-08 00:00 :00 No 18ug Inhale 1 capsule in the morning. [facility] albuterol 2.5 mg /3 mL (0.083 %) nebulizer solution 03-03 00:00: 00 Yes [id number] 2.5mg Inhale 3 mL every 4 (four) hours. May also nebulize one extra every 6 hours. [facility] albuterol 2.5 mg /3 mL (0.083 %) nebulizer solution 03-03 00:00: 00 Yes [id number] 2.5mg Inhale 3 mL every 4 (four) hours. May also nebulize one extra every 6 hours. [facility] albuterol 2.5 mg /3 mL (0.083 %) nebulizer solution 03-03 00:00: 00 Yes [id number] 2.5mg Inhale 3 mL every 4 (four) hours. May also nebulize one extra every 6 hours. [facility] albuterol 2.5 mg /3 mL (0.083 %) nebulizer solution 03-03 00:00: 00 Yes [id number] 2.5mg Inhale 3 mL every 4 (four) hours. May also nebulize one extra every 6 hours. [facility] albuterol 2.5 mg /3 mL (0.083 %) nebulizer solution 03-03 00:00: 00 Yes [id number] 2.5mg Inhale 3 mL every 4 (four) hours. May also nebulize one extra every 6 hours. [facility] albuterol 2.5 mg /3 mL (0.083 %) nebulizer solution 03-03 00:00: 00 Yes [id number] 2.5mg Inhale 3 mL every 4 (four) hours. May also nebulize one extra every 6 hours. [facility] albuterol 2.5 mg /3 mL (0.083 %) nebulizer solution 2022-0 6-15 00:00: 00 Yes [id number] 2.5mg Inhale 3 mL every 4 (four) hours. May also nebulize one extra every 6 hours. [facility] donepeziL 5 mg tablet 2022-0 6-13 00:00: 00 Yes [id number] 5mg Take 1 tablet by mouth in the morning. [facility] memantine 5 mg tablet 2022-0 6-13 00:00: 00 Yes [id number] 5mg Take 1 tablet by mouth in the morning. [facility] donepeziL 5 mg tablet 2022-0 6-13 00:00: 00 Yes [id number] 5mg Take 1 tablet by mouth in the morning. [facility] memantine 5 mg tablet 2022-0 6-13 00:00: 00 Yes [id number] 5mg Take 1 tablet by mouth in the morning. [facility] donepeziL 5 mg tablet 2022-0 6-13 00:00: 00 Yes [id number] 5mg Take 1 tablet by mouth in the morning. [facility] memantine 5 mg tablet 2022-0 6-13 00:00: 00 Yes [id number] 5mg Take 1 tablet by mouth in the morning. [facility] donepeziL 5 mg tablet 2022-0 -13 00:00: 00 Yes [id number] 5mg Take 1 tablet by mouth in the morning. [facility] memantine 5 mg tablet 2022-0 6-13 00:00: 00 Yes [id number] 5mg Take 1 tablet by mouth in the morning. [facility] donepeziL 5 mg tablet 3-0 6-13 00:00: 00 Yes [id number] 5mg Take 1 tablet by mouth in the morning. [facility] memantine 5 mg tablet 3-0 6-13 00:00: 00 Yes [id number] 5mg Take 1 tablet by mouth in the morning. [facility] donepeziL 5 mg tablet 3-0 6-13 00:00: 00 Yes [id number] 5mg Take 1 tablet by mouth in the morning. [facility] memantine 5 mg tablet 2022-0 13 00:00: 00 Yes [id number] 5mg Take 1 tablet by mouth in the morning. [facility] donepeziL 5 mg tablet 2022-0 13 00:00: 00 Yes [id number] 5mg Take 1 tablet by mouth in the morning. [facility] memantine 5 mg tablet 2022-0 13 00:00: 00 Yes [id number] 5mg Take 1 tablet by mouth in the morning. [facility] donepeziL 5 mg tablet 2022-0 03-01 00:00: 00 Yes [id number] 5mg Take 1 tablet by mouth in the morning. [facility] memantine 5 mg tablet 2022-0 03-01 00:00: 00 Yes [id number] 5mg Take 1 tablet by mouth in the morning. [facility] donepeziL 5 mg tablet 2022-0 03-01 00:00: 00 Yes [id number] 5mg Take 1 tablet by mouth in the morning. [facility] memantine 5 mg tablet 2022-0 03-01 00:00: 00 Yes [id number] 5mg Take 1 tablet by mouth in the morning. [facility] busPIRone 10 mg tablet 0 02-18 16:15: 12 Yes 10mg Take 1 tablet by mouth in the morning and 1 tablet in the evening. [facility] rivaroxaban 15 mg tablet 0 02-18 16:15: 12 Yes 15mg Take 1 tablet by mouth in the morning. [facility] ASPIRIN ORAL 2022-0 02-18 16:15: 12 Yes 81mg Take 81 mg by mouth in the morning. tablet [facility] busPIRone 10 mg tablet 2022-0 02-18 16:15: 12 Yes 10mg Take 1 tablet by mouth in the morning and 1 tablet in the evening. [facility] rivaroxaban 15 mg tablet 2022-0 02-18 16:15: 12 Yes 15mg Take 1 tablet by mouth in the morning. [facility] ASPIRIN ORAL 3-0 02-18 16:15: 12 Yes 81mg Take 81 mg by mouth in the morning. tablet [facility] busPIRone 10 mg tablet 2022-0 02-18 16:15: 12 Yes 10mg Take 1 tablet by mouth in the morning and 1 tablet in the evening. [facility] ity [facility] rivaroxaban 15 mg tablet 0 02-18 16:15: 12 Yes 15mg Take 1 tablet by mouth in the morning. [facility] ASPIRIN [facility]-0 02-18 16:15: 12 Yes 81mg Take 81 mg by mouth in the morning. tablet [facility] busPIRone 10 mg tablet 2022-0 02-18 16:15: 12 Yes 10mg Take 1 tablet by mouth in the morning and 1 tablet in the evening. [facility] rivaroxaban 15 mg tablet 0 02-18 16:15: 12 Yes 15mg Take 1 tablet by mouth in the morning. [facility] ASPIRIN ORAL 2022-0 02-18 16:15: 12 Yes 81mg Take 81 mg by mouth in the morning. tablet [facility] busPIRone 10 mg tablet 0 02-18 16:15: 12 Yes 10mg Take 1 tablet by mouth in the morning and 1 tablet in the evening. [facility] rivaroxaban 15 mg tablet 0 02-18 16:15: 12 Yes 15mg Take 1 tablet by mouth in the morning. [facility] ASPIRIN ORAL 2022-0 02-18 16:15: 12 Yes 81mg Take 81 mg by mouth in the morning. tablet [facility] busPIRone 10 mg tablet 0 02-18 16:15: 12 Yes 10mg Take 1 tablet by mouth in the morning and 1 tablet in the evening. [facility] tablet 2022-0 02-18 16:15: 12 Yes 15mg Take 1 tablet by mouth in the morning. [facility] ASPIRIN ORAL 2022-0 02-18 16:15: 12 Yes 81mg Take 81 mg by mouth in the morning. tablet [facility] busPIRone 10 mg tablet 2022-0 02-18 16:15: 12 Yes 10mg Take 1 tablet by mouth in the morning and 1 tablet in the evening. [facility] rivaroxaban 15 mg tablet 2022-0 02-18 16:15: 12 Yes 15mg Take 1 tablet by mouth in the morning. [facility] ASPIRIN ORAL 3-0 02-18 16:15: 12 Yes 81mg Take 81 mg by mouth in the morning. tablet [facility] busPIRone 10 mg tablet 2022-0 02-18 16:15: 12 Yes 10mg Take 1 tablet by mouth in the morning and 1 tablet in the evening. [facility] rivaroxaban 15 mg tablet 2022-0 02-18 16:15: 12 Yes 15mg Take 1 tablet by mouth in the morning. [facility] ASPIRIN ORAL 2022-0 02-18 16:15: 12 Yes 81mg Take 81 mg by mouth in the morning. tablet [facility] busPIRone 10 mg tablet 2022-0 02-18 16:15: 12 Yes 10mg Take 1 tablet by mouth in the morning and 1 tablet in the evening. [facility] rivaroxaban 15 mg tablet 0 02-18 16:15: 12 Yes 15mg Take 1 tablet by mouth in the morning. [facility] ASPIRIN ORAL 2022-0 02-18 16:15: 12 Yes 81mg Take 81 mg by mouth in the morning. tablet [facility] busPIRone 10 mg tablet 2022-0 02-18 16:15: 12 Yes 10mg Take 1 tablet by mouth in the morning and 1 tablet in the evening. [facility] rivaroxaban 15 mg tablet 2022-0 02-18 16:15: 12 Yes 15mg Take 1 tablet by mouth in the morning. [facility] ASPIRIN ORAL 3-0 02-18 16:15: 12 Yes 81mg Take 81 mg by mouth in the morning. tablet [facility] busPIRone 10 mg tablet 2022-0 02-18 16:15: 12 Yes 10mg Take 1 tablet by mouth in the morning and 1 tablet in the evening. [facility] riv[facility] mg tablet 2022-0 02-18 16:15: 12 Yes 15mg Take 1 tablet by mouth in the morning. [facility] ASPIRIN ORAL 0 02-18 16:15: 12 Yes 81mg Take 81 mg by mouth in the morning. tablet [facility] busPIRone 10 mg tablet 02-18 16:15: 12 Yes 10mg Take 1 tablet by mouth in the morning and 1 tablet in the evening. [facility] rivaroxaban 15 mg tablet 0 02-18 16:15: 12 Yes 15mg Take 1 tablet by mouth in the morning. [facility] ASPIRIN ORAL 0 02-18 16:15: 12 Yes 81mg Take 81 mg by mouth in the morning. tablet [facility] busPIRone 10 mg tablet 0 02-18 16:15: 12 Yes 10mg Take 1 tablet by mouth in the morning and 1 tablet in the evening. [facility] rivaroxaban 15 mg tablet 02-18 16:15: 12 Yes 15mg Take 1 tablet by mouth in the morning. [facility] ASPIRIN ORAL 02-18 16:15: 12 Yes 81mg Take 81 mg by mouth in the morning. tablet [facility] predniSONE 20 mg tablet 0 02-18 00:00: 00 02-22 04:59 :00 No [id number] 40mg Take 2 tablets by mouth in the morning for 3 days. [facility] predniSONE 20 mg tablet 0 02-18 00:00: 00 02-22 04:59 :00 No [id number] 40mg Take 2 tablets by mouth in the morning for 3 days. [facility] predniSONE 20 mg tablet 02-18 00:00: 00 02-22 04:59 :00 No [id number] 40mg Take 2 tablets by mouth in the morning for 3 days. [facility] midodrine 5 mg tablet 02-17 00:00: 00 Yes [id number] 5mg Take 1 tablet by mouth every 8 (eight) hours as needed (Hypotensi on SBP <95 or DBP <50). [facility] midodrine 5 mg tablet 02-17 00:00: 00 Yes [id number] 5mg Take 1 tablet by mouth every 8 (eight) hours as needed (Hypotensi on SBP <95 or DBP <50). [facility] midodrine 5 mg tablet 02-17 00:00: 00 Yes [id number] 5mg Take 1 tablet by mouth every 8 (eight) hours as needed (Hypotensi on SBP <95 or DBP <50). [facility] midodrine 5 mg tablet 02-17 00:00: 00 Yes [id number] 5mg Take 1 tablet by mouth every 8 (eight) hours as needed (Hypotensi on SBP <95 or DBP <50). [facility] midodrine 5 mg tablet 02-17 00:00: 00 Yes [id number] 5mg Take 1 tablet by mouth every 8 (eight) hours as needed (Hypotensi on SBP <95 or DBP <50). [facility] midodrine 5 mg tablet 02-17 00:00: 00 Yes [id number] 5mg Take 1 tablet by mouth every 8 (eight) hours as needed (Hypotensi on SBP <95 or DBP <50). [facility] midodrine 5 mg tablet 02-17 00:00: 00 Yes [id number] 5mg Take 1 tablet by mouth every 8 (eight) hours as needed (Hypotensi on SBP <95 or DBP <50). [facility] midodrine 5 mg tablet 02-17 00:00: 00 Yes [id number] 5mg Take 1 tablet by mouth every 8 (eight) hours as needed (Hypotensi on SBP <95 or DBP <50). [facility] midodrine 5 mg tablet 02-17 00:00: 00 Yes [id number] 5mg Take 1 tablet by mouth every 8 (eight) hours as needed (Hypotensi on SBP <95 or DBP <50). [facility] midodrine 5 mg tablet 02-17 00:00: 00 Yes [id number] 5mg Take 1 tablet by mouth every 8 (eight) hours as needed (Hypotensi on SBP <95 or DBP <50). [facility] midodrine 5 mg tablet 0 02-17 00:00: 00 Yes [id number] 5mg Take 1 tablet by mouth every 8 (eight) hours as needed (Hypotensi on SBP <95 or DBP <50). [facility] midodrine 5 mg tablet 0 02-17 00:00: 00 Yes [id number] 5mg Take 1 tablet by mouth every 8 (eight) hours as needed (Hypotensi on SBP <95 or DBP <50). [facility] midodrine 5 mg tablet 02-17 00:00: 00 Yes [id number] 5mg Take 1 tablet by mouth every 8 (eight) hours as needed (Hypotensi on SBP <95 or DBP <50). [facility] midodrine (PROAMATINE ) tablet 5 mg 02-16 19:00: 00 Yes 5mg 5 mg, Oral, Q8H, First dose on Tue02/16/23 at 1400, Until Discontinu ed, Routine [facility] rivaroxaban (XARELTO) tablet 15 mg 02-16 14:00: 00 Yes 15mg 15 mg, Oral, DAILY, First dose on Tue02/16/23 at 0900, Until Discontinu ed, Routine [facility] montelukast (SINGULAIR) tablet 10 mg 02-16 14:00: 00 Yes 10mg 10 mg, Oral, DAILY, First dose on Tue02/16/23 at 0900, Until Discontinu ed, Routine [facility] memantine (NAMENDA) tablet 5 mg 02-16 14:00: 00 Yes 5mg 5 mg, Oral, DAILY, First dose on Tue02/16/23 at 0900, Until Discontinu ed, Routine
committee member approving Restricted medication : DEDRICK TOTH [facility] donepeziL (ARICEPT) tablet 5 mg 02-16 14:00: 00 Yes 5mg 5 mg, Oral, DAILY, First dose on Tue02/16/23 at 0900, Until Discontinu ed, Routine [facility] aspirin EC tablet 81 mg 02-16 14:00: 00 Yes 81mg 81 mg, Oral, DAILY, First dose on Tue02/16/23 at 0900, Until Discontinu ed [facility] docusate (COLACE) capsule 100 mg 02-16 14:00: 00 Yes 100mg 100 mg, Oral, DAILY, First dose on Tue02/16/23 at 0900, Until Discontinu ed, Routine [facility] predniSONE (DELTASONE) tablet 40 mg 02-16 14:00: 00 02-21 13:59 :00 No 40mg 40 mg, Oral, DAILY, 5 doses, First dose on Tue02/16/23 at 0900, Last dose on Tue02/20/23 at 0900, Routine [facility] sulfur hexafluorid e microsphr (LUMASON) injection 5 mL 02-16 14:00: 00 02-16 14:00 :00 No [id number] 5mL 5 mL, Intravenou s, ONCE, 1 dose, On Tue02/16/23 at 0900, Routine
committee member approving Restricted medication : STEFFANIE REYES [facility] budesonide- formoteroL (SYMBICORT) 160-4.5 mcg/actuati on inhaler 2 Puff 02-16 13:00: 00 Yes 2{puff} 2 Puff, Inhalation , BID, First dose on Tue02/16/23 at 0800, Until Discontinu ed [facility] busPIRone (BUSPAR) tablet 10 mg 02-16 13:00: 00 Yes 10mg 10 mg, Oral, BID, First dose on Tue02/16/23 at 0800, Until Discontinu ed, Routine [facility] methylpredn isolone sod succ (SOLU-MEDRO L) injection 60 mg 02-16 05:43: 00 02-16 05:51 :00 No 60mg 60 mg, Intravenou s, ONCE, 1 dose, On Tue02/16/23 at 0045, 2 mL [facility] levoFLOXaci n in D5W (LEVAQUIN) 500 [...]
Re stricted use approved by: ADC PROVIDER [facility] doxycycline hyclate (Vibramycin ) capsule 100 mg 02-16 01:02: 11 02-16 21:57 :07 No 100mg 100 mg, Oral, Q12H ABX, 10 doses, First dose on Tue02/15/23 at 2015, Last dose on Tue02/20/23 at 0815, MICHAEL
Re ason for Anti-Infec tive: Documented Infection< br>Documen anirudh Infection Site: Respirator y
Durat ion of Therapy: 7 days [facility] NaCl 0.9% (NS) IV infusion 1,000 mL 02-16 01:00: 00 02-16 12:47 :05 No 1000mL at 100 mL/hr, IV Infusion, CONTINUOUS , Starting on Tue02/15/23 at 2000, Until Tue02/16/23 at 0747, Routine [facility] ipratropium -albuteroL (DUONEB) 0.5 mg-3 mg(2.5 mg base)/3 mL nebulizer solution 3 mL 02-16 00:53: 35 Yes 3mL 3 mL, Inhalation , Q6HPRN, Starting on Tue02/15/23 at 1953, Until Discontinu ed, Routine, Wheezing, Shortness of Breath [facility] HYDROcodone -acetaminop hen (NORCO) 10-325 mg tablet 1 tablet 02-16 00:52: 26 Yes 1{tbl} 1 tablet, Oral, Q6HPRN, Starting on Tue02/15/23 at 1951, Until Discontinu ed, Routine, Pain (scale 7-10) [facility] traMADoL (ULTRAM) tablet 50 mg 02-16 00:52: 22 02-18 00:51 :22 No 50mg 50 mg, Oral, Q8HPRN, Starting on Tue02/15/23 at 1951, Until Elizabeth 02/17/23 at 1950, Routine, Pain (scale 4-6) [facility] acetaminoph en (TYLENOL) tablet 650 mg 02-16 00:52: 16 Yes 650mg 650 mg, Oral, Q6HPRN, Starting on Tue02/15/23 at 1951, Until Discontinu ed, Routine, Pain (scale 1-3) [facility] NaCl 0.9% (NS) bolus infusion 1,000 mL 02-15 22:15: 00 02-15 22:51 :00 No 1000mL at 999 mL/hr, 1,000 mL, IV Infusion, ONCE, 1 dose, On Tue02/15/23 at 1715, [facility] NaCl 0.9% (NS) bolus infusion 1,000 mL 02-15 21:30: 00 02-15 22:43 :00 No 1000mL at 999 mL/hr, 1,000 mL, IV Infusion, ONCE, 1 dose, On Tue02/15/23 at 1630, [facility] NaCl 0.9% (NS) bolus infusion 1,000 mL 02-15 20:45: 00 02-15 22:43 :00 No 1000mL at 999 mL/hr, 1,000 mL, IV Infusion, ONCE, 1 dose, On Tue02/15/23 at 1545, [facility] ipratropium -albuteroL (DUONEB) 0.5 mg-3 mg(2.5 mg base)/3 mL nebulizer solution 3 mL 02-05 22:15: 00 02-06 10:14 :00 No 3mL 3 mL, Inhalation , ONCE, 1 dose, On 02/05/23 at 1715, [facility] ipratropium -albuteroL (DUONEB) 0.5 mg-3 mg(2.5 mg base)/3 mL nebulizer solution 3 mL 02-05 21:15: 00 02-05 20:17 :00 No 3mL 3 mL, Inhalation , ONCE, 1 dose, On 02/05/23 at 1615, [facility] predniSONE (DELTASONE) tablet 40 mg 02-05 20:15: 00 02-05 20:18 :00 No 40mg 40 mg, Oral, ONCE, 1 dose, On 02/05/23 at 1515, [facility] levalbutero l (XOPENEX) nebulizer solution 2.5 mg 02-04 21:15: 00 02-04 20:31 :00 No 2.5mg 2.5 mg, Inhalation , ONCE, 1 dose, On Tue02/04/23 at 1615, Routine [facility] ipratropium (ATROVENT) 0.02 % nebulizer solution 0.5 mg 02-04 21:15: 00 02-04 20:31 :00 No .5mg 0.5 mg, Inhalation , ONCE, 1 dose, On Tue02/04/23 at 1615, [facility] albuterol 90 mcg/actuati on inhaler 02-04 00:00: 00 Yes [id number] 2{puff} Inhale 2 Puffs every 4 (four) hours as needed for Wheezing or Shortness of Breath. [facility] albuterol 90 mcg/actuati on inhaler 02-04 00:00: 00 Yes [id number] 2{puff} Inhale 2 Puffs every 4 (four) hours as needed for Wheezing or Shortness of Breath. [facility] albuterol 90 mcg/actuati on inhaler 02-04 00:00: 00 Yes [id number] 2{puff} Inhale 2 Puffs every 4 (four) hours as needed for Wheezing or Shortness of Breath. [facility] albuterol 90 mcg/actuati on inhaler 02-04 00:00: 00 Yes [id number] 2{puff} Inhale 2 Puffs every 4 (four) hours as needed for Wheezing or Shortness of Breath. [facility] albuterol 90 mcg/actuati on inhaler 02-04 00:00: 00 Yes [id number] 2{puff} Inhale 2 Puffs every 4 (four) hours as needed for Wheezing or Shortness of Breath. [facility] albuterol 90 mcg/actuati on inhaler 02-04 00:00: 00 Yes [id number] 2{puff} Inhale 2 Puffs every 4 (four) hours as needed for Wheezing or Shortness of Breath. [facility] albuterol 90 mcg/actuati on inhaler 02-04 00:00: 00 Yes [id number] 2{puff} Inhale 2 Puffs every 4 (four) hours as needed for Wheezing or Shortness of Breath. [facility] albuterol 90 mcg/actuati on inhaler 02-04 00:00: 00 Yes [id number] 2{puff} Inhale 2 Puffs every 4 (four) hours as needed for Wheezing or Shortness of Breath. [facility] albuterol 90 mcg/actuati on inhaler 02-04 00:00: 00 Yes [id number] 2{puff} Inhale 2 Puffs every 4 (four) hours as needed for Wheezing or Shortness of Breath. [facility] albuterol 90 mcg/actuati on inhaler 02-04 00:00: 00 Yes [id number] 2{puff} Inhale 2 Puffs every 4 (four) hours as needed for Wheezing or Shortness of Breath. [facility] albuterol 90 mcg/actuati on inhaler 02-04 00:00: 00 04-19 00:00 :00 No [id number] 2{puff} Inhale 2 Puffs every 4 (four) hours as needed for Wheezing or Shortness of Breath. [facility] albuterol 90 mcg/actuati on inhaler 02-04 00:00: 00 04-19 00:00 :00 No [id number] 2{puff} Inhale 2 Puffs every 4 (four) hours as needed for Wheezing or Shortness of Breath. [facility] ipratropium -albuteroL (DUONEB) 0.5 mg-3 mg(2.5 mg base)/3 mL nebulizer solution 3 mL 02-03 21:00: 00 Yes 3mL 3 mL, Inhalation , QID, First dose on Tue02/03/23 at 1600, Until Discontinu ed, Routine [facility] methylpredn isolone sod succ (SOLU-MEDRO L) injection 125 mg 02-03 18:45: 00 02-03 18:16 :00 No 125mg 125 mg, Intravenou s, ONCE, 1 dose, On Tue02/03/23 at 1345, 2 mL [facility] ipratropium -albuteroL (DUONEB) 0.5 mg-3 mg(2.5 mg base)/3 mL nebulizer solution 3 mL 02-02 23:15: 00 02-02 22:13 :00 No 3mL 3 mL, Inhalation , ONCE, 1 dose, On Tue02/02/23 at 1815, Routine [facility] albuterol 90 mcg/actuati on inhaler 01-31 00:00: 00 Yes [id number] 2{puff} Inhale 2 Puffs every 4 (four) hours as needed for Wheezing, Shortness of Breath or Bronchospa sm. [facility] fluticasone propion-bella meteroL (ADVAIR DISKUS) 250-50 mcg/dose inhalation disk 01-31 00:00: 00 Yes [id number] 1{puff} Inhale 1 Puff in the morning and 1 Puff in the evening. [facility] montelukast 10 mg tablet 01-31 00:00: 00 Yes [id number] 10mg Take 1 tablet by mouth in the morning. [facility] tiotropium 18 mcg inhalation 01-31 00:00: 00 Yes [id number] 18ug Inhale 1 capsule in the morning. [facility] albuterol 90 mcg/actuati on inhaler 01-31 00:00: 00 Yes [id number] 2{puff} Inhale 2 Puffs every 4 (four) hours as needed for Wheezing, Shortness of Breath or Bronchospa sm. [facility] fluticasone propion-bella meteroL (ADVAIR DISKUS) 250-50 mcg/dose inhalation disk 01-31 00:00: 00 Yes [id number] 1{puff} Inhale 1 Puff in the morning and 1 Puff in the evening. [facility] montelukast 10 mg tablet 01-31 00:00: 00 Yes [id number] 10mg Take 1 tablet by mouth in the morning. [facility] tiotropium 18 mcg inhalation 01-31 00:00: 00 Yes [id number] 18ug Inhale 1 capsule in the morning. [facility] albuterol 90 mcg/actuati on inhaler 01-31 00:00: 00 Yes [id number] 2{puff} Inhale 2 Puffs every 4 (four) hours as needed for Wheezing, Shortness of Breath or Bronchospa sm. [facility] fluticasone propion-bella meteroL (ADVAIR DISKUS) 250-50 mcg/dose inhalation disk 01-31 00:00: 00 Yes [id number] 1{puff} Inhale 1 Puff in the morning and 1 Puff in the evening. [facility] montelukast 10 mg tablet 01-31 00:00: 00 Yes [id number] 10mg Take 1 tablet by mouth in the morning. [facility] tiotropium 18 mcg inhalation 0 15 00:00: 00 Yes [id number] 18ug Inhale 1 capsule in the morning. [facility] albuterol 90 mcg/actuati on inhaler 2022-0 15 00:00: 00 Yes [id number] 2{puff} Inhale 2 Puffs every 4 (four) hours as needed for Wheezing, Shortness of Breath or Bronchospa sm. [facility] fluticasone propion-bella meteroL (ADVAIR DISKUS) 250-50 mcg/dose inhalation disk 2022-0 15 00:00: 00 Yes [id number] 1{puff} Inhale 1 Puff in the morning and 1 Puff in the evening. [facility] montelukast 10 mg tablet 2022-0 15 00:00: 00 Yes [id number] 10mg Take 1 tablet by mouth in the morning. [facility] tiotropium 18 mcg inhalation 2022-0 -15 00:00: 00 Yes [id number] 18ug Inhale 1 capsule in the morning. [facility] fluticasone propion-bella meteroL (ADVAIR DISKUS) 250-50 mcg/dose inhalation disk 2022-0 15 00:00: 00 Yes [id number] 1{puff} Inhale 1 Puff in the morning and 1 Puff in the evening. [facility] montelukast 10 mg tablet 2022-0 15 00:00: 00 Yes [id number] 10mg Take 1 tablet by mouth in the morning. [facility] tiotropium 18 mcg inhalation 2022-0 15 00:00: 00 Yes [id number] 18ug Inhale 1 capsule in the morning. [facility] fluticasone propion-bella meteroL (ADVAIR DISKUS) 250-50 mcg/dose inhalation disk 2022-0 15 00:00: 00 Yes [id number] 1{puff} Inhale 1 Puff in the morning and 1 Puff in the evening. [facility] montelukast 10 mg tablet 2022-0 15 00:00: 00 Yes [id number] 10mg Take 1 tablet by mouth in the morning. [facility] tiotropium 18 mcg inhalation 2022-0 -15 00:00: 00 Yes [id number] 18ug Inhale 1 capsule in the morning. [facility] fluticasone propion-bella meteroL (ADVAIR DISKUS) 250-50 mcg/dose inhalation disk 3-0 5-15 00:00: 00 Yes [id number] 1{puff} Inhale 1 Puff in the morning and 1 Puff in the evening. [facility] montelukast 10 mg tablet 3-0 5-15 00:00: 00 Yes [id number] 10mg Take 1 tablet by mouth in the morning. [facility] tiotropium 18 mcg inhalation 3-0 5-15 00:00: 00 Yes [id number] 18ug Inhale 1 capsule in the morning. [facility] fluticasone propion-bella meteroL (ADVAIR DISKUS) 250-50 mcg/dose inhalation disk 3-0 5-15 00:00: 00 Yes [id number] 1{puff} Inhale 1 Puff in the morning and 1 Puff in the evening. [facility] montelukast 10 mg tablet 2022-0 -15 00:00: 00 Yes [id number] 10mg Take 1 tablet by mouth in the morning. [facility] tiotropium 18 mcg inhalation 3-0 5-15 00:00: 00 Yes [id number] 18ug Inhale 1 capsule in the morning. [facility] fluticasone propion-bella meteroL (ADVAIR DISKUS) 250-50 mcg/dose inhalation disk 3-0 5-15 00:00: 00 Yes [id number] 1{puff} Inhale 1 Puff in the morning and 1 Puff in the evening. [facility] montelukast 10 mg tablet 3-0 5-15 00:00: 00 Yes [id number] 10mg Take 1 tablet by mouth in the morning. [facility] tiotropium 18 mcg inhalation 3-0 5-15 00:00: 00 Yes [id number] 18ug Inhale 1 capsule in the morning. [facility] fluticasone propion-bella meteroL (ADVAIR DISKUS) 250-50 mcg/dose inhalation disk 3-0 5-15 00:00: 00 Yes [id number] 1{puff} Inhale 1 Puff in the morning and 1 Puff in the evening. [facility] montelukast 10 mg tablet 2022-0 -15 00:00: 00 Yes [id number] 10mg Take 1 tablet by mouth in the morning. [facility] tiotropium 18 mcg inhalation 3-0 5-15 00:00: 00 Yes [id number] 18ug Inhale 1 capsule in the morning. [facility] fluticasone propion-bella meteroL (ADVAIR DISKUS) 250-50 mcg/dose inhalation disk 3-0 5-15 00:00: 00 Yes [id number] 1{puff} Inhale 1 Puff in the morning and 1 Puff in the evening. [facility] montelukast 10 mg tablet 2022-0 -15 00:00: 00 Yes [id number] 10mg Take 1 tablet by mouth in the morning. [facility] tiotropium 18 mcg inhalation 2022-0 -15 00:00: 00 Yes [id number] 18ug Inhale 1 capsule in the morning. [facility] fluticasone propion-bella meteroL (ADVAIR DISKUS) 250-50 mcg/dose inhalation disk 2022-0 15 00:00: 00 Yes [id number] 1{puff} Inhale 1 Puff in the morning and 1 Puff in the evening. [facility] montelukast 10 mg tablet 2022-0 -15 00:00: 00 Yes [id number] 10mg Take 1 tablet by mouth in the morning. [facility] tiotropium 18 mcg inhalation 3-0 5-15 00:00: 00 Yes [id number] 18ug Inhale 1 capsule in the morning. [facility] fluticasone propion-bella meteroL (ADVAIR DISKUS) 250-50 mcg/dose inhalation disk 3-0 5-15 00:00: 00 Yes [id number] 1{puff} Inhale 1 Puff in the morning and 1 Puff in the evening. [facility] montelukast 10 mg tablet 2023-0 5-15 00:00: 00 Yes [id number] 10mg Take 1 tablet by mouth in the morning. [facility] tiotropium 18 mcg inhalation 2022-0 5-15 00:00: 00 Yes [id number] 18ug Inhale 1 capsule in the morning. [facility] fluticasone propion-bella meteroL (ADVAIR DISKUS) 250-50 mcg/dose inhalation disk 2022-0 5-15 00:00: 00 Yes [id number] 1{puff} Inhale 1 Puff in the morning and 1 Puff in the evening. [facility] montelukast 10 mg tablet 2022-0 5-15 00:00: 00 Yes [id number] 10mg Take 1 tablet by mouth in the morning. [facility] tiotropium 18 mcg inhalation 2022-0 5-15 00:00: 00 Yes [id number] 18ug Inhale 1 capsule in the morning. [facility] montelukast 10 mg tablet 2022-0 -15 00:00: 00 Yes [id number] 10mg Take 1 tablet by mouth in the morning. [facility] montelukast 10 mg tablet 2022-0 -15 00:00: 00 Yes [id number] 10mg Take 1 tablet by mouth in the morning. [facility] montelukast 10 mg tablet 2022-0 -15 00:00: 00 Yes [id number] 10mg Take 1 tablet by mouth in the morning. [facility] montelukast 10 mg tablet 2022-0 5-15 00:00: 00 Yes [id number] 10mg Take 1 tablet by mouth in the morning. [facility] montelukast 10 mg tablet 3-0 5-15 00:00: 00 Yes [id number] 10mg Take 1 tablet by mouth in the morning. [facility] montelukast 10 mg tablet 3-0 5-15 00:00: 00 Yes [id number] 10mg Take 1 tablet by mouth in the morning. [facility] fluticasone propion-bella meteroL (ADVAIR DISKUS) 250-50 mcg/dose inhalation disk 15 00:00: 00 04-19 00:00 :00 No [id number] 1{puff} Inhale 1 Puff in the morning and 1 Puff in the evening. [facility] tiotropium 18 mcg inhalation 15 00:00: 00 04-19 00:00 :00 No [id number] 18ug Inhale 1 capsule in the morning. [facility] fluticasone propion-bella meteroL (ADVAIR DISKUS) 250-50 mcg/dose inhalation disk 01-31 00:00: 00 04-19 00:00 :00 No [id number] 1{puff} Inhale 1 Puff in the morning and 1 Puff in the evening. [facility] tiotropium 18 mcg inhalation 01-31 00:00: 00 04-19 00:00 :00 No [id number] 18ug Inhale 1 capsule in the morning. [facility] albuterol 90 mcg/actuati on inhaler 01-31 00:00: 00 02-04 00:00 :00 No [id number] 2{puff} Inhale 2 Puffs every 4 (four) hours as needed for Wheezing, Shortness of Breath or Bronchospa sm. [facility] ipratropium -albuteroL (DUONEB) 0.5 mg-3 mg(2.5 mg base)/3 mL nebulizer solution 3 mL 01-29 14:30: 00 01-29 13:29 :00 No 3mL 3 mL, Inhalation , ONCE, 1 dose, On 01/29/23 at 0930, MICHAEL [facility] predniSONE (DELTASONE) tablet 60 mg 01-29 13:30: 00 01-29 13:22 :00 No 60mg 60 mg, Oral, ONCE, 1 dose, On 01/29/23 at 0830, MICHAEL [facility] ipratropium -albuteroL (DUONEB) 0.5 mg-3 mg(2.5 mg base)/3 mL nebulizer solution 3 mL 01-27 13:00: 00 Yes 3mL 3 mL, Inhalation , QID, First dose on Tue01/27/23 at 0800, Until Discontinu ed, Routine [facility] ipratropium -albuteroL (DUONEB) 0.5 mg-3 mg(2.5 mg base)/3 mL nebulizer solution 3 mL 01-24 18:00: 00 01-24 18:15 :00 No 3mL 3 mL, Inhalation , ONCE, 1 dose, On Tue01/24/23 at 1300, MICHAEL [facility] furosemide (LASIX) injection 40 mg 01-24 18:00: 00 01-24 18:42 :00 No 40mg 40 mg, IV Push, ONCE, 1 dose, On Tue01/24/23 at 1300, MICHAEL [facility] aspirin tablet 325 mg 01-24 18:00: 00 01-24 18:44 :00 No 325mg 325 mg, Oral, ONCE, 1 dose, On Tue01/24/23 at 1300, STAT [facility] busPIRone 10 mg tablet 01-24 15:48: 43 Yes 10mg Take 1 tablet by mouth in the morning and 1 tablet in the evening. [facility] rivaroxaban 15 mg tablet 01-24 15:48: 43 Yes 15mg Take 1 tablet by mouth in the morning. [facility] ASPIRIN ORAL 01-24 15:48: 43 Yes 81mg Take 81 mg by mouth in the morning. tablet [facility] busPIRone 10 mg tablet 01-24 15:48: 43 Yes 10mg Take 1 tablet by mouth in the morning and 1 tablet in the evening. [facility] rivaroxaban 15 mg tablet 01-24 15:48: 43 Yes 15mg Take 1 tablet by mouth in the morning. [facility] ASPIRIN ORAL 01-24 15:48: 43 Yes 81mg Take 81 mg by mouth in the morning. tablet [facility] busPIRone 10 mg tablet 2023-0 5-08 15:48: 43 Yes 10mg Take 1 tablet by mouth in the morning and 1 tablet in the evening. [facility] rivaroxaban 15 mg tablet 2023-0 5-08 15:48: 43 Yes 15mg Take 1 tablet by mouth in the morning. [facility] ASPIRIN ORAL 2023-0 5-08 15:48: 43 Yes 81mg Take 81 mg by mouth in the morning. tablet [facility] busPIRone 10 mg tablet 3-0 5-08 15:48: 43 Yes 10mg Take 1 tablet by mouth in the morning and 1 tablet in the evening. [facility] rivaroxaban 15 mg tablet 2022-0 5-08 15:48: 43 Yes 15mg Take 1 tablet by mouth in the morning. [facility] ASPIRIN ORAL 2023-0 5-08 15:48: 43 Yes 81mg Take 81 mg by mouth in the morning. tablet [facility] busPIRone 10 mg tablet 3-0 5-08 15:48: 43 Yes 10mg Take 1 tablet by mouth in the morning and 1 tablet in the evening. [facility] rivaroxaban 15 mg tablet 2022-0 5-08 15:48: 43 Yes 15mg Take 1 tablet by mouth in the morning. [facility] ASPIRIN ORAL 2023-0 5-08 15:48: 43 Yes 81mg Take 81 mg by mouth in the morning. tablet [facility] busPIRone 10 mg tablet 3-0 5-08 15:48: 43 Yes 10mg Take 1 tablet by mouth in the morning and 1 tablet in the evening. [facility] rivaroxaban 15 mg tablet 3-0 5-08 15:48: 43 Yes 15mg Take 1 tablet by mouth in the morning. [facility] ASPIRIN ORAL 2023-0 5-08 15:48: 43 Yes 81mg Take 81 mg by mouth in the morning. tablet [facility] busPIRone 10 mg tablet 2023-0 5-08 15:48: 43 Yes 10mg Take 1 tablet by mouth in the morning and 1 tablet in the evening. [facility] rivaroxaban 15 mg tablet 2023-0 5-08 15:48: 43 Yes 15mg Take 1 tablet by mouth in the morning. [facility] ASPIRIN ORAL 2023-0 5-08 15:48: 43 Yes 81mg Take 81 mg by mouth in the morning. tablet [facility] busPIRone 10 mg tablet 2023-0 5-08 15:48: 43 Yes 10mg Take 1 tablet by mouth in the morning and 1 tablet in the evening. [facility] rivaroxaban 15 mg tablet 2023-0 5-08 15:48: 43 Yes 15mg Take 1 tablet by mouth in the morning. [facility] ASPIRIN ORAL 2023-0 5-08 15:48: 43 Yes 81mg Take 81 mg by mouth in the morning. tablet [facility] busPIRone 10 mg tablet 3-0 5-08 15:48: 43 Yes 10mg Take 1 tablet by mouth in the morning and 1 tablet in the evening. [facility] rivaroxaban 15 mg tablet 3-0 5-08 15:48: 43 Yes 15mg Take 1 tablet by mouth in the morning. [facility] ASPIRIN ORAL 2023-0 5-08 15:48: 43 Yes 81mg Take 81 mg by mouth in the morning. tablet [facility] busPIRone 10 mg tablet 3-0 5-08 15:48: 43 Yes 10mg Take 1 tablet by mouth in the morning and 1 tablet in the evening. [facility] rivaroxaban 15 mg tablet 3-0 5-08 15:48: 43 Yes 15mg Take 1 tablet by mouth in the morning. [facility] ASPIRIN ORAL 2023-0 5-08 15:48: 43 Yes 81mg Take 81 mg by mouth in the morning. tablet [facility] busPIRone 10 mg tablet 2023-0 5-08 15:48: 43 Yes 10mg Take 1 tablet by mouth in the morning and 1 tablet in the evening. [facility] rivaroxaban 15 mg tablet 2023-0 5-08 15:48: 43 Yes 15mg Take 1 tablet by mouth in the morning. [facility] ASPIRIN ORAL 2023-0 5-08 15:48: 43 Yes 81mg Take 81 mg by mouth in the morning. tablet [facility] busPIRone 10 mg tablet 01-24 15:48: 43 Yes 10mg Take 1 tablet by mouth in the morning and 1 tablet in the evening. [facility] rivaroxaban 15 mg tablet 01-24 15:48: 43 Yes 15mg Take 1 tablet by mouth in the morning. [facility] ASPIRIN ORAL 01-24 15:48: 43 Yes 81mg Take 81 mg by mouth in the morning. tablet [facility] busPIRone 10 mg tablet 01-24 15:48: 43 Yes 10mg Take 1 tablet by mouth in the morning and 1 tablet in the evening. [facility] rivaroxaban 15 mg tablet 01-24 15:48: 43 Yes 15mg Take 1 tablet by mouth in the morning. [facility] ASPIRIN ORAL 01-24 15:48: 43 Yes 81mg Take 81 mg by mouth in the morning. tablet [facility] levalbutero l (XOPENEX) nebulizer solution 1.25 mg 01-23 00:15: 00 01-22 23:35 :00 No 1.25mg 1.25 mg, Inhalation , ONCE, 1 dose, On 01/22/23 at 1915, Routine [facility] ipratropium (ATROVENT) 0.02 % nebulizer solution 0.5 mg 01-22 23:30: 00 01-22 23:36 :00 No .5mg 0.5 mg, Inhalation , ONCE, 1 dose, On 01/22/23 at 1830, MICHAEL [facility] diltiazem (CARDIZEM) tablet 30 mg 01-21 23:00: 00 Yes 30mg 30 mg, Oral, Q6H, First dose on Tue01/21/23 at 1800, Until Discontinu ed, Routine [facility]n isolone sod succ (SOLU-MEDRO L) injection 125 mg 01-21 23:00: 00 Yes 125mg 125 mg, Intravenou s, Q6H, First dose on Tue01/21/23 at 1800, Until Discontinu ed, Routine [facility] ipratropium -albuteroL (DUONEB) 0.5 mg-3 mg(2.5 mg base)/3 mL nebulizer solution 3 mL 01-21 20:45: 00 01-21 19:54 :00 No 3mL 3 mL, Inhalation , ONCE, 1 dose, On Tue01/21/23 at 1545, Routine [facility] diltiazem (CARDIZEM IV) injection 15 mg 01-21 19:45: 00 01-21 20:06 :00 No 15mg 15 mg, IV Push, ONCE, 1 dose, On Tue01/21/23 at 1445, STAT
Fa culty member approving Restricted medication : LOUIS HONG [facility] NaCl 0.9% (NS) bolus infusion 1,000 mL 01-21 19:45: 00 01-21 22:17 :00 No 1000mL at 999 mL/hr, 1,000 mL, IV Infusion, ONCE, 1 dose, On Tue01/21/23 at 1445, STAT [facility] predniSONE 20 mg tablet 01-20 00:00: 00 01-25 04:59 :00 No [id number] 40mg Take 2 tablets by mouth in the morning for 4 days. [facility] predniSONE 20 mg tablet 01-20 00:00: 00 01-25 04:59 :00 No [id number] 40mg Take 2 tablets by mouth in the morning for 4 days. [facility] predniSONE 20 mg tablet 01-20 00:00: 00 01-25 04:59 :00 No [id number] 40mg Take 2 tablets by mouth in the morning for 4 days. [facility] predniSONE 20 mg tablet 01-20 00:00: 00 01-25 04:59 :00 No [id number] 40mg Take 2 tablets by mouth in the morning for 4 days. [facility] predniSONE 20 mg tablet 01-20 00:00: 00 01-25 04:59 :00 No [id number] 40mg Take 2 tablets by mouth in the morning for 4 days. [facility] predniSONE 20 mg tablet 01-20 00:00: 00 01-25 04:59 :00 No [id number] 40mg Take 2 tablets by mouth in the morning for 4 days. [facility] predniSONE 20 mg tablet 01-20 00:00: 00 01-25 04:59 :00 No [id number] 40mg Take 2 tablets by mouth in the morning for 4 days. [facility] enoxaparin (LOVENOX) injection 40 mg 01-19 22:00: 00 Yes 40mg 40 mg, Subcutaneo us, DAILY, First dose on Tue01/19/23 at 1700, Until Discontinu ed, Routine [facility] levalbutero l (XOPENEX) nebulizer solution 1.25 mg 01-19 21:00: 00 Yes 1.25mg 1.25 mg, Inhalation , QID, First dose (after last modificati on) on Tue01/19/23 at 1600, Until Discontinu ed, [facility]ine [facility] ip[facility] ([facility]OVENT) 0.02 % nebulizer solution 0.5 mg 01-19 21:00: 00 Yes .5mg 0.5 mg, Inhalation , QID, First dose (after last modificati on) on Tue01/19/23 at 1600, Until Discontinu ed, Routine [facility] busPIRone 10 mg tablet 01-19 19:49: 16 Yes 10mg Take 1 tablet by mouth in the morning and 1 tablet in the evening. [facility] rivaroxaban 15 mg tablet 01-19 19:49: 16 Yes 15mg Take 1 tablet by mouth in the morning. [facility] ASPIRIN ORAL 01-19 19:49: 16 Yes 81mg Take 81 mg by mouth in the morning. tablet [facility] busPIRone 10 mg tablet 2022-0 - 19:49: 16 Yes 10mg Take 1 tablet by mouth in the morning and 1 tablet in the evening. [facility] rivaroxaban 15 mg tablet 0 01-19 19:49: 16 Yes 15mg Take 1 tablet by mouth in the morning. [facility] ASPIRIN ORAL 2022-0 01-19 19:49: 16 Yes 81mg Take 81 mg by mouth in the morning. tablet [facility] busPIRone 10 mg tablet 0 01-19 19:49: 16 Yes 10mg Take 1 tablet by mouth in the morning and 1 tablet in the evening. [facility] rivaroxaban 15 mg tablet 0 01-19 19:49: 16 Yes 15mg Take 1 tablet by mouth in the morning. [facility] ASPIRIN ORAL 2022-0 01-19 19:49: 16 Yes 81mg Take 81 mg by mouth in the morning. tablet [facility] busPIRone 10 mg tablet 0 01-19 19:49: 16 Yes 10mg Take 1 tablet by mouth in the morning and 1 tablet in the evening. [facility] rivaroxaban 15 mg tablet 0 01-19 19:49: 16 Yes 15mg Take 1 tablet by mouth in the morning. [facility] ASPIRIN ORAL 2022-0 01-19 19:49: 16 Yes 81mg Take 81 mg by mouth in the morning. tablet [facility] busPIRone 10 mg tablet 2022-0 01-19 19:49: 16 Yes 10mg Take 1 tablet by mouth in the morning and 1 tablet in the evening. [facility] rivaroxaban 15 mg tablet 2022-0 01-19 19:49: 16 Yes 15mg Take 1 tablet by mouth in the morning. [facility] ASPIRIN ORAL 2022-0 - 19:49: 16 Yes 81mg Take 81 mg by mouth in the morning. tablet [facility] busPIRone 10 mg tablet 2022-0 01-19 19:49: 16 Yes 10mg Take 1 tablet by mouth in the morning and 1 tablet in the evening. [facility] rivaroxaban 15 mg tablet 01-19 19:49: 16 Yes 15mg Take 1 tablet by mouth in the morning. [facility] ASPIRIN ORAL 01-19 19:49: 16 Yes 81mg Take 81 mg by mouth in the morning. tablet [facility] benazepriL 10 mg tablet 01-19 17:28: 05 01-19 00:00 :00 No 10mg Take 1 tablet by mouth in the morning. [facility] potassium chloride (KCL-20 ORAL) 01-19 17:28: 01-19 00:00 :00 No 1{tbl} Take 1 tablet by mouth in the morning and 1 tablet in the evening. [facility] aspirin chewable tablet 81 mg 01-19 14:00: 00 Yes 81mg 81 mg, Oral, DAILY, First dose on Tue01/19/23 at 0900, Until Discontinu ed [facility] predniSONE (DELTASONE) tablet 40 mg 01-19 14:00: 00 01-24 13:59 :00 No 40mg 40 mg, Oral, DAILY, 5 doses, First dose on Tue01/19/23 at 0900, Last dose on Tue01/23/23 at 0900, Routine [facility] busPIRone (BUSPAR) tablet 10 mg 01-19 13:00: 00 Yes 10mg 10 mg, Oral, BID, First dose on Tue01/19/23 at 0800, Until Discontinu ed, Routine [facility] ipratropium (ATROVENT) 0.02 % nebulizer solution 0.5 mg 01-19 13:00: 00 01-19 19:13 :37 No .5mg 0.5 mg, Inhalation , TID, First dose (after last modificati on) on Tue01/19/23 at 0800, Until Discontinu ed, Routine [facility] levalbutero l (XOPENEX) nebulizer solution 1.25 mg 01-19 13:00: 00 01-19 19:13 :37 No 1.25mg 1.25 mg, Inhalation , TID, First dose on Tue01/19/23 at 0800, Until Discontinu ed, Routine [facility] sodium polystyrene sulfonate (KAYEXALATE ) 15 gram/60 mL suspension 15 g 01-19 13:00: 00 01-19 13:22 :00 No 15g 15 g, Oral, ONCE, 1 dose, On Tue01/19/23 at 0800, Routine [facility] ipratropium (ATROVENT) 0.02 % nebulizer solution 0.5 mg 01-19 09:00: 00 01-19 12:09 :19 No .5mg 0.5 mg, Inhalation , Q4H, First dose on Tue01/19/23 at 0400, Until Discontinu ed, Routine [facility] levoFLOXaci n (LEVAQUIN) tablet 500 mg 01-19 08:15: 00 01-24 08:14 :00 No 500mg 500 mg, Oral, Q24H ABX, 5 doses, First dose on Tue01/19/23 at 0315, Last dose on Tue01/23/23 at 0315, MICHAEL
Re ason for Anti-Infec tive: Empiric Therapy for Suspected Infection< br>Empiric Therapy Site: Respirator y
Durat ion of therapy: 5 days [facility] guaiFENesin 100 mg/5 mL solution 200 mg 01-19 08:04: 52 Yes 200mg 200 mg, Oral, Q6HPRN, Starting on Tue01/19/23 at 0304, Until Discontinu ed, Routine, Cough [facility] ondansetron (ZOFRAN (PF)) injection 4 mg 01-19 08:03: 53 Yes 4mg 4 mg, Slow IV Push, Q6HPRN, Starting on Tue01/19/23 at 0303, Until Discontinu ed, Routine, Nausea and Vomiting (N/V) [facility] morpHINE (2 mg/mL) injection 2 mg 01-19 08:03: 43 01-20 08:02 :43 No 2mg 2 mg, Slow IV Push, Q4HPRN, Starting on Tue01/19/23 at 0303, Until Elizabeth 01/20/23 at 0302, Routine, Pain (scale 7-10) [facility] HYDROcodone -acetaminop hen (NORCO 5) 5-325 mg tablet 1 tablet 01-19 08:03: 39 01-21 08:02 :39 No 1{tbl} 1 tablet, Oral, Q6HPRN, Starting on Tue01/19/23 at 0303, Until Tue01/21/23 at 0302, Routine, Pain (scale 4-6) [facility] acetaminoph en (TYLENOL) tablet 650 mg 01-19 08:03: 35 Yes 650mg 650 mg, Oral, Q6HPRN, Starting on Tue01/19/23 at 030, Until Discontinu ed, Routine, Pain (scale 1-3) [facility] levalbutero l (XOPENEX) nebulizer solution 1.25 mg 01-19 07:30: 00 01-19 07:08 :00 No 1.25mg 1.25 mg, Inhalation , ONCE, 1 dose, On Tue01/19/23 at 0230, Routine [facility] dexamethaso ne sod phos PF injection 10 mg 01-19 06:58: 00 01-19 07:06 :00 No 10mg 10 mg, Oral, ONCE, 1 dose, On Tue01/19/23 at 0200, 1 mL [facility] ipratropium (ATROVENT) 0.02 % nebulizer solution 0.5 mg 01-19 06:45: 00 01-19 07:09 :00 No .5mg 0.5 mg, Inhalation , ONCE, 1 dose, On Tue01/19/23 at 0145, MICHAEL [facility] ipratropium 0.02 % nebulizer solution 01-19 00:00: 00 Yes [id number] .5mg Inhale 2.5 mL every 6 (six) hours as needed for Wheezing, Shortness of Breath, Bronchospa sm or Chest tightness. [facility] guaiFENesin 100 mg/5 mL solution 01-19 00:00: 00 Yes [id number] 200mg Take 10 mL by mouth every 6 (six) hours as needed for Cough. [facility] ipratropium 0.02 % nebulizer solution 01-19 00:00: 00 Yes [id number] .5mg Inhale 2.5 mL every 6 (six) hours as needed for Wheezing, Shortness of Breath, Bronchospa sm or Chest tightness. [facility] guaiFENesin 100 mg/5 mL solution 01-19 00:00: 00 Yes [id number] 200mg Take 10 mL by mouth every 6 (six) hours as needed for Cough. [facility] ipratropium 0.02 % nebulizer solution 01-19 00:00: 00 Yes [id number] .5mg Inhale 2.5 mL every 6 (six) hours as needed for Wheezing, Shortness of Breath, Bronchospa sm or Chest tightness. [facility] guaiFENesin 100 mg/5 mL solution 01-19 00:00: 00 Yes [id number] 200mg Take 10 mL by mouth every 6 (six) hours as needed for Cough. [facility] ipratropium 0.02 % nebulizer solution 01-19 00:00: 00 Yes [id number] .5mg Inhale 2.5 mL every 6 (six) hours as needed for Wheezing, Shortness of Breath, Bronchospa sm or Chest tightness. [facility] guaiFENesin 100 mg/5 mL solution 01-19 00:00: 00 Yes [id number] 200mg Take 10 mL by mouth every 6 (six) hours as needed for Cough. [facility] ipratropium 0.02 % nebulizer solution 01-19 00:00: 00 Yes [id number] .5mg Inhale 2.5 mL every 6 (six) hours as needed for Wheezing, Shortness of Breath, Bronchospa sm or Chest tightness. [facility] guaiFENesin 100 mg/5 mL solution 01-19 00:00: 00 Yes [id number] 200mg Take 10 mL by mouth every 6 (six) hours as needed for Cough. [facility] ipratropium 0.02 % nebulizer solution 01-19 00:00: 00 Yes [id number] .5mg Inhale 2.5 mL every 6 (six) hours as needed for Wheezing, Shortness of Breath, Bronchospa sm or Chest tightness. [facility] guaiFENesin 100 mg/5 mL solution 01-19 00:00: 00 Yes [id number] 200mg Take 10 mL by mouth every 6 (six) hours as needed for Cough. [facility] ipratropium 0.02 % nebulizer solution 01-19 00:00: 00 Yes [id number] .5mg Inhale 2.5 mL every 6 (six) hours as needed for Wheezing, Shortness of Breath, Bronchospa sm or Chest tightness. [facility] guaiFENesin 100 mg/5 mL solution 01-19 00:00: 00 Yes [id number] 200mg Take 10 mL by mouth every 6 (six) hours as needed for Cough. [facility] ipratropium 0.02 % nebulizer solution 01-19 00:00: 00 Yes [id number] .5mg Inhale 2.5 mL every 6 (six) hours as needed for Wheezing, Shortness of Breath, Bronchospa sm or Chest tightness. [facility] guaiFENesin 100 mg/5 mL solution 01-19 00:00: 00 Yes [id number] 200mg Take 10 mL by mouth every 6 (six) hours as needed for Cough. [facility] guaiFENesin 100 mg/5 mL solution 0 01-19 00:00: 00 Yes [id number] 200mg Take 10 mL by mouth every 6 (six) hours as needed for Cough. [facility] guaiFENesin 100 mg/5 mL solution 2023-0 5-03 00:00: 00 Yes [id number] 200mg Take 10 mL by mouth every 6 (six) hours as needed for Cough. [facility]/5 mL solution 2023-0 5-03 00:00: 00 Yes [id number] 200mg Take 10 mL by mouth every 6 (six) hours as needed for Cough. [facility]ai[facility] mg/5 mL solution 2023-0 5-03 00:00: 00 Yes [id number] 200mg Take 10 mL by mouth every 6 (six) hours as needed for Cough. [facility] guaiFENesin 100 mg/5 mL solution 3-0 5-03 00:00: 00 Yes [id number] 200mg Take 10 mL by mouth every 6 (six) hours as needed for Cough. [facility] guaiFENesin 100 mg/5 mL solution 3-0 5-03 00:00: 00 Yes [id number] 200mg Take 10 mL by mouth every 6 (six) hours as needed for Cough. [facility] guaiFENesin 100 mg/5 mL solution 3-0 5-03 00:00: 00 Yes [id number] 200mg Take 10 mL by mouth every 6 (six) hours as needed for Cough. [facility] guaiFENesin 100 mg/5 mL solution 3-0 5-03 00:00: 00 Yes [id number] 200mg Take 10 mL by mouth every 6 (six) hours as needed for Cough. [facility] guaiFENesin 100 mg/5 mL solution 3-0 5-03 00:00: 00 Yes [id number] 200mg Take 10 mL by mouth every 6 (six) hours as needed for Cough. [facility] guaiFENesin 100 mg/5 mL solution 3-0 5-03 00:00: 00 Yes [id number] 200mg Take 10 mL by mouth every 6 (six) hours as needed for Cough. [facility] guaiFENesin 100 mg/5 mL solution 2023-0 5-03 00:00: 00 Yes [id number] 200mg Take 10 mL by mouth every 6 (six) hours as needed for Cough. [facility] guaiFENesin 100 mg/5 mL solution 01-19 00:00: 00 Yes [id number] 200mg Take 10 mL by mouth every 6 (six) hours as needed for Cough. [facility] guaiFENesin 100 mg/5 mL solution 01-19 00:00: 00 Yes [id number] 200mg Take 10 mL by mouth every 6 (six) hours as needed for Cough. [facility] ipratropium 0.02 % nebulizer solution 01-19 00:00: 00 Yes [id number] .5mg Inhale 2.5 mL every 6 (six) hours as needed for Wheezing, Shortness of Breath, Bronchospa sm or Chest tightness. [facility] guaiFENesin 100 mg/5 mL solution 01-19 00:00: 00 Yes [id number] 200mg Take 10 mL by mouth every 6 (six) hours as needed for Cough. [facility] ipratropium 0.02 % nebulizer solution 01-19 00:00: 00 Yes [id number] .5mg Inhale 2.5 mL every 6 (six) hours as needed for Wheezing, Shortness of Breath, Bronchospa sm or Chest tightness. [facility] guaiFENesin 100 mg/5 mL solution 01-19 00:00: 00 Yes [id number] 200mg Take 10 mL by mouth every 6 (six) hours as needed for Cough. [facility] ipratropium 0.02 % nebulizer solution 01-19 00:00: 00 Yes [id number] .5mg Inhale 2.5 mL every 6 (six) hours as needed for Wheezing, Shortness of Breath, Bronchospa sm or Chest tightness. [facility] guaiFENesin 100 mg/5 mL solution 01-19 00:00: 00 Yes [id number] 200mg Take 10 mL by mouth every 6 (six) hours as needed for Cough. [facility] ipratropium 0.02 % nebulizer solution 01-19 00:00: 00 Yes [id number] .5mg Inhale 2.5 mL every 6 (six) hours as needed for Wheezing, Shortness of Breath, Bronchospa sm or Chest tightness. [facility] guaiFENesin 100 mg/5 mL solution 01-19 00:00: 00 Yes [id number] 200mg Take 10 mL by mouth every 6 (six) hours as needed for Cough. [facility] ipratropium 0.02 % nebulizer solution 01-19 00:00: 00 Yes [id number] .5mg Inhale 2.5 mL every 6 (six) hours as needed for Wheezing, Shortness of Breath, Bronchospa sm or Chest tightness. [facility] guaiFENesin 100 mg/5 mL solution 01-19 00:00: 00 Yes [id number] 200mg Take 10 mL by mouth every 6 (six) hours as needed for Cough. [facility] ipratropium 0.02 % nebulizer solution 01-19 00:00: 00 Yes [id number] .5mg Inhale 2.5 mL every 6 (six) hours as needed for Wheezing, Shortness of Breath, Bronchospa sm or Chest tightness. [facility] guaiFENesin 100 mg/5 mL solution 01-19 00:00: 00 Yes [id number] 200mg Take 10 mL by mouth every 6 (six) hours as needed for Cough. [facility] ipratropium 0.02 % nebulizer solution 01-19 00:00: 00 Yes [id number] .5mg Inhale 2.5 mL every 6 (six) hours as needed for Wheezing, Shortness of Breath, Bronchospa sm or Chest tightness. [facility] guaiFENesin 100 mg/5 mL solution 01-19 00:00: 00 Yes [id number] 200mg Take 10 mL by mouth every 6 (six) hours as needed for Cough. [facility] ipratropium 0.02 % nebulizer solution 01-19 00:00: 00 Yes [id number] .5mg Inhale 2.5 mL every 6 (six) hours as needed for Wheezing, Shortness of Breath, Bronchospa sm or Chest tightness. [facility] guaiFENesin 100 mg/5 mL solution 01-19 00:00: 00 Yes [id number] 200mg Take 10 mL by mouth every 6 (six) hours as needed for Cough. [facility] ipratropium 0.02 % nebulizer solution 01-19 00:00: 00 Yes [id number] .5mg Inhale 2.5 mL every 6 (six) hours as needed for Wheezing, Shortness of Breath, Bronchospa sm or Chest tightness. [facility] guaiFENesin 100 mg/5 mL solution 01-19 00:00: 00 Yes [id number] 200mg Take 10 mL by mouth every 6 (six) hours as needed for Cough. [facility] ipratropium 0.02 % nebulizer solution 01-19 00:00: 00 Yes [id number] .5mg Inhale 2.5 mL every 6 (six) hours as needed for Wheezing, Shortness of Breath, Bronchospa sm or Chest tightness. [facility] guaiFENesin 100 mg/5 mL solution 01-19 00:00: 00 Yes [id number] 200mg Take 10 mL by mouth every 6 (six) hours as needed for Cough. [facility] ipratropium 0.02 % nebulizer solution 01-19 00:00: 00 Yes [id number] .5mg Inhale 2.5 mL every 6 (six) hours as needed for Wheezing, Shortness of Breath, Bronchospa sm or Chest tightness. [facility] guaiFENesin 100 mg/5 mL solution 01-19 00:00: 00 Yes [id number] 200mg Take 10 mL by mouth every 6 (six) hours as needed for Cough. [facility] ipratropium 0.02 % nebulizer solution 01-19 00:00: 00 02-17 00:00 :00 No [id number] .5mg Inhale 2.5 mL every 6 (six) hours as needed for Wheezing, Shortness of Breath, Bronchospa sm or Chest tightness. [facility] levoFLOXaci n 500 mg tablet 01-19 00:00: 00 01-24 04:59 :00 No [id number] 500mg Take 1 tablet by mouth in the morning for 4 days. [facility] levoFLOXaci n 500 mg tablet 01-19 00:00: 00 01-24 04:59 :00 No [id number] 500mg Take 1 tablet by mouth in the morning for 4 days. [facility] levoFLOXaci n 500 mg tablet 01-19 00:00: 00 01-24 04:59 :00 No [id number] 500mg Take 1 tablet by mouth in the morning for 4 days. [facility] levoFLOXaci n 500 mg tablet 01-19 00:00: 00 01-24 04:59 :00 No [id number] 500mg Take 1 tablet by mouth in the morning for 4 days. [facility] levoFLOXaci n 500 mg tablet 01-19 00:00: 00 01-24 04:59 :00 No [id number] 500mg Take 1 tablet by mouth in the morning for 4 days. [facility] levoFLOXaci n 500 mg tablet 01-19 00:00: 00 01-24 04:59 :00 No [id number] 500mg Take 1 tablet by mouth in the morning for 4 days. [facility] levalbutero l (XOPENEX) nebulizer solution 1.25 mg 01-17 13:00: 00 01-17 11:56 :39 No 1.25mg 1.25 mg, Inhalation , TID, First dose on Tue01/17/23 at 0800, Until Discontinu ed, Routine [facility] methylpredn isolone sod succ (SOLU-MEDRO L) injection 125 mg 01-17 12:00: 00 01-17 11:11 :00 No 125mg 125 mg, Intravenou s, ONCE, 1 dose, On Tue01/17/23 at 0700, 2 mL [facility] ipratropium (ATROVENT) 0.02 % nebulizer solution 0.5 mg 01-17 11:45: 00 01-17 11:42 :00 No .5mg 0.5 mg, Inhalation , ONCE, 1 dose, On Tue01/17/23 at 0645, MICHAEL [facility] albuterol 90 mcg/actuati on inhaler 01-17 00:00: 00 Yes [id number] 2{puff} Inhale 2 Puffs every 4 (four) hours as needed for Wheezing or Shortness of Breath. [facility] albuterol 2.5 mg /3 mL (0.083 %) nebulizer solution 01-17 00:00: 00 Yes [id number] 2.5mg Inhale 3 mL every 4 (four) hours. May also nebulize one extra every 6 hours. [facility] predniSONE 50 mg tablet 01-17 00:00: 00 Yes [id number] 50mg Take 1 tablet by mouth in the morning. [facility] benzonatate 200 mg capsule 01-17 00:00: 00 Yes [id number] 200mg Take 1 capsule by mouth 3 (three) times daily as needed for Cough. [facility] ipratropium 0.02 % nebulizer solution 01-17 00:00: 00 Yes [id number] .5mg Inhale 2.5 mL every 6 (six) hours as needed for Wheezing, Shortness of Breath, Bronchospa sm or Chest tightness. [facility] albuterol 90 mcg/actuati on inhaler 01-17 00:00: 00 Yes [id number] 2{puff} Inhale 2 Puffs every 4 (four) hours as needed for Wheezing or Shortness of Breath. [facility] albuterol 2.5 mg /3 mL (0.083 %) nebulizer solution 01-17 00:00: 00 Yes [id number] 2.5mg Inhale 3 mL every 4 (four) hours. May also nebulize one extra every 6 hours. [facility] 01-17 00:00: 00 Yes [id number] 200mg Take 1 capsule by mouth 3 (three) times daily as needed for Cough. [facility] albuterol 90 mcg/actuati on inhaler 01-17 00:00: 00 Yes [id number] 2{puff} Inhale 2 Puffs every 4 (four) hours as needed for Wheezing or Shortness of Breath. [facility] /3 mL (0.083 %) nebulizer solution 01-17 00:00: 00 Yes [id number] 2.5mg Inhale 3 mL every 4 (four) hours. May also nebulize one extra every 6 hours. [facility] mg capsule 01-17 00:00: 00 Yes [id number] 200mg Take 1 capsule by mouth 3 (three) times daily as needed for Cough. [facility] mcg/actuati on inhaler 01-17 00:00: 00 Yes [id number] 2{puff} Inhale 2 Puffs every 4 (four) hours as needed for Wheezing or Shortness of Breath. [facility] albuterol 2.5 mg /3 mL (0.083 %) nebulizer solution 01-17 00:00: 00 Yes [id number] 2.5mg Inhale 3 mL every 4 (four) hours. May also nebulize one extra every 6 hours. [facility] benzonatate 200 mg capsule 01-17 00:00: 00 Yes [id number] 200mg Take 1 capsule by mouth 3 (three) times daily as needed for Cough. [facility] mcg/actuati on inhaler 01-17 00:00: 00 Yes [id number] 2{puff} Inhale 2 Puffs every 4 (four) hours as needed for Wheezing or Shortness of Breath. [facility] 2.5 mg /3 mL (0.083 %) nebulizer solution 01-17 00:00: 00 Yes [id number] 2.5mg Inhale 3 mL every 4 (four) hours. May also nebulize one extra every 6 hours. [facility] benzonatate 200 mg capsule 01-17 00:00: 00 Yes [id number] 200mg Take 1 capsule by mouth 3 (three) times daily as needed for Cough. [facility] albuterol 90 mcg/actuati on inhaler 01-17 00:00: 00 Yes [id number] 2{puff} Inhale 2 Puffs every 4 (four) hours as needed for Wheezing or Shortness of Breath. [facility] albuterol 2.5 mg /3 mL (0.083 %) nebulizer solution 01-17 00:00: 00 Yes [id number] 2.5mg Inhale 3 mL every 4 (four) hours. May also nebulize one extra every 6 hours. [facility] benzonatate 200 mg capsule 01-17 00:00: 00 Yes [id number] 200mg Take 1 capsule by mouth 3 (three) times daily as needed for Cough. [facility] albuterol 90 mcg/actuati on inhaler 01-17 00:00: 00 Yes [id number] 2{puff} Inhale 2 Puffs every 4 (four) hours as needed for Wheezing or Shortness of Breath. [facility] albuterol 2.5 mg /3 mL (0.083 %) nebulizer solution 01-17 00:00: 00 Yes [id number] 2.5mg Inhale 3 mL every 4 (four) hours. May also nebulize one extra every 6 hours. [facility] benzonatate 200 mg capsule 01-17 00:00: 00 Yes [id number] 200mg Take 1 capsule by mouth 3 (three) times daily as needed for Cough. [facility] albuterol 90 mcg/actuati on inhaler 01-17 00:00: 00 Yes [id number] 2{puff} Inhale 2 Puffs every 4 (four) hours as needed for Wheezing or Shortness of Breath. [facility] albuterol 2.5 mg /3 mL (0.083 %) nebulizer solution 01-17 00:00: 00 Yes [id number] 2.5mg Inhale 3 mL every 4 (four) hours. May also nebulize one extra every 6 hours. [facility] mg [facility] 01-17 00:00: 00 Yes [id number] 200mg Take 1 capsule by mouth 3 (three) times daily as needed for Cough. [facility] mcg/actuati on inhaler 01-17 00:00: 00 Yes [id number] 2{puff} Inhale 2 Puffs every 4 (four) hours as needed for Wheezing or Shortness of Breath. [facility] albuterol 2.5 mg /3 mL (0.083 %) nebulizer solution 01-17 00:00: 00 Yes [id number] 2.5mg Inhale 3 mL every 4 (four) hours. May also nebulize one extra every 6 hours. [facility] benzonatate 200 mg capsule 01-17 00:00: 00 Yes [id number] 200mg Take 1 capsule by mouth 3 (three) times daily as needed for Cough. [facility]ol [facility] mcg/actuati on inhaler 01-17 00:00: 00 Yes [id number] 2{puff} Inhale 2 Puffs every 4 (four) hours as needed for Wheezing or Shortness of Breath. [facility] albuterol 2.5 mg /3 mL (0.083 %) nebulizer solution 01-17 00:00: 00 Yes [id number] 2.5mg Inhale 3 mL every 4 (four) hours. May also nebulize one extra every 6 hours. [facility] mg [facility] 01-17 00:00: 00 Yes [id number] 200mg Take 1 capsule by mouth 3 (three) times daily as needed for Cough. [facility] al[facility]erol 90 mcg/actuati on inhaler 01-17 00:00: 00 Yes [id number] 2{puff} Inhale 2 Puffs every 4 (four) hours as needed for Wheezing or Shortness of Breath. [facility] al[facility]erol 2.5 mg /3 mL (0.083 %) nebulizer solution 01-17 00:00: 00 Yes [id number] 2.5mg Inhale 3 mL every 4 (four) hours. May also nebulize one extra every 6 hours. [facility] mg capsule 01-17 00:00: 00 Yes [id number] 200mg Take 1 capsule by mouth 3 (three) times daily as needed for Cough. [facility] al[facility]erol 90 mcg/actuati on inhaler 01-17 00:00: 00 Yes [id number] 2{puff} Inhale 2 Puffs every 4 (four) hours as needed for Wheezing or Shortness of Breath. [facility] albuterol 2.5 mg /3 mL (0.083 %) nebulizer solution 01-17 00:00: 00 Yes [id number] 2.5mg Inhale 3 mL every 4 (four) hours. May also nebulize one extra every 6 hours. [facility] benzonatate 200 mg capsule 01-17 00:00: 00 Yes [id number] 200mg Take 1 capsule by mouth 3 (three) times daily as needed for Cough. [facility] albuterol 90 mcg/actuati on inhaler 01-17 00:00: 00 Yes [id number] 2{puff} Inhale 2 Puffs every 4 (four) hours as needed for Wheezing or Shortness of Breath. [facility] albuterol 2.5 mg /3 mL (0.083 %) nebulizer solution 01-17 00:00: 00 Yes [id number] 2.5mg Inhale 3 mL every 4 (four) hours. May also nebulize one extra every 6 hours. [facility] mg capsule 01-17 00:00: 00 Yes [id number] 200mg Take 1 capsule by mouth 3 (three) times daily as needed for Cough. [facility] albuterol 90 mcg/actuati on inhaler 01-17 00:00: 00 Yes [id number] 2{puff} Inhale 2 Puffs every 4 (four) hours as needed for Wheezing or Shortness of Breath. [facility] al[facility]erol 2.5 mg /3 mL (0.083 %) nebulizer solution 01-17 00:00: 00 Yes [id number] 2.5mg Inhale 3 mL every 4 (four) hours. May also nebulize one extra every 6 hours. [facility] mg capsule 01-17 00:00: 00 Yes [id number] 200mg Take 1 capsule by mouth 3 (three) times daily as needed for Cough. [facility] albuterol 90 mcg/actuati on inhaler 01-17 00:00: 00 Yes [id number] 2{puff} Inhale 2 Puffs every 4 (four) hours as needed for Wheezing or Shortness of Breath. [facility] albuterol 2.5 mg /3 mL (0.083 %) nebulizer solution 01-17 00:00: 00 Yes [id number] 2.5mg Inhale 3 mL every 4 (four) hours. May also nebulize one extra every 6 hours. [facility] benzonatate 200 mg capsule 01-17 00:00: 00 Yes [id number] 200mg Take 1 capsule by mouth 3 (three) times daily as needed for Cough. [facility] 90 mcg/actuati on inhaler 01-17 00:00: 00 Yes [id number] 2{puff} Inhale 2 Puffs every 4 (four) hours as needed for Wheezing or Shortness of Breath. [facility]erol 2.5 mg /3 mL (0.083 %) nebulizer solution 01-17 00:00: 00 Yes [id number] 2.5mg Inhale 3 mL every 4 (four) hours. May also nebulize one extra every 6 hours. [facility] benzonatate 200 mg capsule 01-17 00:00: 00 Yes [id number] 200mg Take 1 capsule by mouth 3 (three) times daily as needed for Cough. [facility] albuterol 90 mcg/actuati on inhaler 01-17 00:00: 00 Yes [id number] 2{puff} Inhale 2 Puffs every 4 (four) hours as needed for Wheezing or Shortness of Breath. [facility]erol 2.5 mg /3 mL (0.083 %) nebulizer solution 01-17 00:00: 00 Yes [id number] 2.5mg Inhale 3 mL every 4 (four) hours. May also nebulize one extra every 6 hours. [facility] mg capsule 01-17 00:00: 00 Yes [id number] 200mg Take 1 capsule by mouth 3 (three) times daily as needed for Cough. [facility] al[facility]erol 2.5 mg /3 mL (0.083 %) nebulizer solution 01-17 00:00: 00 Yes [id number] 2.5mg Inhale 3 mL every 4 (four) hours. May also nebulize one extra every 6 hours. [facility] mg capsule 01-17 00:00: 00 Yes [id number] 200mg Take 1 capsule by mouth 3 (three) times daily as needed for Cough. [facility] al[facility]erol 2.5 mg /3 mL (0.083 %) nebulizer solution 01-17 00:00: 00 Yes [id number] 2.5mg Inhale 3 mL every 4 (four) hours. May also nebulize one extra every 6 hours. [facility] mg capsule 01-17 00:00: 00 Yes [id number] 200mg Take 1 capsule by mouth 3 (three) times daily as needed for Cough. [facility] albuterol 2.5 mg /3 mL (0.083 %) nebulizer solution 01-17 00:00: 00 Yes [id number] 2.5mg Inhale 3 mL every 4 (four) hours. May also nebulize one extra every 6 hours. [facility] benzonatate 200 mg capsule 01-17 00:00: 00 Yes [id number] 200mg Take 1 capsule by mouth 3 (three) times daily as needed for Cough. [facility] albuterol 2.5 mg /3 mL (0.083 %) nebulizer solution 01-17 00:00: 00 Yes [id number] 2.5mg Inhale 3 mL every 4 (four) hours. May also nebulize one extra every 6 hours. [facility] albuterol 2.5 mg /3 mL (0.083 %) nebulizer solution 01-17 00:00: 00 Yes [id number] 2.5mg Inhale 3 mL every 4 (four) hours. May also nebulize one extra every 6 hours. [facility] albuterol 2.5 mg /3 mL (0.083 %) nebulizer solution 01-17 00:00: 00 Yes [id number] 2.5mg Inhale 3 mL every 4 (four) hours. May also nebulize one extra every 6 hours. [facility] albuterol 2.5 mg /3 mL (0.083 %) nebulizer solution 01-17 00:00: 00 Yes [id number] 2.5mg Inhale 3 mL every 4 (four) hours. May also nebulize one extra every 6 hours. [facility] albuterol 2.5 mg /3 mL (0.083 %) nebulizer solution 01-17 00:00: 00 Yes [id number] 2.5mg Inhale 3 mL every 4 (four) hours. May also nebulize one extra every 6 hours. [facility] albuterol 2.5 mg /3 mL (0.083 %) nebulizer solution 01-17 00:00: 00 Yes [id number] 2.5mg Inhale 3 mL every 4 (four) hours. May also nebulize one extra every 6 hours. [facility] albuterol 2.5 mg /3 mL (0.083 %) nebulizer solution 01-17 00:00: 00 03-03 00:00 :00 No [id number] 2.5mg Inhale 3 mL every 4 (four) hours. May also nebulize one extra every 6 hours. [facility] benzonatate 200 mg capsule 01-17 00:00: 00 02-17 00:00 :00 No [id number] 200mg Take 1 capsule by mouth 3 (three) times daily as needed for Cough. [facility] albuterol 90 mcg/actuati on inhaler 01-17 00:00: 00 02-04 00:00 :00 No [id number] 2{puff} Inhale 2 Puffs every 4 (four) hours as needed for Wheezing or Shortness of Breath. [facility] predniSONE 50 mg tablet 01-17 00:00: 00 01-19 00:00 :00 No [id number] 50mg Take 1 tablet by mouth in the morning. [facility] ipratropium 0.02 % nebulizer solution 01-17 00:00: 00 01-19 00:00 :00 No [id number] .5mg Inhale 2.5 mL every 6 (six) hours as needed for Wheezing, Shortness of Breath, Bronchospa sm or Chest tightness. [facility] potassium chloride (KCL-20 ORAL) 01-07 14:37: 58 Yes 1{tbl} Take 1 tablet by mouth in the morning and 1 tablet in the evening. [facility] potassium chloride (KCL-20 ORAL) 01-07 14:37: 58 Yes 1{tbl} Take 1 tablet by mouth in the morning and 1 tablet in the evening. [facility] potassium chloride (KCL-20 ORAL) 01-07 14:37: 58 Yes 1{tbl} Take 1 tablet by mouth in the morning and 1 tablet in the evening. [facility] potassium chloride (KCL-20 ORAL) 01-07 14:37: 58 Yes 1{tbl} Take 1 tablet by mouth in the morning and 1 tablet in the evening. [facility] busPIRone 10 mg tablet 3-0 01-07 14:36: 57 Yes 10mg Take 1 tablet by mouth in the morning and 1 tablet in the evening. [facility] rivaroxaban 15 mg tablet 2022-0 01-07 14:36: 57 Yes 15mg Take 1 tablet by mouth in the morning. [facility] ASPIRIN ORAL 3-0 01-07 14:36: 57 Yes 81mg Take 81 mg by mouth in the morning. tablet [facility] benazepriL 10 mg tablet 2022-0 01-07 14:36: 57 Yes 10mg Take 1 tablet by mouth in the morning. [facility] busPIRone 10 mg tablet 2022-0 01-07 14:36: 57 Yes 10mg Take 1 tablet by mouth in the morning and 1 tablet in the evening. [facility] rivaroxaban 15 mg tablet 2022-0 01-07 14:36: 57 Yes 15mg Take 1 tablet by mouth in the morning. [facility] ASPIRIN ORAL 2022-0 01-07 14:36: 57 Yes 81mg Take 81 mg by mouth in the morning. tablet [facility] benazepriL 10 mg tablet 2022-0 01-07 14:36: 57 Yes 10mg Take 1 tablet by mouth in the morning. [facility] busPIRone 10 mg tablet 2022-0 01-07 14:36: 57 Yes 10mg Take 1 tablet by mouth in the morning and 1 tablet in the evening. [facility] rivaroxaban 15 mg tablet 2022-0 01-07 14:36: 57 Yes 15mg Take 1 tablet by mouth in the morning. [facility] ASPIRIN ORAL 3-0 01-07 14:36: 57 Yes 81mg Take 81 mg by mouth in the morning. tablet [facility] benazepriL 10 mg tablet 3-0 01-07 14:36: 57 Yes 10mg Take 1 tablet by mouth in the morning. [facility] busPIRone 10 mg tablet 3-0 4-21 14:36: 57 Yes 10mg Take 1 tablet by mouth in the morning and 1 tablet in the evening. [facility] rivaroxaban 15 mg tablet 2022-0 01-07 14:36: 57 Yes 15mg Take 1 tablet by mouth in the morning. [facility] ASPIRIN ORAL 3-0 01-07 14:36: 57 Yes 81mg Take 81 mg by mouth in the morning. tablet [facility] benazepriL 10 mg tablet 2022-0 01-07 14:36: 57 Yes 10mg Take 1 tablet by mouth in the morning. [facility] donepeziL 5 mg tablet 2022-0 01-07 00:00: 00 Yes 5mg Take 1 tablet by mouth in the morning. [facility] memantine 5 mg tablet 2022-0 01-07 00:00: 00 Yes 5mg Take 1 tablet by mouth in the morning. [facility] donepeziL 5 mg tablet 3-0 21 00:00: 00 Yes 5mg Take 1 tablet by mouth in the morning. [facility] memantine 5 mg tablet 3-0 21 00:00: 00 Yes 5mg Take 1 tablet by mouth in the morning. [facility] donepeziL 5 mg tablet 3-0 21 00:00: 00 Yes 5mg Take 1 tablet by mouth in the morning. [facility] memantine 5 mg tablet 3-0 21 00:00: 00 Yes 5mg Take 1 tablet by mouth in the morning. [facility] donepeziL 5 mg tablet 3-0 21 00:00: 00 Yes 5mg Take 1 tablet by mouth in the morning. [facility] memantine 5 mg tablet 3-0 21 00:00: 00 Yes 5mg Take 1 tablet by mouth in the morning. [facility] donepeziL 5 mg tablet 3-0 21 00:00: 00 Yes 5mg Take 1 tablet by mouth in the morning. [facility] memantine 5 mg tablet 3-0 4-21 00:00: 00 Yes 5mg Take 1 tablet by mouth in the morning. [facility] donepeziL 5 mg tablet 2023-0 4-21 00:00: 00 Yes 5mg Take 1 tablet by mouth in the morning. [facility] memantine 5 mg tablet 2023-0 4-21 00:00: 00 Yes 5mg Take 1 tablet by mouth in the morning. [facility] donepeziL 5 mg tablet 2023-0 4-21 00:00: 00 Yes 5mg Take 1 tablet by mouth in the morning. [facility] memantine 5 mg tablet 2023-0 4-21 00:00: 00 Yes 5mg Take 1 tablet by mouth in the morning. [facility] donepeziL 5 mg tablet 3-0 4-21 00:00: 00 Yes 5mg Take 1 tablet by mouth in the morning. [facility] memantine 5 mg tablet 2023-0 4-21 00:00: 00 Yes 5mg Take 1 tablet by mouth in the morning. [facility] donepeziL 5 mg tablet 2023-0 4-21 00:00: 00 Yes 5mg Take 1 tablet by mouth in the morning. [facility] memantine 5 mg tablet 2023-0 4-21 00:00: 00 Yes 5mg Take 1 tablet by mouth in the morning. [facility] donepeziL 5 mg tablet 2023-0 4-21 00:00: 00 Yes 5mg Take 1 tablet by mouth in the morning. [facility] memantine 5 mg tablet 2023-0 4-21 00:00: 00 Yes 5mg Take 1 tablet by mouth in the morning. [facility] donepeziL 5 mg tablet 2023-0 4-21 00:00: 00 Yes 5mg Take 1 tablet by mouth in the morning. [facility] memantine 5 mg tablet 2023-0 4-21 00:00: 00 Yes 5mg Take 1 tablet by mouth in the morning. [facility] donepeziL 5 mg tablet 2023-0 4-21 00:00: 00 Yes 5mg Take 1 tablet by mouth in the morning. [facility] memantine 5 mg tablet 2023-0 4-21 00:00: 00 Yes 5mg Take 1 tablet by mouth in the morning. [facility] donepeziL 5 mg tablet 2023-0 4-21 00:00: 00 Yes 5mg Take 1 tablet by mouth in the morning. [facility] memantine 5 mg tablet 2023-0 4-21 00:00: 00 Yes 5mg Take 1 tablet by mouth in the morning. [facility] donepeziL 5 mg tablet 2023-0 4-21 00:00: 00 Yes 5mg Take 1 tablet by mouth in the morning. [facility] memantine 5 mg tablet 3-0 4-21 00:00: 00 Yes 5mg Take 1 tablet by mouth in the morning. [facility] donepeziL 5 mg tablet 3-0 4-21 00:00: 00 Yes 5mg Take 1 tablet by mouth in the morning. [facility] memantine 5 mg tablet 2023-0 4-21 00:00: 00 Yes 5mg Take 1 tablet by mouth in the morning. [facility] donepeziL 5 mg tablet 2023-0 4-21 00:00: 00 Yes 5mg Take 1 tablet by mouth in the morning. [facility] memantine 5 mg tablet 3-0 4-21 00:00: 00 Yes 5mg Take 1 tablet by mouth in the morning. [facility] donepeziL 5 mg tablet 3-0 4-21 00:00: 00 Yes 5mg Take 1 tablet by mouth in the morning. [facility] memantine 5 mg tablet 2023-0 4-21 00:00: 00 Yes 5mg Take 1 tablet by mouth in the morning. [facility] donepeziL 5 mg tablet 2023-0 4-21 00:00: 00 Yes 5mg Take 1 tablet by mouth in the morning. [facility] memantine 5 mg tablet 2023-0 4-21 00:00: 00 Yes 5mg Take 1 tablet by mouth in the morning. [facility] donepeziL 5 mg tablet 2023-0 4-21 00:00: 00 Yes 5mg Take 1 tablet by mouth in the morning. [facility] memantine 5 mg tablet 2023-0 4-21 00:00: 00 Yes 5mg Take 1 tablet by mouth in the morning. [facility] donepeziL 5 mg tablet 2023-0 4-21 00:00: 00 Yes 5mg Take 1 tablet by mouth in the morning. [facility] memantine 5 mg tablet 2023-0 4-21 00:00: 00 Yes 5mg Take 1 tablet by mouth in the morning. [facility] donepeziL 5 mg tablet 2023-0 4-21 00:00: 00 Yes 5mg Take 1 tablet by mouth in the morning. [facility] memantine 5 mg tablet 3-0 4-21 00:00: 00 Yes 5mg Take 1 tablet by mouth in the morning. [facility] donepeziL 5 mg tablet 2023-0 4-21 00:00: 00 Yes 5mg Take 1 tablet by mouth in the morning. [facility] memantine 5 mg tablet 2023-0 4-21 00:00: 00 Yes 5mg Take 1 tablet by mouth in the morning. [facility] donepeziL 5 mg tablet 2023-0 4-21 00:00: 00 Yes 5mg Take 1 tablet by mouth in the morning. [facility] memantine 5 mg tablet 3-0 4-21 00:00: 00 Yes 5mg Take 1 tablet by mouth in the morning. [facility] donepeziL 5 mg tablet 2023-0 4-21 00:00: 00 Yes 5mg Take 1 tablet by mouth in the morning. [facility] memantine 5 mg tablet 2023-0 4-21 00:00: 00 Yes 5mg Take 1 tablet by mouth in the morning. [facility] donepeziL 5 mg tablet 2023-0 4-21 00:00: 00 Yes 5mg Take 1 tablet by mouth in the morning. [facility] memantine 5 mg tablet 2023-0 4-21 00:00: 00 Yes 5mg Take 1 tablet by mouth in the morning. [facility] donepeziL 5 mg tablet 2023-0 4-21 00:00: 00 Yes 5mg Take 1 tablet by mouth in the morning. [facility] memantine 5 mg tablet 3-0 4-21 00:00: 00 Yes 5mg Take 1 tablet by mouth in the morning. [facility] donepeziL 5 mg tablet 3-0 4-21 00:00: 00 Yes 5mg Take 1 tablet by mouth in the morning. [facility] memantine 5 mg tablet 3-0 4-21 00:00: 00 Yes 5mg Take 1 tablet by mouth in the morning. [facility] donepeziL 5 mg tablet 3-0 4-21 00:00: 00 03-01 00:00 :00 No 5mg Take 1 tablet by mouth in the morning. [facility] memantine 5 mg tablet 3-0 4-21 00:00: 00 03-01 00:00 :00 No 5mg Take 1 tablet by mouth in the morning. [facility] donepeziL 5 mg tablet 3-0 4-21 00:00: 00 03-01 00:00 :00 No 5mg Take 1 tablet by mouth in the morning. [facility] memantine 5 mg tablet 2022-0 4-21 00:00: 00 03-01 00:00 :00 No 5mg Take 1 tablet by mouth in the morning. [facility] tamsulosin 0.4 mg 24 hr capsule 3-0 3-27 00:00: 00 01-13 04:59 :00 No [id number] .4mg Take 1 capsule by mouth in the morning for 30 days. [facility] tamsulosin 0.4 mg 24 hr capsule 3-0 3-27 00:00: 00 01-13 04:59 :00 No [id number] .4mg Take 1 capsule by mouth in the morning for 30 days. [facility] tamsulosin 0.4 mg 24 hr capsule 3-0 3-27 00:00: 00 01-13 04:59 :00 No [id number] .4mg Take 1 capsule by mouth in the morning for 30 days. [facility] tamsulosin 0.4 mg 24 hr capsule 12-13 00:00: 00 01-13 04:59 :00 No [id number] .4mg Take 1 capsule by mouth in the morning for 30 days. [facility] tamsulosin 0.4 mg 24 hr capsule 12-13 00:00: 00 01-13 04:59 :00 No [id number] .4mg Take 1 capsule by mouth in the morning for 30 days. [facility] tamsulosin 0.4 mg 24 hr capsule 12-13 00:00: 00 01-13 04:59 :00 No [id number] .4mg Take 1 capsule by mouth in the morning for 30 days. [facility] donepeziL (ARICEPT) tablet 5 mg 12-12 17:30: 00 Yes 5mg 5 mg, Oral, DAILY, First dose on 12/12/22 at 1230, Until Discontinu ed, Routine [facility] memantine (NAMENDA) tablet 5 mg 12-12 17:30: 00 Yes 5mg 5 mg, Oral, DAILY, First dose on 12/12/22 at 1230, Until Discontinu ed, Routine
committee member approving Restricted medication : TRAVIS ZENG [facility] busPIRone 10 mg tablet 12-12 14:37: 13 Yes 10mg Take 1 tablet by mouth in the morning and 1 tablet in the evening. [facility] rivaroxaban (XARELTO) 15 mg tablet 12-12 14:37: 13 Yes 15mg Take 1 tablet by mouth in the morning. [facility] aspirin 81 mg chewable tablet 12-12 14:37: 13 Yes 81mg Take 81 mg by mouth in the morning. tablet [facility] busPIRone 10 mg tablet 12-12 14:37: 13 Yes 10mg Take 1 tablet by mouth in the morning and 1 tablet in the evening. [facility] rivaroxaban (XARELTO) 15 mg tablet 12-12 14:37: 13 Yes 15mg Take 1 tablet by mouth in the morning. [facility] busPIRone 10 mg tablet 12-12 14:37: 13 Yes 10mg Take 1 tablet by mouth in the morning and 1 tablet in the evening. [facility] rivaroxaban (XARELTO) 15 mg tablet 12-12 14:37: 13 Yes 15mg Take 1 tablet by mouth in the morning. [facility] aspirin 81 mg chewable tablet 12-12 14:37: 13 Yes 81mg Take 81 mg by mouth in the morning. tablet [facility] busPIRone 10 mg tablet 12-12 14:37: 13 Yes 10mg Take 1 tablet by mouth in the morning and 1 tablet in the evening. [facility] rivaroxaban (XARELTO) 15 mg tablet 12-12 14:37: 13 Yes 15mg Take 1 tablet by mouth in the morning. [facility] aspirin 81 mg chewable tablet 12-12 14:37: 13 Yes 81mg Take 81 mg by mouth in the morning. tablet [facility] tamsulosin (FLOMAX) capsule 0.4 mg 12-12 14:00: 00 Yes .4mg 0.4 mg, Oral, DAILY, First dose on 12/12/22 at 0900, Until Discontinu ed, Routine [facility] aspirin EC tablet 81 mg 12-12 14:00: 00 Yes 81mg 81 mg, Oral, DAILY, First dose on 12/12/22 at 0900, Until Discontinu ed, [facility] isolone sod succ (SOLU-MEDRO L) injection 40 mg 12-12 14:00: 00 Yes 40mg 40 mg, Intravenou s, DAILY, First dose (after last modificati on) on 12/12/22 at 0900, Until Discontinu ed, [facility] carved[facility]L 25 mg tablet 12-12 11:47: 13 12-12 00:00 :00 No 25mg Take 1 tablet by mouth in the morning and 1 tablet in the evening. Take with meals. [facility] busPIRone 30 mg tablet 12-12 11:47: 13 12-12 00:00 :00 No 30mg Take 1 tablet by mouth in the morning and 1 tablet in the evening. [facility] KCL 20 mEq tablet 12-12 11:47: 13 12-12 00:00 :00 No Take by mouth 2 (two) times daily. [facility] benazepriL 10 mg tablet 12-12 11:47: 13 12-12 00:00 :00 No 10mg Take 1 tablet by mouth in the morning. [facility] hydroCHLORO thiazide 25 mg tablet 12-12 11:47: 13 12-12 00:00 :00 No 25mg Take 1 tablet by mouth in the morning. [facility] melatonin (MELATIN) tablet 6 mg 12-12 02:00: 00 Yes 6mg 6 mg, Oral, QHS, First dose on 12/11/22 at 2100, Until Discontinu ed, Routine [facility] atorvastati n (LIPITOR) tablet 40 mg 12-12 02:00: 00 Yes 40mg 40 mg, Oral, QHS, First dose on 12/11/22 at 2100, Until Discontinu ed, Routine [facility] carvediloL 3.125 mg tablet 12-12 00:00: 00 01-12 04:59 :00 No [id number] 3.125mg Take 1 tablet by mouth in the morning and 1 tablet in the evening. Take with meals. Do all this for 30 days. [facility] atorvastati n 40 mg tablet 12-12 00:00: 00 01-12 04:59 :00 No [id number] 40mg Take 1 tablet by mouth at bedtime for 30 days. [facility] donepeziL 5 mg tablet 12-12 00:00: 00 01-12 04:59 :00 No [id number] 5mg Take 1 tablet by mouth in the morning for 30 days. [facility] memantine 5 mg tablet 2022-0 3- 00:00: 00 01-12 04:59 :00 No [id number] 5mg Take 1 tablet by mouth in the morning for 30 days. [facility] carvediloL 3.125 mg tablet 2022-0 3 00:00: 00 01-12 04:59 :00 No [id number] 3.125mg Take 1 tablet by mouth in the morning and 1 tablet in the evening. Take with meals. Do all this for 30 days. [facility] atorvastati n 40 mg tablet 2022-0 12-12 00:00: 00 01-12 04:59 :00 No [id number] 40mg Take 1 tablet by mouth at bedtime for 30 days. [facility] donepeziL 5 mg tablet 2022-0 12-12 00:00: 00 01-12 04:59 :00 No [id number] 5mg Take 1 tablet by mouth in the morning for 30 days. [facility] memantine 5 mg tablet 2022-0 12-12 00:00: 00 01-12 04:59 :00 No [id number] 5mg Take 1 tablet by mouth in the morning for 30 days. [facility] carvediloL 3.125 mg tablet 2022-0 12-12 00:00: 00 01-12 04:59 :00 No [id number] 3.125mg Take 1 tablet by mouth in the morning and 1 tablet in the evening. Take with meals. Do all this for 30 days. [facility] atorvastati n 40 mg tablet 2022-0 12-12 00:00: 00 01-12 04:59 :00 No [id number] 40mg Take 1 tablet by mouth at bedtime for 30 days. [facility] donepeziL 5 mg tablet 2022-0 3- 00:00: 00 01-12 04:59 :00 No [id number] 5mg Take 1 tablet by mouth in the morning for 30 days. [facility] memantine 5 mg tablet 12-12 00:00: 00 01-12 04:59 :00 No [id number] 5mg Take 1 tablet by mouth in the morning for 30 days. [facility] carvediloL 3.125 mg tablet 12-12 00:00: 00 01-12 04:59 :00 No [id number] 3.125mg Take 1 tablet by mouth in the morning and 1 tablet in the evening. Take with meals. Do all this for 30 days. [facility] atorvastati n 40 mg tablet 12-12 00:00: 00 01-12 04:59 :00 No [id number] 40mg Take 1 tablet by mouth at bedtime for 30 days. [facility] carvediloL 3.125 mg tablet 12-12 00:00: 00 01-12 04:59 :00 No [id number] 3.125mg Take 1 tablet by mouth in the morning and 1 tablet in the evening. Take with meals. Do all this for 30 days. [facility] atorvastati n 40 mg tablet 12-12 00:00: 00 01-12 04:59 :00 No [id number] 40mg Take 1 tablet by mouth at bedtime for 30 days. [facility] carvediloL 3.125 mg tablet 12-12 00:00: 00 01-12 04:59 :00 No [id number] 3.125mg Take 1 tablet by mouth in the morning and 1 tablet in the evening. Take with meals. Do all this for 30 days. [facility] atorvastati n 40 mg tablet 12-12 00:00: 00 01-12 04:59 :00 No [id number] 40mg Take 1 tablet by mouth at bedtime for 30 days. [facility] donepeziL 5 mg tablet 12-12 00:00: 00 01-07 00:00 :00 No [id number] 5mg Take 1 tablet by mouth in the morning for 30 days. [facility] memantine 5 mg tablet 12-12 00:00: 00 01-07 00:00 :00 No [id number] 5mg Take 1 tablet by mouth in the morning for 30 days. [facility] donepeziL 5 mg tablet 12-12 00:00: 00 01-07 00:00 :00 No [id number] 5mg Take 1 tablet by mouth in the morning for 30 days. [facility] memantine 5 mg tablet 12-12 00:00: 00 01-07 00:00 :00 No [id number] 5mg Take 1 tablet by mouth in the morning for 30 days. [facility] levalbutero l (XOPENEX) nebulizer solution 1.25 mg 12-11 17:00: 00 Yes 1.25mg 1.25 mg, Inhalation , QID, First dose (after last modificati on) on 12/11/22 at 1200, Until Discontinu ed, Routine [facility] rivaroxaban (XARELTO) tablet 15 mg 12-11 14:00: 00 Yes 15mg 15 mg, Oral, DAILY, First dose on 12/11/22 at 0900, Until Discontinu ed, Routine [facility] nicotine (NICODERM) 21 mg/24 hr patch 1 Patch 12-11 13:45: 00 Yes 1{patch } 1 Patch, Topical, Administer over 24 Hours, Q24H, First dose on 12/11/22 at 0845, Until Discontinu ed, Routine [facility] ipratropium (ATROVENT) 0.02 % nebulizer solution 0.5 mg 12-11 13:00: 00 Yes .5mg 0.5 mg, Inhalation , QID, First dose on 12/11/22 at 0800, Until Discontinu ed [facility] carvediloL (COREG) tablet 3.125 mg 12-11 13:00: 00 Yes 3.125mg 3.125 mg, Oral, BID MEALS, First dose on 12/11/22 at 0800, Until Discontinu ed, Routine [facility] busPIRone (BUSPAR) tablet 10 mg 12-11 13:00: 00 Yes 10mg 10 mg, Oral, BID, First dose on Tue12/11/22 at 0800, Until Discontinu ed, Routine [facility] methylpredn isolone sod succ (SOLU-MEDRO L) injection 125 mg 12-11 05:00: 00 12-11 12:35 :32 No 125mg 125 mg, Intravenou s, Q6H, First dose on Tue12/11/22 at 0000, Until Discontinu ed, Routine [facility] NaCl 0.9% (NS) IV infusion 1,000 mL 12-11 03:30: 00 12-11 14:48 :38 No 1000mL at 100 mL/hr, IV Infusion, CONTINUOUS , Starting on Tue12/10/22 at 2230, Until Tue12/11/22 at 0948, Routine [facility] albuterol (VENTOLIN) inhaler 2 Puff 12-11 03:17: 09 Yes 2{puff} 2 Puff, Inhalation , Q4HPRN, Starting on Tue12/10/22 at 2217, Until Discontinu ed, Routine, Wheezing, Shortness of Breath [facility] ondansetron (ZOFRAN (PF)) injection 4 mg 12-11 03:05: 14 Yes 4mg 4 mg, Slow IV Push, Q6HPRN, Starting on Tue12/10/22 at 2205, Until Discontinu ed, Routine, Nausea and Vomiting (N/V) [facility] HYDROcodone -acetaminop hen (NORCO) 10-325 mg tablet 1 tablet 12-11 03:05: 00 Yes 1{tbl} 1 tablet, Oral, Q6HPRN, Starting on Tue12/10/22 at 2205, Until Discontinu ed, Routine, Pain (scale 7-10) [facility] HYDROcodone -acetaminop hen (NORCO 5) 5-325 mg tablet 1 tablet 12-11 03:04: 56 12-13 03:03 :56 No 1{tbl} 1 tablet, Oral, Q6HPRN, Starting on Tue12/10/22 at 2204, Until 12/12/22 at 2203, Routine, Pain (scale 4-6) [facility] acetaminoph en (TYLENOL) tablet 650 mg 12-11 03:04: 50 Yes 650mg 650 mg, Oral, Q6HPRN, Starting on Tue12/10/22 at 2204, Until Discontinu ed, Routine, Pain (scale 1-3) [facility] levalbutero l (XOPENEX) nebulizer solution 1.25 mg 12-11 01:00: 00 12-11 15:57 :00 No 1.25mg 1.25 mg, Inhalation , TID, First dose on Tue12/10/22 at 2000, Until Discontinu ed, Routine [facility] NaCl 0.9% (NS) bolus infusion 1,000 mL 12-11 00:15: 00 12-11 03:18 :00 No 1000mL at 999 mL/hr, 1,000 mL, IV Infusion, ONCE, 1 dose, On Tue12/10/22 at 1915, STAT [facility] ipratropium (ATROVENT) 0.02 % nebulizer solution 0.5 mg 12-10 23:48: 58 Yes .5mg 0.5 mg, Inhalation , Q4HPRN, Starting on Tue12/10/22 at 1848, Until Discontinu ed, Routine, Wheezing, Shortness of Breath [facility] NaCl 0.9% (NS) bolus infusion 500 mL 12-04 16:15: 00 12-04 15:41 :58 No 500mL at 999 mL/hr, 500 mL, IV Piggyback, ONCE, 1 dose, On Tue12/04/22 at 1115, STAT [facility] carvediloL 3.125 mg tablet 12-04 12:44: 03 Yes 3.125mg Take 1 tablet by mouth in the morning and 1 tablet in the evening. Take with meals. [facility] busPIRone 10 mg tablet 12-04 12:44: 03 Yes 10mg Take 1 tablet by mouth in the morning and 1 tablet in the evening. [facility] busPIRone 30 mg tablet 3-0 3-18 12:44: 03 Yes 30mg Take 1 tablet by mouth in the morning and 1 tablet in the evening. [facility] KCL 20 mEq tablet 3-0 3-18 12:44: 03 Yes Take by mouth 2 (two) times daily. [facility] benazepriL 10 mg tablet 3-0 3-18 12:44: 03 Yes 10mg Take 1 tablet by mouth in the morning. [facility] rivaroxaban (XARELTO) 15 mg tablet 3-0 -18 12:44: 03 Yes 15mg Take 1 tablet by mouth in the morning. [facility] carvediloL 3.125 mg tablet 3-0 3-18 12:44: 03 Yes 3.125mg Take 1 tablet by mouth in the morning and 1 tablet in the evening. Take with meals. [facility] busPIRone 10 mg tablet 3-0 -18 12:44: 03 Yes 10mg Take 1 tablet by mouth in the morning and 1 tablet in the evening. [facility] busPIRone 30 mg tablet 3-0 18 12:44: 03 Yes 30mg Take 1 tablet by mouth in the morning and 1 tablet in the evening. [facility] KCL 20 mEq tablet 3-0 18 12:44: 03 Yes Take by mouth 2 (two) times daily. [facility] benazepriL 10 mg tablet 3-0 -18 12:44: 03 Yes 10mg Take 1 tablet by mouth in the morning. [facility] rivaroxaban (XARELTO) 15 mg tablet 3-0 3-18 12:44: 03 Yes 15mg Take 1 tablet by mouth in the morning. [facility] carvediloL 3.125 mg tablet 3-0 3-18 12:44: 03 Yes 3.125mg Take 1 tablet by mouth in the morning and 1 tablet in the evening. Take with meals. [facility] busPIRone 10 mg tablet 2023-0 3-18 12:44: 03 Yes 10mg Take 1 tablet by mouth in the morning and 1 tablet in the evening. [facility] busPIRone 30 mg tablet 12-04 12:44: 03 Yes 30mg Take 1 tablet by mouth in the morning and 1 tablet in the evening. [facility] KCL 20 mEq tablet 12-04 12:44: 03 Yes Take by mouth 2 (two) times daily. [facility] benazepriL 10 mg tablet 12-04 12:44: 03 Yes 10mg Take 1 tablet by mouth in the morning. [facility] rivaroxaban (XARELTO) 15 mg tablet 12-04 12:44: 03 Yes 15mg Take 1 tablet by mouth in the morning. [facility] carvediloL 3.125 mg tablet 12-04 12:44: 03 Yes 3.125mg Take 1 tablet by mouth in the morning and 1 tablet in the evening. Take with meals. [facility] busPIRone 10 mg tablet 12-04 12:44: 03 Yes 10mg Take 1 tablet by mouth in the morning and 1 tablet in the evening. [facility] busPIRone 30 mg tablet 12-04 12:44: 03 Yes 30mg Take 1 tablet by mouth in the morning and 1 tablet in the evening. [facility] KCL 20 mEq tablet 12-04 12:44: 03 Yes Take by mouth 2 (two) times daily. [facility] benazepriL 10 mg tablet 12-04 12:44: 03 Yes 10mg Take 1 tablet by mouth in the morning. [facility] rivaroxaban (XARELTO) 15 mg tablet 12-04 12:44: 03 Yes 15mg Take 1 tablet by mouth in the morning. [facility] albuterol 90 mcg/actuati on inhaler 12-04 00:00: 00 Yes [id number] 2{puff} Inhale 2 Puffs every 6 (six) hours as needed for Wheezing or Shortness of Breath. [facility] albuterol 90 mcg/actuati on inhaler 318 00:00: 00 Yes [id number] 2{puff} Inhale 2 Puffs every 6 (six) hours as needed for Wheezing or Shortness of Breath. [facility] albuterol 90 mcg/actuati on inhaler 3 00:00: 00 Yes [id number] 2{puff} Inhale 2 Puffs every 6 (six) hours as needed for Wheezing or Shortness of Breath. [facility] albuterol 90 mcg/actuati on inhaler 3 00:00: 00 Yes [id number] 2{puff} Inhale 2 Puffs every 6 (six) hours as needed for Wheezing or Shortness of Breath. [facility] albuterol 90 mcg/actuati on inhaler 3 00:00: 00 Yes [id number] 2{puff} Inhale 2 Puffs every 6 (six) hours as needed for Wheezing or Shortness of Breath. [facility] albuterol 90 mcg/actuati on inhaler 3 00:00: 00 Yes [id number] 2{puff} Inhale 2 Puffs every 6 (six) hours as needed for Wheezing or Shortness of Breath. [facility] albuterol 90 mcg/actuati on inhaler 3 00:00: 00 Yes [id number] 2{puff} Inhale 2 Puffs every 6 (six) hours as needed for Wheezing or Shortness of Breath. [facility] albuterol 90 mcg/actuati on inhaler 318 00:00: 00 Yes [id number] 2{puff} Inhale 2 Puffs every 6 (six) hours as needed for Wheezing or Shortness of Breath. [facility] albuterol 90 mcg/actuati on inhaler 318 00:00: 00 Yes [id number] 2{puff} Inhale 2 Puffs every 6 (six) hours as needed for Wheezing or Shortness of Breath. [facility] albuterol 90 mcg/actuati on inhaler 318 00:00: 00 Yes [id number] 2{puff} Inhale 2 Puffs every 6 (six) hours as needed for Wheezing or Shortness of Breath. [facility] albuterol 90 mcg/actuati on inhaler 318 00:00: 00 Yes [id number] 2{puff} Inhale 2 Puffs every 6 (six) hours as needed for Wheezing or Shortness of Breath. [facility] albuterol 90 mcg/actuati on inhaler 18 00:00: 00 Yes [id number] 2{puff} Inhale 2 Puffs every 6 (six) hours as needed for Wheezing or Shortness of Breath. [facility] albuterol 90 mcg/actuati on inhaler 18 00:00: 00 01-19 00:00 :00 No [id number] 2{puff} Inhale 2 Puffs every 6 (six) hours as needed for Wheezing or Shortness of Breath. [facility] tiotropium 18 mcg inhalation 0 318 00:00: 00 01-04 04:59 :00 No [id number] 18ug Inhale 1 capsule in the morning for 30 days. [facility] tiotropium 18 mcg inhalation 2022-0 318 00:00: 00 01-04 04:59 :00 No [id number] 18ug Inhale 1 capsule in the morning for 30 days. [facility] tiotropium 18 mcg inhalation 2022-0 3-18 00:00: 00 01-04 04:59 :00 No [id number] 18ug Inhale 1 capsule in the morning for 30 days. [facility] tiotropium 18 mcg inhalation 2022-0 3-18 00:00: 00 01-04 04:59 :00 No [id number] 18ug Inhale 1 capsule in the morning for 30 days. [facility] tiotropium 18 mcg inhalation 2022-0 3-18 00:00: 00 01-04 04:59 :00 No [id number] 18ug Inhale 1 capsule in the morning for 30 days. [facility] tiotropium 18 mcg inhalation 2022-0 3-18 00:00: 00 01-04 04:59 :00 No [id number] 18ug Inhale 1 capsule in the morning for 30 days. [facility] tiotropium 18 mcg inhalation 2022-0 3-18 00:00: 00 01-04 04:59 :00 No [id number] 18ug Inhale 1 capsule in the morning for 30 days. [facility] tiotropium 18 mcg inhalation 2022-0 3-18 00:00: 00 01-04 04:59 :00 No [id number] 18ug Inhale 1 capsule in the morning for 30 days. [facility] doxycycline hyclate 100 mg capsule 18 00:00: 00 12-10 04:59 :00 No [id number] 100mg Take 1 capsule by mouth every 12 (twelve) hours for 5 days. [facility] predniSONE 20 mg tablet 18 00:00: 00 12-10 04:59 :00 No [id number] 40mg Take 2 tablets by mouth in the morning for 5 days. [facility] doxycycline hyclate 100 mg capsule 18 00:00: 00 12-10 04:59 :00 No [id number] 100mg Take 1 capsule by mouth every 12 (twelve) hours for 5 days. [facility] predniSONE 20 mg tablet 18 00:00: 00 12-10 04:59 :00 No [id number] 40mg Take 2 tablets by mouth in the morning for 5 days. [facility] rivaroxaban (XARELTO) tablet 15 mg 12-03 17:15: 00 Yes 15mg 15 mg, Oral, DAILY, First dose (after last modificati on) on Tue12/03/22 at 1215, Until Discontinu ed, Routine [facility] enoxaparin (LOVENOX) injection 40 mg 16 22:00: 00 12-03 16:06 :59 No 40mg 40 mg, Subcutaneo us, DAILY, First dose on Tue12/02/22 at 1700, Until Discontinu ed, Routine [facility] methylPREDN ISolone sod succ (SOLU-MEDRO L (PF)) injection 40 mg 12-02 19:00: 00 Yes 40mg 40 mg, Intravenou s, Q8H, First dose on Tue12/02/22 at 1400, Until Discontinu ed, 1 mL [facility] codeine-gua ifenesin (ROBITUSSIN AC) 10-100 mg/5 mL oral solution 5 mL 12-02 16:25: 07 Yes 5mL 5 mL, Oral, Q6HPRN, Starting on Tue12/02/22 at 1125, Until Discontinu ed, Routine, Cough [facility] levalbutero l (XOPENEX) nebulizer solution 1.25 mg 12-02 13:00: 00 Yes 1.25mg 1.25 mg, Inhalation , Q4H, First dose on Tue12/02/22 at 0800, Until Discontinu ed, Routine [facility] ipratropium (ATROVENT) 0.02 % nebulizer solution 0.5 mg 12-02 13:00: 00 Yes .5mg 0.5 mg, Inhalation , Q4H, First dose on Tue12/02/22 at 0800, Until Discontinu ed, Routine [facility] doxycycline hyclate (Vibramycin ) capsule 100 mg 12-02 11:45: 00 12-07 11:44 :00 No 100mg 100 mg, Oral, Q12H ABX, 10 doses, First dose on Tue12/02/22 at 0645, Last dose on Tue12/06/22 at 1845, MICHAEL
Re ason for Anti-Infec tive: Empiric Therapy for Suspected Infection< br>Empiric Therapy Site: Respirator y
Durat ion of therapy: 5 days [facility] NaCl 0.9% (NS) IV infusion 1,000 mL 12-02 11:45: 00 12-02 14:24 :54 No 1000mL at 75 mL/hr, IV Infusion, CONTINUOUS , Starting on Tue12/02/22 at 0645, Until Tue12/02/22 at 0924, Routine [facility] famotidine (PEPCID AC) tablet 20 mg 12-02 11:30: 03 Yes 20mg 20 mg, Oral, BIDPRN, Starting on Tue12/02/22 at 0630, Until Discontinu ed, Routine, Indigestio n, Heartburn [facility] ondansetron (ZOFRAN (PF)) injection 4 mg 12-02 11:30: 03 Yes 4mg 4 mg, Slow IV Push, Q6HPRN, Starting on Tue12/02/22 at 0630, Until Discontinu ed, Routine, Nausea and Vomiting (N/V) [facility] bisacodyL (DULCOLAX) tablet 10 mg 12-02 11:30: 03 Yes 10mg 10 mg, Oral, QDAILYPRN, Starting on Tue12/02/22 at 0630, Until Discontinu ed, Routine, Constipati on [facility] acetaminoph en (TYLENOL) tablet 650 mg 12-02 11:30: 03 Yes 650mg 650 mg, Oral, Q6HPRN, Starting on Tue12/02/22 at 0630, Until Discontinu ed, Routine, Pain (scale 1-3) [facility] methylpredn isolone sod succ (SOLU-MEDRO L) injection 125 mg 12-02 06:15: 00 12-02 05:27 :00 No 125mg 125 mg, Intravenou s, ONCE, 1 dose, On Tue12/02/22 at 0115, 2 mL [facility] ipratropium -albuteroL (DUONEB) 0.5 mg-3 mg(2.5 mg base)/3 mL nebulizer solution 6 mL 12-02 06:15: 00 12-02 05:33 :00 No 6mL 6 mL, Inhalation , ONCE, 1 dose, On Tue12/02/22 at 0115, Routine [facility] levalbutero l (XOPENEX) nebulizer solution 0.63 mg 12-01 13:15: 00 12-01 12:38 :00 No .63mg 0.63 mg, Inhalation , ONCE, 1 dose, On Tue12/01/22 at 0815, Routine [facility] ipratropium (ATROVENT) 0.02 % nebulizer solution 0.5 mg 12-01 12:30: 00 12-01 12:38 :00 No .5mg 0.5 mg, Inhalation , ONCE, 1 dose, On Tue12/01/22 at 0730, MICHAEL [facility] levalbutero l (XOPENEX) nebulizer solution 1.25 mg 12-01 11:15: 00 12-01 10:38 :00 No 1.25mg 1.25 mg, Inhalation , ONCE, 1 dose, On Tue12/01/22 at 0615, Routine [facility] ipratropium (ATROVENT) 0.02 % nebulizer solution 0.5 mg 12-01 10:30: 00 12-01 10:38 :00 No .5mg 0.5 mg, Inhalation , ONCE, 1 dose, On Tue12/01/22 at 0530, [facility] methylPREDN ISolone sod succ (SOLU-MEDRO L (PF)) injection 40 mg 12-01 10:30: 00 12-01 10:35 :00 No 40mg 40 mg, Intravenou s, ONCE, 1 dose, On Tue12/01/22 at 0530, [facility] Nebulizer & Compressor For Neb Kami 12-01 00:00: 00 Yes [id number] Use as directed [facility] albuterol 90 mcg/actuati on inhaler 12-01 00:00: 00 Yes [id number] 2{puff} Inhale 2 Puffs every 4 (four) hours as needed for Wheezing or Shortness of Breath. [facility] Nebulizer & Compressor For Neb Kami 3-0 3-15 00:00: 00 Yes [id number] Use as directed [facility] albuterol 90 mcg/actuati on inhaler 2022-0 3-15 00:00: 00 Yes [id number] 2{puff} Inhale 2 Puffs every 4 (four) hours as needed for Wheezing or Shortness of Breath. [facility] Nebulizer & Compressor For Neb Kami 2022-0 3-15 00:00: 00 Yes [id number] Use as directed [facility] albuterol 90 mcg/actuati on inhaler 2022-0 3-15 00:00: 00 Yes [id number] 2{puff} Inhale 2 Puffs every 4 (four) hours as needed for Wheezing or Shortness of Breath. [facility] Nebulizer & Compressor For Neb Kami 2022-0 3-15 00:00: 00 Yes [id number] Use as directed [facility] Nebulizer & Compressor For Neb Kami 2022-0 3-15 00:00: 00 Yes [id number] Use as directed [facility] Nebulizer & Compressor For Neb Kami 2022-0 3-15 00:00: 00 Yes [id number] Use as directed [facility] Nebulizer & Compressor For Neb Kami 2022-0 3-15 00:00: 00 Yes [id number] Use as directed [facility] Nebulizer & Compressor For Neb Kami 2022-0 3-15 00:00: 00 Yes [id number] Use as directed [facility] Nebulizer & Compressor For Neb Kami 2022-0 3-15 00:00: 00 Yes [id number] Use as directed [facility] Nebulizer & Compressor For Neb Kami 2022-0 3-15 00:00: 00 Yes [id number] Use as directed [facility] Nebulizer & Compressor For Neb Kami 3-0 3-15 00:00: 00 Yes [id number] Use as directed [facility] Nebulizer & Compressor For Neb Kami 3-0 3-15 00:00: 00 Yes [id number] Use as directed [facility] Nebulizer & Compressor For Neb Kami 2022-0 3-15 00:00: 00 Yes [id number] Use as directed [facility] Nebulizer & Compressor For Neb Kami 2022-0 3-15 00:00: 00 Yes Use as directed [facility] Nebulizer & Compressor For Neb Kami 2022-0 3-15 00:00: 00 Yes [id number] Use as directed [facility] Nebulizer & Compressor For Neb Kami 2022-0 3-15 00:00: 00 Yes [id number] Use as directed [facility] Nebulizer & Compressor For Neb Kami 2022-0 3-15 00:00: 00 Yes [id number] Use as directed [facility] Nebulizer & Compressor For Neb Kami 2022-0 3-15 00:00: 00 Yes [id number] Use as directed [facility] Nebulizer & Compressor For Neb Kami 2022-0 3-15 00:00: 00 Yes [id number] Use as directed [facility] Nebulizer & Compressor For Neb Kami 2022-0 3-15 00:00: 00 Yes [id number] Use as directed [facility] Nebulizer & Compressor For Neb Kami 2022-0 3-15 00:00: 00 Yes [id number] Use as directed [facility] Nebulizer & Compressor For Neb Kami 2022-0 3-15 00:00: 00 Yes [id number] Use as directed [facility] Nebulizer & Compressor For Neb Kami 2022-0 3-15 00:00: 00 Yes [id number] Use as directed [facility] Nebulizer & Compressor For Neb Kami 2022-0 3-15 00:00: 00 Yes [id number] Use as directed [facility] Nebulizer & Compressor For Neb Kami 2022-0 3-15 00:00: 00 Yes [id number] Use as directed [facility] Nebulizer & Compressor For Neb Kami 2022-0 3-15 00:00: 00 Yes [id number] Use as directed [facility] Nebulizer & Compressor For Neb Kami 2022-0 3-15 00:00: 00 Yes [id number] Use as directed [facility] Nebulizer & Compressor For Neb Kami 2022-0 3-15 00:00: 00 Yes [id number] Use as directed [facility] Nebulizer & Compressor For Neb Kami 2022-0 3-15 00:00: 00 Yes [id number] Use as directed [facility] Nebulizer & Compressor For Neb Kami 2022-0 3-15 00:00: 00 Yes [id number] Use as directed [facility] Nebulizer & Compressor For Neb Kami 2022-0 3-15 00:00: 00 Yes [id number] Use as directed [facility] Nebulizer & Compressor For Neb Kami 2022-0 3-15 00:00: 00 Yes [id number] Use as directed [facility] Nebulizer & Compressor For Neb Kami 2022-0 3-15 00:00: 00 Yes [id number] Use as directed [facility] Nebulizer & Compressor For Neb Kami 2022-0 3-15 00:00: 00 Yes [id number] Use as directed [facility] Nebulizer & Compressor For Neb Kami 2022-0 3-15 00:00: 00 Yes [id number] Use as directed [facility] Nebulizer & Compressor For Neb Kami 2022-0 3-15 00:00: 00 Yes [id number] Use as directed [facility] Nebulizer & Compressor For Neb Kami 2022-0 3-15 00:00: 00 Yes [id number] Use as directed [facility] Nebulizer & Compressor For Neb Kami 3-0 3-15 00:00: 00 Yes [id number] Use as directed [facility] Nebulizer & Compressor For Neb Kami 3-0 3-15 00:00: 00 Yes [id number] Use as directed [facility] Nebulizer & Compressor For Neb Kami 3-0 3-15 00:00: 00 Yes [id number] Use as directed [facility] Nebulizer & Compressor For Neb Kami 2023-0 3-15 00:00: 00 Yes [id number] Use as directed [facility] Nebulizer & Compressor For Neb Kami 0 315 00:00: 00 Yes [id number] Use as directed [facility] Nebulizer & Compressor For Neb Kami 315 00:00: 00 Yes [id number] Use as directed [facility] Nebulizer & Compressor For Neb Kami 3-15 00:00: 00 Yes [id number] Use as directed [facility]/actuati on inhaler 315 00:00: 00 Yes [id number] 2{puff} Inhale 2 Puffs every 4 (four) hours as needed for Wheezing or Shortness of Breath. [facility] predniSONE 50 mg tablet 315 00:00: 00 Yes [id number] 50mg Take 1 tablet by mouth in the morning. [facility] Nebulizer & Compressor For Neb Kami 315 00:00: 00 Yes [id number] Use as directed [facility] albuterol 90 mcg/actuati on inhaler 315 00:00: 00 Yes [id number] 2{puff} Inhale 2 Puffs every 4 (four) hours as needed for Wheezing or Shortness of Breath. [facility] albuterol 90 mcg/actuati on inhaler 15 00:00: 00 12-12 00:00 :00 No [id number] 2{puff} Inhale 2 Puffs every 4 (four) hours as needed for Wheezing or Shortness of Breath. [facility] predniSONE 50 mg tablet 315 00:00: 00 12-04 00:00 :00 No [id number] 50mg Take 1 tablet by mouth in the morning. [facility] omeprazole 40 mg capsule 12 14:11: 21 11-28 00:00 :00 No 40mg Take 40 mg by mouth daily. [facility] mg [facility] 11-28 14:: 11-28 00:00 :00 No 25mg Take 25 mg by mouth 2 (two) times daily with meals. [facility] busPIRone 30 mg tablet 11-28 14:: 11-28 00:00 :00 No 30mg Take 30 mg by mouth 2 (two) times daily. [facility] benazepriL 10 mg tablet 11-28 14:: 11-28 00:00 :00 No 10mg Take 10 mg by mouth daily. [facility] hydroCHLORO thiazide 25 mg tablet 11-28 14:: 11-28 00:00 :00 No 25mg Take 25 mg by mouth daily. [facility] levalbutero l (XOPENEX) nebulizer solution 0.63 mg 11-28 13:00: 00 Yes .63mg 0.63 mg, Inhalation , TID, First dose (after last modificati on) on 11/28/22 at 0800, Until Discontinu ed, Routine [facility] iprat[facility]ium (ATROVENT) 0.02 % nebulizer solution 0.5 mg 11-27 20:00: 00 Yes .5mg 0.5 mg, Inhalation , TID, First dose (after last modificati on) on 11/27/22 at 1400, Until Discontinu ed, Routine [facility] nicotine (NICODERM) 21 mg/24 hr patch 1 Patch 11-27 17:30: 00 Yes 1{patch } 1 Patch, Topical, Administer over 24 Hours, Q24H, First dose on 11/27/22 at 1130, Until Discontinu ed, Routine [facility] busPIRone (BUSPAR) tablet 10 mg 11-27 16:15: 00 Yes 10mg 10 mg, Oral, TID, First dose on 11/27/22 at 1015, Until Discontinu ed, Routine [facility] chew[facility] 81 mg 11-27 16:15: 00 Yes 81mg 81 mg, Oral, DAILY, First dose on 11/27/22 at 1015, Until Discontinu ed, Routine [facility] foLIC acid (FOLATE) tablet 1 mg 11-27 15:00: 00 Yes 1mg 1 mg, Oral, DAILY, First dose on Tue11/27/22 at 0900, Until Discontinu ed, Routine [facility] rivaroxaban (XARELTO) tablet 20 mg 11-27 15:00: 00 Yes 20mg 20 mg, Oral, DAILY, First dose on 11/27/22 at 0900, Until Discontinu ed, Routine [facility] omeprazole (PRILOSEC) capsule 40 mg 11-27 15:00: 00 Yes 40mg 40 mg, Oral, DAILY, First dose on Tue11/27/22 at 0900, Until Discontinu ed [facility] predniSONE (DELTASONE) tablet 40 mg 11-27 15:00: 00 12-02 13:59 :00 No 40mg 40 mg, Oral, DAILY, 5 doses, First dose on Tue11/27/22 at 0900, Last dose on Tue12/01/22 at 0900, Routine [facility] carvediloL (COREG) tablet 25 mg 11-27 14:00: 00 Yes 25mg 25 mg, Oral, BID MEALS, First dose on Tue11/27/22 at 0800, Until Discontinu ed, Routine [facility] levalbutero l (XOPENEX) nebulizer solution 0.31 mg 11-27 14:00: 00 11-28 12:33 :58 No .31mg 0.31 mg, Inhalation , TID, First dose on Tue11/27/22 at 0800, Until Discontinu ed, Routine [facility] ipratropium (ATROVENT) 0.02 % nebulizer solution 0.5 mg 11-27 14:00: 00 11-27 18:48 :56 No .5mg 0.5 mg, Inhalation , QID, First dose on Tue11/27/22 at 0800, Until Discontinu ed, Routine [facility] thiamine (VITAMIN B1) tablet 100 mg 11-27 08:30: 00 Yes 100mg 100 mg, Oral, DAILY, First dose (after last modificati on) on Tue11/27/22 at 0230, Until Discontinu ed, Routine [facility] LORazepam (ATIVAN) injection 1 mg 11-27 08:16: 19 Yes 1mg 1 mg, Slow IV Push, Q4HPRN, Starting on Tue11/27/22 at 0216, Until Discontinu ed, Routine, Agitation, Seizures, withdrawl [facility] levalbutero l (XOPENEX) nebulizer solution 1.25 mg 11-19 14:00: 00 Yes 1.25mg 1.25 mg, Inhalation , TID, First dose on Tue11/19/22 at 0800, Until Discontinu ed, Routine [facility] ipratropium (ATROVENT) 0.02 % nebulizer solution 0.5 mg 11-19 09:30: 00 11-19 08:47 :00 No .5mg 0.5 mg, Inhalation , ONCE, 1 dose, On Tue11/19/22 at 0330, Routine [facility] levalbutero l (XOPENEX) nebulizer solution 1.25 mg 11-19 02:00: 00 11-19 01:21 :00 No 1.25mg 1.25 mg, Inhalation , ONCE, 1 dose, On Elizabeth 11/18/22 at 2000, Routine [facility] thiamine 100 mg tablet 224 00:00: 00 12-13 04:59 :00 No [id number] 100mg Take 1 tablet by mouth in the morning for 30 days. [facility] thiamine 100 mg tablet 0 2-24 00:00: 00 12-13 04:59 :00 No [id number] 100mg Take 1 tablet by mouth in the morning for 30 days. [facility] thiamine 100 mg tablet 0 2-24 00:00: 00 12-13 04:59 :00 No [id number] 100mg Take 1 tablet by mouth in the morning for 30 days. [facility] thiamine 100 mg tablet 0 224 00:00: 00 12-13 04:59 :00 No [id number] 100mg Take 1 tablet by mouth in the morning for 30 days. [facility] thiamine 100 mg tablet 0 24 00:00: 00 12-13 04:59 :00 No [id number] 100mg Take 1 tablet by mouth in the morning for 30 days. [facility] thiamine 100 mg tablet 0 24 00:00: 00 11-28 00:00 :00 No [id number] 100mg Take 1 tablet by mouth in the morning for 30 days. [facility] thiamine (VITAMIN B1) tablet 100 mg 11-11 15:00: 00 Yes 100mg 100 mg, Oral, DAILY, First dose on Tue11/11/22 at 0900, Until Discontinu ed, Routine [facility] omeprazole 40 mg capsule 11-11 13:41: 29 Yes 40mg Take 40 mg by mouth daily. [facility] carvediloL 25 mg tablet 11-11 13:41: 29 Yes 25mg Take 25 mg by mouth 2 (two) times daily with meals. [facility] busPIRone 30 mg tablet 11-11 13:41: 29 Yes 30mg Take 30 mg by mouth 2 (two) times daily. [facility] benazepriL 10 mg tablet 11-11 13:41: 29 Yes 10mg Take 10 mg by mouth daily. [facility] hydroCHLORO thiazide 25 mg tablet 11-11 13:41: 29 Yes 25mg Take 25 mg by mouth daily. [facility] omeprazole 40 mg capsule 11-11 13:41: 29 Yes 40mg Take 40 mg by mouth daily. [facility] carvediloL 25 mg tablet 11-11 13:41: 29 Yes 25mg Take 25 mg by mouth 2 (two) times daily with meals. [facility] busPIRone 30 mg tablet 11-11 13:41: 29 Yes 30mg Take 30 mg by mouth 2 (two) times daily. [facility] benazepriL 10 mg tablet 11-11 13:41: 29 Yes 10mg Take 10 mg by mouth daily. [facility] hydroCHLORO thiazide 25 mg tablet 11-11 13:41: 29 Yes 25mg Take 25 mg by mouth daily. [facility] omeprazole 40 mg capsule 11-11 13:41: 29 Yes 40mg Take 40 mg by mouth daily. [facility] carvediloL 25 mg tablet 11-11 13:41: 29 Yes 25mg Take 25 mg by mouth 2 (two) times daily with meals. [facility] busPIRone 30 mg tablet 11-11 13:41: 29 Yes 30mg Take 30 mg by mouth 2 (two) times daily. [facility] benazepriL 10 mg tablet 11-11 13:41: 29 Yes 10mg Take 10 mg by mouth daily. [facility] hydroCHLORO thiazide 25 mg tablet 11-11 13:41: 29 Yes 25mg Take 25 mg by mouth daily. [facility] omeprazole 40 mg capsule 11-11 13:41: 29 Yes 40mg Take 40 mg by mouth daily. [facility] carvediloL 25 mg tablet 11-11 13:41: 29 Yes 25mg Take 25 mg by mouth 2 (two) times daily with meals. [facility] busPIRone 30 mg tablet 11-11 13:41: 29 Yes 30mg Take 30 mg by mouth 2 (two) times daily. [facility] benazepriL 10 mg tablet 11-11 13:41: 29 Yes 10mg Take 10 mg by mouth daily. [facility] hydroCHLORO thiazide 25 mg tablet 11-11 13:41: 29 Yes 25mg Take 25 mg by mouth daily. [facility] omeprazole 40 mg capsule 11-11 13:41: 29 Yes 40mg Take 40 mg by mouth daily. [facility] carvediloL 25 mg tablet 11-11 13:41: 29 Yes 25mg Take 25 mg by mouth 2 (two) times daily with meals. [facility] busPIRone 30 mg tablet 11-11 13:41: 29 Yes 30mg Take 30 mg by mouth 2 (two) times daily. [facility] benazepriL 10 mg tablet 11-11 13:41: 29 Yes 10mg Take 10 mg by mouth daily. [facility] hydroCHLORO thiazide 25 mg tablet 11-11 13:41: 29 Yes 25mg Take 25 mg by mouth daily. [facility] foLIC acid (FOLATE) tablet 1 mg 11-11 00:15: 00 11-11 00:26 :00 No 1mg 1 mg, Oral, ONCE, 1 dose, On Tue11/10/22 at 1815, Routine [facility] benzocaine- menthoL lozenge 11-11 00:00: 00 Yes [id number] 1{lozen ge} Take 1 Lozenge by mouth every 4 (four) hours as needed for Sore throat. [facility] budesonide- formoteroL 80-4.5 mcg/actuati on inhaler 11-11 00:00: 00 Yes [id number] 2{puff} Inhale 2 Puffs in the morning and 2 Puffs in the evening. [facility] benzocaine- menthoL lozenge 11-11 00:00: 00 Yes [id number] 1{lozen ge} Take 1 Lozenge by mouth every 4 (four) hours as needed for Sore throat. [facility] budesonide- formoteroL 80-4.5 mcg/actuati on inhaler 11-11 00:00: 00 Yes [id number] 2{puff} Inhale 2 Puffs in the morning and 2 Puffs in the evening. [facility] benzocaine- menthoL lozenge 11-11 00:00: 00 Yes [id number] 1{lozen ge} Take 1 Lozenge by mouth every 4 (four) hours as needed for Sore throat. [facility] budesonide- formoteroL 80-4.5 mcg/actuati on inhaler 11-11 00:00: 00 Yes [id number] 2{puff} Inhale 2 Puffs in the morning and 2 Puffs in the evening. [facility] benzocaine- menthoL lozenge 11-11 00:00: 00 Yes [id number] 1{lozen ge} Take 1 Lozenge by mouth every 4 (four) hours as needed for Sore throat. [facility] budesonide- formoteroL 80-4.5 mcg/actuati on inhaler 11-11 00:00: 00 Yes [id number] 2{puff} Inhale 2 Puffs in the morning and 2 Puffs in the evening. [facility] benzocaine- menthoL lozenge 11-11 00:00: 00 Yes [id number] 1{lozen ge} Take 1 Lozenge by mouth every 4 (four) hours as needed for Sore throat. [facility] budesonide- formoteroL 80-4.5 mcg/actuati on inhaler 11-11 00:00: 00 Yes [id number] 2{puff} Inhale 2 Puffs in the morning and 2 Puffs in the evening. [facility] benzocaine- menthoL lozenge 11-11 00:00: 00 11-28 00:00 :00 No [id number] 1{lozen ge} Take 1 Lozenge by mouth every 4 (four) hours as needed for Sore throat. [facility] budesonide- formoteroL 80-4.5 mcg/actuati on inhaler 11-11 00:00: 00 11-28 00:00 :00 No [id number] 2{puff} Inhale 2 Puffs in the morning and 2 Puffs in the evening. [facility] sodium chloride 1 gram tablet 2022-0 11-11 00:00: 00 11-22 05:59 :00 No [id number] 1g Take 1 tablet by mouth in the morning and 1 tablet at noon and 1 tablet in the evening. Take with meals. Do all this for 10 days. [facility] sodium chloride 1 gram tablet 0 11-11 00:00: 00 11-22 05:59 :00 No [id number] 1g Take 1 tablet by mouth in the morning and 1 tablet at noon and 1 tablet in the evening. Take with meals. Do all this for 10 days. [facility] sodium chloride 1 gram tablet 11-11 00:00: 00 11-22 05:59 :00 No [id number] 1g Take 1 tablet by mouth in the morning and 1 tablet at noon and 1 tablet in the evening. Take with meals. Do all this for 10 days. [facility] sodium chloride 1 gram tablet 2022-0 11-11 00:00: 00 11-22 05:59 :00 No [id number] 1g Take 1 tablet by mouth in the morning and 1 tablet at noon and 1 tablet in the evening. Take with meals. Do all this for 10 days. [facility] levoFLOXaci n 750 mg tablet 11-11 00:00: 00 11-17 05:59 :00 No [id number] 750mg Take 1 tablet by mouth every 24 (twenty-fo ur) hours for 5 days. [facility] levoFLOXaci n 750 mg tablet 2022-11-11 00:00: 00 11-17 05:59 :00 No [id number] 750mg Take 1 tablet by mouth every 24 (twenty-fo ur) hours for 5 days. [facility] predniSONE 20 mg tablet 2022-0 11-11 00:00: 00 11-15 05:59 :00 No [id number] 40mg Take 2 tablets by mouth in the morning for 3 days. [facility] predniSONE 20 mg tablet 2022-0 11-11 00:00: 11-15 05:59 :00 No [id number] 40mg Take 2 tablets by mouth in the morning for 3 days. [facility] sodium chloride tablet 1 g 11-10 23:15: 00 Yes 1g 1 g, Oral, TID MEALS, First dose on Tue11/10/22 at 1715, Until Discontinu ed, Routine [facility] benzocaine- menthoL (CEPACOL SORE THROAT (JACINTO-MEN)) lozenge 1 Lozenge 11-10 20:49: 25 Yes 1{lozen ge} 1 Lozenge, Oral, Q4HPRN, Starting on Tue11/10/22 at 1449, Until Discontinu ed, Routine, Sore throat [facility] budesonide- formoteroL (SYMBICORT) 80-4.5 mcg/actuati on inhaler 2 Puff 11-10 17:30: 00 Yes 2{puff} 2 Puff, Inhalation , BID, First dose on Tue11/10/22 at 1130, Until Discontinu ed, Routine [facility] (PRILOSEC) capsule 40 mg 11-10 15:00: 00 Yes 40mg 40 mg, Oral, DAILY, First dose on Tue11/10/22 at 0900, Until Discontinu ed [facility] rivaroxaban (XARELTO) tablet 20 mg 11-10 15:00: 00 Yes 20mg 20 mg, Oral, DAILY, First dose on Tue11/10/22 at 0900, Until Discontinu ed, Routine [facility] aspirin chewable tablet 81 mg 11-10 15:00: 00 Yes 81mg 81 mg, Oral, DAILY, First dose on Tue11/10/22 at 0900, Until Discontinu ed, Routine [facility] methylPREDN ISolone sod succ (SOLU-MEDRO L (PF)) injection 40 mg 11-10 15:00: 00 11-14 14:59 :00 No 40mg 40 mg, Intravenou s, DAILY, 4 doses, First dose on Tue11/10/22 at 0900, Last dose on Tue11/13/22 at 0900, 1 mL [facility] NaCl 0.9% (NS) IV infusion 1,000 mL 11-10 09:00: 00 Yes 1000mL at 100 mL/hr, IV Infusion, CONTINUOUS , Starting on Tue11/10/22 at 0300, Until Discontinu ed, Routine [facility] levoFLOXaci n in D5W (LEVAQUIN) 750 mg/150 [...] Urine
D uration of therapy: 5 days [facility] busPIRone (BUSPAR) tablet 30 mg 11-10 02:00: 00 Yes 30mg 30 mg, Oral, BID, First dose on Tue11/09/22 at 2000, Until Discontinu ed, Routine [facility] carvediloL (COREG) tablet 25 mg 11-09 23:00: 00 Yes 25mg 25 mg, Oral, BID MEALS, First dose on Tue11/09/22 at 1700, Until Discontinu ed, Routine [facility] ipratropium (ATROVENT) 0.02 % nebulizer solution 0.5 mg 11-09 22:00: 00 Yes .5mg 0.5 mg, Inhalation , Q4H, First dose on Tue11/09/22 at 1600, Until Discontinu ed, Routine [facility] albuterol (PROVENTIL) 2.5 mg /3 mL (0.083 [...] 1 dose, On Tue11/09/22 at 1415, STAT [facility] ondansetron (ZOFRAN (PF)) injection 4 mg 11-09 20:04: 17 Yes 4mg 4 mg, Slow IV Push, Q6HPRN, Starting on Tue11/09/22 at 1404, Until Discontinu ed, Routine, Nausea and Vomiting (N/V) [facility] acetaminoph en (TYLENOL) tablet 650 mg 11-09 20:04: 07 Yes 650mg 650 mg, Oral, Q6HPRN, Starting on Tue11/09/22 at 1404, Until Discontinu ed, Routine, Pain (scale 1-3), Temp > 38 C [facility] albuterol (PROVENTIL) 2.5 mg /3 mL (0.083 %) nebulizer solution 5 mg 11-09 14:00: 00 11-09 14:05 :00 No 5mg 5 mg, Inhalation , ONCE, 1 dose, On Tue11/09/22 at 0800, STAT [facility] albuterol (PROVENTIL) 2.5 mg /3 mL (0.083 %) nebulizer solution 10 mg 11-09 11:00: 00 11-09 11:04 :00 No 10mg 10 mg, Inhalation , ONCE, 1 dose, On Tue11/09/22 at 0500, STAT [facility] ipratropium (ATROVENT) 0.02 % nebulizer solution 0.5 mg 11-09 09:00: 00 11-09 08:59 :00 No .5mg 0.5 mg, Inhalation , ONCE, 1 dose, On Tue11/09/22 at 0300, MICHAEL [facility] albuterol (PROVENTIL) 2.5 mg /3 mL (0.083 %) nebulizer solution 2.5 mg 11-09 09:00: 00 11-09 08:59 :00 No 2.5mg 2.5 mg, Inhalation , ONCE, 1 dose, On Tue11/09/22 at 0300, STAT [facility] magnesium sulfate in water 2 gram/50 mL (4 %) infusion 2 g 11-09 08:30: 00 11-09 08:22 :00 No 2g 2 g, IV Piggyback, Administer over 60 Minutes, ONCE, 1 dose, On Tue11/09/22 at 0230, Routine [facility] methylPREDN ISolone sodium succinate (SOLU-MEDRO L) injection 125 mg 11-09 07:45: 00 11-09 07:41 :00 No 125mg 125 mg, Intravenou s, ONCE, 1 dose, On Tue11/09/22 at 0145, MICHAEL [facility] ipratropium (ATROVENT) 0.02 % nebulizer solution 0.5 mg 11-09 07:45: 00 11-09 07:40 :00 No .5mg 0.5 mg, Inhalation , ONCE, 1 dose, On Tue11/09/22 at 0145, MICHAEL [facility] albuterol (PROVENTIL) 2.5 mg /3 mL (0.083 %) nebulizer solution 2.5 mg 11-09 07:45: 00 11-09 07:40 :00 No 2.5mg 2.5 mg, Inhalation , ONCE, 1 dose, On Tue11/09/22 at 0145, STAT [facility] cephALEXin (KEFLEX) 500 mg capsule 05-22 00:00: 00 Yes [id number] 500mg Take 1 capsule by mouth 4 (four) times daily. [facility] cephALEXin (KEFLEX) 500 mg capsule 05-22 00:00: 00 Yes [id number] 500mg Take 1 capsule by mouth 4 (four) times daily. [facility] cephALEXin (KEFLEX) 500 mg capsule 05-22 00:00: 00 11-11 00:00 :00 No [id number] 500mg Take 1 capsule by mouth 4 (four) times daily. [facility] cefTRIAXone (ROCEPHIN) 1,000 mg in NaCl 0.9% (NS) 50 mL MINI-BAG 12-12 19:00: 00 12-12 18:23 :00 No 1000mg 1,000 mg, IV Piggyback, ONCE, 1 dose, Tue12/12/20 at 1400, 50 mL
Reas on for Anti-Infec tive: Empiric Therapy for Suspected Infection< br>Empiric Therapy Site: Urine
D uration of therapy: 72 hours [facility] carvediloL 25 mg tablet 12-12 18:38: 04 Yes 25mg Take 25 mg by mouth 2 (two) times daily with meals. [facility] busPIRone 30 mg tablet 12-12 18:38: 04 Yes 30mg Take 30 mg by mouth 2 (two) times daily. [facility] benazepriL 10 mg tablet 12-12 18:38: 04 Yes 10mg Take 10 mg by mouth daily. [facility] hydroCHLORO thiazide 25 mg tablet 12-12 18:38: 04 Yes 25mg Take 25 mg by mouth daily. [facility] carvediloL 25 mg tablet 12-12 18:38: 04 Yes 25mg Take 25 mg by mouth 2 (two) times daily with meals. [facility] busPIRone 30 mg tablet 12-12 18:38: 04 Yes 30mg Take 30 mg by mouth 2 (two) times daily. [facility] benazepriL 10 mg tablet 12-12 18:38: 04 Yes 10mg Take 10 mg by mouth daily. [facility] hydroCHLORO thiazide 25 mg tablet 12-12 18:38: 04 Yes 25mg Take 25 mg by mouth daily. [facility] carvediloL 25 mg tablet 12-12 18:38: 04 Yes 25mg Take 25 mg by mouth 2 (two) times daily with meals. [facility] busPIRone 30 mg tablet 12-12 18:38: 04 Yes 30mg Take 30 mg by mouth 2 (two) times daily. [facility] benazepriL 10 mg tablet 12-12 18:38: 04 Yes 10mg Take 10 mg by mouth daily. [facility] hydroCHLORO thiazide 25 mg tablet 12-12 18:38: 04 Yes 25mg Take 25 mg by mouth daily. [facility] carvediloL 25 mg tablet 12-12 18:38: 04 Yes 25mg Take 25 mg by mouth 2 (two) times daily with meals. [facility] busPIRone 30 mg tablet 12-12 18:38: 04 Yes 30mg Take 30 mg by mouth 2 (two) times daily. [facility] benazepriL 10 mg tablet 12-12 18:38: 04 Yes 10mg Take 10 mg by mouth daily. [facility] hydroCHLORO thiazide 25 mg tablet 12-12 18:38: 04 Yes 25mg Take 25 mg by mouth daily. [facility] carvediloL 25 mg tablet 12-12 18:38: 04 Yes 25mg Take 25 mg by mouth 2 (two) times daily with meals. [facility] busPIRone 30 mg tablet 12-12 18:38: 04 Yes 30mg Take 30 mg by mouth 2 (two) times daily. [facility] benazepriL 10 mg tablet 12-12 18:38: 04 Yes 10mg Take 10 mg by mouth daily. [facility] hydroCHLORO thiazide 25 mg tablet 12-12 18:38: 04 Yes 25mg Take 25 mg by mouth daily. [facility] carvediloL 25 mg tablet 12-12 18:38: 04 Yes 25mg Take 25 mg by mouth 2 (two) times daily with meals. [facility] busPIRone 30 mg tablet 12-12 18:38: 04 Yes 30mg Take 30 mg by mouth 2 (two) times daily. [facility] benazepriL 10 mg tablet 12-12 18:38: 04 Yes 10mg Take 10 mg by mouth daily. [facility] hydroCHLORO thiazide 25 mg tablet 12-12 18:38: 04 Yes 25mg Take 25 mg by mouth daily. [facility] carvediloL 25 mg tablet 12-12 18:38: 04 Yes 25mg Take 25 mg by mouth 2 (two) times daily with meals. [facility] busPIRone 30 mg tablet 12-12 18:38: 04 Yes 30mg Take 30 mg by mouth 2 (two) times daily. [facility] benazepriL 10 mg tablet 12-12 18:38: 04 Yes 10mg Take 10 mg by mouth daily. [facility] hydroCHLORO thiazide 25 mg tablet 12-12 18:38: 04 Yes 25mg Take 25 mg by mouth daily. [facility] carvediloL 25 mg tablet 12-12 18:38: 04 Yes 25mg Take 25 mg by mouth 2 (two) times daily with meals. [facility] busPIRone 30 mg tablet 12-12 18:38: 04 Yes 30mg Take 30 mg by mouth 2 (two) times daily. [facility] benazepriL 10 mg tablet 12-12 18:38: 04 Yes 10mg Take 10 mg by mouth daily. [facility] hydroCHLORO thiazide 25 mg tablet 12-12 18:38: 04 Yes 25mg Take 25 mg by mouth daily. [facility] carvediloL 25 mg tablet 12-12 18:38: 04 Yes 25mg Take 25 mg by mouth 2 (two) times daily with meals. [facility] busPIRone 30 mg tablet 12-12 18:38: 04 Yes 30mg Take 30 mg by mouth 2 (two) times daily. [facility] benazepriL 10 mg tablet 12-12 18:38: 04 Yes 10mg Take 10 mg by mouth daily. [facility] hydroCHLORO thiazide 25 mg tablet 12-12 18:38: 04 Yes 25mg Take 25 mg by mouth daily. [facility] carvediloL 25 mg tablet 12-12 18:38: 04 Yes 25mg Take 25 mg by mouth 2 (two) times daily with meals. [facility] busPIRone 30 mg tablet 12-12 18:38: 04 Yes 30mg Take 30 mg by mouth 2 (two) times daily. [facility] benazepriL 10 mg tablet 12-12 18:38: 04 Yes 10mg Take 10 mg by mouth daily. [facility] hydroCHLORO thiazide 25 mg tablet 12-12 18:38: 04 Yes 25mg Take 25 mg by mouth daily. [facility] carvediloL 25 mg tablet 12-12 18:38: 04 Yes 25mg Take 25 mg by mouth 2 (two) times daily with meals. [facility] busPIRone 30 mg tablet 12-12 18:38: 04 Yes 30mg Take 30 mg by mouth 2 (two) times daily. [facility] benazepriL 10 mg tablet 12-12 18:38: 04 Yes 10mg Take 10 mg by mouth daily. [facility] hydroCHLORO thiazide 25 mg tablet 12-12 18:38: 04 Yes 25mg Take 25 mg by mouth daily. [facility] carvediloL 25 mg tablet 12-12 18:38: 04 Yes 25mg Take 25 mg by mouth 2 (two) times daily with meals. [facility] busPIRone 30 mg tablet 12-12 18:38: 04 Yes 30mg Take 30 mg by mouth 2 (two) times daily. [facility] benazepriL 10 mg tablet 12-12 18:38: 04 Yes 10mg Take 10 mg by mouth daily. [facility] hydroCHLORO thiazide 25 mg tablet 12-12 18:38: 04 Yes 25mg Take 25 mg by mouth daily. [facility] carvediloL 25 mg tablet 12-12 18:38: 04 Yes 25mg Take 25 mg by mouth 2 (two) times daily with meals. [facility] busPIRone 30 mg tablet 12-12 18:38: 04 Yes 30mg Take 30 mg by mouth 2 (two) times daily. [facility] benazepriL 10 mg tablet 12-12 18:38: 04 Yes 10mg Take 10 mg by mouth daily. [facility] hydroCHLORO thiazide 25 mg tablet 12-12 18:38: 04 Yes 25mg Take 25 mg by mouth daily. [facility] carvediloL 25 mg tablet 12-12 18:38: 04 Yes 25mg Take 25 mg by mouth 2 (two) times daily with meals. [facility] busPIRone 30 mg tablet 12-12 18:38: 04 Yes 30mg Take 30 mg by mouth 2 (two) times daily. [facility] benazepriL 10 mg tablet 12-12 18:38: 04 Yes 10mg Take 10 mg by mouth daily. [facility] hydroCHLORO thiazide 25 mg tablet 12-12 18:38: 04 Yes 25mg Take 25 mg by mouth daily. [facility] carvediloL 25 mg tablet 12-12 18:38: 04 Yes 25mg Take 25 mg by mouth 2 (two) times daily with meals. [facility] busPIRone 30 mg tablet 12-12 18:38: 04 Yes 30mg Take 30 mg by mouth 2 (two) times daily. [facility] benazepriL 10 mg tablet 12-12 18:38: 04 Yes 10mg Take 10 mg by mouth daily. [facility] hydroCHLORO thiazide 25 mg tablet 12-12 18:38: 04 Yes 25mg Take 25 mg by mouth daily. [facility] iohexol (OMNIPAQUE 350 BULK-150 mL) injection 120 mL 12-12 17:30: 00 12-12 17:21 :00 No [id number] 120mL 120 mL, Intravenou s, ONCE, 1 dose, Tue12/12/20 at 1230, Routine [facility] aspirin 81 mg EC tablet 12-12 16:57: 40 12-12 00:00 :00 No 81mg Take 81 mg by mouth daily. [facility] varenicline (CHANTIX) 1 mg tablet 12-12 16:57: 18 12-12 00:00 :00 No 1mg Take 1 mg by mouth 2 (two) times daily. [facility] predniSONE 20 mg tablet 12-12 16:57: 12 12-12 00:00 :00 No 20mg Take 20 mg by mouth daily. [facility] fluticasone -umeclidin- vilanter (TRELEGY ELLIPTA) 100-62.5-25 mcg DsDv 12-12 16:56: 46 12-12 00:00 :00 No 1{puff} Inhale 1 Puff daily. [facility] cefpodoxime 100 mg tablet 12-12 00:00: 00 Yes [id number] 100mg Take 1 tablet by mouth 2 (two) times daily. [facility] cefpodoxime 100 mg tablet 12-12 00:00: 00 Yes [id number] 100mg Take 1 tablet by mouth 2 (two) times daily. [facility] cefpodoxime 100 mg tablet 12-12 00:00: 00 Yes [id number] 100mg Take 1 tablet by mouth 2 (two) times daily. [facility] cefpodoxime 100 mg tablet 12-12 00:00: 00 Yes [id number] 100mg Take 1 tablet by mouth 2 (two) times daily. [facility] cefpodoxime 100 mg tablet 12-12 00:00: 00 Yes [id number] 100mg Take 1 tablet by mouth 2 (two) times daily. [facility] cefpodoxime 100 mg tablet 2020-0 12-12 00:00: 00 Yes [id number] 100mg Take 1 tablet by mouth 2 (two) times daily. [facility] cefpodoxime 100 mg tablet 2020-0 12-12 00:00: 00 Yes [id number] 100mg Take 1 tablet by mouth 2 (two) times daily. [facility] cefpodoxime 100 mg tablet 2020-0 12-12 00:00: 00 Yes [id number] 100mg Take 1 tablet by mouth 2 (two) times daily. [facility] cefpodoxime 100 mg tablet 2020-0 12-12 00:00: 00 Yes [id number] 100mg Take 1 tablet by mouth 2 (two) times daily. [facility] cefpodoxime 100 mg tablet 2020-0 12-12 00:00: 00 Yes [id number] 100mg Take 1 tablet by mouth 2 (two) times daily. [facility] cefpodoxime 100 mg tablet 2020-0 12-12 00:00: 00 Yes [id number] 100mg Take 1 tablet by mouth 2 (two) times daily. [facility] cefpodoxime 100 mg tablet 2020-0 12-12 00:00: 00 Yes [id number] 100mg Take 1 tablet by mouth 2 (two) times daily. [facility] cefpodoxime 100 mg tablet 2020-0 12-12 00:00: 00 Yes [id number] 100mg Take 1 tablet by mouth 2 (two) times daily. [facility] cefpodoxime 100 mg tablet 2020-0 12-12 00:00: 00 Yes [id number] 100mg Take 1 tablet by mouth 2 (two) times daily. [facility] cefpodoxime 100 mg tablet 2020-0 12-12 00:00: 00 Yes [id number] 100mg Take 1 tablet by mouth 2 (two) times daily. [facility] cefpodoxime 100 mg tablet 2020-0 12-12 00:00: 00 20211-11 00:00 :00 No [id number] 100mg Take 1 tablet by mouth 2 (two) times daily. [facility] cefpodoxime 100 mg tablet 12-12 00:00: 00 12-12 00:00 :00 No [id number] 100mg Take 1 tablet by mouth 2 (two) times daily for 7 days. [facility] XARELTO 15 mg tablet 10-16 00:00: 00 Yes [facility] XARELTO 15 mg tablet 10-16 00:00: 00 Yes [facility] XARELTO 15 mg tablet 10-16 00:00: 00 Yes [facility] XARELTO 15 mg tablet 10-16 00:00: 00 Yes [facility] XARELTO 15 mg tablet 10-16 00:00: 00 Yes [facility] XARELTO 15 mg tablet 10-16 00:00: 00 Yes [facility] XARELTO 15 mg tablet 10-16 00:00: 00 Yes [facility] XARELTO 15 mg tablet 10-16 00:00: 00 Yes [facility] XARELTO 15 mg tablet 10-16 00:00: 00 Yes [facility] XARELTO 15 mg tablet 10-16 00:00: 00 Yes [facility] XARELTO 15 mg tablet 10-16 00:00: 00 Yes [facility] XARELTO 15 mg tablet 10-16 00:00: 00 Yes [facility] XARELTO 15 mg tablet 10-16 00:00: 00 Yes [facility] XARELTO 15 mg tablet 10-16 00:00: 00 Yes [facility] XARELTO 15 mg tablet 10-16 00:00: 00 Yes [facility] XARELTO 15 mg tablet 10-16 00:00: 00 Yes [facility] XARELTO 15 mg tablet 10-16 00:00: 00 Yes [facility] XARELTO 15 mg tablet 10-16 00:00: 00 Yes [facility] XARELTO 15 mg tablet 10-16 00:00: 00 Yes [facility] XARELTO 15 mg tablet 10-16 00:00: 00 Yes [facility] XARELTO 15 mg tablet 10-16 00:00: 00 Yes [facility] XARELTO 15 mg tablet 10-16 00:00: 00 Yes [facility] XARELTO 15 mg tablet 10-16 00:00: 00 Yes [facility] XARELTO 15 mg tablet 10-16 00:00: 00 11-28 00:00 :00 No [facility] omeprazole 40 mg capsule 2018-09 00:11: 42 Yes 40mg Take 40 mg by mouth daily. [facility] omeprazole 40 mg capsule 2018-09 00:11: 42 Yes 40mg Take 40 mg by mouth daily. [facility] varenicline (CHANTIX) 1 mg tablet 2018-09 00:11: 42 Yes 1mg Take 1 mg by mouth 2 (two) times daily. [facility] predniSONE 20 mg tablet 2018-09 00:11: 42 Yes 20mg Take 20 mg by mouth daily. [facility] omeprazole 40 mg capsule 2018-09 00:11: 42 Yes 40mg Take 40 mg by mouth daily. [facility] fluticasone -umeclidin- vilanter (TRELEGY ELLIPTA) 100-62.5-25 mcg DsDv 2018-09 00:11: 42 Yes 1{puff} Inhale 1 Puff daily. [facility] aspirin 81 mg EC tablet 2018-09 00:11: 42 Yes 81mg Take 81 mg by mouth daily. [facility] varenicline (CHANTIX) 1 mg tablet 2018-09 00:11: 42 Yes 1mg Take 1 mg by mouth 2 (two) times daily. [facility] predniSONE 20 mg tablet 2018-09 00:11: 42 Yes 20mg Take 20 mg by mouth daily. [facility] omeprazole 40 mg capsule 2018-09 00:11: 42 Yes 40mg Take 40 mg by mouth daily. [facility] fluticasone -umeclidin- vilanter (TRELEGY ELLIPTA) 100-62.5-25 mcg DsDv 2018-09 00:11: 42 Yes 1{puff} Inhale 1 Puff daily. [facility] aspirin 81 mg EC tablet 2018-09 00:11: 42 Yes 81mg Take 81 mg by mouth daily. [facility] varenicline (CHANTIX) 1 mg tablet 2018-09 00:11: 42 Yes 1mg Take 1 mg by mouth 2 (two) times daily. [facility] predniSONE 20 mg tablet 2018-09 00:11: 42 Yes 20mg Take 20 mg by mouth daily. [facility] omeprazole 40 mg capsule 2018-09 00:11: 42 Yes 40mg Take 40 mg by mouth daily. [facility] fluticasone -umeclidin- vilanter (TRELEGY ELLIPTA) 100-62.5-25 mcg DsDv 2018-09 00:11: 42 Yes 1{puff} Inhale 1 Puff daily. [facility] aspirin 81 mg EC tablet 2018-09 00:11: 42 Yes 81mg Take 81 mg by mouth daily. [facility] varenicline (CHANTIX) 1 mg tablet 2018-09 00:11: 42 Yes 1mg Take 1 mg by mouth 2 (two) times daily. [facility] predniSONE 20 mg tablet 2018-09 00:11: 42 Yes 20mg Take 20 mg by mouth daily. [facility] omeprazole 40 mg capsule 2018-09 00:11: 42 Yes 40mg Take 40 mg by mouth daily. [facility] fluticasone -umeclidin- vilanter (TRELEGY ELLIPTA) 100-62.5-25 mcg DsDv 2018-09 00:11: 42 Yes 1{puff} Inhale 1 Puff daily. [facility] aspirin 81 mg EC tablet 2018-09 00:11: 42 Yes 81mg Take 81 mg by mouth daily. [facility] varenicline (CHANTIX) 1 mg tablet 2018-09 00:11: 42 Yes 1mg Take 1 mg by mouth 2 (two) times daily. [facility] predniSONE 20 mg tablet 2018-09 00:11: 42 Yes 20mg Take 20 mg by mouth daily. [facility] omeprazole 40 mg capsule 2018-09 00:11: 42 Yes 40mg Take 40 mg by mouth daily. [facility] fluticasone -umeclidin- vilanter (TRELEGY ELLIPTA) 100-62.5-25 mcg DsDv 2018-09 00:11: 42 Yes 1{puff} Inhale 1 Puff daily. [facility] aspirin 81 mg EC tablet 2018-09 00:11: 42 Yes 81mg Take 81 mg by mouth daily. [facility] varenicline (CHANTIX) 1 mg tablet 2018-09 00:11: 42 Yes 1mg Take 1 mg by mouth 2 (two) times daily. [facility] predniSONE 20 mg tablet 2018-09 00:11: 42 Yes 20mg Take 20 mg by mouth daily. [facility] omeprazole 40 mg capsule 2018-09 00:11: 42 Yes 40mg Take 40 mg by mouth daily. [facility] fluticasone -umeclidin- vilanter (TRELEGY ELLIPTA) 100-62.5-25 mcg DsDv 2018-09 00:11: 42 Yes 1{puff} Inhale 1 Puff daily. [facility] aspirin 81 mg EC tablet 2018-09 00:11: 42 Yes 81mg Take 81 mg by mouth daily. [facility] omeprazole 40 mg capsule 2018-09 00:11: 42 Yes 40mg Take 40 mg by mouth daily. [facility] omeprazole 40 mg capsule 2018-09 00:11: 42 Yes 40mg Take 40 mg by mouth daily. [facility] omeprazole 40 mg capsule 2018-09 00:11: 42 Yes 40mg Take 40 mg by mouth daily. [facility] omeprazole 40 mg capsule 2018-09 00:11: 42 Yes 40mg Take 40 mg by mouth daily. [facility] omeprazole 40 mg capsule 2018-09 00:11: 42 Yes 40mg Take 40 mg by mouth daily. [facility] omeprazole 40 mg capsule 2018-09 00:11: 42 Yes 40mg Take 40 mg by mouth daily. [facility] omeprazole 40 mg capsule 2018-09 00:11: 42 Yes 40mg Take 40 mg by mouth daily. [facility] omeprazole 40 mg capsule 2018-09 00:11: 42 Yes 40mg Take 40 mg by mouth daily. [facility] omeprazole 40 mg capsule 2018-09 00:11: 42 Yes 40mg Take 40 mg by mouth daily. [facility] omeprazole 40 mg capsule 2018-09 00:11: 42 Yes 40mg Take 40 mg by mouth daily. [facility] omeprazole 40 mg capsule 2018-09 00:11: 42 Yes 40mg Take 40 mg by mouth daily. [facility] omeprazole 40 mg capsule 2018-09 00:11: 42 Yes 40mg Take 40 mg by mouth daily. [facility] omeprazole 40 mg capsule 2018-09 00:11: 42 Yes 40mg Take 40 mg by mouth daily. [facility] KCL 20 mEq tablet 2018-09 00:00: 00 Yes [id number] 40meq Take 2 tablets by mouth daily. [facility] KCL 20 mEq tablet 2018-09 00:00: 00 Yes [id number] 40meq Take 2 tablets by mouth daily. [facility] atorvastati n 20 mg tablet 2018-09 00:00: 00 Yes [id number] 20mg Take 1 tablet by mouth at bedtime. [facility] metoprolol succinate XL 50 mg 24 hr tablet 2018-09 00:00: 00 Yes [id number] 50mg Take 1 tablet by mouth 2 (two) times daily. [facility] furosemide 40 mg tablet 2018-09 00:00: 00 Yes [id number] 40mg Take 1 tablet by mouth every morning and evening. [facility] KCL 20 mEq tablet 2018-09 00:00: 00 Yes [id number] 40meq Take 2 tablets by mouth daily. [facility] atorvastati n 20 mg tablet 2018-09 00:00: 00 Yes [id number] 20mg Take 1 tablet by mouth at bedtime. [facility] metoprolol succinate XL 50 mg 24 hr tablet 2018-09 00:00: 00 Yes [id number] 50mg Take 1 tablet by mouth 2 (two) times daily. [facility] furosemide 40 mg tablet 2018-09 00:00: 00 Yes [id number] 40mg Take 1 tablet by mouth every morning and evening. [facility] KCL 20 mEq tablet 2018-09 00:00: 00 Yes [id number] 40meq Take 2 tablets by mouth daily. [facility] atorvastati n 20 mg tablet 2018-09 00:00: 00 Yes [id number] 20mg Take 1 tablet by mouth at bedtime. [facility] metoprolol succinate XL 50 mg 24 hr tablet 2018-09 00:00: 00 Yes [id number] 50mg Take 1 tablet by mouth 2 (two) times daily. [facility] furosemide 40 mg tablet 2018-09 00:00: 00 Yes [id number] 40mg Take 1 tablet by mouth every morning and evening. [facility] KCL 20 mEq tablet 2018-09 00:00: 00 Yes [id number] 40meq Take 2 tablets by mouth daily. [facility] atorvastati n 20 mg tablet 2018-09 00:00: 00 Yes [id number] 20mg Take 1 tablet by mouth at bedtime. [facility] metoprolol succinate XL 50 mg 24 hr tablet 2018-09 00:00: 00 Yes [id number] 50mg Take 1 tablet by mouth 2 (two) times daily. [facility] furosemide 40 mg tablet 2018-09 00:00: 00 Yes [id number] 40mg Take 1 tablet by mouth every morning and evening. [facility] KCL 20 mEq tablet 2018-09 00:00: 00 Yes [id number] 40meq Take 2 tablets by mouth daily. [facility] atorvastati n 20 mg tablet 2018-09 00:00: 00 Yes [id number] 20mg Take 1 tablet by mouth at bedtime. [facility] metoprolol succinate XL 50 mg 24 hr tablet 2018-09 00:00: 00 Yes [id number] 50mg Take 1 tablet by mouth 2 (two) times daily. [facility] furosemide 40 mg tablet 2018-09 00:00: 00 Yes [id number] 40mg Take 1 tablet by mouth every morning and evening. [facility] KCL 20 mEq tablet 2018-09 00:00: 00 Yes [id number] 40meq Take 2 tablets by mouth daily. [facility] atorvastati n 20 mg tablet 2018-09 00:00: 00 Yes [id number] 20mg Take 1 tablet by mouth at bedtime. [facility] metoprolol succinate XL 50 mg 24 hr tablet 2018-09 00:00: 00 Yes [id number] 50mg Take 1 tablet by mouth 2 (two) times daily. [facility] furosemide 40 mg tablet 2018-09 00:00: 00 Yes [id number] 40mg Take 1 tablet by mouth every morning and evening. [facility] KCL 20 mEq tablet 2018-09 00:00: 00 Yes [id number] 40meq Take 2 tablets by mouth daily. [facility] KCL 20 mEq tablet 2018-09 00:00: 00 Yes [id number] 40meq Take 2 tablets by mouth daily. [facility]09 00:00: 00 Yes [id number] 40meq Take 2 tablets by mouth daily. [facility]Eq [facility] 2018-09 00:00: 00 Yes [id number] 40meq Take 2 tablets by mouth daily. [facility]Eq tablet 2018-09 00:00: 00 Yes [id number] 40meq Take 2 tablets by mouth daily. [facility] 2018-09 00:00: 00 Yes [id number] 40meq Take 2 tablets by mouth daily. [facility] KCL 20 mEq tablet 2018-09 00:00: 00 Yes [id number] 40meq Take 2 tablets by mouth daily. [facility] KCL 20 mEq tablet 2018-09 00:00: 00 Yes [id number] 40meq Take 2 tablets by mouth daily. [facility] KCL 20 mEq tablet 2018-09 00:00: 00 Yes [id number] 40meq Take 2 tablets by mouth daily. [facility] KCL 20 mEq tablet 2018-09 00:00: 00 Yes [id number] 40meq Take 2 tablets by mouth daily. [facility] KCL 20 mEq tablet 2018-09 00:00: 00 Yes [id number] 40meq Take 2 tablets by mouth daily. [facility] KCL 20 mEq tablet 2018-09 00:00: 00 Yes [id number] 40meq Take 2 tablets by mouth daily. [facility] KCL 20 mEq tablet 2018-09 00:00: 00 Yes [id number] 40meq Take 2 tablets by mouth daily. [facility] KCL 20 mEq tablet 2018-09 00:00: 00 Yes [id number] 40meq Take 2 tablets by mouth daily. [facility] KCL 20 mEq tablet 2018-09 00:00: 00 Yes [id number] 40meq Take 2 tablets by mouth daily. [facility] KCL 20 mEq tablet 2018-09 00:00: 00 Yes [id number] 40meq Take 2 tablets by mouth daily. [facility] KCL 20 mEq tablet 2018-09 00:00: 00 Yes [id number] 40meq Take 2 tablets by mouth daily. [facility] KCL 20 mEq tablet 2018-09 00:00: 00 Yes [id number] 40meq Take 2 tablets by mouth daily. [facility] KCL 20 mEq tablet 2018-09 00:00: 00 Yes [id number] 40meq Take 2 tablets by mouth daily. [facility] KCL 20 mEq tablet 2018-09 00:00: 00 11-28 00:00 :00 No [id number] 40meq Take 2 tablets by mouth daily. [facility] atorvastati n 20 mg tablet 2018-09 00:00: 00 12-12 00:00 :00 No [id number] 20mg Take 1 tablet by mouth at bedtime. [facility] metoprolol succinate XL 50 mg 24 hr tablet 2018-09 00:00: 00 12-12 00:00 :00 No [id number] 50mg Take 1 tablet by mouth 2 (two) times daily. [facility] furosemide 40 mg tablet 2018-09 00:00: 00 12-12 00:00 :00 No [id number] 40mg Take 1 tablet by mouth every morning and evening. [facility] ipratropium -albuterol (DUONEB) 0.5 mg-3 mg(2.5 mg base)/3 mL nebulizer solution 3 mL 05-04 13:00: 00 Yes 3mL 3 mL, Inhalation , QID, First dose on Tue05/04/19 at 0800, Until Discontinu ed, Routine [facility] ibuprofen 600 mg tablet 02-16 00:00: 00 Yes [id number] 600mg Take 1 tablet by mouth every 8 (eight) hours as needed (PAIN). [facility] ibuprofen 600 mg tablet 02-16 00:00: 00 Yes [id number] 600mg Take 1 tablet by mouth every 8 (eight) hours as needed (pain). [facility] ibuprofen 600 mg tablet 02-16 00:00: 00 05-03 00:00 :00 No [id number] 600mg Take 1 tablet by mouth every 8 (eight) hours as needed (PAIN). [facility] ibuprofen 600 mg tablet 02-16 00:00: 05-03 00:00 :00 No [id number] 600mg Take 1 tablet by mouth every 8 (eight) hours as needed (pain). [facility] magnesium oxide (MAG-OX 400) 400 mg tablet 11-11 00:00: 00 Yes 400mg Take 1 Tab by mouth 3 (three) times daily. [facility] enalapril (VASOTEC) 2.5 mg tablet 11-11 00:00: 00 Yes [id number] 2.5mg Take 1 Tab by mouth 2 (two) times daily. [facility] pantoprazol e (PROTONIX) 40 mg EC tablet 11-11 00:00: 00 Yes 40mg Take 1 Tab by mouth daily. [facility] KCL (KLOR-CON M20) 20 mEq tablet 11-11 00:00: 00 Yes 20meq Take 1 Tab by mouth daily. [facility] furosemide (LASIX) 40 mg tablet 11-11 00:00: 00 Yes [id number] 40mg Take 1 Tab by mouth 2 (two) times daily. [facility] metoprolol succinate XL (TOPROL XL) 100 mg 24 hr tablet 11-11 00:00: 00 Yes 100mg Take 1 Tab by mouth daily. [facility] magnesium oxide (MAG-OX 400) 400 mg tablet 11-11 00:00: 00 05-03 00:00 :00 No 400mg Take 1 Tab by mouth 3 (three) times daily. [facility] enalapril (VASOTEC) 2.5 mg tablet 11-11 00:00: 05-03 00:00 :00 No [id number] 2.5mg Take 1 Tab by mouth 2 (two) times daily. [facility] pantoprazol e (PROTONIX) 40 mg EC tablet 11-11 00:00: 00 05-03 00:00 :00 No 40mg Take 1 Tab by mouth daily. [facility] KCL (KLOR-CON M20) 20 mEq tablet 11-11 00:00: 00 05-03 00:00 :00 No 20meq Take 1 Tab by mouth daily. [facility] furosemide (LASIX) 40 mg tablet 11-11 00:00: 00 05-03 00:00 :00 No [id number] 40mg Take 1 Tab by mouth 2 (two) times daily. [facility] metoprolol succinate XL (TOPROL XL) 100 mg 24 hr tablet 11-11 00:00: 00 05-03 00:00 :00 No 100mg Take 1 Tab by mouth daily. [facility] aspirin 81 mg chewable tablet 2013-09 00:00: 00 Yes 81mg Take 1 Tab by mouth daily. [facility] ipratropium (ATROVENT) 0.02 % nebulizer solution 2013-09 00:00: 00 Yes .5mg Inhale 2.5 mL 4 (four) times daily. [facility] levalbutero l (XOPENEX) 0.31 mg/3 mL nebulizer solution 2013-09 00:00: 00 Yes .31mg Inhale 0.31 mg 3 (three) times daily. [facility] aspirin 81 mg chewable tablet 2013-09 00:00: 00 Yes 81mg Take 1 Tab by mouth daily. [facility] ipratropium (ATROVENT) 0.02 % nebulizer solution 2013-09 00:00: 00 Yes .5mg Inhale 2.5 mL 4 (four) times daily. [facility] levalbutero l (XOPENEX) 0.31 mg/3 mL nebulizer solution 2013-09 00:00: 00 Yes .31mg Inhale 0.31 mg 3 (three) times daily. [facility] aspirin 81 mg chewable tablet 2013-09 00:00: 00 Yes 81mg Take 1 Tab by mouth daily. [facility] ipratropium (ATROVENT) 0.02 % nebulizer solution 2013-09 00:00: 00 Yes .5mg Inhale 2.5 mL 4 (four) times daily. [facility] levalbutero l (XOPENEX) 0.31 mg/3 mL nebulizer solution 2013-09 00:00: 00 Yes .31mg Inhale 0.31 mg 3 (three) times daily. [facility] aspirin 81 mg chewable tablet 2013-09 00:00: 00 Yes 81mg Take 1 Tab by mouth daily. [facility] 0.02 % nebulizer solution 2013-09 00:00: 00 Yes .5mg Inhale 2.5 mL 4 (four) times daily. [facility] levalbutero l (XOPENEX) 0.31 mg/3 mL nebulizer solution 2013-09 00:00: 00 Yes .31mg Inhale 0.31 mg 3 (three) times daily. [facility] aspirin 81 mg chewable tablet 2013-09 00:00: 00 Yes 81mg Take 1 Tab by mouth daily. [facility] ipratropium (ATROVENT) 0.02 % nebulizer solution 2013-09 00:00: 00 Yes .5mg Inhale 2.5 mL 4 (four) times daily. [facility] levalbutero l (XOPENEX) 0.31 mg/3 mL nebulizer solution 2013-09 00:00: 00 Yes .31mg Inhale 0.31 mg 3 (three) times daily. [facility] aspirin 81 mg chewable tablet 2013-09 00:00: 00 Yes 81mg Take 1 Tab by mouth daily. [facility] ipratropium (ATROVENT) 0.02 % nebulizer solution 2013-09 00:00: 00 Yes .5mg Inhale 2.5 mL 4 (four) times daily. [facility] levalbutero l (XOPENEX) 0.31 mg/3 mL nebulizer solution 2013-09 00:00: 00 Yes .31mg Inhale 0.31 mg 3 (three) times daily. [facility] 2013-09 00:00: 00 Yes 81mg Take 1 Tab by mouth daily. [facility] ([facility]OVENT) 0.02 % nebulizer solution 2013-09 00:00: 00 Yes .5mg Inhale 2.5 mL 4 (four) times daily. [facility] (XOPENEX) 0.31 mg/3 mL nebulizer solution 2013-09 00:00: 00 Yes .31mg Inhale 0.31 mg 3 (three) times daily. [facility] aspirin 81 mg chewable tablet 2013-09 00:00: 00 Yes 81mg Take 1 Tab by mouth daily. [facility] ipratropium (ATROVENT) 0.02 % nebulizer solution 2013-09 00:00: 00 Yes .5mg Inhale 2.5 mL 4 (four) times daily. [facility] levalbutero l (XOPENEX) 0.31 mg/3 mL nebulizer solution 2013-09 00:00: 00 Yes .31mg Inhale 0.31 mg 3 (three) times daily. [facility] aspirin 81 mg chewable tablet 2013-09 00:00: 00 Yes 81mg Take 1 Tab by mouth daily. [facility] ipratropium (ATROVENT) 0.02 % nebulizer solution 2013-09 00:00: 00 Yes .5mg Inhale 2.5 mL 4 (four) times daily. [facility] (X[facility]) 0.31 mg/3 mL nebulizer solution 2013-09 00:00: 00 Yes .31mg Inhale 0.31 mg 3 (three) times daily. [facility] aspirin 81 mg chewable tablet 2013-09 00:00: 00 Yes 81mg Take 1 Tab by mouth daily. [facility] ipratropium (ATROVENT) 0.02 % nebulizer solution 2013-09 00:00: 00 Yes .5mg Inhale 2.5 mL 4 (four) times daily. [facility] levalbutero l (XOPENEX) 0.31 mg/3 mL nebulizer solution 2013-09 00:00: 00 Yes .31mg Inhale 0.31 mg 3 (three) times daily. [facility] aspirin 81 mg chewable tablet 2013-09 00:00: 00 Yes 81mg Take 1 Tab by mouth daily. [facility] ipratropium (ATROVENT) 0.02 % nebulizer solution 2013-09 00:00: 00 Yes .5mg Inhale 2.5 mL 4 (four) times daily. [facility] levalbutero l (XOPENEX) 0.31 mg/3 mL nebulizer solution 2013-09 00:00: 00 Yes .31mg Inhale 0.31 mg 3 (three) times daily. [facility] aspirin 81 mg chewable tablet 2013-09 00:00: 00 Yes 81mg Take 1 Tab by mouth daily. [facility] ipratropium (ATROVENT) 0.02 % nebulizer solution 2013-09 00:00: 00 Yes .5mg Inhale 2.5 mL 4 (four) times daily. [facility] levalbutero l (XOPENEX) 0.31 mg/3 mL nebulizer solution 2013-09 00:00: 00 Yes .31mg Inhale 0.31 mg 3 (three) times daily. [facility] aspirin 81 mg chewable tablet 2013-09 00:00: 00 Yes 81mg Take 1 Tab by mouth daily. [facility] ipratropium (ATROVENT) 0.02 % nebulizer solution 2013-09 00:00: 00 Yes .5mg Inhale 2.5 mL 4 (four) times daily. [facility] levalbutero l (XOPENEX) 0.31 mg/3 mL nebulizer solution 2013-09 00:00: 00 Yes .31mg Inhale 0.31 mg 3 (three) times daily. [facility] mg [facility]wable tablet 2013-09 00:00: 00 Yes 81mg Take 1 Tab by mouth daily. [facility] ipratropium (ATROVENT) 0.02 % nebulizer solution 2013-09 00:00: 00 Yes .5mg Inhale 2.5 mL 4 (four) times daily. [facility] levalbutero l (XOPENEX) 0.31 mg/3 mL nebulizer solution 2013-09 00:00: 00 Yes .31mg Inhale 0.31 mg 3 (three) times daily. [facility] aspirin 81 mg chewable tablet 2013-09 00:00: 00 Yes 81mg Take 1 Tab by mouth daily. [facility] ([facility]OVENT) 0.02 % nebulizer solution 2013-09 00:00: 00 Yes .5mg Inhale 2.5 mL 4 (four) times daily. [facility] leval[facility] (XOPENEX) 0.31 mg/3 mL nebulizer solution 2013-09 00:00: 00 Yes .31mg Inhale 0.31 mg 3 (three) times daily. [facility] aspirin 81 mg chewable tablet 2013-09 00:00: 00 Yes 81mg Take 1 Tab by mouth daily. [facility] ([facility]ROVENT) 0.02 % nebulizer solution 2013-09 00:00: 00 Yes .5mg Inhale 2.5 mL 4 (four) times daily. [facility] leval[facility] (XOPENEX) 0.31 mg/3 mL nebulizer solution 2013-09 00:00: 00 Yes .31mg Inhale 0.31 mg 3 (three) times daily. [facility] mg chewable tablet 2013-09 00:00: 00 Yes 81mg Take 1 Tab by mouth daily. [facility] ipratropium (ATROVENT) 0.02 % nebulizer solution 2013-09 00:00: 00 Yes .5mg Inhale 2.5 mL 4 (four) times daily. [facility] levalbutero l (XOPENEX) 0.31 mg/3 mL nebulizer solution 2013-09 00:00: 00 Yes .31mg Inhale 0.31 mg 3 (three) times daily. [facility] aspirin 81 mg chewable tablet 2013-09 00:00: 00 Yes 81mg Take 1 Tab by mouth daily. [facility] ipratropium (ATROVENT) 0.02 % nebulizer solution 2013-09 00:00: 00 Yes .5mg Inhale 2.5 mL 4 (four) times daily. [facility] levalbutero l (XOPENEX) 0.31 mg/3 mL nebulizer solution 2013-09 00:00: 00 Yes .31mg Inhale 0.31 mg 3 (three) times daily. [facility] aspirin 81 mg chewable tablet 2013-09 00:00: 00 Yes 81mg Take 1 Tab by mouth daily. [facility] ipratropium (ATROVENT) 0.02 % nebulizer solution 2013-09 00:00: 00 Yes .5mg Inhale 2.5 mL 4 (four) times daily. [facility] levalbutero l (XOPENEX) 0.31 mg/3 mL nebulizer solution 2013-09 00:00: 00 Yes .31mg Inhale 0.31 mg 3 (three) times daily. [facility] aspirin 81 mg chewable tablet 2013-09 00:00: 00 Yes 81mg Take 1 Tab by mouth daily. [facility] ([facility]ENT) 0.02 % nebulizer solution 2013-09 00:00: 00 Yes .5mg Inhale 2.5 mL 4 (four) times daily. [facility] levalbutero l (XOPENEX) 0.31 mg/3 mL nebulizer solution 2013-09 00:00: 00 Yes .31mg Inhale 0.31 mg 3 (three) times daily. [facility] aspirin 81 mg chewable tablet 2013-09 00:00: 00 Yes 81mg Take 1 Tab by mouth daily. [facility] ipratropium (ATROVENT) 0.02 % nebulizer solution 2013-09 00:00: 00 Yes .5mg Inhale 2.5 mL 4 (four) times daily. [facility] levalbutero l (XOPENEX) 0.31 mg/3 mL nebulizer solution 2013-09 00:00: 00 Yes .31mg Inhale 0.31 mg 3 (three) times daily. [facility] mg chewable tablet 2013-09 00:00: 00 Yes 81mg Take 1 Tab by mouth daily. [facility] ipratropium (ATROVENT) 0.02 % nebulizer solution 2013-09 00:00: 00 Yes .5mg Inhale 2.5 mL 4 (four) times daily. [facility] levalbutero l (XOPENEX) 0.31 mg/3 mL nebulizer solution 2013-09 00:00: 00 Yes .31mg Inhale 0.31 mg 3 (three) times daily. [facility] aspirin 81 mg chewable tablet 2013-09 00:00: 00 Yes 81mg Take 1 Tab by mouth daily. [facility] ([facility]ROVENT) 0.02 % nebulizer solution 2013-09 00:00: 00 Yes .5mg Inhale 2.5 mL 4 (four) times daily. [facility] levalbutero l (XOPENEX) 0.31 mg/3 mL nebulizer solution 2013-09 00:00: 00 Yes .31mg Inhale 0.31 mg 3 (three) times daily. [facility] mg chewable tablet 2013-09 00:00: 00 Yes 81mg Take 1 Tab by mouth daily. [facility] (ATROVENT) 0.02 % nebulizer solution 2013-09 00:00: 00 Yes .5mg Inhale 2.5 mL 4 (four) times daily. [facility] levalbutero l (XOPENEX) 0.31 mg/3 mL nebulizer solution 2013-09 00:00: 00 Yes .31mg Inhale 0.31 mg 3 (three) times daily. [facility] aspirin 81 mg chewable tablet 2013-09 00:00: 00 Yes 81mg Take 1 Tab by mouth daily. [facility] ipratropium (ATROVENT) 0.02 % nebulizer solution 2013-09 00:00: 00 Yes .5mg Inhale 2.5 mL 4 (four) times daily. [facility] levalbutero l (XOPENEX) 0.31 mg/3 mL nebulizer solution 2013-09 00:00: 00 Yes .31mg Inhale 0.31 mg 3 (three) times daily. [facility] aspirin 81 mg chewable tablet 2013-09 00:00: 00 Yes 81mg Take 1 Tab by mouth daily. [facility] ipratropium (ATROVENT) 0.02 % nebulizer solution 2013-09 00:00: 00 Yes .5mg Inhale 2.5 mL 4 (four) times daily. [facility] levalbutero l (XOPENEX) 0.31 mg/3 mL nebulizer solution 2013-09 00:00: 00 Yes .31mg Inhale 0.31 mg 3 (three) times daily. [facility] aspirin 81 mg chewable tablet 2013-09 00:00: 00 Yes 81mg Take 1 Tab by mouth daily. [facility] ipratropium (ATROVENT) 0.02 % nebulizer solution 2013-09 00:00: 00 Yes .5mg Inhale 2.5 mL 4 (four) times daily. [facility] levalbutero l (XOPENEX) 0.31 mg/3 mL nebulizer solution 2013-09 00:00: 00 Yes .31mg Inhale 0.31 mg 3 (three) times daily. [facility] aspirin 81 mg chewable tablet 2013-09 00:00: 00 Yes 81mg Take 1 Tab by mouth daily. [facility] ipratropium (ATROVENT) 0.02 % nebulizer solution 2013-09 00:00: 00 Yes .5mg Inhale 2.5 mL 4 (four) times daily. [facility] levalbutero l (XOPENEX) 0.31 mg/3 mL nebulizer solution 2013-09 00:00: 00 Yes .31mg Inhale 0.31 mg 3 (three) times daily. [facility] aspirin 81 mg chewable tablet 2013-09 00:00: 00 11-28 00:00 :00 No 81mg Take 1 Tab by mouth daily. [facility] ipratropium (ATROVENT) 0.02 % nebulizer solution 2013-09 00:00: 00 11-28 00:00 :00 No .5mg Inhale 2.5 mL 4 (four) times daily. [facility] levalbutero l (XOPENEX) 0.31 mg/3 mL nebulizer solution 2013-09 00:00: 00 11-28 00:00 :00 No .31mg Inhale 0.31 mg 3 (three) times daily. [facility] Immunizations Ordered Immunization Name Filled Immunization Name Date Status Comments Source Pneumococcal 20 Conjugate, PCV20 (Prevnar 20) 2022-12-12 00:00:00 Completed [facility] Pneumococcal 20 Conjugate, PCV20 (Prevnar 20) 2022-12-12 00:00:00 Completed [facility] Pneumococcal 20 Conjugate, PCV20 (Prevnar 20) 2022-12-12 00:00:00 Completed [facility] Pneumococcal 20 Conjugate, PCV20 (Prevnar 20) 2022-12-12 00:00:00 Completed [facility] Pneumococcal 20 Conjugate, PCV20 (Prevnar 20) 2022-12-12 00:00:00 Completed [facility] Pneumococcal 20 Conjugate, PCV20 (Prevnar 20) 2022-12-12 00:00:00 Completed [facility] Pneumococcal 20 Conjugate, PCV20 (Prevnar 20) 2022-12-12 00:00:00 Completed [facility] Pneumococcal 20 Conjugate, PCV20 (Prevnar 20) 2022-12-12 00:00:00 Completed [facility] Pneumococcal 20 Conjugate, PCV20 (Prevnar 20) 2022-12-12 00:00:00 Completed [facility] Pneumococcal 20 Conjugate, PCV20 (Prevnar 20) 2022-12-12 00:00:00 Completed [facility] Pneumococcal 20 Conjugate, PCV20 (Prevnar 20) 2022-12-12 00:00:00 Completed [facility] Pneumococcal 20 Conjugate, PCV20 (Prevnar 20) 2022-12-12 00:00:00 Completed [facility] Pneumococcal 20 Conjugate, PCV20 (Prevnar 20) 2022-12-12 00:00:00 Completed [facility] Pneumococcal 20 Conjugate, PCV20 (Prevnar 20) 2022-12-12 00:00:00 Completed [facility] Pneumococcal 20 Conjugate, PCV20 (Prevnar 20) 2022-12-12 00:00:00 Completed [facility] Pneumococcal 20 Conjugate, PCV20 (Prevnar 20) 2022-12-12 00:00:00 Completed [facility] Pneumococcal 20 Conjugate, PCV20 (Prevnar 20) 2022-12-12 00:00:00 Completed [facility] Pneumococcal 20 Conjugate, PCV20 (Prevnar 20) 2022-12-12 00:00:00 Completed [facility] Pneumococcal 20 Conjugate, PCV20 (Prevnar 20) 2022-12-12 00:00:00 Completed [facility] Pneumococcal 20 Conjugate, PCV20 (Prevnar 20) 2022-12-12 00:00:00 Completed [facility] Pneumococcal 20 Conjugate, PCV20 (Prevnar 20) 2022-12-12 00:00:00 Completed [facility] Pneumococcal 20 Conjugate, PCV20 (Prevnar 20) 2022-12-12 00:00:00 Completed [facility] Pneumococcal 20 Conjugate, PCV20 (Prevnar 20) 2022-12-12 00:00:00 Completed [facility] Pneumococcal 20 Conjugate, PCV20 (Prevnar 20) 2022-12-12 00:00:00 Completed [facility] Pneumococcal 20 Conjugate, PCV20 (Prevnar 20) 2022-12-12 00:00:00 Completed [facility] Pneumococcal 20 Conjugate, PCV20 (Prevnar 20) 2022-12-12 00:00:00 Completed [facility] Pneumococcal 20 Conjugate, PCV20 (Prevnar 20) 2022-12-12 00:00:00 Completed [facility] Pneumococcal 20 Conjugate, PCV20 (Prevnar 20) 2022-12-12 00:00:00 Completed [facility] Pneumococcal 20 Conjugate, PCV20 (Prevnar 20) 2022-12-12 00:00:00 Completed [facility] Pneumococcal 20 Conjugate, PCV20 (Prevnar 20) 2022-12-12 00:00:00 Completed [facility] Pneumococcal 20 Conjugate, PCV20 (Prevnar 20) 2022-12-12 00:00:00 Completed [facility] Pneumococcal 20 Conjugate, PCV20 (Prevnar 20) 2022-12-12 00:00:00 Completed [facility] Pneumococcal 20 Conjugate, PCV20 (Prevnar 20) 2022-12-12 00:00:00 Completed [facility] Pneumococcal 20 Conjugate, PCV20 (Prevnar 20) 2022-12-12 00:00:00 Completed [facility] Pneumococcal 20 Conjugate, PCV20 (Prevnar 20) 2022-12-12 00:00:00 Completed [facility] Pneumococcal 20 Conjugate, PCV20 (Prevnar 20) 2022-12-12 00:00:00 Completed [facility] SARS-COV-2 COVID-19 MODERNA 12+ YRS VACCINE 2020-11-23 00:00:00 Completed [facility] SARS-COV-2 COVID-19 MODERNA VACCINE 2020-11-23 00:00:00 Completed [facility] SARS-COV-2 COVID-19 MODERNA 12+ YRS VACCINE 2020-11-23 00:00:00 Completed [facility] SARS-COV-2 COVID-19 MODERNA 12+ YRS VACCINE 2020-11-23 00:00:00 [facility] [facility] SARS-COV-2 COVID-19 MODERNA 12+ YRS VACCINE 2020-11-23 00:00:00 Completed [facility] SARS-COV-2 COVID-19 MODERNA 12+ YRS VACCINE 2020-11-23 00:00:00 Completed [facility] SARS-COV-2 COVID-19 MODERNA 12+ YRS VACCINE 2020-11-23 00:00:00 Completed [facility] SARS-COV-2 COVID-19 MODERNA VACCINE 2020-11-23 00:00:00 Completed [facility] SARS-COV-2 COVID-19 MODERNA 12+ YRS VACCINE 2020-11-23 00:00:00 Completed [facility] SARS-COV-2 COVID-19 MODERNA 12+ YRS VACCINE 2020-11-23 00:00:00 Completed [facility] SARS-COV-2 COVID-19 MODERNA 12+ YRS VACCINE 2020-11-23 00:00:00 Completed [facility] SARS-COV-2 COVID-19 MODERNA 12+ YRS VACCINE 2020-11-23 00:00:00 Completed [facility] SARS-COV-2 COVID-19 MODERNA 12+ YRS VACCINE 2020-11-23 00:00:00 Completed [facility] SARS-COV-2 COVID-19 MODERNA 12+ YRS VACCINE 2020-11-23 00:00:00 Completed [facility] SARS-COV-2 COVID-19 MODERNA VACCINE 2020-11-23 00:00:00 Completed [facility] SARS-COV-2 COVID-19 MODERNA 12+ YRS VACCINE 2020-11-23 00:00:00 Completed [facility] SARS-COV-2 COVID-19 MODERNA 12+ YRS VACCINE 2020-11-23 00:00:00 Completed [facility] SARS-COV-2 COVID-19 MODERNA 12+ YRS VACCINE 2020-11-23 00:00:00 Completed [facility] SARS-COV-2 COVID-19 MODERNA 12+ YRS VACCINE 2020-11-23 00:00:00 Completed [facility] SARS-COV-2 COVID-19 MODERNA 12+ YRS VACCINE 2020-11-23 00:00:00 Completed [facility] SARS-COV-2 COVID-19 MODERNA 12+ YRS VACCINE 2020-11-23 00:00:00 Completed [facility] SARS-COV-2 COVID-19 MODERNA 12+ YRS VACCINE 2020-11-23 00:00:00 Completed [facility] SARS-COV-2 COVID-19 MODERNA 12+ YRS VACCINE 2020-11-23 00:00:00 Completed [facility] SARS-COV-2 COVID-19 MODERNA 12+ YRS VACCINE 2020-11-23 00:00:00 Completed [facility] SARS-COV-2 COVID-19 MODERNA 12+ YRS VACCINE 2020-11-23 00:00:00 Completed [facility] SARS-COV-2 COVID-19 MODERNA 12+ YRS VACCINE 2020-11-23 00:00:00 Completed [facility] SARS-COV-2 COVID-19 MODERNA 12+ YRS VACCINE 2020-11-23 00:00:00 Completed [facility] SARS-COV-2 COVID-19 MODERNA 12+ YRS VACCINE 2020-11-23 00:00:00 Completed [facility] SARS-COV-2 COVID-19 MODERNA 12+ YRS VACCINE 2020-11-23 00:00:00 Completed [facility] SARS-COV-2 COVID-19 MODERNA 12+ YRS VACCINE 2020-11-23 00:00:00 Completed [facility] SARS-COV-2 COVID-19 MODERNA 12+ YRS VACCINE 2020-11-23 00:00:00 Completed [facility] SARS-COV-2 COVID-19 MODERNA 12+ YRS VACCINE 2020-11-23 00:00:00 Completed [facility] SARS-COV-2 COVID-19 MODERNA 12+ YRS VACCINE 2020-11-23 00:00:00 Completed [facility] SARS-COV-2 COVID-19 MODERNA 12+ YRS VACCINE 2020-11-23 00:00:00 Completed [facility] SARS-COV-2 COVID-19 MODERNA VACCINE 2020-11-23 00:00:00 Completed [facility] SARS-COV-2 COVID-19 MODERNA 12+ YRS VACCINE 2020-11-23 00:00:00 Completed [facility] SARS-COV-2 COVID-19 MODERNA 12+ YRS VACCINE 2020-11-23 00:00:00 Completed [facility] SARS-COV-2 COVID-19 MODERNA 12+ YRS VACCINE 2020-11-23 00:00:00 Completed [facility] SARS-COV-2 COVID-19 MODERNA 12+ YRS VACCINE 2020-11-23 00:00:00 Completed [facility] SARS-COV-2 COVID-19 MODERNA 12+ YRS VACCINE 2020-11-23 00:00:00 Completed [facility] SARS-COV-2 COVID-19 MODERNA VACCINE 2020-11-23 00:00:00 Completed [facility] SARS-COV-2 COVID-19 MODERNA 12+ YRS VACCINE 2020-11-23 00:00:00 Completed [facility] SARS-COV-2 COVID-19 MODERNA 12+ YRS VACCINE 2020-11-23 00:00:00 Completed [facility] SARS-COV-2 COVID-19 MODERNA 12+ YRS VACCINE 2020-11-23 00:00:00 Completed [facility] SARS-COV-2 COVID-19 MODERNA 12+ YRS VACCINE 2020-11-23 00:00:00 Completed [facility] SARS-COV-2 COVID-19 MODERNA 12+ YRS VACCINE 2020-11-23 00:00:00 Completed [facility] SARS-COV-2 COVID-19 MODERNA VACCINE 2020-11-23 00:00:00 Completed [facility] SARS-COV-2 COVID-19 MODERNA VACCINE 2020-11-23 00:00:00 Completed [facility] SARS-COV-2 COVID-19 MODERNA VACCINE 2020-11-23 00:00:00 Completed [facility] SARS-COV-2 COVID-19 MODERNA VACCINE 2020-11-23 00:00:00 Completed [facility] SARS-COV-2 COVID-19 MODERNA VACCINE 2020-11-23 00:00:00 Completed [facility] SARS-COV-2 COVID-19 MODERNA VACCINE 2020-11-23 00:00:00 Completed [facility] SARS-COV-2 COVID-19 MODERNA VACCINE 2020-11-23 00:00:00 Completed [facility] SARS-COV-2 COVID-19 MODERNA VACCINE 2020-11-23 00:00:00 Completed [facility] SARS-COV-2 COVID-19 MODERNA VACCINE 2020-11-23 00:00:00 Completed [facility] SARS-COV-2 COVID-19 MODERNA VACCINE 2020-11-23 00:00:00 Completed [facility] SARS-COV-2 COVID-19 MODERNA VACCINE 2020-11-23 00:00:00 Completed [facility] SARS-COV-2 COVID-19 MODERNA VACCINE 2020-11-23 00:00:00 Completed [facility] SARS-COV-2 COVID-19 MODERNA VACCINE 2020-11-23 00:00:00 Completed [facility] SARS-COV-2 COVID-19 MODERNA VACCINE 2020-11-23 00:00:00 Completed [facility] SARS-COV-2 COVID-19 MODERNA 12+ YRS VACCINE 2020-11-23 00:00:00 Completed [facility] SARS-COV-2 COVID-19 MODERNA 12+ YRS VACCINE 2020-11-23 00:00:00 Completed [facility] SARS-COV-2 COVID-19 MODERNA 12+ YRS VACCINE 2020-11-23 00:00:00 Completed [facility] SARS-COV-2 COVID-19 MODERNA 12+ YRS VACCINE 2020-11-23 00:00:00 Completed [facility] SARS-COV-2 COVID-19 MODERNA VACCINE 2020-11-23 00:00:00 Completed [facility] SARS-COV-2 COVID-19 MODERNA 12+ YRS VACCINE 2020-11-23 00:00:00 Completed [facility] SARS-COV-2 COVID-19 MODERNA 12+ YRS VACCINE 2020-11-23 00:00:00 Completed [facility] SARS-COV-2 COVID-19 MODERNA 12+ YRS VACCINE 2020-11-23 00:00:00 Completed [facility] SARS-COV-2 COVID-19 MODERNA VACCINE 2020-10-26 00:00:00 Completed [facility] SARS-COV-2 COVID-19 MODERNA 12+ YRS VACCINE 2020-10-26 00:00:00 Completed [facility] SARS-COV-2 COVID-19 MODERNA 12+ YRS VACCINE 2020-10-26 00:00:00 Completed [facility] SARS-COV-2 COVID-19 MODERNA 12+ YRS VACCINE 2020-10-26 00:00:00 Completed [facility] SARS-COV-2 COVID-19 MODERNA 12+ YRS VACCINE 2020-10-26 00:00:00 Completed [facility] SARS-COV-2 COVID-19 MODERNA 12+ YRS VACCINE 2020-10-26 00:00:00 Completed [facility] SARS-COV-2 COVID-19 MODERNA VACCINE 2020-10-26 00:00:00 Completed [facility] SARS-COV-2 COVID-19 MODERNA 12+ YRS VACCINE 2020-10-26 00:00:00 Completed [facility] SARS-COV-2 COVID-19 MODERNA 12+ YRS VACCINE 2020-10-26 00:00:00 Completed [facility] SARS-COV-2 COVID-19 MODERNA 12+ YRS VACCINE 2020-10-26 00:00:00 Completed [facility] SARS-COV-2 COVID-19 MODERNA 12+ YRS VACCINE 2020-10-26 00:00:00 Completed [facility] SARS-COV-2 COVID-19 MODERNA 12+ YRS VACCINE 2020-10-26 00:00:00 Completed [facility] SARS-COV-2 COVID-19 MODERNA 12+ YRS VACCINE 2020-10-26 00:00:00 Completed [facility] SARS-COV-2 COVID-19 MODERNA 12+ YRS VACCINE 2020-10-26 00:00:00 Completed [facility] SARS-COV-2 COVID-19 MODERNA VACCINE 2020-10-26 00:00:00 Completed [facility] SARS-COV-2 COVID-19 MODERNA 12+ YRS VACCINE 2020-10-26 00:00:00 Completed [facility] SARS-COV-2 COVID-19 MODERNA 12+ YRS VACCINE 2020-10-26 00:00:00 Completed [facility] SARS-COV-2 COVID-19 MODERNA 12+ YRS VACCINE 2020-10-26 00:00:00 Completed [facility] SARS-COV-2 COVID-19 MODERNA 12+ YRS VACCINE 2020-10-26 00:00:00 Completed [facility] SARS-COV-2 COVID-19 MODERNA 12+ YRS VACCINE 2020-10-26 00:00:00 Completed [facility] SARS-COV-2 COVID-19 MODERNA 12+ YRS VACCINE 2020-10-26 00:00:00 Completed [facility] SARS-COV-2 COVID-19 MODERNA 12+ YRS VACCINE 2020-10-26 00:00:00 Completed [facility] SARS-COV-2 COVID-19 MODERNA 12+ YRS VACCINE 2020-10-26 00:00:00 Completed [facility] SARS-COV-2 COVID-19 MODERNA 12+ YRS VACCINE 2020-10-26 00:00:00 Completed [facility] SARS-COV-2 COVID-19 MODERNA 12+ YRS VACCINE 2020-10-26 00:00:00 Completed [facility] SARS-COV-2 COVID-19 MODERNA 12+ YRS VACCINE 2020-10-26 00:00:00 Completed [facility] SARS-COV-2 COVID-19 MODERNA 12+ YRS VACCINE 2020-10-26 00:00:00 Completed [facility] SARS-COV-2 COVID-19 MODERNA 12+ YRS VACCINE 2020-10-26 00:00:00 Completed [facility] SARS-COV-2 COVID-19 MODERNA 12+ YRS VACCINE 2020-10-26 00:00:00 Completed [facility] SARS-COV-2 COVID-19 MODERNA 12+ YRS VACCINE 2020-10-26 00:00:00 Completed [facility] SARS-COV-2 COVID-19 MODERNA 12+ YRS VACCINE 2020-10-26 00:00:00 Completed [facility] SARS-COV-2 COVID-19 MODERNA 12+ YRS VACCINE 2020-10-26 00:00:00 Completed [facility] SARS-COV-2 COVID-19 MODERNA 12+ YRS VACCINE 2020-10-26 00:00:00 Completed [facility] SARS-COV-2 COVID-19 MODERNA 12+ YRS VACCINE 2020-10-26 00:00:00 Completed [facility] SARS-COV-2 COVID-19 MODERNA VACCINE 2020-10-26 00:00:00 Completed [facility] SARS-COV-2 COVID-19 MODERNA 12+ YRS VACCINE 2020-10-26 00:00:00 Completed [facility] SARS-COV-2 COVID-19 MODERNA 12+ YRS VACCINE 2020-10-26 00:00:00 Completed [facility] SARS-COV-2 COVID-19 MODERNA 12+ YRS VACCINE 2020-10-26 00:00:00 Completed [facility] SARS-COV-2 COVID-19 MODERNA 12+ YRS VACCINE 2020-10-26 00:00:00 Completed [facility] SARS-COV-2 COVID-19 MODERNA 12+ YRS VACCINE 2020-10-26 00:00:00 Completed [facility] SARS-COV-2 COVID-19 MODERNA VACCINE 2020-10-26 00:00:00 Completed [facility] SARS-COV-2 COVID-19 MODERNA 12+ YRS VACCINE 2020-10-26 00:00:00 Completed [facility] SARS-COV-2 COVID-19 MODERNA 12+ YRS VACCINE 2020-10-26 00:00:00 Completed [facility] SARS-COV-2 COVID-19 MODERNA 12+ YRS VACCINE 2020-10-26 00:00:00 Completed [facility] SARS-COV-2 COVID-19 MODERNA 12+ YRS VACCINE 2020-10-26 00:00:00 Completed [facility] SARS-COV-2 COVID-19 MODERNA 12+ YRS VACCINE 2020-10-26 00:00:00 Completed [facility] SARS-COV-2 COVID-19 MODERNA VACCINE 2020-10-26 00:00:00 Completed [facility] SARS-COV-2 COVID-19 MODERNA VACCINE 2020-10-26 00:00:00 Completed [facility] SARS-COV-2 COVID-19 MODERNA VACCINE 2020-10-26 00:00:00 Completed [facility] SARS-COV-2 COVID-19 MODERNA VACCINE 2020-10-26 00:00:00 Completed [facility] SARS-COV-2 COVID-19 MODERNA VACCINE 2020-10-26 00:00:00 Completed [facility] SARS-COV-2 COVID-19 MODERNA VACCINE 2020-10-26 00:00:00 Completed [facility] SARS-COV-2 COVID-19 MODERNA VACCINE 2020-10-26 00:00:00 Completed [facility] SARS-COV-2 COVID-19 MODERNA VACCINE 2020-10-26 00:00:00 Completed [facility] SARS-COV-2 COVID-19 MODERNA VACCINE 2020-10-26 00:00:00 Completed [facility] SARS-COV-2 COVID-19 MODERNA VACCINE 2020-10-26 00:00:00 Completed [facility] SARS-COV-2 COVID-19 MODERNA VACCINE 2020-10-26 00:00:00 Completed [facility] SARS-COV-2 COVID-19 MODERNA VACCINE 2020-10-26 00:00:00 Completed [facility] SARS-COV-2 COVID-19 MODERNA VACCINE 2020-10-26 00:00:00 Completed [facility] SARS-COV-2 COVID-19 MODERNA VACCINE 2020-10-26 00:00:00 Completed [facility] SARS-COV-2 COVID-19 MODERNA 12+ YRS VACCINE 2020-10-26 00:00:00 Completed [facility] SARS-COV-2 COVID-19 MODERNA 12+ YRS VACCINE 2020-10-26 00:00:00 Completed [facility] SARS-COV-2 COVID-19 MODERNA 12+ YRS VACCINE 2020-10-26 00:00:00 Completed [facility] SARS-COV-2 COVID-19 MODERNA 12+ YRS VACCINE 2020-10-26 00:00:00 Completed [facility] SARS-COV-2 COVID-19 MODERNA VACCINE 2020-10-26 00:00:00 Completed [facility] SARS-COV-2 COVID-19 MODERNA 12+ YRS VACCINE 2020-10-26 00:00:00 Completed [facility] SARS-COV-2 COVID-19 MODERNA 12+ YRS VACCINE 2020-10-26 00:00:00 Completed [facility] SARS-COV-2 COVID-19 MODERNA 12+ YRS VACCINE 2020-10-26 00:00:00 Completed [facility] Td 2019-02-16 00:00:00 Completed [facility] TD, NOS 2019-02-16 00:00:00 Completed [facility] TD, NOS 2019-02-16 00:00:00 Completed [facility] TD, NOS 2019-02-16 00:00:00 Completed [facility] TD, NOS 2019-02-16 00:00:00 Completed [facility] TD, NOS 2019-02-16 00:00:00 Completed [facility] Td 2019-02-16 00:00:00 Completed [facility] TD, NOS 2019-02-16 00:00:00 Completed [facility] TD, NOS 2019-02-16 00:00:00 Completed [facility] TD, NOS 2019-02-16 00:00:00 Completed [facility] TD, NOS 2019-02-16 00:00:00 Completed [facility] TD, NOS 2019-02-16 00:00:00 Completed [facility] TD, NOS 2019-02-16 00:00:00 Completed [facility] TD, NOS 2019-02-16 00:00:00 Completed [facility] Td 2019-02-16 00:00:00 Completed [facility] TD, NOS 2019-02-16 00:00:00 Completed [facility] TD, NOS 2019-02-16 00:00:00 Completed [facility] TD, NOS 2019-02-16 00:00:00 Completed [facility] TD, NOS 2019-02-16 00:00:00 Completed [facility] Td 2019-02-16 00:00:00 Completed [facility] TD, NOS 2019-02-16 00:00:00 Completed [facility] TD, NOS 2019-02-16 00:00:00 Completed [facility] TD, NOS 2019-02-16 00:00:00 Completed [facility] TD, NOS 2019-02-16 00:00:00 Completed [facility] Td 2019-02-16 00:00:00 Completed [facility] TD, NOS 2019-02-16 00:00:00 Completed [facility] TD, NOS 2019-02-16 00:00:00 Completed [facility] TD, NOS 2019-02-16 00:00:00 Completed [facility] TD, NOS 2019-02-16 00:00:00 Completed [facility] TD, NOS 2019-02-16 00:00:00 Completed [facility] TD, NOS 2019-02-16 00:00:00 Completed [facility] TD, NOS 2019-02-16 00:00:00 Completed [facility] Td 2019-02-16 00:00:00 Completed [facility] TD, NOS 2019-02-16 00:00:00 Completed [facility] TD, NOS 2019-02-16 00:00:00 Completed [facility] TD, NOS 2019-02-16 00:00:00 Completed [facility] TD, NOS 2019-02-16 00:00:00 Completed [facility] Td 2019-02-16 00:00:00 Completed [facility] TD, NOS 2019-02-16 00:00:00 Completed [facility] TD, NOS 2019-02-16 00:00:00 Completed [facility] TD, NOS 2019-02-16 00:00:00 Completed [facility] TD, NOS 2019-02-16 00:00:00 Completed [facility] Td 2019-02-16 00:00:00 Completed [facility] TD, NOS 2019-02-16 00:00:00 Completed [facility] TD, NOS 2019-02-16 00:00:00 Completed [facility] TD, NOS 2019-02-16 00:00:00 Completed [facility] TD, NOS 2019-02-16 00:00:00 Completed [facility] TD, NOS 2019-02-16 00:00:00 Completed [facility] TD, NOS 2019-02-16 00:00:00 Completed [facility] Td 2019-02-16 00:00:00 Completed [facility] Td 2019-02-16 00:00:00 Completed [facility] Td 2019-02-16 00:00:00 Completed [facility] Td 2019-02-16 00:00:00 Completed [facility] Td 2019-02-16 00:00:00 Completed [facility] Td 2019-02-16 00:00:00 Completed [facility] Td 2019-02-16 00:00:00 Completed [facility] Td 2019-02-16 00:00:00 Completed [facility] Td 2019-02-16 00:00:00 Completed [facility] Td 2019-02-16 00:00:00 Completed [facility] Td 2019-02-16 00:00:00 Completed [facility] Td 2019-02-16 00:00:00 Completed [facility] Td 2019-02-16 00:00:00 Completed [facility] Td 2019-02-16 00:00:00 Completed [facility] TD, NOS 2019-02-16 00:00:00 Completed [facility] TD, NOS 2019-02-16 00:00:00 Completed [facility] TD, NOS 2019-02-16 00:00:00 Completed [facility] TD, NOS 2019-02-16 00:00:00 Completed [facility] Td 2019-02-16 00:00:00 Completed [facility] TD, NOS 2019-02-16 00:00:00 Completed [facility] TD, NOS 2019-02-16 00:00:00 Completed [facility] TD, NOS 2019-02-16 00:00:00 Completed [facility] Pneumococcal Polysaccharide, PPSV23 (PNEUMOVAX) 2014-09-05 00:00:00 Completed [facility] Influenza Virus Vaccine Quad IM 3+ YRS 2014-09-05 00:00:00 Completed [facility] Pneumococcal Polysaccharide, PPSV23 (PNEUMOVAX) 2014-09-05 00:00:00 Completed [facility] Influenza Virus Vaccine Quad IM 3+ YRS 2014-09-05 00:00:00 Completed [facility] Pneumococcal Polysaccharide, PPSV23 (PNEUMOVAX) 2014-09-05 00:00:00 Completed [facility] Influenza Virus Vaccine Quad IM 3+ YRS 2014-09-05 00:00:00 Completed [facility] Pneumococcal Polysaccharide, PPSV23 (PNEUMOVAX) 2014-09-05 00:00:00 Completed [facility] Influenza Virus Vaccine Quad IM 3+ YRS 2014-09-05 00:00:00 Completed [facility] Pneumococcal Polysaccharide, PPSV23 (PNEUMOVAX) 2014-09-05 00:00:00 Completed [facility] Influenza Virus Vaccine Quad IM 3+ YRS 2014-09-05 00:00:00 Completed [facility] Pneumococcal Polysaccharide, PPSV23 (PNEUMOVAX) 2014-09-05 00:00:00 Completed [facility] Influenza Virus Vaccine Quad IM 3+ YRS 2014-09-05 00:00:00 Completed [facility] Pneumococcal Polysaccharide, PPSV23 (PNEUMOVAX) 2014-09-05 00:00:00 Completed [facility] Influenza Virus Vaccine Quad IM 3+ YRS 2014-09-05 00:00:00 Completed [facility] Pneumococcal Polysaccharide, PPSV23 (PNEUMOVAX) 2014-09-05 00:00:00 Completed [facility] Influenza Virus Vaccine Quad IM 3+ YRS 2014-09-05 00:00:00 Completed [facility] Pneumococcal Polysaccharide, PPSV23 (PNEUMOVAX) 2014-09-05 00:00:00 Completed [facility] Influenza Virus Vaccine Quad IM 3+ YRS 2014-09-05 00:00:00 Completed [facility] Pneumococcal Polysaccharide, PPSV23 (PNEUMOVAX) 2014-09-05 00:00:00 Completed [facility] Influenza Virus Vaccine Quad IM 3+ YRS 2014-09-05 00:00:00 Completed [facility] Pneumococcal Polysaccharide, PPSV23 (PNEUMOVAX) 2014-09-05 00:00:00 Completed [facility] Influenza Virus Vaccine Quad IM 3+ YRS 2014-09-05 00:00:00 Completed [facility] Pneumococcal Polysaccharide, PPSV23 (PNEUMOVAX) 2014-09-05 00:00:00 Completed [facility] Influenza Virus Vaccine Quad IM 3+ YRS 2014-09-05 00:00:00 Completed [facility] Pneumococcal Polysaccharide, PPSV23 (PNEUMOVAX) 2014-09-05 00:00:00 Completed [facility] Influenza Virus Vaccine Quad IM 3+ YRS 2014-09-05 00:00:00 Completed [facility] Influenza Virus Vaccine Quad IM 3+ YRS 2014-09-05 00:00:00 Completed [facility] Pneumococcal Polysaccharide, PPSV23 (PNEUMOVAX) 2014-09-05 00:00:00 Completed [facility] Pneumococcal Polysaccharide, PPSV23 (PNEUMOVAX) 2014-09-05 00:00:00 Completed [facility] Influenza Virus Vaccine Quad IM 3+ YRS 2014-09-05 00:00:00 Completed [facility] Pneumococcal Polysaccharide, PPSV23 (PNEUMOVAX) 2014-09-05 00:00:00 Completed [facility] Influenza Virus Vaccine Quad IM 3+ YRS 2014-09-05 00:00:00 Completed [facility] Pneumococcal Polysaccharide, PPSV23 (PNEUMOVAX) 2014-09-05 00:00:00 Completed [facility] Influenza Virus Vaccine Quad IM 3+ YRS 2014-09-05 00:00:00 Completed [facility] Pneumococcal Polysaccharide, PPSV23 (PNEUMOVAX) 2014-09-05 00:00:00 Completed [facility] Influenza Virus Vaccine Quad IM 3+ YRS 2014-09-05 00:00:00 Completed [facility] Pneumococcal Polysaccharide, PPSV23 (PNEUMOVAX) 2014-09-05 00:00:00 Completed [facility] Influenza Virus Vaccine Quad IM 3+ YRS 2014-09-05 00:00:00 Completed [facility] Pneumococcal Polysaccharide, PPSV23 (PNEUMOVAX) 2014-09-05 00:00:00 Completed [facility] Influenza Virus Vaccine Quad IM 3+ YRS 2014-09-05 00:00:00 Completed [facility] Pneumococcal Polysaccharide, PPSV23 (PNEUMOVAX) 2014-09-05 00:00:00 Completed [facility] Influenza Virus Vaccine Quad IM 3+ YRS 2014-09-05 00:00:00 Completed [facility] Pneumococcal Polysaccharide, PPSV23 (PNEUMOVAX) 2014-09-05 00:00:00 Completed [facility] Influenza Virus Vaccine Quad IM 3+ YRS 2014-09-05 00:00:00 Completed [facility] Pneumococcal Polysaccharide, PPSV23 (PNEUMOVAX) 2014-09-05 00:00:00 Completed [facility] Influenza Virus Vaccine Quad IM 3+ YRS 2014-09-05 00:00:00 Completed [facility] Pneumococcal Polysaccharide, PPSV23 (PNEUMOVAX) 2014-09-05 00:00:00 Completed [facility] Influenza Virus Vaccine Quad IM 3+ YRS 2014-09-05 00:00:00 Completed [facility] Pneumococcal Polysaccharide, PPSV23 (PNEUMOVAX) 2014-09-05 00:00:00 Completed [facility] Influenza Virus Vaccine Quad IM 3+ YRS 2014-09-05 00:00:00 Completed [facility] Pneumococcal Polysaccharide, PPSV23 (PNEUMOVAX) 2014-09-05 00:00:00 Completed [facility] Influenza Virus Vaccine Quad IM 3+ YRS 2014-09-05 00:00:00 Completed [facility] Pneumococcal Polysaccharide, PPSV23 (PNEUMOVAX) 2014-09-05 00:00:00 Completed [facility] Influenza Virus Vaccine Quad IM 3+ YRS 2014-09-05 00:00:00 Completed [facility] Pneumococcal Polysaccharide, PPSV23 (PNEUMOVAX) 2014-09-05 00:00:00 Completed [facility] Influenza Virus Vaccine Quad IM 3+ YRS 2014-09-05 00:00:00 Completed [facility] Pneumococcal Polysaccharide, PPSV23 (PNEUMOVAX) 2014-09-05 00:00:00 Completed [facility] Influenza Virus Vaccine Quad IM 3+ YRS 2014-09-05 00:00:00 Completed [facility] Pneumococcal Polysaccharide, PPSV23 (PNEUMOVAX) 2014-09-05 00:00:00 Completed [facility] Influenza Virus Vaccine Quad IM 3+ YRS 2014-09-05 00:00:00 Completed [facility] Pneumococcal Polysaccharide, PPSV23 (PNEUMOVAX) 2014-09-05 00:00:00 Completed [facility] Influenza Virus Vaccine Quad IM 3+ YRS 2014-09-05 00:00:00 Completed [facility] Influenza Virus Vaccine Quad IM 3+ YRS 2014-09-05 00:00:00 Completed [facility] Pneumococcal Polysaccharide, PPSV23 (PNEUMOVAX) 2014-09-05 00:00:00 Completed [facility] Pneumococcal Polysaccharide, PPSV23 (PNEUMOVAX) 2014-09-05 00:00:00 Completed [facility] Influenza Virus Vaccine Quad IM 3+ YRS 2014-09-05 00:00:00 Completed [facility] Pneumococcal Polysaccharide, PPSV23 (PNEUMOVAX) 2014-09-05 00:00:00 Completed [facility] Influenza Virus Vaccine Quad IM 3+ YRS 2014-09-05 00:00:00 Completed [facility] Pneumococcal Polysaccharide, PPSV23 (PNEUMOVAX) 2014-09-05 00:00:00 Completed [facility] Influenza Virus Vaccine Quad IM 3+ YRS 2014-09-05 00:00:00 Completed [facility] Pneumococcal Polysaccharide, PPSV23 (PNEUMOVAX) 2014-09-05 00:00:00 Completed [facility] Influenza Virus Vaccine Quad IM 3+ YRS 2014-09-05 00:00:00 Completed [facility] Pneumococcal Polysaccharide, PPSV23 (PNEUMOVAX) 2014-09-05 00:00:00 Completed [facility] Influenza Virus Vaccine Quad IM 3+ YRS 2014-09-05 00:00:00 Completed [facility] Pneumococcal Polysaccharide, PPSV23 (PNEUMOVAX) 2014-09-05 00:00:00 Completed [facility] Influenza Virus Vaccine Quad IM 3+ YRS 2014-09-05 00:00:00 Completed [facility] Pneumococcal Polysaccharide, PPSV23 (PNEUMOVAX) 2014-09-05 00:00:00 Completed [facility] Influenza Virus Vaccine Quad IM 3+ YRS 2014-09-05 00:00:00 Completed [facility] Pneumococcal Polysaccharide, PPSV23 (PNEUMOVAX) 2014-09-05 00:00:00 Completed [facility] Influenza Virus Vaccine Quad IM 3+ YRS 2014-09-05 00:00:00 Completed [facility] Pneumococcal Polysaccharide, PPSV23 (PNEUMOVAX) 2014-09-05 00:00:00 Completed [facility] Influenza Virus Vaccine Quad IM 3+ YRS 2014-09-05 00:00:00 Completed [facility] Pneumococcal Polysaccharide, PPSV23 (PNEUMOVAX) 2014-09-05 00:00:00 Completed [facility] Influenza Virus Vaccine Quad IM 3+ YRS 2014-09-05 00:00:00 Completed [facility] Pneumococcal Polysaccharide, PPSV23 (PNEUMOVAX) 2014-09-05 00:00:00 Completed [facility] Influenza Virus Vaccine Quad IM 3+ YRS 2014-09-05 00:00:00 Completed [facility] Pneumococcal Polysaccharide, PPSV23 (PNEUMOVAX) 2014-09-05 00:00:00 Completed [facility] Influenza Virus Vaccine Quad IM 3+ YRS 2014-09-05 00:00:00 Completed [facility] Pneumococcal Polysaccharide, PPSV23 (PNEUMOVAX) 2014-09-05 00:00:00 Completed [facility] Influenza Virus Vaccine Quad IM 3+ YRS 2014-09-05 00:00:00 Completed [facility] Pneumococcal Polysaccharide, PPSV23 (PNEUMOVAX) 2014-09-05 00:00:00 Completed [facility] Influenza Virus Vaccine Quad IM 3+ YRS 2014-09-05 00:00:00 Completed [facility] Pneumococcal Polysaccharide, PPSV23 (PNEUMOVAX) 2014-09-05 00:00:00 Completed [facility] Influenza Virus Vaccine Quad IM 3+ YRS 2014-09-05 00:00:00 Completed [facility] Pneumococcal Polysaccharide, PPSV23 (PNEUMOVAX) 2014-09-05 00:00:00 Completed [facility] Influenza Virus Vaccine Quad IM 3+ YRS 2014-09-05 00:00:00 Completed [facility] Pneumococcal Polysaccharide, PPSV23 (PNEUMOVAX) 2014-09-05 00:00:00 Completed [facility] Influenza Virus Vaccine Quad IM 3+ YRS 2014-09-05 00:00:00 Completed [facility] Pneumococcal Polysaccharide, PPSV23 (PNEUMOVAX) 2014-09-05 00:00:00 Completed [facility] Influenza Virus Vaccine Quad IM 3+ YRS 2014-09-05 00:00:00 Completed [facility] Pneumococcal Polysaccharide, PPSV23 (PNEUMOVAX) 2014-09-05 00:00:00 Completed [facility] Influenza Virus Vaccine Quad IM 3+ YRS 2014-09-05 00:00:00 Completed [facility] Pneumococcal Polysaccharide, PPSV23 (PNEUMOVAX) 2014-09-05 00:00:00 Completed [facility] Influenza Virus Vaccine Quad IM 3+ YRS 2014-09-05 00:00:00 Completed [facility] Pneumococcal Polysaccharide, PPSV23 (PNEUMOVAX) 2014-09-05 00:00:00 Completed [facility] Influenza Virus Vaccine Quad IM 3+ YRS 2014-09-05 00:00:00 Completed [facility] Pneumococcal Polysaccharide, PPSV23 (PNEUMOVAX) 2014-09-05 00:00:00 Completed [facility] Influenza Virus Vaccine Quad IM 3+ YRS 2014-09-05 00:00:00 Completed [facility] Pneumococcal Polysaccharide, PPSV23 (PNEUMOVAX) 2014-09-05 00:00:00 Completed [facility] Influenza Virus Vaccine Quad IM 3+ YRS 2014-09-05 00:00:00 Completed [facility] Pneumococcal Polysaccharide, PPSV23 (PNEUMOVAX) 2014-09-05 00:00:00 Completed [facility] Influenza Virus Vaccine Quad IM 3+ YRS 2014-09-05 00:00:00 Completed [facility] Pneumococcal Polysaccharide, PPSV23 (PNEUMOVAX) 2014-09-05 00:00:00 Completed [facility] Influenza Virus Vaccine Quad IM 3+ YRS 2014-09-05 00:00:00 Completed [facility] Pneumococcal Polysaccharide, PPSV23 (PNEUMOVAX) 2014-09-05 00:00:00 Completed [facility] Influenza Virus Vaccine Quad IM 3+ YRS 2014-09-05 00:00:00 Completed [facility] Pneumococcal Polysaccharide, PPSV23 (PNEUMOVAX) 2014-09-05 00:00:00 Completed [facility] Influenza Virus Vaccine Quad IM 3+ YRS 2014-09-05 00:00:00 Completed [facility] Pneumococcal Polysaccharide, PPSV23 (PNEUMOVAX) 2014-09-05 00:00:00 Completed [facility] Influenza Virus Vaccine Quad IM 3+ YRS 2014-09-05 00:00:00 Completed [facility] Pneumococcal Polysaccharide, PPSV23 (PNEUMOVAX) 2014-09-05 00:00:00 Completed [facility] Influenza Virus Vaccine Quad IM 3+ YRS 2014-09-05 00:00:00 Completed [facility] Pneumococcal Polysaccharide, PPSV23 (PNEUMOVAX) 2014-09-05 00:00:00 Completed [facility] Influenza Virus Vaccine Quad IM 3+ YRS 2014-09-05 00:00:00 Completed [facility] Pneumococcal Polysaccharide, PPSV23 (PNEUMOVAX) 2014-09-05 00:00:00 Completed [facility] Influenza Virus Vaccine Quad IM 3+ YRS 2014-09-05 00:00:00 Completed [facility] Pneumococcal Polysaccharide, PPSV23 (PNEUMOVAX) 2014-09-05 00:00:00 Completed [facility] Influenza Virus Vaccine Quad IM 3+ YRS 2014-09-05 00:00:00 Completed [facility] Pneumococcal Polysaccharide, PPSV23 (PNEUMOVAX) 2014-09-05 00:00:00 Completed [facility] Influenza Virus Vaccine Quad IM 3+ YRS 2014-09-05 00:00:00 Completed [facility] Pneumococcal Polysaccharide, PPSV23 (PNEUMOVAX) 2014-09-05 00:00:00 Completed [facility] Influenza Virus Vaccine Quad IM 3+ YRS 2014-09-05 00:00:00 Completed [facility] Influenza Virus Vaccine Quad IM 3+ YRS 2014-09-05 00:00:00 Completed [facility] Pneumococcal Polysaccharide, PPSV23 (PNEUMOVAX) 2014-09-05 00:00:00 Completed [facility] Pneumococcal Polysaccharide, PPSV23 (PNEUMOVAX) 2014-09-05 00:00:00 Completed [facility] Influenza Virus Vaccine Quad IM 3+ YRS 2014-09-05 00:00:00 Completed [facility] Pneumococcal Polysaccharide, PPSV23 (PNEUMOVAX) 2014-09-05 00:00:00 Completed [facility] Influenza Virus Vaccine Quad IM 3+ YRS 2014-09-05 00:00:00 Completed [facility] Pneumococcal Polysaccharide, PPSV23 (PNEUMOVAX) 2014-09-05 00:00:00 Completed [facility] Influenza Virus Vaccine Quad IM 3+ YRS 2014-09-05 00:00:00 Completed [facility] Pneumococcal Polysaccharide, PPSV23 (PNEUMOVAX) 2014-09-05 00:00:00 Completed [facility] Influenza Virus Vaccine Quad IM 3+ YRS 2014-09-05 00:00:00 Completed [facility] Influenza Virus Vaccine Quad IM 3+ YRS Unknown Completed [facility] Pneumococcal Polysaccharide, PPSV23 (PNEUMOVAX) Unknown Completed [facility] TD, NOS Unknown Completed [facility] SARS-COV-2 COVID-19 MODERNA 12+ YRS VACCINE Unknown Completed [facility] SARS-COV-2 COVID-19 MODERNA 12+ YRS VACCINE Unknown Completed [facility] Pneumococcal 20 Conjugate, PCV20 (Prevnar 20) Unknown Completed [facility] Influenza Virus Vaccine Quad IM 3+ YRS Unknown Completed [facility] Pneumococcal Polysaccharide, PPSV23 (PNEUMOVAX) Unknown Completed [facility] TD, NOS Unknown Completed [facility] SARS-COV-2 COVID-19 MODERNA 12+ YRS VACCINE Unknown Completed [facility] SARS-COV-2 COVID-19 MODERNA 12+ YRS VACCINE Unknown Completed [facility] Pneumococcal 20 Conjugate, PCV20 (Prevnar 20) Unknown Completed [facility] Influenza Virus Vaccine Quad IM 3+ YRS Unknown Completed [facility] Pneumococcal Polysaccharide, PPSV23 (PNEUMOVAX) Unknown Completed [facility] TD, NOS Unknown Completed [facility] SARS-COV-2 COVID-19 MODERNA 12+ YRS VACCINE Unknown Completed [facility] SARS-COV-2 COVID-19 MODERNA 12+ YRS VACCINE Unknown Completed [facility] Pneumococcal 20 Conjugate, PCV20 (Prevnar 20) Unknown Completed [facility] Vital Signs Vital Name Observation Time Observation Value Comments S ource Systolic blood pressure 2023-04-19 15:37:00 126 mm[Hg] [facility] Diastolic blood pressure 2023-04-19 15:37:00 83 mm[Hg] [facility] Heart rate 2023-04-19 15:37:00 94 /min [facility] Respiratory rate 2023-04-19 15:35:00 18 /min [facility] Body height 2023-04-19 15:35:00 177.8 cm [facility] Body weight 2023-04-19 15:35:00 59.138 kg [facility] BMI 2023-04-19 15:35:00 18.71 kg/m2 [facility] Oxygen saturation in Arterial blood by Pulse oximetry 2023-04-19 15:35:00 94 /min [facility] Systolic blood pressure 2023-03-01 20:27:00 143 mm[Hg] [facility] Diastolic blood pressure 2023-03-01 20:27:00 87 mm[Hg] [facility] Heart rate 2023-03-01 20:27:00 99 /min [facility] Body height 2023-03-01 20:27:00 177.8 cm [facility] Body weight 2023-03-01 20:27:00 57.153 kg [facility] BMI 2023-03-01 20:27:00 18.08 kg/m2 [facility] Oxygen saturation in Arterial blood by Pulse oximetry 2023-03-01 20:27:00 99 /min [facility] Systolic blood pressure 2023-02-18 16:17:00 144 mm[Hg] [facility] Diastolic blood pressure 2023-02-18 16:17:00 68 mm[Hg] [facility] Heart rate 2023-02-18 16:17:00 55 /min [facility] Body temperature 2023-02-18 16:17:00 36.06 Tia [facility] Respiratory rate 2023-02-18 16:17:00 18 /min [facility] Oxygen saturation in Arterial blood by Pulse oximetry 2023-02-18 16:17:00 100 /min [facility] Body weight 2023-02-18 07:50:00 58.968 kg [facility] BMI 2023-02-18 07:50:00 18.65 kg/m2 [facility] Body height 2023-02-16 00:31:00 177.8 cm [facility] Oxygen saturation in Arterial blood by Pulse oximetry 2023-02-07 19:29:00 99 /min [facility] Systolic blood pressure 2023-02-07 19:27:00 103 mm[Hg] [facility] Diastolic blood pressure 2023-02-07 19:27:00 75 mm[Hg] [facility] Heart rate 2023-02-07 19:27:00 104 /min [facility] Body temperature 2023-02-07 19:27:00 36.39 Tia [facility] Respiratory rate 2023-02-07 19:27:00 22 /min [facility] Body weight 2023-02-07 19:27:00 72.576 kg [facility] BMI 2023-02-07 19:27:00 22.96 kg/m2 [facility] Heart rate 2023-02-05 20:17:00 85 /min [facility] Respiratory rate 2023-02-05 20:17:00 18 /min [facility] Oxygen saturation in Arterial blood by Pulse oximetry 2023-02-05 20:17:00 100 /min [facility] Systolic blood pressure 2023-02-05 19:53:35 98 mm[Hg] [facility] Diastolic blood pressure 2023-02-05 19:53:35 71 mm[Hg] [facility] Body temperature 2023-02-05 19:51:00 36.5 Tia [facility] Body height 2023-02-05 19:51:00 177.8 cm [facility] Body weight 2023-02-05 19:51:00 72.576 kg [facility] BMI 2023-02-05 19:51:00 22.96 kg/m2 [facility] Heart rate 2023-02-04 20:31:00 76 /min [facility] Respiratory rate 2023-02-04 20:31:00 18 /min [facility] Oxygen saturation in Arterial blood by Pulse oximetry 2023-02-04 20:31:00 97 /min [facility] Systolic blood pressure 2023-02-04 20:15:00 126 mm[Hg] [facility] Diastolic blood pressure 2023-02-04 20:15:00 98 mm[Hg] [facility] Body temperature 2023-02-04 20:15:00 36.83 Tia [facility] Body weight 2023-02-04 20:15:00 72.576 kg [facility] BMI 2023-02-04 20:15:00 22.96 kg/m2 [facility] Systolic blood pressure 2023-02-03 23:00:00 100 mm[Hg] [facility] Diastolic blood pressure 2023-02-03 23:00:00 65 mm[Hg] [facility] Heart rate 2023-02-03 23:00:00 115 /min [facility] Respiratory rate 2023-02-03 23:00:00 20 /min [facility] Oxygen saturation in Arterial blood by Pulse oximetry 2023-02-03 23:00:00 97 /min [facility] Body temperature 2023-02-03 22:44:00 36.72 Tia [facility] Body weight 2023-02-03 22:44:00 72.576 kg [facility] BMI 2023-02-03 22:44:00 22.96 kg/m2 [facility] Systolic blood pressure 2023-02-03 20:02:00 128 mm[Hg] [facility] Diastolic blood pressure 2023-02-03 20:02:00 81 mm[Hg] [facility] Heart rate 2023-02-03 20:02:00 88 /min [facility] Respiratory rate 2023-02-03 20:02:00 25 /min [facility] Oxygen saturation in Arterial blood by Pulse oximetry 2023-02-03 20:02:00 94 /min [facility] Body temperature 2023-02-03 18:18:00 36.61 Tia [facility] Body weight 2023-02-03 17:41:00 72.576 kg [facility] BMI 2023-02-03 17:41:00 22.96 kg/m2 [facility] Heart rate 2023-02-02 22:49:00 107 /min [facility] Respiratory rate 2023-02-02 22:49:00 20 /min [facility] Oxygen saturation in Arterial blood by Pulse oximetry 2023-02-02 22:49:00 94 /min [facility] Systolic blood pressure 2023-02-02 22:32:00 102 mm[Hg] [facility] Diastolic blood pressure 2023-02-02 22:32:00 74 mm[Hg] [facility] Body temperature 2023-02-02 21:58:32 35.83 Tia [facility] Body height 2023-02-02 21:54:00 177.8 cm [facility] Body weight 2023-02-02 21:54:00 72.576 kg [facility] BMI 2023-02-02 21:54:00 22.96 kg/m2 [facility] Systolic blood pressure 2023-01-31 21:00:00 140 mm[Hg] [facility] Diastolic blood pressure 2023-01-31 21:00:00 72 mm[Hg] [facility] Heart rate 2023-01-31 21:00:00 89 /min [facility] Respiratory rate 2023-01-31 21:00:00 20 /min [facility] Oxygen saturation in Arterial blood by Pulse oximetry 2023-01-31 21:00:00 97 /min [facility] Body temperature 2023-01-31 18:50:00 36.72 Tia [facility] Body weight 2023-01-31 18:50:00 72.576 kg [facility] BMI 2023-01-31 18:50:00 22.96 kg/m2 [facility] Systolic blood pressure 2023-01-31 16:09:00 130 mm[Hg] [facility] Diastolic blood pressure 2023-01-31 16:09:00 72 mm[Hg] [facility] Heart rate 2023-01-31 16:09:00 99 /min [facility] Body temperature 2023-01-31 16:09:00 36.39 Tia [facility] Respiratory rate 2023-01-31 16:09:00 18 /min [facility] Body height 2023-01-31 16:09:00 177.8 cm [facility] Body weight 2023-01-31 16:09:00 72.576 kg [facility] BMI 2023-01-31 16:09:00 22.96 kg/m2 [facility] Oxygen saturation in Arterial blood by Pulse oximetry 2023-01-31 16:09:00 97 /min [facility] Systolic blood pressure 2023-01-31 14:50:00 134 mm[Hg] [facility] Diastolic blood pressure 2023-01-31 14:50:00 72 mm[Hg] [facility] Heart rate 2023-01-31 14:50:00 85 /min [facility] Body temperature 2023-01-31 14:50:00 36.39 Tia [facility] Respiratory rate 2023-01-31 14:50:00 20 /min [facility] Body weight 2023-01-31 14:50:00 72.576 kg [facility] BMI 2023-01-31 14:50:00 22.96 kg/m2 [facility] Oxygen saturation in Arterial blood by Pulse oximetry 2023-01-31 14:50:00 100 /min [facility] Respiratory rate 2023-01-29 13:40:00 20 /min [facility] Oxygen saturation in Arterial blood by Pulse oximetry 2023-01-29 13:40:00 100 /min [facility] Systolic blood pressure 2023-01-29 13:06:00 123 mm[Hg] [facility] Diastolic blood pressure 2023-01-29 13:06:00 76 mm[Hg] [facility] Heart rate 2023-01-29 13:06:00 97 /min [facility] Body temperature 2023-01-29 13:06:00 36.61 Tia [facility] Body height 2023-01-29 13:06:00 177.8 cm [facility] Body weight 2023-01-29 13:06:00 72.576 kg [facility] BMI 2023-01-29 13:06:00 22.96 kg/m2 [facility] Systolic blood pressure 2023-01-27 11:47:00 115 mm[Hg] [facility] Diastolic blood pressure 2023-01-27 11:47:00 75 mm[Hg] [facility] Heart rate 2023-01-27 11:47:00 100 /min [facility] Body temperature 2023-01-27 11:47:00 35.78 Tia [facility] Respiratory rate 2023-01-27 11:47:00 28 /min [facility] Oxygen saturation in Arterial blood by Pulse oximetry 2023-01-27 11:47:00 99 /min [facility] Body height 2023-01-27 09:57:00 177.8 cm [facility] Body weight 2023-01-27 09:57:00 72.576 kg [facility] BMI 2023-01-27 09:57:00 22.96 kg/m2 [facility] Heart rate 2023-01-24 20:55:00 88 /min [facility] Oxygen saturation in Arterial blood by Pulse oximetry 2023-01-24 20:55:00 93 /min [facility] Respiratory rate 2023-01-24 20:52:00 22 /min [facility] Systolic blood pressure 2023-01-24 20:30:00 128 mm[Hg] [facility] Diastolic blood pressure 2023-01-24 20:30:00 69 mm[Hg] [facility] Body temperature 2023-01-24 17:24:00 36.67 Tia [facility] Body height 2023-01-24 17:24:00 177.8 cm [facility] Body weight 2023-01-24 17:24:00 72.576 kg [facility] BMI 2023-01-24 17:24:00 22.96 kg/m2 [facility] Systolic blood pressure 2023-01-24 01:00:00 129 mm[Hg] [facility] Diastolic blood pressure 2023-01-24 01:00:00 76 mm[Hg] [facility] Heart rate 2023-01-24 01:00:00 77 /min [facility] Respiratory rate 2023-01-24 01:00:00 18 /min [facility] Oxygen saturation in Arterial blood by Pulse oximetry 2023-01-24 01:00:00 99 /min [facility] Body temperature 2023-01-24 00:02:00 35.61 Tia warm blankets applied [facility] Body weight 2023-01-24 00:02:00 58.968 kg [facility] BMI 2023-01-24 00:02:00 18.65 kg/m2 [facility] Heart rate 2023-01-22 23:46:00 93 /min [facility] Respiratory rate 2023-01-22 23:46:00 20 /min [facility] Oxygen saturation in Arterial blood by Pulse oximetry 2023-01-22 23:46:00 100 /min [facility] Systolic blood pressure 2023-01-22 23:21:00 146 mm[Hg] [facility] Diastolic blood pressure 2023-01-22 23:21:00 93 mm[Hg] [facility] Body temperature 2023-01-22 23:21:00 36.72 Tia [facility] Body weight 2023-01-22 23:21:00 58.968 kg [facility] BMI 2023-01-22 23:21:00 18.65 kg/m2 [facility] Heart rate 2023-01-21 21:57:00 84 /min [facility] Respiratory rate 2023-01-21 21:57:00 18 /min [facility] Oxygen saturation in Arterial blood by Pulse oximetry 2023-01-21 21:57:00 97 /min [facility] Systolic blood pressure 2023-01-21 21:00:00 103 mm[Hg] [facility] Diastolic blood pressure 2023-01-21 21:00:00 61 mm[Hg] [facility] Body temperature 2023-01-21 19:24:00 36.56 Tia [facility] Body weight 2023-01-21 19:24:00 58.968 kg [facility] BMI 2023-01-21 19:24:00 18.65 kg/m2 [facility] Systolic blood pressure 2023-01-19 21:00:00 111 mm[Hg] [facility] Diastolic blood pressure 2023-01-19 21:00:00 64 mm[Hg] [facility] Heart rate 2023-01-19 21:00:00 85 /min [facility] Body temperature 2023-01-19 21:00:00 36.56 Tia [facility] Respiratory rate 2023-01-19 21:00:00 17 /min [facility] Oxygen saturation in Arterial blood by Pulse oximetry 2023-01-19 21:00:00 98 /min [facility] Body height 2023-01-19 06:22:00 177.8 cm [facility] Body weight 2023-01-19 06:22:00 58.968 kg [facility] BMI 2023-01-19 06:22:00 18.65 kg/m2 [facility] Systolic blood pressure 2023-01-17 12:05:00 116 mm[Hg] [facility] Diastolic blood pressure 2023-01-17 12:05:00 69 mm[Hg] [facility] Heart rate 2023-01-17 12:05:00 100 /min [facility] Respiratory rate 2023-01-17 12:05:00 24 /min [facility] Oxygen saturation in Arterial blood by Pulse oximetry 2023-01-17 12:05:00 93 /min [facility] Body temperature 2023-01-17 10:59:00 35.39 Tia [facility] Body height 2023-01-17 10:59:00 177.8 cm [facility] Body weight 2023-01-17 10:59:00 58.968 kg [facility] BMI 2023-01-17 10:59:00 18.65 kg/m2 [facility] Systolic blood pressure 2023-01-07 19:38:00 122 mm[Hg] [facility] Diastolic blood pressure 2023-01-07 19:38:00 86 mm[Hg] [facility] Heart rate 2023-01-07 19:38:00 110 /min [facility] Respiratory rate 2023-01-07 19:38:00 16 /min [facility] Body height 2023-01-07 19:38:00 177.8 cm [facility] Body weight 2023-01-07 19:38:00 59.966 kg [facility] BMI 2023-01-07 19:38:00 18.97 kg/m2 [facility] Systolic blood pressure 2022-12-26 18:00:00 118 mm[Hg] [facility] Diastolic blood pressure 2022-12-26 18:00:00 79 mm[Hg] [facility] Heart rate 2022-12-26 18:00:00 93 /min [facility] Respiratory rate 2022-12-26 18:00:00 20 /min [facility] Oxygen saturation in Arterial blood by Pulse oximetry 2022-12-26 18:00:00 95 /min [facility] Body temperature 2022-12-26 15:49:00 36.11 Tia [facility] Body height 2022-12-26 15:49:00 177.8 cm [facility] Body weight 2022-12-26 15:49:00 72.576 kg [facility] BMI 2022-12-26 15:49:00 22.96 kg/m2 [facility] Respiratory rate 2022-12-12 16:45:00 18 /min [facility] Oxygen saturation in Arterial blood by Pulse oximetry 2022-12-12 16:45:00 99 /min [facility] Systolic blood pressure 2022-12-12 16:11:00 135 mm[Hg] [facility] Diastolic blood pressure 2022-12-12 16:11:00 80 mm[Hg] [facility] Heart rate 2022-12-12 16:11:00 77 /min [facility] Body temperature 2022-12-12 16:11:00 35.89 Tia [facility] Body weight 2022-12-12 08:50:00 65 kg [facility] BMI 2022-12-12 08:50:00 20.56 kg/m2 [facility] Body height 2022-12-11 04:23:00 177.8 cm [facility] Heart rate 2022-12-04 12:33:00 95 /min [facility] Respiratory rate 2022-12-04 12:33:00 17 /min [facility] Oxygen saturation in Arterial blood by Pulse oximetry 2022-12-04 12:33:00 98 /min [facility] Systolic blood pressure 2022-12-04 12:20:00 125 mm[Hg] [facility] Diastolic blood pressure 2022-12-04 12:20:00 74 mm[Hg] [facility] Body temperature 2022-12-04 12:20:00 36.61 Tia [facility] Body height 2022-12-02 05:16:00 177.8 cm [facility] Body weight 2022-12-02 05:16:00 72.576 kg [facility] BMI 2022-12-02 05:16:00 22.96 kg/m2 [facility] Systolic blood pressure 2022-12-01 13:00:00 114 mm[Hg] [facility] Diastolic blood pressure 2022-12-01 13:00:00 78 mm[Hg] [facility] Heart rate 2022-12-01 13:00:00 88 /min [facility] Respiratory rate 2022-12-01 13:00:00 20 /min [facility] Oxygen saturation in Arterial blood by Pulse oximetry 2022-12-01 13:00:00 98 /min [facility] Body temperature 2022-12-01 10:13:00 36.67 Tia [facility] Body height 2022-12-01 10:13:00 177.8 cm [facility] Body weight 2022-12-01 10:13:00 72.576 kg [facility] BMI 2022-12-01 10:13:00 22.96 kg/m2 [facility] Systolic blood pressure 2022-11-28 17:00:00 154 mm[Hg] [facility] Diastolic blood pressure 2022-11-28 17:00:00 106 mm[Hg] [facility] Heart rate 2022-11-28 17:00:00 87 /min [facility] Respiratory rate 2022-11-28 17:00:00 23 /min [facility] Oxygen saturation in Arterial blood by Pulse oximetry 2022-11-28 17:00:00 96 /min [facility] Body temperature 2022-11-28 16:00:00 36.78 Tia [facility] Body weight 2022-11-27 12:00:00 67.132 kg [facility] BMI 2022-11-27 12:00:00 21.24 kg/m2 [facility] Body height 2022-11-27 08:39:00 177.8 cm [facility] Systolic blood pressure 2022-11-19 10:48:00 152 mm[Hg] [facility] Diastolic blood pressure 2022-11-19 10:48:00 88 mm[Hg] [facility] Heart rate 2022-11-19 10:48:00 92 /min [facility] Respiratory rate 2022-11-19 10:48:00 16 /min [facility] Oxygen saturation in Arterial blood by Pulse oximetry 2022-11-19 10:48:00 98 /min [facility] Body temperature 2022-11-19 08:20:00 36.22 Tia [facility] Body height 2022-11-19 08:20:00 177.8 cm [facility] Body weight 2022-11-19 08:20:00 67.132 kg [facility] BMI 2022-11-19 08:20:00 21.24 kg/m2 [facility] Systolic blood pressure 2022-11-19 02:18:57 152 mm[Hg] [facility] Diastolic blood pressure 2022-11-19 02:18:57 91 mm[Hg] [facility] Heart rate 2022-11-19 02:18:57 109 /min [facility] Respiratory rate 2022-11-19 02:18:57 22 /min [facility] Oxygen saturation in Arterial blood by Pulse oximetry 2022-11-19 02:18:57 95 /min [facility] Body temperature 2022-11-19 02:17:11 36.78 Tia [facility] Body height 2022-11-19 00:52:00 177.8 cm [facility] Body weight 2022-11-19 00:52:00 67.132 kg [facility] BMI 2022-11-19 00:52:00 21.24 kg/m2 [facility] Heart rate 2022-11-11 17:35:00 75 /min [facility] Respiratory rate 2022-11-11 17:35:00 18 /min [facility] Oxygen saturation in Arterial blood by Pulse oximetry 2022-11-11 17:35:00 95 /min [facility] Systolic blood pressure 2022-11-11 17:25:00 130 mm[Hg] [facility] Diastolic blood pressure 2022-11-11 17:25:00 71 mm[Hg] [facility] Body temperature 2022-11-11 17:25:00 35.94 Tia [facility] Body weight 2022-11-11 09:34:00 77.52 kg [facility] BMI 2022-11-11 09:34:00 24.52 kg/m2 [facility] Body height 2022-11-09 19:30:00 177.8 cm [facility] Systolic blood pressure 2020-12-29 15:24:00 96 mm[Hg] [facility] Diastolic blood pressure 2020-12-29 15:24:00 66 mm[Hg] [facility] Heart rate 2020-12-29 15:24:00 71 /min [facility] Body temperature 2020-12-29 15:24:00 36.33 Tia [facility] Body weight 2020-12-29 15:24:00 72.576 kg [facility] BMI 2020-12-29 15:24:00 22.96 kg/m2 [facility] Oxygen saturation in Arterial blood by Pulse oximetry 2020-12-29 15:24:00 95 /min [facility] Systolic blood pressure 2020-12-18 19:07:00 117 mm[Hg] [facility] Diastolic blood pressure 2020-12-18 19:07:00 77 mm[Hg] [facility] Heart rate 2020-12-18 19:07:00 77 /min [facility] Body temperature 2020-12-18 19:07:00 36.22 Tia [facility] Respiratory rate 2020-12-18 19:07:00 18 /min [facility] Body height 2020-12-18 19:07:00 177.8 cm [facility] Body weight 2020-12-18 19:07:00 73.211 kg [facility] BMI 2020-12-18 19:07:00 23.16 kg/m2 [facility] Systolic blood pressure 2020-12-12 18:00:00 109 mm[Hg] [facility] Diastolic blood pressure 2020-12-12 18:00:00 74 mm[Hg] [facility] Heart rate 2020-12-12 18:00:00 78 /min [facility] Respiratory rate 2020-12-12 18:00:00 20 /min [facility] Oxygen saturation in Arterial blood by Pulse oximetry 2020-12-12 18:00:00 96 /min [facility] Body temperature 2020-12-12 16:33:00 37.28 Tia [facility] Body height 2020-12-12 16:33:00 177.8 cm [facility] Body weight 2020-12-12 16:33:00 70.308 kg [facility] BMI 2020-12-12 16:33:00 22.24 kg/m2 [facility] Systolic blood pressure 2020-12-08 18:55:00 125 mm[Hg] [facility] Diastolic blood pressure 2020-12-08 18:55:00 82 mm[Hg] [facility] Heart rate 2020-12-08 18:55:00 75 /min [facility] Body temperature 2020-12-08 18:55:00 36.56 Tia [facility] Respiratory rate 2020-12-08 18:55:00 16 /min [facility] Body height 2020-12-08 18:55:00 177.8 cm [facility] Body weight 2020-12-08 18:55:00 73.12 kg [facility] BMI 2020-12-08 18:55:00 23.13 kg/m2 [facility] Systolic blood pressure 2019-05-04 04:21:00 127 mm[Hg] [facility] Diastolic blood pressure 2019-05-04 04:21:00 86 mm[Hg] [facility] Heart rate 2019-05-04 04:21:00 99 /min [facility] Respiratory rate 2019-05-04 04:21:00 26 /min [facility] Body height 2019-05-04 04:21:00 177.8 cm [facility] Body weight 2019-05-04 04:21:00 72.576 kg [facility] BMI 2019-05-04 04:21:00 22.96 kg/m2 [facility] Oxygen saturation in Arterial blood by Pulse oximetry 2019-05-04 04:21:00 99 /min [facility] Systolic blood pressure 2019-05-04 04:21:00 127 mm[Hg] [facility] Diastolic blood pressure 2019-05-04 04:21:00 86 mm[Hg] [facility] Heart rate 2019-05-04 04:21:00 99 /min [facility] Respiratory rate 2019-05-04 04:21:00 26 /min [facility] Body height 2019-05-04 04:21:00 177.8 cm [facility] Body weight 2019-05-04 04:21:00 72.576 kg [facility] BMI 2019-05-04 04:21:00 22.96 kg/m2 [facility] Oxygen saturation in Arterial blood by Pulse oximetry 2019-05-04 04:21:00 99 /min [facility] Procedures Procedure Date / Time Performed Performing Clinician Source MEDICATION CORRESPONDENCE 2023-07-08 05:01:00 Do ctor Unassigned, [place] [facility] CONSENT/REFUSAL FOR DIAGNOSIS AND TREATMENT 2023-03-01 19:49:30 Doctor Unassigned, [place] [facility] TRANSTHORACIC ECHO (TTE) COMPLETE W/ CONTRAST 2023-02-16 13:56:56 Dedrick Toth [facility] TROPONIN I 2023-02-16 11:32:00 Dedrick Toth [facility] COMP. METABOLIC PANEL ([id number]) 2023-02-16 11:32:00 Dedrick Toth [facility] CBC WITH DIFF 2023-02-16 11:32:00 Dedrick Toth Un [facility] N-TERMINAL PRO-BNP 2023-02-16 11:32:00 Dedrick Toth [facility] URINALYSIS 2023-02-15 21:18:00 [facility]HYTHM STRIP 2023-02-15 20:15:35 Francisca Bryant [facility] XR CHEST 1 VW 2023-02-15 20:14:30 [facility] AC PANEL 21 + LACTIC ACID 2023-02-15 20:02:00 Francisca Bryant [facility] MAGNESIUM 2023-02-15 20:01:00 [facility] 2023-02-15 20:01:00 Francisca Bryant [facility] COMP. METABOLIC PANEL ([id number]) 2023-02-15 20:01:00 Francisca Bryant [facility] CBC WITH DIFF 2023-02-15 20:01:00 Francisca Bryant [facility] ASSIGNMENT OF BENEFITS 2023-02-07 19:52:07 Docto r Unassigned, [place] [facility] CONSENT/REFUSAL FOR DIAGNOSIS AND TREATMENT 2023-02-07 19:51:03 Doctor Unassigned, [place] [facility] CONSENT/REFUSAL FOR DIAGNOSIS AND TREATMENT 2023-02-04 19:51:56 Doctor Unassigned, [place] [facility] TROPONIN I 2023-01-31 20:21:00 Rachael Flowers [facility] COMP. METABOLIC PANEL ([id number]) 2023-01-31 20:21:00 Rachael Flowers [facility] ETHANOL 2023-01-31 20:21:00 Rachael Flowers [facility] CBC WITH DIFF 2023-01-31 20:21:00 Rachael Flowers [facility] N-TERMINAL PRO-BNP 2023-01-31 20:21:00 Fernando Flowers [facility] CONSENT/REFUSAL FOR DIAGNOSIS AND TREATMENT 2023-01-31 18:39:05 Doctor Unassigned, [place] [facility] CONSENT/REFUSAL FOR DIAGNOSIS AND TREATMENT 2023-01-31 15:54:08 Doctor Unassigned, [place] [facility] CONSENT/REFUSAL FOR DIAGNOSIS AND TREATMENT 2023-01-31 14:29:18 Doctor Unassigned, [place] [facility] ACUTE CARE VENOUS BLOOD GAS 2023-01-27 10:45:00 Bessie Oswald [facility] TROPONIN I 2023-01-27 10:16:00 Bessie Oswald [facility] BASIC METABOLIC PANEL (NA, K, CL, CO2, GLUCOSE, BUN, CREATININE, CA) 2023-01-27 10:16:00 Bessie Oswald [facility] CBC WITH DIFF 2023-01-27 10:16:00 JaBessie elaine [facility] N-TERMINAL PRO-BNP 2023-01-27 10:16:00 Bessie Oswald [facility] URINALYSIS 2023-01-24 20:23:00 Stephanie Almonte [facility] CT HEAD WO CONTRAST 2023-01-24 19:38:00 Stephanie Almonte [facility] AC ABG + LACTIC ACID 2023-01-24 18:37:00 Stephanie Almonte [facility] AMMONIA, PLASMA 2023-01-24 18:19:00 Stephanie Almonte as [facility] RAPID STREP SCREEN FOR GROUP A 2023-01-24 18:19:00 Stephanie Almonte [facility] COVID-19 (ID NOW RAPID TESTING) 2023-01-24 18:19:00 Stephanie Almonte [facility] TROPONIN I 2023-01-24 17:52:00 Stephanie Almonte [facility] COMP. METABOLIC PANEL ([id number]) 2023-01-24 17:52:00 Stephanie Almonte [facility] ETHANOL 2023-01-24 17:52:00 Stephanie Almonte [facility] CBC WITH DIFF 2023-01-24 17:52:00 Stephanie Almonte [facility] N-TERMINAL PRO-BNP 2023-01-24 17:52:00 [facility] COMP. METABOLIC PANEL ([id number]) 2023-01-21 20:58:00 Singer [facility] TROPONIN I 2023-01-21 20:05:00 [facility] WITH DIFF 2023-01-21 20:05:00 Singer [facility] N-TERMINAL PRO-BNP 2023-01-21 20:05:00 Singer [facility] AC PANEL 21 + LACTIC ACID 2023-01-19 08:31:00 Zechariah Hackett [facility] D-DIMER 2023-01-19 08:17:00 Agapito [facility] BASIC METABOLIC PANEL (NA, K, CL, CO2, GLUCOSE, BUN, CREATININE, CA) 2023-01-19 08:15:00 Iza Varma [facility] CBC WITH DIFF 2023-01-19 08:15:00 Iza Varma [facility] N-TERMINAL PRO-BNP 2023-01-19 08:15:00 Agapito Hackett [facility] EKG-12 LEAD 2023-01-17 12:23:30 Marisol Devlin [facility] XR CHEST 1 VW 2023-01-17 11:25:05 [facility] 2023-01-17 11:04:00 Marisol Devlin [facility] COMP. METABOLIC PANEL ([id number]) 2023-01-17 11:04:00 Marisol Devlin [facility] CBC WITH DIFF 2023-01-17 11:04:00 Marisol Devlin [facility] N-TERMINAL PRO-BNP 2023-01-17 11:04:00 Marisol Devlin [facility] COMP. METABOLIC PANEL ([id number]) 2022-12-26 17:23:00 Iza Varma [facility] XR CHEST 1 VW 2022-12-26 16:39:21 [facility] URINE DRUG (IMMUNOASSAY) - COMPREHENSIVE DRUG SCREEN 2022-12-26 16:29:00 Iza Varma [facility] URINALYSIS 2022-12-26 16:29:00 Iza Varma [facility] CBC WITH DIFF 2022-12-26 16:28:00 [facility] MAGNESIUM 2022-12-12 08:55:00 Travis Zeng [facility] BASIC METABOLIC PANEL (NA, K, CL, CO2, GLUCOSE, BUN, CREATININE, CA) 2022-12-12 08:55:00 Travis Zeng [facility] LIPID PANEL (55102)(TOTAL CHOLESTEROL, TRIGLYCERIDES, HDL) 2022-12-12 08:55:00 Travis Zeng [facility] N-TERMINAL PRO-BNP 2022-12-12 08:55:00 Travis Zeng [facility] MAGNESIUM 2022-12-11 08:30:00 Dedrick Toth [facility] OSMOLALITY, SERUM OR PLASMA 2022-12-11 08:30:00 Dedrick Toth [facility] FREE T4 2022-12-11 08:30:00 Dedrick Toth [facility] BASIC METABOLIC PANEL (NA, K, CL, CO2, GLUCOSE, BUN, CREATININE, CA) 2022-12-11 08:30:00 Dedrick Toth [facility] CBC WITH DIFF 2022-12-11 08:30:00 [facility] N-[facility]MIN[facility]-B[facility] 2022-12-11 08:30:00 Dedrick Toth [facility] OSMOLALITY URINE 2022-12-11 03:24:00 Dedrick Toth [facility] SODIUM, URINE RANDOM 2022-12-11 03:24:00 Gunnar Toth [facility] URINALYSIS 2022-12-11 01:15:00 Louis [facility] HB ECG ROUTINE & RHYTHM STRIP 2022-12-11 00:38:04 Louis Hong [facility] CT HEAD WO CONTRAST 2022-12-11 00:32:23 Kameron Hong [facility] XR CHEST 1 VW 2022-12-11 00:29:20 Singer [facility] TROPONIN I 2022-12-11 00:08:00 Louis [facility] COMP. METABOLIC PANEL (87754) 2022-12-11 00:08:00 Louis Hong [facility] ETHANOL 2022-12-11 00:08:00 [facility] CBC WITH DIFF 2022-12-11 00:08:00 Louis [facility] N-TERMINAL PRO-BNP 2022-12-11 00:08:00 Louis Hong [facility] LACTIC ACID WHOLE BLOOD 2022-12-11 00:03:00 Angelita Hong [facility] AUTHORIZATION FOR RELEASE OF PHI 2022-12-09 05:01:00 Doctor Unassigned, [place] [facility] BASIC METABOLIC PANEL (NA, K, CL, CO2, GLUCOSE, BUN, CREATININE, CA) 2022-12-04 10:43:00 Ben [facility] CBC WITH DIFF 2022-12-04 10:43:00 Clive [facility] OSMOLALITY URINE 2022-12-03 17:05:00 Lisseth De Santiago [facility] SODIUM, URINE RANDOM 2022-12-03 17:05:00 Haley De Santiago [facility] MAGNESIUM 2022-12-03 10:20:00 Clive Contreras [facility] BASIC METABOLIC PANEL (NA, K, CL, CO2, GLUCOSE, BUN, CREATININE, CA) 2022-12-03 10:20:00 Ben [facility] CBC WITH DIFF 2022-12-03 10:20:00 Clive [facility] BASIC METABOLIC PANEL (NA, K, CL, CO2, GLUCOSE, BUN, CREATININE, CA) 2022-12-02 05:27:00 Carlo Maki [facility] CONSENT/REFUSAL FOR DIAGNOSIS AND TREATMENT 2022-12-02 05:08:30 Doctor Unassigned, [place] [facility] HOSPITAL ADMISSION 2022-12-02 05:01:00 Doctor Un assigned, [place] [facility] COVID-19 (ID NOW RAPID TESTING) 2022-12-01 13:01:00 Ernesto Piper [facility] XR CHEST 1 VW 2022-12-01 12:40:25 Marisol Devlin [facility] EKG-12 LEAD 2022-12-01 12:17:26 Marisol Devlin [facility] ACUTE CARE ARTERIAL BLOOD GAS 2022-12-01 12:06:00 Marisol Devlin [facility] TROPONIN I 2022-12-01 11:51:00 Marisol Devlin [facility] BASIC METABOLIC PANEL (NA, K, CL, CO2, GLUCOSE, BUN, CREATININE, CA) 2022-12-01 11:51:00 Marisol Devlin [facility] CBC WITH DIFF 2022-12-01 11:51:00 Marisol Devlin [facility] BASIC METABOLIC PANEL (NA, K, CL, CO2, GLUCOSE, BUN, CREATININE, CA) 2022-11-28 16:51:00 Leila Chapa [facility] URIC ACID 2022-11-28 08:14:00 [facility] THYROID STIMULATING HORMONE 2022-11-28 08:14:00 Reyna [facility] BASIC METABOLIC PANEL (NA, K, CL, CO2, GLUCOSE, BUN, CREATININE, CA) 2022-11-28 08:14:00 Leila Chapa [facility] CBC WITH DIFF 2022-11-28 08:14:00 María Diaz [facility] BASIC METABOLIC PANEL (NA, K, CL, CO2, GLUCOSE, BUN, CREATININE, CA) 2022-11-28 04:16:00 María Diaz [facility] BASIC METABOLIC PANEL (NA, K, CL, CO2, GLUCOSE, BUN, CREATININE, CA) 2022-11-28 00:33:00 Leila Chapa [facility] BASIC METABOLIC PANEL (NA, K, CL, CO2, GLUCOSE, BUN, CREATININE, CA) 2022-11-27 19:55:00 María Diaz [facility] MRSA / MSSA SCREEN BY ERIKA NARANJO 2022-11-27 09:21:00 María Diaz [facility] OSMOLALITY, SERUM OR PLASMA 2022-11-27 09:10:00 María Diaz [facility] OSMOLALITY URINE 2022-11-27 09:04:00 María Diaz [facility] BASIC METABOLIC PANEL (NA, K, CL, CO2, GLUCOSE, BUN, CREATININE, CA) 2022-11-27 09:04:00 María Diaz [facility] URINE DRUG (IMMUNOASSAY) - COMPREHENSIVE DRUG SCREEN 2022-11-27 09:04:00 María Diaz [facility] URINALYSIS 2022-11-27 09:04:00 María Diaz [facility] CREATININE, URINE RANDOM 2022-11-27 09:04:00 Ben Diaz [facility] SODIUM, URINE RANDOM 2022-11-27 09:04:00 María Diaz [facility] XR CHEST 1 VW 2022-11-27 06:15:54 Bessie [facility] MAGNESIUM 2022-11-27 05:33:00 María Diaz [facility] TROPONIN I 2022-11-27 05:33:00 Bessie Oswald [facility] COMP. METABOLIC PANEL (57822) 2022-11-27 05:33:00 Bessie Oswald [facility] ETHANOL 2022-11-27 05:33:00 Bessie Oswald [facility] CBC WITH DIFF 2022-11-27 05:33:00 Bessie Oswald [facility] GLYCOSYLATED HEMOGLOBIN (A1C) 2022-11-27 05:33:00 Leila Chapa [facility] N-TERMINAL PRO-BNP 2022-11-27 05:33:00 Bessie Oswald [facility] HB ECG ROUTINE & RHYTHM STRIP 2022-11-27 05:31:54 Bessie Oswald [facility] COMP. METABOLIC PANEL (06668) 2022-11-19 08:44:00 Iza Varma [facility] CBC WITH DIFF 2022-11-19 08:44:00 [facility] N-TERMINAL PRO-BNP 2022-11-19 08:44:00 zIa Varma [facility] BASIC METABOLIC PANEL (NA, K, CL, CO2, GLUCOSE, BUN, CREATININE, CA) 2022-11-11 10:52:00 Iza Eden [facility] CBC WITH DIFF 2022-11-11 10:52:00 Iza Eden [facility] BASIC METABOLIC PANEL (NA, K, CL, CO2, GLUCOSE, BUN, CREATININE, CA) 2022-11-11 02:16:00 [place] [facility] BASIC METABOLIC PANEL (NA, K, CL, CO2, GLUCOSE, BUN, CREATININE, CA) 2022-11-10 22:45:00 [place] [facility] BASIC METABOLIC PANEL (NA, K, CL, CO2, GLUCOSE, BUN, CREATININE, CA) 2022-11-10 17:27:00 [place] [facility] BASIC METABOLIC PANEL (NA, K, CL, CO2, GLUCOSE, BUN, CREATININE, CA) 2022-11-10 11:49:00 [place] [facility] MAGNESIUM 2022-11-10 07:14:00 Travis Zeng [facility] BASIC METABOLIC PANEL (NA, K, CL, CO2, GLUCOSE, BUN, CREATININE, CA) 2022-11-10 07:14:00 [place] [facility] CBC WITH DIFF 2022-11-10 07:14:00 [place] [facility] XR CHEST 1 VW 2022-11-09 07:53:00 Marisol Devlin [facility] LIPASE 2022-11-09 07:53:00 Marisol Devlin [facility] TROPONIN I 2022-11-09 07:53:00 Marisol Devlin [facility] COMP. METABOLIC PANEL (17802) 2022-11-09 07:53:00 Marisol Devlin [facility] CBC WITH DIFF 2022-11-09 07:53:00 Marisol Devlin [facility] N-TERMINAL PRO-BNP 2022-11-09 07:53:00 Marisol Devlin [facility] ACUTE CARE ARTERIAL BLOOD GAS 2022-11-09 07:50:00 Marisol Devlin [facility] HB ECG ROUTINE & RHYTHM STRIP 2022-11-09 07:39:47 Marisol Devlin [facility] ASSIGNMENT OF BENEFITS 2021-05-20 19:26:54 Duran eduardo Unassigned, [place] [facility] POCT URINALYSIS AUTO 2020-12-18 19:04:00 Zeus Turner [facility] CT ABDOMEN PELVIS W CONTRAST 2020-12-12 17:25:03 Francisca Bryant [facility] BASIC METABOLIC PANEL (NA, K, CL, CO2, GLUCOSE, BUN, CREATININE, CA) 2020-12-12 16:47:00 Francisca Bryant [facility] CBC WITH DIFF 2020-12-12 16:47:00 [facility] 2020-12-12 16:47:00 [facility] NOTICE OF PRIVACY PRACTICES 2020-12-12 16:28:57 Doctor Unassigned, [place] [facility] CONSENT/REFUSAL FOR DIAGNOSIS AND TREATMENT 2020-12-12 16:28:23 Doctor Unassigned, [place] [facility] POCT URINALYSIS AUTO 2020-12-08 18:56:00 Jeanette Mcdaniel [facility] CONSENT/REFUSAL FOR DIAGNOSIS AND TREATMENT 2020-12-08 18:26:17 Doctor Unassigned, [place] [facility] ASSIGNMENT OF BENEFITS 2020-12-08 18:25:58 Duran eduardo Unassigned, [place] [facility] AUTHORIZATION FOR RELEASE OF PHI 2020-02-20 05:01:00 Doctor Unassigned, [place] [facility] NOTICE OF PRIVACY PRACTICES 2019-05-04 04:10:29 Doctor Unassigned, [place] [facility] CONSENT/REFUSAL FOR DIAGNOSIS AND TREATMENT 2019-05-04 04:10:09 Doctor Unassigned, [place] [facility] Encounters Start Date/Time End Date/Time Encounter Type Admission Type Attending [facility] Care Department Encounter ID Source 2021-07-19 08:46:33 Emergency [facility] [id number] [facility] 2023-07-21 10:00:00 2023-07-21 10:00:00 Outpatient R AUSTYN MARYNOMI CLIFTON [facility] [id number] [facility] 2023-07-15 00:00:00 2023-07-15 00:00:00 Case Management Nomi Mary [facility] 1.20.114 350.1.13.10 4.2.7.2.686 [id number] [facility] 2023-07-08 00:00:00 2023-07-08 00:00:00 [facility] 1.2.114 350.1.13.10 4.2.7.2.686 [id number] [facility] 2023-07-08 00:00:00 2023-07-08 00:00:00 Orders Only Doctor Unassigned, [place] [facility] 1.20.114 350.1.13.10 4.2.7.2.686 [id number] [facility] 2023-04-22 00:00:00 2023-04-22 00:00:00 Outpatient R MARY YENNIVLADISLAVYENNI CLIFTONKYTim [facility] [id number] [facility] 2023-04-19 10:00:00 2023-04-19 10:53:24 Outpatient R NOMI MARY [facility] [id number] [facility] 2023-04-19 10:00:00 2023-04-19 10:53:24 Office Visit Mathew Yennioktim [facility] 1.2.114 350.1.13.10 4.2.7.2.686 [id number] [facility] 2023-04-19 00:00:00 2023-04-19 00:00:00 Patient Outreach Marika Monge 1.2.114 350.1.13.10 4.2.7.2.686 [id number] [facility] 2023-03-01 16:30:00 2023-03-01 17:00:00 [facility] 1.284.114 350.1.13.10 4.2.7.2.686 [id number] [facility] 2023-03-01 16:30:00 2023-03-01 16:30:00 Outpatient R [facility] [id number] [facility] 2023-03-01 00:00:00 2023-03-01 00:00:00 Orders Only Doctor Unassigned, [place] [facility] 1..114 350.1.13.10 4.2.7.2.686 [id number] [facility] 2023-03-01 00:00:00 2023-03-01 00:00:00 Refill Mily Goodwin [facility] 1.84.114 350.1.13.10 4.2.7.2.686 [id number] [facility] 2023-02-21 00:00:00 2023-02-21 00:00:00 Transition of Care Taylor Frye 1.2114 350.1.13.10 4.2.7.2.686 [id number] [facility] 2023-02-15 14:41:00 2023-02-18 16:11:00 Inpatient X TRAVIS ZENG [facility] [id number] [facility] 2023-02-15 14:41:00 2023-02-18 16:11:00 Hospital Encounter Iza Varma Sandra J Oville, Jelani [facility] 1.2.114 350.1.13.10 4.2.7.2.686 [id number] [facility] 2023-02-07 14:30:00 2023-02-07 16:01:00 Emergency X PRADIP AUSTIN [facility] ERT [id number] [facility] 2023-02-07 14:30:00 2023-02-07 16:01:00 Emergency Pradip Austin [facility] 1.2.840.114 350.1.13.10 4.2.7.2.686 [id number] [facility] 2023-02-07 10:20:00 2023-02-07 10:20:00 Outpatient CARL ALDRIDGE CHRISTINE [facility] [id number] [facility] 2023-02-05 14:53:00 2023-02-05 16:10:00 Emergency X CHOHERMINIA [facility] ERT [id number] [facility] 2023-02-05 14:53:00 2023-02-05 16:10:00 Emergency Herminia Cho [facility] 1.2.840.114 350.1.13.10 4.2.7.2.686 [id number] [facility] 2023-02-04 15:26:00 2023-02-04 16:25:00 Emergency X FRANCISCA BRYANT [facility] ERT [id number] [facility] 2023-02-04 15:26:00 2023-02-04 16:25:00 Emergency Francisca Bryant [facility] 1.2.840.114 350.1.13.10 4.2.7.2.686 [id number] [facility] 2023-02-03 17:46:00 2023-02-03 18:47:00 Emergency X LOUIS HONG [facility] ERT [id number] [facility] 2023-02-03 17:46:00 2023-02-03 18:47:00 Emergency X LOUIS HONG [facility] ERT [id number] [facility] 2023-02-03 17:46:00 2023-02-03 18:47:00 Emergency Louis Hong [facility] 1.2.840.114 350.1.13.10 4.2.7.2.686 [id number] [facility] 2023-02-03 12:43:00 2023-02-03 15:04:00 Emergency Bessie Oswald [facility] 1.2.840.114 350.1.13.10 4.2.7.2.686 [id number] [facility] 2023-02-02 16:49:00 2023-02-02 18:10:00 Emergency X LOUIS HONG [facility] ERT [id number] [facility] 2023-02-02 16:49:00 2023-02-02 18:10:00 Emergency Louis Hong [facility] 1.2.840.114 350.1.13.10 4.2.7.2.686 [id number] [facility] 2023-01-31 13:55:00 2023-01-31 16:50:00 Emergency X RACHAEL FLOWERS [facility] ERT [id number] [facility] 2023-01-31 13:55:00 2023-01-31 16:50:00 Emergency X RACHAEL FLOWERS [facility] ERT [id number] [facility] 2023-01-31 13:55:00 2023-01-31 16:50:00 Emergency Rachael Flowers [facility] 1.2.840.114 350.1.13.10 4.2.7.2.686 [id number] [facility] 2023-01-31 11:11:00 2023-01-31 12:12:00 Emergency X LEOBARDO SLOAN [facility] ERT [id number] [facility] 2023-01-31 11:11:00 2023-01-31 12:12:00 Emergency Leobardo Sloan [facility] 1.2.840.114 350.1.13.10 4.2.7.2.686 [id number] [facility] 2023-01-31 09:51:00 2023-01-31 10:16:00 Emergency [facility] 1.2.840.114 350.1.13.10 4.2.7.2.686 [id number] [facility] 2023-01-29 08:08:00 2023-01-29 10:00:00 Emergency X HERMINIA CHO [facility] ERT [id number] [facility] 2023-01-29 08:08:00 2023-01-29 10:00:00 Emergency Herminia Cho [facility] 1.2.840.114 350.1.13.10 4.2.7.2.686 [id number] [facility] 2023-01-27 04:50:00 2023-01-27 07:03:00 Emergency X SIMONEBESSIE Chandler [facility] ERT [id number] [facility] 2023-01-27 04:50:00 2023-01-27 07:03:00 Emergency Bsesie Oswald [facility] 1.2.840.114 350.1.13.10 4.2.7.2.686 [id number] [facility] 2023-01-27 00:00:00 2023-01-27 00:00:00 Telephone Nomi Mary [facility] 1.2.840.114 350.1.13.10 4.2.7.2.686 [id number] [facility] 2023-01-24 12:28:00 2023-01-24 16:16:00 Emergency X STEPHANIE ALMONTE [facility] ERT [id number] [facility] 2023-01-24 12:28:00 2023-01-24 16:16:00 Emergency Stephanie Almonte [facility] 1.2.840.114 350.1.13.10 4.2.7.2.686 [id number] [facility] 2023-01-23 19:02:00 2023-01-23 20:36:00 Emergency X IZA VARMA [facility] ERT [id number] [facility] 2023-01-23 19:02:00 2023-01-23 20:36:00 Emergency Iza Varma [facility] 1.2.840.114 350.1.13.10 4.2.7.2.686 [id number] [facility] 2023-01-22 18:24:00 2023-01-22 19:55:00 Emergency X IZA VARMA [facility] ERT [id number] [facility] 2023-01-22 18:24:00 2023-01-22 19:55:00 Emergency Iza Varma [facility] 1.2.840.114 350.1.13.10 4.2.7.2.686 [id number] [facility] 2023-01-21 14:20:00 2023-01-21 18:14:00 Emergency LOUIS THOMPSON [facility] ERT [id number] [facility] 2023-01-21 14:20:00 2023-01-21 18:14:00 Emergency Louis [facility] 1.2.840.114 350.1.13.10 4.2.7.2.686 [id number] [facility] 2023-01-20 00:00:00 2023-01-20 00:00:00 Transition of Care Taylor Frye 1.2.840.114 350.1.13.10 4.2.7.2.686 [id number] [facility] 2023-01-19 01:15:00 2023-01-19 19:40:00 Hospital Encounter [facility] , Kathia Varma, Iza Hackett, María Escobar [facility] 1.2.840.114 350.1.13.10 4.2.7.2.686 [id number] [facility] 2023-01-17 05:57:00 2023-01-17 07:37:00 Emergency X MARISOL DEVLIN [facility] ERT [id number] [facility] 2023-01-17 05:57:00 2023-01-17 07:37:00 Emergency Marisol Devlin [facility] 1.2.840.114 350.1.13.10 4.2.7.2.686 [id number] [facility] 2023-01-17 05:57:00 2023-01-17 07:37:00 Emergency X MARISOL DEVLIN [facility] ERT [id number] [facility] 2023-01-10 00:00:00 2023-01-10 00:00:00 Letter (Out) Herminia Oh [facility] 1..840.114 350.1.13.10 4.2.7.2.686 [id number] [facility] 2023-01-07 14:30:00 2023-01-07 15:25:56 Outpatient R HERMINIA OH [facility] [id number] [facility] 2023-01-07 14:30:00 2023-01-07 15:25:56 Office Visit Herminia Oh [facility] 1.840.114 350.1.13.10 4.2.7.2.686 [id number] [facility] 2022-12-26 10:50:00 2022-12-26 14:12:00 Emergency X IZA VARMA [facility] ERT [id number] [facility] 2022-12-26 10:50:00 2022-12-26 14:12:00 Emergency Iza Varma S [facility] 1.84.114 350.1.13.10 4.2.7.2.686 [id number] [facility] 2022-12-14 11:30:00 2022-12-14 11:30:00 Outpatient R NOMI MARY SHIKYTim [facility] [id number] [facility] 2022-12-14 00:00:00 2022-12-14 00:00:00 Transition of Care Taylor Frye [facility] 1.840.114 350.1.13.10 4.2.7.2.686 [id number] [facility] 2022-12-10 18:49:00 2022-12-12 14:35:00 Outpatient X TRAVIS ZENG [facility] [id number] [facility] 2022-12-10 18:49:00 2022-12-12 14:35:00 Hospital Encounter Louis Hong Mohammad A. Oville, Jelani [facility] 1.840.114 350.1.13.10 4.2.7.2.686 [id number] [facility] 2022-12-10 00:00:00 2022-12-10 00:00:00 Case Management Nomi Mary [facility] 1.2.840.114 350.1.13.10 4.2.7.2.686 [id number] [facility] 2022-12-10 00:00:00 2022-12-10 00:00:00 Transition of Care Cecy Caro 1.2.840.114 350.1.13.10 4.2.7.2.686 [id number] [facility] 2022-12-09 00:00:00 2022-12-09 00:00:00 Orders Only Doctor Unassigned, [place] [facility] 1.2.840.114 350.1.13.10 4.2.7.2.686 [id number] [facility] 2022-12-06 00:00:00 2022-12-06 00:00:00 Transition of Care Taylor Frye 1.2.840.114 350.1.13.10 4.2.7.2.686 [id number] [facility] 2022-12-02 00:13:00 2022-12-04 12:30:00 Hospital Encounter Carlo Maki, Abi Contreras, [facility] 1.2.840.114 350.1.13.10 4.2.7.2.686 [id number] [facility] 2022-12-01 05:32:00 2022-12-01 09:08:00 Emergency ERNESTO SHANE CHARLES [facility] ERT [id number] [facility] 2022-12-01 05:32:00 2022-12-01 09:08:00 Emergency Marisol Devlin Charles Davis, Elizabeth [facility] 1.2.840.114 350.1.13.10 4.2.7.2.686 [id number] [facility] 2022-12-01 05:32:00 2022-12-01 09:08:00 Emergency U ERNESTO PIPER [facility] ERT [id number] [facility] 2022-11-26 22:55:00 2022-11-28 13:50:00 Outpatient X DHARMESH LEILA [facility] [id number] [facility] 2022-11-26 22:55:00 2022-11-28 13:50:00 Hospital Encounter Bessie Oswald David Abdullah, Yaman [facility] 1.840.114 350.1.13.10 4.2.7.2.686 [id number] [facility] 2022-11-19 02:17:00 2022-11-19 05:12:00 Emergency X VARMAIZA [facility] ERT [id number] [facility] 2022-11-19 02:17:00 2022-11-19 05:12:00 Emergency Sandro Varmaosbaldo Chandler [facility] 1.840.114 350.1.13.10 4.2.7.2.686 [id number] [facility] 2022-11-18 18:52:00 2022-11-18 20:29:00 Emergency X FRANCISCA BRYANT [facility] ERT [id number] [facility] 2022-11-18 18:52:00 2022-11-18 20:29:00 Emergency Francisca Bryant [facility] 1.2840.114 350.1.13.10 4.2.7.2.686 [id number] [facility] 2022-11-17 00:00:00 2022-11-17 00:00:00 Telephone Nomi Mary [facility] 1.2840.114 350.1.13.10 4.2.7.2.686 [id number] [facility] 2022-11-12 00:00:00 2022-11-12 00:00:00 Transition of Care Frye Taylor B GARY GIORDANO 1.2840.114 350.1.13.10 4.2.7.2.686 [id number] [facility] 2022-11-09 01:32:00 2022-11-11 13:35:00 Inpatient X DAVEYRADHA TRAVIS [facility] [id number] [facility] 2022-11-09 01:32:00 2022-11-11 13:35:00 Hospital Encounter [facility] 1.2840.114 350.1.13.10 4.2.7.2.686 [id number] [facility] 2021-05-22 00:00:00 2021-05-22 00:00:00 Telephone Jeanette Mcdaniel [facility] 1.20.114 350.1.13.10 4.2.7.2.686 [id number] 204 [id number] [facility] 2021-05-20 14:28:38 2021-05-20 14:43:38 Block Cutter Visit Pob, Adc Lab Main Jimy [facility] 1.20.114 350.1.13.10 4.2.7.2.686 [id number] [facility] 2021-05-20 14:30:00 2021-05-20 14:30:00 [facility]patient [facility] [id number] [facility] 2021-05-20 00:00:00 2021-05-20 00:00:00 Orders Only Doctor Unassigned, [place] [facility] 1.20.114 350.1.13.10 4.2.7.2.686 [id number] 009 [id number] [facility] 2021-05-20 00:00:00 2021-05-20 00:00:00 [facility] 1.2.840.114 350.1.13.10 4.2.7.2.686 [id number] 204 [id number] [facility] 2020-12-29 10:12:45 2020-12-29 11:07:51 Office Visit JimyGokul [facility] 1.2.840.114 350.1.13.10 4.2.7.2.686 [id number] 204 [id number] [facility] 2020-12-29 10:15:00 2020-12-29 10:15:00 Outpatient R GOKUL T[facility]NER [facility] [id number] [facility] 2020-12-18 13:36:17 2020-12-18 14:58:35 Office Visit Gokul Turner Rm, Adc Surg Spec Procedure [facility] 1.2.840.114 350.1.13.10 4.2.7.2.686 [id number] 204 [id number] [facility] 2020-12-18 14:00:00 2020-12-18 14:00:00 Outpatient R GOKUL [facility] [id number] [facility] 2020-12-16 00:00:00 2020-12-16 00:00:00 Outpatient R JEANETTE MCDANIEL [facility] [id number] [facility] 2020-12-16 00:00:00 2020-12-16 00:00:00 Telephone Jeanette Mcdaniel [facility] 1.2.840.114 350.1.13.10 4.2.7.2.686 [id number] 204 [id number] [facility] 2020-12-12 11:36:00 2020-12-12 13:42:00 Emergency SylvainFrancisca [facility] 1.2.840.114 350.1.13.10 4.2.7.2.686 [id number] 084 [id number] [facility] 2020-12-12 00:00:00 2020-12-12 00:00:00 Telephone Jeanette Mcdaniel [facility] 1.2.840.114 350.1.13.10 4.2.7.2.686 [id number] 204 [id number] [facility] 2020-12-08 13:28:10 2020-12-08 14:09:14 Office Visit Jeanette Mcdaniel [facility] 1.2.840.114 350.1.13.10 4.2.7.2.686 [id number] 204 [id number] [facility] 2020-12-08 13:30:00 2020-12-08 13:30:00 Outpatient R YUNG [facility]IE[facility]LA [facility] [id number] [facility] 2020-12-08 00:00:00 2020-12-08 00:00:00 Orders Only Doctor Unassigned, [place] [facility] 1.2840.114 350.1.13.10 4.2.7.2.686 [id number] 009 [id number] [facility] 2020-12-07 00:00:00 2020-12-07 00:00:00 Nurse Triage Herminia Preez [facility] 1.2.840.114 350.1.13.10 4.2.7.2.686 [id number] 019 [id number] [facility] 2020-02-20 00:00:00 2020-02-20 00:00:00 Orders Only Doctor Unassigned, [place] [facility] 1.2.840.114 350.1.13.10 4.2.7.2.686 [id number] 009 [id number] 2020-02-20 00:00:00 2020-02-20 00:00:00 Orders Only Doctor Unassigned, [place] [facility] 1.2.840.114 350.1.13.10 4.2.7.2.686 [id number] 009 [id number] [facility] 2019-08-28 08:25:33 2019-08-28 11:54:00 Emergency X HERMINIA CHO [facility] E[facility] [id number] [facility] 2019-08-24 01:43:17 2019-08-24 03:52:00 Emergency X LOUIS HONG [facility] ERT [id number] [facility] 2019-05-03 23:28:18 2019-05-04 00:27:00 Emergency Ramesh Encinas [facility] 1.2.840.114 350.1.13.10 4.2.7.2.686 [id number] 084 [id number] [facility] 2019-05-03 23:28:18 2019-05-04 00:27:00 Emergency Ramesh Encinas [facility] 1.2.840.114 350.1.13.10 4.2.7.2.686 [id number] 084 [id number] 2019-05-03 00:00:00 2019-05-03 00:00:00 Orders Only Doctor Unassigned, [place] [facility] 1.2.840.114 350.1.13.10 4.2.7.2.686 [id number] 009 [id number] [facility] 2019-05-03 00:00:00 2019-05-03 00:00:00 Orders Only Doctor Unassigned, [place] [facility] 1.2.840.114 350.1.13.10 4.2.7.2.686 [id number] 009 [id number] Results Test Description Test Time Test Comments Results Result Co mments Source [facility] ([id number])2023-02-15 21:00:57* Test Item Value Reference Range Interpretation Comme nts NA (test code = 3909557858) 133 mmol/L 135-145 L K (test code = 9515271268) 4.5 mmol/L 3.5-5.0 CL (test code = 0711154166) 90 mmol/L 98-108 L CO2 TOTAL (test code = 2728502162) 40 mmol/L 23-31 H AGAP (test code = 6253535445) 3 2-16 BUN (test code = 7714351881) 25 mg/dL 7-23 H GLUCOSE (test code = 5342591092) 107 mg/dL 70-110 CREATININE (test code = 6902004592) 0.88 mg/dL 0.60-1.25 TOTAL BILI (test code = 3278992452) 1.6 mg/dL 0.1-1.1 H CALCIUM (test code = 6913080943) 8.9 mg/dL 8.6-10.6 T PROTEIN (test code = 1043263053) 6.1 g/dL 6.3-8.2 L ALBUMIN (test code = 7793493515) 3.7 g/dL 3.5-5.0 ALK PHOS (test code = 4581252303) 56 U/L 34-122 ALTv (test code = 1742-6) 14 U/L 5-50 AST(SGOT) (test code = 7377999735) 12 U/L 13-40 L eGFR (test code = 9565590336) 87.2 mL/min/1.73m2 OMAYRA (test code = OMAYRA) [...] imaging tests). Lab Interpretation (test code = 31896-7) Abnormal [facility] 21:00:57* Test Item Value Reference Range Interpretation Comme nts MAGNESIUM (test code = 6426869834) 2.0 mg/dL 1.7-2.4 Lab Interpretation (test cod e = 08824-7) Normal [facility] WITH [id number] 20:53:39* Test Item Value Reference Range Interpretation Comme nts WBC (test code = 6690-2) 9.03 See_Comment [Automated Really Simple] The system which generated this result transmitted reference range: 4.20 - 10.70 10*3/?L. The reference range was not used to interpret this result as normal/abnormal. RBC (test code = 789-8) 4.50 See_Comment [Automated Really Simple] The system which generated this result transmitted [...] 33.0 g/dL 31.2-35.0 RDW-SD (test code = 06389-3) 50.1 fL 38.5-51.6 RDW-CV (test code = 788-0) 13.6 % 12.1-15.4 PLT (test code = 777-3) 223 See_Comment [Automated messa ge] The system which generated this result transmitted reference range: 150 - 328 10*3/?L. The reference range was not used to interpret this result as normal/abnormal. MPV (test code = 57026-5) 12.1 fL 9.8-13.0 NRBC/100 WBC (test code = 7909036970) 0.0 See_Comment [Automated [employer] ssage] The system which generated this result transmitted reference range: 0.0 - 10.0 /100 WBCs. The reference range was not used to interpret this result as normal/abnormal. NRBC x10^3 (test code = 3859917280) See_Comment [Automated messa ge] The system which generated this result transmitted reference range: 10*3/?L. The reference range was not used to interpret this result as normal/abnormal. GRAN MAT (NEUT) % (test code = 770-8) 72.8 % IMM GRAN % (test code = 6058261763) 0.90 % LYMPH % (test code = 736-9) 17.7 % MONO % (test code = 5905-5) 7.4 % EOS % (test code = 713-8) 0.9 % BASO % (test code = 706-2) 0.3 % GRAN MAT x10^3(ANC) (test code = 9240366767) 6.57 10*3/uL 1.99-6.95 IMM GRAN x10^3 (test code = 1052023649) 0.08 10*3/uL 0.00-0.06 H LYMPH x10^3 (test code = 731-0) 1.60 10*3/uL 1.09-3.23 MONO x10^3 (test code = 742-7) 0.67 10*3/uL 0.36-1.02 EOS x10^3 (test code = 711-2) 0.08 10*3/uL 0.06-0.53 BASO x10^3 (test code = 704-7) 0.03 10*3/uL 0.01-0.09 Lab Interpretation (test code = 74782-1) [facility] [id number] 20:11:20* Test Item Value Reference Range Interpretation Comme nts PH (test code = 0933508474) 7.33 7.32-7.42 PCO2 ERVIN (test code = 8512200095) 75 See_Comment H [Automated messa ge] The system which generated this result transmitted reference range: 41 - 51 mmHg. The reference range was not used to interpret this result as normal/abnormal. PO2 ERVIN (test code = 5605145766) 20 See_Comment L [Automated messa ge] The system which generated this result transmitted reference range: 25 - 40 mmHg. The reference range was not used to interpret this result as normal/abnormal. HCO3 ERVIN (test code = 7046702126) 39 See_Comment H [Automated messa ge] The system which generated this result transmitted reference range: 24 - 28 mEq/L. The reference range was not used to interpret this result as normal/abnormal. AC VBE(BEAKER) (test code = 9655779008) 9.1 mEq/L THB ERVIN (test code = 4566899865) 15.9 g/dL 13.5-18.0 %O2HB ERVIN (test code = 9846160139) 30.0 % 52.0-63.0 L %COHB ERVIN (test code = 6580990437) 4.1 % 0.0-1.5 H %METHB ERVIN (test code = 3796700181) 0.3 % 0.4-1.5 L VOL%O2 ERVIN (test code = 7501004274) 6.7 % 6.0-12.0 NA (test code = 6930948136) 137 mmol/L 135-145 K+ (test code = 7888379637) 4.5 mmol/L 3.5-5.0 AC CA IONZ (test code = 7891787839) 4.60 mg/dL 4.50-5.30 GLUCOSE (test code = 4899459958) 113 mg/dL 70-110 H LACTIC ACID (test code = 2472429370) 1.65 mmol/L 0.50-2.20 Lab Interpretation (test code = 09153-1) [facility]normal [facility] [id number] 21:20:05* Test Item Value Reference Range Interpretation Comme nts TROPONIN I (test code = 5802463678) 0.005 ng/mL <=0.034 OMAYRA (test code = [...] of biotin. Lab Interpretation (test code = 43764-3) Normal [facility] [id number] 21:17:24* Test Item Value Reference Range Interpretation Comme nts NT-proBNP (test code = 9698542351) 712 pg/mL <=125 H OMAYRA (test code = OMAYRA) Biotin has been reported to cause a negative bias, interpret results relative to patient's use of biotin. Lab Interpretation (test code = 35453-6) Abnormal [facility]2023-[facility]-15 21:13:47 ALCOHOL<10mg/dL01/31/2023 4:13 PM [facility]<10 Qwwctipu19-395 Toxic>100 Depression of LINK TRAINER MAINTENANCE MAN>400 Fatalities [facility]. METABOLIC PANEL (28961)2023-01-31 21:10:01* Test Item Value Reference Range Interpretation Comme nts NA (test code = 0677473282) 142 mmol/L 135-145 K (test code = 1999233467) 4.7 mmol/L 3.5-5.0 CL (test code = 0781804432) 99 mmol/L 98-108 CO2 TOTAL (test code = 1090907218) 37 mmol/L 23-31 H AGAP (test code = 5966351137) 6 2-16 BUN (test code = 1749557816) 30 mg/dL 7-23 H GLUCOSE (test code = 1981948171) 100 mg/dL 70-110 CREATININE (test code = 7411538745) 0.61 mg/dL 0.60-1.25 TOTAL BILI (test code = 2796687195) 0.6 mg/dL 0.1-1.1 CALCIUM (test code = 6516275657) 8.8 mg/dL 8.6-10.6 T PROTEIN (test code = 3711790679) 5.9 g/dL 6.3-8.2 L ALBUMIN (test code = 7534672639) 3.5 g/dL 3.5-5.0 ALK PHOS (test code = 1066800235) 42 U/L 34-122 ALTv (test code = 1742-6) 16 U/L 5-50 AST(SGOT) (test code = 6327217247) 12 U/L 13-40 L eGFR (test code = 1051531378) 133.1 mL/min/1.73m2 OMAYRA (test code = OMAYRA) [...] imaging tests). Lab Interpretation (test code = 55982-0) Abnormal [facility] WITH [id number] 20:59:58* Test Item Value Reference Range Interpretation [...] g/dL 31.2-35.0 L RDW-SD (test code = 52535-6) 61.6 fL 38.5-51.6 H RDW-CV (test code = 788-0) 16.2 % 12.1-15.4 H PLT (test code = 777-3) 250 See_Comment [Automated message] The system which generated this result transmitted reference range: 150 - 328 10*3/?L. The reference range was not used to interpret this result as normal/abnormal. MPV (test code = 33013-9) 10.5 fL 9.8-13.0 NRBC/100 WBC (test code = 6356507565) 0.0 See_Comment [Automated message] The system which generated this result transmitted reference range: 0.0 - 10.0 /100 WBCs. The reference range was not used to interpret this result as normal/abnormal. NRBC x10^3 (test code = 1081349154) See_Comment [Automated message] The system which generated this result transmitted reference range: 10*3/?L. The reference range was not used to interpret this result as normal/abnormal. GRAN MAT (NEUT) % (test code = 770-8) 90.9 % IMM GRAN % (test code = 5651346236) 1.20 % LYMPH % (test code = 736-9) 3.9 % MONO % (test code = 5905-5) 3.8 % EOS % (test code = 713-8) 0.0 % BASO % (test code = 706-2) 0.2 % GRAN MAT x10^3(ANC) (test code = 2310611389) 11.83 10*3/uL 1.99-6.95 H IMM GRAN x10^3 (test code = 0234831204) 0.16 10*3/uL 0.00-0.06 H LYMPH x10^3 (test code = 731-0) 0.51 10*3/uL 1.09-3.23 L MONO x10^3 (test code = 742-7) 0.49 10*3/uL 0.36-1.02 EOS x10^3 (test code = 711-2) 0.06-0.53 L BASO x10^3 (test code = 704-7) 0.03 10*3/uL 0.01-0.09 Lab Interpretation (test code = 44864-6) Abnormal [facility] [id number] 11:16:36* Test Item Value Reference Range Interpretation Comme nts TROPONIN I (test code = 4806289162) 0.002 ng/mL <=0.034 OMAYRA (test code = [...] of biotin. Lab Interpretation (test code = 49484-8) Normal [facility] [id number] 11:13:18* Test Item Value Reference Range Interpretation Comme nts NT-proBNP (test code = 5137873193) 112 pg/mL <=125 OMAYRA (test code = OMAYRA) Biotin has been reported to cause a negative bias, interpret results relative to patient's use of biotin. Lab Interpretation (test code = 24991-8) Normal [facility] METABOLIC PANEL (NA, K, CL, CO2, GLUCOSE, BUN, CREATININE, CA)2023-01-27 11:04:56* Test Item Value Reference Range Interpretation Comme nts NA (test code = 9362868409) 136 mmol/L 135-145 K (test code = 7690675303) 4.1 mmol/L 3.5-5.0 CL (test code = 8121202445) 96 mmol/L 98-108 L CO2 TOTAL (test code = 1249489565) 34 mmol/L 23-31 H AGAP (test code = 5453700375) 6 2-16 BUN (test code = 6253571830) 22 mg/dL 7-23 GLUCOSE (test code = 9918397045) 117 mg/dL 70-110 H CREATININE (test code = 3277120523) 0.55 mg/dL 0.60-1.25 L CALCIUM (test code = 4636323498) 8.4 mg/dL 8.6-10.6 L eGFR (test code = 3822552811) 150.0 mL/min/1.73m2 OMAYRA (test code = OMAYRA) [...] imaging tests). Lab Interpretation (test code = 53011-8) Abnormal [facility] WITH [id number] 10:38:33* Test Item Value Reference Range Interpretation Comme nts WBC (test code = 6690-2) 9.56 See_Comment [Automated Really Simple] The system which generated this result transmitted reference range: 4.20 - 10.70 10*3/?L. The reference range was not used to interpret this result as normal/abnormal. RBC (test code = 789-8) 4.31 See_Comment [Automated [employer] Simple] The system which generated this result transmitted [...] 31.8 g/dL 31.2-35.0 RDW-SD (test code = 78608-8) 56.7 fL 38.5-51.6 H RDW-CV (test code = 788-0) 15.3 % 12.1-15.4 PLT (test code = 777-3) 220 See_Comment [Automated [employer] Simple] The system which generated this result transmitted reference range: 150 - 328 10*3/?L. The reference range was not used to interpret this result as normal/abnormal. MPV (test code = 34010-5) 10.6 fL 9.8-13.0 NRBC/100 WBC (test code = 0575914165) 0.0 See_Comment [Automated me ssage] The system which generated this result transmitted reference range: 0.0 - 10.0 /100 WBCs. The reference range was not used to interpret this result as normal/abnormal. NRBC x10^3 (test code = 4604603367) See_Comment [Automated messa ge] The system which generated this result transmitted reference range: 10*3/?L. The reference range was not used to interpret this result as normal/abnormal. GRAN MAT (NEUT) % (test code = 770-8) 60.0 % IMM GRAN % (test code = 5801195933) 0.70 % LYMPH % (test code = 736-9) 26.5 % MONO % (test code = 5905-5) 11.4 % EOS % (test code = 713-8) 0.9 % BASO % (test code = 706-2) 0.5 % GRAN MAT x10^3(ANC) (test code = 2262429596) 5.73 10*3/uL 1.99-6.95 IMM GRAN x10^3 (test code = 6640864227) 0.07 10*3/uL 0.00-0.06 H LYMPH x10^3 (test code = 731-0) 2.53 10*3/uL 1.09-3.23 MONO x10^3 (test code = 742-7) 1.09 10*3/uL 0.36-1.02 H EOS x10^3 (test code = 711-2) 0.09 10*3/uL 0.06-0.53 BASO x10^3 (test code = 704-7) 0.05 10*3/uL 0.01-0.09 Lab Interpretation (test code = 66884-8) [facility]normal [facility], [id number] 18:51:59* Test Item Value Reference Range Interpretation Comme nts AMMONIA (test code = 7685722242) 9-33 L Lab Interpretation (test cod e = 90036-9) Abnormal [facility] + LACTIC [id number] 18:40:53* Test Item Value Reference Range Interpretation Comme nts PH (test code = 2) 7.43 7.35-7.45 PCO2 (test code = 4033665757) 53 See_Comment H [Automated messa ge] The system which generated this result transmitted reference range: 35 - 45 mmHg. The reference range was not used to interpret this result as normal/abnormal. PO2 (test code = 1930730418) 49 See_Comment L [Automated messa ge] The system which generated this result transmitted reference range: 80 - 100 mmHg. The reference range was not used to interpret this result as normal/abnormal. HCO3 (test code = 7554090704) 34 See_Comment H [Automated messa ge] The system which generated this result transmitted reference range: 22 - 26 mEq/L. The reference range was not used to interpret this result as normal/abnormal. BE (test code = 3322706791) 7.8 See_Comment H [Automated messa ge] The system which generated this result transmitted reference range: -3.0 - 3.0 mEq/L. The reference range was not used to interpret this result as normal/abnormal. LACTIC ACID (test code = 5654578734) 0.92 mmol/L 0.50-2.20 Lab Interpretation (test code = 59656-2) Abnormal [facility] Children[facility] [id number] 18:28:26* Test Item Value Reference Range Interpretation Comme nts TROPONIN I (test code = 2945666032) 0.003 ng/mL <=0.034 OMAYRA (test code = [...] of biotin. Lab Interpretation (test code = 48385-7) Normal [facility]-TERMINAL [id number] 18:25:29* Test Item Value Reference Range Interpretation Comme nts NT-proBNP (test code = 8682424027) 376 pg/mL <=125 H OMAYRA (test code = OMAYRA) Biotin has been reported to cause a negative bias, interpret results relative to patient's use of biotin. Lab Interpretation (test code = 17488-2) Abnormal [facility] Metabolic Panel (33689)2023-01-24 18:24:03* Test Item Value Reference Range Interpretation Comme nts NA (test code = 9039842109) 135 mmol/L 135-145 K (test code = 4382187989) 4.0 mmol/L 3.5-5.0 CL (test code = 6253873844) 90 mmol/L 98-108 L CO2 TOTAL (test code = 8467033536) 43 mmol/L 23-31 H AGAP (test code = 1284332899) 2 2-16 BUN (test code = 3831961557) 12 mg/dL 7-23 GLUCOSE (test code = 6244010453) 92 mg/dL 70-110 CREATININE (test code = 2191030514) 0.58 mg/dL 0.60-1.25 L TOTAL BILI (test code = 6992574453) 1.3 mg/dL 0.1-1.1 H CALCIUM (test code = 5489483205) 8.6 mg/dL 8.6-10.6 T PROTEIN (test code = 1938027078) 6.0 g/dL 6.3-8.2 L ALBUMIN (test code = 9817746506) 3.6 g/dL 3.5-5.0 ALK PHOS (test code = 1330861153) 52 U/L 34-122 ALTv (test code = 1742-6) 17 U/L 5-50 AST(SGOT) (test code = 4109026856) 10 U/L 13-40 L eGFR (test code = 7369488841) 141.1 mL/min/1.73m2 OMAYRA (test code = OMAYRA) [...] imaging tests). Lab Interpretation (test code = 32833-9) Abnormal [facility] 18:23:38 ALCOHOL<10mg/dL01/24/2023 1:23 PM [facility]<10 Udhxymql49-099 Toxic>100 Depression of LINK TRAINER MAINTENANCE MAN>400 [facility]Un[facility] with Efibtkgmxaok1667-31-01 18:09:00* Test Item Value Reference Range Interpretation Comme nts WBC (test code = 6690-2) 7.84 See_Comment [Automated Really Simple] The system which generated this result transmitted reference range: 4.20 - 10.70 10*3/?L. The reference range was not used to interpret this result as normal/abnormal. RBC (test code = 789-8) 4.46 See_Comment [Automated Really Simple] The system which generated this result transmitted [...] g/dL 31.2-35.0 L RDW-SD (test code = 77109-3) 59.7 fL 38.5-51.6 H RDW-CV (test code = 788-0) 15.8 % 12.1-15.4 H PLT (test code = 777-3) 239 See_Comment [Automated GRAVIDIa ge] The system which generated this result transmitted reference range: 150 - 328 10*3/?L. The reference range was not used to interpret this result as normal/abnormal. MPV (test code = 14362-2) 10.5 fL 9.8-13.0 NRBC/100 WBC (test code = 6986026294) 0.0 See_Comment [Automated [employer] ssage] The system which generated this result transmitted reference range: 0.0 - 10.0 /100 WBCs. The reference range was not used to interpret this result as normal/abnormal. NRBC x10^3 (test code = 6446575716) See_Comment [Automated GRAVIDIa ge] The system which generated this result transmitted reference range: 10*3/?L. The reference range was not used to interpret this result as normal/abnormal. GRAN MAT (NEUT) % (test code = 770-8) 64.5 % IMM GRAN % (test code = 8237447195) 0.40 % LYMPH % (test code = 736-9) 23.1 % MONO % (test code = 5905-5) 9.8 % EOS % (test code = 713-8) 1.8 % BASO % (test code = 706-2) 0.4 % GRAN MAT x10^3(ANC) (test code = 8203892369) 5.06 10*3/uL 1.99-6.95 IMM GRAN x10^3 (test code = 9251957920) 0.03 10*3/uL 0.00-0.06 LYMPH x10^3 (test code = 731-0) 1.81 10*3/uL 1.09-3.23 MONO x10^3 (test code = 742-7) 0.77 10*3/uL 0.36-1.02 EOS x10^3 (test code = 711-2) 0.14 10*3/uL 0.06-0.53 BASO x10^3 (test code = 704-7) 0.03 10*3/uL 0.01-0.09 Lab Interpretation (test code = 22891-1) Abnormal [facility]. METABOLIC PANEL (18282)2023-01-21 21:33:50* Test Item Value Reference Range Interpretation Comme nts NA (test code = 7797093130) 136 mmol/L 135-145 K (test code = 6538979982) 4.3 mmol/L 3.5-5.0 CL (test code = 3229323449) 95 mmol/L 98-108 L CO2 TOTAL (test code = 8411425353) 38 mmol/L 23-31 H AGAP (test code = 2394329142) 3 2-16 BUN (test code = 7385221863) 17 mg/dL 7-23 GLUCOSE (test code = 4061485135) 102 mg/dL 70-110 CREATININE (test code = 2130571279) 0.62 mg/dL 0.60-1.25 TOTAL BILI (test code = 5498959007) 0.8 mg/dL 0.1-1.1 CALCIUM (test code = 0017143865) 7.8 mg/dL 8.6-10.6 L T PROTEIN (test code = 0864536761) 4.9 g/dL 6.3-8.2 L ALBUMIN (test code = 4923151166) 3.0 g/dL 3.5-5.0 L ALK PHOS (test code = 2204214903) 45 U/L 34-122 ALTv (test code = 1742-6) 13 U/L 5-50 AST(SGOT) (test code = 1460731790) 11 U/L 13-40 L eGFR (test code = 4258544166) 130.6 mL/min/1.73m2 OMAYRA (test code = OMAYRA) [...] imaging tests). Lab Interpretation (test code = 85316-8) [id number] 21:11:45* Test Item Value Reference Range Interpretation Comme nts TROPONIN I (test code = 4398693960) 0.019 ng/mL <=0.034 OMAYRA (test code = [...] of biotin. Lab Interpretation (test code = 35327-9) [facility] [id number] 21:08:47* Test Item Value Reference Range Interpretation Comme nts NT-proBNP (test code = 7976467754) 266 pg/mL <=125 H Hemolyzed specimen OMAYRA (test code = OMAYRA) Biotin has been reported to cause a negative bias, interpret results relative to patient's use of biotin. Lab Interpretation (test code = 13740-7) [facility]normal [facility] [id number] 20:40:24* Test Item Value Reference Range Interpretation Comme nts WBC (test code = 6690-2) 6.78 See_Comment [Automated [email or web address]] The system which generated this result transmitted reference range: 4.20 - 10.70 10*3/?L. The reference range was not used to interpret this result as normal/abnormal. RBC (test code = 789-8) 4.47 See_Comment [Automated [email or web address]] The system which generated this result transmitted [...] g/dL 31.2-35.0 L RDW-SD (test code = 33667-9) 60.4 fL 38.5-51.6 H RDW-CV (test code = 788-0) 16.2 % 12.1-15.4 H PLT (test code = 777-3) 215 See_Comment [Automated GRA[employer]Ia ge] The system which generated this result transmitted reference range: 150 - 328 10*3/?L. The reference range was not used to interpret this result as normal/abnormal. MPV (test code = 97813-7) 10.9 fL 9.8-13.0 NRBC/100 WBC (test code = 0395516666) 0.0 See_Comment [Automated me ssage] The system which generated this result transmitted reference range: 0.0 - 10.0 /100 WBCs. The reference range was not used to interpret this result as normal/abnormal. NRBC x10^3 (test code = 6423528356) See_Comment [Automated messa ge] The system which generated this result transmitted reference range: 10*3/?L. The reference range was not used to interpret this result as normal/abnormal. GRAN MAT (NEUT) % (test code = 770-8) 75.4 % IMM GRAN % (test code = 6049630003) 0.40 % LYMPH % (test code = 736-9) 15.3 % MONO % (test code = 5905-5) 7.7 % EOS % (test code = 713-8) 0.9 % BASO % (test code = 706-2) 0.3 % GRAN MAT x10^3(ANC) (test code = 7766876140) 5.11 10*3/uL 1.99-6.95 IMM GRAN x10^3 (test code = 4145722657) 0.03 10*3/uL 0.00-0.06 LYMPH x10^3 (test code = 731-0) 1.04 10*3/uL 1.09-3.23 L MONO x10^3 (test code = 742-7) 0.52 10*3/uL 0.36-1.02 EOS x10^3 (test code = 711-2) 0.06 10*3/uL 0.06-0.53 BASO x10^3 (test code = 704-7) 0.01-0.09 Lab Interpretation (test code = 25865-9) [facility] Spe-YML1284-90-03 08:49:53* Test Item Value Reference Range Interpretation Comme nts NT-proBNP (test code = 3581277397) 158 pg/mL <=125 H OMAYRA (test code = OMAYRA) Biotin has been reported to cause a negative bias, interpret results relative to patient's use of biotin. Lab Interpretation (test code = 26088-5) [facility]normal [facility]Rvqqp7115-52-76 08:44:10* Test Item Value Reference Range Interpretation Comments D-DIMER (test code = 0748709006) See_Comment [Automated message] The system which generated [...] a diagnosis. Lab Interpretation (test code = 09857-8) Normal [facility] METABOLIC PANEL (NA, K, CL, CO2, GLUCOSE, BUN, CREATININE, CA)2023-01-19 08:41:13* Test Item Value Reference Range Interpretation Comme nts NA (test code = 3926245579) 134 mmol/L 135-145 L K (test code = 4381658081) 5.3 mmol/L 3.5-5.0 H CL (test code = 9795796760) 91 mmol/L 98-108 L CO2 TOTAL (test code = 0742289543) 40 mmol/L 23-31 H AGAP (test code = 7318865091) 3 2-16 BUN (test code = 0056822208) 14 mg/dL 7-23 GLUCOSE (test code = 2839098534) 125 mg/dL 70-110 H CREATININE (test code = 2117254095) 0.64 mg/dL 0.60-1.25 CALCIUM (test code = 0976825869) 8.5 mg/dL 8.6-10.6 L eGFR (test code = 6734756952) 125.9 mL/min/1.73m2 OMAYRA (test code = OMAYRA) [...] imaging tests). Lab Interpretation (test code = 47890-0) Abnormal [facility] WITH VROP5422-72-04 08:27:33* Test Item Value Reference Range Interpretation Comme nts WBC (test code = 6690-2) 10.04 See_Comment [Automated Really Simple] The system which generated this result transmitted reference range: 4.20 - 10.70 10*3/?L. The reference range was not used to interpret this result as normal/abnormal. RBC (test code = 789-8) 4.35 See_Comment [Automated Really Simple] The system which generated this result transmitted [...] 31.2 g/dL 31.2-35.0 RDW-SD (test code = 38436-6) 58.4 fL 38.5-51.6 H RDW-CV (test code = 788-0) 15.9 % 12.1-15.4 H PLT (test code = 777-3) 211 See_Comment [Automated messa ge] The system which generated this result transmitted reference range: 150 - 328 10*3/?L. The reference range was not used to interpret this result as normal/abnormal. MPV (test code = 27325-6) 10.2 fL 9.8-13.0 NRBC/100 WBC (test code = 7189465640) 0.0 See_Comment [Automated [employer] ssage] The system which generated this result transmitted reference range: 0.0 - 10.0 /100 WBCs. The reference range was not used to interpret this result as normal/abnormal. NRBC x10^3 (test code = 7670444747) See_Comment [Automated GRAVIDIa ge] The system which generated this result transmitted reference range: 10*3/?L. The reference range was not used to interpret this result as normal/abnormal. GRAN MAT (NEUT) % (test code = 770-8) 81.2 % IMM GRAN % (test code = 2589268552) 0.50 % LYMPH % (test code = 736-9) 10.1 % MONO % (test code = 5905-5) 7.5 % EOS % (test code = 713-8) 0.5 % BASO % (test code = 706-2) 0.2 % GRAN MAT x10^3(ANC) (test code = 9439086217) 8.16 10*3/uL 1.99-6.95 H IMM GRAN x10^3 (test code = 7187682209) 0.05 10*3/uL 0.00-0.06 LYMPH x10^3 (test code = 731-0) 1.01 10*3/uL 1.09-3.23 L MONO x10^3 (test code = 742-7) 0.75 10*3/uL 0.36-1.02 EOS x10^3 (test code = 711-2) 0.05 10*3/uL 0.06-0.53 L BASO x10^3 (test code = 704-7) 0.01-0.09 Lab Interpretation (test code = 04946-4) [facility] [id number] 12:09:33* Test Item Value Reference Range Interpretation Comme nts TROPONIN I (test code = 9069388820) 0.004 ng/mL <=0.034 OMARYA (test code = OMAYRA) Reference (Normal) Range [...] of biotin. Lab Interpretation (test code = 82718-6) [facility] FZT-FTM4765-02-01 12:06:16* Test Item Value Reference Range Interpretation Comme nts NT-proBNP (test code = 8585096961) 135 pg/mL <=125 H OMAYRA (test code = OMAYRA) Biotin has been reported to cause a negative bias, interpret results relative to patient's use of biotin. Lab Interpretation (test code = 22499-7) [facility] Metabolic Panel (85512)2023-01-17 11:57:36* Test Item Value Reference Range Interpretation Comme nts NA (test code = 3214028507) 133 mmol/L 135-145 L K (test code = 4683335584) 5.0 mmol/L 3.5-5.0 CL (test code = 5230695700) 91 mmol/L 98-108 L CO2 TOTAL (test code = 0647925015) 33 mmol/L 23-31 H AGAP (test code = 2534241132) 9 2-16 BUN (test code = 6719442532) 10 mg/dL 7-23 GLUCOSE (test code = 1183834221) 104 mg/dL 70-110 CREATININE (test code = 8393672999) 0.63 mg/dL 0.60-1.25 TOTAL BILI (test code = 7448655057) 1.2 mg/dL 0.1-1.1 H CALCIUM (test code = 9405263695) 9.0 mg/dL 8.6-10.6 T PROTEIN (test code = 5074406019) 6.9 g/dL 6.3-8.2 ALBUMIN (test code = 2534705200) 4.4 g/dL 3.5-5.0 ALK PHOS (test code = 9423442499) 76 U/L 34-122 ALTv (test code = 1742-6) 13 U/L 5-50 AST(SGOT) (test code = 5110720810) 13 U/L 13-40 eGFR (test code = 1012632413) 128.2 mL/min/1.73m2 OMAYRA (test code = OMAYRA) [...] imaging tests). Lab Interpretation (test code = 38983-0) Abnormal [facility] with [id number] 11:30:52* Test Item Value Reference Range Interpretation Comme nts WBC (test code = 6690-2) 9.66 See_Comment [Automated GRAVIDIa ge] The system which generated this result transmitted reference range: 4.20 - 10.70 10*3/?L. The reference range was not used to interpret this result as normal/abnormal. RBC (test code = 789-8) 5.00 See_Comment [Automated GRAVIDIa ge] The system which generated this result [...] 31.2 g/dL 31.2-35.0 RDW-SD (test code = 95420-7) 56.6 fL 38.5-51.6 H RDW-CV (test code = 788-0) 15.4 % 12.1-15.4 PLT (test code = 777-3) 261 See_Comment [Automated GRAVIDIa ge] The system which generated this result transmitted reference range: 150 - 328 10*3/?L. The reference range was not used to interpret this result as normal/abnormal. MPV (test code = 44792-4) 10.4 fL 9.8-13.0 NRBC/100 WBC (test code = 6620524587) 0.0 See_Comment [Automated [employer] ssage] The system which generated this result transmitted reference range: 0.0 - 10.0 /100 WBCs. The reference range was not used to interpret this result as normal/abnormal. NRBC x10^3 (test code = 9979505417) See_Comment [Automated messa ge] The system which generated this result transmitted reference range: 10*3/?L. The reference range was not used to interpret this result as normal/abnormal. GRAN MAT (NEUT) % (test code = 770-8) 58.9 % IMM GRAN % (test code = 8667868099) 0.40 % LYMPH % (test code = 736-9) 28.6 % MONO % (test code = 5905-5) 10.5 % EOS % (test code = 713-8) 0.9 % BASO % (test code = 706-2) 0.7 % GRAN MAT x10^3(ANC) (test code = 4802788910) 5.69 10*3/uL 1.99-6.95 IMM GRAN x10^3 (test code = 8631533240) 0.04 10*3/uL 0.00-0.06 LYMPH x10^3 (test code = 731-0) 2.76 10*3/uL 1.09-3.23 MONO x10^3 (test code = 742-7) 1.01 10*3/uL 0.36-1.02 EOS x10^3 (test code = 711-2) 0.09 10*3/uL 0.06-0.53 BASO x10^3 (test code = 704-7) 0.07 10*3/uL 0.01-0.09 Lab Interpretation (test code = 22634-3) [facility]normal [facility] [id number]-[id number] 10:20:57* Test Item Value Reference Range Interpretation Comme nts NT-proBNP (test code = 6906751921) 473 pg/mL <=125 H OMAYRA (test code = OMAYRA) Biotin has been reported to cause a negative bias, interpret results relative to patient's use of biotin. Lab Interpretation (test code = 93946-7) [facility] ChildrenLIP[facility] PANEL (52154)(TOTAL CHOLESTEROL, TRIGLYCERIDES, HDL)2022-12-12 10:18:39* Test Item Value Reference Range Interpretation Comme nts CHOL (test code = 9291238492) 133 mg/dL 120-200 HDL (test code = 7515024243) 38 mg/dL >=40 L HDLC RATIO (test code = 7768531391) 3.5 <=5.0 TRIG (test code = 8711130034) 57 mg/dL 30-170 LDL CHOL (test code = 25438-0) 84 mg/dL <=160 VLDL (test code = 9383739149) 11 mg/dL 5-60 Lab Interpretation (test cod e = 89638-1) [facility]normal [facility]MAG[facility]UM2023-03-26 10:18:19* Test Item Value Reference Range Interpretation Comme nts MAGNESIUM (test code = 6262930174) 2.0 mg/dL 1.7-2.4 Lab Interpretation (test cod e = 36882-0) Normal [facility] [place] METABOLIC PANEL (NA, K, CL, CO2, GLUCOSE, BUN, CREATININE, CA)2022-12-12 10:18:14* Test Item Value Reference Range Interpretation Comme nts NA (test code = 5276079735) 130 mmol/L 135-145 L K (test code = 0076026465) 3.7 mmol/L 3.5-5.0 CL (test code = 2620743596) 89 mmol/L 98-108 L CO2 TOTAL (test code = 4557351251) 37 mmol/L 23-31 H AGAP (test code = 9328218733) 4 2-16 BUN (test code = 0810084879) 13 mg/dL 7-23 GLUCOSE (test code = 9146409322) 120 mg/dL 70-110 H CREATININE (test code = 7509584110) 0.56 mg/dL 0.60-1.25 L CALCIUM (test code = 0266652933) 8.3 mg/dL 8.6-10.6 L eGFR (test code = 1227741851) 146.9 mL/min/1.73m2 OMAYRA (test code = OMAYRA) [...] imaging tests). Lab Interpretation (test code = 87477-6) [facility]normal [facility] ChildrenETHANOL2023-[facility]-25 00:54:58 ALCOHOL<10mg/dL12/10/2022 7:54 PM [facility]<10 Sqligveh18-473 Toxic>100 Depression of [employer]INTE[employer] MAN>400 Fatalities ReportedTexas [facility] ChildrenTROPONIN [id number] 00:50:14* Test Item Value Reference Range Interpretation Comme nts TROPONIN I (test code = 1012378299) 0.006 ng/mL <=0.034 OMAYRA (test code = [...] of biotin. Lab Interpretation (test code = 12694-0) Normal [facility] KUL-EPR9838-57-25 00:47:12* Test Item Value Reference Range Interpretation Comme nts NT-proBNP (test code = 2552982268) 291 pg/mL <=125 H OMAYRA (test code = OMAYRA) Biotin has been reported to cause a negative bias, interpret results relative to patient's use of biotin. Lab Interpretation (test code = 71468-7) Abnormal [facility]. METABOLIC PANEL (45355)2022-12-11 00:41:12* Test Item Value Reference Range Interpretation Comme nts NA (test code = 9503025297) 126 mmol/L 135-145 L K (test code = 0413642936) 4.0 mmol/L 3.5-5.0 CL (test code = 4841662190) 82 mmol/L 98-108 L CO2 TOTAL (test code = 8625394667) 40 mmol/L 23-31 H AGAP (test code = 0140848931) 4 2-16 BUN (test code = 0914059693) 16 mg/dL 7-23 GLUCOSE (test code = 3688083775) 97 mg/dL 70-110 CREATININE (test code = 3242470732) 0.67 mg/dL 0.60-1.25 TOTAL BILI (test code = 6543796903) 0.8 mg/dL 0.1-1.1 CALCIUM (test code = 8874105327) 8.5 mg/dL 8.6-10.6 L T PROTEIN (test code = 8879835507) 5.9 g/dL 6.3-8.2 L ALBUMIN (test code = 1916475199) 3.5 g/dL 3.5-5.0 ALK PHOS (test code = 4537634851) 49 U/L 34-122 ALTv (test code = 1742-6) 18 U/L 5-50 AST(SGOT) (test code = 2403180755) 11 U/L 13-40 L eGFR (test code = 6319380679) 119.4 mL/min/1.73m2 OMAYRA (test code = OMAYRA) [...] imaging tests). Lab Interpretation (test code = 91233-8) Abnormal [facility] WITH [id number] 00:29:08* Test Item Value Reference Range Interpretation Comme nts WBC (test code = 6690-2) 10.15 See_Comment [pickrset] The system which generated this result transmitted reference range: 4.20 - 10.70 10*3/?L. The reference range was not used to interpret this result as normal/abnormal. RBC (test code = 789-8) 4.52 See_Comment [pickrset] The system which generated this result transmitted [...] 32.8 g/dL 31.2-35.0 RDW-SD (test code = 48261-0) 46.7 fL 38.5-51.6 RDW-CV (test code = 788-0) 13.6 % 12.1-15.4 PLT (test code = 777-3) 263 See_Comment [Automated messa ge] The system which generated this result transmitted reference range: 150 - 328 10*3/?L. The reference range was not used to interpret this result as normal/abnormal. MPV (test code = 74222-2) 9.7 fL 9.8-13.0 L NRBC/100 WBC (test code = 8569545064) 0.0 See_Comment [Automated [employer] ssage] The system which generated this result transmitted reference range: 0.0 - 10.0 /100 WBCs. The reference range was not used to interpret this result as normal/abnormal. NRBC x10^3 (test code = 7842484241) See_Comment [Automated messa ge] The system which generated this result transmitted reference range: 10*3/?L. The reference range was not used to interpret this result as normal/abnormal. GRAN MAT (NEUT) % (test code = 770-8) 71.6 % IMM GRAN % (test code = 7647538673) 0.90 % LYMPH % (test code = 736-9) 17.6 % MONO % (test code = 5905-5) 8.7 % EOS % (test code = 713-8) 1.0 % BASO % (test code = 706-2) 0.2 % GRAN MAT x10^3(ANC) (test code = 7114196426) 7.27 10*3/uL 1.99-6.95 H IMM GRAN x10^3 (test code = 5472644076) 0.09 10*3/uL 0.00-0.06 H LYMPH x10^3 (test code = 731-0) 1.79 10*3/uL 1.09-3.23 MONO x10^3 (test code = 742-7) 0.88 10*3/uL 0.36-1.02 EOS x10^3 (test code = 711-2) 0.10 10*3/uL 0.06-0.53 BASO x10^3 (test code = 704-7) 0.01-0.09 Lab Interpretation (test code = 12819-1) [facility]normal [facility] ChildrenLactic Acid Whole Taech4064-25-60 00:14:48* Test Item Value Reference Range Interpretation Comme nts LACTIC ACID (test code = 6002369264) 1.30 mmol/L 0.50-2.20 Lab Interpretation (test cod e = 36456-4) Normal [facility] METABOLIC PANEL (NA, K, CL, CO2, GLUCOSE, BUN, CREATININE, CA)2022-12-04 11:06:33* Test Item Value Reference Range Interpretation Comme nts NA (test code = 6866106265) 123 mmol/L 135-145 L K (test code = 3538632000) 3.8 mmol/L 3.5-5.0 CL (test code = 5422602572) 86 mmol/L 98-108 L CO2 TOTAL (test code = 7548514502) 36 mmol/L 23-31 H AGAP (test code = 9790023177) 1 2-16 L BUN (test code = 2513566547) 22 mg/dL 7-23 GLUCOSE (test code = 8456733919) 195 mg/dL 70-110 H CREATININE (test code = 6858078550) 0.76 mg/dL 0.60-1.25 CALCIUM (test code = 7566835825) 8.2 mg/dL 8.6-10.6 L eGFR (test code = 4298926605) 103.3 mL/min/1.73m2 OMAYRA (test code = OMAYRA) [...] imaging tests). Lab Interpretation (test code = 96240-6) Abnormal [facility] WITH [id number] 10:54:29* Test Item Value Reference Range Interpretation Comme nts WBC (test code = 6690-2) 8.54 See_Comment [Automated [employer]] The system which generated this result transmitted reference range: 4.20 - 10.70 10*3/?L. The reference range was not used to interpret this result as normal/abnormal. RBC (test code = 789-8) 4.17 See_Comment L [Automated [employer]] The system which generated this result transmitted [...] 34.1 g/dL 31.2-35.0 RDW-SD (test code = 34192-5) 44.1 fL 38.5-51.6 RDW-CV (test code = 788-0) 13.6 % 12.1-15.4 PLT (test code = 777-3) 247 See_Comment [Automated GRAVIDIa ge] The system which generated this result transmitted reference range: 150 - 328 10*3/?L. The reference range was not used to interpret this result as normal/abnormal. MPV (test code = 11210-0) 9.5 fL 9.8-13.0 L NRBC/100 WBC (test code = 4937714180) 0.0 See_Comment [Automated [employer] ssage] The system which generated this result transmitted reference range: 0.0 - 10.0 /100 WBCs. The reference range was not used to interpret this result as normal/abnormal. NRBC x10^3 (test code = 8785905148) See_Comment [Automated GRAVIDIa ge] The system which generated this result transmitted reference range: 10*3/?L. The reference range was not used to interpret this result as normal/abnormal. GRAN MAT (NEUT) % (test code = 770-8) 93.0 % IMM GRAN % (test code = 5926040213) 0.90 % LYMPH % (test code = 736-9) 3.2 % MONO % (test code = 5905-5) 2.9 % EOS % (test code = 713-8) 0.0 % BASO % (test code = 706-2) 0.0 % GRAN MAT x10^3(ANC) (test code = 1718861498) 7.94 10*3/uL 1.99-6.95 H IMM GRAN x10^3 (test code = 2180318329) 0.08 10*3/uL 0.00-0.06 H LYMPH x10^3 (test code = 731-0) 0.27 10*3/uL 1.09-3.23 L MONO x10^3 (test code = 742-7) 0.25 10*3/uL 0.36-1.02 L EOS x10^3 (test code = 711-2) 0.06-0.53 L BASO x10^3 (test code = 704-7) 0.01-0.09 Lab Interpretation (test code = 38270-8) Abnormal [facility] Metabolic Panel (NA, K, CL, CO2, GLUCOSE, BUN, CREATININE, CA)2022-12-03 10:44:53* Test Item Value Reference Range Interpretation Comme nts NA (test code = 0637456139) 126 mmol/L 135-145 L K (test code = 9182562820) 4.0 mmol/L 3.5-5.0 Slight hemolysis CL (test code = 5589815869) 89 mmol/L 98-108 L CO2 TOTAL (test code = 0216091102) 32 mmol/L 23-31 H AGAP (test code = 6435893026) 5 2-16 BUN (test code = 7024909916) 15 mg/dL 7-23 Slight hemolysis GLUCOSE (test code = 5055868631) 115 mg/dL 70-110 H CREATININE (test code = 0306354433) 0.63 mg/dL 0.60-1.25 CALCIUM (test code = 9181919052) 7.7 mg/dL 8.6-10.6 L eGFR (test code = 9949738339) 128.2 mL/min/1.73m2 OMAYRA (test code = OMAYRA) [...] imaging tests). Lab Interpretation (test code = 75135-3) [facility] ChildrenMagn[facility] Wdspr9515-73-99 10:44:53* Test Item Value Reference Range Interpretation Comme nts MAGNESIUM (test code = 3241759963) 1.6 mg/dL 1.7-2.4 L Lab Interpretation (test cod e = 91545-1) [facility]normal [facility] ChildrenCB with Tocveuamubap9809-44-26 10:39:13* Test Item Value Reference Range Interpretation [...] 33.1 g/dL 31.2-35.0 RDW-SD (test code = 25757-4) 45.4 fL 38.5-51.6 RDW-CV (test code = 788-0) 13.6 % 12.1-15.4 PLT (test code = 777-3) 254 See_Comment [Automated message] The system which generated this result transmitted reference range: 150 - 328 10*3/?L. The reference range was not used to interpret this result as normal/abnormal. MPV (test code = 51340-6) 10.2 fL 9.8-13.0 NRBC/100 WBC (test code = 3445775309) 0.0 See_Comment [Automated message] The system which generated this result transmitted reference range: 0.0 - 10.0 /100 WBCs. The reference range was not used to interpret this result as normal/abnormal. NRBC x10^3 (test code = 7450793998) See_Comment [Automated message] The system which generated this result transmitted reference range: 10*3/?L. The reference range was not used to interpret this result as normal/abnormal. GRAN MAT (NEUT) % (test code = 770-8) 90.0 % IMM GRAN % (test code = 4778731813) 0.90 % LYMPH % (test code = 736-9) 5.9 % MONO % (test code = 5905-5) 2.8 % EOS % (test code = 713-8) 0.2 % BASO % (test code = 706-2) 0.2 % GRAN MAT x10^3(ANC) (test code = 0532082008) 10.27 10*3/uL 1.99-6.95 H IMM GRAN x10^3 (test code = 0122442200) 0.10 10*3/uL 0.00-0.06 H LYMPH x10^3 (test code = 731-0) 0.67 10*3/uL 1.09-3.23 L MONO x10^3 (test code = 742-7) 0.32 10*3/uL 0.36-1.02 L EOS x10^3 (test code = 711-2) 0.06-0.53 L BASO x10^3 (test code = 704-7) 0.01-0.09 Lab Interpretation (test code = 69432-6) Abnormal [facility] [place] METABOLIC PANEL (NA, K, CL, CO2, GLUCOSE, BUN, CREATININE, CA)2022-12-02 06:20:42* Test Item Value Reference Range Interpretation Comme nts NA (test code = 9586530806) 124 mmol/L 135-145 L K (test code = 9129556882) 4.5 mmol/L 3.5-5.0 CL (test code = 1921145327) 78 mmol/L 98-108 L CO2 TOTAL (test code = 9587111198) 37 mmol/L 23-31 H AGAP (test code = 0722967162) 9 2-16 BUN (test code = 5065296597) 14 mg/dL 7-23 GLUCOSE (test code = 1323606757) 93 mg/dL 70-110 CREATININE (test code = 4076382809) 0.71 mg/dL 0.60-1.25 CALCIUM (test code = 5019326821) 9.1 mg/dL 8.6-10.6 eGFR (test code = 0352347911) 111.7 mL/min/1.73m2 OMAYRA (test code = OMAYRA) [...] imaging tests). Lab Interpretation (test code = 57415-5) [facility] ChildrenNELA [id number] 12:22:32* Test Item Value Reference Range Interpretation Comme nts TROPONIN I (test code = 8981385114) 0.008 ng/mL <=0.034 OMAYRA (test code = [...] of biotin. Lab Interpretation (test code = 19813-2) Normal [facility] METABOLIC PANEL (NA, K, CL, CO2, GLUCOSE, BUN, CREATININE, CA)2022-12-01 12:11:11* Test Item Value Reference Range Interpretation Comme [facility] (test code = 0266915575) 124 mmol/L 135-145 L K (test code = 6221041199) 4.2 mmol/L 3.5-5.0 CL (test code = 7167749095) 79 mmol/L 98-108 L CO2 TOTAL (test code = 5199043854) 37 mmol/L 23-31 H AGAP (test code = 9690221240) 8 2-16 BUN (test code = 5323307139) 16 mg/dL 7-23 GLUCOSE (test code = 8710307729) 105 mg/dL 70-110 CREATININE (test code = 3807105133) 0.67 mg/dL 0.60-1.25 CALCIUM (test code = 2869553347) 8.6 mg/dL 8.6-10.6 eGFR (test code = 2936313849) 119.4 mL/min/1.73m2 OMAYRA (test code = OMAYRA) [...] imaging tests). Lab Interpretation (test code = 94481-1) Abnormal [facility] WITH [id number] 11:59:32* Test Item Value Reference Range Interpretation [...] 32.9 g/dL 31.2-35.0 RDW-SD (test code = 70124-6) 43.8 fL 38.5-51.6 RDW-CV (test code = 788-0) 13.2 % 12.1-15.4 PLT (test code = 777-3) 208 See_Comment [Automated message] The system which generated this result transmitted reference range: 150 - 328 10*3/?L. The reference range was not used to interpret this result as normal/abnormal. MPV (test code = 61255-5) 9.8 fL 9.8-13.0 NRBC/100 WBC (test code = 4275276381) 0.0 See_Comment [Automated message] The system which generated this result transmitted reference range: 0.0 - 10.0 /100 WBCs. The reference range was not used to interpret this result as normal/abnormal. NRBC x10^3 (test code = 2953747130) See_Comment [Automated message] The system which generated this result transmitted reference range: 10*3/?L. The reference range was not used to interpret this result as normal/abnormal. GRAN MAT (NEUT) % (test code = 770-8) 85.9 % IMM GRAN % (test code = 3215949692) 0.50 % LYMPH % (test code = 736-9) 6.8 % MONO % (test code = 5905-5) 6.3 % EOS % (test code = 713-8) 0.3 % BASO % (test code = 706-2) 0.2 % GRAN MAT x10^3(ANC) (test code = 6226653701) 10.44 10*3/uL 1.99-6.95 H IMM GRAN x10^3 (test code = 6109739364) 0.06 10*3/uL 0.00-0.06 LYMPH x10^3 (test code = 731-0) 0.83 10*3/uL 1.09-3.23 L MONO x10^3 (test code = 742-7) 0.77 10*3/uL 0.36-1.02 EOS x10^3 (test code = 711-2) 0.04 10*3/uL 0.06-0.53 L BASO x10^3 (test code = 704-7) 0.03 10*3/uL 0.01-0.09 Lab Interpretation (test code = 18041-4) [facility]NA, K, CL, CO2, GLUCOSE, BUN, CREATININE, CA)2022-11-28 17:17:23* Test Item Value Reference Range Interpretation Comme nts NA (test code = 1946595039) 120 mmol/L 135-145 L K (test code = 0202585116) 4.3 mmol/L 3.5-5.0 CL (test code = 6452604762) 77 mmol/L 98-108 L CO2 TOTAL (test code = 3512448935) 40 mmol/L 23-31 H AGAP (test code = 1700651201) 3 2-16 BUN (test code = 6293577122) 15 mg/dL 7-23 GLUCOSE (test code = 7297430803) 151 mg/dL 70-110 H CREATININE (test code = 1924449062) 0.63 mg/dL 0.60-1.25 CALCIUM (test code = 8350853109) 8.2 mg/dL 8.6-10.6 L eGFR (test code = 6679950976) 128.2 mL/min/1.73m2 OMAYRA (test code = OMAYRA) [...] imaging tests). Lab Interpretation (test code = 60654-5) [facility]:10* Test Item Value Reference Range Interpretation Comme nts MAGNESIUM (test code = 2467606347) 1.6 mg/dL 1.7-2.4 L Lab Interpretation (test cod e = 33956-8) [facility]normal [facility] (NA, K, CL, CO2, GLUCOSE, BUN, CREATININE, CA)2022-11-28 01:29:53* Test Item Value Reference Range Interpretation Comme nts NA (test code = 2756354537) 120 mmol/L 135-145 L K (test code = 9807099201) 3.9 mmol/L 3.5-5.0 CL (test code = 4612583653) 77 mmol/L 98-108 L CO2 TOTAL (test code = 6280376998) 36 mmol/L 23-31 H AGAP (test code = 7489370868) 7 2-16 BUN (test code = 5865072659) 17 mg/dL 7-23 GLUCOSE (test code = 7832684929) 85 mg/dL 70-110 CREATININE (test code = 9248808954) 0.76 mg/dL 0.60-1.25 CALCIUM (test code = 9875426673) 8.3 mg/dL 8.6-10.6 L eGFR (test code = 7120603578) 103.3 mL/min/1.73m2 OMAYRA (test code = OMAYRA) [...] imaging tests). Lab Interpretation (test code = 18033-1) Abnormal [facility] METABOLIC PANEL (NA, K, CL, CO2, GLUCOSE, BUN, CREATININE, CA)2022-11-27 20:36:26* Test Item Value Reference Range Interpretation Comme nts NA (test code = 3608403471) 122 mmol/L 135-145 L K (test code = 1556355900) 3.9 mmol/L 3.5-5.0 CL (test code = 8721990293) 79 mmol/L 98-108 L CO2 TOTAL (test code = 4155459036) 37 mmol/L 23-31 H AGAP (test code = 7478819471) 6 2-16 BUN (test code = 0981424859) 17 mg/dL 7-23 GLUCOSE (test code = 3266110540) 113 mg/dL 70-110 H CREATININE (test code = 0600438548) 0.78 mg/dL 0.60-1.25 CALCIUM (test code = 9232158580) 7.8 mg/dL 8.6-10.6 L eGFR (test code = 8258773072) 100.2 mL/min/1.73m2 OMAYRA (test code = OMAYRA) [...] imaging tests). Lab Interpretation (test code = 28334-0) [facility]A1C)2022-11-27 18:21:30* Test Item Value Reference Range Interpretation Comme nts HGB A1C (test code = 4548-4) 5.9 % 4.0-5.7 H OMAYRA (test code = OMAYRA) Reference RangesNormal: <5.7%Prediabetes: 5.7 - 6.4%Diabetes: > 6.5% Lab Interpretation (test code = 48258-7) [facility]normal [facility]TR[facility] [id number] 06:12:58* Test Item Value Reference Range Interpretation Comme nts TROPONIN I (test code = 1811616890) 0.007 ng/mL <=0.034 OMAYRA (test code = [...] of biotin. Lab Interpretation (test code = 18245-4) Normal [facility] 06:10:43 ALCOHOL<10mg/dL11/27/2022 12:10 AM [facility]<10 Gvyvwwwn28-556 Toxic>100 Depression of [employer]TE[employer] MAN>400 Fatalities ReportedTexas [facility] ChildrenN-TERMINAL [id number] 06:09:37* Test Item Value Reference Range Interpretation Comme nts NT-proBNP (test code = 7644712942) 311 pg/mL <=125 H OMAYRA (test code = OMAYRA) Biotin has been reported to cause a negative bias, interpret results relative to patient's use of biotin. Lab Interpretation (test code = 86602-8) [facility]OL[facility] PAN[facility] (10068)2022-11-27 06:08:02* Test Item Value Reference Range Interpretation Comme nts NA (test code = 5471240573) 116 mmol/L 135-145 LL K (test code = 1005012308) 4.1 mmol/L 3.5-5.0 CL (test code = 6834244877) 75 mmol/L 98-108 L CO2 TOTAL (test code = 4427855409) 34 mmol/L 23-31 H AGAP (test code = 5794302031) 7 2-16 BUN (test code = 3934959212) 16 mg/dL 7-23 GLUCOSE (test code = 9093580819) 70 mg/dL 70-110 CREATININE (test code = 1575156748) 0.62 mg/dL 0.60-1.25 TOTAL BILI (test code = 5325923030) 1.2 mg/dL 0.1-1.1 H CALCIUM (test code = 7776639114) 8.1 mg/dL 8.6-10.6 L T PROTEIN (test code = 0960577999) 6.3 g/dL 6.3-8.2 ALBUMIN (test code = 3989068382) 3.8 g/dL 3.5-5.0 ALK PHOS (test code = 2254469665) 58 U/L 34-122 ALTv (test code = 1742-6) 15 U/L 5-50 AST(SGOT) (test code = 6476563284) 13 U/L 13-40 eGFR (test code = 9063943661) 130.6 mL/min/1.73m2 OMAYRA (test code = OMAYRA) [...] imaging tests). Lab Interpretation (test code = 11667-1) Abnormal [facility] WITH [id number] 05:45:18* Test Item Value Reference Range Interpretation Comme nts WBC (test code = 6690-2) 9.18 See_Comment [Automated [employer]] The system which generated this result transmitted [...] 34.8 g/dL 31.2-35.0 RDW-SD (test code = 33179-6) 40.1 fL 38.5-51.6 RDW-CV (test code = 788-0) 12.6 % 12.1-15.4 PLT (test code = 777-3) 216 See_Comment [Automated GRAVIDIa ge] The system which generated this result transmitted reference range: 150 - 328 10*3/?L. The reference range was not used to interpret this result as normal/abnormal. MPV (test code = 45723-3) 9.4 fL 9.8-13.0 L NRBC/100 WBC (test code = 2671921846) 0.0 See_Comment [Automated [employer] ssage] The system which generated this result transmitted reference range: 0.0 - 10.0 /100 WBCs. The reference range was not used to interpret this result as normal/abnormal. NRBC x10^3 (test code = 9521789625) See_Comment [Automated messa ge] The system which generated this result transmitted reference range: 10*3/?L. The reference range was not used to interpret this result as normal/abnormal. GRAN MAT (NEUT) % (test code = 770-8) 79.1 % IMM GRAN % (test code = 7627180317) 0.90 % LYMPH % (test code = 736-9) 11.8 % MONO % (test code = 5905-5) 6.8 % EOS % (test code = 713-8) 1.2 % BASO % (test code = 706-2) 0.2 % GRAN MAT x10^3(ANC) (test code = 0383165317) 7.27 10*3/uL 1.99-6.95 H IMM GRAN x10^3 (test code = 1599341733) 0.08 10*3/uL 0.00-0.06 H LYMPH x10^3 (test code = 731-0) 1.08 10*3/uL 1.09-3.23 L MONO x10^3 (test code = 742-7) 0.62 10*3/uL 0.36-1.02 EOS x10^3 (test code = 711-2) 0.11 10*3/uL 0.06-0.53 BASO x10^3 (test code = 704-7) 0.01-0.09 Lab Interpretation (test code = 13288-7) Abnormal [facility] [id number] 09:49:54* Test Item Value Reference Range Interpretation Comme nts NT-proBNP (test code = 8676531541) 294 pg/mL <=125 H OMAYRA (test code = OMAYRA) Biotin has been reported to cause a negative bias, interpret results relative to patient's use of biotin. Lab Interpretation (test code = 91458-8) [facility]normal [facility]OLIC PANEL (15429)2022-11-19 09:41:52* Test Item Value Reference Range Interpretation Comme nts NA (test code = 0811153123) 120 mmol/L 135-145 L K (test code = 6587590621) 4.4 mmol/L 3.5-5.0 CL (test code = 8425196216) 80 mmol/L 98-108 L CO2 TOTAL (test code = 6792167993) 34 mmol/L 23-31 H AGAP (test code = 7203730120) 6 2-16 BUN (test code = 2810359750) 10 mg/dL 7-23 GLUCOSE (test code = 6828189616) 93 mg/dL 70-110 CREATININE (test code = 6540773661) 0.77 mg/dL 0.60-1.25 TOTAL BILI (test code = 9066455384) 1.1 mg/dL 0.1-1.1 CALCIUM (test code = 2701679788) 8.7 mg/dL 8.6-10.6 T PROTEIN (test code = 8193595853) 6.9 g/dL 6.3-8.2 ALBUMIN (test code = 9746164959) 4.1 g/dL 3.5-5.0 ALK PHOS (test code = 6819834446) 60 U/L 34-122 ALTv (test code = 1742-6) 14 U/L 5-50 AST(SGOT) (test code = 2945185463) 13 U/L 13-40 eGFR (test code = 8826867573) 101.7 mL/min/1.73m2 OMAYRA (test code = OMAYRA) [...] imaging tests). Lab Interpretation (test code = 85012-8) Abnormal [facility] WITH [id number] 09:02:29* Test Item Value Reference Range Interpretation [...] 33.7 g/dL 31.2-35.0 RDW-SD (test code = 21910-3) 42.3 fL 38.5-51.6 RDW-CV (test code = 788-0) 12.9 % 12.1-15.4 PLT (test code = 777-3) 252 See_Comment [Automated messa ge] The system which generated this result transmitted reference range: 150 - 328 10*3/?L. The reference range was not used to interpret this result as normal/abnormal. MPV (test code = 24974-6) 9.6 fL 9.8-13.0 L NRBC/100 WBC (test code = 3922514516) 0.0 See_Comment [Automated [employer] ssage] The system which generated this result transmitted reference range: 0.0 - 10.0 /100 WBCs. The reference range was not used to interpret this result as normal/abnormal. NRBC x10^3 (test code = 0142256057) See_Comment [Automated messa ge] The system which generated this result transmitted reference range: 10*3/?L. The reference range was not used to interpret this result as normal/abnormal. GRAN MAT (NEUT) % (test code = 770-8) 70.7 % IMM GRAN % (test code = 1329602823) 1.00 % LYMPH % (test code = 736-9) 16.0 % MONO % (test code = 5905-5) 10.5 % EOS % (test code = 713-8) 1.3 % BASO % (test code = 706-2) 0.5 % GRAN MAT x10^3(ANC) (test code = 3981747742) 5.87 10*3/uL 1.99-6.95 IMM GRAN x10^3 (test code = 4474998878) 0.08 10*3/uL 0.00-0.06 H LYMPH x10^3 (test code = 731-0) 1.33 10*3/uL 1.09-3.23 MONO x10^3 (test code = 742-7) 0.87 10*3/uL 0.36-1.02 EOS x10^3 (test code = 711-2) 0.11 10*3/uL 0.06-0.53 BASO x10^3 (test code = 704-7) 0.04 10*3/uL 0.01-0.09 Lab Interpretation (test code = 49814-5) Abnormal [facility] METABOLIC PANEL (NA, K, CL, CO2, GLUCOSE, BUN, CREATININE, CA)2022-11-10 23:42:55* Test Item Value Reference Range Interpretation Comme nts NA (test code = 5728537323) 121 mmol/L 135-145 L K (test code = 3530985891) 4.7 mmol/L 3.5-5.0 CL (test code = 2312378110) 82 mmol/L 98-108 L CO2 TOTAL (test code = 2033101558) 34 mmol/L 23-31 H AGAP (test code = 9675647864) 5 2-16 BUN (test code = 2478191691) 15 mg/dL 7-23 GLUCOSE (test code = 4527803208) 120 mg/dL 70-110 H CREATININE (test code = 8055368342) 0.75 mg/dL 0.60-1.25 CALCIUM (test code = 3403665749) 7.7 mg/dL 8.6-10.6 L eGFR (test code = 1033095568) 104.8 mL/min/1.73m2 OMAYRA (test code = OMAYRA) [...] imaging tests). Lab Interpretation (test code = 35961-3) Abnormal [facility] METABOLIC PANEL (NA, K, CL, CO2, GLUCOSE, BUN, CREATININE, CA)2022-11-10 17:59:59* Test Item Value Reference Range Interpretation Comme nts NA (test code = 2344872158) 121 mmol/L 135-145 L K (test code = 1333535441) 4.3 mmol/L 3.5-5.0 CL (test code = 4682989636) 81 mmol/L 98-108 L CO2 TOTAL (test code = 6943011157) 38 mmol/L 23-31 H AGAP (test code = 5605424994) 2 2-16 BUN (test code = 9187669632) 15 mg/dL 7-23 GLUCOSE (test code = 8945188660) 113 mg/dL 70-110 H CREATININE (test code = 1653198212) 0.74 mg/dL 0.60-1.25 CALCIUM (test code = 1553332452) 7.5 mg/dL 8.6-10.6 L eGFR (test code = 0012549870) 106.5 mL/min/1.73m2 OMAYRA (test code = OMAYRA) [...] imaging tests). Lab Interpretation (test code = 55834-8) [facility]normal [facility] [id number] 13:08:23* Test Item Value Reference Range Interpretation Comme nts NT-proBNP (test code = 2767160909) 177 pg/mL <=125 H OMAYRA (test code = OMAYRA) Biotin has been reported to cause a negative bias, interpret results relative to patient's use of biotin. Lab Interpretation (test code = 28141-1) [facility]normal [facility]TR[facility] [id number] 08:23:33* Test Item Value Reference Range Interpretation Comme nts TROPONIN I (test code = 4960800403) 0.004 ng/mL <=0.034 OMAYRA (test code = [...] of biotin. Lab Interpretation (test code = 75615-9) [facility]OLIC PANEL (61226)2022-11-09 08:12:09* Test Item Value Reference Range Interpretation Comme nts NA (test code = 4722917039) 123 mmol/L 135-145 L K (test code = 3423172502) 4.2 mmol/L 3.5-5.0 CL (test code = 3388733320) 78 mmol/L 98-108 L CO2 TOTAL (test code = 5024111681) 34 mmol/L 23-31 H AGAP (test code = 7003594447) 11 2-16 BUN (test code = 5533764097) 8 mg/dL 7-23 GLUCOSE (test code = 1382630671) 113 mg/dL 70-110 H CREATININE (test code = 9080554194) 0.87 mg/dL 0.60-1.25 TOTAL BILI (test code = 2163223466) 1.2 mg/dL 0.1-1.1 H CALCIUM (test code = 9688325549) 8.8 mg/dL 8.6-10.6 T PROTEIN (test code = 5954152947) 7.6 g/dL 6.3-8.2 ALBUMIN (test code = 5064054012) 4.5 g/dL 3.5-5.0 ALK PHOS (test code = 2049626458) 72 U/L 34-122 ALTv (test code = 1742-6) 13 U/L 5-50 AST(SGOT) (test code = 6462853901) 13 U/L 13-40 eGFR (test code = 7542827647) 88.3 mL/min/1.73m2 OMAYRA (test code = OMAYRA) [...] imaging tests). Lab Interpretation (test code = 62269-3) Abnormal [facility] ChildrenLIPASE, [id number] 08:11:14* Test Item Value Reference Range Interpretation Comme nts LIPASE (test code = 6316087024) 108 U/L 0-220 Lab Interpretation (test cod e = 35210-9) Normal [facility] ChildrenCB WITH [id number] 07:59:28* Test Item Value Reference Range Interpretation Comme nts WBC (test code = 6690-2) 8.95 See_Comment [Automated GRAVIDIa [email or web address]] The system which generated this result transmitted reference range: 4.20 - 10.70 10*3/?L. The reference range was not used to interpret this result as normal/abnormal. RBC (test code = 789-8) 5.07 See_Comment [Automated [email or web address]] The system which generated this result transmitted [...] 32.8 g/dL 31.2-35.0 RDW-SD (test code = 11448-7) 41.1 fL 38.5-51.6 RDW-CV (test code = 788-0) 12.5 % 12.1-15.4 PLT (test code = 777-3) 235 See_Comment [Automated [email or web address]] The system which generated this result transmitted reference range: 150 - 328 10*3/?L. The reference range was not used to interpret this result as normal/abnormal. MPV (test code = 24727-9) 9.8 fL 9.8-13.0 NRBC/100 WBC (test code = 4423010108) 0.0 See_Comment [Automated [employer] ssage] The system which generated this result transmitted reference range: 0.0 - 10.0 /100 WBCs. The reference range was not used to interpret this result as normal/abnormal. NRBC x10^3 (test code = 0028363490) See_Comment [Automated [employer] ssage] The system which generated this result transmitted reference range: 10*3/?L. The reference range was not used to interpret this result as normal/abnormal. GRAN MAT (NEUT) % (test code = 770-8) 56.9 % IMM GRAN % (test code = 0855372174) 0.40 % LYMPH % (test code = 736-9) 29.4 % MONO % (test code = 5905-5) 9.5 % EOS % (test code = 713-8) 3.0 % BASO % (test code = 706-2) 0.8 % GRAN MAT x10^3(ANC) (test code = 8371784510) 5.09 10*3/uL 1.99-6.95 IMM GRAN x10^3 (test code = 7660057407) 0.04 10*3/uL 0.00-0.06 LYMPH x10^3 (test code = 731-0) 2.63 10*3/uL 1.09-3.23 MONO x10^3 (test code = 742-7) 0.85 10*3/uL 0.36-1.02 EOS x10^3 (test code = 711-2) 0.27 10*3/uL 0.06-0.53 BASO x10^3 (test code = 704-7) 0.07 10*3/uL 0.01-0.09 [facility], [id number] 19:05:00 * Test Item Value Reference Range [...] 3267) [facility] [id number] 19:05:00 * Test Item Value Reference Range [...] U APPEAR (test code = 3267) clear [facility] URINALYSIS, [id number] 19:05:00 * Test Item Value Reference Range [...] code = 3267) clear [facility] ABDOMEN PELVIS W [id number] 17:53:531. ?No hydronephrosis or nephrolithiasis. 2. ?Mild [...] hernia with mild circumferential distalesophageal thickening (2:16). [place] density within the distal stomach andat the [...] hernia with mild circumferential distalesophageal thickening (2:16). [place] density within the distal stomach andat the [...] small right hydrocele.5. Additional findings as above. [facility] [id number] 17:37:38* Test Item Value Reference Range Interpretation Comme nts APPEARANCE (test code = 8016691621) Cloudy Clear A COLOR (test code = 5808970374) Red Yellow A PH (test code = 4166654318) 4.8-8.0 SP GRAVITY (test code = 5113060179) 1.003-1.030 GLU U QUAL (test code = 5825131514) 50 mg/dL Normal A BLOOD (test code = 2814946238) 3+ Negative A KETONES (test code = 4783999817) Negative Negative PROTEIN (test code = 2887-8) 100 mg/dL Negative A UROBILIN (test code = 6916432284) Normal Normal BILIRUBIN (test code = 4979337223) Negative Negative NITRITE (test code = 2383398782) Negative Negative LEUK DIANELYS (test code = 7287245038) Negative Negative RBC/HPF (test code = 8784621833) >182 See_Comment H [Automated messa ge] The system which generated this result transmitted reference range: 0 - 3 HPF. The reference range was not used to interpret this result as normal/abnormal. WBC/HPF (test code = 5548605297) >182 See_Comment H [Automated messa ge] The system which generated this result transmitted reference range: 0 - 5 HPF. The reference range was not used to interpret this result as normal/abnormal. BACTERIA (test code = 5688417433) Moderate Negative A WBC CLUMPS (test code = 4106967262) See_Comment H [Automated messa ge] The system which generated this result transmitted reference range: <=1 HPF. The reference range was not used to interpret this result as normal/abnormal. Lab Interpretation (test code = 31466-6) Abnormal [facility] Metabolic Panel (NA, K, CL, CO2, GLUCOSE, BUN, CREATININE, CA)2020-12-12 17:13:57* Test Item Value Reference Range Interpretation Comme nts NA (test code = 5485247366) 140 mmol/L 135-145 K (test code = 3172772306) 4.5 mmol/L 3.5-5.0 CL (test code = 7633129262) 100 mmol/L 98-108 CO2 TOTAL (test code = 3512249727) 35 mmol/L 23-31 H AGAP (test code = 9731070122) 2-16 BUN (test code = 7299705598) 25 mg/dL 7-23 H GLUCOSE (test code = 4392098051) 114 mg/dL 70-110 H CREATININE (test code = 1395505833) 1.18 mg/dL 0.60-1.25 CALCIUM (test code = 1829312159) 9.0 mg/dL 8.6-10.6 eGFR Calculation (Non-) (test code = 8585930207) mL/min/1.73m2 eGFR Calculation () (test code = 8945397853) mL/min/1.73m2 OMAYRA (test code = OMAYRA) Association [...] imaging tests). Lab Interpretation (test code = 32617-2) Abnormal [facility] with [id number] 16:56:10* Test Item Value Reference Range Interpretation Comme nts WBC (test code = 6690-2) See_Comment [Automated [employer]] The system which generated this result transmitted [...] 32.8 g/dL 31.2-35.0 RDW-SD (test code = 98775-0) 42.9 fL 38.5-51.6 RDW-CV (test code = 788-0) 11.9 % 12.1-15.4 L PLT (test code = 777-3) See_Comment [Automated GRAVIDIa ge] The system which generated this result transmitted reference range: 150 - 328 10*3/?L. The reference range was not used to interpret this result as normal/abnormal. MPV (test code = 63719-1) 10.8 fL 9.8-13.0 NRBC/100 WBC (test code = 8332833774) See_Comment [Automated [employer] ssage] The system which generated this result transmitted reference range: 0.0 - 10.0 /100 WBCs. The reference range was not used to interpret this result as normal/abnormal. NRBC x10^3 (test code = 9198057246) <0.01 See_Comment [Automated messa ge] The system which generated this result transmitted reference range: 10*3/?L. The reference range was not used to interpret this result as normal/abnormal. GRAN MAT (NEUT) % (test code = 770-8) 63.5 % IMM GRAN % (test code = 6361488092) 0.40 % LYMPH % (test code = 736-9) 23.9 % MONO % (test code = 5905-5) 6.7 % EOS % (test code = 713-8) 4.3 % BASO % (test code = 706-2) 1.2 % GRAN MAT x10^3(ANC) (test code = 6648307795) 4.27 10*3/uL 1.99-6.95 IMM GRAN x10^3 (test code = 0775454846) 0.03 10*3/uL 0.00-0.06 LYMPH x10^3 (test code = 731-0) 1.61 10*3/uL 1.09-3.23 MONO x10^3 (test code = 742-7) 0.45 10*3/uL 0.36-1.02 EOS x10^3 (test code = 711-2) 0.29 10*3/uL 0.06-0.53 BASO x10^3 (test code = 704-7) 0.08 10*3/uL 0.01-0.09 Lab Interpretation (test code = 28642-0) [facility] [id number] 18:56:00 * Test Item Value Reference Range [...] turbid Lab Interpretation (test cod e = 29985-9) [facility] [id number] 18:56:00 * Test Item Value Reference Range [...] turbid Lab Interpretation (test cod e = 49890-1) Abnormal [facility]
[2023-09-11 12:45] LABS: Absolute Lymphocytes (CBC) 1.4 K/uL (0.7-4.9); Hematocrit 38.7 % (39.6-49.0); Lymphocytes % 10.3 % (15.3-44.8); MCV 98.5 fL (80-100); MPV 8.2 fL (7.6-11.3); Platelets 206 thou/uL (152-406); RBC Red Blood Cell Count 3.93 M/uL (4.33-5.43)
[2023-09-11 13:09] LABS: ALT/SGPT 18 U/L (16-61); Albumin 3.1 g/dL (3.4-5.0); Alkaline Phosphatase 56 U/L (45-117); BUN Blood Urea Nitrogen 35 mg/dL (7-18); Bicarbonate 42 mEq/L (21-32); Bilirubin Direct 0.1 mg/dL (0-0.2); Bilirubin Indirect, Calculated 0.3 mg/dL (0.2-0.8); Bilirubin Total 0.4 mg/dL (0.2-1.0); Glomerular Filtration Rate 98 ml/min (=/>90); Glucose Level 114 mg/dL (74-106); Magnesium 2.2 mg/dL (1.6-2.4); Protein, Total 6.1 g/dL (6.4-8.2); Sodium Level 141 mEq/L (136-145); Troponin High Sensitivity 7.8 pg/mL (<58.9)
--- NOTE | 2023-09-11 13:12 | RAD REPORT ---
EXAM DESCRIPTION: RADChest Single View09/11/2023 12:53 pm CLINICAL HISTORY: COPD COMPARISON: Chest Single View dated 09/08/2023; Chest Single View dated 08/27/2023; Chest Single View dated 08/19/2023; Chest Single View dated 07/04/2023 TECHNIQUE: Portable AP view of the chest. FINDINGS: The lungs are clear.Hyperlucency and hyperinflation suggestive COPD. Left chest wall pacer unchanged in position. No pneumothorax or effusion. The cardiomediastinal contours are unremarkable. IMPRESSION: No acute cardiopulmonary process.
[2023-09-11 13:15] LABS: AST/SGOT < 4 U/L (15-37)
--- NOTE | 2023-09-11 14:29 | ER ---
Nurse's Notes [facility] Name: Juan C Monge Age: 63 yrs Sex: Male : 1960 Arrival Date: 09/11/2023 Time: 12:21 Bed 3 Private MD: Diagnosis: COPD/ Chronic obstructive pulmonary disease with (acute) exacerbation Presentation: 09/11 12:29 Chief complaint: Patient states: Difficulty breathing since this morning. Coronavirus jl7 screen: Client presents with at least one sign or symptom that may indicate coronavirus-19. Ebola Screen: No symptoms or risks identified at this time. Initial Sepsis Screen: Does the patient meet any 2 criteria? RR > 20 per min. Does the patient have a suspected source of infection? No. Patient's initial sepsis screen is negative. Risk Assessment: Do you want to hurt yourself or someone else? Patient reports no desire to harm self or others. Onset of symptoms was September 11, 2023. 12:29 Method Of Arrival: Ambulatory jl7 12:29 Acuity: JESSI 2 jl7 Triage Assessment: 12:29 General: Appears distressed, uncomfortable, Behavior is cooperative, restless. Pain: jl7 Denies pain. Respiratory: Reports shortness of breath at rest Airway is patent Respiratory effort is even, labored, Respiratory pattern is symmetrical, tachypnea Onset: The symptoms/episode began/occurred the patient has moderate shortness of breath. Historical: - Allergies: 12:30 No Known Allergies; jl7 - PMHx: 12:30 Atrial Fib; COPD; CVA; Hyperlipidemia; Hypertension; Myocardial infarction; skull jl7 fracture; - PSHx: 12:30 Appendectomy; pacemaker; jl7 - Immunization history:: Adult Immunizations unknown. - Social history:: Smoking status: Patient reports the use of cigarette tobacco products, smokes one-half pack cigarettes per day. - Family history:: not pertinent. Screenin:[address] [facility] ED Fall Risk Assessment (Adult) Score/Fall Risk Level 0 - 2 = Low Risk jl7 Oriented to surroundings, Maintained a safe environment. Abuse screen: Denies threats or abuse. Denies injuries from another. Nutritional screening: No deficits noted. Tuberculosis screening: No symptoms or risk factors identified. Assessment: 12:30 General: Appears uncomfortable, Behavior is calm, cooperative. Pain: Denies pain. aa5 Neuro: Level of Consciousness is awake, alert, obeys commands, Oriented to person, place, time, situation. Cardiovascular: Heart tones S1 S2 present Edema is 1+ to left ankle and right ankle Rhythm is sinus rhythm. Respiratory: Reports shortness of breath since 1 week ago, pt reports he uses home Oxygen via 2 L NC. Airway is patent Respiratory effort is even, labored, Respiratory pattern is tachypnea Breath sounds are diminished bilaterally. GI: No signs and/or symptoms were reported involving the gastrointestinal system. : No signs and/or symptoms were reported regarding the genitourinary system. EENT: No signs and/or symptoms were reported regarding the EENT system. Derm: Skin is pink, warm \T\ dry. Musculoskeletal: Range of motion: intact in all extremities. 12:49 Reassessment: No changes from previously documented assessment. aa5 13:00 Reassessment: neb tx ongoing. Warm blankets provided for comfort. Pt currently having aa5 an argument with his girl friend at bedside, appears upset. . Neuro: Level of Consciousness is awake, alert, obeys commands, Oriented to person, place, time, situation. Respiratory: Airway is patent Respiratory effort is even, labored, Respiratory pattern is tachypnea. Derm: Skin is pink, warm \T\ dry. 13:30 Reassessment: SOB has improved. Pt appears more comfortable now. . aa5 14:00 Reassessment: Patient is alert, oriented x 3, equal unlabored respirations, skin aa5 warm/dry/pink. Pt sitting up in bed, appears calm and comfortable. Pt given more warm blankets for comfort. . Vital Signs: 12:29 BP 157 / 119; Pulse 80; Resp 29; Pulse Ox 100% on 2 lpm NC; Weight 68.04 kg; jl7 13:00 BP 144 / 67; Pulse 75; Resp 22 S; Pulse Ox 97% on 2 lpm NC; aa5 14:43 BP 131 / 63; Pulse 79; Resp 20; Temp 97.9; Pulse Ox 100% on 2 lpm NC; jl7 ED Course: 12:22 Patient arrived in ED. im 12:26 Charlie Valencia MD is Attending Physician. rt 12:29 Arm band placed on right wrist. jl7 12:30 Triage completed. jl7 12:32 Marichuy Pacheco, RN is Primary Nurse. aa5 12:37 Initial lab(s) drawn, by mi, sent to lab. Inserted saline lock: 20 gauge in left aa5 forearm, using aseptic technique. Blood collected. 12:55 XRAY Chest (1 view) In Process Unspecified. EDMS 12:58 EKG done, by ED staff, reviewed by Charlie Valencia MD. aa5 14:28 Dameon Cedillo MD is Referral Physician. rt 14:43 Patient has correct armband on for positive identification. Provided Education on: use jl7 of call nieto. 14:43 No provider procedures requiring assistance completed. IV discontinued, intact, jl7 bleeding controlled, No redness/swelling at site. Pressure dressing applied. Administered Medications: 12:49 Drug: DuoNeb Nebulize (3:1) (2.5 mg - 0.5 mg) 3 ml Nebulizer once Route: Nebulizer; aa5 14:46 Follow up: Response: No adverse reaction jl7 12:49 Drug: MethylPrednisoLONE IVP 125 mg IVP once Route: IVP; Site: left forearm; aa5 14:45 Follow up: Response: No adverse reaction; Marked relief of symptoms jl7 Medication: 14:43 VIS not applicable for this client. jl7 Outcome: 14:28 Discharge ordered by MD. rt 14:43 Discharged to home via wheelchair, with friend, jl7 14:43 Condition: stable 14:43 Discharge instructions given to patient, friend, Instructed on discharge instructions, follow up and referral plans. medication usage, Demonstrated understanding of instructions, follow-up care, medications, Prescriptions given X 1, 14:47 Patient left the ED. jl7 Signatures: Dispatcher [employer] EDAZ Marichuy Pacheco, RN RN aa5 Janell Guillen RN RN jl7 Clarisse Melton, RN RN Charlie Hadley MD MD rt Dee Chaves Corrections: (The following items were deleted from the chart) 12:30 12:27 Note UNABLE TO LOCATE PATIENT FOR TRIAGE db jl7 12:30 12:15 Note CALLED PT. UNABLE TO LOCATE PATIENT FOR TRIAGE db jl7 12:31 12:29 Acuity: JESSI 3 jl7 jl7
--- NOTE | 2023-09-11 14:29 | EDPHYS ---
Physician Documentation [facility] Name: Juan C Monge Age: 63 yrs Sex: Male : 1960 Arrival Date: 09/11/2023 Time: 12:21 Bed 3 Private MD: ED Physician Charlie Valencia HPI: 09/11 14:35 This 63 yrs old Male presents to ER via Ambulatory with complaints of Breathing rt Difficulty. 14:35 Patient was seen in the ED about 3 days ago for COPD, was prescribed steroids, rt breathing treatments, he did not worm picker any of these. States that his breathing has worsened overnight, consistent with prior episodes of COPD. Denies chest pain. Denies other acute complaints, symptoms are moderate severity, no other aggravating or alleviating factors.. Historical: - Allergies: 12:30 No Known Allergies; jl7 - PMHx: 12:30 Atrial Fib; COPD; CVA; Hyperlipidemia; Hypertension; Myocardial infarction; skull jl7 fracture; - PSHx: 12:30 Appendectomy; pacemaker; jl7 - Immunization history:: Adult Immunizations unknown. - Social history:: Smoking status: Patient reports the use of cigarette tobacco products, smokes one-half pack cigarettes per day. - Family history:: not pertinent. ROS: 14:35 Constitutional: Negative for fever, chills, and weight loss, Cardiovascular: Negative rt for chest pain, palpitations, and edema, Respiratory: Negative for shortness of breath, cough, wheezing, and pleuritic chest pain, Abdomen/GI: Negative for abdominal pain, nausea, vomiting, diarrhea, and constipation, MS/Extremity: Negative for injury and deformity, Skin: Negative for injury, rash, and discoloration, Neuro: Negative for headache, weakness, numbness, tingling, and seizure, Psych: Negative for depression, anxiety, suicide ideation, homicidal ideation, and hallucinations, 14:35 Respiratory: Positive for cough, shortness of breath, Exam: 14:35 Constitutional: This is a well developed, well nourished patient who is awake, alert, rt and in no acute distress. Head/Face: Normocephalic, atraumatic. Chest/axilla: Normal chest wall appearance and motion. Nontender with no deformity. No lesions are appreciated. Cardiovascular: Regular rate and rhythm with a normal S1 and S2. No gallops, murmurs, or rubs. Normal PMI, no JVD. No pulse deficits. Abdomen/GI: Soft, non-tender, with normal bowel sounds. No distension or tympany. No guarding or rebound. No evidence of tenderness throughout. Skin: Warm, dry with normal turgor. Normal color with no rashes, no lesions, and no evidence of cellulitis. MS/ Extremity: Pulses equal, no cyanosis. Neurovascular intact. Full, normal range of motion. Neuro: Awake and alert, GCS 15, oriented to person, place, time, and situation. Cranial nerves II-XII grossly intact. Motor strength 5/5 in all extremities. Sensory grossly intact. Cerebellar exam normal. Normal gait. Psych: Awake, alert, with orientation to person, place and time. Behavior, mood, and affect are within normal limits. 14:35 ECG was reviewed by the Attending Physician. 14:35 Respiratory: Wheezes heard on all lung manriquez, no respiratory distress, Vital Signs: 12:29 BP 157 / 119; Pulse 80; Resp 29; Pulse Ox 100% on 2 lpm NC; Weight 68.04 kg; jl7 13:00 BP 144 / 67; Pulse 75; Resp 22 S; Pulse Ox 97% on 2 lpm NC; aa5 14:43 BP 131 / 63; Pulse 79; Resp 20; Temp 97.9; Pulse Ox 100% on 2 lpm NC; jl7 MDM: 12:29 Patient medically screened. rt 14:35 Differential diagnosis: COPD, pneumonia. Data reviewed: vital signs, nurses notes, lab rt test result(s), EKG, radiologic studies. Consideration of Admission/Observation Vital signs stable, did not fail outpatient therapy as he did not worm picker the steroids. Symptoms are significant proved with bronchodilators, stable for outpatient care. I considered the following discharge prescriptions or medication management in the emergency department Medications were administered in the Emergency Department. See MAR. Independent interpretation of the following test(s) in the Emergency Department X-Ray: My interpretation is No pneumonia seen on interpretation of x-ray images. Test considered but Not performed: CT: Low suspicion for PE, CT angiogram not indicated. Care significantly affected by the following chronic conditions: Chronic Obstructive Pulmonary Disease. Care significantly affected by the following Social Determinants of Health: Tobacco abuse. Counseling: I had a detailed discussion with the patient and/or guardian regarding the historical points, exam findings, and any diagnostic results supporting the discharge/admit diagnosis, lab results, radiology results, the need for outpatient follow up, to return to the emergency department if symptoms worsen or persist or if there are any questions or concerns that arise at home. Response to treatment: the patient's symptoms have markedly improved after treatment. 09/11 12:34 Order name: Basic Metabolic Panel; Complete Time: 13:51 rt 09/11 12:34 Order name: CBC with Diff; Complete Time: 13:51 rt 09/11 12:34 Order name: LFT's; Complete Time: 13:51 rt 09/11 12:34 Order name: Magnesium; Complete Time: 13:51 rt 09/11 12:34 Order name: Troponin HS; Complete Time: 13:51 rt 09/11 12:34 Order name: XRAY Chest (1 view); Complete Time: 13:51 rt 09/11 12:34 Order name: EKG; Complete Time: 12:35 rt 09/11 12:34 Order name: Cardiac monitoring; Complete Time: 12:39 rt 09/11 12:34 Order name: EKG - Nurse/Tech; Complete Time: 12:58 rt 09/11 12:34 Order name: IV Saline Lock; Complete Time: 12:39 rt 09/11 12:34 Order name: Labs collected and sent; Complete Time: 12:39 rt 09/11 12:34 Order name: O2 Per Protocol; Complete Time: 12:39 rt 09/11 12:34 Order name: O2 Sat Monitoring; Complete Time: 12:39 rt EC:35 Rate is 67 beats/min. Rhythm is regular, Normal Sinus Rhythm with No ectopy. QRS [place] rt is Normal. SD interval is normal. QRS interval is normal. QT interval is normal. No Q waves. T waves are Normal. No ST changes noted. Interpreted by me. Administered Medications: 12:49 Drug: DuoNeb Nebulize (3:1) (2.5 mg - 0.5 mg) 3 ml Nebulizer once Route: Nebulizer; aa5 14:46 Follow up: Response: No adverse reaction jl7 12:49 Drug: MethylPrednisoLONE IVP 125 mg IVP once Route: IVP; Site: left forearm; aa5 14:45 Follow up: Response: No adverse reaction; Marked relief of symptoms jl7 Disposition Summary: 09/11/23 14:28 Discharge Ordered Notes: Location: Home rt Problem: an acute exacerbation rt Symptoms: have improved rt Condition: Stable rt Diagnosis - COPD/ Chronic obstructive pulmonary disease with (acute) exacerbation rt Followup: rt - With: Dameon Cedillo MD - When: 2 - 3 days - Reason: Discharge Instructions: - Discharge Summary Sheet rt - Chronic Obstructive Pulmonary Disease rt Forms: - Medication Reconciliation Form rt - Thank You Letter rt - Antibiotic Education rt - Prescription Opioid Use rt - Patient Portal Instructions rt - Leadership Thank You Letter rt Prescriptions: - Prednisone 20 mg Oral Tablet - take 2 tablets ORAL route once daily for 5 days; 10 tablet; Refills: 0, Product rt Selection Permitted Signatures: Dispatcher [employer] Marichuy Lindquist RN RN aa5 Janell Guillen RN RN jl7 Charlie Valencia MD MD rt
[2023-09-11 15:03] VITALS: O2SAT 100
[2023-09-11 15:11] VITALS: BP 131/63; TEMP 97.9
== END ==
LOC: ER 12:21
DX: J44.1 Chronic obstructive pulmonary disease with (acute) exacerbation (principal); I10 Essential (primary) hypertension; F17.210 Nicotine dependence, cigarettes, uncomplicated; Z95.0 Presence of cardiac pacemaker
CPT/HCPCS: 85025; 80048; 36415; 83735; 80076; 84484; 71045; 94640; 96374; 99285; J7613; J7644; J2930; 93005

== ENCOUNTER → 2023-09-13 | Emergency (ER) | payer OTHER ==
[~2023-09-13] MED LIST changes: -METHYLPREDNISOLONE 125 MG INJ ONE
--- OUTSIDE RECORDS SUMMARY | 2023-09-13 19:45 | XMS REPORT | Continuity of Care Document ---
Author Name Unknown Address [address] [facility] [address] [place] [address] [facility] thconnect Address [address] [facility] [place] [address] Care Team Providers Care Business Banker Name Role Phone MILY GOODWIN Primary Care Physician Unavailable HERMINIA OH Attending Clinician Unavailable NOMI MARY Attending Clinician Unavailable NOMI MARY Attending Clinician Unavailable Nomi Mary DO Attending Clinician [phone] Doctor Unassigned, [place] Attending Clinician U elaina Monge RN, Marika Friedman Attending Clinician [phone] MARELY WATTERS Attending Clinician Unavaila MARELY Meehan Attending Clinician Unavaila CARL Bowman Attending Clinician Unavailable CARL ORLANDO Attending Clinician Unavailable MILY GOODWIN Attending Clinician April Mily Ruiz MD Attending Clinician Taylor Frye RN Attending Clinician Unavailab TRAVIS Katz Attending Clinician Unavailable Iza Portillo Attending Clinician [phone] Francisca Bryant DO Attending Clinician +[phone] Travis Zeng MD Attending Clinician +[phone] PRADIP AUSTIN Attending Clinician Unavaila Pradip Du Attending Clinician [phone] HERMINIA CHO Attending Clinician Unavailable Herminia Cho MD Attending Clinician + FRANCISCA BRYANT Attending Clinician Unavailab LOUIS Ham Attending Clinician Unavailable Louis Hong DO Attending Clinician + Bessie Oswald MD Attending Clinician + RACHAEL FLOWERS Attending Clinician Unavailable Rachael Flowers MD Attending Clinician [phone] LEOBARDO SLOAN Attending Clinician Unavailable Leobardo Sloan MD Attending Clinician +[phone] BESSIE OSWALD Attending Clinician Unavailable STEPHANIE ALMONTE Attending Clinician Unavail able Stephanie Almonte MD Attending Clinician [phone] IZA VARMA Attending Clinician Unavailable Kathia Paula MD Attending Clinician [phone] Agapito Hackett MD Attending Clinician [phone] María Diaz DO Attending Clinician [phone] MARISOL DEVLIN Attending Clinician Unavailable Marisol Devlin MD Attending Clinician [phone] Dedrick Toth MD Attending Clinician [phone] Cecy Caro LVN Attending Clinician +[phone] Carlo Valdez Attending Clinician + [phone] Abi Swan MD Attending Clinician [phone] Clive Contreras MD Attending Clinician [phone] ERNESTO PIPER Attending Clinician Unavailable ERNESTO PIPER Attending Clinician Unavailable Krissy Powers MD Attending Clinician +[phone] LEILA CHAPA Attending Clinician Unavailable Leila Chapa MD Attending Clinician [phone] Jeanette Weaver Attending Clinician [phone] [facility] Main Attending Clinician UnavailGokul Lewis MD Attending Clinician +[phone] GOKUL TURNER Attending Clinician Unavailable , Adc Surg Spec Procedure Attending Clinician Unavailable JEANETTE MCDANIEL Attending Clinician Unavailable Chris ZAMORA, Herminia Chandler Attending Clinician UnavailRamesh Baires Attending Clinician [phone] TRAVIS ZENG Admitting Clinician Unavailable Travis Zeng MD Admitting Clinician [phone] STEPHANIE ALMONTE Admitting Clinician Unavail able LOUIS HONG Admitting Clinician Unavailable María Diaz DO Admitting Clinician [phone] MARISOL DEVLIN Admitting Clinician Unavailable IZA VARMA Admitting Clinician Unavailable Clive Contreras MD Admitting Clinician [phone] KRISSY POWERS Admitting Clinician Unavailable Krissy Powers MD Admitting Clinician [phone] MARÍA DIAZ Admitting Clinician Unavailable HERMINIA CHO Admitting Clinician Unavailable SAUD SANDERS Admitting Clinician Unavailable Payers Payer Name Policy Type Policy Number Effective Date Expirati on Date Source [employer] MEDICARE GOLD [id number] 2018 00:00:00 [employer] [id number] 2022 00:00:00 Problems Condition Name Condition Details Condition Category Status Onset Date Resolution Date Last Treatment Date Treating Clinician Comments Source Mitral regurgitat ion Mitral regurgitat ion Disease Active 02-16 00:00: 00 [facility] Hypotensio n, unspecifie d hypotensio n type Hypotensio n, unspecifie d hypotensio n type Disease Active 02-15 00:00: 00 [facility] 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 Disease Active 2023-0 5-03 00:00: 00 [facility] Confusion Confusion Disease Active 3-24 00:00: 00 [facility] Shortness of breath Shortness of breath Disease Active 3-11 00:00: 00 [facility] SOB (shortness of breath) SOB (shortness of breath) Disease Active 2-21 00:00: 00 [facility] 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 heart failure Disease Active 2018-09 00:00: 00 [facility] PAF (paroxysma l atrial fibrillati on) PAF (paroxysma l atrial fibrillati on) Disease Active 2018-09 00:00: 00 [facility] NSVT (nonsustai charlette ventricula r tachycardi a) NSVT (nonsustai charlette ventricula r tachycardi a) Disease Active 2018-09 00:00: 00 [facility] Acute on chronic combined systolic and diastolic congestive heart failure Acute on chronic combined systolic and diastolic congestive heart failure Disease Active 2018-09 00:00: 00 [facility] Nonrheumat ic mitral valve stenosis Nonrheumat ic mitral valve stenosis Disease Active 2018-09 00:00: 00 [facility] COPD exacerbati on COPD exacerbati on Disease Active 2018-09 00:00: 00 [facility] Cigarette smoker Cigarette smoker Disease Active 2018-09 00:00: 00 [facility] Troponin I above reference range Troponin I above reference range Disease Active 2018-09 00:00: 00 [facility] Hyponatrem ia Hyponatrem ia Disease Active 2018-09 00:00: 00 [facility] Hypoxia Hypoxia Disease Active 2018-09 00:00: 00 [facility] Acute respirator y distress Acute respirator y distress Disease Active 2018-09 00:00: 00 [facility] Left heart failure Left heart failure Disease Active 2013-09 00:00: 00 [facility] Closed fracture of zygoma Closed fracture of zygoma Disease Active 2013-09 00:00: 00 Overview: Formattin g of this note might be different from the original. Chronic Fracture - not acute [facility] Fall Fall Disease Active 2013-09 00:00: 00 [facility] Atrial fibrillati on Atrial fibrillati on Disease Active 2013-09 00:00: 00 [facility] VT (ventricul ar tachycardi a) VT (ventricul ar tachycardi a) Disease Active 2013-09 00:00: 00 [facility] Allergies, Adverse Reactions, Alerts Allergy Name Allergy Type Status Severity Reaction(s) Onset Date Inactive Date Treating Clinician Comments Source NO KNOWN ALLERGIE S Drug Class Active [facility] Social History Social Habit Start Date Stop Date Quantity Comments Source Gender identity [facility] of tobacco use Passive smoker [facility] History SDOH Social Connections Get Together [facility] History SDOH Social Connections [facility] History SDOH Social Connections Membership [facility] History SDOH Social Connections Meetings [facility] History of Social function 2023-03-01 00:00:00 2023-03-01 00:00:00 [facility] Alcohol intake 2023-03-01 00:00:00 2023-03-01 00:00:00 Current drinker of alcohol (finding) [facility] History SDOH Housing Unable to Pay 2023-02-18 00:00:00 2023-02-18 00:00:00 2 [facility] History SDOH Housing Places Lived 2023-02-18 00:00:00 2023-02-18 00:00:00 1 [facility] History SDOH Housing Homeless Last Year 2023-02-18 00:00:00 2023-02-18 00:00:00 2 [facility] History SDOH Alcohol Frequency 2023-02-18 00:00:00 2023-02-18 00:00:00 1 [facility] History SDOH Social Connections Phone 2023-02-18 00:00:00 2023-02-18 00:00:00 5 [facility] History SDOH Social Connections Living 2023-02-18 00:00:00 2023-02-18 00:00:00 7 [facility] History SDOH Physical Activity DPW 2023-02-18 00:00:00 2023-02-18 00:00:00 0 [facility] History SDOH Physical Activity MPS 2023-02-18 00:00:00 2023-02-18 00:00:00 0 [facility] History SDOH Financial 2023-02-18 00:00:00 2023-02-18 00:00:00 5 [facility] History SDOH Food Worry 2023-02-18 00:00:00 2023-02-18 00:00:00 1 [facility] History SDOH Food Scarcity 2023-02-18 00:00:00 2023-02-18 00:00:00 1 [facility] History SDOH Transport Med 2023-02-18 00:00:00 2023-02-18 00:00:00 2 [facility] History SDOH Transport Non-Med 2023-02-18 00:00:00 2023-02-18 00:00:00 2 [facility] Exposure to SARS-CoV-2 (event) 2023-02-05 00:00:00 2023-02-15 15:15:00 Not sure [facility] History SDOH Alcohol Std Drinks 2022-12-02 00:00:00 2022-12-02 00:00:00 3 [facility] History SDOH Alcohol Binge 2022-12-02 00:00:00 2022-12-02 00:00:00 1 [facility] Cigarettes smoked current (pack per day) - Reported 2022-11-09 00:00:00 2022-11-09 00:00:00 [facility] Tobacco use and exposure 2022-11-09 00:00:00 2022-11-09 00:00:00 User of smokeless tobacco [facility] Education - What is the highest level of school you have completed or the highest degree you have received? 2022-11-09 00:00:00 2022-11-09 00:00:00 High school graduate [facility] Alcohol Comment 2014-08-27 00:00:00 2014-08-27 00:00:00 8 drinks per day [facility] Sex Assigned At 1960 00:00:00 1960 00:00:00 [facility] Smoking Status Start Date Stop Date Source Smokes tobacco daily 2022-11-09 00:00:00 [facility] Medications Ordered Medication Name Filled Medication Name Start Date Stop Date Current Medication? Ordering Clinician Indication Dosage Frequency Signature (SIG) Comments Components Source khadar sim (INCRUSE ELLIPTA) 62.5 mcg/actuati on DsDv 2022-09 0- 00:00: 00 Yes [id number] 1{puff} Inhale 1 Puff in the morning. [facility] tiotropium 18 mcg inhalation 2022-09 0 00:00: 00 Yes 18ug Inhale 1 capsule in the morning. [facility] tiotropium 18 mcg inhalation 2022-09 0 00:00: 00 Yes 18ug Inhale 1 capsule in the morning. [facility] tiotropium 18 mcg inhalation 2022-09 0 00:00: 00 Yes 18ug Inhale 1 capsule in the morning. [facility] fluticasone propion-bella meteroL (ADVAIR DISKUS) 250-50 mcg/dose inhalation disk 04-19 00:00: 00 Yes 1{puff} Inhale 1 Puff in the morning and 1 Puff in the evening. [facility] tiotropium 18 mcg inhalation 04-19 00:00: 00 Yes 18ug Inhale 1 capsule in the morning. [facility] albuterol 90 mcg/actuati on inhaler 04-19 00:00: 00 Yes 2{puff} Inhale 2 Puffs every 4 (four) hours as needed for Wheezing or Shortness of Breath. [facility] ipratropium -albuteroL 0.5 mg-3 mg(2.5 mg base)/3 mL nebulizer solution 04-19 00:00: 00 Yes [id number] 3mL Inhale 3 mL every 6 (six) hours as needed for Wheezing. [facility] fluticasone propion-bella meteroL (ADVAIR DISKUS) 250-50 mcg/dose inhalation disk 04-19 00:00: 00 Yes 1{puff} Inhale 1 Puff in the morning and 1 Puff in the evening. [facility] tiotropium 18 mcg inhalation 04-19 00:00: 00 Yes 18ug Inhale 1 capsule in the morning. [facility] albuterol 90 mcg/actuati on inhaler 04-19 00:00: 00 Yes 2{puff} Inhale 2 Puffs every 4 (four) hours as needed for Wheezing or Shortness of Breath. [facility] ipratropium -albuteroL 0.5 mg-3 mg(2.5 mg base)/3 mL nebulizer solution 04-19 00:00: 00 Yes [id number] 3mL Inhale 3 mL every 6 (six) hours as needed for Wheezing. [facility] fluticasone propion-bella meteroL (ADVAIR DISKUS) 250-50 mcg/dose inhalation disk 04-19 00:00: 00 Yes 1{puff} Inhale 1 Puff in the morning and 1 Puff in the evening. [facility] tiotropium 18 mcg inhalation 04-19 00:00: 00 Yes 18ug Inhale 1 capsule in the morning. [facility] albuterol 90 mcg/actuati on inhaler 04-19 00:00: 00 Yes 2{puff} Inhale 2 Puffs every 4 (four) hours as needed for Wheezing or Shortness of Breath. [facility] ipratropium -albuteroL 0.5 mg-3 mg(2.5 mg base)/3 mL nebulizer solution 04-19 00:00: 00 Yes [id number] 3mL Inhale 3 mL every 6 (six) hours as needed for Wheezing. [facility] fluticasone propion-bella meteroL (ADVAIR DISKUS) 250-50 mcg/dose inhalation disk 04-19 00:00: 00 Yes 1{puff} Inhale 1 Puff in the morning and 1 Puff in the evening. [facility] albuterol 90 mcg/actuati on inhaler 04-19 00:00: 00 Yes 2{puff} Inhale 2 Puffs every 4 (four) hours as needed for Wheezing or Shortness of Breath. [facility] ipratropium -albuteroL 0.5 mg-3 mg(2.5 mg base)/3 mL nebulizer solution 04-19 00:00: 00 Yes [id number] 3mL Inhale 3 mL every 6 (six) hours as needed for Wheezing. [facility] fluticasone propion-bella meteroL (ADVAIR DISKUS) 250-50 mcg/dose inhalation disk 04-19 00:00: 00 Yes 1{puff} Inhale 1 Puff in the morning and 1 Puff in the evening. [facility] albuterol 90 mcg/actuati on inhaler 04-19 00:00: 00 Yes 2{puff} Inhale 2 Puffs every 4 (four) hours as needed for Wheezing or Shortness of Breath. [facility] ipratropium -albuteroL 0.5 mg-3 mg(2.5 mg base)/3 mL nebulizer solution 04-19 00:00: 00 Yes [id number] 3mL Inhale 3 mL every 6 (six) hours as needed for Wheezing. [facility] fluticasone propion-bella meteroL (ADVAIR DISKUS) 250-50 mcg/dose inhalation disk 04-19 00:00: 00 Yes 1{puff} Inhale 1 Puff in the morning and 1 Puff in the evening. [facility] albuterol 90 mcg/actuati on inhaler 04-19 00:00: 00 Yes 2{puff} Inhale 2 Puffs every 4 (four) hours as needed for Wheezing or Shortness of Breath. [facility] ipratropium -albuteroL 0.5 mg-3 mg(2.5 mg base)/3 mL nebulizer solution 04-19 00:00: 00 Yes [id number] 3mL Inhale 3 mL every 6 (six) hours as needed for Wheezing. [facility] tiotropium 18 mcg inhalation 8 00:00: 00 07-08 00:00 :00 No 18ug Inhale 1 capsule in the morning. [facility] albuterol 2.5 mg /3 mL (0.083 %) nebulizer solution 03-03 00:00: 00 Yes [id number] 2.5mg Inhale 3 mL every 4 (four) hours. May also nebulize one extra every 6 hours. [facility] albuterol 2.5 mg /3 mL (0.083 %) nebulizer solution 03-03 00:00: 00 Yes [id number] 2.5mg Inhale 3 mL every 4 (four) hours. May also nebulize one extra every 6 hours. [facility] albuterol 2.5 mg /3 mL (0.083 %) nebulizer solution 03-03 00:00: 00 Yes [id number] 2.5mg Inhale 3 mL every 4 (four) hours. May also nebulize one extra every 6 hours. [facility] albuterol 2.5 mg /3 mL (0.083 %) nebulizer solution 03-03 00:00: 00 Yes [id number] 2.5mg Inhale 3 mL every 4 (four) hours. May also nebulize one extra every 6 hours. [facility] albuterol 2.5 mg /3 mL (0.083 %) nebulizer solution 03-03 00:00: 00 Yes [id number] 2.5mg Inhale 3 mL every 4 (four) hours. May also nebulize one extra every 6 hours. [facility] albuterol 2.5 mg /3 mL (0.083 %) nebulizer solution 03-03 00:00: 00 Yes [id number] 2.5mg Inhale 3 mL every 4 (four) hours. May also nebulize one extra every 6 hours. [facility] albuterol 2.5 mg /3 mL (0.083 %) nebulizer solution 2022-0 6-15 00:00: 00 Yes [id number] 2.5mg Inhale 3 mL every 4 (four) hours. May also nebulize one extra every 6 hours. [facility] donepeziL 5 mg tablet 2022-0 6-13 00:00: 00 Yes [id number] 5mg Take 1 tablet by mouth in the morning. [facility] memantine 5 mg tablet 2022-0 6-13 00:00: 00 Yes [id number] 5mg Take 1 tablet by mouth in the morning. [facility] donepeziL 5 mg tablet 2022-0 6-13 00:00: 00 Yes [id number] 5mg Take 1 tablet by mouth in the morning. [facility] memantine 5 mg tablet 2022-0 6-13 00:00: 00 Yes [id number] 5mg Take 1 tablet by mouth in the morning. [facility] donepeziL 5 mg tablet 2022-0 6-13 00:00: 00 Yes [id number] 5mg Take 1 tablet by mouth in the morning. [facility] memantine 5 mg tablet 2022-0 6-13 00:00: 00 Yes [id number] 5mg Take 1 tablet by mouth in the morning. [facility] donepeziL 5 mg tablet 2022-0 -13 00:00: 00 Yes [id number] 5mg Take 1 tablet by mouth in the morning. [facility] memantine 5 mg tablet 2022-0 6-13 00:00: 00 Yes [id number] 5mg Take 1 tablet by mouth in the morning. [facility] donepeziL 5 mg tablet 3-0 6-13 00:00: 00 Yes [id number] 5mg Take 1 tablet by mouth in the morning. [facility] memantine 5 mg tablet 3-0 6-13 00:00: 00 Yes [id number] 5mg Take 1 tablet by mouth in the morning. [facility] donepeziL 5 mg tablet 3-0 6-13 00:00: 00 Yes [id number] 5mg Take 1 tablet by mouth in the morning. [facility] memantine 5 mg tablet 2022-0 13 00:00: 00 Yes [id number] 5mg Take 1 tablet by mouth in the morning. [facility] donepeziL 5 mg tablet 2022-0 13 00:00: 00 Yes [id number] 5mg Take 1 tablet by mouth in the morning. [facility] memantine 5 mg tablet 2022-0 13 00:00: 00 Yes [id number] 5mg Take 1 tablet by mouth in the morning. [facility] donepeziL 5 mg tablet 2022-0 03-01 00:00: 00 Yes [id number] 5mg Take 1 tablet by mouth in the morning. [facility] memantine 5 mg tablet 2022-0 03-01 00:00: 00 Yes [id number] 5mg Take 1 tablet by mouth in the morning. [facility] donepeziL 5 mg tablet 2022-0 03-01 00:00: 00 Yes [id number] 5mg Take 1 tablet by mouth in the morning. [facility] memantine 5 mg tablet 2022-0 03-01 00:00: 00 Yes [id number] 5mg Take 1 tablet by mouth in the morning. [facility] busPIRone 10 mg tablet 0 02-18 16:15: 12 Yes 10mg Take 1 tablet by mouth in the morning and 1 tablet in the evening. [facility] rivaroxaban 15 mg tablet 0 02-18 16:15: 12 Yes 15mg Take 1 tablet by mouth in the morning. [facility] ASPIRIN ORAL 2022-0 02-18 16:15: 12 Yes 81mg Take 81 mg by mouth in the morning. tablet [facility] busPIRone 10 mg tablet 2022-0 02-18 16:15: 12 Yes 10mg Take 1 tablet by mouth in the morning and 1 tablet in the evening. [facility] rivaroxaban 15 mg tablet 2022-0 02-18 16:15: 12 Yes 15mg Take 1 tablet by mouth in the morning. [facility] ASPIRIN ORAL 3-0 02-18 16:15: 12 Yes 81mg Take 81 mg by mouth in the morning. tablet [facility] busPIRone 10 mg tablet 2022-0 02-18 16:15: 12 Yes 10mg Take 1 tablet by mouth in the morning and 1 tablet in the evening. [facility] rivaroxaban 15 mg tablet 0 02-18 16:15: 12 Yes 15mg Take 1 tablet by mouth in the morning. [facility] ASPIRIN [facility] 20[facility]-0 02-18 16:15: 12 Yes 81mg Take 81 mg by mouth in the morning. tablet [facility] busPIRone 10 mg tablet 2022-0 02-18 16:15: 12 Yes 10mg Take 1 tablet by mouth in the morning and 1 tablet in the evening. [facility] rivaroxaban 15 mg tablet 0 02-18 16:15: 12 Yes 15mg Take 1 tablet by mouth in the morning. [facility] ASPIRIN ORAL 2022-0 02-18 16:15: 12 Yes 81mg Take 81 mg by mouth in the morning. tablet [facility] busPIRone 10 mg tablet 0 02-18 16:15: 12 Yes 10mg Take 1 tablet by mouth in the morning and 1 tablet in the evening. [facility] rivaroxaban 15 mg tablet 0 02-18 16:15: 12 Yes 15mg Take 1 tablet by mouth in the morning. [facility] ASPIRIN ORAL 2022-0 02-18 16:15: 12 Yes 81mg Take 81 mg by mouth in the morning. tablet [facility] busPIRone 10 mg tablet 0 02-18 16:15: 12 Yes 10mg Take 1 tablet by mouth in the morning and 1 tablet in the evening. [facility] riv[facility] mg tablet 2022-0 02-18 16:15: 12 Yes 15mg Take 1 tablet by mouth in the morning. [facility] ASPIRIN ORAL 2022-0 02-18 16:15: 12 Yes 81mg Take 81 mg by mouth in the morning. tablet [facility] busPIRone 10 mg tablet 2022-0 02-18 16:15: 12 Yes 10mg Take 1 tablet by mouth in the morning and 1 tablet in the evening. [facility] rivaroxaban 15 mg tablet 2022-0 02-18 16:15: 12 Yes 15mg Take 1 tablet by mouth in the morning. [facility] ASPIRIN ORAL 3-0 02-18 16:15: 12 Yes 81mg Take 81 mg by mouth in the morning. tablet [facility] busPIRone 10 mg tablet 2022-0 02-18 16:15: 12 Yes 10mg Take 1 tablet by mouth in the morning and 1 tablet in the evening. [facility] rivaroxaban 15 mg tablet 2022-0 02-18 16:15: 12 Yes 15mg Take 1 tablet by mouth in the morning. [facility] ASPIRIN ORAL 2022-0 02-18 16:15: 12 Yes 81mg Take 81 mg by mouth in the morning. tablet [facility] busPIRone 10 mg tablet 2022-0 02-18 16:15: 12 Yes 10mg Take 1 tablet by mouth in the morning and 1 tablet in the evening. [facility] rivaroxaban 15 mg tablet 0 02-18 16:15: 12 Yes 15mg Take 1 tablet by mouth in the morning. [facility] ASPIRIN ORAL 2022-0 02-18 16:15: 12 Yes 81mg Take 81 mg by mouth in the morning. tablet [facility] busPIRone 10 mg tablet 2022-0 02-18 16:15: 12 Yes 10mg Take 1 tablet by mouth in the morning and 1 tablet in the evening. [facility] rivaroxaban 15 mg tablet 2022-0 02-18 16:15: 12 Yes 15mg Take 1 tablet by mouth in the morning. [facility] ASPIRIN ORAL 3-0 02-18 16:15: 12 Yes 81mg Take 81 mg by mouth in the morning. tablet [facility] busPIRone 10 mg tablet 2022-0 02-18 16:15: 12 Yes 10mg Take 1 tablet by mouth in the morning and 1 tablet in the evening. [facility] mg tablet 2022-0 02-18 16:15: 12 Yes 15mg Take 1 tablet by mouth in the morning. [facility] ASPIRIN ORAL 0 02-18 16:15: 12 Yes 81mg Take 81 mg by mouth in the morning. tablet [facility] busPIRone 10 mg tablet 02-18 16:15: 12 Yes 10mg Take 1 tablet by mouth in the morning and 1 tablet in the evening. [facility] rivaroxaban 15 mg tablet 0 02-18 16:15: 12 Yes 15mg Take 1 tablet by mouth in the morning. [facility] ASPIRIN ORAL 0 02-18 16:15: 12 Yes 81mg Take 81 mg by mouth in the morning. tablet [facility] busPIRone 10 mg tablet 0 02-18 16:15: 12 Yes 10mg Take 1 tablet by mouth in the morning and 1 tablet in the evening. [facility] rivaroxaban 15 mg tablet 02-18 16:15: 12 Yes 15mg Take 1 tablet by mouth in the morning. [facility] ASPIRIN ORAL 02-18 16:15: 12 Yes 81mg Take 81 mg by mouth in the morning. tablet [facility] predniSONE 20 mg tablet 0 02-18 00:00: 00 02-22 04:59 :00 No [id number] 40mg Take 2 tablets by mouth in the morning for 3 days. [facility] predniSONE 20 mg tablet 0 02-18 00:00: 00 02-22 04:59 :00 No [id number] 40mg Take 2 tablets by mouth in the morning for 3 days. [facility] predniSONE 20 mg tablet 02-18 00:00: 00 02-22 04:59 :00 No [id number] 40mg Take 2 tablets by mouth in the morning for 3 days. [facility] midodrine 5 mg tablet 02-17 00:00: 00 Yes [id number] 5mg Take 1 tablet by mouth every 8 (eight) hours as needed (Hypotensi on SBP <95 or DBP <50). [facility] midodrine 5 mg tablet 02-17 00:00: 00 Yes [id number] 5mg Take 1 tablet by mouth every 8 (eight) hours as needed (Hypotensi on SBP <95 or DBP <50). [facility] midodrine 5 mg tablet 02-17 00:00: 00 Yes [id number] 5mg Take 1 tablet by mouth every 8 (eight) hours as needed (Hypotensi on SBP <95 or DBP <50). [facility] midodrine 5 mg tablet 02-17 00:00: 00 Yes [id number] 5mg Take 1 tablet by mouth every 8 (eight) hours as needed (Hypotensi on SBP <95 or DBP <50). [facility] midodrine 5 mg tablet 02-17 00:00: 00 Yes [id number] 5mg Take 1 tablet by mouth every 8 (eight) hours as needed (Hypotensi on SBP <95 or DBP <50). [facility] midodrine 5 mg tablet 02-17 00:00: 00 Yes [id number] 5mg Take 1 tablet by mouth every 8 (eight) hours as needed (Hypotensi on SBP <95 or DBP <50). [facility] midodrine 5 mg tablet 02-17 00:00: 00 Yes [id number] 5mg Take 1 tablet by mouth every 8 (eight) hours as needed (Hypotensi on SBP <95 or DBP <50). [facility] midodrine 5 mg tablet 02-17 00:00: 00 Yes [id number] 5mg Take 1 tablet by mouth every 8 (eight) hours as needed (Hypotensi on SBP <95 or DBP <50). [facility] midodrine 5 mg tablet 02-17 00:00: 00 Yes [id number] 5mg Take 1 tablet by mouth every 8 (eight) hours as needed (Hypotensi on SBP <95 or DBP <50). [facility] midodrine 5 mg tablet 02-17 00:00: 00 Yes [id number] 5mg Take 1 tablet by mouth every 8 (eight) hours as needed (Hypotensi on SBP <95 or DBP <50). [facility] midodrine 5 mg tablet 0 02-17 00:00: 00 Yes [id number] 5mg Take 1 tablet by mouth every 8 (eight) hours as needed (Hypotensi on SBP <95 or DBP <50). [facility] midodrine 5 mg tablet 0 02-17 00:00: 00 Yes [id number] 5mg Take 1 tablet by mouth every 8 (eight) hours as needed (Hypotensi on SBP <95 or DBP <50). [facility] midodrine 5 mg tablet 02-17 00:00: 00 Yes [id number] 5mg Take 1 tablet by mouth every 8 (eight) hours as needed (Hypotensi on SBP <95 or DBP <50). [facility] midodrine (PROAMATINE ) tablet 5 mg 02-16 19:00: 00 Yes 5mg 5 mg, Oral, Q8H, First dose on Tue02/16/23 at 1400, Until Discontinu ed, Routine [facility] rivaroxaban (XARELTO) tablet 15 mg 02-16 14:00: 00 Yes 15mg 15 mg, Oral, DAILY, First dose on Tue02/16/23 at 0900, Until Discontinu ed, Routine [facility] montelukast (SINGULAIR) tablet 10 mg 02-16 14:00: 00 Yes 10mg 10 mg, Oral, DAILY, First dose on Tue02/16/23 at 0900, Until Discontinu ed, Routine [facility] memantine (NAMENDA) tablet 5 mg 02-16 14:00: 00 Yes 5mg 5 mg, Oral, DAILY, First dose on Tue02/16/23 at 0900, Until Discontinu ed, Routine
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 Restricted medication : DEDRICK TOTH [facility] donepeziL (ARICEPT) tablet 5 mg 02-16 14:00: 00 Yes 5mg 5 mg, Oral, DAILY, First dose on Tue02/16/23 at 0900, Until Discontinu ed, Routine [facility] aspirin EC tablet 81 mg 02-16 14:00: 00 Yes 81mg 81 mg, Oral, DAILY, First dose on Tue02/16/23 at 0900, Until Discontinu ed [facility] docusate (COLACE) capsule 100 mg 02-16 14:00: 00 Yes 100mg 100 mg, Oral, DAILY, First dose on Tue02/16/23 at 0900, Until Discontinu ed, Routine [facility] predniSONE (DELTASONE) tablet 40 mg 02-16 14:00: 00 02-21 13:59 :00 No 40mg 40 mg, Oral, DAILY, 5 doses, First dose on Tue02/16/23 at 0900, Last dose on Tue02/20/23 at 0900, Routine [facility] sulfur hexafluorid e microsphr (LUMASON) injection 5 mL 02-16 14:00: 00 02-16 14:00 :00 No [id number] 5mL 5 mL, Intravenou s, ONCE, 1 dose, On Tue02/16/23 at 0900, Routine
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 Restricted medication : STEFFANIE REYES [facility] budesonide- formoteroL (SYMBICORT) 160-4.5 mcg/actuati on inhaler 2 Puff 02-16 13:00: 00 Yes 2{puff} 2 Puff, Inhalation , BID, First dose on Tue02/16/23 at 0800, Until Discontinu ed [facility] busPIRone (BUSPAR) tablet 10 mg 02-16 13:00: 00 Yes 10mg 10 mg, Oral, BID, First dose on Tue02/16/23 at 0800, Until Discontinu ed, Routine [facility] methylpredn isolone sod succ (SOLU-MEDRO L) injection 60 mg 02-16 05:43: 00 02-16 05:51 :00 No 60mg 60 mg, Intravenou s, ONCE, 1 dose, On Tue02/16/23 at 0045, 2 mL [facility] levoFLOXaci n in D5W (LEVAQUIN) [...]
Re stricted use approved by: [employer] PROVIDER [facility] doxycycline hyclate (Vibramycin ) capsule 100 mg 02-16 01:02: 11 02-16 21:57 :07 No 100mg 100 mg, Oral, Q12H ABX, 10 doses, First dose on Tue02/15/23 at 2015, Last dose on Tue02/20/23 at 0815, [facility]HAEL
Re ason for Anti-Infec tive: Documented Infection< br>Documen anirudh Infection Site: Respirator y
Durat ion of Therapy: 7 days [facility] NaCl 0.9% (NS) IV infusion 1,000 mL 02-16 01:00: 00 02-16 12:47 :05 No 1000mL at 100 mL/hr, IV Infusion, CONTINUOUS , Starting on Tue02/15/23 at 2000, Until Tue02/16/23 at 0747, Routine [facility] ipratropium -albuteroL (DUONEB) 0.5 mg-3 mg(2.5 mg base)/3 mL nebulizer solution 3 mL 02-16 00:53: 35 Yes 3mL 3 mL, Inhalation , Q6HPRN, Starting on Tue02/15/23 at 1953, Until Discontinu ed, Routine, Wheezing, Shortness of Breath [facility] HYDROcodone -acetaminop hen (NORCO) 10-325 mg tablet 1 tablet 02-16 00:52: 26 Yes 1{tbl} 1 tablet, Oral, Q6HPRN, Starting on Tue02/15/23 at 1951, Until Discontinu ed, Routine, Pain (scale 7-10) [facility] traMADoL (ULTRAM) tablet 50 mg 02-16 00:52: 22 02-18 00:51 :22 No 50mg 50 mg, Oral, Q8HPRN, Starting on Tue02/15/23 at 1951, Until Elizabeth 02/17/23 at 1950, Routine, Pain (scale 4-6) [facility] acetaminoph en (TYLENOL) tablet 650 mg 02-16 00:52: 16 Yes 650mg 650 mg, Oral, Q6HPRN, Starting on Tue02/15/23 at 1951, Until Discontinu ed, Routine, Pain (scale 1-3) [facility] NaCl 0.9% (NS) bolus infusion 1,000 mL 02-15 22:15: 00 02-15 22:51 :00 No 1000mL at 999 mL/hr, 1,000 mL, IV Infusion, ONCE, 1 dose, On Tue02/15/23 at 1715, [facility] NaCl 0.9% (NS) bolus infusion 1,000 mL 02-15 21:30: 00 02-15 22:43 :00 No 1000mL at 999 mL/hr, 1,000 mL, IV Infusion, ONCE, 1 dose, On Tue02/15/23 at 1630, [facility] NaCl 0.9% (NS) bolus infusion 1,000 mL 02-15 20:45: 00 02-15 22:43 :00 No 1000mL at 999 mL/hr, 1,000 mL, IV Infusion, ONCE, 1 dose, On Tue02/15/23 at 1545, [facility] ipratropium -albuteroL (DUONEB) 0.5 mg-3 mg(2.5 mg base)/3 mL nebulizer solution 3 mL 02-05 22:15: 00 02-06 10:14 :00 No 3mL 3 mL, Inhalation , ONCE, 1 dose, On 02/05/23 at 1715, [facility] ipratropium -albuteroL (DUONEB) 0.5 mg-3 mg(2.5 mg base)/3 mL nebulizer solution 3 mL 02-05 21:15: 00 02-05 20:17 :00 No 3mL 3 mL, Inhalation , ONCE, 1 dose, On 02/05/23 at 1615, [facility] predniSONE (DELTASONE) tablet 40 mg 02-05 20:15: 00 02-05 20:18 :00 No 40mg 40 mg, Oral, ONCE, 1 dose, On 02/05/23 at 1515, [facility] levalbutero l (XOPENEX) nebulizer solution 2.5 mg 02-04 21:15: 00 02-04 20:31 :00 No 2.5mg 2.5 mg, Inhalation , ONCE, 1 dose, On Tue02/04/23 at 1615, Routine [facility] ipratropium (ATROVENT) 0.02 % nebulizer solution 0.5 mg 02-04 21:15: 00 02-04 20:31 :00 No .5mg 0.5 mg, Inhalation , ONCE, 1 dose, On Tue02/04/23 at 1615, [facility] albuterol 90 mcg/actuati on inhaler 02-04 00:00: 00 Yes [id number] 2{puff} Inhale 2 Puffs every 4 (four) hours as needed for Wheezing or Shortness of Breath. [facility] albuterol 90 mcg/actuati on inhaler 02-04 00:00: 00 Yes [id number] 2{puff} Inhale 2 Puffs every 4 (four) hours as needed for Wheezing or Shortness of Breath. [facility] albuterol 90 mcg/actuati on inhaler 02-04 00:00: 00 Yes [id number] 2{puff} Inhale 2 Puffs every 4 (four) hours as needed for Wheezing or Shortness of Breath. [facility] albuterol 90 mcg/actuati on inhaler 02-04 00:00: 00 Yes [id number] 2{puff} Inhale 2 Puffs every 4 (four) hours as needed for Wheezing or Shortness of Breath. [facility] albuterol 90 mcg/actuati on inhaler 02-04 00:00: 00 Yes [id number] 2{puff} Inhale 2 Puffs every 4 (four) hours as needed for Wheezing or Shortness of Breath. [facility] albuterol 90 mcg/actuati on inhaler 02-04 00:00: 00 Yes [id number] 2{puff} Inhale 2 Puffs every 4 (four) hours as needed for Wheezing or Shortness of Breath. [facility] albuterol 90 mcg/actuati on inhaler 02-04 00:00: 00 Yes [id number] 2{puff} Inhale 2 Puffs every 4 (four) hours as needed for Wheezing or Shortness of Breath. [facility] albuterol 90 mcg/actuati on inhaler 02-04 00:00: 00 Yes [id number] 2{puff} Inhale 2 Puffs every 4 (four) hours as needed for Wheezing or Shortness of Breath. [facility] albuterol 90 mcg/actuati on inhaler 02-04 00:00: 00 Yes [id number] 2{puff} Inhale 2 Puffs every 4 (four) hours as needed for Wheezing or Shortness of Breath. [facility] albuterol 90 mcg/actuati on inhaler 02-04 00:00: 00 Yes [id number] 2{puff} Inhale 2 Puffs every 4 (four) hours as needed for Wheezing or Shortness of Breath. [facility] albuterol 90 mcg/actuati on inhaler 02-04 00:00: 00 04-19 00:00 :00 No [id number] 2{puff} Inhale 2 Puffs every 4 (four) hours as needed for Wheezing or Shortness of Breath. [facility] albuterol 90 mcg/actuati on inhaler 02-04 00:00: 00 04-19 00:00 :00 No [id number] 2{puff} Inhale 2 Puffs every 4 (four) hours as needed for Wheezing or Shortness of Breath. [facility] ipratropium -albuteroL (DUONEB) 0.5 mg-3 mg(2.5 mg base)/3 mL nebulizer solution 3 mL 02-03 21:00: 00 Yes 3mL 3 mL, Inhalation , QID, First dose on Tue02/03/23 at 1600, Until Discontinu ed, Routine [facility] methylpredn isolone sod succ (SOLU-MEDRO L) injection 125 mg 02-03 18:45: 00 02-03 18:16 :00 No 125mg 125 mg, Intravenou s, ONCE, 1 dose, On Tue02/03/23 at 1345, 2 mL [facility] ipratropium -albuteroL (DUONEB) 0.5 mg-3 mg(2.5 mg base)/3 mL nebulizer solution 3 mL 02-02 23:15: 00 02-02 22:13 :00 No 3mL 3 mL, Inhalation , ONCE, 1 dose, On Tue02/02/23 at 1815, Routine [facility] albuterol 90 mcg/actuati on inhaler 01-31 00:00: 00 Yes [id number] 2{puff} Inhale 2 Puffs every 4 (four) hours as needed for Wheezing, Shortness of Breath or Bronchospa sm. [facility] fluticasone propion-bella meteroL (ADVAIR DISKUS) 250-50 mcg/dose inhalation disk 01-31 00:00: 00 Yes [id number] 1{puff} Inhale 1 Puff in the morning and 1 Puff in the evening. [facility] montelukast 10 mg tablet 01-31 00:00: 00 Yes [id number] 10mg Take 1 tablet by mouth in the morning. [facility] tiotropium 18 mcg inhalation 01-31 00:00: 00 Yes [id number] 18ug Inhale 1 capsule in the morning. [facility] albuterol 90 mcg/actuati on inhaler 01-31 00:00: 00 Yes [id number] 2{puff} Inhale 2 Puffs every 4 (four) hours as needed for Wheezing, Shortness of Breath or Bronchospa sm. [facility] fluticasone propion-bella meteroL (ADVAIR DISKUS) 250-50 mcg/dose inhalation disk 01-31 00:00: 00 Yes [id number] 1{puff} Inhale 1 Puff in the morning and 1 Puff in the evening. [facility] montelukast 10 mg tablet 01-31 00:00: 00 Yes [id number] 10mg Take 1 tablet by mouth in the morning. [facility] tiotropium 18 mcg inhalation 01-31 00:00: 00 Yes [id number] 18ug Inhale 1 capsule in the morning. [facility] albuterol 90 mcg/actuati on inhaler 01-31 00:00: 00 Yes [id number] 2{puff} Inhale 2 Puffs every 4 (four) hours as needed for Wheezing, Shortness of Breath or Bronchospa sm. [facility] fluticasone propion-bella meteroL (ADVAIR DISKUS) 250-50 mcg/dose inhalation disk 01-31 00:00: 00 Yes [id number] 1{puff} Inhale 1 Puff in the morning and 1 Puff in the evening. [facility] montelukast 10 mg tablet 01-31 00:00: 00 Yes [id number] 10mg Take 1 tablet by mouth in the morning. [facility] tiotropium 18 mcg inhalation 0 15 00:00: 00 Yes [id number] 18ug Inhale 1 capsule in the morning. [facility] albuterol 90 mcg/actuati on inhaler 2022-0 15 00:00: 00 Yes [id number] 2{puff} Inhale 2 Puffs every 4 (four) hours as needed for Wheezing, Shortness of Breath or Bronchospa sm. [facility] fluticasone propion-bella meteroL (ADVAIR DISKUS) 250-50 mcg/dose inhalation disk 2022-0 15 00:00: 00 Yes [id number] 1{puff} Inhale 1 Puff in the morning and 1 Puff in the evening. [facility] montelukast 10 mg tablet 2022-0 15 00:00: 00 Yes [id number] 10mg Take 1 tablet by mouth in the morning. [facility] tiotropium 18 mcg inhalation 2022-0 -15 00:00: 00 Yes [id number] 18ug Inhale 1 capsule in the morning. [facility] fluticasone propion-bella meteroL (ADVAIR DISKUS) 250-50 mcg/dose inhalation disk 2022-0 15 00:00: 00 Yes [id number] 1{puff} Inhale 1 Puff in the morning and 1 Puff in the evening. [facility] montelukast 10 mg tablet 2022-0 15 00:00: 00 Yes [id number] 10mg Take 1 tablet by mouth in the morning. [facility] tiotropium 18 mcg inhalation 2022-0 15 00:00: 00 Yes [id number] 18ug Inhale 1 capsule in the morning. [facility] fluticasone propion-bella meteroL (ADVAIR DISKUS) 250-50 mcg/dose inhalation disk 2022-0 15 00:00: 00 Yes [id number] 1{puff} Inhale 1 Puff in the morning and 1 Puff in the evening. [facility] montelukast 10 mg tablet 2022-0 15 00:00: 00 Yes [id number] 10mg Take 1 tablet by mouth in the morning. [facility] tiotropium 18 mcg inhalation 2022-0 -15 00:00: 00 Yes [id number] 18ug Inhale 1 capsule in the morning. [facility] fluticasone propion-bella meteroL (ADVAIR DISKUS) 250-50 mcg/dose inhalation disk 3-0 5-15 00:00: 00 Yes [id number] 1{puff} Inhale 1 Puff in the morning and 1 Puff in the evening. [facility] montelukast 10 mg tablet 3-0 5-15 00:00: 00 Yes [id number] 10mg Take 1 tablet by mouth in the morning. [facility] tiotropium 18 mcg inhalation 3-0 5-15 00:00: 00 Yes [id number] 18ug Inhale 1 capsule in the morning. [facility] fluticasone propion-bella meteroL (ADVAIR DISKUS) 250-50 mcg/dose inhalation disk 3-0 5-15 00:00: 00 Yes [id number] 1{puff} Inhale 1 Puff in the morning and 1 Puff in the evening. [facility] montelukast 10 mg tablet 2022-0 -15 00:00: 00 Yes [id number] 10mg Take 1 tablet by mouth in the morning. [facility] tiotropium 18 mcg inhalation 3-0 5-15 00:00: 00 Yes [id number] 18ug Inhale 1 capsule in the morning. [facility] fluticasone propion-bella meteroL (ADVAIR DISKUS) 250-50 mcg/dose inhalation disk 3-0 5-15 00:00: 00 Yes [id number] 1{puff} Inhale 1 Puff in the morning and 1 Puff in the evening. [facility] montelukast 10 mg tablet 3-0 5-15 00:00: 00 Yes [id number] 10mg Take 1 tablet by mouth in the morning. [facility] tiotropium 18 mcg inhalation 3-0 5-15 00:00: 00 Yes [id number] 18ug Inhale 1 capsule in the morning. [facility] fluticasone propion-bella meteroL (ADVAIR DISKUS) 250-50 mcg/dose inhalation disk 3-0 5-15 00:00: 00 Yes [id number] 1{puff} Inhale 1 Puff in the morning and 1 Puff in the evening. [facility] montelukast 10 mg tablet 2022-0 -15 00:00: 00 Yes [id number] 10mg Take 1 tablet by mouth in the morning. [facility] tiotropium 18 mcg inhalation 3-0 5-15 00:00: 00 Yes [id number] 18ug Inhale 1 capsule in the morning. [facility] fluticasone propion-bella meteroL (ADVAIR DISKUS) 250-50 mcg/dose inhalation disk 3-0 5-15 00:00: 00 Yes [id number] 1{puff} Inhale 1 Puff in the morning and 1 Puff in the evening. [facility] montelukast 10 mg tablet 2022-0 -15 00:00: 00 Yes [id number] 10mg Take 1 tablet by mouth in the morning. [facility] tiotropium 18 mcg inhalation 2022-0 -15 00:00: 00 Yes [id number] 18ug Inhale 1 capsule in the morning. [facility] fluticasone propion-bella meteroL (ADVAIR DISKUS) 250-50 mcg/dose inhalation disk 2022-0 15 00:00: 00 Yes [id number] 1{puff} Inhale 1 Puff in the morning and 1 Puff in the evening. [facility] montelukast 10 mg tablet 2022-0 -15 00:00: 00 Yes [id number] 10mg Take 1 tablet by mouth in the morning. [facility] tiotropium 18 mcg inhalation 3-0 5-15 00:00: 00 Yes [id number] 18ug Inhale 1 capsule in the morning. [facility] fluticasone propion-bella meteroL (ADVAIR DISKUS) 250-50 mcg/dose inhalation disk 3-0 5-15 00:00: 00 Yes [id number] 1{puff} Inhale 1 Puff in the morning and 1 Puff in the evening. [facility] montelukast 10 mg tablet 2023-0 5-15 00:00: 00 Yes [id number] 10mg Take 1 tablet by mouth in the morning. [facility] tiotropium 18 mcg inhalation 2022-0 5-15 00:00: 00 Yes [id number] 18ug Inhale 1 capsule in the morning. [facility] fluticasone propion-bella meteroL (ADVAIR DISKUS) 250-50 mcg/dose inhalation disk 2022-0 5-15 00:00: 00 Yes [id number] 1{puff} Inhale 1 Puff in the morning and 1 Puff in the evening. [facility] montelukast 10 mg tablet 2022-0 5-15 00:00: 00 Yes [id number] 10mg Take 1 tablet by mouth in the morning. [facility] tiotropium 18 mcg inhalation 2022-0 5-15 00:00: 00 Yes [id number] 18ug Inhale 1 capsule in the morning. [facility] montelukast 10 mg tablet 2022-0 -15 00:00: 00 Yes [id number] 10mg Take 1 tablet by mouth in the morning. [facility] montelukast 10 mg tablet 2022-0 -15 00:00: 00 Yes [id number] 10mg Take 1 tablet by mouth in the morning. [facility] montelukast 10 mg tablet 2022-0 -15 00:00: 00 Yes [id number] 10mg Take 1 tablet by mouth in the morning. [facility] montelukast 10 mg tablet 2022-0 5-15 00:00: 00 Yes [id number] 10mg Take 1 tablet by mouth in the morning. [facility] montelukast 10 mg tablet 3-0 5-15 00:00: 00 Yes [id number] 10mg Take 1 tablet by mouth in the morning. [facility] montelukast 10 mg tablet 3-0 5-15 00:00: 00 Yes [id number] 10mg Take 1 tablet by mouth in the morning. [facility] fluticasone propion-bella meteroL (ADVAIR DISKUS) 250-50 mcg/dose inhalation disk 15 00:00: 00 04-19 00:00 :00 No [id number] 1{puff} Inhale 1 Puff in the morning and 1 Puff in the evening. [facility] tiotropium 18 mcg inhalation 15 00:00: 00 04-19 00:00 :00 No [id number] 18ug Inhale 1 capsule in the morning. [facility] fluticasone propion-bella meteroL (ADVAIR DISKUS) 250-50 mcg/dose inhalation disk 01-31 00:00: 00 04-19 00:00 :00 No [id number] 1{puff} Inhale 1 Puff in the morning and 1 Puff in the evening. [facility] tiotropium 18 mcg inhalation 01-31 00:00: 00 04-19 00:00 :00 No [id number] 18ug Inhale 1 capsule in the morning. [facility] albuterol 90 mcg/actuati on inhaler 01-31 00:00: 00 02-04 00:00 :00 No [id number] 2{puff} Inhale 2 Puffs every 4 (four) hours as needed for Wheezing, Shortness of Breath or Bronchospa sm. [facility] ipratropium -albuteroL (DUONEB) 0.5 mg-3 mg(2.5 mg base)/3 mL nebulizer solution 3 mL 01-29 14:30: 00 01-29 13:29 :00 No 3mL 3 mL, Inhalation , ONCE, 1 dose, On 01/29/23 at 0930, [facility] predniSONE (DELTASONE) tablet 60 mg 01-29 13:30: 00 01-29 13:22 :00 No 60mg 60 mg, Oral, ONCE, 1 dose, On 01/29/23 at 0830, [facility] ipratropium -albuteroL (DUONEB) 0.5 mg-3 mg(2.5 mg base)/3 mL nebulizer solution 3 mL 01-27 13:00: 00 Yes 3mL 3 mL, Inhalation , QID, First dose on Tue01/27/23 at 0800, Until Discontinu ed, Routine [facility] ipratropium -albuteroL (DUONEB) 0.5 mg-3 mg(2.5 mg base)/3 mL nebulizer solution 3 mL 01-24 18:00: 00 01-24 18:15 :00 No 3mL 3 mL, Inhalation , ONCE, 1 dose, On Tue01/24/23 at 1300, [facility] furosemide (LASIX) injection 40 mg 01-24 18:00: 00 01-24 18:42 :00 No 40mg 40 mg, IV Push, ONCE, 1 dose, On Tue01/24/23 at 1300, [facility] aspirin tablet 325 mg 01-24 18:00: 00 01-24 18:44 :00 No 325mg 325 mg, Oral, ONCE, 1 dose, On Tue01/24/23 at 1300, STAT [facility] busPIRone 10 mg tablet 01-24 15:48: 43 Yes 10mg Take 1 tablet by mouth in the morning and 1 tablet in the evening. [facility] rivaroxaban 15 mg tablet 01-24 15:48: 43 Yes 15mg Take 1 tablet by mouth in the morning. [facility] ASPIRIN ORAL 01-24 15:48: 43 Yes 81mg Take 81 mg by mouth in the morning. tablet [facility] busPIRone 10 mg tablet 01-24 15:48: 43 Yes 10mg Take 1 tablet by mouth in the morning and 1 tablet in the evening. [facility] rivaroxaban 15 mg tablet 01-24 15:48: 43 Yes 15mg Take 1 tablet by mouth in the morning. [facility] ASPIRIN ORAL 01-24 15:48: 43 Yes 81mg Take 81 mg by mouth in the morning. tablet [facility] busPIRone 10 mg tablet 2023-0 5-08 15:48: 43 Yes 10mg Take 1 tablet by mouth in the morning and 1 tablet in the evening. [facility] rivaroxaban 15 mg tablet 2023-0 5-08 15:48: 43 Yes 15mg Take 1 tablet by mouth in the morning. [facility] ASPIRIN ORAL 2023-0 5-08 15:48: 43 Yes 81mg Take 81 mg by mouth in the morning. tablet [facility] busPIRone 10 mg tablet 3-0 5-08 15:48: 43 Yes 10mg Take 1 tablet by mouth in the morning and 1 tablet in the evening. [facility] rivaroxaban 15 mg tablet 2022-0 5-08 15:48: 43 Yes 15mg Take 1 tablet by mouth in the morning. [facility] ASPIRIN ORAL 2023-0 5-08 15:48: 43 Yes 81mg Take 81 mg by mouth in the morning. tablet [facility] busPIRone 10 mg tablet 3-0 5-08 15:48: 43 Yes 10mg Take 1 tablet by mouth in the morning and 1 tablet in the evening. [facility] rivaroxaban 15 mg tablet 2022-0 5-08 15:48: 43 Yes 15mg Take 1 tablet by mouth in the morning. [facility] ASPIRIN ORAL 2023-0 5-08 15:48: 43 Yes 81mg Take 81 mg by mouth in the morning. tablet [facility] busPIRone 10 mg tablet 3-0 5-08 15:48: 43 Yes 10mg Take 1 tablet by mouth in the morning and 1 tablet in the evening. [facility] rivaroxaban 15 mg tablet 3-0 5-08 15:48: 43 Yes 15mg Take 1 tablet by mouth in the morning. [facility] ASPIRIN ORAL 2023-0 5-08 15:48: 43 Yes 81mg Take 81 mg by mouth in the morning. tablet [facility] busPIRone 10 mg tablet 2023-0 5-08 15:48: 43 Yes 10mg Take 1 tablet by mouth in the morning and 1 tablet in the evening. [facility] rivaroxaban 15 mg tablet 2023-0 5-08 15:48: 43 Yes 15mg Take 1 tablet by mouth in the morning. [facility] ASPIRIN ORAL 2023-0 5-08 15:48: 43 Yes 81mg Take 81 mg by mouth in the morning. tablet [facility] busPIRone 10 mg tablet 2023-0 5-08 15:48: 43 Yes 10mg Take 1 tablet by mouth in the morning and 1 tablet in the evening. [facility] rivaroxaban 15 mg tablet 2023-0 5-08 15:48: 43 Yes 15mg Take 1 tablet by mouth in the morning. [facility] ASPIRIN ORAL 2023-0 5-08 15:48: 43 Yes 81mg Take 81 mg by mouth in the morning. tablet [facility] busPIRone 10 mg tablet 3-0 5-08 15:48: 43 Yes 10mg Take 1 tablet by mouth in the morning and 1 tablet in the evening. [facility] rivaroxaban 15 mg tablet 3-0 5-08 15:48: 43 Yes 15mg Take 1 tablet by mouth in the morning. [facility] ASPIRIN ORAL 2023-0 5-08 15:48: 43 Yes 81mg Take 81 mg by mouth in the morning. tablet [facility] busPIRone 10 mg tablet 3-0 5-08 15:48: 43 Yes 10mg Take 1 tablet by mouth in the morning and 1 tablet in the evening. [facility] rivaroxaban 15 mg tablet 3-0 5-08 15:48: 43 Yes 15mg Take 1 tablet by mouth in the morning. [facility] ASPIRIN ORAL 2023-0 5-08 15:48: 43 Yes 81mg Take 81 mg by mouth in the morning. tablet [facility] busPIRone 10 mg tablet 2023-0 5-08 15:48: 43 Yes 10mg Take 1 tablet by mouth in the morning and 1 tablet in the evening. [facility] rivaroxaban 15 mg tablet 2023-0 5-08 15:48: 43 Yes 15mg Take 1 tablet by mouth in the morning. [facility] ASPIRIN ORAL 2023-0 5-08 15:48: 43 Yes 81mg Take 81 mg by mouth in the morning. tablet [facility] busPIRone 10 mg tablet 01-24 15:48: 43 Yes 10mg Take 1 tablet by mouth in the morning and 1 tablet in the evening. [facility] rivaroxaban 15 mg tablet 01-24 15:48: 43 Yes 15mg Take 1 tablet by mouth in the morning. [facility] ASPIRIN ORAL 01-24 15:48: 43 Yes 81mg Take 81 mg by mouth in the morning. tablet [facility] busPIRone 10 mg tablet 01-24 15:48: 43 Yes 10mg Take 1 tablet by mouth in the morning and 1 tablet in the evening. [facility] rivaroxaban 15 mg tablet 01-24 15:48: 43 Yes 15mg Take 1 tablet by mouth in the morning. [facility] ASPIRIN ORAL 01-24 15:48: 43 Yes 81mg Take 81 mg by mouth in the morning. tablet [facility] levalbutero l (XOPENEX) nebulizer solution 1.25 mg 01-23 00:15: 00 01-22 23:35 :00 No 1.25mg 1.25 mg, Inhalation , ONCE, 1 dose, On 01/22/23 at 1915, Routine [facility] ipratropium (ATROVENT) 0.02 % nebulizer solution 0.5 mg 01-22 23:30: 00 01-22 23:36 :00 No .5mg 0.5 mg, Inhalation , ONCE, 1 dose, On 01/22/23 at 1830, [facility] diltiazem (CARDIZEM) tablet 30 mg 01-21 23:00: 00 Yes 30mg 30 mg, Oral, Q6H, First dose on Tue01/21/23 at 1800, Until Discontinu ed, [facility]ine [facility]one sod succ (SOLU-MEDRO L) injection 125 mg 01-21 23:00: 00 Yes 125mg 125 mg, Intravenou s, Q6H, First dose on Tue01/21/23 at 1800, Until Discontinu ed, Routine [facility] ipratropium -albuteroL (DUONEB) 0.5 mg-3 mg(2.5 mg base)/3 mL nebulizer solution 3 mL 01-21 20:45: 00 01-21 19:54 :00 No 3mL 3 mL, Inhalation , ONCE, 1 dose, On Tue01/21/23 at 1545, Routine [facility] diltiazem (CARDIZEM IV) injection 15 mg 01-21 19:45: 00 01-21 20:06 :00 No 15mg 15 mg, IV Push, ONCE, 1 dose, On Tue01/21/23 at 1445, STAT
Fa culty member approving Restricted medication : [facility] NaCl 0.9% (NS) bolus infusion 1,000 mL 01-21 19:45: 00 01-21 22:17 :00 No 1000mL at 999 mL/hr, 1,000 mL, IV Infusion, ONCE, 1 dose, On Tue01/21/23 at 1445, STAT [facility] predniSONE 20 mg tablet 01-20 00:00: 00 01-25 04:59 :00 No [id number] 40mg Take 2 tablets by mouth in the morning for 4 days. [facility] predniSONE 20 mg tablet 01-20 00:00: 00 01-25 04:59 :00 No [id number] 40mg Take 2 tablets by mouth in the morning for 4 days. [facility] predniSONE 20 mg tablet 01-20 00:00: 00 01-25 04:59 :00 No [id number] 40mg Take 2 tablets by mouth in the morning for 4 days. [facility] predniSONE 20 mg tablet 01-20 00:00: 00 01-25 04:59 :00 No [id number] 40mg Take 2 tablets by mouth in the morning for 4 days. [facility] predniSONE 20 mg tablet 01-20 00:00: 00 01-25 04:59 :00 No [id number] 40mg Take 2 tablets by mouth in the morning for 4 days. [facility] predniSONE 20 mg tablet 01-20 00:00: 00 01-25 04:59 :00 No [id number] 40mg Take 2 tablets by mouth in the morning for 4 days. [facility] predniSONE 20 mg tablet 01-20 00:00: 00 01-25 04:59 :00 No [id number] 40mg Take 2 tablets by mouth in the morning for 4 days. [facility] enoxaparin (LOVENOX) injection 40 mg 01-19 22:00: 00 Yes 40mg 40 mg, Subcutaneo us, DAILY, First dose on Tue01/19/23 at 1700, Until Discontinu ed, Routine [facility] levalbutero l (XOPENEX) nebulizer solution 1.25 mg 01-19 21:00: 00 Yes 1.25mg 1.25 mg, Inhalation , QID, First dose (after last modificati on) on Tue01/19/23 at 1600, Until Discontinu ed, [facility] ([facility]ENT[facility] 0.02 % nebulizer solution 0.5 mg 01-19 21:00: 00 Yes .5mg 0.5 mg, Inhalation , QID, First dose (after last modificati on) on Tue01/19/23 at 1600, Until Discontinu ed, Routine [facility] busPIRone 10 mg tablet 01-19 19:49: 16 Yes 10mg Take 1 tablet by mouth in the morning and 1 tablet in the evening. [facility] rivaroxaban 15 mg tablet 01-19 19:49: 16 Yes 15mg Take 1 tablet by mouth in the morning. [facility] ASPIRIN ORAL 01-19 19:49: 16 Yes 81mg Take 81 mg by mouth in the morning. tablet [facility] busPIRone 10 mg tablet 2022-0 - 19:49: 16 Yes 10mg Take 1 tablet by mouth in the morning and 1 tablet in the evening. [facility] rivaroxaban 15 mg tablet 0 01-19 19:49: 16 Yes 15mg Take 1 tablet by mouth in the morning. [facility] ASPIRIN ORAL 2022-0 01-19 19:49: 16 Yes 81mg Take 81 mg by mouth in the morning. tablet [facility] busPIRone 10 mg tablet 0 01-19 19:49: 16 Yes 10mg Take 1 tablet by mouth in the morning and 1 tablet in the evening. [facility] rivaroxaban 15 mg tablet 0 01-19 19:49: 16 Yes 15mg Take 1 tablet by mouth in the morning. [facility] ASPIRIN ORAL 2022-0 01-19 19:49: 16 Yes 81mg Take 81 mg by mouth in the morning. tablet [facility] busPIRone 10 mg tablet 0 01-19 19:49: 16 Yes 10mg Take 1 tablet by mouth in the morning and 1 tablet in the evening. [facility] rivaroxaban 15 mg tablet 0 01-19 19:49: 16 Yes 15mg Take 1 tablet by mouth in the morning. [facility] ASPIRIN ORAL 2022-0 01-19 19:49: 16 Yes 81mg Take 81 mg by mouth in the morning. tablet [facility] busPIRone 10 mg tablet 2022-0 01-19 19:49: 16 Yes 10mg Take 1 tablet by mouth in the morning and 1 tablet in the evening. [facility] rivaroxaban 15 mg tablet 2022-0 01-19 19:49: 16 Yes 15mg Take 1 tablet by mouth in the morning. [facility] ASPIRIN ORAL 2022-0 - 19:49: 16 Yes 81mg Take 81 mg by mouth in the morning. tablet [facility] busPIRone 10 mg tablet 2022-0 01-19 19:49: 16 Yes 10mg Take 1 tablet by mouth in the morning and 1 tablet in the evening. [facility] rivaroxaban 15 mg tablet 01-19 19:49: 16 Yes 15mg Take 1 tablet by mouth in the morning. [facility] ASPIRIN ORAL 01-19 19:49: 16 Yes 81mg Take 81 mg by mouth in the morning. tablet [facility] benazepriL 10 mg tablet 01-19 17:28: 05 01-19 00:00 :00 No 10mg Take 1 tablet by mouth in the morning. [facility] potassium chloride (KCL-20 ORAL) 01-19 17:28: 01-19 00:00 :00 No 1{tbl} Take 1 tablet by mouth in the morning and 1 tablet in the evening. [facility] aspirin chewable tablet 81 mg 01-19 14:00: 00 Yes 81mg 81 mg, Oral, DAILY, First dose on Tue01/19/23 at 0900, Until Discontinu ed [facility] predniSONE (DELTASONE) tablet 40 mg 01-19 14:00: 00 01-24 13:59 :00 No 40mg 40 mg, Oral, DAILY, 5 doses, First dose on Tue01/19/23 at 0900, Last dose on Tue01/23/23 at 0900, Routine [facility] busPIRone (BUSPAR) tablet 10 mg 01-19 13:00: 00 Yes 10mg 10 mg, Oral, BID, First dose on Tue01/19/23 at 0800, Until Discontinu ed, Routine [facility] ipratropium (ATROVENT) 0.02 % nebulizer solution 0.5 mg 01-19 13:00: 00 01-19 19:13 :37 No .5mg 0.5 mg, Inhalation , TID, First dose (after last modificati on) on Tue01/19/23 at 0800, Until Discontinu ed, Routine [facility] levalbutero l (XOPENEX) nebulizer solution 1.25 mg 01-19 13:00: 00 01-19 19:13 :37 No 1.25mg 1.25 mg, Inhalation , TID, First dose on Tue01/19/23 at 0800, Until Discontinu ed, Routine [facility] sodium polystyrene sulfonate (KAYEXALATE ) 15 gram/60 mL suspension 15 g 01-19 13:00: 00 01-19 13:22 :00 No 15g 15 g, Oral, ONCE, 1 dose, On Tue01/19/23 at 0800, Routine [facility] ipratropium (ATROVENT) 0.02 % nebulizer solution 0.5 mg 01-19 09:00: 00 01-19 12:09 :19 No .5mg 0.5 mg, Inhalation , Q4H, First dose on Tue01/19/23 at 0400, Until Discontinu ed, Routine [facility] levoFLOXaci n (LEVAQUIN) tablet 500 mg 01-19 08:15: 00 01-24 08:14 :00 No 500mg 500 mg, Oral, Q24H ABX, 5 doses, First dose on Tue01/19/23 at 0315, Last dose on Tue01/23/23 at 0315, MICHAEL
Re ason for Anti-Infec tive: Empiric Therapy for Suspected Infection< br>Empiric Therapy Site: Respirator y
[facility]: [facility] guaiFENesin 100 mg/5 mL solution 200 mg 01-19 08:04: 52 Yes 200mg 200 mg, Oral, Q6HPRN, Starting on Tue01/19/23 at 0304, Until Discontinu ed, Routine, Cough [facility] ondansetron (ZOFRAN (PF)) injection 4 mg 01-19 08:03: 53 Yes 4mg 4 mg, Slow IV Push, Q6HPRN, Starting on Tue01/19/23 at 0303, Until Discontinu ed, Routine, Nausea and Vomiting (N/V) [facility] morpHINE (2 mg/mL) injection 2 mg 01-19 08:03: 43 01-20 08:02 :43 No 2mg 2 mg, Slow IV Push, Q4HPRN, Starting on Tue01/19/23 at 0303, Until Elizabeth 01/20/23 at 0302, Routine, Pain (scale 7-10) [facility] HYDROcodone -acetaminop hen (NORCO 5) 5-325 mg tablet 1 tablet 01-19 08:03: 39 01-21 08:02 :39 No 1{tbl} 1 tablet, Oral, Q6HPRN, Starting on Tue01/19/23 at 0303, Until Tue01/21/23 at 0302, Routine, Pain (scale 4-6) [facility] acetaminoph en (TYLENOL) tablet 650 mg 01-19 08:03: 35 Yes 650mg 650 mg, Oral, Q6HPRN, Starting on Tue01/19/23 at 030, Until Discontinu ed, Routine, Pain (scale 1-3) [facility] levalbutero l (XOPENEX) nebulizer solution 1.25 mg 01-19 07:30: 00 01-19 07:08 :00 No 1.25mg 1.25 mg, Inhalation , ONCE, 1 dose, On Tue01/19/23 at 0230, Routine [facility] dexamethaso ne sod phos PF injection 10 mg 01-19 06:58: 00 01-19 07:06 :00 No 10mg 10 mg, Oral, ONCE, 1 dose, On Tue01/19/23 at 0200, 1 mL [facility] ipratropium (ATROVENT) 0.02 % nebulizer solution 0.5 mg 01-19 06:45: 00 01-19 07:09 :00 No .5mg 0.5 mg, Inhalation , ONCE, 1 dose, On Tue01/19/23 at 0145, MICHAEL [facility] ipratropium 0.02 % nebulizer solution 01-19 00:00: 00 Yes [id number] .5mg Inhale 2.5 mL every 6 (six) hours as needed for Wheezing, Shortness of Breath, Bronchospa sm or Chest tightness. [facility] guaiFENesin 100 mg/5 mL solution 01-19 00:00: 00 Yes [id number] 200mg Take 10 mL by mouth every 6 (six) hours as needed for Cough. [facility] ipratropium 0.02 % nebulizer solution 01-19 00:00: 00 Yes [id number] .5mg Inhale 2.5 mL every 6 (six) hours as needed for Wheezing, Shortness of Breath, Bronchospa sm or Chest tightness. [facility] guaiFENesin 100 mg/5 mL solution 01-19 00:00: 00 Yes [id number] 200mg Take 10 mL by mouth every 6 (six) hours as needed for Cough. [facility] ipratropium 0.02 % nebulizer solution 01-19 00:00: 00 Yes [id number] .5mg Inhale 2.5 mL every 6 (six) hours as needed for Wheezing, Shortness of Breath, Bronchospa sm or Chest tightness. [facility] guaiFENesin 100 mg/5 mL solution 01-19 00:00: 00 Yes [id number] 200mg Take 10 mL by mouth every 6 (six) hours as needed for Cough. [facility] ipratropium 0.02 % nebulizer solution 01-19 00:00: 00 Yes [id number] .5mg Inhale 2.5 mL every 6 (six) hours as needed for Wheezing, Shortness of Breath, Bronchospa sm or Chest tightness. [facility] guaiFENesin 100 mg/5 mL solution 01-19 00:00: 00 Yes [id number] 200mg Take 10 mL by mouth every 6 (six) hours as needed for Cough. [facility] ipratropium 0.02 % nebulizer solution 01-19 00:00: 00 Yes [id number] .5mg Inhale 2.5 mL every 6 (six) hours as needed for Wheezing, Shortness of Breath, Bronchospa sm or Chest tightness. [facility] guaiFENesin 100 mg/5 mL solution 01-19 00:00: 00 Yes [id number] 200mg Take 10 mL by mouth every 6 (six) hours as needed for Cough. [facility] ipratropium 0.02 % nebulizer solution 01-19 00:00: 00 Yes [id number] .5mg Inhale 2.5 mL every 6 (six) hours as needed for Wheezing, Shortness of Breath, Bronchospa sm or Chest tightness. [facility] guaiFENesin 100 mg/5 mL solution 01-19 00:00: 00 Yes [id number] 200mg Take 10 mL by mouth every 6 (six) hours as needed for Cough. [facility] ipratropium 0.02 % nebulizer solution 01-19 00:00: 00 Yes [id number] .5mg Inhale 2.5 mL every 6 (six) hours as needed for Wheezing, Shortness of Breath, Bronchospa sm or Chest tightness. [facility] guaiFENesin 100 mg/5 mL solution 01-19 00:00: 00 Yes [id number] 200mg Take 10 mL by mouth every 6 (six) hours as needed for Cough. [facility] ipratropium 0.02 % nebulizer solution 01-19 00:00: 00 Yes [id number] .5mg Inhale 2.5 mL every 6 (six) hours as needed for Wheezing, Shortness of Breath, Bronchospa sm or Chest tightness. [facility] guaiFENesin 100 mg/5 mL solution 01-19 00:00: 00 Yes [id number] 200mg Take 10 mL by mouth every 6 (six) hours as needed for Cough. [facility] guaiFENesin 100 mg/5 mL solution 0 01-19 00:00: 00 Yes [id number] 200mg Take 10 mL by mouth every 6 (six) hours as needed for Cough. [facility] guaiFENesin 100 mg/5 mL solution 2023-0 5-03 00:00: 00 Yes [id number] 200mg Take 10 mL by mouth every 6 (six) hours as needed for Cough. [facility]/5 mL solution 2023-0 5-03 00:00: 00 Yes [id number] 200mg Take 10 mL by mouth every 6 (six) hours as needed for Cough. [facility] mg/5 mL solution 2023-0 5-03 00:00: 00 Yes [id number] 200mg Take 10 mL by mouth every 6 (six) hours as needed for Cough. [facility] guaiFENesin 100 mg/5 mL solution 3-0 5-03 00:00: 00 Yes [id number] 200mg Take 10 mL by mouth every 6 (six) hours as needed for Cough. [facility] guaiFENesin 100 mg/5 mL solution 3-0 5-03 00:00: 00 Yes [id number] 200mg Take 10 mL by mouth every 6 (six) hours as needed for Cough. [facility] guaiFENesin 100 mg/5 mL solution 3-0 5-03 00:00: 00 Yes [id number] 200mg Take 10 mL by mouth every 6 (six) hours as needed for Cough. [facility] guaiFENesin 100 mg/5 mL solution 3-0 5-03 00:00: 00 Yes [id number] 200mg Take 10 mL by mouth every 6 (six) hours as needed for Cough. [facility] guaiFENesin 100 mg/5 mL solution 3-0 5-03 00:00: 00 Yes [id number] 200mg Take 10 mL by mouth every 6 (six) hours as needed for Cough. [facility] guaiFENesin 100 mg/5 mL solution 3-0 5-03 00:00: 00 Yes [id number] 200mg Take 10 mL by mouth every 6 (six) hours as needed for Cough. [facility] guaiFENesin 100 mg/5 mL solution 2023-0 5-03 00:00: 00 Yes [id number] 200mg Take 10 mL by mouth every 6 (six) hours as needed for Cough. [facility] guaiFENesin 100 mg/5 mL solution 01-19 00:00: 00 Yes [id number] 200mg Take 10 mL by mouth every 6 (six) hours as needed for Cough. [facility] guaiFENesin 100 mg/5 mL solution 01-19 00:00: 00 Yes [id number] 200mg Take 10 mL by mouth every 6 (six) hours as needed for Cough. [facility] ipratropium 0.02 % nebulizer solution 01-19 00:00: 00 Yes [id number] .5mg Inhale 2.5 mL every 6 (six) hours as needed for Wheezing, Shortness of Breath, Bronchospa sm or Chest tightness. [facility] guaiFENesin 100 mg/5 mL solution 01-19 00:00: 00 Yes [id number] 200mg Take 10 mL by mouth every 6 (six) hours as needed for Cough. [facility] ipratropium 0.02 % nebulizer solution 01-19 00:00: 00 Yes [id number] .5mg Inhale 2.5 mL every 6 (six) hours as needed for Wheezing, Shortness of Breath, Bronchospa sm or Chest tightness. [facility] guaiFENesin 100 mg/5 mL solution 01-19 00:00: 00 Yes [id number] 200mg Take 10 mL by mouth every 6 (six) hours as needed for Cough. [facility] ipratropium 0.02 % nebulizer solution 01-19 00:00: 00 Yes [id number] .5mg Inhale 2.5 mL every 6 (six) hours as needed for Wheezing, Shortness of Breath, Bronchospa sm or Chest tightness. [facility] guaiFENesin 100 mg/5 mL solution 01-19 00:00: 00 Yes [id number] 200mg Take 10 mL by mouth every 6 (six) hours as needed for Cough. [facility] ipratropium 0.02 % nebulizer solution 01-19 00:00: 00 Yes [id number] .5mg Inhale 2.5 mL every 6 (six) hours as needed for Wheezing, Shortness of Breath, Bronchospa sm or Chest tightness. [facility] guaiFENesin 100 mg/5 mL solution 01-19 00:00: 00 Yes [id number] 200mg Take 10 mL by mouth every 6 (six) hours as needed for Cough. [facility] ipratropium 0.02 % nebulizer solution 01-19 00:00: 00 Yes [id number] .5mg Inhale 2.5 mL every 6 (six) hours as needed for Wheezing, Shortness of Breath, Bronchospa sm or Chest tightness. [facility] guaiFENesin 100 mg/5 mL solution 01-19 00:00: 00 Yes [id number] 200mg Take 10 mL by mouth every 6 (six) hours as needed for Cough. [facility] ipratropium 0.02 % nebulizer solution 01-19 00:00: 00 Yes [id number] .5mg Inhale 2.5 mL every 6 (six) hours as needed for Wheezing, Shortness of Breath, Bronchospa sm or Chest tightness. [facility] guaiFENesin 100 mg/5 mL solution 01-19 00:00: 00 Yes [id number] 200mg Take 10 mL by mouth every 6 (six) hours as needed for Cough. [facility] ipratropium 0.02 % nebulizer solution 01-19 00:00: 00 Yes [id number] .5mg Inhale 2.5 mL every 6 (six) hours as needed for Wheezing, Shortness of Breath, Bronchospa sm or Chest tightness. [facility] guaiFENesin 100 mg/5 mL solution 01-19 00:00: 00 Yes [id number] 200mg Take 10 mL by mouth every 6 (six) hours as needed for Cough. [facility] ipratropium 0.02 % nebulizer solution 01-19 00:00: 00 Yes [id number] .5mg Inhale 2.5 mL every 6 (six) hours as needed for Wheezing, Shortness of Breath, Bronchospa sm or Chest tightness. [facility] guaiFENesin 100 mg/5 mL solution 01-19 00:00: 00 Yes [id number] 200mg Take 10 mL by mouth every 6 (six) hours as needed for Cough. [facility] ipratropium 0.02 % nebulizer solution 01-19 00:00: 00 Yes [id number] .5mg Inhale 2.5 mL every 6 (six) hours as needed for Wheezing, Shortness of Breath, Bronchospa sm or Chest tightness. [facility] guaiFENesin 100 mg/5 mL solution 01-19 00:00: 00 Yes [id number] 200mg Take 10 mL by mouth every 6 (six) hours as needed for Cough. [facility] ipratropium 0.02 % nebulizer solution 01-19 00:00: 00 Yes [id number] .5mg Inhale 2.5 mL every 6 (six) hours as needed for Wheezing, Shortness of Breath, Bronchospa sm or Chest tightness. [facility] guaiFENesin 100 mg/5 mL solution 01-19 00:00: 00 Yes [id number] 200mg Take 10 mL by mouth every 6 (six) hours as needed for Cough. [facility] ipratropium 0.02 % nebulizer solution 01-19 00:00: 00 Yes [id number] .5mg Inhale 2.5 mL every 6 (six) hours as needed for Wheezing, Shortness of Breath, Bronchospa sm or Chest tightness. [facility] guaiFENesin 100 mg/5 mL solution 01-19 00:00: 00 Yes [id number] 200mg Take 10 mL by mouth every 6 (six) hours as needed for Cough. [facility] ipratropium 0.02 % nebulizer solution 01-19 00:00: 00 02-17 00:00 :00 No [id number] .5mg Inhale 2.5 mL every 6 (six) hours as needed for Wheezing, Shortness of Breath, Bronchospa sm or Chest tightness. [facility] levoFLOXaci n 500 mg tablet 01-19 00:00: 00 01-24 04:59 :00 No [id number] 500mg Take 1 tablet by mouth in the morning for 4 days. [facility] levoFLOXaci n 500 mg tablet 01-19 00:00: 00 01-24 04:59 :00 No [id number] 500mg Take 1 tablet by mouth in the morning for 4 days. [facility] levoFLOXaci n 500 mg tablet 01-19 00:00: 00 01-24 04:59 :00 No [id number] 500mg Take 1 tablet by mouth in the morning for 4 days. [facility] levoFLOXaci n 500 mg tablet 01-19 00:00: 00 01-24 04:59 :00 No [id number] 500mg Take 1 tablet by mouth in the morning for 4 days. [facility] levoFLOXaci n 500 mg tablet 01-19 00:00: 00 01-24 04:59 :00 No [id number] 500mg Take 1 tablet by mouth in the morning for 4 days. [facility] levoFLOXaci n 500 mg tablet 01-19 00:00: 00 01-24 04:59 :00 No [id number] 500mg Take 1 tablet by mouth in the morning for 4 days. [facility] levalbutero l (XOPENEX) nebulizer solution 1.25 mg 01-17 13:00: 00 01-17 11:56 :39 No 1.25mg 1.25 mg, Inhalation , TID, First dose on Tue01/17/23 at 0800, Until Discontinu ed, Routine [facility] methylpredn isolone sod succ (SOLU-MEDRO L) injection 125 mg 01-17 12:00: 00 01-17 11:11 :00 No 125mg 125 mg, Intravenou s, ONCE, 1 dose, On Tue01/17/23 at 0700, 2 mL [facility] ipratropium (ATROVENT) 0.02 % nebulizer solution 0.5 mg 01-17 11:45: 00 01-17 11:42 :00 No .5mg 0.5 mg, Inhalation , ONCE, 1 dose, On Tue01/17/23 at 0645, MICHAEL [facility] albuterol 90 mcg/actuati on inhaler 01-17 00:00: 00 Yes [id number] 2{puff} Inhale 2 Puffs every 4 (four) hours as needed for Wheezing or Shortness of Breath. [facility] albuterol 2.5 mg /3 mL (0.083 %) nebulizer solution 01-17 00:00: 00 Yes [id number] 2.5mg Inhale 3 mL every 4 (four) hours. May also nebulize one extra every 6 hours. [facility] predniSONE 50 mg tablet 01-17 00:00: 00 Yes [id number] 50mg Take 1 tablet by mouth in the morning. [facility] benzonatate 200 mg capsule 01-17 00:00: 00 Yes [id number] 200mg Take 1 capsule by mouth 3 (three) times daily as needed for Cough. [facility] ipratropium 0.02 % nebulizer solution 01-17 00:00: 00 Yes [id number] .5mg Inhale 2.5 mL every 6 (six) hours as needed for Wheezing, Shortness of Breath, Bronchospa sm or Chest tightness. [facility] albuterol 90 mcg/actuati on inhaler 01-17 00:00: 00 Yes [id number] 2{puff} Inhale 2 Puffs every 4 (four) hours as needed for Wheezing or Shortness of Breath. [facility] albuterol 2.5 mg /3 mL (0.083 %) nebulizer solution 01-17 00:00: 00 Yes [id number] 2.5mg Inhale 3 mL every 4 (four) hours. May also nebulize one extra every 6 hours. [facility] capsule 01-17 00:00: 00 Yes [id number] 200mg Take 1 capsule by mouth 3 (three) times daily as needed for Cough. [facility] albuterol 90 mcg/actuati on inhaler 01-17 00:00: 00 Yes [id number] 2{puff} Inhale 2 Puffs every 4 (four) hours as needed for Wheezing or Shortness of Breath. [facility] al[facility]ol 2.5 mg /3 mL (0.083 %) nebulizer solution 01-17 00:00: 00 Yes [id number] 2.5mg Inhale 3 mL every 4 (four) hours. May also nebulize one extra every 6 hours. [facility] ben[facility]ate 200 mg capsule 01-17 00:00: 00 Yes [id number] 200mg Take 1 capsule by mouth 3 (three) times daily as needed for Cough. [facility] al[facility]ol 90 mcg/actuati on inhaler 01-17 00:00: 00 Yes [id number] 2{puff} Inhale 2 Puffs every 4 (four) hours as needed for Wheezing or Shortness of Breath. [facility] albuterol 2.5 mg /3 mL (0.083 %) nebulizer solution 01-17 00:00: 00 Yes [id number] 2.5mg Inhale 3 mL every 4 (four) hours. May also nebulize one extra every 6 hours. [facility] benzonatate 200 mg capsule 01-17 00:00: 00 Yes [id number] 200mg Take 1 capsule by mouth 3 (three) times daily as needed for Cough. [facility] al[facility]ol 90 mcg/actuati on inhaler 01-17 00:00: 00 Yes [id number] 2{puff} Inhale 2 Puffs every 4 (four) hours as needed for Wheezing or Shortness of Breath. [facility] al[facility]ol 2.5 mg /3 mL (0.083 %) nebulizer solution 01-17 00:00: 00 Yes [id number] 2.5mg Inhale 3 mL every 4 (four) hours. May also nebulize one extra every 6 hours. [facility] benzonatate 200 mg capsule 01-17 00:00: 00 Yes [id number] 200mg Take 1 capsule by mouth 3 (three) times daily as needed for Cough. [facility] albuterol 90 mcg/actuati on inhaler 01-17 00:00: 00 Yes [id number] 2{puff} Inhale 2 Puffs every 4 (four) hours as needed for Wheezing or Shortness of Breath. [facility] albuterol 2.5 mg /3 mL (0.083 %) nebulizer solution 01-17 00:00: 00 Yes [id number] 2.5mg Inhale 3 mL every 4 (four) hours. May also nebulize one extra every 6 hours. [facility] benzonatate 200 mg capsule 01-17 00:00: 00 Yes [id number] 200mg Take 1 capsule by mouth 3 (three) times daily as needed for Cough. [facility] albuterol 90 mcg/actuati on inhaler 01-17 00:00: 00 Yes [id number] 2{puff} Inhale 2 Puffs every 4 (four) hours as needed for Wheezing or Shortness of Breath. [facility] albuterol 2.5 mg /3 mL (0.083 %) nebulizer solution 01-17 00:00: 00 Yes [id number] 2.5mg Inhale 3 mL every 4 (four) hours. May also nebulize one extra every 6 hours. [facility] benzonatate 200 mg capsule 01-17 00:00: 00 Yes [id number] 200mg Take 1 capsule by mouth 3 (three) times daily as needed for Cough. [facility] albuterol 90 mcg/actuati on inhaler 01-17 00:00: 00 Yes [id number] 2{puff} Inhale 2 Puffs every 4 (four) hours as needed for Wheezing or Shortness of Breath. [facility] albuterol 2.5 mg /3 mL (0.083 %) nebulizer solution 01-17 00:00: 00 Yes [id number] 2.5mg Inhale 3 mL every 4 (four) hours. May also nebulize one extra every 6 hours. [facility] ben[facility]ate 200 mg capsule 01-17 00:00: 00 Yes [id number] 200mg Take 1 capsule by mouth 3 (three) times daily as needed for Cough. [facility] mcg/actuati on inhaler 01-17 00:00: 00 Yes [id number] 2{puff} Inhale 2 Puffs every 4 (four) hours as needed for Wheezing or Shortness of Breath. [facility] albuterol 2.5 mg /3 mL (0.083 %) nebulizer solution 01-17 00:00: 00 Yes [id number] 2.5mg Inhale 3 mL every 4 (four) hours. May also nebulize one extra every 6 hours. [facility] benzonatate 200 mg capsule 01-17 00:00: 00 Yes [id number] 200mg Take 1 capsule by mouth 3 (three) times daily as needed for Cough. [facility] al[facility]ol 90 mcg/actuati on inhaler 01-17 00:00: 00 Yes [id number] 2{puff} Inhale 2 Puffs every 4 (four) hours as needed for Wheezing or Shortness of Breath. [facility] albuterol 2.5 mg /3 mL (0.083 %) nebulizer solution 01-17 00:00: 00 Yes [id number] 2.5mg Inhale 3 mL every 4 (four) hours. May also nebulize one extra every 6 hours. [facility] 01-17 00:00: 00 Yes [id number] 200mg Take 1 capsule by mouth 3 (three) times daily as needed for Cough. [facility] al[facility]ol [facility] mcg/actuati on inhaler 01-17 00:00: 00 Yes [id number] 2{puff} Inhale 2 Puffs every 4 (four) hours as needed for Wheezing or Shortness of Breath. [facility] 2.5 mg /3 mL (0.083 %) nebulizer solution 01-17 00:00: 00 Yes [id number] 2.5mg Inhale 3 mL every 4 (four) hours. May also nebulize one extra every 6 hours. [facility] mg capsule 01-17 00:00: 00 Yes [id number] 200mg Take 1 capsule by mouth 3 (three) times daily as needed for Cough. [facility] al[facility]ol 90 mcg/actuati on inhaler 01-17 00:00: 00 Yes [id number] 2{puff} Inhale 2 Puffs every 4 (four) hours as needed for Wheezing or Shortness of Breath. [facility] albuterol 2.5 mg /3 mL (0.083 %) nebulizer solution 01-17 00:00: 00 Yes [id number] 2.5mg Inhale 3 mL every 4 (four) hours. May also nebulize one extra every 6 hours. [facility] benzonatate 200 mg capsule 01-17 00:00: 00 Yes [id number] 200mg Take 1 capsule by mouth 3 (three) times daily as needed for Cough. [facility] albuterol 90 mcg/actuati on inhaler 01-17 00:00: 00 Yes [id number] 2{puff} Inhale 2 Puffs every 4 (four) hours as needed for Wheezing or Shortness of Breath. [facility] albuterol 2.5 mg /3 mL (0.083 %) nebulizer solution 01-17 00:00: 00 Yes [id number] 2.5mg Inhale 3 mL every 4 (four) hours. May also nebulize one extra every 6 hours. [facility] mg capsule 01-17 00:00: 00 Yes [id number] 200mg Take 1 capsule by mouth 3 (three) times daily as needed for Cough. [facility] albuterol 90 mcg/actuati on inhaler 01-17 00:00: 00 Yes [id number] 2{puff} Inhale 2 Puffs every 4 (four) hours as needed for Wheezing or Shortness of Breath. [facility]ol 2.5 mg /3 mL (0.083 %) nebulizer solution 01-17 00:00: 00 Yes [id number] 2.5mg Inhale 3 mL every 4 (four) hours. May also nebulize one extra every 6 hours. [facility] mg capsule 01-17 00:00: 00 Yes [id number] 200mg Take 1 capsule by mouth 3 (three) times daily as needed for Cough. [facility] albuterol 90 mcg/actuati on inhaler 01-17 00:00: 00 Yes [id number] 2{puff} Inhale 2 Puffs every 4 (four) hours as needed for Wheezing or Shortness of Breath. [facility] albuterol 2.5 mg /3 mL (0.083 %) nebulizer solution 01-17 00:00: 00 Yes [id number] 2.5mg Inhale 3 mL every 4 (four) hours. May also nebulize one extra every 6 hours. [facility] benzonatate 200 mg capsule 01-17 00:00: 00 Yes [id number] 200mg Take 1 capsule by mouth 3 (three) times daily as needed for Cough. [facility] mcg/actuati on inhaler 01-17 00:00: 00 Yes [id number] 2{puff} Inhale 2 Puffs every 4 (four) hours as needed for Wheezing or Shortness of Breath. [facility] 2.5 mg /3 mL (0.083 %) nebulizer solution 01-17 00:00: 00 Yes [id number] 2.5mg Inhale 3 mL every 4 (four) hours. May also nebulize one extra every 6 hours. [facility] benzonatate 200 mg capsule 01-17 00:00: 00 Yes [id number] 200mg Take 1 capsule by mouth 3 (three) times daily as needed for Cough. [facility] albuterol 90 mcg/actuati on inhaler 01-17 00:00: 00 Yes [id number] 2{puff} Inhale 2 Puffs every 4 (four) hours as needed for Wheezing or Shortness of Breath. [facility] al[facility]ol 2.5 mg /3 mL (0.083 %) nebulizer solution 01-17 00:00: 00 Yes [id number] 2.5mg Inhale 3 mL every 4 (four) hours. May also nebulize one extra every 6 hours. [facility] mg capsule 01-17 00:00: 00 Yes [id number] 200mg Take 1 capsule by mouth 3 (three) times daily as needed for Cough. [facility] al[facility]erol 2.5 mg /3 mL (0.083 %) nebulizer solution 01-17 00:00: 00 Yes [id number] 2.5mg Inhale 3 mL every 4 (four) hours. May also nebulize one extra every 6 hours. [facility] mg capsule 01-17 00:00: 00 Yes [id number] 200mg Take 1 capsule by mouth 3 (three) times daily as needed for Cough. [facility] al[facility]erol 2.5 mg /3 mL (0.083 %) nebulizer solution 01-17 00:00: 00 Yes [id number] 2.5mg Inhale 3 mL every 4 (four) hours. May also nebulize one extra every 6 hours. [facility] mg capsule 01-17 00:00: 00 Yes [id number] 200mg Take 1 capsule by mouth 3 (three) times daily as needed for Cough. [facility] albuterol 2.5 mg /3 mL (0.083 %) nebulizer solution 01-17 00:00: 00 Yes [id number] 2.5mg Inhale 3 mL every 4 (four) hours. May also nebulize one extra every 6 hours. [facility] benzonatate 200 mg capsule 01-17 00:00: 00 Yes [id number] 200mg Take 1 capsule by mouth 3 (three) times daily as needed for Cough. [facility] albuterol 2.5 mg /3 mL (0.083 %) nebulizer solution 01-17 00:00: 00 Yes [id number] 2.5mg Inhale 3 mL every 4 (four) hours. May also nebulize one extra every 6 hours. [facility] albuterol 2.5 mg /3 mL (0.083 %) nebulizer solution 01-17 00:00: 00 Yes [id number] 2.5mg Inhale 3 mL every 4 (four) hours. May also nebulize one extra every 6 hours. [facility] albuterol 2.5 mg /3 mL (0.083 %) nebulizer solution 01-17 00:00: 00 Yes [id number] 2.5mg Inhale 3 mL every 4 (four) hours. May also nebulize one extra every 6 hours. [facility] albuterol 2.5 mg /3 mL (0.083 %) nebulizer solution 01-17 00:00: 00 Yes [id number] 2.5mg Inhale 3 mL every 4 (four) hours. May also nebulize one extra every 6 hours. [facility] albuterol 2.5 mg /3 mL (0.083 %) nebulizer solution 01-17 00:00: 00 Yes [id number] 2.5mg Inhale 3 mL every 4 (four) hours. May also nebulize one extra every 6 hours. [facility] albuterol 2.5 mg /3 mL (0.083 %) nebulizer solution 01-17 00:00: 00 Yes [id number] 2.5mg Inhale 3 mL every 4 (four) hours. May also nebulize one extra every 6 hours. [facility] albuterol 2.5 mg /3 mL (0.083 %) nebulizer solution 01-17 00:00: 00 03-03 00:00 :00 No [id number] 2.5mg Inhale 3 mL every 4 (four) hours. May also nebulize one extra every 6 hours. [facility] benzonatate 200 mg capsule 01-17 00:00: 00 02-17 00:00 :00 No [id number] 200mg Take 1 capsule by mouth 3 (three) times daily as needed for Cough. [facility] albuterol 90 mcg/actuati on inhaler 01-17 00:00: 00 02-04 00:00 :00 No [id number] 2{puff} Inhale 2 Puffs every 4 (four) hours as needed for Wheezing or Shortness of Breath. [facility] predniSONE 50 mg tablet 01-17 00:00: 00 01-19 00:00 :00 No [id number] 50mg Take 1 tablet by mouth in the morning. [facility] ipratropium 0.02 % nebulizer solution 01-17 00:00: 00 01-19 00:00 :00 No [id number] .5mg Inhale 2.5 mL every 6 (six) hours as needed for Wheezing, Shortness of Breath, Bronchospa sm or Chest tightness. [facility] potassium chloride (KCL-20 ORAL) 01-07 14:37: 58 Yes 1{tbl} Take 1 tablet by mouth in the morning and 1 tablet in the evening. [facility] potassium chloride (KCL-20 ORAL) 01-07 14:37: 58 Yes 1{tbl} Take 1 tablet by mouth in the morning and 1 tablet in the evening. [facility] potassium chloride (KCL-20 ORAL) 01-07 14:37: 58 Yes 1{tbl} Take 1 tablet by mouth in the morning and 1 tablet in the evening. [facility] potassium chloride (KCL-20 ORAL) 01-07 14:37: 58 Yes 1{tbl} Take 1 tablet by mouth in the morning and 1 tablet in the evening. [facility] busPIRone 10 mg tablet 3-0 01-07 14:36: 57 Yes 10mg Take 1 tablet by mouth in the morning and 1 tablet in the evening. [facility] rivaroxaban 15 mg tablet 2022-0 01-07 14:36: 57 Yes 15mg Take 1 tablet by mouth in the morning. [facility] ASPIRIN ORAL 3-0 01-07 14:36: 57 Yes 81mg Take 81 mg by mouth in the morning. tablet [facility] benazepriL 10 mg tablet 2022-0 01-07 14:36: 57 Yes 10mg Take 1 tablet by mouth in the morning. [facility] busPIRone 10 mg tablet 2022-0 01-07 14:36: 57 Yes 10mg Take 1 tablet by mouth in the morning and 1 tablet in the evening. [facility] rivaroxaban 15 mg tablet 2022-0 01-07 14:36: 57 Yes 15mg Take 1 tablet by mouth in the morning. [facility] ASPIRIN ORAL 2022-0 01-07 14:36: 57 Yes 81mg Take 81 mg by mouth in the morning. tablet [facility] benazepriL 10 mg tablet 2022-0 01-07 14:36: 57 Yes 10mg Take 1 tablet by mouth in the morning. [facility] busPIRone 10 mg tablet 2022-0 01-07 14:36: 57 Yes 10mg Take 1 tablet by mouth in the morning and 1 tablet in the evening. [facility] rivaroxaban 15 mg tablet 2022-0 01-07 14:36: 57 Yes 15mg Take 1 tablet by mouth in the morning. [facility] ASPIRIN ORAL 3-0 01-07 14:36: 57 Yes 81mg Take 81 mg by mouth in the morning. tablet [facility] benazepriL 10 mg tablet 3-0 01-07 14:36: 57 Yes 10mg Take 1 tablet by mouth in the morning. [facility] busPIRone 10 mg tablet 3-0 4-21 14:36: 57 Yes 10mg Take 1 tablet by mouth in the morning and 1 tablet in the evening. [facility] rivaroxaban 15 mg tablet 2022-0 01-07 14:36: 57 Yes 15mg Take 1 tablet by mouth in the morning. [facility] ASPIRIN ORAL 3-0 01-07 14:36: 57 Yes 81mg Take 81 mg by mouth in the morning. tablet [facility] benazepriL 10 mg tablet 2022-0 01-07 14:36: 57 Yes 10mg Take 1 tablet by mouth in the morning. [facility] donepeziL 5 mg tablet 2022-0 01-07 00:00: 00 Yes 5mg Take 1 tablet by mouth in the morning. [facility] memantine 5 mg tablet 2022-0 01-07 00:00: 00 Yes 5mg Take 1 tablet by mouth in the morning. [facility] donepeziL 5 mg tablet 3-0 21 00:00: 00 Yes 5mg Take 1 tablet by mouth in the morning. [facility] memantine 5 mg tablet 3-0 21 00:00: 00 Yes 5mg Take 1 tablet by mouth in the morning. [facility] donepeziL 5 mg tablet 3-0 21 00:00: 00 Yes 5mg Take 1 tablet by mouth in the morning. [facility] memantine 5 mg tablet 3-0 21 00:00: 00 Yes 5mg Take 1 tablet by mouth in the morning. [facility] donepeziL 5 mg tablet 3-0 21 00:00: 00 Yes 5mg Take 1 tablet by mouth in the morning. [facility] memantine 5 mg tablet 3-0 21 00:00: 00 Yes 5mg Take 1 tablet by mouth in the morning. [facility] donepeziL 5 mg tablet 3-0 21 00:00: 00 Yes 5mg Take 1 tablet by mouth in the morning. [facility] memantine 5 mg tablet 3-0 4-21 00:00: 00 Yes 5mg Take 1 tablet by mouth in the morning. [facility] donepeziL 5 mg tablet 2023-0 4-21 00:00: 00 Yes 5mg Take 1 tablet by mouth in the morning. [facility] memantine 5 mg tablet 2023-0 4-21 00:00: 00 Yes 5mg Take 1 tablet by mouth in the morning. [facility] donepeziL 5 mg tablet 2023-0 4-21 00:00: 00 Yes 5mg Take 1 tablet by mouth in the morning. [facility] memantine 5 mg tablet 2023-0 4-21 00:00: 00 Yes 5mg Take 1 tablet by mouth in the morning. [facility] donepeziL 5 mg tablet 3-0 4-21 00:00: 00 Yes 5mg Take 1 tablet by mouth in the morning. [facility] memantine 5 mg tablet 2023-0 4-21 00:00: 00 Yes 5mg Take 1 tablet by mouth in the morning. [facility] donepeziL 5 mg tablet 2023-0 4-21 00:00: 00 Yes 5mg Take 1 tablet by mouth in the morning. [facility] memantine 5 mg tablet 2023-0 4-21 00:00: 00 Yes 5mg Take 1 tablet by mouth in the morning. [facility] donepeziL 5 mg tablet 2023-0 4-21 00:00: 00 Yes 5mg Take 1 tablet by mouth in the morning. [facility] memantine 5 mg tablet 2023-0 4-21 00:00: 00 Yes 5mg Take 1 tablet by mouth in the morning. [facility] donepeziL 5 mg tablet 2023-0 4-21 00:00: 00 Yes 5mg Take 1 tablet by mouth in the morning. [facility] memantine 5 mg tablet 2023-0 4-21 00:00: 00 Yes 5mg Take 1 tablet by mouth in the morning. [facility] donepeziL 5 mg tablet 2023-0 4-21 00:00: 00 Yes 5mg Take 1 tablet by mouth in the morning. [facility] memantine 5 mg tablet 2023-0 4-21 00:00: 00 Yes 5mg Take 1 tablet by mouth in the morning. [facility] donepeziL 5 mg tablet 2023-0 4-21 00:00: 00 Yes 5mg Take 1 tablet by mouth in the morning. [facility] memantine 5 mg tablet 2023-0 4-21 00:00: 00 Yes 5mg Take 1 tablet by mouth in the morning. [facility] donepeziL 5 mg tablet 2023-0 4-21 00:00: 00 Yes 5mg Take 1 tablet by mouth in the morning. [facility] memantine 5 mg tablet 3-0 4-21 00:00: 00 Yes 5mg Take 1 tablet by mouth in the morning. [facility] donepeziL 5 mg tablet 3-0 4-21 00:00: 00 Yes 5mg Take 1 tablet by mouth in the morning. [facility] memantine 5 mg tablet 2023-0 4-21 00:00: 00 Yes 5mg Take 1 tablet by mouth in the morning. [facility] donepeziL 5 mg tablet 2023-0 4-21 00:00: 00 Yes 5mg Take 1 tablet by mouth in the morning. [facility] memantine 5 mg tablet 3-0 4-21 00:00: 00 Yes 5mg Take 1 tablet by mouth in the morning. [facility] donepeziL 5 mg tablet 3-0 4-21 00:00: 00 Yes 5mg Take 1 tablet by mouth in the morning. [facility] memantine 5 mg tablet 2023-0 4-21 00:00: 00 Yes 5mg Take 1 tablet by mouth in the morning. [facility] donepeziL 5 mg tablet 2023-0 4-21 00:00: 00 Yes 5mg Take 1 tablet by mouth in the morning. [facility] memantine 5 mg tablet 2023-0 4-21 00:00: 00 Yes 5mg Take 1 tablet by mouth in the morning. [facility] donepeziL 5 mg tablet 2023-0 4-21 00:00: 00 Yes 5mg Take 1 tablet by mouth in the morning. [facility] memantine 5 mg tablet 2023-0 4-21 00:00: 00 Yes 5mg Take 1 tablet by mouth in the morning. [facility] donepeziL 5 mg tablet 2023-0 4-21 00:00: 00 Yes 5mg Take 1 tablet by mouth in the morning. [facility] memantine 5 mg tablet 2023-0 4-21 00:00: 00 Yes 5mg Take 1 tablet by mouth in the morning. [facility] donepeziL 5 mg tablet 2023-0 4-21 00:00: 00 Yes 5mg Take 1 tablet by mouth in the morning. [facility] memantine 5 mg tablet 3-0 4-21 00:00: 00 Yes 5mg Take 1 tablet by mouth in the morning. [facility] donepeziL 5 mg tablet 2023-0 4-21 00:00: 00 Yes 5mg Take 1 tablet by mouth in the morning. [facility] memantine 5 mg tablet 2023-0 4-21 00:00: 00 Yes 5mg Take 1 tablet by mouth in the morning. [facility] donepeziL 5 mg tablet 2023-0 4-21 00:00: 00 Yes 5mg Take 1 tablet by mouth in the morning. [facility] memantine 5 mg tablet 3-0 4-21 00:00: 00 Yes 5mg Take 1 tablet by mouth in the morning. [facility] donepeziL 5 mg tablet 2023-0 4-21 00:00: 00 Yes 5mg Take 1 tablet by mouth in the morning. [facility] memantine 5 mg tablet 2023-0 4-21 00:00: 00 Yes 5mg Take 1 tablet by mouth in the morning. [facility] donepeziL 5 mg tablet 2023-0 4-21 00:00: 00 Yes 5mg Take 1 tablet by mouth in the morning. [facility] memantine 5 mg tablet 2023-0 4-21 00:00: 00 Yes 5mg Take 1 tablet by mouth in the morning. [facility] donepeziL 5 mg tablet 2023-0 4-21 00:00: 00 Yes 5mg Take 1 tablet by mouth in the morning. [facility] memantine 5 mg tablet 3-0 4-21 00:00: 00 Yes 5mg Take 1 tablet by mouth in the morning. [facility] donepeziL 5 mg tablet 3-0 4-21 00:00: 00 Yes 5mg Take 1 tablet by mouth in the morning. [facility] memantine 5 mg tablet 3-0 4-21 00:00: 00 Yes 5mg Take 1 tablet by mouth in the morning. [facility] donepeziL 5 mg tablet 3-0 4-21 00:00: 00 03-01 00:00 :00 No 5mg Take 1 tablet by mouth in the morning. [facility] memantine 5 mg tablet 3-0 4-21 00:00: 00 03-01 00:00 :00 No 5mg Take 1 tablet by mouth in the morning. [facility] donepeziL 5 mg tablet 3-0 4-21 00:00: 00 03-01 00:00 :00 No 5mg Take 1 tablet by mouth in the morning. [facility] memantine 5 mg tablet 2022-0 4-21 00:00: 00 03-01 00:00 :00 No 5mg Take 1 tablet by mouth in the morning. [facility] tamsulosin 0.4 mg 24 hr capsule 3-0 3-27 00:00: 00 01-13 04:59 :00 No [id number] .4mg Take 1 capsule by mouth in the morning for 30 days. [facility] tamsulosin 0.4 mg 24 hr capsule 3-0 3-27 00:00: 00 01-13 04:59 :00 No [id number] .4mg Take 1 capsule by mouth in the morning for 30 days. [facility] tamsulosin 0.4 mg 24 hr capsule 3-0 3-27 00:00: 00 01-13 04:59 :00 No [id number] .4mg Take 1 capsule by mouth in the morning for 30 days. [facility] tamsulosin 0.4 mg 24 hr capsule 12-13 00:00: 00 01-13 04:59 :00 No [id number] .4mg Take 1 capsule by mouth in the morning for 30 days. [facility] tamsulosin 0.4 mg 24 hr capsule 12-13 00:00: 00 01-13 04:59 :00 No [id number] .4mg Take 1 capsule by mouth in the morning for 30 days. [facility] tamsulosin 0.4 mg 24 hr capsule 12-13 00:00: 00 01-13 04:59 :00 No [id number] .4mg Take 1 capsule by mouth in the morning for 30 days. [facility] donepeziL (ARICEPT) tablet 5 mg 12-12 17:30: 00 Yes 5mg 5 mg, Oral, DAILY, First dose on 12/12/22 at 1230, Until Discontinu ed, Routine [facility] memantine (NAMENDA) tablet 5 mg 12-12 17:30: 00 Yes 5mg 5 mg, Oral, DAILY, First dose on 12/12/22 at 1230, Until Discontinu ed, Routine
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 [facility] rivaroxaban (XARELTO) 15 mg tablet 12-12 14:37: 13 Yes 15mg Take 1 tablet by mouth in the morning. [facility] aspirin 81 mg chewable tablet 12-12 14:37: 13 Yes 81mg Take 81 mg by mouth in the morning. tablet [facility] busPIRone 10 mg tablet 12-12 14:37: 13 Yes 10mg Take 1 tablet by mouth in the morning and 1 tablet in the evening. [facility] rivaroxaban (XARELTO) 15 mg tablet 12-12 14:37: 13 Yes 15mg Take 1 tablet by mouth in the morning. [facility] busPIRone 10 mg tablet 12-12 14:37: 13 Yes 10mg Take 1 tablet by mouth in the morning and 1 tablet in the evening. [facility] rivaroxaban (XARELTO) 15 mg tablet 12-12 14:37: 13 Yes 15mg Take 1 tablet by mouth in the morning. [facility] aspirin 81 mg chewable tablet 12-12 14:37: 13 Yes 81mg Take 81 mg by mouth in the morning. tablet [facility] busPIRone 10 mg tablet 12-12 14:37: 13 Yes 10mg Take 1 tablet by mouth in the morning and 1 tablet in the evening. [facility] rivaroxaban (XARELTO) 15 mg tablet 12-12 14:37: 13 Yes 15mg Take 1 tablet by mouth in the morning. [facility] aspirin 81 mg chewable tablet 12-12 14:37: 13 Yes 81mg Take 81 mg by mouth in the morning. tablet [facility] tamsulosin (FLOMAX) capsule 0.4 mg 12-12 14:00: 00 Yes .4mg 0.4 mg, Oral, DAILY, First dose on 12/12/22 at 0900, Until Discontinu ed, Routine [facility] aspirin EC tablet 81 mg 12-12 14:00: 00 Yes 81mg 81 mg, Oral, DAILY, First dose on 12/12/22 at 0900, Until Discontinu ed, [facility]n isolone sod succ (SOLU-MEDRO L) injection 40 mg 12-12 14:00: 00 Yes 40mg 40 mg, Intravenou s, DAILY, First dose (after last modificati on) on 12/12/22 at 0900, Until Discontinu ed, [facility] carvediloL 25 mg tablet 12-12 11:47: 13 12-12 00:00 :00 No 25mg Take 1 tablet by mouth in the morning and 1 tablet in the evening. Take with meals. [facility] busPIRone 30 mg tablet 12-12 11:47: 13 12-12 00:00 :00 No 30mg Take 1 tablet by mouth in the morning and 1 tablet in the evening. [facility] KCL 20 mEq tablet 12-12 11:47: 13 12-12 00:00 :00 No Take by mouth 2 (two) times daily. [facility] benazepriL 10 mg tablet 12-12 11:47: 13 12-12 00:00 :00 No 10mg Take 1 tablet by mouth in the morning. [facility] hydroCHLORO thiazide 25 mg tablet 12-12 11:47: 13 12-12 00:00 :00 No 25mg Take 1 tablet by mouth in the morning. [facility] melatonin (MELATIN) tablet 6 mg 12-12 02:00: 00 Yes 6mg 6 mg, Oral, QHS, First dose on 12/11/22 at 2100, Until Discontinu ed, Routine [facility] atorvastati n (LIPITOR) tablet 40 mg 12-12 02:00: 00 Yes 40mg 40 mg, Oral, QHS, First dose on 12/11/22 at 2100, Until Discontinu ed, Routine [facility] carvediloL 3.125 mg tablet 12-12 00:00: 00 01-12 04:59 :00 No [id number] 3.125mg Take 1 tablet by mouth in the morning and 1 tablet in the evening. Take with meals. Do all this for 30 days. [facility] atorvastati n 40 mg tablet 12-12 00:00: 00 01-12 04:59 :00 No [id number] 40mg Take 1 tablet by mouth at bedtime for 30 days. [facility] donepeziL 5 mg tablet 12-12 00:00: 00 01-12 04:59 :00 No [id number] 5mg Take 1 tablet by mouth in the morning for 30 days. [facility] memantine 5 mg tablet 2022-0 3- 00:00: 00 01-12 04:59 :00 No [id number] 5mg Take 1 tablet by mouth in the morning for 30 days. [facility] carvediloL 3.125 mg tablet 2022-0 3 00:00: 00 01-12 04:59 :00 No [id number] 3.125mg Take 1 tablet by mouth in the morning and 1 tablet in the evening. Take with meals. Do all this for 30 days. [facility] atorvastati n 40 mg tablet 2022-0 12-12 00:00: 00 01-12 04:59 :00 No [id number] 40mg Take 1 tablet by mouth at bedtime for 30 days. [facility] donepeziL 5 mg tablet 2022-0 12-12 00:00: 00 01-12 04:59 :00 No [id number] 5mg Take 1 tablet by mouth in the morning for 30 days. [facility] memantine 5 mg tablet 2022-0 12-12 00:00: 00 01-12 04:59 :00 No [id number] 5mg Take 1 tablet by mouth in the morning for 30 days. [facility] carvediloL 3.125 mg tablet 2022-0 12-12 00:00: 00 01-12 04:59 :00 No [id number] 3.125mg Take 1 tablet by mouth in the morning and 1 tablet in the evening. Take with meals. Do all this for 30 days. [facility] atorvastati n 40 mg tablet 2022-0 12-12 00:00: 00 01-12 04:59 :00 No [id number] 40mg Take 1 tablet by mouth at bedtime for 30 days. [facility] donepeziL 5 mg tablet 2022-0 3- 00:00: 00 01-12 04:59 :00 No [id number] 5mg Take 1 tablet by mouth in the morning for 30 days. [facility] memantine 5 mg tablet 12-12 00:00: 00 01-12 04:59 :00 No [id number] 5mg Take 1 tablet by mouth in the morning for 30 days. [facility] carvediloL 3.125 mg tablet 12-12 00:00: 00 01-12 04:59 :00 No [id number] 3.125mg Take 1 tablet by mouth in the morning and 1 tablet in the evening. Take with meals. Do all this for 30 days. [facility] atorvastati n 40 mg tablet 12-12 00:00: 00 01-12 04:59 :00 No [id number] 40mg Take 1 tablet by mouth at bedtime for 30 days. [facility] carvediloL 3.125 mg tablet 12-12 00:00: 00 01-12 04:59 :00 No [id number] 3.125mg Take 1 tablet by mouth in the morning and 1 tablet in the evening. Take with meals. Do all this for 30 days. [facility] atorvastati n 40 mg tablet 12-12 00:00: 00 01-12 04:59 :00 No [id number] 40mg Take 1 tablet by mouth at bedtime for 30 days. [facility] carvediloL 3.125 mg tablet 12-12 00:00: 00 01-12 04:59 :00 No [id number] 3.125mg Take 1 tablet by mouth in the morning and 1 tablet in the evening. Take with meals. Do all this for 30 days. [facility] atorvastati n 40 mg tablet 12-12 00:00: 00 01-12 04:59 :00 No [id number] 40mg Take 1 tablet by mouth at bedtime for 30 days. [facility] donepeziL 5 mg tablet 12-12 00:00: 00 01-07 00:00 :00 No [id number] 5mg Take 1 tablet by mouth in the morning for 30 days. [facility] memantine 5 mg tablet 12-12 00:00: 00 01-07 00:00 :00 No [id number] 5mg Take 1 tablet by mouth in the morning for 30 days. [facility] donepeziL 5 mg tablet 12-12 00:00: 00 01-07 00:00 :00 No [id number] 5mg Take 1 tablet by mouth in the morning for 30 days. [facility] memantine 5 mg tablet 12-12 00:00: 00 01-07 00:00 :00 No [id number] 5mg Take 1 tablet by mouth in the morning for 30 days. [facility] levalbutero l (XOPENEX) nebulizer solution 1.25 mg 12-11 17:00: 00 Yes 1.25mg 1.25 mg, Inhalation , QID, First dose (after last modificati on) on 12/11/22 at 1200, Until Discontinu ed, Routine [facility] rivaroxaban (XARELTO) tablet 15 mg 12-11 14:00: 00 Yes 15mg 15 mg, Oral, DAILY, First dose on 12/11/22 at 0900, Until Discontinu ed, Routine [facility] nicotine (NICODERM) 21 mg/24 hr patch 1 Patch 12-11 13:45: 00 Yes 1{patch } 1 Patch, Topical, Administer over 24 Hours, Q24H, First dose on 12/11/22 at 0845, Until Discontinu ed, Routine [facility] ipratropium (ATROVENT) 0.02 % nebulizer solution 0.5 mg 12-11 13:00: 00 Yes .5mg 0.5 mg, Inhalation , QID, First dose on 12/11/22 at 0800, Until Discontinu ed [facility] carvediloL (COREG) tablet 3.125 mg 12-11 13:00: 00 Yes 3.125mg 3.125 mg, Oral, BID MEALS, First dose on 12/11/22 at 0800, Until Discontinu ed, Routine [facility] busPIRone (BUSPAR) tablet 10 mg 12-11 13:00: 00 Yes 10mg 10 mg, Oral, BID, First dose on Tue12/11/22 at 0800, Until Discontinu ed, Routine [facility] methylpredn isolone sod succ (SOLU-MEDRO L) injection 125 mg 12-11 05:00: 00 12-11 12:35 :32 No 125mg 125 mg, Intravenou s, Q6H, First dose on Tue12/11/22 at 0000, Until Discontinu ed, Routine [facility] NaCl 0.9% (NS) IV infusion 1,000 mL 12-11 03:30: 00 12-11 14:48 :38 No 1000mL at 100 mL/hr, IV Infusion, CONTINUOUS , Starting on Tue12/10/22 at 2230, Until Tue12/11/22 at 0948, Routine [facility] albuterol (VENTOLIN) inhaler 2 Puff 12-11 03:17: 09 Yes 2{puff} 2 Puff, Inhalation , Q4HPRN, Starting on Tue12/10/22 at 2217, Until Discontinu ed, Routine, Wheezing, Shortness of Breath [facility] ondansetron (ZOFRAN (PF)) injection 4 mg 12-11 03:05: 14 Yes 4mg 4 mg, Slow IV Push, Q6HPRN, Starting on Tue12/10/22 at 2205, Until Discontinu ed, Routine, Nausea and Vomiting (N/V) [facility] HYDROcodone -acetaminop hen (NORCO) 10-325 mg tablet 1 tablet 12-11 03:05: 00 Yes 1{tbl} 1 tablet, Oral, Q6HPRN, Starting on Tue12/10/22 at 2205, Until Discontinu ed, Routine, Pain (scale 7-10) [facility] HYDROcodone -acetaminop hen (NORCO 5) 5-325 mg tablet 1 tablet 12-11 03:04: 56 12-13 03:03 :56 No 1{tbl} 1 tablet, Oral, Q6HPRN, Starting on Tue12/10/22 at 2204, Until 12/12/22 at 2203, Routine, Pain (scale 4-6) [facility] acetaminoph en (TYLENOL) tablet 650 mg 12-11 03:04: 50 Yes 650mg 650 mg, Oral, Q6HPRN, Starting on Tue12/10/22 at 2204, Until Discontinu ed, Routine, Pain (scale 1-3) [facility] levalbutero l (XOPENEX) nebulizer solution 1.25 mg 12-11 01:00: 00 12-11 15:57 :00 No 1.25mg 1.25 mg, Inhalation , TID, First dose on Tue12/10/22 at 2000, Until Discontinu ed, Routine [facility] NaCl 0.9% (NS) bolus infusion 1,000 mL 12-11 00:15: 00 12-11 03:18 :00 No 1000mL at 999 mL/hr, 1,000 mL, IV Infusion, ONCE, 1 dose, On Tue12/10/22 at 1915, STAT [facility] ipratropium (ATROVENT) 0.02 % nebulizer solution 0.5 mg 12-10 23:48: 58 Yes .5mg 0.5 mg, Inhalation , Q4HPRN, Starting on Tue12/10/22 at 1848, Until Discontinu ed, Routine, Wheezing, Shortness of Breath [facility] NaCl 0.9% (NS) bolus infusion 500 mL 12-04 16:15: 00 12-04 15:41 :58 No 500mL at 999 mL/hr, 500 mL, IV Piggyback, ONCE, 1 dose, On Tue12/04/22 at 1115, STAT [facility] carvediloL 3.125 mg tablet 12-04 12:44: 03 Yes 3.125mg Take 1 tablet by mouth in the morning and 1 tablet in the evening. Take with meals. [facility] busPIRone 10 mg tablet 12-04 12:44: 03 Yes 10mg Take 1 tablet by mouth in the morning and 1 tablet in the evening. [facility] busPIRone 30 mg tablet 3-0 3-18 12:44: 03 Yes 30mg Take 1 tablet by mouth in the morning and 1 tablet in the evening. [facility] KCL 20 mEq tablet 3-0 3-18 12:44: 03 Yes Take by mouth 2 (two) times daily. [facility] benazepriL 10 mg tablet 3-0 3-18 12:44: 03 Yes 10mg Take 1 tablet by mouth in the morning. [facility] rivaroxaban (XARELTO) 15 mg tablet 3-0 -18 12:44: 03 Yes 15mg Take 1 tablet by mouth in the morning. [facility] carvediloL 3.125 mg tablet 3-0 3-18 12:44: 03 Yes 3.125mg Take 1 tablet by mouth in the morning and 1 tablet in the evening. Take with meals. [facility] busPIRone 10 mg tablet 3-0 -18 12:44: 03 Yes 10mg Take 1 tablet by mouth in the morning and 1 tablet in the evening. [facility] busPIRone 30 mg tablet 3-0 18 12:44: 03 Yes 30mg Take 1 tablet by mouth in the morning and 1 tablet in the evening. [facility] KCL 20 mEq tablet 3-0 18 12:44: 03 Yes Take by mouth 2 (two) times daily. [facility] benazepriL 10 mg tablet 3-0 -18 12:44: 03 Yes 10mg Take 1 tablet by mouth in the morning. [facility] rivaroxaban (XARELTO) 15 mg tablet 3-0 3-18 12:44: 03 Yes 15mg Take 1 tablet by mouth in the morning. [facility] carvediloL 3.125 mg tablet 3-0 3-18 12:44: 03 Yes 3.125mg Take 1 tablet by mouth in the morning and 1 tablet in the evening. Take with meals. [facility] busPIRone 10 mg tablet 2023-0 3-18 12:44: 03 Yes 10mg Take 1 tablet by mouth in the morning and 1 tablet in the evening. [facility] busPIRone 30 mg tablet 12-04 12:44: 03 Yes 30mg Take 1 tablet by mouth in the morning and 1 tablet in the evening. [facility] KCL 20 mEq tablet 12-04 12:44: 03 Yes Take by mouth 2 (two) times daily. [facility] benazepriL 10 mg tablet 12-04 12:44: 03 Yes 10mg Take 1 tablet by mouth in the morning. [facility] rivaroxaban (XARELTO) 15 mg tablet 12-04 12:44: 03 Yes 15mg Take 1 tablet by mouth in the morning. [facility] carvediloL 3.125 mg tablet 12-04 12:44: 03 Yes 3.125mg Take 1 tablet by mouth in the morning and 1 tablet in the evening. Take with meals. [facility] busPIRone 10 mg tablet 12-04 12:44: 03 Yes 10mg Take 1 tablet by mouth in the morning and 1 tablet in the evening. [facility] busPIRone 30 mg tablet 12-04 12:44: 03 Yes 30mg Take 1 tablet by mouth in the morning and 1 tablet in the evening. [facility] KCL 20 mEq tablet 12-04 12:44: 03 Yes Take by mouth 2 (two) times daily. [facility] benazepriL 10 mg tablet 12-04 12:44: 03 Yes 10mg Take 1 tablet by mouth in the morning. [facility] rivaroxaban (XARELTO) 15 mg tablet 12-04 12:44: 03 Yes 15mg Take 1 tablet by mouth in the morning. [facility] albuterol 90 mcg/actuati on inhaler 12-04 00:00: 00 Yes [id number] 2{puff} Inhale 2 Puffs every 6 (six) hours as needed for Wheezing or Shortness of Breath. [facility] albuterol 90 mcg/actuati on inhaler 318 00:00: 00 Yes [id number] 2{puff} Inhale 2 Puffs every 6 (six) hours as needed for Wheezing or Shortness of Breath. [facility] albuterol 90 mcg/actuati on inhaler 3 00:00: 00 Yes [id number] 2{puff} Inhale 2 Puffs every 6 (six) hours as needed for Wheezing or Shortness of Breath. [facility] albuterol 90 mcg/actuati on inhaler 3 00:00: 00 Yes [id number] 2{puff} Inhale 2 Puffs every 6 (six) hours as needed for Wheezing or Shortness of Breath. [facility] albuterol 90 mcg/actuati on inhaler 3 00:00: 00 Yes [id number] 2{puff} Inhale 2 Puffs every 6 (six) hours as needed for Wheezing or Shortness of Breath. [facility] albuterol 90 mcg/actuati on inhaler 3 00:00: 00 Yes [id number] 2{puff} Inhale 2 Puffs every 6 (six) hours as needed for Wheezing or Shortness of Breath. [facility] albuterol 90 mcg/actuati on inhaler 3 00:00: 00 Yes [id number] 2{puff} Inhale 2 Puffs every 6 (six) hours as needed for Wheezing or Shortness of Breath. [facility] albuterol 90 mcg/actuati on inhaler 318 00:00: 00 Yes [id number] 2{puff} Inhale 2 Puffs every 6 (six) hours as needed for Wheezing or Shortness of Breath. [facility] albuterol 90 mcg/actuati on inhaler 318 00:00: 00 Yes [id number] 2{puff} Inhale 2 Puffs every 6 (six) hours as needed for Wheezing or Shortness of Breath. [facility] albuterol 90 mcg/actuati on inhaler 318 00:00: 00 Yes [id number] 2{puff} Inhale 2 Puffs every 6 (six) hours as needed for Wheezing or Shortness of Breath. [facility] albuterol 90 mcg/actuati on inhaler 318 00:00: 00 Yes [id number] 2{puff} Inhale 2 Puffs every 6 (six) hours as needed for Wheezing or Shortness of Breath. [facility] albuterol 90 mcg/actuati on inhaler 18 00:00: 00 Yes [id number] 2{puff} Inhale 2 Puffs every 6 (six) hours as needed for Wheezing or Shortness of Breath. [facility] albuterol 90 mcg/actuati on inhaler 18 00:00: 00 01-19 00:00 :00 No [id number] 2{puff} Inhale 2 Puffs every 6 (six) hours as needed for Wheezing or Shortness of Breath. [facility] tiotropium 18 mcg inhalation 0 318 00:00: 00 01-04 04:59 :00 No [id number] 18ug Inhale 1 capsule in the morning for 30 days. [facility] tiotropium 18 mcg inhalation 2022-0 318 00:00: 00 01-04 04:59 :00 No [id number] 18ug Inhale 1 capsule in the morning for 30 days. [facility] tiotropium 18 mcg inhalation 2022-0 3-18 00:00: 00 01-04 04:59 :00 No [id number] 18ug Inhale 1 capsule in the morning for 30 days. [facility] tiotropium 18 mcg inhalation 2022-0 3-18 00:00: 00 01-04 04:59 :00 No [id number] 18ug Inhale 1 capsule in the morning for 30 days. [facility] tiotropium 18 mcg inhalation 2022-0 3-18 00:00: 00 01-04 04:59 :00 No [id number] 18ug Inhale 1 capsule in the morning for 30 days. [facility] tiotropium 18 mcg inhalation 2022-0 3-18 00:00: 00 01-04 04:59 :00 No [id number] 18ug Inhale 1 capsule in the morning for 30 days. [facility] tiotropium 18 mcg inhalation 2022-0 3-18 00:00: 00 01-04 04:59 :00 No [id number] 18ug Inhale 1 capsule in the morning for 30 days. [facility] tiotropium 18 mcg inhalation 2022-0 3-18 00:00: 00 01-04 04:59 :00 No [id number] 18ug Inhale 1 capsule in the morning for 30 days. [facility] doxycycline hyclate 100 mg capsule 18 00:00: 00 12-10 04:59 :00 No [id number] 100mg Take 1 capsule by mouth every 12 (twelve) hours for 5 days. [facility] predniSONE 20 mg tablet 18 00:00: 00 12-10 04:59 :00 No [id number] 40mg Take 2 tablets by mouth in the morning for 5 days. [facility] doxycycline hyclate 100 mg capsule 18 00:00: 00 12-10 04:59 :00 No [id number] 100mg Take 1 capsule by mouth every 12 (twelve) hours for 5 days. [facility] predniSONE 20 mg tablet 18 00:00: 00 12-10 04:59 :00 No [id number] 40mg Take 2 tablets by mouth in the morning for 5 days. [facility] rivaroxaban (XARELTO) tablet 15 mg 12-03 17:15: 00 Yes 15mg 15 mg, Oral, DAILY, First dose (after last modificati on) on Tue12/03/22 at 1215, Until Discontinu ed, Routine [facility] enoxaparin (LOVENOX) injection 40 mg 16 22:00: 00 12-03 16:06 :59 No 40mg 40 mg, Subcutaneo us, DAILY, First dose on Tue12/02/22 at 1700, Until Discontinu ed, Routine [facility] methylPREDN ISolone sod succ (SOLU-MEDRO L (PF)) injection 40 mg 12-02 19:00: 00 Yes 40mg 40 mg, Intravenou s, Q8H, First dose on Tue12/02/22 at 1400, Until Discontinu ed, 1 mL [facility] codeine-gua ifenesin (ROBITUSSIN AC) 10-100 mg/5 mL oral solution 5 mL 12-02 16:25: 07 Yes 5mL 5 mL, Oral, Q6HPRN, Starting on Tue12/02/22 at 1125, Until Discontinu ed, Routine, Cough [facility] levalbutero l (XOPENEX) nebulizer solution 1.25 mg 12-02 13:00: 00 Yes 1.25mg 1.25 mg, Inhalation , Q4H, First dose on Tue12/02/22 at 0800, Until Discontinu ed, Routine [facility] ipratropium (ATROVENT) 0.02 % nebulizer solution 0.5 mg 12-02 13:00: 00 Yes .5mg 0.5 mg, Inhalation , Q4H, First dose on Tue12/02/22 at 0800, Until Discontinu ed, Routine [facility] doxycycline hyclate (Vibramycin ) capsule 100 mg 12-02 11:45: 00 12-07 11:44 :00 No 100mg 100 mg, Oral, Q12H ABX, 10 doses, First dose on Tue12/02/22 at 0645, Last dose on Tue12/06/22 at 1845, MICHAEL
Re ason for Anti-Infec tive: Empiric Therapy for Suspected Infection< br>Empiric Therapy Site: Respirator y
Durat ion of therapy: 5 days [facility] NaCl 0.9% (NS) IV infusion 1,000 mL 12-02 11:45: 00 12-02 14:24 :54 No 1000mL at 75 mL/hr, IV Infusion, CONTINUOUS , Starting on Tue12/02/22 at 0645, Until Tue12/02/22 at 0924, Routine [facility] famotidine (PEPCID AC) tablet 20 mg 12-02 11:30: 03 Yes 20mg 20 mg, Oral, BIDPRN, Starting on Tue12/02/22 at 0630, Until Discontinu ed, Routine, Indigestio n, [facility] ondansetron (ZOFRAN (PF)) injection 4 mg 12-02 11:30: 03 Yes 4mg 4 mg, Slow IV Push, Q6HPRN, Starting on Tue12/02/22 at 0630, Until Discontinu ed, Routine, Nausea and Vomiting (N/V) [facility] bisacodyL (DULCOLAX) tablet 10 mg 12-02 11:30: 03 Yes 10mg 10 mg, Oral, QDAILYPRN, Starting on Tue12/02/22 at 0630, Until Discontinu ed, Routine, Constipati on [facility] acetaminoph en (TYLENOL) tablet 650 mg 12-02 11:30: 03 Yes 650mg 650 mg, Oral, Q6HPRN, Starting on Tue12/02/22 at 0630, Until Discontinu ed, Routine, Pain (scale 1-3) [facility] methylpredn isolone sod succ (SOLU-MEDRO L) injection 125 mg 12-02 06:15: 00 12-02 05:27 :00 No 125mg 125 mg, Intravenou s, ONCE, 1 dose, On Tue12/02/22 at 0115, 2 mL [facility] ipratropium -albuteroL (DUONEB) 0.5 mg-3 mg(2.5 mg base)/3 mL nebulizer solution 6 mL 12-02 06:15: 00 12-02 05:33 :00 No 6mL 6 mL, Inhalation , ONCE, 1 dose, On Tue12/02/22 at 0115, Routine [facility] levalbutero l (XOPENEX) nebulizer solution 0.63 mg 12-01 13:15: 00 12-01 12:38 :00 No .63mg 0.63 mg, Inhalation , ONCE, 1 dose, On Tue12/01/22 at 0815, Routine [facility] ipratropium (ATROVENT) 0.02 % nebulizer solution 0.5 mg 12-01 12:30: 00 12-01 12:38 :00 No .5mg 0.5 mg, Inhalation , ONCE, 1 dose, On Tue12/01/22 at 0730, MICHAEL [facility] levalbutero l (XOPENEX) nebulizer solution 1.25 mg 12-01 11:15: 00 12-01 10:38 :00 No 1.25mg 1.25 mg, Inhalation , ONCE, 1 dose, On Tue12/01/22 at 0615, Routine [facility] ipratropium (ATROVENT) 0.02 % nebulizer solution 0.5 mg 12-01 10:30: 00 12-01 10:38 :00 No .5mg 0.5 mg, Inhalation , ONCE, 1 dose, On Tue12/01/22 at 0530, [facility] methylPREDN ISolone sod succ (SOLU-MEDRO L (PF)) injection 40 mg 12-01 10:30: 00 12-01 10:35 :00 No 40mg 40 mg, Intravenou s, ONCE, 1 dose, On Tue12/01/22 at 0530, [facility] Nebulizer & Compressor For Neb Kami 12-01 00:00: 00 Yes [id number] Use as directed [facility] albuterol 90 mcg/actuati on inhaler 12-01 00:00: 00 Yes [id number] 2{puff} Inhale 2 Puffs every 4 (four) hours as needed for Wheezing or Shortness of Breath. [facility] Nebulizer & Compressor For Neb Kami 3-0 3-15 00:00: 00 Yes [id number] Use as directed [facility] albuterol 90 mcg/actuati on inhaler 2022-0 3-15 00:00: 00 Yes [id number] 2{puff} Inhale 2 Puffs every 4 (four) hours as needed for Wheezing or Shortness of Breath. [facility] Nebulizer & Compressor For Neb Kami 2022-0 3-15 00:00: 00 Yes [id number] Use as directed [facility] albuterol 90 mcg/actuati on inhaler 2022-0 3-15 00:00: 00 Yes [id number] 2{puff} Inhale 2 Puffs every 4 (four) hours as needed for Wheezing or Shortness of Breath. [facility] Nebulizer & Compressor For Neb Kami 2022-0 3-15 00:00: 00 Yes [id number] Use as directed [facility] Nebulizer & Compressor For Neb Kami 2022-0 3-15 00:00: 00 Yes [id number] Use as directed [facility] Nebulizer & Compressor For Neb Kami 2022-0 3-15 00:00: 00 Yes [id number] Use as directed [facility] Nebulizer & Compressor For Neb Kami 2022-0 3-15 00:00: 00 Yes [id number] Use as directed [facility] Nebulizer & Compressor For Neb Kami 2022-0 3-15 00:00: 00 Yes [id number] Use as directed [facility] Nebulizer & Compressor For Neb Kami 2022-0 3-15 00:00: 00 Yes [id number] Use as directed [facility] Nebulizer & Compressor For Neb Kami 2022-0 3-15 00:00: 00 Yes [id number] Use as directed [facility] Nebulizer & Compressor For Neb Kami 3-0 3-15 00:00: 00 Yes [id number] Use as directed [facility] Nebulizer & Compressor For Neb Kami 3-0 3-15 00:00: 00 Yes [id number] Use as directed [facility] Nebulizer & Compressor For Neb Kami 2022-0 3-15 00:00: 00 Yes [id number] Use as directed [facility] Nebulizer & Compressor For Neb Kami 2022-0 3-15 00:00: 00 Yes Use as directed [facility] Nebulizer & Compressor For Neb Kami 2022-0 3-15 00:00: 00 Yes [id number] Use as directed [facility] Nebulizer & Compressor For Neb Kami 2022-0 3-15 00:00: 00 Yes [id number] Use as directed [facility] Nebulizer & Compressor For Neb Kami 2022-0 3-15 00:00: 00 Yes [id number] Use as directed [facility] Nebulizer & Compressor For Neb Kami 2022-0 3-15 00:00: 00 Yes [id number] Use as directed [facility] Nebulizer & Compressor For Neb Kami 2022-0 3-15 00:00: 00 Yes [id number] Use as directed [facility] Nebulizer & Compressor For Neb Kami 2022-0 3-15 00:00: 00 Yes [id number] Use as directed [facility] Nebulizer & Compressor For Neb Kami 2022-0 3-15 00:00: 00 Yes [id number] Use as directed [facility] Nebulizer & Compressor For Neb Kami 2022-0 3-15 00:00: 00 Yes [id number] Use as directed [facility] Nebulizer & Compressor For Neb Kami 2022-0 3-15 00:00: 00 Yes [id number] Use as directed [facility] Nebulizer & Compressor For Neb Kami 2022-0 3-15 00:00: 00 Yes [id number] Use as directed [facility] Nebulizer & Compressor For Neb Kami 2022-0 3-15 00:00: 00 Yes [id number] Use as directed [facility] Nebulizer & Compressor For Neb Kami 2022-0 3-15 00:00: 00 Yes [id number] Use as directed [facility] Nebulizer & Compressor For Neb Kami 2022-0 3-15 00:00: 00 Yes [id number] Use as directed [facility] Nebulizer & Compressor For Neb Kami 2022-0 3-15 00:00: 00 Yes [id number] Use as directed [facility] Nebulizer & Compressor For Neb Kami 2022-0 3-15 00:00: 00 Yes [id number] Use as directed [facility] Nebulizer & Compressor For Neb Kami 2022-0 3-15 00:00: 00 Yes [id number] Use as directed [facility] Nebulizer & Compressor For Neb Kami 2022-0 3-15 00:00: 00 Yes [id number] Use as directed [facility] Nebulizer & Compressor For Neb Kami 2022-0 3-15 00:00: 00 Yes [id number] Use as directed [facility] Nebulizer & Compressor For Neb Kami 2022-0 3-15 00:00: 00 Yes [id number] Use as directed [facility] Nebulizer & Compressor For Neb Kami 2022-0 3-15 00:00: 00 Yes [id number] Use as directed [facility] Nebulizer & Compressor For Neb Kami 2022-0 3-15 00:00: 00 Yes [id number] Use as directed [facility] Nebulizer & Compressor For Neb Kami 2022-0 3-15 00:00: 00 Yes [id number] Use as directed [facility] Nebulizer & Compressor For Neb Kami 2022-0 3-15 00:00: 00 Yes [id number] Use as directed [facility] Nebulizer & Compressor For Neb Kami 3-0 3-15 00:00: 00 Yes [id number] Use as directed [facility] Nebulizer & Compressor For Neb Kami 3-0 3-15 00:00: 00 Yes [id number] Use as directed [facility] Nebulizer & Compressor For Neb Kami 3-0 3-15 00:00: 00 Yes [id number] Use as directed [facility] Nebulizer & Compressor For Neb Kami 2023-0 3-15 00:00: 00 Yes [id number] Use as directed [facility] Nebulizer & Compressor For Neb Kami 0 315 00:00: 00 Yes [id number] Use as directed [facility] Nebulizer & Compressor For Neb Kami 315 00:00: 00 Yes [id number] Use as directed [facility] Nebulizer & Compressor For Neb Kami 3-15 00:00: 00 Yes [id number] Use as directed [facility]/actuati on inhaler 315 00:00: 00 Yes [id number] 2{puff} Inhale 2 Puffs every 4 (four) hours as needed for Wheezing or Shortness of Breath. [facility] predniSONE 50 mg tablet 315 00:00: 00 Yes [id number] 50mg Take 1 tablet by mouth in the morning. [facility] Nebulizer & Compressor For Neb Kami 315 00:00: 00 Yes [id number] Use as directed [facility] albuterol 90 mcg/actuati on inhaler 315 00:00: 00 Yes [id number] 2{puff} Inhale 2 Puffs every 4 (four) hours as needed for Wheezing or Shortness of Breath. [facility] albuterol 90 mcg/actuati on inhaler 15 00:00: 00 12-12 00:00 :00 No [id number] 2{puff} Inhale 2 Puffs every 4 (four) hours as needed for Wheezing or Shortness of Breath. [facility] predniSONE 50 mg tablet 315 00:00: 00 12-04 00:00 :00 No [id number] 50mg Take 1 tablet by mouth in the morning. [facility] omeprazole 40 mg capsule 12 14:11: 21 11-28 00:00 :00 No 40mg Take 40 mg by mouth daily. [facility] mg tablet 11-28 14:: 11-28 00:00 :00 No 25mg Take 25 mg by mouth 2 (two) times daily with meals. [facility] busPIRone 30 mg tablet 11-28 14:: 11-28 00:00 :00 No 30mg Take 30 mg by mouth 2 (two) times daily. [facility] benazepriL 10 mg tablet 11-28 14:: 11-28 00:00 :00 No 10mg Take 10 mg by mouth daily. [facility] hydroCHLORO thiazide 25 mg tablet 11-28 14:: 11-28 00:00 :00 No 25mg Take 25 mg by mouth daily. [facility] levalbutero l (XOPENEX) nebulizer solution 0.63 mg 11-28 13:00: 00 Yes .63mg 0.63 mg, Inhalation , TID, First dose (after last modificati on) on 11/28/22 at 0800, Until Discontinu ed, [facility] ip[facility] (ATROVENT) 0.02 % nebulizer solution 0.5 mg 11-27 20:00: 00 Yes .5mg 0.5 mg, Inhalation , TID, First dose (after last modificati on) on 11/27/22 at 1400, Until Discontinu ed, [facility] nicotine (NICODERM) 21 mg/24 hr patch 1 Patch 11-27 17:30: 00 Yes 1{patch } 1 Patch, Topical, Administer over 24 Hours, Q24H, First dose on 11/27/22 at 1130, Until Discontinu ed, Routine [facility] busPIRone (BUSPAR) tablet 10 mg 11-27 16:15: 00 Yes 10mg 10 mg, Oral, TID, First dose on 11/27/22 at 1015, Until Discontinu ed, [facility] chew[facility] 81 mg 11-27 16:15: 00 Yes 81mg 81 mg, Oral, DAILY, First dose on 11/27/22 at 1015, Until Discontinu ed, Routine [facility] foLIC acid (FOLATE) tablet 1 mg 11-27 15:00: 00 Yes 1mg 1 mg, Oral, DAILY, First dose on Tue11/27/22 at 0900, Until Discontinu ed, Routine [facility] rivaroxaban (XARELTO) tablet 20 mg 11-27 15:00: 00 Yes 20mg 20 mg, Oral, DAILY, First dose on 11/27/22 at 0900, Until Discontinu ed, Routine [facility] omeprazole (PRILOSEC) capsule 40 mg 11-27 15:00: 00 Yes 40mg 40 mg, Oral, DAILY, First dose on Tue11/27/22 at 0900, Until Discontinu ed [facility] predniSONE (DELTASONE) tablet 40 mg 11-27 15:00: 00 12-02 13:59 :00 No 40mg 40 mg, Oral, DAILY, 5 doses, First dose on Tue11/27/22 at 0900, Last dose on Tue12/01/22 at 0900, Routine [facility] carvediloL (COREG) tablet 25 mg 11-27 14:00: 00 Yes 25mg 25 mg, Oral, BID MEALS, First dose on Tue11/27/22 at 0800, Until Discontinu ed, Routine [facility] levalbutero l (XOPENEX) nebulizer solution 0.31 mg 11-27 14:00: 00 11-28 12:33 :58 No .31mg 0.31 mg, Inhalation , TID, First dose on Tue11/27/22 at 0800, Until Discontinu ed, Routine [facility] ipratropium (ATROVENT) 0.02 % nebulizer solution 0.5 mg 11-27 14:00: 00 11-27 18:48 :56 No .5mg 0.5 mg, Inhalation , QID, First dose on Tue11/27/22 at 0800, Until Discontinu ed, Routine [facility] thiamine (VITAMIN B1) tablet 100 mg 11-27 08:30: 00 Yes 100mg 100 mg, Oral, DAILY, First dose (after last modificati on) on Tue11/27/22 at 0230, Until Discontinu ed, Routine [facility] LORazepam (ATIVAN) injection 1 mg 11-27 08:16: 19 Yes 1mg 1 mg, Slow IV Push, Q4HPRN, Starting on Tue11/27/22 at 0216, Until Discontinu ed, Routine, Agitation, Seizures, withdrawl [facility] levalbutero l (XOPENEX) nebulizer solution 1.25 mg 11-19 14:00: 00 Yes 1.25mg 1.25 mg, Inhalation , TID, First dose on Tue11/19/22 at 0800, Until Discontinu ed, Routine [facility] ipratropium (ATROVENT) 0.02 % nebulizer solution 0.5 mg 11-19 09:30: 00 11-19 08:47 :00 No .5mg 0.5 mg, Inhalation , ONCE, 1 dose, On Tue11/19/22 at 0330, Routine [facility] levalbutero l (XOPENEX) nebulizer solution 1.25 mg 11-19 02:00: 00 11-19 01:21 :00 No 1.25mg 1.25 mg, Inhalation , ONCE, 1 dose, On Elizabeth 11/18/22 at 2000, Routine [facility] thiamine 100 mg tablet 224 00:00: 00 12-13 04:59 :00 No [id number] 100mg Take 1 tablet by mouth in the morning for 30 days. [facility] thiamine 100 mg tablet 0 2-24 00:00: 00 12-13 04:59 :00 No [id number] 100mg Take 1 tablet by mouth in the morning for 30 days. [facility] thiamine 100 mg tablet 0 2-24 00:00: 00 12-13 04:59 :00 No [id number] 100mg Take 1 tablet by mouth in the morning for 30 days. [facility] thiamine 100 mg tablet 0 224 00:00: 00 12-13 04:59 :00 No [id number] 100mg Take 1 tablet by mouth in the morning for 30 days. [facility] thiamine 100 mg tablet 0 24 00:00: 00 12-13 04:59 :00 No [id number] 100mg Take 1 tablet by mouth in the morning for 30 days. [facility] thiamine 100 mg tablet 0 24 00:00: 00 11-28 00:00 :00 No [id number] 100mg Take 1 tablet by mouth in the morning for 30 days. [facility] thiamine (VITAMIN B1) tablet 100 mg 11-11 15:00: 00 Yes 100mg 100 mg, Oral, DAILY, First dose on Tue11/11/22 at 0900, Until Discontinu ed, Routine [facility] omeprazole 40 mg capsule 11-11 13:41: 29 Yes 40mg Take 40 mg by mouth daily. [facility] carvediloL 25 mg tablet 11-11 13:41: 29 Yes 25mg Take 25 mg by mouth 2 (two) times daily with meals. [facility] busPIRone 30 mg tablet 11-11 13:41: 29 Yes 30mg Take 30 mg by mouth 2 (two) times daily. [facility] benazepriL 10 mg tablet 11-11 13:41: 29 Yes 10mg Take 10 mg by mouth daily. [facility] hydroCHLORO thiazide 25 mg tablet 11-11 13:41: 29 Yes 25mg Take 25 mg by mouth daily. [facility] omeprazole 40 mg capsule 11-11 13:41: 29 Yes 40mg Take 40 mg by mouth daily. [facility] carvediloL 25 mg tablet 11-11 13:41: 29 Yes 25mg Take 25 mg by mouth 2 (two) times daily with meals. [facility] busPIRone 30 mg tablet 11-11 13:41: 29 Yes 30mg Take 30 mg by mouth 2 (two) times daily. [facility] benazepriL 10 mg tablet 11-11 13:41: 29 Yes 10mg Take 10 mg by mouth daily. [facility] hydroCHLORO thiazide 25 mg tablet 11-11 13:41: 29 Yes 25mg Take 25 mg by mouth daily. [facility] omeprazole 40 mg capsule 11-11 13:41: 29 Yes 40mg Take 40 mg by mouth daily. [facility] carvediloL 25 mg tablet 11-11 13:41: 29 Yes 25mg Take 25 mg by mouth 2 (two) times daily with meals. [facility] busPIRone 30 mg tablet 11-11 13:41: 29 Yes 30mg Take 30 mg by mouth 2 (two) times daily. [facility] benazepriL 10 mg tablet 11-11 13:41: 29 Yes 10mg Take 10 mg by mouth daily. [facility] hydroCHLORO thiazide 25 mg tablet 11-11 13:41: 29 Yes 25mg Take 25 mg by mouth daily. [facility] omeprazole 40 mg capsule 11-11 13:41: 29 Yes 40mg Take 40 mg by mouth daily. [facility] carvediloL 25 mg tablet 11-11 13:41: 29 Yes 25mg Take 25 mg by mouth 2 (two) times daily with meals. [facility] busPIRone 30 mg tablet 11-11 13:41: 29 Yes 30mg Take 30 mg by mouth 2 (two) times daily. [facility] benazepriL 10 mg tablet 11-11 13:41: 29 Yes 10mg Take 10 mg by mouth daily. [facility] hydroCHLORO thiazide 25 mg tablet 11-11 13:41: 29 Yes 25mg Take 25 mg by mouth daily. [facility] omeprazole 40 mg capsule 11-11 13:41: 29 Yes 40mg Take 40 mg by mouth daily. [facility] carvediloL 25 mg tablet 11-11 13:41: 29 Yes 25mg Take 25 mg by mouth 2 (two) times daily with meals. [facility] busPIRone 30 mg tablet 11-11 13:41: 29 Yes 30mg Take 30 mg by mouth 2 (two) times daily. [facility] benazepriL 10 mg tablet 11-11 13:41: 29 Yes 10mg Take 10 mg by mouth daily. [facility] hydroCHLORO thiazide 25 mg tablet 11-11 13:41: 29 Yes 25mg Take 25 mg by mouth daily. [facility] foLIC acid (FOLATE) tablet 1 mg 11-11 00:15: 00 11-11 00:26 :00 No 1mg 1 mg, Oral, ONCE, 1 dose, On Tue11/10/22 at 1815, Routine [facility] benzocaine- menthoL lozenge 11-11 00:00: 00 Yes [id number] 1{lozen ge} Take 1 Lozenge by mouth every 4 (four) hours as needed for Sore throat. [facility] budesonide- formoteroL 80-4.5 mcg/actuati on inhaler 11-11 00:00: 00 Yes [id number] 2{puff} Inhale 2 Puffs in the morning and 2 Puffs in the evening. [facility] benzocaine- menthoL lozenge 11-11 00:00: 00 Yes [id number] 1{lozen ge} Take 1 Lozenge by mouth every 4 (four) hours as needed for Sore throat. [facility] budesonide- formoteroL 80-4.5 mcg/actuati on inhaler 11-11 00:00: 00 Yes [id number] 2{puff} Inhale 2 Puffs in the morning and 2 Puffs in the evening. [facility] benzocaine- menthoL lozenge 11-11 00:00: 00 Yes [id number] 1{lozen ge} Take 1 Lozenge by mouth every 4 (four) hours as needed for Sore throat. [facility] budesonide- formoteroL 80-4.5 mcg/actuati on inhaler 11-11 00:00: 00 Yes [id number] 2{puff} Inhale 2 Puffs in the morning and 2 Puffs in the evening. [facility] benzocaine- menthoL lozenge 11-11 00:00: 00 Yes [id number] 1{lozen ge} Take 1 Lozenge by mouth every 4 (four) hours as needed for Sore throat. [facility] budesonide- formoteroL 80-4.5 mcg/actuati on inhaler 11-11 00:00: 00 Yes [id number] 2{puff} Inhale 2 Puffs in the morning and 2 Puffs in the evening. [facility] benzocaine- menthoL lozenge 11-11 00:00: 00 Yes [id number] 1{lozen ge} Take 1 Lozenge by mouth every 4 (four) hours as needed for Sore throat. [facility] budesonide- formoteroL 80-4.5 mcg/actuati on inhaler 11-11 00:00: 00 Yes [id number] 2{puff} Inhale 2 Puffs in the morning and 2 Puffs in the evening. [facility] benzocaine- menthoL lozenge 11-11 00:00: 00 11-28 00:00 :00 No [id number] 1{lozen ge} Take 1 Lozenge by mouth every 4 (four) hours as needed for Sore throat. [facility] budesonide- formoteroL 80-4.5 mcg/actuati on inhaler 11-11 00:00: 00 11-28 00:00 :00 No [id number] 2{puff} Inhale 2 Puffs in the morning and 2 Puffs in the evening. [facility] sodium chloride 1 gram tablet 2022-0 11-11 00:00: 00 11-22 05:59 :00 No [id number] 1g Take 1 tablet by mouth in the morning and 1 tablet at noon and 1 tablet in the evening. Take with meals. Do all this for 10 days. [facility] sodium chloride 1 gram tablet 0 11-11 00:00: 00 11-22 05:59 :00 No [id number] 1g Take 1 tablet by mouth in the morning and 1 tablet at noon and 1 tablet in the evening. Take with meals. Do all this for 10 days. [facility] sodium chloride 1 gram tablet 11-11 00:00: 00 11-22 05:59 :00 No [id number] 1g Take 1 tablet by mouth in the morning and 1 tablet at noon and 1 tablet in the evening. Take with meals. Do all this for 10 days. [facility] sodium chloride 1 gram tablet 2022-0 11-11 00:00: 00 11-22 05:59 :00 No [id number] 1g Take 1 tablet by mouth in the morning and 1 tablet at noon and 1 tablet in the evening. Take with meals. Do all this for 10 days. [facility] levoFLOXaci n 750 mg tablet 11-11 00:00: 00 11-17 05:59 :00 No [id number] 750mg Take 1 tablet by mouth every 24 (twenty-fo ur) hours for 5 days. [facility] levoFLOXaci n 750 mg tablet 2022-11-11 00:00: 00 11-17 05:59 :00 No [id number] 750mg Take 1 tablet by mouth every 24 (twenty-fo ur) hours for 5 days. [facility] predniSONE 20 mg tablet 2022-0 11-11 00:00: 00 11-15 05:59 :00 No [id number] 40mg Take 2 tablets by mouth in the morning for 3 days. [facility] predniSONE 20 mg tablet 2022-0 11-11 00:00: 11-15 05:59 :00 No [id number] 40mg Take 2 tablets by mouth in the morning for 3 days. [facility] sodium chloride tablet 1 g 11-10 23:15: 00 Yes 1g 1 g, Oral, TID MEALS, First dose on Tue11/10/22 at 1715, Until Discontinu ed, Routine [facility] benzocaine- menthoL (CEPACOL SORE THROAT (JACINTO-MEN)) lozenge 1 Lozenge 11-10 20:49: 25 Yes 1{lozen ge} 1 Lozenge, Oral, Q4HPRN, Starting on Tue11/10/22 at 1449, Until Discontinu ed, Routine, Sore throat [facility] budesonide- formoteroL (SYMBICORT) 80-4.5 mcg/actuati on inhaler 2 Puff 11-10 17:30: 00 Yes 2{puff} 2 Puff, Inhalation , BID, First dose on Tue11/10/22 at 1130, Until Discontinu ed, [facility] 40 mg 11-10 15:00: 00 Yes 40mg 40 mg, Oral, DAILY, First dose on Tue11/10/22 at 0900, Until Discontinu ed [facility] rivaroxaban (XARELTO) tablet 20 mg 11-10 15:00: 00 Yes 20mg 20 mg, Oral, DAILY, First dose on Tue11/10/22 at 0900, Until Discontinu ed, Routine [facility] aspirin chewable tablet 81 mg 11-10 15:00: 00 Yes 81mg 81 mg, Oral, DAILY, First dose on Tue11/10/22 at 0900, Until Discontinu ed, Routine [facility] methylPREDN ISolone sod succ (SOLU-MEDRO L (PF)) injection 40 mg 11-10 15:00: 00 11-14 14:59 :00 No 40mg 40 mg, Intravenou s, DAILY, 4 doses, First dose on Tue11/10/22 at 0900, Last dose on Tue11/13/22 at 0900, 1 mL [facility] NaCl 0.9% (NS) IV infusion 1,000 mL 11-10 09:00: 00 Yes 1000mL at 100 mL/hr, IV Infusion, CONTINUOUS , Starting on Tue11/10/22 at 0300, Until Discontinu ed, Routine [facility] levoFLOXaci n in D5W (LEVAQUIN) 750 mg/150 [...] Urine
[facility] busPIRone (BUSPAR) tablet 30 mg 11-10 02:00: 00 Yes 30mg 30 mg, Oral, BID, First dose on Tue11/09/22 at 2000, Until Discontinu ed, Routine [facility] carvediloL (COREG) tablet 25 mg 11-09 23:00: 00 Yes 25mg 25 mg, Oral, BID MEALS, First dose on Tue11/09/22 at 1700, Until Discontinu ed, Routine [facility] ipratropium (ATROVENT) 0.02 % nebulizer solution 0.5 mg 11-09 22:00: 00 Yes .5mg 0.5 mg, Inhalation , Q4H, First dose on Tue11/09/22 at 1600, Until Discontinu ed, Routine [facility] albuterol (PROVENTIL) 2.5 mg /3 mL [...] 1 dose, On Tue11/09/22 at 1415, STAT [facility] ondansetron (ZOFRAN (PF)) injection 4 mg 11-09 20:04: 17 Yes 4mg 4 mg, Slow IV Push, Q6HPRN, Starting on Tue11/09/22 at 1404, Until Discontinu ed, Routine, Nausea and Vomiting (N/V) [facility] acetaminoph en (TYLENOL) tablet 650 mg 11-09 20:04: 07 Yes 650mg 650 mg, Oral, Q6HPRN, Starting on Tue11/09/22 at 1404, Until Discontinu ed, Routine, Pain (scale 1-3), Temp > 38 C [facility] albuterol (PROVENTIL) 2.5 mg /3 mL (0.083 %) nebulizer solution 5 mg 11-09 14:00: 00 11-09 14:05 :00 No 5mg 5 mg, Inhalation , ONCE, 1 dose, On Tue11/09/22 at 0800, STAT [facility] albuterol (PROVENTIL) 2.5 mg /3 mL (0.083 %) nebulizer solution 10 mg 11-09 11:00: 00 11-09 11:04 :00 No 10mg 10 mg, Inhalation , ONCE, 1 dose, On Tue11/09/22 at 0500, STAT [facility] ipratropium (ATROVENT) 0.02 % nebulizer solution 0.5 mg 11-09 09:00: 00 11-09 08:59 :00 No .5mg 0.5 mg, Inhalation , ONCE, 1 dose, On Tue11/09/22 at 0300, [facility] albuterol (PROVENTIL) 2.5 mg /3 mL (0.083 %) nebulizer solution 2.5 mg 11-09 09:00: 00 11-09 08:59 :00 No 2.5mg 2.5 mg, Inhalation , ONCE, 1 dose, On Tue11/09/22 at 0300, STAT [facility] magnesium sulfate in water 2 gram/50 mL (4 %) infusion 2 g 11-09 08:30: 00 11-09 08:22 :00 No 2g 2 g, IV Piggyback, Administer over 60 Minutes, ONCE, 1 dose, On Tue11/09/22 at 0230, Routine [facility] methylPREDN ISolone sodium succinate (SOLU-MEDRO L) injection 125 mg 11-09 07:45: 00 11-09 07:41 :00 No 125mg 125 mg, Intravenou s, ONCE, 1 dose, On Tue11/09/22 at 0145, [facility] ipratropium (ATROVENT) 0.02 % nebulizer solution 0.5 mg 11-09 07:45: 00 11-09 07:40 :00 No .5mg 0.5 mg, Inhalation , ONCE, 1 dose, On Tue11/09/22 at 0145, [facility] albuterol (PROVENTIL) 2.5 mg /3 mL (0.083 %) nebulizer solution 2.5 mg 11-09 07:45: 00 11-09 07:40 :00 No 2.5mg 2.5 mg, Inhalation , ONCE, 1 dose, On Tue11/09/22 at 0145, STAT [facility] cephALEXin (KEFLEX) 500 mg capsule 05-22 00:00: 00 Yes [id number] 500mg Take 1 capsule by mouth 4 (four) times daily. [facility] cephALEXin (KEFLEX) 500 mg capsule 05-22 00:00: 00 Yes [id number] 500mg Take 1 capsule by mouth 4 (four) times daily. [facility] cephALEXin (KEFLEX) 500 mg capsule 05-22 00:00: 00 11-11 00:00 :00 No [id number] 500mg Take 1 capsule by mouth 4 (four) times daily. [facility] cefTRIAXone (ROCEPHIN) 1,000 mg in NaCl 0.9% (NS) 50 mL MINI-BAG 12-12 19:00: 00 12-12 18:23 :00 No 1000mg 1,000 mg, IV Piggyback, ONCE, 1 dose, Tue12/12/20 at 1400, 50 mL
Reas on for Anti-Infec tive: Empiric Therapy for Suspected Infection< br>Empiric Therapy Site: Urine
D uration of therapy: 72 hours [facility] carvediloL 25 mg tablet 12-12 18:38: 04 Yes 25mg Take 25 mg by mouth 2 (two) times daily with meals. [facility] busPIRone 30 mg tablet 12-12 18:38: 04 Yes 30mg Take 30 mg by mouth 2 (two) times daily. [facility] benazepriL 10 mg tablet 12-12 18:38: 04 Yes 10mg Take 10 mg by mouth daily. [facility] hydroCHLORO thiazide 25 mg tablet 12-12 18:38: 04 Yes 25mg Take 25 mg by mouth daily. [facility] carvediloL 25 mg tablet 12-12 18:38: 04 Yes 25mg Take 25 mg by mouth 2 (two) times daily with meals. [facility] busPIRone 30 mg tablet 12-12 18:38: 04 Yes 30mg Take 30 mg by mouth 2 (two) times daily. [facility] benazepriL 10 mg tablet 12-12 18:38: 04 Yes 10mg Take 10 mg by mouth daily. [facility] hydroCHLORO thiazide 25 mg tablet 12-12 18:38: 04 Yes 25mg Take 25 mg by mouth daily. [facility] carvediloL 25 mg tablet 12-12 18:38: 04 Yes 25mg Take 25 mg by mouth 2 (two) times daily with meals. [facility] busPIRone 30 mg tablet 12-12 18:38: 04 Yes 30mg Take 30 mg by mouth 2 (two) times daily. [facility] benazepriL 10 mg tablet 12-12 18:38: 04 Yes 10mg Take 10 mg by mouth daily. [facility] hydroCHLORO thiazide 25 mg tablet 12-12 18:38: 04 Yes 25mg Take 25 mg by mouth daily. [facility] carvediloL 25 mg tablet 12-12 18:38: 04 Yes 25mg Take 25 mg by mouth 2 (two) times daily with meals. [facility] busPIRone 30 mg tablet 12-12 18:38: 04 Yes 30mg Take 30 mg by mouth 2 (two) times daily. [facility] benazepriL 10 mg tablet 12-12 18:38: 04 Yes 10mg Take 10 mg by mouth daily. [facility] hydroCHLORO thiazide 25 mg tablet 12-12 18:38: 04 Yes 25mg Take 25 mg by mouth daily. [facility] carvediloL 25 mg tablet 12-12 18:38: 04 Yes 25mg Take 25 mg by mouth 2 (two) times daily with meals. [facility] busPIRone 30 mg tablet 12-12 18:38: 04 Yes 30mg Take 30 mg by mouth 2 (two) times daily. [facility] benazepriL 10 mg tablet 12-12 18:38: 04 Yes 10mg Take 10 mg by mouth daily. [facility] hydroCHLORO thiazide 25 mg tablet 12-12 18:38: 04 Yes 25mg Take 25 mg by mouth daily. [facility] carvediloL 25 mg tablet 12-12 18:38: 04 Yes 25mg Take 25 mg by mouth 2 (two) times daily with meals. [facility] busPIRone 30 mg tablet 12-12 18:38: 04 Yes 30mg Take 30 mg by mouth 2 (two) times daily. [facility] benazepriL 10 mg tablet 12-12 18:38: 04 Yes 10mg Take 10 mg by mouth daily. [facility] hydroCHLORO thiazide 25 mg tablet 12-12 18:38: 04 Yes 25mg Take 25 mg by mouth daily. [facility] carvediloL 25 mg tablet 12-12 18:38: 04 Yes 25mg Take 25 mg by mouth 2 (two) times daily with meals. [facility] busPIRone 30 mg tablet 12-12 18:38: 04 Yes 30mg Take 30 mg by mouth 2 (two) times daily. [facility] benazepriL 10 mg tablet 12-12 18:38: 04 Yes 10mg Take 10 mg by mouth daily. [facility] hydroCHLORO thiazide 25 mg tablet 12-12 18:38: 04 Yes 25mg Take 25 mg by mouth daily. [facility] carvediloL 25 mg tablet 12-12 18:38: 04 Yes 25mg Take 25 mg by mouth 2 (two) times daily with meals. [facility] busPIRone 30 mg tablet 12-12 18:38: 04 Yes 30mg Take 30 mg by mouth 2 (two) times daily. [facility] benazepriL 10 mg tablet 12-12 18:38: 04 Yes 10mg Take 10 mg by mouth daily. [facility] hydroCHLORO thiazide 25 mg tablet 12-12 18:38: 04 Yes 25mg Take 25 mg by mouth daily. [facility] carvediloL 25 mg tablet 12-12 18:38: 04 Yes 25mg Take 25 mg by mouth 2 (two) times daily with meals. [facility] busPIRone 30 mg tablet 12-12 18:38: 04 Yes 30mg Take 30 mg by mouth 2 (two) times daily. [facility] benazepriL 10 mg tablet 12-12 18:38: 04 Yes 10mg Take 10 mg by mouth daily. [facility] hydroCHLORO thiazide 25 mg tablet 12-12 18:38: 04 Yes 25mg Take 25 mg by mouth daily. [facility] carvediloL 25 mg tablet 12-12 18:38: 04 Yes 25mg Take 25 mg by mouth 2 (two) times daily with meals. [facility] busPIRone 30 mg tablet 12-12 18:38: 04 Yes 30mg Take 30 mg by mouth 2 (two) times daily. [facility] benazepriL 10 mg tablet 12-12 18:38: 04 Yes 10mg Take 10 mg by mouth daily. [facility] hydroCHLORO thiazide 25 mg tablet 12-12 18:38: 04 Yes 25mg Take 25 mg by mouth daily. [facility] carvediloL 25 mg tablet 12-12 18:38: 04 Yes 25mg Take 25 mg by mouth 2 (two) times daily with meals. [facility] busPIRone 30 mg tablet 12-12 18:38: 04 Yes 30mg Take 30 mg by mouth 2 (two) times daily. [facility] benazepriL 10 mg tablet 12-12 18:38: 04 Yes 10mg Take 10 mg by mouth daily. [facility] hydroCHLORO thiazide 25 mg tablet 12-12 18:38: 04 Yes 25mg Take 25 mg by mouth daily. [facility] carvediloL 25 mg tablet 12-12 18:38: 04 Yes 25mg Take 25 mg by mouth 2 (two) times daily with meals. [facility] busPIRone 30 mg tablet 12-12 18:38: 04 Yes 30mg Take 30 mg by mouth 2 (two) times daily. [facility] benazepriL 10 mg tablet 12-12 18:38: 04 Yes 10mg Take 10 mg by mouth daily. [facility] hydroCHLORO thiazide 25 mg tablet 12-12 18:38: 04 Yes 25mg Take 25 mg by mouth daily. [facility] carvediloL 25 mg tablet 12-12 18:38: 04 Yes 25mg Take 25 mg by mouth 2 (two) times daily with meals. [facility] busPIRone 30 mg tablet 12-12 18:38: 04 Yes 30mg Take 30 mg by mouth 2 (two) times daily. [facility] benazepriL 10 mg tablet 12-12 18:38: 04 Yes 10mg Take 10 mg by mouth daily. [facility] hydroCHLORO thiazide 25 mg tablet 12-12 18:38: 04 Yes 25mg Take 25 mg by mouth daily. [facility] carvediloL 25 mg tablet 12-12 18:38: 04 Yes 25mg Take 25 mg by mouth 2 (two) times daily with meals. [facility] busPIRone 30 mg tablet 12-12 18:38: 04 Yes 30mg Take 30 mg by mouth 2 (two) times daily. [facility] benazepriL 10 mg tablet 12-12 18:38: 04 Yes 10mg Take 10 mg by mouth daily. [facility] hydroCHLORO thiazide 25 mg tablet 12-12 18:38: 04 Yes 25mg Take 25 mg by mouth daily. [facility] carvediloL 25 mg tablet 12-12 18:38: 04 Yes 25mg Take 25 mg by mouth 2 (two) times daily with meals. [facility] busPIRone 30 mg tablet 12-12 18:38: 04 Yes 30mg Take 30 mg by mouth 2 (two) times daily. [facility] benazepriL 10 mg tablet 12-12 18:38: 04 Yes 10mg Take 10 mg by mouth daily. [facility] hydroCHLORO thiazide 25 mg tablet 12-12 18:38: 04 Yes 25mg Take 25 mg by mouth daily. [facility] iohexol (OMNIPAQUE 350 BULK-150 mL) injection 120 mL 12-12 17:30: 00 12-12 17:21 :00 No [id number] 120mL 120 mL, Intravenou s, ONCE, 1 dose, Tue12/12/20 at 1230, Routine [facility] aspirin 81 mg EC tablet 12-12 16:57: 40 12-12 00:00 :00 No 81mg Take 81 mg by mouth daily. [facility] varenicline (CHANTIX) 1 mg tablet 12-12 16:57: 18 12-12 00:00 :00 No 1mg Take 1 mg by mouth 2 (two) times daily. [facility] predniSONE 20 mg tablet 12-12 16:57: 12 12-12 00:00 :00 No 20mg Take 20 mg by mouth daily. [facility] fluticasone -umeclidin- vilanter (TRELEGY ELLIPTA) 100-62.5-25 mcg DsDv 12-12 16:56: 46 12-12 00:00 :00 No 1{puff} Inhale 1 Puff daily. [facility] cefpodoxime 100 mg tablet 12-12 00:00: 00 Yes [id number] 100mg Take 1 tablet by mouth 2 (two) times daily. [facility] cefpodoxime 100 mg tablet 12-12 00:00: 00 Yes [id number] 100mg Take 1 tablet by mouth 2 (two) times daily. [facility] cefpodoxime 100 mg tablet 12-12 00:00: 00 Yes [id number] 100mg Take 1 tablet by mouth 2 (two) times daily. [facility] cefpodoxime 100 mg tablet 12-12 00:00: 00 Yes [id number] 100mg Take 1 tablet by mouth 2 (two) times daily. [facility] cefpodoxime 100 mg tablet 12-12 00:00: 00 Yes [id number] 100mg Take 1 tablet by mouth 2 (two) times daily. [facility] cefpodoxime 100 mg tablet 2020-0 12-12 00:00: 00 Yes [id number] 100mg Take 1 tablet by mouth 2 (two) times daily. [facility] cefpodoxime 100 mg tablet 2020-0 12-12 00:00: 00 Yes [id number] 100mg Take 1 tablet by mouth 2 (two) times daily. [facility] cefpodoxime 100 mg tablet 2020-0 12-12 00:00: 00 Yes [id number] 100mg Take 1 tablet by mouth 2 (two) times daily. [facility] cefpodoxime 100 mg tablet 2020-0 12-12 00:00: 00 Yes [id number] 100mg Take 1 tablet by mouth 2 (two) times daily. [facility] cefpodoxime 100 mg tablet 2020-0 12-12 00:00: 00 Yes [id number] 100mg Take 1 tablet by mouth 2 (two) times daily. [facility] cefpodoxime 100 mg tablet 2020-0 12-12 00:00: 00 Yes [id number] 100mg Take 1 tablet by mouth 2 (two) times daily. [facility] cefpodoxime 100 mg tablet 2020-0 12-12 00:00: 00 Yes [id number] 100mg Take 1 tablet by mouth 2 (two) times daily. [facility] cefpodoxime 100 mg tablet 2020-0 12-12 00:00: 00 Yes [id number] 100mg Take 1 tablet by mouth 2 (two) times daily. [facility] cefpodoxime 100 mg tablet 2020-0 12-12 00:00: 00 Yes [id number] 100mg Take 1 tablet by mouth 2 (two) times daily. [facility] cefpodoxime 100 mg tablet 2020-0 12-12 00:00: 00 Yes [id number] 100mg Take 1 tablet by mouth 2 (two) times daily. [facility] cefpodoxime 100 mg tablet 2020-0 12-12 00:00: 00 20211-11 00:00 :00 No [id number] 100mg Take 1 tablet by mouth 2 (two) times daily. [facility] cefpodoxime 100 mg tablet 12-12 00:00: 00 12-12 00:00 :00 No [id number] 100mg Take 1 tablet by mouth 2 (two) times daily for 7 days. [facility] [place] [facility] XARELTO 15 mg tablet 10-16 00:00: 00 Yes [facility] XARELTO 15 mg tablet 10-16 00:00: 00 Yes [facility] XARELTO 15 mg tablet 10-16 00:00: 00 Yes [facility] XARELTO 15 mg tablet 10-16 00:00: 00 Yes [facility] XARELTO 15 mg tablet 10-16 00:00: 00 Yes [facility] XARELTO 15 mg tablet 10-16 00:00: 00 Yes [facility] XARELTO 15 mg tablet 10-16 00:00: 00 Yes [facility] XARELTO 15 mg tablet 10-16 00:00: 00 Yes [facility] XARELTO 15 mg tablet 10-16 00:00: 00 Yes [facility] XARELTO 15 mg tablet 10-16 00:00: 00 Yes [facility] XARELTO 15 mg tablet 10-16 00:00: 00 Yes [facility] XARELTO 15 mg tablet 10-16 00:00: 00 Yes [facility] XARELTO 15 mg tablet 10-16 00:00: 00 Yes [facility] XARELTO 15 mg tablet 10-16 00:00: 00 Yes [facility] XARELTO 15 mg tablet 10-16 00:00: 00 Yes [facility] XARELTO 15 mg tablet 10-16 00:00: 00 Yes [facility] XARELTO 15 mg tablet 10-16 00:00: 00 Yes [facility] XARELTO 15 mg tablet 10-16 00:00: 00 Yes [facility] XARELTO 15 mg tablet 10-16 00:00: 00 Yes [facility] XARELTO 15 mg tablet 10-16 00:00: 00 Yes [facility] XARELTO 15 mg tablet 10-16 00:00: 00 Yes [facility] XARELTO 15 mg tablet 10-16 00:00: 00 Yes [facility] XARELTO 15 mg tablet 10-16 00:00: 00 Yes [facility] XARELTO 15 mg tablet 10-16 00:00: 00 11-28 00:00 :00 No [facility] omeprazole 40 mg capsule 2018-09 00:11: 42 Yes 40mg Take 40 mg by mouth daily. [facility] omeprazole 40 mg capsule 2018-09 00:11: 42 Yes 40mg Take 40 mg by mouth daily. [facility] varenicline (CHANTIX) 1 mg tablet 2018-09 00:11: 42 Yes 1mg Take 1 mg by mouth 2 (two) times daily. [facility] predniSONE 20 mg tablet 2018-09 00:11: 42 Yes 20mg Take 20 mg by mouth daily. [facility] omeprazole 40 mg capsule 2018-09 00:11: 42 Yes 40mg Take 40 mg by mouth daily. [facility] fluticasone -umeclidin- vilanter (TRELEGY ELLIPTA) 100-62.5-25 mcg DsDv 2018-09 00:11: 42 Yes 1{puff} Inhale 1 Puff daily. [facility] aspirin 81 mg EC tablet 2018-09 00:11: 42 Yes 81mg Take 81 mg by mouth daily. [facility] varenicline (CHANTIX) 1 mg tablet 2018-09 00:11: 42 Yes 1mg Take 1 mg by mouth 2 (two) times daily. [facility] predniSONE 20 mg tablet 2018-09 00:11: 42 Yes 20mg Take 20 mg by mouth daily. [facility] omeprazole 40 mg capsule 2018-09 00:11: 42 Yes 40mg Take 40 mg by mouth daily. [facility] fluticasone -umeclidin- vilanter (TRELEGY ELLIPTA) 100-62.5-25 mcg DsDv 2018-09 00:11: 42 Yes 1{puff} Inhale 1 Puff daily. [facility] aspirin 81 mg EC tablet 2018-09 00:11: 42 Yes 81mg Take 81 mg by mouth daily. [facility] varenicline (CHANTIX) 1 mg tablet 2018-09 00:11: 42 Yes 1mg Take 1 mg by mouth 2 (two) times daily. [facility] predniSONE 20 mg tablet 2018-09 00:11: 42 Yes 20mg Take 20 mg by mouth daily. [facility] omeprazole 40 mg capsule 2018-09 00:11: 42 Yes 40mg Take 40 mg by mouth daily. [facility] fluticasone -umeclidin- vilanter (TRELEGY ELLIPTA) 100-62.5-25 mcg DsDv 2018-09 00:11: 42 Yes 1{puff} Inhale 1 Puff daily. [facility] aspirin 81 mg EC tablet 2018-09 00:11: 42 Yes 81mg Take 81 mg by mouth daily. [facility] varenicline (CHANTIX) 1 mg tablet 2018-09 00:11: 42 Yes 1mg Take 1 mg by mouth 2 (two) times daily. [facility] predniSONE 20 mg tablet 2018-09 00:11: 42 Yes 20mg Take 20 mg by mouth daily. [facility] omeprazole 40 mg capsule 2018-09 00:11: 42 Yes 40mg Take 40 mg by mouth daily. [facility] fluticasone -umeclidin- vilanter (TRELEGY ELLIPTA) 100-62.5-25 mcg DsDv 2018-09 00:11: 42 Yes 1{puff} Inhale 1 Puff daily. [facility] aspirin 81 mg EC tablet 2018-09 00:11: 42 Yes 81mg Take 81 mg by mouth daily. [facility] varenicline (CHANTIX) 1 mg tablet 2018-09 00:11: 42 Yes 1mg Take 1 mg by mouth 2 (two) times daily. [facility] predniSONE 20 mg tablet 2018-09 00:11: 42 Yes 20mg Take 20 mg by mouth daily. [facility] omeprazole 40 mg capsule 2018-09 00:11: 42 Yes 40mg Take 40 mg by mouth daily. [facility] fluticasone -umeclidin- vilanter (TRELEGY ELLIPTA) 100-62.5-25 mcg DsDv 2018-09 00:11: 42 Yes 1{puff} Inhale 1 Puff daily. [facility] aspirin 81 mg EC tablet 2018-09 00:11: 42 Yes 81mg Take 81 mg by mouth daily. [facility] varenicline (CHANTIX) 1 mg tablet 2018-09 00:11: 42 Yes 1mg Take 1 mg by mouth 2 (two) times daily. [facility] predniSONE 20 mg tablet 2018-09 00:11: 42 Yes 20mg Take 20 mg by mouth daily. [facility] omeprazole 40 mg capsule 2018-09 00:11: 42 Yes 40mg Take 40 mg by mouth daily. [facility] fluticasone -umeclidin- vilanter (TRELEGY ELLIPTA) 100-62.5-25 mcg DsDv 2018-09 00:11: 42 Yes 1{puff} Inhale 1 Puff daily. [facility] aspirin 81 mg EC tablet 2018-09 00:11: 42 Yes 81mg Take 81 mg by mouth daily. [facility] omeprazole 40 mg capsule 2018-09 00:11: 42 Yes 40mg Take 40 mg by mouth daily. [facility] omeprazole 40 mg capsule 2018-09 00:11: 42 Yes 40mg Take 40 mg by mouth daily. [facility] omeprazole 40 mg capsule 2018-09 00:11: 42 Yes 40mg Take 40 mg by mouth daily. [facility] omeprazole 40 mg capsule 2018-09 00:11: 42 Yes 40mg Take 40 mg by mouth daily. [facility] omeprazole 40 mg capsule 2018-09 00:11: 42 Yes 40mg Take 40 mg by mouth daily. [facility] omeprazole 40 mg capsule 2018-09 00:11: 42 Yes 40mg Take 40 mg by mouth daily. [facility] omeprazole 40 mg capsule 2018-09 00:11: 42 Yes 40mg Take 40 mg by mouth daily. [facility] omeprazole 40 mg capsule 2018-09 00:11: 42 Yes 40mg Take 40 mg by mouth daily. [facility] omeprazole 40 mg capsule 2018-09 00:11: 42 Yes 40mg Take 40 mg by mouth daily. [facility] omeprazole 40 mg capsule 2018-09 00:11: 42 Yes 40mg Take 40 mg by mouth daily. [facility] omeprazole 40 mg capsule 2018-09 00:11: 42 Yes 40mg Take 40 mg by mouth daily. [facility] omeprazole 40 mg capsule 2018-09 00:11: 42 Yes 40mg Take 40 mg by mouth daily. [facility] omeprazole 40 mg capsule 2018-09 00:11: 42 Yes 40mg Take 40 mg by mouth daily. [facility] KCL 20 mEq tablet 2018-09 00:00: 00 Yes [id number] 40meq Take 2 tablets by mouth daily. [facility] KCL 20 mEq tablet 2018-09 00:00: 00 Yes [id number] 40meq Take 2 tablets by mouth daily. [facility] atorvastati n 20 mg tablet 2018-09 00:00: 00 Yes [id number] 20mg Take 1 tablet by mouth at bedtime. [facility] metoprolol succinate XL 50 mg 24 hr tablet 2018-09 00:00: 00 Yes [id number] 50mg Take 1 tablet by mouth 2 (two) times daily. [facility] furosemide 40 mg tablet 2018-09 00:00: 00 Yes [id number] 40mg Take 1 tablet by mouth every morning and evening. [facility] KCL 20 mEq tablet 2018-09 00:00: 00 Yes [id number] 40meq Take 2 tablets by mouth daily. [facility] atorvastati n 20 mg tablet 2018-09 00:00: 00 Yes [id number] 20mg Take 1 tablet by mouth at bedtime. [facility] metoprolol succinate XL 50 mg 24 hr tablet 2018-09 00:00: 00 Yes [id number] 50mg Take 1 tablet by mouth 2 (two) times daily. [facility] furosemide 40 mg tablet 2018-09 00:00: 00 Yes [id number] 40mg Take 1 tablet by mouth every morning and evening. [facility] KCL 20 mEq tablet 2018-09 00:00: 00 Yes [id number] 40meq Take 2 tablets by mouth daily. [facility] atorvastati n 20 mg tablet 2018-09 00:00: 00 Yes [id number] 20mg Take 1 tablet by mouth at bedtime. [facility] metoprolol succinate XL 50 mg 24 hr tablet 2018-09 00:00: 00 Yes [id number] 50mg Take 1 tablet by mouth 2 (two) times daily. [facility] furosemide 40 mg tablet 2018-09 00:00: 00 Yes [id number] 40mg Take 1 tablet by mouth every morning and evening. [facility] KCL 20 mEq tablet 2018-09 00:00: 00 Yes [id number] 40meq Take 2 tablets by mouth daily. [facility] atorvastati n 20 mg tablet 2018-09 00:00: 00 Yes [id number] 20mg Take 1 tablet by mouth at bedtime. [facility] metoprolol succinate XL 50 mg 24 hr tablet 2018-09 00:00: 00 Yes [id number] 50mg Take 1 tablet by mouth 2 (two) times daily. [facility] furosemide 40 mg tablet 2018-09 00:00: 00 Yes [id number] 40mg Take 1 tablet by mouth every morning and evening. [facility] KCL 20 mEq tablet 2018-09 00:00: 00 Yes [id number] 40meq Take 2 tablets by mouth daily. [facility] atorvastati n 20 mg tablet 2018-09 00:00: 00 Yes [id number] 20mg Take 1 tablet by mouth at bedtime. [facility] metoprolol succinate XL 50 mg 24 hr tablet 2018-09 00:00: 00 Yes [id number] 50mg Take 1 tablet by mouth 2 (two) times daily. [facility] furosemide 40 mg tablet 2018-09 00:00: 00 Yes [id number] 40mg Take 1 tablet by mouth every morning and evening. [facility] KCL 20 mEq tablet 2018-09 00:00: 00 Yes [id number] 40meq Take 2 tablets by mouth daily. [facility] atorvastati n 20 mg tablet 2018-09 00:00: 00 Yes [id number] 20mg Take 1 tablet by mouth at bedtime. [facility] metoprolol succinate XL 50 mg 24 hr tablet 2018-09 00:00: 00 Yes [id number] 50mg Take 1 tablet by mouth 2 (two) times daily. [facility] furosemide 40 mg tablet 2018-09 00:00: 00 Yes [id number] 40mg Take 1 tablet by mouth every morning and evening. [facility] KCL 20 mEq tablet 2018-09 00:00: 00 Yes [id number] 40meq Take 2 tablets by mouth daily. [facility] KCL 20 mEq tablet 2018-09 00:00: 00 Yes [id number] 40meq Take 2 tablets by mouth daily. [facility] 2018-09 00:00: 00 Yes [id number] 40meq Take 2 tablets by mouth daily. [facility] 2018-09 00:00: 00 Yes [id number] 40meq Take 2 tablets by mouth daily. [facility] 2018-09 00:00: 00 Yes [id number] 40meq Take 2 tablets by mouth daily. [facility]Eq [facility] 2018-09 00:00: 00 Yes [id number] 40meq Take 2 tablets by mouth daily. [facility] KCL 20 mEq tablet 2018-09 00:00: 00 Yes [id number] 40meq Take 2 tablets by mouth daily. [facility] KCL 20 mEq tablet 2018-09 00:00: 00 Yes [id number] 40meq Take 2 tablets by mouth daily. [facility] KCL 20 mEq tablet 2018-09 00:00: 00 Yes [id number] 40meq Take 2 tablets by mouth daily. [facility] KCL 20 mEq tablet 2018-09 00:00: 00 Yes [id number] 40meq Take 2 tablets by mouth daily. [facility] KCL 20 mEq tablet 2018-09 00:00: 00 Yes [id number] 40meq Take 2 tablets by mouth daily. [facility] KCL 20 mEq tablet 2018-09 00:00: 00 Yes [id number] 40meq Take 2 tablets by mouth daily. [facility] KCL 20 mEq tablet 2018-09 00:00: 00 Yes [id number] 40meq Take 2 tablets by mouth daily. [facility] KCL 20 mEq tablet 2018-09 00:00: 00 Yes [id number] 40meq Take 2 tablets by mouth daily. [facility] KCL 20 mEq tablet 2018-09 00:00: 00 Yes [id number] 40meq Take 2 tablets by mouth daily. [facility] KCL 20 mEq tablet 2018-09 00:00: 00 Yes [id number] 40meq Take 2 tablets by mouth daily. [facility] KCL 20 mEq tablet 2018-09 00:00: 00 Yes [id number] 40meq Take 2 tablets by mouth daily. [facility] KCL 20 mEq tablet 2018-09 00:00: 00 Yes [id number] 40meq Take 2 tablets by mouth daily. [facility] KCL 20 mEq tablet 2018-09 00:00: 00 Yes [id number] 40meq Take 2 tablets by mouth daily. [facility] KCL 20 mEq tablet 2018-09 00:00: 00 11-28 00:00 :00 No [id number] 40meq Take 2 tablets by mouth daily. [facility] atorvastati n 20 mg tablet 2018-09 00:00: 00 12-12 00:00 :00 No [id number] 20mg Take 1 tablet by mouth at bedtime. [facility] metoprolol succinate XL 50 mg 24 hr tablet 2018-09 00:00: 00 12-12 00:00 :00 No [id number] 50mg Take 1 tablet by mouth 2 (two) times daily. [facility] furosemide 40 mg tablet 2018-09 00:00: 00 12-12 00:00 :00 No [id number] 40mg Take 1 tablet by mouth every morning and evening. [facility] ipratropium -albuterol (DUONEB) 0.5 mg-3 mg(2.5 mg base)/3 mL nebulizer solution 3 mL 05-04 13:00: 00 Yes 3mL 3 mL, Inhalation , QID, First dose on Tue05/04/19 at 0800, Until Discontinu ed, Routine [facility] ibuprofen 600 mg tablet 02-16 00:00: 00 Yes [id number] 600mg Take 1 tablet by mouth every 8 (eight) hours as needed (PAIN). [facility] ibuprofen 600 mg tablet 02-16 00:00: 00 Yes [id number] 600mg Take 1 tablet by mouth every 8 (eight) hours as needed (pain). [facility] ibuprofen 600 mg tablet 02-16 00:00: 00 05-03 00:00 :00 No [id number] 600mg Take 1 tablet by mouth every 8 (eight) hours as needed (PAIN). [facility] ibuprofen 600 mg tablet 02-16 00:00: 05-03 00:00 :00 No [id number] 600mg Take 1 tablet by mouth every 8 (eight) hours as needed (pain). [facility] magnesium oxide (MAG-OX 400) 400 mg tablet 11-11 00:00: 00 Yes 400mg Take 1 Tab by mouth 3 (three) times daily. [facility] enalapril (VASOTEC) 2.5 mg tablet 11-11 00:00: 00 Yes [id number] 2.5mg Take 1 Tab by mouth 2 (two) times daily. [facility] pantoprazol e (PROTONIX) 40 mg EC tablet 11-11 00:00: 00 Yes 40mg Take 1 Tab by mouth daily. [facility] KCL (KLOR-CON M20) 20 mEq tablet 11-11 00:00: 00 Yes 20meq Take 1 Tab by mouth daily. [facility] furosemide (LASIX) 40 mg tablet 11-11 00:00: 00 Yes [id number] 40mg Take 1 Tab by mouth 2 (two) times daily. [facility] metoprolol succinate XL (TOPROL XL) 100 mg 24 hr tablet 11-11 00:00: 00 Yes 100mg Take 1 Tab by mouth daily. [facility] magnesium oxide (MAG-OX 400) 400 mg tablet 11-11 00:00: 00 05-03 00:00 :00 No 400mg Take 1 Tab by mouth 3 (three) times daily. [facility] enalapril (VASOTEC) 2.5 mg tablet 11-11 00:00: 05-03 00:00 :00 No [id number] 2.5mg Take 1 Tab by mouth 2 (two) times daily. [facility] pantoprazol e (PROTONIX) 40 mg EC tablet 11-11 00:00: 00 05-03 00:00 :00 No 40mg Take 1 Tab by mouth daily. [facility] KCL (KLOR-CON M20) 20 mEq tablet 11-11 00:00: 00 05-03 00:00 :00 No 20meq Take 1 Tab by mouth daily. [facility] furosemide (LASIX) 40 mg tablet 11-11 00:00: 00 05-03 00:00 :00 No [id number] 40mg Take 1 Tab by mouth 2 (two) times daily. [facility] metoprolol succinate XL (TOPROL XL) 100 mg 24 hr tablet 11-11 00:00: 00 05-03 00:00 :00 No 100mg Take 1 Tab by mouth daily. [facility] aspirin 81 mg chewable tablet 2013-09 00:00: 00 Yes 81mg Take 1 Tab by mouth daily. [facility] ipratropium (ATROVENT) 0.02 % nebulizer solution 2013-09 00:00: 00 Yes .5mg Inhale 2.5 mL 4 (four) times daily. [facility] levalbutero l (XOPENEX) 0.31 mg/3 mL nebulizer solution 2013-09 00:00: 00 Yes .31mg Inhale 0.31 mg 3 (three) times daily. [facility] aspirin 81 mg chewable tablet 2013-09 00:00: 00 Yes 81mg Take 1 Tab by mouth daily. [facility] ipratropium (ATROVENT) 0.02 % nebulizer solution 2013-09 00:00: 00 Yes .5mg Inhale 2.5 mL 4 (four) times daily. [facility] levalbutero l (XOPENEX) 0.31 mg/3 mL nebulizer solution 2013-09 00:00: 00 Yes .31mg Inhale 0.31 mg 3 (three) times daily. [facility] aspirin 81 mg chewable tablet 2013-09 00:00: 00 Yes 81mg Take 1 Tab by mouth daily. [facility] ipratropium (ATROVENT) 0.02 % nebulizer solution 2013-09 00:00: 00 Yes .5mg Inhale 2.5 mL 4 (four) times daily. [facility] levalbutero l (XOPENEX) 0.31 mg/3 mL nebulizer solution 2013-09 00:00: 00 Yes .31mg Inhale 0.31 mg 3 (three) times daily. [facility] aspirin 81 mg chewable tablet 2013-09 00:00: 00 Yes 81mg Take 1 Tab by mouth daily. [facility] ([facility]OVENT) 0.02 % nebulizer solution 2013-09 00:00: 00 Yes .5mg Inhale 2.5 mL 4 (four) times daily. [facility] levalbutero l (XOPENEX) 0.31 mg/3 mL nebulizer solution 2013-09 00:00: 00 Yes .31mg Inhale 0.31 mg 3 (three) times daily. [facility] aspirin 81 mg chewable tablet 2013-09 00:00: 00 Yes 81mg Take 1 Tab by mouth daily. [facility] ipratropium (ATROVENT) 0.02 % nebulizer solution 2013-09 00:00: 00 Yes .5mg Inhale 2.5 mL 4 (four) times daily. [facility] levalbutero l (XOPENEX) 0.31 mg/3 mL nebulizer solution 2013-09 00:00: 00 Yes .31mg Inhale 0.31 mg 3 (three) times daily. [facility] aspirin 81 mg chewable tablet 2013-09 00:00: 00 Yes 81mg Take 1 Tab by mouth daily. [facility] ipratropium (ATROVENT) 0.02 % nebulizer solution 2013-09 00:00: 00 Yes .5mg Inhale 2.5 mL 4 (four) times daily. [facility] levalbutero l (XOPENEX) 0.31 mg/3 mL nebulizer solution 2013-09 00:00: 00 Yes .31mg Inhale 0.31 mg 3 (three) times daily. [facility] 2013-09 00:00: 00 Yes 81mg Take 1 Tab by mouth daily. [facility]ropium (ATROVENT) 0.02 % nebulizer solution 2013-09 00:00: 00 Yes .5mg Inhale 2.5 mL 4 (four) times daily. [facility] (XOPENEX) 0.31 mg/3 mL nebulizer solution 2013-09 00:00: 00 Yes .31mg Inhale 0.31 mg 3 (three) times daily. [facility] aspirin 81 mg chewable tablet 2013-09 00:00: 00 Yes 81mg Take 1 Tab by mouth daily. [facility] ipratropium (ATROVENT) 0.02 % nebulizer solution 2013-09 00:00: 00 Yes .5mg Inhale 2.5 mL 4 (four) times daily. [facility] levalbutero l (XOPENEX) 0.31 mg/3 mL nebulizer solution 2013-09 00:00: 00 Yes .31mg Inhale 0.31 mg 3 (three) times daily. [facility] aspirin 81 mg chewable tablet 2013-09 00:00: 00 Yes 81mg Take 1 Tab by mouth daily. [facility] ipratropium (ATROVENT) 0.02 % nebulizer solution 2013-09 00:00: 00 Yes .5mg Inhale 2.5 mL 4 (four) times daily. [facility] (XOPENEX) 0.31 mg/3 mL nebulizer solution 2013-09 00:00: 00 Yes .31mg Inhale 0.31 mg 3 (three) times daily. [facility] aspirin 81 mg chewable tablet 2013-09 00:00: 00 Yes 81mg Take 1 Tab by mouth daily. [facility] ipratropium (ATROVENT) 0.02 % nebulizer solution 2013-09 00:00: 00 Yes .5mg Inhale 2.5 mL 4 (four) times daily. [facility] levalbutero l (XOPENEX) 0.31 mg/3 mL nebulizer solution 2013-09 00:00: 00 Yes .31mg Inhale 0.31 mg 3 (three) times daily. [facility] aspirin 81 mg chewable tablet 2013-09 00:00: 00 Yes 81mg Take 1 Tab by mouth daily. [facility] ipratropium (ATROVENT) 0.02 % nebulizer solution 2013-09 00:00: 00 Yes .5mg Inhale 2.5 mL 4 (four) times daily. [facility] levalbutero l (XOPENEX) 0.31 mg/3 mL nebulizer solution 2013-09 00:00: 00 Yes .31mg Inhale 0.31 mg 3 (three) times daily. [facility] aspirin 81 mg chewable tablet 2013-09 00:00: 00 Yes 81mg Take 1 Tab by mouth daily. [facility] ipratropium (ATROVENT) 0.02 % nebulizer solution 2013-09 00:00: 00 Yes .5mg Inhale 2.5 mL 4 (four) times daily. [facility] levalbutero l (XOPENEX) 0.31 mg/3 mL nebulizer solution 2013-09 00:00: 00 Yes .31mg Inhale 0.31 mg 3 (three) times daily. [facility] aspirin 81 mg chewable tablet 2013-09 00:00: 00 Yes 81mg Take 1 Tab by mouth daily. [facility] ipratropium (ATROVENT) 0.02 % nebulizer solution 2013-09 00:00: 00 Yes .5mg Inhale 2.5 mL 4 (four) times daily. [facility] levalbutero l (XOPENEX) 0.31 mg/3 mL nebulizer solution 2013-09 00:00: 00 Yes .31mg Inhale 0.31 mg 3 (three) times daily. [facility] 2013-09 00:00: 00 Yes 81mg Take 1 Tab by mouth daily. [facility] ipratropium (ATROVENT) 0.02 % nebulizer solution 2013-09 00:00: 00 Yes .5mg Inhale 2.5 mL 4 (four) times daily. [facility] levalbutero l (XOPENEX) 0.31 mg/3 mL nebulizer solution 2013-09 00:00: 00 Yes .31mg Inhale 0.31 mg 3 (three) times daily. [facility] aspirin 81 mg chewable tablet 2013-09 00:00: 00 Yes 81mg Take 1 Tab by mouth daily. [facility] (ATROVENT) 0.02 % nebulizer solution 2013-09 00:00: 00 Yes .5mg Inhale 2.5 mL 4 (four) times daily. [facility] (XOPENEX) 0.31 mg/3 mL nebulizer solution 2013-09 00:00: 00 Yes .31mg Inhale 0.31 mg 3 (three) times daily. [facility] aspirin 81 mg chewable tablet 2013-09 00:00: 00 Yes 81mg Take 1 Tab by mouth daily. [facility] ipratropium (ATROVENT) 0.02 % nebulizer solution 2013-09 00:00: 00 Yes .5mg Inhale 2.5 mL 4 (four) times daily. [facility] leval[facility] (XOPENEX) 0.31 mg/3 mL nebulizer solution 2013-09 00:00: 00 Yes .31mg Inhale 0.31 mg 3 (three) times daily. [facility] mg chewable tablet 2013-09 00:00: 00 Yes 81mg Take 1 Tab by mouth daily. [facility] ipratropium (ATROVENT) 0.02 % nebulizer solution 2013-09 00:00: 00 Yes .5mg Inhale 2.5 mL 4 (four) times daily. [facility] levalbutero l (XOPENEX) 0.31 mg/3 mL nebulizer solution 2013-09 00:00: 00 Yes .31mg Inhale 0.31 mg 3 (three) times daily. [facility] aspirin 81 mg chewable tablet 2013-09 00:00: 00 Yes 81mg Take 1 Tab by mouth daily. [facility] ipratropium (ATROVENT) 0.02 % nebulizer solution 2013-09 00:00: 00 Yes .5mg Inhale 2.5 mL 4 (four) times daily. [facility] levalbutero l (XOPENEX) 0.31 mg/3 mL nebulizer solution 2013-09 00:00: 00 Yes .31mg Inhale 0.31 mg 3 (three) times daily. [facility] aspirin 81 mg chewable tablet 2013-09 00:00: 00 Yes 81mg Take 1 Tab by mouth daily. [facility] ipratropium (ATROVENT) 0.02 % nebulizer solution 2013-09 00:00: 00 Yes .5mg Inhale 2.5 mL 4 (four) times daily. [facility] levalbutero l (XOPENEX) 0.31 mg/3 mL nebulizer solution 2013-09 00:00: 00 Yes .31mg Inhale 0.31 mg 3 (three) times daily. [facility] aspirin 81 mg chewable tablet 2013-09 00:00: 00 Yes 81mg Take 1 Tab by mouth daily. [facility] [facility] ipratropium (ATROVENT) 0.02 % nebulizer solution 2013-09 00:00: 00 Yes .5mg Inhale 2.5 mL 4 (four) times daily. [facility] levalbutero l (XOPENEX) 0.31 mg/3 mL nebulizer solution 2013-09 00:00: 00 Yes .31mg Inhale 0.31 mg 3 (three) times daily. [facility] aspirin 81 mg chewable tablet 2013-09 00:00: 00 Yes 81mg Take 1 Tab by mouth daily. [facility] ipratropium (ATROVENT) 0.02 % nebulizer solution 2013-09 00:00: 00 Yes .5mg Inhale 2.5 mL 4 (four) times daily. [facility] levalbutero l (XOPENEX) 0.31 mg/3 mL nebulizer solution 2013-09 00:00: 00 Yes .31mg Inhale 0.31 mg 3 (three) times daily. [facility] 2013-09 00:00: 00 Yes 81mg Take 1 Tab by mouth daily. [facility] ([facility] 0.02 % nebulizer solution 2013-09 00:00: 00 Yes .5mg Inhale 2.5 mL 4 (four) times daily. [facility] levalbutero l (XOPENEX) 0.31 mg/3 mL nebulizer solution 2013-09 00:00: 00 Yes .31mg Inhale 0.31 mg 3 (three) times daily. [facility] aspirin 81 mg chewable tablet 2013-09 00:00: 00 Yes 81mg Take 1 Tab by mouth daily. [facility] ([facility] 0.02 % nebulizer solution 2013-09 00:00: 00 Yes .5mg Inhale 2.5 mL 4 (four) times daily. [facility] levalbutero l (XOPENEX) 0.31 mg/3 mL nebulizer solution 2013-09 00:00: 00 Yes .31mg Inhale 0.31 mg 3 (three) times daily. [facility]able [facility] 2013-09 00:00: 00 Yes 81mg Take 1 Tab by mouth daily. [facility] ([facility]ENT) 0.02 % nebulizer solution 2013-09 00:00: 00 Yes .5mg Inhale 2.5 mL 4 (four) times daily. [facility] levalbutero l (XOPENEX) 0.31 mg/3 mL nebulizer solution 2013-09 00:00: 00 Yes .31mg Inhale 0.31 mg 3 (three) times daily. [facility] aspirin 81 mg chewable tablet 2013-09 00:00: 00 Yes 81mg Take 1 Tab by mouth daily. [facility] ipratropium (ATROVENT) 0.02 % nebulizer solution 2013-09 00:00: 00 Yes .5mg Inhale 2.5 mL 4 (four) times daily. [facility] levalbutero l (XOPENEX) 0.31 mg/3 mL nebulizer solution 2013-09 00:00: 00 Yes .31mg Inhale 0.31 mg 3 (three) times daily. [facility] aspirin 81 mg chewable tablet 2013-09 00:00: 00 Yes 81mg Take 1 Tab by mouth daily. [facility] ipratropium (ATROVENT) 0.02 % nebulizer solution 2013-09 00:00: 00 Yes .5mg Inhale 2.5 mL 4 (four) times daily. [facility] levalbutero l (XOPENEX) 0.31 mg/3 mL nebulizer solution 2013-09 00:00: 00 Yes .31mg Inhale 0.31 mg 3 (three) times daily. [facility] aspirin 81 mg chewable tablet 2013-09 00:00: 00 Yes 81mg Take 1 Tab by mouth daily. [facility] ipratropium (ATROVENT) 0.02 % nebulizer solution 2013-09 00:00: 00 Yes .5mg Inhale 2.5 mL 4 (four) times daily. [facility] levalbutero l (XOPENEX) 0.31 mg/3 mL nebulizer solution 2013-09 00:00: 00 Yes .31mg Inhale 0.31 mg 3 (three) times daily. [facility] aspirin 81 mg chewable tablet 2013-09 00:00: 00 Yes 81mg Take 1 Tab by mouth daily. [facility] ipratropium (ATROVENT) 0.02 % nebulizer solution 2013-09 00:00: 00 Yes .5mg Inhale 2.5 mL 4 (four) times daily. [facility] levalbutero l (XOPENEX) 0.31 mg/3 mL nebulizer solution 2013-09 00:00: 00 Yes .31mg Inhale 0.31 mg 3 (three) times daily. [facility] aspirin 81 mg chewable tablet 2013-09 00:00: 00 11-28 00:00 :00 No 81mg Take 1 Tab by mouth daily. [facility] ipratropium (ATROVENT) 0.02 % nebulizer solution 2013-09 00:00: 00 11-28 00:00 :00 No .5mg Inhale 2.5 mL 4 (four) times daily. [facility] levalbutero l (XOPENEX) 0.31 mg/3 mL nebulizer solution 2013-09 00:00: 00 11-28 00:00 :00 No .31mg Inhale 0.31 mg 3 (three) times daily. [facility] Immunizations Ordered Immunization Name Filled Immunization Name Date Status Comments Source Pneumococcal 20 Conjugate, PCV20 (Prevnar 20) 2022-12-12 00:00:00 Completed [facility] Pneumococcal 20 Conjugate, PCV20 (Prevnar 20) 2022-12-12 00:00:00 Completed [facility] Pneumococcal 20 Conjugate, PCV20 (Prevnar 20) 2022-12-12 00:00:00 Completed [facility] Pneumococcal 20 Conjugate, PCV20 (Prevnar 20) 2022-12-12 00:00:00 Completed [facility] Pneumococcal 20 Conjugate, PCV20 (Prevnar 20) 2022-12-12 00:00:00 Completed [facility] Pneumococcal 20 Conjugate, PCV20 (Prevnar 20) 2022-12-12 00:00:00 Completed [facility] Pneumococcal 20 Conjugate, PCV20 (Prevnar 20) 2022-12-12 00:00:00 Completed [facility] Pneumococcal 20 Conjugate, PCV20 (Prevnar 20) 2022-12-12 00:00:00 Completed [facility] Pneumococcal 20 Conjugate, PCV20 (Prevnar 20) 2022-12-12 00:00:00 Completed [facility] Pneumococcal 20 Conjugate, PCV20 (Prevnar 20) 2022-12-12 00:00:00 Completed [facility] Pneumococcal 20 Conjugate, PCV20 (Prevnar 20) 2022-12-12 00:00:00 Completed [facility] Pneumococcal 20 Conjugate, PCV20 (Prevnar 20) 2022-12-12 00:00:00 Completed [facility] Pneumococcal 20 Conjugate, PCV20 (Prevnar 20) 2022-12-12 00:00:00 Completed [facility] Pneumococcal 20 Conjugate, PCV20 (Prevnar 20) 2022-12-12 00:00:00 Completed [facility] Pneumococcal 20 Conjugate, PCV20 (Prevnar 20) 2022-12-12 00:00:00 Completed [facility] Pneumococcal 20 Conjugate, PCV20 (Prevnar 20) 2022-12-12 00:00:00 Completed [facility] Pneumococcal 20 Conjugate, PCV20 (Prevnar 20) 2022-12-12 00:00:00 Completed [facility] Pneumococcal 20 Conjugate, PCV20 (Prevnar 20) 2022-12-12 00:00:00 Completed [facility] Pneumococcal 20 Conjugate, PCV20 (Prevnar 20) 2022-12-12 00:00:00 Completed [facility] Pneumococcal 20 Conjugate, PCV20 (Prevnar 20) 2022-12-12 00:00:00 Completed [facility] Pneumococcal 20 Conjugate, PCV20 (Prevnar 20) 2022-12-12 00:00:00 Completed [facility] Pneumococcal 20 Conjugate, PCV20 (Prevnar 20) 2022-12-12 00:00:00 Completed [facility] Pneumococcal 20 Conjugate, PCV20 (Prevnar 20) 2022-12-12 00:00:00 Completed [facility] Pneumococcal 20 Conjugate, PCV20 (Prevnar 20) 2022-12-12 00:00:00 Completed [facility] Pneumococcal 20 Conjugate, PCV20 (Prevnar 20) 2022-12-12 00:00:00 Completed [facility] Pneumococcal 20 Conjugate, PCV20 (Prevnar 20) 2022-12-12 00:00:00 Completed [facility] Pneumococcal 20 Conjugate, PCV20 (Prevnar 20) 2022-12-12 00:00:00 Completed [facility] Pneumococcal 20 Conjugate, PCV20 (Prevnar 20) 2022-12-12 00:00:00 Completed [facility] Pneumococcal 20 Conjugate, PCV20 (Prevnar 20) 2022-12-12 00:00:00 Completed [facility] Pneumococcal 20 Conjugate, PCV20 (Prevnar 20) 2022-12-12 00:00:00 Completed [facility] Pneumococcal 20 Conjugate, PCV20 (Prevnar 20) 2022-12-12 00:00:00 Completed [facility] Pneumococcal 20 Conjugate, PCV20 (Prevnar 20) 2022-12-12 00:00:00 Completed [facility] Pneumococcal 20 Conjugate, PCV20 (Prevnar 20) 2022-12-12 00:00:00 Completed [facility] Pneumococcal 20 Conjugate, PCV20 (Prevnar 20) 2022-12-12 00:00:00 Completed [facility] Pneumococcal 20 Conjugate, PCV20 (Prevnar 20) 2022-12-12 00:00:00 Completed [facility] Pneumococcal 20 Conjugate, PCV20 (Prevnar 20) 2022-12-12 00:00:00 Completed [facility] SARS-COV-2 COVID-19 MODERNA 12+ YRS VACCINE 2020-11-23 00:00:00 Completed [facility] SARS-COV-2 COVID-19 MODERNA VACCINE 2020-11-23 00:00:00 Completed [facility] SARS-COV-2 COVID-19 MODERNA 12+ YRS VACCINE 2020-11-23 00:00:00 Completed [facility] SARS-COV-2 COVID-19 MODERNA 12+ YRS VACCINE 2020-11-23 00:00:00 Completed [facility] SARS-COV-2 COVID-19 MODERNA 12+ YRS VACCINE 2020-11-23 00:00:00 Completed [facility] SARS-COV-2 COVID-19 MODERNA 12+ YRS VACCINE 2020-11-23 00:00:00 Completed [facility] SARS-COV-2 COVID-19 MODERNA 12+ YRS VACCINE 2020-11-23 00:00:00 Completed [facility] SARS-COV-2 COVID-19 MODERNA VACCINE 2020-11-23 00:00:00 Completed [facility] SARS-COV-2 COVID-19 MODERNA 12+ YRS VACCINE 2020-11-23 00:00:00 Completed [facility] SARS-COV-2 COVID-19 MODERNA 12+ YRS VACCINE 2020-11-23 00:00:00 Completed [facility] SARS-COV-2 COVID-19 MODERNA 12+ YRS VACCINE 2020-11-23 00:00:00 Completed [facility] SARS-COV-2 COVID-19 MODERNA 12+ YRS VACCINE 2020-11-23 00:00:00 Completed [facility] SARS-COV-2 COVID-19 MODERNA 12+ YRS VACCINE 2020-11-23 00:00:00 Completed [facility] SARS-COV-2 COVID-19 MODERNA 12+ YRS VACCINE 2020-11-23 00:00:00 Completed [facility] SARS-COV-2 COVID-19 MODERNA VACCINE 2020-11-23 00:00:00 Completed [facility] SARS-COV-2 COVID-19 MODERNA 12+ YRS VACCINE 2020-11-23 00:00:00 Completed [facility] SARS-COV-2 COVID-19 MODERNA 12+ YRS VACCINE 2020-11-23 00:00:00 Completed [facility] SARS-COV-2 COVID-19 MODERNA 12+ YRS VACCINE 2020-11-23 00:00:00 Completed [facility] SARS-COV-2 COVID-19 MODERNA 12+ YRS VACCINE 2020-11-23 00:00:00 Completed [facility] SARS-COV-2 COVID-19 MODERNA 12+ YRS VACCINE 2020-11-23 00:00:00 Completed [facility] SARS-COV-2 COVID-19 MODERNA 12+ YRS VACCINE 2020-11-23 00:00:00 Completed [facility] SARS-COV-2 COVID-19 MODERNA 12+ YRS VACCINE 2020-11-23 00:00:00 Completed [facility] SARS-COV-2 COVID-19 MODERNA 12+ YRS VACCINE 2020-11-23 00:00:00 Completed [facility] SARS-COV-2 COVID-19 MODERNA 12+ YRS VACCINE 2020-11-23 00:00:00 Completed [facility] SARS-COV-2 COVID-19 MODERNA 12+ YRS VACCINE 2020-11-23 00:00:00 Completed [facility] SARS-COV-2 COVID-19 MODERNA 12+ YRS VACCINE 2020-11-23 00:00:00 Completed [facility] SARS-COV-2 COVID-19 MODERNA 12+ YRS VACCINE 2020-11-23 00:00:00 Completed [facility] SARS-COV-2 COVID-19 MODERNA 12+ YRS VACCINE 2020-11-23 00:00:00 Completed [facility] SARS-COV-2 COVID-19 MODERNA 12+ YRS VACCINE 2020-11-23 00:00:00 Completed [facility] SARS-COV-2 COVID-19 MODERNA 12+ YRS VACCINE 2020-11-23 00:00:00 Completed [facility] SARS-COV-2 COVID-19 MODERNA 12+ YRS VACCINE 2020-11-23 00:00:00 Completed [facility] SARS-COV-2 COVID-19 MODERNA 12+ YRS VACCINE 2020-11-23 00:00:00 Completed [facility] SARS-COV-2 COVID-19 MODERNA 12+ YRS VACCINE 2020-11-23 00:00:00 Completed [facility] SARS-COV-2 COVID-19 MODERNA 12+ YRS VACCINE 2020-11-23 00:00:00 Completed [facility] SARS-COV-2 COVID-19 MODERNA VACCINE 2020-11-23 00:00:00 Completed [facility] SARS-COV-2 COVID-19 MODERNA 12+ YRS VACCINE 2020-11-23 00:00:00 Completed [facility] SARS-COV-2 COVID-19 MODERNA 12+ YRS VACCINE 2020-11-23 00:00:00 Completed [facility] SARS-COV-2 COVID-19 MODERNA 12+ YRS VACCINE 2020-11-23 00:00:00 Completed [facility] SARS-COV-2 COVID-19 MODERNA 12+ YRS VACCINE 2020-11-23 00:00:00 Completed [facility] SARS-COV-2 COVID-19 MODERNA 12+ YRS VACCINE 2020-11-23 00:00:00 Completed [facility] SARS-COV-2 COVID-19 MODERNA VACCINE 2020-11-23 00:00:00 Completed [facility] SARS-COV-2 COVID-19 MODERNA 12+ YRS VACCINE 2020-11-23 00:00:00 Completed [facility] SARS-COV-2 COVID-19 MODERNA 12+ YRS VACCINE 2020-11-23 00:00:00 Completed [facility] SARS-COV-2 COVID-19 MODERNA 12+ YRS VACCINE 2020-11-23 00:00:00 Completed [facility] SARS-COV-2 COVID-19 MODERNA 12+ YRS VACCINE 2020-11-23 00:00:00 Completed [facility] SARS-COV-2 COVID-19 MODERNA 12+ YRS VACCINE 2020-11-23 00:00:00 Completed [facility] SARS-COV-2 COVID-19 MODERNA VACCINE 2020-11-23 00:00:00 Completed [facility] SARS-COV-2 COVID-19 MODERNA VACCINE 2020-11-23 00:00:00 Completed [facility] SARS-COV-2 COVID-19 MODERNA VACCINE 2020-11-23 00:00:00 Completed [facility] SARS-COV-2 COVID-19 MODERNA VACCINE 2020-11-23 00:00:00 Completed [facility] SARS-COV-2 COVID-19 MODERNA VACCINE 2020-11-23 00:00:00 Completed [facility] SARS-COV-2 COVID-19 MODERNA VACCINE 2020-11-23 00:00:00 Completed [facility] SARS-COV-2 COVID-19 MODERNA VACCINE 2020-11-23 00:00:00 Completed [facility] SARS-COV-2 COVID-19 MODERNA VACCINE 2020-11-23 00:00:00 Completed [facility] SARS-COV-2 COVID-19 MODERNA VACCINE 2020-11-23 00:00:00 Completed [facility] SARS-COV-2 COVID-19 MODERNA VACCINE 2020-11-23 00:00:00 Completed [facility] SARS-COV-2 COVID-19 MODERNA VACCINE 2020-11-23 00:00:00 Completed [facility] SARS-COV-2 COVID-19 MODERNA VACCINE 2020-11-23 00:00:00 Completed [facility] SARS-COV-2 COVID-19 MODERNA VACCINE 2020-11-23 00:00:00 Completed [facility] SARS-COV-2 COVID-19 MODERNA VACCINE 2020-11-23 00:00:00 Completed [facility] SARS-COV-2 COVID-19 MODERNA 12+ YRS VACCINE 2020-11-23 00:00:00 Completed [facility] SARS-COV-2 COVID-19 MODERNA 12+ YRS VACCINE 2020-11-23 00:00:00 Completed [facility] SARS-COV-2 COVID-19 MODERNA 12+ YRS VACCINE 2020-11-23 00:00:00 Completed [facility] SARS-COV-2 COVID-19 MODERNA 12+ YRS VACCINE 2020-11-23 00:00:00 Completed [facility] SARS-COV-2 COVID-19 MODERNA VACCINE 2020-11-23 00:00:00 Completed [facility] SARS-COV-2 COVID-19 MODERNA 12+ YRS VACCINE 2020-11-23 00:00:00 Completed [facility] SARS-COV-2 COVID-19 MODERNA 12+ YRS VACCINE 2020-11-23 00:00:00 Completed [facility] SARS-COV-2 COVID-19 MODERNA 12+ YRS VACCINE 2020-11-23 00:00:00 Completed [facility] SARS-COV-2 COVID-19 MODERNA VACCINE 2020-10-26 00:00:00 Completed [facility] SARS-COV-2 COVID-19 MODERNA 12+ YRS VACCINE 2020-10-26 00:00:00 Completed [facility] SARS-COV-2 COVID-19 MODERNA 12+ YRS VACCINE 2020-10-26 00:00:00 Completed [facility] SARS-COV-2 COVID-19 MODERNA 12+ YRS VACCINE 2020-10-26 00:00:00 Completed [facility] SARS-COV-2 COVID-19 MODERNA 12+ YRS VACCINE 2020-10-26 00:00:00 Completed [facility] SARS-COV-2 COVID-19 MODERNA 12+ YRS VACCINE 2020-10-26 00:00:00 Completed [facility] SARS-COV-2 COVID-19 MODERNA VACCINE 2020-10-26 00:00:00 Completed [facility] SARS-COV-2 COVID-19 MODERNA 12+ YRS VACCINE 2020-10-26 00:00:00 Completed [facility] SARS-COV-2 COVID-19 MODERNA 12+ YRS VACCINE 2020-10-26 00:00:00 Completed [facility] SARS-COV-2 COVID-19 MODERNA 12+ YRS VACCINE 2020-10-26 00:00:00 Completed [facility] SARS-COV-2 COVID-19 MODERNA 12+ YRS VACCINE 2020-10-26 00:00:00 Completed [facility] SARS-COV-2 COVID-19 MODERNA 12+ YRS VACCINE 2020-10-26 00:00:00 Completed [facility] SARS-COV-2 COVID-19 MODERNA 12+ YRS VACCINE 2020-10-26 00:00:00 Completed [facility] SARS-COV-2 COVID-19 MODERNA 12+ YRS VACCINE 2020-10-26 00:00:00 Completed [facility] SARS-COV-2 COVID-19 MODERNA VACCINE 2020-10-26 00:00:00 Completed [facility] SARS-COV-2 COVID-19 MODERNA 12+ YRS VACCINE 2020-10-26 00:00:00 Completed [facility] SARS-COV-2 COVID-19 MODERNA 12+ YRS VACCINE 2020-10-26 00:00:00 Completed [facility] SARS-COV-2 COVID-19 MODERNA 12+ YRS VACCINE 2020-10-26 00:00:00 Completed [facility] SARS-COV-2 COVID-19 MODERNA 12+ YRS VACCINE 2020-10-26 00:00:00 Completed [facility] SARS-COV-2 COVID-19 MODERNA 12+ YRS VACCINE 2020-10-26 00:00:00 Completed [facility] SARS-COV-2 COVID-19 MODERNA 12+ YRS VACCINE 2020-10-26 00:00:00 Completed [facility] SARS-COV-2 COVID-19 MODERNA 12+ YRS VACCINE 2020-10-26 00:00:00 Completed [facility] SARS-COV-2 COVID-19 MODERNA 12+ YRS VACCINE 2020-10-26 00:00:00 Completed [facility] SARS-COV-2 COVID-19 MODERNA 12+ YRS VACCINE 2020-10-26 00:00:00 Completed [facility] SARS-COV-2 COVID-19 MODERNA 12+ YRS VACCINE 2020-10-26 00:00:00 Completed [facility] SARS-COV-2 COVID-19 MODERNA 12+ YRS VACCINE 2020-10-26 00:00:00 Completed [facility] SARS-COV-2 COVID-19 MODERNA 12+ YRS VACCINE 2020-10-26 00:00:00 Completed [facility] SARS-COV-2 COVID-19 MODERNA 12+ YRS VACCINE 2020-10-26 00:00:00 Completed [facility] SARS-COV-2 COVID-19 MODERNA 12+ YRS VACCINE 2020-10-26 00:00:00 Completed [facility] SARS-COV-2 COVID-19 MODERNA 12+ YRS VACCINE 2020-10-26 00:00:00 Completed [facility] SARS-COV-2 COVID-19 MODERNA 12+ YRS VACCINE 2020-10-26 00:00:00 Completed [facility] SARS-COV-2 COVID-19 MODERNA 12+ YRS VACCINE 2020-10-26 00:00:00 Completed [facility] SARS-COV-2 COVID-19 MODERNA 12+ YRS VACCINE 2020-10-26 00:00:00 Completed [facility] SARS-COV-2 COVID-19 MODERNA 12+ YRS VACCINE 2020-10-26 00:00:00 Completed [facility] SARS-COV-2 COVID-19 MODERNA VACCINE 2020-10-26 00:00:00 Completed [facility] SARS-COV-2 COVID-19 MODERNA 12+ YRS VACCINE 2020-10-26 00:00:00 Completed [facility] SARS-COV-2 COVID-19 MODERNA 12+ YRS VACCINE 2020-10-26 00:00:00 Completed [facility] SARS-COV-2 COVID-19 MODERNA 12+ YRS VACCINE 2020-10-26 00:00:00 Completed [facility] SARS-COV-2 COVID-19 MODERNA 12+ YRS VACCINE 2020-10-26 00:00:00 Completed [facility] SARS-COV-2 COVID-19 MODERNA 12+ YRS VACCINE 2020-10-26 00:00:00 Completed [facility] SARS-COV-2 COVID-19 MODERNA VACCINE 2020-10-26 00:00:00 Completed [facility] SARS-COV-2 COVID-19 MODERNA 12+ YRS VACCINE 2020-10-26 00:00:00 Completed [facility] SARS-COV-2 COVID-19 MODERNA 12+ YRS VACCINE 2020-10-26 00:00:00 Completed [facility] SARS-COV-2 COVID-19 MODERNA 12+ YRS VACCINE 2020-10-26 00:00:00 Completed [facility] SARS-COV-2 COVID-19 MODERNA 12+ YRS VACCINE 2020-10-26 00:00:00 Completed [facility] SARS-COV-2 COVID-19 MODERNA 12+ YRS VACCINE 2020-10-26 00:00:00 Completed [facility] SARS-COV-2 COVID-19 MODERNA VACCINE 2020-10-26 00:00:00 Completed [facility] SARS-COV-2 COVID-19 MODERNA VACCINE 2020-10-26 00:00:00 Completed [facility] SARS-COV-2 COVID-19 MODERNA VACCINE 2020-10-26 00:00:00 Completed [facility] SARS-COV-2 COVID-19 MODERNA VACCINE 2020-10-26 00:00:00 Completed [facility] SARS-COV-2 COVID-19 MODERNA VACCINE 2020-10-26 00:00:00 Completed [facility] SARS-COV-2 COVID-19 MODERNA VACCINE 2020-10-26 00:00:00 Completed [facility] SARS-COV-2 COVID-19 MODERNA VACCINE 2020-10-26 00:00:00 Completed [facility] SARS-COV-2 COVID-19 MODERNA VACCINE 2020-10-26 00:00:00 Completed [facility] SARS-COV-2 COVID-19 MODERNA VACCINE 2020-10-26 00:00:00 Completed [facility] SARS-COV-2 COVID-19 MODERNA VACCINE 2020-10-26 00:00:00 Completed [facility] SARS-COV-2 COVID-19 MODERNA VACCINE 2020-10-26 00:00:00 Completed [facility] SARS-COV-2 COVID-19 MODERNA VACCINE 2020-10-26 00:00:00 Completed [facility] SARS-COV-2 COVID-19 MODERNA VACCINE 2020-10-26 00:00:00 Completed [facility] SARS-COV-2 COVID-19 MODERNA VACCINE 2020-10-26 00:00:00 Completed [facility] SARS-COV-2 COVID-19 MODERNA 12+ YRS VACCINE 2020-10-26 00:00:00 Completed [facility] SARS-COV-2 COVID-19 MODERNA 12+ YRS VACCINE 2020-10-26 00:00:00 Completed [facility] SARS-COV-2 COVID-19 MODERNA 12+ YRS VACCINE 2020-10-26 00:00:00 Completed [facility] SARS-COV-2 COVID-19 MODERNA 12+ YRS VACCINE 2020-10-26 00:00:00 Completed [facility] SARS-COV-2 COVID-19 MODERNA VACCINE 2020-10-26 00:00:00 Completed [facility] SARS-COV-2 COVID-19 MODERNA 12+ YRS VACCINE 2020-10-26 00:00:00 Completed [facility] SARS-COV-2 COVID-19 MODERNA 12+ YRS VACCINE 2020-10-26 00:00:00 Completed [facility] SARS-COV-2 COVID-19 MODERNA 12+ YRS VACCINE 2020-10-26 00:00:00 Completed [facility] Td 2019-02-16 00:00:00 Completed [facility] TD, NOS 2019-02-16 00:00:00 Completed [facility] TD, NOS 2019-02-16 00:00:00 Completed [facility] TD, NOS 2019-02-16 00:00:00 Completed [facility] TD, NOS 2019-02-16 00:00:00 Completed [facility] TD, NOS 2019-02-16 00:00:00 Completed [facility] Td 2019-02-16 00:00:00 Completed [facility] TD, NOS 2019-02-16 00:00:00 Completed [facility] TD, NOS 2019-02-16 00:00:00 Completed [facility] TD, NOS 2019-02-16 00:00:00 Completed [facility] TD, NOS 2019-02-16 00:00:00 Completed [facility] TD, NOS 2019-02-16 00:00:00 Completed [facility] TD, NOS 2019-02-16 00:00:00 Completed [facility] TD, NOS 2019-02-16 00:00:00 Completed [facility] Td 2019-02-16 00:00:00 Completed [facility] TD, NOS 2019-02-16 00:00:00 Completed [facility] TD, NOS 2019-02-16 00:00:00 Completed [facility] TD, NOS 2019-02-16 00:00:00 Completed [facility] TD, NOS 2019-02-16 00:00:00 Completed [facility] Td 2019-02-16 00:00:00 Completed [facility] TD, NOS 2019-02-16 00:00:00 Completed [facility] TD, NOS 2019-02-16 00:00:00 Completed [facility] TD, NOS 2019-02-16 00:00:00 Completed [facility] TD, NOS 2019-02-16 00:00:00 Completed [facility] Td 2019-02-16 00:00:00 Completed [facility] TD, NOS 2019-02-16 00:00:00 Completed [facility] TD, NOS 2019-02-16 00:00:00 Completed [facility] TD, NOS 2019-02-16 00:00:00 Completed [facility] TD, NOS 2019-02-16 00:00:00 Completed [facility] TD, NOS 2019-02-16 00:00:00 Completed [facility] TD, NOS 2019-02-16 00:00:00 Completed [facility] TD, NOS 2019-02-16 00:00:00 Completed [facility] Td 2019-02-16 00:00:00 Completed [facility] TD, NOS 2019-02-16 00:00:00 Completed [facility] TD, NOS 2019-02-16 00:00:00 Completed [facility] TD, NOS 2019-02-16 00:00:00 Completed [facility] TD, NOS 2019-02-16 00:00:00 Completed [facility] Td 2019-02-16 00:00:00 Completed [facility] TD, NOS 2019-02-16 00:00:00 Completed [facility] TD, NOS 2019-02-16 00:00:00 Completed [facility] TD, NOS 2019-02-16 00:00:00 Completed [facility] TD, NOS 2019-02-16 00:00:00 Completed [facility] Td 2019-02-16 00:00:00 Completed [facility] TD, NOS 2019-02-16 00:00:00 Completed [facility] TD, NOS 2019-02-16 00:00:00 Completed [facility] TD, NOS 2019-02-16 00:00:00 Completed [facility] TD, NOS 2019-02-16 00:00:00 Completed [facility] TD, NOS 2019-02-16 00:00:00 Completed [facility] TD, NOS 2019-02-16 00:00:00 Completed [facility] Td 2019-02-16 00:00:00 Completed [facility] Td 2019-02-16 00:00:00 Completed [facility] Td 2019-02-16 00:00:00 Completed [facility] Td 2019-02-16 00:00:00 Completed [facility] Td 2019-02-16 00:00:00 Completed [facility] Td 2019-02-16 00:00:00 Completed [facility] Td 2019-02-16 00:00:00 Completed [facility] Td 2019-02-16 00:00:00 Completed [facility] Td 2019-02-16 00:00:00 Completed [facility] Td 2019-02-16 00:00:00 Completed [facility] Td 2019-02-16 00:00:00 Completed [facility] Td 2019-02-16 00:00:00 Completed [facility] Td 2019-02-16 00:00:00 Completed [facility] Td 2019-02-16 00:00:00 Completed [facility] TD, NOS 2019-02-16 00:00:00 Completed [facility] TD, NOS 2019-02-16 00:00:00 Completed [facility] TD, NOS 2019-02-16 00:00:00 Completed [facility] TD, NOS 2019-02-16 00:00:00 Completed [facility] Td 2019-02-16 00:00:00 Completed [facility] TD, NOS 2019-02-16 00:00:00 Completed [facility] TD, NOS 2019-02-16 00:00:00 Completed [facility] TD, NOS 2019-02-16 00:00:00 Completed [facility] Pneumococcal Polysaccharide, PPSV23 (PNEUMOVAX) 2014-09-05 00:00:00 Completed [facility] Influenza Virus Vaccine Quad IM 3+ YRS 2014-09-05 00:00:00 Completed [facility] Pneumococcal Polysaccharide, PPSV23 (PNEUMOVAX) 2014-09-05 00:00:00 Completed [facility] Influenza Virus Vaccine Quad IM 3+ YRS 2014-09-05 00:00:00 Completed [facility] Pneumococcal Polysaccharide, PPSV23 (PNEUMOVAX) 2014-09-05 00:00:00 Completed [facility] Influenza Virus Vaccine Quad IM 3+ YRS 2014-09-05 00:00:00 Completed [facility] Pneumococcal Polysaccharide, PPSV23 (PNEUMOVAX) 2014-09-05 00:00:00 Completed [facility] Influenza Virus Vaccine Quad IM 3+ YRS 2014-09-05 00:00:00 Completed [facility] Pneumococcal Polysaccharide, PPSV23 (PNEUMOVAX) 2014-09-05 00:00:00 Completed [facility] Influenza Virus Vaccine Quad IM 3+ YRS 2014-09-05 00:00:00 Completed [facility] Pneumococcal Polysaccharide, PPSV23 (PNEUMOVAX) 2014-09-05 00:00:00 Completed [facility] Influenza Virus Vaccine Quad IM 3+ YRS 2014-09-05 00:00:00 Completed [facility] Pneumococcal Polysaccharide, PPSV23 (PNEUMOVAX) 2014-09-05 00:00:00 Completed [facility] Influenza Virus Vaccine Quad IM 3+ YRS 2014-09-05 00:00:00 Completed [facility] Pneumococcal Polysaccharide, PPSV23 (PNEUMOVAX) 2014-09-05 00:00:00 Completed [facility] Influenza Virus Vaccine Quad IM 3+ YRS 2014-09-05 00:00:00 Completed [facility] Pneumococcal Polysaccharide, PPSV23 (PNEUMOVAX) 2014-09-05 00:00:00 Completed [facility] Influenza Virus Vaccine Quad IM 3+ YRS 2014-09-05 00:00:00 Completed [facility] Pneumococcal Polysaccharide, PPSV23 (PNEUMOVAX) 2014-09-05 00:00:00 Completed [facility] Influenza Virus Vaccine Quad IM 3+ YRS 2014-09-05 00:00:00 Completed [facility] Pneumococcal Polysaccharide, PPSV23 (PNEUMOVAX) 2014-09-05 00:00:00 Completed [facility] Influenza Virus Vaccine Quad IM 3+ YRS 2014-09-05 00:00:00 Completed [facility] Pneumococcal Polysaccharide, PPSV23 (PNEUMOVAX) 2014-09-05 00:00:00 Completed [facility] Influenza Virus Vaccine Quad IM 3+ YRS 2014-09-05 00:00:00 Completed [facility] Pneumococcal Polysaccharide, PPSV23 (PNEUMOVAX) 2014-09-05 00:00:00 Completed [facility] Influenza Virus Vaccine Quad IM 3+ YRS 2014-09-05 00:00:00 Completed [facility] Influenza Virus Vaccine Quad IM 3+ YRS 2014-09-05 00:00:00 Completed [facility] Pneumococcal Polysaccharide, PPSV23 (PNEUMOVAX) 2014-09-05 00:00:00 Completed [facility] Pneumococcal Polysaccharide, PPSV23 (PNEUMOVAX) 2014-09-05 00:00:00 Completed [facility] Influenza Virus Vaccine Quad IM 3+ YRS 2014-09-05 00:00:00 Completed [facility] Pneumococcal Polysaccharide, PPSV23 (PNEUMOVAX) 2014-09-05 00:00:00 Completed [facility] Influenza Virus Vaccine Quad IM 3+ YRS 2014-09-05 00:00:00 Completed [facility] Pneumococcal Polysaccharide, PPSV23 (PNEUMOVAX) 2014-09-05 00:00:00 Completed [facility] Influenza Virus Vaccine Quad IM 3+ YRS 2014-09-05 00:00:00 Completed [facility] Pneumococcal Polysaccharide, PPSV23 (PNEUMOVAX) 2014-09-05 00:00:00 Completed [facility] Influenza Virus Vaccine Quad IM 3+ YRS 2014-09-05 00:00:00 Completed [facility] Pneumococcal Polysaccharide, PPSV23 (PNEUMOVAX) 2014-09-05 00:00:00 Completed [facility] Influenza Virus Vaccine Quad IM 3+ YRS 2014-09-05 00:00:00 Completed [facility] Pneumococcal Polysaccharide, PPSV23 (PNEUMOVAX) 2014-09-05 00:00:00 Completed [facility] Influenza Virus Vaccine Quad IM 3+ YRS 2014-09-05 00:00:00 Completed [facility] Pneumococcal Polysaccharide, PPSV23 (PNEUMOVAX) 2014-09-05 00:00:00 Completed [facility] Influenza Virus Vaccine Quad IM 3+ YRS 2014-09-05 00:00:00 Completed [facility] Pneumococcal Polysaccharide, PPSV23 (PNEUMOVAX) 2014-09-05 00:00:00 Completed [facility] Influenza Virus Vaccine Quad IM 3+ YRS 2014-09-05 00:00:00 Completed [facility] Pneumococcal Polysaccharide, PPSV23 (PNEUMOVAX) 2014-09-05 00:00:00 Completed [facility] Influenza Virus Vaccine Quad IM 3+ YRS 2014-09-05 00:00:00 Completed [facility] Pneumococcal Polysaccharide, PPSV23 (PNEUMOVAX) 2014-09-05 00:00:00 Completed [facility] Influenza Virus Vaccine Quad IM 3+ YRS 2014-09-05 00:00:00 Completed [facility] Pneumococcal Polysaccharide, PPSV23 (PNEUMOVAX) 2014-09-05 00:00:00 Completed [facility] Influenza Virus Vaccine Quad IM 3+ YRS 2014-09-05 00:00:00 Completed [facility] Pneumococcal Polysaccharide, PPSV23 (PNEUMOVAX) 2014-09-05 00:00:00 Completed [facility] Influenza Virus Vaccine Quad IM 3+ YRS 2014-09-05 00:00:00 Completed [facility] Pneumococcal Polysaccharide, PPSV23 (PNEUMOVAX) 2014-09-05 00:00:00 Completed [facility] Influenza Virus Vaccine Quad IM 3+ YRS 2014-09-05 00:00:00 Completed [facility] Pneumococcal Polysaccharide, PPSV23 (PNEUMOVAX) 2014-09-05 00:00:00 Completed [facility] Influenza Virus Vaccine Quad IM 3+ YRS 2014-09-05 00:00:00 Completed [facility] Pneumococcal Polysaccharide, PPSV23 (PNEUMOVAX) 2014-09-05 00:00:00 Completed [facility] Influenza Virus Vaccine Quad IM 3+ YRS 2014-09-05 00:00:00 Completed [facility] Pneumococcal Polysaccharide, PPSV23 (PNEUMOVAX) 2014-09-05 00:00:00 Completed [facility] Influenza Virus Vaccine Quad IM 3+ YRS 2014-09-05 00:00:00 Completed [facility] Pneumococcal Polysaccharide, PPSV23 (PNEUMOVAX) 2014-09-05 00:00:00 Completed [facility] Influenza Virus Vaccine Quad IM 3+ YRS 2014-09-05 00:00:00 Completed [facility] Influenza Virus Vaccine Quad IM 3+ YRS 2014-09-05 00:00:00 Completed [facility] Pneumococcal Polysaccharide, PPSV23 (PNEUMOVAX) 2014-09-05 00:00:00 Completed [facility] Pneumococcal Polysaccharide, PPSV23 (PNEUMOVAX) 2014-09-05 00:00:00 Completed [facility] Influenza Virus Vaccine Quad IM 3+ YRS 2014-09-05 00:00:00 Completed [facility] Pneumococcal Polysaccharide, PPSV23 (PNEUMOVAX) 2014-09-05 00:00:00 Completed [facility] Influenza Virus Vaccine Quad IM 3+ YRS 2014-09-05 00:00:00 Completed [facility] Pneumococcal Polysaccharide, PPSV23 (PNEUMOVAX) 2014-09-05 00:00:00 Completed [facility] Influenza Virus Vaccine Quad IM 3+ YRS 2014-09-05 00:00:00 Completed [facility] Pneumococcal Polysaccharide, PPSV23 (PNEUMOVAX) 2014-09-05 00:00:00 Completed [facility] Influenza Virus Vaccine Quad IM 3+ YRS 2014-09-05 00:00:00 Completed [facility] Pneumococcal Polysaccharide, PPSV23 (PNEUMOVAX) 2014-09-05 00:00:00 Completed [facility] Influenza Virus Vaccine Quad IM 3+ YRS 2014-09-05 00:00:00 Completed [facility] Pneumococcal Polysaccharide, PPSV23 (PNEUMOVAX) 2014-09-05 00:00:00 Completed [facility] Influenza Virus Vaccine Quad IM 3+ YRS 2014-09-05 00:00:00 Completed [facility] Pneumococcal Polysaccharide, PPSV23 (PNEUMOVAX) 2014-09-05 00:00:00 Completed [facility] Influenza Virus Vaccine Quad IM 3+ YRS 2014-09-05 00:00:00 Completed [facility] Pneumococcal Polysaccharide, PPSV23 (PNEUMOVAX) 2014-09-05 00:00:00 Completed [facility] Influenza Virus Vaccine Quad IM 3+ YRS 2014-09-05 00:00:00 Completed [facility] Pneumococcal Polysaccharide, PPSV23 (PNEUMOVAX) 2014-09-05 00:00:00 Completed [facility] Influenza Virus Vaccine Quad IM 3+ YRS 2014-09-05 00:00:00 Completed [facility] Pneumococcal Polysaccharide, PPSV23 (PNEUMOVAX) 2014-09-05 00:00:00 Completed [facility] Influenza Virus Vaccine Quad IM 3+ YRS 2014-09-05 00:00:00 Completed [facility] Pneumococcal Polysaccharide, PPSV23 (PNEUMOVAX) 2014-09-05 00:00:00 Completed [facility] Influenza Virus Vaccine Quad IM 3+ YRS 2014-09-05 00:00:00 Completed [facility] Pneumococcal Polysaccharide, PPSV23 (PNEUMOVAX) 2014-09-05 00:00:00 Completed [facility] Influenza Virus Vaccine Quad IM 3+ YRS 2014-09-05 00:00:00 Completed [facility] Pneumococcal Polysaccharide, PPSV23 (PNEUMOVAX) 2014-09-05 00:00:00 Completed [facility] Influenza Virus Vaccine Quad IM 3+ YRS 2014-09-05 00:00:00 Completed [facility] Pneumococcal Polysaccharide, PPSV23 (PNEUMOVAX) 2014-09-05 00:00:00 Completed [facility] Influenza Virus Vaccine Quad IM 3+ YRS 2014-09-05 00:00:00 Completed [facility] Pneumococcal Polysaccharide, PPSV23 (PNEUMOVAX) 2014-09-05 00:00:00 Completed [facility] Influenza Virus Vaccine Quad IM 3+ YRS 2014-09-05 00:00:00 Completed [facility] Pneumococcal Polysaccharide, PPSV23 (PNEUMOVAX) 2014-09-05 00:00:00 Completed [facility] Influenza Virus Vaccine Quad IM 3+ YRS 2014-09-05 00:00:00 Completed [facility] Pneumococcal Polysaccharide, PPSV23 (PNEUMOVAX) 2014-09-05 00:00:00 Completed [facility] Influenza Virus Vaccine Quad IM 3+ YRS 2014-09-05 00:00:00 Completed [facility] Pneumococcal Polysaccharide, PPSV23 (PNEUMOVAX) 2014-09-05 00:00:00 Completed [facility] Influenza Virus Vaccine Quad IM 3+ YRS 2014-09-05 00:00:00 Completed [facility] Pneumococcal Polysaccharide, PPSV23 (PNEUMOVAX) 2014-09-05 00:00:00 Completed [facility] Influenza Virus Vaccine Quad IM 3+ YRS 2014-09-05 00:00:00 Completed [facility] Pneumococcal Polysaccharide, PPSV23 (PNEUMOVAX) 2014-09-05 00:00:00 Completed [facility] Influenza Virus Vaccine Quad IM 3+ YRS 2014-09-05 00:00:00 Completed [facility] Pneumococcal Polysaccharide, PPSV23 (PNEUMOVAX) 2014-09-05 00:00:00 Completed [facility] Influenza Virus Vaccine Quad IM 3+ YRS 2014-09-05 00:00:00 Completed [facility] Pneumococcal Polysaccharide, PPSV23 (PNEUMOVAX) 2014-09-05 00:00:00 Completed [facility] Influenza Virus Vaccine Quad IM 3+ YRS 2014-09-05 00:00:00 Completed [facility] Pneumococcal Polysaccharide, PPSV23 (PNEUMOVAX) 2014-09-05 00:00:00 Completed [facility] Influenza Virus Vaccine Quad IM 3+ YRS 2014-09-05 00:00:00 Completed [facility] Pneumococcal Polysaccharide, PPSV23 (PNEUMOVAX) 2014-09-05 00:00:00 Completed [facility] Influenza Virus Vaccine Quad IM 3+ YRS 2014-09-05 00:00:00 Completed [facility] Pneumococcal Polysaccharide, PPSV23 (PNEUMOVAX) 2014-09-05 00:00:00 Completed [facility] Influenza Virus Vaccine Quad IM 3+ YRS 2014-09-05 00:00:00 Completed [facility] Pneumococcal Polysaccharide, PPSV23 (PNEUMOVAX) 2014-09-05 00:00:00 Completed [facility] Influenza Virus Vaccine Quad IM 3+ YRS 2014-09-05 00:00:00 Completed [facility] Pneumococcal Polysaccharide, PPSV23 (PNEUMOVAX) 2014-09-05 00:00:00 Completed [facility] Influenza Virus Vaccine Quad IM 3+ YRS 2014-09-05 00:00:00 Completed [facility] Pneumococcal Polysaccharide, PPSV23 (PNEUMOVAX) 2014-09-05 00:00:00 Completed [facility] Influenza Virus Vaccine Quad IM 3+ YRS 2014-09-05 00:00:00 Completed [facility] Pneumococcal Polysaccharide, PPSV23 (PNEUMOVAX) 2014-09-05 00:00:00 Completed [facility] Influenza Virus Vaccine Quad IM 3+ YRS 2014-09-05 00:00:00 Completed [facility] Pneumococcal Polysaccharide, PPSV23 (PNEUMOVAX) 2014-09-05 00:00:00 Completed [facility] Influenza Virus Vaccine Quad IM 3+ YRS 2014-09-05 00:00:00 Completed [facility] Pneumococcal Polysaccharide, PPSV23 (PNEUMOVAX) 2014-09-05 00:00:00 Completed [facility] Influenza Virus Vaccine Quad IM 3+ YRS 2014-09-05 00:00:00 Completed [facility] Pneumococcal Polysaccharide, PPSV23 (PNEUMOVAX) 2014-09-05 00:00:00 Completed [facility] Influenza Virus Vaccine Quad IM 3+ YRS 2014-09-05 00:00:00 Completed [facility] Pneumococcal Polysaccharide, PPSV23 (PNEUMOVAX) 2014-09-05 00:00:00 Completed [facility] Influenza Virus Vaccine Quad IM 3+ YRS 2014-09-05 00:00:00 Completed [facility] Pneumococcal Polysaccharide, PPSV23 (PNEUMOVAX) 2014-09-05 00:00:00 Completed [facility] Influenza Virus Vaccine Quad IM 3+ YRS 2014-09-05 00:00:00 Completed [facility] Influenza Virus Vaccine Quad IM 3+ YRS 2014-09-05 00:00:00 Completed [facility] Pneumococcal Polysaccharide, PPSV23 (PNEUMOVAX) 2014-09-05 00:00:00 Completed [facility] Pneumococcal Polysaccharide, PPSV23 (PNEUMOVAX) 2014-09-05 00:00:00 Completed [facility] Influenza Virus Vaccine Quad IM 3+ YRS 2014-09-05 00:00:00 Completed [facility] Pneumococcal Polysaccharide, PPSV23 (PNEUMOVAX) 2014-09-05 00:00:00 Completed [facility] Influenza Virus Vaccine Quad IM 3+ YRS 2014-09-05 00:00:00 Completed [facility] Pneumococcal Polysaccharide, PPSV23 (PNEUMOVAX) 2014-09-05 00:00:00 Completed [facility] Influenza Virus Vaccine Quad IM 3+ YRS 2014-09-05 00:00:00 Completed [facility] Pneumococcal Polysaccharide, PPSV23 (PNEUMOVAX) 2014-09-05 00:00:00 Completed [facility] Influenza Virus Vaccine Quad IM 3+ YRS 2014-09-05 00:00:00 Completed [facility] Influenza Virus Vaccine Quad IM 3+ YRS Unknown Completed [facility] Pneumococcal Polysaccharide, PPSV23 (PNEUMOVAX) Unknown Completed [facility] TD, NOS Unknown Completed [facility] SARS-COV-2 COVID-19 MODERNA 12+ YRS VACCINE Unknown Completed [facility] SARS-COV-2 COVID-19 MODERNA 12+ YRS VACCINE Unknown Completed [facility] Pneumococcal 20 Conjugate, PCV20 (Prevnar 20) Unknown Completed [facility] Influenza Virus Vaccine Quad IM 3+ YRS Unknown Completed [facility] Pneumococcal Polysaccharide, PPSV23 (PNEUMOVAX) Unknown Completed [facility] TD, NOS Unknown Completed [facility] SARS-COV-2 COVID-19 MODERNA 12+ YRS VACCINE Unknown Completed [facility] SARS-COV-2 COVID-19 MODERNA 12+ YRS VACCINE Unknown Completed [facility] Pneumococcal 20 Conjugate, PCV20 (Prevnar 20) Unknown Completed [facility] Influenza Virus Vaccine Quad IM 3+ YRS Unknown Completed [facility] Pneumococcal Polysaccharide, PPSV23 (PNEUMOVAX) Unknown Completed [facility] TD, NOS Unknown Completed [facility] SARS-COV-2 COVID-19 MODERNA 12+ YRS VACCINE Unknown Completed [facility] SARS-COV-2 COVID-19 MODERNA 12+ YRS VACCINE Unknown Completed [facility] Pneumococcal 20 Conjugate, PCV20 (Prevnar 20) Unknown Completed [facility] Vital Signs Vital Name Observation Time Observation Value Comments S ource Systolic blood pressure 2023-04-19 15:37:00 126 mm[Hg] [facility] Diastolic blood pressure 2023-04-19 15:37:00 83 mm[Hg] [facility] Heart rate 2023-04-19 15:37:00 94 /min [facility] Respiratory rate 2023-04-19 15:35:00 18 /min [facility] Body height 2023-04-19 15:35:00 177.8 cm [facility] Body weight 2023-04-19 15:35:00 59.138 kg [facility] BMI 2023-04-19 15:35:00 18.71 kg/m2 [facility] Oxygen saturation in Arterial blood by Pulse oximetry 2023-04-19 15:35:00 94 /min [facility] Systolic blood pressure 2023-03-01 20:27:00 143 mm[Hg] [facility] Diastolic blood pressure 2023-03-01 20:27:00 87 mm[Hg] [facility] Heart rate 2023-03-01 20:27:00 99 /min [facility] Body height 2023-03-01 20:27:00 177.8 cm [facility] Body weight 2023-03-01 20:27:00 57.153 kg [facility] BMI 2023-03-01 20:27:00 18.08 kg/m2 [facility] Oxygen saturation in Arterial blood by Pulse oximetry 2023-03-01 20:27:00 99 /min [facility] Systolic blood pressure 2023-02-18 16:17:00 144 mm[Hg] [facility] Diastolic blood pressure 2023-02-18 16:17:00 68 mm[Hg] [facility] Heart rate 2023-02-18 16:17:00 55 /min [facility] Body temperature 2023-02-18 16:17:00 36.06 Tia [facility] Respiratory rate 2023-02-18 16:17:00 18 /min [facility] Oxygen saturation in Arterial blood by Pulse oximetry 2023-02-18 16:17:00 100 /min [facility] Body weight 2023-02-18 07:50:00 58.968 kg [facility] BMI 2023-02-18 07:50:00 18.65 kg/m2 [facility] Body height 2023-02-16 00:31:00 177.8 cm [facility] Oxygen saturation in Arterial blood by Pulse oximetry 2023-02-07 19:29:00 99 /min [facility] Systolic blood pressure 2023-02-07 19:27:00 103 mm[Hg] [facility] Diastolic blood pressure 2023-02-07 19:27:00 75 mm[Hg] [facility] Heart rate 2023-02-07 19:27:00 104 /min [facility] Body temperature 2023-02-07 19:27:00 36.39 Tia [facility] Respiratory rate 2023-02-07 19:27:00 22 /min [facility] Body weight 2023-02-07 19:27:00 72.576 kg [facility] BMI 2023-02-07 19:27:00 22.96 kg/m2 [facility] Heart rate 2023-02-05 20:17:00 85 /min [facility] Respiratory rate 2023-02-05 20:17:00 18 /min [facility] Oxygen saturation in Arterial blood by Pulse oximetry 2023-02-05 20:17:00 100 /min [facility] Systolic blood pressure 2023-02-05 19:53:35 98 mm[Hg] [facility] Diastolic blood pressure 2023-02-05 19:53:35 71 mm[Hg] [facility] Body temperature 2023-02-05 19:51:00 36.5 Tia [facility] Body height 2023-02-05 19:51:00 177.8 cm [facility] Body weight 2023-02-05 19:51:00 72.576 kg [facility] BMI 2023-02-05 19:51:00 22.96 kg/m2 [facility] Heart rate 2023-02-04 20:31:00 76 /min [facility] Respiratory rate 2023-02-04 20:31:00 18 /min [facility] Oxygen saturation in Arterial blood by Pulse oximetry 2023-02-04 20:31:00 97 /min [facility] Systolic blood pressure 2023-02-04 20:15:00 126 mm[Hg] [facility] Diastolic blood pressure 2023-02-04 20:15:00 98 mm[Hg] [facility] Body temperature 2023-02-04 20:15:00 36.83 Tia [facility] Body weight 2023-02-04 20:15:00 72.576 kg [facility] BMI 2023-02-04 20:15:00 22.96 kg/m2 [facility] Systolic blood pressure 2023-02-03 23:00:00 100 mm[Hg] [facility] Diastolic blood pressure 2023-02-03 23:00:00 65 mm[Hg] [facility] Heart rate 2023-02-03 23:00:00 115 /min [facility] Respiratory rate 2023-02-03 23:00:00 20 /min [facility] Oxygen saturation in Arterial blood by Pulse oximetry 2023-02-03 23:00:00 97 /min [facility] Body temperature 2023-02-03 22:44:00 36.72 Tia [facility] Body weight 2023-02-03 22:44:00 72.576 kg [facility] BMI 2023-02-03 22:44:00 22.96 kg/m2 [facility] Systolic blood pressure 2023-02-03 20:02:00 128 mm[Hg] [facility] Diastolic blood pressure 2023-02-03 20:02:00 81 mm[Hg] [facility] Heart rate 2023-02-03 20:02:00 88 /min [facility] Respiratory rate 2023-02-03 20:02:00 25 /min [facility] Oxygen saturation in Arterial blood by Pulse oximetry 2023-02-03 20:02:00 94 /min [facility] Body temperature 2023-02-03 18:18:00 36.61 Tia [facility] Body weight 2023-02-03 17:41:00 72.576 kg [facility] BMI 2023-02-03 17:41:00 22.96 kg/m2 [facility] Heart rate 2023-02-02 22:49:00 107 /min [facility] Respiratory rate 2023-02-02 22:49:00 20 /min [facility] Oxygen saturation in Arterial blood by Pulse oximetry 2023-02-02 22:49:00 94 /min [facility] Systolic blood pressure 2023-02-02 22:32:00 102 mm[Hg] [facility] Diastolic blood pressure 2023-02-02 22:32:00 74 mm[Hg] [facility] Body temperature 2023-02-02 21:58:32 35.83 Tia [facility] Body height 2023-02-02 21:54:00 177.8 cm [facility] Body weight 2023-02-02 21:54:00 72.576 kg [facility] BMI 2023-02-02 21:54:00 22.96 kg/m2 [facility] Systolic blood pressure 2023-01-31 21:00:00 140 mm[Hg] [facility] Diastolic blood pressure 2023-01-31 21:00:00 72 mm[Hg] [facility] Heart rate 2023-01-31 21:00:00 89 /min [facility] Respiratory rate 2023-01-31 21:00:00 20 /min [facility] Oxygen saturation in Arterial blood by Pulse oximetry 2023-01-31 21:00:00 97 /min [facility] Body temperature 2023-01-31 18:50:00 36.72 Tia [facility] Body weight 2023-01-31 18:50:00 72.576 kg [facility] BMI 2023-01-31 18:50:00 22.96 kg/m2 [facility] Systolic blood pressure 2023-01-31 16:09:00 130 mm[Hg] [facility] Diastolic blood pressure 2023-01-31 16:09:00 72 mm[Hg] [facility] Heart rate 2023-01-31 16:09:00 99 /min [facility] Body temperature 2023-01-31 16:09:00 36.39 Tia [facility] Respiratory rate 2023-01-31 16:09:00 18 /min [facility] Body height 2023-01-31 16:09:00 177.8 cm [facility] Body weight 2023-01-31 16:09:00 72.576 kg [facility] BMI 2023-01-31 16:09:00 22.96 kg/m2 [facility] Oxygen saturation in Arterial blood by Pulse oximetry 2023-01-31 16:09:00 97 /min [facility] Systolic blood pressure 2023-01-31 14:50:00 134 mm[Hg] [facility] Diastolic blood pressure 2023-01-31 14:50:00 72 mm[Hg] [facility] Heart rate 2023-01-31 14:50:00 85 /min [facility] Body temperature 2023-01-31 14:50:00 36.39 Tia [facility] Respiratory rate 2023-01-31 14:50:00 20 /min [facility] Body weight 2023-01-31 14:50:00 72.576 kg [facility] BMI 2023-01-31 14:50:00 22.96 kg/m2 [facility] Oxygen saturation in Arterial blood by Pulse oximetry 2023-01-31 14:50:00 100 /min [facility] Respiratory rate 2023-01-29 13:40:00 20 /min [facility] Oxygen saturation in Arterial blood by Pulse oximetry 2023-01-29 13:40:00 100 /min [facility] Systolic blood pressure 2023-01-29 13:06:00 123 mm[Hg] [facility] Diastolic blood pressure 2023-01-29 13:06:00 76 mm[Hg] [facility] Heart rate 2023-01-29 13:06:00 97 /min [facility] Body temperature 2023-01-29 13:06:00 36.61 Tia [facility] Body height 2023-01-29 13:06:00 177.8 cm [facility] Body weight 2023-01-29 13:06:00 72.576 kg [facility] BMI 2023-01-29 13:06:00 22.96 kg/m2 [facility] Systolic blood pressure 2023-01-27 11:47:00 115 mm[Hg] [facility] Diastolic blood pressure 2023-01-27 11:47:00 75 mm[Hg] [facility] Heart rate 2023-01-27 11:47:00 100 /min [facility] Body temperature 2023-01-27 11:47:00 35.78 Tia [facility] Respiratory rate 2023-01-27 11:47:00 28 /min [facility] Oxygen saturation in Arterial blood by Pulse oximetry 2023-01-27 11:47:00 99 /min [facility] Body height 2023-01-27 09:57:00 177.8 cm [facility] Body weight 2023-01-27 09:57:00 72.576 kg [facility] BMI 2023-01-27 09:57:00 22.96 kg/m2 [facility] Heart rate 2023-01-24 20:55:00 88 /min [facility] Oxygen saturation in Arterial blood by Pulse oximetry 2023-01-24 20:55:00 93 /min [facility] Respiratory rate 2023-01-24 20:52:00 22 /min [facility] Systolic blood pressure 2023-01-24 20:30:00 128 mm[Hg] [facility] Diastolic blood pressure 2023-01-24 20:30:00 69 mm[Hg] [facility] Body temperature 2023-01-24 17:24:00 36.67 Tia [facility] Body height 2023-01-24 17:24:00 177.8 cm [facility] Body weight 2023-01-24 17:24:00 72.576 kg [facility] BMI 2023-01-24 17:24:00 22.96 kg/m2 [facility] Systolic blood pressure 2023-01-24 01:00:00 129 mm[Hg] [facility] Diastolic blood pressure 2023-01-24 01:00:00 76 mm[Hg] [facility] Heart rate 2023-01-24 01:00:00 77 /min [facility] Respiratory rate 2023-01-24 01:00:00 18 /min [facility] Oxygen saturation in Arterial blood by Pulse oximetry 2023-01-24 01:00:00 99 /min [facility] Body temperature 2023-01-24 00:02:00 35.61 Tia warm blankets applied [facility] Body weight 2023-01-24 00:02:00 58.968 kg [facility] BMI 2023-01-24 00:02:00 18.65 kg/m2 [facility] Heart rate 2023-01-22 23:46:00 93 /min [facility] Respiratory rate 2023-01-22 23:46:00 20 /min [facility] Oxygen saturation in Arterial blood by Pulse oximetry 2023-01-22 23:46:00 100 /min [facility] Systolic blood pressure 2023-01-22 23:21:00 146 mm[Hg] [facility] Diastolic blood pressure 2023-01-22 23:21:00 93 mm[Hg] [facility] Body temperature 2023-01-22 23:21:00 36.72 Tia [facility] Body weight 2023-01-22 23:21:00 58.968 kg [facility] BMI 2023-01-22 23:21:00 18.65 kg/m2 [facility] Heart rate 2023-01-21 21:57:00 84 /min [facility] Respiratory rate 2023-01-21 21:57:00 18 /min [facility] Oxygen saturation in Arterial blood by Pulse oximetry 2023-01-21 21:57:00 97 /min [facility] Systolic blood pressure 2023-01-21 21:00:00 103 mm[Hg] [facility] Diastolic blood pressure 2023-01-21 21:00:00 61 mm[Hg] [facility] Body temperature 2023-01-21 19:24:00 36.56 Tia [facility] Body weight 2023-01-21 19:24:00 58.968 kg [facility] BMI 2023-01-21 19:24:00 18.65 kg/m2 [facility] Systolic blood pressure 2023-01-19 21:00:00 111 mm[Hg] [facility] Diastolic blood pressure 2023-01-19 21:00:00 64 mm[Hg] [facility] Heart rate 2023-01-19 21:00:00 85 /min [facility] Body temperature 2023-01-19 21:00:00 36.56 Tia [facility] Respiratory rate 2023-01-19 21:00:00 17 /min [facility] Oxygen saturation in Arterial blood by Pulse oximetry 2023-01-19 21:00:00 98 /min [facility] Body height 2023-01-19 06:22:00 177.8 cm [facility] Body weight 2023-01-19 06:22:00 58.968 kg [facility] BMI 2023-01-19 06:22:00 18.65 kg/m2 [facility] Systolic blood pressure 2023-01-17 12:05:00 116 mm[Hg] [facility] Diastolic blood pressure 2023-01-17 12:05:00 69 mm[Hg] [facility] Heart rate 2023-01-17 12:05:00 100 /min [facility] Respiratory rate 2023-01-17 12:05:00 24 /min [facility] Oxygen saturation in Arterial blood by Pulse oximetry 2023-01-17 12:05:00 93 /min [facility] Body temperature 2023-01-17 10:59:00 35.39 Tia [facility] Body height 2023-01-17 10:59:00 177.8 cm [facility] Body weight 2023-01-17 10:59:00 58.968 kg [facility] BMI 2023-01-17 10:59:00 18.65 kg/m2 [facility] Systolic blood pressure 2023-01-07 19:38:00 122 mm[Hg] [facility] Diastolic blood pressure 2023-01-07 19:38:00 86 mm[Hg] [facility] Heart rate 2023-01-07 19:38:00 110 /min [facility] Respiratory rate 2023-01-07 19:38:00 16 /min [facility] Body height 2023-01-07 19:38:00 177.8 cm [facility] Body weight 2023-01-07 19:38:00 59.966 kg [facility] BMI 2023-01-07 19:38:00 18.97 kg/m2 [facility] Systolic blood pressure 2022-12-26 18:00:00 118 mm[Hg] [facility] Diastolic blood pressure 2022-12-26 18:00:00 79 mm[Hg] [facility] Heart rate 2022-12-26 18:00:00 93 /min [facility] Respiratory rate 2022-12-26 18:00:00 20 /min [facility] Oxygen saturation in Arterial blood by Pulse oximetry 2022-12-26 18:00:00 95 /min [facility] Body temperature 2022-12-26 15:49:00 36.11 Tia [facility] Body height 2022-12-26 15:49:00 177.8 cm [facility] Body weight 2022-12-26 15:49:00 72.576 kg [facility] BMI 2022-12-26 15:49:00 22.96 kg/m2 [facility] Respiratory rate 2022-12-12 16:45:00 18 /min [facility] Oxygen saturation in Arterial blood by Pulse oximetry 2022-12-12 16:45:00 99 /min [facility] Systolic blood pressure 2022-12-12 16:11:00 135 mm[Hg] [facility] Diastolic blood pressure 2022-12-12 16:11:00 80 mm[Hg] [facility] Heart rate 2022-12-12 16:11:00 77 /min [facility] Body temperature 2022-12-12 16:11:00 35.89 Tia [facility] Body weight 2022-12-12 08:50:00 65 kg [facility] BMI 2022-12-12 08:50:00 20.56 kg/m2 [facility] Body height 2022-12-11 04:23:00 177.8 cm [facility] Heart rate 2022-12-04 12:33:00 95 /min [facility] Respiratory rate 2022-12-04 12:33:00 17 /min [facility] Oxygen saturation in Arterial blood by Pulse oximetry 2022-12-04 12:33:00 98 /min [facility] Systolic blood pressure 2022-12-04 12:20:00 125 mm[Hg] [facility] Diastolic blood pressure 2022-12-04 12:20:00 74 mm[Hg] [facility] Body temperature 2022-12-04 12:20:00 36.61 Tia [facility] Body height 2022-12-02 05:16:00 177.8 cm [facility] Body weight 2022-12-02 05:16:00 72.576 kg [facility] BMI 2022-12-02 05:16:00 22.96 kg/m2 [facility] Systolic blood pressure 2022-12-01 13:00:00 114 mm[Hg] [facility] Diastolic blood pressure 2022-12-01 13:00:00 78 mm[Hg] [facility] Heart rate 2022-12-01 13:00:00 88 /min [facility] Respiratory rate 2022-12-01 13:00:00 20 /min [facility] Oxygen saturation in Arterial blood by Pulse oximetry 2022-12-01 13:00:00 98 /min [facility] Body temperature 2022-12-01 10:13:00 36.67 Tia [facility] Body height 2022-12-01 10:13:00 177.8 cm [facility] Body weight 2022-12-01 10:13:00 72.576 kg [facility] BMI 2022-12-01 10:13:00 22.96 kg/m2 [facility] Systolic blood pressure 2022-11-28 17:00:00 154 mm[Hg] [facility] Diastolic blood pressure 2022-11-28 17:00:00 106 mm[Hg] [facility] Heart rate 2022-11-28 17:00:00 87 /min [facility] Respiratory rate 2022-11-28 17:00:00 23 /min [facility] Oxygen saturation in Arterial blood by Pulse oximetry 2022-11-28 17:00:00 96 /min [facility] Body temperature 2022-11-28 16:00:00 36.78 Tia [facility] Body weight 2022-11-27 12:00:00 67.132 kg [facility] BMI 2022-11-27 12:00:00 21.24 kg/m2 [facility] Body height 2022-11-27 08:39:00 177.8 cm [facility] Systolic blood pressure 2022-11-19 10:48:00 152 mm[Hg] [facility] Diastolic blood pressure 2022-11-19 10:48:00 88 mm[Hg] [facility] Heart rate 2022-11-19 10:48:00 92 /min [facility] Respiratory rate 2022-11-19 10:48:00 16 /min [facility] Oxygen saturation in Arterial blood by Pulse oximetry 2022-11-19 10:48:00 98 /min [facility] Body temperature 2022-11-19 08:20:00 36.22 Tia [facility] Body height 2022-11-19 08:20:00 177.8 cm [facility] Body weight 2022-11-19 08:20:00 67.132 kg [facility] BMI 2022-11-19 08:20:00 21.24 kg/m2 [facility] Systolic blood pressure 2022-11-19 02:18:57 152 mm[Hg] [facility] Diastolic blood pressure 2022-11-19 02:18:57 91 mm[Hg] [facility] Heart rate 2022-11-19 02:18:57 109 /min [facility] Respiratory rate 2022-11-19 02:18:57 22 /min [facility] [facility] Oxygen saturation in Arterial blood by Pulse oximetry 2022-11-19 02:18:57 95 /min [facility] Body temperature 2022-11-19 02:17:11 36.78 Tia [facility] Body height 2022-11-19 00:52:00 177.8 cm [facility] Body weight 2022-11-19 00:52:00 67.132 kg [facility] BMI 2022-11-19 00:52:00 21.24 kg/m2 [facility] Heart rate 2022-11-11 17:35:00 75 /min [facility] Respiratory rate 2022-11-11 17:35:00 18 /min [facility] Oxygen saturation in Arterial blood by Pulse oximetry 2022-11-11 17:35:00 95 /min [facility] Systolic blood pressure 2022-11-11 17:25:00 130 mm[Hg] [facility] Diastolic blood pressure 2022-11-11 17:25:00 71 mm[Hg] [facility] Body temperature 2022-11-11 17:25:00 35.94 Tia [facility] Body weight 2022-11-11 09:34:00 77.52 kg [facility] BMI 2022-11-11 09:34:00 24.52 kg/m2 [facility] Body height 2022-11-09 19:30:00 177.8 cm [facility] Systolic blood pressure 2020-12-29 15:24:00 96 mm[Hg] [facility] Diastolic blood pressure 2020-12-29 15:24:00 66 mm[Hg] [facility] Heart rate 2020-12-29 15:24:00 71 /min [facility] Body temperature 2020-12-29 15:24:00 36.33 Tia [facility] Body weight 2020-12-29 15:24:00 72.576 kg [facility] BMI 2020-12-29 15:24:00 22.96 kg/m2 [facility] Oxygen saturation in Arterial blood by Pulse oximetry 2020-12-29 15:24:00 95 /min [facility] Systolic blood pressure 2020-12-18 19:07:00 117 mm[Hg] [facility] Diastolic blood pressure 2020-12-18 19:07:00 77 mm[Hg] [facility] Heart rate 2020-12-18 19:07:00 77 /min [facility] Body temperature 2020-12-18 19:07:00 36.22 Tia [facility] Respiratory rate 2020-12-18 19:07:00 18 /min [facility] Body height 2020-12-18 19:07:00 177.8 cm [facility] Body weight 2020-12-18 19:07:00 73.211 kg [facility] BMI 2020-12-18 19:07:00 23.16 kg/m2 [facility] Systolic blood pressure 2020-12-12 18:00:00 109 mm[Hg] [facility] Diastolic blood pressure 2020-12-12 18:00:00 74 mm[Hg] [facility] Heart rate 2020-12-12 18:00:00 78 /min [facility] Respiratory rate 2020-12-12 18:00:00 20 /min [facility] Oxygen saturation in Arterial blood by Pulse oximetry 2020-12-12 18:00:00 96 /min [facility] Body temperature 2020-12-12 16:33:00 37.28 Tia [facility] Body height 2020-12-12 16:33:00 177.8 cm [facility] Body weight 2020-12-12 16:33:00 70.308 kg [facility] BMI 2020-12-12 16:33:00 22.24 kg/m2 [facility] Systolic blood pressure 2020-12-08 18:55:00 125 mm[Hg] [facility] Diastolic blood pressure 2020-12-08 18:55:00 82 mm[Hg] [facility] Heart rate 2020-12-08 18:55:00 75 /min [facility] Body temperature 2020-12-08 18:55:00 36.56 Tia [facility] Respiratory rate 2020-12-08 18:55:00 16 /min [facility] Body height 2020-12-08 18:55:00 177.8 cm [facility] Body weight 2020-12-08 18:55:00 73.12 kg [facility] BMI 2020-12-08 18:55:00 23.13 kg/m2 [facility] Systolic blood pressure 2019-05-04 04:21:00 127 mm[Hg] [facility] Diastolic blood pressure 2019-05-04 04:21:00 86 mm[Hg] [facility] Heart rate 2019-05-04 04:21:00 99 /min [facility] Respiratory rate 2019-05-04 04:21:00 26 /min [facility] Body height 2019-05-04 04:21:00 177.8 cm [facility] Body weight 2019-05-04 04:21:00 72.576 kg [facility] BMI 2019-05-04 04:21:00 22.96 kg/m2 [facility] Oxygen saturation in Arterial blood by Pulse oximetry 2019-05-04 04:21:00 99 /min [facility] Systolic blood pressure 2019-05-04 04:21:00 127 mm[Hg] [facility] Diastolic blood pressure 2019-05-04 04:21:00 86 mm[Hg] [facility] Heart rate 2019-05-04 04:21:00 99 /min [facility] Respiratory rate 2019-05-04 04:21:00 26 /min [facility] Body height 2019-05-04 04:21:00 177.8 cm [facility] Body weight 2019-05-04 04:21:00 72.576 kg [facility] BMI 2019-05-04 04:21:00 22.96 kg/m2 [facility] Oxygen saturation in Arterial blood by Pulse oximetry 2019-05-04 04:21:00 99 /min [facility] Procedures Procedure Date / Time Performed Performing Clinician Source MEDICATION CORRESPONDENCE 2023-07-08 05:01:00 Do ctor Unassigned, Wye [facility] CONSENT/REFUSAL FOR DIAGNOSIS AND TREATMENT 2023-03-01 19:49:30 Doctor Unassigned, Wye [facility] TRANSTHORACIC ECHO (TTE) COMPLETE W/ CONTRAST 2023-02-16 13:56:56 Dedrick Toth [facility] TROPONIN I 2023-02-16 11:32:00 Dedrick Toth Uni [facility] COMP. METABOLIC PANEL ([id number]) 2023-02-16 11:32:00 Dedrick Toth [facility] CBC WITH DIFF 2023-02-16 11:32:00 Dedrick Toth Un [facility] N-TERMINAL PRO-BNP 2023-02-16 11:32:00 Dedrick Toth [facility] URINALYSIS 2023-02-15 21:18:00 [facility] & RHYTHM STRIP 2023-02-15 20:15:35 Francisca Bryant [facility] XR CHEST 1 VW 2023-02-15 20:14:30 [facility] AC PANEL 21 + LACTIC ACID 2023-02-15 20:02:00 Francisca Bryant [facility] MAGNESIUM 2023-02-15 20:01:00 [facility] 2023-02-15 20:01:00 Francisca Bryant [facility] COMP. METABOLIC PANEL ([id number]) 2023-02-15 20:01:00 Francisca Bryant [facility] CBC WITH DIFF 2023-02-15 20:01:00 Francisca Bryant [facility] ASSIGNMENT OF BENEFITS 2023-02-07 19:52:07 Docto r Unassigned, Wye [facility] CONSENT/REFUSAL FOR DIAGNOSIS AND TREATMENT 2023-02-07 19:51:03 Doctor Unassigned, Wye [facility] CONSENT/REFUSAL FOR DIAGNOSIS AND TREATMENT 2023-02-04 19:51:56 Doctor Unassigned, Wye [facility] TROPONIN I 2023-01-31 20:21:00 Rachael Flowers [facility] COMP. METABOLIC PANEL ([id number]) 2023-01-31 20:21:00 Rachael Flowers [facility] ETHANOL 2023-01-31 20:21:00 Rachael Flowers [facility] CBC WITH DIFF 2023-01-31 20:21:00 Rachael Flowers [facility] N-TERMINAL PRO-BNP 2023-01-31 20:21:00 Fernando Flowers [facility] CONSENT/REFUSAL FOR DIAGNOSIS AND TREATMENT 2023-01-31 18:39:05 Doctor Unassigned, Wye [facility] CONSENT/REFUSAL FOR DIAGNOSIS AND TREATMENT 2023-01-31 15:54:08 Doctor Unassigned, Wye [facility] CONSENT/REFUSAL FOR DIAGNOSIS AND TREATMENT 2023-01-31 14:29:18 Doctor Unassigned, Wye [facility] ACUTE CARE VENOUS BLOOD GAS 2023-01-27 10:45:00 Bessie Oswald [facility] TROPONIN I 2023-01-27 10:16:00 Bessie [facility]ald [facility] BASIC METABOLIC PANEL (NA, K, CL, CO2, GLUCOSE, BUN, CREATININE, CA) 2023-01-27 10:16:00 Bessie Oswald [facility] CBC WITH DIFF 2023-01-27 10:16:00 JaBessie elaine [facility] N-TERMINAL PRO-BNP 2023-01-27 10:16:00 Bessie Oswald [facility] URINALYSIS 2023-01-24 20:23:00 Stephanie Almonte [facility] CT HEAD WO CONTRAST 2023-01-24 19:38:00 Stephanie Almonte [facility] AC ABG + LACTIC ACID 2023-01-24 18:37:00 Stephanie Almonte [facility] AMMONIA, PLASMA 2023-01-24 18:19:00 Stephanie Almonte as [facility] RAPID STREP SCREEN FOR GROUP A 2023-01-24 18:19:00 Stephanie Almonte [facility] COVID-19 (ID NOW RAPID TESTING) 2023-01-24 18:19:00 Stephanie Almonte [facility] TROPONIN I 2023-01-24 17:52:00 Stephanie Almonte [facility] COMP. METABOLIC PANEL ([id number]) 2023-01-24 17:52:00 Stephanie Almonte [facility] ETHANOL 2023-01-24 17:52:00 Stephanie Almonte [facility] CBC WITH DIFF 2023-01-24 17:52:00 Stephanie Almonte [facility] N-TERMINAL PRO-BNP 2023-01-24 17:52:00 [facility] COMP. METABOLIC PANEL ([id number]) 2023-01-21 20:58:00 Singer [facility] TROPONIN I 2023-01-21 20:05:00 [facility] CBC WITH DIFF 2023-01-21 20:05:00 Singer Louis [facility] N-TERMINAL PRO-BNP 2023-01-21 20:05:00 Singer [facility] AC PANEL 21 + LACTIC ACID 2023-01-19 08:31:00 Zechariah Hackett [facility] D-DIMER 2023-01-19 08:17:00 Agapito Hackett [facility] BASIC METABOLIC PANEL (NA, K, CL, CO2, GLUCOSE, BUN, CREATININE, CA) 2023-01-19 08:15:00 Iza Varma [facility] CBC WITH DIFF 2023-01-19 08:15:00 Iza Varma [facility] N-TERMINAL PRO-BNP 2023-01-19 08:15:00 Agapito Hackett [facility] EKG-12 LEAD 2023-01-17 12:23:30 Marisol Devlin [facility] XR CHEST 1 VW 2023-01-17 11:25:05 [facility]23-01-17 11:04:00 Marisol Devlin [facility] COMP. METABOLIC PANEL ([id number]) 2023-01-17 11:04:00 Marisol Devlin [facility] CBC WITH DIFF 2023-01-17 11:04:00 Marisol Devlin [facility] N-TERMINAL PRO-BNP 2023-01-17 11:04:00 Marisol [facility]lin [facility] COMP. METABOLIC PANEL ([id number]) 2022-12-26 17:23:00 Iza Varma [facility] XR CHEST 1 VW 2022-12-26 16:39:21 [facility] URINE DRUG (IMMUNOASSAY) - COMPREHENSIVE DRUG SCREEN 2022-12-26 16:29:00 Iza Varma [facility] URINALYSIS 2022-12-26 16:29:00 Iza [facility] CBC WITH DIFF 2022-12-26 16:28:00 [facility] MAGNESIUM 2022-12-12 08:55:00 Travis [facility] BASIC METABOLIC PANEL (NA, K, CL, CO2, GLUCOSE, BUN, CREATININE, CA) 2022-12-12 08:55:00 Travis Zeng [facility] LIPID PANEL ([id number])(TOTAL CHOLESTEROL, TRIGLYCERIDES, HDL) 2022-12-12 08:55:00 Travis Zeng [facility] N-TERMINAL PRO-BNP 2022-12-12 08:55:00 Travis Zeng [facility] MAGNESIUM 2022-12-11 08:30:00 Dedrick Toth [facility] OSMOLALITY, SERUM OR PLASMA 2022-12-11 08:30:00 Dedrick Toth [facility] FREE T4 2022-12-11 08:30:00 Dedrick Toth [facility] BASIC METABOLIC PANEL (NA, K, CL, CO2, GLUCOSE, BUN, CREATININE, CA) 2022-12-11 08:30:00 Dedrick Toth [facility] CBC WITH DIFF 2022-12-11 08:30:00 [facility] 2022-12-11 08:30:00 Dedrick Toth [facility] OSMOLALITY URINE 2022-12-11 03:24:00 Dedrick Toth [facility] SODIUM, URINE RANDOM 2022-12-11 03:24:00 Gunnar Toth [facility] URINALYSIS 2022-12-11 01:15:00 Louis Hong [facility] HB ECG ROUTINE & RHYTHM STRIP 2022-12-11 00:38:04 Louis Hong [facility] CT HEAD WO CONTRAST 2022-12-11 00:32:23 Kameron Hong [facility] XR CHEST 1 VW 2022-12-11 00:29:20 Singer [facility] TROPONIN I 2022-12-11 00:08:00 [facility] COMP. METABOLIC PANEL ([id number]) 2022-12-11 00:08:00 Louis Hong [facility] ETHANOL 2022-12-11 00:08:00 Louis Hong [facility] CBC WITH DIFF 2022-12-11 00:08:00 Louis Hong [facility] N-TERMINAL PRO-BNP 2022-12-11 00:08:00 Louis Hong [facility] LACTIC ACID WHOLE BLOOD 2022-12-11 00:03:00 Angelita Hong [facility] AUTHORIZATION FOR RELEASE OF PHI 2022-12-09 05:01:00 Doctor Unassigned, Wye [facility] BASIC METABOLIC PANEL (NA, K, CL, CO2, GLUCOSE, BUN, CREATININE, CA) 2022-12-04 10:43:00 Ben [facility] CBC WITH DIFF 2022-12-04 10:43:00 Clive Contreras [facility] OSMOLALITY URINE 2022-12-03 17:05:00 Lisseth De Santiago [facility] SODIUM, URINE RANDOM 2022-12-03 17:05:00 Haley De Santiago [facility] MAGNESIUM 2022-12-03 10:20:00 Clive Contreras [facility] BASIC METABOLIC PANEL (NA, K, CL, CO2, GLUCOSE, BUN, CREATININE, CA) 2022-12-03 10:20:00 Ben [facility] CBC WITH DIFF 2022-12-03 10:20:00 Clive Contreras [facility] BASIC METABOLIC PANEL (NA, K, CL, CO2, GLUCOSE, BUN, CREATININE, CA) 2022-12-02 05:27:00 Carlo Maki [facility] CONSENT/REFUSAL FOR DIAGNOSIS AND TREATMENT 2022-12-02 05:08:30 Doctor Unassigned, Wye [facility] HOSPITAL ADMISSION 2022-12-02 05:01:00 Doctor Un assigned, Wye [facility] COVID-19 (ID NOW RAPID TESTING) 2022-12-01 13:01:00 Ernesto Piper [facility] XR CHEST 1 VW 2022-12-01 12:40:25 Marisol Devlin [facility] EKG-12 LEAD 2022-12-01 12:17:26 Marisol Devlin [facility] ACUTE CARE ARTERIAL BLOOD GAS 2022-12-01 12:06:00 Marisol Devlin [facility] TROPONIN I 2022-12-01 11:51:00 Marisol Devlin [facility] BASIC METABOLIC PANEL (NA, K, CL, CO2, GLUCOSE, BUN, CREATININE, CA) 2022-12-01 11:51:00 Marisol Devlin [facility] CBC WITH DIFF 2022-12-01 11:51:00 Marisol Devlin [facility] BASIC METABOLIC PANEL (NA, K, CL, CO2, GLUCOSE, BUN, CREATININE, CA) 2022-11-28 16:51:00 Leila Chapa [facility] URIC ACID 2022-11-28 08:14:00 Reyna [facility] THYROID STIMULATING HORMONE 2022-11-28 08:14:00 Reyna [facility] BASIC METABOLIC PANEL (NA, K, CL, CO2, GLUCOSE, BUN, CREATININE, CA) 2022-11-28 08:14:00 Leila Chapa [facility] CBC WITH DIFF 2022-11-28 08:14:00 María Diaz [facility] BASIC METABOLIC PANEL (NA, K, CL, CO2, GLUCOSE, BUN, CREATININE, CA) 2022-11-28 04:16:00 María Diaz [facility] BASIC METABOLIC PANEL (NA, K, CL, CO2, GLUCOSE, BUN, CREATININE, CA) 2022-11-28 00:33:00 Leila Chapa [facility] BASIC METABOLIC PANEL (NA, K, CL, CO2, GLUCOSE, BUN, CREATININE, CA) 2022-11-27 19:55:00 María Diaz [facility] MRSA / MSSA SCREEN BY ERIKA NARANJO 2022-11-27 09:21:00 María Diaz [facility] OSMOLALITY, SERUM OR PLASMA 2022-11-27 09:10:00 María Diaz [facility] OSMOLALITY URINE 2022-11-27 09:04:00 María Diaz [facility] BASIC METABOLIC PANEL (NA, K, CL, CO2, GLUCOSE, BUN, CREATININE, CA) 2022-11-27 09:04:00 Mraía Diaz [facility] URINE DRUG (IMMUNOASSAY) - COMPREHENSIVE DRUG SCREEN 2022-11-27 09:04:00 María Diaz [facility] URINALYSIS 2022-11-27 09:04:00 María [facility] CREATININE, URINE RANDOM 2022-11-27 09:04:00 Ben Diaz [facility] SODIUM, URINE RANDOM 2022-11-27 09:04:00 María Diaz [facility] XR CHEST 1 VW 2022-11-27 06:15:54 [facility] MAGNESIUM 2022-11-27 05:33:00 María [facility] TROPONIN I 2022-11-27 05:33:00 Bessie Oswald [facility] COMP. METABOLIC PANEL ([id number]) 2022-11-27 05:33:00 Bessie Oswald [facility] ETHANOL 2022-11-27 05:33:00 Bessie [facility]ald [facility] CBC WITH DIFF 2022-11-27 05:33:00 Bessie Oswald [facility] GLYCOSYLATED HEMOGLOBIN (A1C) 2022-11-27 05:33:00 Leila Chapa [facility] N-TERMINAL PRO-BNP 2022-11-27 05:33:00 Bessie Oswald [facility] HB ECG ROUTINE & RHYTHM STRIP 2022-11-27 05:31:54 Bessie Oswald [facility] COMP. METABOLIC PANEL ([id number]) 2022-11-19 08:44:00 Iza Varma [facility] CBC WITH DIFF 2022-11-19 08:44:00 [facility] N-TERMINAL PRO-BNP 2022-11-19 08:44:00 Iza Varma [facility] BASIC METABOLIC PANEL (NA, K, CL, CO2, GLUCOSE, BUN, CREATININE, CA) 2022-11-11 10:52:00 Iza Eden [facility] CBC WITH DIFF 2022-11-11 10:52:00 Iza Eden [facility] BASIC METABOLIC PANEL (NA, K, CL, CO2, GLUCOSE, BUN, CREATININE, CA) 2022-11-11 02:16:00 Guanako [facility] BASIC METABOLIC PANEL (NA, K, CL, CO2, GLUCOSE, BUN, CREATININE, CA) 2022-11-10 22:45:00 Guanako [facility] BASIC METABOLIC PANEL (NA, K, CL, CO2, GLUCOSE, BUN, CREATININE, CA) 2022-11-10 17:27:00 Guanako [facility] BASIC METABOLIC PANEL (NA, K, CL, CO2, GLUCOSE, BUN, CREATININE, CA) 2022-11-10 11:49:00 Guanako [facility] MAGNESIUM 2022-11-10 07:14:00 Travis Zeng [facility] BASIC METABOLIC PANEL (NA, K, CL, CO2, GLUCOSE, BUN, CREATININE, CA) 2022-11-10 07:14:00 Guanako [facility] CBC WITH DIFF 2022-11-10 07:14:00 Guanako [facility] XR CHEST 1 VW 2022-11-09 07:53:00 Marisol Devlin [facility] LIPASE 2022-11-09 07:53:00 Marisol Devlin [facility] TROPONIN I 2022-11-09 07:53:00 Marisol Devlin [facility] COMP. METABOLIC PANEL ([id number]) 2022-11-09 07:53:00 Marisol Devlin [facility] CBC WITH DIFF 2022-11-09 07:53:00 Marisol Devlin [facility] N-TERMINAL PRO-BNP 2022-11-09 07:53:00 Marisol Devlin [facility] ACUTE CARE ARTERIAL BLOOD GAS 2022-11-09 07:50:00 Marisol Devlin [facility] HB ECG ROUTINE & RHYTHM STRIP 2022-11-09 07:39:47 Marisol Devlin [facility] ASSIGNMENT OF BENEFITS 2021-05-20 19:26:54 Duran eduardo Unassigned, [place] [facility] POCT URINALYSIS AUTO 2020-12-18 19:04:00 Zeus Turner [facility] CT ABDOMEN PELVIS W CONTRAST 2020-12-12 17:25:03 Francisca Bryant [facility] BASIC METABOLIC PANEL (NA, K, CL, CO2, GLUCOSE, BUN, CREATININE, CA) 2020-12-12 16:47:00 Francisca Bryant [facility] CBC WITH DIFF 2020-12-12 16:47:00 [facility] 2020-12[facility]12 16:47:00 [facility] NOTICE OF PRIVACY PRACTICES 2020-12-12 16:28:57 Doctor Unassigned, Wye [facility] CONSENT/REFUSAL FOR DIAGNOSIS AND TREATMENT 2020-12-12 16:28:23 Doctor Unassigned, Wye [facility] POCT URINALYSIS AUTO 2020-12-08 18:56:00 Jeanette Mcdaniel [facility] CONSENT/REFUSAL FOR DIAGNOSIS AND TREATMENT 2020-12-08 18:26:17 Doctor Unassigned, Wye [facility] ASSIGNMENT OF BENEFITS 2020-12-08 18:25:58 Duran eduardo Unassigned, Wye [facility] AUTHORIZATION FOR RELEASE OF PHI 2020-02-20 05:01:00 Doctor Unassigned, Wye [facility] NOTICE OF PRIVACY PRACTICES 2019-05-04 04:10:29 Doctor Unassigned, Wye [facility] CONSENT/REFUSAL FOR DIAGNOSIS AND TREATMENT 2019-05-04 04:10:09 Doctor Unassigned, Wye [facility] Encounters Start Date/Time End Date/Time Encounter Type Admission Type Attending [facility] Care Facility Care Department Encounter ID Source 2021-07-19 08:46:33 Emergency [facility] [id number] [facility] 2023-07-21 10:00:00 2023-07-21 10:00:00 Outpatient R AUSTYN MARYNOMI CLIFTON [facility] [id number] [facility] 2023-07-15 00:00:00 2023-07-15 00:00:00 Case Management Nomi Mary [facility] [id number] [facility] 2023-07-08 00:00:00 2023-07-08 00:00:00 [facility] [id number] [id number] [facility] 2023-07-08 00:00:00 2023-07-08 00:00:00 Orders Only Doctor Unassigned, Wye [facility] [id number] [facility] 2023-04-22 00:00:00 2023-04-22 00:00:00 Outpatient R MARY YENNIVLADISLAVYENNI CLIFTONFLTim [facility] [id number] [facility] 2023-04-19 10:00:00 2023-04-19 10:53:24 Outpatient R NOMI MARY [facility] [id number] [facility] 2023-04-19 10:00:00 2023-04-19 10:53:24 Office Visit Mathew [facility] 1.2.114 350.1.13.10 4.2.7.2.686 [id number] 085 [id number] [facility] 2023-04-19 00:00:00 2023-04-19 00:00:00 Patient Outreach Marika Monge 1.2.114 350.1.13.10 4.2.7.2.686 [id number] [facility] 2023-03-01 16:30:00 2023-03-01 17:00:00 [facility] 1.284.114 350.1.13.10 4.2.7.2.686 [id number] 092 [id number] [facility] 2023-03-01 16:30:00 2023-03-01 16:30:00 Outpatient R [facility] [id number] [facility] 2023-03-01 00:00:00 2023-03-01 00:00:00 Orders Only Doctor Unassigned, Wye [facility] 1..114 350.1.13.10 4.2.7.2.686 [id number] [id number] [facility] 2023-03-01 00:00:00 2023-03-01 00:00:00 Refill Mily Goodwin [facility] 1.84.114 350.1.13.10 4.2.7.2.686 [id number] 044 [id number] [facility] 2023-02-21 00:00:00 2023-02-21 00:00:00 Transition of Care Taylor Frye 1.2114 350.1.13.10 4.2.7.2.686 [id number] [facility] 2023-02-15 14:41:00 2023-02-18 16:11:00 Inpatient X [facility]VIS [facility] [id number] [facility] 2023-02-15 14:41:00 2023-02-18 16:11:00 Hospital Encounter Iza Varma Sandra J Oville, Jelani [facility] 1.2.114 350.1.13.10 4.2.7.2.686 [id number] 081 [id number] [facility] 2023-02-07 14:30:00 2023-02-07 16:01:00 Emergency X [facility] ERT [id number] [facility] 2023-02-07 14:30:00 2023-02-07 16:01:00 Emergency Pradip Austin [facility] 1.2.840.114 350.1.13.10 4.2.7.2.686 [id number] 084 [id number] [facility] 2023-02-07 10:20:00 2023-02-07 10:20:00 Outpatient CARL ALDRIDGE [facility]RISTINE [facility] [id number] [facility] 2023-02-05 14:53:00 2023-02-05 16:10:00 Emergency X [facility] [id number] [facility] 2023-02-05 14:53:00 2023-02-05 16:10:00 Emergency Herminia Cho [facility] 1.2.840.114 350.1.13.10 4.2.7.2.686 [id number] [id number] [facility] 2023-02-04 15:26:00 2023-02-04 16:25:00 Emergency X [facility] ERT [id number] [facility] 2023-02-04 15:26:00 2023-02-04 16:25:00 Emergency Francisca Bryant [facility] 1.2.840.114 350.1.13.10 4.2.7.2.686 [id number] 084 [id number] [facility] 2023-02-03 17:46:00 2023-02-03 18:47:00 Emergency X [facility] ERT [id number] [facility] 2023-02-03 17:46:00 2023-02-03 18:47:00 Emergency X [facility] ERT [id number] [facility] 2023-02-03 17:46:00 2023-02-03 18:47:00 Emergency Louis Hong [facility] 1.2.840.114 350.1.13.10 4.2.7.2.686 [id number] 084 [id number] [facility] 2023-02-03 12:43:00 2023-02-03 15:04:00 Emergency Bessie Oswald [facility] 1.2.840.114 350.1.13.10 4.2.7.2.686 [id number] 084 [id number] [facility] 2023-02-02 16:49:00 2023-02-02 18:10:00 Emergency X [facility] ERT [id number] [facility] 2023-02-02 16:49:00 2023-02-02 18:10:00 Emergency Louis Hong [facility] 1.2.840.114 350.1.13.10 4.2.7.2.686 [id number] 084 [id number] [facility] 2023-01-31 13:55:00 2023-01-31 16:50:00 Emergency X [facility] ERT [id number] [facility] 2023-01-31 13:55:00 2023-01-31 16:50:00 Emergency X [facility] ERT [id number] [facility] 2023-01-31 13:55:00 2023-01-31 16:50:00 Emergency Rachael Flowers [facility] 1.2.840.114 350.1.13.10 4.2.7.2.686 [id number] 084 [id number] [facility] 2023-01-31 11:11:00 2023-01-31 12:12:00 Emergency X [facility] ERT [id number] [facility] 2023-01-31 11:11:00 2023-01-31 12:12:00 Emergency Leobardo Sloan [facility] 1.2.840.114 350.1.13.10 4.2.7.2.686 [id number] 084 [id number] [facility] 2023-01-31 09:51:00 2023-01-31 10:16:00 Emergency [facility] 1.2.840.114 350.1.13.10 4.2.7.2.686 [id number] 084 [id number] [facility] 2023-01-29 08:08:00 2023-01-29 10:00:00 Emergency X HERMINIA [facility] ERT [id number] [facility] 2023-01-29 08:08:00 2023-01-29 10:00:00 Emergency Herminia Cho [facility] 1.2.840.114 350.1.13.10 4.2.7.2.686 [id number] 084 [id number] [facility] 2023-01-27 04:50:00 2023-01-27 07:03:00 Emergency X SIMONEBESSIE [facility] ERT [id number] [facility] 2023-01-27 04:50:00 2023-01-27 07:03:00 Emergency Bessie Oswald [facility] 1.2.840.114 350.1.13.10 4.2.7.2.686 [id number] 084 [id number] [facility] 2023-01-27 00:00:00 2023-01-27 00:00:00 Telephone Nomi Mary [facility] 1.2.840.114 350.1.13.10 4.2.7.2.686 [id number] 085 [id number] [facility] 2023-01-24 12:28:00 2023-01-24 16:16:00 Emergency X [facility] ERT [id number] [facility] 2023-01-24 12:28:00 2023-01-24 16:16:00 Emergency Stephanie Almonte [facility] 1.2.840.114 350.1.13.10 4.2.7.2.686 [id number] 084 [id number] [facility] 2023-01-23 19:02:00 2023-01-23 20:36:00 Emergency X IZA [facility] ERT [id number] [facility] 2023-01-23 19:02:00 2023-01-23 20:36:00 Emergency Iza Varma [facility] 1.2.840.114 350.1.13.10 4.2.7.2.686 [id number] 084 [id number] [facility] 2023-01-22 18:24:00 2023-01-22 19:55:00 Emergency X IZA [facility] ERT [id number] [facility] 2023-01-22 18:24:00 2023-01-22 19:55:00 Emergency Iza Varma [facility] 1.2.840.114 350.1.13.10 4.2.7.2.686 [id number] 084 [id number] [facility] 2023-01-21 14:20:00 2023-01-21 18:14:00 Emergency [facility] ERT [id number] [facility] 2023-01-21 14:20:00 2023-01-21 18:14:00 Emergency Louis [facility] 1.2.840.114 350.1.13.10 4.2.7.2.686 [id number] 084 [id number] [facility] 2023-01-20 00:00:00 2023-01-20 00:00:00 Transition of Care Taylor Frye 1.2.840.114 350.1.13.10 4.2.7.2.686 [id number] [facility] 2023-01-19 01:15:00 2023-01-19 19:40:00 Hospital Encounter [facility] , Kathia Varma, Iza Hackett, María Escobar [facility] 1.2.840.114 350.1.13.10 4.2.7.2.686 [id number] 080 [id number] [facility] 2023-01-17 05:57:00 2023-01-17 07:37:00 Emergency X [facility] ERT [id number] [facility] 2023-01-17 05:57:00 2023-01-17 07:37:00 Emergency Marisol Devlin [facility] 1.2.840.114 350.1.13.10 4.2.7.2.686 [id number] 084 [id number] [facility] 2023-01-17 05:57:00 2023-01-17 07:37:00 Emergency X [facility] ERT [id number] [facility] 2023-01-10 00:00:00 2023-01-10 00:00:00 Letter (Out) Herminia Oh [facility] 1..840.114 350.1.13.10 4.2.7.2.686 [id number] 092 [id number] [facility] 2023-01-07 14:30:00 2023-01-07 15:25:56 Outpatient R HERMINIA OH [facility] [id number] [facility] 2023-01-07 14:30:00 2023-01-07 15:25:56 Office Visit Herminia Oh [facility] 1.840.114 350.1.13.10 4.2.7.2.686 [id number] 092 [id number] [facility] 2022-12-26 10:50:00 2022-12-26 14:12:00 Emergency X IZA [facility] ERT [id number] [facility] 2022-12-26 10:50:00 2022-12-26 14:12:00 Emergency Iza Varma S [facility] 1.84.114 350.1.13.10 4.2.7.2.686 [id number] 084 [id number] [facility] 2022-12-14 11:30:00 2022-12-14 11:30:00 Outpatient R NOMI MARY SHIFLTim [facility] [id number] [facility] 2022-12-14 00:00:00 2022-12-14 00:00:00 Transition of Care Taylor Frye [facility] 1.840.114 350.1.13.10 4.2.7.2.686 [id number] [facility] 2022-12-10 18:49:00 2022-12-12 14:35:00 Outpatient X TRAVIS ZENG [facility] [id number] [facility] 2022-12-10 18:49:00 2022-12-12 14:35:00 Hospital Encounter Louis Hong Mohammad A. Oville, Jelani [facility] 1.840.114 350.1.13.10 4.2.7.2.686 [id number] 081 [id number] [facility] 2022-12-10 00:00:00 2022-12-10 00:00:00 Case Management Nomi Mary [facility] 1.2.840.114 350.1.13.10 4.2.7.2.686 [id number] 085 [id number] [facility] 2022-12-10 00:00:00 2022-12-10 00:00:00 Transition of Care Cecy Caro 1.2.840.114 350.1.13.10 4.2.7.2.686 [id number] 403 [id number] [facility] 2022-12-09 00:00:00 2022-12-09 00:00:00 Orders Only Doctor Unassigned, Wye [facility] 1.2.840.114 350.1.13.10 4.2.7.2.686 [id number] [id number] [facility] 2022-12-06 00:00:00 2022-12-06 00:00:00 Transition of Care Taylor Frye 1.2.840.114 350.1.13.10 4.2.7.2.686 [id number] 403 [id number] [facility] 2022-12-02 00:13:00 2022-12-04 12:30:00 Hospital Encounter Carlo Maki, Abi Contreras, [facility] 1.2.840.114 350.1.13.10 4.2.7.2.686 [id number] [facility] 2022-12-01 05:32:00 2022-12-01 09:08:00 Emergency ERNESTO SHANE [facility] ERT [id number] [facility] 2022-12-01 05:32:00 2022-12-01 09:08:00 Emergency Marisol Devlin Charles Davis, Elizabeth [facility] 1.2.840.114 350.1.13.10 4.2.7.2.686 [id number] 084 [id number] [facility] 2022-12-01 05:32:00 2022-12-01 09:08:00 Emergency U ERNESTO PIPER [facility] ERT [id number] [facility] 2022-11-26 22:55:00 2022-11-28 13:50:00 Outpatient X DHARMESH [facility] [id number] [facility] 2022-11-26 22:55:00 2022-11-28 13:50:00 Hospital Encounter Bessie Oswald David Abdullah, Yaman [facility] 1.840.114 350.1.13.10 4.2.7.2.686 [id number] [facility] 2022-11-19 02:17:00 2022-11-19 05:12:00 Emergency [facility] [id number] [facility] 2022-11-19 02:17:00 2022-11-19 05:12:00 Emergency Sandro Varmaosbaldo Chandler [facility] 1.840.114 350.1.13.10 4.2.7.2.686 [id number] 084 [id number] [facility] 2022-11-18 18:52:00 2022-11-18 20:29:00 Emergency X [facility] ERT [id number] [facility] 2022-11-18 18:52:00 2022-11-18 20:29:00 Emergency Francisca Bryant [facility] 1.2840.114 350.1.13.10 4.2.7.2.686 [id number] 084 [id number] [facility] 2022-11-17 00:00:00 2022-11-17 00:00:00 Telephone Nomi Mary [facility] 1.2840.114 350.1.13.10 4.2.7.2.686 [id number] 085 [id number] [facility] 2022-11-12 00:00:00 2022-11-12 00:00:00 Transition of Care Frye Taylor B GARY GIORDANO 1.2840.114 350.1.13.10 4.2.7.2.686 [id number] [facility] 2022-11-09 01:32:00 2022-11-11 13:35:00 Inpatient X DAVEYRADHA [facility] [id number] [facility] 2022-11-09 01:32:00 2022-11-11 13:35:00 Hospital Encounter Claus [facility] 1.2840.114 350.1.13.10 4.2.7.2.686 [id number] 081 [id number] [facility] 2021-05-22 00:00:00 2021-05-22 00:00:00 Telephone Jeanette Mcdaniel [facility] 1.20.114 350.1.13.10 4.2.7.2.686 [id number] [facility] 2021-05-20 14:28:38 2021-05-20 14:43:38 Dental Laboratory Technician Visit Pob, Adc Lab Main Jimy [facility] 1.20.114 350.1.13.10 4.2.7.2.686 [id number] [facility] 2021-05-20 14:30:00 2021-05-20 14:30:00 [facility] [id number] [facility] 2021-05-20 00:00:00 2021-05-20 00:00:00 Orders Only Doctor Unassigned, Wye [facility] 1.20.114 350.1.13.10 4.2.7.2.686 [id number] [id number] [facility] 2021-05-20 00:00:00 2021-05-20 00:00:00 Tele[facility]ul [facility] 1.2.840.114 350.1.13.10 4.2.7.2.686 [id number] [facility] 2020-12-29 10:12:45 2020-12-29 11:07:51 Office Visit JimyGokul [facility] 1.2.840.114 350.1.13.10 4.2.7.2.686 [id number] [facility] 2020-12-29 10:15:00 2020-12-29 10:15:00 Outpatient R GOKUL TURNER [facility] [id number] [facility] 2020-12-18 13:36:17 2020-12-18 14:58:35 Office Visit Gokul Turner Rm, Adc Surg Spec Procedure [facility] 1.2.840.114 350.1.13.10 4.2.7.2.686 [id number] [facility] 2020-12-18 14:00:00 2020-12-18 14:00:00 Outpatient R GOKUL TURNER [facility] [id number] [facility] 2020-12-16 00:00:00 2020-12-16 00:00:00 Outpatient R JEANETTE MCDANIEL [facility] [id number] [facility] 2020-12-16 00:00:00 2020-12-16 00:00:00 Telephone Jeanette Mcdaniel [facility] 1.2.840.114 350.1.13.10 4.2.7.2.686 [id number] [facility] 2020-12-12 11:36:00 2020-12-12 13:42:00 Emergency SylvainFrancisca Trina [facility] 1.2.840.114 350.1.13.10 4.2.7.2.686 [id number] 084 [id number] [facility] 2020-12-12 00:00:00 2020-12-12 00:00:00 Telephone Jeanette Mcdaniel [facility] 1.2.840.114 350.1.13.10 4.2.7.2.686 [id number] [facility] 2020-12-08 13:28:10 2020-12-08 14:09:14 Office Visit Jeanette Mcdaniel [facility] 1.2.840.114 350.1.13.10 4.2.7.2.686 [id number] [facility] 2020-12-08 13:30:00 2020-12-08 13:30:00 Outpatient R YUNG MCDANIELELA [facility] [id number] [facility] 2020-12-08 00:00:00 2020-12-08 00:00:00 Orders Only Doctor Unassigned, Wye [facility] 1.2840.114 350.1.13.10 4.2.7.2.686 [id number] [id number] [facility] 2020-12-07 00:00:00 2020-12-07 00:00:00 Nurse Triage Herminia Perez [facility] 1.2.840.114 350.1.13.10 4.2.7.2.686 [id number] [facility] 2020-02-20 00:00:00 2020-02-20 00:00:00 Orders Only Doctor Unassigned, Wye [facility] 1.2.840.114 350.1.13.10 4.2.7.2.686 [id number] [id number] 2020-02-20 00:00:00 2020-02-20 00:00:00 Orders Only Doctor Unassigned, Wye [facility] 1.2.840.114 350.1.13.10 4.2.7.2.686 [id number] [id number] [facility] 2019-08-28 08:25:33 2019-08-28 11:54:00 Emergency X [facility] ERT [id number] [facility] 2019-08-24 01:43:17 2019-08-24 03:52:00 Emergency X [facility] ERT [id number] [facility] 2019-05-03 23:28:18 2019-05-04 00:27:00 Emergency Ramesh Encinas [facility] 1.2.840.114 350.1.13.10 4.2.7.2.686 [id number] 084 [id number] [facility] 2019-05-03 23:28:18 2019-05-04 00:27:00 Emergency Ramesh Encinas [facility] 1.2.840.114 350.1.13.10 4.2.7.2.686 [id number] 084 [id number] 2019-05-03 00:00:00 2019-05-03 00:00:00 Orders Only Doctor Unassigned, Wye [facility] 1.2.840.114 350.1.13.10 4.2.7.2.686 [id number] [id number] [facility] 2019-05-03 00:00:00 2019-05-03 00:00:00 Orders Only Doctor Unassigned, Wye [facility] 1.2.840.114 350.1.13.10 4.2.7.2.686 [id number] [id number] Results Test Description Test Time Test Comments Results Result Co mments Source [facility] (68167)2023-02-15 21:00:57* Test Item Value Reference Range Interpretation Comme nts NA (test code = 5909883473) 133 mmol/L 135-145 L K (test code = 6803721967) 4.5 mmol/L 3.5-5.0 CL (test code = 5473985657) 90 mmol/L 98-108 L CO2 TOTAL (test code = 8539755878) 40 mmol/L 23-31 H AGAP (test code = 9684474765) 3 2-16 BUN (test code = 5530239650) 25 mg/dL 7-23 H GLUCOSE (test code = 1209524269) 107 mg/dL 70-110 CREATININE (test code = 1496968454) 0.88 mg/dL 0.60-1.25 TOTAL BILI (test code = 5428043847) 1.6 mg/dL 0.1-1.1 H CALCIUM (test code = 6181421068) 8.9 mg/dL 8.6-10.6 T PROTEIN (test code = 9862801092) 6.1 g/dL 6.3-8.2 L ALBUMIN (test code = 4732599213) 3.7 g/dL 3.5-5.0 ALK PHOS (test code = 1836914094) 56 U/L 34-122 ALTv (test code = 1742-6) 14 U/L 5-50 AST(SGOT) (test code = 2353977070) 12 U/L 13-40 L eGFR (test code = 3820421800) 87.2 mL/min/1.73m2 OMAYRA (test code = OMAYRA) [...] imaging tests). Lab Interpretation (test code = 77039-9) Abnormal [facility]23-[facility]30 21:00:57* Test Item Value Reference Range Interpretation Comme nts MAGNESIUM (test code = 9795394800) 2.0 mg/dL 1.7-2.4 Lab Interpretation (test cod e = 25138-6) Normal [facility] WITH [id number] 20:53:39* Test Item Value Reference Range Interpretation Comme nts WBC (test code = 6690-2) 9.03 See_Comment [Automated [employer]] The system which generated this result transmitted reference range: 4.20 - 10.70 10*3/?L. The reference range was not used to interpret this result as normal/abnormal. RBC (test code = 789-8) 4.50 See_Comment [Automated [employer]] The system which generated this result transmitted [...] 33.0 g/dL 31.2-35.0 RDW-SD (test code = 54923-1) 50.1 fL 38.5-51.6 RDW-CV (test code = 788-0) 13.6 % 12.1-15.4 PLT (test code = 777-3) 223 See_Comment [Automated messa ge] The system which generated this result transmitted reference range: 150 - 328 10*3/?L. The reference range was not used to interpret this result as normal/abnormal. MPV (test code = 08711-7) 12.1 fL 9.8-13.0 NRBC/100 WBC (test code = 0911035041) 0.0 See_Comment [Automated naaptol ssage] The system which generated this result transmitted reference range: 0.0 - 10.0 /100 WBCs. The reference range was not used to interpret this result as normal/abnormal. NRBC x10^3 (test code = 1784324450) See_Comment [Automated messa ge] The system which generated this result transmitted reference range: 10*3/?L. The reference range was not used to interpret this result as normal/abnormal. GRAN MAT (NEUT) % (test code = 770-8) 72.8 % IMM GRAN % (test code = 2858128102) 0.90 % LYMPH % (test code = 736-9) 17.7 % MONO % (test code = 5905-5) 7.4 % EOS % (test code = 713-8) 0.9 % BASO % (test code = 706-2) 0.3 % GRAN MAT x10^3(ANC) (test code = 1984456144) 6.57 10*3/uL 1.99-6.95 IMM GRAN x10^3 (test code = 1258720526) 0.08 10*3/uL 0.00-0.06 H LYMPH x10^3 (test code = 731-0) 1.60 10*3/uL 1.09-3.23 MONO x10^3 (test code = 742-7) 0.67 10*3/uL 0.36-1.02 EOS x10^3 (test code = 711-2) 0.08 10*3/uL 0.06-0.53 BASO x10^3 (test code = 704-7) 0.03 10*3/uL 0.01-0.09 Lab Interpretation (test code = 44915-5) [facility] + LACTIC [id number] 20:11:20* Test Item Value Reference Range Interpretation Comme nts PH (test code = 7362993591) 7.33 7.32-7.42 PCO2 ERVIN (test code = 6529858427) 75 See_Comment H [Automated messa ge] The system which generated this result transmitted reference range: 41 - 51 mmHg. The reference range was not used to interpret this result as normal/abnormal. PO2 ERVIN (test code = 3233422936) 20 See_Comment L [Automated messa ge] The system which generated this result transmitted reference range: 25 - 40 mmHg. The reference range was not used to interpret this result as normal/abnormal. HCO3 ERVIN (test code = 9117061210) 39 See_Comment H [Automated messa ge] The system which generated this result transmitted reference range: 24 - 28 mEq/L. The reference range was not used to interpret this result as normal/abnormal. AC VBE(BEAKER) (test code = 9312907465) 9.1 mEq/L THB ERVIN (test code = 4535025098) 15.9 g/dL 13.5-18.0 %O2HB ERVIN (test code = 1335030772) 30.0 % 52.0-63.0 L %COHB ERVIN (test code = 4679837469) 4.1 % 0.0-1.5 H %METHB ERVIN (test code = 9326335449) 0.3 % 0.4-1.5 L VOL%O2 ERVIN (test code = 1358893045) 6.7 % 6.0-12.0 NA (test code = 9074664755) 137 mmol/L 135-145 K+ (test code = 1865152624) 4.5 mmol/L 3.5-5.0 AC CA IONZ (test code = 9031987621) 4.60 mg/dL 4.50-5.30 GLUCOSE (test code = 6433886656) 113 mg/dL 70-110 H LACTIC ACID (test code = 6544056481) 1.65 mmol/L 0.50-2.20 Lab Interpretation (test code = 25554-8) [id number] 21:20:05* Test Item Value Reference Range Interpretation Comme nts TROPONIN I (test code = 8204324873) 0.005 ng/mL <=0.034 OMAYRA (test code = [...] of biotin. Lab Interpretation (test code = 99990-0) [facility] [id number] 21:17:24* Test Item Value Reference Range Interpretation Comme nts NT-proBNP (test code = 1809137620) 712 pg/mL <=125 H OMAYRA (test code = OMAYRA) Biotin has been reported to cause a negative bias, interpret results relative to patient's use of biotin. 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 METABOLIC PANEL (61527)2023-01-31 21:10:01* Test Item Value Reference Range Interpretation Comme nts NA (test code = 6962905916) 142 mmol/L 135-145 K (test code = 2976063811) 4.7 mmol/L 3.5-5.0 CL (test code = 2888571212) 99 mmol/L 98-108 CO2 TOTAL (test code = 4535526498) 37 mmol/L 23-31 H AGAP (test code = 7587168643) 6 2-16 BUN (test code = 7402998120) 30 mg/dL 7-23 H GLUCOSE (test code = 4537859014) 100 mg/dL 70-110 CREATININE (test code = 9208579383) 0.61 mg/dL 0.60-1.25 TOTAL BILI (test code = 4879552870) 0.6 mg/dL 0.1-1.1 CALCIUM (test code = 1570590996) 8.8 mg/dL 8.6-10.6 T PROTEIN (test code = 3775382381) 5.9 g/dL 6.3-8.2 L ALBUMIN (test code = 6894296934) 3.5 g/dL 3.5-5.0 ALK PHOS (test code = 9396521903) 42 U/L 34-122 ALTv (test code = 1742-6) 16 U/L 5-50 AST(SGOT) (test code = 5917432872) 12 U/L 13-40 L eGFR (test code = 5655058380) 133.1 mL/min/1.73m2 OMAYRA (test code = OMAYRA) [...] imaging tests). Lab Interpretation (test code = 66591-3) Abnormal [facility] WITH [id number] 20:59:58* Test Item Value Reference Range Interpretation [...] g/dL 31.2-35.0 L RDW-SD (test code = 52802-0) 61.6 fL 38.5-51.6 H RDW-CV (test code = 788-0) 16.2 % 12.1-15.4 H PLT (test code = 777-3) 250 See_Comment [Automated message] The system which generated this result transmitted reference range: 150 - 328 10*3/?L. The reference range was not used to interpret this result as normal/abnormal. MPV (test code = 05312-3) 10.5 fL 9.8-13.0 NRBC/100 WBC (test code = 9998844240) 0.0 See_Comment [Automated message] The system which generated this result transmitted reference range: 0.0 - 10.0 /100 WBCs. The reference range was not used to interpret this result as normal/abnormal. NRBC x10^3 (test code = 7389155228) See_Comment [Automated message] The system which generated this result transmitted reference range: 10*3/?L. The reference range was not used to interpret this result as normal/abnormal. GRAN MAT (NEUT) % (test code = 770-8) 90.9 % IMM GRAN % (test code = 8191330152) 1.20 % LYMPH % (test code = 736-9) 3.9 % MONO % (test code = 5905-5) 3.8 % EOS % (test code = 713-8) 0.0 % BASO % (test code = 706-2) 0.2 % GRAN MAT x10^3(ANC) (test code = 2747163491) 11.83 10*3/uL 1.99-6.95 H IMM GRAN x10^3 (test code = 5296198175) 0.16 10*3/uL 0.00-0.06 H LYMPH x10^3 (test code = 731-0) 0.51 10*3/uL 1.09-3.23 L MONO x10^3 (test code = 742-7) 0.49 10*3/uL 0.36-1.02 EOS x10^3 (test code = 711-2) 0.06-0.53 L BASO x10^3 (test code = 704-7) 0.03 10*3/uL 0.01-0.09 Lab Interpretation (test code = 63747-2) [facility] [id number] 11:16:36* Test Item Value Reference Range Interpretation Comme nts TROPONIN I (test code = 7377122428) 0.002 ng/mL <=0.034 OMAYRA (test code = [...] of biotin. Lab Interpretation (test code = 53578-7) [facility] [id number] 11:13:18* Test Item Value Reference Range Interpretation Comme nts NT-proBNP (test code = 6996923488) 112 pg/mL <=125 OMAYRA (test code = OMAYRA) Biotin has been reported to cause a negative bias, interpret results relative to patient's use of biotin. Lab Interpretation (test code = 20453-7) Normal [facility] METABOLIC PANEL (NA, K, CL, CO2, GLUCOSE, BUN, CREATININE, CA)2023-01-27 11:04:56* Test Item Value Reference Range Interpretation Comme nts NA (test code = 8229668213) 136 mmol/L 135-145 K (test code = 6916069151) 4.1 mmol/L 3.5-5.0 CL (test code = 2870556532) 96 mmol/L 98-108 L CO2 TOTAL (test code = 4980746187) 34 mmol/L 23-31 H AGAP (test code = 5241507033) 6 2-16 BUN (test code = 4214207617) 22 mg/dL 7-23 GLUCOSE (test code = 5738153672) 117 mg/dL 70-110 H CREATININE (test code = 7277585019) 0.55 mg/dL 0.60-1.25 L CALCIUM (test code = 6978483808) 8.4 mg/dL 8.6-10.6 L eGFR (test code = 1624631943) 150.0 mL/min/1.73m2 OMAYRA (test code = OMAYRA) [...] imaging tests). Lab Interpretation (test code = 91332-8) Abnormal [facility] WITH [id number] 10:38:33* Test Item Value Reference Range Interpretation Comme nts WBC (test code = 6690-2) 9.56 See_Comment [Automated [employer]] The system which generated this result transmitted reference range: 4.20 - 10.70 10*3/?L. The reference range was not used to interpret this result as normal/abnormal. RBC (test code = 789-8) 4.31 See_Comment [Automated [employer]] The system which generated this result transmitted [...] 31.8 g/dL 31.2-35.0 RDW-SD (test code = 19764-1) 56.7 fL 38.5-51.6 H RDW-CV (test code = 788-0) 15.3 % 12.1-15.4 PLT (test code = 777-3) 220 See_Comment [Automated [employer]] The system which generated this result transmitted reference range: 150 - 328 10*3/?L. The reference range was not used to interpret this result as normal/abnormal. MPV (test code = 64765-4) 10.6 fL 9.8-13.0 NRBC/100 WBC (test code = 7585604974) 0.0 See_Comment [Automated me ssage] The system which generated this result transmitted reference range: 0.0 - 10.0 /100 WBCs. The reference range was not used to interpret this result as normal/abnormal. NRBC x10^3 (test code = 4996761748) See_Comment [Automated messa ge] The system which generated this result transmitted reference range: 10*3/?L. The reference range was not used to interpret this result as normal/abnormal. GRAN MAT (NEUT) % (test code = 770-8) 60.0 % IMM GRAN % (test code = 9430339303) 0.70 % LYMPH % (test code = 736-9) 26.5 % MONO % (test code = 5905-5) 11.4 % EOS % (test code = 713-8) 0.9 % BASO % (test code = 706-2) 0.5 % GRAN MAT x10^3(ANC) (test code = 2386994708) 5.73 10*3/uL 1.99-6.95 IMM GRAN x10^3 (test code = 0127068403) 0.07 10*3/uL 0.00-0.06 H LYMPH x10^3 (test code = 731-0) 2.53 10*3/uL 1.09-3.23 MONO x10^3 (test code = 742-7) 1.09 10*3/uL 0.36-1.02 H EOS x10^3 (test code = 711-2) 0.09 10*3/uL 0.06-0.53 BASO x10^3 (test code = 704-7) 0.05 10*3/uL 0.01-0.09 Lab Interpretation (test code = 63908-8) [facility], [id number] 18:51:59* Test Item Value Reference Range Interpretation Comme nts AMMONIA (test code = 6342208075) 9-33 L Lab Interpretation (test cod e = 33741-6) [facility] ABG + LACTIC [id number] 18:40:53* Test Item Value Reference Range Interpretation Comme nts PH (test code = 2) 7.43 7.35-7.45 PCO2 (test code = 5322248075) 53 See_Comment H [Automated messa ge] The system which generated this result transmitted reference range: 35 - 45 mmHg. The reference range was not used to interpret this result as normal/abnormal. PO2 (test code = 2208260761) 49 See_Comment L [Automated messa ge] The system which generated this result transmitted reference range: 80 - 100 mmHg. The reference range was not used to interpret this result as normal/abnormal. HCO3 (test code = 3728112276) 34 See_Comment H [Automated messa ge] The system which generated this result transmitted reference range: 22 - 26 mEq/L. The reference range was not used to interpret this result as normal/abnormal. BE (test code = 9571382768) 7.8 See_Comment H [Automated messa ge] The system which generated this result transmitted reference range: -3.0 - 3.0 mEq/L. The reference range was not used to interpret this result as normal/abnormal. LACTIC ACID (test code = 0694685122) 0.92 mmol/L 0.50-2.20 Lab Interpretation (test code = 12636-0) [facility]normal [facility]neyTroponin [id number] 18:28:26* Test Item Value Reference Range Interpretation Comme nts TROPONIN I (test code = 7359953599) 0.003 ng/mL <=0.034 OMAYRA (test code = [...] of biotin. Lab Interpretation (test code = 36540-0) Normal [facility]-TERMINAL [id number] 18:25:29* Test Item Value Reference Range Interpretation Comme nts NT-proBNP (test code = 4365807350) 376 pg/mL <=125 H OMAYRA (test code = OMAYRA) Biotin has been reported to cause a negative bias, interpret results relative to patient's use of biotin. Lab Interpretation (test code = 04129-9) Abnormal [facility] Metabolic Panel (23114)2023-01-24 18:24:03* Test Item Value Reference Range Interpretation Comme nts NA (test code = 8384861156) 135 mmol/L 135-145 K (test code = 5446856299) 4.0 mmol/L 3.5-5.0 CL (test code = 5498036774) 90 mmol/L 98-108 L CO2 TOTAL (test code = 1816315601) 43 mmol/L 23-31 H AGAP (test code = 5226159305) 2 2-16 BUN (test code = 7184572240) 12 mg/dL 7-23 GLUCOSE (test code = 2192022878) 92 mg/dL 70-110 CREATININE (test code = 8855122348) 0.58 mg/dL 0.60-1.25 L TOTAL BILI (test code = 1940671956) 1.3 mg/dL 0.1-1.1 H CALCIUM (test code = 7937186574) 8.6 mg/dL 8.6-10.6 T PROTEIN (test code = 7642064772) 6.0 g/dL 6.3-8.2 L ALBUMIN (test code = 5923545647) 3.6 g/dL 3.5-5.0 ALK PHOS (test code = 9382551474) 52 U/L 34-122 ALTv (test code = 1742-6) 17 U/L 5-50 AST(SGOT) (test code = 9004077582) 10 U/L 13-40 L eGFR (test code = 0430549919) 141.1 mL/min/1.73m2 OMAYRA (test code = OMAYRA) [...] imaging tests). Lab Interpretation (test code = 33650-8) [facility]2023-[facility]-08 18:23:38 ALCOHOL<10mg/dL01/24/2023 1:23 PM [facility]<10 Ffbtiopf97-521 Toxic>100 Depression of CORRUGATOR OPERATOR HELPER>400 Fatalities [facility]ortedUnTexas [facility] MansfieldCBC with Sqrmdquwxhdm5928-14-12 18:09:00* Test Item Value Reference Range Interpretation Comme nts WBC (test code = 6690-2) 7.84 See_Comment [[employer]] The system which generated this result transmitted reference range: 4.20 - 10.70 10*3/?L. The reference range was not used to interpret this result as normal/abnormal. RBC (test code = 789-8) 4.46 See_Comment [[employer]] The system which generated this result transmitted [...] g/dL 31.2-35.0 L RDW-SD (test code = 10531-0) 59.7 fL 38.5-51.6 H RDW-CV (test code = 788-0) 15.8 % 12.1-15.4 H PLT (test code = 777-3) 239 See_Comment [Automated [employer]] The system which generated this result transmitted reference range: 150 - 328 10*3/?L. The reference range was not used to interpret this result as normal/abnormal. MPV (test code = 93576-8) 10.5 fL 9.8-13.0 NRBC/100 WBC (test code = 8247479205) 0.0 See_Comment [Automated naaptol ssage] The system which generated this result transmitted reference range: 0.0 - 10.0 /100 WBCs. The reference range was not used to interpret this result as normal/abnormal. NRBC x10^3 (test code = 0434182870) See_Comment [Automated [employer]] The system which generated this result transmitted reference range: 10*3/?L. The reference range was not used to interpret this result as normal/abnormal. GRAN MAT (NEUT) % (test code = 770-8) 64.5 % IMM GRAN % (test code = 0604651347) 0.40 % LYMPH % (test code = 736-9) 23.1 % MONO % (test code = 5905-5) 9.8 % EOS % (test code = 713-8) 1.8 % BASO % (test code = 706-2) 0.4 % GRAN MAT x10^3(ANC) (test code = 0029618666) 5.06 10*3/uL 1.99-6.95 IMM GRAN x10^3 (test code = 0053833820) 0.03 10*3/uL 0.00-0.06 LYMPH x10^3 (test code = 731-0) 1.81 10*3/uL 1.09-3.23 MONO x10^3 (test code = 742-7) 0.77 10*3/uL 0.36-1.02 EOS x10^3 (test code = 711-2) 0.14 10*3/uL 0.06-0.53 BASO x10^3 (test code = 704-7) 0.03 10*3/uL 0.01-0.09 Lab Interpretation (test code = 59097-0) Abnormal [facility]. METABOLIC PANEL (18477)2023-01-21 21:33:50* Test Item Value Reference Range Interpretation Comme nts NA (test code = 3643587811) 136 mmol/L 135-145 K (test code = 2952815588) 4.3 mmol/L 3.5-5.0 CL (test code = 3240327150) 95 mmol/L 98-108 L CO2 TOTAL (test code = 3958277587) 38 mmol/L 23-31 H AGAP (test code = 8078662791) 3 2-16 BUN (test code = 5409375956) 17 mg/dL 7-23 GLUCOSE (test code = 6718995559) 102 mg/dL 70-110 CREATININE (test code = 1795068147) 0.62 mg/dL 0.60-1.25 TOTAL BILI (test code = 6963554071) 0.8 mg/dL 0.1-1.1 CALCIUM (test code = 1746637376) 7.8 mg/dL 8.6-10.6 L T PROTEIN (test code = 2869456206) 4.9 g/dL 6.3-8.2 L ALBUMIN (test code = 8173742826) 3.0 g/dL 3.5-5.0 L ALK PHOS (test code = 6901550562) 45 U/L 34-122 ALTv (test code = 1742-6) 13 U/L 5-50 AST(SGOT) (test code = 8934415691) 11 U/L 13-40 L eGFR (test code = 2665504341) 130.6 mL/min/1.73m2 OMAYRA (test code = OMAYRA) [...] imaging tests). Lab Interpretation (test code = 18803-5) [facility]normal [facility]neyTRANGIENIN [id number] 21:11:45* Test Item Value Reference Range Interpretation Comme nts TROPONIN I (test code = 2231026868) 0.019 ng/mL <=0.034 OMAYRA (test code = [...] of biotin. Lab Interpretation (test code = 55059-0) Normal [facility]neyN-[facility]MINAL [id number]-[id number] 21:08:47* Test Item Value Reference Range Interpretation Comme nts NT-proBNP (test code = 2498285101) 266 pg/mL <=125 H Hemolyzed specimen OMAYRA (test code = OMAYRA) Biotin has been reported to cause a negative bias, interpret results relative to patient's use of biotin. Lab Interpretation (test code = 08462-6) [facility]normal [facility] McKinneyCB WITH [id number] 20:40:24* Test Item Value Reference Range Interpretation Comme nts WBC (test code = 6690-2) 6.78 See_Comment [Automated [employer]] The system which generated this result transmitted reference range: 4.20 - 10.70 10*3/?L. The reference range was not used to interpret this result as normal/abnormal. RBC (test code = 789-8) 4.47 See_Comment [Automated [employer]] The system which generated this result transmitted [...] g/dL 31.2-35.0 L RDW-SD (test code = 06001-8) 60.4 fL 38.5-51.6 H RDW-CV (test code = 788-0) 16.2 % 12.1-15.4 H PLT (test code = 777-3) 215 See_Comment [Automated [employer]] The system which generated this result transmitted reference range: 150 - 328 10*3/?L. The reference range was not used to interpret this result as normal/abnormal. MPV (test code = 02025-1) 10.9 fL 9.8-13.0 NRBC/100 WBC (test code = 7575029785) 0.0 See_Comment [Automated me ssage] The system which generated this result transmitted reference range: 0.0 - 10.0 /100 WBCs. The reference range was not used to interpret this result as normal/abnormal. NRBC x10^3 (test code = 3383363936) See_Comment [Automated messa ge] The system which generated this result transmitted reference range: 10*3/?L. The reference range was not used to interpret this result as normal/abnormal. GRAN MAT (NEUT) % (test code = 770-8) 75.4 % IMM GRAN % (test code = 5312556002) 0.40 % LYMPH % (test code = 736-9) 15.3 % MONO % (test code = 5905-5) 7.7 % EOS % (test code = 713-8) 0.9 % BASO % (test code = 706-2) 0.3 % GRAN MAT x10^3(ANC) (test code = 0736207811) 5.11 10*3/uL 1.99-6.95 IMM GRAN x10^3 (test code = 0899621078) 0.03 10*3/uL 0.00-0.06 LYMPH x10^3 (test code = 731-0) 1.04 10*3/uL 1.09-3.23 L MONO x10^3 (test code = 742-7) 0.52 10*3/uL 0.36-1.02 EOS x10^3 (test code = 711-2) 0.06 10*3/uL 0.06-0.53 BASO x10^3 (test code = 704-7) 0.01-0.09 Lab Interpretation (test code = 96032-2) [facility]neyN[facility]inal [id number]-[id number] 08:49:53* Test Item Value Reference Range Interpretation Comme nts NT-proBNP (test code = 7748393093) 158 pg/mL <=125 H OMAYRA (test code = OMAYRA) Biotin has been reported to cause a negative bias, interpret results relative to patient's use of biotin. Lab Interpretation (test code = 57445-9) [facility] McKinneyD-Ygahc5591-78-83 08:44:10* Test Item Value Reference Range Interpretation Comments D-DIMER (test code = 2857873353) See_Comment [Automated message] The system which generated [...] a diagnosis. Lab Interpretation (test code = 01031-2) Normal [facility] METABOLIC PANEL (NA, K, CL, CO2, GLUCOSE, BUN, CREATININE, CA)2023-01-19 08:41:13* Test Item Value Reference Range Interpretation Comme nts NA (test code = 2931815404) 134 mmol/L 135-145 L K (test code = 6951179842) 5.3 mmol/L 3.5-5.0 H CL (test code = 5281513502) 91 mmol/L 98-108 L CO2 TOTAL (test code = 6113670405) 40 mmol/L 23-31 H AGAP (test code = 5717096054) 3 2-16 BUN (test code = 1129433212) 14 mg/dL 7-23 GLUCOSE (test code = 2124621620) 125 mg/dL 70-110 H CREATININE (test code = 4266357148) 0.64 mg/dL 0.60-1.25 CALCIUM (test code = 7559045047) 8.5 mg/dL 8.6-10.6 L eGFR (test code = 9792794194) 125.9 mL/min/1.73m2 OMAYRA (test code = OMAYRA) [...] imaging tests). Lab Interpretation (test code = 12330-2) Abnormal [facility] WITH [id number] 08:27:33* Test Item Value Reference Range Interpretation Comme nts WBC (test code = 6690-2) 10.04 See_Comment [[employer]ated [employer]] The system which generated this result transmitted reference range: 4.20 - 10.70 10*3/?L. The reference range was not used to interpret this result as normal/abnormal. RBC (test code = 789-8) 4.35 See_Comment [[employer]ated [employer]] The system which generated this result transmitted [...] 31.2 g/dL 31.2-35.0 RDW-SD (test code = 51943-1) 58.4 fL 38.5-51.6 H RDW-CV (test code = 788-0) 15.9 % 12.1-15.4 H PLT (test code = 777-3) 211 See_Comment [Automated messa ge] The system which generated this result transmitted reference range: 150 - 328 10*3/?L. The reference range was not used to interpret this result as normal/abnormal. MPV (test code = 40091-1) 10.2 fL 9.8-13.0 NRBC/100 WBC (test code = 5898378037) 0.0 See_Comment [Automated naaptol ssage] The system which generated this result transmitted reference range: 0.0 - 10.0 /100 WBCs. The reference range was not used to interpret this result as normal/abnormal. NRBC x10^3 (test code = 4453116608) See_Comment [Automated [employer]] The system which generated this result transmitted reference range: 10*3/?L. The reference range was not used to interpret this result as normal/abnormal. GRAN MAT (NEUT) % (test code = 770-8) 81.2 % IMM GRAN % (test code = 9594156755) 0.50 % LYMPH % (test code = 736-9) 10.1 % MONO % (test code = 5905-5) 7.5 % EOS % (test code = 713-8) 0.5 % BASO % (test code = 706-2) 0.2 % GRAN MAT x10^3(ANC) (test code = 6474639110) 8.16 10*3/uL 1.99-6.95 H IMM GRAN x10^3 (test code = 5316296695) 0.05 10*3/uL 0.00-0.06 LYMPH x10^3 (test code = 731-0) 1.01 10*3/uL 1.09-3.23 L MONO x10^3 (test code = 742-7) 0.75 10*3/uL 0.36-1.02 EOS x10^3 (test code = 711-2) 0.05 10*3/uL 0.06-0.53 L BASO x10^3 (test code = 704-7) 0.01-0.09 Lab Interpretation (test code = 47231-9) [facility]TR[facility] [id number] 12:09:33* Test Item Value Reference Range Interpretation Comme nts TROPONIN I (test code = 6614894782) 0.004 ng/mL <=0.034 OMAYRA (test code = [...] of biotin. Lab Interpretation (test code = 38199-5) [facility] [id number] 12:06:16* Test Item Value Reference Range Interpretation Comme nts NT-proBNP (test code = 6820679351) 135 pg/mL <=125 H OMAYRA (test code = OMAYRA) Biotin has been reported to cause a negative bias, interpret results relative to patient's use of biotin. Lab Interpretation (test code = 13024-3) [facility]COMP[facility] Metabolic Panel (04808)2023-01-17 11:57:36* Test Item Value Reference Range Interpretation Comme nts NA (test code = 6604372733) 133 mmol/L 135-145 L K (test code = 7430362260) 5.0 mmol/L 3.5-5.0 CL (test code = 7383112969) 91 mmol/L 98-108 L CO2 TOTAL (test code = 0651946930) 33 mmol/L 23-31 H AGAP (test code = 4452190705) 9 2-16 BUN (test code = 5410998302) 10 mg/dL 7-23 GLUCOSE (test code = 0236087508) 104 mg/dL 70-110 CREATININE (test code = 4945045899) 0.63 mg/dL 0.60-1.25 TOTAL BILI (test code = 4556938277) 1.2 mg/dL 0.1-1.1 H CALCIUM (test code = 7648461740) 9.0 mg/dL 8.6-10.6 T PROTEIN (test code = 0482713100) 6.9 g/dL 6.3-8.2 ALBUMIN (test code = 9686743630) 4.4 g/dL 3.5-5.0 ALK PHOS (test code = 8242275381) 76 U/L 34-122 ALTv (test code = 1742-6) 13 U/L 5-50 AST(SGOT) (test code = 0810813350) 13 U/L 13-40 eGFR (test code = 4054026288) 128.2 mL/min/1.73m2 OMAYRA (test code = OMAYRA) [...] imaging tests). Lab Interpretation (test code = 56918-1) Abnormal [facility] with [id number] 11:30:52* Test Item Value Reference Range Interpretation Comme nts WBC (test code = 6690-2) 9.66 See_Comment [Automated [employer]] The system which generated this result transmitted reference range: 4.20 - 10.70 10*3/?L. The reference range was not used to interpret this result as normal/abnormal. RBC (test code = 789-8) 5.00 See_Comment [Automated [employer]] The system which generated this result [...] 31.2 g/dL 31.2-35.0 RDW-SD (test code = 96852-6) 56.6 fL 38.5-51.6 H RDW-CV (test code = 788-0) 15.4 % 12.1-15.4 PLT (test code = 777-3) 261 See_Comment [Automated [employer]] The system which generated this result transmitted reference range: 150 - 328 10*3/?L. The reference range was not used to interpret this result as normal/abnormal. MPV (test code = 27741-2) 10.4 fL 9.8-13.0 NRBC/100 WBC (test code = 4321969282) 0.0 See_Comment [Automated naaptol ssage] The system which generated this result transmitted reference range: 0.0 - 10.0 /100 WBCs. The reference range was not used to interpret this result as normal/abnormal. NRBC x10^3 (test code = 5420126817) See_Comment [Automated messa ge] The system which generated this result transmitted reference range: 10*3/?L. The reference range was not used to interpret this result as normal/abnormal. GRAN MAT (NEUT) % (test code = 770-8) 58.9 % IMM GRAN % (test code = 9927374457) 0.40 % LYMPH % (test code = 736-9) 28.6 % MONO % (test code = 5905-5) 10.5 % EOS % (test code = 713-8) 0.9 % BASO % (test code = 706-2) 0.7 % GRAN MAT x10^3(ANC) (test code = 5913737524) 5.69 10*3/uL 1.99-6.95 IMM GRAN x10^3 (test code = 4143723340) 0.04 10*3/uL 0.00-0.06 LYMPH x10^3 (test code = 731-0) 2.76 10*3/uL 1.09-3.23 MONO x10^3 (test code = 742-7) 1.01 10*3/uL 0.36-1.02 EOS x10^3 (test code = 711-2) 0.09 10*3/uL 0.06-0.53 BASO x10^3 (test code = 704-7) 0.07 10*3/uL 0.01-0.09 Lab Interpretation (test code = 58765-2) [facility] [id number]-[id number] 10:20:57* Test Item Value Reference Range Interpretation Comme nts NT-proBNP (test code = 6958301730) 473 pg/mL <=125 H OMAYRA (test code = OMAYRA) Biotin has been reported to cause a negative bias, interpret results relative to patient's use of biotin. Lab Interpretation (test code = 94136-2) [facility] McKinneyLIPID PANEL (74019)(TOTAL CHOLESTEROL, TRIGLYCERIDES, HDL)2022-12-12 10:18:39* Test Item Value Reference Range Interpretation Comme nts CHOL (test code = 8386527138) 133 mg/dL 120-200 HDL (test code = 6393833995) 38 mg/dL >=40 L HDLC RATIO (test code = 9620149150) 3.5 <=5.0 TRIG (test code = 2401353070) 57 mg/dL 30-170 LDL CHOL (test code = 05629-7) 84 mg/dL <=160 VLDL (test code = 8428966454) 11 mg/dL 5-60 Lab Interpretation (test cod e = 12982-8) [facility]neyMAGNESIUM2023-03-26 10:18:19* Test Item Value Reference Range Interpretation Comme nts MAGNESIUM (test code = 7642571971) 2.0 mg/dL 1.7-2.4 Lab Interpretation (test cod e = 06809-2) Normal [facility] METABOLIC PANEL (NA, K, CL, CO2, GLUCOSE, BUN, CREATININE, CA)2022-12-12 10:18:14* Test Item Value Reference Range Interpretation Comme nts NA (test code = 8241448900) 130 mmol/L 135-145 L K (test code = 5271784496) 3.7 mmol/L 3.5-5.0 CL (test code = 8536520767) 89 mmol/L 98-108 L CO2 TOTAL (test code = 4351777566) 37 mmol/L 23-31 H AGAP (test code = 4615527883) 4 2-16 BUN (test code = 0480843766) 13 mg/dL 7-23 GLUCOSE (test code = 2969024696) 120 mg/dL 70-110 H CREATININE (test code = 1721457228) 0.56 mg/dL 0.60-1.25 L CALCIUM (test code = 4900354108) 8.3 mg/dL 8.6-10.6 L eGFR (test code = 8229469783) 146.9 mL/min/1.73m2 OMAYRA (test code = OMAYRA) [...] imaging tests). Lab Interpretation (test code = 01676-5) [facility]OL2023-[facility]-25 00:54:58 ALCOHOL<10mg/dL12/10/2022 7:54 PM [facility]<10 Fkqwonzd14-890 Toxic>100 Depression of CORRUGATOR OPERATOR HELPER>400 Fatalities [facility]ortedB[facility]neyTROPONIN [id number] 00:50:14* Test Item Value Reference Range Interpretation Comme nts TROPONIN I (test code = 5548498613) 0.006 ng/mL <=0.034 OMAYRA (test code = [...] of biotin. Lab Interpretation (test code = 66812-1) [facility] VGQ-[id number] 00:47:12* Test Item Value Reference Range Interpretation Comme nts NT-proBNP (test code = 7650790093) 291 pg/mL <=125 H OMAYRA (test code = OMAYRA) Biotin has been reported to cause a negative bias, interpret results relative to patient's use of biotin. Lab Interpretation (test code = 81953-2) Abnormal [facility]. METABOLIC PANEL ([id number])2022-12-11 00:41:12* Test Item Value Reference Range Interpretation Comme nts NA (test code = 5106720669) 126 mmol/L 135-145 L K (test code = 2305884062) 4.0 mmol/L 3.5-5.0 CL (test code = 2296932725) 82 mmol/L 98-108 L CO2 TOTAL (test code = 4709128860) 40 mmol/L 23-31 H AGAP (test code = 4280721465) 4 2-16 BUN (test code = 9450685554) 16 mg/dL 7-23 GLUCOSE (test code = 1863941970) 97 mg/dL 70-110 CREATININE (test code = 1282272133) 0.67 mg/dL 0.60-1.25 TOTAL BILI (test code = 2338602981) 0.8 mg/dL 0.1-1.1 CALCIUM (test code = 2699224496) 8.5 mg/dL 8.6-10.6 L T PROTEIN (test code = 8277574352) 5.9 g/dL 6.3-8.2 L ALBUMIN (test code = 9651317781) 3.5 g/dL 3.5-5.0 ALK PHOS (test code = 3070693206) 49 U/L 34-122 ALTv (test code = 1742-6) 18 U/L 5-50 AST(SGOT) (test code = 4518095491) 11 U/L 13-40 L eGFR (test code = 9313376164) 119.4 mL/min/1.73m2 OMAYRA (test code = OMAYRA) [...] imaging tests). Lab Interpretation (test code = 04168-4) Abnormal [facility] WITH [id number] 00:29:08* Test Item Value Reference Range Interpretation Comme nts WBC (test code = 6690-2) 10.15 See_Comment [[employer]] The system which generated this result transmitted reference range: 4.20 - 10.70 10*3/?L. The reference range was not used to interpret this result as normal/abnormal. RBC (test code = 789-8) 4.52 See_Comment [[employer]] The system which generated this result transmitted [...] 32.8 g/dL 31.2-35.0 RDW-SD (test code = 36447-7) 46.7 fL 38.5-51.6 RDW-CV (test code = 788-0) 13.6 % 12.1-15.4 PLT (test code = 777-3) 263 See_Comment [Automated messa ge] The system which generated this result transmitted reference range: 150 - 328 10*3/?L. The reference range was not used to interpret this result as normal/abnormal. MPV (test code = 30658-8) 9.7 fL 9.8-13.0 L NRBC/100 WBC (test code = 7180488979) 0.0 See_Comment [Automated naaptol ssage] The system which generated this result transmitted reference range: 0.0 - 10.0 /100 WBCs. The reference range was not used to interpret this result as normal/abnormal. NRBC x10^3 (test code = 8854686325) See_Comment [Automated messa ge] The system which generated this result transmitted reference range: 10*3/?L. The reference range was not used to interpret this result as normal/abnormal. GRAN MAT (NEUT) % (test code = 770-8) 71.6 % IMM GRAN % (test code = 9763477284) 0.90 % LYMPH % (test code = 736-9) 17.6 % MONO % (test code = 5905-5) 8.7 % EOS % (test code = 713-8) 1.0 % BASO % (test code = 706-2) 0.2 % GRAN MAT x10^3(ANC) (test code = 0411922043) 7.27 10*3/uL 1.99-6.95 H IMM GRAN x10^3 (test code = 2289070401) 0.09 10*3/uL 0.00-0.06 H LYMPH x10^3 (test code = 731-0) 1.79 10*3/uL 1.09-3.23 MONO x10^3 (test code = 742-7) 0.88 10*3/uL 0.36-1.02 EOS x10^3 (test code = 711-2) 0.10 10*3/uL 0.06-0.53 BASO x10^3 (test code = 704-7) 0.01-0.09 Lab Interpretation (test code = 19548-9) [facility]neyL[facility] Acid Whole [id number] 00:14:48* Test Item Value Reference Range Interpretation Comme nts LACTIC ACID (test code = 7993994826) 1.30 mmol/L 0.50-2.20 Lab Interpretation (test cod e = 27721-0) Normal [facility] METABOLIC PANEL (NA, K, CL, CO2, GLUCOSE, BUN, CREATININE, CA)2022-12-04 11:06:33* Test Item Value Reference Range Interpretation Comme nts NA (test code = 0423744919) 123 mmol/L 135-145 L K (test code = 3417004809) 3.8 mmol/L 3.5-5.0 CL (test code = 4649771402) 86 mmol/L 98-108 L CO2 TOTAL (test code = 0298688015) 36 mmol/L 23-31 H AGAP (test code = 1431943360) 1 2-16 L BUN (test code = 9459241414) 22 mg/dL 7-23 GLUCOSE (test code = 9858992417) 195 mg/dL 70-110 H CREATININE (test code = 4529357746) 0.76 mg/dL 0.60-1.25 CALCIUM (test code = 6551754134) 8.2 mg/dL 8.6-10.6 L eGFR (test code = 9116319532) 103.3 mL/min/1.73m2 OMAYRA (test code = OMAYRA) [...] imaging tests). Lab Interpretation (test code = 69997-8) Abnormal [facility] WITH [id number] 10:54:29* Test Item Value Reference Range Interpretation Comme nts WBC (test code = 6690-2) 8.54 See_Comment [Automated [employer]] The system which generated this result transmitted reference range: 4.20 - 10.70 10*3/?L. The reference range was not used to interpret this result as normal/abnormal. RBC (test code = 789-8) 4.17 See_Comment L [Automated [employer]] The system which generated this result transmitted [...] 34.1 g/dL 31.2-35.0 RDW-SD (test code = 10802-7) 44.1 fL 38.5-51.6 RDW-CV (test code = 788-0) 13.6 % 12.1-15.4 PLT (test code = 777-3) 247 See_Comment [Automated CISSOIDa ge] The system which generated this result transmitted reference range: 150 - 328 10*3/?L. The reference range was not used to interpret this result as normal/abnormal. MPV (test code = 44506-7) 9.5 fL 9.8-13.0 L NRBC/100 WBC (test code = 0975737018) 0.0 See_Comment [Automated naaptol ssage] The system which generated this result transmitted reference range: 0.0 - 10.0 /100 WBCs. The reference range was not used to interpret this result as normal/abnormal. NRBC x10^3 (test code = 0887140267) See_Comment [Automated CISSOIDa ge] The system which generated this result transmitted reference range: 10*3/?L. The reference range was not used to interpret this result as normal/abnormal. GRAN MAT (NEUT) % (test code = 770-8) 93.0 % IMM GRAN % (test code = 8572172550) 0.90 % LYMPH % (test code = 736-9) 3.2 % MONO % (test code = 5905-5) 2.9 % EOS % (test code = 713-8) 0.0 % BASO % (test code = 706-2) 0.0 % GRAN MAT x10^3(ANC) (test code = 4503457467) 7.94 10*3/uL 1.99-6.95 H IMM GRAN x10^3 (test code = 2004025854) 0.08 10*3/uL 0.00-0.06 H LYMPH x10^3 (test code = 731-0) 0.27 10*3/uL 1.09-3.23 L MONO x10^3 (test code = 742-7) 0.25 10*3/uL 0.36-1.02 L EOS x10^3 (test code = 711-2) 0.06-0.53 L BASO x10^3 (test code = 704-7) 0.01-0.09 Lab Interpretation (test code = 04546-8) Abnormal [facility] [place] [place] Metabolic Panel (NA, K, CL, CO2, GLUCOSE, BUN, CREATININE, CA)2022-12-03 10:44:53* Test Item Value Reference Range Interpretation Comme nts NA (test code = 4409825101) 126 mmol/L 135-145 L K (test code = 3507295667) 4.0 mmol/L 3.5-5.0 Slight hemolysis CL (test code = 0825403150) 89 mmol/L 98-108 L CO2 TOTAL (test code = 3436046390) 32 mmol/L 23-31 H AGAP (test code = 7408196256) 5 2-16 BUN (test code = 5278941571) 15 mg/dL 7-23 Slight hemolysis GLUCOSE (test code = 2425277577) 115 mg/dL 70-110 H CREATININE (test code = 9514186183) 0.63 mg/dL 0.60-1.25 CALCIUM (test code = 3096908403) 7.7 mg/dL 8.6-10.6 L eGFR (test code = 3256386907) 128.2 mL/min/1.73m2 OMAYRA (test code = OMAYRA) [...] imaging tests). Lab Interpretation (test code = 57927-7) [facility]normal [facility] McKinneyMagnesium [id number] 10:44:53* Test Item Value Reference Range Interpretation Comme nts MAGNESIUM (test code = 6817752023) 1.6 mg/dL 1.7-2.4 L Lab Interpretation (test cod e = 50093-2) [facility]normal [facility]neyCB with Vzdpywastezb4132-91-95 10:39:13* Test Item Value Reference Range Interpretation [...] 33.1 g/dL 31.2-35.0 RDW-SD (test code = 59084-9) 45.4 fL 38.5-51.6 RDW-CV (test code = 788-0) 13.6 % 12.1-15.4 PLT (test code = 777-3) 254 See_Comment [Automated message] The system which generated this result transmitted reference range: 150 - 328 10*3/?L. The reference range was not used to interpret this result as normal/abnormal. MPV (test code = 09233-1) 10.2 fL 9.8-13.0 NRBC/100 WBC (test code = 4296680284) 0.0 See_Comment [Automated message] The system which generated this result transmitted reference range: 0.0 - 10.0 /100 WBCs. The reference range was not used to interpret this result as normal/abnormal. NRBC x10^3 (test code = 7139441594) See_Comment [Automated message] The system which generated this result transmitted reference range: 10*3/?L. The reference range was not used to interpret this result as normal/abnormal. GRAN MAT (NEUT) % (test code = 770-8) 90.0 % IMM GRAN % (test code = 5783542104) 0.90 % LYMPH % (test code = 736-9) 5.9 % MONO % (test code = 5905-5) 2.8 % EOS % (test code = 713-8) 0.2 % BASO % (test code = 706-2) 0.2 % GRAN MAT x10^3(ANC) (test code = 7170201136) 10.27 10*3/uL 1.99-6.95 H IMM GRAN x10^3 (test code = 1131420585) 0.10 10*3/uL 0.00-0.06 H LYMPH x10^3 (test code = 731-0) 0.67 10*3/uL 1.09-3.23 L MONO x10^3 (test code = 742-7) 0.32 10*3/uL 0.36-1.02 L EOS x10^3 (test code = 711-2) 0.06-0.53 L BASO x10^3 (test code = 704-7) 0.01-0.09 Lab Interpretation (test code = 27765-0) Abnormal [facility] METABOLIC PANEL (NA, K, CL, CO2, GLUCOSE, BUN, CREATININE, CA)2022-12-02 06:20:42* Test Item Value Reference Range Interpretation Comme nts NA (test code = 0494495230) 124 mmol/L 135-145 L K (test code = 2132971720) 4.5 mmol/L 3.5-5.0 CL (test code = 0886940344) 78 mmol/L 98-108 L CO2 TOTAL (test code = 8851548655) 37 mmol/L 23-31 H AGAP (test code = 5862044611) 9 2-16 BUN (test code = 1800829420) 14 mg/dL 7-23 GLUCOSE (test code = 6682291758) 93 mg/dL 70-110 CREATININE (test code = 7744350002) 0.71 mg/dL 0.60-1.25 CALCIUM (test code = 5037616272) 9.1 mg/dL 8.6-10.6 eGFR (test code = 6799797098) 111.7 mL/min/1.73m2 OMAYRA (test code = OMAYRA) [...] imaging tests). Lab Interpretation (test code = 79031-2) [facility]normal [facility]neyNELA [id number] 12:22:32* Test Item Value Reference Range Interpretation Comme nts TROPONIN I (test code = 5904494510) 0.008 ng/mL <=0.034 OMAYRA (test code = [...] of biotin. Lab Interpretation (test code = 68224-2) Normal [facility] METABOLIC PANEL (NA, K, CL, CO2, GLUCOSE, BUN, CREATININE, CA)2022-12-01 12:11:11* Test Item Value Reference Range Interpretation Comme [facility] NA (test code = 2444435001) 124 mmol/L 135-145 L K (test code = 7701948282) 4.2 mmol/L 3.5-5.0 CL (test code = 9734103316) 79 mmol/L 98-108 L CO2 TOTAL (test code = 8663520346) 37 mmol/L 23-31 H AGAP (test code = 9318434270) 8 2-16 BUN (test code = 0932288539) 16 mg/dL 7-23 GLUCOSE (test code = 0764771693) 105 mg/dL 70-110 CREATININE (test code = 8202824841) 0.67 mg/dL 0.60-1.25 CALCIUM (test code = 4278083159) 8.6 mg/dL 8.6-10.6 eGFR (test code = 4919861381) 119.4 mL/min/1.73m2 OMAYRA (test code = OMAYRA) [...] imaging tests). Lab Interpretation (test code = 45844-6) Abnormal [facility] WITH [id number] 11:59:32* Test Item Value Reference Range Interpretation [...] 32.9 g/dL 31.2-35.0 RDW-SD (test code = 20827-6) 43.8 fL 38.5-51.6 RDW-CV (test code = 788-0) 13.2 % 12.1-15.4 PLT (test code = 777-3) 208 See_Comment [Automated message] The system which generated this result transmitted reference range: 150 - 328 10*3/?L. The reference range was not used to interpret this result as normal/abnormal. MPV (test code = 19855-3) 9.8 fL 9.8-13.0 NRBC/100 WBC (test code = 2445632051) 0.0 See_Comment [Automated message] The system which generated this result transmitted reference range: 0.0 - 10.0 /100 WBCs. The reference range was not used to interpret this result as normal/abnormal. NRBC x10^3 (test code = 5856515001) See_Comment [Automated message] The system which generated this result transmitted reference range: 10*3/?L. The reference range was not used to interpret this result as normal/abnormal. GRAN MAT (NEUT) % (test code = 770-8) 85.9 % IMM GRAN % (test code = 6226518409) 0.50 % LYMPH % (test code = 736-9) 6.8 % MONO % (test code = 5905-5) 6.3 % EOS % (test code = 713-8) 0.3 % BASO % (test code = 706-2) 0.2 % GRAN MAT x10^3(ANC) (test code = 4650669792) 10.44 10*3/uL 1.99-6.95 H IMM GRAN x10^3 (test code = 8908668241) 0.06 10*3/uL 0.00-0.06 LYMPH x10^3 (test code = 731-0) 0.83 10*3/uL 1.09-3.23 L MONO x10^3 (test code = 742-7) 0.77 10*3/uL 0.36-1.02 EOS x10^3 (test code = 711-2) 0.04 10*3/uL 0.06-0.53 L BASO x10^3 (test code = 704-7) 0.03 10*3/uL 0.01-0.09 Lab Interpretation (test code = 14308-7) [facility] (NA, K, CL, CO2, GLUCOSE, BUN, CREATININE, CA)2022-11-28 17:17:23* Test Item Value Reference Range Interpretation Comme nts NA (test code = 1631074579) 120 mmol/L 135-145 L K (test code = 1119856844) 4.3 mmol/L 3.5-5.0 CL (test code = 7813093043) 77 mmol/L 98-108 L CO2 TOTAL (test code = 2878292313) 40 mmol/L 23-31 H AGAP (test code = 8875740589) 3 2-16 BUN (test code = 1642145794) 15 mg/dL 7-23 GLUCOSE (test code = 2705335486) 151 mg/dL 70-110 H CREATININE (test code = 6334821392) 0.63 mg/dL 0.60-1.25 CALCIUM (test code = 2901165207) 8.2 mg/dL 8.6-10.6 L eGFR (test code = 5870716238) 128.2 mL/min/1.73m2 OMAYRA (test code = OMAYRA) [...] imaging tests). Lab Interpretation (test code = 58946-1) [facility]2023-03-12 06:54:10* Test Item Value Reference Range Interpretation Comme nts MAGNESIUM (test code = 0949498669) 1.6 mg/dL 1.7-2.4 L Lab Interpretation (test cod e = 29099-7) [facility]normal [facility] (NA, K, CL, CO2, GLUCOSE, BUN, CREATININE, CA)2022-11-28 01:29:53* Test Item Value Reference Range Interpretation Comme nts NA (test code = 9882190966) 120 mmol/L 135-145 L K (test code = 1078522162) 3.9 mmol/L 3.5-5.0 CL (test code = 2522024852) 77 mmol/L 98-108 L CO2 TOTAL (test code = 4043169802) 36 mmol/L 23-31 H AGAP (test code = 5448181934) 7 2-16 BUN (test code = 8059255678) 17 mg/dL 7-23 GLUCOSE (test code = 8351106635) 85 mg/dL 70-110 CREATININE (test code = 6957303397) 0.76 mg/dL 0.60-1.25 CALCIUM (test code = 3123873253) 8.3 mg/dL 8.6-10.6 L eGFR (test code = 7390986220) 103.3 mL/min/1.73m2 OMAYRA (test code = OMAYRA) [...] imaging tests). Lab Interpretation (test code = 72168-2) Abnormal [facility] METABOLIC PANEL (NA, K, CL, CO2, GLUCOSE, BUN, CREATININE, CA)2022-11-27 20:36:26* Test Item Value Reference Range Interpretation Comme nts NA (test code = 4073369580) 122 mmol/L 135-145 L K (test code = 7202550778) 3.9 mmol/L 3.5-5.0 CL (test code = 9322153480) 79 mmol/L 98-108 L CO2 TOTAL (test code = 7087360795) 37 mmol/L 23-31 H AGAP (test code = 8430336783) 6 2-16 BUN (test code = 1025416062) 17 mg/dL 7-23 GLUCOSE (test code = 2114168026) 113 mg/dL 70-110 H CREATININE (test code = 1976732802) 0.78 mg/dL 0.60-1.25 CALCIUM (test code = 8597884864) 7.8 mg/dL 8.6-10.6 L eGFR (test code = 9045331649) 100.2 mL/min/1.73m2 OMAYRA (test code = OMAYRA) [...] imaging tests). Lab Interpretation (test code = 72145-3) [facility]normal [facility]neyGLYCOSYLATED HEMOGLOBIN (A1C)2022-11-27 18:21:30* Test Item Value Reference Range Interpretation Comme nts HGB A1C (test code = 4548-4) 5.9 % 4.0-5.7 H OMAYRA (test code = OMAYRA) Reference RangesNormal: <5.7%Prediabetes: 5.7 - 6.4%Diabetes: > 6.5% Lab Interpretation (test code = 80436-4) Abnormal [facility]neyTROPONIN [id number] 06:12:58* Test Item Value Reference Range Interpretation Comme nts TROPONIN I (test code = 7925351938) 0.007 ng/mL <=0.034 OMAYRA (test code = [...] of biotin. Lab Interpretation (test code = 33961-3) Normal [facility]neyETH[facility]OL2023-03-11 06:10:43 ALCOHOL<10mg/dL11/27/2022 12:[address] 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 Lab Interpretation (test code = 38662-6) Abnormal [facility]neyCOMP[facility] METABOLIC PANEL (18750)2022-11-27 06:08:02* Test Item Value Reference Range Interpretation Comme nts NA (test code = 2222711754) 116 mmol/L 135-145 LL K (test code = 0359360150) 4.1 mmol/L 3.5-5.0 CL (test code = 6319726459) 75 mmol/L 98-108 L CO2 TOTAL (test code = 3476131774) 34 mmol/L 23-31 H AGAP (test code = 9192387331) 7 2-16 BUN (test code = 2059574002) 16 mg/dL 7-23 GLUCOSE (test code = 7154378357) 70 mg/dL 70-110 CREATININE (test code = 0642947890) 0.62 mg/dL 0.60-1.25 TOTAL BILI (test code = 7916264946) 1.2 mg/dL 0.1-1.1 H CALCIUM (test code = 4560941704) 8.1 mg/dL 8.6-10.6 L T PROTEIN (test code = 7970873902) 6.3 g/dL 6.3-8.2 ALBUMIN (test code = 1520772626) 3.8 g/dL 3.5-5.0 ALK PHOS (test code = 8701007125) 58 U/L 34-122 ALTv (test code = 1742-6) 15 U/L 5-50 AST(SGOT) (test code = 8123571141) 13 U/L 13-40 eGFR (test code = 2710086818) 130.6 mL/min/1.73m2 OMAYRA (test code = OMAYRA) [...] imaging tests). Lab Interpretation (test code = 17507-3) Abnormal [facility] WITH [id number] 05:45:18* Test Item Value Reference Range Interpretation Comme nts WBC (test code = 6690-2) 9.18 See_Comment [Automated [employer]] The system which generated this result transmitted [...] 34.8 g/dL 31.2-35.0 RDW-SD (test code = 88580-5) 40.1 fL 38.5-51.6 RDW-CV (test code = 788-0) 12.6 % 12.1-15.4 PLT (test code = 777-3) 216 See_Comment [Automated [employer]a ge] The system which generated this result transmitted reference range: 150 - 328 10*3/?L. The reference range was not used to interpret this result as normal/abnormal. MPV (test code = 38566-4) 9.4 fL 9.8-13.0 L NRBC/100 WBC (test code = 9141644095) 0.0 See_Comment [Automated naaptol ssage] The system which generated this result transmitted reference range: 0.0 - 10.0 /100 WBCs. The reference range was not used to interpret this result as normal/abnormal. NRBC x10^3 (test code = 3886088898) See_Comment [Automated messa ge] The system which generated this result transmitted reference range: 10*3/?L. The reference range was not used to interpret this result as normal/abnormal. GRAN MAT (NEUT) % (test code = 770-8) 79.1 % IMM GRAN % (test code = 0722484567) 0.90 % LYMPH % (test code = 736-9) 11.8 % MONO % (test code = 5905-5) 6.8 % EOS % (test code = 713-8) 1.2 % BASO % (test code = 706-2) 0.2 % GRAN MAT x10^3(ANC) (test code = 2659107984) 7.27 10*3/uL 1.99-6.95 H IMM GRAN x10^3 (test code = 2669610963) 0.08 10*3/uL 0.00-0.06 H LYMPH x10^3 (test code = 731-0) 1.08 10*3/uL 1.09-3.23 L MONO x10^3 (test code = 742-7) 0.62 10*3/uL 0.36-1.02 EOS x10^3 (test code = 711-2) 0.11 10*3/uL 0.06-0.53 BASO x10^3 (test code = 704-7) 0.01-0.09 Lab Interpretation (test code = 43428-3) [facility]normal [facility] MAE-JTQ9039-45-03 09:49:54* Test Item Value Reference Range Interpretation Comme nts NT-proBNP (test code = 3809648610) 294 pg/mL <=125 H OMAYRA (test code = OMAYRA) Biotin has been reported to cause a negative bias, interpret results relative to patient's use of biotin. Lab Interpretation (test code = 89810-5) Abnormal [facility]OLIC PANEL (44324)2022-11-19 09:41:52* Test Item Value Reference Range Interpretation Comme nts NA (test code = 9444669156) 120 mmol/L 135-145 L K (test code = 7392712399) 4.4 mmol/L 3.5-5.0 CL (test code = 7275167329) 80 mmol/L 98-108 L CO2 TOTAL (test code = 5446112827) 34 mmol/L 23-31 H AGAP (test code = 0270213008) 6 2-16 BUN (test code = 7111960680) 10 mg/dL 7-23 GLUCOSE (test code = 6182671329) 93 mg/dL 70-110 CREATININE (test code = 4177865254) 0.77 mg/dL 0.60-1.25 TOTAL BILI (test code = 6730068432) 1.1 mg/dL 0.1-1.1 CALCIUM (test code = 5011212390) 8.7 mg/dL 8.6-10.6 T PROTEIN (test code = 5100226354) 6.9 g/dL 6.3-8.2 ALBUMIN (test code = 4852513515) 4.1 g/dL 3.5-5.0 ALK PHOS (test code = 6403218522) 60 U/L 34-122 ALTv (test code = 1742-6) 14 U/L 5-50 AST(SGOT) (test code = 1109977237) 13 U/L 13-40 eGFR (test code = 4188353478) 101.7 mL/min/1.73m2 OMAYRA (test code = OMAYRA) [...] imaging tests). Lab Interpretation (test code = 67836-9) Abnormal [facility] WITH [id number] 09:02:29* Test Item Value Reference Range Interpretation [...] 33.7 g/dL 31.2-35.0 RDW-SD (test code = 74115-4) 42.3 fL 38.5-51.6 RDW-CV (test code = 788-0) 12.9 % 12.1-15.4 PLT (test code = 777-3) 252 See_Comment [Automated messa ge] The system which generated this result transmitted reference range: 150 - 328 10*3/?L. The reference range was not used to interpret this result as normal/abnormal. MPV (test code = 87116-5) 9.6 fL 9.8-13.0 L NRBC/100 WBC (test code = 7913896785) 0.0 See_Comment [Automated naaptol ssage] The system which generated this result transmitted reference range: 0.0 - 10.0 /100 WBCs. The reference range was not used to interpret this result as normal/abnormal. NRBC x10^3 (test code = 2840311381) See_Comment [Automated messa ge] The system which generated this result transmitted reference range: 10*3/?L. The reference range was not used to interpret this result as normal/abnormal. GRAN MAT (NEUT) % (test code = 770-8) 70.7 % IMM GRAN % (test code = 7720780090) 1.00 % LYMPH % (test code = 736-9) 16.0 % MONO % (test code = 5905-5) 10.5 % EOS % (test code = 713-8) 1.3 % BASO % (test code = 706-2) 0.5 % GRAN MAT x10^3(ANC) (test code = 1454962615) 5.87 10*3/uL 1.99-6.95 IMM GRAN x10^3 (test code = 1393940107) 0.08 10*3/uL 0.00-0.06 H LYMPH x10^3 (test code = 731-0) 1.33 10*3/uL 1.09-3.23 MONO x10^3 (test code = 742-7) 0.87 10*3/uL 0.36-1.02 EOS x10^3 (test code = 711-2) 0.11 10*3/uL 0.06-0.53 BASO x10^3 (test code = 704-7) 0.04 10*3/uL 0.01-0.09 Lab Interpretation (test code = 46272-4) Abnormal [facility] METABOLIC PANEL (NA, K, CL, CO2, GLUCOSE, BUN, CREATININE, CA)2022-11-10 23:42:55* Test Item Value Reference Range Interpretation Comme nts NA (test code = 9670830353) 121 mmol/L 135-145 L K (test code = 7524475323) 4.7 mmol/L 3.5-5.0 CL (test code = 4629034927) 82 mmol/L 98-108 L CO2 TOTAL (test code = 2504237568) 34 mmol/L 23-31 H AGAP (test code = 3580263139) 5 2-16 BUN (test code = 7472932723) 15 mg/dL 7-23 GLUCOSE (test code = 0521349800) 120 mg/dL 70-110 H CREATININE (test code = 4328869635) 0.75 mg/dL 0.60-1.25 CALCIUM (test code = 0580219117) 7.7 mg/dL 8.6-10.6 L eGFR (test code = 4559949212) 104.8 mL/min/1.73m2 OMAYRA (test code = OMAYRA) [...] imaging tests). Lab Interpretation (test code = 75208-6) Abnormal [facility] METABOLIC PANEL (NA, K, CL, CO2, GLUCOSE, BUN, CREATININE, CA)2022-11-10 17:59:59* Test Item Value Reference Range Interpretation Comme nts NA (test code = 7375071325) 121 mmol/L 135-145 L K (test code = 1176497803) 4.3 mmol/L 3.5-5.0 CL (test code = 6617100105) 81 mmol/L 98-108 L CO2 TOTAL (test code = 6246628488) 38 mmol/L 23-31 H AGAP (test code = 7681469234) 2 2-16 BUN (test code = 8662498250) 15 mg/dL 7-23 GLUCOSE (test code = 7568688264) 113 mg/dL 70-110 H CREATININE (test code = 1012310246) 0.74 mg/dL 0.60-1.25 CALCIUM (test code = 5921599086) 7.5 mg/dL 8.6-10.6 L eGFR (test code = 0588025696) 106.5 mL/min/1.73m2 OMAYRA (test code = OMAYRA) [...] imaging tests). Lab Interpretation (test code = 62375-9) [id number] 13:08:23* Test Item Value Reference Range Interpretation Comme nts NT-proBNP (test code = 2003285420) 177 pg/mL <=125 H OMAYRA (test code = OMAYRA) Biotin has been reported to cause a negative bias, interpret results relative to patient's use of biotin. Lab Interpretation (test code = 06866-6) [facility] [id number] 08:23:33* Test Item Value Reference Range Interpretation Comme nts TROPONIN I (test code = 8595671006) 0.004 ng/mL <=0.034 OMAYRA (test code = [...] of biotin. Lab Interpretation (test code = 21937-5) [facility] ([id number])2022-11-09 08:12:09* Test Item Value Reference Range Interpretation Comme nts NA (test code = 0774033658) 123 mmol/L 135-145 L K (test code = 9253314046) 4.2 mmol/L 3.5-5.0 CL (test code = 9175714280) 78 mmol/L 98-108 L CO2 TOTAL (test code = 0988233305) 34 mmol/L 23-31 H AGAP (test code = 1213924420) 11 2-16 BUN (test code = 1476670376) 8 mg/dL 7-23 GLUCOSE (test code = 5596983973) 113 mg/dL 70-110 H CREATININE (test code = 4188559749) 0.87 mg/dL 0.60-1.25 TOTAL BILI (test code = 8804994143) 1.2 mg/dL 0.1-1.1 H CALCIUM (test code = 6730205716) 8.8 mg/dL 8.6-10.6 T PROTEIN (test code = 4093453717) 7.6 g/dL 6.3-8.2 ALBUMIN (test code = 0410722753) 4.5 g/dL 3.5-5.0 ALK PHOS (test code = 9582003826) 72 U/L 34-122 ALTv (test code = 1742-6) 13 U/L 5-50 AST(SGOT) (test code = 1417107899) 13 U/L 13-40 eGFR (test code = 8624907729) 88.3 mL/min/1.73m2 OMAYRA (test code = OMAYRA) [...] imaging tests). Lab Interpretation (test code = 15088-9) [facility], [id number] 08:11:14* Test Item Value Reference Range Interpretation Comme nts LIPASE (test code = 0475735791) 108 U/L 0-220 Lab Interpretation (test cod e = 81001-4) [facility] WITH [id number] 07:59:28* Test Item Value Reference Range Interpretation Comme nts WBC (test code = 6690-2) 8.95 See_Comment [Automated [employer]] The system which generated this result transmitted reference range: 4.20 - 10.70 10*3/?L. The reference range was not used to interpret this result as normal/abnormal. RBC (test code = 789-8) 5.07 See_Comment [Automated [employer]] The system which generated this result transmitted [...] 32.8 g/dL 31.2-35.0 RDW-SD (test code = 58833-3) 41.1 fL 38.5-51.6 RDW-CV (test code = 788-0) 12.5 % 12.1-15.4 PLT (test code = 777-3) 235 See_Comment [Automated [employer]] The system which generated this result transmitted reference range: 150 - 328 10*3/?L. The reference range was not used to interpret this result as normal/abnormal. MPV (test code = 66705-1) 9.8 fL 9.8-13.0 NRBC/100 WBC (test code = 8678093589) 0.0 See_Comment [Automated naaptol ssage] The system which generated this result transmitted reference range: 0.0 - 10.0 /100 WBCs. The reference range was not used to interpret this result as normal/abnormal. NRBC x10^3 (test code = 4146842047) See_Comment [Automated naaptol ssage] The system which generated this result transmitted reference range: 10*3/?L. The reference range was not used to interpret this result as normal/abnormal. GRAN MAT (NEUT) % (test code = 770-8) 56.9 % IMM GRAN % (test code = 7574051270) 0.40 % LYMPH % (test code = 736-9) 29.4 % MONO % (test code = 5905-5) 9.5 % EOS % (test code = 713-8) 3.0 % BASO % (test code = 706-2) 0.8 % GRAN MAT x10^3(ANC) (test code = 2668770405) 5.09 10*3/uL 1.99-6.95 IMM GRAN x10^3 (test code = 5159802945) 0.04 10*3/uL 0.00-0.06 LYMPH x10^3 (test code = 731-0) 2.63 10*3/uL 1.09-3.23 MONO x10^3 (test code = 742-7) 0.85 10*3/uL 0.36-1.02 EOS x10^3 (test code = 711-2) 0.27 10*3/uL 0.06-0.53 BASO x10^3 (test code = 704-7) 0.07 10*3/uL 0.01-0.09 [facility] [id number] 19:05:00 * Test Item Value Reference Range [...] U APPEAR (test code = 3267) clear [facility] [id number] 19:05:00 * Test Item Value Reference Range [...] = 3267) clear [facility] URINALYSIS, [id number] 19:05:00 * Test Item Value Reference Range [...] U APPEAR (test code = 3267) clear [facility] ABDOMEN PELVIS W [id number] 17:53:531. ?No hydronephrosis or nephrolithiasis. 2. ?Mild [...] hernia with mild circumferential distalesophageal thickening (2:16). [place] density within the distal stomach andat the [...] hernia with mild circumferential distalesophageal thickening (2:16). [place] density within the distal stomach andat the [...] small right hydrocele.5. Additional findings as above. [facility] [id number] 17:37:38* Test Item Value Reference Range Interpretation Comme nts APPEARANCE (test code = 1247425642) Cloudy Clear A COLOR (test code = 8443167532) Red Yellow A PH (test code = 1307713116) 4.8-8.0 SP GRAVITY (test code = 1073367343) 1.003-1.030 GLU U QUAL (test code = 1676848431) 50 mg/dL Normal A BLOOD (test code = 7857542162) 3+ Negative A KETONES (test code = 9624654281) Negative Negative PROTEIN (test code = 2887-8) 100 mg/dL Negative A UROBILIN (test code = 9098159102) Normal Normal BILIRUBIN (test code = 2173522030) Negative Negative NITRITE (test code = 6104946649) Negative Negative LEUK DIANELYS (test code = 0293324309) Negative Negative RBC/HPF (test code = 4445557223) >182 See_Comment H [Automated messa ge] The system which generated this result transmitted reference range: 0 - 3 HPF. The reference range was not used to interpret this result as normal/abnormal. WBC/HPF (test code = 4399655358) >182 See_Comment H [Automated messa ge] The system which generated this result transmitted reference range: 0 - 5 HPF. The reference range was not used to interpret this result as normal/abnormal. BACTERIA (test code = 2250768631) Moderate Negative A WBC CLUMPS (test code = 2192031029) See_Comment H [Automated messa ge] The system which generated this result transmitted reference range: <=1 HPF. The reference range was not used to interpret this result as normal/abnormal. Lab Interpretation (test code = 78098-7) Abnormal [facility] [place], [place] Metabolic Panel (NA, K, CL, CO2, GLUCOSE, BUN, CREATININE, CA)2020-12-12 17:13:57* Test Item Value Reference Range Interpretation Comme nts NA (test code = 1337202878) 140 mmol/L 135-145 K (test code = 9125360380) 4.5 mmol/L 3.5-5.0 CL (test code = 1307106151) 100 mmol/L 98-108 CO2 TOTAL (test code = 9712213790) 35 mmol/L 23-31 H AGAP (test code = 9747262338) 2-16 BUN (test code = 5774181980) 25 mg/dL 7-23 H GLUCOSE (test code = 1631069157) 114 mg/dL 70-110 H CREATININE (test code = 0599394984) 1.18 mg/dL 0.60-1.25 CALCIUM (test code = 5149095152) 9.0 mg/dL 8.6-10.6 eGFR Calculation (Non-) (test code = 8161141379) mL/min/1.73m2 eGFR Calculation () (test code = 8628943005) mL/min/1.73m2 OMAYRA (test code = OMAYRA) Association [...] imaging tests). Lab Interpretation (test code = 00552-4) Abnormal [facility] with [id number] 16:56:10* Test Item Value Reference Range Interpretation Comme nts WBC (test code = 6690-2) See_Comment [Automated [employer]] The system which generated this result transmitted [...] 32.8 g/dL 31.2-35.0 RDW-SD (test code = 17445-0) 42.9 fL 38.5-51.6 RDW-CV (test code = 788-0) 11.9 % 12.1-15.4 L PLT (test code = 777-3) See_Comment [Automated [employer] ge] The system which generated this result transmitted reference range: 150 - 328 10*3/?L. The reference range was not used to interpret this result as normal/abnormal. MPV (test code = 30552-8) 10.8 fL 9.8-13.0 NRBC/100 WBC (test code = 3505369756) See_Comment [Automated naaptol ssage] The system which generated this result transmitted reference range: 0.0 - 10.0 /100 WBCs. The reference range was not used to interpret this result as normal/abnormal. NRBC x10^3 (test code = 8389617252) <0.01 See_Comment [Automated messa ge] The system which generated this result transmitted reference range: 10*3/?L. The reference range was not used to interpret this result as normal/abnormal. GRAN MAT (NEUT) % (test code = 770-8) 63.5 % IMM GRAN % (test code = 9101817587) 0.40 % LYMPH % (test code = 736-9) 23.9 % MONO % (test code = 5905-5) 6.7 % EOS % (test code = 713-8) 4.3 % BASO % (test code = 706-2) 1.2 % GRAN MAT x10^3(ANC) (test code = 4428909533) 4.27 10*3/uL 1.99-6.95 IMM GRAN x10^3 (test code = 2075438203) 0.03 10*3/uL 0.00-0.06 LYMPH x10^3 (test code = 731-0) 1.61 10*3/uL 1.09-3.23 MONO x10^3 (test code = 742-7) 0.45 10*3/uL 0.36-1.02 EOS x10^3 (test code = 711-2) 0.29 10*3/uL 0.06-0.53 BASO x10^3 (test code = 704-7) 0.08 10*3/uL 0.01-0.09 Lab Interpretation (test code = 77736-7) [facility]normal [facility] [id number] 18:56:00 * Test Item Value Reference Range [...] turbid Lab Interpretation (test cod e = 47857-3) Abnormal [facility] [id number] 18:56:00 * Test Item Value Reference Range [...] turbid Lab Interpretation (test cod e = 46203-8) Abnormal [facility]
--- NOTE | 2023-09-13 20:42 | ER ---
Nurse's Notes [facility] Name: Juan C Monge Age: 63 yrs Sex: Male : 1960 Arrival Date: 09/13/2023 Time: 19:30 Bed 7 Private MD: Diagnosis: COPD/ Chronic obstructive pulmonary disease with (acute) exacerbation Presentation: 09/13 19:35 Chief complaint:. vc1 19:36 Chief complaint: Patient states: I was just discharged from being admitted. I can't vc1 drive this late at night and I have no where to go. I wasn't doing. You need to get me back into a room because I am not going anywhere. Coronavirus screen: At this time, the client does not indicate any symptoms associated with coronavirus-19. Ebola Screen: Patient negative for fever greater than or equal to 101.5 degrees Fahrenheit, and additional compatible Ebola Virus Disease symptoms Patient denies exposure to infectious person. Patient denies travel to an Ebola-affected area in the 21 days before illness onset. No symptoms or risks identified at this time. Risk Assessment: Do you want to hurt yourself or someone else? Patient reports no desire to harm self or others. Onset of symptoms was September 13, 2023. 19:36 Method Of Arrival: Wheelchair vc1 19:36 Acuity: JESSI 3 vc1 19:43 Initial Sepsis Screen: Does the patient meet any 2 criteria? HR > 90 bpm. Yes Does the vc1 patient have a suspected source of infection? No. Patient's initial sepsis screen is negative. Triage Assessment: 20:50 General: Appears in no apparent distress. Behavior is agitated. kl Historical: - Allergies: 19:39 No Known Allergies; vc1 - PMHx: 19:39 COPD; CVA; Hyperlipidemia; Hypertension; Myocardial infarction; skull fracture; vc1 - PSHx: 19:39 Appendectomy; pacemaker; vc1 - Immunization history:: Pt states he don't know. - Social history:: Smoking status: Patient reports the use of cigarette tobacco products, 3 cigs per day. Screenin:[facility] ED Fall Risk Assessment (Adult) History of falling in the last 3 months, bp including since admission No falls in past 3 months (0 pts). Abuse screen: Denies threats or abuse. Denies injuries from another. Nutritional screening: No deficits noted. Tuberculosis screening: No symptoms or risk factors identified. Assessment: 20:48 Reassessment: Patient appears in no apparent distress at this time. Patient states kl symptoms have improved. respirations even non labored ambulatory no respiratory distress noted discharge instructions given . Vital Signs: 19:36 Weight 68.04 kg; Height 5 ft. 10 in. ; Pain 2/10; vc1 19:41 BP 118 / 62; Pulse 96; Resp 20; Temp 97.7; Pulse Ox 92% ; vc1 20:49 BP 120 / 67; Pulse 82; Resp 19; Pulse Ox 96% on R/A; kl 19:36 Body Mass Index 21.52 (68.04 kg, 177.8 cm) vc1 19:36 Pain Scale: Adult vc1 ED Course: 19:31 Patient arrived in ED. mr 19:32 Fatmata Maharaj FNP-C is [facility]. kb 19:32 Ramesh Hardy MD is Attending Physician. kb 19:39 Triage completed. vc1 19:40 Arm band placed on right wrist. vc1 20:42 Steven Jimenez, SERA is Primary Nurse. bp 20:45 Patient has correct armband on for positive identification. bp 20:45 No provider procedures requiring assistance completed. Patient did not have IV access bp during this emergency room visit. Administered Medications: 20:21 Drug: Albuterol Inhalation 2.5 mg Inhalation once Route: Inhalation; jw7 20:21 Drug: Ipratropium Inhalation Aerosol 0.5 mg Inhalation once Route: Inhalation; jw7 Outcome: 20:41 Discharge ordered by MD. kb 20:49 Discharged to home ambulatory, kl 20:49 Condition: stable 20:49 Discharge instructions given to patient, Instructed on discharge instructions, follow up and referral plans. Demonstrated understanding of instructions, refused to sign 20:50 Patient left the ED. kl Signatures: Fatmata Maharja FNP-C FNP-Katia Monte RN RN kl Rivera, Mary, Nando Collier mr Steven Jimenez, Mikayla Barreto RN, RN RN vc1 Waits, Jodi, RN RN jw7
--- NOTE | 2023-09-13 20:42 | EDPHYS ---
Physician Documentation [facility] Name: Juan C Monge Age: 63 yrs Sex: Male : 1960 Arrival Date: 09/13/2023 Time: 19:30 Bed 7 Private MD: ED Physician Ramesh Hardy HPI: 09/13 21:48 This 63 yrs old Male presents to ER via Wheelchair with complaints of Sick. 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 Pt came straight kb to the ER and checked back in. Pt states he was laying in his bed and the nurse came in to tell him he was discharged. States "they just kicked me out in the middle of the night. I can't drive after dark and my daughter is out of town so I don't have anywhere to go.". Historical: - Allergies: 19:39 No Known Allergies; vc1 - PMHx: 19:39 COPD; CVA; Hyperlipidemia; Hypertension; Myocardial infarction; skull fracture; vc1 - PSHx: 19:39 Appendectomy; pacemaker; vc1 - Immunization history:: Pt states he don't know. - Social history:: Smoking status: Patient reports the use of cigarette tobacco products, 3 cigs per day. ROS: 21:47 Constitutional: Negative for fever, chills, and weight loss, kb 21:47 Respiratory: Positive for shortness of breath, 21:47 All other systems are negative, Exam: 21:46 Constitutional: This is a well developed, well nourished patient who is awake, alert, kb and in no acute distress. Head/Face: Normocephalic, atraumatic. ENT: Moist Mucous membranes Cardiovascular: Regular rate Abdomen/GI: Soft, non-tender. No distention Skin: Warm, dry with normal turgor. Normal color. MS/ Extremity: Pulses equal, no cyanosis. Neurovascular intact. Full, normal range of motion. Neuro: Awake and alert, GCS 15, oriented to person, place, time, and situation. Moves all extremities. Normal gait. 21:46 Respiratory: mild respiratory distress is noted, Respirations: labored breathing, that is mild, Breath sounds: wheezing: expiratory that is mild, is scattered, Vital Signs: 19:36 Weight 68.04 kg; Height 5 ft. 10 in. ; Pain 2/10; vc1 19:41 BP 118 / 62; Pulse 96; Resp 20; Temp 97.7; Pulse Ox 92% ; vc1 20:49 BP 120 / 67; Pulse 82; Resp 19; Pulse Ox 96% on R/A; kl 19:36 Body Mass Index 21.52 (68.04 kg, 177.8 cm) vc1 19:36 Pain Scale: Adult vc1 MDM: 19:32 Patient medically screened. kb 21:46 Differential diagnosis: copd exacerbation, pneumonia, flu, covid. Data reviewed: vital kb signs, nurses notes. ED course: Pt left room prior to diagnostic results. Resp even and unlabored when he ambulated out of ED.. Administered Medications: 20:21 Drug: Albuterol Inhalation 2.5 mg Inhalation once Route: Inhalation; jw7 20:21 Drug: Ipratropium Inhalation Aerosol 0.5 mg Inhalation once Route: Inhalation; jw7 Disposition Summary: 09/13/23 20:41 Discharge Ordered Notes: Location: Home kb Condition: Stable kb Diagnosis - COPD/ Chronic obstructive pulmonary disease with (acute) exacerbation kb Followup: kb - With: Emergency Department - When: As needed - Reason: Worsening of condition Followup: kb - With: Private Physician - When: 2 - 3 days - Reason: Recheck today's complaints, Continuance of care, Re-evaluation by your physician Discharge Instructions: - Discharge Summary Sheet kb - Chronic Obstructive Pulmonary Disease Exacerbation kb Forms: - Medication Reconciliation Form kb - Thank You Letter kb - Antibiotic Education kb - Prescription Opioid Use kb - Patient Portal Instructions kb - Leadership Thank You Letter kb Addendum: 09/15/2023 09:19 I was immediately available for consultation during this patient's visit. I did not e c2 personally see the patient or guide the patient's care. . Signatures: Dispatcher [employer] EDMS Fatmata Maharaj FNP-C FNP-Mikayla Bynum RN RN vc1 Eloise Lara RN RN jw7 Ramesh Hardy MD MD ec2 Corrections: (The following items were deleted from the chart) 09/13 20:47 19:39 Chest Single View+[email or web address] ordered. EDMS EDMS
[2023-09-14 03:01] VITALS: BP 120/67; TEMP 97.7; O2SAT 96
== END ==
LOC: ER 19:30
DX: J44.1 Chronic obstructive pulmonary disease with (acute) exacerbation (principal); I10 Essential (primary) hypertension; I25.2 Old myocardial infarction; Z95.0 Presence of cardiac pacemaker; Z72.0 Tobacco use
CPT/HCPCS: 99284; J7613; J7644

== ENCOUNTER 2023-09-14 13:58 | Observation (INO) | payer OTHER ==
--- OUTSIDE RECORDS SUMMARY | 2023-09-14 14:14 | XMS REPORT | Continuity of Care Document ---
Author Name Unknown Address [address] [facility] [address] [place] [address] [facility] thconnect Address [address] [facility] [place] [address] Care Team Providers Care Cassandra Consultant Name Role Phone MILY GOODWIN Primary Care Physician Unavailable HERMINIA OH Attending Clinician Unavailable NOMI MARY Attending Clinician Unavailable NOMI MARY Attending Clinician Unavailable Nomi Mary DO Attending Clinician [phone] Doctor Unassigned, [place] Attending Clinician U elaina Monge RN, Marika Friedman Attending Clinician MARELY WATTERS Attending Clinician Unavaila MARELY Meehan Attending Clinician Unavaila CARL Bowman Attending Clinician Unavailable CARL ORLANDO Attending Clinician Unavailable MILY GOODWIN Attending Clinician April Mily Ruiz MD Attending Clinician Taylor Frye RN Attending Clinician Unavailab TRAVIS Katz Attending Clinician Unavailable Iza Portillo Attending Clinician [phone] Francisca Bryant DO Attending Clinician +[phone] Travis Zeng MD Attending Clinician +[phone] PRADIP AUSTIN Attending Clinician Unavaila Pradip Du Attending Clinician [phone] HERMINIA CHO Attending Clinician Unavailable Herminia Cho MD Attending Clinician + FRANCISCA BRYANT Attending Clinician Unavailab LOUIS Ham Attending Clinician Unavailable Louis Hong DO Attending Clinician + Bessie Oswald MD Attending Clinician +[phone] RACHAEL FLOWERS Attending Clinician Unavailable Rachael Flowers MD Attending Clinician [phone] LEOBARDO SLOAN Attending Clinician Unavailable Leobardo Sloan MD Attending Clinician +[phone] BESSIE OSWALD Attending Clinician Unavailable STEPHANIE ALMONTE Attending Clinician Unavail able Stephanie Almonte MD Attending Clinician [phone] IZA VARMA Attending Clinician Unavailable Kathia Paula MD Attending Clinician [phone] Agapito Hackett MD Attending Clinician [phone] María Diaz DO Attending Clinician [phone] MARISOL DEVLIN Attending Clinician Unavailable Marisol Devlin MD Attending Clinician [phone] Dedrick Toth MD Attending Clinician [phone] Cecy Caro LVN Attending Clinician +[phone] Carlo Valdez Attending Clinician + [phone] Abi Swan MD Attending Clinician [phone] Clive Contreras MD Attending Clinician +[phone] ERNESTO PIPER Attending Clinician Unavailable ERNESTO PIPER Attending Clinician Unavailable Krissy Powers MD Attending Clinician +[phone] LEILA CHAPA Attending Clinician Unavailable Leila Chaap MD Attending Clinician [phone] Jeanette Weaver Attending Clinician [phone] [facility] Attending Clinician UnavailGokul Lewis MD Attending Clinician +[phone] GOKUL TURNER Attending Clinician Unavailable , Adc Surg Spec Procedure Attending Clinician Unavailable JEANETTE MCDANIEL Attending Clinician Unavailable Chris ZAMORA, Herminia Chandler Attending Clinician UnavailRamesh Baires Attending Clinician [phone] TRAVIS ZENG Admitting Clinician Unavailable Travis Zeng MD Admitting Clinician [phone] STEPHANIE ALMONTE Admitting Clinician Unavail able LOUIS HONG Admitting Clinician Unavailable María Diaz DO Admitting Clinician [phone] MARISOL DEVLIN Admitting Clinician Unavailable IZA VARMA Admitting Clinician Unavailable Clive Contreras MD Admitting Clinician [phone] KRISSY POWERS Admitting Clinician Unavailable Krissy Powers MD Admitting Clinician [phone] MARÍA DIAZ Admitting Clinician Unavailable HERMINIA CHO Admitting Clinician Unavailable SAUD SANDERS Admitting Clinician Unavailable Payers Payer Name Policy Type Policy Number Effective Date Expirati on Date Source [employer] MEDICARE GOLD [id number] 2018 00:00:00 [employer] [id number] 2022 00:00:00 Problems Condition Name Condition Details Condition Category Status Onset Date Resolution Date Last Treatment Date Treating Clinician Comments Source Mitral regurgitat ion Mitral regurgitat ion Disease Active 02-16 00:00: 00 [facility] Hypotensio n, unspecifie d hypotensio n type Hypotensio n, unspecifie d hypotensio n type Disease Active 02-15 00:00: 00 [facility] 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 Disease Active 2023-0 5-03 00:00: 00 [facility] Confusion Confusion Disease Active 3-24 00:00: 00 [facility] Shortness of breath Shortness of breath Disease Active 3-11 00:00: 00 [facility] SOB (shortness of breath) SOB (shortness of breath) Disease Active 2-21 00:00: 00 [facility] 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 heart failure Disease Active 2018-09 00:00: 00 [facility] PAF (paroxysma l atrial fibrillati on) PAF (paroxysma l atrial fibrillati on) Disease Active 2018-09 00:00: 00 [facility] NSVT (nonsustai charlette ventricula r tachycardi a) NSVT (nonsustai charlette ventricula r tachycardi a) Disease Active 2018-09 00:00: 00 [facility] Acute on chronic combined systolic and diastolic congestive heart failure Acute on chronic combined systolic and diastolic congestive heart failure Disease Active 2018-09 00:00: 00 [facility] Nonrheumat ic mitral valve stenosis Nonrheumat ic mitral valve stenosis Disease Active 2018-09 00:00: 00 [facility] COPD exacerbati on COPD exacerbati on Disease Active 2018-09 00:00: 00 [facility] Cigarette smoker Cigarette smoker Disease Active 2018-09 00:00: 00 [facility] Troponin I above reference range Troponin I above reference range Disease Active 2018-09 00:00: 00 [facility] Hyponatrem ia Hyponatrem ia Disease Active 2018-09 00:00: 00 [facility] Hypoxia Hypoxia Disease Active 2018-09 00:00: 00 [facility] Acute respirator y distress Acute respirator y distress Disease Active 2018-09 00:00: 00 [facility] Left heart failure Left heart failure Disease Active 2013-09 00:00: 00 [facility] Closed fracture of zygoma Closed fracture of zygoma Disease Active 2013-09 00:00: 00 Overview: Formattin g of this note might be different from the original. Chronic Fracture - not acute [facility] Fall Fall Disease Active 2013-09 00:00: 00 [facility] Atrial fibrillati on Atrial fibrillati on Disease Active 2013-09 00:00: 00 [facility] VT (ventricul ar tachycardi a) VT (ventricul ar tachycardi a) Disease Active 2013-09 00:00: 00 [facility] Allergies, Adverse Reactions, Alerts Allergy Name Allergy Type Status Severity Reaction(s) Onset Date Inactive Date Treating Clinician Comments Source NO KNOWN ALLERGIE S Drug Class Active [facility] Social History Social Habit Start Date Stop Date Quantity Comments Source Gender identity [facility] History of tobacco use Passive smoker [facility] History SDOH Social Connections Get Together [facility] History SDOH Social Connections [facility] History SDOH Social Connections Membership [facility] History SDOH Social Connections Meetings [facility] History of Social function 2023-03-01 00:00:00 2023-03-01 00:00:00 [facility] Alcohol intake 2023-03-01 00:00:00 2023-03-01 00:00:00 Current drinker of alcohol (finding) [facility] History SDOH Housing Unable to Pay 2023-02-18 00:00:00 2023-02-18 00:00:00 2 [facility] History SDOH Housing Places Lived 2023-02-18 00:00:00 2023-02-18 00:00:00 1 [facility] History SDOH Housing Homeless Last Year 2023-02-18 00:00:00 2023-02-18 00:00:00 2 [facility] History SDOH Alcohol Frequency 2023-02-18 00:00:00 2023-02-18 00:00:00 1 [facility] History SDOH Social Connections Phone 2023-02-18 00:00:00 2023-02-18 00:00:00 5 [facility] History SDOH Social Connections Living 2023-02-18 00:00:00 2023-02-18 00:00:00 7 [facility] History SDOH Physical Activity DPW 2023-02-18 00:00:00 2023-02-18 00:00:00 0 [facility] History SDOH Physical Activity MPS 2023-02-18 00:00:00 2023-02-18 00:00:00 0 [facility] History SDOH Financial 2023-02-18 00:00:00 2023-02-18 00:00:00 5 [facility] History SDOH Food Worry 2023-02-18 00:00:00 2023-02-18 00:00:00 1 [facility] History SDOH Food Scarcity 2023-02-18 00:00:00 2023-02-18 00:00:00 1 [facility] History SDOH Transport Med 2023-02-18 00:00:00 2023-02-18 00:00:00 2 [facility] History SDOH Transport Non-Med 2023-02-18 00:00:00 2023-02-18 00:00:00 2 [facility] Exposure to SARS-CoV-2 (event) 2023-02-05 00:00:00 2023-02-15 15:15:00 Not sure [facility] History SDOH Alcohol Std Drinks 2022-12-02 00:00:00 2022-12-02 00:00:00 3 [facility] History SDOH Alcohol Binge 2022-12-02 00:00:00 2022-12-02 00:00:00 1 [facility] Cigarettes smoked current (pack per day) - Reported 2022-11-09 00:00:00 2022-11-09 00:00:00 [facility] Tobacco use and exposure 2022-11-09 00:00:00 2022-11-09 00:00:00 User of smokeless tobacco [facility] Education - What is the highest level of school you have completed or the highest degree you have received? 2022-11-09 00:00:00 2022-11-09 00:00:00 High school graduate [facility] Alcohol Comment 2014-08-27 00:00:00 2014-08-27 00:00:00 8 drinks per day [facility] Sex Assigned At 1960 00:00:00 1960 00:00:00 [facility] Smoking Status Start Date Stop Date Source Smokes tobacco daily 2022-11-09 00:00:00 [facility] Medications Ordered Medication Name Filled Medication Name Start Date Stop Date Current Medication? Ordering Clinician Indication Dosage Frequency Signature (SIG) Comments Components Source khadar sim (INCRUSE ELLIPTA) 62.5 mcg/actuati on DsDv 2022-09 0- 00:00: 00 Yes [id number] 1{puff} Inhale 1 Puff in the morning. [facility] tiotropium 18 mcg inhalation 2022-09 0 00:00: 00 Yes 18ug Inhale 1 capsule in the morning. [facility] tiotropium 18 mcg inhalation 2022-09 0 00:00: 00 Yes 18ug Inhale 1 capsule in the morning. [facility] tiotropium 18 mcg inhalation 2022-09 0 00:00: 00 Yes 18ug Inhale 1 capsule in the morning. [facility] fluticasone propion-bella meteroL (ADVAIR DISKUS) 250-50 mcg/dose inhalation disk 04-19 00:00: 00 Yes 1{puff} Inhale 1 Puff in the morning and 1 Puff in the evening. [facility] tiotropium 18 mcg inhalation 04-19 00:00: 00 Yes 18ug Inhale 1 capsule in the morning. [facility] albuterol 90 mcg/actuati on inhaler 04-19 00:00: 00 Yes 2{puff} Inhale 2 Puffs every 4 (four) hours as needed for Wheezing or Shortness of Breath. [facility] ipratropium -albuteroL 0.5 mg-3 mg(2.5 mg base)/3 mL nebulizer solution 04-19 00:00: 00 Yes [id number] 3mL Inhale 3 mL every 6 (six) hours as needed for Wheezing. [facility] fluticasone propion-bella meteroL (ADVAIR DISKUS) 250-50 mcg/dose inhalation disk 04-19 00:00: 00 Yes 1{puff} Inhale 1 Puff in the morning and 1 Puff in the evening. [facility] tiotropium 18 mcg inhalation 04-19 00:00: 00 Yes 18ug Inhale 1 capsule in the morning. [facility] albuterol 90 mcg/actuati on inhaler 04-19 00:00: 00 Yes 2{puff} Inhale 2 Puffs every 4 (four) hours as needed for Wheezing or Shortness of Breath. [facility] ipratropium -albuteroL 0.5 mg-3 mg(2.5 mg base)/3 mL nebulizer solution 04-19 00:00: 00 Yes [id number] 3mL Inhale 3 mL every 6 (six) hours as needed for Wheezing. [facility] fluticasone propion-bella meteroL (ADVAIR DISKUS) 250-50 mcg/dose inhalation disk 04-19 00:00: 00 Yes 1{puff} Inhale 1 Puff in the morning and 1 Puff in the evening. [facility] tiotropium 18 mcg inhalation 04-19 00:00: 00 Yes 18ug Inhale 1 capsule in the morning. [facility] albuterol 90 mcg/actuati on inhaler 04-19 00:00: 00 Yes 2{puff} Inhale 2 Puffs every 4 (four) hours as needed for Wheezing or Shortness of Breath. [facility] ipratropium -albuteroL 0.5 mg-3 mg(2.5 mg base)/3 mL nebulizer solution 04-19 00:00: 00 Yes [id number] 3mL Inhale 3 mL every 6 (six) hours as needed for Wheezing. [facility] fluticasone propion-bella meteroL (ADVAIR DISKUS) 250-50 mcg/dose inhalation disk 04-19 00:00: 00 Yes 1{puff} Inhale 1 Puff in the morning and 1 Puff in the evening. [facility] albuterol 90 mcg/actuati on inhaler 04-19 00:00: 00 Yes 2{puff} Inhale 2 Puffs every 4 (four) hours as needed for Wheezing or Shortness of Breath. [facility] ipratropium -albuteroL 0.5 mg-3 mg(2.5 mg base)/3 mL nebulizer solution 04-19 00:00: 00 Yes [id number] 3mL Inhale 3 mL every 6 (six) hours as needed for Wheezing. [facility] fluticasone propion-bella meteroL (ADVAIR DISKUS) 250-50 mcg/dose inhalation disk 04-19 00:00: 00 Yes 1{puff} Inhale 1 Puff in the morning and 1 Puff in the evening. [facility] albuterol 90 mcg/actuati on inhaler 04-19 00:00: 00 Yes 2{puff} Inhale 2 Puffs every 4 (four) hours as needed for Wheezing or Shortness of Breath. [facility] ipratropium -albuteroL 0.5 mg-3 mg(2.5 mg base)/3 mL nebulizer solution 04-19 00:00: 00 Yes [id number] 3mL Inhale 3 mL every 6 (six) hours as needed for Wheezing. [facility] fluticasone propion-bella meteroL (ADVAIR DISKUS) 250-50 mcg/dose inhalation disk 04-19 00:00: 00 Yes 1{puff} Inhale 1 Puff in the morning and 1 Puff in the evening. [facility] albuterol 90 mcg/actuati on inhaler 04-19 00:00: 00 Yes 2{puff} Inhale 2 Puffs every 4 (four) hours as needed for Wheezing or Shortness of Breath. [facility] ipratropium -albuteroL 0.5 mg-3 mg(2.5 mg base)/3 mL nebulizer solution 04-19 00:00: 00 Yes [id number] 3mL Inhale 3 mL every 6 (six) hours as needed for Wheezing. [facility] tiotropium 18 mcg inhalation 8 00:00: 00 07-08 00:00 :00 No 18ug Inhale 1 capsule in the morning. [facility] albuterol 2.5 mg /3 mL (0.083 %) nebulizer solution 03-03 00:00: 00 Yes [id number] 2.5mg Inhale 3 mL every 4 (four) hours. May also nebulize one extra every 6 hours. [facility] albuterol 2.5 mg /3 mL (0.083 %) nebulizer solution 03-03 00:00: 00 Yes [id number] 2.5mg Inhale 3 mL every 4 (four) hours. May also nebulize one extra every 6 hours. [facility] albuterol 2.5 mg /3 mL (0.083 %) nebulizer solution 03-03 00:00: 00 Yes [id number] 2.5mg Inhale 3 mL every 4 (four) hours. May also nebulize one extra every 6 hours. [facility] albuterol 2.5 mg /3 mL (0.083 %) nebulizer solution 03-03 00:00: 00 Yes [id number] 2.5mg Inhale 3 mL every 4 (four) hours. May also nebulize one extra every 6 hours. [facility] albuterol 2.5 mg /3 mL (0.083 %) nebulizer solution 03-03 00:00: 00 Yes [id number] 2.5mg Inhale 3 mL every 4 (four) hours. May also nebulize one extra every 6 hours. [facility] albuterol 2.5 mg /3 mL (0.083 %) nebulizer solution 03-03 00:00: 00 Yes [id number] 2.5mg Inhale 3 mL every 4 (four) hours. May also nebulize one extra every 6 hours. [facility] albuterol 2.5 mg /3 mL (0.083 %) nebulizer solution 2022-0 6-15 00:00: 00 Yes [id number] 2.5mg Inhale 3 mL every 4 (four) hours. May also nebulize one extra every 6 hours. [facility] donepeziL 5 mg tablet 2022-0 6-13 00:00: 00 Yes [id number] 5mg Take 1 tablet by mouth in the morning. [facility] memantine 5 mg tablet 2022-0 6-13 00:00: 00 Yes [id number] 5mg Take 1 tablet by mouth in the morning. [facility] donepeziL 5 mg tablet 2022-0 6-13 00:00: 00 Yes [id number] 5mg Take 1 tablet by mouth in the morning. [facility] memantine 5 mg tablet 2022-0 6-13 00:00: 00 Yes [id number] 5mg Take 1 tablet by mouth in the morning. [facility] donepeziL 5 mg tablet 2022-0 6-13 00:00: 00 Yes [id number] 5mg Take 1 tablet by mouth in the morning. [facility] memantine 5 mg tablet 2022-0 6-13 00:00: 00 Yes [id number] 5mg Take 1 tablet by mouth in the morning. [facility] donepeziL 5 mg tablet 2022-0 -13 00:00: 00 Yes [id number] 5mg Take 1 tablet by mouth in the morning. [facility] memantine 5 mg tablet 2022-0 6-13 00:00: 00 Yes [id number] 5mg Take 1 tablet by mouth in the morning. [facility] donepeziL 5 mg tablet 3-0 6-13 00:00: 00 Yes [id number] 5mg Take 1 tablet by mouth in the morning. [facility] memantine 5 mg tablet 3-0 6-13 00:00: 00 Yes [id number] 5mg Take 1 tablet by mouth in the morning. [facility] donepeziL 5 mg tablet 3-0 6-13 00:00: 00 Yes [id number] 5mg Take 1 tablet by mouth in the morning. [facility] memantine 5 mg tablet 2022-0 13 00:00: 00 Yes [id number] 5mg Take 1 tablet by mouth in the morning. [facility] donepeziL 5 mg tablet 2022-0 13 00:00: 00 Yes [id number] 5mg Take 1 tablet by mouth in the morning. [facility] memantine 5 mg tablet 2022-0 13 00:00: 00 Yes [id number] 5mg Take 1 tablet by mouth in the morning. [facility] donepeziL 5 mg tablet 2022-0 03-01 00:00: 00 Yes [id number] 5mg Take 1 tablet by mouth in the morning. [facility] memantine 5 mg tablet 2022-0 03-01 00:00: 00 Yes [id number] 5mg Take 1 tablet by mouth in the morning. [facility] donepeziL 5 mg tablet 2022-0 03-01 00:00: 00 Yes [id number] 5mg Take 1 tablet by mouth in the morning. [facility] memantine 5 mg tablet 2022-0 03-01 00:00: 00 Yes [id number] 5mg Take 1 tablet by mouth in the morning. [facility] busPIRone 10 mg tablet 0 02-18 16:15: 12 Yes 10mg Take 1 tablet by mouth in the morning and 1 tablet in the evening. [facility] rivaroxaban 15 mg tablet 0 02-18 16:15: 12 Yes 15mg Take 1 tablet by mouth in the morning. [facility] ASPIRIN ORAL 2022-0 02-18 16:15: 12 Yes 81mg Take 81 mg by mouth in the morning. tablet [facility] busPIRone 10 mg tablet 2022-0 02-18 16:15: 12 Yes 10mg Take 1 tablet by mouth in the morning and 1 tablet in the evening. [facility] rivaroxaban 15 mg tablet 2022-0 02-18 16:15: 12 Yes 15mg Take 1 tablet by mouth in the morning. [facility] ASPIRIN ORAL 3-0 02-18 16:15: 12 Yes 81mg Take 81 mg by mouth in the morning. tablet [facility] busPIRone 10 mg tablet 2022-0 02-18 16:15: 12 Yes 10mg Take 1 tablet by mouth in the morning and 1 tablet in the evening. [facility] rivaroxaban 15 mg tablet 0 02-18 16:15: 12 Yes 15mg Take 1 tablet by mouth in the morning. [facility] ASPIRIN ORAL 2022-0 02-18 16:15: 12 Yes 81mg Take 81 mg by mouth in the morning. tablet [facility] busPIRone 10 mg tablet 2022-0 02-18 16:15: 12 Yes 10mg Take 1 tablet by mouth in the morning and 1 tablet in the evening. [facility] rivaroxaban 15 mg tablet 0 02-18 16:15: 12 Yes 15mg Take 1 tablet by mouth in the morning. [facility] ASPIRIN ORAL 2022-0 02-18 16:15: 12 Yes 81mg Take 81 mg by mouth in the morning. tablet [facility] busPIRone 10 mg tablet 0 02-18 16:15: 12 Yes 10mg Take 1 tablet by mouth in the morning and 1 tablet in the evening. [facility] rivaroxaban 15 mg tablet 0 02-18 16:15: 12 Yes 15mg Take 1 tablet by mouth in the morning. [facility] ASPIRIN ORAL 2022-0 02-18 16:15: 12 Yes 81mg Take 81 mg by mouth in the morning. tablet [facility] busPIRone 10 mg tablet 0 02-18 16:15: 12 Yes 10mg Take 1 tablet by mouth in the morning and 1 tablet in the evening. [facility] riv[facility] mg tablet 2022-0 02-18 16:15: 12 Yes 15mg Take 1 tablet by mouth in the morning. [facility] ASPIRIN ORAL 2022-0 02-18 16:15: 12 Yes 81mg Take 81 mg by mouth in the morning. tablet [facility] busPIRone 10 mg tablet 2022-0 02-18 16:15: 12 Yes 10mg Take 1 tablet by mouth in the morning and 1 tablet in the evening. [facility] rivaroxaban 15 mg tablet 2022-0 02-18 16:15: 12 Yes 15mg Take 1 tablet by mouth in the morning. [facility] ASPIRIN ORAL 3-0 02-18 16:15: 12 Yes 81mg Take 81 mg by mouth in the morning. tablet [facility] busPIRone 10 mg tablet 2022-0 02-18 16:15: 12 Yes 10mg Take 1 tablet by mouth in the morning and 1 tablet in the evening. [facility] rivaroxaban 15 mg tablet 2022-0 02-18 16:15: 12 Yes 15mg Take 1 tablet by mouth in the morning. [facility] ASPIRIN ORAL 2022-0 02-18 16:15: 12 Yes 81mg Take 81 mg by mouth in the morning. tablet [facility] busPIRone 10 mg tablet 2022-0 02-18 16:15: 12 Yes 10mg Take 1 tablet by mouth in the morning and 1 tablet in the evening. [facility] rivaroxaban 15 mg tablet 0 02-18 16:15: 12 Yes 15mg Take 1 tablet by mouth in the morning. [facility] ASPIRIN ORAL 2022-0 02-18 16:15: 12 Yes 81mg Take 81 mg by mouth in the morning. tablet [facility] busPIRone 10 mg tablet 2022-0 02-18 16:15: 12 Yes 10mg Take 1 tablet by mouth in the morning and 1 tablet in the evening. [facility] rivaroxaban 15 mg tablet 2022-0 02-18 16:15: 12 Yes 15mg Take 1 tablet by mouth in the morning. [facility] ASPIRIN ORAL 3-0 02-18 16:15: 12 Yes 81mg Take 81 mg by mouth in the morning. tablet [facility] busPIRone 10 mg tablet 2022-0 02-18 16:15: 12 Yes 10mg Take 1 tablet by mouth in the morning and 1 tablet in the evening. [facility] riv[facility] mg tablet 2022-0 02-18 16:15: 12 Yes 15mg Take 1 tablet by mouth in the morning. [facility] ASPIRIN ORAL 0 02-18 16:15: 12 Yes 81mg Take 81 mg by mouth in the morning. tablet [facility] busPIRone 10 mg tablet 02-18 16:15: 12 Yes 10mg Take 1 tablet by mouth in the morning and 1 tablet in the evening. [facility] rivaroxaban 15 mg tablet 0 02-18 16:15: 12 Yes 15mg Take 1 tablet by mouth in the morning. [facility] ASPIRIN ORAL 0 02-18 16:15: 12 Yes 81mg Take 81 mg by mouth in the morning. tablet [facility] busPIRone 10 mg tablet 0 02-18 16:15: 12 Yes 10mg Take 1 tablet by mouth in the morning and 1 tablet in the evening. [facility] rivaroxaban 15 mg tablet 02-18 16:15: 12 Yes 15mg Take 1 tablet by mouth in the morning. [facility] ASPIRIN ORAL 02-18 16:15: 12 Yes 81mg Take 81 mg by mouth in the morning. tablet [facility] predniSONE 20 mg tablet 0 02-18 00:00: 00 02-22 04:59 :00 No [id number] 40mg Take 2 tablets by mouth in the morning for 3 days. [facility] predniSONE 20 mg tablet 0 02-18 00:00: 00 02-22 04:59 :00 No [id number] 40mg Take 2 tablets by mouth in the morning for 3 days. [facility] predniSONE 20 mg tablet 02-18 00:00: 00 02-22 04:59 :00 No [id number] 40mg Take 2 tablets by mouth in the morning for 3 days. [facility] midodrine 5 mg tablet 02-17 00:00: 00 Yes [id number] 5mg Take 1 tablet by mouth every 8 (eight) hours as needed (Hypotensi on SBP <95 or DBP <50). [facility] midodrine 5 mg tablet 02-17 00:00: 00 Yes [id number] 5mg Take 1 tablet by mouth every 8 (eight) hours as needed (Hypotensi on SBP <95 or DBP <50). [facility] midodrine 5 mg tablet 02-17 00:00: 00 Yes [id number] 5mg Take 1 tablet by mouth every 8 (eight) hours as needed (Hypotensi on SBP <95 or DBP <50). [facility] midodrine 5 mg tablet 02-17 00:00: 00 Yes [id number] 5mg Take 1 tablet by mouth every 8 (eight) hours as needed (Hypotensi on SBP <95 or DBP <50). [facility] midodrine 5 mg tablet 02-17 00:00: 00 Yes [id number] 5mg Take 1 tablet by mouth every 8 (eight) hours as needed (Hypotensi on SBP <95 or DBP <50). [facility] midodrine 5 mg tablet 02-17 00:00: 00 Yes [id number] 5mg Take 1 tablet by mouth every 8 (eight) hours as needed (Hypotensi on SBP <95 or DBP <50). [facility] midodrine 5 mg tablet 02-17 00:00: 00 Yes [id number] 5mg Take 1 tablet by mouth every 8 (eight) hours as needed (Hypotensi on SBP <95 or DBP <50). [facility] midodrine 5 mg tablet 02-17 00:00: 00 Yes [id number] 5mg Take 1 tablet by mouth every 8 (eight) hours as needed (Hypotensi on SBP <95 or DBP <50). [facility] midodrine 5 mg tablet 02-17 00:00: 00 Yes [id number] 5mg Take 1 tablet by mouth every 8 (eight) hours as needed (Hypotensi on SBP <95 or DBP <50). [facility] midodrine 5 mg tablet 02-17 00:00: 00 Yes [id number] 5mg Take 1 tablet by mouth every 8 (eight) hours as needed (Hypotensi on SBP <95 or DBP <50). [facility] midodrine 5 mg tablet 0 02-17 00:00: 00 Yes [id number] 5mg Take 1 tablet by mouth every 8 (eight) hours as needed (Hypotensi on SBP <95 or DBP <50). [facility] midodrine 5 mg tablet 0 02-17 00:00: 00 Yes [id number] 5mg Take 1 tablet by mouth every 8 (eight) hours as needed (Hypotensi on SBP <95 or DBP <50). [facility] midodrine 5 mg tablet 02-17 00:00: 00 Yes [id number] 5mg Take 1 tablet by mouth every 8 (eight) hours as needed (Hypotensi on SBP <95 or DBP <50). [facility] midodrine (PROAMATINE ) tablet 5 mg 02-16 19:00: 00 Yes 5mg 5 mg, Oral, Q8H, First dose on Tue02/16/23 at 1400, Until Discontinu ed, Routine [facility] rivaroxaban (XARELTO) tablet 15 mg 02-16 14:00: 00 Yes 15mg 15 mg, Oral, DAILY, First dose on Tue02/16/23 at 0900, Until Discontinu ed, Routine [facility] montelukast (SINGULAIR) tablet 10 mg 02-16 14:00: 00 Yes 10mg 10 mg, Oral, DAILY, First dose on Tue02/16/23 at 0900, Until Discontinu ed, Routine [facility] memantine (NAMENDA) tablet 5 mg 02-16 14:00: 00 Yes 5mg 5 mg, Oral, DAILY, First dose on Tue02/16/23 at 0900, Until Discontinu ed, Routine
produce team member approving Restricted medication : DEDRICK TOTH [facility] donepeziL (ARICEPT) tablet 5 mg 02-16 14:00: 00 Yes 5mg 5 mg, Oral, DAILY, First dose on Tue02/16/23 at 0900, Until Discontinu ed, Routine [facility] aspirin EC tablet 81 mg 02-16 14:00: 00 Yes 81mg 81 mg, Oral, DAILY, First dose on Tue02/16/23 at 0900, Until Discontinu ed [facility] docusate (COLACE) capsule 100 mg 02-16 14:00: 00 Yes 100mg 100 mg, Oral, DAILY, First dose on Tue02/16/23 at 0900, Until Discontinu ed, Routine [facility] predniSONE (DELTASONE) tablet 40 mg 02-16 14:00: 00 02-21 13:59 :00 No 40mg 40 mg, Oral, DAILY, 5 doses, First dose on Tue02/16/23 at 0900, Last dose on Tue02/20/23 at 0900, Routine [facility] sulfur hexafluorid e microsphr (LUMASON) injection 5 mL 02-16 14:00: 00 02-16 14:00 :00 No [id number] 5mL 5 mL, Intravenou s, ONCE, 1 dose, On Tue02/16/23 at 0900, Routine
produce team member approving Restricted medication : STEFFANIE REYES [facility] budesonide- formoteroL (SYMBICORT) 160-4.5 mcg/actuati on inhaler 2 Puff 02-16 13:00: 00 Yes 2{puff} 2 Puff, Inhalation , BID, First dose on Tue02/16/23 at 0800, Until Discontinu ed [facility] busPIRone (BUSPAR) tablet 10 mg 02-16 13:00: 00 Yes 10mg 10 mg, Oral, BID, First dose on Tue02/16/23 at 0800, Until Discontinu ed, Routine [facility] methylpredn isolone sod succ (SOLU-MEDRO L) injection 60 mg 02-16 05:43: 00 02-16 05:51 :00 No 60mg 60 mg, Intravenou s, ONCE, 1 dose, On Tue02/16/23 at 0045, 2 mL [facility] levoFLOXaci n in D5W (LEVAQUIN) 500 mg/100 [...]
Re stricted use approved by: ADC PROVIDER [facility] doxycycline hyclate (Vibramycin ) capsule 100 mg 02-16 01:02: 11 02-16 21:57 :07 No 100mg 100 mg, Oral, Q12H ABX, 10 doses, First dose on Tue02/15/23 at 2015, Last dose on Tue02/20/23 at 0815, MICHAEL
Re ason for Anti-Infec tive: Documented Infection< br>Documen anirudh Infection Site: Respirator y
Durat ion of Therapy: 7 days [facility] NaCl 0.9% (NS) IV infusion 1,000 mL 02-16 01:00: 00 02-16 12:47 :05 No 1000mL at 100 mL/hr, IV Infusion, CONTINUOUS , Starting on Tue02/15/23 at 2000, Until Tue02/16/23 at 0747, Routine [facility] ipratropium -albuteroL (DUONEB) 0.5 mg-3 mg(2.5 mg base)/3 mL nebulizer solution 3 mL 02-16 00:53: 35 Yes 3mL 3 mL, Inhalation , Q6HPRN, Starting on Tue02/15/23 at 1953, Until Discontinu ed, Routine, Wheezing, Shortness of Breath [facility] HYDROcodone -acetaminop hen (NORCO) 10-325 mg tablet 1 tablet 02-16 00:52: 26 Yes 1{tbl} 1 tablet, Oral, Q6HPRN, Starting on Tue02/15/23 at 1951, Until Discontinu ed, Routine, Pain (scale 7-10) [facility] traMADoL (ULTRAM) tablet 50 mg 02-16 00:52: 22 02-18 00:51 :22 No 50mg 50 mg, Oral, Q8HPRN, Starting on Tue02/15/23 at 1951, Until Elizabeth 02/17/23 at 1950, Routine, Pain (scale 4-6) [facility] acetaminoph en (TYLENOL) tablet 650 mg 02-16 00:52: 16 Yes 650mg 650 mg, Oral, Q6HPRN, Starting on Tue02/15/23 at 1951, Until Discontinu ed, Routine, Pain (scale 1-3) [facility] NaCl 0.9% (NS) bolus infusion 1,000 mL 02-15 22:15: 00 02-15 22:51 :00 No 1000mL at 999 mL/hr, 1,000 mL, IV Infusion, ONCE, 1 dose, On Tue02/15/23 at 1715, [facility] NaCl 0.9% (NS) bolus infusion 1,000 mL 02-15 21:30: 00 02-15 22:43 :00 No 1000mL at 999 mL/hr, 1,000 mL, IV Infusion, ONCE, 1 dose, On Tue02/15/23 at 1630, [facility] NaCl 0.9% (NS) bolus infusion 1,000 mL 02-15 20:45: 00 02-15 22:43 :00 No 1000mL at 999 mL/hr, 1,000 mL, IV Infusion, ONCE, 1 dose, On Tue02/15/23 at 1545, [facility] ipratropium -albuteroL (DUONEB) 0.5 mg-3 mg(2.5 mg base)/3 mL nebulizer solution 3 mL 02-05 22:15: 00 02-06 10:14 :00 No 3mL 3 mL, Inhalation , ONCE, 1 dose, On 02/05/23 at 1715, [facility] ipratropium -albuteroL (DUONEB) 0.5 mg-3 mg(2.5 mg base)/3 mL nebulizer solution 3 mL 02-05 21:15: 00 02-05 20:17 :00 No 3mL 3 mL, Inhalation , ONCE, 1 dose, On 02/05/23 at 1615, [facility] predniSONE (DELTASONE) tablet 40 mg 02-05 20:15: 00 02-05 20:18 :00 No 40mg 40 mg, Oral, ONCE, 1 dose, On 02/05/23 at 1515, [facility] levalbutero l (XOPENEX) nebulizer solution 2.5 mg 02-04 21:15: 00 02-04 20:31 :00 No 2.5mg 2.5 mg, Inhalation , ONCE, 1 dose, On Tue02/04/23 at 1615, Routine [facility] ipratropium (ATROVENT) 0.02 % nebulizer solution 0.5 mg 02-04 21:15: 00 02-04 20:31 :00 No .5mg 0.5 mg, Inhalation , ONCE, 1 dose, On Tue02/04/23 at 1615, [facility] albuterol 90 mcg/actuati on inhaler 02-04 00:00: 00 Yes [id number] 2{puff} Inhale 2 Puffs every 4 (four) hours as needed for Wheezing or Shortness of Breath. [facility] albuterol 90 mcg/actuati on inhaler 02-04 00:00: 00 Yes [id number] 2{puff} Inhale 2 Puffs every 4 (four) hours as needed for Wheezing or Shortness of Breath. [facility] albuterol 90 mcg/actuati on inhaler 02-04 00:00: 00 Yes [id number] 2{puff} Inhale 2 Puffs every 4 (four) hours as needed for Wheezing or Shortness of Breath. [facility] albuterol 90 mcg/actuati on inhaler 02-04 00:00: 00 Yes [id number] 2{puff} Inhale 2 Puffs every 4 (four) hours as needed for Wheezing or Shortness of Breath. [facility] albuterol 90 mcg/actuati on inhaler 02-04 00:00: 00 Yes [id number] 2{puff} Inhale 2 Puffs every 4 (four) hours as needed for Wheezing or Shortness of Breath. [facility] albuterol 90 mcg/actuati on inhaler 02-04 00:00: 00 Yes [id number] 2{puff} Inhale 2 Puffs every 4 (four) hours as needed for Wheezing or Shortness of Breath. [facility] albuterol 90 mcg/actuati on inhaler 02-04 00:00: 00 Yes [id number] 2{puff} Inhale 2 Puffs every 4 (four) hours as needed for Wheezing or Shortness of Breath. [facility] albuterol 90 mcg/actuati on inhaler 02-04 00:00: 00 Yes [id number] 2{puff} Inhale 2 Puffs every 4 (four) hours as needed for Wheezing or Shortness of Breath. [facility] albuterol 90 mcg/actuati on inhaler 02-04 00:00: 00 Yes [id number] 2{puff} Inhale 2 Puffs every 4 (four) hours as needed for Wheezing or Shortness of Breath. [facility] albuterol 90 mcg/actuati on inhaler 02-04 00:00: 00 Yes [id number] 2{puff} Inhale 2 Puffs every 4 (four) hours as needed for Wheezing or Shortness of Breath. [facility] albuterol 90 mcg/actuati on inhaler 02-04 00:00: 00 04-19 00:00 :00 No [id number] 2{puff} Inhale 2 Puffs every 4 (four) hours as needed for Wheezing or Shortness of Breath. [facility] albuterol 90 mcg/actuati on inhaler 02-04 00:00: 00 04-19 00:00 :00 No [id number] 2{puff} Inhale 2 Puffs every 4 (four) hours as needed for Wheezing or Shortness of Breath. [facility] ipratropium -albuteroL (DUONEB) 0.5 mg-3 mg(2.5 mg base)/3 mL nebulizer solution 3 mL 02-03 21:00: 00 Yes 3mL 3 mL, Inhalation , QID, First dose on Tue02/03/23 at 1600, Until Discontinu ed, Routine [facility] methylpredn isolone sod succ (SOLU-MEDRO L) injection 125 mg 02-03 18:45: 00 02-03 18:16 :00 No 125mg 125 mg, Intravenou s, ONCE, 1 dose, On Tue02/03/23 at 1345, 2 mL [facility] ipratropium -albuteroL (DUONEB) 0.5 mg-3 mg(2.5 mg base)/3 mL nebulizer solution 3 mL 02-02 23:15: 00 02-02 22:13 :00 No 3mL 3 mL, Inhalation , ONCE, 1 dose, On Tue02/02/23 at 1815, Routine [facility] albuterol 90 mcg/actuati on inhaler 01-31 00:00: 00 Yes [id number] 2{puff} Inhale 2 Puffs every 4 (four) hours as needed for Wheezing, Shortness of Breath or Bronchospa sm. [facility] fluticasone propion-bella meteroL (ADVAIR DISKUS) 250-50 mcg/dose inhalation disk 01-31 00:00: 00 Yes [id number] 1{puff} Inhale 1 Puff in the morning and 1 Puff in the evening. [facility] montelukast 10 mg tablet 01-31 00:00: 00 Yes [id number] 10mg Take 1 tablet by mouth in the morning. [facility] tiotropium 18 mcg inhalation 01-31 00:00: 00 Yes [id number] 18ug Inhale 1 capsule in the morning. [facility] albuterol 90 mcg/actuati on inhaler 01-31 00:00: 00 Yes [id number] 2{puff} Inhale 2 Puffs every 4 (four) hours as needed for Wheezing, Shortness of Breath or Bronchospa sm. [facility] fluticasone propion-bella meteroL (ADVAIR DISKUS) 250-50 mcg/dose inhalation disk 01-31 00:00: 00 Yes [id number] 1{puff} Inhale 1 Puff in the morning and 1 Puff in the evening. [facility] montelukast 10 mg tablet 01-31 00:00: 00 Yes [id number] 10mg Take 1 tablet by mouth in the morning. [facility] tiotropium 18 mcg inhalation 01-31 00:00: 00 Yes [id number] 18ug Inhale 1 capsule in the morning. [facility] albuterol 90 mcg/actuati on inhaler 01-31 00:00: 00 Yes [id number] 2{puff} Inhale 2 Puffs every 4 (four) hours as needed for Wheezing, Shortness of Breath or Bronchospa sm. [facility] fluticasone propion-bella meteroL (ADVAIR DISKUS) 250-50 mcg/dose inhalation disk 01-31 00:00: 00 Yes [id number] 1{puff} Inhale 1 Puff in the morning and 1 Puff in the evening. [facility] montelukast 10 mg tablet 01-31 00:00: 00 Yes [id number] 10mg Take 1 tablet by mouth in the morning. [facility] tiotropium 18 mcg inhalation 0 15 00:00: 00 Yes [id number] 18ug Inhale 1 capsule in the morning. [facility] albuterol 90 mcg/actuati on inhaler 2022-0 15 00:00: 00 Yes [id number] 2{puff} Inhale 2 Puffs every 4 (four) hours as needed for Wheezing, Shortness of Breath or Bronchospa sm. [facility] fluticasone propion-bella meteroL (ADVAIR DISKUS) 250-50 mcg/dose inhalation disk 2022-0 15 00:00: 00 Yes [id number] 1{puff} Inhale 1 Puff in the morning and 1 Puff in the evening. [facility] montelukast 10 mg tablet 2022-0 15 00:00: 00 Yes [id number] 10mg Take 1 tablet by mouth in the morning. [facility] tiotropium 18 mcg inhalation 2022-0 -15 00:00: 00 Yes [id number] 18ug Inhale 1 capsule in the morning. [facility] fluticasone propion-bella meteroL (ADVAIR DISKUS) 250-50 mcg/dose inhalation disk 2022-0 15 00:00: 00 Yes [id number] 1{puff} Inhale 1 Puff in the morning and 1 Puff in the evening. [facility] montelukast 10 mg tablet 2022-0 15 00:00: 00 Yes [id number] 10mg Take 1 tablet by mouth in the morning. [facility] tiotropium 18 mcg inhalation 2022-0 15 00:00: 00 Yes [id number] 18ug Inhale 1 capsule in the morning. [facility] fluticasone propion-bella meteroL (ADVAIR DISKUS) 250-50 mcg/dose inhalation disk 2022-0 15 00:00: 00 Yes [id number] 1{puff} Inhale 1 Puff in the morning and 1 Puff in the evening. [facility] montelukast 10 mg tablet 2022-0 15 00:00: 00 Yes [id number] 10mg Take 1 tablet by mouth in the morning. [facility] tiotropium 18 mcg inhalation 2022-0 -15 00:00: 00 Yes [id number] 18ug Inhale 1 capsule in the morning. [facility] fluticasone propion-bella meteroL (ADVAIR DISKUS) 250-50 mcg/dose inhalation disk 3-0 5-15 00:00: 00 Yes [id number] 1{puff} Inhale 1 Puff in the morning and 1 Puff in the evening. [facility] montelukast 10 mg tablet 3-0 5-15 00:00: 00 Yes [id number] 10mg Take 1 tablet by mouth in the morning. [facility] tiotropium 18 mcg inhalation 3-0 5-15 00:00: 00 Yes [id number] 18ug Inhale 1 capsule in the morning. [facility] fluticasone propion-bella meteroL (ADVAIR DISKUS) 250-50 mcg/dose inhalation disk 3-0 5-15 00:00: 00 Yes [id number] 1{puff} Inhale 1 Puff in the morning and 1 Puff in the evening. [facility] montelukast 10 mg tablet 2022-0 -15 00:00: 00 Yes [id number] 10mg Take 1 tablet by mouth in the morning. [facility] tiotropium 18 mcg inhalation 3-0 5-15 00:00: 00 Yes [id number] 18ug Inhale 1 capsule in the morning. [facility] fluticasone propion-bella meteroL (ADVAIR DISKUS) 250-50 mcg/dose inhalation disk 3-0 5-15 00:00: 00 Yes [id number] 1{puff} Inhale 1 Puff in the morning and 1 Puff in the evening. [facility] montelukast 10 mg tablet 3-0 5-15 00:00: 00 Yes [id number] 10mg Take 1 tablet by mouth in the morning. [facility] tiotropium 18 mcg inhalation 3-0 5-15 00:00: 00 Yes [id number] 18ug Inhale 1 capsule in the morning. [facility] fluticasone propion-bella meteroL (ADVAIR DISKUS) 250-50 mcg/dose inhalation disk 3-0 5-15 00:00: 00 Yes [id number] 1{puff} Inhale 1 Puff in the morning and 1 Puff in the evening. [facility] montelukast 10 mg tablet 2022-0 -15 00:00: 00 Yes [id number] 10mg Take 1 tablet by mouth in the morning. [facility] tiotropium 18 mcg inhalation 3-0 5-15 00:00: 00 Yes [id number] 18ug Inhale 1 capsule in the morning. [facility] fluticasone propion-bella meteroL (ADVAIR DISKUS) 250-50 mcg/dose inhalation disk 3-0 5-15 00:00: 00 Yes [id number] 1{puff} Inhale 1 Puff in the morning and 1 Puff in the evening. [facility] montelukast 10 mg tablet 2022-0 -15 00:00: 00 Yes [id number] 10mg Take 1 tablet by mouth in the morning. [facility] tiotropium 18 mcg inhalation 2022-0 -15 00:00: 00 Yes [id number] 18ug Inhale 1 capsule in the morning. [facility] fluticasone propion-bella meteroL (ADVAIR DISKUS) 250-50 mcg/dose inhalation disk 2022-0 15 00:00: 00 Yes [id number] 1{puff} Inhale 1 Puff in the morning and 1 Puff in the evening. [facility] montelukast 10 mg tablet 2022-0 -15 00:00: 00 Yes [id number] 10mg Take 1 tablet by mouth in the morning. [facility] tiotropium 18 mcg inhalation 3-0 5-15 00:00: 00 Yes [id number] 18ug Inhale 1 capsule in the morning. [facility] fluticasone propion-bella meteroL (ADVAIR DISKUS) 250-50 mcg/dose inhalation disk 3-0 5-15 00:00: 00 Yes [id number] 1{puff} Inhale 1 Puff in the morning and 1 Puff in the evening. [facility] montelukast 10 mg tablet 2023-0 5-15 00:00: 00 Yes [id number] 10mg Take 1 tablet by mouth in the morning. [facility] tiotropium 18 mcg inhalation 2022-0 5-15 00:00: 00 Yes [id number] 18ug Inhale 1 capsule in the morning. [facility] fluticasone propion-bella meteroL (ADVAIR DISKUS) 250-50 mcg/dose inhalation disk 2022-0 5-15 00:00: 00 Yes [id number] 1{puff} Inhale 1 Puff in the morning and 1 Puff in the evening. [facility] montelukast 10 mg tablet 2022-0 5-15 00:00: 00 Yes [id number] 10mg Take 1 tablet by mouth in the morning. [facility] tiotropium 18 mcg inhalation 2022-0 5-15 00:00: 00 Yes [id number] 18ug Inhale 1 capsule in the morning. [facility] montelukast 10 mg tablet 2022-0 -15 00:00: 00 Yes [id number] 10mg Take 1 tablet by mouth in the morning. [facility] montelukast 10 mg tablet 2022-0 -15 00:00: 00 Yes [id number] 10mg Take 1 tablet by mouth in the morning. [facility] montelukast 10 mg tablet 2022-0 -15 00:00: 00 Yes [id number] 10mg Take 1 tablet by mouth in the morning. [facility] montelukast 10 mg tablet 2022-0 5-15 00:00: 00 Yes [id number] 10mg Take 1 tablet by mouth in the morning. [facility] montelukast 10 mg tablet 3-0 5-15 00:00: 00 Yes [id number] 10mg Take 1 tablet by mouth in the morning. [facility] montelukast 10 mg tablet 3-0 5-15 00:00: 00 Yes [id number] 10mg Take 1 tablet by mouth in the morning. [facility] fluticasone propion-bella meteroL (ADVAIR DISKUS) 250-50 mcg/dose inhalation disk 15 00:00: 00 04-19 00:00 :00 No [id number] 1{puff} Inhale 1 Puff in the morning and 1 Puff in the evening. [facility] tiotropium 18 mcg inhalation 15 00:00: 00 04-19 00:00 :00 No [id number] 18ug Inhale 1 capsule in the morning. [facility] fluticasone propion-bella meteroL (ADVAIR DISKUS) 250-50 mcg/dose inhalation disk 01-31 00:00: 00 04-19 00:00 :00 No [id number] 1{puff} Inhale 1 Puff in the morning and 1 Puff in the evening. [facility] tiotropium 18 mcg inhalation 01-31 00:00: 00 04-19 00:00 :00 No [id number] 18ug Inhale 1 capsule in the morning. [facility] albuterol 90 mcg/actuati on inhaler 01-31 00:00: 00 02-04 00:00 :00 No [id number] 2{puff} Inhale 2 Puffs every 4 (four) hours as needed for Wheezing, Shortness of Breath or Bronchospa sm. [facility] ipratropium -albuteroL (DUONEB) 0.5 mg-3 mg(2.5 mg base)/3 mL nebulizer solution 3 mL 01-29 14:30: 00 01-29 13:29 :00 No 3mL 3 mL, Inhalation , ONCE, 1 dose, On 01/29/23 at 0930, MICHAEL [facility] predniSONE (DELTASONE) tablet 60 mg 01-29 13:30: 00 01-29 13:22 :00 No 60mg 60 mg, Oral, ONCE, 1 dose, On 01/29/23 at 0830, MICHAEL [facility] ipratropium -albuteroL (DUONEB) 0.5 mg-3 mg(2.5 mg base)/3 mL nebulizer solution 3 mL 01-27 13:00: 00 Yes 3mL 3 mL, Inhalation , QID, First dose on Tue01/27/23 at 0800, Until Discontinu ed, Routine [facility] ipratropium -albuteroL (DUONEB) 0.5 mg-3 mg(2.5 mg base)/3 mL nebulizer solution 3 mL 01-24 18:00: 00 01-24 18:15 :00 No 3mL 3 mL, Inhalation , ONCE, 1 dose, On Tue01/24/23 at 1300, MICHAEL [facility] furosemide (LASIX) injection 40 mg 01-24 18:00: 00 01-24 18:42 :00 No 40mg 40 mg, IV Push, ONCE, 1 dose, On Tue01/24/23 at 1300, MICHAEL [facility] aspirin tablet 325 mg 01-24 18:00: 00 01-24 18:44 :00 No 325mg 325 mg, Oral, ONCE, 1 dose, On Tue01/24/23 at 1300, STAT [facility] busPIRone 10 mg tablet 01-24 15:48: 43 Yes 10mg Take 1 tablet by mouth in the morning and 1 tablet in the evening. [facility] rivaroxaban 15 mg tablet 01-24 15:48: 43 Yes 15mg Take 1 tablet by mouth in the morning. [facility] ASPIRIN ORAL 01-24 15:48: 43 Yes 81mg Take 81 mg by mouth in the morning. tablet [facility] busPIRone 10 mg tablet 01-24 15:48: 43 Yes 10mg Take 1 tablet by mouth in the morning and 1 tablet in the evening. [facility] rivaroxaban 15 mg tablet 01-24 15:48: 43 Yes 15mg Take 1 tablet by mouth in the morning. [facility] ASPIRIN ORAL 01-24 15:48: 43 Yes 81mg Take 81 mg by mouth in the morning. tablet [facility] busPIRone 10 mg tablet 2023-0 5-08 15:48: 43 Yes 10mg Take 1 tablet by mouth in the morning and 1 tablet in the evening. [facility] rivaroxaban 15 mg tablet 2023-0 5-08 15:48: 43 Yes 15mg Take 1 tablet by mouth in the morning. [facility] ASPIRIN ORAL 2023-0 5-08 15:48: 43 Yes 81mg Take 81 mg by mouth in the morning. tablet [facility] busPIRone 10 mg tablet 3-0 5-08 15:48: 43 Yes 10mg Take 1 tablet by mouth in the morning and 1 tablet in the evening. [facility] rivaroxaban 15 mg tablet 2022-0 5-08 15:48: 43 Yes 15mg Take 1 tablet by mouth in the morning. [facility] ASPIRIN ORAL 2023-0 5-08 15:48: 43 Yes 81mg Take 81 mg by mouth in the morning. tablet [facility] busPIRone 10 mg tablet 3-0 5-08 15:48: 43 Yes 10mg Take 1 tablet by mouth in the morning and 1 tablet in the evening. [facility] rivaroxaban 15 mg tablet 2022-0 5-08 15:48: 43 Yes 15mg Take 1 tablet by mouth in the morning. [facility] ASPIRIN ORAL 2023-0 5-08 15:48: 43 Yes 81mg Take 81 mg by mouth in the morning. tablet [facility] busPIRone 10 mg tablet 3-0 5-08 15:48: 43 Yes 10mg Take 1 tablet by mouth in the morning and 1 tablet in the evening. [facility] rivaroxaban 15 mg tablet 3-0 5-08 15:48: 43 Yes 15mg Take 1 tablet by mouth in the morning. [facility] ASPIRIN ORAL 2023-0 5-08 15:48: 43 Yes 81mg Take 81 mg by mouth in the morning. tablet [facility] busPIRone 10 mg tablet 2023-0 5-08 15:48: 43 Yes 10mg Take 1 tablet by mouth in the morning and 1 tablet in the evening. [facility] rivaroxaban 15 mg tablet 2023-0 5-08 15:48: 43 Yes 15mg Take 1 tablet by mouth in the morning. [facility] ASPIRIN ORAL 2023-0 5-08 15:48: 43 Yes 81mg Take 81 mg by mouth in the morning. tablet [facility] busPIRone 10 mg tablet 2023-0 5-08 15:48: 43 Yes 10mg Take 1 tablet by mouth in the morning and 1 tablet in the evening. [facility] rivaroxaban 15 mg tablet 2023-0 5-08 15:48: 43 Yes 15mg Take 1 tablet by mouth in the morning. [facility] ASPIRIN ORAL 2023-0 5-08 15:48: 43 Yes 81mg Take 81 mg by mouth in the morning. tablet [facility] busPIRone 10 mg tablet 3-0 5-08 15:48: 43 Yes 10mg Take 1 tablet by mouth in the morning and 1 tablet in the evening. [facility] rivaroxaban 15 mg tablet 3-0 5-08 15:48: 43 Yes 15mg Take 1 tablet by mouth in the morning. [facility] ASPIRIN ORAL 2023-0 5-08 15:48: 43 Yes 81mg Take 81 mg by mouth in the morning. tablet [facility] busPIRone 10 mg tablet 3-0 5-08 15:48: 43 Yes 10mg Take 1 tablet by mouth in the morning and 1 tablet in the evening. [facility] rivaroxaban 15 mg tablet 3-0 5-08 15:48: 43 Yes 15mg Take 1 tablet by mouth in the morning. [facility] ASPIRIN ORAL 2023-0 5-08 15:48: 43 Yes 81mg Take 81 mg by mouth in the morning. tablet [facility] busPIRone 10 mg tablet 2023-0 5-08 15:48: 43 Yes 10mg Take 1 tablet by mouth in the morning and 1 tablet in the evening. [facility] rivaroxaban 15 mg tablet 2023-0 5-08 15:48: 43 Yes 15mg Take 1 tablet by mouth in the morning. [facility] ASPIRIN ORAL 2023-0 5-08 15:48: 43 Yes 81mg Take 81 mg by mouth in the morning. tablet [facility] busPIRone 10 mg tablet 01-24 15:48: 43 Yes 10mg Take 1 tablet by mouth in the morning and 1 tablet in the evening. [facility] rivaroxaban 15 mg tablet 01-24 15:48: 43 Yes 15mg Take 1 tablet by mouth in the morning. [facility] ASPIRIN ORAL 01-24 15:48: 43 Yes 81mg Take 81 mg by mouth in the morning. tablet [facility] busPIRone 10 mg tablet 01-24 15:48: 43 Yes 10mg Take 1 tablet by mouth in the morning and 1 tablet in the evening. [facility] rivaroxaban 15 mg tablet 01-24 15:48: 43 Yes 15mg Take 1 tablet by mouth in the morning. [facility] ASPIRIN ORAL 01-24 15:48: 43 Yes 81mg Take 81 mg by mouth in the morning. tablet [facility] levalbutero l (XOPENEX) nebulizer solution 1.25 mg 01-23 00:15: 00 01-22 23:35 :00 No 1.25mg 1.25 mg, Inhalation , ONCE, 1 dose, On 01/22/23 at 1915, Routine [facility] ipratropium (ATROVENT) 0.02 % nebulizer solution 0.5 mg 01-22 23:30: 00 01-22 23:36 :00 No .5mg 0.5 mg, Inhalation , ONCE, 1 dose, On 01/22/23 at 1830, MICHAEL [facility] diltiazem (CARDIZEM) tablet 30 mg 01-21 23:00: 00 Yes 30mg 30 mg, Oral, Q6H, First dose on Tue01/21/23 at 1800, Until Discontinu ed, Routine [facility] methylpredn isolone sod succ (SOLU-MEDRO L) injection 125 mg 01-21 23:00: 00 Yes 125mg 125 mg, Intravenou s, Q6H, First dose on Tue01/21/23 at 1800, Until Discontinu ed, Routine [facility] ipratropium -albuteroL (DUONEB) 0.5 mg-3 mg(2.5 mg base)/3 mL nebulizer solution 3 mL 01-21 20:45: 00 01-21 19:54 :00 No 3mL 3 mL, Inhalation , ONCE, 1 dose, On Tue01/21/23 at 1545, Routine [facility] diltiazem (CARDIZEM IV) injection 15 mg 01-21 19:45: 00 01-21 20:06 :00 No 15mg 15 mg, IV Push, ONCE, 1 dose, On Tue01/21/23 at 1445, STAT
Fa culty member approving Restricted medication : LOUIS HONG [facility] NaCl 0.9% (NS) bolus infusion 1,000 mL 01-21 19:45: 00 01-21 22:17 :00 No 1000mL at 999 mL/hr, 1,000 mL, IV Infusion, ONCE, 1 dose, On Tue01/21/23 at 1445, STAT [facility] predniSONE 20 mg tablet 01-20 00:00: 00 01-25 04:59 :00 No [id number] 40mg Take 2 tablets by mouth in the morning for 4 days. [facility] predniSONE 20 mg tablet 01-20 00:00: 00 01-25 04:59 :00 No [id number] 40mg Take 2 tablets by mouth in the morning for 4 days. [facility] predniSONE 20 mg tablet 01-20 00:00: 00 01-25 04:59 :00 No [id number] 40mg Take 2 tablets by mouth in the morning for 4 days. [facility] predniSONE 20 mg tablet 01-20 00:00: 00 01-25 04:59 :00 No [id number] 40mg Take 2 tablets by mouth in the morning for 4 days. [facility] predniSONE 20 mg tablet 01-20 00:00: 00 01-25 04:59 :00 No [id number] 40mg Take 2 tablets by mouth in the morning for 4 days. [facility] predniSONE 20 mg tablet 01-20 00:00: 00 01-25 04:59 :00 No [id number] 40mg Take 2 tablets by mouth in the morning for 4 days. [facility] predniSONE 20 mg tablet 01-20 00:00: 00 01-25 04:59 :00 No [id number] 40mg Take 2 tablets by mouth in the morning for 4 days. [facility] enoxaparin (LOVENOX) injection 40 mg 01-19 22:00: 00 Yes 40mg 40 mg, Subcutaneo us, DAILY, First dose on Tue01/19/23 at 1700, Until Discontinu ed, Routine [facility] levalbutero l (XOPENEX) nebulizer solution 1.25 mg 01-19 21:00: 00 Yes 1.25mg 1.25 mg, Inhalation , QID, First dose (after last modificati on) on Tue01/19/23 at 1600, Until Discontinu ed, [facility] ([facility]OVENT) 0.02 % nebulizer solution 0.5 mg 01-19 21:00: 00 Yes .5mg 0.5 mg, Inhalation , QID, First dose (after last modificati on) on Tue01/19/23 at 1600, Until Discontinu ed, Routine [facility] busPIRone 10 mg tablet 01-19 19:49: 16 Yes 10mg Take 1 tablet by mouth in the morning and 1 tablet in the evening. [facility] rivaroxaban 15 mg tablet 01-19 19:49: 16 Yes 15mg Take 1 tablet by mouth in the morning. [facility] ASPIRIN ORAL 01-19 19:49: 16 Yes 81mg Take 81 mg by mouth in the morning. tablet [facility] busPIRone 10 mg tablet 2022-0 - 19:49: 16 Yes 10mg Take 1 tablet by mouth in the morning and 1 tablet in the evening. [facility] rivaroxaban 15 mg tablet 0 01-19 19:49: 16 Yes 15mg Take 1 tablet by mouth in the morning. [facility] ASPIRIN ORAL 2022-0 01-19 19:49: 16 Yes 81mg Take 81 mg by mouth in the morning. tablet [facility] busPIRone 10 mg tablet 0 01-19 19:49: 16 Yes 10mg Take 1 tablet by mouth in the morning and 1 tablet in the evening. [facility] rivaroxaban 15 mg tablet 0 01-19 19:49: 16 Yes 15mg Take 1 tablet by mouth in the morning. [facility] ASPIRIN ORAL 2022-0 01-19 19:49: 16 Yes 81mg Take 81 mg by mouth in the morning. tablet [facility] busPIRone 10 mg tablet 0 01-19 19:49: 16 Yes 10mg Take 1 tablet by mouth in the morning and 1 tablet in the evening. [facility] rivaroxaban 15 mg tablet 0 01-19 19:49: 16 Yes 15mg Take 1 tablet by mouth in the morning. [facility] ASPIRIN ORAL 2022-0 01-19 19:49: 16 Yes 81mg Take 81 mg by mouth in the morning. tablet [facility] busPIRone 10 mg tablet 2022-0 01-19 19:49: 16 Yes 10mg Take 1 tablet by mouth in the morning and 1 tablet in the evening. [facility] rivaroxaban 15 mg tablet 2022-0 01-19 19:49: 16 Yes 15mg Take 1 tablet by mouth in the morning. [facility] ASPIRIN ORAL 2022-0 - 19:49: 16 Yes 81mg Take 81 mg by mouth in the morning. tablet [facility] busPIRone 10 mg tablet 2022-0 01-19 19:49: 16 Yes 10mg Take 1 tablet by mouth in the morning and 1 tablet in the evening. [facility] rivaroxaban 15 mg tablet 01-19 19:49: 16 Yes 15mg Take 1 tablet by mouth in the morning. [facility] ASPIRIN ORAL 01-19 19:49: 16 Yes 81mg Take 81 mg by mouth in the morning. tablet [facility] benazepriL 10 mg tablet 01-19 17:28: 05 01-19 00:00 :00 No 10mg Take 1 tablet by mouth in the morning. [facility] potassium chloride (KCL-20 ORAL) 01-19 17:28: 01-19 00:00 :00 No 1{tbl} Take 1 tablet by mouth in the morning and 1 tablet in the evening. [facility] aspirin chewable tablet 81 mg 01-19 14:00: 00 Yes 81mg 81 mg, Oral, DAILY, First dose on Tue01/19/23 at 0900, Until Discontinu ed [facility] predniSONE (DELTASONE) tablet 40 mg 01-19 14:00: 00 01-24 13:59 :00 No 40mg 40 mg, Oral, DAILY, 5 doses, First dose on Tue01/19/23 at 0900, Last dose on Tue01/23/23 at 0900, Routine [facility] busPIRone (BUSPAR) tablet 10 mg 01-19 13:00: 00 Yes 10mg 10 mg, Oral, BID, First dose on Tue01/19/23 at 0800, Until Discontinu ed, Routine [facility] ipratropium (ATROVENT) 0.02 % nebulizer solution 0.5 mg 01-19 13:00: 00 01-19 19:13 :37 No .5mg 0.5 mg, Inhalation , TID, First dose (after last modificati on) on Tue01/19/23 at 0800, Until Discontinu ed, Routine [facility] levalbutero l (XOPENEX) nebulizer solution 1.25 mg 01-19 13:00: 00 01-19 19:13 :37 No 1.25mg 1.25 mg, Inhalation , TID, First dose on Tue01/19/23 at 0800, Until Discontinu ed, Routine [facility] sodium polystyrene sulfonate (KAYEXALATE ) 15 gram/60 mL suspension 15 g 01-19 13:00: 00 01-19 13:22 :00 No 15g 15 g, Oral, ONCE, 1 dose, On Tue01/19/23 at 0800, Routine [facility] ipratropium (ATROVENT) 0.02 % nebulizer solution 0.5 mg 01-19 09:00: 00 01-19 12:09 :19 No .5mg 0.5 mg, Inhalation , Q4H, First dose on Tue01/19/23 at 0400, Until Discontinu ed, Routine [facility] levoFLOXaci n (LEVAQUIN) tablet 500 mg 01-19 08:15: 00 01-24 08:14 :00 No 500mg 500 mg, Oral, Q24H ABX, 5 doses, First dose on Tue01/19/23 at 0315, Last dose on Tue01/23/23 at 0315, MICHAEL
Re ason for Anti-Infec tive: Empiric Therapy for Suspected Infection< br>Empiric Therapy Site: Respirator y
Durat ion of therapy: 5 [facility] guaiFENesin 100 mg/5 mL solution 200 mg 01-19 08:04: 52 Yes 200mg 200 mg, Oral, Q6HPRN, Starting on Tue01/19/23 at 0304, Until Discontinu ed, Routine, Cough [facility] ondansetron (ZOFRAN (PF)) injection 4 mg 01-19 08:03: 53 Yes 4mg 4 mg, Slow IV Push, Q6HPRN, Starting on Tue01/19/23 at 0303, Until Discontinu ed, Routine, Nausea and Vomiting (N/V) [facility] morpHINE (2 mg/mL) injection 2 mg 01-19 08:03: 43 01-20 08:02 :43 No 2mg 2 mg, Slow IV Push, Q4HPRN, Starting on Tue01/19/23 at 0303, Until Elizabeth 01/20/23 at 0302, Routine, Pain (scale 7-10) [facility] HYDROcodone -acetaminop hen (NORCO 5) 5-325 mg tablet 1 tablet 01-19 08:03: 39 01-21 08:02 :39 No 1{tbl} 1 tablet, Oral, Q6HPRN, Starting on Tue01/19/23 at 0303, Until Tue01/21/23 at 0302, Routine, Pain (scale 4-6) [facility] acetaminoph en (TYLENOL) tablet 650 mg 01-19 08:03: 35 Yes 650mg 650 mg, Oral, Q6HPRN, Starting on Tue01/19/23 at 030, Until Discontinu ed, Routine, Pain (scale 1-3) [facility] levalbutero l (XOPENEX) nebulizer solution 1.25 mg 01-19 07:30: 00 01-19 07:08 :00 No 1.25mg 1.25 mg, Inhalation , ONCE, 1 dose, On Tue01/19/23 at 0230, Routine [facility] dexamethaso ne sod phos PF injection 10 mg 01-19 06:58: 00 01-19 07:06 :00 No 10mg 10 mg, Oral, ONCE, 1 dose, On Tue01/19/23 at 0200, 1 mL [facility] ipratropium (ATROVENT) 0.02 % nebulizer solution 0.5 mg 01-19 06:45: 00 01-19 07:09 :00 No .5mg 0.5 mg, Inhalation , ONCE, 1 dose, On Tue01/19/23 at 0145, MICHAEL [facility] ipratropium 0.02 % nebulizer solution 01-19 00:00: 00 Yes [id number] .5mg Inhale 2.5 mL every 6 (six) hours as needed for Wheezing, Shortness of Breath, Bronchospa sm or Chest tightness. [facility] guaiFENesin 100 mg/5 mL solution 01-19 00:00: 00 Yes [id number] 200mg Take 10 mL by mouth every 6 (six) hours as needed for Cough. [facility] ipratropium 0.02 % nebulizer solution 01-19 00:00: 00 Yes [id number] .5mg Inhale 2.5 mL every 6 (six) hours as needed for Wheezing, Shortness of Breath, Bronchospa sm or Chest tightness. [facility] guaiFENesin 100 mg/5 mL solution 01-19 00:00: 00 Yes [id number] 200mg Take 10 mL by mouth every 6 (six) hours as needed for Cough. [facility] ipratropium 0.02 % nebulizer solution 01-19 00:00: 00 Yes [id number] .5mg Inhale 2.5 mL every 6 (six) hours as needed for Wheezing, Shortness of Breath, Bronchospa sm or Chest tightness. [facility] guaiFENesin 100 mg/5 mL solution 01-19 00:00: 00 Yes [id number] 200mg Take 10 mL by mouth every 6 (six) hours as needed for Cough. [facility] ipratropium 0.02 % nebulizer solution 01-19 00:00: 00 Yes [id number] .5mg Inhale 2.5 mL every 6 (six) hours as needed for Wheezing, Shortness of Breath, Bronchospa sm or Chest tightness. [facility] guaiFENesin 100 mg/5 mL solution 01-19 00:00: 00 Yes [id number] 200mg Take 10 mL by mouth every 6 (six) hours as needed for Cough. [facility] ipratropium 0.02 % nebulizer solution 01-19 00:00: 00 Yes [id number] .5mg Inhale 2.5 mL every 6 (six) hours as needed for Wheezing, Shortness of Breath, Bronchospa sm or Chest tightness. [facility] guaiFENesin 100 mg/5 mL solution 01-19 00:00: 00 Yes [id number] 200mg Take 10 mL by mouth every 6 (six) hours as needed for Cough. [facility] ipratropium 0.02 % nebulizer solution 01-19 00:00: 00 Yes [id number] .5mg Inhale 2.5 mL every 6 (six) hours as needed for Wheezing, Shortness of Breath, Bronchospa sm or Chest tightness. [facility] guaiFENesin 100 mg/5 mL solution 01-19 00:00: 00 Yes [id number] 200mg Take 10 mL by mouth every 6 (six) hours as needed for Cough. [facility] ipratropium 0.02 % nebulizer solution 01-19 00:00: 00 Yes [id number] .5mg Inhale 2.5 mL every 6 (six) hours as needed for Wheezing, Shortness of Breath, Bronchospa sm or Chest tightness. [facility] guaiFENesin 100 mg/5 mL solution 01-19 00:00: 00 Yes [id number] 200mg Take 10 mL by mouth every 6 (six) hours as needed for Cough. [facility] ipratropium 0.02 % nebulizer solution 01-19 00:00: 00 Yes [id number] .5mg Inhale 2.5 mL every 6 (six) hours as needed for Wheezing, Shortness of Breath, Bronchospa sm or Chest tightness. [facility] guaiFENesin 100 mg/5 mL solution 01-19 00:00: 00 Yes [id number] 200mg Take 10 mL by mouth every 6 (six) hours as needed for Cough. [facility] guaiFENesin 100 mg/5 mL solution 0 01-19 00:00: 00 Yes [id number] 200mg Take 10 mL by mouth every 6 (six) hours as needed for Cough. [facility] guaiFENesin 100 mg/5 mL solution 2023-0 5-03 00:00: 00 Yes [id number] 200mg Take 10 mL by mouth every 6 (six) hours as needed for Cough. [facility] guaiF[facility]in 100 mg/5 mL solution 2023-0 5-03 00:00: 00 Yes [id number] 200mg Take 10 mL by mouth every 6 (six) hours as needed for Cough. [facility] guaiFENesin 100 mg/5 mL solution 2023-0 5-03 00:00: 00 Yes [id number] 200mg Take 10 mL by mouth every 6 (six) hours as needed for Cough. [facility] guaiFENesin 100 mg/5 mL solution 3-0 5-03 00:00: 00 Yes [id number] 200mg Take 10 mL by mouth every 6 (six) hours as needed for Cough. [facility] guaiFENesin 100 mg/5 mL solution 3-0 5-03 00:00: 00 Yes [id number] 200mg Take 10 mL by mouth every 6 (six) hours as needed for Cough. [facility] guaiFENesin 100 mg/5 mL solution 3-0 5-03 00:00: 00 Yes [id number] 200mg Take 10 mL by mouth every 6 (six) hours as needed for Cough. [facility] guaiFENesin 100 mg/5 mL solution 3-0 5-03 00:00: 00 Yes [id number] 200mg Take 10 mL by mouth every 6 (six) hours as needed for Cough. [facility] guaiFENesin 100 mg/5 mL solution 3-0 5-03 00:00: 00 Yes [id number] 200mg Take 10 mL by mouth every 6 (six) hours as needed for Cough. [facility] guaiFENesin 100 mg/5 mL solution 3-0 5-03 00:00: 00 Yes [id number] 200mg Take 10 mL by mouth every 6 (six) hours as needed for Cough. [facility] guaiFENesin 100 mg/5 mL solution 2023-0 5-03 00:00: 00 Yes [id number] 200mg Take 10 mL by mouth every 6 (six) hours as needed for Cough. [facility] guaiFENesin 100 mg/5 mL solution 01-19 00:00: 00 Yes [id number] 200mg Take 10 mL by mouth every 6 (six) hours as needed for Cough. [facility] guaiFENesin 100 mg/5 mL solution 01-19 00:00: 00 Yes [id number] 200mg Take 10 mL by mouth every 6 (six) hours as needed for Cough. [facility] ipratropium 0.02 % nebulizer solution 01-19 00:00: 00 Yes [id number] .5mg Inhale 2.5 mL every 6 (six) hours as needed for Wheezing, Shortness of Breath, Bronchospa sm or Chest tightness. [facility] guaiFENesin 100 mg/5 mL solution 01-19 00:00: 00 Yes [id number] 200mg Take 10 mL by mouth every 6 (six) hours as needed for Cough. [facility] ipratropium 0.02 % nebulizer solution 01-19 00:00: 00 Yes [id number] .5mg Inhale 2.5 mL every 6 (six) hours as needed for Wheezing, Shortness of Breath, Bronchospa sm or Chest tightness. [facility] guaiFENesin 100 mg/5 mL solution 01-19 00:00: 00 Yes [id number] 200mg Take 10 mL by mouth every 6 (six) hours as needed for Cough. [facility] ipratropium 0.02 % nebulizer solution 01-19 00:00: 00 Yes [id number] .5mg Inhale 2.5 mL every 6 (six) hours as needed for Wheezing, Shortness of Breath, Bronchospa sm or Chest tightness. [facility] guaiFENesin 100 mg/5 mL solution 01-19 00:00: 00 Yes [id number] 200mg Take 10 mL by mouth every 6 (six) hours as needed for Cough. [facility] ipratropium 0.02 % nebulizer solution 01-19 00:00: 00 Yes [id number] .5mg Inhale 2.5 mL every 6 (six) hours as needed for Wheezing, Shortness of Breath, Bronchospa sm or Chest tightness. [facility] guaiFENesin 100 mg/5 mL solution 01-19 00:00: 00 Yes [id number] 200mg Take 10 mL by mouth every 6 (six) hours as needed for Cough. [facility] ipratropium 0.02 % nebulizer solution 01-19 00:00: 00 Yes [id number] .5mg Inhale 2.5 mL every 6 (six) hours as needed for Wheezing, Shortness of Breath, Bronchospa sm or Chest tightness. [facility] guaiFENesin 100 mg/5 mL solution 01-19 00:00: 00 Yes [id number] 200mg Take 10 mL by mouth every 6 (six) hours as needed for Cough. [facility] ipratropium 0.02 % nebulizer solution 01-19 00:00: 00 Yes [id number] .5mg Inhale 2.5 mL every 6 (six) hours as needed for Wheezing, Shortness of Breath, Bronchospa sm or Chest tightness. [facility] guaiFENesin 100 mg/5 mL solution 01-19 00:00: 00 Yes [id number] 200mg Take 10 mL by mouth every 6 (six) hours as needed for Cough. [facility] ipratropium 0.02 % nebulizer solution 01-19 00:00: 00 Yes [id number] .5mg Inhale 2.5 mL every 6 (six) hours as needed for Wheezing, Shortness of Breath, Bronchospa sm or Chest tightness. [facility] guaiFENesin 100 mg/5 mL solution 01-19 00:00: 00 Yes [id number] 200mg Take 10 mL by mouth every 6 (six) hours as needed for Cough. [facility] ipratropium 0.02 % nebulizer solution 01-19 00:00: 00 Yes [id number] .5mg Inhale 2.5 mL every 6 (six) hours as needed for Wheezing, Shortness of Breath, Bronchospa sm or Chest tightness. [facility] guaiFENesin 100 mg/5 mL solution 01-19 00:00: 00 Yes [id number] 200mg Take 10 mL by mouth every 6 (six) hours as needed for Cough. [facility] ipratropium 0.02 % nebulizer solution 01-19 00:00: 00 Yes [id number] .5mg Inhale 2.5 mL every 6 (six) hours as needed for Wheezing, Shortness of Breath, Bronchospa sm or Chest tightness. [facility] guaiFENesin 100 mg/5 mL solution 01-19 00:00: 00 Yes [id number] 200mg Take 10 mL by mouth every 6 (six) hours as needed for Cough. [facility] ipratropium 0.02 % nebulizer solution 01-19 00:00: 00 Yes [id number] .5mg Inhale 2.5 mL every 6 (six) hours as needed for Wheezing, Shortness of Breath, Bronchospa sm or Chest tightness. [facility] guaiFENesin 100 mg/5 mL solution 01-19 00:00: 00 Yes [id number] 200mg Take 10 mL by mouth every 6 (six) hours as needed for Cough. [facility] ipratropium 0.02 % nebulizer solution 01-19 00:00: 00 Yes [id number] .5mg Inhale 2.5 mL every 6 (six) hours as needed for Wheezing, Shortness of Breath, Bronchospa sm or Chest tightness. [facility] guaiFENesin 100 mg/5 mL solution 01-19 00:00: 00 Yes [id number] 200mg Take 10 mL by mouth every 6 (six) hours as needed for Cough. [facility] ipratropium 0.02 % nebulizer solution 01-19 00:00: 00 02-17 00:00 :00 No [id number] .5mg Inhale 2.5 mL every 6 (six) hours as needed for Wheezing, Shortness of Breath, Bronchospa sm or Chest tightness. [facility] levoFLOXaci n 500 mg tablet 01-19 00:00: 00 01-24 04:59 :00 No [id number] 500mg Take 1 tablet by mouth in the morning for 4 days. [facility] levoFLOXaci n 500 mg tablet 01-19 00:00: 00 01-24 04:59 :00 No [id number] 500mg Take 1 tablet by mouth in the morning for 4 days. [facility] levoFLOXaci n 500 mg tablet 01-19 00:00: 00 01-24 04:59 :00 No [id number] 500mg Take 1 tablet by mouth in the morning for 4 days. [facility] levoFLOXaci n 500 mg tablet 01-19 00:00: 00 01-24 04:59 :00 No [id number] 500mg Take 1 tablet by mouth in the morning for 4 days. [facility] levoFLOXaci n 500 mg tablet 01-19 00:00: 00 01-24 04:59 :00 No [id number] 500mg Take 1 tablet by mouth in the morning for 4 days. [facility] levoFLOXaci n 500 mg tablet 01-19 00:00: 00 01-24 04:59 :00 No [id number] 500mg Take 1 tablet by mouth in the morning for 4 days. [facility] levalbutero l (XOPENEX) nebulizer solution 1.25 mg 01-17 13:00: 00 01-17 11:56 :39 No 1.25mg 1.25 mg, Inhalation , TID, First dose on Tue01/17/23 at 0800, Until Discontinu ed, Routine [facility] methylpredn isolone sod succ (SOLU-MEDRO L) injection 125 mg 01-17 12:00: 00 01-17 11:11 :00 No 125mg 125 mg, Intravenou s, ONCE, 1 dose, On Tue01/17/23 at 0700, 2 mL [facility] ipratropium (ATROVENT) 0.02 % nebulizer solution 0.5 mg 01-17 11:45: 00 01-17 11:42 :00 No .5mg 0.5 mg, Inhalation , ONCE, 1 dose, On Tue01/17/23 at 0645, MICHAEL [facility] albuterol 90 mcg/actuati on inhaler 01-17 00:00: 00 Yes [id number] 2{puff} Inhale 2 Puffs every 4 (four) hours as needed for Wheezing or Shortness of Breath. [facility] albuterol 2.5 mg /3 mL (0.083 %) nebulizer solution 01-17 00:00: 00 Yes [id number] 2.5mg Inhale 3 mL every 4 (four) hours. May also nebulize one extra every 6 hours. [facility] predniSONE 50 mg tablet 01-17 00:00: 00 Yes [id number] 50mg Take 1 tablet by mouth in the morning. [facility] benzonatate 200 mg capsule 01-17 00:00: 00 Yes [id number] 200mg Take 1 capsule by mouth 3 (three) times daily as needed for Cough. [facility] ipratropium 0.02 % nebulizer solution 01-17 00:00: 00 Yes [id number] .5mg Inhale 2.5 mL every 6 (six) hours as needed for Wheezing, Shortness of Breath, Bronchospa sm or Chest tightness. [facility] albuterol 90 mcg/actuati on inhaler 01-17 00:00: 00 Yes [id number] 2{puff} Inhale 2 Puffs every 4 (four) hours as needed for Wheezing or Shortness of Breath. [facility] albuterol 2.5 mg /3 mL (0.083 %) nebulizer solution 01-17 00:00: 00 Yes [id number] 2.5mg Inhale 3 mL every 4 (four) hours. May also nebulize one extra every 6 hours. [facility] 01-17 00:00: 00 Yes [id number] 200mg Take 1 capsule by mouth 3 (three) times daily as needed for Cough. [facility] albuterol 90 mcg/actuati on inhaler 01-17 00:00: 00 Yes [id number] 2{puff} Inhale 2 Puffs every 4 (four) hours as needed for Wheezing or Shortness of Breath. [facility] 2.5 mg /3 mL (0.083 %) nebulizer solution 01-17 00:00: 00 Yes [id number] 2.5mg Inhale 3 mL every 4 (four) hours. May also nebulize one extra every 6 hours. [facility] benzon[facility] mg capsule 01-17 00:00: 00 Yes [id number] 200mg Take 1 capsule by mouth 3 (three) times daily as needed for Cough. [facility] al[facility]ol [facility] mcg/actuati on inhaler 01-17 00:00: 00 Yes [id number] 2{puff} Inhale 2 Puffs every 4 (four) hours as needed for Wheezing or Shortness of Breath. [facility] albuterol 2.5 mg /3 mL (0.083 %) nebulizer solution 01-17 00:00: 00 Yes [id number] 2.5mg Inhale 3 mL every 4 (four) hours. May also nebulize one extra every 6 hours. [facility] benzonatate 200 mg capsule 01-17 00:00: 00 Yes [id number] 200mg Take 1 capsule by mouth 3 (three) times daily as needed for Cough. [facility] al[facility]erol 90 mcg/actuati on inhaler 01-17 00:00: 00 Yes [id number] 2{puff} Inhale 2 Puffs every 4 (four) hours as needed for Wheezing or Shortness of Breath. [facility] al[facility]er[facility] 2.5 mg /3 mL (0.083 %) nebulizer solution 01-17 00:00: 00 Yes [id number] 2.5mg Inhale 3 mL every 4 (four) hours. May also nebulize one extra every 6 hours. [facility] benzonatate 200 mg capsule 01-17 00:00: 00 Yes [id number] 200mg Take 1 capsule by mouth 3 (three) times daily as needed for Cough. [facility] albuterol 90 mcg/actuati on inhaler 01-17 00:00: 00 Yes [id number] 2{puff} Inhale 2 Puffs every 4 (four) hours as needed for Wheezing or Shortness of Breath. [facility] albuterol 2.5 mg /3 mL (0.083 %) nebulizer solution 01-17 00:00: 00 Yes [id number] 2.5mg Inhale 3 mL every 4 (four) hours. May also nebulize one extra every 6 hours. [facility] benzonatate 200 mg capsule 01-17 00:00: 00 Yes [id number] 200mg Take 1 capsule by mouth 3 (three) times daily as needed for Cough. [facility] albuterol 90 mcg/actuati on inhaler 01-17 00:00: 00 Yes [id number] 2{puff} Inhale 2 Puffs every 4 (four) hours as needed for Wheezing or Shortness of Breath. [facility] albuterol 2.5 mg /3 mL (0.083 %) nebulizer solution 01-17 00:00: 00 Yes [id number] 2.5mg Inhale 3 mL every 4 (four) hours. May also nebulize one extra every 6 hours. [facility] benzonatate 200 mg capsule 01-17 00:00: 00 Yes [id number] 200mg Take 1 capsule by mouth 3 (three) times daily as needed for Cough. [facility] albuterol 90 mcg/actuati on inhaler 01-17 00:00: 00 Yes [id number] 2{puff} Inhale 2 Puffs every 4 (four) hours as needed for Wheezing or Shortness of Breath. [facility] albuterol 2.5 mg /3 mL (0.083 %) nebulizer solution 01-17 00:00: 00 Yes [id number] 2.5mg Inhale 3 mL every 4 (four) hours. May also nebulize one extra every 6 hours. [facility] benzon[facility] mg capsule 01-17 00:00: 00 Yes [id number] 200mg Take 1 capsule by mouth 3 (three) times daily as needed for Cough. [facility] albuterol 90 mcg/actuati on inhaler 01-17 00:00: 00 Yes [id number] 2{puff} Inhale 2 Puffs every 4 (four) hours as needed for Wheezing or Shortness of Breath. [facility] albuterol 2.5 mg /3 mL (0.083 %) nebulizer solution 01-17 00:00: 00 Yes [id number] 2.5mg Inhale 3 mL every 4 (four) hours. May also nebulize one extra every 6 hours. [facility] benzonatate 200 mg capsule 01-17 00:00: 00 Yes [id number] 200mg Take 1 capsule by mouth 3 (three) times daily as needed for Cough. [facility] al[facility]erol 90 mcg/actuati on inhaler 01-17 00:00: 00 Yes [id number] 2{puff} Inhale 2 Puffs every 4 (four) hours as needed for Wheezing or Shortness of Breath. [facility] albuterol 2.5 mg /3 mL (0.083 %) nebulizer solution 01-17 00:00: 00 Yes [id number] 2.5mg Inhale 3 mL every 4 (four) hours. May also nebulize one extra every 6 hours. [facility] benzon[facility]ate [facility] mg capsule 01-17 00:00: 00 Yes [id number] 200mg Take 1 capsule by mouth 3 (three) times daily as needed for Cough. [facility] albuterol 90 mcg/actuati on inhaler 01-17 00:00: 00 Yes [id number] 2{puff} Inhale 2 Puffs every 4 (four) hours as needed for Wheezing or Shortness of Breath. [facility] al[facility]erol 2.5 mg /3 mL (0.083 %) nebulizer solution 01-17 00:00: 00 Yes [id number] 2.5mg Inhale 3 mL every 4 (four) hours. May also nebulize one extra every 6 hours. [facility] benzonatate 200 mg capsule 01-17 00:00: 00 Yes [id number] 200mg Take 1 capsule by mouth 3 (three) times daily as needed for Cough. [facility] albuterol 90 mcg/actuati on inhaler 01-17 00:00: 00 Yes [id number] 2{puff} Inhale 2 Puffs every 4 (four) hours as needed for Wheezing or Shortness of Breath. [facility] albuterol 2.5 mg /3 mL (0.083 %) nebulizer solution 01-17 00:00: 00 Yes [id number] 2.5mg Inhale 3 mL every 4 (four) hours. May also nebulize one extra every 6 hours. [facility] benzonatate 200 mg capsule 01-17 00:00: 00 Yes [id number] 200mg Take 1 capsule by mouth 3 (three) times daily as needed for Cough. [facility] albuterol 90 mcg/actuati on inhaler 01-17 00:00: 00 Yes [id number] 2{puff} Inhale 2 Puffs every 4 (four) hours as needed for Wheezing or Shortness of Breath. [facility] albuterol 2.5 mg /3 mL (0.083 %) nebulizer solution 01-17 00:00: 00 Yes [id number] 2.5mg Inhale 3 mL every 4 (four) hours. May also nebulize one extra every 6 hours. [facility] benzonatate [facility] mg capsule 01-17 00:00: 00 Yes [id number] 200mg Take 1 capsule by mouth 3 (three) times daily as needed for Cough. [facility] albuterol 90 mcg/actuati on inhaler 01-17 00:00: 00 Yes [id number] 2{puff} Inhale 2 Puffs every 4 (four) hours as needed for Wheezing or Shortness of Breath. [facility] albuterol 2.5 mg /3 mL (0.083 %) nebulizer solution 01-17 00:00: 00 Yes [id number] 2.5mg Inhale 3 mL every 4 (four) hours. May also nebulize one extra every 6 hours. [facility] benzonatate 200 mg capsule 01-17 00:00: 00 Yes [id number] 200mg Take 1 capsule by mouth 3 (three) times daily as needed for Cough. [facility] albuterol 90 mcg/actuati on inhaler 01-17 00:00: 00 Yes [id number] 2{puff} Inhale 2 Puffs every 4 (four) hours as needed for Wheezing or Shortness of Breath. [facility] albuterol 2.5 mg /3 mL (0.083 %) nebulizer solution 01-17 00:00: 00 Yes [id number] 2.5mg Inhale 3 mL every 4 (four) hours. May also nebulize one extra every 6 hours. [facility] benzonatate 200 mg capsule 01-17 00:00: 00 Yes [id number] 200mg Take 1 capsule by mouth 3 (three) times daily as needed for Cough. [facility] albuterol 90 mcg/actuati on inhaler 01-17 00:00: 00 Yes [id number] 2{puff} Inhale 2 Puffs every 4 (four) hours as needed for Wheezing or Shortness of Breath. [facility] albuterol 2.5 mg /3 mL (0.083 %) nebulizer solution 01-17 00:00: 00 Yes [id number] 2.5mg Inhale 3 mL every 4 (four) hours. May also nebulize one extra every 6 hours. [facility] benzonatate 200 mg capsule 01-17 00:00: 00 Yes [id number] 200mg Take 1 capsule by mouth 3 (three) times daily as needed for Cough. [facility] albuterol 90 mcg/actuati on inhaler 01-17 00:00: 00 Yes [id number] 2{puff} Inhale 2 Puffs every 4 (four) hours as needed for Wheezing or Shortness of Breath. [facility] al[facility]erol 2.5 mg /3 mL (0.083 %) nebulizer solution 01-17 00:00: 00 Yes [id number] 2.5mg Inhale 3 mL every 4 (four) hours. May also nebulize one extra every 6 hours. [facility] benzon[facility] mg capsule 01-17 00:00: 00 Yes [id number] 200mg Take 1 capsule by mouth 3 (three) times daily as needed for Cough. [facility] al[facility]erol 2.5 mg /3 mL (0.083 %) nebulizer solution 01-17 00:00: 00 Yes [id number] 2.5mg Inhale 3 mL every 4 (four) hours. May also nebulize one extra every 6 hours. [facility] benzonatate 200 mg capsule 01-17 00:00: 00 Yes [id number] 200mg Take 1 capsule by mouth 3 (three) times daily as needed for Cough. [facility] al[facility]erol 2.5 mg /3 mL (0.083 %) nebulizer solution 01-17 00:00: 00 Yes [id number] 2.5mg Inhale 3 mL every 4 (four) hours. May also nebulize one extra every 6 hours. [facility] benzonatate [facility] mg capsule 01-17 00:00: 00 Yes [id number] 200mg Take 1 capsule by mouth 3 (three) times daily as needed for Cough. [facility] albuterol 2.5 mg /3 mL (0.083 %) nebulizer solution 01-17 00:00: 00 Yes [id number] 2.5mg Inhale 3 mL every 4 (four) hours. May also nebulize one extra every 6 hours. [facility] benzonatate 200 mg capsule 01-17 00:00: 00 Yes [id number] 200mg Take 1 capsule by mouth 3 (three) times daily as needed for Cough. [facility] albuterol 2.5 mg /3 mL (0.083 %) nebulizer solution 01-17 00:00: 00 Yes [id number] 2.5mg Inhale 3 mL every 4 (four) hours. May also nebulize one extra every 6 hours. [facility] albuterol 2.5 mg /3 mL (0.083 %) nebulizer solution 01-17 00:00: 00 Yes [id number] 2.5mg Inhale 3 mL every 4 (four) hours. May also nebulize one extra every 6 hours. [facility] albuterol 2.5 mg /3 mL (0.083 %) nebulizer solution 01-17 00:00: 00 Yes [id number] 2.5mg Inhale 3 mL every 4 (four) hours. May also nebulize one extra every 6 hours. [facility] albuterol 2.5 mg /3 mL (0.083 %) nebulizer solution 01-17 00:00: 00 Yes [id number] 2.5mg Inhale 3 mL every 4 (four) hours. May also nebulize one extra every 6 hours. [facility] albuterol 2.5 mg /3 mL (0.083 %) nebulizer solution 01-17 00:00: 00 Yes [id number] 2.5mg Inhale 3 mL every 4 (four) hours. May also nebulize one extra every 6 hours. [facility] albuterol 2.5 mg /3 mL (0.083 %) nebulizer solution 01-17 00:00: 00 Yes [id number] 2.5mg Inhale 3 mL every 4 (four) hours. May also nebulize one extra every 6 hours. [facility] albuterol 2.5 mg /3 mL (0.083 %) nebulizer solution 01-17 00:00: 00 03-03 00:00 :00 No [id number] 2.5mg Inhale 3 mL every 4 (four) hours. May also nebulize one extra every 6 hours. [facility] benzonatate 200 mg capsule 01-17 00:00: 00 02-17 00:00 :00 No [id number] 200mg Take 1 capsule by mouth 3 (three) times daily as needed for Cough. [facility] albuterol 90 mcg/actuati on inhaler 01-17 00:00: 00 02-04 00:00 :00 No [id number] 2{puff} Inhale 2 Puffs every 4 (four) hours as needed for Wheezing or Shortness of Breath. [facility] predniSONE 50 mg tablet 01-17 00:00: 00 01-19 00:00 :00 No [id number] 50mg Take 1 tablet by mouth in the morning. [facility] ipratropium 0.02 % nebulizer solution 01-17 00:00: 00 01-19 00:00 :00 No [id number] .5mg Inhale 2.5 mL every 6 (six) hours as needed for Wheezing, Shortness of Breath, Bronchospa sm or Chest tightness. [facility] potassium chloride (KCL-20 ORAL) 01-07 14:37: 58 Yes 1{tbl} Take 1 tablet by mouth in the morning and 1 tablet in the evening. [facility] potassium chloride (KCL-20 ORAL) 01-07 14:37: 58 Yes 1{tbl} Take 1 tablet by mouth in the morning and 1 tablet in the evening. [facility] potassium chloride (KCL-20 ORAL) 01-07 14:37: 58 Yes 1{tbl} Take 1 tablet by mouth in the morning and 1 tablet in the evening. [facility] potassium chloride (KCL-20 ORAL) 01-07 14:37: 58 Yes 1{tbl} Take 1 tablet by mouth in the morning and 1 tablet in the evening. [facility] busPIRone 10 mg tablet 3-0 01-07 14:36: 57 Yes 10mg Take 1 tablet by mouth in the morning and 1 tablet in the evening. [facility] rivaroxaban 15 mg tablet 2022-0 01-07 14:36: 57 Yes 15mg Take 1 tablet by mouth in the morning. [facility] ASPIRIN ORAL 3-0 01-07 14:36: 57 Yes 81mg Take 81 mg by mouth in the morning. tablet [facility] benazepriL 10 mg tablet 2022-0 01-07 14:36: 57 Yes 10mg Take 1 tablet by mouth in the morning. [facility] busPIRone 10 mg tablet 2022-0 01-07 14:36: 57 Yes 10mg Take 1 tablet by mouth in the morning and 1 tablet in the evening. [facility] rivaroxaban 15 mg tablet 2022-0 01-07 14:36: 57 Yes 15mg Take 1 tablet by mouth in the morning. [facility] ASPIRIN ORAL 2022-0 01-07 14:36: 57 Yes 81mg Take 81 mg by mouth in the morning. tablet [facility] benazepriL 10 mg tablet 2022-0 01-07 14:36: 57 Yes 10mg Take 1 tablet by mouth in the morning. [facility] busPIRone 10 mg tablet 2022-0 01-07 14:36: 57 Yes 10mg Take 1 tablet by mouth in the morning and 1 tablet in the evening. [facility] rivaroxaban 15 mg tablet 2022-0 01-07 14:36: 57 Yes 15mg Take 1 tablet by mouth in the morning. [facility] ASPIRIN ORAL 3-0 01-07 14:36: 57 Yes 81mg Take 81 mg by mouth in the morning. tablet [facility] benazepriL 10 mg tablet 3-0 01-07 14:36: 57 Yes 10mg Take 1 tablet by mouth in the morning. [facility] busPIRone 10 mg tablet 3-0 4-21 14:36: 57 Yes 10mg Take 1 tablet by mouth in the morning and 1 tablet in the evening. [facility] rivaroxaban 15 mg tablet 2022-0 01-07 14:36: 57 Yes 15mg Take 1 tablet by mouth in the morning. [facility] ASPIRIN ORAL 3-0 01-07 14:36: 57 Yes 81mg Take 81 mg by mouth in the morning. tablet [facility] benazepriL 10 mg tablet 2022-0 01-07 14:36: 57 Yes 10mg Take 1 tablet by mouth in the morning. [facility] donepeziL 5 mg tablet 2022-0 01-07 00:00: 00 Yes 5mg Take 1 tablet by mouth in the morning. [facility] memantine 5 mg tablet 2022-0 01-07 00:00: 00 Yes 5mg Take 1 tablet by mouth in the morning. [facility] donepeziL 5 mg tablet 3-0 21 00:00: 00 Yes 5mg Take 1 tablet by mouth in the morning. [facility] memantine 5 mg tablet 3-0 21 00:00: 00 Yes 5mg Take 1 tablet by mouth in the morning. [facility] donepeziL 5 mg tablet 3-0 21 00:00: 00 Yes 5mg Take 1 tablet by mouth in the morning. [facility] memantine 5 mg tablet 3-0 21 00:00: 00 Yes 5mg Take 1 tablet by mouth in the morning. [facility] donepeziL 5 mg tablet 3-0 21 00:00: 00 Yes 5mg Take 1 tablet by mouth in the morning. [facility] memantine 5 mg tablet 3-0 21 00:00: 00 Yes 5mg Take 1 tablet by mouth in the morning. [facility] donepeziL 5 mg tablet 3-0 21 00:00: 00 Yes 5mg Take 1 tablet by mouth in the morning. [facility] memantine 5 mg tablet 3-0 4-21 00:00: 00 Yes 5mg Take 1 tablet by mouth in the morning. [facility] donepeziL 5 mg tablet 2023-0 4-21 00:00: 00 Yes 5mg Take 1 tablet by mouth in the morning. [facility] memantine 5 mg tablet 2023-0 4-21 00:00: 00 Yes 5mg Take 1 tablet by mouth in the morning. [facility] donepeziL 5 mg tablet 2023-0 4-21 00:00: 00 Yes 5mg Take 1 tablet by mouth in the morning. [facility] memantine 5 mg tablet 2023-0 4-21 00:00: 00 Yes 5mg Take 1 tablet by mouth in the morning. [facility] donepeziL 5 mg tablet 3-0 4-21 00:00: 00 Yes 5mg Take 1 tablet by mouth in the morning. [facility] memantine 5 mg tablet 2023-0 4-21 00:00: 00 Yes 5mg Take 1 tablet by mouth in the morning. [facility] donepeziL 5 mg tablet 2023-0 4-21 00:00: 00 Yes 5mg Take 1 tablet by mouth in the morning. [facility] memantine 5 mg tablet 2023-0 4-21 00:00: 00 Yes 5mg Take 1 tablet by mouth in the morning. [facility] donepeziL 5 mg tablet 2023-0 4-21 00:00: 00 Yes 5mg Take 1 tablet by mouth in the morning. [facility] memantine 5 mg tablet 2023-0 4-21 00:00: 00 Yes 5mg Take 1 tablet by mouth in the morning. [facility] donepeziL 5 mg tablet 2023-0 4-21 00:00: 00 Yes 5mg Take 1 tablet by mouth in the morning. [facility] memantine 5 mg tablet 2023-0 4-21 00:00: 00 Yes 5mg Take 1 tablet by mouth in the morning. [facility] donepeziL 5 mg tablet 2023-0 4-21 00:00: 00 Yes 5mg Take 1 tablet by mouth in the morning. [facility] memantine 5 mg tablet 2023-0 4-21 00:00: 00 Yes 5mg Take 1 tablet by mouth in the morning. [facility] donepeziL 5 mg tablet 2023-0 4-21 00:00: 00 Yes 5mg Take 1 tablet by mouth in the morning. [facility] memantine 5 mg tablet 2023-0 4-21 00:00: 00 Yes 5mg Take 1 tablet by mouth in the morning. [facility] donepeziL 5 mg tablet 2023-0 4-21 00:00: 00 Yes 5mg Take 1 tablet by mouth in the morning. [facility] memantine 5 mg tablet 3-0 4-21 00:00: 00 Yes 5mg Take 1 tablet by mouth in the morning. [facility] donepeziL 5 mg tablet 3-0 4-21 00:00: 00 Yes 5mg Take 1 tablet by mouth in the morning. [facility] memantine 5 mg tablet 2023-0 4-21 00:00: 00 Yes 5mg Take 1 tablet by mouth in the morning. [facility] donepeziL 5 mg tablet 2023-0 4-21 00:00: 00 Yes 5mg Take 1 tablet by mouth in the morning. [facility] memantine 5 mg tablet 3-0 4-21 00:00: 00 Yes 5mg Take 1 tablet by mouth in the morning. [facility] donepeziL 5 mg tablet 3-0 4-21 00:00: 00 Yes 5mg Take 1 tablet by mouth in the morning. [facility] memantine 5 mg tablet 2023-0 4-21 00:00: 00 Yes 5mg Take 1 tablet by mouth in the morning. [facility] donepeziL 5 mg tablet 2023-0 4-21 00:00: 00 Yes 5mg Take 1 tablet by mouth in the morning. [facility] memantine 5 mg tablet 2023-0 4-21 00:00: 00 Yes 5mg Take 1 tablet by mouth in the morning. [facility] donepeziL 5 mg tablet 2023-0 4-21 00:00: 00 Yes 5mg Take 1 tablet by mouth in the morning. [facility] memantine 5 mg tablet 2023-0 4-21 00:00: 00 Yes 5mg Take 1 tablet by mouth in the morning. [facility] donepeziL 5 mg tablet 2023-0 4-21 00:00: 00 Yes 5mg Take 1 tablet by mouth in the morning. [facility] memantine 5 mg tablet 2023-0 4-21 00:00: 00 Yes 5mg Take 1 tablet by mouth in the morning. [facility] donepeziL 5 mg tablet 2023-0 4-21 00:00: 00 Yes 5mg Take 1 tablet by mouth in the morning. [facility] memantine 5 mg tablet 3-0 4-21 00:00: 00 Yes 5mg Take 1 tablet by mouth in the morning. [facility] donepeziL 5 mg tablet 2023-0 4-21 00:00: 00 Yes 5mg Take 1 tablet by mouth in the morning. [facility] memantine 5 mg tablet 2023-0 4-21 00:00: 00 Yes 5mg Take 1 tablet by mouth in the morning. [facility] donepeziL 5 mg tablet 2023-0 4-21 00:00: 00 Yes 5mg Take 1 tablet by mouth in the morning. [facility] memantine 5 mg tablet 3-0 4-21 00:00: 00 Yes 5mg Take 1 tablet by mouth in the morning. [facility] donepeziL 5 mg tablet 2023-0 4-21 00:00: 00 Yes 5mg Take 1 tablet by mouth in the morning. [facility] memantine 5 mg tablet 2023-0 4-21 00:00: 00 Yes 5mg Take 1 tablet by mouth in the morning. [facility] donepeziL 5 mg tablet 2023-0 4-21 00:00: 00 Yes 5mg Take 1 tablet by mouth in the morning. [facility] memantine 5 mg tablet 2023-0 4-21 00:00: 00 Yes 5mg Take 1 tablet by mouth in the morning. [facility] donepeziL 5 mg tablet 2023-0 4-21 00:00: 00 Yes 5mg Take 1 tablet by mouth in the morning. [facility] memantine 5 mg tablet 3-0 4-21 00:00: 00 Yes 5mg Take 1 tablet by mouth in the morning. [facility] donepeziL 5 mg tablet 3-0 4-21 00:00: 00 Yes 5mg Take 1 tablet by mouth in the morning. [facility] memantine 5 mg tablet 3-0 4-21 00:00: 00 Yes 5mg Take 1 tablet by mouth in the morning. [facility] donepeziL 5 mg tablet 3-0 4-21 00:00: 00 03-01 00:00 :00 No 5mg Take 1 tablet by mouth in the morning. [facility] memantine 5 mg tablet 3-0 4-21 00:00: 00 03-01 00:00 :00 No 5mg Take 1 tablet by mouth in the morning. [facility] donepeziL 5 mg tablet 3-0 4-21 00:00: 00 03-01 00:00 :00 No 5mg Take 1 tablet by mouth in the morning. [facility] memantine 5 mg tablet 2022-0 4-21 00:00: 00 03-01 00:00 :00 No 5mg Take 1 tablet by mouth in the morning. [facility] tamsulosin 0.4 mg 24 hr capsule 3-0 3-27 00:00: 00 01-13 04:59 :00 No [id number] .4mg Take 1 capsule by mouth in the morning for 30 days. [facility] tamsulosin 0.4 mg 24 hr capsule 3-0 3-27 00:00: 00 01-13 04:59 :00 No [id number] .[id number] Take 1 capsule by mouth in the morning for 30 days. [facility] tamsulosin 0.4 mg 24 hr capsule 3-0 3-27 00:00: 00 01-13 04:59 :00 No [id number] .4mg Take 1 capsule by mouth in the morning for 30 days. [facility] tamsulosin 0.4 mg 24 hr capsule 12-13 00:00: 00 01-13 04:59 :00 No [id number] .4mg Take 1 capsule by mouth in the morning for 30 days. [facility] tamsulosin 0.4 mg 24 hr capsule 12-13 00:00: 00 01-13 04:59 :00 No [id number] .4mg Take 1 capsule by mouth in the morning for 30 days. [facility] tamsulosin 0.4 mg 24 hr capsule 12-13 00:00: 00 01-13 04:59 :00 No [id number] .4mg Take 1 capsule by mouth in the morning for 30 days. [facility] donepeziL (ARICEPT) tablet 5 mg 12-12 17:30: 00 Yes 5mg 5 mg, Oral, DAILY, First dose on 12/12/22 at 1230, Until Discontinu ed, Routine [facility] memantine (NAMENDA) tablet 5 mg 12-12 17:30: 00 Yes 5mg 5 mg, Oral, DAILY, First dose on 12/12/22 at 1230, Until Discontinu ed, Routine
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 [facility] rivaroxaban (XARELTO) 15 mg tablet 12-12 14:37: 13 Yes 15mg Take 1 tablet by mouth in the morning. [facility] aspirin 81 mg chewable tablet 12-12 14:37: 13 Yes 81mg Take 81 mg by mouth in the morning. tablet [facility] busPIRone 10 mg tablet 12-12 14:37: 13 Yes 10mg Take 1 tablet by mouth in the morning and 1 tablet in the evening. [facility] rivaroxaban (XARELTO) 15 mg tablet 12-12 14:37: 13 Yes 15mg Take 1 tablet by mouth in the morning. [facility] busPIRone 10 mg tablet 12-12 14:37: 13 Yes 10mg Take 1 tablet by mouth in the morning and 1 tablet in the evening. [facility] rivaroxaban (XARELTO) 15 mg tablet 12-12 14:37: 13 Yes 15mg Take 1 tablet by mouth in the morning. [facility] aspirin 81 mg chewable tablet 12-12 14:37: 13 Yes 81mg Take 81 mg by mouth in the morning. tablet [facility] busPIRone 10 mg tablet 12-12 14:37: 13 Yes 10mg Take 1 tablet by mouth in the morning and 1 tablet in the evening. [facility] rivaroxaban (XARELTO) 15 mg tablet 12-12 14:37: 13 Yes 15mg Take 1 tablet by mouth in the morning. [facility] aspirin 81 mg chewable tablet 12-12 14:37: 13 Yes 81mg Take 81 mg by mouth in the morning. tablet [facility] tamsulosin (FLOMAX) capsule 0.4 mg 12-12 14:00: 00 Yes .4mg 0.4 mg, Oral, DAILY, First dose on 12/12/22 at 0900, Until Discontinu ed, Routine [facility] aspirin EC tablet 81 mg 12-12 14:00: 00 Yes 81mg 81 mg, Oral, DAILY, First dose on 12/12/22 at 0900, Until Discontinu ed, [facility] sod succ (SOLU-MEDRO L) injection 40 mg 12-12 14:00: 00 Yes 40mg 40 mg, Intravenou s, DAILY, First dose (after last modificati on) on 12/12/22 at 0900, Until Discontinu ed, [facility] 12-12 11:47: 13 12-12 00:00 :00 No 25mg Take 1 tablet by mouth in the morning and 1 tablet in the evening. Take with meals. [facility] busPIRone 30 mg tablet 12-12 11:47: 13 12-12 00:00 :00 No 30mg Take 1 tablet by mouth in the morning and 1 tablet in the evening. [facility] KCL 20 mEq tablet 12-12 11:47: 13 12-12 00:00 :00 No Take by mouth 2 (two) times daily. [facility] benazepriL 10 mg tablet 12-12 11:47: 13 12-12 00:00 :00 No 10mg Take 1 tablet by mouth in the morning. [facility] hydroCHLORO thiazide 25 mg tablet 12-12 11:47: 13 12-12 00:00 :00 No 25mg Take 1 tablet by mouth in the morning. [facility] melatonin (MELATIN) tablet 6 mg 12-12 02:00: 00 Yes 6mg 6 mg, Oral, QHS, First dose on 12/11/22 at 2100, Until Discontinu ed, Routine [facility] atorvastati n (LIPITOR) tablet 40 mg 12-12 02:00: 00 Yes 40mg 40 mg, Oral, QHS, First dose on 12/11/22 at 2100, Until Discontinu ed, Routine [facility] carvediloL 3.125 mg tablet 12-12 00:00: 00 01-12 04:59 :00 No [id number] 3.125mg Take 1 tablet by mouth in the morning and 1 tablet in the evening. Take with meals. Do all this for 30 days. [facility] atorvastati n 40 mg tablet 12-12 00:00: 00 01-12 04:59 :00 No [id number] 40mg Take 1 tablet by mouth at bedtime for 30 days. [facility] donepeziL 5 mg tablet 12-12 00:00: 00 01-12 04:59 :00 No [id number] 5mg Take 1 tablet by mouth in the morning for 30 days. [facility] memantine 5 mg tablet 2022-0 3- 00:00: 00 01-12 04:59 :00 No [id number] 5mg Take 1 tablet by mouth in the morning for 30 days. [facility] carvediloL 3.125 mg tablet 2022-0 3 00:00: 00 01-12 04:59 :00 No [id number] 3.125mg Take 1 tablet by mouth in the morning and 1 tablet in the evening. Take with meals. Do all this for 30 days. [facility] atorvastati n 40 mg tablet 2022-0 12-12 00:00: 00 01-12 04:59 :00 No [id number] 40mg Take 1 tablet by mouth at bedtime for 30 days. [facility] donepeziL 5 mg tablet 2022-0 12-12 00:00: 00 01-12 04:59 :00 No [id number] 5mg Take 1 tablet by mouth in the morning for 30 days. [facility] memantine 5 mg tablet 2022-0 12-12 00:00: 00 01-12 04:59 :00 No [id number] 5mg Take 1 tablet by mouth in the morning for 30 days. [facility] carvediloL 3.125 mg tablet 2022-0 12-12 00:00: 00 01-12 04:59 :00 No [id number] 3.125mg Take 1 tablet by mouth in the morning and 1 tablet in the evening. Take with meals. Do all this for 30 days. [facility] atorvastati n 40 mg tablet 2022-0 12-12 00:00: 00 01-12 04:59 :00 No [id number] 40mg Take 1 tablet by mouth at bedtime for 30 days. [facility] donepeziL 5 mg tablet 2022-0 3- 00:00: 00 01-12 04:59 :00 No [id number] 5mg Take 1 tablet by mouth in the morning for 30 days. [facility] memantine 5 mg tablet 12-12 00:00: 00 01-12 04:59 :00 No [id number] 5mg Take 1 tablet by mouth in the morning for 30 days. [facility] carvediloL 3.125 mg tablet 12-12 00:00: 00 01-12 04:59 :00 No [id number] 3.125mg Take 1 tablet by mouth in the morning and 1 tablet in the evening. Take with meals. Do all this for 30 days. [facility] atorvastati n 40 mg tablet 12-12 00:00: 00 01-12 04:59 :00 No [id number] 40mg Take 1 tablet by mouth at bedtime for 30 days. [facility] carvediloL 3.125 mg tablet 12-12 00:00: 00 01-12 04:59 :00 No [id number] 3.125mg Take 1 tablet by mouth in the morning and 1 tablet in the evening. Take with meals. Do all this for 30 days. [facility] atorvastati n 40 mg tablet 12-12 00:00: 00 01-12 04:59 :00 No [id number] 40mg Take 1 tablet by mouth at bedtime for 30 days. [facility] carvediloL 3.125 mg tablet 12-12 00:00: 00 01-12 04:59 :00 No [id number] 3.125mg Take 1 tablet by mouth in the morning and 1 tablet in the evening. Take with meals. Do all this for 30 days. [facility] atorvastati n 40 mg tablet 12-12 00:00: 00 01-12 04:59 :00 No [id number] 40mg Take 1 tablet by mouth at bedtime for 30 days. [facility] donepeziL 5 mg tablet 12-12 00:00: 00 01-07 00:00 :00 No [id number] 5mg Take 1 tablet by mouth in the morning for 30 days. [facility] memantine 5 mg tablet 12-12 00:00: 00 01-07 00:00 :00 No [id number] 5mg Take 1 tablet by mouth in the morning for 30 days. [facility] donepeziL 5 mg tablet 12-12 00:00: 00 01-07 00:00 :00 No [id number] 5mg Take 1 tablet by mouth in the morning for 30 days. [facility] memantine 5 mg tablet 12-12 00:00: 00 01-07 00:00 :00 No [id number] 5mg Take 1 tablet by mouth in the morning for 30 days. [facility] levalbutero l (XOPENEX) nebulizer solution 1.25 mg 12-11 17:00: 00 Yes 1.25mg 1.25 mg, Inhalation , QID, First dose (after last modificati on) on 12/11/22 at 1200, Until Discontinu ed, Routine [facility] rivaroxaban (XARELTO) tablet 15 mg 12-11 14:00: 00 Yes 15mg 15 mg, Oral, DAILY, First dose on 12/11/22 at 0900, Until Discontinu ed, Routine [facility] nicotine (NICODERM) 21 mg/24 hr patch 1 Patch 12-11 13:45: 00 Yes 1{patch } 1 Patch, Topical, Administer over 24 Hours, Q24H, First dose on 12/11/22 at 0845, Until Discontinu ed, Routine [facility] ipratropium (ATROVENT) 0.02 % nebulizer solution 0.5 mg 12-11 13:00: 00 Yes .5mg 0.5 mg, Inhalation , QID, First dose on 12/11/22 at 0800, Until Discontinu ed [facility] carvediloL (COREG) tablet 3.125 mg 12-11 13:00: 00 Yes 3.125mg 3.125 mg, Oral, BID MEALS, First dose on 12/11/22 at 0800, Until Discontinu ed, Routine [facility] busPIRone (BUSPAR) tablet 10 mg 12-11 13:00: 00 Yes 10mg 10 mg, Oral, BID, First dose on Tue12/11/22 at 0800, Until Discontinu ed, Routine [facility] methylpredn isolone sod succ (SOLU-MEDRO L) injection 125 mg 12-11 05:00: 00 12-11 12:35 :32 No 125mg 125 mg, Intravenou s, Q6H, First dose on Tue12/11/22 at 0000, Until Discontinu ed, Routine [facility] NaCl 0.9% (NS) IV infusion 1,000 mL 12-11 03:30: 00 12-11 14:48 :38 No 1000mL at 100 mL/hr, IV Infusion, CONTINUOUS , Starting on Tue12/10/22 at 2230, Until Tue12/11/22 at 0948, Routine [facility] albuterol (VENTOLIN) inhaler 2 Puff 12-11 03:17: 09 Yes 2{puff} 2 Puff, Inhalation , Q4HPRN, Starting on Tue12/10/22 at 2217, Until Discontinu ed, Routine, Wheezing, Shortness of Breath [facility] ondansetron (ZOFRAN (PF)) injection 4 mg 12-11 03:05: 14 Yes 4mg 4 mg, Slow IV Push, Q6HPRN, Starting on Tue12/10/22 at 2205, Until Discontinu ed, Routine, Nausea and Vomiting (N/V) [facility] HYDROcodone -acetaminop hen (NORCO) 10-325 mg tablet 1 tablet 12-11 03:05: 00 Yes 1{tbl} 1 tablet, Oral, Q6HPRN, Starting on Tue12/10/22 at 2205, Until Discontinu ed, Routine, Pain (scale 7-10) [facility] HYDROcodone -acetaminop hen (NORCO 5) 5-325 mg tablet 1 tablet 12-11 03:04: 56 12-13 03:03 :56 No 1{tbl} 1 tablet, Oral, Q6HPRN, Starting on Tue12/10/22 at 2204, Until 12/12/22 at 2203, Routine, Pain (scale 4-6) [facility] acetaminoph en (TYLENOL) tablet 650 mg 12-11 03:04: 50 Yes 650mg 650 mg, Oral, Q6HPRN, Starting on Tue12/10/22 at 2204, Until Discontinu ed, Routine, Pain (scale 1-3) [facility] levalbutero l (XOPENEX) nebulizer solution 1.25 mg 12-11 01:00: 00 12-11 15:57 :00 No 1.25mg 1.25 mg, Inhalation , TID, First dose on Tue12/10/22 at 2000, Until Discontinu ed, Routine [facility] NaCl 0.9% (NS) bolus infusion 1,000 mL 12-11 00:15: 00 12-11 03:18 :00 No 1000mL at 999 mL/hr, 1,000 mL, IV Infusion, ONCE, 1 dose, On Tue12/10/22 at 1915, STAT [facility] ipratropium (ATROVENT) 0.02 % nebulizer solution 0.5 mg 12-10 23:48: 58 Yes .5mg 0.5 mg, Inhalation , Q4HPRN, Starting on Tue12/10/22 at 1848, Until Discontinu ed, Routine, Wheezing, Shortness of Breath [facility] NaCl 0.9% (NS) bolus infusion 500 mL 12-04 16:15: 00 12-04 15:41 :58 No 500mL at 999 mL/hr, 500 mL, IV Piggyback, ONCE, 1 dose, On Tue12/04/22 at 1115, STAT [facility] carvediloL 3.125 mg tablet 12-04 12:44: 03 Yes 3.125mg Take 1 tablet by mouth in the morning and 1 tablet in the evening. Take with meals. [facility] busPIRone 10 mg tablet 12-04 12:44: 03 Yes 10mg Take 1 tablet by mouth in the morning and 1 tablet in the evening. [facility] busPIRone 30 mg tablet 3-0 3-18 12:44: 03 Yes 30mg Take 1 tablet by mouth in the morning and 1 tablet in the evening. [facility] KCL 20 mEq tablet 3-0 3-18 12:44: 03 Yes Take by mouth 2 (two) times daily. [facility] benazepriL 10 mg tablet 3-0 3-18 12:44: 03 Yes 10mg Take 1 tablet by mouth in the morning. [facility] rivaroxaban (XARELTO) 15 mg tablet 3-0 -18 12:44: 03 Yes 15mg Take 1 tablet by mouth in the morning. [facility] carvediloL 3.125 mg tablet 3-0 3-18 12:44: 03 Yes 3.125mg Take 1 tablet by mouth in the morning and 1 tablet in the evening. Take with meals. [facility] busPIRone 10 mg tablet 3-0 -18 12:44: 03 Yes 10mg Take 1 tablet by mouth in the morning and 1 tablet in the evening. [facility] busPIRone 30 mg tablet 3-0 18 12:44: 03 Yes 30mg Take 1 tablet by mouth in the morning and 1 tablet in the evening. [facility] KCL 20 mEq tablet 3-0 18 12:44: 03 Yes Take by mouth 2 (two) times daily. [facility] benazepriL 10 mg tablet 3-0 -18 12:44: 03 Yes 10mg Take 1 tablet by mouth in the morning. [facility] rivaroxaban (XARELTO) 15 mg tablet 3-0 3-18 12:44: 03 Yes 15mg Take 1 tablet by mouth in the morning. [facility] carvediloL 3.125 mg tablet 3-0 3-18 12:44: 03 Yes 3.125mg Take 1 tablet by mouth in the morning and 1 tablet in the evening. Take with meals. [facility] busPIRone 10 mg tablet 2023-0 3-18 12:44: 03 Yes 10mg Take 1 tablet by mouth in the morning and 1 tablet in the evening. [facility] busPIRone 30 mg tablet 12-04 12:44: 03 Yes 30mg Take 1 tablet by mouth in the morning and 1 tablet in the evening. [facility] KCL 20 mEq tablet 12-04 12:44: 03 Yes Take by mouth 2 (two) times daily. [facility] benazepriL 10 mg tablet 12-04 12:44: 03 Yes 10mg Take 1 tablet by mouth in the morning. [facility] rivaroxaban (XARELTO) 15 mg tablet 12-04 12:44: 03 Yes 15mg Take 1 tablet by mouth in the morning. [facility] carvediloL 3.125 mg tablet 12-04 12:44: 03 Yes 3.125mg Take 1 tablet by mouth in the morning and 1 tablet in the evening. Take with meals. [facility] busPIRone 10 mg tablet 12-04 12:44: 03 Yes 10mg Take 1 tablet by mouth in the morning and 1 tablet in the evening. [facility] busPIRone 30 mg tablet 12-04 12:44: 03 Yes 30mg Take 1 tablet by mouth in the morning and 1 tablet in the evening. [facility] KCL 20 mEq tablet 12-04 12:44: 03 Yes Take by mouth 2 (two) times daily. [facility] benazepriL 10 mg tablet 12-04 12:44: 03 Yes 10mg Take 1 tablet by mouth in the morning. [facility] rivaroxaban (XARELTO) 15 mg tablet 12-04 12:44: 03 Yes 15mg Take 1 tablet by mouth in the morning. [facility] albuterol 90 mcg/actuati on inhaler 12-04 00:00: 00 Yes [id number] 2{puff} Inhale 2 Puffs every 6 (six) hours as needed for Wheezing or Shortness of Breath. [facility] albuterol 90 mcg/actuati on inhaler 318 00:00: 00 Yes [id number] 2{puff} Inhale 2 Puffs every 6 (six) hours as needed for Wheezing or Shortness of Breath. [facility] albuterol 90 mcg/actuati on inhaler 3 00:00: 00 Yes [id number] 2{puff} Inhale 2 Puffs every 6 (six) hours as needed for Wheezing or Shortness of Breath. [facility] albuterol 90 mcg/actuati on inhaler 3 00:00: 00 Yes [id number] 2{puff} Inhale 2 Puffs every 6 (six) hours as needed for Wheezing or Shortness of Breath. [facility] albuterol 90 mcg/actuati on inhaler 3 00:00: 00 Yes [id number] 2{puff} Inhale 2 Puffs every 6 (six) hours as needed for Wheezing or Shortness of Breath. [facility] albuterol 90 mcg/actuati on inhaler 3 00:00: 00 Yes [id number] 2{puff} Inhale 2 Puffs every 6 (six) hours as needed for Wheezing or Shortness of Breath. [facility] albuterol 90 mcg/actuati on inhaler 3 00:00: 00 Yes [id number] 2{puff} Inhale 2 Puffs every 6 (six) hours as needed for Wheezing or Shortness of Breath. [facility] albuterol 90 mcg/actuati on inhaler 318 00:00: 00 Yes [id number] 2{puff} Inhale 2 Puffs every 6 (six) hours as needed for Wheezing or Shortness of Breath. [facility] albuterol 90 mcg/actuati on inhaler 318 00:00: 00 Yes [id number] 2{puff} Inhale 2 Puffs every 6 (six) hours as needed for Wheezing or Shortness of Breath. [facility] albuterol 90 mcg/actuati on inhaler 318 00:00: 00 Yes [id number] 2{puff} Inhale 2 Puffs every 6 (six) hours as needed for Wheezing or Shortness of Breath. [facility] albuterol 90 mcg/actuati on inhaler 318 00:00: 00 Yes [id number] 2{puff} Inhale 2 Puffs every 6 (six) hours as needed for Wheezing or Shortness of Breath. [facility] albuterol 90 mcg/actuati on inhaler 18 00:00: 00 Yes [id number] 2{puff} Inhale 2 Puffs every 6 (six) hours as needed for Wheezing or Shortness of Breath. [facility] albuterol 90 mcg/actuati on inhaler 18 00:00: 00 01-19 00:00 :00 No [id number] 2{puff} Inhale 2 Puffs every 6 (six) hours as needed for Wheezing or Shortness of Breath. [facility] tiotropium 18 mcg inhalation 0 318 00:00: 00 01-04 04:59 :00 No [id number] 18ug Inhale 1 capsule in the morning for 30 days. [facility] tiotropium 18 mcg inhalation 2022-0 318 00:00: 00 01-04 04:59 :00 No [id number] 18ug Inhale 1 capsule in the morning for 30 days. [facility] tiotropium 18 mcg inhalation 2022-0 3-18 00:00: 00 01-04 04:59 :00 No [id number] 18ug Inhale 1 capsule in the morning for 30 days. [facility] tiotropium 18 mcg inhalation 2022-0 3-18 00:00: 00 01-04 04:59 :00 No [id number] 18ug Inhale 1 capsule in the morning for 30 days. [facility] tiotropium 18 mcg inhalation 2022-0 3-18 00:00: 00 01-04 04:59 :00 No [id number] 18ug Inhale 1 capsule in the morning for 30 days. [facility] tiotropium 18 mcg inhalation 2022-0 3-18 00:00: 00 01-04 04:59 :00 No [id number] 18ug Inhale 1 capsule in the morning for 30 days. [facility] tiotropium 18 mcg inhalation 2022-0 3-18 00:00: 00 01-04 04:59 :00 No [id number] 18ug Inhale 1 capsule in the morning for 30 days. [facility] tiotropium 18 mcg inhalation 2022-0 3-18 00:00: 00 01-04 04:59 :00 No [id number] 18ug Inhale 1 capsule in the morning for 30 days. [facility] doxycycline hyclate 100 mg capsule 18 00:00: 00 12-10 04:59 :00 No [id number] 100mg Take 1 capsule by mouth every 12 (twelve) hours for 5 days. [facility] predniSONE 20 mg tablet 18 00:00: 00 12-10 04:59 :00 No [id number] 40mg Take 2 tablets by mouth in the morning for 5 days. [facility] doxycycline hyclate 100 mg capsule 18 00:00: 00 12-10 04:59 :00 No [id number] 100mg Take 1 capsule by mouth every 12 (twelve) hours for 5 days. [facility] predniSONE 20 mg tablet 18 00:00: 00 12-10 04:59 :00 No [id number] 40mg Take 2 tablets by mouth in the morning for 5 days. [facility] rivaroxaban (XARELTO) tablet 15 mg 12-03 17:15: 00 Yes 15mg 15 mg, Oral, DAILY, First dose (after last modificati on) on Tue12/03/22 at 1215, Until Discontinu ed, Routine [facility] enoxaparin (LOVENOX) injection 40 mg 16 22:00: 00 12-03 16:06 :59 No 40mg 40 mg, Subcutaneo us, DAILY, First dose on Tue12/02/22 at 1700, Until Discontinu ed, Routine [facility] methylPREDN ISolone sod succ (SOLU-MEDRO L (PF)) injection 40 mg 12-02 19:00: 00 Yes 40mg 40 mg, Intravenou s, Q8H, First dose on Tue12/02/22 at 1400, Until Discontinu ed, 1 mL [facility] codeine-gua ifenesin (ROBITUSSIN AC) 10-100 mg/5 mL oral solution 5 mL 12-02 16:25: 07 Yes 5mL 5 mL, Oral, Q6HPRN, Starting on Tue12/02/22 at 1125, Until Discontinu ed, Routine, Cough [facility] levalbutero l (XOPENEX) nebulizer solution 1.25 mg 12-02 13:00: 00 Yes 1.25mg 1.25 mg, Inhalation , Q4H, First dose on Tue12/02/22 at 0800, Until Discontinu ed, Routine [facility] ipratropium (ATROVENT) 0.02 % nebulizer solution 0.5 mg 12-02 13:00: 00 Yes .5mg 0.5 mg, Inhalation , Q4H, First dose on Tue12/02/22 at 0800, Until Discontinu ed, Routine [facility] doxycycline hyclate (Vibramycin ) capsule 100 mg 12-02 11:45: 00 12-07 11:44 :00 No 100mg 100 mg, Oral, Q12H ABX, 10 doses, First dose on Tue12/02/22 at 0645, Last dose on Tue12/06/22 at 1845, MICHAEL
Re ason for Anti-Infec tive: Empiric Therapy for Suspected Infection< br>Empiric Therapy Site: Respirator y
Durat ion of therapy: 5 days [facility] NaCl 0.9% (NS) IV infusion 1,000 mL 12-02 11:45: 00 12-02 14:24 :54 No 1000mL at 75 mL/hr, IV Infusion, CONTINUOUS , Starting on Tue12/02/22 at 0645, Until Tue12/02/22 at 0924, Routine [facility] famotidine (PEPCID AC) tablet 20 mg 12-02 11:30: 03 Yes 20mg 20 mg, Oral, BIDPRN, Starting on Tue12/02/22 at 0630, Until Discontinu ed, Routine, Indigestio n, Heartburn [facility] ondansetron (ZOFRAN (PF)) injection 4 mg 12-02 11:30: 03 Yes 4mg 4 mg, Slow IV Push, Q6HPRN, Starting on Tue12/02/22 at 0630, Until Discontinu ed, Routine, Nausea and Vomiting (N/V) [facility] bisacodyL (DULCOLAX) tablet 10 mg 12-02 11:30: 03 Yes 10mg 10 mg, Oral, QDAILYPRN, Starting on Tue12/02/22 at 0630, Until Discontinu ed, Routine, Constipati on [facility] acetaminoph en (TYLENOL) tablet 650 mg 12-02 11:30: 03 Yes 650mg 650 mg, Oral, Q6HPRN, Starting on Tue12/02/22 at 0630, Until Discontinu ed, Routine, Pain (scale 1-3) [facility] methylpredn isolone sod succ (SOLU-MEDRO L) injection 125 mg 12-02 06:15: 00 12-02 05:27 :00 No 125mg 125 mg, Intravenou s, ONCE, 1 dose, On Tue12/02/22 at 0115, 2 mL [facility] ipratropium -albuteroL (DUONEB) 0.5 mg-3 mg(2.5 mg base)/3 mL nebulizer solution 6 mL 12-02 06:15: 00 12-02 05:33 :00 No 6mL 6 mL, Inhalation , ONCE, 1 dose, On Tue12/02/22 at 0115, Routine [facility] levalbutero l (XOPENEX) nebulizer solution 0.63 mg 12-01 13:15: 00 12-01 12:38 :00 No .63mg 0.63 mg, Inhalation , ONCE, 1 dose, On Tue12/01/22 at 0815, Routine [facility] ipratropium (ATROVENT) 0.02 % nebulizer solution 0.5 mg 12-01 12:30: 00 12-01 12:38 :00 No .5mg 0.5 mg, Inhalation , ONCE, 1 dose, On Tue12/01/22 at 0730, MICHAEL [facility] levalbutero l (XOPENEX) nebulizer solution 1.25 mg 12-01 11:15: 00 12-01 10:38 :00 No 1.25mg 1.25 mg, Inhalation , ONCE, 1 dose, On Tue12/01/22 at 0615, Routine [facility] ipratropium (ATROVENT) 0.02 % nebulizer solution 0.5 mg 12-01 10:30: 00 12-01 10:38 :00 No .5mg 0.5 mg, Inhalation , ONCE, 1 dose, On Tue12/01/22 at 0530, [facility] methylPREDN ISolone sod succ (SOLU-MEDRO L (PF)) injection 40 mg 12-01 10:30: 00 12-01 10:35 :00 No 40mg 40 mg, Intravenou s, ONCE, 1 dose, On Tue12/01/22 at 0530, [facility] Nebulizer & Compressor For Neb Kami 12-01 00:00: 00 Yes [id number] Use as directed [facility] albuterol 90 mcg/actuati on inhaler 12-01 00:00: 00 Yes [id number] 2{puff} Inhale 2 Puffs every 4 (four) hours as needed for Wheezing or Shortness of Breath. [facility] Nebulizer & Compressor For Neb Kami 3-0 3-15 00:00: 00 Yes [id number] Use as directed [facility] albuterol 90 mcg/actuati on inhaler 2022-0 3-15 00:00: 00 Yes [id number] 2{puff} Inhale 2 Puffs every 4 (four) hours as needed for Wheezing or Shortness of Breath. [facility] Nebulizer & Compressor For Neb Kami 2022-0 3-15 00:00: 00 Yes [id number] Use as directed [facility] albuterol 90 mcg/actuati on inhaler 2022-0 3-15 00:00: 00 Yes [id number] 2{puff} Inhale 2 Puffs every 4 (four) hours as needed for Wheezing or Shortness of Breath. [facility] Nebulizer & Compressor For Neb Kami 2022-0 3-15 00:00: 00 Yes [id number] Use as directed [facility] Nebulizer & Compressor For Neb Kami 2022-0 3-15 00:00: 00 Yes [id number] Use as directed [facility] Nebulizer & Compressor For Neb Kami 2022-0 3-15 00:00: 00 Yes [id number] Use as directed [facility] Nebulizer & Compressor For Neb Kami 2022-0 3-15 00:00: 00 Yes [id number] Use as directed [facility] Nebulizer & Compressor For Neb Kami 2022-0 3-15 00:00: 00 Yes [id number] Use as directed [facility] Nebulizer & Compressor For Neb Kami 2022-0 3-15 00:00: 00 Yes [id number] Use as directed [facility] Nebulizer & Compressor For Neb Kami 2022-0 3-15 00:00: 00 Yes [id number] Use as directed [facility] Nebulizer & Compressor For Neb Kami 3-0 3-15 00:00: 00 Yes [id number] Use as directed [facility] Nebulizer & Compressor For Neb Kami 3-0 3-15 00:00: 00 Yes [id number] Use as directed [facility] Nebulizer & Compressor For Neb Kami 2022-0 3-15 00:00: 00 Yes [id number] Use as directed [facility] Nebulizer & Compressor For Neb Kami 2022-0 3-15 00:00: 00 Yes Use as directed [facility] Nebulizer & Compressor For Neb Kami 2022-0 3-15 00:00: 00 Yes [id number] Use as directed [facility] Nebulizer & Compressor For Neb Kami 2022-0 3-15 00:00: 00 Yes [id number] Use as directed [facility] Nebulizer & Compressor For Neb Kami 2022-0 3-15 00:00: 00 Yes [id number] Use as directed [facility] Nebulizer & Compressor For Neb Kami 2022-0 3-15 00:00: 00 Yes [id number] Use as directed [facility] Nebulizer & Compressor For Neb Kami 2022-0 3-15 00:00: 00 Yes [id number] Use as directed [facility] Nebulizer & Compressor For Neb Kami 2022-0 3-15 00:00: 00 Yes [id number] Use as directed [facility] Nebulizer & Compressor For Neb Kami 2022-0 3-15 00:00: 00 Yes [id number] Use as directed [facility] Nebulizer & Compressor For Neb Kami 2022-0 3-15 00:00: 00 Yes [id number] Use as directed [facility] Nebulizer & Compressor For Neb Kami 2022-0 3-15 00:00: 00 Yes [id number] Use as directed [facility] Nebulizer & Compressor For Neb Kami 2022-0 3-15 00:00: 00 Yes [id number] Use as directed [facility] Nebulizer & Compressor For Neb Kami 2022-0 3-15 00:00: 00 Yes [id number] Use as directed [facility] Nebulizer & Compressor For Neb Kami 2022-0 3-15 00:00: 00 Yes [id number] Use as directed [facility] Nebulizer & Compressor For Neb Kami 2022-0 3-15 00:00: 00 Yes [id number] Use as directed [facility] Nebulizer & Compressor For Neb Kami 2022-0 3-15 00:00: 00 Yes [id number] Use as directed [facility] Nebulizer & Compressor For Neb Kami 2022-0 3-15 00:00: 00 Yes [id number] Use as directed [facility] Nebulizer & Compressor For Neb Kami 2022-0 3-15 00:00: 00 Yes [id number] Use as directed [facility] Nebulizer & Compressor For Neb Kami 2022-0 3-15 00:00: 00 Yes [id number] Use as directed [facility] Nebulizer & Compressor For Neb Kami 2022-0 3-15 00:00: 00 Yes [id number] Use as directed [facility] Nebulizer & Compressor For Neb Kami 2022-0 3-15 00:00: 00 Yes [id number] Use as directed [facility] Nebulizer & Compressor For Neb Kami 2022-0 3-15 00:00: 00 Yes [id number] Use as directed [facility] Nebulizer & Compressor For Neb Kami 2022-0 3-15 00:00: 00 Yes [id number] Use as directed [facility] Nebulizer & Compressor For Neb Kami 2022-0 3-15 00:00: 00 Yes [id number] Use as directed [facility] Nebulizer & Compressor For Neb Kami 2022-0 3-15 00:00: 00 Yes [id number] Use as directed [facility] Nebulizer & Compressor For Neb Kami 3-0 3-15 00:00: 00 Yes [id number] Use as directed [facility] Nebulizer & Compressor For Neb Kami 3-0 3-15 00:00: 00 Yes [id number] Use as directed [facility] Nebulizer & Compressor For Neb Kami 3-0 3-15 00:00: 00 Yes [id number] Use as directed [facility] Nebulizer & Compressor For Neb Kami 2023-0 3-15 00:00: 00 Yes [id number] Use as directed [facility] Nebulizer & Compressor For Neb Kami 0 315 00:00: 00 Yes [id number] Use as directed [facility] Nebulizer & Compressor For Neb Kami 315 00:00: 00 Yes [id number] Use as directed [facility] Nebulizer & Compressor For Neb Kami 3-15 00:00: 00 Yes [id number] Use as directed [facility]/actuati on inhaler 315 00:00: 00 Yes [id number] 2{puff} Inhale 2 Puffs every 4 (four) hours as needed for Wheezing or Shortness of Breath. [facility] predniSONE 50 mg tablet 315 00:00: 00 Yes [id number] 50mg Take 1 tablet by mouth in the morning. [facility] Nebulizer & Compressor For Neb Kami 315 00:00: 00 Yes [id number] Use as directed [facility] albuterol 90 mcg/actuati on inhaler 315 00:00: 00 Yes [id number] 2{puff} Inhale 2 Puffs every 4 (four) hours as needed for Wheezing or Shortness of Breath. [facility] albuterol 90 mcg/actuati on inhaler 15 00:00: 00 12-12 00:00 :00 No [id number] 2{puff} Inhale 2 Puffs every 4 (four) hours as needed for Wheezing or Shortness of Breath. [facility] predniSONE 50 mg tablet 315 00:00: 00 12-04 00:00 :00 No [id number] 50mg Take 1 tablet by mouth in the morning. [facility] omeprazole 40 mg capsule 12 14:11: 21 11-28 00:00 :00 No 40mg Take 40 mg by mouth daily. [facility] 25 mg tablet 11-28 14:: 11-28 00:00 :00 No 25mg Take 25 mg by mouth 2 (two) times daily with meals. [facility] busPIRone 30 mg tablet 11-28 14:: 11-28 00:00 :00 No 30mg Take 30 mg by mouth 2 (two) times daily. [facility] benazepriL 10 mg tablet 11-28 14:: 11-28 00:00 :00 No 10mg Take 10 mg by mouth daily. [facility] hydroCHLORO thiazide 25 mg tablet 11-28 14:: 11-28 00:00 :00 No 25mg Take 25 mg by mouth daily. [facility] levalbutero l (XOPENEX) nebulizer solution 0.63 mg 11-28 13:00: 00 Yes .63mg 0.63 mg, Inhalation , TID, First dose (after last modificati on) on 11/28/22 at 0800, Until Discontinu ed, [facility] ip[facility] (ATROVENT) 0.02 % nebulizer solution 0.5 mg 11-27 20:00: 00 Yes .5mg 0.5 mg, Inhalation , TID, First dose (after last modificati on) on 11/27/22 at 1400, Until Discontinu ed, Rout[facility] nicotine (NICODERM) 21 mg/24 hr patch 1 Patch 11-27 17:30: 00 Yes 1{patch } 1 Patch, Topical, Administer over 24 Hours, Q24H, First dose on 11/27/22 at 1130, Until Discontinu ed, Routine [facility] busPIRone (BUSPAR) tablet 10 mg 11-27 16:15: 00 Yes 10mg 10 mg, Oral, TID, First dose on 11/27/22 at 1015, Until Discontinu ed, [facility] chew[facility] 81 mg 11-27 16:15: 00 Yes 81mg 81 mg, Oral, DAILY, First dose on 11/27/22 at 1015, Until Discontinu ed, Routine [facility] foLIC acid (FOLATE) tablet 1 mg 11-27 15:00: 00 Yes 1mg 1 mg, Oral, DAILY, First dose on Tue11/27/22 at 0900, Until Discontinu ed, Routine [facility] rivaroxaban (XARELTO) tablet 20 mg 11-27 15:00: 00 Yes 20mg 20 mg, Oral, DAILY, First dose on 11/27/22 at 0900, Until Discontinu ed, Routine [facility] omeprazole (PRILOSEC) capsule 40 mg 11-27 15:00: 00 Yes 40mg 40 mg, Oral, DAILY, First dose on Tue11/27/22 at 0900, Until Discontinu ed [facility] predniSONE (DELTASONE) tablet 40 mg 11-27 15:00: 00 12-02 13:59 :00 No 40mg 40 mg, Oral, DAILY, 5 doses, First dose on Tue11/27/22 at 0900, Last dose on Tue12/01/22 at 0900, Routine [facility] carvediloL (COREG) tablet 25 mg 11-27 14:00: 00 Yes 25mg 25 mg, Oral, BID MEALS, First dose on Tue11/27/22 at 0800, Until Discontinu ed, Routine [facility] levalbutero l (XOPENEX) nebulizer solution 0.31 mg 11-27 14:00: 00 11-28 12:33 :58 No .31mg 0.31 mg, Inhalation , TID, First dose on Tue11/27/22 at 0800, Until Discontinu ed, Routine [facility] ipratropium (ATROVENT) 0.02 % nebulizer solution 0.5 mg 11-27 14:00: 00 11-27 18:48 :56 No .5mg 0.5 mg, Inhalation , QID, First dose on Tue11/27/22 at 0800, Until Discontinu ed, Routine [facility] thiamine (VITAMIN B1) tablet 100 mg 11-27 08:30: 00 Yes 100mg 100 mg, Oral, DAILY, First dose (after last modificati on) on Tue11/27/22 at 0230, Until Discontinu ed, Routine [facility] LORazepam (ATIVAN) injection 1 mg 11-27 08:16: 19 Yes 1mg 1 mg, Slow IV Push, Q4HPRN, Starting on Tue11/27/22 at 0216, Until Discontinu ed, Routine, Agitation, Seizures, withdrawl [facility] levalbutero l (XOPENEX) nebulizer solution 1.25 mg 11-19 14:00: 00 Yes 1.25mg 1.25 mg, Inhalation , TID, First dose on Tue11/19/22 at 0800, Until Discontinu ed, Routine [facility] ipratropium (ATROVENT) 0.02 % nebulizer solution 0.5 mg 11-19 09:30: 00 11-19 08:47 :00 No .5mg 0.5 mg, Inhalation , ONCE, 1 dose, On Tue11/19/22 at 0330, Routine [facility] levalbutero l (XOPENEX) nebulizer solution 1.25 mg 11-19 02:00: 00 11-19 01:21 :00 No 1.25mg 1.25 mg, Inhalation , ONCE, 1 dose, On Elizabeth 11/18/22 at 2000, Routine [facility] thiamine 100 mg tablet 224 00:00: 00 12-13 04:59 :00 No [id number] 100mg Take 1 tablet by mouth in the morning for 30 days. [facility] thiamine 100 mg tablet 0 2-24 00:00: 00 12-13 04:59 :00 No [id number] 100mg Take 1 tablet by mouth in the morning for 30 days. [facility] thiamine 100 mg tablet 0 2-24 00:00: 00 12-13 04:59 :00 No [id number] 100mg Take 1 tablet by mouth in the morning for 30 days. [facility] thiamine 100 mg tablet 0 224 00:00: 00 12-13 04:59 :00 No [id number] 100mg Take 1 tablet by mouth in the morning for 30 days. [facility] thiamine 100 mg tablet 0 24 00:00: 00 12-13 04:59 :00 No [id number] 100mg Take 1 tablet by mouth in the morning for 30 days. [facility] thiamine 100 mg tablet 0 24 00:00: 00 11-28 00:00 :00 No [id number] 100mg Take 1 tablet by mouth in the morning for 30 days. [facility] thiamine (VITAMIN B1) tablet 100 mg 11-11 15:00: 00 Yes 100mg 100 mg, Oral, DAILY, First dose on Tue11/11/22 at 0900, Until Discontinu ed, Routine [facility] omeprazole 40 mg capsule 11-11 13:41: 29 Yes 40mg Take 40 mg by mouth daily. [facility] carvediloL 25 mg tablet 11-11 13:41: 29 Yes 25mg Take 25 mg by mouth 2 (two) times daily with meals. [facility] busPIRone 30 mg tablet 11-11 13:41: 29 Yes 30mg Take 30 mg by mouth 2 (two) times daily. [facility] benazepriL 10 mg tablet 11-11 13:41: 29 Yes 10mg Take 10 mg by mouth daily. [facility] hydroCHLORO thiazide 25 mg tablet 11-11 13:41: 29 Yes 25mg Take 25 mg by mouth daily. [facility] omeprazole 40 mg capsule 11-11 13:41: 29 Yes 40mg Take 40 mg by mouth daily. [facility] carvediloL 25 mg tablet 11-11 13:41: 29 Yes 25mg Take 25 mg by mouth 2 (two) times daily with meals. [facility] busPIRone 30 mg tablet 11-11 13:41: 29 Yes 30mg Take 30 mg by mouth 2 (two) times daily. [facility] benazepriL 10 mg tablet 11-11 13:41: 29 Yes 10mg Take 10 mg by mouth daily. [facility] hydroCHLORO thiazide 25 mg tablet 11-11 13:41: 29 Yes 25mg Take 25 mg by mouth daily. [facility] omeprazole 40 mg capsule 11-11 13:41: 29 Yes 40mg Take 40 mg by mouth daily. [facility] carvediloL 25 mg tablet 11-11 13:41: 29 Yes 25mg Take 25 mg by mouth 2 (two) times daily with meals. [facility] busPIRone 30 mg tablet 11-11 13:41: 29 Yes 30mg Take 30 mg by mouth 2 (two) times daily. [facility] benazepriL 10 mg tablet 11-11 13:41: 29 Yes 10mg Take 10 mg by mouth daily. [facility] hydroCHLORO thiazide 25 mg tablet 11-11 13:41: 29 Yes 25mg Take 25 mg by mouth daily. [facility] omeprazole 40 mg capsule 11-11 13:41: 29 Yes 40mg Take 40 mg by mouth daily. [facility] carvediloL 25 mg tablet 11-11 13:41: 29 Yes 25mg Take 25 mg by mouth 2 (two) times daily with meals. [facility] busPIRone 30 mg tablet 11-11 13:41: 29 Yes 30mg Take 30 mg by mouth 2 (two) times daily. [facility] benazepriL 10 mg tablet 11-11 13:41: 29 Yes 10mg Take 10 mg by mouth daily. [facility] hydroCHLORO thiazide 25 mg tablet 11-11 13:41: 29 Yes 25mg Take 25 mg by mouth daily. [facility] omeprazole 40 mg capsule 11-11 13:41: 29 Yes 40mg Take 40 mg by mouth daily. [facility] carvediloL 25 mg tablet 11-11 13:41: 29 Yes 25mg Take 25 mg by mouth 2 (two) times daily with meals. [facility] busPIRone 30 mg tablet 11-11 13:41: 29 Yes 30mg Take 30 mg by mouth 2 (two) times daily. [facility] benazepriL 10 mg tablet 11-11 13:41: 29 Yes 10mg Take 10 mg by mouth daily. [facility] hydroCHLORO thiazide 25 mg tablet 11-11 13:41: 29 Yes 25mg Take 25 mg by mouth daily. [facility] foLIC acid (FOLATE) tablet 1 mg 11-11 00:15: 00 11-11 00:26 :00 No 1mg 1 mg, Oral, ONCE, 1 dose, On Tue11/10/22 at 1815, Routine [facility] benzocaine- menthoL lozenge 11-11 00:00: 00 Yes [id number] 1{lozen ge} Take 1 Lozenge by mouth every 4 (four) hours as needed for Sore throat. [facility] budesonide- formoteroL 80-4.5 mcg/actuati on inhaler 11-11 00:00: 00 Yes [id number] 2{puff} Inhale 2 Puffs in the morning and 2 Puffs in the evening. [facility] benzocaine- menthoL lozenge 11-11 00:00: 00 Yes [id number] 1{lozen ge} Take 1 Lozenge by mouth every 4 (four) hours as needed for Sore throat. [facility] budesonide- formoteroL 80-4.5 mcg/actuati on inhaler 11-11 00:00: 00 Yes [id number] 2{puff} Inhale 2 Puffs in the morning and 2 Puffs in the evening. [facility] benzocaine- menthoL lozenge 11-11 00:00: 00 Yes [id number] 1{lozen ge} Take 1 Lozenge by mouth every 4 (four) hours as needed for Sore throat. [facility] budesonide- formoteroL 80-4.5 mcg/actuati on inhaler 11-11 00:00: 00 Yes [id number] 2{puff} Inhale 2 Puffs in the morning and 2 Puffs in the evening. [facility] benzocaine- menthoL lozenge 11-11 00:00: 00 Yes [id number] 1{lozen ge} Take 1 Lozenge by mouth every 4 (four) hours as needed for Sore throat. [facility] budesonide- formoteroL 80-4.5 mcg/actuati on inhaler 11-11 00:00: 00 Yes [id number] 2{puff} Inhale 2 Puffs in the morning and 2 Puffs in the evening. [facility] benzocaine- menthoL lozenge 11-11 00:00: 00 Yes [id number] 1{lozen ge} Take 1 Lozenge by mouth every 4 (four) hours as needed for Sore throat. [facility] budesonide- formoteroL 80-4.5 mcg/actuati on inhaler 11-11 00:00: 00 Yes [id number] 2{puff} Inhale 2 Puffs in the morning and 2 Puffs in the evening. [facility] benzocaine- menthoL lozenge 11-11 00:00: 00 11-28 00:00 :00 No [id number] 1{lozen ge} Take 1 Lozenge by mouth every 4 (four) hours as needed for Sore throat. [facility] budesonide- formoteroL 80-4.5 mcg/actuati on inhaler 11-11 00:00: 00 11-28 00:00 :00 No [id number] 2{puff} Inhale 2 Puffs in the morning and 2 Puffs in the evening. [facility] sodium chloride 1 gram tablet 2022-0 11-11 00:00: 00 11-22 05:59 :00 No [id number] 1g Take 1 tablet by mouth in the morning and 1 tablet at noon and 1 tablet in the evening. Take with meals. Do all this for 10 days. [facility] sodium chloride 1 gram tablet 0 11-11 00:00: 00 11-22 05:59 :00 No [id number] 1g Take 1 tablet by mouth in the morning and 1 tablet at noon and 1 tablet in the evening. Take with meals. Do all this for 10 days. [facility] sodium chloride 1 gram tablet 11-11 00:00: 00 11-22 05:59 :00 No [id number] 1g Take 1 tablet by mouth in the morning and 1 tablet at noon and 1 tablet in the evening. Take with meals. Do all this for 10 days. [facility] sodium chloride 1 gram tablet 2022-0 11-11 00:00: 00 11-22 05:59 :00 No [id number] 1g Take 1 tablet by mouth in the morning and 1 tablet at noon and 1 tablet in the evening. Take with meals. Do all this for 10 days. [facility] levoFLOXaci n 750 mg tablet 11-11 00:00: 00 11-17 05:59 :00 No [id number] 750mg Take 1 tablet by mouth every 24 (twenty-fo ur) hours for 5 days. [facility] levoFLOXaci n 750 mg tablet 2022-11-11 00:00: 00 11-17 05:59 :00 No [id number] 750mg Take 1 tablet by mouth every 24 (twenty-fo ur) hours for 5 days. [facility] predniSONE 20 mg tablet 2022-0 11-11 00:00: 00 11-15 05:59 :00 No [id number] 40mg Take 2 tablets by mouth in the morning for 3 days. [facility] predniSONE 20 mg tablet 2022-0 11-11 00:00: 11-15 05:59 :00 No [id number] 40mg Take 2 tablets by mouth in the morning for 3 days. [facility] sodium chloride tablet 1 g 11-10 23:15: 00 Yes 1g 1 g, Oral, TID MEALS, First dose on Tue11/10/22 at 1715, Until Discontinu ed, Routine [facility] benzocaine- menthoL (CEPACOL SORE THROAT (JACINTO-MEN)) lozenge 1 Lozenge 11-10 20:49: 25 Yes 1{lozen ge} 1 Lozenge, Oral, Q4HPRN, Starting on Tue11/10/22 at 1449, Until Discontinu ed, Routine, Sore throat [facility] budesonide- formoteroL (SYMBICORT) 80-4.5 mcg/actuati on inhaler 2 Puff 11-10 17:30: 00 Yes 2{puff} 2 Puff, Inhalation , BID, First dose on Tue11/10/22 at 1130, Until Discontinu ed, [facility] (PRILOSEC) capsule 40 mg 11-10 15:00: 00 Yes 40mg 40 mg, Oral, DAILY, First dose on Tue11/10/22 at 0900, Until Discontinu ed [facility] rivaroxaban (XARELTO) tablet 20 mg 11-10 15:00: 00 Yes 20mg 20 mg, Oral, DAILY, First dose on Tue11/10/22 at 0900, Until Discontinu ed, Routine [facility] aspirin chewable tablet 81 mg 11-10 15:00: 00 Yes 81mg 81 mg, Oral, DAILY, First dose on Tue11/10/22 at 0900, Until Discontinu ed, Routine [facility] methylPREDN ISolone sod succ (SOLU-MEDRO L (PF)) injection 40 mg 11-10 15:00: 00 11-14 14:59 :00 No 40mg 40 mg, Intravenou s, DAILY, 4 doses, First dose on Tue11/10/22 at 0900, Last dose on Tue11/13/22 at 0900, 1 mL Univers [facility] NaCl 0.9% (NS) IV infusion 1,000 mL 11-10 09:00: 00 Yes 1000mL at 100 mL/hr, IV Infusion, CONTINUOUS , Starting on Tue11/10/22 at 0300, Until Discontinu ed, Routine [facility] levoFLOXaci n in D5W (LEVAQUIN) [...] Urine
D uration of therapy: 5 days [facility] busPIRone (BUSPAR) tablet 30 mg 11-10 02:00: 00 Yes 30mg 30 mg, Oral, BID, First dose on Tue11/09/22 at 2000, Until Discontinu ed, Routine [facility] carvediloL (COREG) tablet 25 mg 11-09 23:00: 00 Yes 25mg 25 mg, Oral, BID MEALS, First dose on Tue11/09/22 at 1700, Until Discontinu ed, Routine [facility] ipratropium (ATROVENT) 0.02 % nebulizer solution 0.5 mg 11-09 22:00: 00 Yes .5mg 0.5 mg, Inhalation , Q4H, First dose on Tue11/09/22 at 1600, Until Discontinu ed, Routine [facility] albuterol (PROVENTIL) 2.5 mg /3 [...] 1 dose, On Tue11/09/22 at 1415, STAT [facility] ondansetron (ZOFRAN (PF)) injection 4 mg 11-09 20:04: 17 Yes 4mg 4 mg, Slow IV Push, Q6HPRN, Starting on Tue11/09/22 at 1404, Until Discontinu ed, Routine, Nausea and Vomiting (N/V) [facility] acetaminoph en (TYLENOL) tablet 650 mg 11-09 20:04: 07 Yes 650mg 650 mg, Oral, Q6HPRN, Starting on Tue11/09/22 at 1404, Until Discontinu ed, Routine, Pain (scale 1-3), Temp > 38 C [facility] albuterol (PROVENTIL) 2.5 mg /3 mL (0.083 %) nebulizer solution 5 mg 11-09 14:00: 00 11-09 14:05 :00 No 5mg 5 mg, Inhalation , ONCE, 1 dose, On Tue11/09/22 at 0800, STAT [facility] albuterol (PROVENTIL) 2.5 mg /3 mL (0.083 %) nebulizer solution 10 mg 11-09 11:00: 00 11-09 11:04 :00 No 10mg 10 mg, Inhalation , ONCE, 1 dose, On Tue11/09/22 at 0500, STAT [facility] ipratropium (ATROVENT) 0.02 % nebulizer solution 0.5 mg 11-09 09:00: 00 11-09 08:59 :00 No .5mg 0.5 mg, Inhalation , ONCE, 1 dose, On Tue11/09/22 at 0300, MICHAEL [facility] albuterol (PROVENTIL) 2.5 mg /3 mL (0.083 %) nebulizer solution 2.5 mg 11-09 09:00: 00 11-09 08:59 :00 No 2.5mg 2.5 mg, Inhalation , ONCE, 1 dose, On Tue11/09/22 at 0300, STAT [facility] magnesium sulfate in water 2 gram/50 mL (4 %) infusion 2 g 11-09 08:30: 00 11-09 08:22 :00 No 2g 2 g, IV Piggyback, Administer over 60 Minutes, ONCE, 1 dose, On Tue11/09/22 at 0230, Routine [facility] methylPREDN ISolone sodium succinate (SOLU-MEDRO L) injection 125 mg 11-09 07:45: 00 11-09 07:41 :00 No 125mg 125 mg, Intravenou s, ONCE, 1 dose, On Tue11/09/22 at 0145, MICHAEL [facility] ipratropium (ATROVENT) 0.02 % nebulizer solution 0.5 mg 11-09 07:45: 00 11-09 07:40 :00 No .5mg 0.5 mg, Inhalation , ONCE, 1 dose, On Tue11/09/22 at 0145, MICHAEL [facility] albuterol (PROVENTIL) 2.5 mg /3 mL (0.083 %) nebulizer solution 2.5 mg 11-09 07:45: 00 11-09 07:40 :00 No 2.5mg 2.5 mg, Inhalation , ONCE, 1 dose, On Tue11/09/22 at 0145, STAT [facility] cephALEXin (KEFLEX) 500 mg capsule 05-22 00:00: 00 Yes [id number] 500mg Take 1 capsule by mouth 4 (four) times daily. [facility] cephALEXin (KEFLEX) 500 mg capsule 05-22 00:00: 00 Yes [id number] 500mg Take 1 capsule by mouth 4 (four) times daily. [facility] cephALEXin (KEFLEX) 500 mg capsule 05-22 00:00: 00 11-11 00:00 :00 No [id number] 500mg Take 1 capsule by mouth 4 (four) times daily. [facility] cefTRIAXone (ROCEPHIN) 1,000 mg in NaCl 0.9% (NS) 50 mL MINI-BAG 12-12 19:00: 00 12-12 18:23 :00 No 1000mg 1,000 mg, IV Piggyback, ONCE, 1 dose, Tue12/12/20 at 1400, 50 mL
Reas on for Anti-Infec tive: Empiric Therapy for Suspected Infection< br>Empiric Therapy Site: Urine
D uration of therapy: 72 hours [facility] carvediloL 25 mg tablet 12-12 18:38: 04 Yes 25mg Take 25 mg by mouth 2 (two) times daily with meals. [facility] busPIRone 30 mg tablet 12-12 18:38: 04 Yes 30mg Take 30 mg by mouth 2 (two) times daily. [facility] benazepriL 10 mg tablet 12-12 18:38: 04 Yes 10mg Take 10 mg by mouth daily. [facility] hydroCHLORO thiazide 25 mg tablet 12-12 18:38: 04 Yes 25mg Take 25 mg by mouth daily. [facility] carvediloL 25 mg tablet 12-12 18:38: 04 Yes 25mg Take 25 mg by mouth 2 (two) times daily with meals. [facility] busPIRone 30 mg tablet 12-12 18:38: 04 Yes 30mg Take 30 mg by mouth 2 (two) times daily. [facility] benazepriL 10 mg tablet 12-12 18:38: 04 Yes 10mg Take 10 mg by mouth daily. [facility] hydroCHLORO thiazide 25 mg tablet 12-12 18:38: 04 Yes 25mg Take 25 mg by mouth daily. [facility] carvediloL 25 mg tablet 12-12 18:38: 04 Yes 25mg Take 25 mg by mouth 2 (two) times daily with meals. [facility] busPIRone 30 mg tablet 12-12 18:38: 04 Yes 30mg Take 30 mg by mouth 2 (two) times daily. [facility] benazepriL 10 mg tablet 12-12 18:38: 04 Yes 10mg Take 10 mg by mouth daily. [facility] hydroCHLORO thiazide 25 mg tablet 12-12 18:38: 04 Yes 25mg Take 25 mg by mouth daily. [facility] carvediloL 25 mg tablet 12-12 18:38: 04 Yes 25mg Take 25 mg by mouth 2 (two) times daily with meals. [facility] busPIRone 30 mg tablet 12-12 18:38: 04 Yes 30mg Take 30 mg by mouth 2 (two) times daily. [facility] benazepriL 10 mg tablet 12-12 18:38: 04 Yes 10mg Take 10 mg by mouth daily. [facility] hydroCHLORO thiazide 25 mg tablet 12-12 18:38: 04 Yes 25mg Take 25 mg by mouth daily. [facility] carvediloL 25 mg tablet 12-12 18:38: 04 Yes 25mg Take 25 mg by mouth 2 (two) times daily with meals. [facility] busPIRone 30 mg tablet 12-12 18:38: 04 Yes 30mg Take 30 mg by mouth 2 (two) times daily. [facility] benazepriL 10 mg tablet 12-12 18:38: 04 Yes 10mg Take 10 mg by mouth daily. [facility] hydroCHLORO thiazide 25 mg tablet 12-12 18:38: 04 Yes 25mg Take 25 mg by mouth daily. [facility] carvediloL 25 mg tablet 12-12 18:38: 04 Yes 25mg Take 25 mg by mouth 2 (two) times daily with meals. [facility] busPIRone 30 mg tablet 12-12 18:38: 04 Yes 30mg Take 30 mg by mouth 2 (two) times daily. [facility] benazepriL 10 mg tablet 12-12 18:38: 04 Yes 10mg Take 10 mg by mouth daily. [facility] hydroCHLORO thiazide 25 mg tablet 12-12 18:38: 04 Yes 25mg Take 25 mg by mouth daily. [facility] carvediloL 25 mg tablet 12-12 18:38: 04 Yes 25mg Take 25 mg by mouth 2 (two) times daily with meals. [facility] busPIRone 30 mg tablet 12-12 18:38: 04 Yes 30mg Take 30 mg by mouth 2 (two) times daily. [facility] benazepriL 10 mg tablet 12-12 18:38: 04 Yes 10mg Take 10 mg by mouth daily. [facility] hydroCHLORO thiazide 25 mg tablet 12-12 18:38: 04 Yes 25mg Take 25 mg by mouth daily. [facility] carvediloL 25 mg tablet 12-12 18:38: 04 Yes 25mg Take 25 mg by mouth 2 (two) times daily with meals. [facility] busPIRone 30 mg tablet 12-12 18:38: 04 Yes 30mg Take 30 mg by mouth 2 (two) times daily. [facility] benazepriL 10 mg tablet 12-12 18:38: 04 Yes 10mg Take 10 mg by mouth daily. [facility] hydroCHLORO thiazide 25 mg tablet 12-12 18:38: 04 Yes 25mg Take 25 mg by mouth daily. [facility] carvediloL 25 mg tablet 12-12 18:38: 04 Yes 25mg Take 25 mg by mouth 2 (two) times daily with meals. [facility] busPIRone 30 mg tablet 12-12 18:38: 04 Yes 30mg Take 30 mg by mouth 2 (two) times daily. [facility] benazepriL 10 mg tablet 12-12 18:38: 04 Yes 10mg Take 10 mg by mouth daily. [facility] hydroCHLORO thiazide 25 mg tablet 12-12 18:38: 04 Yes 25mg Take 25 mg by mouth daily. [facility] carvediloL 25 mg tablet 12-12 18:38: 04 Yes 25mg Take 25 mg by mouth 2 (two) times daily with meals. [facility] busPIRone 30 mg tablet 12-12 18:38: 04 Yes 30mg Take 30 mg by mouth 2 (two) times daily. [facility] benazepriL 10 mg tablet 12-12 18:38: 04 Yes 10mg Take 10 mg by mouth daily. [facility] hydroCHLORO thiazide 25 mg tablet 12-12 18:38: 04 Yes 25mg Take 25 mg by mouth daily. [facility] carvediloL 25 mg tablet 12-12 18:38: 04 Yes 25mg Take 25 mg by mouth 2 (two) times daily with meals. [facility] busPIRone 30 mg tablet 12-12 18:38: 04 Yes 30mg Take 30 mg by mouth 2 (two) times daily. [facility] benazepriL 10 mg tablet 12-12 18:38: 04 Yes 10mg Take 10 mg by mouth daily. [facility] hydroCHLORO thiazide 25 mg tablet 12-12 18:38: 04 Yes 25mg Take 25 mg by mouth daily. [facility] carvediloL 25 mg tablet 12-12 18:38: 04 Yes 25mg Take 25 mg by mouth 2 (two) times daily with meals. [facility] busPIRone 30 mg tablet 12-12 18:38: 04 Yes 30mg Take 30 mg by mouth 2 (two) times daily. [facility] benazepriL 10 mg tablet 12-12 18:38: 04 Yes 10mg Take 10 mg by mouth daily. [facility] hydroCHLORO thiazide 25 mg tablet 12-12 18:38: 04 Yes 25mg Take 25 mg by mouth daily. [facility] carvediloL 25 mg tablet 12-12 18:38: 04 Yes 25mg Take 25 mg by mouth 2 (two) times daily with meals. [facility] busPIRone 30 mg tablet 12-12 18:38: 04 Yes 30mg Take 30 mg by mouth 2 (two) times daily. [facility] benazepriL 10 mg tablet 12-12 18:38: 04 Yes 10mg Take 10 mg by mouth daily. [facility] hydroCHLORO thiazide 25 mg tablet 12-12 18:38: 04 Yes 25mg Take 25 mg by mouth daily. [facility] carvediloL 25 mg tablet 12-12 18:38: 04 Yes 25mg Take 25 mg by mouth 2 (two) times daily with meals. [facility] busPIRone 30 mg tablet 12-12 18:38: 04 Yes 30mg Take 30 mg by mouth 2 (two) times daily. [facility] benazepriL 10 mg tablet 12-12 18:38: 04 Yes 10mg Take 10 mg by mouth daily. [facility] hydroCHLORO thiazide 25 mg tablet 12-12 18:38: 04 Yes 25mg Take 25 mg by mouth daily. [facility] carvediloL 25 mg tablet 12-12 18:38: 04 Yes 25mg Take 25 mg by mouth 2 (two) times daily with meals. [facility] busPIRone 30 mg tablet 12-12 18:38: 04 Yes 30mg Take 30 mg by mouth 2 (two) times daily. [facility] benazepriL 10 mg tablet 12-12 18:38: 04 Yes 10mg Take 10 mg by mouth daily. [facility] hydroCHLORO thiazide 25 mg tablet 12-12 18:38: 04 Yes 25mg Take 25 mg by mouth daily. [facility] iohexol (OMNIPAQUE 350 BULK-150 mL) injection 120 mL 12-12 17:30: 00 12-12 17:21 :00 No [id number] 120mL 120 mL, Intravenou s, ONCE, 1 dose, Tue12/12/20 at 1230, Routine [facility] aspirin 81 mg EC tablet 12-12 16:57: 40 12-12 00:00 :00 No 81mg Take 81 mg by mouth daily. [facility] varenicline (CHANTIX) 1 mg tablet 12-12 16:57: 18 12-12 00:00 :00 No 1mg Take 1 mg by mouth 2 (two) times daily. [facility] predniSONE 20 mg tablet 12-12 16:57: 12 12-12 00:00 :00 No 20mg Take 20 mg by mouth daily. [facility] fluticasone -umeclidin- vilanter (TRELEGY ELLIPTA) 100-62.5-25 mcg DsDv 12-12 16:56: 46 12-12 00:00 :00 No 1{puff} Inhale 1 Puff daily. [facility] cefpodoxime 100 mg tablet 12-12 00:00: 00 Yes [id number] 100mg Take 1 tablet by mouth 2 (two) times daily. [facility] cefpodoxime 100 mg tablet 12-12 00:00: 00 Yes [id number] 100mg Take 1 tablet by mouth 2 (two) times daily. [facility] cefpodoxime 100 mg tablet 12-12 00:00: 00 Yes [id number] 100mg Take 1 tablet by mouth 2 (two) times daily. [facility] cefpodoxime 100 mg tablet 12-12 00:00: 00 Yes [id number] 100mg Take 1 tablet by mouth 2 (two) times daily. [facility] cefpodoxime 100 mg tablet 12-12 00:00: 00 Yes [id number] 100mg Take 1 tablet by mouth 2 (two) times daily. [facility] cefpodoxime 100 mg tablet 2020-0 12-12 00:00: 00 Yes [id number] 100mg Take 1 tablet by mouth 2 (two) times daily. [facility] cefpodoxime 100 mg tablet 2020-0 12-12 00:00: 00 Yes [id number] 100mg Take 1 tablet by mouth 2 (two) times daily. [facility] cefpodoxime 100 mg tablet 2020-0 12-12 00:00: 00 Yes [id number] 100mg Take 1 tablet by mouth 2 (two) times daily. [facility] cefpodoxime 100 mg tablet 2020-0 12-12 00:00: 00 Yes [id number] 100mg Take 1 tablet by mouth 2 (two) times daily. [facility] cefpodoxime 100 mg tablet 2020-0 12-12 00:00: 00 Yes [id number] 100mg Take 1 tablet by mouth 2 (two) times daily. [facility] cefpodoxime 100 mg tablet 2020-0 12-12 00:00: 00 Yes [id number] 100mg Take 1 tablet by mouth 2 (two) times daily. [facility] cefpodoxime 100 mg tablet 2020-0 12-12 00:00: 00 Yes [id number] 100mg Take 1 tablet by mouth 2 (two) times daily. [facility] cefpodoxime 100 mg tablet 2020-0 12-12 00:00: 00 Yes [id number] 100mg Take 1 tablet by mouth 2 (two) times daily. [facility] cefpodoxime 100 mg tablet 2020-0 12-12 00:00: 00 Yes [id number] 100mg Take 1 tablet by mouth 2 (two) times daily. [facility] cefpodoxime 100 mg tablet 2020-0 12-12 00:00: 00 Yes [id number] 100mg Take 1 tablet by mouth 2 (two) times daily. [facility] cefpodoxime 100 mg tablet 2020-0 12-12 00:00: 00 20211-11 00:00 :00 No [id number] 100mg Take 1 tablet by mouth 2 (two) times daily[facility] cefpodoxime 100 mg tablet 12-12 00:00: 00 12-12 00:00 :00 No [id number] 100mg Take 1 tablet by mouth 2 (two) times daily for 7 days. [facility] XARELTO 15 mg tablet 10-16 00:00: 00 Yes [facility] XARELTO 15 mg tablet 10-16 00:00: 00 Yes [facility] XARELTO 15 mg tablet 10-16 00:00: 00 Yes [facility] XARELTO 15 mg tablet 10-16 00:00: 00 Yes [facility] XARELTO 15 mg tablet 10-16 00:00: 00 Yes [facility] XARELTO 15 mg tablet 10-16 00:00: 00 Yes [facility] XARELTO 15 mg tablet 10-16 00:00: 00 Yes [facility] XARELTO 15 mg tablet 10-16 00:00: 00 Yes [facility] XARELTO 15 mg tablet 10-16 00:00: 00 Yes [facility] XARELTO 15 mg tablet 10-16 00:00: 00 Yes [facility] XARELTO 15 mg tablet 10-16 00:00: 00 Yes [facility] XARELTO 15 mg tablet 10-16 00:00: 00 Yes [facility] XARELTO 15 mg tablet 10-16 00:00: 00 Yes [facility] XARELTO 15 mg tablet 10-16 00:00: 00 Yes [facility] XARELTO 15 mg tablet 10-16 00:00: 00 Yes [facility] XARELTO 15 mg tablet 10-16 00:00: 00 Yes [facility] XARELTO 15 mg tablet 10-16 00:00: 00 Yes [facility] XARELTO 15 mg tablet 10-16 00:00: 00 Yes [facility] XARELTO 15 mg tablet 10-16 00:00: 00 Yes [facility] XARELTO 15 mg tablet 10-16 00:00: 00 Yes [facility] XARELTO 15 mg tablet 10-16 00:00: 00 Yes [facility] XARELTO 15 mg tablet 10-16 00:00: 00 Yes [facility] XARELTO 15 mg tablet 10-16 00:00: 00 Yes [facility] XARELTO 15 mg tablet 10-16 00:00: 00 11-28 00:00 :00 No [facility] omeprazole 40 mg capsule 2018-09 00:11: 42 Yes 40mg Take 40 mg by mouth daily. [facility] omeprazole 40 mg capsule 2018-09 00:11: 42 Yes 40mg Take 40 mg by mouth daily. [facility] varenicline (CHANTIX) 1 mg tablet 2018-09 00:11: 42 Yes 1mg Take 1 mg by mouth 2 (two) times daily. [facility] predniSONE 20 mg tablet 2018-09 00:11: 42 Yes 20mg Take 20 mg by mouth daily. [facility] omeprazole 40 mg capsule 2018-09 00:11: 42 Yes 40mg Take 40 mg by mouth daily. [facility] fluticasone -umeclidin- vilanter (TRELEGY ELLIPTA) 100-62.5-25 mcg DsDv 2018-09 00:11: 42 Yes 1{puff} Inhale 1 Puff daily. [facility] aspirin 81 mg EC tablet 2018-09 00:11: 42 Yes 81mg Take 81 mg by mouth daily. [facility] varenicline (CHANTIX) 1 mg tablet 2018-09 00:11: 42 Yes 1mg Take 1 mg by mouth 2 (two) times daily. [facility] predniSONE 20 mg tablet 2018-09 00:11: 42 Yes 20mg Take 20 mg by mouth daily. [facility] omeprazole 40 mg capsule 2018-09 00:11: 42 Yes 40mg Take 40 mg by mouth daily. [facility] fluticasone -umeclidin- vilanter (TRELEGY ELLIPTA) 100-62.5-25 mcg DsDv 2018-09 00:11: 42 Yes 1{puff} Inhale 1 Puff daily. [facility] aspirin 81 mg EC tablet 2018-09 00:11: 42 Yes 81mg Take 81 mg by mouth daily. [facility] varenicline (CHANTIX) 1 mg tablet 2018-09 00:11: 42 Yes 1mg Take 1 mg by mouth 2 (two) times daily. [facility] predniSONE 20 mg tablet 2018-09 00:11: 42 Yes 20mg Take 20 mg by mouth daily. [facility] omeprazole 40 mg capsule 2018-09 00:11: 42 Yes 40mg Take 40 mg by mouth daily. [facility] fluticasone -umeclidin- vilanter (TRELEGY ELLIPTA) 100-62.5-25 mcg DsDv 2018-09 00:11: 42 Yes 1{puff} Inhale 1 Puff daily. [facility] aspirin 81 mg EC tablet 2018-09 00:11: 42 Yes 81mg Take 81 mg by mouth daily. [facility] varenicline (CHANTIX) 1 mg tablet 2018-09 00:11: 42 Yes 1mg Take 1 mg by mouth 2 (two) times daily. [facility] predniSONE 20 mg tablet 2018-09 00:11: 42 Yes 20mg Take 20 mg by mouth daily. [facility] omeprazole 40 mg capsule 2018-09 00:11: 42 Yes 40mg Take 40 mg by mouth daily. [facility] fluticasone -umeclidin- vilanter (TRELEGY ELLIPTA) 100-62.5-25 mcg DsDv 2018-09 00:11: 42 Yes 1{puff} Inhale 1 Puff daily. [facility] aspirin 81 mg EC tablet 2018-09 00:11: 42 Yes 81mg Take 81 mg by mouth daily. [facility] varenicline (CHANTIX) 1 mg tablet 2018-09 00:11: 42 Yes 1mg Take 1 mg by mouth 2 (two) times daily. [facility] predniSONE 20 mg tablet 2018-09 00:11: 42 Yes 20mg Take 20 mg by mouth daily. [facility] omeprazole 40 mg capsule 2018-09 00:11: 42 Yes 40mg Take 40 mg by mouth daily. [facility] fluticasone -umeclidin- vilanter (TRELEGY ELLIPTA) 100-62.5-25 mcg DsDv 2018-09 00:11: 42 Yes 1{puff} Inhale 1 Puff daily. [facility] aspirin 81 mg EC tablet 2018-09 00:11: 42 Yes 81mg Take 81 mg by mouth daily. [facility] varenicline (CHANTIX) 1 mg tablet 2018-09 00:11: 42 Yes 1mg Take 1 mg by mouth 2 (two) times daily. [facility] predniSONE 20 mg tablet 2018-09 00:11: 42 Yes 20mg Take 20 mg by mouth daily. [facility] omeprazole 40 mg capsule 2018-09 00:11: 42 Yes 40mg Take 40 mg by mouth daily. [facility] fluticasone -umeclidin- vilanter (TRELEGY ELLIPTA) 100-62.5-25 mcg DsDv 2018-09 00:11: 42 Yes 1{puff} Inhale 1 Puff daily. [facility] aspirin 81 mg EC tablet 2018-09 00:11: 42 Yes 81mg Take 81 mg by mouth daily. [facility] omeprazole 40 mg capsule 2018-09 00:11: 42 Yes 40mg Take 40 mg by mouth daily. [facility] omeprazole 40 mg capsule 2018-09 00:11: 42 Yes 40mg Take 40 mg by mouth daily. [facility] omeprazole 40 mg capsule 2018-09 00:11: 42 Yes 40mg Take 40 mg by mouth daily. [facility] omeprazole 40 mg capsule 2018-09 00:11: 42 Yes 40mg Take 40 mg by mouth daily. [facility] omeprazole 40 mg capsule 2018-09 00:11: 42 Yes 40mg Take 40 mg by mouth daily. [facility] omeprazole 40 mg capsule 2018-09 00:11: 42 Yes 40mg Take 40 mg by mouth daily. [facility] omeprazole 40 mg capsule 2018-09 00:11: 42 Yes 40mg Take 40 mg by mouth daily. [facility] omeprazole 40 mg capsule 2018-09 00:11: 42 Yes 40mg Take 40 mg by mouth daily. [facility] omeprazole 40 mg capsule 2018-09 00:11: 42 Yes 40mg Take 40 mg by mouth daily. [facility] omeprazole 40 mg capsule 2018-09 00:11: 42 Yes 40mg Take 40 mg by mouth daily. [facility] omeprazole 40 mg capsule 2018-09 00:11: 42 Yes 40mg Take 40 mg by mouth daily. [facility] omeprazole 40 mg capsule 2018-09 00:11: 42 Yes 40mg Take 40 mg by mouth daily. [facility] omeprazole 40 mg capsule 2018-09 00:11: 42 Yes 40mg Take 40 mg by mouth daily. [facility] KCL 20 mEq tablet 2018-09 00:00: 00 Yes [id number] 40meq Take 2 tablets by mouth daily. [facility] KCL 20 mEq tablet 2018-09 00:00: 00 Yes [id number] 40meq Take 2 tablets by mouth daily. [facility] atorvastati n 20 mg tablet 2018-09 00:00: 00 Yes [id number] 20mg Take 1 tablet by mouth at bedtime. [facility] metoprolol succinate XL 50 mg 24 hr tablet 2018-09 00:00: 00 Yes [id number] 50mg Take 1 tablet by mouth 2 (two) times daily. [facility] furosemide 40 mg tablet 2018-09 00:00: 00 Yes [id number] 40mg Take 1 tablet by mouth every morning and evening. [facility] KCL 20 mEq tablet 2018-09 00:00: 00 Yes [id number] 40meq Take 2 tablets by mouth daily. [facility] atorvastati n 20 mg tablet 2018-09 00:00: 00 Yes [id number] 20mg Take 1 tablet by mouth at bedtime. [facility] metoprolol succinate XL 50 mg 24 hr tablet 2018-09 00:00: 00 Yes [id number] 50mg Take 1 tablet by mouth 2 (two) times daily. [facility] furosemide 40 mg tablet 2018-09 00:00: 00 Yes [id number] 40mg Take 1 tablet by mouth every morning and evening. [facility] KCL 20 mEq tablet 2018-09 00:00: 00 Yes [id number] 40meq Take 2 tablets by mouth daily. [facility] atorvastati n 20 mg tablet 2018-09 00:00: 00 Yes [id number] 20mg Take 1 tablet by mouth at bedtime. [facility] metoprolol succinate XL 50 mg 24 hr tablet 2018-09 00:00: 00 Yes [id number] 50mg Take 1 tablet by mouth 2 (two) times daily. [facility] furosemide 40 mg tablet 2018-09 00:00: 00 Yes [id number] 40mg Take 1 tablet by mouth every morning and evening. [facility] KCL 20 mEq tablet 2018-09 00:00: 00 Yes [id number] 40meq Take 2 tablets by mouth daily. [facility] atorvastati n 20 mg tablet 2018-09 00:00: 00 Yes [id number] 20mg Take 1 tablet by mouth at bedtime. [facility] metoprolol succinate XL 50 mg 24 hr tablet 2018-09 00:00: 00 Yes [id number] 50mg Take 1 tablet by mouth 2 (two) times daily. [facility] furosemide 40 mg tablet 2018-09 00:00: 00 Yes [id number] 40mg Take 1 tablet by mouth every morning and evening. [facility] KCL 20 mEq tablet 2018-09 00:00: 00 Yes [id number] 40meq Take 2 tablets by mouth daily. [facility] atorvastati n 20 mg tablet 2018-09 00:00: 00 Yes [id number] 20mg Take 1 tablet by mouth at bedtime. [facility] metoprolol succinate XL 50 mg 24 hr tablet 2018-09 00:00: 00 Yes [id number] 50mg Take 1 tablet by mouth 2 (two) times daily. [facility] furosemide 40 mg tablet 2018-09 00:00: 00 Yes [id number] 40mg Take 1 tablet by mouth every morning and evening. [facility] KCL 20 mEq tablet 2018-09 00:00: 00 Yes [id number] 40meq Take 2 tablets by mouth daily. [facility] atorvastati n 20 mg tablet 2018-09 00:00: 00 Yes [id number] 20mg Take 1 tablet by mouth at bedtime. [facility] metoprolol succinate XL 50 mg 24 hr tablet 2018-09 00:00: 00 Yes [id number] 50mg Take 1 tablet by mouth 2 (two) times daily. [facility] furosemide 40 mg tablet 2018-09 00:00: 00 Yes [id number] 40mg Take 1 tablet by mouth every morning and evening. [facility] KCL 20 mEq tablet 2018-09 00:00: 00 Yes [id number] 40meq Take 2 tablets by mouth daily. [facility] KCL 20 mEq tablet 2018-09 00:00: 00 Yes [id number] 40meq Take 2 tablets by mouth daily. [facility] 2018-09 00:00: 00 Yes [id number] 40meq Take 2 tablets by mouth daily. [facility] KCL 20 mEq tablet 2018-09 00:00: 00 Yes [id number] 40meq Take 2 tablets by mouth daily. [facility] KCL 20 mEq tablet 2018-09 00:00: 00 Yes [id number] 40meq Take 2 tablets by mouth daily. [facility] KCL 20 mEq tablet 2018-09 00:00: 00 Yes [id number] 40meq Take 2 tablets by mouth daily. [facility] KCL 20 mEq tablet 2018-09 00:00: 00 Yes [id number] 40meq Take 2 tablets by mouth daily. [facility] KCL 20 mEq tablet 2018-09 00:00: 00 Yes [id number] 40meq Take 2 tablets by mouth daily. [facility] KCL 20 mEq tablet 2018-09 00:00: 00 Yes [id number] 40meq Take 2 tablets by mouth daily. [facility] KCL 20 mEq tablet 2018-09 00:00: 00 Yes [id number] 40meq Take 2 tablets by mouth daily. [facility] KCL 20 mEq tablet 2018-09 00:00: 00 Yes [id number] 40meq Take 2 tablets by mouth daily. [facility] KCL 20 mEq tablet 2018-09 00:00: 00 Yes [id number] 40meq Take 2 tablets by mouth daily. [facility] KCL 20 mEq tablet 2018-09 00:00: 00 Yes [id number] 40meq Take 2 tablets by mouth daily. [facility] KCL 20 mEq tablet 2018-09 00:00: 00 Yes [id number] 40meq Take 2 tablets by mouth daily. [facility] KCL 20 mEq tablet 2018-09 00:00: 00 Yes [id number] 40meq Take 2 tablets by mouth daily. [facility] KCL 20 mEq tablet 2018-09 00:00: 00 Yes [id number] 40meq Take 2 tablets by mouth daily. [facility] KCL 20 mEq tablet 2018-09 00:00: 00 Yes [id number] 40meq Take 2 tablets by mouth daily. [facility] KCL 20 mEq tablet 2018-09 00:00: 00 Yes [id number] 40meq Take 2 tablets by mouth daily. [facility] KCL 20 mEq tablet 2018-09 00:00: 00 Yes [id number] 40meq Take 2 tablets by mouth daily. [facility] KCL 20 mEq tablet 2018-09 00:00: 00 11-28 00:00 :00 No [id number] 40meq Take 2 tablets by mouth daily. [facility] atorvastati n 20 mg tablet 2018-09 00:00: 00 12-12 00:00 :00 No [id number] 20mg Take 1 tablet by mouth at bedtime. [facility] metoprolol succinate XL 50 mg 24 hr tablet 2018-09 00:00: 00 12-12 00:00 :00 No [id number] 50mg Take 1 tablet by mouth 2 (two) times daily. [facility] furosemide 40 mg tablet 2018-09 00:00: 00 12-12 00:00 :00 No [id number] 40mg Take 1 tablet by mouth every morning and evening. [facility] ipratropium -albuterol (DUONEB) 0.5 mg-3 mg(2.5 mg base)/3 mL nebulizer solution 3 mL 05-04 13:00: 00 Yes 3mL 3 mL, Inhalation , QID, First dose on Tue05/04/19 at 0800, Until Discontinu ed, Routine [facility] ibuprofen 600 mg tablet 02-16 00:00: 00 Yes [id number] 600mg Take 1 tablet by mouth every 8 (eight) hours as needed (PAIN). [facility] ibuprofen 600 mg tablet 02-16 00:00: 00 Yes [id number] 600mg Take 1 tablet by mouth every 8 (eight) hours as needed (pain). [facility] ibuprofen 600 mg tablet 02-16 00:00: 00 05-03 00:00 :00 No [id number] 600mg Take 1 tablet by mouth every 8 (eight) hours as needed (PAIN). [facility] ibuprofen 600 mg tablet 02-16 00:00: 05-03 00:00 :00 No [id number] 600mg Take 1 tablet by mouth every 8 (eight) hours as needed (pain). [facility] magnesium oxide (MAG-OX 400) 400 mg tablet 11-11 00:00: 00 Yes 400mg Take 1 Tab by mouth 3 (three) times daily. [facility] enalapril (VASOTEC) 2.5 mg tablet 11-11 00:00: 00 Yes [id number] 2.5mg Take 1 Tab by mouth 2 (two) times daily. [facility] pantoprazol e (PROTONIX) 40 mg EC tablet 11-11 00:00: 00 Yes 40mg Take 1 Tab by mouth daily. [facility] KCL (KLOR-CON M20) 20 mEq tablet 11-11 00:00: 00 Yes 20meq Take 1 Tab by mouth daily. [facility] furosemide (LASIX) 40 mg tablet 11-11 00:00: 00 Yes [id number] 40mg Take 1 Tab by mouth 2 (two) times daily. [facility] metoprolol succinate XL (TOPROL XL) 100 mg 24 hr tablet 11-11 00:00: 00 Yes 100mg Take 1 Tab by mouth daily. [facility] magnesium oxide (MAG-OX 400) 400 mg tablet 11-11 00:00: 00 05-03 00:00 :00 No 400mg Take 1 Tab by mouth 3 (three) times daily. [facility] enalapril (VASOTEC) 2.5 mg tablet 11-11 00:00: 05-03 00:00 :00 No [id number] 2.5mg Take 1 Tab by mouth 2 (two) times daily. [facility] pantoprazol e (PROTONIX) 40 mg EC tablet 11-11 00:00: 00 05-03 00:00 :00 No 40mg Take 1 Tab by mouth daily. [facility] KCL (KLOR-CON M20) 20 mEq tablet 11-11 00:00: 00 05-03 00:00 :00 No 20meq Take 1 Tab by mouth daily. [facility] furosemide (LASIX) 40 mg tablet 11-11 00:00: 00 05-03 00:00 :00 No [id number] 40mg Take 1 Tab by mouth 2 (two) times daily. [facility] metoprolol succinate XL (TOPROL XL) 100 mg 24 hr tablet 11-11 00:00: 00 05-03 00:00 :00 No 100mg Take 1 Tab by mouth daily. [facility] aspirin 81 mg chewable tablet 2013-09 00:00: 00 Yes 81mg Take 1 Tab by mouth daily. [facility] ipratropium (ATROVENT) 0.02 % nebulizer solution 2013-09 00:00: 00 Yes .5mg Inhale 2.5 mL 4 (four) times daily. [facility] levalbutero l (XOPENEX) 0.31 mg/3 mL nebulizer solution 2013-09 00:00: 00 Yes .31mg Inhale 0.31 mg 3 (three) times daily. [facility] aspirin 81 mg chewable tablet 2013-09 00:00: 00 Yes 81mg Take 1 Tab by mouth daily. [facility] ipratropium (ATROVENT) 0.02 % nebulizer solution 2013-09 00:00: 00 Yes .5mg Inhale 2.5 mL 4 (four) times daily. [facility] levalbutero l (XOPENEX) 0.31 mg/3 mL nebulizer solution 2013-09 00:00: 00 Yes .31mg Inhale 0.31 mg 3 (three) times daily. [facility] aspirin 81 mg chewable tablet 2013-09 00:00: 00 Yes 81mg Take 1 Tab by mouth daily. [facility] ipratropium (ATROVENT) 0.02 % nebulizer solution 2013-09 00:00: 00 Yes .5mg Inhale 2.5 mL 4 (four) times daily. [facility] levalbutero l (XOPENEX) 0.31 mg/3 mL nebulizer solution 2013-09 00:00: 00 Yes .31mg Inhale 0.31 mg 3 (three) times daily. [facility] aspirin 81 mg chewable tablet 2013-09 00:00: 00 Yes 81mg Take 1 Tab by mouth daily. [facility]) 0.02 % nebulizer solution 2013-09 00:00: 00 Yes .5mg Inhale 2.5 mL 4 (four) times daily. [facility] levalbutero l (XOPENEX) 0.31 mg/3 mL nebulizer solution 2013-09 00:00: 00 Yes .31mg Inhale 0.31 mg 3 (three) times daily. [facility] aspirin 81 mg chewable tablet 2013-09 00:00: 00 Yes 81mg Take 1 Tab by mouth daily. [facility] ipratropium (ATROVENT) 0.02 % nebulizer solution 2013-09 00:00: 00 Yes .5mg Inhale 2.5 mL 4 (four) times daily. [facility] levalbutero l (XOPENEX) 0.31 mg/3 mL nebulizer solution 2013-09 00:00: 00 Yes .31mg Inhale 0.31 mg 3 (three) times daily. [facility] aspirin 81 mg chewable tablet 2013-09 00:00: 00 Yes 81mg Take 1 Tab by mouth daily. [facility] ipratropium (ATROVENT) 0.02 % nebulizer solution 2013-09 00:00: 00 Yes .5mg Inhale 2.5 mL 4 (four) times daily. [facility] levalbutero l (XOPENEX) 0.31 mg/3 mL nebulizer solution 2013-09 00:00: 00 Yes .31mg Inhale 0.31 mg 3 (three) times daily. [facility] 81 mg chewable tablet 2013-09 00:00: 00 Yes 81mg Take 1 Tab by mouth daily. [facility] ipratropium (ATROVENT) 0.02 % nebulizer solution 2013-09 00:00: 00 Yes .5mg Inhale 2.5 mL 4 (four) times daily. [facility] levalbutero [facility] (XOPENEX) 0.31 mg/3 mL nebulizer solution 2013-09 00:00: 00 Yes .31mg Inhale 0.31 mg 3 (three) times daily. [facility] aspirin 81 mg chewable tablet 2013-09 00:00: 00 Yes 81mg Take 1 Tab by mouth daily. [facility] ipratropium (ATROVENT) 0.02 % nebulizer solution 2013-09 00:00: 00 Yes .5mg Inhale 2.5 mL 4 (four) times daily. [facility] levalbutero l (XOPENEX) 0.31 mg/3 mL nebulizer solution 2013-09 00:00: 00 Yes .31mg Inhale 0.31 mg 3 (three) times daily. [facility] aspirin 81 mg chewable tablet 2013-09 00:00: 00 Yes 81mg Take 1 Tab by mouth daily. [facility] ipratropium (ATROVENT) 0.02 % nebulizer solution 2013-09 00:00: 00 Yes .5mg Inhale 2.5 mL 4 (four) times daily. [facility] leval[facility] (XOPENEX) 0.31 mg/3 mL nebulizer solution 2013-09 00:00: 00 Yes .31mg Inhale 0.31 mg 3 (three) times daily. [facility] aspirin 81 mg chewable tablet 2013-09 00:00: 00 Yes 81mg Take 1 Tab by mouth daily. [facility] ipratropium (ATROVENT) 0.02 % nebulizer solution 2013-09 00:00: 00 Yes .5mg Inhale 2.5 mL 4 (four) times daily. [facility] levalbutero l (XOPENEX) 0.31 mg/3 mL nebulizer solution 2013-09 00:00: 00 Yes .31mg Inhale 0.31 mg 3 (three) times daily. [facility] aspirin 81 mg chewable tablet 2013-09 00:00: 00 Yes 81mg Take 1 Tab by mouth daily. [facility] ipratropium (ATROVENT) 0.02 % nebulizer solution 2013-09 00:00: 00 Yes .5mg Inhale 2.5 mL 4 (four) times daily. [facility] levalbutero l (XOPENEX) 0.31 mg/3 mL nebulizer solution 2013-09 00:00: 00 Yes .31mg Inhale 0.31 mg 3 (three) times daily. [facility] aspirin 81 mg chewable tablet 2013-09 00:00: 00 Yes 81mg Take 1 Tab by mouth daily. [facility] ipratropium (ATROVENT) 0.02 % nebulizer solution 2013-09 00:00: 00 Yes .5mg Inhale 2.5 mL 4 (four) times daily. [facility] levalbutero l (XOPENEX) 0.31 mg/3 mL nebulizer solution 2013-09 00:00: 00 Yes .31mg Inhale 0.31 mg 3 (three) times daily. [facility] aspirin 81 mg chewable tablet 2013-09 00:00: 00 Yes 81mg Take 1 Tab by mouth daily. [facility] ipratropium (ATROVENT) 0.02 % nebulizer solution 2013-09 00:00: 00 Yes .5mg Inhale 2.5 mL 4 (four) times daily. [facility] levalbutero l (XOPENEX) 0.31 mg/3 mL nebulizer solution 2013-09 00:00: 00 Yes .31mg Inhale 0.31 mg 3 (three) times daily. [facility] 81 mg chewable tablet 2013-09 00:00: 00 Yes 81mg Take 1 Tab by mouth daily. [facility] ipratropium (ATROVENT) 0.02 % nebulizer solution 2013-09 00:00: 00 Yes .5mg Inhale 2.5 mL 4 (four) times daily. [facility] levalbutero l (XOPENEX) 0.31 mg/3 mL nebulizer solution 2013-09 00:00: 00 Yes .31mg Inhale 0.31 mg 3 (three) times daily. [facility] aspirin 81 mg chewable tablet 2013-09 00:00: 00 Yes 81mg Take 1 Tab by mouth daily. [facility] ipratropium (ATROVENT) 0.02 % nebulizer solution 2013-09 00:00: 00 Yes .5mg Inhale 2.5 mL 4 (four) times daily. [facility] levalbutero l (XOPENEX) 0.31 mg/3 mL nebulizer solution 2013-09 00:00: 00 Yes .31mg Inhale 0.31 mg 3 (three) times daily. [facility] aspirin 81 mg chewable tablet 2013-09 00:00: 00 Yes 81mg Take 1 Tab by mouth daily. [facility] ipratropium (ATROVENT) 0.02 % nebulizer solution 2013-09 00:00: 00 Yes .5mg Inhale 2.5 mL 4 (four) times daily. [facility] levalbutero l (XOPENEX) 0.31 mg/3 mL nebulizer solution 2013-09 00:00: 00 Yes .31mg Inhale 0.31 mg 3 (three) times daily. [facility] aspirin 81 mg chewable tablet 2013-09 00:00: 00 Yes 81mg Take 1 Tab by mouth daily. [facility] ipratropium (ATROVENT) 0.02 % nebulizer solution 2013-09 00:00: 00 Yes .5mg Inhale 2.5 mL 4 (four) times daily. [facility] levalbutero l (XOPENEX) 0.31 mg/3 mL nebulizer solution 2013-09 00:00: 00 Yes .31mg Inhale 0.31 mg 3 (three) times daily. [facility] aspirin 81 mg chewable tablet 2013-09 00:00: 00 Yes 81mg Take 1 Tab by mouth daily. [facility] ipratropium (ATROVENT) 0.02 % nebulizer solution 2013-09 00:00: 00 Yes .5mg Inhale 2.5 mL 4 (four) times daily. [facility] levalbutero l (XOPENEX) 0.31 mg/3 mL nebulizer solution 2013-09 00:00: 00 Yes .31mg Inhale 0.31 mg 3 (three) times daily. [facility] aspirin 81 mg chewable tablet 2013-09 00:00: 00 Yes 81mg Take 1 Tab by mouth daily. [facility] ipratropium (ATROVENT) 0.02 % nebulizer solution 2013-09 00:00: 00 Yes .5mg Inhale 2.5 mL 4 (four) times daily. [facility] levalbutero l (XOPENEX) 0.31 mg/3 mL nebulizer solution 2013-09 00:00: 00 Yes .31mg Inhale 0.31 mg 3 (three) times daily. [facility] aspirin 81 mg chewable tablet 2013-09 00:00: 00 Yes 81mg Take 1 Tab by mouth daily. [facility] ipratropium (ATROVENT) 0.02 % nebulizer solution 2013-09 00:00: 00 Yes .5mg Inhale 2.5 mL 4 (four) times daily. [facility] levalbutero l (XOPENEX) 0.31 mg/3 mL nebulizer solution 2013-09 00:00: 00 Yes .31mg Inhale 0.31 mg 3 (three) times daily. [facility] aspirin 81 mg chewable tablet 2013-09 00:00: 00 Yes 81mg Take 1 Tab by mouth daily. [facility] ipratropium (ATROVENT) 0.02 % nebulizer solution 2013-09 00:00: 00 Yes .5mg Inhale 2.5 mL 4 (four) times daily. [facility] levalbutero l (XOPENEX) 0.31 mg/3 mL nebulizer solution 2013-09 00:00: 00 Yes .31mg Inhale 0.31 mg 3 (three) times daily. [facility] 81 mg chewable tablet 2013-09 00:00: 00 Yes 81mg Take 1 Tab by mouth daily. [facility] ipratropium (ATROVENT) 0.02 % nebulizer solution 2013-09 00:00: 00 Yes .5mg Inhale 2.5 mL 4 (four) times daily. [facility] levalbutero l (XOPENEX) 0.31 mg/3 mL nebulizer solution 2013-09 00:00: 00 Yes .31mg Inhale 0.31 mg 3 (three) times daily. [facility] aspirin 81 mg chewable tablet 2013-09 00:00: 00 Yes 81mg Take 1 Tab by mouth daily. [facility] ipratropium (ATROVENT) 0.02 % nebulizer solution 2013-09 00:00: 00 Yes .5mg Inhale 2.5 mL 4 (four) times daily. [facility] levalbutero l (XOPENEX) 0.31 mg/3 mL nebulizer solution 2013-09 00:00: 00 Yes .31mg Inhale 0.31 mg 3 (three) times daily. [facility] 81 mg chewable tablet 2013-09 00:00: 00 Yes 81mg Take 1 Tab by mouth daily. [facility] ipratropium (ATROVENT) 0.02 % nebulizer solution 2013-09 00:00: 00 Yes .5mg Inhale 2.5 mL 4 (four) times daily. [facility] levalbutero l (XOPENEX) 0.31 mg/3 mL nebulizer solution 2013-09 00:00: 00 Yes .31mg Inhale 0.31 mg 3 (three) times daily. [facility] aspirin 81 mg chewable tablet 2013-09 00:00: 00 Yes 81mg Take 1 Tab by mouth daily. [facility] ipratropium (ATROVENT) 0.02 % nebulizer solution 2013-09 00:00: 00 Yes .5mg Inhale 2.5 mL 4 (four) times daily. [facility] levalbutero l (XOPENEX) 0.31 mg/3 mL nebulizer solution 2013-09 00:00: 00 Yes .31mg Inhale 0.31 mg 3 (three) times daily. [facility] aspirin 81 mg chewable tablet 2013-09 00:00: 00 Yes 81mg Take 1 Tab by mouth daily. [facility] ipratropium (ATROVENT) 0.02 % nebulizer solution 2013-09 00:00: 00 Yes .5mg Inhale 2.5 mL 4 (four) times daily. [facility] levalbutero l (XOPENEX) 0.31 mg/3 mL nebulizer solution 2013-09 00:00: 00 Yes .31mg Inhale 0.31 mg 3 (three) times daily. [facility] aspirin 81 mg chewable tablet 2013-09 00:00: 00 Yes 81mg Take 1 Tab by mouth daily. [facility] ipratropium (ATROVENT) 0.02 % nebulizer solution 2013-09 00:00: 00 Yes .5mg Inhale 2.5 mL 4 (four) times daily. [facility] levalbutero l (XOPENEX) 0.31 mg/3 mL nebulizer solution 2013-09 00:00: 00 Yes .31mg Inhale 0.31 mg 3 (three) times daily. [facility] aspirin 81 mg chewable tablet 2013-09 00:00: 00 Yes 81mg Take 1 Tab by mouth daily. [facility] ipratropium (ATROVENT) 0.02 % nebulizer solution 2013-09 00:00: 00 Yes .5mg Inhale 2.5 mL 4 (four) times daily. [facility] levalbutero l (XOPENEX) 0.31 mg/3 mL nebulizer solution 2013-09 00:00: 00 Yes .31mg Inhale 0.31 mg 3 (three) times daily. [facility] aspirin 81 mg chewable tablet 2013-09 00:00: 00 11-28 00:00 :00 No 81mg Take 1 Tab by mouth daily. [facility] ipratropium (ATROVENT) 0.02 % nebulizer solution 2013-09 00:00: 00 11-28 00:00 :00 No .5mg Inhale 2.5 mL 4 (four) times daily. [facility] levalbutero l (XOPENEX) 0.31 mg/3 mL nebulizer solution 2013-09 00:00: 00 11-28 00:00 :00 No .31mg Inhale 0.31 mg 3 (three) times daily. [facility] Immunizations Ordered Immunization Name Filled Immunization Name Date Status Comments Source Pneumococcal 20 Conjugate, PCV20 (Prevnar 20) 2022-12-12 00:00:00 Completed [facility] Pneumococcal 20 Conjugate, PCV20 (Prevnar 20) 2022-12-12 00:00:00 Completed [facility] Pneumococcal 20 Conjugate, PCV20 (Prevnar 20) 2022-12-12 00:00:00 Completed [facility] Pneumococcal 20 Conjugate, PCV20 (Prevnar 20) 2022-12-12 00:00:00 Completed [facility] Pneumococcal 20 Conjugate, PCV20 (Prevnar 20) 2022-12-12 00:00:00 Completed [facility] Pneumococcal 20 Conjugate, PCV20 (Prevnar 20) 2022-12-12 00:00:00 Completed [facility] Pneumococcal 20 Conjugate, PCV20 (Prevnar 20) 2022-12-12 00:00:00 Completed [facility] Pneumococcal 20 Conjugate, PCV20 (Prevnar 20) 2022-12-12 00:00:00 Completed [facility] Pneumococcal 20 Conjugate, PCV20 (Prevnar 20) 2022-12-12 00:00:00 Completed [facility] Pneumococcal 20 Conjugate, PCV20 (Prevnar 20) 2022-12-12 00:00:00 Completed [facility] Pneumococcal 20 Conjugate, PCV20 (Prevnar 20) 2022-12-12 00:00:00 Completed [facility] Pneumococcal 20 Conjugate, PCV20 (Prevnar 20) 2022-12-12 00:00:00 Completed [facility] Pneumococcal 20 Conjugate, PCV20 (Prevnar 20) 2022-12-12 00:00:00 Completed [facility] Pneumococcal 20 Conjugate, PCV20 (Prevnar 20) 2022-12-12 00:00:00 Completed [facility] Pneumococcal 20 Conjugate, PCV20 (Prevnar 20) 2022-12-12 00:00:00 Completed [facility] Pneumococcal 20 Conjugate, PCV20 (Prevnar 20) 2022-12-12 00:00:00 Completed [facility] Pneumococcal 20 Conjugate, PCV20 (Prevnar 20) 2022-12-12 00:00:00 Completed [facility] Pneumococcal 20 Conjugate, PCV20 (Prevnar 20) 2022-12-12 00:00:00 Completed [facility] Pneumococcal 20 Conjugate, PCV20 (Prevnar 20) 2022-12-12 00:00:00 Completed [facility] Pneumococcal 20 Conjugate, PCV20 (Prevnar 20) 2022-12-12 00:00:00 Completed [facility] Pneumococcal 20 Conjugate, PCV20 (Prevnar 20) 2022-12-12 00:00:00 Completed [facility] Pneumococcal 20 Conjugate, PCV20 (Prevnar 20) 2022-12-12 00:00:00 Completed [facility] Pneumococcal 20 Conjugate, PCV20 (Prevnar 20) 2022-12-12 00:00:00 Completed [facility] Pneumococcal 20 Conjugate, PCV20 (Prevnar 20) 2022-12-12 00:00:00 Completed [facility] Pneumococcal 20 Conjugate, PCV20 (Prevnar 20) 2022-12-12 00:00:00 Completed [facility] Pneumococcal 20 Conjugate, PCV20 (Prevnar 20) 2022-12-12 00:00:00 Completed [facility] Pneumococcal 20 Conjugate, PCV20 (Prevnar 20) 2022-12-12 00:00:00 Completed [facility] Pneumococcal 20 Conjugate, PCV20 (Prevnar 20) 2022-12-12 00:00:00 Completed [facility] Pneumococcal 20 Conjugate, PCV20 (Prevnar 20) 2022-12-12 00:00:00 Completed [facility] Pneumococcal 20 Conjugate, PCV20 (Prevnar 20) 2022-12-12 00:00:00 Completed [facility] Pneumococcal 20 Conjugate, PCV20 (Prevnar 20) 2022-12-12 00:00:00 Completed [facility] Pneumococcal 20 Conjugate, PCV20 (Prevnar 20) 2022-12-12 00:00:00 Completed [facility] Pneumococcal 20 Conjugate, PCV20 (Prevnar 20) 2022-12-12 00:00:00 Completed [facility] Pneumococcal 20 Conjugate, PCV20 (Prevnar 20) 2022-12-12 00:00:00 Completed [facility] Pneumococcal 20 Conjugate, PCV20 (Prevnar 20) 2022-12-12 00:00:00 Completed [facility] Pneumococcal 20 Conjugate, PCV20 (Prevnar 20) 2022-12-12 00:00:00 Completed [facility] SARS-COV-2 COVID-19 MODERNA 12+ YRS VACCINE 2020-11-23 00:00:00 Completed [facility] SARS-COV-2 COVID-19 MODERNA VACCINE 2020-11-23 00:00:00 Completed [facility] SARS-COV-2 COVID-19 MODERNA 12+ YRS VACCINE 2020-11-23 00:00:00 Completed [facility] SARS-COV-2 COVID-19 MODERNA 12+ YRS VACCINE 2020-11-23 00:00:00 Completed [facility] SARS-COV-2 COVID-19 MODERNA 12+ YRS VACCINE 2020-11-23 00:00:00 Completed [facility] SARS-COV-2 COVID-19 MODERNA 12+ YRS VACCINE 2020-11-23 00:00:00 Completed [facility] SARS-COV-2 COVID-19 MODERNA 12+ YRS VACCINE 2020-11-23 00:00:00 Completed [facility] SARS-COV-2 COVID-19 MODERNA VACCINE 2020-11-23 00:00:00 Completed [facility] SARS-COV-2 COVID-19 MODERNA 12+ YRS VACCINE 2020-11-23 00:00:00 Completed [facility] SARS-COV-2 COVID-19 MODERNA 12+ YRS VACCINE 2020-11-23 00:00:00 Completed [facility] SARS-COV-2 COVID-19 MODERNA 12+ YRS VACCINE 2020-11-23 00:00:00 Completed [facility] SARS-COV-2 COVID-19 MODERNA 12+ YRS VACCINE 2020-11-23 00:00:00 Completed [facility] SARS-COV-2 COVID-19 MODERNA 12+ YRS VACCINE 2020-11-23 00:00:00 Completed [facility] SARS-COV-2 COVID-19 MODERNA 12+ YRS VACCINE 2020-11-23 00:00:00 Completed [facility] SARS-COV-2 COVID-19 MODERNA VACCINE 2020-11-23 00:00:00 Completed [facility] SARS-COV-2 COVID-19 MODERNA 12+ YRS VACCINE 2020-11-23 00:00:00 Completed [facility] SARS-COV-2 COVID-19 MODERNA 12+ YRS VACCINE 2020-11-23 00:00:00 Completed [facility] SARS-COV-2 COVID-19 MODERNA 12+ YRS VACCINE 2020-11-23 00:00:00 Completed [facility] SARS-COV-2 COVID-19 MODERNA 12+ YRS VACCINE 2020-11-23 00:00:00 Completed [facility] SARS-COV-2 COVID-19 MODERNA 12+ YRS VACCINE 2020-11-23 00:00:00 Completed [facility] SARS-COV-2 COVID-19 MODERNA 12+ YRS VACCINE 2020-11-23 00:00:00 Completed [facility] SARS-COV-2 COVID-19 MODERNA 12+ YRS VACCINE 2020-11-23 00:00:00 Completed [facility] SARS-COV-2 COVID-19 MODERNA 12+ YRS VACCINE 2020-11-23 00:00:00 Completed [facility] SARS-COV-2 COVID-19 MODERNA 12+ YRS VACCINE 2020-11-23 00:00:00 Completed [facility] SARS-COV-2 COVID-19 MODERNA 12+ YRS VACCINE 2020-11-23 00:00:00 Completed [facility] SARS-COV-2 COVID-19 MODERNA 12+ YRS VACCINE 2020-11-23 00:00:00 Completed [facility] SARS-COV-2 COVID-19 MODERNA 12+ YRS VACCINE 2020-11-23 00:00:00 Completed [facility] SARS-COV-2 COVID-19 MODERNA 12+ YRS VACCINE 2020-11-23 00:00:00 Completed [facility] SARS-COV-2 COVID-19 MODERNA 12+ YRS VACCINE 2020-11-23 00:00:00 Completed [facility] SARS-COV-2 COVID-19 MODERNA 12+ YRS VACCINE 2020-11-23 00:00:00 Completed [facility] SARS-COV-2 COVID-19 MODERNA 12+ YRS VACCINE 2020-11-23 00:00:00 Completed [facility] SARS-COV-2 COVID-19 MODERNA 12+ YRS VACCINE 2020-11-23 00:00:00 Completed [facility] SARS-COV-2 COVID-19 MODERNA 12+ YRS VACCINE 2020-11-23 00:00:00 Completed [facility] SARS-COV-2 COVID-19 MODERNA 12+ YRS VACCINE 2020-11-23 00:00:00 Completed [facility] SARS-COV-2 COVID-19 MODERNA VACCINE 2020-11-23 00:00:00 Completed [facility] SARS-COV-2 COVID-19 MODERNA 12+ YRS VACCINE 2020-11-23 00:00:00 Completed [facility] SARS-COV-2 COVID-19 MODERNA 12+ YRS VACCINE 2020-11-23 00:00:00 Completed [facility] SARS-COV-2 COVID-19 MODERNA 12+ YRS VACCINE 2020-11-23 00:00:00 Completed [facility] SARS-COV-2 COVID-19 MODERNA 12+ YRS VACCINE 2020-11-23 00:00:00 Completed [facility] SARS-COV-2 COVID-19 MODERNA 12+ YRS VACCINE 2020-11-23 00:00:00 Completed [facility] SARS-COV-2 COVID-19 MODERNA VACCINE 2020-11-23 00:00:00 Completed [facility] SARS-COV-2 COVID-19 MODERNA 12+ YRS VACCINE 2020-11-23 00:00:00 Completed [facility] SARS-COV-2 COVID-19 MODERNA 12+ YRS VACCINE 2020-11-23 00:00:00 Completed [facility] SARS-COV-2 COVID-19 MODERNA 12+ YRS VACCINE 2020-11-23 00:00:00 Completed [facility] SARS-COV-2 COVID-19 MODERNA 12+ YRS VACCINE 2020-11-23 00:00:00 Completed [facility] SARS-COV-2 COVID-19 MODERNA 12+ YRS VACCINE 2020-11-23 00:00:00 Completed [facility] SARS-COV-2 COVID-19 MODERNA VACCINE 2020-11-23 00:00:00 Completed [facility] SARS-COV-2 COVID-19 MODERNA VACCINE 2020-11-23 00:00:00 Completed [facility] SARS-COV-2 COVID-19 MODERNA VACCINE 2020-11-23 00:00:00 Completed [facility] SARS-COV-2 COVID-19 MODERNA VACCINE 2020-11-23 00:00:00 Completed [facility] SARS-COV-2 COVID-19 MODERNA VACCINE 2020-11-23 00:00:00 Completed [facility] SARS-COV-2 COVID-19 MODERNA VACCINE 2020-11-23 00:00:00 Completed [facility] SARS-COV-2 COVID-19 MODERNA VACCINE 2020-11-23 00:00:00 Completed [facility] SARS-COV-2 COVID-19 MODERNA VACCINE 2020-11-23 00:00:00 Completed [facility] SARS-COV-2 COVID-19 MODERNA VACCINE 2020-11-23 00:00:00 Completed [facility] SARS-COV-2 COVID-19 MODERNA VACCINE 2020-11-23 00:00:00 Completed [facility] SARS-COV-2 COVID-19 MODERNA VACCINE 2020-11-23 00:00:00 Completed [facility] SARS-COV-2 COVID-19 MODERNA VACCINE 2020-11-23 00:00:00 Completed [facility] SARS-COV-2 COVID-19 MODERNA VACCINE 2020-11-23 00:00:00 Completed [facility] SARS-COV-2 COVID-19 MODERNA VACCINE 2020-11-23 00:00:00 Completed [facility] SARS-COV-2 COVID-19 MODERNA 12+ YRS VACCINE 2020-11-23 00:00:00 Completed [facility] SARS-COV-2 COVID-19 MODERNA 12+ YRS VACCINE 2020-11-23 00:00:00 Completed [facility] SARS-COV-2 COVID-19 MODERNA 12+ YRS VACCINE 2020-11-23 00:00:00 Completed [facility] SARS-COV-2 COVID-19 MODERNA 12+ YRS VACCINE 2020-11-23 00:00:00 Completed [facility] SARS-COV-2 COVID-19 MODERNA VACCINE 2020-11-23 00:00:00 Completed [facility] SARS-COV-2 COVID-19 MODERNA 12+ YRS VACCINE 2020-11-23 00:00:00 Completed [facility] SARS-COV-2 COVID-19 MODERNA 12+ YRS VACCINE 2020-11-23 00:00:00 Completed [facility] SARS-COV-2 COVID-19 MODERNA 12+ YRS VACCINE 2020-11-23 00:00:00 Completed [facility] SARS-COV-2 COVID-19 MODERNA VACCINE 2020-10-26 00:00:00 Completed [facility] SARS-COV-2 COVID-19 MODERNA 12+ YRS VACCINE 2020-10-26 00:00:00 Completed [facility] SARS-COV-2 COVID-19 MODERNA 12+ YRS VACCINE 2020-10-26 00:00:00 Completed [facility] SARS-COV-2 COVID-19 MODERNA 12+ YRS VACCINE 2020-10-26 00:00:00 Completed [facility] SARS-COV-2 COVID-19 MODERNA 12+ YRS VACCINE 2020-10-26 00:00:00 Completed [facility] SARS-COV-2 COVID-19 MODERNA 12+ YRS VACCINE 2020-10-26 00:00:00 Completed [facility] SARS-COV-2 COVID-19 MODERNA VACCINE 2020-10-26 00:00:00 Completed [facility] SARS-COV-2 COVID-19 MODERNA 12+ YRS VACCINE 2020-10-26 00:00:00 Completed [facility] SARS-COV-2 COVID-19 MODERNA 12+ YRS VACCINE 2020-10-26 00:00:00 Completed [facility] SARS-COV-2 COVID-19 MODERNA 12+ YRS VACCINE 2020-10-26 00:00:00 Completed [facility] SARS-COV-2 COVID-19 MODERNA 12+ YRS VACCINE 2020-10-26 00:00:00 Completed [facility] SARS-COV-2 COVID-19 MODERNA 12+ YRS VACCINE 2020-10-26 00:00:00 Completed [facility] SARS-COV-2 COVID-19 MODERNA 12+ YRS VACCINE 2020-10-26 00:00:00 Completed [facility] SARS-COV-2 COVID-19 MODERNA 12+ YRS VACCINE 2020-10-26 00:00:00 Completed [facility] SARS-COV-2 COVID-19 MODERNA VACCINE 2020-10-26 00:00:00 Completed [facility] SARS-COV-2 COVID-19 MODERNA 12+ YRS VACCINE 2020-10-26 00:00:00 Completed [facility] SARS-COV-2 COVID-19 MODERNA 12+ YRS VACCINE 2020-10-26 00:00:00 Completed [facility] SARS-COV-2 COVID-19 MODERNA 12+ YRS VACCINE 2020-10-26 00:00:00 Completed [facility] SARS-COV-2 COVID-19 MODERNA 12+ YRS VACCINE 2020-10-26 00:00:00 Completed [facility] SARS-COV-2 COVID-19 MODERNA 12+ YRS VACCINE 2020-10-26 00:00:00 Completed [facility] SARS-COV-2 COVID-19 MODERNA 12+ YRS VACCINE 2020-10-26 00:00:00 Completed [facility] SARS-COV-2 COVID-19 MODERNA 12+ YRS VACCINE 2020-10-26 00:00:00 Completed [facility] SARS-COV-2 COVID-19 MODERNA 12+ YRS VACCINE 2020-10-26 00:00:00 Completed [facility] SARS-COV-2 COVID-19 MODERNA 12+ YRS VACCINE 2020-10-26 00:00:00 Completed [facility] SARS-COV-2 COVID-19 MODERNA 12+ YRS VACCINE 2020-10-26 00:00:00 Completed [facility] SARS-COV-2 COVID-19 MODERNA 12+ YRS VACCINE 2020-10-26 00:00:00 Completed [facility] SARS-COV-2 COVID-19 MODERNA 12+ YRS VACCINE 2020-10-26 00:00:00 Completed [facility] SARS-COV-2 COVID-19 MODERNA 12+ YRS VACCINE 2020-10-26 00:00:00 Completed [facility] SARS-COV-2 COVID-19 MODERNA 12+ YRS VACCINE 2020-10-26 00:00:00 Completed [facility] SARS-COV-2 COVID-19 MODERNA 12+ YRS VACCINE 2020-10-26 00:00:00 Completed [facility] SARS-COV-2 COVID-19 MODERNA 12+ YRS VACCINE 2020-10-26 00:00:00 Completed [facility] SARS-COV-2 COVID-19 MODERNA 12+ YRS VACCINE 2020-10-26 00:00:00 Completed [facility] SARS-COV-2 COVID-19 MODERNA 12+ YRS VACCINE 2020-10-26 00:00:00 Completed [facility] SARS-COV-2 COVID-19 MODERNA 12+ YRS VACCINE 2020-10-26 00:00:00 Completed [facility] SARS-COV-2 COVID-19 MODERNA VACCINE 2020-10-26 00:00:00 Completed [facility] SARS-COV-2 COVID-19 MODERNA 12+ YRS VACCINE 2020-10-26 00:00:00 Completed [facility] SARS-COV-2 COVID-19 MODERNA 12+ YRS VACCINE 2020-10-26 00:00:00 Completed [facility] SARS-COV-2 COVID-19 MODERNA 12+ YRS VACCINE 2020-10-26 00:00:00 Completed [facility] SARS-COV-2 COVID-19 MODERNA 12+ YRS VACCINE 2020-10-26 00:00:00 Completed [facility] SARS-COV-2 COVID-19 MODERNA 12+ YRS VACCINE 2020-10-26 00:00:00 Completed [facility] SARS-COV-2 COVID-19 MODERNA VACCINE 2020-10-26 00:00:00 Completed [facility] SARS-COV-2 COVID-19 MODERNA 12+ YRS VACCINE 2020-10-26 00:00:00 Completed [facility] SARS-COV-2 COVID-19 MODERNA 12+ YRS VACCINE 2020-10-26 00:00:00 Completed [facility] SARS-COV-2 COVID-19 MODERNA 12+ YRS VACCINE 2020-10-26 00:00:00 Completed [facility] SARS-COV-2 COVID-19 MODERNA 12+ YRS VACCINE 2020-10-26 00:00:00 Completed [facility] SARS-COV-2 COVID-19 MODERNA 12+ YRS VACCINE 2020-10-26 00:00:00 Completed [facility] SARS-COV-2 COVID-19 MODERNA VACCINE 2020-10-26 00:00:00 Completed [facility] SARS-COV-2 COVID-19 MODERNA VACCINE 2020-10-26 00:00:00 Completed [facility] SARS-COV-2 COVID-19 MODERNA VACCINE 2020-10-26 00:00:00 Completed [facility] SARS-COV-2 COVID-19 MODERNA VACCINE 2020-10-26 00:00:00 Completed [facility] SARS-COV-2 COVID-19 MODERNA VACCINE 2020-10-26 00:00:00 Completed [facility] SARS-COV-2 COVID-19 MODERNA VACCINE 2020-10-26 00:00:00 Completed [facility] SARS-COV-2 COVID-19 MODERNA VACCINE 2020-10-26 00:00:00 Completed [facility] SARS-COV-2 COVID-19 MODERNA VACCINE 2020-10-26 00:00:00 Completed [facility] SARS-COV-2 COVID-19 MODERNA VACCINE 2020-10-26 00:00:00 Completed [facility] SARS-COV-2 COVID-19 MODERNA VACCINE 2020-10-26 00:00:00 Completed [facility] SARS-COV-2 COVID-19 MODERNA VACCINE 2020-10-26 00:00:00 Completed [facility] SARS-COV-2 COVID-19 MODERNA VACCINE 2020-10-26 00:00:00 Completed [facility] SARS-COV-2 COVID-19 MODERNA VACCINE 2020-10-26 00:00:00 Completed [facility] SARS-COV-2 COVID-19 MODERNA VACCINE 2020-10-26 00:00:00 Completed [facility] SARS-COV-2 COVID-19 MODERNA 12+ YRS VACCINE 2020-10-26 00:00:00 Completed [facility] SARS-COV-2 COVID-19 MODERNA 12+ YRS VACCINE 2020-10-26 00:00:00 Completed [facility] SARS-COV-2 COVID-19 MODERNA 12+ YRS VACCINE 2020-10-26 00:00:00 Completed [facility] SARS-COV-2 COVID-19 MODERNA 12+ YRS VACCINE 2020-10-26 00:00:00 Completed [facility] SARS-COV-2 COVID-19 MODERNA VACCINE 2020-10-26 00:00:00 Completed [facility] SARS-COV-2 COVID-19 MODERNA 12+ YRS VACCINE 2020-10-26 00:00:00 Completed [facility] SARS-COV-2 COVID-19 MODERNA 12+ YRS VACCINE 2020-10-26 00:00:00 Completed [facility] SARS-COV-2 COVID-19 MODERNA 12+ YRS VACCINE 2020-10-26 00:00:00 Completed [facility] Td 2019-02-16 00:00:00 Completed [facility] TD, NOS 2019-02-16 00:00:00 Completed [facility] TD, NOS 2019-02-16 00:00:00 Completed [facility] TD, NOS 2019-02-16 00:00:00 Completed [facility] TD, NOS 2019-02-16 00:00:00 Completed [facility] TD, NOS 2019-02-16 00:00:00 Completed [facility] Td 2019-02-16 00:00:00 Completed [facility] TD, NOS 2019-02-16 00:00:00 Completed [facility] TD, NOS 2019-02-16 00:00:00 Completed [facility] TD, NOS 2019-02-16 00:00:00 Completed [facility] TD, NOS 2019-02-16 00:00:00 Completed [facility] TD, NOS 2019-02-16 00:00:00 Completed [facility] TD, NOS 2019-02-16 00:00:00 Completed [facility] TD, NOS 2019-02-16 00:00:00 Completed [facility] Td 2019-02-16 00:00:00 Completed [facility] TD, NOS 2019-02-16 00:00:00 Completed [facility] TD, NOS 2019-02-16 00:00:00 Completed [facility] TD, NOS 2019-02-16 00:00:00 Completed [facility] TD, NOS 2019-02-16 00:00:00 Completed [facility] Td 2019-02-16 00:00:00 Completed [facility] TD, NOS 2019-02-16 00:00:00 Completed [facility] TD, NOS 2019-02-16 00:00:00 Completed [facility] TD, NOS 2019-02-16 00:00:00 Completed [facility] TD, NOS 2019-02-16 00:00:00 Completed [facility] Td 2019-02-16 00:00:00 Completed [facility] TD, NOS 2019-02-16 00:00:00 Completed [facility] TD, NOS 2019-02-16 00:00:00 Completed [facility] TD, NOS 2019-02-16 00:00:00 Completed [facility] TD, NOS 2019-02-16 00:00:00 Completed [facility] TD, NOS 2019-02-16 00:00:00 Completed [facility] TD, NOS 2019-02-16 00:00:00 Completed [facility] TD, NOS 2019-02-16 00:00:00 Completed [facility] Td 2019-02-16 00:00:00 Completed [facility] TD, NOS 2019-02-16 00:00:00 Completed [facility] TD, NOS 2019-02-16 00:00:00 Completed [facility] TD, NOS 2019-02-16 00:00:00 Completed [facility] TD, NOS 2019-02-16 00:00:00 Completed [facility] Td 2019-02-16 00:00:00 Completed [facility] TD, NOS 2019-02-16 00:00:00 Completed [facility] TD, NOS 2019-02-16 00:00:00 Completed [facility] TD, NOS 2019-02-16 00:00:00 Completed [facility] TD, NOS 2019-02-16 00:00:00 Completed [facility] Td 2019-02-16 00:00:00 Completed [facility] TD, NOS 2019-02-16 00:00:00 Completed [facility] TD, NOS 2019-02-16 00:00:00 Completed [facility] TD, NOS 2019-02-16 00:00:00 Completed [facility] TD, NOS 2019-02-16 00:00:00 Completed [facility] TD, NOS 2019-02-16 00:00:00 Completed [facility] TD, NOS 2019-02-16 00:00:[address] [facility] Td 2019-02-16 00:00:00 Completed [facility] Td 2019-02-16 00:00:00 Completed [facility] Td 2019-02-16 00:00:00 Completed [facility] Td 2019-02-16 00:00:00 Completed [facility] Td 2019-02-16 00:00:00 Completed [facility] Td 2019-02-16 00:00:00 Completed [facility] Td 2019-02-16 00:00:00 Completed [facility] Td 2019-02-16 00:00:00 Completed [facility] Td 2019-02-16 00:00:00 Completed [facility] Td 2019-02-16 00:00:00 Completed [facility] Td 2019-02-16 00:00:00 Completed [facility] Td 2019-02-16 00:00:00 Completed [facility] Td 2019-02-16 00:00:00 Completed [facility] Td 2019-02-16 00:00:00 Completed [facility] TD, NOS 2019-02-16 00:00:00 Completed [facility] TD, NOS 2019-02-16 00:00:00 Completed [facility] TD, NOS 2019-02-16 00:00:00 Completed [facility] TD, NOS 2019-02-16 00:00:00 Completed [facility] Td 2019-02-16 00:00:00 Completed [facility] TD, NOS 2019-02-16 00:00:00 Completed [facility] TD, NOS 2019-02-16 00:00:00 Completed [facility] TD, NOS 2019-02-16 00:00:00 Completed [facility] Pneumococcal Polysaccharide, PPSV23 (PNEUMOVAX) 2014-09-05 00:00:00 Completed [facility] Influenza Virus Vaccine Quad IM 3+ YRS 2014-09-05 00:00:00 Completed [facility] Pneumococcal Polysaccharide, PPSV23 (PNEUMOVAX) 2014-09-05 00:00:00 Completed [facility] Influenza Virus Vaccine Quad IM 3+ YRS 2014-09-05 00:00:00 Completed [facility] Pneumococcal Polysaccharide, PPSV23 (PNEUMOVAX) 2014-09-05 00:00:00 Completed [facility] Influenza Virus Vaccine Quad IM 3+ YRS 2014-09-05 00:00:00 Completed [facility] Pneumococcal Polysaccharide, PPSV23 (PNEUMOVAX) 2014-09-05 00:00:00 Completed [facility] Influenza Virus Vaccine Quad IM 3+ YRS 2014-09-05 00:00:00 Completed [facility] Pneumococcal Polysaccharide, PPSV23 (PNEUMOVAX) 2014-09-05 00:00:00 Completed [facility] Influenza Virus Vaccine Quad IM 3+ YRS 2014-09-05 00:00:00 Completed [facility] Pneumococcal Polysaccharide, PPSV23 (PNEUMOVAX) 2014-09-05 00:00:00 Completed [facility] Influenza Virus Vaccine Quad IM 3+ YRS 2014-09-05 00:00:00 Completed [facility] Pneumococcal Polysaccharide, PPSV23 (PNEUMOVAX) 2014-09-05 00:00:00 Completed [facility] Influenza Virus Vaccine Quad IM 3+ YRS 2014-09-05 00:00:00 Completed [facility] Pneumococcal Polysaccharide, PPSV23 (PNEUMOVAX) 2014-09-05 00:00:00 Completed [facility] Influenza Virus Vaccine Quad IM 3+ YRS 2014-09-05 00:00:00 Completed [facility] Pneumococcal Polysaccharide, PPSV23 (PNEUMOVAX) 2014-09-05 00:00:00 Completed [facility] Influenza Virus Vaccine Quad IM 3+ YRS 2014-09-05 00:00:00 Completed [facility] Pneumococcal Polysaccharide, PPSV23 (PNEUMOVAX) 2014-09-05 00:00:00 Completed [facility] Influenza Virus Vaccine Quad IM 3+ YRS 2014-09-05 00:00:00 Completed [facility] Pneumococcal Polysaccharide, PPSV23 (PNEUMOVAX) 2014-09-05 00:00:00 Completed [facility] Influenza Virus Vaccine Quad IM 3+ YRS 2014-09-05 00:00:00 Completed [facility] Pneumococcal Polysaccharide, PPSV23 (PNEUMOVAX) 2014-09-05 00:00:00 Completed [facility] Influenza Virus Vaccine Quad IM 3+ YRS 2014-09-05 00:00:00 Completed [facility] Pneumococcal Polysaccharide, PPSV23 (PNEUMOVAX) 2014-09-05 00:00:00 Completed [facility] Influenza Virus Vaccine Quad IM 3+ YRS 2014-09-05 00:00:00 Completed [facility] Influenza Virus Vaccine Quad IM 3+ YRS 2014-09-05 00:00:00 Completed [facility] Pneumococcal Polysaccharide, PPSV23 (PNEUMOVAX) 2014-09-05 00:00:00 Completed [facility] Pneumococcal Polysaccharide, PPSV23 (PNEUMOVAX) 2014-09-05 00:00:00 Completed [facility] Influenza Virus Vaccine Quad IM 3+ YRS 2014-09-05 00:00:00 Completed [facility] Pneumococcal Polysaccharide, PPSV23 (PNEUMOVAX) 2014-09-05 00:00:00 Completed [facility] Influenza Virus Vaccine Quad IM 3+ YRS 2014-09-05 00:00:00 Completed [facility] Pneumococcal Polysaccharide, PPSV23 (PNEUMOVAX) 2014-09-05 00:00:00 Completed [facility] Influenza Virus Vaccine Quad IM 3+ YRS 2014-09-05 00:00:00 Completed [facility] Pneumococcal Polysaccharide, PPSV23 (PNEUMOVAX) 2014-09-05 00:00:00 Completed [facility] Influenza Virus Vaccine Quad IM 3+ YRS 2014-09-05 00:00:00 Completed [facility] Pneumococcal Polysaccharide, PPSV23 (PNEUMOVAX) 2014-09-05 00:00:00 Completed [facility] Influenza Virus Vaccine Quad IM 3+ YRS 2014-09-05 00:00:00 Completed [facility] Pneumococcal Polysaccharide, PPSV23 (PNEUMOVAX) 2014-09-05 00:00:00 Completed [facility] Influenza Virus Vaccine Quad IM 3+ YRS 2014-09-05 00:00:00 Completed [facility] Pneumococcal Polysaccharide, PPSV23 (PNEUMOVAX) 2014-09-05 00:00:00 Completed [facility] Influenza Virus Vaccine Quad IM 3+ YRS 2014-09-05 00:00:00 Completed [facility] Pneumococcal Polysaccharide, PPSV23 (PNEUMOVAX) 2014-09-05 00:00:00 Completed [facility] Influenza Virus Vaccine Quad IM 3+ YRS 2014-09-05 00:00:00 Completed [facility] Pneumococcal Polysaccharide, PPSV23 (PNEUMOVAX) 2014-09-05 00:00:00 Completed [facility] Influenza Virus Vaccine Quad IM 3+ YRS 2014-09-05 00:00:00 Completed [facility] Pneumococcal Polysaccharide, PPSV23 (PNEUMOVAX) 2014-09-05 00:00:00 Completed [facility] Influenza Virus Vaccine Quad IM 3+ YRS 2014-09-05 00:00:00 Completed [facility] Pneumococcal Polysaccharide, PPSV23 (PNEUMOVAX) 2014-09-05 00:00:00 Completed [facility] Influenza Virus Vaccine Quad IM 3+ YRS 2014-09-05 00:00:00 Completed [facility] Pneumococcal Polysaccharide, PPSV23 (PNEUMOVAX) 2014-09-05 00:00:00 Completed [facility] Influenza Virus Vaccine Quad IM 3+ YRS 2014-09-05 00:00:00 Completed [facility] Pneumococcal Polysaccharide, PPSV23 (PNEUMOVAX) 2014-09-05 00:00:00 Completed [facility] Influenza Virus Vaccine Quad IM 3+ YRS 2014-09-05 00:00:00 Completed [facility] Pneumococcal Polysaccharide, PPSV23 (PNEUMOVAX) 2014-09-05 00:00:00 Completed [facility] Influenza Virus Vaccine Quad IM 3+ YRS 2014-09-05 00:00:00 Completed [facility] Pneumococcal Polysaccharide, PPSV23 (PNEUMOVAX) 2014-09-05 00:00:00 Completed [facility] Influenza Virus Vaccine Quad IM 3+ YRS 2014-09-05 00:00:00 Completed [facility] Pneumococcal Polysaccharide, PPSV23 (PNEUMOVAX) 2014-09-05 00:00:00 Completed [facility] Influenza Virus Vaccine Quad IM 3+ YRS 2014-09-05 00:00:00 Completed [facility] Pneumococcal Polysaccharide, PPSV23 (PNEUMOVAX) 2014-09-05 00:00:00 Completed [facility] Influenza Virus Vaccine Quad IM 3+ YRS 2014-09-05 00:00:00 Completed [facility] Influenza Virus Vaccine Quad IM 3+ YRS 2014-09-05 00:00:00 Completed [facility] Pneumococcal Polysaccharide, PPSV23 (PNEUMOVAX) 2014-09-05 00:00:00 Completed [facility] Pneumococcal Polysaccharide, PPSV23 (PNEUMOVAX) 2014-09-05 00:00:00 Completed [facility] Influenza Virus Vaccine Quad IM 3+ YRS 2014-09-05 00:00:00 Completed [facility] Pneumococcal Polysaccharide, PPSV23 (PNEUMOVAX) 2014-09-05 00:00:00 Completed [facility] Influenza Virus Vaccine Quad IM 3+ YRS 2014-09-05 00:00:00 Completed [facility] Pneumococcal Polysaccharide, PPSV23 (PNEUMOVAX) 2014-09-05 00:00:00 Completed [facility] Influenza Virus Vaccine Quad IM 3+ YRS 2014-09-05 00:00:00 Completed [facility] Pneumococcal Polysaccharide, PPSV23 (PNEUMOVAX) 2014-09-05 00:00:00 Completed [facility] Influenza Virus Vaccine Quad IM 3+ YRS 2014-09-05 00:00:00 Completed [facility] Pneumococcal Polysaccharide, PPSV23 (PNEUMOVAX) 2014-09-05 00:00:00 Completed [facility] Influenza Virus Vaccine Quad IM 3+ YRS 2014-09-05 00:00:00 Completed [facility] Pneumococcal Polysaccharide, PPSV23 (PNEUMOVAX) 2014-09-05 00:00:00 Completed [facility] Influenza Virus Vaccine Quad IM 3+ YRS 2014-09-05 00:00:00 Completed [facility] Pneumococcal Polysaccharide, PPSV23 (PNEUMOVAX) 2014-09-05 00:00:00 Completed [facility] Influenza Virus Vaccine Quad IM 3+ YRS 2014-09-05 00:00:00 Completed [facility] Pneumococcal Polysaccharide, PPSV23 (PNEUMOVAX) 2014-09-05 00:00:00 Completed [facility] Influenza Virus Vaccine Quad IM 3+ YRS 2014-09-05 00:00:00 Completed [facility] Pneumococcal Polysaccharide, PPSV23 (PNEUMOVAX) 2014-09-05 00:00:00 Completed [facility] Influenza Virus Vaccine Quad IM 3+ YRS 2014-09-05 00:00:00 Completed [facility] Pneumococcal Polysaccharide, PPSV23 (PNEUMOVAX) 2014-09-05 00:00:00 Completed [facility] Influenza Virus Vaccine Quad IM 3+ YRS 2014-09-05 00:00:00 Completed [facility] Pneumococcal Polysaccharide, PPSV23 (PNEUMOVAX) 2014-09-05 00:00:00 Completed [facility] Influenza Virus Vaccine Quad IM 3+ YRS 2014-09-05 00:00:00 Completed [facility] Pneumococcal Polysaccharide, PPSV23 (PNEUMOVAX) 2014-09-05 00:00:00 Completed [facility] Influenza Virus Vaccine Quad IM 3+ YRS 2014-09-05 00:00:00 Completed [facility] Pneumococcal Polysaccharide, PPSV23 (PNEUMOVAX) 2014-09-05 00:00:00 Completed [facility] Influenza Virus Vaccine Quad IM 3+ YRS 2014-09-05 00:00:00 Completed [facility] Pneumococcal Polysaccharide, PPSV23 (PNEUMOVAX) 2014-09-05 00:00:00 Completed [facility] Influenza Virus Vaccine Quad IM 3+ YRS 2014-09-05 00:00:00 Completed [facility] Pneumococcal Polysaccharide, PPSV23 (PNEUMOVAX) 2014-09-05 00:00:00 Completed [facility] Influenza Virus Vaccine Quad IM 3+ YRS 2014-09-05 00:00:00 Completed [facility] Pneumococcal Polysaccharide, PPSV23 (PNEUMOVAX) 2014-09-05 00:00:00 Completed [facility] Influenza Virus Vaccine Quad IM 3+ YRS 2014-09-05 00:00:00 Completed [facility] Pneumococcal Polysaccharide, PPSV23 (PNEUMOVAX) 2014-09-05 00:00:00 Completed [facility] Influenza Virus Vaccine Quad IM 3+ YRS 2014-09-05 00:00:00 Completed [facility] Pneumococcal Polysaccharide, PPSV23 (PNEUMOVAX) 2014-09-05 00:00:00 Completed [facility] Influenza Virus Vaccine Quad IM 3+ YRS 2014-09-05 00:00:00 Completed [facility] Pneumococcal Polysaccharide, PPSV23 (PNEUMOVAX) 2014-09-05 00:00:00 Completed [facility] Influenza Virus Vaccine Quad IM 3+ YRS 2014-09-05 00:00:00 Completed [facility] Pneumococcal Polysaccharide, PPSV23 (PNEUMOVAX) 2014-09-05 00:00:00 Completed [facility] Influenza Virus Vaccine Quad IM 3+ YRS 2014-09-05 00:00:00 Completed [facility] Pneumococcal Polysaccharide, PPSV23 (PNEUMOVAX) 2014-09-05 00:00:00 Completed [facility] Influenza Virus Vaccine Quad IM 3+ YRS 2014-09-05 00:00:00 Completed [facility] Pneumococcal Polysaccharide, PPSV23 (PNEUMOVAX) 2014-09-05 00:00:00 Completed [facility] Influenza Virus Vaccine Quad IM 3+ YRS 2014-09-05 00:00:00 Completed [facility] Pneumococcal Polysaccharide, PPSV23 (PNEUMOVAX) 2014-09-05 00:00:00 Completed [facility] Influenza Virus Vaccine Quad IM 3+ YRS 2014-09-05 00:00:00 Completed [facility] Pneumococcal Polysaccharide, PPSV23 (PNEUMOVAX) 2014-09-05 00:00:00 Completed [facility] Influenza Virus Vaccine Quad IM 3+ YRS 2014-09-05 00:00:00 Completed [facility] Pneumococcal Polysaccharide, PPSV23 (PNEUMOVAX) 2014-09-05 00:00:00 Completed [facility] Influenza Virus Vaccine Quad IM 3+ YRS 2014-09-05 00:00:00 Completed [facility] Pneumococcal Polysaccharide, PPSV23 (PNEUMOVAX) 2014-09-05 00:00:00 Completed [facility] Influenza Virus Vaccine Quad IM 3+ YRS 2014-09-05 00:00:00 Completed [facility] Pneumococcal Polysaccharide, PPSV23 (PNEUMOVAX) 2014-09-05 00:00:00 Completed [facility] Influenza Virus Vaccine Quad IM 3+ YRS 2014-09-05 00:00:00 Completed [facility] Pneumococcal Polysaccharide, PPSV23 (PNEUMOVAX) 2014-09-05 00:00:00 Completed [facility] Influenza Virus Vaccine Quad IM 3+ YRS 2014-09-05 00:00:00 Completed [facility] Pneumococcal Polysaccharide, PPSV23 (PNEUMOVAX) 2014-09-05 00:00:00 Completed [facility] Influenza Virus Vaccine Quad IM 3+ YRS 2014-09-05 00:00:00 Completed [facility] Pneumococcal Polysaccharide, PPSV23 (PNEUMOVAX) 2014-09-05 00:00:00 Completed [facility] Influenza Virus Vaccine Quad IM 3+ YRS 2014-09-05 00:00:00 Completed [facility] Pneumococcal Polysaccharide, PPSV23 (PNEUMOVAX) 2014-09-05 00:00:00 Completed [facility] Influenza Virus Vaccine Quad IM 3+ YRS 2014-09-05 00:00:00 Completed [facility] Pneumococcal Polysaccharide, PPSV23 (PNEUMOVAX) 2014-09-05 00:00:00 Completed [facility] Influenza Virus Vaccine Quad IM 3+ YRS 2014-09-05 00:00:00 Completed [facility] Pneumococcal Polysaccharide, PPSV23 (PNEUMOVAX) 2014-09-05 00:00:00 Completed [facility] Influenza Virus Vaccine Quad IM 3+ YRS 2014-09-05 00:00:00 Completed [facility] Pneumococcal Polysaccharide, PPSV23 (PNEUMOVAX) 2014-09-05 00:00:00 Completed [facility] Influenza Virus Vaccine Quad IM 3+ YRS 2014-09-05 00:00:00 Completed [facility] Influenza Virus Vaccine Quad IM 3+ YRS 2014-09-05 00:00:00 Completed [facility] Pneumococcal Polysaccharide, PPSV23 (PNEUMOVAX) 2014-09-05 00:00:00 Completed [facility] Pneumococcal Polysaccharide, PPSV23 (PNEUMOVAX) 2014-09-05 00:00:00 Completed [facility] Influenza Virus Vaccine Quad IM 3+ YRS 2014-09-05 00:00:00 Completed [facility] Pneumococcal Polysaccharide, PPSV23 (PNEUMOVAX) 2014-09-05 00:00:00 Completed [facility] Influenza Virus Vaccine Quad IM 3+ YRS 2014-09-05 00:00:00 Completed [facility] Pneumococcal Polysaccharide, PPSV23 (PNEUMOVAX) 2014-09-05 00:00:00 Completed [facility] Influenza Virus Vaccine Quad IM 3+ YRS 2014-09-05 00:00:00 Completed [facility] Pneumococcal Polysaccharide, PPSV23 (PNEUMOVAX) 2014-09-05 00:00:00 Completed [facility] Influenza Virus Vaccine Quad IM 3+ YRS 2014-09-05 00:00:00 Completed [facility] Influenza Virus Vaccine Quad IM 3+ YRS Unknown Completed [facility] Pneumococcal Polysaccharide, PPSV23 (PNEUMOVAX) Unknown Completed [facility] TD, NOS Unknown Completed [facility] SARS-COV-2 COVID-19 MODERNA 12+ YRS VACCINE Unknown Completed [facility] SARS-COV-2 COVID-19 MODERNA 12+ YRS VACCINE Unknown Completed [facility] Pneumococcal 20 Conjugate, PCV20 (Prevnar 20) Unknown Completed [facility] Influenza Virus Vaccine Quad IM 3+ YRS Unknown Completed [facility] Pneumococcal Polysaccharide, PPSV23 (PNEUMOVAX) Unknown Completed [facility] TD, NOS Unknown Completed [facility] SARS-COV-2 COVID-19 MODERNA 12+ YRS VACCINE Unknown Completed [facility] SARS-COV-2 COVID-19 MODERNA 12+ YRS VACCINE Unknown Completed [facility] Pneumococcal 20 Conjugate, PCV20 (Prevnar 20) Unknown Completed [facility] Influenza Virus Vaccine Quad IM 3+ YRS Unknown Completed [facility] Pneumococcal Polysaccharide, PPSV23 (PNEUMOVAX) Unknown Completed [facility] TD, NOS Unknown Completed [facility] SARS-COV-2 COVID-19 MODERNA 12+ YRS VACCINE Unknown Completed [facility] SARS-COV-2 COVID-19 MODERNA 12+ YRS VACCINE Unknown Completed [facility] Pneumococcal 20 Conjugate, PCV20 (Prevnar 20) Unknown Completed [facility] Vital Signs Vital Name Observation Time Observation Value Comments S ource Systolic blood pressure 2023-04-19 15:37:00 126 mm[Hg] [facility] Diastolic blood pressure 2023-04-19 15:37:00 83 mm[Hg] [facility] Heart rate 2023-04-19 15:37:00 94 /min [facility] Respiratory rate 2023-04-19 15:35:00 18 /min [facility] Body height 2023-04-19 15:35:00 177.8 cm [facility] Body weight 2023-04-19 15:35:00 59.138 kg [facility] BMI 2023-04-19 15:35:00 18.71 kg/m2 [facility] Oxygen saturation in Arterial blood by Pulse oximetry 2023-04-19 15:35:00 94 /min [facility] Systolic blood pressure 2023-03-01 20:27:00 143 mm[Hg] [facility] Diastolic blood pressure 2023-03-01 20:27:00 87 mm[Hg] [facility] Heart rate 2023-03-01 20:27:00 99 /min [facility] Body height 2023-03-01 20:27:00 177.8 cm [facility] Body weight 2023-03-01 20:27:00 57.153 kg [facility] BMI 2023-03-01 20:27:00 18.08 kg/m2 [facility] Oxygen saturation in Arterial blood by Pulse oximetry 2023-03-01 20:27:00 99 /min [facility] Systolic blood pressure 2023-02-18 16:17:00 144 mm[Hg] [facility] Diastolic blood pressure 2023-02-18 16:17:00 68 mm[Hg] [facility] Heart rate 2023-02-18 16:17:00 55 /min [facility] Body temperature 2023-02-18 16:17:00 36.06 Tia [facility] Respiratory rate 2023-02-18 16:17:00 18 /min [facility] Oxygen saturation in Arterial blood by Pulse oximetry 2023-02-18 16:17:00 100 /min [facility] Body weight 2023-02-18 07:50:00 58.968 kg [facility] BMI 2023-02-18 07:50:00 18.65 kg/m2 [facility] Body height 2023-02-16 00:31:00 177.8 cm [facility] Oxygen saturation in Arterial blood by Pulse oximetry 2023-02-07 19:29:00 99 /min [facility] Systolic blood pressure 2023-02-07 19:27:00 103 mm[Hg] [facility] Diastolic blood pressure 2023-02-07 19:27:00 75 mm[Hg] [facility] Heart rate 2023-02-07 19:27:00 104 /min [facility] Body temperature 2023-02-07 19:27:00 36.39 Tia [facility] Respiratory rate 2023-02-07 19:27:00 22 /min [facility] Body weight 2023-02-07 19:27:00 72.576 kg [facility] BMI 2023-02-07 19:27:00 22.96 kg/m2 [facility] Heart rate 2023-02-05 20:17:00 85 /min [facility] Respiratory rate 2023-02-05 20:17:00 18 /min [facility] Oxygen saturation in Arterial blood by Pulse oximetry 2023-02-05 20:17:00 100 /min [facility] Systolic blood pressure 2023-02-05 19:53:35 98 mm[Hg] [facility] Diastolic blood pressure 2023-02-05 19:53:35 71 mm[Hg] [facility] Body temperature 2023-02-05 19:51:00 36.5 Tia [facility] Body height 2023-02-05 19:51:00 177.8 cm [facility] Body weight 2023-02-05 19:51:00 72.576 kg [facility] BMI 2023-02-05 19:51:00 22.96 kg/m2 [facility] Heart rate 2023-02-04 20:31:00 76 /min [facility] Respiratory rate 2023-02-04 20:31:00 18 /min [facility] Oxygen saturation in Arterial blood by Pulse oximetry 2023-02-04 20:31:00 97 /min [facility] Systolic blood pressure 2023-02-04 20:15:00 126 mm[Hg] [facility] Diastolic blood pressure 2023-02-04 20:15:00 98 mm[Hg] [facility] Body temperature 2023-02-04 20:15:00 36.83 Tia [facility] Body weight 2023-02-04 20:15:00 72.576 kg [facility] BMI 2023-02-04 20:15:00 22.96 kg/m2 [facility] Systolic blood pressure 2023-02-03 23:00:00 100 mm[Hg] [facility] Diastolic blood pressure 2023-02-03 23:00:00 65 mm[Hg] [facility] Heart rate 2023-02-03 23:00:00 115 /min [facility] Respiratory rate 2023-02-03 23:00:00 20 /min [facility] Oxygen saturation in Arterial blood by Pulse oximetry 2023-02-03 23:00:00 97 /min [facility] Body temperature 2023-02-03 22:44:00 36.72 Tia [facility] Body weight 2023-02-03 22:44:00 72.576 kg [facility] BMI 2023-02-03 22:44:00 22.96 kg/m2 [facility] Systolic blood pressure 2023-02-03 20:02:00 128 mm[Hg] [facility] Diastolic blood pressure 2023-02-03 20:02:00 81 mm[Hg] [facility] Heart rate 2023-02-03 20:02:00 88 /min [facility] Respiratory rate 2023-02-03 20:02:00 25 /min [facility] Oxygen saturation in Arterial blood by Pulse oximetry 2023-02-03 20:02:00 94 /min [facility] Body temperature 2023-02-03 18:18:00 36.61 Tia [facility] Body weight 2023-02-03 17:41:00 72.576 kg [facility] BMI 2023-02-03 17:41:00 22.96 kg/m2 [facility] Heart rate 2023-02-02 22:49:00 107 /min [facility] Respiratory rate 2023-02-02 22:49:00 20 /min [facility] Oxygen saturation in Arterial blood by Pulse oximetry 2023-02-02 22:49:00 94 /min [facility] Systolic blood pressure 2023-02-02 22:32:00 102 mm[Hg] [facility] Diastolic blood pressure 2023-02-02 22:32:00 74 mm[Hg] [facility] Body temperature 2023-02-02 21:58:32 35.83 Tia [facility] Body height 2023-02-02 21:54:00 177.8 cm [facility] Body weight 2023-02-02 21:54:00 72.576 kg [facility] BMI 2023-02-02 21:54:00 22.96 kg/m2 [facility] Systolic blood pressure 2023-01-31 21:00:00 140 mm[Hg] [facility] Diastolic blood pressure 2023-01-31 21:00:00 72 mm[Hg] [facility] Heart rate 2023-01-31 21:00:00 89 /min [facility] Respiratory rate 2023-01-31 21:00:00 20 /min [facility] Oxygen saturation in Arterial blood by Pulse oximetry 2023-01-31 21:00:00 97 /min [facility] Body temperature 2023-01-31 18:50:00 36.72 Tia [facility] Body weight 2023-01-31 18:50:00 72.576 kg [facility] BMI 2023-01-31 18:50:00 22.96 kg/m2 [facility] Systolic blood pressure 2023-01-31 16:09:00 130 mm[Hg] [facility] Diastolic blood pressure 2023-01-31 16:09:00 72 mm[Hg] [facility] Heart rate 2023-01-31 16:09:00 99 /min [facility] Body temperature 2023-01-31 16:09:00 36.39 Tia [facility] Respiratory rate 2023-01-31 16:09:00 18 /min [facility] Body height 2023-01-31 16:09:00 177.8 cm [facility] Body weight 2023-01-31 16:09:00 72.576 kg [facility] BMI 2023-01-31 16:09:00 22.96 kg/m2 [facility] Oxygen saturation in Arterial blood by Pulse oximetry 2023-01-31 16:09:00 97 /min [facility] Systolic blood pressure 2023-01-31 14:50:00 134 mm[Hg] [facility] Diastolic blood pressure 2023-01-31 14:50:00 72 mm[Hg] [facility] Heart rate 2023-01-31 14:50:00 85 /min [facility] Body temperature 2023-01-31 14:50:00 36.39 Tia [facility] Respiratory rate 2023-01-31 14:50:00 20 /min [facility] Body weight 2023-01-31 14:50:00 72.576 kg [facility] BMI 2023-01-31 14:50:00 22.96 kg/m2 [facility] Oxygen saturation in Arterial blood by Pulse oximetry 2023-01-31 14:50:00 100 /min [facility] Respiratory rate 2023-01-29 13:40:00 20 /min [facility] Oxygen saturation in Arterial blood by Pulse oximetry 2023-01-29 13:40:00 100 /min [facility] Systolic blood pressure 2023-01-29 13:06:00 123 mm[Hg] [facility] Diastolic blood pressure 2023-01-29 13:06:00 76 mm[Hg] [facility] Heart rate 2023-01-29 13:06:00 97 /min [facility] Body temperature 2023-01-29 13:06:00 36.61 Tia [facility] Body height 2023-01-29 13:06:00 177.8 cm [facility] Body weight 2023-01-29 13:06:00 72.576 kg [facility] BMI 2023-01-29 13:06:00 22.96 kg/m2 [facility] Systolic blood pressure 2023-01-27 11:47:00 115 mm[Hg] [facility] Diastolic blood pressure 2023-01-27 11:47:00 75 mm[Hg] [facility] Heart rate 2023-01-27 11:47:00 100 /min [facility] Body temperature 2023-01-27 11:47:00 35.78 Tia [facility] Respiratory rate 2023-01-27 11:47:00 28 /min [facility] Oxygen saturation in Arterial blood by Pulse oximetry 2023-01-27 11:47:00 99 /min [facility] Body height 2023-01-27 09:57:00 177.8 cm [facility] Body weight 2023-01-27 09:57:00 72.576 kg [facility] BMI 2023-01-27 09:57:00 22.96 kg/m2 [facility] Heart rate 2023-01-24 20:55:00 88 /min [facility] Oxygen saturation in Arterial blood by Pulse oximetry 2023-01-24 20:55:00 93 /min [facility] Respiratory rate 2023-01-24 20:52:00 22 /min [facility] Systolic blood pressure 2023-01-24 20:30:00 128 mm[Hg] [facility] Diastolic blood pressure 2023-01-24 20:30:00 69 mm[Hg] [facility] Body temperature 2023-01-24 17:24:00 36.67 Tia [facility] Body height 2023-01-24 17:24:00 177.8 cm [facility] Body weight 2023-01-24 17:24:00 72.576 kg [facility] BMI 2023-01-24 17:24:00 22.96 kg/m2 [facility] Systolic blood pressure 2023-01-24 01:00:00 129 mm[Hg] [facility] Diastolic blood pressure 2023-01-24 01:00:00 76 mm[Hg] [facility] Heart rate 2023-01-24 01:00:00 77 /min [facility] Respiratory rate 2023-01-24 01:00:00 18 /min [facility] Oxygen saturation in Arterial blood by Pulse oximetry 2023-01-24 01:00:00 99 /min [facility] Body temperature 2023-01-24 00:02:00 35.61 Tia warm blankets applied [facility] Body weight 2023-01-24 00:02:00 58.968 kg [facility] BMI 2023-01-24 00:02:00 18.65 kg/m2 [facility] Heart rate 2023-01-22 23:46:00 93 /min [facility] Respiratory rate 2023-01-22 23:46:00 20 /min [facility] Oxygen saturation in Arterial blood by Pulse oximetry 2023-01-22 23:46:00 100 /min [facility] Systolic blood pressure 2023-01-22 23:21:00 146 mm[Hg] [facility] Diastolic blood pressure 2023-01-22 23:21:00 93 mm[Hg] [facility] Body temperature 2023-01-22 23:21:00 36.72 Tia [facility] Body weight 2023-01-22 23:21:00 58.968 kg [facility] BMI 2023-01-22 23:21:00 18.65 kg/m2 [facility] Heart rate 2023-01-21 21:57:00 84 /min [facility] Respiratory rate 2023-01-21 21:57:00 18 /min [facility] Oxygen saturation in Arterial blood by Pulse oximetry 2023-01-21 21:57:00 97 /min [facility] Systolic blood pressure 2023-01-21 21:00:00 103 mm[Hg] [facility] Diastolic blood pressure 2023-01-21 21:00:00 61 mm[Hg] [facility] Body temperature 2023-01-21 19:24:00 36.56 Tia [facility] Body weight 2023-01-21 19:24:00 58.968 kg [facility] BMI 2023-01-21 19:24:00 18.65 kg/m2 [facility] Systolic blood pressure 2023-01-19 21:00:00 111 mm[Hg] [facility] Diastolic blood pressure 2023-01-19 21:00:00 64 mm[Hg] [facility] Heart rate 2023-01-19 21:00:00 85 /min [facility] Body temperature 2023-01-19 21:00:00 36.56 Tia [facility] Respiratory rate 2023-01-19 21:00:00 17 /min [facility] [facility] O[facility] saturation in Arterial blood by Pulse oximetry 2023-01-19 21:00:00 98 /min [facility] Body height 2023-01-19 06:22:00 177.8 cm [facility] Body weight 2023-01-19 06:22:00 58.968 kg [facility] BMI 2023-01-19 06:22:00 18.65 kg/m2 [facility] Systolic blood pressure 2023-01-17 12:05:00 116 mm[Hg] [facility] Diastolic blood pressure 2023-01-17 12:05:00 69 mm[Hg] [facility] Heart rate 2023-01-17 12:05:00 100 /min [facility] Respiratory rate 2023-01-17 12:05:00 24 /min [facility] Oxygen saturation in Arterial blood by Pulse oximetry 2023-01-17 12:05:00 93 /min [facility] Body temperature 2023-01-17 10:59:00 35.39 Tia [facility] Body height 2023-01-17 10:59:00 177.8 cm [facility] Body weight 2023-01-17 10:59:00 58.968 kg [facility] BMI 2023-01-17 10:59:00 18.65 kg/m2 [facility] Systolic blood pressure 2023-01-07 19:38:00 122 mm[Hg] [facility] Diastolic blood pressure 2023-01-07 19:38:00 86 mm[Hg] [facility] Heart rate 2023-01-07 19:38:00 110 /min [facility] Respiratory rate 2023-01-07 19:38:00 16 /min [facility] Body height 2023-01-07 19:38:00 177.8 cm [facility] Body weight 2023-01-07 19:38:00 59.966 kg [facility] BMI 2023-01-07 19:38:00 18.97 kg/m2 [facility] Systolic blood pressure 2022-12-26 18:00:00 118 mm[Hg] [facility] Diastolic blood pressure 2022-12-26 18:00:00 79 mm[Hg] [facility] Heart rate 2022-12-26 18:00:00 93 /min [facility] Respiratory rate 2022-12-26 18:00:00 20 /min [facility] Oxygen saturation in Arterial blood by Pulse oximetry 2022-12-26 18:00:00 95 /min [facility] Body temperature 2022-12-26 15:49:00 36.11 Tia [facility] Body height 2022-12-26 15:49:00 177.8 cm [facility] Body weight 2022-12-26 15:49:00 72.576 kg [facility] BMI 2022-12-26 15:49:00 22.96 kg/m2 [facility] Respiratory rate 2022-12-12 16:45:00 18 /min [facility] Oxygen saturation in Arterial blood by Pulse oximetry 2022-12-12 16:45:00 99 /min [facility] Systolic blood pressure 2022-12-12 16:11:00 135 mm[Hg] [facility] Diastolic blood pressure 2022-12-12 16:11:00 80 mm[Hg] [facility] Heart rate 2022-12-12 16:11:00 77 /min [facility] Body temperature 2022-12-12 16:11:00 35.89 Tia [facility] Body weight 2022-12-12 08:50:00 65 kg [facility] BMI 2022-12-12 08:50:00 20.56 kg/m2 [facility] Body height 2022-12-11 04:23:00 177.8 cm [facility] Heart rate 2022-12-04 12:33:00 95 /min [facility] Respiratory rate 2022-12-04 12:33:00 17 /min [facility] Oxygen saturation in Arterial blood by Pulse oximetry 2022-12-04 12:33:00 98 /min [facility] Systolic blood pressure 2022-12-04 12:20:00 125 mm[Hg] [facility] Diastolic blood pressure 2022-12-04 12:20:00 74 mm[Hg] [facility] Body temperature 2022-12-04 12:20:00 36.61 Tia [facility] Body height 2022-12-02 05:16:00 177.8 cm [facility] Body weight 2022-12-02 05:16:00 72.576 kg [facility] BMI 2022-12-02 05:16:00 22.96 kg/m2 [facility] Systolic blood pressure 2022-12-01 13:00:00 114 mm[Hg] [facility] Diastolic blood pressure 2022-12-01 13:00:00 78 mm[Hg] [facility] Heart rate 2022-12-01 13:00:00 88 /min [facility] Respiratory rate 2022-12-01 13:00:00 20 /min [facility] Oxygen saturation in Arterial blood by Pulse oximetry 2022-12-01 13:00:00 98 /min [facility] Body temperature 2022-12-01 10:13:00 36.67 Tia [facility] Body height 2022-12-01 10:13:00 177.8 cm [facility] Body weight 2022-12-01 10:13:00 72.576 kg [facility] BMI 2022-12-01 10:13:00 22.96 kg/m2 [facility] Systolic blood pressure 2022-11-28 17:00:00 154 mm[Hg] [facility] Diastolic blood pressure 2022-11-28 17:00:00 106 mm[Hg] [facility] Heart rate 2022-11-28 17:00:00 87 /min [facility] Respiratory rate 2022-11-28 17:00:00 23 /min [facility] Oxygen saturation in Arterial blood by Pulse oximetry 2022-11-28 17:00:00 96 /min [facility] Body temperature 2022-11-28 16:00:00 36.78 Tia [facility] Body weight 2022-11-27 12:00:00 67.132 kg [facility] BMI 2022-11-27 12:00:00 21.24 kg/m2 [facility] Body height 2022-11-27 08:39:00 177.8 cm [facility] Systolic blood pressure 2022-11-19 10:48:00 152 mm[Hg] [facility] Diastolic blood pressure 2022-11-19 10:48:00 88 mm[Hg] [facility] Heart rate 2022-11-19 10:48:00 92 /min [facility] Respiratory rate 2022-11-19 10:48:00 16 /min [facility] Oxygen saturation in Arterial blood by Pulse oximetry 2022-11-19 10:48:00 98 /min [facility] Body temperature 2022-11-19 08:20:00 36.22 Tia [facility] Body height 2022-11-19 08:20:00 177.8 cm [facility] Body weight 2022-11-19 08:20:00 67.132 kg [facility] BMI 2022-11-19 08:20:00 21.24 kg/m2 [facility] Systolic blood pressure 2022-11-19 02:18:57 152 mm[Hg] [facility] Diastolic blood pressure 2022-11-19 02:18:57 91 mm[Hg] [facility] Heart rate 2022-11-19 02:18:57 109 /min [facility] Respiratory rate 2022-11-19 02:18:57 22 /min [facility] Oxygen saturation in Arterial blood by Pulse oximetry 2022-11-19 02:18:57 95 /min [facility] Body temperature 2022-11-19 02:17:11 36.78 Tia [facility] Body height 2022-11-19 00:52:00 177.8 cm [facility] Body weight 2022-11-19 00:52:00 67.132 kg [facility] BMI 2022-11-19 00:52:00 21.24 kg/m2 [facility] Heart rate 2022-11-11 17:35:00 75 /min [facility] Respiratory rate 2022-11-11 17:35:00 18 /min [facility] Oxygen saturation in Arterial blood by Pulse oximetry 2022-11-11 17:35:00 95 /min [facility] Systolic blood pressure 2022-11-11 17:25:00 130 mm[Hg] [facility] Diastolic blood pressure 2022-11-11 17:25:00 71 mm[Hg] [facility] Body temperature 2022-11-11 17:25:00 35.94 Tia [facility] Body weight 2022-11-11 09:34:00 77.52 kg [facility] BMI 2022-11-11 09:34:00 24.52 kg/m2 [facility] Body height 2022-11-09 19:30:00 177.8 cm [facility] Systolic blood pressure 2020-12-29 15:24:00 96 mm[Hg] [facility] Diastolic blood pressure 2020-12-29 15:24:00 66 mm[Hg] [facility] Heart rate 2020-12-29 15:24:00 71 /min [facility] Body temperature 2020-12-29 15:24:00 36.33 Tia [facility] Body weight 2020-12-29 15:24:00 72.576 kg [facility] BMI 2020-12-29 15:24:00 22.96 kg/m2 [facility] Oxygen saturation in Arterial blood by Pulse oximetry 2020-12-29 15:24:00 95 /min [facility] Systolic blood pressure 2020-12-18 19:07:00 117 mm[Hg] [facility] Diastolic blood pressure 2020-12-18 19:07:00 77 mm[Hg] [facility] Heart rate 2020-12-18 19:07:00 77 /min [facility] Body temperature 2020-12-18 19:07:00 36.22 Tia [facility] Respiratory rate 2020-12-18 19:07:00 18 /min [facility] Body height 2020-12-18 19:07:00 177.8 cm [facility] Body weight 2020-12-18 19:07:00 73.211 kg [facility] BMI 2020-12-18 19:07:00 23.16 kg/m2 [facility] Systolic blood pressure 2020-12-12 18:00:00 109 mm[Hg] [facility] Diastolic blood pressure 2020-12-12 18:00:00 74 mm[Hg] [facility] Heart rate 2020-12-12 18:00:00 78 /min [facility] Respiratory rate 2020-12-12 18:00:00 20 /min [facility] Oxygen saturation in Arterial blood by Pulse oximetry 2020-12-12 18:00:00 96 /min [facility] Body temperature 2020-12-12 16:33:00 37.28 Tia [facility] Body height 2020-12-12 16:33:00 177.8 cm [facility] Body weight 2020-12-12 16:33:00 70.308 kg [facility] BMI 2020-12-12 16:33:00 22.24 kg/m2 [facility] Systolic blood pressure 2020-12-08 18:55:00 125 mm[Hg] [facility] Diastolic blood pressure 2020-12-08 18:55:00 82 mm[Hg] [facility] Heart rate 2020-12-08 18:55:00 75 /min [facility] Body temperature 2020-12-08 18:55:00 36.56 Tia [facility] Respiratory rate 2020-12-08 18:55:00 16 /min [facility] Body height 2020-12-08 18:55:00 177.8 cm [facility] Body weight 2020-12-08 18:55:00 73.12 kg [facility] BMI 2020-12-08 18:55:00 23.13 kg/m2 [facility] Systolic blood pressure 2019-05-04 04:21:00 127 mm[Hg] [facility] Diastolic blood pressure 2019-05-04 04:21:00 86 mm[Hg] [facility] Heart rate 2019-05-04 04:21:00 99 /min [facility] Respiratory rate 2019-05-04 04:21:00 26 /min [facility] Body height 2019-05-04 04:21:00 177.8 cm [facility] Body weight 2019-05-04 04:21:00 72.576 kg [facility] BMI 2019-05-04 04:21:00 22.96 kg/m2 [facility] Oxygen saturation in Arterial blood by Pulse oximetry 2019-05-04 04:21:00 99 /min [facility] Systolic blood pressure 2019-05-04 04:21:00 127 mm[Hg] [facility] Diastolic blood pressure 2019-05-04 04:21:00 86 mm[Hg] [facility] Heart rate 2019-05-04 04:21:00 99 /min [facility] Respiratory rate 2019-05-04 04:21:00 26 /min [facility] Body height 2019-05-04 04:21:00 177.8 cm [facility] Body weight 2019-05-04 04:21:00 72.576 kg [facility] BMI 2019-05-04 04:21:00 22.96 kg/m2 [facility] Oxygen saturation in Arterial blood by Pulse oximetry 2019-05-04 04:21:00 99 /min [facility] Procedures Procedure Date / Time Performed Performing Clinician Source MEDICATION CORRESPONDENCE 2023-07-08 05:01:00 Do ctor Unassigned, [place] [facility] CONSENT/REFUSAL FOR DIAGNOSIS AND TREATMENT 2023-03-01 19:49:30 Doctor Unassigned, [place] [facility] TRANSTHORACIC ECHO (TTE) COMPLETE W/ CONTRAST 2023-02-16 13:56:56 Dedrick Toth [facility] TROPONIN I 2023-02-16 11:32:00 Dedrick Toth Uni [facility] COMP. METABOLIC PANEL ([id number]) 2023-02-16 11:32:00 Dedrick Toht [facility] CBC WITH DIFF 2023-02-16 11:32:00 Dedrick Toth Un [facility] N-TERMINAL PRO-BNP 2023-02-16 11:32:00 Dedrick Toth [facility] URINALYSIS 2023-02-15 21:18:00 [facility] RHYTHM STRIP 2023-02-15 20:15:35 Francisca Bryant [facility] XR CHEST 1 VW 2023-02-15 20:14:30 [facility] AC PANEL 21 + LACTIC ACID 2023-02-15 20:02:00 Francisca Bryant [facility] MAGNESIUM 2023-02-15 20:01:00 [facility] 2023-02-15 20:01:00 Francisca Bryant [facility] COMP. METABOLIC PANEL ([id number]) 2023-02-15 20:01:00 Francisca Bryant [facility] CBC WITH DIFF 2023-02-15 20:01:00 Francisca Bryant [facility] ASSIGNMENT OF BENEFITS 2023-02-07 19:52:07 Docto r Unassigned, [place] [facility] CONSENT/REFUSAL FOR DIAGNOSIS AND TREATMENT 2023-02-07 19:51:03 Doctor Unassigned, [place] [facility] CONSENT/REFUSAL FOR DIAGNOSIS AND TREATMENT 2023-02-04 19:51:56 Doctor Unassigned, [place] [facility] TROPONIN I 2023-01-31 20:21:00 Rachael Flowers [facility] COMP. METABOLIC PANEL ([id number]) 2023-01-31 20:21:00 Rachael Flowers [facility] ETHANOL 2023-01-31 20:21:00 Rachael Flowers [facility] CBC WITH DIFF 2023-01-31 20:21:00 Rachael Flowers [facility] N-TERMINAL PRO-BNP 2023-01-31 20:21:00 Fernando Flowers [facility] CONSENT/REFUSAL FOR DIAGNOSIS AND TREATMENT 2023-01-31 18:39:05 Doctor Unassigned, [place] [facility] CONSENT/REFUSAL FOR DIAGNOSIS AND TREATMENT 2023-01-31 15:54:08 Doctor Unassigned, [place] [facility] CONSENT/REFUSAL FOR DIAGNOSIS AND TREATMENT 2023-01-31 14:29:18 Doctor Unassigned, [place] [facility] ACUTE CARE VENOUS BLOOD GAS 2023-01-27 10:45:00 Bessie Oswald [facility] TROPONIN I 2023-01-27 10:16:00 Bessie Oswald [facility] BASIC METABOLIC PANEL (NA, K, CL, CO2, GLUCOSE, BUN, CREATININE, CA) 2023-01-27 10:16:00 Bessie Oswald [facility] CBC WITH DIFF 2023-01-27 10:16:[address] [facility] N-TERMINAL PRO-BNP 2023-01-27 10:16:00 Bessie Oswald [facility] URINALYSIS 2023-01-24 20:23:00 Stephanie Almonte [facility] CT HEAD WO CONTRAST 2023-01-24 19:38:00 Stephanie Almonte [facility] AC ABG + LACTIC ACID 2023-01-24 18:37:00 Stephanie Almonte [facility] AMMONIA, PLASMA 2023-01-24 18:19:00 Stephanie Almonte as [facility] RAPID STREP SCREEN FOR GROUP A 2023-01-24 18:19:00 Stephanie Almonte [facility] COVID-19 (ID NOW RAPID TESTING) 2023-01-24 18:19:00 Stephanie Almonte [facility] TROPONIN I 2023-01-24 17:52:00 Stephanie Almonte [facility] COMP. METABOLIC PANEL ([id number]) 2023-01-24 17:52:00 Stephanie Almonte [facility] ETHANOL 2023-01-24 17:52:00 Stephanie Almonte [facility] CBC WITH DIFF 2023-01-24 17:52:00 Stephanie Almonte [facility] N-TERMINAL PRO-BNP 2023-01-24 17:52:00 [facility] COMP. METABOLIC PANEL ([id number]) 2023-01-21 20:58:00 Singer [facility] TROPONIN I 2023-01-21 20:05:00 [facility] CBC WITH DIFF 2023-01-21 20:05:00 Singer Louis [facility] N-TERMINAL PRO-BNP 2023-01-21 20:05:00 Singer [facility] AC PANEL 21 + LACTIC ACID 2023-01-19 08:31:00 Zechariah Hackett [facility] D-DIMER 2023-01-19 08:17:[address] [facility] BASIC METABOLIC PANEL (NA, K, CL, CO2, GLUCOSE, BUN, CREATININE, CA) 2023-01-19 08:15:00 Iza Varma [facility] CBC WITH DIFF 2023-01-19 08:15:00 Iza Varma [facility] N-TERMINAL PRO-BNP 2023-01-19 08:15:00 Agapito Hackett [facility] EKG-12 LEAD 2023-01-17 12:23:[address] [facility] XR CHEST 1 VW 2023-01-17 11:25:05 [facility] 2023-[facility]-17 11:04:[address] [facility] COMP. METABOLIC PANEL ([id number]) 2023-01-17 11:04:00 Marisol Devlin [facility] CBC WITH DIFF 2023-01-17 11:04:00 Marisol Devlin [facility] N-TERMINAL PRO-BNP 2023-01-17 11:04:00 Marisol Devlin [facility] COMP. METABOLIC PANEL ([id number]) 2022-12-26 17:23:00 Iza Varma [facility] XR CHEST 1 VW 2022-12-26 16:39:21 [facility] URINE DRUG (IMMUNOASSAY) - COMPREHENSIVE DRUG SCREEN 2022-12-26 16:29:00 Iza Varma [facility] URINALYSIS 2022-12-26 16:29:00 Iza Varma [facility] CBC WITH DIFF 2022-12-26 16:28:00 [facility] MAGNESIUM 2022-12-12 08:55:00 Travis Zeng [facility] BASIC METABOLIC PANEL (NA, K, CL, CO2, GLUCOSE, BUN, CREATININE, CA) 2022-12-12 08:55:00 Travis Zeng [facility] LIPID PANEL ([id number])(TOTAL CHOLESTEROL, TRIGLYCERIDES, HDL) 2022-12-12 08:55:00 Travis Zeng [facility] N-TERMINAL PRO-BNP 2022-12-12 08:55:00 Travis Zeng [facility] MAGNESIUM 2022-12-11 08:30:00 Dedrick Toth [facility] OSMOLALITY, SERUM OR PLASMA 2022-12-11 08:30:00 Dedrick Toth [facility] FREE T4 2022-12-11 08:30:00 Dedrick Toth [facility] BASIC METABOLIC PANEL (NA, K, CL, CO2, GLUCOSE, BUN, CREATININE, CA) 2022-12-11 08:30:00 Dedrick Toth [facility] CBC WITH DIFF 2022-12-11 08:30:00 [facility] 2022-12-11 08:30:00 Dedrick Toth [facility] OSMOLALITY URINE 2022-12-11 03:24:00 Dedrick Toth [facility] SODIUM, URINE RANDOM 2022-12-11 03:24:00 Gunnar Toth [facility] URINALYSIS 2022-12-11 01:15:[address] [facility] HB ECG ROUTINE & RHYTHM STRIP 2022-12-11 00:38:04 Louis Hong [facility] CT HEAD WO CONTRAST 2022-12-11 00:32:23 Kameron Hong [facility] XR CHEST 1 VW 2022-12-11 00:29:20 Singer [facility] TROPONIN I 2022-12-11 00:08:00 [facility] COMP. METABOLIC PANEL ([id number]) 2022-12-11 00:08:00 Louis Hong [facility] ETHANOL 2022-12-11 00:08:[address] [facility] CBC WITH DIFF 2022-12-11 00:08:00 Louis Hong [facility] N-TERMINAL PRO-BNP 2022-12-11 00:08:00 Louis Hong [facility] LACTIC ACID WHOLE BLOOD 2022-12-11 00:03:00 Angelita Hong [facility] AUTHORIZATION FOR RELEASE OF PHI 2022-12-09 05:01:00 Doctor Unassigned, [place] [facility] BASIC METABOLIC PANEL (NA, K, CL, CO2, GLUCOSE, BUN, CREATININE, CA) 2022-12-04 10:43:00 [facility] CBC WITH DIFF 2022-12-04 10:43:[address] [facility] OSMOLALITY URINE 2022-12-03 17:05:00 Lisseth De Santiago [facility] SODIUM, URINE RANDOM 2022-12-03 17:05:00 Haley De Santiago [facility] MAGNESIUM 2022-12-03 10:20:00 Clive Contreras [facility] BASIC METABOLIC PANEL (NA, K, CL, CO2, GLUCOSE, BUN, CREATININE, CA) 2022-12-03 10:20:00 [facility] CBC WITH DIFF 2022-12-03 10:20:[address] [facility] BASIC METABOLIC PANEL (NA, K, CL, CO2, GLUCOSE, BUN, CREATININE, CA) 2022-12-02 05:27:00 Carlo Maki [facility] CONSENT/REFUSAL FOR DIAGNOSIS AND TREATMENT 2022-12-02 05:08:30 Doctor Unassigned, [place] [facility] HOSPITAL ADMISSION 2022-12-02 05:01:00 Doctor Un assigned, [place] [facility] COVID-19 (ID NOW RAPID TESTING) 2022-12-01 13:01:00 Ernesto Piper [facility] XR CHEST 1 VW 2022-12-01 12:40:25 Marisol Devlin [facility] EKG-12 LEAD 2022-12-01 12:17:26 Marisol Devlin [facility] ACUTE CARE ARTERIAL BLOOD GAS 2022-12-01 12:06:00 Marisol Devlin [facility] TROPONIN I 2022-12-01 11:51:00 Marisol Devlin [facility] BASIC METABOLIC PANEL (NA, K, CL, CO2, GLUCOSE, BUN, CREATININE, CA) 2022-12-01 11:51:00 Marisol Devlin [facility] CBC WITH DIFF 2022-12-01 11:51:00 Marisol Devlin [facility] BASIC METABOLIC PANEL (NA, K, CL, CO2, GLUCOSE, BUN, CREATININE, CA) 2022-11-28 16:51:00 Leila Chapa [facility] URIC ACID 2022-11-28 08:14:00 Reyna [facility] THYROID STIMULATING HORMONE 2022-11-28 08:14:00 Reyna [facility] BASIC METABOLIC PANEL (NA, K, CL, CO2, GLUCOSE, BUN, CREATININE, CA) 2022-11-28 08:14:00 Leila Chapa [facility] CBC WITH DIFF 2022-11-28 08:14:00 María Diaz [facility] BASIC METABOLIC PANEL (NA, K, CL, CO2, GLUCOSE, BUN, CREATININE, CA) 2022-11-28 04:16:00 María Diaz [facility] BASIC METABOLIC PANEL (NA, K, CL, CO2, GLUCOSE, BUN, CREATININE, CA) 2022-11-28 00:33:00 Leila Chapa [facility] BASIC METABOLIC PANEL (NA, K, CL, CO2, GLUCOSE, BUN, CREATININE, CA) 2022-11-27 19:55:00 María Diaz [facility] MRSA / MSSA SCREEN BY ERIKA NARANJO 2022-11-27 09:21:00 María Diaz [facility] OSMOLALITY, SERUM OR PLASMA 2022-11-27 09:10:00 María iDaz [facility] OSMOLALITY URINE 2022-11-27 09:04:00 María Diaz [facility] BASIC METABOLIC PANEL (NA, K, CL, CO2, GLUCOSE, BUN, CREATININE, CA) 2022-11-27 09:04:00 María Diaz [facility] URINE DRUG (IMMUNOASSAY) - COMPREHENSIVE DRUG SCREEN 2022-11-27 09:04:00 María Diaz [facility] URINALYSIS 2022-11-27 09:04:00 María Diaz [facility] CREATININE, URINE RANDOM 2022-11-27 09:04:00 Ben Diaz [facility] SODIUM, URINE RANDOM 2022-11-27 09:04:00 María Diaz [facility] XR CHEST 1 VW 2022-11-27 06:15:54 [facility] MAGNESIUM 2022-11-27 05:33:00 María Diaz [facility] TROPONIN I 2022-11-27 05:33:00 Bessie Oswald [facility] COMP. METABOLIC PANEL ([id number]) 2022-11-27 05:33:00 Bessie Oswald [facility] ETHANOL 2022-11-27 05:33:00 Bessie Oswald [facility] CBC WITH DIFF 2022-11-27 05:33:00 Bessie Oswald [facility] GLYCOSYLATED HEMOGLOBIN (A1C) 2022-11-27 05:33:00 Leila Chapa [facility] N-TERMINAL PRO-BNP 2022-11-27 05:33:00 Bessie Oswald [facility] HB ECG ROUTINE & RHYTHM STRIP 2022-11-27 05:31:54 Bessie Oswald [facility] COMP. METABOLIC PANEL ([id number]) 2022-11-19 08:44:00 [facility] [facility] CBC WITH DIFF 2022-11-19 08:44:00 [facility] N-TERMINAL PRO-BNP 2022-11-19 08:44:00 Iza Varma [facility] BASIC METABOLIC PANEL (NA, K, CL, CO2, GLUCOSE, BUN, CREATININE, CA) 2022-11-11 10:52:00 Iza Eden [facility] CBC WITH DIFF 2022-11-11 10:52:00 Iza Eden [facility] BASIC METABOLIC PANEL (NA, K, CL, CO2, GLUCOSE, BUN, CREATININE, CA) 2022-11-11 02:16:00 [place] [facility] BASIC METABOLIC PANEL (NA, K, CL, CO2, GLUCOSE, BUN, CREATININE, CA) 2022-11-10 22:45:00 [place] [facility] BASIC METABOLIC PANEL (NA, K, CL, CO2, GLUCOSE, BUN, CREATININE, CA) 2022-11-10 17:27:00 [place] [facility] BASIC METABOLIC PANEL (NA, K, CL, CO2, GLUCOSE, BUN, CREATININE, CA) 2022-11-10 11:49:00 [place] [facility] MAGNESIUM 2022-11-10 07:14:00 Travis Zeng [facility] BASIC METABOLIC PANEL (NA, K, CL, CO2, GLUCOSE, BUN, CREATININE, CA) 2022-11-10 07:14:00 [place] [facility] CBC WITH DIFF 2022-11-10 07:14:00 [place] [facility] XR CHEST 1 VW 2022-11-09 07:53:00 Marisol Devlin [facility] LIPASE 2022-11-09 07:53:00 Marisol Devlin [facility] TROPONIN I 2022-11-09 07:53:00 Marisol Devlin [facility] COMP. METABOLIC PANEL (93472) 2022-11-09 07:53:00 Marisol Devlin [facility] CBC WITH DIFF 2022-11-09 07:53:00 Marisol Devlin [facility] N-TERMINAL PRO-BNP 2022-11-09 07:53:00 Marisol Devlin [facility] ACUTE CARE ARTERIAL BLOOD GAS 2022-11-09 07:50:00 Marisol Devlin [facility] HB ECG ROUTINE & RHYTHM STRIP 2022-11-09 07:39:47 Marisol Devlin [facility] ASSIGNMENT OF BENEFITS 2021-05-20 19:26:54 Duran eduardo Unassigned, [place] [facility] POCT URINALYSIS AUTO 2020-12-18 19:04:00 Zeus Turner [facility] CT ABDOMEN PELVIS W CONTRAST 2020-12-12 17:25:03 Francisca Bryant [facility] BASIC METABOLIC PANEL (NA, K, CL, CO2, GLUCOSE, BUN, CREATININE, CA) 2020-12-12 16:47:00 Francisca Bryant [facility] CBC WITH DIFF 2020-12-12 16:47:00 [facility] 2020-12-12 16:47:00 Francisca [facility] NOTICE OF PRIVACY PRACTICES 2020-12-12 16:28:57 Doctor Unassigned, [place] [facility] CONSENT/REFUSAL FOR DIAGNOSIS AND TREATMENT 2020-12-12 16:28:23 Doctor Unassigned, [place] [facility] POCT URINALYSIS AUTO 2020-12-08 18:56:00 Jeanette Mcdaniel [facility] CONSENT/REFUSAL FOR DIAGNOSIS AND TREATMENT 2020-12-08 18:26:17 Doctor Unassigned, [place] [facility] ASSIGNMENT OF BENEFITS 2020-12-08 18:25:58 Duran eduardo Unassigned, [place] [facility] AUTHORIZATION FOR RELEASE OF PHI 2020-02-20 05:01:00 Doctor Unassigned, [place] [facility] NOTICE OF PRIVACY PRACTICES 2019-05-04 04:10:29 Doctor Unassigned, [place] [facility] CONSENT/REFUSAL FOR DIAGNOSIS AND TREATMENT 2019-05-04 04:10:09 Doctor Unassigned, [place] [facility] Encounters Start Date/Time End Date/Time Encounter Type Admission Type Attending [facility] Care Facility Care Department Encounter ID Source 2021-07-19 08:46:33 Emergency [facility] [id number] [facility] 2023-07-21 10:00:00 2023-07-21 10:00:00 Outpatient R AUSTYN MARYNOMI CLIFTON [facility] [id number] [facility] 2023-07-15 00:00:00 2023-07-15 00:00:00 Case Management Nomi Mary [facility] 1.20.114 350.1.13.10 4.2.7.2.686 [id number] [facility] 2023-07-08 00:00:00 2023-07-08 00:00:00 [facility] 1.2.114 350.1.13.10 4.2.7.2.686 [id number] [facility] 2023-07-08 00:00:00 2023-07-08 00:00:00 Orders Only Doctor Unassigned, [place] [facility] 1.20.114 350.1.13.10 4.2.7.2.686 [id number] [facility] 2023-04-22 00:00:00 2023-04-22 00:00:00 Outpatient R MARY YENNIVLADISLAVYENNI CLIFTONVATim [facility] [id number] [facility] 2023-04-19 10:00:00 2023-04-19 10:53:24 Outpatient R NOMI MARY [facility] [id number] [facility] 2023-04-19 10:00:00 2023-04-19 10:53:24 Office Visit Mathew Yennindtim [facility] 1.2.114 350.1.13.10 4.2.7.2.686 [id number] [facility] 2023-04-19 00:00:00 2023-04-19 00:00:00 Patient Outreach Marika Monge 1.2.114 350.1.13.10 4.2.7.2.686 [id number] [facility] 2023-03-01 16:30:00 2023-03-01 17:00:00 [facility] 1.284.114 350.1.13.10 4.2.7.2.686 [id number] [facility] 2023-03-01 16:30:00 2023-03-01 16:30:00 Outpatient R ADRIANO [facility] [id number] [facility] 2023-03-01 00:00:00 2023-03-01 00:00:00 Orders Only Doctor Unassigned, [place] [facility] 1..114 350.1.13.10 4.2.7.2.686 [id number] [facility] 2023-03-01 00:00:00 2023-03-01 00:00:00 Refill Mily Goodwin REPLACED BY [facility] 1.84.114 350.1.13.10 4.2.7.2.686 [id number] [facility] 2023-02-21 00:00:00 2023-02-21 00:00:00 Transition of Care Taylor Frye 1.2114 350.1.13.10 4.2.7.2.686 [id number] [facility] 2023-02-15 14:41:00 2023-02-18 16:11:00 Inpatient X TRAVIS ZENG [facility] [id number] [facility] 2023-02-15 14:41:00 2023-02-18 16:11:00 Hospital Encounter Iza Varma Sandra J Oville, Jelani [facility] 1.2.114 350.1.13.10 4.2.7.2.686 [id number] [facility] 2023-02-07 14:30:00 2023-02-07 16:01:00 Emergency X PRADIP AUSTIN [facility] [id number] [facility] 2023-02-07 14:30:00 2023-02-07 16:01:00 Emergency Pradip Austin [facility] 1.2.840.114 350.1.13.10 4.2.7.2.686 [id number] [facility] 2023-02-07 10:20:00 2023-02-07 10:20:00 Outpatient CARL ALDRIDGE CHRISTINE [facility] [id number] [facility] 2023-02-05 14:53:00 2023-02-05 16:10:00 Emergency X CHOHERMINIA [facility] ERT [id number] [facility] 2023-02-05 14:53:00 2023-02-05 16:10:00 Emergency Herminia Cho [facility] 1.2.840.114 350.1.13.10 4.2.7.2.686 [id number] [facility] 2023-02-04 15:26:00 2023-02-04 16:25:00 Emergency X FRANCISCA BRYANT [facility] E[facility] [id number] [facility] 2023-02-04 15:26:00 2023-02-04 16:25:00 Emergency Francisca Bryant [facility] 1.2.840.114 350.1.13.10 4.2.7.2.686 [id number] [facility] 2023-02-03 17:46:00 2023-02-03 18:47:00 Emergency X LOUIS HONG [facility] ERT [id number] [facility] 2023-02-03 17:46:00 2023-02-03 18:47:00 Emergency X LOUIS HONG [facility] ERT [id number] [facility] 2023-02-03 17:46:00 2023-02-03 18:47:00 Emergency Louis Hong [facility] 1.2.840.114 350.1.13.10 4.2.7.2.686 [id number] [facility] 2023-02-03 12:43:00 2023-02-03 15:04:00 Emergency Bessie Oswald [facility] 1.2.840.114 350.1.13.10 4.2.7.2.686 [id number] [facility] 2023-02-02 16:49:00 2023-02-02 18:10:00 Emergency X LOUIS HONG [facility] [id number] [facility] 2023-02-02 16:49:00 2023-02-02 18:10:00 Emergency Louis Hong [facility] 1.2.840.114 350.1.13.10 4.2.7.2.686 [id number] [facility] 2023-01-31 13:55:00 2023-01-31 16:50:00 Emergency X RACHAEL FLOWERS [facility] [id number] [facility] 2023-01-31 13:55:00 2023-01-31 16:50:00 Emergency X RACHAEL FLOWERS [facility] ERT [id number] [facility] 2023-01-31 13:55:00 2023-01-31 16:50:00 Emergency Rachael Flowers [facility] 1.2.840.114 350.1.13.10 4.2.7.2.686 [id number] [facility] 2023-01-31 11:11:00 2023-01-31 12:12:00 Emergency X LEOBARDO SLOAN [facility] E[facility] [id number] [facility] 2023-01-31 11:11:00 2023-01-31 12:12:00 Emergency Leobardo Sloan [facility] 1.2.840.114 350.1.13.10 4.2.7.2.686 [id number] [facility] 2023-01-31 09:51:00 2023-01-31 10:16:[address] [facility] 1.2.840.114 350.1.13.10 4.2.7.2.686 [id number] [facility] 2023-01-29 08:08:00 2023-01-29 10:00:00 Emergency X HERMINIA CHO [facility] ERT [id number] [facility] 2023-01-29 08:08:00 2023-01-29 10:00:00 Emergency Herminia Cho [facility] 1.2.840.114 350.1.13.10 4.2.7.2.686 [id number] [facility] 2023-01-27 04:50:00 2023-01-27 07:03:00 Emergency X SIMONEBESSIE Chandler [facility] ERT [id number] [facility] 2023-01-27 04:50:00 2023-01-27 07:03:00 Emergency Bessie Oswald [facility] 1.2.840.114 350.1.13.10 4.2.7.2.686 [id number] [facility] 2023-01-27 00:00:00 2023-01-27 00:00:00 Telephone Nomi Mary [facility] 1.2.840.114 350.1.13.10 4.2.7.2.686 [id number] [facility] 2023-01-24 12:28:00 2023-01-24 16:16:00 Emergency X STEPHANIE ALMONTE [facility] E[facility] [id number] [facility] 2023-01-24 12:28:00 2023-01-24 16:16:00 Emergency Stephanie Almonte [facility] 1.2.840.114 350.1.13.10 4.2.7.2.686 [id number] [facility] 2023-01-23 19:02:00 2023-01-23 20:36:00 Emergency X IZA VARMA [facility] E[facility] [id number] [facility] 2023-01-23 19:02:00 2023-01-23 20:36:00 Emergency Iza Varma [facility] 1.2.840.114 350.1.13.10 4.2.7.2.686 [id number] [facility] 2023-01-22 18:24:00 2023-01-22 19:55:00 Emergency X IZA VARMA [facility] E[facility] [id number] [facility] 2023-01-22 18:24:00 2023-01-22 19:55:00 Emergency Iza Varma [facility] 1.2.840.114 350.1.13.10 4.2.7.2.686 [id number] [facility] 2023-01-21 14:20:00 2023-01-21 18:14:00 Emergency LOUIS THOMPSON [facility] ERT [id number] [facility] 2023-01-21 14:20:00 2023-01-21 18:14:00 Emergency Louis [facility] 1.2.840.114 350.1.13.10 4.2.7.2.686 [id number] [facility] 2023-01-20 00:00:00 2023-01-20 00:00:00 Transition of Care Taylor Frye 1.2.840.114 350.1.13.10 4.2.7.2.686 [id number] [facility] 2023-01-19 01:15:00 2023-01-19 19:40:00 Hospital Encounter [facility] , Kathia Varma, Iza Hackett, María Escobar [facility] 1.2.840.114 350.1.13.10 4.2.7.2.686 [id number] [facility] 2023-01-17 05:57:00 2023-01-17 07:37:00 Emergency X MARISOL DEVLIN [facility] E[facility] [id number] [facility] 2023-01-17 05:57:00 2023-01-17 07:37:00 Emergency Marisol Devlin [facility] 1.2.840.114 350.1.13.10 4.2.7.2.686 [id number] [facility] 2023-01-17 05:57:00 2023-01-17 07:37:00 Emergency X MARISOL DEVLIN [facility] E[facility] [id number] [facility] 2023-01-10 00:00:00 2023-01-10 00:00:00 Letter (Out) Herminia Oh REPLACED BY [facility] 1..840.114 350.1.13.10 4.2.7.2.686 [id number] [facility] 2023-01-07 14:30:00 2023-01-07 15:25:56 Outpatient R HERMINIA OH [facility] [id number] [facility] 2023-01-07 14:30:00 2023-01-07 15:25:56 Office Visit Herminia Oh REPLACED BY [facility] 1.840.114 350.1.13.10 4.2.7.2.686 [id number] [facility] 2022-12-26 10:50:00 2022-12-26 14:12:00 Emergency X IZA VARMA [facility] E[facility] [id number] [facility] 2022-12-26 10:50:00 2022-12-26 14:12:00 Emergency Iza Varma S [facility] 1.84.114 350.1.13.10 4.2.7.2.686 [id number] [facility] 2022-12-14 11:30:00 2022-12-14 11:30:00 Outpatient R NOMI MARY SHIVATim [facility] [id number] [facility] 2022-12-14 00:00:00 2022-12-14 00:00:00 Transition of Care Taylor Frye [facility] 1.840.114 350.1.13.10 4.2.7.2.686 [id number] [facility] 2022-12-10 18:49:00 2022-12-12 14:35:00 Outpatient X TRAVIS ZENG [facility] [id number] [facility] 2022-12-10 18:49:00 2022-12-12 14:35:00 Hospital Encounter Louis Hong Mohammad A. Oville, Jelani [facility] 1.840.114 350.1.13.10 4.2.7.2.686 [id number] [facility] 2022-12-10 00:00:00 2022-12-10 00:00:00 Case Management Nomi Mary [facility] 1.2.840.114 350.1.13.10 4.2.7.2.686 [id number] [facility] 2022-12-10 00:00:00 2022-12-10 00:00:00 Transition of Care Cecy Caro 1.2.840.114 350.1.13.10 4.2.7.2.686 [id number] [facility] 2022-12-09 00:00:00 2022-12-09 00:00:00 Orders Only Doctor Unassigned, [place] [facility] 1.2.840.114 350.1.13.10 4.2.7.2.686 [id number] [facility] 2022-12-06 00:00:00 2022-12-06 00:00:00 Transition of Care Taylor Frye 1.2.840.114 350.1.13.10 4.2.7.2.686 [id number] [facility] 2022-12-02 00:13:00 2022-12-04 12:30:00 Hospital Encounter Carlo Maki, Abi Contreras, [facility] ([facility]) 1.2.840.114 350.1.13.10 4.2.7.2.686 [id number] [facility] 2022-12-01 05:32:00 2022-12-01 09:08:00 Emergency ERNESTO SHANE CHARLES [facility] [id number] [facility] 2022-12-01 05:32:00 2022-12-01 09:08:00 Emergency Marisol Devlin Charles Davis, Elizabeth [facility] 1.2.840.114 350.1.13.10 4.2.7.2.686 [id number] [facility] 2022-12-01 05:32:00 2022-12-01 09:08:00 Emergency U ERNESTO PIPER CHARLES [facility] E[facility] [id number] [facility] 2022-11-26 22:55:00 2022-11-28 13:50:00 Outpatient X DHARMESH LEILA [facility] [id number] [facility] 2022-11-26 22:55:00 2022-11-28 13:50:00 Hospital Encounter Bessie Oswald David Abdullah, Yaman [facility] 1.840.114 350.1.13.10 4.2.7.2.686 [id number] [facility] 2022-11-19 02:17:00 2022-11-19 05:12:00 Emergency X VARMAIZA [facility] [id number] [facility] 2022-11-19 02:17:00 2022-11-19 05:12:00 Emergency Sandro Varmaosbaldo Chandler [facility] 1.840.114 350.1.13.10 4.2.7.2.686 [id number] [facility] 2022-11-18 18:52:00 2022-11-18 20:29:00 Emergency X FRANCISCA BRYANT [facility] [id number] [facility] 2022-11-18 18:52:00 2022-11-18 20:29:00 Emergency Francisca Bryant [facility] 1.2840.114 350.1.13.10 4.2.7.2.686 [id number] [facility] 2022-11-17 00:00:00 2022-11-17 00:00:00 Telephone [facility] 1.2840.114 350.1.13.10 4.2.7.2.686 [id number] [facility] 2022-11-12 00:00:00 2022-11-12 00:00:00 Transition of Care Frye Taylor B GARY GIORDANO 1.2840.114 350.1.13.10 4.2.7.2.686 [id number] [facility] 2022-11-09 01:32:00 2022-11-11 13:35:00 Inpatient X DAVEYRADHA TRAVIS [facility] [id number] [facility] 2022-11-09 01:32:00 2022-11-11 13:35:00 Hospital Encounter [facility] 1.2840.114 350.1.13.10 4.2.7.2.686 [id number] [facility] 2021-05-22 00:00:00 2021-05-22 00:00:00 Telephone Jeanette Mcdaniel [facility] 1.20.114 350.1.13.10 4.2.7.2.686 [id number] [facility] 2021-05-20 14:28:38 2021-05-20 14:43:38 Flying Instructor Visit Pob, Adc Lab Main Jimy [facility] 1.20.114 350.1.13.10 4.2.7.2.686 [id number] [facility] 2021-05-20 14:30:00 2021-05-20 14:30:00 [id number] 2021-05-20 00:00:00 2021-05-20 00:00:00 Orders Only Doctor Unassigned, [place] [facility] 1.20.114 350.1.13.10 4.2.7.2.686 [id number] [facility] 2021-05-20 00:00:00 2021-05-20 00:00:00 Telephone [facility]okul [facility] 1.2.840.114 350.1.13.10 4.2.7.2.686 [id number] [facility] 2020-12-29 10:12:45 2020-12-29 11:07:51 Office Visit JimyGokul [facility] 1.2.840.114 350.1.13.10 4.2.7.2.686 [id number] [facility] 2020-12-29 10:15:00 2020-12-29 10:15:00 Outpatient R GOKUL TURNER [facility] [id number] [facility] 2020-12-18 13:36:17 2020-12-18 14:58:35 Office Visit Gokul Turner Rm, Adc Surg Spec Procedure [facility] 1.2.840.114 350.1.13.10 4.2.7.2.686 [id number] [facility] 2020-12-18 14:00:00 2020-12-18 14:00:00 Outpatient R GOKUL TURNER [facility] [id number] [facility] 2020-12-16 00:00:00 2020-12-16 00:00:00 Outpatient R JEANETTE MCDANIEL [facility] [id number] [facility] 2020-12-16 00:00:00 2020-12-16 00:00:00 Telephone Jeanette Mcdaniel [facility] 1.2.840.114 350.1.13.10 4.2.7.2.686 [id number] [facility] 2020-12-12 11:36:00 2020-12-12 13:42:00 Emergency SylvainFrancisca Trina [facility] 1.2.840.114 350.1.13.10 4.2.7.2.686 [id number] [facility] 2020-12-12 00:00:00 2020-12-12 00:00:00 Telephone Jeanette Mcdaniel [facility] 1.2.840.114 350.1.13.10 4.2.7.2.686 [id number] [facility] 2020-12-08 13:28:10 2020-12-08 14:09:14 Office Visit Jeanette Mcdaniel [facility] 1.2.840.114 350.1.13.10 4.2.7.2.686 [id number] [facility] 2020-12-08 13:30:00 2020-12-08 13:30:00 Outpatient R YUNG MCDANIELELA [facility] [id number] [facility] 2020-12-08 00:00:00 2020-12-08 00:00:00 Orders Only Doctor Unassigned, [place] [facility] 1.2840.114 350.1.13.10 4.2.7.2.686 [id number] [facility] 2020-12-07 00:00:00 2020-12-07 00:00:00 Nurse Triage Herimnia Perez [facility] 1.2.840.114 350.1.13.10 4.2.7.2.686 [id number] [facility] 2020-02-20 00:00:00 2020-02-20 00:00:00 Orders Only Doctor Unassigned, [place] [facility] 1.2.840.114 350.1.13.10 4.2.7.2.686 [id number] 2020-02-20 00:00:00 2020-02-20 00:00:00 Orders Only Doctor Unassigned, [place] [facility] 1.2.840.114 350.1.13.10 4.2.7.2.686 [id number] [facility] 2019-08-28 08:25:33 2019-08-28 11:54:00 Emergency X HERMINIA CHO [facility] ERT [id number] [facility] 2019-08-24 01:43:17 2019-08-24 03:52:00 Emergency X [place] [facility] ERT [id number] [facility] 2019-05-03 23:28:18 2019-05-04 00:27:00 Emergency Ramesh Encinas [facility] 1.2.840.114 350.1.13.10 4.2.7.2.686 [id number] [facility] 2019-05-03 23:28:18 2019-05-04 00:27:00 Emergency Ramesh Encinas [facility] 1.2.840.114 350.1.13.10 4.2.7.2.686 [id number] 2019-05-03 00:00:00 2019-05-03 00:00:00 Orders Only Doctor Unassigned, [place] [facility] 1.2.840.114 350.1.13.10 4.2.7.2.686 [id number] [facility] 2019-05-03 00:00:00 2019-05-03 00:00:00 Orders Only Doctor Unassigned, [place] [facility] 1.2.840.114 350.1.13.10 4.2.7.2.686 [id number] Results Test Description Test Time Test Comments Results Result Co [facility] (64098)2023-02-15 21:00:57* Test Item Value Reference Range Interpretation Comme nts NA (test code = 8275939268) 133 mmol/L 135-145 L K (test code = 9048129516) 4.5 mmol/L 3.5-5.0 CL (test code = 3477136473) 90 mmol/L 98-108 L CO2 TOTAL (test code = 2107693367) 40 mmol/L 23-31 H AGAP (test code = 0637231029) 3 2-16 BUN (test code = 3035482017) 25 mg/dL 7-23 H GLUCOSE (test code = 2831259559) 107 mg/dL 70-110 CREATININE (test code = 5503423667) 0.88 mg/dL 0.60-1.25 TOTAL BILI (test code = 6769856371) 1.6 mg/dL 0.1-1.1 H CALCIUM (test code = 2288630353) 8.9 mg/dL 8.6-10.6 T PROTEIN (test code = 2627633028) 6.1 g/dL 6.3-8.2 L ALBUMIN (test code = 6448796967) 3.7 g/dL 3.5-5.0 ALK PHOS (test code = 2416438821) 56 U/L 34-122 ALTv (test code = 1742-6) 14 U/L 5-50 AST(SGOT) (test code = 8664772910) 12 U/L 13-40 L eGFR (test code = 7718689636) 87.2 mL/min/1.73m2 OMAYRA (test code = OMAYRA) [...] imaging tests). Lab Interpretation (test code = 61345-2) Abnormal [facility]30 21:00:57* Test Item Value Reference Range Interpretation Comme nts MAGNESIUM (test code = 9162820231) 2.0 mg/dL 1.7-2.4 Lab Interpretation (test cod e = 40062-3) Normal [facility] WITH [id number] 20:53:39* Test Item Value Reference Range Interpretation Comme nts WBC (test code = 6690-2) 9.03 See_Comment [Automated [employer]] The system which generated this result transmitted reference range: 4.20 - 10.70 10*3/?L. The reference range was not used to interpret this result as normal/abnormal. RBC (test code = 789-8) 4.50 See_Comment [Automated [employer]] The system which generated this result transmitted [...] 33.0 g/dL 31.2-35.0 RDW-SD (test code = 51636-9) 50.1 fL 38.5-51.6 RDW-CV (test code = 788-0) 13.6 % 12.1-15.4 PLT (test code = 777-3) 223 See_Comment [Automated messa ge] The system which generated this result transmitted reference range: 150 - 328 10*3/?L. The reference range was not used to interpret this result as normal/abnormal. MPV (test code = 69824-7) 12.1 fL 9.8-13.0 NRBC/100 WBC (test code = 9681933622) 0.0 See_Comment [Automated [employer] ssage] The system which generated this result transmitted reference range: 0.0 - 10.0 /100 WBCs. The reference range was not used to interpret this result as normal/abnormal. NRBC x10^3 (test code = 4459940348) See_Comment [Automated messa ge] The system which generated this result transmitted reference range: 10*3/?L. The reference range was not used to interpret this result as normal/abnormal. GRAN MAT (NEUT) % (test code = 770-8) 72.8 % IMM GRAN % (test code = 0238402429) 0.90 % LYMPH % (test code = 736-9) 17.7 % MONO % (test code = 5905-5) 7.4 % EOS % (test code = 713-8) 0.9 % BASO % (test code = 706-2) 0.3 % GRAN MAT x10^3(ANC) (test code = 8148821338) 6.57 10*3/uL 1.99-6.95 IMM GRAN x10^3 (test code = 0755021045) 0.08 10*3/uL 0.00-0.06 H LYMPH x10^3 (test code = 731-0) 1.60 10*3/uL 1.09-3.23 MONO x10^3 (test code = 742-7) 0.67 10*3/uL 0.36-1.02 EOS x10^3 (test code = 711-2) 0.08 10*3/uL 0.06-0.53 BASO x10^3 (test code = 704-7) 0.03 10*3/uL 0.01-0.09 Lab Interpretation (test code = 09440-9) [facility] [id number] 20:11:20* Test Item Value Reference Range Interpretation Comme nts PH (test code = 8628336079) 7.33 7.32-7.42 PCO2 ERVIN (test code = 3848777126) 75 See_Comment H [Automated messa ge] The system which generated this result transmitted reference range: 41 - 51 mmHg. The reference range was not used to interpret this result as normal/abnormal. PO2 ERVIN (test code = 5617851010) 20 See_Comment L [Automated messa ge] The system which generated this result transmitted reference range: 25 - 40 mmHg. The reference range was not used to interpret this result as normal/abnormal. HCO3 ERVIN (test code = 1773936829) 39 See_Comment H [Automated messa ge] The system which generated this result transmitted reference range: 24 - 28 mEq/L. The reference range was not used to interpret this result as normal/abnormal. AC VBE(BEAKER) (test code = 9647115110) 9.1 mEq/L THB ERVIN (test code = 9419531657) 15.9 g/dL 13.5-18.0 %O2HB ERVIN (test code = 8140493975) 30.0 % 52.0-63.0 L %COHB ERVIN (test code = 5871940910) 4.1 % 0.0-1.5 H %METHB ERVIN (test code = 6956527389) 0.3 % 0.4-1.5 L VOL%O2 ERVIN (test code = 9608668422) 6.7 % 6.0-12.0 NA (test code = 8157956917) 137 mmol/L 135-145 K+ (test code = 3546004076) 4.5 mmol/L 3.5-5.0 AC CA IONZ (test code = 2305335802) 4.60 mg/dL 4.50-5.30 GLUCOSE (test code = 9737160882) 113 mg/dL 70-110 H LACTIC ACID (test code = 8662150297) 1.65 mmol/L 0.50-2.20 Lab Interpretation (test code = 66763-8) [facility] [id number] 21:20:05* Test Item Value Reference Range Interpretation Comme nts TROPONIN I (test code = 3098777645) 0.005 ng/mL <=0.034 OMAYRA (test code = [...] of biotin. Lab Interpretation (test code = 72390-0) [facility] [id number] 21:17:24* Test Item Value Reference Range Interpretation Comme nts NT-proBNP (test code = 0601786471) 712 pg/mL <=125 H OMAYRA (test code = OMAYRA) Biotin has been reported to cause a negative bias, interpret results relative to patient's use of biotin. Lab Interpretation (test code = 19559-7) [facility] 21:13:47 ALCOHOL<10mg/dL01/31/2023 4:13 PM [facility]<10 Xtgekffd99-466 Toxic>100 Depression of [place] AUDIT[place]>400 [facility]atalities [facility]COM[facility] METABOLIC PANEL (16290)2023-01-31 21:10:01* Test Item Value Reference Range Interpretation Comme nts NA (test code = 9699208670) 142 mmol/L 135-145 K (test code = 5934630567) 4.7 mmol/L 3.5-5.0 CL (test code = 9222978683) 99 mmol/L 98-108 CO2 TOTAL (test code = 8207921475) 37 mmol/L 23-31 H AGAP (test code = 9184137393) 6 2-16 BUN (test code = 0413324247) 30 mg/dL 7-23 H GLUCOSE (test code = 3264588060) 100 mg/dL 70-110 CREATININE (test code = 3564176432) 0.61 mg/dL 0.60-1.25 TOTAL BILI (test code = 1721406448) 0.6 mg/dL 0.1-1.1 CALCIUM (test code = 7715682787) 8.8 mg/dL 8.6-10.6 T PROTEIN (test code = 2936226125) 5.9 g/dL 6.3-8.2 L ALBUMIN (test code = 0684891763) 3.5 g/dL 3.5-5.0 ALK PHOS (test code = 2613874178) 42 U/L 34-122 ALTv (test code = 1742-6) 16 U/L 5-50 AST(SGOT) (test code = 2931267970) 12 U/L 13-40 L eGFR (test code = 0462525170) 133.1 mL/min/1.73m2 OMAYRA (test code = OMAYRA) [...] imaging tests). Lab Interpretation (test code = 76069-2) Abnormal [facility] WITH [id number] 20:59:58* Test Item Value Reference Range Interpretation [...] g/dL 31.2-35.0 L RDW-SD (test code = 31943-2) 61.6 fL 38.5-51.6 H RDW-CV (test code = 788-0) 16.2 % 12.1-15.4 H PLT (test code = 777-3) 250 See_Comment [Automated message] The system which generated this result transmitted reference range: 150 - 328 10*3/?L. The reference range was not used to interpret this result as normal/abnormal. MPV (test code = 34479-0) 10.5 fL 9.8-13.0 NRBC/100 WBC (test code = 1436573182) 0.0 See_Comment [Automated message] The system which generated this result transmitted reference range: 0.0 - 10.0 /100 WBCs. The reference range was not used to interpret this result as normal/abnormal. NRBC x10^3 (test code = 6844912869) See_Comment [Automated message] The system which generated this result transmitted reference range: 10*3/?L. The reference range was not used to interpret this result as normal/abnormal. GRAN MAT (NEUT) % (test code = 770-8) 90.9 % IMM GRAN % (test code = 6099503553) 1.20 % LYMPH % (test code = 736-9) 3.9 % MONO % (test code = 5905-5) 3.8 % EOS % (test code = 713-8) 0.0 % BASO % (test code = 706-2) 0.2 % GRAN MAT x10^3(ANC) (test code = 1333336709) 11.83 10*3/uL 1.99-6.95 H IMM GRAN x10^3 (test code = 5250975015) 0.16 10*3/uL 0.00-0.06 H LYMPH x10^3 (test code = 731-0) 0.51 10*3/uL 1.09-3.23 L MONO x10^3 (test code = 742-7) 0.49 10*3/uL 0.36-1.02 EOS x10^3 (test code = 711-2) 0.06-0.53 L BASO x10^3 (test code = 704-7) 0.03 10*3/uL 0.01-0.09 Lab Interpretation (test code = 71888-0) [facility] [id number] 11:16:36* Test Item Value Reference Range Interpretation Comme nts TROPONIN I (test code = 4646123285) 0.002 ng/mL <=0.034 OMAYRA (test code = [...] of biotin. Lab Interpretation (test code = 54655-3) Normal [facility] [id number] 11:13:18* Test Item Value Reference Range Interpretation Comme nts NT-proBNP (test code = 6395077739) 112 pg/mL <=125 OMAYRA (test code = OMAYRA) Biotin has been reported to cause a negative bias, interpret results relative to patient's use of biotin. Lab Interpretation (test code = 29426-7) Normal [facility] METABOLIC PANEL (NA, K, CL, CO2, GLUCOSE, BUN, CREATININE, CA)2023-01-27 11:04:56* Test Item Value Reference Range Interpretation Comme nts NA (test code = 6273705990) 136 mmol/L 135-145 K (test code = 6431291649) 4.1 mmol/L 3.5-5.0 CL (test code = 2857668188) 96 mmol/L 98-108 L CO2 TOTAL (test code = 0242056537) 34 mmol/L 23-31 H AGAP (test code = 5834918230) 6 2-16 BUN (test code = 4222523935) 22 mg/dL 7-23 GLUCOSE (test code = 2064922012) 117 mg/dL 70-110 H CREATININE (test code = 2136960694) 0.55 mg/dL 0.60-1.25 L CALCIUM (test code = 8503553192) 8.4 mg/dL 8.6-10.6 L eGFR (test code = 7993642079) 150.0 mL/min/1.73m2 OMAYRA (test code = OMAYRA) [...] imaging tests). Lab Interpretation (test code = 86276-7) Abnormal [facility] WITH [id number] 10:38:33* Test Item Value Reference Range Interpretation Comme nts WBC (test code = 6690-2) 9.56 See_Comment [Automated [employer]] The system which generated this result transmitted reference range: 4.20 - 10.70 10*3/?L. The reference range was not used to interpret this result as normal/abnormal. RBC (test code = 789-8) 4.31 See_Comment [Automated [employer]] The system which generated this result transmitted [...] 31.8 g/dL 31.2-35.0 RDW-SD (test code = 99414-3) 56.7 fL 38.5-51.6 H RDW-CV (test code = 788-0) 15.3 % 12.1-15.4 PLT (test code = 777-3) 220 See_Comment [Automated [employer]] The system which generated this result transmitted reference range: 150 - 328 10*3/?L. The reference range was not used to interpret this result as normal/abnormal. MPV (test code = 98486-3) 10.6 fL 9.8-13.0 NRBC/100 WBC (test code = 6562706273) 0.0 See_Comment [Automated me ssage] The system which generated this result transmitted reference range: 0.0 - 10.0 /100 WBCs. The reference range was not used to interpret this result as normal/abnormal. NRBC x10^3 (test code = 2472994273) See_Comment [Automated messa ge] The system which generated this result transmitted reference range: 10*3/?L. The reference range was not used to interpret this result as normal/abnormal. GRAN MAT (NEUT) % (test code = 770-8) 60.0 % IMM GRAN % (test code = 8926566904) 0.70 % LYMPH % (test code = 736-9) 26.5 % MONO % (test code = 5905-5) 11.4 % EOS % (test code = 713-8) 0.9 % BASO % (test code = 706-2) 0.5 % GRAN MAT x10^3(ANC) (test code = 0489359703) 5.73 10*3/uL 1.99-6.95 IMM GRAN x10^3 (test code = 4779209651) 0.07 10*3/uL 0.00-0.06 H LYMPH x10^3 (test code = 731-0) 2.53 10*3/uL 1.09-3.23 MONO x10^3 (test code = 742-7) 1.09 10*3/uL 0.36-1.02 H EOS x10^3 (test code = 711-2) 0.09 10*3/uL 0.06-0.53 BASO x10^3 (test code = 704-7) 0.05 10*3/uL 0.01-0.09 Lab Interpretation (test code = 81441-2) [facility]normal [facility] CentralAMMON[facility], [id number] 18:51:59* Test Item Value Reference Range Interpretation Comme nts AMMONIA (test code = 7228244143) 9-33 L Lab Interpretation (test cod e = 92063-9) [facility]normal [facility] ABG + LACTIC [id number] 18:40:53* Test Item Value Reference Range Interpretation Comme nts PH (test code = 2) 7.43 7.35-7.45 PCO2 (test code = 4443631816) 53 See_Comment H [Automated messa ge] The system which generated this result transmitted reference range: 35 - 45 mmHg. The reference range was not used to interpret this result as normal/abnormal. PO2 (test code = 1161313723) 49 See_Comment L [Automated messa ge] The system which generated this result transmitted reference range: 80 - 100 mmHg. The reference range was not used to interpret this result as normal/abnormal. HCO3 (test code = 4876049783) 34 See_Comment H [Automated messa ge] The system which generated this result transmitted reference range: 22 - 26 mEq/L. The reference range was not used to interpret this result as normal/abnormal. BE (test code = 4293560292) 7.8 See_Comment H [Automated messa ge] The system which generated this result transmitted reference range: -3.0 - 3.0 mEq/L. The reference range was not used to interpret this result as normal/abnormal. LACTIC ACID (test code = 2389405968) 0.92 mmol/L 0.50-2.20 Lab Interpretation (test code = 19304-1) [facility] CentralTroponin [id number] 18:28:26* Test Item Value Reference Range Interpretation Comme nts TROPONIN I (test code = 8912709613) 0.003 ng/mL <=0.034 OMAYRA (test code = [...] of biotin. Lab Interpretation (test code = 70402-2) Normal [facility]-TERMINAL [id number] 18:25:29* Test Item Value Reference Range Interpretation Comme nts NT-proBNP (test code = 4583831549) 376 pg/mL <=125 H OMAYRA (test code = OMAYRA) Biotin has been reported to cause a negative bias, interpret results relative to patient's use of biotin. Lab Interpretation (test code = 03919-4) Abnormal [facility] Metabolic Panel (60104)2023-01-24 18:24:03* Test Item Value Reference Range Interpretation Comme nts NA (test code = 6338417119) 135 mmol/L 135-145 K (test code = 8566817022) 4.0 mmol/L 3.5-5.0 CL (test code = 7447240499) 90 mmol/L 98-108 L CO2 TOTAL (test code = 6345763077) 43 mmol/L 23-31 H AGAP (test code = 0745284082) 2 2-16 BUN (test code = 8040771872) 12 mg/dL 7-23 GLUCOSE (test code = 8720197827) 92 mg/dL 70-110 CREATININE (test code = 9123016505) 0.58 mg/dL 0.60-1.25 L TOTAL BILI (test code = 1542389808) 1.3 mg/dL 0.1-1.1 H CALCIUM (test code = 4026005087) 8.6 mg/dL 8.6-10.6 T PROTEIN (test code = 7625361190) 6.0 g/dL 6.3-8.2 L ALBUMIN (test code = 1699878608) 3.6 g/dL 3.5-5.0 ALK PHOS (test code = 5972843957) 52 U/L 34-122 ALTv (test code = 1742-6) 17 U/L 5-50 AST(SGOT) (test code = 4243493715) 10 U/L 13-40 L eGFR (test code = 2648543431) 141.1 mL/min/1.73m2 OMAYRA (test code = OMAYRA) [...] imaging tests). Lab Interpretation (test code = 49788-5) [facility] 18:23:38 ALCOHOL<10mg/dL01/24/2023 1:23 PM [facility]<10 Klidgtcl49-077 Toxic>100 Depression of [place] AUD[place]>400 [facility]UnThe [facility] Dporyduudtrp8833-23-69 18:09:00* Test Item Value Reference Range Interpretation Comme nts WBC (test code = 6690-2) 7.84 See_Comment [Automated [employer]] The system which generated this result transmitted reference range: 4.20 - 10.70 10*3/?L. The reference range was not used to interpret this result as normal/abnormal. RBC (test code = 789-8) 4.46 See_Comment [Automated [employer]] The system which generated this result transmitted [...] g/dL 31.2-35.0 L RDW-SD (test code = 66027-8) 59.7 fL 38.5-51.6 H RDW-CV (test code = 788-0) 15.8 % 12.1-15.4 H PLT (test code = 777-3) 239 See_Comment [Automated [employer]] The system which generated this result transmitted reference range: 150 - 328 10*3/?L. The reference range was not used to interpret this result as normal/abnormal. MPV (test code = 97333-1) 10.5 fL 9.8-13.0 NRBC/100 WBC (test code = 8734226008) 0.0 See_Comment [Automated [employer] ssage] The system which generated this result transmitted reference range: 0.0 - 10.0 /100 WBCs. The reference range was not used to interpret this result as normal/abnormal. NRBC x10^3 (test code = 5416063063) See_Comment [Automated [employer]] The system which generated this result transmitted reference range: 10*3/?L. The reference range was not used to interpret this result as normal/abnormal. GRAN MAT (NEUT) % (test code = 770-8) 64.5 % IMM GRAN % (test code = 2690322103) 0.40 % LYMPH % (test code = 736-9) 23.1 % MONO % (test code = 5905-5) 9.8 % EOS % (test code = 713-8) 1.8 % BASO % (test code = 706-2) 0.4 % GRAN MAT x10^3(ANC) (test code = 9097947680) 5.06 10*3/uL 1.99-6.95 IMM GRAN x10^3 (test code = 8939132107) 0.03 10*3/uL 0.00-0.06 LYMPH x10^3 (test code = 731-0) 1.81 10*3/uL 1.09-3.23 MONO x10^3 (test code = 742-7) 0.77 10*3/uL 0.36-1.02 EOS x10^3 (test code = 711-2) 0.14 10*3/uL 0.06-0.53 BASO x10^3 (test code = 704-7) 0.03 10*3/uL 0.01-0.09 Lab Interpretation (test code = 64986-1) Abnormal [facility]. METABOLIC PANEL (99096)2023-01-21 21:33:50* Test Item Value Reference Range Interpretation Comme nts NA (test code = 7714101324) 136 mmol/L 135-145 K (test code = 0425471004) 4.3 mmol/L 3.5-5.0 CL (test code = 8217186567) 95 mmol/L 98-108 L CO2 TOTAL (test code = 5788354430) 38 mmol/L 23-31 H AGAP (test code = 8798304272) 3 2-16 BUN (test code = 2155980783) 17 mg/dL 7-23 GLUCOSE (test code = 5435731914) 102 mg/dL 70-110 CREATININE (test code = 5229698882) 0.62 mg/dL 0.60-1.25 TOTAL BILI (test code = 1586433653) 0.8 mg/dL 0.1-1.1 CALCIUM (test code = 5498087028) 7.8 mg/dL 8.6-10.6 L T PROTEIN (test code = 7050377356) 4.9 g/dL 6.3-8.2 L ALBUMIN (test code = 1276450859) 3.0 g/dL 3.5-5.0 L ALK PHOS (test code = 8652920614) 45 U/L 34-122 ALTv (test code = 1742-6) 13 U/L 5-50 AST(SGOT) (test code = 7907801574) 11 U/L 13-40 L eGFR (test code = 2724217299) 130.6 mL/min/1.73m2 OMAYRA (test code = OMAYRA) [...] imaging tests). Lab Interpretation (test code = 88904-9) [facility] CentralTRANGIENIN [id number] 21:11:45* Test Item Value Reference Range Interpretation Comme nts TROPONIN I (test code = 3882556593) 0.019 ng/mL <=0.034 OMAYRA (test code = [...] of biotin. Lab Interpretation (test code = 86120-4) Normal [facility] [id number]-[id number] 21:08:47* Test Item Value Reference Range Interpretation Comme nts NT-proBNP (test code = 8576323485) 266 pg/mL <=125 H Hemolyzed specimen OMAYRA (test code = OMAYRA) Biotin has been reported to cause a negative bias, interpret results relative to patient's use of biotin. Lab Interpretation (test code = 36459-5) [facility] WITH [id number] 20:40:24* Test Item Value Reference Range Interpretation Comme nts WBC (test code = 6690-2) 6.78 See_Comment [Automated [employer]] The system which generated this result transmitted reference range: 4.20 - 10.70 10*3/?L. The reference range was not used to interpret this result as normal/abnormal. RBC (test code = 789-8) 4.47 See_Comment [Automated [employer]] The system which generated this result transmitted [...] g/dL 31.2-35.0 L RDW-SD (test code = 69164-4) 60.4 fL 38.5-51.6 H RDW-CV (test code = 788-0) 16.2 % 12.1-15.4 H PLT (test code = 777-3) 215 See_Comment [Automated [employer]] The system which generated this result transmitted reference range: 150 - 328 10*3/?L. The reference range was not used to interpret this result as normal/abnormal. MPV (test code = 18163-6) 10.9 fL 9.8-13.0 NRBC/100 WBC (test code = 2428072507) 0.0 See_Comment [Automated me ssage] The system which generated this result transmitted reference range: 0.0 - 10.0 /100 WBCs. The reference range was not used to interpret this result as normal/abnormal. NRBC x10^3 (test code = 9300225002) See_Comment [Automated messa ge] The system which generated this result transmitted reference range: 10*3/?L. The reference range was not used to interpret this result as normal/abnormal. GRAN MAT (NEUT) % (test code = 770-8) 75.4 % IMM GRAN % (test code = 4915897819) 0.40 % LYMPH % (test code = 736-9) 15.3 % MONO % (test code = 5905-5) 7.7 % EOS % (test code = 713-8) 0.9 % BASO % (test code = 706-2) 0.3 % GRAN MAT x10^3(ANC) (test code = 0063925520) 5.11 10*3/uL 1.99-6.95 IMM GRAN x10^3 (test code = 8528365215) 0.03 10*3/uL 0.00-0.06 LYMPH x10^3 (test code = 731-0) 1.04 10*3/uL 1.09-3.23 L MONO x10^3 (test code = 742-7) 0.52 10*3/uL 0.36-1.02 EOS x10^3 (test code = 711-2) 0.06 10*3/uL 0.06-0.53 BASO x10^3 (test code = 704-7) 0.01-0.09 Lab Interpretation (test code = 23363-1) [facility] [id number]-[id number] 08:49:53* Test Item Value Reference Range Interpretation Comme nts NT-proBNP (test code = 9566281613) 158 pg/mL <=125 H OMAYRA (test code = OMAYRA) Biotin has been reported to cause a negative bias, interpret results relative to patient's use of biotin. Lab Interpretation (test code = 41807-7) [facility] CentralD-Uozyi6501-13-81 08:44:10* Test Item Value Reference Range Interpretation Comments D-DIMER (test code = 5230847447) See_Comment [Automated message] The system which generated [...] a diagnosis. Lab Interpretation (test code = 72864-1) Normal [facility] METABOLIC PANEL (NA, K, CL, CO2, GLUCOSE, BUN, CREATININE, CA)2023-01-19 08:41:13* Test Item Value Reference Range Interpretation Comme nts NA (test code = 6082260907) 134 mmol/L 135-145 L K (test code = 8739741598) 5.3 mmol/L 3.5-5.0 H CL (test code = 8306411198) 91 mmol/L 98-108 L CO2 TOTAL (test code = 7728681778) 40 mmol/L 23-31 H AGAP (test code = 8910011355) 3 2-16 BUN (test code = 8827309867) 14 mg/dL 7-23 GLUCOSE (test code = 5592662397) 125 mg/dL 70-110 H CREATININE (test code = 8066803308) 0.64 mg/dL 0.60-1.25 CALCIUM (test code = 9743904312) 8.5 mg/dL 8.6-10.6 L eGFR (test code = 4636639433) 125.9 mL/min/1.73m2 OMAYRA (test code = OMAYRA) [...] imaging tests). Lab Interpretation (test code = 37380-5) Abnormal [facility] WITH [id number] 08:27:33* Test Item Value Reference Range Interpretation Comme nts WBC (test code = 6690-2) 10.04 See_Comment [Automated [employer]] The system which generated this result transmitted reference range: 4.20 - 10.70 10*3/?L. The reference range was not used to interpret this result as normal/abnormal. RBC (test code = 789-8) 4.35 See_Comment [Automated [employer]] The system which generated this result transmitted [...] 31.2 g/dL 31.2-35.0 RDW-SD (test code = 70905-4) 58.4 fL 38.5-51.6 H RDW-CV (test code = 788-0) 15.9 % 12.1-15.4 H PLT (test code = 777-3) 211 See_Comment [Automated messa ge] The system which generated this result transmitted reference range: 150 - 328 10*3/?L. The reference range was not used to interpret this result as normal/abnormal. MPV (test code = 85218-5) 10.2 fL 9.8-13.0 NRBC/100 WBC (test code = 9414896535) 0.0 See_Comment [Automated [employer] ssage] The system which generated this result transmitted reference range: 0.0 - 10.0 /100 WBCs. The reference range was not used to interpret this result as normal/abnormal. NRBC x10^3 (test code = 2781512718) See_Comment [Automated [employer]] The system which generated this result transmitted reference range: 10*3/?L. The reference range was not used to interpret this result as normal/abnormal. GRAN MAT (NEUT) % (test code = 770-8) 81.2 % IMM GRAN % (test code = 9557046219) 0.50 % LYMPH % (test code = 736-9) 10.1 % MONO % (test code = 5905-5) 7.5 % EOS % (test code = 713-8) 0.5 % BASO % (test code = 706-2) 0.2 % GRAN MAT x10^3(ANC) (test code = 9941448774) 8.16 10*3/uL 1.99-6.95 H IMM GRAN x10^3 (test code = 2484669899) 0.05 10*3/uL 0.00-0.06 LYMPH x10^3 (test code = 731-0) 1.01 10*3/uL 1.09-3.23 L MONO x10^3 (test code = 742-7) 0.75 10*3/uL 0.36-1.02 EOS x10^3 (test code = 711-2) 0.05 10*3/uL 0.06-0.53 L BASO x10^3 (test code = 704-7) 0.01-0.09 Lab Interpretation (test code = 55352-6) [id number] 12:09:33* Test Item Value Reference Range Interpretation Comme nts TROPONIN I (test code = 1274485986) 0.004 ng/mL <=0.034 OMAYRA (test code = [...] of biotin. Lab Interpretation (test code = 44967-3) [facility] [id number] 12:06:16* Test Item Value Reference Range Interpretation Comme nts NT-proBNP (test code = 0864944753) 135 pg/mL <=125 H OMAYRA (test code = OMAYRA) Biotin has been reported to cause a negative bias, interpret results relative to patient's use of biotin. Lab Interpretation (test code = 41558-0) [facility] (63039)2023-01-17 11:57:36* Test Item Value Reference Range Interpretation Comme nts NA (test code = 4048428354) 133 mmol/L 135-145 L K (test code = 4668115981) 5.0 mmol/L 3.5-5.0 CL (test code = 9274986310) 91 mmol/L 98-108 L CO2 TOTAL (test code = 6197670621) 33 mmol/L 23-31 H AGAP (test code = 7851388601) 9 2-16 BUN (test code = 7138232905) 10 mg/dL 7-23 GLUCOSE (test code = 1066983595) 104 mg/dL 70-110 CREATININE (test code = 6812098618) 0.63 mg/dL 0.60-1.25 TOTAL BILI (test code = 3322965483) 1.2 mg/dL 0.1-1.1 H CALCIUM (test code = 1560734573) 9.0 mg/dL 8.6-10.6 T PROTEIN (test code = 0961009157) 6.9 g/dL 6.3-8.2 ALBUMIN (test code = 5859298195) 4.4 g/dL 3.5-5.0 ALK PHOS (test code = 8271054415) 76 U/L 34-122 ALTv (test code = 1742-6) 13 U/L 5-50 AST(SGOT) (test code = 9375582162) 13 U/L 13-40 eGFR (test code = 9000755620) 128.2 mL/min/1.73m2 OMAYRA (test code = OMAYRA) [...] imaging tests). Lab Interpretation (test code = 93280-5) Abnormal [facility] with [id number] 11:30:52* Test Item Value Reference Range Interpretation Comme nts WBC (test code = 6690-2) 9.66 See_Comment [[employer]ated [employer]] The system which generated this result transmitted reference range: 4.20 - 10.70 10*3/?L. The reference range was not used to interpret this result as normal/abnormal. RBC (test code = 789-8) 5.00 See_Comment [[employer]ated [employer]] The system which generated this result [...] 31.2 g/dL 31.2-35.0 RDW-SD (test code = 68239-0) 56.6 fL 38.5-51.6 H RDW-CV (test code = 788-0) 15.4 % 12.1-15.4 PLT (test code = 777-3) 261 See_Comment [[employer]ated [employer]] The system which generated this result transmitted reference range: 150 - 328 10*3/?L. The reference range was not used to interpret this result as normal/abnormal. MPV (test code = 82195-2) 10.4 fL 9.8-13.0 NRBC/100 WBC (test code = 9637879353) 0.0 See_Comment [Automated [employer] ssage] The system which generated this result transmitted reference range: 0.0 - 10.0 /100 WBCs. The reference range was not used to interpret this result as normal/abnormal. NRBC x10^3 (test code = 4007000876) See_Comment [Automated messa ge] The system which generated this result transmitted reference range: 10*3/?L. The reference range was not used to interpret this result as normal/abnormal. GRAN MAT (NEUT) % (test code = 770-8) 58.9 % IMM GRAN % (test code = 0501792989) 0.40 % LYMPH % (test code = 736-9) 28.6 % MONO % (test code = 5905-5) 10.5 % EOS % (test code = 713-8) 0.9 % BASO % (test code = 706-2) 0.7 % GRAN MAT x10^3(ANC) (test code = 2235936809) 5.69 10*3/uL 1.99-6.95 IMM GRAN x10^3 (test code = 1041608631) 0.04 10*3/uL 0.00-0.06 LYMPH x10^3 (test code = 731-0) 2.76 10*3/uL 1.09-3.23 MONO x10^3 (test code = 742-7) 1.01 10*3/uL 0.36-1.02 EOS x10^3 (test code = 711-2) 0.09 10*3/uL 0.06-0.53 BASO x10^3 (test code = 704-7) 0.07 10*3/uL 0.01-0.09 Lab Interpretation (test code = 81387-2) [id number] 10:20:57* Test Item Value Reference Range Interpretation Comme nts NT-proBNP (test code = 5880106215) 473 pg/mL <=125 H OMAYRA (test code = OMAYRA) Biotin has been reported to cause a negative bias, interpret results relative to patient's use of biotin. Lab Interpretation (test code = 97239-2) [facility] (93818)(TOTAL CHOLESTEROL, TRIGLYCERIDES, HDL)2022-12-12 10:18:39* Test Item Value Reference Range Interpretation Comme nts CHOL (test code = 8077442341) 133 mg/dL 120-200 HDL (test code = 4688908322) 38 mg/dL >=40 L HDLC RATIO (test code = 4247408522) 3.5 <=5.0 TRIG (test code = 5860383429) 57 mg/dL 30-170 LDL CHOL (test code = 34550-2) 84 mg/dL <=160 VLDL (test code = 7816322336) 11 mg/dL 5-60 Lab Interpretation (test cod e = 40791-4) [facility]2023-[facility]-26 10:18:19* Test Item Value Reference Range Interpretation Comme nts MAGNESIUM (test code = 3415205890) 2.0 mg/dL 1.7-2.4 Lab Interpretation (test cod e = 88028-0) Normal [facility] METABOLIC PANEL (NA, K, CL, CO2, GLUCOSE, BUN, CREATININE, CA)2022-12-12 10:18:14* Test Item Value Reference Range Interpretation Comme nts NA (test code = 4676550518) 130 mmol/L 135-145 L K (test code = 0645000368) 3.7 mmol/L 3.5-5.0 CL (test code = 5102937957) 89 mmol/L 98-108 L CO2 TOTAL (test code = 0187472120) 37 mmol/L 23-31 H AGAP (test code = 3594627415) 4 2-16 BUN (test code = 8688912104) 13 mg/dL 7-23 GLUCOSE (test code = 5758872562) 120 mg/dL 70-110 H CREATININE (test code = 1533427692) 0.56 mg/dL 0.60-1.25 L CALCIUM (test code = 9451094200) 8.3 mg/dL 8.6-10.6 L eGFR (test code = 6123735864) 146.9 mL/min/1.73m2 OMAYRA (test code = OMAYRA) [...] imaging tests). Lab Interpretation (test code = 28628-6) [facility] 00:54:58 ALCOHOL<10mg/dL12/10/2022 7:54 PM [facility]<10 Guupxgjl86-487 Toxic>100 Depression of [place] AUDITOR>400 Fatalities [facility]orted[facility] CentralTROPONIN [id number] 00:50:14* Test Item Value Reference Range Interpretation Comme nts TROPONIN I (test code = 8620042448) 0.006 ng/mL <=0.034 OMAYRA (test code = [...] of biotin. Lab Interpretation (test code = 78346-6) [facility] [id number] 00:47:12* Test Item Value Reference Range Interpretation Comme nts NT-proBNP (test code = 5083882020) 291 pg/mL <=125 H OMAYRA (test code = OMAYRA) Biotin has been reported to cause a negative bias, interpret results relative to patient's use of biotin. Lab Interpretation (test code = 88832-3) Abnormal [facility]. METABOLIC PANEL (37265)2022-12-11 00:41:12* Test Item Value Reference Range Interpretation Comme nts NA (test code = 1874362452) 126 mmol/L 135-145 L K (test code = 8687206111) 4.0 mmol/L 3.5-5.0 CL (test code = 5795378555) 82 mmol/L 98-108 L CO2 TOTAL (test code = 5904847793) 40 mmol/L 23-31 H AGAP (test code = 5676948766) 4 2-16 BUN (test code = 6841753756) 16 mg/dL 7-23 GLUCOSE (test code = 5243671263) 97 mg/dL 70-110 CREATININE (test code = 5442813872) 0.67 mg/dL 0.60-1.25 TOTAL BILI (test code = 9411819369) 0.8 mg/dL 0.1-1.1 CALCIUM (test code = 8362180610) 8.5 mg/dL 8.6-10.6 L T PROTEIN (test code = 9984406206) 5.9 g/dL 6.3-8.2 L ALBUMIN (test code = 3347140003) 3.5 g/dL 3.5-5.0 ALK PHOS (test code = 7803997915) 49 U/L 34-122 ALTv (test code = 1742-6) 18 U/L 5-50 AST(SGOT) (test code = 3817773608) 11 U/L 13-40 L eGFR (test code = 3858679981) 119.4 mL/min/1.73m2 OMAYRA (test code = OMAYRA) [...] imaging tests). Lab Interpretation (test code = 91219-4) Abnormal [facility] WITH [id number] 00:29:08* Test Item Value Reference Range Interpretation Comme nts WBC (test code = 6690-2) 10.15 See_Comment [[employer]] The system which generated this result transmitted reference range: 4.20 - 10.70 10*3/?L. The reference range was not used to interpret this result as normal/abnormal. RBC (test code = 789-8) 4.52 See_Comment [[employer]] The system which generated this result transmitted [...] 32.8 g/dL 31.2-35.0 RDW-SD (test code = 45006-5) 46.7 fL 38.5-51.6 RDW-CV (test code = 788-0) 13.6 % 12.1-15.4 PLT (test code = 777-3) 263 See_Comment [Automated messa ge] The system which generated this result transmitted reference range: 150 - 328 10*3/?L. The reference range was not used to interpret this result as normal/abnormal. MPV (test code = 90630-8) 9.7 fL 9.8-13.0 L NRBC/100 WBC (test code = 5647009116) 0.0 See_Comment [Automated [employer] ssage] The system which generated this result transmitted reference range: 0.0 - 10.0 /100 WBCs. The reference range was not used to interpret this result as normal/abnormal. NRBC x10^3 (test code = 3961747020) See_Comment [Automated messa ge] The system which generated this result transmitted reference range: 10*3/?L. The reference range was not used to interpret this result as normal/abnormal. GRAN MAT (NEUT) % (test code = 770-8) 71.6 % IMM GRAN % (test code = 2904723781) 0.90 % LYMPH % (test code = 736-9) 17.6 % MONO % (test code = 5905-5) 8.7 % EOS % (test code = 713-8) 1.0 % BASO % (test code = 706-2) 0.2 % GRAN MAT x10^3(ANC) (test code = 6374752807) 7.27 10*3/uL 1.99-6.95 H IMM GRAN x10^3 (test code = 6734835109) 0.09 10*3/uL 0.00-0.06 H LYMPH x10^3 (test code = 731-0) 1.79 10*3/uL 1.09-3.23 MONO x10^3 (test code = 742-7) 0.88 10*3/uL 0.36-1.02 EOS x10^3 (test code = 711-2) 0.10 10*3/uL 0.06-0.53 BASO x10^3 (test code = 704-7) 0.01-0.09 Lab Interpretation (test code = 24370-3) [facility]normal [facility] CentralLactic Acid Whole [id number] 00:14:48* Test Item Value Reference Range Interpretation Comme nts LACTIC ACID (test code = 5576201780) 1.30 mmol/L 0.50-2.20 Lab Interpretation (test cod e = 55750-8) Normal [facility] METABOLIC PANEL (NA, K, CL, CO2, GLUCOSE, BUN, CREATININE, CA)2022-12-04 11:06:33* Test Item Value Reference Range Interpretation Comme nts NA (test code = 8734347686) 123 mmol/L 135-145 L K (test code = 2374220947) 3.8 mmol/L 3.5-5.0 CL (test code = 4834341208) 86 mmol/L 98-108 L CO2 TOTAL (test code = 6454035570) 36 mmol/L 23-31 H AGAP (test code = 8062234329) 1 2-16 L BUN (test code = 3376631212) 22 mg/dL 7-23 GLUCOSE (test code = 9937930629) 195 mg/dL 70-110 H CREATININE (test code = 6771077715) 0.76 mg/dL 0.60-1.25 CALCIUM (test code = 8563749829) 8.2 mg/dL 8.6-10.6 L eGFR (test code = 6083926101) 103.3 mL/min/1.73m2 OMAYRA (test code = OMAYRA) [...] imaging tests). Lab Interpretation (test code = 85312-3) Abnormal [facility] WITH [id number] 10:54:29* Test Item Value Reference Range Interpretation Comme nts WBC (test code = 6690-2) 8.54 See_Comment [Automated [employer]] The system which generated this result transmitted reference range: 4.20 - 10.70 10*3/?L. The reference range was not used to interpret this result as normal/abnormal. RBC (test code = 789-8) 4.17 See_Comment L [Automated [employer]] The system which generated this result transmitted [...] 34.1 g/dL 31.2-35.0 RDW-SD (test code = 74388-7) 44.1 fL 38.5-51.6 RDW-CV (test code = 788-0) 13.6 % 12.1-15.4 PLT (test code = 777-3) 247 See_Comment [[employer]ated [employer]] The system which generated this result transmitted reference range: 150 - 328 10*3/?L. The reference range was not used to interpret this result as normal/abnormal. MPV (test code = 33568-0) 9.5 fL 9.8-13.0 L NRBC/100 WBC (test code = 7134750785) 0.0 See_Comment [Automated [employer] ssage] The system which generated this result transmitted reference range: 0.0 - 10.0 /100 WBCs. The reference range was not used to interpret this result as normal/abnormal. NRBC x10^3 (test code = 8452054331) See_Comment [[employer]] The system which generated this result transmitted reference range: 10*3/?L. The reference range was not used to interpret this result as normal/abnormal. GRAN MAT (NEUT) % (test code = 770-8) 93.0 % IMM GRAN % (test code = 6756401494) 0.90 % LYMPH % (test code = 736-9) 3.2 % MONO % (test code = 5905-5) 2.9 % EOS % (test code = 713-8) 0.0 % BASO % (test code = 706-2) 0.0 % GRAN MAT x10^3(ANC) (test code = 4643257564) 7.94 10*3/uL 1.99-6.95 H IMM GRAN x10^3 (test code = 1941306341) 0.08 10*3/uL 0.00-0.06 H LYMPH x10^3 (test code = 731-0) 0.27 10*3/uL 1.09-3.23 L MONO x10^3 (test code = 742-7) 0.25 10*3/uL 0.36-1.02 L EOS x10^3 (test code = 711-2) 0.06-0.53 L BASO x10^3 (test code = 704-7) 0.01-0.09 Lab Interpretation (test code = 40008-9) Abnormal [facility] Metabolic Panel (NA, K, CL, CO2, GLUCOSE, BUN, CREATININE, CA)2022-12-03 10:44:53* Test Item Value Reference Range Interpretation Comme nts NA (test code = 3448829483) 126 mmol/L 135-145 L K (test code = 8659223177) 4.0 mmol/L 3.5-5.0 Slight hemolysis CL (test code = 4215343663) 89 mmol/L 98-108 L CO2 TOTAL (test code = 3183672301) 32 mmol/L 23-31 H AGAP (test code = 8540663776) 5 2-16 BUN (test code = 3718512485) 15 mg/dL 7-23 Slight hemolysis GLUCOSE (test code = 9514360899) 115 mg/dL 70-110 H CREATININE (test code = 4478024204) 0.63 mg/dL 0.60-1.25 CALCIUM (test code = 3584895023) 7.7 mg/dL 8.6-10.6 L eGFR (test code = 4179632780) 128.2 mL/min/1.73m2 OMAYRA (test code = OMAYRA) [...] imaging tests). Lab Interpretation (test code = 54438-4) [facility]normal [facility] CentralMagnesium [id number] 10:44:53* Test Item Value Reference Range Interpretation Comme nts MAGNESIUM (test code = 0452845190) 1.6 mg/dL 1.7-2.4 L Lab Interpretation (test cod e = 82184-2) [facility]normal [facility] with Cskjwulhxkmi5387-98-39 10:39:13* Test Item Value Reference Range Interpretation [...] 33.1 g/dL 31.2-35.0 RDW-SD (test code = 38471-7) 45.4 fL 38.5-51.6 RDW-CV (test code = 788-0) 13.6 % 12.1-15.4 PLT (test code = 777-3) 254 See_Comment [Automated message] The system which generated this result transmitted reference range: 150 - 328 10*3/?L. The reference range was not used to interpret this result as normal/abnormal. MPV (test code = 09357-1) 10.2 fL 9.8-13.0 NRBC/100 WBC (test code = 9997505544) 0.0 See_Comment [Automated message] The system which generated this result transmitted reference range: 0.0 - 10.0 /100 WBCs. The reference range was not used to interpret this result as normal/abnormal. NRBC x10^3 (test code = 7829169419) See_Comment [Automated message] The system which generated this result transmitted reference range: 10*3/?L. The reference range was not used to interpret this result as normal/abnormal. GRAN MAT (NEUT) % (test code = 770-8) 90.0 % IMM GRAN % (test code = 6705097897) 0.90 % LYMPH % (test code = 736-9) 5.9 % MONO % (test code = 5905-5) 2.8 % EOS % (test code = 713-8) 0.2 % BASO % (test code = 706-2) 0.2 % GRAN MAT x10^3(ANC) (test code = 3107656526) 10.27 10*3/uL 1.99-6.95 H IMM GRAN x10^3 (test code = 0182407384) 0.10 10*3/uL 0.00-0.06 H LYMPH x10^3 (test code = 731-0) 0.67 10*3/uL 1.09-3.23 L MONO x10^3 (test code = 742-7) 0.32 10*3/uL 0.36-1.02 L EOS x10^3 (test code = 711-2) 0.06-0.53 L BASO x10^3 (test code = 704-7) 0.01-0.09 Lab Interpretation (test code = 37895-6) Abnormal [facility] METABOLIC PANEL (NA, K, CL, CO2, GLUCOSE, BUN, CREATININE, CA)2022-12-02 06:20:42* Test Item Value Reference Range Interpretation Comme nts NA (test code = 2438067817) 124 mmol/L 135-145 L K (test code = 7050262525) 4.5 mmol/L 3.5-5.0 CL (test code = 9935130082) 78 mmol/L 98-108 L CO2 TOTAL (test code = 2815629366) 37 mmol/L 23-31 H AGAP (test code = 6437762051) 9 2-16 BUN (test code = 8441072029) 14 mg/dL 7-23 GLUCOSE (test code = 8745243741) 93 mg/dL 70-110 CREATININE (test code = 0007503215) 0.71 mg/dL 0.60-1.25 CALCIUM (test code = 4179971078) 9.1 mg/dL 8.6-10.6 eGFR (test code = 4210601750) 111.7 mL/min/1.73m2 OMAYRA (test code = OMAYRA) [...] imaging tests). Lab Interpretation (test code = 63596-0) [facility]normal [facility] CentralNELA [id number] 12:22:32* Test Item Value Reference Range Interpretation Comme nts TROPONIN I (test code = 3575902659) 0.008 ng/mL <=0.034 OMAYRA (test code = [...] of biotin. Lab Interpretation (test code = 64973-0) Normal [facility] METABOLIC PANEL (NA, K, CL, CO2, GLUCOSE, BUN, CREATININE, CA)2022-12-01 12:11:11* Test Item Value Reference Range Interpretation Comme [facility] NA (test code = 9572065949) 124 mmol/L 135-145 L K (test code = 0082783550) 4.2 mmol/L 3.5-5.0 CL (test code = 3991855235) 79 mmol/L 98-108 L CO2 TOTAL (test code = 6595362462) 37 mmol/L 23-31 H AGAP (test code = 8528095221) 8 2-16 BUN (test code = 1050412418) 16 mg/dL 7-23 GLUCOSE (test code = 6022261200) 105 mg/dL 70-110 CREATININE (test code = 4270614917) 0.67 mg/dL 0.60-1.25 CALCIUM (test code = 7164871532) 8.6 mg/dL 8.6-10.6 eGFR (test code = 8134509761) 119.4 mL/min/1.73m2 OMAYRA (test code = OMAYRA) [...] imaging tests). Lab Interpretation (test code = 38802-4) Abnormal [facility] WITH [id number] 11:59:32* Test Item Value Reference Range Interpretation [...] 32.9 g/dL 31.2-35.0 RDW-SD (test code = 65379-7) 43.8 fL 38.5-51.6 RDW-CV (test code = 788-0) 13.2 % 12.1-15.4 PLT (test code = 777-3) 208 See_Comment [Automated message] The system which generated this result transmitted reference range: 150 - 328 10*3/?L. The reference range was not used to interpret this result as normal/abnormal. MPV (test code = 00317-4) 9.8 fL 9.8-13.0 NRBC/100 WBC (test code = 4720395212) 0.0 See_Comment [Automated message] The system which generated this result transmitted reference range: 0.0 - 10.0 /100 WBCs. The reference range was not used to interpret this result as normal/abnormal. NRBC x10^3 (test code = 3745160186) See_Comment [Automated message] The system which generated this result transmitted reference range: 10*3/?L. The reference range was not used to interpret this result as normal/abnormal. GRAN MAT (NEUT) % (test code = 770-8) 85.9 % IMM GRAN % (test code = 4263530709) 0.50 % LYMPH % (test code = 736-9) 6.8 % MONO % (test code = 5905-5) 6.3 % EOS % (test code = 713-8) 0.3 % BASO % (test code = 706-2) 0.2 % GRAN MAT x10^3(ANC) (test code = 2193131236) 10.44 10*3/uL 1.99-6.95 H IMM GRAN x10^3 (test code = 6757979187) 0.06 10*3/uL 0.00-0.06 LYMPH x10^3 (test code = 731-0) 0.83 10*3/uL 1.09-3.23 L MONO x10^3 (test code = 742-7) 0.77 10*3/uL 0.36-1.02 EOS x10^3 (test code = 711-2) 0.04 10*3/uL 0.06-0.53 L BASO x10^3 (test code = 704-7) 0.03 10*3/uL 0.01-0.09 Lab Interpretation (test code = 66631-5) [facility] (NA, K, CL, CO2, GLUCOSE, BUN, CREATININE, CA)2022-11-28 17:17:23* Test Item Value Reference Range Interpretation Comme nts NA (test code = 7902368236) 120 mmol/L 135-145 L K (test code = 2063052362) 4.3 mmol/L 3.5-5.0 CL (test code = 6412624647) 77 mmol/L 98-108 L CO2 TOTAL (test code = 3364954066) 40 mmol/L 23-31 H AGAP (test code = 1587522937) 3 2-16 BUN (test code = 5935775677) 15 mg/dL 7-23 GLUCOSE (test code = 2410916799) 151 mg/dL 70-110 H CREATININE (test code = 0933904914) 0.63 mg/dL 0.60-1.25 CALCIUM (test code = 0758873727) 8.2 mg/dL 8.6-10.6 L eGFR (test code = 6096241566) 128.2 mL/min/1.73m2 OMAYRA (test code = OMAYRA) [...] imaging tests). Lab Interpretation (test code = 78526-8) [facility]2023-[facility]-12 06:54:10* Test Item Value Reference Range Interpretation Comme nts MAGNESIUM (test code = 4468763729) 1.6 mg/dL 1.7-2.4 L Lab Interpretation (test cod e = 97750-8) [facility] (NA, K, CL, CO2, GLUCOSE, BUN, CREATININE, CA)2022-11-28 01:29:53* Test Item Value Reference Range Interpretation Comme nts NA (test code = 7684082984) 120 mmol/L 135-145 L K (test code = 2502680694) 3.9 mmol/L 3.5-5.0 CL (test code = 0839268405) 77 mmol/L 98-108 L CO2 TOTAL (test code = 8553395666) 36 mmol/L 23-31 H AGAP (test code = 6402901808) 7 2-16 BUN (test code = 2986934936) 17 mg/dL 7-23 GLUCOSE (test code = 0642635251) 85 mg/dL 70-110 CREATININE (test code = 3831017318) 0.76 mg/dL 0.60-1.25 CALCIUM (test code = 1417949008) 8.3 mg/dL 8.6-10.6 L eGFR (test code = 9071983017) 103.3 mL/min/1.73m2 OMAYRA (test code = OMAYRA) [...] imaging tests). Lab Interpretation (test code = 21597-2) Abnormal [facility] METABOLIC PANEL (NA, K, CL, CO2, GLUCOSE, BUN, CREATININE, CA)2022-11-27 20:36:26* Test Item Value Reference Range Interpretation Comme nts NA (test code = 7463837209) 122 mmol/L 135-145 L K (test code = 1616864009) 3.9 mmol/L 3.5-5.0 CL (test code = 0998610176) 79 mmol/L 98-108 L CO2 TOTAL (test code = 0856268490) 37 mmol/L 23-31 H AGAP (test code = 6879029704) 6 2-16 BUN (test code = 6834152803) 17 mg/dL 7-23 GLUCOSE (test code = 4443966968) 113 mg/dL 70-110 H CREATININE (test code = 6202559076) 0.78 mg/dL 0.60-1.25 CALCIUM (test code = 8871198144) 7.8 mg/dL 8.6-10.6 L eGFR (test code = 6960639305) 100.2 mL/min/1.73m2 OMAYRA (test code = OMAYRA) [...] imaging tests). Lab Interpretation (test code = 04390-1) [facility]YCOSYL[facility] HEMOGLOBIN (A1C)2022-11-27 18:21:30* Test Item Value Reference Range Interpretation Comme nts HGB A1C (test code = 4548-4) 5.9 % 4.0-5.7 H OMAYRA (test code = OMAYRA) Reference RangesNormal: <5.7%Prediabetes: 5.7 - 6.4%Diabetes: > 6.5% Lab Interpretation (test code = 98821-6) [facility]TR[facility] [id number] 06:12:58* Test Item Value Reference Range Interpretation Comme nts TROPONIN I (test code = 7113382643) 0.007 ng/mL <=0.034 OMAYRA (test code = [...] of biotin. Lab Interpretation (test code = 69277-9) [facility] 06:10:43 ALCOHOL<10mg/dL11/27/2022 12:10 AM [facility]<10 Zjeafuaj98-842 Toxic>100 Depression of [place] AUDITOR>400 Fatalities ReportedMid[facility]ast [facility] – CentralN-TERMINAL [id number] 06:09:37* Test Item Value Reference Range Interpretation Comme nts NT-proBNP (test code = 0417756313) 311 pg/mL <=125 H OMAYRA (test code = OMAYRA) Biotin has been reported to cause a negative bias, interpret results relative to patient's use of biotin. Lab Interpretation (test code = 23005-4) [facility] CentralCOMP[facility] METABOLIC PAN[facility] (41103)2022-11-27 06:08:02* Test Item Value Reference Range Interpretation Comme nts NA (test code = 8938524425) 116 mmol/L 135-145 LL K (test code = 7233362345) 4.1 mmol/L 3.5-5.0 CL (test code = 0803149412) 75 mmol/L 98-108 L CO2 TOTAL (test code = 6989477460) 34 mmol/L 23-31 H AGAP (test code = 9847302969) 7 2-16 BUN (test code = 8695102819) 16 mg/dL 7-23 GLUCOSE (test code = 3633515439) 70 mg/dL 70-110 CREATININE (test code = 1338917179) 0.62 mg/dL 0.60-1.25 TOTAL BILI (test code = 5563079201) 1.2 mg/dL 0.1-1.1 H CALCIUM (test code = 1676049108) 8.1 mg/dL 8.6-10.6 L T PROTEIN (test code = 9488251921) 6.3 g/dL 6.3-8.2 ALBUMIN (test code = 5905763733) 3.8 g/dL 3.5-5.0 ALK PHOS (test code = 8042474483) 58 U/L 34-122 ALTv (test code = 1742-6) 15 U/L 5-50 AST(SGOT) (test code = 7600172950) 13 U/L 13-40 eGFR (test code = 8118502919) 130.6 mL/min/1.73m2 OMAYRA (test code = OMAYRA) [...] imaging tests). Lab Interpretation (test code = 04422-2) Abnormal [facility] WITH [id number] 05:45:18* Test Item Value Reference Range Interpretation Comme nts WBC (test code = 6690-2) 9.18 See_Comment [Automated [employer]] The system which generated this result transmitted [...] 34.8 g/dL 31.2-35.0 RDW-SD (test code = 58018-0) 40.1 fL 38.5-51.6 RDW-CV (test code = 788-0) 12.6 % 12.1-15.4 PLT (test code = 777-3) 216 See_Comment [Automated [employer]] The system which generated this result transmitted reference range: 150 - 328 10*3/?L. The reference range was not used to interpret this result as normal/abnormal. MPV (test code = 55727-9) 9.4 fL 9.8-13.0 L NRBC/100 WBC (test code = 2833002695) 0.0 See_Comment [Automated [employer] ssage] The system which generated this result transmitted reference range: 0.0 - 10.0 /100 WBCs. The reference range was not used to interpret this result as normal/abnormal. NRBC x10^3 (test code = 0279865791) See_Comment [Automated messa ge] The system which generated this result transmitted reference range: 10*3/?L. The reference range was not used to interpret this result as normal/abnormal. GRAN MAT (NEUT) % (test code = 770-8) 79.1 % IMM GRAN % (test code = 0265421947) 0.90 % LYMPH % (test code = 736-9) 11.8 % MONO % (test code = 5905-5) 6.8 % EOS % (test code = 713-8) 1.2 % BASO % (test code = 706-2) 0.2 % GRAN MAT x10^3(ANC) (test code = 1367760282) 7.27 10*3/uL 1.99-6.95 H IMM GRAN x10^3 (test code = 1632955432) 0.08 10*3/uL 0.00-0.06 H LYMPH x10^3 (test code = 731-0) 1.08 10*3/uL 1.09-3.23 L MONO x10^3 (test code = 742-7) 0.62 10*3/uL 0.36-1.02 EOS x10^3 (test code = 711-2) 0.11 10*3/uL 0.06-0.53 BASO x10^3 (test code = 704-7) 0.01-0.09 Lab Interpretation (test code = 85040-9) [id number] 09:49:54* Test Item Value Reference Range Interpretation Comme nts NT-proBNP (test code = 2233145527) 294 pg/mL <=125 H OMAYRA (test code = OMAYRA) Biotin has been reported to cause a negative bias, interpret results relative to patient's use of biotin. Lab Interpretation (test code = 47513-1) [facility] (98254)2022-11-19 09:41:52* Test Item Value Reference Range Interpretation Comme nts NA (test code = 2347394223) 120 mmol/L 135-145 L K (test code = 9533350438) 4.4 mmol/L 3.5-5.0 CL (test code = 8178557124) 80 mmol/L 98-108 L CO2 TOTAL (test code = 6788168239) 34 mmol/L 23-31 H AGAP (test code = 8354533366) 6 2-16 BUN (test code = 2190278160) 10 mg/dL 7-23 GLUCOSE (test code = 5392153099) 93 mg/dL 70-110 CREATININE (test code = 4983512972) 0.77 mg/dL 0.60-1.25 TOTAL BILI (test code = 3289185957) 1.1 mg/dL 0.1-1.1 CALCIUM (test code = 9904052758) 8.7 mg/dL 8.6-10.6 T PROTEIN (test code = 8463320022) 6.9 g/dL 6.3-8.2 ALBUMIN (test code = 7365908688) 4.1 g/dL 3.5-5.0 ALK PHOS (test code = 7340370474) 60 U/L 34-122 ALTv (test code = 1742-6) 14 U/L 5-50 AST(SGOT) (test code = 0873734691) 13 U/L 13-40 eGFR (test code = 5512801812) 101.7 mL/min/1.73m2 OMAYRA (test code = OMAYRA) [...] imaging tests). Lab Interpretation (test code = 73875-1) Abnormal [facility] WITH [id number] 09:02:29* Test Item Value Reference Range Interpretation [...] 33.7 g/dL 31.2-35.0 RDW-SD (test code = 27223-0) 42.3 fL 38.5-51.6 RDW-CV (test code = 788-0) 12.9 % 12.1-15.4 PLT (test code = 777-3) 252 See_Comment [Automated messa ge] The system which generated this result transmitted reference range: 150 - 328 10*3/?L. The reference range was not used to interpret this result as normal/abnormal. MPV (test code = 42052-0) 9.6 fL 9.8-13.0 L NRBC/100 WBC (test code = 0258088099) 0.0 See_Comment [Automated [employer] ssage] The system which generated this result transmitted reference range: 0.0 - 10.0 /100 WBCs. The reference range was not used to interpret this result as normal/abnormal. NRBC x10^3 (test code = 9141877972) See_Comment [Automated messa ge] The system which generated this result transmitted reference range: 10*3/?L. The reference range was not used to interpret this result as normal/abnormal. GRAN MAT (NEUT) % (test code = 770-8) 70.7 % IMM GRAN % (test code = 3426664011) 1.00 % LYMPH % (test code = 736-9) 16.0 % MONO % (test code = 5905-5) 10.5 % EOS % (test code = 713-8) 1.3 % BASO % (test code = 706-2) 0.5 % GRAN MAT x10^3(ANC) (test code = 3172635042) 5.87 10*3/uL 1.99-6.95 IMM GRAN x10^3 (test code = 7323047969) 0.08 10*3/uL 0.00-0.06 H LYMPH x10^3 (test code = 731-0) 1.33 10*3/uL 1.09-3.23 MONO x10^3 (test code = 742-7) 0.87 10*3/uL 0.36-1.02 EOS x10^3 (test code = 711-2) 0.11 10*3/uL 0.06-0.53 BASO x10^3 (test code = 704-7) 0.04 10*3/uL 0.01-0.09 Lab Interpretation (test code = 65095-5) Abnormal [facility] METABOLIC PANEL (NA, K, CL, CO2, GLUCOSE, BUN, CREATININE, CA)2022-11-10 23:42:55* Test Item Value Reference Range Interpretation Comme nts NA (test code = 1661729160) 121 mmol/L 135-145 L K (test code = 1277336961) 4.7 mmol/L 3.5-5.0 CL (test code = 0573942736) 82 mmol/L 98-108 L CO2 TOTAL (test code = 8453722923) 34 mmol/L 23-31 H AGAP (test code = 8721859713) 5 2-16 BUN (test code = 5679092211) 15 mg/dL 7-23 GLUCOSE (test code = 2353217070) 120 mg/dL 70-110 H CREATININE (test code = 1483138745) 0.75 mg/dL 0.60-1.25 CALCIUM (test code = 2401712286) 7.7 mg/dL 8.6-10.6 L eGFR (test code = 0021048751) 104.8 mL/min/1.73m2 OMAYRA (test code = OMAYRA) [...] imaging tests). Lab Interpretation (test code = 72429-4) Abnormal [facility] METABOLIC PANEL (NA, K, CL, CO2, GLUCOSE, BUN, CREATININE, CA)2022-11-10 17:59:59* Test Item Value Reference Range Interpretation Comme nts NA (test code = 9407940909) 121 mmol/L 135-145 L K (test code = 3251508298) 4.3 mmol/L 3.5-5.0 CL (test code = 8131285361) 81 mmol/L 98-108 L CO2 TOTAL (test code = 2981597115) 38 mmol/L 23-31 H AGAP (test code = 1747661270) 2 2-16 BUN (test code = 5107537915) 15 mg/dL 7-23 GLUCOSE (test code = 6831432982) 113 mg/dL 70-110 H CREATININE (test code = 6015448946) 0.74 mg/dL 0.60-1.25 CALCIUM (test code = 7411582040) 7.5 mg/dL 8.6-10.6 L eGFR (test code = 6758679578) 106.5 mL/min/1.73m2 OMAYRA (test code = OMAYRA) [...] imaging tests). Lab Interpretation (test code = 08111-4) [id number] 13:08:23* Test Item Value Reference Range Interpretation Comme nts NT-proBNP (test code = 3455773954) 177 pg/mL <=125 H OMAYRA (test code = OMAYRA) Biotin has been reported to cause a negative bias, interpret results relative to patient's use of biotin. Lab Interpretation (test code = 97519-7) [facility] [id number] 08:23:33* Test Item Value Reference Range Interpretation Comme nts TROPONIN I (test code = 3914588268) 0.004 ng/mL <=0.034 OMAYRA (test code = [...] of biotin. Lab Interpretation (test code = 51879-5) Normal [facility] (49607)2022-11-09 08:12:09* Test Item Value Reference Range Interpretation Comme nts NA (test code = 6551937124) 123 mmol/L 135-145 L K (test code = 0864797702) 4.2 mmol/L 3.5-5.0 CL (test code = 5250869481) 78 mmol/L 98-108 L CO2 TOTAL (test code = 3426394326) 34 mmol/L 23-31 H AGAP (test code = 3295911385) 11 2-16 BUN (test code = 7184568798) 8 mg/dL 7-23 GLUCOSE (test code = 5778507615) 113 mg/dL 70-110 H CREATININE (test code = 7422300889) 0.87 mg/dL 0.60-1.25 TOTAL BILI (test code = 7688874360) 1.2 mg/dL 0.1-1.1 H CALCIUM (test code = 3282149046) 8.8 mg/dL 8.6-10.6 T PROTEIN (test code = 1392023534) 7.6 g/dL 6.3-8.2 ALBUMIN (test code = 9701964231) 4.5 g/dL 3.5-5.0 ALK PHOS (test code = 9136150672) 72 U/L 34-122 ALTv (test code = 1742-6) 13 U/L 5-50 AST(SGOT) (test code = 8880482546) 13 U/L 13-40 eGFR (test code = 4758322023) 88.3 mL/min/1.73m2 OMAYRA (test code = OMAYRA) [...] imaging tests). Lab Interpretation (test code = 53925-2) [facility], [id number] 08:11:14* Test Item Value Reference Range Interpretation Comme nts LIPASE (test code = 4990925974) 108 U/L 0-220 Lab Interpretation (test cod e = 42056-3) [facility] WITH [id number] 07:59:28* Test Item Value Reference Range Interpretation Comme nts WBC (test code = 6690-2) 8.95 See_Comment [Automated [employer]] The system which generated this result transmitted reference range: 4.20 - 10.70 10*3/?L. The reference range was not used to interpret this result as normal/abnormal. RBC (test code = 789-8) 5.07 See_Comment [Automated [employer]] The system which generated this result transmitted [...] 32.8 g/dL 31.2-35.0 RDW-SD (test code = 09213-8) 41.1 fL 38.5-51.6 RDW-CV (test code = 788-0) 12.5 % 12.1-15.4 PLT (test code = 777-3) 235 See_Comment [Automated [employer]] The system which generated this result transmitted reference range: 150 - 328 10*3/?L. The reference range was not used to interpret this result as normal/abnormal. MPV (test code = 95171-1) 9.8 fL 9.8-13.0 NRBC/100 WBC (test code = 3909774458) 0.0 See_Comment [Automated [employer] ssage] The system which generated this result transmitted reference range: 0.0 - 10.0 /100 WBCs. The reference range was not used to interpret this result as normal/abnormal. NRBC x10^3 (test code = 0865955072) See_Comment [Automated [employer] ssage] The system which generated this result transmitted reference range: 10*3/?L. The reference range was not used to interpret this result as normal/abnormal. GRAN MAT (NEUT) % (test code = 770-8) 56.9 % IMM GRAN % (test code = 1366811325) 0.40 % LYMPH % (test code = 736-9) 29.4 % MONO % (test code = 5905-5) 9.5 % EOS % (test code = 713-8) 3.0 % BASO % (test code = 706-2) 0.8 % GRAN MAT x10^3(ANC) (test code = 3898730739) 5.09 10*3/uL 1.99-6.95 IMM GRAN x10^3 (test code = 5262140880) 0.04 10*3/uL 0.00-0.06 LYMPH x10^3 (test code = 731-0) 2.63 10*3/uL 1.09-3.23 MONO x10^3 (test code = 742-7) 0.85 10*3/uL 0.36-1.02 EOS x10^3 (test code = 711-2) 0.27 10*3/uL 0.06-0.53 BASO x10^3 (test code = 704-7) 0.07 10*3/uL 0.01-0.09 [facility], [id number] 19:05:00 * Test Item Value Reference Range [...] U APPEAR (test code = 3267) [facility] [id number] 19:05:00 * Test Item Value Reference Range [...] U APPEAR (test code = 3267) clear [facility] URINALYSIS, [id number] 19:05:00 * Test Item Value Reference Range [...] U APPEAR (test code = 3267) clear [facility] ABDOMEN PELVIS W [id number] 17:53:531. ?No hydronephrosis or nephrolithiasis. 2. ?Mild [...] hernia with mild circumferential distalesophageal thickening (2:16). Tilden density within the distal stomach andat the [...] hernia with mild circumferential distalesophageal thickening (2:16). Tilden density within the distal stomach andat the [...] small right hydrocele.5. Additional findings as above. [facility] [id number] 17:37:38* Test Item Value Reference Range Interpretation Comme nts APPEARANCE (test code = 7513308028) Cloudy Clear A COLOR (test code = 6797040644) Red Yellow A PH (test code = 1446441832) 4.8-8.0 SP GRAVITY (test code = 7596428067) 1.003-1.030 GLU U QUAL (test code = 1039088811) 50 mg/dL Normal A BLOOD (test code = 7066184103) 3+ Negative A KETONES (test code = 4870403056) Negative Negative PROTEIN (test code = 2887-8) 100 mg/dL Negative A UROBILIN (test code = 7483915358) Normal Normal BILIRUBIN (test code = 6784823473) Negative Negative NITRITE (test code = 8055247919) Negative Negative LEUK DIANELYS (test code = 3731867164) Negative Negative RBC/HPF (test code = 3694748706) >182 See_Comment H [Automated messa ge] The system which generated this result transmitted reference range: 0 - 3 HPF. The reference range was not used to interpret this result as normal/abnormal. WBC/HPF (test code = 2747870192) >182 See_Comment H [Automated messa ge] The system which generated this result transmitted reference range: 0 - 5 HPF. The reference range was not used to interpret this result as normal/abnormal. BACTERIA (test code = 4028309918) Moderate Negative A WBC CLUMPS (test code = 4188320599) See_Comment H [Automated messa ge] The system which generated this result transmitted reference range: <=1 HPF. The reference range was not used to interpret this result as normal/abnormal. Lab Interpretation (test code = 50193-4) Abnormal [facility] Metabolic Panel (NA, K, CL, CO2, GLUCOSE, BUN, CREATININE, CA)2020-12-12 17:13:57* Test Item Value Reference Range Interpretation Comme nts NA (test code = 0619122110) 140 mmol/L 135-145 K (test code = 4911117186) 4.5 mmol/L 3.5-5.0 CL (test code = 5556483067) 100 mmol/L 98-108 CO2 TOTAL (test code = 7003297824) 35 mmol/L 23-31 H AGAP (test code = 2463010784) 2-16 BUN (test code = 7375291622) 25 mg/dL 7-23 H GLUCOSE (test code = 7112780113) 114 mg/dL 70-110 H CREATININE (test code = 9183676300) 1.18 mg/dL 0.60-1.25 CALCIUM (test code = 1768056055) 9.0 mg/dL 8.6-10.6 eGFR Calculation (Non-) (test code = 2614580226) mL/min/1.73m2 eGFR Calculation () (test code = 2534585166) mL/min/1.73m2 OMAYRA (test code = OMAYRA) Association [...] imaging tests). Lab Interpretation (test code = 99323-4) Abnormal [facility] with [id number] 16:56:10* Test Item Value Reference Range Interpretation Comme nts WBC (test code = 6690-2) See_Comment [Automated [employer]] The system which generated this result transmitted [...] 32.8 g/dL 31.2-35.0 RDW-SD (test code = 20434-5) 42.9 fL 38.5-51.6 RDW-CV (test code = 788-0) 11.9 % 12.1-15.4 L PLT (test code = 777-3) See_Comment [Automated [employer]] The system which generated this result transmitted reference range: 150 - 328 10*3/?L. The reference range was not used to interpret this result as normal/abnormal. MPV (test code = 99288-5) 10.8 fL 9.8-13.0 NRBC/100 WBC (test code = 2762610333) See_Comment [Automated [employer] ssage] The system which generated this result transmitted reference range: 0.0 - 10.0 /100 WBCs. The reference range was not used to interpret this result as normal/abnormal. NRBC x10^3 (test code = 6328700081) <0.01 See_Comment [Automated messa ge] The system which generated this result transmitted reference range: 10*3/?L. The reference range was not used to interpret this result as normal/abnormal. GRAN MAT (NEUT) % (test code = 770-8) 63.5 % IMM GRAN % (test code = 3104387970) 0.40 % LYMPH % (test code = 736-9) 23.9 % MONO % (test code = 5905-5) 6.7 % EOS % (test code = 713-8) 4.3 % BASO % (test code = 706-2) 1.2 % GRAN MAT x10^3(ANC) (test code = 1889617612) 4.27 10*3/uL 1.99-6.95 IMM GRAN x10^3 (test code = 9510576000) 0.03 10*3/uL 0.00-0.06 LYMPH x10^3 (test code = 731-0) 1.61 10*3/uL 1.09-3.23 MONO x10^3 (test code = 742-7) 0.45 10*3/uL 0.36-1.02 EOS x10^3 (test code = 711-2) 0.29 10*3/uL 0.06-0.53 BASO x10^3 (test code = 704-7) 0.08 10*3/uL 0.01-0.09 Lab Interpretation (test code = 45549-3) [facility] [id number] 18:56:00 * Test Item Value Reference Range [...] turbid Lab Interpretation (test cod e = 26741-2) [facility] [id number] 18:56:00 * Test Item Value Reference Range [...] turbid Lab Interpretation (test cod e = 74757-6) Abnormal [facility]
[2023-09-14] MEDS ORDERED: IPRATROPIUM BROM 0.5MG/2.5ML ONE (14:24)
[2023-09-14] MEDS ORDERED: LEVALBUTEROL 1.25 MG/3 ML NEB ONE ×2 (14:24→16:28)
[2023-09-14] MEDS ORDERED: NA CHLORIDE 0.9% 500 ML ONE (14:24)
[2023-09-14] MEDS ORDERED: METHYLPREDNISOLONE 125 MG INJ ONE (14:24)
[2023-09-14] MEDS ORDERED: MAGNESIUM SULFATE 1 gm IVPB 1 GM/100 ML BAG IV ONE (14:25)
[2023-09-14 14:59] LABS: Absolute Lymphocytes (CBC) 0.9 K/uL (0.7-4.9); Hematocrit 35.6 % (39.6-49.0); Lymphocytes % 13.8 % (15.3-44.8); MCV 98.3 fL (80-100); MPV 8.1 fL (7.6-11.3); Platelets 167 thou/uL (152-406); RBC Red Blood Cell Count 3.62 M/uL (4.33-5.43)
--- NOTE | 2023-09-14 15:17 | RAD REPORT ---
EXAM DESCRIPTION: RAD - Chest Single View - 09/14/2023 3:11 pm CLINICAL HISTORY: DYSPNEA Chest pain. COMPARISON: Chest Single View dated 09/11/2023; Chest Single View dated 09/11/2023; Chest Single Vie w dated 09/08/2023; Chest Single View dated 08/27/2023 FINDINGS: Portable technique limits examination quality. The lungs are emphysematous but grossly clear. The heart is normal in size. No displaced fractures.Si ngle lead pacer/ defibrillator device. IMPRESSION: Prominent COPD.
[2023-09-14 15:43] LABS: Potassium 3.6 mEq/L (3.5-5.1); Troponin High Sensitivity 15.5 pg/mL (<58.9)
--- NOTE | 2023-09-14 16:03 | EDPHYS ---
Physician Documentation [facility] Name: Juan C Monge Age: 63 yrs Sex: Male : 1960 Arrival Date: 09/14/2023 Time: 13:58 Bed 12 Private MD: ED Physician Genaro England HPI: 09/14 14:31 This 63 yrs old Male presents to ER via Ambulatory with complaints of Breathing rn Difficulty. 14:31 The patient has shortness of breath at rest. Onset: The symptoms/episode began/occurred rn at an unknown time. Duration: The symptoms are continuous. The patient's shortness of breath is aggravated by exertion, light activity, talking, is alleviated by nebulizer treatment, rest, application of supplemental oxygen. Associated signs and symptoms: Pertinent positives: non-productive cough, Pertinent negatives: fever, hemoptysis. Severity of symptoms: At their worst the symptoms were moderate in the emergency department the symptoms are unchanged. The patient has experienced similar episodes in the past. The patient has been recently seen by a physician:. Patient reports recently admitted to the hospital for COPD exacerbation, discharged home yesterday, seen again in the emergency room last night and left prior to disposition for unknown reason. Patient returns for worsening shortness of breath. Dyspnea at rest. Worse with exertion. On oxygen as needed but not /.. Historical: - Allergies: 14:04 No Known Allergies; hb - PMHx: 14:04 COPD; COPD; CVA; Hyperlipidemia; Hypertension; Myocardial infarction; skull fracture; hb - PSHx: 14:04 Appendectomy; pacemaker; hb - Immunization history:: Adult Immunizations up to date. - Family history:: not pertinent. - Social history:: Smoking status: Patient reports the use of cigarette tobacco products, smokes one pack cigarettes per day. - Hospitalizations: : The patient was recently seen at [facility]. ROS: 14:31 Constitutional: Negative for fever, chills, and weight loss, Eyes: Negative for injury, rn pain, redness, and discharge, Neck: Negative for injury, pain, and swelling, Cardiovascular: Negative for chest pain, palpitations, and edema, Respiratory: Positive for cough and shortness of breath Abdomen/GI: Negative for abdominal pain, nausea, vomiting, diarrhea, and constipation, MS/Extremity: Negative for injury and deformity, Skin: Negative for injury, rash, and discoloration, Neuro: Positive for generalized weakness Exam: 14:31 Constitutional: This is a well developed, well nourished patient who is awake, alert, rn moderate tachypnea and shallow breathing Head/Face: Normocephalic, atraumatic. ENT: Dry mucous membranes, no stridor Cardiovascular: Tachycardic, regular. No pulse deficits. Respiratory: Moderate tachypnea, diminished breath sounds throughout with poor inspiratory air movement. Abdomen/GI: Soft, non-tender MS/ Extremity: Pulses equal, no cyanosis Neuro: Awake and alert, GCS 15 15:24 ECG was reviewed by the Attending Physician. rn Vital Signs: 14:00 BP 156 / 91; Pulse 103; Resp 25; Pulse Ox 97% on 2 lpm NC; tl4 14:03 BP 162 / 87; Pulse 123; Resp 29; Temp 98.5; Pulse Ox 84% on R/A; Pain 0/10; hb 14:30 BP 153 / 83; Pulse 89; Resp 24; Pulse Ox 99% on 2 lpm NC; tl4 15:00 BP 140 / 74; Pulse 78; Resp 21; Pulse Ox 100% on 2 lpm NC; tl4 15:30 BP 129 / 83; Pulse 74; Resp 21; Pulse Ox 99% on 2 lpm NC; tl4 16:00 BP 136 / 69; Pulse 72; Resp 20; Pulse Ox 97% on 2 lpm NC; tl4 16:30 BP 140 / 70; Pulse 74; Resp 19; Pulse Ox 99% on 2 lpm NC; tl4 17:00 BP 155 / 85; Pulse 74; Resp 24; Pulse Ox 96% on 2 lpm NC; tl4 17:30 BP 137 / 65; Pulse 87; Resp 21; Pulse Ox 97% on 2 lpm NC; tl4 19:43 BP 135 / 75; Pulse 85; Resp 20; Pulse Ox 95% on 2 lpm NC; jb4 14:03 Pain Scale: Adult hb MDM: 14:02 Patient medically screened. rn 16:00 Differential diagnosis: Chronic Obstructive Pulmonary Disease Myocardial Infarction rn pneumonia, Pneumothorax. Data reviewed: vital signs, nurses notes, lab test result(s), radiologic studies, plain films, and as a result, I will admit patient. Consideration of Admission/Observation Patient was admitted/placed on observation. Escalation of care including admission/observation considered. Care significantly affected by the following chronic conditions: Chronic Obstructive Pulmonary Disease. Counseling: I had a detailed discussion with the patient and/or guardian regarding the historical points, exam findings, and any diagnostic results supporting the discharge/admit diagnosis, lab results, radiology results, the need for further work-up and treatment in the hospital. Response to treatment: the patient's symptoms have mildly improved after treatment, and as a result, I will admit patient. ED course: Patient with worsening of symptoms since yesterday's discharge, worsening of vital signs with increasing tachypnea and increased oxygen requirement. Discussed case with hospitalist service and will admit for more care.. 16:00 ED course: I personally spent 35 minutes engaged in work directly related to the rn individual patient's care. This does not include any time spent performing procedures. The patient has been deemed critically ill because of severe COPD exacerbation, tachypnea with respiratory rate in the 30s, requiring steroids, multiple nebulizer treatments, IV magnesium for stabilization.. 09/14 14:08 Order name: BMP; Complete Time: 15:49 rn 09/14 14:08 Order name: Blood Culture Adult (2) rn 09/14 14:08 Order name: CBC with Diff; Complete Time: 15:22 rn 09/14 14:08 Order name: NT PRO-BNP; Complete Time: 15:49 rn 09/14 14:08 Order name: Troponin HS; Complete Time: 15:49 rn 09/14 15:07 Order name: Lactate w/ 2H reflex if indic.; Complete Time: 15:49 cm10 09/14 17:29 Order name: Basic Metabolic Panel [facility] 09/14 17:29 Order name: Basic Metabolic Panel [facility] 09/14 17:29 Order name: Basic Metabolic Panel [facility] 09/14 17:29 Order name: Basic Metabolic Panel [facility] 09/14 17:29 Order name: Basic Metabolic Panel [facility] 09/14 17:29 Order name: Basic Metabolic Panel [facility] 09/14 17:29 Order name: Basic Metabolic Panel [facility] 09/14 17:29 Order name: Basic Metabolic Panel [facility] 09/14 17:29 Order name: CBC with Automated Diff EDIN 09/14 17:29 Order name: CBC with Automated Diff EDIN 09/14 17:29 Order name: CBC with Automated Diff [facility] 09/14 17:29 Order name: CBC with Automated Diff EDMS 09/14 17:29 Order name: CBC with Automated Diff EDMS 09/14 17:29 Order name: CBC with Automated Diff EDMS 09/14 17:29 Order name: CBC with Automated Diff EDMS 09/14 17:29 Order name: CBC with Automated Diff EDMS 09/14 17:29 Order name: Magnesium EDMS 09/14 17:29 Order name: Magnesium EDMS 09/14 17:29 Order name: Magnesium EDMS 09/14 17:29 Order name: Magnesium EDMS 09/14 17:29 Order name: Magnesium EDMS 09/14 17:29 Order name: Magnesium EDMS 09/14 17:29 Order name: Magnesium EDMS 09/14 17:29 Order name: Magnesium EDMS 09/14 17:29 Order name: Phosphorus EDMS 09/14 17:29 Order name: Phosphorus EDMS 09/14 17:29 Order name: Phosphorus EDMS 09/14 17:29 Order name: Phosphorus EDMS 09/14 17:29 Order name: Phosphorus EDMS 09/14 17:29 Order name: Phosphorus EDMS 09/14 17:29 Order name: Phosphorus EDMS 09/14 17:29 Order name: Phosphorus EDMS 09/14 17:29 Order name: Troponin High Sensitivity EDMS 09/14 17:29 Order name: Troponin High Sensitivity EDMS 09/14 17:29 Order name: Troponin High Sensitivity EDMS 09/14 14:08 Order name: XRAY CXR (1 view); Complete Time: 15:22 rn 09/14 17:29 Order name: RC INCENTIVE SPIROMETRY EDMS 09/14 17:30 Order name: RC INCENTIVE SPIROMETRY EDMS 09/14 17:30 Order name: RC INCENTIVE SPIROMETRY EDMS 09/14 17:30 Order name: RC INCENTIVE SPIROMETRY EDMS 09/14 17:30 Order name: RC INCENTIVE SPIROMETRY EDMS 09/14 17:30 Order name: RC INCENTIVE SPIROMETRY EDMS 09/14 14:08 Order name: EKG; Complete Time: 14:08 rn 09/14 17:29 Order name: CONS Physician Consult EDIN 09/14 17:29 Order name: Physical Therapy Consult EDMS 09/14 14:08 Order name: Cardiac monitoring; Complete Time: 14:31 rn 09/14 14:08 Order name: EKG - Nurse/Tech; Complete Time: 14:30 rn 09/14 14:08 Order name: IV Saline Lock; Complete Time: 14:53 rn 09/14 14:08 Order name: Labs collected and sent; Complete Time: 14:53 rn 09/14 14:08 Order name: O2 Per Protocol; Complete Time: 14:31 rn 09/14 14:08 Order name: O2 Sat Monitoring; Complete Time: 14:31 rn EC:24 Rate is 83 beats/min. Rhythm is regular. QRS [place] is Normal. NE interval is normal. QRS rn interval is normal. QT interval is normal. No Q waves. T waves are Normal. No ST changes noted. Clinical impression: Normal ECG. Interpreted by me. Reviewed by me. Administered Medications: 14:31 Drug: Levalbuterol Inhalation 1.25 mg Inhalation once Route: Inhalation; tl4 15:05 Follow up: Response: No adverse reaction tl4 14:31 Drug: Ipratropium Inhalation Aerosol 0.5 mg Inhalation once Route: Inhalation; tl4 15:06 Follow up: Response: No adverse reaction tl4 16:25 Follow up: Response: No adverse reaction tl4 14:52 Drug: NS 0.9% IV 500 ml IV at bolus once Route: IV; Rate: bolus; Site: left forearm; tl4 Delivery: Primary tubing; 16:26 Follow up: Response: No adverse reaction; IV Status: Completed infusion; IV Intake: tl4 500ml 14:52 Drug: Magnesium Sulfate IVPB 1 grams IVPB once over 1 hrs Route: IVPB; Rate: 100 ml/hr; tl4 Infused Over: 1 hrs; Site: left forearm; Delivery: Dial-a-flow; 16:25 Follow up: Response: No adverse reaction; IV Status: Completed infusion; IV Intake: tl4 100ml 14:53 Drug: MethylPrednisoLONE IVP 125 mg IVP once Route: IVP; Site: left forearm; tl4 15:07 Follow up: Response: No adverse reaction tl4 16:26 Follow up: Response: No adverse reaction tl4 16:28 Drug: Levalbuterol Inhalation 1.25 mg Inhalation once Route: Inhalation; tl4 16:58 Follow up: Response: No adverse reaction tl4 Disposition: 16:00 Critical Care:. rn Disposition Summary: 09/14/23 16:02 Hospitalization Ordered Notes: Hospitalization Status: Observation rn Provider: Baidoo, Thierry rn Location: Telemetry/MedSurg (observation) rn Condition: Stable rn Problem: an acute exacerbation rn Symptoms: have improved rn Bed/Room Type: Standard rn Room Assignment: 202(09/14/23 17:37) asael Diagnosis - COPD/ Chronic obstructive pulmonary disease with (acute) exacerbation rn - Hypoxemia rn - Dyspnea, unspecified rn Forms: - Medication Reconciliation Form rn - SBAR form rn - Leadership Thank You Letter learning support services director time excluding procedures: 16:00 Critical care time: Bedside Care: 30 minutes, Consultation: 5 minutes. Total time: 35 rn minutes Signatures: Dispatcher [employer] EDGenaro Palm MD MD rn Baxter, Heather, RN RN hb Cahoon, Moriah 5 Bravo Mccain4 Corrections: (The following items were deleted from the chart) 17:37 16:02 rn Tito
--- NOTE | 2023-09-14 16:03 | ER ---
Nurse's Notes [facility] Name: Juan C Monge Age: 63 yrs Sex: Male : 1960 Arrival Date: 09/14/2023 Time: 13:58 Bed 12 Private MD: Diagnosis: COPD/ Chronic obstructive pulmonary disease with (acute) exacerbation;Hypoxemia;Dyspnea, unspecified Presentation: 09/14 14:03 Chief complaint: Shortness of breath for "a few hours.". Coronavirus screen: Client hb presents with at least one sign or symptom that may indicate coronavirus-19. Provider contacted for isolation considerations. Ebola Screen: No symptoms or risks identified at this time. Risk Assessment: Do you want to hurt yourself or someone else? Patient reports no desire to harm self or others. Onset of symptoms was September 14, 2023. 14:03 Method Of Arrival: Ambulatory hb 14:03 Acuity: JESSI 2 hb 15:26 Initial Sepsis Screen: Does the patient meet any 2 criteria? RR > 20 per min. HR > 90 hb bpm. Yes Does the patient have a suspected source of infection? No. Patient's initial sepsis screen is negative. Triage Assessment: 15:26 General: Appears distressed, Behavior is agitated. Respiratory: Reports shortness of tl4 breath Onset: The symptoms/episode began/occurred ongoing for several weeks. Respiratory: the patient has moderate shortness of breath. Historical: - Allergies: 14:04 No Known Allergies; hb - PMHx: 14:04 COPD; COPD; CVA; Hyperlipidemia; Hypertension; Myocardial infarction; skull fracture; hb - PSHx: 14:04 Appendectomy; pacemaker; hb - Immunization history:: Adult Immunizations up to date. - Family history:: not pertinent. - Social history:: Smoking status: Patient reports the use of cigarette tobacco products, smokes one pack cigarettes per day. - Hospitalizations: : The patient was recently seen at [facility]. Screenin:21 [facility] ED Fall Risk Assessment (Adult) History of falling in the last 3 months, tl4 including since admission No falls in past 3 months (0 pts) Confusion or Disorientation No (0 pts) Intoxicated or Sedated No (0 pts) Impaired Gait No (0 pts) Mobility Assist Device Used No (0 pt) Altered Elimination No (0 pt) Score/Fall Risk Level 0 - 2 = Low Risk. Abuse screen: Denies threats or abuse. Denies injuries from another. Nutritional screening: No deficits noted. Tuberculosis screening: No symptoms or risk factors identified. Assessment: 15:19 Reassessment:. Pain: Denies pain. Cardiovascular: Reports lightheadedness, shortness of tl4 breath, Denies chest pain, diaphoresis, palpitations, Rhythm is regular. Respiratory: Airway is patent Respiratory effort is even, unlabored. 15:21 Reassessment: Patient and/or family updated on plan of care and expected duration. Pain tl4 level reassessed. Respiratory: Breath sounds are coarse Breath sounds are diminished. 15:25 General: Appears. tl4 15:25 General: Appears uncomfortable, Behavior is agitated, uncooperative. tl4 16:26 Reassessment: No changes from previously documented assessment. Patient and/or family tl4 updated on plan of care and expected duration. Pain level reassessed. Patient is alert, oriented x 3, equal unlabored respirations, skin warm/dry/pink. Patient denies pain at this time. 19:00 Reassessment: Patient appears in no apparent distress at this time. Patient and/or jb4 family updated on plan of care and expected duration. Pain level reassessed. Patient is alert, oriented x 3, equal unlabored respirations, skin warm/dry/pink. Vital Signs: 14:00 BP 156 / 91; Pulse 103; Resp 25; Pulse Ox 97% on 2 lpm NC; tl4 14:03 BP 162 / 87; Pulse 123; Resp 29; Temp 98.5; Pulse Ox 84% on R/A; Pain 0/10; hb 14:30 BP 153 / 83; Pulse 89; Resp 24; Pulse Ox 99% on 2 lpm NC; tl4 15:00 BP 140 / 74; Pulse 78; Resp 21; Pulse Ox 100% on 2 lpm NC; tl4 15:30 BP 129 / 83; Pulse 74; Resp 21; Pulse Ox 99% on 2 lpm NC; tl4 16:00 BP 136 / 69; Pulse 72; Resp 20; Pulse Ox 97% on 2 lpm NC; tl4 16:30 BP 140 / 70; Pulse 74; Resp 19; Pulse Ox 99% on 2 lpm NC; tl4 17:00 BP 155 / 85; Pulse 74; Resp 24; Pulse Ox 96% on 2 lpm NC; tl4 17:30 BP 137 / 65; Pulse 87; Resp 21; Pulse Ox 97% on 2 lpm NC; tl4 19:43 BP 135 / 75; Pulse 85; Resp 20; Pulse Ox 95% on 2 lpm NC; jb4 14:03 Pain Scale: Adult hb Vitals: 14:00 Cardiac Rhythm Assessment Regular Sinus rhythm. tl4 ED Course: 13:59 Patient arrived in ED. mr 14:02 Genaro England MD is Attending Physician. rn 14:04 Triage completed. hb 14:04 Arm band placed on. hb 14:21 Bravo Mccain is Primary Nurse. tl4 14:53 BMP Sent. tl4 14:53 CBC with Diff Sent. tl4 14:53 NT PRO-BNP Sent. tl4 14:53 Troponin HS Sent. tl4 14:53 No provider procedures requiring assistance completed. Inserted saline lock: 20 gauge tl4 in left forearm, using aseptic technique. Blood collected. 15:07 BMP Sent. tl4 15:07 Blood Culture Adult (2) Sent. tl4 15:07 Lactate w/ 2H reflex if indic. Sent. tl4 15:13 XRAY CXR (1 view) In Process Unspecified. EDMS 15:22 Patient has correct armband on for positive identification. Placed in gown. Bed in low tl4 position. Call light in reach. Side rails up X2. Adult w/ patient. Provided Education on: ED process. Client placed on continuous cardiac and pulse oximetry monitoring. NIBP monitoring applied. environmental monitoring technician on. Warm blanket given. pt given multiple warm blankets. 16:02 Thierry Ureña is Hospitalizing Provider. rn 17:58 Patient admitted, IV remains in place. tl4 18:23 attempt to call report. No answer at nurses station extension. tl4 18:40 attempt to call report. No answer at nurses station extension. tl4 Administered Medications: 14:31 Drug: Levalbuterol Inhalation 1.25 mg Inhalation once Route: Inhalation; tl4 15:05 Follow up: Response: No adverse reaction tl4 14:31 Drug: Ipratropium Inhalation Aerosol 0.5 mg Inhalation once Route: Inhalation; tl4 15:06 Follow up: Response: No adverse reaction tl4 16:25 Follow up: Response: No adverse reaction tl4 14:52 Drug: NS 0.9% IV 500 ml IV at bolus once Route: IV; Rate: bolus; Site: left forearm; tl4 Delivery: Primary tubing; 16:26 Follow up: Response: No adverse reaction; IV Status: Completed infusion; IV Intake: tl4 500ml 14:52 Drug: Magnesium Sulfate IVPB 1 grams IVPB once over 1 hrs Route: IVPB; Rate: 100 ml/hr; tl4 Infused Over: 1 hrs; Site: left forearm; Delivery: Dial-a-flow; 16:25 Follow up: Response: No adverse reaction; IV Status: Completed infusion; IV Intake: tl4 100ml 14:53 Drug: MethylPrednisoLONE IVP 125 mg IVP once Route: IVP; Site: left forearm; tl4 15:07 Follow up: Response: No adverse reaction tl4 16:26 Follow up: Response: No adverse reaction tl4 16:28 Drug: Levalbuterol Inhalation 1.25 mg Inhalation once Route: Inhalation; tl4 16:58 Follow up: Response: No adverse reaction tl4 Medication: 15:27 VIS not applicable for this client. tl4 Intake: 16:25 IV: 100ml; Total: 100ml. tl4 16:26 IV: 500ml; Total: 600ml. tl4 Output: 16:32 Urine: 400ml (Voided); Total: 400ml. tl4 Outcome: 16:02 Decision to Hospitalize by Provider. rn 20:14 Patient left the ED. cm10 Signatures: Dispatcher [employer] EDWV Go Marika, Reg Reg Genaro England MD MD rn Baxter, Heather, RN RN hb Bryson, James, RN RN jb4 Martinez, Clarissa, RN RN cm10 LogdaBravo sanches tl4 Corrections: (The following items were deleted from the chart) 15:21 15:19 Reassessment: No changes from previously documented assessment. Patient and/or tl4 family updated on plan of care and expected duration. Pain level reassessed. Patient is alert, oriented x 3, equal unlabored respirations, skin warm/dry/pink. Patient states symptoms have improved. tl4 16:13 15:26 Initial Sepsis Screen: Does the patient meet any 2 criteria? No. Patient's hb initial sepsis screen is negative. Does the patient have a suspected source of infection? No. Patient's initial sepsis screen is negative. tl4 17:50 17:30 BP 137 / 65; Pulse 84bpm; Resp 18bpm; Pulse Ox 97% RA; tl4 tl4
[2023-09-14] MEDS ORDERED: ACETAMINOPHEN 500 MG TAB PO PRN (17:22)
[2023-09-14] MEDS ORDERED: IPRATROPIUM BROM 0.5MG/2.5ML NEB PRN (17:22)
[2023-09-14] MEDS ORDERED: ACETAMINOPHEN 325 MG TABLET PO PRN (17:22)
--- NOTE | 2023-09-14 17:40 | P.HP ---
Certification for Inpatient Patient admitted to: Observation With expected LOS: <2 Midnights Patient will require the following post-hospital care: None Practitioner: I am a practitioner with admitting privileges, knowledge of patient current condition, hospital course, and medical plan of care. Services: Services provided to patient in accordance with Admission requirements found in Title 42 Section 412.3 of the Code of Federal Regulations Patient History Date of Service: 09/14/23 Reason for admission: COPD exacerbation History of Present Illness: Arvin Monge is a 63-year-old male with past medical history hypertension, hyperlipidemia, coronary artery disease, COPD on home oxygen, tobacco use who returns to the ED on 09/14/2023 after discharge 09/13/2023 with worsening COPD exacerbation symptoms. At discharge he was prescribed azithromycin, Daliresp, prednisone but was unable to pick them up due to returning to the ED the night of 09/13/2023. He reports sleeping well last night but then becoming uncomfortable this morning with increased work of breathing and heaviness in the chest associated with dizziness, cough, and chills. Chest x-ray reports "The lungs are emphysematous but grossly clear. The heart is normal in size. No displaced fractures.Single lead pacer/ defibrillator device." Initial vitals BP 156 / 91; Pulse 103; Resp 25; Pulse Ox 97% on 2 lpm NC Laboratory evaluation BNP 431, troponin 15.5, bicarb 41. Juan C will be admitted to hospitalist service for further evaluation and treatment of worsening COPD exacerbation, Dr. Li consulted. Allergies No Known Allergies Allergy (Verified 09/12/23 00:32) Home Medications: Azithromycin Tab [Zithromax*] 500 mg PO DAILY #8 tab 09/13/23 Roflumilast [Daliresp*] 500 mcg PO DAILY #0 09/13/23 predniSONE [Prednisone*] 20 mg PO BID #10 tab 09/13/23 - Past Medical/Surgical History Diabetic: No -: COPD -: Paroxysmal Afib -: HTN -: Tobacco abuse -: CVA -: skull fx -: defibrilator -: Home O2 -: Hx Hyponatremia (Dr. Hargrove/ Dr. Menjivar) -: Appendectomy Psychosocial/ Personal History: Patient lives with a girlfriend at home - Family History Father -: Diabetes Mother -: Diabetes - Social History Alcohol use: No CD- Drugs: No Caffeine use: Yes Review of Systems Per HPI Physical Examination - Physical Exam General: Alert, In no apparent distress, Oriented x3 HEENT: Atraumatic, Normocephalic, PERRLA Neck: Supple, 2+ carotid pulse no bruit, JVD not distended Respiratory: Normal air movement, Expiratory wheezes Cardiovascular: No edema, Normal pulses, Regular rate/rhythm Capillary refill: <2 Seconds Gastrointestinal: Normal bowel sounds, Soft and benign Musculoskeletal: No clubbing, No swelling, No contractures Integumentary: No rashes, No breakdown, No significant lesion Neurological: Normal speech, Normal strength at 5/5 x4 extr, Normal tone - Studies Laboratory Data (last 24 hrs) 09/14/23 09/14/23 14:40 14:40 WBC 6.60 Hgb 11.6 L Hct 35.6 L Plt Count 167 Sodium 142 Potassium 3.6 BUN 27 H Creatinine 0.72 Glucose 86 Assessment and Plan - Plan Assessment and plan COPD exacerbation BUN 431, troponin 15.5, bicarb 41 Chest x-ray reports "The lungs are emphysematous but grossly clear. The heart is normal in size. No displaced fractures.Single lead pacer/ defibrillator device." Xopenex and stress steroids given in the ED Azithromycin 500 p.o. daily Daliresp 500 mg p.o. daily Prednisone 20 mg p.o. twice daily Ipratropium as needed Incentive spirometer Consulted Dr. Li On 3 L nasal cannula, on home oxygen CAD/HTN/HLD Continue home medication Tobacco abuse Nicotine patch as needed Tobacco cessation education DVT PPx Lovenox Full code LOS 24 hours Discharge Plan: Home Plan to discharge in: 24 Hours - Advance Directives Does patient have a Living Will: No Does patient have a Durable POA for Healthcare: No Time Spent Managing Pts Care (In Minutes): 55
[2023-09-14 20:44] VITALS: BMI 18.3
[2023-09-14] MEDS: ENOXAPARIN 40 MG/0.4 ML SQ SCH (22:22)
[2023-09-14] MEDS: ROFLUMILAST 500 MCG TABLET PO SCH (22:22)
[2023-09-14] MEDS: AZITHROMYCIN 250 MG TAB PO SCH (22:23)
[2023-09-15 04:03] LABS: Absolute Lymphocytes (CBC) 0.1 K/uL (0.7-4.9); Hematocrit 31.9 % (39.6-49.0); Lymphocytes % 2.5 % (15.3-44.8); MCV 97.2 fL (80-100); MPV 8.2 fL (7.6-11.3); Platelets 161 thou/uL (152-406); RBC Red Blood Cell Count 3.28 M/uL (4.33-5.43)
[2023-09-15 04:17] LABS: Magnesium 2.4 mg/dL (1.6-2.4); Phosphorus 3.3 mg/dL (2.5-4.9)
[2023-09-15 04:21] LABS: Potassium 4.2 mEq/L (3.5-5.1)
[2023-09-15 04:43] LABS: Blood Morphology Comment NOT SEEN (NOT SEEN); Platelet Estimate ADEQ
[2023-09-15] MEDS ORDERED: GLUCAGON 1 MG/VIAL IM PRN (07:34)
[2023-09-15] MEDS ORDERED: D50W 25 GM/50 ML SYRINGE IV PRN (07:34)
--- NOTE | 2023-09-15 07:41 | P.PN ---
Date of Service: 09/15/23 Subjective: Continuing on his home 2 L nasal cannula ROS: 10 point ROS as noted above, otherwise negative Physical Exam General: Alert, In no apparent distress, Oriented x3 HEENT: Atraumatic, Normocephalic, PERRLA Neck: Supple, 2+ carotid pulse no bruit, JVD not distended Respiratory: Normal air movement, Expiratory wheezes Cardiovascular: No edema, Normal pulses, Regular rate/rhythm Capillary refill: <2 Seconds Gastrointestinal: Normal bowel sounds, Soft and benign Musculoskeletal: No clubbing, No swelling, No contractures Integumentary: No rashes, No breakdown, No significant lesion Neurological: Normal speech, Normal strength at 5/5 x4 extr, Normal tone Vitals reviewed Problem list COPD exacerbation CAD/HTN/HLD Tobacco abuse Hyperglycemia COPD exacerbation BUN 431, bicarb 41 troponin 15.5/12.6/11.2- trend flat Chest x-ray reports "The lungs are emphysematous but grossly clear. The heart is normal in size. No displaced fractures.Single lead pacer/ defibrillator device." Xopenex and stress steroids given in the ED Azithromycin 500 p.o. daily Daliresp 500 mg p.o. daily Prednisone 20 mg p.o. twice daily Ipratropium as needed Incentive spirometer Consulted Dr. Li On 2 L nasal cannula, on home oxygen blood cultures pending Hyperglycemia A1C pending Serum glucose 205 CAD/HTN/HLD Continue home medication Tobacco abuse Nicotine patch as needed Tobacco cessation education DVT PPx Lovenox Full code LOS 24 hours Discharge Plan: Home Plan to discharge in: 24 Hours Time Spent Managing Pts Care (In Minutes): 35
[2023-09-15] MEDS ORDERED: D10W 125 ML IV PRN (07:43)
[2023-09-15] MEDS ORDERED: NICOTINE 14 MG/PAT TD SCH (09:00)
[2023-09-15] MEDS: ENOXAPARIN 40 MG/0.4 ML SQ SCH (10:09)
[2023-09-15] MEDS: AZITHROMYCIN 250 MG TAB PO SCH (10:10)
[2023-09-15] MEDS: ROFLUMILAST 500 MCG TABLET PO SCH (10:10)
[2023-09-15 10:55] VITALS: BP 133/67; TEMP 97.1
[2023-09-15] MEDS ORDERED: INSULIN REGULAR (HUMAN) 100 UNIT/ML SQ SCH (11:30)
--- NOTE | 2023-09-15 12:09 | P.PN ---
Subjective Date of Service: 09/15/23 Chief Complaint: COPD exacerbation Patient was discharged readmitted back again is a placement problem Review of Systems General: Weakness Respiratory: Shortness of Breath Physical Examination - Vital Signs Temperature: 97.1 F Blood Pressure: 133/67 Pulse: 59 Respirations: 18 Pulse Ox (%): 95 - Physical Exam General: Alert HEENT: Atraumatic Respiratory: Clear to auscultation bilaterally, Diminished Cardiovascular: No edema, Regular rate/rhythm, Normal S1 S2 Gastrointestinal: Normal bowel sounds, Soft and benign - Studies Laboratory Data (last 24 hrs) 09/14/23 09/14/23 14:40 14:40 WBC 6.60 Hgb 11.6 L Hct 35.6 L Plt Count 167 Sodium 142 Potassium 3.6 BUN 27 H Creatinine 0.72 Glucose 86 Assessment And Plan - Current Problems (Diagnosis) (1) COPD exacerbation Current Visit: No Status: Acute Plan: Patient is 63 years of age with a history of terminal COPD multiple admissions to the hospital is currently is a placement problem he is hemodynamically stable oxygenation satisfactory this morning patient was not in any respiratory distress renal function is stable stable for discharge
[2023-09-15 12:36] VITALS: O2SAT 95
--- NOTE | 2023-09-15 13:22 | EKG ---
Test Date: 2023-09-14 Test Time: 14:26:55 Analysis Engineer: JELENA MEASUREMENT RESULTS: Intervals: Rate: 83 LA: 134 QRSD: 98 QT: 368 QTc: 432 [place]: P: 85 LA: 134 QRS: 73 T: 77 INTERPRETIVE STATEMENTS: Normal sinus rhythm with sinus arrhythmia Normal ECG Compared to ECG 09/11/2023 21:19:32 Sinus bradycardia no longer present Electronically Signed On 09-15-23 13:19:41 FRONT MAKER LOCKSTITCH by Ric Pandya
--- NOTE | 2023-09-15 13:51 | P.DS ---
Admission Date: 09/14/23 Discharge Date: 09/15/23 Disposition: ROUTINE DISCHARGE Discharge Condition: GOOD Reason for Admission: COPD exacerbation Brief History of Present Illness: Diagnosis COPD exacerbation CAD/HTN/HLD Tobacco abuse Hyperglycemia Hospital Course: Juan C Monge is a pleasant 63-year-old male with a past medical history significant for hypertension, hyperlipidemia, coronary artery disease, COPD on home oxygen, tobacco use who was admitted to the [facility] on 09/14/2023 for COPD exacerbation. Juan C was discharged 09/13/2023, after recovery from a COPD exacerbation but returned 09/14/2023 with continuing worsening COPD symptoms. 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 With this new admission, discharge medications were restarted, Dr. Cedillo was consulted, and declares that he is cleared for discharge. He is hemodynamically stable, conversing well, tolerating p.o. diet, ambulating independently, on 2 L nasal cannula (home oxygen level) and ready for discharge. On 09/15/2023, Juan C was seen on morning rounds and deemed medically stable for discharge. Juan C was discharged with instructions to schedule follow-up appointments with PCP and Dr. Cedillo. Juan C was provided prescriptions for azithromycin 250 mg, prednisone 10 mg, and Daliresp which was prescribed from previous discharge. Continue using incentive spirometer 5 times daily. The patient and family members were given the opportunity to ask questions and reported no further questions. Furthermore, all questions were answered to the best of my ability. A copy of this discharge summary will be sent to the above providers to facilitate continuity of care. Today, I personally spent 55 minutes with Juan C, of which greater than 50% of the time was spent in patient education, counseling, and coordination of care as described above. Vital Signs/Physical Exam: Temp Pulse Resp BP Pulse Ox 97.1 F 59 18 133/67 95 09/15/23 12:08 09/15/23 12:08 09/15/23 12:08 09/15/23 12:08 09/15/23 12:08 Laboratory Data at Discharge: WBC 4.60 thou/uL (4.3-10.9) 09/15/23 03:26 Hgb 10.5 g/dL (13.6-17.9) L D 09/15/23 03:26 Hct 31.9 % (39.6-49.0) L 09/15/23 03:26 Plt Count 161 thou/uL (152-406) 09/15/23 03:26 Sodium 142 mEq/L (136-145) 09/15/23 03:26 Potassium 4.2 mEq/L (3.5-5.1) D 09/15/23 03:26 BUN 24 mg/dL (7-18) H 09/15/23 03:26 Creatinine 0.69 mg/dL (0.70-1.30) L 09/15/23 03:26 Glucose 205 mg/dL (74-106) H 09/15/23 03:26 Phosphorus 3.3 mg/dL (2.5-4.9) 09/15/23 03:26 Magnesium 2.4 mg/dL (1.6-2.4) 09/15/23 03:26 Home Medications: Roflumilast [Daliresp*] 500 mcg PO DAILY #0 09/13/23 Azithromycin Tab [Zithromax*] 250 mg PO DAILY 14 Days #14 tab 09/15/23 Fluticasone/Umeclidin/Vilanter [Trelegy Ellipta 100-62.5-25] 1 each IH DAILY 30 Days #1 inhaler 09/15/23 predniSONE [Deltasone*] 10 mg PO DAILY 10 Days #10 tab 09/15/23 New Medications: predniSONE [Deltasone*] 10 mg PO DAILY 10 Days #10 tab Fluticasone/Umeclidin/Vilanter [Trelegy Ellipta 100-62.5-25] 1 each IH DAILY 30 Days #1 inhaler Azithromycin Tab [Zithromax*] 250 mg PO DAILY 14 Days #14 tab Physician Discharge Instructions: Physical Exam General: Alert, In no apparent distress, Oriented x3 HEENT: Atraumatic, Normocephalic, PERRLA Neck: Supple, 2+ carotid pulse no bruit, JVD not distended Respiratory: Normal air movement, Expiratory wheezes Cardiovascular: No edema, Normal pulses, Regular rate/rhythm Capillary refill: <2 Seconds Gastrointestinal: Normal bowel sounds, Soft and benign Musculoskeletal: No clubbing, No swelling, No contractures Integumentary: No rashes, No breakdown, No significant lesion Neurological: Normal speech, Normal strength at 5/5 x4 extr, Normal tone 1. Please call and schedule a follow-up appointment with your PCP Dr. Cedillo in 3-5 days -for all refills of COPD medications being prescribed today 2. Please call and schedule a follow-up appointment with PCP in 3-5 days - Please follow-up with your PCP for medication refills/adjustments 3. Heart healthy diet 4. Fall precuation, ambulate safely 5. Use incentive spirometer at home 6. 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 smoking cessation recommended New medications Rayshawn called to pharmacy 09/13 Azithromycin 250 mg Daily Trelegy inhaler Follow up with Dr. Cedillo for continued COPD management including the above medication refills Diet: AHA Activity: Fall precautions Followup: Dameon Cedillo MD [ACTIVE - CAN ADMIT] - OMID KELLEY [Primary Care Provider] - Time spent managing pt's care (in minutes): 35
[2023-09-15] MEDS ORDERED: predniSONE 20 MG TAB PO SCH (17:00)
== END 2023-09-15 15:01 | disposition home or self-care (01) ==
LOC: ER 13:58 → ERHOLD 17:22 → 2ND 19:52
PROVIDERS: ADMIT Internal Medicine; ATTEND Internal Medicine
DX: J44.1 Chronic obstructive pulmonary disease with (acute) exacerbation (principal); I10 Essential (primary) hypertension; E78.5 Hyperlipidemia, unspecified; I25.10 Atherosclerotic heart disease of native coronary artery without angina pectoris; F17.210 Nicotine dependence, cigarettes, uncomplicated; I25.2 Old myocardial infarction; Z99.81 Dependence on supplemental oxygen
CPT/HCPCS: 96365; 93005; 87040 ×2; 85025 ×2; 80048 ×2; 36415; 83735; 84100; 82947 ×2; 83605; 83036; 84484 ×3; 83880; 71045; 97116; 97161; 97530; 94640; 96375; 99285; 96366; J1815; J3475; J7614 ×2; J7644 ×2; J1650 ×2; J2930; J7040; G0378 ×4

== ENCOUNTER → 2023-09-16 | Emergency (ER) | payer OTHER ==
[~2023-09-16] MED LIST changes: -ALBUTEROL 2.5 MG/3 ML NEB SOL ONE; -IPRATROPIUM BROM 0.5MG/2.5ML ONE; +LEVALBUTEROL 1.25 MG/3 ML NEB ONE; +METHYLPREDNISOLONE 125 MG INJ ONE
--- OUTSIDE RECORDS SUMMARY | 2023-09-16 13:21 | XMS REPORT | Continuity of Care Document ---
Author Name Unknown Address [address] [facility] [address] [place] [address] [facility] thconnect Address [address] [facility]. [address] [place] [address] Care Team Providers Care Machine Repairer Maintenance Name Role Phone MILY GOODWIN Primary Care Physician Unavailable HERMINIA OH Attending Clinician Unavailable NOMI MARY Attending Clinician Unavailable NOMI MARY Attending Clinician Unavailable Nomi Mary DO Attending Clinician [phone] Doctor Unassigned, [place]ott Attending Clinician U elaina Monge RN, Marika Friedman Attending Clinician [phone] MARELY WATTERS Attending Clinician Unavaila MARELY Meehan Attending Clinician Unavaila CARL Bowman Attending Clinician Unavailable CARL ORLANDO Attending Clinician Unavailable MILY GOODWIN Attending Clinician April Mily Ruiz MD Attending Clinician Taylor Frye RN Attending Clinician Unavailab TRAVIS Katz Attending Clinician Unavailable Iza Portillo Attending Clinician [phone] Francisca Bryant DO Attending Clinician +[phone] Travis Zeng MD Attending Clinician +[phone] PRADIP AUSTIN Attending Clinician Unavaila Pradip Du Attending Clinician [phone] HERMINIA CHO Attending Clinician Unavailable Herminia Cho MD Attending Clinician + FRANCISCA BRYANT Attending Clinician Unavailab LOUIS Ham Attending Clinician Unavailable Louis Hong DO Attending Clinician + Bessie Oswald MD Attending Clinician +[phone] RACHAEL FLOWERS Attending Clinician Unavailable Rachael Flowers MD Attending Clinician [phone] LEOBARDO SLOAN Attending Clinician Unavailable Leobardo Sloan MD Attending Clinician +[phone] BESSIE OSWALD Attending Clinician Unavailable STEPHANIE ALMONTE Attending Clinician Unavail able Stephanie Almonte MD Attending Clinician [phone] IZA VARMA Attending Clinician Unavailable Kathia Paula MD Attending Clinician [phone] Agapito Hackett MD Attending Clinician [phone] María Diaz DO Attending Clinician [phone] MARISOL DEVLIN Attending Clinician Unavailable Marisol Devlin MD Attending Clinician [phone] Dedrick Toth MD Attending Clinician [phone] Cecy Caro LVN Attending Clinician [phone] Carlo Valdez Attending Clinician + [phone] Abi Swan MD Attending Clinician [phone] Clive Contreras MD Attending Clinician [phone] ERNESTO PIPER Attending Clinician Unavailable ERNESTO PIPER Attending Clinician Unavailable Krissy Powers MD Attending Clinician [phone] LEILA CHAPA Attending Clinician Unavailable Leila Chapa MD Attending Clinician [phone] Jeanette Weaver Attending Clinician [phone] [facility] Lab Main Attending Clinician UnavailGokul Lewis MD Attending Clinician [phone] GOKUL TURNER Attending Clinician Unavailable , Adc Surg Spec Procedure Attending Clinician Unavailable JEANETTE MCDANIEL Attending Clinician Unavailable Chris ZAMORA, Herminia Chandler Attending Clinician UnavailRamesh Baires Attending Clinician [phone] TRAVIS ZENG Admitting Clinician Unavailable Travis Zeng MD Admitting Clinician [phone] STEPHANIE ALMONTE Admitting Clinician Unavail able LOUIS HONG Admitting Clinician Unavailable María Diaz DO Admitting Clinician [phone] MARISOL DEVLIN Admitting Clinician Unavailable IZA VARMA Admitting Clinician Unavailable Clive Contreras MD Admitting Clinician [phone] KRISSY POWERS Admitting Clinician Unavailable Krissy Powers MD Admitting Clinician [phone] MARÍA DIAZ Admitting Clinician Unavailable HERMINIA CHO Admitting Clinician Unavailable SAUD SANDERS Admitting Clinician Unavailable Payers Payer Name Policy Type Policy Number Effective Date Expirati on Date Source [employer] MEDICARE GOLD [id number] 2018 00:00:00 [employer] [id number] 2022 00:00:00 Problems Condition Name Condition Details Condition Category Status Onset Date Resolution Date Last Treatment Date Treating Clinician Comments Source Mitral regurgitat ion Mitral regurgitat ion Disease Active 02-16 00:00: 00 [facility] Hypotensio n, unspecifie d hypotensio n type Hypotensio n, unspecifie d hypotensio n type Disease Active 02-15 00:00: 00 [facility] 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 Disease Active 2023-0 5-03 00:00: 00 [facility] Confusion Confusion Disease Active 3-24 00:00: 00 [facility] Shortness of breath Shortness of breath Disease Active 3-11 00:00: 00 [facility] SOB (shortness of breath) SOB (shortness of breath) Disease Active 2-21 00:00: 00 [facility] 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 heart failure Disease Active 2018-09 00:00: 00 [facility] PAF (paroxysma l atrial fibrillati on) PAF (paroxysma l atrial fibrillati on) Disease Active 2018-09 00:00: 00 [facility] NSVT (nonsustai charlette ventricula r tachycardi a) NSVT (nonsustai charlette ventricula r tachycardi a) Disease Active 2018-09 00:00: 00 [facility] Acute on chronic combined systolic and diastolic congestive heart failure Acute on chronic combined systolic and diastolic congestive heart failure Disease Active 2018-09 00:00: 00 [facility] Nonrheumat ic mitral valve stenosis Nonrheumat ic mitral valve stenosis Disease Active 2018-09 00:00: 00 [facility] COPD exacerbati on COPD exacerbati on Disease Active 2018-09 00:00: 00 [facility] Cigarette smoker Cigarette smoker Disease Active 2018-09 00:00: 00 [facility] Troponin I above reference range Troponin I above reference range Disease Active 2018-09 00:00: 00 [facility] Hyponatrem ia Hyponatrem ia Disease Active 2018-09 00:00: 00 [facility] Hypoxia Hypoxia Disease Active 2018-09 00:00: 00 [facility] Acute respirator y distress Acute respirator y distress Disease Active 2018-09 00:00: 00 [facility] Left heart failure Left heart failure Disease Active 2013-09 00:00: 00 [facility] Closed fracture of zygoma Closed fracture of zygoma Disease Active 2013-09 00:00: 00 Overview: Formattin g of this note might be different from the original. Chronic Fracture - not acute [facility] Fall Fall Disease Active 2013-09 00:00: 00 [facility] Atrial fibrillati on Atrial fibrillati on Disease Active 2013-09 00:00: 00 [facility] VT (ventricul ar tachycardi a) VT (ventricul ar tachycardi a) Disease Active 2013-09 00:00: 00 [facility] Allergies, Adverse Reactions, Alerts Allergy Name Allergy Type Status Severity Reaction(s) Onset Date Inactive Date Treating Clinician Comments Source NO KNOWN ALLERGIE S Drug Class Active [facility] Social History Social Habit Start Date Stop Date Quantity Comments Source Gender identity [facility] of tobacco use Passive smoker [facility] History SDOH Social Connections Get Together [facility] History SDOH Social Connections [facility] History SDOH Social Connections Membership [facility] History SDOH Social Connections Meetings [facility] History of Social function 2023-03-01 00:00:00 2023-03-01 00:00:00 [facility] Alcohol intake 2023-03-01 00:00:00 2023-03-01 00:00:00 Current drinker of alcohol (finding) [facility] History SDOH Housing Unable to Pay 2023-02-18 00:00:00 2023-02-18 00:00:00 2 [facility] History SDOH Housing Places Lived 2023-02-18 00:00:00 2023-02-18 00:00:00 1 [facility] History SDOH Housing Homeless Last Year 2023-02-18 00:00:00 2023-02-18 00:00:00 2 [facility] History SDOH Alcohol Frequency 2023-02-18 00:00:00 2023-02-18 00:00:00 1 [facility] History SDOH Social Connections Phone 2023-02-18 00:00:00 2023-02-18 00:00:00 5 [facility] History SDOH Social Connections Living 2023-02-18 00:00:00 2023-02-18 00:00:00 7 [facility] History SDOH Physical Activity DPW 2023-02-18 00:00:00 2023-02-18 00:00:00 0 [facility] History SDOH Physical Activity MPS 2023-02-18 00:00:00 2023-02-18 00:00:00 0 [facility] History SDOH Financial 2023-02-18 00:00:00 2023-02-18 00:00:00 5 [facility] History SDOH Food Worry 2023-02-18 00:00:00 2023-02-18 00:00:00 1 [facility] History SDOH Food Scarcity 2023-02-18 00:00:00 2023-02-18 00:00:00 1 [facility] History SDOH Transport Med 2023-02-18 00:00:00 2023-02-18 00:00:00 2 [facility] History SDOH Transport Non-Med 2023-02-18 00:00:00 2023-02-18 00:00:00 2 [facility] Exposure to SARS-CoV-2 (event) 2023-02-05 00:00:00 2023-02-15 15:15:00 Not sure [facility] History SDOH Alcohol Std Drinks 2022-12-02 00:00:00 2022-12-02 00:00:00 3 [facility] History SDOH Alcohol Binge 2022-12-02 00:00:00 2022-12-02 00:00:00 1 [facility] Cigarettes smoked current (pack per day) - Reported 2022-11-09 00:00:00 2022-11-09 00:00:00 [facility] Tobacco use and exposure 2022-11-09 00:00:00 2022-11-09 00:00:00 User of smokeless tobacco [facility] Education - What is the highest level of school you have completed or the highest degree you have received? 2022-11-09 00:00:00 2022-11-09 00:00:00 High school graduate [facility] Alcohol Comment 2014-08-27 00:00:00 2014-08-27 00:00:00 8 drinks per day [facility] Sex Assigned At 1960 00:00:00 1960 00:00:00 [facility] Smoking Status Start Date Stop Date Source Smokes tobacco daily 2022-11-09 00:00:00 [facility] Medications Ordered Medication Name Filled Medication Name Start Date Stop Date Current Medication? Ordering Clinician Indication Dosage Frequency Signature (SIG) Comments Components Source khadar sim (INCRUSE ELLIPTA) 62.5 mcg/actuati on DsDv 2022-09 0- 00:00: 00 Yes [id number] 1{puff} Inhale 1 Puff in the morning. [facility] tiotropium 18 mcg inhalation 2022-09 0 00:00: 00 Yes 18ug Inhale 1 capsule in the morning. [facility] tiotropium 18 mcg inhalation 2022-09 0 00:00: 00 Yes 18ug Inhale 1 capsule in the morning. [facility] tiotropium 18 mcg inhalation 2022-09 0 00:00: 00 Yes 18ug Inhale 1 capsule in the morning. [facility] fluticasone propion-bella meteroL (ADVAIR DISKUS) 250-50 mcg/dose inhalation disk 04-19 00:00: 00 Yes 1{puff} Inhale 1 Puff in the morning and 1 Puff in the evening. [facility] tiotropium 18 mcg inhalation 04-19 00:00: 00 Yes 18ug Inhale 1 capsule in the morning. [facility] albuterol 90 mcg/actuati on inhaler 04-19 00:00: 00 Yes 2{puff} Inhale 2 Puffs every 4 (four) hours as needed for Wheezing or Shortness of Breath. [facility] ipratropium -albuteroL 0.5 mg-3 mg(2.5 mg base)/3 mL nebulizer solution 04-19 00:00: 00 Yes [id number] 3mL Inhale 3 mL every 6 (six) hours as needed for Wheezing. [facility] fluticasone propion-bella meteroL (ADVAIR DISKUS) 250-50 mcg/dose inhalation disk 04-19 00:00: 00 Yes 1{puff} Inhale 1 Puff in the morning and 1 Puff in the evening. [facility] tiotropium 18 mcg inhalation 04-19 00:00: 00 Yes 18ug Inhale 1 capsule in the morning. [facility] albuterol 90 mcg/actuati on inhaler 04-19 00:00: 00 Yes 2{puff} Inhale 2 Puffs every 4 (four) hours as needed for Wheezing or Shortness of Breath. [facility] ipratropium -albuteroL 0.5 mg-3 mg(2.5 mg base)/3 mL nebulizer solution 04-19 00:00: 00 Yes [id number] 3mL Inhale 3 mL every 6 (six) hours as needed for Wheezing. [facility] fluticasone propion-bella meteroL (ADVAIR DISKUS) 250-50 mcg/dose inhalation disk 04-19 00:00: 00 Yes 1{puff} Inhale 1 Puff in the morning and 1 Puff in the evening. [facility] tiotropium 18 mcg inhalation 04-19 00:00: 00 Yes 18ug Inhale 1 capsule in the morning. [facility] albuterol 90 mcg/actuati on inhaler 04-19 00:00: 00 Yes 2{puff} Inhale 2 Puffs every 4 (four) hours as needed for Wheezing or Shortness of Breath. [facility] ipratropium -albuteroL 0.5 mg-3 mg(2.5 mg base)/3 mL nebulizer solution 04-19 00:00: 00 Yes [id number] 3mL Inhale 3 mL every 6 (six) hours as needed for Wheezing. [facility] fluticasone propion-bella meteroL (ADVAIR DISKUS) 250-50 mcg/dose inhalation disk 04-19 00:00: 00 Yes 1{puff} Inhale 1 Puff in the morning and 1 Puff in the evening. [facility] albuterol 90 mcg/actuati on inhaler 04-19 00:00: 00 Yes 2{puff} Inhale 2 Puffs every 4 (four) hours as needed for Wheezing or Shortness of Breath. [facility] ipratropium -albuteroL 0.5 mg-3 mg(2.5 mg base)/3 mL nebulizer solution 04-19 00:00: 00 Yes [id number] 3mL Inhale 3 mL every 6 (six) hours as needed for Wheezing. [facility] fluticasone propion-bella meteroL (ADVAIR DISKUS) 250-50 mcg/dose inhalation disk 04-19 00:00: 00 Yes 1{puff} Inhale 1 Puff in the morning and 1 Puff in the evening. [facility] albuterol 90 mcg/actuati on inhaler 04-19 00:00: 00 Yes 2{puff} Inhale 2 Puffs every 4 (four) hours as needed for Wheezing or Shortness of Breath. [facility] ipratropium -albuteroL 0.5 mg-3 mg(2.5 mg base)/3 mL nebulizer solution 04-19 00:00: 00 Yes [id number] 3mL Inhale 3 mL every 6 (six) hours as needed for Wheezing. [facility] fluticasone propion-belal meteroL (ADVAIR DISKUS) 250-50 mcg/dose inhalation disk 04-19 00:00: 00 Yes 1{puff} Inhale 1 Puff in the morning and 1 Puff in the evening. [facility] albuterol 90 mcg/actuati on inhaler 04-19 00:00: 00 Yes 2{puff} Inhale 2 Puffs every 4 (four) hours as needed for Wheezing or Shortness of Breath. [facility] ipratropium -albuteroL 0.5 mg-3 mg(2.5 mg base)/3 mL nebulizer solution 04-19 00:00: 00 Yes [id number] 3mL Inhale 3 mL every 6 (six) hours as needed for Wheezing. [facility] tiotropium 18 mcg inhalation 8 00:00: 00 07-08 00:00 :00 No 18ug Inhale 1 capsule in the morning. [facility] albuterol 2.5 mg /3 mL (0.083 %) nebulizer solution 03-03 00:00: 00 Yes [id number] 2.5mg Inhale 3 mL every 4 (four) hours. May also nebulize one extra every 6 hours. [facility] albuterol 2.5 mg /3 mL (0.083 %) nebulizer solution 03-03 00:00: 00 Yes [id number] 2.5mg Inhale 3 mL every 4 (four) hours. May also nebulize one extra every 6 hours. [facility] albuterol 2.5 mg /3 mL (0.083 %) nebulizer solution 03-03 00:00: 00 Yes [id number] 2.5mg Inhale 3 mL every 4 (four) hours. May also nebulize one extra every 6 hours. [facility] albuterol 2.5 mg /3 mL (0.083 %) nebulizer solution 03-03 00:00: 00 Yes [id number] 2.5mg Inhale 3 mL every 4 (four) hours. May also nebulize one extra every 6 hours. [facility] albuterol 2.5 mg /3 mL (0.083 %) nebulizer solution 03-03 00:00: 00 Yes [id number] 2.5mg Inhale 3 mL every 4 (four) hours. May also nebulize one extra every 6 hours. [facility] albuterol 2.5 mg /3 mL (0.083 %) nebulizer solution 03-03 00:00: 00 Yes [id number] 2.5mg Inhale 3 mL every 4 (four) hours. May also nebulize one extra every 6 hours. [facility] albuterol 2.5 mg /3 mL (0.083 %) nebulizer solution 2022-0 6-15 00:00: 00 Yes [id number] 2.5mg Inhale 3 mL every 4 (four) hours. May also nebulize one extra every 6 hours. [facility] donepeziL 5 mg tablet 2022-0 6-13 00:00: 00 Yes [id number] 5mg Take 1 tablet by mouth in the morning. [facility] memantine 5 mg tablet 2022-0 6-13 00:00: 00 Yes [id number] 5mg Take 1 tablet by mouth in the morning. [facility] donepeziL 5 mg tablet 2022-0 6-13 00:00: 00 Yes [id number] 5mg Take 1 tablet by mouth in the morning. [facility] memantine 5 mg tablet 2022-0 6-13 00:00: 00 Yes [id number] 5mg Take 1 tablet by mouth in the morning. [facility] donepeziL 5 mg tablet 2022-0 6-13 00:00: 00 Yes [id number] 5mg Take 1 tablet by mouth in the morning. [facility] memantine 5 mg tablet 2022-0 6-13 00:00: 00 Yes [id number] 5mg Take 1 tablet by mouth in the morning. [facility] donepeziL 5 mg tablet 2022-0 -13 00:00: 00 Yes [id number] 5mg Take 1 tablet by mouth in the morning. [facility] memantine 5 mg tablet 2022-0 6-13 00:00: 00 Yes [id number] 5mg Take 1 tablet by mouth in the morning. [facility] donepeziL 5 mg tablet 3-0 6-13 00:00: 00 Yes [id number] 5mg Take 1 tablet by mouth in the morning. [facility] memantine 5 mg tablet 3-0 6-13 00:00: 00 Yes [id number] 5mg Take 1 tablet by mouth in the morning. [facility] donepeziL 5 mg tablet 3-0 6-13 00:00: 00 Yes [id number] 5mg Take 1 tablet by mouth in the morning. [facility] memantine 5 mg tablet 2022-0 13 00:00: 00 Yes [id number] 5mg Take 1 tablet by mouth in the morning. [facility] donepeziL 5 mg tablet 2022-0 13 00:00: 00 Yes [id number] 5mg Take 1 tablet by mouth in the morning. [facility] memantine 5 mg tablet 2022-0 13 00:00: 00 Yes [id number] 5mg Take 1 tablet by mouth in the morning. [facility] donepeziL 5 mg tablet 2022-0 03-01 00:00: 00 Yes [id number] 5mg Take 1 tablet by mouth in the morning. [facility] memantine 5 mg tablet 2022-0 03-01 00:00: 00 Yes [id number] 5mg Take 1 tablet by mouth in the morning. [facility] donepeziL 5 mg tablet 2022-0 03-01 00:00: 00 Yes [id number] 5mg Take 1 tablet by mouth in the morning. [facility] memantine 5 mg tablet 2022-0 03-01 00:00: 00 Yes [id number] 5mg Take 1 tablet by mouth in the morning. [facility] busPIRone 10 mg tablet 0 02-18 16:15: 12 Yes 10mg Take 1 tablet by mouth in the morning and 1 tablet in the evening. [facility] rivaroxaban 15 mg tablet 0 02-18 16:15: 12 Yes 15mg Take 1 tablet by mouth in the morning. [facility] ASPIRIN ORAL 2022-0 02-18 16:15: 12 Yes 81mg Take 81 mg by mouth in the morning. tablet [facility] busPIRone 10 mg tablet 2022-0 02-18 16:15: 12 Yes 10mg Take 1 tablet by mouth in the morning and 1 tablet in the evening. [facility] rivaroxaban 15 mg tablet 2022-0 02-18 16:15: 12 Yes 15mg Take 1 tablet by mouth in the morning. [facility] ASPIRIN ORAL 3-0 02-18 16:15: 12 Yes 81mg Take 81 mg by mouth in the morning. tablet [facility] busPIRone 10 mg tablet 2022-0 02-18 16:15: 12 Yes 10mg Take 1 tablet by mouth in the morning and 1 tablet in the evening. [facility] rivaroxaban 15 mg tablet 0 02-18 16:15: 12 Yes 15mg Take 1 tablet by mouth in the morning. [facility] ASPIRIN [facility]AL 20[facility]-0 02-18 16:15: 12 Yes 81mg Take 81 mg by mouth in the morning. tablet [facility] busPIRone 10 mg tablet 2022-0 02-18 16:15: 12 Yes 10mg Take 1 tablet by mouth in the morning and 1 tablet in the evening. [facility] rivaroxaban 15 mg tablet 0 02-18 16:15: 12 Yes 15mg Take 1 tablet by mouth in the morning. [facility] ASPIRIN ORAL 2022-0 02-18 16:15: 12 Yes 81mg Take 81 mg by mouth in the morning. tablet [facility] busPIRone 10 mg tablet 0 02-18 16:15: 12 Yes 10mg Take 1 tablet by mouth in the morning and 1 tablet in the evening. [facility] rivaroxaban 15 mg tablet 0 02-18 16:15: 12 Yes 15mg Take 1 tablet by mouth in the morning. [facility] ASPIRIN ORAL 2022-0 02-18 16:15: 12 Yes 81mg Take 81 mg by mouth in the morning. tablet [facility] busPIRone 10 mg tablet 0 02-18 16:15: 12 Yes 10mg Take 1 tablet by mouth in the morning and 1 tablet in the evening. [facility] mg tablet 2022-0 02-18 16:15: 12 Yes 15mg Take 1 tablet by mouth in the morning. [facility] ASPIRIN ORAL 2022-0 02-18 16:15: 12 Yes 81mg Take 81 mg by mouth in the morning. tablet [facility] busPIRone 10 mg tablet 2022-0 02-18 16:15: 12 Yes 10mg Take 1 tablet by mouth in the morning and 1 tablet in the evening. [facility] rivaroxaban 15 mg tablet 2022-0 02-18 16:15: 12 Yes 15mg Take 1 tablet by mouth in the morning. [facility] ASPIRIN ORAL 3-0 02-18 16:15: 12 Yes 81mg Take 81 mg by mouth in the morning. tablet [facility] busPIRone 10 mg tablet 2022-0 02-18 16:15: 12 Yes 10mg Take 1 tablet by mouth in the morning and 1 tablet in the evening. [facility] rivaroxaban 15 mg tablet 2022-0 02-18 16:15: 12 Yes 15mg Take 1 tablet by mouth in the morning. [facility] ASPIRIN ORAL 2022-0 02-18 16:15: 12 Yes 81mg Take 81 mg by mouth in the morning. tablet [facility] busPIRone 10 mg tablet 2022-0 02-18 16:15: 12 Yes 10mg Take 1 tablet by mouth in the morning and 1 tablet in the evening. [facility] rivaroxaban 15 mg tablet 0 02-18 16:15: 12 Yes 15mg Take 1 tablet by mouth in the morning. [facility] ASPIRIN ORAL 2022-0 02-18 16:15: 12 Yes 81mg Take 81 mg by mouth in the morning. tablet [facility] busPIRone 10 mg tablet 2022-0 02-18 16:15: 12 Yes 10mg Take 1 tablet by mouth in the morning and 1 tablet in the evening. [facility] rivaroxaban 15 mg tablet 2022-0 02-18 16:15: 12 Yes 15mg Take 1 tablet by mouth in the morning. [facility] ASPIRIN ORAL 3-0 02-18 16:15: 12 Yes 81mg Take 81 mg by mouth in the morning. tablet [facility] busPIRone 10 mg tablet 2022-0 02-18 16:15: 12 Yes 10mg Take 1 tablet by mouth in the morning and 1 tablet in the evening. [facility] riv[facility] 15 mg tablet 2022-0 02-18 16:15: 12 Yes 15mg Take 1 tablet by mouth in the morning. [facility] ASPIRIN ORAL 0 02-18 16:15: 12 Yes 81mg Take 81 mg by mouth in the morning. tablet [facility] busPIRone 10 mg tablet 02-18 16:15: 12 Yes 10mg Take 1 tablet by mouth in the morning and 1 tablet in the evening. [facility] rivaroxaban 15 mg tablet 0 02-18 16:15: 12 Yes 15mg Take 1 tablet by mouth in the morning. [facility] ASPIRIN ORAL 0 02-18 16:15: 12 Yes 81mg Take 81 mg by mouth in the morning. tablet [facility] busPIRone 10 mg tablet 0 02-18 16:15: 12 Yes 10mg Take 1 tablet by mouth in the morning and 1 tablet in the evening. [facility] rivaroxaban 15 mg tablet 02-18 16:15: 12 Yes 15mg Take 1 tablet by mouth in the morning. [facility] ASPIRIN ORAL 02-18 16:15: 12 Yes 81mg Take 81 mg by mouth in the morning. tablet [facility] predniSONE 20 mg tablet 0 02-18 00:00: 00 02-22 04:59 :00 No [id number] 40mg Take 2 tablets by mouth in the morning for 3 days. [facility] predniSONE 20 mg tablet 0 02-18 00:00: 00 02-22 04:59 :00 No [id number] 40mg Take 2 tablets by mouth in the morning for 3 days. [facility] predniSONE 20 mg tablet 02-18 00:00: 00 02-22 04:59 :00 No [id number] 40mg Take 2 tablets by mouth in the morning for 3 days. [facility] midodrine 5 mg tablet 02-17 00:00: 00 Yes [id number] 5mg Take 1 tablet by mouth every 8 (eight) hours as needed (Hypotensi on SBP <95 or DBP <50). [facility] midodrine 5 mg tablet 02-17 00:00: 00 Yes [id number] 5mg Take 1 tablet by mouth every 8 (eight) hours as needed (Hypotensi on SBP <95 or DBP <50). [facility] midodrine 5 mg tablet 02-17 00:00: 00 Yes [id number] 5mg Take 1 tablet by mouth every 8 (eight) hours as needed (Hypotensi on SBP <95 or DBP <50). [facility] midodrine 5 mg tablet 02-17 00:00: 00 Yes [id number] 5mg Take 1 tablet by mouth every 8 (eight) hours as needed (Hypotensi on SBP <95 or DBP <50). [facility] midodrine 5 mg tablet 02-17 00:00: 00 Yes [id number] 5mg Take 1 tablet by mouth every 8 (eight) hours as needed (Hypotensi on SBP <95 or DBP <50). [facility] midodrine 5 mg tablet 02-17 00:00: 00 Yes [id number] 5mg Take 1 tablet by mouth every 8 (eight) hours as needed (Hypotensi on SBP <95 or DBP <50). [facility] midodrine 5 mg tablet 02-17 00:00: 00 Yes [id number] 5mg Take 1 tablet by mouth every 8 (eight) hours as needed (Hypotensi on SBP <95 or DBP <50). [facility] midodrine 5 mg tablet 02-17 00:00: 00 Yes [id number] 5mg Take 1 tablet by mouth every 8 (eight) hours as needed (Hypotensi on SBP <95 or DBP <50). [facility] midodrine 5 mg tablet 02-17 00:00: 00 Yes [id number] 5mg Take 1 tablet by mouth every 8 (eight) hours as needed (Hypotensi on SBP <95 or DBP <50). [facility] midodrine 5 mg tablet 02-17 00:00: 00 Yes [id number] 5mg Take 1 tablet by mouth every 8 (eight) hours as needed (Hypotensi on SBP <95 or DBP <50). [facility] midodrine 5 mg tablet 0 02-17 00:00: 00 Yes [id number] 5mg Take 1 tablet by mouth every 8 (eight) hours as needed (Hypotensi on SBP <95 or DBP <50). [facility] midodrine 5 mg tablet 0 02-17 00:00: 00 Yes [id number] 5mg Take 1 tablet by mouth every 8 (eight) hours as needed (Hypotensi on SBP <95 or DBP <50). [facility] midodrine 5 mg tablet 02-17 00:00: 00 Yes [id number] 5mg Take 1 tablet by mouth every 8 (eight) hours as needed (Hypotensi on SBP <95 or DBP <50). [facility] midodrine (PROAMATINE ) tablet 5 mg 02-16 19:00: 00 Yes 5mg 5 mg, Oral, Q8H, First dose on Tue02/16/23 at 1400, Until Discontinu ed, Routine [facility] rivaroxaban (XARELTO) tablet 15 mg 02-16 14:00: 00 Yes 15mg 15 mg, Oral, DAILY, First dose on Tue02/16/23 at 0900, Until Discontinu ed, Routine [facility] montelukast (SINGULAIR) tablet 10 mg 02-16 14:00: 00 Yes 10mg 10 mg, Oral, DAILY, First dose on Tue02/16/23 at 0900, Until Discontinu ed, Routine [facility] memantine (NAMENDA) tablet 5 mg 02-16 14:00: 00 Yes 5mg 5 mg, Oral, DAILY, First dose on Tue02/16/23 at 0900, Until Discontinu ed, Routine
chemistry faculty member approving Restricted medication : DEDRICK TOTH [facility] donepeziL (ARICEPT) tablet 5 mg 02-16 14:00: 00 Yes 5mg 5 mg, Oral, DAILY, First dose on Tue02/16/23 at 0900, Until Discontinu ed, Routine [facility] aspirin EC tablet 81 mg 02-16 14:00: 00 Yes 81mg 81 mg, Oral, DAILY, First dose on Tue02/16/23 at 0900, Until Discontinu ed [facility] docusate (COLACE) capsule 100 mg 02-16 14:00: 00 Yes 100mg 100 mg, Oral, DAILY, First dose on Tue02/16/23 at 0900, Until Discontinu ed, Routine [facility] predniSONE (DELTASONE) tablet 40 mg 02-16 14:00: 00 02-21 13:59 :00 No 40mg 40 mg, Oral, DAILY, 5 doses, First dose on Tue02/16/23 at 0900, Last dose on Tue02/20/23 at 0900, Routine [facility] sulfur hexafluorid e microsphr (LUMASON) injection 5 mL 02-16 14:00: 00 02-16 14:00 :00 No [id number] 5mL 5 mL, Intravenou s, ONCE, 1 dose, On Tue02/16/23 at 0900, Routine
chemistry faculty member approving Restricted medication : STEFFANIE REYES [facility] budesonide- formoteroL (SYMBICORT) 160-4.5 mcg/actuati on inhaler 2 Puff 02-16 13:00: 00 Yes 2{puff} 2 Puff, Inhalation , BID, First dose on Tue02/16/23 at 0800, Until Discontinu ed [facility] busPIRone (BUSPAR) tablet 10 mg 02-16 13:00: 00 Yes 10mg 10 mg, Oral, BID, First dose on Tue02/16/23 at 0800, Until Discontinu ed, Routine [facility] methylpredn isolone sod succ (SOLU-MEDRO L) injection 60 mg 02-16 05:43: 00 02-16 05:51 :00 No 60mg 60 mg, Intravenou s, ONCE, 1 dose, On Tue02/16/23 at 0045, 2 mL [facility] levoFLOXaci n in D5W (LEVAQUIN) 500 [...]
Re stricted use approved by: ADC PROVIDER [facility] doxycycline hyclate (Vibramycin ) capsule 100 mg 02-16 01:02: 11 02-16 21:57 :07 No 100mg 100 mg, Oral, Q12H ABX, 10 doses, First dose on Tue02/15/23 at 2015, Last dose on Tue02/20/23 at 0815, MICHAEL
Re ason for Anti-Infec tive: Documented Infection< br>Documen anirudh Infection Site: Respirator y
Durat ion of Therapy: 7 days [facility] NaCl 0.9% (NS) IV infusion 1,000 mL 02-16 01:00: 00 02-16 12:47 :05 No 1000mL at 100 mL/hr, IV Infusion, CONTINUOUS , Starting on Tue02/15/23 at 2000, Until Tue02/16/23 at 0747, Routine [facility] ipratropium -albuteroL (DUONEB) 0.5 mg-3 mg(2.5 mg base)/3 mL nebulizer solution 3 mL 02-16 00:53: 35 Yes 3mL 3 mL, Inhalation , Q6HPRN, Starting on Tue02/15/23 at 1953, Until Discontinu ed, Routine, Wheezing, Shortness of Breath [facility] HYDROcodone -acetaminop hen (NORCO) 10-325 mg tablet 1 tablet 02-16 00:52: 26 Yes 1{tbl} 1 tablet, Oral, Q6HPRN, Starting on Tue02/15/23 at 1951, Until Discontinu ed, Routine, Pain (scale 7-10) [facility] traMADoL (ULTRAM) tablet 50 mg 02-16 00:52: 22 02-18 00:51 :22 No 50mg 50 mg, Oral, Q8HPRN, Starting on Tue02/15/23 at 1951, Until Elizabeth 02/17/23 at 1950, Routine, Pain (scale 4-6) [facility] acetaminoph en (TYLENOL) tablet 650 mg 02-16 00:52: 16 Yes 650mg 650 mg, Oral, Q6HPRN, Starting on Tue02/15/23 at 1951, Until Discontinu ed, Routine, Pain (scale 1-3) [facility] NaCl 0.9% (NS) bolus infusion 1,000 mL 02-15 22:15: 00 02-15 22:51 :00 No 1000mL at 999 mL/hr, 1,000 mL, IV Infusion, ONCE, 1 dose, On Tue02/15/23 at 1715, [facility] NaCl 0.9% (NS) bolus infusion 1,000 mL 02-15 21:30: 00 02-15 22:43 :00 No 1000mL at 999 mL/hr, 1,000 mL, IV Infusion, ONCE, 1 dose, On Tue02/15/23 at 1630, [facility] NaCl 0.9% (NS) bolus infusion 1,000 mL 02-15 20:45: 00 02-15 22:43 :00 No 1000mL at 999 mL/hr, 1,000 mL, IV Infusion, ONCE, 1 dose, On Tue02/15/23 at 1545, [facility] ipratropium -albuteroL (DUONEB) 0.5 mg-3 mg(2.5 mg base)/3 mL nebulizer solution 3 mL 02-05 22:15: 00 02-06 10:14 :00 No 3mL 3 mL, Inhalation , ONCE, 1 dose, On 02/05/23 at 1715, [facility] ipratropium -albuteroL (DUONEB) 0.5 mg-3 mg(2.5 mg base)/3 mL nebulizer solution 3 mL 02-05 21:15: 00 02-05 20:17 :00 No 3mL 3 mL, Inhalation , ONCE, 1 dose, On 02/05/23 at 1615, [facility] predniSONE (DELTASONE) tablet 40 mg 02-05 20:15: 00 02-05 20:18 :00 No 40mg 40 mg, Oral, ONCE, 1 dose, On 02/05/23 at 1515, [facility] levalbutero l (XOPENEX) nebulizer solution 2.5 mg 02-04 21:15: 00 02-04 20:31 :00 No 2.5mg 2.5 mg, Inhalation , ONCE, 1 dose, On Tue02/04/23 at 1615, Routine [facility] ipratropium (ATROVENT) 0.02 % nebulizer solution 0.5 mg 02-04 21:15: 00 02-04 20:31 :00 No .5mg 0.5 mg, Inhalation , ONCE, 1 dose, On Tue02/04/23 at 1615, [facility] albuterol 90 mcg/actuati on inhaler 02-04 00:00: 00 Yes [id number] 2{puff} Inhale 2 Puffs every 4 (four) hours as needed for Wheezing or Shortness of Breath. [facility] albuterol 90 mcg/actuati on inhaler 02-04 00:00: 00 Yes [id number] 2{puff} Inhale 2 Puffs every 4 (four) hours as needed for Wheezing or Shortness of Breath. [facility] albuterol 90 mcg/actuati on inhaler 02-04 00:00: 00 Yes [id number] 2{puff} Inhale 2 Puffs every 4 (four) hours as needed for Wheezing or Shortness of Breath. [facility] albuterol 90 mcg/actuati on inhaler 02-04 00:00: 00 Yes [id number] 2{puff} Inhale 2 Puffs every 4 (four) hours as needed for Wheezing or Shortness of Breath. [facility] albuterol 90 mcg/actuati on inhaler 02-04 00:00: 00 Yes [id number] 2{puff} Inhale 2 Puffs every 4 (four) hours as needed for Wheezing or Shortness of Breath. [facility] albuterol 90 mcg/actuati on inhaler 02-04 00:00: 00 Yes [id number] 2{puff} Inhale 2 Puffs every 4 (four) hours as needed for Wheezing or Shortness of Breath. [facility] albuterol 90 mcg/actuati on inhaler 02-04 00:00: 00 Yes [id number] 2{puff} Inhale 2 Puffs every 4 (four) hours as needed for Wheezing or Shortness of Breath. [facility] albuterol 90 mcg/actuati on inhaler 02-04 00:00: 00 Yes [id number] 2{puff} Inhale 2 Puffs every 4 (four) hours as needed for Wheezing or Shortness of Breath. [facility] albuterol 90 mcg/actuati on inhaler 02-04 00:00: 00 Yes [id number] 2{puff} Inhale 2 Puffs every 4 (four) hours as needed for Wheezing or Shortness of Breath. [facility] albuterol 90 mcg/actuati on inhaler 02-04 00:00: 00 Yes [id number] 2{puff} Inhale 2 Puffs every 4 (four) hours as needed for Wheezing or Shortness of Breath. [facility] albuterol 90 mcg/actuati on inhaler 02-04 00:00: 00 04-19 00:00 :00 No [id number] 2{puff} Inhale 2 Puffs every 4 (four) hours as needed for Wheezing or Shortness of Breath. [facility] albuterol 90 mcg/actuati on inhaler 02-04 00:00: 00 04-19 00:00 :00 No [id number] 2{puff} Inhale 2 Puffs every 4 (four) hours as needed for Wheezing or Shortness of Breath. [facility] ipratropium -albuteroL (DUONEB) 0.5 mg-3 mg(2.5 mg base)/3 mL nebulizer solution 3 mL 02-03 21:00: 00 Yes 3mL 3 mL, Inhalation , QID, First dose on Tue02/03/23 at 1600, Until Discontinu ed, Routine [facility] methylpredn isolone sod succ (SOLU-MEDRO L) injection 125 mg 02-03 18:45: 00 02-03 18:16 :00 No 125mg 125 mg, Intravenou s, ONCE, 1 dose, On Tue02/03/23 at 1345, 2 mL [facility] ipratropium -albuteroL (DUONEB) 0.5 mg-3 mg(2.5 mg base)/3 mL nebulizer solution 3 mL 02-02 23:15: 00 02-02 22:13 :00 No 3mL 3 mL, Inhalation , ONCE, 1 dose, On Tue02/02/23 at 1815, Routine [facility] albuterol 90 mcg/actuati on inhaler 01-31 00:00: 00 Yes [id number] 2{puff} Inhale 2 Puffs every 4 (four) hours as needed for Wheezing, Shortness of Breath or Bronchospa sm. [facility] fluticasone propion-bella meteroL (ADVAIR DISKUS) 250-50 mcg/dose inhalation disk 01-31 00:00: 00 Yes [id number] 1{puff} Inhale 1 Puff in the morning and 1 Puff in the evening. [facility] montelukast 10 mg tablet 01-31 00:00: 00 Yes [id number] 10mg Take 1 tablet by mouth in the morning. [facility] tiotropium 18 mcg inhalation 01-31 00:00: 00 Yes [id number] 18ug Inhale 1 capsule in the morning. [facility] albuterol 90 mcg/actuati on inhaler 01-31 00:00: 00 Yes [id number] 2{puff} Inhale 2 Puffs every 4 (four) hours as needed for Wheezing, Shortness of Breath or Bronchospa sm. [facility] fluticasone propion-bella meteroL (ADVAIR DISKUS) 250-50 mcg/dose inhalation disk 01-31 00:00: 00 Yes [id number] 1{puff} Inhale 1 Puff in the morning and 1 Puff in the evening. [facility] montelukast 10 mg tablet 01-31 00:00: 00 Yes [id number] 10mg Take 1 tablet by mouth in the morning. [facility] tiotropium 18 mcg inhalation 01-31 00:00: 00 Yes [id number] 18ug Inhale 1 capsule in the morning. [facility] albuterol 90 mcg/actuati on inhaler 01-31 00:00: 00 Yes [id number] 2{puff} Inhale 2 Puffs every 4 (four) hours as needed for Wheezing, Shortness of Breath or Bronchospa sm. [facility] fluticasone propion-bella meteroL (ADVAIR DISKUS) 250-50 mcg/dose inhalation disk 01-31 00:00: 00 Yes [id number] 1{puff} Inhale 1 Puff in the morning and 1 Puff in the evening. [facility] montelukast 10 mg tablet 01-31 00:00: 00 Yes [id number] 10mg Take 1 tablet by mouth in the morning. [facility] tiotropium 18 mcg inhalation 0 15 00:00: 00 Yes [id number] 18ug Inhale 1 capsule in the morning. [facility] albuterol 90 mcg/actuati on inhaler 2022-0 15 00:00: 00 Yes [id number] 2{puff} Inhale 2 Puffs every 4 (four) hours as needed for Wheezing, Shortness of Breath or Bronchospa sm. [facility] fluticasone propion-bella meteroL (ADVAIR DISKUS) 250-50 mcg/dose inhalation disk 2022-0 15 00:00: 00 Yes [id number] 1{puff} Inhale 1 Puff in the morning and 1 Puff in the evening. [facility] montelukast 10 mg tablet 2022-0 15 00:00: 00 Yes [id number] 10mg Take 1 tablet by mouth in the morning. [facility] tiotropium 18 mcg inhalation 2022-0 -15 00:00: 00 Yes [id number] 18ug Inhale 1 capsule in the morning. [facility] fluticasone propion-bella meteroL (ADVAIR DISKUS) 250-50 mcg/dose inhalation disk 2022-0 15 00:00: 00 Yes [id number] 1{puff} Inhale 1 Puff in the morning and 1 Puff in the evening. [facility] montelukast 10 mg tablet 2022-0 15 00:00: 00 Yes [id number] 10mg Take 1 tablet by mouth in the morning. [facility] tiotropium 18 mcg inhalation 2022-0 15 00:00: 00 Yes [id number] 18ug Inhale 1 capsule in the morning. [facility] fluticasone propion-bella meteroL (ADVAIR DISKUS) 250-50 mcg/dose inhalation disk 2022-0 15 00:00: 00 Yes [id number] 1{puff} Inhale 1 Puff in the morning and 1 Puff in the evening. [facility] montelukast 10 mg tablet 2022-0 15 00:00: 00 Yes [id number] 10mg Take 1 tablet by mouth in the morning. [facility] tiotropium 18 mcg inhalation 2022-0 -15 00:00: 00 Yes [id number] 18ug Inhale 1 capsule in the morning. [facility] fluticasone propion-bella meteroL (ADVAIR DISKUS) 250-50 mcg/dose inhalation disk 3-0 5-15 00:00: 00 Yes [id number] 1{puff} Inhale 1 Puff in the morning and 1 Puff in the evening. [facility] montelukast 10 mg tablet 3-0 5-15 00:00: 00 Yes [id number] 10mg Take 1 tablet by mouth in the morning. [facility] tiotropium 18 mcg inhalation 3-0 5-15 00:00: 00 Yes [id number] 18ug Inhale 1 capsule in the morning. [facility] fluticasone propion-bella meteroL (ADVAIR DISKUS) 250-50 mcg/dose inhalation disk 3-0 5-15 00:00: 00 Yes [id number] 1{puff} Inhale 1 Puff in the morning and 1 Puff in the evening. [facility] montelukast 10 mg tablet 2022-0 -15 00:00: 00 Yes [id number] 10mg Take 1 tablet by mouth in the morning. [facility] tiotropium 18 mcg inhalation 3-0 5-15 00:00: 00 Yes [id number] 18ug Inhale 1 capsule in the morning. [facility] fluticasone propion-bella meteroL (ADVAIR DISKUS) 250-50 mcg/dose inhalation disk 3-0 5-15 00:00: 00 Yes [id number] 1{puff} Inhale 1 Puff in the morning and 1 Puff in the evening. [facility] montelukast 10 mg tablet 3-0 5-15 00:00: 00 Yes [id number] 10mg Take 1 tablet by mouth in the morning. [facility] tiotropium 18 mcg inhalation 3-0 5-15 00:00: 00 Yes [id number] 18ug Inhale 1 capsule in the morning. [facility] fluticasone propion-bella meteroL (ADVAIR DISKUS) 250-50 mcg/dose inhalation disk 3-0 5-15 00:00: 00 Yes [id number] 1{puff} Inhale 1 Puff in the morning and 1 Puff in the evening. [facility] montelukast 10 mg tablet 2022-0 -15 00:00: 00 Yes [id number] 10mg Take 1 tablet by mouth in the morning. [facility] tiotropium 18 mcg inhalation 3-0 5-15 00:00: 00 Yes [id number] 18ug Inhale 1 capsule in the morning. [facility] fluticasone propion-bella meteroL (ADVAIR DISKUS) 250-50 mcg/dose inhalation disk 3-0 5-15 00:00: 00 Yes [id number] 1{puff} Inhale 1 Puff in the morning and 1 Puff in the evening. [facility] montelukast 10 mg tablet 2022-0 -15 00:00: 00 Yes [id number] 10mg Take 1 tablet by mouth in the morning. [facility] tiotropium 18 mcg inhalation 2022-0 -15 00:00: 00 Yes [id number] 18ug Inhale 1 capsule in the morning. [facility] fluticasone propion-bella meteroL (ADVAIR DISKUS) 250-50 mcg/dose inhalation disk 2022-0 15 00:00: 00 Yes [id number] 1{puff} Inhale 1 Puff in the morning and 1 Puff in the evening. [facility] montelukast 10 mg tablet 2022-0 -15 00:00: 00 Yes [id number] 10mg Take 1 tablet by mouth in the morning. [facility] tiotropium 18 mcg inhalation 3-0 5-15 00:00: 00 Yes [id number] 18ug Inhale 1 capsule in the morning. [facility] fluticasone propion-bella meteroL (ADVAIR DISKUS) 250-50 mcg/dose inhalation disk 3-0 5-15 00:00: 00 Yes [id number] 1{puff} Inhale 1 Puff in the morning and 1 Puff in the evening. [facility] montelukast 10 mg tablet 2023-0 5-15 00:00: 00 Yes [id number] 10mg Take 1 tablet by mouth in the morning. [facility] tiotropium 18 mcg inhalation 2022-0 5-15 00:00: 00 Yes [id number] 18ug Inhale 1 capsule in the morning. [facility] fluticasone propion-bella meteroL (ADVAIR DISKUS) 250-50 mcg/dose inhalation disk 2022-0 5-15 00:00: 00 Yes [id number] 1{puff} Inhale 1 Puff in the morning and 1 Puff in the evening. [facility] montelukast 10 mg tablet 2022-0 5-15 00:00: 00 Yes [id number] 10mg Take 1 tablet by mouth in the morning. [facility] tiotropium 18 mcg inhalation 2022-0 5-15 00:00: 00 Yes [id number] 18ug Inhale 1 capsule in the morning. [facility] montelukast 10 mg tablet 2022-0 -15 00:00: 00 Yes [id number] 10mg Take 1 tablet by mouth in the morning. [facility] montelukast 10 mg tablet 2022-0 -15 00:00: 00 Yes [id number] 10mg Take 1 tablet by mouth in the morning. [facility] montelukast 10 mg tablet 2022-0 -15 00:00: 00 Yes [id number] 10mg Take 1 tablet by mouth in the morning. [facility] montelukast 10 mg tablet 2022-0 5-15 00:00: 00 Yes [id number] 10mg Take 1 tablet by mouth in the morning. [facility] montelukast 10 mg tablet 3-0 5-15 00:00: 00 Yes [id number] 10mg Take 1 tablet by mouth in the morning. [facility] montelukast 10 mg tablet 3-0 5-15 00:00: 00 Yes [id number] 10mg Take 1 tablet by mouth in the morning. [facility] fluticasone propion-bella meteroL (ADVAIR DISKUS) 250-50 mcg/dose inhalation disk 15 00:00: 00 04-19 00:00 :00 No [id number] 1{puff} Inhale 1 Puff in the morning and 1 Puff in the evening. [facility] tiotropium 18 mcg inhalation 15 00:00: 00 04-19 00:00 :00 No [id number] 18ug Inhale 1 capsule in the morning. [facility] fluticasone propion-bella meteroL (ADVAIR DISKUS) 250-50 mcg/dose inhalation disk 01-31 00:00: 00 04-19 00:00 :00 No [id number] 1{puff} Inhale 1 Puff in the morning and 1 Puff in the evening. [facility] tiotropium 18 mcg inhalation 01-31 00:00: 00 04-19 00:00 :00 No [id number] 18ug Inhale 1 capsule in the morning. [facility] albuterol 90 mcg/actuati on inhaler 01-31 00:00: 00 02-04 00:00 :00 No [id number] 2{puff} Inhale 2 Puffs every 4 (four) hours as needed for Wheezing, Shortness of Breath or Bronchospa sm. [facility] ipratropium -albuteroL (DUONEB) 0.5 mg-3 mg(2.5 mg base)/3 mL nebulizer solution 3 mL 01-29 14:30: 00 01-29 13:29 :00 No 3mL 3 mL, Inhalation , ONCE, 1 dose, On 01/29/23 at 0930, MICHAEL [facility] predniSONE (DELTASONE) tablet 60 mg 01-29 13:30: 00 01-29 13:22 :00 No 60mg 60 mg, Oral, ONCE, 1 dose, On 01/29/23 at 0830, MICHAEL [facility] ipratropium -albuteroL (DUONEB) 0.5 mg-3 mg(2.5 mg base)/3 mL nebulizer solution 3 mL 01-27 13:00: 00 Yes 3mL 3 mL, Inhalation , QID, First dose on Tue01/27/23 at 0800, Until Discontinu ed, Routine [facility] ipratropium -albuteroL (DUONEB) 0.5 mg-3 mg(2.5 mg base)/3 mL nebulizer solution 3 mL 01-24 18:00: 00 01-24 18:15 :00 No 3mL 3 mL, Inhalation , ONCE, 1 dose, On Tue01/24/23 at 1300, MICHAEL [facility] furosemide (LASIX) injection 40 mg 01-24 18:00: 00 01-24 18:42 :00 No 40mg 40 mg, IV Push, ONCE, 1 dose, On Tue01/24/23 at 1300, MICHAEL [facility] aspirin tablet 325 mg 01-24 18:00: 00 01-24 18:44 :00 No 325mg 325 mg, Oral, ONCE, 1 dose, On Tue01/24/23 at 1300, STAT [facility] busPIRone 10 mg tablet 01-24 15:48: 43 Yes 10mg Take 1 tablet by mouth in the morning and 1 tablet in the evening. [facility] rivaroxaban 15 mg tablet 01-24 15:48: 43 Yes 15mg Take 1 tablet by mouth in the morning. [facility] ASPIRIN ORAL 01-24 15:48: 43 Yes 81mg Take 81 mg by mouth in the morning. tablet [facility] busPIRone 10 mg tablet 01-24 15:48: 43 Yes 10mg Take 1 tablet by mouth in the morning and 1 tablet in the evening. [facility] rivaroxaban 15 mg tablet 01-24 15:48: 43 Yes 15mg Take 1 tablet by mouth in the morning. [facility] ASPIRIN ORAL 01-24 15:48: 43 Yes 81mg Take 81 mg by mouth in the morning. tablet [facility] busPIRone 10 mg tablet 2023-0 5-08 15:48: 43 Yes 10mg Take 1 tablet by mouth in the morning and 1 tablet in the evening. [facility] rivaroxaban 15 mg tablet 2023-0 5-08 15:48: 43 Yes 15mg Take 1 tablet by mouth in the morning. [facility] ASPIRIN ORAL 2023-0 5-08 15:48: 43 Yes 81mg Take 81 mg by mouth in the morning. tablet [facility] busPIRone 10 mg tablet 3-0 5-08 15:48: 43 Yes 10mg Take 1 tablet by mouth in the morning and 1 tablet in the evening. [facility] rivaroxaban 15 mg tablet 2022-0 5-08 15:48: 43 Yes 15mg Take 1 tablet by mouth in the morning. [facility] ASPIRIN ORAL 2023-0 5-08 15:48: 43 Yes 81mg Take 81 mg by mouth in the morning. tablet [facility] busPIRone 10 mg tablet 3-0 5-08 15:48: 43 Yes 10mg Take 1 tablet by mouth in the morning and 1 tablet in the evening. [facility] rivaroxaban 15 mg tablet 2022-0 5-08 15:48: 43 Yes 15mg Take 1 tablet by mouth in the morning. [facility] ASPIRIN ORAL 2023-0 5-08 15:48: 43 Yes 81mg Take 81 mg by mouth in the morning. tablet [facility] busPIRone 10 mg tablet 3-0 5-08 15:48: 43 Yes 10mg Take 1 tablet by mouth in the morning and 1 tablet in the evening. [facility] rivaroxaban 15 mg tablet 3-0 5-08 15:48: 43 Yes 15mg Take 1 tablet by mouth in the morning. [facility] ASPIRIN ORAL 2023-0 5-08 15:48: 43 Yes 81mg Take 81 mg by mouth in the morning. tablet [facility] busPIRone 10 mg tablet 2023-0 5-08 15:48: 43 Yes 10mg Take 1 tablet by mouth in the morning and 1 tablet in the evening. [facility] rivaroxaban 15 mg tablet 2023-0 5-08 15:48: 43 Yes 15mg Take 1 tablet by mouth in the morning. [facility] ASPIRIN ORAL 2023-0 5-08 15:48: 43 Yes 81mg Take 81 mg by mouth in the morning. tablet [facility] busPIRone 10 mg tablet 2023-0 5-08 15:48: 43 Yes 10mg Take 1 tablet by mouth in the morning and 1 tablet in the evening. [facility] rivaroxaban 15 mg tablet 2023-0 5-08 15:48: 43 Yes 15mg Take 1 tablet by mouth in the morning. [facility] ASPIRIN ORAL 2023-0 5-08 15:48: 43 Yes 81mg Take 81 mg by mouth in the morning. tablet [facility] busPIRone 10 mg tablet 3-0 5-08 15:48: 43 Yes 10mg Take 1 tablet by mouth in the morning and 1 tablet in the evening. [facility] rivaroxaban 15 mg tablet 3-0 5-08 15:48: 43 Yes 15mg Take 1 tablet by mouth in the morning. [facility] ASPIRIN ORAL 2023-0 5-08 15:48: 43 Yes 81mg Take 81 mg by mouth in the morning. tablet [facility] busPIRone 10 mg tablet 3-0 5-08 15:48: 43 Yes 10mg Take 1 tablet by mouth in the morning and 1 tablet in the evening. [facility] rivaroxaban 15 mg tablet 3-0 5-08 15:48: 43 Yes 15mg Take 1 tablet by mouth in the morning. [facility] ASPIRIN ORAL 2023-0 5-08 15:48: 43 Yes 81mg Take 81 mg by mouth in the morning. tablet [facility] busPIRone 10 mg tablet 2023-0 5-08 15:48: 43 Yes 10mg Take 1 tablet by mouth in the morning and 1 tablet in the evening. [facility] rivaroxaban 15 mg tablet 2023-0 5-08 15:48: 43 Yes 15mg Take 1 tablet by mouth in the morning. [facility] ASPIRIN ORAL 2023-0 5-08 15:48: 43 Yes 81mg Take 81 mg by mouth in the morning. tablet [facility] busPIRone 10 mg tablet 01-24 15:48: 43 Yes 10mg Take 1 tablet by mouth in the morning and 1 tablet in the evening. [facility] rivaroxaban 15 mg tablet 01-24 15:48: 43 Yes 15mg Take 1 tablet by mouth in the morning. [facility] ASPIRIN ORAL 01-24 15:48: 43 Yes 81mg Take 81 mg by mouth in the morning. tablet [facility] busPIRone 10 mg tablet 01-24 15:48: 43 Yes 10mg Take 1 tablet by mouth in the morning and 1 tablet in the evening. [facility] rivaroxaban 15 mg tablet 01-24 15:48: 43 Yes 15mg Take 1 tablet by mouth in the morning. [facility] ASPIRIN ORAL 01-24 15:48: 43 Yes 81mg Take 81 mg by mouth in the morning. tablet [facility] levalbutero l (XOPENEX) nebulizer solution 1.25 mg 01-23 00:15: 00 01-22 23:35 :00 No 1.25mg 1.25 mg, Inhalation , ONCE, 1 dose, On 01/22/23 at 1915, Routine [facility] ipratropium (ATROVENT) 0.02 % nebulizer solution 0.5 mg 01-22 23:30: 00 01-22 23:36 :00 No .5mg 0.5 mg, Inhalation , ONCE, 1 dose, On 01/22/23 at 1830, MICHAEL [facility] diltiazem (CARDIZEM) tablet 30 mg 01-21 23:00: 00 Yes 30mg 30 mg, Oral, Q6H, First dose on Tue01/21/23 at 1800, Until Discontinu ed, Routine [facility] methylpredn isolone sod succ (SOLU-MEDRO L) injection 125 mg 01-21 23:00: 00 Yes 125mg 125 mg, Intravenou s, Q6H, First dose on Tue01/21/23 at 1800, Until Discontinu ed, Routine [facility] ipratropium -albuteroL (DUONEB) 0.5 mg-3 mg(2.5 mg base)/3 mL nebulizer solution 3 mL 01-21 20:45: 00 01-21 19:54 :00 No 3mL 3 mL, Inhalation , ONCE, 1 dose, On Tue01/21/23 at 1545, Routine [facility] diltiazem (CARDIZEM IV) injection 15 mg 01-21 19:45: 00 01-21 20:06 :00 No 15mg 15 mg, IV Push, ONCE, 1 dose, On Tue01/21/23 at 1445, STAT
Fa culty member approving Restricted medication : LOUIS HONG [facility] NaCl 0.9% (NS) bolus infusion 1,000 mL 01-21 19:45: 00 01-21 22:17 :00 No 1000mL at 999 mL/hr, 1,000 mL, IV Infusion, ONCE, 1 dose, On Tue01/21/23 at 1445, STAT [facility] predniSONE 20 mg tablet 01-20 00:00: 00 01-25 04:59 :00 No [id number] 40mg Take 2 tablets by mouth in the morning for 4 days. [facility] predniSONE 20 mg tablet 01-20 00:00: 00 01-25 04:59 :00 No [id number] 40mg Take 2 tablets by mouth in the morning for 4 days. [facility] predniSONE 20 mg tablet 01-20 00:00: 00 01-25 04:59 :00 No [id number] 40mg Take 2 tablets by mouth in the morning for 4 days. [facility] predniSONE 20 mg tablet 01-20 00:00: 00 01-25 04:59 :00 No [id number] 40mg Take 2 tablets by mouth in the morning for 4 days. [facility] predniSONE 20 mg tablet 01-20 00:00: 00 01-25 04:59 :00 No [id number] 40mg Take 2 tablets by mouth in the morning for 4 days. [facility] predniSONE 20 mg tablet 01-20 00:00: 00 01-25 04:59 :00 No [id number] 40mg Take 2 tablets by mouth in the morning for 4 days. [facility] predniSONE 20 mg tablet 01-20 00:00: 00 01-25 04:59 :00 No [id number] 40mg Take 2 tablets by mouth in the morning for 4 days. [facility] enoxaparin (LOVENOX) injection 40 mg 01-19 22:00: 00 Yes 40mg 40 mg, Subcutaneo us, DAILY, First dose on Tue01/19/23 at 1700, Until Discontinu ed, Routine [facility] levalbutero l (XOPENEX) nebulizer solution 1.25 mg 01-19 21:00: 00 Yes 1.25mg 1.25 mg, Inhalation , QID, First dose (after last modificati on) on Tue01/19/23 at 1600, Until Discontinu ed, Routine [facility] iprat[facility] (ATROVENT) 0.02 % nebulizer solution 0.5 mg 01-19 21:00: 00 Yes .5mg 0.5 mg, Inhalation , QID, First dose (after last modificati on) on Tue01/19/23 at 1600, Until Discontinu ed, Routine [facility] busPIRone 10 mg tablet 01-19 19:49: 16 Yes 10mg Take 1 tablet by mouth in the morning and 1 tablet in the evening. [facility] rivaroxaban 15 mg tablet 01-19 19:49: 16 Yes 15mg Take 1 tablet by mouth in the morning. [facility] ASPIRIN ORAL 01-19 19:49: 16 Yes 81mg Take 81 mg by mouth in the morning. tablet [facility] busPIRone 10 mg tablet 2022-0 - 19:49: 16 Yes 10mg Take 1 tablet by mouth in the morning and 1 tablet in the evening. [facility] rivaroxaban 15 mg tablet 0 01-19 19:49: 16 Yes 15mg Take 1 tablet by mouth in the morning. [facility] ASPIRIN ORAL 2022-0 01-19 19:49: 16 Yes 81mg Take 81 mg by mouth in the morning. tablet [facility] busPIRone 10 mg tablet 0 01-19 19:49: 16 Yes 10mg Take 1 tablet by mouth in the morning and 1 tablet in the evening. [facility] rivaroxaban 15 mg tablet 0 01-19 19:49: 16 Yes 15mg Take 1 tablet by mouth in the morning. [facility] ASPIRIN ORAL 2022-0 01-19 19:49: 16 Yes 81mg Take 81 mg by mouth in the morning. tablet [facility] busPIRone 10 mg tablet 0 01-19 19:49: 16 Yes 10mg Take 1 tablet by mouth in the morning and 1 tablet in the evening. [facility] rivaroxaban 15 mg tablet 0 01-19 19:49: 16 Yes 15mg Take 1 tablet by mouth in the morning. [facility] ASPIRIN ORAL 2022-0 01-19 19:49: 16 Yes 81mg Take 81 mg by mouth in the morning. tablet [facility] busPIRone 10 mg tablet 2022-0 01-19 19:49: 16 Yes 10mg Take 1 tablet by mouth in the morning and 1 tablet in the evening. [facility] rivaroxaban 15 mg tablet 2022-0 01-19 19:49: 16 Yes 15mg Take 1 tablet by mouth in the morning. [facility] ASPIRIN ORAL 2022-0 - 19:49: 16 Yes 81mg Take 81 mg by mouth in the morning. tablet [facility] busPIRone 10 mg tablet 2022-0 01-19 19:49: 16 Yes 10mg Take 1 tablet by mouth in the morning and 1 tablet in the evening. [facility] rivaroxaban 15 mg tablet 01-19 19:49: 16 Yes 15mg Take 1 tablet by mouth in the morning. [facility] ASPIRIN ORAL 01-19 19:49: 16 Yes 81mg Take 81 mg by mouth in the morning. tablet [facility] benazepriL 10 mg tablet 01-19 17:28: 05 01-19 00:00 :00 No 10mg Take 1 tablet by mouth in the morning. [facility] potassium chloride (KCL-20 ORAL) 01-19 17:28: 01-19 00:00 :00 No 1{tbl} Take 1 tablet by mouth in the morning and 1 tablet in the evening. [facility] aspirin chewable tablet 81 mg 01-19 14:00: 00 Yes 81mg 81 mg, Oral, DAILY, First dose on Tue01/19/23 at 0900, Until Discontinu ed [facility] predniSONE (DELTASONE) tablet 40 mg 01-19 14:00: 00 01-24 13:59 :00 No 40mg 40 mg, Oral, DAILY, 5 doses, First dose on Tue01/19/23 at 0900, Last dose on Tue01/23/23 at 0900, Routine [facility] busPIRone (BUSPAR) tablet 10 mg 01-19 13:00: 00 Yes 10mg 10 mg, Oral, BID, First dose on Tue01/19/23 at 0800, Until Discontinu ed, Routine [facility] ipratropium (ATROVENT) 0.02 % nebulizer solution 0.5 mg 01-19 13:00: 00 01-19 19:13 :37 No .5mg 0.5 mg, Inhalation , TID, First dose (after last modificati on) on Tue01/19/23 at 0800, Until Discontinu ed, Routine [facility] levalbutero l (XOPENEX) nebulizer solution 1.25 mg 01-19 13:00: 00 01-19 19:13 :37 No 1.25mg 1.25 mg, Inhalation , TID, First dose on Tue01/19/23 at 0800, Until Discontinu ed, Routine [facility] sodium polystyrene sulfonate (KAYEXALATE ) 15 gram/60 mL suspension 15 g 01-19 13:00: 00 01-19 13:22 :00 No 15g 15 g, Oral, ONCE, 1 dose, On Tue01/19/23 at 0800, Routine [facility] ipratropium (ATROVENT) 0.02 % nebulizer solution 0.5 mg 01-19 09:00: 00 01-19 12:09 :19 No .5mg 0.5 mg, Inhalation , Q4H, First dose on Tue01/19/23 at 0400, Until Discontinu ed, Routine [facility] levoFLOXaci n (LEVAQUIN) tablet 500 mg 01-19 08:15: 00 01-24 08:14 :00 No 500mg 500 mg, Oral, Q24H ABX, 5 doses, First dose on Tue01/19/23 at 0315, Last dose on Tue01/23/23 at 0315, MICHAEL
Re ason for Anti-Infec tive: Empiric Therapy for Suspected Infection< br>Empiric Therapy Site: Respirator y
Durat ion of therapy: 5 days [facility] guaiFENesin 100 mg/5 mL solution 200 mg 01-19 08:04: 52 Yes 200mg 200 mg, Oral, Q6HPRN, Starting on Tue01/19/23 at 0304, Until Discontinu ed, Routine, Cough [facility] ondansetron (ZOFRAN (PF)) injection 4 mg 01-19 08:03: 53 Yes 4mg 4 mg, Slow IV Push, Q6HPRN, Starting on Tue01/19/23 at 0303, Until Discontinu ed, Routine, Nausea and Vomiting (N/V) [facility] morpHINE (2 mg/mL) injection 2 mg 01-19 08:03: 43 01-20 08:02 :43 No 2mg 2 mg, Slow IV Push, Q4HPRN, Starting on Tue01/19/23 at 0303, Until Elizabeth 01/20/23 at 0302, Routine, Pain (scale 7-10) [facility] HYDROcodone -acetaminop hen (NORCO 5) 5-325 mg tablet 1 tablet 01-19 08:03: 39 01-21 08:02 :39 No 1{tbl} 1 tablet, Oral, Q6HPRN, Starting on Tue01/19/23 at 0303, Until Tue01/21/23 at 0302, Routine, Pain (scale 4-6) [facility] acetaminoph en (TYLENOL) tablet 650 mg 01-19 08:03: 35 Yes 650mg 650 mg, Oral, Q6HPRN, Starting on Tue01/19/23 at 030, Until Discontinu ed, Routine, Pain (scale 1-3) [facility] levalbutero l (XOPENEX) nebulizer solution 1.25 mg 01-19 07:30: 00 01-19 07:08 :00 No 1.25mg 1.25 mg, Inhalation , ONCE, 1 dose, On Tue01/19/23 at 0230, Routine [facility] dexamethaso ne sod phos PF injection 10 mg 01-19 06:58: 00 01-19 07:06 :00 No 10mg 10 mg, Oral, ONCE, 1 dose, On Tue01/19/23 at 0200, 1 mL [facility] ipratropium (ATROVENT) 0.02 % nebulizer solution 0.5 mg 01-19 06:45: 00 01-19 07:09 :00 No .5mg 0.5 mg, Inhalation , ONCE, 1 dose, On Tue01/19/23 at 0145, MICHAEL [facility] ipratropium 0.02 % nebulizer solution 01-19 00:00: 00 Yes [id number] .5mg Inhale 2.5 mL every 6 (six) hours as needed for Wheezing, Shortness of Breath, Bronchospa sm or Chest tightness. [facility] guaiFENesin 100 mg/5 mL solution 01-19 00:00: 00 Yes [id number] 200mg Take 10 mL by mouth every 6 (six) hours as needed for Cough. [facility] ipratropium 0.02 % nebulizer solution 01-19 00:00: 00 Yes [id number] .5mg Inhale 2.5 mL every 6 (six) hours as needed for Wheezing, Shortness of Breath, Bronchospa sm or Chest tightness. [facility] guaiFENesin 100 mg/5 mL solution 01-19 00:00: 00 Yes [id number] 200mg Take 10 mL by mouth every 6 (six) hours as needed for Cough. [facility] ipratropium 0.02 % nebulizer solution 01-19 00:00: 00 Yes [id number] .5mg Inhale 2.5 mL every 6 (six) hours as needed for Wheezing, Shortness of Breath, Bronchospa sm or Chest tightness. [facility] guaiFENesin 100 mg/5 mL solution 01-19 00:00: 00 Yes [id number] 200mg Take 10 mL by mouth every 6 (six) hours as needed for Cough. [facility] ipratropium 0.02 % nebulizer solution 01-19 00:00: 00 Yes [id number] .5mg Inhale 2.5 mL every 6 (six) hours as needed for Wheezing, Shortness of Breath, Bronchospa sm or Chest tightness. [facility] guaiFENesin 100 mg/5 mL solution 01-19 00:00: 00 Yes [id number] 200mg Take 10 mL by mouth every 6 (six) hours as needed for Cough. [facility] ipratropium 0.02 % nebulizer solution 01-19 00:00: 00 Yes [id number] .5mg Inhale 2.5 mL every 6 (six) hours as needed for Wheezing, Shortness of Breath, Bronchospa sm or Chest tightness. [facility] guaiFENesin 100 mg/5 mL solution 01-19 00:00: 00 Yes [id number] 200mg Take 10 mL by mouth every 6 (six) hours as needed for Cough. [facility] ipratropium 0.02 % nebulizer solution 01-19 00:00: 00 Yes [id number] .5mg Inhale 2.5 mL every 6 (six) hours as needed for Wheezing, Shortness of Breath, Bronchospa sm or Chest tightness. [facility] guaiFENesin 100 mg/5 mL solution 01-19 00:00: 00 Yes [id number] 200mg Take 10 mL by mouth every 6 (six) hours as needed for Cough. [facility] ipratropium 0.02 % nebulizer solution 01-19 00:00: 00 Yes [id number] .5mg Inhale 2.5 mL every 6 (six) hours as needed for Wheezing, Shortness of Breath, Bronchospa sm or Chest tightness. [facility] guaiFENesin 100 mg/5 mL solution 01-19 00:00: 00 Yes [id number] 200mg Take 10 mL by mouth every 6 (six) hours as needed for Cough. [facility] ipratropium 0.02 % nebulizer solution 01-19 00:00: 00 Yes [id number] .5mg Inhale 2.5 mL every 6 (six) hours as needed for Wheezing, Shortness of Breath, Bronchospa sm or Chest tightness. [facility] guaiFENesin 100 mg/5 mL solution 01-19 00:00: 00 Yes [id number] 200mg Take 10 mL by mouth every 6 (six) hours as needed for Cough. [facility] guaiFENesin 100 mg/5 mL solution 0 01-19 00:00: 00 Yes [id number] 200mg Take 10 mL by mouth every 6 (six) hours as needed for Cough. [facility] guaiFENesin 100 mg/5 mL solution 2023-0 5-03 00:00: 00 Yes [id number] 200mg Take 10 mL by mouth every 6 (six) hours as needed for Cough. [facility] guaiFENesin 100 mg/5 mL solution 2023-0 5-03 00:00: 00 Yes [id number] 200mg Take 10 mL by mouth every 6 (six) hours as needed for Cough. [facility] guaiFENesin 100 mg/5 mL solution 2023-0 5-03 00:00: 00 Yes [id number] 200mg Take 10 mL by mouth every 6 (six) hours as needed for Cough. [facility] guaiFENesin 100 mg/5 mL solution 3-0 5-03 00:00: 00 Yes [id number] 200mg Take 10 mL by mouth every 6 (six) hours as needed for Cough. [facility] guaiFENesin 100 mg/5 mL solution 3-0 5-03 00:00: 00 Yes [id number] 200mg Take 10 mL by mouth every 6 (six) hours as needed for Cough. [facility] guaiFENesin 100 mg/5 mL solution 3-0 5-03 00:00: 00 Yes [id number] 200mg Take 10 mL by mouth every 6 (six) hours as needed for Cough. [facility] guaiFENesin 100 mg/5 mL solution 3-0 5-03 00:00: 00 Yes [id number] 200mg Take 10 mL by mouth every 6 (six) hours as needed for Cough. [facility] guaiFENesin 100 mg/5 mL solution 3-0 5-03 00:00: 00 Yes [id number] 200mg Take 10 mL by mouth every 6 (six) hours as needed for Cough. [facility] guaiFENesin 100 mg/5 mL solution 3-0 5-03 00:00: 00 Yes [id number] 200mg Take 10 mL by mouth every 6 (six) hours as needed for Cough. [facility] guaiFENesin 100 mg/5 mL solution 2023-0 5-03 00:00: 00 Yes [id number] 200mg Take 10 mL by mouth every 6 (six) hours as needed for Cough. [facility] guaiFENesin 100 mg/5 mL solution 01-19 00:00: 00 Yes [id number] 200mg Take 10 mL by mouth every 6 (six) hours as needed for Cough. [facility] guaiFENesin 100 mg/5 mL solution 01-19 00:00: 00 Yes [id number] 200mg Take 10 mL by mouth every 6 (six) hours as needed for Cough. [facility] ipratropium 0.02 % nebulizer solution 01-19 00:00: 00 Yes [id number] .5mg Inhale 2.5 mL every 6 (six) hours as needed for Wheezing, Shortness of Breath, Bronchospa sm or Chest tightness. [facility] guaiFENesin 100 mg/5 mL solution 01-19 00:00: 00 Yes [id number] 200mg Take 10 mL by mouth every 6 (six) hours as needed for Cough. [facility] ipratropium 0.02 % nebulizer solution 01-19 00:00: 00 Yes [id number] .5mg Inhale 2.5 mL every 6 (six) hours as needed for Wheezing, Shortness of Breath, Bronchospa sm or Chest tightness. [facility] guaiFENesin 100 mg/5 mL solution 01-19 00:00: 00 Yes [id number] 200mg Take 10 mL by mouth every 6 (six) hours as needed for Cough. [facility] ipratropium 0.02 % nebulizer solution 01-19 00:00: 00 Yes [id number] .5mg Inhale 2.5 mL every 6 (six) hours as needed for Wheezing, Shortness of Breath, Bronchospa sm or Chest tightness. [facility] guaiFENesin 100 mg/5 mL solution 01-19 00:00: 00 Yes [id number] 200mg Take 10 mL by mouth every 6 (six) hours as needed for Cough. [facility] ipratropium 0.02 % nebulizer solution 01-19 00:00: 00 Yes [id number] .5mg Inhale 2.5 mL every 6 (six) hours as needed for Wheezing, Shortness of Breath, Bronchospa sm or Chest tightness. [facility] guaiFENesin 100 mg/5 mL solution 01-19 00:00: 00 Yes [id number] 200mg Take 10 mL by mouth every 6 (six) hours as needed for Cough. [facility] ipratropium 0.02 % nebulizer solution 01-19 00:00: 00 Yes [id number] .5mg Inhale 2.5 mL every 6 (six) hours as needed for Wheezing, Shortness of Breath, Bronchospa sm or Chest tightness. [facility] guaiFENesin 100 mg/5 mL solution 01-19 00:00: 00 Yes [id number] 200mg Take 10 mL by mouth every 6 (six) hours as needed for Cough. [facility] ipratropium 0.02 % nebulizer solution 01-19 00:00: 00 Yes [id number] .5mg Inhale 2.5 mL every 6 (six) hours as needed for Wheezing, Shortness of Breath, Bronchospa sm or Chest tightness. [facility] guaiFENesin 100 mg/5 mL solution 01-19 00:00: 00 Yes [id number] 200mg Take 10 mL by mouth every 6 (six) hours as needed for Cough. [facility] ipratropium 0.02 % nebulizer solution 01-19 00:00: 00 Yes [id number] .5mg Inhale 2.5 mL every 6 (six) hours as needed for Wheezing, Shortness of Breath, Bronchospa sm or Chest tightness. [facility] guaiFENesin 100 mg/5 mL solution 01-19 00:00: 00 Yes [id number] 200mg Take 10 mL by mouth every 6 (six) hours as needed for Cough. [facility] ipratropium 0.02 % nebulizer solution 01-19 00:00: 00 Yes [id number] .5mg Inhale 2.5 mL every 6 (six) hours as needed for Wheezing, Shortness of Breath, Bronchospa sm or Chest tightness. [facility] guaiFENesin 100 mg/5 mL solution 01-19 00:00: 00 Yes [id number] 200mg Take 10 mL by mouth every 6 (six) hours as needed for Cough. [facility] ipratropium 0.02 % nebulizer solution 01-19 00:00: 00 Yes [id number] .5mg Inhale 2.5 mL every 6 (six) hours as needed for Wheezing, Shortness of Breath, Bronchospa sm or Chest tightness. [facility] guaiFENesin 100 mg/5 mL solution 01-19 00:00: 00 Yes [id number] 200mg Take 10 mL by mouth every 6 (six) hours as needed for Cough. [facility] ipratropium 0.02 % nebulizer solution 01-19 00:00: 00 Yes [id number] .5mg Inhale 2.5 mL every 6 (six) hours as needed for Wheezing, Shortness of Breath, Bronchospa sm or Chest tightness. [facility] guaiFENesin 100 mg/5 mL solution 01-19 00:00: 00 Yes [id number] 200mg Take 10 mL by mouth every 6 (six) hours as needed for Cough. [facility] ipratropium 0.02 % nebulizer solution 01-19 00:00: 00 Yes [id number] .5mg Inhale 2.5 mL every 6 (six) hours as needed for Wheezing, Shortness of Breath, Bronchospa sm or Chest tightness. [facility] guaiFENesin 100 mg/5 mL solution 01-19 00:00: 00 Yes [id number] 200mg Take 10 mL by mouth every 6 (six) hours as needed for Cough. [facility] ipratropium 0.02 % nebulizer solution 01-19 00:00: 00 02-17 00:00 :00 No [id number] .5mg Inhale 2.5 mL every 6 (six) hours as needed for Wheezing, Shortness of Breath, Bronchospa sm or Chest tightness. [facility] levoFLOXaci n 500 mg tablet 01-19 00:00: 00 01-24 04:59 :00 No [id number] 500mg Take 1 tablet by mouth in the morning for 4 days. [facility] levoFLOXaci n 500 mg tablet 01-19 00:00: 00 01-24 04:59 :00 No [id number] 500mg Take 1 tablet by mouth in the morning for 4 days. [facility] levoFLOXaci n 500 mg tablet 01-19 00:00: 00 01-24 04:59 :00 No [id number] 500mg Take 1 tablet by mouth in the morning for 4 days. [facility] levoFLOXaci n 500 mg tablet 01-19 00:00: 00 01-24 04:59 :00 No [id number] 500mg Take 1 tablet by mouth in the morning for 4 days. [facility] levoFLOXaci n 500 mg tablet 01-19 00:00: 00 01-24 04:59 :00 No [id number] 500mg Take 1 tablet by mouth in the morning for 4 days. [facility] levoFLOXaci n 500 mg tablet 01-19 00:00: 00 01-24 04:59 :00 No [id number] 500mg Take 1 tablet by mouth in the morning for 4 days. [facility] levalbutero l (XOPENEX) nebulizer solution 1.25 mg 01-17 13:00: 00 01-17 11:56 :39 No 1.25mg 1.25 mg, Inhalation , TID, First dose on Tue01/17/23 at 0800, Until Discontinu ed, Routine [facility] methylpredn isolone sod succ (SOLU-MEDRO L) injection 125 mg 01-17 12:00: 00 01-17 11:11 :00 No 125mg 125 mg, Intravenou s, ONCE, 1 dose, On Tue01/17/23 at 0700, 2 mL [facility] ipratropium (ATROVENT) 0.02 % nebulizer solution 0.5 mg 01-17 11:45: 00 01-17 11:42 :00 No .5mg 0.5 mg, Inhalation , ONCE, 1 dose, On Tue01/17/23 at 0645, MICHAEL [facility] albuterol 90 mcg/actuati on inhaler 01-17 00:00: 00 Yes [id number] 2{puff} Inhale 2 Puffs every 4 (four) hours as needed for Wheezing or Shortness of Breath. [facility] albuterol 2.5 mg /3 mL (0.083 %) nebulizer solution 01-17 00:00: 00 Yes [id number] 2.5mg Inhale 3 mL every 4 (four) hours. May also nebulize one extra every 6 hours. [facility] predniSONE 50 mg tablet 01-17 00:00: 00 Yes [id number] 50mg Take 1 tablet by mouth in the morning. [facility] benzonatate 200 mg capsule 01-17 00:00: 00 Yes [id number] 200mg Take 1 capsule by mouth 3 (three) times daily as needed for Cough. [facility] ipratropium 0.02 % nebulizer solution 01-17 00:00: 00 Yes [id number] .5mg Inhale 2.5 mL every 6 (six) hours as needed for Wheezing, Shortness of Breath, Bronchospa sm or Chest tightness. [facility] albuterol 90 mcg/actuati on inhaler 01-17 00:00: 00 Yes [id number] 2{puff} Inhale 2 Puffs every 4 (four) hours as needed for Wheezing or Shortness of Breath. [facility] albuterol 2.5 mg /3 mL (0.083 %) nebulizer solution 01-17 00:00: 00 Yes [id number] 2.5mg Inhale 3 mL every 4 (four) hours. May also nebulize one extra every 6 hours. [facility] ben[facility] 200 mg capsule 01-17 00:00: 00 Yes [id number] 200mg Take 1 capsule by mouth 3 (three) times daily as needed for Cough. [facility] albuterol 90 mcg/actuati on inhaler 01-17 00:00: 00 Yes [id number] 2{puff} Inhale 2 Puffs every 4 (four) hours as needed for Wheezing or Shortness of Breath. [facility] albuterol 2.5 mg /3 mL (0.083 %) nebulizer solution 01-17 00:00: 00 Yes [id number] 2.5mg Inhale 3 mL every 4 (four) hours. May also nebulize one extra every 6 hours. [facility] mg capsule 01-17 00:00: 00 Yes [id number] 200mg Take 1 capsule by mouth 3 (three) times daily as needed for Cough. [facility] albuterol 90 mcg/actuati on inhaler 01-17 00:00: 00 Yes [id number] 2{puff} Inhale 2 Puffs every 4 (four) hours as needed for Wheezing or Shortness of Breath. [facility] albuterol 2.5 mg /3 mL (0.083 %) nebulizer solution 01-17 00:00: 00 Yes [id number] 2.5mg Inhale 3 mL every 4 (four) hours. May also nebulize one extra every 6 hours. [facility] benzonatate 200 mg capsule 01-17 00:00: 00 Yes [id number] 200mg Take 1 capsule by mouth 3 (three) times daily as needed for Cough. [facility] albuterol 90 mcg/actuati on inhaler 01-17 00:00: 00 Yes [id number] 2{puff} Inhale 2 Puffs every 4 (four) hours as needed for Wheezing or Shortness of Breath. [facility] albuterol 2.5 mg /3 mL (0.083 %) nebulizer solution 01-17 00:00: 00 Yes [id number] 2.5mg Inhale 3 mL every 4 (four) hours. May also nebulize one extra every 6 hours. [facility] benzonatate 200 mg capsule 01-17 00:00: 00 Yes [id number] 200mg Take 1 capsule by mouth 3 (three) times daily as needed for Cough. [facility] albuterol 90 mcg/actuati on inhaler 01-17 00:00: 00 Yes [id number] 2{puff} Inhale 2 Puffs every 4 (four) hours as needed for Wheezing or Shortness of Breath. [facility] albuterol 2.5 mg /3 mL (0.083 %) nebulizer solution 01-17 00:00: 00 Yes [id number] 2.5mg Inhale 3 mL every 4 (four) hours. May also nebulize one extra every 6 hours. [facility] benzonatate 200 mg capsule 01-17 00:00: 00 Yes [id number] 200mg Take 1 capsule by mouth 3 (three) times daily as needed for Cough. [facility] albuterol 90 mcg/actuati on inhaler 01-17 00:00: 00 Yes [id number] 2{puff} Inhale 2 Puffs every 4 (four) hours as needed for Wheezing or Shortness of Breath. [facility] albuterol 2.5 mg /3 mL (0.083 %) nebulizer solution 01-17 00:00: 00 Yes [id number] 2.5mg Inhale 3 mL every 4 (four) hours. May also nebulize one extra every 6 hours. [facility] benzonatate 200 mg capsule 01-17 00:00: 00 Yes [id number] 200mg Take 1 capsule by mouth 3 (three) times daily as needed for Cough. [facility] albuterol 90 mcg/actuati on inhaler 01-17 00:00: 00 Yes [id number] 2{puff} Inhale 2 Puffs every 4 (four) hours as needed for Wheezing or Shortness of Breath. [facility] albuterol 2.5 mg /3 mL (0.083 %) nebulizer solution 01-17 00:00: 00 Yes [id number] 2.5mg Inhale 3 mL every 4 (four) hours. May also nebulize one extra every 6 hours. [facility] benzon[facility] 200 mg capsule 01-17 00:00: 00 Yes [id number] 200mg Take 1 capsule by mouth 3 (three) times daily as needed for Cough. [facility] albuterol 90 mcg/actuati on inhaler 01-17 00:00: 00 Yes [id number] 2{puff} Inhale 2 Puffs every 4 (four) hours as needed for Wheezing or Shortness of Breath. [facility] albuterol 2.5 mg /3 mL (0.083 %) nebulizer solution 01-17 00:00: 00 Yes [id number] 2.5mg Inhale 3 mL every 4 (four) hours. May also nebulize one extra every 6 hours. [facility] benzonatate 200 mg capsule 01-17 00:00: 00 Yes [id number] 200mg Take 1 capsule by mouth 3 (three) times daily as needed for Cough. [facility] albuterol 90 mcg/actuati on inhaler 01-17 00:00: 00 Yes [id number] 2{puff} Inhale 2 Puffs every 4 (four) hours as needed for Wheezing or Shortness of Breath. [facility] albuterol 2.5 mg /3 mL (0.083 %) nebulizer solution 01-17 00:00: 00 Yes [id number] 2.5mg Inhale 3 mL every 4 (four) hours. May also nebulize one extra every 6 hours. [facility] benzon[facility] 200 mg capsule 01-17 00:00: 00 Yes [id number] 200mg Take 1 capsule by mouth 3 (three) times daily as needed for Cough. [facility] albuterol 90 mcg/actuati on inhaler 01-17 00:00: 00 Yes [id number] 2{puff} Inhale 2 Puffs every 4 (four) hours as needed for Wheezing or Shortness of Breath. [facility] albuterol 2.5 mg /3 mL (0.083 %) nebulizer solution 01-17 00:00: 00 Yes [id number] 2.5mg Inhale 3 mL every 4 (four) hours. May also nebulize one extra every 6 hours. [facility] benzonatate 200 mg capsule 01-17 00:00: 00 Yes [id number] 200mg Take 1 capsule by mouth 3 (three) times daily as needed for Cough. [facility] albuterol 90 mcg/actuati on inhaler 01-17 00:00: 00 Yes [id number] 2{puff} Inhale 2 Puffs every 4 (four) hours as needed for Wheezing or Shortness of Breath. [facility] albuterol 2.5 mg /3 mL (0.083 %) nebulizer solution 01-17 00:00: 00 Yes [id number] 2.5mg Inhale 3 mL every 4 (four) hours. May also nebulize one extra every 6 hours. [facility] benzonatate 200 mg capsule 01-17 00:00: 00 Yes [id number] 200mg Take 1 capsule by mouth 3 (three) times daily as needed for Cough. [facility] albuterol 90 mcg/actuati on inhaler 01-17 00:00: 00 Yes [id number] 2{puff} Inhale 2 Puffs every 4 (four) hours as needed for Wheezing or Shortness of Breath. [facility] albuterol 2.5 mg /3 mL (0.083 %) nebulizer solution 01-17 00:00: 00 Yes [id number] 2.5mg Inhale 3 mL every 4 (four) hours. May also nebulize one extra every 6 hours. [facility] benzonatate 200 mg capsule 01-17 00:00: 00 Yes [id number] 200mg Take 1 capsule by mouth 3 (three) times daily as needed for Cough. [facility] albuterol 90 mcg/actuati on inhaler 01-17 00:00: 00 Yes [id number] 2{puff} Inhale 2 Puffs every 4 (four) hours as needed for Wheezing or Shortness of Breath. [facility] albuterol 2.5 mg /3 mL (0.083 %) nebulizer solution 01-17 00:00: 00 Yes [id number] 2.5mg Inhale 3 mL every 4 (four) hours. May also nebulize one extra every 6 hours. [facility] benzon[facility]ate 200 mg capsule 01-17 00:00: 00 Yes [id number] 200mg Take 1 capsule by mouth 3 (three) times daily as needed for Cough. [facility] albuterol 90 mcg/actuati on inhaler 01-17 00:00: 00 Yes [id number] 2{puff} Inhale 2 Puffs every 4 (four) hours as needed for Wheezing or Shortness of Breath. [facility] albuterol 2.5 mg /3 mL (0.083 %) nebulizer solution 01-17 00:00: 00 Yes [id number] 2.5mg Inhale 3 mL every 4 (four) hours. May also nebulize one extra every 6 hours. [facility] benzonatate 200 mg capsule 01-17 00:00: 00 Yes [id number] 200mg Take 1 capsule by mouth 3 (three) times daily as needed for Cough. [facility] albuterol 90 mcg/actuati on inhaler 01-17 00:00: 00 Yes [id number] 2{puff} Inhale 2 Puffs every 4 (four) hours as needed for Wheezing or Shortness of Breath. [facility] albuterol 2.5 mg /3 mL (0.083 %) nebulizer solution 01-17 00:00: 00 Yes [id number] 2.5mg Inhale 3 mL every 4 (four) hours. May also nebulize one extra every 6 hours. [facility] benzonatate 200 mg capsule 01-17 00:00: 00 Yes [id number] 200mg Take 1 capsule by mouth 3 (three) times daily as needed for Cough. [facility] albuterol 90 mcg/actuati on inhaler 01-17 00:00: 00 Yes [id number] 2{puff} Inhale 2 Puffs every 4 (four) hours as needed for Wheezing or Shortness of Breath. [facility] albuterol 2.5 mg /3 mL (0.083 %) nebulizer solution 01-17 00:00: 00 Yes [id number] 2.5mg Inhale 3 mL every 4 (four) hours. May also nebulize one extra every 6 hours. [facility] benzon[facility]ate 200 mg capsule 01-17 00:00: 00 Yes [id number] 200mg Take 1 capsule by mouth 3 (three) times daily as needed for Cough. [facility] albuterol 2.5 mg /3 mL (0.083 %) nebulizer solution 01-17 00:00: 00 Yes [id number] 2.5mg Inhale 3 mL every 4 (four) hours. May also nebulize one extra every 6 hours. [facility] benzonatate 200 mg capsule 01-17 00:00: 00 Yes [id number] 200mg Take 1 capsule by mouth 3 (three) times daily as needed for Cough. [facility] albuterol 2.5 mg /3 mL (0.083 %) nebulizer solution 01-17 00:00: 00 Yes [id number] 2.5mg Inhale 3 mL every 4 (four) hours. May also nebulize one extra every 6 hours. [facility] benzon[facility]ate 200 mg capsule 01-17 00:00: 00 Yes [id number] 200mg Take 1 capsule by mouth 3 (three) times daily as needed for Cough. [facility] albuterol 2.5 mg /3 mL (0.083 %) nebulizer solution 01-17 00:00: 00 Yes [id number] 2.5mg Inhale 3 mL every 4 (four) hours. May also nebulize one extra every 6 hours. [facility] benzonatate 200 mg capsule 01-17 00:00: 00 Yes [id number] 200mg Take 1 capsule by mouth 3 (three) times daily as needed for Cough. [facility] albuterol 2.5 mg /3 mL (0.083 %) nebulizer solution 01-17 00:00: 00 Yes [id number] 2.5mg Inhale 3 mL every 4 (four) hours. May also nebulize one extra every 6 hours. [facility] albuterol 2.5 mg /3 mL (0.083 %) nebulizer solution 01-17 00:00: 00 Yes [id number] 2.5mg Inhale 3 mL every 4 (four) hours. May also nebulize one extra every 6 hours. [facility] albuterol 2.5 mg /3 mL (0.083 %) nebulizer solution 01-17 00:00: 00 Yes [id number] 2.5mg Inhale 3 mL every 4 (four) hours. May also nebulize one extra every 6 hours. [facility] albuterol 2.5 mg /3 mL (0.083 %) nebulizer solution 01-17 00:00: 00 Yes [id number] 2.5mg Inhale 3 mL every 4 (four) hours. May also nebulize one extra every 6 hours. [facility] albuterol 2.5 mg /3 mL (0.083 %) nebulizer solution 01-17 00:00: 00 Yes [id number] 2.5mg Inhale 3 mL every 4 (four) hours. May also nebulize one extra every 6 hours. [facility] albuterol 2.5 mg /3 mL (0.083 %) nebulizer solution 01-17 00:00: 00 Yes [id number] 2.5mg Inhale 3 mL every 4 (four) hours. May also nebulize one extra every 6 hours. [facility] albuterol 2.5 mg /3 mL (0.083 %) nebulizer solution 01-17 00:00: 00 03-03 00:00 :00 No [id number] 2.5mg Inhale 3 mL every 4 (four) hours. May also nebulize one extra every 6 hours. [facility] benzonatate 200 mg capsule 01-17 00:00: 00 02-17 00:00 :00 No [id number] 200mg Take 1 capsule by mouth 3 (three) times daily as needed for Cough. [facility] albuterol 90 mcg/actuati on inhaler 01-17 00:00: 00 02-04 00:00 :00 No [id number] 2{puff} Inhale 2 Puffs every 4 (four) hours as needed for Wheezing or Shortness of Breath. [facility] predniSONE 50 mg tablet 01-17 00:00: 00 01-19 00:00 :00 No [id number] 50mg Take 1 tablet by mouth in the morning. [facility] ipratropium 0.02 % nebulizer solution 01-17 00:00: 00 01-19 00:00 :00 No [id number] .5mg Inhale 2.5 mL every 6 (six) hours as needed for Wheezing, Shortness of Breath, Bronchospa sm or Chest tightness. [facility] potassium chloride (KCL-20 ORAL) 01-07 14:37: 58 Yes 1{tbl} Take 1 tablet by mouth in the morning and 1 tablet in the evening. [facility] potassium chloride (KCL-20 ORAL) 01-07 14:37: 58 Yes 1{tbl} Take 1 tablet by mouth in the morning and 1 tablet in the evening. [facility] potassium chloride (KCL-20 ORAL) 01-07 14:37: 58 Yes 1{tbl} Take 1 tablet by mouth in the morning and 1 tablet in the evening. [facility] potassium chloride (KCL-20 ORAL) 01-07 14:37: 58 Yes 1{tbl} Take 1 tablet by mouth in the morning and 1 tablet in the evening. [facility] busPIRone 10 mg tablet 3-0 01-07 14:36: 57 Yes 10mg Take 1 tablet by mouth in the morning and 1 tablet in the evening. [facility] rivaroxaban 15 mg tablet 2022-0 01-07 14:36: 57 Yes 15mg Take 1 tablet by mouth in the morning. [facility] ASPIRIN ORAL 3-0 01-07 14:36: 57 Yes 81mg Take 81 mg by mouth in the morning. tablet [facility] benazepriL 10 mg tablet 2022-0 01-07 14:36: 57 Yes 10mg Take 1 tablet by mouth in the morning. [facility] busPIRone 10 mg tablet 2022-0 01-07 14:36: 57 Yes 10mg Take 1 tablet by mouth in the morning and 1 tablet in the evening. [facility] rivaroxaban 15 mg tablet 2022-0 01-07 14:36: 57 Yes 15mg Take 1 tablet by mouth in the morning. [facility] ASPIRIN ORAL 2022-0 01-07 14:36: 57 Yes 81mg Take 81 mg by mouth in the morning. tablet [facility] benazepriL 10 mg tablet 2022-0 01-07 14:36: 57 Yes 10mg Take 1 tablet by mouth in the morning. [facility] busPIRone 10 mg tablet 2022-0 01-07 14:36: 57 Yes 10mg Take 1 tablet by mouth in the morning and 1 tablet in the evening. [facility] rivaroxaban 15 mg tablet 2022-0 01-07 14:36: 57 Yes 15mg Take 1 tablet by mouth in the morning. [facility] ASPIRIN ORAL 3-0 01-07 14:36: 57 Yes 81mg Take 81 mg by mouth in the morning. tablet [facility] benazepriL 10 mg tablet 3-0 01-07 14:36: 57 Yes 10mg Take 1 tablet by mouth in the morning. [facility] busPIRone 10 mg tablet 3-0 4-21 14:36: 57 Yes 10mg Take 1 tablet by mouth in the morning and 1 tablet in the evening. [facility] rivaroxaban 15 mg tablet 2022-0 01-07 14:36: 57 Yes 15mg Take 1 tablet by mouth in the morning. [facility] ASPIRIN ORAL 3-0 01-07 14:36: 57 Yes 81mg Take 81 mg by mouth in the morning. tablet [facility] benazepriL 10 mg tablet 2022-0 01-07 14:36: 57 Yes 10mg Take 1 tablet by mouth in the morning. [facility] donepeziL 5 mg tablet 2022-0 01-07 00:00: 00 Yes 5mg Take 1 tablet by mouth in the morning. [facility] memantine 5 mg tablet 2022-0 01-07 00:00: 00 Yes 5mg Take 1 tablet by mouth in the morning. [facility] donepeziL 5 mg tablet 3-0 21 00:00: 00 Yes 5mg Take 1 tablet by mouth in the morning. [facility] memantine 5 mg tablet 3-0 21 00:00: 00 Yes 5mg Take 1 tablet by mouth in the morning. [facility] donepeziL 5 mg tablet 3-0 21 00:00: 00 Yes 5mg Take 1 tablet by mouth in the morning. [facility] memantine 5 mg tablet 3-0 21 00:00: 00 Yes 5mg Take 1 tablet by mouth in the morning. [facility] donepeziL 5 mg tablet 3-0 21 00:00: 00 Yes 5mg Take 1 tablet by mouth in the morning. [facility] memantine 5 mg tablet 3-0 21 00:00: 00 Yes 5mg Take 1 tablet by mouth in the morning. [facility] donepeziL 5 mg tablet 3-0 21 00:00: 00 Yes 5mg Take 1 tablet by mouth in the morning. [facility] memantine 5 mg tablet 3-0 4-21 00:00: 00 Yes 5mg Take 1 tablet by mouth in the morning. [facility] donepeziL 5 mg tablet 2023-0 4-21 00:00: 00 Yes 5mg Take 1 tablet by mouth in the morning. [facility] memantine 5 mg tablet 2023-0 4-21 00:00: 00 Yes 5mg Take 1 tablet by mouth in the morning. [facility] donepeziL 5 mg tablet 2023-0 4-21 00:00: 00 Yes 5mg Take 1 tablet by mouth in the morning. [facility] memantine 5 mg tablet 2023-0 4-21 00:00: 00 Yes 5mg Take 1 tablet by mouth in the morning. [facility] donepeziL 5 mg tablet 3-0 4-21 00:00: 00 Yes 5mg Take 1 tablet by mouth in the morning. [facility] memantine 5 mg tablet 2023-0 4-21 00:00: 00 Yes 5mg Take 1 tablet by mouth in the morning. [facility] donepeziL 5 mg tablet 2023-0 4-21 00:00: 00 Yes 5mg Take 1 tablet by mouth in the morning. [facility] memantine 5 mg tablet 2023-0 4-21 00:00: 00 Yes 5mg Take 1 tablet by mouth in the morning. [facility] donepeziL 5 mg tablet 2023-0 4-21 00:00: 00 Yes 5mg Take 1 tablet by mouth in the morning. [facility] memantine 5 mg tablet 2023-0 4-21 00:00: 00 Yes 5mg Take 1 tablet by mouth in the morning. [facility] donepeziL 5 mg tablet 2023-0 4-21 00:00: 00 Yes 5mg Take 1 tablet by mouth in the morning. [facility] memantine 5 mg tablet 2023-0 4-21 00:00: 00 Yes 5mg Take 1 tablet by mouth in the morning. [facility] donepeziL 5 mg tablet 2023-0 4-21 00:00: 00 Yes 5mg Take 1 tablet by mouth in the morning. [facility] memantine 5 mg tablet 2023-0 4-21 00:00: 00 Yes 5mg Take 1 tablet by mouth in the morning. [facility] donepeziL 5 mg tablet 2023-0 4-21 00:00: 00 Yes 5mg Take 1 tablet by mouth in the morning. [facility] memantine 5 mg tablet 2023-0 4-21 00:00: 00 Yes 5mg Take 1 tablet by mouth in the morning. [facility] donepeziL 5 mg tablet 2023-0 4-21 00:00: 00 Yes 5mg Take 1 tablet by mouth in the morning. [facility] memantine 5 mg tablet 3-0 4-21 00:00: 00 Yes 5mg Take 1 tablet by mouth in the morning. [facility] donepeziL 5 mg tablet 3-0 4-21 00:00: 00 Yes 5mg Take 1 tablet by mouth in the morning. [facility] memantine 5 mg tablet 2023-0 4-21 00:00: 00 Yes 5mg Take 1 tablet by mouth in the morning. [facility] donepeziL 5 mg tablet 2023-0 4-21 00:00: 00 Yes 5mg Take 1 tablet by mouth in the morning. [facility] memantine 5 mg tablet 3-0 4-21 00:00: 00 Yes 5mg Take 1 tablet by mouth in the morning. [facility] donepeziL 5 mg tablet 3-0 4-21 00:00: 00 Yes 5mg Take 1 tablet by mouth in the morning. [facility] memantine 5 mg tablet 2023-0 4-21 00:00: 00 Yes 5mg Take 1 tablet by mouth in the morning. [facility] donepeziL 5 mg tablet 2023-0 4-21 00:00: 00 Yes 5mg Take 1 tablet by mouth in the morning. [facility] memantine 5 mg tablet 2023-0 4-21 00:00: 00 Yes 5mg Take 1 tablet by mouth in the morning. [facility] donepeziL 5 mg tablet 2023-0 4-21 00:00: 00 Yes 5mg Take 1 tablet by mouth in the morning. [facility] memantine 5 mg tablet 2023-0 4-21 00:00: 00 Yes 5mg Take 1 tablet by mouth in the morning. [facility] donepeziL 5 mg tablet 2023-0 4-21 00:00: 00 Yes 5mg Take 1 tablet by mouth in the morning. [facility] memantine 5 mg tablet 2023-0 4-21 00:00: 00 Yes 5mg Take 1 tablet by mouth in the morning. [facility] donepeziL 5 mg tablet 2023-0 4-21 00:00: 00 Yes 5mg Take 1 tablet by mouth in the morning. [facility] memantine 5 mg tablet 3-0 4-21 00:00: 00 Yes 5mg Take 1 tablet by mouth in the morning. [facility] donepeziL 5 mg tablet 2023-0 4-21 00:00: 00 Yes 5mg Take 1 tablet by mouth in the morning. [facility] memantine 5 mg tablet 2023-0 4-21 00:00: 00 Yes 5mg Take 1 tablet by mouth in the morning. [facility] donepeziL 5 mg tablet 2023-0 4-21 00:00: 00 Yes 5mg Take 1 tablet by mouth in the morning. [facility] memantine 5 mg tablet 3-0 4-21 00:00: 00 Yes 5mg Take 1 tablet by mouth in the morning. [facility] donepeziL 5 mg tablet 2023-0 4-21 00:00: 00 Yes 5mg Take 1 tablet by mouth in the morning. [facility] memantine 5 mg tablet 2023-0 4-21 00:00: 00 Yes 5mg Take 1 tablet by mouth in the morning. [facility] donepeziL 5 mg tablet 2023-0 4-21 00:00: 00 Yes 5mg Take 1 tablet by mouth in the morning. [facility] memantine 5 mg tablet 2023-0 4-21 00:00: 00 Yes 5mg Take 1 tablet by mouth in the morning. [facility] donepeziL 5 mg tablet 2023-0 4-21 00:00: 00 Yes 5mg Take 1 tablet by mouth in the morning. [facility] memantine 5 mg tablet 3-0 4-21 00:00: 00 Yes 5mg Take 1 tablet by mouth in the morning. [facility] donepeziL 5 mg tablet 3-0 4-21 00:00: 00 Yes 5mg Take 1 tablet by mouth in the morning. [facility] memantine 5 mg tablet 3-0 4-21 00:00: 00 Yes 5mg Take 1 tablet by mouth in the morning. [facility] donepeziL 5 mg tablet 3-0 4-21 00:00: 00 03-01 00:00 :00 No 5mg Take 1 tablet by mouth in the morning. [facility] memantine 5 mg tablet 3-0 4-21 00:00: 00 03-01 00:00 :00 No 5mg Take 1 tablet by mouth in the morning. [facility] donepeziL 5 mg tablet 3-0 4-21 00:00: 00 03-01 00:00 :00 No 5mg Take 1 tablet by mouth in the morning. [facility] memantine 5 mg tablet 2022-0 4-21 00:00: 00 03-01 00:00 :00 No 5mg Take 1 tablet by mouth in the morning. [facility] tamsulosin 0.4 mg 24 hr capsule 3-0 3-27 00:00: 00 01-13 04:59 :00 No [id number] .4mg Take 1 capsule by mouth in the morning for 30 days. [facility] tamsulosin 0.4 mg 24 hr capsule 3-0 3-27 00:00: 00 01-13 04:59 :00 No [id number] .4mg Take 1 capsule by mouth in the morning for 30 days. [facility] tamsulosin 0.4 mg 24 hr capsule 3-0 3-27 00:00: 00 01-13 04:59 :00 No [id number] .4mg Take 1 capsule by mouth in the morning for 30 days. [facility] tamsulosin 0.4 mg 24 hr capsule 12-13 00:00: 00 01-13 04:59 :00 No [id number] .4mg Take 1 capsule by mouth in the morning for 30 days. [facility] tamsulosin 0.4 mg 24 hr capsule 12-13 00:00: 00 01-13 04:59 :00 No [id number] .4mg Take 1 capsule by mouth in the morning for 30 days. [facility] tamsulosin 0.4 mg 24 hr capsule 12-13 00:00: 00 01-13 04:59 :00 No [id number] .4mg Take 1 capsule by mouth in the morning for 30 days. [facility] donepeziL (ARICEPT) tablet 5 mg 12-12 17:30: 00 Yes 5mg 5 mg, Oral, DAILY, First dose on 12/12/22 at 1230, Until Discontinu ed, Routine [facility] memantine (NAMENDA) tablet 5 mg 12-12 17:30: 00 Yes 5mg 5 mg, Oral, DAILY, First dose on 12/12/22 at 1230, Until Discontinu ed, Routine
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 [facility] rivaroxaban (XARELTO) 15 mg tablet 12-12 14:37: 13 Yes 15mg Take 1 tablet by mouth in the morning. [facility] aspirin 81 mg chewable tablet 12-12 14:37: 13 Yes 81mg Take 81 mg by mouth in the morning. tablet [facility] busPIRone 10 mg tablet 12-12 14:37: 13 Yes 10mg Take 1 tablet by mouth in the morning and 1 tablet in the evening. [facility] rivaroxaban (XARELTO) 15 mg tablet 12-12 14:37: 13 Yes 15mg Take 1 tablet by mouth in the morning. [facility] busPIRone 10 mg tablet 12-12 14:37: 13 Yes 10mg Take 1 tablet by mouth in the morning and 1 tablet in the evening. [facility] rivaroxaban (XARELTO) 15 mg tablet 12-12 14:37: 13 Yes 15mg Take 1 tablet by mouth in the morning. [facility] aspirin 81 mg chewable tablet 12-12 14:37: 13 Yes 81mg Take 81 mg by mouth in the morning. tablet [facility] busPIRone 10 mg tablet 12-12 14:37: 13 Yes 10mg Take 1 tablet by mouth in the morning and 1 tablet in the evening. [facility] rivaroxaban (XARELTO) 15 mg tablet 12-12 14:37: 13 Yes 15mg Take 1 tablet by mouth in the morning. [facility] aspirin 81 mg chewable tablet 12-12 14:37: 13 Yes 81mg Take 81 mg by mouth in the morning. tablet [facility] tamsulosin (FLOMAX) capsule 0.4 mg 12-12 14:00: 00 Yes .4mg 0.4 mg, Oral, DAILY, First dose on 12/12/22 at 0900, Until Discontinu ed, Routine [facility] aspirin EC tablet 81 mg 12-12 14:00: 00 Yes 81mg 81 mg, Oral, DAILY, First dose on 12/12/22 at 0900, Until Discontinu ed, [facility] isolone sod succ (SOLU-MEDRO L) injection 40 mg 12-12 14:00: 00 Yes 40mg 40 mg, Intravenou s, DAILY, First dose (after last modificati on) on 12/12/22 at 0900, Until Discontinu ed, Routine [facility] carvediloL 25 mg tablet 12-12 11:47: 13 12-12 00:00 :00 No 25mg Take 1 tablet by mouth in the morning and 1 tablet in the evening. Take with meals. [facility] busPIRone 30 mg tablet 12-12 11:47: 13 12-12 00:00 :00 No 30mg Take 1 tablet by mouth in the morning and 1 tablet in the evening. [facility] KCL 20 mEq tablet 12-12 11:47: 13 12-12 00:00 :00 No Take by mouth 2 (two) times daily. [facility] benazepriL 10 mg tablet 12-12 11:47: 13 12-12 00:00 :00 No 10mg Take 1 tablet by mouth in the morning. [facility] hydroCHLORO thiazide 25 mg tablet 12-12 11:47: 13 12-12 00:00 :00 No 25mg Take 1 tablet by mouth in the morning. [facility] melatonin (MELATIN) tablet 6 mg 12-12 02:00: 00 Yes 6mg 6 mg, Oral, QHS, First dose on 12/11/22 at 2100, Until Discontinu ed, Routine [facility] atorvastati n (LIPITOR) tablet 40 mg 12-12 02:00: 00 Yes 40mg 40 mg, Oral, QHS, First dose on 12/11/22 at 2100, Until Discontinu ed, Routine [facility] carvediloL 3.125 mg tablet 12-12 00:00: 00 01-12 04:59 :00 No [id number] 3.125mg Take 1 tablet by mouth in the morning and 1 tablet in the evening. Take with meals. Do all this for 30 days. [facility] atorvastati n 40 mg tablet 12-12 00:00: 00 01-12 04:59 :00 No [id number] 40mg Take 1 tablet by mouth at bedtime for 30 days. [facility] donepeziL 5 mg tablet 12-12 00:00: 00 01-12 04:59 :00 No [id number] 5mg Take 1 tablet by mouth in the morning for 30 days. [facility] memantine 5 mg tablet 2022-0 3- 00:00: 00 01-12 04:59 :00 No [id number] 5mg Take 1 tablet by mouth in the morning for 30 days. [facility] carvediloL 3.125 mg tablet 2022-0 3 00:00: 00 01-12 04:59 :00 No [id number] 3.125mg Take 1 tablet by mouth in the morning and 1 tablet in the evening. Take with meals. Do all this for 30 days. [facility] atorvastati n 40 mg tablet 2022-0 12-12 00:00: 00 01-12 04:59 :00 No [id number] 40mg Take 1 tablet by mouth at bedtime for 30 days. [facility] donepeziL 5 mg tablet 2022-0 12-12 00:00: 00 01-12 04:59 :00 No [id number] 5mg Take 1 tablet by mouth in the morning for 30 days. [facility] memantine 5 mg tablet 2022-0 12-12 00:00: 00 01-12 04:59 :00 No [id number] 5mg Take 1 tablet by mouth in the morning for 30 days. [facility] carvediloL 3.125 mg tablet 2022-0 12-12 00:00: 00 01-12 04:59 :00 No [id number] 3.125mg Take 1 tablet by mouth in the morning and 1 tablet in the evening. Take with meals. Do all this for 30 days. [facility] atorvastati n 40 mg tablet 2022-0 12-12 00:00: 00 01-12 04:59 :00 No [id number] 40mg Take 1 tablet by mouth at bedtime for 30 days. [facility] donepeziL 5 mg tablet 2022-0 3- 00:00: 00 01-12 04:59 :00 No [id number] 5mg Take 1 tablet by mouth in the morning for 30 days. [facility] memantine 5 mg tablet 12-12 00:00: 00 01-12 04:59 :00 No [id number] 5mg Take 1 tablet by mouth in the morning for 30 days. [facility] carvediloL 3.125 mg tablet 12-12 00:00: 00 01-12 04:59 :00 No [id number] 3.125mg Take 1 tablet by mouth in the morning and 1 tablet in the evening. Take with meals. Do all this for 30 days. [facility] atorvastati n 40 mg tablet 12-12 00:00: 00 01-12 04:59 :00 No [id number] 40mg Take 1 tablet by mouth at bedtime for 30 days. [facility] carvediloL 3.125 mg tablet 12-12 00:00: 00 01-12 04:59 :00 No [id number] 3.125mg Take 1 tablet by mouth in the morning and 1 tablet in the evening. Take with meals. Do all this for 30 days. [facility] atorvastati n 40 mg tablet 12-12 00:00: 00 01-12 04:59 :00 No [id number] 40mg Take 1 tablet by mouth at bedtime for 30 days. [facility] carvediloL 3.125 mg tablet 12-12 00:00: 00 01-12 04:59 :00 No [id number] 3.125mg Take 1 tablet by mouth in the morning and 1 tablet in the evening. Take with meals. Do all this for 30 days. [facility] atorvastati n 40 mg tablet 12-12 00:00: 00 01-12 04:59 :00 No [id number] 40mg Take 1 tablet by mouth at bedtime for 30 days. [facility] donepeziL 5 mg tablet 12-12 00:00: 00 01-07 00:00 :00 No [id number] 5mg Take 1 tablet by mouth in the morning for 30 days. [facility] memantine 5 mg tablet 12-12 00:00: 00 01-07 00:00 :00 No [id number] 5mg Take 1 tablet by mouth in the morning for 30 days. [facility] donepeziL 5 mg tablet 12-12 00:00: 00 01-07 00:00 :00 No [id number] 5mg Take 1 tablet by mouth in the morning for 30 days. [facility] memantine 5 mg tablet 12-12 00:00: 00 01-07 00:00 :00 No [id number] 5mg Take 1 tablet by mouth in the morning for 30 days. [facility] levalbutero l (XOPENEX) nebulizer solution 1.25 mg 12-11 17:00: 00 Yes 1.25mg 1.25 mg, Inhalation , QID, First dose (after last modificati on) on 12/11/22 at 1200, Until Discontinu ed, Routine [facility] rivaroxaban (XARELTO) tablet 15 mg 12-11 14:00: 00 Yes 15mg 15 mg, Oral, DAILY, First dose on 12/11/22 at 0900, Until Discontinu ed, Routine [facility] nicotine (NICODERM) 21 mg/24 hr patch 1 Patch 12-11 13:45: 00 Yes 1{patch } 1 Patch, Topical, Administer over 24 Hours, Q24H, First dose on 12/11/22 at 0845, Until Discontinu ed, Routine [facility] ipratropium (ATROVENT) 0.02 % nebulizer solution 0.5 mg 12-11 13:00: 00 Yes .5mg 0.5 mg, Inhalation , QID, First dose on 12/11/22 at 0800, Until Discontinu ed [facility] carvediloL (COREG) tablet 3.125 mg 12-11 13:00: 00 Yes 3.125mg 3.125 mg, Oral, BID MEALS, First dose on 12/11/22 at 0800, Until Discontinu ed, Routine [facility] busPIRone (BUSPAR) tablet 10 mg 12-11 13:00: 00 Yes 10mg 10 mg, Oral, BID, First dose on Tue12/11/22 at 0800, Until Discontinu ed, Routine [facility] methylpredn isolone sod succ (SOLU-MEDRO L) injection 125 mg 12-11 05:00: 00 12-11 12:35 :32 No 125mg 125 mg, Intravenou s, Q6H, First dose on Tue12/11/22 at 0000, Until Discontinu ed, Routine [facility] NaCl 0.9% (NS) IV infusion 1,000 mL 12-11 03:30: 00 12-11 14:48 :38 No 1000mL at 100 mL/hr, IV Infusion, CONTINUOUS , Starting on Tue12/10/22 at 2230, Until Tue12/11/22 at 0948, Routine [facility] albuterol (VENTOLIN) inhaler 2 Puff 12-11 03:17: 09 Yes 2{puff} 2 Puff, Inhalation , Q4HPRN, Starting on Tue12/10/22 at 2217, Until Discontinu ed, Routine, Wheezing, Shortness of Breath [facility] ondansetron (ZOFRAN (PF)) injection 4 mg 12-11 03:05: 14 Yes 4mg 4 mg, Slow IV Push, Q6HPRN, Starting on Tue12/10/22 at 2205, Until Discontinu ed, Routine, Nausea and Vomiting (N/V) [facility] HYDROcodone -acetaminop hen (NORCO) 10-325 mg tablet 1 tablet 12-11 03:05: 00 Yes 1{tbl} 1 tablet, Oral, Q6HPRN, Starting on Tue12/10/22 at 2205, Until Discontinu ed, Routine, Pain (scale 7-10) [facility] HYDROcodone -acetaminop hen (NORCO 5) 5-325 mg tablet 1 tablet 12-11 03:04: 56 12-13 03:03 :56 No 1{tbl} 1 tablet, Oral, Q6HPRN, Starting on Tue12/10/22 at 2204, Until 12/12/22 at 2203, Routine, Pain (scale 4-6) [facility] acetaminoph en (TYLENOL) tablet 650 mg 12-11 03:04: 50 Yes 650mg 650 mg, Oral, Q6HPRN, Starting on Tue12/10/22 at 2204, Until Discontinu ed, Routine, Pain (scale 1-3) [facility] levalbutero l (XOPENEX) nebulizer solution 1.25 mg 12-11 01:00: 00 12-11 15:57 :00 No 1.25mg 1.25 mg, Inhalation , TID, First dose on Tue12/10/22 at 2000, Until Discontinu ed, Routine [facility] NaCl 0.9% (NS) bolus infusion 1,000 mL 12-11 00:15: 00 12-11 03:18 :00 No 1000mL at 999 mL/hr, 1,000 mL, IV Infusion, ONCE, 1 dose, On Tue12/10/22 at 1915, STAT [facility] ipratropium (ATROVENT) 0.02 % nebulizer solution 0.5 mg 12-10 23:48: 58 Yes .5mg 0.5 mg, Inhalation , Q4HPRN, Starting on Tue12/10/22 at 1848, Until Discontinu ed, Routine, Wheezing, Shortness of Breath [facility] NaCl 0.9% (NS) bolus infusion 500 mL 12-04 16:15: 00 12-04 15:41 :58 No 500mL at 999 mL/hr, 500 mL, IV Piggyback, ONCE, 1 dose, On Tue12/04/22 at 1115, STAT [facility] carvediloL 3.125 mg tablet 12-04 12:44: 03 Yes 3.125mg Take 1 tablet by mouth in the morning and 1 tablet in the evening. Take with meals. [facility] busPIRone 10 mg tablet 12-04 12:44: 03 Yes 10mg Take 1 tablet by mouth in the morning and 1 tablet in the evening. [facility] busPIRone 30 mg tablet 3-0 3-18 12:44: 03 Yes 30mg Take 1 tablet by mouth in the morning and 1 tablet in the evening. [facility] KCL 20 mEq tablet 3-0 3-18 12:44: 03 Yes Take by mouth 2 (two) times daily. [facility] benazepriL 10 mg tablet 3-0 3-18 12:44: 03 Yes 10mg Take 1 tablet by mouth in the morning. [facility] rivaroxaban (XARELTO) 15 mg tablet 3-0 -18 12:44: 03 Yes 15mg Take 1 tablet by mouth in the morning. [facility] carvediloL 3.125 mg tablet 3-0 3-18 12:44: 03 Yes 3.125mg Take 1 tablet by mouth in the morning and 1 tablet in the evening. Take with meals. [facility] busPIRone 10 mg tablet 3-0 -18 12:44: 03 Yes 10mg Take 1 tablet by mouth in the morning and 1 tablet in the evening. [facility] busPIRone 30 mg tablet 3-0 18 12:44: 03 Yes 30mg Take 1 tablet by mouth in the morning and 1 tablet in the evening. [facility] KCL 20 mEq tablet 3-0 18 12:44: 03 Yes Take by mouth 2 (two) times daily. [facility] benazepriL 10 mg tablet 3-0 -18 12:44: 03 Yes 10mg Take 1 tablet by mouth in the morning. [facility] rivaroxaban (XARELTO) 15 mg tablet 3-0 3-18 12:44: 03 Yes 15mg Take 1 tablet by mouth in the morning. [facility] carvediloL 3.125 mg tablet 3-0 3-18 12:44: 03 Yes 3.125mg Take 1 tablet by mouth in the morning and 1 tablet in the evening. Take with meals. [facility] busPIRone 10 mg tablet 2023-0 3-18 12:44: 03 Yes 10mg Take 1 tablet by mouth in the morning and 1 tablet in the evening. [facility] busPIRone 30 mg tablet 12-04 12:44: 03 Yes 30mg Take 1 tablet by mouth in the morning and 1 tablet in the evening. [facility] KCL 20 mEq tablet 12-04 12:44: 03 Yes Take by mouth 2 (two) times daily. [facility] benazepriL 10 mg tablet 12-04 12:44: 03 Yes 10mg Take 1 tablet by mouth in the morning. [facility] rivaroxaban (XARELTO) 15 mg tablet 12-04 12:44: 03 Yes 15mg Take 1 tablet by mouth in the morning. [facility] carvediloL 3.125 mg tablet 12-04 12:44: 03 Yes 3.125mg Take 1 tablet by mouth in the morning and 1 tablet in the evening. Take with meals. [facility] busPIRone 10 mg tablet 12-04 12:44: 03 Yes 10mg Take 1 tablet by mouth in the morning and 1 tablet in the evening. [facility] busPIRone 30 mg tablet 12-04 12:44: 03 Yes 30mg Take 1 tablet by mouth in the morning and 1 tablet in the evening. [facility] KCL 20 mEq tablet 12-04 12:44: 03 Yes Take by mouth 2 (two) times daily. [facility] benazepriL 10 mg tablet 12-04 12:44: 03 Yes 10mg Take 1 tablet by mouth in the morning. [facility] rivaroxaban (XARELTO) 15 mg tablet 12-04 12:44: 03 Yes 15mg Take 1 tablet by mouth in the morning. [facility] albuterol 90 mcg/actuati on inhaler 12-04 00:00: 00 Yes [id number] 2{puff} Inhale 2 Puffs every 6 (six) hours as needed for Wheezing or Shortness of Breath. [facility] albuterol 90 mcg/actuati on inhaler 318 00:00: 00 Yes [id number] 2{puff} Inhale 2 Puffs every 6 (six) hours as needed for Wheezing or Shortness of Breath. [facility] albuterol 90 mcg/actuati on inhaler 3 00:00: 00 Yes [id number] 2{puff} Inhale 2 Puffs every 6 (six) hours as needed for Wheezing or Shortness of Breath. [facility] albuterol 90 mcg/actuati on inhaler 3 00:00: 00 Yes [id number] 2{puff} Inhale 2 Puffs every 6 (six) hours as needed for Wheezing or Shortness of Breath. [facility] albuterol 90 mcg/actuati on inhaler 3 00:00: 00 Yes [id number] 2{puff} Inhale 2 Puffs every 6 (six) hours as needed for Wheezing or Shortness of Breath. [facility] albuterol 90 mcg/actuati on inhaler 3 00:00: 00 Yes [id number] 2{puff} Inhale 2 Puffs every 6 (six) hours as needed for Wheezing or Shortness of Breath. [facility] albuterol 90 mcg/actuati on inhaler 3 00:00: 00 Yes [id number] 2{puff} Inhale 2 Puffs every 6 (six) hours as needed for Wheezing or Shortness of Breath. [facility] albuterol 90 mcg/actuati on inhaler 318 00:00: 00 Yes [id number] 2{puff} Inhale 2 Puffs every 6 (six) hours as needed for Wheezing or Shortness of Breath. [facility] albuterol 90 mcg/actuati on inhaler 318 00:00: 00 Yes [id number] 2{puff} Inhale 2 Puffs every 6 (six) hours as needed for Wheezing or Shortness of Breath. [facility] albuterol 90 mcg/actuati on inhaler 318 00:00: 00 Yes [id number] 2{puff} Inhale 2 Puffs every 6 (six) hours as needed for Wheezing or Shortness of Breath. [facility] albuterol 90 mcg/actuati on inhaler 318 00:00: 00 Yes [id number] 2{puff} Inhale 2 Puffs every 6 (six) hours as needed for Wheezing or Shortness of Breath. [facility] albuterol 90 mcg/actuati on inhaler 18 00:00: 00 Yes [id number] 2{puff} Inhale 2 Puffs every 6 (six) hours as needed for Wheezing or Shortness of Breath. [facility] albuterol 90 mcg/actuati on inhaler 18 00:00: 00 01-19 00:00 :00 No [id number] 2{puff} Inhale 2 Puffs every 6 (six) hours as needed for Wheezing or Shortness of Breath. [facility] tiotropium 18 mcg inhalation 0 318 00:00: 00 01-04 04:59 :00 No [id number] 18ug Inhale 1 capsule in the morning for 30 days. [facility] tiotropium 18 mcg inhalation 2022-0 318 00:00: 00 01-04 04:59 :00 No [id number] 18ug Inhale 1 capsule in the morning for 30 days. [facility] tiotropium 18 mcg inhalation 2022-0 3-18 00:00: 00 01-04 04:59 :00 No [id number] 18ug Inhale 1 capsule in the morning for 30 days. [facility] tiotropium 18 mcg inhalation 2022-0 3-18 00:00: 00 01-04 04:59 :00 No [id number] 18ug Inhale 1 capsule in the morning for 30 days. [facility] tiotropium 18 mcg inhalation 2022-0 3-18 00:00: 00 01-04 04:59 :00 No [id number] 18ug Inhale 1 capsule in the morning for 30 days. [facility] tiotropium 18 mcg inhalation 2022-0 3-18 00:00: 00 01-04 04:59 :00 No [id number] 18ug Inhale 1 capsule in the morning for 30 days. [facility] tiotropium 18 mcg inhalation 2022-0 3-18 00:00: 00 01-04 04:59 :00 No [id number] 18ug Inhale 1 capsule in the morning for 30 days. [facility] tiotropium 18 mcg inhalation 2022-0 3-18 00:00: 00 01-04 04:59 :00 No [id number] 18ug Inhale 1 capsule in the morning for 30 days. [facility] doxycycline hyclate 100 mg capsule 18 00:00: 00 12-10 04:59 :00 No [id number] 100mg Take 1 capsule by mouth every 12 (twelve) hours for 5 days. [facility] predniSONE 20 mg tablet 18 00:00: 00 12-10 04:59 :00 No [id number] 40mg Take 2 tablets by mouth in the morning for 5 days. [facility] doxycycline hyclate 100 mg capsule 18 00:00: 00 12-10 04:59 :00 No [id number] 100mg Take 1 capsule by mouth every 12 (twelve) hours for 5 days. [facility] predniSONE 20 mg tablet 18 00:00: 00 12-10 04:59 :00 No [id number] 40mg Take 2 tablets by mouth in the morning for 5 days. [facility] rivaroxaban (XARELTO) tablet 15 mg 12-03 17:15: 00 Yes 15mg 15 mg, Oral, DAILY, First dose (after last modificati on) on Tue12/03/22 at 1215, Until Discontinu ed, Routine [facility] enoxaparin (LOVENOX) injection 40 mg 16 22:00: 00 12-03 16:06 :59 No 40mg 40 mg, Subcutaneo us, DAILY, First dose on Tue12/02/22 at 1700, Until Discontinu ed, Routine [facility] methylPREDN ISolone sod succ (SOLU-MEDRO L (PF)) injection 40 mg 12-02 19:00: 00 Yes 40mg 40 mg, Intravenou s, Q8H, First dose on Tue12/02/22 at 1400, Until Discontinu ed, 1 mL [facility] codeine-gua ifenesin (ROBITUSSIN AC) 10-100 mg/5 mL oral solution 5 mL 12-02 16:25: 07 Yes 5mL 5 mL, Oral, Q6HPRN, Starting on Tue12/02/22 at 1125, Until Discontinu ed, Routine, Cough [facility] levalbutero l (XOPENEX) nebulizer solution 1.25 mg 12-02 13:00: 00 Yes 1.25mg 1.25 mg, Inhalation , Q4H, First dose on Tue12/02/22 at 0800, Until Discontinu ed, Routine [facility] ipratropium (ATROVENT) 0.02 % nebulizer solution 0.5 mg 12-02 13:00: 00 Yes .5mg 0.5 mg, Inhalation , Q4H, First dose on Tue12/02/22 at 0800, Until Discontinu ed, Routine [facility] doxycycline hyclate (Vibramycin ) capsule 100 mg 12-02 11:45: 00 12-07 11:44 :00 No 100mg 100 mg, Oral, Q12H ABX, 10 doses, First dose on Tue12/02/22 at 0645, Last dose on Tue12/06/22 at 1845, MICHAEL
Re ason for Anti-Infec tive: Empiric Therapy for Suspected Infection< br>Empiric Therapy Site: Respirator y
Durat ion of therapy: 5 days [facility] NaCl 0.9% (NS) IV infusion 1,000 mL 12-02 11:45: 00 12-02 14:24 :54 No 1000mL at 75 mL/hr, IV Infusion, CONTINUOUS , Starting on Tue12/02/22 at 0645, Until Tue12/02/22 at 0924, Routine [facility] famotidine (PEPCID AC) tablet 20 mg 12-02 11:30: 03 Yes 20mg 20 mg, Oral, BIDPRN, Starting on Tue12/02/22 at 0630, Until Discontinu ed, Routine, Indigestio n, Heartburn [facility] ondansetron (ZOFRAN (PF)) injection 4 mg 12-02 11:30: 03 Yes 4mg 4 mg, Slow IV Push, Q6HPRN, Starting on Tue12/02/22 at 0630, Until Discontinu ed, Routine, Nausea and Vomiting (N/V) [facility] bisacodyL (DULCOLAX) tablet 10 mg 12-02 11:30: 03 Yes 10mg 10 mg, Oral, QDAILYPRN, Starting on Tue12/02/22 at 0630, Until Discontinu ed, Routine, Constipati on [facility] acetaminoph en (TYLENOL) tablet 650 mg 12-02 11:30: 03 Yes 650mg 650 mg, Oral, Q6HPRN, Starting on Tue12/02/22 at 0630, Until Discontinu ed, Routine, Pain (scale 1-3) [facility] methylpredn isolone sod succ (SOLU-MEDRO L) injection 125 mg 12-02 06:15: 00 12-02 05:27 :00 No 125mg 125 mg, Intravenou s, ONCE, 1 dose, On Tue12/02/22 at 0115, 2 mL [facility] ipratropium -albuteroL (DUONEB) 0.5 mg-3 mg(2.5 mg base)/3 mL nebulizer solution 6 mL 12-02 06:15: 00 12-02 05:33 :00 No 6mL 6 mL, Inhalation , ONCE, 1 dose, On Tue12/02/22 at 0115, Routine [facility] levalbutero l (XOPENEX) nebulizer solution 0.63 mg 12-01 13:15: 00 12-01 12:38 :00 No .63mg 0.63 mg, Inhalation , ONCE, 1 dose, On Tue12/01/22 at 0815, Routine [facility] ipratropium (ATROVENT) 0.02 % nebulizer solution 0.5 mg 12-01 12:30: 00 12-01 12:38 :00 No .5mg 0.5 mg, Inhalation , ONCE, 1 dose, On Tue12/01/22 at 0730, MICHAEL [facility] levalbutero l (XOPENEX) nebulizer solution 1.25 mg 12-01 11:15: 00 12-01 10:38 :00 No 1.25mg 1.25 mg, Inhalation , ONCE, 1 dose, On Tue12/01/22 at 0615, Routine [facility] ipratropium (ATROVENT) 0.02 % nebulizer solution 0.5 mg 12-01 10:30: 00 12-01 10:38 :00 No .5mg 0.5 mg, Inhalation , ONCE, 1 dose, On Tue12/01/22 at 0530, [facility] methylPREDN ISolone sod succ (SOLU-MEDRO L (PF)) injection 40 mg 12-01 10:30: 00 12-01 10:35 :00 No 40mg 40 mg, Intravenou s, ONCE, 1 dose, On Tue12/01/22 at 0530, [facility] Nebulizer & Compressor For Neb Kami 12-01 00:00: 00 Yes [id number] Use as directed [facility] albuterol 90 mcg/actuati on inhaler 12-01 00:00: 00 Yes [id number] 2{puff} Inhale 2 Puffs every 4 (four) hours as needed for Wheezing or Shortness of Breath. [facility] Nebulizer & Compressor For Neb Kami 3-0 3-15 00:00: 00 Yes [id number] Use as directed [facility] albuterol 90 mcg/actuati on inhaler 2022-0 3-15 00:00: 00 Yes [id number] 2{puff} Inhale 2 Puffs every 4 (four) hours as needed for Wheezing or Shortness of Breath. [facility] Nebulizer & Compressor For Neb Kami 2022-0 3-15 00:00: 00 Yes [id number] Use as directed [facility] albuterol 90 mcg/actuati on inhaler 2022-0 3-15 00:00: 00 Yes [id number] 2{puff} Inhale 2 Puffs every 4 (four) hours as needed for Wheezing or Shortness of Breath. [facility] Nebulizer & Compressor For Neb Kami 2022-0 3-15 00:00: 00 Yes [id number] Use as directed [facility] Nebulizer & Compressor For Neb Kami 2022-0 3-15 00:00: 00 Yes [id number] Use as directed [facility] Nebulizer & Compressor For Neb Kami 2022-0 3-15 00:00: 00 Yes [id number] Use as directed [facility] Nebulizer & Compressor For Neb Kami 2022-0 3-15 00:00: 00 Yes [id number] Use as directed [facility] Nebulizer & Compressor For Neb Kami 2022-0 3-15 00:00: 00 Yes [id number] Use as directed [facility] Nebulizer & Compressor For Neb Kami 2022-0 3-15 00:00: 00 Yes [id number] Use as directed [facility] Nebulizer & Compressor For Neb Kami 2022-0 3-15 00:00: 00 Yes [id number] Use as directed [facility] Nebulizer & Compressor For Neb Kami 3-0 3-15 00:00: 00 Yes [id number] Use as directed [facility] Nebulizer & Compressor For Neb Kami 3-0 3-15 00:00: 00 Yes [id number] Use as directed [facility] Nebulizer & Compressor For Neb Kami 2022-0 3-15 00:00: 00 Yes [id number] Use as directed [facility] Nebulizer & Compressor For Neb Kami 2022-0 3-15 00:00: 00 Yes Use as directed [facility] Nebulizer & Compressor For Neb Kami 2022-0 3-15 00:00: 00 Yes [id number] Use as directed [facility] Nebulizer & Compressor For Neb Kami 2022-0 3-15 00:00: 00 Yes [id number] Use as directed [facility] Nebulizer & Compressor For Neb Kami 2022-0 3-15 00:00: 00 Yes [id number] Use as directed [facility] Nebulizer & Compressor For Neb Kami 2022-0 3-15 00:00: 00 Yes [id number] Use as directed [facility] Nebulizer & Compressor For Neb Kami 2022-0 3-15 00:00: 00 Yes [id number] Use as directed [facility] Nebulizer & Compressor For Neb Kami 2022-0 3-15 00:00: 00 Yes [id number] Use as directed [facility] Nebulizer & Compressor For Neb Kami 2022-0 3-15 00:00: 00 Yes [id number] Use as directed [facility] Nebulizer & Compressor For Neb Kami 2022-0 3-15 00:00: 00 Yes [id number] Use as directed [facility] Nebulizer & Compressor For Neb Kami 2022-0 3-15 00:00: 00 Yes [id number] Use as directed [facility] Nebulizer & Compressor For Neb Kami 2022-0 3-15 00:00: 00 Yes [id number] Use as directed [facility] Nebulizer & Compressor For Neb Kami 2022-0 3-15 00:00: 00 Yes [id number] Use as directed [facility] Nebulizer & Compressor For Neb Kami 2022-0 3-15 00:00: 00 Yes [id number] Use as directed [facility] Nebulizer & Compressor For Neb Kami 2022-0 3-15 00:00: 00 Yes [id number] Use as directed [facility] Nebulizer & Compressor For Neb Kami 2022-0 3-15 00:00: 00 Yes [id number] Use as directed [facility] Nebulizer & Compressor For Neb Kami 2022-0 3-15 00:00: 00 Yes [id number] Use as directed [facility] Nebulizer & Compressor For Neb Kami 2022-0 3-15 00:00: 00 Yes [id number] Use as directed [facility] Nebulizer & Compressor For Neb Kami 2022-0 3-15 00:00: 00 Yes [id number] Use as directed [facility] Nebulizer & Compressor For Neb Kami 2022-0 3-15 00:00: 00 Yes [id number] Use as directed [facility] Nebulizer & Compressor For Neb Kami 2022-0 3-15 00:00: 00 Yes [id number] Use as directed [facility] Nebulizer & Compressor For Neb Kami 2022-0 3-15 00:00: 00 Yes [id number] Use as directed [facility] Nebulizer & Compressor For Neb Kami 2022-0 3-15 00:00: 00 Yes [id number] Use as directed [facility] Nebulizer & Compressor For Neb Kami 2022-0 3-15 00:00: 00 Yes [id number] Use as directed [facility] Nebulizer & Compressor For Neb Kami 2022-0 3-15 00:00: 00 Yes [id number] Use as directed [facility] Nebulizer & Compressor For Neb Kami 3-0 3-15 00:00: 00 Yes [id number] Use as directed [facility] Nebulizer & Compressor For Neb Kami 3-0 3-15 00:00: 00 Yes [id number] Use as directed [facility] Nebulizer & Compressor For Neb Kami 3-0 3-15 00:00: 00 Yes [id number] Use as directed [facility] Nebulizer & Compressor For Neb Kami 2023-0 3-15 00:00: 00 Yes [id number] Use as directed [facility] Nebulizer & Compressor For Neb Kami 0 315 00:00: 00 Yes [id number] Use as directed [facility] Nebulizer & Compressor For Neb Kami 315 00:00: 00 Yes [id number] Use as directed [facility] Nebulizer & Compressor For Neb Kami 3-15 00:00: 00 Yes [id number] Use as directed [facility] mcg/actuati on inhaler 315 00:00: 00 Yes [id number] 2{puff} Inhale 2 Puffs every 4 (four) hours as needed for Wheezing or Shortness of Breath. [facility] predniSONE 50 mg tablet 315 00:00: 00 Yes [id number] 50mg Take 1 tablet by mouth in the morning. [facility] Nebulizer & Compressor For Neb Kami 315 00:00: 00 Yes [id number] Use as directed [facility] albuterol 90 mcg/actuati on inhaler 315 00:00: 00 Yes [id number] 2{puff} Inhale 2 Puffs every 4 (four) hours as needed for Wheezing or Shortness of Breath. [facility] albuterol 90 mcg/actuati on inhaler 15 00:00: 00 12-12 00:00 :00 No [id number] 2{puff} Inhale 2 Puffs every 4 (four) hours as needed for Wheezing or Shortness of Breath. [facility] predniSONE 50 mg tablet 315 00:00: 00 12-04 00:00 :00 No [id number] 50mg Take 1 tablet by mouth in the morning. [facility] omeprazole 40 mg capsule 12 14:11: 21 11-28 00:00 :00 No 40mg Take 40 mg by mouth daily. [facility] carved[facility]L 25 mg tablet 11-28 14:: 11-28 00:00 :00 No 25mg Take 25 mg by mouth 2 (two) times daily with meals. [facility] busPIRone 30 mg tablet 11-28 14:: 11-28 00:00 :00 No 30mg Take 30 mg by mouth 2 (two) times daily. [facility] benazepriL 10 mg tablet 11-28 14:: 11-28 00:00 :00 No 10mg Take 10 mg by mouth daily. [facility] hydroCHLORO thiazide 25 mg tablet 11-28 14:: 11-28 00:00 :00 No 25mg Take 25 mg by mouth daily. [facility] levalbutero l (XOPENEX) nebulizer solution 0.63 mg 11-28 13:00: 00 Yes .63mg 0.63 mg, Inhalation , TID, First dose (after last modificati on) on 11/28/22 at 0800, Until Discontinu ed, Rout[facility] ipratropium (ATROVENT) 0.02 % nebulizer solution 0.5 mg 11-27 20:00: 00 Yes .5mg 0.5 mg, Inhalation , TID, First dose (after last modificati on) on 11/27/22 at 1400, Until Discontinu ed, Routine [facility] nicotine (NICODERM) 21 mg/24 hr patch 1 Patch 11-27 17:30: 00 Yes 1{patch } 1 Patch, Topical, Administer over 24 Hours, Q24H, First dose on 11/27/22 at 1130, Until Discontinu ed, Routine [facility] busPIRone (BUSPAR) tablet 10 mg 11-27 16:15: 00 Yes 10mg 10 mg, Oral, TID, First dose on 11/27/22 at 1015, Until Discontinu ed, Routine [facility] chewable tablet 81 mg 11-27 16:15: 00 Yes 81mg 81 mg, Oral, DAILY, First dose on 11/27/22 at 1015, Until Discontinu ed, Routine [facility] foLIC acid (FOLATE) tablet 1 mg 11-27 15:00: 00 Yes 1mg 1 mg, Oral, DAILY, First dose on Tue11/27/22 at 0900, Until Discontinu ed, Routine [facility] rivaroxaban (XARELTO) tablet 20 mg 11-27 15:00: 00 Yes 20mg 20 mg, Oral, DAILY, First dose on 11/27/22 at 0900, Until Discontinu ed, Routine [facility] omeprazole (PRILOSEC) capsule 40 mg 11-27 15:00: 00 Yes 40mg 40 mg, Oral, DAILY, First dose on Tue11/27/22 at 0900, Until Discontinu ed [facility] predniSONE (DELTASONE) tablet 40 mg 11-27 15:00: 00 12-02 13:59 :00 No 40mg 40 mg, Oral, DAILY, 5 doses, First dose on Tue11/27/22 at 0900, Last dose on Tue12/01/22 at 0900, Routine [facility] carvediloL (COREG) tablet 25 mg 11-27 14:00: 00 Yes 25mg 25 mg, Oral, BID MEALS, First dose on Tue11/27/22 at 0800, Until Discontinu ed, Routine [facility] levalbutero l (XOPENEX) nebulizer solution 0.31 mg 11-27 14:00: 00 11-28 12:33 :58 No .31mg 0.31 mg, Inhalation , TID, First dose on Tue11/27/22 at 0800, Until Discontinu ed, Routine [facility] ipratropium (ATROVENT) 0.02 % nebulizer solution 0.5 mg 11-27 14:00: 00 11-27 18:48 :56 No .5mg 0.5 mg, Inhalation , QID, First dose on Tue11/27/22 at 0800, Until Discontinu ed, Routine [facility] thiamine (VITAMIN B1) tablet 100 mg 11-27 08:30: 00 Yes 100mg 100 mg, Oral, DAILY, First dose (after last modificati on) on Tue11/27/22 at 0230, Until Discontinu ed, Routine [facility] LORazepam (ATIVAN) injection 1 mg 11-27 08:16: 19 Yes 1mg 1 mg, Slow IV Push, Q4HPRN, Starting on Tue11/27/22 at 0216, Until Discontinu ed, Routine, Agitation, Seizures, withdrawl [facility] levalbutero l (XOPENEX) nebulizer solution 1.25 mg 11-19 14:00: 00 Yes 1.25mg 1.25 mg, Inhalation , TID, First dose on Tue11/19/22 at 0800, Until Discontinu ed, Routine [facility] ipratropium (ATROVENT) 0.02 % nebulizer solution 0.5 mg 11-19 09:30: 00 11-19 08:47 :00 No .5mg 0.5 mg, Inhalation , ONCE, 1 dose, On Tue11/19/22 at 0330, Routine [facility] levalbutero l (XOPENEX) nebulizer solution 1.25 mg 11-19 02:00: 00 11-19 01:21 :00 No 1.25mg 1.25 mg, Inhalation , ONCE, 1 dose, On Elizabeth 11/18/22 at 2000, Routine [facility] thiamine 100 mg tablet 224 00:00: 00 12-13 04:59 :00 No [id number] 100mg Take 1 tablet by mouth in the morning for 30 days. [facility] thiamine 100 mg tablet 0 2-24 00:00: 00 12-13 04:59 :00 No [id number] 100mg Take 1 tablet by mouth in the morning for 30 days. [facility] thiamine 100 mg tablet 0 2-24 00:00: 00 12-13 04:59 :00 No [id number] 100mg Take 1 tablet by mouth in the morning for 30 days. [facility] thiamine 100 mg tablet 0 224 00:00: 00 12-13 04:59 :00 No [id number] 100mg Take 1 tablet by mouth in the morning for 30 days. [facility] thiamine 100 mg tablet 0 24 00:00: 00 12-13 04:59 :00 No [id number] 100mg Take 1 tablet by mouth in the morning for 30 days. [facility] thiamine 100 mg tablet 0 24 00:00: 00 11-28 00:00 :00 No [id number] 100mg Take 1 tablet by mouth in the morning for 30 days. [facility] thiamine (VITAMIN B1) tablet 100 mg 11-11 15:00: 00 Yes 100mg 100 mg, Oral, DAILY, First dose on Tue11/11/22 at 0900, Until Discontinu ed, Routine [facility] omeprazole 40 mg capsule 11-11 13:41: 29 Yes 40mg Take 40 mg by mouth daily. [facility] carvediloL 25 mg tablet 11-11 13:41: 29 Yes 25mg Take 25 mg by mouth 2 (two) times daily with meals. [facility] busPIRone 30 mg tablet 11-11 13:41: 29 Yes 30mg Take 30 mg by mouth 2 (two) times daily. [facility] benazepriL 10 mg tablet 11-11 13:41: 29 Yes 10mg Take 10 mg by mouth daily. [facility] hydroCHLORO thiazide 25 mg tablet 11-11 13:41: 29 Yes 25mg Take 25 mg by mouth daily. [facility] omeprazole 40 mg capsule 11-11 13:41: 29 Yes 40mg Take 40 mg by mouth daily. [facility] carvediloL 25 mg tablet 11-11 13:41: 29 Yes 25mg Take 25 mg by mouth 2 (two) times daily with meals. [facility] busPIRone 30 mg tablet 11-11 13:41: 29 Yes 30mg Take 30 mg by mouth 2 (two) times daily. [facility] benazepriL 10 mg tablet 11-11 13:41: 29 Yes 10mg Take 10 mg by mouth daily. [facility] hydroCHLORO thiazide 25 mg tablet 11-11 13:41: 29 Yes 25mg Take 25 mg by mouth daily. [facility] omeprazole 40 mg capsule 11-11 13:41: 29 Yes 40mg Take 40 mg by mouth daily. [facility] carvediloL 25 mg tablet 11-11 13:41: 29 Yes 25mg Take 25 mg by mouth 2 (two) times daily with meals. [facility] busPIRone 30 mg tablet 11-11 13:41: 29 Yes 30mg Take 30 mg by mouth 2 (two) times daily. [facility] benazepriL 10 mg tablet 11-11 13:41: 29 Yes 10mg Take 10 mg by mouth daily. [facility] hydroCHLORO thiazide 25 mg tablet 11-11 13:41: 29 Yes 25mg Take 25 mg by mouth daily. [facility] omeprazole 40 mg capsule 11-11 13:41: 29 Yes 40mg Take 40 mg by mouth daily. [facility] carvediloL 25 mg tablet 11-11 13:41: 29 Yes 25mg Take 25 mg by mouth 2 (two) times daily with meals. [facility] busPIRone 30 mg tablet 11-11 13:41: 29 Yes 30mg Take 30 mg by mouth 2 (two) times daily. [facility] benazepriL 10 mg tablet 11-11 13:41: 29 Yes 10mg Take 10 mg by mouth daily. [facility] hydroCHLORO thiazide 25 mg tablet 11-11 13:41: 29 Yes 25mg Take 25 mg by mouth daily. [facility] omeprazole 40 mg capsule 11-11 13:41: 29 Yes 40mg Take 40 mg by mouth daily. [facility] carvediloL 25 mg tablet 11-11 13:41: 29 Yes 25mg Take 25 mg by mouth 2 (two) times daily with meals. [facility] busPIRone 30 mg tablet 11-11 13:41: 29 Yes 30mg Take 30 mg by mouth 2 (two) times daily. [facility] benazepriL 10 mg tablet 11-11 13:41: 29 Yes 10mg Take 10 mg by mouth daily. [facility] hydroCHLORO thiazide 25 mg tablet 11-11 13:41: 29 Yes 25mg Take 25 mg by mouth daily. [facility] foLIC acid (FOLATE) tablet 1 mg 11-11 00:15: 00 11-11 00:26 :00 No 1mg 1 mg, Oral, ONCE, 1 dose, On Tue11/10/22 at 1815, Routine [facility] benzocaine- menthoL lozenge 11-11 00:00: 00 Yes [id number] 1{lozen ge} Take 1 Lozenge by mouth every 4 (four) hours as needed for Sore throat. [facility] budesonide- formoteroL 80-4.5 mcg/actuati on inhaler 11-11 00:00: 00 Yes [id number] 2{puff} Inhale 2 Puffs in the morning and 2 Puffs in the evening. [facility] benzocaine- menthoL lozenge 11-11 00:00: 00 Yes [id number] 1{lozen ge} Take 1 Lozenge by mouth every 4 (four) hours as needed for Sore throat. [facility] budesonide- formoteroL 80-4.5 mcg/actuati on inhaler 11-11 00:00: 00 Yes [id number] 2{puff} Inhale 2 Puffs in the morning and 2 Puffs in the evening. [facility] benzocaine- menthoL lozenge 11-11 00:00: 00 Yes [id number] 1{lozen ge} Take 1 Lozenge by mouth every 4 (four) hours as needed for Sore throat. [facility] budesonide- formoteroL 80-4.5 mcg/actuati on inhaler 11-11 00:00: 00 Yes [id number] 2{puff} Inhale 2 Puffs in the morning and 2 Puffs in the evening. [facility] benzocaine- menthoL lozenge 11-11 00:00: 00 Yes [id number] 1{lozen ge} Take 1 Lozenge by mouth every 4 (four) hours as needed for Sore throat. [facility] budesonide- formoteroL 80-4.5 mcg/actuati on inhaler 11-11 00:00: 00 Yes [id number] 2{puff} Inhale 2 Puffs in the morning and 2 Puffs in the evening. [facility] benzocaine- menthoL lozenge 11-11 00:00: 00 Yes [id number] 1{lozen ge} Take 1 Lozenge by mouth every 4 (four) hours as needed for Sore throat. [facility] budesonide- formoteroL 80-4.5 mcg/actuati on inhaler 11-11 00:00: 00 Yes [id number] 2{puff} Inhale 2 Puffs in the morning and 2 Puffs in the evening. [facility] benzocaine- menthoL lozenge 11-11 00:00: 00 11-28 00:00 :00 No [id number] 1{lozen ge} Take 1 Lozenge by mouth every 4 (four) hours as needed for Sore throat. [facility] budesonide- formoteroL 80-4.5 mcg/actuati on inhaler 11-11 00:00: 00 11-28 00:00 :00 No [id number] 2{puff} Inhale 2 Puffs in the morning and 2 Puffs in the evening. [facility] sodium chloride 1 gram tablet 2022-0 11-11 00:00: 00 11-22 05:59 :00 No [id number] 1g Take 1 tablet by mouth in the morning and 1 tablet at noon and 1 tablet in the evening. Take with meals. Do all this for 10 days. [facility] sodium chloride 1 gram tablet 0 11-11 00:00: 00 11-22 05:59 :00 No [id number] 1g Take 1 tablet by mouth in the morning and 1 tablet at noon and 1 tablet in the evening. Take with meals. Do all this for 10 days. [facility] sodium chloride 1 gram tablet 11-11 00:00: 00 11-22 05:59 :00 No [id number] 1g Take 1 tablet by mouth in the morning and 1 tablet at noon and 1 tablet in the evening. Take with meals. Do all this for 10 days. [facility] sodium chloride 1 gram tablet 2022-0 11-11 00:00: 00 11-22 05:59 :00 No [id number] 1g Take 1 tablet by mouth in the morning and 1 tablet at noon and 1 tablet in the evening. Take with meals. Do all this for 10 days. [facility] levoFLOXaci n 750 mg tablet 11-11 00:00: 00 11-17 05:59 :00 No [id number] 750mg Take 1 tablet by mouth every 24 (twenty-fo ur) hours for 5 days. [facility] levoFLOXaci n 750 mg tablet 2022-11-11 00:00: 00 11-17 05:59 :00 No [id number] 750mg Take 1 tablet by mouth every 24 (twenty-fo ur) hours for 5 days. [facility] predniSONE 20 mg tablet 2022-0 11-11 00:00: 00 11-15 05:59 :00 No [id number] 40mg Take 2 tablets by mouth in the morning for 3 days. [facility] predniSONE 20 mg tablet 2022-0 11-11 00:00: 11-15 05:59 :00 No [id number] 40mg Take 2 tablets by mouth in the morning for 3 days. [facility] sodium chloride tablet 1 g 11-10 23:15: 00 Yes 1g 1 g, Oral, TID MEALS, First dose on Tue11/10/22 at 1715, Until Discontinu ed, Routine [facility] benzocaine- menthoL (CEPACOL SORE THROAT (JACINTO-MEN)) lozenge 1 Lozenge 11-10 20:49: 25 Yes 1{lozen ge} 1 Lozenge, Oral, Q4HPRN, Starting on Tue11/10/22 at 1449, Until Discontinu ed, Routine, Sore throat [facility] budesonide- formoteroL (SYMBICORT) 80-4.5 mcg/actuati on inhaler 2 Puff 11-10 17:30: 00 Yes 2{puff} 2 Puff, Inhalation , BID, First dose on Tue11/10/22 at 1130, Until Discontinu ed, [facility]ine [facility]ep[facility] (PRILOSEC) capsule 40 mg 11-10 15:00: 00 Yes 40mg 40 mg, Oral, DAILY, First dose on Tue11/10/22 at 0900, Until Discontinu ed [facility] rivaroxaban (XARELTO) tablet 20 mg 11-10 15:00: 00 Yes 20mg 20 mg, Oral, DAILY, First dose on Tue11/10/22 at 0900, Until Discontinu ed, Routine [facility] aspirin chewable tablet 81 mg 11-10 15:00: 00 Yes 81mg 81 mg, Oral, DAILY, First dose on Tue11/10/22 at 0900, Until Discontinu ed, Routine [facility] methylPREDN ISolone sod succ (SOLU-MEDRO L (PF)) injection 40 mg 11-10 15:00: 00 11-14 14:59 :00 No 40mg 40 mg, Intravenou s, DAILY, 4 doses, First dose on Tue11/10/22 at 0900, Last dose on Tue11/13/22 at 0900, 1 mL [facility] NaCl 0.9% (NS) IV infusion 1,000 mL 11-10 09:00: 00 Yes 1000mL at 100 mL/hr, IV Infusion, CONTINUOUS , Starting on Tue11/10/22 at 0300, Until Discontinu ed, Routine [facility] levoFLOXaci n in D5W (LEVAQUIN) 750 [...] Urine
D uration of therapy: 5 days [facility] busPIRone (BUSPAR) tablet 30 mg 11-10 02:00: 00 Yes 30mg 30 mg, Oral, BID, First dose on Tue11/09/22 at 2000, Until Discontinu ed, Routine [facility] carvediloL (COREG) tablet 25 mg 11-09 23:00: 00 Yes 25mg 25 mg, Oral, BID MEALS, First dose on Tue11/09/22 at 1700, Until Discontinu ed, Routine [facility] ipratropium (ATROVENT) 0.02 % nebulizer solution 0.5 mg 11-09 22:00: 00 Yes .5mg 0.5 mg, Inhalation , Q4H, First dose on Tue11/09/22 at 1600, Until Discontinu ed, Routine [facility] albuterol (PROVENTIL) 2.5 mg /3 [...] 1 dose, On Tue11/09/22 at 1415, STAT [facility] ondansetron (ZOFRAN (PF)) injection 4 mg 11-09 20:04: 17 Yes 4mg 4 mg, Slow IV Push, Q6HPRN, Starting on Tue11/09/22 at 1404, Until Discontinu ed, Routine, Nausea and Vomiting (N/V) [facility] acetaminoph en (TYLENOL) tablet 650 mg 11-09 20:04: 07 Yes 650mg 650 mg, Oral, Q6HPRN, Starting on Tue11/09/22 at 1404, Until Discontinu ed, Routine, Pain (scale 1-3), Temp > 38 C [facility] albuterol (PROVENTIL) 2.5 mg /3 mL (0.083 %) nebulizer solution 5 mg 11-09 14:00: 00 11-09 14:05 :00 No 5mg 5 mg, Inhalation , ONCE, 1 dose, On Tue11/09/22 at 0800, STAT [facility] albuterol (PROVENTIL) 2.5 mg /3 mL (0.083 %) nebulizer solution 10 mg 11-09 11:00: 00 11-09 11:04 :00 No 10mg 10 mg, Inhalation , ONCE, 1 dose, On Tue11/09/22 at 0500, STAT [facility] ipratropium (ATROVENT) 0.02 % nebulizer solution 0.5 mg 11-09 09:00: 00 11-09 08:59 :00 No .5mg 0.5 mg, Inhalation , ONCE, 1 dose, On Tue11/09/22 at 0300, MICHAEL [facility] albuterol (PROVENTIL) 2.5 mg /3 mL (0.083 %) nebulizer solution 2.5 mg 11-09 09:00: 00 11-09 08:59 :00 No 2.5mg 2.5 mg, Inhalation , ONCE, 1 dose, On Tue11/09/22 at 0300, STAT [facility] magnesium sulfate in water 2 gram/50 mL (4 %) infusion 2 g 11-09 08:30: 00 11-09 08:22 :00 No 2g 2 g, IV Piggyback, Administer over 60 Minutes, ONCE, 1 dose, On Tue11/09/22 at 0230, Routine [facility] methylPREDN ISolone sodium succinate (SOLU-MEDRO L) injection 125 mg 11-09 07:45: 00 11-09 07:41 :00 No 125mg 125 mg, Intravenou s, ONCE, 1 dose, On Tue11/09/22 at 0145, MICHAEL [facility] ipratropium (ATROVENT) 0.02 % nebulizer solution 0.5 mg 11-09 07:45: 00 11-09 07:40 :00 No .5mg 0.5 mg, Inhalation , ONCE, 1 dose, On Tue11/09/22 at 0145, MICHAEL [facility] albuterol (PROVENTIL) 2.5 mg /3 mL (0.083 %) nebulizer solution 2.5 mg 11-09 07:45: 00 11-09 07:40 :00 No 2.5mg 2.5 mg, Inhalation , ONCE, 1 dose, On Tue11/09/22 at 0145, STAT [facility] cephALEXin (KEFLEX) 500 mg capsule 05-22 00:00: 00 Yes [id number] 500mg Take 1 capsule by mouth 4 (four) times daily. [facility] cephALEXin (KEFLEX) 500 mg capsule 05-22 00:00: 00 Yes [id number] 500mg Take 1 capsule by mouth 4 (four) times daily. [facility] cephALEXin (KEFLEX) 500 mg capsule 05-22 00:00: 00 11-11 00:00 :00 No [id number] 500mg Take 1 capsule by mouth 4 (four) times daily. [facility] cefTRIAXone (ROCEPHIN) 1,000 mg in NaCl 0.9% (NS) 50 mL MINI-BAG 12-12 19:00: 00 12-12 18:23 :00 No 1000mg 1,000 mg, IV Piggyback, ONCE, 1 dose, Tue12/12/20 at 1400, 50 mL
Reas on for Anti-Infec tive: Empiric Therapy for Suspected Infection< br>Empiric Therapy Site: Urine
D uration of therapy: 72 hours [facility] carvediloL 25 mg tablet 12-12 18:38: 04 Yes 25mg Take 25 mg by mouth 2 (two) times daily with meals. [facility] busPIRone 30 mg tablet 12-12 18:38: 04 Yes 30mg Take 30 mg by mouth 2 (two) times daily. [facility] benazepriL 10 mg tablet 12-12 18:38: 04 Yes 10mg Take 10 mg by mouth daily. [facility] hydroCHLORO thiazide 25 mg tablet 12-12 18:38: 04 Yes 25mg Take 25 mg by mouth daily. [facility] carvediloL 25 mg tablet 12-12 18:38: 04 Yes 25mg Take 25 mg by mouth 2 (two) times daily with meals. [facility] busPIRone 30 mg tablet 12-12 18:38: 04 Yes 30mg Take 30 mg by mouth 2 (two) times daily. [facility] benazepriL 10 mg tablet 12-12 18:38: 04 Yes 10mg Take 10 mg by mouth daily. [facility] hydroCHLORO thiazide 25 mg tablet 12-12 18:38: 04 Yes 25mg Take 25 mg by mouth daily. [facility] carvediloL 25 mg tablet 12-12 18:38: 04 Yes 25mg Take 25 mg by mouth 2 (two) times daily with meals. [facility] busPIRone 30 mg tablet 12-12 18:38: 04 Yes 30mg Take 30 mg by mouth 2 (two) times daily. [facility] benazepriL 10 mg tablet 12-12 18:38: 04 Yes 10mg Take 10 mg by mouth daily. [facility] hydroCHLORO thiazide 25 mg tablet 12-12 18:38: 04 Yes 25mg Take 25 mg by mouth daily. [facility] carvediloL 25 mg tablet 12-12 18:38: 04 Yes 25mg Take 25 mg by mouth 2 (two) times daily with meals. [facility] busPIRone 30 mg tablet 12-12 18:38: 04 Yes 30mg Take 30 mg by mouth 2 (two) times daily. [facility] benazepriL 10 mg tablet 12-12 18:38: 04 Yes 10mg Take 10 mg by mouth daily. [facility] hydroCHLORO thiazide 25 mg tablet 12-12 18:38: 04 Yes 25mg Take 25 mg by mouth daily. [facility] carvediloL 25 mg tablet 12-12 18:38: 04 Yes 25mg Take 25 mg by mouth 2 (two) times daily with meals. [facility] busPIRone 30 mg tablet 12-12 18:38: 04 Yes 30mg Take 30 mg by mouth 2 (two) times daily. [facility] benazepriL 10 mg tablet 12-12 18:38: 04 Yes 10mg Take 10 mg by mouth daily. [facility] hydroCHLORO thiazide 25 mg tablet 12-12 18:38: 04 Yes 25mg Take 25 mg by mouth daily. [facility] carvediloL 25 mg tablet 12-12 18:38: 04 Yes 25mg Take 25 mg by mouth 2 (two) times daily with meals. [facility] busPIRone 30 mg tablet 12-12 18:38: 04 Yes 30mg Take 30 mg by mouth 2 (two) times daily. [facility] benazepriL 10 mg tablet 12-12 18:38: 04 Yes 10mg Take 10 mg by mouth daily. [facility] hydroCHLORO thiazide 25 mg tablet 12-12 18:38: 04 Yes 25mg Take 25 mg by mouth daily. [facility] carvediloL 25 mg tablet 12-12 18:38: 04 Yes 25mg Take 25 mg by mouth 2 (two) times daily with meals. [facility] busPIRone 30 mg tablet 12-12 18:38: 04 Yes 30mg Take 30 mg by mouth 2 (two) times daily. [facility] benazepriL 10 mg tablet 12-12 18:38: 04 Yes 10mg Take 10 mg by mouth daily. [facility] hydroCHLORO thiazide 25 mg tablet 12-12 18:38: 04 Yes 25mg Take 25 mg by mouth daily. [facility] carvediloL 25 mg tablet 12-12 18:38: 04 Yes 25mg Take 25 mg by mouth 2 (two) times daily with meals. [facility] busPIRone 30 mg tablet 12-12 18:38: 04 Yes 30mg Take 30 mg by mouth 2 (two) times daily. [facility] benazepriL 10 mg tablet 12-12 18:38: 04 Yes 10mg Take 10 mg by mouth daily. [facility] hydroCHLORO thiazide 25 mg tablet 12-12 18:38: 04 Yes 25mg Take 25 mg by mouth daily. [facility] carvediloL 25 mg tablet 12-12 18:38: 04 Yes 25mg Take 25 mg by mouth 2 (two) times daily with meals. [facility] busPIRone 30 mg tablet 12-12 18:38: 04 Yes 30mg Take 30 mg by mouth 2 (two) times daily. [facility] benazepriL 10 mg tablet 12-12 18:38: 04 Yes 10mg Take 10 mg by mouth daily. [facility] hydroCHLORO thiazide 25 mg tablet 12-12 18:38: 04 Yes 25mg Take 25 mg by mouth daily. [facility] carvediloL 25 mg tablet 12-12 18:38: 04 Yes 25mg Take 25 mg by mouth 2 (two) times daily with meals. [facility] busPIRone 30 mg tablet 12-12 18:38: 04 Yes 30mg Take 30 mg by mouth 2 (two) times daily. [facility] benazepriL 10 mg tablet 12-12 18:38: 04 Yes 10mg Take 10 mg by mouth daily. [facility] hydroCHLORO thiazide 25 mg tablet 12-12 18:38: 04 Yes 25mg Take 25 mg by mouth daily. [facility] carvediloL 25 mg tablet 12-12 18:38: 04 Yes 25mg Take 25 mg by mouth 2 (two) times daily with meals. [facility] busPIRone 30 mg tablet 12-12 18:38: 04 Yes 30mg Take 30 mg by mouth 2 (two) times daily. [facility] benazepriL 10 mg tablet 12-12 18:38: 04 Yes 10mg Take 10 mg by mouth daily. [facility] hydroCHLORO thiazide 25 mg tablet 12-12 18:38: 04 Yes 25mg Take 25 mg by mouth daily. [facility] carvediloL 25 mg tablet 12-12 18:38: 04 Yes 25mg Take 25 mg by mouth 2 (two) times daily with meals. [facility] busPIRone 30 mg tablet 12-12 18:38: 04 Yes 30mg Take 30 mg by mouth 2 (two) times daily. [facility] benazepriL 10 mg tablet 12-12 18:38: 04 Yes 10mg Take 10 mg by mouth daily. [facility] hydroCHLORO thiazide 25 mg tablet 12-12 18:38: 04 Yes 25mg Take 25 mg by mouth daily. [facility] carvediloL 25 mg tablet 12-12 18:38: 04 Yes 25mg Take 25 mg by mouth 2 (two) times daily with meals. [facility] busPIRone 30 mg tablet 12-12 18:38: 04 Yes 30mg Take 30 mg by mouth 2 (two) times daily. [facility] benazepriL 10 mg tablet 12-12 18:38: 04 Yes 10mg Take 10 mg by mouth daily. [facility] hydroCHLORO thiazide 25 mg tablet 12-12 18:38: 04 Yes 25mg Take 25 mg by mouth daily. [facility] carvediloL 25 mg tablet 12-12 18:38: 04 Yes 25mg Take 25 mg by mouth 2 (two) times daily with meals. [facility] busPIRone 30 mg tablet 12-12 18:38: 04 Yes 30mg Take 30 mg by mouth 2 (two) times daily. [facility] benazepriL 10 mg tablet 12-12 18:38: 04 Yes 10mg Take 10 mg by mouth daily. [facility] hydroCHLORO thiazide 25 mg tablet 12-12 18:38: 04 Yes 25mg Take 25 mg by mouth daily. [facility] carvediloL 25 mg tablet 12-12 18:38: 04 Yes 25mg Take 25 mg by mouth 2 (two) times daily with meals. [facility] busPIRone 30 mg tablet 12-12 18:38: 04 Yes 30mg Take 30 mg by mouth 2 (two) times daily. [facility] benazepriL 10 mg tablet 12-12 18:38: 04 Yes 10mg Take 10 mg by mouth daily. [facility] hydroCHLORO thiazide 25 mg tablet 12-12 18:38: 04 Yes 25mg Take 25 mg by mouth daily. [facility] iohexol (OMNIPAQUE 350 BULK-150 mL) injection 120 mL 12-12 17:30: 00 12-12 17:21 :00 No [id number] 120mL 120 mL, Intravenou s, ONCE, 1 dose, Tue12/12/20 at 1230, Routine [facility] aspirin 81 mg EC tablet 12-12 16:57: 40 12-12 00:00 :00 No 81mg Take 81 mg by mouth daily. [facility] varenicline (CHANTIX) 1 mg tablet 12-12 16:57: 18 12-12 00:00 :00 No 1mg Take 1 mg by mouth 2 (two) times daily. [facility] predniSONE 20 mg tablet 12-12 16:57: 12 12-12 00:00 :00 No 20mg Take 20 mg by mouth daily. [facility] fluticasone -umeclidin- vilanter (TRELEGY ELLIPTA) 100-62.5-25 mcg DsDv 12-12 16:56: 46 12-12 00:00 :00 No 1{puff} Inhale 1 Puff daily. [facility] cefpodoxime 100 mg tablet 12-12 00:00: 00 Yes [id number] 100mg Take 1 tablet by mouth 2 (two) times daily. [facility] cefpodoxime 100 mg tablet 12-12 00:00: 00 Yes [id number] 100mg Take 1 tablet by mouth 2 (two) times daily. [facility] cefpodoxime 100 mg tablet 12-12 00:00: 00 Yes [id number] 100mg Take 1 tablet by mouth 2 (two) times daily. [facility] cefpodoxime 100 mg tablet 12-12 00:00: 00 Yes [id number] 100mg Take 1 tablet by mouth 2 (two) times daily. [facility] cefpodoxime 100 mg tablet 12-12 00:00: 00 Yes [id number] 100mg Take 1 tablet by mouth 2 (two) times daily. [facility] cefpodoxime 100 mg tablet 2020-0 12-12 00:00: 00 Yes [id number] 100mg Take 1 tablet by mouth 2 (two) times daily. [facility] cefpodoxime 100 mg tablet 2020-0 12-12 00:00: 00 Yes [id number] 100mg Take 1 tablet by mouth 2 (two) times daily. [facility] cefpodoxime 100 mg tablet 2020-0 12-12 00:00: 00 Yes [id number] 100mg Take 1 tablet by mouth 2 (two) times daily. [facility] cefpodoxime 100 mg tablet 2020-0 12-12 00:00: 00 Yes [id number] 100mg Take 1 tablet by mouth 2 (two) times daily. [facility] cefpodoxime 100 mg tablet 2020-0 12-12 00:00: 00 Yes [id number] 100mg Take 1 tablet by mouth 2 (two) times daily. [facility] cefpodoxime 100 mg tablet 2020-0 12-12 00:00: 00 Yes [id number] 100mg Take 1 tablet by mouth 2 (two) times daily. [facility] cefpodoxime 100 mg tablet 2020-0 12-12 00:00: 00 Yes [id number] 100mg Take 1 tablet by mouth 2 (two) times daily. [facility] cefpodoxime 100 mg tablet 2020-0 12-12 00:00: 00 Yes [id number] 100mg Take 1 tablet by mouth 2 (two) times daily. [facility] cefpodoxime 100 mg tablet 2020-0 12-12 00:00: 00 Yes [id number] 100mg Take 1 tablet by mouth 2 (two) times daily. [facility] cefpodoxime 100 mg tablet 2020-0 12-12 00:00: 00 Yes [id number] 100mg Take 1 tablet by mouth 2 (two) times daily. [facility] cefpodoxime 100 mg tablet 2020-0 12-12 00:00: 00 20211-11 00:00 :00 No [id number] 100mg Take 1 tablet by mouth 2 (two) times daily. [facility] cefpodoxime 100 mg tablet 12-12 00:00: 00 12-12 00:00 :00 No [id number] 100mg Take 1 tablet by mouth 2 (two) times daily for 7 days. [facility] XARELTO 15 mg tablet 10-16 00:00: 00 Yes [facility] XARELTO 15 mg tablet 10-16 00:00: 00 Yes [facility] XARELTO 15 mg tablet 10-16 00:00: 00 Yes [facility] XARELTO 15 mg tablet 10-16 00:00: 00 Yes [facility] XARELTO 15 mg tablet 10-16 00:00: 00 Yes [facility] XARELTO 15 mg tablet 10-16 00:00: 00 Yes [facility] XARELTO 15 mg tablet 10-16 00:00: 00 Yes [facility] XARELTO 15 mg tablet 10-16 00:00: 00 Yes [facility] XARELTO 15 mg tablet 10-16 00:00: 00 Yes [facility] XARELTO 15 mg tablet 10-16 00:00: 00 Yes [facility] XARELTO 15 mg tablet 10-16 00:00: 00 Yes [facility] XARELTO 15 mg tablet 10-16 00:00: 00 Yes [facility] XARELTO 15 mg tablet 10-16 00:00: 00 Yes [facility] XARELTO 15 mg tablet 10-16 00:00: 00 Yes [facility] XARELTO 15 mg tablet 10-16 00:00: 00 Yes [facility] XARELTO 15 mg tablet 10-16 00:00: 00 Yes [facility] XARELTO 15 mg tablet 10-16 00:00: 00 Yes [facility] XARELTO 15 mg tablet 10-16 00:00: 00 Yes [facility] XARELTO 15 mg tablet 10-16 00:00: 00 Yes [facility] XARELTO 15 mg tablet 10-16 00:00: 00 Yes [facility] XARELTO 15 mg tablet 10-16 00:00: 00 Yes [facility] XARELTO 15 mg tablet 10-16 00:00: 00 Yes [facility] XARELTO 15 mg tablet 10-16 00:00: 00 Yes [facility] XARELTO 15 mg tablet 10-16 00:00: 00 11-28 00:00 :00 No [facility] omeprazole 40 mg capsule 2018-09 00:11: 42 Yes 40mg Take 40 mg by mouth daily. [facility] omeprazole 40 mg capsule 2018-09 00:11: 42 Yes 40mg Take 40 mg by mouth daily. [facility] varenicline (CHANTIX) 1 mg tablet 2018-09 00:11: 42 Yes 1mg Take 1 mg by mouth 2 (two) times daily. [facility] predniSONE 20 mg tablet 2018-09 00:11: 42 Yes 20mg Take 20 mg by mouth daily. [facility] omeprazole 40 mg capsule 2018-09 00:11: 42 Yes 40mg Take 40 mg by mouth daily. [facility] fluticasone -umeclidin- vilanter (TRELEGY ELLIPTA) 100-62.5-25 mcg DsDv 2018-09 00:11: 42 Yes 1{puff} Inhale 1 Puff daily. [facility] aspirin 81 mg EC tablet 2018-09 00:11: 42 Yes 81mg Take 81 mg by mouth daily. [facility] varenicline (CHANTIX) 1 mg tablet 2018-09 00:11: 42 Yes 1mg Take 1 mg by mouth 2 (two) times daily. [facility] predniSONE 20 mg tablet 2018-09 00:11: 42 Yes 20mg Take 20 mg by mouth daily. [facility] omeprazole 40 mg capsule 2018-09 00:11: 42 Yes 40mg Take 40 mg by mouth daily. [facility] fluticasone -umeclidin- vilanter (TRELEGY ELLIPTA) 100-62.5-25 mcg DsDv 2018-09 00:11: 42 Yes 1{puff} Inhale 1 Puff daily. [facility] aspirin 81 mg EC tablet 2018-09 00:11: 42 Yes 81mg Take 81 mg by mouth daily. [facility] varenicline (CHANTIX) 1 mg tablet 2018-09 00:11: 42 Yes 1mg Take 1 mg by mouth 2 (two) times daily. [facility] predniSONE 20 mg tablet 2018-09 00:11: 42 Yes 20mg Take 20 mg by mouth daily. [facility] omeprazole 40 mg capsule 2018-09 00:11: 42 Yes 40mg Take 40 mg by mouth daily. [facility] fluticasone -umeclidin- vilanter (TRELEGY ELLIPTA) 100-62.5-25 mcg DsDv 2018-09 00:11: 42 Yes 1{puff} Inhale 1 Puff daily. [facility] aspirin 81 mg EC tablet 2018-09 00:11: 42 Yes 81mg Take 81 mg by mouth daily. [facility] varenicline (CHANTIX) 1 mg tablet 2018-09 00:11: 42 Yes 1mg Take 1 mg by mouth 2 (two) times daily. [facility] predniSONE 20 mg tablet 2018-09 00:11: 42 Yes 20mg Take 20 mg by mouth daily. [facility] omeprazole 40 mg capsule 2018-09 00:11: 42 Yes 40mg Take 40 mg by mouth daily. [facility] fluticasone -umeclidin- vilanter (TRELEGY ELLIPTA) 100-62.5-25 mcg DsDv 2018-09 00:11: 42 Yes 1{puff} Inhale 1 Puff daily. [facility] aspirin 81 mg EC tablet 2018-09 00:11: 42 Yes 81mg Take 81 mg by mouth daily. [facility] varenicline (CHANTIX) 1 mg tablet 2018-09 00:11: 42 Yes 1mg Take 1 mg by mouth 2 (two) times daily. [facility] predniSONE 20 mg tablet 2018-09 00:11: 42 Yes 20mg Take 20 mg by mouth daily. [facility] omeprazole 40 mg capsule 2018-09 00:11: 42 Yes 40mg Take 40 mg by mouth daily. [facility] fluticasone -umeclidin- vilanter (TRELEGY ELLIPTA) 100-62.5-25 mcg DsDv 2018-09 00:11: 42 Yes 1{puff} Inhale 1 Puff daily. [facility] aspirin 81 mg EC tablet 2018-09 00:11: 42 Yes 81mg Take 81 mg by mouth daily. [facility] varenicline (CHANTIX) 1 mg tablet 2018-09 00:11: 42 Yes 1mg Take 1 mg by mouth 2 (two) times daily. [facility] predniSONE 20 mg tablet 2018-09 00:11: 42 Yes 20mg Take 20 mg by mouth daily. [facility] omeprazole 40 mg capsule 2018-09 00:11: 42 Yes 40mg Take 40 mg by mouth daily. [facility] fluticasone -umeclidin- vilanter (TRELEGY ELLIPTA) 100-62.5-25 mcg DsDv 2018-09 00:11: 42 Yes 1{puff} Inhale 1 Puff daily. [facility] aspirin 81 mg EC tablet 2018-09 00:11: 42 Yes 81mg Take 81 mg by mouth daily. [facility] omeprazole 40 mg capsule 2018-09 00:11: 42 Yes 40mg Take 40 mg by mouth daily. [facility] omeprazole 40 mg capsule 2018-09 00:11: 42 Yes 40mg Take 40 mg by mouth daily. [facility] omeprazole 40 mg capsule 2018-09 00:11: 42 Yes 40mg Take 40 mg by mouth daily. [facility] omeprazole 40 mg capsule 2018-09 00:11: 42 Yes 40mg Take 40 mg by mouth daily. [facility] omeprazole 40 mg capsule 2018-09 00:11: 42 Yes 40mg Take 40 mg by mouth daily. [facility] omeprazole 40 mg capsule 2018-09 00:11: 42 Yes 40mg Take 40 mg by mouth daily. [facility] omeprazole 40 mg capsule 2018-09 00:11: 42 Yes 40mg Take 40 mg by mouth daily. [facility] omeprazole 40 mg capsule 2018-09 00:11: 42 Yes 40mg Take 40 mg by mouth daily. [facility] omeprazole 40 mg capsule 2018-09 00:11: 42 Yes 40mg Take 40 mg by mouth daily. [facility] omeprazole 40 mg capsule 2018-09 00:11: 42 Yes 40mg Take 40 mg by mouth daily. [facility] omeprazole 40 mg capsule 2018-09 00:11: 42 Yes 40mg Take 40 mg by mouth daily. [facility] omeprazole 40 mg capsule 2018-09 00:11: 42 Yes 40mg Take 40 mg by mouth daily. [facility] omeprazole 40 mg capsule 2018-09 00:11: 42 Yes 40mg Take 40 mg by mouth daily. [facility] KCL 20 mEq tablet 2018-09 00:00: 00 Yes [id number] 40meq Take 2 tablets by mouth daily. [facility] KCL 20 mEq tablet 2018-09 00:00: 00 Yes [id number] 40meq Take 2 tablets by mouth daily. [facility] atorvastati n 20 mg tablet 2018-09 00:00: 00 Yes [id number] 20mg Take 1 tablet by mouth at bedtime. [facility] metoprolol succinate XL 50 mg 24 hr tablet 2018-09 00:00: 00 Yes [id number] 50mg Take 1 tablet by mouth 2 (two) times daily. [facility] furosemide 40 mg tablet 2018-09 00:00: 00 Yes [id number] 40mg Take 1 tablet by mouth every morning and evening. [facility] KCL 20 mEq tablet 2018-09 00:00: 00 Yes [id number] 40meq Take 2 tablets by mouth daily. [facility] atorvastati n 20 mg tablet 2018-09 00:00: 00 Yes [id number] 20mg Take 1 tablet by mouth at bedtime. [facility] metoprolol succinate XL 50 mg 24 hr tablet 2018-09 00:00: 00 Yes [id number] 50mg Take 1 tablet by mouth 2 (two) times daily. [facility] furosemide 40 mg tablet 2018-09 00:00: 00 Yes [id number] 40mg Take 1 tablet by mouth every morning and evening. [facility] KCL 20 mEq tablet 2018-09 00:00: 00 Yes [id number] 40meq Take 2 tablets by mouth daily. [facility] atorvastati n 20 mg tablet 2018-09 00:00: 00 Yes [id number] 20mg Take 1 tablet by mouth at bedtime. [facility] metoprolol succinate XL 50 mg 24 hr tablet 2018-09 00:00: 00 Yes [id number] 50mg Take 1 tablet by mouth 2 (two) times daily. [facility] furosemide 40 mg tablet 2018-09 00:00: 00 Yes [id number] 40mg Take 1 tablet by mouth every morning and evening. [facility] KCL 20 mEq tablet 2018-09 00:00: 00 Yes [id number] 40meq Take 2 tablets by mouth daily. [facility] atorvastati n 20 mg tablet 2018-09 00:00: 00 Yes [id number] 20mg Take 1 tablet by mouth at bedtime. [facility] metoprolol succinate XL 50 mg 24 hr tablet 2018-09 00:00: 00 Yes [id number] 50mg Take 1 tablet by mouth 2 (two) times daily. [facility] furosemide 40 mg tablet 2018-09 00:00: 00 Yes [id number] 40mg Take 1 tablet by mouth every morning and evening. [facility] KCL 20 mEq tablet 2018-09 00:00: 00 Yes [id number] 40meq Take 2 tablets by mouth daily. [facility] atorvastati n 20 mg tablet 2018-09 00:00: 00 Yes [id number] 20mg Take 1 tablet by mouth at bedtime. [facility] metoprolol succinate XL 50 mg 24 hr tablet 2018-09 00:00: 00 Yes [id number] 50mg Take 1 tablet by mouth 2 (two) times daily. [facility] furosemide 40 mg tablet 2018-09 00:00: 00 Yes [id number] 40mg Take 1 tablet by mouth every morning and evening. [facility] KCL 20 mEq tablet 2018-09 00:00: 00 Yes [id number] 40meq Take 2 tablets by mouth daily. [facility] atorvastati n 20 mg tablet 2018-09 00:00: 00 Yes [id number] 20mg Take 1 tablet by mouth at bedtime. [facility] metoprolol succinate XL 50 mg 24 hr tablet 2018-09 00:00: 00 Yes [id number] 50mg Take 1 tablet by mouth 2 (two) times daily. [facility] furosemide 40 mg tablet 2018-09 00:00: 00 Yes [id number] 40mg Take 1 tablet by mouth every morning and evening. [facility] KCL 20 mEq tablet 2018-09 00:00: 00 Yes [id number] 40meq Take 2 tablets by mouth daily. [facility] KCL 20 mEq tablet 2018-09 00:00: 00 Yes [id number] 40meq Take 2 tablets by mouth daily. [facility] K[facility] mEq tablet 2018-09 00:00: 00 Yes [id number] 40meq Take 2 tablets by mouth daily. [facility] KCL 20 mEq tablet 2018-09 00:00: 00 Yes [id number] 40meq Take 2 tablets by mouth daily. [facility] KCL 20 mEq tablet 2018-09 00:00: 00 Yes [id number] 40meq Take 2 tablets by mouth daily. [facility] KCL 20 mEq tablet 2018-09 00:00: 00 Yes [id number] 40meq Take 2 tablets by mouth daily. [facility] KCL 20 mEq tablet 2018-09 00:00: 00 Yes [id number] 40meq Take 2 tablets by mouth daily. [facility] KCL 20 mEq tablet 2018-09 00:00: 00 Yes [id number] 40meq Take 2 tablets by mouth daily. [facility] KCL 20 mEq tablet 2018-09 00:00: 00 Yes [id number] 40meq Take 2 tablets by mouth daily. [facility] KCL 20 mEq tablet 2018-09 00:00: 00 Yes [id number] 40meq Take 2 tablets by mouth daily. [facility] KCL 20 mEq tablet 2018-09 00:00: 00 Yes [id number] 40meq Take 2 tablets by mouth daily. [facility] KCL 20 mEq tablet 2018-09 00:00: 00 Yes [id number] 40meq Take 2 tablets by mouth daily. [facility] KCL 20 mEq tablet 2018-09 00:00: 00 Yes [id number] 40meq Take 2 tablets by mouth daily. [facility] KCL 20 mEq tablet 2018-09 00:00: 00 Yes [id number] 40meq Take 2 tablets by mouth daily. [facility] KCL 20 mEq tablet 2018-09 00:00: 00 Yes [id number] 40meq Take 2 tablets by mouth daily. [facility] KCL 20 mEq tablet 2018-09 00:00: 00 Yes [id number] 40meq Take 2 tablets by mouth daily. [facility] KCL 20 mEq tablet 2018-09 00:00: 00 Yes [id number] 40meq Take 2 tablets by mouth daily. [facility] KCL 20 mEq tablet 2018-09 00:00: 00 Yes [id number] 40meq Take 2 tablets by mouth daily. [facility] KCL 20 mEq tablet 2018-09 00:00: 00 Yes [id number] 40meq Take 2 tablets by mouth daily. [facility] KCL 20 mEq tablet 2018-09 00:00: 00 11-28 00:00 :00 No [id number] 40meq Take 2 tablets by mouth daily. [facility] atorvastati n 20 mg tablet 2018-09 00:00: 00 12-12 00:00 :00 No [id number] 20mg Take 1 tablet by mouth at bedtime. [facility] metoprolol succinate XL 50 mg 24 hr tablet 2018-09 00:00: 00 12-12 00:00 :00 No [id number] 50mg Take 1 tablet by mouth 2 (two) times daily. [facility] furosemide 40 mg tablet 2018-09 00:00: 00 12-12 00:00 :00 No [id number] 40mg Take 1 tablet by mouth every morning and evening. [facility] ipratropium -albuterol (DUONEB) 0.5 mg-3 mg(2.5 mg base)/3 mL nebulizer solution 3 mL 05-04 13:00: 00 Yes 3mL 3 mL, Inhalation , QID, First dose on Tue05/04/19 at 0800, Until Discontinu ed, Routine [facility] ibuprofen 600 mg tablet 02-16 00:00: 00 Yes [id number] 600mg Take 1 tablet by mouth every 8 (eight) hours as needed (PAIN). [facility] ibuprofen 600 mg tablet 02-16 00:00: 00 Yes [id number] 600mg Take 1 tablet by mouth every 8 (eight) hours as needed (pain). [facility] ibuprofen 600 mg tablet 02-16 00:00: 00 05-03 00:00 :00 No [id number] 600mg Take 1 tablet by mouth every 8 (eight) hours as needed (PAIN). [facility] ibuprofen 600 mg tablet 02-16 00:00: 05-03 00:00 :00 No [id number] 600mg Take 1 tablet by mouth every 8 (eight) hours as needed (pain). [facility] magnesium oxide (MAG-OX 400) 400 mg tablet 11-11 00:00: 00 Yes 400mg Take 1 Tab by mouth 3 (three) times daily. [facility] enalapril (VASOTEC) 2.5 mg tablet 11-11 00:00: 00 Yes [id number] 2.5mg Take 1 Tab by mouth 2 (two) times daily. [facility] pantoprazol e (PROTONIX) 40 mg EC tablet 11-11 00:00: 00 Yes 40mg Take 1 Tab by mouth daily. [facility] KCL (KLOR-CON M20) 20 mEq tablet 11-11 00:00: 00 Yes 20meq Take 1 Tab by mouth daily. [facility] furosemide (LASIX) 40 mg tablet 11-11 00:00: 00 Yes [id number] 40mg Take 1 Tab by mouth 2 (two) times daily. [facility] metoprolol succinate XL (TOPROL XL) 100 mg 24 hr tablet 11-11 00:00: 00 Yes 100mg Take 1 Tab by mouth daily. [facility] magnesium oxide (MAG-OX 400) 400 mg tablet 11-11 00:00: 00 05-03 00:00 :00 No 400mg Take 1 Tab by mouth 3 (three) times daily. [facility] enalapril (VASOTEC) 2.5 mg tablet 11-11 00:00: 05-03 00:00 :00 No [id number] 2.5mg Take 1 Tab by mouth 2 (two) times daily. [facility] pantoprazol e (PROTONIX) 40 mg EC tablet 11-11 00:00: 00 05-03 00:00 :00 No 40mg Take 1 Tab by mouth daily. [facility] KCL (KLOR-CON M20) 20 mEq tablet 11-11 00:00: 00 05-03 00:00 :00 No 20meq Take 1 Tab by mouth daily. [facility] furosemide (LASIX) 40 mg tablet 11-11 00:00: 00 05-03 00:00 :00 No [id number] 40mg Take 1 Tab by mouth 2 (two) times daily. [facility] metoprolol succinate XL (TOPROL XL) 100 mg 24 hr tablet 11-11 00:00: 00 05-03 00:00 :00 No 100mg Take 1 Tab by mouth daily. [facility] aspirin 81 mg chewable tablet 2013-09 00:00: 00 Yes 81mg Take 1 Tab by mouth daily. [facility] ipratropium (ATROVENT) 0.02 % nebulizer solution 2013-09 00:00: 00 Yes .5mg Inhale 2.5 mL 4 (four) times daily. [facility] levalbutero l (XOPENEX) 0.31 mg/3 mL nebulizer solution 2013-09 00:00: 00 Yes .31mg Inhale 0.31 mg 3 (three) times daily. [facility] aspirin 81 mg chewable tablet 2013-09 00:00: 00 Yes 81mg Take 1 Tab by mouth daily. [facility] ipratropium (ATROVENT) 0.02 % nebulizer solution 2013-09 00:00: 00 Yes .5mg Inhale 2.5 mL 4 (four) times daily. [facility] levalbutero l (XOPENEX) 0.31 mg/3 mL nebulizer solution 2013-09 00:00: 00 Yes .31mg Inhale 0.31 mg 3 (three) times daily. [facility] aspirin 81 mg chewable tablet 2013-09 00:00: 00 Yes 81mg Take 1 Tab by mouth daily. [facility] ipratropium (ATROVENT) 0.02 % nebulizer solution 2013-09 00:00: 00 Yes .5mg Inhale 2.5 mL 4 (four) times daily. [facility] levalbutero l (XOPENEX) 0.31 mg/3 mL nebulizer solution 2013-09 00:00: 00 Yes .31mg Inhale 0.31 mg 3 (three) times daily. [facility] aspirin 81 mg chewable tablet 2013-09 00:00: 00 Yes 81mg Take 1 Tab by mouth daily. [facility] 0.02 % nebulizer solution 2013-09 00:00: 00 Yes .5mg Inhale 2.5 mL 4 (four) times daily. [facility] levalbutero l (XOPENEX) 0.31 mg/3 mL nebulizer solution 2013-09 00:00: 00 Yes .31mg Inhale 0.31 mg 3 (three) times daily. [facility] aspirin 81 mg chewable tablet 2013-09 00:00: 00 Yes 81mg Take 1 Tab by mouth daily. [facility] ipratropium (ATROVENT) 0.02 % nebulizer solution 2013-09 00:00: 00 Yes .5mg Inhale 2.5 mL 4 (four) times daily. [facility] levalbutero l (XOPENEX) 0.31 mg/3 mL nebulizer solution 2013-09 00:00: 00 Yes .31mg Inhale 0.31 mg 3 (three) times daily. [facility] aspirin 81 mg chewable tablet 2013-09 00:00: 00 Yes 81mg Take 1 Tab by mouth daily. [facility] ipratropium (ATROVENT) 0.02 % nebulizer solution 2013-09 00:00: 00 Yes .5mg Inhale 2.5 mL 4 (four) times daily. [facility] levalbutero l (XOPENEX) 0.31 mg/3 mL nebulizer solution 2013-09 00:00: 00 Yes .31mg Inhale 0.31 mg 3 (three) times daily. [facility] mg che[facility]able tablet 2013-09 00:00: 00 Yes 81mg Take 1 Tab by mouth daily. [facility] (ATROVENT) 0.02 % nebulizer solution 2013-09 00:00: 00 Yes .5mg Inhale 2.5 mL 4 (four) times daily. [facility] (XOPENEX) 0.31 mg/3 mL nebulizer solution 2013-09 00:00: 00 Yes .31mg Inhale 0.31 mg 3 (three) times daily. [facility] aspirin 81 mg chewable tablet 2013-09 00:00: 00 Yes 81mg Take 1 Tab by mouth daily. [facility] ipratropium (ATROVENT) 0.02 % nebulizer solution 2013-09 00:00: 00 Yes .5mg Inhale 2.5 mL 4 (four) times daily. [facility] levalbutero l (XOPENEX) 0.31 mg/3 mL nebulizer solution 2013-09 00:00: 00 Yes .31mg Inhale 0.31 mg 3 (three) times daily. [facility] aspirin 81 mg chewable tablet 2013-09 00:00: 00 Yes 81mg Take 1 Tab by mouth daily. [facility] ipratropium (ATROVENT) 0.02 % nebulizer solution 2013-09 00:00: 00 Yes .5mg Inhale 2.5 mL 4 (four) times daily. [facility] (XOPENEX) 0.31 mg/3 mL nebulizer solution 2013-09 00:00: 00 Yes .31mg Inhale 0.31 mg 3 (three) times daily. [facility] aspirin 81 mg chewable tablet 2013-09 00:00: 00 Yes 81mg Take 1 Tab by mouth daily. [facility] ipratropium (ATROVENT) 0.02 % nebulizer solution 2013-09 00:00: 00 Yes .5mg Inhale 2.5 mL 4 (four) times daily. [facility] levalbutero l (XOPENEX) 0.31 mg/3 mL nebulizer solution 2013-09 00:00: 00 Yes .31mg Inhale 0.31 mg 3 (three) times daily. [facility] aspirin 81 mg chewable tablet 2013-09 00:00: 00 Yes 81mg Take 1 Tab by mouth daily. [facility] ipratropium (ATROVENT) 0.02 % nebulizer solution 2013-09 00:00: 00 Yes .5mg Inhale 2.5 mL 4 (four) times daily. [facility] levalbutero l (XOPENEX) 0.31 mg/3 mL nebulizer solution 2013-09 00:00: 00 Yes .31mg Inhale 0.31 mg 3 (three) times daily. [facility] aspirin 81 mg chewable tablet 2013-09 00:00: 00 Yes 81mg Take 1 Tab by mouth daily. [facility] ipratropium (ATROVENT) 0.02 % nebulizer solution 2013-09 00:00: 00 Yes .5mg Inhale 2.5 mL 4 (four) times daily. [facility] levalbutero l (XOPENEX) 0.31 mg/3 mL nebulizer solution 2013-09 00:00: 00 Yes .31mg Inhale 0.31 mg 3 (three) times daily. [facility] aspirin 81 mg chewable tablet 2013-09 00:00: 00 Yes 81mg Take 1 Tab by mouth daily. [facility] ipratropium (ATROVENT) 0.02 % nebulizer solution 2013-09 00:00: 00 Yes .5mg Inhale 2.5 mL 4 (four) times daily. [facility] levalbutero l (XOPENEX) 0.31 mg/3 mL nebulizer solution 2013-09 00:00: 00 Yes .31mg Inhale 0.31 mg 3 (three) times daily. [facility] mg chewable tablet 2013-09 00:00: 00 Yes 81mg Take 1 Tab by mouth daily. [facility] ipratropium (ATROVENT) 0.02 % nebulizer solution 2013-09 00:00: 00 Yes .5mg Inhale 2.5 mL 4 (four) times daily. [facility] levalbutero l (XOPENEX) 0.31 mg/3 mL nebulizer solution 2013-09 00:00: 00 Yes .31mg Inhale 0.31 mg 3 (three) times daily. [facility] aspirin 81 mg chewable tablet 2013-09 00:00: 00 Yes 81mg Take 1 Tab by mouth daily. [facility] (ATROVENT) 0.02 % nebulizer solution 2013-09 00:00: 00 Yes .5mg Inhale 2.5 mL 4 (four) times daily. [facility] (XOPENEX) 0.31 mg/3 mL nebulizer solution 2013-09 00:00: 00 Yes .31mg Inhale 0.31 mg 3 (three) times daily. [facility] aspirin 81 mg chewable tablet 2013-09 00:00: 00 Yes 81mg Take 1 Tab by mouth daily. [facility] (ATROVENT) 0.02 % nebulizer solution 2013-09 00:00: 00 Yes .5mg Inhale 2.5 mL 4 (four) times daily. [facility]val[facility] (XOPENEX) 0.31 mg/3 mL nebulizer solution 2013-09 00:00: 00 Yes .31mg Inhale 0.31 mg 3 (three) times daily. [facility] 81 mg chewable tablet 2013-09 00:00: 00 Yes 81mg Take 1 Tab by mouth daily. [facility] ipratropium (ATROVENT) 0.02 % nebulizer solution 2013-09 00:00: 00 Yes .5mg Inhale 2.5 mL 4 (four) times daily. [facility] levalbutero l (XOPENEX) 0.31 mg/3 mL nebulizer solution 2013-09 00:00: 00 Yes .31mg Inhale 0.31 mg 3 (three) times daily. [facility] aspirin 81 mg chewable tablet 2013-09 00:00: 00 Yes 81mg Take 1 Tab by mouth daily. [facility] ipratropium (ATROVENT) 0.02 % nebulizer solution 2013-09 00:00: 00 Yes .5mg Inhale 2.5 mL 4 (four) times daily. [facility] levalbutero l (XOPENEX) 0.31 mg/3 mL nebulizer solution 2013-09 00:00: 00 Yes .31mg Inhale 0.31 mg 3 (three) times daily. [facility] aspirin 81 mg chewable tablet 2013-09 00:00: 00 Yes 81mg Take 1 Tab by mouth daily. [facility] ipratropium (ATROVENT) 0.02 % nebulizer solution 2013-09 00:00: 00 Yes .5mg Inhale 2.5 mL 4 (four) times daily. [facility] levalbutero l (XOPENEX) 0.31 mg/3 mL nebulizer solution 2013-09 00:00: 00 Yes .31mg Inhale 0.31 mg 3 (three) times daily. [facility] aspirin 81 mg chewable tablet 2013-09 00:00: 00 Yes 81mg Take 1 Tab by mouth daily. [facility] (ATROVENT) 0.02 % nebulizer solution 2013-09 00:00: 00 Yes .5mg Inhale 2.5 mL 4 (four) times daily. [facility] levalbutero l (XOPENEX) 0.31 mg/3 mL nebulizer solution 2013-09 00:00: 00 Yes .31mg Inhale 0.31 mg 3 (three) times daily. [facility] aspirin 81 mg chewable tablet 2013-09 00:00: 00 Yes 81mg Take 1 Tab by mouth daily. [facility] ipratropium (ATROVENT) 0.02 % nebulizer solution 2013-09 00:00: 00 Yes .5mg Inhale 2.5 mL 4 (four) times daily. [facility] levalbutero l (XOPENEX) 0.31 mg/3 mL nebulizer solution 2013-09 00:00: 00 Yes .31mg Inhale 0.31 mg 3 (three) times daily. [facility] mg chewable tablet 2013-09 00:00: 00 Yes 81mg Take 1 Tab by mouth daily. [facility]ratropium (ATROVENT) 0.02 % nebulizer solution 2013-09 00:00: 00 Yes .5mg Inhale 2.5 mL 4 (four) times daily. [facility] levalbutero l (XOPENEX) 0.31 mg/3 mL nebulizer solution 2013-09 00:00: 00 Yes .31mg Inhale 0.31 mg 3 (three) times daily. [facility] aspirin 81 mg chewable tablet 2013-09 00:00: 00 Yes 81mg Take 1 Tab by mouth daily. [facility] (ATROVENT) 0.02 % nebulizer solution 2013-09 00:00: 00 Yes .5mg Inhale 2.5 mL 4 (four) times daily. [facility] levalbutero l (XOPENEX) 0.31 mg/3 mL nebulizer solution 2013-09 00:00: 00 Yes .31mg Inhale 0.31 mg 3 (three) times daily. [facility] 81 mg chewable tablet 2013-09 00:00: 00 Yes 81mg Take 1 Tab by mouth daily. [facility] (ATROVENT) 0.02 % nebulizer solution 2013-09 00:00: 00 Yes .5mg Inhale 2.5 mL 4 (four) times daily. [facility] levalbutero l (XOPENEX) 0.31 mg/3 mL nebulizer solution 2013-09 00:00: 00 Yes .31mg Inhale 0.31 mg 3 (three) times daily. [facility] aspirin 81 mg chewable tablet 2013-09 00:00: 00 Yes 81mg Take 1 Tab by mouth daily. [facility] ipratropium (ATROVENT) 0.02 % nebulizer solution 2013-09 00:00: 00 Yes .5mg Inhale 2.5 mL 4 (four) times daily. [facility] levalbutero l (XOPENEX) 0.31 mg/3 mL nebulizer solution 2013-09 00:00: 00 Yes .31mg Inhale 0.31 mg 3 (three) times daily. [facility] aspirin 81 mg chewable tablet 2013-09 00:00: 00 Yes 81mg Take 1 Tab by mouth daily. [facility] ipratropium (ATROVENT) 0.02 % nebulizer solution 2013-09 00:00: 00 Yes .5mg Inhale 2.5 mL 4 (four) times daily. [facility] levalbutero l (XOPENEX) 0.31 mg/3 mL nebulizer solution 2013-09 00:00: 00 Yes .31mg Inhale 0.31 mg 3 (three) times daily. [facility] aspirin 81 mg chewable tablet 2013-09 00:00: 00 Yes 81mg Take 1 Tab by mouth daily. [facility] ipratropium (ATROVENT) 0.02 % nebulizer solution 2013-09 00:00: 00 Yes .5mg Inhale 2.5 mL 4 (four) times daily. [facility] levalbutero l (XOPENEX) 0.31 mg/3 mL nebulizer solution 2013-09 00:00: 00 Yes .31mg Inhale 0.31 mg 3 (three) times daily. [facility] aspirin 81 mg chewable tablet 2013-09 00:00: 00 Yes 81mg Take 1 Tab by mouth daily. [facility] ipratropium (ATROVENT) 0.02 % nebulizer solution 2013-09 00:00: 00 Yes .5mg Inhale 2.5 mL 4 (four) times daily. [facility] levalbutero l (XOPENEX) 0.31 mg/3 mL nebulizer solution 2013-09 00:00: 00 Yes .31mg Inhale 0.31 mg 3 (three) times daily. [facility] aspirin 81 mg chewable tablet 2013-09 00:00: 00 11-28 00:00 :00 No 81mg Take 1 Tab by mouth daily. [facility] ipratropium (ATROVENT) 0.02 % nebulizer solution 2013-09 00:00: 00 11-28 00:00 :00 No .5mg Inhale 2.5 mL 4 (four) times daily. [facility] levalbutero l (XOPENEX) 0.31 mg/3 mL nebulizer solution 2013-09 00:00: 00 11-28 00:00 :00 No .31mg Inhale 0.31 mg 3 (three) times daily. [facility] Immunizations Ordered Immunization Name Filled Immunization Name Date Status Comments Source Pneumococcal 20 Conjugate, PCV20 (Prevnar 20) 2022-12-12 00:00:00 Completed [facility] Pneumococcal 20 Conjugate, PCV20 (Prevnar 20) 2022-12-12 00:00:00 Completed [facility] Pneumococcal 20 Conjugate, PCV20 (Prevnar 20) 2022-12-12 00:00:00 Completed [facility] Pneumococcal 20 Conjugate, PCV20 (Prevnar 20) 2022-12-12 00:00:00 Completed [facility] Pneumococcal 20 Conjugate, PCV20 (Prevnar 20) 2022-12-12 00:00:00 Completed [facility] Pneumococcal 20 Conjugate, PCV20 (Prevnar 20) 2022-12-12 00:00:00 Completed [facility] Pneumococcal 20 Conjugate, PCV20 (Prevnar 20) 2022-12-12 00:00:00 Completed [facility] Pneumococcal 20 Conjugate, PCV20 (Prevnar 20) 2022-12-12 00:00:00 Completed [facility] Pneumococcal 20 Conjugate, PCV20 (Prevnar 20) 2022-12-12 00:00:00 Completed [facility] Pneumococcal 20 Conjugate, PCV20 (Prevnar 20) 2022-12-12 00:00:00 Completed [facility] Pneumococcal 20 Conjugate, PCV20 (Prevnar 20) 2022-12-12 00:00:00 Completed [facility] Pneumococcal 20 Conjugate, PCV20 (Prevnar 20) 2022-12-12 00:00:00 Completed [facility] Pneumococcal 20 Conjugate, PCV20 (Prevnar 20) 2022-12-12 00:00:00 Completed [facility] Pneumococcal 20 Conjugate, PCV20 (Prevnar 20) 2022-12-12 00:00:00 Completed [facility] Pneumococcal 20 Conjugate, PCV20 (Prevnar 20) 2022-12-12 00:00:00 Completed [facility] Pneumococcal 20 Conjugate, PCV20 (Prevnar 20) 2022-12-12 00:00:00 Completed [facility] Pneumococcal 20 Conjugate, PCV20 (Prevnar 20) 2022-12-12 00:00:00 Completed [facility] Pneumococcal 20 Conjugate, PCV20 (Prevnar 20) 2022-12-12 00:00:00 Completed [facility] Pneumococcal 20 Conjugate, PCV20 (Prevnar 20) 2022-12-12 00:00:00 Completed [facility] Pneumococcal 20 Conjugate, PCV20 (Prevnar 20) 2022-12-12 00:00:00 Completed [facility] Pneumococcal 20 Conjugate, PCV20 (Prevnar 20) 2022-12-12 00:00:00 Completed [facility] Pneumococcal 20 Conjugate, PCV20 (Prevnar 20) 2022-12-12 00:00:00 Completed [facility] Pneumococcal 20 Conjugate, PCV20 (Prevnar 20) 2022-12-12 00:00:00 Completed [facility] Pneumococcal 20 Conjugate, PCV20 (Prevnar 20) 2022-12-12 00:00:00 Completed [facility] Pneumococcal 20 Conjugate, PCV20 (Prevnar 20) 2022-12-12 00:00:00 Completed [facility] Pneumococcal 20 Conjugate, PCV20 (Prevnar 20) 2022-12-12 00:00:00 Completed [facility] Pneumococcal 20 Conjugate, PCV20 (Prevnar 20) 2022-12-12 00:00:00 Completed [facility] Pneumococcal 20 Conjugate, PCV20 (Prevnar 20) 2022-12-12 00:00:00 Completed [facility] Pneumococcal 20 Conjugate, PCV20 (Prevnar 20) 2022-12-12 00:00:00 Completed [facility] Pneumococcal 20 Conjugate, PCV20 (Prevnar 20) 2022-12-12 00:00:00 Completed [facility] Pneumococcal 20 Conjugate, PCV20 (Prevnar 20) 2022-12-12 00:00:00 Completed [facility] Pneumococcal 20 Conjugate, PCV20 (Prevnar 20) 2022-12-12 00:00:00 Completed [facility] Pneumococcal 20 Conjugate, PCV20 (Prevnar 20) 2022-12-12 00:00:00 Completed [facility] Pneumococcal 20 Conjugate, PCV20 (Prevnar 20) 2022-12-12 00:00:00 Completed [facility] Pneumococcal 20 Conjugate, PCV20 (Prevnar 20) 2022-12-12 00:00:00 Completed [facility] Pneumococcal 20 Conjugate, PCV20 (Prevnar 20) 2022-12-12 00:00:00 Completed [facility] SARS-COV-2 COVID-19 MODERNA 12+ YRS VACCINE 2020-11-23 00:00:00 Completed [facility] SARS-COV-2 COVID-19 MODERNA VACCINE 2020-11-23 00:00:00 Completed [facility] SARS-COV-2 COVID-19 MODERNA 12+ YRS VACCINE 2020-11-23 00:00:00 Completed [facility] SARS-COV-2 COVID-19 MODERNA 12+ YRS VACCINE 2020-11-23 00:00:00 Completed [facility] SARS-COV-2 COVID-19 MODERNA 12+ YRS VACCINE 2020-11-23 00:00:00 Completed [facility] SARS-COV-2 COVID-19 MODERNA 12+ YRS VACCINE 2020-11-23 00:00:00 Completed [facility] SARS-COV-2 COVID-19 MODERNA 12+ YRS VACCINE 2020-11-23 00:00:00 Completed [facility] SARS-COV-2 COVID-19 MODERNA VACCINE 2020-11-23 00:00:00 Completed [facility] SARS-COV-2 COVID-19 MODERNA 12+ YRS VACCINE 2020-11-23 00:00:00 Completed [facility] SARS-COV-2 COVID-19 MODERNA 12+ YRS VACCINE 2020-11-23 00:00:00 Completed [facility] SARS-COV-2 COVID-19 MODERNA 12+ YRS VACCINE 2020-11-23 00:00:00 Completed [facility] SARS-COV-2 COVID-19 MODERNA 12+ YRS VACCINE 2020-11-23 00:00:00 Completed [facility] SARS-COV-2 COVID-19 MODERNA 12+ YRS VACCINE 2020-11-23 00:00:00 Completed [facility] SARS-COV-2 COVID-19 MODERNA 12+ YRS VACCINE 2020-11-23 00:00:00 Completed [facility] SARS-COV-2 COVID-19 MODERNA VACCINE 2020-11-23 00:00:00 Completed [facility] SARS-COV-2 COVID-19 MODERNA 12+ YRS VACCINE 2020-11-23 00:00:00 Completed [facility] SARS-COV-2 COVID-19 MODERNA 12+ YRS VACCINE 2020-11-23 00:00:00 Completed [facility] SARS-COV-2 COVID-19 MODERNA 12+ YRS VACCINE 2020-11-23 00:00:00 Completed [facility] SARS-COV-2 COVID-19 MODERNA 12+ YRS VACCINE 2020-11-23 00:00:00 Completed [facility] SARS-COV-2 COVID-19 MODERNA 12+ YRS VACCINE 2020-11-23 00:00:00 Completed [facility] SARS-COV-2 COVID-19 MODERNA 12+ YRS VACCINE 2020-11-23 00:00:00 Completed [facility] SARS-COV-2 COVID-19 MODERNA 12+ YRS VACCINE 2020-11-23 00:00:00 Completed [facility] SARS-COV-2 COVID-19 MODERNA 12+ YRS VACCINE 2020-11-23 00:00:00 Completed [facility] SARS-COV-2 COVID-19 MODERNA 12+ YRS VACCINE 2020-11-23 00:00:00 Completed [facility] SARS-COV-2 COVID-19 MODERNA 12+ YRS VACCINE 2020-11-23 00:00:00 Completed [facility] SARS-COV-2 COVID-19 MODERNA 12+ YRS VACCINE 2020-11-23 00:00:00 Completed [facility] SARS-COV-2 COVID-19 MODERNA 12+ YRS VACCINE 2020-11-23 00:00:00 Completed [facility] SARS-COV-2 COVID-19 MODERNA 12+ YRS VACCINE 2020-11-23 00:00:00 Completed [facility] SARS-COV-2 COVID-19 MODERNA 12+ YRS VACCINE 2020-11-23 00:00:00 Completed [facility] SARS-COV-2 COVID-19 MODERNA 12+ YRS VACCINE 2020-11-23 00:00:00 Completed [facility] SARS-COV-2 COVID-19 MODERNA 12+ YRS VACCINE 2020-11-23 00:00:00 Completed [facility] SARS-COV-2 COVID-19 MODERNA 12+ YRS VACCINE 2020-11-23 00:00:00 Completed [facility] SARS-COV-2 COVID-19 MODERNA 12+ YRS VACCINE 2020-11-23 00:00:00 Completed [facility] SARS-COV-2 COVID-19 MODERNA 12+ YRS VACCINE 2020-11-23 00:00:00 Completed [facility] SARS-COV-2 COVID-19 MODERNA VACCINE 2020-11-23 00:00:00 Completed [facility] SARS-COV-2 COVID-19 MODERNA 12+ YRS VACCINE 2020-11-23 00:00:00 Completed [facility] SARS-COV-2 COVID-19 MODERNA 12+ YRS VACCINE 2020-11-23 00:00:00 Completed [facility] SARS-COV-2 COVID-19 MODERNA 12+ YRS VACCINE 2020-11-23 00:00:00 Completed [facility] SARS-COV-2 COVID-19 MODERNA 12+ YRS VACCINE 2020-11-23 00:00:00 Completed [facility] SARS-COV-2 COVID-19 MODERNA 12+ YRS VACCINE 2020-11-23 00:00:00 Completed [facility] SARS-COV-2 COVID-19 MODERNA VACCINE 2020-11-23 00:00:00 Completed [facility] SARS-COV-2 COVID-19 MODERNA 12+ YRS VACCINE 2020-11-23 00:00:00 Completed [facility] SARS-COV-2 COVID-19 MODERNA 12+ YRS VACCINE 2020-11-23 00:00:00 Completed [facility] SARS-COV-2 COVID-19 MODERNA 12+ YRS VACCINE 2020-11-23 00:00:00 Completed [facility] SARS-COV-2 COVID-19 MODERNA 12+ YRS VACCINE 2020-11-23 00:00:00 Completed [facility] SARS-COV-2 COVID-19 MODERNA 12+ YRS VACCINE 2020-11-23 00:00:00 Completed [facility] SARS-COV-2 COVID-19 MODERNA VACCINE 2020-11-23 00:00:00 Completed [facility] SARS-COV-2 COVID-19 MODERNA VACCINE 2020-11-23 00:00:00 Completed [facility] SARS-COV-2 COVID-19 MODERNA VACCINE 2020-11-23 00:00:00 Completed [facility] SARS-COV-2 COVID-19 MODERNA VACCINE 2020-11-23 00:00:00 Completed [facility] SARS-COV-2 COVID-19 MODERNA VACCINE 2020-11-23 00:00:00 Completed [facility] SARS-COV-2 COVID-19 MODERNA VACCINE 2020-11-23 00:00:00 Completed [facility] SARS-COV-2 COVID-19 MODERNA VACCINE 2020-11-23 00:00:00 Completed [facility] SARS-COV-2 COVID-19 MODERNA VACCINE 2020-11-23 00:00:00 Completed [facility] SARS-COV-2 COVID-19 MODERNA VACCINE 2020-11-23 00:00:00 Completed [facility] SARS-COV-2 COVID-19 MODERNA VACCINE 2020-11-23 00:00:00 Completed [facility] SARS-COV-2 COVID-19 MODERNA VACCINE 2020-11-23 00:00:00 Completed [facility] SARS-COV-2 COVID-19 MODERNA VACCINE 2020-11-23 00:00:00 Completed [facility] SARS-COV-2 COVID-19 MODERNA VACCINE 2020-11-23 00:00:00 Completed [facility] SARS-COV-2 COVID-19 MODERNA VACCINE 2020-11-23 00:00:00 Completed [facility] SARS-COV-2 COVID-19 MODERNA 12+ YRS VACCINE 2020-11-23 00:00:00 Completed [facility] SARS-COV-2 COVID-19 MODERNA 12+ YRS VACCINE 2020-11-23 00:00:00 Completed [facility] SARS-COV-2 COVID-19 MODERNA 12+ YRS VACCINE 2020-11-23 00:00:00 Completed [facility] SARS-COV-2 COVID-19 MODERNA 12+ YRS VACCINE 2020-11-23 00:00:00 Completed [facility] SARS-COV-2 COVID-19 MODERNA VACCINE 2020-11-23 00:00:00 Completed [facility] SARS-COV-2 COVID-19 MODERNA 12+ YRS VACCINE 2020-11-23 00:00:00 Completed [facility] SARS-COV-2 COVID-19 MODERNA 12+ YRS VACCINE 2020-11-23 00:00:00 Completed [facility] SARS-COV-2 COVID-19 MODERNA 12+ YRS VACCINE 2020-11-23 00:00:00 Completed [facility] SARS-COV-2 COVID-19 MODERNA VACCINE 2020-10-26 00:00:00 Completed [facility] SARS-COV-2 COVID-19 MODERNA 12+ YRS VACCINE 2020-10-26 00:00:00 Completed [facility] SARS-COV-2 COVID-19 MODERNA 12+ YRS VACCINE 2020-10-26 00:00:00 Completed [facility] SARS-COV-2 COVID-19 MODERNA 12+ YRS VACCINE 2020-10-26 00:00:00 Completed [facility] SARS-COV-2 COVID-19 MODERNA 12+ YRS VACCINE 2020-10-26 00:00:00 Completed [facility] SARS-COV-2 COVID-19 MODERNA 12+ YRS VACCINE 2020-10-26 00:00:00 Completed [facility] SARS-COV-2 COVID-19 MODERNA VACCINE 2020-10-26 00:00:00 Completed [facility] SARS-COV-2 COVID-19 MODERNA 12+ YRS VACCINE 2020-10-26 00:00:00 Completed [facility] SARS-COV-2 COVID-19 MODERNA 12+ YRS VACCINE 2020-10-26 00:00:00 Completed [facility] SARS-COV-2 COVID-19 MODERNA 12+ YRS VACCINE 2020-10-26 00:00:00 Completed [facility] SARS-COV-2 COVID-19 MODERNA 12+ YRS VACCINE 2020-10-26 00:00:00 Completed [facility] SARS-COV-2 COVID-19 MODERNA 12+ YRS VACCINE 2020-10-26 00:00:00 Completed [facility] SARS-COV-2 COVID-19 MODERNA 12+ YRS VACCINE 2020-10-26 00:00:00 Completed [facility] SARS-COV-2 COVID-19 MODERNA 12+ YRS VACCINE 2020-10-26 00:00:00 Completed [facility] SARS-COV-2 COVID-19 MODERNA VACCINE 2020-10-26 00:00:00 Completed [facility] SARS-COV-2 COVID-19 MODERNA 12+ YRS VACCINE 2020-10-26 00:00:00 Completed [facility] SARS-COV-2 COVID-19 MODERNA 12+ YRS VACCINE 2020-10-26 00:00:00 Completed [facility] SARS-COV-2 COVID-19 MODERNA 12+ YRS VACCINE 2020-10-26 00:00:00 Completed [facility] SARS-COV-2 COVID-19 MODERNA 12+ YRS VACCINE 2020-10-26 00:00:00 Completed [facility] SARS-COV-2 COVID-19 MODERNA 12+ YRS VACCINE 2020-10-26 00:00:00 Completed [facility] SARS-COV-2 COVID-19 MODERNA 12+ YRS VACCINE 2020-10-26 00:00:00 Completed [facility] SARS-COV-2 COVID-19 MODERNA 12+ YRS VACCINE 2020-10-26 00:00:00 Completed [facility] SARS-COV-2 COVID-19 MODERNA 12+ YRS VACCINE 2020-10-26 00:00:00 Completed [facility] SARS-COV-2 COVID-19 MODERNA 12+ YRS VACCINE 2020-10-26 00:00:00 Completed [facility] SARS-COV-2 COVID-19 MODERNA 12+ YRS VACCINE 2020-10-26 00:00:00 Completed [facility] SARS-COV-2 COVID-19 MODERNA 12+ YRS VACCINE 2020-10-26 00:00:00 Completed [facility] SARS-COV-2 COVID-19 MODERNA 12+ YRS VACCINE 2020-10-26 00:00:00 Completed [facility] SARS-COV-2 COVID-19 MODERNA 12+ YRS VACCINE 2020-10-26 00:00:00 Completed [facility] SARS-COV-2 COVID-19 MODERNA 12+ YRS VACCINE 2020-10-26 00:00:00 Completed [facility] SARS-COV-2 COVID-19 MODERNA 12+ YRS VACCINE 2020-10-26 00:00:00 Completed [facility] SARS-COV-2 COVID-19 MODERNA 12+ YRS VACCINE 2020-10-26 00:00:00 Completed [facility] SARS-COV-2 COVID-19 MODERNA 12+ YRS VACCINE 2020-10-26 00:00:00 Completed [facility] SARS-COV-2 COVID-19 MODERNA 12+ YRS VACCINE 2020-10-26 00:00:00 Completed [facility] SARS-COV-2 COVID-19 MODERNA 12+ YRS VACCINE 2020-10-26 00:00:00 Completed [facility] SARS-COV-2 COVID-19 MODERNA VACCINE 2020-10-26 00:00:00 Completed [facility] SARS-COV-2 COVID-19 MODERNA 12+ YRS VACCINE 2020-10-26 00:00:00 Completed [facility] SARS-COV-2 COVID-19 MODERNA 12+ YRS VACCINE 2020-10-26 00:00:00 Completed [facility] SARS-COV-2 COVID-19 MODERNA 12+ YRS VACCINE 2020-10-26 00:00:00 Completed [facility] SARS-COV-2 COVID-19 MODERNA 12+ YRS VACCINE 2020-10-26 00:00:00 Completed [facility] SARS-COV-2 COVID-19 MODERNA 12+ YRS VACCINE 2020-10-26 00:00:00 Completed [facility] SARS-COV-2 COVID-19 MODERNA VACCINE 2020-10-26 00:00:00 Completed [facility] SARS-COV-2 COVID-19 MODERNA 12+ YRS VACCINE 2020-10-26 00:00:00 Completed [facility] SARS-COV-2 COVID-19 MODERNA 12+ YRS VACCINE 2020-10-26 00:00:00 Completed [facility] SARS-COV-2 COVID-19 MODERNA 12+ YRS VACCINE 2020-10-26 00:00:00 Completed [facility] SARS-COV-2 COVID-19 MODERNA 12+ YRS VACCINE 2020-10-26 00:00:00 Completed [facility] SARS-COV-2 COVID-19 MODERNA 12+ YRS VACCINE 2020-10-26 00:00:00 Completed [facility] SARS-COV-2 COVID-19 MODERNA VACCINE 2020-10-26 00:00:00 Completed [facility] SARS-COV-2 COVID-19 MODERNA VACCINE 2020-10-26 00:00:00 Completed [facility] SARS-COV-2 COVID-19 MODERNA VACCINE 2020-10-26 00:00:00 Completed [facility] SARS-COV-2 COVID-19 MODERNA VACCINE 2020-10-26 00:00:00 Completed [facility] SARS-COV-2 COVID-19 MODERNA VACCINE 2020-10-26 00:00:00 Completed [facility] SARS-COV-2 COVID-19 MODERNA VACCINE 2020-10-26 00:00:00 Completed [facility] SARS-COV-2 COVID-19 MODERNA VACCINE 2020-10-26 00:00:00 Completed [facility] SARS-COV-2 COVID-19 MODERNA VACCINE 2020-10-26 00:00:00 Completed [facility] SARS-COV-2 COVID-19 MODERNA VACCINE 2020-10-26 00:00:00 Completed [facility] SARS-COV-2 COVID-19 MODERNA VACCINE 2020-10-26 00:00:00 Completed [facility] SARS-COV-2 COVID-19 MODERNA VACCINE 2020-10-26 00:00:00 Completed [facility] SARS-COV-2 COVID-19 MODERNA VACCINE 2020-10-26 00:00:00 Completed [facility] SARS-COV-2 COVID-19 MODERNA VACCINE 2020-10-26 00:00:00 Completed [facility] SARS-COV-2 COVID-19 MODERNA VACCINE 2020-10-26 00:00:00 Completed [facility] SARS-COV-2 COVID-19 MODERNA 12+ YRS VACCINE 2020-10-26 00:00:00 Completed [facility] SARS-COV-2 COVID-19 MODERNA 12+ YRS VACCINE 2020-10-26 00:00:00 Completed [facility] SARS-COV-2 COVID-19 MODERNA 12+ YRS VACCINE 2020-10-26 00:00:00 Completed [facility] SARS-COV-2 COVID-19 MODERNA 12+ YRS VACCINE 2020-10-26 00:00:00 Completed [facility] SARS-COV-2 COVID-19 MODERNA VACCINE 2020-10-26 00:00:00 Completed [facility] SARS-COV-2 COVID-19 MODERNA 12+ YRS VACCINE 2020-10-26 00:00:00 Completed [facility] SARS-COV-2 COVID-19 MODERNA 12+ YRS VACCINE 2020-10-26 00:00:00 Completed [facility] SARS-COV-2 COVID-19 MODERNA 12+ YRS VACCINE 2020-10-26 00:00:00 Completed [facility] Td 2019-02-16 00:00:00 Completed [facility] TD, NOS 2019-02-16 00:00:[address] [facility] TD, NOS 2019-02-16 00:00:[address] [facility] TD, NOS 2019-02-16 00:00:00 Completed [facility] TD, NOS 2019-02-16 00:00:[address] [facility] TD, NOS 2019-02-16 00:00:00 Completed [facility] Td 2019-02-16 00:00:00 Completed [facility] TD, NOS 2019-02-16 00:00:00 Completed [facility] TD, NOS 2019-02-16 00:00:00 Completed [facility] TD, NOS 2019-02-16 00:00:[address] [facility] TD, NOS 2019-02-16 00:00:00 Completed [facility] TD, NOS 2019-02-16 00:00:[address] [facility] TD, NOS 2019-02-16 00:00:[address] [facility] TD, NOS 2019-02-16 00:00:00 Completed [facility] Td 2019-02-16 00:00:[address] [facility] TD, NOS 2019-02-16 00:00:[address] [facility] TD, NOS 2019-02-16 00:00:[address] [facility] TD, NOS 2019-02-16 00:00:[address] [facility] TD, NOS 2019-02-16 00:00:[address] [facility] Td 2019-02-16 00:00:[address] [facility] TD, NOS 2019-02-16 00:00:[address] [facility] TD, NOS 2019-02-16 00:00:[address] [facility] TD, NOS 2019-02-16 00:00:00 Completed [facility] TD, NOS 2019-02-16 00:00:00 Completed [facility] Td 2019-02-16 00:00:00 Completed [facility] TD, NOS 2019-02-16 00:00:00 Completed [facility] TD, NOS 2019-02-16 00:00:[address] [facility] TD, NOS 2019-02-16 00:00:[address] [facility] TD, NOS 2019-02-16 00:00:[address] [facility] TD, NOS 2019-02-16 00:00:00 Completed [facility] TD, NOS 2019-02-16 00:00:[address] [facility] TD, NOS 2019-02-16 00:00:[address] [facility] Td 2019-02-16 00:00:[address] [facility] TD, NOS 2019-02-16 00:00:[address] [facility] TD, NOS 2019-02-16 00:00:00 Completed [facility] TD, NOS 2019-02-16 00:00:00 Completed [facility] TD, NOS 2019-02-16 00:00:[address] [facility] Td 2019-02-16 00:00:[address] [facility] TD, NOS 2019-02-16 00:00:[address] [facility] TD, NOS 2019-02-16 00:00:[address] [facility] TD, NOS 2019-02-16 00:00:00 Completed [facility] TD, NOS 2019-02-16 00:00:00 Completed [facility] Td 2019-02-16 00:00:00 Completed [facility] TD, NOS 2019-02-16 00:00:00 Completed [facility] TD, NOS 2019-02-16 00:00:00 Completed [facility] TD, NOS 2019-02-16 00:00:00 Completed [facility] TD, NOS 2019-02-16 00:00:00 Completed [facility] TD, NOS 2019-02-16 00:00:00 Completed [facility] TD, NOS 2019-02-16 00:00:00 Completed [facility] Td 2019-02-16 00:00:00 Completed [facility] Td 2019-02-16 00:00:00 Completed [facility] Td 2019-02-16 00:00:00 Completed [facility] Td 2019-02-16 00:00:00 Completed [facility] Td 2019-02-16 00:00:00 Completed [facility] Td 2019-02-16 00:00:00 Completed [facility] Td 2019-02-16 00:00:00 Completed [facility] Td 2019-02-16 00:00:00 Completed [facility] Td 2019-02-16 00:00:00 Completed [facility] Td 2019-02-16 00:00:00 Completed [facility] Td 2019-02-16 00:00:00 Completed [facility] Td 2019-02-16 00:00:00 Completed [facility] Td 2019-02-16 00:00:00 Completed [facility] Td 2019-02-16 00:00:00 Completed [facility] TD, NOS 2019-02-16 00:00:00 Completed [facility] TD, NOS 2019-02-16 00:00:00 Completed [facility] TD, NOS 2019-02-16 00:00:00 Completed [facility] TD, NOS 2019-02-16 00:00:00 Completed [facility] Td 2019-02-16 00:00:00 Completed [facility] TD, NOS 2019-02-16 00:00:00 Completed [facility] TD, NOS 2019-02-16 00:00:00 Completed [facility] TD, NOS 2019-02-16 00:00:00 Completed [facility] Pneumococcal Polysaccharide, PPSV23 (PNEUMOVAX) 2014-09-05 00:00:00 Completed [facility] Influenza Virus Vaccine Quad IM 3+ YRS 2014-09-05 00:00:00 Completed [facility] Pneumococcal Polysaccharide, PPSV23 (PNEUMOVAX) 2014-09-05 00:00:00 Completed [facility] Influenza Virus Vaccine Quad IM 3+ YRS 2014-09-05 00:00:00 Completed [facility] Pneumococcal Polysaccharide, PPSV23 (PNEUMOVAX) 2014-09-05 00:00:00 Completed [facility] Influenza Virus Vaccine Quad IM 3+ YRS 2014-09-05 00:00:00 Completed [facility] Pneumococcal Polysaccharide, PPSV23 (PNEUMOVAX) 2014-09-05 00:00:00 Completed [facility] Influenza Virus Vaccine Quad IM 3+ YRS 2014-09-05 00:00:00 Completed [facility] Pneumococcal Polysaccharide, PPSV23 (PNEUMOVAX) 2014-09-05 00:00:00 Completed [facility] Influenza Virus Vaccine Quad IM 3+ YRS 2014-09-05 00:00:00 Completed [facility] Pneumococcal Polysaccharide, PPSV23 (PNEUMOVAX) 2014-09-05 00:00:00 Completed [facility] Influenza Virus Vaccine Quad IM 3+ YRS 2014-09-05 00:00:00 Completed [facility] Pneumococcal Polysaccharide, PPSV23 (PNEUMOVAX) 2014-09-05 00:00:00 Completed [facility] Influenza Virus Vaccine Quad IM 3+ YRS 2014-09-05 00:00:00 Completed [facility] Pneumococcal Polysaccharide, PPSV23 (PNEUMOVAX) 2014-09-05 00:00:00 Completed [facility] Influenza Virus Vaccine Quad IM 3+ YRS 2014-09-05 00:00:00 Completed [facility] Pneumococcal Polysaccharide, PPSV23 (PNEUMOVAX) 2014-09-05 00:00:00 Completed [facility] Influenza Virus Vaccine Quad IM 3+ YRS 2014-09-05 00:00:00 Completed [facility] Pneumococcal Polysaccharide, PPSV23 (PNEUMOVAX) 2014-09-05 00:00:00 Completed [facility] Influenza Virus Vaccine Quad IM 3+ YRS 2014-09-05 00:00:00 Completed [facility] Pneumococcal Polysaccharide, PPSV23 (PNEUMOVAX) 2014-09-05 00:00:00 Completed [facility] Influenza Virus Vaccine Quad IM 3+ YRS 2014-09-05 00:00:00 Completed [facility] Pneumococcal Polysaccharide, PPSV23 (PNEUMOVAX) 2014-09-05 00:00:00 Completed [facility] Influenza Virus Vaccine Quad IM 3+ YRS 2014-09-05 00:00:00 Completed [facility] Pneumococcal Polysaccharide, PPSV23 (PNEUMOVAX) 2014-09-05 00:00:00 Completed [facility] Influenza Virus Vaccine Quad IM 3+ YRS 2014-09-05 00:00:00 Completed [facility] Influenza Virus Vaccine Quad IM 3+ YRS 2014-09-05 00:00:00 Completed [facility] Pneumococcal Polysaccharide, PPSV23 (PNEUMOVAX) 2014-09-05 00:00:00 Completed [facility] Pneumococcal Polysaccharide, PPSV23 (PNEUMOVAX) 2014-09-05 00:00:00 Completed [facility] Influenza Virus Vaccine Quad IM 3+ YRS 2014-09-05 00:00:00 Completed [facility] Pneumococcal Polysaccharide, PPSV23 (PNEUMOVAX) 2014-09-05 00:00:00 Completed [facility] Influenza Virus Vaccine Quad IM 3+ YRS 2014-09-05 00:00:00 Completed [facility] Pneumococcal Polysaccharide, PPSV23 (PNEUMOVAX) 2014-09-05 00:00:00 Completed [facility] Influenza Virus Vaccine Quad IM 3+ YRS 2014-09-05 00:00:00 Completed [facility] Pneumococcal Polysaccharide, PPSV23 (PNEUMOVAX) 2014-09-05 00:00:00 Completed [facility] Influenza Virus Vaccine Quad IM 3+ YRS 2014-09-05 00:00:00 Completed [facility] Pneumococcal Polysaccharide, PPSV23 (PNEUMOVAX) 2014-09-05 00:00:00 Completed [facility] Influenza Virus Vaccine Quad IM 3+ YRS 2014-09-05 00:00:00 Completed [facility] Pneumococcal Polysaccharide, PPSV23 (PNEUMOVAX) 2014-09-05 00:00:00 Completed [facility] Influenza Virus Vaccine Quad IM 3+ YRS 2014-09-05 00:00:00 Completed [facility] Pneumococcal Polysaccharide, PPSV23 (PNEUMOVAX) 2014-09-05 00:00:00 Completed [facility] Influenza Virus Vaccine Quad IM 3+ YRS 2014-09-05 00:00:00 Completed [facility] Pneumococcal Polysaccharide, PPSV23 (PNEUMOVAX) 2014-09-05 00:00:00 Completed [facility] Influenza Virus Vaccine Quad IM 3+ YRS 2014-09-05 00:00:00 Completed [facility] Pneumococcal Polysaccharide, PPSV23 (PNEUMOVAX) 2014-09-05 00:00:00 Completed [facility] Influenza Virus Vaccine Quad IM 3+ YRS 2014-09-05 00:00:00 Completed [facility] Pneumococcal Polysaccharide, PPSV23 (PNEUMOVAX) 2014-09-05 00:00:00 Completed [facility] Influenza Virus Vaccine Quad IM 3+ YRS 2014-09-05 00:00:00 Completed [facility] Pneumococcal Polysaccharide, PPSV23 (PNEUMOVAX) 2014-09-05 00:00:00 Completed [facility] Influenza Virus Vaccine Quad IM 3+ YRS 2014-09-05 00:00:00 Completed [facility] Pneumococcal Polysaccharide, PPSV23 (PNEUMOVAX) 2014-09-05 00:00:00 Completed [facility] Influenza Virus Vaccine Quad IM 3+ YRS 2014-09-05 00:00:00 Completed [facility] Pneumococcal Polysaccharide, PPSV23 (PNEUMOVAX) 2014-09-05 00:00:00 Completed [facility] Influenza Virus Vaccine Quad IM 3+ YRS 2014-09-05 00:00:00 Completed [facility] Pneumococcal Polysaccharide, PPSV23 (PNEUMOVAX) 2014-09-05 00:00:00 Completed [facility] Influenza Virus Vaccine Quad IM 3+ YRS 2014-09-05 00:00:00 Completed [facility] Pneumococcal Polysaccharide, PPSV23 (PNEUMOVAX) 2014-09-05 00:00:00 Completed [facility] Influenza Virus Vaccine Quad IM 3+ YRS 2014-09-05 00:00:00 Completed [facility] Pneumococcal Polysaccharide, PPSV23 (PNEUMOVAX) 2014-09-05 00:00:00 Completed [facility] Influenza Virus Vaccine Quad IM 3+ YRS 2014-09-05 00:00:00 Completed [facility] Pneumococcal Polysaccharide, PPSV23 (PNEUMOVAX) 2014-09-05 00:00:00 Completed [facility] Influenza Virus Vaccine Quad IM 3+ YRS 2014-09-05 00:00:00 Completed [facility] Influenza Virus Vaccine Quad IM 3+ YRS 2014-09-05 00:00:00 Completed [facility] Pneumococcal Polysaccharide, PPSV23 (PNEUMOVAX) 2014-09-05 00:00:00 Completed [facility] Pneumococcal Polysaccharide, PPSV23 (PNEUMOVAX) 2014-09-05 00:00:00 Completed [facility] Influenza Virus Vaccine Quad IM 3+ YRS 2014-09-05 00:00:00 Completed [facility] Pneumococcal Polysaccharide, PPSV23 (PNEUMOVAX) 2014-09-05 00:00:00 Completed [facility] Influenza Virus Vaccine Quad IM 3+ YRS 2014-09-05 00:00:00 Completed [facility] Pneumococcal Polysaccharide, PPSV23 (PNEUMOVAX) 2014-09-05 00:00:00 Completed [facility] Influenza Virus Vaccine Quad IM 3+ YRS 2014-09-05 00:00:00 Completed [facility] Pneumococcal Polysaccharide, PPSV23 (PNEUMOVAX) 2014-09-05 00:00:00 Completed [facility] Influenza Virus Vaccine Quad IM 3+ YRS 2014-09-05 00:00:00 Completed [facility] Pneumococcal Polysaccharide, PPSV23 (PNEUMOVAX) 2014-09-05 00:00:00 Completed [facility] Influenza Virus Vaccine Quad IM 3+ YRS 2014-09-05 00:00:00 Completed [facility] Pneumococcal Polysaccharide, PPSV23 (PNEUMOVAX) 2014-09-05 00:00:00 Completed [facility] Influenza Virus Vaccine Quad IM 3+ YRS 2014-09-05 00:00:00 Completed [facility] Pneumococcal Polysaccharide, PPSV23 (PNEUMOVAX) 2014-09-05 00:00:00 Completed [facility] Influenza Virus Vaccine Quad IM 3+ YRS 2014-09-05 00:00:00 Completed [facility] Pneumococcal Polysaccharide, PPSV23 (PNEUMOVAX) 2014-09-05 00:00:00 Completed [facility] Influenza Virus Vaccine Quad IM 3+ YRS 2014-09-05 00:00:00 Completed [facility] Pneumococcal Polysaccharide, PPSV23 (PNEUMOVAX) 2014-09-05 00:00:00 Completed [facility] Influenza Virus Vaccine Quad IM 3+ YRS 2014-09-05 00:00:00 Completed [facility] Pneumococcal Polysaccharide, PPSV23 (PNEUMOVAX) 2014-09-05 00:00:00 Completed [facility] Influenza Virus Vaccine Quad IM 3+ YRS 2014-09-05 00:00:00 Completed [facility] Pneumococcal Polysaccharide, PPSV23 (PNEUMOVAX) 2014-09-05 00:00:00 Completed [facility] Influenza Virus Vaccine Quad IM 3+ YRS 2014-09-05 00:00:00 Completed [facility] Pneumococcal Polysaccharide, PPSV23 (PNEUMOVAX) 2014-09-05 00:00:00 Completed [facility] Influenza Virus Vaccine Quad IM 3+ YRS 2014-09-05 00:00:00 Completed [facility] Pneumococcal Polysaccharide, PPSV23 (PNEUMOVAX) 2014-09-05 00:00:00 Completed [facility] Influenza Virus Vaccine Quad IM 3+ YRS 2014-09-05 00:00:00 Completed [facility] Pneumococcal Polysaccharide, PPSV23 (PNEUMOVAX) 2014-09-05 00:00:00 Completed [facility] Influenza Virus Vaccine Quad IM 3+ YRS 2014-09-05 00:00:00 Completed [facility] Pneumococcal Polysaccharide, PPSV23 (PNEUMOVAX) 2014-09-05 00:00:00 Completed [facility] Influenza Virus Vaccine Quad IM 3+ YRS 2014-09-05 00:00:00 Completed [facility] Pneumococcal Polysaccharide, PPSV23 (PNEUMOVAX) 2014-09-05 00:00:00 Completed [facility] Influenza Virus Vaccine Quad IM 3+ YRS 2014-09-05 00:00:00 Completed [facility] Pneumococcal Polysaccharide, PPSV23 (PNEUMOVAX) 2014-09-05 00:00:00 Completed [facility] Influenza Virus Vaccine Quad IM 3+ YRS 2014-09-05 00:00:00 Completed [facility] Pneumococcal Polysaccharide, PPSV23 (PNEUMOVAX) 2014-09-05 00:00:00 Completed [facility] Influenza Virus Vaccine Quad IM 3+ YRS 2014-09-05 00:00:00 Completed [facility] Pneumococcal Polysaccharide, PPSV23 (PNEUMOVAX) 2014-09-05 00:00:00 Completed [facility] Influenza Virus Vaccine Quad IM 3+ YRS 2014-09-05 00:00:00 Completed [facility] Pneumococcal Polysaccharide, PPSV23 (PNEUMOVAX) 2014-09-05 00:00:00 Completed [facility] Influenza Virus Vaccine Quad IM 3+ YRS 2014-09-05 00:00:00 Completed [facility] Pneumococcal Polysaccharide, PPSV23 (PNEUMOVAX) 2014-09-05 00:00:00 Completed [facility] Influenza Virus Vaccine Quad IM 3+ YRS 2014-09-05 00:00:00 Completed [facility] Pneumococcal Polysaccharide, PPSV23 (PNEUMOVAX) 2014-09-05 00:00:00 Completed [facility] Influenza Virus Vaccine Quad IM 3+ YRS 2014-09-05 00:00:00 Completed [facility] Pneumococcal Polysaccharide, PPSV23 (PNEUMOVAX) 2014-09-05 00:00:00 Completed [facility] Influenza Virus Vaccine Quad IM 3+ YRS 2014-09-05 00:00:00 Completed [facility] Pneumococcal Polysaccharide, PPSV23 (PNEUMOVAX) 2014-09-05 00:00:00 Completed [facility] Influenza Virus Vaccine Quad IM 3+ YRS 2014-09-05 00:00:00 Completed [facility] Pneumococcal Polysaccharide, PPSV23 (PNEUMOVAX) 2014-09-05 00:00:00 Completed [facility] Influenza Virus Vaccine Quad IM 3+ YRS 2014-09-05 00:00:00 Completed [facility] Pneumococcal Polysaccharide, PPSV23 (PNEUMOVAX) 2014-09-05 00:00:00 Completed [facility] Influenza Virus Vaccine Quad IM 3+ YRS 2014-09-05 00:00:00 Completed [facility] Pneumococcal Polysaccharide, PPSV23 (PNEUMOVAX) 2014-09-05 00:00:00 Completed [facility] Influenza Virus Vaccine Quad IM 3+ YRS 2014-09-05 00:00:00 Completed [facility] Pneumococcal Polysaccharide, PPSV23 (PNEUMOVAX) 2014-09-05 00:00:00 Completed [facility] Influenza Virus Vaccine Quad IM 3+ YRS 2014-09-05 00:00:00 Completed [facility] Pneumococcal Polysaccharide, PPSV23 (PNEUMOVAX) 2014-09-05 00:00:00 Completed [facility] Influenza Virus Vaccine Quad IM 3+ YRS 2014-09-05 00:00:00 Completed [facility] Pneumococcal Polysaccharide, PPSV23 (PNEUMOVAX) 2014-09-05 00:00:00 Completed [facility] Influenza Virus Vaccine Quad IM 3+ YRS 2014-09-05 00:00:00 Completed [facility] Pneumococcal Polysaccharide, PPSV23 (PNEUMOVAX) 2014-09-05 00:00:00 Completed [facility] Influenza Virus Vaccine Quad IM 3+ YRS 2014-09-05 00:00:00 Completed [facility] Pneumococcal Polysaccharide, PPSV23 (PNEUMOVAX) 2014-09-05 00:00:00 Completed [facility] Influenza Virus Vaccine Quad IM 3+ YRS 2014-09-05 00:00:00 Completed [facility] Pneumococcal Polysaccharide, PPSV23 (PNEUMOVAX) 2014-09-05 00:00:00 Completed [facility] Influenza Virus Vaccine Quad IM 3+ YRS 2014-09-05 00:00:00 Completed [facility] Pneumococcal Polysaccharide, PPSV23 (PNEUMOVAX) 2014-09-05 00:00:00 Completed [facility] Influenza Virus Vaccine Quad IM 3+ YRS 2014-09-05 00:00:00 Completed [facility] Influenza Virus Vaccine Quad IM 3+ YRS 2014-09-05 00:00:00 Completed [facility] Pneumococcal Polysaccharide, PPSV23 (PNEUMOVAX) 2014-09-05 00:00:00 Completed [facility] Pneumococcal Polysaccharide, PPSV23 (PNEUMOVAX) 2014-09-05 00:00:00 Completed [facility] Influenza Virus Vaccine Quad IM 3+ YRS 2014-09-05 00:00:00 Completed [facility] Pneumococcal Polysaccharide, PPSV23 (PNEUMOVAX) 2014-09-05 00:00:00 Completed [facility] Influenza Virus Vaccine Quad IM 3+ YRS 2014-09-05 00:00:00 Completed [facility] Pneumococcal Polysaccharide, PPSV23 (PNEUMOVAX) 2014-09-05 00:00:00 Completed [facility] Influenza Virus Vaccine Quad IM 3+ YRS 2014-09-05 00:00:00 Completed [facility] Pneumococcal Polysaccharide, PPSV23 (PNEUMOVAX) 2014-09-05 00:00:00 Completed [facility] Influenza Virus Vaccine Quad IM 3+ YRS 2014-09-05 00:00:00 Completed [facility] Influenza Virus Vaccine Quad IM 3+ YRS Unknown Completed [facility] Pneumococcal Polysaccharide, PPSV23 (PNEUMOVAX) Unknown [facility], NOS Unknown Completed [facility] SARS-COV-2 COVID-19 MODERNA 12+ YRS VACCINE Unknown Completed [facility] SARS-COV-2 COVID-19 MODERNA 12+ YRS VACCINE Unknown Completed [facility] Pneumococcal 20 Conjugate, PCV20 (Prevnar 20) Unknown Completed [facility] Influenza Virus Vaccine Quad IM 3+ YRS Unknown Completed [facility] Pneumococcal Polysaccharide, PPSV23 (PNEUMOVAX) Unknown Completed [facility], NOS Unknown Completed [facility] SARS-COV-2 COVID-19 MODERNA 12+ YRS VACCINE Unknown Completed [facility] SARS-COV-2 COVID-19 MODERNA 12+ YRS VACCINE Unknown Completed [facility] Pneumococcal 20 Conjugate, PCV20 (Prevnar 20) Unknown Completed [facility] Influenza Virus Vaccine Quad IM 3+ YRS Unknown Completed [facility] Pneumococcal Polysaccharide, PPSV23 (PNEUMOVAX) Unknown Completed [facility], NOS Unknown Completed [facility] SARS-COV-2 COVID-19 MODERNA 12+ YRS VACCINE Unknown Completed [facility] SARS-COV-2 COVID-19 MODERNA 12+ YRS VACCINE Unknown Completed [facility] Pneumococcal 20 Conjugate, PCV20 (Prevnar 20) Unknown Completed [facility] Vital Signs Vital Name Observation Time Observation Value Comments S ource Systolic blood pressure 2023-04-19 15:37:00 126 mm[Hg] [facility] Diastolic blood pressure 2023-04-19 15:37:00 83 mm[Hg] [facility] Heart rate 2023-04-19 15:37:00 94 /min [facility] Respiratory rate 2023-04-19 15:35:00 18 /min [facility] Body height 2023-04-19 15:35:00 177.8 cm [facility] Body weight 2023-04-19 15:35:00 59.138 kg [facility] BMI 2023-04-19 15:35:00 18.71 kg/m2 [facility] Oxygen saturation in Arterial blood by Pulse oximetry 2023-04-19 15:35:00 94 /min [facility] Systolic blood pressure 2023-03-01 20:27:00 143 mm[Hg] [facility] Diastolic blood pressure 2023-03-01 20:27:00 87 mm[Hg] [facility] Heart rate 2023-03-01 20:27:00 99 /min [facility] Body height 2023-03-01 20:27:00 177.8 cm [facility] Body weight 2023-03-01 20:27:00 57.153 kg [facility] BMI 2023-03-01 20:27:00 18.08 kg/m2 [facility] Oxygen saturation in Arterial blood by Pulse oximetry 2023-03-01 20:27:00 99 /min [facility] Systolic blood pressure 2023-02-18 16:17:00 144 mm[Hg] [facility] Diastolic blood pressure 2023-02-18 16:17:00 68 mm[Hg] [facility] Heart rate 2023-02-18 16:17:00 55 /min [facility] Body temperature 2023-02-18 16:17:00 36.06 Tia [facility] Respiratory rate 2023-02-18 16:17:00 18 /min [facility] Oxygen saturation in Arterial blood by Pulse oximetry 2023-02-18 16:17:00 100 /min [facility] Body weight 2023-02-18 07:50:00 58.968 kg [facility] BMI 2023-02-18 07:50:00 18.65 kg/m2 [facility] Body height 2023-02-16 00:31:00 177.8 cm [facility] Oxygen saturation in Arterial blood by Pulse oximetry 2023-02-07 19:29:00 99 /min [facility] Systolic blood pressure 2023-02-07 19:27:00 103 mm[Hg] [facility] Diastolic blood pressure 2023-02-07 19:27:00 75 mm[Hg] [facility] Heart rate 2023-02-07 19:27:00 104 /min [facility] Body temperature 2023-02-07 19:27:00 36.39 Tia [facility] Respiratory rate 2023-02-07 19:27:00 22 /min [facility] Body weight 2023-02-07 19:27:00 72.576 kg [facility] BMI 2023-02-07 19:27:00 22.96 kg/m2 [facility] Heart rate 2023-02-05 20:17:00 85 /min [facility] Respiratory rate 2023-02-05 20:17:00 18 /min [facility] Oxygen saturation in Arterial blood by Pulse oximetry 2023-02-05 20:17:00 100 /min [facility] Systolic blood pressure 2023-02-05 19:53:35 98 mm[Hg] [facility] Diastolic blood pressure 2023-02-05 19:53:35 71 mm[Hg] [facility] Body temperature 2023-02-05 19:51:00 36.5 Tia [facility] Body height 2023-02-05 19:51:00 177.8 cm [facility] Body weight 2023-02-05 19:51:00 72.576 kg [facility] BMI 2023-02-05 19:51:00 22.96 kg/m2 [facility] Heart rate 2023-02-04 20:31:00 76 /min [facility] Respiratory rate 2023-02-04 20:31:00 18 /min [facility] Oxygen saturation in Arterial blood by Pulse oximetry 2023-02-04 20:31:00 97 /min [facility] Systolic blood pressure 2023-02-04 20:15:00 126 mm[Hg] [facility] Diastolic blood pressure 2023-02-04 20:15:00 98 mm[Hg] [facility] Body temperature 2023-02-04 20:15:00 36.83 Tia [facility] Body weight 2023-02-04 20:15:00 72.576 kg [facility] BMI 2023-02-04 20:15:00 22.96 kg/m2 [facility] Systolic blood pressure 2023-02-03 23:00:00 100 mm[Hg] [facility] Diastolic blood pressure 2023-02-03 23:00:00 65 mm[Hg] [facility] Heart rate 2023-02-03 23:00:00 115 /min [facility] Respiratory rate 2023-02-03 23:00:00 20 /min [facility] Oxygen saturation in Arterial blood by Pulse oximetry 2023-02-03 23:00:00 97 /min [facility] Body temperature 2023-02-03 22:44:00 36.72 Tia [facility] Body weight 2023-02-03 22:44:00 72.576 kg [facility] BMI 2023-02-03 22:44:00 22.96 kg/m2 [facility] Systolic blood pressure 2023-02-03 20:02:00 128 mm[Hg] [facility] Diastolic blood pressure 2023-02-03 20:02:00 81 mm[Hg] [facility] Heart rate 2023-02-03 20:02:00 88 /min [facility] Respiratory rate 2023-02-03 20:02:00 25 /min [facility] Oxygen saturation in Arterial blood by Pulse oximetry 2023-02-03 20:02:00 94 /min [facility] Body temperature 2023-02-03 18:18:00 36.61 Tia [facility] Body weight 2023-02-03 17:41:00 72.576 kg [facility] BMI 2023-02-03 17:41:00 22.96 kg/m2 [facility] Heart rate 2023-02-02 22:49:00 107 /min [facility] Respiratory rate 2023-02-02 22:49:00 20 /min [facility] Oxygen saturation in Arterial blood by Pulse oximetry 2023-02-02 22:49:00 94 /min [facility] Systolic blood pressure 2023-02-02 22:32:00 102 mm[Hg] [facility] Diastolic blood pressure 2023-02-02 22:32:00 74 mm[Hg] [facility] Body temperature 2023-02-02 21:58:32 35.83 Tia [facility] Body height 2023-02-02 21:54:00 177.8 cm [facility] Body weight 2023-02-02 21:54:00 72.576 kg [facility] BMI 2023-02-02 21:54:00 22.96 kg/m2 [facility] Systolic blood pressure 2023-01-31 21:00:00 140 mm[Hg] [facility] Diastolic blood pressure 2023-01-31 21:00:00 72 mm[Hg] [facility] Heart rate 2023-01-31 21:00:00 89 /min [facility] Respiratory rate 2023-01-31 21:00:00 20 /min [facility] Oxygen saturation in Arterial blood by Pulse oximetry 2023-01-31 21:00:00 97 /min [facility] Body temperature 2023-01-31 18:50:00 36.72 Tia [facility] Body weight 2023-01-31 18:50:00 72.576 kg [facility] BMI 2023-01-31 18:50:00 22.96 kg/m2 [facility] Systolic blood pressure 2023-01-31 16:09:00 130 mm[Hg] [facility] Diastolic blood pressure 2023-01-31 16:09:00 72 mm[Hg] [facility] Heart rate 2023-01-31 16:09:00 99 /min [facility] Body temperature 2023-01-31 16:09:00 36.39 Tia [facility] Respiratory rate 2023-01-31 16:09:00 18 /min [facility] Body height 2023-01-31 16:09:00 177.8 cm [facility] Body weight 2023-01-31 16:09:00 72.576 kg [facility] BMI 2023-01-31 16:09:00 22.96 kg/m2 [facility] Oxygen saturation in Arterial blood by Pulse oximetry 2023-01-31 16:09:00 97 /min [facility] Systolic blood pressure 2023-01-31 14:50:00 134 mm[Hg] [facility] Diastolic blood pressure 2023-01-31 14:50:00 72 mm[Hg] [facility] Heart rate 2023-01-31 14:50:00 85 /min [facility] Body temperature 2023-01-31 14:50:00 36.39 Tia [facility] Respiratory rate 2023-01-31 14:50:00 20 /min [facility] Body weight 2023-01-31 14:50:00 72.576 kg [facility] BMI 2023-01-31 14:50:00 22.96 kg/m2 [facility] Oxygen saturation in Arterial blood by Pulse oximetry 2023-01-31 14:50:00 100 /min [facility] Respiratory rate 2023-01-29 13:40:00 20 /min [facility] Oxygen saturation in Arterial blood by Pulse oximetry 2023-01-29 13:40:00 100 /min [facility] Systolic blood pressure 2023-01-29 13:06:00 123 mm[Hg] [facility] Diastolic blood pressure 2023-01-29 13:06:00 76 mm[Hg] [facility] Heart rate 2023-01-29 13:06:00 97 /min [facility] Body temperature 2023-01-29 13:06:00 36.61 Tia [facility] Body height 2023-01-29 13:06:00 177.8 cm [facility] Body weight 2023-01-29 13:06:00 72.576 kg [facility] BMI 2023-01-29 13:06:00 22.96 kg/m2 [facility] Systolic blood pressure 2023-01-27 11:47:00 115 mm[Hg] [facility] Diastolic blood pressure 2023-01-27 11:47:00 75 mm[Hg] [facility] Heart rate 2023-01-27 11:47:00 100 /min [facility] Body temperature 2023-01-27 11:47:00 35.78 Tia [facility] Respiratory rate 2023-01-27 11:47:00 28 /min [facility] Oxygen saturation in Arterial blood by Pulse oximetry 2023-01-27 11:47:00 99 /min [facility] Body height 2023-01-27 09:57:00 177.8 cm [facility] Body weight 2023-01-27 09:57:00 72.576 kg [facility] BMI 2023-01-27 09:57:00 22.96 kg/m2 [facility] Heart rate 2023-01-24 20:55:00 88 /min [facility] Oxygen saturation in Arterial blood by Pulse oximetry 2023-01-24 20:55:00 93 /min [facility] Respiratory rate 2023-01-24 20:52:00 22 /min [facility] Systolic blood pressure 2023-01-24 20:30:00 128 mm[Hg] [facility] Diastolic blood pressure 2023-01-24 20:30:00 69 mm[Hg] [facility] Body temperature 2023-01-24 17:24:00 36.67 Tia [facility] Body height 2023-01-24 17:24:00 177.8 cm [facility] Body weight 2023-01-24 17:24:00 72.576 kg [facility] BMI 2023-01-24 17:24:00 22.96 kg/m2 [facility] Systolic blood pressure 2023-01-24 01:00:00 129 mm[Hg] [facility] Diastolic blood pressure 2023-01-24 01:00:00 76 mm[Hg] [facility] Heart rate 2023-01-24 01:00:00 77 /min [facility] Respiratory rate 2023-01-24 01:00:00 18 /min [facility] Oxygen saturation in Arterial blood by Pulse oximetry 2023-01-24 01:00:00 99 /min [facility] Body temperature 2023-01-24 00:02:00 35.61 Tia warm blankets applied [facility] Body weight 2023-01-24 00:02:00 58.968 kg [facility] BMI 2023-01-24 00:02:00 18.65 kg/m2 [facility] Heart rate 2023-01-22 23:46:00 93 /min [facility] Respiratory rate 2023-01-22 23:46:00 20 /min [facility] Oxygen saturation in Arterial blood by Pulse oximetry 2023-01-22 23:46:00 100 /min [facility] Systolic blood pressure 2023-01-22 23:21:00 146 mm[Hg] [facility] Diastolic blood pressure 2023-01-22 23:21:00 93 mm[Hg] [facility] Body temperature 2023-01-22 23:21:00 36.72 Tia [facility] Body weight 2023-01-22 23:21:00 58.968 kg [facility] BMI 2023-01-22 23:21:00 18.65 kg/m2 [facility] Heart rate 2023-01-21 21:57:00 84 /min [facility] Respiratory rate 2023-01-21 21:57:00 18 /min [facility] Oxygen saturation in Arterial blood by Pulse oximetry 2023-01-21 21:57:00 97 /min [facility] Systolic blood pressure 2023-01-21 21:00:00 103 mm[Hg] [facility] Diastolic blood pressure 2023-01-21 21:00:00 61 mm[Hg] [facility] Body temperature 2023-01-21 19:24:00 36.56 Tia [facility] Body weight 2023-01-21 19:24:00 58.968 kg [facility] BMI 2023-01-21 19:24:00 18.65 kg/m2 [facility] Systolic blood pressure 2023-01-19 21:00:00 111 mm[Hg] [facility] Diastolic blood pressure 2023-01-19 21:00:00 64 mm[Hg] [facility] Heart rate 2023-01-19 21:00:00 85 /min [facility] Body temperature 2023-01-19 21:00:00 36.56 Tia [facility] Respiratory rate 2023-01-19 21:00:00 17 /min [facility] Oxygen saturation in Arterial blood by Pulse oximetry 2023-01-19 21:00:00 98 /min [facility] Body height 2023-01-19 06:22:00 177.8 cm [facility] Body weight 2023-01-19 06:22:00 58.968 kg [facility] BMI 2023-01-19 06:22:00 18.65 kg/m2 [facility] Systolic blood pressure 2023-01-17 12:05:00 116 mm[Hg] [facility] Diastolic blood pressure 2023-01-17 12:05:00 69 mm[Hg] [facility] Heart rate 2023-01-17 12:05:00 100 /min [facility] Respiratory rate 2023-01-17 12:05:00 24 /min [facility] Oxygen saturation in Arterial blood by Pulse oximetry 2023-01-17 12:05:00 93 /min [facility] Body temperature 2023-01-17 10:59:00 35.39 Tia [facility] Body height 2023-01-17 10:59:00 177.8 cm [facility] Body weight 2023-01-17 10:59:00 58.968 kg [facility] BMI 2023-01-17 10:59:00 18.65 kg/m2 [facility] Systolic blood pressure 2023-01-07 19:38:00 122 mm[Hg] [facility] Diastolic blood pressure 2023-01-07 19:38:00 86 mm[Hg] [facility] Heart rate 2023-01-07 19:38:00 110 /min [facility] Respiratory rate 2023-01-07 19:38:00 16 /min [facility] Body height 2023-01-07 19:38:00 177.8 cm [facility] Body weight 2023-01-07 19:38:00 59.966 kg [facility] BMI 2023-01-07 19:38:00 18.97 kg/m2 [facility] Systolic blood pressure 2022-12-26 18:00:00 118 mm[Hg] [facility] Diastolic blood pressure 2022-12-26 18:00:00 79 mm[Hg] [facility] Heart rate 2022-12-26 18:00:00 93 /min [facility] Respiratory rate 2022-12-26 18:00:00 20 /min [facility] Oxygen saturation in Arterial blood by Pulse oximetry 2022-12-26 18:00:00 95 /min [facility] Body temperature 2022-12-26 15:49:00 36.11 Tia [facility] Body height 2022-12-26 15:49:00 177.8 cm [facility] Body weight 2022-12-26 15:49:00 72.576 kg [facility] BMI 2022-12-26 15:49:00 22.96 kg/m2 [facility] Respiratory rate 2022-12-12 16:45:00 18 /min [facility] Oxygen saturation in Arterial blood by Pulse oximetry 2022-12-12 16:45:00 99 /min [facility] Systolic blood pressure 2022-12-12 16:11:00 135 mm[Hg] [facility] Diastolic blood pressure 2022-12-12 16:11:00 80 mm[Hg] [facility] Heart rate 2022-12-12 16:11:00 77 /min [facility] Body temperature 2022-12-12 16:11:00 35.89 Tia [facility] Body weight 2022-12-12 08:50:00 65 kg [facility] BMI 2022-12-12 08:50:00 20.56 kg/m2 [facility] Body height 2022-12-11 04:23:00 177.8 cm [facility] Heart rate 2022-12-04 12:33:00 95 /min [facility] Respiratory rate 2022-12-04 12:33:00 17 /min [facility] Oxygen saturation in Arterial blood by Pulse oximetry 2022-12-04 12:33:00 98 /min [facility] Systolic blood pressure 2022-12-04 12:20:00 125 mm[Hg] [facility] Diastolic blood pressure 2022-12-04 12:20:00 74 mm[Hg] [facility] Body temperature 2022-12-04 12:20:00 36.61 Tia [facility] Body height 2022-12-02 05:16:00 177.8 cm [facility] Body weight 2022-12-02 05:16:00 72.576 kg [facility] BMI 2022-12-02 05:16:00 22.96 kg/m2 [facility] Systolic blood pressure 2022-12-01 13:00:00 114 mm[Hg] [facility] Diastolic blood pressure 2022-12-01 13:00:00 78 mm[Hg] [facility] Heart rate 2022-12-01 13:00:00 88 /min [facility] Respiratory rate 2022-12-01 13:00:00 20 /min [facility] Oxygen saturation in Arterial blood by Pulse oximetry 2022-12-01 13:00:00 98 /min [facility] Body temperature 2022-12-01 10:13:00 36.67 Tia [facility] Body height 2022-12-01 10:13:00 177.8 cm [facility] Body weight 2022-12-01 10:13:00 72.576 kg [facility] BMI 2022-12-01 10:13:00 22.96 kg/m2 [facility] Systolic blood pressure 2022-11-28 17:00:00 154 mm[Hg] [facility] Diastolic blood pressure 2022-11-28 17:00:00 106 mm[Hg] [facility] Heart rate 2022-11-28 17:00:00 87 /min [facility] Respiratory rate 2022-11-28 17:00:00 23 /min [facility] Oxygen saturation in Arterial blood by Pulse oximetry 2022-11-28 17:00:00 96 /min [facility] Body temperature 2022-11-28 16:00:00 36.78 Tia [facility] Body weight 2022-11-27 12:00:00 67.132 kg [facility] BMI 2022-11-27 12:00:00 21.24 kg/m2 [facility] Body height 2022-11-27 08:39:00 177.8 cm [facility] Systolic blood pressure 2022-11-19 10:48:00 152 mm[Hg] [facility] Diastolic blood pressure 2022-11-19 10:48:00 88 mm[Hg] [facility] Heart rate 2022-11-19 10:48:00 92 /min [facility] Respiratory rate 2022-11-19 10:48:00 16 /min [facility] Oxygen saturation in Arterial blood by Pulse oximetry 2022-11-19 10:48:00 98 /min [facility] Body temperature 2022-11-19 08:20:00 36.22 Tia [facility] Body height 2022-11-19 08:20:00 177.8 cm [facility] Body weight 2022-11-19 08:20:00 67.132 kg [facility] BMI 2022-11-19 08:20:00 21.24 kg/m2 [facility] Systolic blood pressure 2022-11-19 02:18:57 152 mm[Hg] [facility] Diastolic blood pressure 2022-11-19 02:18:57 91 mm[Hg] [facility] Heart rate 2022-11-19 02:18:57 109 /min [facility] Respiratory rate 2022-11-19 02:18:57 22 /min [facility] Oxygen saturation in Arterial blood by Pulse oximetry 2022-11-19 02:18:57 95 /min [facility] Body temperature 2022-11-19 02:17:11 36.78 Tia [facility] Body height 2022-11-19 00:52:00 177.8 cm [facility] Body weight 2022-11-19 00:52:00 67.132 kg [facility] BMI 2022-11-19 00:52:00 21.24 kg/m2 [facility] Heart rate 2022-11-11 17:35:00 75 /min [facility] Respiratory rate 2022-11-11 17:35:00 18 /min [facility] Oxygen saturation in Arterial blood by Pulse oximetry 2022-11-11 17:35:00 95 /min [facility] Systolic blood pressure 2022-11-11 17:25:00 130 mm[Hg] [facility] Diastolic blood pressure 2022-11-11 17:25:00 71 mm[Hg] [facility] Body temperature 2022-11-11 17:25:00 35.94 Tia [facility] Body weight 2022-11-11 09:34:00 77.52 kg [facility] BMI 2022-11-11 09:34:00 24.52 kg/m2 [facility] Body height 2022-11-09 19:30:00 177.8 cm [facility] Systolic blood pressure 2020-12-29 15:24:00 96 mm[Hg] [facility] Diastolic blood pressure 2020-12-29 15:24:00 66 mm[Hg] [facility] Heart rate 2020-12-29 15:24:00 71 /min [facility] Body temperature 2020-12-29 15:24:00 36.33 Tia [facility] Body weight 2020-12-29 15:24:00 72.576 kg [facility] BMI 2020-12-29 15:24:00 22.96 kg/m2 [facility] Oxygen saturation in Arterial blood by Pulse oximetry 2020-12-29 15:24:00 95 /min [facility] Systolic blood pressure 2020-12-18 19:07:00 117 mm[Hg] [facility] Diastolic blood pressure 2020-12-18 19:07:00 77 mm[Hg] [facility] Heart rate 2020-12-18 19:07:00 77 /min [facility] Body temperature 2020-12-18 19:07:00 36.22 Tia [facility] Respiratory rate 2020-12-18 19:07:00 18 /min [facility] Body height 2020-12-18 19:07:00 177.8 cm [facility] Body weight 2020-12-18 19:07:00 73.211 kg [facility] BMI 2020-12-18 19:07:00 23.16 kg/m2 [facility] Systolic blood pressure 2020-12-12 18:00:00 109 mm[Hg] [facility] Diastolic blood pressure 2020-12-12 18:00:00 74 mm[Hg] [facility] Heart rate 2020-12-12 18:00:00 78 /min [facility] Respiratory rate 2020-12-12 18:00:00 20 /min [facility] Oxygen saturation in Arterial blood by Pulse oximetry 2020-12-12 18:00:00 96 /min [facility] Body temperature 2020-12-12 16:33:00 37.28 Tia [facility] Body height 2020-12-12 16:33:00 177.8 cm [facility] Body weight 2020-12-12 16:33:00 70.308 kg [facility] BMI 2020-12-12 16:33:00 22.24 kg/m2 [facility] Systolic blood pressure 2020-12-08 18:55:00 125 mm[Hg] [facility] Diastolic blood pressure 2020-12-08 18:55:00 82 mm[Hg] [facility] Heart rate 2020-12-08 18:55:00 75 /min [facility] Body temperature 2020-12-08 18:55:00 36.56 Tia [facility] Respiratory rate 2020-12-08 18:55:00 16 /min [facility] Body height 2020-12-08 18:55:00 177.8 cm [facility] Body weight 2020-12-08 18:55:00 73.12 kg [facility] BMI 2020-12-08 18:55:00 23.13 kg/m2 [facility] Systolic blood pressure 2019-05-04 04:21:00 127 mm[Hg] [facility] Diastolic blood pressure 2019-05-04 04:21:00 86 mm[Hg] [facility] Heart rate 2019-05-04 04:21:00 99 /min [facility] Respiratory rate 2019-05-04 04:21:00 26 /min [facility] Body height 2019-05-04 04:21:00 177.8 cm [facility] Body weight 2019-05-04 04:21:00 72.576 kg [facility] BMI 2019-05-04 04:21:00 22.96 kg/m2 [facility] Oxygen saturation in Arterial blood by Pulse oximetry 2019-05-04 04:21:00 99 /min [facility] Systolic blood pressure 2019-05-04 04:21:00 127 mm[Hg] [facility] Diastolic blood pressure 2019-05-04 04:21:00 86 mm[Hg] [facility] Heart rate 2019-05-04 04:21:00 99 /min [facility] Respiratory rate 2019-05-04 04:21:00 26 /min [facility] Body height 2019-05-04 04:21:00 177.8 cm [facility] [facility] Body weight 2019-05-04 04:21:00 72.576 kg [facility] BMI 2019-05-04 04:21:00 22.96 kg/m2 [facility] Oxygen saturation in Arterial blood by Pulse oximetry 2019-05-04 04:21:00 99 /min [facility] Procedures Procedure Date / Time Performed Performing Clinician Source MEDICATION CORRESPONDENCE 2023-07-08 05:01:00 Do ctor Unassigned, Cadott [facility] CONSENT/REFUSAL FOR DIAGNOSIS AND TREATMENT 2023-03-01 19:49:30 Doctor Unassigned, Cadott [facility] TRANSTHORACIC ECHO (TTE) COMPLETE W/ CONTRAST 2023-02-16 13:56:56 Dedrick Toth [facility] TROPONIN I 2023-02-16 11:32:00 Dedrick Toth Uni [facility] COMP. METABOLIC PANEL ([id number]) 2023-02-16 11:32:00 Dedrick Toth [facility] CBC WITH DIFF 2023-02-16 11:32:00 Dedrick Toth Un [facility] N-TERMINAL PRO-BNP 2023-02-16 11:32:00 Dedrick Toth [facility] URINALYSIS 2023-02-15 21:18:00 [facility] & RHYTHM STRIP 2023-02-15 20:15:35 Francisca Bryant [facility] XR CHEST 1 VW 2023-02-15 20:14:30 [facility] PANEL 21 + LACTIC ACID 2023-02-15 20:02:00 Francisca Bryant [facility] MAGNESIUM 2023-02-15 20:01:00 [facility] 2023-02-15 20:01:00 Francisca Bryant [facility] COMP. METABOLIC PANEL ([id number]) 2023-02-15 20:01:00 Francisca Bryant [facility] CBC WITH DIFF 2023-02-15 20:01:00 Francisca Bryant [facility] ASSIGNMENT OF BENEFITS 2023-02-07 19:52:07 Docto r Unassigned, Cadott [facility] CONSENT/REFUSAL FOR DIAGNOSIS AND TREATMENT 2023-02-07 19:51:03 Doctor Unassigned, Cadott [facility] CONSENT/REFUSAL FOR DIAGNOSIS AND TREATMENT 2023-02-04 19:51:56 Doctor Unassigned, Cadott [facility] TROPONIN I 2023-01-31 20:21:00 Rachael Flowers [facility] COMP. METABOLIC PANEL ([id number]) 2023-01-31 20:21:00 Rachael Flowers [facility] ETHANOL 2023-01-31 20:21:00 Rachael Flowers [facility] CBC WITH DIFF 2023-01-31 20:21:00 Rachael Flowers [facility] N-TERMINAL PRO-BNP 2023-01-31 20:21:00 Fernando Flowers [facility] CONSENT/REFUSAL FOR DIAGNOSIS AND TREATMENT 2023-01-31 18:39:05 Doctor Unassigned, Cadott [facility] CONSENT/REFUSAL FOR DIAGNOSIS AND TREATMENT 2023-01-31 15:54:08 Doctor Unassigned, Cadott [facility] CONSENT/REFUSAL FOR DIAGNOSIS AND TREATMENT 2023-01-31 14:29:18 Doctor Unassigned, Cadott [facility] ACUTE CARE VENOUS BLOOD GAS 2023-01-27 10:45:00 Bessie Oswald [facility] TROPONIN I 2023-01-27 10:16:[address] [facility] BASIC METABOLIC PANEL (NA, K, CL, CO2, GLUCOSE, BUN, CREATININE, CA) 2023-01-27 10:16:00 Bessie Oswald [facility] CBC WITH DIFF 2023-01-27 10:16:00 JaBessie elaine [facility] N-TERMINAL PRO-BNP 2023-01-27 10:16:00 Bessie Oswald [facility] URINALYSIS 2023-01-24 20:23:00 Stephanie Almonte [facility] CT HEAD WO CONTRAST 2023-01-24 19:38:00 Stephanie Almonte [facility] AC ABG + LACTIC ACID 2023-01-24 18:37:00 Stephanie Almonte [facility] AMMONIA, PLASMA 2023-01-24 18:19:00 Stephanie Almonte as [facility] RAPID STREP SCREEN FOR GROUP A 2023-01-24 18:19:00 Stephanie Almonte [facility] COVID-19 (ID NOW RAPID TESTING) 2023-01-24 18:19:00 Stephanie Almonte [facility] TROPONIN I 2023-01-24 17:52:00 Stephanie Almonte [facility] COMP. METABOLIC PANEL ([id number]) 2023-01-24 17:52:00 Stephanie Almonte [facility] ETHANOL 2023-01-24 17:52:00 Stephanie Almonte [facility] CBC WITH DIFF 2023-01-24 17:52:00 Stephanie Almonte [facility] N-TERMINAL PRO-BNP 2023-01-24 17:52:00 [facility] COMP. METABOLIC PANEL ([id number]) 2023-01-21 20:58:00 Singer [facility] TROPONIN I 2023-01-21 20:05:00 Louis [facility] CBC WITH DIFF 2023-01-21 20:05:00 Singer Louis [facility] N-TERMINAL PRO-BNP 2023-01-21 20:05:00 Singer [facility] AC PANEL 21 + LACTIC ACID 2023-01-19 08:31:00 Zechariah Hackett [facility] D-DIMER 2023-01-19 08:17:00 Agapito Hackett [facility] BASIC METABOLIC PANEL (NA, K, CL, CO2, GLUCOSE, BUN, CREATININE, CA) 2023-01-19 08:15:00 Iza Varma [facility] CBC WITH DIFF 2023-01-19 08:15:00 Iza Varma [facility] N-TERMINAL PRO-BNP 2023-01-19 08:15:00 Agapito Hackett [facility] EKG-12 LEAD 2023-01-17 12:23:30 Marisol Devlin [facility] XR CHEST 1 VW 2023-01-17 11:25:05 [facility] 2023-01-17 11:04:00 Marisol Devlin [facility] COMP. METABOLIC PANEL ([id number]) 2023-01-17 11:04:00 Marisol Devlin [facility] CBC WITH DIFF 2023-01-17 11:04:00 Marisol Devlin [facility] N-TERMINAL PRO-BNP 2023-01-17 11:04:00 Marisol Devlin [facility] COMP. METABOLIC PANEL ([id number]) 2022-12-26 17:23:00 Iza Varma [facility] XR CHEST 1 VW 2022-12-26 16:39:21 Iza [facility] URINE DRUG (IMMUNOASSAY) - COMPREHENSIVE DRUG SCREEN 2022-12-26 16:29:00 Iza Varma [facility] URINALYSIS 2022-12-26 16:29:[address] [facility] CBC WITH DIFF 2022-12-26 16:28:00 Iza Var[facility] MAGNESIUM 2022-12-12 08:55:[address] [facility] BASIC METABOLIC PANEL (NA, K, CL, CO2, GLUCOSE, BUN, CREATININE, CA) 2022-12-12 08:55:00 Travis Zeng [facility] LIPID PANEL ([id number])(TOTAL CHOLESTEROL, TRIGLYCERIDES, HDL) 2022-12-12 08:55:00 Travis Zeng [facility] N-TERMINAL PRO-BNP 2022-12-12 08:55:00 Travis Zeng [facility] MAGNESIUM 2022-12-11 08:30:00 Dedrick Toth [facility] OSMOLALITY, SERUM OR PLASMA 2022-12-11 08:30:00 Dedrick Toth [facility] FREE T4 2022-12-11 08:30:00 Dedrick Toth [facility] BASIC METABOLIC PANEL (NA, K, CL, CO2, GLUCOSE, BUN, CREATININE, CA) 2022-12-11 08:30:00 Dedrick Toth [facility] CBC WITH DIFF 2022-12-11 08:30:00 [facility] 2022-12-11 08:30:00 Dedrick Toth [facility] OSMOLALITY URINE 2022-12-11 03:24:00 Dedrick Toth [facility] SODIUM, URINE RANDOM 2022-12-11 03:24:00 Gunnar Toth [facility] URINALYSIS 2022-12-11 01:15:00 Louis Hong [facility] HB ECG ROUTINE & RHYTHM STRIP 2022-12-11 00:38:04 Louis Hong [facility] CT HEAD WO CONTRAST 2022-12-11 00:32:23 Kameron Hong [facility] XR CHEST 1 VW 2022-12-11 00:29:20 Singer [facility] TROPONIN I 2022-12-11 00:08:00 Louis [facility] COMP. METABOLIC PANEL ([id number]) 2022-12-11 00:08:00 Louis Hong [facility] ETHANOL 2022-12-11 00:08:00 Louis Hong [facility] CBC WITH DIFF 2022-12-11 00:08:00 Louis Hong [facility] N-TERMINAL PRO-BNP 2022-12-11 00:08:00 Louis Hong [facility] LACTIC ACID WHOLE BLOOD 2022-12-11 00:03:00 Angelita Hong [facility] AUTHORIZATION FOR RELEASE OF PHI 2022-12-09 05:01:00 Doctor Unassigned, Cadott [facility] BASIC METABOLIC PANEL (NA, K, CL, CO2, GLUCOSE, BUN, CREATININE, CA) 2022-12-04 10:43:00 [facility] CBC WITH DIFF 2022-12-04 10:43:00 Clive Contreras [facility] OSMOLALITY URINE 2022-12-03 17:05:00 Lisseth De Santiago [facility] SODIUM, URINE RANDOM 2022-12-03 17:05:00 Haley De Santiago [facility] MAGNESIUM 2022-12-03 10:20:00 Clive Contreras [facility] BASIC METABOLIC PANEL (NA, K, CL, CO2, GLUCOSE, BUN, CREATININE, CA) 2022-12-03 10:20:00 [facility] CBC WITH DIFF 2022-12-03 10:20:00 Clive Contreras [facility] BASIC METABOLIC PANEL (NA, K, CL, CO2, GLUCOSE, BUN, CREATININE, CA) 2022-12-02 05:27:00 Carlo Maki [facility] CONSENT/REFUSAL FOR DIAGNOSIS AND TREATMENT 2022-12-02 05:08:30 Doctor Unassigned, Cadott [facility] HOSPITAL ADMISSION 2022-12-02 05:01:00 Doctor Un assigned, Cadott [facility] COVID-19 (ID NOW RAPID TESTING) 2022-12-01 13:01:00 Ernesto Piper [facility] XR CHEST 1 VW 2022-12-01 12:40:25 Marisol Devlin [facility] EKG-12 LEAD 2022-12-01 12:17:26 Marisol Devlin [facility] ACUTE CARE ARTERIAL BLOOD GAS 2022-12-01 12:06:00 Marisol Devlin [facility] TROPONIN I 2022-12-01 11:51:00 Marisol Devlin [facility] BASIC METABOLIC PANEL (NA, K, CL, CO2, GLUCOSE, BUN, CREATININE, CA) 2022-12-01 11:51:00 Marisol Devlin [facility] CBC WITH DIFF 2022-12-01 11:51:00 Marisol Devlin [facility] BASIC METABOLIC PANEL (NA, K, CL, CO2, GLUCOSE, BUN, CREATININE, CA) 2022-11-28 16:51:00 Leila Chapa [facility] URIC ACID 2022-11-28 08:14:00 Reyna [facility] THYROID STIMULATING HORMONE 2022-11-28 08:14:00 Reyna [facility] BASIC METABOLIC PANEL (NA, K, CL, CO2, GLUCOSE, BUN, CREATININE, CA) 2022-11-28 08:14:00 Leila Chapa [facility] CBC WITH DIFF 2022-11-28 08:14:[address] [facility] BASIC METABOLIC PANEL (NA, K, CL, CO2, GLUCOSE, BUN, CREATININE, CA) 2022-11-28 04:16:00 María Diaz [facility] BASIC METABOLIC PANEL (NA, K, CL, CO2, GLUCOSE, BUN, CREATININE, CA) 2022-11-28 00:33:00 Leila Chapa [facility] BASIC METABOLIC PANEL (NA, K, CL, CO2, GLUCOSE, BUN, CREATININE, CA) 2022-11-27 19:55:00 María Diaz [facility] MRSA / MSSA SCREEN BY ERIKA NARANJO 2022-11-27 09:21:00 María Diaz [facility] OSMOLALITY, SERUM OR PLASMA 2022-11-27 09:10:00 María Diaz [facility] OSMOLALITY URINE 2022-11-27 09:04:00 María Diaz [facility] BASIC METABOLIC PANEL (NA, K, CL, CO2, GLUCOSE, BUN, CREATININE, CA) 2022-11-27 09:04:00 María Diaz [facility] URINE DRUG (IMMUNOASSAY) - COMPREHENSIVE DRUG SCREEN 2022-11-27 09:04:00 María Diaz [facility] URINALYSIS 2022-11-27 09:04:00 María Diaz [facility] CREATININE, URINE RANDOM 2022-11-27 09:04:00 Ben Diaz [facility] SODIUM, URINE RANDOM 2022-11-27 09:04:00 María Diaz [facility] XR CHEST 1 VW 2022-11-27 06:15:54 Bessie Oswald [facility] MAGNESIUM 2022-11-27 05:33:00 María Diaz [facility] TROPONIN I 2022-11-27 05:33:[address] [facility] COMP. METABOLIC PANEL ([id number]) 2022-11-27 05:33:00 Bessie Oswald [facility] ETHANOL 2022-11-27 05:33:[address] [facility] CBC WITH DIFF 2022-11-27 05:33:00 Bessie Oswald [facility] GLYCOSYLATED HEMOGLOBIN (A1C) 2022-11-27 05:33:00 Leila Chapa [facility] N-TERMINAL PRO-BNP 2022-11-27 05:33:00 Bessie Oswald [facility] HB ECG ROUTINE & RHYTHM STRIP 2022-11-27 05:31:54 Bessie Oswald [facility] COMP. METABOLIC PANEL ([id number]) 2022-11-19 08:44:00 Iza Varma [facility] CBC WITH DIFF 2022-11-19 08:44:00 Iza Var[facility] N-TERMINAL PRO-BNP 2022-11-19 08:44:00 Iza Varma [facility] BASIC METABOLIC PANEL (NA, K, CL, CO2, GLUCOSE, BUN, CREATININE, CA) 2022-11-11 10:52:00 Iza Eden [facility] CBC WITH DIFF 2022-11-11 10:52:00 Iza Eden [facility] BASIC METABOLIC PANEL (NA, K, CL, CO2, GLUCOSE, BUN, CREATININE, CA) 2022-11-11 02:16:00 [place] [facility] BASIC METABOLIC PANEL (NA, K, CL, CO2, GLUCOSE, BUN, CREATININE, CA) 2022-11-10 22:45:00 [place] [facility] BASIC METABOLIC PANEL (NA, K, CL, CO2, GLUCOSE, BUN, CREATININE, CA) 2022-11-10 17:27:00 [place] [facility] BASIC METABOLIC PANEL (NA, K, CL, CO2, GLUCOSE, BUN, CREATININE, CA) 2022-11-10 11:49:00 [place] [facility] MAGNESIUM 2022-11-10 07:14:[address] [facility] BASIC METABOLIC PANEL (NA, K, CL, CO2, GLUCOSE, BUN, CREATININE, CA) 2022-11-10 07:14:00 [place] [facility] CBC WITH DIFF 2022-11-10 07:14:00 [place] [facility] XR CHEST 1 VW 2022-11-09 07:53:00 Marisol Devlin [facility] LIPASE 2022-11-09 07:53:00 Marisol Devlin [facility] TROPONIN I 2022-11-09 07:53:00 Marisol Devlin [facility] COMP. METABOLIC PANEL ([id number]) 2022-11-09 07:53:00 Marisol Devlin [facility] CBC WITH DIFF 2022-11-09 07:53:00 Marisol Devlin [facility] N-TERMINAL PRO-BNP 2022-11-09 07:53:00 Marisol Devlin [facility] ACUTE CARE ARTERIAL BLOOD GAS 2022-11-09 07:50:00 Marisol Devlin [facility] HB ECG ROUTINE & RHYTHM STRIP 2022-11-09 07:39:47 Marisol Devlin [facility] ASSIGNMENT OF BENEFITS 2021-05-20 19:26:54 Duran eduardo Unassigned, Cadott [facility] POCT URINALYSIS AUTO 2020-12-18 19:04:00 Zeus Turner [facility] CT ABDOMEN PELVIS W CONTRAST 2020-12-12 17:25:03 Francisca Bryant [facility] BASIC METABOLIC PANEL (NA, K, CL, CO2, GLUCOSE, BUN, CREATININE, CA) 2020-12-12 16:47:00 Francisca Bryant [facility] CBC WITH DIFF 2020-12-12 16:47:00 [facility] 2020-12-12 16:47:00 [facility]isc[facility] NOTICE OF PRIVACY PRACTICES 2020-12-12 16:28:57 Doctor Unassigned, Cadott [facility] CONSENT/REFUSAL FOR DIAGNOSIS AND TREATMENT 2020-12-12 16:28:23 Doctor Unassigned, Cadott [facility] POCT URINALYSIS AUTO 2020-12-08 18:56:00 Jeanette Mcdaniel [facility] CONSENT/REFUSAL FOR DIAGNOSIS AND TREATMENT 2020-12-08 18:26:17 Doctor Unassigned, Cadott [facility] ASSIGNMENT OF BENEFITS 2020-12-08 18:25:58 Duran eduardo Unassigned, Cadott [facility] AUTHORIZATION FOR RELEASE OF PHI 2020-02-20 05:01:00 Doctor Unassigned, Cadott [facility] NOTICE OF PRIVACY PRACTICES 2019-05-04 04:10:29 Doctor Unassigned, Cadott [facility] CONSENT/REFUSAL FOR DIAGNOSIS AND TREATMENT 2019-05-04 04:10:09 Doctor Unassigned, Cadott [facility] Encounters Start Date/Time End Date/Time Encounter Type Admission Type Attending [facility] Care Facility Care Department Encounter ID Source 2021-07-19 08:46:33 Emergency [facility] [id number] [facility] 2023-07-21 10:00:00 2023-07-21 10:00:00 Outpatient R AUSTYN MARYNOMI CLIFTON [facility] [id number] [facility] 2023-07-15 00:00:00 2023-07-15 00:00:00 Case Management Nomi Mary [facility] 1.20.114 350.1.13.10 4.2.7.2.686 [id number] [facility] 2023-07-08 00:00:00 2023-07-08 00:00:00 [facility] 1.2.114 350.1.13.10 4.2.7.2.686 [id number] [facility] 2023-07-08 00:00:00 2023-07-08 00:00:00 Orders Only Doctor Unassigned, Cadott [facility] 1.20.114 350.1.13.10 4.2.7.2.686 [id number] [facility] 2023-04-22 00:00:00 2023-04-22 00:00:00 Outpatient R MARY YENNIVLADISLAVYENNI CLIFTONSDTim [facility] [id number] [facility] 2023-04-19 10:00:00 2023-04-19 10:53:24 Outpatient R NOMI [facility] [id number] [facility] 2023-04-19 10:00:00 2023-04-19 10:53:24 Office Visit Mathew Yennivatim [facility] 1.2.114 350.1.13.10 4.2.7.2.686 [id number] [facility] 2023-04-19 00:00:00 2023-04-19 00:00:00 Patient Outreach Marika Monge 1.2.114 350.1.13.10 4.2.7.2.686 [id number] [facility] 2023-03-01 16:30:00 2023-03-01 17:00:00 [facility] 1.284.114 350.1.13.10 4.2.7.2.686 [id number] [facility] 2023-03-01 16:30:00 2023-03-01 16:30:00 Outpatient R ADRIANO [facility] [id number] [facility] 2023-03-01 00:00:00 2023-03-01 00:00:00 Orders Only Doctor Unassigned, Cadott [facility] 1..114 350.1.13.10 4.2.7.2.686 [id number] [facility] 2023-03-01 00:00:00 2023-03-01 00:00:00 Refill Mily Goodwin [facility] 1.84.114 350.1.13.10 4.2.7.2.686 [id number] [facility] 2023-02-21 00:00:00 2023-02-21 00:00:00 Transition of Care Taylor Frye 1.2114 350.1.13.10 4.2.7.2.686 [id number] [facility] 2023-02-15 14:41:00 2023-02-18 16:11:00 Inpatient X TRAVIS ZENG [facility] [id number] [facility] 2023-02-15 14:41:00 2023-02-18 16:11:00 Hospital Encounter Iza Varma Sandra J Oville, Jelani [facility] 1.2.114 350.1.13.10 4.2.7.2.686 [id number] [facility] 2023-02-07 14:30:00 2023-02-07 16:01:00 Emergency X PRADIP AUSTIN [facility] ERT [id number] [facility] 2023-02-07 14:30:00 2023-02-07 16:01:00 Emergency Pradip Austin [facility] 1.2.840.114 350.1.13.10 4.2.7.2.686 [id number] [facility] 2023-02-07 10:20:00 2023-02-07 10:20:00 Outpatient CARL ALDRIDGE CHRISTINE [facility] [id number] [facility] 2023-02-05 14:53:00 2023-02-05 16:10:00 Emergency X CHOHERMINIA [facility] ERT [id number] [facility] 2023-02-05 14:53:00 2023-02-05 16:10:00 Emergency Herminia Cho [facility] 1.2.840.114 350.1.13.10 4.2.7.2.686 [id number] [facility] 2023-02-04 15:26:00 2023-02-04 16:25:00 Emergency X FRANCISCA BRYANT [facility] ERT [id number] [facility] 2023-02-04 15:26:00 2023-02-04 16:25:00 Emergency Francisca Bryant [facility] 1.2.840.114 350.1.13.10 4.2.7.2.686 [id number] [facility] 2023-02-03 17:46:00 2023-02-03 18:47:00 Emergency X LOUIS HONG [facility] ERT [id number] [facility] 2023-02-03 17:46:00 2023-02-03 18:47:00 Emergency X LOUIS HONG [facility] ERT [id number] [facility] 2023-02-03 17:46:00 2023-02-03 18:47:00 Emergency Louis Hong [facility] 1.2.840.114 350.1.13.10 4.2.7.2.686 [id number] [facility] 2023-02-03 12:43:00 2023-02-03 15:04:00 Emergency Bessie Oswald [facility] 1.2.840.114 350.1.13.10 4.2.7.2.686 [id number] [facility] 2023-02-02 16:49:00 2023-02-02 18:10:00 Emergency X LOUIS HONG [facility] ERT [id number] [facility] 2023-02-02 16:49:00 2023-02-02 18:10:00 Emergency Louis Hong [facility] 1.2.840.114 350.1.13.10 4.2.7.2.686 [id number] [facility] 2023-01-31 13:55:00 2023-01-31 16:50:00 Emergency X RACHAEL FLOWERS [facility] ERT [id number] [facility] 2023-01-31 13:55:00 2023-01-31 16:50:00 Emergency X RACHAEL FLOWERS [facility] ERT [id number] [facility] 2023-01-31 13:55:00 2023-01-31 16:50:00 Emergency Rachael Flowers [facility] 1.2.840.114 350.1.13.10 4.2.7.2.686 [id number] [facility] 2023-01-31 11:11:00 2023-01-31 12:12:00 Emergency X LEOBARDO SLOAN [facility] ERT [id number] [facility] 2023-01-31 11:11:00 2023-01-31 12:12:00 Emergency Leobardo Sloan [facility] 1.2.840.114 350.1.13.10 4.2.7.2.686 [id number] 084 [id number] [facility] 2023-01-31 09:51:00 2023-01-31 10:16:00 Emergency [facility] 1.2.840.114 350.1.13.10 4.2.7.2.686 [id number] 084 [id number] [facility] 2023-01-29 08:08:00 2023-01-29 10:00:00 Emergency X HERMINIA CHO [facility] ERT [id number] [facility] 2023-01-29 08:08:00 2023-01-29 10:00:00 Emergency Herminia Cho [facility] 1.2.840.114 350.1.13.10 4.2.7.2.686 [id number] 084 [id number] [facility] 2023-01-27 04:50:00 2023-01-27 07:03:00 Emergency X SIMONEBESSIE Chandler [facility] ERT [id number] [facility] 2023-01-27 04:50:00 2023-01-27 07:03:00 Emergency Bessie Oswald [facility] 1.2.840.114 350.1.13.10 4.2.7.2.686 [id number] 084 [id number] [facility] 2023-01-27 00:00:00 2023-01-27 00:00:00 Telephone Nomi Mary [facility] 1.2.840.114 350.1.13.10 4.2.7.2.686 [id number] 085 [id number] [facility] 2023-01-24 12:28:00 2023-01-24 16:16:00 Emergency X STEPHANIE ALMONTE [facility] ERT [id number] [facility] 2023-01-24 12:28:00 2023-01-24 16:16:00 Emergency Stephanie Almonte [facility] 1.2.840.114 350.1.13.10 4.2.7.2.686 [id number] 084 [id number] [facility] 2023-01-23 19:02:00 2023-01-23 20:36:00 Emergency X IZA VARMA [facility] ERT [id number] [facility] 2023-01-23 19:02:00 2023-01-23 20:36:00 Emergency Iza Varma [facility] 1.2.840.114 350.1.13.10 4.2.7.2.686 [id number] 084 [id number] [facility] 2023-01-22 18:24:00 2023-01-22 19:55:00 Emergency X IZA VARMA [facility] ERT [id number] [facility] 2023-01-22 18:24:00 2023-01-22 19:55:00 Emergency Iza Varma [facility] 1.2.840.114 350.1.13.10 4.2.7.2.686 [id number] 084 [id number] [facility] 2023-01-21 14:20:00 2023-01-21 18:14:00 Emergency LOUIS THOMPSON [facility] ERT [id number] [facility] 2023-01-21 14:20:00 2023-01-21 18:14:00 Emergency Louis [facility] 1.2.840.114 350.1.13.10 4.2.7.2.686 [id number] 084 [id number] [facility] 2023-01-20 00:00:00 2023-01-20 00:00:00 Transition of Care Taylor Frye 1.2.840.114 350.1.13.10 4.2.7.2.686 [id number] 403 [id number] [facility] 2023-01-19 01:15:00 2023-01-19 19:40:00 Hospital Encounter [facility] , Kathia Varma, Iza Hackett, María Escobar [facility] 1.2.840.114 350.1.13.10 4.2.7.2.686 [id number] [id number] [facility] 2023-01-17 05:57:00 2023-01-17 07:37:00 Emergency X MARISOL DEVLIN [facility] ERT [id number] [facility] 2023-01-17 05:57:00 2023-01-17 07:37:00 Emergency Marisol Devlin [facility] 1.2.840.114 350.1.13.10 4.2.7.2.686 [id number] [id number] [facility] 2023-01-17 05:57:00 2023-01-17 07:37:00 Emergency X MARISOL DEVLIN [facility] ERT [id number] [facility] 2023-01-10 00:00:00 2023-01-10 00:00:00 Letter (Out) Herminia Oh [facility] 1..840.114 350.1.13.10 4.2.7.2.686 [id number] 092 [id number] [facility] 2023-01-07 14:30:00 2023-01-07 15:25:56 Outpatient R HERMINIA OH [facility] [id number] [facility] 2023-01-07 14:30:00 2023-01-07 15:25:56 Office Visit Herminia Oh [facility] 1.840.114 350.1.13.10 4.2.7.2.686 [id number] 092 [id number] [facility] 2022-12-26 10:50:00 2022-12-26 14:12:00 Emergency X IZA VARMA [facility] ERT [id number] [facility] 2022-12-26 10:50:00 2022-12-26 14:12:00 Emergency Iza Varma S [facility] 1.84.114 350.1.13.10 4.2.7.2.686 [id number] 084 [id number] [facility] 2022-12-14 11:30:00 2022-12-14 11:30:00 Outpatient R NOMI MARY SHISDTim [facility] [id number] [facility] 2022-12-14 00:00:00 2022-12-14 00:00:00 Transition of Care Taylor Frye [facility] 1.840.114 350.1.13.10 4.2.7.2.686 [id number] 403 [id number] [facility] 2022-12-10 18:49:00 2022-12-12 14:35:00 Outpatient X TRAVIS ZENG [facility] [id number] [facility] 2022-12-10 18:49:00 2022-12-12 14:35:00 Hospital Encounter Louis Hong Mohammad A. Oville, Jelani [facility] 1.840.114 350.1.13.10 4.2.7.2.686 [id number] 081 [id number] [facility] 2022-12-10 00:00:00 2022-12-10 00:00:00 Case Management Nomi Mary [facility] 1.2.840.114 350.1.13.10 4.2.7.2.686 [id number] 085 [id number] [facility] 2022-12-10 00:00:00 2022-12-10 00:00:00 Transition of Care Cecy Caro 1.2.840.114 350.1.13.10 4.2.7.2.686 [id number] 403 [id number] [facility] 2022-12-09 00:00:00 2022-12-09 00:00:00 Orders Only Doctor Unassigned, Cadott [facility] 1.2.840.114 350.1.13.10 4.2.7.2.686 [id number] [id number] [facility] 2022-12-06 00:00:00 2022-12-06 00:00:00 Transition of Care Taylor Frye 1.2.840.114 350.1.13.10 4.2.7.2.686 [id number] 403 [id number] [facility] 2022-12-02 00:13:00 2022-12-04 12:30:00 Hospital Encounter Carlo Maki, Abi Contreras, [facility] 1.2.840.114 350.1.13.10 4.2.7.2.686 [id number] [facility] 2022-12-01 05:32:00 2022-12-01 09:08:00 Emergency ERNESTO SHANE CHARLES [facility] ERT [id number] [facility] 2022-12-01 05:32:00 2022-12-01 09:08:00 Emergency Marisol Devlin Charles Davis, Elizabeth [facility] 1.2.840.114 350.1.13.10 4.2.7.2.686 [id number] [id number] [facility] 2022-12-01 05:32:00 2022-12-01 09:08:00 Emergency U ERNESTO PIPER CHARLES [facility] ERT [id number] [facility] 2022-11-26 22:55:00 2022-11-28 13:50:00 Outpatient X DHARMESH LEILA [facility] [id number] [facility] 2022-11-26 22:55:00 2022-11-28 13:50:00 Hospital Encounter Bessie Oswald David Abdullah, Yaman [facility] 1.840.114 350.1.13.10 4.2.7.2.686 [id number] [facility] 2022-11-19 02:17:00 2022-11-19 05:12:00 Emergency X VARMAIZA [facility] ERT [id number] [facility] 2022-11-19 02:17:00 2022-11-19 05:12:00 Emergency Sandro Varmaosbaldo Chandler [facility] 1.840.114 350.1.13.10 4.2.7.2.686 [id number] 084 [id number] [facility] 2022-11-18 18:52:00 2022-11-18 20:29:00 Emergency X FRANCISCA BRYANT [facility] ERT [id number] [facility] 2022-11-18 18:52:00 2022-11-18 20:29:00 Emergency Francisca Bryant [facility] 1.2840.114 350.1.13.10 4.2.7.2.686 [id number] 084 [id number] [facility] 2022-11-17 00:00:00 2022-11-17 00:00:00 [facility] 1.2840.114 350.1.13.10 4.2.7.2.686 [id number] [facility] 2022-11-12 00:00:00 2022-11-12 00:00:00 Transition of Care Frye Taylor B GARY GIORDANO 1.2840.114 350.1.13.10 4.2.7.2.686 [id number] 403 [id number] [facility] 2022-11-09 01:32:00 2022-11-11 13:35:00 Inpatient X DAVEYRADHA TRAVIS [facility] [id number] [facility] 2022-11-09 01:32:00 2022-11-11 13:35:00 Hospital Encounter [facility] 1.2840.114 350.1.13.10 4.2.7.2.686 [id number] [id number] [facility] 2021-05-22 00:00:00 2021-05-22 00:00:00 Telephone Jeanette Mcdaniel [facility] 1.20.114 350.1.13.10 4.2.7.2.686 [id number] [facility] 2021-05-20 14:28:38 2021-05-20 14:43:38 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, Adc 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 Main Jimy [facility] 1.20.114 350.1.13.10 4.2.7.2.686 [id number] [facility] 2021-05-20 14:30:00 2021-05-20 14:30:00 [id number] 2021-05-20 00:00:00 2021-05-20 00:00:00 Orders Only Doctor Unassigned, Cadott [facility] 1.20.114 350.1.13.10 4.2.7.2.686 [id number] [facility] 2021-05-20 00:00:00 2021-05-20 00:00:00 Tele[facility]ul [facility] 1.2.840.114 350.1.13.10 4.2.7.2.686 [id number] [facility] 2020-12-29 10:12:45 2020-12-29 11:07:51 Office Visit JimyGokul [facility] 1.2.840.114 350.1.13.10 4.2.7.2.686 [id number] [facility] 2020-12-29 10:15:00 2020-12-29 10:15:00 Outpatient R GOKUL TURNER [facility] [id number] [facility] 2020-12-18 13:36:17 2020-12-18 14:58:35 Office Visit Gokul Turner Rm, Adc Surg Spec Procedure [facility] 1.2.840.114 350.1.13.10 4.2.7.2.686 [id number] [facility] 2020-12-18 14:00:00 2020-12-18 14:00:00 Outpatient R GOKUL TURNER [facility] [id number] [facility] 2020-12-16 00:00:00 2020-12-16 00:00:00 Outpatient R JEANETTE MCDANIEL [facility] [id number] [facility] 2020-12-16 00:00:00 2020-12-16 00:00:00 Telephone Jeanette Mcdaniel [facility] 1.2.840.114 350.1.13.10 4.2.7.2.686 [id number] [facility] 2020-12-12 11:36:00 2020-12-12 13:42:00 Emergency SylvainFrancisca Trina [facility] 1.2.840.114 350.1.13.10 4.2.7.2.686 [id number] 084 [id number] [facility] 2020-12-12 00:00:00 2020-12-12 00:00:00 Telephone Jeanette Mcdaniel [facility] 1.2.840.114 350.1.13.10 4.2.7.2.686 [id number] [facility] 2020-12-08 13:28:10 2020-12-08 14:09:14 Office Visit Jeanette Mcdaniel [facility] 1.2.840.114 350.1.13.10 4.2.7.2.686 [id number] [facility] 2020-12-08 13:30:00 2020-12-08 13:30:00 Outpatient R YUNG MCDANIELELA [facility] [id number] [facility] 2020-12-08 00:00:00 2020-12-08 00:00:00 Orders Only Doctor Unassigned, Cadott [facility] 1.2840.114 350.1.13.10 4.2.7.2.686 [id number] [id number] [facility] 2020-12-07 00:00:00 2020-12-07 00:00:00 Nurse Triage Herminia Perez [facility] 1.2.840.114 350.1.13.10 4.2.7.2.686 [id number] [facility] 2020-02-20 00:00:00 2020-02-20 00:00:00 Orders Only Doctor Unassigned, Cadott [facility] 1.2.840.114 350.1.13.10 4.2.7.2.686 [id number] [id number] 2020-02-20 00:00:00 2020-02-20 00:00:00 Orders Only Doctor Unassigned, Cadott [facility] 1.2.840.114 350.1.13.10 4.2.7.2.686 [id number] [facility] 2019-08-28 08:25:33 2019-08-28 11:54:00 Emergency X HERMINIA CHO [facility] ERT [id number] [facility] 2019-08-24 01:43:17 2019-08-24 03:52:00 Emergency X LOUIS HONG [facility] ERT [id number] [facility] 2019-05-03 23:28:18 2019-05-04 00:27:00 Emergency Ramesh Encinas [facility] 1.2.840.114 350.1.13.10 4.2.7.2.686 [id number] [id number] [facility] 2019-05-03 23:28:18 2019-05-04 00:27:00 Emergency Ramesh Encinas [facility] 1.2.840.114 350.1.13.10 4.2.7.2.686 [id number] [id number] 2019-05-03 00:00:00 2019-05-03 00:00:00 Orders Only Doctor Unassigned, Cadott [facility] 1.2.840.114 350.1.13.10 4.2.7.2.686 [id number] [id number] [facility] 2019-05-03 00:00:00 2019-05-03 00:00:00 Orders Only Doctor Unassigned, Cadott [facility] 1.2.840.114 350.1.13.10 4.2.7.2.686 [id number] [id number] Results Test Description Test Time Test Comments Results Result Co mments Source [facility]OLIC PAN[facility] (63300)2023-02-15 21:00:57* Test Item Value Reference Range Interpretation Comme nts NA (test code = 2706428794) 133 mmol/L 135-145 L K (test code = 3688237322) 4.5 mmol/L 3.5-5.0 CL (test code = 4313710081) 90 mmol/L 98-108 L CO2 TOTAL (test code = 3308726042) 40 mmol/L 23-31 H AGAP (test code = 9383494730) 3 2-16 BUN (test code = 7419562197) 25 mg/dL 7-23 H GLUCOSE (test code = 8660491907) 107 mg/dL 70-110 CREATININE (test code = 1458788165) 0.88 mg/dL 0.60-1.25 TOTAL BILI (test code = 4057749063) 1.6 mg/dL 0.1-1.1 H CALCIUM (test code = 8510171225) 8.9 mg/dL 8.6-10.6 T PROTEIN (test code = 2017233103) 6.1 g/dL 6.3-8.2 L ALBUMIN (test code = 2253882820) 3.7 g/dL 3.5-5.0 ALK PHOS (test code = 6949454157) 56 U/L 34-122 ALTv (test code = 1742-6) 14 U/L 5-50 AST(SGOT) (test code = 7995172013) 12 U/L 13-40 L eGFR (test code = 9045051013) 87.2 mL/min/1.73m2 OMAYRA (test code = OMAYRA) [...] imaging tests). Lab Interpretation (test code = 10281-9) Abnormal [facility]2023-05-30 21:00:57* Test Item Value Reference Range Interpretation Comme nts MAGNESIUM (test code = 1573831822) 2.0 mg/dL 1.7-2.4 Lab Interpretation (test cod e = 06153-1) Normal [facility] WITH [id number] 20:53:39* Test Item Value Reference Range Interpretation Comme nts WBC (test code = 6690-2) 9.03 See_Comment [Automated Tamion] The system which generated this result transmitted reference range: 4.20 - 10.70 10*3/?L. The reference range was not used to interpret this result as normal/abnormal. RBC (test code = 789-8) 4.50 See_Comment [Automated Tamion] The system which generated this result transmitted [...] 33.0 g/dL 31.2-35.0 RDW-SD (test code = 50011-4) 50.1 fL 38.5-51.6 RDW-CV (test code = 788-0) 13.6 % 12.1-15.4 PLT (test code = 777-3) 223 See_Comment [Automated messa ge] The system which generated this result transmitted reference range: 150 - 328 10*3/?L. The reference range was not used to interpret this result as normal/abnormal. MPV (test code = 01115-4) 12.1 fL 9.8-13.0 NRBC/100 WBC (test code = 5372330591) 0.0 See_Comment [Automated Munchkin Fun ssage] The system which generated this result transmitted reference range: 0.0 - 10.0 /100 WBCs. The reference range was not used to interpret this result as normal/abnormal. NRBC x10^3 (test code = 8629756944) See_Comment [Automated messa ge] The system which generated this result transmitted reference range: 10*3/?L. The reference range was not used to interpret this result as normal/abnormal. GRAN MAT (NEUT) % (test code = 770-8) 72.8 % IMM GRAN % (test code = 4526303786) 0.90 % LYMPH % (test code = 736-9) 17.7 % MONO % (test code = 5905-5) 7.4 % EOS % (test code = 713-8) 0.9 % BASO % (test code = 706-2) 0.3 % GRAN MAT x10^3(ANC) (test code = 4041479668) 6.57 10*3/uL 1.99-6.95 IMM GRAN x10^3 (test code = 0874641349) 0.08 10*3/uL 0.00-0.06 H LYMPH x10^3 (test code = 731-0) 1.60 10*3/uL 1.09-3.23 MONO x10^3 (test code = 742-7) 0.67 10*3/uL 0.36-1.02 EOS x10^3 (test code = 711-2) 0.08 10*3/uL 0.06-0.53 BASO x10^3 (test code = 704-7) 0.03 10*3/uL 0.01-0.09 Lab Interpretation (test code = 28326-7) [facility] L[facility] [id number] 20:11:20* Test Item Value Reference Range Interpretation Comme nts PH (test code = 5529507104) 7.33 7.32-7.42 PCO2 ERVIN (test code = 3982518741) 75 See_Comment H [Automated messa ge] The system which generated this result transmitted reference range: 41 - 51 mmHg. The reference range was not used to interpret this result as normal/abnormal. PO2 ERVIN (test code = 4122551964) 20 See_Comment L [Automated messa ge] The system which generated this result transmitted reference range: 25 - 40 mmHg. The reference range was not used to interpret this result as normal/abnormal. HCO3 ERVIN (test code = 4963382368) 39 See_Comment H [Automated messa ge] The system which generated this result transmitted reference range: 24 - 28 mEq/L. The reference range was not used to interpret this result as normal/abnormal. AC VBE(BEAKER) (test code = 3325979192) 9.1 mEq/L THB ERVIN (test code = 0158865062) 15.9 g/dL 13.5-18.0 %O2HB ERVIN (test code = 6875846779) 30.0 % 52.0-63.0 L %COHB ERVIN (test code = 4314821252) 4.1 % 0.0-1.5 H %METHB ERVIN (test code = 5981927365) 0.3 % 0.4-1.5 L VOL%O2 ERVIN (test code = 6343239852) 6.7 % 6.0-12.0 NA (test code = 1586649691) 137 mmol/L 135-145 K+ (test code = 8449146265) 4.5 mmol/L 3.5-5.0 AC CA IONZ (test code = 2729308509) 4.60 mg/dL 4.50-5.30 GLUCOSE (test code = 9295474530) 113 mg/dL 70-110 H LACTIC ACID (test code = 5087601883) 1.65 mmol/L 0.50-2.20 Lab Interpretation (test code = 23778-7) Abnormal [facility] [id number] 21:20:05* Test Item Value Reference Range Interpretation Comme nts TROPONIN I (test code = 8263197086) 0.005 ng/mL <=0.034 OMAYRA (test code = [...] of biotin. Lab Interpretation (test code = 45776-0) Normal [facility] [id number] 21:17:24* Test Item Value Reference Range Interpretation Comme nts NT-proBNP (test code = 3362881979) 712 pg/mL <=125 H OMAYRA (test code = OMAYRA) Biotin has been reported to cause a negative bias, interpret results relative to patient's use of biotin. 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 METABOLIC PANEL (02937)2023-01-31 21:10:01* Test Item Value Reference Range Interpretation Comme nts NA (test code = 0435504849) 142 mmol/L 135-145 K (test code = 5833738669) 4.7 mmol/L 3.5-5.0 CL (test code = 4667475236) 99 mmol/L 98-108 CO2 TOTAL (test code = 3799091757) 37 mmol/L 23-31 H AGAP (test code = 9733737026) 6 2-16 BUN (test code = 2308700950) 30 mg/dL 7-23 H GLUCOSE (test code = 0412282367) 100 mg/dL 70-110 CREATININE (test code = 5754212693) 0.61 mg/dL 0.60-1.25 TOTAL BILI (test code = 4837316930) 0.6 mg/dL 0.1-1.1 CALCIUM (test code = 0955937405) 8.8 mg/dL 8.6-10.6 T PROTEIN (test code = 2602007597) 5.9 g/dL 6.3-8.2 L ALBUMIN (test code = 2257217349) 3.5 g/dL 3.5-5.0 ALK PHOS (test code = 7329189580) 42 U/L 34-122 ALTv (test code = 1742-6) 16 U/L 5-50 AST(SGOT) (test code = 5965611963) 12 U/L 13-40 L eGFR (test code = 1453170032) 133.1 mL/min/1.73m2 OMAYRA (test code = OMAYRA) [...] imaging tests). Lab Interpretation (test code = 79595-6) Abnormal [facility] WITH [id number] 20:59:58* Test Item Value Reference Range Interpretation [...] g/dL 31.2-35.0 L RDW-SD (test code = 68993-7) 61.6 fL 38.5-51.6 H RDW-CV (test code = 788-0) 16.2 % 12.1-15.4 H PLT (test code = 777-3) 250 See_Comment [Automated message] The system which generated this result transmitted reference range: 150 - 328 10*3/?L. The reference range was not used to interpret this result as normal/abnormal. MPV (test code = 73623-9) 10.5 fL 9.8-13.0 NRBC/100 WBC (test code = 1111747274) 0.0 See_Comment [Automated message] The system which generated this result transmitted reference range: 0.0 - 10.0 /100 WBCs. The reference range was not used to interpret this result as normal/abnormal. NRBC x10^3 (test code = 1473657345) See_Comment [Automated message] The system which generated this result transmitted reference range: 10*3/?L. The reference range was not used to interpret this result as normal/abnormal. GRAN MAT (NEUT) % (test code = 770-8) 90.9 % IMM GRAN % (test code = 8405041442) 1.20 % LYMPH % (test code = 736-9) 3.9 % MONO % (test code = 5905-5) 3.8 % EOS % (test code = 713-8) 0.0 % BASO % (test code = 706-2) 0.2 % GRAN MAT x10^3(ANC) (test code = 1384571632) 11.83 10*3/uL 1.99-6.95 H IMM GRAN x10^3 (test code = 5124243916) 0.16 10*3/uL 0.00-0.06 H LYMPH x10^3 (test code = 731-0) 0.51 10*3/uL 1.09-3.23 L MONO x10^3 (test code = 742-7) 0.49 10*3/uL 0.36-1.02 EOS x10^3 (test code = 711-2) 0.06-0.53 L BASO x10^3 (test code = 704-7) 0.03 10*3/uL 0.01-0.09 Lab Interpretation (test code = 77257-1) Abnormal [facility] [id number] 11:16:36* Test Item Value Reference Range Interpretation Comme nts TROPONIN I (test code = 5844220921) 0.002 ng/mL <=0.034 OMAYRA (test code = [...] of biotin. Lab Interpretation (test code = 39225-0) Normal [facility] [id number] 11:13:18* Test Item Value Reference Range Interpretation Comme nts NT-proBNP (test code = 5811629466) 112 pg/mL <=125 OMAYRA (test code = OMAYRA) Biotin has been reported to cause a negative bias, interpret results relative to patient's use of biotin. Lab Interpretation (test code = 52629-8) Normal [facility] METABOLIC PANEL (NA, K, CL, CO2, GLUCOSE, BUN, CREATININE, CA)2023-01-27 11:04:56* Test Item Value Reference Range Interpretation Comme nts NA (test code = 4665412345) 136 mmol/L 135-145 K (test code = 3882810063) 4.1 mmol/L 3.5-5.0 CL (test code = 2269363716) 96 mmol/L 98-108 L CO2 TOTAL (test code = 2343923702) 34 mmol/L 23-31 H AGAP (test code = 5387274650) 6 2-16 BUN (test code = 0121556890) 22 mg/dL 7-23 GLUCOSE (test code = 3812483517) 117 mg/dL 70-110 H CREATININE (test code = 3912762809) 0.55 mg/dL 0.60-1.25 L CALCIUM (test code = 6058071670) 8.4 mg/dL 8.6-10.6 L eGFR (test code = 2827233088) 150.0 mL/min/1.73m2 OMAYRA (test code = OAMYRA) Association of [...] imaging tests). Lab Interpretation (test code = 88151-5) Abnormal [facility] WITH [id number] 10:38:33* Test Item Value Reference Range Interpretation Comme nts WBC (test code = 6690-2) 9.56 See_Comment [Automated Tamion] The system which generated this result transmitted reference range: 4.20 - 10.70 10*3/?L. The reference range was not used to interpret this result as normal/abnormal. RBC (test code = 789-8) 4.31 See_Comment [Automated Tamion] The system which generated this result transmitted [...] 31.8 g/dL 31.2-35.0 RDW-SD (test code = 59185-7) 56.7 fL 38.5-51.6 H RDW-CV (test code = 788-0) 15.3 % 12.1-15.4 PLT (test code = 777-3) 220 See_Comment [Automated Tamion] The system which generated this result transmitted reference range: 150 - 328 10*3/?L. The reference range was not used to interpret this result as normal/abnormal. MPV (test code = 61957-1) 10.6 fL 9.8-13.0 NRBC/100 WBC (test code = 8625981640) 0.0 See_Comment [Automated me ssage] The system which generated this result transmitted reference range: 0.0 - 10.0 /100 WBCs. The reference range was not used to interpret this result as normal/abnormal. NRBC x10^3 (test code = 0791013406) See_Comment [Automated messa ge] The system which generated this result transmitted reference range: 10*3/?L. The reference range was not used to interpret this result as normal/abnormal. GRAN MAT (NEUT) % (test code = 770-8) 60.0 % IMM GRAN % (test code = 7522238782) 0.70 % LYMPH % (test code = 736-9) 26.5 % MONO % (test code = 5905-5) 11.4 % EOS % (test code = 713-8) 0.9 % BASO % (test code = 706-2) 0.5 % GRAN MAT x10^3(ANC) (test code = 3470013364) 5.73 10*3/uL 1.99-6.95 IMM GRAN x10^3 (test code = 0839544499) 0.07 10*3/uL 0.00-0.06 H LYMPH x10^3 (test code = 731-0) 2.53 10*3/uL 1.09-3.23 MONO x10^3 (test code = 742-7) 1.09 10*3/uL 0.36-1.02 H EOS x10^3 (test code = 711-2) 0.09 10*3/uL 0.06-0.53 BASO x10^3 (test code = 704-7) 0.05 10*3/uL 0.01-0.09 Lab Interpretation (test code = 64197-0) [facility] DallasAMMON[facility], [id number] 18:51:59* Test Item Value Reference Range Interpretation Comme nts AMMONIA (test code = 8079132469) 9-33 L Lab Interpretation (test cod e = 63104-8) [facility]normal [facility] [place] ABG + LACTIC [id number] 18:40:53* Test Item Value Reference Range Interpretation Comme nts PH (test code = 2) 7.43 7.35-7.45 PCO2 (test code = 8419017690) 53 See_Comment H [Automated messa ge] The system which generated this result transmitted reference range: 35 - 45 mmHg. The reference range was not used to interpret this result as normal/abnormal. PO2 (test code = 4576816408) 49 See_Comment L [Automated messa ge] The system which generated this result transmitted reference range: 80 - 100 mmHg. The reference range was not used to interpret this result as normal/abnormal. HCO3 (test code = 5868455210) 34 See_Comment H [Automated messa ge] The system which generated this result transmitted reference range: 22 - 26 mEq/L. The reference range was not used to interpret this result as normal/abnormal. BE (test code = 6428509492) 7.8 See_Comment H [Automated messa ge] The system which generated this result transmitted reference range: -3.0 - 3.0 mEq/L. The reference range was not used to interpret this result as normal/abnormal. LACTIC ACID (test code = 4661099625) 0.92 mmol/L 0.50-2.20 Lab Interpretation (test code = 45646-8) [facility]normal [facility] DallasTroponin [id number] 18:28:26* Test Item Value Reference Range Interpretation Comme nts TROPONIN I (test code = 4206635118) 0.003 ng/mL <=0.034 OMAYRA (test code = [...] of biotin. Lab Interpretation (test code = 46755-9) Normal [facility]-TERMIN[facility] [id number] 18:25:29* Test Item Value Reference Range Interpretation Comme nts NT-proBNP (test code = 3490048921) 376 pg/mL <=125 H OMAYRA (test code = OMAYRA) Biotin has been reported to cause a negative bias, interpret results relative to patient's use of biotin. Lab Interpretation (test code = 83463-7) Abnormal [facility] Metabolic Panel (18632)2023-01-24 18:24:03* Test Item Value Reference Range Interpretation Comme nts NA (test code = 0137813543) 135 mmol/L 135-145 K (test code = 6172998964) 4.0 mmol/L 3.5-5.0 CL (test code = 4118698983) 90 mmol/L 98-108 L CO2 TOTAL (test code = 8145955774) 43 mmol/L 23-31 H AGAP (test code = 5260728226) 2 2-16 BUN (test code = 2494226755) 12 mg/dL 7-23 GLUCOSE (test code = 1052776448) 92 mg/dL 70-110 CREATININE (test code = 1206823200) 0.58 mg/dL 0.60-1.25 L TOTAL BILI (test code = 1408178878) 1.3 mg/dL 0.1-1.1 H CALCIUM (test code = 6527518315) 8.6 mg/dL 8.6-10.6 T PROTEIN (test code = 6962915397) 6.0 g/dL 6.3-8.2 L ALBUMIN (test code = 4047149056) 3.6 g/dL 3.5-5.0 ALK PHOS (test code = 4425873112) 52 U/L 34-122 ALTv (test code = 1742-6) 17 U/L 5-50 AST(SGOT) (test code = 1070157457) 10 U/L 13-40 L eGFR (test code = 8202356337) 141.1 mL/min/1.73m2 OMAYRA (test code = OMAYRA) [...] imaging tests). Lab Interpretation (test code = 58794-2) [facility]normal [facility] [place]ETH[facility]OL2023-[facility]-08 18:23:38 ALCOHOL<10mg/dL01/24/2023 1:23 PM [facility]<10 Boijsdev79-637 Toxic>100 Depression of FOOD OPERATIONS MANAGER>400 Fatalities [facility]ortedUn[facility] AllianceCBC with Bcvweehznxez6483-76-00 18:09:00* Test Item Value Reference Range Interpretation Comme nts WBC (test code = 6690-2) 7.84 See_Comment [Automated [employer]] The system which generated this result transmitted reference range: 4.20 - 10.70 10*3/?L. The reference range was not used to interpret this result as normal/abnormal. RBC (test code = 789-8) 4.46 See_Comment [Automated [employer]] The system which generated this result transmitted [...] g/dL 31.2-35.0 L RDW-SD (test code = 94417-1) 59.7 fL 38.5-51.6 H RDW-CV (test code = 788-0) 15.8 % 12.1-15.4 H PLT (test code = 777-3) 239 See_Comment [Automated [employer]] The system which generated this result transmitted reference range: 150 - 328 10*3/?L. The reference range was not used to interpret this result as normal/abnormal. MPV (test code = 54785-8) 10.5 fL 9.8-13.0 NRBC/100 WBC (test code = 9447380249) 0.0 See_Comment [Automated [employer]] The system which generated this result transmitted reference range: 0.0 - 10.0 /100 WBCs. The reference range was not used to interpret this result as normal/abnormal. NRBC x10^3 (test code = 6330448550) See_Comment [Automated [employer]] The system which generated this result transmitted reference range: 10*3/?L. The reference range was not used to interpret this result as normal/abnormal. GRAN MAT (NEUT) % (test code = 770-8) 64.5 % IMM GRAN % (test code = 3533222798) 0.40 % LYMPH % (test code = 736-9) 23.1 % MONO % (test code = 5905-5) 9.8 % EOS % (test code = 713-8) 1.8 % BASO % (test code = 706-2) 0.4 % GRAN MAT x10^3(ANC) (test code = 0337629185) 5.06 10*3/uL 1.99-6.95 IMM GRAN x10^3 (test code = 7415522619) 0.03 10*3/uL 0.00-0.06 LYMPH x10^3 (test code = 731-0) 1.81 10*3/uL 1.09-3.23 MONO x10^3 (test code = 742-7) 0.77 10*3/uL 0.36-1.02 EOS x10^3 (test code = 711-2) 0.14 10*3/uL 0.06-0.53 BASO x10^3 (test code = 704-7) 0.03 10*3/uL 0.01-0.09 Lab Interpretation (test code = 75353-6) Abnormal [facility]. METABOLIC PANEL (15880)2023-01-21 21:33:50* Test Item Value Reference Range Interpretation Comme nts NA (test code = 0421710125) 136 mmol/L 135-145 K (test code = 1598697337) 4.3 mmol/L 3.5-5.0 CL (test code = 6013892273) 95 mmol/L 98-108 L CO2 TOTAL (test code = 4263985450) 38 mmol/L 23-31 H AGAP (test code = 7058828364) 3 2-16 BUN (test code = 3721310032) 17 mg/dL 7-23 GLUCOSE (test code = 0848333442) 102 mg/dL 70-110 CREATININE (test code = 3859165545) 0.62 mg/dL 0.60-1.25 TOTAL BILI (test code = 5575507131) 0.8 mg/dL 0.1-1.1 CALCIUM (test code = 5765650102) 7.8 mg/dL 8.6-10.6 L T PROTEIN (test code = 6311163925) 4.9 g/dL 6.3-8.2 L ALBUMIN (test code = 9870049702) 3.0 g/dL 3.5-5.0 L ALK PHOS (test code = 7091196681) 45 U/L 34-122 ALTv (test code = 1742-6) 13 U/L 5-50 AST(SGOT) (test code = 6231240249) 11 U/L 13-40 L eGFR (test code = 0140484231) 130.6 mL/min/1.73m2 OMAYRA (test code = OMAYRA) [...] imaging tests). Lab Interpretation (test code = 02162-9) Abnormal [facility] DallasTRANGIENIN [id number] 21:11:45* Test Item Value Reference Range Interpretation Comme nts TROPONIN I (test code = 5491811680) 0.019 ng/mL <=0.034 OMAYRA (test code = [...] of biotin. Lab Interpretation (test code = 14423-6) Normal [facility] DallasN-TERMINAL STT-[id number] 21:08:47* Test Item Value Reference Range Interpretation Comme nts NT-proBNP (test code = 4410442346) 266 pg/mL <=125 H Hemolyzed specimen OMAYRA (test code = OMAYRA) Biotin has been reported to cause a negative bias, interpret results relative to patient's use of biotin. Lab Interpretation (test code = 88136-0) Abnormal [facility] DallasCB WITH [id number] 20:40:24* Test Item Value Reference Range Interpretation Comme nts WBC (test code = 6690-2) 6.78 See_Comment [Automated [employer]] The system which generated this result transmitted reference range: 4.20 - 10.70 10*3/?L. The reference range was not used to interpret this result as normal/abnormal. RBC (test code = 789-8) 4.47 See_Comment [Automated [employer]] The system which generated this result transmitted [...] g/dL 31.2-35.0 L RDW-SD (test code = 30863-7) 60.4 fL 38.5-51.6 H RDW-CV (test code = 788-0) 16.2 % 12.1-15.4 H PLT (test code = 777-3) 215 See_Comment [Automated [employer]] The system which generated this result transmitted reference range: 150 - 328 10*3/?L. The reference range was not used to interpret this result as normal/abnormal. MPV (test code = 53725-6) 10.9 fL 9.8-13.0 NRBC/100 WBC (test code = 6955676848) 0.0 See_Comment [Automated me ssage] The system which generated this result transmitted reference range: 0.0 - 10.0 /100 WBCs. The reference range was not used to interpret this result as normal/abnormal. NRBC x10^3 (test code = 0010485359) See_Comment [Automated messa ge] The system which generated this result transmitted reference range: 10*3/?L. The reference range was not used to interpret this result as normal/abnormal. GRAN MAT (NEUT) % (test code = 770-8) 75.4 % IMM GRAN % (test code = 3779532854) 0.40 % LYMPH % (test code = 736-9) 15.3 % MONO % (test code = 5905-5) 7.7 % EOS % (test code = 713-8) 0.9 % BASO % (test code = 706-2) 0.3 % GRAN MAT x10^3(ANC) (test code = 1086647032) 5.11 10*3/uL 1.99-6.95 IMM GRAN x10^3 (test code = 5387481798) 0.03 10*3/uL 0.00-0.06 LYMPH x10^3 (test code = 731-0) 1.04 10*3/uL 1.09-3.23 L MONO x10^3 (test code = 742-7) 0.52 10*3/uL 0.36-1.02 EOS x10^3 (test code = 711-2) 0.06 10*3/uL 0.06-0.53 BASO x10^3 (test code = 704-7) 0.01-0.09 Lab Interpretation (test code = 24883-0) Abnormal [facility] DallasN-Terminal Vht-[id number] 08:49:53* Test Item Value Reference Range Interpretation Comme nts NT-proBNP (test code = 5340001572) 158 pg/mL <=125 H OMAYRA (test code = OMAYRA) Biotin has been reported to cause a negative bias, interpret results relative to patient's use of biotin. Lab Interpretation (test code = 68135-7) Abnormal [facility] DallasD-Ipdgs8549-22-44 08:44:10* Test Item Value Reference Range Interpretation Comments D-DIMER (test code = 1922877434) See_Comment [Automated message] The system which generated [...] a diagnosis. Lab Interpretation (test code = 81912-2) Normal [facility] METABOLIC PANEL (NA, K, CL, CO2, GLUCOSE, BUN, CREATININE, CA)2023-01-19 08:41:13* Test Item Value Reference Range Interpretation Comme nts NA (test code = 0391043201) 134 mmol/L 135-145 L K (test code = 1102268070) 5.3 mmol/L 3.5-5.0 H CL (test code = 0288306150) 91 mmol/L 98-108 L CO2 TOTAL (test code = 5382124738) 40 mmol/L 23-31 H AGAP (test code = 7769359429) 3 2-16 BUN (test code = 5047974729) 14 mg/dL 7-23 GLUCOSE (test code = 3804204083) 125 mg/dL 70-110 H CREATININE (test code = 0014284987) 0.64 mg/dL 0.60-1.25 CALCIUM (test code = 5147246200) 8.5 mg/dL 8.6-10.6 L eGFR (test code = 1133312013) 125.9 mL/min/1.73m2 OMAYRA (test code = OMAYRA) [...] imaging tests). Lab Interpretation (test code = 29530-9) Abnormal [facility] WITH [id number] 08:27:33* Test Item Value Reference Range Interpretation Comme nts WBC (test code = 6690-2) 10.04 See_Comment [Automated Tamion] The system which generated this result transmitted reference range: 4.20 - 10.70 10*3/?L. The reference range was not used to interpret this result as normal/abnormal. RBC (test code = 789-8) 4.35 See_Comment [Automated [employer]] The system which generated this result transmitted [...] 31.2 g/dL 31.2-35.0 RDW-SD (test code = 48912-5) 58.4 fL 38.5-51.6 H RDW-CV (test code = 788-0) 15.9 % 12.1-15.4 H PLT (test code = 777-3) 211 See_Comment [Automated messa ge] The system which generated this result transmitted reference range: 150 - 328 10*3/?L. The reference range was not used to interpret this result as normal/abnormal. MPV (test code = 32667-9) 10.2 fL 9.8-13.0 NRBC/100 WBC (test code = 3025917034) 0.0 See_Comment [Automated [employer]] The system which generated this result transmitted reference range: 0.0 - 10.0 /100 WBCs. The reference range was not used to interpret this result as normal/abnormal. NRBC x10^3 (test code = 7894535417) See_Comment [Automated [employer]] The system which generated this result transmitted reference range: 10*3/?L. The reference range was not used to interpret this result as normal/abnormal. GRAN MAT (NEUT) % (test code = 770-8) 81.2 % IMM GRAN % (test code = 3231510388) 0.50 % LYMPH % (test code = 736-9) 10.1 % MONO % (test code = 5905-5) 7.5 % EOS % (test code = 713-8) 0.5 % BASO % (test code = 706-2) 0.2 % GRAN MAT x10^3(ANC) (test code = 8145678371) 8.16 10*3/uL 1.99-6.95 H IMM GRAN x10^3 (test code = 2722328640) 0.05 10*3/uL 0.00-0.06 LYMPH x10^3 (test code = 731-0) 1.01 10*3/uL 1.09-3.23 L MONO x10^3 (test code = 742-7) 0.75 10*3/uL 0.36-1.02 EOS x10^3 (test code = 711-2) 0.05 10*3/uL 0.06-0.53 L BASO x10^3 (test code = 704-7) 0.01-0.09 Lab Interpretation (test code = 34042-1) Abnormal [facility] DallasTROPONIN [id number] 12:09:33* Test Item Value Reference Range Interpretation Comme nts TROPONIN I (test code = 5677779795) 0.004 ng/mL <=0.034 OMAYRA (test code = [...] of biotin. Lab Interpretation (test code = 08662-4) Normal [facility] DallasN-TERMINAL TEO-[id number] 12:06:16* Test Item Value Reference Range Interpretation Comme nts NT-proBNP (test code = 8197102712) 135 pg/mL <=125 H OMAYRA (test code = OMAYRA) Biotin has been reported to cause a negative bias, interpret results relative to patient's use of biotin. Lab Interpretation (test code = 26213-5) Abnormal [facility] DallasCOMP. Metabolic Panel (60659)2023-01-17 11:57:36* Test Item Value Reference Range Interpretation Comme nts NA (test code = 8673216928) 133 mmol/L 135-145 L K (test code = 9719236625) 5.0 mmol/L 3.5-5.0 CL (test code = 4241732334) 91 mmol/L 98-108 L CO2 TOTAL (test code = 7397766498) 33 mmol/L 23-31 H AGAP (test code = 7090072451) 9 2-16 BUN (test code = 8779847452) 10 mg/dL 7-23 GLUCOSE (test code = 4092155392) 104 mg/dL 70-110 CREATININE (test code = 0240063933) 0.63 mg/dL 0.60-1.25 TOTAL BILI (test code = 2588124561) 1.2 mg/dL 0.1-1.1 H CALCIUM (test code = 7563935248) 9.0 mg/dL 8.6-10.6 T PROTEIN (test code = 4806069392) 6.9 g/dL 6.3-8.2 ALBUMIN (test code = 5568762674) 4.4 g/dL 3.5-5.0 ALK PHOS (test code = 0608616643) 76 U/L 34-122 ALTv (test code = 1742-6) 13 U/L 5-50 AST(SGOT) (test code = 5254356966) 13 U/L 13-40 eGFR (test code = 1015093968) 128.2 mL/min/1.73m2 OMAYRA (test code = OMAYRA) [...] imaging tests). Lab Interpretation (test code = 48598-6) Abnormal [facility] with [id number] 11:30:52* Test Item Value Reference Range Interpretation Comme nts WBC (test code = 6690-2) 9.66 See_Comment [Automated [employer]] The system which generated this result transmitted reference range: 4.20 - 10.70 10*3/?L. The reference range was not used to interpret this result as normal/abnormal. RBC (test code = 789-8) 5.00 See_Comment [Automated [employer]] The system which generated this result [...] 31.2 g/dL 31.2-35.0 RDW-SD (test code = 45640-7) 56.6 fL 38.5-51.6 H RDW-CV (test code = 788-0) 15.4 % 12.1-15.4 PLT (test code = 777-3) 261 See_Comment [Automated [employer]] The system which generated this result transmitted reference range: 150 - 328 10*3/?L. The reference range was not used to interpret this result as normal/abnormal. MPV (test code = 34641-4) 10.4 fL 9.8-13.0 NRBC/100 WBC (test code = 1053973465) 0.0 See_Comment [Automated [employer]] The system which generated this result transmitted reference range: 0.0 - 10.0 /100 WBCs. The reference range was not used to interpret this result as normal/abnormal. NRBC x10^3 (test code = 4506062215) See_Comment [Automated messa ge] The system which generated this result transmitted reference range: 10*3/?L. The reference range was not used to interpret this result as normal/abnormal. GRAN MAT (NEUT) % (test code = 770-8) 58.9 % IMM GRAN % (test code = 0008982638) 0.40 % LYMPH % (test code = 736-9) 28.6 % MONO % (test code = 5905-5) 10.5 % EOS % (test code = 713-8) 0.9 % BASO % (test code = 706-2) 0.7 % GRAN MAT x10^3(ANC) (test code = 5203550058) 5.69 10*3/uL 1.99-6.95 IMM GRAN x10^3 (test code = 7481842996) 0.04 10*3/uL 0.00-0.06 LYMPH x10^3 (test code = 731-0) 2.76 10*3/uL 1.09-3.23 MONO x10^3 (test code = 742-7) 1.01 10*3/uL 0.36-1.02 EOS x10^3 (test code = 711-2) 0.09 10*3/uL 0.06-0.53 BASO x10^3 (test code = 704-7) 0.07 10*3/uL 0.01-0.09 Lab Interpretation (test code = 39072-9) [facility]normal [facility] DallasN-TERMINAL PME-[id number] 10:20:57* Test Item Value Reference Range Interpretation Comme nts NT-proBNP (test code = 2219866210) 473 pg/mL <=125 H OMAYRA (test code = OMAYRA) Biotin has been reported to cause a negative bias, interpret results relative to patient's use of biotin. Lab Interpretation (test code = 27904-1) Abnormal [facility] DallasLIPID PANEL (12901)(TOTAL CHOLESTEROL, TRIGLYCERIDES, HDL)2022-12-12 10:18:39* Test Item Value Reference Range Interpretation Comme nts CHOL (test code = 0482701452) 133 mg/dL 120-200 HDL (test code = 9364620743) 38 mg/dL >=40 L HDLC RATIO (test code = 5143445696) 3.5 <=5.0 TRIG (test code = 5552450810) 57 mg/dL 30-170 LDL CHOL (test code = 71380-8) 84 mg/dL <=160 VLDL (test code = 7714607368) 11 mg/dL 5-60 Lab Interpretation (test cod e = 15169-5) [facility]normal [facility] DallasMAGNESIUM2023-03-26 10:18:19* Test Item Value Reference Range Interpretation Comme nts MAGNESIUM (test code = 1222944889) 2.0 mg/dL 1.7-2.4 Lab Interpretation (test cod e = 73538-0) Normal [facility] METABOLIC PANEL (NA, K, CL, CO2, GLUCOSE, BUN, CREATININE, CA)2022-12-12 10:18:14* Test Item Value Reference Range Interpretation Comme nts NA (test code = 0467357819) 130 mmol/L 135-145 L K (test code = 8005126456) 3.7 mmol/L 3.5-5.0 CL (test code = 4984027970) 89 mmol/L 98-108 L CO2 TOTAL (test code = 1641363828) 37 mmol/L 23-31 H AGAP (test code = 8587639470) 4 2-16 BUN (test code = 1222190227) 13 mg/dL 7-23 GLUCOSE (test code = 2022728078) 120 mg/dL 70-110 H CREATININE (test code = 4194620702) 0.56 mg/dL 0.60-1.25 L CALCIUM (test code = 0760110413) 8.3 mg/dL 8.6-10.6 L eGFR (test code = 5152925193) 146.9 mL/min/1.73m2 OMAYRA (test code = OMAYRA) [...] imaging tests). Lab Interpretation (test code = 33973-1) [facility]normal [facility] DallasETH[facility]OL2023-[facility]-25 00:54:58 ALCOHOL<10mg/dL12/10/2022 7:54 PM [facility]<10 Uflztefn74-280 Toxic>100 Depression of FOOD OPERATIONS MANAGER>400 Fatalities ReportedB[facility] – DallasTROPONIN Q4657-03-61 00:50:14* Test Item Value Reference Range Interpretation Comme nts TROPONIN I (test code = 2281102581) 0.006 ng/mL <=0.034 OMAYRA (test code = [...] of biotin. Lab Interpretation (test code = 20660-3) Normal [facility] DallasN-TERMINAL HOA-UFE8924-94-25 00:47:12* Test Item Value Reference Range Interpretation Comme nts NT-proBNP (test code = 5361511748) 291 pg/mL <=125 H OMAYRA (test code = OMAYRA) Biotin has been reported to cause a negative bias, interpret results relative to patient's use of biotin. Lab Interpretation (test code = 03811-3) Abnormal [facility]. METABOLIC PANEL (76261)2022-12-11 00:41:12* Test Item Value Reference Range Interpretation Comme nts NA (test code = 8710316253) 126 mmol/L 135-145 L K (test code = 0474660732) 4.0 mmol/L 3.5-5.0 CL (test code = 0225019192) 82 mmol/L 98-108 L CO2 TOTAL (test code = 6050299005) 40 mmol/L 23-31 H AGAP (test code = 3703544367) 4 2-16 BUN (test code = 1790014184) 16 mg/dL 7-23 GLUCOSE (test code = 8362894583) 97 mg/dL 70-110 CREATININE (test code = 9847309729) 0.67 mg/dL 0.60-1.25 TOTAL BILI (test code = 4693663134) 0.8 mg/dL 0.1-1.1 CALCIUM (test code = 1561252117) 8.5 mg/dL 8.6-10.6 L T PROTEIN (test code = 4712452184) 5.9 g/dL 6.3-8.2 L ALBUMIN (test code = 3465358490) 3.5 g/dL 3.5-5.0 ALK PHOS (test code = 3456847879) 49 U/L 34-122 ALTv (test code = 1742-6) 18 U/L 5-50 AST(SGOT) (test code = 2861187764) 11 U/L 13-40 L eGFR (test code = 1335569323) 119.4 mL/min/1.73m2 OMAYRA (test code = OMAYRA) [...] imaging tests). Lab Interpretation (test code = 67849-2) Abnormal [facility] WITH [id number] 00:29:08* Test Item Value Reference Range Interpretation Comme nts WBC (test code = 6690-2) 10.15 See_Comment [[employer]] The system which generated this result transmitted reference range: 4.20 - 10.70 10*3/?L. The reference range was not used to interpret this result as normal/abnormal. RBC (test code = 789-8) 4.52 See_Comment [[employer]] The system which generated this result transmitted [...] 32.8 g/dL 31.2-35.0 RDW-SD (test code = 62940-9) 46.7 fL 38.5-51.6 RDW-CV (test code = 788-0) 13.6 % 12.1-15.4 PLT (test code = 777-3) 263 See_Comment [Automated messa ge] The system which generated this result transmitted reference range: 150 - 328 10*3/?L. The reference range was not used to interpret this result as normal/abnormal. MPV (test code = 54156-3) 9.7 fL 9.8-13.0 L NRBC/100 WBC (test code = 3193643435) 0.0 See_Comment [Automated [employer]] The system which generated this result transmitted reference range: 0.0 - 10.0 /100 WBCs. The reference range was not used to interpret this result as normal/abnormal. NRBC x10^3 (test code = 0811195468) See_Comment [Automated messa ge] The system which generated this result transmitted reference range: 10*3/?L. The reference range was not used to interpret this result as normal/abnormal. GRAN MAT (NEUT) % (test code = 770-8) 71.6 % IMM GRAN % (test code = 6330683518) 0.90 % LYMPH % (test code = 736-9) 17.6 % MONO % (test code = 5905-5) 8.7 % EOS % (test code = 713-8) 1.0 % BASO % (test code = 706-2) 0.2 % GRAN MAT x10^3(ANC) (test code = 8263904031) 7.27 10*3/uL 1.99-6.95 H IMM GRAN x10^3 (test code = 8276678700) 0.09 10*3/uL 0.00-0.06 H LYMPH x10^3 (test code = 731-0) 1.79 10*3/uL 1.09-3.23 MONO x10^3 (test code = 742-7) 0.88 10*3/uL 0.36-1.02 EOS x10^3 (test code = 711-2) 0.10 10*3/uL 0.06-0.53 BASO x10^3 (test code = 704-7) 0.01-0.09 Lab Interpretation (test code = 41356-3) [facility]normal [facility] DallasLactic Acid Whole Eevjs1295-56-54 00:14:48* Test Item Value Reference Range Interpretation Comme nts LACTIC ACID (test code = 7968992881) 1.30 mmol/L 0.50-2.20 Lab Interpretation (test cod e = 34359-9) Normal [facility] METABOLIC PANEL (NA, K, CL, CO2, GLUCOSE, BUN, CREATININE, CA)2022-12-04 11:06:33* Test Item Value Reference Range Interpretation Comme nts NA (test code = 8360190785) 123 mmol/L 135-145 L K (test code = 2939780974) 3.8 mmol/L 3.5-5.0 CL (test code = 4024248835) 86 mmol/L 98-108 L CO2 TOTAL (test code = 5706583735) 36 mmol/L 23-31 H AGAP (test code = 2744535947) 1 2-16 L BUN (test code = 8816890651) 22 mg/dL 7-23 GLUCOSE (test code = 3421826834) 195 mg/dL 70-110 H CREATININE (test code = 6579115367) 0.76 mg/dL 0.60-1.25 CALCIUM (test code = 5253135899) 8.2 mg/dL 8.6-10.6 L eGFR (test code = 6924708682) 103.3 mL/min/1.73m2 OMAYRA (test code = OMAYRA) [...] imaging tests). Lab Interpretation (test code = 80837-7) Abnormal [facility] WITH [id number] 10:54:29* Test Item Value Reference Range Interpretation Comme nts WBC (test code = 6690-2) 8.54 See_Comment [Automated [employer]] The system which generated this result transmitted reference range: 4.20 - 10.70 10*3/?L. The reference range was not used to interpret this result as normal/abnormal. RBC (test code = 789-8) 4.17 See_Comment L [Automated [employer]] The system which generated this result transmitted [...] 34.1 g/dL 31.2-35.0 RDW-SD (test code = 45453-2) 44.1 fL 38.5-51.6 RDW-CV (test code = 788-0) 13.6 % 12.1-15.4 PLT (test code = 777-3) 247 See_Comment [[employer]ated [employer]] The system which generated this result transmitted reference range: 150 - 328 10*3/?L. The reference range was not used to interpret this result as normal/abnormal. MPV (test code = 03493-2) 9.5 fL 9.8-13.0 L NRBC/100 WBC (test code = 0784178377) 0.0 See_Comment [Automated [employer]age] The system which generated this result transmitted reference range: 0.0 - 10.0 /100 WBCs. The reference range was not used to interpret this result as normal/abnormal. NRBC x10^3 (test code = 3934282216) See_Comment [Automated [employer]] The system which generated this result transmitted reference range: 10*3/?L. The reference range was not used to interpret this result as normal/abnormal. GRAN MAT (NEUT) % (test code = 770-8) 93.0 % IMM GRAN % (test code = 1754692800) 0.90 % LYMPH % (test code = 736-9) 3.2 % MONO % (test code = 5905-5) 2.9 % EOS % (test code = 713-8) 0.0 % BASO % (test code = 706-2) 0.0 % GRAN MAT x10^3(ANC) (test code = 2983940397) 7.94 10*3/uL 1.99-6.95 H IMM GRAN x10^3 (test code = 7732566058) 0.08 10*3/uL 0.00-0.06 H LYMPH x10^3 (test code = 731-0) 0.27 10*3/uL 1.09-3.23 L MONO x10^3 (test code = 742-7) 0.25 10*3/uL 0.36-1.02 L EOS x10^3 (test code = 711-2) 0.06-0.53 L BASO x10^3 (test code = 704-7) 0.01-0.09 Lab Interpretation (test code = 89355-3) Abnormal [facility] Metabolic Panel (NA, K, CL, CO2, GLUCOSE, BUN, CREATININE, CA)2022-12-03 10:44:53* Test Item Value Reference Range Interpretation Comme nts NA (test code = 9920491536) 126 mmol/L 135-145 L K (test code = 8891555467) 4.0 mmol/L 3.5-5.0 Slight hemolysis CL (test code = 8911605832) 89 mmol/L 98-108 L CO2 TOTAL (test code = 3062311776) 32 mmol/L 23-31 H AGAP (test code = 9265989262) 5 2-16 BUN (test code = 5147634942) 15 mg/dL 7-23 Slight hemolysis GLUCOSE (test code = 1816184126) 115 mg/dL 70-110 H CREATININE (test code = 1077329699) 0.63 mg/dL 0.60-1.25 CALCIUM (test code = 9479817357) 7.7 mg/dL 8.6-10.6 L eGFR (test code = 9293770827) 128.2 mL/min/1.73m2 OMAYRA (test code = OMAYRA) [...] imaging tests). Lab Interpretation (test code = 10950-6) [facility] Dallas[facility] [id number] 10:44:53* Test Item Value Reference Range Interpretation Comme nts MAGNESIUM (test code = 4134618348) 1.6 mg/dL 1.7-2.4 L Lab Interpretation (test cod e = 72746-9) [facility]normal [facility] Dallas[facility] with [id number] 10:39:13* Test Item Value Reference Range Interpretation [...] 33.1 g/dL 31.2-35.0 RDW-SD (test code = 27074-7) 45.4 fL 38.5-51.6 RDW-CV (test code = 788-0) 13.6 % 12.1-15.4 PLT (test code = 777-3) 254 See_Comment [Automated message] The system which generated this result transmitted reference range: 150 - 328 10*3/?L. The reference range was not used to interpret this result as normal/abnormal. MPV (test code = 17388-5) 10.2 fL 9.8-13.0 NRBC/100 WBC (test code = 5257503125) 0.0 See_Comment [Automated message] The system which generated this result transmitted reference range: 0.0 - 10.0 /100 WBCs. The reference range was not used to interpret this result as normal/abnormal. NRBC x10^3 (test code = 8155082478) See_Comment [Automated message] The system which generated this result transmitted reference range: 10*3/?L. The reference range was not used to interpret this result as normal/abnormal. GRAN MAT (NEUT) % (test code = 770-8) 90.0 % IMM GRAN % (test code = 7141829155) 0.90 % LYMPH % (test code = 736-9) 5.9 % MONO % (test code = 5905-5) 2.8 % EOS % (test code = 713-8) 0.2 % BASO % (test code = 706-2) 0.2 % GRAN MAT x10^3(ANC) (test code = 7329601396) 10.27 10*3/uL 1.99-6.95 H IMM GRAN x10^3 (test code = 8733424563) 0.10 10*3/uL 0.00-0.06 H LYMPH x10^3 (test code = 731-0) 0.67 10*3/uL 1.09-3.23 L MONO x10^3 (test code = 742-7) 0.32 10*3/uL 0.36-1.02 L EOS x10^3 (test code = 711-2) 0.06-0.53 L BASO x10^3 (test code = 704-7) 0.01-0.09 Lab Interpretation (test code = 33273-3) Abnormal [facility] METABOLIC PANEL (NA, K, CL, CO2, GLUCOSE, BUN, CREATININE, CA)2022-12-02 06:20:42* Test Item Value Reference Range Interpretation Comme nts NA (test code = 2243883725) 124 mmol/L 135-145 L K (test code = 4447905140) 4.5 mmol/L 3.5-5.0 CL (test code = 2975455230) 78 mmol/L 98-108 L CO2 TOTAL (test code = 3103040898) 37 mmol/L 23-31 H AGAP (test code = 7013529652) 9 2-16 BUN (test code = 4807169938) 14 mg/dL 7-23 GLUCOSE (test code = 3490552628) 93 mg/dL 70-110 CREATININE (test code = 5563241838) 0.71 mg/dL 0.60-1.25 CALCIUM (test code = 2628856431) 9.1 mg/dL 8.6-10.6 eGFR (test code = 8585170838) 111.7 mL/min/1.73m2 OMAYRA (test code = OMAYRA) [...] imaging tests). Lab Interpretation (test code = 19772-5) Abnormal [facility] DallasNELA [id number] 12:22:32* Test Item Value Reference Range Interpretation Comme nts TROPONIN I (test code = 0206567829) 0.008 ng/mL <=0.034 OMAYRA (test code = [...] of biotin. Lab Interpretation (test code = 42382-2) Normal [facility] METABOLIC PANEL (NA, K, CL, CO2, GLUCOSE, BUN, CREATININE, CA)2022-12-01 12:11:11* Test Item Value Reference Range Interpretation Comme [facility] NA (test code = 2127828514) 124 mmol/L 135-145 L K (test code = 3049056876) 4.2 mmol/L 3.5-5.0 CL (test code = 1354996461) 79 mmol/L 98-108 L CO2 TOTAL (test code = 2047562612) 37 mmol/L 23-31 H AGAP (test code = 8013963531) 8 2-16 BUN (test code = 1865937369) 16 mg/dL 7-23 GLUCOSE (test code = 5151970087) 105 mg/dL 70-110 CREATININE (test code = 5258105012) 0.67 mg/dL 0.60-1.25 CALCIUM (test code = 8620299382) 8.6 mg/dL 8.6-10.6 eGFR (test code = 2731445153) 119.4 mL/min/1.73m2 OMAYRA (test code = OMAYRA) [...] imaging tests). Lab Interpretation (test code = 73537-5) Abnormal [facility] WITH [id number] 11:59:32* Test Item Value Reference Range Interpretation [...] 32.9 g/dL 31.2-35.0 RDW-SD (test code = 96884-0) 43.8 fL 38.5-51.6 RDW-CV (test code = 788-0) 13.2 % 12.1-15.4 PLT (test code = 777-3) 208 See_Comment [Automated message] The system which generated this result transmitted reference range: 150 - 328 10*3/?L. The reference range was not used to interpret this result as normal/abnormal. MPV (test code = 48891-7) 9.8 fL 9.8-13.0 NRBC/100 WBC (test code = 4530320583) 0.0 See_Comment [Automated message] The system which generated this result transmitted reference range: 0.0 - 10.0 /100 WBCs. The reference range was not used to interpret this result as normal/abnormal. NRBC x10^3 (test code = 1184374244) See_Comment [Automated message] The system which generated this result transmitted reference range: 10*3/?L. The reference range was not used to interpret this result as normal/abnormal. GRAN MAT (NEUT) % (test code = 770-8) 85.9 % IMM GRAN % (test code = 8531745952) 0.50 % LYMPH % (test code = 736-9) 6.8 % MONO % (test code = 5905-5) 6.3 % EOS % (test code = 713-8) 0.3 % BASO % (test code = 706-2) 0.2 % GRAN MAT x10^3(ANC) (test code = 9322414381) 10.44 10*3/uL 1.99-6.95 H IMM GRAN x10^3 (test code = 8448559834) 0.06 10*3/uL 0.00-0.06 LYMPH x10^3 (test code = 731-0) 0.83 10*3/uL 1.09-3.23 L MONO x10^3 (test code = 742-7) 0.77 10*3/uL 0.36-1.02 EOS x10^3 (test code = 711-2) 0.04 10*3/uL 0.06-0.53 L BASO x10^3 (test code = 704-7) 0.03 10*3/uL 0.01-0.09 Lab Interpretation (test code = 14914-6) [facility]normal [facility] (NA, K, CL, CO2, GLUCOSE, BUN, CREATININE, CA)2022-11-28 17:17:23* Test Item Value Reference Range Interpretation Comme nts NA (test code = 9567527866) 120 mmol/L 135-145 L K (test code = 8563861755) 4.3 mmol/L 3.5-5.0 CL (test code = 1453911996) 77 mmol/L 98-108 L CO2 TOTAL (test code = 3702276699) 40 mmol/L 23-31 H AGAP (test code = 2912492327) 3 2-16 BUN (test code = 2361436445) 15 mg/dL 7-23 GLUCOSE (test code = 4719607982) 151 mg/dL 70-110 H CREATININE (test code = 0573027170) 0.63 mg/dL 0.60-1.25 CALCIUM (test code = 2246379229) 8.2 mg/dL 8.6-10.6 L eGFR (test code = 4856564112) 128.2 mL/min/1.73m2 OMAYRA (test code = OMAYRA) [...] imaging tests). Lab Interpretation (test code = 96818-7) [facility]normal [facility]2023-03-12 06:54:10* Test Item Value Reference Range Interpretation Comme nts MAGNESIUM (test code = 4020163526) 1.6 mg/dL 1.7-2.4 L Lab Interpretation (test cod e = 21865-8) [facility]normal [facility] (NA, K, CL, CO2, GLUCOSE, BUN, CREATININE, CA)2022-11-28 01:29:53* Test Item Value Reference Range Interpretation Comme nts NA (test code = 6913866340) 120 mmol/L 135-145 L K (test code = 3444365255) 3.9 mmol/L 3.5-5.0 CL (test code = 2793173961) 77 mmol/L 98-108 L CO2 TOTAL (test code = 9351283861) 36 mmol/L 23-31 H AGAP (test code = 0501937308) 7 2-16 BUN (test code = 5551165386) 17 mg/dL 7-23 GLUCOSE (test code = 3181625104) 85 mg/dL 70-110 CREATININE (test code = 9248444244) 0.76 mg/dL 0.60-1.25 CALCIUM (test code = 3174709637) 8.3 mg/dL 8.6-10.6 L eGFR (test code = 0695827678) 103.3 mL/min/1.73m2 OMAYRA (test code = OMAYRA) [...] imaging tests). Lab Interpretation (test code = 38465-3) Abnormal [facility] METABOLIC PANEL (NA, K, CL, CO2, GLUCOSE, BUN, CREATININE, CA)2022-11-27 20:36:26* Test Item Value Reference Range Interpretation Comme nts NA (test code = 6258917079) 122 mmol/L 135-145 L K (test code = 9135068948) 3.9 mmol/L 3.5-5.0 CL (test code = 3168726631) 79 mmol/L 98-108 L CO2 TOTAL (test code = 2826238127) 37 mmol/L 23-31 H AGAP (test code = 9712221289) 6 2-16 BUN (test code = 2599157270) 17 mg/dL 7-23 GLUCOSE (test code = 6223537363) 113 mg/dL 70-110 H CREATININE (test code = 1304890586) 0.78 mg/dL 0.60-1.25 CALCIUM (test code = 0958160940) 7.8 mg/dL 8.6-10.6 L eGFR (test code = 1533271888) 100.2 mL/min/1.73m2 OMAYRA (test code = OMAYRA) [...] imaging tests). Lab Interpretation (test code = 38820-3) Abnormal [facility] DallasGLYCOSYLATED HEMOGLOBIN (A1C)2022-11-27 18:21:30* Test Item Value Reference Range Interpretation Comme nts HGB A1C (test code = 4548-4) 5.9 % 4.0-5.7 H OMAYRA (test code = OMAYRA) Reference RangesNormal: <5.7%Prediabetes: 5.7 - 6.4%Diabetes: > 6.5% Lab Interpretation (test code = 27308-9) Abnormal [facility] DallasTROPONIN [id number] 06:12:58* Test Item Value Reference Range Interpretation Comme nts TROPONIN I (test code = 3042463791) 0.007 ng/mL <=0.034 OMAYRA (test code = [...] of biotin. 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 Lab Interpretation (test code = 73482-5) Abnormal [facility] DallasCOMP. METABOLIC PANEL (14386)2022-11-27 06:08:02* Test Item Value Reference Range Interpretation Comme nts NA (test code = 8805206402) 116 mmol/L 135-145 LL K (test code = 4294024886) 4.1 mmol/L 3.5-5.0 CL (test code = 7154728324) 75 mmol/L 98-108 L CO2 TOTAL (test code = 3765018805) 34 mmol/L 23-31 H AGAP (test code = 4868177352) 7 2-16 BUN (test code = 9555020566) 16 mg/dL 7-23 GLUCOSE (test code = 2680096053) 70 mg/dL 70-110 CREATININE (test code = 2563917222) 0.62 mg/dL 0.60-1.25 TOTAL BILI (test code = 8936791917) 1.2 mg/dL 0.1-1.1 H CALCIUM (test code = 1914345983) 8.1 mg/dL 8.6-10.6 L T PROTEIN (test code = 4039821619) 6.3 g/dL 6.3-8.2 ALBUMIN (test code = 3663660700) 3.8 g/dL 3.5-5.0 ALK PHOS (test code = 9738119805) 58 U/L 34-122 ALTv (test code = 1742-6) 15 U/L 5-50 AST(SGOT) (test code = 2837824217) 13 U/L 13-40 eGFR (test code = 9204638987) 130.6 mL/min/1.73m2 OMAYRA (test code = OMAYRA) [...] imaging tests). Lab Interpretation (test code = 70565-3) Abnormal [facility] WITH [id number] 05:45:18* Test Item Value Reference Range Interpretation Comme nts WBC (test code = 6690-2) 9.18 See_Comment [Automated [employer]] The system which generated this result transmitted [...] 34.8 g/dL 31.2-35.0 RDW-SD (test code = 56226-1) 40.1 fL 38.5-51.6 RDW-CV (test code = 788-0) 12.6 % 12.1-15.4 PLT (test code = 777-3) 216 See_Comment [Automated [employer]] The system which generated this result transmitted reference range: 150 - 328 10*3/?L. The reference range was not used to interpret this result as normal/abnormal. MPV (test code = 05773-8) 9.4 fL 9.8-13.0 L NRBC/100 WBC (test code = 2070870337) 0.0 See_Comment [Automated [employer]] The system which generated this result transmitted reference range: 0.0 - 10.0 /100 WBCs. The reference range was not used to interpret this result as normal/abnormal. NRBC x10^3 (test code = 8618663363) See_Comment [Automated messa ge] The system which generated this result transmitted reference range: 10*3/?L. The reference range was not used to interpret this result as normal/abnormal. GRAN MAT (NEUT) % (test code = 770-8) 79.1 % IMM GRAN % (test code = 2476793823) 0.90 % LYMPH % (test code = 736-9) 11.8 % MONO % (test code = 5905-5) 6.8 % EOS % (test code = 713-8) 1.2 % BASO % (test code = 706-2) 0.2 % GRAN MAT x10^3(ANC) (test code = 3339982899) 7.27 10*3/uL 1.99-6.95 H IMM GRAN x10^3 (test code = 8149589404) 0.08 10*3/uL 0.00-0.06 H LYMPH x10^3 (test code = 731-0) 1.08 10*3/uL 1.09-3.23 L MONO x10^3 (test code = 742-7) 0.62 10*3/uL 0.36-1.02 EOS x10^3 (test code = 711-2) 0.11 10*3/uL 0.06-0.53 BASO x10^3 (test code = 704-7) 0.01-0.09 Lab Interpretation (test code = 80902-6) Abnormal [facility] DallasN-TERMINAL [id number] 09:49:54* Test Item Value Reference Range Interpretation Comme nts NT-proBNP (test code = 2856719872) 294 pg/mL <=125 H OMAYRA (test code = OMAYRA) Biotin has been reported to cause a negative bias, interpret results relative to patient's use of biotin. Lab Interpretation (test code = 86727-8) Abnormal [facility] DallasCOMP. METABOLIC PANEL ([id number])2022-11-19 09:41:52* Test Item Value Reference Range Interpretation Comme nts NA (test code = 2920359905) 120 mmol/L 135-145 L K (test code = 8666620429) 4.4 mmol/L 3.5-5.0 CL (test code = 6545733428) 80 mmol/L 98-108 L CO2 TOTAL (test code = 2203832597) 34 mmol/L 23-31 H AGAP (test code = 8054859389) 6 2-16 BUN (test code = 3901195870) 10 mg/dL 7-23 GLUCOSE (test code = 7646613284) 93 mg/dL 70-110 CREATININE (test code = 6271964403) 0.77 mg/dL 0.60-1.25 TOTAL BILI (test code = 8879577578) 1.1 mg/dL 0.1-1.1 CALCIUM (test code = 9287513692) 8.7 mg/dL 8.6-10.6 T PROTEIN (test code = 5955469172) 6.9 g/dL 6.3-8.2 ALBUMIN (test code = 7806153072) 4.1 g/dL 3.5-5.0 ALK PHOS (test code = 2699760431) 60 U/L 34-122 ALTv (test code = 1742-6) 14 U/L 5-50 AST(SGOT) (test code = 5424436186) 13 U/L 13-40 eGFR (test code = 8296365995) 101.7 mL/min/1.73m2 OMAYRA (test code = OMAYRA) [...] imaging tests). Lab Interpretation (test code = 72923-5) Abnormal [facility] WITH [id number] 09:02:29* Test Item Value Reference Range Interpretation [...] 33.7 g/dL 31.2-35.0 RDW-SD (test code = 90062-4) 42.3 fL 38.5-51.6 RDW-CV (test code = 788-0) 12.9 % 12.1-15.4 PLT (test code = 777-3) 252 See_Comment [Automated messa ge] The system which generated this result transmitted reference range: 150 - 328 10*3/?L. The reference range was not used to interpret this result as normal/abnormal. MPV (test code = 07911-6) 9.6 fL 9.8-13.0 L NRBC/100 WBC (test code = 4971943923) 0.0 See_Comment [Automated [employer]] The system which generated this result transmitted reference range: 0.0 - 10.0 /100 WBCs. The reference range was not used to interpret this result as normal/abnormal. NRBC x10^3 (test code = 7510096712) See_Comment [Automated messa ge] The system which generated this result transmitted reference range: 10*3/?L. The reference range was not used to interpret this result as normal/abnormal. GRAN MAT (NEUT) % (test code = 770-8) 70.7 % IMM GRAN % (test code = 5397504749) 1.00 % LYMPH % (test code = 736-9) 16.0 % MONO % (test code = 5905-5) 10.5 % EOS % (test code = 713-8) 1.3 % BASO % (test code = 706-2) 0.5 % GRAN MAT x10^3(ANC) (test code = 5567384971) 5.87 10*3/uL 1.99-6.95 IMM GRAN x10^3 (test code = 2074836094) 0.08 10*3/uL 0.00-0.06 H LYMPH x10^3 (test code = 731-0) 1.33 10*3/uL 1.09-3.23 MONO x10^3 (test code = 742-7) 0.87 10*3/uL 0.36-1.02 EOS x10^3 (test code = 711-2) 0.11 10*3/uL 0.06-0.53 BASO x10^3 (test code = 704-7) 0.04 10*3/uL 0.01-0.09 Lab Interpretation (test code = 22445-2) Abnormal [facility] METABOLIC PANEL (NA, K, CL, CO2, GLUCOSE, BUN, CREATININE, CA)2022-11-10 23:42:55* Test Item Value Reference Range Interpretation Comme nts NA (test code = 0085508869) 121 mmol/L 135-145 L K (test code = 6065229202) 4.7 mmol/L 3.5-5.0 CL (test code = 4314777490) 82 mmol/L 98-108 L CO2 TOTAL (test code = 9736489228) 34 mmol/L 23-31 H AGAP (test code = 4347494020) 5 2-16 BUN (test code = 8008069904) 15 mg/dL 7-23 GLUCOSE (test code = 3678114024) 120 mg/dL 70-110 H CREATININE (test code = 7317255378) 0.75 mg/dL 0.60-1.25 CALCIUM (test code = 9464102480) 7.7 mg/dL 8.6-10.6 L eGFR (test code = 7866265789) 104.8 mL/min/1.73m2 OMAYRA (test code = OMAYRA) [...] imaging tests). Lab Interpretation (test code = 28369-1) Abnormal [facility] METABOLIC PANEL (NA, K, CL, CO2, GLUCOSE, BUN, CREATININE, CA)2022-11-10 17:59:59* Test Item Value Reference Range Interpretation Comme nts NA (test code = 7652444905) 121 mmol/L 135-145 L K (test code = 5006872866) 4.3 mmol/L 3.5-5.0 CL (test code = 1456253068) 81 mmol/L 98-108 L CO2 TOTAL (test code = 7537015108) 38 mmol/L 23-31 H AGAP (test code = 3435140262) 2 2-16 BUN (test code = 8957881075) 15 mg/dL 7-23 GLUCOSE (test code = 1832709252) 113 mg/dL 70-110 H CREATININE (test code = 7106013853) 0.74 mg/dL 0.60-1.25 CALCIUM (test code = 7581453971) 7.5 mg/dL 8.6-10.6 L eGFR (test code = 7864664039) 106.5 mL/min/1.73m2 OMAYRA (test code = OMAYRA) [...] imaging tests). Lab Interpretation (test code = 85602-5) [facility]normal [facility] [id number] 13:08:23* Test Item Value Reference Range Interpretation Comme nts NT-proBNP (test code = 7410529954) 177 pg/mL <=125 H OMAYRA (test code = OMAYRA) Biotin has been reported to cause a negative bias, interpret results relative to patient's use of biotin. Lab Interpretation (test code = 48510-4) Abnormal [facility] [id number] 08:23:33* Test Item Value Reference Range Interpretation Comme nts TROPONIN I (test code = 0186492548) 0.004 ng/mL <=0.034 OMAYRA (test code = [...] of biotin. Lab Interpretation (test code = 74618-9) Normal [facility]OLIC PANEL ([id number])2022-11-09 08:12:09* Test Item Value Reference Range Interpretation Comme nts NA (test code = 9742599148) 123 mmol/L 135-145 L K (test code = 5926341712) 4.2 mmol/L 3.5-5.0 CL (test code = 2619492147) 78 mmol/L 98-108 L CO2 TOTAL (test code = 7133826092) 34 mmol/L 23-31 H AGAP (test code = 3023476155) 11 2-16 BUN (test code = 0959322500) 8 mg/dL 7-23 GLUCOSE (test code = 6868533133) 113 mg/dL 70-110 H CREATININE (test code = 6540780345) 0.87 mg/dL 0.60-1.25 TOTAL BILI (test code = 2141369616) 1.2 mg/dL 0.1-1.1 H CALCIUM (test code = 1493637399) 8.8 mg/dL 8.6-10.6 T PROTEIN (test code = 2370976380) 7.6 g/dL 6.3-8.2 ALBUMIN (test code = 3992132455) 4.5 g/dL 3.5-5.0 ALK PHOS (test code = 0555647363) 72 U/L 34-122 ALTv (test code = 1742-6) 13 U/L 5-50 AST(SGOT) (test code = 0892944149) 13 U/L 13-40 eGFR (test code = 0469304617) 88.3 mL/min/1.73m2 OMAYRA (test code = OMAYRA) [...] imaging tests). Lab Interpretation (test code = 25207-7) Abnormal [facility] DallasLIPASE, [id number] 08:11:14* Test Item Value Reference Range Interpretation Comme nts LIPASE (test code = 0847275453) 108 U/L 0-220 Lab Interpretation (test cod e = 71094-1) Normal [facility] DallasCB WITH [id number] 07:59:28* Test Item Value Reference Range Interpretation Comme nts WBC (test code = 6690-2) 8.95 See_Comment [Automated [employer]] The system which generated this result transmitted reference range: 4.20 - 10.70 10*3/?L. The reference range was not used to interpret this result as normal/abnormal. RBC (test code = 789-8) 5.07 See_Comment [Automated [employer]] The system which generated this result transmitted [...] 32.8 g/dL 31.2-35.0 RDW-SD (test code = 65934-5) 41.1 fL 38.5-51.6 RDW-CV (test code = 788-0) 12.5 % 12.1-15.4 PLT (test code = 777-3) 235 See_Comment [Automated [employer]] The system which generated this result transmitted reference range: 150 - 328 10*3/?L. The reference range was not used to interpret this result as normal/abnormal. MPV (test code = 18957-3) 9.8 fL 9.8-13.0 NRBC/100 WBC (test code = 6656853915) 0.0 See_Comment [Automated [employer]] The system which generated this result transmitted reference range: 0.0 - 10.0 /100 WBCs. The reference range was not used to interpret this result as normal/abnormal. NRBC x10^3 (test code = 1168798625) See_Comment [[employer]] The system which generated this result transmitted reference range: 10*3/?L. The reference range was not used to interpret this result as normal/abnormal. GRAN MAT (NEUT) % (test code = 770-8) 56.9 % IMM GRAN % (test code = 2284111702) 0.40 % LYMPH % (test code = 736-9) 29.4 % MONO % (test code = 5905-5) 9.5 % EOS % (test code = 713-8) 3.0 % BASO % (test code = 706-2) 0.8 % GRAN MAT x10^3(ANC) (test code = 6752161547) 5.09 10*3/uL 1.99-6.95 IMM GRAN x10^3 (test code = 5500830650) 0.04 10*3/uL 0.00-0.06 LYMPH x10^3 (test code = 731-0) 2.63 10*3/uL 1.09-3.23 MONO x10^3 (test code = 742-7) 0.85 10*3/uL 0.36-1.02 EOS x10^3 (test code = 711-2) 0.27 10*3/uL 0.06-0.53 BASO x10^3 (test code = 704-7) 0.07 10*3/uL 0.01-0.09 [facility] [id number] 19:05:00 * Test Item Value Reference Range [...] (test code = 3267) [facility] [id number] 19:05:00 * Test Item Value Reference Range [...] U APPEAR (test code = 3267) clear [facility] URINALYSIS, [id number] 19:05:00 * Test Item Value Reference Range [...] [facility] ABDOMEN PELVIS W [id number] 17:53:531. ?No hydronephrosis or nephrolithiasis. 2. ?Mild [...] hernia with mild circumferential distalesophageal thickening (2:16). [place] density within the distal stomach andat the [...] hernia with mild circumferential distalesophageal thickening (2:16). [place] density within the distal stomach andat the [...] small right hydrocele.5. Additional findings as above. [facility] [id number] 17:37:38* Test Item Value Reference Range Interpretation Comme nts APPEARANCE (test code = 9909856173) Cloudy Clear A COLOR (test code = 3969857334) Red Yellow A PH (test code = 3496222147) 4.8-8.0 SP GRAVITY (test code = 5031428789) 1.003-1.030 GLU U QUAL (test code = 3637744485) 50 mg/dL Normal A BLOOD (test code = 0199758949) 3+ Negative A KETONES (test code = 1517704801) Negative Negative PROTEIN (test code = 2887-8) 100 mg/dL Negative A UROBILIN (test code = 3976099440) Normal Normal BILIRUBIN (test code = 4254737321) Negative Negative NITRITE (test code = 8131517029) Negative Negative LEUK DIANELYS (test code = 6949145070) Negative Negative RBC/HPF (test code = 1232174339) >182 See_Comment H [Automated messa ge] The system which generated this result transmitted reference range: 0 - 3 HPF. The reference range was not used to interpret this result as normal/abnormal. WBC/HPF (test code = 8888932898) >182 See_Comment H [Automated messa ge] The system which generated this result transmitted reference range: 0 - 5 HPF. The reference range was not used to interpret this result as normal/abnormal. BACTERIA (test code = 7943870311) Moderate Negative A WBC CLUMPS (test code = 8637624934) See_Comment H [Automated messa ge] The system which generated this result transmitted reference range: <=1 HPF. The reference range was not used to interpret this result as normal/abnormal. Lab Interpretation (test code = 09578-6) Abnormal [facility] Metabolic Panel (NA, K, CL, CO2, GLUCOSE, BUN, CREATININE, CA)2020-12-12 17:13:57* Test Item Value Reference Range Interpretation Comme nts NA (test code = 2815542477) 140 mmol/L 135-145 K (test code = 7622244604) 4.5 mmol/L 3.5-5.0 CL (test code = 3711737727) 100 mmol/L 98-108 CO2 TOTAL (test code = 6917828796) 35 mmol/L 23-31 H AGAP (test code = 6110332457) 2-16 BUN (test code = 7731428413) 25 mg/dL 7-23 H GLUCOSE (test code = 7590158298) 114 mg/dL 70-110 H CREATININE (test code = 0507279547) 1.18 mg/dL 0.60-1.25 CALCIUM (test code = 0840034945) 9.0 mg/dL 8.6-10.6 eGFR Calculation (Non-) (test code = 8002479884) mL/min/1.73m2 eGFR Calculation () (test code = 4461187709) mL/min/1.73m2 OMAYRA (test code = OMAYRA) Association [...] imaging tests). Lab Interpretation (test code = 38886-5) Abnormal [facility] with [id number] 16:56:10* Test Item Value Reference Range Interpretation Comme nts WBC (test code = 6690-2) See_Comment [Automated [employer]] The system which generated this result transmitted [...] 32.8 g/dL 31.2-35.0 RDW-SD (test code = 77393-9) 42.9 fL 38.5-51.6 RDW-CV (test code = 788-0) 11.9 % 12.1-15.4 L PLT (test code = 777-3) See_Comment [Automated [employer]] The system which generated this result transmitted reference range: 150 - 328 10*3/?L. The reference range was not used to interpret this result as normal/abnormal. MPV (test code = 11381-3) 10.8 fL 9.8-13.0 NRBC/100 WBC (test code = 0142515506) See_Comment [Automated [employer]] The system which generated this result transmitted reference range: 0.0 - 10.0 /100 WBCs. The reference range was not used to interpret this result as normal/abnormal. NRBC x10^3 (test code = 6166143417) <0.01 See_Comment [Automated messa ge] The system which generated this result transmitted reference range: 10*3/?L. The reference range was not used to interpret this result as normal/abnormal. GRAN MAT (NEUT) % (test code = 770-8) 63.5 % IMM GRAN % (test code = 1165177658) 0.40 % LYMPH % (test code = 736-9) 23.9 % MONO % (test code = 5905-5) 6.7 % EOS % (test code = 713-8) 4.3 % BASO % (test code = 706-2) 1.2 % GRAN MAT x10^3(ANC) (test code = 1882482945) 4.27 10*3/uL 1.99-6.95 IMM GRAN x10^3 (test code = 0406551025) 0.03 10*3/uL 0.00-0.06 LYMPH x10^3 (test code = 731-0) 1.61 10*3/uL 1.09-3.23 MONO x10^3 (test code = 742-7) 0.45 10*3/uL 0.36-1.02 EOS x10^3 (test code = 711-2) 0.29 10*3/uL 0.06-0.53 BASO x10^3 (test code = 704-7) 0.08 10*3/uL 0.01-0.09 Lab Interpretation (test code = 64430-1) [facility] [id number] 18:56:00 * Test Item Value Reference Range [...] turbid Lab Interpretation (test cod e = 66769-7) [facility] [id number] 18:56:00 * Test Item Value Reference Range [...] turbid Lab Interpretation (test cod e = 18185-7) Abnormal [facility]
[2023-09-16 14:16] LABS: Hematocrit 37.2 % (39.6-49.0); Lymphocytes % 14.1 % (15.3-44.8); MCV 97.6 fL (80-100); Platelets 166 thou/uL (152-406); RBC Red Blood Cell Count 3.81 M/uL (4.33-5.43)
[2023-09-16 14:31] LABS: Albumin 2.9 g/dL (3.4-5.0); Bilirubin Total 0.7 mg/dL (0.2-1.0); Potassium 3.3 mEq/L (3.5-5.1); Protein, Total 5.7 g/dL (6.4-8.2)
--- NOTE | 2023-09-16 17:46 | RAD REPORT ---
EXAM DESCRIPTION: RADChest Single View09/16/2023 5:39 pm CLINICAL HISTORY: sob COMPARISON: Chest Single View dated 09/14/2023; Chest Single View dated 09/11/2023; Chest Single Vie w dated 09/11/2023; Chest Single View dated 09/08/2023 TECHNIQUE: Portable AP view of the chest. FINDINGS: The lungs are clear. Diffuse hyperinflation and hyperlucency suggestive of COPD. Left ches t wall single lead pacer in place. No pneumothorax or effusion. The cardiomediastinal contours are un remarkable. IMPRESSION: No acute cardiopulmonary process.
--- NOTE | 2023-09-16 18:45 | EDPHYS ---
Physician Documentation [facility] Name: Juan C Monge Age: 63 yrs Sex: Male : 1960 Arrival Date: 09/16/2023 Time: 13:05 Bed 7 Private MD: ED Physician Sharad Perales HPI: 09/16 16:42 This 63 yrs old Male presents to ER via Ambulatory with complaints of General Weakness, kdr Abdominal Pain. 16:42 This is the patient's eighth visit this month for shortness of breath and COPD kdr exacerbation. Patient states he was discharged yesterday from the hospital still not feeling well. His complaints are generalized and nonfocal. The patient states he has a home that he lives in nearby but that he simply has not felt well and continues to come back. The patient looks very slightly uncomfortable but otherwise is not in any acute distress.. Onset: The symptoms/episode began/occurred at an unknown time. ongoing problem without any clear or recent onset. Patient denies any new aspects of his illness today.. Severity of symptoms: At their worst the symptoms were mild moderate just prior to arrival, in the emergency department the symptoms are unchanged. The patient has experienced similar episodes in the past, chronically. The patient has been recently seen by a physician: The patient has been recently seen at the [facility] Emergency Department, The patient has been recently been admitted at [facility]. Historical: - Allergies: 13:15 No Known Allergies; hb - PMHx: 13:15 COPD; CVA; Hyperlipidemia; Hypertension; Myocardial infarction; skull fracture; hb - PSHx: 13:15 Appendectomy; pacemaker; hb - Immunization history:: Adult Immunizations up to date. - Social history:: Smoking status: Patient reports the use of cigarette tobacco products, smokes one pack cigarettes per day. ROS: 16:42 Constitutional: Negative for fever, chills, and weight loss, Eyes: Negative for injury, kdr pain, redness, and discharge, ENT: Negative for injury, pain, and discharge, Neck: Negative for injury, pain, and swelling, Cardiovascular: Negative for chest pain, palpitations, and edema, Abdomen/GI: Negative for abdominal pain, nausea, vomiting, diarrhea, and constipation, Back: Negative for injury and pain, : Negative for injury, bleeding, discharge, and swelling, MS/Extremity: Negative for injury and deformity, Skin: Negative for injury, rash, and discoloration, Neuro: Negative for headache, weakness, numbness, tingling, and seizure activity. Psych: Negative for depression, anxiety, suicide ideation, homicidal ideation, and hallucinations, Allergy/Immunology: Negative for hives, rash, and allergies, Endocrine: Negative for neck swelling, polydipsia, polyuria, polyphagia, and marked weight changes, Hematologic/Lymphatic: Negative for swollen nodes, abnormal bleeding, and unusual bruising, 16:42 Respiratory: Positive for cough, with no reported sputum, dyspnea on exertion, shortness of breath, Negative for hemoptysis, orthopnea, pleurisy, Exam: 16:42 Constitutional: This is a well developed, well nourished patient who is awake, alert, kdr and in mild distress. Head/Face: Normocephalic, atraumatic. Eyes: Pupils equal round and reactive to light, extra-ocular motions intact. Lids and lashes normal. Conjunctiva and sclera are non-icteric and not injected. Cornea within normal limits. Periorbital areas with no swelling, redness, or edema. Neck: Trachea midline, no thyromegaly or masses palpated, and no cervical lymphadenopathy. Supple, full range of motion without nuchal rigidity, or vertebral point tenderness. No Meningismus. Chest/axilla: Normal chest wall appearance and motion. Nontender with no deformity. No lesions are appreciated. Vital Signs: 13:13 BP 154 / 90; Pulse 94; Resp 28; Temp 97.9(TE); Pulse Ox 93% on R/A; Weight 68.04 kg; hb Height 5 ft. 10 in. ; Pain 7/10; 16:55 BP 120 / 107; Pulse 81; Resp 16; Pulse Ox 100% ; bp 18:04 BP 182 / 77; Pulse 76; Resp 16; Pulse Ox 97% on R/A; bp 18:37 BP 143 / 72; Pulse 74; Resp 18; Pulse Ox 95% on R/A; bp 13:13 Body Mass Index 21.52 (68.04 kg, 177.8 cm) hb 13:13 Pain Scale: Adult hb 18:04 EXERTIONAL bp MDM: 18:45 Patient medically screened. kdr 19:14 Data reviewed: vital signs, nurses notes, lab test result(s). [facility] 09/16 13:20 Order name: Urinalysis w/ reflexes [facility] 09/16 14:21 Order name: CBC with Automated Diff [facility] 09/16 14:31 Order name: Comprehensive Metabolic Panel [facility] 09/16 14:31 Order name: Lipase [facility] 09/16 14:57 Order name: NT PRO-BNP [facility] 09/16 14:57 Order name: Troponin HS [facility] 09/16 17:47 Order name: RAD; Complete Time: 18:21 [facility] 09/16 14:57 Order name: EKG; Complete Time: 19:11 [facility] 09/16 13:20 Order name: IV Saline Lock; Complete Time: 13:58 [facility] 09/16 13:20 Order name: Labs collected and sent; Complete Time: 13:58 [facility] 09/16 14:57 Order name: Cardiac monitoring; Complete Time: 14:58 [facility] 09/16 14:57 Order name: O2 Per Protocol; Complete Time: 14:58 [facility] 09/16 14:57 Order name: O2 Sat Monitoring; Complete Time: 14:58 [facility] 09/16 15:49 Order name: Misc. Order: Ambulate patient on RA and record VS changes; Complete Time: [facility] 18:04 Administered Medications: 15:35 Drug: MethylPrednisoLONE IVP 125 mg IVP once Route: IVP; Site: left forearm; bp 15:35 Drug: Levalbuterol Inhalation 1.25 mg Inhalation once Route: Inhalation; bp Disposition Summary: 09/16/23 18:45 Discharge Ordered Notes: Location: Home kdr Problem: an acute exacerbation kdr Symptoms: have improved kdr Condition: Stable kdr Diagnosis - COPD/ Chronic obstructive pulmonary disease, unspecified kdr - COPD/ Chronic obstructive pulmonary disease with (acute) exacerbation kdr Followup: kdr - With: Private Physician - When: 2 - 3 days - Reason: If symptoms return, Further diagnostic work-up, Recheck today's complaints, Continuance of care, Re-evaluation by your physician Discharge Instructions: - Discharge Summary Sheet kdr - Chronic Obstructive Pulmonary Disease Exacerbation kdr Forms: - Medication Reconciliation Form kdr - Thank You Letter kdr - Patient Portal Instructions kdr - Leadership Thank You Letter kdr Prescriptions: - ipratropium bromide 0.02 % Inhalation solution - nebulize 1.25 milliliter INHALATION route every 4 hours As needed; 2 kdr Unspecified; Refills: 0, Product Selection Permitted - Albuterol Sulfate 2.5 mg /3 mL (0.083 %) Inhalation Solution for Nebulization - inhale 1 unit NEBULIZATION route every 8 hours As needed; 2 unit; Refills: 0, kdr Product Selection Permitted - Medrol (Hesham) 4 mg Oral Tablets, Dose Pack - take 1 tablet ORAL route as directed - follow package instructions; 1 packet; kdr Refills: 0, Product Selection Permitted Signatures: Dispatcher [employer] Sharad Case MD MD kdr Baxter, Heather, RN RN Steven Jimenez RN RN bp Corrections: (The following items were deleted from the chart) 19:34 19:11 Chest Single View+RAD.RAD.BRZ ordered. EDMS EDMS
--- NOTE | 2023-09-16 18:45 | ER ---
Nurse's Notes [facility] Name: Juan C Monge Age: 63 yrs Sex: Male : 1960 Arrival Date: 09/16/2023 Time: 13:05 Bed 7 Private MD: Diagnosis: COPD/ Chronic obstructive pulmonary disease, unspecified;COPD/ Chronic obstructive pulmonary disease with (acute) exacerbation Presentation: 09/16 13:13 Chief complaint: Abdominal pain, SOB, dizziness, and malaise x 1 week, worse today. hb Coronavirus screen: At this time, the client does not indicate any symptoms associated with coronavirus-19. Ebola Screen: No symptoms or risks identified at this time. Initial Sepsis Screen: Does the patient meet any 2 criteria? RR > 20 per min. HR > 90 bpm. No. Patient's initial sepsis screen is negative. Does the patient have a suspected source of infection? No. Patient's initial sepsis screen is negative. Risk Assessment: Do you want to hurt yourself or someone else? Patient reports no desire to harm self or others. Onset of symptoms was September 16, 2023. 13:13 Method Of Arrival: Ambulatory hb 13:13 Acuity: JESSI 2 hb Triage Assessment: 14:11 General: Appears distressed, ill, Behavior is calm, cooperative, appropriate for age. bp Pain: Complains of pain in abdomen. GI: Reports lower abdominal pain, upper abdominal pain. Historical: - Allergies: 13:15 No Known Allergies; hb - PMHx: 13:15 COPD; CVA; Hyperlipidemia; Hypertension; Myocardial infarction; skull fracture; hb - PSHx: 13:15 Appendectomy; pacemaker; hb - Immunization history:: Adult Immunizations up to date. - Social history:: Smoking status: Patient reports the use of cigarette tobacco products, smokes one pack cigarettes per day. Screenin:10 [facility] ED Fall Risk Assessment (Adult) History of falling in the last 3 months, bp including since admission No falls in past 3 months (0 pts). Abuse screen: Denies threats or abuse. Denies injuries from another. Nutritional screening: No deficits noted. Tuberculosis screening: No symptoms or risk factors identified. Assessment: 14:10 General: SEE TRIAGE NOTE. bp Vital Signs: 13:13 BP 154 / 90; Pulse 94; Resp 28; Temp 97.9(TE); Pulse Ox 93% on R/A; Weight 68.04 kg; hb Height 5 ft. 10 in. ; Pain 7/10; 16:55 BP 120 / 107; Pulse 81; Resp 16; Pulse Ox 100% ; bp 18:04 BP 182 / 77; Pulse 76; Resp 16; Pulse Ox 97% on R/A; bp 18:37 BP 143 / 72; Pulse 74; Resp 18; Pulse Ox 95% on R/A; bp 13:13 Body Mass Index 21.52 (68.04 kg, 177.8 cm) hb 13:13 Pain Scale: Adult hb 18:04 EXERTIONAL bp ED Course: 13:08 Patient arrived in ED. ts1 13:15 Triage completed. hb 13:15 Arm band placed on. hb 13:17 Sharad Perales MD is Attending Physician. kdr 13:48 Steven Jimenez, RN is Primary Nurse. bp 14:10 Patient has correct armband on for positive identification. Bed in low position. Call bp light in reach. 14:10 Inserted saline lock: 20 gauge in left forearm, using aseptic technique. Blood bp collected. 20:28 IV discontinued, intact, bleeding controlled, No redness/swelling at site. Pressure pf1 dressing applied. 20:29 Provided Education on: prescriptions. pf1 20:29 No provider procedures requiring assistance completed. pf1 Administered Medications: 15:35 Drug: MethylPrednisoLONE IVP 125 mg IVP once Route: IVP; Site: left forearm; bp 15:35 Drug: Levalbuterol Inhalation 1.25 mg Inhalation once Route: Inhalation; bp Medication: 20:29 VIS not applicable for this client. pf1 Outcome: 18:45 Discharge ordered by . kdr 20:29 Discharged to home ambulatory, pf1 20:29 Condition: stable 20:29 Discharge instructions given to patient, Instructed on discharge instructions, follow up and referral plans. Demonstrated understanding of instructions, follow-up care, Prescriptions given X 20:30 Prescriptions given X 3, pf1 20:30 Patient left the ED. pf1 Signatures: Sharad Perales MD MD kdr Angely Smith RN RN Steven Jimenez, RN RN Debby Brown RN RN pf1 Juani Otoole PAS PAS ts1
[2023-09-16 21:52] VITALS: TEMP 97.9
[2023-09-16 22:10] VITALS: BP 143/72; O2SAT 95
== END ==
LOC: ER 13:05
DX: J44.1 Chronic obstructive pulmonary disease with (acute) exacerbation (principal); F17.210 Nicotine dependence, cigarettes, uncomplicated; Z95.0 Presence of cardiac pacemaker
CPT/HCPCS: 85025; 36415; 84484; 83690; 80053; 83880; 71045; 96374; 99285; J7614; J2930

== ENCOUNTER 2023-10-16 22:29 | Inpatient (IN) | payer OTHER ==
[2023-10-16] MEDS ORDERED: ALBUTEROL 2.5 MG/3 ML NEB SOL ONE (22:35)
[2023-10-16] MEDS ORDERED: IPRATROPIUM BROM 0.5MG/2.5ML ONE (22:35)
[2023-10-16] MEDS ORDERED: METHYLPREDNISOLONE 125 MG INJ ONE (22:36)
[2023-10-16] MEDS ORDERED: MAGNESIUM SULFATE 1 gm IVPB 1 GM/100 ML BAG IV ONE (22:36)
--- OUTSIDE RECORDS SUMMARY | 2023-10-16 22:46 | XMS REPORT | Continuity of Care Document ---
Author Name Unknown Address [address] [place] [address] [facility] thconnect Address [address] [place] [address] Care Team Providers Care Crate Repairer Name Role Phone MILY MAY Primary Care Physician Unavailable HERMINIA OH Attending Clinician Unavailable NOMI MARY Attending Clinician Unavailable NOMI MARY Attending Clinician Unavailable Nomi Mary DO Attending Clinician Doctor Unassigned, [place] Attending Clinician U elaina Monge RN, Marika Friedman Attending Clinician [phone] ATANASOV, STRAHIL T Attending Clinician Unavaila MARELY Meehan T Attending Clinician Unavaila Rudy Kahn Attending Clinician Unavailable CARL ORLANDO Attending Clinician Unavailable CARL ORLANDO Attending Clinician Unavailable MILY MAY Attending Clinician April Mily Ruiz MD Attending Clinician Taylor Frye RN Attending Clinician Unavailab TRAVIS Katz Attending Clinician Unavailable Iza Portillo Attending Clinician [phone] Francisca Bryant DO Attending Clinician [phone] Travis Zeng MD Attending Clinician [phone] PRADIP AUSTIN Attending Clinician Unavaila Pradip Du Attending Clinician [phone] HERMINIA CHO Attending Clinician Unavailable Herminia Cho MD Attending Clinician [phone] FRANCISCA BRYANT Attending Clinician Unavailab LOUIS Ham Attending Clinician Unavailable Louis Hong DO Attending Clinician +[phone] Bessie Oswald MD Attending Clinician [phone] RACHAEL FLOWERS Attending Clinician Unavailable Rachael Flowers MD Attending Clinician [phone] LEOBARDO SLOAN Attending Clinician Unavailable Leobardo Sloan MD Attending Clinician [phone] BESSIE OSWALD Attending Clinician Unavailable STEPHANIE ALMONTE Attending Clinician Unavail able Stephanie Almonte MD Attending Clinician [phone] IZA VARMA Attending Clinician Unavailable Kathia Paula MD Attending Clinician [phone] Agapito Hackett MD Attending Clinician [phone] María Diaz DO Attending Clinician [phone] MARISOL DEVLIN Attending Clinician Unavailable Marisol Devlin MD Attending Clinician [phone] Dedrick Toth MD Attending Clinician [phone] Cecy Caro LVN Attending Clinician Shanthi FRANCIS, Carlo Attending Clinician + [phone] Beny SAWYER, Abi Attending Clinician [phone] Clive Contreras MD Attending Clinician [phone] ERNESTO PIPER Attending Clinician Unavailable ERNESTO PIPER Attending Clinician Unavailable Krissy Powers MD Attending Clinician [phone] LEILA CHAPA Attending Clinician Unavailable Leila Chapa MD Attending Clinician [phone] Karine MUSIC THERAPISTJeanette Attending Clinician [phone] [facility] Main Attending Clinician UnavailGokul Lewis MD Attending Clinician [phone] GOKUL TURNER Attending Clinician Unavailable , Adc Surg Spec Procedure Attending Clinician Unavailable JEANETTE MCDANIEL Attending Clinician Unavailable Chris ZAMORA, Herminia S Attending Clinician UnavailTyrell Giraldo Attending Clinician UnavailRamesh Davis Attending Clinician [phone] Rudy Xiao Admitting Clinician Unavailable TRAVIS ZENG Admitting Clinician Unavailable Travis Zeng MD Admitting Clinician [phone] STEPHANIE ALMONTE Admitting Clinician Unavail able LOUIS HONG Admitting Clinician Unavailable María Diaz DO Admitting Clinician [phone] MARISOL DEVLIN Admitting Clinician Unavailable IZA VARMA Admitting Clinician Unavailable Clive Contreras MD Admitting Clinician [phone] KRISSY POWERS Admitting Clinician Unavailable Krissy Powers MD Admitting Clinician [phone] MARÍA DIAZ Admitting Clinician Unavailable HERMINIA CHO Admitting Clinician Unavailable SAUD SANDERS Admitting Clinician Unavailable Payers Payer Name Policy Type Policy Number Effective Date Expirati on Date Source [employer] MEDICARE GOLD [id number] 2018 00:00:00 [employer]ICE [id number] 2022 00:00:00 Problems Condition Name Condition Details Condition Category Status Onset Date Resolution Date Last Treatment Date Treating Clinician Comments Source Mitral regurgitat ion Mitral regurgitat ion Disease Active 5-31 00:00: 00 [facility] Hypotensio n, unspecifie d hypotensio n type Hypotensio n, unspecifie d hypotensio n type Disease Active 5-30 00:00: 00 [facility] 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 Disease Active 5-03 00:00: 00 [facility] Confusion Confusion Disease Active 3-24 00:00: 00 [facility] Shortness of breath Shortness of breath Disease Active 3-11 00:00: 00 [facility] SOB (shortness of breath) SOB (shortness of breath) Disease Active 2- 00:00: 00 [facility] 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 heart failure Disease Active 2018-09 00:00: 00 [facility] PAF (paroxysma l atrial fibrillati on) PAF (paroxysma l atrial fibrillati on) Disease Active 2018-09 00:00: 00 [facility] NSVT (nonsustai charlette ventricula r tachycardi a) NSVT (nonsustai charlette ventricula r tachycardi a) Disease Active 2018-09 00:00: 00 [facility] Acute on chronic combined systolic and diastolic congestive heart failure Acute on chronic combined systolic and diastolic congestive heart failure Disease Active 2018-09 00:00: 00 [facility] Nonrheumat ic mitral valve stenosis Nonrheumat ic mitral valve stenosis Disease Active 2018-09 00:00: 00 [facility] COPD exacerbati on COPD exacerbati on Disease Active 2018-09 00:00: 00 [facility] Cigarette smoker Cigarette smoker Disease Active 2018-09 00:00: 00 [facility] Troponin I above reference range Troponin I above reference range Disease Active 2018-09 00:00: 00 [facility] Hyponatrem ia Hyponatrem ia Disease Active 2018-09 00:00: 00 [facility] Hypoxia Hypoxia Disease Active 2018-09 00:00: 00 [facility] Acute respirator y distress Acute respirator y distress Disease Active 2018-09 00:00: 00 [facility] Left heart failure Left heart failure Disease Active 2013-09 00:00: 00 [facility] Closed fracture of zygoma Closed fracture of zygoma Disease Active 2013-09 00:00: 00 Overview: Formattin g of this note might be different from the original. Chronic Fracture - not acute [facility] Fall Fall Disease Active 2013-09 00:00: 00 [facility] Atrial fibrillati on Atrial fibrillati on Disease Active 2013-09 00:00: 00 [facility] VT (ventricul ar tachycardi a) VT (ventricul ar tachycardi a) Disease Active 2013-09 00:00: 00 [facility] Allergies, Adverse Reactions, Alerts Allergy Name Allergy Type Status Severity Reaction(s) Onset Date Inactive Date Treating Clinician Comments Source No Known Allergie s DA Active U 2019-09 00:00: 00 [facility] No Known Allergie s DA Active U 2019-09 0 00:00: 00 [facility] NO KNOWN ALLERGIE S Drug Class Active [facility] Social History Social Habit Start Date Stop Date Quantity Comments Source [facility] of tobacco use Passive smoker [facility] History SDOH Social Connections Get Together [facility] History SDOH Social Connections Confucianist [facility] History SDOH Social Connections Membership [facility] History SDOH Social Connections Meetings [facility] History of Social function 2023-03-01 00:00:00 2023-03-01 00:00:00 [facility] Alcohol intake 2023-03-01 00:00:00 2023-03-01 00:00:00 Current drinker of alcohol (finding) [facility] History SDOH Housing Unable to Pay 2023-02-18 00:00:00 2023-02-18 00:00:00 2 [facility] History SDOH Housing Places Lived 2023-02-18 00:00:00 2023-02-18 00:00:00 1 [facility] History SDOH Housing Homeless Last Year 2023-02-18 00:00:00 2023-02-18 00:00:00 2 [facility] History SDOH Alcohol Frequency 2023-02-18 00:00:00 2023-02-18 00:00:00 1 [facility] History SDOH Social Connections Phone 2023-02-18 00:00:00 2023-02-18 00:00:00 5 [facility] History SDOH Social Connections Living 2023-02-18 00:00:00 2023-02-18 00:00:00 7 [facility] History SDOH Physical Activity DPW 2023-02-18 00:00:00 2023-02-18 00:00:00 0 [facility] History SDOH Physical Activity MPS 2023-02-18 00:00:00 2023-02-18 00:00:00 0 [facility] History SDOH Financial 2023-02-18 00:00:00 2023-02-18 00:00:00 5 [facility] History SDOH Food Worry 2023-02-18 00:00:00 2023-02-18 00:00:00 1 [facility] History SDOH Food Scarcity 2023-02-18 00:00:00 2023-02-18 00:00:00 1 [facility] History SDOH Transport Med 2023-02-18 00:00:00 2023-02-18 00:00:00 2 [facility] History SDOH Transport Non-Med 2023-02-18 00:00:00 2023-02-18 00:00:00 2 [facility] Exposure to SARS-CoV-2 (event) 2023-02-05 00:00:00 2023-02-15 15:15:00 Not sure [facility] History SDOH Alcohol Std Drinks 2022-12-02 00:00:00 2022-12-02 00:00:00 3 [facility] History SDOH Alcohol Binge 2022-12-02 00:00:00 2022-12-02 00:00:00 1 [facility] Cigarettes smoked current (pack per day) - Reported 2022-11-09 00:00:00 2022-11-09 00:00:00 [facility] Tobacco use and exposure 2022-11-09 00:00:00 2022-11-09 00:00:00 User of smokeless tobacco [facility] Education - What is the highest level of school you have completed or the highest degree you have received? 2022-11-09 00:00:00 2022-11-09 00:00:00 High school graduate [facility] Alcohol Comment 2014-08-27 00:00:00 2014-08-27 00:00:00 8 drinks per day [facility] Sex Assigned At 1960 00:00:00 1960 00:00:00 [facility] Smoking Status Start Date Stop Date Source Smokes tobacco daily 2022-11-09 00:00:00 [facility] Medications Ordered Medication Name Filled Medication Name Start Date Stop Date Current Medication? Ordering Clinician Indication Dosage Frequency Signature (SIG) Comments Components Source umjordyn sim (INCRUSE ELLIPTA) 62.5 mcg/actuati on DsDv 2022-09 0- 00:00: 00 Yes [id number] 1{puff} Inhale 1 Puff in the morning. [facility] tiotropium 18 mcg inhalation 2022-09 0 00:00: 00 Yes 18ug Inhale 1 capsule in the morning. [facility] tiotropium 18 mcg inhalation 2022-09 020 00:00: 00 Yes 18ug Inhale 1 capsule in the morning. [facility] tiotropium 18 mcg inhalation 2022-09 020 00:00: 00 Yes 18ug Inhale 1 capsule in the morning. [facility] fluticasone propion-bella meteroL (ADVAIR DISKUS) 250-50 mcg/dose inhalation disk 8- 00:00: 00 Yes 1{puff} Inhale 1 Puff in the morning and 1 Puff in the evening. [facility] tiotropium 18 mcg inhalation 04-19 00:00: 00 Yes 18ug Inhale 1 capsule in the morning. [facility] albuterol 90 mcg/actuati on inhaler 04-19 00:00: 00 Yes 2{puff} Inhale 2 Puffs every 4 (four) hours as needed for Wheezing or Shortness of Breath. [facility] ipratropium -albuteroL 0.5 mg-3 mg(2.5 mg base)/3 mL nebulizer solution 04-19 00:00: 00 Yes [id number] 3mL Inhale 3 mL every 6 (six) hours as needed for Wheezing. [facility] fluticasone propion-bella meteroL (ADVAIR DISKUS) 250-50 mcg/dose inhalation disk 04-19 00:00: 00 Yes 1{puff} Inhale 1 Puff in the morning and 1 Puff in the evening. [facility] tiotropium 18 mcg inhalation 04-19 00:00: 00 Yes 18ug Inhale 1 capsule in the morning. [facility] albuterol 90 mcg/actuati on inhaler 04-19 00:00: 00 Yes 2{puff} Inhale 2 Puffs every 4 (four) hours as needed for Wheezing or Shortness of Breath. [facility] ipratropium -albuteroL 0.5 mg-3 mg(2.5 mg base)/3 mL nebulizer solution 04-19 00:00: 00 Yes [id number] 3mL Inhale 3 mL every 6 (six) hours as needed for Wheezing. [facility] fluticasone propion-bella meteroL (ADVAIR DISKUS) 250-50 mcg/dose inhalation disk 04-19 00:00: 00 Yes 1{puff} Inhale 1 Puff in the morning and 1 Puff in the evening. [facility] tiotropium 18 mcg inhalation 04-19 00:00: 00 Yes 18ug Inhale 1 capsule in the morning. [facility] albuterol 90 mcg/actuati on inhaler 04-19 00:00: 00 Yes 2{puff} Inhale 2 Puffs every 4 (four) hours as needed for Wheezing or Shortness of Breath. [facility] ipratropium -albuteroL 0.5 mg-3 mg(2.5 mg base)/3 mL nebulizer solution 04-19 00:00: 00 Yes [id number] 3mL Inhale 3 mL every 6 (six) hours as needed for Wheezing. [facility] fluticasone propion-bella meteroL (ADVAIR DISKUS) 250-50 mcg/dose inhalation disk 04-19 00:00: 00 Yes 1{puff} Inhale 1 Puff in the morning and 1 Puff in the evening. [facility] albuterol 90 mcg/actuati on inhaler 04-19 00:00: 00 Yes 2{puff} Inhale 2 Puffs every 4 (four) hours as needed for Wheezing or Shortness of Breath. [facility] ipratropium -albuteroL 0.5 mg-3 mg(2.5 mg base)/3 mL nebulizer solution 04-19 00:00: 00 Yes [id number] 3mL Inhale 3 mL every 6 (six) hours as needed for Wheezing. [facility] fluticasone propion-bella meteroL (ADVAIR DISKUS) 250-50 mcg/dose inhalation disk 04-19 00:00: 00 Yes 1{puff} Inhale 1 Puff in the morning and 1 Puff in the evening. [facility] albuterol 90 mcg/actuati on inhaler 04-19 00:00: 00 Yes 2{puff} Inhale 2 Puffs every 4 (four) hours as needed for Wheezing or Shortness of Breath. [facility] ipratropium -albuteroL 0.5 mg-3 mg(2.5 mg base)/3 mL nebulizer solution 04-19 00:00: 00 Yes [id number] 3mL Inhale 3 mL every 6 (six) hours as needed for Wheezing. [facility] fluticasone propion-bella meteroL (ADVAIR DISKUS) 250-50 mcg/dose inhalation disk 04-19 00:00: 00 Yes 1{puff} Inhale 1 Puff in the morning and 1 Puff in the evening. [facility] albuterol 90 mcg/actuati on inhaler 04-19 00:00: 00 Yes 2{puff} Inhale 2 Puffs every 4 (four) hours as needed for Wheezing or Shortness of Breath. [facility] ipratropium -albuteroL 0.5 mg-3 mg(2.5 mg base)/3 mL nebulizer solution 04-19 00:00: 00 Yes [id number] 3mL Inhale 3 mL every 6 (six) hours as needed for Wheezing. [facility] tiotropium 18 mcg inhalation 04-19 00:00: 00 07-08 00:00 :00 No 18ug Inhale 1 capsule in the morning. [facility] albuterol 2.5 mg /3 mL (0.083 %) nebulizer solution 03-03 00:00: 00 Yes [id number] 2.5mg Inhale 3 mL every 4 (four) hours. May also nebulize one extra every 6 hours. [facility] albuterol 2.5 mg /3 mL (0.083 %) nebulizer solution 03-03 00:00: 00 Yes [id number] 2.5mg Inhale 3 mL every 4 (four) hours. May also nebulize one extra every 6 hours. [facility] albuterol 2.5 mg /3 mL (0.083 %) nebulizer solution 03-03 00:00: 00 Yes [id number] 2.5mg Inhale 3 mL every 4 (four) hours. May also nebulize one extra every 6 hours. [facility] albuterol 2.5 mg /3 mL (0.083 %) nebulizer solution 03-03 00:00: 00 Yes [id number] 2.5mg Inhale 3 mL every 4 (four) hours. May also nebulize one extra every 6 hours. [facility] albuterol 2.5 mg /3 mL (0.083 %) nebulizer solution 2022-0 15 00:00: 00 Yes [id number] 2.5mg Inhale 3 mL every 4 (four) hours. May also nebulize one extra every 6 hours. [facility] albuterol 2.5 mg /3 mL (0.083 %) nebulizer solution 2022-0 15 00:00: 00 Yes [id number] 2.5mg Inhale 3 mL every 4 (four) hours. May also nebulize one extra every 6 hours. [facility] albuterol 2.5 mg /3 mL (0.083 %) nebulizer solution 2022-0 15 00:00: 00 Yes [id number] 2.5mg Inhale 3 mL every 4 (four) hours. May also nebulize one extra every 6 hours. [facility] donepeziL 5 mg tablet 2022-0 -13 00:00: 00 Yes [id number] 5mg Take 1 tablet by mouth in the morning. [facility] memantine 5 mg tablet 3-0 6-13 00:00: 00 Yes [id number] 5mg Take 1 tablet by mouth in the morning. [facility] donepeziL 5 mg tablet 2022-0 -13 00:00: 00 Yes [id number] 5mg Take 1 tablet by mouth in the morning. [facility] memantine 5 mg tablet 2022-0 -13 00:00: 00 Yes [id number] 5mg Take 1 tablet by mouth in the morning. [facility] donepeziL 5 mg tablet 3-0 6-13 00:00: 00 Yes [id number] 5mg Take 1 tablet by mouth in the morning. [facility] memantine 5 mg tablet 3-0 6-13 00:00: 00 Yes [id number] 5mg Take 1 tablet by mouth in the morning. [facility] donepeziL 5 mg tablet 3-0 6-13 00:00: 00 Yes [id number] 5mg Take 1 tablet by mouth in the morning. [facility] memantine 5 mg tablet 2023-0 6-13 00:00: 00 Yes [id number] 5mg Take 1 tablet by mouth in the morning. [facility] donepeziL 5 mg tablet 3-0 6-13 00:00: 00 Yes [id number] 5mg Take 1 tablet by mouth in the morning. [facility] memantine 5 mg tablet 3-0 6-13 00:00: 00 Yes [id number] 5mg Take 1 tablet by mouth in the morning. [facility] donepeziL 5 mg tablet 3-0 6-13 00:00: 00 Yes [id number] 5mg Take 1 tablet by mouth in the morning. [facility] memantine 5 mg tablet 2022-0 6-13 00:00: 00 Yes [id number] 5mg Take 1 tablet by mouth in the morning. [facility] donepeziL 5 mg tablet 3-0 6-13 00:00: 00 Yes [id number] 5mg Take 1 tablet by mouth in the morning. [facility] memantine 5 mg tablet 2022-0 -13 00:00: 00 Yes [id number] 5mg Take 1 tablet by mouth in the morning. [facility] donepeziL 5 mg tablet 3-0 6-13 00:00: 00 Yes [id number] 5mg Take 1 tablet by mouth in the morning. [facility] memantine 5 mg tablet 3-0 6-13 00:00: 00 Yes [id number] 5mg Take 1 tablet by mouth in the morning. [facility] donepeziL 5 mg tablet 3-0 -13 00:00: 00 Yes [id number] 5mg Take 1 tablet by mouth in the morning. [facility] memantine 5 mg tablet 3-0 6-13 00:00: 00 Yes [id number] 5mg Take 1 tablet by mouth in the morning. [facility] busPIRone 10 mg tablet 2022-0 02-18 16:15: 12 Yes 10mg Take 1 tablet by mouth in the morning and 1 tablet in the evening. [facility] rivaroxaban 15 mg tablet 2022-0 02-18 16:15: 12 Yes 15mg Take 1 tablet by mouth in the morning. [facility] ASPIRIN ORAL 2022-0 02-18 16:15: 12 Yes 81mg Take 81 mg by mouth in the morning. [facility] bus[facility] tablet 0 02-18 16:15: 12 Yes 10mg Take 1 tablet by mouth in the morning and 1 tablet in the evening. [facility] rivaroxaban 15 mg tablet 0 02-18 16:15: 12 Yes 15mg Take 1 tablet by mouth in the morning. [facility] ASPIRIN ORAL 2022-0 02-18 16:15: 12 Yes 81mg Take 81 mg by mouth in the morning. tablet [facility] busPIRone 10 mg tablet 0 02-18 16:15: 12 Yes 10mg Take 1 tablet by mouth in the morning and 1 tablet in the evening. [facility] riv[facility] mg tablet 0 02-18 16:15: 12 Yes 15mg Take 1 tablet by mouth in the morning. [facility] ASPIRIN ORAL 2022-0 02-18 16:15: 12 Yes 81mg Take 81 mg by mouth in the morning. tablet [facility] busPIRone 10 mg tablet 0 02-18 16:15: 12 Yes 10mg Take 1 tablet by mouth in the morning and 1 tablet in the evening. [facility] rivar[facility] 15 mg tablet 02-18 16:15: 12 Yes 15mg Take 1 tablet by mouth in the morning. [facility] ASPIRIN ORAL 2022-0 02-18 16:15: 12 Yes 81mg Take 81 mg by mouth in the morning. tablet [facility] busPIRone 10 mg tablet 2022-0 02-18 16:15: 12 Yes 10mg Take 1 tablet by mouth in the morning and 1 tablet in the evening. [facility] riv[facility] 15 mg tablet 2022-0 02-18 16:15: 12 Yes 15mg Take 1 tablet by mouth in the morning. [facility] ASPIRIN ORAL 2022-0 02-18 16:15: 12 Yes 81mg Take 81 mg by mouth in the morning. tablet [facility] busPIRone 10 mg tablet 2022-0 02-18 16:15: 12 Yes 10mg Take 1 tablet by mouth in the morning and 1 tablet in the evening. [facility] rivaroxaban 15 mg tablet 2022-0 02-18 16:15: 12 Yes 15mg Take 1 tablet by mouth in the morning. [facility] ASPIRIN ORAL 2022-0 02-18 16:15: 12 Yes 81mg Take 81 mg by mouth in the morning. tablet [facility] busPIRone 10 mg tablet 0 02-18 16:15: 12 Yes 10mg Take 1 tablet by mouth in the morning and 1 tablet in the evening. [facility] rivaroxaban 15 mg tablet 0 02-18 16:15: 12 Yes 15mg Take 1 tablet by mouth in the morning. [facility] ASPIRIN ORAL 2022-0 02-18 16:15: 12 Yes 81mg Take 81 mg by mouth in the morning. tablet [facility] busPIRone 10 mg tablet 02-18 16:15: 12 Yes 10mg Take 1 tablet by mouth in the morning and 1 tablet in the evening. [facility] rivaroxaban 15 mg tablet 02-18 16:15: 12 Yes 15mg Take 1 tablet by mouth in the morning. [facility] ASPIRIN ORAL 2022-0 02-18 16:15: 12 Yes 81mg Take 81 mg by mouth in the morning. tablet [facility] busPIRone 10 mg tablet 0 02-18 16:15: 12 Yes 10mg Take 1 tablet by mouth in the morning and 1 tablet in the evening. [facility] rivaroxaban 15 mg tablet 2022-0 02-18 16:15: 12 Yes 15mg Take 1 tablet by mouth in the morning. [facility] ASPIRIN ORAL 2022-0 02-18 16:15: 12 Yes 81mg Take 81 mg by mouth in the morning. tablet [facility] busPIRone 10 mg tablet 2022-0 02-18 16:15: 12 Yes 10mg Take 1 tablet by mouth in the morning and 1 tablet in the evening. [facility] rivaroxaban 15 mg tablet 02-18 16:15: 12 Yes 15mg Take 1 tablet by mouth in the morning. [facility] ASPIRIN ORAL 0 02-18 16:15: 12 Yes 81mg Take 81 mg by mouth in the morning. tablet [facility] busPIRone 10 mg tablet 02-18 16:15: 12 Yes 10mg Take 1 tablet by mouth in the morning and 1 tablet in the evening. [facility] rivaroxaban 15 mg tablet 02-18 16:15: 12 Yes 15mg Take 1 tablet by mouth in the morning. [facility] ASPIRIN ORAL 02-18 16:15: 12 Yes 81mg Take 81 mg by mouth in the morning. tablet [facility] busPIRone 10 mg tablet 02-18 16:15: 12 Yes 10mg Take 1 tablet by mouth in the morning and 1 tablet in the evening. [facility] rivaroxaban 15 mg tablet 02-18 16:15: 12 Yes 15mg Take 1 tablet by mouth in the morning. [facility] ASPIRIN ORAL 0 02-18 16:15: 12 Yes 81mg Take 81 mg by mouth in the morning. tablet [facility] busPIRone 10 mg tablet 02-18 16:15: 12 Yes 10mg Take 1 tablet by mouth in the morning and 1 tablet in the evening. [facility] rivaroxaban 15 mg tablet 02-18 16:15: 12 Yes 15mg Take 1 tablet by mouth in the morning. [facility] ASPIRIN ORAL 0 02-18 16:15: 12 Yes 81mg Take 81 mg by mouth in the morning. tablet [facility] predniSONE 20 mg tablet 02-18 00:00: 00 02-22 04:59 :00 No [id number] 40mg Take 2 tablets by mouth in the morning for 3 days. [facility] predniSONE 20 mg tablet 02-18 00:00: 00 02-22 04:59 :00 No [id number] 40mg Take 2 tablets by mouth in the morning for 3 days. [facility] predniSONE 20 mg tablet 02-18 00:00: 00 02-22 04:59 :00 No [id number] 40mg Take 2 tablets by mouth in the morning for 3 days. [facility] midodrine 5 mg tablet 02-17 00:00: 00 Yes [id number] 5mg Take 1 tablet by mouth every 8 (eight) hours as needed (Hypotensi on SBP <95 or DBP <50). [facility] midodrine 5 mg tablet 02-17 00:00: 00 Yes [id number] 5mg Take 1 tablet by mouth every 8 (eight) hours as needed (Hypotensi on SBP <95 or DBP <50). [facility] midodrine 5 mg tablet 02-17 00:00: 00 Yes [id number] 5mg Take 1 tablet by mouth every 8 (eight) hours as needed (Hypotensi on SBP <95 or DBP <50). [facility] midodrine 5 mg tablet 02-17 00:00: 00 Yes [id number] 5mg Take 1 tablet by mouth every 8 (eight) hours as needed (Hypotensi on SBP <95 or DBP <50). [facility] midodrine 5 mg tablet 02-17 00:00: 00 Yes [id number] 5mg Take 1 tablet by mouth every 8 (eight) hours as needed (Hypotensi on SBP <95 or DBP <50). [facility] midodrine 5 mg tablet 0 02-17 00:00: 00 Yes [id number] 5mg Take 1 tablet by mouth every 8 (eight) hours as needed (Hypotensi on SBP <95 or DBP <50). [facility] midodrine 5 mg tablet 02-17 00:00: 00 Yes [id number] 5mg Take 1 tablet by mouth every 8 (eight) hours as needed (Hypotensi on SBP <95 or DBP <50). [facility] midodrine 5 mg tablet 02-17 00:00: 00 Yes [id number] 5mg Take 1 tablet by mouth every 8 (eight) hours as needed (Hypotensi on SBP <95 or DBP <50). [facility] midodrine 5 mg tablet 02-17 00:00: 00 Yes [id number] 5mg Take 1 tablet by mouth every 8 (eight) hours as needed (Hypotensi on SBP <95 or DBP <50). [facility] midodrine 5 mg tablet 02-17 00:00: 00 Yes [id number] 5mg Take 1 tablet by mouth every 8 (eight) hours as needed (Hypotensi on SBP <95 or DBP <50). [facility] midodrine 5 mg tablet 02-17 00:00: 00 Yes [id number] 5mg Take 1 tablet by mouth every 8 (eight) hours as needed (Hypotensi on SBP <95 or DBP <50). [facility] midodrine 5 mg tablet 02-17 00:00: 00 Yes [id number] 5mg Take 1 tablet by mouth every 8 (eight) hours as needed (Hypotensi on SBP <95 or DBP <50). [facility] midodrine 5 mg tablet 02-17 00:00: 00 Yes [id number] 5mg Take 1 tablet by mouth every 8 (eight) hours as needed (Hypotensi on SBP <95 or DBP <50). [facility] midodrine (PROAMATINE ) tablet 5 mg 02-16 19:00: 00 Yes 5mg 5 mg, Oral, Q8H, First dose on Tue02/16/23 at 1400, Until Discontinu ed, Routine [facility] rivaroxaban (XARELTO) tablet 15 mg 02-16 14:00: 00 Yes 15mg 15 mg, Oral, DAILY, First dose on Tue02/16/23 at 0900, Until Discontinu ed, Routine [facility] montelukast (SINGULAIR) tablet 10 mg 02-16 14:00: 00 Yes 10mg 10 mg, Oral, DAILY, First dose on Tue02/16/23 at 0900, Until Discontinu ed, Routine [facility] memantine (NAMENDA) tablet 5 mg 02-16 14:00: 00 Yes 5mg 5 mg, Oral, DAILY, First dose on Tue02/16/23 at 0900, Until Discontinu ed, Routine
production team member approving Restricted medication : DEDRICK TOTH [facility] donepeziL (ARICEPT) tablet 5 mg 02-16 14:00: 00 Yes 5mg 5 mg, Oral, DAILY, First dose on Tue02/16/23 at 0900, Until Discontinu ed, Routine [facility] aspirin EC tablet 81 mg 02-16 14:00: 00 Yes 81mg 81 mg, Oral, DAILY, First dose on Tue02/16/23 at 0900, Until Discontinu ed [facility] docusate (COLACE) capsule 100 mg 02-16 14:00: 00 Yes 100mg 100 mg, Oral, DAILY, First dose on Tue02/16/23 at 0900, Until Discontinu ed, Routine [facility] predniSONE (DELTASONE) tablet 40 mg 02-16 14:00: 00 02-21 13:59 :00 No 40mg 40 mg, Oral, DAILY, 5 doses, First dose on Tue02/16/23 at 0900, Last dose on Tue02/20/23 at 0900, Routine [facility] sulfur hexafluorid e microsphr (LUMASON) injection 5 mL 02-16 14:00: 00 02-16 14:00 :00 No [id number] 5mL 5 mL, Intravenou s, ONCE, 1 dose, On Tue02/16/23 at 0900, Routine
production team member approving Restricted medication : STEFFANIE REYES [facility] budesonide- formoteroL (SYMBICORT) 160-4.5 mcg/actuati on inhaler 2 Puff 02-16 13:00: 00 Yes 2{puff} 2 Puff, Inhalation , BID, First dose on Tue02/16/23 at 0800, Until Discontinu ed [facility] busPIRone (BUSPAR) tablet 10 mg 02-16 13:00: 00 Yes 10mg 10 mg, Oral, BID, First dose on Tue02/16/23 at 0800, Until Discontinu ed, Routine [facility] methylpredn isolone sod succ (SOLU-MEDRO L) injection 60 mg 02-16 05:43: 00 02-16 05:51 :00 No 60mg 60 mg, Intravenou s, ONCE, 1 dose, On Tue02/16/23 at 0045, 2 mL [facility] levoFLOXaci n in D5W (LEVAQUIN) [...]
Re stricted use approved by: ADC PROVIDER [facility] doxycycline hyclate (Vibramycin ) capsule 100 mg 02-16 01:02: 11 02-16 21:57 :07 No 100mg 100 mg, Oral, Q12H ABX, 10 doses, First dose on Tue02/15/23 at 2015, Last dose on Tue02/20/23 at 0815, MICHAEL
Re ason for Anti-Infec tive: Documented Infection< br>Documen anirudh Infection Site: Respirator y
Durat ion of Therapy: 7 days [facility] NaCl 0.9% (NS) IV infusion 1,000 mL 02-16 01:00: 00 02-16 12:47 :05 No 1000mL at 100 mL/hr, IV Infusion, CONTINUOUS , Starting on Tue02/15/23 at 2000, Until Tue02/16/23 at 0747, Routine [facility] ipratropium -albuteroL (DUONEB) 0.5 mg-3 mg(2.5 mg base)/3 mL nebulizer solution 3 mL 02-16 00:53: 35 Yes 3mL 3 mL, Inhalation , Q6HPRN, Starting on Tue02/15/23 at 1952, Until Discontinu ed, Routine, Wheezing, Shortness of Breath [facility] HYDROcodone -acetaminop hen (NORCO) 10-325 mg tablet 1 tablet 02-16 00:52: 26 Yes 1{tbl} 1 tablet, Oral, Q6HPRN, Starting on Tue02/15/23 at 1951, Until Discontinu ed, Routine, Pain (scale 7-10) [facility] traMADoL (ULTRAM) tablet 50 mg 02-16 00:52: 22 02-18 00:51 :22 No 50mg 50 mg, Oral, Q8HPRN, Starting on Tue02/15/23 at 1951, Until Elizabeth 02/17/23 at 1950, Routine, Pain (scale 4-6) [facility] acetaminoph en (TYLENOL) tablet 650 mg 02-16 00:52: 16 Yes 650mg 650 mg, Oral, Q6HPRN, Starting on Tue02/15/23 at 1951, Until Discontinu ed, Routine, Pain (scale 1-3) [facility] NaCl 0.9% (NS) bolus infusion 1,000 mL 02-15 22:15: 00 02-15 22:51 :00 No 1000mL at 999 mL/hr, 1,000 mL, IV Infusion, ONCE, 1 dose, On Tue02/15/23 at 1715, MICHAEL [facility] NaCl 0.9% (NS) bolus infusion 1,000 mL 02-15 21:30: 00 02-15 22:43 :00 No 1000mL at 999 mL/hr, 1,000 mL, IV Infusion, ONCE, 1 dose, On Tue02/15/23 at 1630, [facility] NaCl 0.9% (NS) bolus infusion 1,000 mL 02-15 20:45: 00 02-15 22:43 :00 No 1000mL at 999 mL/hr, 1,000 mL, IV Infusion, ONCE, 1 dose, On Tu02/15/23 at 1545, [facility] ipratropium -albuteroL (DUONEB) 0.5 mg-3 mg(2.5 mg base)/3 mL nebulizer solution 3 mL 02-05 22:15: 00 02-06 10:14 :00 No 3mL 3 mL, Inhalation , ONCE, 1 dose, On 02/05/23 at 1715, [facility] ipratropium -albuteroL (DUONEB) 0.5 mg-3 mg(2.5 mg base)/3 mL nebulizer solution 3 mL 02-05 21:15: 00 02-05 20:17 :00 No 3mL 3 mL, Inhalation , ONCE, 1 dose, On 02/05/23 at 1615, [facility] predniSONE (DELTASONE) tablet 40 mg 02-05 20:15: 02-05 20:18 :00 No 40mg 40 mg, Oral, ONCE, 1 dose, On 02/05/23 at 1515, [facility] levalbutero l (XOPENEX) nebulizer solution 2.5 mg 02-04 21:15: 00 02-04 20:31 :00 No 2.5mg 2.5 mg, Inhalation , ONCE, 1 dose, On Tue02/04/23 at 1615, [facility] ipratropium (ATROVENT) 0.02 % nebulizer solution 0.5 mg 02-04 21:15: 00 02-04 20:31 :00 No .5mg 0.5 mg, Inhalation , ONCE, 1 dose, On Tue02/04/23 at 1615, [facility] albuterol 90 mcg/actuati on inhaler 02-04 00:00: 00 Yes [id number] 2{puff} Inhale 2 Puffs every 4 (four) hours as needed for Wheezing or Shortness of Breath. [facility] albuterol 90 mcg/actuati on inhaler 02-04 00:00: 00 Yes [id number] 2{puff} Inhale 2 Puffs every 4 (four) hours as needed for Wheezing or Shortness of Breath. [facility] albuterol 90 mcg/actuati on inhaler 02-04 00:00: 00 Yes [id number] 2{puff} Inhale 2 Puffs every 4 (four) hours as needed for Wheezing or Shortness of Breath. [facility] albuterol 90 mcg/actuati on inhaler 02-04 00:00: 00 Yes [id number] 2{puff} Inhale 2 Puffs every 4 (four) hours as needed for Wheezing or Shortness of Breath. [facility] albuterol 90 mcg/actuati on inhaler 02-04 00:00: 00 Yes [id number] 2{puff} Inhale 2 Puffs every 4 (four) hours as needed for Wheezing or Shortness of Breath. [facility] albuterol 90 mcg/actuati on inhaler 02-04 00:00: 00 Yes [id number] 2{puff} Inhale 2 Puffs every 4 (four) hours as needed for Wheezing or Shortness of Breath. [facility] albuterol 90 mcg/actuati on inhaler 02-04 00:00: 00 Yes [id number] 2{puff} Inhale 2 Puffs every 4 (four) hours as needed for Wheezing or Shortness of Breath. [facility] albuterol 90 mcg/actuati on inhaler 02-04 00:00: 00 Yes [id number] 2{puff} Inhale 2 Puffs every 4 (four) hours as needed for Wheezing or Shortness of Breath. [facility] albuterol 90 mcg/actuati on inhaler 02-04 00:00: 00 Yes [id number] 2{puff} Inhale 2 Puffs every 4 (four) hours as needed for Wheezing or Shortness of Breath. [facility] albuterol 90 mcg/actuati on inhaler 02-04 00:00: 00 Yes [id number] 2{puff} Inhale 2 Puffs every 4 (four) hours as needed for Wheezing or Shortness of Breath. [facility] albuterol 90 mcg/actuati on inhaler 02-04 00:00: 00 04-19 00:00 :00 No [id number] 2{puff} Inhale 2 Puffs every 4 (four) hours as needed for Wheezing or Shortness of Breath. [facility] albuterol 90 mcg/actuati on inhaler 02-04 00:00: 00 04-19 00:00 :00 No [id number] 2{puff} Inhale 2 Puffs every 4 (four) hours as needed for Wheezing or Shortness of Breath. [facility] ipratropium -albuteroL (DUONEB) 0.5 mg-3 mg(2.5 mg base)/3 mL nebulizer solution 3 mL 02-03 21:00: 00 Yes 3mL 3 mL, Inhalation , QID, First dose on Tue02/03/23 at 1600, Until Discontinu ed, Routine [facility] methylpredn isolone sod succ (SOLU-MEDRO L) injection 125 mg 02-03 18:45: 00 02-03 18:16 :00 No 125mg 125 mg, Intravenou s, ONCE, 1 dose, On Tue02/03/23 at 1345, 2 mL [facility] ipratropium -albuteroL (DUONEB) 0.5 mg-3 mg(2.5 mg base)/3 mL nebulizer solution 3 mL 02-02 23:15: 00 02-02 22:13 :00 No 3mL 3 mL, Inhalation , ONCE, 1 dose, On Tue02/02/23 at 1815, Routine [facility] albuterol 90 mcg/actuati on inhaler 0 15 00:00: 00 Yes [id number] 2{puff} Inhale 2 Puffs every 4 (four) hours as needed for Wheezing, Shortness of Breath or Bronchospa sm. [facility] fluticasone propion-bella meteroL (ADVAIR DISKUS) 250-50 mcg/dose inhalation disk 01-31 00:00: 00 Yes [id number] 1{puff} Inhale 1 Puff in the morning and 1 Puff in the evening. [facility] montelukast 10 mg tablet 01-31 00:00: 00 Yes [id number] 10mg Take 1 tablet by mouth in the morning. [facility] tiotropium 18 mcg inhalation 01-31 00:00: 00 Yes [id number] 18ug Inhale 1 capsule in the morning. [facility] albuterol 90 mcg/actuati on inhaler 01-31 00:00: 00 Yes [id number] 2{puff} Inhale 2 Puffs every 4 (four) hours as needed for Wheezing, Shortness of Breath or Bronchospa sm. [facility] fluticasone propion-bella meteroL (ADVAIR DISKUS) 250-50 mcg/dose inhalation disk 01-31 00:00: 00 Yes [id number] 1{puff} Inhale 1 Puff in the morning and 1 Puff in the evening. [facility] montelukast 10 mg tablet 01-31 00:00: 00 Yes [id number] 10mg Take 1 tablet by mouth in the morning. [facility] tiotropium 18 mcg inhalation 0 15 00:00: 00 Yes [id number] 18ug Inhale 1 capsule in the morning. [facility] albuterol 90 mcg/actuati on inhaler 01-31 00:00: 00 Yes [id number] 2{puff} Inhale 2 Puffs every 4 (four) hours as needed for Wheezing, Shortness of Breath or Bronchospa sm. [facility] fluticasone propion-bella meteroL (ADVAIR DISKUS) 250-50 mcg/dose inhalation disk 01-31 00:00: 00 Yes [id number] 1{puff} Inhale 1 Puff in the morning and 1 Puff in the evening. [facility] montelukast 10 mg tablet 01-31 00:00: 00 Yes [id number] 10mg Take 1 tablet by mouth in the morning. [facility] tiotropium 18 mcg inhalation 01-31 00:00: 00 Yes [id number] 18ug Inhale 1 capsule in the morning. [facility] albuterol 90 mcg/actuati on inhaler 01-31 00:00: 00 Yes [id number] 2{puff} Inhale 2 Puffs every 4 (four) hours as needed for Wheezing, Shortness of Breath or Bronchospa sm. [facility] fluticasone propion-bella meteroL (ADVAIR DISKUS) 250-50 mcg/dose inhalation disk 01-31 00:00: 00 Yes [id number] 1{puff} Inhale 1 Puff in the morning and 1 Puff in the evening. [facility] montelukast 10 mg tablet 01-31 00:00: 00 Yes [id number] 10mg Take 1 tablet by mouth in the morning. [facility] tiotropium 18 mcg inhalation 01-31 00:00: 00 Yes [id number] 18ug Inhale 1 capsule in the morning. [facility] fluticasone propion-bella meteroL (ADVAIR DISKUS) 250-50 mcg/dose inhalation disk 01-31 00:00: 00 Yes [id number] 1{puff} Inhale 1 Puff in the morning and 1 Puff in the evening. [facility] montelukast 10 mg tablet 01-31 00:00: 00 Yes [id number] 10mg Take 1 tablet by mouth in the morning. [facility] tiotropium 18 mcg inhalation 2023-0 5-15 00:00: 00 Yes [id number] 18ug Inhale 1 capsule in the morning. [facility] fluticasone propion-bella meteroL (ADVAIR DISKUS) 250-50 mcg/dose inhalation disk 3-0 5-15 00:00: 00 Yes [id number] 1{puff} Inhale 1 Puff in the morning and 1 Puff in the evening. [facility] montelukast 10 mg tablet 2022-0 5-15 00:00: 00 Yes [id number] 10mg Take 1 tablet by mouth in the morning. [facility] tiotropium 18 mcg inhalation 3-0 5-15 00:00: 00 Yes [id number] 18ug Inhale 1 capsule in the morning. [facility] fluticasone propion-bella meteroL (ADVAIR DISKUS) 250-50 mcg/dose inhalation disk 2022-0 5-15 00:00: 00 Yes [id number] 1{puff} Inhale 1 Puff in the morning and 1 Puff in the evening. [facility] montelukast 10 mg tablet 2022-0 -15 00:00: 00 Yes [id number] 10mg Take 1 tablet by mouth in the morning. [facility] tiotropium 18 mcg inhalation 2022-0 -15 00:00: 00 Yes [id number] 18ug Inhale 1 capsule in the morning. [facility] fluticasone propion-bella meteroL (ADVAIR DISKUS) 250-50 mcg/dose inhalation disk 2022-0 -15 00:00: 00 Yes [id number] 1{puff} Inhale 1 Puff in the morning and 1 Puff in the evening. [facility] montelukast 10 mg tablet 3-0 5-15 00:00: 00 Yes [id number] 10mg Take 1 tablet by mouth in the morning. [facility] tiotropium 18 mcg inhalation 3-0 5-15 00:00: 00 Yes [id number] 18ug Inhale 1 capsule in the morning. [facility] fluticasone propion-bella meteroL (ADVAIR DISKUS) 250-50 mcg/dose inhalation disk 3-0 5-15 00:00: 00 Yes [id number] 1{puff} Inhale 1 Puff in the morning and 1 Puff in the evening. [facility] montelukast 10 mg tablet 3-0 5-15 00:00: 00 Yes [id number] 10mg Take 1 tablet by mouth in the morning. [facility] tiotropium 18 mcg inhalation 3-0 5-15 00:00: 00 Yes [id number] 18ug Inhale 1 capsule in the morning. [facility] fluticasone propion-bella meteroL (ADVAIR DISKUS) 250-50 mcg/dose inhalation disk 3-0 5-15 00:00: 00 Yes [id number] 1{puff} Inhale 1 Puff in the morning and 1 Puff in the evening. [facility] montelukast 10 mg tablet 3-0 5-15 00:00: 00 Yes [id number] 10mg Take 1 tablet by mouth in the morning. [facility] tiotropium 18 mcg inhalation 3-0 5-15 00:00: 00 Yes [id number] 18ug Inhale 1 capsule in the morning. [facility] fluticasone propion-bella meteroL (ADVAIR DISKUS) 250-50 mcg/dose inhalation disk 3-0 -15 00:00: 00 Yes [id number] 1{puff} Inhale 1 Puff in the morning and 1 Puff in the evening. [facility] montelukast 10 mg tablet 2022-0 -15 00:00: 00 Yes [id number] 10mg Take 1 tablet by mouth in the morning. [facility] tiotropium 18 mcg inhalation 3-0 5-15 00:00: 00 Yes [id number] 18ug Inhale 1 capsule in the morning. [facility] fluticasone propion-bella meteroL (ADVAIR DISKUS) 250-50 mcg/dose inhalation disk 3-0 5-15 00:00: 00 Yes [id number] 1{puff} Inhale 1 Puff in the morning and 1 Puff in the evening. [facility] montelukast 10 mg tablet 3-0 5-15 00:00: 00 Yes [id number] 10mg Take 1 tablet by mouth in the morning. [facility] tiotropium 18 mcg inhalation 3-0 5-15 00:00: 00 Yes [id number] 18ug Inhale 1 capsule in the morning. [facility] fluticasone propion-bella meteroL (ADVAIR DISKUS) 250-50 mcg/dose inhalation disk 3-0 5-15 00:00: 00 Yes [id number] 1{puff} Inhale 1 Puff in the morning and 1 Puff in the evening. [facility] montelukast 10 mg tablet 2022-0 5-15 00:00: 00 Yes [id number] 10mg Take 1 tablet by mouth in the morning. [facility] tiotropium 18 mcg inhalation 3-0 5-15 00:00: 00 Yes [id number] 18ug Inhale 1 capsule in the morning. [facility] fluticasone propion-bella meteroL (ADVAIR DISKUS) 250-50 mcg/dose inhalation disk 3-0 5-15 00:00: 00 Yes [id number] 1{puff} Inhale 1 Puff in the morning and 1 Puff in the evening. [facility] montelukast 10 mg tablet 2022-0 5-15 00:00: 00 Yes [id number] 10mg Take 1 tablet by mouth in the morning. [facility] tiotropium 18 mcg inhalation 3-0 5-15 00:00: 00 Yes [id number] 18ug Inhale 1 capsule in the morning. [facility] montelukast 10 mg tablet 3-0 5-15 00:00: 00 Yes [id number] 10mg Take 1 tablet by mouth in the morning. [facility] montelukast 10 mg tablet 3-0 5-15 00:00: 00 Yes [id number] 10mg Take 1 tablet by mouth in the morning. [facility] montelukast 10 mg tablet 3-0 5-15 00:00: 00 Yes [id number] 10mg Take 1 tablet by mouth in the morning. [facility] montelukast 10 mg tablet 01-31 00:00: 00 Yes [id number] 10mg Take 1 tablet by mouth in the morning. [facility] montelukast 10 mg tablet 01-31 00:00: 00 Yes [id number] 10mg Take 1 tablet by mouth in the morning. [facility] montelukast 10 mg tablet 01-31 00:00: 00 Yes [id number] 10mg Take 1 tablet by mouth in the morning. [facility] fluticasone propion-bella meteroL (ADVAIR DISKUS) 250-50 mcg/dose inhalation disk 01-31 00:00: 00 04-19 00:00 :00 No [id number] 1{puff} Inhale 1 Puff in the morning and 1 Puff in the evening. [facility] tiotropium 18 mcg inhalation 01-31 00:00: 00 04-19 00:00 :00 No [id number] 18ug Inhale 1 capsule in the morning. [facility] fluticasone propion-bella meteroL (ADVAIR DISKUS) 250-50 mcg/dose inhalation disk 01-31 00:00: 00 04-19 00:00 :00 No [id number] 1{puff} Inhale 1 Puff in the morning and 1 Puff in the evening. [facility] tiotropium 18 mcg inhalation 01-31 00:00: 00 04-19 00:00 :00 No [id number] 18ug Inhale 1 capsule in the morning. [facility] albuterol 90 mcg/actuati on inhaler 01-31 00:00: 00 02-04 00:00 :00 No [id number] 2{puff} Inhale 2 Puffs every 4 (four) hours as needed for Wheezing, Shortness of Breath or Bronchospa sm. [facility] ipratropium -albuteroL (DUONEB) 0.5 mg-3 mg(2.5 mg base)/3 mL nebulizer solution 3 mL 01-29 14:30: 00 01-29 13:29 :00 No 3mL 3 mL, Inhalation , ONCE, 1 dose, On 01/29/23 at 0930, [facility] predniSONE (DELTASONE) tablet 60 mg 01-29 13:30: 00 01-29 13:22 :00 No 60mg 60 mg, Oral, ONCE, 1 dose, On 01/29/23 at 0830, [facility] ipratropium -albuteroL (DUONEB) 0.5 mg-3 mg(2.5 mg base)/3 mL nebulizer solution 3 mL 01-27 13:00: 00 Yes 3mL 3 mL, Inhalation , QID, First dose on Elizabeth 01/27/23 at 0800, Until Discontinu ed, Routine [facility] ipratropium -albuteroL (DUONEB) 0.5 mg-3 mg(2.5 mg base)/3 mL nebulizer solution 3 mL 01-24 18:00: 00 01-24 18:15 :00 No 3mL 3 mL, Inhalation , ONCE, 1 dose, On Tue01/24/23 at 1300, [facility] furosemide (LASIX) injection 40 mg 01-24 18:00: 00 01-24 18:42 :00 No 40mg 40 mg, IV Push, ONCE, 1 dose, On Tue01/24/23 at 1300, [facility] aspirin tablet 325 mg 01-24 18:00: 00 01-24 18:44 :00 No 325mg 325 mg, Oral, ONCE, 1 dose, On Tue01/24/23 at 1300, STAT [facility] busPIRone 10 mg tablet 01-24 15:48: 43 Yes 10mg Take 1 tablet by mouth in the morning and 1 tablet in the evening. [facility] rivaroxaban 15 mg tablet 01-24 15:48: 43 Yes 15mg Take 1 tablet by mouth in the morning. [facility] ASPIRIN ORAL 2023-0 5-08 15:48: 43 Yes 81mg Take 81 mg by mouth in the morning. tablet [facility] busPIRone 10 mg tablet 3-0 5-08 15:48: 43 Yes 10mg Take 1 tablet by mouth in the morning and 1 tablet in the evening. [facility] tablet 3-0 5-08 15:48: 43 Yes 15mg Take 1 tablet by mouth in the morning. [facility] ASPIRIN ORAL 2023-0 5-08 15:48: 43 Yes 81mg Take 81 mg by mouth in the morning. tablet [facility] busPIRone 10 mg tablet 3-0 5-08 15:48: 43 Yes 10mg Take 1 tablet by mouth in the morning and 1 tablet in the evening. [facility] rivaroxaban 15 mg tablet 2022-0 5-08 15:48: 43 Yes 15mg Take 1 tablet by mouth in the morning. [facility] ASPIRIN ORAL 3-0 5-08 15:48: 43 Yes 81mg Take 81 mg by mouth in the morning. tablet [facility] busPIRone 10 mg tablet 2022-0 5-08 15:48: 43 Yes 10mg Take 1 tablet by mouth in the morning and 1 tablet in the evening. [facility] rivaroxaban 15 mg tablet 2022-0 5-08 15:48: 43 Yes 15mg Take 1 tablet by mouth in the morning. [facility] ASPIRIN ORAL 2023-0 5-08 15:48: 43 Yes 81mg Take 81 mg by mouth in the morning. tablet [facility] busPIRone 10 mg tablet 3-0 5-08 15:48: 43 Yes 10mg Take 1 tablet by mouth in the morning and 1 tablet in the evening. [facility] rivaroxaban 15 mg tablet 3-0 5-08 15:48: 43 Yes 15mg Take 1 tablet by mouth in the morning. [facility] ASPIRIN ORAL 2023-0 5-08 15:48: 43 Yes 81mg Take 81 mg by mouth in the morning. tablet [facility] busPIRone 10 mg tablet 2023-0 5-08 15:48: 43 Yes 10mg Take 1 tablet by mouth in the morning and 1 tablet in the evening. [facility] rivaroxaban 15 mg tablet 3-0 5-08 15:48: 43 Yes 15mg Take 1 tablet by mouth in the morning. [facility] ASPIRIN ORAL 2023-0 5-08 15:48: 43 Yes 81mg Take 81 mg by mouth in the morning. tablet [facility] busPIRone 10 mg tablet 3-0 5-08 15:48: 43 Yes 10mg Take 1 tablet by mouth in the morning and 1 tablet in the evening. [facility] rivaroxaban 15 mg tablet 3-0 5-08 15:48: 43 Yes 15mg Take 1 tablet by mouth in the morning. [facility] ASPIRIN ORAL 3-0 5-08 15:48: 43 Yes 81mg Take 81 mg by mouth in the morning. tablet [facility] busPIRone 10 mg tablet 2022-0 5-08 15:48: 43 Yes 10mg Take 1 tablet by mouth in the morning and 1 tablet in the evening. [facility] rivaroxaban 15 mg tablet 2022-0 5-08 15:48: 43 Yes 15mg Take 1 tablet by mouth in the morning. [facility] ASPIRIN ORAL 2023-0 5-08 15:48: 43 Yes 81mg Take 81 mg by mouth in the morning. tablet [facility] busPIRone 10 mg tablet 3-0 5-08 15:48: 43 Yes 10mg Take 1 tablet by mouth in the morning and 1 tablet in the evening. [facility] rivaroxaban 15 mg tablet 3-0 5-08 15:48: 43 Yes 15mg Take 1 tablet by mouth in the morning. [facility] ASPIRIN ORAL 2023-0 5-08 15:48: 43 Yes 81mg Take 81 mg by mouth in the morning. tablet [facility] busPIRone 10 mg tablet 2023-0 5-08 15:48: 43 Yes 10mg Take 1 tablet by mouth in the morning and 1 tablet in the evening. [facility] rivaroxaban 15 mg tablet 2022-0 08 15:48: 43 Yes 15mg Take 1 tablet by mouth in the morning. [facility] ASPIRIN ORAL 2022-0 01-24 15:48: 43 Yes 81mg Take 81 mg by mouth in the morning. tablet [facility] busPIRone 10 mg tablet 2022-0 01-24 15:48: 43 Yes 10mg Take 1 tablet by mouth in the morning and 1 tablet in the evening. [facility] rivaroxaban 15 mg tablet 2022-0 01-24 15:48: 43 Yes 15mg Take 1 tablet by mouth in the morning. [facility] ASPIRIN ORAL 2022-0 01-24 15:48: 43 Yes 81mg Take 81 mg by mouth in the morning. tablet [facility] busPIRone 10 mg tablet 2022-0 01-24 15:48: 43 Yes 10mg Take 1 tablet by mouth in the morning and 1 tablet in the evening. [facility] rivaroxaban 15 mg tablet 2022-0 01-24 15:48: 43 Yes 15mg Take 1 tablet by mouth in the morning. [facility] ASPIRIN ORAL 2022-0 01-24 15:48: 43 Yes 81mg Take 81 mg by mouth in the morning. tablet [facility] busPIRone 10 mg tablet 2022-0 01-24 15:48: 43 Yes 10mg Take 1 tablet by mouth in the morning and 1 tablet in the evening. [facility] rivaroxaban 15 mg tablet 0 01-24 15:48: 43 Yes 15mg Take 1 tablet by mouth in the morning. [facility] ASPIRIN ORAL 2022-0 08 15:48: 43 Yes 81mg Take 81 mg by mouth in the morning. tablet [facility] levalbutero l (XOPENEX) nebulizer solution 1.25 mg 01-23 00:15: 00 01-22 23:35 :00 No 1.25mg 1.25 mg, Inhalation , ONCE, 1 dose, On 01/22/23 at 1915, Routine [facility] ipratropium (ATROVENT) 0.02 % nebulizer solution 0.5 mg 01-22 23:30: 00 01-22 23:36 :00 No .5mg 0.5 mg, Inhalation , ONCE, 1 dose, On Tue01/22/23 at 1830, MICHAEL [facility] diltiazem (CARDIZEM) tablet 30 mg 01-21 23:00: 00 Yes 30mg 30 mg, Oral, Q6H, First dose on Tue01/21/23 at 1800, Until Discontinu ed, Routine [facility] methylpredn isolone sod succ (SOLU-MEDRO L) injection 125 mg 01-21 23:00: 00 Yes 125mg 125 mg, Intravenou s, Q6H, First dose on Tue01/21/23 at 1800, Until Discontinu ed, Routine [facility] ipratropium -albuteroL (DUONEB) 0.5 mg-3 mg(2.5 mg base)/3 mL nebulizer solution 3 mL 01-21 20:45: 00 01-21 19:54 :00 No 3mL 3 mL, Inhalation , ONCE, 1 dose, On Tue01/21/23 at 1545, Routine [facility] diltiazem (CARDIZEM IV) injection 15 mg 01-21 19:45: 00 01-21 20:06 :00 No 15mg 15 mg, IV Push, ONCE, 1 dose, On Tue01/21/23 at 1445, STAT
Fa culty member approving Restricted medication : [facility] NaCl 0.9% (NS) bolus infusion 1,000 mL 01-21 19:45: 00 01-21 22:17 :00 No 1000mL at 999 mL/hr, 1,000 mL, IV Infusion, ONCE, 1 dose, On Tue01/21/23 at 1445, STAT [facility] predniSONE 20 mg tablet 01-20 00:00: 00 01-25 04:59 :00 No [id number] 40mg Take 2 tablets by mouth in the morning for 4 days. [facility] predniSONE 20 mg tablet 3-0 5-04 00:00: 00 01-25 04:59 :00 No [id number] 40mg Take 2 tablets by mouth in the morning for 4 days. [facility] predniSONE 20 mg tablet 3-0 5-04 00:00: 00 01-25 04:59 :00 No [id number] 40mg Take 2 tablets by mouth in the morning for 4 days. [facility] predniSONE 20 mg tablet 2022-0 5-04 00:00: 00 01-25 04:59 :00 No [id number] 40mg Take 2 tablets by mouth in the morning for 4 days. [facility] predniSONE 20 mg tablet 2022-0 5-04 00:00: 00 01-25 04:59 :00 No [id number] 40mg Take 2 tablets by mouth in the morning for 4 days. [facility] predniSONE 20 mg tablet 2022-0 5-04 00:00: 00 01-25 04:59 :00 No [id number] 40mg Take 2 tablets by mouth in the morning for 4 days. [facility] predniSONE 20 mg tablet 2022-0 -04 00:00: 00 01-25 04:59 :00 No [id number] 40mg Take 2 tablets by mouth in the morning for 4 days. [facility] enoxaparin (LOVENOX) injection 40 mg 01-19 22:00: 00 Yes 40mg 40 mg, Subcutaneo us, DAILY, First dose on Tue01/19/23 at 1700, Until Discontinu ed, [facility] levalbut[facility] (XOPENEX) nebulizer solution 1.25 mg 01-19 21:00: 00 Yes 1.25mg 1.25 mg, Inhalation , QID, First dose (after last modificati on) on Tue01/19/23 at 1600, Until Discontinu ed, Routine [facility] ipratropium (ATROVENT) 0.02 % nebulizer solution 0.5 mg 01-19 21:00: 00 Yes .5mg 0.5 mg, Inhalation , QID, First dose (after last modificati on) on Tue01/19/23 at 1600, Until Discontinu ed, Routine [facility] bus[facility]IRone 10 mg tablet 0 01-19 19:49: 16 Yes 10mg Take 1 tablet by mouth in the morning and 1 tablet in the evening. [facility] rivaroxaban 15 mg tablet 2022-0 01-19 19:49: 16 Yes 15mg Take 1 tablet by mouth in the morning. [facility] ASPIRIN ORAL 2022-0 01-19 19:49: 16 Yes 81mg Take 81 mg by mouth in the morning. tablet [facility] busPIRone 10 mg tablet 2022-0 01-19 19:49: 16 Yes 10mg Take 1 tablet by mouth in the morning and 1 tablet in the evening. [facility] rivaroxaban 15 mg tablet 2022-0 01-19 19:49: 16 Yes 15mg Take 1 tablet by mouth in the morning. [facility] ASPIRIN ORAL 2022-0 01-19 19:49: 16 Yes 81mg Take 81 mg by mouth in the morning. tablet [facility] busPIRone 10 mg tablet 2022-0 01-19 19:49: 16 Yes 10mg Take 1 tablet by mouth in the morning and 1 tablet in the evening. [facility] rivaroxaban 15 mg tablet 2022-0 01-19 19:49: 16 Yes 15mg Take 1 tablet by mouth in the morning. [facility] ASPIRIN ORAL 2022-0 01-19 19:49: 16 Yes 81mg Take 81 mg by mouth in the morning. tablet [facility] busPIRone 10 mg tablet 2022-0 01-19 19:49: 16 Yes 10mg Take 1 tablet by mouth in the morning and 1 tablet in the evening. [facility] rivaroxaban 15 mg tablet 2022-0 01-19 19:49: 16 Yes 15mg Take 1 tablet by mouth in the morning. [facility] ASPIRIN ORAL 2022-0 01-19 19:49: 16 Yes 81mg Take 81 mg by mouth in the morning. tablet [facility] busPIRone 10 mg tablet 01-19 19:49: 16 Yes 10mg Take 1 tablet by mouth in the morning and 1 tablet in the evening. [facility] rivaroxaban 15 mg tablet 01-19 19:49: 16 Yes 15mg Take 1 tablet by mouth in the morning. [facility] ASPIRIN ORAL 01-19 19:49: 16 Yes 81mg Take 81 mg by mouth in the morning. tablet [facility] busPIRone 10 mg tablet 01-19 19:49: 16 Yes 10mg Take 1 tablet by mouth in the morning and 1 tablet in the evening. [facility] rivaroxaban 15 mg tablet 01-19 19:49: 16 Yes 15mg Take 1 tablet by mouth in the morning. [facility] ASPIRIN ORAL 01-19 19:49: 16 Yes 81mg Take 81 mg by mouth in the morning. tablet [facility] benazepriL 10 mg tablet 01-19 17:28: 05 01-19 00:00 :00 No 10mg Take 1 tablet by mouth in the morning. [facility] potassium chloride (KCL-20 ORAL) 01-19 17:28: 01-19 00:00 :00 No 1{tbl} Take 1 tablet by mouth in the morning and 1 tablet in the evening. [facility] aspirin chewable tablet 81 mg 01-19 14:00: 00 Yes 81mg 81 mg, Oral, DAILY, First dose on Tue01/19/23 at 0900, Until Discontinu ed [facility] predniSONE (DELTASONE) tablet 40 mg 01-19 14:00: 00 01-24 13:59 :00 No 40mg 40 mg, Oral, DAILY, 5 doses, First dose on Tue01/19/23 at 0900, Last dose on Tue01/23/23 at 0900, Routine [facility] busPIRone (BUSPAR) tablet 10 mg 01-19 13:00: 00 Yes 10mg 10 mg, Oral, BID, First dose on Tue01/19/23 at 0800, Until Discontinu ed, Routine [facility] ipratropium (ATROVENT) 0.02 % nebulizer solution 0.5 mg 01-19 13:00: 00 01-19 19:13 :37 No .5mg 0.5 mg, Inhalation , TID, First dose (after last modificati on) on Tue01/19/23 at 0800, Until Discontinu ed, Routine [facility] levalbutero l (XOPENEX) nebulizer solution 1.25 mg 01-19 13:00: 00 01-19 19:13 :37 No 1.25mg 1.25 mg, Inhalation , TID, First dose on Tue01/19/23 at 0800, Until Discontinu ed, Routine [facility] sodium polystyrene sulfonate (KAYEXALATE ) 15 gram/60 mL suspension 15 g 01-19 13:00: 00 01-19 13:22 :00 No 15g 15 g, Oral, ONCE, 1 dose, On Tue01/19/23 at 0800, Routine [facility] ipratropium (ATROVENT) 0.02 % nebulizer solution 0.5 mg 01-19 09:00: 00 01-19 12:09 :19 No .5mg 0.5 mg, Inhalation , Q4H, First dose on Tue01/19/23 at 0400, Until Discontinu ed, Routine [facility] levoFLOXaci n (LEVAQUIN) tablet 500 mg 01-19 08:15: 00 01-24 08:14 :00 No 500mg 500 mg, Oral, Q24H ABX, 5 doses, First dose on Tue01/19/23 at 0315, Last dose on Tue01/23/23 at 031, MICHAEL
Re ason for Anti-Infec tive: Empiric Therapy for Suspected Infection< br>Empiric Therapy Site: Respirator y
Durat ion of therapy: 5 days [facility] guaiFENesin 100 mg/5 mL solution 200 mg 01-19 08:04: 52 Yes 200mg 200 mg, Oral, Q6HPRN, Starting on Tue01/19/23 at 0304, Until Discontinu ed, Routine, Cough [facility] ondansetron (ZOFRAN (PF)) injection 4 mg 01-19 08:03: 53 Yes 4mg 4 mg, Slow IV Push, Q6HPRN, Starting on Tue01/19/23 at 0303, Until Discontinu ed, Routine, Nausea and Vomiting (N/V) [facility] morpHINE (2 mg/mL) injection 2 mg 01-19 08:03: 43 01-20 08:02 :43 No 2mg 2 mg, Slow IV Push, Q4HPRN, Starting on Tue01/19/23 at 0303, Until Elizabeth 01/20/23 at 0302, Routine, Pain (scale 7-10) [facility] HYDROcodone -acetaminop hen (NORCO 5) 5-325 mg tablet 1 tablet 01-19 08:03: 39 01-21 08:02 :39 No 1{tbl} 1 tablet, Oral, Q6HPRN, Starting on Tue01/19/23 at 0303, Until Tue01/21/23 at 0302, Routine, Pain (scale 4-6) [facility] acetaminoph en (TYLENOL) tablet 650 mg 01-19 08:03: 35 Yes 650mg 650 mg, Oral, Q6HPRN, Starting on Tue01/19/23 at 0303, Until Discontinu ed, Routine, Pain (scale 1-3) [facility] levalbutero l (XOPENEX) nebulizer solution 1.25 mg 01-19 07:30: 00 01-19 07:08 :00 No 1.25mg 1.25 mg, Inhalation , ONCE, 1 dose, On Tue01/19/23 at 0230, Routine [facility] dexamethaso ne sod phos PF injection 10 mg 01-19 06:58: 00 01-19 07:06 :00 No 10mg 10 mg, Oral, ONCE, 1 dose, On Tue01/19/23 at 0200, 1 mL [facility] ipratropium (ATROVENT) 0.02 % nebulizer solution 0.5 mg 01-19 06:45: 00 01-19 07:09 :00 No .5mg 0.5 mg, Inhalation , ONCE, 1 dose, On Tue01/19/23 at 0145, MICHAEL [facility] ipratropium 0.02 % nebulizer solution 01-19 00:00: 00 Yes [id number] .5mg Inhale 2.5 mL every 6 (six) hours as needed for Wheezing, Shortness of Breath, Bronchospa sm or Chest tightness. [facility] guaiFENesin 100 mg/5 mL solution 01-19 00:00: 00 Yes [id number] 200mg Take 10 mL by mouth every 6 (six) hours as needed for Cough. [facility] ipratropium 0.02 % nebulizer solution 01-19 00:00: 00 Yes [id number] .5mg Inhale 2.5 mL every 6 (six) hours as needed for Wheezing, Shortness of Breath, Bronchospa sm or Chest tightness. [facility] guaiFENesin 100 mg/5 mL solution 01-19 00:00: 00 Yes [id number] 200mg Take 10 mL by mouth every 6 (six) hours as needed for Cough. [facility] ipratropium 0.02 % nebulizer solution 01-19 00:00: 00 Yes [id number] .5mg Inhale 2.5 mL every 6 (six) hours as needed for Wheezing, Shortness of Breath, Bronchospa sm or Chest tightness. [facility] guaiFENesin 100 mg/5 mL solution 01-19 00:00: 00 Yes [id number] 200mg Take 10 mL by mouth every 6 (six) hours as needed for Cough. [facility] ipratropium 0.02 % nebulizer solution 01-19 00:00: 00 Yes [id number] .5mg Inhale 2.5 mL every 6 (six) hours as needed for Wheezing, Shortness of Breath, Bronchospa sm or Chest tightness. [facility] guaiFENesin 100 mg/5 mL solution 01-19 00:00: 00 Yes [id number] 200mg Take 10 mL by mouth every 6 (six) hours as needed for Cough. [facility] ipratropium 0.02 % nebulizer solution 01-19 00:00: 00 Yes [id number] .5mg Inhale 2.5 mL every 6 (six) hours as needed for Wheezing, Shortness of Breath, Bronchospa sm or Chest tightness. [facility] guaiFENesin 100 mg/5 mL solution 01-19 00:00: 00 Yes [id number] 200mg Take 10 mL by mouth every 6 (six) hours as needed for Cough. [facility] ipratropium 0.02 % nebulizer solution 01-19 00:00: 00 Yes [id number] .5mg Inhale 2.5 mL every 6 (six) hours as needed for Wheezing, Shortness of Breath, Bronchospa sm or Chest tightness. [facility] guaiFENesin 100 mg/5 mL solution 01-19 00:00: 00 Yes [id number] 200mg Take 10 mL by mouth every 6 (six) hours as needed for Cough. [facility] ipratropium 0.02 % nebulizer solution 01-19 00:00: 00 Yes [id number] .5mg Inhale 2.5 mL every 6 (six) hours as needed for Wheezing, Shortness of Breath, Bronchospa sm or Chest tightness. [facility] guaiFENesin 100 mg/5 mL solution 01-19 00:00: 00 Yes [id number] 200mg Take 10 mL by mouth every 6 (six) hours as needed for Cough. [facility] ipratropium 0.02 % nebulizer solution 01-19 00:00: 00 Yes [id number] .5mg Inhale 2.5 mL every 6 (six) hours as needed for Wheezing, Shortness of Breath, Bronchospa sm or Chest tightness. [facility] guaiFENesin 100 mg/5 mL solution 01-19 00:00: 00 Yes [id number] 200mg Take 10 mL by mouth every 6 (six) hours as needed for Cough. [facility] ipratropium 0.02 % nebulizer solution 01-19 00:00: 00 Yes [id number] .5mg Inhale 2.5 mL every 6 (six) hours as needed for Wheezing, Shortness of Breath, Bronchospa sm or Chest tightness. [facility] guaiFENesin 100 mg/5 mL solution 01-19 00:00: 00 Yes [id number] 200mg Take 10 mL by mouth every 6 (six) hours as needed for Cough. [facility] ipratropium 0.02 % nebulizer solution 01-19 00:00: 00 Yes [id number] .5mg Inhale 2.5 mL every 6 (six) hours as needed for Wheezing, Shortness of Breath, Bronchospa sm or Chest tightness. [facility] guaiFENesin 100 mg/5 mL solution 01-19 00:00: 00 Yes [id number] 200mg Take 10 mL by mouth every 6 (six) hours as needed for Cough. [facility] ipratropium 0.02 % nebulizer solution 01-19 00:00: 00 Yes [id number] .5mg Inhale 2.5 mL every 6 (six) hours as needed for Wheezing, Shortness of Breath, Bronchospa sm or Chest tightness. [facility] guaiFENesin 100 mg/5 mL solution 01-19 00:00: 00 Yes [id number] 200mg Take 10 mL by mouth every 6 (six) hours as needed for Cough. [facility] ipratropium 0.02 % nebulizer solution 01-19 00:00: 00 Yes [id number] .5mg Inhale 2.5 mL every 6 (six) hours as needed for Wheezing, Shortness of Breath, Bronchospa sm or Chest tightness. [facility] guaiFENesin 100 mg/5 mL solution 01-19 00:00: 00 Yes [id number] 200mg Take 10 mL by mouth every 6 (six) hours as needed for Cough. [facility] ipratropium 0.02 % nebulizer solution 01-19 00:00: 00 Yes [id number] .5mg Inhale 2.5 mL every 6 (six) hours as needed for Wheezing, Shortness of Breath, Bronchospa sm or Chest tightness. [facility] guaiFENesin 100 mg/5 mL solution 01-19 00:00: 00 Yes [id number] 200mg Take 10 mL by mouth every 6 (six) hours as needed for Cough. [facility] ipratropium 0.02 % nebulizer solution 01-19 00:00: 00 Yes [id number] .5mg Inhale 2.5 mL every 6 (six) hours as needed for Wheezing, Shortness of Breath, Bronchospa sm or Chest tightness. [facility] guaiFENesin 100 mg/5 mL solution 01-19 00:00: 00 Yes [id number] 200mg Take 10 mL by mouth every 6 (six) hours as needed for Cough. [facility] ipratropium 0.02 % nebulizer solution 01-19 00:00: 00 Yes [id number] .5mg Inhale 2.5 mL every 6 (six) hours as needed for Wheezing, Shortness of Breath, Bronchospa sm or Chest tightness. [facility] guaiFENesin 100 mg/5 mL solution 01-19 00:00: 00 Yes [id number] 200mg Take 10 mL by mouth every 6 (six) hours as needed for Cough. [facility] ipratropium 0.02 % nebulizer solution 01-19 00:00: 00 Yes [id number] .5mg Inhale 2.5 mL every 6 (six) hours as needed for Wheezing, Shortness of Breath, Bronchospa sm or Chest tightness. [facility] guaiFENesin 100 mg/5 mL solution 01-19 00:00: 00 Yes [id number] 200mg Take 10 mL by mouth every 6 (six) hours as needed for Cough. [facility] ipratropium 0.02 % nebulizer solution 01-19 00:00: 00 Yes [id number] .5mg Inhale 2.5 mL every 6 (six) hours as needed for Wheezing, Shortness of Breath, Bronchospa sm or Chest tightness. [facility] guaiFENesin 100 mg/5 mL solution 01-19 00:00: 00 Yes [id number] 200mg Take 10 mL by mouth every 6 (six) hours as needed for Cough. [facility] ipratropium 0.02 % nebulizer solution 01-19 00:00: 00 Yes [id number] .5mg Inhale 2.5 mL every 6 (six) hours as needed for Wheezing, Shortness of Breath, Bronchospa sm or Chest tightness. [facility] guaiFENesin 100 mg/5 mL solution 01-19 00:00: 00 Yes [id number] 200mg Take 10 mL by mouth every 6 (six) hours as needed for Cough. [facility] ipratropium 0.02 % nebulizer solution 01-19 00:00: 00 Yes [id number] .5mg Inhale 2.5 mL every 6 (six) hours as needed for Wheezing, Shortness of Breath, Bronchospa sm or Chest tightness. [facility] guaiFENesin 100 mg/5 mL solution 01-19 00:00: 00 Yes [id number] 200mg Take 10 mL by mouth every 6 (six) hours as needed for Cough. [facility] guaiFENesin 100 mg/5 mL solution 01-19 00:00: 00 Yes [id number] 200mg Take 10 mL by mouth every 6 (six) hours as needed for Cough. [facility] guaiFENesin 100 mg/5 mL solution 01-19 00:00: 00 Yes [id number] 200mg Take 10 mL by mouth every 6 (six) hours as needed for Cough. [facility] guaiF[facility]esin 100 mg/5 mL solution 3-0 5-03 00:00: 00 Yes [id number] 200mg Take 10 mL by mouth every 6 (six) hours as needed for Cough. [facility] guaiFENesin 100 mg/5 mL solution 3-0 5-03 00:00: 00 Yes [id number] 200mg Take 10 mL by mouth every 6 (six) hours as needed for Cough. [facility] guaiFENesin 100 mg/5 mL solution 3-0 5- 00:00: 00 Yes [id number] 200mg Take 10 mL by mouth every 6 (six) hours as needed for Cough. [facility] guaiFENesin 100 mg/5 mL solution 3-0 5- 00:00: 00 Yes [id number] 200mg Take 10 mL by mouth every 6 (six) hours as needed for Cough. [facility] guaiFENesin 100 mg/5 mL solution 3-0 5- 00:00: 00 Yes [id number] 200mg Take 10 mL by mouth every 6 (six) hours as needed for Cough. [facility] guaiFENesin 100 mg/5 mL solution 2022-0 5-03 00:00: 00 Yes [id number] 200mg Take 10 mL by mouth every 6 (six) hours as needed for Cough. [facility] guaiFENesin 100 mg/5 mL solution 3-0 5-03 00:00: 00 Yes [id number] 200mg Take 10 mL by mouth every 6 (six) hours as needed for Cough. [facility] guaiFENesin 100 mg/5 mL solution 3-0 5-03 00:00: 00 Yes [id number] 200mg Take 10 mL by mouth every 6 (six) hours as needed for Cough. [facility] guaiFENesin 100 mg/5 mL solution 3-0 5-03 00:00: 00 Yes [id number] 200mg Take 10 mL by mouth every 6 (six) hours as needed for Cough. [facility] guaiFENesin 100 mg/5 mL solution 01-19 00:00: 00 Yes [id number] 200mg Take 10 mL by mouth every 6 (six) hours as needed for Cough. [facility] guaiFENesin 100 mg/5 mL solution 01-19 00:00: 00 Yes [id number] 200mg Take 10 mL by mouth every 6 (six) hours as needed for Cough. [facility] ipratropium 0.02 % nebulizer solution 01-19 00:00: 00 02-17 00:00 :00 No [id number] .5mg Inhale 2.5 mL every 6 (six) hours as needed for Wheezing, Shortness of Breath, Bronchospa sm or Chest tightness. [facility] levoFLOXaci n 500 mg tablet 01-19 00:00: 00 01-24 04:59 :00 No [id number] 500mg Take 1 tablet by mouth in the morning for 4 days. [facility] levoFLOXaci n 500 mg tablet 01-19 00:00: 00 01-24 04:59 :00 No [id number] 500mg Take 1 tablet by mouth in the morning for 4 days. [facility] levoFLOXaci n 500 mg tablet 01-19 00:00: 00 01-24 04:59 :00 No [id number] 500mg Take 1 tablet by mouth in the morning for 4 days. [facility] levoFLOXaci n 500 mg tablet 01-19 00:00: 00 01-24 04:59 :00 No [id number] 500mg Take 1 tablet by mouth in the morning for 4 days. [facility] levoFLOXaci n 500 mg tablet 01-19 00:00: 00 01-24 04:59 :00 No [id number] 500mg Take 1 tablet by mouth in the morning for 4 days. [facility] levoFLOXaci n 500 mg tablet 01-19 00:00: 00 01-24 04:59 :00 No [id number] 500mg Take 1 tablet by mouth in the morning for 4 days. [facility] levalbutero l (XOPENEX) nebulizer solution 1.25 mg 01-17 13:00: 00 01-17 11:56 :39 No 1.25mg 1.25 mg, Inhalation , TID, First dose on Tue01/17/23 at 0800, Until Discontinu ed, Routine [facility] methylpredn isolone sod succ (SOLU-MEDRO L) injection 125 mg 01-17 12:00: 00 01-17 11:11 :00 No 125mg 125 mg, Intravenou s, ONCE, 1 dose, On Tue01/17/23 at 0700, 2 mL [facility] ipratropium (ATROVENT) 0.02 % nebulizer solution 0.5 mg 01-17 11:45: 00 01-17 11:42 :00 No .5mg 0.5 mg, Inhalation , ONCE, 1 dose, On Tue01/17/23 at 0645, MICHAEL [facility] albuterol 90 mcg/actuati on inhaler 01-17 00:00: 00 Yes [id number] 2{puff} Inhale 2 Puffs every 4 (four) hours as needed for Wheezing or Shortness of Breath. [facility] albuterol 2.5 mg /3 mL (0.083 %) nebulizer solution 01-17 00:00: 00 Yes [id number] 2.5mg Inhale 3 mL every 4 (four) hours. May also nebulize one extra every 6 hours. [facility] predniSONE 50 mg tablet 01-17 00:00: 00 Yes [id number] 50mg Take 1 tablet by mouth in the morning. [facility] benzonatate 200 mg capsule 01-17 00:00: 00 Yes [id number] 200mg Take 1 capsule by mouth 3 (three) times daily as needed for Cough. [facility] ipratropium 0.02 % nebulizer solution 01-17 00:00: 00 Yes [id number] .5mg Inhale 2.5 mL every 6 (six) hours as needed for Wheezing, Shortness of Breath, Bronchospa sm or Chest tightness. [facility] albuterol 90 mcg/actuati on inhaler 01-17 00:00: 00 Yes [id number] 2{puff} Inhale 2 Puffs every 4 (four) hours as needed for Wheezing or Shortness of Breath. [facility] albuterol 2.5 mg /3 mL (0.083 %) nebulizer solution 01-17 00:00: 00 Yes [id number] 2.5mg Inhale 3 mL every 4 (four) hours. May also nebulize one extra every 6 hours. [facility] benzonatate 200 mg capsule 01-17 00:00: 00 Yes [id number] 200mg Take 1 capsule by mouth 3 (three) times daily as needed for Cough. [facility] albuterol 90 mcg/actuati on inhaler 01-17 00:00: 00 Yes [id number] 2{puff} Inhale 2 Puffs every 4 (four) hours as needed for Wheezing or Shortness of Breath. [facility] albuterol 2.5 mg /3 mL (0.083 %) nebulizer solution 01-17 00:00: 00 Yes [id number] 2.5mg Inhale 3 mL every 4 (four) hours. May also nebulize one extra every 6 hours. [facility] benzonatate 200 mg capsule 01-17 00:00: 00 Yes [id number] 200mg Take 1 capsule by mouth 3 (three) times daily as needed for Cough. [facility]/actuati on inhaler 01-17 00:00: 00 Yes [id number] 2{puff} Inhale 2 Puffs every 4 (four) hours as needed for Wheezing or Shortness of Breath. [facility] albuterol 2.5 mg /3 mL (0.083 %) nebulizer solution 01-17 00:00: 00 Yes [id number] 2.5mg Inhale 3 mL every 4 (four) hours. May also nebulize one extra every 6 hours. [facility] benzonatate 200 mg capsule 01-17 00:00: 00 Yes [id number] 200mg Take 1 capsule by mouth 3 (three) times daily as needed for Cough. [facility] albuterol 90 mcg/actuati on inhaler 01-17 00:00: 00 Yes [id number] 2{puff} Inhale 2 Puffs every 4 (four) hours as needed for Wheezing or Shortness of Breath. [facility] albuterol 2.5 mg /3 mL (0.083 %) nebulizer solution 01-17 00:00: 00 Yes [id number] 2.5mg Inhale 3 mL every 4 (four) hours. May also nebulize one extra every 6 hours. [facility] benzonatate 200 mg capsule 01-17 00:00: 00 Yes [id number] 200mg Take 1 capsule by mouth 3 (three) times daily as needed for Cough. [facility] albuterol 90 mcg/actuati on inhaler 01-17 00:00: 00 Yes [id number] 2{puff} Inhale 2 Puffs every 4 (four) hours as needed for Wheezing or Shortness of Breath. [facility] albuterol 2.5 mg /3 mL (0.083 %) nebulizer solution 01-17 00:00: 00 Yes [id number] 2.5mg Inhale 3 mL every 4 (four) hours. May also nebulize one extra every 6 hours. [facility] benzonatate 200 mg capsule 01-17 00:00: 00 Yes [id number] 200mg Take 1 capsule by mouth 3 (three) times daily as needed for Cough. [facility] albuterol 90 mcg/actuati on inhaler 01-17 00:00: 00 Yes [id number] 2{puff} Inhale 2 Puffs every 4 (four) hours as needed for Wheezing or Shortness of Breath. [facility] albuterol 2.5 mg /3 mL (0.083 %) nebulizer solution 01-17 00:00: 00 Yes [id number] 2.5mg Inhale 3 mL every 4 (four) hours. May also nebulize one extra every 6 hours. [facility] benzon[facility]ate 200 mg capsule 01-17 00:00: 00 Yes [id number] 200mg Take 1 capsule by mouth 3 (three) times daily as needed for Cough. [facility] al[facility]erol 90 mcg/actuati on inhaler 01-17 00:00: 00 Yes [id number] 2{puff} Inhale 2 Puffs every 4 (four) hours as needed for Wheezing or Shortness of Breath. [facility] albuterol 2.5 mg /3 mL (0.083 %) nebulizer solution 01-17 00:00: 00 Yes [id number] 2.5mg Inhale 3 mL every 4 (four) hours. May also nebulize one extra every 6 hours. [facility] benzonatate 200 mg capsule 01-17 00:00: 00 Yes [id number] 200mg Take 1 capsule by mouth 3 (three) times daily as needed for Cough. [facility] albuterol 90 mcg/actuati on inhaler 01-17 00:00: 00 Yes [id number] 2{puff} Inhale 2 Puffs every 4 (four) hours as needed for Wheezing or Shortness of Breath. [facility] albuterol 2.5 mg /3 mL (0.083 %) nebulizer solution 01-17 00:00: 00 Yes [id number] 2.5mg Inhale 3 mL every 4 (four) hours. May also nebulize one extra every 6 hours. [facility] benzonatate 200 mg capsule 01-17 00:00: 00 Yes [id number] 200mg Take 1 capsule by mouth 3 (three) times daily as needed for Cough. [facility] al[facility]erol 90 mcg/actuati on inhaler 01-17 00:00: 00 Yes [id number] 2{puff} Inhale 2 Puffs every 4 (four) hours as needed for Wheezing or Shortness of Breath. [facility] 2.5 mg /3 mL (0.083 %) nebulizer solution 01-17 00:00: 00 Yes [id number] 2.5mg Inhale 3 mL every 4 (four) hours. May also nebulize one extra every 6 hours. [facility] benzonatate 200 mg capsule 01-17 00:00: 00 Yes [id number] 200mg Take 1 capsule by mouth 3 (three) times daily as needed for Cough. [facility] al[facility]erol 90 mcg/actuati on inhaler 01-17 00:00: 00 Yes [id number] 2{puff} Inhale 2 Puffs every 4 (four) hours as needed for Wheezing or Shortness of Breath. [facility] al[facility]erol 2.5 mg /3 mL (0.083 %) nebulizer solution 01-17 00:00: 00 Yes [id number] 2.5mg Inhale 3 mL every 4 (four) hours. May also nebulize one extra every 6 hours. [facility] benzonatate 200 mg capsule 01-17 00:00: 00 Yes [id number] 200mg Take 1 capsule by mouth 3 (three) times daily as needed for Cough. [facility] al[facility]erol 90 mcg/actuati on inhaler 01-17 00:00: 00 Yes [id number] 2{puff} Inhale 2 Puffs every 4 (four) hours as needed for Wheezing or Shortness of Breath. [facility] albuterol 2.5 mg /3 mL (0.083 %) nebulizer solution 01-17 00:00: 00 Yes [id number] 2.5mg Inhale 3 mL every 4 (four) hours. May also nebulize one extra every 6 hours. [facility] benzonatate 200 mg capsule 01-17 00:00: 00 Yes [id number] 200mg Take 1 capsule by mouth 3 (three) times daily as needed for Cough. [facility] albuterol 90 mcg/actuati on inhaler 01-17 00:00: 00 Yes [id number] 2{puff} Inhale 2 Puffs every 4 (four) hours as needed for Wheezing or Shortness of Breath. [facility] al[facility]erol 2.5 mg /3 mL (0.083 %) nebulizer solution 01-17 00:00: 00 Yes [id number] 2.5mg Inhale 3 mL every 4 (four) hours. May also nebulize one extra every 6 hours. [facility] benzonatate 200 mg capsule 01-17 00:00: 00 Yes [id number] 200mg Take 1 capsule by mouth 3 (three) times daily as needed for Cough. [facility] albuterol 90 mcg/actuati on inhaler 01-17 00:00: 00 Yes [id number] 2{puff} Inhale 2 Puffs every 4 (four) hours as needed for Wheezing or Shortness of Breath. [facility] albuterol 2.5 mg /3 mL (0.083 %) nebulizer solution 01-17 00:00: 00 Yes [id number] 2.5mg Inhale 3 mL every 4 (four) hours. May also nebulize one extra every 6 hours. [facility] benzonatate 200 mg capsule 01-17 00:00: 00 Yes [id number] 200mg Take 1 capsule by mouth 3 (three) times daily as needed for Cough. [facility] albuterol 90 mcg/actuati on inhaler 01-17 00:00: 00 Yes [id number] 2{puff} Inhale 2 Puffs every 4 (four) hours as needed for Wheezing or Shortness of Breath. [facility] albuterol 2.5 mg /3 mL (0.083 %) nebulizer solution 01-17 00:00: 00 Yes [id number] 2.5mg Inhale 3 mL every 4 (four) hours. May also nebulize one extra every 6 hours. [facility] benzonatate 200 mg capsule 01-17 00:00: 00 Yes [id number] 200mg Take 1 capsule by mouth 3 (three) times daily as needed for Cough. [facility] albuterol 90 mcg/actuati on inhaler 01-17 00:00: 00 Yes [id number] 2{puff} Inhale 2 Puffs every 4 (four) hours as needed for Wheezing or Shortness of Breath. [facility] al[facility]erol 2.5 mg /3 mL (0.083 %) nebulizer solution 01-17 00:00: 00 Yes [id number] 2.5mg Inhale 3 mL every 4 (four) hours. May also nebulize one extra every 6 hours. [facility] benzonatate 200 mg capsule 01-17 00:00: 00 Yes [id number] 200mg Take 1 capsule by mouth 3 (three) times daily as needed for Cough. [facility] albuterol 90 mcg/actuati on inhaler 01-17 00:00: 00 Yes [id number] 2{puff} Inhale 2 Puffs every 4 (four) hours as needed for Wheezing or Shortness of Breath. [facility] albuterol 2.5 mg /3 mL (0.083 %) nebulizer solution 01-17 00:00: 00 Yes [id number] 2.5mg Inhale 3 mL every 4 (four) hours. May also nebulize one extra every 6 hours. [facility] benzonatate 200 mg capsule 01-17 00:00: 00 Yes [id number] 200mg Take 1 capsule by mouth 3 (three) times daily as needed for Cough. [facility] albuterol 2.5 mg /3 mL (0.083 %) nebulizer solution 01-17 00:00: 00 Yes [id number] 2.5mg Inhale 3 mL every 4 (four) hours. May also nebulize one extra every 6 hours. [facility] benzonatate 200 mg capsule 01-17 00:00: 00 Yes [id number] 200mg Take 1 capsule by mouth 3 (three) times daily as needed for Cough. [facility] albuterol 2.5 mg /3 mL (0.083 %) nebulizer solution 01-17 00:00: 00 Yes [id number] 2.5mg Inhale 3 mL every 4 (four) hours. May also nebulize one extra every 6 hours. [facility] benzonatate 200 mg capsule 01-17 00:00: 00 Yes [id number] 200mg Take 1 capsule by mouth 3 (three) times daily as needed for Cough. [facility] albuterol 2.5 mg /3 mL (0.083 %) nebulizer solution 01-17 00:00: 00 Yes [id number] 2.5mg Inhale 3 mL every 4 (four) hours. May also nebulize one extra every 6 hours. [facility] benzonatate 200 mg capsule 01-17 00:00: 00 Yes [id number] 200mg Take 1 capsule by mouth 3 (three) times daily as needed for Cough. [facility] albuterol 2.5 mg /3 mL (0.083 %) nebulizer solution 01-17 00:00: 00 Yes [id number] 2.5mg Inhale 3 mL every 4 (four) hours. May also nebulize one extra every 6 hours. [facility] albuterol 2.5 mg /3 mL (0.083 %) nebulizer solution 01-17 00:00: 00 Yes [id number] 2.5mg Inhale 3 mL every 4 (four) hours. May also nebulize one extra every 6 hours. [facility] albuterol 2.5 mg /3 mL (0.083 %) nebulizer solution 01-17 00:00: 00 Yes [id number] 2.5mg Inhale 3 mL every 4 (four) hours. May also nebulize one extra every 6 hours. [facility] albuterol 2.5 mg /3 mL (0.083 %) nebulizer solution 01-17 00:00: 00 Yes [id number] 2.5mg Inhale 3 mL every 4 (four) hours. May also nebulize one extra every 6 hours. [facility] albuterol 2.5 mg /3 mL (0.083 %) nebulizer solution 01-17 00:00: 00 Yes [id number] 2.5mg Inhale 3 mL every 4 (four) hours. May also nebulize one extra every 6 hours. [facility] albuterol 2.5 mg /3 mL (0.083 %) nebulizer solution 01-17 00:00: 00 Yes [id number] 2.5mg Inhale 3 mL every 4 (four) hours. May also nebulize one extra every 6 hours. [facility] albuterol 2.5 mg /3 mL (0.083 %) nebulizer solution 01-17 00:00: 00 03-03 00:00 :00 No [id number] 2.5mg Inhale 3 mL every 4 (four) hours. May also nebulize one extra every 6 hours. [facility] benzonatate 200 mg capsule 01-17 00:00: 02-17 00:00 :00 No [id number] 200mg Take 1 capsule by mouth 3 (three) times daily as needed for Cough. [facility] albuterol 90 mcg/actuati on inhaler 01-17 00:00: 00 02-04 00:00 :00 No [id number] 2{puff} Inhale 2 Puffs every 4 (four) hours as needed for Wheezing or Shortness of Breath. [facility] predniSONE 50 mg tablet 01-17 00:00: 00 01-19 00:00 :00 No [id number] 50mg Take 1 tablet by mouth in the morning. [facility] ipratropium 0.02 % nebulizer solution 01-17 00:00: 00 01-19 00:00 :00 No [id number] .5mg Inhale 2.5 mL every 6 (six) hours as needed for Wheezing, Shortness of Breath, Bronchospa sm or Chest tightness. [facility] potassium chloride (KCL-20 ORAL) 01-07 14:37: 58 Yes 1{tbl} Take 1 tablet by mouth in the morning and 1 tablet in the evening. [facility] potassium chloride (KCL-20 ORAL) 01-07 14:37: 58 Yes 1{tbl} Take 1 tablet by mouth in the morning and 1 tablet in the evening. [facility] potassium chloride (KCL-20 ORAL) 01-07 14:37: 58 Yes 1{tbl} Take 1 tablet by mouth in the morning and 1 tablet in the evening. [facility] potassium chloride (KCL-20 ORAL) 01-07 14:37: 58 Yes 1{tbl} Take 1 tablet by mouth in the morning and 1 tablet in the evening. [facility] busPIRone 10 mg tablet 01-07 14:36: 57 Yes 10mg Take 1 tablet by mouth in the morning and 1 tablet in the evening. [facility] rivaroxaban 15 mg tablet 01-07 14:36: 57 Yes 15mg Take 1 tablet by mouth in the morning. [facility] ASPIRIN ORAL 0 01-07 14:36: 57 Yes 81mg Take 81 mg by mouth in the morning. tablet [facility] benazepriL 10 mg tablet 01-07 14:36: 57 Yes 10mg Take 1 tablet by mouth in the morning. [facility] busPIRone 10 mg tablet 01-07 14:36: 57 Yes 10mg Take 1 tablet by mouth in the morning and 1 tablet in the evening. [facility] rivaroxaban 15 mg tablet 01-07 14:36: 57 Yes 15mg Take 1 tablet by mouth in the morning. [facility] ASPIRIN ORAL 0 01-07 14:36: 57 Yes 81mg Take 81 mg by mouth in the morning. tablet [facility] benazepriL 10 mg tablet 0 01-07 14:36: 57 Yes 10mg Take 1 tablet by mouth in the morning. [facility] busPIRone 10 mg tablet 0 01-07 14:36: 57 Yes 10mg Take 1 tablet by mouth in the morning and 1 tablet in the evening. [facility] rivaroxaban 15 mg tablet 2022-0 01-07 14:36: 57 Yes 15mg Take 1 tablet by mouth in the morning. [facility] ASPIRIN ORAL 3-0 01-07 14:36: 57 Yes 81mg Take 81 mg by mouth in the morning. tablet [facility] benazepriL 10 mg tablet 2022-0 01-07 14:36: 57 Yes 10mg Take 1 tablet by mouth in the morning. [facility] busPIRone 10 mg tablet 2022-0 01-07 14:36: 57 Yes 10mg Take 1 tablet by mouth in the morning and 1 tablet in the evening. [facility] rivaroxaban 15 mg tablet 2022-0 01-07 14:36: 57 Yes 15mg Take 1 tablet by mouth in the morning. [facility] ASPIRIN ORAL 3-0 01-07 14:36: 57 Yes 81mg Take 81 mg by mouth in the morning. tablet [facility] benazepriL 10 mg tablet 2022-0 01-07 14:36: 57 Yes 10mg Take 1 tablet by mouth in the morning. [facility] donepeziL 5 mg tablet 2022-0 01-07 00:00: 00 Yes 5mg Take 1 tablet by mouth in the morning. [facility] memantine 5 mg tablet 3-0 01-07 00:00: 00 Yes 5mg Take 1 tablet by mouth in the morning. [facility] donepeziL 5 mg tablet 3-0 21 00:00: 00 Yes 5mg Take 1 tablet by mouth in the morning. [facility] memantine 5 mg tablet 3-0 21 00:00: 00 Yes 5mg Take 1 tablet by mouth in the morning. [facility] donepeziL 5 mg tablet 2023-0 21 00:00: 00 Yes 5mg Take 1 tablet by mouth in the morning. [facility] memantine 5 mg tablet 3-0 21 00:00: 00 Yes 5mg Take 1 tablet by mouth in the morning. [facility] donepeziL 5 mg tablet 2023-0 4-21 00:00: 00 Yes 5mg Take 1 tablet by mouth in the morning. [facility] memantine 5 mg tablet 3-0 4-21 00:00: 00 Yes 5mg Take 1 tablet by mouth in the morning. [facility] donepeziL 5 mg tablet 3-0 4-21 00:00: 00 Yes 5mg Take 1 tablet by mouth in the morning. [facility] memantine 5 mg tablet 2023-0 4-21 00:00: 00 Yes 5mg Take 1 tablet by mouth in the morning. [facility] donepeziL 5 mg tablet 3-0 4-21 00:00: 00 Yes 5mg Take 1 tablet by mouth in the morning. [facility] memantine 5 mg tablet 3-0 4-21 00:00: 00 Yes 5mg Take 1 tablet by mouth in the morning. [facility] donepeziL 5 mg tablet 3-0 4-21 00:00: 00 Yes 5mg Take 1 tablet by mouth in the morning. [facility] memantine 5 mg tablet 3-0 4-21 00:00: 00 Yes 5mg Take 1 tablet by mouth in the morning. [facility] donepeziL 5 mg tablet 3-0 4-21 00:00: 00 Yes 5mg Take 1 tablet by mouth in the morning. [facility] memantine 5 mg tablet 2023-0 4-21 00:00: 00 Yes 5mg Take 1 tablet by mouth in the morning. [facility] donepeziL 5 mg tablet 2023-0 4-21 00:00: 00 Yes 5mg Take 1 tablet by mouth in the morning. [facility] memantine 5 mg tablet 2023-0 4-21 00:00: 00 Yes 5mg Take 1 tablet by mouth in the morning. [facility] donepeziL 5 mg tablet 2023-0 4-21 00:00: 00 Yes 5mg Take 1 tablet by mouth in the morning. [facility] memantine 5 mg tablet 2023-0 4-21 00:00: 00 Yes 5mg Take 1 tablet by mouth in the morning. [facility] donepeziL 5 mg tablet 2023-0 4-21 00:00: 00 Yes 5mg Take 1 tablet by mouth in the morning. [facility] memantine 5 mg tablet 2023-0 4-21 00:00: 00 Yes 5mg Take 1 tablet by mouth in the morning. [facility] donepeziL 5 mg tablet 2023-0 4-21 00:00: 00 Yes 5mg Take 1 tablet by mouth in the morning. [facility] memantine 5 mg tablet 2023-0 4-21 00:00: 00 Yes 5mg Take 1 tablet by mouth in the morning. [facility] donepeziL 5 mg tablet 2023-0 4-21 00:00: 00 Yes 5mg Take 1 tablet by mouth in the morning. [facility] memantine 5 mg tablet 2023-0 4-21 00:00: 00 Yes 5mg Take 1 tablet by mouth in the morning. [facility] donepeziL 5 mg tablet 3-0 4-21 00:00: 00 Yes 5mg Take 1 tablet by mouth in the morning. [facility] memantine 5 mg tablet 3-0 4-21 00:00: 00 Yes 5mg Take 1 tablet by mouth in the morning. [facility] donepeziL 5 mg tablet 2023-0 4-21 00:00: 00 Yes 5mg Take 1 tablet by mouth in the morning. [facility] memantine 5 mg tablet 2023-0 4-21 00:00: 00 Yes 5mg Take 1 tablet by mouth in the morning. [facility] donepeziL 5 mg tablet 2023-0 4-21 00:00: 00 Yes 5mg Take 1 tablet by mouth in the morning. [facility] memantine 5 mg tablet 2023-0 4-21 00:00: 00 Yes 5mg Take 1 tablet by mouth in the morning. [facility] donepeziL 5 mg tablet 2023-0 4-21 00:00: 00 Yes 5mg Take 1 tablet by mouth in the morning. [facility] memantine 5 mg tablet 2023-0 4-21 00:00: 00 Yes 5mg Take 1 tablet by mouth in the morning. [facility] donepeziL 5 mg tablet 3-0 4-21 00:00: 00 Yes 5mg Take 1 tablet by mouth in the morning. [facility] memantine 5 mg tablet 2023-0 4-21 00:00: 00 Yes 5mg Take 1 tablet by mouth in the morning. [facility] donepeziL 5 mg tablet 2023-0 4-21 00:00: 00 Yes 5mg Take 1 tablet by mouth in the morning. [facility] memantine 5 mg tablet 3-0 4-21 00:00: 00 Yes 5mg Take 1 tablet by mouth in the morning. [facility] donepeziL 5 mg tablet 3-0 4-21 00:00: 00 Yes 5mg Take 1 tablet by mouth in the morning. [facility] memantine 5 mg tablet 3-0 4-21 00:00: 00 Yes 5mg Take 1 tablet by mouth in the morning. [facility] donepeziL 5 mg tablet 3-0 4-21 00:00: 00 Yes 5mg Take 1 tablet by mouth in the morning. [facility] memantine 5 mg tablet 3-0 4-21 00:00: 00 Yes 5mg Take 1 tablet by mouth in the morning. [facility] donepeziL 5 mg tablet 2023-0 4-21 00:00: 00 Yes 5mg Take 1 tablet by mouth in the morning. [facility] memantine 5 mg tablet 3-0 4-21 00:00: 00 Yes 5mg Take 1 tablet by mouth in the morning. [facility] donepeziL 5 mg tablet 2023-0 4-21 00:00: 00 Yes 5mg Take 1 tablet by mouth in the morning. [facility] memantine 5 mg tablet 2023-0 4-21 00:00: 00 Yes 5mg Take 1 tablet by mouth in the morning. [facility] donepeziL 5 mg tablet 2023-0 4-21 00:00: 00 Yes 5mg Take 1 tablet by mouth in the morning. [facility] memantine 5 mg tablet 3-0 4-21 00:00: 00 Yes 5mg Take 1 tablet by mouth in the morning. [facility] donepeziL 5 mg tablet 3-0 4-21 00:00: 00 Yes 5mg Take 1 tablet by mouth in the morning. [facility] memantine 5 mg tablet 3-0 4-21 00:00: 00 Yes 5mg Take 1 tablet by mouth in the morning. [facility] donepeziL 5 mg tablet 3-0 4-21 00:00: 00 Yes 5mg Take 1 tablet by mouth in the morning. [facility] memantine 5 mg tablet 3-0 4-21 00:00: 00 Yes 5mg Take 1 tablet by mouth in the morning. [facility] donepeziL 5 mg tablet 3-0 4-21 00:00: 00 Yes 5mg Take 1 tablet by mouth in the morning. [facility] memantine 5 mg tablet 3-0 4-21 00:00: 00 Yes 5mg Take 1 tablet by mouth in the morning. [facility] donepeziL 5 mg tablet 3-0 4-21 00:00: 00 03-01 00:00 :00 No 5mg Take 1 tablet by mouth in the morning. [facility] memantine 5 mg tablet 3-0 4-21 00:00: 00 03-01 00:00 :00 No 5mg Take 1 tablet by mouth in the morning. [facility] donepeziL 5 mg tablet 3-0 4-21 00:00: 00 03-01 00:00 :00 No 5mg Take 1 tablet by mouth in the morning. [facility] memantine 5 mg tablet 3-0 4-21 00:00: 00 03-01 00:00 :00 No 5mg Take 1 tablet by mouth in the morning. [facility] tamsulosin 0.4 mg 24 hr capsule 2023-0 3-27 00:00: 01-13 04:59 :00 No [id number] .4mg Take 1 capsule by mouth in the morning for 30 days. [facility] tamsulosin 0.4 mg 24 hr capsule 12-13 00:00: 00 01-13 04:59 :00 No [id number] .4mg Take 1 capsule by mouth in the morning for 30 days. [facility] tamsulosin 0.4 mg 24 hr capsule 12-13 00:00: 00 01-13 04:59 :00 No [id number] .4mg Take 1 capsule by mouth in the morning for 30 days. [facility] tamsulosin 0.4 mg 24 hr capsule 12-13 00:00: 00 01-13 04:59 :00 No [id number] .4mg Take 1 capsule by mouth in the morning for 30 days. [facility] tamsulosin 0.4 mg 24 hr capsule 12-13 00:00: 00 01-13 04:59 :00 No [id number] .4mg Take 1 capsule by mouth in the morning for 30 days. [facility] tamsulosin 0.4 mg 24 hr capsule 12-13 00:00: 00 01-13 04:59 :00 No [id number] .4mg Take 1 capsule by mouth in the morning for 30 days. [facility] donepeziL (ARICEPT) tablet 5 mg 12-12 17:30: 00 Yes 5mg 5 mg, Oral, DAILY, First dose on 12/12/22 at 1230, Until Discontinu ed, Routine [facility] memantine (NAMENDA) tablet 5 mg 12-12 17:30: 00 Yes 5mg 5 mg, Oral, DAILY, First dose on 12/12/22 at 1230, Until Discontinu ed, Routine
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 [facility] rivaroxaban (XARELTO) 15 mg tablet 12-12 14:37: 13 Yes 15mg Take 1 tablet by mouth in the morning. [facility] aspirin 81 mg chewable tablet 2022-12-12 14:37: 13 Yes 81mg Take 81 mg by mouth in the morning. tablet [facility] busPIRone 10 mg tablet 12-12 14:37: 13 Yes 10mg Take 1 tablet by mouth in the morning and 1 tablet in the evening. [facility] rivaroxaban (XARELTO) 15 mg tablet 2022-12-12 14:37: 13 Yes 15mg Take 1 tablet by mouth in the morning. [facility] busPIRone 10 mg tablet 2022-12-12 14:37: 13 Yes 10mg Take 1 tablet by mouth in the morning and 1 tablet in the evening. [facility] rivaroxaban (XARELTO) 15 mg tablet 12-12 14:37: 13 Yes 15mg Take 1 tablet by mouth in the morning. [facility] aspirin 81 mg chewable tablet 12-12 14:37: 13 Yes 81mg Take 81 mg by mouth in the morning. tablet [facility] busPIRone 10 mg tablet 12-12 14:37: 13 Yes 10mg Take 1 tablet by mouth in the morning and 1 tablet in the evening. [facility] rivaroxaban (XARELTO) 15 mg tablet 12-12 14:37: 13 Yes 15mg Take 1 tablet by mouth in the morning. [facility] aspirin 81 mg chewable tablet 12-12 14:37: 13 Yes 81mg Take 81 mg by mouth in the morning. tablet [facility] tamsulosin (FLOMAX) capsule 0.4 mg 12-12 14:00: 00 Yes .4mg 0.4 mg, Oral, DAILY, First dose on 12/12/22 at 0900, Until Discontinu ed, Routine [facility] aspirin EC tablet 81 mg 12-12 14:00: 00 Yes 81mg 81 mg, Oral, DAILY, First dose on 12/12/22 at 0900, Until Discontinu ed, Routine [facility] methylpredn isolone sod succ (SOLU-MEDRO L) injection 40 mg 12-12 14:00: 00 Yes 40mg 40 mg, Intravenou s, DAILY, First dose (after last modificati on) on 12/12/22 at 0900, Until Discontinu ed, Routine [facility] carvediloL 25 mg tablet 12-12 11:47: 13 12-12 00:00 :00 No 25mg Take 1 tablet by mouth in the morning and 1 tablet in the evening. Take with meals. [facility] busPIRone 30 mg tablet 12-12 11:47: 13 12-12 00:00 :00 No 30mg Take 1 tablet by mouth in the morning and 1 tablet in the evening. [facility] KCL 20 mEq tablet 12-12 11:47: 13 12-12 00:00 :00 No Take by mouth 2 (two) times daily. [facility] benazepriL 10 mg tablet 12-12 11:47: 13 12-12 00:00 :00 No 10mg Take 1 tablet by mouth in the morning. [facility] hydroCHLORO thiazide 25 mg tablet 12-12 11:47: 12-12 00:00 :00 No 25mg Take 1 tablet by mouth in the morning. [facility] melatonin (MELATIN) tablet 6 mg 12-12 02:00: 00 Yes 6mg 6 mg, Oral, QHS, First dose on 12/11/22 at 2100, Until Discontinu ed, Routine [facility] atorvastati n (LIPITOR) tablet 40 mg 12-12 02:00: 00 Yes 40mg 40 mg, Oral, QHS, First dose on 12/11/22 at 2100, Until Discontinu ed, Routine [facility] carvediloL 3.125 mg tablet 0 12-12 00:00: 00 01-12 04:59 :00 No [id number] 3.125mg Take 1 tablet by mouth in the morning and 1 tablet in the evening. Take with meals. Do all this for 30 days. [facility] atorvastati n 40 mg tablet 0 12-12 00:00: 00 01-12 04:59 :00 No [id number] 40mg Take 1 tablet by mouth at bedtime for 30 days. [facility] donepeziL 5 mg tablet 0 12-12 00:00: 00 01-12 04:59 :00 No [id number] 5mg Take 1 tablet by mouth in the morning for 30 days. [facility] memantine 5 mg tablet 12-12 00:00: 00 01-12 04:59 :00 No [id number] 5mg Take 1 tablet by mouth in the morning for 30 days. [facility] carvediloL 3.125 mg tablet 0 12-12 00:00: 00 01-12 04:59 :00 No [id number] 3.125mg Take 1 tablet by mouth in the morning and 1 tablet in the evening. Take with meals. Do all this for 30 days. [facility] atorvastati n 40 mg tablet 12-12 00:00: 00 01-12 04:59 :00 No [id number] 40mg Take 1 tablet by mouth at bedtime for 30 days. [facility] donepeziL 5 mg tablet 0 12-12 00:00: 00 01-12 04:59 :00 No [id number] 5mg Take 1 tablet by mouth in the morning for 30 days. [facility] memantine 5 mg tablet 0 12-12 00:00: 00 01-12 04:59 :00 No [id number] 5mg Take 1 tablet by mouth in the morning for 30 days. [facility] carvediloL 3.125 mg tablet 0 12-12 00:00: 00 01-12 04:59 :00 No [id number] 3.125mg Take 1 tablet by mouth in the morning and 1 tablet in the evening. Take with meals. Do all this for 30 days. [facility] atorvastati n 40 mg tablet 12-12 00:00: 00 01-12 04:59 :00 No [id number] 40mg Take 1 tablet by mouth at bedtime for 30 days. [facility] donepeziL 5 mg tablet 12-12 00:00: 00 01-12 04:59 :00 No [id number] 5mg Take 1 tablet by mouth in the morning for 30 days. [facility] memantine 5 mg tablet 12-12 00:00: 00 01-12 04:59 :00 No [id number] 5mg Take 1 tablet by mouth in the morning for 30 days. [facility] carvediloL 3.125 mg tablet 12-12 00:00: 00 01-12 04:59 :00 No [id number] 3.125mg Take 1 tablet by mouth in the morning and 1 tablet in the evening. Take with meals. Do all this for 30 days. [facility] atorvastati n 40 mg tablet 12-12 00:00: 00 01-12 04:59 :00 No [id number] 40mg Take 1 tablet by mouth at bedtime for 30 days. [facility] carvediloL 3.125 mg tablet 12-12 00:00: 00 01-12 04:59 :00 No [id number] 3.125mg Take 1 tablet by mouth in the morning and 1 tablet in the evening. Take with meals. Do all this for 30 days. [facility] atorvastati n 40 mg tablet 12-12 00:00: 00 01-12 04:59 :00 No [id number] 40mg Take 1 tablet by mouth at bedtime for 30 days. [facility] carvediloL 3.125 mg tablet 12-12 00:00: 00 01-12 04:59 :00 No [id number] 3.125mg Take 1 tablet by mouth in the morning and 1 tablet in the evening. Take with meals. Do all this for 30 days. [facility] atorvastati n 40 mg tablet 12-12 00:00: 00 01-12 04:59 :00 No [id number] 40mg Take 1 tablet by mouth at bedtime for 30 days. [facility] donepeziL 5 mg tablet 12-12 00:00: 00 01-07 00:00 :00 No [id number] 5mg Take 1 tablet by mouth in the morning for 30 days. [facility] memantine 5 mg tablet 12-12 00:00: 00 01-07 00:00 :00 No [id number] 5mg Take 1 tablet by mouth in the morning for 30 days. [facility] donepeziL 5 mg tablet 12-12 00:00: 00 01-07 00:00 :00 No [id number] 5mg Take 1 tablet by mouth in the morning for 30 days. [facility] memantine 5 mg tablet 12-12 00:00: 00 01-07 00:00 :00 No [id number] 5mg Take 1 tablet by mouth in the morning for 30 days. [facility] levalbutero l (XOPENEX) nebulizer solution 1.25 mg 12-11 17:00: 00 Yes 1.25mg 1.25 mg, Inhalation , QID, First dose (after last modificati on) on [facility] 12/11/22 at 1200, Until Discontinu ed, Routine [facility] rivaroxaban (XARELTO) tablet 15 mg 12-11 14:00: 00 Yes 15mg 15 mg, Oral, DAILY, First dose on [facility] 12/11/22 at 0900, Until Discontinu ed, Routine [facility] nicotine (NICODERM) 21 mg/24 hr patch 1 Patch 12-11 13:45: 00 Yes 1{patch } 1 Patch, Topical, Administer over 24 Hours, Q24H, First dose on [facility] 12/11/22 at 0845, Until Discontinu ed, Routine [facility] ipratropium (ATROVENT) 0.02 % nebulizer solution 0.5 mg 12-11 13:00: 00 Yes .5mg 0.5 mg, Inhalation , QID, First dose on 12/11/22 at 0800, Until [facility]continu ed [facility] (COREG) tablet 3.125 mg 12-11 13:00: 00 Yes 3.125mg 3.125 mg, Oral, BID MEALS, First dose on 12/11/22 at 0800, Until Discontinu ed, Routine [facility] busPIRone (BUSPAR) tablet 10 mg 12-11 13:00: 00 Yes 10mg 10 mg, Oral, BID, First dose on Tue12/11/22 at 0800, Until Discontinu ed, Routine [facility] methylpredn isolone sod succ (SOLU-MEDRO L) injection 125 mg 12-11 05:00: 00 12-11 12:35 :32 No 125mg 125 mg, Intravenou s, Q6H, First dose on Tue12/11/22 at 0000, Until Discontinu ed, Routine [facility] NaCl 0.9% (NS) IV infusion 1,000 mL 12-11 03:30: 00 12-11 14:48 :38 No 1000mL at 100 mL/hr, IV Infusion, CONTINUOUS , Starting on Tue12/10/22 at 2230, Until Tue12/11/22 at 0948, Routine [facility] albuterol (VENTOLIN) inhaler 2 Puff 12-11 03:17: 09 Yes 2{puff} 2 Puff, Inhalation , Q4HPRN, Starting on Tue12/10/22 at 2217, Until Discontinu ed, Routine, Wheezing, Shortness of Breath [facility] ondansetron (ZOFRAN (PF)) injection 4 mg 12-11 03:05: 14 Yes 4mg 4 mg, Slow IV Push, Q6HPRN, Starting on Tue12/10/22 at 2205, Until Discontinu ed, Routine, Nausea and Vomiting (N/V) [facility] HYDROcodone -acetaminop hen (NORCO) 10-325 mg tablet 1 tablet 12-11 03:05: 00 Yes 1{tbl} 1 tablet, Oral, Q6HPRN, Starting on Tue12/10/22 at 2205, Until Discontinu ed, Routine, Pain (scale 7-10) [facility] HYDROcodone -acetaminop hen (NORCO 5) 5-325 mg tablet 1 tablet 12-11 03:04: 56 12-13 03:03 :56 No 1{tbl} 1 tablet, Oral, Q6HPRN, Starting on Tue12/10/22 at 220, Until Tue12/12/22 at 220, Routine, Pain (scale 4-6) [facility] acetaminoph en (TYLENOL) tablet 650 mg 12-11 03:04: 50 Yes 650mg 650 mg, Oral, Q6HPRN, Starting on Tue12/10/22 at 2204, Until Discontinu ed, Routine, Pain (scale 1-3) [facility] levalbutero l (XOPENEX) nebulizer solution 1.25 mg 12-11 01:00: 00 12-11 15:57 :00 No 1.25mg 1.25 mg, Inhalation , TID, First dose on Tue12/10/22 at 2000, Until Discontinu ed, Routine [facility] NaCl 0.9% (NS) bolus infusion 1,000 mL 12-11 00:15: 00 12-11 03:18 :00 No 1000mL at 999 mL/hr, 1,000 mL, IV Infusion, ONCE, 1 dose, On Tue12/10/22 at 1915, STAT [facility] ipratropium (ATROVENT) 0.02 % nebulizer solution 0.5 mg 12-10 23:48: 58 Yes .5mg 0.5 mg, Inhalation , Q4HPRN, Starting on Tue12/10/22 at 1848, Until Discontinu ed, Routine, Wheezing, Shortness of Breath [facility] NaCl 0.9% (NS) bolus infusion 500 mL 12-04 16:15: 00 12-04 15:41 :58 No 500mL at 999 mL/hr, 500 mL, IV Piggyback, ONCE, 1 dose, On 12/04/22 at 1115, STAT [facility] carvediloL 3.125 mg tablet 12-04 12:44: 03 Yes 3.125mg Take 1 tablet by mouth in the morning and 1 tablet in the evening. Take with meals. [facility] busPIRone 10 mg tablet 12-04 12:44: 03 Yes 10mg Take 1 tablet by mouth in the morning and 1 tablet in the evening. [facility] busPIRone 30 mg tablet 12-04 12:44: 03 Yes 30mg Take 1 tablet by mouth in the morning and 1 tablet in the evening. [facility] KCL 20 mEq tablet 12-04 12:44: 03 Yes Take by mouth 2 (two) times daily. [facility] benazepriL 10 mg tablet 12-04 12:44: 03 Yes 10mg Take 1 tablet by mouth in the morning. [facility] rivaroxaban (XARELTO) 15 mg tablet 12-04 12:44: 03 Yes 15mg Take 1 tablet by mouth in the morning. [facility] carvediloL 3.125 mg tablet 12-04 12:44: 03 Yes 3.125mg Take 1 tablet by mouth in the morning and 1 tablet in the evening. Take with meals. [facility] busPIRone 10 mg tablet 12-04 12:44: 03 Yes 10mg Take 1 tablet by mouth in the morning and 1 tablet in the evening. [facility] busPIRone 30 mg tablet 2022-12-04 12:44: 03 Yes 30mg Take 1 tablet by mouth in the morning and 1 tablet in the evening. [facility] KCL 20 mEq tablet 12-04 12:44: 03 Yes Take by mouth 2 (two) times daily. [facility] benazepriL 10 mg tablet 2023-0 3-18 12:44: 03 Yes 10mg Take 1 tablet by mouth in the morning. [facility] rivaroxaban (XARELTO) 15 mg tablet 2023-0 3-18 12:44: 03 Yes 15mg Take 1 tablet by mouth in the morning. [facility] carvediloL 3.125 mg tablet 2023-0 3-18 12:44: 03 Yes 3.125mg Take 1 tablet by mouth in the morning and 1 tablet in the evening. Take with meals. [facility] busPIRone 10 mg tablet 3-0 3-18 12:44: 03 Yes 10mg Take 1 tablet by mouth in the morning and 1 tablet in the evening. [facility] busPIRone 30 mg tablet 3-0 3-18 12:44: 03 Yes 30mg Take 1 tablet by mouth in the morning and 1 tablet in the evening. [facility] KCL 20 mEq tablet 3-0 3-18 12:44: 03 Yes Take by mouth 2 (two) times daily. [facility] benazepriL 10 mg tablet 3-0 3-18 12:44: 03 Yes 10mg Take 1 tablet by mouth in the morning. [facility] rivaroxaban (XARELTO) 15 mg tablet 3-0 3-18 12:44: 03 Yes 15mg Take 1 tablet by mouth in the morning. [facility] carvediloL 3.125 mg tablet 3-0 3-18 12:44: 03 Yes 3.125mg Take 1 tablet by mouth in the morning and 1 tablet in the evening. Take with meals. [facility] busPIRone 10 mg tablet 2023-0 3-18 12:44: 03 Yes 10mg Take 1 tablet by mouth in the morning and 1 tablet in the evening. [facility] busPIRone 30 mg tablet 2023-0 3-18 12:44: 03 Yes 30mg Take 1 tablet by mouth in the morning and 1 tablet in the evening. [facility] KCL 20 mEq tablet 2023-0 3-18 12:44: 03 Yes Take by mouth 2 (two) times daily. [facility] benazepriL 10 mg tablet 12-04 12:44: 03 Yes 10mg Take 1 tablet by mouth in the morning. [facility] rivaroxaban (XARELTO) 15 mg tablet 12-04 12:44: 03 Yes 15mg Take 1 tablet by mouth in the morning. [facility] albuterol 90 mcg/actuati on inhaler 12-04 00:00: 00 Yes [id number] 2{puff} Inhale 2 Puffs every 6 (six) hours as needed for Wheezing or Shortness of Breath. [facility] albuterol 90 mcg/actuati on inhaler 12-04 00:00: 00 Yes [id number] 2{puff} Inhale 2 Puffs every 6 (six) hours as needed for Wheezing or Shortness of Breath. [facility] albuterol 90 mcg/actuati on inhaler 12-04 00:00: 00 Yes [id number] 2{puff} Inhale 2 Puffs every 6 (six) hours as needed for Wheezing or Shortness of Breath. [facility] albuterol 90 mcg/actuati on inhaler 12-04 00:00: 00 Yes [id number] 2{puff} Inhale 2 Puffs every 6 (six) hours as needed for Wheezing or Shortness of Breath. [facility] albuterol 90 mcg/actuati on inhaler 12-04 00:00: 00 Yes [id number] 2{puff} Inhale 2 Puffs every 6 (six) hours as needed for Wheezing or Shortness of Breath. [facility] albuterol 90 mcg/actuati on inhaler 12-04 00:00: 00 Yes [id number] 2{puff} Inhale 2 Puffs every 6 (six) hours as needed for Wheezing or Shortness of Breath. [facility] albuterol 90 mcg/actuati on inhaler 12-04 00:00: 00 Yes [id number] 2{puff} Inhale 2 Puffs every 6 (six) hours as needed for Wheezing or Shortness of Breath. [facility] albuterol 90 mcg/actuati on inhaler 12-04 00:00: 00 Yes [id number] 2{puff} Inhale 2 Puffs every 6 (six) hours as needed for Wheezing or Shortness of Breath. [facility] albuterol 90 mcg/actuati on inhaler 12-04 00:00: 00 Yes [id number] 2{puff} Inhale 2 Puffs every 6 (six) hours as needed for Wheezing or Shortness of Breath. [facility] albuterol 90 mcg/actuati on inhaler 12-04 00:00: 00 Yes [id number] 2{puff} Inhale 2 Puffs every 6 (six) hours as needed for Wheezing or Shortness of Breath. [facility] albuterol 90 mcg/actuati on inhaler 12-04 00:00: 00 Yes [id number] 2{puff} Inhale 2 Puffs every 6 (six) hours as needed for Wheezing or Shortness of Breath. [facility] albuterol 90 mcg/actuati on inhaler 12-04 00:00: 00 Yes [id number] 2{puff} Inhale 2 Puffs every 6 (six) hours as needed for Wheezing or Shortness of Breath. [facility] albuterol 90 mcg/actuati on inhaler 12-04 00:00: 00 01-19 00:00 :00 No [id number] 2{puff} Inhale 2 Puffs every 6 (six) hours as needed for Wheezing or Shortness of Breath. [facility] tiotropium 18 mcg inhalation 18 00:00: 00 01-04 04:59 :00 No [id number] 18ug Inhale 1 capsule in the morning for 30 days. [facility] tiotropium 18 mcg inhalation 18 00:00: 00 01-04 04:59 :00 No [id number] 18ug Inhale 1 capsule in the morning for 30 days. [facility] tiotropium 18 mcg inhalation 3-0 3-18 00:00: 00 01-04 04:59 :00 No [id number] 18ug Inhale 1 capsule in the morning for 30 days. [facility] tiotropium 18 mcg inhalation 3-0 3-18 00:00: 00 01-04 04:59 :00 No [id number] 18ug Inhale 1 capsule in the morning for 30 days. [facility] tiotropium 18 mcg inhalation 3-0 3-18 00:00: 00 01-04 04:59 :00 No [id number] 18ug Inhale 1 capsule in the morning for 30 days. [facility] tiotropium 18 mcg inhalation 2022-0 3-18 00:00: 00 01-04 04:59 :00 No [id number] 18ug Inhale 1 capsule in the morning for 30 days. [facility] tiotropium 18 mcg inhalation 2022-0 3-18 00:00: 00 01-04 04:59 :00 No [id number] 18ug Inhale 1 capsule in the morning for 30 days. [facility] tiotropium 18 mcg inhalation 2022-0 3-18 00:00: 00 01-04 04:59 :00 No [id number] 18ug Inhale 1 capsule in the morning for 30 days. [facility] doxycycline hyclate 100 mg capsule 2022-0 3-18 00:00: 00 12-10 04:59 :00 No [id number] 100mg Take 1 capsule by mouth every 12 (twelve) hours for 5 days. [facility] predniSONE 20 mg tablet 3-0 3-18 00:00: 00 12-10 04:59 :00 No [id number] 40mg Take 2 tablets by mouth in the morning for 5 days. [facility] doxycycline hyclate 100 mg capsule 3-0 3-18 00:00: 00 12-10 04:59 :00 No [id number] 100mg Take 1 capsule by mouth every 12 (twelve) hours for 5 days. [facility] predniSONE 20 mg tablet 12-04 00:00: 00 12-10 04:59 :00 No [id number] 40mg Take 2 tablets by mouth in the morning for 5 days. [facility] rivaroxaban (XARELTO) tablet 15 mg 12-03 17:15: 00 Yes 15mg 15 mg, Oral, DAILY, First dose (after last modificati on) on Tue12/03/22 at 1215, Until Discontinu ed, Routine [facility] enoxaparin (LOVENOX) injection 40 mg 12-02 22:00: 00 12-03 16:06 :59 No 40mg 40 mg, Subcutaneo us, DAILY, First dose on Tue12/02/22 at 1700, Until Discontinu ed, Routine [facility] methylPREDN ISolone sod succ (SOLU-MEDRO L (PF)) injection 40 mg 12-02 19:00: 00 Yes 40mg 40 mg, Intravenou s, Q8H, First dose on Tue12/02/22 at 1400, Until Discontinu ed, 1 mL [facility] codeine-gua ifenesin (ROBITUSSIN AC) 10-100 mg/5 mL oral solution 5 mL 12-02 16:25: 07 Yes 5mL 5 mL, Oral, Q6HPRN, Starting on Tue12/02/22 at 1125, Until Discontinu ed, Routine, Cough [facility] levalbutero l (XOPENEX) nebulizer solution 1.25 mg 12-02 13:00: 00 Yes 1.25mg 1.25 mg, Inhalation , Q4H, First dose on Tue12/02/22 at 0800, Until Discontinu ed, Routine [facility] ipratropium (ATROVENT) 0.02 % nebulizer solution 0.5 mg 12-02 13:00: 00 Yes .5mg 0.5 mg, Inhalation , Q4H, First dose on Tue12/02/22 at 0800, Until Discontinu ed, [facility] (Vibramycin ) capsule 100 mg 12-02 11:45: 00 12-07 11:44 :00 No 100mg 100 mg, Oral, Q12H ABX, 10 doses, First dose on [facility] 12/02/22 at 0645, Last dose on Tue12/06/22 at 1845, MICHAEL
Re ason for Anti-Infec tive: Empiric Therapy for Suspected Infection< br>Empiric Therapy Site: Respirator y
Durat ion of therapy: 5 days [facility] NaCl 0.9% (NS) IV infusion 1,000 mL 12-02 11:45: 00 12-02 14:24 :54 No 1000mL at 75 mL/hr, IV Infusion, CONTINUOUS , Starting on Tue12/02/22 at 0645, Until [facility] 12/02/22 at 0924, Routine [facility] famotidine (PEPCID AC) tablet 20 mg 12-02 11:30: 03 Yes 20mg 20 mg, Oral, BIDPRN, Starting on Tue12/02/22 at 0630, Until Discontinu ed, Routine, Indigestio n, Heartburn [facility] ondansetron (ZOFRAN (PF)) injection 4 mg 12-02 11:30: 03 Yes 4mg 4 mg, Slow IV Push, Q6HPRN, Starting on Tue12/02/22 at 0630, Until Discontinu ed, Routine, Nausea and Vomiting (N/V) [facility] bisacodyL (DULCOLAX) tablet 10 mg 12-02 11:30: 03 Yes 10mg 10 mg, Oral, QDAILYPRN, Starting on Tue12/02/22 at 0630, Until Discontinu ed, Routine, Constipati on [facility] acetaminoph en (TYLENOL) tablet 650 mg 12-02 11:30: 03 Yes 650mg 650 mg, Oral, Q6HPRN, Starting on Tue12/02/22 at 0630, Until Discontinu ed, Routine, Pain (scale 1-3) [facility] methylpredn isolone sod succ (SOLU-MEDRO L) injection 125 mg 12-02 06:15: 00 12-02 05:27 :00 No 125mg 125 mg, Intravenou s, ONCE, 1 dose, On [facility] 12/02/22 at 0115, 2 mL [facility] ipratropium -albuteroL (DUONEB) 0.5 mg-3 mg(2.5 mg base)/3 mL nebulizer solution 6 mL 12-02 06:15: 00 12-02 05:33 :00 No 6mL 6 mL, Inhalation , ONCE, 1 dose, On [facility] 12/02/22 at 0115, Routine [facility] levalbutero l (XOPENEX) nebulizer solution 0.63 mg 12-01 13:15: 00 12-01 12:38 :00 No .63mg 0.63 mg, Inhalation , ONCE, 1 dose, On Tue12/01/22 at 0815, Routine [facility] ipratropium (ATROVENT) 0.02 % nebulizer solution 0.5 mg 12-01 12:30: 00 12-01 12:38 :00 No .5mg 0.5 mg, Inhalation , ONCE, 1 dose, On Tue12/01/22 at 0730, MICHAEL [facility] levalbutero l (XOPENEX) nebulizer solution 1.25 mg 12-01 11:15: 00 12-01 10:38 :00 No 1.25mg 1.25 mg, Inhalation , ONCE, 1 dose, On Tue12/01/22 at 0615, Routine [facility] ipratropium (ATROVENT) 0.02 % nebulizer solution 0.5 mg 12-01 10:30: 00 12-01 10:38 :00 No .5mg 0.5 mg, Inhalation , ONCE, 1 dose, On Tue12/01/22 at 0530, [facility] methylPREDN ISolone sod succ (SOLU-MEDRO L (PF)) injection 40 mg 12-01 10:30: 00 12-01 10:35 :00 No 40mg 40 mg, Intravenou s, ONCE, 1 dose, On Tue12/01/22 at 0530, MICHAEL [facility] Nebulizer & Compressor For Neb Kami 12-01 00:00: 00 Yes [id number] Use as directed [facility] albuterol 90 mcg/actuati on inhaler 12-01 00:00: 00 Yes [id number] 2{puff} Inhale 2 Puffs every 4 (four) hours as needed for Wheezing or Shortness of Breath. [facility] Nebulizer & Compressor For Neb 12-01 00:00: 00 Yes [id number] Use as directed [facility] albuterol 90 mcg/actuati on inhaler 12-01 00:00: 00 Yes [id number] 2{puff} Inhale 2 Puffs every 4 (four) hours as needed for Wheezing or Shortness of Breath. [facility] Nebulizer & Compressor For Neb 12-01 00:00: 00 Yes [id number] Use as directed [facility] albuterol 90 mcg/actuati on inhaler 12-01 00:00: 00 Yes [id number] 2{puff} Inhale 2 Puffs every 4 (four) hours as needed for Wheezing or Shortness of Breath. [facility] Nebulizer & Compressor For Neb Kami 12-01 00:00: 00 Yes [id number] Use as directed [facility] Nebulizer & Compressor For Neb 0 12-01 00:00: 00 Yes [id number] Use as directed [facility] Nebulizer & Compressor For Neb Kami 12-01 00:00: 00 Yes [id number] Use as directed [facility] Nebulizer & Compressor For Neb Kami 12-01 00:00: 00 Yes [id number] Use as directed [facility] Nebulizer & Compressor For Neb Kami 2023-0 3-15 00:00: 00 Yes [id number] Use as directed [facility] Nebulizer & Compressor For Neb Kami 3-0 3-15 00:00: 00 Yes [id number] Use as directed [facility] Nebulizer & Compressor For Neb Kami 3-0 3-15 00:00: 00 Yes [id number] Use as directed [facility] Nebulizer & Compressor For Neb Kami 3-0 3-15 00:00: 00 Yes [id number] Use as directed [facility] Nebulizer & Compressor For Neb Kami 3-0 3-15 00:00: 00 Yes [id number] Use as directed [facility] Nebulizer & Compressor For Neb Kami 3-0 3-15 00:00: 00 Yes [id number] Use as directed [facility] Nebulizer & Compressor For Neb Kami 2022-0 3-15 00:00: 00 Yes [id number] Use as directed [facility] Nebulizer & Compressor For Neb Kami 3-0 3-15 00:00: 00 Yes [id number] Use as directed [facility] Nebulizer & Compressor For Neb Kami 2022-0 3-15 00:00: 00 Yes [id number] Use as directed [facility] Nebulizer & Compressor For Neb Kaim 3-0 3-15 00:00: 00 Yes [id number] Use as directed [facility] Nebulizer & Compressor For Neb Kami 2022-0 3-15 00:00: 00 Yes [id number] Use as directed [facility] Nebulizer & Compressor For Neb Kami 3-0 3-15 00:00: 00 Yes [id number] Use as directed [facility] Nebulizer & Compressor For Neb Kami 3-0 3-15 00:00: 00 Yes [id number] Use as directed [facility] Nebulizer & Compressor For Neb Kami 3-0 3-15 00:00: 00 Yes [id number] Use as directed [facility] Nebulizer & Compressor For Neb Kami 3-0 3-15 00:00: 00 Yes [id number] Use as directed [facility] Nebulizer & Compressor For Neb Kami 2022-0 3-15 00:00: 00 Yes [id number] Use as directed [facility] Nebulizer & Compressor For Neb Kami 2022-0 3-15 00:00: 00 Yes [id number] Use as directed [facility] Nebulizer & Compressor For Neb Kami 2022-0 3-15 00:00: 00 Yes [id number] Use as directed [facility] Nebulizer & Compressor For Neb Kami 3-0 3-15 00:00: 00 Yes [id number] Use as directed [facility] Nebulizer & Compressor For Neb Kami 2022-0 3-15 00:00: 00 Yes [id number] Use as directed [facility] Nebulizer & Compressor For Neb Kami 2022-0 3-15 00:00: 00 Yes [id number] Use as directed [facility] Nebulizer & Compressor For Neb Kami 2022-0 3-15 00:00: 00 Yes [id number] Use as directed [facility] Nebulizer & Compressor For Neb Kami 2022-0 3-15 00:00: 00 Yes [id number] Use as directed [facility] Nebulizer & Compressor For Neb Kami 2022-0 3-15 00:00: 00 Yes [id number] Use as directed [facility] Nebulizer & Compressor For Neb Kami 2022-0 3-15 00:00: 00 Yes [id number] Use as directed [facility] Nebulizer & Compressor For Neb Kami 3-0 3-15 00:00: 00 Yes [id number] Use as directed [facility] Nebulizer & Compressor For Neb Kami 2022-0 3-15 00:00: 00 Yes [id number] Use as directed [facility] Nebulizer & Compressor For Neb Kami 3-0 3-15 00:00: 00 Yes [id number] Use as directed [facility] Nebulizer & Compressor For Neb Kami 3-0 3-15 00:00: 00 Yes [id number] Use as directed [facility] Nebulizer & Compressor For Neb Kami 0 3-15 00:00: 00 Yes [id number] Use as directed [facility] Nebulizer & Compressor For Neb Kami 0 3-15 00:00: 00 Yes [id number] Use as directed [facility] Nebulizer & Compressor For Neb Kami 0 3-15 00:00: 00 Yes [id number] Use as directed [facility] Nebulizer & Compressor For Neb Kami 0 3-15 00:00: 00 Yes [id number] Use as directed [facility] Nebulizer & Compressor For Neb Kami 0 315 00:00: 00 Yes [id number] Use as directed [facility] Nebulizer & Compressor For Neb Kami 0 315 00:00: 00 Yes [id number] Use as directed [facility] Nebulizer & Compressor For Neb Kami 0 315 00:00: 00 Yes [id number] Use as directed [facility] Nebulizer & Compressor For Neb Kami 0 315 00:00: 00 Yes [id number] Use as directed [facility] albuterol 90 mcg/actuati on inhaler 315 00:00: 00 Yes [id number] 2{puff} Inhale 2 Puffs every 4 (four) hours as needed for Wheezing or Shortness of Breath. [facility] predniSONE 50 mg tablet 315 00:00: 00 Yes [id number] 50mg Take 1 tablet by mouth in the morning. [facility] Nebulizer & Compressor For Neb Kami 0 3-15 00:00: 00 Yes [id number] Use as directed [facility] albuterol 90 mcg/actuati on inhaler 0 3-15 00:00: 00 Yes [id number] 2{puff} Inhale 2 Puffs every 4 (four) hours as needed for Wheezing or Shortness of Breath. [facility] albuterol 90 mcg/actuati on inhaler 2023-0 3-15 00:00: 00 12-12 00:00 :00 No [id number] 2{puff} Inhale 2 Puffs every 4 (four) hours as needed for Wheezing or Shortness of Breath. [facility] predniSONE 50 mg tablet 12-01 00:00: 00 12-04 00:00 :00 No [id number] 50mg Take 1 tablet by mouth in the morning. [facility] omeprazole 40 mg capsule 11-28 14:11: 11-28 00:00 :00 No 40mg Take 40 mg by mouth daily. [facility] carvediloL 25 mg tablet 11-28 14:11-28 00:00 :00 No 25mg Take 25 mg by mouth 2 (two) times daily with meals. [facility] busPIRone 30 mg tablet 11-28 14:: 11-28 00:00 :00 No 30mg Take 30 mg by mouth 2 (two) times daily. [facility] benazepriL 10 mg tablet 11-28 14:11: 11-28 00:00 :00 No 10mg Take 10 mg by mouth daily. [facility] hydroCHLORO thiazide 25 mg tablet 11-28 14:11: 11-28 00:00 :00 No 25mg Take 25 mg by mouth daily. [facility] levalbutero l (XOPENEX) nebulizer solution 0.63 mg 11-28 13:00: 00 Yes .63mg 0.63 mg, Inhalation , TID, First dose (after last modificati on) on 11/28/22 at 0800, Until Discontinu ed, Routine [facility] ipratropium (ATROVENT) 0.02 % nebulizer solution 0.5 mg 11-27 20:00: 00 Yes .5mg 0.5 mg, Inhalation , TID, First dose (after last modificati on) on 11/27/22 at 1400, Until Discontinu ed, Routine [facility] nicotine (NICODERM) 21 mg/24 hr patch 1 Patch 11-27 17:30: 00 Yes 1{patch } 1 Patch, Topical, Administer over 24 Hours, Q24H, First dose on 11/27/22 at 1130, Until Discontinu ed, Routine [facility] busPIRone (BUSPAR) tablet 10 mg 11-27 16:15: 00 Yes 10mg 10 mg, Oral, TID, First dose on 11/27/22 at 1015, Until Discontinu ed, Routine [facility] aspirin chewable tablet 81 mg 11-27 16:15: 00 Yes 81mg 81 mg, Oral, DAILY, First dose on 11/27/22 at 1015, Until Discontinu ed, Routine [facility] foLIC acid (FOLATE) tablet 1 mg 11-27 15:00: 00 Yes 1mg 1 mg, Oral, DAILY, First dose on Tue11/27/22 at 0900, Until Discontinu ed, Routine [facility] rivaroxaban (XARELTO) tablet 20 mg 11-27 15:00: 00 Yes 20mg 20 mg, Oral, DAILY, First dose on Tue11/27/22 at 0900, Until Discontinu ed, Routine [facility] omeprazole (PRILOSEC) capsule 40 mg 11-27 15:00: 00 Yes 40mg 40 mg, Oral, DAILY, First dose on Tue11/27/22 at 0900, Until Discontinu ed [facility] predniSONE (DELTASONE) tablet 40 mg 11-27 15:00: 00 12-02 13:59 :00 No 40mg 40 mg, Oral, DAILY, 5 doses, First dose on Tue11/27/22 at 0900, Last dose on Tue12/01/22 at 0900, Routine [facility] carvediloL (COREG) tablet 25 mg 11-27 14:00: 00 Yes 25mg 25 mg, Oral, BID MEALS, First dose on 11/27/22 at 0800, Until Discontinu ed, Routine [facility] levalbutero l (XOPENEX) nebulizer solution 0.31 mg 11-27 14:00: 00 11-28 12:33 :58 No .31mg 0.31 mg, Inhalation , TID, First dose on Tue11/27/22 at 0800, Until Discontinu ed, Routine [facility] ipratropium (ATROVENT) 0.02 % nebulizer solution 0.5 mg 11-27 14:00: 00 11-27 18:48 :56 No .5mg 0.5 mg, Inhalation , QID, First dose on Tue11/27/22 at 0800, Until Discontinu ed, Routine [facility] thiamine (VITAMIN B1) tablet 100 mg 11-27 08:30: 00 Yes 100mg 100 mg, Oral, DAILY, First dose (after last modificati on) on Tue11/27/22 at 0230, Until Discontinu ed, Routine [facility] LORazepam (ATIVAN) injection 1 mg 11-27 08:16: 19 Yes 1mg 1 mg, Slow IV Push, Q4HPRN, Starting on Tue11/27/22 at 0216, Until Discontinu ed, Routine, Agitation, Seizures, withdrawl [facility] levalbutero l (XOPENEX) nebulizer solution 1.25 mg 11-19 14:00: 00 Yes 1.25mg 1.25 mg, Inhalation , TID, First dose on Tue11/19/22 at 0800, Until Discontinu ed, Routine [facility] ipratropium (ATROVENT) 0.02 % nebulizer solution 0.5 mg 11-19 09:30: 00 11-19 08:47 :00 No .5mg 0.5 mg, Inhalation , ONCE, 1 dose, On Tue11/19/22 at 0330, Routine [facility] levalbutero l (XOPENEX) nebulizer solution 1.25 mg 11-19 02:00: 00 11-19 01:21 :00 No 1.25mg 1.25 mg, Inhalation , ONCE, 1 dose, On [place] 11/18/22 at 2000, Routine [facility] thiamine 100 mg tablet 2022-0 224 00:00: 00 12-13 04:59 :00 No [id number] 100mg Take 1 tablet by mouth in the morning for 30 days. [facility] thiamine 100 mg tablet 2022-0 2-24 00:00: 00 12-13 04:59 :00 No [id number] 100mg Take 1 tablet by mouth in the morning for 30 days. [facility] mg tablet 2022-0 224 00:00: 00 12-13 04:59 :00 No [id number] 100mg Take 1 tablet by mouth in the morning for 30 days. [facility] 100 mg tablet 2022-0 224 00:00: 00 12-13 04:59 :00 No [id number] 100mg Take 1 tablet by mouth in the morning for 30 days. [facility] 100 mg tablet 0 224 00:00: 00 12-13 04:59 :00 No [id number] 100mg Take 1 tablet by mouth in the morning for 30 days. [facility] thiamine 100 mg tablet 0 24 00:00: 00 11-28 00:00 :00 No [id number] 100mg Take 1 tablet by mouth in the morning for 30 days. [facility] thiamine (VITAMIN B1) tablet 100 mg 11-11 15:00: 00 Yes 100mg 100 mg, Oral, DAILY, First dose on [place] 11/11/22 at 0900, Until Discontinu ed, Routine [facility] omeprazole 40 mg capsule 11-11 13:41: 29 Yes 40mg Take 40 mg by mouth daily. [facility] carvediloL 25 mg tablet 11-11 13:41: 29 Yes 25mg Take 25 mg by mouth 2 (two) times daily with meals. [facility] busPIRone 30 mg tablet 11-11 13:41: 29 Yes 30mg Take 30 mg by mouth 2 (two) times daily. [facility] benazepriL 10 mg tablet 0 11-11 13:41: 29 Yes 10mg Take 10 mg by mouth daily. [facility] hydroCHLORO thiazide 25 mg tablet 0 11-11 13:41: 29 Yes 25mg Take 25 mg by mouth daily. [facility] omeprazole 40 mg capsule 11-11 13:41: 29 Yes 40mg Take 40 mg by mouth daily. [facility] carvediloL 25 mg tablet 0 11-11 13:41: 29 Yes 25mg Take 25 mg by mouth 2 (two) times daily with meals. [facility] busPIRone 30 mg tablet 11-11 13:41: 29 Yes 30mg Take 30 mg by mouth 2 (two) times daily. [facility] benazepriL 10 mg tablet 11-11 13:41: 29 Yes 10mg Take 10 mg by mouth daily. [facility] hydroCHLORO thiazide 25 mg tablet 11-11 13:41: 29 Yes 25mg Take 25 mg by mouth daily. [facility] omeprazole 40 mg capsule 11-11 13:41: 29 Yes 40mg Take 40 mg by mouth daily. [facility] carvediloL 25 mg tablet 11-11 13:41: 29 Yes 25mg Take 25 mg by mouth 2 (two) times daily with meals. [facility] busPIRone 30 mg tablet 11-11 13:41: 29 Yes 30mg Take 30 mg by mouth 2 (two) times daily. [facility] benazepriL 10 mg tablet 0 11-11 13:41: 29 Yes 10mg Take 10 mg by mouth daily. [facility] hydroCHLORO thiazide 25 mg tablet 11-11 13:41: 29 Yes 25mg Take 25 mg by mouth daily. [facility] omeprazole 40 mg capsule 11-11 13:41: 29 Yes 40mg Take 40 mg by mouth daily. [facility] carvediloL 25 mg tablet 11-11 13:41: 29 Yes 25mg Take 25 mg by mouth 2 (two) times daily with meals. [facility] busPIRone 30 mg tablet 11-11 13:41: 29 Yes 30mg Take 30 mg by mouth 2 (two) times daily. [facility] benazepriL 10 mg tablet 11-11 13:41: 29 Yes 10mg Take 10 mg by mouth daily. [facility] hydroCHLORO thiazide 25 mg tablet 11-11 13:41: 29 Yes 25mg Take 25 mg by mouth daily. [facility] omeprazole 40 mg capsule 11-11 13:41: 29 Yes 40mg Take 40 mg by mouth daily. [facility] carvediloL 25 mg tablet 11-11 13:41: 29 Yes 25mg Take 25 mg by mouth 2 (two) times daily with meals. [facility] busPIRone 30 mg tablet 11-11 13:41: 29 Yes 30mg Take 30 mg by mouth 2 (two) times daily. [facility] benazepriL 10 mg tablet 11-11 13:41: 29 Yes 10mg Take 10 mg by mouth daily. [facility] hydroCHLORO thiazide 25 mg tablet 11-11 13:41: 29 Yes 25mg Take 25 mg by mouth daily. [facility] foLIC acid (FOLATE) tablet 1 mg 11-11 00:15: 00 11-11 00:26 :00 No 1mg 1 mg, Oral, ONCE, 1 dose, On Tue11/10/22 at 1815, Routine [facility] benzocaine- menthoL lozenge 11-11 00:00: 00 Yes [id number] 1{lozen ge} Take 1 Lozenge by mouth every 4 (four) hours as needed for Sore throat. [facility] budesonide- formoteroL 80-4.5 mcg/actuati on inhaler 11-11 00:00: 00 Yes [id number] 2{puff} Inhale 2 Puffs in the morning and 2 Puffs in the evening. [facility] benzocaine- menthoL lozenge 11-11 00:00: 00 Yes [id number] 1{lozen ge} Take 1 Lozenge by mouth every 4 (four) hours as needed for Sore throat. [facility] budesonide- formoteroL 80-4.5 mcg/actuati on inhaler 11-11 00:00: 00 Yes [id number] 2{puff} Inhale 2 Puffs in the morning and 2 Puffs in the evening. [facility] benzocaine- menthoL lozenge 11-11 00:00: 00 Yes [id number] 1{lozen ge} Take 1 Lozenge by mouth every 4 (four) hours as needed for Sore throat. [facility] budesonide- formoteroL 80-4.5 mcg/actuati on inhaler 11-11 00:00: 00 Yes [id number] 2{puff} Inhale 2 Puffs in the morning and 2 Puffs in the evening. [facility] benzocaine- menthoL lozenge 11-11 00:00: 00 Yes [id number] 1{lozen ge} Take 1 Lozenge by mouth every 4 (four) hours as needed for Sore throat. [facility] budesonide- formoteroL 80-4.5 mcg/actuati on inhaler 11-11 00:00: 00 Yes [id number] 2{puff} Inhale 2 Puffs in the morning and 2 Puffs in the evening. [facility] benzocaine- menthoL lozenge 11-11 00:00: 00 Yes [id number] 1{lozen ge} Take 1 Lozenge by mouth every 4 (four) hours as needed for Sore throat. [facility] budesonide- formoteroL 80-4.5 mcg/actuati on inhaler 11-11 00:00: 00 Yes [id number] 2{puff} Inhale 2 Puffs in the morning and 2 Puffs in the evening. [facility] benzocaine- menthoL lozenge 11-11 00:00: 00 11-28 00:00 :00 No [id number] 1{lozen ge} Take 1 Lozenge by mouth every 4 (four) hours as needed for Sore throat. [facility] budesonide- formoteroL 80-4.5 mcg/actuati on inhaler 11-11 00:00: 00 11-28 00:00 :00 No [id number] 2{puff} Inhale 2 Puffs in the morning and 2 Puffs in the evening. [facility] sodium chloride 1 gram tablet 11-11 00:00: 00 11-22 05:59 :00 No [id number] 1g Take 1 tablet by mouth in the morning and 1 tablet at noon and 1 tablet in the evening. Take with meals. Do all this for 10 days. [facility] sodium chloride 1 gram tablet 11-11 00:00: 00 11-22 05:59 :00 No [id number] 1g Take 1 tablet by mouth in the morning and 1 tablet at noon and 1 tablet in the evening. Take with meals. Do all this for 10 days. [facility] sodium chloride 1 gram tablet 11-11 00:00: 00 11-22 05:59 :00 No [id number] 1g Take 1 tablet by mouth in the morning and 1 tablet at noon and 1 tablet in the evening. Take with meals. Do all this for 10 days. [facility] sodium chloride 1 gram tablet 11-11 00:00: 00 11-22 05:59 :00 No [id number] 1g Take 1 tablet by mouth in the morning and 1 tablet at noon and 1 tablet in the evening. Take with meals. Do all this for 10 days. [facility] levoFLOXaci n 750 mg tablet 11-11 00:00: 00 11-17 05:59 :00 No [id number] 750mg Take 1 tablet by mouth every 24 (twenty-fo ur) hours for 5 days. [facility] levoFLOXaci n 750 mg tablet 11-11 00:00: 00 11-17 05:59 :00 No [id number] 750mg Take 1 tablet by mouth every 24 (twenty-fo ur) hours for 5 days. [facility] predniSONE 20 mg tablet 11-11 00:00: 00 11-15 05:59 :00 No [id number] 40mg Take 2 tablets by mouth in the morning for 3 days. [facility] predniSONE 20 mg tablet 11-11 00:00: 00 11-15 05:59 :00 No [id number] 40mg Take 2 tablets by mouth in the morning for 3 days. [facility] sodium chloride tablet 1 g 11-10 23:15: 00 Yes 1g 1 g, Oral, TID MEALS, First dose on Tue11/10/22 at 1715, Until Discontinu ed, Routine [facility] benzocaine- menthoL (CEPACOL SORE THROAT (JACINTO-MEN)) lozenge 1 Lozenge 11-10 20:49: 25 Yes 1{lozen ge} 1 Lozenge, Oral, Q4HPRN, Starting on Tue11/10/22 at 1449, Until Discontinu ed, Routine, Sore throat [facility] budesonide- formoteroL (SYMBICORT) 80-4.5 mcg/actuati on inhaler 2 Puff 11-10 17:30: 00 Yes 2{puff} 2 Puff, Inhalation , BID, First dose on Tue11/10/22 at 1130, Until Discontinu ed, Routine [facility] omeprazole (PRILOSEC) capsule 40 mg 11-10 15:00: 00 Yes 40mg 40 mg, Oral, DAILY, First dose on Tue11/10/22 at 0900, Until Discontinu ed [facility] rivaroxaban (XARELTO) tablet 20 mg 11-10 15:00: 00 Yes 20mg 20 mg, Oral, DAILY, First dose on Tue11/10/22 at 0900, Until Discontinu ed, [facility] 81 mg 11-10 15:00: 00 Yes 81mg 81 mg, Oral, DAILY, First dose on Tue11/10/22 at 0900, Until Discontinu ed, Routine [facility] methylPREDN ISolone sod succ (SOLU-MEDRO L (PF)) injection 40 mg 11-10 15:00: 00 11-14 14:59 :00 No 40mg 40 mg, Intravenou s, DAILY, 4 doses, First dose on Tue11/10/22 at 0900, Last dose on Tue11/13/22 at 0900, 1 mL [facility] NaCl 0.9% (NS) IV infusion 1,000 mL 11-10 09:00: 00 Yes 1000mL at 100 mL/hr, IV Infusion, CONTINUOUS , Starting on Tue11/10/22 at 0300, Until Discontinu ed, Routine [facility] levoFLOXaci n in D5W (LEVAQUIN) 750 mg/150 [...]
D uration of therapy: 5 days [facility] busPIRone (BUSPAR) tablet 30 mg 11-10 02:00: 00 Yes 30mg 30 mg, Oral, BID, First dose on Tue11/09/22 at 2000, Until Discontinu ed, Routine [facility] carvediloL (COREG) tablet 25 mg 11-09 23:00: 00 Yes 25mg 25 mg, Oral, BID MEALS, First dose on Tue11/09/22 at 1700, Until Discontinu ed, Routine [facility] ipratropium (ATROVENT) 0.02 % nebulizer solution 0.5 mg 11-09 22:00: 00 Yes .5mg 0.5 mg, Inhalation , Q4H, First dose on Tue11/09/22 at 1600, Until Discontinu ed, Routine [facility] albuterol (PROVENTIL) 2.5 mg /3 mL (0.083 %) nebulizer solution 2.5 mg 11-09 22:00: 00 Yes 2.5mg 2.5 mg, Inhalation , Q4H, First dose on Tue11/09/22 at 1600, Until Discontinu ed, Routine [facility] NaCl 0.9% (NS) bolus infusion 500 mL 11-09 20:15: 00 11-09 21:30 :21 No 500mL at 999 mL/hr, 500 mL, IV Infusion, ONCE, 1 dose, On Tue11/09/22 at 1415, STAT [facility] ondansetron (ZOFRAN (PF)) injection 4 mg 11-09 20:04: 17 Yes 4mg 4 mg, Slow IV Push, Q6HPRN, Starting on Tue11/09/22 at 1404, Until Discontinu ed, Routine, Nausea and Vomiting (N/V) [facility] acetaminoph en (TYLENOL) tablet 650 mg 11-09 20:04: 07 Yes 650mg 650 mg, Oral, Q6HPRN, Starting on Tue11/09/22 at 1404, Until Discontinu ed, Routine, Pain (scale 1-3), Temp > 38 C [facility] albuterol (PROVENTIL) 2.5 mg /3 mL (0.083 %) nebulizer solution 5 mg 11-09 14:00: 00 11-09 14:05 :00 No 5mg 5 mg, Inhalation , ONCE, 1 dose, On Tue11/09/22 at 0800, STAT [facility] albuterol (PROVENTIL) 2.5 mg /3 mL (0.083 %) nebulizer solution 10 mg 11-09 11:00: 00 11-09 11:04 :00 No 10mg 10 mg, Inhalation , ONCE, 1 dose, On Tue11/09/22 at 0500, STAT [facility] ipratropium (ATROVENT) 0.02 % nebulizer solution 0.5 mg 11-09 09:00: 00 11-09 08:59 :00 No .5mg 0.5 mg, Inhalation , ONCE, 1 dose, On Tue11/09/22 at 0300, [facility] albuterol (PROVENTIL) 2.5 mg /3 mL (0.083 %) nebulizer solution 2.5 mg 11-09 09:00: 00 11-09 08:59 :00 No 2.5mg 2.5 mg, Inhalation , ONCE, 1 dose, On Tue11/09/22 at 0300, STAT [facility] magnesium sulfate in water 2 gram/50 mL (4 %) infusion 2 g 11-09 08:30: 00 11-09 08:22 :00 No 2g 2 g, IV Piggyback, Administer over 60 Minutes, ONCE, 1 dose, On Tue11/09/22 at 0230, Routine [facility] methylPREDN ISolone sodium succinate (SOLU-MEDRO L) injection 125 mg 11-09 07:45: 00 11-09 07:41 :00 No 125mg 125 mg, Intravenou s, ONCE, 1 dose, On Tue11/09/22 at 0145, [facility] ipratropium (ATROVENT) 0.02 % nebulizer solution 0.5 mg 11-09 07:45: 00 11-09 07:40 :00 No .5mg 0.5 mg, Inhalation , ONCE, 1 dose, On Tue11/09/22 at 0145, [facility] albuterol (PROVENTIL) 2.5 mg /3 mL (0.083 %) nebulizer solution 2.5 mg 11-09 07:45: 00 11-09 07:40 :00 No 2.5mg 2.5 mg, Inhalation , ONCE, 1 dose, On Tue11/09/22 at 0145, STAT [facility] cephALEXin (KEFLEX) 500 mg capsule 05-22 00:00: 00 Yes [id number] 500mg Take 1 capsule by mouth 4 (four) times daily. [facility] cephALEXin (KEFLEX) 500 mg capsule 05-22 00:00: 00 Yes [id number] 500mg Take 1 capsule by mouth 4 (four) times daily. [facility] cephALEXin (KEFLEX) 500 mg capsule 05-22 00:00: 00 11-11 00:00 :00 No [id number] 500mg Take 1 capsule by mouth 4 (four) times daily. [facility] cefTRIAXone (ROCEPHIN) 1,000 mg in NaCl 0.9% (NS) 50 mL MINI-BAG 12-12 19:00: 00 12-12 18:23 :00 No 1000mg 1,000 mg, IV Piggyback, ONCE, 1 dose, Tue12/12/20 at 1400, 50 mL
Reas on for Anti-Infec tive: Empiric Therapy for Suspected Infection< br>Empiric Therapy Site: Urine
D uration of therapy: 72 hours [facility] carvediloL 25 mg tablet 12-12 18:38: 04 Yes 25mg Take 25 mg by mouth 2 (two) times daily with meals. [facility] busPIRone 30 mg tablet 12-12 18:38: 04 Yes 30mg Take 30 mg by mouth 2 (two) times daily. [facility] benazepriL 10 mg tablet 12-12 18:38: 04 Yes 10mg Take 10 mg by mouth daily. [facility] hydroCHLORO thiazide 25 mg tablet 12-12 18:38: 04 Yes 25mg Take 25 mg by mouth daily. [facility] carvediloL 25 mg tablet 12-12 18:38: 04 Yes 25mg Take 25 mg by mouth 2 (two) times daily with meals. [facility] busPIRone 30 mg tablet 12-12 18:38: 04 Yes 30mg Take 30 mg by mouth 2 (two) times daily. [facility] benazepriL 10 mg tablet 12-12 18:38: 04 Yes 10mg Take 10 mg by mouth daily. [facility] hydroCHLORO thiazide 25 mg tablet 12-12 18:38: 04 Yes 25mg Take 25 mg by mouth daily. [facility] carvediloL 25 mg tablet 12-12 18:38: 04 Yes 25mg Take 25 mg by mouth 2 (two) times daily with meals. [facility] busPIRone 30 mg tablet 12-12 18:38: 04 Yes 30mg Take 30 mg by mouth 2 (two) times daily. [facility] benazepriL 10 mg tablet 12-12 18:38: 04 Yes 10mg Take 10 mg by mouth daily. [facility] hydroCHLORO thiazide 25 mg tablet 12-12 18:38: 04 Yes 25mg Take 25 mg by mouth daily. [facility] carvediloL 25 mg tablet 12-12 18:38: 04 Yes 25mg Take 25 mg by mouth 2 (two) times daily with meals. [facility] busPIRone 30 mg tablet 12-12 18:38: 04 Yes 30mg Take 30 mg by mouth 2 (two) times daily. [facility] benazepriL 10 mg tablet 12-12 18:38: 04 Yes 10mg Take 10 mg by mouth daily. [facility] hydroCHLORO thiazide 25 mg tablet 12-12 18:38: 04 Yes 25mg Take 25 mg by mouth daily. [facility] carvediloL 25 mg tablet 12-12 18:38: 04 Yes 25mg Take 25 mg by mouth 2 (two) times daily with meals. [facility] busPIRone 30 mg tablet 12-12 18:38: 04 Yes 30mg Take 30 mg by mouth 2 (two) times daily. [facility] benazepriL 10 mg tablet 12-12 18:38: 04 Yes 10mg Take 10 mg by mouth daily. [facility] hydroCHLORO thiazide 25 mg tablet 12-12 18:38: 04 Yes 25mg Take 25 mg by mouth daily. [facility] carvediloL 25 mg tablet 12-12 18:38: 04 Yes 25mg Take 25 mg by mouth 2 (two) times daily with meals. [facility] busPIRone 30 mg tablet 12-12 18:38: 04 Yes 30mg Take 30 mg by mouth 2 (two) times daily. [facility] benazepriL 10 mg tablet 12-12 18:38: 04 Yes 10mg Take 10 mg by mouth daily. [facility] hydroCHLORO thiazide 25 mg tablet 12-12 18:38: 04 Yes 25mg Take 25 mg by mouth daily. [facility] carvediloL 25 mg tablet 12-12 18:38: 04 Yes 25mg Take 25 mg by mouth 2 (two) times daily with meals. [facility] busPIRone 30 mg tablet 12-12 18:38: 04 Yes 30mg Take 30 mg by mouth 2 (two) times daily. [facility] benazepriL 10 mg tablet 12-12 18:38: 04 Yes 10mg Take 10 mg by mouth daily. [facility] hydroCHLORO thiazide 25 mg tablet 12-12 18:38: 04 Yes 25mg Take 25 mg by mouth daily. [facility] carvediloL 25 mg tablet 12-12 18:38: 04 Yes 25mg Take 25 mg by mouth 2 (two) times daily with meals. [facility] busPIRone 30 mg tablet 12-12 18:38: 04 Yes 30mg Take 30 mg by mouth 2 (two) times daily. [facility] benazepriL 10 mg tablet 12-12 18:38: 04 Yes 10mg Take 10 mg by mouth daily. [facility] hydroCHLORO thiazide 25 mg tablet 12-12 18:38: 04 Yes 25mg Take 25 mg by mouth daily. [facility] carvediloL 25 mg tablet 12-12 18:38: 04 Yes 25mg Take 25 mg by mouth 2 (two) times daily with meals. [facility] busPIRone 30 mg tablet 12-12 18:38: 04 Yes 30mg Take 30 mg by mouth 2 (two) times daily. [facility] benazepriL 10 mg tablet 12-12 18:38: 04 Yes 10mg Take 10 mg by mouth daily. [facility] hydroCHLORO thiazide 25 mg tablet 12-12 18:38: 04 Yes 25mg Take 25 mg by mouth daily. [facility] carvediloL 25 mg tablet 12-12 18:38: 04 Yes 25mg Take 25 mg by mouth 2 (two) times daily with meals. [facility] busPIRone 30 mg tablet 12-12 18:38: 04 Yes 30mg Take 30 mg by mouth 2 (two) times daily. [facility] benazepriL 10 mg tablet 12-12 18:38: 04 Yes 10mg Take 10 mg by mouth daily. [facility] hydroCHLORO thiazide 25 mg tablet 12-12 18:38: 04 Yes 25mg Take 25 mg by mouth daily. [facility] carvediloL 25 mg tablet 12-12 18:38: 04 Yes 25mg Take 25 mg by mouth 2 (two) times daily with meals. [facility] busPIRone 30 mg tablet 12-12 18:38: 04 Yes 30mg Take 30 mg by mouth 2 (two) times daily. [facility] benazepriL 10 mg tablet 12-12 18:38: 04 Yes 10mg Take 10 mg by mouth daily. [facility] hydroCHLORO thiazide 25 mg tablet 12-12 18:38: 04 Yes 25mg Take 25 mg by mouth daily. [facility] carvediloL 25 mg tablet 12-12 18:38: 04 Yes 25mg Take 25 mg by mouth 2 (two) times daily with meals. [facility] busPIRone 30 mg tablet 12-12 18:38: 04 Yes 30mg Take 30 mg by mouth 2 (two) times daily. [facility] benazepriL 10 mg tablet 12-12 18:38: 04 Yes 10mg Take 10 mg by mouth daily. [facility] hydroCHLORO thiazide 25 mg tablet 12-12 18:38: 04 Yes 25mg Take 25 mg by mouth daily. [facility] carvediloL 25 mg tablet 12-12 18:38: 04 Yes 25mg Take 25 mg by mouth 2 (two) times daily with meals. [facility] busPIRone 30 mg tablet 12-12 18:38: 04 Yes 30mg Take 30 mg by mouth 2 (two) times daily. [facility] benazepriL 10 mg tablet 12-12 18:38: 04 Yes 10mg Take 10 mg by mouth daily. [facility] hydroCHLORO thiazide 25 mg tablet 12-12 18:38: 04 Yes 25mg Take 25 mg by mouth daily. [facility] carvediloL 25 mg tablet 12-12 18:38: 04 Yes 25mg Take 25 mg by mouth 2 (two) times daily with meals. [facility] busPIRone 30 mg tablet 12-12 18:38: 04 Yes 30mg Take 30 mg by mouth 2 (two) times daily. [facility] benazepriL 10 mg tablet 12-12 18:38: 04 Yes 10mg Take 10 mg by mouth daily. [facility] hydroCHLORO thiazide 25 mg tablet 12-12 18:38: 04 Yes 25mg Take 25 mg by mouth daily. [facility] carvediloL 25 mg tablet 12-12 18:38: 04 Yes 25mg Take 25 mg by mouth 2 (two) times daily with meals. [facility] busPIRone 30 mg tablet 12-12 18:38: 04 Yes 30mg Take 30 mg by mouth 2 (two) times daily. [facility] benazepriL 10 mg tablet 12-12 18:38: 04 Yes 10mg Take 10 mg by mouth daily. [facility] hydroCHLORO thiazide 25 mg tablet 12-12 18:38: 04 Yes 25mg Take 25 mg by mouth daily. [facility] iohexol (OMNIPAQUE 350 BULK-150 mL) injection 120 mL 12-12 17:30: 00 12-12 17:21 :00 No [id number] 120mL 120 mL, Intravenou s, ONCE, 1 dose, Tue12/12/20 at 1230, Routine [facility] aspirin 81 mg EC tablet 12-12 16:57: 40 12-12 00:00 :00 No 81mg Take 81 mg by mouth daily. [facility] varenicline (CHANTIX) 1 mg tablet 12-12 16:57: 18 12-12 00:00 :00 No 1mg Take 1 mg by mouth 2 (two) times daily. [facility] predniSONE 20 mg tablet 12-12 16:57: 12 12-12 00:00 :00 No 20mg Take 20 mg by mouth daily. [facility] fluticasone -umeclidin- vilanter (TRELEGY ELLIPTA) 100-62.5-25 mcg DsDv 12-12 16:56: 46 12-12 00:00 :00 No 1{puff} Inhale 1 Puff daily. [facility] cefpodoxime 100 mg tablet 12-12 00:00: 00 Yes [id number] 100mg Take 1 tablet by mouth 2 (two) times daily. [facility] cefpodoxime 100 mg tablet 2020-0 12-12 00:00: 00 Yes [id number] 100mg Take 1 tablet by mouth 2 (two) times daily. [facility] cefpodoxime 100 mg tablet 2020-0 12-12 00:00: 00 Yes [id number] 100mg Take 1 tablet by mouth 2 (two) times daily. [facility] cefpodoxime 100 mg tablet 2020-0 12-12 00:00: 00 Yes [id number] 100mg Take 1 tablet by mouth 2 (two) times daily. [facility] cefpodoxime 100 mg tablet 2020-0 12-12 00:00: 00 Yes [id number] 100mg Take 1 tablet by mouth 2 (two) times daily. [facility] cefpodoxime 100 mg tablet 2020-0 12-12 00:00: 00 Yes [id number] 100mg Take 1 tablet by mouth 2 (two) times daily. [facility] cefpodoxime 100 mg tablet 2020-0 12-12 00:00: 00 Yes [id number] 100mg Take 1 tablet by mouth 2 (two) times daily. [facility] cefpodoxime 100 mg tablet 2020-0 12-12 00:00: 00 Yes [id number] 100mg Take 1 tablet by mouth 2 (two) times daily. [facility] cefpodoxime 100 mg tablet 2020-0 12-12 00:00: 00 Yes [id number] 100mg Take 1 tablet by mouth 2 (two) times daily. [facility] cefpodoxime 100 mg tablet 2020-0 12-12 00:00: 00 Yes [id number] 100mg Take 1 tablet by mouth 2 (two) times daily. [facility] cefpodoxime 100 mg tablet 2020-0 12-12 00:00: 00 Yes [id number] 100mg Take 1 tablet by mouth 2 (two) times daily. [facility] cefpodoxime 100 mg tablet 2020-0 12-12 00:00: 00 Yes [id number] 100mg Take 1 tablet by mouth 2 (two) times daily. [facility] cefpodoxime 100 mg tablet 20212-12 00:00: 00 Yes [id number] 100mg Take 1 tablet by mouth 2 (two) times daily. [facility] cefpodoxime 100 mg tablet 12-12 00:00: 00 Yes [id number] 100mg Take 1 tablet by mouth 2 (two) times daily. [facility] cefpodoxime 100 mg tablet 12-12 00:00: 00 Yes [id number] 100mg Take 1 tablet by mouth 2 (two) times daily. [facility] cefpodoxime 100 mg tablet 12-12 00:00: 00 11-11 00:00 :00 No [id number] 100mg Take 1 tablet by mouth 2 (two) times daily. [facility] cefpodoxime 100 mg tablet 12-12 00:00: 00 12-12 00:00 :00 No [id number] 100mg Take 1 tablet by mouth 2 (two) times daily for 7 days. [facility] XARELTO 15 mg tablet 10-16 00:00: 00 Yes [facility] XARELTO 15 mg tablet 0 10-16 00:00: 00 Yes [facility] XARELTO 15 mg tablet 10-16 00:00: 00 Yes [facility] XARELTO 15 mg tablet 10-16 00:00: 00 Yes [facility] XARELTO 15 mg tablet 10-16 00:00: 00 Yes [facility] XARELTO 15 mg tablet 0 10-16 00:00: 00 Yes [facility] XARELTO 15 mg tablet 0 10-16 00:00: 00 Yes [facility] XARELTO 15 mg tablet 0 10-16 00:00: 00 Yes [facility] XARELTO 15 mg tablet 0 10-16 00:00: 00 Yes [facility] XARELTO 15 mg tablet 0 10-16 00:00: 00 Yes [facility] XARELTO 15 mg tablet 10-16 00:00: 00 Yes [facility] XARELTO 15 mg tablet 0 10-16 00:00: 00 Yes [facility] XARELTO 15 mg tablet 10-16 00:00: 00 Yes [facility] XARELTO 15 mg tablet 10-16 00:00: 00 Yes [facility] XARELTO 15 mg tablet 10-16 00:00: 00 Yes [facility] XARELTO 15 mg tablet 0 10-16 00:00: 00 Yes [facility] XARELTO 15 mg tablet 10-16 00:00: 00 Yes [facility] XARELTO 15 mg tablet 10-16 00:00: 00 Yes [facility] XARELTO 15 mg tablet 10-16 00:00: 00 Yes [facility] XARELTO 15 mg tablet 10-16 00:00: 00 Yes [facility] XARELTO 15 mg tablet 10-16 00:00: 00 Yes [facility] XARELTO 15 mg tablet 10-16 00:00: 00 Yes [facility] XARELTO 15 mg tablet 10-16 00:00: 00 Yes [facility] XARELTO 15 mg tablet 10-16 00:00: 00 11-28 00:00 :00 No [facility] omeprazole 40 mg capsule 2018-09 00:11: 42 Yes 40mg Take 40 mg by mouth daily. [facility] omeprazole 40 mg capsule 2018-09 00:11: 42 Yes 40mg Take 40 mg by mouth daily. [facility] varenicline (CHANTIX) 1 mg tablet 2018-09 00:11: 42 Yes 1mg Take 1 mg by mouth 2 (two) times daily. [facility] predniSONE 20 mg tablet 2018-09 00:11: 42 Yes 20mg Take 20 mg by mouth daily. [facility] omeprazole 40 mg capsule 2018-09 00:11: 42 Yes 40mg Take 40 mg by mouth daily. [facility] fluticasone -umeclidin- vilanter (TRELEGY ELLIPTA) 100-62.5-25 mcg DsDv 2018-09 00:11: 42 Yes 1{puff} Inhale 1 Puff daily. [facility] aspirin 81 mg EC tablet 2018-09 00:11: 42 Yes 81mg Take 81 mg by mouth daily. [facility] varenicline (CHANTIX) 1 mg tablet 2018-09 00:11: 42 Yes 1mg Take 1 mg by mouth 2 (two) times daily. [facility] predniSONE 20 mg tablet 2018-09 00:11: 42 Yes 20mg Take 20 mg by mouth daily. [facility] omeprazole 40 mg capsule 2018-09 00:11: 42 Yes 40mg Take 40 mg by mouth daily. [facility] fluticasone -umeclidin- vilanter (TRELEGY ELLIPTA) 100-62.5-25 mcg DsDv 2018-09 00:11: 42 Yes 1{puff} Inhale 1 Puff daily. [facility] aspirin 81 mg EC tablet 2018-09 00:11: 42 Yes 81mg Take 81 mg by mouth daily. [facility] varenicline (CHANTIX) 1 mg tablet 2018-09 00:11: 42 Yes 1mg Take 1 mg by mouth 2 (two) times daily. [facility] predniSONE 20 mg tablet 2018-09 00:11: 42 Yes 20mg Take 20 mg by mouth daily. [facility] omeprazole 40 mg capsule 2018-09 00:11: 42 Yes 40mg Take 40 mg by mouth daily. [facility] fluticasone -umeclidin- vilanter (TRELEGY ELLIPTA) 100-62.5-25 mcg DsDv 2018-09 00:11: 42 Yes 1{puff} Inhale 1 Puff daily. [facility] aspirin 81 mg EC tablet 2018-09 00:11: 42 Yes 81mg Take 81 mg by mouth daily. [facility] varenicline (CHANTIX) 1 mg tablet 2018-09 00:11: 42 Yes 1mg Take 1 mg by mouth 2 (two) times daily. [facility] predniSONE 20 mg tablet 2018-09 00:11: 42 Yes 20mg Take 20 mg by mouth daily. [facility] omeprazole 40 mg capsule 2018-09 00:11: 42 Yes 40mg Take 40 mg by mouth daily. [facility] fluticasone -umeclidin- vilanter (TRELEGY ELLIPTA) 100-62.5-25 mcg DsDv 2018-09 00:11: 42 Yes 1{puff} Inhale 1 Puff daily. [facility] aspirin 81 mg EC tablet 2018-09 00:11: 42 Yes 81mg Take 81 mg by mouth daily. [facility] varenicline (CHANTIX) 1 mg tablet 2018-09 00:11: 42 Yes 1mg Take 1 mg by mouth 2 (two) times daily. [facility] predniSONE 20 mg tablet 2018-09 00:11: 42 Yes 20mg Take 20 mg by mouth daily. [facility] omeprazole 40 mg capsule 2018-09 00:11: 42 Yes 40mg Take 40 mg by mouth daily. [facility] fluticasone -umeclidin- vilanter (TRELEGY ELLIPTA) 100-62.5-25 mcg DsDv 2018-09 00:11: 42 Yes 1{puff} Inhale 1 Puff daily. [facility] aspirin 81 mg EC tablet 2018-09 00:11: 42 Yes 81mg Take 81 mg by mouth daily. [facility] varenicline (CHANTIX) 1 mg tablet 2018-09 00:11: 42 Yes 1mg Take 1 mg by mouth 2 (two) times daily. [facility] predniSONE 20 mg tablet 2018-09 00:11: 42 Yes 20mg Take 20 mg by mouth daily. [facility] omeprazole 40 mg capsule 2018-09 00:11: 42 Yes 40mg Take 40 mg by mouth daily. [facility] fluticasone -umeclidin- vilanter (TRELEGY ELLIPTA) 100-62.5-25 mcg DsDv 2018-09 00:11: 42 Yes 1{puff} Inhale 1 Puff daily. [facility] aspirin 81 mg EC tablet 2018-09 00:11: 42 Yes 81mg Take 81 mg by mouth daily. [facility] omeprazole 40 mg capsule 2018-09 00:11: 42 Yes 40mg Take 40 mg by mouth daily. [facility] omeprazole 40 mg capsule 2018-09 00:11: 42 Yes 40mg Take 40 mg by mouth daily. [facility] omeprazole 40 mg capsule 2018-09 00:11: 42 Yes 40mg Take 40 mg by mouth daily. [facility] omeprazole 40 mg capsule 2018-09 00:11: 42 Yes 40mg Take 40 mg by mouth daily. [facility] omeprazole 40 mg capsule 2018-09 00:11: 42 Yes 40mg Take 40 mg by mouth daily. [facility] omeprazole 40 mg capsule 2018-09 00:11: 42 Yes 40mg Take 40 mg by mouth daily. [facility] omeprazole 40 mg capsule 2018-09 00:11: 42 Yes 40mg Take 40 mg by mouth daily. [facility] omeprazole 40 mg capsule 2018-09 00:11: 42 Yes 40mg Take 40 mg by mouth daily. [facility] omeprazole 40 mg capsule 2018-09 00:11: 42 Yes 40mg Take 40 mg by mouth daily. [facility] omeprazole 40 mg capsule 2018-09 00:11: 42 Yes 40mg Take 40 mg by mouth daily. [facility] omeprazole 40 mg capsule 2018-09 00:11: 42 Yes 40mg Take 40 mg by mouth daily. [facility] omeprazole 40 mg capsule 2018-09 00:11: 42 Yes 40mg Take 40 mg by mouth daily. [facility] omeprazole 40 mg capsule 2018-09 00:11: 42 Yes 40mg Take 40 mg by mouth daily. [facility] KCL 20 mEq tablet 2018-09 00:00: 00 Yes [id number] 40meq Take 2 tablets by mouth daily. [facility] KCL 20 mEq tablet 2018-09 00:00: 00 Yes [id number] 40meq Take 2 tablets by mouth daily. [facility] atorvastati n 20 mg tablet 2018-09 00:00: 00 Yes [id number] 20mg Take 1 tablet by mouth at bedtime. [facility] metoprolol succinate XL 50 mg 24 hr tablet 2018-09 00:00: 00 Yes [id number] 50mg Take 1 tablet by mouth 2 (two) times daily. [facility] furosemide 40 mg tablet 2018-09 00:00: 00 Yes [id number] 40mg Take 1 tablet by mouth every morning and evening. [facility] KCL 20 mEq tablet 2018-09 00:00: 00 Yes [id number] 40meq Take 2 tablets by mouth daily. [facility] atorvastati n 20 mg tablet 2018-09 00:00: 00 Yes [id number] 20mg Take 1 tablet by mouth at bedtime. [facility] metoprolol succinate XL 50 mg 24 hr tablet 2018-09 00:00: 00 Yes [id number] 50mg Take 1 tablet by mouth 2 (two) times daily. [facility] furosemide 40 mg tablet 2018-09 00:00: 00 Yes [id number] 40mg Take 1 tablet by mouth every morning and evening. [facility] KCL 20 mEq tablet 2018-09 00:00: 00 Yes [id number] 40meq Take 2 tablets by mouth daily. [facility] atorvastati n 20 mg tablet 2018-09 00:00: 00 Yes [id number] 20mg Take 1 tablet by mouth at bedtime. [facility] metoprolol succinate XL 50 mg 24 hr tablet 2018-09 00:00: 00 Yes [id number] 50mg Take 1 tablet by mouth 2 (two) times daily. [facility] furosemide 40 mg tablet 2018-09 00:00: 00 Yes [id number] 40mg Take 1 tablet by mouth every morning and evening. [facility] KCL 20 mEq tablet 2018-09 00:00: 00 Yes [id number] 40meq Take 2 tablets by mouth daily. [facility] atorvastati n 20 mg tablet 2018-09 00:00: 00 Yes [id number] 20mg Take 1 tablet by mouth at bedtime. [facility] metoprolol succinate XL 50 mg 24 hr tablet 2018-09 00:00: 00 Yes [id number] 50mg Take 1 tablet by mouth 2 (two) times daily. [facility] furosemide 40 mg tablet 2018-09 00:00: 00 Yes [id number] 40mg Take 1 tablet by mouth every morning and evening. [facility] KCL 20 mEq tablet 2018-09 00:00: 00 Yes [id number] 40meq Take 2 tablets by mouth daily. [facility] atorvastati n 20 mg tablet 2018-09 00:00: 00 Yes [id number] 20mg Take 1 tablet by mouth at bedtime. [facility] metoprolol succinate XL 50 mg 24 hr tablet 2018-09 00:00: 00 Yes [id number] 50mg Take 1 tablet by mouth 2 (two) times daily. [facility] furosemide 40 mg tablet 2018-09 00:00: 00 Yes [id number] 40mg Take 1 tablet by mouth every morning and evening. [facility] KCL 20 mEq tablet 2018-09 00:00: 00 Yes [id number] 40meq Take 2 tablets by mouth daily. [facility] atorvastati n 20 mg tablet 2018-09 00:00: 00 Yes [id number] 20mg Take 1 tablet by mouth at bedtime. [facility] metoprolol succinate XL 50 mg 24 hr tablet 2018-09 00:00: 00 Yes [id number] 50mg Take 1 tablet by mouth 2 (two) times daily. [facility] furosemide 40 mg tablet 2018-09 00:00: 00 Yes [id number] 40mg Take 1 tablet by mouth every morning and evening. [facility] KCL 20 mEq tablet 2018-09 00:00: 00 Yes [id number] 40meq Take 2 tablets by mouth daily. [facility] KCL 20 mEq tablet 2018-09 00:00: 00 Yes [id number] 40meq Take 2 tablets by mouth daily. [facility] KCL 20 mEq tablet 2018-09 00:00: 00 Yes [id number] 40meq Take 2 tablets by mouth daily. [facility] KCL 20 mEq tablet 2018-09 00:00: 00 Yes [id number] 40meq Take 2 tablets by mouth daily. [facility] KCL 20 mEq tablet 2018-09 00:00: 00 Yes [id number] 40meq Take 2 tablets by mouth daily. [facility] KCL 20 mEq tablet 2018-09 00:00: 00 Yes [id number] 40meq Take 2 tablets by mouth daily. [facility] KCL 20 mEq tablet 2018-09 00:00: 00 Yes [id number] 40meq Take 2 tablets by mouth daily. [facility] KCL 20 mEq tablet 2018-09 00:00: 00 Yes [id number] 40meq Take 2 tablets by mouth daily. [facility] KCL 20 mEq tablet 2018-09 00:00: 00 Yes [id number] 40meq Take 2 tablets by mouth daily. [facility] KCL 20 mEq tablet 2018-09 00:00: 00 Yes [id number] 40meq Take 2 tablets by mouth daily. [facility] KCL 20 mEq tablet 2018-09 00:00: 00 Yes [id number] 40meq Take 2 tablets by mouth daily. [facility] KCL 20 mEq tablet 2018-09 00:00: 00 Yes [id number] 40meq Take 2 tablets by mouth daily. [facility] KCL 20 mEq tablet 2018-09 00:00: 00 Yes [id number] 40meq Take 2 tablets by mouth daily. [facility] KCL 20 mEq tablet 2018-09 00:00: 00 Yes [id number] 40meq Take 2 tablets by mouth daily. [facility] KCL 20 mEq tablet 2018-09 00:00: 00 Yes [id number] 40meq Take 2 tablets by mouth daily. [facility] KCL 20 mEq tablet 2018-09 00:00: 00 Yes [id number] 40meq Take 2 tablets by mouth daily. [facility] KCL 20 mEq tablet 2018-09 00:00: 00 Yes [id number] 40meq Take 2 tablets by mouth daily. [facility] KCL 20 mEq tablet 2018-09 00:00: 00 Yes [id number] 40meq Take 2 tablets by mouth daily. [facility] KCL 20 mEq tablet 2018-09 00:00: 00 Yes [id number] 40meq Take 2 tablets by mouth daily. [facility] KCL 20 mEq tablet 2018-09 00:00: 00 11-28 00:00 :00 No [id number] 40meq Take 2 tablets by mouth daily. [facility] atorvastati n 20 mg tablet 2018-09 00:00: 00 12-12 00:00 :00 No [id number] 20mg Take 1 tablet by mouth at bedtime. [facility] metoprolol succinate XL 50 mg 24 hr tablet 2018-09 00:00: 00 12-12 00:00 :00 No [id number] 50mg Take 1 tablet by mouth 2 (two) times daily. [facility] furosemide 40 mg tablet 2018-09 00:00: 00 12-12 00:00 :00 No [id number] 40mg Take 1 tablet by mouth every morning and evening. [facility] ipratropium -albuterol (DUONEB) 0.5 mg-3 mg(2.5 mg base)/3 mL nebulizer solution 3 mL 05-04 13:00: 00 Yes 3mL 3 mL, Inhalation , QID, First dose on Tue05/04/19 at 0800, Until Discontinu ed, Routine [facility] ibuprofen 600 mg tablet 02-16 00:00: 00 Yes [id number] 600mg Take 1 tablet by mouth every 8 (eight) hours as needed (PAIN). [facility] ibuprofen 600 mg tablet 02-16 00:00: 00 Yes [id number] 600mg Take 1 tablet by mouth every 8 (eight) hours as needed (pain). [facility] ibuprofen 600 mg tablet 02-16 00:00: 00 05-03 00:00 :00 No [id number] 600mg Take 1 tablet by mouth every 8 (eight) hours as needed (PAIN). [facility] ibuprofen 600 mg tablet 02-16 00:00: 00 05-03 00:00 :00 No [id number] 600mg Take 1 tablet by mouth every 8 (eight) hours as needed (pain). [facility] magnesium oxide (MAG-OX 400) 400 mg tablet 11-11 00:00: 00 Yes 400mg Take 1 Tab by mouth 3 (three) times daily. [facility] enalapril (VASOTEC) 2.5 mg tablet 11-11 00:00: 00 Yes [id number] 2.5mg Take 1 Tab by mouth 2 (two) times daily. [facility] pantoprazol e (PROTONIX) 40 mg EC tablet 11-11 00:00: 00 Yes 40mg Take 1 Tab by mouth daily. [facility] KCL (KLOR-CON M20) 20 mEq tablet 11-11 00:00: 00 Yes 20meq Take 1 Tab by mouth daily. [facility] furosemide (LASIX) 40 mg tablet 11-11 00:00: 00 Yes [id number] 40mg Take 1 Tab by mouth 2 (two) times daily. [facility] metoprolol succinate XL (TOPROL XL) 100 mg 24 hr tablet 11-11 00:00: 00 Yes 100mg Take 1 Tab by mouth daily. [facility] magnesium oxide (MAG-OX 400) 400 mg tablet 11-11 00:00: 00 05-03 00:00 :00 No 400mg Take 1 Tab by mouth 3 (three) times daily. [facility] enalapril (VASOTEC) 2.5 mg tablet 11-11 00:00: 00 05-03 00:00 :00 No [id number] 2.5mg Take 1 Tab by mouth 2 (two) times daily. [facility] pantoprazol e (PROTONIX) 40 mg EC tablet 11-11 00:00: 00 05-03 00:00 :00 No 40mg Take 1 Tab by mouth daily. [facility] KCL (KLOR-CON M20) 20 mEq tablet 11-11 00:00: 00 05-03 00:00 :00 No 20meq Take 1 Tab by mouth daily. [facility] furosemide (LASIX) 40 mg tablet 11-11 00:00: 00 05-03 00:00 :00 No [id number] 40mg Take 1 Tab by mouth 2 (two) times daily. [facility] metoprolol succinate XL (TOPROL XL) 100 mg 24 hr tablet 11-11 00:00: 00 05-03 00:00 :00 No 100mg Take 1 Tab by mouth daily. [facility] aspirin 81 mg chewable tablet 2013-09 00:00: 00 Yes 81mg Take 1 Tab by mouth daily. [facility] ipratropium (ATROVENT) 0.02 % nebulizer solution 2013-09 00:00: 00 Yes .5mg Inhale 2.5 mL 4 (four) times daily. [facility] levalbutero l (XOPENEX) 0.31 mg/3 mL nebulizer solution 2013-09 00:00: 00 Yes .31mg Inhale 0.31 mg 3 (three) times daily. [facility] aspirin 81 mg chewable tablet 2013-09 00:00: 00 Yes 81mg Take 1 Tab by mouth daily. [facility] ipratropium (ATROVENT) 0.02 % nebulizer solution 2013-09 00:00: 00 Yes .5mg Inhale 2.5 mL 4 (four) times daily. [facility] levalbutero l (XOPENEX) 0.31 mg/3 mL nebulizer solution 2013-09 00:00: 00 Yes .31mg Inhale 0.31 mg 3 (three) times daily. [facility] 2013-09 00:00: 00 Yes 81mg Take 1 Tab by mouth daily. [facility] (ATROVENT) 0.02 % nebulizer solution 2013-09 00:00: 00 Yes .5mg Inhale 2.5 mL 4 (four) times daily. [facility] levalbutero l (XOPENEX) 0.31 mg/3 mL nebulizer solution 2013-09 00:00: 00 Yes .31mg Inhale 0.31 mg 3 (three) times daily. [facility] aspirin 81 mg chewable tablet 2013-09 00:00: 00 Yes 81mg Take 1 Tab by mouth daily. [facility] (ATROVENT) 0.02 % nebulizer solution 2013-09 00:00: 00 Yes .5mg Inhale 2.5 mL 4 (four) times daily. [facility] levalbutero l (XOPENEX) 0.31 mg/3 mL nebulizer solution 2013-09 00:00: 00 Yes .31mg Inhale 0.31 mg 3 (three) times daily. [facility] 81 mg chewable tablet 2013-09 00:00: 00 Yes 81mg Take 1 Tab by mouth daily. [facility] ipratropium (ATROVENT) 0.02 % nebulizer solution 2013-09 00:00: 00 Yes .5mg Inhale 2.5 mL 4 (four) times daily. [facility] levalbutero l (XOPENEX) 0.31 mg/3 mL nebulizer solution 2013-09 00:00: 00 Yes .31mg Inhale 0.31 mg 3 (three) times daily. [facility] aspirin 81 mg chewable tablet 2013-09 00:00: 00 Yes 81mg Take 1 Tab by mouth daily. [facility] ipratropium (ATROVENT) 0.02 % nebulizer solution 2013-09 00:00: 00 Yes .5mg Inhale 2.5 mL 4 (four) times daily. [facility] levalbutero l (XOPENEX) 0.31 mg/3 mL nebulizer solution 2013-09 00:00: 00 Yes .31mg Inhale 0.31 mg 3 (three) times daily. [facility] aspirin 81 mg chewable tablet 2013-09 00:00: 00 Yes 81mg Take 1 Tab by mouth daily. [facility] ipratropium (ATROVENT) 0.02 % nebulizer solution 2013-09 00:00: 00 Yes .5mg Inhale 2.5 mL 4 (four) times daily. [facility] levalbutero l (XOPENEX) 0.31 mg/3 mL nebulizer solution 2013-09 00:00: 00 Yes .31mg Inhale 0.31 mg 3 (three) times daily. [facility] aspirin 81 mg chewable tablet 2013-09 00:00: 00 Yes 81mg Take 1 Tab by mouth daily. [facility] ipratropium (ATROVENT) 0.02 % nebulizer solution 2013-09 00:00: 00 Yes .5mg Inhale 2.5 mL 4 (four) times daily. [facility] levalbutero l (XOPENEX) 0.31 mg/3 mL nebulizer solution 2013-09 00:00: 00 Yes .31mg Inhale 0.31 mg 3 (three) times daily. [facility] aspirin 81 mg chewable tablet 2013-09 00:00: 00 Yes 81mg Take 1 Tab by mouth daily. [facility] ipratropium (ATROVENT) 0.02 % nebulizer solution 2013-09 00:00: 00 Yes .5mg Inhale 2.5 mL 4 (four) times daily. [facility] levalbutero l (XOPENEX) 0.31 mg/3 mL nebulizer solution 2013-09 00:00: 00 Yes .31mg Inhale 0.31 mg 3 (three) times daily. [facility] aspirin 81 mg chewable tablet 2013-09 00:00: 00 Yes 81mg Take 1 Tab by mouth daily. [facility] ipratropium (ATROVENT) 0.02 % nebulizer solution 2013-09 00:00: 00 Yes .5mg Inhale 2.5 mL 4 (four) times daily. [facility] levalbutero l (XOPENEX) 0.31 mg/3 mL nebulizer solution 2013-09 00:00: 00 Yes .31mg Inhale 0.31 mg 3 (three) times daily. [facility] aspirin 81 mg chewable tablet 2013-09 00:00: 00 Yes 81mg Take 1 Tab by mouth daily. [facility] ipratropium (ATROVENT) 0.02 % nebulizer solution 2013-09 00:00: 00 Yes .5mg Inhale 2.5 mL 4 (four) times daily. [facility] levalbutero l (XOPENEX) 0.31 mg/3 mL nebulizer solution 2013-09 00:00: 00 Yes .31mg Inhale 0.31 mg 3 (three) times daily. [facility] 81 mg chewable tablet 2013-09 00:00: 00 Yes 81mg Take 1 Tab by mouth daily. [facility] ipratropium (ATROVENT) 0.02 % nebulizer solution 2013-09 00:00: 00 Yes .5mg Inhale 2.5 mL 4 (four) times daily. [facility] levalbutero l (XOPENEX) 0.31 mg/3 mL nebulizer solution 2013-09 00:00: 00 Yes .31mg Inhale 0.31 mg 3 (three) times daily. [facility] aspirin 81 mg chewable tablet 2013-09 00:00: 00 Yes 81mg Take 1 Tab by mouth daily. [facility] ipratropium (ATROVENT) 0.02 % nebulizer solution 2013-09 00:00: 00 Yes .5mg Inhale 2.5 mL 4 (four) times daily. [facility] levalbutero l (XOPENEX) 0.31 mg/3 mL nebulizer solution 2013-09 00:00: 00 Yes .31mg Inhale 0.31 mg 3 (three) times daily. [facility] 81 mg chewable tablet 2013-09 00:00: 00 Yes 81mg Take 1 Tab by mouth daily. [facility] ipratropium (ATROVENT) 0.02 % nebulizer solution 2013-09 00:00: 00 Yes .5mg Inhale 2.5 mL 4 (four) times daily. [facility] levalbutero l (XOPENEX) 0.31 mg/3 mL nebulizer solution 2013-09 00:00: 00 Yes .31mg Inhale 0.31 mg 3 (three) times daily. [facility] aspirin 81 mg chewable tablet 2013-09 00:00: 00 Yes 81mg Take 1 Tab by mouth daily. [facility] ipratropium (ATROVENT) 0.02 % nebulizer solution 2013-09 00:00: 00 Yes .5mg Inhale 2.5 mL 4 (four) times daily. [facility] levalbutero l (XOPENEX) 0.31 mg/3 mL nebulizer solution 2013-09 00:00: 00 Yes .31mg Inhale 0.31 mg 3 (three) times daily. [facility] aspirin 81 mg chewable tablet 2013-09 00:00: 00 Yes 81mg Take 1 Tab by mouth daily. [facility] ipratropium (ATROVENT) 0.02 % nebulizer solution 2013-09 00:00: 00 Yes .5mg Inhale 2.5 mL 4 (four) times daily. [facility] levalbutero l (XOPENEX) 0.31 mg/3 mL nebulizer solution 2013-09 00:00: 00 Yes .31mg Inhale 0.31 mg 3 (three) times daily. [facility] aspirin 81 mg chewable tablet 2013-09 00:00: 00 Yes 81mg Take 1 Tab by mouth daily. [facility] ipratropium (ATROVENT) 0.02 % nebulizer solution 2013-09 00:00: 00 Yes .5mg Inhale 2.5 mL 4 (four) times daily. [facility] levalbutero l (XOPENEX) 0.31 mg/3 mL nebulizer solution 2013-09 00:00: 00 Yes .31mg Inhale 0.31 mg 3 (three) times daily. [facility] aspirin 81 mg chewable tablet 2013-09 00:00: 00 Yes 81mg Take 1 Tab by mouth daily. [facility] ipratropium (ATROVENT) 0.02 % nebulizer solution 2013-09 00:00: 00 Yes .5mg Inhale 2.5 mL 4 (four) times daily. [facility] levalbutero l (XOPENEX) 0.31 mg/3 mL nebulizer solution 2013-09 00:00: 00 Yes .31mg Inhale 0.31 mg 3 (three) times daily. [facility] aspirin 81 mg chewable tablet 2013-09 00:00: 00 Yes 81mg Take 1 Tab by mouth daily. [facility] ipratropium (ATROVENT) 0.02 % nebulizer solution 2013-09 00:00: 00 Yes .5mg Inhale 2.5 mL 4 (four) times daily. [facility] levalbutero l (XOPENEX) 0.31 mg/3 mL nebulizer solution 2013-09 00:00: 00 Yes .31mg Inhale 0.31 mg 3 (three) times daily. [facility] 81 mg chewable tablet 2013-09 00:00: 00 Yes 81mg Take 1 Tab by mouth daily. [facility] ipratropium (ATROVENT) 0.02 % nebulizer solution 2013-09 00:00: 00 Yes .5mg Inhale 2.5 mL 4 (four) times daily. [facility] levalbutero l (XOPENEX) 0.31 mg/3 mL nebulizer solution 2013-09 00:00: 00 Yes .31mg Inhale 0.31 mg 3 (three) times daily. [facility] 81 mg chewable tablet 2013-09 00:00: 00 Yes 81mg Take 1 Tab by mouth daily. [facility] ipratropium (ATROVENT) 0.02 % nebulizer solution 2013-09 00:00: 00 Yes .5mg Inhale 2.5 mL 4 (four) times daily. [facility] levalbutero l (XOPENEX) 0.31 mg/3 mL nebulizer solution 2013-09 00:00: 00 Yes .31mg Inhale 0.31 mg 3 (three) times daily. [facility] aspirin 81 mg chewable tablet 2013-09 00:00: 00 Yes 81mg Take 1 Tab by mouth daily. [facility] ipratropium (ATROVENT) 0.02 % nebulizer solution 2013-09 00:00: 00 Yes .5mg Inhale 2.5 mL 4 (four) times daily. [facility] levalbutero l (XOPENEX) 0.31 mg/3 mL nebulizer solution 2013-09 00:00: 00 Yes .31mg Inhale 0.31 mg 3 (three) times daily. [facility] 81 mg chewable tablet 2013-09 00:00: 00 Yes 81mg Take 1 Tab by mouth daily. [facility] ipratropium (ATROVENT) 0.02 % nebulizer solution 2013-09 00:00: 00 Yes .5mg Inhale 2.5 mL 4 (four) times daily. [facility] levalbutero l (XOPENEX) 0.31 mg/3 mL nebulizer solution 2013-09 00:00: 00 Yes .31mg Inhale 0.31 mg 3 (three) times daily. [facility] aspirin 81 mg chewable tablet 2013-09 00:00: 00 Yes 81mg Take 1 Tab by mouth daily. [facility] ipratropium (ATROVENT) 0.02 % nebulizer solution 2013-09 00:00: 00 Yes .5mg Inhale 2.5 mL 4 (four) times daily. [facility] levalbutero l (XOPENEX) 0.31 mg/3 mL nebulizer solution 2013-09 00:00: 00 Yes .31mg Inhale 0.31 mg 3 (three) times daily. [facility] aspirin 81 mg chewable tablet 2013-09 00:00: 00 Yes 81mg Take 1 Tab by mouth daily. [facility] ipratropium (ATROVENT) 0.02 % nebulizer solution 2013-09 00:00: 00 Yes .5mg Inhale 2.5 mL 4 (four) times daily. [facility] levalbutero l (XOPENEX) 0.31 mg/3 mL nebulizer solution 2013-09 00:00: 00 Yes .31mg Inhale 0.31 mg 3 (three) times daily. [facility] aspirin 81 mg chewable tablet 2013-09 00:00: 00 Yes 81mg Take 1 Tab by mouth daily. [facility] ipratropium (ATROVENT) 0.02 % nebulizer solution 2013-09 00:00: 00 Yes .5mg Inhale 2.5 mL 4 (four) times daily. [facility] levalbutero l (XOPENEX) 0.31 mg/3 mL nebulizer solution 2013-09 00:00: 00 Yes .31mg Inhale 0.31 mg 3 (three) times daily. [facility] aspirin 81 mg chewable tablet 2013-09 00:00: 00 Yes 81mg Take 1 Tab by mouth daily. [facility] ipratropium (ATROVENT) 0.02 % nebulizer solution 2013-09 00:00: 00 Yes .5mg Inhale 2.5 mL 4 (four) times daily. [facility] levalbutero l (XOPENEX) 0.31 mg/3 mL nebulizer solution 2013-09 00:00: 00 Yes .31mg Inhale 0.31 mg 3 (three) times daily. [facility] aspirin 81 mg chewable tablet 2013-09 00:00: 00 Yes 81mg Take 1 Tab by mouth daily. [facility] ipratropium (ATROVENT) 0.02 % nebulizer solution 2013-09 00:00: 00 Yes .5mg Inhale 2.5 mL 4 (four) times daily. [facility] levalbutero l (XOPENEX) 0.31 mg/3 mL nebulizer solution 2013-09 00:00: 00 Yes .31mg Inhale 0.31 mg 3 (three) times daily. [facility] aspirin 81 mg chewable tablet 2013-09 00:00: 00 11-28 00:00 :00 No 81mg Take 1 Tab by mouth daily. [facility] ipratropium (ATROVENT) 0.02 % nebulizer solution 2013-09 00:00: 00 11-28 00:00 :00 No .5mg Inhale 2.5 mL 4 (four) times daily. [facility] levalbutero l (XOPENEX) 0.31 mg/3 mL nebulizer solution 2013-09 00:00: 00 11-28 00:00 :00 No .31mg Inhale 0.31 mg 3 (three) times daily. [facility] Immunizations Ordered Immunization Name Filled Immunization Name Date Status Comments Source Pneumococcal 20 Conjugate, PCV20 (Prevnar 20) 2022-12-12 00:00:00 Completed [facility] Pneumococcal 20 Conjugate, PCV20 (Prevnar 20) 2022-12-12 00:00:00 Completed [facility] Pneumococcal 20 Conjugate, PCV20 (Prevnar 20) 2022-12-12 00:00:00 Completed [facility] Pneumococcal 20 Conjugate, PCV20 (Prevnar 20) 2022-12-12 00:00:00 Completed [facility] Pneumococcal 20 Conjugate, PCV20 (Prevnar 20) 2022-12-12 00:00:00 Completed [facility] Pneumococcal 20 Conjugate, PCV20 (Prevnar 20) 2022-12-12 00:00:00 Completed [facility] Pneumococcal 20 Conjugate, PCV20 (Prevnar 20) 2022-12-12 00:00:00 Completed [facility] Pneumococcal 20 Conjugate, PCV20 (Prevnar 20) 2022-12-12 00:00:00 Completed [facility] Pneumococcal 20 Conjugate, PCV20 (Prevnar 20) 2022-12-12 00:00:00 Completed [facility] Pneumococcal 20 Conjugate, PCV20 (Prevnar 20) 2022-12-12 00:00:00 Completed [facility] Pneumococcal 20 Conjugate, PCV20 (Prevnar 20) 2022-12-12 00:00:00 Completed [facility] Pneumococcal 20 Conjugate, PCV20 (Prevnar 20) 2022-12-12 00:00:00 Completed [facility] Pneumococcal 20 Conjugate, PCV20 (Prevnar 20) 2022-12-12 00:00:00 Completed [facility] Pneumococcal 20 Conjugate, PCV20 (Prevnar 20) 2022-12-12 00:00:00 Completed [facility] Pneumococcal 20 Conjugate, PCV20 (Prevnar 20) 2022-12-12 00:00:00 Completed [facility] Pneumococcal 20 Conjugate, PCV20 (Prevnar 20) 2022-12-12 00:00:00 Completed [facility] Pneumococcal 20 Conjugate, PCV20 (Prevnar 20) 2022-12-12 00:00:00 Completed [facility] Pneumococcal 20 Conjugate, PCV20 (Prevnar 20) 2022-12-12 00:00:00 Completed [facility] Pneumococcal 20 Conjugate, PCV20 (Prevnar 20) 2022-12-12 00:00:00 Completed [facility] Pneumococcal 20 Conjugate, PCV20 (Prevnar 20) 2022-12-12 00:00:00 Completed [facility] Pneumococcal 20 Conjugate, PCV20 (Prevnar 20) 2022-12-12 00:00:00 Completed [facility] Pneumococcal 20 Conjugate, PCV20 (Prevnar 20) 2022-12-12 00:00:00 Completed [facility] Pneumococcal 20 Conjugate, PCV20 (Prevnar 20) 2022-12-12 00:00:00 Completed [facility] Pneumococcal 20 Conjugate, PCV20 (Prevnar 20) 2022-12-12 00:00:00 Completed [facility] Pneumococcal 20 Conjugate, PCV20 (Prevnar 20) 2022-12-12 00:00:00 Completed [facility] Pneumococcal 20 Conjugate, PCV20 (Prevnar 20) 2022-12-12 00:00:00 Completed [facility] Pneumococcal 20 Conjugate, PCV20 (Prevnar 20) 2022-12-12 00:00:00 Completed [facility] Pneumococcal 20 Conjugate, PCV20 (Prevnar 20) 2022-12-12 00:00:00 Completed [facility] Pneumococcal 20 Conjugate, PCV20 (Prevnar 20) 2022-12-12 00:00:00 Completed [facility] Pneumococcal 20 Conjugate, PCV20 (Prevnar 20) 2022-12-12 00:00:00 Completed [facility] Pneumococcal 20 Conjugate, PCV20 (Prevnar 20) 2022-12-12 00:00:00 Completed [facility] Pneumococcal 20 Conjugate, PCV20 (Prevnar 20) 2022-12-12 00:00:00 Completed [facility] Pneumococcal 20 Conjugate, PCV20 (Prevnar 20) 2022-12-12 00:00:00 Completed [facility] Pneumococcal 20 Conjugate, PCV20 (Prevnar 20) 2022-12-12 00:00:00 Completed [facility] Pneumococcal 20 Conjugate, PCV20 (Prevnar 20) 2022-12-12 00:00:00 Completed [facility] Pneumococcal 20 Conjugate, PCV20 (Prevnar 20) 2022-12-12 00:00:00 Completed [facility] SARS-COV-2 COVID-19 MODERNA 12+ YRS VACCINE 2020-11-23 00:00:00 Completed [facility] SARS-COV-2 COVID-19 MODERNA VACCINE 2020-11-23 00:00:00 Completed [facility] SARS-COV-2 COVID-19 MODERNA 12+ YRS VACCINE 2020-11-23 00:00:00 Completed [facility] SARS-COV-2 COVID-19 MODERNA 12+ YRS VACCINE 2020-11-23 00:00:00 Completed [facility] SARS-COV-2 COVID-19 MODERNA 12+ YRS VACCINE 2020-11-23 00:00:00 Completed [facility] SARS-COV-2 COVID-19 MODERNA 12+ YRS VACCINE 2020-11-23 00:00:00 Completed [facility] SARS-COV-2 COVID-19 MODERNA 12+ YRS VACCINE 2020-11-23 00:00:00 Completed [facility] SARS-COV-2 COVID-19 MODERNA VACCINE 2020-11-23 00:00:00 Completed [facility] SARS-COV-2 COVID-19 MODERNA 12+ YRS VACCINE 2020-11-23 00:00:00 Completed [facility] SARS-COV-2 COVID-19 MODERNA 12+ YRS VACCINE 2020-11-23 00:00:00 Completed [facility] SARS-COV-2 COVID-19 MODERNA 12+ YRS VACCINE 2020-11-23 00:00:00 Completed [facility] SARS-COV-2 COVID-19 MODERNA 12+ YRS VACCINE 2020-11-23 00:00:00 Completed [facility] SARS-COV-2 COVID-19 MODERNA 12+ YRS VACCINE 2020-11-23 00:00:00 Completed [facility] SARS-COV-2 COVID-19 MODERNA 12+ YRS VACCINE 2020-11-23 00:00:00 Completed [facility] SARS-COV-2 COVID-19 MODERNA VACCINE 2020-11-23 00:00:00 Completed [facility] SARS-COV-2 COVID-19 MODERNA 12+ YRS VACCINE 2020-11-23 00:00:00 Completed [facility] SARS-COV-2 COVID-19 MODERNA 12+ YRS VACCINE 2020-11-23 00:00:00 Completed [facility] SARS-COV-2 COVID-19 MODERNA 12+ YRS VACCINE 2020-11-23 00:00:00 Completed [facility] SARS-COV-2 COVID-19 MODERNA 12+ YRS VACCINE 2020-11-23 00:00:00 Completed [facility] SARS-COV-2 COVID-19 MODERNA 12+ YRS VACCINE 2020-11-23 00:00:00 Completed [facility] SARS-COV-2 COVID-19 MODERNA 12+ YRS VACCINE 2020-11-23 00:00:00 Completed [facility] SARS-COV-2 COVID-19 MODERNA 12+ YRS VACCINE 2020-11-23 00:00:00 Completed [facility] SARS-COV-2 COVID-19 MODERNA 12+ YRS VACCINE 2020-11-23 00:00:00 Completed [facility] SARS-COV-2 COVID-19 MODERNA 12+ YRS VACCINE 2020-11-23 00:00:00 Completed [facility] SARS-COV-2 COVID-19 MODERNA 12+ YRS VACCINE 2020-11-23 00:00:00 Completed [facility] SARS-COV-2 COVID-19 MODERNA 12+ YRS VACCINE 2020-11-23 00:00:00 Completed [facility] SARS-COV-2 COVID-19 MODERNA 12+ YRS VACCINE 2020-11-23 00:00:00 Completed [facility] SARS-COV-2 COVID-19 MODERNA 12+ YRS VACCINE 2020-11-23 00:00:00 Completed [facility] SARS-COV-2 COVID-19 MODERNA 12+ YRS VACCINE 2020-11-23 00:00:00 Completed [facility] SARS-COV-2 COVID-19 MODERNA 12+ YRS VACCINE 2020-11-23 00:00:00 Completed [facility] SARS-COV-2 COVID-19 MODERNA 12+ YRS VACCINE 2020-11-23 00:00:00 Completed [facility] SARS-COV-2 COVID-19 MODERNA 12+ YRS VACCINE 2020-11-23 00:00:00 Completed [facility] SARS-COV-2 COVID-19 MODERNA 12+ YRS VACCINE 2020-11-23 00:00:00 Completed [facility] SARS-COV-2 COVID-19 MODERNA 12+ YRS VACCINE 2020-11-23 00:00:00 Completed [facility] SARS-COV-2 COVID-19 MODERNA VACCINE 2020-11-23 00:00:00 Completed [facility] SARS-COV-2 COVID-19 MODERNA 12+ YRS VACCINE 2020-11-23 00:00:00 Completed [facility] SARS-COV-2 COVID-19 MODERNA 12+ YRS VACCINE 2020-11-23 00:00:00 Completed [facility] SARS-COV-2 COVID-19 MODERNA 12+ YRS VACCINE 2020-11-23 00:00:00 Completed [facility] SARS-COV-2 COVID-19 MODERNA 12+ YRS VACCINE 2020-11-23 00:00:00 Completed [facility] SARS-COV-2 COVID-19 MODERNA 12+ YRS VACCINE 2020-11-23 00:00:00 Completed [facility] SARS-COV-2 COVID-19 MODERNA VACCINE 2020-11-23 00:00:00 Completed [facility] SARS-COV-2 COVID-19 MODERNA 12+ YRS VACCINE 2020-11-23 00:00:00 Completed [facility] SARS-COV-2 COVID-19 MODERNA 12+ YRS VACCINE 2020-11-23 00:00:00 Completed [facility] SARS-COV-2 COVID-19 MODERNA 12+ YRS VACCINE 2020-11-23 00:00:00 Completed [facility] SARS-COV-2 COVID-19 MODERNA 12+ YRS VACCINE 2020-11-23 00:00:00 Completed [facility] SARS-COV-2 COVID-19 MODERNA 12+ YRS VACCINE 2020-11-23 00:00:00 [facility]pleted [facility] [facility] SARS-COV-2 COVID-19 MODERNA VACCINE 2020-11-23 00:00:00 Completed [facility] SARS-COV-2 COVID-19 MODERNA VACCINE 2020-11-23 00:00:00 Completed [facility] SARS-COV-2 COVID-19 MODERNA VACCINE 2020-11-23 00:00:00 Completed [facility] SARS-COV-2 COVID-19 MODERNA VACCINE 2020-11-23 00:00:00 Completed [facility] SARS-COV-2 COVID-19 MODERNA VACCINE 2020-11-23 00:00:00 Completed [facility] SARS-COV-2 COVID-19 MODERNA VACCINE 2020-11-23 00:00:00 Completed [facility] SARS-COV-2 COVID-19 MODERNA VACCINE 2020-11-23 00:00:00 Completed [facility] SARS-COV-2 COVID-19 MODERNA VACCINE 2020-11-23 00:00:00 Completed [facility] SARS-COV-2 COVID-19 MODERNA VACCINE 2020-11-23 00:00:00 Completed [facility] SARS-COV-2 COVID-19 MODERNA VACCINE 2020-11-23 00:00:00 Completed [facility] SARS-COV-2 COVID-19 MODERNA VACCINE 2020-11-23 00:00:00 Completed [facility] SARS-COV-2 COVID-19 MODERNA VACCINE 2020-11-23 00:00:00 Completed [facility] SARS-COV-2 COVID-19 MODERNA VACCINE 2020-11-23 00:00:00 Completed [facility] SARS-COV-2 COVID-19 MODERNA VACCINE 2020-11-23 00:00:00 Completed [facility] SARS-COV-2 COVID-19 MODERNA 12+ YRS VACCINE 2020-11-23 00:00:00 Completed [facility] SARS-COV-2 COVID-19 MODERNA 12+ YRS VACCINE 2020-11-23 00:00:00 Completed [facility] SARS-COV-2 COVID-19 MODERNA 12+ YRS VACCINE 2020-11-23 00:00:00 Completed [facility] SARS-COV-2 COVID-19 MODERNA 12+ YRS VACCINE 2020-11-23 00:00:00 Completed [facility] SARS-COV-2 COVID-19 MODERNA VACCINE 2020-11-23 00:00:00 Completed [facility] SARS-COV-2 COVID-19 MODERNA 12+ YRS VACCINE 2020-11-23 00:00:00 Completed [facility] SARS-COV-2 COVID-19 MODERNA 12+ YRS VACCINE 2020-11-23 00:00:00 Completed [facility] SARS-COV-2 COVID-19 MODERNA 12+ YRS VACCINE 2020-11-23 00:00:00 Completed [facility] SARS-COV-2 COVID-19 MODERNA VACCINE 2020-10-26 00:00:00 Completed [facility] SARS-COV-2 COVID-19 MODERNA 12+ YRS VACCINE 2020-10-26 00:00:00 Completed [facility] SARS-COV-2 COVID-19 MODERNA 12+ YRS VACCINE 2020-10-26 00:00:00 Completed [facility] SARS-COV-2 COVID-19 MODERNA 12+ YRS VACCINE 2020-10-26 00:00:00 Completed [facility] SARS-COV-2 COVID-19 MODERNA 12+ YRS VACCINE 2020-10-26 00:00:00 Completed [facility] SARS-COV-2 COVID-19 MODERNA 12+ YRS VACCINE 2020-10-26 00:00:00 Completed [facility] SARS-COV-2 COVID-19 MODERNA VACCINE 2020-10-26 00:00:00 Completed [facility] SARS-COV-2 COVID-19 MODERNA 12+ YRS VACCINE 2020-10-26 00:00:00 Completed [facility] SARS-COV-2 COVID-19 MODERNA 12+ YRS VACCINE 2020-10-26 00:00:00 Completed [facility] SARS-COV-2 COVID-19 MODERNA 12+ YRS VACCINE 2020-10-26 00:00:00 Completed [facility] SARS-COV-2 COVID-19 MODERNA 12+ YRS VACCINE 2020-10-26 00:00:00 Completed [facility] SARS-COV-2 COVID-19 MODERNA 12+ YRS VACCINE 2020-10-26 00:00:00 Completed [facility] SARS-COV-2 COVID-19 MODERNA 12+ YRS VACCINE 2020-10-26 00:00:00 Completed [facility] SARS-COV-2 COVID-19 MODERNA 12+ YRS VACCINE 2020-10-26 00:00:00 Completed [facility] SARS-COV-2 COVID-19 MODERNA VACCINE 2020-10-26 00:00:00 Completed [facility] SARS-COV-2 COVID-19 MODERNA 12+ YRS VACCINE 2020-10-26 00:00:00 Completed [facility] SARS-COV-2 COVID-19 MODERNA 12+ YRS VACCINE 2020-10-26 00:00:00 Completed [facility] SARS-COV-2 COVID-19 MODERNA 12+ YRS VACCINE 2020-10-26 00:00:00 Completed [facility] SARS-COV-2 COVID-19 MODERNA 12+ YRS VACCINE 2020-10-26 00:00:00 Completed [facility] SARS-COV-2 COVID-19 MODERNA 12+ YRS VACCINE 2020-10-26 00:00:00 Completed [facility] SARS-COV-2 COVID-19 MODERNA 12+ YRS VACCINE 2020-10-26 00:00:00 Completed [facility] SARS-COV-2 COVID-19 MODERNA 12+ YRS VACCINE 2020-10-26 00:00:00 Completed [facility] SARS-COV-2 COVID-19 MODERNA 12+ YRS VACCINE 2020-10-26 00:00:00 Completed [facility] SARS-COV-2 COVID-19 MODERNA 12+ YRS VACCINE 2020-10-26 00:00:00 Completed [facility] SARS-COV-2 COVID-19 MODERNA 12+ YRS VACCINE 2020-10-26 00:00:00 Completed [facility] SARS-COV-2 COVID-19 MODERNA 12+ YRS VACCINE 2020-10-26 00:00:00 Completed [facility] SARS-COV-2 COVID-19 MODERNA 12+ YRS VACCINE 2020-10-26 00:00:00 Completed [facility] SARS-COV-2 COVID-19 MODERNA 12+ YRS VACCINE 2020-10-26 00:00:00 Completed [facility] SARS-COV-2 COVID-19 MODERNA 12+ YRS VACCINE 2020-10-26 00:00:00 Completed [facility] SARS-COV-2 COVID-19 MODERNA 12+ YRS VACCINE 2020-10-26 00:00:00 Completed [facility] SARS-COV-2 COVID-19 MODERNA 12+ YRS VACCINE 2020-10-26 00:00:00 Completed [facility] SARS-COV-2 COVID-19 MODERNA 12+ YRS VACCINE 2020-10-26 00:00:00 Completed [facility] SARS-COV-2 COVID-19 MODERNA 12+ YRS VACCINE 2020-10-26 00:00:00 Completed [facility] SARS-COV-2 COVID-19 MODERNA 12+ YRS VACCINE 2020-10-26 00:00:00 Completed [facility] SARS-COV-2 COVID-19 MODERNA VACCINE 2020-10-26 00:00:00 Completed [facility] SARS-COV-2 COVID-19 MODERNA 12+ YRS VACCINE 2020-10-26 00:00:00 Completed [facility] SARS-COV-2 COVID-19 MODERNA 12+ YRS VACCINE 2020-10-26 00:00:00 Completed [facility] SARS-COV-2 COVID-19 MODERNA 12+ YRS VACCINE 2020-10-26 00:00:00 Completed [facility] SARS-COV-2 COVID-19 MODERNA 12+ YRS VACCINE 2020-10-26 00:00:00 Completed [facility] SARS-COV-2 COVID-19 MODERNA 12+ YRS VACCINE 2020-10-26 00:00:00 Completed [facility] SARS-COV-2 COVID-19 MODERNA VACCINE 2020-10-26 00:00:00 Completed [facility] SARS-COV-2 COVID-19 MODERNA 12+ YRS VACCINE 2020-10-26 00:00:00 Completed [facility] SARS-COV-2 COVID-19 MODERNA 12+ YRS VACCINE 2020-10-26 00:00:00 Completed [facility] SARS-COV-2 COVID-19 MODERNA 12+ YRS VACCINE 2020-10-26 00:00:00 Completed [facility] SARS-COV-2 COVID-19 MODERNA 12+ YRS VACCINE 2020-10-26 00:00:00 Completed [facility] SARS-COV-2 COVID-19 MODERNA 12+ YRS VACCINE 2020-10-26 00:00:00 Completed [facility] SARS-COV-2 COVID-19 MODERNA VACCINE 2020-10-26 00:00:00 Completed [facility] SARS-COV-2 COVID-19 MODERNA VACCINE 2020-10-26 00:00:00 Completed [facility] SARS-COV-2 COVID-19 MODERNA VACCINE 2020-10-26 00:00:00 Completed [facility] SARS-COV-2 COVID-19 MODERNA VACCINE 2020-10-26 00:00:00 Completed [facility] SARS-COV-2 COVID-19 MODERNA VACCINE 2020-10-26 00:00:00 Completed [facility] SARS-COV-2 COVID-19 MODERNA VACCINE 2020-10-26 00:00:00 Completed [facility] SARS-COV-2 COVID-19 MODERNA VACCINE 2020-10-26 00:00:00 Completed [facility] SARS-COV-2 COVID-19 MODERNA VACCINE 2020-10-26 00:00:00 Completed [facility] SARS-COV-2 COVID-19 MODERNA VACCINE 2020-10-26 00:00:00 Completed [facility] SARS-COV-2 COVID-19 MODERNA VACCINE 2020-10-26 00:00:00 Completed [facility] SARS-COV-2 COVID-19 MODERNA VACCINE 2020-10-26 00:00:00 Completed [facility] SARS-COV-2 COVID-19 MODERNA VACCINE 2020-10-26 00:00:00 Completed [facility] SARS-COV-2 COVID-19 MODERNA VACCINE 2020-10-26 00:00:00 Completed [facility] SARS-COV-2 COVID-19 MODERNA VACCINE 2020-10-26 00:00:00 Completed [facility] SARS-COV-2 COVID-19 MODERNA 12+ YRS VACCINE 2020-10-26 00:00:00 Completed [facility] SARS-COV-2 COVID-19 MODERNA 12+ YRS VACCINE 2020-10-26 00:00:00 Completed [facility] SARS-COV-2 COVID-19 MODERNA 12+ YRS VACCINE 2020-10-26 00:00:00 Completed [facility] SARS-COV-2 COVID-19 MODERNA 12+ YRS VACCINE 2020-10-26 00:00:00 Completed [facility] SARS-COV-2 COVID-19 MODERNA VACCINE 2020-10-26 00:00:00 Completed [facility] SARS-COV-2 COVID-19 MODERNA 12+ YRS VACCINE 2020-10-26 00:00:00 Completed [facility] SARS-COV-2 COVID-19 MODERNA 12+ YRS VACCINE 2020-10-26 00:00:00 Completed [facility] SARS-COV-2 COVID-19 MODERNA 12+ YRS VACCINE 2020-10-26 00:00:00 Completed [facility] Td 2019-02-16 00:00:00 Completed [facility] TD, NOS 2019-02-16 00:00:00 Completed [facility] TD, NOS 2019-02-16 00:00:00 Completed [facility] TD, NOS 2019-02-16 00:00:00 Completed [facility] TD, NOS 2019-02-16 00:00:00 Completed [facility] TD, NOS 2019-02-16 00:00:00 Completed [facility] Td 2019-02-16 00:00:00 Completed [facility] TD, NOS 2019-02-16 00:00:00 Completed [facility] TD, NOS 2019-02-16 00:00:00 Completed [facility] TD, NOS 2019-02-16 00:00:00 Completed [facility] TD, NOS 2019-02-16 00:00:00 Completed [facility] TD, NOS 2019-02-16 00:00:00 Completed [facility] TD, NOS 2019-02-16 00:00:00 Completed [facility] TD, NOS 2019-02-16 00:00:00 Completed [facility] Td 2019-02-16 00:00:00 Completed [facility] TD, NOS 2019-02-16 00:00:00 Completed [facility] TD, NOS 2019-02-16 00:00:00 Completed [facility] TD, NOS 2019-02-16 00:00:00 Completed [facility] TD, NOS 2019-02-16 00:00:00 Completed [facility] Td 2019-02-16 00:00:00 Completed [facility] TD, NOS 2019-02-16 00:00:00 Completed [facility] TD, NOS 2019-02-16 00:00:00 Completed [facility] TD, NOS 2019-02-16 00:00:00 Completed [facility] TD, NOS 2019-02-16 00:00:00 Completed [facility] Td 2019-02-16 00:00:00 Completed [facility] TD, NOS 2019-02-16 00:00:00 Completed [facility] TD, NOS 2019-02-16 00:00:00 Completed [facility] TD, NOS 2019-02-16 00:00:00 Completed [facility] TD, NOS 2019-02-16 00:00:00 Completed [facility] TD, NOS 2019-02-16 00:00:00 Completed [facility] TD, NOS 2019-02-16 00:00:00 Completed [facility] TD, NOS 2019-02-16 00:00:00 Completed [facility] Td 2019-02-16 00:00:00 Completed [facility] TD, NOS 2019-02-16 00:00:00 Completed [facility] TD, NOS 2019-02-16 00:00:00 Completed [facility] TD, NOS 2019-02-16 00:00:00 Completed [facility] TD, NOS 2019-02-16 00:00:00 Completed [facility] Td 2019-02-16 00:00:00 Completed [facility] TD, NOS 2019-02-16 00:00:00 Completed [facility] TD, NOS 2019-02-16 00:00:00 Completed [facility] TD, NOS 2019-02-16 00:00:00 Completed [facility] TD, NOS 2019-02-16 00:00:00 Completed [facility] Td 2019-02-16 00:00:00 Completed [facility] TD, NOS 2019-02-16 00:00:00 Completed [facility] TD, NOS 2019-02-16 00:00:00 Completed [facility] TD, NOS 2019-02-16 00:00:00 Completed [facility] TD, NOS 2019-02-16 00:00:00 Completed [facility] TD, NOS 2019-02-16 00:00:00 Completed [facility] TD, NOS 2019-02-16 00:00:00 Completed [facility] Td 2019-02-16 00:00:00 Completed [facility] Td 2019-02-16 00:00:00 Completed [facility] Td 2019-02-16 00:00:00 Completed [facility] Td 2019-02-16 00:00:00 Completed [facility] Td 2019-02-16 00:00:00 Completed [facility] Td 2019-02-16 00:00:00 Completed [facility] Td 2019-02-16 00:00:00 Completed [facility] Td 2019-02-16 00:00:00 Completed [facility] Td 2019-02-16 00:00:00 Completed [facility] Td 2019-02-16 00:00:00 Completed [facility] Td 2019-02-16 00:00:00 Completed [facility] Td 2019-02-16 00:00:00 Completed [facility] Td 2019-02-16 00:00:00 Completed [facility] Td 2019-02-16 00:00:00 Completed [facility] TD, NOS 2019-02-16 00:00:00 Completed [facility] TD, NOS 2019-02-16 00:00:00 Completed [facility] TD, NOS 2019-02-16 00:00:00 Completed [facility] TD, NOS 2019-02-16 00:00:00 Completed [facility] Td 2019-02-16 00:00:00 Completed [facility] TD, NOS 2019-02-16 00:00:00 Completed [facility] TD, NOS 2019-02-16 00:00:00 Completed [facility] TD, NOS 2019-02-16 00:00:00 Completed [facility] Pneumococcal Polysaccharide, PPSV23 (PNEUMOVAX) 2014-09-05 00:00:00 Completed [facility] Influenza Virus Vaccine Quad IM 3+ YRS 2014-09-05 00:00:00 Completed [facility] Pneumococcal Polysaccharide, [id number] (PNEUMOVAX) 2014-09-05 00:00:00 Completed [facility] Influenza Virus Vaccine Quad IM 3+ YRS 2014-09-05 00:00:00 Completed [facility] Pneumococcal Polysaccharide, [id number] (PNEUMOVAX) 2014-09-05 00:00:00 Completed [facility] Influenza Virus Vaccine Quad IM 3+ YRS 2014-09-05 00:00:00 Completed [facility] Pneumococcal Polysaccharide, PPSV23 (PNEUMOVAX) 2014-09-05 00:00:00 Completed [facility] Influenza Virus Vaccine Quad IM 3+ YRS 2014-09-05 00:00:00 Completed [facility] Pneumococcal Polysaccharide, PPSV23 (PNEUMOVAX) 2014-09-05 00:00:00 Completed [facility] Influenza Virus Vaccine Quad IM 3+ YRS 2014-09-05 00:00:00 Completed [facility] Pneumococcal Polysaccharide, PPSV23 (PNEUMOVAX) 2014-09-05 00:00:00 Completed [facility] Influenza Virus Vaccine Quad IM 3+ YRS 2014-09-05 00:00:00 Completed [facility] Pneumococcal Polysaccharide, PPSV23 (PNEUMOVAX) 2014-09-05 00:00:00 Completed [facility] Influenza Virus Vaccine Quad IM 3+ YRS 2014-09-05 00:00:00 Completed [facility] Pneumococcal Polysaccharide, PPSV23 (PNEUMOVAX) 2014-09-05 00:00:00 Completed [facility] Influenza Virus Vaccine Quad IM 3+ YRS 2014-09-05 00:00:00 Completed [facility] Pneumococcal Polysaccharide, PPSV23 (PNEUMOVAX) 2014-09-05 00:00:00 Completed [facility] Influenza Virus Vaccine Quad IM 3+ YRS 2014-09-05 00:00:00 Completed [facility] Pneumococcal Polysaccharide, PPSV23 (PNEUMOVAX) 2014-09-05 00:00:00 Completed [facility] Influenza Virus Vaccine Quad IM 3+ YRS 2014-09-05 00:00:00 Completed [facility] Pneumococcal Polysaccharide, PPSV23 (PNEUMOVAX) 2014-09-05 00:00:00 Completed [facility] Influenza Virus Vaccine Quad IM 3+ YRS 2014-09-05 00:00:00 Completed [facility] Pneumococcal Polysaccharide, PPSV23 (PNEUMOVAX) 2014-09-05 00:00:00 Completed [facility] Influenza Virus Vaccine Quad IM 3+ YRS 2014-09-05 00:00:00 Completed [facility] Pneumococcal Polysaccharide, PPSV23 (PNEUMOVAX) 2014-09-05 00:00:00 Completed [facility] Influenza Virus Vaccine Quad IM 3+ YRS 2014-09-05 00:00:00 Completed [facility] Influenza Virus Vaccine Quad IM 3+ YRS 2014-09-05 00:00:00 Completed [facility] Pneumococcal Polysaccharide, PPSV23 (PNEUMOVAX) 2014-09-05 00:00:00 Completed [facility] Pneumococcal Polysaccharide, PPSV23 (PNEUMOVAX) 2014-09-05 00:00:00 Completed [facility] Influenza Virus Vaccine Quad IM 3+ YRS 2014-09-05 00:00:00 Completed [facility] Pneumococcal Polysaccharide, PPSV23 (PNEUMOVAX) 2014-09-05 00:00:00 Completed [facility] Influenza Virus Vaccine Quad IM 3+ YRS 2014-09-05 00:00:00 Completed [facility] Pneumococcal Polysaccharide, PPSV23 (PNEUMOVAX) 2014-09-05 00:00:00 Completed [facility] Influenza Virus Vaccine Quad IM 3+ YRS 2014-09-05 00:00:00 Completed [facility] Pneumococcal Polysaccharide, PPSV23 (PNEUMOVAX) 2014-09-05 00:00:00 Completed [facility] Influenza Virus Vaccine Quad IM 3+ YRS 2014-09-05 00:00:00 Completed [facility] Pneumococcal Polysaccharide, PPSV23 (PNEUMOVAX) 2014-09-05 00:00:00 Completed [facility] Influenza Virus Vaccine Quad IM 3+ YRS 2014-09-05 00:00:00 Completed [facility] Pneumococcal Polysaccharide, PPSV23 (PNEUMOVAX) 2014-09-05 00:00:00 Completed [facility] Influenza Virus Vaccine Quad IM 3+ YRS 2014-09-05 00:00:00 Completed [facility] Pneumococcal Polysaccharide, PPSV23 (PNEUMOVAX) 2014-09-05 00:00:00 Completed [facility] Influenza Virus Vaccine Quad IM 3+ YRS 2014-09-05 00:00:00 Completed [facility] Pneumococcal Polysaccharide, PPSV23 (PNEUMOVAX) 2014-09-05 00:00:00 Completed [facility] Influenza Virus Vaccine Quad IM 3+ YRS 2014-09-05 00:00:00 Completed [facility] Pneumococcal Polysaccharide, PPSV23 (PNEUMOVAX) 2014-09-05 00:00:00 Completed [facility] Influenza Virus Vaccine Quad IM 3+ YRS 2014-09-05 00:00:00 Completed [facility] Pneumococcal Polysaccharide, PPSV23 (PNEUMOVAX) 2014-09-05 00:00:00 Completed [facility] Influenza Virus Vaccine Quad IM 3+ YRS 2014-09-05 00:00:00 Completed [facility] Pneumococcal Polysaccharide, PPSV23 (PNEUMOVAX) 2014-09-05 00:00:00 Completed [facility] Influenza Virus Vaccine Quad IM 3+ YRS 2014-09-05 00:00:00 Completed [facility] Pneumococcal Polysaccharide, PPSV23 (PNEUMOVAX) 2014-09-05 00:00:00 Completed [facility] Influenza Virus Vaccine Quad IM 3+ YRS 2014-09-05 00:00:00 Completed [facility] Pneumococcal Polysaccharide, PPSV23 (PNEUMOVAX) 2014-09-05 00:00:00 Completed [facility] Influenza Virus Vaccine Quad IM 3+ YRS 2014-09-05 00:00:00 Completed [facility] Pneumococcal Polysaccharide, PPSV23 (PNEUMOVAX) 2014-09-05 00:00:00 Completed [facility] Influenza Virus Vaccine Quad IM 3+ YRS 2014-09-05 00:00:00 Completed [facility] Pneumococcal Polysaccharide, PPSV23 (PNEUMOVAX) 2014-09-05 00:00:00 Completed [facility] Influenza Virus Vaccine Quad IM 3+ YRS 2014-09-05 00:00:00 Completed [facility] Pneumococcal Polysaccharide, PPSV23 (PNEUMOVAX) 2014-09-05 00:00:00 Completed [facility] Influenza Virus Vaccine Quad IM 3+ YRS 2014-09-05 00:00:00 Completed [facility] Pneumococcal Polysaccharide, PPSV23 (PNEUMOVAX) 2014-09-05 00:00:00 Completed [facility] Influenza Virus Vaccine Quad IM 3+ YRS 2014-09-05 00:00:00 Completed [facility] Influenza Virus Vaccine Quad IM 3+ YRS 2014-09-05 00:00:00 Completed [facility] Pneumococcal Polysaccharide, PPSV23 (PNEUMOVAX) 2014-09-05 00:00:00 Completed [facility] Pneumococcal Polysaccharide, PPSV23 (PNEUMOVAX) 2014-09-05 00:00:00 Completed [facility] Influenza Virus Vaccine Quad IM 3+ YRS 2014-09-05 00:00:00 Completed [facility] Pneumococcal Polysaccharide, PPSV23 (PNEUMOVAX) 2014-09-05 00:00:00 Completed [facility] Influenza Virus Vaccine Quad IM 3+ YRS 2014-09-05 00:00:00 Completed [facility] Pneumococcal Polysaccharide, PPSV23 (PNEUMOVAX) 2014-09-05 00:00:00 Completed [facility] Influenza Virus Vaccine Quad IM 3+ YRS 2014-09-05 00:00:00 Completed [facility] Pneumococcal Polysaccharide, PPSV23 (PNEUMOVAX) 2014-09-05 00:00:00 Completed [facility] Influenza Virus Vaccine Quad IM 3+ YRS 2014-09-05 00:00:00 Completed [facility] Pneumococcal Polysaccharide, PPSV23 (PNEUMOVAX) 2014-09-05 00:00:00 Completed [facility] Influenza Virus Vaccine Quad IM 3+ YRS 2014-09-05 00:00:00 Completed [facility] Pneumococcal Polysaccharide, PPSV23 (PNEUMOVAX) 2014-09-05 00:00:00 Completed [facility] Influenza Virus Vaccine Quad IM 3+ YRS 2014-09-05 00:00:00 Completed [facility] Pneumococcal Polysaccharide, PPSV23 (PNEUMOVAX) 2014-09-05 00:00:00 Completed [facility] Influenza Virus Vaccine Quad IM 3+ YRS 2014-09-05 00:00:00 Completed [facility] Pneumococcal Polysaccharide, PPSV23 (PNEUMOVAX) 2014-09-05 00:00:00 Completed [facility] Influenza Virus Vaccine Quad IM 3+ YRS 2014-09-05 00:00:00 Completed [facility] Pneumococcal Polysaccharide, PPSV23 (PNEUMOVAX) 2014-09-05 00:00:00 Completed [facility] Influenza Virus Vaccine Quad IM 3+ YRS 2014-09-05 00:00:00 Completed [facility] Pneumococcal Polysaccharide, PPSV23 (PNEUMOVAX) 2014-09-05 00:00:00 Completed [facility] Influenza Virus Vaccine Quad IM 3+ YRS 2014-09-05 00:00:00 Completed [facility] Pneumococcal Polysaccharide, PPSV23 (PNEUMOVAX) 2014-09-05 00:00:00 Completed [facility] Influenza Virus Vaccine Quad IM 3+ YRS 2014-09-05 00:00:00 Completed [facility] Pneumococcal Polysaccharide, PPSV23 (PNEUMOVAX) 2014-09-05 00:00:00 Completed [facility] Influenza Virus Vaccine Quad IM 3+ YRS 2014-09-05 00:00:00 Completed [facility] Pneumococcal Polysaccharide, PPSV23 (PNEUMOVAX) 2014-09-05 00:00:00 Completed [facility] Influenza Virus Vaccine Quad IM 3+ YRS 2014-09-05 00:00:00 Completed [facility] Pneumococcal Polysaccharide, PPSV23 (PNEUMOVAX) 2014-09-05 00:00:00 Completed [facility] Influenza Virus Vaccine Quad IM 3+ YRS 2014-09-05 00:00:00 Completed [facility] Pneumococcal Polysaccharide, PPSV23 (PNEUMOVAX) 2014-09-05 00:00:00 Completed [facility] Influenza Virus Vaccine Quad IM 3+ YRS 2014-09-05 00:00:00 Completed [facility] Pneumococcal Polysaccharide, PPSV23 (PNEUMOVAX) 2014-09-05 00:00:00 Completed [facility] Influenza Virus Vaccine Quad IM 3+ YRS 2014-09-05 00:00:00 Completed [facility] Pneumococcal Polysaccharide, PPSV23 (PNEUMOVAX) 2014-09-05 00:00:00 Completed [facility] Influenza Virus Vaccine Quad IM 3+ YRS 2014-09-05 00:00:00 Completed [facility] Pneumococcal Polysaccharide, PPSV23 (PNEUMOVAX) 2014-09-05 00:00:00 Completed [facility] Influenza Virus Vaccine Quad IM 3+ YRS 2014-09-05 00:00:00 Completed [facility] Pneumococcal Polysaccharide, PPSV23 (PNEUMOVAX) 2014-09-05 00:00:00 Completed [facility] Influenza Virus Vaccine Quad IM 3+ YRS 2014-09-05 00:00:00 Completed [facility] Pneumococcal Polysaccharide, PPSV23 (PNEUMOVAX) 2014-09-05 00:00:00 Completed [facility] Influenza Virus Vaccine Quad IM 3+ YRS 2014-09-05 00:00:00 Completed [facility] Pneumococcal Polysaccharide, PPSV23 (PNEUMOVAX) 2014-09-05 00:00:00 Completed [facility] Influenza Virus Vaccine Quad IM 3+ YRS 2014-09-05 00:00:00 Completed [facility] Pneumococcal Polysaccharide, PPSV23 (PNEUMOVAX) 2014-09-05 00:00:00 Completed [facility] Influenza Virus Vaccine Quad IM 3+ YRS 2014-09-05 00:00:00 Completed [facility] Pneumococcal Polysaccharide, PPSV23 (PNEUMOVAX) 2014-09-05 00:00:00 Completed [facility] Influenza Virus Vaccine Quad IM 3+ YRS 2014-09-05 00:00:00 Completed [facility] Pneumococcal Polysaccharide, PPSV23 (PNEUMOVAX) 2014-09-05 00:00:00 Completed [facility] Influenza Virus Vaccine Quad IM 3+ YRS 2014-09-05 00:00:00 Completed [facility] Pneumococcal Polysaccharide, PPSV23 (PNEUMOVAX) 2014-09-05 00:00:00 Completed [facility] Influenza Virus Vaccine Quad IM 3+ YRS 2014-09-05 00:00:00 Completed [facility] Pneumococcal Polysaccharide, PPSV23 (PNEUMOVAX) 2014-09-05 00:00:00 Completed [facility] Influenza Virus Vaccine Quad IM 3+ YRS 2014-09-05 00:00:00 Completed [facility] Pneumococcal Polysaccharide, PPSV23 (PNEUMOVAX) 2014-09-05 00:00:00 Completed [facility] Influenza Virus Vaccine Quad IM 3+ YRS 2014-09-05 00:00:00 Completed [facility] Pneumococcal Polysaccharide, PPSV23 (PNEUMOVAX) 2014-09-05 00:00:00 Completed [facility] Influenza Virus Vaccine Quad IM 3+ YRS 2014-09-05 00:00:00 Completed [facility] Pneumococcal Polysaccharide, PPSV23 (PNEUMOVAX) 2014-09-05 00:00:00 Completed [facility] Influenza Virus Vaccine Quad IM 3+ YRS 2014-09-05 00:00:00 Completed [facility] Pneumococcal Polysaccharide, PPSV23 (PNEUMOVAX) 2014-09-05 00:00:00 Completed [facility] Influenza Virus Vaccine Quad IM 3+ YRS 2014-09-05 00:00:00 Completed [facility] Pneumococcal Polysaccharide, PPSV23 (PNEUMOVAX) 2014-09-05 00:00:00 Completed [facility] Influenza Virus Vaccine Quad IM 3+ YRS 2014-09-05 00:00:00 Completed [facility] Pneumococcal Polysaccharide, PPSV23 (PNEUMOVAX) 2014-09-05 00:00:00 Completed [facility] Influenza Virus Vaccine Quad IM 3+ YRS 2014-09-05 00:00:00 Completed [facility] Pneumococcal Polysaccharide, PPSV23 (PNEUMOVAX) 2014-09-05 00:00:00 Completed [facility] Influenza Virus Vaccine Quad IM 3+ YRS 2014-09-05 00:00:00 Completed [facility] Pneumococcal Polysaccharide, PPSV23 (PNEUMOVAX) 2014-09-05 00:00:00 Completed [facility] Influenza Virus Vaccine Quad IM 3+ YRS 2014-09-05 00:00:00 Completed [facility] Influenza Virus Vaccine Quad IM 3+ YRS 2014-09-05 00:00:00 Completed [facility] Pneumococcal Polysaccharide, PPSV23 (PNEUMOVAX) 2014-09-05 00:00:00 Completed [facility] Pneumococcal Polysaccharide, PPSV23 (PNEUMOVAX) 2014-09-05 00:00:00 Completed [facility] Influenza Virus Vaccine Quad IM 3+ YRS 2014-09-05 00:00:00 Completed [facility] Pneumococcal Polysaccharide, PPSV23 (PNEUMOVAX) 2014-09-05 00:00:00 Completed [facility] Influenza Virus Vaccine Quad IM 3+ YRS 2014-09-05 00:00:00 Completed [facility] Pneumococcal Polysaccharide, PPSV23 (PNEUMOVAX) 2014-09-05 00:00:00 Completed [facility] Influenza Virus Vaccine Quad IM 3+ YRS 2014-09-05 00:00:00 Completed [facility] Pneumococcal Polysaccharide, PPSV23 (PNEUMOVAX) 2014-09-05 00:00:00 Completed [facility] Influenza Virus Vaccine Quad IM 3+ YRS 2014-09-05 00:00:00 Completed [facility] Influenza Virus Vaccine Quad IM 3+ YRS Unknown Completed [facility] Pneumococcal Polysaccharide, PPSV23 (PNEUMOVAX) Unknown Completed [facility] TD, NOS Unknown Completed [facility] SARS-COV-2 COVID-19 MODERNA 12+ YRS VACCINE Unknown Completed [facility] SARS-COV-2 COVID-19 MODERNA 12+ YRS VACCINE Unknown Completed [facility] Pneumococcal 20 Conjugate, PCV20 (Prevnar 20) Unknown Completed [facility] Influenza Virus Vaccine Quad IM 3+ YRS Unknown Completed [facility] Pneumococcal Polysaccharide, PPSV23 (PNEUMOVAX) Unknown Completed [facility] TD, NOS Unknown Completed [facility] SARS-COV-2 COVID-19 MODERNA 12+ YRS VACCINE Unknown Completed [facility] SARS-COV-2 COVID-19 MODERNA 12+ YRS VACCINE Unknown Completed [facility] Pneumococcal 20 Conjugate, PCV20 (Prevnar 20) Unknown Completed [facility] Influenza Virus Vaccine Quad IM 3+ YRS Unknown Completed [facility] Pneumococcal Polysaccharide, PPSV23 (PNEUMOVAX) Unknown Completed [facility] TD, NOS Unknown Completed [facility] SARS-COV-2 COVID-19 MODERNA 12+ YRS VACCINE Unknown Completed [facility] SARS-COV-2 COVID-19 MODERNA 12+ YRS VACCINE Unknown Completed [facility] Pneumococcal 20 Conjugate, PCV20 (Prevnar 20) Unknown Completed [facility] Vital Signs Vital Name Observation Time Observation Value Comments S ource Systolic blood pressure 2023-04-19 15:37:00 126 mm[Hg] [facility] Diastolic blood pressure 2023-04-19 15:37:00 83 mm[Hg] [facility] Heart rate 2023-04-19 15:37:00 94 /min [facility] Respiratory rate 2023-04-19 15:35:00 18 /min [facility] Body height 2023-04-19 15:35:00 177.8 cm [facility] Body weight 2023-04-19 15:35:00 59.138 kg [facility] BMI 2023-04-19 15:35:00 18.71 kg/m2 [facility] Oxygen saturation in Arterial blood by Pulse oximetry 2023-04-19 15:35:00 94 /min [facility] Systolic blood pressure 2023-03-01 20:27:00 143 mm[Hg] [facility] Diastolic blood pressure 2023-03-01 20:27:00 87 mm[Hg] [facility] Heart rate 2023-03-01 20:27:00 99 /min [facility] Body height 2023-03-01 20:27:00 177.8 cm [facility] Body weight 2023-03-01 20:27:00 57.153 kg [facility] BMI 2023-03-01 20:27:00 18.08 kg/m2 [facility] Oxygen saturation in Arterial blood by Pulse oximetry 2023-03-01 20:27:00 99 /min [facility] Systolic blood pressure 2023-02-18 16:17:00 144 mm[Hg] [facility] Diastolic blood pressure 2023-02-18 16:17:00 68 mm[Hg] [facility] Heart rate 2023-02-18 16:17:00 55 /min [facility] Body temperature 2023-02-18 16:17:00 36.06 Tia [facility] Respiratory rate 2023-02-18 16:17:00 18 /min [facility] Oxygen saturation in Arterial blood by Pulse oximetry 2023-02-18 16:17:00 100 /min [facility] Body weight 2023-02-18 07:50:00 58.968 kg [facility] BMI 2023-02-18 07:50:00 18.65 kg/m2 [facility] Body height 2023-02-16 00:31:00 177.8 cm [facility] Oxygen saturation in Arterial blood by Pulse oximetry 2023-02-07 19:29:00 99 /min [facility] Systolic blood pressure 2023-02-07 19:27:00 103 mm[Hg] [facility] Diastolic blood pressure 2023-02-07 19:27:00 75 mm[Hg] [facility] Heart rate 2023-02-07 19:27:00 104 /min [facility] Body temperature 2023-02-07 19:27:00 36.39 Tia [facility] Respiratory rate 2023-02-07 19:27:00 22 /min [facility] Body weight 2023-02-07 19:27:00 72.576 kg [facility] BMI 2023-02-07 19:27:00 22.96 kg/m2 [facility] Heart rate 2023-02-05 20:17:00 85 /min [facility] Respiratory rate 2023-02-05 20:17:00 18 /min [facility] Oxygen saturation in Arterial blood by Pulse oximetry 2023-02-05 20:17:00 100 /min [facility] Systolic blood pressure 2023-02-05 19:53:35 98 mm[Hg] [facility] Diastolic blood pressure 2023-02-05 19:53:35 71 mm[Hg] [facility] Body temperature 2023-02-05 19:51:00 36.5 Tia [facility] Body height 2023-02-05 19:51:00 177.8 cm [facility] Body weight 2023-02-05 19:51:00 72.576 kg [facility] BMI 2023-02-05 19:51:00 22.96 kg/m2 [facility] Heart rate 2023-02-04 20:31:00 76 /min [facility] Respiratory rate 2023-02-04 20:31:00 18 /min [facility] Oxygen saturation in Arterial blood by Pulse oximetry 2023-02-04 20:31:00 97 /min [facility] Systolic blood pressure 2023-02-04 20:15:00 126 mm[Hg] [facility] Diastolic blood pressure 2023-02-04 20:15:00 98 mm[Hg] [facility] Body temperature 2023-02-04 20:15:00 36.83 Tia [facility] Body weight 2023-02-04 20:15:00 72.576 kg [facility] BMI 2023-02-04 20:15:00 22.96 kg/m2 [facility] Systolic blood pressure 2023-02-03 23:00:00 100 mm[Hg] [facility] Diastolic blood pressure 2023-02-03 23:00:00 65 mm[Hg] [facility] Heart rate 2023-02-03 23:00:00 115 /min [facility] Respiratory rate 2023-02-03 23:00:00 20 /min [facility] Oxygen saturation in Arterial blood by Pulse oximetry 2023-02-03 23:00:00 97 /min [facility] Body temperature 2023-02-03 22:44:00 36.72 Tia [facility] Body weight 2023-02-03 22:44:00 72.576 kg [facility] BMI 2023-02-03 22:44:00 22.96 kg/m2 [facility] Systolic blood pressure 2023-02-03 20:02:00 128 mm[Hg] [facility] Diastolic blood pressure 2023-02-03 20:02:00 81 mm[Hg] [facility] Heart rate 2023-02-03 20:02:00 88 /min [facility] Respiratory rate 2023-02-03 20:02:00 25 /min [facility] Oxygen saturation in Arterial blood by Pulse oximetry 2023-02-03 20:02:00 94 /min [facility] Body temperature 2023-02-03 18:18:00 36.61 Tia [facility] Body weight 2023-02-03 17:41:00 72.576 kg [facility] BMI 2023-02-03 17:41:00 22.96 kg/m2 [facility] Heart rate 2023-02-02 22:49:00 107 /min [facility] Respiratory rate 2023-02-02 22:49:00 20 /min [facility] Oxygen saturation in Arterial blood by Pulse oximetry 2023-02-02 22:49:00 94 /min [facility] Systolic blood pressure 2023-02-02 22:32:00 102 mm[Hg] [facility] Diastolic blood pressure 2023-02-02 22:32:00 74 mm[Hg] [facility] Body temperature 2023-02-02 21:58:32 35.83 Tia [facility] Body height 2023-02-02 21:54:00 177.8 cm [facility] Body weight 2023-02-02 21:54:00 72.576 kg [facility] BMI 2023-02-02 21:54:00 22.96 kg/m2 [facility] Systolic blood pressure 2023-01-31 21:00:00 140 mm[Hg] [facility] Diastolic blood pressure 2023-01-31 21:00:00 72 mm[Hg] [facility] Heart rate 2023-01-31 21:00:00 89 /min [facility] Respiratory rate 2023-01-31 21:00:00 20 /min [facility] Oxygen saturation in Arterial blood by Pulse oximetry 2023-01-31 21:00:00 97 /min [facility] Body temperature 2023-01-31 18:50:00 36.72 Tia [facility] Body weight 2023-01-31 18:50:00 72.576 kg [facility] BMI 2023-01-31 18:50:00 22.96 kg/m2 [facility] Systolic blood pressure 2023-01-31 16:09:00 130 mm[Hg] [facility] Diastolic blood pressure 2023-01-31 16:09:00 72 mm[Hg] [facility] Heart rate 2023-01-31 16:09:00 99 /min [facility] Body temperature 2023-01-31 16:09:00 36.39 Tia [facility] Respiratory rate 2023-01-31 16:09:00 18 /min [facility] Body height 2023-01-31 16:09:00 177.8 cm [facility] Body weight 2023-01-31 16:09:00 72.576 kg [facility] BMI 2023-01-31 16:09:00 22.96 kg/m2 [facility] Oxygen saturation in Arterial blood by Pulse oximetry 2023-01-31 16:09:00 97 /min [facility] Systolic blood pressure 2023-01-31 14:50:00 134 mm[Hg] [facility] Diastolic blood pressure 2023-01-31 14:50:00 72 mm[Hg] [facility] Heart rate 2023-01-31 14:50:00 85 /min [facility] Body temperature 2023-01-31 14:50:00 36.39 Tia [facility] Respiratory rate 2023-01-31 14:50:00 20 /min [facility] Body weight 2023-01-31 14:50:00 72.576 kg [facility] BMI 2023-01-31 14:50:00 22.96 kg/m2 [facility] Oxygen saturation in Arterial blood by Pulse oximetry 2023-01-31 14:50:00 100 /min [facility] Respiratory rate 2023-01-29 13:40:00 20 /min [facility] Oxygen saturation in Arterial blood by Pulse oximetry 2023-01-29 13:40:00 100 /min [facility] Systolic blood pressure 2023-01-29 13:06:00 123 mm[Hg] [facility] Diastolic blood pressure 2023-01-29 13:06:00 76 mm[Hg] [facility] Heart rate 2023-01-29 13:06:00 97 /min [facility] Body temperature 2023-01-29 13:06:00 36.61 Tia [facility] Body height 2023-01-29 13:06:00 177.8 cm [facility] Body weight 2023-01-29 13:06:00 72.576 kg [facility] BMI 2023-01-29 13:06:00 22.96 kg/m2 [facility] Systolic blood pressure 2023-01-27 11:47:00 115 mm[Hg] [facility] Diastolic blood pressure 2023-01-27 11:47:00 75 mm[Hg] [facility] Heart rate 2023-01-27 11:47:00 100 /min [facility] Body temperature 2023-01-27 11:47:00 35.78 Tia [facility] Respiratory rate 2023-01-27 11:47:00 28 /min [facility] Oxygen saturation in Arterial blood by Pulse oximetry 2023-01-27 11:47:00 99 /min [facility] Body height 2023-01-27 09:57:00 177.8 cm [facility] Body weight 2023-01-27 09:57:00 72.576 kg [facility] BMI 2023-01-27 09:57:00 22.96 kg/m2 [facility] Heart rate 2023-01-24 20:55:00 88 /min [facility] Oxygen saturation in Arterial blood by Pulse oximetry 2023-01-24 20:55:00 93 /min [facility] Respiratory rate 2023-01-24 20:52:00 22 /min [facility] Systolic blood pressure 2023-01-24 20:30:00 128 mm[Hg] [facility] Diastolic blood pressure 2023-01-24 20:30:00 69 mm[Hg] [facility] Body temperature 2023-01-24 17:24:00 36.67 Tia [facility] Body height 2023-01-24 17:24:00 177.8 cm [facility] Body weight 2023-01-24 17:24:00 72.576 kg [facility] BMI 2023-01-24 17:24:00 22.96 kg/m2 [facility] Systolic blood pressure 2023-01-24 01:00:00 129 mm[Hg] [facility] Diastolic blood pressure 2023-01-24 01:00:00 76 mm[Hg] [facility] Heart rate 2023-01-24 01:00:00 77 /min [facility] Respiratory rate 2023-01-24 01:00:00 18 /min [facility] Oxygen saturation in Arterial blood by Pulse oximetry 2023-01-24 01:00:00 99 /min [facility] Body temperature 2023-01-24 00:02:00 35.61 Tia warm blankets applied [facility] Body weight 2023-01-24 00:02:00 58.968 kg [facility] BMI 2023-01-24 00:02:00 18.65 kg/m2 [facility] Heart rate 2023-01-22 23:46:00 93 /min [facility] Respiratory rate 2023-01-22 23:46:00 20 /min [facility] Oxygen saturation in Arterial blood by Pulse oximetry 2023-01-22 23:46:00 100 /min [facility] Systolic blood pressure 2023-01-22 23:21:00 146 mm[Hg] [facility] Diastolic blood pressure 2023-01-22 23:21:00 93 mm[Hg] [facility] Body temperature 2023-01-22 23:21:00 36.72 Tia [facility] Body weight 2023-01-22 23:21:00 58.968 kg [facility] BMI 2023-01-22 23:21:00 18.65 kg/m2 [facility] Heart rate 2023-01-21 21:57:00 84 /min [facility] Respiratory rate 2023-01-21 21:57:00 18 /min [facility] Oxygen saturation in Arterial blood by Pulse oximetry 2023-01-21 21:57:00 97 /min [facility] Systolic blood pressure 2023-01-21 21:00:00 103 mm[Hg] [facility] Diastolic blood pressure 2023-01-21 21:00:00 61 mm[Hg] [facility] Body temperature 2023-01-21 19:24:00 36.56 Tia [facility] Body weight 2023-01-21 19:24:00 58.968 kg [facility] BMI 2023-01-21 19:24:00 18.65 kg/m2 [facility] Systolic blood pressure 2023-01-19 21:00:00 111 mm[Hg] [facility] Diastolic blood pressure 2023-01-19 21:00:00 64 mm[Hg] [facility] Heart rate 2023-01-19 21:00:00 85 /min [facility] Body temperature 2023-01-19 21:00:00 36.56 Tia [facility] Respiratory rate 2023-01-19 21:00:00 17 /min [facility] Oxygen saturation in Arterial blood by Pulse oximetry 2023-01-19 21:00:00 98 /min [facility] Body height 2023-01-19 06:22:00 177.8 cm [facility] Body weight 2023-01-19 06:22:00 58.968 kg [facility] BMI 2023-01-19 06:22:00 18.65 kg/m2 [facility] Systolic blood pressure 2023-01-17 12:05:00 116 mm[Hg] [facility] Diastolic blood pressure 2023-01-17 12:05:00 69 mm[Hg] [facility] Heart rate 2023-01-17 12:05:00 100 /min [facility] Respiratory rate 2023-01-17 12:05:00 24 /min [facility] Oxygen saturation in Arterial blood by Pulse oximetry 2023-01-17 12:05:00 93 /min [facility] Body temperature 2023-01-17 10:59:00 35.39 Tia [facility] Body height 2023-01-17 10:59:00 177.8 cm [facility] Body weight 2023-01-17 10:59:00 58.968 kg [facility] BMI 2023-01-17 10:59:00 18.65 kg/m2 [facility] Systolic blood pressure 2023-01-07 19:38:00 122 mm[Hg] [facility] Diastolic blood pressure 2023-01-07 19:38:00 86 mm[Hg] [facility] Heart rate 2023-01-07 19:38:00 110 /min [facility] Respiratory rate 2023-01-07 19:38:00 16 /min [facility] Body height 2023-01-07 19:38:00 177.8 cm [facility] Body weight 2023-01-07 19:38:00 59.966 kg [facility] BMI 2023-01-07 19:38:00 18.97 kg/m2 [facility] Systolic blood pressure 2022-12-26 18:00:00 118 mm[Hg] [facility] Diastolic blood pressure 2022-12-26 18:00:00 79 mm[Hg] [facility] Heart rate 2022-12-26 18:00:00 93 /min [facility] Respiratory rate 2022-12-26 18:00:00 20 /min [facility] Oxygen saturation in Arterial blood by Pulse oximetry 2022-12-26 18:00:00 95 /min [facility] Body temperature 2022-12-26 15:49:00 36.11 Tia [facility] Body height 2022-12-26 15:49:00 177.8 cm [facility] Body weight 2022-12-26 15:49:00 72.576 kg [facility] BMI 2022-12-26 15:49:00 22.96 kg/m2 [facility] Respiratory rate 2022-12-12 16:45:00 18 /min [facility] Oxygen saturation in Arterial blood by Pulse oximetry 2022-12-12 16:45:00 99 /min [facility] Systolic blood pressure 2022-12-12 16:11:00 135 mm[Hg] [facility] Diastolic blood pressure 2022-12-12 16:11:00 80 mm[Hg] [facility] Heart rate 2022-12-12 16:11:00 77 /min [facility] Body temperature 2022-12-12 16:11:00 35.89 Tia [facility] Body weight 2022-12-12 08:50:00 65 kg [facility] BMI 2022-12-12 08:50:00 20.56 kg/m2 [facility] Body height 2022-12-11 04:23:00 177.8 cm [facility] Heart rate 2022-12-04 12:33:00 95 /min [facility] Respiratory rate 2022-12-04 12:33:00 17 /min [facility] Oxygen saturation in Arterial blood by Pulse oximetry 2022-12-04 12:33:00 98 /min [facility] Systolic blood pressure 2022-12-04 12:20:00 125 mm[Hg] [facility] Diastolic blood pressure 2022-12-04 12:20:00 74 mm[Hg] [facility] Body temperature 2022-12-04 12:20:00 36.61 Tia [facility] Body height 2022-12-02 05:16:00 177.8 cm [facility] Body weight 2022-12-02 05:16:00 72.576 kg [facility] BMI 2022-12-02 05:16:00 22.96 kg/m2 [facility] Systolic blood pressure 2022-12-01 13:00:00 114 mm[Hg] [facility] Diastolic blood pressure 2022-12-01 13:00:00 78 mm[Hg] [facility] Heart rate 2022-12-01 13:00:00 88 /min [facility] Respiratory rate 2022-12-01 13:00:00 20 /min [facility] Oxygen saturation in Arterial blood by Pulse oximetry 2022-12-01 13:00:00 98 /min [facility] Body temperature 2022-12-01 10:13:00 36.67 Tia [facility] Body height 2022-12-01 10:13:00 177.8 cm [facility] Body weight 2022-12-01 10:13:00 72.576 kg [facility] BMI 2022-12-01 10:13:00 22.96 kg/m2 [facility] Systolic blood pressure 2022-11-28 17:00:00 154 mm[Hg] [facility] Diastolic blood pressure 2022-11-28 17:00:00 106 mm[Hg] [facility] Heart rate 2022-11-28 17:00:00 87 /min [facility] Respiratory rate 2022-11-28 17:00:00 23 /min [facility] Oxygen saturation in Arterial blood by Pulse oximetry 2022-11-28 17:00:00 96 /min [facility] Body temperature 2022-11-28 16:00:00 36.78 Tia [facility] Body weight 2022-11-27 12:00:00 67.132 kg [facility] BMI 2022-11-27 12:00:00 21.24 kg/m2 [facility] Body height 2022-11-27 08:39:00 177.8 cm [facility] Systolic blood pressure 2022-11-19 10:48:00 152 mm[Hg] [facility] Diastolic blood pressure 2022-11-19 10:48:00 88 mm[Hg] [facility] Heart rate 2022-11-19 10:48:00 92 /min [facility] Respiratory rate 2022-11-19 10:48:00 16 /min [facility] Oxygen saturation in Arterial blood by Pulse oximetry 2022-11-19 10:48:00 98 /min [facility] Body temperature 2022-11-19 08:20:00 36.22 Tia [facility] Body height 2022-11-19 08:20:00 177.8 cm [facility] Body weight 2022-11-19 08:20:00 67.132 kg [facility] BMI 2022-11-19 08:20:00 21.24 kg/m2 [facility] Systolic blood pressure 2022-11-19 02:18:57 152 mm[Hg] [facility] Diastolic blood pressure 2022-11-19 02:18:57 91 mm[Hg] [facility] Heart rate 2022-11-19 02:18:57 109 /min [facility] Respiratory rate 2022-11-19 02:18:57 22 /min [facility] Oxygen saturation in Arterial blood by Pulse oximetry 2022-11-19 02:18:57 95 /min [facility] Body temperature 2022-11-19 02:17:11 36.78 Tia [facility] Body height 2022-11-19 00:52:00 177.8 cm [facility] Body weight 2022-11-19 00:52:00 67.132 kg [facility] BMI 2022-11-19 00:52:00 21.24 kg/m2 [facility] Heart rate 2022-11-11 17:35:00 75 /min [facility] Respiratory rate 2022-11-11 17:35:00 18 /min [facility] Oxygen saturation in Arterial blood by Pulse oximetry 2022-11-11 17:35:00 95 /min [facility] Systolic blood pressure 2022-11-11 17:25:00 130 mm[Hg] [facility] Diastolic blood pressure 2022-11-11 17:25:00 71 mm[Hg] [facility] Body temperature 2022-11-11 17:25:00 35.94 Tia [facility] Body weight 2022-11-11 09:34:00 77.52 kg [facility] BMI 2022-11-11 09:34:00 24.52 kg/m2 [facility] Body height 2022-11-09 19:30:00 177.8 cm [facility] Systolic blood pressure 2020-12-29 15:24:00 96 mm[Hg] [facility] Diastolic blood pressure 2020-12-29 15:24:00 66 mm[Hg] [facility] Heart rate 2020-12-29 15:24:00 71 /min [facility] Body temperature 2020-12-29 15:24:00 36.33 Tia [facility] Body weight 2020-12-29 15:24:00 72.576 kg [facility] BMI 2020-12-29 15:24:00 22.96 kg/m2 [facility] Oxygen saturation in Arterial blood by Pulse oximetry 2020-12-29 15:24:00 95 /min [facility] Systolic blood pressure 2020-12-18 19:07:00 117 mm[Hg] [facility] Diastolic blood pressure 2020-12-18 19:07:00 77 mm[Hg] [facility] Heart rate 2020-12-18 19:07:00 77 /min [facility] Body temperature 2020-12-18 19:07:00 36.22 Tia [facility] Respiratory rate 2020-12-18 19:07:00 18 /min [facility] Body height 2020-12-18 19:07:00 177.8 cm [facility] Body weight 2020-12-18 19:07:00 73.211 kg [facility] BMI 2020-12-18 19:07:00 23.16 kg/m2 [facility] Systolic blood pressure 2020-12-12 18:00:00 109 mm[Hg] [facility] Diastolic blood pressure 2020-12-12 18:00:00 74 mm[Hg] [facility] Heart rate 2020-12-12 18:00:00 78 /min [facility] Respiratory rate 2020-12-12 18:00:00 20 /min [facility] Oxygen saturation in Arterial blood by Pulse oximetry 2020-12-12 18:00:00 96 /min [facility] Body temperature 2020-12-12 16:33:00 37.28 Tia [facility] Body height 2020-12-12 16:33:00 177.8 cm [facility] Body weight 2020-12-12 16:33:00 70.308 kg [facility] BMI 2020-12-12 16:33:00 22.24 kg/m2 [facility] Systolic blood pressure 2020-12-08 18:55:00 125 mm[Hg] [facility] Diastolic blood pressure 2020-12-08 18:55:00 82 mm[Hg] [facility] Heart rate 2020-12-08 18:55:00 75 /min [facility] Body temperature 2020-12-08 18:55:00 36.56 Tia [facility] Respiratory rate 2020-12-08 18:55:00 16 /min [facility] Body height 2020-12-08 18:55:00 177.8 cm [facility] Body weight 2020-12-08 18:55:00 73.12 kg [facility] BMI 2020-12-08 18:55:00 23.13 kg/m2 [facility] Systolic blood pressure 2019-05-04 04:21:00 127 mm[Hg] [facility] Diastolic blood pressure 2019-05-04 04:21:00 86 mm[Hg] [facility] Heart rate 2019-05-04 04:21:00 99 /min [facility] Respiratory rate 2019-05-04 04:21:00 26 /min [facility] Body height 2019-05-04 04:21:00 177.8 cm [facility] Body weight 2019-05-04 04:21:00 72.576 kg [facility] BMI 2019-05-04 04:21:00 22.96 kg/m2 [facility] Oxygen saturation in Arterial blood by Pulse oximetry 2019-05-04 04:21:00 99 /min [facility] Systolic blood pressure 2019-05-04 04:21:00 127 mm[Hg] [facility] Diastolic blood pressure 2019-05-04 04:21:00 86 mm[Hg] [facility] Heart rate 2019-05-04 04:21:00 99 /min [facility] Respiratory rate 2019-05-04 04:21:00 26 /min [facility] Body height 2019-05-04 04:21:00 177.8 cm [facility] Body weight 2019-05-04 04:21:00 72.576 kg [facility] BMI 2019-05-04 04:21:00 22.96 kg/m2 [facility] Oxygen saturation in Arterial blood by Pulse oximetry 2019-05-04 04:21:00 99 /min [facility] Procedures Procedure Date / Time Performed Performing Clinician Source MEDICATION CORRESPONDENCE 2023-07-08 05:01:00 Do ctor Unassigned, [place] [facility] [id number] 2023-03-15 00:00:00 [facility] CONSENT/REFUSAL FOR DIAGNOSIS AND TREATMENT 2023-03-01 19:49:30 Doctor Unassigned, [place] [facility] TRANSTHORACIC ECHO (TTE) COMPLETE W/ CONTRAST 2023-02-16 13:56:56 [facility] Toth [facility] TROPONIN I 2023-02-16 11:32:00 Dedrick Toth [facility] COMP. METABOLIC PANEL ([id number]) 2023-02-16 11:32:00 [facility] and [facility] CBC WITH DIFF 2023-02-16 11:32:00 Dedrick Toth [facility] N-TERMINAL PRO-BNP 2023-02-16 11:32:00 Dedrick Toth [facility] URINALYSIS 2023-02-15 21:18:00 Francisca Bryant [facility] HB ECG ROUTINE & RHYTHM STRIP 2023-02-15 20:15:35 Francisca Bryant [facility] XR CHEST 1 VW 2023-02-15 20:14:30 Francisca Bryant [facility] AC PANEL 21 + LACTIC ACID 2023-02-15 20:02:00 Francisca Bryant [facility] MAGNESIUM 2023-02-15 20:01:00 Francisca Bryant [facility] TROPONIN I 2023-02-15 20:01:00 Francisca Bryant [facility] COMP. METABOLIC PANEL ([id number]) 2023-02-15 20:01:00 Francisca Bryant [facility] CBC WITH DIFF 2023-02-15 20:01:00 Francisca Bryant [facility] ASSIGNMENT OF BENEFITS 2023-02-07 19:52:07 Docto r Unassigned, [place] [facility] CONSENT/REFUSAL FOR DIAGNOSIS AND TREATMENT 2023-02-07 19:51:03 Doctor Unassigned, [place] [facility] CONSENT/REFUSAL FOR DIAGNOSIS AND TREATMENT 2023-02-04 19:51:56 Doctor Unassigned, [place] [facility] TROPONIN I 2023-01-31 20:21:00 Rachael Flowers [facility] COMP. METABOLIC PANEL ([id number]) 2023-01-31 20:21:00 Rachael Flowers [facility] ETHANOL 2023-01-31 20:21:00 Rachael Flowers [facility] CBC WITH DIFF 2023-01-31 20:21:00 Rachael Flowers [facility] N-TERMINAL PRO-BNP 2023-01-31 20:21:00 Fernando Flowers [facility] CONSENT/REFUSAL FOR DIAGNOSIS AND TREATMENT 2023-01-31 18:39:05 Doctor Unassigned, [place] [facility] CONSENT/REFUSAL FOR DIAGNOSIS AND TREATMENT 2023-01-31 15:54:08 Doctor Unassigned, [place] [facility] CONSENT/REFUSAL FOR DIAGNOSIS AND TREATMENT 2023-01-31 14:29:18 Doctor Unassigned, [place] [facility] ACUTE CARE VENOUS BLOOD GAS 2023-01-27 10:45:00 Bessie Oswald [facility] TROPONIN I 2023-01-27 10:16:00 Bessie Oswald [facility] BASIC METABOLIC PANEL (NA, K, CL, CO2, GLUCOSE, BUN, CREATININE, CA) 2023-01-27 10:16:00 Bessie Oswald [facility] CBC WITH DIFF 2023-01-27 10:16:00 Bessie Oswald [facility] N-TERMINAL PRO-BNP 2023-01-27 10:16:00 Bessie Oswald [facility] URINALYSIS 2023-01-24 20:23:00 Stephanie Almonte [facility] CT HEAD WO CONTRAST 2023-01-24 19:38:00 Stephanie Almonte [facility] AC ABG + LACTIC ACID 2023-01-24 18:37:00 Stephanie Almonte [facility] AMMONIA, PLASMA 2023-01-24 18:19:00 Stephanie Almonte as [facility] RAPID STREP SCREEN FOR GROUP A 2023-01-24 18:19:00 Stephanie Almonte [facility] COVID-19 (ID NOW RAPID TESTING) 2023-01-24 18:19:00 Stephanie Almonte [facility] TROPONIN I 2023-01-24 17:52:00 Stephanie Almonte [facility] COMP. METABOLIC PANEL ([id number]) 2023-01-24 17:52:00 Stephanie Almonte [facility] ETHANOL 2023-01-24 17:52:00 Stephanie Almonte [facility] CBC WITH DIFF 2023-01-24 17:52:00 Stephanie Almonte [facility] N-TERMINAL PRO-BNP 2023-01-24 17:52:00 Stephanie Almonte [facility] COMP. METABOLIC PANEL ([id number]) 2023-01-21 20:58:00 Singer [facility] TROPONIN I 2023-01-21 20:05:00 Louis Hong [facility] CBC WITH DIFF 2023-01-21 20:05:00 [facility] N-TERMINAL PRO-BNP 2023-01-21 20:05:00 Singer [facility] AC PANEL 21 + LACTIC ACID 2023-01-19 08:31:00 Ramesh Hackett [facility] D-DIMER 2023-01-19 08:17:00 Lew Agapito [facility] BASIC METABOLIC PANEL (NA, K, CL, CO2, GLUCOSE, BUN, CREATININE, CA) 2023-01-19 08:15:00 Iza Varma [facility] CBC WITH DIFF 2023-01-19 08:15:00 Iza Varma [facility] N-TERMINAL PRO-BNP 2023-01-19 08:15:00 Jaymie Hacketthosh [facility] EKG-12 LEAD 2023-01-17 12:23:30 Marisol Devlin [facility] XR CHEST 1 VW 2023-01-17 11:25:05 Marisol Devlin [facility] TROPONIN I 2023-01-17 11:04:00 Marisol Devlin [facility] COMP. METABOLIC PANEL ([id number]) 2023-01-17 11:04:00 Marisol Devlin [facility] CBC WITH DIFF 2023-01-17 11:04:00 Marisol Devlin [facility] N-TERMINAL PRO-BNP 2023-01-17 11:04:00 Marisol Devlin [facility] COMP. METABOLIC PANEL ([id number]) 2022-12-26 17:23:00 Iza Varma [facility] XR CHEST 1 VW 2022-12-26 16:39:21 [facility] URINE DRUG (IMMUNOASSAY) - COMPREHENSIVE DRUG SCREEN 2022-12-26 16:29:00 Iza Varma [facility] URINALYSIS 2022-12-26 16:29:00 Iza Varma [facility] CBC WITH DIFF 2022-12-26 16:28:00 [facility] MAGNESIUM 2022-12-12 08:55:00 Travis Zeng [facility] BASIC METABOLIC PANEL (NA, K, CL, CO2, GLUCOSE, BUN, CREATININE, CA) 2022-12-12 08:55:00 Karri [facility] LIPID PANEL ([id number])(TOTAL CHOLESTEROL, TRIGLYCERIDES, HDL) 2022-12-12 08:55:00 Karri [facility] N-TERMINAL PRO-BNP 2022-12-12 08:55:00 Karri Travis [facility] MAGNESIUM 2022-12-11 08:30:00 Dedrick Toth [facility] OSMOLALITY, SERUM OR PLASMA 2022-12-11 08:30:00 Dedrick Toth [facility] FREE T4 2022-12-11 08:30:00 Dedrick Toth [facility] BASIC METABOLIC PANEL (NA, K, CL, CO2, GLUCOSE, BUN, CREATININE, CA) 2022-12-11 08:30:00 Dedrick Toth [facility] CBC WITH DIFF 2022-12-11 08:30:00 [facility] 2022-12-11 08:30:00 Dedrick Toth [facility] OSMOLALITY URINE 2022-12-11 03:24:00 Dedrick Toth [facility] SODIUM, URINE RANDOM 2022-12-11 03:24:00 Gunnar Toth [facility] URINALYSIS 2022-12-11 01:15:00 Louis Hong Ida [facility] HB ECG ROUTINE & RHYTHM STRIP 2022-12-11 00:38:04 Louis Hong [facility] CT HEAD WO CONTRAST 2022-12-11 00:32:23 Kameron Hong [facility] XR CHEST 1 VW 2022-12-11 00:29:20 Singer [facility] TROPONIN I 2022-12-11 00:08:00 [facility] COMP. METABOLIC PANEL ([id number]) 2022-12-11 00:08:00 Singer [facility] ETHANOL 2022-12-11 00:08:00 [facility] CBC WITH DIFF 2022-12-11 00:08:00 Singer [facility] N-TERMINAL PRO-BNP 2022-12-11 00:08:00 Singer [facility] LACTIC ACID WHOLE BLOOD 2022-12-11 00:03:00 [facility] 2022-12-09 05:01:00 Doctor Unassigned, [place] [facility] BASIC METABOLIC PANEL (NA, K, CL, CO2, GLUCOSE, BUN, CREATININE, CA) 2022-12-04 10:43:00 [facility] CBC WITH DIFF 2022-12-04 10:43:00 Clive Contreras [facility] OSMOLALITY URINE 2022-12-03 17:05:00 Lisseth De Santiago [facility] SODIUM, URINE RANDOM 2022-12-03 17:05:00 Haley De Santiago [facility] MAGNESIUM 2022-12-03 10:20:00 Clive [facility] BASIC METABOLIC PANEL (NA, K, CL, CO2, GLUCOSE, BUN, CREATININE, CA) 2022-12-03 10:20:00 [facility] CBC WITH DIFF 2022-12-03 10:20:00 Clive Contreras [facility] BASIC METABOLIC PANEL (NA, K, CL, CO2, GLUCOSE, BUN, CREATININE, CA) 2022-12-02 05:27:00 Carlo Maki [facility] CONSENT/REFUSAL FOR DIAGNOSIS AND TREATMENT 2022-12-02 05:08:30 Doctor Unassigned, [place] [facility] HOSPITAL ADMISSION 2022-12-02 05:01:00 Doctor Un assigned, [place] [facility] COVID-19 (ID NOW RAPID TESTING) 2022-12-01 13:01:00 Ernesto Piper [facility] XR CHEST 1 VW 2022-12-01 12:40:25 Marisol Devlin [facility] EKG-12 LEAD 2022-12-01 12:17:26 Marisol Devlin [facility] ACUTE CARE ARTERIAL BLOOD GAS 2022-12-01 12:06:00 Marisol Devlin [facility] TROPONIN I 2022-12-01 11:51:00 Marisol Devlin [facility] BASIC METABOLIC PANEL (NA, K, CL, CO2, GLUCOSE, BUN, CREATININE, CA) 2022-12-01 11:51:00 Marisol Devlin [facility] CBC WITH DIFF 2022-12-01 11:51:00 Marisol Devlin [facility] BASIC METABOLIC PANEL (NA, K, CL, CO2, GLUCOSE, BUN, CREATININE, CA) 2022-11-28 16:51:00 Leila Chapa [facility] URIC ACID 2022-11-28 08:14:00 [facility] HORMONE 2022-11-28 08:14:00 [facility]OLIC PANEL (NA, K, CL, CO2, GLUCOSE, BUN, CREATININE, CA) 2022-11-28 08:14:00 Leila Chapa [facility] CBC WITH DIFF 2022-11-28 08:14:00 María Diaz [facility] BASIC METABOLIC PANEL (NA, K, CL, CO2, GLUCOSE, BUN, CREATININE, CA) 2022-11-28 04:16:00 María Diaz [facility] BASIC METABOLIC PANEL (NA, K, CL, CO2, GLUCOSE, BUN, CREATININE, CA) 2022-11-28 00:33:00 Leila Chapa [facility] BASIC METABOLIC PANEL (NA, K, CL, CO2, GLUCOSE, BUN, CREATININE, CA) 2022-11-27 19:55:00 María Diaz [facility] MRSA / MSSA SCREEN BY PCR, NARES 2022-11-27 09:21:00 María Diaz [facility] OSMOLALITY, SERUM OR PLASMA 2022-11-27 09:10:00 Ori [facility] OSMOLALITY URINE 2022-11-27 09:04:00 María Diaz [facility] BASIC METABOLIC PANEL (NA, K, CL, CO2, GLUCOSE, BUN, CREATININE, CA) 2022-11-27 09:04:00 María Diaz [facility] URINE DRUG (IMMUNOASSAY) - COMPREHENSIVE DRUG SCREEN 2022-11-27 09:04:00 María Diaz [facility] URINALYSIS 2022-11-27 09:04:00 María Diaz [facility] CREATININE, URINE RANDOM 2022-11-27 09:04:00 Ben Diaz [facility] SODIUM, URINE RANDOM 2022-11-27 09:04:00 María Diaz [facility] XR CHEST 1 VW 2022-11-27 06:15:54 [facility] MAGNESIUM 2022-11-27 05:33:00 María Diaz [facility] TROPONIN I 2022-11-27 05:33:00 Bessie Oswald [facility] COMP. METABOLIC PANEL ([id number]) 2022-11-27 05:33:00 Bessie Oswald [facility] ETHANOL 2022-11-27 05:33:00 Bessie Oswald [facility] CBC WITH DIFF 2022-11-27 05:33:00 Bessie Oswald [facility] GLYCOSYLATED HEMOGLOBIN (A1C) 2022-11-27 05:33:00 Leila Chapa [facility] N-TERMINAL PRO-BNP 2022-11-27 05:33:00 Bessie Oswald [facility] HB ECG ROUTINE & RHYTHM STRIP 2022-11-27 05:31:54 Bessie Oswald [facility] COMP. METABOLIC PANEL ([id number]) 2022-11-19 08:44:00 Iza Varma [facility] CBC WITH DIFF 2022-11-19 08:44:00 Iza Varma [facility] N-TERMINAL PRO-BNP 2022-11-19 08:44:00 Iza Varma [facility] BASIC METABOLIC PANEL (NA, K, CL, CO2, GLUCOSE, BUN, CREATININE, CA) 2022-11-11 10:52:00 Iza Eden [facility] CBC WITH DIFF 2022-11-11 10:52:00 Meek Iza [facility] BASIC METABOLIC PANEL (NA, K, CL, CO2, GLUCOSE, BUN, CREATININE, CA) 2022-11-11 02:16:00 Guanako [facility] BASIC METABOLIC PANEL (NA, K, CL, CO2, GLUCOSE, BUN, CREATININE, CA) 2022-11-10 22:45:00 [place] [facility] BASIC METABOLIC PANEL (NA, K, CL, CO2, GLUCOSE, BUN, CREATININE, CA) 2022-11-10 17:27:00 [place] [facility] BASIC METABOLIC PANEL (NA, K, CL, CO2, GLUCOSE, BUN, CREATININE, CA) 2022-11-10 11:49:00 [place] [facility] MAGNESIUM 2022-11-10 07:14:00 [facility] BASIC METABOLIC PANEL (NA, K, CL, CO2, GLUCOSE, BUN, CREATININE, CA) 2022-11-10 07:14:00 [place] [facility] CBC WITH DIFF 2022-11-10 07:14:00 Maria D Mujica [facility] XR CHEST 1 VW 2022-11-09 07:53:00 Marisol Devlin [facility] LIPASE 2022-11-09 07:53:00 Marisol Devlin [facility] TROPONIN I 2022-11-09 07:53:00 Marisol Devlin [facility] COMP. METABOLIC PANEL ([id number]) 2022-11-09 07:53:00 Marisol Devlin [facility] CBC WITH DIFF 2022-11-09 07:53:00 Marisol Devlin [facility] N-TERMINAL PRO-BNP 2022-11-09 07:53:00 Marisol Devlin [facility] ACUTE CARE ARTERIAL BLOOD GAS 2022-11-09 07:50:00 Marisol Devlin [facility] HB ECG ROUTINE & RHYTHM STRIP 2022-11-09 07:39:47 Marisol Devlin [facility] ASSIGNMENT OF BENEFITS 2021-05-20 19:26:54 Docto r Unassigned, [place] [facility] POCT URINALYSIS AUTO 2020-12-18 19:04:00 Zeus Turner [facility] CT ABDOMEN PELVIS W CONTRAST 2020-12-12 17:25:03 Francisca Bryant [facility] BASIC METABOLIC PANEL (NA, K, CL, CO2, GLUCOSE, BUN, CREATININE, CA) 2020-12-12 16:47:00 Francisca Bryant [facility] CBC WITH DIFF 2020-12-12 16:47:00 [facility] 2020-12-12 16:47:00 [facility] PRIVACY PRACTICES 2020-12-12 16:28:57 Doctor Unassigned, [place] [facility] CONSENT/REFUSAL FOR DIAGNOSIS AND TREATMENT 2020-12-12 16:28:23 Doctor Unassigned, [place] [facility] POCT URINALYSIS AUTO 2020-12-08 18:56:00 Jeanette Mcdaniel [facility] CONSENT/REFUSAL FOR DIAGNOSIS AND TREATMENT 2020-12-08 18:26:17 Doctor Unassigned, [place] [facility] ASSIGNMENT OF BENEFITS 2020-12-08 18:25:58 Docto r Unassigned, [place] [facility] AUTHORIZATION FOR RELEASE OF PHI 2020-02-20 05:01:00 Doctor Unassigned, [place] [facility] NOTICE OF PRIVACY PRACTICES 2019-05-04 04:10:29 Doctor Unassigned, [place] [facility] CONSENT/REFUSAL FOR DIAGNOSIS AND TREATMENT 2019-05-04 04:10:09 Doctor Unassigned, [place] [facility] Encounters Start Date/Time End Date/Time Encounter Type Admission Type Attending [facility] Care Department Encounter ID Source 2021-07-19 08:46:33 Emergency [place] [id number] [facility] 2023-07-21 10:00:00 2023-07-21 10:00:00 Outpatient R NOMI MARY SHIWAN [place] [id number] [facility] 2023-07-15 00:00:00 2023-07-15 00:00:00 Case Management Nomi Mary [facility] 1.2.840.114 350.1.13.10 4.2.7.2.686 [id number] [facility] 2023-07-08 00:00:00 2023-07-08 00:00:00 Telephone Nomi Mary [facility] 1.2.840.114 350.1.13.10 4.2.7.2.686 [id number] [facility] 2023-07-08 00:00:00 2023-07-08 00:00:00 Orders Only Doctor Unassigned, [place] [facility] 1.2.840.114 350.1.13.10 4.2.7.2.686 [id number] [facility] 2023-04-22 00:00:00 2023-04-22 00:00:00 Outpatient R NOMI MARY SHIWAN [place] [id number] [facility] 2023-04-19 10:00:00 2023-04-19 10:53:24 Outpatient R NOMI MARY SHINYZain [place] [id number] [facility] 2023-04-19 10:00:00 2023-04-19 10:53:24 Office Visit [facility] 1..840.114 350.1.13.10 4.2.7.2.686 [id number] [facility] 2023-04-19 00:00:00 2023-04-19 00:00:00 Patient Outreach Marika Monge [facility]IA[facility] 1..840.114 350.1.13.10 4.2.7.2.686 [id number] [facility] 2023-03-15 07:16:00 2023-03-19 14:47:00 Inpatient EM Rudy Xiao [facility]02 [id number] 22 [facility] 2023-03-01 16:30:00 2023-03-01 17:00:00 Office Visit Cedric Ohssica [facility] 1.2.840.114 350.1.13.10 4.2.7.2.686 [id number] [facility] 2023-03-01 16:30:00 2023-03-01 16:30:00 [id number] 2023-03-01 00:00:00 2023-03-01 00:00:00 Orders Only Doctor Unassigned, [place] [facility] 1..840.114 350.1.13.10 4.2.7.2.686 [id number] [facility] 2023-03-01 00:00:00 2023-03-01 00:00:00 Mily Flores [facility] 1.2.840.114 350.1.13.10 4.2.7.2.686 [id number] [facility] 2023-02-21 00:00:00 2023-02-21 00:00:00 Transition of Care Taylor Frye 1.2.840.114 350.1.13.10 4.2.7.2.686 [id number] [facility] 2023-02-15 14:41:00 2023-02-18 16:11:00 Inpatient X TRAVIS ZENG [facility] PARRISH [id number] [facility] 2023-02-15 14:41:00 2023-02-18 16:11:00 Hospital Encounter Iza Varma Sandra J [place], Jelani [facility] 1..840.114 350.1.13.10 4.2.7.2.686 [id number] [facility] 2023-02-07 14:30:00 2023-02-07 16:01:00 Emergency X PRADIP AUSTIN [facility] ERT [id number] [facility] 2023-02-07 14:30:00 2023-02-07 16:01:00 Emergency Pradip Austin [facility] 1.2.840.114 350.1.13.10 4.2.7.2.686 [id number] [facility] 2023-02-07 10:20:00 2023-02-07 10:20:00 Outpatient CARL ALDRIDGE CHRISTINE [place] [id number] [facility] 2023-02-05 14:53:00 2023-02-05 16:10:00 Emergency X HERMINIA CHO [facility] ERT [id number] [facility] 2023-02-05 14:53:00 2023-02-05 16:10:00 Emergency Herminia Cho [facility] 1.2.840.114 350.1.13.10 4.2.7.2.686 [id number] [facility] 2023-02-04 15:26:00 2023-02-04 16:25:00 Emergency FRANCISCA MAHONEY [facility] ERT [id number] [facility] 2023-02-04 15:26:00 2023-02-04 16:25:00 Emergency Francisca Bryant [facility] 1.2.840.114 350.1.13.10 4.2.7.2.686 [id number] [facility] 2023-02-03 17:46:00 2023-02-03 18:47:00 Emergency Sandie SINGER [place] [facility] ERT [id number] [facility] 2023-02-03 17:46:00 2023-02-03 18:47:00 Emergency X SINGER [place] [facility] ERT [id number] [facility] 2023-02-03 17:46:00 2023-02-03 18:47:00 Emergency Singer Louis [facility] 1.2.840.114 350.1.13.10 4.2.7.2.686 [id number] [facility] 2023-02-03 12:43:00 2023-02-03 15:04:00 Emergency Bessie Oswald [facility] 1.2.840.114 350.1.13.10 4.2.7.2.686 [id number] [facility] 2023-02-02 16:49:00 2023-02-02 18:10:00 Emergency X LOUIS HONG [facility] ERT [id number] [facility] 2023-02-02 16:49:00 2023-02-02 18:10:00 Emergency Singer Louis [facility] 1.2.840.114 350.1.13.10 4.2.7.2.686 [id number] [facility] 2023-01-31 13:55:00 2023-01-31 16:50:00 Emergency X RACHAEL FLOWERS [facility] ERT [id number] [facility] 2023-01-31 13:55:00 2023-01-31 16:50:00 Emergency X RACHAEL FLOWERS [facility] ERT [id number] [facility] 2023-01-31 13:55:00 2023-01-31 16:50:00 Emergency [facility] 1.2.840.114 350.1.13.10 4.2.7.2.686 [id number] [facility] 2023-01-31 11:11:00 2023-01-31 12:12:00 Emergency X LEOBARDO SLOAN [facility] ERT [id number] [facility] 2023-01-31 11:11:00 2023-01-31 12:12:00 Emergency Leobardo Sloan [facility] 1.2.840.114 350.1.13.10 4.2.7.2.686 [id number] [facility] 2023-01-31 09:51:00 2023-01-31 10:16:00 Emergency [facility] 1.2.840.114 350.1.13.10 4.2.7.2.686 [id number] [facility] 2023-01-29 08:08:00 2023-01-29 10:00:00 Emergency X JOELHERMINIA [facility] ERT [id number] [facility] 2023-01-29 08:08:00 2023-01-29 10:00:00 Emergency Herminia Cho [facility] 1.2.840.114 350.1.13.10 4.2.7.2.686 [id number] [facility] 2023-01-27 04:50:00 2023-01-27 07:03:00 Emergency X BESSIE OSWALD [facility] ERT [id number] [facility] 2023-01-27 04:50:00 2023-01-27 07:03:00 Emergency Bessie Oswald C [facility] 1.2.840.114 350.1.13.10 4.2.7.2.686 [id number] [facility] 2023-01-27 00:00:00 2023-01-27 00:00:00 Telephone Nomi [facility] [facility] 1.2.840.114 350.1.13.10 4.2.7.2.686 [id number] 085 [id number] [facility] 2023-01-24 12:28:00 2023-01-24 16:16:00 Emergency X STEPHANIE ALMONTE [facility] ERT [id number] [facility] 2023-01-24 12:28:00 2023-01-24 16:16:00 Emergency Stephanie Almonte Meek [facility] 1.2.840.114 350.1.13.10 4.2.7.2.686 [id number] 084 [id number] [facility] 2023-01-23 19:02:00 2023-01-23 20:36:00 Emergency X IZA VARMA [facility] ERT [id number] [facility] 2023-01-23 19:02:00 2023-01-23 20:36:00 Emergency Iza Varma [facility] 1.2.840.114 350.1.13.10 4.2.7.2.686 [id number] 084 [id number] [facility] 2023-01-22 18:24:00 2023-01-22 19:55:00 Emergency X IZA VARMA [facility] ERT [id number] [facility] 2023-01-22 18:24:00 2023-01-22 19:55:00 Emergency Iza Varma [facility] 1.2.840.114 350.1.13.10 4.2.7.2.686 [id number] 084 [id number] [facility] 2023-01-21 14:20:00 2023-01-21 18:14:00 Emergency X LOUIS HONG [facility] ERT [id number] [facility] 2023-01-21 14:20:00 2023-01-21 18:14:00 Emergency Louis Hong [facility] 1.2.840.114 350.1.13.10 4.2.7.2.686 [id number] 084 [id number] [facility] 2023-01-20 00:00:00 2023-01-20 00:00:00 Transition of Care Taylor Frye NEEL GIORDANO 1.2.840.114 350.1.13.10 4.2.7.2.686 [id number] 403 [id number] [facility] 2023-01-19 01:15:00 2023-01-19 19:40:00 [facility] , Iza Hinton Santhosh Morris, David [facility] 1.2.840.114 350.1.13.10 4.2.7.2.686 [id number] 080 [id number] [facility] 2023-01-17 05:57:00 2023-01-17 07:37:00 Emergency X KEO DEVLINJOSEFINA [facility] ERT [id number] [facility] 2023-01-17 05:57:00 2023-01-17 07:37:00 Emergency Marisol Devlin [facility] 1.2.840.114 350.1.13.10 4.2.7.2.686 [id number] 084 [id number] [facility] 2023-01-17 05:57:00 2023-01-17 07:37:00 Emergency X MARISOL DEVLIN [facility] ERT [id number] [facility] 2023-01-10 00:00:00 2023-01-10 00:00:00 Letter (Out) Adriano [facility] 1.2.840.114 350.1.13.10 4.2.7.2.686 [id number] 092 [id number] [facility] 2023-01-07 14:30:00 2023-01-07 15:25:56 Outpatient R ADRIANO [facility] [id number] [facility] 2023-01-07 14:30:00 2023-01-07 15:25:56 Office Visit Adriano [facility] 1..840.114 350.1.13.10 4.2.7.2.686 [id number] 092 [id number] [facility] 2022-12-26 10:50:00 2022-12-26 14:12:00 Emergency X IZA VARMA [facility] ERT [id number] [facility] 2022-12-26 10:50:00 2022-12-26 14:12:00 Emergency Iza Varma S [facility] 1..840.114 350.1.13.10 4.2.7.2.686 [id number] [facility] 2022-12-14 11:30:00 2022-12-14 11:30:00 Outpatient R NOMI MARY SHIWAN [place] [id number] [facility] 2022-12-14 00:00:00 2022-12-14 00:00:00 Transition of Care Taylor Frye 1.2.840.114 350.1.13.10 4.2.7.2.686 [id number] [facility] 2022-12-10 18:49:00 2022-12-12 14:35:00 Outpatient X TRAVIS ZENG [facility] [id number] [facility] 2022-12-10 18:49:00 2022-12-12 14:35:00 [facility] 1.2.840.114 350.1.13.10 4.2.7.2.686 [id number] 081 [id number] [facility] 2022-12-10 00:00:00 2022-12-10 00:00:00 Case Management Nomi Mary [facility] 1.2.840.114 350.1.13.10 4.2.7.2.686 [id number] [id number] [facility] 2022-12-10 00:00:00 2022-12-10 00:00:00 Transition of Care Cecy Caro GIANCARLOZain SHAIKHDeepa GIORDANO 1.2.840.114 350.1.13.10 4.2.7.2.686 [id number] [facility] 2022-12-09 00:00:00 2022-12-09 00:00:00 Orders Only Doctor Unassigned, [place] [facility] 1.2.840.114 350.1.13.10 4.2.7.2.686 [id number] [facility] 2022-12-06 00:00:00 2022-12-06 00:00:00 Transition of Care Taylor Frye SHAIKHDeepa GIORDANO 1.2.840.114 350.1.13.10 4.2.7.2.686 [id number] [facility] 2022-12-02 00:13:00 2022-12-04 12:30:00 Hospital Encounter ElandCarlo miranda, Abi Contreras, [facility] ([facility]) 1.2.840.114 350.1.13.10 4.2.7.2.686 [id number] [facility] 2022-12-01 05:32:00 2022-12-01 09:08:00 Emergency ERNESTO SHANE ERNESTO [facility] ERT [id number] [facility] 2022-12-01 05:32:00 2022-12-01 09:08:00 Emergency ZainabjtMarisol Charles Davis, Elizabeth [facility] 1..840.114 350.1.13.10 4.2.7.2.686 [id number] 084 [id number] [facility] 2022-12-01 05:32:00 2022-12-01 09:08:00 Emergency U ERNESTO PIPER, ERNESTO [facility] ERT [id number] [facility] 2022-11-26 22:55:00 2022-11-28 13:50:00 Outpatient X LEILA CHAPA [facility] [id number] [facility] 2022-11-26 22:55:00 2022-11-28 13:50:00 Hospital Encounter Bessie Oswald David Abdullah [facility] 1..840.114 350.1.13.10 4.2.7.2.686 [id number] [facility] 2022-11-19 02:17:00 2022-11-19 05:12:00 Emergency X IZA VARMA [facility] ERT [id number] [facility] 2022-11-19 02:17:00 2022-11-19 05:12:00 Emergency Iza Varma [facility] 1.2.840.114 350.1.13.10 4.2.7.2.686 [id number] 084 [id number] [facility] 2022-11-18 18:52:00 2022-11-18 20:29:00 Emergency X FRANCISCA BRYANT [facility] ERT [id number] [facility] 2022-11-18 18:52:00 2022-11-18 20:29:00 Emergency Francisca Bryant [facility] 1.2.840.114 350.1.13.10 4.2.7.2.686 [id number] [id number] [facility] 2022-11-17 00:00:00 2022-11-17 00:00:00 Telephone [facility] 1.2840.114 350.1.13.10 4.2.7.2.686 [id number] 085 [id number] [facility] 2022-11-12 00:00:00 2022-11-12 00:00:00 Transition of Care Taylor Frye [facility] 1.2840.114 350.1.13.10 4.2.7.2.686 [id number] [facility] 2022-11-09 01:32:00 2022-11-11 13:35:00 Inpatient X TRAVIS ZENG [facility] [id number] [facility] 2022-11-09 01:32:00 2022-11-11 13:35:00 Hospital Encounter ClausMarisol Ramesh Travis Zeng [facility] 1.2840.114 350.1.13.10 4.2.7.2.686 [id number] [id number] [facility] 2021-05-22 00:00:00 2021-05-22 00:00:00 Telephone Jeanette Mcdaniel [facility] Building 1.2840.114 350.1.13.10 4.2.7.2.686 [id number] [facility] 2021-05-20 14:28:38 2021-05-20 14:43:38 Business Liaison Officer Visit [place], Anshu Lab Main Gokul Turner [facility] Building 1.2.840.114 350.1.13.10 4.2.7.2.686 [id number] [facility] 2021-05-20 14:30:00 2021-05-20 14:30:00 Outpatient R [facility] [id number] [facility] 2021-05-20 00:00:00 2021-05-20 00:00:00 Orders Only Doctor Unassigned, [place] [facility] 1.2.840.114 350.1.13.10 4.2.7.2.686 [id number] [id number] [facility] 2021-05-20 00:00:00 2021-05-20 00:00:00 Telephone Gokul Turner [facility] Building 1.2.840.114 350.1.13.10 4.2.7.2.686 [id number] [facility] 2020-12-29 10:12:45 2020-12-29 11:07:51 Office Visit Gokul Turner [facility] Building 1.2.840.114 350.1.13.10 4.2.7.2.686 [id number] [facility] 2020-12-29 10:15:00 2020-12-29 10:15:00 Outpatient R GOKUL TURNER [place] [id number] [facility] 2020-12-18 13:36:17 2020-12-18 14:58:35 Office Visit Gokul Turner, Anshu Surg Spec Procedure [facility] Building 1.2.840.114 350.1.13.10 4.2.7.2.686 [id number] [facility] 2020-12-18 14:00:00 2020-12-18 14:00:00 Outpatient R YUEGOKUL [place] [id number] [facility] 2020-12-16 00:00:00 2020-12-16 00:00:00 Outpatient R JEANETTE MCDANIEL [place] [id number] [facility] 2020-12-16 00:00:00 2020-12-16 00:00:00 Telephone Jeanette Mcdaniel Jeramy [facility] 1.2.840.114 350.1.13.10 4.2.7.2.686 [id number] [facility] 2020-12-12 11:36:00 2020-12-12 13:42:00 Emergency Francisca Bryant [facility] 1.2.840.114 350.1.13.10 4.2.7.2.686 [id number] 084 [id number] [facility] 2020-12-12 00:00:00 2020-12-12 00:00:00 Telephone Jeanette Mcdaniel [facility] 1.2.840.114 350.1.13.10 4.2.7.2.686 [id number] 204 [id number] [facility] 2020-12-08 13:28:10 2020-12-08 14:09:14 Office Visit Jeanette Mcdaniel [facility] 1.2.840.114 350.1.13.10 4.2.7.2.686 [id number] [facility] 2020-12-08 13:30:00 2020-12-08 13:30:00 Outpatient R JEANETTE MCDANIEL [place] [id number] [facility] 2020-12-08 00:00:00 2020-12-08 00:00:00 Orders Only Doctor Unassigned, [place] [facility] 1.2.840.114 350.1.13.10 4.2.7.2.686 [id number] [id number] [facility] 2020-12-07 00:00:00 2020-12-07 00:00:00 Nurse Triage Herminia Perez [facility] 1.2.840.114 350.1.13.10 4.2.7.2.686 [id number] [facility] 2020-06-19 13:30:00 2020-06-19 13:30:00 Outpatient Tyrell Mckeon [facility] [id number] [facility] 2020-02-20 00:00:00 2020-02-20 00:00:00 Orders Only Doctor Unassigned, [place] [facility] 1.2.840.114 350.1.13.10 4.2.7.2.686 [id number] [id number] 2020-02-20 00:00:00 2020-02-20 00:00:00 Orders Only Doctor Unassigned, [place] [facility] 1.2.840.114 350.1.13.10 4.2.7.2.686 [id number] 009 [id number] [facility] 2019-08-28 08:25:33 2019-08-28 11:54:00 Emergency X HERMINIA CHO [facility] ERT [id number] [facility] 2019-08-24 01:43:17 2019-08-24 03:52:00 Emergency X LOUIS HONG [facility] ERT [id number] [facility] 2019-05-03 23:28:18 2019-05-04 00:27:00 Emergency Ramesh Encinas [facility] 1.2.840.114 350.1.13.10 4.2.7.2.686 [id number] 084 [id number] 2019-05-03 23:28:18 2019-05-04 00:27:00 Emergency HuangRamesh [facility] 1.2.840.114 350.1.13.10 4.2.7.2.686 [id number] 084 [id number] [facility] 2019-05-03 00:00:00 2019-05-03 00:00:00 Orders Only Doctor Unassigned, [place] [facility] 1.2.840.114 350.1.13.10 4.2.7.2.686 [id number] [id number] 2019-05-03 00:00:00 2019-05-03 00:00:00 Orders Only Doctor Unassigned, [place] [facility] 1.2.840.114 350.1.13.10 4.2.7.2.686 [id number] 009 [id number] [facility] Results Test Description Test Time Test Comments Results Result Co mments Source GLUCOSE BEDSIDE [id number] 07:35:00* Test Item Value Reference Range Interpretation Comme [facility] GLUCOSE BEDSIDE TESTING (paris t code = GLUBED) 170 MG/DL 60-99 H VITAMIN [id number] 15:12:00* Test Item Value Reference Range Interpretation Comme [facility] VITAMIN B12 (test code = VITB12) 738 pg/mL 239-931 N FOLIC [id number] 15:12:00* Test Item Value Reference Range Interpretation Comme [facility] FOLIC ACID (test code = FOLR) 4.9 ng/mL REFERENCE VALUES : NORMAL: 2.76 - >20 ng/ML DEFICIENT: 1.04 - 2.79 ng/ML COMPREHENSIVE METABOLIC [id number] 11:38:00* Test Item Value Reference Range Interpretation Comme nts SODIUM (test code = NA) 133 MMOL/L [...] and aplastic anemia) with specific assayson the [employer]00 of which Total Protein is one of thoseassays performed in our lab.Interference testing performed at [facility] determined thatEltrombopag does interfere with Vitros Total [...] ALKP) 51 UNITS/L 38-126 N CBC W/AUTO [id number] 11:24:00* Test Item Value Reference Range Interpretation [...] NRBC#) 0.00 K/mm3 0.0-0.1 N ARTERIAL BLOOD [id number] 17:25:00* Test Item Value Reference Range Interpretation [...] code = TEMPA) 37.0 C See_Comment [Automated messa ge] The system which generated this result transmitted reference range: 37. The reference range was not used to interpret this result as normal/abnormal. ABG SITE (test code = SITEA) LR ALLENS TEST (test code = ALLENS) Y CHECK FIO2 (test code = COHBGFFIO2) 36 % [id number] 12:29:00* Test Item Value Reference Range Interpretation Comme nts PHOSPHOROUS (test code = PHOS) 3.5 MG/DL 2.5-4.5 N ADD ON TEST? [id number] 12:29:00* Test Item Value Reference Range Interpretation Comme nts MAGNESIUM (test code = MAG) 1.8 MG/DL 1.6-2.3 N ADD ON TEST? YesARTERIAL BLOOD [id number] 12:26:00* Test Item Value Reference Range Interpretation [...] values report to and readback by DR KELLI GARCIA by [email or web address] at 03/15/2023 12:12:31 PM [...] METHGB) 0.2 % 0.4-1.5 L VENOUS BLOOD [id number] 11:46:00* Test Item Value Reference Range Interpretation [...] METHGB) 0.0 % 0.4-1.5 L BASIC METABOLIC [id number] 07:06:00* Test Item Value Reference Range Interpretation [...] calculation forGFR is based on the CKD-EPI (202) calculation. This formulais race indifferent and is the recommended formula for GFRby the National Kidney Foundation for Adults.The GFR will not calculate if the sex is unknown or if thepatient's age is <18 years. CREATININE (test code = CREAT) 0.70 MG/DL 0.66-1.25 N CALCIUM (test code = CA) 7.7 MG/DL 8.4-10.2 L NT PRO-BRAIN NATRIURETIC [id number] 07:06:00* Test Item Value Reference Range Interpretation [...] well as other causes* of NT-proBNP elevation. [id number] 07:06:00* Test Item Value Reference Range Interpretation Comme nts TROPONIN-I (test code = TROPI) < 0.012 NG/ML 0.012-0.033 L - XR CHEST [id number] 06:59:00 [facility] 1960 Sex: M Patient Name: THIERRY MONGE Unit No: [id number] EXAMS: CPT CODE: [id number] XR CHEST 1V 06480 EXAMINATION: - XR CHEST 1V HISTORY: Chest [...] Technologist: Alex Vinson(RT) Transcrpt Date/Tm/Trnsp: 03/15/2023 (0659) t.SDR.AG38 Orig Print D/T: S: 03/15/2023 (0702) [facility] NAME: THIERRY MONGE [address] PHYS: [place] [address] : 1960 AGE: 62 SEX: M LOC: RUCHI PHONE #: [phone] EXAM DATE: 03/15/2023STATUS: REG ER FAX #: [phone] RADIOLOGY NO: PAGE 1 Signed ReportCBC W/O [id number] 06:42:00* Test Item Value Reference Range Interpretation [...] = NRBC#) 0.00 K/mm3 0.0-0.1 N TROPONIN [id number] 21:12:01* Test Item Value Reference Range Interpretation Comme nts TROPONIN I (test code = 6874106528) <=0.034 OMAYRA (test code = OMAYRA) Reference [...] of biotin. Lab Interpretation (test code = 63178-7) Normal [facility]. METABOLIC PANEL (31592)2023-02-15 21:00:57* Test Item Value Reference Range Interpretation Comme nts NA (test code = 9512251839) 133 mmol/L 135-145 L K (test code = 4390585590) 4.5 mmol/L 3.5-5.0 CL (test code = 9323111653) 90 mmol/L 98-108 L CO2 TOTAL (test code = 3927407931) 40 mmol/L 23-31 H AGAP (test code = 8646817454) 3 2-16 BUN (test code = 3882666403) 25 mg/dL 7-23 H GLUCOSE (test code = 3228744633) 107 mg/dL 70-110 CREATININE (test code = 4985443813) 0.88 mg/dL 0.60-1.25 TOTAL BILI (test code = 2249279789) 1.6 mg/dL 0.1-1.1 H CALCIUM (test code = 7454429938) 8.9 mg/dL 8.6-10.6 T PROTEIN (test code = 2462072686) 6.1 g/dL 6.3-8.2 L ALBUMIN (test code = 1879327900) 3.7 g/dL 3.5-5.0 ALK PHOS (test code = 2221843747) 56 U/L 34-122 ALTv (test code = 1742-6) 14 U/L 5-50 AST(SGOT) (test code = 5771827279) 12 U/L 13-40 L eGFR (test code = 5501578299) 87.2 mL/min/1.73m2 OMAYRA (test code = OMAYRA) [...] imaging tests). Lab Interpretation (test code = 74196-5) Abnormal [facility] 21:00:57* Test Item Value Reference Range Interpretation Comme nts MAGNESIUM (test code = 1643487293) 2.0 mg/dL 1.7-2.4 Lab Interpretation (test cod e = 46571-4) Normal [facility] WITH [id number] 20:53:39* Test Item Value Reference Range Interpretation Comme nts WBC (test code = 6690-2) 9.03 See_Comment [Automated [email or web address]] The system which generated this result transmitted reference range: 4.20 - 10.70 10*3/?L. The reference range was not used to interpret this result as normal/abnormal. RBC (test code = 789-8) 4.50 See_Comment [Automated [email or web address]] The system which generated this result transmitted [...] 33.0 g/dL 31.2-35.0 RDW-SD (test code = 33384-1) 50.1 fL 38.5-51.6 RDW-CV (test code = 788-0) 13.6 % 12.1-15.4 PLT (test code = 777-3) 223 See_Comment [Automated messa ge] The system which generated this result transmitted reference range: 150 - 328 10*3/?L. The reference range was not used to interpret this result as normal/abnormal. MPV (test code = 80555-6) 12.1 fL 9.8-13.0 NRBC/100 WBC (test code = 3962504173) 0.0 See_Comment [Automated me ssage] The system which generated this result transmitted reference range: 0.0 - 10.0 /100 WBCs. The reference range was not used to interpret this result as normal/abnormal. NRBC x10^3 (test code = 1738634605) See_Comment [Automated messa ge] The system which generated this result transmitted reference range: 10*3/?L. The reference range was not used to interpret this result as normal/abnormal. GRAN MAT (NEUT) % (test code = 770-8) 72.8 % IMM GRAN % (test code = 9220030336) 0.90 % LYMPH % (test code = 736-9) 17.7 % MONO % (test code = 5905-5) 7.4 % EOS % (test code = 713-8) 0.9 % BASO % (test code = 706-2) 0.3 % GRAN MAT x10^3(ANC) (test code = 3583508374) 6.57 10*3/uL 1.99-6.95 IMM GRAN x10^3 (test code = 8589681841) 0.08 10*3/uL 0.00-0.06 H LYMPH x10^3 (test code = 731-0) 1.60 10*3/uL 1.09-3.23 MONO x10^3 (test code = 742-7) 0.67 10*3/uL 0.36-1.02 EOS x10^3 (test code = 711-2) 0.08 10*3/uL 0.06-0.53 BASO x10^3 (test code = 704-7) 0.03 10*3/uL 0.01-0.09 Lab Interpretation (test code = 28389-4) Abnormal [facility] 21 + LACTIC [id number] 20:11:20* Test Item Value Reference Range Interpretation Comme nts PH (test code = 2689867092) 7.33 7.32-7.42 PCO2 ERVIN (test code = 0679932220) 75 See_Comment H [Automated messa ge] The system which generated this result transmitted reference range: 41 - 51 mmHg. The reference range was not used to interpret this result as normal/abnormal. PO2 ERVIN (test code = 3211178574) 20 See_Comment L [Automated messa ge] The system which generated this result transmitted reference range: 25 - 40 mmHg. The reference range was not used to interpret this result as normal/abnormal. HCO3 ERVIN (test code = 7404989511) 39 See_Comment H [Automated messa ge] The system which generated this result transmitted reference range: 24 - 28 mEq/L. The reference range was not used to interpret this result as normal/abnormal. AC VBE(BEAKER) (test code = 9240328385) 9.1 mEq/L THB ERVIN (test code = 0771401623) 15.9 g/dL 13.5-18.0 %O2HB ERVIN (test code = 8222366589) 30.0 % 52.0-63.0 L %COHB ERVIN (test code = 2311220973) 4.1 % 0.0-1.5 H %METHB ERVIN (test code = 6559661006) 0.3 % 0.4-1.5 L VOL%O2 ERVIN (test code = 7307626455) 6.7 % 6.0-12.0 NA (test code = 9469739264) 137 mmol/L 135-145 K+ (test code = 9051625532) 4.5 mmol/L 3.5-5.0 AC CA IONZ (test code = 3257002628) 4.60 mg/dL 4.50-5.30 GLUCOSE (test code = 1244158543) 113 mg/dL 70-110 H LACTIC ACID (test code = 5556613342) 1.65 mmol/L 0.50-2.20 Lab Interpretation (test code = 82201-3) Abnormal [facility] [id number] 21:20:05* Test Item Value Reference Range Interpretation Comme nts TROPONIN I (test code = 0023158537) 0.005 ng/mL <=0.034 OMAYRA (test code = [...] of biotin. Lab Interpretation (test code = 48018-9) Normal [facility]MINAL BIG-[id number] 21:17:24* Test Item Value Reference Range Interpretation Comme nts NT-proBNP (test code = 4615579809) 712 pg/mL <=125 H OMAYRA (test code = OMAYRA) Biotin has been reported to cause a negative bias, interpret results relative to patient's use of biotin. Lab Interpretation (test code = 46364-1) Abnormal [facility] ResourcesETH[facility]OL2023-05-15 21:13:47 ALCOHOL<10mg/dL01/31/2023 4:13 PM [facility]<10 Jdpmzzfs30-580 Toxic>100 Depression of EDGERMAN>400 Fatalities ReportedJoint [facility]. METABOLIC PANEL (80988)2023-01-31 21:10:01* Test Item Value Reference Range Interpretation Comme nts NA (test code = 3328690897) 142 mmol/L 135-145 K (test code = 7508570978) 4.7 mmol/L 3.5-5.0 CL (test code = 4380674336) 99 mmol/L 98-108 CO2 TOTAL (test code = 2037219284) 37 mmol/L 23-31 H AGAP (test code = 0637682778) 6 2-16 BUN (test code = 6883385713) 30 mg/dL 7-23 H GLUCOSE (test code = 1071581982) 100 mg/dL 70-110 CREATININE (test code = 1546526173) 0.61 mg/dL 0.60-1.25 TOTAL BILI (test code = 4813096856) 0.6 mg/dL 0.1-1.1 CALCIUM (test code = 4739537657) 8.8 mg/dL 8.6-10.6 T PROTEIN (test code = 0636080686) 5.9 g/dL 6.3-8.2 L ALBUMIN (test code = 1838118772) 3.5 g/dL 3.5-5.0 ALK PHOS (test code = 8844394958) 42 U/L 34-122 ALTv (test code = 1742-6) 16 U/L 5-50 AST(SGOT) (test code = 4912365018) 12 U/L 13-40 L eGFR (test code = 8364792260) 133.1 mL/min/1.73m2 OMAYRA (test code = OMAYRA) [...] imaging tests). Lab Interpretation (test code = 60921-3) Abnormal [facility] WITH [id number] 20:59:58* Test Item Value Reference Range Interpretation [...] g/dL 31.2-35.0 L RDW-SD (test code = 20822-3) 61.6 fL 38.5-51.6 H RDW-CV (test code = 788-0) 16.2 % 12.1-15.4 H PLT (test code = 777-3) 250 See_Comment [Automated message] The system which generated this result transmitted reference range: 150 - 328 10*3/?L. The reference range was not used to interpret this result as normal/abnormal. MPV (test code = 02774-2) 10.5 fL 9.8-13.0 NRBC/100 WBC (test code = 9787303623) 0.0 See_Comment [Automated message] The system which generated this result transmitted reference range: 0.0 - 10.0 /100 WBCs. The reference range was not used to interpret this result as normal/abnormal. NRBC x10^3 (test code = 2224282533) See_Comment [Automated message] The system which generated this result transmitted reference range: 10*3/?L. The reference range was not used to interpret this result as normal/abnormal. GRAN MAT (NEUT) % (test code = 770-8) 90.9 % IMM GRAN % (test code = 0755561546) 1.20 % LYMPH % (test code = 736-9) 3.9 % MONO % (test code = 5905-5) 3.8 % EOS % (test code = 713-8) 0.0 % BASO % (test code = 706-2) 0.2 % GRAN MAT x10^3(ANC) (test code = 7068282763) 11.83 10*3/uL 1.99-6.95 H IMM GRAN x10^3 (test code = 8211358895) 0.16 10*3/uL 0.00-0.06 H LYMPH x10^3 (test code = 731-0) 0.51 10*3/uL 1.09-3.23 L MONO x10^3 (test code = 742-7) 0.49 10*3/uL 0.36-1.02 EOS x10^3 (test code = 711-2) 0.06-0.53 L BASO x10^3 (test code = 704-7) 0.03 10*3/uL 0.01-0.09 Lab Interpretation (test code = 09108-6) [id number]:16:36* Test Item Value Reference Range Interpretation Comme nts TROPONIN I (test code = 0377361687) 0.002 ng/mL <=0.034 OMAYRA (test code = [...] of biotin. Lab Interpretation (test code = 51017-8) Normal [facility] [id number]-[id number] 11:13:18* Test Item Value Reference Range Interpretation Comme nts NT-proBNP (test code = 2237516340) 112 pg/mL <=125 OMAYRA (test code = OMAYRA) Biotin has been reported to cause a negative bias, interpret results relative to patient's use of biotin. Lab Interpretation (test code = 61831-2) Normal [facility] METABOLIC PANEL (NA, K, CL, CO2, GLUCOSE, BUN, CREATININE, CA)2023-01-27 11:04:56* Test Item Value Reference Range Interpretation Comme nts NA (test code = 0002985678) 136 mmol/L 135-145 K (test code = 9501646368) 4.1 mmol/L 3.5-5.0 CL (test code = 2286102413) 96 mmol/L 98-108 L CO2 TOTAL (test code = 2929675157) 34 mmol/L 23-31 H AGAP (test code = 9353528593) 6 2-16 BUN (test code = 5149475585) 22 mg/dL 7-23 GLUCOSE (test code = 8864773921) 117 mg/dL 70-110 H CREATININE (test code = 7698309162) 0.55 mg/dL 0.60-1.25 L CALCIUM (test code = 9177368833) 8.4 mg/dL 8.6-10.6 L eGFR (test code = 9847072310) 150.0 mL/min/1.73m2 OMAYRA (test code = OMAYRA) [...] imaging tests). Lab Interpretation (test code = 97774-1) Abnormal [facility] WITH [id number] 10:38:33* Test Item Value Reference Range Interpretation Comme nts WBC (test code = 6690-2) 9.56 See_Comment [Owlient] The system which generated this result transmitted reference range: 4.20 - 10.70 10*3/?L. The reference range was not used to interpret this result as normal/abnormal. RBC (test code = 789-8) 4.31 See_Comment [Owlient] The system which generated this result transmitted [...] 31.8 g/dL 31.2-35.0 RDW-SD (test code = 92525-7) 56.7 fL 38.5-51.6 H RDW-CV (test code = 788-0) 15.3 % 12.1-15.4 PLT (test code = 777-3) 220 See_Comment [Automated messa ge] The system which generated this result transmitted reference range: 150 - 328 10*3/?L. The reference range was not used to interpret this result as normal/abnormal. MPV (test code = 50149-7) 10.6 fL 9.8-13.0 NRBC/100 WBC (test code = 7553179994) 0.0 See_Comment [Automated me ssage] The system which generated this result transmitted reference range: 0.0 - 10.0 /100 WBCs. The reference range was not used to interpret this result as normal/abnormal. NRBC x10^3 (test code = 0472015718) See_Comment [Automated messa ge] The system which generated this result transmitted reference range: 10*3/?L. The reference range was not used to interpret this result as normal/abnormal. GRAN MAT (NEUT) % (test code = 770-8) 60.0 % IMM GRAN % (test code = 7033201722) 0.70 % LYMPH % (test code = 736-9) 26.5 % MONO % (test code = 5905-5) 11.4 % EOS % (test code = 713-8) 0.9 % BASO % (test code = 706-2) 0.5 % GRAN MAT x10^3(ANC) (test code = 4069224553) 5.73 10*3/uL 1.99-6.95 IMM GRAN x10^3 (test code = 5693194632) 0.07 10*3/uL 0.00-0.06 H LYMPH x10^3 (test code = 731-0) 2.53 10*3/uL 1.09-3.23 MONO x10^3 (test code = 742-7) 1.09 10*3/uL 0.36-1.02 H EOS x10^3 (test code = 711-2) 0.09 10*3/uL 0.06-0.53 BASO x10^3 (test code = 704-7) 0.05 10*3/uL 0.01-0.09 Lab Interpretation (test code = 84398-1) Abnormal [facility], [id number] 18:51:59* Test Item Value Reference Range Interpretation Comme nts AMMONIA (test code = 0366740542) 9-33 L Lab Interpretation (test cod e = 53409-7) Abnormal [facility] + LACTIC [id number] 18:40:53* Test Item Value Reference Range Interpretation Comme nts PH (test code = 2) 7.43 7.35-7.45 PCO2 (test code = 6638062452) 53 See_Comment H [Automated messa ge] The system which generated this result transmitted reference range: 35 - 45 mmHg. The reference range was not used to interpret this result as normal/abnormal. PO2 (test code = 2384621976) 49 See_Comment L [Automated messa ge] The system which generated this result transmitted reference range: 80 - 100 mmHg. The reference range was not used to interpret this result as normal/abnormal. HCO3 (test code = 7957120537) 34 See_Comment H [Automated messa ge] The system which generated this result transmitted reference range: 22 - 26 mEq/L. The reference range was not used to interpret this result as normal/abnormal. BE (test code = 5857297796) 7.8 See_Comment H [Automated messa ge] The system which generated this result transmitted reference range: -3.0 - 3.0 mEq/L. The reference range was not used to interpret this result as normal/abnormal. LACTIC ACID (test code = 1656837892) 0.92 mmol/L 0.50-2.20 Lab Interpretation (test code = 19988-4) Abnormal [facility] ResourcesTrop[facility] [id number] 18:28:26* Test Item Value Reference Range Interpretation Comme nts TROPONIN I (test code = 2167864127) 0.003 ng/mL <=0.034 OMAYRA (test code = [...] of biotin. Lab Interpretation (test code = 55886-7) Normal [facility]N-[facility]MINAL [id number]-[id number] 18:25:29* Test Item Value Reference Range Interpretation Comme nts NT-proBNP (test code = 6170630996) 376 pg/mL <=125 H OMAYRA (test code = OMAYRA) Biotin has been reported to cause a negative bias, interpret results relative to patient's use of biotin. Lab Interpretation (test code = 35091-4) Abnormal [facility]COM Metabolic Panel (11972)2023-01-24 18:24:03* Test Item Value Reference Range Interpretation Comme nts NA (test code = 3980076994) 135 mmol/L 135-145 K (test code = 4059537311) 4.0 mmol/L 3.5-5.0 CL (test code = 0397657536) 90 mmol/L 98-108 L CO2 TOTAL (test code = 3259936287) 43 mmol/L 23-31 H AGAP (test code = 3140926619) 2 2-16 BUN (test code = 5366123927) 12 mg/dL 7-23 GLUCOSE (test code = 8449456345) 92 mg/dL 70-110 CREATININE (test code = 6939508056) 0.58 mg/dL 0.60-1.25 L TOTAL BILI (test code = 6495620436) 1.3 mg/dL 0.1-1.1 H CALCIUM (test code = 1709150409) 8.6 mg/dL 8.6-10.6 T PROTEIN (test code = 6956412580) 6.0 g/dL 6.3-8.2 L ALBUMIN (test code = 6766009974) 3.6 g/dL 3.5-5.0 ALK PHOS (test code = 9188581695) 52 U/L 34-122 ALTv (test code = 1742-6) 17 U/L 5-50 AST(SGOT) (test code = 0363809284) 10 U/L 13-40 L eGFR (test code = 1778088270) 141.1 mL/min/1.73m2 OMAYRA (test code = OMAYRA) [...] imaging tests). Lab Interpretation (test code = 66738-5) Abnormal [facility] ResourcesETHANOL2023-05-08 18:23:38 ALCOHOL<10mg/dL01/24/2023 1:23 PM [facility] Wxffnyli52-545 Toxic>100 Depression of EDGERMAN>400 F[facility]UnM[facility] CenterCBC with Xrukkuazqurn5617-37-43 18:09:00* Test Item Value Reference Range Interpretation Comme nts WBC (test code = 6690-2) 7.84 See_Comment [Automated [email or web address]] The system which generated this result transmitted reference range: 4.20 - 10.70 10*3/?L. The reference range was not used to interpret this result as normal/abnormal. RBC (test code = 789-8) 4.46 See_Comment [Automated [email or web address]] The system which generated this result transmitted [...] g/dL 31.2-35.0 L RDW-SD (test code = 25356-7) 59.7 fL 38.5-51.6 H RDW-CV (test code = 788-0) 15.8 % 12.1-15.4 H PLT (test code = 777-3) 239 See_Comment [Automated messa ge] The system which generated this result transmitted reference range: 150 - 328 10*3/?L. The reference range was not used to interpret this result as normal/abnormal. MPV (test code = 40765-0) 10.5 fL 9.8-13.0 NRBC/100 WBC (test code = 3181622549) 0.0 See_Comment [Automated Doubloon ssage] The system which generated this result transmitted reference range: 0.0 - 10.0 /100 WBCs. The reference range was not used to interpret this result as normal/abnormal. NRBC x10^3 (test code = 8905605632) See_Comment [Automated messa ge] The system which generated this result transmitted reference range: 10*3/?L. The reference range was not used to interpret this result as normal/abnormal. GRAN MAT (NEUT) % (test code = 770-8) 64.5 % IMM GRAN % (test code = 3911080076) 0.40 % LYMPH % (test code = 736-9) 23.1 % MONO % (test code = 5905-5) 9.8 % EOS % (test code = 713-8) 1.8 % BASO % (test code = 706-2) 0.4 % GRAN MAT x10^3(ANC) (test code = 8397638641) 5.06 10*3/uL 1.99-6.95 IMM GRAN x10^3 (test code = 0817860573) 0.03 10*3/uL 0.00-0.06 LYMPH x10^3 (test code = 731-0) 1.81 10*3/uL 1.09-3.23 MONO x10^3 (test code = 742-7) 0.77 10*3/uL 0.36-1.02 EOS x10^3 (test code = 711-2) 0.14 10*3/uL 0.06-0.53 BASO x10^3 (test code = 704-7) 0.03 10*3/uL 0.01-0.09 Lab Interpretation (test code = 05998-0) Abnormal [facility]COMP[facility] METABOLIC PANEL (84961)2023-01-21 21:33:50* Test Item Value Reference Range Interpretation Comme nts NA (test code = 0634545515) 136 mmol/L 135-145 K (test code = 5648176247) 4.3 mmol/L 3.5-5.0 CL (test code = 9490998883) 95 mmol/L 98-108 L CO2 TOTAL (test code = 2414705823) 38 mmol/L 23-31 H AGAP (test code = 5972963620) 3 2-16 BUN (test code = 2142043685) 17 mg/dL 7-23 GLUCOSE (test code = 0592028620) 102 mg/dL 70-110 CREATININE (test code = 4785290565) 0.62 mg/dL 0.60-1.25 TOTAL BILI (test code = 3963029212) 0.8 mg/dL 0.1-1.1 CALCIUM (test code = 2281833695) 7.8 mg/dL 8.6-10.6 L T PROTEIN (test code = 3057223967) 4.9 g/dL 6.3-8.2 L ALBUMIN (test code = 3265743691) 3.0 g/dL 3.5-5.0 L ALK PHOS (test code = 9728131214) 45 U/L 34-122 ALTv (test code = 1742-6) 13 U/L 5-50 AST(SGOT) (test code = 9763493636) 11 U/L 13-40 L eGFR (test code = 9120911027) 130.6 mL/min/1.73m2 OMAYRA (test code = OMAYRA) [...] imaging tests). Lab Interpretation (test code = 58868-3) Abnormal [facility] ResourcesTRANISHAN [id number] 21:11:45* Test Item Value Reference Range Interpretation Comme nts TROPONIN I (test code = 2892722120) 0.019 ng/mL <=0.034 OMAYRA (test code = [...] of biotin. Lab Interpretation (test code = 21421-8) Normal [facility]N-TERMINAL [id number] 21:08:47* Test Item Value Reference Range Interpretation Comme nts NT-proBNP (test code = 2945142649) 266 pg/mL <=125 H Hemolyzed specimen OMAYRA (test code = OMAYRA) Biotin has been reported to cause a negative bias, interpret results relative to patient's use of biotin. Lab Interpretation (test code = 76753-3) Abnormal [facility] ResourcesCBC WITH [id number] 20:40:24* Test Item Value Reference Range Interpretation Comme nts WBC (test code = 6690-2) 6.78 See_Comment [Automated OpenLabela ge] The system which generated this result transmitted reference range: 4.20 - 10.70 10*3/?L. The reference range was not used to interpret this result as normal/abnormal. RBC (test code = 789-8) 4.47 See_Comment [Automated messa ge] The system which [...] g/dL 31.2-35.0 L RDW-SD (test code = 66438-0) 60.4 fL 38.5-51.6 H RDW-CV (test code = 788-0) 16.2 % 12.1-15.4 H PLT (test code = 777-3) 215 See_Comment [Automated OpenLabela ge] The system which generated this result transmitted reference range: 150 - 328 10*3/?L. The reference range was not used to interpret this result as normal/abnormal. MPV (test code = 68943-4) 10.9 fL 9.8-13.0 NRBC/100 WBC (test code = 3919472401) 0.0 See_Comment [Automated me ssage] The system which generated this result transmitted reference range: 0.0 - 10.0 /100 WBCs. The reference range was not used to interpret this result as normal/abnormal. NRBC x10^3 (test code = 2169671353) See_Comment [Automated messa ge] The system which generated this result transmitted reference range: 10*3/?L. The reference range was not used to interpret this result as normal/abnormal. GRAN MAT (NEUT) % (test code = 770-8) 75.4 % IMM GRAN % (test code = 9661407605) 0.40 % LYMPH % (test code = 736-9) 15.3 % MONO % (test code = 5905-5) 7.7 % EOS % (test code = 713-8) 0.9 % BASO % (test code = 706-2) 0.3 % GRAN MAT x10^3(ANC) (test code = 3913678588) 5.11 10*3/uL 1.99-6.95 IMM GRAN x10^3 (test code = 4651866814) 0.03 10*3/uL 0.00-0.06 LYMPH x10^3 (test code = 731-0) 1.04 10*3/uL 1.09-3.23 L MONO x10^3 (test code = 742-7) 0.52 10*3/uL 0.36-1.02 EOS x10^3 (test code = 711-2) 0.06 10*3/uL 0.06-0.53 BASO x10^3 (test code = 704-7) 0.01-0.09 Lab Interpretation (test code = 62215-0) Abnormal [facility]inal Epc-[id number] 08:49:53* Test Item Value Reference Range Interpretation Comme nts NT-proBNP (test code = 5934908144) 158 pg/mL <=125 H OMAYRA (test code = OMAYRA) Biotin has been reported to cause a negative bias, interpret results relative to patient's use of biotin. Lab Interpretation (test code = 53526-6) Abnormal [facility] ResourcesD-Bbpbc6316-67-38 08:44:10* Test Item Value Reference Range Interpretation Comments D-DIMER (test code = 0303091460) See_Comment [Automated message] The system which generated [...] a diagnosis. Lab Interpretation (test code = 07877-1) Normal [facility] ResourcesBASI METABOLIC PANEL (NA, K, CL, CO2, GLUCOSE, BUN, CREATININE, CA)2023-01-19 08:41:13* Test Item Value Reference Range Interpretation Comme nts NA (test code = 5379891174) 134 mmol/L 135-145 L K (test code = 3182694653) 5.3 mmol/L 3.5-5.0 H CL (test code = 7182281363) 91 mmol/L 98-108 L CO2 TOTAL (test code = 0036052726) 40 mmol/L 23-31 H AGAP (test code = 9973273512) 3 2-16 BUN (test code = 2824527117) 14 mg/dL 7-23 GLUCOSE (test code = 5761238067) 125 mg/dL 70-110 H CREATININE (test code = 3744421859) 0.64 mg/dL 0.60-1.25 CALCIUM (test code = 3332434548) 8.5 mg/dL 8.6-10.6 L eGFR (test code = 7319423275) 125.9 mL/min/1.73m2 OMAYRA (test code = OMAYRA) [...] imaging tests). Lab Interpretation (test code = 82098-3) Abnormal [facility] WITH [id number] 08:27:33* Test Item Value Reference Range Interpretation Comme nts WBC (test code = 6690-2) 10.04 See_Comment [Automated [email or web address]] The system which generated this result transmitted reference range: 4.20 - 10.70 10*3/?L. The reference range was not used to interpret this result as normal/abnormal. RBC (test code = 789-8) 4.35 See_Comment [Automated [email or web address]] The system which generated this result transmitted [...] 31.2 g/dL 31.2-35.0 RDW-SD (test code = 55168-1) 58.4 fL 38.5-51.6 H RDW-CV (test code = 788-0) 15.9 % 12.1-15.4 H PLT (test code = 777-3) 211 See_Comment [Automated OpenLabela ge] The system which generated this result transmitted reference range: 150 - 328 10*3/?L. The reference range was not used to interpret this result as normal/abnormal. MPV (test code = 79074-1) 10.2 fL 9.8-13.0 NRBC/100 WBC (test code = 2331217595) 0.0 See_Comment [Automated Doubloon ssage] The system which generated this result transmitted reference range: 0.0 - 10.0 /100 WBCs. The reference range was not used to interpret this result as normal/abnormal. NRBC x10^3 (test code = 3538095553) See_Comment [Automated OpenLabela ge] The system which generated this result transmitted reference range: 10*3/?L. The reference range was not used to interpret this result as normal/abnormal. GRAN MAT (NEUT) % (test code = 770-8) 81.2 % IMM GRAN % (test code = 3396470630) 0.50 % LYMPH % (test code = 736-9) 10.1 % MONO % (test code = 5905-5) 7.5 % EOS % (test code = 713-8) 0.5 % BASO % (test code = 706-2) 0.2 % GRAN MAT x10^3(ANC) (test code = 0800659352) 8.16 10*3/uL 1.99-6.95 H IMM GRAN x10^3 (test code = 1688713759) 0.05 10*3/uL 0.00-0.06 LYMPH x10^3 (test code = 731-0) 1.01 10*3/uL 1.09-3.23 L MONO x10^3 (test code = 742-7) 0.75 10*3/uL 0.36-1.02 EOS x10^3 (test code = 711-2) 0.05 10*3/uL 0.06-0.53 L BASO x10^3 (test code = 704-7) 0.01-0.09 Lab Interpretation (test code = 70556-6) Abnormal [facility] ResourcesTROPONIN [id number] 12:09:33* Test Item Value Reference Range Interpretation Comme nts TROPONIN I (test code = 0001252048) 0.004 ng/mL <=0.034 OMAYRA (test code = [...] of biotin. Lab Interpretation (test code = 06313-4) Normal [facility]MINAL [id number] 12:06:16* Test Item Value Reference Range Interpretation Comme nts NT-proBNP (test code = 4816354713) 135 pg/mL <=125 H OMAYRA (test code = OMAYRA) Biotin has been reported to cause a negative bias, interpret results relative to patient's use of biotin. Lab Interpretation (test code = 41840-4) Abnormal [facility] ResourcesCOMP. Metabolic Panel (29758)2023-01-17 11:57:36* Test Item Value Reference Range Interpretation Comme nts NA (test code = 2227990303) 133 mmol/L 135-145 L K (test code = 0629242661) 5.0 mmol/L 3.5-5.0 CL (test code = 3803002845) 91 mmol/L 98-108 L CO2 TOTAL (test code = 1201784792) 33 mmol/L 23-31 H AGAP (test code = 7047678595) 9 2-16 BUN (test code = 8695707212) 10 mg/dL 7-23 GLUCOSE (test code = 1499658475) 104 mg/dL 70-110 CREATININE (test code = 4405818302) 0.63 mg/dL 0.60-1.25 TOTAL BILI (test code = 4289187623) 1.2 mg/dL 0.1-1.1 H CALCIUM (test code = 1254820008) 9.0 mg/dL 8.6-10.6 T PROTEIN (test code = 9992221066) 6.9 g/dL 6.3-8.2 ALBUMIN (test code = 8415843932) 4.4 g/dL 3.5-5.0 ALK PHOS (test code = 1608377208) 76 U/L 34-122 ALTv (test code = 1742-6) 13 U/L 5-50 AST(SGOT) (test code = 7459817279) 13 U/L 13-40 eGFR (test code = 3431483681) 128.2 mL/min/1.73m2 OMAYRA (test code = OMAYRA) [...] imaging tests). Lab Interpretation (test code = 35716-1) Abnormal [facility] with [id number] 11:30:52* Test Item Value Reference Range Interpretation Comme nts WBC (test code = 6690-2) 9.66 See_Comment [Automated [email or web address]] The system which generated this result transmitted reference range: 4.20 - 10.70 10*3/?L. The reference range was not used to interpret this result as normal/abnormal. RBC (test code = 789-8) 5.00 See_Comment [Automated OpenLabela Pressflip] The system which generated this result transmitted [...] 31.2 g/dL 31.2-35.0 RDW-SD (test code = 10998-7) 56.6 fL 38.5-51.6 H RDW-CV (test code = 788-0) 15.4 % 12.1-15.4 PLT (test code = 777-3) 261 See_Comment [Automated OpenLabela Pressflip] The system which generated this result transmitted reference range: 150 - 328 10*3/?L. The reference range was not used to interpret this result as normal/abnormal. MPV (test code = 25783-9) 10.4 fL 9.8-13.0 NRBC/100 WBC (test code = 9241170054) 0.0 See_Comment [Automated me ssage] The system which generated this result transmitted reference range: 0.0 - 10.0 /100 WBCs. The reference range was not used to interpret this result as normal/abnormal. NRBC x10^3 (test code = 6602110035) See_Comment [Automated messa ge] The system which generated this result transmitted reference range: 10*3/?L. The reference range was not used to interpret this result as normal/abnormal. GRAN MAT (NEUT) % (test code = 770-8) 58.9 % IMM GRAN % (test code = 2954991463) 0.40 % LYMPH % (test code = 736-9) 28.6 % MONO % (test code = 5905-5) 10.5 % EOS % (test code = 713-8) 0.9 % BASO % (test code = 706-2) 0.7 % GRAN MAT x10^3(ANC) (test code = 9855788602) 5.69 10*3/uL 1.99-6.95 IMM GRAN x10^3 (test code = 3894027394) 0.04 10*3/uL 0.00-0.06 LYMPH x10^3 (test code = 731-0) 2.76 10*3/uL 1.09-3.23 MONO x10^3 (test code = 742-7) 1.01 10*3/uL 0.36-1.02 EOS x10^3 (test code = 711-2) 0.09 10*3/uL 0.06-0.53 BASO x10^3 (test code = 704-7) 0.07 10*3/uL 0.01-0.09 Lab Interpretation (test code = 43409-2) Abnormal [facility]MINAL WZS-KWL7458-17-26 10:20:57* Test Item Value Reference Range Interpretation Comme nts NT-proBNP (test code = 4370155716) 473 pg/mL <=125 H OMAYRA (test code = OMAYRA) Biotin has been reported to cause a negative bias, interpret results relative to patient's use of biotin. Lab Interpretation (test code = 11569-0) Abnormal [facility] ResourcesLIPID PANEL (14269)(TOTAL CHOLESTEROL, TRIGLYCERIDES, HDL)2022-12-12 10:18:39* Test Item Value Reference Range Interpretation Comme nts CHOL (test code = 1776366670) 133 mg/dL 120-200 HDL (test code = 0313744527) 38 mg/dL >=40 L HDLC RATIO (test code = 0777698847) 3.5 <=5.0 TRIG (test code = 6317133608) 57 mg/dL 30-170 LDL CHOL (test code = 50832-4) 84 mg/dL <=160 VLDL (test code = 8729552856) 11 mg/dL 5-60 Lab Interpretation (test cod e = 59740-6) Abnormal [facility] ResourcesMAGNESIUM2023-03-26 10:18:19* Test Item Value Reference Range Interpretation Comme nts MAGNESIUM (test code = 3459874247) 2.0 mg/dL 1.7-2.4 Lab Interpretation (test cod e = 79835-1) Normal [facility] (NA, K, CL, CO2, GLUCOSE, BUN, CREATININE, CA)2022-12-12 10:18:14* Test Item Value Reference Range Interpretation Comme nts NA (test code = 4659003271) 130 mmol/L 135-145 L K (test code = 1010473102) 3.7 mmol/L 3.5-5.0 CL (test code = 4071232221) 89 mmol/L 98-108 L CO2 TOTAL (test code = 7051525752) 37 mmol/L 23-31 H AGAP (test code = 5791697067) 4 2-16 BUN (test code = 5651624313) 13 mg/dL 7-23 GLUCOSE (test code = 5243586544) 120 mg/dL 70-110 H CREATININE (test code = 0610549652) 0.56 mg/dL 0.60-1.25 L CALCIUM (test code = 8836648369) 8.3 mg/dL 8.6-10.6 L eGFR (test code = 8832819466) 146.9 mL/min/1.73m2 OMAYRA (test code = OMAYRA) [...] imaging tests). Lab Interpretation (test code = 08618-4) Abnormal [facility] ResourcesETHANOL2023-03-25 00:54:58 ALCOHOL<10mg/dL12/10/2022 7:54 PM [facility]<10 Gxqhymfs36-221 Toxic>100 Depression of EDGERMAN>400 Fatalities ReportedJoint [facility] ResourcesTROPONIN [id number] 00:50:14* Test Item Value Reference Range Interpretation Comme nts TROPONIN I (test code = 8439877997) 0.006 ng/mL <=0.034 OMAYRA (test code = [...] of biotin. Lab Interpretation (test code = 41903-3) Normal [facility] ResourcesN-TERMINAL [id number] 00:47:12* Test Item Value Reference Range Interpretation Comme nts NT-proBNP (test code = 2169073219) 291 pg/mL <=125 H OMAYRA (test code = OMAYRA) Biotin has been reported to cause a negative bias, interpret results relative to patient's use of biotin. Lab Interpretation (test code = 76468-5) Abnormal [facility] ResourcesCOMP[facility] METABOLIC PANEL (17927)2022-12-11 00:41:12* Test Item Value Reference Range Interpretation Comme nts NA (test code = 5259670217) 126 mmol/L 135-145 L K (test code = 6072930695) 4.0 mmol/L 3.5-5.0 CL (test code = 0731347067) 82 mmol/L 98-108 L CO2 TOTAL (test code = 7626189072) 40 mmol/L 23-31 H AGAP (test code = 6716023882) 4 2-16 BUN (test code = 5420950237) 16 mg/dL 7-23 GLUCOSE (test code = 6031537309) 97 mg/dL 70-110 CREATININE (test code = 6408644552) 0.67 mg/dL 0.60-1.25 TOTAL BILI (test code = 7958054214) 0.8 mg/dL 0.1-1.1 CALCIUM (test code = 0923468313) 8.5 mg/dL 8.6-10.6 L T PROTEIN (test code = 3844231554) 5.9 g/dL 6.3-8.2 L ALBUMIN (test code = 7582843217) 3.5 g/dL 3.5-5.0 ALK PHOS (test code = 6002852489) 49 U/L 34-122 ALTv (test code = 1742-6) 18 U/L 5-50 AST(SGOT) (test code = 8314568761) 11 U/L 13-40 L eGFR (test code = 4177721986) 119.4 mL/min/1.73m2 OMAYRA (test code = OMAYRA) [...] imaging tests). Lab Interpretation (test code = 78700-5) Abnormal [facility] WITH [id number] 00:29:08* Test Item Value Reference Range Interpretation Comme nts WBC (test code = 6690-2) 10.15 See_Comment [[email or web address]] The system which generated this result transmitted reference range: 4.20 - 10.70 10*3/?L. The reference range was not used to interpret this result as normal/abnormal. RBC (test code = 789-8) 4.52 See_Comment [[email or web address]] The system which generated this result transmitted [...] 32.8 g/dL 31.2-35.0 RDW-SD (test code = 52909-9) 46.7 fL 38.5-51.6 RDW-CV (test code = 788-0) 13.6 % 12.1-15.4 PLT (test code = 777-3) 263 See_Comment [Automated [employer]] The system which generated this result transmitted reference range: 150 - 328 10*3/?L. The reference range was not used to interpret this result as normal/abnormal. MPV (test code = 36646-9) 9.7 fL 9.8-13.0 L NRBC/100 WBC (test code = 0373084523) 0.0 See_Comment [Automated Doubloon ssage] The system which generated this result transmitted reference range: 0.0 - 10.0 /100 WBCs. The reference range was not used to interpret this result as normal/abnormal. NRBC x10^3 (test code = 6714491701) See_Comment [Automated OpenLabela ge] The system which generated this result transmitted reference range: 10*3/?L. The reference range was not used to interpret this result as normal/abnormal. GRAN MAT (NEUT) % (test code = 770-8) 71.6 % IMM GRAN % (test code = 0359994907) 0.90 % LYMPH % (test code = 736-9) 17.6 % MONO % (test code = 5905-5) 8.7 % EOS % (test code = 713-8) 1.0 % BASO % (test code = 706-2) 0.2 % GRAN MAT x10^3(ANC) (test code = 2109377656) 7.27 10*3/uL 1.99-6.95 H IMM GRAN x10^3 (test code = 5656226534) 0.09 10*3/uL 0.00-0.06 H LYMPH x10^3 (test code = 731-0) 1.79 10*3/uL 1.09-3.23 MONO x10^3 (test code = 742-7) 0.88 10*3/uL 0.36-1.02 EOS x10^3 (test code = 711-2) 0.10 10*3/uL 0.06-0.53 BASO x10^3 (test code = 704-7) 0.01-0.09 Lab Interpretation (test code = 22619-2) Abnormal [facility] ResourcesL[facility] Acid Whole [id number] 00:14:48* Test Item Value Reference Range Interpretation Comme nts LACTIC ACID (test code = 1538351570) 1.30 mmol/L 0.50-2.20 Lab Interpretation (test cod e = 83384-9) Normal [facility] (NA, K, CL, CO2, GLUCOSE, BUN, CREATININE, CA)2022-12-04 11:06:33* Test Item Value Reference Range Interpretation Comme nts NA (test code = 5678919550) 123 mmol/L 135-145 L K (test code = 6329265088) 3.8 mmol/L 3.5-5.0 CL (test code = 0663157984) 86 mmol/L 98-108 L CO2 TOTAL (test code = 6069268733) 36 mmol/L 23-31 H AGAP (test code = 9388953079) 1 2-16 L BUN (test code = 6365946518) 22 mg/dL 7-23 GLUCOSE (test code = 6033581062) 195 mg/dL 70-110 H CREATININE (test code = 2846599394) 0.76 mg/dL 0.60-1.25 CALCIUM (test code = 9654124844) 8.2 mg/dL 8.6-10.6 L eGFR (test code = 9116910356) 103.3 mL/min/1.73m2 OMAYRA (test code = OMAYRA) [...] imaging tests). Lab Interpretation (test code = 45256-7) Abnormal [facility] WITH [id number] 10:54:29* Test Item Value Reference Range Interpretation Comme nts WBC (test code = 6690-2) 8.54 See_Comment [Automated [email or web address]] The system which generated this result transmitted reference range: 4.20 - 10.70 10*3/?L. The reference range was not used to interpret this result as normal/abnormal. RBC (test code = 789-8) 4.17 See_Comment L [Automated [email or web address]] The system which generated this result transmitted [...] 34.1 g/dL 31.2-35.0 RDW-SD (test code = 42842-5) 44.1 fL 38.5-51.6 RDW-CV (test code = 788-0) 13.6 % 12.1-15.4 PLT (test code = 777-3) 247 See_Comment [Automated messa ge] The system which generated this result transmitted reference range: 150 - 328 10*3/?L. The reference range was not used to interpret this result as normal/abnormal. MPV (test code = 71601-8) 9.5 fL 9.8-13.0 L NRBC/100 WBC (test code = 9423778576) 0.0 See_Comment [Automated Dou[employer]oon ssage] The system which generated this result transmitted reference range: 0.0 - 10.0 /100 WBCs. The reference range was not used to interpret this result as normal/abnormal. NRBC x10^3 (test code = 3871502343) See_Comment [Automated messa ge] The system which generated this result transmitted reference range: 10*3/?L. The reference range was not used to interpret this result as normal/abnormal. GRAN MAT (NEUT) % (test code = 770-8) 93.0 % IMM GRAN % (test code = 9073569808) 0.90 % LYMPH % (test code = 736-9) 3.2 % MONO % (test code = 5905-5) 2.9 % EOS % (test code = 713-8) 0.0 % BASO % (test code = 706-2) 0.0 % GRAN MAT x10^3(ANC) (test code = 3863072358) 7.94 10*3/uL 1.99-6.95 H IMM GRAN x10^3 (test code = 1586626228) 0.08 10*3/uL 0.00-0.06 H LYMPH x10^3 (test code = 731-0) 0.27 10*3/uL 1.09-3.23 L MONO x10^3 (test code = 742-7) 0.25 10*3/uL 0.36-1.02 L EOS x10^3 (test code = 711-2) 0.06-0.53 L BASO x10^3 (test code = 704-7) 0.01-0.09 Lab Interpretation (test code = 67468-3) Abnormal [facility] Metabolic Panel (NA, K, CL, CO2, GLUCOSE, BUN, CREATININE, CA)2022-12-03 10:44:53* Test Item Value Reference Range Interpretation Comme nts NA (test code = 9703803781) 126 mmol/L 135-145 L K (test code = 0097530370) 4.0 mmol/L 3.5-5.0 Slight hemolysis CL (test code = 1434231922) 89 mmol/L 98-108 L CO2 TOTAL (test code = 6572749262) 32 mmol/L 23-31 H AGAP (test code = 8894283025) 5 2-16 BUN (test code = 9355913332) 15 mg/dL 7-23 Slight hemolysis GLUCOSE (test code = 1079186259) 115 mg/dL 70-110 H CREATININE (test code = 3789494682) 0.63 mg/dL 0.60-1.25 CALCIUM (test code = 6294281462) 7.7 mg/dL 8.6-10.6 L eGFR (test code = 7326318813) 128.2 mL/min/1.73m2 OMAYRA (test code = OMAYRA) [...] imaging tests). Lab Interpretation (test code = 20980-1) Abnormal [facility] ResourcesMagnesium Vdgrh6687-74-18 10:44:53* Test Item Value Reference Range Interpretation Comme nts MAGNESIUM (test code = 9059019752) 1.6 mg/dL 1.7-2.4 L Lab Interpretation (test cod e = 96009-2) Abnormal [facility] ResourcesCBC with Gpwnhjalwltb1905-96-88 10:39:13* Test Item Value Reference Range Interpretation [...] 33.1 g/dL 31.2-35.0 RDW-SD (test code = 63066-0) 45.4 fL 38.5-51.6 RDW-CV (test code = 788-0) 13.6 % 12.1-15.4 PLT (test code = 777-3) 254 See_Comment [Automated message] The system which generated this result transmitted reference range: 150 - 328 10*3/?L. The reference range was not used to interpret this result as normal/abnormal. MPV (test code = 01616-0) 10.2 fL 9.8-13.0 NRBC/100 WBC (test code = 1490630106) 0.0 See_Comment [Automated message] The system which generated this result transmitted reference range: 0.0 - 10.0 /100 WBCs. The reference range was not used to interpret this result as normal/abnormal. NRBC x10^3 (test code = 0247196273) See_Comment [Automated message] The system which generated this result transmitted reference range: 10*3/?L. The reference range was not used to interpret this result as normal/abnormal. GRAN MAT (NEUT) % (test code = 770-8) 90.0 % IMM GRAN % (test code = 2006955805) 0.90 % LYMPH % (test code = 736-9) 5.9 % MONO % (test code = 5905-5) 2.8 % EOS % (test code = 713-8) 0.2 % BASO % (test code = 706-2) 0.2 % GRAN MAT x10^3(ANC) (test code = 7335898746) 10.27 10*3/uL 1.99-6.95 H IMM GRAN x10^3 (test code = 9454239860) 0.10 10*3/uL 0.00-0.06 H LYMPH x10^3 (test code = 731-0) 0.67 10*3/uL 1.09-3.23 L MONO x10^3 (test code = 742-7) 0.32 10*3/uL 0.36-1.02 L EOS x10^3 (test code = 711-2) 0.06-0.53 L BASO x10^3 (test code = 704-7) 0.01-0.09 Lab Interpretation (test code = 34123-7) Abnormal [facility] METABOLIC PANEL (NA, K, CL, CO2, GLUCOSE, BUN, CREATININE, CA)2022-12-02 06:20:42* Test Item Value Reference Range Interpretation Comme nts NA (test code = 3688931259) 124 mmol/L 135-145 L K (test code = 8655777933) 4.5 mmol/L 3.5-5.0 CL (test code = 8359842762) 78 mmol/L 98-108 L CO2 TOTAL (test code = 8850355137) 37 mmol/L 23-31 H AGAP (test code = 6362212794) 9 2-16 BUN (test code = 9888827323) 14 mg/dL 7-23 GLUCOSE (test code = 2455656694) 93 mg/dL 70-110 CREATININE (test code = 8624544566) 0.71 mg/dL 0.60-1.25 CALCIUM (test code = 6237457753) 9.1 mg/dL 8.6-10.6 eGFR (test code = 7710749070) 111.7 mL/min/1.73m2 OMAYRA (test code = OMAYRA) [...] imaging tests). Lab Interpretation (test code = 72223-6) [id number] 12:22:32* Test Item Value Reference Range Interpretation Comme nts TROPONIN I (test code = 8067997487) 0.008 ng/mL <=0.034 OMAYRA (test code = [...] of biotin. Lab Interpretation (test code = 66195-5) Normal [facility] (NA, K, CL, CO2, GLUCOSE, BUN, CREATININE, CA)2022-12-01 12:11:11* Test Item Value Reference Range Interpretation Comme [facility] NA (test code = 7480239208) 124 mmol/L 135-145 L K (test code = 0039026188) 4.2 mmol/L 3.5-5.0 CL (test code = 9532314165) 79 mmol/L 98-108 L CO2 TOTAL (test code = 2238546223) 37 mmol/L 23-31 H AGAP (test code = 8722424268) 8 2-16 BUN (test code = 1792662829) 16 mg/dL 7-23 GLUCOSE (test code = 4566162786) 105 mg/dL 70-110 CREATININE (test code = 2118824853) 0.67 mg/dL 0.60-1.25 CALCIUM (test code = 3350956221) 8.6 mg/dL 8.6-10.6 eGFR (test code = 8096253828) 119.4 mL/min/1.73m2 OMAYRA (test code = OMAYRA) [...] imaging tests). Lab Interpretation (test code = 76739-5) Abnormal [facility] WITH [id number] 11:59:32* Test Item Value Reference Range Interpretation [...] 32.9 g/dL 31.2-35.0 RDW-SD (test code = 81557-8) 43.8 fL 38.5-51.6 RDW-CV (test code = 788-0) 13.2 % 12.1-15.4 PLT (test code = 777-3) 208 See_Comment [Automated message] The system which generated this result transmitted reference range: 150 - 328 10*3/?L. The reference range was not used to interpret this result as normal/abnormal. MPV (test code = 56582-0) 9.8 fL 9.8-13.0 NRBC/100 WBC (test code = 3507729249) 0.0 See_Comment [Automated message] The system which generated this result transmitted reference range: 0.0 - 10.0 /100 WBCs. The reference range was not used to interpret this result as normal/abnormal. NRBC x10^3 (test code = 2392672713) See_Comment [Automated message] The system which generated this result transmitted reference range: 10*3/?L. The reference range was not used to interpret this result as normal/abnormal. GRAN MAT (NEUT) % (test code = 770-8) 85.9 % IMM GRAN % (test code = 5716764093) 0.50 % LYMPH % (test code = 736-9) 6.8 % MONO % (test code = 5905-5) 6.3 % EOS % (test code = 713-8) 0.3 % BASO % (test code = 706-2) 0.2 % GRAN MAT x10^3(ANC) (test code = 2702713603) 10.44 10*3/uL 1.99-6.95 H IMM GRAN x10^3 (test code = 0067934393) 0.06 10*3/uL 0.00-0.06 LYMPH x10^3 (test code = 731-0) 0.83 10*3/uL 1.09-3.23 L MONO x10^3 (test code = 742-7) 0.77 10*3/uL 0.36-1.02 EOS x10^3 (test code = 711-2) 0.04 10*3/uL 0.06-0.53 L BASO x10^3 (test code = 704-7) 0.03 10*3/uL 0.01-0.09 Lab Interpretation (test code = 88962-5) Abnormal [facility] METABOLIC PANEL (NA, K, CL, CO2, GLUCOSE, BUN, CREATININE, CA)2022-11-28 17:17:23* Test Item Value Reference Range Interpretation Comme nts NA (test code = 0624857318) 120 mmol/L 135-145 L K (test code = 6595513857) 4.3 mmol/L 3.5-5.0 CL (test code = 6562342472) 77 mmol/L 98-108 L CO2 TOTAL (test code = 5231867430) 40 mmol/L 23-31 H AGAP (test code = 4794120194) 3 2-16 BUN (test code = 1505078322) 15 mg/dL 7-23 GLUCOSE (test code = 0553061864) 151 mg/dL 70-110 H CREATININE (test code = 4095733485) 0.63 mg/dL 0.60-1.25 CALCIUM (test code = 5228294822) 8.2 mg/dL 8.6-10.6 L eGFR (test code = 5646918578) 128.2 mL/min/1.73m2 OMAYRA (test code = OMAYRA) [...] imaging tests). Lab Interpretation (test code = 28916-5) Abnormal [facility]MAG[facility]2023-03-12 06:54:10* Test Item Value Reference Range Interpretation Comme nts MAGNESIUM (test code = 4746451815) 1.6 mg/dL 1.7-2.4 L Lab Interpretation (test cod e = 65607-1) Abnormal [facility] (NA, K, CL, CO2, GLUCOSE, BUN, CREATININE, CA)2022-11-28 01:29:53* Test Item Value Reference Range Interpretation Comme nts NA (test code = 3274449443) 120 mmol/L 135-145 L K (test code = 4790767075) 3.9 mmol/L 3.5-5.0 CL (test code = 9865356895) 77 mmol/L 98-108 L CO2 TOTAL (test code = 7328317983) 36 mmol/L 23-31 H AGAP (test code = 7798776799) 7 2-16 BUN (test code = 1150047884) 17 mg/dL 7-23 GLUCOSE (test code = 1630624183) 85 mg/dL 70-110 CREATININE (test code = 9031951838) 0.76 mg/dL 0.60-1.25 CALCIUM (test code = 0978829400) 8.3 mg/dL 8.6-10.6 L eGFR (test code = 3717253307) 103.3 mL/min/1.73m2 OMAYRA (test code = OMAYRA) [...] imaging tests). Lab Interpretation (test code = 44291-0) Abnormal [facility] METABOLIC PANEL (NA, K, CL, CO2, GLUCOSE, BUN, CREATININE, CA)2022-11-27 20:36:26* Test Item Value Reference Range Interpretation Comme nts NA (test code = 4749068553) 122 mmol/L 135-145 L K (test code = 9074021834) 3.9 mmol/L 3.5-5.0 CL (test code = 8666460529) 79 mmol/L 98-108 L CO2 TOTAL (test code = 5724251054) 37 mmol/L 23-31 H AGAP (test code = 7542337920) 6 2-16 BUN (test code = 5236352723) 17 mg/dL 7-23 GLUCOSE (test code = 8761996923) 113 mg/dL 70-110 H CREATININE (test code = 5020478322) 0.78 mg/dL 0.60-1.25 CALCIUM (test code = 8447508718) 7.8 mg/dL 8.6-10.6 L eGFR (test code = 9431489993) 100.2 mL/min/1.73m2 OMAYRA (test code = OMAYRA) [...] imaging tests). Lab Interpretation (test code = 44979-5) Abnormal [facility] ResourcesGLYCOSYLATED HEMOGLOBIN (A1C)2022-11-27 18:21:30* Test Item Value Reference Range Interpretation Comme [facility] HGB A1C (test code = 4548-4) 5.9 % 4.0-5.7 H OMAYRA (test code = OMAYRA) Reference RangesNormal: <5.7%Prediabetes: 5.7 - 6.4%Diabetes: > 6.5% Lab Interpretation (test code = 11824-7) Abnormal [facility] ResourcesTROPONIN [id number] 06:12:58* Test Item Value Reference Range Interpretation Comme nts TROPONIN I (test code = 4691435893) 0.007 ng/mL <=0.034 OMAYRA (test code = [...] of biotin. Lab Interpretation (test code = 68573-0) Normal [facility] ResourcesETHANOL2023-03-11 06:10:43 ALCOHOL<10mg/dL11/27/2022 12:10 AM [facility]<10 Azpmmpop22-898 Toxic>100 Depression of EDGERMAN>400 Fatalities ReportedJoint [facility] between [facility] ResourcesN-TERMINAL [id number]-[id number] 06:09:37* Test Item Value Reference Range Interpretation Comme nts NT-proBNP (test code = 5838219642) 311 pg/mL <=125 H OMAYRA (test code = OMAYRA) Biotin has been reported to cause a negative bias, interpret results relative to patient's use of biotin. Lab Interpretation (test code = 42687-3) Abnormal [facility] ResourcesCOMP[facility] METABOLIC PANEL ([id number])2022-11-27 06:08:02* Test Item Value Reference Range Interpretation Comme nts NA (test code = 7341632749) 116 mmol/L 135-145 LL K (test code = 1843747238) 4.1 mmol/L 3.5-5.0 CL (test code = 1780848409) 75 mmol/L 98-108 L CO2 TOTAL (test code = 8454235632) 34 mmol/L 23-31 H AGAP (test code = 7645826487) 7 2-16 BUN (test code = 9571413927) 16 mg/dL 7-23 GLUCOSE (test code = 1498135311) 70 mg/dL 70-110 CREATININE (test code = 9282391449) 0.62 mg/dL 0.60-1.25 TOTAL BILI (test code = 4478134727) 1.2 mg/dL 0.1-1.1 H CALCIUM (test code = 4541445737) 8.1 mg/dL 8.6-10.6 L T PROTEIN (test code = 6986394260) 6.3 g/dL 6.3-8.2 ALBUMIN (test code = 5585453595) 3.8 g/dL 3.5-5.0 ALK PHOS (test code = 8189837483) 58 U/L 34-122 ALTv (test code = 1742-6) 15 U/L 5-50 AST(SGOT) (test code = 8101538540) 13 U/L 13-40 eGFR (test code = 1563709204) 130.6 mL/min/1.73m2 OMAYRA (test code = OMAYRA) [...] imaging tests). Lab Interpretation (test code = 30612-6) Abnormal [facility] WITH [id number] 05:45:18* Test Item Value Reference Range Interpretation Comme nts WBC (test code = 6690-2) 9.18 See_Comment [Automated messa ge] The system which [...] 34.8 g/dL 31.2-35.0 RDW-SD (test code = 18209-3) 40.1 fL 38.5-51.6 RDW-CV (test code = 788-0) 12.6 % 12.1-15.4 PLT (test code = 777-3) 216 See_Comment [Automated messa ge] The system which generated this result transmitted reference range: 150 - 328 10*3/?L. The reference range was not used to interpret this result as normal/abnormal. MPV (test code = 12490-2) 9.4 fL 9.8-13.0 L NRBC/100 WBC (test code = 1687031381) 0.0 See_Comment [Automated [employer] ssage] The system which generated this result transmitted reference range: 0.0 - 10.0 /100 WBCs. The reference range was not used to interpret this result as normal/abnormal. NRBC x10^3 (test code = 9902004192) See_Comment [Automated messa ge] The system which generated this result transmitted reference range: 10*3/?L. The reference range was not used to interpret this result as normal/abnormal. GRAN MAT (NEUT) % (test code = 770-8) 79.1 % IMM GRAN % (test code = 1894156995) 0.90 % LYMPH % (test code = 736-9) 11.8 % MONO % (test code = 5905-5) 6.8 % EOS % (test code = 713-8) 1.2 % BASO % (test code = 706-2) 0.2 % GRAN MAT x10^3(ANC) (test code = 2638344749) 7.27 10*3/uL 1.99-6.95 H IMM GRAN x10^3 (test code = 0288864341) 0.08 10*3/uL 0.00-0.06 H LYMPH x10^3 (test code = 731-0) 1.08 10*3/uL 1.09-3.23 L MONO x10^3 (test code = 742-7) 0.62 10*3/uL 0.36-1.02 EOS x10^3 (test code = 711-2) 0.11 10*3/uL 0.06-0.53 BASO x10^3 (test code = 704-7) 0.01-0.09 Lab Interpretation (test code = 74611-2) Abnormal [facility]MINAL MGF-[id number] 09:49:54* Test Item Value Reference Range Interpretation Comme nts NT-proBNP (test code = 2183227043) 294 pg/mL <=125 H OMAYRA (test code = OMAYRA) Biotin has been reported to cause a negative bias, interpret results relative to patient's use of biotin. Lab Interpretation (test code = 07824-1) Abnormal [facility] ResourcesCOMP[facility] METABOLIC PANEL ([id number])2022-11-19 09:41:52* Test Item Value Reference Range Interpretation Comme nts NA (test code = 6058136793) 120 mmol/L 135-145 L K (test code = 2828607012) 4.4 mmol/L 3.5-5.0 CL (test code = 2581770052) 80 mmol/L 98-108 L CO2 TOTAL (test code = 1709942560) 34 mmol/L 23-31 H AGAP (test code = 5948812804) 6 2-16 BUN (test code = 4028608787) 10 mg/dL 7-23 GLUCOSE (test code = 5626522525) 93 mg/dL 70-110 CREATININE (test code = 9826154837) 0.77 mg/dL 0.60-1.25 TOTAL BILI (test code = 8848585899) 1.1 mg/dL 0.1-1.1 CALCIUM (test code = 1141198532) 8.7 mg/dL 8.6-10.6 T PROTEIN (test code = 5102482145) 6.9 g/dL 6.3-8.2 ALBUMIN (test code = 9800891592) 4.1 g/dL 3.5-5.0 ALK PHOS (test code = 5142298737) 60 U/L 34-122 ALTv (test code = 1742-6) 14 U/L 5-50 AST(SGOT) (test code = 6524150790) 13 U/L 13-40 eGFR (test code = 7448301082) 101.7 mL/min/1.73m2 OMAYRA (test code = OMAYRA) [...] imaging tests). Lab Interpretation (test code = 73640-7) Abnormal [facility] WITH [id number] 09:02:29* Test Item Value Reference Range Interpretation [...] 33.7 g/dL 31.2-35.0 RDW-SD (test code = 90772-5) 42.3 fL 38.5-51.6 RDW-CV (test code = 788-0) 12.9 % 12.1-15.4 PLT (test code = 777-3) 252 See_Comment [Automated OpenLabela ge] The system which generated this result transmitted reference range: 150 - 328 10*3/?L. The reference range was not used to interpret this result as normal/abnormal. MPV (test code = 99974-3) 9.6 fL 9.8-13.0 L NRBC/100 WBC (test code = 2392138363) 0.0 See_Comment [Automated [employer] ssage] The system which generated this result transmitted reference range: 0.0 - 10.0 /100 WBCs. The reference range was not used to interpret this result as normal/abnormal. NRBC x10^3 (test code = 5421612940) See_Comment [Automated messa ge] The system which generated this result transmitted reference range: 10*3/?L. The reference range was not used to interpret this result as normal/abnormal. GRAN MAT (NEUT) % (test code = 770-8) 70.7 % IMM GRAN % (test code = 8094188135) 1.00 % LYMPH % (test code = 736-9) 16.0 % MONO % (test code = 5905-5) 10.5 % EOS % (test code = 713-8) 1.3 % BASO % (test code = 706-2) 0.5 % GRAN MAT x10^3(ANC) (test code = 2931083346) 5.87 10*3/uL 1.99-6.95 IMM GRAN x10^3 (test code = 5155958630) 0.08 10*3/uL 0.00-0.06 H LYMPH x10^3 (test code = 731-0) 1.33 10*3/uL 1.09-3.23 MONO x10^3 (test code = 742-7) 0.87 10*3/uL 0.36-1.02 EOS x10^3 (test code = 711-2) 0.11 10*3/uL 0.06-0.53 BASO x10^3 (test code = 704-7) 0.04 10*3/uL 0.01-0.09 Lab Interpretation (test code = 89981-1) Abnormal [facility] METABOLIC PANEL (NA, K, CL, CO2, GLUCOSE, BUN, CREATININE, CA)2022-11-10 23:42:55* Test Item Value Reference Range Interpretation Comme nts NA (test code = 9304554048) 121 mmol/L 135-145 L K (test code = 4338373780) 4.7 mmol/L 3.5-5.0 CL (test code = 8951654658) 82 mmol/L 98-108 L CO2 TOTAL (test code = 5988159675) 34 mmol/L 23-31 H AGAP (test code = 4213490146) 5 2-16 BUN (test code = 1914528376) 15 mg/dL 7-23 GLUCOSE (test code = 4595434193) 120 mg/dL 70-110 H CREATININE (test code = 3464156515) 0.75 mg/dL 0.60-1.25 CALCIUM (test code = 1291507501) 7.7 mg/dL 8.6-10.6 L eGFR (test code = 6947982025) 104.8 mL/min/1.73m2 OMAYRA (test code = OMAYRA) [...] imaging tests). Lab Interpretation (test code = 56481-4) [facility]normal [facility] (NA, K, CL, CO2, GLUCOSE, BUN, CREATININE, CA)2022-11-10 17:59:59* Test Item Value Reference Range Interpretation Comme nts NA (test code = 2359563141) 121 mmol/L 135-145 L K (test code = 8796169139) 4.3 mmol/L 3.5-5.0 CL (test code = 8273289628) 81 mmol/L 98-108 L CO2 TOTAL (test code = 1906498770) 38 mmol/L 23-31 H AGAP (test code = 0949942951) 2 2-16 BUN (test code = 2495772995) 15 mg/dL 7-23 GLUCOSE (test code = 4563085694) 113 mg/dL 70-110 H CREATININE (test code = 4374213183) 0.74 mg/dL 0.60-1.25 CALCIUM (test code = 6492270840) 7.5 mg/dL 8.6-10.6 L eGFR (test code = 5951108839) 106.5 mL/min/1.73m2 OMAYRA (test code = OMAYRA) [...] imaging tests). Lab Interpretation (test code = 25002-6) [facility]normal [facility] [id number] 13:08:23* Test Item Value Reference Range Interpretation Comme nts NT-proBNP (test code = 4046448313) 177 pg/mL <=125 H OMAYRA (test code = OMAYRA) Biotin has been reported to cause a negative bias, interpret results relative to patient's use of biotin. Lab Interpretation (test code = 54357-1) Abnormal [facility] [id number] 08:23:33* Test Item Value Reference Range Interpretation Comme nts TROPONIN I (test code = 7832064618) 0.004 ng/mL <=0.034 OMAYRA (test code = [...] of biotin. Lab Interpretation (test code = 24187-8) Normal [facility] METABOLIC PANEL ([id number])2022-11-09 08:12:09* Test Item Value Reference Range Interpretation Comme nts NA (test code = 1336364315) 123 mmol/L 135-145 L K (test code = 4737606151) 4.2 mmol/L 3.5-5.0 CL (test code = 3626405142) 78 mmol/L 98-108 L CO2 TOTAL (test code = 1930830640) 34 mmol/L 23-31 H AGAP (test code = 6946518274) 11 2-16 BUN (test code = 1420266087) 8 mg/dL 7-23 GLUCOSE (test code = 5266385672) 113 mg/dL 70-110 H CREATININE (test code = 0758590715) 0.87 mg/dL 0.60-1.25 TOTAL BILI (test code = 2052272140) 1.2 mg/dL 0.1-1.1 H CALCIUM (test code = 6655960523) 8.8 mg/dL 8.6-10.6 T PROTEIN (test code = 4657559167) 7.6 g/dL 6.3-8.2 ALBUMIN (test code = 0347769256) 4.5 g/dL 3.5-5.0 ALK PHOS (test code = 4445715536) 72 U/L 34-122 ALTv (test code = 1742-6) 13 U/L 5-50 AST(SGOT) (test code = 0157589598) 13 U/L 13-40 eGFR (test code = 7722542937) 88.3 mL/min/1.73m2 OMAYRA (test code = OMAYRA) [...] imaging tests). Lab Interpretation (test code = 37609-5) Abnormal [facility], [id number] 08:11:14* Test Item Value Reference Range Interpretation Comme nts LIPASE (test code = 0705989022) 108 U/L 0-220 Lab Interpretation (test cod e = 25072-5) Normal [facility]CB WITH [id number] 07:59:28* Test Item Value Reference Range Interpretation Comme nts WBC (test code = 6690-2) 8.95 See_Comment [Automated messa ge] The system which generated this result transmitted reference range: 4.20 - 10.70 10*3/?L. The reference range was not used to interpret this result as normal/abnormal. RBC (test code = 789-8) 5.07 See_Comment [Automated OpenLabela ge] The system which generated this result [...] 32.8 g/dL 31.2-35.0 RDW-SD (test code = 27185-3) 41.1 fL 38.5-51.6 RDW-CV (test code = 788-0) 12.5 % 12.1-15.4 PLT (test code = 777-3) 235 See_Comment [Automated OpenLabela ge] The system which generated this result transmitted reference range: 150 - 328 10*3/?L. The reference range was not used to interpret this result as normal/abnormal. MPV (test code = 11874-1) 9.8 fL 9.8-13.0 NRBC/100 WBC (test code = 4955597946) 0.0 See_Comment [Automated me ssage] The system which generated this result transmitted reference range: 0.0 - 10.0 /100 WBCs. The reference range was not used to interpret this result as normal/abnormal. NRBC x10^3 (test code = 6680242692) See_Comment [Automated me ssage] The system which generated this result transmitted reference range: 10*3/?L. The reference range was not used to interpret this result as normal/abnormal. GRAN MAT (NEUT) % (test code = 770-8) 56.9 % IMM GRAN % (test code = 8282481439) 0.40 % LYMPH % (test code = 736-9) 29.4 % MONO % (test code = 5905-5) 9.5 % EOS % (test code = 713-8) 3.0 % BASO % (test code = 706-2) 0.8 % GRAN MAT x10^3(ANC) (test code = 4716598478) 5.09 10*3/uL 1.99-6.95 IMM GRAN x10^3 (test code = 2842301577) 0.04 10*3/uL 0.00-0.06 LYMPH x10^3 (test code = 731-0) 2.63 10*3/uL 1.09-3.23 MONO x10^3 (test code = 742-7) 0.85 10*3/uL 0.36-1.02 EOS x10^3 (test code = 711-2) 0.27 10*3/uL 0.06-0.53 BASO x10^3 (test code = 704-7) 0.07 10*3/uL 0.01-0.09 [facility] URINALYSIS, AZIMIHDGVH1726-82-70 19:05:00 * Test Item Value Reference Range [...] U APPEAR (test code = 3267) clear [facility] URINALYSIS, SSHMSGSIOA6353-20-97 19:05:00 * Test Item Value Reference Range [...] U APPEAR (test code = 3267) clear [facility] URINALYSIS, XTLMUYZIWJ5263-18-98 19:05:00 * Test Item Value Reference Range [...] code = 3267) clear [facility] ABDOMEN PELVIS W TTLAUASS5527-77-17 17:53:531. ?No hydronephrosis or nephrolithiasis. 2. ?Mild [...] hernia with mild circumferential distalesophageal thickening (2:16). Hurlock density within the distal stomach andat the [...] hernia with mild circumferential distalesophageal thickening (2:16). Hurlock density within the distal stomach andat the [...] small right hydrocele.5. Additional findings as above. [facility] ResourcesUrinalysis2021-03-26 17:37:38* Test Item Value Reference Range Interpretation Comme nts APPEARANCE (test code = 6176987366) Cloudy Clear A COLOR (test code = 5574104918) Red Yellow A PH (test code = 0922185878) 4.8-8.0 SP GRAVITY (test code = 5997488407) 1.003-1.030 GLU U QUAL (test code = 3825034291) 50 mg/dL Normal A BLOOD (test code = 5930192627) 3+ Negative A KETONES (test code = 1466248445) Negative Negative PROTEIN (test code = 2887-8) 100 mg/dL Negative A UROBILIN (test code = 7109348908) Normal Normal BILIRUBIN (test code = 0144840931) Negative Negative NITRITE (test code = 5594811434) Negative Negative LEUK DIANELYS (test code = 6506151323) Negative Negative RBC/HPF (test code = 3463390165) >182 See_Comment H [Automated messa ge] The system which generated this result transmitted reference range: 0 - 3 HPF. The reference range was not used to interpret this result as normal/abnormal. WBC/HPF (test code = 8896903452) >182 See_Comment H [Automated messa ge] The system which generated this result transmitted reference range: 0 - 5 HPF. The reference range was not used to interpret this result as normal/abnormal. BACTERIA (test code = 2200004395) Moderate Negative A WBC CLUMPS (test code = 5505307577) See_Comment H [Automated messa ge] The system which generated this result transmitted reference range: <=1 HPF. The reference range was not used to interpret this result as normal/abnormal. Lab Interpretation (test code = 26163-6) Abnormal [facility] (NA, K, CL, CO2, GLUCOSE, BUN, CREATININE, CA)2020-12-12 17:13:57* Test Item Value Reference Range Interpretation Comme nts NA (test code = 9136385146) 140 mmol/L 135-145 K (test code = 3598614630) 4.5 mmol/L 3.5-5.0 CL (test code = 9678593368) 100 mmol/L 98-108 CO2 TOTAL (test code = 6825538643) 35 mmol/L 23-31 H AGAP (test code = 2478601757) 2-16 BUN (test code = 3752223967) 25 mg/dL 7-23 H GLUCOSE (test code = 9396291112) 114 mg/dL 70-110 H CREATININE (test code = 6254814268) 1.18 mg/dL 0.60-1.25 CALCIUM (test code = 3195998494) 9.0 mg/dL 8.6-10.6 eGFR Calculation (Non-) (test code = 1180825720) mL/min/1.73m2 eGFR Calculation () (test code = 9150917329) mL/min/1.73m2 OMAYRA (test code = OMAYRA) Association [...] imaging tests). Lab Interpretation (test code = 55490-7) Abnormal [facility] with Ghsbsclscnrp8381-77-39 16:56:10* Test Item Value Reference Range Interpretation Comme nts WBC (test code = 6690-2) See_Comment [Automated messa ge] The system which generated this result transmitted reference range: 4.20 - 10.70 10*3/?L. The reference range was not used to interpret this result as normal/abnormal. RBC (test code = 789-8) See_Comment [Automated OpenLabela ge] The system which generated this result [...] 32.8 g/dL 31.2-35.0 RDW-SD (test code = 92216-4) 42.9 fL 38.5-51.6 RDW-CV (test code = 788-0) 11.9 % 12.1-15.4 L PLT (test code = 777-3) See_Comment [Automated OpenLabela ge] The system which generated this result transmitted reference range: 150 - 328 10*3/?L. The reference range was not used to interpret this result as normal/abnormal. MPV (test code = 42807-8) 10.8 fL 9.8-13.0 NRBC/100 WBC (test code = 3637687892) See_Comment [Automated Doubloon ssage] The system which generated this result transmitted reference range: 0.0 - 10.0 /100 WBCs. The reference range was not used to interpret this result as normal/abnormal. NRBC x10^3 (test code = 9362498364) <0.01 See_Comment [Automated OpenLabela ge] The system which generated this result transmitted reference range: 10*3/?L. The reference range was not used to interpret this result as normal/abnormal. GRAN MAT (NEUT) % (test code = 770-8) 63.5 % IMM GRAN % (test code = 0489031570) 0.40 % LYMPH % (test code = 736-9) 23.9 % MONO % (test code = 5905-5) 6.7 % EOS % (test code = 713-8) 4.3 % BASO % (test code = 706-2) 1.2 % GRAN MAT x10^3(ANC) (test code = 0537052445) 4.27 10*3/uL 1.99-6.95 IMM GRAN x10^3 (test code = 8210348138) 0.03 10*3/uL 0.00-0.06 LYMPH x10^3 (test code = 731-0) 1.61 10*3/uL 1.09-3.23 MONO x10^3 (test code = 742-7) 0.45 10*3/uL 0.36-1.02 EOS x10^3 (test code = 711-2) 0.29 10*3/uL 0.06-0.53 BASO x10^3 (test code = 704-7) 0.08 10*3/uL 0.01-0.09 Lab Interpretation (test code = 27259-3) Abnormal [facility] URINALYSIS, JLAIBXDEZN1788-97-07 18:56:00 * Test Item Value Reference Range [...] turbid Lab Interpretation (test cod e = 39647-8) Abnormal [facility] URINALYSIS, JJOATFGEVZ6426-04-59 18:56:00 * Test Item Value Reference Range [...] turbid Lab Interpretation (test cod e = 99269-9) Abnormal [facility]- XR CHEST 4M5613-98-58 16:22:00Patient Name: THIERRY MONGE Unit No: [id number] EXAMS: CPT CODE: [id number] XR CHEST 1V 47007 EXAMINATION: - XR CHEST 1V. LOCATION: B2. HISTORY: S/P ICD. COMPARISON: None. TECHNIQUE: Single AP view of the chest was obtained. FINDINGS: The right lung apex is excluded from the sgdpz-gi-ekze. The heart is normal in size. Left AICD device is present. The lungs are clear. No acute osseous abnormality is identified. IMPRESSION: The right lung apex is excluded from the guxxn-pt-mhrk. No acute cardiopulmonary abnormality is identified. at 1622 Reported and signed by: Latanya Marshall MD CC: Tyrell Mckeon Technologist: JOSELYN Mathews, RT(R) Transcrpt Date/Tm/Trnsp: 06/19/2020 (1622) tBELINDAR.PR7 Orig Print D/T: S: 06/19/2020 (1621) [facility] NAME: THIERRY MONGE [address] PHYS: [place] [address] : 1960 AGE: 59 SEX: M LOC: Georgi Deshpande PHONE #: [phone] EXAM DATE: 06/19/2020 STATUS: ADM IN FAX #: [phone] RADIOLOGY NO: PAGE 1 Signed ReportBASIC METABOLIC VAZJJ5958-47-11 13:17:00* Test Item Value Reference Range Interpretation [...] code = CA) MG/DL 8.7-9.7 Comments to Foreclosure Field Inspector: NURSE WILL BRING SPECIMEN TO LABIs this a LINE draw? N DIDTZCRBB8101-78-14 13:17:00* Test Item Value Reference Range Interpretation Comme nts MAGNESIUM (test code = MAG) MG/DL 1.6-2.3 Comments to Foreclosure Field Inspector: NURSE WILL BRING SPECIMEN TO LABIs this a LINE draw? N BASIC METABOLIC MYOIL8991-05-22 13:17:00* Test Item Value Reference Range Interpretation [...] CA) 9.1 MG/DL 8.4-10.2 N Comments to Foreclosure Field Inspector: NURSE WILL BRING SPECIMEN TO LABIs this a LINE draw? N DAFXPZQVR1194-21-92 13:17:00* Test Item Value Reference Range Interpretation Comme nts MAGNESIUM (test code = MAG) 2.2 MG/DL 1.6-2.3 N Comments to Foreclosure Field Inspector: NURSE WILL BRING SPECIMEN TO LABIs this a LINE draw? N BASIC METABOLIC TGELG5723-30-40 13:16:00* Test Item Value Reference Range Interpretation [...] code = CA) MG/DL 8.7-9.7 Comments to Foreclosure Field Inspector: NURSE WILL BRING SPECIMEN TO LABIs this a LINE draw? N EFQKXLCZV2573-46-55 13:16:00* Test Item Value Reference Range Interpretation Comme nts MAGNESIUM (test code = MAG) MG/DL 1.6-2.3 Comments to Foreclosure Field Inspector: NURSE WILL BRING SPECIMEN TO LABIs this a LINE draw? N BASIC METABOLIC YOUCW5075-54-50 13:14:00* Test Item Value Reference Range Interpretation [...] code = CA) MG/DL 8.7-9.7 Comments to Foreclosure Field Inspector: NURSE WILL BRING SPECIMEN TO LABIs this a LINE draw? N GNZSRQGZI7452-74-09 13:14:00* Test Item Value Reference Range Interpretation Comme nts MAGNESIUM (test code = MAG) MG/DL 1.6-2.3 Comments to Foreclosure Field Inspector: NURSE WILL BRING SPECIMEN TO LABIs this a LINE draw? N BASIC METABOLIC CGYUS6852-44-46 13:13:00* Test Item Value Reference Range Interpretation [...] code = CA) MG/DL 8.7-9.7 Comments to Foreclosure Field Inspector: NURSE WILL BRING SPECIMEN TO LABIs this a LINE draw? N PUKKEOPEQ5461-67-47 13:13:00* Test Item Value Reference Range Interpretation Comme nts MAGNESIUM (test code = MAG) MG/DL 1.6-2.3 Comments to Foreclosure Field Inspector: NURSE WILL BRING SPECIMEN TO LABIs this a LINE draw? N PROTHROMBIN TLNS0169-47-51 13:08:00* Test Item Value Reference Range Interpretation [...] systemic embolism. 3.0 - 4.5 Comments to Foreclosure Field Inspector: NURSE WILL BRING SPECIMEN TO LABPTT ACTIVATED 2020-06-19 13:08:00* Test Item Value Reference Range Interpretation Comme nts PTT ACTIVATED (test code = APTT) 30.8 SECONDS 25.1-36.5 N Comments to Foreclosure Field Inspector: NURSE WILL BRING SPECIMEN TO LABCBC W/AUTO [...] NRBC#) 0.00 K/mm3 0.0-0.1 N Comments to Foreclosure Field Inspector: NURSE WILL BRING SPECIMEN TO LABIs this a LINE draw? N COVID 19 Asymptomatic IH VS5573-13-62 12:14:00* Test Item Value Reference Range Interpretation [...] Notes Date/Time Note Provider Source 2023-03-20 00:11:00 [id number] fXZME+k1ls+7i4uwyTQxR4KHaCcql XVe588cpJlr1yiFDlks41x9NTaJ9042-75-24S51:11:00 [facility] ([facility])Hospitalist Discharge SummaryREPORT#:[id number] REPORT STATUS: SignedDATE:03/20/23 TIME: 001 PATIENT: THIERRY MONGE UNIT #: [id number]#: [id number] [facility] [birth year] AGE: 62 SEX: M ATTEND: Rudy Xiao [facility] AUTHOR: Rudy Xiao MD * [...] combative without cigarette smoking or nicotine patches.PLAN- Auto Brake Mechanic on cessation- Cont. nicotine patch PATIENT HAS [...] combative without cigarette smoking or nicotine patches.PLAN- Auto Brake Mechanic on cessation- Cont. nicotine patch Code Status: [...] BEDTIME. Comments: #30 - SIG Obtained From [facility] MEMANTINE (NAMENDA) 5 MG TAB 5 MILLIGRAM ORAL DAILY. Comments: #90 - SIG Obtained From [facility] RIVAROXABAN (XARELTO) 15 MG TAB 15 MILLIGRAM ORAL DAILY. Comments: #30 - SIG Obtained From [facility] CARVEDILOL (COREG) 3.125 MG TAB 3.125 MILLIGRAM [...] no edemaMusculoskeletal: normal inspection, painless range of motionNeuro/EDGERMAN: alert, normal speechSkin: dryPsychiatry: abnl judgment/insight, normal affect, normal mood, no hallucinations ResultsFindings/Data:Laboratory Tests: 03/19 03/19 1121 0733 Chemistry POC Glucose (60 - 99 MG/DL) 112 H 170 H Results: MRI results reviewed Discharge Instructions PCPDischarge to: Home/Self CareAdditional Discharge Routines: PCP Follow-Up, Claims Support Specialist Follow-UpDiet: Cardiac Follow-up AppointmentsPCP follow-up: PCP: Undefined [...] 25 or < 18.5BMI status/follow-up: nml BMI,no senior counsel needed at 0016 RPT #:[id number] OF REPORTDSDischarge cvzhmyl6888-86-75O60:11:00Z.AKFV84107552-7993NWRd ailable for patient eswmZXVPRRPOKAFEAM0352-27-49T38:16:42 [facility] 2023-03-19 12:19:00 [id number] kg0YI9c6XbOQP/7TJlaQEbNd+HsGV jj5y8G0GsrUSBBUqnMTZPS7+B1c7508-53-25L73:19:00 [facility] ([facility] Progress NoteREPORT#:[id number] REPORT STATUS: SignedDATE:03/19/23 TIME: 1219 PATIENT: THIERRY MONGE UNIT #: [id number]#: [id number] [facility] [birth year] AGE: 62 SEX: M ATTEND: Rudy [...] Mean Ox Delivery Rate 03/19 1123 97.5 07/01 1000 93 8 138/69 97 100 07/01 0900 81 19 130/66 92 99 07/01 0800 Nasal 2 cannula / 0800 96 18 129/63 90 96 07/ 0735 97.7 07/ 0718 99 Nasal 5 40 cannula / 0701 122 29 160/72 104 95 07/01 [...] LE assessment: no edemaMusculoskeletal: full range of motionNeuro/EDGERMAN: alert, oriented X 3, CN II-XII intactSkin: [...] with Dr. Tenorio as outpatient. at 1002 RPT #:[id number] OF REPORTPRProgress wixz7425-72-31H40:19:00Z.AWYF80390172-1045NRJxpof able for patient peetLVHVTUREROUELU1135-86-97D32:02:48 [facility] 2023-03-18 15:47:00 [id number] LEr6bfNorrGwrQk4sKgW9N4mWBPFo hQ+mVTyFAJm24PPNeQZgNrL2ZMe1960N65:47:08551 0-0012 [facility] [address] [place] [address] PATIENT NAME: THIERRY MONGE ADMIT DATE: 03/15/23ACCOUNT NO: [id number] [facility] AGE: 62 REPORT TYPE: ECHOCARDIOGRAM SEX: M ADMITTING PHYSICIAN:Rudy Xiao MD ATTENDING PHYSICIAN:Rudy Xiao MD *[facility]*[address] [place], [place] [id number] Transthoracic Echocardiogram Patient: Ania Mongeuddeepa Date: 03/18/2023 BP: 122 / 66 Location: [facility]: [id number] : 1960 Age: 62 Height: 70 in / 177.8 cmAccession#: [id number] Gender: M Weight: 149.7 lb / 68 kgBMI/BSA: 21.5 kg/m 2 / 1.83 m 2 *Ordering Physician: * Omid Tenorio MD *Interpreting Physician: Omid Cowan MD*Perinatal Nurse: Vick Galdamez Indications: CAD. Study data: Transthoracic echocardiogram. Procedure: Transthoracicechocardiography was performed. Images were obtained using a [employer] cardiacultrasound machine. Image quality was adequate. M-mode, [...] 2.46 m/sec --------- Pulmonic valve Value Ref OH v, ED 0.94 m/sec --------- Aortic root [...] at 1547 PATIENT NAME: THIERRY MONGE :47:0 0Z.CWJ80824292-8687JHTgkhzsvhw for patient mttpNBTYQKPJBPOABK5028-98-20M64:48:19 [facility] 2023-03-18 10:16:00 [id number] QNA7Yb9Q4EaAtS3aKzUiY0kyXk6Ff v2vlTBl0JMx5uGR6T2xppmScDzH2589-64-44Y92:16:00 [facility] Progress NoteREPORT#:[id number] REPORT STATUS: SignedDATE:03/18/23 TIME: 1016 PATIENT: THIERRY MONGE UNIT #: [id number]#: [id number] [facility] [birth year] AGE: 62 SEX: M ATTEND: Rudy Xiao MDA AUTHOR: Jenny Meyers MD R2 * ALL edits or amendments must be made on the electronic/computer document * Jenny Meyers 03/18/23 1016:SubjectiveChief complaint:SOB, hypotensionHPI:62 yo M with PMH of COPD on 2L NC, Hypertension, Anxiety, Systolic CHF s/p AICD,Afib on xarelto, CVA and dementia presented as a transfer from [facility] for evaluation of shortness of breath. Pt [...] no edemaMusculoskeletal: normal inspection, painless range of motionNeuro/EDGERMAN: alert, normal speechSkin: dryPsychiatry: abnl judgment/insight, normal [...] combative without cigarette smoking or nicotine patches.PLAN- Auto Brake Mechanic on cessation- Cont. nicotine patch Code Status: Full CodeVTE Ppx: RivaroxibanDiet: Cardiac Quality: Gen Med Crit Care VTE ProphylaxisVTE prophylaxis initiated: yes (rivaroxiban) Current MedicationsCurrent medication review:I attest that the foregoing medication list in the medical record is true, accurate, and complete to the best of my knowledge. BMI Screening > 25 or < 18.5BMI status/follow-up: nml BMI,no senior counsel needed AttestationsAttestation needed: teaching physician Rudy Xiao 03/18/23 1743:Attestations Teaching Physician AttestationF/U visit w/ resident:I saw the patient with the resident and . . . agree with the resident's findings and plan.echo unremarkableawait aicd interrogationdvt ppx: on xarelto at 1023 at 1743 RPT #:[id number] OF REPORTPRProgress wmzv3275-77-49R27:16:00Z.OSJJ80671433-8736SOIghvc able for patient weylFUVEFQKMCHEHZW4635-94-75S40:23:27 [facility] 2023-03-18 06:54:00 [id number] PGObUuPuO8MX5Q2RZemw6KmivzLRj ts2UPcW3O9rhQm4i1LKD6UVsrv91427-90-68G17:54:00 [facility] ([facility]DC[facility] Progress NoteREPORT#:[id number] REPORT STATUS: SignedDATE:03/18/23 TIME: 653 PATIENT: THIERRY MONGE UNIT #: [id number]#: [id number] [facility] [birth year] AGE: 62 SEX: M ATTEND: Rudy Xiao [facility] AUTHOR: Tyrell Mckeon MD * [...] LE assessment: no edemaMusculoskeletal: full range of motionNeuro/EDGERMAN: alert, oriented X 3, CN II-XII intactSkin: dry, intactPsychiatry: normal affect, normal judgment/insight, normal mood Diagnosis, Assessment Plan Free Text DxA P NotesFree Text DxA P Notes:IMPRESSION:1. Chronic systolic heart failure.2. Status post Serrano automated implantable cardioverter defibrillator.3. Dyspnea.4. Coronary artery disease.5. Hypertension.6. Dyslipidemia. RECOMMENDATIONS: Continue current medical therapy. Oxygen support as needed. at 1220 RPT #:[id number] OF REPORTPRProgress tkxz3916-95-05Z95:54:00Z.QJYP85792936-6175VDAhots able for patient shbkIGEACXCTTPPMDO0765-61-19E86:20:55 [facility] 2023-03-17 13:48:00 [id number]/IHQmu0 bOpGx4v3FewzM1EobS97gh+AqZezo RskEfKNDLZeyOmGzS1Ranvr1ywk1026-18-36C30:48:00 [facility] ClinicHospital[facility] Progress NoteREPORT#:[id number] REPORT STATUS: SignedDATE:03/17/23 TIME: 134 PATIENT: THIERRY MONGE UNIT #: [id number]#: [id number] [facility] [birth year] AGE: 62 SEX: M ATTEND: Rudy Xiao AUTHOR: Jenny Meyers MD R2 * ALL edits or amendments must be made on the electronic/computer document * Jenny Meyers 03/17/23 1348:SubjectiveChief complaint:SOB, hypotensionHPI:62 yo M with PMH of COPD on 2L NC, Hypertension, Anxiety, Systolic CHF s/p AICD,Afib on xarelto, CVA and dementia presented as a transfer from [facility] for evaluation of shortness of breath. Pt [...] no cyanosisMusculoskeletal: normal inspection, painless range of motionNeuro/EDGERMAN: alert, oriented X 3, normal speechSkin: dryPsychiatry: [...] combative without cigarette smoking or nicotine patches.PLAN- Auto Brake Mechanic on cessation- Cont. nicotine patch Code Status: Full CodeVTE Ppx: RivaroxibanDiet: Cardiac Quality: Gen Med Crit Care VTE ProphylaxisVTE prophylaxis initiated: yes (rivaroxiban) Current MedicationsCurrent medication review:I attest that the foregoing medication list in the medical record is true, accurate, and complete to the best of my knowledge. BMI Screening > 25 or < 18.5BMI status/follow-up: nml BMI,no senior counsel needed AttestationsAttestation needed: teaching physician Rudy Xiao 03/17/23 1405:Attestations Teaching Physician AttestationF/U visit w/ resident:I saw the patient with the resident and . . . agree with the resident's findings and plan. await echo and aicd interrogationcont xareltohas home o2 at 1511 at 0024 RPT #:[id number] OF REPORTPRProgress qecj8905-14-96W81:48:00Z.FILM56193902-7993DMHjbgb able for patient ilhjKARDVRVLREYHEV8199-54-67Y22:11:47 [facility] 2023-03-17 06:38:00 [id number] MJKlx2s8ZWFrLhiiHZiNcWOvDSele kaaj8Ad9flMnIPpJpNTm7Gwm00t3600-53-74V46:38:00 [facility] ([facility]DC[facility] Progress NoteREPORT#:[id number] REPORT STATUS: SignedDATE:03/17/23 TIME: 637 PATIENT: THIERRY MONGE UNIT #: [id number]#: [id number] [facility] [birth year] AGE: 62 SEX: M ATTEND: Rudy Xiao [facility] AUTHOR: Tyrell Mckeon MD * [...] LE assessment: no edemaMusculoskeletal: full range of motionNeuro/EDGERMAN: alert, oriented X 3, CN II-XII intactSkin: [...] (Auto) (14 - 44 %) 3.3 L Grayson % (Auto) (4 - 13 %) 3.9 L Eos % (Auto) (0 - 6 %) 0.0 Baso % (Auto) (0 - 2 %) 0.1 Neut # (Auto) (2.0 - 7.6 K/mm3) 9.37 H Lymph # (Auto) (1.0 - 3.8 K/mm3) 0.33 L Grayson # (Auto) (0.1 - 0.8 K/mm3) 0.40 [...] Oxygen support as needed. at 1220 RPT #:[id number] OF REPORTPRProgress dmam2959-82-06P92:38:00Z.JAKA92132528-9081QTKvbnf able for patient vqhzSQEDIXEYHJPFPH8367-25-53O79:20:45 [facility] 2023-03-16 20:57:00 [id number] fI4IJhecSsghj3QJwpYdRSy48thNo LLJMqHFSNGYXo7jje7b87WqCL1z4563-36-77V09:57:00 [facility] ([facility])Cardiology Progress NoteREPORT#:[id number] REPORT STATUS: SignedDATE:03/16/23 TIME: 2056 PATIENT: THIERRY MONGE UNIT #: [id number]#: [id number] [facility] [birth year] AGE: 62 SEX: M ATTEND: Rudy Xiao [facility] AUTHOR: Tyrell Mckeon MD * [...] LE assessment: no edemaMusculoskeletal: full range of motionNeuro/EDGERMAN: alert, oriented X 3, CN II-XII intactSkin: [...] (Auto) (14 - 44 %) 3.3 L Grayson % (Auto) (4 - 13 %) 3.9 L Eos % (Auto) (0 - 6 %) 0.0 Baso % (Auto) (0 - 2 %) 0.1 Neut # (Auto) (2.0 - 7.6 K/mm3) 9.37 H Lymph # (Auto) (1.0 - 3.8 K/mm3) 0.33 L Grayson # (Auto) (0.1 - 0.8 K/mm3) 0.40 [...] Oxygen support as needed. at 0637 RPT #:[id number] OF REPORTPRProgress dwtu0818-68-94V90:57:00Z.KGFW35344605-5603CHWddkv able for patient qvioMHHITKQNNCVMXI6748-76-79C48:38:10 [facility] 2023-03-16 08:07:00 [id number] EM9G4/KI80UHl0cTlnrOz2jz3KoXg 8/OWNoD+aNBDbXGKBbnTuZFvhMf3620-63-22Y08:07:00 [facility] ClinicHospital[facility] Progress NoteREPORT#:[id number] REPORT STATUS: SignedDATE:03/16/23 TIME: 08 PATIENT: THIERRY MONGE UNIT #: [id number]#: [id number] [address] [birth year] AGE: 62 SEX: M ATTEND: Rudy Xiao [facility] AUTHOR: Jenny Meyers MD R2 * ALL edits or amendments must be made on the electronic/computer document * Jenny Meyers 03/16/23 0807:SubjectiveChief complaint:SOB, hypotensionHPI:62 yo M with PMH of COPD on 2L NC, Hypertension, Anxiety, Systolic CHF s/p AICD,Afib on xarelto, CVA and dementia presented as a transfer from [facility] for evaluation of shortness of breath. Pt [...] no edemaMusculoskeletal: normal inspection, painless range of motionNeuro/EDGERMAN: alert, oriented X 3, normal speechSkin: dryPsychiatry: [...] combative without cigarette smoking or nicotine patches.PLAN- Auto Brake Mechanic on cessation- Cont. nicotine patch Code Status: Full CodeVTE Ppx: RivaroxibanDiet: Cardiac Quality: Gen Med Crit Care VTE ProphylaxisVTE prophylaxis initiated: yes (rivaroxiban) Current MedicationsCurrent medication review:I attest that the foregoing medication list in the medical record is true, accurate, and complete to the best of my knowledge. BMI Screening > 25 or < 18.5BMI status/follow-up: nml BMI,no senior counsel needed AttestationsAttestation needed: teaching physician Rudy Xiao 03/16/23 2007:Attestations Teaching Physician AttestationF/U visit w/ resident:I saw the patient with the resident and . . . agree with the resident's findings and plan. echocards folloingaicd interrogationcont xareltohas home o2 at 1416 at 2006 RPT #:[id number] OF REPORTPRProgress xjuv1100-45-34R07:07:00Z.DHJC61666891-9912YIZykvd able for patient arxtCSNAXSDSDCHVLR9246-21-02D35:17:30 [facility] 2023-03-15 20:17:00 [id number] uAfNSUlt/W9/8l/gCJaumTVLMl/Gq q3j2x+qmcuT05O69Tb7RqqSv17j8100-99-12V35:17:56355 8-0001 [place] [address] PATIENT NAME: THIERRY MONGE ADMIT DATE: 03/15/23ACCOUNT NO: [id number] ROOM NO: Z.347 AGE: 62 REPORT TYPE: ELECTROCARDIOGRAM SEX: M ADMITTING PHYSICIAN:Rudy Xiao MD ATTENDING PHYSICIAN:Rudy Xiao MD Order:[id number] Reason : CAD Test Date/Time Stamp:TueMar 15 [...] TENORIO at 0734 PATIENT NAME: THIERRY MONGE .[id number] AVAvailable for patient zxrgLZLWSGWCEMGVJD5434-29-42T56:34:54 [facility] 2023-03-15 16:03:00 [id number]/aRyP9 JtA2VvkkqfsySahb7zQqHGO0lTjuC ok+2K0BzUj4hq2tPZSfhIymKHTd7921-01-77Z99:03:13608 7-[address] [address] PATIENT NAME: THEIRRY MONGE ADMIT DATE: 03/15/23ACCOUNT NO: [id number] ROOM NO: Z.347 AGE: 62 REPORT TYPE: [...] who presented to the Emergency Room at [facility] in [place] with complaints of increasing shortness of breath. [...] Dictated: 03/15/2023 16:03:59Date Transcribed: 03/15/2023 16:59:18GSP/REQJob #: [id number] ID: [id number] by Tyrell Mckeon MD On 03/15/2023 06:28:21 PM at 0628 PATIENT NAME: THIERRY MONGE :59:00[facility] [id number] for patient zdpzWBXCASIOWJGYNE9934-14-17M60:29:09 [facility] 2023-03-15 10:52:00 [id number]++u i4ESVvukZoAY4NDfYlSR99K4BI5vc 4pVfF7FPjdwrEdFdwZWkg7d4ic84888-44-40A90:52:00 [facility] ([facility]FIELDHospitalist History PhysicalREPORT#:[id number] REPORT STATUS: SignedDATE:03/15/23 TIME: 1051 PATIENT: THIERRY MONGE UNIT #: [id number]#: [id number] [facility] [birth year] AGE: 62 SEX: M ATTEND: Rudy Xiao [facility] AUTHOR: Clare Velazquez * ALL edits or amendments must be made on the electronic/computer document * Clare Velazquez 03/15/23 1052:History of Present Illness HPIChief complaint:SOB, hypotension HPI:62 yo M with PMH of COPD on 2L NC, Hypertension, Anxiety, Systolic CHF s/p AICD,Afib on xarelto, CVA and dementia presented as a transfer from [facility] for evaluation of shortness of breath. Pt [...] Aerosphere 1] #11 - SIG Obtained 03/15/23 FromStrength: DrFirst 1122 TAMSULOSIN ER (FLOMAX) [...] DAILY 03/16 0900 AC (XARELTO) PO 04/15 09 Cardiovascular Drugs Sig/Imer Start time Last Medication [...] normal inspection, no muscle spasm, no paraspinal tendernessNeuro/EDGERMAN: alert, oriented X 3, normal speech, no [...] (Auto) (1.0 - 3.8 K/mm3) 0.51 L Grayson # (Auto) (0.1 - 0.8 K/mm3) 0.10 [...] to arrival here. Will continue with 40mg y1qzDdk tx, scheduled duonebs and budesonide PRN antitussives [...] is alert and oriented x3 #Tobacco abuse senior counsel on cessation. start nicotine patch VTE [...] BMI:Current BMI: 21.6 BMI status/follow-up: nml BMI,no senior counsel needed Rudy Xiao 03/15/23 2233:Attestations Teaching Physician Dgnveqvyurr6mb visit w/ resident:I was present with the resident during the history and exam. I discussed the case with the resident and . . . agree with the findings and plan as documented in the resident's note. echocards folloingaicd interrogationcont xareltohas home o2 at 2235 at 2343 RPT #:[id number] OF REPORTHPHistory and physical iqdciuwhmog4056-70-55Z38:52:00Z.[id number] AVAvailable for patient ojeoUCOXHAIEOZCOLK0361-91-39M41:35:21 [facility] 2023-03-15 07:02:00 [id number]/TtPnB2 yURiOcNy7hv4advyauUHM9lFt4F7L alP4BnVXz2zIobkHJpbc/j4OZoX0070-28-45V14:02:00 [facility] ([facility]ELDEMERGENCY PROVIDER REPORTREPORT#:[id number] REPORT STATUS: SignedDATE:03/15/23 TIME: 0702 PATIENT: THIERRY MONGE UNIT #: [id number]#: [id number] [address] SEX: M PCP PHYS: Undefined ProviderSERVICE AUTHOR: Royce Davison MD LOCATION: [facility] * ALL edits or amendments must be made on the electronic/computer document * See AddendumHPI-General Illness Free Text HPI NotesFree Text HPI Iqanf86-hokv-pya female past medical history COPD, hypertension, hyperlipidemia, A-fib on Xarelto [facility]. Complaining of shortness of breath over the [...] (Auto) (1.0 - 3.8 K/mm3) 0.51 L Grayson # (Auto) (0.1 - 0.8 K/mm3) 0.10 [...] Albuterol Sulfate 15 MG X1ED STA 03/15 632 DC 03/15 NEB 03/15 633 0642 Patient Discharge Departure Vital Signs/ConditionVital SignsFirst Documented: Result Date Time Pulse Ox 99 03/15 521 B/P 92/58 03/15 521 B/P Mean 69 03/15 521 Temp 36.9 03/15 521 Pulse 78 03/15 521 Resp 20 03/15 521 O2 Delivery Nasal cannula 06/27 0534 O2 Flow Rate 2 03/15 0534 Last Documented: Result Date Time Pulse Ox 98 03/15 0645 B/P 90/53 03/15 0645 B/P Mean 65 03/15 0645 O2 Delivery Room air 03/15 06 Pulse 72 03/15 0645 Resp 16 03/15 [...] other patients and teaching time. at 1918RPT #:[id number] OF REPORTEDEmergency department mnbkmf2390-85-98I68:02:00Z.SUCS92778391-2320LJGwe ilable for patient kembEQHXRGSIWATYYP7194-52-87E75:29:15 [facility] 2020-06-20 06:17:00 SLvohjcntzk70376909I KQ3E7VWs7hC/jn6p/kiIucXBelmOx mQHoS1kKc6e6j1S4ala84irzhCzwb55fBj9473-89-27M52:1 7:00 [facility] ClinicCard[facility] Progress NoteREPORT#:[id number] REPORT STATUS: SignedDATE:06/20/20 TIME: 616 PATIENT: THIERRY MONGE UNIT #: [id number]#: [id number] [facility] [birth year] AGE: 59 SEX: M ATTEND: Tyrell Mckeon MDA AUTHOR: Tyrell Mckeon MD * ALL edits [...] Potassium Chloride 10 MEQ BID PO Ipratropium [place] 0.5 MG RTQ6H INH Cefazolin Sodium 1,000 [...] LE assessment: no edemaMusculoskeletal: full range of motionNeuro/EDGERMAN: alert, oriented X 3, CN II-XII intactSkin: [...] % (Auto) (14 - 44 %) 27.8 Grayson % (Auto) (4 - 13 %) 8.6 Eos % (Auto) (0 - 6 %) 1.7 Baso % (Auto) (0 - 2 %) 0.6 Neut # (Auto) (2.0 - 7.6 K/mm3) 3.99 Lymph # (Auto) (1.0 - 3.8 K/mm3) 1.82 Grayson # (Auto) (0.1 - 0.8 K/mm3) 0.56 [...] right lung apex is excluded from the hntky-xm-lppc. No acutecardiopulmonary abnormality is identified.Impression By: Puma7 - Latanya Marshall MD Diagnosis, Assessment Plan Free Text DxA P NotesFree Text DxA P Notes:IMP: Chronic systolic heart failure s/p [employer] [place] AICD - single lead PLAN: AICD interrogation d/c home if stable. at 0818 [facility] #:[id number] OF REPORTPRProgress Dchk6716-09-76Z85:17:00Z.LNTR96523576-4720UEDifdg able for patient klwsQWRQAFLCZMDWSG7896-11-42H09:18:31 [facility] 2020-06-19 16:03:00 UUirghffrxb78451026K 94bU8BUDfS5Yq61VCpa2P4DyzRBK8 b8PfEO3zT+F7qpos4titqTUWwlWWlUVMHM7769-61-28T90:0 3:862634-[address] [address] PATIENT NAME: THIERRY MONGE ADMIT DATE: 06/19/20ACCOUNT NO: [id number] ROOM NO: [facility] AGE: 59 REPORT TYPE: OPERATIVE REPORT SEX: M ADMITTING PHYSICIAN:Tyrell Mckeon MD ATTENDING PHYSICIAN:Tyrell Mckeon MD OPERATION DATE: 06/19/2020 PROCEDURES:1. Non-thoracotomy single lead AICD placement.2. Defibrillation threshold testing. PREOPERATIVE DIAGNOSES:1. 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 [place] [employer] class III congestive heart failure. POSTOPERATIVE DIAGNOSES:1. 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 [place] [employer] class III congestive heart failure. SURGEON: Tyrell Mckeon MD V BELT INSPECTOR: None. ANESTHESIA: Local anesthesia with 1% lidocaine [...] pocket was flushed with antibiotic-containing solution. A 7-Czech sheathwas advanced over the wire and left [...] IMPLANT DATA:1. Pulse generator: [employer] Cory model MJ5549-63T, serial #[id number]. Right ventricular lead; [employer] Cory model 7120Q/58, serial number [id number]. STIMULATION THRESHOLD DATA: Right ventricle R waves [...] Dictated By: Tyrell Mckeon MD WT: OP:KINGS/LUIS ANGEL/NTSDD: 06/19/2020 16:03:36DT: 06/19/2020 17:31:17Conf#: [id number]/DID#: [id number] cc: Omid Tenorio MD Authenticated by Tyrell Mckeon MD On 06/23/2020 06:02:06 AM at 0602 PATIENT NAME: THIERRY MONGE jyrcwl8820-62-15E95:31:00Z.[id number] lable for patient ksvhKLZMEOHQRHQDYB6854-09-16L50:03:33 [facility] 2020-06-19 13:14:00 CGbcreyidtr04972223N i+6NgMrNyMqtVLGEe7ywGFVhBNfsz oU7Iz0Em4M9b/ZTyTKG2/jH9Gni6cpHkAQ1447-51-40I31:1 4:[id number] [address] PATIENT NAME: THIERRY MONGE ADMIT DATE: 06/19/20ACCOUNT NO: [id number] ROOM NO: [facility] AGE: 59 REPORT TYPE: ELECTROCARDIOGRAM SEX: M ADMITTING PHYSICIAN:Tyrell Mckeon MD ATTENDING PHYSICIAN:Tyrell Mckeon MD Order:[id number] Reason : CHF Test Date/Time Stamp:TueJun 19 [...] MD at 1157 PATIENT NAME: THIERRY MONGE .[id number] AVAvailable for patient umqcHEDMPNEDGROFBJ6069-22-99L86:57:37 [facility]
[2023-10-16 23:06] LABS: Absolute Lymphocytes (CBC) 1.3 K/uL (0.7-4.9); Hematocrit 36.3 % (39.6-49.0); Lymphocytes % 11.4 % (15.3-44.8); MPV 8.6 fL (7.6-11.3); Platelets 255 thou/uL (152-406); Protime INR 1.04
[2023-10-16 23:15] LABS: ALT/SGPT 15 U/L (16-61); Albumin 3.1 g/dL (3.4-5.0); Alkaline Phosphatase 56 U/L (45-117); BUN Blood Urea Nitrogen 18 mg/dL (7-18); Bicarbonate 39 mEq/L (21-32); Bilirubin Total 0.5 mg/dL (0.2-1.0); Glomerular Filtration Rate 71 ml/min (=/>90); Glucose Level 96 mg/dL (74-106); Potassium 3.5 mEq/L (3.5-5.1); Protein, Total 6.1 g/dL (6.4-8.2); Sodium Level 140 mEq/L (136-145); Troponin High Sensitivity 9.7 pg/mL (<58.9)
[2023-10-16 23:17] LABS: AST/SGOT < 4 U/L (15-37)
--- NOTE | 2023-10-16 23:51 | ER ---
Nurse's Notes [facility] Name: Juan C Monge Age: 63 yrs Sex: Male : 1960 Arrival Date: 10/16/2023 Time: 22:29 Bed 19 Private MD: Diagnosis: COPD/ Chronic obstructive pulmonary disease with (acute) exacerbation;Hypoxemia Presentation: 10/16 22:33 Chief complaint: EMS states: When we arrived he was 65% on room air he came up to 99% vc1 on non rebreather. Uses O2 at home as needed. Chief complaint: Patient states: I sat by the bar b que pit earlier tonight. When I went to stand up I was dizzy. Coronavirus screen: Vaccine status: Patient reports being unvaccinated. Client denies travel out of the [place] in the last 14 days. At this time, the client does not indicate any symptoms associated with coronavirus-19. Ebola Screen: Patient negative for fever greater than or equal to 101.5 degrees Fahrenheit, and additional compatible Ebola Virus Disease symptoms Patient denies exposure to infectious person. Patient denies travel to an Ebola-affected area in the 21 days before illness onset. No symptoms or risks identified at this time. Initial Sepsis Screen: Does the patient meet any 2 criteria? RR > 20 per min. Initial Sepsis Screen: Does the patient meet any 2 criteria? HR > 90 bpm. Yes Does the patient have a suspected source of infection? No. Patient's initial sepsis screen is negative. Risk Assessment: Do you want to hurt yourself or someone else? Patient reports no desire to harm self or others. Onset of symptoms was October 16, 2023. 22:33 Method Of Arrival: EMS: [facility] vc1 22:33 Acuity: JESSI 2 vc1 Triage Assessment: 22:37 General: Appears distressed, uncomfortable, slender, Behavior is initially vc1 uncooperative but will eventually cooperate after coaching. Pain: Denies pain. EENT: No deficits noted. No signs and/or symptoms were reported regarding the EENT system. Neuro: Level of Consciousness is awake, alert, Oriented to person, place, time, situation. Cardiovascular: Reports shortness of breath, Denies chest pain, Rhythm is sinus tachycardia. Respiratory: Airway Respiratory effort is labored. Respiratory: Airway is patent Respiratory effort is labored, Respiratory pattern is symmetrical, tachypnea. GI: No deficits noted. No signs and/or symptoms were reported involving the gastrointestinal system. : No deficits noted. No signs and/or symptoms were reported regarding the genitourinary system. Derm: No deficits noted. No signs and/or symptoms reported regarding the dermatologic system. Musculoskeletal: No deficits noted. No signs and/or symptoms reported regarding the musculoskeletal system. Historical: - Allergies: 22:36 No Known Allergies; vc1 - PMHx: 22:36 COPD; CVA; Hyperlipidemia; Hypertension; Myocardial infarction; skull fracture; vc1 - PSHx: 22:36 Appendectomy; pacemaker; vc1 - Immunization history:: Adult Immunizations unknown. - Social history:: Smoking status: Patient reports the use of cigarette tobacco products, smokes one pack cigarettes per day. - Family history:: not pertinent. - Hospitalizations: : No recent hospitalization is reported. Screenin:43 [facility] ED Fall Risk Assessment (Adult) History of falling in the last 3 months, vc1 including since admission No falls in past 3 months (0 pts) Confusion or Disorientation No (0 pts) Intoxicated or Sedated No (0 pts) Impaired Gait No (0 pts) Mobility Assist Device Used No (0 pt) Altered Elimination No (0 pt) Score/Fall Risk Level 0 - 2 = Low Risk Oriented to surroundings, Maintained a safe environment, Educated pt \\T\\ family on fall prevention, incl call for assistance when getting out of bed. Abuse screen: Denies threats or abuse. Nutritional screening: No deficits noted. Tuberculosis screening: No symptoms or risk factors identified. Assessment: 22:37 Reassessment: See triage assessment. vc1 22:38 Reassessment: Registration at bedside asking patient if he has any updated information vc1 on residence and insurance, pt states I am not doing that. 22:42 Reassessment: Pt asks for registration to come back in, states to registration, "can we vc1 do the paper work now and get it over with.". 23:30 Reassessment: Patient and/or family updated on plan of care and expected duration. Pain ha1 level reassessed. Patient is alert, oriented x 3, equal unlabored respirations, skin warm/dry/pink. Patient states feeling better. Patient states symptoms have improved. 10/17 00:29 Reassessment: Patient and/or family updated on plan of care and expected duration. Pain ha1 level reassessed. Patient is alert, oriented x 3, equal unlabored respirations, skin warm/dry/pink. Patient denies pain at this time. Patient states feeling better. Patient states symptoms have improved. 08:38 Reassessment: Attempted to call report, left message on ph #6 and called desk and left ko1 msg for nurse to call me back. Vital Signs: 10/16 22:30 BP 167 / 97; Pulse 102; Resp 24 S; Pulse Ox 100% on BiPAP; ha1 22:33 BP 119 / 90; Pulse 112; Resp 24; Pulse Ox 100% on 15 lpm Non-rebreather mask; Weight lg3 68.04 kg; Height 5 ft. 10 in. ; Pain 0/10; 23:00 BP 133 / 77; Pulse 85; Resp 19; Pulse Ox 100% on BiPAP; FiO2 60 %; vc1 10/17 00:00 BP 154 / 66; Pulse 96; Resp 17 S; Pulse Ox 100% on 2 lpm NC; ha1 10/16 22:33 Body Mass Index 21.52 (68.04 kg, 177.8 cm) lg3 22:33 Pain Scale: Adult lg3 ED Course: 10/16 22:31 Patient arrived in ED. rn 22:31 Genaro England MD is Attending Physician. rn 22:36 Triage completed. vc1 22:46 Arm band placed on right wrist. vc1 22:46 Patient has correct armband on for positive identification. Bed in low position. Call vc1 light in reach. Client placed on continuous cardiac and pulse oximetry monitoring. NIBP monitoring applied. 22:48 Chest Single View XRAY In Process Unspecified. EDMS 22:51 Blood Culture Adult (2) Sent. ha1 22:51 Inserted saline lock: 20 gauge in left antecubital area, using aseptic technique. Blood vc1 collected. Maintain EMS IV. Dressing intact. Site clean \\T\\ dry. Gauge \\T\\ site: 20G right hand. 22:51 CBC with Diff Sent. ha1 22:51 CMP Sent. ha1 22:51 Lactate w/ 2H reflex if indic. Sent. ha1 22:51 Protime (+inr) Sent. ha1 22:51 Ptt, Activated Sent. ha1 23:23 BIPAP Sent. lg3 23:50 Chester Ramos MD is Hospitalizing Provider. rn 23:54 Mikayla Nunez RN is Primary Nurse. 1 10/17 02:00 No provider procedures requiring assistance completed. Patient admitted, IV remains in vc1 place. 08:34 Provided Education on: na. ko1 Administered Medications: 10/16 22:40 Drug: DuoNeb Nebulize (3:1) (2.5 mg - 0.5 mg) 3 ml Nebulizer once Route: Nebulizer; [facility] 10/17 00:30 Follow up: Response: No adverse reaction; Marked relief of symptoms [facility] 10/16 22:45 Drug: MethylPrednisoLONE IVP 125 mg IVP once Route: IVP; Site: right hand; [facility] 10/17 00:30 Follow up: Response: No adverse reaction; Marked relief of symptoms [facility] 10/16 22:51 Drug: Magnesium Sulfate IVPB 1 grams IVPB once over 1 hrs Route: IVPB; Infused Over: 1 ha1 hrs; Site: right hand; 23:51 Follow up: IV Status: Completed infusion; IV Intake: 100ml 1 10/17 01:15 Drug: Zithromax IVPB 500 mg IVPB once over 1 hrs; mix in 250 mL NS Route: IVPB; Infused ha1 Over: 1 hrs; Site: left forearm; 02:15 Follow up: IV Status: Completed infusion; IV Intake: 250ml [facility] 01:40 Drug: Nicoderm CQ Transdermal Patch 21 mg/24 hr 1 patches Transdermal once {Note: ha1 administered at back of left shoulder .} Route: Transdermal; Site: affected area; Medication: 10/16 22:46 VIS not applicable for this client. vc1 Intake: 23:51 IV: 100ml; Total: 100ml. vc1 10/17 02:15 IV: 250ml; Total: 350ml. vc1 Outcome: 10/16 23:50 Decision to Hospitalize by Provider. rn 10/17 02:00 Admitted to ER Hold. Please see [facility] for further documentation. vc1 Condition: good Instructed on the need for admit, 08:54 Admitted to Med/surg accompanied by nurse, via stretcher, room 221, with chart, Report ko1 called to Bedside report given 08:55 Patient left the ED. ko1 Signatures: Dispatcher [employer] EDMS Genaro England MD MD rn Able, Lacie RN RN lg3 Mikayla Nunez, RN RN vc1 Anette Fernandez, RN RN 1 Ashley Henry, RN RN ko1 Corrections: (The following items were deleted from the chart) 10/16 22:54 22:51 Troponin High Sensitivity+C.LAB.BRZ drawn and sent. [facility] EDMS 23:54 22:33 BP 119 / 90; Pulse 112bpm; Resp 24bpm; Pulse Ox 100%; 68.04 kg; Height 5 ft. 10 vc1 in.; BMI: 21.5; Pain 0/10, Adult; vc1 23:56 22:33 BP 119 / 90; Pulse 112bpm; Resp 24bpm; Pulse Ox 100% Non-rebreather mask; 68.04 lg3 kg; Height 5 ft. 10 in.; BMI: 21.5; Pain 0/10, Adult; vc1
--- NOTE | 2023-10-16 23:51 | EDPHYS ---
Physician Documentation [facility] Name: Juan C Monge Age: 63 yrs Sex: Male : 1960 Arrival Date: 10/16/2023 Time: 22:29 Bed 19 Private MD: ED Physician Genaro England HPI: 10/16 22:39 This 63 yrs old Male presents to ER via EMS with complaints of sob. rn 22:39 The patient has shortness of breath at rest. Onset: The symptoms/episode began/occurred rn today. Duration: The symptoms are continuous. The patient's shortness of breath is aggravated by nothing, is alleviated by application of supplemental oxygen. Associated signs and symptoms: Pertinent positives: This patient does not have any pertinent positive signs or symptoms associated with shortness of breath. Pertinent negatives: chest pain, fever, hemoptysis. Severity of symptoms: At their worst the symptoms were moderate in the emergency department the symptoms have improved. The patient has experienced similar episodes in the past. Patient reports history of COPD, uses 2 L nasal cannula as needed at home. Today was sitting around a fire and thinks triggered his COPD. EMS reports room oxygen was 65%. Currently on 15 L nonrebreather. Patient reports improvement with oxygen. No chest pain. No recent illness.. Historical: - Allergies: 22:36 No Known Allergies; vc1 - PMHx: 22:36 COPD; CVA; Hyperlipidemia; Hypertension; Myocardial infarction; skull fracture; vc1 - PSHx: 22:36 Appendectomy; pacemaker; vc1 - Immunization history:: Adult Immunizations unknown. - Social history:: Smoking status: Patient reports the use of cigarette tobacco products, smokes one pack cigarettes per day. - Family history:: not pertinent. - Hospitalizations: : No recent hospitalization is reported. ROS: 22:39 Constitutional: Negative for fever, chills, and weight loss, Neck: Negative for injury, rn pain, and swelling, Cardiovascular: Negative for chest pain, palpitations, and edema, Respiratory: Positive for shortness of breath and wheezing Abdomen/GI: Negative for abdominal pain, nausea, vomiting, diarrhea, and constipation, MS/Extremity: Negative for injury and deformity, Skin: Negative for injury, rash, and discoloration, Neuro: Negative for headache, weakness, numbness, tingling, and seizure, Exam: 22:39 Constitutional: This is a well developed, well nourished patient who is awake, alert, rn moderate tachypnea Head/Face: Normocephalic, atraumatic. ENT: No stridor Cardiovascular: Tachycardic, regular. No pulse deficits Respiratory: Moderate tachypnea with poor inspiratory airflow and faint expiratory wheezing. Diminished at bases. No retractions MS/ Extremity: Pulses equal, no cyanosis. Neurovascular intact. Full, normal range of motion. Equal circumference. Neuro: Awake and alert, GCS 15, oriented to person, place, time, and situation. Motor strength 5/5 in all extremities. Sensory grossly intact. Cerebellar exam normal. Able to move himself from EMS stretcher to our stretcher without assistance 10/17 03:30 ECG was reviewed by the Attending Physician. rn Vital Signs: 10/16 22:30 BP 167 / 97; Pulse 102; Resp 24 S; Pulse Ox 100% on BiPAP; ha1 22:33 BP 119 / 90; Pulse 112; Resp 24; Pulse Ox 100% on 15 lpm Non-rebreather mask; Weight lg3 68.04 kg; Height 5 ft. 10 in. ; Pain 0/10; 23:00 BP 133 / 77; Pulse 85; Resp 19; Pulse Ox 100% on BiPAP; FiO2 60 %; vc1 10/17 00:00 BP 154 / 66; Pulse 96; Resp 17 S; Pulse Ox 100% on 2 lpm NC; ha1 10/16 22:33 Body Mass Index 21.52 (68.04 kg, 177.8 cm) lg3 22:33 Pain Scale: Adult lg3 MDM: 10/16 22:31 Patient medically screened. rn 23:48 Differential diagnosis: Anxiety Reaction Chronic Obstructive Pulmonary Disease rn Myocardial Infarction pneumonia, Pneumothorax reactive airway disease. Data reviewed: vital signs, nurses notes, lab test result(s), EKG, radiologic studies, plain films, and as a result, I will admit patient. Counseling: I had a detailed discussion with the patient and/or guardian regarding the historical points, exam findings, and any diagnostic results supporting the discharge/admit diagnosis, lab results, radiology results, the need for further work-up and treatment in the hospital. Response to treatment: the patient's symptoms have markedly improved after treatment, and as a result, I will admit patient. ED course: Patient with marked improvement with BiPAP and nebulizer treatments in addition to steroids. We are starting to wean patient back to nasal cannula successfully. Will admit patient for COPD exacerbation. ED course: I personally spent 35 minutes engaged in work directly related to the individual patient's care. This does not include any time spent performing procedures. The patient has been deemed critically ill because of severe COPD exacerbation with severe hypoxia requiring BiPAP, multiple nebulizer treatments, steroids, IV magnesium.. 10/17 00:46 ED course: No infection identified at this time, chest x-ray clear, admitted for COPD rn exacerbation without infectious etiology. Zithromax written empirically for COPD exacerbation. 10/16 22:32 Order name: Blood Culture Adult (2) rn 10/16 22:32 Order name: CBC with Diff; Complete Time: 23:18 rn 10/16 22:32 Order name: CMP; Complete Time: 23:18 rn 10/16 22:32 Order name: Lactate w/ 2H reflex if indic.; Complete Time: 23:18 rn 10/16 22:32 Order name: Protime (+inr); Complete Time: 23:18 rn 10/16 22:32 Order name: Ptt, Activated; Complete Time: 23:18 rn 10/16 22:55 Order name: Troponin High Sensitivity; Complete Time: 23:18 EDAR 10/17 01:03 Order name: Urinalysis w/ reflexes EDMS 10/17 01:03 Order name: CBC with Automated Diff EDMS 10/17 01:03 Order name: CBC with Automated Diff EDMS 10/17 01:03 Order name: Comprehensive Metabolic Panel EDMS 10/17 01:03 Order name: Comprehensive Metabolic Panel EDMS 10/17 01:03 Order name: Magnesium EDMS 10/17 01:03 Order name: Magnesium EDMS 10/17 01:03 Order name: Phosphorus EDMS 10/17 01:03 Order name: Phosphorus EDMS 10/17 01:03 Order name: Troponin High Sensitivity EDMS 10/17 01:03 Order name: Troponin High Sensitivity EDMS 10/16 22:32 Order name: Chest Single View XRAY rn 10/16 22:32 Order name: BIPAP rn 10/16 22:32 Order name: EKG; Complete Time: 22:32 rn 10/16 22:32 Order name: Accucheck; Complete Time: 00:29 rn 10/16 22:32 Order name: Cardiac monitoring; Complete Time: 22:50 rn 10/16 22:32 Order name: EKG - Nurse/Tech; Complete Time: 22:50 rn 10/16 22:32 Order name: IV Saline Lock - Large Bore; Complete Time: 22:50 rn 10/16 22:32 Order name: Labs collected and sent; Complete Time: 22:50 rn 10/16 22:32 Order name: O2 Per Protocol; Complete Time: :50 rn 10/16 22:32 Order name: O2 Sat Monitoring; Complete Time: 22:50 rn 10/16 22:32 Order name: Vital Signs; Complete Time: 22:51 rn EC:30 Rate is 102 beats/min. Rhythm is regular. QRS [place] is Normal. CO interval is normal. rn QRS interval is normal. QT interval is normal. No Q waves. T waves are Normal. No ST changes noted. Clinical impression: Sinus tachycardia. Interpreted by me. Reviewed by me. Administered Medications: 10/16 22:40 Drug: DuoNeb Nebulize (3:1) (2.5 mg - 0.5 mg) 3 ml Nebulizer once Route: Nebulizer; [facility] 10/17 00:30 Follow up: Response: No adverse reaction; Marked relief of symptoms [facility] 10/16 22:45 Drug: MethylPrednisoLONE IVP 125 mg IVP once Route: IVP; Site: right hand; [facility] 10/17 00:30 Follow up: Response: No adverse reaction; Marked relief of symptoms [facility] 10/16 22:51 Drug: Magnesium Sulfate IVPB 1 grams IVPB once over 1 hrs Route: IVPB; Infused Over: 1 ha1 hrs; Site: right hand; 23:51 Follow up: IV Status: Completed infusion; IV Intake: 100ml vc1 10/17 01:15 Drug: Zithromax IVPB 500 mg IVPB once over 1 hrs; mix in 250 mL NS Route: IVPB; Infused ha1 Over: 1 hrs; Site: left forearm; 02:15 Follow up: IV Status: Completed infusion; IV Intake: 250ml vc1 01:40 Drug: Nicoderm CQ Transdermal Patch 21 mg/24 hr 1 patches Transdermal once {Note: ha1 administered at back of left shoulder .} Route: Transdermal; Site: affected area; Disposition: 10/16 23:48 Critical Care:. rn Disposition Summary: 10/16/23 23:50 Hospitalization Ordered Notes: Hospitalization Status: Inpatient Admission rn Provider: Chester Ramos rn Condition: Stable rn Problem: an acute exacerbation rn Symptoms: have improved rn Bed/Room Type: Standard rn Location: Telemetry/MedSurg (Inpatient)(10/17/23 07:47) bd Room Assignment: 221(10/17/23 07:47) bd Diagnosis - COPD/ Chronic obstructive pulmonary disease with (acute) exacerbation rn - Hypoxemia rn Forms: - Medication Reconciliation Form rn - SBAR form rn - Leadership Thank You Letter pharmacy intern time excluding procedures: 23:48 Critical care time: Bedside Care: 35 minutes. Total time: 35 minutes rn Signatures: Dispatcher [employer] EDMS Reanna Cline Roman, MD MD rn Able, Lacie RN RN lg3 Mikayla Nunez, RN RN vc1 Anette Fernandez, RN RN ha1 Ashley Henry, RN RN ko1 Corrections: (The following items were deleted from the chart) 22:54 22:48 Troponin High Sensitivity+C.LAB.BRZ ordered. EDAR EDMS 10/17 05:47 10/16 23:50 Telemetry/MedSurg (Inpatient) rn lg3 10/17 05:47 10/16 23:50 rn lg3 10/17 07:47 05:47 [facility] ER HOLD lg3 bd 07:47 05:47 ERHOLD- lg3 bd
[2023-10-17] MEDS ORDERED: NA CHLORIDE 0.9% 250 ML ONE (00:59)
[2023-10-17] MEDS ORDERED: ONDANSETRON 4 MG/2 ML VIAL IV PRN (00:59)
[2023-10-17] MEDS ORDERED: AZITHROMYCIN 500 MG INJ IVPB ONE (00:59)
[2023-10-17] MEDS ORDERED: ACETAMINOPHEN 325 MG TABLET PO PRN (00:59)
--- NOTE | 2023-10-17 01:32 | P.HP ---
Certification for Inpatient With expected LOS: >2 Midnights Practitioner: I am a practitioner with admitting privileges, knowledge of patient current condition, hospital course, and medical plan of care. Services: Services provided to patient in accordance with Admission requirements found in Title 42 Section 412.3 of the Code of Federal Regulations Patient History Date of Service: 10/17/23 Reason for admission: COPD with acute exacerbation History of Present Illness: 63-year-old male with a history of COPD on 2 L home oxygen, hypertension, CVA, atrial fibrillation, ICM with AICD and tobacco use was brought to the ED by EMS after patient developed acute worsening shortness of breath. Patient states that he was sitting by the [employer] pit yesterday and apparently had inhaled a lot of the [employer] smoke, when he stood up he became dizzy along with severe shortness of breath and wheezing. He denied any coughing, fever or chest pain. When EMS arrived his O2 sats was 65% on room air but improved to 99% on 15 L of nonrebreather mask. When he arrived to the ED his vital signs were within normal limits his labs showed WBC 11.2K and bicarb of 39. Heart rate 112. Chest x-ray showed chronic lung changes but no no acute findings. Patient was initially placed on BiPAP, he was given nebulizer treatments along with Solu- Medrol 125 mg Mag sulfate 1g. He remained briefly on BiPAP and then was transitioned to to oxygen by nasal cannula. Allergies No Known Allergies Allergy (Verified 09/12/23 00:32) Home Medications: Roflumilast [Daliresp*] 500 mcg PO DAILY #0 09/13/23 Azithromycin Tab [Zithromax*] 250 mg PO DAILY 14 Days #14 tab 09/15/23 Fluticasone/Umeclidin/Vilanter [Trelegy Ellipta 100-62.5-25] 1 each IH DAILY 30 Days #1 inhaler 09/15/23 Nicotine [Nicotine Patch] 1 each TD DAILY 14 Days #10 patch 09/15/23 predniSONE [Deltasone*] 10 mg PO DAILY 10 Days #10 tab 09/15/23 - Past Medical/Surgical History Diabetic: No -: COPD -: Paroxysmal Afib -: HTN -: Tobacco abuse -: TIA -: skull fx -: defibrilator -: Home O2 -: Hx Hyponatremia (Dr. Hargrove/ Dr. Menjivar) -: Appendectomy Psychosocial/ Personal History: Patient lives with a girlfriend at home - Family History Father -: Diabetes Mother -: Diabetes - Social History Alcohol use: No CD- Drugs: No Caffeine use: Yes Review of Systems 10-point ROS is otherwise unremarkable Physical Examination - Vital Signs Blood Pressure: 119/90 Pulse: 103 Respirations: 24 Pulse Ox (%): 100 - Physical Exam General: Alert, In no apparent distress, Oriented x3 HEENT: Atraumatic, Normocephalic Neck: Supple, No Thyromegaly Respiratory: Expiratory wheezes Cardiovascular: No edema, Regular rate/rhythm, Normal S1 S2 Gastrointestinal: Normal bowel sounds, Soft and benign, Non-distended, No masses Musculoskeletal: No swelling, No erythema, No tenderness Integumentary: No rashes Neurological: Normal speech, Normal strength at 5/5 x4 extr, Normal tone, Sensation intact - Studies Laboratory Data (last 24 hrs) 10/16/23 10/16/23 10/16/23 22:44 22:44 22:44 WBC 11.20 H Hgb 11.9 L Hct 36.3 L Plt Count 255 PT 11.4 INR 1.04 APTT 28.0 Sodium 140 Potassium 3.5 BUN 18 Creatinine 1.15 Glucose 96 Total Bilirubin 0.5 AST < 4 L ALT 15 L Alkaline Phosphatase 56 Assessment and Plan - Plan Acute on chronic hypoxic respiratory failure Exacerbated by exposure to smoke Bronchodilators and steroids Supplemental oxygen as tolerated Acute COPD exacerbation Chronic respiratory failure on 2 L home oxygen DuoNebs 6hr S/P Methylprednisolone 125 mg IV x 1, transition to Prednisone S/P Magnesium Sulfate 1 g IV x 1 Azithromycin x3 days Supplemental oxygen to maintain SpO2 > 92% CVA Atrial fibrillation ICM with AICD Tobacco use Chronic metabolic alkalosis Hypertension - Advance Directives Does patient have a Living Will: No Does patient have a Durable POA for Healthcare: No
[2023-10-17] MEDS ORDERED: NICOTINE 21 MG/PAT TD ONE (01:38)
[2023-10-17] MEDS: IPRATROPIUM BROM 0.5MG/2.5ML NEB SCH ×4 (01:57→19:55)
[2023-10-17] MEDS: ALBUTEROL 2.5 MG/3 ML NEB SOL NEB SCH ×4 (01:57→19:55)
[2023-10-17 02:28] VITALS: BMI 21.5
[2023-10-17] MEDS: predniSONE 20 MG TAB PO SCH (08:14)
[2023-10-17] MEDS: ENOXAPARIN 40 MG/0.4 ML SQ SCH (08:14)
[2023-10-17] MEDS ORDERED: predniSONE 20 MG TAB ONE (08:24)
[2023-10-17] MEDS ORDERED: ENOXAPARIN 40 MG/0.4 ML SQ ONE (08:24)
--- NOTE | 2023-10-17 12:55 | P.PN ---
Date of Service: 10/17/23 Patient seen and examined. He states he feels better but not back to baseline yet. Examination: Lung sounds diminished. Diagnosis: COPD exacerbation Plan: Steroid Schedule ipratropium and albuterol Zithromax. Patient is currently tolerating baseline home oxygen. Anticipating discharge in a.m.. Patient is requesting to be discharged tomorrow.
--- NOTE | 2023-10-17 13:10 | RAD REPORT ---
EXAM DESCRIPTION: RAD - Chest Single View - 10/16/2023 10:47 pm CLINICAL HISTORY: 63 years Male, DYSPNEA COMPARISON: Chest radiograph dated 06/09/2023 IMPRESSION: Chronic lung changes. No focal consolidation. No pleural effusion. No pneumothorax. Unchanged left chest AICD. Cardiomediastinal silhouette is within normal limits. No acute osseous abnormality. Electronically signed by: Joseph Gan DO 10/16/2023 11:18 PM SURGERY ASSISTANT Due to temporary technical issues with the PACS/Fluency reporting system, reports are being signed by the in house radiologist without review as a courtesy to ensure prompt reporting. The interpreting r adiologist is fully responsible for the content of the report.
[2023-10-17 13:15] LABS: Specific Gravity 1.023 (1.005-1.030); Urine Bilirubin NEGATIVE (Negative); Urine Blood Negative (Negative); Urine Clarity Clear (Clear); Urine Color Light-Yellow (Yellow); Urine Glucose 2+ (Negative); Urine Protein NEGATIVE (Negative); Urine Urobilinogen Normal (Normal)
[2023-10-17] MEDS ORDERED: NICOTINE 21 MG/PAT TD SCH (20:14)
[2023-10-18] MEDS ORDERED: AZITHROMYCIN IV 500 MG in NA CHLORIDE 0.9% 250 ML IVPB SCH ×2
[2023-10-18] MEDS: ALBUTEROL 2.5 MG/3 ML NEB SOL NEB SCH ×2 (00:53→07:40)
[2023-10-18] MEDS: IPRATROPIUM BROM 0.5MG/2.5ML NEB SCH ×2 (00:53→07:40)
[2023-10-18 01:26] VITALS: O2SAT 98
[2023-10-18 06:33] LABS: Absolute Lymphocytes (CBC) 0.4 K/uL (0.7-4.9); Hematocrit 31.5 % (39.6-49.0); Lymphocytes % 4.3 % (15.3-44.8); MCV 97.4 fL (80-100); MPV 8.8 fL (7.6-11.3); Platelets 218 thou/uL (152-406); RBC Red Blood Cell Count 3.23 M/uL (4.33-5.43)
[2023-10-18 07:00] LABS: ALT/SGPT 14 U/L (16-61); Albumin 2.7 g/dL (3.4-5.0); Alkaline Phosphatase 44 U/L (45-117); BUN Blood Urea Nitrogen 29 mg/dL (7-18); Bicarbonate 35 mEq/L (21-32); Bilirubin Total 0.2 mg/dL (0.2-1.0); Glomerular Filtration Rate 95 ml/min (=/>90); Glucose Level 138 mg/dL (74-106); Magnesium 2.1 mg/dL (1.6-2.4); Phosphorus 2.4 mg/dL (2.5-4.9); Potassium 3.7 mEq/L (3.5-5.1); Protein, Total 5.2 g/dL (6.4-8.2); Sodium Level 140 mEq/L (136-145); Troponin High Sensitivity 7.6 pg/mL (<58.9)
[2023-10-18 07:01] LABS: AST/SGOT < 4 U/L (15-37)
--- NOTE | 2023-10-18 07:24 | P.DS ---
Admission Date: 10/17/23 Discharge Date: 10/18/23 Disposition: ROUTINE DISCHARGE Discharge Condition: GOOD Reason for Admission: COPD with acute exacerbation Brief History of Present Illness: 63yo M, PMH: COPD on 2 L home oxygen, hypertension, CVA, atrial fibrillation, ICM with AICD and tobacco use Patient was brought to the ED by EMS after patient developed acute worsening shortness of breath. Patient states that he was sitting by the [employer] pit yesterday and apparently had inhaled a lot of the [place] smoke, when he stood up he became dizzy along with severe shortness of breath and wheezing. He denied any coughing, fever or chest pain. When EMS arrived his O2 sats was 65% on room air but improved to 99% on 15 L of nonrebreather mask. When he arrived to the ED his vital signs were within normal limits his labs showed WBC 11.2K and bicarb of 39. Heart rate 112. Chest x-ray showed chronic lung changes but no no acute findings. Patient was initially placed on BiPAP, he was given nebulizer treatments along with Solu-Medrol 125 mg Mag sulfate 1g. He remained briefly on BiPAP and then was transitioned to to oxygen by nasal cannula. Hospital Course: Problem List: Acute on chronic hypoxic respiratory failure secondary to acute COPD exacerbation (on home O2) h/o prior CVA Paroxysmal atrial fibrillation ICM with AICD Tobacco use Chronic metabolic alkalosis Hypertension Patient presented with worsening shortness of breath. CXR with chronic lung findings however no acute findings. Suspect acute COPD exacerbation. O2 sats were 65% on room air on admission. Patient was briefly placed on BiPAP for < 24 hours and deescalated to nasal cannula. Patient's breathing improved with steroids, duonebs, and oxygen supplementation. Patient also received ~3 days of IV azithromycin as a precaution to cover possible infection / pneumonia however suspect symptoms are more consistent with COPD exacerbation. No antibiotics warranted on discharge. Patient was feeling better, wanting to go home, breathing more comfortably on his home oxygen baseline, and deemed stable for discharge. Patient is to complete short course of oral prednisone on discharge. Medications: Prednisone Continue other home medications as previously prescribed. Follow up: PCP 3-5 days Pulmonology in 2-4 weeks Physical Exam: GEN: Alert, oriented, NAD HEENT: Normal conjunctiva, sclera anicteric, CV: Regular rate and rhythm, no edema Pulm: Nonlabored respirations on 2L NC, mild Expiratory wheezes ABD: soft, nontender, nondistended Neuro: Normal speech, normal affect Vital Signs/Physical Exam: Temp Pulse Resp BP Pulse Ox 97.7 F 78 17 115/55 L 94 10/18/23 04:00 10/18/23 04:00 10/18/23 04:00 10/18/23 04:00 10/18/23 04:00 Laboratory Data at Discharge: WBC 9.00 thou/uL (4.3-10.9) 10/18/23 05:21 Hgb 10.5 g/dL (13.6-17.9) L 10/18/23 05:21 Hct 31.5 % (39.6-49.0) L 10/18/23 05:21 Plt Count 218 thou/uL (152-406) 10/18/23 05:21 PT 11.4 SECONDS (9.5-12.5) 10/16/23 22:44 INR 1.04 10/16/23 22:44 APTT 28.0 SECONDS (24.3-36.9) 10/16/23 22:44 Sodium 140 mEq/L (136-145) 10/18/23 05:21 Potassium 3.7 mEq/L (3.5-5.1) 10/18/23 05:21 BUN 29 mg/dL (7-18) H 10/18/23 05:21 Creatinine 0.89 mg/dL (0.70-1.30) 10/18/23 05:21 Glucose 138 mg/dL (74-106) H 10/18/23 05:21 Phosphorus 2.4 mg/dL (2.5-4.9) L 10/18/23 05:21 Magnesium 2.1 mg/dL (1.6-2.4) 10/18/23 05:21 Total Bilirubin 0.2 mg/dL (0.2-1.0) 10/18/23 05:21 AST < 4 U/L (15-37) L 10/18/23 05:21 ALT 14 U/L (16-61) L 10/18/23 05:21 Alkaline Phosphatase 44 U/L (45-117) L 10/18/23 05:21 Home Medications: Roflumilast [Daliresp*] 500 mcg PO DAILY #0 09/13/23 Fluticasone/Umeclidin/Vilanter [Trelegy Ellipta 100-62.5-25] 1 each IH DAILY 30 Days #1 inhaler 09/15/23 Albuterol Neb [Proventil 0.083% Neb Soln] 2.5 mg IH Q6H 10/17/23 Albuterol Sulfate [Albuterol Sulfate Hfa] 2 puff IH PRN PRN 10/17/23 Benazepril HCl 10 mg PO DAILY 10/17/23 Ipratropium Ralph 1 vial.neb IH Q6H PRN 10/17/23 predniSONE [Prednisone] 20 mg PO BID 4 Days #8 tab 10/18/23 New Medications: predniSONE [Prednisone] 20 mg PO BID 4 Days #8 tab Physician Discharge Instructions: Patient presented with worsening shortness of breath. CXR with chronic lung findings however no acute findings. Suspect acute COPD exacerbation. O2 sats were 65% on room air on admission. Patient was briefly placed on BiPAP for < 24 hours and deescalated to nasal cannula. Patient's breathing improved with steroids, duonebs, and oxygen supplementation. Patient also received ~3 days of IV azithromycin as a precaution to cover possible infection / pneumonia however suspect symptoms are more consistent with COPD exacerbation. No antibiotics warranted on discharge. Patient was feeling better, wanting to go home, breathing more comfortably on his home oxygen baseline, and deemed stable for discharge. Patient is to complete short course of oral prednisone on discharge. Medications: Prednisone - twice a day for 4 days Continue other home medications as previously prescribed. Follow up: PCP 3-5 days Pulmonology in 2-4 weeks Followup: NONE,NONE [Primary Care Provider] - Time spent managing pt's care (in minutes): 45
[2023-10-18 08:43] VITALS: BP 120/60; TEMP 97.5
[2023-10-18] MEDS: ENOXAPARIN 40 MG/0.4 ML SQ SCH (09:11)
[2023-10-18] MEDS: predniSONE 20 MG TAB PO SCH (09:11)
[2023-10-18 09:55] LABS: Blood Morphology Comment NOT SEEN (NOT SEEN); Platelet Estimate ADEQ; White Blood Cell Scan OK (OK)
--- NOTE | 2023-10-20 13:41 | EKG ---
Test Date: 2023-10-16 Test Time: 22:35:41 Director Of Trauma: BYRON MEASUREMENT RESULTS: Intervals: Rate: 102 ND: 160 QRSD: 100 QT: 356 QTc: 463 [place]: P: 87 ND: 160 QRS: 87 T: 74 INTERPRETIVE STATEMENTS: Sinus tachycardia Otherwise normal ECG Compared to ECG 09/14/2023 14:26:55 Sinus rhythm no longer present Sinus arrhythmia no longer present Electronically Signed On 10-20-23 13:26:44 WEEDER by Ric Pandya
== END 2023-10-18 12:21 | disposition home health service (06) | DRG 189 ==
LOC: ER 22:29 → ERHOLD 10-17 00:58 → 2ND 10-17 08:03
PROVIDERS: ADMIT Internal Medicine; ATTEND Hospitalist
PROC: 5A09457 Assistance with Respiratory Ventilation, 24-96 Consecutive Hours, Continuous Positive Airway Pressure (ICD-10-PCS; principal; 2023-10-17)
DX: J96.21 Acute and chronic respiratory failure with hypoxia (principal); J44.1 Chronic obstructive pulmonary disease with (acute) exacerbation; E87.3 Alkalosis; E78.5 Hyperlipidemia, unspecified; I10 Essential (primary) hypertension; I48.0 Paroxysmal atrial fibrillation; I25.2 Old myocardial infarction; F17.210 Nicotine dependence, cigarettes, uncomplicated; Z86.73 Personal history of transient ischemic attack (TIA), and cerebral infarction without residual deficits; Z90.49 Acquired absence of other specified parts of digestive tract; Z99.81 Dependence on supplemental oxygen; Z79.52 Long term (current) use of systemic steroids; Z79.899 Other long term (current) drug therapy; Z95.810 Presence of automatic (implantable) cardiac defibrillator
CPT/HCPCS: 36415; 71045; 80053; 81003; 83605; 83735; 84100; 84484; 85025; 85610; 85730; 87040; 93005; 94640; 94660; J1650; J2930; J3475; J7050; J7512; J7613; J7644

== ENCOUNTER 2024-01-31 15:43 | Inpatient (IN) | payer OTHER ==
[2024-01-31] MEDS ORDERED: LEVALBUTEROL 1.25 MG/3 ML NEB ONE (16:05)
[2024-01-31] MEDS ORDERED: IPRATROPIUM BROM 0.5MG/2.5ML ONE (16:05)
[2024-01-31] MEDS ORDERED: FAMOTIDINE 20 MG/2 ML VIAL IV ONE (16:05)
[2024-01-31] MEDS ORDERED: METHYLPREDNISOLONE 125 MG INJ ONE (16:05)
[2024-01-31] MEDS ORDERED: dexAMETHasone 10 MG/ML VIAL ONE (16:05)
[2024-01-31] MEDS ORDERED: NA CHLORIDE 0.9% 1,000 ML ONE (16:06)
[2024-01-31] MEDS ORDERED: NA CHLORIDE 0.9% 500 ML ONE (16:06)
[2024-01-31] MEDS ORDERED: Levofloxacin500mg IV 500 MG/100 ML BAG IV ONE (16:06)
--- NOTE | 2024-01-31 16:19 | EDPHYS ---
Physician Documentation [facility] Name: Juan C Monge Age: 63 yrs Sex: Male : 1960 Arrival Date: 01/31/2024 Time: 15:43 Bed 2 Private MD: ED Physician Sam Lindsey HPI: 01/30 16:06 This 63 yrs old Male presents to ER via Wheelchair with complaints of belén Breathing Difficulty. 16:06 The patient has shortness of breath with light activity. Onset: The symptoms/episode belén began/occurred 3 day(s) ago. Duration: The symptoms are continuous, and are steadily getting worse. The patient's shortness of breath is aggravated by coughing, is alleviated by nothing. Associated signs and symptoms: Pertinent positives: non-productive cough. Severity of symptoms: At their worst the symptoms were moderate in the emergency department the symptoms are unchanged. The patient has experienced similar episodes in the past, multiple times. Historical: - Allergies: 15:47 No Known Allergies; ll1 - PMHx: 15:47 COPD; CVA; Hyperlipidemia; Hypertension; Myocardial infarction; skull fracture; ll1 - PSHx: 15:47 Appendectomy; pacemaker; ll1 - Immunization history:: Adult Immunizations up to date. - Infectious Disease History:: Denies. - Social history:: Smoking status: Patient reports the use of cigarette tobacco products. ROS: 16:11 Constitutional: Negative for fever, chills, and weight loss, Eyes: Negative for injury, belén pain, redness, and discharge, ENT: Negative for injury, pain, and discharge, Neck: Negative for injury, pain, and swelling, Cardiovascular: Negative for chest pain, palpitations, and edema, Abdomen/GI: Negative for abdominal pain, nausea, vomiting, diarrhea, and constipation, Back: Negative for injury and pain, : Negative for injury, bleeding, discharge, and swelling, MS/Extremity: Negative for injury and deformity, Neuro: Negative for headache, weakness, numbness, tingling, and seizure, Psych: Negative for depression, anxiety, suicide ideation, homicidal ideation, and hallucinations, Allergy/Immunology: Negative for hives, rash, and allergies, Endocrine: Negative for neck swelling, polydipsia, polyuria, polyphagia, and marked weight changes, Hematologic/Lymphatic: Negative for swollen nodes, abnormal bleeding, and unusual bruising, 16:11 Respiratory: Positive for cough, shortness of breath, wheezing, expiratory, 16:11 Skin: Positive for pallor, Exam: 16:11 Constitutional: This is a well developed, well nourished patient who is awake, alert, belén and in no acute distress. Head/Face: Normocephalic, atraumatic. Eyes: Pupils equal round and reactive to light, extra-ocular motions intact. Lids and lashes normal. Conjunctiva and sclera are non-icteric and not injected. Cornea within normal limits. Periorbital areas with no swelling, redness, or edema. ENT: Nares patent. No nasal discharge, no septal abnormalities noted. Tympanic membranes are normal and external auditory canals are clear. Oropharynx with no redness, swelling, or masses, exudates, or evidence of obstruction, uvula midline. Mucous membranes moist. Neck: Trachea midline, no thyromegaly or masses palpated, and no cervical lymphadenopathy. Supple, full range of motion without nuchal rigidity, or vertebral point tenderness. No Meningismus. Chest/axilla: Normal chest wall appearance and motion. Nontender with no deformity. No lesions are appreciated. Cardiovascular: Regular rate and rhythm with a normal S1 and S2. No gallops, murmurs, or rubs. Normal PMI, no JVD. No pulse deficits. Abdomen/GI: Soft, non-tender, with normal bowel sounds. No distension or tympany. No guarding or rebound. No evidence of tenderness throughout. Back: No spinal tenderness. No costovertebral tenderness. Full range of motion. Male : Normal genitalia with no discharge or lesions. Skin: Warm, dry with normal turgor. Normal color with no rashes, no lesions, and no evidence of cellulitis. MS/ Extremity: Pulses equal, no cyanosis. Neurovascular intact. Full, normal range of motion. Neuro: Awake and alert, GCS 15, oriented to person, place, time, and situation. Cranial nerves II-XII grossly intact. Motor strength 5/5 in all extremities. Sensory grossly intact. Cerebellar exam normal. Normal gait. Psych: Awake, alert, with orientation to person, place and time. Behavior, mood, and affect are within normal limits. 16:11 Respiratory: moderate respiratory distress is noted, Respirations: labored breathing, that is moderate, Breath sounds: decreased breath sounds, that are moderate, are located in both bases, Respiratory rate: 28 16:11 Musculoskeletal/extremity: ROM: no acute changes, intact in all extremities, full active range of motion, full passive range of motion, Circulation is intact in all extremities. Sensation intact. Compartment Syndrome exam of affected extremity: is normal. Weight bearing: able to fully bear weight, without difficulty, DVT Exam: no pain, no swelling, no tenderness, negative Homans' sign noted on exam, no appreciated bluish discoloration, no erythema, no increased warmth, Vital Signs: 15:45 Pulse 82; Resp 28; Pulse Ox 90% on R/A; jl7 15:49 Weight 68.04 kg; Height 5 ft. 10 in. ; ll1 16:30 BP 125 / 79; Pulse 72; Resp 21; Pulse Ox 100% on BiPAP; me1 17:30 BP 121 / 69; Pulse 77; Resp 20; Pulse Ox 100% on 4 lpm NC; me1 18:00 BP 116 / 63; Pulse 77; Resp 20; Pulse Ox 100% on 4 lpm NC; me1 18:30 BP 118 / 65; Pulse 4; Resp 20; Pulse Ox 100% on 4 lpm NC; me1 15:49 Body Mass Index 21.52 (68.04 kg, 177.8 cm) ll1 MDM: 15:46 Patient medically screened. belén 16:13 Differential diagnosis: Anemia Anxiety Reaction asthma, Bronchitis CHF exacerbation, belén Chronic Obstructive Pulmonary Disease pneumonia, pulmonary edema, reactive airway disease, Sepsis Unstable Angina. Antibiotic administration: Levaquin given. Differential Diagnosis: Influenza Upper Respiratory Infection Sinusitis Pharyngitis Otitis Media Asthma Exacerbation Viral Syndrome Pneumonia Tracheal Injury. Immunization status: Pneumococcal vaccine: within last 5 years. Influenza vaccine: within last 5 years. Data reviewed: vital signs, nurses notes, lab test result(s), EKG, radiologic studies, plain films. Consideration of Admission/Observation Patient was admitted/placed on observation. Escalation of care including admission/observation considered. I considered the following discharge prescriptions or medication management in the emergency department Medications were administered in the Emergency Department. See MAR. Test considered but Not performed: CT: no ct chest. Care significantly affected by the following chronic conditions: Hypertension, Chronic Obstructive Pulmonary Disease, cva, tobacco abuse. Counseling: I had a detailed discussion with the patient and/or guardian regarding the historical points, exam findings, and any diagnostic results supporting the discharge/admit diagnosis, lab results, radiology results, the need for further work-up and treatment in the hospital. 01/30 15:48 Order name: ABG [facility] 01/30 16:30 Order name: Basic Metabolic Panel [facility] 01/30 16:30 Order name: Liver (Hepatic) Function [facility] 01/30 16:30 Order name: Troponin High Sensitivity [facility] 01/30 16:30 Order name: NT PRO-BNP [facility] 01/30 16:30 Order name: Magnesium [facility] 01/30 16:30 Order name: CBC with Automated Diff [facility] 01/30 16:30 Order name: Protime (+INR) [facility] 01/30 16:30 Order name: PTT, Activated Partial Thromb [facility] 01/30 16:30 Order name: Blood Culture [facility] 01/30 16:40 Order name: CBC with Automated Diff; Complete Time: 17:48 [facility] 01/30 16:40 Order name: Protime (+INR); Complete Time: 17:48 [facility] 01/30 16:40 Order name: PTT, Activated Partial Thromb; Complete Time: 17:48 [facility] 01/30 16:54 Order name: ABG Arterial Blood Gas [facility] 01/30 16:55 Order name: ABG Arterial Blood Gas; Complete Time: 17:48 [facility] 01/30 16:59 Order name: Basic Metabolic Panel; Complete Time: 17:48 [facility] 01/30 16:59 Order name: Liver (Hepatic) Function; Complete Time: 17:48 [facility] 01/30 16:59 Order name: Troponin High Sensitivity; Complete Time: 17:48 [facility] 01/30 16:59 Order name: NT PRO-BNP; Complete Time: 17:48 [facility] 01/30 16:59 Order name: Magnesium; Complete Time: 17:48 [facility] 01/30 15:48 Order name: XRAY Chest (1 view) [facility] 01/30 15:48 Order name: BIPAP [facility] 01/30 16:55 Order name: Chest Single View [facility] 01/30 18:10 Order name: RAD [facility] 01/30 15:48 Order name: EKG; Complete Time: 15:49 [facility] 01/30 15:48 Order name: Cardiac monitoring; Complete Time: 15:57 [facility] 01/30 15:48 Order name: EKG - Nurse/Tech; Complete Time: 16:18 [facility] 01/30 15:48 Order name: IV Saline Lock; Complete Time: 16:18 [facility] 01/30 15:48 Order name: Labs collected and sent; Complete Time: 16:18 [facility] 01/30 15:48 Order name: O2 Per Protocol; Complete Time: 15:57 [facility] 01/30 15:48 Order name: O2 Sat Monitoring; Complete Time: 15:57 [facility] Administered Medications: 16:09 Drug: Levalbuterol Inhalation 3.75 mg Inhalation once Route: Inhalation; kc6 18:54 Follow up: Response: No adverse reaction; Wheezing diminished me1 16:09 Drug: Ipratropium Inhalation Aerosol 0.5 mg Inhalation once Route: Inhalation; kc6 18:55 Follow up: Response: No adverse reaction; Wheezing diminished me1 16:21 Drug: NS 0.9% IV 500 ml IV at bolus once Route: IV; Rate: bolus; Site: left forearm; me1 18:53 Follow up: Response: No adverse reaction; IV Status: Completed infusion me1 16:38 Drug: Famotidine IVP 20 mg IVP once; dilute with 10 mL 0.9% NaCl; give over 2 minutes me1 Route: IVP; Site: left forearm; 18:53 Follow up: Response: No adverse reaction me1 16:38 Drug: MethylPrednisoLONE IVP 125 mg IVP once Route: IVP; Site: left forearm; me1 18:53 Follow up: Response: No adverse reaction me1 16:38 Drug: NS 0.9% IV 1000 ml IV at 125 ml/hr continuous Route: IV; Rate: 125 ml/hr; Site: me1 left forearm; 18:54 Follow up: IV Status: Infusion continued upon admission me1 16:38 Drug: levofloxacin IVPB 500 mg 100 ml IVPB once over 60 mins Volume: 100 ml; Route: me1 IVPB; Infused Over: 60 mins; Site: left forearm; 18:55 Follow up: Response: No adverse reaction; IV Status: Completed infusion me1 16:38 Drug: Decadron - Dexamethasone IVP 10 mg IVP once Route: IVP; Site: left forearm; me1 18:55 Follow up: Response: No adverse reaction me1 17:41 Drug: Nicoderm CQ Transdermal Patch 21 mg/24 hr 1 patches Transdermal once Route: me1 Transdermal; Site: anterior chest wall; 18:55 Follow up: Response: No adverse reaction me1 Disposition Summary: 01/31/24 16:19 Hospitalization Ordered Notes: Hospitalization Status: Inpatient Admission belén Provider: Dedrick Parish cha Location: Telemetry/MedSurg (Inpatient) belén Condition: Fair belén Problem: new belén Symptoms: have improved belén Bed/Room Type: Standard belén Room Assignment: 209(01/31/24 17:58) ll1 Diagnosis - Dyspnea belén - Acute and chronic respiratory failure with hypoxia belén - Tobacco abuse counseling belén - Tobacco use belén - Hypoxemia belén - Acute and chronic respiratory failure with hypercapnia belén Forms: - Medication Reconciliation Form belén - SBAR form belén - Leadership Thank You Letter belén Signatures: Dispatcher [employer] EDSam Estrada MD MD cha Leal, Jahala RN RN jl7 Kiera Gregg RN RN ll1 Emelina Rodriguez RN RN kc6 Aicha Sevilla RN RN me1 Corrections: (The following items were deleted from the chart) 15:49 15:49 BASIC METABOLIC PANEL+C.LAB.BRZ ordered. EDMS EDMS 15:49 15:49 CBC+H.LAB.BRZ ordered. EDMS EDMS 15:49 15:49 HEPATIC FUNCTION+C.LAB.BRZ ordered. EDMS EDMS 15:49 15:49 MAGNESIUM+C.LAB.BRZ ordered. EDMS EDMS 15:49 15:49 PROBNP+C.LAB.BRZ ordered. EDMS EDMS 15:49 15:49 PROTIME (+INR)+COAG.LAB.BRZ ordered. EDMS EDMS 15:49 15:49 Troponin High Sensitivity+C.LAB.BRZ ordered. EDMS EDMS 15:49 15:49 TYPE AND SCREEN+BB.LAB.BRZ ordered. EDMS EDMS 15:49 15:49 BLOOD CULTURE*+BA.LAB.BRZ ordered. EDMS EDMS 15:49 15:49 LACTATE+C.LAB.BRZ ordered. EDMS EDMS 17:58 16:19 belén ll1
--- NOTE | 2024-01-31 16:19 | ER ---
Nurse's Notes [facility] Name: Juan C Monge Age: 63 yrs Sex: Male : 1960 Arrival Date: 01/31/2024 Time: 15:43 Bed 2 Private MD: Diagnosis: Dyspnea;Acute and chronic respiratory failure with hypoxia;Tobacco abuse counseling;Tobacco use;Hypoxemia;Acute and chronic respiratory failure with hypercapnia Presentation: 01/30 15:47 Coronavirus screen: Client denies travel out of the [place] in the last 14 days. ll1 difficulty breathing, shortness of breath, Client presents with at least one sign or symptom that may indicate coronavirus-19. Standard/surgical mask placed on the client. Ebola Screen: Patient denies travel to an Ebola-affected area in the 21 days before illness onset. Initial Sepsis Screen: Does the patient meet any 2 criteria? No. Patient's initial sepsis screen is negative. Does the patient have a suspected source of infection? No. Patient's initial sepsis screen is negative. Risk Assessment: Do you want to hurt yourself or someone else? Patient reports no desire to harm self or others. 15:47 Method Of Arrival: Wheelchair ll1 15:49 Acuity: JESSI 2 ll1 15:51 Chief complaint: Patient states: Shortness of breath x 3-4 days. Onset of symptoms is jl7 unknown. Care prior to arrival: None. Triage Assessment: 15:51 General: Appears distressed, uncomfortable, slender, Behavior is cooperative, anxious, jl7 restless. Pain: Denies pain. Respiratory: Airway is patent Respiratory effort is even, labored, Respiratory pattern is symmetrical, tachypnea. Derm: Skin is dry, Skin is pale, Skin temperature is warm. Historical: - Allergies: 15:47 No Known Allergies; ll1 - PMHx: 15:47 COPD; CVA; Hyperlipidemia; Hypertension; Myocardial infarction; skull fracture; ll1 - PSHx: 15:47 Appendectomy; pacemaker; ll1 - Immunization history:: Adult Immunizations up to date. - Infectious Disease History:: Denies. - Social history:: Smoking status: Patient reports the use of cigarette tobacco products. Screenin:[facility] ED Fall Risk Assessment (Adult) History of falling in the last 3 months, me1 including since admission No falls in past 3 months (0 pts) Confusion or Disorientation No (0 pts) Intoxicated or Sedated No (0 pts) Impaired Gait No (0 pts) Mobility Assist Device Used No (0 pt) Altered Elimination No (0 pt) Score/Fall Risk Level 0 - 2 = Low Risk Maintained a safe environment, Provided non-skid footwear, Hourly rounding (assess needs \T\ fall precautionary measures) done. Abuse screen: Denies threats or abuse. Nutritional screening: No deficits noted. Tuberculosis screening: No symptoms or risk factors identified. Assessment: 16:00 General: Appears distressed, uncomfortable, ill, well developed, well nourished, me1 Behavior is calm, cooperative, appropriate for age, Reports increasing sob over the past few days. Pain: Denies pain. Neuro: Level of Consciousness is awake, alert, obeys commands, Oriented to person, place, time, situation, Appropriate for age. Cardiovascular: Capillary refill < 3 seconds Patient's skin is warm and dry. Respiratory: Reports shortness of breath at rest cough that is persistent labored breathing Airway is patent Respiratory effort is labored, pursed lip, Respiratory pattern is symmetrical, tachypnea. GI: No signs and/or symptoms were reported involving the gastrointestinal system. : No signs and/or symptoms were reported regarding the genitourinary system. EENT: No signs and/or symptoms were reported regarding the EENT system. Derm: Skin is intact, is healthy with good turgor, Skin is pink, warm \T\ dry. Musculoskeletal: No signs and/or symptoms reported regarding the musculoskeletal system. 17:28 General: taken off bipap to eat. Patient has finished eating and is refusing the bipap me1 at this time. Did agree to put the bipap back on after while. . Vital Signs: 15:45 Pulse 82; Resp 28; Pulse Ox 90% on R/A; jl7 15:49 Weight 68.04 kg; Height 5 ft. 10 in. ; ll1 16:30 BP 125 / 79; Pulse 72; Resp 21; Pulse Ox 100% on BiPAP; me1 17:30 BP 121 / 69; Pulse 77; Resp 20; Pulse Ox 100% on 4 lpm NC; me1 18:00 BP 116 / 63; Pulse 77; Resp 20; Pulse Ox 100% on 4 lpm NC; me1 18:30 BP 118 / 65; Pulse 4; Resp 20; Pulse Ox 100% on 4 lpm NC; me1 15:49 Body Mass Index 21.52 (68.04 kg, 177.8 cm) 1 ED Course: 15:44 Patient arrived in ED. 1 15:46 Sam Lindsey MD is Attending Physician. [facility] 15:46 Arm band placed on Patient placed in an exam room, on a stretcher. 1 15:49 Triage completed. 1 15:50 Aicha Sevilla, SERA is Primary Nurse. me1 16:00 Patient has correct armband on for positive identification. Bed in low position. Call il1 light in reach. Side rails up X2. Provided Education on: POC. Verbalized understanding. . Client placed on continuous cardiac and pulse oximetry monitoring. NIBP monitoring applied. senior media planner on. Pulse ox on. NIBP on. 16:00 No provider procedures requiring assistance completed. il1 16:12 Initial lab(s) drawn, by il, sent to lab. First set of blood cultures drawn by il, EKG il1 done, by ED staff, reviewed by Sam Lindsey MD. 16:17 Dedrick Parish MD is Hospitalizing Provider. [facility] 16:17 Inserted saline lock: 20 gauge in left forearm, using aseptic technique. il1 16:24 Second set of blood cultures drawn by il. il1 16:38 Blood Culture Sent. il1 16:38 ABG Sent. il1 17:48 Chest Single View In Process Unspecified. EDMS 19:00 Patient admitted, IV remains in place. il1 Administered Medications: 16:09 Drug: Levalbuterol Inhalation 3.75 mg Inhalation once Route: Inhalation; 6 18:54 Follow up: Response: No adverse reaction; Wheezing diminished il1 16:09 Drug: Ipratropium Inhalation Aerosol 0.5 mg Inhalation once Route: Inhalation; 6 18:55 Follow up: Response: No adverse reaction; Wheezing diminished [facility] 16:21 Drug: NS 0.9% IV 500 ml IV at bolus once Route: IV; Rate: bolus; Site: left forearm; me1 18:53 Follow up: Response: No adverse reaction; IV Status: Completed infusion il1 16:38 Drug: Famotidine IVP 20 mg IVP once; dilute with 10 mL 0.9% NaCl; give over 2 minutes me1 Route: IVP; Site: left forearm; 18:53 Follow up: Response: No adverse reaction me1 16:38 Drug: MethylPrednisoLONE IVP 125 mg IVP once Route: IVP; Site: left forearm; me1 18:53 Follow up: Response: No adverse reaction me1 16:38 Drug: NS 0.9% IV 1000 ml IV at 125 ml/hr continuous Route: IV; Rate: 125 ml/hr; Site: me1 left forearm; 18:54 Follow up: IV Status: Infusion continued upon admission me1 16:38 Drug: levofloxacin IVPB 500 mg 100 ml IVPB once over 60 mins Volume: 100 ml; Route: me1 IVPB; Infused Over: 60 mins; Site: left forearm; 18:55 Follow up: Response: No adverse reaction; IV Status: Completed infusion me1 16:38 Drug: Decadron - Dexamethasone IVP 10 mg IVP once Route: IVP; Site: left forearm; me1 18:55 Follow up: Response: No adverse reaction me1 17:41 Drug: Nicoderm CQ Transdermal Patch 21 mg/24 hr 1 patches Transdermal once Route: me1 Transdermal; Site: anterior chest wall; 18:55 Follow up: Response: No adverse reaction me1 Medication: 19:00 VIS not applicable for this client. me1 Outcome: 16:19 Decision to Hospitalize by Provider. belén 19:00 Admitted to Med/surg accompanied by tech, via stretcher, room 209, with chart, Report me1 called to faxed report at 18:52. Receipt confirmed with Katie. 19:00 Condition: stable 19:00 Instructed on the need for admit, 19:29 Patient left the ED. rv Signatures: Dispatcher [employer] EDGA Sam Lindsey MD MD cha Leal, Jahala RN RN shani7 Jonas Matias RN RN rv Kiera Gregg RN RN ll1 Emelina Rodriguez RN RN kc6 Aicha Sevilla RN RN me1 Corrections: (The following items were deleted from the chart) 16:22 16:17 Inserted saline lock: 20 gauge in right forearm, using aseptic technique. me1 me1 17:29 17:27 General: me1 me1 18:56 15:47 Coronavirus screen: Client denies travel out of the [place] in the last 14 days. me1 difficulty breathing, shortness of breath, Client presents with at least one sign or symptom that may indicate coronavirus-19. Standard/surgical mask placed on the client. ll1 19:02 19:00 Admitted to Med/surg accompanied by tech, via stretcher, room 209, with chart, me1 Report called to faxed report at 18:52. me1
[2024-01-31 16:36] LABS: Absolute Lymphocytes (CBC) 0.7 K/uL (0.7-4.9); Absolute Monocytes 0.2 K/uL (0.1-1.3); Absolute Neutrophil 4.9 K/uL (1.8-8.0); Basophils % 0.1 % (0-1.3); Eosinophils % 0.2 % (0-4.4); Hematocrit 33.4 % (39.6-49.0); Hemoglobin 10.6 g/dL (13.6-17.9); Lymphocytes % 12.3 % (15.3-44.8); MCH 29.4 pg (27.0-35.0); MCHC 31.6 g/dL (32.0-36.0); MCV 92.9 fL (80-100); MPV 8.3 fL (7.6-11.3); Monocytes % 2.9 % (3.3-12.3); Neutrophils % 84.5 % (41.7-73.7); Platelets 225 thou/uL (152-406); RBC Red Blood Cell Count 3.59 M/uL (4.33-5.43); Red Cell Distribution Width 16.5 % (12.1-15.2)
[2024-01-31 16:39] LABS: PT Prothrombin Time 11.5 SECONDS (9.5-12.5); PTT, Activated Partial Thromb 27.3 SECONDS (24.3-36.9); Protime INR 1.05
--- OUTSIDE RECORDS SUMMARY | 2024-01-31 16:41 | XMS REPORT | Continuity of Care Document ---
Author Name Unknown Address [address] [facility] [address] [place] [address] [facility] thconnect Address [address] [facility] 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 Phone MILY MAY Primary Care Physician Unavailable HERMINIA OH Attending Clinician Unavailable NOMI MARY Attending Clinician Unavailable NOMI MARY Attending Clinician Unavailable Nomi Mary DO Attending Clinician Doctor Unassigned, Whitaker Attending Clinician U elaina Monge RN, Marika Friedman Attending Clinician [phone] ATANASOV, STRAHIL T Attending Clinician Unavaila ble GT WATTERSHIL T Attending Clinician Unavaila ble DameonRudy Attending Clinician Unavailable CARL ORLANDO Attending Clinician Unavailable CARL ORLANDO Attending Clinician Unavailable MILY MYA Attending Clinician April Mily Ruiz MD Attending Clinician Uday ZAMORA, Taylor Mary Attending Clinician Unavailab TRAVIS Katz Attending Clinician Unavailable Iza Portillo Attending Clinician [phone] Francisca Bryant DO Attending Clinician [phone] Travis Zeng MD Attending Clinician +[phone] PRADIP AUSTIN Attending Clinician Unavaila Pradip Du Attending Clinician +[phone] HERMINIA CHO Attending Clinician Unavailable Herminia Cho MD Attending Clinician +[phone] FRANCISCA BRYANT Attending Clinician Unavailab LOUIS Ham Attending Clinician Unavailable Louis Hong DO Attending Clinician [phone] Bessie Oswald MD Attending Clinician [phone] RACHAEL FLOWERS Attending Clinician Unavailable Rachael Flowers MD Attending Clinician [phone] LEOBARDO SLOAN Attending Clinician Unavailable Leobardo Sloan MD Attending Clinician +[phone] BESSIE OSWALD Attending Clinician Unavailable STEPHANIE ALMONTE Attending Clinician Unavail able Stephanie Almonte MD Attending Clinician +[phone] IZA VARMA Attending Clinician Unavailable Kathia Paula MD Attending Clinician [phone] Agapito Hackett MD Attending Clinician [phone] María Diaz DO Attending Clinician [phone] MARISOL DEVLIN Attending Clinician Unavailable Marisol Devlin MD Attending Clinician +[phone] Dedrick Toth MD Attending Clinician [phone] Cecy Caro LVN Attending Clinician Shanthi FRANCIS Carlo Attending Clinician + [phone] Beny SAWYER, Abi Attending Clinician +[phone] Clive Contreras MD Attending Clinician [phone] ERNESTO PIPER Attending Clinician Unavailable ERNESTO PIPER Attending Clinician Unavailable Krissy Powers MD Attending Clinician [phone] LEILA CHAPA Attending Clinician Unavailable Leila Chapa MD Attending Clinician [phone] Gramm AERONAUTICAL TEST ENGINEERJeanette Attending Clinician [phone] [facility] Lab Main Attending Clinician UnavailGokul Lewis MD Attending Clinician [phone] GOKUL TURNER Attending Clinician Unavailable , [facility] Surg Spec Procedure Attending Clinician Unavailable VIOLETA JEANETTE Jeramy Attending Clinician Unavailable Chris ZAMORA, Herminia S Attending Clinician UnavailTyrell Giraldo Attending Clinician UnavailRamesh Davis Attending Clinician [phone] Rudy Xiao Admitting Clinician Unavailable TRAVIS ZENG Admitting Clinician Unavailable Travis Zeng MD Admitting Clinician [phone] STEPHANIE ALMONTE Admitting Clinician Unavail able LOUIS HONG Admitting Clinician Unavailable María Diaz DO Admitting Clinician [phone] MARISOL DEVLIN Admitting Clinician Unavailable IZA VARMA Admitting Clinician Unavailable Clive Contreras MD Admitting Clinician [phone] KRISSY POWERS Admitting Clinician Unavailable Krissy Powers MD Admitting Clinician [phone] MARÍA DIAZ Admitting Clinician Unavailable HERMINIA CHO Admitting Clinician Unavailable SAUD SANDERS Admitting Clinician Unavailable Payers Payer Name Policy Type Policy Number Effective Date Expirati on Date Source [employer] MEDICARE GOLD [id number] 2018 00:00:00 [employer] CHOICE [id number] 2022 00:00:00 Problems Condition Name Condition Details Condition Category Status Onset Date Resolution Date Last Treatment Date Treating Clinician Comments Source Mitral regurgitat ion Mitral regurgitat ion Disease Active 2023-0 5-31 00:00: 00 [facility] Hypotensio n, unspecifie d hypotensio n type Hypotensio n, unspecifie d hypotensio n type Disease Active 5-30 00:00: 00 [facility] 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 Disease Active 5-03 00:00: 00 [facility] Confusion Confusion Disease Active 3-24 00:00: 00 [facility] Shortness of breath Shortness of breath Disease Active 3-11 00:00: 00 [facility] SOB (shortness of breath) SOB (shortness of breath) Disease Active 2- 00:00: 00 [facility] 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 heart failure Disease Active 2018-09 00:00: 00 [facility] PAF (paroxysma l atrial fibrillati on) PAF (paroxysma l atrial fibrillati on) Disease Active 2018-09 00:00: 00 [facility] NSVT (nonsustai charlette ventricula r tachycardi a) NSVT (nonsustai charlette ventricula r tachycardi a) Disease Active 2018-09 00:00: 00 [facility] Acute on chronic combined systolic and diastolic congestive heart failure Acute on chronic combined systolic and diastolic congestive heart failure Disease Active 2018-09 00:00: 00 [facility] Nonrheumat ic mitral valve stenosis Nonrheumat ic mitral valve stenosis Disease Active 2018-09 00:00: 00 [facility] COPD exacerbati on COPD exacerbati on Disease Active 2018-09 00:00: 00 [facility] Cigarette smoker Cigarette smoker Disease Active 2018-09 00:00: 00 [facility] Troponin I above reference range Troponin I above reference range Disease Active 2018-09 00:00: 00 [facility] Hyponatrem ia Hyponatrem ia Disease Active 2018-09 00:00: 00 [facility] Hypoxia Hypoxia Disease Active 2018-09 00:00: 00 [facility] Acute respirator y distress Acute respirator y distress Disease Active 2018-09 00:00: 00 [facility] Left heart failure Left heart failure Disease Active 2013-09 00:00: 00 [facility] Closed fracture of zygoma Closed fracture of zygoma Disease Active 2013-09 00:00: 00 Overview: Formattin g of this note might be different from the original. Chronic Fracture - not acute [facility] Fall Fall Disease Active 2013-09 00:00: 00 [facility] Atrial fibrillati on Atrial fibrillati on Disease Active 2013-09 00:00: 00 [facility] VT (ventricul ar tachycardi a) VT (ventricul ar tachycardi a) Disease Active 2013-09 00:00: 00 [facility] Allergies, Adverse Reactions, Alerts Allergy Name Allergy Type Status Severity Reaction(s) Onset Date Inactive Date Treating Clinician Comments Source No Known Allergie s DA Active U 2019-09 0 00:00: 00 [facility] No Known Allergie s DA Active U 2019-09 0 00:00: 00 [facility] NO KNOWN ALLERGIE S Drug Class Active [facility] Social History Social Habit Start Date Stop Date Quantity Comments Source [facility] History of tobacco use Passive smoker [facility] History SDOH Social Connections Get Together [facility] History SDOH Social Connections Zoroastrianism [facility] History SDOH Social Connections Membership [facility] History SDOH Social Connections Meetings [facility] History of Social function 2023-03-01 00:00:00 2023-03-01 00:00:00 [facility] Alcohol intake 2023-03-01 00:00:00 2023-03-01 00:00:00 Current drinker of alcohol (finding) [facility] History SDOH Housing Unable to Pay 2023-02-18 00:00:00 2023-02-18 00:00:00 2 [facility] History SDOH Housing Places Lived 2023-02-18 00:00:00 2023-02-18 00:00:00 1 [facility] History SDOH Housing Homeless Last Year 2023-02-18 00:00:00 2023-02-18 00:00:00 2 [facility] History SDOH Alcohol Frequency 2023-02-18 00:00:00 2023-02-18 00:00:00 1 [facility] History SDOH Social Connections Phone 2023-02-18 00:00:00 2023-02-18 00:00:00 5 [facility] History SDOH Social Connections Living 2023-02-18 00:00:00 2023-02-18 00:00:00 7 [facility] History SDOH Physical Activity DPW 2023-02-18 00:00:00 2023-02-18 00:00:00 0 [facility] History SDOH Physical Activity MPS 2023-02-18 00:00:00 2023-02-18 00:00:00 0 [facility] History SDOH Financial 2023-02-18 00:00:00 2023-02-18 00:00:00 5 [facility] History SDOH Food Worry 2023-02-18 00:00:00 2023-02-18 00:00:00 1 [facility] History SDOH Food Scarcity 2023-02-18 00:00:00 2023-02-18 00:00:00 1 [facility] History SDOH Transport Med 2023-02-18 00:00:00 2023-02-18 00:00:00 2 [facility] History SDOH Transport Non-Med 2023-02-18 00:00:00 2023-02-18 00:00:00 2 [facility] Exposure to SARS-CoV-2 (event) 2023-02-05 00:00:00 2023-02-15 15:15:00 Not sure [facility] History SDOH Alcohol Std Drinks 2022-12-02 00:00:00 2022-12-02 00:00:00 3 [facility] History SDOH Alcohol Binge 2022-12-02 00:00:00 2022-12-02 00:00:00 1 [facility] Cigarettes smoked current (pack per day) - Reported 2022-11-09 00:00:00 2022-11-09 00:00:00 [facility] Tobacco use and exposure 2022-11-09 00:00:00 2022-11-09 00:00:00 User of smokeless tobacco [facility] Education - What is the highest level of school you have completed or the highest degree you have received? 2022-11-09 00:00:00 2022-11-09 00:00:00 High school graduate [facility] Alcohol Comment 2014-08-27 00:00:00 2014-08-27 00:00:00 8 drinks per day [facility] Sex Assigned At 1960 00:00:00 1960 00:00:00 [facility] Smoking Status Start Date Stop Date Source Smokes tobacco daily 2022-11-09 00:00:00 [facility] Medications Ordered Medication Name Filled Medication Name Start Date Stop Date Current Medication? Ordering Clinician Indication Dosage Frequency Signature (SIG) Comments Components Source umjordyn sim (INCRUSE ELLIPTA) 62.5 mcg/actuati on DsDv 2022-09 0 00:00: 00 Yes [id number] 1{puff} Inhale 1 Puff in the morning. [facility] tiotropium 18 mcg inhalation 2022-09 0 00:00: 00 Yes 18ug Inhale 1 capsule in the morning. [facility] fluticasone propion-bella meteroL (ADVAIR DISKUS) 250-50 mcg/dose inhalation disk 04-19 00:00: 00 Yes 1{puff} Inhale 1 Puff in the morning and 1 Puff in the evening. [facility] albuterol 90 mcg/actuati on inhaler 04-19 00:00: 00 Yes 2{puff} Inhale 2 Puffs every 4 (four) hours as needed for Wheezing or Shortness of Breath. [facility] ipratropium -albuteroL 0.5 mg-3 mg(2.5 mg base)/3 mL nebulizer solution 04-19 00:00: 00 Yes [id number] 3mL Inhale 3 mL every 6 (six) hours as needed for Wheezing. [facility] tiotropium 18 mcg inhalation 04-19 00:00: 00 07-08 00:00 :00 No 18ug Inhale 1 capsule in the morning. [facility] albuterol 2.5 mg /3 mL (0.083 %) nebulizer solution 03-03 00:00: 00 Yes [id number] 2.5mg Inhale 3 mL every 4 (four) hours. May also nebulize one extra every 6 hours. [facility] donepeziL 5 mg tablet 03-01 00:00: 00 Yes [id number] 5mg Take 1 tablet by mouth in the morning. [facility] memantine 5 mg tablet 03-01 00:00: 00 Yes [id number] 5mg Take 1 tablet by mouth in the morning. [facility] busPIRone 10 mg tablet 02-18 16:15: 12 Yes 10mg Take 1 tablet by mouth in the morning and 1 tablet in the evening. [facility] rivaroxaban 15 mg tablet 02-18 16:15: 12 Yes 15mg Take 1 tablet by mouth in the morning. [facility] ASPIRIN ORAL 02-18 16:15: 12 Yes 81mg Take 81 mg by mouth in the morning. tablet [facility] predniSONE 20 mg tablet 02-18 00:00: 00 02-22 04:59 :00 No [id number] 40mg Take 2 tablets by mouth in the morning for 3 days. [facility] midodrine 5 mg tablet 02-17 00:00: 00 Yes [id number] 5mg Take 1 tablet by mouth every 8 (eight) hours as needed (Hypotensi on SBP <95 or DBP <50). [facility] midodrine (PROAMATINE ) tablet 5 mg 531 19:00: 00 Yes 5mg 5 mg, Oral, Q8H, First dose on Tue02/16/23 at 1400, Until Discontinu ed, [facility] rivarox[facility] (XARELTO) tablet 15 mg 02-16 14:00: 00 Yes 15mg 15 mg, Oral, DAILY, First dose on Tue02/16/23 at 0900, Until Discontinu ed, Routine [facility] montelukast (SINGULAIR) tablet 10 mg 02-16 14:00: 00 Yes 10mg 10 mg, Oral, DAILY, First dose on Tue02/16/23 at 0900, Until Discontinu ed, [facility] memantine (NAMENDA) tablet 5 mg 02-16 14:00: 00 Yes 5mg 5 mg, Oral, DAILY, First dose on Tue02/16/23 at 0900, Until Discontinu ed, Routine
food court team member approving Restricted medication : DEDRICK TOTH [facility] donepeziL (ARICEPT) tablet 5 mg 02-16 14:00: 00 Yes 5mg 5 mg, Oral, DAILY, First dose on Tue02/16/23 at 0900, Until Discontinu ed, Routine [facility] aspirin EC tablet 81 mg 02-16 14:00: 00 Yes 81mg 81 mg, Oral, DAILY, First dose on Tue02/16/23 at 0900, Until Discontinu ed [facility] docusate (COLACE) capsule 100 mg 02-16 14:00: 00 Yes 100mg 100 mg, Oral, DAILY, First dose on Tue02/16/23 at 0900, Until Discontinu ed, [facility] predniSONE (DELTASONE) tablet 40 mg 02-16 14:00: 00 02-21 13:59 :00 No 40mg 40 mg, Oral, DAILY, 5 doses, First dose on Tue02/16/23 at 0900, Last dose on Tue02/20/23 at 0900, [facility] sulfur hexafluorid e microsphr (LUMASON) injection 5 mL 02-16 14:00: 00 02-16 14:00 :00 No [id number] 5mL 5 mL, Intravenou s, ONCE, 1 dose, On Tue02/16/23 at 0900, Routine
food court team member approving Restricted medication : STEFFANIE REYES [facility] budesonide- formoteroL (SYMBICORT) 160-4.5 mcg/actuati on inhaler 2 Puff 02-16 13:00: 00 Yes 2{puff} 2 Puff, Inhalation , BID, First dose on Tue02/16/23 at 0800, Until Discontinu ed [facility] busPIRone (BUSPAR) tablet 10 mg 02-16 13:00: 00 Yes 10mg 10 mg, Oral, BID, First dose on Tue02/16/23 at 0800, Until Discontinu ed, Routine [facility] methylpredn isolone sod succ (SOLU-MEDRO L) injection 60 mg 02-16 05:43: 00 02-16 05:51 :00 No 60mg 60 mg, Intravenou s, ONCE, 1 dose, On Tue02/16/23 at 0045, 2 mL [facility] levoFLOXaci n in D5W (LEVAQUIN) [...]
Re stricted use approved by: ADC PROVIDER [facility] doxycycline hyclate (Vibramycin ) capsule 100 mg 02-16 01:02: 11 02-16 21:57 :07 No 100mg 100 mg, Oral, Q12H ABX, 10 doses, First dose on Tue02/15/23 at 2014, Last dose on Tue02/20/23 at 0815, MICHAEL
Re ason for Anti-Infec tive: Documented Infection< br>Documen anirudh Infection Site: Respirator y
Durat ion of Therapy: 7 days [facility] NaCl 0.9% (NS) IV infusion 1,000 mL 02-16 01:00: 00 02-16 12:47 :05 No 1000mL at 100 mL/hr, IV Infusion, CONTINUOUS , Starting on Tue02/15/23 at 2000, Until Tue02/16/23 at 0747, Routine [facility] ipratropium -albuteroL (DUONEB) 0.5 mg-3 mg(2.5 mg base)/3 mL nebulizer solution 3 mL 02-16 00:53: 35 Yes 3mL 3 mL, Inhalation , Q6HPRN, Starting on Tue02/15/23 at 1952, Until Discontinu ed, Routine, Wheezing, Shortness of Breath [facility] HYDROcodone -acetaminop hen (NORCO) 10-325 mg tablet 1 tablet 02-16 00:52: 26 Yes 1{tbl} 1 tablet, Oral, Q6HPRN, Starting on Tue02/15/23 at 1951, Until Discontinu ed, Routine, Pain (scale 7-10) [facility] traMADoL (ULTRAM) tablet 50 mg 02-16 00:52: 22 02-18 00:51 :22 No 50mg 50 mg, Oral, Q8HPRN, Starting on Tue02/15/23 at 1951, Until Elizabeth 02/17/23 at 1950, Routine, Pain (scale 4-6) [facility] acetaminoph en (TYLENOL) tablet 650 mg 02-16 00:52: 16 Yes 650mg 650 mg, Oral, Q6HPRN, Starting on Tue02/15/23 at 1951, Until Discontinu ed, Routine, Pain (scale 1-3) [facility] NaCl 0.9% (NS) bolus infusion 1,000 mL 02-15 22:15: 00 02-15 22:51 :00 No 1000mL at 999 mL/hr, 1,000 mL, IV Infusion, ONCE, 1 dose, On 02/15/23 at 1715, [facility] NaCl 0.9% (NS) bolus infusion 1,000 mL 02-15 21:30: 00 02-15 22:43 :00 No 1000mL at 999 mL/hr, 1,000 mL, IV Infusion, ONCE, 1 dose, On Tu02/15/23 at 1630, [facility] NaCl 0.9% (NS) bolus infusion 1,000 mL 02-15 20:45: 00 02-15 22:43 :00 No 1000mL at 999 mL/hr, 1,000 mL, IV Infusion, ONCE, 1 dose, On Tu02/15/23 at 1545, [facility] ipratropium -albuteroL (DUONEB) 0.5 mg-3 mg(2.5 mg base)/3 mL nebulizer solution 3 mL 02-05 22:15: 00 02-06 10:14 :00 No 3mL 3 mL, Inhalation , ONCE, 1 dose, On 02/05/23 at 1715, [facility] ipratropium -albuteroL (DUONEB) 0.5 mg-3 mg(2.5 mg base)/3 mL nebulizer solution 3 mL 02-05 21:15: 00 02-05 20:17 :00 No 3mL 3 mL, Inhalation , ONCE, 1 dose, On 02/05/23 at 1615, [facility] predniSONE (DELTASONE) tablet 40 mg 02-05 20:15: 00 02-05 20:18 :00 No 40mg 40 mg, Oral, ONCE, 1 dose, On 02/05/23 at 1515, [facility] levalbutero l (XOPENEX) nebulizer solution 2.5 mg 2023-0 5-19 21:15: 00 02-04 20:31 :00 No 2.5mg 2.5 mg, Inhalation , ONCE, 1 dose, On Tue02/04/23 at 1615, Routine [facility] ipratropium (ATROVENT) 0.02 % nebulizer solution 0.5 mg 02-04 21:15: 00 02-04 20:31 :00 No .5mg 0.5 mg, Inhalation , ONCE, 1 dose, On Tue02/04/23 at 1615, MICHAEL [facility] albuterol 90 mcg/actuati on inhaler 02-04 00:00: 00 04-19 00:00 :00 No [id number] 2{puff} Inhale 2 Puffs every 4 (four) hours as needed for Wheezing or Shortness of Breath. [facility] ity [facility] ipratropium -albuteroL (DUONEB) 0.5 mg-3 mg(2.5 mg base)/3 mL nebulizer solution 3 mL 02-03 21:00: 00 Yes 3mL 3 mL, Inhalation , QID, First dose on Tue02/03/23 at 1600, Until Discontinu ed, Routine [facility] methylpredn isolone sod succ (SOLU-MEDRO L) injection 125 mg 02-03 18:45: 00 02-03 18:16 :00 No 125mg 125 mg, Intravenou s, ONCE, 1 dose, On Tue02/03/23 at 1345, 2 mL [facility] ity [facility] ipratropium -albuteroL (DUONEB) 0.5 mg-3 mg(2.5 mg base)/3 mL nebulizer solution 3 mL 02-02 23:15: 00 02-02 22:13 :00 No 3mL 3 mL, Inhalation , ONCE, 1 dose, On Tue02/02/23 at 1815, Routine [facility] montelukast 10 mg tablet 01-31 00:00: 00 Yes [id number] 10mg Take 1 tablet by mouth in the morning. [facility] fluticasone propion-bella meteroL (ADVAIR DISKUS) 250-50 mcg/dose inhalation disk 01-31 00:00: 00 04-19 00:00 :00 No [id number] 1{puff} Inhale 1 Puff in the morning and 1 Puff in the evening. [facility] tiotropium 18 mcg inhalation 01-31 00:00: 00 04-19 00:00 :00 No [id number] 18ug Inhale 1 capsule in the morning. [facility] albuterol 90 mcg/actuati on inhaler 01-31 00:00: 00 02-04 00:00 :00 No [id number] 2{puff} Inhale 2 Puffs every 4 (four) hours as needed for Wheezing, Shortness of Breath or Bronchospa sm. [facility] ipratropium -albuteroL (DUONEB) 0.5 mg-3 mg(2.5 mg base)/3 mL nebulizer solution 3 mL 01-29 14:30: 00 01-29 13:29 :00 No 3mL 3 mL, Inhalation , ONCE, 1 dose, On 01/29/23 at 0930, MICHAEL [facility] predniSONE (DELTASONE) tablet 60 mg 01-29 13:30: 00 01-29 13:22 :00 No 60mg 60 mg, Oral, ONCE, 1 dose, On 01/29/23 at 0830, MICHAEL [facility] ipratropium -albuteroL (DUONEB) 0.5 mg-3 mg(2.5 mg base)/3 mL nebulizer solution 3 mL 01-27 13:00: 00 Yes 3mL 3 mL, Inhalation , QID, First dose on Elizabeth 01/27/23 at 0800, Until Discontinu ed, Routine [facility] ipratropium -albuteroL (DUONEB) 0.5 mg-3 mg(2.5 mg base)/3 mL nebulizer solution 3 mL 01-24 18:00: 00 01-24 18:15 :00 No 3mL 3 mL, Inhalation , ONCE, 1 dose, On Tue01/24/23 at 1300, MICHAEL [facility] furosemide (LASIX) injection 40 mg 01-24 18:00: 00 01-24 18:42 :00 No 40mg 40 mg, IV Push, ONCE, 1 dose, On Tue01/24/23 at 1300, MICHAEL [facility] aspirin tablet 325 mg 01-24 18:00: 00 01-24 18:44 :00 No 325mg 325 mg, Oral, ONCE, 1 dose, On Tue01/24/23 at 1300, STAT [facility] busPIRone 10 mg tablet 01-24 15:48: 43 Yes 10mg Take 1 tablet by mouth in the morning and 1 tablet in the evening. [facility] rivaroxaban 15 mg tablet 01-24 15:48: 43 Yes 15mg Take 1 tablet by mouth in the morning. [facility] ASPIRIN ORAL 01-24 15:48: 43 Yes 81mg Take 81 mg by mouth in the morning. tablet [facility] levalbutero l (XOPENEX) nebulizer solution 1.25 mg 01-23 00:15: 00 01-22 23:35 :00 No 1.25mg 1.25 mg, Inhalation , ONCE, 1 dose, On 01/22/23 at 1915, Routine [facility] ipratropium (ATROVENT) 0.02 % nebulizer solution 0.5 mg 01-22 23:30: 00 01-22 23:36 :00 No .5mg 0.5 mg, Inhalation , ONCE, 1 dose, On 01/22/23 at 1830, [facility] diltiazem (CARDIZEM) tablet 30 mg 01-21 23:00: 00 Yes 30mg 30 mg, Oral, Q6H, First dose on Tue01/21/23 at 1800, Until Discontinu ed, Routine [facility] methylpredn isolone sod succ (SOLU-MEDRO L) injection 125 mg 01-21 23:00: 00 Yes 125mg 125 mg, Intravenou s, Q6H, First dose on Tue01/21/23 at 1800, Until Discontinu ed, Routine [facility] ipratropium -albuteroL (DUONEB) 0.5 mg-3 mg(2.5 mg base)/3 mL nebulizer solution 3 mL 01-21 20:45: 00 01-21 19:54 :00 No 3mL 3 mL, Inhalation , ONCE, 1 dose, On Tue01/21/23 at 1545, Routine [facility] diltiazem (CARDIZEM IV) injection 15 mg 01-21 19:45: 00 01-21 20:06 :00 No 15mg 15 mg, IV Push, ONCE, 1 dose, On Tue01/21/23 at 1445, STAT
Fa culty member approving Restricted medication : LOUIS HONG [facility] NaCl 0.9% (NS) bolus infusion 1,000 mL 01-21 19:45: 00 01-21 22:17 :00 No 1000mL at 999 mL/hr, 1,000 mL, IV Infusion, ONCE, 1 dose, On Tue01/21/23 at 1445, STAT [facility] predniSONE 20 mg tablet 01-20 00:00: 00 01-25 04:59 :00 No [id number] 40mg Take 2 tablets by mouth in the morning for 4 days. [facility] enoxaparin (LOVENOX) injection 40 mg 01-19 22:00: 00 Yes 40mg 40 mg, Subcutaneo us, DAILY, First dose on Tue01/19/23 at 1700, Until Discontinu ed, Routine [facility] levalbutero l (XOPENEX) nebulizer solution 1.25 mg 01-19 21:00: 00 Yes 1.25mg 1.25 mg, Inhalation , QID, First dose (after last modificati on) on Tue01/19/23 at 1600, Until Discontinu ed, Routine [facility] ipratropium (ATROVENT) 0.02 % nebulizer solution 0.5 mg 01-19 21:00: 00 Yes .5mg 0.5 mg, Inhalation , QID, First dose (after last modificati on) on Tue01/19/23 at 1600, Until Discontinu ed, Routine [facility] busPIRone 10 mg tablet 01-19 19:49: 16 Yes 10mg Take 1 tablet by mouth in the morning and 1 tablet in the evening. [facility] rivaroxaban 15 mg tablet 01-19 19:49: 16 Yes 15mg Take 1 tablet by mouth in the morning. [facility] ASPIRIN ORAL 01-19 19:49: 16 Yes 81mg Take 81 mg by mouth in the morning. tablet [facility] benazepriL 10 mg tablet 01-19 17:28: 05 01-19 00:00 :00 No 10mg Take 1 tablet by mouth in the morning. [facility] potassium chloride (KCL-20 ORAL) 01-19 17:28: 01-19 00:00 :00 No 1{tbl} Take 1 tablet by mouth in the morning and 1 tablet in the evening. [facility] aspirin chewable tablet 81 mg 01-19 14:00: 00 Yes 81mg 81 mg, Oral, DAILY, First dose on Tue01/19/23 at 0900, Until Discontinu ed [facility] predniSONE (DELTASONE) tablet 40 mg 01-19 14:00: 00 01-24 13:59 :00 No 40mg 40 mg, Oral, DAILY, 5 doses, First dose on Tue01/19/23 at 0900, Last dose on Tue01/23/23 at 0900, Routine [facility] busPIRone (BUSPAR) tablet 10 mg 01-19 13:00: 00 Yes 10mg 10 mg, Oral, BID, First dose on Tue01/19/23 at 0800, Until Discontinu ed, Routine [facility] ipratropium (ATROVENT) 0.02 % nebulizer solution 0.5 mg 01-19 13:00: 00 01-19 19:13 :37 No .5mg 0.5 mg, Inhalation , TID, First dose (after last modificati on) on Tue01/19/23 at 0800, Until Discontinu ed, Routine [facility] levalbutero l (XOPENEX) nebulizer solution 1.25 mg 01-19 13:00: 00 01-19 19:13 :37 No 1.25mg 1.25 mg, Inhalation , TID, First dose on Tue01/19/23 at 0800, Until Discontinu ed, Routine [facility] sodium polystyrene sulfonate (KAYEXALATE ) 15 gram/60 mL suspension 15 g 01-19 13:00: 00 01-19 13:22 :00 No 15g 15 g, Oral, ONCE, 1 dose, On Tue01/19/23 at 0800, Routine [facility] ipratropium (ATROVENT) 0.02 % nebulizer solution 0.5 mg 01-19 09:00: 00 01-19 12:09 :19 No .5mg 0.5 mg, Inhalation , Q4H, First dose on Tue01/19/23 at 0400, Until Discontinu ed, Routine [facility] levoFLOXaci n (LEVAQUIN) tablet 500 mg 01-19 08:15: 00 01-24 08:14 :00 No 500mg 500 mg, Oral, Q24H ABX, 5 doses, First dose on Tue01/19/23 at 0315, Last dose on Tue01/23/23 at 0315, MICHAEL
Re ason for Anti-Infec tive: Empiric Therapy for Suspected Infection< br>Empiric Therapy Site: Respirator y
Durat ion of therapy: 5 days [facility] guaiFENesin 100 mg/5 mL solution 200 mg 01-19 08:04: 52 Yes 200mg 200 mg, Oral, Q6HPRN, Starting on Tue01/19/23 at 0304, Until Discontinu ed, Routine, Cough [facility] ondansetron (ZOFRAN (PF)) injection 4 mg 01-19 08:03: 53 Yes 4mg 4 mg, Slow IV Push, Q6HPRN, Starting on Tue01/19/23 at 0303, Until Discontinu ed, Routine, Nausea and Vomiting (N/V) [facility] morpHINE (2 mg/mL) injection 2 mg 01-19 08:03: 43 01-20 08:02 :43 No 2mg 2 mg, Slow IV Push, Q4HPRN, Starting on Tue01/19/23 at 030, Until Elizabeth 01/20/23 at 030, Routine, Pain (scale 7-10) [facility] HYDROcodone -acetaminop hen (NORCO 5) 5-325 mg tablet 1 tablet 01-19 08:03: 39 01-21 08:02 :39 No 1{tbl} 1 tablet, Oral, Q6HPRN, Starting on Tue01/19/23 at 0303, Until Tue01/21/23 at 0302, Routine, Pain (scale 4-6) [facility] acetaminoph en (TYLENOL) tablet 650 mg 01-19 08:03: 35 Yes 650mg 650 mg, Oral, Q6HPRN, Starting on Tue01/19/23 at 0303, Until Discontinu ed, Routine, Pain (scale 1-3) [facility] levalbutero l (XOPENEX) nebulizer solution 1.25 mg 01-19 07:30: 00 01-19 07:08 :00 No 1.25mg 1.25 mg, Inhalation , ONCE, 1 dose, On Tue01/19/23 at 0230, Routine [facility] dexamethaso ne sod phos PF injection 10 mg 01-19 06:58: 00 01-19 07:06 :00 No 10mg 10 mg, Oral, ONCE, 1 dose, On Tue01/19/23 at 0200, 1 mL [facility] ipratropium (ATROVENT) 0.02 % nebulizer solution 0.5 mg 01-19 06:45: 00 01-19 07:09 :00 No .5mg 0.5 mg, Inhalation , ONCE, 1 dose, On Tue01/19/23 at 0145, MICHAEL [facility] guaiFENesin 100 mg/5 mL solution 01-19 00:00: 00 Yes [id number] 200mg Take 10 mL by mouth every 6 (six) hours as needed for Cough. [facility] ipratropium 0.02 % nebulizer solution 01-19 00:00: 00 02-17 00:00 :00 No [id number] .5mg Inhale 2.5 mL every 6 (six) hours as needed for Wheezing, Shortness of Breath, Bronchospa sm or Chest tightness. [facility] levoFLOXaci n 500 mg tablet 01-19 00:00: 00 01-24 04:59 :00 No [id number] 500mg Take 1 tablet by mouth in the morning for 4 days. [facility] levalbutero l (XOPENEX) nebulizer solution 1.25 mg 01-17 13:00: 00 01-17 11:56 :39 No 1.25mg 1.25 mg, Inhalation , TID, First dose on Tue01/17/23 at 0800, Until Discontinu ed, Routine [facility] methylpredn isolone sod succ (SOLU-MEDRO L) injection 125 mg 01-17 12:00: 00 01-17 11:11 :00 No 125mg 125 mg, Intravenou s, ONCE, 1 dose, On Tue01/17/23 at 0700, 2 mL [facility] ipratropium (ATROVENT) 0.02 % nebulizer solution 0.5 mg 01-17 11:45: 00 01-17 11:42 :00 No .5mg 0.5 mg, Inhalation , ONCE, 1 dose, On Tue01/17/23 at 0645, [facility] predniSONE 50 mg tablet 01-17 00:00: 00 Yes [id number] 50mg Take 1 tablet by mouth in the morning. [facility] ipratropium 0.02 % nebulizer solution 01-17 00:00: 00 Yes [id number] .5mg Inhale 2.5 mL every 6 (six) hours as needed for Wheezing, Shortness of Breath, Bronchospa sm or Chest tightness. [facility] albuterol 2.5 mg /3 mL (0.083 %) nebulizer solution 01-17 00:00: 00 03-03 00:00 :00 No [id number] 2.5mg Inhale 3 mL every 4 (four) hours. May also nebulize one extra every 6 hours. [facility] benzonatate 200 mg capsule 01-17 00:00: 00 02-17 00:00 :00 No [id number] 200mg Take 1 capsule by mouth 3 (three) times daily as needed for Cough. [facility] albuterol 90 mcg/actuati on inhaler 01-17 00:00: 00 02-04 00:00 :00 No [id number] 2{puff} Inhale 2 Puffs every 4 (four) hours as needed for Wheezing or Shortness of Breath. [facility] potassium chloride (KCL-20 ORAL) 01-07 14:37: 58 Yes 1{tbl} Take 1 tablet by mouth in the morning and 1 tablet in the evening. [facility] busPIRone 10 mg tablet 01-07 14:36: 57 Yes 10mg Take 1 tablet by mouth in the morning and 1 tablet in the evening. [facility] rivaroxaban 15 mg tablet 01-07 14:36: 57 Yes 15mg Take 1 tablet by mouth in the morning. [facility] ASPIRIN ORAL 01-07 14:36: 57 Yes 81mg Take 81 mg by mouth in the morning. tablet [facility] benazepriL 10 mg tablet 01-07 14:36: 57 Yes 10mg Take 1 tablet by mouth in the morning. [facility] donepeziL 5 mg tablet 01-07 00:00: 00 03-01 00:00 :00 No 5mg Take 1 tablet by mouth in the morning. [facility] memantine 5 mg tablet 01-07 00:00: 00 03-01 00:00 :00 No 5mg Take 1 tablet by mouth in the morning. [facility] tamsulosin 0.4 mg 24 hr capsule 12-13 00:00: 00 01-13 04:59 :00 No [id number] .4mg Take 1 capsule by mouth in the morning for 30 days. [facility] donepeziL (ARICEPT) tablet 5 mg 12-12 17:30: 00 Yes 5mg 5 mg, Oral, DAILY, First dose on 12/12/22 at 1230, Until Discontinu ed, Routine [facility] memantine (NAMENDA) tablet 5 mg 12-12 17:30: 00 Yes 5mg 5 mg, Oral, DAILY, First dose on 12/12/22 at 1230, Until Discontinu ed, Routine
food court team member approving Restricted medication : TRAVIS ZENG [facility] busPIRone 10 mg tablet 12-12 14:37: 13 Yes 10mg Take 1 tablet by mouth in the morning and 1 tablet in the evening. [facility] rivaroxaban (XARELTO) 15 mg tablet 12-12 14:37: 13 Yes 15mg Take 1 tablet by mouth in the morning. [facility] aspirin 81 mg chewable tablet 12-12 14:37: 13 Yes 81mg Take 81 mg by mouth in the morning. tablet [facility] tamsulosin (FLOMAX) capsule 0.4 mg 12-12 14:00: 00 Yes .4mg 0.4 mg, Oral, DAILY, First dose on 12/12/22 at 0900, Until Discontinu ed, Routine [facility] aspirin EC tablet 81 mg 12-12 14:00: 00 Yes 81mg 81 mg, Oral, DAILY, First dose on 12/12/22 at 0900, Until Discontinu ed, [facility] methylpredn isolone sod succ (SOLU-MEDRO L) injection 40 mg 12-12 14:00: 00 Yes 40mg 40 mg, Intravenou s, DAILY, First dose (after last modificati on) on 12/12/22 at 0900, Until Discontinu ed, [facility]ine [facility] carvediloL 25 mg tablet 12-12 11:47: 13 12-12 00:00 :00 No 25mg Take 1 tablet by mouth in the morning and 1 tablet in the evening. Take with meals. [facility] busPIRone 30 mg tablet 12-12 11:47: 13 12-12 00:00 :00 No 30mg Take 1 tablet by mouth in the morning and 1 tablet in the evening. [facility] KCL 20 mEq tablet 12-12 11:47: 13 12-12 00:00 :00 No Take by mouth 2 (two) times daily. [facility] benazepriL 10 mg tablet 12-12 11:47: 13 12-12 00:00 :00 No 10mg Take 1 tablet by mouth in the morning. [facility] hydroCHLORO thiazide 25 mg tablet 12-12 11:47: 13 12-12 00:00 :00 No 25mg Take 1 tablet by mouth in the morning. [facility] melatonin (MELATIN) tablet 6 mg 12-12 02:00: 00 Yes 6mg 6 mg, Oral, QHS, First dose on 12/11/22 at 2100, Until Discontinu ed, Routine [facility] atorvastati n (LIPITOR) tablet 40 mg 12-12 02:00: 00 Yes 40mg 40 mg, Oral, QHS, First dose on 12/11/22 at 2100, Until Discontinu ed, [facility]ine [facility] carvediloL 3.125 mg tablet 12-12 00:00: 00 01-12 04:59 :00 No [id number] 3.125mg Take 1 tablet by mouth in the morning and 1 tablet in the evening. Take with meals. Do all this for 30 days. [facility] atorvastati n 40 mg tablet 12-12 00:00: 00 01-12 04:59 :00 No [id number] 40mg Take 1 tablet by mouth at bedtime for 30 days. [facility] donepeziL 5 mg tablet 12-12 00:00: 00 01-07 00:00 :00 No [id number] 5mg Take 1 tablet by mouth in the morning for 30 days. [facility] memantine 5 mg tablet 12-12 00:00: 00 01-07 00:00 :00 No [id number] 5mg Take 1 tablet by mouth in the morning for 30 days. [facility] levalbutero l (XOPENEX) nebulizer solution 1.25 mg 12-11 17:00: 00 Yes 1.25mg 1.25 mg, Inhalation , QID, First dose (after last modificati on) on [facility] 12/11/22 at 1200, Until Discontinu ed, Routine [facility] rivaroxaban (XARELTO) tablet 15 mg 12-11 14:00: 00 Yes 15mg 15 mg, Oral, DAILY, First dose on [facility] 12/11/22 at 0900, Until Discontinu ed, Routine [facility] nicotine (NICODERM) 21 mg/24 hr patch 1 Patch 12-11 13:45: 00 Yes 1{patch } 1 Patch, Topical, Administer over 24 Hours, Q24H, First dose on [facility] 12/11/22 at 0845, Until Discontinu ed, Routine [facility] ipratropium (ATROVENT) 0.02 % nebulizer solution 0.5 mg 12-11 13:00: 00 Yes .5mg 0.5 mg, Inhalation , QID, First dose on [facility] 12/11/22 at 0800, Until Discontinu ed [facility] carvediloL (COREG) tablet 3.125 mg 12-11 13:00: 00 Yes 3.125mg 3.125 mg, Oral, BID MEALS, First dose on Tue12/11/22 at 0800, Until Discontinu ed, Routine [facility] busPIRone (BUSPAR) tablet 10 mg 12-11 13:00: 00 Yes 10mg 10 mg, Oral, BID, First dose on Tue12/11/22 at 0800, Until Discontinu ed, Routine [facility] methylpredn isolone sod succ (SOLU-MEDRO L) injection 125 mg 12-11 05:00: 00 12-11 12:35 :32 No 125mg 125 mg, Intravenou s, Q6H, First dose on Tue12/11/22 at 0000, Until Discontinu ed, Routine [facility] NaCl 0.9% (NS) IV infusion 1,000 mL 12-11 03:30: 00 12-11 14:48 :38 No 1000mL at 100 mL/hr, IV Infusion, CONTINUOUS , Starting on Tue12/10/22 at 2230, Until Tue12/11/22 at 0948, Routine [facility] albuterol (VENTOLIN) inhaler 2 Puff 12-11 03:17: 09 Yes 2{puff} 2 Puff, Inhalation , Q4HPRN, Starting on Tue12/10/22 at 2217, Until Discontinu ed, Routine, Wheezing, Shortness of Breath [facility] ondansetron (ZOFRAN (PF)) injection 4 mg 12-11 03:05: 14 Yes 4mg 4 mg, Slow IV Push, Q6HPRN, Starting on Tue12/10/22 at 2205, Until Discontinu ed, Routine, Nausea and Vomiting (N/V) [facility] HYDROcodone -acetaminop hen (NORCO) 10-325 mg tablet 1 tablet 12-11 03:05: 00 Yes 1{tbl} 1 tablet, Oral, Q6HPRN, Starting on Tue12/10/22 at 2205, Until Discontinu ed, Routine, Pain (scale 7-10) [facility] HYDROcodone -acetaminop hen (NORCO 5) 5-325 mg tablet 1 tablet 12-11 03:04: 56 12-13 03:03 :56 No 1{tbl} 1 tablet, Oral, Q6HPRN, Starting on Tue12/10/22 at 2204, Until Tue12/12/22 at 2203, Routine, Pain (scale 4-6) [facility] acetaminoph en (TYLENOL) tablet 650 mg 12-11 03:04: 50 Yes 650mg 650 mg, Oral, Q6HPRN, Starting on Tue12/10/22 at 2204, Until Discontinu ed, Routine, Pain (scale 1-3) [facility] levalbutero l (XOPENEX) nebulizer solution 1.25 mg 12-11 01:00: 00 12-11 15:57 :00 No 1.25mg 1.25 mg, Inhalation , TID, First dose on Tue12/10/22 at 2000, Until Discontinu ed, Routine [facility] NaCl 0.9% (NS) bolus infusion 1,000 mL 12-11 00:15: 00 12-11 03:18 :00 No 1000mL at 999 mL/hr, 1,000 mL, IV Infusion, ONCE, 1 dose, On Tue12/10/22 at 1915, STAT [facility] ipratropium (ATROVENT) 0.02 % nebulizer solution 0.5 mg 12-10 23:48: 58 Yes .5mg 0.5 mg, Inhalation , Q4HPRN, Starting on Tue12/10/22 at 1848, Until Discontinu ed, Routine, Wheezing, Shortness of Breath [facility] NaCl 0.9% (NS) bolus infusion 500 mL 12-04 16:15: 00 12-04 15:41 :58 No 500mL at 999 mL/hr, 500 mL, IV Piggyback, ONCE, 1 dose, On Tue12/04/22 at 1115, STAT [facility] carvediloL 3.125 mg tablet 12-04 12:44: 03 Yes 3.125mg Take 1 tablet by mouth in the morning and 1 tablet in the evening. Take with meals. [facility] busPIRone 10 mg tablet 12-04 12:44: 03 Yes 10mg Take 1 tablet by mouth in the morning and 1 tablet in the evening. [facility] busPIRone 30 mg tablet 12-04 12:44: 03 Yes 30mg Take 1 tablet by mouth in the morning and 1 tablet in the evening. [facility] KCL 20 mEq tablet 12-04 12:44: 03 Yes Take by mouth 2 (two) times daily. [facility] benazepriL 10 mg tablet 12-04 12:44: 03 Yes 10mg Take 1 tablet by mouth in the morning. [facility] rivaroxaban (XARELTO) 15 mg tablet 12-04 12:44: 03 Yes 15mg Take 1 tablet by mouth in the morning. [facility] albuterol 90 mcg/actuati on inhaler 12-04 00:00: 00 01-19 00:00 :00 No [id number] 2{puff} Inhale 2 Puffs every 6 (six) hours as needed for Wheezing or Shortness of Breath. [facility] tiotropium 18 mcg inhalation 12-04 00:00: 00 01-04 04:59 :00 No [id number] 18ug Inhale 1 capsule in the morning for 30 days. [facility] doxycycline hyclate 100 mg capsule 12-04 00:00: 00 12-10 04:59 :00 No [id number] 100mg Take 1 capsule by mouth every 12 (twelve) hours for 5 days. [facility] predniSONE 20 mg tablet 12-04 00:00: 00 12-10 04:59 :00 No [id number] 40mg Take 2 tablets by mouth in the morning for 5 days. [facility] rivaroxaban (XARELTO) tablet 15 mg 12-03 17:15: 00 Yes 15mg 15 mg, Oral, DAILY, First dose (after last modificati on) on Tue12/03/22 at 1215, Until Discontinu ed, [facility]ine [facility] enoxaparin (LOVENOX) injection 40 mg 12-02 22:00: 00 12-03 16:06 :59 No 40mg 40 mg, Subcutaneo us, DAILY, First dose on Tue12/02/22 at 1700, Until Discontinu ed, Routine [facility] methylPREDN ISolone sod succ (SOLU-MEDRO L (PF)) injection 40 mg 12-02 19:00: 00 Yes 40mg 40 mg, Intravenou s, Q8H, First dose on Tue12/02/22 at 1400, Until Discontinu ed, 1 mL [facility] codeine-gua ifenesin (ROBITUSSIN AC) 10-100 mg/5 mL oral solution 5 mL 12-02 16:25: 07 Yes 5mL 5 mL, Oral, Q6HPRN, Starting on Tue12/02/22 at 1125, Until Discontinu ed, Routine, Cough [facility] levalbutero l (XOPENEX) nebulizer solution 1.25 mg 12-02 13:00: 00 Yes 1.25mg 1.25 mg, Inhalation , Q4H, First dose on Tue12/02/22 at 0800, Until Discontinu ed, Routine [facility] ipratropium (ATROVENT) 0.02 % nebulizer solution 0.5 mg 12-02 13:00: 00 Yes .5mg 0.5 mg, Inhalation , Q4H, First dose on Tue12/02/22 at 0800, Until Discontinu ed, Routine [facility] doxycycline hyclate (Vibramycin ) capsule 100 mg 12-02 11:45: 00 12-07 11:44 :00 No 100mg 100 mg, Oral, Q12H ABX, 10 doses, First dose on 12/02/22 at 0645, Last dose on 12/06/22 at 1845, MICHAEL
Re ason for Anti-Infec tive: Empiric Therapy for Suspected Infection< br>Empiric Therapy Site: Respirator y
Durat ion of therapy: 5 days [facility] NaCl 0.9% (NS) IV infusion 1,000 mL 12-02 11:45: 00 12-02 14:24 :54 No 1000mL at 75 mL/hr, IV Infusion, CONTINUOUS , Starting on Tue12/02/22 at 0645, Until Elizabeth 12/02/22 at 0924, Routine [facility] famotidine (PEPCID AC) tablet 20 mg 12-02 11:30: 03 Yes 20mg 20 mg, Oral, BIDPRN, Starting on Tue12/02/22 at 0630, Until Discontinu ed, Routine, Indigestio n, Heartburn [facility] ondansetron (ZOFRAN (PF)) injection 4 mg 12-02 11:30: 03 Yes 4mg 4 mg, Slow IV Push, Q6HPRN, Starting on Tue12/02/22 at 0630, Until Discontinu ed, Routine, Nausea and Vomiting (N/V) [facility] bisacodyL (DULCOLAX) tablet 10 mg 12-02 11:30: 03 Yes 10mg 10 mg, Oral, QDAILYPRN, Starting on Tue12/02/22 at 0630, Until Discontinu ed, Routine, Constipati on [facility] acetaminoph en (TYLENOL) tablet 650 mg 12-02 11:30: 03 Yes 650mg 650 mg, Oral, Q6HPRN, Starting on Tue12/02/22 at 0630, Until Discontinu ed, Routine, Pain (scale 1-3) [facility] methylpredn isolone sod succ (SOLU-MEDRO L) injection 125 mg 12-02 06:15: 00 12-02 05:27 :00 No 125mg 125 mg, Intravenou s, ONCE, 1 dose, On Tue12/02/22 at 0115, 2 mL [facility] ipratropium -albuteroL (DUONEB) 0.5 mg-3 mg(2.5 mg base)/3 mL nebulizer solution 6 mL 12-02 06:15: 00 12-02 05:33 :00 No 6mL 6 mL, Inhalation , ONCE, 1 dose, On Tue12/02/22 at 0115, [facility] levalbutero l (XOPENEX) nebulizer solution 0.63 mg 12-01 13:15: 00 12-01 12:38 :00 No .63mg 0.63 mg, Inhalation , ONCE, 1 dose, On Tue12/01/22 at 0815, [facility] ipratropium (ATROVENT) 0.02 % nebulizer solution 0.5 mg 12-01 12:30: 00 12-01 12:38 :00 No .5mg 0.5 mg, Inhalation , ONCE, 1 dose, On Tue12/01/22 at 0730, [facility] levalbutero l (XOPENEX) nebulizer solution 1.25 mg 12-01 11:15: 00 12-01 10:38 :00 No 1.25mg 1.25 mg, Inhalation , ONCE, 1 dose, On Tue12/01/22 at 0615, [facility] ipratropium (ATROVENT) 0.02 % nebulizer solution 0.5 mg 12-01 10:30: 00 12-01 10:38 :00 No .5mg 0.5 mg, Inhalation , ONCE, 1 dose, On Tue12/01/22 at 0530, [facility] methylPREDN ISolone sod succ (SOLU-MEDRO L (PF)) injection 40 mg 12-01 10:30: 00 12-01 10:35 :00 No 40mg 40 mg, Intravenou s, ONCE, 1 dose, On Tue12/01/22 at 0530, MICHAEL [facility] Nebulizer & Compressor For Neb Kami 12-01 00:00: 00 Yes [id number] Use as directed [facility] Compressor For Neb Kami 12-01 00:00: 00 Yes [id number] Use as directed [facility] predniSONE 50 mg tablet 12-01 00:00: 00 Yes [id number] 50mg Take 1 tablet by mouth in the morning. [facility] albuterol 90 mcg/actuati on inhaler 12-01 00:00: 00 12-12 00:00 :00 No [id number] 2{puff} Inhale 2 Puffs every 4 (four) hours as needed for Wheezing or Shortness of Breath. [facility] omeprazole 40 mg capsule 11-28 14:11: 11-28 00:00 :00 No 40mg Take 40 mg by mouth daily. [facility] carvediloL 25 mg tablet 11-28 14:: 11-28 00:00 :00 No 25mg Take 25 mg by mouth 2 (two) times daily with meals. [facility] busPIRone 30 mg tablet 11-28 14:11: 11-28 00:00 :00 No 30mg Take 30 mg by mouth 2 (two) times daily. [facility] benazepriL 10 mg tablet 11-28 14:: 11-28 00:00 :00 No 10mg Take 10 mg by mouth daily. [facility] hydroCHLORO thiazide 25 mg tablet 11-28 14:11: 11-28 00:00 :00 No 25mg Take 25 mg by mouth daily. [facility] levalbutero l (XOPENEX) nebulizer solution 0.63 mg 11-28 13:00: 00 Yes .63mg 0.63 mg, Inhalation , TID, First dose (after last modificati on) on 11/28/22 at 0800, Until Discontinu ed, Routine [facility] ipratropium (ATROVENT) 0.02 % nebulizer solution 0.5 mg 11-27 20:00: 00 Yes .5mg 0.5 mg, Inhalation , TID, First dose (after last modificati on) on 11/27/22 at 1400, Until Discontinu ed, Routine [facility] nicotine (NICODERM) 21 mg/24 hr patch 1 Patch 11-27 17:30: 00 Yes 1{patch } 1 Patch, Topical, Administer over 24 Hours, Q24H, First dose on 11/27/22 at 1130, Until Discontinu ed, Routine [facility] busPIRone (BUSPAR) tablet 10 mg 11-27 16:15: 00 Yes 10mg 10 mg, Oral, TID, First dose on 11/27/22 at 1015, Until Discontinu ed, Routine [facility] aspirin chewable tablet 81 mg 11-27 16:15: 00 Yes 81mg 81 mg, Oral, DAILY, First dose on 11/27/22 at 1015, Until Discontinu ed, Routine [facility] foLIC acid (FOLATE) tablet 1 mg 11-27 15:00: 00 Yes 1mg 1 mg, Oral, DAILY, First dose on 11/27/22 at 0900, Until Discontinu ed, Routine [facility] rivaroxaban (XARELTO) tablet 20 mg 11-27 15:00: 00 Yes 20mg 20 mg, Oral, DAILY, First dose on 11/27/22 at 0900, Until Discontinu ed, Routine [facility] omeprazole (PRILOSEC) capsule 40 mg 11-27 15:00: 00 Yes 40mg 40 mg, Oral, DAILY, First dose on 11/27/22 at 0900, Until Discontinu ed [facility] predniSONE (DELTASONE) tablet 40 mg 11-27 15:00: 00 12-02 13:59 :00 No 40mg 40 mg, Oral, DAILY, 5 doses, First dose on 11/27/22 at 0900, Last dose on Tue12/01/22 at 0900, Routine [facility] carvediloL (COREG) tablet 25 mg 11-27 14:00: 00 Yes 25mg 25 mg, Oral, BID MEALS, First dose on Tue11/27/22 at 0800, Until Discontinu ed, Routine [facility] levalbutero l (XOPENEX) nebulizer solution 0.31 mg 11-27 14:00: 00 11-28 12:33 :58 No .31mg 0.31 mg, Inhalation , TID, First dose on Tue11/27/22 at 0800, Until Discontinu ed, Routine [facility] ipratropium (ATROVENT) 0.02 % nebulizer solution 0.5 mg 11-27 14:00: 00 11-27 18:48 :56 No .5mg 0.5 mg, Inhalation , QID, First dose on Tue11/27/22 at 0800, Until Discontinu ed, Routine [facility] thiamine (VITAMIN B1) tablet 100 mg 11-27 08:30: 00 Yes 100mg 100 mg, Oral, DAILY, First dose (after last modificati on) on Tue11/27/22 at 0230, Until Discontinu ed, Routine [facility] LORazepam (ATIVAN) injection 1 mg 11-27 08:16: 19 Yes 1mg 1 mg, Slow IV Push, Q4HPRN, Starting on Tue11/27/22 at 0216, Until Discontinu ed, Routine, Agitation, Seizures, withdrawl [facility] levalbutero l (XOPENEX) nebulizer solution 1.25 mg 11-19 14:00: 00 Yes 1.25mg 1.25 mg, Inhalation , TID, First dose on Tue11/19/22 at 0800, Until Discontinu ed, Routine [facility] ipratropium (ATROVENT) 0.02 % nebulizer solution 0.5 mg 11-19 09:30: 00 11-19 08:47 :00 No .5mg 0.5 mg, Inhalation , ONCE, 1 dose, On Tue11/19/22 at 0330, Routine [facility] levalbutero l (XOPENEX) nebulizer solution 1.25 mg 11-19 02:00: 00 11-19 01:21 :00 No 1.25mg 1.25 mg, Inhalation , ONCE, 1 dose, On Tue11/18/22 at 2000, Routine [facility] thiamine 100 mg tablet 11-12 00:00: 00 11-28 00:00 :00 No [id number] 100mg Take 1 tablet by mouth in the morning for 30 days. [facility] thiamine (VITAMIN B1) tablet 100 mg 11-11 15:00: 00 Yes 100mg 100 mg, Oral, DAILY, First dose on Tue11/11/22 at 0900, Until Discontinu ed, Routine [facility] omeprazole 40 mg capsule 11-11 13:41: 29 Yes 40mg Take 40 mg by mouth daily. [facility] carvediloL 25 mg tablet 11-11 13:41: 29 Yes 25mg Take 25 mg by mouth 2 (two) times daily with meals. [facility] busPIRone 30 mg tablet 11-11 13:41: 29 Yes 30mg Take 30 mg by mouth 2 (two) times daily. [facility] benazepriL 10 mg tablet 11-11 13:41: 29 Yes 10mg Take 10 mg by mouth daily. [facility] hydroCHLORO thiazide 25 mg tablet 11-11 13:41: 29 Yes 25mg Take 25 mg by mouth daily. [facility] foLIC acid (FOLATE) tablet 1 mg 11-11 00:15: 00 11-11 00:26 :00 No 1mg 1 mg, Oral, ONCE, 1 dose, On Tue11/10/22 at 1815, Routine [facility] benzocaine- menthoL lozenge 11-11 00:00: 00 11-28 00:00 :00 No [id number] 1{lozen ge} Take 1 Lozenge by mouth every 4 (four) hours as needed for Sore throat. [facility] budesonide- formoteroL 80-4.5 mcg/actuati on inhaler 11-11 00:00: 00 11-28 00:00 :00 No [id number] 2{puff} Inhale 2 Puffs in the morning and 2 Puffs in the evening. [facility] sodium chloride 1 gram tablet 11-11 00:00: 00 11-22 05:59 :00 No [id number] 1g Take 1 tablet by mouth in the morning and 1 tablet at noon and 1 tablet in the evening. Take with meals. Do all this for 10 days. [facility] levoFLOXaci n 750 mg tablet 11-11 00:00: 00 11-17 05:59 :00 No [id number] 750mg Take 1 tablet by mouth every 24 (twenty-fo ur) hours for 5 days. [facility] predniSONE 20 mg tablet 11-11 00:00: 00 11-15 05:59 :00 No [id number] 40mg Take 2 tablets by mouth in the morning for 3 days. [facility] sodium chloride tablet 1 g 11-10 23:15: 00 Yes 1g 1 g, Oral, TID MEALS, First dose on Tue11/10/22 at 1715, Until Discontinu ed, Routine [facility] benzocaine- menthoL (CEPACOL SORE THROAT (JACINTO-MEN)) lozenge 1 Lozenge 11-10 20:49: 25 Yes 1{lozen ge} 1 Lozenge, Oral, Q4HPRN, Starting on Tue11/10/22 at 1449, Until Discontinu ed, Routine, Sore throat [facility] budesonide- formoteroL (SYMBICORT) 80-4.5 mcg/actuati on inhaler 2 Puff 11-10 17:30: 00 Yes 2{puff} 2 Puff, Inhalation , BID, First dose on Tue11/10/22 at 1130, Until Discontinu ed, Routine [facility] omeprazole (PRILOSEC) capsule 40 mg 11-10 15:00: 00 Yes 40mg 40 mg, Oral, DAILY, First dose on Tue11/10/22 at 0900, Until Discontinu ed [facility] rivaroxaban (XARELTO) tablet 20 mg 11-10 15:00: 00 Yes 20mg 20 mg, Oral, DAILY, First dose on Tue11/10/22 at 0900, Until Discontinu ed, Routine [facility] aspirin chewable tablet 81 mg 11-10 15:00: 00 Yes 81mg 81 mg, Oral, DAILY, First dose on Tue11/10/22 at 0900, Until Discontinu ed, Routine [facility] methylPREDN ISolone sod succ (SOLU-MEDRO L (PF)) injection 40 mg 11-10 15:00: 00 11-14 14:59 :00 No 40mg 40 mg, Intravenou s, DAILY, 4 doses, First dose on Tue11/10/22 at 0900, Last dose on Tue11/13/22 at 0900, 1 mL [facility] NaCl 0.9% (NS) IV infusion 1,000 mL 11-10 09:00: 00 Yes 1000mL at 100 mL/hr, IV Infusion, CONTINUOUS , Starting on Tue11/10/22 at 0300, Until Discontinu ed, Routine [facility] levoFLOXaci n in D5W (LEVAQUIN) 750 [...]
D uration of therapy: 5 days [facility] busPIRone (BUSPAR) tablet 30 mg 11-10 02:00: 00 Yes 30mg 30 mg, Oral, BID, First dose on Tue11/09/22 at 2000, Until Discontinu ed, Routine [facility] carvediloL (COREG) tablet 25 mg 11-09 23:00: 00 Yes 25mg 25 mg, Oral, BID MEALS, First dose on Tue11/09/22 at 1700, Until Discontinu ed, Routine [facility] ipratropium (ATROVENT) 0.02 % nebulizer solution 0.5 mg 11-09 22:00: 00 Yes .5mg 0.5 mg, Inhalation , Q4H, First dose on Tue11/09/22 at 1600, Until Discontinu ed, Routine [facility] albuterol (PROVENTIL) 2.5 mg /3 mL (0.083 %) nebulizer solution 2.5 mg 11-09 22:00: 00 Yes 2.5mg 2.5 mg, Inhalation , Q4H, First dose on Tue11/09/22 at 1600, Until Discontinu ed, Routine [facility] NaCl 0.9% (NS) bolus infusion 500 mL 11-09 20:15: 00 11-09 21:30 :21 No 500mL at 999 mL/hr, 500 mL, IV Infusion, ONCE, 1 dose, On Tue11/09/22 at 1415, STAT [facility] ondansetron (ZOFRAN (PF)) injection 4 mg 11-09 20:04: 17 Yes 4mg 4 mg, Slow IV Push, Q6HPRN, Starting on Tue11/09/22 at 1404, Until Discontinu ed, Routine, Nausea and Vomiting (N/V) [facility] acetaminoph en (TYLENOL) tablet 650 mg 11-09 20:04: 07 Yes 650mg 650 mg, Oral, Q6HPRN, Starting on Tue11/09/22 at 1404, Until Discontinu ed, Routine, Pain (scale 1-3), Temp > 38 C [facility] albuterol (PROVENTIL) 2.5 mg /3 mL (0.083 %) nebulizer solution 5 mg 11-09 14:00: 00 11-09 14:05 :00 No 5mg 5 mg, Inhalation , ONCE, 1 dose, On Tue11/09/22 at 0800, STAT [facility] albuterol (PROVENTIL) 2.5 mg /3 mL (0.083 %) nebulizer solution 10 mg 11-09 11:00: 00 11-09 11:04 :00 No 10mg 10 mg, Inhalation , ONCE, 1 dose, On Tue11/09/22 at 0500, STAT [facility] ipratropium (ATROVENT) 0.02 % nebulizer solution 0.5 mg 11-09 09:00: 00 11-09 08:59 :00 No .5mg 0.5 mg, Inhalation , ONCE, 1 dose, On Tue11/09/22 at 0300, MICHAEL [facility] albuterol (PROVENTIL) 2.5 mg /3 mL (0.083 %) nebulizer solution 2.5 mg 11-09 09:00: 00 11-09 08:59 :00 No 2.5mg 2.5 mg, Inhalation , ONCE, 1 dose, On Tue11/09/22 at 0300, STAT [facility] magnesium sulfate in water 2 gram/50 mL (4 %) infusion 2 g 11-09 08:30: 00 11-09 08:22 :00 No 2g 2 g, IV Piggyback, Administer over 60 Minutes, ONCE, 1 dose, On Tue11/09/22 at 0230, Routine [facility] methylPREDN ISolone sodium succinate (SOLU-MEDRO L) injection 125 mg 11-09 07:45: 00 11-09 07:41 :00 No 125mg 125 mg, Intravenou s, ONCE, 1 dose, On Tue11/09/22 at 0145, MICHAEL [facility] ipratropium (ATROVENT) 0.02 % nebulizer solution 0.5 mg 11-09 07:45: 00 11-09 07:40 :00 No .5mg 0.5 mg, Inhalation , ONCE, 1 dose, On Tue11/09/22 at 0145, MICHAEL [facility] albuterol (PROVENTIL) 2.5 mg /3 mL (0.083 %) nebulizer solution 2.5 mg 11-09 07:45: 00 11-09 07:40 :00 No 2.5mg 2.5 mg, Inhalation , ONCE, 1 dose, On Tue11/09/22 at 0145, STAT [facility] cephALEXin (KEFLEX) 500 mg capsule 05-22 00:00: 00 11-11 00:00 :00 No [id number] 500mg Take 1 capsule by mouth 4 (four) times daily. [facility] cefTRIAXone (ROCEPHIN) 1,000 mg in NaCl 0.9% (NS) 50 mL MINI-BAG 12-12 19:00: 00 12-12 18:23 :00 No 1000mg 1,000 mg, IV Piggyback, ONCE, 1 dose, Tue12/12/20 at 1400, 50 mL
Reas on for Anti-Infec tive: Empiric Therapy for Suspected Infection< br>Empiric Therapy Site: Urine
D uration of therapy: 72 hours [facility] carvediloL 25 mg tablet 12-12 18:38: 04 Yes 25mg Take 25 mg by mouth 2 (two) times daily with meals. [facility] busPIRone 30 mg tablet 12-12 18:38: 04 Yes 30mg Take 30 mg by mouth 2 (two) times daily. [facility] benazepriL 10 mg tablet 12-12 18:38: 04 Yes 10mg Take 10 mg by mouth daily. [facility] hydroCHLORO thiazide 25 mg tablet 12-12 18:38: 04 Yes 25mg Take 25 mg by mouth daily. [facility] iohexol (OMNIPAQUE 350 BULK-150 mL) injection 120 mL 12-12 17:30: 00 12-12 17:21 :00 No [id number] 120mL 120 mL, Intravenou s, ONCE, 1 dose, Tue12/12/20 at 1230, Routine [facility] aspirin 81 mg EC tablet 12-12 16:57: 40 12-12 00:00 :00 No 81mg Take 81 mg by mouth daily. [facility] varenicline (CHANTIX) 1 mg tablet 12-12 16:57: 18 12-12 00:00 :00 No 1mg Take 1 mg by mouth 2 (two) times daily. [facility] predniSONE 20 mg tablet 12-12 16:57: 12 12-12 00:00 :00 No 20mg Take 20 mg by mouth daily. [facility] fluticasone -umeclidin- vilanter (TRELEGY ELLIPTA) 100-62.5-25 mcg DsDv 12-12 16:56: 46 12-12 00:00 :00 No 1{puff} Inhale 1 Puff daily. [facility] cefpodoxime 100 mg tablet 12-12 00:00: 00 11-11 00:00 :00 No [id number] 100mg Take 1 tablet by mouth 2 (two) times daily. [facility] XARELTO 15 mg tablet 10-16 00:00: 00 11-28 00:00 :00 No [facility] omeprazole 40 mg capsule 2018-09 00:11: 42 Yes 40mg Take 40 mg by mouth daily. [facility] varenicline (CHANTIX) 1 mg tablet 2018-09 00:11: 42 Yes 1mg Take 1 mg by mouth 2 (two) times daily. [facility] predniSONE 20 mg tablet 2018-09 00:11: 42 Yes 20mg Take 20 mg by mouth daily. [facility] fluticasone -umeclidin- vilanter (TRELEGY ELLIPTA) 100-62.5-25 mcg DsDv 2018-09 00:11: 42 Yes 1{puff} Inhale 1 Puff daily. [facility] aspirin 81 mg EC tablet 2018-09 00:11: 42 Yes 81mg Take 81 mg by mouth daily. [facility] KCL 20 mEq tablet 2018-09 00:00: 00 11-28 00:00 :00 No [id number] 40meq Take 2 tablets by mouth daily. [facility] atorvastati n 20 mg tablet 2018-09 00:00: 00 12-12 00:00 :00 No [id number] 20mg Take 1 tablet by mouth at bedtime. [facility] metoprolol succinate XL 50 mg 24 hr tablet 2018-09 00:00: 00 12-12 00:00 :00 No [id number] 50mg Take 1 tablet by mouth 2 (two) times daily. [facility] furosemide 40 mg tablet 2018-09 00:00: 00 12-12 00:00 :00 No [id number] 40mg Take 1 tablet by mouth every morning and evening. [facility] ipratropium -albuterol (DUONEB) 0.5 mg-3 mg(2.5 mg base)/3 mL nebulizer solution 3 mL 05-04 13:00: 00 Yes 3mL 3 mL, Inhalation , QID, First dose on Tue05/04/19 at 0800, Until Discontinu ed, Routine [facility] ibuprofen 600 mg tablet 02-16 00:00: 00 05-03 00:00 :00 No [id number] 600mg Take 1 tablet by mouth every 8 (eight) hours as needed (pain). [facility] magnesium oxide (MAG-OX 400) 400 mg tablet 11-11 00:00: 00 Yes 400mg Take 1 Tab by mouth 3 (three) times daily. [facility] enalapril (VASOTEC) 2.5 mg tablet 11-11 00:00: 00 Yes [id number] 2.5mg Take 1 Tab by mouth 2 (two) times daily. [facility] pantoprazol e (PROTONIX) 40 mg EC tablet 11-11 00:00: 00 Yes 40mg Take 1 Tab by mouth daily. [facility] KCL (KLOR-CON M20) 20 mEq tablet 11-11 00:00: 00 Yes 20meq Take 1 Tab by mouth daily. [facility] furosemide (LASIX) 40 mg tablet 11-11 00:00: 00 Yes [id number] 40mg Take 1 Tab by mouth 2 (two) times daily. [facility] metoprolol succinate XL (TOPROL XL) 100 mg 24 hr tablet 11-11 00:00: 00 Yes 100mg Take 1 Tab by mouth daily. [facility] aspirin 81 mg chewable tablet 2013-09 00:00: 00 11-28 00:00 :00 No 81mg Take 1 Tab by mouth daily. [facility] ipratropium (ATROVENT) 0.02 % nebulizer solution 2013-09 00:00: 00 11-28 00:00 :00 No .5mg Inhale 2.5 mL 4 (four) times daily. [facility] levalbutero l (XOPENEX) 0.31 mg/3 mL nebulizer solution 2013-09 00:00: 00 11-28 00:00 :00 No .31mg Inhale 0.31 mg 3 (three) times daily. [facility] Immunizations Ordered Immunization Name Filled Immunization Name Date Status Comments Source Pneumococcal 20 Conjugate, PCV20 (Prevnar 20) 2022-12-12 00:00:00 Completed [facility] Pneumococcal 20 Conjugate, PCV20 (Prevnar 20) 2022-12-12 00:00:00 Completed [facility] Pneumococcal 20 Conjugate, PCV20 (Prevnar 20) 2022-12-12 00:00:00 Completed [facility] Pneumococcal 20 Conjugate, PCV20 (Prevnar 20) 2022-12-12 00:00:00 Completed [facility] Pneumococcal 20 Conjugate, PCV20 (Prevnar 20) 2022-12-12 00:00:00 Completed [facility] Pneumococcal 20 Conjugate, PCV20 (Prevnar 20) 2022-12-12 00:00:00 Completed [facility] Pneumococcal 20 Conjugate, PCV20 (Prevnar 20) 2022-12-12 00:00:00 Completed [facility] Pneumococcal 20 Conjugate, PCV20 (Prevnar 20) 2022-12-12 00:00:00 Completed [facility] Pneumococcal 20 Conjugate, PCV20 (Prevnar 20) 2022-12-12 00:00:00 Completed [facility] Pneumococcal 20 Conjugate, PCV20 (Prevnar 20) 2022-12-12 00:00:00 Completed [facility] Pneumococcal 20 Conjugate, PCV20 (Prevnar 20) 2022-12-12 00:00:00 Completed [facility] Pneumococcal 20 Conjugate, PCV20 (Prevnar 20) 2022-12-12 00:00:00 Completed [facility] Pneumococcal 20 Conjugate, PCV20 (Prevnar 20) 2022-12-12 00:00:00 Completed [facility] Pneumococcal 20 Conjugate, PCV20 (Prevnar 20) 2022-12-12 00:00:00 Completed [facility] Pneumococcal 20 Conjugate, PCV20 (Prevnar 20) 2022-12-12 00:00:00 Completed [facility] Pneumococcal 20 Conjugate, PCV20 (Prevnar 20) 2022-12-12 00:00:00 Completed [facility] Pneumococcal 20 Conjugate, PCV20 (Prevnar 20) 2022-12-12 00:00:00 Completed [facility] Pneumococcal 20 Conjugate, PCV20 (Prevnar 20) 2022-12-12 00:00:00 Completed [facility] Pneumococcal 20 Conjugate, PCV20 (Prevnar 20) 2022-12-12 00:00:00 Completed [facility] Pneumococcal 20 Conjugate, PCV20 (Prevnar 20) 2022-12-12 00:00:00 Completed [facility] Pneumococcal 20 Conjugate, PCV20 (Prevnar 20) 2022-12-12 00:00:00 Completed [facility] Pneumococcal 20 Conjugate, PCV20 (Prevnar 20) 2022-12-12 00:00:00 Completed [facility] Pneumococcal 20 Conjugate, PCV20 (Prevnar 20) 2022-12-12 00:00:00 Completed [facility] Pneumococcal 20 Conjugate, PCV20 (Prevnar 20) 2022-12-12 00:00:00 Completed [facility] Pneumococcal 20 Conjugate, PCV20 (Prevnar 20) 2022-12-12 00:00:00 Completed [facility] Pneumococcal 20 Conjugate, PCV20 (Prevnar 20) 2022-12-12 00:00:00 Completed [facility] Pneumococcal 20 Conjugate, PCV20 (Prevnar 20) 2022-12-12 00:00:00 Completed [facility] Pneumococcal 20 Conjugate, PCV20 (Prevnar 20) 2022-12-12 00:00:00 Completed [facility] Pneumococcal 20 Conjugate, PCV20 (Prevnar 20) 2022-12-12 00:00:00 Completed [facility] Pneumococcal 20 Conjugate, PCV20 (Prevnar 20) 2022-12-12 00:00:00 Completed [facility] Pneumococcal 20 Conjugate, PCV20 (Prevnar 20) 2022-12-12 00:00:00 Completed [facility] Pneumococcal 20 Conjugate, PCV20 (Prevnar 20) 2022-12-12 00:00:00 Completed [facility] Pneumococcal 20 Conjugate, PCV20 (Prevnar 20) 2022-12-12 00:00:00 Completed [facility] Pneumococcal 20 Conjugate, PCV20 (Prevnar 20) 2022-12-12 00:00:00 Completed [facility] Pneumococcal 20 Conjugate, PCV20 (Prevnar 20) 2022-12-12 00:00:00 Completed [facility] Pneumococcal 20 Conjugate, PCV20 (Prevnar 20) 2022-12-12 00:00:00 Completed [facility] SARS-COV-2 COVID-19 MODERNA 12+ YRS VACCINE 2020-11-23 00:00:00 Completed [facility] SARS-COV-2 COVID-19 MODERNA VACCINE 2020-11-23 00:00:00 Completed [facility] SARS-COV-2 COVID-19 MODERNA 12+ YRS VACCINE 2020-11-23 00:00:00 Completed [facility] SARS-COV-2 COVID-19 MODERNA 12+ YRS VACCINE 2020-11-23 00:00:00 Completed [facility] SARS-COV-2 COVID-19 MODERNA 12+ YRS VACCINE 2020-11-23 00:00:00 Completed [facility] SARS-COV-2 COVID-19 MODERNA 12+ YRS VACCINE 2020-11-23 00:00:00 Completed [facility] SARS-COV-2 COVID-19 MODERNA 12+ YRS VACCINE 2020-11-23 00:00:00 Completed [facility] SARS-COV-2 COVID-19 MODERNA VACCINE 2020-11-23 00:00:00 Completed [facility] SARS-COV-2 COVID-19 MODERNA 12+ YRS VACCINE 2020-11-23 00:00:00 Completed [facility] SARS-COV-2 COVID-19 MODERNA 12+ YRS VACCINE 2020-11-23 00:00:00 Completed [facility] SARS-COV-2 COVID-19 MODERNA 12+ YRS VACCINE 2020-11-23 00:00:00 Completed [facility] SARS-COV-2 COVID-19 MODERNA 12+ YRS VACCINE 2020-11-23 00:00:00 Completed [facility] SARS-COV-2 COVID-19 MODERNA 12+ YRS VACCINE 2020-11-23 00:00:00 Completed [facility] SARS-COV-2 COVID-19 MODERNA 12+ YRS VACCINE 2020-11-23 00:00:00 Completed [facility] SARS-COV-2 COVID-19 MODERNA VACCINE 2020-11-23 00:00:00 Completed [facility] SARS-COV-2 COVID-19 MODERNA 12+ YRS VACCINE 2020-11-23 00:00:00 Completed [facility] SARS-COV-2 COVID-19 MODERNA 12+ YRS VACCINE 2020-11-23 00:00:00 Completed [facility] SARS-COV-2 COVID-19 MODERNA 12+ YRS VACCINE 2020-11-23 00:00:00 Completed [facility] SARS-COV-2 COVID-19 MODERNA 12+ YRS VACCINE 2020-11-23 00:00:00 Completed [facility] SARS-COV-2 COVID-19 MODERNA 12+ YRS VACCINE 2020-11-23 00:00:00 Completed [facility] SARS-COV-2 COVID-19 MODERNA 12+ YRS VACCINE 2020-11-23 00:00:00 Completed [facility] SARS-COV-2 COVID-19 MODERNA 12+ YRS VACCINE 2020-11-23 00:00:00 Completed [facility] SARS-COV-2 COVID-19 MODERNA 12+ YRS VACCINE 2020-11-23 00:00:00 Completed [facility] SARS-COV-2 COVID-19 MODERNA 12+ YRS VACCINE 2020-11-23 00:00:00 Completed [facility] SARS-COV-2 COVID-19 MODERNA 12+ YRS VACCINE 2020-11-23 00:00:00 Completed [facility] SARS-COV-2 COVID-19 MODERNA 12+ YRS VACCINE 2020-11-23 00:00:00 Completed [facility] SARS-COV-2 COVID-19 MODERNA 12+ YRS VACCINE 2020-11-23 00:00:00 Completed [facility] SARS-COV-2 COVID-19 MODERNA 12+ YRS VACCINE 2020-11-23 00:00:00 Completed [facility] SARS-COV-2 COVID-19 MODERNA 12+ YRS VACCINE 2020-11-23 00:00:00 Completed [facility] SARS-COV-2 COVID-19 MODERNA 12+ YRS VACCINE 2020-11-23 00:00:00 Completed [facility] SARS-COV-2 COVID-19 MODERNA 12+ YRS VACCINE 2020-11-23 00:00:00 Completed [facility] SARS-COV-2 COVID-19 MODERNA 12+ YRS VACCINE 2020-11-23 00:00:00 Completed [facility] SARS-COV-2 COVID-19 MODERNA 12+ YRS VACCINE 2020-11-23 00:00:00 Completed [facility] SARS-COV-2 COVID-19 MODERNA 12+ YRS VACCINE 2020-11-23 00:00:00 Completed [facility] SARS-COV-2 COVID-19 MODERNA VACCINE 2020-11-23 00:00:00 Completed [facility] SARS-COV-2 COVID-19 MODERNA 12+ YRS VACCINE 2020-11-23 00:00:00 Completed [facility] SARS-COV-2 COVID-19 MODERNA 12+ YRS VACCINE 2020-11-23 00:00:00 Completed [facility] SARS-COV-2 COVID-19 MODERNA 12+ YRS VACCINE 2020-11-23 00:00:00 Completed [facility] SARS-COV-2 COVID-19 MODERNA 12+ YRS VACCINE 2020-11-23 00:00:00 Completed [facility] SARS-COV-2 COVID-19 MODERNA 12+ YRS VACCINE 2020-11-23 00:00:00 Completed [facility] SARS-COV-2 COVID-19 MODERNA VACCINE 2020-11-23 00:00:00 Completed [facility] SARS-COV-2 COVID-19 MODERNA 12+ YRS VACCINE 2020-11-23 00:00:00 Completed [facility] SARS-COV-2 COVID-19 MODERNA 12+ YRS VACCINE 2020-11-23 00:00:00 Completed [facility] SARS-COV-2 COVID-19 MODERNA 12+ YRS VACCINE 2020-11-23 00:00:00 Completed [facility] SARS-COV-2 COVID-19 MODERNA 12+ YRS VACCINE 2020-11-23 00:00:00 Completed [facility] SARS-COV-2 COVID-19 MODERNA 12+ YRS VACCINE 2020-11-23 00:00:00 Completed [facility] SARS-COV-2 COVID-19 MODERNA VACCINE 2020-11-23 00:00:00 Completed [facility] SARS-COV-2 COVID-19 MODERNA VACCINE 2020-11-23 00:00:00 Completed [facility] SARS-COV-2 COVID-19 MODERNA VACCINE 2020-11-23 00:00:00 Completed [facility] SARS-COV-2 COVID-19 MODERNA VACCINE 2020-11-23 00:00:00 Completed [facility] SARS-COV-2 COVID-19 MODERNA VACCINE 2020-11-23 00:00:00 Completed [facility] SARS-COV-2 COVID-19 MODERNA VACCINE 2020-11-23 00:00:00 Completed [facility] SARS-COV-2 COVID-19 MODERNA VACCINE 2020-11-23 00:00:00 Completed [facility] SARS-COV-2 COVID-19 MODERNA VACCINE 2020-11-23 00:00:00 Completed [facility] SARS-COV-2 COVID-19 MODERNA VACCINE 2020-11-23 00:00:00 Completed [facility] SARS-COV-2 COVID-19 MODERNA VACCINE 2020-11-23 00:00:00 Completed [facility] SARS-COV-2 COVID-19 MODERNA VACCINE 2020-11-23 00:00:00 Completed [facility] SARS-COV-2 COVID-19 MODERNA VACCINE 2020-11-23 00:00:00 Completed [facility] SARS-COV-2 COVID-19 MODERNA VACCINE 2020-11-23 00:00:00 Completed [facility] SARS-COV-2 COVID-19 MODERNA VACCINE 2020-11-23 00:00:00 Completed [facility] SARS-COV-2 COVID-19 MODERNA 12+ YRS VACCINE 2020-11-23 00:00:00 Completed [facility] SARS-COV-2 COVID-19 MODERNA 12+ YRS VACCINE 2020-11-23 00:00:00 Completed [facility] SARS-COV-2 COVID-19 MODERNA 12+ YRS VACCINE 2020-11-23 00:00:00 Completed [facility] SARS-COV-2 COVID-19 MODERNA 12+ YRS VACCINE 2020-11-23 00:00:00 Completed [facility] SARS-COV-2 COVID-19 MODERNA VACCINE 2020-11-23 00:00:00 Completed [facility] SARS-COV-2 COVID-19 MODERNA 12+ YRS VACCINE 2020-11-23 00:00:00 Completed [facility] [facility] SARS-COV-2 COVID-19 MODERNA 12+ YRS VACCINE 2020-11-23 00:00:00 Completed [facility] SARS-COV-2 COVID-19 MODERNA 12+ YRS VACCINE 2020-11-23 00:00:00 Completed [facility] SARS-COV-2 COVID-19 MODERNA VACCINE 2020-10-26 00:00:00 Completed [facility] SARS-COV-2 COVID-19 MODERNA 12+ YRS VACCINE 2020-10-26 00:00:00 Completed [facility] SARS-COV-2 COVID-19 MODERNA 12+ YRS VACCINE 2020-10-26 00:00:00 Completed [facility] SARS-COV-2 COVID-19 MODERNA 12+ YRS VACCINE 2020-10-26 00:00:00 Completed [facility] SARS-COV-2 COVID-19 MODERNA 12+ YRS VACCINE 2020-10-26 00:00:00 Completed [facility] SARS-COV-2 COVID-19 MODERNA 12+ YRS VACCINE 2020-10-26 00:00:00 Completed [facility] SARS-COV-2 COVID-19 MODERNA VACCINE 2020-10-26 00:00:00 Completed [facility] SARS-COV-2 COVID-19 MODERNA 12+ YRS VACCINE 2020-10-26 00:00:00 Completed [facility] SARS-COV-2 COVID-19 MODERNA 12+ YRS VACCINE 2020-10-26 00:00:00 Completed [facility] SARS-COV-2 COVID-19 MODERNA 12+ YRS VACCINE 2020-10-26 00:00:00 Completed [facility] SARS-COV-2 COVID-19 MODERNA 12+ YRS VACCINE 2020-10-26 00:00:00 Completed [facility] SARS-COV-2 COVID-19 MODERNA 12+ YRS VACCINE 2020-10-26 00:00:00 Completed [facility] SARS-COV-2 COVID-19 MODERNA 12+ YRS VACCINE 2020-10-26 00:00:00 Completed [facility] SARS-COV-2 COVID-19 MODERNA 12+ YRS VACCINE 2020-10-26 00:00:00 Completed [facility] SARS-COV-2 COVID-19 MODERNA VACCINE 2020-10-26 00:00:00 Completed [facility] SARS-COV-2 COVID-19 MODERNA 12+ YRS VACCINE 2020-10-26 00:00:00 Completed [facility] SARS-COV-2 COVID-19 MODERNA 12+ YRS VACCINE 2020-10-26 00:00:00 Completed [facility] SARS-COV-2 COVID-19 MODERNA 12+ YRS VACCINE 2020-10-26 00:00:00 Completed [facility] SARS-COV-2 COVID-19 MODERNA 12+ YRS VACCINE 2020-10-26 00:00:00 Completed [facility] SARS-COV-2 COVID-19 MODERNA 12+ YRS VACCINE 2020-10-26 00:00:00 Completed [facility] SARS-COV-2 COVID-19 MODERNA 12+ YRS VACCINE 2020-10-26 00:00:00 Completed [facility] SARS-COV-2 COVID-19 MODERNA 12+ YRS VACCINE 2020-10-26 00:00:00 Completed [facility] SARS-COV-2 COVID-19 MODERNA 12+ YRS VACCINE 2020-10-26 00:00:00 Completed [facility] SARS-COV-2 COVID-19 MODERNA 12+ YRS VACCINE 2020-10-26 00:00:00 Completed [facility] SARS-COV-2 COVID-19 MODERNA 12+ YRS VACCINE 2020-10-26 00:00:00 Completed [facility] SARS-COV-2 COVID-19 MODERNA 12+ YRS VACCINE 2020-10-26 00:00:00 Completed [facility] SARS-COV-2 COVID-19 MODERNA 12+ YRS VACCINE 2020-10-26 00:00:00 Completed [facility] SARS-COV-2 COVID-19 MODERNA 12+ YRS VACCINE 2020-10-26 00:00:00 Completed [facility] SARS-COV-2 COVID-19 MODERNA 12+ YRS VACCINE 2020-10-26 00:00:00 Completed [facility] SARS-COV-2 COVID-19 MODERNA 12+ YRS VACCINE 2020-10-26 00:00:00 Completed [facility] SARS-COV-2 COVID-19 MODERNA 12+ YRS VACCINE 2020-10-26 00:00:00 Completed [facility] SARS-COV-2 COVID-19 MODERNA 12+ YRS VACCINE 2020-10-26 00:00:00 Completed [facility] SARS-COV-2 COVID-19 MODERNA 12+ YRS VACCINE 2020-10-26 00:00:00 Completed [facility] SARS-COV-2 COVID-19 MODERNA 12+ YRS VACCINE 2020-10-26 00:00:00 Completed [facility] SARS-COV-2 COVID-19 MODERNA VACCINE 2020-10-26 00:00:00 Completed [facility] SARS-COV-2 COVID-19 MODERNA 12+ YRS VACCINE 2020-10-26 00:00:00 Completed [facility] SARS-COV-2 COVID-19 MODERNA 12+ YRS VACCINE 2020-10-26 00:00:00 Completed [facility] SARS-COV-2 COVID-19 MODERNA 12+ YRS VACCINE 2020-10-26 00:00:00 Completed [facility] SARS-COV-2 COVID-19 MODERNA 12+ YRS VACCINE 2020-10-26 00:00:00 Completed [facility] SARS-COV-2 COVID-19 MODERNA 12+ YRS VACCINE 2020-10-26 00:00:00 Completed [facility] SARS-COV-2 COVID-19 MODERNA VACCINE 2020-10-26 00:00:00 Completed [facility] SARS-COV-2 COVID-19 MODERNA 12+ YRS VACCINE 2020-10-26 00:00:00 Completed [facility] SARS-COV-2 COVID-19 MODERNA 12+ YRS VACCINE 2020-10-26 00:00:00 Completed [facility] SARS-COV-2 COVID-19 MODERNA 12+ YRS VACCINE 2020-10-26 00:00:00 Completed [facility] SARS-COV-2 COVID-19 MODERNA 12+ YRS VACCINE 2020-10-26 00:00:00 Completed [facility] SARS-COV-2 COVID-19 MODERNA 12+ YRS VACCINE 2020-10-26 00:00:00 Completed [facility] SARS-COV-2 COVID-19 MODERNA VACCINE 2020-10-26 00:00:00 Completed [facility] SARS-COV-2 COVID-19 MODERNA VACCINE 2020-10-26 00:00:00 Completed [facility] SARS-COV-2 COVID-19 MODERNA VACCINE 2020-10-26 00:00:00 Completed [facility] SARS-COV-2 COVID-19 MODERNA VACCINE 2020-10-26 00:00:00 Completed [facility] SARS-COV-2 COVID-19 MODERNA VACCINE 2020-10-26 00:00:00 Completed [facility] SARS-COV-2 COVID-19 MODERNA VACCINE 2020-10-26 00:00:00 Completed [facility] SARS-COV-2 COVID-19 MODERNA VACCINE 2020-10-26 00:00:00 Completed [facility] SARS-COV-2 COVID-19 MODERNA VACCINE 2020-10-26 00:00:00 Completed [facility] SARS-COV-2 COVID-19 MODERNA VACCINE 2020-10-26 00:00:00 Completed [facility] SARS-COV-2 COVID-19 MODERNA VACCINE 2020-10-26 00:00:00 Completed [facility] SARS-COV-2 COVID-19 MODERNA VACCINE 2020-10-26 00:00:00 Completed [facility] SARS-COV-2 COVID-19 MODERNA VACCINE 2020-10-26 00:00:00 Completed [facility] SARS-COV-2 COVID-19 MODERNA VACCINE 2020-10-26 00:00:00 Completed [facility] SARS-COV-2 COVID-19 MODERNA VACCINE 2020-10-26 00:00:00 Completed [facility] SARS-COV-2 COVID-19 MODERNA 12+ YRS VACCINE 2020-10-26 00:00:00 Completed [facility] SARS-COV-2 COVID-19 MODERNA 12+ YRS VACCINE 2020-10-26 00:00:00 Completed [facility] SARS-COV-2 COVID-19 MODERNA 12+ YRS VACCINE 2020-10-26 00:00:00 Completed [facility] SARS-COV-2 COVID-19 MODERNA 12+ YRS VACCINE 2020-10-26 00:00:00 Completed [facility] SARS-COV-2 COVID-19 MODERNA VACCINE 2020-10-26 00:00:00 Completed [facility] SARS-COV-2 COVID-19 MODERNA 12+ YRS VACCINE 2020-10-26 00:00:00 Completed [facility] SARS-COV-2 COVID-19 MODERNA 12+ YRS VACCINE 2020-10-26 00:00:00 Completed [facility] SARS-COV-2 COVID-19 MODERNA 12+ YRS VACCINE 2020-10-26 00:00:00 Completed [facility] Td 2019-02-16 00:00:00 Completed [facility] TD, NOS 2019-02-16 00:00:00 Completed [facility] TD, NOS 2019-02-16 00:00:00 Completed [facility] TD, NOS 2019-02-16 00:00:00 Completed [facility] TD, NOS 2019-02-16 00:00:00 Completed [facility] TD, NOS 2019-02-16 00:00:00 Completed [facility] Td 2019-02-16 00:00:00 Completed [facility] TD, NOS 2019-02-16 00:00:00 Completed [facility] TD, NOS 2019-02-16 00:00:00 Completed [facility] TD, NOS 2019-02-16 00:00:00 Completed [facility] TD, NOS 2019-02-16 00:00:00 Completed [facility] TD, NOS 2019-02-16 00:00:00 Completed [facility] TD, NOS 2019-02-16 00:00:00 Completed [facility] TD, NOS 2019-02-16 00:00:00 Completed [facility] Td 2019-02-16 00:00:00 Completed [facility] TD, NOS 2019-02-16 00:00:00 Completed [facility] TD, NOS 2019-02-16 00:00:00 Completed [facility] TD, NOS 2019-02-16 00:00:00 Completed [facility] TD, NOS 2019-02-16 00:00:00 Completed [facility] Td 2019-02-16 00:00:00 Completed [facility] TD, NOS 2019-02-16 00:00:00 Completed [facility] TD, NOS 2019-02-16 00:00:00 Completed [facility] TD, NOS 2019-02-16 00:00:00 Completed [facility] TD, NOS 2019-02-16 00:00:00 Completed [facility] Td 2019-02-16 00:00:00 Completed [facility] TD, NOS 2019-02-16 00:00:00 Completed [facility] TD, NOS 2019-02-16 00:00:00 Completed [facility] TD, NOS 2019-02-16 00:00:00 Completed [facility] TD, NOS 2019-02-16 00:00:00 Completed [facility] TD, NOS 2019-02-16 00:00:00 Completed [facility] TD, NOS 2019-02-16 00:00:00 Completed [facility] TD, NOS 2019-02-16 00:00:00 Completed [facility] Td 2019-02-16 00:00:00 Completed [facility] TD, NOS 2019-02-16 00:00:00 Completed [facility] TD, NOS 2019-02-16 00:00:00 Completed [facility] TD, NOS 2019-02-16 00:00:00 Completed [facility] TD, NOS 2019-02-16 00:00:00 Completed [facility] Td 2019-02-16 00:00:00 Completed [facility] TD, NOS 2019-02-16 00:00:00 Completed [facility] TD, NOS 2019-02-16 00:00:00 Completed [facility] TD, NOS 2019-02-16 00:00:00 Completed [facility] TD, NOS 2019-02-16 00:00:00 Completed [facility] Td 2019-02-16 00:00:00 Completed [facility] TD, NOS 2019-02-16 00:00:00 Completed [facility] TD, NOS 2019-02-16 00:00:00 Completed [facility] TD, NOS 2019-02-16 00:00:00 Completed [facility] TD, NOS 2019-02-16 00:00:00 Completed [facility] TD, NOS 2019-02-16 00:00:00 Completed [facility] TD, NOS 2019-02-16 00:00:00 Completed [facility] Td 2019-02-16 00:00:00 Completed [facility] Td 2019-02-16 00:00:00 Completed [facility] Td 2019-02-16 00:00:00 Completed [facility] Td 2019-02-16 00:00:00 Completed [facility] Td 2019-02-16 00:00:00 Completed [facility] Td 2019-02-16 00:00:00 Completed [facility] Td 2019-02-16 00:00:00 Completed [facility] Td 2019-02-16 00:00:00 Completed [facility] Td 2019-02-16 00:00:00 Completed [facility] Td 2019-02-16 00:00:00 Completed [facility] Td 2019-02-16 00:00:00 Completed [facility] Td 2019-02-16 00:00:00 Completed [facility] Td 2019-02-16 00:00:00 Completed [facility] Td 2019-02-16 00:00:00 Completed [facility] TD, NOS 2019-02-16 00:00:00 Completed [facility] TD, NOS 2019-02-16 00:00:00 Completed [facility] TD, NOS 2019-02-16 00:00:00 Completed [facility] TD, NOS 2019-02-16 00:00:00 Completed [facility] Td 2019-02-16 00:00:00 Completed [facility] TD, NOS 2019-02-16 00:00:00 Completed [facility] TD, NOS 2019-02-16 00:00:00 Completed [facility] TD, NOS 2019-02-16 00:00:00 Completed [facility] Pneumococcal Polysaccharide, PPSV23 (PNEUMOVAX) 2014-09-05 00:00:00 Completed [facility] Influenza Virus Vaccine Quad IM 3+ YRS 2014-09-05 00:00:00 Completed [facility] Pneumococcal Polysaccharide, PPSV23 (PNEUMOVAX) 2014-09-05 00:00:00 Completed [facility] Influenza Virus Vaccine Quad IM 3+ YRS 2014-09-05 00:00:00 Completed [facility] Pneumococcal Polysaccharide, PPSV23 (PNEUMOVAX) 2014-09-05 00:00:00 Completed [facility] Influenza Virus Vaccine Quad IM 3+ YRS 2014-09-05 00:00:00 Completed [facility] Pneumococcal Polysaccharide, PPSV23 (PNEUMOVAX) 2014-09-05 00:00:00 Completed [facility] Influenza Virus Vaccine Quad IM 3+ YRS 2014-09-05 00:00:00 Completed [facility] Pneumococcal Polysaccharide, PPSV23 (PNEUMOVAX) 2014-09-05 00:00:00 Completed [facility] Influenza Virus Vaccine Quad IM 3+ YRS 2014-09-05 00:00:00 Completed [facility] Pneumococcal Polysaccharide, PPSV23 (PNEUMOVAX) 2014-09-05 00:00:00 Completed [facility] Influenza Virus Vaccine Quad IM 3+ YRS 2014-09-05 00:00:00 Completed [facility] Pneumococcal Polysaccharide, PPSV23 (PNEUMOVAX) 2014-09-05 00:00:00 Completed [facility] Influenza Virus Vaccine Quad IM 3+ YRS 2014-09-05 00:00:00 Completed [facility] Pneumococcal Polysaccharide, PPSV23 (PNEUMOVAX) 2014-09-05 00:00:00 Completed [facility] Influenza Virus Vaccine Quad IM 3+ YRS 2014-09-05 00:00:00 Completed [facility] Pneumococcal Polysaccharide, PPSV23 (PNEUMOVAX) 2014-09-05 00:00:00 Completed [facility] Influenza Virus Vaccine Quad IM 3+ YRS 2014-09-05 00:00:00 Completed [facility] Pneumococcal Polysaccharide, PPSV23 (PNEUMOVAX) 2014-09-05 00:00:00 Completed [facility] Influenza Virus Vaccine Quad IM 3+ YRS 2014-09-05 00:00:00 Completed [facility] Pneumococcal Polysaccharide, PPSV23 (PNEUMOVAX) 2014-09-05 00:00:00 Completed [facility] Influenza Virus Vaccine Quad IM 3+ YRS 2014-09-05 00:00:00 Completed [facility] Pneumococcal Polysaccharide, PPSV23 (PNEUMOVAX) 2014-09-05 00:00:00 Completed [facility] Influenza Virus Vaccine Quad IM 3+ YRS 2014-09-05 00:00:00 Completed [facility] Pneumococcal Polysaccharide, PPSV23 (PNEUMOVAX) 2014-09-05 00:00:00 Completed [facility] Influenza Virus Vaccine Quad IM 3+ YRS 2014-09-05 00:00:00 Completed [facility] Influenza Virus Vaccine Quad IM 3+ YRS 2014-09-05 00:00:00 Completed [facility] Pneumococcal Polysaccharide, PPSV23 (PNEUMOVAX) 2014-09-05 00:00:00 Completed [facility] Pneumococcal Polysaccharide, PPSV23 (PNEUMOVAX) 2014-09-05 00:00:00 Completed [facility] Influenza Virus Vaccine Quad IM 3+ YRS 2014-09-05 00:00:00 Completed [facility] Pneumococcal Polysaccharide, PPSV23 (PNEUMOVAX) 2014-09-05 00:00:00 Completed [facility] Influenza Virus Vaccine Quad IM 3+ YRS 2014-09-05 00:00:00 Completed [facility] Pneumococcal Polysaccharide, PPSV23 (PNEUMOVAX) 2014-09-05 00:00:00 Completed [facility] Influenza Virus Vaccine Quad IM 3+ YRS 2014-09-05 00:00:00 Completed [facility] Pneumococcal Polysaccharide, PPSV23 (PNEUMOVAX) 2014-09-05 00:00:00 Completed [facility] Influenza Virus Vaccine Quad IM 3+ YRS 2014-09-05 00:00:00 Completed [facility] Pneumococcal Polysaccharide, PPSV23 (PNEUMOVAX) 2014-09-05 00:00:00 Completed [facility] Influenza Virus Vaccine Quad IM 3+ YRS 2014-09-05 00:00:00 Completed [facility] Pneumococcal Polysaccharide, PPSV23 (PNEUMOVAX) 2014-09-05 00:00:00 Completed [facility] Influenza Virus Vaccine Quad IM 3+ YRS 2014-09-05 00:00:00 Completed [facility] Pneumococcal Polysaccharide, PPSV23 (PNEUMOVAX) 2014-09-05 00:00:00 Completed [facility] Influenza Virus Vaccine Quad IM 3+ YRS 2014-09-05 00:00:00 Completed [facility] Pneumococcal Polysaccharide, PPSV23 (PNEUMOVAX) 2014-09-05 00:00:00 Completed [facility] Influenza Virus Vaccine Quad IM 3+ YRS 2014-09-05 00:00:00 Completed [facility] Pneumococcal Polysaccharide, PPSV23 (PNEUMOVAX) 2014-09-05 00:00:00 Completed [facility] Influenza Virus Vaccine Quad IM 3+ YRS 2014-09-05 00:00:00 Completed [facility] Pneumococcal Polysaccharide, PPSV23 (PNEUMOVAX) 2014-09-05 00:00:00 Completed [facility] Influenza Virus Vaccine Quad IM 3+ YRS 2014-09-05 00:00:00 Completed [facility] Pneumococcal Polysaccharide, PPSV23 (PNEUMOVAX) 2014-09-05 00:00:00 Completed [facility] Influenza Virus Vaccine Quad IM 3+ YRS 2014-09-05 00:00:00 Completed [facility] Pneumococcal Polysaccharide, PPSV23 (PNEUMOVAX) 2014-09-05 00:00:00 Completed [facility] Influenza Virus Vaccine Quad IM 3+ YRS 2014-09-05 00:00:00 Completed [facility] Pneumococcal Polysaccharide, PPSV23 (PNEUMOVAX) 2014-09-05 00:00:00 Completed [facility] Influenza Virus Vaccine Quad IM 3+ YRS 2014-09-05 00:00:00 Completed [facility] Pneumococcal Polysaccharide, PPSV23 (PNEUMOVAX) 2014-09-05 00:00:00 Completed [facility] Influenza Virus Vaccine Quad IM 3+ YRS 2014-09-05 00:00:00 Completed [facility] Pneumococcal Polysaccharide, PPSV23 (PNEUMOVAX) 2014-09-05 00:00:00 Completed [facility] Influenza Virus Vaccine Quad IM 3+ YRS 2014-09-05 00:00:00 Completed [facility] Pneumococcal Polysaccharide, PPSV23 (PNEUMOVAX) 2014-09-05 00:00:00 Completed [facility] Influenza Virus Vaccine Quad IM 3+ YRS 2014-09-05 00:00:00 Completed [facility] Pneumococcal Polysaccharide, PPSV23 (PNEUMOVAX) 2014-09-05 00:00:00 Completed [facility] Influenza Virus Vaccine Quad IM 3+ YRS 2014-09-05 00:00:00 Completed [facility] Influenza Virus Vaccine Quad IM 3+ YRS 2014-09-05 00:00:00 Completed [facility] Pneumococcal Polysaccharide, PPSV23 (PNEUMOVAX) 2014-09-05 00:00:00 Completed [facility] Pneumococcal Polysaccharide, PPSV23 (PNEUMOVAX) 2014-09-05 00:00:00 Completed [facility] Influenza Virus Vaccine Quad IM 3+ YRS 2014-09-05 00:00:00 Completed [facility] Pneumococcal Polysaccharide, PPSV23 (PNEUMOVAX) 2014-09-05 00:00:00 Completed [facility] Influenza Virus Vaccine Quad IM 3+ YRS 2014-09-05 00:00:00 Completed [facility] Pneumococcal Polysaccharide, PPSV23 (PNEUMOVAX) 2014-09-05 00:00:00 Completed [facility] Influenza Virus Vaccine Quad IM 3+ YRS 2014-09-05 00:00:00 Completed [facility] Pneumococcal Polysaccharide, PPSV23 (PNEUMOVAX) 2014-09-05 00:00:00 Completed [facility] Influenza Virus Vaccine Quad IM 3+ YRS 2014-09-05 00:00:00 Completed [facility] Pneumococcal Polysaccharide, PPSV23 (PNEUMOVAX) 2014-09-05 00:00:00 Completed [facility] Influenza Virus Vaccine Quad IM 3+ YRS 2014-09-05 00:00:00 Completed [facility] Pneumococcal Polysaccharide, PPSV23 (PNEUMOVAX) 2014-09-05 00:00:00 Completed [facility] Influenza Virus Vaccine Quad IM 3+ YRS 2014-09-05 00:00:00 Completed [facility] Pneumococcal Polysaccharide, PPSV23 (PNEUMOVAX) 2014-09-05 00:00:00 Completed [facility] Influenza Virus Vaccine Quad IM 3+ YRS 2014-09-05 00:00:00 Completed [facility] Pneumococcal Polysaccharide, PPSV23 (PNEUMOVAX) 2014-09-05 00:00:00 Completed [facility] Influenza Virus Vaccine Quad IM 3+ YRS 2014-09-05 00:00:00 Completed [facility] Pneumococcal Polysaccharide, PPSV23 (PNEUMOVAX) 2014-09-05 00:00:00 Completed [facility] Influenza Virus Vaccine Quad IM 3+ YRS 2014-09-05 00:00:00 Completed [facility] Pneumococcal Polysaccharide, PPSV23 (PNEUMOVAX) 2014-09-05 00:00:00 Completed [facility] Influenza Virus Vaccine Quad IM 3+ YRS 2014-09-05 00:00:00 Completed [facility] Pneumococcal Polysaccharide, PPSV23 (PNEUMOVAX) 2014-09-05 00:00:00 Completed [facility] Influenza Virus Vaccine Quad IM 3+ YRS 2014-09-05 00:00:00 Completed [facility] Pneumococcal Polysaccharide, PPSV23 (PNEUMOVAX) 2014-09-05 00:00:00 Completed [facility] Influenza Virus Vaccine Quad IM 3+ YRS 2014-09-05 00:00:00 Completed [facility] Pneumococcal Polysaccharide, PPSV23 (PNEUMOVAX) 2014-09-05 00:00:00 Completed [facility] Influenza Virus Vaccine Quad IM 3+ YRS 2014-09-05 00:00:00 Completed [facility] Pneumococcal Polysaccharide, PPSV23 (PNEUMOVAX) 2014-09-05 00:00:00 Completed [facility] Influenza Virus Vaccine Quad IM 3+ YRS 2014-09-05 00:00:00 Completed [facility] Pneumococcal Polysaccharide, PPSV23 (PNEUMOVAX) 2014-09-05 00:00:00 Completed [facility] Influenza Virus Vaccine Quad IM 3+ YRS 2014-09-05 00:00:00 Completed [facility] Pneumococcal Polysaccharide, PPSV23 (PNEUMOVAX) 2014-09-05 00:00:00 Completed [facility] Influenza Virus Vaccine Quad IM 3+ YRS 2014-09-05 00:00:00 Completed [facility] Pneumococcal Polysaccharide, PPSV23 (PNEUMOVAX) 2014-09-05 00:00:00 Completed [facility] Influenza Virus Vaccine Quad IM 3+ YRS 2014-09-05 00:00:00 Completed [facility] Pneumococcal Polysaccharide, PPSV23 (PNEUMOVAX) 2014-09-05 00:00:00 Completed [facility] Influenza Virus Vaccine Quad IM 3+ YRS 2014-09-05 00:00:00 Completed [facility] Pneumococcal Polysaccharide, PPSV23 (PNEUMOVAX) 2014-09-05 00:00:00 Completed [facility] Influenza Virus Vaccine Quad IM 3+ YRS 2014-09-05 00:00:00 Completed [facility] Pneumococcal Polysaccharide, PPSV23 (PNEUMOVAX) 2014-09-05 00:00:00 Completed [facility] Influenza Virus Vaccine Quad IM 3+ YRS 2014-09-05 00:00:00 Completed [facility] Pneumococcal Polysaccharide, PPSV23 (PNEUMOVAX) 2014-09-05 00:00:00 Completed [facility] Influenza Virus Vaccine Quad IM 3+ YRS 2014-09-05 00:00:00 Completed [facility] Pneumococcal Polysaccharide, PPSV23 (PNEUMOVAX) 2014-09-05 00:00:00 Completed [facility] Influenza Virus Vaccine Quad IM 3+ YRS 2014-09-05 00:00:00 Completed [facility] Pneumococcal Polysaccharide, PPSV23 (PNEUMOVAX) 2014-09-05 00:00:00 Completed [facility] Influenza Virus Vaccine Quad IM 3+ YRS 2014-09-05 00:00:00 Completed [facility] Pneumococcal Polysaccharide, PPSV23 (PNEUMOVAX) 2014-09-05 00:00:00 Completed [facility] Influenza Virus Vaccine Quad IM 3+ YRS 2014-09-05 00:00:00 Completed [facility] Pneumococcal Polysaccharide, PPSV23 (PNEUMOVAX) 2014-09-05 00:00:00 Completed [facility] Influenza Virus Vaccine Quad IM 3+ YRS 2014-09-05 00:00:00 Completed [facility] Pneumococcal Polysaccharide, PPSV23 (PNEUMOVAX) 2014-09-05 00:00:00 Completed [facility] Influenza Virus Vaccine Quad IM 3+ YRS 2014-09-05 00:00:00 Completed [facility] Pneumococcal Polysaccharide, PPSV23 (PNEUMOVAX) 2014-09-05 00:00:00 Completed [facility] Influenza Virus Vaccine Quad IM 3+ YRS 2014-09-05 00:00:00 Completed [facility] Pneumococcal Polysaccharide, PPSV23 (PNEUMOVAX) 2014-09-05 00:00:00 Completed [facility] Influenza Virus Vaccine Quad IM 3+ YRS 2014-09-05 00:00:00 Completed [facility] Pneumococcal Polysaccharide, PPSV23 (PNEUMOVAX) 2014-09-05 00:00:00 Completed [facility] Influenza Virus Vaccine Quad IM 3+ YRS 2014-09-05 00:00:00 Completed [facility] Pneumococcal Polysaccharide, PPSV23 (PNEUMOVAX) 2014-09-05 00:00:00 Completed [facility] Influenza Virus Vaccine Quad IM 3+ YRS 2014-09-05 00:00:00 Completed [facility] Pneumococcal Polysaccharide, PPSV23 (PNEUMOVAX) 2014-09-05 00:00:00 Completed [facility] Influenza Virus Vaccine Quad IM 3+ YRS 2014-09-05 00:00:00 Completed [facility] Pneumococcal Polysaccharide, PPSV23 (PNEUMOVAX) 2014-09-05 00:00:00 Completed [facility] Influenza Virus Vaccine Quad IM 3+ YRS 2014-09-05 00:00:00 Completed [facility] Pneumococcal Polysaccharide, PPSV23 (PNEUMOVAX) 2014-09-05 00:00:00 Completed [facility] Influenza Virus Vaccine Quad IM 3+ YRS 2014-09-05 00:00:00 Completed [facility] Pneumococcal Polysaccharide, PPSV23 (PNEUMOVAX) 2014-09-05 00:00:00 Completed [facility] Influenza Virus Vaccine Quad IM 3+ YRS 2014-09-05 00:00:00 Completed [facility] Influenza Virus Vaccine Quad IM 3+ YRS 2014-09-05 00:00:00 Completed [facility] Pneumococcal Polysaccharide, PPSV23 (PNEUMOVAX) 2014-09-05 00:00:00 Completed [facility] Pneumococcal Polysaccharide, PPSV23 (PNEUMOVAX) 2014-09-05 00:00:00 Completed [facility] Influenza Virus Vaccine Quad IM 3+ YRS 2014-09-05 00:00:00 Completed [facility] Pneumococcal Polysaccharide, PPSV23 (PNEUMOVAX) 2014-09-05 00:00:00 Completed [facility] Influenza Virus Vaccine Quad IM 3+ YRS 2014-09-05 00:00:00 Completed [facility] Pneumococcal Polysaccharide, PPSV23 (PNEUMOVAX) 2014-09-05 00:00:00 Completed [facility] Influenza Virus Vaccine Quad IM 3+ YRS 2014-09-05 00:00:00 Completed [facility] Pneumococcal Polysaccharide, PPSV23 (PNEUMOVAX) 2014-09-05 00:00:00 Completed [facility] Influenza Virus Vaccine Quad IM 3+ YRS 2014-09-05 00:00:00 Completed [facility] Influenza Virus Vaccine Quad IM 3+ YRS Unknown Completed [facility] Pneumococcal Polysaccharide, PPSV23 (PNEUMOVAX) Unknown Completed [facility] TD, NOS Unknown Completed [facility] SARS-COV-2 COVID-19 MODERNA 12+ YRS VACCINE Unknown Completed [facility] SARS-COV-2 COVID-19 MODERNA 12+ YRS VACCINE Unknown Completed [facility] Pneumococcal 20 Conjugate, PCV20 (Prevnar 20) Unknown Completed [facility] Influenza Virus Vaccine Quad IM 3+ YRS Unknown Completed [facility] Pneumococcal Polysaccharide, PPSV23 (PNEUMOVAX) Unknown Completed [facility] TD, NOS Unknown Completed [facility] SARS-COV-2 COVID-19 MODERNA 12+ YRS VACCINE Unknown Completed [facility] SARS-COV-2 COVID-19 MODERNA 12+ YRS VACCINE Unknown Completed [facility] Pneumococcal 20 Conjugate, PCV20 (Prevnar 20) Unknown Completed [facility] Influenza Virus Vaccine Quad IM 3+ YRS Unknown Completed [facility] Pneumococcal Polysaccharide, PPSV23 (PNEUMOVAX) Unknown Completed [facility] TD, NOS Unknown Completed [facility] SARS-COV-2 COVID-19 MODERNA 12+ YRS VACCINE Unknown Completed [facility] SARS-COV-2 COVID-19 MODERNA 12+ YRS VACCINE Unknown Completed [facility] Pneumococcal 20 Conjugate, PCV20 (Prevnar 20) Unknown Completed [facility] Vital Signs Vital Name Observation Time Observation Value Comments S ource Systolic blood pressure 2023-04-19 15:37:00 126 mm[Hg] [facility] Diastolic blood pressure 2023-04-19 15:37:00 83 mm[Hg] [facility] Heart rate 2023-04-19 15:37:00 94 /min [facility] Respiratory rate 2023-04-19 15:35:00 18 /min [facility] Body height 2023-04-19 15:35:00 177.8 cm [facility] Body weight 2023-04-19 15:35:00 59.138 kg [facility] BMI 2023-04-19 15:35:00 18.71 kg/m2 [facility] Oxygen saturation in Arterial blood by Pulse oximetry 2023-04-19 15:35:00 94 /min [facility] Systolic blood pressure 2023-03-01 20:27:00 143 mm[Hg] [facility] Diastolic blood pressure 2023-03-01 20:27:00 87 mm[Hg] [facility] Heart rate 2023-03-01 20:27:00 99 /min [facility] Body height 2023-03-01 20:27:00 177.8 cm [facility] Body weight 2023-03-01 20:27:00 57.153 kg [facility] BMI 2023-03-01 20:27:00 18.08 kg/m2 [facility] Oxygen saturation in Arterial blood by Pulse oximetry 2023-03-01 20:27:00 99 /min [facility] Systolic blood pressure 2023-02-18 16:17:00 144 mm[Hg] [facility] Diastolic blood pressure 2023-02-18 16:17:00 68 mm[Hg] [facility] Heart rate 2023-02-18 16:17:00 55 /min [facility] Body temperature 2023-02-18 16:17:00 36.06 Tia [facility] Respiratory rate 2023-02-18 16:17:00 18 /min [facility] Oxygen saturation in Arterial blood by Pulse oximetry 2023-02-18 16:17:00 100 /min [facility] Body weight 2023-02-18 07:50:00 58.968 kg [facility] BMI 2023-02-18 07:50:00 18.65 kg/m2 [facility] Body height 2023-02-16 00:31:00 177.8 cm [facility] Oxygen saturation in Arterial blood by Pulse oximetry 2023-02-07 19:29:00 99 /min [facility] Systolic blood pressure 2023-02-07 19:27:00 103 mm[Hg] [facility] Diastolic blood pressure 2023-02-07 19:27:00 75 mm[Hg] [facility] Heart rate 2023-02-07 19:27:00 104 /min [facility] Body temperature 2023-02-07 19:27:00 36.39 Tia [facility] Respiratory rate 2023-02-07 19:27:00 22 /min [facility] Body weight 2023-02-07 19:27:00 72.576 kg [facility] BMI 2023-02-07 19:27:00 22.96 kg/m2 [facility] Heart rate 2023-02-05 20:17:00 85 /min [facility] Respiratory rate 2023-02-05 20:17:00 18 /min [facility] Oxygen saturation in Arterial blood by Pulse oximetry 2023-02-05 20:17:00 100 /min [facility] Systolic blood pressure 2023-02-05 19:53:35 98 mm[Hg] [facility] Diastolic blood pressure 2023-02-05 19:53:35 71 mm[Hg] [facility] Body temperature 2023-02-05 19:51:00 36.5 Tia [facility] Body height 2023-02-05 19:51:00 177.8 cm [facility] Body weight 2023-02-05 19:51:00 72.576 kg [facility] BMI 2023-02-05 19:51:00 22.96 kg/m2 [facility] Heart rate 2023-02-04 20:31:00 76 /min [facility] Respiratory rate 2023-02-04 20:31:00 18 /min [facility] Oxygen saturation in Arterial blood by Pulse oximetry 2023-02-04 20:31:00 97 /min [facility] Systolic blood pressure 2023-02-04 20:15:00 126 mm[Hg] [facility] Diastolic blood pressure 2023-02-04 20:15:00 98 mm[Hg] [facility] Body temperature 2023-02-04 20:15:00 36.83 Tia [facility] Body weight 2023-02-04 20:15:00 72.576 kg [facility] BMI 2023-02-04 20:15:00 22.96 kg/m2 [facility] Systolic blood pressure 2023-02-03 23:00:00 100 mm[Hg] [facility] Diastolic blood pressure 2023-02-03 23:00:00 65 mm[Hg] [facility] Heart rate 2023-02-03 23:00:00 115 /min [facility] Respiratory rate 2023-02-03 23:00:00 20 /min [facility] Oxygen saturation in Arterial blood by Pulse oximetry 2023-02-03 23:00:00 97 /min [facility] Body temperature 2023-02-03 22:44:00 36.72 Tia [facility] Body weight 2023-02-03 22:44:00 72.576 kg [facility] BMI 2023-02-03 22:44:00 22.96 kg/m2 [facility] Systolic blood pressure 2023-02-03 20:02:00 128 mm[Hg] [facility] Diastolic blood pressure 2023-02-03 20:02:00 81 mm[Hg] [facility] Heart rate 2023-02-03 20:02:00 88 /min [facility] Respiratory rate 2023-02-03 20:02:00 25 /min [facility] Oxygen saturation in Arterial blood by Pulse oximetry 2023-02-03 20:02:00 94 /min [facility] Body temperature 2023-02-03 18:18:00 36.61 Tia [facility] Body weight 2023-02-03 17:41:00 72.576 kg [facility] BMI 2023-02-03 17:41:00 22.96 kg/m2 [facility] Heart rate 2023-02-02 22:49:00 107 /min [facility] Respiratory rate 2023-02-02 22:49:00 20 /min [facility] Oxygen saturation in Arterial blood by Pulse oximetry 2023-02-02 22:49:00 94 /min [facility] Systolic blood pressure 2023-02-02 22:32:00 102 mm[Hg] [facility] Diastolic blood pressure 2023-02-02 22:32:00 74 mm[Hg] [facility] Body temperature 2023-02-02 21:58:32 35.83 Tia [facility] Body height 2023-02-02 21:54:00 177.8 cm [facility] Body weight 2023-02-02 21:54:00 72.576 kg [facility] BMI 2023-02-02 21:54:00 22.96 kg/m2 [facility] Systolic blood pressure 2023-01-31 21:00:00 140 mm[Hg] [facility] Diastolic blood pressure 2023-01-31 21:00:00 72 mm[Hg] [facility] Heart rate 2023-01-31 21:00:00 89 /min [facility] Respiratory rate 2023-01-31 21:00:00 20 /min [facility] Oxygen saturation in Arterial blood by Pulse oximetry 2023-01-31 21:00:00 97 /min [facility] Body temperature 2023-01-31 18:50:00 36.72 Tia [facility] Body weight 2023-01-31 18:50:00 72.576 kg [facility] BMI 2023-01-31 18:50:00 22.96 kg/m2 [facility] Systolic blood pressure 2023-01-31 16:09:00 130 mm[Hg] [facility] Diastolic blood pressure 2023-01-31 16:09:00 72 mm[Hg] [facility] Heart rate 2023-01-31 16:09:00 99 /min [facility] Body temperature 2023-01-31 16:09:00 36.39 Tia [facility] Respiratory rate 2023-01-31 16:09:00 18 /min [facility] Body height 2023-01-31 16:09:00 177.8 cm [facility] Body weight 2023-01-31 16:09:00 72.576 kg [facility] BMI 2023-01-31 16:09:00 22.96 kg/m2 [facility] Oxygen saturation in Arterial blood by Pulse oximetry 2023-01-31 16:09:00 97 /min [facility] Systolic blood pressure 2023-01-31 14:50:00 134 mm[Hg] [facility] Diastolic blood pressure 2023-01-31 14:50:00 72 mm[Hg] [facility] Heart rate 2023-01-31 14:50:00 85 /min [facility] Body temperature 2023-01-31 14:50:00 36.39 Tia [facility] Respiratory rate 2023-01-31 14:50:00 20 /min [facility] Body weight 2023-01-31 14:50:00 72.576 kg [facility] BMI 2023-01-31 14:50:00 22.96 kg/m2 [facility] Oxygen saturation in Arterial blood by Pulse oximetry 2023-01-31 14:50:00 100 /min [facility] Respiratory rate 2023-01-29 13:40:00 20 /min [facility] Oxygen saturation in Arterial blood by Pulse oximetry 2023-01-29 13:40:00 100 /min [facility] Systolic blood pressure 2023-01-29 13:06:00 123 mm[Hg] [facility] Diastolic blood pressure 2023-01-29 13:06:00 76 mm[Hg] [facility] Heart rate 2023-01-29 13:06:00 97 /min [facility] Body temperature 2023-01-29 13:06:00 36.61 Tia [facility] Body height 2023-01-29 13:06:00 177.8 cm [facility] Body weight 2023-01-29 13:06:00 72.576 kg [facility] BMI 2023-01-29 13:06:00 22.96 kg/m2 [facility] Systolic blood pressure 2023-01-27 11:47:00 115 mm[Hg] [facility] Diastolic blood pressure 2023-01-27 11:47:00 75 mm[Hg] [facility] Heart rate 2023-01-27 11:47:00 100 /min [facility] Body temperature 2023-01-27 11:47:00 35.78 Tia [facility] Respiratory rate 2023-01-27 11:47:00 28 /min [facility] Oxygen saturation in Arterial blood by Pulse oximetry 2023-01-27 11:47:00 99 /min [facility] Body height 2023-01-27 09:57:00 177.8 cm [facility] Body weight 2023-01-27 09:57:00 72.576 kg [facility] BMI 2023-01-27 09:57:00 22.96 kg/m2 [facility] Heart rate 2023-01-24 20:55:00 88 /min [facility] Oxygen saturation in Arterial blood by Pulse oximetry 2023-01-24 20:55:00 93 /min [facility] Respiratory rate 2023-01-24 20:52:00 22 /min [facility] Systolic blood pressure 2023-01-24 20:30:00 128 mm[Hg] [facility] Diastolic blood pressure 2023-01-24 20:30:00 69 mm[Hg] [facility] Body temperature 2023-01-24 17:24:00 36.67 Tia [facility] Body height 2023-01-24 17:24:00 177.8 cm [facility] Body weight 2023-01-24 17:24:00 72.576 kg [facility] BMI 2023-01-24 17:24:00 22.96 kg/m2 [facility] Systolic blood pressure 2023-01-24 01:00:00 129 mm[Hg] [facility] Diastolic blood pressure 2023-01-24 01:00:00 76 mm[Hg] [facility] Heart rate 2023-01-24 01:00:00 77 /min [facility] Respiratory rate 2023-01-24 01:00:00 18 /min [facility] Oxygen saturation in Arterial blood by Pulse oximetry 2023-01-24 01:00:00 99 /min [facility] Body temperature 2023-01-24 00:02:00 35.61 Tia warm blankets applied [facility] Body weight 2023-01-24 00:02:00 58.968 kg [facility] BMI 2023-01-24 00:02:00 18.65 kg/m2 [facility] Heart rate 2023-01-22 23:46:00 93 /min [facility] Respiratory rate 2023-01-22 23:46:00 20 /min [facility] Oxygen saturation in Arterial blood by Pulse oximetry 2023-01-22 23:46:00 100 /min [facility] Systolic blood pressure 2023-01-22 23:21:00 146 mm[Hg] [facility] Diastolic blood pressure 2023-01-22 23:21:00 93 mm[Hg] [facility] Body temperature 2023-01-22 23:21:00 36.72 Tia [facility] Body weight 2023-01-22 23:21:00 58.968 kg [facility] BMI 2023-01-22 23:21:00 18.65 kg/m2 [facility] Heart rate 2023-01-21 21:57:00 84 /min [facility] Respiratory rate 2023-01-21 21:57:00 18 /min [facility] Oxygen saturation in Arterial blood by Pulse oximetry 2023-01-21 21:57:00 97 /min [facility] Systolic blood pressure 2023-01-21 21:00:00 103 mm[Hg] [facility] Diastolic blood pressure 2023-01-21 21:00:00 61 mm[Hg] [facility] Body temperature 2023-01-21 19:24:00 36.56 Tia [facility] Body weight 2023-01-21 19:24:00 58.968 kg [facility] BMI 2023-01-21 19:24:00 18.65 kg/m2 [facility] Systolic blood pressure 2023-01-19 21:00:00 111 mm[Hg] [facility] Diastolic blood pressure 2023-01-19 21:00:00 64 mm[Hg] [facility] Heart rate 2023-01-19 21:00:00 85 /min [facility] Body temperature 2023-01-19 21:00:00 36.56 Tia [facility] Respiratory rate 2023-01-19 21:00:00 17 /min [facility] Oxygen saturation in Arterial blood by Pulse oximetry 2023-01-19 21:00:00 98 /min [facility] Body height 2023-01-19 06:22:00 177.8 cm [facility] Body weight 2023-01-19 06:22:00 58.968 kg [facility] BMI 2023-01-19 06:22:00 18.65 kg/m2 [facility] Systolic blood pressure 2023-01-17 12:05:00 116 mm[Hg] [facility] Diastolic blood pressure 2023-01-17 12:05:00 69 mm[Hg] [facility] Heart rate 2023-01-17 12:05:00 100 /min [facility] Respiratory rate 2023-01-17 12:05:00 24 /min [facility] Oxygen saturation in Arterial blood by Pulse oximetry 2023-01-17 12:05:00 93 /min [facility] Body temperature 2023-01-17 10:59:00 35.39 Tia [facility] Body height 2023-01-17 10:59:00 177.8 cm [facility] Body weight 2023-01-17 10:59:00 58.968 kg [facility] BMI 2023-01-17 10:59:00 18.65 kg/m2 [facility] Systolic blood pressure 2023-01-07 19:38:00 122 mm[Hg] [facility] Diastolic blood pressure 2023-01-07 19:38:00 86 mm[Hg] [facility] Heart rate 2023-01-07 19:38:00 110 /min [facility] Respiratory rate 2023-01-07 19:38:00 16 /min [facility] Body height 2023-01-07 19:38:00 177.8 cm [facility] Body weight 2023-01-07 19:38:00 59.966 kg [facility] BMI 2023-01-07 19:38:00 18.97 kg/m2 [facility] Systolic blood pressure 2022-12-26 18:00:00 118 mm[Hg] [facility] Diastolic blood pressure 2022-12-26 18:00:00 79 mm[Hg] [facility] Heart rate 2022-12-26 18:00:00 93 /min [facility] Respiratory rate 2022-12-26 18:00:00 20 /min [facility] Oxygen saturation in Arterial blood by Pulse oximetry 2022-12-26 18:00:00 95 /min [facility] Body temperature 2022-12-26 15:49:00 36.11 Tia [facility] Body height 2022-12-26 15:49:00 177.8 cm [facility] Body weight 2022-12-26 15:49:00 72.576 kg [facility] BMI 2022-12-26 15:49:00 22.96 kg/m2 [facility] Respiratory rate 2022-12-12 16:45:00 18 /min [facility] Oxygen saturation in Arterial blood by Pulse oximetry 2022-12-12 16:45:00 99 /min [facility] Systolic blood pressure 2022-12-12 16:11:00 135 mm[Hg] [facility] Diastolic blood pressure 2022-12-12 16:11:00 80 mm[Hg] [facility] Heart rate 2022-12-12 16:11:00 77 /min [facility] Body temperature 2022-12-12 16:11:00 35.89 Tia [facility] Body weight 2022-12-12 08:50:00 65 kg [facility] BMI 2022-12-12 08:50:00 20.56 kg/m2 [facility] Body height 2022-12-11 04:23:00 177.8 cm [facility] Heart rate 2022-12-04 12:33:00 95 /min [facility] Respiratory rate 2022-12-04 12:33:00 17 /min [facility] Oxygen saturation in Arterial blood by Pulse oximetry 2022-12-04 12:33:00 98 /min [facility] Systolic blood pressure 2022-12-04 12:20:00 125 mm[Hg] [facility] Diastolic blood pressure 2022-12-04 12:20:00 74 mm[Hg] [facility] Body temperature 2022-12-04 12:20:00 36.61 Tia [facility] Body height 2022-12-02 05:16:00 177.8 cm [facility] Body weight 2022-12-02 05:16:00 72.576 kg [facility] BMI 2022-12-02 05:16:00 22.96 kg/m2 [facility] Systolic blood pressure 2022-12-01 13:00:00 114 mm[Hg] [facility] Diastolic blood pressure 2022-12-01 13:00:00 78 mm[Hg] [facility] Heart rate 2022-12-01 13:00:00 88 /min [facility] Respiratory rate 2022-12-01 13:00:00 20 /min [facility] Oxygen saturation in Arterial blood by Pulse oximetry 2022-12-01 13:00:00 98 /min [facility] Body temperature 2022-12-01 10:13:00 36.67 Tia [facility] Body height 2022-12-01 10:13:00 177.8 cm [facility] Body weight 2022-12-01 10:13:00 72.576 kg [facility] BMI 2022-12-01 10:13:00 22.96 kg/m2 [facility] Systolic blood pressure 2022-11-28 17:00:00 154 mm[Hg] [facility] Diastolic blood pressure 2022-11-28 17:00:00 106 mm[Hg] [facility] Heart rate 2022-11-28 17:00:00 87 /min [facility] Respiratory rate 2022-11-28 17:00:00 23 /min [facility] Oxygen saturation in Arterial blood by Pulse oximetry 2022-11-28 17:00:00 96 /min [facility] Body temperature 2022-11-28 16:00:00 36.78 Tia [facility] Body weight 2022-11-27 12:00:00 67.132 kg [facility] BMI 2022-11-27 12:00:00 21.24 kg/m2 [facility] Body height 2022-11-27 08:39:00 177.8 cm [facility] Systolic blood pressure 2022-11-19 10:48:00 152 mm[Hg] [facility] Diastolic blood pressure 2022-11-19 10:48:00 88 mm[Hg] [facility] Heart rate 2022-11-19 10:48:00 92 /min [facility] Respiratory rate 2022-11-19 10:48:00 16 /min [facility] Oxygen saturation in Arterial blood by Pulse oximetry 2022-11-19 10:48:00 98 /min [facility] Body temperature 2022-11-19 08:20:00 36.22 Tia [facility] Body height 2022-11-19 08:20:00 177.8 cm [facility] Body weight 2022-11-19 08:20:00 67.132 kg [facility] BMI 2022-11-19 08:20:00 21.24 kg/m2 [facility] Systolic blood pressure 2022-11-19 02:18:57 152 mm[Hg] [facility] Diastolic blood pressure 2022-11-19 02:18:57 91 mm[Hg] [facility] Heart rate 2022-11-19 02:18:57 109 /min [facility] Respiratory rate 2022-11-19 02:18:57 22 /min [facility] Oxygen saturation in Arterial blood by Pulse oximetry 2022-11-19 02:18:57 95 /min [facility] Body temperature 2022-11-19 02:17:11 36.78 Tia [facility] Body height 2022-11-19 00:52:00 177.8 cm [facility] Body weight 2022-11-19 00:52:00 67.132 kg [facility] BMI 2022-11-19 00:52:00 21.24 kg/m2 [facility] Heart rate 2022-11-11 17:35:00 75 /min [facility] Respiratory rate 2022-11-11 17:35:00 18 /min [facility] Oxygen saturation in Arterial blood by Pulse oximetry 2022-11-11 17:35:00 95 /min [facility] Systolic blood pressure 2022-11-11 17:25:00 130 mm[Hg] [facility] Diastolic blood pressure 2022-11-11 17:25:00 71 mm[Hg] [facility] Body temperature 2022-11-11 17:25:00 35.94 Tia [facility] Body weight 2022-11-11 09:34:00 77.52 kg [facility] BMI 2022-11-11 09:34:00 24.52 kg/m2 [facility] Body height 2022-11-09 19:30:00 177.8 cm [facility] Systolic blood pressure 2020-12-29 15:24:00 96 mm[Hg] [facility] Diastolic blood pressure 2020-12-29 15:24:00 66 mm[Hg] [facility] Heart rate 2020-12-29 15:24:00 71 /min [facility] Body temperature 2020-12-29 15:24:00 36.33 Tia [facility] Body weight 2020-12-29 15:24:00 72.576 kg [facility] BMI 2020-12-29 15:24:00 22.96 kg/m2 [facility] Oxygen saturation in Arterial blood by Pulse oximetry 2020-12-29 15:24:00 95 /min [facility] Systolic blood pressure 2020-12-18 19:07:00 117 mm[Hg] [facility] Diastolic blood pressure 2020-12-18 19:07:00 77 mm[Hg] [facility] Heart rate 2020-12-18 19:07:00 77 /min [facility] Body temperature 2020-12-18 19:07:00 36.22 Tia [facility] Respiratory rate 2020-12-18 19:07:00 18 /min [facility] Body height 2020-12-18 19:07:00 177.8 cm [facility] Body weight 2020-12-18 19:07:00 73.211 kg [facility] BMI 2020-12-18 19:07:00 23.16 kg/m2 [facility] Systolic blood pressure 2020-12-12 18:00:00 109 mm[Hg] [facility] Diastolic blood pressure 2020-12-12 18:00:00 74 mm[Hg] [facility] Heart rate 2020-12-12 18:00:00 78 /min [facility] Respiratory rate 2020-12-12 18:00:00 20 /min [facility] Oxygen saturation in Arterial blood by Pulse oximetry 2020-12-12 18:00:00 96 /min [facility] Body temperature 2020-12-12 16:33:00 37.28 Tia [facility] Body height 2020-12-12 16:33:00 177.8 cm [facility] Body weight 2020-12-12 16:33:00 70.308 kg [facility] BMI 2020-12-12 16:33:00 22.24 kg/m2 [facility] Systolic blood pressure 2020-12-08 18:55:00 125 mm[Hg] [facility] Diastolic blood pressure 2020-12-08 18:55:00 82 mm[Hg] [facility] Heart rate 2020-12-08 18:55:00 75 /min [facility] Body temperature 2020-12-08 18:55:00 36.56 Tia [facility] Respiratory rate 2020-12-08 18:55:00 16 /min [facility] Body height 2020-12-08 18:55:00 177.8 cm [facility] Body weight 2020-12-08 18:55:00 73.12 kg [facility] BMI 2020-12-08 18:55:00 23.13 kg/m2 [facility] Systolic blood pressure 2019-05-04 04:21:00 127 mm[Hg] [facility] Diastolic blood pressure 2019-05-04 04:21:00 86 mm[Hg] [facility] Heart rate 2019-05-04 04:21:00 99 /min [facility] Respiratory rate 2019-05-04 04:21:00 26 /min [facility] Body height 2019-05-04 04:21:00 177.8 cm [facility] Body weight 2019-05-04 04:21:00 72.576 kg [facility] BMI 2019-05-04 04:21:00 22.96 kg/m2 [facility] Oxygen saturation in Arterial blood by Pulse oximetry 2019-05-04 04:21:00 99 /min [facility] Systolic blood pressure 2019-05-04 04:21:00 127 mm[Hg] [facility] Diastolic blood pressure 2019-05-04 04:21:00 86 mm[Hg] [facility] Heart rate 2019-05-04 04:21:00 99 /min [facility] Respiratory rate 2019-05-04 04:21:00 26 /min [facility] Body height 2019-05-04 04:21:00 177.8 cm [facility] Body weight 2019-05-04 04:21:00 72.576 kg [facility] BMI 2019-05-04 04:21:00 22.96 kg/m2 [facility] Oxygen saturation in Arterial blood by Pulse oximetry 2019-05-04 04:21:00 99 /min [facility] Procedures Procedure Date / Time Performed Performing Clinician Source MEDICATION CORRESPONDENCE 2023-07-08 05:01:00 Do ctor Unassigned, Whitaker [facility] [id number] 2023-03-15 00:00:00 LISA [facility] CONSENT/REFUSAL FOR DIAGNOSIS AND TREATMENT 2023-03-01 19:49:30 Doctor Unassigned, Whitaker [facility] TRANSTHORACIC ECHO (TTE) COMPLETE W/ CONTRAST 2023-02-16 13:56:56 Dedrick Toth [facility] TROPONIN I 2023-02-16 11:32:00 Dedrick Toth Uni [facility] COMP. METABOLIC PANEL ([id number]) 2023-02-16 11:32:00 Dedrick Toth [facility] CBC WITH DIFF 2023-02-16 11:32:00 Dedrick Toth Un [facility] N-TERMINAL PRO-BNP 2023-02-16 11:32:00 Dedrick Toth [facility] URINALYSIS 2023-02-15 21:18:00 Francisca Bryant [facility] HB ECG ROUTINE & RHYTHM STRIP 2023-02-15 20:15:35 Francisca Bryant [facility] XR CHEST 1 VW 2023-02-15 20:14:30 Francisca Bryant [facility] AC PANEL 21 + LACTIC ACID 2023-02-15 20:02:00 Francisca Bryant [facility] MAGNESIUM 2023-02-15 20:01:00 Francisca Bryant [facility] TROPONIN I 2023-02-15 20:01:00 Francisca Bryant [facility] COMP. METABOLIC PANEL ([id number]) 2023-02-15 20:01:00 Francisca Bryant [facility] CBC WITH DIFF 2023-02-15 20:01:00 Francisca Bryant [facility] ASSIGNMENT OF BENEFITS 2023-02-07 19:52:07 Docto r Unassigned, Whitaker [facility] CONSENT/REFUSAL FOR DIAGNOSIS AND TREATMENT 2023-02-07 19:51:03 Doctor Unassigned, Whitaker [facility] CONSENT/REFUSAL FOR DIAGNOSIS AND TREATMENT 2023-02-04 19:51:56 Doctor Unassigned, Whitaker [facility] TROPONIN I 2023-01-31 20:21:00 Rachael Flowers [facility] COMP. METABOLIC PANEL ([id number]) 2023-01-31 20:21:00 Rachael Flowers [facility] ETHANOL 2023-01-31 20:21:00 Rachael Flowers [facility] CBC WITH DIFF 2023-01-31 20:21:00 Rachael Flowers [facility] N-TERMINAL PRO-BNP 2023-01-31 20:21:00 Fernando Flowers [facility] CONSENT/REFUSAL FOR DIAGNOSIS AND TREATMENT 2023-01-31 18:39:05 Doctor Unassigned, Whitaker [facility] CONSENT/REFUSAL FOR DIAGNOSIS AND TREATMENT 2023-01-31 15:54:08 Doctor Unassigned, Whitaker [facility] CONSENT/REFUSAL FOR DIAGNOSIS AND TREATMENT 2023-01-31 14:29:18 Doctor Unassigned, Whitaker [facility] ACUTE CARE VENOUS BLOOD GAS 2023-01-27 10:45:00 Bessie Oswald [facility] TROPONIN I 2023-01-27 10:16:[address] [facility] BASIC METABOLIC PANEL (NA, K, CL, CO2, GLUCOSE, BUN, CREATININE, CA) 2023-01-27 10:16:00 Bessie Oswald [facility] CBC WITH DIFF 2023-01-27 10:16:00 Bessie Oswald [facility] N-TERMINAL PRO-BNP 2023-01-27 10:16:00 Bessie Oswald [facility] URINALYSIS 2023-01-24 20:23:00 Stephanie Almonte [facility] CT HEAD WO CONTRAST 2023-01-24 19:38:00 Stephanie Almonte [facility] AC ABG + LACTIC ACID 2023-01-24 18:37:00 Stephanie Almonte [facility] AMMONIA, PLASMA 2023-01-24 18:19:00 Stephanie Almonte [facility] RAPID STREP SCREEN FOR GROUP A 2023-01-24 18:19:00 Stephanie Almonte [facility] COVID-19 (ID NOW RAPID TESTING) 2023-01-24 18:19:00 Stephanie Almonte [facility] TROPONIN I 2023-01-24 17:52:00 Stephanie Almonte [facility] COMP. METABOLIC PANEL ([id number]) 2023-01-24 17:52:00 Stephanie Almonte [facility] ETHANOL 2023-01-24 17:52:00 Stephanie Almonte [facility] CBC WITH DIFF 2023-01-24 17:52:00 Stephanie Almonte [facility] N-TERMINAL PRO-BNP 2023-01-24 17:52:00 Stephanie Almonte [facility] COMP. METABOLIC PANEL ([id number]) 2023-01-21 20:58:00 Louis Hong [facility] TROPONIN I 2023-01-21 20:05:00 Louis Hong [facility] CBC WITH DIFF 2023-01-21 20:05:00 Louis Hong [facility] N-TERMINAL PRO-BNP 2023-01-21 20:05:00 Louis Hong [facility] AC PANEL 21 + LACTIC ACID 2023-01-19 08:31:00 Ramesh Hackett [facility] D-DIMER 2023-01-19 08:17:00 [facility] BASIC METABOLIC PANEL (NA, K, CL, CO2, GLUCOSE, BUN, CREATININE, CA) 2023-01-19 08:15:00 Iza Varma [facility] CBC WITH DIFF 2023-01-19 08:15:00 Iza Varma [facility] N-TERMINAL PRO-BNP 2023-01-19 08:15:00 Jaymie Hacketthosh [facility] EKG-12 LEAD 2023-01-17 12:23:30 [facility] 2023-01-17 11:25:05 [facility] 2023-01-17 11:04:00 Marisol Devlin [facility] COMP. METABOLIC PANEL ([id number]) 2023-01-17 11:04:00 Marisol Devlin [facility] CBC WITH DIFF 2023-01-17 11:04:00 Marisol Devlin [facility] N-TERMINAL PRO-BNP 2023-01-17 11:04:00 Marisol Devlin [facility] COMP. METABOLIC PANEL ([id number]) 2022-12-26 17:23:00 Iza Varma [facility] XR CHEST 1 VW 2022-12-26 16:39:21 [facility] URINE DRUG (IMMUNOASSAY) - COMPREHENSIVE DRUG SCREEN 2022-12-26 16:29:00 Iza Varma [facility] URINALYSIS 2022-12-26 16:29:[address] [facility] CBC WITH DIFF 2022-12-26 16:28:00 [facility] MAGNESIUM 2022-12-12 08:55:00 Travis Zeng [facility] BASIC METABOLIC PANEL (NA, K, CL, CO2, GLUCOSE, BUN, CREATININE, CA) 2022-12-12 08:55:00 Karri [facility] LIPID PANEL ([id number])(TOTAL CHOLESTEROL, TRIGLYCERIDES, HDL) 2022-12-12 08:55:00 Karri [facility] N-TERMINAL PRO-BNP 2022-12-12 08:55:00 [facility] MAGNESIUM 2022-12-11 08:30:00 Dedrick Toth [facility] OSMOLALITY, SERUM OR PLASMA 2022-12-11 08:30:00 Dedrick Toth [facility] FREE T4 2022-12-11 08:30:00 Dedrick Toth [facility] BASIC METABOLIC PANEL (NA, K, CL, CO2, GLUCOSE, BUN, CREATININE, CA) 2022-12-11 08:30:00 Dedrick Toth [facility] CBC WITH DIFF 2022-12-11 08:30:00 [facility] 2022-12-11 08:30:00 Dedrick Toth [facility] OSMOLALITY URINE 2022-12-11 03:24:00 Dedrick Toth [facility] SODIUM, URINE RANDOM 2022-12-11 03:24:00 Gunnar Toth [facility] URINALYSIS 2022-12-11 01:15:00 Louis Hong [facility] HB ECG ROUTINE & RHYTHM STRIP 2022-12-11 00:38:04 Louis Hong [facility] CT HEAD WO CONTRAST 2022-12-11 00:32:23 Kameron Hong [facility] XR CHEST 1 VW 2022-12-11 00:29:20 Louis Hong [facility] TROPONIN I 2022-12-11 00:08:00 Louis Hong [facility] COMP. METABOLIC PANEL ([id number]) 2022-12-11 00:08:00 Louis Hong [facility] ETHANOL 2022-12-11 00:08:00 Louis Hong [facility] CBC WITH DIFF 2022-12-11 00:08:00 Louis Hong [facility] N-TERMINAL PRO-BNP 2022-12-11 00:08:00 Louis Hong [facility] LACTIC ACID WHOLE BLOOD 2022-12-11 00:03:00 Angelita Hong [facility] AUTHORIZATION FOR RELEASE OF PHI 2022-12-09 05:01:00 Doctor Unassigned, Whitaker [facility] BASIC METABOLIC PANEL (NA, K, CL, CO2, GLUCOSE, BUN, CREATININE, CA) 2022-12-04 10:43:00 Ben [facility] CBC WITH DIFF 2022-12-04 10:43:00 Clive Contreras [facility] OSMOLALITY URINE 2022-12-03 17:05:00 Lisseth De Santiago [facility] SODIUM, URINE RANDOM 2022-12-03 17:05:00 Haley De Santiago [facility] MAGNESIUM 2022-12-03 10:20:00 Clive Contreras [facility] BASIC METABOLIC PANEL (NA, K, CL, CO2, GLUCOSE, BUN, CREATININE, CA) 2022-12-03 10:20:00 Ben Clive [facility] CBC WITH DIFF 2022-12-03 10:20:00 Clive Contreras [facility] BASIC METABOLIC PANEL (NA, K, CL, CO2, GLUCOSE, BUN, CREATININE, CA) 2022-12-02 05:27:00 Carlo Maki [facility] CONSENT/REFUSAL FOR DIAGNOSIS AND TREATMENT 2022-12-02 05:08:30 Doctor Unassigned, Whitaker [facility] HOSPITAL ADMISSION 2022-12-02 05:01:00 Doctor Un assigned, Whitaker [facility] COVID-19 (ID NOW RAPID TESTING) 2022-12-01 13:01:00 Ernesto Piper [facility] XR CHEST 1 VW 2022-12-01 12:40:25 Marisol Devlin [facility] EKG-12 LEAD 2022-12-01 12:17:26 Marisol Devlin [facility] ACUTE CARE ARTERIAL BLOOD GAS 2022-12-01 12:06:00 [facility] 2022-12-01 11:51:00 [facility] BASIC METABOLIC PANEL (NA, K, CL, CO2, GLUCOSE, BUN, CREATININE, CA) 2022-12-01 11:51:00 Marisol Devlin [facility] CBC WITH DIFF 2022-12-01 11:51:00 [facility] BASIC METABOLIC PANEL (NA, K, CL, CO2, GLUCOSE, BUN, CREATININE, CA) 2022-11-28 16:51:00 Leila Chapa [facility] URIC ACID 2022-11-28 08:14:00 Reyna [facility] THYROID STIMULATING HORMONE 2022-11-28 08:14:00 Reyna [facility] BASIC METABOLIC PANEL (NA, K, CL, CO2, GLUCOSE, BUN, CREATININE, CA) 2022-11-28 08:14:00 Leila Chapa [facility] CBC WITH DIFF 2022-11-28 08:14:[address] [facility] BASIC METABOLIC PANEL (NA, K, CL, CO2, GLUCOSE, BUN, CREATININE, CA) 2022-11-28 04:16:00 María Diaz [facility] BASIC METABOLIC PANEL (NA, K, CL, CO2, GLUCOSE, BUN, CREATININE, CA) 2022-11-28 00:33:00 Leila Chapa [facility] BASIC METABOLIC PANEL (NA, K, CL, CO2, GLUCOSE, BUN, CREATININE, CA) 2022-11-27 19:55:00 [facility] MRSA / MSSA SCREEN BY ERIKA NARANJO 2022-11-27 09:21:00 María Diaz [facility] OSMOLALITY, SERUM OR PLASMA 2022-11-27 09:10:00 María Diaz [facility] OSMOLALITY URINE 2022-11-27 09:04:00 María Diaz [facility] BASIC METABOLIC PANEL (NA, K, CL, CO2, GLUCOSE, BUN, CREATININE, CA) 2022-11-27 09:04:00 María Diaz [facility] URINE DRUG (IMMUNOASSAY) - COMPREHENSIVE DRUG SCREEN 2022-11-27 09:04:00 María Diaz [facility] URINALYSIS 2022-11-27 09:04:00 María Diaz [facility] CREATININE, URINE RANDOM 2022-11-27 09:04:00 [facility] SODIUM, URINE RANDOM 2022-11-27 09:04:00 María Diaz [facility] XR CHEST 1 VW 2022-11-27 06:15:54 [facility] MAGNESIUM 2022-11-27 05:33:00 María Diaz [facility] TROPONIN I 2022-11-27 05:33:[address] [facility] COMP. METABOLIC PANEL ([id number]) 2022-11-27 05:33:00 Bessie Oswald [facility] ETHANOL 2022-11-27 05:33:[address] [facility] CBC WITH DIFF 2022-11-27 05:33:00 [facility] GLYCOSYLATED HEMOGLOBIN (A1C) 2022-11-27 05:33:00 Leila Chapa [facility] N-TERMINAL PRO-BNP 2022-11-27 05:33:00 Bessie Oswald [facility] HB ECG ROUTINE & RHYTHM STRIP 2022-11-27 05:31:54 Bessie Oswald [facility] COMP. METABOLIC PANEL ([id number]) 2022-11-19 08:44:00 Iza Varma [facility] CBC WITH DIFF 2022-11-19 08:44:00 [facility] N-TERMINAL PRO-BNP 2022-11-19 08:44:00 Iza Varma [facility] BASIC METABOLIC PANEL (NA, K, CL, CO2, GLUCOSE, BUN, CREATININE, CA) 2022-11-11 10:52:00 Iza Eden [facility] CBC WITH DIFF 2022-11-11 10:52:00 Iza Eden [facility] BASIC METABOLIC PANEL (NA, K, CL, CO2, GLUCOSE, BUN, CREATININE, CA) 2022-11-11 02:16:00 Guanako [facility] BASIC METABOLIC PANEL (NA, K, CL, CO2, GLUCOSE, BUN, CREATININE, CA) 2022-11-10 22:45:[facility] (NA, K, CL, CO2, GLUCOSE, BUN, CREATININE, CA) 2022-11-10 17:27:00 Guanako [facility] BASIC METABOLIC PANEL (NA, K, CL, CO2, GLUCOSE, BUN, CREATININE, CA) 2022-11-10 11:49:00 Guanako [facility] MAGNESIUM 2022-11-10 07:14:00 Travis Zeng [facility] BASIC METABOLIC PANEL (NA, K, CL, CO2, GLUCOSE, BUN, CREATININE, CA) 2022-11-10 07:14:00 Guanako [facility] CBC WITH DIFF 2022-11-10 07:14:00 Guanako [facility] XR CHEST 1 VW 2022-11-09 07:53:00 Marisol Devlin [facility] LIPASE 2022-11-09 07:53:00 Marisol Devlin [facility] TROPONIN I 2022-11-09 07:53:00 Marisol Devlin [facility] COMP. METABOLIC PANEL ([id number]) 2022-11-09 07:53:00 Marisol Devlin [facility] CBC WITH DIFF 2022-11-09 07:53:00 Marisol Devlin Uni [facility] N-TERMINAL PRO-BNP 2022-11-09 07:53:00 Marisol Devlin [facility] ACUTE CARE ARTERIAL BLOOD GAS 2022-11-09 07:50:00 Marisol Devlin [facility] HB ECG ROUTINE & RHYTHM STRIP 2022-11-09 07:39:47 Marisol Devlin [facility] ASSIGNMENT OF BENEFITS 2021-05-20 19:26:54 Duran eduardo Unassigned, Whitaker [facility] POCT URINALYSIS AUTO 2020-12-18 19:04:00 Zeus Turner [facility] CT ABDOMEN PELVIS W CONTRAST 2020-12-12 17:25:03 Francisca Bryant [facility] BASIC METABOLIC PANEL (NA, K, CL, CO2, GLUCOSE, BUN, CREATININE, CA) 2020-12-12 16:47:00 Francisca Bryant [facility] CBC WITH DIFF 2020-12-12 16:47:00 [facility] 2020-12-12 16:47:00 [facility] NOTICE OF PRIVACY PRACTICES 2020-12-12 16:28:57 Doctor Unassigned, Whitaker [facility] CONSENT/REFUSAL FOR DIAGNOSIS AND TREATMENT 2020-12-12 16:28:23 Doctor Unassigned, Whitaker [facility] POCT URINALYSIS AUTO 2020-12-08 18:56:00 Jeanette Mcdaniel [facility] CONSENT/REFUSAL FOR DIAGNOSIS AND TREATMENT 2020-12-08 18:26:17 Doctor Unassigned, Whitaker [facility] ASSIGNMENT OF BENEFITS 2020-12-08 18:25:58 Duran eduardo Unassigned, Whitaker [facility] AUTHORIZATION FOR RELEASE OF PHI 2020-02-20 05:01:00 Doctor Unassigned, Whitaker [facility] NOTICE OF PRIVACY PRACTICES 2019-05-04 04:10:29 Doctor Unassigned, Whitaker [facility] CONSENT/REFUSAL FOR DIAGNOSIS AND TREATMENT 2019-05-04 04:10:09 Doctor Unassigned, Whitaker [facility] Encounters Start Date/Time End Date/Time Encounter Type Admission Type Attending [facility] Care Facility Care Department Encounter ID Source 2021-07-19 08:46:33 Emergency [facility] [id number] [facility] 2023-07-21 10:00:00 2023-07-21 10:00:00 Outpatient R NOMI MARY SHIWAN [facility] [id number] [facility] 2023-07-15 00:00:00 2023-07-15 00:00:00 Case Management Mathew [facility] [id number] [facility] 2023-07-08 00:00:00 2023-07-08 00:00:00 Telephone Mathew Psychiatrictim [facility] [id number] [facility] 2023-07-08 00:00:00 2023-07-08 00:00:00 Orders Only Doctor Unassigned, Whitaker [facility] [id number] [facility] 2023-04-22 00:00:00 2023-04-22 00:00:00 Outpatient R NOMI MARY SHIWAN [facility] [id number] [facility] 2023-04-19 10:00:00 2023-04-19 10:53:24 Outpatient R NOMI MARY SHIDCTim [facility] [id number] [facility] 2023-04-19 10:00:00 2023-04-19 10:53:24 Office Visit Nomi Mary [facility] [id number] [facility] 2023-04-19 00:00:00 2023-04-19 00:00:00 Patient Outreach Marika Monge GARY GIORDANO [id number] [facility] 2023-03-15 07:16:00 2023-03-19 14:47:00 Inpatient EM Rudy Xiao HCAWU INTE.02 [id number] 22 [facility] 2023-03-01 16:30:00 2023-03-01 17:00:00 [facility] [id number] [id number] [id number] [facility] 2023-03-01 16:30:00 2023-03-01 16:30:00 Outpatient [facility] [id number] [facility] 2023-03-01 00:00:00 2023-03-01 00:00:00 Orders Only Doctor Unassigned, [facility] 1.840.114 350.1.13.10 4.2.7.2.686 [id number] [id number] [facility] 2023-03-01 00:00:00 2023-03-01 00:00:00 RefMily Colunga [facility] 1..114 350.1.13.10 4.2.7.2.686 [id number] [facility] 2023-02-21 00:00:00 2023-02-21 00:00:00 Transition of Care Taylor Frye 1.20.114 350.1.13.10 4.2.7.2.686 [id number] [facility] 2023-02-15 14:41:00 2023-02-18 16:11:00 Inpatient X KARRI TRAVIS [facility] [id number] [facility] 2023-02-15 14:41:00 2023-02-18 16:11:00 Hospital Encounter Iza Varma Sandra J [place], Jelani [facility] 1.2.840.114 350.1.13.10 4.2.7.2.686 [id number] [id number] [facility] 2023-02-07 14:30:00 2023-02-07 16:01:00 Emergency X JULIA PRADIP [facility] [id number] [facility] 2023-02-07 14:30:00 2023-02-07 16:01:00 Emergency Radha Austinmj F [facility] 1.2.840.114 350.1.13.10 4.2.7.2.686 [id number] 084 [id number] [facility] 2023-02-07 10:20:00 2023-02-07 10:20:00 Outpatient CARL ALDRIDGE CHRISTINE [facility] [id number] [facility] 2023-02-05 14:53:00 2023-02-05 16:10:00 Emergency X HERMINIA CHO [facility] [id number] [facility] 2023-02-05 14:53:00 2023-02-05 16:10:00 Emergency Herminia Cho [facility] 1.2.840.114 350.1.13.10 4.2.7.2.686 [id number] 084 [id number] [facility] 2023-02-04 15:26:00 2023-02-04 16:25:00 Emergency X FRANCISCA BRYANT [facility] [id number] [facility] 2023-02-04 15:26:00 2023-02-04 16:25:00 Emergency Francisca Bryant [facility] 1.2.840.114 350.1.13.10 4.2.7.2.686 [id number] 084 [id number] [facility] 2023-02-03 17:46:00 2023-02-03 18:47:00 Emergency X LOUIS HONG [facility] [id number] [facility] 2023-02-03 17:46:00 2023-02-03 18:47:00 Emergency X LOUIS HONG [facility] [id number] [facility] 2023-02-03 17:46:00 2023-02-03 18:47:00 Emergency Singer Louis [facility] 1.2.840.114 350.1.13.10 4.2.7.2.686 [id number] 084 [id number] [facility] 2023-02-03 12:43:00 2023-02-03 15:04:00 Emergency Bessie Oswald [facility] 1.2.840.114 350.1.13.10 4.2.7.2.686 [id number] 084 [id number] [facility] 2023-02-02 16:49:00 2023-02-02 18:10:00 Emergency X LOUIS HONG [facility] [id number] [facility] 2023-02-02 16:49:00 2023-02-02 18:10:00 Emergency Louis Hong [facility] 1.2.840.114 350.1.13.10 4.2.7.2.686 [id number] 084 [id number] [facility] 2023-01-31 13:55:00 2023-01-31 16:50:00 Emergency X SHARRI, RACHAEL [facility] [id number] [facility] 2023-01-31 13:55:00 2023-01-31 16:50:00 Emergency X RACHAEL FLOWERS [facility] [id number] [facility] 2023-01-31 13:55:00 2023-01-31 16:50:00 Emergency Rachael Flowers [facility] 1.2.840.114 350.1.13.10 4.2.7.2.686 [id number] 084 [id number] [facility] 2023-01-31 11:11:00 2023-01-31 12:12:00 Emergency X LEOBARDO SLOAN [facility] [id number] [facility] 2023-01-31 11:11:00 2023-01-31 12:12:00 Emergency Leobardo Sloan [facility] 1.2.840.114 350.1.13.10 4.2.7.2.686 [id number] 084 [id number] [facility] 2023-01-31 09:51:00 2023-01-31 10:16:00 Emergency [facility] 1.2.840.114 350.1.13.10 4.2.7.2.686 [id number] 084 [id number] [facility] 2023-01-29 08:08:00 2023-01-29 10:00:00 Emergency X HERMINIA CHO [facility] [id number] [facility] 2023-01-29 08:08:00 2023-01-29 10:00:00 Emergency Herminia Cho [facility] 1.2.840.114 350.1.13.10 4.2.7.2.686 [id number] 084 [id number] [facility] 2023-01-27 04:50:00 2023-01-27 07:03:00 Emergency X BESSIE OSWALD [facility] [id number] [facility] 2023-01-27 04:50:00 2023-01-27 07:03:00 Emergency Bessie Oswald [facility] 1.2.840.114 350.1.13.10 4.2.7.2.686 [id number] 084 [id number] [facility] 2023-01-27 00:00:00 2023-01-27 00:00:00 [facility] 1.2.840.114 350.1.13.10 4.2.7.2.686 [id number] 085 [id number] [facility] 2023-01-24 12:28:00 2023-01-24 16:16:00 Emergency X STEPHANIE ALMONTE [facility] [id number] [facility] 2023-01-24 12:28:00 2023-01-24 16:16:00 Emergency TymaxStephanie apple Meek [facility] 1.2.840.114 350.1.13.10 4.2.7.2.686 [id number] 084 [id number] [facility] 2023-01-23 19:02:00 2023-01-23 20:36:00 Emergency X IZA VARMA [facility] [id number] [facility] 2023-01-23 19:02:00 2023-01-23 20:36:00 Emergency zIa Varma [facility] 1.2.840.114 350.1.13.10 4.2.7.2.686 [id number] 084 [id number] [facility] 2023-01-22 18:24:00 2023-01-22 19:55:00 Emergency X IZA VARMA [facility] [id number] [facility] 2023-01-22 18:24:00 2023-01-22 19:55:00 Emergency Iza Varma S [facility] 1.2.840.114 350.1.13.10 4.2.7.2.686 [id number] 084 [id number] [facility] 2023-01-21 14:20:00 2023-01-21 18:14:00 Emergency X LOUIS HONG [facility] [id number] [facility] 2023-01-21 14:20:00 2023-01-21 18:14:00 Emergency Louis Hong [facility] 1.2.840.114 350.1.13.10 4.2.7.2.686 [id number] 084 [id number] [facility] 2023-01-20 00:00:00 2023-01-20 00:00:00 Transition of Care Uday Taylor GIORDANO 1.2.840.114 350.1.13.10 4.2.7.2.686 [id number] [facility] 2023-01-19 01:15:00 2023-01-19 19:40:00 Hospital Encounter [facility] , Kathia Varma, Iza Hackett, María Escobar [facility] 1.2.840.114 350.1.13.10 4.2.7.2.686 [id number] 080 [id number] [facility] 2023-01-17 05:57:00 2023-01-17 07:37:00 Emergency X MARISOL DEVLIN [facility] [id number] [facility] 2023-01-17 05:57:00 2023-01-17 07:37:00 Emergency Marisol Devlin [facility] 1.2.840.114 350.1.13.10 4.2.7.2.686 [id number] 084 [id number] [facility] 2023-01-17 05:57:00 2023-01-17 07:37:00 Emergency X MARISOL DEVLIN [facility] [id number] [facility] 2023-01-10 00:00:00 2023-01-10 00:00:00 Letter (Out) Oh[facility] 1.2.840.114 350.1.13.10 4.2.7.2.686 [id number] 092 [id number] [facility] 2023-01-07 14:30:00 2023-01-07 15:25:56 [facility] [id number] [facility] 2023-01-07 14:30:00 2023-01-07 15:25:56 [facility] 1.2.840.114 350.1.13.10 4.2.7.2.686 [id number] [id number] [facility] 2022-12-26 10:50:00 2022-12-26 14:12:00 Emergency X IZA VARMA [facility] [id number] [facility] 2022-12-26 10:50:00 2022-12-26 14:12:00 Emergency Iza Varma S [facility] 1.2.840.114 350.1.13.10 4.2.7.2.686 [id number] 084 [id number] [facility] 2022-12-14 11:30:00 2022-12-14 11:30:00 Outpatient R NOMI MARY SHIWAN [facility] [id number] [facility] 2022-12-14 00:00:00 2022-12-14 00:00:00 Transition of Care Taylor Frye 1.2.840.114 350.1.13.10 4.2.7.2.686 [id number] [facility] 2022-12-10 18:49:00 2022-12-12 14:35:00 Outpatient X TRAVIS ZENG [facility] [id number] [facility] 2022-12-10 18:49:00 2022-12-12 14:35:00 Hospital Encounter Louis Hong, Travis Varner [facility] 1.2.840.114 350.1.13.10 4.2.7.2.686 [id number] 081 [id number] [facility] 2022-12-10 00:00:00 2022-12-10 00:00:00 Case Management Nomi Mary [facility] 1.2.840.114 350.1.13.10 4.2.7.2.686 [id number] [id number] [facility] 2022-12-10 00:00:00 2022-12-10 00:00:00 Transition of Care Cecy Caro 1.2.840.114 350.1.13.10 4.2.7.2.686 [id number] [facility] 2022-12-09 00:00:00 2022-12-09 00:00:00 Orders Only Doctor Unassigned, [facility] 1.2.840.114 350.1.13.10 4.2.7.2.686 [id number] [id number] [facility] 2022-12-06 00:00:00 2022-12-06 00:00:00 Transition of Care Taylor Frye 1.2.840.114 350.1.13.10 4.2.7.2.686 [id number] [facility] 2022-12-02 00:13:00 2022-12-04 12:30:00 Hospital Encounter Carlo Maki Uma Phalak, Clive [facility] 1.2.840.114 350.1.13.10 4.2.7.2.686 [id number] [facility] 2022-12-01 05:32:00 2022-12-01 09:08:00 Emergency ERNESTO SHANE CHARLES [facility] [id number] [facility] 2022-12-01 05:32:00 2022-12-01 09:08:00 Emergency Marisol Devlin Charles Davis, Elizabeth [facility] 1.2.840.114 350.1.13.10 4.2.7.2.686 [id number] 084 [id number] [facility] 2022-12-01 05:32:00 2022-12-01 09:08:00 Emergency ERNESTO SHANE CHARLES [facility] [id number] [facility] 2022-11-26 22:55:00 2022-11-28 13:50:00 Outpatient X DHARMESH [facility] [id number] [facility] 2022-11-26 22:55:00 2022-11-28 13:50:00 Hospital Encounter Bessie Oswald David Abdullah Leila [facility] 1.2.840.114 350.1.13.10 4.2.7.2.686 [id number] [facility] 2022-11-19 02:17:00 2022-11-19 05:12:00 Emergency X IZA VARMA [facility] [id number] [facility] 2022-11-19 02:17:00 2022-11-19 05:12:00 Emergency Iza Varma [facility] 1.2.840.114 350.1.13.10 4.2.7.2.686 [id number] 084 [id number] [facility] 2022-11-18 18:52:00 2022-11-18 20:29:00 Emergency X FRANCISCA BRYANT [facility] [id number] [facility] 2022-11-18 18:52:00 2022-11-18 20:29:00 Emergency Francisca Bryant [facility] 1.2.840.114 350.1.13.10 4.2.7.2.686 [id number] [id number] [facility] 2022-11-17 00:00:00 2022-11-17 00:00:00 Telephone Nomi Mary [facility] 1.2.840.114 350.1.13.10 4.2.7.2.686 [id number] [id number] [facility] 2022-11-12 00:00:00 2022-11-12 00:00:00 Transition of Care Taylor Frye PLAJACOBY 1.2.840.114 350.1.13.10 4.2.7.2.686 [id number] [facility] 2022-11-09 01:32:00 2022-11-11 13:35:00 Inpatient X TRAVIS ZENG [facility] [id number] [facility] 2022-11-09 01:32:00 2022-11-11 13:35:00 Hospital Encounter Marisol Devlin Jelani [facility] 1.2.840.114 350.1.13.10 4.2.7.2.686 [id number] 081 [id number] [facility] 2021-05-22 00:00:00 2021-05-22 00:00:00 [facility] 1.2.840.114 350.1.13.10 4.2.7.2.686 [id number] [facility] 2021-05-20 14:28:38 2021-05-20 14:43:38 Buttonholer Visit Pob, Adc Lab [facility] 1.2.840.114 350.1.13.10 4.2.7.2.686 [id number] [facility] 2021-05-20 14:30:00 2021-05-20 14:30:00 Outpatient R GOKUL TURNER [facility] [id number] [facility] 2021-05-20 00:00:00 2021-05-20 00:00:00 Orders Only Doctor Unassigned, [facility] 1.2.840.114 350.1.13.10 4.2.7.2.686 [id number] [id number] [facility] 2021-05-20 00:00:00 2021-05-20 00:00:00 Telephone Gokul Turner [facility] Professio nal Building 1.2.840.114 350.1.13.10 4.2.7.2.686 [id number] [facility] 2020-12-29 10:12:45 2020-12-29 11:07:51 Office [facility] 1.2.840.114 350.1.13.10 4.2.7.2.686 [id number] [facility] 2020-12-29 10:15:00 2020-12-29 10:15:00 Outpatient R GOKUL TURNER [facility] [id number] [facility] 2020-12-18 13:36:17 2020-12-18 14:58:35 Office Visit Gokul Turner Rm, Adc Surg Spec Procedure [facility] Professio nal Building 1.2.840.114 350.1.13.10 4.2.7.2.686 [id number] [facility] 2020-12-18 14:00:00 2020-12-18 14:00:00 Outpatient R GOKUL TURNER [facility] [id number] [facility] 2020-12-16 00:00:00 2020-12-16 00:00:00 Outpatient R YUNG MCDANIELELA [facility] [id number] [facility] 2020-12-16 00:00:00 2020-12-16 00:00:00 Telephone Jeanette Mcdaniel [facility] 1.2.840.114 350.1.13.10 4.2.7.2.686 [id number] [facility] 2020-12-12 11:36:00 2020-12-12 13:42:00 Emergency Francisca Bryant [facility] 1.2.840.114 350.1.13.10 4.2.7.2.686 [id number] 084 [id number] [facility] 2020-12-12 00:00:00 2020-12-12 00:00:00 Telephone Jeanette Mcdaniel [facility] 1..840.114 350.1.13.10 4.2.7.2.686 [id number] [facility] 2020-12-08 13:28:10 2020-12-08 14:09:14 Office Visit Jeanette Mcdaniel [facility] 1.2.840.114 350.1.13.10 4.2.7.2.686 [id number] [facility] 2020-12-08 13:30:00 2020-12-08 13:30:00 Outpatient R VIOLETAYUNGJEANETTE [facility] [id number] [facility] 2020-12-08 00:00:00 2020-12-08 00:00:00 Orders Only Doctor Unassigned, [facility] 1.2.840.114 350.1.13.10 4.2.7.2.686 [id number] [id number] [facility] 2020-12-07 00:00:00 2020-12-07 00:00:00 Nurse Triage Herminia Perez [facility] 1.2840.114 350.1.13.10 4.2.7.2.686 [id number] [facility] 2020-06-19 13:30:00 2020-06-19 13:30:00 Outpatient Tyrell Mckeon [facility] [id number] 21 [facility] 2020-02-20 00:00:00 2020-02-20 00:00:00 Orders Only Doctor Unassigned, [facility] 1.2.840.114 350.1.13.10 4.2.7.2.686 [id number] [id number] 2020-02-20 00:00:00 2020-02-20 00:00:00 Orders Only Doctor Unassigned, [facility] 1.2840.114 350.1.13.10 4.2.7.2.686 [id number] [facility] 2019-08-28 08:25:33 2019-08-28 11:54:00 Emergency X HERMINIA CHO [facility] [id number] [facility] 2019-08-24 01:43:17 2019-08-24 03:52:00 Emergency X LOUIS HONG [facility] [id number] [facility] 2019-05-03 23:28:18 2019-05-04 00:27:00 Emergency Ramesh Encinas [facility] 1.2840.114 350.1.13.10 4.2.7.2.686 [id number] 2019-05-03 23:28:18 2019-05-04 00:27:00 Emergency Ramesh Encinas [facility] 1.2840.114 350.1.13.10 4.2.7.2.686 [id number] 084 [id number] [facility] 2019-05-03 00:00:00 2019-05-03 00:00:00 Orders Only Doctor Unassigned, [facility] 1.2840.114 350.1.13.10 4.2.7.2.686 [id number] [id number] [facility] 2019-05-03 00:00:00 2019-05-03 00:00:00 Orders Only Doctor Unassigned, [facility] 1.2.840.114 350.1.13.10 4.2.7.2.686 [id number] [id number] Results Test Description Test Time Test Comments Results Result Co mments Source GLUCOSE BEDSIDE [id number] 07:35:00* Test Item Value Reference Range Interpretation Comme nts GLUCOSE BEDSIDE TESTING (paris t code = GLUBED) 170 MG/DL 60-99 H VITAMIN [id number] 15:12:00* Test Item Value Reference Range Interpretation Comme [facility] VITAMIN B12 (test code = VITB12) 738 pg/mL 239-931 N FOLIC [id number] 15:12:00* Test Item Value Reference Range Interpretation Comme [facility] FOLIC ACID (test code = FOLR) 4.9 ng/mL REFERENCE VALUES : NORMAL: 2.76 - >20 ng/ML DEFICIENT: 1.04 - 2.79 ng/ML COMPREHENSIVE METABOLIC [id number] 11:38:00* Test Item Value Reference Range Interpretation [...] and aplastic anemia) with specific assayson the Vitros 5600 of which Total Protein [...] ALKP) 51 UNITS/L 38-126 N CBC W/AUTO [id number] 11:24:00* Test Item Value Reference Range Interpretation [...] NRBC#) 0.00 K/mm3 0.0-0.1 N ARTERIAL BLOOD [id number] 17:25:00* Test Item Value Reference Range Interpretation [...] to and readback by DAYANA VELAZQUEZ by DANIEL at 03/15/2023 4:56:13 PM ABG DELIVERY (test [...] FIO2 (test code = COHBGFFIO2) 36 % [id number] 12:29:00* Test Item Value Reference Range Interpretation Comme nts PHOSPHOROUS (test code = PHOS) 3.5 MG/DL 2.5-4.5 N ADD ON TEST? [id number] 12:29:00* Test Item Value Reference Range Interpretation Comme nts MAGNESIUM (test code = MAG) 1.8 MG/DL 1.6-2.3 N ADD ON TEST? YesARTERIAL BLOOD [id number] 12:26:00* Test Item Value Reference Range Interpretation [...] METHGB) 0.2 % 0.4-1.5 L VENOUS BLOOD [id number] 11:46:00* Test Item Value Reference Range Interpretation [...] METHGB) 0.0 % 0.4-1.5 L BASIC METABOLIC [id number] 07:06:00* Test Item Value Reference Range Interpretation [...] 7.7 MG/DL 8.4-10.2 L NT PRO-BRAIN NATRIURETIC [id number] 07:06:00* Test Item Value Reference Range Interpretation [...] well as other causes* of NT-proBNP elevation. [id number] 07:06:00* Test Item Value Reference Range Interpretation Comme nts TROPONIN-I (test code = TROPI) < 0.012 NG/ML 0.012-0.033 L - XR CHEST [id number] 06:59:00 [facility] : 1960 Sex: M Patient Name: THIERRY MONGE Unit No: [id number] EXAMS: CPT CODE: [id number] XR CHEST 1V 07790 EXAMINATION: - XR CHEST 1V HISTORY: Chest [...] t.ANGELAR.[email or web address] Orig Print D/T: S: 03/15/2023 (0702) [facility] NAME: THIERRY MONGE [address] PHYS: [place] [address] : 1960 AGE: 62 SEX: M LOC: Z.ERS PHONE #: [phone] EXAM DATE: 03/15/2023 STATUS: REG ER FAX #: [phone] RADIOLOGY NO: PAGE 1 Signed ReportCBC W/O [id number] 06:42:00* Test Item Value Reference Range Interpretation [...] = NRBC#) 0.00 K/mm3 0.0-0.1 N TROPONIN [id number] 21:12:01* Test Item Value Reference Range Interpretation Comme nts TROPONIN I (test code = 7615902580) <=0.034 OMAYRA (test code = OMAYRA) Reference [...] of biotin. Lab Interpretation (test code = 71288-6) [facility]42801)2023-02-15 21:00:57* Test Item Value Reference Range Interpretation Comme nts NA (test code = 0920141099) 133 mmol/L 135-145 L K (test code = 3021928616) 4.5 mmol/L 3.5-5.0 CL (test code = 6655267533) 90 mmol/L 98-108 L CO2 TOTAL (test code = 7037101381) 40 mmol/L 23-31 H AGAP (test code = 0424524736) 3 2-16 BUN (test code = 7941377317) 25 mg/dL 7-23 H GLUCOSE (test code = 1468393635) 107 mg/dL 70-110 CREATININE (test code = 4942763370) 0.88 mg/dL 0.60-1.25 TOTAL BILI (test code = 0009960821) 1.6 mg/dL 0.1-1.1 H CALCIUM (test code = 8396350820) 8.9 mg/dL 8.6-10.6 T PROTEIN (test code = 1565599825) 6.1 g/dL 6.3-8.2 L ALBUMIN (test code = 0788897172) 3.7 g/dL 3.5-5.0 ALK PHOS (test code = 7109202606) 56 U/L 34-122 ALTv (test code = 1742-6) 14 U/L 5-50 AST(SGOT) (test code = 7428748570) 12 U/L 13-40 L eGFR (test code = 1580582012) 87.2 mL/min/1.73m2 OMAYRA (test code = OMAYRA) [...] imaging tests). Lab Interpretation (test code = 83484-9) [facility]normal [facility] 21:00:57* Test Item Value Reference Range Interpretation Comme nts MAGNESIUM (test code = 3387849312) 2.0 mg/dL 1.7-2.4 Lab Interpretation (test cod e = 30346-1) Normal [facility] [id number] 20:53:39* Test Item Value Reference Range Interpretation Comme nts WBC (test code = 6690-2) 9.03 See_Comment [Automated [employer]] The system which generated this result transmitted reference range: 4.20 - 10.70 10*3/?L. The reference range was not used to interpret this result as normal/abnormal. RBC (test code = 789-8) 4.50 See_Comment [Automated [employer]] The system which generated this result transmitted [...] 33.0 g/dL 31.2-35.0 RDW-SD (test code = 34091-0) 50.1 fL 38.5-51.6 RDW-CV (test code = 788-0) 13.6 % 12.1-15.4 PLT (test code = 777-3) 223 See_Comment [Automated [employer]] The system which generated this result transmitted reference range: 150 - 328 10*3/?L. The reference range was not used to interpret this result as normal/abnormal. MPV (test code = 18063-7) 12.1 fL 9.8-13.0 NRBC/100 WBC (test code = 9415744535) 0.0 See_Comment [Automated me ssage] The system which generated this result transmitted reference range: 0.0 - 10.0 /100 WBCs. The reference range was not used to interpret this result as normal/abnormal. NRBC x10^3 (test code = 7920357288) See_Comment [Automated messa ge] The system which generated this result transmitted reference range: 10*3/?L. The reference range was not used to interpret this result as normal/abnormal. GRAN MAT (NEUT) % (test code = 770-8) 72.8 % IMM GRAN % (test code = 4445793524) 0.90 % LYMPH % (test code = 736-9) 17.7 % MONO % (test code = 5905-5) 7.4 % EOS % (test code = 713-8) 0.9 % BASO % (test code = 706-2) 0.3 % GRAN MAT x10^3(ANC) (test code = 3002973503) 6.57 10*3/uL 1.99-6.95 IMM GRAN x10^3 (test code = 7376747166) 0.08 10*3/uL 0.00-0.06 H LYMPH x10^3 (test code = 731-0) 1.60 10*3/uL 1.09-3.23 MONO x10^3 (test code = 742-7) 0.67 10*3/uL 0.36-1.02 EOS x10^3 (test code = 711-2) 0.08 10*3/uL 0.06-0.53 BASO x10^3 (test code = 704-7) 0.03 10*3/uL 0.01-0.09 Lab Interpretation (test code = 25236-9) [facility] [id number] 20:11:20* Test Item Value Reference Range Interpretation Comme nts PH (test code = 5474045471) 7.33 7.32-7.42 PCO2 ERVIN (test code = 0632559637) 75 See_Comment H [Automated messa ge] The system which generated this result transmitted reference range: 41 - 51 mmHg. The reference range was not used to interpret this result as normal/abnormal. PO2 ERVIN (test code = 3468763726) 20 See_Comment L [Automated messa ge] The system which generated this result transmitted reference range: 25 - 40 mmHg. The reference range was not used to interpret this result as normal/abnormal. HCO3 ERVIN (test code = 1942727224) 39 See_Comment H [Automated messa ge] The system which generated this result transmitted reference range: 24 - 28 mEq/L. The reference range was not used to interpret this result as normal/abnormal. AC VBE(BEAKER) (test code = 6709249941) 9.1 mEq/L THB ERVIN (test code = 1697099278) 15.9 g/dL 13.5-18.0 %O2HB ERVIN (test code = 8934916838) 30.0 % 52.0-63.0 L %COHB ERVIN (test code = 1824764490) 4.1 % 0.0-1.5 H %METHB ERVIN (test code = 9579688815) 0.3 % 0.4-1.5 L VOL%O2 ERVIN (test code = 7270443851) 6.7 % 6.0-12.0 NA (test code = 7787571815) 137 mmol/L 135-145 K+ (test code = 0165265723) 4.5 mmol/L 3.5-5.0 AC CA IONZ (test code = 0121649262) 4.60 mg/dL 4.50-5.30 GLUCOSE (test code = 5204711758) 113 mg/dL 70-110 H LACTIC ACID (test code = 6614268841) 1.65 mmol/L 0.50-2.20 Lab Interpretation (test code = 46746-4) [facility] [id number] 21:20:05* Test Item Value Reference Range Interpretation Comme nts TROPONIN I (test code = 7996510517) 0.005 ng/mL <=0.034 OMAYRA (test code = [...] of biotin. Lab Interpretation (test code = 57387-5) Normal [facility] [id number] 21:17:24* Test Item Value Reference Range Interpretation Comme nts NT-proBNP (test code = 0931043859) 712 pg/mL <=125 H OMAYRA (test code = OMAYRA) Biotin has been reported to cause a negative bias, interpret results relative to patient's use of biotin. Lab Interpretation (test code = 07221-8) Abnormal [facility] CenterETHANOL2023-[facility] 21:13:47 ALCOHOL<10mg/dL01/31/2023 4:13 PM [facility]<10 Ivsuspzk14-978 Toxic>100 Depression of [employer]ANT>400 Fatalities ReportedGuadalupe [facility] Medical CenterCOMP. METABOLIC PANEL (83759)2023-01-31 21:10:01* Test Item Value Reference Range Interpretation Comme nts NA (test code = 4197499212) 142 mmol/L 135-145 K (test code = 2032279253) 4.7 mmol/L 3.5-5.0 CL (test code = 2041331327) 99 mmol/L 98-108 CO2 TOTAL (test code = 9685898275) 37 mmol/L 23-31 H AGAP (test code = 3012776164) 6 2-16 BUN (test code = 3057606869) 30 mg/dL 7-23 H GLUCOSE (test code = 2888603586) 100 mg/dL 70-110 CREATININE (test code = 9011674209) 0.61 mg/dL 0.60-1.25 TOTAL BILI (test code = 2444045013) 0.6 mg/dL 0.1-1.1 CALCIUM (test code = 1030921320) 8.8 mg/dL 8.6-10.6 T PROTEIN (test code = 0343916288) 5.9 g/dL 6.3-8.2 L ALBUMIN (test code = 8755437536) 3.5 g/dL 3.5-5.0 ALK PHOS (test code = 7839323976) 42 U/L 34-122 ALTv (test code = 1742-6) 16 U/L 5-50 AST(SGOT) (test code = 4621469376) 12 U/L 13-40 L eGFR (test code = 1200203211) 133.1 mL/min/1.73m2 OMAYRA (test code = OMAYRA) [...] imaging tests). Lab Interpretation (test code = 78354-9) Abnormal [facility] WITH [id number] 20:59:58* Test Item Value Reference Range Interpretation [...] g/dL 31.2-35.0 L RDW-SD (test code = 68379-0) 61.6 fL 38.5-51.6 H RDW-CV (test code = 788-0) 16.2 % 12.1-15.4 H PLT (test code = 777-3) 250 See_Comment [Automated message] The system which generated this result transmitted reference range: 150 - 328 10*3/?L. The reference range was not used to interpret this result as normal/abnormal. MPV (test code = 72351-2) 10.5 fL 9.8-13.0 NRBC/100 WBC (test code = 7320940311) 0.0 See_Comment [Automated message] The system which generated this result transmitted reference range: 0.0 - 10.0 /100 WBCs. The reference range was not used to interpret this result as normal/abnormal. NRBC x10^3 (test code = 1874732622) See_Comment [Automated message] The system which generated this result transmitted reference range: 10*3/?L. The reference range was not used to interpret this result as normal/abnormal. GRAN MAT (NEUT) % (test code = 770-8) 90.9 % IMM GRAN % (test code = 5654930780) 1.20 % LYMPH % (test code = 736-9) 3.9 % MONO % (test code = 5905-5) 3.8 % EOS % (test code = 713-8) 0.0 % BASO % (test code = 706-2) 0.2 % GRAN MAT x10^3(ANC) (test code = 6605604141) 11.83 10*3/uL 1.99-6.95 H IMM GRAN x10^3 (test code = 2109755886) 0.16 10*3/uL 0.00-0.06 H LYMPH x10^3 (test code = 731-0) 0.51 10*3/uL 1.09-3.23 L MONO x10^3 (test code = 742-7) 0.49 10*3/uL 0.36-1.02 EOS x10^3 (test code = 711-2) 0.06-0.53 L BASO x10^3 (test code = 704-7) 0.03 10*3/uL 0.01-0.09 Lab Interpretation (test code = 41650-9) [facility] [id number] 11:16:36* Test Item Value Reference Range Interpretation Comme nts TROPONIN I (test code = 9388887891) 0.002 ng/mL <=0.034 OMAYRA (test code = [...] of biotin. Lab Interpretation (test code = 72258-8) Normal [facility] CenterN-[facility]MINAL [id number] 11:13:18* Test Item Value Reference Range Interpretation Comme nts NT-proBNP (test code = 5130937881) 112 pg/mL <=125 OMAYRA (test code = OMAYRA) Biotin has been reported to cause a negative bias, interpret results relative to patient's use of biotin. Lab Interpretation (test code = 62863-6) Normal [facility] METABOLIC PANEL (NA, K, CL, CO2, GLUCOSE, BUN, CREATININE, CA)2023-01-27 11:04:56* Test Item Value Reference Range Interpretation Comme nts NA (test code = 7864456281) 136 mmol/L 135-145 K (test code = 4096501229) 4.1 mmol/L 3.5-5.0 CL (test code = 6842154691) 96 mmol/L 98-108 L CO2 TOTAL (test code = 9814567949) 34 mmol/L 23-31 H AGAP (test code = 1971238162) 6 2-16 BUN (test code = 3118422665) 22 mg/dL 7-23 GLUCOSE (test code = 7844943943) 117 mg/dL 70-110 H CREATININE (test code = 7962309785) 0.55 mg/dL 0.60-1.25 L CALCIUM (test code = 5870540639) 8.4 mg/dL 8.6-10.6 L eGFR (test code = 3046093695) 150.0 mL/min/1.73m2 OMAYRA (test code = OMAYRA) [...] imaging tests). Lab Interpretation (test code = 02774-7) Abnormal [facility] WITH [id number] 10:38:33* Test Item Value Reference Range Interpretation Comme nts WBC (test code = 6690-2) 9.56 See_Comment [Automated [employer]] The system which generated this result transmitted reference range: 4.20 - 10.70 10*3/?L. The reference range was not used to interpret this result as normal/abnormal. RBC (test code = 789-8) 4.31 See_Comment [Automated [employer]] The system which generated this result [...] 31.8 g/dL 31.2-35.0 RDW-SD (test code = 37318-2) 56.7 fL 38.5-51.6 H RDW-CV (test code = 788-0) 15.3 % 12.1-15.4 PLT (test code = 777-3) 220 See_Comment [Automated [employer]] The system which generated this result transmitted reference range: 150 - 328 10*3/?L. The reference range was not used to interpret this result as normal/abnormal. MPV (test code = 25295-2) 10.6 fL 9.8-13.0 NRBC/100 WBC (test code = 5318344295) 0.0 See_Comment [[employer] ssage] The system which generated this result transmitted reference range: 0.0 - 10.0 /100 WBCs. The reference range was not used to interpret this result as normal/abnormal. NRBC x10^3 (test code = 2675827881) See_Comment [Automated messa ge] The system which generated this result transmitted reference range: 10*3/?L. The reference range was not used to interpret this result as normal/abnormal. GRAN MAT (NEUT) % (test code = 770-8) 60.0 % IMM GRAN % (test code = 2621701745) 0.70 % LYMPH % (test code = 736-9) 26.5 % MONO % (test code = 5905-5) 11.4 % EOS % (test code = 713-8) 0.9 % BASO % (test code = 706-2) 0.5 % GRAN MAT x10^3(ANC) (test code = 0019602868) 5.73 10*3/uL 1.99-6.95 IMM GRAN x10^3 (test code = 7491875439) 0.07 10*3/uL 0.00-0.06 H LYMPH x10^3 (test code = 731-0) 2.53 10*3/uL 1.09-3.23 MONO x10^3 (test code = 742-7) 1.09 10*3/uL 0.36-1.02 H EOS x10^3 (test code = 711-2) 0.09 10*3/uL 0.06-0.53 BASO x10^3 (test code = 704-7) 0.05 10*3/uL 0.01-0.09 Lab Interpretation (test code = 10597-0) Abnormal [facility] CenterAMMONIA, [id number] 18:51:59* Test Item Value Reference Range Interpretation Comme nts AMMONIA (test code = 7193794176) 9-33 L Lab Interpretation (test cod e = 98662-0) Abnormal [facility] CenterAC ABG + LACTIC [id number] 18:40:53* Test Item Value Reference Range Interpretation Comme nts PH (test code = 2) 7.43 7.35-7.45 PCO2 (test code = 0413262783) 53 See_Comment H [Automated messa ge] The system which generated this result transmitted reference range: 35 - 45 mmHg. The reference range was not used to interpret this result as normal/abnormal. PO2 (test code = 6620118742) 49 See_Comment L [Automated messa ge] The system which generated this result transmitted reference range: 80 - 100 mmHg. The reference range was not used to interpret this result as normal/abnormal. HCO3 (test code = 2996854838) 34 See_Comment H [Automated messa ge] The system which generated this result transmitted reference range: 22 - 26 mEq/L. The reference range was not used to interpret this result as normal/abnormal. BE (test code = 7060167571) 7.8 See_Comment H [Automated messa ge] The system which generated this result transmitted reference range: -3.0 - 3.0 mEq/L. The reference range was not used to interpret this result as normal/abnormal. LACTIC ACID (test code = 9149990402) 0.92 mmol/L 0.50-2.20 Lab Interpretation (test code = 56367-0) Abnormal [facility] CenterTroponin [id number] 18:28:26* Test Item Value Reference Range Interpretation Comme nts TROPONIN I (test code = 9830150845) 0.003 ng/mL <=0.034 OMAYRA (test code = [...] of biotin. Lab Interpretation (test code = 20220-4) Normal [facility] CenterN-[facility]MINAL [id number] 18:25:29* Test Item Value Reference Range Interpretation Comme nts NT-proBNP (test code = 1391551010) 376 pg/mL <=125 H OMAYRA (test code = OMAYRA) Biotin has been reported to cause a negative bias, interpret results relative to patient's use of biotin. Lab Interpretation (test code = 48591-2) Abnormal [facility] CenterCOM Metabolic Panel (28161)2023-01-24 18:24:03* Test Item Value Reference Range Interpretation Comme nts NA (test code = 2081737612) 135 mmol/L 135-145 K (test code = 2386515272) 4.0 mmol/L 3.5-5.0 CL (test code = 4721673402) 90 mmol/L 98-108 L CO2 TOTAL (test code = 7404617451) 43 mmol/L 23-31 H AGAP (test code = 1660095012) 2 2-16 BUN (test code = 5574656304) 12 mg/dL 7-23 GLUCOSE (test code = 6911414503) 92 mg/dL 70-110 CREATININE (test code = 4861393693) 0.58 mg/dL 0.60-1.25 L TOTAL BILI (test code = 5061190945) 1.3 mg/dL 0.1-1.1 H CALCIUM (test code = 5496025936) 8.6 mg/dL 8.6-10.6 T PROTEIN (test code = 6751793143) 6.0 g/dL 6.3-8.2 L ALBUMIN (test code = 3018192798) 3.6 g/dL 3.5-5.0 ALK PHOS (test code = 3496873299) 52 U/L 34-122 ALTv (test code = 1742-6) 17 U/L 5-50 AST(SGOT) (test code = 5791233030) 10 U/L 13-40 L eGFR (test code = 8470159765) 141.1 mL/min/1.73m2 OMAYRA (test code = OMAYRA) [...] imaging tests). 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 The reference range was not used to interpret this result as normal/abnormal. RBC (test code = 789-8) 4.46 See_Comment [[employer]] The system which generated this result transmitted [...] g/dL 31.2-35.0 L RDW-SD (test code = 58718-1) 59.7 fL 38.5-51.6 H RDW-CV (test code = 788-0) 15.8 % 12.1-15.4 H PLT (test code = 777-3) 239 See_Comment [Automated messa ge] The system which generated this result transmitted reference range: 150 - 328 10*3/?L. The reference range was not used to interpret this result as normal/abnormal. MPV (test code = 92818-8) 10.5 fL 9.8-13.0 NRBC/100 WBC (test code = 6348834386) 0.0 See_Comment [[employer] ssage] The system which generated this result transmitted reference range: 0.0 - 10.0 /100 WBCs. The reference range was not used to interpret this result as normal/abnormal. NRBC x10^3 (test code = 3018821943) See_Comment [Automated messa ge] The system which generated this result transmitted reference range: 10*3/?L. The reference range was not used to interpret this result as normal/abnormal. GRAN MAT (NEUT) % (test code = 770-8) 64.5 % IMM GRAN % (test code = 9542436512) 0.40 % LYMPH % (test code = 736-9) 23.1 % MONO % (test code = 5905-5) 9.8 % EOS % (test code = 713-8) 1.8 % BASO % (test code = 706-2) 0.4 % GRAN MAT x10^3(ANC) (test code = 3629883615) 5.06 10*3/uL 1.99-6.95 IMM GRAN x10^3 (test code = 2177189137) 0.03 10*3/uL 0.00-0.06 LYMPH x10^3 (test code = 731-0) 1.81 10*3/uL 1.09-3.23 MONO x10^3 (test code = 742-7) 0.77 10*3/uL 0.36-1.02 EOS x10^3 (test code = 711-2) 0.14 10*3/uL 0.06-0.53 BASO x10^3 (test code = 704-7) 0.03 10*3/uL 0.01-0.09 Lab Interpretation (test code = 49424-8) Abnormal [facility] CenterCOM. METABOLIC PANEL (09154)2023-01-21 21:33:50* Test Item Value Reference Range Interpretation Comme nts NA (test code = 0493094764) 136 mmol/L 135-145 K (test code = 5804272074) 4.3 mmol/L 3.5-5.0 CL (test code = 1775447793) 95 mmol/L 98-108 L CO2 TOTAL (test code = 7495253441) 38 mmol/L 23-31 H AGAP (test code = 8267639744) 3 2-16 BUN (test code = 0327157604) 17 mg/dL 7-23 GLUCOSE (test code = 3499362222) 102 mg/dL 70-110 CREATININE (test code = 9413159647) 0.62 mg/dL 0.60-1.25 TOTAL BILI (test code = 9954794584) 0.8 mg/dL 0.1-1.1 CALCIUM (test code = 2629060418) 7.8 mg/dL 8.6-10.6 L T PROTEIN (test code = 8536188809) 4.9 g/dL 6.3-8.2 L ALBUMIN (test code = 0263778742) 3.0 g/dL 3.5-5.0 L ALK PHOS (test code = 2878861856) 45 U/L 34-122 ALTv (test code = 1742-6) 13 U/L 5-50 AST(SGOT) (test code = 9030494550) 11 U/L 13-40 L eGFR (test code = 5486098739) 130.6 mL/min/1.73m2 OMAYRA (test code = OMAYRA) [...] imaging tests). Lab Interpretation (test code = 65150-7) Abnormal [facility] CenterTROPONIN [id number] 21:11:45* Test Item Value Reference Range Interpretation Comme nts TROPONIN I (test code = 8182473303) 0.019 ng/mL <=0.034 OMAYRA (test code = [...] of biotin. Lab Interpretation (test code = 12697-0) Normal [facility] CenterN-TERMINAL ZWM-[id number] 21:08:47* Test Item Value Reference Range Interpretation Comme nts NT-proBNP (test code = 9601750262) 266 pg/mL <=125 H Hemolyzed specimen OMAYRA (test code = OMAYRA) Biotin has been reported to cause a negative bias, interpret results relative to patient's use of biotin. Lab Interpretation (test code = 40740-2) Abnormal [facility] WITH [id number] 20:40:24* Test Item Value Reference Range Interpretation Comme nts WBC (test code = 6690-2) 6.78 See_Comment [Automated messa ge] The system which [...] g/dL 31.2-35.0 L RDW-SD (test code = 47720-5) 60.4 fL 38.5-51.6 H RDW-CV (test code = 788-0) 16.2 % 12.1-15.4 H PLT (test code = 777-3) 215 See_Comment [Automated messa ge] The system which generated this result transmitted reference range: 150 - 328 10*3/?L. The reference range was not used to interpret this result as normal/abnormal. MPV (test code = 59621-2) 10.9 fL 9.8-13.0 NRBC/100 WBC (test code = 0810848568) 0.0 See_Comment [[employer] ssage] The system which generated this result transmitted reference range: 0.0 - 10.0 /100 WBCs. The reference range was not used to interpret this result as normal/abnormal. NRBC x10^3 (test code = 2196589783) See_Comment [Automated messa ge] The system which generated this result transmitted reference range: 10*3/?L. The reference range was not used to interpret this result as normal/abnormal. GRAN MAT (NEUT) % (test code = 770-8) 75.4 % IMM GRAN % (test code = 9488501042) 0.40 % LYMPH % (test code = 736-9) 15.3 % MONO % (test code = 5905-5) 7.7 % EOS % (test code = 713-8) 0.9 % BASO % (test code = 706-2) 0.3 % GRAN MAT x10^3(ANC) (test code = 7302655478) 5.11 10*3/uL 1.99-6.95 IMM GRAN x10^3 (test code = 0492125333) 0.03 10*3/uL 0.00-0.06 LYMPH x10^3 (test code = 731-0) 1.04 10*3/uL 1.09-3.23 L MONO x10^3 (test code = 742-7) 0.52 10*3/uL 0.36-1.02 EOS x10^3 (test code = 711-2) 0.06 10*3/uL 0.06-0.53 BASO x10^3 (test code = 704-7) 0.01-0.09 Lab Interpretation (test code = 07647-1) Abnormal [facility] CenterN-[facility]inal Wnk-KWO5022-33-03 08:49:53* Test Item Value Reference Range Interpretation Comme nts NT-proBNP (test code = 4693757406) 158 pg/mL <=125 H OMAYRA (test code = OMAYRA) Biotin has been reported to cause a negative bias, interpret results relative to patient's use of biotin. Lab Interpretation (test code = 24513-7) Abnormal [facility] CenterD-Kvyyr7165-61-63 08:44:10* Test Item Value Reference Range Interpretation Comments D-DIMER (test code = 9139772971) See_Comment [Automated message] The system which generated [...] a diagnosis. Lab Interpretation (test code = 56909-9) Normal [facility] METABOLIC PANEL (NA, K, CL, CO2, GLUCOSE, BUN, CREATININE, CA)2023-01-19 08:41:13* Test Item Value Reference Range Interpretation Comme nts NA (test code = 7201263112) 134 mmol/L 135-145 L K (test code = 1437578468) 5.3 mmol/L 3.5-5.0 H CL (test code = 7541454127) 91 mmol/L 98-108 L CO2 TOTAL (test code = 1036782727) 40 mmol/L 23-31 H AGAP (test code = 4080494876) 3 2-16 BUN (test code = 9956888676) 14 mg/dL 7-23 GLUCOSE (test code = 0422225416) 125 mg/dL 70-110 H CREATININE (test code = 5123554997) 0.64 mg/dL 0.60-1.25 CALCIUM (test code = 0493456755) 8.5 mg/dL 8.6-10.6 L eGFR (test code = 3432990757) 125.9 mL/min/1.73m2 OMAYRA (test code = OMAYRA) [...] imaging tests). Lab Interpretation (test code = 09334-4) Abnormal [facility] WITH [id number] 08:27:33* Test Item Value Reference Range Interpretation Comme nts WBC (test code = 6690-2) 10.04 See_Comment [[employer]] The system which generated this result transmitted reference range: 4.20 - 10.70 10*3/?L. The reference range was not used to interpret this result as normal/abnormal. RBC (test code = 789-8) 4.35 See_Comment [[employer]] The system which generated this result transmitted [...] 31.2 g/dL 31.2-35.0 RDW-SD (test code = 19631-3) 58.4 fL 38.5-51.6 H RDW-CV (test code = 788-0) 15.9 % 12.1-15.4 H PLT (test code = 777-3) 211 See_Comment [Automated messa ge] The system which generated this result transmitted reference range: 150 - 328 10*3/?L. The reference range was not used to interpret this result as normal/abnormal. MPV (test code = 53163-9) 10.2 fL 9.8-13.0 NRBC/100 WBC (test code = 4382316277) 0.0 See_Comment [Automated me ssage] The system which generated this result transmitted reference range: 0.0 - 10.0 /100 WBCs. The reference range was not used to interpret this result as normal/abnormal. NRBC x10^3 (test code = 5854821591) See_Comment [Automated messa ge] The system which generated this result transmitted reference range: 10*3/?L. The reference range was not used to interpret this result as normal/abnormal. GRAN MAT (NEUT) % (test code = 770-8) 81.2 % IMM GRAN % (test code = 2581185086) 0.50 % LYMPH % (test code = 736-9) 10.1 % MONO % (test code = 5905-5) 7.5 % EOS % (test code = 713-8) 0.5 % BASO % (test code = 706-2) 0.2 % GRAN MAT x10^3(ANC) (test code = 2900020175) 8.16 10*3/uL 1.99-6.95 H IMM GRAN x10^3 (test code = 3388707016) 0.05 10*3/uL 0.00-0.06 LYMPH x10^3 (test code = 731-0) 1.01 10*3/uL 1.09-3.23 L MONO x10^3 (test code = 742-7) 0.75 10*3/uL 0.36-1.02 EOS x10^3 (test code = 711-2) 0.05 10*3/uL 0.06-0.53 L BASO x10^3 (test code = 704-7) 0.01-0.09 Lab Interpretation (test code = 50613-4) [facility]normal [facility] CenterTROP[facility] [id number] 12:09:33* Test Item Value Reference Range Interpretation Comme nts TROPONIN I (test code = 4666134845) 0.004 ng/mL <=0.034 OMAYRA (test code = [...] of biotin. Lab Interpretation (test code = 77769-7) Normal [facility] CenterN-[facility]MINAL OOZ-ATD9199-76-01 12:06:16* Test Item Value Reference Range Interpretation Comme nts NT-proBNP (test code = 6458159721) 135 pg/mL <=125 H OMAYRA (test code = OMAYRA) Biotin has been reported to cause a negative bias, interpret results relative to patient's use of biotin. Lab Interpretation (test code = 95432-0) Abnormal [facility]. Metabolic Panel (33112)2023-01-17 11:57:36* Test Item Value Reference Range Interpretation Comme nts NA (test code = 2442429321) 133 mmol/L 135-145 L K (test code = 7665805794) 5.0 mmol/L 3.5-5.0 CL (test code = 1905794691) 91 mmol/L 98-108 L CO2 TOTAL (test code = 2536615891) 33 mmol/L 23-31 H AGAP (test code = 0581056718) 9 2-16 BUN (test code = 7808597254) 10 mg/dL 7-23 GLUCOSE (test code = 2327023706) 104 mg/dL 70-110 CREATININE (test code = 7499827521) 0.63 mg/dL 0.60-1.25 TOTAL BILI (test code = 8777474769) 1.2 mg/dL 0.1-1.1 H CALCIUM (test code = 5069397998) 9.0 mg/dL 8.6-10.6 T PROTEIN (test code = 4520045204) 6.9 g/dL 6.3-8.2 ALBUMIN (test code = 9119623357) 4.4 g/dL 3.5-5.0 ALK PHOS (test code = 0106530334) 76 U/L 34-122 ALTv (test code = 1742-6) 13 U/L 5-50 AST(SGOT) (test code = 1225979182) 13 U/L 13-40 eGFR (test code = 7841365926) 128.2 mL/min/1.73m2 OMAYRA (test code = OMAYRA) [...] imaging tests). Lab Interpretation (test code = 92773-0) Abnormal [facility] with KDEA6401-68-98 11:30:52* Test Item Value Reference Range Interpretation Comme nts WBC (test code = 6690-2) 9.66 See_Comment [Automated messa ge] The system which generated this result transmitted reference range: 4.20 - 10.70 10*3/?L. The reference range was not used to interpret this result as normal/abnormal. RBC (test code = 789-8) 5.00 See_Comment [Automated messa ge] The system which [...] 31.2 g/dL 31.2-35.0 RDW-SD (test code = 66397-3) 56.6 fL 38.5-51.6 H RDW-CV (test code = 788-0) 15.4 % 12.1-15.4 PLT (test code = 777-3) 261 See_Comment [Automated messa ge] The system which generated this result transmitted reference range: 150 - 328 10*3/?L. The reference range was not used to interpret this result as normal/abnormal. MPV (test code = 52088-5) 10.4 fL 9.8-13.0 NRBC/100 WBC (test code = 3040000567) 0.0 See_Comment [[employer]] The system which generated this result transmitted reference range: 0.0 - 10.0 /100 WBCs. The reference range was not used to interpret this result as normal/abnormal. NRBC x10^3 (test code = 8909576035) See_Comment [Automated messa ge] The system which generated this result transmitted reference range: 10*3/?L. The reference range was not used to interpret this result as normal/abnormal. GRAN MAT (NEUT) % (test code = 770-8) 58.9 % IMM GRAN % (test code = 4359271491) 0.40 % LYMPH % (test code = 736-9) 28.6 % MONO % (test code = 5905-5) 10.5 % EOS % (test code = 713-8) 0.9 % BASO % (test code = 706-2) 0.7 % GRAN MAT x10^3(ANC) (test code = 6748853007) 5.69 10*3/uL 1.99-6.95 IMM GRAN x10^3 (test code = 3460108976) 0.04 10*3/uL 0.00-0.06 LYMPH x10^3 (test code = 731-0) 2.76 10*3/uL 1.09-3.23 MONO x10^3 (test code = 742-7) 1.01 10*3/uL 0.36-1.02 EOS x10^3 (test code = 711-2) 0.09 10*3/uL 0.06-0.53 BASO x10^3 (test code = 704-7) 0.07 10*3/uL 0.01-0.09 Lab Interpretation (test code = 97485-7) [id number] 10:20:57* Test Item Value Reference Range Interpretation Comme nts NT-proBNP (test code = 4923677301) 473 pg/mL <=125 H OMAYRA (test code = OMAYRA) Biotin has been reported to cause a negative bias, interpret results relative to patient's use of biotin. Lab Interpretation (test code = 02221-3) [facility]TOTAL CHOLESTEROL, TRIGLYCERIDES, HDL)2022-12-12 10:18:39* Test Item Value Reference Range Interpretation Comme nts CHOL (test code = 2865329340) 133 mg/dL 120-200 HDL (test code = 5299246774) 38 mg/dL >=40 L HDLC RATIO (test code = 0025085061) 3.5 <=5.0 TRIG (test code = 5391545402) 57 mg/dL 30-170 LDL CHOL (test code = 53802-3) 84 mg/dL <=160 VLDL (test code = 8608727536) 11 mg/dL 5-60 Lab Interpretation (test cod e = 93728-5) [facility]:18:19* Test Item Value Reference Range Interpretation Comme nts MAGNESIUM (test code = 7414628540) 2.0 mg/dL 1.7-2.4 Lab Interpretation (test cod e = 46948-8) Normal [facility] METABOLIC PANEL (NA, K, CL, CO2, GLUCOSE, BUN, CREATININE, CA)2022-12-12 10:18:14* Test Item Value Reference Range Interpretation Comme nts NA (test code = 0358896697) 130 mmol/L 135-145 L K (test code = 6292927960) 3.7 mmol/L 3.5-5.0 CL (test code = 5365025816) 89 mmol/L 98-108 L CO2 TOTAL (test code = 3619432675) 37 mmol/L 23-31 H AGAP (test code = 3177692014) 4 2-16 BUN (test code = 4547578342) 13 mg/dL 7-23 GLUCOSE (test code = 5405637403) 120 mg/dL 70-110 H CREATININE (test code = 1344188701) 0.56 mg/dL 0.60-1.25 L CALCIUM (test code = 6689988284) 8.3 mg/dL 8.6-10.6 L eGFR (test code = 3507343085) 146.9 mL/min/1.73m2 OMAYRA (test code = OMAYRA) [...] imaging tests). Lab Interpretation (test code = 04940-8) [facility]:54:58 ALCOHOL<10mg/dL12/10/2022 7:54 PM [facility]<10 Sglfiieq77-930 Toxic>100 Depression of [employer]ANT>400 Fatalities ReportedGu[facility] CenterTROPONIN [id number] 00:50:14* Test Item Value Reference Range Interpretation Comme nts TROPONIN I (test code = 1915525937) 0.006 ng/mL <=0.034 OMAYRA (test code = [...] of biotin. Lab Interpretation (test code = 07770-5) Normal [facility] QET-[id number] 00:47:12* Test Item Value Reference Range Interpretation Comme nts NT-proBNP (test code = 7543554131) 291 pg/mL <=125 H OMAYRA (test code = OMAYRA) Biotin has been reported to cause a negative bias, interpret results relative to patient's use of biotin. Lab Interpretation (test code = 27892-2) Abnormal [facility]. METABOLIC PANEL (35980)2022-12-11 00:41:12* Test Item Value Reference Range Interpretation Comme nts NA (test code = 0163198556) 126 mmol/L 135-145 L K (test code = 6205174441) 4.0 mmol/L 3.5-5.0 CL (test code = 2270589757) 82 mmol/L 98-108 L CO2 TOTAL (test code = 0499014848) 40 mmol/L 23-31 H AGAP (test code = 4424897474) 4 2-16 BUN (test code = 5294861865) 16 mg/dL 7-23 GLUCOSE (test code = 4877020738) 97 mg/dL 70-110 CREATININE (test code = 6362639128) 0.67 mg/dL 0.60-1.25 TOTAL BILI (test code = 9980040758) 0.8 mg/dL 0.1-1.1 CALCIUM (test code = 1466622785) 8.5 mg/dL 8.6-10.6 L T PROTEIN (test code = 3919124822) 5.9 g/dL 6.3-8.2 L ALBUMIN (test code = 1131118722) 3.5 g/dL 3.5-5.0 ALK PHOS (test code = 6729858938) 49 U/L 34-122 ALTv (test code = 1742-6) 18 U/L 5-50 AST(SGOT) (test code = 0182631898) 11 U/L 13-40 L eGFR (test code = 5176490928) 119.4 mL/min/1.73m2 OMAYRA (test code = OMAYRA) [...] imaging tests). Lab Interpretation (test code = 11586-6) Abnormal [facility] WITH [id number] 00:29:08* Test Item Value Reference Range Interpretation Comme nts WBC (test code = 6690-2) 10.15 See_Comment [Automated [employer]] The system which generated this result transmitted reference range: 4.20 - 10.70 10*3/?L. The reference range was not used to interpret this result as normal/abnormal. RBC (test code = 789-8) 4.52 See_Comment [Automated [employer]] The system which generated this result transmitted [...] 32.8 g/dL 31.2-35.0 RDW-SD (test code = 47925-5) 46.7 fL 38.5-51.6 RDW-CV (test code = 788-0) 13.6 % 12.1-15.4 PLT (test code = 777-3) 263 See_Comment [Automated [employer]] The system which generated this result transmitted reference range: 150 - 328 10*3/?L. The reference range was not used to interpret this result as normal/abnormal. MPV (test code = 24117-1) 9.7 fL 9.8-13.0 L NRBC/100 WBC (test code = 5182035335) 0.0 See_Comment [Automated [employer] ss[employer]] The system which generated this result transmitted reference range: 0.0 - 10.0 /100 WBCs. The reference range was not used to interpret this result as normal/abnormal. NRBC x10^3 (test code = 5965240844) See_Comment [Automated [employer]] The system which generated this result transmitted reference range: 10*3/?L. The reference range was not used to interpret this result as normal/abnormal. GRAN MAT (NEUT) % (test code = 770-8) 71.6 % IMM GRAN % (test code = 0325269600) 0.90 % LYMPH % (test code = 736-9) 17.6 % MONO % (test code = 5905-5) 8.7 % EOS % (test code = 713-8) 1.0 % BASO % (test code = 706-2) 0.2 % GRAN MAT x10^3(ANC) (test code = 4376643898) 7.27 10*3/uL 1.99-6.95 H IMM GRAN x10^3 (test code = 1227688498) 0.09 10*3/uL 0.00-0.06 H LYMPH x10^3 (test code = 731-0) 1.79 10*3/uL 1.09-3.23 MONO x10^3 (test code = 742-7) 0.88 10*3/uL 0.36-1.02 EOS x10^3 (test code = 711-2) 0.10 10*3/uL 0.06-0.53 BASO x10^3 (test code = 704-7) 0.01-0.09 Lab Interpretation (test code = 12726-1) Abnormal [facility] CenterLactic Acid Whole Qzzzs1189-12-83 00:14:48* Test Item Value Reference Range Interpretation Comme nts LACTIC ACID (test code = 0230746848) 1.30 mmol/L 0.50-2.20 Lab Interpretation (test cod e = 79192-7) Normal [facility] METABOLIC PANEL (NA, K, CL, CO2, GLUCOSE, BUN, CREATININE, CA)2022-12-04 11:06:33* Test Item Value Reference Range Interpretation Comme nts NA (test code = 8579560685) 123 mmol/L 135-145 L K (test code = 8376260763) 3.8 mmol/L 3.5-5.0 CL (test code = 3140365211) 86 mmol/L 98-108 L CO2 TOTAL (test code = 7979167501) 36 mmol/L 23-31 H AGAP (test code = 2112903256) 1 2-16 L BUN (test code = 0197846343) 22 mg/dL 7-23 GLUCOSE (test code = 0814559149) 195 mg/dL 70-110 H CREATININE (test code = 0672723793) 0.76 mg/dL 0.60-1.25 CALCIUM (test code = 0735493673) 8.2 mg/dL 8.6-10.6 L eGFR (test code = 7675712827) 103.3 mL/min/1.73m2 OMAYRA (test code = OMAYRA) [...] imaging tests). Lab Interpretation (test code = 67188-3) Abnormal [facility] WITH [id number] 10:54:29* Test Item Value Reference Range Interpretation Comme nts WBC (test code = 6690-2) 8.54 See_Comment [Automated [employer]] The system which generated this result transmitted reference range: 4.20 - 10.70 10*3/?L. The reference range was not used to interpret this result as normal/abnormal. RBC (test code = 789-8) 4.17 See_Comment L [Automated [employer]] The system which generated this result transmitted [...] 34.1 g/dL 31.2-35.0 RDW-SD (test code = 34153-3) 44.1 fL 38.5-51.6 RDW-CV (test code = 788-0) 13.6 % 12.1-15.4 PLT (test code = 777-3) 247 See_Comment [Automated [employer]] The system which generated this result transmitted reference range: 150 - 328 10*3/?L. The reference range was not used to interpret this result as normal/abnormal. MPV (test code = 40096-3) 9.5 fL 9.8-13.0 L NRBC/100 WBC (test code = 3881059268) 0.0 See_Comment [Automated me ssage] The system which generated this result transmitted reference range: 0.0 - 10.0 /100 WBCs. The reference range was not used to interpret this result as normal/abnormal. NRBC x10^3 (test code = 4248067649) See_Comment [Automated messa ge] The system which generated this result transmitted reference range: 10*3/?L. The reference range was not used to interpret this result as normal/abnormal. GRAN MAT (NEUT) % (test code = 770-8) 93.0 % IMM GRAN % (test code = 4484828556) 0.90 % LYMPH % (test code = 736-9) 3.2 % MONO % (test code = 5905-5) 2.9 % EOS % (test code = 713-8) 0.0 % BASO % (test code = 706-2) 0.0 % GRAN MAT x10^3(ANC) (test code = 2977330655) 7.94 10*3/uL 1.99-6.95 H IMM GRAN x10^3 (test code = 7216565003) 0.08 10*3/uL 0.00-0.06 H LYMPH x10^3 (test code = 731-0) 0.27 10*3/uL 1.09-3.23 L MONO x10^3 (test code = 742-7) 0.25 10*3/uL 0.36-1.02 L EOS x10^3 (test code = 711-2) 0.06-0.53 L BASO x10^3 (test code = 704-7) 0.01-0.09 Lab Interpretation (test code = 01821-7) Abnormal [facility] Metabolic Panel (NA, K, CL, CO2, GLUCOSE, BUN, CREATININE, CA)2022-12-03 10:44:53* Test Item Value Reference Range Interpretation Comme nts NA (test code = 8348889318) 126 mmol/L 135-145 L K (test code = 0220997891) 4.0 mmol/L 3.5-5.0 Slight hemolysis CL (test code = 5306688776) 89 mmol/L 98-108 L CO2 TOTAL (test code = 1331869093) 32 mmol/L 23-31 H AGAP (test code = 0834323582) 5 2-16 BUN (test code = 8293622716) 15 mg/dL 7-23 Slight hemolysis GLUCOSE (test code = 5594895611) 115 mg/dL 70-110 H CREATININE (test code = 8569300819) 0.63 mg/dL 0.60-1.25 CALCIUM (test code = 0946375287) 7.7 mg/dL 8.6-10.6 L eGFR (test code = 5742298388) 128.2 mL/min/1.73m2 OMAYRA (test code = OMAYRA) [...] imaging tests). Lab Interpretation (test code = 71360-3) [facility]60[facility]87 10:44:53* Test Item Value Reference Range Interpretation Comme nts MAGNESIUM (test code = 7168741321) 1.6 mg/dL 1.7-2.4 L Lab Interpretation (test cod e = 53953-0) Abnormal [facility] with Bdagsnpxhtoc6085-29-01 10:39:13* Test Item Value Reference Range Interpretation [...] 33.1 g/dL 31.2-35.0 RDW-SD (test code = 78978-6) 45.4 fL 38.5-51.6 RDW-CV (test code = 788-0) 13.6 % 12.1-15.4 PLT (test code = 777-3) 254 See_Comment [Automated message] The system which generated this result transmitted reference range: 150 - 328 10*3/?L. The reference range was not used to interpret this result as normal/abnormal. MPV (test code = 75069-9) 10.2 fL 9.8-13.0 NRBC/100 WBC (test code = 3928726465) 0.0 See_Comment [Automated message] The system which generated this result transmitted reference range: 0.0 - 10.0 /100 WBCs. The reference range was not used to interpret this result as normal/abnormal. NRBC x10^3 (test code = 4337262019) See_Comment [Automated message] The system which generated this result transmitted reference range: 10*3/?L. The reference range was not used to interpret this result as normal/abnormal. GRAN MAT (NEUT) % (test code = 770-8) 90.0 % IMM GRAN % (test code = 2586828812) 0.90 % LYMPH % (test code = 736-9) 5.9 % MONO % (test code = 5905-5) 2.8 % EOS % (test code = 713-8) 0.2 % BASO % (test code = 706-2) 0.2 % GRAN MAT x10^3(ANC) (test code = 5035133338) 10.27 10*3/uL 1.99-6.95 H IMM GRAN x10^3 (test code = 8611258135) 0.10 10*3/uL 0.00-0.06 H LYMPH x10^3 (test code = 731-0) 0.67 10*3/uL 1.09-3.23 L MONO x10^3 (test code = 742-7) 0.32 10*3/uL 0.36-1.02 L EOS x10^3 (test code = 711-2) 0.06-0.53 L BASO x10^3 (test code = 704-7) 0.01-0.09 Lab Interpretation (test code = 31427-9) Abnormal [facility] METABOLIC PANEL (NA, K, CL, CO2, GLUCOSE, BUN, CREATININE, CA)2022-12-02 06:20:42* Test Item Value Reference Range Interpretation Comme nts NA (test code = 1863711317) 124 mmol/L 135-145 L K (test code = 7147011758) 4.5 mmol/L 3.5-5.0 CL (test code = 8113584200) 78 mmol/L 98-108 L CO2 TOTAL (test code = 6270354875) 37 mmol/L 23-31 H AGAP (test code = 2788686135) 9 2-16 BUN (test code = 1341211868) 14 mg/dL 7-23 GLUCOSE (test code = 7041292169) 93 mg/dL 70-110 CREATININE (test code = 6663715574) 0.71 mg/dL 0.60-1.25 CALCIUM (test code = 5420660408) 9.1 mg/dL 8.6-10.6 eGFR (test code = 5931266553) 111.7 mL/min/1.73m2 OMAYRA (test code = OMAYRA) [...] imaging tests). Lab Interpretation (test code = 14287-1) [facility]normal [facility] [id number] 12:22:32* Test Item Value Reference Range Interpretation Comme nts TROPONIN I (test code = 9097495847) 0.008 ng/mL <=0.034 OMAYRA (test code = [...] of biotin. Lab Interpretation (test code = 69876-6) Normal [facility] METABOLIC PANEL (NA, K, CL, CO2, GLUCOSE, BUN, CREATININE, CA)2022-12-01 12:11:11* Test Item Value Reference Range Interpretation Comme nts NA (test code = 7588735060) 124 mmol/L 135-145 L K (test code = 3459933069) 4.2 mmol/L 3.5-5.0 CL (test code = 7960608122) 79 mmol/L 98-108 L CO2 TOTAL (test code = 6142145440) 37 mmol/L 23-31 H AGAP (test code = 7712928408) 8 2-16 BUN (test code = 9147460707) 16 mg/dL 7-23 GLUCOSE (test code = 6068017965) 105 mg/dL 70-110 CREATININE (test code = 0923720114) 0.67 mg/dL 0.60-1.25 CALCIUM (test code = 9978407509) 8.6 mg/dL 8.6-10.6 eGFR (test code = 6609794943) 119.4 mL/min/1.73m2 OMAYRA (test code = OMAYRA) [...] imaging tests). Lab Interpretation (test code = 86248-7) Abnormal [facility] WITH GVKB5914-56-02 11:59:32* Test Item Value Reference Range Interpretation [...] 32.9 g/dL 31.2-35.0 RDW-SD (test code = 86345-9) 43.8 fL 38.5-51.6 RDW-CV (test code = 788-0) 13.2 % 12.1-15.4 PLT (test code = 777-3) 208 See_Comment [Automated message] The system which generated this result transmitted reference range: 150 - 328 10*3/?L. The reference range was not used to interpret this result as normal/abnormal. MPV (test code = 82749-0) 9.8 fL 9.8-13.0 NRBC/100 WBC (test code = 7045678179) 0.0 See_Comment [Automated message] The system which generated this result transmitted reference range: 0.0 - 10.0 /100 WBCs. The reference range was not used to interpret this result as normal/abnormal. NRBC x10^3 (test code = 0387935269) See_Comment [Automated message] The system which generated this result transmitted reference range: 10*3/?L. The reference range was not used to interpret this result as normal/abnormal. GRAN MAT (NEUT) % (test code = 770-8) 85.9 % IMM GRAN % (test code = 3193156432) 0.50 % LYMPH % (test code = 736-9) 6.8 % MONO % (test code = 5905-5) 6.3 % EOS % (test code = 713-8) 0.3 % BASO % (test code = 706-2) 0.2 % GRAN MAT x10^3(ANC) (test code = 5613383094) 10.44 10*3/uL 1.99-6.95 H IMM GRAN x10^3 (test code = 5631420795) 0.06 10*3/uL 0.00-0.06 LYMPH x10^3 (test code = 731-0) 0.83 10*3/uL 1.09-3.23 L MONO x10^3 (test code = 742-7) 0.77 10*3/uL 0.36-1.02 EOS x10^3 (test code = 711-2) 0.04 10*3/uL 0.06-0.53 L BASO x10^3 (test code = 704-7) 0.03 10*3/uL 0.01-0.09 Lab Interpretation (test code = 91648-1) Abnormal [facility] METABOLIC PANEL (NA, K, CL, CO2, GLUCOSE, BUN, CREATININE, CA)2022-11-28 17:17:23* Test Item Value Reference Range Interpretation Comme nts NA (test code = 1176226394) 120 mmol/L 135-145 L K (test code = 3289704764) 4.3 mmol/L 3.5-5.0 CL (test code = 4547592681) 77 mmol/L 98-108 L CO2 TOTAL (test code = 6385377746) 40 mmol/L 23-31 H AGAP (test code = 5591588049) 3 2-16 BUN (test code = 6771551447) 15 mg/dL 7-23 GLUCOSE (test code = 4377290809) 151 mg/dL 70-110 H CREATININE (test code = 7085827092) 0.63 mg/dL 0.60-1.25 CALCIUM (test code = 7089510809) 8.2 mg/dL 8.6-10.6 L eGFR (test code = 4264051133) 128.2 mL/min/1.73m2 OMAYRA (test code = OMAYRA) [...] imaging tests). Lab Interpretation (test code = 71380-8) [facility]normal [facility]20[facility] 06:54:10* Test Item Value Reference Range Interpretation Comme nts MAGNESIUM (test code = 3260288711) 1.6 mg/dL 1.7-2.4 L Lab Interpretation (test cod e = 19784-4) [facility] (NA, K, CL, CO2, GLUCOSE, BUN, CREATININE, CA)2022-11-28 01:29:53* Test Item Value Reference Range Interpretation Comme nts NA (test code = 7493142340) 120 mmol/L 135-145 L K (test code = 7538216113) 3.9 mmol/L 3.5-5.0 CL (test code = 4081357913) 77 mmol/L 98-108 L CO2 TOTAL (test code = 5498174293) 36 mmol/L 23-31 H AGAP (test code = 7356894899) 7 2-16 BUN (test code = 0861705374) 17 mg/dL 7-23 GLUCOSE (test code = 6814355841) 85 mg/dL 70-110 CREATININE (test code = 0998663716) 0.76 mg/dL 0.60-1.25 CALCIUM (test code = 1289554813) 8.3 mg/dL 8.6-10.6 L eGFR (test code = 5086344767) 103.3 mL/min/1.73m2 OMAYRA (test code = OMAYRA) [...] imaging tests). Lab Interpretation (test code = 59552-5) Abnormal [facility] METABOLIC PANEL (NA, K, CL, CO2, GLUCOSE, BUN, CREATININE, CA)2022-11-27 20:36:26* Test Item Value Reference Range Interpretation Comme nts NA (test code = 1846341675) 122 mmol/L 135-145 L K (test code = 1742704206) 3.9 mmol/L 3.5-5.0 CL (test code = 7211646191) 79 mmol/L 98-108 L CO2 TOTAL (test code = 2296319142) 37 mmol/L 23-31 H AGAP (test code = 8388214243) 6 2-16 BUN (test code = 1147454254) 17 mg/dL 7-23 GLUCOSE (test code = 8340774359) 113 mg/dL 70-110 H CREATININE (test code = 9827637704) 0.78 mg/dL 0.60-1.25 CALCIUM (test code = 3615699635) 7.8 mg/dL 8.6-10.6 L eGFR (test code = 8846567681) 100.2 mL/min/1.73m2 OMAYRA (test code = OMAYRA) [...] imaging tests). Lab Interpretation (test code = 66887-6) Abnormal [facility] CenterGLYCOSYLATED HEMOGLOBIN (A1C)2022-11-27 18:21:30* Test Item Value Reference Range Interpretation Comme [facility] HGB A1C (test code = 4548-4) 5.9 % 4.0-5.7 H OMAYRA (test code = OMAYRA) Reference RangesNormal: <5.7%Prediabetes: 5.7 - 6.4%Diabetes: > 6.5% Lab Interpretation (test code = 86430-8) Abnormal [facility] CenterTR[facility]IN [id number] 06:12:58* Test Item Value Reference Range Interpretation Comme [facility] TROPONIN I (test code = 4314196978) 0.007 ng/mL <=0.034 OMAYRA (test code = [...] of biotin. Lab Interpretation (test code = 44378-3) Normal [facility]20[facility] 06:10:43 ALCOHOL<10mg/dL11/27/2022 12:10 AM [facility]<10 Vnkosuil00-463 Toxic>100 Depression of [employer]ANT>400 Fatalities ReportedGuadalupe Regional Medical CenterN-TERMINAL JNT-HGM8845-33-11 06:09:37* Test Item Value Reference Range Interpretation Comme nts NT-proBNP (test code = 8351321569) 311 pg/mL <=125 H OMAYRA (test code = OMAYRA) Biotin has been reported to cause a negative bias, interpret results relative to patient's use of biotin. Lab Interpretation (test code = 10588-5) Abnormal [facility] CenterCOMP[facility]OL[facility] PAN[facility] (76125)2022-11-27 06:08:02* Test Item Value Reference Range Interpretation Comme nts NA (test code = 8772070881) 116 mmol/L 135-145 LL K (test code = 6965301225) 4.1 mmol/L 3.5-5.0 CL (test code = 2908551514) 75 mmol/L 98-108 L CO2 TOTAL (test code = 6955980433) 34 mmol/L 23-31 H AGAP (test code = 2322203184) 7 2-16 BUN (test code = 4184854026) 16 mg/dL 7-23 GLUCOSE (test code = 9218625652) 70 mg/dL 70-110 CREATININE (test code = 9550472379) 0.62 mg/dL 0.60-1.25 TOTAL BILI (test code = 5732194897) 1.2 mg/dL 0.1-1.1 H CALCIUM (test code = 9877307459) 8.1 mg/dL 8.6-10.6 L T PROTEIN (test code = 7534633782) 6.3 g/dL 6.3-8.2 ALBUMIN (test code = 9386996987) 3.8 g/dL 3.5-5.0 ALK PHOS (test code = 2670196026) 58 U/L 34-122 ALTv (test code = 1742-6) 15 U/L 5-50 AST(SGOT) (test code = 5600564035) 13 U/L 13-40 eGFR (test code = 8604671861) 130.6 mL/min/1.73m2 OMAYRA (test code = OMAYRA) [...] imaging tests). Lab Interpretation (test code = 12808-2) Abnormal [facility] WITH [id number] 05:45:18* Test Item Value Reference Range Interpretation Comme nts WBC (test code = 6690-2) 9.18 See_Comment [Automated [employer]] The system which generated this result transmitted reference range: 4.20 - 10.70 10*3/?L. The reference range was not used to interpret this result as normal/abnormal. RBC (test code = 789-8) 4.49 See_Comment [Automated [employer]] The system which generated this result transmitted [...] 34.8 g/dL 31.2-35.0 RDW-SD (test code = 37928-0) 40.1 fL 38.5-51.6 RDW-CV (test code = 788-0) 12.6 % 12.1-15.4 PLT (test code = 777-3) 216 See_Comment [Automated messa ge] The system which generated this result transmitted reference range: 150 - 328 10*3/?L. The reference range was not used to interpret this result as normal/abnormal. MPV (test code = 06808-4) 9.4 fL 9.8-13.0 L NRBC/100 WBC (test code = 6937788866) 0.0 See_Comment [[employer]] The system which generated this result transmitted reference range: 0.0 - 10.0 /100 WBCs. The reference range was not used to interpret this result as normal/abnormal. NRBC x10^3 (test code = 1108673894) See_Comment [Automated messa ge] The system which generated this result transmitted reference range: 10*3/?L. The reference range was not used to interpret this result as normal/abnormal. GRAN MAT (NEUT) % (test code = 770-8) 79.1 % IMM GRAN % (test code = 4608055623) 0.90 % LYMPH % (test code = 736-9) 11.8 % MONO % (test code = 5905-5) 6.8 % EOS % (test code = 713-8) 1.2 % BASO % (test code = 706-2) 0.2 % GRAN MAT x10^3(ANC) (test code = 5737797731) 7.27 10*3/uL 1.99-6.95 H IMM GRAN x10^3 (test code = 5403180342) 0.08 10*3/uL 0.00-0.06 H LYMPH x10^3 (test code = 731-0) 1.08 10*3/uL 1.09-3.23 L MONO x10^3 (test code = 742-7) 0.62 10*3/uL 0.36-1.02 EOS x10^3 (test code = 711-2) 0.11 10*3/uL 0.06-0.53 BASO x10^3 (test code = 704-7) 0.01-0.09 Lab Interpretation (test code = 41954-4) Abnormal [facility] CenterN-[facility]MINAL RFY-[id number] 09:49:54* Test Item Value Reference Range Interpretation Comme nts NT-proBNP (test code = 9125698021) 294 pg/mL <=125 H OMAYRA (test code = OMAYRA) Biotin has been reported to cause a negative bias, interpret results relative to patient's use of biotin. Lab Interpretation (test code = 85956-6) Abnormal [facility] Center[facility]OL[facility] (01952)2022-11-19 09:41:52* Test Item Value Reference Range Interpretation Comme nts NA (test code = 4587557011) 120 mmol/L 135-145 L K (test code = 3356348137) 4.4 mmol/L 3.5-5.0 CL (test code = 2072865257) 80 mmol/L 98-108 L CO2 TOTAL (test code = 4057505011) 34 mmol/L 23-31 H AGAP (test code = 1711071448) 6 2-16 BUN (test code = 6735313546) 10 mg/dL 7-23 GLUCOSE (test code = 8040092798) 93 mg/dL 70-110 CREATININE (test code = 3016604224) 0.77 mg/dL 0.60-1.25 TOTAL BILI (test code = 3628729857) 1.1 mg/dL 0.1-1.1 CALCIUM (test code = 6325150992) 8.7 mg/dL 8.6-10.6 T PROTEIN (test code = 2455730284) 6.9 g/dL 6.3-8.2 ALBUMIN (test code = 6180036392) 4.1 g/dL 3.5-5.0 ALK PHOS (test code = 8756613091) 60 U/L 34-122 ALTv (test code = 1742-6) 14 U/L 5-50 AST(SGOT) (test code = 0476078335) 13 U/L 13-40 eGFR (test code = 4664983454) 101.7 mL/min/1.73m2 OMAYRA (test code = OMAYRA) [...] imaging tests). Lab Interpretation (test code = 76498-8) Abnormal [facility] WITH [id number] 09:02:29* Test Item Value Reference Range Interpretation Comme nts WBC (test code = 6690-2) 8.30 See_Comment [Automated [employer]] The system which generated this result transmitted [...] 33.7 g/dL 31.2-35.0 RDW-SD (test code = 08746-3) 42.3 fL 38.5-51.6 RDW-CV (test code = 788-0) 12.9 % 12.1-15.4 PLT (test code = 777-3) 252 See_Comment [Automated messa ge] The system which generated this result transmitted reference range: 150 - 328 10*3/?L. The reference range was not used to interpret this result as normal/abnormal. MPV (test code = 59314-7) 9.6 fL 9.8-13.0 L NRBC/100 WBC (test code = 0832358341) 0.0 See_Comment [Automated Events Core ssage] The system which generated this result transmitted reference range: 0.0 - 10.0 /100 WBCs. The reference range was not used to interpret this result as normal/abnormal. NRBC x10^3 (test code = 7196170675) See_Comment [Automated messa ge] The system which generated this result transmitted reference range: 10*3/?L. The reference range was not used to interpret this result as normal/abnormal. GRAN MAT (NEUT) % (test code = 770-8) 70.7 % IMM GRAN % (test code = 5584527963) 1.00 % LYMPH % (test code = 736-9) 16.0 % MONO % (test code = 5905-5) 10.5 % EOS % (test code = 713-8) 1.3 % BASO % (test code = 706-2) 0.5 % GRAN MAT x10^3(ANC) (test code = 8387998576) 5.87 10*3/uL 1.99-6.95 IMM GRAN x10^3 (test code = 9959434152) 0.08 10*3/uL 0.00-0.06 H LYMPH x10^3 (test code = 731-0) 1.33 10*3/uL 1.09-3.23 MONO x10^3 (test code = 742-7) 0.87 10*3/uL 0.36-1.02 EOS x10^3 (test code = 711-2) 0.11 10*3/uL 0.06-0.53 BASO x10^3 (test code = 704-7) 0.04 10*3/uL 0.01-0.09 Lab Interpretation (test code = 27223-2) Abnormal [facility] METABOLIC PANEL (NA, K, CL, CO2, GLUCOSE, BUN, CREATININE, CA)2022-11-10 23:42:55* Test Item Value Reference Range Interpretation Comme nts NA (test code = 3734085985) 121 mmol/L 135-145 L K (test code = 2519383073) 4.7 mmol/L 3.5-5.0 CL (test code = 8871938522) 82 mmol/L 98-108 L CO2 TOTAL (test code = 2924282240) 34 mmol/L 23-31 H AGAP (test code = 7677791580) 5 2-16 BUN (test code = 3013593686) 15 mg/dL 7-23 GLUCOSE (test code = 6893991358) 120 mg/dL 70-110 H CREATININE (test code = 0199776777) 0.75 mg/dL 0.60-1.25 CALCIUM (test code = 1607317834) 7.7 mg/dL 8.6-10.6 L eGFR (test code = 2117463378) 104.8 mL/min/1.73m2 OMAYRA (test code = OMAYRA) [...] imaging tests). Lab Interpretation (test code = 53925-3) Abnormal [facility] METABOLIC PANEL (NA, K, CL, CO2, GLUCOSE, BUN, CREATININE, CA)2022-11-10 17:59:59* Test Item Value Reference Range Interpretation Comme nts NA (test code = 0946120025) 121 mmol/L 135-145 L K (test code = 8293893342) 4.3 mmol/L 3.5-5.0 CL (test code = 0646163354) 81 mmol/L 98-108 L CO2 TOTAL (test code = 4521789955) 38 mmol/L 23-31 H AGAP (test code = 4530487999) 2 2-16 BUN (test code = 6028164781) 15 mg/dL 7-23 GLUCOSE (test code = 5447949424) 113 mg/dL 70-110 H CREATININE (test code = 2699533790) 0.74 mg/dL 0.60-1.25 CALCIUM (test code = 4686151633) 7.5 mg/dL 8.6-10.6 L eGFR (test code = 1772230499) 106.5 mL/min/1.73m2 OMAYRA (test code = OMAYRA) [...] imaging tests). Lab Interpretation (test code = 15789-9) [facility]-EEX1884-32-21 13:08:23* Test Item Value Reference Range Interpretation Comme nts NT-proBNP (test code = 9248709260) 177 pg/mL <=125 H OMAYRA (test code = OMAYRA) Biotin has been reported to cause a negative bias, interpret results relative to patient's use of biotin. Lab Interpretation (test code = 41397-2) Abnormal [facility]TR[facility] W7441-11-20 08:23:33* Test Item Value Reference Range Interpretation Comme nts TROPONIN I (test code = 7708659828) 0.004 ng/mL <=0.034 OMAYRA (test code = [...] of biotin. Lab Interpretation (test code = 39157-5) Normal [facility]. METABOLIC PANEL (94797)2022-11-09 08:12:09* Test Item Value Reference Range Interpretation Comme nts NA (test code = 3208572335) 123 mmol/L 135-145 L K (test code = 1293810251) 4.2 mmol/L 3.5-5.0 CL (test code = 4807653868) 78 mmol/L 98-108 L CO2 TOTAL (test code = 9188267600) 34 mmol/L 23-31 H AGAP (test code = 3401404071) 11 2-16 BUN (test code = 5670352321) 8 mg/dL 7-23 GLUCOSE (test code = 1774137532) 113 mg/dL 70-110 H CREATININE (test code = 6646233441) 0.87 mg/dL 0.60-1.25 TOTAL BILI (test code = 5255129991) 1.2 mg/dL 0.1-1.1 H CALCIUM (test code = 3052795867) 8.8 mg/dL 8.6-10.6 T PROTEIN (test code = 8156096459) 7.6 g/dL 6.3-8.2 ALBUMIN (test code = 9944287768) 4.5 g/dL 3.5-5.0 ALK PHOS (test code = 3232288030) 72 U/L 34-122 ALTv (test code = 1742-6) 13 U/L 5-50 AST(SGOT) (test code = 7402154936) 13 U/L 13-40 eGFR (test code = 7296602562) 88.3 mL/min/1.73m2 OMAYRA (test code = OMAYRA) [...] imaging tests). Lab Interpretation (test code = 76462-6) [facility]normal [facility] CenterLIP[facility], LIINF1457-67-87 08:11:14* Test Item Value Reference Range Interpretation Comme nts LIPASE (test code = 6035956956) 108 U/L 0-220 Lab Interpretation (test cod e = 38355-3) Normal [facility] CenterCBC WITH JYFD0139-33-05 07:59:28* Test Item Value Reference Range Interpretation Comme nts WBC (test code = 6690-2) 8.95 See_Comment [Automated [employer]] The system which generated this result transmitted reference range: 4.20 - 10.70 10*3/?L. The reference range was not used to interpret this result as normal/abnormal. RBC (test code = 789-8) 5.07 See_Comment [Automated [employer]] The system which generated this result transmitted [...] 32.8 g/dL 31.2-35.0 RDW-SD (test code = 99789-5) 41.1 fL 38.5-51.6 RDW-CV (test code = 788-0) 12.5 % 12.1-15.4 PLT (test code = 777-3) 235 See_Comment [Automated messa ge] The system which generated this result transmitted reference range: 150 - 328 10*3/?L. The reference range was not used to interpret this result as normal/abnormal. MPV (test code = 00877-8) 9.8 fL 9.8-13.0 NRBC/100 WBC (test code = 1734454886) 0.0 See_Comment [Automated me ssage] The system which generated this result transmitted reference range: 0.0 - 10.0 /100 WBCs. The reference range was not used to interpret this result as normal/abnormal. NRBC x10^3 (test code = 6849245719) See_Comment [Automated me ssage] The system which generated this result transmitted reference range: 10*3/?L. The reference range was not used to interpret this result as normal/abnormal. GRAN MAT (NEUT) % (test code = 770-8) 56.9 % IMM GRAN % (test code = 4224046607) 0.40 % LYMPH % (test code = 736-9) 29.4 % MONO % (test code = 5905-5) 9.5 % EOS % (test code = 713-8) 3.0 % BASO % (test code = 706-2) 0.8 % GRAN MAT x10^3(ANC) (test code = 5852956892) 5.09 10*3/uL 1.99-6.95 IMM GRAN x10^3 (test code = 3199205088) 0.04 10*3/uL 0.00-0.06 LYMPH x10^3 (test code = 731-0) 2.63 10*3/uL 1.09-3.23 MONO x10^3 (test code = 742-7) 0.85 10*3/uL 0.36-1.02 EOS x10^3 (test code = 711-2) 0.27 10*3/uL 0.06-0.53 BASO x10^3 (test code = 704-7) 0.07 10*3/uL 0.01-0.09 [facility], YFEXKIUVWB8706-60-13 19:05:00 * Test Item Value Reference Range [...] clear [facility]CT [facility], NDJIEYTBHY7670-83-88 19:05:00 * Test Item Value Reference Range [...] U APPEAR (test code = 3267) clear [facility] CenterPOSC URINALYSIS, QPPQRKZFSV0587-02-36 19:05:00 * Test Item Value Reference Range [...] U APPEAR (test code = 3267) clear [facility] ABDOMEN PELVIS W SOPXBQIF0624-79-57 17:53:531. ?No hydronephrosis or nephrolithiasis. 2. ?Mild [...] hernia with mild circumferential distalesophageal thickening (2:16). Maskell density within the distal stomach andat the [...] hernia with mild circumferential distalesophageal thickening (2:16). Maskell density within the distal stomach andat the [...] small right hydrocele.5. Additional findings as above. [facility] KiqutjGhrfouwtwc3821-52-18 17:37:38* Test Item Value Reference Range Interpretation Comme nts APPEARANCE (test code = 4580454324) Cloudy Clear A COLOR (test code = 0112956705) Red Yellow A PH (test code = 2054371276) 4.8-8.0 SP GRAVITY (test code = 1545542388) 1.003-1.030 GLU U QUAL (test code = 8973859606) 50 mg/dL Normal A BLOOD (test code = 1682960607) 3+ Negative A KETONES (test code = 1196547790) Negative Negative PROTEIN (test code = 2887-8) 100 mg/dL Negative A UROBILIN (test code = 4457604986) Normal Normal BILIRUBIN (test code = 5188160002) Negative Negative NITRITE (test code = 2637024488) Negative Negative LEUK DIANELYS (test code = 4288656569) Negative Negative RBC/HPF (test code = 4569214894) >182 See_Comment H [Automated messa ge] The system which generated this result transmitted reference range: 0 - 3 HPF. The reference range was not used to interpret this result as normal/abnormal. WBC/HPF (test code = 8941160266) >182 See_Comment H [Automated messa ge] The system which generated this result transmitted reference range: 0 - 5 HPF. The reference range was not used to interpret this result as normal/abnormal. BACTERIA (test code = 6035112889) Moderate Negative A WBC CLUMPS (test code = 6289535070) See_Comment H [Automated messa ge] The system which generated this result transmitted reference range: <=1 HPF. The reference range was not used to interpret this result as normal/abnormal. Lab Interpretation (test code = 37467-4) Abnormal [facility] Metabolic Panel (NA, K, CL, CO2, GLUCOSE, BUN, CREATININE, CA)2020-12-12 17:13:57* Test Item Value Reference Range Interpretation Comme nts NA (test code = 2358536181) 140 mmol/L 135-145 K (test code = 4882115345) 4.5 mmol/L 3.5-5.0 CL (test code = 0610121322) 100 mmol/L 98-108 CO2 TOTAL (test code = 6678325090) 35 mmol/L 23-31 H AGAP (test code = 5978869602) 2-16 BUN (test code = 2059488598) 25 mg/dL 7-23 H GLUCOSE (test code = 9060075573) 114 mg/dL 70-110 H CREATININE (test code = 2140789404) 1.18 mg/dL 0.60-1.25 CALCIUM (test code = 2659221882) 9.0 mg/dL 8.6-10.6 eGFR Calculation (Non-) (test code = 0311405249) mL/min/1.73m2 eGFR Calculation () (test code = 5159303158) mL/min/1.73m2 OMAYRA (test code = OMAYRA) Association [...] imaging tests). Lab Interpretation (test code = 17679-0) Abnormal [facility] with Nwoznqwihwmr9986-71-40 16:56:10* Test Item Value Reference Range Interpretation Comme nts WBC (test code = 6690-2) See_Comment [Automated [employer]] The system which generated this result transmitted reference range: 4.20 - 10.70 10*3/?L. The reference range was not used to interpret this result as normal/abnormal. RBC (test code = 789-8) See_Comment [Automated [employer]] The system which generated this result transmitted [...] 32.8 g/dL 31.2-35.0 RDW-SD (test code = 97399-3) 42.9 fL 38.5-51.6 RDW-CV (test code = 788-0) 11.9 % 12.1-15.4 L PLT (test code = 777-3) See_Comment [Automated messa ge] The system which generated this result transmitted reference range: 150 - 328 10*3/?L. The reference range was not used to interpret this result as normal/abnormal. MPV (test code = 58672-0) 10.8 fL 9.8-13.0 NRBC/100 WBC (test code = 4005202967) See_Comment [[employer] ssage] The system which generated this result transmitted reference range: 0.0 - 10.0 /100 WBCs. The reference range was not used to interpret this result as normal/abnormal. NRBC x10^3 (test code = 2392543818) <0.01 See_Comment [Automated messa ge] The system which generated this result transmitted reference range: 10*3/?L. The reference range was not used to interpret this result as normal/abnormal. GRAN MAT (NEUT) % (test code = 770-8) 63.5 % IMM GRAN % (test code = 5355454433) 0.40 % LYMPH % (test code = 736-9) 23.9 % MONO % (test code = 5905-5) 6.7 % EOS % (test code = 713-8) 4.3 % BASO % (test code = 706-2) 1.2 % GRAN MAT x10^3(ANC) (test code = 5358613634) 4.27 10*3/uL 1.99-6.95 IMM GRAN x10^3 (test code = 6283690075) 0.03 10*3/uL 0.00-0.06 LYMPH x10^3 (test code = 731-0) 1.61 10*3/uL 1.09-3.23 MONO x10^3 (test code = 742-7) 0.45 10*3/uL 0.36-1.02 EOS x10^3 (test code = 711-2) 0.29 10*3/uL 0.06-0.53 BASO x10^3 (test code = 704-7) 0.08 10*3/uL 0.01-0.09 Lab Interpretation (test code = 38928-9) Abnormal [facility], AHOYOBWXWN4002-72-81 18:56:00 * Test Item Value Reference Range [...] turbid Lab Interpretation (test cod e = 57934-9) Abnormal [facility], YJYZTKVJFW5820-39-42 18:56:00 * Test Item Value Reference Range [...] turbid Lab Interpretation (test cod e = 80487-7) Abnormal [facility]- XR CHEST 9F4399-29-02 16:22:00Patient Name: THIERRY MONGE Unit No: [id number] EXAMS: CPT CODE: [id number] XR CHEST 1V 16412 EXAMINATION: - XR CHEST 1V. LOCATION: B2. HISTORY: S/P ICD. COMPARISON: None. TECHNIQUE: Single AP view ofthe chest was obtained. FINDINGS: The right lung apex is excluded from the gvtvu-di-qlee. The heartis normal in size. Left AICD device is present. The lungs are clear. No acute osseous abnormality is identified. IMPRESSION: The right lung apex is excluded from the cgnlq-cj-brzq. No acute cardiopulmonary abnormality is identified. at 1622 Reported and signed by: Latanya Marshall MD CC: Tyrell Mckeon Technologist: JOSELYN Mathews,RT(R) Transcrpt Date/Tm/Trnsp: 06/19/2020 (1622) t.ANGELAR.PR7 Orig Print D/T: S: 06/19/2020 (1625) [facility] NAME: THIERRY MONGE [address] [address] PHYS: [place] [address] : 1960 AGE: 59 SEX: M LOC: Z.354 A PHONE #: [phone] EXAM DATE: 06/19/2020 STATUS: ADM IN FAX #: [phone] RADIOLOGY NO: PAGE 1 Signed ReportBASIC METABOLIC CBMZD5054-76-67 13:17:00* Test Item Value Reference Range Interpretation [...] code = CA) MG/DL 8.7-9.7 Comments to Marketing Planning Manager: NURSE WILL BRING SPECIMEN TO LABIs this a LINE draw? N KWHLRFANE2195-01-69 13:17:00* Test Item Value Reference Range Interpretation Comme nts MAGNESIUM (test code = MAG) MG/DL 1.6-2.3 Comments to Marketing Planning Manager: NURSE WILL BRING SPECIMEN TO LABIs this a LINE draw? N BASIC METABOLIC LESOS1245-76-69 13:17:00* Test Item Value Reference Range Interpretation [...] CA) 9.1 MG/DL 8.4-10.2 N Comments to Marketing Planning Manager: NURSE WILL BRING SPECIMEN TO LABIs this a LINE draw? N ZFLRSNOGC5674-37-67 13:17:00* Test Item Value Reference Range Interpretation Comme nts MAGNESIUM (test code = MAG) 2.2 MG/DL 1.6-2.3 N Comments to Marketing Planning Manager: NURSE WILL BRING SPECIMEN TO LABIs this a LINE draw? N BASIC METABOLIC OJVCF3695-75-94 13:16:00* Test Item Value Reference Range Interpretation [...] code = CA) MG/DL 8.7-9.7 Comments to Marketing Planning Manager: NURSE WILL BRING SPECIMEN TO LABIs this a LINE draw? N BWTYLSLJD0570-89-07 13:16:00* Test Item Value Reference Range Interpretation Comme nts MAGNESIUM (test code = MAG) MG/DL 1.6-2.3 Comments to Marketing Planning Manager: NURSE WILL BRING SPECIMEN TO LABIs this a LINE draw? N BASIC METABOLIC JXGBT3489-04-66 13:14:00* Test Item Value Reference Range Interpretation [...] code = CA) MG/DL 8.7-9.7 Comments to Marketing Planning Manager: NURSE WILL BRING SPECIMEN TO LABIs this a LINE draw? N LADZYEOXL6625-66-39 13:14:00* Test Item Value Reference Range Interpretation Comme nts MAGNESIUM (test code = MAG) MG/DL 1.6-2.3 Comments to Marketing Planning Manager: NURSE WILL BRING SPECIMEN TO LABIs this a LINE draw? N BASIC METABOLIC NGJIS4550-77-97 13:13:00* Test Item Value Reference Range Interpretation [...] code = CA) MG/DL 8.7-9.7 Comments to Marketing Planning Manager: NURSE WILL BRING SPECIMEN TO LABIs this a LINE draw? N YLDWYRUKB7895-03-01 13:13:00* Test Item Value Reference Range Interpretation Comme nts MAGNESIUM (test code = MAG) MG/DL 1.6-2.3 Comments to Marketing Planning Manager: NURSE WILL BRING SPECIMEN TO LABIs this a LINE draw? N PROTHROMBIN VPCF3265-69-10 13:08:00* Test Item Value Reference Range Interpretation [...] systemic embolism. 3.0 - 4.5 Comments to Marketing Planning Manager: NURSE WILL BRING SPECIMEN TO LABPTT ACTIVATED 2020-06-19 13:08:00* Test Item Value Reference Range Interpretation Comme nts PTT ACTIVATED (test code = APTT) 30.8 SECONDS 25.1-36.5 N Comments to Marketing Planning Manager: NURSE WILL BRING SPECIMEN TO LABCBC W/AUTO [...] NRBC#) 0.00 K/mm3 0.0-0.1 N Comments to Marketing Planning Manager: NURSE WILL BRING SPECIMEN TO LABIs this a LINE draw? N COVID 19 Asymptomatic IH HI5085-43-57 12:14:00* Test Item Value Reference Range Interpretation [...] Notes Date/Time Note Provider Source 2023-03-20 00:11:00 [id number] fXZME+k1ls+5y0qdoVHqG6NSlEqee KJf363hjVyp8nbMClug56m8KPrZ5336-67-59B85:11:00 [facility] ([facility])Hospitalist Discharge SummaryREPORT#:[id number] REPORT STATUS: SignedDATE:03/20/23 TIME: 0011 PATIENT: THIERRY MONGE UNIT #: [id number]#: [id number] [facility] [birth year] AGE: 62 SEX: M ATTEND: Rudy Xiao MDADM AUTHOR: Rudy Xiao MD * ALL edits [...] combative without cigarette smoking or nicotine patches.PLAN- Flexo Press Operator on cessation- Cont. nicotine patch PATIENT HAS [...] combative without cigarette smoking or nicotine patches.PLAN- Flexo Press Operator on cessation- Cont. nicotine patch Code Status: [...] Comments: #30 - SIG Obtained From [facility] MEMANTINE (NAMENDA) 5 MG TAB 5 MILLIGRAM ORAL DAILY. Comments: #90 - SIG Obtained From [facility] RIVAROXABAN (XARELTO) 15 MG TAB 15 MILLIGRAM [...] B/P 138/69 07/ 1000 B/P Mean 97 07/ 1000 Pulse 93 07/ 1000 Resp 8 03/19 1000 O2 Delivery [...] no edemaMusculoskeletal: normal inspection, painless range of motionNeuro/COMMERCIAL SALES CONSULTANT: alert, normal speechSkin: dryPsychiatry: abnl judgment/insight, normal affect, normal mood, no hallucinations ResultsFindings/Data:Laboratory Tests: 03/19 03/19 1121 0733 Chemistry POC Glucose (60 - 99 MG/DL) 112 H 170 H Results: MRI results reviewed Discharge Instructions PCPDischarge to: Home/Self CareAdditional Discharge Routines: PCP Follow-Up, Heating Unit Installer Follow-UpDiet: Cardiac Follow-up AppointmentsPCP follow-up: PCP: Undefined [...] 25 or < 18.5BMI status/follow-up: nml BMI,no after school counselor needed at 0016 RPT #:[id number] OF REPORTDSDischarge ygxigib3747-22-37G79:11:00Z.NXCA73991465-8419UGHl ailable for patient iptbYAJYFEGJXHLMHM0843-39-37J12:16:42 [facility] 2023-03-19 12:19:00 [id number] nc2PN2h2JkQGX/7TJlaQEbNd+HsGV fk6h4F4DlmPKDQOatOPWQX5+P5q8209-14-61A10:19:00 [facility] ([facility])Cardiology Progress NoteREPORT#:[id number] REPORT STATUS: SignedDATE:03/19/23 TIME: 1219 PATIENT: THIERRY MONGE UNIT #: [id number]#: [id number] [facility] [birth year] AGE: 62 SEX: M ATTEND: Rudy Xiao [facility] AUTHOR: Tyrell Mckeon MD * ALL edits [...] LE assessment: no edemaMusculoskeletal: full range of motionNeuro/COMMERCIAL SALES CONSULTANT: alert, oriented X 3, CN II-XII intactSkin: [...] f/u with Dr. Tenorio as outpatient. at [address] [place] [address] #:[id number] OF REPORTPRProgress bocx9323-81-01K14:19:00Z.AMNY38111571-7780ZHZndmd able for patient jzxnCZLCLULLZDPUDL3948-14-16D21:02:48 [facility] 2023-03-18 15:47:00 [id number] XHr8whRutbRzoGn6iHsI9M6uWGFTo hQ+iCRmWAIq76ADBuAGlSmS5TNp2008-70-59I85:47:48983 0-0012 [place] [address] PATIENT NAME: THIERRY MONGE ADMIT DATE: 03/15/23ACCOUNT NO: [id number] ROOM NO: Z347 AGE: 62 REPORT TYPE: ECHOCARDIOGRAM SEX: M ADMITTING PHYSICIAN:Rudy Xiao MD ATTENDING PHYSICIAN:Rudy Xiao MD *[facility]*[address] [place] [address] 51921Uyqdb Transthoracic Echocardiogram Patient: Williams Monge Date: 03/18/2023 BP: 122 / 66 Location: [facility]: [id number] : 1960 Age: 62 Height: 70 in / 177.8 cmAccession#: [id number] Gender: M Weight: 149.7 lb / 68 kgBMI/BSA: 21.5 kg/m 2 / 1.83 m 2 *Ordering Physician: * Omid Tenorio MD *Interpreting Physician: * Omid Tenorio MD*Board Saw Runner: Vick Galdamez Indications: CAD. Study data: Transthoracic echocardiogram. Procedure: Transthoracicechocardiography was performed. Images were obtained using a [employer] cardiacultrasound machine. Image quality was adequate. M-mode, [...] at 1547 PATIENT NAME: THIERRY MONGE :47:0 0.GJM35922810-8934PQQgwcmqsxn for patient ahjrGRYNDCUXCZHDQK5173-47-44G08:48:19 [facility] 2023-03-18 10:16:00 [id number] WJQ7Vw9E8OsQwZ1yKuXvQ3wcMj3La m3qqJFn3RCr7gFB0N8wjylVwQxE9903-93-58A20:16:00 [facility] ([facility])Hospitalist Progress NoteREPORT#:[id number] REPORT STATUS: SignedDATE:03/18/23 TIME: 1016 PATIENT: THIERRY MONGE UNIT #: [id number]#: [id number] [facility] [birth year] AGE: 62 SEX: M ATTEND: Rudy Xiao MDA AUTHOR: Jenny Meyers MD R2 * ALL edits or amendments must be made on the electronic/computer document * Jenny Meyers 03/18/23 1016:SubjectiveChief complaint:SOB, hypotensionHPI:62 yo M with PMH of COPD on 2L NC, Hypertension, Anxiety, Systolic CHF s/p AICD,Afib on xarelto, CVA and dementia presented as a transfer from [facility] for evaluation of shortness of [...] no edemaMusculoskeletal: normal inspection, painless range of motionNeuro/COMMERCIAL SALES CONSULTANT: alert, normal speechSkin: dryPsychiatry: abnl judgment/insight, normal [...] combative without cigarette smoking or nicotine patches.PLAN- Flexo Press Operator on cessation- Cont. nicotine patch Code Status: Full CodeVTE Ppx: RivaroxibanDiet: Cardiac Quality: Gen Med Crit Care VTE ProphylaxisVTE prophylaxis initiated: yes (rivaroxiban) Current MedicationsCurrent medication review:I attest that the foregoing medication list in the medical record is true, accurate, and complete to the best of my knowledge. BMI Screening > 25 or < 18.5BMI status/follow-up: nml BMI,no after school counselor needed AttestationsAttestation needed: teaching physician Rudy Xiao 03/18/23 1743:Attestations Teaching Physician AttestationF/U visit w/ resident:I saw the patient with the resident and . . . agree with the resident's findings and plan.echo unremarkableawait aicd interrogationdvt ppx: on xarelto at 1023 at 1743 RPT #:[id number] OF REPORTPRProgress mkud7351-38-92U02:16:00Z.OMWM48321152-4568CRTnanu able for patient fsugTAAJIXANDSZLKC8139-17-09T82:23:27 [facility] 2023-03-18 06:54:00 [id number] RCTjKkJzC2MO9Q4UQrox5BqejpEFb uy6MFuG6Z4ilGj5s2QRS7XXrsn48421-90-50C59:54:00 [facility] Progress NoteREPORT#:[id number] REPORT STATUS: SignedDATE:03/18/23 TIME: 0654 PATIENT: THIERRY MONGE UNIT #: [id number]#: [id number] [facility] [birth year] AGE: 62 SEX: M ATTEND: Rudy Xiao [facility] AUTHOR: Tyrell Mckeon MD * ALL edits [...] LE assessment: no edemaMusculoskeletal: full range of motionNeuro/COMMERCIAL SALES CONSULTANT: alert, oriented X 3, CN II-XII intactSkin: dry, intactPsychiatry: normal affect, normal judgment/insight, normal mood Diagnosis, Assessment Plan Free Text DxA P NotesFree Text DxA P Notes:IMPRESSION:1. Chronic systolic heart failure.2. Status post Serrano automated implantable cardioverter defibrillator.3. Dyspnea.4. Coronary artery disease.5. Hypertension.6. Dyslipidemia. RECOMMENDATIONS: Continue current medical therapy. Oxygen support as needed. at 1220 RPT #:[id number] OF REPORTPRProgress ghro7147-33-25B25:54:00Z.MGDG76955891-7873JRIsijf able for patient cssdIKHJKBUBZRJWXX5935-47-62W41:20:55 [facility] 20[facility] 13:48:00 [id number]/IHQmu0 hAeTb6e1LdvsX8SgmE71vu+AqZezo OimIaDEMGZmbCzPyG4Lvzbv5muj8992-06-51U01:48:00 [facility] ([facility]DHospitalist Progress NoteREPORT#:[id number] REPORT STATUS: SignedDATE:03/17/23 TIME: 134 PATIENT: THIERRY MONGE UNIT #: [id number]#: [id number] ROOM[facility]ED: [facility]-ADOB: [birth year] AGE: 62 SEX: M ATTEND: Rudy Xiao AUTHOR: Jenny Meyers MD R2 * ALL edits or amendments must be made on the electronic/computer document * Jenny Meyers 03/17/23 1348:SubjectiveChief complaint:SOB, hypotensionHPI:62 yo M with PMH of COPD on 2L NC, Hypertension, Anxiety, Systolic CHF s/p AICD,Afib on xarelto, CVA and dementia presented as a transfer from [facility] for evaluation of shortness of [...] no cyanosisMusculoskeletal: normal inspection, painless range of motionNeuro/COMMERCIAL SALES CONSULTANT: alert, oriented X 3, normal speechSkin: dryPsychiatry: [...] combative without cigarette smoking or nicotine patches.PLAN- Flexo Press Operator on cessation- Cont. nicotine patch Code Status: Full CodeVTE Ppx: RivaroxibanDiet: Cardiac Quality: Gen Med Crit Care VTE ProphylaxisVTE prophylaxis initiated: yes (rivaroxiban) Current MedicationsCurrent medication review:I attest that the foregoing medication list in the medical record is true, accurate, and complete to the best of my knowledge. BMI Screening > 25 or < 18.5BMI status/follow-up: nml BMI,no after school counselor needed AttestationsAttestation needed: teaching physician Rudy Xiao 03/17/23 1405:Attestations Teaching Physician AttestationF/U visit w/ resident:I saw the patient with the resident and . . . agree with the resident's findings and plan. await echo and aicd interrogationcont xareltohas home o2 at 1511 at 0024 RPT #:[id number] OF REPORTPRProgress cpke0007-78-76D13:48:00Z.RGRO06205411-1847FFTluvo able for patient cyskKWDJPFPHPWXKMC0690-36-85H15:11:47 [facility] 2023-03-17 06:38:00 [id number] JVSaz6r8GXFeCbetPZuMcCGeJIcjt quzd0Pv1pjDvCMrRkENm1Mta44k4710-86-96Q12:38:00 [facility] ([facility]INGFIELDCardiology Progress NoteREPORT#:[id number] REPORT STATUS: SignedDATE:03/17/23 TIME: 637 PATIENT: THIERRY MONGE UNIT #: [id number]#: [id number] [facility]GE[facility] 62 SEX: M ATTEND: [...] LE assessment: no edemaMusculoskeletal: full range of motionNeuro/COMMERCIAL SALES CONSULTANT: alert, oriented X 3, CN II-XII intactSkin: [...] (Auto) (14 - 44 %) 3.3 L [place] % (Auto) (4 - 13 %) 3.9 L Eos % (Auto) (0 - 6 %) 0.0 Baso % (Auto) (0 - 2 %) 0.1 Neut # (Auto) (2.0 - 7.6 K/mm3) 9.37 H Lymph # (Auto) (1.0 - 3.8 K/mm3) 0.33 L [place] # (Auto) (0.1 - 0.8 K/mm3) 0.40 [...] Oxygen support as needed. at 1220 RPT #:[id number] OF REPORTPRProgress wdzy7497-21-25H52:38:00Z.ZPIR64459631-3490HEPploa able for patient dlvdHZRHBABVKOSTJF8985-91-13M29:20:45 [facility] 2023-03-16 20:57:00 [id number] vQ7CQhhjUlzua1ZFilOrBNb70uyGf XFNMvDVGDJDRx0jsp4a80ElRC3t4265-21-03M81:57:00 [facility] ([facility]FIELDCardiology Progress NoteREPORT#:[id number] REPORT STATUS: SignedDATE:03/16/23 TIME: 2056 PATIENT: THIERRY MONGE UNIT #: [id number]#: [id number] [facility]GE[facility] 62 SEX: M ATTEND: Rudy Xiao [facility] AUTHOR: Tyrell Mckeon MD * ALL edits [...] 130/61 88 94 03/16 1918 98.8 20 06/28 1900 101 26 96 03/16 1100 85 [...] LE assessment: no edemaMusculoskeletal: full range of motionNeuro/COMMERCIAL SALES CONSULTANT: alert, oriented X 3, CN II-XII intactSkin: [...] (Auto) (14 - 44 %) 3.3 L [place] % (Auto) (4 - 13 %) 3.9 L Eos % (Auto) (0 - 6 %) 0.0 Baso % (Auto) (0 - 2 %) 0.1 Neut # (Auto) (2.0 - 7.6 K/mm3) 9.37 H Lymph # (Auto) (1.0 - 3.8 K/mm3) 0.33 L [place] # (Auto) (0.1 - 0.8 K/mm3) 0.40 [...] Oxygen support as needed. at 0637 RPT #:[id number] OF REPORTPRProgress gcbw0475-08-35F26:57:00Z.GVLM63909252-5830JQKrxmo able for patient drsaEJLBENFJKCEYTB1388-77-19O50:38:10 [facility] 2023-03-16 08:07:00 [id number] EM9G4/UM06JQm9yVnjhWi3dr7ZtKg 8/OWNoD+tKRTiDTLBigAvNMsePm9296-39-86Y75:07:00 [facility] ([facility])Hospitalist Progress NoteREPORT#:[id number] REPORT STATUS: SignedDATE:03/16/23 TIME: 08 PATIENT: THIERRY MONGE UNIT #: [id number]#: [id number] [facility] [birth year] AGE: 62 SEX: M ATTEND: Rudy Xiao AUTHOR: Jenny Meyers MD R2 * ALL edits or amendments must be made on the electronic/computer document * Jenny Meyers 03/16/23 0807:SubjectiveChief complaint:SOB, hypotensionHPI:62 yo M with PMH of COPD on 2L NC, Hypertension, Anxiety, Systolic CHF s/p AICD,Afib on xarelto, CVA and dementia presented as a transfer from [facility] for evaluation of shortness of [...] no edemaMusculoskeletal: normal inspection, painless range of motionNeuro/COMMERCIAL SALES CONSULTANT: alert, oriented X 3, normal speechSkin: dryPsychiatry: [...] combative without cigarette smoking or nicotine patches.PLAN- Flexo Press Operator on cessation- Cont. nicotine patch Code Status: Full CodeVTE Ppx: RivaroxibanDiet: Cardiac Quality: Gen Med Crit Care VTE ProphylaxisVTE prophylaxis initiated: yes (rivaroxiban) Current MedicationsCurrent medication review:I attest that the foregoing medication list in the medical record is true, accurate, and complete to the best of my knowledge. BMI Screening > 25 or < 18.5BMI status/follow-up: nml BMI,no after school counselor needed AttestationsAttestation needed: teaching physician Rudy Xiao 03/16/23 2007:Attestations Teaching Physician AttestationF/U visit w/ resident:I saw the patient with the resident and . . . agree with the resident's findings and plan. echocards folloingaicd interrogationcont xareltohas home o2 at 1416 at 2006 RPT #:[id number] OF REPORTPRProgress lait4651-44-45E28:07:00Z.EJOQ95820364-1819AZKzxum able for patient izksEVTILEQOAPGAJE5775-23-56Y33:17:30 [facility] 2023-03-15 20:17:00 [id number] uAfNSUlt/W9/8l/gCJaumTVLMl/Gq q3j2x+wgonW02X88Qw5KjqEd07e9728-89-15B36:17:88963 8-0001 [place] [address] PATIENT NAME: THIERRY MONGE ADMIT DATE: 03/15/23ACCOUNT NO: [id number] ROOM NO: Z.[facility] AGE: 62 REPORT TYPE: ELECTROCARDIOGRAM SEX: M ADMITTING PHYSICIAN:Rudy Xiao MD ATTENDING PHYSICIAN:Rudy Xiao MD Order:[id number] Reason : CAD Test Date/Time Stamp:TueMar 15 [...] TENORIO at 0734 PATIENT NAME: THIERRY MONGE .[id number] AVAvailable for patient rcjtLQBXSOTAGOBORH0407-20-67Y67:34:54 [facility] 2023-03-15 16:03:00 [id number]/aRyP9 WzJ7KfbdchszOlex5fRsQGC4wSoeF ok+8B3GfLo6ut1yIIJpwCjzXNCv8103-20-50F56:03:10464 7-0101 [place] [address] PATIENT NAME: THIERRY MONGE ADMIT DATE: 03/15/23ACCOUNT NO: [id number] ROOM NO: Z.347 AGE: 62 REPORT TYPE: [...] who presented to the Emergency Room at [facility] in [place] with complaints of increasing shortness of breath. [...] Dictated: 03/15/2023 16:03:59Date Transcribed: 03/15/2023 16:59:18GSP/REQJob #: [id number] ID: [id number] by Tyrell Mckeon MD On 03/15/2023 06:28:21 PM at 0628 PATIENT NAME: THIERRY MONGE :[birth year]:00Z.ID [id number] for patient hdqiLWCOIIPCKXSWIV5942-71-79X30:29:09 [facility] 2023-03-15 10:52:00 [id number]++u l6VNOgvbCcLT8HHpVaUV97T9FG7bi 6sHyW6HQiefdDaXocNIog0d9je41664-41-38S69:52:00 [facility] History PhysicalREPORT#:[id number] REPORT STATUS: SignedDATE:03/15/23 TIME: 105 PATIENT: THIERRY MONGE UNIT #: [id number]#: [id number] [facility] [birth year] AGE: 62 SEX: M ATTEND: Rudy Xiao [facility] AUTHOR: Clare Velazquez PA * ALL edits or amendments must be made on the electronic/computer document * Clare Velazquez 03/15/23 1052:History of Present Illness HPIChief complaint:SOB, hypotension HPI:62 yo M with PMH of COPD on 2L NC, Hypertension, Anxiety, Systolic CHF s/p AICD,Afib on xarelto, CVA and dementia presented as a transfer from [facility] for evaluation of shortness of [...] normal inspection, no muscle spasm, no paraspinal tendernessNeuro/COMMERCIAL SALES CONSULTANT: alert, oriented X 3, normal speech, no [...] (Auto) (1.0 - 3.8 K/mm3) 0.51 L [place] # (Auto) (0.1 - 0.8 K/mm3) 0.10 [...] to arrival here. Will continue with 40mg c8kyNpu tx, scheduled duonebs and budesonide PRN antitussives [...] is alert and oriented x3 #Tobacco abuse after school counselor on cessation. start nicotine patch VTE [...] BMI:Current BMI: 21.6 BMI status/follow-up: nml BMI,no after school counselor needed Rudy Xiao 03/15/23 2233:Attestations Teaching Physician Dytpexcupgi2fq visit w/ resident:I was present with the resident during the history and exam. I discussed the case with the resident and . . . agree with the findings and plan as documented in the resident's note. echocards folloingaicd interrogationcont xareltohas home o2 at 2235 at 2343 RPT #:[id number] OF REPORTHPHistory and physical pfchxiqeemj0525-91-12J22:52:00Z.[id number] AVAvailable for patient banqDUJJCIABJXIYAK5694-10-30D60:35:21 [facility] 2023-03-15 07:02:00 [id number]/TtPnB2 pBIoQuJx3mz4qyjqbdGSU6nWm8Y9D uqB4DtXRj9qIzdlDNuae/j9YXqC2784-16-33G53:02:00 [facility] ([facility]ELDEMERGENCY PROVIDER REPORTREPORT#:[id number] REPORT STATUS: SignedDATE:03/15/23 TIME: 07 PATIENT: THIERRY MONGE UNIT #: [id number]#: [id number] [address] SEX: M PCP PHYS: Undefined ProviderSERVICE AUTHOR: Royce Davison MD LOCATION: [facility] * ALL edits or amendments must be made on the electronic/computer document * See AddendumHPI-General Illness Free Text HPI NotesFree Text HPI Ucggk34-dizv-ktj female past medical history COPD, hypertension, hyperlipidemia, A-fib on [facility]. Complaining of shortness of breath over the [...] Temp 36.9 03/15 05 Pulse 78 03/15 0521 Resp 20 03/15 05 O2 Delivery Nasal cannula 03/15 05 O2 Flow Rate 2 03/15 534 Last [...] (Auto) (1.0 - 3.8 K/mm3) 0.51 L [place] # (Auto) (0.1 - 0.8 K/mm3) 0.10 Eos # (Auto) (0.0 - 0.2 K/mm3) 0.00 Baso # (Auto) (0.0 - 0.2 K/mm3) 0.01 Nucleated RBCs # (Man) (0.0 - 0.1 K/mm3) 0.00 Recent Impressions:RADIOLOGY - XR CHEST 1V 03/15 0647 Report Impression - Status: SIGNED Entered: 03/15/2023 0702 IMPRESSION: No acute radiographic abnormalityImpression By: Leila Cote MD Re-Evaluation MDM Free Text MDM [...] other patients and teaching time. at 1918RPT #:[id number] OF REPORTEDEmergency department ydygxx3760-69-92M97:02:00Z.ERYZ68281200-7229VNBpr ilable for patient xuncVFSQBZLTGOSCBN3431-26-66P66:29:15 [facility] 2020-06-20 06:17:00 MLhbaprwvia81205981S WN3N3BEw9fH/jn6p/kiIucXBelmOx vOOvL6cXf7c8h8L5itm53ojyhDqas54xAr9767-56-82V15:1 7:00 [facility] Progress NoteREPORT#:[id number] REPORT STATUS: SignedDATE:06/20/20 TIME: 616 PATIENT: THIERRY MONGE UNIT #: [id number]#: [id number] [facility]: 59 SEX: M ATTEND: Tyrell Mckeon [facility] AUTHOR: Tyrell Mckeon MD * ALL edits [...] Potassium Chloride 10 MEQ BID PO Ipratropium [place] 0.5 MG RTQ6H INH Cefazolin Sodium 1,000 [...] LE assessment: no edemaMusculoskeletal: full range of motionNeuro/COMMERCIAL SALES CONSULTANT: alert, oriented X 3, CN II-XII intactSkin: [...] % (Auto) (14 - 44 %) 27.8 [place] % (Auto) (4 - 13 %) 8.6 Eos % (Auto) (0 - 6 %) 1.7 Baso % (Auto) (0 - 2 %) 0.6 Neut # (Auto) (2.0 - 7.6 K/mm3) 3.99 Lymph # (Auto) (1.0 - 3.8 K/mm3) 1.82 [place] # (Auto) (0.1 - 0.8 K/mm3) 0.56 [...] right lung apex is excluded from the sqvet-rq-jnrs. No acutecardiopulmonary abnormality is identified.Impression By: Heather Marshall MD Diagnosis, Assessment Plan Free Text DxA P NotesFree Text DxA P Notes:IMP: Chronic systolic heart failure s/p [employer] [place] AICD - single lead PLAN: AICD interrogation d/c home if stable. at 0818 RPT #:[id number] OF REPORTPRProgress Bhzz5836-53-03C72:17:00Z.WZNN08642777-2728OPLkxuy able for patient laetRFIXZBYXLROSVY3202-91-06Y16:18:31 [facility] 2020-06-19 16:03:00 VGukygczkkv45404373C 35oR2ZQBeJ2Ft31HWic6K3BvxPWI1 q0EtXU4eJ+L0taje7ohlrWHVmjMDiKONVU8613-29-55E76:0 3:[id number] [address] PATIENT NAME: THIERRY MONGE ADMIT DATE: 06/19/20ACCOUNT NO: [id number] ROOM NO: Z.354 AGE: 59 REPORT TYPE: OPERATIVE REPORT SEX: M ADMITTING PHYSICIAN:Tyrell Mckeon MD ATTENDING PHYSICIAN:Tyrell Mckeon MD OPERATION DATE: 06/19/2020 PROCEDURES:1. Non-thoracotomy single lead AICD placement.2. Defibrillation threshold testing. PREOPERATIVE DIAGNOSES:1. 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 [place] [employer] class III congestive heart failure. POSTOPERATIVE DIAGNOSES:1. 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 [place] [employer] class III congestive heart failure. SURGEON: Tyrell Mckeon MD LEGAL ADVISOR: None. ANESTHESIA: Local anesthesia with 1% lidocaine [...] pocket was flushed with antibiotic-containing solution. A 7-Greenlandic sheathwas advanced over the wire and left [...] IMPLANT DATA:1. Pulse generator: [employer] Cory model KI2270-60A, serial #[id number]. Right ventricular lead; [employer] Cory model 7120Q/58, serial number [id number]. STIMULATION THRESHOLD DATA: Right ventricle R waves [...] threshold margin.3. No complications. Dictated By: Tyrell cMkeon MD WT: OP:Z.HIM/PEPGR/NTSDD: 06/19/2020 16:03:36DT: 06/19/2020 17:31:17Conf#: [id number]#: [id number] cc: Omid Tenorio MD Authenticated by Tyrell Mckeon MD On 06/23/2020 06:02:06 AM at 0602 PATIENT NAME: THIERRY MONGE vlnzty0588-73-43O21:31:00Z.[id number] lable for patient cmoaDIUEESPLWPQLMT6445-06-47H02:03:33 [facility] 2020-06-19 13:14:00 ORmmuetbqnp82086148S i+3StSxRqCmrVHAWr2ayPWQzZRydf vJ5Mn7Jc5C1j/ZTyTKG2/eZ4Irl1wbEqKT1419-35-57B16:1 4:[id number] [address] PATIENT NAME: THIERRY MONGE ADMIT DATE: 06/19/20ACCOUNT NO: [id number] ROOM NO: Z.354 AGE: 59 REPORT TYPE: ELECTROCARDIOGRAM SEX: M ADMITTING PHYSICIAN:Tyrell Mckeon MD ATTENDING PHYSICIAN:Tyrell Mckeon MD Order:[id number] Reason : CHF Test Date/Time Stamp:TueJun 19 2020 13:14:54Blood Pressure : / mmHGVent. Rate : 060 BPM Atrial Rate : 060 BPM P-R Int : 146 ms QRS Dur : 094 ms QT Int : 430 ms P-R-T Axes : 065 055 070 degrees QTc Int : 430 ms Normal sinus rhythmHIGH VOLTAGES IN PRECORDIAL LEADSNormal ECGNo previous ECGs availableConfirmed by KAREN SAWYER, TIARA ([id number]) on 06/20/2020 11:57:07 AM Referred By: Tyrell Mckeon Confirmed by:TIARA BLUE MD at 1157 PATIENT NAME: THIERRY MONGE .[id number] AVAvailable for patient ilqyCUGDOEFCNEOPIU4446-68-46T66:57:37 [facility]ITALW[facility]
[2024-01-31 16:53] LABS: Arterial Blood Carboxyhemoglob 3.6 % (0-1.5); Blood Gas Oxyhemoglobin 93.9 % (94-97); Blood O2 Saturation 99.1 % (92-98.5)
[2024-01-31 16:57] LABS: ALT/SGPT 19 U/L (16-61); Albumin 2.8 g/dL (3.4-5.0); Albumin/Globulin Ratio 0.9 (1.1-1.8); Alkaline Phosphatase 67 U/L (45-117); Anion Gap 6.4 mEq/L (5.0-15.0); BUN Blood Urea Nitrogen 20 mg/dL (7-18); Bicarbonate 31 mEq/L (21-32); Bilirubin Direct 0.2 mg/dL (0-0.2); Bilirubin Indirect, Calculated 0.5 mg/dL (0.2-0.8); Bilirubin Total 0.7 mg/dL (0.2-1.0); Glomerular Filtration Rate 106 ml/min (=/>90); Glucose Level 116 mg/dL (74-106); Magnesium 1.9 mg/dL (1.6-2.4); NT PRO-BNP 1752 pg/mL (<125); Potassium 4.4 mEq/L (3.5-5.1); Protein, Total 5.8 g/dL (6.4-8.2); Sodium Level 137 mEq/L (136-145); Troponin High Sensitivity 15.8 pg/mL (<58.9)
[2024-01-31 16:59] LABS: AST/SGOT < 10 U/L (15-37)
[2024-01-31] MEDS ORDERED: ONDANSETRON 4 MG/2 ML VIAL IV PRN (17:12)
[2024-01-31] MEDS ORDERED: ACETAMINOPHEN 500 MG TAB PO PRN (17:12)
[2024-01-31] MEDS ORDERED: NICOTINE 21 MG/PAT TD ONE (17:29)
--- NOTE | 2024-01-31 18:09 | RAD REPORT ---
EXAM DESCRIPTION: RAD - Chest Single View - 01/31/2024 5:50 pm CLINICAL HISTORY: SOB Chest pain. COMPARISON: <Comparisons> FINDINGS: Portable technique limits examination quality. The lungs are emphysematous but grossly clear. The heart is normal in size. No displaced fractures.Si ngle lead pacer/defibrillator device. IMPRESSION: Prominent COPD.
[2024-01-31 20:12] VITALS: BMI 21.5
[2024-01-31] MEDS: OLANZapine 2.5 MG TAB PO SCH (21:00)
[2024-01-31] MEDS: APIXABAN 5 MG TABLET PO SCH (21:37)
[2024-01-31 22:05] LABS: Specific Gravity 1.026 (1.005-1.030); Sqamous Epithelial None Seen /HPF (None Seen); Urine Bacteria None Seen /HPF (<20); Urine Bilirubin NEGATIVE (Negative); Urine Blood Negative (Negative); Urine Clarity Clear (Clear); Urine Color Yellow (Yellow); Urine Culture Reflex Order NOT NEEDED; Urine Glucose NEGATIVE (Negative); Urine Ketones NEGATIVE (Negative); Urine Microscopic Reflex YN ORDER UMIC; Urine Nitrite NEGATIVE (Negative); Urine Protein TRACE (Negative); Urine RBC <5 /HPF (None Seen); Urine Urobilinogen Normal (Normal); Urine WBC None Seen /HPF (<5); Urine pH 5.5 (5.0-7.0)
--- NOTE | 2024-02-01 00:06 | P.HP ---
Certification for Inpatient Patient admitted to: Inpatient Practitioner: I am a practitioner with admitting privileges, knowledge of patient current condition, hospital course, and medical plan of care. Services: Services provided to patient in accordance with Admission requirements found in Title 42 Section 412.3 of the Code of Federal Regulations Patient History Date of Service: 01/31/24 Reason for admission: Respiratory failure History of Present Illness: 63-year-old male with history of advanced COPD, chronic tobacco use, HTN, CAD, recurrent COPD exacerbation who presented today after being brought by family member because of increasing lethargy, multiple falls, sleeping all day. He denies any fever or chest pain. Reports shortness of breath, worse with exertion. patient however denies any fever, cough, chest pain. he states he is feeling better after being placed on BiPAP, plan to admit for acute hypoxic respiratory failure, weakness, falls. he was initiated on BiPAP pulmonary consult, he has also been given DuoNebs. Recent hospital admission date 01/09/2024 discharged 01/21/2024 discharged home with home health. He has been home 5 days. He denies having home CPAP at home. ER laboratory evaluation elevated BNP 1752, ABG O2 200, CO2 53, prior admission CTA bilateral pleural effusions, bilateral upper extremity ultrasound Partially occlusive thrombus in the right internal jugular vein/subclavian vein junction and we proximal right subclavian vein, Occlusive heterogeneous hypoechoic thrombus along the distal left subclavian vein. Partially occlusive thrombus along the axillary vein. Normal compressibility and flow along the brachials, radial, and ulnar veins. Cephalic vein is patent and compressible. Occlusive thrombus in the proximal left basilic vein. Patient placed on Eliquis twice daily prior to last discharge Allergies No Known Allergies Allergy (Verified 09/12/23 00:32) Home Medications: Roflumilast [Daliresp*] 500 mcg PO DAILY #0 09/13/23 Fluticasone/Umeclidin/Vilanter [Trelegy Ellipta 100-62.5-25] 1 each IH DAILY 30 Days #1 inhaler 09/15/23 Albuterol Neb [Proventil 0.083% Neb Soln] 2.5 mg IH Q6H 10/17/23 Albuterol Sulfate [Albuterol Sulfate Hfa] 2 puff IH PRN PRN 10/17/23 Benazepril HCl 10 mg PO DAILY 10/17/23 Ipratropium L[place]ax 1 vial.neb IH Q6H PRN 10/17/23 Apixaban [Eliquis] 5 mg PO BID 90 Days #180 tab 01/26/24 Nicotine [Nicoderm*] 21 mg TD DAILY 42 Days #42 patch 01/26/24 Prednisone [Sterapred Ds] 10 mg PO DAILY 4 Days #4 tab 01/26/24 predniSONE [Deltasone*] 10 mg PO BID 4 Days #8 tab 01/26/24 - Past Medical/Surgical History Diabetic: No -: COPD -: Paroxysmal Afib -: HTN -: Tobacco abuse -: TIA -: skull fx -: defibrilator -: Home O2 -: Hx Hyponatremia (Dr. Hargrove/ Dr. Menjivar) -: BUE thromus started eliquis -: Appendectomy -: ICM with AICD Psychosocial/ Personal History: Patient lives with a girlfriend at home - Family History Father -: Diabetes Mother -: Diabetes - Social History Alcohol use: No CD- Drugs: No Caffeine use: Yes Review of Systems Per HPI Physical Examination - Physical Exam General: Alert, Oriented x3, Other (Dyspneic) HEENT: Atraumatic, Normocephalic Neck: Supple, 2+ carotid pulse no bruit Respiratory: Diminished, Other (On BiPAP) Cardiovascular: No edema, Normal pulses Capillary refill: <2 Seconds Gastrointestinal: Normal bowel sounds, Soft and benign Musculoskeletal: No clubbing, No swelling Integumentary: No breakdown, No significant lesion Neurological: Normal speech, Normal strength at 5/5 x4 extr - Studies Laboratory Data (last 24 hrs) 01/31/24 01/31/24 01/31/24 16:12 16:12 16:12 WBC 5.80 RBC 3.59 L Hgb 10.6 L Hct 33.4 L MCV 92.9 MCH 29.4 MCHC 31.6 L RDW 16.5 H Plt Count 225 MPV 8.3 Neutrophils % 84.5 H Lymphocytes % 12.3 L Monocytes % 2.9 L Eosinophils % 0.2 Basophils % 0.1 Absolute Neutrophils 4.9 Absolute Lymphocytes 0.7 Absolute Monocytes 0.2 Absolute Eosinophils 0.0 Absolute Basophils 0.0 PT 11.5 INR 1.05 APTT 27.3 pH pCO2 pO2 HCO3 Base Excess Oxyhemoglobin ABG O2 Sat (Measured) ABG Carboxyhemoglobin ABG Methemoglobin Other Total Hgb Inspired O2 Sodium 137 Potassium 4.4 Chloride 104 Carbon Dioxide 31 Anion Gap 6.4 BUN 20 H Creatinine 0.62 L Est GFR (CKD-EPI) 106 Glucose 116 H Calcium 8.3 L Magnesium 1.9 Total Bilirubin 0.7 Direct Bilirubin 0.2 Indirect Bilirubin 0.5 AST < 10 L ALT 19 Alkaline Phosphatase 67 Troponin I High Sens 15.8 NT-Pro-B Natriuret Pep 1752 H Serum Total Protein 5.8 L Albumin 2.8 L Globulin 3.0 Albumin/Globulin Ratio 0.9 L 01/31/24 16:00 WBC RBC Hgb Hct MCV MCH MCHC RDW Plt Count MPV Neutrophils % Lymphocytes % Monocytes % Eosinophils % Basophils % Absolute Neutrophils Absolute Lymphocytes Absolute Monocytes Absolute Eosinophils Absolute Basophils PT INR APTT pH 7.37 pCO2 53.5 H pO2 200.0 H HCO3 30.0 H Base Excess 4.9 Oxyhemoglobin 93.9 L ABG O2 Sat (Measured) 99.1 H ABG Carboxyhemoglobin 3.6 H ABG Methemoglobin 1.6 H Other Total Hgb 11.0 L Inspired O2 36.0 Sodium Potassium Chloride Carbon Dioxide Anion Gap BUN Creatinine Est GFR (CKD-EPI) Glucose Calcium Magnesium Total Bilirubin Direct Bilirubin Indirect Bilirubin AST ALT Alkaline Phosphatase Troponin I High Sens NT-Pro-B Natriuret Pep Serum Total Protein Albumin Globulin Albumin/Globulin Ratio Assessment and Plan - Plan Assessment plan Acute hypoxic hypercarbic respiratory failure- treatment BiPAP, Pulmonary consult nebs, steroids, oxygen as needed to keep sats greater than 92% Treatment noncompliance with BiPAP, educated patient on compliance Terminal COPD carbon dioxide retention will need close respiratory, oxygen, CO2 monitoring for respiratory failure after discharge will need BiPAP as needed and at bedtime Acute on chronic heart failure Elevated BNP treated with diuretics, antihypertensive, stable EF 55 to 60% Trend BNP Bilateral upper extremity DVTs on p.o. Eliquis, cardiology to eval Tobacco educated on tobacco cessation Nicotine patch Fall Generalized weakness PT eval, fall precaution, ambulate with assist Full code DVT Eliquis Diet cardiac Disposition, home with hospice/HH - Advance Directives Does patient have a Living Will: No Does patient have a Durable POA for Healthcare: No - Code Status/Comfort Care Code Status: Full Code Critical Care: No Time Spent Managing Pts Care (In Minutes): 55
[2024-02-01] MEDS ORDERED: ALBUTEROL 2.5 MG/3 ML NEB SOL ONE (00:59)
[2024-02-01] MEDS ORDERED: IPRATROPIUM BROM 0.5MG/2.5ML ONE (01:00)
[2024-02-01] MEDS: IPRATROPIUM BROM 0.5MG/2.5ML NEB PRN (01:04)
[2024-02-01] MEDS: ALBUTEROL 2.5 MG/3 ML NEB SOL NEB PRN (01:04)
[2024-02-01 03:00] LABS: Absolute Lymphocytes (CBC) 0.3 K/uL (0.7-4.9); Absolute Monocytes 0.1 K/uL (0.1-1.3); Absolute Neutrophil 2.8 K/uL (1.8-8.0); Basophils % 0.8 % (0-1.3); Hematocrit 29.4 % (39.6-49.0); Hemoglobin 9.3 g/dL (13.6-17.9); Lymphocytes % 10.8 % (15.3-44.8); MCH 29.8 pg (27.0-35.0); MCHC 31.8 g/dL (32.0-36.0); MCV 93.7 fL (80-100); MPV 8.7 fL (7.6-11.3); Monocytes % 1.8 % (3.3-12.3); Neutrophils % 86.6 % (41.7-73.7); Platelets 178 thou/uL (152-406); RBC Red Blood Cell Count 3.13 M/uL (4.33-5.43); Red Cell Distribution Width 16.3 % (12.1-15.2)
[2024-02-01 03:13] LABS: Anion Gap 7.5 mEq/L (5.0-15.0); Magnesium 1.9 mg/dL (1.6-2.4); Potassium 4.5 mEq/L (3.5-5.1)
[2024-02-01 04:29] LABS: Band Neutrophils 8 % (0-1); Differential Total Cells Count 100; Lymphocytes 3 % (15-42); Monocytes 0 % (0-10); Segmented Neutrophils 89 % (40-80)
[2024-02-01 04:30] LABS: Blood Morphology Comment NOT SEEN (NOT SEEN); Platelet Estimate ADEQ
--- NOTE | 2024-02-01 08:10 | P.PN ---
Subjective Date of Service: 02/01/24 Chief Complaint: Respiratory failure Admitted for respiratory distress, 98% on 2 L Patient was walking down the stairs to smoke, - Physical Exam General: Alert, Oriented x3, Other (Dyspneic) HEENT: Atraumatic, Normocephalic Neck: Supple, 2+ carotid pulse no bruit Respiratory: Diminished, Other (On BiPAP) Cardiovascular: No edema, Normal pulses Capillary refill: <2 Seconds Gastrointestinal: Normal bowel sounds, Soft and benign Musculoskeletal: No clubbing, No swelling Integumentary: No breakdown, No significant lesion Neurological: Normal speech, Normal strength at 5/5 x4 extr Review of Systems per HPI Physical Examination - Vital Signs Temperature: 98.2 F Blood Pressure: 110/59 Pulse: 75 Respirations: 18 Pulse Ox (%): 98 - Studies Laboratory Data (last 24 hrs) 01/31/24 01/31/24 01/31/24 16:12 16:12 16:12 WBC 5.80 Hgb 10.6 L Hct 33.4 L Plt Count 225 PT 11.5 INR 1.05 APTT 27.3 Sodium 137 Potassium 4.4 BUN 20 H Creatinine 0.62 L Glucose 116 H Magnesium 1.9 Total Bilirubin 0.7 AST < 10 L ALT 19 Alkaline Phosphatase 67 01/31/24 01/31/24 01/31/24 15:48 15:48 15:48 WBC Cancelled Hgb Cancelled Hct Cancelled Plt Count Cancelled PT Cancelled INR Cancelled APTT Sodium Cancelled Potassium Cancelled BUN Cancelled Creatinine Cancelled Glucose Cancelled Magnesium Cancelled Total Bilirubin Cancelled AST Cancelled ALT Cancelled Alkaline Phosphatase Cancelled Assessment And Plan - Plan Assessment plan Acute hypoxic hypercarbic respiratory failure- treatment BiPAP, Pulmonary consult nebs, steroids, oxygen as needed to keep sats greater than 92% wean to 98% on 2L at rest Patient was walking downstairs to smoke, noncompliant with smoking cessation Treatment noncompliance with BiPAP, educated patient on compliance Terminal COPD carbon dioxide retention will need close respiratory, oxygen, CO2 monitoring for respiratory failure after discharge will need BiPAP as needed and at bedtime Acute on chronic heart failure Elevated BNP treated with diuretics, antihypertensive, stable EF 55 to 60% Trend BNP Bilateral upper extremity DVTs on p.o. Eliquis, Tobacco educated on tobacco cessation Nicotine patch Fall Generalized weakness PT eval, fall precaution, ambulate with assist Full code DVT Eliquis Diet cardiac Disposition, home with hospice/HH Discharge Plan: Home - Code Status/Comfort Care Code Status: Full Code Critical Care: No Time Spent Managing PTS Care (In Minutes): 35
[2024-02-01] MEDS: NICOTINE 14 MG/PAT TD SCH (10:11)
[2024-02-01] MEDS: FUROSEMIDE 40 MG/4 ML VIAL IV SCH (10:12)
[2024-02-01] MEDS: dexAMETHasone 10 MG/ML VIAL IV SCH (10:12)
[2024-02-01] MEDS: ALPRAZOLAM 0.5 MG TABLET PO PRN (17:01)
[2024-02-01] MEDS: NICOTINE 21 MG/PAT TD SCH (18:32)
[2024-02-01] MEDS: FENTANYL CITR 100 MCG/2 ML IV ONE (18:32)
[2024-02-01] MEDS ORDERED: HALOPERIDOL LACT 5 MG/ML INJ IV PRN (19:06)
[2024-02-01] MEDS: ESCITALOPRAM 20 MG TAB PO SCH (22:14)
[2024-02-01] MEDS: RIVAROXABAN 15 MG TABLET PO SCH (22:14)
[2024-02-01] MEDS: MELATONIN 5 MG TABLET PO PRN (22:47)
[2024-02-01] MEDS: LEVALBUTEROL 0.63 MG/3 ML NEB NEB PRN (23:04)
[2024-02-02 07:00] LABS: Absolute Lymphocytes (CBC) 0.7 K/uL (0.7-4.9); Absolute Monocytes 0.5 K/uL (0.1-1.3); Absolute Neutrophil 5.9 K/uL (1.8-8.0); Basophils % 0.1 % (0-1.3); Eosinophils % 0.4 % (0-4.4); Hematocrit 30.7 % (39.6-49.0); Hemoglobin 10.1 g/dL (13.6-17.9); Lymphocytes % 9.5 % (15.3-44.8); MCH 30.4 pg (27.0-35.0); MCV 92.2 fL (80-100); MPV 8.2 fL (7.6-11.3); Nucleated Red Blood Cells % 0.1 % (0-0); Platelets 195 thou/uL (152-406); RBC Red Blood Cell Count 3.33 M/uL (4.33-5.43); Red Cell Distribution Width 15.9 % (12.1-15.2)
[2024-02-02 07:22] LABS: Anion Gap 2.7 mEq/L (5.0-15.0); Magnesium 1.8 mg/dL (1.6-2.4); Potassium 3.7 mEq/L (3.5-5.1)
--- NOTE | 2024-02-02 07:53 | P.PN ---
Subjective Date of Service: 02/02/24 Chief Complaint: Respiratory failure Admitted for respiratory distress, 98% on 2 L Patient was walking down the stairs to smoke, - Physical Exam General: Alert, Oriented x3, Other (Dyspneic) HEENT: Atraumatic, Normocephalic Neck: Supple, 2+ carotid pulse no bruit Respiratory: Diminished, Other (On BiPAP) Cardiovascular: No edema, Normal pulses Capillary refill: <2 Seconds Gastrointestinal: Normal bowel sounds, Soft and benign Musculoskeletal: No clubbing, No swelling Integumentary: No breakdown, No significant lesion Neurological: Normal speech, Normal strength at 5/5 x4 extr Physical Examination - Vital Signs Temperature: 97.3 F Blood Pressure: 131/62 Pulse: 70 Respirations: 18 Pulse Ox (%): 97 Assessment And Plan - Plan Assessment plan Acute hypoxic hypercarbic respiratory failure- treatment BiPAP, Pulmonary consult nebs, steroids, oxygen as needed to keep sats greater than 92% wean to 98% on 2L at rest Patient was walking downstairs to smoke, noncompliant with smoking cessation Treatment noncompliance with BiPAP, educated patient on compliance Terminal COPD carbon dioxide retention will need close respiratory, oxygen, CO2 monitoring for respiratory failure after discharge will need BiPAP as needed and at bedtime Acute on chronic heart failure Elevated BNP treated with diuretics, antihypertensive, stable EF 55 to 60% Trend BNP Bilateral upper extremity DVTs on p.o. Eliquis, Tobacco educated on tobacco cessation Nicotine patch Fall Generalized weakness PT eval, fall precaution, ambulate with assist Full code DVT Eliquis Diet cardiac Disposition, home with hospice/
--- NOTE | 2024-02-02 16:40 | P.CNS ---
Date of Consult: 02/01/24 Reason for Consult: Respiratory failure Chief Complaint: Respiratory failure History of Present Illness: Patient is 63 years of age terminal COPD recurrent frequent exacerbations and admissions to the hospital brought in by family members due to increasing let hargy multiple falls excessive sleepiness lanes of dyspnea on exertion weakness does not want to do anything sleeping all the time currently alert responsive emotionally labile Allergies No Known Allergies Allergy (Verified 09/12/23 00:32) Home Medications: Fluticasone/Umeclidin/Vilanter [Trelegy Ellipta 100-62.5-25] 1 each IH DAILY 30 Days #1 inhaler 09/15/23 Albuterol Neb [Proventil 0.083% Neb Soln] 2.5 mg IH Q6H 10/17/23 Albuterol Sulfate [Albuterol Sulfate Hfa] 2 puff IH PRN PRN 10/17/23 Benazepril HCl 10 mg PO DAILY 10/17/23 Ipratropium [place] 1 vial.neb IH Q6H PRN 10/17/23 Apixaban [Eliquis] 5 mg PO BID 90 Days #180 tab 01/26/24 Nicotine [Nicoderm*] 21 mg TD DAILY 42 Days #42 patch 01/26/24 Prednisone [Sterapred Ds] 10 mg PO DAILY 4 Days #4 tab 01/26/24 - Past Medical/Surgical History Diabetic: No -: COPD -: Paroxysmal Afib -: HTN -: Tobacco abuse -: TIA -: skull fx -: defibrilator -: Home O2 -: Hx Hyponatremia (Dr. Hargrove/ Dr. Menjivar) -: BUE thromus started eliquis -: Appendectomy -: ICM with AICD Psychosocial/ Personal History: Patient lives with a girlfriend at home - Family History Father Medical History: Diabetes Mother Medical History: Diabetes - Social History Smoking Status: Current every day smoker Alcohol use: No CD- Drugs: No Caffeine use: No Place of Residence: Home Review of Systems 10-point ROS is otherwise unremarkable General: Weakness Respiratory: Cough, Shortness of Breath Physical Examination Temp Pulse Resp BP Pulse Ox 97.2 F 67 18 120/70 99 02/02/24 12:00 02/02/24 12:00 02/02/24 12:00 02/02/24 12:00 02/02/24 12:00 General: Alert, Oriented x3, Moderate distress Respiratory: Clear to auscultation bilaterally Cardiovascular: No edema, Regular rate/rhythm, Normal S1 S2 Gastrointestinal: Normal bowel sounds, Soft and benign - Problems (1) Chronic respiratory failure with hypoxia Current Visit: No Status: Acute Plan: Patient is 63 years of age terminal COPD recurrent frequent exacerbations recurrent admissions to the hospital he appears to have lost a lot of weight probably underlying significant depression lives by himself with little help being most of the time the underlying significant depression may benefit from an antidepressant loss may be former Roflumilast I have DC'd the medication mild hypercarbia on admission and has NIV and he refuses to wear it patient has a mild normocytic anemia bicarbonate is elevated patient's bicarbonate is elevated add Diamox resume prednisone patient will need scheduled bronchodilators history of as needed added Brovana Pratropium scheduled addition to prednisone 10 mg twice a day (2) Deep venous thrombosis of right upper extremity Current Visit: Yes Status: Acute Plan: Patient is 63 years of age admitted with subclavian vein thrombosis agree with anticoagulation Qualifiers: Affected thrombotic vein of extremity: unspecified vein of extremity (3) Depression Current Visit: Yes Status: Acute Plan: Likely underlying severe depression patient was started on olanzapine also add citalopram avoid Roflumilast add modafinil as a stimulant Qualifiers: Depression Type: major depressive disorder
[2024-02-02] MEDS: CITALOPRAM 10 MG TABLET PO SCH (17:40)
[2024-02-02] MEDS: ARFORMOTEROL TARTRATE 15 MCG/2 ML VIAL.NEB NEB SCH (21:03)
[2024-02-02] MEDS: IPRATROPIUM BROM 0.5MG/2.5ML NEB SCH (21:03)
[2024-02-02] MEDS: predniSONE 10 MG TAB PO SCH (21:39)
[2024-02-02] MEDS: acetaZOLAMIDE 250 MG TAB PO SCH (21:39)
[2024-02-03 03:47] LABS: Absolute Lymphocytes (CBC) 0.6 K/uL (0.7-4.9); Absolute Monocytes 0.3 K/uL (0.1-1.3); Absolute Neutrophil 7.1 K/uL (1.8-8.0); Basophils % 0.6 % (0-1.3); Eosinophils % 0.6 % (0-4.4); Hematocrit 33.6 % (39.6-49.0); Hemoglobin 10.8 g/dL (13.6-17.9); MCH 30.2 pg (27.0-35.0); MCV 94.2 fL (80-100); MPV 8.8 fL (7.6-11.3); Neutrophils % 86.8 % (41.7-73.7); Platelets 197 thou/uL (152-406); RBC Red Blood Cell Count 3.57 M/uL (4.33-5.43); Red Cell Distribution Width 16.2 % (12.1-15.2)
[2024-02-03 04:08] LABS: Anion Gap 4.4 mEq/L (5.0-15.0); Magnesium 1.8 mg/dL (1.6-2.4); Potassium 4.4 mEq/L (3.5-5.1)
[2024-02-03] MEDS: modafiniL 100 MG TAB PO SCH (10:05)
[2024-02-03] MEDS: MAGNESIUM SULFATE 1 gm IVPB 1 GM/100 ML BAG IV ONE (10:05)
--- NOTE | 2024-02-03 14:14 | P.PN ---
Subjective Date of Service: 02/03/24 Chief Complaint: Respiratory failure Admitted for respiratory distress, 98% on 2 L Patient was walking down the stairs to smoke, - Physical Exam General: Alert, Oriented x3, Other (Dyspneic) HEENT: Atraumatic, Normocephalic Neck: Supple, 2+ carotid pulse no bruit Respiratory: Diminished, Other (On BiPAP) Cardiovascular: No edema, Normal pulses Capillary refill: <2 Seconds Gastrointestinal: Normal bowel sounds, Soft and benign Musculoskeletal: No clubbing, No swelling Integumentary: No breakdown, No significant lesion Neurological: Normal speech, Normal strength at 5/5 x4 extr Review of Systems per HPI Physical Examination - Vital Signs Temperature: 97.3 F Blood Pressure: 131/62 Pulse: 70 Respirations: 18 Pulse Ox (%): 97 Assessment And Plan - Plan Assessment plan Acute hypoxic hypercarbic respiratory failure- treatment BiPAP, Pulmonary consult nebs, steroids, oxygen as needed to keep sats greater than 92% wean to 98% on 2L at rest Patient was walking downstairs to smoke, noncompliant with smoking cessation Treatment noncompliance with BiPAP, educated patient on compliance Terminal COPD carbon dioxide retention will need close respiratory, oxygen, CO2 monitoring for respiratory failure after discharge will need BiPAP as needed and at bedtime Acute on chronic heart failure Elevated BNP treated with diuretics, antihypertensive, stable EF 55 to 60% Trend BNP Bilateral upper extremity DVTs on p.o. Eliquis, Tobacco educated on tobacco cessation Nicotine patch Fall Generalized weakness PT eval, fall precaution, ambulate with assist Full code DVT Eliquis Diet cardiac Disposition, home with hospice/ Discharge Plan: [facility] Critical Care: No Time Spent Managing PTS Care (In Minutes): 35
--- NOTE | 2024-02-03 14:46 | EKG ---
Test Date: 2024-01-31 Test Time: 16:14:10 Medical Office Receptionist: NAI MEASUREMENT RESULTS: Intervals: Rate: 75 KS: 132 QRSD: 86 QT: 400 QTc: 446 [place]: P: 81 KS: 132 QRS: 85 T: 89 INTERPRETIVE STATEMENTS: Normal sinus rhythm Normal ECG Compared to ECG 01/09/2024 21:08:05 Sinus tachycardia no longer present Electronically Signed On 02-03-24 14:39:28 CDT by Ric Pandya
[2024-02-04 03:08] LABS: Absolute Basophils 0.1 K/uL (0-0.5); Absolute Lymphocytes (CBC) 0.8 K/uL (0.7-4.9); Absolute Monocytes 0.5 K/uL (0.1-1.3); Absolute Neutrophil 6.1 K/uL (1.8-8.0); Basophils % 0.8 % (0-1.3); Eosinophils % 0.6 % (0-4.4); Hematocrit 34.5 % (39.6-49.0); Lymphocytes % 11.2 % (15.3-44.8); MCHC 31.9 g/dL (32.0-36.0); MCV 94.2 fL (80-100); MPV 8.5 fL (7.6-11.3); Monocytes % 6.4 % (3.3-12.3); Platelets 213 thou/uL (152-406); RBC Red Blood Cell Count 3.66 M/uL (4.33-5.43); Red Cell Distribution Width 16.2 % (12.1-15.2)
[2024-02-04 03:31] LABS: Albumin 2.9 g/dL (3.4-5.0); Anion Gap 5.5 mEq/L (5.0-15.0); Magnesium 2.3 mg/dL (1.6-2.4); Phosphorus 3.8 mg/dL (2.5-4.9); Potassium 4.5 mEq/L (3.5-5.1)
--- NOTE | 2024-02-04 07:03 | P.PN ---
Subjective Date of Service: 02/04/24 Chief Complaint: Respiratory failure Admitted for respiratory distress, 98% on 2 L Patient was walking down the stairs to smoke, Lasix 40, spironolactone 25 ordered daily for elevated BNP - Physical Exam General: Alert, Oriented x3, Other (Dyspneic) HEENT: Atraumatic, Normocephalic Neck: Supple, 2+ carotid pulse no bruit Respiratory: Diminished, Other (On BiPAP) Cardiovascular: No edema, Normal pulses Capillary refill: <2 Seconds Gastrointestinal: Normal bowel sounds, Soft and benign Musculoskeletal: No clubbing, No swelling Integumentary: No breakdown, No significant lesion Neurological: Normal speech, Normal strength at 5/5 x4 extr Review of Systems Per HPI Physical Examination - Vital Signs Temperature: 96.9 F Blood Pressure: 138/74 Pulse: 80 Respirations: 18 Pulse Ox (%): 99 Assessment And Plan - Plan Assessment plan Acute hypoxic hypercarbic respiratory failure- treatment BiPAP, Pulmonary consult nebs, steroids, oxygen as needed to keep sats greater than 92% wean to 98% on 2L at rest Patient was walking downstairs to smoke, noncompliant with smoking cessation Treatment noncompliance with BiPAP, educated patient on compliance Terminal COPD carbon dioxide retention will need close respiratory, oxygen, CO2 monitoring for respiratory failure after discharge will need BiPAP as needed and at bedtime Acute on chronic heart failure Elevated BNP treated with diuretics, antihypertensive, stable EF 55 to 60% Trend BNP Lasix 40 spironolactone 25 daily ordered for elevated BNP Bilateral upper extremity DVTs on p.o. Eliquis, CTA of the chest was negative for PE Tobacco educated on tobacco cessation Nicotine patch Fall Generalized weakness PT eval, fall precaution, ambulate with assist Full code DVT Eliquis Diet cardiac Disposition, home with hospice/ [facility]charge Plan: [facility] Critical Care: No Time Spent Managing PTS Care (In Minutes): 35
--- NOTE | 2024-02-04 08:48 | P.PN ---
Subjective Date of Service: 02/04/24 Chief Complaint: COPD exacerbation significant depression Patient stated that he is feeling a little better very weak ambulating Review of Systems General: Weakness Respiratory: Shortness of Breath Neurological: Weakness Physical Examination - Vital Signs Temperature: 97.6 F Blood Pressure: 128/80 Pulse: 80 Respirations: 18 Pulse Ox (%): 99 - Physical Exam General: Alert, Oriented x3 HEENT: Atraumatic Respiratory: Clear to auscultation bilaterally, Diminished Assessment And Plan - Current Problems (Diagnosis) (1) Chronic respiratory failure with hypoxia Current Visit: No Status: Acute Plan: Patient has chronic respiratory failure continue with bronchodilator therapy labs reviewed bicarbonate is declining medication list reviewed no change patient's oxygenation has improved (2) Deep venous thrombosis of right upper extremity Current Visit: Yes Status: Acute Plan: Patient is 63 years of age admitted with subclavian vein thrombosis agree with anticoagulation Qualifiers: Affected thrombotic vein of extremity: unspecified vein of extremity (3) Depression Current Visit: Yes Status: Acute Plan: I suspect that he has significant depression Qualifiers: Depression Type: major depressive disorder
[2024-02-04] MEDS: FUROSEMIDE 40 MG TABLET PO SCH (09:50)
[2024-02-04] MEDS: SPIRONOLACTONE 25 MG TABLET PO SCH (09:51)
[2024-02-05 07:15] LABS: Albumin 2.9 g/dL (3.4-5.0); Anion Gap 6.2 mEq/L (5.0-15.0); Magnesium 2.2 mg/dL (1.6-2.4); Phosphorus 3.6 mg/dL (2.5-4.9); Potassium 4.2 mEq/L (3.5-5.1)
--- NOTE | 2024-02-05 09:55 | P.PN ---
Subjective Date of Service: 02/05/24 Chief Complaint: Respiratory failure Admitted for respiratory distress, 98% on 2 L Patient was walking down the stairs to smoke, On diuretics for elevated BNP - Physical Exam General: Alert, Oriented x3, Other (Dyspneic) HEENT: Atraumatic, Normocephalic Neck: Supple, 2+ carotid pulse no bruit Respiratory: Diminished, Other (On BiPAP) Cardiovascular: No edema, Normal pulses Capillary refill: <2 Seconds Gastrointestinal: Normal bowel sounds, Soft and benign Musculoskeletal: No clubbing, No swelling Integumentary: No breakdown, No significant lesion Neurological: Normal speech, Normal strength at 5/5 x4 extr Review of Systems per HPI Physical Examination - Vital Signs Temperature: 96.9 F Blood Pressure: 138/74 Pulse: 80 Respirations: 18 Pulse Ox (%): 99 Assessment And Plan - Plan Assessment plan Acute hypoxic hypercarbic respiratory failure- treatment BiPAP, Pulmonary consult nebs, steroids, oxygen as needed to keep sats greater than 92% wean to 98% on 2L at rest Patient was walking downstairs to smoke, noncompliant with smoking cessation Treatment noncompliance with BiPAP, educated patient on compliance Terminal COPD carbon dioxide retention will need close respiratory, oxygen, CO2 monitoring for respiratory failure after discharge will need BiPAP as needed and at bedtime Acute on chronic heart failure Elevated BNP treated with diuretics, antihypertensive, stable EF 55 to 60% Trend BNP Lasix 40 spironolactone 25 daily ordered for elevated BNP Bilateral upper extremity DVTs on p.o. Eliquis, CTA of the chest was negative for PE Tobacco educated on tobacco cessation Nicotine patch Fall Generalized weakness PT eval, fall precaution, ambulate with assist Full code DVT Eliquis Diet cardiac Disposition, home with hospice/ Discharge Plan: Jail - Code Status/Comfort Care Code Status: Full Code Critical Care: No Time Spent Managing PTS Care (In Minutes): 35
[2024-02-05] MEDS: RIVAROXABAN 15 MG TABLET PO SCH (20:14)
[2024-02-06 08:05] LABS: Albumin 3.1 g/dL (3.4-5.0); Anion Gap 6.2 mEq/L (5.0-15.0); Magnesium 2.4 mg/dL (1.6-2.4); Potassium 4.2 mEq/L (3.5-5.1)
--- NOTE | 2024-02-06 09:15 | P.PN ---
Subjective Date of Service: 02/06/24 Chief Complaint: Respiratory failure Subjective: Tolerating diet, Other (agreeable to inpatient rehab) <Ila Lal - Last Filed: 02/06/24 09:16> Date of Service: 02/06/24 <Emilee Alvarado - Last Filed: 02/06/24 12:45> Review of Systems 10-point ROS is otherwise unremarkable General: Weakness, As per HPI Respiratory: SOB with Excertion, Wheezing, As per HPI Musculoskeletal: As per HPI Neurological: As per HPI <Ila Lal - Last Filed: 02/06/24 09:16> Physical Examination - Vital Signs Temperature: 97.1 F Blood Pressure: 140/81 Pulse: 95 Respirations: 20 Pulse Ox (%): 97 - Physical Exam General: Alert, In no apparent distress, Oriented x3 HEENT: Atraumatic, Normocephalic Neck: Supple Respiratory: Normal air movement, Expiratory wheezes (right upper) Cardiovascular: Normal pulses Capillary refill: <2 Seconds Gastrointestinal: Normal bowel sounds, Soft and benign Musculoskeletal: No swelling Integumentary: No rashes Neurological: Normal speech Lymphatics: No axilla or inguinal lymphadenopathy External genitalia: Deferred Rectal: Deferred - Studies Microbiology Data (last 24 hrs): 01/31/24 16:12 Blood - Blood Aerobic Blood Culture - Final No growth in 5 days. 01/31/24 16:12 Blood - Blood Anaerobic Blood Culture - Final No growth in 5 days. <Ila Lal - Last Filed: 02/06/24 09:16> - Studies Microbiology Data (last 24 hrs): 01/31/24 16:12 Blood - Blood Aerobic Blood Culture - Final No growth in 5 days. 01/31/24 16:12 Blood - Blood Anaerobic Blood Culture - Final No growth in 5 days. <Emilee Alvarado - Last Filed: 02/06/24 12:45> Assessment And Plan - Plan Assessment plan Acute hypoxic hypercarbic respiratory failure- treatment BiPAP, 02/06/24 weaned to O2 via N/C Dr. Cedillo following nebs, steroids, oxygen as needed to keep sats greater than 92% Treatment noncompliance with BiPAP, educated patient on compliance Terminal COPD carbon dioxide retention will need close respiratory, oxygen, CO2 monitoring for respiratory failure after discharge will need BiPAP as needed and at bedtime Acute on chronic heart failure Elevated BNP treated with diuretics, antihypertensive, stable EF 55 to 60% Trend BNP Bilateral upper extremity DVTs on p.o. Eliquis, cardiology to eval Tobacco educated on tobacco cessation Nicotine patch Fall Generalized weakness PT eval, fall precaution, ambulate with assist 02/06/24 Pt agreeable to inpatient rehab Full code DVT Eliquis Diet cardiac <Ila Lal - Last Filed: 02/06/24 09:16> - Plan Pt seen and examined. I agree with the note by PARIMUTUEL CLERK. He is using oxygen as needed. We encouraged him to quit smoking. Pulm is following.Pt has agreed to go to inpatient rehab. <Emilee Alvarado - Last Filed: 02/06/24 12:45>
[2024-02-07 09:24] VITALS: O2SAT 99
[2024-02-07 12:39] VITALS: BP 151/88; TEMP 97.9
--- NOTE | 2024-02-07 14:55 | P.DS ---
Admission Date: 01/31/24 Discharge Date: 02/07/24 Disposition: TRANSFER TO [facility] Discharge Condition: GOOD Reason for Admission: Respiratory failure Brief History of Present Illness: 63-year-old male with history of advanced COPD, chronic tobacco use, HTN, CAD, recurrent COPD exacerbation who presented today after being brought by family member because of increasing lethargy, multiple falls, sleeping all day. He denies any fever or chest pain. Reports shortness of breath, worse with exertion. patient however denies any fever, cough, chest pain. he states he is feeling better after being placed on BiPAP, plan to admit for acute hypoxic respiratory failure, weakness, falls. he was initiated on BiPAP pulmonary consult, he has also been given DuoNebs. Recent hospital admission date 01/09/2024 discharged 01/21/2024 discharged home with home health. He has been home 5 days. He denies having home CPAP at home. ER laboratory evaluation elevated BNP 1752, ABG O2 200, CO2 53, prior admission CTA bilateral pleural effusions, bilateral upper extremity ultrasound Partially occlusive thrombus in the right internal jugular vein/subclavian vein junction and we proximal right subclavian vein, Occlusive heterogeneous hypoechoic thrombus along the distal left subclavian vein. Partially occlusive thrombus along the axillary vein. Normal compressibility and flow along the brachials, radial, and ulnar veins. Cephalic vein is patent and compressible. Occlusive thrombus in the proximal left basilic vein. Patient placed on Eliquis twice daily prior to last discharge Hospital Course: Pt is a 63yo male with past medical history of advanced COPD, chronic tobacco use, HTN, and CAD who presented with increasing lethargy, SOB with exertion, multiple falls, sleeping all day. He denied any fever, cough, chest pain. On admission, pt was hypoxic. H felt better after using the BIPAP. Pt was admitted for acute resp failure due to COPD exacerbation. Of note, pt was discharged with home health during last hospitalization. Lab studies show elevated BNP 1752, ABG O2 200, CO2 53. We admitted pt and continue steroid, duoneb and prn BIPAP. We consulted Pulmonology. Pt did not use BIPAP during this admission. He used 2L BNC as needed and spent most of the time going outside to smoke. Pt was accepted to SNF and he was in NAD prior to discharge. Vital Signs/Physical Exam: Temp Pulse Resp BP Pulse Ox 97.9 F 100 H 16 151/88 H 97 02/07/24 12:00 02/07/24 12:00 02/07/24 12:00 02/07/24 12:00 02/07/24 12:00 Laboratory Data at Discharge: WBC 7.50 thou/uL (4.3-10.9) 02/04/24 02:30 Hgb 11.0 g/dL (13.6-17.9) L 02/04/24 02:30 Hct 34.5 % (39.6-49.0) L 02/04/24 02:30 Plt Count 213 thou/uL (152-406) 02/04/24 02:30 PT 11.5 SECONDS (9.5-12.5) 01/31/24 16:12 INR 1.05 01/31/24 16:12 APTT 27.3 SECONDS (24.3-36.9) 01/31/24 16:12 Sodium 136 mEq/L (136-145) 02/06/24 06:57 Potassium 4.2 mEq/L (3.5-5.1) 02/06/24 06:57 BUN 35 mg/dL (7-18) H 02/06/24 06:57 Creatinine 0.71 mg/dL (0.70-1.30) 02/06/24 06:57 Glucose 116 mg/dL (74-106) H 02/06/24 06:57 Phosphorus 4.0 mg/dL (2.5-4.9) 02/06/24 06:57 Magnesium 2.4 mg/dL (1.6-2.4) 02/06/24 06:57 Total Bilirubin 0.7 mg/dL (0.2-1.0) 01/31/24 16:12 AST < 10 U/L (15-37) L 01/31/24 16:12 ALT 19 U/L (16-61) 01/31/24 16:12 Alkaline Phosphatase 67 U/L (45-117) 01/31/24 16:12 Home Medications: Fluticasone/Umeclidin/Vilanter [Trelegy Ellipta 100-62.5-25] 1 each IH DAILY 30 Days #1 inhaler 09/15/23 Albuterol Neb [Proventil 0.083% Neb Soln] 2.5 mg IH Q6H 10/17/23 Albuterol Sulfate [Albuterol Sulfate Hfa] 2 puff IH PRN PRN 10/17/23 Benazepril HCl 10 mg PO DAILY 10/17/23 Ipratropium [place] 1 vial.neb IH Q6H PRN 10/17/23 Apixaban [Eliquis] 5 mg PO BID 90 Days #180 tab 01/26/24 Citalopram [Celexa*] 10 mg PO DAILY 30 Days #30 tab 02/07/24 Nicotine [Nicoderm*] 21 mg TD DAILY 42 Days #42 patch 02/07/24 Spironolactone [Aldactone*] 25 mg PO DAILY 30 Days #30 tab 02/07/24 modafiniL [Provigil*] 100 mg PO DAILY 30 Days #30 tab 02/07/24 predniSONE [Deltasone*] 10 mg PO BID 30 Days #60 tab 02/07/24 New Medications: Spironolactone [Aldactone*] 25 mg PO DAILY 30 Days #30 tab Citalopram [Celexa*] 10 mg PO DAILY 30 Days #30 tab predniSONE [Deltasone*] 10 mg PO BID 30 Days #60 tab Nicotine [Nicoderm*] 21 mg TD DAILY 42 Days #42 patch modafiniL [Provigil*] 100 mg PO DAILY 30 Days #30 tab Physician Discharge Instructions: Continue ad dione activity. Take home meds as prescribed. Follow up with PCP and Pulm within 2 - 3 weeks Diet: AHA Activity: Ad dione Followup: Dameon Cedillo MD [ACTIVE - CAN ADMIT] - NONE,NONE [Primary Care Provider] -
== END 2024-02-07 16:43 | DRG 189 ==
LOC: ER 15:43 → 2ND 17:10 → ERHOLD 18:39 → UNDOADMIN 18:39 → 2ND 19:03 → ERHOLD 19:03 → 2ND 02-01 15:18
PROVIDERS: ADMIT Hospitalist; ATTEND Hospitalist
PROC: 4A033R1 Measurement of Arterial Saturation, Peripheral, Percutaneous Approach (ICD-10-PCS; principal; 2024-01-31)
PROC: 5A09557 Assistance with Respiratory Ventilation, Greater than 96 Consecutive Hours, Continuous Positive Airway Pressure (ICD-10-PCS; 2024-01-31)
DX: J96.21 Acute and chronic respiratory failure with hypoxia (principal); J44.1 Chronic obstructive pulmonary disease with (acute) exacerbation; I82.621 Acute embolism and thrombosis of deep veins of right upper extremity; J96.22 Acute and chronic respiratory failure with hypercapnia; I11.0 Hypertensive heart disease with heart failure; I50.9 Heart failure, unspecified; I48.0 Paroxysmal atrial fibrillation; E78.5 Hyperlipidemia, unspecified; F32.9 Major depressive disorder, single episode, unspecified; D64.9 Anemia, unspecified; I25.2 Old myocardial infarction; I25.10 Atherosclerotic heart disease of native coronary artery without angina pectoris; F17.210 Nicotine dependence, cigarettes, uncomplicated; R29.6 Repeated falls; Z60.2 Problems related to living alone; Z95.0 Presence of cardiac pacemaker; Z71.6 Tobacco abuse counseling; Z91.81 History of falling; Z90.49 Acquired absence of other specified parts of digestive tract; Z86.73 Personal history of transient ischemic attack (TIA), and cerebral infarction without residual deficits; Z79.01 Long term (current) use of anticoagulants; Z79.52 Long term (current) use of systemic steroids; Z79.899 Other long term (current) drug therapy; Z91.199 Patient's noncompliance with other medical treatment and regimen due to unspecified reason; Z86.718 Personal history of other venous thrombosis and embolism
CPT/HCPCS: 36415; 36600; 71045; 80048; 80069; 80076; 81001; 82805; 83605; 83735; 83880; 84484; 85025; 85610; 85730; 86850; 86900; 86901; 87040; 93005; 94660; 94760; 96365; 96366; 96375; 97116; 97161; 97530; 99285; J1100; J1940; J2919; J3010; J3475; J7030; J7040; J7512; J7605; J7613; J7614; J7644

== ENCOUNTER 2024-09-04 18:22 | Inpatient (IN) | payer OTHER ==
[2024-09-04 19:27] LABS: Absolute Lymphocytes (CBC) 0.2 K/uL (0.7-4.9); Absolute Monocytes 0.4 K/uL (0.1-1.3); Absolute Neutrophil 6.4 K/uL (1.8-8.0); Basophils % 0.2 % (0-1.3); Hematocrit 29.8 % (39.6-49.0); Hemoglobin 9.4 g/dL (13.6-17.9); Lymphocytes % 2.9 % (15.3-44.8); MCH 30.9 pg (27.0-35.0); MCHC 31.6 g/dL (32.0-36.0); MPV 9.4 fL (7.6-11.3); Monocytes % 5.5 % (3.3-12.3); Neutrophils % 91.4 % (41.7-73.7); Platelets 147 thou/uL (152-406); RBC Red Blood Cell Count 3.04 M/uL (4.33-5.43); Red Cell Distribution Width 15.8 % (12.1-15.2)
[2024-09-04 19:32] LABS: SARS-CoV-2 Antigen CONTROL BLUE LINE VIS/BG OK; SARS-CoV-2 Antigen Rapid Res Negative (Negative)
--- NOTE | 2024-09-04 19:35 | EDPHYS ---
Physician Documentation [facility] Name: Juan C Monge Age: 64 yrs Sex: Male : 1960 Arrival Date: 09/04/2024 Time: 18:22 Bed 6 Private MD: ED Physician Genaro England HPI: 09/04 18:27 This 64 yrs old Male presents to ER via Unassigned with complaints of sob. rn 18:27 The patient has shortness of breath at rest, with light activity. Onset: The rn symptoms/episode began/occurred at an unknown time. Severity of symptoms: At their worst the symptoms were severe in the emergency department the symptoms have improved. The patient has experienced similar episodes in the past. EMS reports found on couch Unresponsive, oxygen less than 50%. Patient denies any fever or chills. Reports increased shortness of breath recently. On home oxygen.. Historical: - Allergies: 18:35 No Known Allergies; ss - PMHx: 18:35 COPD; CVA; Hyperlipidemia; Hypertension; Myocardial infarction; skull fracture; ss - PSHx: 18:35 Appendectomy; pacemaker; ss - Immunization history:: Adult Immunizations unknown. - Infectious Disease History:: Denies. - Family history:: not pertinent. - Hospitalizations: : No recent hospitalization is reported. - Social history:: Smoking status: Patient/guardian denies using tobacco. ROS: 18:27 Constitutional: Negative for fever, chills, and weight loss, Cardiovascular: Negative rn for chest pain, palpitations, and edema, Respiratory: Positive for shortness of breath and cough with wheezing Abdomen/GI: Negative for abdominal pain, nausea, vomiting, diarrhea, and constipation, MS/Extremity: Negative for injury and deformity, Skin: Negative for injury, rash, and discoloration, Neuro: Negative for headache, weakness, numbness, tingling, and seizure, Exam: 18:27 Constitutional: Thin male, cachectic, awake and alert answering questions sport internship: Tachycardic, regular Respiratory: Moderate tachypnea with shallow breathing and prolonged expiratory phase Abdomen/GI: Scaphoid abdomen Skin: No cyanosis 19:49 ECG was reviewed by the Attending Physician. rn Vital Signs: 18:29 BP 107 / 64; Pulse 105; Resp 33; Temp 98(TE); Pulse Ox 64% on R/A; Height 6 ft. 0 in. ; ss 18:37 Pulse Ox 87% on 4 lpm NC; ss 18:56 BP 119 / 53; Pulse 94; Resp 26; Pulse Ox 93% on 4 lpm NC; ko1 21:31 BP 125 / 66; Pulse 113; Resp 17; Pulse Ox 90% on NC; FiO2 3 %; Pain 0/10; br2 09/05 00:26 Weight 54.88 kg; ha1 03:37 BP 108 / 77; Pulse 113; Resp 18; Pulse Ox 94% on 3 lpm NC; br2 04:14 BP 107 / 63; Pulse 126; Resp 33; Pulse Ox 95% on 2 lpm NC; aa10 21:31 Pain Scale: Adult br2 MDM: 09/04 18:23 Medical Screening Exam initiated rn 19:34 Differential diagnosis: Chronic Obstructive Pulmonary Disease pneumonia, Pneumothorax rn pulmonary edema. Data reviewed: vital signs, nurses notes, lab test result(s), EKG, radiologic studies, plain films, and as a result, I will admit patient. Consideration of Admission/Observation Patient was admitted/placed on observation. Escalation of care including admission/observation considered. Care significantly affected by the following chronic conditions: Chronic Obstructive Pulmonary Disease. Counseling: I had a detailed discussion with the patient and/or guardian regarding the historical points, exam findings, and any diagnostic results supporting the discharge/admit diagnosis, lab results, radiology results, the need for further work-up and treatment in the hospital. Response to treatment: the patient's symptoms have mildly improved after treatment, and as a result, I will admit patient. ED course: I personally spent 35 minutes engaged in work directly related to the individual patient's care. This does not include any time spent performing procedures. The patient has been deemed critically ill because of severe COPD exacerbation with oxygen saturation less than 50% with altered mental status and decreased responsiveness.. 09/04 18:24 Order name: Blood Culture Adult (2) rn 09/04 18:24 Order name: CBC with Diff; Complete Time: 03:26 rn 09/04 18:24 Order name: CMP; Complete Time: 20:21 rn 09/04 18:24 Order name: Lactate w/ 2H reflex if indic.; Complete Time: 20: rn 09/04 18:24 Order name: Protime (+inr); Complete Time: 20:21 rn 09/04 18:24 Order name: Ptt, Activated; Complete Time: 20:21 rn 09/04 18:24 Order name: Flu; Complete Time: 19:33 rn 09/04 18:24 Order name: SARS-COV-2 Antigen Rapid; Complete Time: 19:33 rn 09/04 19:48 Order name: Ghost Lactate-NO COLLECT Timer; Complete Time: 03:26 EDMS 09/04 20:02 Order name: Urinalysis w/ reflexes EDMS 09/04 20:02 Order name: CBC with Automated Diff EDMS 09/04 20:02 Order name: CBC with Automated Diff; Complete Time: 05:39 EDMS 09/04 20:02 Order name: Comprehensive Metabolic Panel EDMS 09/04 20:02 Order name: Comprehensive Metabolic Panel; Complete Time: 05:39 EDMS 09/04 20:02 Order name: Magnesium EDMS 09/04 20:02 Order name: Magnesium; Complete Time: 05:39 EDMS 09/04 20:02 Order name: Phosphorus EDMS 09/04 20:02 Order name: Phosphorus; Complete Time: 05:39 EDMS 09/04 20:42 Order name: CBC Smear Scan; Complete Time: 03:26 EDMS 09/04 22:47 Order name: Lactate Sepsis 2 HR Follow-up; Complete Time: 03:26 EDMS 09/05 05:07 Order name: Troponin High Sensitivity; Complete Time: 05:39 EDMS 09/05 06:25 Order name: CBC with Automated Diff EDMS 09/05 06:36 Order name: ABG Arterial Blood Gas EDMS 09/05 06:38 Order name: Protime (+INR) EDMS 09/05 06:48 Order name: PTT, Activated Partial Thromb EDMS 09/05 10:42 Order name: PTT, Activated Partial Thromb EDMS 09/05 10:49 Order name: Troponin High Sensitivity EDMS 09/05 12:23 Order name: Glucose, Ancillary Testing EDMS 09/04 18:24 Order name: Chest Single View XRAY; Complete Time: 20:21 rn 09/04 18:24 Order name: BIPAP rn 09/04 18:24 Order name: EKG; Complete Time: 18:24 rn 09/04 18:24 Order name: Accucheck; Complete Time: 19:22 rn 09/04 18:24 Order name: Cardiac monitoring; Complete Time: 19:02 rn 09/04 18:24 Order name: EKG - Nurse/Tech; Complete Time: 19:02 rn 09/04 18:24 Order name: IV Saline Lock - Large Bore; Complete Time: 18:45 rn 09/04 18:24 Order name: Labs collected and sent; Complete Time: 19:22 rn 09/04 18:24 Order name: O2 Per Protocol; Complete Time: 18:45 rn 09/04 18:24 Order name: O2 Sat Monitoring; Complete Time: 18:45 rn 09/04 18:24 Order name: Vital Signs; Complete Time: 18:45 rn EC:49 Rate is 101 beats/min. Rhythm is regular. QRS [place] is Normal. NV interval is normal. rn QRS interval is normal. QT interval is normal. No Q waves. T waves are Normal. No ST changes noted. Clinical impression: Sinus tachycardia. Interpreted by me. Reviewed by me. Administered Medications: 20:44 Drug: NS 0.9% IV 1000 ml IV at 1000 ml once; to be given as a bolus over 60 minutes br2 Route: IV; Rate: 1000 ml; Site: right antecubital; 21:45 Follow up: Response: No adverse reaction; IV Status: Completed infusion; IV Intake: br2 1000ml 20:45 Drug: MethylPrednisoLONE IVP 125 mg IVP once Route: IVP; Site: right antecubital; br2 21:15 Follow up: Response: No adverse reaction br2 20:45 Drug: Levalbuterol Inhalation 1.25 mg Inhalation once Route: Inhalation; br2 21:15 Follow up: Response: No adverse reaction br2 20:45 Drug: Levalbuterol Inhalation 1.25 mg Inhalation once Route: Inhalation; br2 21:15 Follow up: Response: No adverse reaction br2 20:45 Drug: Ipratropium Inhalation Aerosol 0.5 mg Inhalation once Route: Inhalation; br2 20:45 Drug: Magnesium Sulfate IVPB 1 grams IVPB once over 1 hrs Route: IVPB; Infused Over: 1 br2 hrs; Site: left antecubital; 21:45 Follow up: Response: No adverse reaction; IV Status: Completed infusion; IV Intake: br2 100ml 20:47 Drug: levofloxacin IVPB 500 mg 100 ml IVPB once over 60 mins Volume: 100 ml; Route: br2 IVPB; Infused Over: 60 mins; Site: right antecubital; 21:45 Follow up: Response: No adverse reaction; IV Status: Completed infusion; IV Intake: br2 100ml 09/05 03:37 Drug: Geodon IM 10 mg IM once Route: IM; Site: left deltoid; br2 04:17 Follow up: Response: No adverse reaction; Marked relief of symptoms aa10 Disposition: 09/04 19:34 Critical Care:. rn Disposition Summary: 09/04/24 19:35 Hospitalization Ordered Notes: Hospitalization Status: Inpatient Admission rn Provider: Aime Hackett rn Condition: Stable rn Problem: an acute exacerbation rn Symptoms: have improved rn Bed/Room Type: Standard rn Location: Intensive Care Unit(09/05/24 11:12) bd Room Assignment: 3-(09/05/24 11:38) bd Diagnosis - COPD/ Chronic obstructive pulmonary disease with (acute) exacerbation rn - Hypoxemia rn Forms: - Medication Reconciliation Form rn - SBAR form rn - Leadership Thank You Letter attorney at law time excluding procedures: 19:34 Critical care time: Bedside Care: 35 minutes. Total time: 35 minutes rn Signatures: Dispatcher [employer] EDMS Reanna Cline Kimberly RN Patricia Car RN Genaro Guzman MD MD rn Blanchard, Shelby, RN RN ss Oliver, Kathy, RN RN ko1 Emely Hercules rv1 Lexa Cross MD MD sp4 Vida Maki RN RN br2 Katie Arrieta RN aa10 Corrections: (The following items were deleted from the chart) 18:24 18:24 BLOOD CULTURE*+BA.LAB.BRZ ordered. EDMS EDMS 18:24 18:24 CBC+H.LAB.BRZ ordered. EDMS EDMS 18:24 18:24 COMPREHENSIVE METABOLIC PANEL+C.LAB.BRZ ordered. EDMS EDMS 18:24 18:24 LACTATE+C.LAB.BRZ ordered. EDMS EDMS 18:24 18:24 PROTIME (+INR)+COAG.LAB.BRZ ordered. EDMS EDMS 18:24 18:24 PTT, ACTIVATED+COAG.LAB.BRZ ordered. EDMS EDMS 20:20 19:35 Telemetry/MedSurg (Inpatient) rn rv1 20:20 19:35 rn rv1 09/05 06:39 09/04 20:20 [facility] ER HOLD rv1 kl 09/05 06:39 12 20:20 ERHOLD- rv1 kl 09/05 08:38 06:39 Telemetry/MedSurg (Inpatient) kl iw 08:38 06:39 430 kl iw 11:07 08:38 [facility] ER HOLD iw bd 11:07 08:38 ERHOLD- iw bd 11:12 11:07 Intensive Care Unit bd bd 11:12 11:07 4- bd bd 11:38 11:12 bd bd
--- NOTE | 2024-09-04 19:35 | ER ---
Nurse's Notes [facility] Name: Juan C Monge Age: 64 yrs Sex: Male : 1960 Arrival Date: 09/04/2024 Time: 18:22 Bed 6 Private MD: Diagnosis: COPD/ Chronic obstructive pulmonary disease with (acute) exacerbation;Hypoxemia Presentation: 09/04 18:29 Chief complaint: EMS states: COPD exacerbation. EMS reports patient's RA saturation was ss 50% on RA. Coronavirus screen: Client denies travel out of the [place] in the last 14 days. Client presents with at least one sign or symptom that may indicate coronavirus-19. Ebola Screen: Patient denies exposure to infectious person. Patient denies travel to an Ebola-affected area in the 21 days before illness onset. Initial Sepsis Screen: Does the patient meet any 2 criteria? No. Patient's initial sepsis screen is negative. Does the patient have a suspected source of infection? No. Patient's initial sepsis screen is negative. Risk Assessment: Do you want to hurt yourself or someone else? Patient reports no desire to harm self or others. Onset of symptoms is unknown. 18:29 Acuity: JESSI 2 ss 18:29 Method Of Arrival: EMS: [facility] 18:37 Care prior to arrival: IV initiated. 18 GA, in the right hand, Oxygen administered. via ss nasal cannula. Historical: - Allergies: 18:35 No Known Allergies; ss - PMHx: 18:35 COPD; CVA; Hyperlipidemia; Hypertension; Myocardial infarction; skull fracture; ss - PSHx: 18:35 Appendectomy; pacemaker; ss - Immunization history:: Adult Immunizations unknown. - Infectious Disease History:: Denies. - Family history:: not pertinent. - Hospitalizations: : No recent hospitalization is reported. - Social history:: Smoking status: Patient/guardian denies using tobacco. Screenin:56 [facility] ED Fall Risk Assessment (Adult) History of falling in the last 3 months, ko1 including since admission No falls in past 3 months (0 pts) Confusion or Disorientation No (0 pts) Intoxicated or Sedated No (0 pts) Impaired Gait No (0 pts) Mobility Assist Device Used Yes (1 pt) Altered Elimination No (0 pt) Score/Fall Risk Level 0 - 2 = Low Risk Oriented to surroundings, Maintained a safe environment, Educated pt \T\ family on fall prevention, incl call for assistance when getting out of bed, Assessed \T\ reinforced patient's understanding of fall precautions, Hourly rounding (assess needs \T\ fall precautionary measures) done. Abuse screen: Denies threats or abuse. Denies injuries from another. Nutritional screening: No deficits noted. Tuberculosis screening: No symptoms or risk factors identified. Assessment: 18:56 General: Appears in no apparent distress. Behavior is appropriate for age, agitated. ko1 Pain: Denies pain. Neuro: No deficits noted. Cardiovascular: No deficits noted. Respiratory: Reports shortness of breath at rest. GI: No deficits noted. : No deficits noted. EENT: No deficits noted. Derm: No deficits noted. Musculoskeletal: No deficits noted. 19:10 Reassessment: Patient and/or family updated on plan of care and expected duration. Pain br2 level reassessed. Patient is alert, oriented x 3, equal unlabored respirations, skin warm/dry/pink. PT DEMANDING SOMETHING TO EAT. MILKA AND MYSELF HAVE EXPLAINED THAT HE CANT HAVE FOOD AT THIS TIME UNTIL RESULTS ARE BACK. 20:31 Reassessment: Patient appears in no apparent distress at this time. No changes from aa10 previously documented assessment. Patient and/or family updated on plan of care and expected duration. Pain level reassessed. Patient is alert, oriented x 3, equal unlabored respirations, skin warm/dry/pink. 21:30 Reassessment: Patient and/or family updated on plan of care and expected duration. Pain br2 level reassessed. Patient is alert, oriented x 3, equal unlabored respirations, skin warm/dry/pink. Patient states feeling better. Patient states symptoms have improved. Pain: Denies pain. 22:57 Reassessment: HOSPITALIST NOTIFIED OF ELEVATED LACTIC ACID. br2 09/05 00:00 Reassessment: No changes from previously documented assessment. Patient and/or family br2 updated on plan of care and expected duration. Pain level reassessed. Patient is alert, oriented x 3, equal unlabored respirations, skin warm/dry/pink. Patient states symptoms have improved. 01:24 Reassessment: Patient and/or family updated on plan of care and expected duration. Pain br2 level reassessed. Patient is alert, oriented x 3, equal unlabored respirations, skin warm/dry/pink. Patient states feeling better. Patient states symptoms have improved. 02:00 Reassessment: Patient appears in no apparent distress at this time. No changes from aa10 previously documented assessment. Patient and/or family updated on plan of care and expected duration. Pain level reassessed. Patient is alert, oriented x 3, equal unlabored respirations, skin warm/dry/pink. 03:00 Reassessment: Patient appears in no apparent distress at this time. No changes from aa10 previously documented assessment. Patient and/or family updated on plan of care and expected duration. Pain level reassessed. Patient is alert, oriented x 3, equal unlabored respirations, skin warm/dry/pink. 04:16 Reassessment: Patient appears in no apparent distress at this time. No changes from aa10 previously documented assessment. Patient and/or family updated on plan of care and expected duration. Pain level reassessed. Patient is alert, oriented x 3, equal unlabored respirations, skin warm/dry/pink. 11:10 Reassessment: attempted to call report to ICU. SERA Thakur states they are received the kc6 rapid response from 4th floor and have to down grade a pt to make room for this pt. states she will speak with house sup. Vital Signs: 09/04 18:29 BP 107 / 64; Pulse 105; Resp 33; Temp 98(TE); Pulse Ox 64% on R/A; Height 6 ft. 0 in. ; ss 18:37 Pulse Ox 87% on 4 lpm NC; ss 18:56 BP 119 / 53; Pulse 94; Resp 26; Pulse Ox 93% on 4 lpm NC; ko1 21:31 BP 125 / 66; Pulse 113; Resp 17; Pulse Ox 90% on NC; FiO2 3 %; Pain 0/10; br2 09/05 00:26 Weight 54.88 kg; ha1 03:37 BP 108 / 77; Pulse 113; Resp 18; Pulse Ox 94% on 3 lpm NC; br2 04:14 BP 107 / 63; Pulse 126; Resp 33; Pulse Ox 95% on 2 lpm NC; aa10 21:31 Pain Scale: Adult br2 ED Course: 09/04 18:23 Patient arrived in ED. rn 18:23 Genaro England MD is Attending Physician. rn 18:35 Triage completed. ss 18:35 Arm band placed on right wrist. ss 18:56 Patient has correct armband on for positive identification. Bed in low position. Call ko1 light in reach. Provided Education on: labs. Client placed on continuous cardiac and pulse oximetry monitoring. NIBP monitoring applied. youth nutritional monitor on. Door closed. Noise minimized. Lights dimmed. Warm blanket given. Pillow given. 19:00 Patient requests food. Patient requests liquids. kc6 19:01 Chest Single View XRAY In Process Unspecified. EDMS 19:02 SARS-COV-2 Antigen Rapid Sent. kc6 19:02 Flu Sent. kc6 19:10 Inserted saline lock: 22 gauge in left forearm, using aseptic technique. Blood cc6 collected. Flushed with 10 mL NS. 19:35 Aime Hackett MD is Hospitalizing Provider. rn 20:46 Vida Maki RN is Primary Nurse. br2 09/05 07:29 Primary Nurse role handed off by Vida Maki RN bd Administered Medications: 09/04 20:44 Drug: NS 0.9% IV 1000 ml IV at 1000 ml once; to be given as a bolus over 60 minutes br2 Route: IV; Rate: 1000 ml; Site: right antecubital; 21:45 Follow up: Response: No adverse reaction; IV Status: Completed infusion; IV Intake: br2 1000ml 20:45 Drug: MethylPrednisoLONE IVP 125 mg IVP once Route: IVP; Site: right antecubital; br2 21:15 Follow up: Response: No adverse reaction br2 20:45 Drug: Levalbuterol Inhalation 1.25 mg Inhalation once Route: Inhalation; br2 21:15 Follow up: Response: No adverse reaction br2 20:45 Drug: Levalbuterol Inhalation 1.25 mg Inhalation once Route: Inhalation; br2 21:15 Follow up: Response: No adverse reaction br2 20:45 Drug: Ipratropium Inhalation Aerosol 0.5 mg Inhalation once Route: Inhalation; br2 20:45 Drug: Magnesium Sulfate IVPB 1 grams IVPB once over 1 hrs Route: IVPB; Infused Over: 1 br2 hrs; Site: left antecubital; 21:45 Follow up: Response: No adverse reaction; IV Status: Completed infusion; IV Intake: br2 100ml 20:47 Drug: levofloxacin IVPB 500 mg 100 ml IVPB once over 60 mins Volume: 100 ml; Route: br2 IVPB; Infused Over: 60 mins; Site: right antecubital; 21:45 Follow up: Response: No adverse reaction; IV Status: Completed infusion; IV Intake: br2 100ml 09/05 03:37 Drug: Geodon IM 10 mg IM once Route: IM; Site: left deltoid; br2 04:17 Follow up: Response: No adverse reaction; Marked relief of symptoms aa10 Medication: 09/04 18:56 VIS not applicable for this client. ko1 Intake: 21:45 IV: 100ml; Total: 100ml. br2 21:45 IV: 1000ml; Total: 1100ml. br2 21:45 IV: 100ml; Total: 1200ml. br2 Outcome: 19:35 Decision to Hospitalize by Provider. rn 09/05 13:39 Patient left the ED. ss Signatures: Dispatcher [employer] EDMS Reanna Cline Roman, MD MD rn Blanchard, Shelby RN RN ss Anette Fernandez RN RN ha1 Emelina Rodriguez RN RN kc6 Ashley Henry RN RN ko1 Vida Maki RN RN br2 Claudia Paniagua cc6 Katie Arrieta RN RN aa10 Corrections: (The following items were deleted from the chart) 09/04 18:37 18:29 BP 107 / 64; Pulse 105bpm; Resp 33bpm; Pulse Ox 100% RA; Temp 98F Temporal; ss Height 6 ft. 0 in.; ss
[2024-09-04 19:39] LABS: PT Prothrombin Time 12.9 SECONDS (9.4-12.5); PTT, Activated Partial Thromb 30.8 SECONDS (24.3-36.9); Protime INR 1.16
[2024-09-04 19:46] LABS: Albumin 3.1 g/dL (3.4-5.0); Albumin/Globulin Ratio 0.9 (1.1-1.8); Anion Gap 2.3 mEq/L (5.0-15.0); Bilirubin Total 0.7 mg/dL (0.2-1.0); Globulin 3.3 g/dL (2.3-3.5); Potassium 4.3 mEq/L (3.5-5.1); Protein, Total 6.4 g/dL (6.4-8.2)
--- NOTE | 2024-09-04 19:49 | RAD REPORT ---
Procedure: Chest Single View HISTORY: Shortness of breath COMPARISON: March 2024 FINDINGS: The lungs appear clear of acute infiltrate.. Lungs are hyperaerated No significant pleural effusion noted. The heart is mildly enlarged. . Pacemaker leads in place. IMPRESSION: No acute abnormality is displayed.
--- NOTE | 2024-09-04 19:57 | P.HP ---
Certification for Inpatient Patient admitted to: Inpatient With expected LOS: >2 Midnights Practitioner: I am a practitioner with admitting privileges, knowledge of patient current condition, hospital course, and medical plan of care. Services: Services provided to patient in accordance with Admission requirements found in Title 42 Section 412.3 of the Code of Federal Regulations Patient History Date of Service: 09/05/24 Reason for admission: COPD Exacerbation History of Present Illness: 64 yrs old Male with past medical history of COPD, CVA, hypertension, hyperlipidemia, CAD, CHF status post pacemaker placement, history of skull fracture who was brought to ER with shortness of breath.The patient has shortness of breath at rest, and nausea with with light activity. The patient has experienced similar episodes in the past. Patient is a poor historian hence most of the history is obtained from the chart review and also talked with the ER physician. EMS reports found on couch Unresponsive, and pulse oxygenation saturation was less than 50%. Patient denies any fever or chills. Reports increased shortness of breath recently. Patient is on home oxygen. He was assessed in the ER and is admitted for further management of COPD exacerbation Allergies No Known Allergies Allergy (Verified 09/12/23 00:32) Home medications list reviewed: Yes Home Medications: Fluticasone/Umeclidin/Vilanter [Trelegy Ellipta 100-62.5-25] 1 each IH DAILY 30 Days #1 inhaler 09/15/23 Albuterol Neb [Proventil 0.083% Neb Soln] 2.5 mg IH Q6H 10/17/23 Albuterol Sulfate [Albuterol Sulfate Hfa] 2 puff IH PRN PRN 10/17/23 Citalopram [Celexa*] 10 mg PO DAILY 30 Days #30 tab 02/07/24 Nicotine [Nicoderm*] 21 mg TD DAILY 42 Days #42 patch 02/07/24 Rivaroxaban [Xarelto] 20 mg PO DAILY AT SUPPER 30 Days #30 tab 03/22/24 Albuterol Neb [Proventil 0.083% Neb Soln] 2.5 mg NEB [id number] PRN #120 amp 03/29/24 Amiodarone HCl [Cordarone*] 200 mg PO BID #60 tab 03/29/24 Benzonatate [Tessalon Perle*] 100 mg PO TID PRN #30 cap 03/29/24 Ensure Enlive 237 ml PO BID #30 can 03/29/24 Furosemide [Lasix*] 20 mg PO DAILY #30 tab 03/29/24 Ipratropium Neb [Atrovent*] 0.5 mg NEB [id number] PRN #120 amp 03/29/24 Quetiapine [Seroquel*] 25 mg PO BEDTIME #30 tab 03/29/24 Thiamine HCl [Vitamin B-1*] 200 mg PO DAILY #60 tab 03/29/24 acetaZOLAMIDE [Acetazolamide] 250 mg PO DAILY #30 tab 03/29/24 predniSONE [Deltasone*] 10 mg PO DAILY #5 tab 03/29/24 Metoprolol Tartrate [Lopressor*] 12.5 mg PO BID 30 Days #30 tab 04/05/24 - Past Medical/Surgical History Diabetic: No Past Medical History: Reviewed- Non-Contributory -: COPD -: Paroxysmal Afib -: HTN -: Tobacco abuse -: TIA -: skull fx -: defibrilator -: Home O2 -: Hx Hyponatremia (Dr. Hargrove/ Dr. Menjivar) -: BUE thromus started eliquis Past Surgical History: Reviewed- Non-Contributory -: Appendectomy -: ICM with AICD Psychosocial/ Personal History: Patient lives with a girlfriend at home - Family History Father -: Diabetes Mother -: Diabetes - Social History Smoking Status: Former smoker Alcohol use: No CD- Drugs: No Caffeine use: No Review of Systems 10-point ROS is otherwise unremarkable Physical Examination - Vital Signs Temperature: 98.4 F Blood Pressure: 108/68 Pulse: 84 Respirations: 18 Pulse Ox (%): 94 - Physical Exam General: Alert, Mild distress HEENT: Atraumatic, Normocephalic Neck: Supple Respiratory: Clear to auscultation bilaterally, Normal air movement Cardiovascular: Regular rate/rhythm, Normal S1 S2 Capillary refill: <2 Seconds Gastrointestinal: Soft and benign, W/out hepatosplenomegaly Musculoskeletal: No clubbing, No swelling Integumentary: No rashes Neurological: Normal speech, Normal strength at 5/5 x4 extr, Cranial nerves 3-12 intact Lymphatics: No axilla or inguinal lymphadenopathy - Studies Laboratory Data (last 24 hrs) 09/04/24 09/04/24 09/04/24 19:11 19:11 19:11 WBC 7.00 Hgb 9.4 L Hct 29.8 L Plt Count 147 L PT 12.9 H INR 1.16 APTT 30.8 Sodium 138 Potassium 4.3 BUN 29 H Creatinine 0.92 Glucose 117 H Total Bilirubin 0.7 AST 28 ALT 38 Alkaline Phosphatase 73 Microbiology Data (last 24 hrs): 09/04/24 19:00 Nasopharnyx Influenza Type A Antigen Screen - Final 09/04/24 19:00 Nasopharnyx Influenza Type B Antigen Screen - Final Assessment and Plan - Plan COPD exacerbation Monitor closely on telemetry Started on bronchodilators Oxygen supplementation Steroids added Chest x-ray findings noted Pulmonology consult if not better in the a.m. Acute on chronic hypoxic respiratory failure Oxygen supplementation Will try and wean down oxygen requirement Monitor closely under telemetry Lactic acidosis Hypotension Started on IV hydration Started on albumin and midodrine Will start on Levophed if not better History of atrial fibrillation History of CAD Will get a troponin level Continue home medications and titrate as needed GI/DVT prophylaxis Advanced directive full code Discharge Plan: Home - Advance Directives Does patient have a Living Will: Yes Does patient have a Durable POA for Healthcare: No - Code Status/Comfort Care Code Status: Full Code Time Spent Managing Pts Care (In Minutes): 48
[2024-09-04] MEDS ORDERED: IPRATROPIUM BROM 0.5MG/2.5ML ONE (20:32)
[2024-09-04] MEDS ORDERED: MAGNESIUM SULFATE 1 gm IVPB 1 GM/100 ML BAG IV ONE (20:33)
[2024-09-04] MEDS ORDERED: METHYLPREDNISOLONE 125 MG INJ ONE (20:33)
[2024-09-04] MEDS ORDERED: Levofloxacin500mg IV 500 MG/100 ML BAG IV ONE (20:33)
[2024-09-04] MEDS ORDERED: NA CHLORIDE 0.9% 1,000 ML ONE (20:33)
[2024-09-04] MEDS ORDERED: LEVALBUTEROL 1.25 MG/3 ML NEB ONE (20:33)
[2024-09-04 20:41] LABS: Platelet Estimate DECR; White Blood Cell Scan OK (OK)
[2024-09-04 20:42] LABS: Blood Morphology Comment NOTED (NOT SEEN); Poikilocytosis 2+
[2024-09-04] MEDS ORDERED: ALBUTEROL 2.5 MG/3 ML NEB SOL ONE (22:01)
[2024-09-04] MEDS: CEFTRIAXONE 1,000 MG in NA CHLORIDE 0.9% 50 ML IVPB SCH (23:04)
[2024-09-04] MEDS: AZITHROMYCIN IV 500 MG in NA CHLORIDE 0.9% 250 ML IVPB SCH (23:04)
[2024-09-04] MEDS ORDERED: AZITHROMYCIN 500 MG INJ IVPB ONE (23:07)
[2024-09-04] MEDS ORDERED: NA CHLORIDE 0.9% 250 ML ONE (23:07)
[2024-09-04] MEDS: NA CHLORIDE 0.9% 1,000 ML IV SCH (23:45)
[2024-09-05] MEDS ORDERED: CEFTRIAXONE 1000 MG/VIAL ONE ×2 (00:16→10:36)
[2024-09-05] MEDS ORDERED: NA CHLORIDE 0.9% 1,000 ML ONE (00:16)
[2024-09-05] MEDS ORDERED: NA CHLORIDE 0.9% 100 ML ONE (00:17)
[2024-09-05] MEDS: ALBUMIN HUMAN 25% 200 ML IV ONE (00:27)
[2024-09-05] MEDS: MIDODRINE HCL 5 MG TABLET PO SCH (00:28)
[2024-09-05] MEDS: METHYLPREDNISOLONE 125 MG INJ IV SCH (00:37)
[2024-09-05] MEDS ORDERED: MIDODRINE HCL 5 MG TABLET ONE (00:37)
[2024-09-05] MEDS ORDERED: ALBUMIN HUMAN 25% 50 ML IV ONE (00:38)
[2024-09-05] MEDS: ALBUTEROL 2.5 MG/3 ML NEB SOL NEB SCH (00:50)
[2024-09-05] MEDS: IPRATROPIUM BROM 0.5MG/2.5ML NEB SCH ×2 (00:50→12:57)
[2024-09-05] MEDS ORDERED: NOREPINEPHRINE 4 MG in D5W 250 ML IV SCH (01:00)
[2024-09-05] MEDS ORDERED: ZIPRASIDONE MESYLA 20 MG/VIAL IM ONE (03:30)
[2024-09-05] MEDS ORDERED: WATER FOR INJ,STERILE 10 ML ONE (03:30)
[2024-09-05] MEDS ORDERED: METHYLPREDNISOLONE 125 MG INJ ONE (04:37)
[2024-09-05 04:50] LABS: Absolute Lymphocytes (CBC) 0.1 K/uL (0.7-4.9); Absolute Monocytes 0.1 K/uL (0.1-1.3); Absolute Neutrophil 4.2 K/uL (1.8-8.0); Basophils % 0.1 % (0-1.3); Hematocrit 29.8 % (39.6-49.0); Hemoglobin 9.3 g/dL (13.6-17.9); Lymphocytes % 2.6 % (15.3-44.8); MCH 30.6 pg (27.0-35.0); MCHC 31.3 g/dL (32.0-36.0); MCV 97.8 fL (80-100); MPV 9.9 fL (7.6-11.3); Monocytes % 1.4 % (3.3-12.3); Platelets 116 thou/uL (152-406); RBC Red Blood Cell Count 3.05 M/uL (4.33-5.43); Red Cell Distribution Width 15.5 % (12.1-15.2)
[2024-09-05 04:51] LABS: Albumin 3.1 g/dL (3.4-5.0); Albumin/Globulin Ratio 0.9 (1.1-1.8); Anion Gap 3.4 mEq/L (5.0-15.0); Bilirubin Total 0.7 mg/dL (0.2-1.0); Globulin 3.4 g/dL (2.3-3.5); Magnesium 2.2 mg/dL (1.6-2.4); Phosphorus 4.1 mg/dL (2.5-4.9); Potassium 4.4 mEq/L (3.5-5.1); Protein, Total 6.5 g/dL (6.4-8.2)
[2024-09-05 04:56] LABS: Neutrophils % 95.9 % (41.7-73.7)
[2024-09-05] MEDS: HEPARIN 10,000 UNIT/10 ML VIAL IV ONE (05:41)
[2024-09-05] MEDS ORDERED: HEPARIN 5000 UNIT/ML 1 ML VIAL ONE (05:51)
[2024-09-05] MEDS ORDERED: HEPARIN/D5W 25,000 UNIT/500 ML BAG IV ONE (05:51)
[2024-09-05] MEDS: HEPARIN 5000 UNIT/ML 1 ML VIAL IV ONE (06:00)
[2024-09-05] MEDS: HEPARIN IV PRN (06:12)
[2024-09-05] MEDS: DEXTROSE IV PRN (06:12)
[2024-09-05 06:24] LABS: Absolute Lymphocytes (CBC) 0.1 K/uL (0.7-4.9); Absolute Monocytes 0.1 K/uL (0.1-1.3); Absolute Neutrophil 4.1 K/uL (1.8-8.0); Hemoglobin 9.6 g/dL (13.6-17.9); Lymphocytes % 2.6 % (15.3-44.8); MCH 30.8 pg (27.0-35.0); MCHC 30.9 g/dL (32.0-36.0); MCV 99.7 fL (80-100); MPV 10.2 fL (7.6-11.3); Monocytes % 1.4 % (3.3-12.3); Platelets 105 thou/uL (152-406); RBC Red Blood Cell Count 3.11 M/uL (4.33-5.43); Red Cell Distribution Width 15.9 % (12.1-15.2)
[2024-09-05 06:34] LABS: Blood O2 Saturation 88.1 % (92-98.5)
[2024-09-05 06:35] LABS: Arterial Blood Carboxyhemoglob 1.3 % (0-1.5); Blood Gas Oxyhemoglobin 85.3 % (94-97); Blood Gas THB 10.1 g/dl (12-18)
[2024-09-05 06:38] LABS: PT Prothrombin Time 12.5 SECONDS (9.4-12.5); PTT, Activated Partial Thromb 98.4 SECONDS (24.3-36.9); Protime INR 1.12
[2024-09-05] MEDS: FLU (Fluarix Triv) TS24-25(6MOS UP)/PF 45 MCG/0.5 ML Syringe IM ONE (07:30)
[2024-09-05] MEDS ORDERED: D10W 125 ML IV PRN (07:48)
[2024-09-05] MEDS ORDERED: GLUCAGON 1 MG/VIAL IM PRN (07:48)
[2024-09-05] MEDS ORDERED: ALBUTEROL 2.5 MG/3 ML NEB SOL ONE ×2 (07:57→12:45)
[2024-09-05] MEDS ORDERED: IPRATROPIUM BROM 0.5MG/2.5ML ONE ×2 (07:57→12:45)
[2024-09-05] MEDS: PNEUMOCOCCAL VACCINE 0.5 ML IMVAC ONE (08:00)
[2024-09-05] MEDS: METOPROLOL TAR 25 MG TAB PO SCH (09:00)
[2024-09-05] MEDS: acetaZOLAMIDE 250 MG TAB PO SCH (09:00)
[2024-09-05] MEDS: AMIODARONE HCL 200 MG TAB PO SCH (09:00)
[2024-09-05] MEDS: THIAMINE HCL 100 MG TABLET PO SCH (09:00)
[2024-09-05] MEDS: NICOTINE 21 MG/PAT TD SCH (09:00)
[2024-09-05] MEDS ORDERED: ENOXAPARIN 40 MG/0.4 ML SQ SCH (09:00)
[2024-09-05] MEDS: CITALOPRAM 10 MG TABLET PO SCH (09:00)
[2024-09-05] MEDS ORDERED: METOPROLOL TAR 25 MG TAB PO SCH (09:00)
[2024-09-05] MEDS: ASPIRIN EC 81 MG TAB PO SCH (09:00)
[2024-09-05] MEDS: ENSURE ENLIVE 237 ML CAN PO SCH (09:00)
[2024-09-05] MEDS ORDERED: NICOTINE 21 MG/PAT TD ONE (10:36)
[2024-09-05] MEDS: INSULIN REGULAR (HUMAN) 100 UNIT/ML SQ SCH (11:30)
--- NOTE | 2024-09-05 12:16 | P.CNS ---
Date of Consult: 09/05/24 Chief Complaint: COPD Exacerbation History of Present Illness: Patient with PMH of Advanced HF reduced EF, s/p ICD, AF, COPD presented with hyercapnic respiratory failure, denies chest pain, no palpitations, no syncope. Allergies No Known Allergies Allergy (Verified 09/12/23 00:32) Home medications list reviewed: Yes Home Medications: Fluticasone/Umeclidin/Vilanter [Trelegy Ellipta 100-62.5-25] 1 each IH DAILY 30 Days #1 inhaler 09/15/23 Albuterol Neb [Proventil 0.083% Neb Soln] 2.5 mg IH Q6H 10/17/23 Albuterol Sulfate [Albuterol Sulfate Hfa] 2 puff IH PRN PRN 10/17/23 Citalopram [Celexa*] 10 mg PO DAILY 30 Days #30 tab 02/07/24 Nicotine [Nicoderm*] 21 mg TD DAILY 42 Days #42 patch 02/07/24 Rivaroxaban [Xarelto] 20 mg PO DAILY AT SUPPER 30 Days #30 tab 03/22/24 Albuterol Neb [Proventil 0.083% Neb Soln] 2.5 mg NEB [id number] PRN #120 amp 03/29/24 Amiodarone HCl [Cordarone*] 200 mg PO BID #60 tab 03/29/24 Benzonatate [Tessalon Perle*] 100 mg PO TID PRN #30 cap 03/29/24 Ensure Enlive 237 ml PO BID #30 can 03/29/24 Furosemide [Lasix*] 20 mg PO DAILY #30 tab 03/29/24 Ipratropium Neb [Atrovent*] 0.5 mg NEB [id number] PRN #120 amp 03/29/24 Quetiapine [Seroquel*] 25 mg PO BEDTIME #30 tab 03/29/24 Thiamine HCl [Vitamin B-1*] 200 mg PO DAILY #60 tab 03/29/24 acetaZOLAMIDE [Acetazolamide] 250 mg PO DAILY #30 tab 03/29/24 predniSONE [Deltasone*] 10 mg PO DAILY #5 tab 03/29/24 Metoprolol Tartrate [Lopressor*] 12.5 mg PO BID 30 Days #30 tab 04/05/24 - Past Medical/Surgical History Diabetic: No -: COPD -: Paroxysmal Afib -: HTN -: Tobacco abuse -: TIA -: skull fx -: defibrilator -: Home O2 -: Hx Hyponatremia (Dr. Hargrove/ Dr. Menjivar) -: BUE thromus started eliquis -: Appendectomy -: ICM with AICD Psychosocial/ Personal History: Patient lives with a girlfriend at home - Family History Father Medical History: Diabetes Mother Medical History: Diabetes - Social History Smoking Status: Current every day smoker Alcohol use: No CD- Drugs: No Caffeine use: No Review of Systems 10-point ROS is otherwise unremarkable Physical Examination Temp Pulse Resp BP Pulse Ox 98.2 F 110 H 24 H 115/75 93 09/05/24 08:00 09/05/24 09:00 09/05/24 08:00 09/05/24 09:00 09/05/24 08:00 General: Alert, In no apparent distress HEENT: Atraumatic, PERRLA, Mucous membr. moist/pink, EOMI, Sclerae nonicteric Neck: Supple, 2+ carotid pulse no bruit, No LAD, Without JVD or thyroid abnormality Respiratory: Diminished, Dull Cardiovascular: Regular rate/rhythm, Normal S1 S2 Gastrointestinal: Normal bowel sounds, No tenderness Musculoskeletal: No tenderness Integumentary: No rashes Neurological: Normal gait, Normal speech, Normal tone, Normal affect Lymphatics: No axilla or inguinal lymphadenopathy Laboratory Data (last 24 hrs) 09/04/24 09/04/24 09/04/24 19:11 19:11 19:11 WBC 7.00 Hgb 9.4 L Hct 29.8 L Plt Count 147 L PT 12.9 H INR 1.16 APTT 30.8 Sodium 138 Potassium 4.3 BUN 29 H Creatinine 0.92 Glucose 117 H Total Bilirubin 0.7 AST 28 ALT 38 Alkaline Phosphatase 73 - Problems (1) Chronic combined systolic (congestive) and diastolic (congestive) heart failure Current Visit: Yes Status: Acute Plan: Patient looks euvolemic on exam, CXR, no signs of pulmonary edema get NT-proBNP continue lopressor 12.5 mg po BID continue to monitor volume status (2) Hypercapnic respiratory failure Current Visit: Yes Status: Acute Plan: Patient is acidotic with significant elevated pCO2, currently on BiPAP. continue support, get pulmonary, consider repeating ABG in 4 hours while on BiPAP. (3) NSTEMI (non-ST elevated myocardial infarction) Current Visit: Yes Status: Acute Plan: Mild elevated Troponin, patient is known to have cardiomyopathy, continue Heparin drip. ASA 81 mg daily Patient is very hypercapnic and too high risk for any coronary angiogram at this time, if respiratory function deteriorate then would recommend transfer to tertiary center
[2024-09-05] MEDS ORDERED: METHYLPREDNISOLONE 40 MG INJ ONE (12:18)
--- NOTE | 2024-09-05 12:48 | P.CNS ---
Date of Consult: 09/05/24 Reason for Consult: Respiratory failure Chief Complaint: Acute on chronic respiratory failure History of Present Illness: Patient is 64 years of age with terminal COPD recurrent and frequent hospital admissions debilitation weight loss admitted with worsening dyspnea over the past few weeks patient was admitted with hypoxic hypercapnic respiratory failure alert responsive on the BiPAP he has a noninvasive ventilator at home patient claims that he has been using his medications Allergies No Known Allergies Allergy (Verified 09/12/23 00:32) Home Medications: Fluticasone/Umeclidin/Vilanter [Trelegy Ellipta 100-62.5-25] 1 each IH DAILY 30 Days #1 inhaler 09/15/23 Albuterol Neb [Proventil 0.083% Neb Soln] 2.5 mg IH Q6H 10/17/23 Albuterol Sulfate [Albuterol Sulfate Hfa] 2 puff IH PRN PRN 10/17/23 Citalopram [Celexa*] 10 mg PO DAILY 30 Days #30 tab 02/07/24 Nicotine [Nicoderm*] 21 mg TD DAILY 42 Days #42 patch 02/07/24 Rivaroxaban [Xarelto] 20 mg PO DAILY AT SUPPER 30 Days #30 tab 03/22/24 Albuterol Neb [Proventil 0.083% Neb Soln] 2.5 mg NEB [id number] PRN #120 amp 03/29/24 Amiodarone HCl [Cordarone*] 200 mg PO BID #60 tab 03/29/24 Benzonatate [Tessalon Perle*] 100 mg PO TID PRN #30 cap 03/29/24 Ensure Enlive 237 ml PO BID #30 can 03/29/24 Furosemide [Lasix*] 20 mg PO DAILY #30 tab 03/29/24 Ipratropium Neb [Atrovent*] 0.5 mg NEB [id number] PRN #120 amp 03/29/24 Quetiapine [Seroquel*] 25 mg PO BEDTIME #30 tab 03/29/24 Thiamine HCl [Vitamin B-1*] 200 mg PO DAILY #60 tab 03/29/24 acetaZOLAMIDE [Acetazolamide] 250 mg PO DAILY #30 tab 03/29/24 predniSONE [Deltasone*] 10 mg PO DAILY #5 tab 03/29/24 Metoprolol Tartrate [Lopressor*] 12.5 mg PO BID 30 Days #30 tab 04/05/24 - Past Medical/Surgical History Diabetic: No -: COPD -: Paroxysmal Afib -: HTN -: Tobacco abuse -: TIA -: skull fx -: defibrilator -: Home O2 -: Hx Hyponatremia (Dr. Hargrove/ Dr. Menjivar) -: BUE thromus started eliquis -: SEVERELY CHF, EF 10-15% -: Appendectomy -: ICM with AICD Psychosocial/ Personal History: Patient lives with a girlfriend at home - Family History Father Medical History: Diabetes Mother Medical History: Diabetes - Social History Smoking Status: Current every day smoker Alcohol use: No CD- Drugs: No Caffeine use: No Review of Systems 10-point ROS is otherwise unremarkable General: Weakness Respiratory: Shortness of Breath Physical Examination Temp Pulse Resp BP Pulse Ox 98.3 F 109 H 20 107/73 95 09/05/24 12:00 09/05/24 12:00 09/05/24 12:00 09/05/24 12:00 09/05/24 12:00 General: Alert, Oriented x3 Respiratory: Clear to auscultation bilaterally, Diminished Cardiovascular: No edema, Regular rate/rhythm, Normal S1 S2 Gastrointestinal: Soft and benign Laboratory Data (last 24 hrs) 09/04/24 09/04/24 09/04/24 19:11 19:11 19:11 WBC 7.00 Hgb 9.4 L Hct 29.8 L Plt Count 147 L PT 12.9 H INR 1.16 APTT 30.8 Sodium 138 Potassium 4.3 BUN 29 H Creatinine 0.92 Glucose 117 H Total Bilirubin 0.7 AST 28 ALT 38 Alkaline Phosphatase 73 - Problems (1) Acute and chronic respiratory failure with hypercapnia Current Visit: Yes Status: Acute Plan: 64 years of age with terminal COPD recurrent frequent exacerbations admitted with hypercapnic respiratory failure which is acute on chronic and appears to have a respitory acidosis with some compensation due to elevated bicarbonate continue with steroids antibiotics titrate sat to 90% repeat arterial blood gases is a full code patient's troponin is elevated I suspect is from the his underlying hypoxemia patient also has a history of severe CHF/diuretics as tolerated
--- NOTE | 2024-09-05 13:17 | P.PN ---
Subjective Date of Service: 09/05/24 Chief Complaint: Acute on chronic respiratory failure Subjective: No new changes Patient complaining of shortness of breath at rest, desaturated on nasal cannula back on BiPAP during the day. Review of Systems is unable to be obtained Physical Examination - Vital Signs Temperature: 98.3 F Blood Pressure: 107/73 Pulse: 109 Respirations: 20 Pulse Ox (%): 95 - Physical Exam Other Physical/Emotional Findings: - Physical Exam. General: Not acutely ill looking, in no apparent distress,. HEENT: Normocephalic, atraumatic, nonicteric sclera, nonanemic conjunctive. Neck: Supple, without JVD or goiter or thyroid mass. Respiratory: Decreased breath sound bilaterally, no crackles no wheezing or rhonchi. Cardiovascular: Regular rate and rhythm, S1, S2 normal, no murmur no gallop. Gastrointestinal: Normal bowel sounds, nondistended, nontender, No ascites, , No masses, no hepatosplenomegaly. Extremities l: No clubbing, No peripheral edema, full range of motion, no deformity, no muscle atrophy. Integumentary: No rashes, petechia, suspected lesions. Lymphatics: No axilla or cervical lymphadenopathy. Neurology; alert awake oriented x3, no focal neurologic deficit, normal affection . mood and behavior. - Studies Laboratory Data (last 24 hrs) 09/04/24 09/04/24 09/04/24 19:11 19:11 19:11 WBC 7.00 Hgb 9.4 L Hct 29.8 L Plt Count 147 L PT 12.9 H INR 1.16 APTT 30.8 Sodium 138 Potassium 4.3 BUN 29 H Creatinine 0.92 Glucose 117 H Total Bilirubin 0.7 AST 28 ALT 38 Alkaline Phosphatase 73 Microbiology Data (last 24 hrs): 09/04/24 19:00 Nasopharnyx Influenza Type A Antigen Screen - Final 09/04/24 19:00 Nasopharnyx Influenza Type B Antigen Screen - Final Assessment And Plan - Plan This is a 64 years old gentleman with complex medical problem including COPD on home oxygen, hypertension, coronary artery disease, paroxysmal A-fib, congestive heart failure status post AICD, hypertension old stroke who presented to emergency room for evaluation of shortness of breath and admitted for #1 acute on chronic hypoxic and hypercapnic respiratory failure related to #2 ABG reviewed pH 7.1, pCO2 137 mmHg, pO2 68 mmHg saturation 88% Currently on BiPAP FiO2 28% #2 acute exacerbation of COPD Test negative for COVID-19 and influenza A and B, chest x-ray reviewed no acute abnormality but markedly hyperinflated lungs, no leukocytosis, afebrile, I will continue ceftriaxone as there is no risk of Pseudomonas infection, IV steroid 60 mg every 8 hour, I will request pulmonary consult. Case discussed with Dr. Li in person #3 elevated troponin and a lactate secondary to hypoxia I will start heparin's drip because there is low clinical suspicion for acute coronary syndrome. #4 glucocorticoid induced hyperglycemia Last hemoglobin A1c was normal at 5.5 in 2022, random blood sugar elevated, I will put him on on moderate dose sliding scale #5 presumed anemia of chronic disease Hemoglobin 9.1, no transfusion indicated, no clinical bleeding. DVT prophylaxis; enoxaparin Patient current condition did not improved after IV methylprednisolone x 1, patient will require to BiPAP during the day, I will upgrade patient from general medical floor to ICU admission. Transfer order and bed request has been done.
[2024-09-05] MEDS: FUROSEMIDE 100 MG in NA CHLORIDE 0.9% 90 ML IV SCH (14:31)
[2024-09-05] MEDS: HEPARIN 5000 UNIT/ML 1 ML VIAL IV SCH (15:11)
[2024-09-05] MEDS ORDERED: HEPARIN/D5W 25,000 UNIT/500 ML BAG IV SCH (16:00)
[2024-09-05] MEDS: METHYLPREDNISOLONE 40 MG INJ IV SCH (16:18)
[2024-09-05] MEDS ORDERED: RIVAROXABAN 20 MG TABLET PO SCH (17:00)
[2024-09-05 17:27] LABS: Blood Gas Oxyhemoglobin 35.7 % (94-97); Blood Gas THB 9.3 g/dl (12-18); Blood O2 Saturation 36.4 % (92-98.5)
[2024-09-05] MEDS: DEXMEDETOMIDINE HCL 200 MCG in NA CHLORIDE 0.9% 98 ML IV SCH (20:22)
[2024-09-05] MEDS: QUETIAPINE 25 MG TAB PO SCH (20:40)
[2024-09-05] MEDS: ATORVASTATIN 40 MG TAB PO SCH (20:40)
[2024-09-05 22:45] LABS: Specific Gravity 1.022 (1.005-1.030); Sqamous Epithelial <5 /HPF (None Seen); Urine Bacteria None Seen /HPF (<20); Urine Bilirubin NEGATIVE (Negative); Urine Blood Trace (Negative); Urine Clarity Turbid (Clear); Urine Color Yellow (Yellow); Urine Culture Reflex Order NOT NEEDED; Urine Glucose NEGATIVE (Negative); Urine Ketones NEGATIVE (Negative); Urine Microscopic Reflex YN ORDER UMIC; Urine Mucus Slight /HPF (None Seen); Urine Nitrite NEGATIVE (Negative); Urine Protein 1+ (Negative); Urine RBC <5 /HPF (None Seen); Urine Urobilinogen Normal (Normal); Urine WBC <5 /HPF (<5); Urine pH 5.5 (5.0-7.0)
[2024-09-06 05:44] LABS: MPV 10.4 fL (7.6-11.3); Platelets 86 thou/uL (152-406)
[2024-09-06 06:56] LABS: Arterial Blood Carboxyhemoglob 0.9 % (0-1.5); Blood Gas Oxyhemoglobin 96.9 % (94-97); Blood O2 Saturation 98.9 % (92-98.5)
[2024-09-06 06:58] LABS: Blood Gas THB 8.2 g/dl (12-18)
[2024-09-06 07:29] LABS: Platelet Estimate DECR
[2024-09-06 08:10] LABS: Blood Morphology Comment NOT SEEN (NOT SEEN); White Blood Cell Scan OK (OK)
--- NOTE | 2024-09-06 10:02 | P.PN ---
Subjective Date of Service: 09/06/24 Chief Complaint: Acute on chronic respiratory failure Subjective: No new changes, No C/O voiced, Tolerating diet, Ambulating, Improving Review of Systems 10-point ROS is otherwise unremarkable Physical Examination - Vital Signs Temperature: 97.5 F Blood Pressure: 98/55 Pulse: 85 Respirations: 24 Pulse Ox (%): 98 - Physical Exam General: Alert, In no apparent distress HEENT: Atraumatic, PERRLA, EOMI Neck: Supple, JVD not distended Respiratory: Clear to auscultation bilaterally, Normal air movement Cardiovascular: Regular rate/rhythm, Normal S1 S2 Gastrointestinal: Normal bowel sounds, No tenderness Musculoskeletal: No tenderness Integumentary: No rashes Neurological: Normal speech, Normal tone, Normal affect Lymphatics: No axilla or inguinal lymphadenopathy Other Physical/Emotional Findings: - Physical Exam. General: Not acutely ill looking, in no apparent distress,. HEENT: Normocephalic, atraumatic, nonicteric sclera, nonanemic conjunctive. Neck: Supple, without JVD or goiter or thyroid mass. Respiratory: Decreased breath sound bilaterally, no crackles no wheezing or rhonchi. Cardiovascular: Regular rate and rhythm, S1, S2 normal, no murmur no gallop. Gastrointestinal: Normal bowel sounds, nondistended, nontender, No ascites, , No masses, no hepatosplenomegaly. Extremities l: No clubbing, No peripheral edema, full range of motion, no deformity, no muscle atrophy. Integumentary: No rashes, petechia, suspected lesions. Lymphatics: No axilla or cervical lymphadenopathy. Neurology; alert awake oriented x3, no focal neurologic deficit, normal affection . mood and behavior. - Studies Medications List Reviewed: Yes Assessment And Plan - Current Problems (Diagnosis) (1) Chronic combined systolic (congestive) and diastolic (congestive) heart failure Current Visit: Yes Status: Acute Plan: Patient looks euvolemic on exam, CXR, no signs of pulmonary edema but echo shows severe reduced LV systolic function ,severe MR and dilated IVC Continue Lasix drip at 2.5 mg/hr. continue lopressor 12.5 mg po BID continue to monitor volume status (2) Hypercapnic respiratory failure Current Visit: Yes Status: Acute Plan: Patient is acidotic with significant elevated pCO2, currently on BiPAP. continue support, get pulmonary, consider repeating ABG in 4 hours while on BiPAP. (3) NSTEMI (non-ST elevated myocardial infarction) Current Visit: Yes Status: Acute Plan: Mild elevated Troponin, patient is known to have cardiomyopathy, continue Heparin drip. ASA 81 mg daily Patient is very hypercapnic and too high risk for any coronary angiogram at this time, if respiratory function deteriorate then would recommend transfer to tertiary center
--- NOTE | 2024-09-06 10:14 | P.PN ---
Subjective Date of Service: 09/06/24 Chief Complaint: Acute on chronic respiratory failure Subjective: Improving He says he is feeling a little bit better, he is oxygen saturation holding of above 90 on nasal cannula, repeat ABG reviewed Review of Systems Other: Consitutional; fever(-), chills (-), rigor(-), night sweat(-), unintentional weight loss(-), malaise (-) HEENT; diplopia (-), rhinorrhea (-), epistaxis (-), otorrhea (-), otalgia (-) Respiratory; shortness of breath (+), wheezing (-), cough (-), sputum (-), pleuritic chest pain (-) Cardiovascular; chest pain (-), peripheral edema (-), paroxysmal nocturnal dyspnea (-), orthopnea (-) Gastrointestinal; nausea (-), vomiting (-), abdominal pain (-), diarrhea (-), constipation (-), melena (-), hematochezia (-) Genitourinary; urinary frequency (-), dysuria (-), urgency (-), flank pain (-), gross hematuria (-), incontinence (-) Skin; rash (-), pruritus (-) FAMILY RESOURCE SPECIALIST; headache (-), paresthesia (-), numbness (-), paralysis (-) Physical Examination - Vital Signs Temperature: 97.5 F Blood Pressure: 98/55 Pulse: 85 Respirations: 24 Pulse Ox (%): 98 - Physical Exam Other Physical/Emotional Findings: - Physical Exam. General: Cachectic, chronic ill-looking, in no apparent distress,. HEENT: Normocephalic, atraumatic, nonicteric sclera, nonanemic conjunctive. Neck: Supple, without JVD or goiter or thyroid mass. Respiratory: Decreased breath sound bilaterally, no crackles no wheezing or rhonchi. Cardiovascular: Distant heart sound. Gastrointestinal: Normal bowel sounds, nondistended, nontender, No ascites, , No masses, no hepatosplenomegaly. Extremities l: No clubbing, No peripheral edema, full range of motion, no deformity, no muscle atrophy. Integumentary: No rashes, petechia, suspected lesions. Lymphatics: No axilla or cervical lymphadenopathy. Neurology; alert awake oriented x3, no focal neurologic deficit, normal affection . mood and behavior. - Studies Medications List Reviewed: Yes Assessment And Plan - Plan This is a 64 years old gentleman with complex medical problem including COPD on home oxygen, hypertension, coronary artery disease, paroxysmal A-fib, congestive heart failure status post AICD, hypertension old stroke who presented to emergency room for evaluation of shortness of breath and admitted for #1 acute on chronic hypoxic and hypercapnic respiratory failure related to #2 Repeat ABG reviewed, improved, pH is 7.33, pCO2 down to 83 mmHg from 137 mmHg, Continue BiPAP and nasal cannula, pulmonology on board #2 acute exacerbation of COPD Test negative for COVID-19 and influenza A and B, chest x-ray no acute abnormality but markedly hyperinflated lungs, no leukocytosis, afebrile, I will continue ceftriaxone as there is no risk of Pseudomonas infection, IV steroid 40 mg every 8 hour, scheduled DuoNeb #3 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, dilated cardiomyopathy, [place] heart association heart failure class IV Blood pressure is borderline, only tolerated low-dose metoprolol 12.5 in furosemide infusion 2.5 mg/h, clinically euvolemia old transthoracic cardiogram reviewed, dilated CMP, ejection fraction 10 to 15%, severe MR and TR, pulmonary hypertension #4 elevated troponin and a lactate secondary to hypoxia rule out possible non- STEMI Cardiology restarted heparin drip #5 glucocorticoid induced hyperglycemia Last hemoglobin A1c was normal at 5.5 in 2022, resume her glycemic control, I will keep him on moderate dose insulin sliding scale, #6 presumed anemia of chronic disease Hemoglobin 9.1, no transfusion indicated, no clinical bleeding. #7 thrombocytopenia Clinically suspected heparin-induced thrombocytopenia, I will order platelet factor 4 antibody DVT prophylaxis; heparin infusion Disposition; he has a poor prognosis and serious multiple comorbidity, continue to need ICU care
--- NOTE | 2024-09-06 11:30 | EKG ---
Test Date: 2024-09-04 Test Time: 18:55:15 Horticultural Farmer: NAI MEASUREMENT RESULTS: Intervals: Rate: 101 OH: 132 QRSD: 92 QT: 376 QTc: 487 [place]: P: 85 OH: 132 QRS: 76 T: 95 INTERPRETIVE STATEMENTS: Sinus tachycardia with occasional premature ventricular complexes Right atrial enlargement Nonspecific T wave abnormality Abnormal ECG Compared to ECG 04/03/2024 13:30:59 Ventricular premature complex(es) now present Sinus rhythm no longer present T-wave abnormality still present Electronically Signed On 09-06-24 11:28:10 ITEM REPAIR MANAGER by Guevara Shepherd
[2024-09-06] MEDS: PNEUMOCOCCAL VACCINE 0.5 ML IMVAC ONE (11:39)
[2024-09-06] MEDS: FLU (Fluarix Triv) TS24-25(6MOS UP)/PF 45 MCG/0.5 ML Syringe IM ONE (11:40)
--- NOTE | 2024-09-06 11:53 | ECHO ---
HEIGHT: 6 ft 0 in WEIGHT: 124 lb 8 oz DATE OF STUDY: 09/05/[address]: Agapito Hackett DO 2-DIMENSIONAL: YES M.MODE: YES DOPPLER: YES COLOR FLOW: YES TDS: NO PORTABLE: YES DEFINITY: NO BUBBLE STUDY: NO DIAGNOSIS: NSTEMI CARDIAC HISTORY: CATHERIZATION: NO SURGERY: NO PROSTHETIC VALVE: NO PACEMAKER: YES MEASUREMENTS (cm) DIASTOLIC (NORMALS) SYSTOLIC (NORMALS) IVSd 0.9 (0.6-1.2) LA Diam 3.2 (1.9-4.0) LVEF 10-15% LVIDd 6.3 (3.5-5.7) LVIDs 5.5 (2.0-3.5) %FS 14% LVPWd 1.0 (0.6-1.2) Ao Diam 2.9 (2.0-3.7) 2 DIMENSIONAL ASSESSMENT: RIGHT ATRIUM: NORMAL LEFT ATRIUM: MODERATELY DILATED RIGHT VENTRICLE: NORMAL, PACKEMAKER LEAD SEEN LEFT VENTRICLE: SEVERELY DILATED TRICUSPID VALVE: MODERATE TRICUSPID REGURGITATION MITRAL VALVE: SEVERE MITRAL REGURGITATION PULMONIC VALVE: NORMAL AORTIC VALVE: NORMAL PERICARDIAL EFFUSION: NONE AORTIC ROOT: NORMAL LEFT VENTRICULAR WALL MOTION: SEVERE GLOBAL HYPOKINESIS. DOPPLER/COLOR FLOW: DIASTOLIC DYSFUNCTION. COMMENTS: [*] 1. SEVERELY REDUCED LEFT VENTRICULAR SYSTOLIC FUNCTION. LEFT VENTRICULAR EJECTION FRACTION 10-15%. SEVERE GLOBAL HYPOKINESIS. 2. DIASTOLIC DYSFUNCTION WITH ELEVATED FILLING PRESSURE. 3. SEVERE MITRAL REGURGITATION. 4. ELEVATED FILLING PRESSURE. RIGHT ATRIAL PRESSURE >20 mmHg. 5. MODERATE PULMONARY HYPERTENSION. RIGHT VENTRICULAR SYSTOLIC PRESSURE 50-55 mmHg TECHNOLOGIST: BUSTER BRYANT
--- NOTE | 2024-09-06 11:59 | P.PN ---
Subjective Date of Service: 09/06/24 Chief Complaint: Acute on chronic respiratory failure Subjective: Improving (Patient is improving he is doing better alert responsive oriented) Review of Systems General: Weakness Respiratory: Shortness of Breath Physical Examination - Vital Signs Temperature: 97.5 F Blood Pressure: 91/54 Pulse: 80 Respirations: 23 Pulse Ox (%): 98 - Physical Exam General: Alert, Oriented x3 Respiratory: Clear to auscultation bilaterally, Diminished Cardiovascular: No edema, Regular rate/rhythm Other Physical/Emotional Findings: - Physical Exam. General: Cachectic, chronic ill-looking, in no apparent distress,. HEENT: Normocephalic, atraumatic, nonicteric sclera, nonanemic conjunctive. Neck: Supple, without JVD or goiter or thyroid mass. Respiratory: Decreased breath sound bilaterally, no crackles no wheezing or rhonchi. Cardiovascular: Distant heart sound. Gastrointestinal: Normal bowel sounds, nondistended, nontender, No ascites, , No masses, no hepatosplenomegaly. Extremities l: No clubbing, No peripheral edema, full range of motion, no deformity, no muscle atrophy. Integumentary: No rashes, petechia, suspected lesions. Lymphatics: No axilla or cervical lymphadenopathy. Neurology; alert awake oriented x3, no focal neurologic deficit, normal affection . mood and behavior. - Studies Medications List Reviewed: Yes Assessment And Plan - Current Problems (Diagnosis) (1) Acute and chronic respiratory failure with hypercapnia Current Visit: Yes Status: Acute Plan: Patient admitted with respiratory failure doing much better his CO2 is declined cultures negative vital signs stable recheck chemistry patient also has a non- STEMI can change to Lovenox interventional procedure not planned patient has severe CHF [id number] SEVERELY REDUCED LEFT VENTRICULAR SYSTOLIC FUNCTION. LEFT VENTRICULAR EJECTION FRACTION 10-15%. SEVERE GLOBAL HYPOKINESIS. 2. DIASTOLIC DYSFUNCTION WITH ELEVATED FILLING PRESSURE. 3. SEVERE MITRAL REGURGITATION. 4. ELEVATED FILLING PRESSURE. RIGHT ATRIAL PRESSURE >20 mmHg. 5. MODERATE PULMONARY HYPERTENSION. RIGHT VENTRICULAR SYSTOLIC PRESSURE
[2024-09-06] MEDS ORDERED: RIVAROXABAN 15 MG TABLET PO SCH (12:30)
[2024-09-06] MEDS: RIVAROXABAN 20 MG TABLET PO SCH (16:03)
[2024-09-06] MEDS: POLYETHYL GLY 3350 17 GM/DOSE PO SCH (18:29)
[2024-09-06] MEDS: predniSONE 20 MG TAB PO SCH (20:08)
[2024-09-06] MEDS: LORazepam 2 MG/ML VIAL IV ONE (22:45)
[2024-09-07 05:43] LABS: Absolute Lymphocytes (CBC) 0.1 K/uL (0.7-4.9); Absolute Monocytes 0.2 K/uL (0.1-1.3); Absolute Neutrophil 6.5 K/uL (1.8-8.0); Basophils % 0.1 % (0-1.3); Hemoglobin 8.3 g/dL (13.6-17.9); Lymphocytes % 1.8 % (15.3-44.8); MCH 30.3 pg (27.0-35.0); MCHC 30.8 g/dL (32.0-36.0); MCV 98.5 fL (80-100); MPV 10.6 fL (7.6-11.3); Monocytes % 2.9 % (3.3-12.3); Neutrophils % 95.2 % (41.7-73.7); Platelets 107 thou/uL (152-406); RBC Red Blood Cell Count 2.74 M/uL (4.33-5.43); Red Cell Distribution Width 16.8 % (12.1-15.2)
[2024-09-07 06:11] LABS: Anion Gap 2.9 mEq/L (5.0-15.0); Magnesium 2.4 mg/dL (1.6-2.4); Phosphorus 3.4 mg/dL (2.5-4.9); Potassium 3.9 mEq/L (3.5-5.1)
--- NOTE | 2024-09-07 10:28 | P.PN ---
Subjective Date of Service: 09/07/24 Chief Complaint: Acute on chronic respiratory failure Subjective: Improving He says he continued to get better, less shortness of breath, denied any chest pain or dizziness or wheezing. Heparin infusion stopped, continue on 2.5 mg/h furosemide infusion, metoprolol on hold for borderline hypotension Review of Systems Other: Consitutional; fever(-), chills (-), rigor(-), night sweat(-), unintentional weight loss(-), malaise (-) HEENT; diplopia (-), rhinorrhea (-), epistaxis (-), otorrhea (-), otalgia (-) Respiratory; shortness of breath (+), wheezing (-), cough (+), sputum (+), pleuritic chest pain (-) Cardiovascular; chest pain (-), peripheral edema (-), paroxysmal nocturnal dyspnea (-), orthopnea (-) Gastrointestinal; nausea (-), vomiting (-), abdominal pain (-), diarrhea (-), constipation (-), melena (-), hematochezia (-) Genitourinary; urinary frequency (-), dysuria (-), urgency (-), flank pain (-), gross hematuria (-), incontinence (-) Skin; rash (-), pruritus (-) 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 General: Cachectic, chronic ill-looking, in no apparent distress,. HEENT: Normocephalic, atraumatic, nonicteric sclera, nonanemic conjunctive. Neck: Supple, without JVD or goiter or thyroid mass. Respiratory: Decreased breath sound bilaterally, no crackles no wheezing or rhonchi. Cardiovascular: Distant heart sound. Gastrointestinal: Normal bowel sounds, nondistended, nontender, No ascites, , No masses, no hepatosplenomegaly. Extremities l: No clubbing, No peripheral edema, full range of motion, no deformity, no muscle atrophy. Integumentary: No rashes, petechia, suspected lesions. Lymphatics: No axilla or cervical lymphadenopathy. Neurology; alert awake oriented x3, no focal neurologic deficit, normal affection . mood and behavior. - Studies Medications List Reviewed: Yes Assessment And Plan - Plan This is a 64 years old gentleman with complex medical problem including COPD on home oxygen, hypertension, coronary artery disease, paroxysmal A-fib, congestive heart failure status post AICD, hypertension old stroke who presented to emergency room for evaluation of shortness of breath and admitted for #1 acute on chronic hypoxic and hypercapnic respiratory failure related to #2 Repeat ABG improved, pH is 7.33, pCO2 down to 83 mmHg from 137 mmHg, Continue BiPAP and nasal cannula, pulmonology on board #2 acute exacerbation of COPD Test negative for COVID-19 and influenza A and B, chest x-ray no acute abnormality but markedly hyperinflated lungs, no leukocytosis, afebrile, oral prednisone 20 mg twice daily, scheduled DuoNeb, I agree with reducing system operator to discontinue antibiotics #3 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, dilated cardiomyopathy, [place] heart association heart failure class IV Blood pressure is borderline, only tolerated low-dose metoprolol 12.5 in furosemide infusion 2.5 mg/h, clinically euvolemia, urine output 1.2 L over the past 24 hours old transthoracic cardiogram reviewed, dilated CMP, ejection fraction 10 to 15%, severe MR and TR, pulmonary hypertension #4 atrial fibrillation with controlled ventricle response Continue on amiodarone, metoprolol on hold for borderline hypotension #5 glucocorticoid induced hyperglycemia Last hemoglobin A1c was normal at 5.5 in 2022, resume her glycemic control, I will keep him on moderate dose insulin sliding scale, #6 presumed anemia of chronic disease Hemoglobin 8-9, no transfusion indicated, no clinical bleeding. #7 thrombocytopenia Platelet improved to 107K clinically suspected heparin-induced thrombocytopenia, platelet factor 4 antibody ordered, pending, heparin infusion discontinued #8 elevated troponin and a lactate secondary to hypoxia DVT prophylaxis; rivaroxaban Disposition; he has a poor prognosis and serious multiple comorbidity, continue to need ICU care
--- NOTE | 2024-09-07 13:11 | P.PN ---
Subjective Date of Service: 09/07/24 Chief Complaint: Acute on chronic respiratory failure Subjective: No new changes, No C/O voiced, Tolerating diet, Ambulating, Improving Review of Systems 10-point ROS is otherwise unremarkable Physical Examination - Vital Signs Temperature: 98.2 F Blood Pressure: 110/64 Pulse: 95 Respirations: 24 Pulse Ox (%): 100 - Physical Exam General: Alert, In no apparent distress HEENT: Atraumatic, PERRLA, EOMI Neck: Supple, JVD not distended Respiratory: Clear to auscultation bilaterally, Normal air movement Cardiovascular: Regular rate/rhythm, Normal S1 S2 Gastrointestinal: Normal bowel sounds, No tenderness Musculoskeletal: No tenderness Integumentary: No rashes Neurological: Normal speech, Normal tone, Normal affect Lymphatics: No axilla or inguinal lymphadenopathy Other Physical/Emotional Findings: - Physical Exam. General: Cachectic, chronic ill-looking, in no apparent distress,. HEENT: Normocephalic, atraumatic, nonicteric sclera, nonanemic conjunctive. Neck: Supple, without JVD or goiter or thyroid mass. Respiratory: Decreased breath sound bilaterally, no crackles no wheezing or rhonchi. Cardiovascular: Distant heart sound. Gastrointestinal: Normal bowel sounds, nondistended, nontender, No ascites, , No masses, no hepatosplenomegaly. Extremities l: No clubbing, No peripheral edema, full range of motion, no deformity, no muscle atrophy. Integumentary: No rashes, petechia, suspected lesions. Lymphatics: No axilla or cervical lymphadenopathy. Neurology; alert awake oriented x3, no focal neurologic deficit, normal affection . mood and behavior. - Studies Medications List Reviewed: Yes Assessment And Plan - Current Problems (Diagnosis) (1) Chronic combined systolic (congestive) and diastolic (congestive) heart failure Current Visit: Yes Status: Acute Plan: Patient looks euvolemic on exam, CXR, no signs of pulmonary edema but echo shows severe reduced LV systolic function ,severe MR and dilated IVC stop lasix drip Increase Dimaox to 250 mg po BID continue lopressor 12.5 mg po BID continue to monitor volume status (2) Hypercapnic respiratory failure Current Visit: Yes Status: Acute Plan: Patient repeated ABG better, currently on NC (3) NSTEMI (non-ST elevated myocardial infarction) Current Visit: Yes Status: Acute Plan: Mild elevated Troponin, trended down, secondary to heart failure and respiratory failure continue ASA 81 mg daily (4) Atrial fibrillation Current Visit: Yes Status: Acute Plan: continue amiodarone and Xarelto. Cardiology will sign off, please call with any questions.
[2024-09-07] MEDS: acetaZOLAMIDE 250 MG TAB PO SCH (20:29)
[2024-09-08 05:17] LABS: MPV 10.6 fL (7.6-11.3); Platelets 122 thou/uL (152-406)
[2024-09-08 05:45] LABS: Anion Gap 4.4 mEq/L (5.0-15.0); BUN Blood Urea Nitrogen 50 mg/dL (7-18); Glomerular Filtration Rate 66 ml/min (=/>90); Glucose Level 147 mg/dL (74-106); Potassium 4.4 mEq/L (3.5-5.1); Sodium Level 139 mEq/L (136-145)
[2024-09-08 05:46] LABS: Bicarbonate > 45 mEq/L (21-32)
--- NOTE | 2024-09-08 10:12 | P.PN ---
Subjective Date of Service: 09/08/24 Chief Complaint: Acute on chronic respiratory failure Subjective: Improving He says he is feeling better, used BiPAP 8 hours over the past 24-hour, complaining of unable to sleep in ICU trying to catching up on sleep during the day, denied any shortness of breath or chest pain or cough or edema. Review of Systems Other: Consitutional; fever(-), chills (-), rigor(-), night sweat(-), unintentional weight loss(-), malaise (-) HEENT; diplopia (-), rhinorrhea (-), epistaxis (-), otorrhea (-), otalgia (-) Respiratory; shortness of breath (-), wheezing (-), cough (-), sputum (-), pleuritic chest pain (-) Cardiovascular; chest pain (-), peripheral edema (-), paroxysmal nocturnal dyspnea (-), orthopnea (-) Gastrointestinal; nausea (-), vomiting (-), abdominal pain (-), diarrhea (-), constipation (-), melena (-), hematochezia (-) Genitourinary; urinary frequency (-), dysuria (-), urgency (-), flank pain (-), gross hematuria (-), incontinence (-) Skin; rash (-), 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 General: Cachectic, chronic ill-looking, in no apparent distress,. HEENT: Normocephalic, atraumatic, nonicteric sclera, nonanemic conjunctive. Neck: Supple, without JVD or goiter or thyroid mass. Respiratory: Decreased breath sound bilaterally, no crackles no wheezing or rhonchi. Cardiovascular: Distant heart sound. Gastrointestinal: Normal bowel sounds, nondistended, nontender, No ascites, , No masses, no hepatosplenomegaly. Extremities l: No clubbing, No peripheral edema, full range of motion, no deformity, no muscle atrophy. Integumentary: No rashes, petechia, suspected lesions. Lymphatics: No axilla or cervical lymphadenopathy. Neurology; alert awake oriented x3, no focal neurologic deficit, normal affection . mood and behavior. - Studies Medications List Reviewed: Yes Assessment And Plan - Plan This is a 64 years old gentleman with complex medical problem including COPD on home oxygen, hypertension, coronary artery disease, paroxysmal A-fib, congestive heart failure status post AICD, hypertension old stroke who presented to emergency room for evaluation of shortness of breath and admitted for #1 acute on chronic hypoxic and hypercapnic respiratory failure related to #2 Repeat ABG improved, pH is 7.33, pCO2 down to 83 mmHg from 137 mmHg, Continue BiPAP and nasal cannula, pulmonology on board #2 acute exacerbation of COPD Test negative for COVID-19 and influenza A and B, chest x-ray no acute abnormality but markedly hyperinflated lungs, no leukocytosis, afebrile, oral prednisone 20 mg twice daily, scheduled DuoNeb, antibiotics discontinued #3 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, dilated cardiomyopathy, [place] heart association heart failure class IV Blood pressure is borderline, only tolerated low-dose metoprolol 12.5 milligram twice daily , clinically euvolemia, urine output 1.0 L over the past 24 hours Unable to get other guideline directed therapy for borderline hypotension old transthoracic cardiogram reviewed, dilated CMP, ejection fraction 10 to 15%, severe MR and TR, pulmonary hypertension #4 atrial fibrillation with controlled ventricle response Heart rate controlled in 90-100 at rest on amiodarone and metoprolol #5 glucocorticoid induced hyperglycemia Last hemoglobin A1c was normal at 5.5 in 2022, improved after decreased steroid, I will stop insulin sliding scale #6 presumed anemia of chronic disease Hemoglobin 8-9, no transfusion indicated, no clinical bleeding. #7 thrombocytopenia Platelet improved to 107K clinically suspected heparin-induced thrombocytopenia, platelet factor 4 antibody ordered, pending, heparin infusion discontinued #8 elevated troponin and a lactate secondary to hypoxia DVT prophylaxis; rivaroxaban Disposition; he has a poor prognosis and serious multiple comorbidity, continue to need ICU care
[2024-09-08] MEDS: ACETAMINOPHEN 325 MG TABLET PO PRN (12:34)
[2024-09-09 05:34] LABS: Anion Gap 6.8 mEq/L (5.0-15.0); Magnesium 2.6 mg/dL (1.6-2.4); Phosphorus 3.5 mg/dL (2.5-4.9); Potassium 4.8 mEq/L (3.5-5.1)
[2024-09-09 08:55] LABS: Arterial Blood Carboxyhemoglob 1.2 % (0-1.5); Blood Gas Oxyhemoglobin 92.9 % (94-97); Blood Gas THB 7.9 g/dl (12-18); Blood O2 Saturation 94.9 % (92-98.5)
--- NOTE | 2024-09-09 11:34 | P.PN ---
Subjective Date of Service: 09/09/24 Chief Complaint: Acute on chronic respiratory failure Subjective: Improving He has no complaint, tolerating BiPAP well using during the day and night beside mealtime Review of Systems Other: Consitutional; fever(-), chills (-), rigor(-), night sweat(-), unintentional weight loss(-), malaise (-) HEENT; diplopia (-), rhinorrhea (-), epistaxis (-), otorrhea (-), otalgia (-) Respiratory; shortness of breath (+), wheezing (-), cough (+), sputum (-), pleuritic chest pain (-) Cardiovascular; chest pain (-), peripheral edema (-), paroxysmal nocturnal dyspnea (-), orthopnea (-) Gastrointestinal; nausea (-), vomiting (-), abdominal pain (-), diarrhea (-), constipation (-), melena (-), hematochezia (-) Genitourinary; urinary frequency (-), dysuria (-), urgency (-), flank pain (-), gross hematuria (-), incontinence (-) Skin; rash (-), 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 General: Cachectic, chronic ill-looking, in no apparent distress,. HEENT: Normocephalic, atraumatic, nonicteric sclera, nonanemic conjunctive. Neck: Supple, without JVD or goiter or thyroid mass. Respiratory: Decreased breath sound bilaterally, no crackles no wheezing or rhonchi. Cardiovascular: Distant heart sound. Gastrointestinal: Normal bowel sounds, nondistended, nontender, No ascites, , No masses, no hepatosplenomegaly. Extremities l: No clubbing, No peripheral edema, full range of motion, no deformity, no muscle atrophy. Integumentary: No rashes, petechia, suspected lesions. Lymphatics: No axilla or cervical lymphadenopathy. Neurology; alert awake oriented x3, no focal neurologic deficit, normal affection . mood and behavior. - Studies Medications List Reviewed: Yes Assessment And Plan - Plan This is a 64 years old gentleman with complex medical problem including COPD on home oxygen, hypertension, coronary artery disease, paroxysmal A-fib, congestive heart failure status post AICD, hypertension old stroke who presented to emergency room for evaluation of shortness of breath and admitted for #1 acute on chronic hypoxic and hypercapnic respiratory failure related to #2 Repeat ABG ordered today and reviewed. Improving, pH is 7.37, pCO2 further down to 80 mmHg from 137 mmHg, Continue BiPAP at the current setting and nasal cannula, #2 acute exacerbation of COPD Test negative for COVID-19 and influenza A and B, chest x-ray no acute abnormality but markedly hyperinflated lungs, no leukocytosis, afebrile, Keep on oral prednisone 20 mg twice daily, scheduled DuoNeb, antibiotics discontinued #3 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, dilated cardiomyopathy, [place] heart association heart failure class IV Blood pressure is borderline, only tolerated low-dose metoprolol 12.5 milligram twice daily , clinically euvolemia, urine output 1.0 L over the past 24 hours Unable to get other guideline directed therapy for borderline hypotension old transthoracic cardiogram reviewed, dilated CMP, ejection fraction 10 to 15%, severe MR and TR, pulmonary hypertension #4 atrial fibrillation with controlled ventricle response Heart rate controlled in 90-100 at rest on amiodarone and metoprolol #5 glucocorticoid induced hyperglycemia Resolved after tapering down steroid,.last hemoglobin A1c was normal at 5.5 in 2022, #6 presumed anemia of chronic disease Hemoglobin 8-9, no transfusion indicated, no clinical bleeding. #7 thrombocytopenia Platelet improved to 107K after heparin infusion ,clinically suspected heparin- induced thrombocytopenia, platelet factor 4 antibody ordered, pending, #8 elevated troponin and lactate secondary to hypoxia #9 pulmonary cachexia DVT prophylaxis; rivaroxaban Disposition; he has a poor prognosis and serious multiple comorbidity, continue to need ICU care for BiPAP
[2024-09-09] MEDS: ONDANSETRON 4 MG/2 ML VIAL IV PRN (13:35)
--- NOTE | 2024-09-09 14:42 | RAD REPORT ---
EXAMINATION: ONE VIEW CHEST XR CLINICAL INDICATION: Dyspnea TECHNIQUE: Frontal chest projection is submitted. Examination is limited by patient positioning and t echnique. COMPARISON: 09/04/2024, 04/03/2024 FINDINGS: Lungs appear emphysematous. Moderate reticulonodular infiltrates are present bilaterally, greater on the left, likely representing pneumonia. A more confluent lung consolidation is probably present in the left base. The heart is upper limit of normal in size. No displaced fractures identified. Single -lead pacer/defibrillator. IMPRESSION: Moderate reticulonodular infiltrates have developed since the prior study. Most likely these represen t findings secondary to infection/pneumonia.
[2024-09-09] MEDS: Levofloxacin 750mg IV 750 MG/150 ML BAG IV SCH (16:04)
[2024-09-09] MEDS: CEFEPIME 2 GM in NA CHLORIDE 0.9% 100 ML IV SCH (20:41)
[2024-09-10 06:16] LABS: Absolute Lymphocytes (CBC) 0.4 K/uL (0.7-4.9); Absolute Monocytes 0.6 K/uL (0.1-1.3); Absolute Neutrophil 5.4 K/uL (1.8-8.0); Basophils % 0.2 % (0-1.3); Hematocrit 24.1 % (39.6-49.0); Hemoglobin 7.6 g/dL (13.6-17.9); Lymphocytes % 6.6 % (15.3-44.8); MCH 30.6 pg (27.0-35.0); MCHC 31.4 g/dL (32.0-36.0); MCV 97.5 fL (80-100); MPV 11.8 fL (7.6-11.3); Monocytes % 9.6 % (3.3-12.3); Neutrophils % 83.6 % (41.7-73.7); Nucleated Red Blood Cells % 0.2 % (0-0); Platelets 87 thou/uL (152-406); RBC Red Blood Cell Count 2.47 M/uL (4.33-5.43); Red Cell Distribution Width 16.4 % (12.1-15.2)
[2024-09-10 06:50] LABS: Albumin 2.8 g/dL (3.4-5.0); Albumin/Globulin Ratio 0.9 (1.1-1.8); Anion Gap 6.8 mEq/L (5.0-15.0); Bilirubin Total 0.6 mg/dL (0.2-1.0); Magnesium 2.7 mg/dL (1.6-2.4); Phosphorus 3.9 mg/dL (2.5-4.9); Potassium 4.8 mEq/L (3.5-5.1); Protein, Total 5.8 g/dL (6.4-8.2)
[2024-09-10 08:28] LABS: Anisocytosis SLIGHT; Atypical Lymphocytes 1 %; Blood Morphology Comment NOTED (NOT SEEN); Differential Total Cells Count 100; Hypochromasia 1+; Lymphocytes 9 % (15-42); Metamyelocytes 1 % (0-0); Monocytes 4 % (0-10); Platelet Estimate DECR; Segmented Neutrophils 85 % (40-80)
[2024-09-10 08:29] LABS: Basophilic Stippling 1+
[2024-09-10] MEDS: ENSURE ENLIVE 237 ML CAN PO SCH (13:19)
[2024-09-10] MEDS: ALBUMIN HUMAN 25% 100 ML IV ONE (17:52)
[2024-09-11] MEDS: METHYLPREDNISOLONE 40 MG INJ IV SCH ×2 (00:51→21:50)
[2024-09-11 05:55] LABS: Anion Gap 7.2 mEq/L (5.0-15.0); Magnesium 2.9 mg/dL (1.6-2.4); Potassium 5.2 mEq/L (3.5-5.1)
--- NOTE | 2024-09-11 10:07 | P.PN ---
Subjective Date of Service: 09/11/24 Patient is a 64-year-old gentleman who is well-known to me from multiple admissions for COPD exacerbation. Patient is to be very noncompliant and becomes disruptive while he is in the hospital. However, currently he is very lethargic and obtunded and answers questions with minimal response. Patient has lost quite a bit of weight and his BMI is only 15. Patient is severely malnourished. Patient with significant muscular atrophy. Patient is not wanting to eat anything. Had a long conversation about a feeding tube; however, he is reluctant at this time. He looks very lethargic and not really able to have a detailed conversation. I did try to get a hold of family but was unsuccessful. Patient has not been diagnosed with a malignancy, but he does have advanced COPD. Patient has declined quite remarkably and his prognosis is poor. We also talked him about DNAR status, but right now he wants everything done. We will continue with aggressive management of his pneumonia and COPD. Review of Systems is unable to be obtained Physical Examination - Vital Signs Temperature: 98.0 F Blood Pressure: 96/61 Pulse: 95 Respirations: 16 Pulse Ox (%): 93 - Physical Exam General: Alert, In no apparent distress, Cachectic, Disheveled, Confused Respiratory: Diminished, Expiratory wheezes Cardiovascular: Regular rate/rhythm, Normal S1 S2, Systolic murmur Gastrointestinal: Hypoactive, Soft and benign, Non-distended, No tenderness, Other (Scaphoid abdomen) Musculoskeletal: No clubbing, No swelling, No tenderness Integumentary: No rashes Neurological: Normal speech, Normal tone, Sensation intact, Cranial nerves 3-12 intact, Abnormal strength, Abnormal affect Lymphatics: No axilla or inguinal lymphadenopathy - Studies Medications List Reviewed: Yes Assessment & Plan - Problems (Diagnosis) (1) Acute and chronic respiratory failure with hypercapnia Current Visit: Yes Status: Acute (2) Atrial fibrillation Current Visit: Yes Status: Acute (3) Chronic combined systolic (congestive) and diastolic (congestive) heart failure Current Visit: Yes Status: Acute (4) CVA (cerebral vascular accident) Onset Date: 03/14/18 Current Visit: No Status: Acute Qualifiers: (5) Depression Current Visit: No Status: Acute Qualifiers: Depression Type: major depressive disorder (6) Pulmonary hypertension Current Visit: No Status: Acute (7) Bicytopenia Current Visit: Yes Status: Resolved (8) CEE (acute kidney injury) Current Visit: Yes Status: Acute (9) Uremia Current Visit: Yes Status: Acute - Plan 1. Patient with acute on chronic hypercapnic respiratory failure secondary to COPD exacerbation; continue with nebs, steroids, and antibiotics. Patient looks to have a pneumonic process on his x-rays as well. Will get advanced imaging studies including CT chest/abdomen/pelvis. O2 per protocol. BiPAP support as needed. Patient was started on acetazolamide but because renal function is worsening we will decrease this as well. 2. Heart failure with reduced ejection fraction; echocardiogram with an ejection fraction of 10 to 15%. Patient with a defibrillator placed. Patient also with diastolic dysfunction with elevated filling pressures. Patient with severe mitral regurgitation; cardiology consulted. Patient on acetazolamide. However with acute on chronic renal failure will decrease the dose. Will monitor volume status and may need to add Lasix dose. However, prognosis is poor. 3. Patient with cardiorenal syndrome; patient with worsening renal function. Patient with significant uremia. Patient with echocardiogram with significantly elevated right atrial pressures with severe pulmonary hypertension. Most likely elevated renal venous pressures with decreased renal perfusion. Monitor volume status closely. Patient's prognosis remains very poor. Patient ejection fraction is 10 to 15% and with this unlikely to assist in improvement of renal perfusion patient is most likely headed towards renal failure. Will continue with diuresing. Will consult nephrology. Patient has been seen by Dr. Hargrove in the last year. 4. Severe pulmonary hypertension with elevated right atrial pressures; may benefit from sildenafil. However, prognosis remains very grim. 5. Severe malnutrition; patient unlikely to recover and will need feeding tube. However high risk for any surgical procedure because of his poor pulmonary and cardiac status. Will discuss with surgery and will try to get a hold of additional family members to discuss his prognosis 6. Bicytopenia; patient with anemia and thrombocytopenia. This is most likely related to nutritional status. Will monitor counts closely. Will get iron studies and B12 studies as well as folic acid. Will review peripheral smear. May need transfusion. Monitor volume status if patient requiring transfusion. Once again his prognosis is very poor. Will discuss with him regarding his clinical status. Patient would most likely benefit from palliative care. Discharge Plan: Other Plan to discharge in: Greater than 2 days - Advance Directives Does patient have a Living Will: No Does patient have a Durable POA for Healthcare: No - Code Status/Comfort Care Code Status: Full Code Critical Care: Yes Time Spent Managing PTS Care (In Minutes): 60
--- NOTE | 2024-09-11 10:26 | P.PN ---
Date of Service: 09/10/24 Subjective Patient chart reviewed. Events in the last 24 hours noted. Patient continues to do poorly. Not eating or drinking. Not really responding well with therapy although his oxygenation has improved. Physical Examination - Vital Signs Reviewed - Physical Exam General: Alert, In no apparent distress, Cachectic, Disheveled, Confused Respiratory: Diminished, Expiratory wheezes Cardiovascular: Regular rate/rhythm, Normal S1 S2, Systolic murmur Gastrointestinal: Hypoactive, Soft and benign, Non-distended, No tenderness, Other (Scaphoid abdomen) Musculoskeletal: No clubbing, No swelling, No tenderness Integumentary: No rashes Neurological: Normal speech, Normal tone, Sensation intact, Cranial nerves 3-12 intact, Abnormal strength, Abnormal affect Lymphatics: No axilla or inguinal lymphadenopathy Assessment & Plan - Problems (Diagnosis) (1) Acute and chronic respiratory failure with hypercapnia Current Visit: Yes Status: Acute (2) Atrial fibrillation Current Visit: Yes Status: Acute (3) Chronic combined systolic (congestive) and diastolic (congestive) heart failure Current Visit: Yes Status: Acute (4) CVA (cerebral vascular accident) Onset Date: 03/14/18 Current Visit: No Status: Acute Qualifiers: (5) Depression Current Visit: No Status: Acute Qualifiers: Depression Type: major depressive disorder (6) Pulmonary hypertension Current Visit: No Status: Acute (7) Bicytopenia Current Visit: Yes Status: Resolved (8) CEE (acute kidney injury) Current Visit: Yes Status: Acute (9) Uremia Current Visit: Yes Status: Acute - Plan Continue with plan of care as mentioned below: 1. Patient with acute on chronic hypercapnic respiratory failure secondary to COPD exacerbation; continue with nebs, steroids, and antibiotics. Patient looks to have a pneumonic process on his x-rays as well. Will get advanced imaging studies including CT chest/abdomen/pelvis. O2 per protocol. BiPAP support as needed. Patient was started on acetazolamide but because renal function is worsening we will decrease this as well. 2. Heart failure with reduced ejection fraction; echocardiogram with an ejection fraction of 10 to 15%. Patient with a defibrillator placed. Patient also with diastolic dysfunction with elevated filling pressures. Patient with severe mitral regurgitation; cardiology consulted. Patient on acetazolamide. However with acute on chronic renal failure will decrease the dose. Will monitor volume status and may need to add Lasix dose. However, prognosis is poor. 3. Patient with cardiorenal syndrome; patient with worsening renal function. Patient with significant uremia. Patient with echocardiogram with significantly elevated right atrial pressures with severe pulmonary hypertension. Most likely elevated renal venous pressures with decreased renal perfusion. Monitor volume status closely. Patient's prognosis remains very poor. Patient ejection fraction is 10 to 15% and with this unlikely to assist in improvement of renal perfusion patient is most likely headed towards renal failure. Will continue with diuresing. Will consult nephrology. Patient has been seen by Dr. Hargrove in the last year. 4. Severe pulmonary hypertension with elevated right atrial pressures; may benefit from sildenafil. However, prognosis remains very grim. 5. Severe malnutrition; patient unlikely to recover and will need feeding tube. However high risk for any surgical procedure because of his poor pulmonary and cardiac status. Will discuss with surgery and will try to get a hold of additional family members to discuss his prognosis 6. Bicytopenia; patient with anemia and thrombocytopenia. This is most likely related to nutritional status. Will monitor counts closely. Will get iron studies and B12 studies as well as folic acid. Will review peripheral smear. May need transfusion. Monitor volume status if patient requiring transfusion. Once again his prognosis is very poor. Will discuss with him regarding his clinical status. Patient would most likely benefit from palliative care. Discharge Plan: Other Plan to discharge in: Greater than 2 days - Advance Directives Does patient have a Living Will: No Does patient have a Durable POA for Healthcare: No - Code Status/Comfort Care Code Status: Full Code Critical Care: Yes Time Spent Managing PTS Care (In Minutes): 60
--- NOTE | 2024-09-11 11:55 | P.CNS ---
Date of Consult: 09/11/24 Reason for Consult: CEE, azotemia, CRS Requesting Physician: Dedrick Parish Chief Complaint: Acute on chronic respiratory failure History of Present Illness: 64 yrs old Male whose history is obtained mostly through chart review as pt is on NIPPV and not able to provide sig history. Pt per reports has a past medical history of COPD, unspecified CVA, CAD, severe CHF status post pacemaker placement, who came in several days ago with shortness of breath. EMS reportedly found pt found on couch poorly responsive, and hypoxic. Pt admitted with hypercarbic resp failure. TTE showed sig global hypokinesis and LVEF dysfunction. Pt remains in the ICU and now renal function worse. Allergies No Known Allergies Allergy (Verified 09/12/23 00:32) Home Medications: Fluticasone/Umeclidin/Vilanter [Trelegy Ellipta 100-62.5-25] 1 each IH DAILY 30 Days #1 inhaler 09/15/23 Albuterol Neb [Proventil 0.083% Neb Soln] 2.5 mg IH Q6H 10/17/23 Albuterol Sulfate [Albuterol Sulfate Hfa] 2 puff IH PRN PRN 10/17/23 Citalopram [Celexa*] 10 mg PO DAILY 30 Days #30 tab 02/07/24 Nicotine [Nicoderm*] 21 mg TD DAILY 42 Days #42 patch 02/07/24 Rivaroxaban [Xarelto] 20 mg PO DAILY AT SUPPER 30 Days #30 tab 03/22/24 Albuterol Neb [Proventil 0.083% Neb Soln] 2.5 mg NEB [id number] PRN #120 amp 03/29/24 Amiodarone HCl [Cordarone*] 200 mg PO BID #60 tab 03/29/24 Benzonatate [Tessalon Perle*] 100 mg PO TID PRN #30 cap 03/29/24 Ensure Enlive 237 ml PO BID #30 can 03/29/24 Furosemide [Lasix*] 20 mg PO DAILY #30 tab 03/29/24 Ipratropium Neb [Atrovent*] 0.5 mg NEB [id number] PRN #120 amp 03/29/24 Quetiapine [Seroquel*] 25 mg PO BEDTIME #30 tab 03/29/24 Thiamine HCl [Vitamin B-1*] 200 mg PO DAILY #60 tab 03/29/24 acetaZOLAMIDE [Acetazolamide] 250 mg PO DAILY #30 tab 03/29/24 predniSONE [Deltasone*] 10 mg PO DAILY #5 tab 03/29/24 Metoprolol Tartrate [Lopressor*] 12.5 mg PO BID 30 Days #30 tab 04/05/24 - Past Medical/Surgical History Diabetic: No -: COPD -: Paroxysmal Afib -: HTN -: Tobacco abuse -: TIA -: skull fx -: defibrilator -: Home O2 -: Hx Hyponatremia (Dr. Hargrove/ Dr. Menjivar) -: BUE thromus started eliquis -: SEVERELY CHF, EF 10-15% -: Appendectomy -: ICM with AICD Psychosocial/ Personal History: Patient lives with a girlfriend at home - Family History Father Medical History: Diabetes Mother Medical History: Diabetes - Social History Smoking Status: Current every day smoker Alcohol use: No CD- Drugs: No Caffeine use: No Review of Systems is unable to be obtained Physical Examination Temp Pulse Resp BP Pulse Ox 98.0 F 95 H 16 96/61 93 09/11/24 10:24 09/11/24 10:24 09/11/24 10:24 09/11/24 10:24 09/11/24 10:24 General: Other (Chronically ill appearing, cachectic ) HEENT: Normocephalic, Other (BIPAP mask) Neck: Other (JVD difficult to obtain) Respiratory: Other (b/l BS, reduced at bases) Cardiovascular: Other (Mild tachy, cardiac murmur), Gallops Gastrointestinal: Soft and benign, Non-distended, No guarding Musculoskeletal: No swelling, Other (muscle mass loss) Integumentary: No rashes Neurological: Other (Awakens with stimuli, briefly nods, no tremors or myoclonus noted) Conclusions/Impression: A/P) 1. Stage II CEE 2nd to likely ischemic ATN developing in the setting of renal hypoperfusion with severe cardiomyopathy, low CO state, relative hypotension, elevated filling pressures with associated CRS, severe hypercarbia which has its own renal plasma flow effects and other. UOP has dropped, dark. 2. Complicated hemodynamics/fluid status, with suspected renal hypoperfusion, can try a small challenge of intravascular vol with isotonic NS IVF, 250 cc at 50 cc/hr. Monitor UOP closely to see if he remains oliguric. May follow up with loop diuretics and/or continue Diamox for now 3. Metab alkalosis, compensatory for resp acidosis 2nd to hypercarbia and CHF. pH on last ABG was ok. Cont NIPPV, cont diamox for now. 4. Severe cardiomyopathy unspecified. Acute on chronic systolic + diastolic CHF, pulm HTN 2nd to left sided heart disease. 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 Marito Menjivar MD, EMILIO
[2024-09-11] MEDS: NA CHLORIDE 0.9% 250 ML IV ONE (12:07)
[2024-09-11 12:22] LABS: Absolute Lymphocytes (CBC) 0.1 K/uL (0.7-4.9); Absolute Monocytes 0.3 K/uL (0.1-1.3); Absolute Neutrophil 4.3 K/uL (1.8-8.0); Basophils % 0.3 % (0-1.3); Hematocrit 21.2 % (39.6-49.0); Hemoglobin 6.4 g/dL (13.6-17.9); MCH 30.3 pg (27.0-35.0); MCV 101.1 fL (80-100); MPV 12.6 fL (7.6-11.3); Monocytes % 6.3 % (3.3-12.3); Neutrophils % 90.4 % (41.7-73.7); Nucleated Red Blood Cells % 0.5 % (0-0); Platelets 72 thou/uL (152-406); Red Cell Distribution Width 17.2 % (12.1-15.2)
[2024-09-11 13:06] LABS: Albumin 2.9 g/dL (3.4-5.0); Anion Gap 9.9 mEq/L (5.0-15.0); Bilirubin Total 1.1 mg/dL (0.2-1.0); Globulin 2.9 g/dL (2.3-3.5); Potassium 4.9 mEq/L (3.5-5.1); Protein, Total 5.8 g/dL (6.4-8.2)
[2024-09-11] MEDS ORDERED: SODIUM ZIRCONIUM CYCLOSILICATE 10 GM/PKT PO SCH (14:00)
[2024-09-11] MEDS: RIVAROXABAN 10 MG TABLET PO SCH (17:33)
[2024-09-11] MEDS: NA CHLORIDE 0.9% 250 ML ONE (19:34)
[2024-09-11] MEDS: NA CHLORIDE 0.9% 250 ML IV SCH (19:42)
[2024-09-11] MEDS: ACETAZOLAMIDE 500 MG IV IV SCH (21:49)
[2024-09-11] MEDS: AMIODARONE HCL 200 MG TAB PO SCH (21:51)
[2024-09-12 05:25] LABS: Absolute Lymphocytes (CBC) 0.1 K/uL (0.7-4.9); Absolute Monocytes 0.4 K/uL (0.1-1.3); Absolute Neutrophil 6.2 K/uL (1.8-8.0); Basophils % 0.4 % (0-1.3); Hematocrit 21.8 % (39.6-49.0); Hemoglobin 6.7 g/dL (13.6-17.9); Lymphocytes % 1.5 % (15.3-44.8); MCHC 30.9 g/dL (32.0-36.0); MCV 97.1 fL (80-100); MPV 12.8 fL (7.6-11.3); Monocytes % 5.5 % (3.3-12.3); Nucleated RBC Absolute Count 0.1 (0-0); Nucleated Red Blood Cells % 0.9 % (0-0); Platelets 75 thou/uL (152-406); RBC Red Blood Cell Count 2.24 M/uL (4.33-5.43); Red Cell Distribution Width 18.4 % (12.1-15.2)
[2024-09-12 05:33] LABS: Neutrophils % 92.6 % (41.7-73.7)
[2024-09-12 05:52] LABS: Albumin 2.9 g/dL (3.4-5.0); Anion Gap 7.6 mEq/L (5.0-15.0); Bilirubin Total 1.4 mg/dL (0.2-1.0); Globulin 2.8 g/dL (2.3-3.5); Magnesium 2.7 mg/dL (1.6-2.4); Phosphorus 5.8 mg/dL (2.5-4.9); Potassium 4.6 mEq/L (3.5-5.1); Protein, Total 5.7 g/dL (6.4-8.2)
[2024-09-12] MEDS: CEFEPIME 1 GM in NA CHLORIDE 0.9% 100 ML IV SCH (08:32)
[2024-09-12] MEDS ORDERED: acetaZOLAMIDE 250 MG TAB PO SCH (09:00)
[2024-09-12] MEDS ORDERED: SODIUM CHLORIDE 0.9% 10ML INJ IV PRN (12:33)
--- NOTE | 2024-09-12 12:41 | P.PN ---
Nephrology note (S) Pt remains in the ICU, remains NIPPV/BIPAP dependent, UOP borderline oliguric, BP acceptable, not requiring pressors or ionotropic support. H/H remains low despite transfusion (O) vitals reviewed in the EMR General: Other (Chronically ill appearing, cachectic ) HEENT: Normocephalic, Other (BIPAP mask) Neck: Other (JVD difficult to obtain) Respiratory: Other (b/l BS, reduced at bases) Cardiovascular: Other (Mild tachy, cardiac murmur), Gallops Gastrointestinal: Soft and benign, Non-distended, No guarding Musculoskeletal: No swelling, Other (muscle mass loss) Integumentary: No rashes Neurological: Other (Awakens with stimuli, briefly nods, no tremors or myoclonus noted) Conclusions/Impression: A/P) 1. Stage II CEE 2nd to likely some ischemic ATN developing in the setting of renal hypoperfusion with severe cardiomyopathy, low CO state, relative hypotension, elevated filling pressures with associated CRS, severe hypercarbia which has its own renal plasma flow effects and other. UOP borderline oliguric. Cont to monitor closely 2. Complicated hemodynamics/fluid status, with suspected renal hypoperfusion, did yesterday try a small challenge of intravascular vol with isotonic NS IVF, 250 cc at 50 cc/hr and also received 1 unit PRBC but with H/H remaining quite low, recommend another unit today and following up with IV lasix Monitor UOP closely to see if he remains oliguric. 3. Metab alkalosis, compensatory for resp acidosis 2nd to hypercarbia and CHF. pH on last ABG was ok. Cont NIPPV, cont diamox for now. 4. Severe cardiomyopathy unspecified. Acute on chronic systolic + diastolic CHF, pulm HTN 2nd to left sided heart disease. 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 Acute on chronic anemia, multifactorial. Thrombocytopenia. Defer w/u to primary team. Ordered additional 1 unit PRBC today. Ordered PPI for GI ppx as pt on steroids and anticoagulant therapy. Defer continuation of anticoagulation therapy to IM team. Recommend goals of care discussion, code status clarification and will cont to monitor closely along with the other providers. Marito Menjivar MD, EMILIO
[2024-09-12] MEDS ORDERED: FUROSEMIDE 20 MG/ 2ML VIAL IV ONE ×2 (13:00→17:00)
[2024-09-12] MEDS: NA CHLORIDE 0.9% 250 ML ONE (13:22)
[2024-09-12] MEDS: PANTOPRAZOLE 40 MG INJ IVP SCH (13:53)
[2024-09-12 18:18] LABS: Hematocrit 23.5 % (39.6-49.0); Hemoglobin 7.5 g/dL (13.6-17.9)
[2024-09-12] MEDS: FUROSEMIDE 20 MG/ 2ML VIAL IV ONE (20:04)
[2024-09-13 06:05] LABS: Absolute Lymphocytes (CBC) 0.1 K/uL (0.7-4.9); Percent Reticulocyte Count 2.56 % (0.4-2.05)
[2024-09-13 06:11] LABS: Absolute Monocytes 0.5 K/uL (0.1-1.3); Absolute Neutrophil 6.9 K/uL (1.8-8.0); Basophils % 0.1 % (0-1.3); Hematocrit 21.5 % (39.6-49.0); Hemoglobin 7.1 g/dL (13.6-17.9); Lymphocytes % 1.6 % (15.3-44.8); MCH 30.5 pg (27.0-35.0); MCHC 33.1 g/dL (32.0-36.0); MCV 92.3 fL (80-100); MPV 12.1 fL (7.6-11.3); Monocytes % 6.1 % (3.3-12.3); Neutrophils % 92.2 % (41.7-73.7); Nucleated RBC Absolute Count 0.1 (0-0); Nucleated Red Blood Cells % 1.4 % (0-0); Platelets 88 thou/uL (152-406); RBC Red Blood Cell Count 2.32 M/uL (4.33-5.43); Red Cell Distribution Width 17.1 % (12.1-15.2)
[2024-09-13 06:17] LABS: PT Prothrombin Time 21.8 SECONDS (9.4-12.5); PTT, Activated Partial Thromb 29.4 SECONDS (24.3-36.9); Protime INR 1.99
[2024-09-13 07:06] LABS: Albumin 2.8 g/dL (3.4-5.0); Anion Gap 8.6 mEq/L (5.0-15.0); Bilirubin Total 1.7 mg/dL (0.2-1.0); Globulin 2.7 g/dL (2.3-3.5); Magnesium 2.9 mg/dL (1.6-2.4); Phosphorus 4.7 mg/dL (2.5-4.9); Potassium 4.6 mEq/L (3.5-5.1); Protein, Total 5.5 g/dL (6.4-8.2); Troponin High Sensitivity 48.8 pg/mL (<58.9)
[2024-09-13 08:12] LABS: Blood Morphology Comment NOT SEEN (NOT SEEN); Platelet Estimate DECR; Platelets, Giant NOTED; White Blood Cell Scan OK (OK)
[2024-09-13] MEDS: FUROSEMIDE 40 MG/4 ML VIAL IV SCH (10:28)
--- NOTE | 2024-09-13 10:37 | P.PN ---
Nephrology note (S) Pt remains in the ICU, remains NIPPV/BIPAP dependent, desats on HFNC when on for about 30 min or so per reports, UOP improved, BP acceptable, not requiring pressors or ionotropic support. H/H remains low despite transfusion (O) vitals reviewed in the EMR General: Other (Chronically ill appearing, cachectic ) HEENT: Normocephalic, Other (BIPAP mask) Neck: Other (JVD difficult to obtain) Respiratory: Other (b/l BS, reduced at bases) Cardiovascular: Other (Mild tachy, cardiac murmur), Gallops Gastrointestinal: Soft and benign, Non-distended, No guarding Musculoskeletal: No swelling, Other (muscle mass loss) Integumentary: No rashes Neurological: Other (Awakens with stimuli, briefly nods, no tremors or myoclonus noted) Conclusions/Impression: A/P) 1. Stage II CEE 2nd to likely some ischemic ATN developing in the setting of renal hypoperfusion with severe cardiomyopathy, low CO state, relative hypotensi on, elevated filling pressures with associated CRS, severe hypercarbia which has its own renal plasma flow effects and other. UOP borderline oliguric in prior days but a bit better in the last 12-24h. Cont to monitor closely 2. Complicated hemodynamics/fluid status, with suspected renal hypoperfusion earlier in the week, did try a small challenge of intravascular vol with isotonic NS IVF, 250 cc at 50 cc/hr and also received 2 unit PRBC in past days but with H/H remaining quite low. With bed weight back up, BNP 40K plus, will reintroduce scheduled lasix diuretics 3. Metab alkalosis, compensatory for resp acidosis 2nd to hypercarbia and CHF. pH on last ABG was ok. Bicarb levels stable. Cont NIPPV, cont diamox for now. 4. Severe cardiomyopathy unspecified. Acute on chronic systolic + diastolic CHF, pulm HTN 2nd to left sided heart disease. 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 Acute on chronic anemia, multifactorial. Thrombocytopenia. Defer w/u to primary team. Ordered additional 1 unit PRBC yesterday. Ordered PPI for GI ppx as pt on steroids and anticoagulant therapy. Defer continuation of anticoagulation therapy to IM team. Recommend goals of care discussion, code status clarification and will cont to monitor closely along with the other providers. Marito Menjivar MD, EMILIO
[2024-09-13] MEDS: ALPRAZOLAM 0.5 MG TABLET PO ONE (16:34)
[2024-09-13] MEDS: ALBUMIN HUMAN 25% 100 ML IV SCH (16:35)
[2024-09-13] MEDS: FENTANYL CITR 100 MCG/2 ML IV PRN (21:41)
[2024-09-14 06:29] LABS: Absolute Lymphocytes (CBC) 0.1 K/uL (0.7-4.9); Absolute Monocytes 0.3 K/uL (0.1-1.3); Absolute Neutrophil 4.6 K/uL (1.8-8.0); Basophils % 0.2 % (0-1.3); Hematocrit 18.9 % (39.6-49.0); Hemoglobin 6.2 g/dL (13.6-17.9); Lymphocytes % 1.5 % (15.3-44.8); MCH 30.4 pg (27.0-35.0); MCHC 32.5 g/dL (32.0-36.0); MCV 93.7 fL (80-100); MPV 11.8 fL (7.6-11.3); Monocytes % 6.8 % (3.3-12.3); Neutrophils % 91.5 % (41.7-73.7); Nucleated RBC Absolute Count 0.1 (0-0); Nucleated Red Blood Cells % 1.9 % (0-0); Platelets 67 thou/uL (152-406); RBC Red Blood Cell Count 2.02 M/uL (4.33-5.43)
[2024-09-14 07:08] LABS: Albumin/Globulin Ratio 1.2 (1.1-1.8); Anion Gap 7.8 mEq/L (5.0-15.0); Bilirubin Total 1.5 mg/dL (0.2-1.0); Globulin 2.6 g/dL (2.3-3.5); Magnesium 2.9 mg/dL (1.6-2.4); Potassium 3.8 mEq/L (3.5-5.1); Protein, Total 5.6 g/dL (6.4-8.2)
--- NOTE | 2024-09-14 07:15 | RAD REPORT ---
EXAM: Chest Single View HISTORY: pneumonia COMPARISON: 09/09/2024. FINDINGS: LUNGS/PLEURA: Widespread bilateral airspace disease with increasing reticulonodular opacities bilater ally. Background of advanced emphysema. Small pleural effusions difficult to exclude. MEDIASTINUM: The mediastinal silhouette is within normal limits. CARDIAC: Cardiomegaly. UPPER ABDOMEN: No significant abnormality. BONES: No acute fracture. LINES/TUBES/OTHER: ICD. IMPRESSION: Worsened aeration of the lungs compared with 09/09/2024. Findings remain consistent with multifocal pneumonia though the worsening could be due in part to tyson e developing pulmonary edema.
[2024-09-14] MEDS: CEFEPIME 1 GM in NA CHLORIDE 0.9% 100 ML IV SCH (08:01)
--- NOTE | 2024-09-14 10:23 | P.PN ---
Nephrology note (S) Pt remains in the ICU, remains NIPPV/BIPAP dependent but on HFNC currently, UOP improved, BP acceptable, not requiring pressors or ionotropic support. H/H remains low despite transfusions and getting 1 unit PRBC today (O) vitals reviewed in the EMR General: Other (Chronically ill appearing, cachectic ) HEENT: Normocephalic, Other (BIPAP mask) Neck: Other (JVD difficult to obtain) Respiratory: Other (b/l BS, reduced at bases) Cardiovascular: Other (Mild tachy, cardiac murmur), Gallops Gastrointestinal: Soft and benign, Non-distended, No guarding Musculoskeletal: No swelling, Other (muscle mass loss) Integumentary: No rashes Neurological: Other (Awakens with stimuli, briefly nods, no tremors or myoclonus noted) Conclusions/Impression: A/P) 1. Stage II ECE 2nd to likely some ischemic ATN developing in the setting of renal hypoperfusion with severe cardiomyopathy, low CO state, relative hypotension, elevated filling pressures with associated CRS, severe hypercarbia which has its own renal plasma flow effects and other. UOP borderline oliguric in prior days but a bit better in the last 36-48h so will escalate diuretics and monitor closely Cont to monitor closely 2. Complicated hemodynamics/fluid status, with suspected renal hypoperfusion earlier in the week, did try a small challenge of intravascular vol with isotonic NS IVF, 250 cc at 50 cc/hr and also received 2 unit PRBC in past days but with H/H remaining quite low, 3rd unit ordered this AM. With bed weight back up, BNP 40K plus and CXR worse, will escalate Lasix to 40 mg IV q8h 3. Metab alkalosis, compensatory for resp acidosis 2nd to hypercarbia and CHF. pH on last ABG was ok. Bicarb levels stable. Cont NIPPV, cont diamox for now. 4. Severe cardiomyopathy unspecified. Acute on chronic systolic + diastolic CHF, pulm HTN 2nd to left sided heart disease. 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 Acute on chronic anemia, multifactorial. Thrombocytopenia. Defer w/u to primary team. Getting additional 1 unit PRBC today. Ordered PPI for GI ppx as pt on steroids and anticoagulant therapy. Defer continuation of anticoagulation therapy to IM team. Recommend goals of care discussion, code status clarification and will cont to monitor closely along with the other providers. Marito Menjivar MD, EMILIO
[2024-09-14] MEDS: FUROSEMIDE 40 MG/4 ML VIAL IV SCH ×2 (11:00→14:06)
[2024-09-14] MEDS: SPIRONOLACTONE 25 MG TABLET PO SCH (12:58)
[2024-09-14] MEDS: NA CHLORIDE 0.9% 250 ML ONE (12:59)
[2024-09-14 16:06] LABS: Hematocrit 22.1 % (39.6-49.0); Hemoglobin 7.1 g/dL (13.6-17.9)
[2024-09-15 05:08] LABS: Nucleated RBC Absolute Count 0.1 (0-0); Nucleated Red Blood Cells % 1.2 % (0-0)
[2024-09-15 05:21] LABS: Absolute Lymphocytes (CBC) 0.1 K/uL (0.7-4.9); Absolute Monocytes 0.3 K/uL (0.1-1.3); Basophils % 0.2 % (0-1.3); Hematocrit 21.2 % (39.6-49.0); Hemoglobin 6.9 g/dL (13.6-17.9); Lymphocytes % 1.9 % (15.3-44.8); MCH 28.4 pg (27.0-35.0); MCHC 32.7 g/dL (32.0-36.0); MPV 11.3 fL (7.6-11.3); Monocytes % 5.8 % (3.3-12.3); Neutrophils % 92.1 % (41.7-73.7); Platelets 73 thou/uL (152-406); RBC Red Blood Cell Count 2.43 M/uL (4.33-5.43); Red Cell Distribution Width 20.3 % (12.1-15.2)
[2024-09-15 05:55] LABS: Anion Gap 7.9 mEq/L (5.0-15.0); Magnesium 2.3 mg/dL (1.6-2.4); Phosphorus 3.2 mg/dL (2.5-4.9); Potassium 2.9 mEq/L (3.5-5.1)
[2024-09-15 06:16] LABS: Anisocytosis 1+; Band Neutrophils 9 % (0-1); Blood Morphology Comment NOTED (NOT SEEN); Differential Total Cells Count 100; Lymphocytes 2 % (15-42); Microcytosis SLIGHT; Monocytes 2 % (0-10); Platelet Estimate ADEQ; Segmented Neutrophils 87 % (40-80)
[2024-09-15 06:17] LABS: Ovalocytes 2+
[2024-09-15] MEDS: KCL 20 MEQ/100 mL IVPB 20 MEQ/100 ML BAG IV SCH (07:27)
[2024-09-15 07:40] LABS: Hematocrit 21.4 % (39.6-49.0)
[2024-09-15] MEDS: POTASSIUM 25 MEQ EFFERV TAB PO ONE (08:20)
[2024-09-15] MEDS: POTASSIUM CL SA 10 MEQ TAB PO ONE ×2 (08:20→17:34)
[2024-09-15] MEDS: NA CHLORIDE 0.9% 250 ML ONE (10:15)
[2024-09-15 19:27] LABS: Hematocrit 25.1 % (39.6-49.0); Hemoglobin 8.2 g/dL (13.6-17.9)
[2024-09-15] MEDS: WATER FOR INJ,STERILE 10 ML ONE (20:29)
[2024-09-15] MEDS: Mupirocin NASAL 2 APPL/1 GM TUBE NAS SCH (20:50)
--- NOTE | 2024-09-15 22:40 | RAD REPORT ---
EXAM: Chest Single View HISTORY: picc line placement COMPARISON: Yesterday FINDINGS: The right subclavian approach PICC coils in the region of the right distal subclavian/brachiocephalic vein region.There may be an occlusion. Pacemaker/ICD. Similar severe bilateral airspace disease. Background of advanced emphysema. Cardiomegaly. IMPRESSION: 1. The right subclavian approach PICC terminates in the region of the right brachiocephalic vein. The re may be an occlusion. 2. Bilateral airspace disease similar to 09/14/2024.
[2024-09-16 06:16] LABS: Absolute Lymphocytes (CBC) 0.1 K/uL (0.7-4.9); Absolute Monocytes 0.3 K/uL (0.1-1.3); Absolute Neutrophil 7.1 K/uL (1.8-8.0); Basophils % 0.6 % (0-1.3); Hematocrit 24.6 % (39.6-49.0); Hemoglobin 8.1 g/dL (13.6-17.9); Lymphocytes % 1.3 % (15.3-44.8); MCH 28.7 pg (27.0-35.0); MCHC 32.7 g/dL (32.0-36.0); MCV 87.8 fL (80-100); MPV 10.4 fL (7.6-11.3); Monocytes % 3.7 % (3.3-12.3); Neutrophils % 94.4 % (41.7-73.7); Nucleated RBC Absolute Count 0.1 (0-0); Nucleated Red Blood Cells % 0.9 % (0-0); Platelets 82 thou/uL (152-406); Red Cell Distribution Width 18.5 % (12.1-15.2)
[2024-09-16 06:42] LABS: Anion Gap 7.4 mEq/L (5.0-15.0); Magnesium 2.1 mg/dL (1.6-2.4); Phosphorus 3.1 mg/dL (2.5-4.9); Potassium 3.4 mEq/L (3.5-5.1)
[2024-09-16] MEDS: POTASSIUM CL SA 10 MEQ TAB PO ONE (08:04)
[2024-09-16] MEDS: FUROSEMIDE 40 MG/4 ML VIAL IV SCH (13:16)
[2024-09-16] MEDS: CALCIUM GLUCONATE 1 GM IVPB 1 GM/50 ML BAG IV ONE (13:16)
[2024-09-16] MEDS: BENZONATATE 100 MG CAP PO PRN (21:51)
--- NOTE | 2024-09-16 22:15 | P.PN ---
Date of Service: 09/16/24 Subjective Patient continues to show some gradual improvement. Continues to diurese. However still requiring a large amount of oxygen. Currently on high-flow at an FiO2 of 90%. Patient with multiorgan failure including heart failure, respiratory failure, renal disease and liver disease. Patient's daughter to be here later today and may discuss long-term prognosis. We talked about palliative care. Will need to revisit this as well. Physical Examination - Vital Signs Reviewed - Physical Exam General: Alert, In no apparent distress, Cachectic, Disheveled, lethargic Respiratory: Diminished, Expiratory wheezes Cardiovascular: Regular rate/rhythm, Normal S1 S2, Systolic murmur Gastrointestinal: Hypoactive, Soft and benign, scaphoid abdomen; caput medusa Musculoskeletal: No clubbing, No swelling, No tenderness Integumentary: Bruising; Neurological: generalized weakness; confused; Assessment & Plan - Problems (Diagnosis) (1) Acute and chronic respiratory failure with hypercapnia Current Visit: Yes Status: Acute (2) Atrial fibrillation Current Visit: Yes Status: Acute (3) Chronic combined systolic (congestive) and diastolic (congestive) heart failure Current Visit: Yes Status: Acute (4) CVA (cerebral vascular accident)/ vascular dementia Onset Date: 03/14/18 Current Visit: No Status: Acute (5) Depression Current Visit: No Status: Acute Depression Type: major depressive disorder (6) Pulmonary hypertension Current Visit: No Status: Acute (7) Bicytopenia Current Visit: Yes Status: Resolved (8) CEE (acute kidney injury) Current Visit: Yes Status: Acute (9) Uremia Current Visit: Yes Status: Acute - Plan Continue with plan of care as mentioned below: 1. Patient with acute on chronic hypercapnic respiratory failure secondary to COPD exacerbation and congestive heart failure; continue with nebs, steroids, and antibiotics. Patient looks to have a pneumonic process on his x-rays as well. O2 per protocol. BiPAP support as needed. Patient was started on acetazolamide and continuing with diuretics. Significant urine output for the last few days. Continue monitoring clinical symptoms. Long-term prognosis poor. 2. Heart failure with reduced ejection fraction; echocardiogram with an ejection fraction of 10 to 15%. Patient with a defibrillator placed. Patient also with diastolic dysfunction with elevated filling pressures. Patient with severe mitral regurgitation; cardiology input appreciated. Patient does not meet criteria for any surgical intervention. Patient prognosis is very poor and patient will probably benefit from palliative care. Patient on acetazolamide as well as Lasix. continue monitoring volume status. Renal function has i mproved. So will continue with aggressively diuresing. 3. Patient with cardiorenal syndrome; after diuresing patient's renal function has stabilized. Patient with significant improvement of renal function as well. Continue monitoring volume status closely. Appreciate Nephrology input. Renal function stabilized. Continue monitoring BUN / creatinine. Monitor electrolytes. 4. Severe pulmonary hypertension with elevated right atrial pressures; may benefit from sildenafil. However, prognosis remains very grim. 5. Severe malnutrition; patient not really eating much. However he has started to drink ensures and his nutritional status has improved. We have talked about a feeding tube in that is something he does not want to do at this time. 6. Bicytopenia; patient with anemia and thrombocytopenia. This is most likely related to nutritional status. Will monitor counts closely. Patient has been given 3 units of packed red blood cells. Monitoring H&H. Patient also with thrombocytopenia. Anticoagulation on hold. Continue monitoring H&H closely. Discharge Plan: Other Plan to discharge in: Greater than 2 days - Advance Directives Does patient have a Living Will: No Does patient have a Durable POA for Healthcare: No - Code Status/Comfort Care Code Status: Full Code Critical Care: Yes Time Spent Managing PTS Care (In Minutes): 60
--- NOTE | 2024-09-16 22:32 | P.PN ---
Date of Service: 09/15/24 Subjective Patient remains hypoxic. Remains on BiPAP at times. However, patient on high-flow oxygen. spoke with daughter to give her an update and she states she will be by in the morning. She understands that his prognosis is poor. He has had episodes of bradyarrhythmia. Renal function has improved. Patient is hypokalemic and will supplement potassium. Patient was anemic. Given 1 more unit of packed red blood cells. Will discuss with family when they arrive tomorrow regarding long-term prognosis and we may need to consider palliative care. Physical Examination - Vital Signs Reviewed - Physical Exam General: Alert, In no apparent distress, Cachectic, Disheveled, lethargic Respiratory: Diminished, Expiratory wheezes Cardiovascular: Regular rate/rhythm, Normal S1 S2, Systolic murmur Gastrointestinal: Hypoactive, Soft and benign, scaphoid abdomen; caput medusa Musculoskeletal: No clubbing, No swelling, No tenderness Integumentary: Bruising; Neurological: generalized weakness; confused; Assessment & Plan - Problems (Diagnosis) (1) Acute and chronic respiratory failure with hypercapnia Current Visit: Yes Status: Acute (2) Atrial fibrillation Current Visit: Yes Status: Acute (3) Chronic combined systolic (congestive) and diastolic (congestive) heart failure Current Visit: Yes Status: Acute (4) CVA (cerebral vascular accident)/ vascular dementia Onset Date: 03/14/18 Current Visit: No Status: Acute (5) Depression Current Visit: No Status: Acute Depression Type: major depressive disorder (6) Pulmonary hypertension Current Visit: No Status: Acute (7) Bicytopenia Current Visit: Yes Status: Resolved (8) CEE (acute kidney injury) Current Visit: Yes Status: Acute (9) Uremia Current Visit: Yes Status: Acute - Plan Continue with plan of care as mentioned below: 1. Patient with acute on chronic hypercapnic respiratory failure secondary to COPD exacerbation and congestive heart failure; continue with nebs, steroids, and continue antibiotic therapy. O2 per protocol. BiPAP support as needed. Patient on acetazolamide and continuing with diuretics. Significant urine output for the last few days. Will continue to aggressively diurese after transfusion. Continue monitoring clinical symptoms. Long-term prognosis poor. 2. Heart failure with reduced ejection fraction; echocardiogram with an ejection fraction of 10 to 15%. Patient with a defibrillator placed. Patient also with diastolic dysfunction with elevated filling pressures. Patient with severe mitral regurgitation; cardiology input appreciated. Patient does not meet criteria for any surgical intervention. Patient prognosis is very poor and patient will probably benefit from palliative care. Patient on acetazolamide as well as Lasix. continue monitoring volume status. Renal function has improved. So will continue with aggressively diuresing. Patient with bradyarrhythmia. Will continue monitoring electrolytes and heart rate. 3. Patient with cardiorenal syndrome; after diuresing patient's renal function has stabilized with some improvement. Continue monitoring volume status closely. Appreciate Nephrology input. Renal function stabilized. Continue monitoring BUN / creatinine. Monitor electrolytes. 4. Severe pulmonary hypertension with elevated right atrial pressures; will discuss with pulmonary the benefit from sildenafil. However, prognosis remains very poor. 5. Severe malnutrition; patient not really eating much. However he has started to drink ensures and his nutritional status has improved. 6. Bicytopenia; patient with anemia and thrombocytopenia. This is most likely related to nutritional status. Will monitor counts closely. Patient will be given a 3rd units of packed red blood cells. Monitoring H&H. Patient also with thrombocytopenia. Anticoagulation on hold. Continue monitoring H&H closely. Discharge Plan: Other Plan to discharge in: Greater than 2 days - Advance Directives Does patient have a Living Will: No Does patient have a Durable POA for Healthcare: No - Code Status/Comfort Care Code Status: Full Code Critical Care: Yes Time Spent Managing PTS Care (In Minutes): 30
--- NOTE | 2024-09-16 23:08 | P.PN ---
Date of Service: 09/14/24 Subjective Patient once again anemic. Hemoglobin was 6.2. Creatinine was elevated a little bit more today. Continuing to monitor volume status closely. Spoke with daughter who has made patient DNR. Patient clinically declining. Patient's long-term prognosis poor. Still requiring a large amount of oxygen.. Physical Examination - Vital Signs Reviewed - Physical Exam General: Alert, In no apparent distress, Cachectic, Disheveled, Confused Respiratory: Diminished, Expiratory wheezes Cardiovascular: Regular rate/rhythm, Normal S1 S2, Systolic murmur Gastrointestinal: Hypoactive, Soft and benign, Non-distended, No tenderness, Scaphoid abdomen; varicosities on the abdominal wall Neurological: generalized weakness; decreased strength. Assessment & Plan - Problems (Diagnosis) (1) Acute and chronic respiratory failure with hypercapnia Current Visit: Yes Status: Acute (2) Atrial fibrillation Current Visit: Yes Status: Acute (3) Chronic combined systolic (congestive) and diastolic (congestive) heart failure Current Visit: Yes Status: Acute (4) CVA (cerebral vascular accident)/Vascular dementia Onset Date: 03/14/18 Current Visit: No Status: Acute (5) Depression Current Visit: No Status: Acute Depression Type: major depressive disorder (6) Pulmonary hypertension Current Visit: No Status: Acute (7) Bicytopenia Current Visit: Yes Status: Resolved (8) CEE (acute kidney injury) Current Visit: Yes Status: Acute (9) Uremia Current Visit: Yes Status: Acute - Plan Continue with plan of care as mentioned below: 1. Patient with acute on chronic hypercapnic respiratory failure secondary to COPD exacerbation and heart failure with reduced ejection fraction and valvular disease. Patient continued to diurese. Continue Acetazolamide. Continue on Lasix. continue with nebs, steroids, and will continue with antibiotics. Imaging studies with pneumonic process. 2. Heart failure with reduced ejection fraction; echocardiogram with an ejec tion fraction of 10 to 15%. Patient with a defibrillator placed. Patient also with diastolic dysfunction with elevated filling pressures. Patient with severe mitral regurgitation; cardiology consulted. Patient on acetazolamide. Continue with diuretics. Will monitor volume status and may need to add Lasix dose. However, prognosis is poor. 3. Patient with cardiorenal syndrome; patient with worsening renal function. Patient with significant uremia. Patient with echocardiogram with significantly elevated right atrial pressures with severe pulmonary hypertension. Most likely elevated renal venous pressures with decreased renal perfusion. Monitor volume status closely. Patient's prognosis remains very poor. Patient ejection fraction is 10 to 15% and with this unlikely to assist in improvement of renal perfusion patient is most likely headed towards renal failure. Will continue with diuresing. Appreciate Nephrology's assistance in patient's care. 4. Severe pulmonary hypertension with elevated right atrial pressures; may benefit from sildenafil. Plan to discuss with Pulmonary. 5. Severe malnutrition; Nutrition starting to improve. Continue monitoring nutritional status. Continue ensures with meals. 6. Bicytopenia; Hemoglobin is 6.2. Platelet count is stable. Transfusing 1 unit of packed red blood cells. Continue with diuresing. Discharge Plan: Other Plan to discharge in: Greater than 2 days - Advance Directives Does patient have a Living Will: No Does patient have a Durable POA for Healthcare: No - Code Status/Comfort Care Code Status: Full Code Critical Care: Yes Time Spent Managing PTS Care (In Minutes): 35
--- NOTE | 2024-09-16 23:16 | P.PN ---
Date of Service: 09/13/24 Subjective Patient once again anemic. Hemoglobin was 6.2. Creatinine was elevated a little bit more today. We will need to continue with diuresing patient. Monitor volume status closely. Monitor hemodynamics closely. Prognosis long- term is poor. Physical Examination - Vital Signs Reviewed - Physical Exam General: Alert, In no apparent distress, Cachectic, Disheveled, Confused Respiratory: Diminished, Expiratory wheezes Cardiovascular: Regular rate/rhythm, Normal S1 S2, Systolic murmur Gastrointestinal: Hypoactive, Soft and benign, Non-distended, No tenderness, Scaphoid abdomen; varicosities on the abdominal wall Neurological: generalized weakness; decreased strength. Assessment & Plan - Problems (Diagnosis) (1) Acute and chronic respiratory failure with hypercapnia Current Visit: Yes Status: Acute (2) Atrial fibrillation Current Visit: Yes Status: Acute (3) Chronic combined systolic (congestive) and diastolic (congestive) heart failure Current Visit: Yes Status: Acute (4) CVA (cerebral vascular accident)/Vascular dementia Onset Date: 03/14/18 Current Visit: No Status: Acute (5) Depression Current Visit: No Status: Acute Depression Type: major depressive disorder (6) Pulmonary hypertension Current Visit: No Status: Acute (7) Bicytopenia Current Visit: Yes Status: Resolved (8) CEE (acute kidney injury) Current Visit: Yes Status: Acute (9) Uremia Current Visit: Yes Status: Acute - Plan Continue with plan of care as mentioned below: 1. Patient with acute on chronic hypercapnic respiratory failure secondary to COPD exacerbation and heart failure with reduced ejection fraction and valvular disease. Continue diuretics, and continue with nebs, steroids, and will continue with antibiotics. Imaging studies with pneumonic process. Will monitor with serial x-rays. 2. Heart failure with reduced ejection fraction; echocardiogram with an ejection fraction of 10 to 15%. Patient with a defibrillator placed. Patient also with diastolic dysfunction with elevated filling pressures. Patient with severe mitral regurgitation; cardiology consultation appreciated. Patient on diuretics. Will monitor volume status and may need to add additional Lasix doses. Appreciate cardiology and nephrology consultation. However, prognosis is poor. 3. Patient with cardiorenal syndrome; patient with worsening renal function. Patient with significant uremia. Patient with echocardiogram with significantly elevated right atrial pressures with severe pulmonary hypertension. Most likely elevated renal venous pressures with decreased renal perfusion. Monitor volume status closely. Patient's prognosis remains very poor. Patient ejection fraction is 10 to 15% and with this unlikely to assist in improvement of renal perfusion- patient is most likely headed towards renal failure. Will continue with diuresing. Appreciate Nephrology's assistance in patient's care. 4. Severe pulmonary hypertension with elevated right atrial pressures; will benefit from sildenafil. Plan to discuss with Pulmonary. 5. Severe malnutrition; Nutrition starting to improve. Continue monitoring nutritional status. Continue ensures with meals. 6. Bicytopenia; Hemoglobin & platelet count is stable. Monitor H&H and platelet count. Discharge Plan: Other Plan to discharge in: Greater than 2 days - Advance Directives Does patient have a Living Will: No Does patient have a Durable POA for Healthcare: No - Code Status/Comfort Care Code Status: Full Code Critical Care: Yes Time Spent Managing PTS Care (In Minutes): 35
[2024-09-16] MEDS: ALBUTEROL 2.5 MG/3 ML NEB SOL ONE (23:20)
--- NOTE | 2024-09-16 23:51 | P.PN ---
Date of Service: 09/12/24 Subjective Patient was given 1 unit of packed red blood cells yesterday for hemoglobin of 6.4. Hemoglobin up to 6.7. Will given additional unit. Continue monitoring renal function and continue with diuresing patient aggressively. Physical Examination - Vital Signs Reviewed - Physical Exam General: Alert, In no apparent distress, Cachectic, Disheveled, Confused Respiratory: Diminished, Expiratory wheezes Cardiovascular: Regular rate/rhythm, Normal S1 S2, Systolic murmur Gastrointestinal: Hypoactive, Soft and benign, Non-distended, No tenderness, Scaphoid abdomen; varicosities on the abdominal wall Neurological: generalized weakness; decreased strength. Assessment & Plan - Problems (Diagnosis) (1) Acute and chronic respiratory failure with hypercapnia Current Visit: Yes Status: Acute (2) Atrial fibrillation Current Visit: Yes Status: Acute (3) Chronic combined systolic (congestive) and diastolic (congestive) heart failure Current Visit: Yes Status: Acute (4) CVA (cerebral vascular accident)/Vascular dementia Onset Date: 03/14/18 Current Visit: No Status: Acute (5) Depression Current Visit: No Status: Acute Depression Type: major depressive disorder (6) Pulmonary hypertension Current Visit: No Status: Acute (7) Bicytopenia Current Visit: Yes Status: Resolved (8) CEE (acute kidney injury) Current Visit: Yes Status: Acute (9) Uremia Current Visit: Yes Status: Acute - Plan Continue with plan of care as mentioned below: 1. Patient with acute on chronic hypercapnic respiratory failure secondary to COPD exacerbation and heart failure with reduced ejection fraction and valvular disease. Continue diuretics, and continue with nebs, steroids, and will continue with antibiotics. Continue with antibiotic therapy. Will monitor with serial x-rays. 2. Heart failure with reduced ejection fraction; echocardiogram with an ejection fraction of 10 to 15%. Patient with a defibrillator placed. Patient also with diastolic dysfunction with elevated filling pressures. Patient with severe mitral regurgitation; cardiology consultation appreciated. Patient on diuretics. Will monitor volume status and may need to add additional Lasix doses. Appreciate cardiology and nephrology consultation. However, prognosis is poor. 3. Patient with cardiorenal syndrome; patient with worsening renal function. Patient with significant uremia. Patient with echocardiogram with significantly elevated right atrial pressures with severe pulmonary hypertension. Most likely elevated renal venous pressures with decreased renal perfusion. Monitor volume status closely. Patient's prognosis remains very poor. Patient ejection fraction is 10 to 15% and with this unlikely to assist in improvement of renal perfusion- patient is most likely headed towards renal failure. Will continue with diuresing. Appreciate Nephrology's assistance in patient's care. 4. Severe pulmonary hypertension with elevated right atrial pressures; will benefit from sildenafil. Plan to discuss with Pulmonary. 5. Severe malnutrition; Nutrition starting to improve. Continue monitoring nutritional status. Continue ensures with meals. 6. Bicytopenia; Hemoglobin & platelet count is stable. Monitor H&H and platelet count. Discharge Plan: Other Plan to discharge in: Greater than 2 days
[2024-09-17] MEDS: ALBUTEROL 2.5 MG/3 ML NEB SOL ONE ×2 (03:38→19:23)
[2024-09-17 05:36] LABS: Absolute Lymphocytes (CBC) 0.1 K/uL (0.7-4.9); Absolute Monocytes 0.4 K/uL (0.1-1.3); Absolute Neutrophil 8.9 K/uL (1.8-8.0); Basophils % 0.1 % (0-1.3); Hematocrit 24.9 % (39.6-49.0); MCH 28.7 pg (27.0-35.0); MCHC 32.3 g/dL (32.0-36.0); MCV 88.9 fL (80-100); MPV 10.6 fL (7.6-11.3); Monocytes % 4.4 % (3.3-12.3); Neutrophils % 94.5 % (41.7-73.7); Nucleated RBC Absolute Count 0.1 (0-0); Nucleated Red Blood Cells % 0.6 % (0-0); Platelets 99 thou/uL (152-406); Red Cell Distribution Width 18.8 % (12.1-15.2)
[2024-09-17 06:04] LABS: Albumin/Globulin Ratio 1.2 (1.1-1.8); Anion Gap 7.8 mEq/L (5.0-15.0); Bilirubin Total 1.5 mg/dL (0.2-1.0); Globulin 2.6 g/dL (2.3-3.5); Potassium 3.8 mEq/L (3.5-5.1); Protein, Total 5.6 g/dL (6.4-8.2)
--- NOTE | 2024-09-17 07:45 | RAD REPORT ---
EXAMINATION: ONE VIEW CHEST XR CLINICAL INDICATION: pneumonia TECHNIQUE: Frontal chest projection is submitted. Examination is limited by patient positioning and t echnique. COMPARISON: 09/15/2024 FINDINGS: Extensive bilateral pulmonary opacities are present, unchanged since the prior study. The heart is up per limit normal in size. Previously noted right PICC line no longer seen. There is a short right-sided venous catheter with its tip likely in the axillary vein. Single lead pacer/defibrillato r device. IMPRESSION: Stable chest since comparison study.
[2024-09-17] MEDS: SPIRONOLACTONE 25 MG TABLET PO SCH (08:53)
--- NOTE | 2024-09-17 11:59 | P.PN ---
Subjective Date of Service: 09/17/24 Chief Complaint: Acute on chronic respiratory failure Subjective: No new changes He is complaining of shortness of breath at rest, denied any productive cough or fever or chest pain. When I recommend a palliative care to the patient because there has been no clinical significant improvement in his condition despite of intensive medical treatment in the past 2 weeks, he said he is not considering palliative care at the moment but will think about it. Review of Systems Other: Consitutional; fever(-), chills (-), rigor(-), night sweat(-), unintentional weight loss(-), malaise (-) HEENT; diplopia (-), rhinorrhea (-), epistaxis (-), otorrhea (-), otalgia (-) Respiratory; shortness of breath (+), wheezing (-), cough (-), sputum (-), pleuritic chest pain (-) Cardiovascular; chest pain (-), peripheral edema (-), paroxysmal nocturnal dyspnea (-), orthopnea (-) Gastrointestinal; nausea (-), vomiting (-), abdominal pain (-), diarrhea (-), constipation (-), melena (-), hematochezia (-) Genitourinary; urinary frequency (-), dysuria (-), urgency (-), flank pain (-), gross hematuria (-), incontinence (-) Skin; rash (-), pruritus (-) 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 General: Cachectic, chronic ill-looking, in no apparent distress,. HEENT: Normocephalic, atraumatic, nonicteric sclera, nonanemic conjunctive. Neck: Supple, without JVD or goiter or thyroid mass. Respiratory: Decreased breath sound bilaterally, no crackles no wheezing or rhonchi. Cardiovascular: Distant heart sound. Gastrointestinal: Normal bowel sounds, nondistended, nontender, No ascites, , No masses, no hepatosplenomegaly. Extremities l: No clubbing, No peripheral edema, full range of motion, no deformity, no muscle atrophy. Integumentary: No rashes, petechia, suspected lesions. Lymphatics: No axilla or cervical lymphadenopathy. Neurology; alert awake oriented x3, no focal neurologic deficit, normal affection . mood and behavior. - Studies Medications List Reviewed: Yes Assessment And Plan - Plan This is a 64 years old gentleman with complex medical problem including COPD on home oxygen, hypertension, coronary artery disease, paroxysmal A-fib, congestive heart failure status post AICD, hypertension old stroke who presented to emergency room for evaluation of shortness of breath and admitted for #1 acute on chronic hypoxic and hypercapnic respiratory failure related to #2 Repeat ABG. 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 #3 de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, dilated cardiomyopathy, [place] [facility] heart failure class IV euvolemia on IV furosemide bolus 40 mg plus spironolactone, urine output 1 L over the past 24-hour, Unable to get other guideline directed therapy for borderline hypotension old transthoracic cardiogram reviewed, dilated CMP, ejection fraction 10 to 15%, severe MR and TR, pulmonary hypertension #4 atrial fibrillation with controlled ventricle response Heart rate controlled in 90-100 at rest on amiodarone and metoprolol #5 glucocorticoid induced hyperglycemia Resolved after tapering down steroid,.last hemoglobin A1c was normal at 5.5 in 2022, #6 presumed anemia of chronic disease Hemoglobin 9 after 3 unit of packed RBC transfusion in the past week,, no clinical bleeding. #7 pancytopenia Differential diagnosis include medication induced, or cardiac liver cirrhosis, sepsis related to extensive pneumonia platelet factor 4 antibody ordered, pending, cell count reviewed, no transfusion indicated today #8 elevated troponin and lactate secondary to hypoxia #9 pulmonary cachexia #10 CEE rule out cardiorenal syndrome Serum creatinine mildly elevated 1.59, DVT prophylaxis; rivaroxaban Disposition; he has a poor prognosis and serious multiple comorbidity, continue to need ICU care, hospice/palliative care discussed with the patient
[2024-09-17] MEDS: IPRATROPIUM BROM 0.5MG/2.5ML ONE (19:23)
--- NOTE | 2024-09-17 20:29 | P.PN ---
Date of Service: 09/17/24 Vital Signs Temp Pulse Resp BP Pulse Ox 97.5 F 76 16 122/56 L 93 09/17/24 16:00 09/17/24 18:00 09/17/24 18:00 09/17/24 18:00 09/17/24 18:00 Medications Acetaminophen (Acetaminophen 325 Mg Tablet) 650 mg PO Q4HP PRN PRN Reason: Pain scale 2-4 (Mild) Last Admin: 09/08/24 12:34 Dose: 650 mg Acetazolamide Sodium (Acetazolamide 500 Mg Iv) 125 mg IV BID [facility] Last Admin: 09/17/24 08:55 Dose: 125 mg Albuterol Sulfate (Albuterol 2.5 Mg/3 Ml Neb Ingrid) 2.5 mg NEB Q6HP PRN PRN Reason: SHORTNESS OF BREATH Albuterol Sulfate (Albuterol 2.5 Mg/3 Ml Neb Ingrid) 2.5 mg NEB [id number] [facility] Last Admin: 09/17/24 14:45 Dose: 2.5 mg Amiodarone HCl (Amiodarone Hcl 200 Mg Tab) 100 mg PO BID [facility] Last Admin: 09/17/24 08:53 Dose: 100 mg Aspirin (Aspirin Ec 81 Mg Tab) 81 mg PO DAILY [facility] Last Admin: 09/17/24 08:52 Dose: Not Given Benzonatate (Benzonatate 100 Mg Cap) 100 mg PO TID PRN PRN Reason: COUGH Last Admin: 09/17/24 12:41 Dose: 100 mg Bisacodyl (Bisacodyl 10 Mg Rectal Supp) 10 mg [place] DAILY PRN PRN Reason: CONSTIPATION Fentanyl Citrate (Fentanyl Citr 100 Mcg/2 Ml) 25 mcg IV Q4H PRN PRN Reason: Pain scale 8-10 (Severe) Last Admin: 09/16/24 12:32 Dose: 25 mcg Furosemide (Furosemide 40 Mg/4 Ml Vial) 40 mg IV BIDL [facility] Last Admin: 09/17/24 17:58 Dose: 40 mg Cefepime HCl 1 gm/ Sodium (Chloride) 100 mls @ 200 mls/hr IV Q24H [facility]; Protocol Last Admin: 09/17/24 08:54 Dose: 100 mls Ipratropium [place] (Ipratropium Brom 0.5mg/2.5ml) 0.5 mg NEB [id number] [facility] Last Admin: 09/17/24 14:45 Dose: 0.5 mg Methylprednisolone Sodium Succinate (Methylprednisolone 40 Mg Inj) 40 mg IV Q12HR [facility] Last Admin: 09/17/24 08:55 Dose: 40 mg Midodrine (Midodrine Hcl 5 Mg Tablet) 5 mg PO TID [facility] Last Admin: 09/17/24 14:27 Dose: 5 mg Mupirocin (Mupirocin Nasal 2 Appl/1 Gm Tube) 1 appl CORNELIUS BID [facility] Stop: 09/20/24 09:01 Last Admin: 09/17/24 08:53 Dose: 1 appl Nicotine (Nicotine 21 Mg/Pat) 21 mg TD DAILY [facility] Last Admin: 09/17/24 08:53 Dose: 21 mg Nutritional Formula (Ensure Enlive 237 Ml Can) 237 ml PO TID [facility] Last Admin: 09/17/24 14:00 Dose: 237 ml Ondansetron HCl (Ondansetron 4 Mg/2 Ml Vial) 4 mg IV Q6HP PRN PRN Reason: NAUSEA / VOMITING Last Admin: 09/09/24 13:35 Dose: 4 mg Pantoprazole Sodium (Pantoprazole 40 Mg Inj) 40 mg IVP DAILY [facility]; Protocol Last Admin: 09/17/24 08:55 Dose: 40 mg Polyethylene Glycol (Polyethyl Gly 3350 17 Gm/Dose) 17 gm PO DAILY [facility] Last Admin: 09/17/24 08:53 Dose: 17 gm Rivaroxaban (Rivaroxaban 10 Mg Tablet) 10 mg PO DAILY 5 PM [facility] Last Admin: 09/17/24 17:00 Dose: Not Given Sodium Chloride (Sodium Chloride 0.9% 10ml Inj) 10 ml IV UD PRN PRN Reason: Diluant Spironolactone (Spironolactone 25 Mg Tablet) 25 mg PO DAILY [facility] Last Admin: 09/17/24 08:53 Dose: 25 mg Thiamine HCl (Thiamine Hcl 100 Mg Tablet) 200 mg PO DAILY [facility] Last Admin: 09/17/24 08:53 Dose: 200 mg Microbiology Results 09/04/24 18:49 Blood - Blood Aerobic Blood Culture - Final No growth in 5 days. 09/04/24 18:49 Blood - Blood Anaerobic Blood Culture - Final No growth in 5 days. 09/04/24 19:11 Blood - Blood Aerobic Blood Culture - Final No growth in 5 days. 09/04/24 19:11 Blood - Blood Anaerobic Blood Culture - Final No growth in 5 days. 09/04/24 19:00 Nasopharnyx Influenza Type A Antigen Screen - Final 09/04/24 19:00 Nasopharnyx Influenza Type B Antigen Screen - Final Assessment/ Plan: Nephrology Improving dyspnea No chest pain Weakness and fatigue No acute events overnight Vitals, medications, blood work and imaging reviewed in the chart NAD. MMM. NCAT. Normal Respiratory Effort. S1S2. ND Abd. No C/C/E. No rash. AAO. Normal speech. Diffuse muscle atrophy. Stage II CEE likely CRS Uremia -No NSAIDs -Continue diuresis Hyponatremia -Continue furosemide Hypokalemia -Replete prn -Continue spironolactone Metabolic Alkalosis -Continue Diamox Hypotension -Continue Midodrine Systolic Diastolic CHF, A/C CMP Pulmonary HTN -Continue diuresis A/C Respiratory Failure with hypercapnia -Bipap prn -Continue Oxygen supplementation Anemia in chronic illness Thrombocytopenia -Monitor CBC Case reviewed with Dr. Marks 35min patient care
[2024-09-17] MEDS: WATER FOR INJ,STERILE 10 ML ONE ×2 (20:58→21:54)
[2024-09-18 06:28] LABS: Absolute Lymphocytes (CBC) 0.1 K/uL (0.7-4.9); Absolute Monocytes 0.3 K/uL (0.1-1.3); Absolute Neutrophil 14.4 K/uL (1.8-8.0); Basophils % 0.2 % (0-1.3); Hematocrit 23.5 % (39.6-49.0); Hemoglobin 7.5 g/dL (13.6-17.9); Lymphocytes % 0.6 % (15.3-44.8); MCH 28.3 pg (27.0-35.0); MCHC 31.8 g/dL (32.0-36.0); MPV 10.2 fL (7.6-11.3); Monocytes % 2.1 % (3.3-12.3); Neutrophils % 97.1 % (41.7-73.7); Nucleated RBC Absolute Count 0.1 (0-0); Nucleated Red Blood Cells % 0.4 % (0-0); Platelets 115 thou/uL (152-406); RBC Red Blood Cell Count 2.64 M/uL (4.33-5.43); Red Cell Distribution Width 18.7 % (12.1-15.2)
[2024-09-18 06:31] LABS: Albumin 2.9 g/dL (3.4-5.0); Albumin/Globulin Ratio 1.1 (1.1-1.8); Anion Gap 8.8 mEq/L (5.0-15.0); Bilirubin Total 1.7 mg/dL (0.2-1.0); Globulin 2.6 g/dL (2.3-3.5); Magnesium 1.8 mg/dL (1.6-2.4); Phosphorus 3.3 mg/dL (2.5-4.9); Potassium 3.8 mEq/L (3.5-5.1); Protein, Total 5.5 g/dL (6.4-8.2)
[2024-09-18] MEDS: POTASSIUM 25 MEQ EFFERV TAB PO ONE (09:53)
--- NOTE | 2024-09-18 09:59 | P.PN ---
Subjective Date of Service: 09/18/24 Chief Complaint: Acute on chronic respiratory failure Subjective: No new changes No event overnight, he has no new complain, complaining of shortness of breath on minimal exertion. No chest pain or productive cough or fever or chill. Review of Systems Other: Consitutional; fever(-), chills (-), rigor(-), night sweat(-), unintentional weight loss(-), malaise (-) HEENT; diplopia (-), rhinorrhea (-), epistaxis (-), otorrhea (-), otalgia (-) Respiratory; shortness of breath (+), wheezing (-), cough (-), sputum (-), pleuritic chest pain (-) Cardiovascular; chest pain (-), peripheral edema (-), paroxysmal nocturnal dyspnea (-), orthopnea (-) Gastrointestinal; nausea (-), vomiting (-), abdominal pain (-), diarrhea (-), constipation (-), melena (-), hematochezia (-) Genitourinary; urinary frequency (-), dysuria (-), urgency (-), flank pain (-), gross hematuria (-), incontinence (-) Skin; rash (-), 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 General: Cachectic, chronic ill-looking, in no apparent distress,. HEENT: Normocephalic, atraumatic, nonicteric sclera, nonanemic conjunctive. Neck: Supple, without JVD or goiter or thyroid mass. Respiratory: Coarse breath sound bilaterally with crackles but no wheezing or rhonchi. Cardiovascular: Distant heart sound. Gastrointestinal: Normal bowel sounds, nondistended, nontender, No ascites, , No masses, no hepatosplenomegaly. Extremities l: No clubbing, No peripheral edema, full range of motion, no deformity, no muscle atrophy. Integumentary: No rashes, petechia, suspected lesions. Lymphatics: No axilla or cervical lymphadenopathy. Neurology; alert awake oriented x3, no focal neurologic deficit, normal affection . mood and behavior. - Studies Medications List Reviewed: Yes Assessment And Plan - Plan This is a 64 years old gentleman with complex medical problem including COPD on home oxygen, hypertension, coronary artery disease, paroxysmal A-fib, congestive heart failure status post AICD, hypertension old stroke who presented to emergency room for evaluation of shortness of breath and admitted for #1 acute on chronic hypoxic and hypercapnic respiratory failure related to #2 Repeat ABG. 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 #3 de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, dilated cardiomyopathy, [place] heart association heart failure class IV euvolemia on IV furosemide bolus 40 mg plus spironolactone, urine output 1 L over the past 24-hour, Unable to get other guideline directed therapy for borderline hypotension old transthoracic cardiogram reviewed, dilated CMP, ejection fraction 10 to 15%, severe MR and TR, pulmonary hypertension #4 atrial fibrillation with controlled ventricle response Heart rate controlled in 90-100 at rest on amiodarone #5 glucocorticoid induced hyperglycemia Resolved after tapering down steroid,.last hemoglobin A1c was normal at 5.5 in 2022, #6 presumed anemia of chronic disease Hemoglobin 7.5 after 3 unit of packed RBC transfusion in the past week,, no clinical bleeding. #7 pancytopenia Differential diagnosis include medication induced, or cardiac liver cirrhosis, less likely sepsis related to extensive pneumonia platelet factor 4 antibody ordered, pending, Today leukocytosis with WBC 14.9 on steroid, platelet 115, no transfusion indicated today #8 elevated troponin and lactate secondary to hypoxia #9 pulmonary cachexia #10 CEE rule out cardiorenal syndrome Serum creatinine trending down 1.35 today DVT prophylaxis; rivaroxaban Disposition; he has a poor prognosis and serious multiple comorbidity, continue to need ICU care, hospice/palliative care discussed with the patient
[2024-09-18 10:20] LABS: Differential Total Cells Count 100; Lymphocytes 1 % (15-42); Nucleated Red Blood Cells 2 /100WBC; Platelet Estimate ADEQ
[2024-09-18 10:21] LABS: Anisocytosis 1+; Basophilic Stippling 1+; Blood Morphology Comment NOTED (NOT SEEN); Hypochromasia 1+; Microcytosis 1+; Toxic Granulation NOTED
[2024-09-18 10:22] LABS: Monocytes 1 % (0-10); Segmented Neutrophils 98 % (40-80); White Blood Cell Scan OK (OK)
[2024-09-18] MEDS ORDERED: CALCIUM CARBONATE CHEW 500MG TAB PO PRN (11:16)
[2024-09-18 15:30] LABS: PT Prothrombin Time 14.6 SECONDS (9.4-12.5); PTT, Activated Partial Thromb 23.4 SECONDS (24.3-36.9); Protime INR 1.31
--- NOTE | 2024-09-18 15:48 | RAD REPORT ---
Procedure: Chest Single View HISTORY: Cough COMPARISON: September 17, 2024 FINDINGS: Extensive bilateral pulmonary opacities without significant change. Heart remains enlarged. Pacemaker the place. Small pleural effusions. IMPRESSION: No significant change in extensive bilateral pulmonary opacities presumably pneumonia.
[2024-09-18] MEDS: TRANEXAMIC ACID 1,000 MG in NA CHLORIDE 0.9% 50 ML IV ONE (16:12)
[2024-09-18] MEDS: BENZONATATE 100 MG CAP PO SCH (16:14)
--- NOTE | 2024-09-18 19:14 | P.PN ---
Date of Service: 09/18/24 Vital Signs Temp Pulse Resp BP Pulse Ox 97.6 F 71 20 124/58 L 93 09/18/24 16:00 09/18/24 18:00 09/18/24 18:00 09/18/24 18:00 09/18/24 18:00 Medications Acetaminophen (Acetaminophen 325 Mg Tablet) 650 mg PO Q4HP PRN PRN Reason: Pain scale 2-4 (Mild) Last Admin: 09/08/24 12:34 Dose: 650 mg Acetazolamide Sodium (Acetazolamide 500 Mg Iv) 125 mg IV BID [facility] Last Admin: 09/18/24 08:43 Dose: 125 mg Albuterol Sulfate (Albuterol 2.5 Mg/3 Ml Neb Ingrid) 2.5 mg NEB Q6HP PRN PRN Reason: SHORTNESS OF BREATH Albuterol Sulfate (Albuterol 2.5 Mg/3 Ml Neb Ingrid) 2.5 mg NEB [id number] [facility] Last Admin: 09/18/24 14:05 Dose: 2.5 mg Amiodarone HCl (Amiodarone Hcl 200 Mg Tab) 100 mg PO BID [facility] Last Admin: 09/18/24 08:44 Dose: 100 mg Benzonatate (Benzonatate 100 Mg Cap) 100 mg PO TID [facility] Last Admin: 09/18/24 16:14 Dose: 100 mg Bisacodyl (Bisacodyl 10 Mg Rectal Supp) 10 mg [place] DAILY PRN PRN Reason: CONSTIPATION Calcium Carbonate/Glycine (Calcium Carbonate Chew 500mg Tab) 500 mg PO TIDWMHS PRN PRN Reason: INDIGESTION Fentanyl Citrate (Fentanyl Citr 100 Mcg/2 Ml) 25 mcg IV Q4H PRN PRN Reason: Pain scale 8-10 (Severe) Last Admin: 09/17/24 21:10 Dose: 25 mcg Furosemide (Furosemide 40 Mg/4 Ml Vial) 40 mg IV BIDL [facility] Last Admin: 09/18/24 16:14 Dose: 40 mg Cefepime HCl 1 gm/ Sodium (Chloride) 100 mls @ 200 mls/hr IV Q24H [facility]; Protocol Last Admin: 09/18/24 08:42 Dose: 100 mls Ipratropium [place] (Ipratropium Brom 0.5mg/2.5ml) 0.5 mg NEB [id number] [facility] Last Admin: 09/18/24 14:05 Dose: 0.5 mg Methylprednisolone Sodium Succinate (Methylprednisolone 40 Mg Inj) 40 mg IV Q12HR [facility] Last Admin: 09/18/24 08:42 Dose: 40 mg Midodrine (Midodrine Hcl 5 Mg Tablet) 5 mg PO TID [facility] Last Admin: 09/18/24 14:41 Dose: 5 mg Mupirocin (Mupirocin Nasal 2 Appl/1 Gm Tube) 1 appl CORNELIUS BID [facility] Stop: 09/20/24 09:01 Last Admin: 09/18/24 08:45 Dose: 1 appl Nicotine (Nicotine 21 Mg/Pat) 21 mg TD DAILY [facility] Last Admin: 09/18/24 08:43 Dose: 21 mg Nutritional Formula (Ensure Enlive 237 Ml Can) 237 ml PO TID [facility] Last Admin: 09/18/24 14:00 Dose: 237 ml Ondansetron HCl (Ondansetron 4 Mg/2 Ml Vial) 4 mg IV Q6HP PRN PRN Reason: NAUSEA / VOMITING Last Admin: 09/09/24 13:35 Dose: 4 mg Pantoprazole Sodium (Pantoprazole 40 Mg Inj) 40 mg IVP DAILY [facility]; Protocol Last Admin: 09/18/24 08:43 Dose: 40 mg Polyethylene Glycol (Polyethyl Gly 3350 17 Gm/Dose) 17 gm PO DAILY [facility] Last Admin: 09/18/24 08:43 Dose: 17 gm Sodium Chloride (Sodium Chloride 0.9% 10ml Inj) 10 ml IV UD PRN PRN Reason: Diluant Spironolactone (Spironolactone 25 Mg Tablet) 25 mg PO DAILY [facility] Last Admin: 09/18/24 08:44 Dose: 25 mg Thiamine HCl (Thiamine Hcl 100 Mg Tablet) 200 mg PO DAILY [facility] Last Admin: 09/18/24 08:44 Dose: 200 mg Microbiology Results 09/04/24 18:49 Blood - Blood Aerobic Blood Culture - Final No growth in 5 days. 09/04/24 18:49 Blood - Blood Anaerobic Blood Culture - Final No growth in 5 days. 09/04/24 19:11 Blood - Blood Aerobic Blood Culture - Final No growth in 5 days. 09/04/24 19:11 Blood - Blood Anaerobic Blood Culture - Final No growth in 5 days. 09/04/24 19:00 Nasopharnyx Influenza Type A Antigen Screen - Final 09/04/24 19:00 Nasopharnyx Influenza Type B Antigen Screen - Final Assessment/ Plan: Nephrology Improving dyspnea No chest pain Weakness and fatigue No acute events overnight Vitals, medications, blood work and imaging reviewed in the chart NAD. MMM. NCAT. Normal Respiratory Effort. S1S2. ND Abd. No C/C/E. No rash. AAO. Normal speech. Diffuse muscle atrophy. Stage II CEE likely CRS Uremia -No NSAIDs -Continue diuresis Hyponatremia -Continue furosemide Hypokalemia -Replete prn -Continue spironolactone Metabolic Alkalosis -Continue Diamox Hypotension -Continue Midodrine Systolic Diastolic CHF, A/C CMP Pulmonary HTN -Continue diuresis A/C Respiratory Failure with hypercapnia -Bipap prn -Continue Oxygen supplementation Anemia in chronic illness Thrombocytopenia -Monitor CBC -PRBC prn Case reviewed with Dr. Marks
[2024-09-18] MEDS: WATER FOR INJ,STERILE 10 ML ONE (20:57)
[2024-09-19 05:08] LABS: Hematocrit 22.4 % (39.6-49.0); Hemoglobin 7.1 g/dL (13.6-17.9); MCH 28.5 pg (27.0-35.0); MCHC 31.8 g/dL (32.0-36.0); MCV 89.7 fL (80-100); MPV 10.1 fL (7.6-11.3); Platelets 111 thou/uL (152-406); Red Cell Distribution Width 18.5 % (12.1-15.2)
[2024-09-19 05:10] LABS: PT Prothrombin Time 14.9 SECONDS (9.4-12.5); Protime INR 1.34
[2024-09-19 05:44] LABS: Anion Gap 7.4 mEq/L (5.0-15.0); Magnesium 1.7 mg/dL (1.6-2.4); Phosphorus 3.1 mg/dL (2.5-4.9); Potassium 3.4 mEq/L (3.5-5.1)
[2024-09-19] MEDS: POTASSIUM 25 MEQ EFFERV TAB PO ONE (08:15)
[2024-09-19] MEDS: MAGNESIUM SULFATE 1 gm IVPB 1 GM/100 ML BAG IV ONE (08:16)
--- NOTE | 2024-09-19 10:01 | P.PN ---
Subjective Date of Service: 09/19/24 Chief Complaint: Acute on chronic respiratory failure No change in patient's condition in fact is worsening hypoxic diffuse infiltrates on chest x-ray Review of Systems General: Weakness Respiratory: Shortness of Breath Physical Examination - Vital Signs Temperature: 98.0 F Blood Pressure: 114/65 Pulse: 105 Respirations: 20 Pulse Ox (%): 94 - Physical Exam General: Alert, Moderate distress Respiratory: Crackles/rales Cardiovascular: No edema, Regular rate/rhythm, Normal S1 S2 Gastrointestinal: Normal bowel sounds, Soft and benign Other Physical/Emotional Findings: - Physical Exam. General: Cachectic, chronic ill-looking, in no apparent distress,. HEENT: Normocephalic, atraumatic, nonicteric sclera, nonanemic conjunctive. Neck: Supple, without JVD or goiter or thyroid mass. Respiratory: Coarse breath sound bilaterally with crackles but no wheezing or rhonchi. Cardiovascular: Distant heart sound. Gastrointestinal: Normal bowel sounds, nondistended, nontender, No ascites, , No masses, no hepatosplenomegaly. Extremities l: No clubbing, No peripheral edema, full range of motion, no deformity, no muscle atrophy. Integumentary: No rashes, petechia, suspected lesions. Lymphatics: No axilla or cervical lymphadenopathy. Neurology; alert awake oriented x3, no focal neurologic deficit, normal affection . mood and behavior. - Studies Medications List Reviewed: Yes Assessment And Plan - Current Problems (Diagnosis) (1) Acute and chronic respiratory failure with hypercapnia Current Visit: Yes Status: Acute Plan: Patient's condition has deteriorated he is not developed extensive infiltrates bilateral reticulonodular on the his chest x-ray was clear he has been on steroids and cefepime white count is mildly elevated he is requiring more oxygen I will stop amiodarone new with steroids I have added levofloxacin new with cefepime he is already on diuretics patient's hemoglobin is also declining he has had a recent history of hemoptysis with stopping Eliquis prognosis very poor consider DNR and hospice care
--- NOTE | 2024-09-19 10:35 | P.PN ---
Subjective Date of Service: 09/19/24 Chief Complaint: Acute on chronic respiratory failure Subjective: New changes Patient had a moderate amount of fresh hemoptysis yesterday afternoon when patient was sitting up, apixaban and aspirin discontinued, 1 g of Tranexemic acid was given, no further hemoptysis noted since then, patient is continuously complaining of shortness of breath at rest, 1 unit packed RBC transfusion offered but he wants to postpone until tomorrow., Review of Systems Other: Consitutional; fever(-), chills (-), rigor(-), night sweat(-), unintentional weight loss(-), malaise (-) HEENT; diplopia (-), rhinorrhea (-), epistaxis (-), otorrhea (-), otalgia (-) Respiratory; shortness of breath (+), wheezing (-), cough (+), sputum (-), pleuritic chest pain (-) Cardiovascular; chest pain (-), peripheral edema (-), paroxysmal nocturnal dyspnea (-), orthopnea (-) Gastrointestinal; nausea (-), vomiting (-), abdominal pain (-), diarrhea (-), constipation (-), melena (-), hematochezia (-) Genitourinary; urinary frequency (-), dysuria (-), urgency (-), flank pain (-), gross hematuria (-), incontinence (-) Skin; rash (-), pruritus (-) 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 General: Cachectic, chronic ill-looking, in no apparent distress,. HEENT: Normocephalic, atraumatic, nonicteric sclera, nonanemic conjunctive. Neck: Supple, without JVD or goiter or thyroid mass. Respiratory: Coarse breath sound bilaterally with crackles but no wheezing or rhonchi. Cardiovascular: Distant heart sound. Gastrointestinal: Normal bowel sounds, nondistended, nontender, No ascites, , No masses, no hepatosplenomegaly. Extremities l: No clubbing, No peripheral edema, full range of motion, no deformity, no muscle atrophy. Integumentary: No rashes, petechia, suspected lesions. Lymphatics: No axilla or cervical lymphadenopathy. Neurology; alert awake oriented x3, no focal neurologic deficit, normal affection . mood and behavior. - Studies Medications List Reviewed: Yes Assessment And Plan - Plan This is a 64 years old gentleman with complex medical problem including COPD on home oxygen, hypertension, coronary artery disease, paroxysmal A-fib, congestive heart failure status post AICD, hypertension old stroke who presented to emergency room for evaluation of shortness of breath and admitted for #1 acute on chronic hypoxic and hypercapnic respiratory failure related to #2 Repeat ABG. Improving, pH is 7.37, pCO2 further down to 80 mmHg from 137 mmHg, No significant improvement in the past 2 weeks, still requiring high flow nasal cannula with 40 L, BiPAP 20/8 with FiO2 60 #2 bilateral pneumonia of unknown etiology with acute exacerbation of COPD Test negative for COVID-19 and influenza A and B, Repeat chest x-ray showed unchanged bilateral extensive infiltration, sputum culture ordered but unable to obtain, antibiotics downgraded to cefepime, methylprednisolone 40 mg twice daily, comanaging with showroom manager, case discussed with Dr. Li this morning #3 de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, dilated cardiomyopathy, [place] heart association heart failure class IV euvolemia on IV furosemide bolus 40 mg plus spironolactone, urine output 1 L over the past 24-hour, Unable to get other guideline directed therapy for borderline hypotension old transthoracic cardiogram reviewed, dilated CMP, ejection fraction 10 to 15%, severe MR and TR, pulmonary hypertension #4 atrial fibrillation with controlled ventricle response Heart rate controlled in 90-100 at rest on amiodarone #5 glucocorticoid induced hyperglycemia Good glycemic control on low-dose insulin sliding scale,.last hemoglobin A1c was normal at 5.5 in 2022, #6 presumed anemia of chronic disease Hemoglobin 7.1 after 3 unit of packed RBC transfusion in the past week,, no clinical bleeding. Repeat H&H tomorrow morning, will likely give 1 unit packed RBC tomorrow #7 pancytopenia Differential diagnosis include medication induced, or cardiac liver cirrhosis, less likely sepsis related to extensive pneumonia platelet factor 4 antibody ordered, pending, leukocytosis with WBC 13 on steroid, platelet 115, no transfusion indicated today #8 elevated troponin and lactate secondary to hypoxia #9 pulmonary cachexia #10 CEE rule out cardiorenal syndrome Resolved, #11 hemoptysis related to #2 Resolved, 1 g of tranexamic acid given, rivaroxaban and aspirin on hold DVT prophylaxis; sequential compression device, Disposition; he has a poor prognosis and serious multiple comorbidity with multiorgans failure, continue to need ICU care, hospice/palliative care discussed with the patient, he revoked hospice multiple times per his showroom manager
[2024-09-19] MEDS: LORAZEPAM 0.5 MG TABLET PO PRN (10:42)
[2024-09-19] MEDS: Levofloxacin500mg IV 500 MG/100 ML BAG IV SCH (10:42)
--- NOTE | 2024-09-19 16:07 | P.PN ---
Nephrology note (S) Pt remains in the ICU, off BIPAP when seen, on Vapotherm, doing ok but remains frail, per family a bit confused on conversation but otherwise more awake, conversive than when I last saw him end of last week. Varma remains in place, diuresing. (O) vitals reviewed in the EMR General: Other (Chronically ill appearing, cachectic ) HEENT: Normocephalic, Other (HFNC) Neck: Other (JVD difficult to obtain) Respiratory: Other (b/l BS, reduced at bases) Cardiovascular: Other (Mild tachy, cardiac murmur), Gallops Gastrointestinal: Soft and benign, Non-distended, No guarding Musculoskeletal: No swelling, Other (muscle mass loss) Integumentary: No rashes Neurological: Other (Awaken, conversive, no tremors or myoclonus noted) Conclusions/Impression: A/P) 1. Stage II CEE last mo 2nd to likely some ischemic ATN developing in the setting of renal hypoperfusion with severe cardiomyopathy, low CO state, relative hypotension, elevated filling pressures with associated CRS, severe hypercarbia which has its own renal plasma flow effects and other. UOP borderline oliguric briefly but now diuresing well. Cr level has downward trended. Cont to monitor closely 2. Complicated hemodynamics/fluid status, with risk for renal hypoperfusion, cont to monitor closely on diuretic therapy 3. Metab alkalosis, compensatory for resp acidosis 2nd to hypercarbia and CHF. Monitor bicarb levels, keep K > 4, cont Spironolactone/Diamox for now 4. Severe cardiomyopathy unspecified. Acute on chronic systolic + diastolic CHF, pulm HTN 2nd to left sided heart disease. MAP at bedside currently acceptable. Cont IV lasix/diuresis as last CXR did not show any sig improvement in infiltrates 5. Acute on chronic anemia, multifactorial. Thrombocytopenia. Counts remain low despite recent transfusions Defer continuation of anticoagulation therapy to IM team. Remains in tenuous status despite some stabilization of condition Marito Menjivar MD, EMILIO
[2024-09-19] MEDS: MAGNESIUM OXIDE 400 MG TAB PO SCH (16:47)
[2024-09-19] MEDS: FUROSEMIDE 20 MG/ 2ML VIAL IV SCH (16:48)
[2024-09-19] MEDS: SPIRONOLACTONE 25 MG TABLET PO SCH (22:01)
[2024-09-20] MEDS: LORazepam 2 MG/ML VIAL IV ONE (01:45)
[2024-09-20 05:23] LABS: Absolute Lymphocytes (CBC) 0.1 K/uL (0.7-4.9); Absolute Monocytes 0.3 K/uL (0.1-1.3); Absolute Neutrophil 21.4 K/uL (1.8-8.0); Basophils % 0.2 % (0-1.3); Hematocrit 25.1 % (39.6-49.0); Hemoglobin 7.9 g/dL (13.6-17.9); Lymphocytes % 0.3 % (15.3-44.8); MCHC 31.3 g/dL (32.0-36.0); MCV 89.6 fL (80-100); MPV 9.8 fL (7.6-11.3); Monocytes % 1.5 % (3.3-12.3); Platelets 126 thou/uL (152-406); Red Cell Distribution Width 18.7 % (12.1-15.2)
[2024-09-20 05:51] LABS: Anion Gap 7.3 mEq/L (5.0-15.0); Phosphorus 3.8 mg/dL (2.5-4.9); Potassium 4.3 mEq/L (3.5-5.1)
[2024-09-20] MEDS: METOPROLOL XL 25 MG TAB PO SCH (06:36)
[2024-09-20 07:03] LABS: Blood Morphology Comment NOTED (NOT SEEN); Differential Total Cells Count 100; Monocytes 1 % (0-10); Platelet Estimate DECR; Segmented Neutrophils 99 % (40-80); Stomatocytes 1+
[2024-09-20] MEDS: levoFLOXacin 250 MG TAB PO SCH (08:19)
[2024-09-20] MEDS: POTASSIUM 25 MEQ EFFERV TAB PO SCH (08:21)
--- NOTE | 2024-09-20 10:31 | P.PN ---
Date of Service: 09/20/24 Vital Signs Temp Pulse Resp BP Pulse Ox 97.5 F 97 H 23 H 132/69 90 L 09/20/24 08:00 09/20/24 10:00 09/20/24 10:00 09/20/24 10:00 09/20/24 10:00 Medications Acetaminophen (Acetaminophen 325 Mg Tablet) 650 mg PO Q4HP PRN PRN Reason: Pain scale 2-4 (Mild) Last Admin: 09/08/24 12:34 Dose: 650 mg Acetazolamide Sodium (Acetazolamide 500 Mg Iv) 125 mg IV BID [facility] Last Admin: 09/20/24 08:20 Dose: 125 mg Albuterol Sulfate (Albuterol 2.5 Mg/3 Ml Neb Ingrid) 2.5 mg NEB Q6HP PRN PRN Reason: SHORTNESS OF BREATH Albuterol Sulfate (Albuterol 2.5 Mg/3 Ml Neb Ingrid) 2.5 mg NEB [id number] [facility] Last Admin: 09/20/24 07:58 Dose: 2.5 mg Benzonatate (Benzonatate 100 Mg Cap) 100 mg PO TID [facility] Last Admin: 09/20/24 08:19 Dose: 100 mg Bisacodyl (Bisacodyl 10 Mg Rectal Supp) 10 mg CO DAILY PRN PRN Reason: CONSTIPATION Calcium Carbonate/Glycine (Calcium Carbonate Chew 500mg Tab) 500 mg PO TIDWMHS PRN PRN Reason: INDIGESTION Fentanyl Citrate (Fentanyl Citr 100 Mcg/2 Ml) 25 mcg IV Q4H PRN PRN Reason: Pain scale 8-10 (Severe) Last Admin: 09/20/24 03:38 Dose: 25 mcg Furosemide (Furosemide 20 Mg/ 2ml Vial) 20 mg IV BIDL [facility] Last Admin: 09/20/24 08:20 Dose: 20 mg Cefepime HCl 1 gm/ Sodium (Chloride) 100 mls @ 200 mls/hr IV Q24H [facility]; Protocol Last Admin: 09/20/24 08:21 Dose: 100 mls Ipratropium [place] (Ipratropium Brom 0.5mg/2.5ml) 0.5 mg NEB [id number] [facility] Last Admin: 09/20/24 07:58 Dose: 0.5 mg Levofloxacin (Levofloxacin 250 Mg Tab) 250 mg PO DAILY [facility]; Protocol Last Admin: 09/20/24 08:19 Dose: 250 mg Lorazepam (Lorazepam 0.5 Mg Tablet) 0.5 mg PO Q8H PRN PRN Reason: ANXIETY Last Admin: 09/20/24 09:00 Dose: 0.5 mg Magnesium Oxide (Magnesium Oxide 400 Mg Tab) 400 mg PO DAILY [facility] Last Admin: 09/20/24 08:19 Dose: 400 mg Methylprednisolone Sodium Succinate (Methylprednisolone 40 Mg Inj) 40 mg IV Q12HR [facility] Last Admin: 09/20/24 08:21 Dose: 40 mg Metoprolol Succinate (Metoprolol Xl 25 Mg Tab) 12.5 mg PO [id number] [facility] Last Admin: 09/20/24 06:36 Dose: 12.5 mg Midodrine (Midodrine Hcl 5 Mg Tablet) 5 mg PO TID [facility] Last Admin: 09/20/24 08:19 Dose: 5 mg Nicotine (Nicotine 21 Mg/Pat) 21 mg TD DAILY [facility] Last Admin: 09/20/24 08:18 Dose: 21 mg Nutritional Formula (Ensure Enlive 237 Ml Can) 237 ml PO TID [facility] Last Admin: 09/20/24 09:09 Dose: 237 ml Ondansetron HCl (Ondansetron 4 Mg/2 Ml Vial) 4 mg IV Q6HP PRN PRN Reason: NAUSEA / VOMITING Last Admin: 09/09/24 13:35 Dose: 4 mg Polyethylene Glycol (Polyethyl Gly 3350 17 Gm/Dose) 17 gm PO DAILY [facility] Last Admin: 09/20/24 08:21 Dose: 17 gm Potassium Bicarbonate (Potassium 25 Meq Efferv Tab) 25 meq PO DAILY [facility] Last Admin: 09/20/24 08:21 Dose: 25 meq Sodium Chloride (Sodium Chloride 0.9% 10ml Inj) 10 ml IV UD PRN PRN Reason: Diluant Spironolactone (Spironolactone 25 Mg Tablet) 25 mg PO BID [facility] Last Admin: 09/20/24 08:19 Dose: 25 mg Thiamine HCl (Thiamine Hcl 100 Mg Tablet) 200 mg PO DAILY [facility] Last Admin: 09/20/24 08:19 Dose: 200 mg Microbiology Results 09/04/24 18:49 Blood - Blood Aerobic Blood Culture - Final No growth in 5 days. 09/04/24 18:49 Blood - Blood Anaerobic Blood Culture - Final No growth in 5 days. 09/04/24 19:11 Blood - Blood Aerobic Blood Culture - Final No growth in 5 days. 09/04/24 19:11 Blood - Blood Anaerobic Blood Culture - Final No growth in 5 days. 09/04/24 19:00 Nasopharnyx Influenza Type A Antigen Screen - Final 09/04/24 19:00 Nasopharnyx Influenza Type B Antigen Screen - Final Assessment/ Plan: Nephrology Improving dyspnea No chest pain Weakness and fatigue No acute events overnight Vitals, medications, blood work and imaging reviewed in the chart NAD. MMM. NCAT. Normal Respiratory Effort. S1S2. ND Abd. No C/C/E. No rash. AAO. Normal speech. Diffuse muscle atrophy. Stage II CEE likely CRS Uremia -No NSAIDs -Continue diuresis Hyponatremia -Change furosemide to oral Bumex Hypokalemia -Replete prn -Continue spironolactone Metabolic Alkalosis -Change to oral Diamox Hypotension -Continue Midodrine Systolic Diastolic CHF, A/C CMP Pulmonary HTN -Continue diuresis but change to oral Bumex; titrate as needed A/C Respiratory Failure with hypercapnia -Bipap prn -Continue Oxygen supplementation Anemia in chronic illness Thrombocytopenia -Monitor CBC -PRBC prn Hospitalist note reviewed
--- NOTE | 2024-09-20 11:37 | P.PN ---
Subjective Date of Service: 09/20/24 Chief Complaint: Acute on chronic respiratory failure Subjective: No new changes No overnight event noted, no more hemoptysis, no other overt clinical bleeding. Patient continued to complaining of shortness of breath at rest, seems to be unchanged, hemoglobin went up to 7.9 without transfusion up from 7.1 yesterday. Review of Systems Other: Consitutional; fever(-), chills (-), rigor(-), night sweat(-), unintentional weight loss(-), malaise (-) HEENT; diplopia (-), rhinorrhea (-), epistaxis (-), otorrhea (-), otalgia (-) Respiratory; shortness of breath (+), wheezing (-), cough (+), sputum (+), pleuritic chest pain (-) Cardiovascular; chest pain (-), peripheral edema (-), paroxysmal nocturnal dyspnea (-), orthopnea (-) Gastrointestinal; nausea (-), vomiting (-), abdominal pain (-), diarrhea (-), constipation (-), melena (-), hematochezia (-) Genitourinary; urinary frequency (-), dysuria (-), urgency (-), flank pain (-), gross hematuria (-), incontinence (-) Skin; rash (-), pruritus (-) 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 General: Cachectic, chronic ill-looking, in no apparent distress,. HEENT: Normocephalic, atraumatic, nonicteric sclera, nonanemic conjunctive. Neck: Supple, without JVD or goiter or thyroid mass. Respiratory: Coarse breath sound bilaterally with crackles but no wheezing or rhonchi. Cardiovascular: Distant heart sound. Gastrointestinal: Normal bowel sounds, nondistended, nontender, No ascites, , No masses, no hepatosplenomegaly. Extremities l: No clubbing, No peripheral edema, full range of motion, no deformity, muscle atrophy of all 4 extremities. Integumentary: No rashes, petechia, suspected lesions. Lymphatics: No axilla or cervical lymphadenopathy. Neurology; alert awake oriented x3, no focal neurologic deficit, normal affection . mood and behavior. - Studies Medications List Reviewed: Yes Assessment And Plan - Plan This is a 64 years old gentleman with complex medical problem including COPD on home oxygen, hypertension, coronary artery disease, paroxysmal A-fib, congestive heart failure status post AICD, hypertension old stroke who presented to emergency room for evaluation of shortness of breath and admitted for #1 acute on chronic hypoxic and hypercapnic respiratory failure related to #2 Repeat ABG. Improving, pH is 7.37, pCO2 further down to 80 mmHg from 137 mmHg, No significant improvement in the past 2 weeks, still requiring high flow nasal cannula with 40 L, BiPAP 20/8 with FiO2 60 #2 bilateral pneumonia of unknown etiology with acute exacerbation of COPD Test negative for COVID-19 and influenza A and B, Repeat chest x-ray showed unchanged bilateral extensive infiltration, sputum culture ordered but unable to obtain, antibiotics upgraded to levofloxacin plus cefepime by submarine operator, I agreed with, methylprednisolone 40 mg twice daily, comanaging with submarine operator, #3 de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, dilated cardiomyopathy, [place] heart association heart failure class IV euvolemia on IV furosemide bolus 40 mg plus spironolactone, urine output 1 L over the past 24-hour, Unable to get other guideline directed therapy for borderline hypotension old transthoracic cardiogram reviewed, dilated CMP, ejection fraction 10 to 15%, severe MR and TR, pulmonary hypertension #4 atrial fibrillation with controlled ventricle response Heart rate at target, blood pressure is improved, amiodarone discontinued, I will start him on metoprolol 12.5 mg twice daily #5 glucocorticoid induced hyperglycemia Good glycemic control on low-dose insulin sliding scale,.last hemoglobin A1c was normal at 5.5 in 2022, #6 presumed anemia of chronic disease Hemoglobin today 7.9 from 7.1 without transfusion, 3 unit of packed RBC transfused in the past week,, no clinical bleeding. #7 pancytopenia Differential diagnosis include medication induced, or cardiac liver cirrhosis, less likely sepsis related to extensive pneumonia platelet factor 4 antibody ordered, pending, leukocytosis with WBC 21 on steroid, platelet 126, no transfusion indicated today #8 elevated troponin and lactate secondary to hypoxia #9 pulmonary cachexia #10 CEE rule out cardiorenal syndrome Serum BUN/creatinine stable at 76/1.4, elevated BUN due to steroid #11 hemoptysis related to #2 Resolved, 1 g of tranexamic acid given, rivaroxaban and aspirin on hold DVT prophylaxis; sequential compression device, Disposition; he has a poor prognosis and serious multiple comorbidity with multiorgans failure, continue to need ICU care, hospice/palliative care discussed with the patient, he revoked hospice multiple times per his submarine operator, I will consult manager social services for possible placement in LTAC
[2024-09-20] MEDS: acetaZOLAMIDE 250 MG TAB PO SCH (13:09)
[2024-09-20] MEDS ORDERED: FUROSEMIDE 40 MG TABLET PO SCH (15:00)
[2024-09-20] MEDS: BUMETANIDE 1 MG TABLET PO SCH (16:03)
[2024-09-20] MEDS: DOCUSATE NA 100 MG CAP PO SCH (20:54)
[2024-09-21 06:21] LABS: Absolute Lymphocytes (CBC) 0.1 K/uL (0.7-4.9); Absolute Monocytes 0.4 K/uL (0.1-1.3); Basophils % 0.3 % (0-1.3); Hemoglobin 7.5 g/dL (13.6-17.9); Lymphocytes % 0.5 % (15.3-44.8); MCH 29.2 pg (27.0-35.0); MCHC 32.7 g/dL (32.0-36.0); MCV 89.2 fL (80-100); MPV 10.1 fL (7.6-11.3); Monocytes % 3.5 % (3.3-12.3); Neutrophils % 95.7 % (41.7-73.7); Nucleated Red Blood Cells % 0.1 % (0-0); Platelets 127 thou/uL (152-406); RBC Red Blood Cell Count 2.58 M/uL (4.33-5.43); Red Cell Distribution Width 18.6 % (12.1-15.2)
[2024-09-21 06:51] LABS: Anion Gap 6.7 mEq/L (5.0-15.0); Magnesium 2.3 mg/dL (1.6-2.4); Phosphorus 4.6 mg/dL (2.5-4.9); Potassium 3.7 mEq/L (3.5-5.1)
[2024-09-21] MEDS ORDERED: acetaZOLAMIDE 250 MG TAB PO SCH (08:00)
[2024-09-21] MEDS: DRISDOL (VITAMIN D=ERGOCALCIFEROL) 50000 UNIT CAP PO SCH (08:04)
--- NOTE | 2024-09-21 10:41 | P.PN ---
Subjective Date of Service: 09/21/24 Chief Complaint: Acute on chronic respiratory failure Subjective: New changes The patient retained urine after removal of Varma catheter yesterday ended up reinserting Varma catheter. No change otherwise, he complaining of continuous shortness of breath at rest and minimal exertion, no hemoptysis dry cough, malaise. Review of Systems Other: Consitutional; fever(-), chills (-), rigor(-), night sweat(-), unintentional weight loss(-), malaise (+) HEENT; diplopia (-), rhinorrhea (-), epistaxis (-), otorrhea (-), otalgia (-) Respiratory; shortness of breath (+), wheezing (-), cough (+), sputum (-), pleuritic chest pain (-) Cardiovascular; chest pain (-), peripheral edema (-), paroxysmal nocturnal dyspnea (-), orthopnea (-) Gastrointestinal; nausea (-), vomiting (-), abdominal pain (-), diarrhea (-), constipation (-), melena (-), hematochezia (-) Genitourinary; urinary frequency (-), dysuria (-), urgency (-), flank pain (-), gross hematuria (-), incontinence (-) Skin; rash (-), pruritus (-) RESEARCH EDITOR; headache (-), paresthesia (-), numbness (-), paralysis (-) Physical Examination - Vital Signs Temperature: 98.6 F Blood Pressure: 112/65 Pulse: 72 Respirations: 18 Pulse Ox (%): 95 - Physical Exam Other Physical/Emotional Findings: - Physical Exam. General: Cachectic, chronic ill-looking, in no apparent distress,. HEENT: Normocephalic, atraumatic, nonicteric sclera, nonanemic conjunctive. Neck: Supple, without JVD or goiter or thyroid mass. Respiratory: Coarse breath sound bilaterally with crackles but no wheezing or rhonchi. Cardiovascular: Distant heart sound. Gastrointestinal: Normal bowel sounds, nondistended, nontender, No ascites, , No masses, no hepatosplenomegaly. Extremities l: No clubbing, No peripheral edema, full range of motion, no deformity, severe muscle atrophy of all 4 extremities. Integumentary: No rashes, petechia, suspected lesions. Lymphatics: No axilla or cervical lymphadenopathy. Neurology; alert awake oriented x3, no focal neurologic deficit, normal affection . mood and behavior. - Studies Medications List Reviewed: Yes Assessment And Plan - Plan This is a 64 years old gentleman with complex medical problem including COPD on home oxygen, hypertension, coronary artery disease, paroxysmal A-fib, congestive heart failure status post AICD, hypertension old stroke who presented to emergency room for evaluation of shortness of breath and admitted for #1 acute on chronic hypoxic and hypercapnic respiratory failure related to #2 No significant improvement in the past 2 weeks, still requiring high flow nasal cannula with 40 L, BiPAP 20/8 with FiO2 60 Latest ABG. pH is 7.37, pCO2 further down to 80 mmHg from 137 mmHg, #2 bilateral pneumonia of unknown etiology with acute exacerbation of COPD leading to end-stage lung disease Test negative for COVID-19 and influenza A and B, Repeat chest x-ray showed unchanged bilateral extensive infiltration, sputum culture ordered but unable to obtain, continues empiric antibiotics with levofloxacin plus cefepime, amiodarone discontinued for possible pulmonary toxicity, methylprednisolone 40 mg twice daily, comanaging with chip unloader, #3 de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, dilated cardiomyopathy, [place] heart association heart failure class IV euvolemia on spironolactone, urine output 1 L over the past 24-hour, Unable to get other guideline directed therapy for borderline hypotension old transthoracic cardiogram reviewed, dilated CMP, ejection fraction 10 to 15%, severe MR and TR, pulmonary hypertension #4 atrial fibrillation with controlled ventricle response Heart rate at target on 12.5 mg metoprolol twice daily, blood pressure is improved, amiodarone discontinued, #5 glucocorticoid induced hyperglycemia Good glycemic control on low-dose insulin sliding scale,.last hemoglobin A1c was normal at 5.5 in 2022, #6 presumed anemia of chronic disease Hemoglobin today 7.5 from 7.1 without transfusion, 3 unit of packed RBC transfused in the past week, no clinical bleeding except 1 episode of hemoptysis. #7 pancytopenia Differential diagnosis include medication induced, or cardiac liver cirrhosis, less likely sepsis related to extensive pneumonia platelet factor 4 antibody ordered, pending, leukocytosis with WBC 10 on steroid, platelet 126, no transfusion indicated #8 elevated troponin and lactate secondary to hypoxia #9 pulmonary cachexia #10 CEE rule out cardiorenal syndrome Serum BUN/creatinine stable at 76/1.4, elevated BUN due to steroid #11 hemoptysis related to #2 Resolved, 1 g of tranexamic acid given, rivaroxaban and aspirin on hold DVT prophylaxis; sequential compression device, Disposition; he has a grave prognosis and serious multiple comorbidities with multiorgans failure, continue to need ICU care, hospice/palliative care discussed with the patient, he revoked hospice multiple times per his pulmonolog ist, protective services social worker consulted for possible placement in LTAC, his CODE STATUS is in DNR
--- NOTE | 2024-09-21 11:35 | P.PN ---
Nephrology note (S) Pt remains in the ICU, off BIPAP when seen, on Vapotherm, doing ok but remains frail, more conversive. RN informs that hodge had to be put back in for retention of urine, will maintain for now. (O) vitals reviewed in the EMR General: Other (Chronically ill appearing, cachectic ) HEENT: Normocephalic, Other (HFNC) Neck: Other (JVD difficult to obtain) Respiratory: Other (b/l BS, reduced at bases) Cardiovascular: Other (Mild tachy, cardiac murmur), Gallops Gastrointestinal: Soft and benign, Non-distended, No guarding hodge remains in place Musculoskeletal: No swelling, Other (muscle mass loss) Integumentary: No rashes Neurological: Other (Awaken, conversive, no tremors or myoclonus noted) Conclusions/Impression: A/P) 1. Stage II CEE last mo 2nd to likely some ischemic ATN developing in the setting of renal hypoperfusion with severe cardiomyopathy, low CO state, relative hypotension, elevated filling pressures with associated CRS, severe hypercarbia which has its own renal plasma flow effects and other. UOP borderline oliguric briefly but now diuresing well. Cr level has downward trended but pt with diminished muscle mass, nonetheless CrCl notably improved, can adjust meds (Abx) accordingly Cont to monitor closely 2. Retention of urine, unspecified -likely multifactorial, hodge put back in, maintain for now 3. Metab alkalosis, compensatory for resp acidosis 2nd to hypercarbia and CHF. Monitor bicarb levels, keep K > 4, cont Spironolactone/Diamox for now 4. Severe cardiomyopathy unspecified. Acute on chronic systolic + diastolic CHF, pulm HTN 2nd to left sided heart disease. MAP at bedside currently acceptable. Cont diuretics, last CXR did not show any sig improvement in infiltrates. Switched from IV lasix to PO Bumex 5. Acute on chronic anemia, multifactorial. Thrombocytopenia. Counts remain low despite recent transfusions Defer continuation of anticoagulation therapy to IM team. Remains in tenuous status despite some stabilization of condition, plan for LTAC noted Marito Menjivar MD, ZAKIN
--- NOTE | 2024-09-21 14:19 | P.PN ---
Subjective Date of Service: 09/21/24 Chief Complaint: Acute on chronic respiratory failure Patient is improving is currently on high flow nasal cannula oxygen patient stated that he is feeling better eating and drinking well has been off BiPAP Review of Systems General: Weakness Respiratory: Shortness of Breath Physical Examination - Vital Signs Temperature: 98.6 F Blood Pressure: 124/56 Pulse: 72 Respirations: 21 Pulse Ox (%): 94 - Physical Exam General: Alert, Oriented x3, Mild distress Respiratory: Clear to auscultation bilaterally Cardiovascular: No edema, Regular rate/rhythm, Normal S1 S2 Gastrointestinal: Normal bowel sounds, Soft and benign Other Physical/Emotional Findings: - Physical Exam. General: Cachectic, chronic ill-looking, in no apparent distress,. HEENT: Normocephalic, atraumatic, nonicteric sclera, nonanemic conjunctive. Neck: Supple, without JVD or goiter or thyroid mass. Respiratory: Coarse breath sound bilaterally with crackles but no wheezing or rhonchi. Cardiovascular: Distant heart sound. Gastrointestinal: Normal bowel sounds, nondistended, nontender, No ascites, , No masses, no hepatosplenomegaly. Extremities l: No clubbing, No peripheral edema, full range of motion, no deformity, severe muscle atrophy of all 4 extremities. Integumentary: No rashes, petechia, suspected lesions. Lymphatics: No axilla or cervical lymphadenopathy. Neurology; alert awake oriented x3, no focal neurologic deficit, normal affection . mood and behavior. - Studies Medications List Reviewed: Yes Assessment And Plan - Current Problems (Diagnosis) (1) Acute and chronic respiratory failure with hypercapnia Current Visit: Yes Status: Acute Plan: Patient is 64 years of age terminal COPD CHF admitted with bilateral interstitial changes labs reviewed and mildly anemic decline in his hemoglobin no further hemoptysis medication list reviewed no change repeat another x-ray titrate sat to 88 to 90%
--- NOTE | 2024-09-21 15:09 | RAD REPORT ---
Procedure: Chest Single View HISTORY: Cough COMPARISON: September 18, 2024 FINDINGS: Extensive bilateral pulmonary opacities without significant change Heart remains enlarged. Pacemaker the place. Small pleural effusions. IMPRESSION: No significant change in extensive bilateral opacities presumably pneumonia
[2024-09-21] MEDS: ARFORMOTEROL TARTRATE 15 MCG/2 ML VIAL.NEB NEB SCH (19:36)
[2024-09-22] MEDS ORDERED: PROMETHAZINE INJ 25 MG/ML AMP ONE (04:04)
[2024-09-22] MEDS ORDERED: NA CHLORIDE 0.9% 1,000 ML ONE (04:05)
[2024-09-22] MEDS: ALBUTEROL 2.5 MG/3 ML NEB SOL NEB PRN (04:50)
[2024-09-22 05:03] LABS: Anion Gap 6.8 mEq/L (5.0-15.0); Phosphorus 2.9 mg/dL (2.5-4.9); Potassium 3.8 mEq/L (3.5-5.1)
[2024-09-22] MEDS: POTASSIUM 25 MEQ EFFERV TAB PO ONE (05:26)
[2024-09-22] MEDS: APIXABAN 2.5 MG TABLET PO SCH (08:06)
--- NOTE | 2024-09-22 09:14 | P.PN ---
Subjective Date of Service: 09/22/24 Chief Complaint: Acute on chronic respiratory failure Subjective: No new changes No overnight event, no change in patient condition except he is requiring a little bit more oxygen today, dyspnea at rest, no more hemoptysis, no other clinical overt bleeding. Review of Systems Other: Consitutional; fever(-), chills (-), rigor(-), night sweat(-), unintentional weight loss(-), malaise (+) HEENT; diplopia (-), rhinorrhea (-), epistaxis (-), otorrhea (-), otalgia (-) Respiratory; shortness of breath (+), wheezing (-), cough (+), sputum (-), pleuritic chest pain (-) Cardiovascular; chest pain (-), peripheral edema (-), paroxysmal nocturnal dyspnea (-), orthopnea (-) Gastrointestinal; nausea (-), vomiting (-), abdominal pain (-), diarrhea (-), constipation (-), melena (-), hematochezia (-) Genitourinary; urinary frequency (-), dysuria (-), urgency (-), flank pain (-), gross hematuria (-), incontinence (-) Skin; rash (-), pruritus (-) 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 General: Cachectic, chronic ill-looking, in no apparent distress,. HEENT: Normocephalic, atraumatic, nonicteric sclera, nonanemic conjunctive. Neck: Supple, without JVD or goiter or thyroid mass. Respiratory: Coarse breath sound bilaterally with crackles but no wheezing or rhonchi. Cardiovascular: Distant heart sound. Gastrointestinal: Normal bowel sounds, nondistended, nontender, No ascites, , No masses, no hepatosplenomegaly. Extremities l: No clubbing, No peripheral edema, full range of motion, no deformity, severe muscle atrophy of all 4 extremities. Integumentary: No rashes, petechia, suspected lesions. Lymphatics: No axilla or cervical lymphadenopathy. Neurology; alert awake oriented x3, no focal neurologic deficit, normal affection . mood and behavior. - Studies Medications List Reviewed: Yes Assessment And Plan - Plan This is a 64 years old gentleman with complex medical problem including COPD on home oxygen, hypertension, coronary artery disease, paroxysmal A-fib, congestive heart failure status post AICD, hypertension old stroke who presented to emergency room for evaluation of shortness of breath and admitted for #1 acute on chronic hypoxic and hypercapnic respiratory failure related to #2 No significant improvement in the past 2 weeks, still requiring high flow nasal cannula with 40 L, BiPAP 20/8 with FiO2 60 Latest ABG. pH is 7.37, pCO2 further down to 80 mmHg from 137 mmHg, #2 bilateral pneumonia of unknown etiology with acute exacerbation of COPD leading to end-stage lung disease No significant change clinically and radiologically, continue to need high flow nasal oxygen up to 40 L/min, BiPAP, follow-up chest x-ray from yesterday personally reviewed extensive bilateral reticulonodular infiltration, no significant improvement. Tested negative for COVID-19 and influenza A and B, sputum culture ordered but unable to obtain, continues empiric antibiotics with levofloxacin plus cefepime, amiodarone discontinued for possible pulmonary toxicity, methylprednisolone 40 mg twice daily, comanaging with offset lithographic press setter, #3 de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, dilated cardiomyopathy, [employer] association heart failure class IV euvolemia on a Bumex and spironolactone urine output 2 L over the past 24-hour, comanaging with medical assistant supervisor Unable to get other guideline directed therapy for borderline hypotension old transthoracic cardiogram reviewed, dilated CMP, ejection fraction 10 to 15%, severe MR and TR, pulmonary hypertension #4 atrial fibrillation with controlled ventricle response Heart rate at target on 12.5 mg metoprolol twice daily, blood pressure is improved, amiodarone discontinued, #5 glucocorticoid induced hyperglycemia Good glycemic control on low-dose insulin sliding scale,.last hemoglobin A1c was normal at 5.5 in 2022, #6 presumed anemia of chronic disease Hemoglobin today 7.5 from 7.1 without transfusion, 3 unit of packed RBC transfused in the past week, no clinical bleeding except 1 episode of hemoptysis. #7 pancytopenia Differential diagnosis include medication induced, or cardiac liver cirrhosis, less likely sepsis related to extensive pneumonia platelet factor 4 antibody ordered, pending, leukocytosis with WBC 10 on steroid, platelet 126, no transfusion indicated #8 elevated troponin and lactate secondary to hypoxia #9 pulmonary cachexia #10 CEE rule out cardiorenal syndrome Serum BUN/creatinine stable at 76/1.0, elevated BUN due to steroid #11 hemoptysis related to #2 Resolved, 1 g of tranexamic acid given, I will resume apixaban today but keep aspirin on hold DVT prophylaxis; apixaban 2.5 mg twice daily Disposition; he has a grave prognosis and serious multiple comorbidities with multiorgans failure, continue to need ICU care, hospice/palliative care discussed with the patient, he revoked hospice multiple times per his offset lithographic press setter, social media manager consulted for possible placement in LTAC, his CODE STATUS is in DNR
--- NOTE | 2024-09-22 09:39 | P.PN ---
Subjective Date of Service: 09/22/24 Chief Complaint: Acute on chronic respiratory failure no significant change patient is alert responsive on nasal cannula oxygen this been titrated down Review of Systems General: Weakness Respiratory: Shortness of Breath Physical Examination - Vital Signs Temperature: 97.1 F Blood Pressure: 111/58 Pulse: 85 Respirations: 22 Pulse Ox (%): 94 - Physical Exam General: Alert, Cooperative Respiratory: Clear to auscultation bilaterally, Diminished Cardiovascular: No edema, Regular rate/rhythm Gastrointestinal: Normal bowel sounds, Soft and benign Other Physical/Emotional Findings: - Physical Exam. General: Cachectic, chronic ill-looking, in no apparent distress,. HEENT: Normocephalic, atraumatic, nonicteric sclera, nonanemic conjunctive. Neck: Supple, without JVD or goiter or thyroid mass. Respiratory: Coarse breath sound bilaterally with crackles but no wheezing or rhonchi. Cardiovascular: Distant heart sound. Gastrointestinal: Normal bowel sounds, nondistended, nontender, No ascites, , No masses, no hepatosplenomegaly. Extremities l: No clubbing, No peripheral edema, full range of motion, no deformity, severe muscle atrophy of all 4 extremities. Integumentary: No rashes, petechia, suspected lesions. Lymphatics: No axilla or cervical lymphadenopathy. Neurology; alert awake oriented x3, no focal neurologic deficit, normal affection . mood and behavior. - Studies Medications List Reviewed: Yes Assessment And Plan - Current Problems (Diagnosis) (1) Acute and chronic respiratory failure with hypercapnia Current Visit: Yes Status: Acute Plan: Patient is currently stable using as needed BiPAP stable to be transferred to the floor eating and drinking white count is declining DC steroid labs pending chest x-ray reviewed no change diffuse interstitial changes
[2024-09-22 09:42] LABS: Hemoglobin 7.7 g/dL (13.6-17.9); MCH 28.4 pg (27.0-35.0); MCHC 31.9 g/dL (32.0-36.0); MPV 9.6 fL (7.6-11.3); Platelets 153 thou/uL (152-406); Red Cell Distribution Width 18.6 % (12.1-15.2)
[2024-09-22 09:55] LABS: Anion Gap 6.3 mEq/L (5.0-15.0); Potassium 4.3 mEq/L (3.5-5.1)
--- NOTE | 2024-09-22 17:11 | P.PN ---
Nephrology note (S) Pt remains in the ICU, off BIPAP when seen, on Vapotherm, doing ok but remains frail, more conversive. Hodge remains in place, diuresing well (O) vitals reviewed in the EMR General: Other (Chronically ill appearing, cachectic ) HEENT: Normocephalic, Other (HFNC) Neck: Other (JVD difficult to obtain) Respiratory: Other (b/l BS, reduced at bases) Cardiovascular: Other (Mild tachy, cardiac murmur), Gallops Gastrointestinal: Soft and benign, Non-distended, No guarding hodge remains in place Musculoskeletal: No swelling, Other (muscle mass loss) Integumentary: No rashes Neurological: Other (Awaken, conversive, no tremors or myoclonus noted) Conclusions/Impression: A/P) 1. Stage II CEE last mo 2nd to likely some ischemic ATN developing in the setting of renal hypoperfusion with severe cardiomyopathy, low CO state, relative hypotension, elevated filling pressures with associated CRS, severe hypercarbia which has its own renal plasma flow effects and other. UOP borderline oliguric briefly but now diuresing well. Cr level has downward trended but pt with diminished muscle mass, nonetheless CrCl notably improved, can adjust meds (Abx) accordingly Cont to monitor closely Mod azotemia persists, multifactorial, trend 2. Retention of urine, unspecified -likely multifactorial, hodge put back in, maintain for now 3. Metab alkalosis, compensatory for resp acidosis 2nd to hypercarbia and CHF. Monitor bicarb levels, keep K > 4, cont Spironolactone/Diamox for now 4. Severe cardiomyopathy unspecified. Acute on chronic systolic + diastolic CHF, pulm HTN 2nd to left sided heart disease. MAP at bedside currently acceptable. Cont diuretics, last CXR did not show any sig improvement in infiltrates. Switch ed from IV lasix to PO Bumex 5. Acute on chronic anemia, multifactorial. Thrombocytopenia. Counts remain low despite recent transfusions Defer continuation of anticoagulation therapy to IM team. Remains in tenuous status despite some stabilization of condition, plan for LTAC noted Marito Menjivar MD, EMILIO
[2024-09-23] MEDS: CEFEPIME 2 GM in NA CHLORIDE 0.9% 100 ML IV SCH (08:28)
--- NOTE | 2024-09-23 11:40 | P.PN ---
Subjective Date of Service: 09/23/24 Chief Complaint: Acute on chronic respiratory failure Subjective: No new changes Patient transferred to general medical floor from ICU yesterday. No overnight event, no change in patient condition, still on high flow oxygen by nasal cannula during the day and BiPAP at night Review of Systems Other: Consitutional; fever(-), chills (-), rigor(-), night sweat(-), unintentional weight loss(-), malaise (+) HEENT; diplopia (-), rhinorrhea (-), epistaxis (-), otorrhea (-), otalgia (-) Respiratory; shortness of breath (+), wheezing (-), cough (+), sputum (-), pleuritic chest pain (-) Cardiovascular; chest pain (-), peripheral edema (-), paroxysmal nocturnal dyspnea (-), orthopnea (-) Gastrointestinal; nausea (-), vomiting (-), abdominal pain (-), diarrhea (-), constipation (-), melena (-), hematochezia (-) Genitourinary; urinary frequency (-), dysuria (-), urgency (-), flank pain (-), gross hematuria (-), incontinence (-) Skin; rash (-), pruritus (-) 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 General: Cachectic, chronic ill-looking, in no apparent distress,. HEENT: Normocephalic, atraumatic, nonicteric sclera, nonanemic conjunctive. Neck: Supple, without JVD or goiter or thyroid mass. Respiratory: Coarse breath sound bilaterally with crackles and mild end expiratory wheezing occasionally. Cardiovascular: Distant heart sound. Gastrointestinal: Normal bowel sounds, nondistended, nontender, No ascites, , No masses, no hepatosplenomegaly. Extremities l: No clubbing, No peripheral edema, full range of motion, no deformity, severe muscle atrophy of all 4 extremities. Integumentary: No rashes, petechia, suspected lesions. Lymphatics: No axilla or cervical lymphadenopathy. Neurology; alert awake oriented x3, no focal neurologic deficit, normal affection . mood and behavior. - Studies Medications List Reviewed: Yes Assessment And Plan - Plan This is a 64 years old gentleman with complex medical problem including COPD on home oxygen, hypertension, coronary artery disease, paroxysmal A-fib, congestive heart failure status post AICD, hypertension old stroke who presented to emergency room for evaluation of shortness of breath and admitted for #1 acute on chronic hypoxic and hypercapnic respiratory failure related to #2 No significant improvement in the past 2 weeks, still requiring high flow nasal cannula with 40 L, BiPAP 20/8 with FiO2 60 Latest ABG. pH is 7.37, pCO2 further down to 80 mmHg from 137 mmHg, #2 bilateral pneumonia of unknown etiology with acute exacerbation of COPD leading to end-stage lung disease No significant change clinically and radiologically, continue to need high flow nasal oxygen up to 40 L/min, BiPAP, follow-up chest x-ray on September 21 extensive bilateral reticulonodular infiltration, no significant improvement. Tested negative for COVID-19 and influenza A and B, sputum culture ordered but unable to obtain, continues empiric antibiotics with levofloxacin plus cefepime, amiodarone discontinued for possible pulmonary toxicity, systemic steroid tapered off, comanaging with senior tax manager, #3 de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, dilated cardiomyopathy, [employer] heart association heart failure class IV euvolemia on Bumex and spironolactone urine output 2 L over the past 24-hour, comanaging with crayon molding machine operator Unable to get other guideline directed therapy for borderline hypotension old transthoracic cardiogram reviewed, dilated CMP, ejection fraction 10 to 15%, severe MR and TR, pulmonary hypertension #4 atrial fibrillation with controlled ventricle response Heart rate at target on 12.5 mg metoprolol twice daily, blood pressure is improved, amiodarone discontinued, #5 glucocorticoid induced hyperglycemia Good glycemic control on low-dose insulin sliding scale,.last hemoglobin A1c was normal at 5.5 in 2022, #6 presumed anemia of chronic disease Hemoglobin today 7.5 from 7.1 without transfusion, 3 unit of packed RBC transfused in the past week, no clinical bleeding except 1 episode of hemoptysis. #7 pancytopenia Differential diagnosis include medication induced, or cardiac liver cirrhosis, less likely sepsis related to extensive pneumonia platelet factor 4 antibody ordered, pending, leukocytosis with WBC 10 on steroid, platelet 126, no transfusion indicated #8 elevated troponin and lactate secondary to hypoxia #9 pulmonary cachexia #10 CEE rule out cardiorenal syndrome Serum BUN/creatinine stable at 76/1.0, elevated BUN due to steroid #11 hemoptysis related to #2 Resolved, 1 g of tranexamic acid given, I will resume apixaban today but keep aspirin on hold DVT prophylaxis; apixaban 2.5 mg twice daily Disposition; he has a grave prognosis and serious multiple comorbidities with multiorgans failure,, hospice/palliative care discussed with the patient, he revoked hospice multiple times per his senior tax manager, social media intern consulted for possible placement in LTAC, his CODE STATUS is in DNR
--- NOTE | 2024-09-24 10:00 | P.PN ---
Date of Service: 09/24/24 Vital Signs Temp Pulse Resp BP Pulse Ox 98.2 F 102 H 16 104/69 86 L 09/24/24 08:00 09/24/24 08:00 09/24/24 08:00 09/24/24 08:00 09/24/24 08:00 Medications Acetaminophen (Acetaminophen 325 Mg Tablet) 650 mg PO Q4HP PRN PRN Reason: Pain scale 2-4 (Mild) Last Admin: 09/22/24 04:26 Dose: 650 mg Acetazolamide (Acetazolamide 250 Mg Tab) 250 mg PO Q24H [facility] Last Admin: 09/23/24 12:14 Dose: 250 mg Albuterol Sulfate (Albuterol 2.5 Mg/3 Ml Neb Ingrid) 2.5 mg NEB Q6HP PRN PRN Reason: SHORTNESS OF BREATH Last Admin: 09/23/24 00:46 Dose: 2.5 mg Apixaban (Apixaban 2.5 Mg Tablet) 2.5 mg PO BID [facility] Last Admin: 09/24/24 08:46 Dose: 2.5 mg Arformoterol Tartrate (Arformoterol Tartrate 15 Mcg/2 Ml Vial.Neb) 15 mcg NEB BIDRESP [facility] Last Admin: 09/24/24 07:45 Dose: 15 mcg Benzonatate (Benzonatate 100 Mg Cap) 100 mg PO TID [facility] Last Admin: 09/24/24 08:46 Dose: 100 mg Bisacodyl (Bisacodyl 10 Mg Rectal Supp) 10 mg TN DAILY PRN PRN Reason: CONSTIPATION Bumetanide (Bumetanide 1 Mg Tablet) 1 mg PO BIDL [facility] Last Admin: 09/24/24 08:55 Dose: 1 mg Calcium Carbonate/Glycine (Calcium Carbonate Chew 500mg Tab) 500 mg PO TIDWMHS PRN PRN Reason: INDIGESTION Docusate Sodium (Docusate Na 100 Mg Cap) 100 mg PO BID [facility] Last Admin: 09/24/24 08:46 Dose: 100 mg Fentanyl Citrate (Fentanyl Citr 100 Mcg/2 Ml) 25 mcg IV Q4H PRN PRN Reason: Pain scale 8-10 (Severe) Last Admin: 09/24/24 04:23 Dose: 25 mcg Cefepime HCl 2 gm/ Sodium (Chloride) 100 mls @ 200 mls/hr IV Q24H [facility] Last Admin: 09/24/24 08:46 Dose: 100 mls Ipratropium [place] (Ipratropium Brom 0.5mg/2.5ml) 0.5 mg NEB [id number] [facility] Last Admin: 09/24/24 07:45 Dose: 0.5 mg Levofloxacin (Levofloxacin 250 Mg Tab) 250 mg PO DAILY [facility]; Protocol Last Admin: 09/24/24 08:46 Dose: 250 mg Lorazepam (Lorazepam 0.5 Mg Tablet) 0.5 mg PO Q8H PRN PRN Reason: ANXIETY Last Admin: 09/23/24 19:59 Dose: 0.5 mg Magnesium Oxide (Magnesium Oxide 400 Mg Tab) 400 mg PO DAILY [facility] Last Admin: 09/24/24 08:47 Dose: 400 mg Metoprolol Succinate (Metoprolol Xl 25 Mg Tab) 12.5 mg PO [id number] [facility] Last Admin: 09/24/24 05:24 Dose: 12.5 mg Midodrine (Midodrine Hcl 5 Mg Tablet) 5 mg PO TID [facility] Last Admin: 09/24/24 08:51 Dose: 5 mg Nicotine (Nicotine 21 Mg/Pat) 21 mg TD DAILY [facility] Last Admin: 09/24/24 08:47 Dose: Not Given Nutritional Formula (Ensure Enlive 237 Ml Can) 237 ml PO TID [facility] Last Admin: 09/24/24 08:47 Dose: 237 ml Ondansetron HCl (Ondansetron 4 Mg/2 Ml Vial) 4 mg IV Q6HP PRN PRN Reason: NAUSEA / VOMITING Last Admin: 09/09/24 13:35 Dose: 4 mg Polyethylene Glycol (Polyethyl Gly 3350 17 Gm/Dose) 17 gm PO DAILY [facility] Last Admin: 09/24/24 08:47 Dose: 17 gm Potassium Bicarbonate (Potassium 25 Meq Efferv Tab) 25 meq PO DAILY [facility] Last Admin: 09/24/24 08:46 Dose: 25 meq Sodium Chloride (Sodium Chloride 0.9% 10ml Inj) 10 ml IV UD PRN PRN Reason: Diluant Spironolactone (Spironolactone 25 Mg Tablet) 25 mg PO BID [facility] Last Admin: 09/24/24 08:51 Dose: 25 mg Thiamine HCl (Thiamine Hcl 100 Mg Tablet) 200 mg PO DAILY [facility] Last Admin: 09/24/24 08:46 Dose: 200 mg Microbiology Results 09/04/24 18:49 Blood - Blood Aerobic Blood Culture - Final No growth in 5 days. 09/04/24 18:49 Blood - Blood Anaerobic Blood Culture - Final No growth in 5 days. 09/04/24 19:11 Blood - Blood Aerobic Blood Culture - Final No growth in 5 days. 09/04/24 19:11 Blood - Blood Anaerobic Blood Culture - Final No growth in 5 days. 09/04/24 19:00 Nasopharnyx Influenza Type A Antigen Screen - Final 09/04/24 19:00 Nasopharnyx Influenza Type B Antigen Screen - Final Assessment/ Plan: Nephrology Improving dyspnea No chest pain +Appetite No acute events overnight Vitals, medications, blood work and imaging reviewed in the chart NAD. MMM. NCAT. Normal Respiratory Effort. S1S2. ND Abd. No C/C/E. No rash. AAO. Normal speech. Diffuse muscle atrophy. Stage II CEE likely CRS Uremia -No NSAIDs -Continue diuresis Hyponatremia -Continue Bumex Hypokalemia -Hold potassium supplementation -Continue Spironolactone Metabolic Alkalosis -Continue Diamox Hypotension -Continue Midodrine Systolic Diastolic CHF, A/C CMP Pulmonary HTN -Continue diuresis A/C Respiratory Failure with hypercapnia & hypoxia -Bipap prn -Continue Oxygen supplementation Anemia in chronic illness Thrombocytopenia -Monitor CBC -PRBC prn Hospitalist note reviewed
[2024-09-24] MEDS: levoFLOXacin 500 MG TAB PO ONE (11:04)
[2024-09-24] MEDS: CEFEPIME 2 GM in NA CHLORIDE 0.9% 100 ML IV SCH (21:17)
[2024-09-25 06:22] LABS: Absolute Eosinophils 0.1 K/uL (0-0.5); Absolute Lymphocytes (CBC) 0.3 K/uL (0.7-4.9); Absolute Monocytes 0.3 K/uL (0.1-1.3); Absolute Neutrophil 11.6 K/uL (1.8-8.0); Basophils % 0.1 % (0-1.3); Eosinophils % 0.7 % (0-4.4); Hemoglobin 8.5 g/dL (13.6-17.9); Lymphocytes % 2.3 % (15.3-44.8); MCH 29.3 pg (27.0-35.0); MCHC 32.8 g/dL (32.0-36.0); MCV 89.3 fL (80-100); MPV 10.1 fL (7.6-11.3); Monocytes % 2.5 % (3.3-12.3); Neutrophils % 94.4 % (41.7-73.7); Nucleated Red Blood Cells % 0.1 % (0-0); Platelets 122 thou/uL (152-406); RBC Red Blood Cell Count 2.92 M/uL (4.33-5.43); Red Cell Distribution Width 18.7 % (12.1-15.2)
[2024-09-25 08:30] LABS: Anisocytosis 1+; Blood Morphology Comment NOTED (NOT SEEN); Platelet Estimate ADEQ; White Blood Cell Scan OK (OK)
--- NOTE | 2024-09-25 18:24 | P.PN ---
Date of Service: 09/24/24 Subjective Patient has been downgraded from ICU. However, patient still remains on high flow oxygen at 60%. Patient's starting to eat a little bit better at this time. He has not really participated that well with physical therapy but he is doing range of motion and we are trying to build up to get him to start ambulating. Patient's prognosis is poor, but surprisingly he is starting to show some improvement. Continue with weaning down oxygen. awaiting for LTAC placement. Physical Examination - Vital Signs Reviewed - Physical Exam General: Alert, In no apparent distress, Cachectic, Disheveled, Continues on high-flow oxygen at 60%. Respiratory: Diminished, Expiratory wheezes Cardiovascular: Regular rate/rhythm, Normal S1 S2, Systolic murmur Gastrointestinal: Hypoactive, Soft and benign, Non-distended, No tenderness, Scaphoid abdomen; varicosities on the abdominal wall Neurological: generalized weakness; decreased strength. Assessment & Plan - Problems (Diagnosis) (1) Acute and chronic respiratory failure with hypercapnia Current Visit: Yes Status: Acute (2) Atrial fibrillation Current Visit: Yes Status: Acute (3) Chronic combined systolic (congestive) and diastolic (congestive) heart failure Current Visit: Yes Status: Acute (4) CVA (cerebral vascular accident)/Vascular dementia Onset Date: 03/14/18 Current Visit: No Status: Acute (5) Depression Current Visit: No Status: Acute Depression Type: major depressive disorder (6) Pulmonary hypertension Current Visit: No Status: Acute (7) Bicytopenia Current Visit: Yes Status: Resolved (8) CEE (acute kidney injury) Current Visit: Yes Status: Acute (9) Uremia Current Visit: Yes Status: Acute - Plan Continue with plan of care as mentioned below: 1. Patient with acute on chronic hypercapnic respiratory failure secondary to COPD exacerbation and heart failure with reduced ejection fraction and valvular disease. Continue diuretics, and continue with nebs, steroids, and will continue with antibiotics. Continue with antibiotic therapy. Will monitor with serial x-rays. 2. Heart failure with reduced ejection fraction; echocardiogram with an ejection fraction of 10 to 15%. Patient with a defibrillator placed. Patient also with diastolic dysfunction with elevated filling pressures. Patient with severe mitral regurgitation; cardiology consultation appreciated. Patient on diuretics. Will monitor volume status and may need to add additional Lasix doses. Appreciate cardiology and nephrology consultation. However, prognosis is poor. 3. Patient with cardiorenal syndrome; patient with worsening renal function. Patient with significant uremia. Patient with echocardiogram with significantly elevated right atrial pressures with severe pulmonary hypertension. Most likely elevated renal venous pressures with decreased renal perfusion. Monitor volume status closely. Patient's prognosis remains very poor. Patient ejection fraction is 10 to 15% and with this unlikely to assist in improvement of renal perfusion- patient is most likely headed towards renal failure. Will continue with diuresing. Appreciate Nephrology's assistance in patient's care. 4. Severe pulmonary hypertension with elevated right atrial pressures; will benefit from sildenafil. Plan to discuss with Pulmonary. 5. Severe malnutrition; Nutrition starting to improve. Continue monitoring nutritional status. Continue ensures with meals. 6. Bicytopenia; Hemoglobin & platelet count is stable. Monitor H&H and platelet count. Discharge Plan: Other Plan to discharge in: Greater than 2 days
--- NOTE | 2024-09-25 20:24 | P.PN ---
Date of Service: 09/25/24 Vital Signs Temp Pulse Resp BP Pulse Ox 98.3 F 90 18 98/54 L 98 09/25/24 16:00 09/25/24 16:00 09/25/24 16:00 09/25/24 16:00 09/25/24 16:00 Medications Acetaminophen (Acetaminophen 325 Mg Tablet) 650 mg PO Q4HP PRN PRN Reason: Pain scale 2-4 (Mild) Last Admin: 09/25/24 02:15 Dose: 650 mg Acetazolamide (Acetazolamide 250 Mg Tab) 250 mg PO Q24H [facility] Last Admin: 09/25/24 12:34 Dose: 250 mg Albuterol Sulfate (Albuterol 2.5 Mg/3 Ml Neb Ingrid) 2.5 mg NEB Q6HP PRN PRN Reason: SHORTNESS OF BREATH Last Admin: 09/23/24 00:46 Dose: 2.5 mg Apixaban (Apixaban 2.5 Mg Tablet) 2.5 mg PO BID [facility] Last Admin: 09/25/24 08:47 Dose: 2.5 mg Arformoterol Tartrate (Arformoterol Tartrate 15 Mcg/2 Ml Vial.Neb) 15 mcg NEB BIDRESP [facility] Last Admin: 09/25/24 08:11 Dose: 15 mcg Benzonatate (Benzonatate 100 Mg Cap) 100 mg PO TID [facility] Last Admin: 09/25/24 12:34 Dose: 100 mg Bisacodyl (Bisacodyl 10 Mg Rectal Supp) 10 mg [place] DAILY PRN PRN Reason: CONSTIPATION Bumetanide (Bumetanide 1 Mg Tablet) 1 mg PO BIDL [facility] Last Admin: 09/25/24 16:20 Dose: Not Given Calcium Carbonate/Glycine (Calcium Carbonate Chew 500mg Tab) 500 mg PO TIDWMHS PRN PRN Reason: INDIGESTION Docusate Sodium (Docusate Na 100 Mg Cap) 100 mg PO BID [facility] Last Admin: 09/25/24 08:48 Dose: 100 mg Fentanyl Citrate (Fentanyl Citr 100 Mcg/2 Ml) 25 mcg IV Q4H PRN PRN Reason: Pain scale 8-10 (Severe) Last Admin: 09/25/24 17:46 Dose: 25 mcg Cefepime HCl 2 gm/ Sodium (Chloride) 100 mls @ 200 mls/hr IV Q12HR [facility] Last Admin: 09/25/24 08:47 Dose: 100 mls Ipratropium [place] (Ipratropium Brom 0.5mg/2.5ml) 0.5 mg NEB [id number] [facility] Last Admin: 09/25/24 13:55 Dose: 0.5 mg Levofloxacin (Levofloxacin 750 Mg Tab) 750 mg PO Q48H [facility]; Protocol Magnesium Oxide (Magnesium Oxide 400 Mg Tab) 400 mg PO DAILY [facility] Last Admin: 09/25/24 08:48 Dose: 400 mg Metoprolol Succinate (Metoprolol Xl 25 Mg Tab) 12.5 mg PO [id number] [facility] Last Admin: 09/25/24 06:31 Dose: 12.5 mg Midodrine (Midodrine Hcl 5 Mg Tablet) 5 mg PO TID [facility] Last Admin: 09/25/24 12:34 Dose: 5 mg Nicotine (Nicotine 21 Mg/Pat) 21 mg TD DAILY [facility] Last Admin: 09/25/24 08:49 Dose: 21 mg Nutritional Formula (Ensure Enlive 237 Ml Can) 237 ml PO TID [facility] Last Admin: 09/25/24 12:34 Dose: 237 ml Ondansetron HCl (Ondansetron 4 Mg/2 Ml Vial) 4 mg IV Q6HP PRN PRN Reason: NAUSEA / VOMITING Last Admin: 09/25/24 16:40 Dose: 4 mg Polyethylene Glycol (Polyethyl Gly 3350 17 Gm/Dose) 17 gm PO DAILY [facility] Last Admin: 09/25/24 08:49 Dose: 17 gm Sodium Chloride (Sodium Chloride 0.9% 10ml Inj) 10 ml IV UD PRN PRN Reason: Diluant Spironolactone (Spironolactone 25 Mg Tablet) 25 mg PO BID [facility] Last Admin: 09/25/24 08:47 Dose: 25 mg Thiamine HCl (Thiamine Hcl 100 Mg Tablet) 200 mg PO DAILY [facility] Last Admin: 09/25/24 08:47 Dose: 200 mg Microbiology Results 09/04/24 18:49 Blood - Blood Aerobic Blood Culture - Final No growth in 5 days. 09/04/24 18:49 Blood - Blood Anaerobic Blood Culture - Final No growth in 5 days. 09/04/24 19:11 Blood - Blood Aerobic Blood Culture - Final No growth in 5 days. 09/04/24 19:11 Blood - Blood Anaerobic Blood Culture - Final No growth in 5 days. 09/04/24 19:00 Nasopharnyx Influenza Type A Antigen Screen - Final 09/04/24 19:00 Nasopharnyx Influenza Type B Antigen Screen - Final Assessment/ Plan: Nephrology Improving dyspnea No chest pain +Appetite No acute events overnight Vitals, medications, blood work and imaging reviewed in the chart NAD. MMM. NCAT. Normal Respiratory Effort. S1S2. ND Abd. No C/C/E. No rash. AAO. Normal speech. Diffuse muscle atrophy. Stage II CEE likely CRS Uremia -No NSAIDs -Continue diuresis Hyponatremia -Continue Bumex Hypokalemia -Hold potassium supplementation -Continue Spironolactone Metabolic Alkalosis -Continue Diamox Hypotension -Continue Midodrine Systolic Diastolic CHF, A/C CMP Pulmonary HTN -Continue diuresis A/C Respiratory Failure with hypercapnia & hypoxia -Bipap prn -Continue Oxygen supplementation Anemia in chronic illness Thrombocytopenia -Monitor CBC -PRBC prn Hospitalist note reviewed
[2024-09-26] MEDS: TRAZODONE 50 MG TABLET PO ONE (00:25)
[2024-09-26 07:59] LABS: ALT/SGPT 30 U/L (16-61); Albumin 2.7 g/dL (3.4-5.0); Albumin/Globulin Ratio 0.8 (1.1-1.8); Alkaline Phosphatase 113 U/L (45-117); Anion Gap 10.4 mEq/L (5.0-15.0); BUN Blood Urea Nitrogen 94 mg/dL (7-18); Bicarbonate 39 mEq/L (21-32); Bilirubin Total 1.6 mg/dL (0.2-1.0); Globulin 3.2 g/dL (2.3-3.5); Glomerular Filtration Rate 65 ml/min (=/>90); Glucose Level 138 mg/dL (74-106); Magnesium 2.5 mg/dL (1.6-2.4); Phosphorus 4.6 mg/dL (2.5-4.9); Potassium 4.4 mEq/L (3.5-5.1); Protein, Total 5.9 g/dL (6.4-8.2); Sodium Level 132 mEq/L (136-145)
[2024-09-26 08:00] LABS: AST/SGOT < 10 U/L (15-37)
[2024-09-26] MEDS: levoFLOXacin 750 MG TAB PO SCH (08:42)
[2024-09-26 11:02] LABS: Ferritin 167.3 ng/mL (26-388)
--- NOTE | 2024-09-26 20:59 | P.PN ---
Date of Service: 09/26/24 Vital Signs Temp Pulse Resp BP Pulse Ox 97.7 F 93 H 18 99/60 99 09/26/24 15:58 09/26/24 20:08 09/26/24 20:09 09/26/24 20:08 09/26/24 20:09 Medications Acetaminophen (Acetaminophen 325 Mg Tablet) 650 mg PO Q4HP PRN PRN Reason: Pain scale 2-4 (Mild) Last Admin: 09/26/24 13:32 Dose: 650 mg Acetazolamide (Acetazolamide 250 Mg Tab) 250 mg PO Q24H [facility] Last Admin: 09/26/24 11:32 Dose: 250 mg Albuterol Sulfate (Albuterol 2.5 Mg/3 Ml Neb Ingrid) 2.5 mg NEB Q6HP PRN PRN Reason: SHORTNESS OF BREATH Last Admin: 09/23/24 00:46 Dose: 2.5 mg Apixaban (Apixaban 2.5 Mg Tablet) 2.5 mg PO BID [facility] Last Admin: 09/26/24 20:08 Dose: 2.5 mg Arformoterol Tartrate (Arformoterol Tartrate 15 Mcg/2 Ml Vial.Neb) 15 mcg NEB BIDRESP [facility] Last Admin: 09/26/24 19:47 Dose: 15 mcg Benzonatate (Benzonatate 100 Mg Cap) 100 mg PO TID [facility] Last Admin: 09/26/24 20:07 Dose: 100 mg Bisacodyl (Bisacodyl 10 Mg Rectal Supp) 10 mg [place] DAILY PRN PRN Reason: CONSTIPATION Bumetanide (Bumetanide 1 Mg Tablet) 1 mg PO BIDL [facility] Last Admin: 09/26/24 16:54 Dose: 1 mg Calcium Carbonate/Glycine (Calcium Carbonate Chew 500mg Tab) 500 mg PO TIDWMHS PRN PRN Reason: INDIGESTION Docusate Sodium (Docusate Na 100 Mg Cap) 100 mg PO BID [facility] Last Admin: 09/26/24 20:08 Dose: 100 mg Fentanyl Citrate (Fentanyl Citr 100 Mcg/2 Ml) 25 mcg IV Q4H PRN PRN Reason: Pain scale 8-10 (Severe) Last Admin: 09/26/24 20:09 Dose: 25 mcg Cefepime HCl 2 gm/ Sodium (Chloride) 100 mls @ 200 mls/hr IV Q12HR [facility] Last Admin: 09/26/24 20:07 Dose: 100 mls Ferric Sodium Gluconate Complex 125 mg/ Sodium Chloride 110 mls @ 100 mls/hr IV ONCE ONE Stop: 09/26/24 21:53 Ipratropium [place] (Ipratropium Brom 0.5mg/2.5ml) 0.5 mg NEB [id number] [facility] Last Admin: 09/26/24 19:47 Dose: 0.5 mg Levofloxacin (Levofloxacin 750 Mg Tab) 750 mg PO Q48H [facility]; Protocol Last Admin: 09/26/24 08:42 Dose: 750 mg Magnesium Oxide (Magnesium Oxide 400 Mg Tab) 400 mg PO DAILY [facility] Last Admin: 09/26/24 08:53 Dose: 400 mg Metoprolol Succinate (Metoprolol Xl 25 Mg Tab) 12.5 mg PO [id number] [facility] Last Admin: 09/26/24 05:14 Dose: Not Given Midodrine (Midodrine Hcl 5 Mg Tablet) 5 mg PO TID [facility] Last Admin: 09/26/24 20:08 Dose: 5 mg Multivitamins/Iron (Fe Sulf/Fa/Vit B Comp & C Tab) 1 tab PO DAILY WITH BREAKFAST [facility] Nicotine (Nicotine 21 Mg/Pat) 21 mg TD DAILY [facility] Last Admin: 09/26/24 08:41 Dose: 21 mg Nutritional Formula (Ensure Enlive 237 Ml Can) 237 ml PO TID [facility] Last Admin: 09/26/24 20:09 Dose: 237 ml Ondansetron HCl (Ondansetron 4 Mg/2 Ml Vial) 4 mg IV Q6HP PRN PRN Reason: NAUSEA / VOMITING Last Admin: 09/25/24 16:40 Dose: 4 mg Polyethylene Glycol (Polyethyl Gly 3350 17 Gm/Dose) 17 gm PO DAILY [facility] Last Admin: 09/26/24 08:42 Dose: 17 gm Sodium Chloride (Sodium Chloride 0.9% 10ml Inj) 10 ml IV UD PRN PRN Reason: Diluant Spironolactone (Spironolactone 25 Mg Tablet) 25 mg PO BID [facility] Last Admin: 09/26/24 20:08 Dose: Not Given Thiamine HCl (Thiamine Hcl 100 Mg Tablet) 200 mg PO DAILY [facility] Last Admin: 09/26/24 08:42 Dose: 200 mg Microbiology Results 09/04/24 18:49 Blood - Blood Aerobic Blood Culture - Final No growth in 5 days. 09/04/24 18:49 Blood - Blood Anaerobic Blood Culture - Final No growth in 5 days. 09/04/24 19:11 Blood - Blood Aerobic Blood Culture - Final No growth in 5 days. 09/04/24 19:11 Blood - Blood Anaerobic Blood Culture - Final No growth in 5 days. 09/04/24 19:00 Nasopharnyx Influenza Type A Antigen Screen - Final 09/04/24 19:00 Nasopharnyx Influenza Type B Antigen Screen - Final Assessment/ Plan: Nephrology Improving dyspnea No chest pain +Appetite No acute events overnight Vitals, medications, blood work and imaging reviewed in the chart NAD. MMM. NCAT. Normal Respiratory Effort. S1S2. ND Abd. No C/C/E. No rash. AAO. Normal speech. Diffuse muscle atrophy. Stage II CEE likely CRS Uremia -No NSAIDs -Continue diuresis Hyponatremia -Continue Bumex Hypokalemia -Continue Spironolactone Metabolic Alkalosis -Continue Diamox Hypotension -Continue Midodrine Systolic Diastolic CHF, A/C CMP Pulmonary HTN -Continue diuresis A/C Respiratory Failure with hypercapnia & hypoxia -Bipap prn -Continue Oxygen supplementation Anemia in chronic illness Thrombocytopenia -Monitor CBC -PRBC prn Hospitalist note reviewed
[2024-09-26] MEDS: SOD FERRIC GLUC COMPLX/SUCROSE 125 MG in NA CHLORIDE 0.9% 100 ML IV ONE (22:35)
[2024-09-27 07:10] LABS: Albumin 2.6 g/dL (3.4-5.0); Anion Gap 8.9 mEq/L (5.0-15.0); Magnesium 2.7 mg/dL (1.6-2.4); Phosphorus 3.9 mg/dL (2.5-4.9); Potassium 3.9 mEq/L (3.5-5.1)
--- NOTE | 2024-09-27 08:45 | P.PN ---
Subjective Date of Service: 09/27/24 Chief Complaint: Acute on chronic respiratory failure Patient is doing much better he is more alert responsive oriented eating and drinking still very short of breath Review of Systems General: Weakness Respiratory: Shortness of Breath Physical Examination - Vital Signs Temperature: 97.7 F Blood Pressure: 90/53 Pulse: 79 Respirations: 18 Pulse Ox (%): 100 - Physical Exam General: Alert, Oriented x3, Mild distress Respiratory: Clear to auscultation bilaterally Cardiovascular: No edema, Regular rate/rhythm, Normal S1 S2 Other Physical/Emotional Findings: - - Studies Medications List Reviewed: Yes Assessment And Plan - Current Problems (Diagnosis) (1) Acute and chronic respiratory failure with hypercapnia Current Visit: Yes Status: Acute Plan: Patient has chronic terminal respiratory failure secondary to COPD and terminal congestive heart failure is currently stable doing better renal function stable white count declining DC IV antibiotics overall prognosis poor I do not think patient will be able to live alone by himself titrate off the high flow oxygen
[2024-09-27] MEDS: FE SULF/FA/VIT B COMP & C TAB PO SCH (08:54)
[2024-09-27] MEDS: POTASSIUM CL SA 10 MEQ TAB PO ONE (08:54)
--- NOTE | 2024-09-27 10:16 | P.PN ---
Date of Service: 09/27/24 Vital Signs Temp Pulse Resp BP Pulse Ox 97.7 F 79 18 90/53 L 100 09/27/24 08:46 09/27/24 08:55 09/27/24 08:46 09/27/24 08:55 09/27/24 08:46 Medications Acetaminophen (Acetaminophen 325 Mg Tablet) 650 mg PO Q4HP PRN PRN Reason: Pain scale 2-4 (Mild) Last Admin: 09/26/24 22:40 Dose: 650 mg Acetazolamide (Acetazolamide 250 Mg Tab) 250 mg PO Q24H [facility] Last Admin: 09/26/24 11:32 Dose: 250 mg Albuterol Sulfate (Albuterol 2.5 Mg/3 Ml Neb Ingrid) 2.5 mg NEB Q6HP PRN PRN Reason: SHORTNESS OF BREATH Last Admin: 09/23/24 00:46 Dose: 2.5 mg Apixaban (Apixaban 2.5 Mg Tablet) 2.5 mg PO BID [facility] Last Admin: 09/27/24 08:54 Dose: 2.5 mg Arformoterol Tartrate (Arformoterol Tartrate 15 Mcg/2 Ml Vial.Neb) 15 mcg NEB BIDRESP [facility] Last Admin: 09/27/24 08:08 Dose: 15 mcg Benzonatate (Benzonatate 100 Mg Cap) 100 mg PO TID [facility] Last Admin: 09/27/24 08:54 Dose: 100 mg Bisacodyl (Bisacodyl 10 Mg Rectal Supp) 10 mg [place] DAILY PRN PRN Reason: CONSTIPATION Bumetanide (Bumetanide 1 Mg Tablet) 1 mg PO BIDL [facility] Last Admin: 09/27/24 08:54 Dose: 1 mg Calcium Carbonate/Glycine (Calcium Carbonate Chew 500mg Tab) 500 mg PO TIDWMHS PRN PRN Reason: INDIGESTION Docusate Sodium (Docusate Na 100 Mg Cap) 100 mg PO BID [facility] Last Admin: 09/27/24 08:54 Dose: 100 mg Fentanyl Citrate (Fentanyl Citr 100 Mcg/2 Ml) 25 mcg IV Q4H PRN PRN Reason: Pain scale 8-10 (Severe) Last Admin: 09/27/24 09:26 Dose: 25 mcg Ferric Sodium Gluconate Complex 125 mg/ Sodium Chloride 110 mls @ 100 mls/hr IV ONCE ONE Stop: 09/27/24 11:12 Ipratropium [place] (Ipratropium Brom 0.5mg/2.5ml) 0.5 mg NEB [id number] [facility] Last Admin: 09/27/24 08:08 Dose: 0.5 mg Levofloxacin (Levofloxacin 750 Mg Tab) 750 mg PO Q48H [facility]; Protocol Last Admin: 09/26/24 08:42 Dose: 750 mg Magnesium Oxide (Magnesium Oxide 400 Mg Tab) 400 mg PO DAILY [facility] Last Admin: 09/27/24 08:54 Dose: 400 mg Metoprolol Succinate (Metoprolol Xl 25 Mg Tab) 12.5 mg PO [id number] [facility] Last Admin: 09/27/24 06:00 Dose: Not Given Midodrine (Midodrine Hcl 5 Mg Tablet) 5 mg PO TID [facility] Last Admin: 09/27/24 08:54 Dose: 5 mg Multivitamins/Iron (Fe Sulf/Fa/Vit B Comp & C Tab) 1 tab PO DAILY WITH BREAKFAST [facility] Last Admin: 09/27/24 08:54 Dose: 1 tab Nicotine (Nicotine 21 Mg/Pat) 21 mg TD DAILY [facility] Last Admin: 09/27/24 08:55 Dose: 21 mg Nutritional Formula (Ensure Enlive 237 Ml Can) 237 ml PO TID [facility] Last Admin: 09/27/24 08:55 Dose: 237 ml Ondansetron HCl (Ondansetron 4 Mg/2 Ml Vial) 4 mg IV Q6HP PRN PRN Reason: NAUSEA / VOMITING Last Admin: 09/25/24 16:40 Dose: 4 mg Polyethylene Glycol (Polyethyl Gly 3350 17 Gm/Dose) 17 gm PO DAILY [facility] Last Admin: 09/27/24 08:54 Dose: 17 gm Sodium Chloride (Sodium Chloride 0.9% 10ml Inj) 10 ml IV UD PRN PRN Reason: Diluant Spironolactone (Spironolactone 25 Mg Tablet) 25 mg PO BID [facility] Last Admin: 09/27/24 08:55 Dose: Not Given Thiamine HCl (Thiamine Hcl 100 Mg Tablet) 200 mg PO DAILY [facility] Last Admin: 09/27/24 08:54 Dose: 200 mg Microbiology Results 09/04/24 18:49 Blood - Blood Aerobic Blood Culture - Final No growth in 5 days. 09/04/24 18:49 Blood - Blood Anaerobic Blood Culture - Final No growth in 5 days. 09/04/24 19:11 Blood - Blood Aerobic Blood Culture - Final No growth in 5 days. 09/04/24 19:11 Blood - Blood Anaerobic Blood Culture - Final No growth in 5 days. 09/04/24 19:00 Nasopharnyx Influenza Type A Antigen Screen - Final 09/04/24 19:00 Nasopharnyx Influenza Type B Antigen Screen - Final Assessment/ Plan: Nephrology Improving dyspnea and Oxygen requirement No chest pain +Appetite No acute events overnight Vitals, medications, blood work and imaging reviewed in the chart NAD. MMM. NCAT. Normal Respiratory Effort. S1S2. ND Abd. No C/C/E. No rash. AAO. Normal speech. Diffuse muscle atrophy. Stage II CEE likely CRS complicated by hypotension Uremia -No NSAIDs -Reduce diuretics -Increase Midodrine Hyponatremia -Continue Bumex Hypokalemia -Continue Spironolactone Metabolic Alkalosis -Continue Diamox Chronic Hypotension -Increase Midodrine Systolic Diastolic CHF, A/C CMP Pulmonary HTN -Continue diuresis A/C Respiratory Failure with hypercapnia & hypoxia -Bipap prn -Continue Oxygen supplementation Anemia in chronic illness Iron Deficiency Thrombocytopenia -Monitor CBC -PRBC prn -Ferrelecit as ordered Hospitalist note reviewed Case reviewed with Dr. Parish
[2024-09-27] MEDS: SOD FERRIC GLUC COMPLX/SUCROSE 125 MG in NA CHLORIDE 0.9% 100 ML IV ONE (11:03)
[2024-09-27] MEDS: ALBUMIN HUMAN 25% 100 ML IV SCH (12:24)
[2024-09-27] MEDS: MIDODRINE HCL 5 MG TABLET PO SCH (13:34)
[2024-09-27] MEDS: TRAZODONE 50 MG TABLET PO ONE (21:18)
[2024-09-28 07:18] LABS: Absolute Basophils 0.1 K/uL (0-0.5); Absolute Lymphocytes (CBC) 0.3 K/uL (0.7-4.9); Absolute Monocytes 0.3 K/uL (0.1-1.3); Absolute Neutrophil 4.1 K/uL (1.8-8.0); Basophils % 1.1 % (0-1.3); Eosinophils % 0.7 % (0-4.4); Hematocrit 24.5 % (39.6-49.0); Hemoglobin 7.8 g/dL (13.6-17.9); Lymphocytes % 5.9 % (15.3-44.8); MCH 29.1 pg (27.0-35.0); MCHC 31.8 g/dL (32.0-36.0); MCV 91.5 fL (80-100); MPV 9.4 fL (7.6-11.3); Monocytes % 6.7 % (3.3-12.3); Neutrophils % 85.6 % (41.7-73.7); Platelets 107 thou/uL (152-406); RBC Red Blood Cell Count 2.68 M/uL (4.33-5.43); Red Cell Distribution Width 19.6 % (12.1-15.2)
[2024-09-28 07:39] LABS: Uric Acid 5.9 mg/dL (3.5-7.2)
[2024-09-28] MEDS: SOD FERRIC GLUC COMPLX/SUCROSE 125 MG in NA CHLORIDE 0.9% 100 ML IV ONE (08:06)
[2024-09-28] MEDS: BUMETANIDE 1 MG TABLET PO SCH (08:34)
[2024-09-28] MEDS: SPIRONOLACTONE 25 MG TABLET PO SCH (08:34)
[2024-09-28 09:31] LABS: Anisocytosis 1+; Basophilic Stippling 1+; Blood Morphology Comment NOTED (NOT SEEN); Hypochromasia 1+; Ovalocytes 1+; Platelet Estimate DECR; Toxic Granulation NOTED; White Blood Cell Scan OK (OK)
[2024-09-28] MEDS: LORazepam 2 MG/ML VIAL IV PRN (18:30)
[2024-09-28] MEDS: FENTANYL 25 MCG/PATCH TD ONE (18:30)
[2024-09-29] MEDS: SOD FERRIC GLUC COMPLX/SUCROSE 125 MG in NA CHLORIDE 0.9% 100 ML IV ONE (09:27)
--- NOTE | 2024-09-29 21:16 | P.PN ---
Date of Service: 09/29/24 Vital Signs Temp Pulse Resp BP Pulse Ox 98.4 F 87 18 101/59 L 91 09/29/24 16:00 09/29/24 16:00 09/29/24 20:30 09/29/24 16:00 09/29/24 20:30 Medications Acetaminophen (Acetaminophen 325 Mg Tablet) 650 mg PO Q4HP PRN PRN Reason: Pain scale 2-4 (Mild) Last Admin: 09/26/24 22:40 Dose: 650 mg Albuterol Sulfate (Albuterol 2.5 Mg/3 Ml Neb Ingrid) 2.5 mg NEB Q6HP PRN PRN Reason: SHORTNESS OF BREATH Last Admin: 09/23/24 00:46 Dose: 2.5 mg Apixaban (Apixaban 2.5 Mg Tablet) 2.5 mg PO BID [facility] Last Admin: 09/29/24 20:34 Dose: 2.5 mg Arformoterol Tartrate (Arformoterol Tartrate 15 Mcg/2 Ml Vial.Neb) 15 mcg NEB BIDRESP [facility] Last Admin: 09/29/24 07:00 Dose: Not Given Benzonatate (Benzonatate 100 Mg Cap) 100 mg PO TID [facility] Last Admin: 09/29/24 20:34 Dose: 100 mg Bisacodyl (Bisacodyl 10 Mg Rectal Supp) 10 mg [place] DAILY PRN PRN Reason: CONSTIPATION Bumetanide (Bumetanide 1 Mg Tablet) 1 mg PO DAILY [facility] Last Admin: 09/29/24 08:02 Dose: 1 mg Calcium Carbonate/Glycine (Calcium Carbonate Chew 500mg Tab) 500 mg PO TIDWMHS PRN PRN Reason: INDIGESTION Docusate Sodium (Docusate Na 100 Mg Cap) 100 mg PO BID [facility] Last Admin: 09/29/24 20:34 Dose: 100 mg Fentanyl Citrate (Fentanyl Citr 100 Mcg/2 Ml) 25 mcg IV Q4H PRN PRN Reason: Pain scale 8-10 (Severe) Last Admin: 09/29/24 20:30 Dose: 25 mcg Ipratropium [place] (Ipratropium Brom 0.5mg/2.5ml) 0.5 mg NEB [id number] [facility] Last Admin: 09/29/24 13:27 Dose: 0.5 mg Levofloxacin (Levofloxacin 750 Mg Tab) 750 mg PO Q48H [facility]; Protocol Last Admin: 09/28/24 08:35 Dose: 750 mg Lorazepam (Lorazepam 2 Mg/Ml Vial) 0.5 mg IV Q12H PRN PRN Reason: DELIRIUM Last Admin: 09/28/24 18:30 Dose: 0.5 mg Magnesium Oxide (Magnesium Oxide 400 Mg Tab) 400 mg PO DAILY [facility] Last Admin: 09/29/24 08:04 Dose: 400 mg Metoprolol Succinate (Metoprolol Xl 25 Mg Tab) 12.5 mg PO [id number] [facility] Last Admin: 09/29/24 06:00 Dose: Not Given Midodrine (Midodrine Hcl 5 Mg Tablet) 10 mg PO TID [facility] Last Admin: 09/29/24 20:34 Dose: 10 mg Multivitamins/Iron (Fe Sulf/Fa/Vit B Comp & C Tab) 1 tab PO DAILY WITH BREAKFAST [facility] Last Admin: 09/29/24 08:02 Dose: 1 tab Nicotine (Nicotine 21 Mg/Pat) 21 mg TD DAILY [facility] Last Admin: 09/29/24 08:04 Dose: 21 mg Nutritional Formula (Ensure Enlive 237 Ml Can) 237 ml PO TID [facility] Last Admin: 09/29/24 20:34 Dose: 237 ml Ondansetron HCl (Ondansetron 4 Mg/2 Ml Vial) 4 mg IV Q6HP PRN PRN Reason: NAUSEA / VOMITING Last Admin: 09/25/24 16:40 Dose: 4 mg Polyethylene Glycol (Polyethyl Gly 3350 17 Gm/Dose) 17 gm PO DAILY [facility] Last Admin: 09/29/24 08:04 Dose: 17 gm Sodium Chloride (Sodium Chloride 0.9% 10ml Inj) 10 ml IV UD PRN PRN Reason: Diluant Spironolactone (Spironolactone 25 Mg Tablet) 25 mg PO DAILY [facility] Last Admin: 09/29/24 08:03 Dose: Not Given Thiamine HCl (Thiamine Hcl 100 Mg Tablet) 200 mg PO DAILY [facility] Last Admin: 09/29/24 08:04 Dose: 200 mg Microbiology Results 09/04/24 18:49 Blood - Blood Aerobic Blood Culture - Final No growth in 5 days. 09/04/24 18:49 Blood - Blood Anaerobic Blood Culture - Final No growth in 5 days. 09/04/24 19:11 Blood - Blood Aerobic Blood Culture - Final No growth in 5 days. 09/04/24 19:11 Blood - Blood Anaerobic Blood Culture - Final No growth in 5 days. 09/04/24 19:00 Nasopharnyx Influenza Type A Antigen Screen - Final 09/04/24 19:00 Nasopharnyx Influenza Type B Antigen Screen - Final Assessment/ Plan: Nephrology Weakness and fatigue No chest pain +Appetite No acute events overnight Vitals, medications, blood work and imaging reviewed in the chart NAD. MMM. NCAT. Normal Respiratory Effort. S1S2. ND Abd. No C/C/E. No rash. AAO. Normal speech. Diffuse muscle atrophy. Stage II CEE likely CRS complicated by hypotension Uremia -No NSAIDs -Continue diuretics -Continue Midodrine Hyponatremia -Continue Bumex Hypokalemia -Continue Spironolactone Metabolic Alkalosis -Continue Diamox Chronic Hypotension -Continue Midodrine Systolic Diastolic CHF, A/C CMP Pulmonary HTN -Continue diuresis A/C Respiratory Failure with hypercapnia & hypoxia -Bipap prn -Continue Oxygen supplementation Anemia in chronic illness Iron Deficiency Thrombocytopenia -Monitor CBC -PRBC prn -Ferrelecit as ordered Hospitalist note reviewed
[2024-09-30 06:41] LABS: Magnesium 2.8 mg/dL (1.6-2.4); Phosphorus 2.5 mg/dL (2.5-4.9); Potassium 3.6 mEq/L (3.5-5.1)
[2024-09-30] MEDS: BISACODYL 10 MG RECTAL SUPP PR PRN (09:02)
--- NOTE | 2024-10-01 01:33 | P.PN ---
Date of Service: 09/25/24 Subjective Continues to wait for LTAC placement. Continue with oxygen weaning at this time. Physical therapy is working with paper as well. Physical Examination - Vital Signs Reviewed - Physical Exam General: Alert, In no apparent distress, Cachectic, Disheveled, Remains on high-flow oxygen. Respiratory: Diminished, Expiratory wheezes Cardiovascular: Regular rate/rhythm, Normal S1 S2, Systolic murmur Gastrointestinal: Hypoactive, Soft and benign, Non-distended, No tenderness, Scaphoid abdomen; varicosities on the abdominal wall Neurological: generalized weakness; decreased strength. Assessment & Plan - Problems (Diagnosis) (1) Acute and chronic respiratory failure with hypercapnia Current Visit: Yes Status: Acute (2) Atrial fibrillation Current Visit: Yes Status: Acute (3) Chronic combined systolic (congestive) and diastolic (congestive) heart failure Current Visit: Yes Status: Acute (4) CVA (cerebral vascular accident)/Vascular dementia Onset Date: 03/14/18 Current Visit: No Status: Acute (5) Depression Current Visit: No Status: Acute Depression Type: major depressive disorder (6) Pulmonary hypertension Current Visit: No Status: Acute (7) Bicytopenia Current Visit: Yes Status: Resolved (8) CEE (acute kidney injury) Current Visit: Yes Status: Acute (9) Uremia Current Visit: Yes Status: Acute - Plan Continue with plan of care as mentioned below: 1. Patient with acute on chronic hypercapnic respiratory failure secondary to COPD exacerbation and heart failure with reduced ejection fraction and valvular disease. Continue diuretics, and continue with nebs, steroids, and will continue with antibiotics. Continue with antibiotic therapy. Will monitor with serial x-rays. Continue with weaning down FiO2. Patient is on 55% FiO2. 2. Heart failure with reduced ejection fraction; echocardiogram with an ejection fraction of 10 to 15%. Patient with a defibrillator placed. Patient also with diastolic dysfunction with elevated filling pressures. Patient with severe mitral regurgitation; cardiology consultation appreciated. Patient on diuretics. Will monitor volume status and may need to add additional Lasix doses. Appreciate cardiology and nephrology consultation. However, prognosis is poor. 3. Patient with cardiorenal syndrome; patient with Renal function has stabilized. Continue diuresing and continue monitoring renal function closely. 4. Severe pulmonary hypertension with elevated right atrial pressures; will benefit from sildenafil. Plan to discuss with Pulmonary. 5. Severe malnutrition; Nutrition improved. Continue monitoring nutritional status. Continue ensures with meals. 6. Bicytopenia; Hemoglobin & platelet count is stable. Monitor H&H and platelet count. Discharge Plan: Other Plan to discharge in: Greater than 2 days
--- NOTE | 2024-10-01 01:34 | P.PN ---
Date of Service: 09/26/24 Subjective Oxygenation has improved. Remains on 50% FiO2. Continue to wean down. Spoke with insurance and they have denied patient's LTAC stay. Appeal is pending. Physical Examination - Vital Signs Reviewed - Physical Exam General: Alert, In no apparent distress, Cachectic, Disheveled, Remains on high-flow oxygen. Respiratory: Diminished, Expiratory wheezes Cardiovascular: Regular rate/rhythm, Normal S1 S2, Systolic murmur Gastrointestinal: Hypoactive, Soft and benign, Non-distended, No tenderness, Scaphoid abdomen; varicosities on the abdominal wall Neurological: generalized weakness; decreased strength. Assessment & Plan - Problems (Diagnosis) (1) Acute and chronic respiratory failure with hypercapnia Current Visit: Yes Status: Acute (2) Atrial fibrillation Current Visit: Yes Status: Acute (3) Chronic combined systolic (congestive) and diastolic (congestive) heart failure Current Visit: Yes Status: Acute (4) CVA (cerebral vascular accident)/Vascular dementia Onset Date: 03/14/18 Current Visit: No Status: Acute (5) Depression Current Visit: No Status: Acute Depression Type: major depressive disorder (6) Pulmonary hypertension Current Visit: No Status: Acute (7) Bicytopenia Current Visit: Yes Status: Resolved (8) CEE (acute kidney injury) Current Visit: Yes Status: Acute (9) Uremia Current Visit: Yes Status: Acute - Plan Continue with plan of care as mentioned below: 1. Patient with acute on chronic hypercapnic respiratory failure secondary to COPD exacerbation and heart failure with reduced ejection fraction and valvular disease. Continue diuretics, and continue with nebs, steroids, and will continue with antibiotics. Continue with plan of care as mentioned below. Continue with decreasing oxygenation slowly. 2. Heart failure with reduced ejection fraction; echocardiogram with an ejection fraction of 10 to 15%. Patient with a defibrillator placed. Patient also with diastolic dysfunction with elevated filling pressures. Patient with severe mitral regurgitation; cardiology consultation appreciated. Patient on diuretics. Will monitor volume status and may need to add additional Lasix doses. Appreciate cardiology and nephrology consultation. However, prognosis is poor. 3. Patient with cardiorenal syndrome; patient with Renal function has stabilized. Continue diuresing and continue monitoring renal function closely. 4. Severe pulmonary hypertension with elevated right atrial pressures; will benefit from sildenafil. Plan to discuss with Pulmonary. 5. Severe malnutrition; Nutrition improved. Continue monitoring nutritional status. Continue ensures with meals. 6. Bicytopenia; Hemoglobin & platelet count is stable. Monitor H&H and platelet count. Discharge Plan: Other Plan to discharge in: Greater than 2 days
--- NOTE | 2024-10-01 01:36 | P.PN ---
Date of Service: 09/27/24 Subjective patient is currently doing well. Wean down oxygen to 4 L. maintaining oxygenation well. Continue with nebs, steroids, and antibiotics. Will encourage nurses and physical therapy to get patient out of bed to start more aggressive physical therapy. Continue with nutritional support as recommended. Physical Examination - Vital Signs Reviewed - Physical Exam General: Alert, In no apparent distress, Cachectic, Disheveled, currently on 2 L oxygen Respiratory: End-expiratory wheezing but otherwise clear Cardiovascular: Regular rate/rhythm, Normal S1 S2, Systolic murmur Gastrointestinal: Hypoactive, Soft and benign, Non-distended, No tenderness, Scaphoid abdomen; varicosities on the abdominal wall Neurological: generalized weakness; decreased strength. Assessment & Plan - Problems (Diagnosis) (1) Acute and chronic respiratory failure with hypercapnia Current Visit: Yes Status: Acute (2) Atrial fibrillation Current Visit: Yes Status: Acute (3) Chronic combined systolic (congestive) and diastolic (congestive) heart failure Current Visit: Yes Status: Acute (4) CVA (cerebral vascular accident)/Vascular dementia Onset Date: 03/14/18 Current Visit: No Status: Acute (5) Depression Current Visit: No Status: Acute Depression Type: major depressive disorder (6) Pulmonary hypertension Current Visit: No Status: Acute (7) Bicytopenia Current Visit: Yes Status: Resolved (8) CEE (acute kidney injury) Current Visit: Yes Status: Acute (9) Uremia Current Visit: Yes Status: Acute - Plan Continue with plan of care as mentioned below: 1. Patient with acute on chronic hypercapnic respiratory failure secondary to COPD exacerbation and heart failure with reduced ejection fraction and valvular disease. Continue diuretics, and continue with nebs, steroids, and will continue with antibiotics. Continue with plan of care as mentioned below. currently on 4 L of oxygen and doing really well. Increasing physical therapy and nutritional support as recommended. 2. Heart failure with reduced ejection fraction; echocardiogram with an ejection fraction of 10 to 15%. Patient with a defibrillator placed. Patient also with diastolic dysfunction with elevated filling pressures. Patient with severe mitral regurgitation; cardiology consultation appreciated. Patient on diuretics. Will monitor volume status and may need to add additional Lasix doses. Appreciate cardiology and nephrology consultation. However, prognosis is poor. 3. Patient with cardiorenal syndrome; patient with Renal function has stabilized. Continue diuresing and continue monitoring renal function closely. 4. Severe pulmonary hypertension with elevated right atrial pressures; will benefit from sildenafil. Plan to discuss with Pulmonary. 5. Severe malnutrition; Nutrition improved. Continue monitoring nutritional status. Continue ensures with meals. 6. Bicytopenia; Hemoglobin & platelet count is stable. Monitor H&H and platelet count. Discharge Plan: Other Plan to discharge in: Greater than 2 days
--- NOTE | 2024-10-01 01:38 | P.PN ---
Date of Service: 09/28/24 Subjective Patient got out of bed with physical therapy. Patient overall is doing much better. Patient denies any new complaints. Physical Examination - Vital Signs Reviewed - Physical Exam General: Alert, In no apparent distress, Cachectic, Disheveled, currently on 2 L oxygen Respiratory: End-expiratory wheezing but otherwise clear Cardiovascular: Regular rate/rhythm, Normal S1 S2, Systolic murmur Gastrointestinal: Hypoactive, Soft and benign, Non-distended, No tenderness, Scaphoid abdomen; varicosities on the abdominal wall Neurological: generalized weakness; decreased strength. Assessment & Plan - Problems (Diagnosis) (1) Acute and chronic respiratory failure with hypercapnia Current Visit: Yes Status: Acute (2) Atrial fibrillation Current Visit: Yes Status: Acute (3) Chronic combined systolic (congestive) and diastolic (congestive) heart failure Current Visit: Yes Status: Acute (4) CVA (cerebral vascular accident)/Vascular dementia Onset Date: 03/14/18 Current Visit: No Status: Acute (5) Depression Current Visit: No Status: Acute Depression Type: major depressive disorder (6) Pulmonary hypertension Current Visit: No Status: Acute (7) Bicytopenia Current Visit: Yes Status: Resolved (8) CEE (acute kidney injury) Current Visit: Yes Status: Acute (9) Uremia Current Visit: Yes Status: Acute - Plan Continue with plan of care as mentioned below: 1. Patient with acute on chronic hypercapnic respiratory failure secondary to COPD exacerbation and heart failure with reduced ejection fraction and valvular disease. Continue diuretics, and continue with nebs, steroids, and will continue with antibiotics. Continue with plan of care as mentioned below. currently on 4 L of oxygen and doing really well. Increasing physical therapy and nutritional support as recommended. Patient's oxygenation is stable. 2. Heart failure with reduced ejection fraction; echocardiogram with an ejection fraction of 10 to 15%. Patient with a defibrillator placed. Patient also with diastolic dysfunction with elevated filling pressures. Patient with severe mitral regurgitation; cardiology consultation appreciated. Patient on diuretics. Will monitor volume status and may need to add additional Lasix doses. Appreciate cardiology and nephrology consultation. However, prognosis is poor. 3. Patient with cardiorenal syndrome; patient with Renal function has stabilized. Continue diuresing and continue monitoring renal function closely. 4. Severe pulmonary hypertension with elevated right atrial pressures; will benefit from sildenafil. Plan to discuss with Pulmonary. 5. Severe malnutrition; Nutrition improved. Continue monitoring nutritional status. Continue ensures with meals. 6. Bicytopenia; Hemoglobin & platelet count is stable. Monitor H&H and platelet count. Discharge Plan: Other Plan to discharge in: Greater than 2 days
--- NOTE | 2024-10-01 01:39 | P.PN ---
Date of Service: 09/29/24 Subjective Increase nutritional intake. Continue with physical therapy. Physical Examination - Vital Signs Reviewed - Physical Exam General: Alert, In no apparent distress, Cachectic, Disheveled, currently on 2 L oxygen Respiratory: End-expiratory wheezing but otherwise clear Cardiovascular: Regular rate/rhythm, Normal S1 S2, Systolic murmur Gastrointestinal: Hypoactive, Soft and benign, Non-distended, No tenderness, Scaphoid abdomen; varicosities on the abdominal wall Neurological: generalized weakness; decreased strength. Assessment & Plan - Problems (Diagnosis) (1) Acute and chronic respiratory failure with hypercapnia Current Visit: Yes Status: Acute (2) Atrial fibrillation Current Visit: Yes Status: Acute (3) Chronic combined systolic (congestive) and diastolic (congestive) heart failure Current Visit: Yes Status: Acute (4) CVA (cerebral vascular accident)/Vascular dementia Onset Date: 03/14/18 Current Visit: No Status: Acute (5) Depression Current Visit: No Status: Acute Depression Type: major depressive disorder (6) Pulmonary hypertension Current Visit: No Status: Acute (7) Bicytopenia Current Visit: Yes Status: Resolved (8) CEE (acute kidney injury) Current Visit: Yes Status: Acute (9) Uremia Current Visit: Yes Status: Acute - Plan Continue with plan of care as mentioned below: 1. Patient with acute on chronic hypercapnic respiratory failure secondary to COPD exacerbation and heart failure with reduced ejection fraction and valvular disease. Continue diuretics, and continue with nebs, steroids, and will seema nue with antibiotics. Continue with plan of care as mentioned below. currently on 4 L of oxygen and doing really well. Increasing physical therapy and nutritional support as recommended. Patient's oxygenation is stable. 2. Heart failure with reduced ejection fraction; echocardiogram with an ejection fraction of 10 to 15%. Patient with a defibrillator placed. Patient also with diastolic dysfunction with elevated filling pressures. Patient with severe mitral regurgitation; cardiology consultation appreciated. Patient on diuretics. Will monitor volume status and may need to add additional Lasix doses. Appreciate cardiology and nephrology consultation. However, prognosis is poor. 3. Patient with cardiorenal syndrome; patient with Renal function has stabilized. Continue diuresing and continue monitoring renal function closely. 4. Severe pulmonary hypertension with elevated right atrial pressures; will benefit from sildenafil. Plan to discuss with Pulmonary. 5. Severe malnutrition; Nutrition improved. Continue monitoring nutritional status. Continue ensures with meals. 6. Bicytopenia; Hemoglobin & platelet count is stable. Monitor H&H and platelet count. Discharge Plan: Other Plan to discharge in: Greater than 2 days
--- NOTE | 2024-10-01 01:41 | P.PN ---
Date of Service: 10/01/24 Subjective Patient is slowly improving. They were working on LTAC placement. However, patient was denied LTAC, and we are working on fdc facility placement at [facility].Patient was actually able to stand up from bed with a walker today. He is working on ambulating at this time. Physical Examination - Vital Signs Reviewed - Physical Exam General: Alert, In no apparent distress, Cachectic, Disheveled, currently on 2 L oxygen Respiratory: End-expiratory wheezing but otherwise clear Cardiovascular: Regular rate/rhythm, Normal S1 S2, Systolic murmur Gastrointestinal: Hypoactive, Soft and benign, Non-distended, No tenderness, Scaphoid abdomen; varicosities on the abdominal wall Neurological: generalized weakness; decreased strength. Assessment & Plan - Problems (Diagnosis) (1) Acute and chronic respiratory failure with hypercapnia Current Visit: Yes Status: Acute (2) Atrial fibrillation Current Visit: Yes Status: Acute (3) Chronic combined systolic (congestive) and diastolic (congestive) heart failure Current Visit: Yes Status: Acute (4) CVA (cerebral vascular accident)/Vascular dementia Onset Date: 03/14/18 Current Visit: No Status: Acute (5) Depression Current Visit: No Status: Acute Depression Type: major depressive disorder (6) Pulmonary hypertension Current Visit: No Status: Acute (7) Bicytopenia Current Visit: Yes Status: Resolved (8) CEE (acute kidney injury) Current Visit: Yes Status: Acute (9) Uremia Current Visit: Yes Status: Acute - Plan Continue with plan of care as mentioned below: 1. Patient with acute on chronic hypercapnic respiratory failure secondary to COPD exacerbation and heart failure with reduced ejection fraction and valvular disease. Continue diuretics, and continue with nebs, steroids, and will continue with antibiotics. Continue with plan of care as mentioned below. Currently on 4 L of oxygen and doing really well. Increasing physical therapy and nutritional support as recommended. Patient's oxygenation is stable. Patient was able to start standing at the side of the bed and is working on trying to ambulate a few steps with therapy. Anticipate this happening over the next few days. 2. Heart failure with reduced ejection fraction; echocardiogram with an ejection fraction of 10 to 15%. Patient with a defibrillator placed. Patient also with diastolic dysfunction with elevated filling pressures. Patient with severe mitral regurgitation; cardiology consultation appreciated. Patient on diuretics. Will monitor volume status and may need to add additional Lasix doses. Appreciate cardiology and nephrology consultation. However, prognosis is poor. 3. Patient with cardiorenal syndrome; patient's renal function has stabilized. Heart failure appears to be compensated much better. Continue diuresing and continue monitoring renal function closely. 4. Severe pulmonary hypertension with elevated right atrial pressures; will benefit from sildenafil. Plan to discuss with Pulmonary. 5. Severe malnutrition; Nutrition improved. Continue monitoring nutritional status. Continue ensures with meals. 6. Bicytopenia; Hemoglobin & platelet count is stable. Monitor H&H and platelet count. Discharge Plan: Other Plan to discharge in: Greater than 2 days
--- NOTE | 2024-10-01 01:41 | P.PN ---
Date of Service: 09/30/24 Subjective Patient is clinically doing much better. Continues to increase nutritional intake. Continues with physical therapy. Encouraging patient to get out of bed. Arranging for discharge planning. May be able to go would like halfway. Plan to work with physical therapy. [facility]. Physical Examination - Vital Signs Reviewed - Physical Exam General: Alert, In no apparent distress, Cachectic, Disheveled, currently on 2 L oxygen Respiratory: End-expiratory wheezing but otherwise clear Cardiovascular: Regular rate/rhythm, Normal S1 S2, Systolic murmur Gastrointestinal: Hypoactive, Soft and benign, Non-distended, No tenderness, Scaphoid abdomen; varicosities on the abdominal wall Neurological: generalized weakness; decreased strength. Assessment & Plan - Problems (Diagnosis) (1) Acute and chronic respiratory failure with hypercapnia Current Visit: Yes Status: Acute (2) Atrial fibrillation Current Visit: Yes Status: Acute (3) Chronic combined systolic (congestive) and diastolic (congestive) heart failure Current Visit: Yes Status: Acute (4) CVA (cerebral vascular accident)/Vascular dementia Onset Date: 03/14/18 Current Visit: No Status: Acute (5) Depression Current Visit: No Status: Acute Depression Type: major depressive disorder (6) Pulmonary hypertension Current Visit: No Status: Acute (7) Bicytopenia Current Visit: Yes Status: Resolved (8) CEE (acute kidney injury) Current Visit: Yes Status: Acute (9) Uremia Current Visit: Yes Status: Acute - Plan Continue with plan of care as mentioned below: 1. Patient with acute on chronic hypercapnic respiratory failure secondary to COPD exacerbation and heart failure with reduced ejection fraction and valvular disease. Continue diuretics, and continue with nebs, steroids, and will continue with antibiotics. Continue with plan of care as mentioned below. currently on 4 L of oxygen and doing really well. Increasing physical therapy and nutritional support as recommended. Patient's oxygenation is stable. 2. Heart failure with reduced ejection fraction; echocardiogram with an ejection fraction of 10 to 15%. Patient with a defibrillator placed. Patient also with diastolic dysfunction with elevated filling pressures. Patient with severe mitral regurgitation; cardiology consultation appreciated. Patient on diuretics. Will monitor volume status and may need to add additional Lasix doses. Appreciate cardiology and nephrology consultation. However, prognosis is poor. 3. Patient with cardiorenal syndrome; patient with Renal function has stabilized. Continue diuresing and continue monitoring renal function closely. 4. Severe pulmonary hypertension with elevated right atrial pressures; will benefit from sildenafil. Plan to discuss with Pulmonary. 5. Severe malnutrition; Nutrition improved. Continue monitoring nutritional status. Continue ensures with meals. 6. Bicytopenia; Hemoglobin & platelet count is stable. Monitor H&H and platelet count. Discharge Plan: Other Plan to discharge in: Greater than 2 days
[2024-10-01 06:04] LABS: Absolute Eosinophils 0.1 K/uL (0-0.5); Absolute Lymphocytes (CBC) 0.7 K/uL (0.7-4.9); Absolute Monocytes 0.2 K/uL (0.1-1.3); Absolute Neutrophil 3.1 K/uL (1.8-8.0); Basophils % 0.7 % (0-1.3); Eosinophils % 1.5 % (0-4.4); Hematocrit 24.9 % (39.6-49.0); Hemoglobin 8.2 g/dL (13.6-17.9); Lymphocytes % 17.8 % (15.3-44.8); MCH 30.2 pg (27.0-35.0); MCHC 33.1 g/dL (32.0-36.0); Monocytes % 5.9 % (3.3-12.3); Neutrophils % 74.1 % (41.7-73.7); Platelets 110 thou/uL (152-406); RBC Red Blood Cell Count 2.73 M/uL (4.33-5.43); Red Cell Distribution Width 20.7 % (12.1-15.2)
[2024-10-01 06:06] LABS: Albumin 2.8 g/dL (3.4-5.0); Anion Gap 8.6 mEq/L (5.0-15.0); Phosphorus 2.7 mg/dL (2.5-4.9); Potassium 3.6 mEq/L (3.5-5.1); Uric Acid 6.6 mg/dL (3.5-7.2)
--- NOTE | 2024-10-01 07:22 | RAD REPORT ---
Procedure: Chest Single View HISTORY: Cough COMPARISON: September 21, 2024 FINDINGS: Extensive bilateral pulmonary opacities are unchanged. Small pleural effusions. Pacemaker leads in place. Venous catheter with its tip in the right axillary vein. The heart is mildly enlarged.. IMPRESSION: No significant change in extensive bilateral pulmonary opacities
[2024-10-01] MEDS: POTASSIUM CL SA 10 MEQ TAB PO ONE ×2 (08:44→15:11)
[2024-10-01] MEDS: DRISDOL (VITAMIN D=ERGOCALCIFEROL) 50000 UNIT CAP PO SCH (11:39)
--- NOTE | 2024-10-01 19:51 | P.PN ---
Date of Service: 10/01/24 Vital Signs Temp Pulse Resp BP Pulse Ox 97.8 F 90 16 104/62 97 10/01/24 16:00 10/01/24 16:00 10/01/24 16:00 10/01/24 16:00 10/01/24 16:00 Medications Acetaminophen (Acetaminophen 325 Mg Tablet) 650 mg PO Q4HP PRN PRN Reason: Pain scale 2-4 (Mild) Last Admin: 10/01/24 08:43 Dose: 650 mg Albuterol Sulfate (Albuterol 2.5 Mg/3 Ml Neb Ingrid) 2.5 mg NEB Q6HP PRN PRN Reason: SHORTNESS OF BREATH Last Admin: 09/23/24 00:46 Dose: 2.5 mg Apixaban (Apixaban 2.5 Mg Tablet) 2.5 mg PO BID [facility] Last Admin: 10/01/24 08:44 Dose: 2.5 mg Arformoterol Tartrate (Arformoterol Tartrate 15 Mcg/2 Ml Vial.Neb) 15 mcg NEB BIDRESP [facility] Last Admin: 10/01/24 08:21 Dose: 15 mcg Benzonatate (Benzonatate 100 Mg Cap) 100 mg PO TID [facility] Last Admin: 10/01/24 15:11 Dose: 100 mg Bisacodyl (Bisacodyl 10 Mg Rectal Supp) 10 mg FL DAILY PRN PRN Reason: CONSTIPATION Last Admin: 09/30/24 09:02 Dose: 10 mg Bumetanide (Bumetanide 1 Mg Tablet) 1 mg PO DAILY [facility] Last Admin: 10/01/24 08:44 Dose: 1 mg Calcium Carbonate/Glycine (Calcium Carbonate Chew 500mg Tab) 500 mg PO TIDWMHS PRN PRN Reason: INDIGESTION Docusate Sodium (Docusate Na 100 Mg Cap) 100 mg PO BID [facility] Last Admin: 10/01/24 08:44 Dose: 100 mg Ergocalciferol (Drisdol (Vitamin D=Ergocalciferol) 56870 Unit Cap) 50,000 unit PO Q7D@0900 [facility] Last Admin: 10/01/24 11:39 Dose: 50,000 unit Fentanyl Citrate (Fentanyl Citr 100 Mcg/2 Ml) 25 mcg IV Q4H PRN PRN Reason: Pain scale 8-10 (Severe) Last Admin: 10/01/24 15:11 Dose: 25 mcg Ipratropium [place] (Ipratropium Brom 0.5mg/2.5ml) 0.5 mg NEB [id number] [facility] Last Admin: 10/01/24 13:29 Dose: 0.5 mg Levofloxacin (Levofloxacin 750 Mg Tab) 750 mg PO Q48H [facility]; Protocol Last Admin: 09/30/24 09:08 Dose: 750 mg Lorazepam (Lorazepam 2 Mg/Ml Vial) 0.5 mg IV Q12H PRN PRN Reason: DELIRIUM Last Admin: 10/01/24 11:00 Dose: 0.5 mg Magnesium Oxide (Magnesium Oxide 400 Mg Tab) 400 mg PO DAILY [facility] Last Admin: 10/01/24 08:42 Dose: 400 mg Metoprolol Succinate (Metoprolol Xl 25 Mg Tab) 12.5 mg PO [id number] [facility] Last Admin: 10/01/24 06:00 Dose: Not Given Midodrine (Midodrine Hcl 5 Mg Tablet) 10 mg PO TID [facility] Last Admin: 10/01/24 15:11 Dose: 10 mg Multivitamins/Iron (Fe Sulf/Fa/Vit B Comp & C Tab) 1 tab PO DAILY WITH BREAK FAST [facility] Last Admin: 10/01/24 08:43 Dose: 1 tab Nicotine (Nicotine 21 Mg/Pat) 21 mg TD DAILY [facility] Last Admin: 10/01/24 08:42 Dose: 21 mg Nutritional Formula (Ensure Enlive 237 Ml Can) 237 ml PO TID [facility] Last Admin: 10/01/24 15:12 Dose: 237 ml Ondansetron HCl (Ondansetron 4 Mg/2 Ml Vial) 4 mg IV Q6HP PRN PRN Reason: NAUSEA / VOMITING Last Admin: 09/25/24 16:40 Dose: 4 mg Polyethylene Glycol (Polyethyl Gly 3350 17 Gm/Dose) 17 gm PO DAILY [facility] Last Admin: 10/01/24 08:42 Dose: 17 gm Sodium Chloride (Sodium Chloride 0.9% 10ml Inj) 10 ml IV UD PRN PRN Reason: Diluant Spironolactone (Spironolactone 25 Mg Tablet) 25 mg PO DAILY [facility] Last Admin: 10/01/24 08:43 Dose: 25 mg Thiamine HCl (Thiamine Hcl 100 Mg Tablet) 200 mg PO Q24H [facility] Microbiology Results 09/04/24 18:49 Blood - Blood Aerobic Blood Culture - Final No growth in 5 days. 09/04/24 18:49 Blood - Blood Anaerobic Blood Culture - Final No growth in 5 days. 09/04/24 19:11 Blood - Blood Aerobic Blood Culture - Final No growth in 5 days. 09/04/24 19:11 Blood - Blood Anaerobic Blood Culture - Final No growth in 5 days. 09/04/24 19:00 Nasopharnyx Influenza Type A Antigen Screen - Final 09/04/24 19:00 Nasopharnyx Influenza Type B Antigen Screen - Final Assessment/ Plan: Nephrology Weakness and fatigue No chest pain +Appetite No acute events overnight Vitals, medications, blood work and imaging reviewed in the chart NAD. MMM. NCAT. Normal Respiratory Effort. S1S2. ND Abd. No C/C/E. No rash. AAO. Normal speech. Diffuse muscle atrophy. Stage II CEE likely CRS complicated by hypotension Uremia -No NSAIDs -Continue diuretics -Continue Midodrine Hyponatremia -Continue Bumex Hypokalemia -Continue Spironolactone -Potassium as ordered Metabolic Alkalosis -Continue Diamox Chronic Hypotension -Continue Midodrine Systolic Diastolic CHF, A/C CMP Pulmonary HTN -Continue diuresis A/C Respiratory Failure with hypercapnia & hypoxia -Bipap prn -Continue Oxygen supplementation Anemia in chronic illness Iron Deficiency Thrombocytopenia -Monitor CBC -PRBC prn -Ferrelecit as ordered Hospitalist note reviewed
[2024-10-01] MEDS: SOD FERRIC GLUC COMPLX/SUCROSE 125 MG in NA CHLORIDE 0.9% 100 ML IV ONE (20:24)
[2024-10-02] MEDS ORDERED: FENTANYL CITR 100 MCG/2 ML IV PRN (00:32)
[2024-10-02] MEDS: METHYLPREDNISOLONE 125 MG INJ IV SCH (01:18)
[2024-10-02] MEDS: predniSONE 20 MG TAB PO SCH (08:35)
[2024-10-02] MEDS: THIAMINE HCL 100 MG TABLET PO SCH (13:12)
--- NOTE | 2024-10-02 13:32 | P.DS ---
Admission Date: 09/04/24 Discharge Date: 10/02/24 Disposition: TRANSFER TO HALFWAY Discharge Condition: FAIR Reason for Admission: Acute on chronic respiratory failure Brief History of Present Illness: 64 yrs old Male with past medical history of COPD, CVA, hypertension, hyperlipidemia, CAD, CHF status post pacemaker placement, history of skull fracture who was brought to ER with shortness of breath.The patient has shortness of breath at rest, and nausea with with light activity. According to report, EMS reports found patient on a couch unresponsive, and pulse oxygenation saturation was less than 50%. Patient reports increased shortness of breath prior to the incident. He is on home oxygen. He was assessed in the ER and is admitted for further management of COPD exacerbation. Hospital Course: Diagnosis Acute and chronic respiratory failure with hypercapnia Atrial fibrillation Chronic combined systolic (congestive) and diastolic (congestive) heart failure CVA (cerebral vascular accident)/Vascular dementia Depression Pulmonary hypertension CEE (acute kidney injury) Uremia Severe protein calorie malnutrition Patient admitted to the medical floor nephrology medical problems addressed: 1. Patient with acute on chronic hypercapnic respiratory failure secondary to COPD exacerbation and heart failure with reduced ejection fraction and valvular disease. Patient treated with diuretics, and continue with nebs, steroids, and will continue with antibiotics. He required ICU care and BiPAP initially. His clinical condition improved and patient transferred to the medical floor. He has been tolerating oxygen by nasal cannula well. Initially was very weak but his functional status has been improving and currently able to stand with support and ambulated a few steps with therapy. 2. Heart failure with reduced ejection fraction; echocardiogram with an ejection fraction of 10 to 15%. Patient with a defibrillator placed. Patient also with diastolic dysfunction with elevated filling pressures. Patient with severe mitral regurgitation; he was seen in consultation by cardiology. Patient on diuretics-Bumex. Nephrology also evaluated patient and assisted with management. 3. Patient with cardiorenal syndrome; patient's renal function has stabilized. Heart failure appears to be compensated much better. . 4. Severe pulmonary hypertension with elevated right atrial pressures. 5. Severe malnutrition; nutrition supplemented. Vital Signs/Physical Exam: Temp Pulse Resp BP Pulse Ox 97.8 F 89 18 101/61 94 10/02/24 08:00 10/02/24 08:35 10/02/24 08:00 10/02/24 08:35 10/02/24 08:00 General: Alert, In no apparent distress HEENT: Mucous membr. moist/pink Neck: Supple, JVD not distended Respiratory: Diminished Cardiovascular: Regular rate/rhythm, Normal S1 S2 Gastrointestinal: Soft and benign, Non-distended Musculoskeletal: No swelling Other Physical/Emotional Findings: - Laboratory Data at Discharge: WBC 4.20 thou/uL (4.3-10.9) L 10/01/24 05:46 Hgb 8.2 g/dL (13.6-17.9) L 10/01/24 05:46 Hct 24.9 % (39.6-49.0) L 10/01/24 05:46 Plt Count 110 thou/uL (152-406) L 10/01/24 05:46 PT 14.9 SECONDS (9.4-12.5) H 09/19/24 04:50 INR 1.34 09/19/24 04:50 APTT 23.4 SECONDS (24.3-36.9) L 09/18/24 14:54 Sodium 133 mEq/L (136-145) L 10/01/24 05:46 Potassium 3.6 mEq/L (3.5-5.1) 10/01/24 05:46 BUN 72 mg/dL (7-18) H 10/01/24 05:46 Creatinine 1.08 mg/dL (0.70-1.30) 10/01/24 05:46 Glucose 90 mg/dL (74-106) 10/01/24 05:46 Uric Acid 6.6 mg/dL (3.5-7.2) 10/01/24 05:46 Phosphorus 2.7 mg/dL (2.5-4.9) 10/01/24 05:46 Magnesium 2.8 mg/dL (1.6-2.4) H 09/30/24 05:35 Total Bilirubin 1.6 mg/dL (0.2-1.0) H 09/26/24 06:11 AST < 10 U/L (15-37) L 09/26/24 06:11 ALT 30 U/L (16-61) 09/26/24 06:11 Alkaline Phosphatase 113 U/L (45-117) 09/26/24 06:11 Home Medications: Fluticasone/Umeclidin/Vilanter [Trelegy Ellipta 100-62.5-25] 1 each IH DAILY 30 Days #1 inhaler 09/15/23 Citalopram [Celexa*] 10 mg PO DAILY 30 Days #30 tab 02/07/24 Nicotine [Nicoderm*] 21 mg TD DAILY 42 Days #42 patch 02/07/24 Benzonatate [Tessalon Perle*] 100 mg PO TID PRN #30 cap 03/29/24 Ensure Enlive 237 ml PO BID #30 can 03/29/24 Ipratropium Neb [Atrovent*] 0.5 mg NEB [id number] PRN #120 amp 03/29/24 Thiamine HCl [Vitamin B-1*] 200 mg PO DAILY #60 tab 03/29/24 predniSONE [Deltasone*] 10 mg PO DAILY #5 tab 03/29/24 Acetaminophen [Tylenol*] 650 mg PO Q4HP PRN tab 10/02/24 Albuterol Neb [Proventil 0.083% Neb Soln] 2.5 mg NEB Q6HP PRN amp 10/02/24 Apixaban [Eliquis *] 2.5 mg PO BID 10/02/24 Bisacodyl [Dulcolax*] 10 mg [place] DAILY PRN supp 10/02/24 Bumetanide [Bumex*] 1 mg PO DAILY tab 10/02/24 Calcium Carbonate [Tums Regular*] 500 mg PO TIDWMHS PRN tab 10/02/24 Docusate [Colace Cap*] 100 mg PO BID cap 10/02/24 Iron/FA/Vit B-Com W/C [Hemocyte Plus*] 1 tab PO DAILY WITH BREAKFAST tab 10/02/24 Magnesium Oxide [Mag 0X*] 400 mg PO DAILY tab 10/02/24 Metoprolol Succinate [Toprol Xl*] 12.5 mg PO [id number] tab 10/02/24 Midodrine HCl [Proamatine*] 10 mg PO TID tab 10/02/24 Polyethyl Gly 3350 [Glycolax*] 17 gm PO DAILY udbot 10/02/24 Spironolactone [Aldactone*] 25 mg PO DAILY tab 10/02/24 Vitamin D [Drisdol*] 50,000 unit PO Q7D@0900 cap 10/02/24 Diet: AHA Activity: Fall precautions Followup: NONE,NONE [Primary Care Provider] - 1-2 Weeks Time spent managing pt's care (in minutes): 40
[2024-10-02 15:05] VITALS: BP 101/65
[2024-10-02 15:07] VITALS: O2SAT 89
[2024-10-02 15:13] VITALS: TEMP 97.6
[2024-10-02 15:54] VITALS: BMI 15.2
--- NOTE | 2024-10-02 20:25 | P.PN ---
Date of Service: 10/02/24 Vital Signs Temp Pulse Resp BP Pulse Ox 97.6 F 90 18 101/65 91 10/02/24 12:00 10/02/24 12:00 10/02/24 12:00 10/02/24 12:00 10/02/24 12:00 Microbiology Results 09/04/24 18:49 Blood - Blood Aerobic Blood Culture - Final No growth in 5 days. 09/04/24 18:49 Blood - Blood Anaerobic Blood Culture - Final No growth in 5 days. 09/04/24 19:11 Blood - Blood Aerobic Blood Culture - Final No growth in 5 days. 09/04/24 19:11 Blood - Blood Anaerobic Blood Culture - Final No growth in 5 days. 09/04/24 19:00 Nasopharnyx Influenza Type A Antigen Screen - Final 09/04/24 19:00 Nasopharnyx Influenza Type B Antigen Screen - Final Assessment/ Plan: Nephrology Weakness and fatigue No chest pain +Appetite No acute events overnight Vitals, medications, blood work and imaging reviewed in the chart NAD. MMM. NCAT. Normal Respiratory Effort. S1S2. ND Abd. No C/C/E. No rash. AAO. Normal speech. Diffuse muscle atrophy. Stage II CEE likely CRS complicated by hypotension Uremia -No NSAIDs -Continue diuretics -Continue Midodrine Hyponatremia -Continue Bumex Hypokalemia -Continue Spironolactone -Potassium prn Metabolic Alkalosis -Continue Diamox Chronic Hypotension -Continue Midodrine Systolic Diastolic CHF, A/C CMP Pulmonary HTN -Continue diuresis A/C Respiratory Failure with hypercapnia & hypoxia -Bipap prn -Continue Oxygen supplementation Anemia in chronic illness Iron Deficiency Thrombocytopenia -Monitor CBC -PRBC prn -Ferrelecit prn Hospitalist note reviewed
== END 2024-10-02 14:35 | DRG 190 ==
LOC: ER 18:22 → ERHOLD 19:57 → 4TH 09-05 07:48 → ERHOLD 09-05 07:48 → 3RD-ICU 09-05 13:18 → 4TH 09-22 23:50
PROVIDERS: ADMIT Family Medicine; ATTEND Internal Medicine
PROC: 4A033R1 Measurement of Arterial Saturation, Peripheral, Percutaneous Approach (ICD-10-PCS; principal; 2024-09-04)
PROC: 5A09557 Assistance with Respiratory Ventilation, Greater than 96 Consecutive Hours, Continuous Positive Airway Pressure (ICD-10-PCS; 2024-09-04)
PROC: 0T9B70Z Drainage of Bladder with Drainage Device, Via Natural or Artificial Opening (ICD-10-PCS; 2024-09-05)
PROC: 5A0955A Assistance with Respiratory Ventilation, Greater than 96 Consecutive Hours, High Flow/Velocity Cannula (ICD-10-PCS; 2024-09-09)
PROC: 02HV33Z Insertion of Infusion Device into Superior Vena Cava, Percutaneous Approach (ICD-10-PCS; 2024-09-09)
PROC: 30233N1 Transfusion of Nonautologous Red Blood Cells into Peripheral Vein, Percutaneous Approach (ICD-10-PCS; 2024-09-11)
DX: J44.1 Chronic obstructive pulmonary disease with (acute) exacerbation (principal); E43 Unspecified severe protein-calorie malnutrition; I21.A1 Myocardial infarction type 2; J96.21 Acute and chronic respiratory failure with hypoxia; J96.22 Acute and chronic respiratory failure with hypercapnia; J18.9 Pneumonia, unspecified organism; I50.43 Acute on chronic combined systolic (congestive) and diastolic (congestive) heart failure; E87.20 Acidosis, unspecified; I42.0 Dilated cardiomyopathy; R64 Cachexia; Z68.1 Body mass index [BMI] 19.9 or less, adult; N17.9 Acute kidney failure, unspecified; E87.3 Alkalosis; F01.53 Vascular dementia, unspecified severity, with mood disturbance; D61.818 Other pancytopenia; E87.1 Hypo-osmolality and hyponatremia; R04.2 Hemoptysis; I11.0 Hypertensive heart disease with heart failure; E78.5 Hyperlipidemia, unspecified; D63.8 Anemia in other chronic diseases classified elsewhere; I08.1 Rheumatic disorders of both mitral and tricuspid valves; I27.20 Pulmonary hypertension, unspecified; E87.6 Hypokalemia; J44.0 Chronic obstructive pulmonary disease with (acute) lower respiratory infection; I95.89 Other hypotension; I48.0 Paroxysmal atrial fibrillation; D50.9 Iron deficiency anemia, unspecified; F32.9 Major depressive disorder, single episode, unspecified; D75.829 Heparin-induced thrombocytopenia, unspecified; T45.515A Adverse effect of anticoagulants, initial encounter; I25.2 Old myocardial infarction; I25.10 Atherosclerotic heart disease of native coronary artery without angina pectoris; F17.200 Nicotine dependence, unspecified, uncomplicated; R73.9 Hyperglycemia, unspecified; T38.0X5A Adverse effect of glucocorticoids and synthetic analogues, initial encounter; Z23 Encounter for immunization; Z66 Do not resuscitate; Z90.49 Acquired absence of other specified parts of digestive tract; Z86.73 Personal history of transient ischemic attack (TIA), and cerebral infarction without residual deficits; Z79.52 Long term (current) use of systemic steroids; Z79.899 Other long term (current) drug therapy; Z79.01 Long term (current) use of anticoagulants; Z99.81 Dependence on supplemental oxygen; Z95.810 Presence of automatic (implantable) cardiac defibrillator; Z91.199 Patient's noncompliance with other medical treatment and regimen due to unspecified reason; Y95 Nosocomial condition
CPT/HCPCS: 36415; 36600; 71045; 80048; 80053; 80069; 81001; 82607; 82728; 82805; 82947; 83540; 83605; 83735; 83880; 84100; 84132; 84466; 84484; 84550; 85014; 85018; 85025; 85027; 85044; 85049; 85610; 85730; 86022; 86850; 86900; 86901; 86920; 87040; 87804; 87811; 90471; 90732; 93005; 93306; 94640; 94660; 94760; 96372; 97110; 97161; 97530; 99285; J0612; J0692; J0696; J1120; J1644; J1940; J2405; J2470; J2550; J2916; J2919; J3010; J3475; J3480; J3486; J7030; J7050; J7512; J7605; J7613; J7614; J7644; P9016; P9047

== ENCOUNTER 2024-10-22 15:33 | Inpatient (IN) | payer OTHER ==
[2024-10-22] MEDS: Levofloxacin 750mg IV 750 MG/150 ML BAG IV SCH (09:00)
--- NOTE | 2024-10-22 16:43 | RAD REPORT ---
EXAM: Chest Single View HISTORY: shortness of breath COMPARISON: 10/01/2024, 09/18/2024 FINDINGS: LUNGS/PLEURA: Chronically coarsened pulmonary interstitium, left greater than right, evidence of emph ysema. No yunier consolidation. MEDIASTINUM: The mediastinal silhouette is within normal limits. CARDIAC: The cardiac silhouette is within normal limits. UPPER ABDOMEN: No significant abnormality. BONES: No acute abnormality. LINES/TUBES/OTHER: ICD. IMPRESSION: Emphysema with similar diffuse interstitial thickening, left greater than right, which could reflect sequela of continued infection/inflammation. Compared with 09/18/2024, there has been some improvement. No consolidative airspace disease or pulmonary edema.
[2024-10-22] MEDS ORDERED: MAGNESIUM CITRATE 300 ML BOT ONE (17:48)
[2024-10-22 18:28] LABS: Anion Gap 8.7 mEq/L (5.0-15.0); BUN Blood Urea Nitrogen 43 mg/dL (7-18); Bicarbonate 36 mEq/L (21-32); Glomerular Filtration Rate 72 ml/min (=/>90); Glucose Level 108 mg/dL (74-106); Potassium 3.7 mEq/L (3.5-5.1); Sodium Level 135 mEq/L (136-145); Troponin High Sensitivity 24.4 pg/mL (<58.9)
[2024-10-22 18:58] LABS: PT Prothrombin Time 14.5 SECONDS (9.4-12.5); PTT, Activated Partial Thromb 24.9 SECONDS (24.3-36.9); Protime INR 1.39
--- NOTE | 2024-10-22 19:05 | RAD REPORT ---
EXAMINATION: CT ABDOMEN AND PELVIS WITHOUT CONTRAST CLINICAL INDICATION: Male, 64 years old.ABD PAIN TECHNIQUE: CT abdomen and pelvis was performed, without IV contrast, as per department protocol. Axia l, sagittal and coronal reconstructions were obtained. One or more of the following dose reduction techniques were used: [id number] exposure control, adjustment of the mA and/or kV according to the pa tient size, and/or iterative reconstruction. Unless otherwise specified, incidental findings do not require dedicated imaging follow-up. [id number]. IV CONTRAST: Not administered. COMPARISON: 12/20/2021 FINDINGS: The lack of intravenous contrast limits the sensitivity of this exam for evaluation of solid visceral organs, vascular structures, and retroperitoneum. LOWER CHEST: Similar interstitial thickening in the lingula. Left-sided small subpulmonic effusion. E mphysema.No significant pericardial effusion. Pacemaker UPPER GI: No significant abnormality. LIVER: No significant focal abnormality. GALLBLADDER/BILE DUCTS: No biliary ductal dilatation.? PANCREAS: Atrophy, but otherwise unremarkable. SPLEEN: Unremarkable. ADRENALS: No adrenal masses. KIDNEYS AND URETERS: No hydronephrosis.Within the limitations of a noncontrast CT, no suspicious harmony l lesions.No renal or ureteral calculi. ABDOMINAL AORTA AND OTHER VESSELS: Moderate atherosclerotic changes without aortic aneurysm. PERITONEUM: No abnormal free fluid. No free air. LYMPH NODES: No pathologic lymphadenopathy. ABDOMINAL WALL: Unremarkable SMALL BOWEL/COLON: Small bowel has normal course and caliber. No colonic wall thickening or pericolon ic inflammatory changes.Nonvisualized appendix but no secondary signs acute appendicitis. Stool burden is mild. URINARY BLADDER: Bladder catheter present. REPRODUCTIVE ORGANS: No pathologic process. MUSCULOSKELETAL: Multilevel degenerative changes in the spine. No acute fracture. ADDITIONAL FINDINGS: None. IMPRESSION: No acute or significant abnormalities in the abdomen or pelvis, with evaluation limited by lack of IV contrast. Nonspecific interstitial thickening at the lung bases with small left subpulmonic effusion and advanc ed emphysema.
--- NOTE | 2024-10-22 19:33 | ER ---
Nurse's Notes [facility] Name: Juan C Monge Age: 64 yrs Sex: Male : 1960 Arrival Date: 10/22/2024 Time: 15:33 Bed 24 Private MD: Diagnosis: COPD/ Chronic obstructive pulmonary disease with (acute) exacerbation;Physical deconditioning, constipation, decubitus pressure ulcer stage III Presentation: 10/22 15:47 Chief complaint: EMS states: vital signs stable. Here for constipation this visit. Left [address] because he didn't want to do PT. Coronavirus screen: Client denies travel out of the [place] in the last 14 days. At this time, the client does not indicate any symptoms associated with coronavirus-19. Ebola Screen: Patient denies travel to an Ebola-affected area in the 21 days before illness onset. 15:47 Method Of Arrival: EMS: [facility] 15:50 Initial Sepsis Screen: Does the patient meet any 2 criteria? No. Patient's initial hb sepsis screen is negative. Does the patient have a suspected source of infection? No. Patient's initial sepsis screen is negative. Risk Assessment: Do you want to hurt yourself or someone else? Patient reports no desire to harm self or others. Onset of symptoms was October 22, 2024. 15:50 Acuity: JESSI 3 hb Historical: - Allergies: 15:49 No Known Allergies; ll1 - PMHx: 15:49 COPD; CVA; Hyperlipidemia; Hypertension; Myocardial infarction; skull fracture; ll1 - PSHx: 15:49 pacemaker; Appendectomy; ll1 - Immunization history:: Adult Immunizations up to date. - Infectious Disease History:: Denies. - Social history:: Smoking status: Patient reports the use of cigarette tobacco products, smokes one-half pack cigarettes per day. Screenin:30 [place] [facility] Fall Risk Assessment (Adult) History of falling in the last 3 months, jb4 including since admission No falls in past 3 months (0 pts) Confusion or Disorientation No (0 pts) Intoxicated or Sedated No (0 pts) Impaired Gait No (0 pts) Mobility Assist Device Used No (0 pt) Altered Elimination No (0 pt) Score/Fall Risk Level 0 - 2 = Low Risk Oriented to surroundings, Maintained a safe environment. Abuse screen: Denies threats or abuse. Nutritional screening: Pt reports weight loss and loss of appetite due to chronic illlness.. Tuberculosis screening: No symptoms or risk factors identified. Assessment: 17:30 General: Appears in no apparent distress. uncomfortable, Behavior is cooperative, jb4 agitated, anxious. Pain: Complains of pain in gluteal cleft Pain does not radiate. Pain currently is 8 out of 10 on a pain scale. Neuro: Level of Consciousness is awake, alert, obeys commands, Oriented to person, place, time, situation. Cardiovascular: Patient's skin is warm and dry. Respiratory: Airway is patent Respiratory effort is even, unlabored, Respiratory pattern is regular, symmetrical, Pt on 3L NC. GI: Abdomen is flat, non-distended, Abd is soft and non tender X 4 quads. Reports constipation, cramping. : No signs and/or symptoms were reported regarding the genitourinary system. EENT: No signs and/or symptoms were reported regarding the EENT system. Derm: Skin is pink, warm \T\ dry. Decubitus located on sacrum approximately 1.5 cm to 2.5 cm is stage IV bed has granulation present. Musculoskeletal: Circulation, motion, and sensation intact. Range of motion: intact in all extremities. 18:30 Reassessment: Patient appears in no apparent distress at this time. Patient and/or jb4 family updated on plan of care and expected duration. Pain level reassessed. Patient is alert, oriented x 3, equal unlabored respirations, skin warm/dry/pink. 19:30 Reassessment: Patient appears in no apparent distress at this time. Patient and/or jb4 family updated on plan of care and expected duration. Pain level reassessed. Patient is alert, oriented x 3, equal unlabored respirations, skin warm/dry/pink. 20:30 Reassessment: Patient appears in no apparent distress at this time. Patient and/or jb4 family updated on plan of care and expected duration. Pain level reassessed. Patient is alert, oriented x 3, equal unlabored respirations, skin warm/dry/pink. 21:30 Reassessment: Patient appears in no apparent distress at this time. Patient and/or jb4 family updated on plan of care and expected duration. Pain level reassessed. Patient is alert, oriented x 3, equal unlabored respirations, skin warm/dry/pink. 22:30 Reassessment: Patient appears in no apparent distress at this time. Patient and/or jb4 family updated on plan of care and expected duration. Pain level reassessed. Patient is alert, oriented x 3, equal unlabored respirations, skin warm/dry/pink. 10/23 04:45 GI: Bowel sounds present in left upper quadrant. rg5 Vital Signs: 10/22 15:50 BP 168 / 88; Pulse 66; Resp 18; Temp 97.2; Pulse Ox 95% on R/A; Weight 58.97 kg; Height hb 5 ft. 10 in. ; Pain 8/10; 18:00 BP 108 / 78; Pulse 110; Resp 19; Pulse Ox 95% ; jb4 19:15 BP 104 / 67; Pulse 107; Resp 20; Pulse Ox 100% ; jb4 19:45 BP 96 / 65; Pulse 101; Resp 20; Pulse Ox 100% ; jb4 21:15 BP 107 / 76; Pulse 101; Resp 19; Pulse Ox 100% on 3 lpm NC; jb4 22:00 BP 95 / 62; Pulse 99; Resp 18; Pulse Ox 100% on 3 lpm NC; jb4 23:00 BP 101 / 67; Pulse 103; Resp 20; Pulse Ox 100% on 3 lpm NC; jb4 15:50 Body Mass Index 18.65 (58.97 kg, 177.8 cm) hb 15:50 Pain Scale: Adult hb ED Course: 15:38 Patient arrived in ED. im 15:43 Brendon Gaspar DO is Attending Physician. ms3 15:49 Arm band placed on. ll1 15:51 Triage completed. hb 16:29 XRAY Chest (1 view) In Process Unspecified. EDMS 17:07 Patient placed in an exam room, on a stretcher. ll1 17:30 Patient has correct armband on for positive identification. Placed in gown. Bed in low jb4 position. Call light in reach. Side rails up X 1. Provided Education on: plan of care. Client placed on continuous cardiac and pulse oximetry monitoring. NIBP monitoring applied. teletypesetter monitor on. Pulse ox on. 17:38 Attending Physician role handed off by Brendon Gaspar DO ec2 17:38 Ramesh Hardy MD is Attending Physician. ec2 17:50 No provider procedures requiring assistance completed. Missed attempt(s): 20 gauge in jb4 right forearm. antecubital area. Bleeding controlled, band aid applied, catheter tip intact. 17:53 Basic Metabolic Panel Sent. jb4 17:53 CBC with Diff Sent. jb4 17:53 Troponin HS Sent. jb4 18:15 Notified ED physician of a critical lab result(s). HGB 4.9. ll1 18:46 CT Abd/Pelvis - Without Contrast In Process Unspecified. EDMS 19:32 Prince Worley MD is Hospitalizing Provider. ec2 20:29 Attending Physician role handed off by Ramesh Hardy MD sp4 20:29 Lexa Cross MD is Attending Physician. sp4 21:29 Talha Napoles, RN is Primary Nurse. jb4 22:12 Prince Worley MD is Hospitalizing Provider. sp4 23:00 Patient admitted, IV remains in place. jb4 10/23 07:20 Primary Nurse role handed off by Talha Napoles, RN bd Administered Medications: 10/22 18:18 Drug: Magnesium Citrate PO Liquid 300 ml PO once Route: PO; jb4 19:00 Follow up: Response: No adverse reaction; Marked relief of symptoms jb4 23:04 Drug: Ipratropium Inhalation Aerosol 0.5 mg Inhalation once; Every 20 min for a total jb4 of 3 treatments x3 Route: Inhalation; 23:04 Drug: Diazepam PO 5 mg PO once Route: PO; jb4 10/23 00:00 Follow up: Response: No adverse reaction; Marked relief of symptoms jb4 10/22 23:05 Drug: MethylPrednisoLONE IVP 125 mg IVP once Route: IVP; Site: right antecubital; jb4 10/23 04:13 Follow up: Response: No adverse reaction rg5 10/22 23:05 Drug: Albuterol Inhalation 2.5 mg Inhalation every 20 minutes x3 Route: Inhalation; jb4 23:35 Drug: Albuterol Inhalation 2.5 mg Inhalation every 20 minutes x3 Route: Inhalation; jb4 23:35 Drug: Ipratropium Inhalation Aerosol 0.5 mg Inhalation once; Every 20 min for a total jb4 of 3 treatments x3 Route: Inhalation; Medication: 10/23 04:46 VIS not applicable for this client. rg5 Outcome: 10/22 19:32 Decision to Hospitalize by Provider. ec2 19:57 ER care complete, transfer ordered by . ec2 22:14 Decision to Hospitalize by Provider. sp4 23:00 Admitted to ER Hold. Please see [facility] for further documentation. jb4 23:00 Condition: stable 23:00 Discharge instructions given to patient, Instructed on the need for admit, Demonstrated understanding of instructions, 10/23 15:46 Patient left the ED. ll1 Signatures: Dispatcher [employer] EDMS Reanna Cline Heather, RN RN Talha Napoles RN RN jb4 Kiera Gregg RN RN ll1 Brendon Gaspar DO DO ms3 Lexa Cross MD MD sp4 Dee Chaves Edwin, MD MD ec2 Blaine Powell, SERA RN rg5
--- NOTE | 2024-10-22 19:33 | EDPHYS ---
Physician Documentation [facility] Name: Juan C Monge Age: 64 yrs Sex: Male : 1960 Arrival Date: 10/22/2024 Time: 15:33 Bed 24 Private MD: ED Physician Lexa Cross HPI: 10/22 17:19 This 64 yrs old Male presents to ER via EMS with complaints of Constipation. ms3 17:19 Juan C Monge, a 64-year-old male, presents to the emergency department with complaints ms3 of constipation. Per EMS patient was recently discharged from [facility], where he was supposed to undergo rehabilitation, he refused physical therapy and insisted on returning home. Per EMS patient vitals remained stable during transport. Patient states his last bowel movement was 2 days ago. Patient notes he has had some dizziness and shortness of breath.. Historical: - Allergies: 15:49 No Known Allergies; ll1 - PMHx: 15:49 COPD; CVA; Hyperlipidemia; Hypertension; Myocardial infarction; skull fracture; ll1 - PSHx: 15:49 pacemaker; Appendectomy; ll1 - Immunization history:: Adult Immunizations up to date. - Infectious Disease History:: Denies. - Social history:: Smoking status: Patient reports the use of cigarette tobacco products, smokes one-half pack cigarettes per day. ROS: 17:19 Constitutional: Negative for fever, and chills. Cardiovascular: Negative for chest ms3 pain, and palpitations. 17:19 MS/Extremity: Negative for injury and deformity, Skin: Negative for injury, rash, and discoloration, 17:19 Respiratory: Positive for shortness of breath, 17:19 Abdomen/GI: Positive for constipation, Exam: 17:19 Constitutional: This is a well developed, well nourished patient who is awake, alert, ms3 and in no acute distress. Cardiovascular: Regular rate and rhythm with a normal S1 and S2. No gallops, murmurs, or rubs. Normal PMI, no JVD. No pulse deficits. Respiratory: Lungs have equal breath sounds bilaterally, clear to auscultation and percussion. No rales, rhonchi or wheezes noted. No increased work of breathing, no retractions or nasal flaring. Abdomen/GI: Soft, non-tender, with normal bowel sounds. No distension or tympany. No guarding or rebound. No evidence of tenderness throughout. Skin: Warm, dry with normal turgor. Normal color with no rashes, no lesions, and no evidence of cellulitis. MS/ Extremity: Pulses equal, no cyanosis. Neurovascular intact. Full, normal range of motion. 17:33 ECG was reviewed by the Attending Physician. ms3 10/24 02:13 EKG 2049 sinus tachycardia rhythm consistent with arrhythmia with PAC, also rate 102. sp4 Left ventricular hypertrophy. EKG time 2049. No ST elevation or depression no PVCs. Vital Signs: 10/22 15:50 BP 168 / 88; Pulse 66; Resp 18; Temp 97.2; Pulse Ox 95% on R/A; Weight 58.97 kg; Height hb 5 ft. 10 in. ; Pain 8/10; 18:00 BP 108 / 78; Pulse 110; Resp 19; Pulse Ox 95% ; jb4 19:15 BP 104 / 67; Pulse 107; Resp 20; Pulse Ox 100% ; jb4 19:45 BP 96 / 65; Pulse 101; Resp 20; Pulse Ox 100% ; jb4 21:15 BP 107 / 76; Pulse 101; Resp 19; Pulse Ox 100% on 3 lpm NC; jb4 22:00 BP 95 / 62; Pulse 99; Resp 18; Pulse Ox 100% on 3 lpm NC; jb4 23:00 BP 101 / 67; Pulse 103; Resp 20; Pulse Ox 100% on 3 lpm NC; jb4 15:50 Body Mass Index 18.65 (58.97 kg, 177.8 cm) hb 15:50 Pain Scale: Adult hb MDM: 16:04 Medical Screening Exam initiated ms3 17:19 Differential diagnosis: Nonspecific abd pain, Constipation vs COPD. ms3 17:41 Transition of care: After a detail discussion of the patient's case, care is ms3 transferred to Ramesh Hardy MD. 17:41 Data reviewed: vital signs, nurses notes. ED course: Patient signed out to me by ec2 previous physician, in brief patient arrives today for evaluation of multiple complaints. Patient with reported constipation. Patient added on some dizziness as well. Plan is to follow-up lab work and CT abdomen pelvis. . 19:31 ED course: CT abdomen pelvis negative for any acute intra-abdominal pathology. Lab work ec2 is remarkable for significant anemia with hemoglobin of 4.9, ordered for 3 units of blood. Given the patient's constipation, generalized weakness and shortness of breath, will admit for symptomatic anemia with requirements of blood transfusion.. 19:32 ED course: Additionally patient is stool as soft and brown. Not melanic. CT abdomen ec2 pelvis shows no evidence of bleeding. On back examination also has a stage III sacral ulcer. No purulence, no discharge.. 22:10 Consideration of Admission/Observation Escalation of care including sp4 admission/observation considered. ED course: Patient initially came in with complaint of constipation and abdominal discomfort. Patient's initial hemoglobin checked at 4.9. I assumed care of the patient from Dr. Hayes, on repeat examination patient has no sign of rectal bleeding. Patient is severely physically deconditioned and appears dyspneic. Generalized wheezing on exam. Patient repeat hemoglobin is reasonable.. 22:11 ED course: Repeat hemoglobin 10.1. Initial hemoglobin reading of 4.9 likely an error of sp4 measurement. Transfusion was canceled. Transfer for GI assessment was also counseled. We will request admission for COPD management. Patient may benefit from assisted living facility.. 22:21 ED course: IV CONTRAST: Not administered. COMPARISON: 12/20/2021 FINDINGS: The lack of sp4 intravenous contrast limits the sensitivity of this exam for evaluation of solid visceral organs, vascular structures, and retroperitoneum. LOWER CHEST: Similar interstitial thickening in the lingula. Left-sided small subpulmonic effusion. Emphysema.No significant pericardial effusion. Pacemaker UPPER GI: No significant abnormality. LIVER: No significant focal abnormality. GALLBLADDER/BILE DUCTS: No biliary ductal dilatation.? PANCREAS: Atrophy, but otherwise unremarkable. SPLEEN: Unremarkable. ADRENALS: No adrenal masses. KIDNEYS AND URETERS: No hydronephrosis.Within the limitations of a noncontrast CT, no suspicious renal lesions.No renal or ureteral calculi. ABDOMINAL AORTA AND OTHER VESSELS: Moderate atherosclerotic changes without aortic aneurysm. PERITONEUM: No abnormal free fluid. No free air. LYMPH NODES: No pathologic lymphadenopathy. ABDOMINAL WALL: Unremarkable SMALL BOWEL/COLON: Small bowel has normal course and caliber. No colonic wall thickening or pericolonic inflammatory changes.Nonvisualized appendix but no secondary signs acute appendicitis. Stool burden is mild. URINARY BLADDER: Bladder catheter present. REPRODUCTIVE ORGANS: No pathologic process. MUSCULOSKELETAL: Multilevel degenerative changes in the spine. No acute fracture. RADIOLOGY SERVICES REPORT ADDITIONAL FINDINGS: None. IMPRESSION: No acute or significant abnormalities in the abdomen or pelvis, with evaluation limited by lack of IV contrast. Nonspecific interstitial thickening at the lung bases with small left subpulmonic effusion and advanced emphysema. . 10/22 16:18 Order name: Basic Metabolic Panel; Complete Time: 01:17 ms3 10/22 16:18 Order name: CBC with Diff; Complete Time: 01:17 ms3 10/22 21:45 Interpretation: RBC 3.10. sp4 10/22 16:18 Order name: Troponin HS; Complete Time: 01:17 ms3 10/22 18:22 Order name: Type And Screen; Complete Time: 01:17 ec2 10/22 18:22 Order name: PT-INR; Complete Time: 19:01 ec2 10/22 18:22 Order name: Ptt, Activated; Complete Time: 19:01 ec2 10/22 18:26 Order name: Bb Add On bd 10/22 19:57 Order name: LFT's ec2 10/22 20:47 Order name: Retic Count sp4 10/22 20:47 Order name: LDH sp4 10/22 20:48 Order name: Lactate w/ 2H reflex if indic. sp4 / 20:50 Order name: Haptoglobin EDMS / 22:45 Order name: Magnesium EDMS / 22:45 Order name: Phosphorus EDMS / 22:45 Order name: Urinalysis w/ reflexes EDMS / 22:45 Order name: Basic Metabolic Panel EDMS 10/22 22:45 Order name: Basic Metabolic Panel EDMS 10/22 22:45 Order name: CBC with Automated Diff EDMS 10/22 22:45 Order name: CBC with Automated Diff EDMS 10/22 22:51 Order name: Antibody Identification; Complete Time: 01:17 EDMS 10/22 23:45 Order name: Liver (Hepatic) Function; Complete Time: 01:17 EDMS 10/22 23:47 Order name: CBC Smear Scan; Complete Time: 01:17 EDMS 10/23 08:21 Order name: Glucose, Ancillary Testing EDMS 10/23 09:06 Order name: Phosphorus EDMS 10/23 09:06 Order name: Magnesium EDMS 10/23 12:49 Order name: Glucose, Ancillary Testing EDMA 10/22 16:18 Order name: XRAY Chest (1 view); Complete Time: 16:46 ms3 10/22 17:53 Order name: CT Abd/Pelvis - Without Contrast; Complete Time: 19:12 ec2 10/22 22:46 Order name: Occupational Therapy Consult [facility] 10/22 22:46 Order name: Physical Therapy Consult [facility] 10/22 16:18 Order name: Cardiac monitoring; Complete Time: 17:35 ms3 10/22 16:18 Order name: EKG - Nurse/Tech; Complete Time: 17:35 ms3 10/22 16:18 Order name: IV Saline Lock; Complete Time: 17:35 ms3 10/22 16:18 Order name: Labs collected and sent; Complete Time: 17:53 ms3 10/22 16:18 Order name: O2 Per Protocol; Complete Time: 17:35 ms3 10/22 16:18 Order name: O2 Sat Monitoring; Complete Time: 17:35 ms3 10/22 18:22 Order name: Consent for Blood Transfusion; Complete Time: 20:46 ec2 EC:33 Rate is 103 beats/min. Rhythm is regular. QRS [place] is Normal. NC interval is normal. ms3 Clinical impression: Sinus tachycardia. Interpreted by me. Reviewed by me. Administered Medications: 18:18 Drug: Magnesium Citrate PO Liquid 300 ml PO once Route: PO; jb4 19:00 Follow up: Response: No adverse reaction; Marked relief of symptoms jb4 23:04 Drug: Ipratropium Inhalation Aerosol 0.5 mg Inhalation once; Every 20 min for a total jb4 of 3 treatments x3 Route: Inhalation; 23:04 Drug: Diazepam PO 5 mg PO once Route: PO; jb4 10/23 00:00 Follow up: Response: No adverse reaction; Marked relief of symptoms jb4 10/22 23:05 Drug: MethylPrednisoLONE IVP 125 mg IVP once Route: IVP; Site: right antecubital; jb4 10/23 04:13 Follow up: Response: No adverse reaction rg5 10/22 23:05 Drug: Albuterol Inhalation 2.5 mg Inhalation every 20 minutes x3 Route: Inhalation; jb4 23:35 Drug: Albuterol Inhalation 2.5 mg Inhalation every 20 minutes x3 Route: Inhalation; jb4 23:35 Drug: Ipratropium Inhalation Aerosol 0.5 mg Inhalation once; Every 20 min for a total jb4 of 3 treatments x3 Route: Inhalation; Disposition Summary: 10/22/24 22:14 Hospitalization Ordered Notes: Hospitalization Status: Inpatient Admission(10/22/24 22:14) sp4 Provider: Prince Meir(10/22/24 22:14) sp4 Condition: Stable(10/22/24 22:14) sp4 Problem: new(10/22/24 22:14) sp4 Symptoms: have improved(10/22/24 22:14) sp4 Bed/Room Type: Standard(10/22/24 22:14) sp4 Location: Telemetry/MedSurg (Inpatient)(10/23/24 14:18) bd Room Assignment: [facility](10/23/24 14:18) bd Diagnosis - COPD/ Chronic obstructive pulmonary disease with (acute) exacerbation sp4 - Physical deconditioning, constipation, decubitus pressure ulcer stage III sp4 Forms: - Medication Reconciliation Form sp4 - SBAR form sp4 - Leadership Thank You Letter sp4 Critical care time excluding procedures: 19:31 Critical care time: Bedside Care: 30 minutes, Consultation: 5 minutes. Total time: 35 ec2 minutes Signatures: Dispatcher [employer] EDMS Reanna Cline Heather, RN RN Talha Napoles RN RN jb4 Kiera Gregg RN RN ll1 Brendon Gaspar DO DO ms3 Emely Hercules rv1 Lexa Cross MD MD sp4 Ramesh Hardy MD MD ec2 Blaine Powell RN rg5 Corrections: (The following items were deleted from the chart) 16:18 16:18 BASIC METABOLIC PANEL+C.LAB.BRZ ordered. EDMS EDMS 16:18 16:18 CBC+H.LAB.BRZ ordered. EDMS EDMS 16:18 16:18 Troponin High Sensitivity+C.LAB.BRZ ordered. EDMS EDMS 16:18 16:18 Chest Single View+RAD.RAD.BRZ ordered. EDMS EDMS 18:35 17:23 Abdomen Pelvis W Con+CT.RAD.BRZ ordered. EDMS EDMS 19:38 19:32 Telemetry/MedSurg (Inpatient) ec2 rv1 19:38 19:32 ec2 rv1 19:40 19:38 [facility] ER HOLD rv1 rv1 19:40 19:38 ERHOLD- rv1 rv1 19:57 19:32 Inpatient Admission ec2 ec2 19:57 19:32 Prince Meir ec2 ec2 19:57 19:32 Stable ec2 ec2 19:57 19:32 an acute exacerbation ec2 ec2 19:57 19:32 have improved ec2 ec2 19:57 19:32 Standard ec2 ec2 19:57 19:32 Anemia, unspecified ec2 ec2 19:57 19:40 Telemetry/MedSurg (Inpatient) rv1 ec2 19:57 19:40 rv1 ec2 19:57 19:57 transferring doc ec2 ec2 20:40 18:22 PACKED RBC LEUKORED+BB.LAB.BRZ ordered. EDMS EDMS 20:40 18:24 ABO/RH typing ordered. EDMS EDMS 20:40 18:24 Antibody Screen ordered. EDMS EDMS 22:12 19:57 Other Acute Care Facility ec2 sp4 22:12 19:57 Higher level of care ec2 sp4 22:12 19:57 Stable ec2 sp4 22:12 19:57 an acute exacerbation ec2 sp4 22:12 19:57 are unchanged ec2 sp4 22:12 19:57 Anemia, unspecified ec2 sp4 22:12 19:57 transferring doc ec2 sp4 22:12 19:57 Concern for GI Bleed, Weakness, Sacral Ulcer ec2 sp4 22:53 22:14 Telemetry/MedSurg (observation) sp4 rv1 22:53 22:14 sp4 rv1 10/23 11:18 11:17 Wound Culture+BA.LAB.BRZ ordered. EDMS EDMS 14:18 02 22:53 [facility] ER HOLD rv1 bd 10/23 14:18 0203 22:53 ERHOLD- rv1 bd
[2024-10-22 20:41] LABS: Hematocrit 30.2 % (39.6-49.0)
[2024-10-22 20:42] LABS: MCH 32.5 pg (27.0-35.0); MCHC 33.3 g/dL (32.0-36.0); MCV 97.5 fL (80-100); Platelets 267 thou/uL (152-406); Red Cell Distribution Width 19.7 % (12.1-15.2)
[2024-10-22 20:43] LABS: Basophils % 0.2 % (0-1.3); Eosinophils % 0.9 % (0-4.4); MPV 9.6 fL (7.6-11.3); Monocytes % 5.5 % (3.3-12.3); Neutrophils % 88.4 % (41.7-73.7); Nucleated Red Blood Cells % 0.1 % (0-0)
[2024-10-22 20:44] LABS: Absolute Eosinophils 0.1 K/uL (0-0.5); Absolute Lymphocytes (CBC) 0.7 K/uL (0.7-4.9); Absolute Monocytes 0.7 K/uL (0.1-1.3); Absolute Neutrophil 11.9 K/uL (1.8-8.0)
[2024-10-22 20:53] LABS: Hemoglobin 10.1 g/dL (13.6-17.9)
[2024-10-22] MEDS ORDERED: ALBUTEROL 2.5 MG/3 ML NEB SOL NEB PRN (22:41)
[2024-10-22] MEDS ORDERED: ONDANSETRON 4 MG/2 ML VIAL IV PRN (22:41)
--- NOTE | 2024-10-22 22:52 | P.HP ---
Certification for Inpatient Patient admitted to: Observation With expected LOS: <2 Midnights Practitioner: I am a practitioner with admitting privileges, knowledge of patient current condition, hospital course, and medical plan of care. Services: Services provided to patient in accordance with Admission requirements found in Title 42 Section 412.3 of the Code of Federal Regulations Patient History Date of Service: 10/22/24 Reason for admission: generalized weakness History of Present Illness: Patient is a 64 year old male with chronic respiratory failure, COPD ON 2L at home. He presents to the ER complaining of abdominal discomfort and constipation. Associated symptoms include malaise. Patient is a poor historian. He also reports urinary frequency. UA still pending. During my evaluation, patient appeared cachectic, chronically ill. He has a Varma catheter in place. Chest imaging demonstrates emphysematous changes. He is on 2.5 L via NC Allergies No Known Allergies Allergy (Verified 09/12/23 00:32) Home Medications: Fluticasone/Umeclidin/Vilanter [Trelegy Ellipta 100-62.5-25] 1 each IH DAILY 30 Days #1 inhaler 09/15/23 Citalopram [Celexa*] 10 mg PO DAILY 30 Days #30 tab 02/07/24 Nicotine [Nicoderm*] 21 mg TD DAILY 42 Days #42 patch 02/07/24 Benzonatate [Tessalon Perle*] 100 mg PO TID PRN #30 cap 03/29/24 Ensure Enlive 237 ml PO BID #30 can 03/29/24 Ipratropium Neb [Atrovent*] 0.5 mg NEB [id number] PRN #120 amp 03/29/24 Thiamine HCl [Vitamin B-1*] 200 mg PO DAILY #60 tab 03/29/24 predniSONE [Deltasone*] 10 mg PO DAILY #5 tab 03/29/24 Acetaminophen [Tylenol*] 650 mg PO Q4HP PRN tab 10/02/24 Albuterol Neb [Proventil 0.083% Neb Soln] 2.5 mg NEB Q6HP PRN amp 10/02/24 Apixaban [Eliquis *] 2.5 mg PO BID 10/02/24 Bisacodyl [Dulcolax*] 10 mg MO DAILY PRN supp 10/02/24 Bumetanide [Bumex*] 1 mg PO DAILY tab 10/02/24 Calcium Carbonate [Tums Regular*] 500 mg PO TIDWMHS PRN tab 10/02/24 Docusate [Colace Cap*] 100 mg PO BID cap 10/02/24 Iron/FA/Vit B-Com W/C [Hemocyte Plus*] 1 tab PO DAILY WITH BREAKFAST tab 10/02/24 Magnesium Oxide [Mag 0X*] 400 mg PO DAILY tab 10/02/24 Metoprolol Succinate [Toprol Xl*] 12.5 mg PO [id number] tab 10/02/24 Midodrine HCl [Proamatine*] 10 mg PO TID tab 10/02/24 Polyethyl Gly 3350 [Glycolax*] 17 gm PO DAILY udbot 10/02/24 Spironolactone [Aldactone*] 25 mg PO DAILY tab 10/02/24 Vitamin D [Drisdol*] 50,000 unit PO Q7D@0900 cap 10/02/24 - Past Medical/Surgical History Diabetic: No -: COPD -: Paroxysmal Afib -: HTN -: Tobacco abuse -: TIA -: skull fx -: defibrilator -: Home O2 -: Hx Hyponatremia (Dr. Hargrove/ Dr. Menjivar) -: BUE thromus started eliquis -: SEVERELY CHF, EF 10-15% -: Appendectomy -: ICM with AICD Psychosocial/ Personal History: Patient lives with a girlfriend at home - Family History Father -: Diabetes Mother -: Diabetes - Social History Alcohol use: No CD- Drugs: No Caffeine use: No Physical Examination - Physical Exam General: Acute distress, Other (ill-appearing) HEENT: Other (bilateral temporal muscle wasting) Respiratory: Diminished, Other (No wheezing or ronchi appreciated) Neurological: Normal speech - Studies Laboratory Data (last 24 hrs) 10/22/24 10/22/24 10/22/24 17:45 17:45 17:45 WBC 13.40 H Hgb 10.1 L Hct 30.2 L Plt Count 267 PT 14.5 H INR 1.39 APTT 24.9 Sodium 135 L Potassium 3.7 BUN 43 H Creatinine 1.12 Glucose 108 H Assessment and Plan - Problems (Diagnosis) (1) Acute and chronic respiratory failure Current Visit: No Status: Acute Qualifiers: (2) Atrial fibrillation Current Visit: No Status: Acute (3) COPD (chronic obstructive pulmonary disease) Onset Date: 03/14/18 Current Visit: No Status: Acute Qualifiers: (4) CVA (cerebral vascular accident) Onset Date: 03/14/18 Current Visit: No Status: Acute Qualifiers: (5) Depression Current Visit: No Status: Acute (6) Mitral regurgitation Current Visit: No Status: Acute (7) Pulmonary hypertension Current Visit: No Status: Acute - Plan Assessment Patient is a 64 year old male being admitted with non-specific symptoms, mainly abdominal pain and discomfort. CT abdomen pelvis negative for any acute intra-abdominal pathology Generalized weakness Abdominal pain Acute on chronic respiratory failure COPD Severe malnutrition PLAN: Will admit under observation with telemetry Given increased oxygen requirement from baseline, will treat as COPD exacerbation Start scheduled Solu-Medrol, IV levofloxacin and DuoNebs IV fluid infusion Patient looks chronically ill and cachectic. He will benefit from nutrition consult PT/OT before discharge Follow urine analysis and urine cultures - Advance Directives Does patient have a Living Will: Yes Does patient have a Durable POA for Healthcare: No
[2024-10-22] MEDS ORDERED: DIAZEPAM 5 MG TABLET ONE (22:54)
[2024-10-22] MEDS ORDERED: IPRATROPIUM BROM 0.5MG/2.5ML ONE (22:54)
[2024-10-22] MEDS ORDERED: METHYLPREDNISOLONE 125 MG INJ ONE (22:54)
[2024-10-22] MEDS ORDERED: ALBUTEROL 2.5 MG/3 ML NEB SOL ONE (22:54)
[2024-10-22] MEDS: METHYLPREDNISOLONE 40 MG INJ IV SCH (22:58)
[2024-10-22 23:41] LABS: ALT/SGPT 16 U/L (16-61); Albumin 2.8 g/dL (3.4-5.0); Albumin/Globulin Ratio 0.8 (1.1-1.8); Alkaline Phosphatase 81 U/L (45-117); Bilirubin Direct 0.3 mg/dL (0-0.2); Bilirubin Indirect, Calculated 0.7 mg/dL (0.2-0.8); Globulin 3.6 g/dL (2.3-3.5); Protein, Total 6.4 g/dL (6.4-8.2)
[2024-10-22 23:45] LABS: AST/SGOT < 10 U/L (15-37)
[2024-10-22 23:47] LABS: Anisocytosis SLIGHT; Blood Morphology Comment NOTED (NOT SEEN); Platelet Estimate ADEQ; Polychromasia SLIGHT; White Blood Cell Scan OK (OK)
[2024-10-23] MEDS ORDERED: NA CHLORIDE 0.9% 0 ML ONE (01:37)
[2024-10-23] MEDS ORDERED: CEFTRIAXONE 1000 MG/VIAL ONE ×3 (01:37→09:10)
[2024-10-23] MEDS ORDERED: NA CHLORIDE 0.9% 1,000 ML ONE ×2 (01:37→15:44)
[2024-10-23] MEDS ORDERED: NA CHLORIDE 0.9% 50 ML ONE ×2 (01:48→09:10)
[2024-10-23] MEDS: CEFTRIAXONE 1,000 MG in NA CHLORIDE 0.9% 50 ML IVPB SCH (01:55)
[2024-10-23] MEDS: NA CHLORIDE 0.9% 1,000 ML IV SCH (01:56)
[2024-10-23] MEDS: Levofloxacin 750mg IV 750 MG/150 ML BAG IV ONE (02:00)
[2024-10-23 06:05] LABS: Absolute Lymphocytes (CBC) 0.1 K/uL (0.7-4.9); Absolute Monocytes 0.1 K/uL (0.1-1.3); Basophils % 0.2 % (0-1.3); Hematocrit 27.3 % (39.6-49.0); Hemoglobin 8.9 g/dL (13.6-17.9); Lymphocytes % 1.5 % (15.3-44.8); MCH 32.7 pg (27.0-35.0); MCHC 32.6 g/dL (32.0-36.0); MCV 100.4 fL (80-100); MPV 9.7 fL (7.6-11.3); Monocytes % 1.4 % (3.3-12.3); Neutrophils % 96.9 % (41.7-73.7); Nucleated Red Blood Cells % 0.1 % (0-0); Platelets 181 thou/uL (152-406); RBC Red Blood Cell Count 2.72 M/uL (4.33-5.43); Red Cell Distribution Width 19.4 % (12.1-15.2)
[2024-10-23 09:05] LABS: Anion Gap 7.4 mEq/L (5.0-15.0); Magnesium 2.5 mg/dL (1.6-2.4); Phosphorus 5.2 mg/dL (2.5-4.9); Potassium 4.4 mEq/L (3.5-5.1)
[2024-10-23] MEDS ORDERED: METHYLPREDNISOLONE 40 MG INJ ONE (09:10)
[2024-10-23] MEDS ORDERED: ACETAMINOPHEN 500 MG TAB ONE (10:34)
[2024-10-23 11:38] LABS: Specific Gravity 1.019 (1.005-1.030); Sqamous Epithelial <5 /HPF (None Seen); Urine Bacteria None Seen /HPF (<20); Urine Bilirubin NEGATIVE (Negative); Urine Blood Negative (Negative); Urine Clarity Turbid (Clear); Urine Color Yellow (Yellow); Urine Culture Reflex Order NOT NEEDED; Urine Glucose NEGATIVE (Negative); Urine Ketones NEGATIVE (Negative); Urine Microscopic Reflex YN ORDER UMIC; Urine Mucus Slight /HPF (None Seen); Urine Nitrite NEGATIVE (Negative); Urine Protein TRACE (Negative); Urine RBC <5 /HPF (None Seen); Urine Urobilinogen Normal (Normal); Urine WBC <5 /HPF (<5); Urine WBC Clump Rare /HPF (None Seen); Urine Yeast (Budding) Trace /HPF (None Seen)
--- NOTE | 2024-10-23 12:11 | EKG ---
Test Date: 2024-10-22 Test Time: 20:50:19 Fuel Yard Operator: LORA MEASUREMENT RESULTS: Intervals: Rate: 102 [place]: 112 QRSD: 100 QT: 396 QTc: 516 [place]: P: -10 [place]: 112 QRS: 31 T: 88 INTERPRETIVE STATEMENTS: Sinus tachycardia with premature atrial complexes Voltage criteria for left ventricular hypertrophy T wave abnormality, consider lateral ischemia Abnormal ECG Compared to ECG 10/22/2024 17:27:24 Atrial premature complex(es) now present Atrial abnormality no longer present T-wave abnormality still present Possible ischemia still present Electronically Signed On 10-23-24 12:09:57 GLAZE HANDLER by Guevara Shepherd
--- NOTE | 2024-10-23 12:12 | EKG ---
Test Date: 2024-10-22 Test Time: 17:27:24 Assistant Center Manager: MEKA MEASUREMENT RESULTS: Intervals: Rate: 103 MA: 146 QRSD: 98 QT: 408 QTc: 534 [place]: P: 92 MA: 146 QRS: 78 T: 74 INTERPRETIVE STATEMENTS: Sinus tachycardia Biatrial enlargement Left ventricular hypertrophy T wave abnormality, consider lateral ischemia Abnormal ECG Compared to ECG 09/04/2024 18:55:15 Left ventricular hypertrophy now present Possible ischemia now present Ventricular premature complex(es) no longer present T-wave abnormality still present Electronically Signed On 10-23-24 12:11:16 INDUSTRIAL CAFETERIA MANAGER by Guevara Shepherd
[2024-10-23] MEDS: LORazepam 2 MG/ML VIAL IV ONE (14:00)
[2024-10-23] MEDS ORDERED: IPRATROPIUM BROM 0.5MG/2.5ML ONE (14:16)
[2024-10-23] MEDS ORDERED: ALBUTEROL 2.5 MG/3 ML NEB SOL ONE (14:16)
[2024-10-23] MEDS: clonazePAM 0.5 MG TAB PO SCH (15:00)
[2024-10-23] MEDS ORDERED: clonazePAM 0.5 MG TAB ONE (15:17)
[2024-10-23] MEDS ORDERED: LORazepam 2 MG/ML VIAL ONE (15:31)
[2024-10-23] MEDS: ENSURE ENLIVE 237 ML CAN PO SCH (21:00)
[2024-10-23] MEDS: ACETAMINOPHEN 500 MG TAB PO PRN (21:11)
--- NOTE | 2024-10-24 02:14 | P.PN ---
Subjective Date of Service: 10/23/24 patient has left the hospital recently. However, he ended up signing out AMA from the [facility]. Patient's prognosis is poor. He would benefit from DNR and hospice care as he is very noncompliant with his treatment. Will discuss with him and have tried to talk to his family but they do not want him at their home. Patient's long-term prognosis is poor. He will need to go back to [place]. Review of Systems 10-point ROS is otherwise unremarkable Physical Examination - Vital Signs Temperature: 97.7 F Blood Pressure: 94/56 Pulse: 110 Respirations: 17 Pulse Ox (%): 94 - Physical Exam General: Alert, In no apparent distress HEENT: Atraumatic, PERRLA, EOMI Neck: Supple, JVD not distended Respiratory: Clear to auscultation bilaterally, Normal air movement Cardiovascular: Regular rate/rhythm, Normal S1 S2 Gastrointestinal: Normal bowel sounds, No tenderness Musculoskeletal: No tenderness Integumentary: No rashes Neurological: Normal speech, Normal tone, Normal affect Lymphatics: No axilla or inguinal lymphadenopathy - Studies Medications List Reviewed: Yes Assessment & Plan - Problems (Diagnosis) (1) Acute and chronic respiratory failure Current Visit: No Status: Acute Qualifiers: (2) Atrial fibrillation Current Visit: No Status: Acute (3) CHF (congestive heart failure), NYHA class IV Current Visit: No Status: Acute Qualifiers: Congestive heart failure type: systolic Congestive heart failure chronicity: acute Qualified Code(s): I50.21 - Acute systolic (congestive) heart failure (4) COPD exacerbation Current Visit: No Status: Acute (5) CVA (cerebral vascular accident) Onset Date: 03/14/18 Current Visit: No Status: Acute Qualifiers: (6) Depression Current Visit: No Status: Acute (7) HTN (hypertension) Onset Date: 03/14/18 Current Visit: No Status: Acute (8) Pulmonary hypertension Current Visit: No Status: Acute (9) Tobacco abuse Onset Date: 03/14/18 Current Visit: No Status: Acute (10) Cachexia Current Visit: Yes Status: Acute (11) Emaciated Current Visit: Yes Status: Acute (12) Cardiac cirrhosis Current Visit: Yes Status: Acute (13) CEE (acute kidney injury) Current Visit: No Status: Acute (14) Hypercapnic respiratory failure Current Visit: No Status: Acute - Plan PLAN: 1. Patient with hypoxic respiratory failure; patient with advanced COPD with severe pulmonary hypertension and severe cardiomyopathy with ejection fraction of 10%; patient's prognosis is very poor. Patient signed himself out of [facility] [place]. He came into the hospital afterwards and patient was requiring admission. Patient does not have a safe discharge as there is no family willing to take him at this time. His daughter used to help him now but she decided that she did not want to be responsible for his care as he is very belligerent to her children. I have talked to the patient and he realizes he does not have long to live. He asked me if he was in the process of dying because he feels like he is not getting any better. Will arrange for placement at this time. Patient will benefit for hospice care. 2. Cardiac cirrhosis; continue monitoring LFTs. Patient has recurrent elevation in his LFTs because of his severe cardiac disease and tricuspid regurgitation. 3. CEE; prerenal azotemia; patient not eating or drinking much. Patient does not want any further aggressive intervention performed at this time. Discharge Plan: [facility] Plan to discharge in: Greater than 2 days - Advance Directives Does patient have a Living Will: No Does patient have a Durable POA for Healthcare: Yes - Code Status/Comfort Care Code Status Assessed: Yes Code Status: Full Code Critical Care: No Time Spent Managing PTS Care (In Minutes): 35
[2024-10-25] MEDS: ALBUTEROL 2.5 MG/3 ML NEB SOL ONE ×2 (01:21→22:55)
[2024-10-25] MEDS: IPRATROPIUM BROM 0.5MG/2.5ML ONE ×2 (01:34→22:36)
[2024-10-25] MEDS: HYDROCODONE/APAP 5/325 MG TAB PO ONE (03:58)
[2024-10-25 06:40] LABS: Anion Gap 11.4 mEq/L (5.0-15.0); Magnesium 3.3 mg/dL (1.6-2.4); Potassium 5.4 mEq/L (3.5-5.1)
[2024-10-25 06:48] LABS: Absolute Lymphocytes (CBC) 0.2 K/uL (0.7-4.9); Absolute Monocytes 0.5 K/uL (0.1-1.3); Absolute Neutrophil 6.6 K/uL (1.8-8.0); Basophils % 0.1 % (0-1.3); Hematocrit 27.5 % (39.6-49.0); Hemoglobin 9.1 g/dL (13.6-17.9); Lymphocytes % 2.3 % (15.3-44.8); MCH 33.1 pg (27.0-35.0); MCV 100.3 fL (80-100); Monocytes % 6.3 % (3.3-12.3); Neutrophils % 91.3 % (41.7-73.7); Nucleated Red Blood Cells % 0.2 % (0-0); Platelets 104 thou/uL (152-406); RBC Red Blood Cell Count 2.74 M/uL (4.33-5.43); Red Cell Distribution Width 19.5 % (12.1-15.2)
--- NOTE | 2024-10-25 19:56 | CON ---
Date of Consultation: 10/25/2024 Diagnosis: Sacral decubitus ulcer. History Of Present Illness: This is the case of a 64-year-old patient admitted for multiple medical problems including COPD, also found to have stage IV decubitus ulcer. Surgical consult was obtained and [facility] consult obtained for the management and help. Most of the information is ob tained from the patient's chart. The patient is not much interested in giving us much information. He says it is hurting back in the area of his sacrum. He is trying to do the best moving side-to-jeanne e, but once again his breathing kind of makes that difficult. Review of Systems: Other than that review of systems cannot be obtained. Allergies: NONE. Medications: Reviewed include Nicoderm, Celexa, Trelegy, Eliquis, Dulcolax, Bumex, Colace, Toprol, _ , Aldactone. Past Medical History: Includes COPD, atrial fibrillation, TIA, diabetes. Past Surgical History: Include appendectomy, defibrillator placed, skull fracture. Social History: He does not smoke. He does not drink alcohol. Physical Examination: Vital Signs: Reviewed. General: The patient is awake, not distressed. Chest: Bilateral breath sounds. Abdomen: Soft and depressible. Integumentary: Shows stage IV decubitus ulcer on the sacrum. Fibrin present in that area. Bone is very close. There is a small layer on top of the bone itself that was very close, making this stage IV ulcer. There is some maceration around the skin. No purulent discharge. Fibrin present. Laboratory Data: Blood work shows WBC count 7.2, hemoglobin of 9.1, platelets of 104. INR is 1.39. Potassium 5.4, BUN is 87, creatinine is 1.5. CAT scan of the abdomen and pelvis, no acute or signif icant abnormalities on the abdomen and pelvis. Assessment: A 64-year-old patient with stage IV sacral decubitus ulcer. The size of the ulcer is ab out 2 x 0.8 x 0.5 cm with undermining from 12-12 o'clock about 2.5 cm. Plan: We will start with enzymatic debrider. If we have a chance and clinically improved, then we h ave a chance at 1 point to take him to surgery. I will like to do so to most likely use pulse lavage and do a formal debridement. In the meantime, bedside is okay. We do not want to disturb his reas on why he is here and definitely not to deteriorate his lung status. If he gets discharged, we will like to [facility]. That way, we can keep this area clean. Most likely , once we have it completely clean, he may require wound VAC. We also discussed with him the importa nce of nutrition and off-loading. HM/MODL Voice ID: [id number] Report ID: [id number]
[2024-10-25] MEDS: HYDROCODONE/APAP 5/325 MG TAB PO PRN (22:12)
[2024-10-26 04:38] LABS: Absolute Lymphocytes (CBC) 0.1 K/uL (0.7-4.9); Absolute Monocytes 0.3 K/uL (0.1-1.3); Absolute Neutrophil 4.5 K/uL (1.8-8.0); Basophils % 0.3 % (0-1.3); Hemoglobin 8.9 g/dL (13.6-17.9); Lymphocytes % 1.8 % (15.3-44.8); MCH 33.2 pg (27.0-35.0); MCHC 32.9 g/dL (32.0-36.0); MCV 100.9 fL (80-100); MPV 10.9 fL (7.6-11.3); Monocytes % 6.9 % (3.3-12.3); Nucleated Red Blood Cells % 0.7 % (0-0); Platelets 62 thou/uL (152-406); RBC Red Blood Cell Count 2.68 M/uL (4.33-5.43); Red Cell Distribution Width 19.1 % (12.1-15.2)
[2024-10-26 05:19] LABS: Albumin 2.7 g/dL (3.4-5.0); Albumin/Globulin Ratio 0.9 (1.1-1.8); Anion Gap 13.1 mEq/L (5.0-15.0); Bilirubin Total 2.3 mg/dL (0.2-1.0); Magnesium 3.5 mg/dL (1.6-2.4); Potassium 5.1 mEq/L (3.5-5.1); Protein, Total 5.7 g/dL (6.4-8.2)
[2024-10-26 05:24] LABS: Band Neutrophils 17 % (0-1); Differential Total Cells Count 100; Lymphocytes 7 % (15-42); Metamyelocytes 3 % (0-0); Monocytes 1 % (0-10); Nucleated Red Blood Cells 4 /100WBC; Reactive Lymphocytes 5 %; Segmented Neutrophils 67 % (40-80)
[2024-10-26 05:25] LABS: Blood Morphology Comment NOTED (NOT SEEN); Platelet Estimate ADEQ; Polychromasia 2+
[2024-10-26] MEDS: COLLAGENASE 30 GM OINTMENT TOP SCH (09:00)
[2024-10-27 06:10] LABS: Absolute Lymphocytes (CBC) 0.1 K/uL (0.7-4.9); Absolute Monocytes 0.3 K/uL (0.1-1.3); Absolute Neutrophil 4.8 K/uL (1.8-8.0); Basophils % 0.1 % (0-1.3); Eosinophils % 0.1 % (0-4.4); Hematocrit 28.6 % (39.6-49.0); Hemoglobin 9.4 g/dL (13.6-17.9); Lymphocytes % 2.1 % (15.3-44.8); MCH 33.2 pg (27.0-35.0); MCHC 32.8 g/dL (32.0-36.0); MCV 101.2 fL (80-100); MPV 11.9 fL (7.6-11.3); Monocytes % 6.5 % (3.3-12.3); Neutrophils % 91.2 % (41.7-73.7); Nucleated RBC Absolute Count 0.1 (0-0); Platelets 49 thou/uL (152-406); RBC Red Blood Cell Count 2.83 M/uL (4.33-5.43); Red Cell Distribution Width 19.5 % (12.1-15.2)
[2024-10-27 06:54] LABS: Albumin 2.8 g/dL (3.4-5.0); Anion Gap 11.2 mEq/L (5.0-15.0); Bilirubin Total 2.3 mg/dL (0.2-1.0); Globulin 2.8 g/dL (2.3-3.5); Magnesium 3.5 mg/dL (1.6-2.4); Potassium 5.2 mEq/L (3.5-5.1); Protein, Total 5.6 g/dL (6.4-8.2)
[2024-10-27] MEDS: IPRATROPIUM BROM 0.5MG/2.5ML NEB PRN (09:02)
[2024-10-27] MEDS: ALBUTEROL 2.5 MG/3 ML NEB SOL NEB PRN (09:02)
[2024-10-27] MEDS: MIDODRINE HCL 5 MG TABLET PO PRN (13:30)
[2024-10-27] MEDS: carvediloL 3.125 MG TAB PO SCH (13:31)
--- NOTE | 2024-10-27 14:01 | P.DS ---
Admission Date: 10/24/24 Discharge Date: 10/27/24 Disposition: TRANSFER TO JAIL Discharge Condition: GOOD Reason for Admission: generalized weakness Brief History of Present Illness: Patient is a 64 year old male with chronic respiratory failure, COPD ON 2L at home. He presents to the ER complaining of abdominal discomfort and constipation. Associated symptoms include malaise. Patient is a poor historian. He also reports urinary frequency. UA still pending. During my evaluation, patient appeared cachectic, chronically ill. He has a Varma catheter in place. Chest imaging demonstrates emphysematous changes. He is on 2.5 L via NC - Physical Exam General: Alert, In no apparent distress HEENT: Atraumatic, PERRLA, EOMI Neck: Supple, JVD not distended Respiratory: Clear to auscultation bilaterally, Normal air movement Cardiovascular: Regular rate/rhythm, Normal S1 S2 Gastrointestinal: Normal bowel sounds, No tenderness Musculoskeletal: No tenderness Integumentary: No rashes Neurological: Normal speech, Normal tone, Normal affect Lymphatics: No axilla or inguinal lymphadenopathy Hospital Course: Patient is a 64 year old male with chronic respiratory failure, COPD ON 2L at home. He presents to the ER complaining of abdominal discomfort and constipation. Associated symptoms include malaise. Patient is a poor historian. He also reports urinary frequency. UA still pending. During my evaluation, patient appeared cachectic, chronically ill. He has a Varma catheter in place. Chest imaging demonstrates emphysematous changes. He is on 2.5 L via NC tolerating diet, stable to discharge to shelter facility, Discharge medications: Antibiotics, steroids, nebs, take as directed, Continue home medicines as previously prescribed Assessment & Plan (1) Acute and chronic respiratory failure-he was treated with oxygen, antibiotics, nebulizers, steroids, improved to baseline, (2) Atrial fibrillation-resume appropriate home medications Eliquis, metoprolol, (3) acute on chronic CHF (congestive heart failure), NYHA class IV -treated with diuretics, spironolactone, (4) COPD exacerbation treated with nebs, steroids, oxygen, (5) CVA (cerebral vascular accident) fall precautions, (6) Depression resume appropriate home meds, (7) HTN (hypertension) resume appropriate home meds, (8) Pulmonary hypertension O2 2 L keep sats greater than 90%, (9) Tobacco abuse educated on tobacco Continue home medicines as previously prescribed GOAL: Clear understanding of disease process INSTRUCTIONS: Physician Discharge Instructions: -Follow-up with PCP in 1 to 2 weeks -Please call Dr. Parish at [phone] if any questions regarding hospital stay -Please call nursing station at [phone] if any nursing or medication questions -Return to the emergency room if symptoms worsen Diet: ADA, low sodium Activity: Fall precautions Vital Signs/Physical Exam: Temp Pulse Resp BP Pulse Ox 97.7 F 113 H 14 100/73 100 10/27/24 12:00 10/27/24 13:31 10/27/24 12:00 10/27/24 13:31 10/27/24 12:00 Laboratory Data at Discharge: WBC 5.30 thou/uL (4.3-10.9) 10/27/24 00:53 Hgb 9.4 g/dL (13.6-17.9) L 10/27/24 00:53 Hct 28.6 % (39.6-49.0) L 10/27/24 00:53 Plt Count 49 thou/uL (152-406) L 10/27/24 00:53 PT 14.5 SECONDS (9.4-12.5) H 10/22/24 17:45 INR 1.39 10/22/24 17:45 APTT 24.9 SECONDS (24.3-36.9) 10/22/24 17:45 Sodium 137 mEq/L (136-145) 10/27/24 00:53 Potassium 5.2 mEq/L (3.5-5.1) H 10/27/24 00:53 BUN 114 mg/dL (7-18) H 10/27/24 00:53 Creatinine 1.28 mg/dL (0.70-1.30) 10/27/24 00:53 Glucose 137 mg/dL (74-106) H 10/27/24 00:53 Phosphorus 6.0 mg/dL (2.5-4.9) H 10/26/24 04:23 Magnesium 3.5 mg/dL (1.6-2.4) H 10/27/24 00:53 Total Bilirubin 2.3 mg/dL (0.2-1.0) H 10/27/24 00:53 AST 457 U/L (15-37) H 10/27/24 00:53 ALT 2983 U/L (16-61) H 10/27/24 00:53 Alkaline Phosphatase 243 U/L (45-117) H 10/27/24 00:53 Home Medications: Citalopram [Celexa*] 10 mg PO DAILY 30 Days #30 tab 02/07/24 Ipratropium Neb [Atrovent*] 0.5 mg NEB [id number] PRN #120 amp 03/29/24 Thiamine HCl [Vitamin B-1*] 200 mg PO DAILY #60 tab 03/29/24 predniSONE [Deltasone*] 10 mg PO DAILY #5 tab 03/29/24 Acetaminophen [Tylenol*] 650 mg PO Q4HP PRN tab 10/02/24 Albuterol Neb [Proventil 0.083% Neb Soln] 2.5 mg NEB Q6HP PRN amp 10/02/24 Apixaban [Eliquis *] 2.5 mg PO BID 10/02/24 Bumetanide [Bumex*] 1 mg PO DAILY tab 10/02/24 Calcium Carbonate [Tums Regular*] 500 mg PO [id number] PRN tab 10/02/24 Docusate [Colace Cap*] 100 mg PO BID cap 10/02/24 Iron/FA/Vit B-Com W/C [Hemocyte Plus*] 1 tab PO DAILY WITH BREAKFAST tab 10/02/24 Magnesium Oxide [Mag 0X*] 400 mg PO DAILY tab 10/02/24 Metoprolol Succinate [Toprol Xl*] 12.5 mg PO [id number] tab 10/02/24 Midodrine HCl [Proamatine*] 10 mg PO TID tab 10/02/24 Polyethyl Gly 3350 [Glycolax*] 17 gm PO DAILY udbot 10/02/24 Spironolactone [Aldactone*] 25 mg PO DAILY tab 10/02/24 Vitamin D [Drisdol*] 50,000 unit PO Q7D@0900 cap 10/02/24 Physician Discharge Instructions: -DC IV and DC home -Follow-up with PCP in 1 to 2 weeks -Follow-up with Cardiology in 1 to 2 weeks -Please call Dr. Parish at [phone] if any questions regarding hospital stay -Please call nursing station at [phone] if any nursing or medication questions -Return to the emergency room if symptoms worsen Followup: NONE,NONE [Primary Care Provider] - Time spent managing pt's care (in minutes): 45
[2024-10-27] MEDS ORDERED: ALBUTEROL 2.5 MG/3 ML NEB SOL NEB PRN (16:48)
[2024-10-27] MEDS ORDERED: ACETAMINOPHEN 325 MG TABLET PO PRN (16:48)
[2024-10-27] MEDS ORDERED: IPRATROPIUM BROM 0.5MG/2.5ML NEB PRN (16:48)
[2024-10-27] MEDS ORDERED: CALCIUM CARBONATE CHEW 500MG TAB PO PRN (16:48)
[2024-10-27] MEDS: APIXABAN 2.5 MG TABLET PO SCH (21:10)
[2024-10-27] MEDS: DOCUSATE NA 100 MG CAP PO SCH (21:10)
[2024-10-27] MEDS: MIDODRINE HCL 5 MG TABLET PO SCH (21:10)
[2024-10-28 02:44] VITALS: BMI 17.2
[2024-10-28] MEDS: METOPROLOL XL 25 MG TAB PO SCH (05:10)
[2024-10-28 05:47] LABS: Absolute Lymphocytes (CBC) 0.1 K/uL (0.7-4.9); Absolute Monocytes 0.2 K/uL (0.1-1.3); Absolute Neutrophil 2.7 K/uL (1.8-8.0); Basophils % 0.3 % (0-1.3); Hematocrit 28.2 % (39.6-49.0); Hemoglobin 9.2 g/dL (13.6-17.9); Lymphocytes % 2.4 % (15.3-44.8); MCH 32.9 pg (27.0-35.0); MCHC 32.4 g/dL (32.0-36.0); MCV 101.4 fL (80-100); MPV 12.3 fL (7.6-11.3); Monocytes % 7.1 % (3.3-12.3); Neutrophils % 90.2 % (41.7-73.7); Nucleated RBC Absolute Count 0.1 (0-0); Nucleated Red Blood Cells % 2.8 % (0-0); Platelets 50 thou/uL (152-406); RBC Red Blood Cell Count 2.78 M/uL (4.33-5.43)
[2024-10-28 05:53] LABS: Albumin 2.7 g/dL (3.4-5.0); Anion Gap 7.4 mEq/L (5.0-15.0); Bilirubin Total 1.8 mg/dL (0.2-1.0); Globulin 2.7 g/dL (2.3-3.5); Magnesium 3.5 mg/dL (1.6-2.4); Potassium 5.4 mEq/L (3.5-5.1); Protein, Total 5.4 g/dL (6.4-8.2)
[2024-10-28] MEDS: POLYETHYL GLY 3350 17 GM/DOSE PO SCH (09:00)
[2024-10-28] MEDS ORDERED: predniSONE 10 MG TAB PO SCH (09:00)
[2024-10-28] MEDS: MAGNESIUM OXIDE 400 MG TAB PO SCH (09:00)
[2024-10-28] MEDS: BUMETANIDE 1 MG TABLET PO SCH (09:15)
[2024-10-28] MEDS: FE SULF/FA/VIT B COMP & C TAB PO SCH (09:15)
[2024-10-28] MEDS: predniSONE 20 MG TAB PO SCH (09:16)
[2024-10-28] MEDS: CITALOPRAM 10 MG TABLET PO SCH (09:16)
[2024-10-28] MEDS: THIAMINE HCL 100 MG TABLET PO SCH (09:16)
[2024-10-28] MEDS: ACETAZOLAMIDE 500 MG IV IV ONE (10:40)
[2024-10-28] MEDS: WATER FOR INJ,STERILE 10 ML IV ONE (10:40)
[2024-10-28 15:04] LABS: Blood Gas Oxyhemoglobin 96.6 % (94-97); Blood O2 Saturation 99.2 % (92-98.5)
[2024-10-28 15:05] LABS: Arterial Blood Carboxyhemoglob 1.7 % (0-1.5); Blood Gas THB 9.3 g/dl (12-18)
[2024-10-28] MEDS ORDERED: ALBUTEROL 2.5 MG/3 ML NEB SOL NEB PRN (15:31)
[2024-10-28] MEDS: D5 0.45 NS 1,000 ML IV SCH (15:33)
--- NOTE | 2024-10-28 18:13 | P.PN ---
Date of Service: 10/26/24 Subjective Patient continues to decline. Waiting for placement. Physical Examination - Vital Signs Reviewed - Physical Exam General: Alert, mild respiratory distress; cachectic and emaciated Respiratory: coarse breath sounds; extra [place] wheezing Cardiovascular: Regular rate/rhythm, systolic ejection murmur 2/6 Gastrointestinal: Normal bowel sounds, No tenderness Musculoskeletal: muscular atrophy Neurological: no focal deficits Assessment & Plan - Problems (Diagnosis) (1) Acute and chronic hypoxic and hypercapnic respiratory failure Current Visit: No Status: Acute (2) Atrial fibrillation Current Visit: No Status: Acute (3) CHF (congestive heart failure), NYHA class IV; ejection fraction of less than 10% Current Visit: No Status: Acute Congestive heart failure type: systolic Congestive heart failure chronicity: acute Qualified Code(s): I50.21 - Acute systolic (congestive) heart failure (4) COPD exacerbation; severe emphysema Current Visit: No Status: Acute (5) CVA (cerebral vascular accident) Onset Date: 03/14/18 Current Visit: No Status: Acute (6) Depression Current Visit: No Status: Acute (7) HTN (hypertension) Onset Date: 03/14/18 Current Visit: No Status: Acute (8) Pulmonary hypertension Current Visit: No Status: Acute (9) Tobacco abuse Onset Date: 03/14/18 Current Visit: No Status: Acute (10) Cachexia Current Visit: Yes Status: Acute (11) Emaciated Current Visit: Yes Status: Acute (12) Cardiac cirrhosis Current Visit: Yes Status: Acute (13) CEE (acute kidney injury) Current Visit: No Status: Acute - Plan continue with plan of care as mentioned below: 1. Patient with acute on chronic hypoxic respiratory failure; patient signed himself out of the [place]. Patient's prognosis is poor. Patient has continued to decline. Patient does not want to be resuscitated. Continue with nebs, steroids, and antibiotics. Plan to wear BiPAP at night. 2. Acute on chronic congestive heart failure with ejection fraction of less than 10%; continue with gentle diuresing. Continue with cardiac meds. 3. Cardiac cirrhosis; continue monitoring LFTs. Patient has recurrent elevation in his LFTs because of his severe cardiac disease and tricuspid regurgitation. 4. CEE; prerenal azotemia; Along with cardiorenal syndrome. Patient with ejection fraction less than 10%. Renal perfusion pressure is possibly very minimal. Prognosis remains very poor. Patient not eating or drinking much. Patient does not want any further aggressive intervention performed at this time. 5. Atrial fibrillation; continue with medication for rate control Discharge Plan: Long-Term/hospice Plan to discharge in: Greater than 2 days - Advance Directives Does patient have a Living Will: No Does patient have a Durable POA for Healthcare: Yes - Code Status/Comfort Care Code Status Assessed: Yes Code Status: DNAR Critical Care: No Time Spent Managing PTS Care (In Minutes): 35
--- NOTE | 2024-10-29 04:17 | P.PN ---
Date of Service: 10/27/24 Subjective patient remains cachectic and emaciated. Patient not eating much. Patient continues to decline. Prognosis remains very poor. Patient is very lethargic. Try to contact daughter to update her on clinical status. Physical Examination - Vital Signs Reviewed - Physical Exam General: Alert, mild respiratory distress; cachectic and emaciated Respiratory: coarse breath sounds; End expiratory wheezing Cardiovascular: Regular rate/rhythm, systolic ejection murmur 2/6 Gastrointestinal: Normal bowel sounds, No tenderness Musculoskeletal: muscular atrophy Neurological: no focal deficits Assessment & Plan - Problems (Diagnosis) (1) Acute and chronic hypoxic and hypercapnic respiratory failure Current Visit: No Status: Acute (2) Atrial fibrillation Current Visit: No Status: Acute (3) CHF (congestive heart failure), NYHA class IV; ejection fraction of less than 10% Current Visit: No Status: Acute Congestive heart failure type: systolic Congestive heart failure chronicity: acute Qualified Code(s): I50.21 - Acute systolic (congestive) heart failure (4) COPD exacerbation; severe emphysema Current Visit: No Status: Acute (5) CVA (cerebral vascular accident) Onset Date: 03/14/18 Current Visit: No Status: Acute (6) Depression Current Visit: No Status: Acute (7) HTN (hypertension) Onset Date: 03/14/18 Current Visit: No Status: Acute (8) Pulmonary hypertension Current Visit: No Status: Acute (9) Tobacco abuse Onset Date: 03/14/18 Current Visit: No Status: Acute (10) Cachexia Current Visit: Yes Status: Acute (11) Emaciated Current Visit: Yes Status: Acute (12) Cardiac cirrhosis Current Visit: Yes Status: Acute (13) CEE (acute kidney injury) Current Visit: No Status: Acute - Plan Continue with plan of care as mentioned below: 1. Patient with acute on chronic hypoxic respiratory failure; [place] Patient's prognosis is poor. Continue with O2 per protocol. Continue with BiPAP at night. Patient is waiting for placement at half-way facility. However, he may benefit from hospice care. 2. Acute on chronic congestive heart failure with ejection fraction of less than 10%; continue with gentle diuresing. Continue with cardiac meds. Patient with severe pulmonary hypertension. Patient with right-sided heart failure with severe tricuspid regurgitation. 3. Cardiac cirrhosis; continue monitoring LFTs. Patient has recurrent elevation in his LFTs because of his severe cardiac disease and tricuspid regurgitation. 4. CEE; prerenal azotemia; Along with cardiorenal syndrome. Patient with ejection fraction less than 10%. Renal perfusion pressure is possibly very minimal. Prognosis remains very poor. Patient not eating or drinking much. Patient does not want any further aggressive intervention performed at this time. 5. Atrial fibrillation; continue with medication for rate control Discharge Plan: Retirement/hospice Plan to discharge in: Greater than 2 days - Advance Directives Does patient have a Living Will: No Does patient have a Durable POA for Healthcare: Yes - Code Status/Comfort Care Code Status Assessed: Yes Code Status: Full Code Critical Care: No Time Spent Managing PTS Care (In Minutes): 20
--- NOTE | 2024-10-29 04:36 | P.PN ---
Date of Service: 10/28/24 Subjective Spoke with patient in detail and he does not want anything aggressive done at this time. Patient just wanted comfort measures performed. He states that he Feels that he is dying. He does not want any aggressive intervention. Patient will be a DNAR. May need to proceed with inpatient hospice if he continues to decline. Left a message with his daughter to update her on patient's clinical status. Physical Examination - Vital Signs Reviewed - Physical Exam General: Alert, mild respiratory distress; cachectic and emaciated Respiratory: coarse breath sounds; extra [place] wheezing Cardiovascular: Regular rate/rhythm, systolic ejection murmur 2/6 Gastrointestinal: Normal bowel sounds, No tenderness Musculoskeletal: muscular atrophy Neurological: no focal deficits Assessment & Plan - Problems (Diagnosis) (1) Acute and chronic hypoxic and hypercapnic respiratory failure Current Visit: No Status: Acute (2) Atrial fibrillation Current Visit: No Status: Acute (3) CHF (congestive heart failure), NYHA class IV; ejection fraction of less than 10% Current Visit: No Status: Acute Congestive heart failure type: systolic Congestive heart failure chronicity: acute Qualified Code(s): I50.21 - Acute systolic (congestive) heart failure (4) COPD exacerbation; severe emphysema Current Visit: No Status: Acute (5) CVA (cerebral vascular accident) Onset Date: 03/14/18 Current Visit: No Status: Acute (6) Depression Current Visit: No Status: Acute (7) HTN (hypertension) Onset Date: 03/14/18 Current Visit: No Status: Acute (8) Pulmonary hypertension Current Visit: No Status: Acute (9) Tobacco abuse Onset Date: 03/14/18 Current Visit: No Status: Acute (10) Cachexia Current Visit: Yes Status: Acute (11) Emaciated Current Visit: Yes Status: Acute (12) Cardiac cirrhosis Current Visit: Yes Status: Acute (13) CEE (acute kidney injury) Current Visit: No Status: Acute - Plan continue with plan of care as mentioned below: 1. patient with acute on chronic hypoxic respiratory failure; [place] Patient's prognosis is poor. Patient does not have much time as he has continued to decline. Patient does not want to be resuscitated. Continue with nebs, steroids, and antibiotics. 2. acute on chronic congestive heart failure with ejection fraction of less than 10%; continue with gentle diuresing. 3. Cardiac cirrhosis; continue monitoring LFTs. Patient has recurrent elevation in his LFTs because of his severe cardiac disease and tricuspid regurgitation. 4. CEE; prerenal azotemia; Along with cardiorenal syndrome. Patient with ejection fraction less than 10%. Renal perfusion pressure is possibly very minimal. Prognosis remains very poor. Patient not eating or drinking much. Patient does not want any further aggressive intervention performed at this time. 5. Atrial fibrillation; continue with medication for rate control Discharge Plan: Care Home/hospice Plan to discharge in: Greater than 2 days - Advance Directives Does patient have a Living Will: No Does patient have a Durable POA for Healthcare: Yes - Code Status/Comfort Care Code Status Assessed: Yes Code Status: Full Code Critical Care: No Time Spent Managing PTS Care (In Minutes): 35
--- NOTE | 2024-10-29 04:48 | P.PN ---
Date of Service: 10/25/24 Subjective Patient continues to be very lethargic and patient is not eating much. Patient has a poor prognosis. Physical Examination - Vital Signs Reviewed - Physical Exam General: Alert, mild respiratory distress; cachectic and emaciated Respiratory: coarse breath sounds; extra [place] wheezing Cardiovascular: Regular rate/rhythm, systolic ejection murmur /6 Gastrointestinal: Normal bowel sounds, No tenderness Musculoskeletal: muscular atrophy Neurological: no focal deficits Assessment & Plan - Problems (Diagnosis) (1) Acute and chronic hypoxic and hypercapnic respiratory failure Current Visit: No Status: Acute (2) Atrial fibrillation Current Visit: No Status: Acute (3) CHF (congestive heart failure), NYHA class IV; ejection fraction of less than 10% Current Visit: No Status: Acute Congestive heart failure type: systolic Congestive heart failure chronicity: acute Qualified Code(s): I50.21 - Acute systolic (congestive) heart failure (4) COPD exacerbation; severe emphysema Current Visit: No Status: Acute (5) CVA (cerebral vascular accident) Onset Date: 03/14/18 Current Visit: No Status: Acute (6) Depression Current Visit: No Status: Acute (7) HTN (hypertension) Onset Date: 03/14/18 Current Visit: No Status: Acute (8) Pulmonary hypertension Current Visit: No Status: Acute (9) Tobacco abuse Onset Date: 03/14/18 Current Visit: No Status: Acute (10) Cachexia Current Visit: Yes Status: Acute (11) Emaciated Current Visit: Yes Status: Acute (12) Cardiac cirrhosis Current Visit: Yes Status: Acute (13) CEE (acute kidney injury) Current Visit: No Status: Acute - Plan continue with plan of care as mentioned below: 1. Patient with acute on chronic hypoxic respiratory failure; patient signed himself out of the [place]. Patient's prognosis is poor. Patient has continued to decline. Patient does not want to be resuscitated. Continue with nebs, steroids, and antibiotics. Plan to wear BiPAP at night. 2. Acute on chronic congestive heart failure with ejection fraction of less than 10%; continue with gentle diuresing. Continue with cardiac meds. 3. Cardiac cirrhosis; continue monitoring LFTs. Patient has recurrent elevation in his LFTs because of his severe cardiac disease and tricuspid regurgitation. 4. CEE; prerenal azotemia; Along with cardiorenal syndrome. Patient with e jection fraction less than 10%. Renal perfusion pressure is possibly very minimal. Prognosis remains very poor. Patient not eating or drinking much. Patient does not want any further aggressive intervention performed at this time. 5. Atrial fibrillation; continue with medication for rate control . May hold off p.o. anticoagulation. Discharge Plan: [facility]/hospice Plan to discharge in: Greater than 2 days - Advance Directives Does patient have a Living Will: No Does patient have a Durable POA for Healthcare: Yes - Code Status/Comfort Care Code Status Assessed: Yes Code Status: DNAR Critical Care: No Time Spent Managing PTS Care (In Minutes): 35
--- NOTE | 2024-10-29 04:49 | P.PN ---
Date of Service: 10/24/24 Subjective Patient continues to do poorly. Patient is not improving. Patient's long- term prognosis is poor. Will talk to family and patient about resuscitation status. Physical Examination - Vital Signs Reviewed - Physical Exam General: Alert, mild respiratory distress; cachectic and emaciated Respiratory: coarse breath sounds; End-expiratory wheezing Cardiovascular: Regular rate/rhythm, systolic ejection murmur 2/6 Gastrointestinal: Normal bowel sounds, No tenderness Musculoskeletal: muscular atrophy Neurological: no focal deficits Assessment & Plan - Problems (Diagnosis) (1) Acute and chronic hypoxic and hypercapnic respiratory failure Current Visit: No Status: Acute (2) Atrial fibrillation Current Visit: No Status: Acute (3) CHF (congestive heart failure), NYHA class IV; ejection fraction of less than 10% Current Visit: No Status: Acute Congestive heart failure type: systolic Congestive heart failure chronicity: acute Qualified Code(s): I50.21 - Acute systolic (congestive) heart failure (4) COPD exacerbation; severe emphysema Current Visit: No Status: Acute (5) CVA (cerebral vascular accident) Onset Date: 03/14/18 Current Visit: No Status: Acute (6) Depression Current Visit: No Status: Acute (7) HTN (hypertension) Onset Date: 03/14/18 Current Visit: No Status: Acute (8) Pulmonary hypertension Current Visit: No Status: Acute (9) Tobacco abuse Onset Date: 03/14/18 Current Visit: No Status: Acute (10) Cachexia Current Visit: Yes Status: Acute (11) Emaciated Current Visit: Yes Status: Acute (12) Cardiac cirrhosis Current Visit: Yes Status: Acute (13) CEE (acute kidney injury) Current Visit: No Status: Acute - Plan continue with plan of care as mentioned below: 1. Patient with acute on chronic hypoxic respiratory failure; patient signed himself out of the [place]. Patient's prognosis is poor. Patient has continued to decline. Patient does not want to be resuscitated. Continue with nebs, steroids, and antibiotics. will check BiPAP the patient is slightly lethargic. He is very cachectic and emaciated and his prognosis is poor. 2. Acute on chronic congestive heart failure with ejection fraction of less than 10%; continue with gentle diuresing. Continue with cardiac meds. 3. Cardiac cirrhosis; continue monitoring LFTs. Patient has recurrent elevation in his LFTs because of his severe cardiac disease and tricuspid regurgitation. 4. CEE; prerenal azotemia; Along with cardiorenal syndrome. Patient with ejection fraction less than 10%. Renal perfusion pressure is possibly very minimal. Prognosis remains very poor. Patient not eating or drinking much. Patient does not want any further aggressive intervention performed at this time. 5. Atrial fibrillation; continue with medication for rate control . May hold off p.o. anticoagulation. Discharge Plan: Skilled Nursing/hospice Plan to discharge in: Greater than 2 days - Advance Directives Does patient have a Living Will: No Does patient have a Durable POA for Healthcare: Yes - Code Status/Comfort Care Code Status Assessed: Yes Code Status: DNAR Critical Care: No Time Spent Managing PTS Care (In Minutes): 35
[2024-10-29 05:03] LABS: Albumin 2.7 g/dL (3.4-5.0); Anion Gap 8.6 mEq/L (5.0-15.0); Bilirubin Total 1.8 mg/dL (0.2-1.0); Globulin 2.7 g/dL (2.3-3.5); Potassium 4.6 mEq/L (3.5-5.1); Protein, Total 5.4 g/dL (6.4-8.2)
[2024-10-29 08:30] VITALS: O2SAT 100
[2024-10-29] MEDS: ACETAZOLAMIDE 500 MG IV IV SCH (09:40)
[2024-10-29] MEDS: ALBUMIN HUMAN 25% 100 ML IV ONE (10:54)
--- NOTE | 2024-10-29 10:54 | P.PN ---
Subjective Date of Service: 10/29/24 Chief Complaint: generalized weakness Physical Examination - Vital Signs Temperature: 97.3 F Blood Pressure: 106/59 Pulse: 91 Respirations: 16 Pulse Ox (%): 94 - Studies Medications List Reviewed: Yes Assessment And Plan - Plan This is a 64 years old gentleman with complex medical problem including end- stage lung disease on home oxygen, hypertension, coronary artery disease, paroxysmal A-fib, congestive heart failure status post AICD, hypertension, old stroke, numerous hospitalization who presented to emergency room for evaluation of shortness of breath #1 acute on chronic hypoxic and hypercapnic respiratory failure related to # 2 #2 bilateral pneumonia of unknown etiology with acute exacerbation of COPD leading to end-stage lung disease #3 de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, dilated cardi omyopathy, [place] heart association heart failure class IV #4 Permanent atrial fibrillation with controlled ventricle response #5 cardiac cirrhosis with ischemic hepatitis and pancytopenia #6 anemia of chronic disease #7 pulmonary cachexia #8 cardiorenal syndrome #9 noninfected sacral pressure ulcer stage III A peer to peer review for SNF placement denied by his insurance, no significant change on chest x-ray, no improvement in patient condition in the past 1 week, patient seems to be eligible for inpatient hospice. I will order social work manager request for evaluation of inpatient hospice. In the meantime continue BiPAP and nasal cannula, APD 20 mg twice daily, scheduled nebulizer his CODE STATUS is in DNR
[2024-10-29 16:15] VITALS: BP 89/50; TEMP 96.1
--- NOTE | 2024-10-29 17:23 | P.DS ---
Admission Date: 10/24/24 Discharge Date: 10/29/24 Disposition: HOSPICE-MEDICAL FACILITY Discharge Condition: SERIOUS Reason for Admission: generalized weakness Brief History of Present Illness: This is a 64 years old gentleman with complex medical problem including end- stage lung disease on home oxygen, hypertension, coronary artery disease, paroxysmal A-fib, congestive heart failure status post AICD, hypertension, old stroke, numerous hospitalization who presented to emergency room for evaluation of shortness of breath Hospital Course: He was treated with oxygen therapy via nasal cannula and BiPAP, empiric antibiotics, IV steroid and scheduled nebulizer but no significant improvement clinically as well as radiologically. He continued to decline. SNF placement was denied by his insurance. Patient requested comfort care only. Inpatient hospice was consulted. Patient was accepted and his care transferred to inpatient care on October 29, 2024. #1 acute on chronic hypoxic and hypercapnic respiratory failure related to # 2 #2 bilateral pneumonia of unknown etiology with acute exacerbation of COPD leading to end-stage lung disease #3 de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, dilated cardiomyopathy, [place] heart association heart failure class IV #4 Permanent atrial fibrillation with controlled ventricle response #5 cardiac cirrhosis with ischemic hepatitis and pancytopenia #6 anemia of chronic disease #7 pulmonary cachexia #8 cardiorenal syndrome #9 noninfected sacral pressure ulcer stage III Vital Signs/Physical Exam: Temp Pulse Resp BP Pulse Ox 96.1 F L 58 13 89/50 L 97 10/29/24 16:00 10/29/24 16:00 10/29/24 16:00 10/29/24 16:00 10/29/24 16:00 Laboratory Data at Discharge: WBC 3.00 thou/uL (4.3-10.9) L 10/28/24 05:07 Hgb 9.2 g/dL (13.6-17.9) L 10/28/24 05:07 Hct 28.2 % (39.6-49.0) L 10/28/24 05:07 Plt Count 50 thou/uL (152-406) L 10/28/24 05:07 PT 14.5 SECONDS (9.4-12.5) H 10/22/24 17:45 INR 1.39 10/22/24 17:45 APTT 24.9 SECONDS (24.3-36.9) 10/22/24 17:45 Sodium 141 mEq/L (136-145) 10/29/24 04:13 Potassium 4.6 mEq/L (3.5-5.1) D 10/29/24 04:13 BUN 121 mg/dL (7-18) H 10/29/24 04:13 Creatinine 1.25 mg/dL (0.70-1.30) 10/29/24 04:13 Glucose 179 mg/dL (74-106) H 10/29/24 04:13 Phosphorus 6.0 mg/dL (2.5-4.9) H 10/26/24 04:23 Magnesium 3.5 mg/dL (1.6-2.4) H 10/28/24 05:07 Total Bilirubin 1.8 mg/dL (0.2-1.0) H 10/29/24 04:13 AST 159 U/L (15-37) H 10/29/24 04:13 ALT 1694 U/L (16-61) H 10/29/24 04:13 Alkaline Phosphatase 240 U/L (45-117) H 10/29/24 04:13 Home Medications: Ipratropium Neb [Atrovent*] 0.5 mg NEB [id number] PRN #120 amp 03/29/24 predniSONE [Deltasone*] 10 mg PO DAILY #5 tab 03/29/24 Acetaminophen [Tylenol*] 650 mg PO Q4HP PRN tab 10/02/24 Albuterol Neb [Proventil 0.083% Neb Soln] 2.5 mg NEB Q6HP PRN amp 10/02/24 Midodrine HCl [Proamatine*] 10 mg PO TID tab 10/02/24 Spironolactone [Aldactone*] 25 mg PO DAILY tab 10/02/24 Hydrocodone 5/APAP 325 [[place] 5/325*] 1 tab PO Q6H PRN tab 10/27/24 Midodrine HCl [Proamatine*] 5 mg PO TID PRN tab 10/27/24 clonazePAM [Klonopin*] 0.5 mg PO TID tab 10/27/24 Physician Discharge Instructions: Patient is a 64 year old male with chronic respiratory failure, COPD ON 2L at home. He presents to the ER complaining of abdominal discomfort and constipation. Associated symptoms include malaise. Patient is a poor historian. He also reports urinary frequency. UA still pending. During my evaluation, patient appeared cachectic, chronically ill. He has a Varma catheter in place. Chest imaging demonstrates emphysematous changes. He is on 2.5 L via NC tolerating diet, stable to discharge to fdc facility, Discharge medications: Antibiotics, steroids, nebs, take as directed, Continue home medicines as previously prescribed Assessment & Plan (1) Acute and chronic respiratory failure-he was treated with oxygen, antibiotics, nebulizers, steroids, improved to baseline, (2) Atrial fibrillation-resume appropriate home medications Eliquis, metoprolol, (3) acute on chronic CHF (congestive heart failure), NYHA class IV -treated with diuretics, spironolactone, (4) COPD exacerbation treated with nebs, steroids, oxygen, (5) CVA (cerebral vascular accident) fall precautions, (6) Depression resume appropriate home meds, (7) HTN (hypertension) resume appropriate home meds, (8) Pulmonary hypertension O2 2 L keep sats greater than 90%, (9) Tobacco abuse educated on tobacco Continue home medicines as previously prescribed GOAL: Clear understanding of disease process INSTRUCTIONS: Physician Discharge Instructions: -Follow-up with PCP in 1 to 2 weeks -Please call Dr. Parish at [phone] if any questions regarding hospital stay -Please call nursing station at [phone] if any nursing or medication questions -Return to the emergency room if symptoms worsen Diet: ADA, low sodium Activity: Fall precautions Followup: NONE,NONE [Primary Care Provider] -
--- NOTE | 2024-10-29 17:43 | PN ---
Date of Progress Note: 10/29/2024 Reason For Service: Sacral decubitus ulcer. Subjective: We had a discussion today and also discussion with the immigration case manager. There is a possib ility of him going to hospice. In the meantime, we believe he should still use Santyl, frequent turn ing, nutrition. If by any chance, he is not on hospice, then we will like to see if he can eventuall y, when the area gets cleaner and trimmer, use a wound VAC to help assist on the healing. So far, he is stable f rom a sacral standpoint. If the Santyl does not do the job that we want to, then there is always a p ossibility of surgical intervention. We will see when we check the status of his health tomorrow. BERNY/ION Voice ID: [id number] Report ID: [id number]
--- NOTE | 2024-10-30 12:51 | EKG ---
Test Date: 2024-10-27 Test Time: 08:18:12 Welding Machine Feeder: Beau Jasso MEASUREMENT RESULTS: Intervals: Rate: 111 ND: 140 QRSD: 104 QT: 362 QTc: 492 Chana: P: 86 ND: 140 QRS: 70 T: 73 INTERPRETIVE STATEMENTS: Sinus tachycardia with fusion complexes Biatrial enlargement Left ventricular hypertrophy ST & T wave abnormality, consider lateral ischemia Abnormal ECG Compared to ECG 10/22/2024 20:50:19 Fusion complex(es) now present Atrial abnormality now present ST (T wave) deviation now present Atrial premature complex(es) no longer present T-wave abnormality no longer present Possible ischemia still present Electronically Signed On 10-30-24 12:45:12 SERVER MANAGER by Guevara Shepherd
[2024-11-03] MEDS ORDERED: DRISDOL (VITAMIN D=ERGOCALCIFEROL) 50000 UNIT CAP PO SCH (09:00)
== END 2024-10-29 17:41 | disposition hospice, inpatient (51) | DRG 193 ==
LOC: ER 15:33 → ERHOLD 22:41 → 4TH 10-23 14:27 → 2ND 10-23 22:56 → OBSVTOIN 10-24 02:11
PROVIDERS: ADMIT Internal Medicine; ATTEND Internal Medicine
PROC: 5A09457 Assistance with Respiratory Ventilation, 24-96 Consecutive Hours, Continuous Positive Airway Pressure (ICD-10-PCS; principal; 2024-10-28)
PROC: 4A033R1 Measurement of Arterial Saturation, Peripheral, Percutaneous Approach (ICD-10-PCS; 2024-10-28)
DX: J18.9 Pneumonia, unspecified organism (principal); E43 Unspecified severe protein-calorie malnutrition; L89.154 Pressure ulcer of sacral region, stage 4; J96.22 Acute and chronic respiratory failure with hypercapnia; J96.21 Acute and chronic respiratory failure with hypoxia; I50.23 Acute on chronic systolic (congestive) heart failure; K72.00 Acute and subacute hepatic failure without coma; J44.1 Chronic obstructive pulmonary disease with (acute) exacerbation; R64 Cachexia; Z68.1 Body mass index [BMI] 19.9 or less, adult; N17.9 Acute kidney failure, unspecified; J44.0 Chronic obstructive pulmonary disease with (acute) lower respiratory infection; I48.21 Permanent atrial fibrillation; D61.818 Other pancytopenia; I42.0 Dilated cardiomyopathy; I11.0 Hypertensive heart disease with heart failure; K59.00 Constipation, unspecified; E78.5 Hyperlipidemia, unspecified; I27.20 Pulmonary hypertension, unspecified; I34.0 Nonrheumatic mitral (valve) insufficiency; J43.9 Emphysema, unspecified; F32.A Depression, unspecified; I07.1 Rheumatic tricuspid insufficiency; K76.1 Chronic passive congestion of liver; I25.2 Old myocardial infarction; F17.210 Nicotine dependence, cigarettes, uncomplicated; Z90.49 Acquired absence of other specified parts of digestive tract; Z66 Do not resuscitate; Z51.5 Encounter for palliative care; Z86.73 Personal history of transient ischemic attack (TIA), and cerebral infarction without residual deficits; Z99.81 Dependence on supplemental oxygen; Z79.52 Long term (current) use of systemic steroids; Z79.01 Long term (current) use of anticoagulants; Z79.899 Other long term (current) drug therapy; Z95.810 Presence of automatic (implantable) cardiac defibrillator; Z91.199 Patient's noncompliance with other medical treatment and regimen due to unspecified reason
CPT/HCPCS: 36415; 36600; 71045; 74176; 80048; 80053; 80076; 81001; 82805; 82947; 83735; 83880; 84100; 84484; 85025; 85610; 85730; 86850; 86870; 86900; 86901; 87070; 87077; 87186; 87205; 93005; 94640; 96374; 97161; 97164; 97530; 99285; G0378; J0696; J1120; J2919; J3590; J7030; J7512; J7613; J7644; J7799; P9047

== ENCOUNTER 2024-10-29 18:24 | Inpatient (IN) | payer OTHER ==
[2024-10-29] MEDS ORDERED: ONDANSETRON 4 MG (ODT) TAB PO PRN (20:15)
[2024-10-29] MEDS ORDERED: BISACODYL 10 MG RECTAL SUPP PR PRN (20:15)
[2024-10-29] MEDS ORDERED: ACETAMINOPHEN 650MG/RECT SUPP PR PRN (20:15)
[2024-10-29] MEDS: SCOPOLAMINE HYDROBROMIDE PATCH TD SCH (21:56)
[2024-10-30] MEDS: LORazepam 2 MG/ML VIAL IV PRN (00:21)
[2024-10-30 00:57] VITALS: BMI 23.6
[2024-10-30] MEDS: HYDROMORPHONE HCL 2 MG/ML inj IV PRN (03:14)
[2024-10-30] MEDS: COLLAGENASE 30 GM OINTMENT TOP SCH (09:00)
--- NOTE | 2024-10-30 18:28 | P.HP ---
Patient History Date of Service: 10/29/24 Reason for admission: HOSPICE ADMISSION FOR END STAGE COPD History of Present Illness: THIERRY OSUNA HAS SEVERE COPD AND HAS OXYGEN AT 2 LT AT HOME. HE COMES WITH DYSPNEA AND ABDOMEN PAIN. HE FAILS TO IMPROVE AND FAMILY WANTED HOSPICE CARE. THIS IS APPROPRIATE. Allergies No Known Allergies Allergy (Verified 10/23/24 16:47) Home Medications: Ipratropium Neb [Atrovent*] 0.5 mg NEB [id number] PRN #120 amp 03/29/24 predniSONE [Deltasone*] 10 mg PO DAILY #5 tab 03/29/24 Acetaminophen [Tylenol*] 650 mg PO Q4HP PRN tab 10/02/24 Albuterol Neb [Proventil 0.083% Neb Soln] 2.5 mg NEB Q6HP PRN amp 10/02/24 Midodrine HCl [Proamatine*] 10 mg PO TID tab 10/02/24 Spironolactone [Aldactone*] 25 mg PO DAILY tab 10/02/24 Hydrocodone 5/APAP 325 [[place] 5/325*] 1 tab PO Q6H PRN tab 10/27/24 Midodrine HCl [Proamatine*] 5 mg PO TID PRN tab 10/27/24 clonazePAM [Klonopin*] 0.5 mg PO TID tab 10/27/24 - Past Medical/Surgical History Diabetic: No -: COPD -: Paroxysmal Afib -: HTN -: Tobacco abuse -: TIA -: skull fx -: defibrilator -: Home O2 -: Hx Hyponatremia (Dr. Hargrove/ Dr. Menjivar) -: BUE thromus started eliquis -: SEVERELY CHF, EF 10-15% -: Appendectomy -: ICM with AICD Psychosocial/ Personal History: Patient lives with a girlfriend at home - Family History Father -: Diabetes Mother -: Diabetes - Social History Smoking Status: Former smoker Alcohol use: No CD- Drugs: No Caffeine use: No Place of Residence: Home Review of Systems is unable to be obtained Physical Examination - Vital Signs Temperature: 97.5 F Blood Pressure: 70/55 Pulse: 98 Respirations: 10 Pulse Ox (%): 44 - Physical Exam General: Cachectic, Moderate distress, Confused, Other Neck: Supple Respiratory: Diminished, Other (RAPID BREATHING.) Neurological: Other (WAS ABLE TO OPEN EYES BUT WENT BACK TO SLEEP.) Assessment and Plan - Problems (Diagnosis) (1) COPD (chronic obstructive pulmonary disease) Onset Date: 03/14/18 Current Visit: No Status: Acute Plan: COMFORT CARE HOSPICE PAIN MEDS ANXIETY MEDS SCOP PATCH NO FAMILY AT BEDSIDE. Qualifiers: - Advance Directives Does patient have a Living Will: No Does patient have a Durable POA for Healthcare: Yes
[2024-10-31 08:53] VITALS: BP 71/41; TEMP 97.4
--- NOTE | 2024-10-31 12:12 | P.PN ---
Subjective Date of Service: 10/30/24 Chief Complaint: OBTUNDED, SEMICOMATOSE. Subjective: Worsening HE IS NOT ABLE TO BE AROUSED. BREATHING IS RAPID WITH PAUSES. Review of Systems is unable to be obtained General: Weakness Physical Examination - Vital Signs Temperature: 97.4 F Blood Pressure: 71/41 Pulse: 95 Respirations: 10 Pulse Ox (%): 86 - Physical Exam General: Cachectic, Moderate distress, Confused HEENT: Atraumatic, PERRLA, EOMI Neck: Supple, JVD not distended Respiratory: Diminished Cardiovascular: Regular rate/rhythm, Normal S1 S2 Gastrointestinal: Normal bowel sounds, No tenderness Musculoskeletal: No tenderness Integumentary: No rashes Neurological: Normal speech, Normal tone, Normal affect Lymphatics: No axilla or inguinal lymphadenopathy - Studies Medications List Reviewed: Yes Assessment And Plan - Current Problems (Diagnosis) (1) COPD (chronic obstructive pulmonary disease) Onset Date: 03/14/18 Current Visit: No Status: Acute Plan: COMFORT CARE HOSPICE PAIN MEDS ANXIETY MEDS SCOP PATCH NO FAMILY AT BEDSIDE. CONT MEDS. Qualifiers:
--- NOTE | 2024-11-03 10:45 | P.DS ---
Admission Date: 10/29/24 Discharge Date: 11/03/24 Disposition: Reason for Admission: OBTUNDED, SEMICOMATOSE. - Problems (1) COPD (chronic obstructive pulmonary disease) Onset Date: 03/14/18 Status: Acute Qualifiers: Brief History of Present Illness: THIERRY OSUNA HAS SEVERE COPD AND HAS OXYGEN AT 2 LT AT HOME. HE COMES WITH DYSPNEA AND ABDOMEN PAIN. HE FAILS TO IMPROVE AND FAMILY WANTED HOSPICE CARE. THIS IS APPROPRIATE. Hospital Course: MR. GUADARRAMA EXPECTED WITH SEVERE COPD. HE WAS ON HOSPICE AND WAS GETTING ROUTINE MEDS TO CONTROL TERMINAL SYMPTOMS. Vital Signs/Physical Exam: Temp Pulse Resp BP Pulse Ox 97.4 F 95 H 10 L 71/41 L 86 L 10/31/24 12:11 10/31/24 12:11 10/31/24 12:11 10/31/24 12:11 10/31/24 12:11 Home Medications: Ipratropium Neb [Atrovent*] 0.5 mg NEB [id number] PRN #120 amp 03/29/24 predniSONE [Deltasone*] 10 mg PO DAILY #5 tab 03/29/24 Acetaminophen [Tylenol*] 650 mg PO Q4HP PRN tab 10/02/24 Albuterol Neb [Proventil 0.083% Neb Soln] 2.5 mg NEB Q6HP PRN amp 10/02/24 Midodrine HCl [Proamatine*] 10 mg PO TID tab 10/02/24 Spironolactone [Aldactone*] 25 mg PO DAILY tab 10/02/24 Hydrocodone 5/APAP 325 [[place] 5/325*] 1 tab PO Q6H PRN tab 10/27/24 Midodrine HCl [Proamatine*] 5 mg PO TID PRN tab 10/27/24 clonazePAM [Klonopin*] 0.5 mg PO TID tab 10/27/24 Followup: Oscar Lackey MD [Primary Care Provider] -
== END 2024-10-31 10:48 | disposition expired | DRG 951 ==
LOC: 2ND 18:24
PROVIDERS: ADMIT Internal Medicine; ATTEND Internal Medicine
DX: Z51.5 Encounter for palliative care (principal)
CPT/HCPCS: J1171; J3590